=== PATIENT | male | born 1955 | race Caucasian/White ===

== ENCOUNTER 2016-06-14 14:17 | Emergency (ER) | payer OTHER ==
[2016-06-14 14:27] VITALS: BMI 32.0
--- NOTE | 2016-06-14 15:23 | PDOC ---
History of Present Illness - General Chief Complaint: Alcohol intoxication Stated Complaint: INTOX Time Seen by Provider: 06/14/16 14:41 History Source: Patient Exam Limitations: Intoxication - History of Present Illness Initial Comments: 06/14/16 15:22 61y M hx of chronic etoh abuse, dvt, brought in for intoxication pt is arousable to verbal stimulus has no complaints denies any trauma, headache, dizziness, cp, sob, cough Past History - Past History Allergies/Adverse Reactions: Allergies Fish Containing Products Allergy (Intermediate, Verified 06/14/16 14:24) Rash Home Medications: Ambulatory Orders NK [No Known Home Medication] 06/09/16 Immunization Status Up to Date: Yes Tetanus Status: Unknown - Social History Smoking History: No Smoking Status: Never smoked Number of Cigarettes Smoked Per Day: 0 Number of Cigars Per Day: 0 Review of Systems - Review of Systems Able to Perform ROS?: Yes Comments:: 06/16/16 02:17 unable to obtain due to intoxiation *Physical Exam - Vital Signs Last Vital Signs Temp Pulse Resp BP Pulse Ox 98.0 F 80 20 122/75 97 06/14/16 14:21 06/14/16 14:21 06/14/16 14:21 06/14/16 14:21 06/14/16 14:21 - Physical Exam Comments: GENERAL: The patient is sleepy, arousable to verbal stimulus, etoh on breath, dischevelled HEAD: Normocephalic, atraumatic. EYES: extraocular movements intact, sclera anicteric, conjunctiva clear. ENT: Normal voice, Moist mucous membranes. NECK: no focal tenderness LUNGS: Breath sounds equal, HEART: Regular rate and rhythm, ABDOMEN: Soft, nontender, NEUROLOGICAL: No facial assymetry, Normal speech, moving all 4 extremities spontaneously PSYCH: Normal mood, normal affect. SKIN: Warm, Dry, normal turgor, Medical Decision Making - Medical Decision Making 06/15/16 19:19 awaiting sobriety, no signs of trauma signed out to dr. miramontes to reassess the patient *DC/Admit/Observation/Transfer Diagnosis at time of Disposition: Alcohol intoxication, Alcohol abuse - Discharge Dispostion Disposition: HOME Condition at time of disposition: Stable - Patient Instructions Printed Discharge Instructions: DI for Alcohol Abuse Additional Instructions: Follow-up with primary care physician. Return to the emergency department if symptoms persist, worsen, or new symptoms arise. Please stop drinking.
--- NOTE | 2016-06-14 15:23 | PDOC ---
History of Present Illness - General Chief Complaint: Alcohol intoxication Stated Complaint: INTOX Time Seen by Provider: 06/14/16 14:41 History Source: Patient Exam Limitations: Intoxication - History of Present Illness Initial Comments: 06/14/16 15:24 61y M hx of chronic etoh abuse, mesothelioma, dvt, presents with intoxiciation. pt is well known to us here at [facility]. No complaints currently including headache, dizziness abd pain, cp, sob, extremity pain. Past History - Past Medical History Allergies/Adverse Reactions: Allergies Allergy/AdvReac Type Severity Reaction Status Date / Time Fish Containing Products Allergy Intermediate Rash Verified 06/14/16 14:24 Home Medications: Ambulatory Orders NK [No Known Home Medication] 06/09/16 Anemia: No Asthma: No Cancer: Yes (mesothelioma) Cardiac Disorders: No CVA: No COPD: No CHF: No Dementia: No Diabetes: No GI Disorders: No Disorders: No HTN: No Hypercholesterolemia: No Kidney Stones: No Liver Disease: No Psychiatric Problems: Yes (alcoholism) Suicide Attempt (Hx): No Seizures: No Thyroid Disease: No - Surgical History Abdominal Surgery: No Appendectomy: No Cardiac Surgery: No Cholecystectomy: No Lung Surgery: No Neurologic Surgery: No Orthopedic Surgery: No - Family Disease History Family Disease History: CA: Mother - Reproductive History Testicular Surgery: No - Immunization History TDAP Vaccination: Yes Immunization Up to Date: Yes - Psycho/Social/Smoking Cessation Hx Anxiety: No Suicidal Ideation: No Smoking Status: No Smoking History: Never smoked Have you smoked in the past 12 months: No Number of Cigarettes Smoked Daily: 0 Cigars Per Day: 0 'Breaking Loose' booklet given: 09/13/14 Hx Alcohol Use: Yes ([facility]) Drug/Substance Use Hx: No Substance Use Type: None Hx Substance Use Treatment: Yes ([facility]) Review of Systems - Review of Systems Able to Perform ROS?: No (intoxicated) *Physical Exam - Vital Signs Last Vital Signs Temp Pulse Resp BP Pulse Ox 98.0 F 80 20 122/75 97 06/14/16 14:21 06/14/16 14:21 06/14/16 14:21 06/14/16 14:21 06/14/16 14:21 - Physical Exam Comments: 06/14/16 15:26 GENERAL: The patient is awake, alert, etoh on breath, dischevelled HEAD: Normocephalic, atraumatic. EYES: extraocular movements intact, sclera anicteric, conjunctiva clear. NECK: Normal range of motion, supple LUNGS: Breath sounds equal, HEART: Regular rate and rhythm, ABDOMEN: Soft, nontender, No guarding, no rebound. EXTREMITIES: Normal range of motion, NEUROLOGICAL: No facial assymetry, moving all 4 extrmities spontaneously SKIN: Warm, Dry, normal turgor, Medical Decision Making - Medical Decision Making 06/14/16 15:27 will observe for sobriety no signs of acute trauma 06/14/16 19:[address] miramontes to fu with patient an dreassess *DC/Admit/Observation/Transfer Diagnosis at time of Disposition: Alcohol intoxication, Alcohol abuse - Discharge Dispostion Disposition: HOME Condition at time of disposition: Stable - Patient Instructions Printed Discharge Instructions: DI for Alcohol Abuse Additional Instructions: Follow-up with primary care physician. Return to the emergency department if symptoms persist, worsen, or new symptoms arise. Please stop drinking.
[2016-06-14 19:36] VITALS: BP 112/82; PULSE 94; TEMP 98.2
--- NOTE | 2016-06-15 06:54 | PDOC ---
*Physical Exam - Vital Signs Last Vital Signs Temp Pulse Resp BP Pulse Ox 98.2 F 94 H 18 112/82 95 06/14/16 19:35 06/14/16 19:35 06/14/16 19:35 06/14/16 19:35 06/14/16 19:35 Progress Note - Progress Note Progress Note: The patient was endorsed to me by Dr. shaa at 7 PM pending sobriety and reevaluation. The patient is awake alert and oriented 3 and ambulatory with a steady gait he is clinically sober and wants to go home. He tolerated by mouth without nausea and vomiting. He declines detoxification at this time. We'll discharge home. Follow-up with primary care physician. Return to the emergency department if symptoms persist, worsen, or new symptoms arise. *DC/Admit/Observation/Transfer Diagnosis at time of Disposition: Alcohol intoxication, Alcohol abuse - Discharge Dispostion Disposition: HOME Condition at time of disposition: Stable Admit: No - Patient Instructions Printed Discharge Instructions: DI for Alcohol Abuse Additional Instructions: Follow-up with primary care physician. Return to the emergency department if symptoms persist, worsen, or new symptoms arise. Please stop drinking.
== END 2016-06-15 06:57 | disposition home or self-care (01) ==
LOC: JER 14:17
DX: F10.220 Alcohol dependence with intoxication, uncomplicated (principal); C45.7 Mesothelioma of other sites
CPT/HCPCS: 99282-25

== ENCOUNTER 2016-06-17 18:08 | Emergency (ER) | payer OTHER ==
[2016-06-17 18:16] VITALS: BP 98/44; PULSE 92; TEMP 98; BMI 35.9
[2016-06-17] MEDS ORDERED: SODIUM CHLORIDE 1,000 ML IV STA (18:34)
[2016-06-18] MEDS ORDERED: guaiFENesin/D-METHORPHAN HB 10 ML UNIT-DOSE CUPS PO ONE (03:53)
--- NOTE | 2016-06-18 04:52 | PDOC ---
History of Present Illness - General Chief Complaint: Back Pain Stated Complaint: Alcohol intoxication Time Seen by Provider: 06/17/16 18:23 History Source: Patient Exam Limitations: No Limitations - History of Present Illness Initial Comments: 06/18/16 194 Unable to obtain full history and physical due to patient clinical condition which includes recent alcohol use. Staff informed me patient frequent this hospital daily intoxicated. Patient exhibits no sign of acute distress. Will continue to monitor and observe patient. Modifying Factors: worse with: cold therapy, eating, immobilization, medication , movement, rest, other Associated Symptoms: denies: denies symptoms, chest pain, cough, diaphoresis, fever/chills, headaches, loss of appetite, malaise, nausea/vomiting, rash, seizure, shortness of breath, syncope, weakness, other Past History - Travel Traveled outside of the country in the last 30 days: No Close contact w/someone who was outside of country & ill: No - Past Medical History Allergies/Adverse Reactions: Allergies Allergy/AdvReac Type Severity Reaction Status Date / Time Fish Containing Products Allergy Intermediate Rash Verified 06/17/16 18:10 Home Medications: Ambulatory Orders NK [No Known Home Medication] 06/09/16 Anemia: No Asthma: No Cancer: Yes (mesothelioma) Cardiac Disorders: No CVA: No COPD: No CHF: No Dementia: No Diabetes: No GI Disorders: No Disorders: No HTN: No Hypercholesterolemia: No Kidney Stones: No Liver Disease: No Psychiatric Problems: Yes (alcoholism) Suicide Attempt (Hx): No Seizures: No Thyroid Disease: No - Surgical History Abdominal Surgery: No Appendectomy: No Cardiac Surgery: No Cholecystectomy: No Lung Surgery: No Neurologic Surgery: No Orthopedic Surgery: No - Family Disease History Family Disease History: CA: Mother - Reproductive History Testicular Surgery: No - Immunization History TDAP Vaccination: Yes Immunization Up to Date: Yes - Psycho/Social/Smoking Cessation Hx Anxiety: No Suicidal Ideation: No Smoking Status: No Smoking History: Never smoked Have you smoked in the past 12 months: No Number of Cigarettes Smoked Daily: 0 Cigars Per Day: 0 Information on smoking cessation initiated: No 'Breaking Loose' booklet given: 09/13/14 Hx Alcohol Use: Yes Drug/Substance Use Hx: No Substance Use Type: Alcohol Hx Substance Use Treatment: Yes ([facility]) Review of Systems - Review of Systems Constitutional: No: Fever Respiratory: Yes: Cough. No: Shortness of Breath Cardiac (ROS): No: Chest Pain Neurological: Yes: Other (Intoxicated) Psychiatric: Yes: Depression All Other Systems: Reviewed and Negative *Physical Exam - Vital Signs Last Vital Signs Temp Pulse Resp BP Pulse Ox 98.0 F 92 H 20 98/44 98 06/17/16 18:11 06/17/16 18:11 06/17/16 18:11 06/17/16 18:11 06/17/16 18:11 - Physical Exam General Appearance: Yes: Disheveled, Intoxicated Neck: positive: Supple Respiratory/Chest: positive: Normal Breath Sounds. negative: Respiratory Distress, Accessory Muscle Use, Labored Respiration Cardiovascular: positive: Regular Rhythm, Regular Rate Musculoskeletal: positive: Normal Inspection Extremity: positive: Normal Inspection, Normal Range of Motion Integumentary: positive: Normal Color, Dry, Warm Neurologic: positive: Alert, Normal Mood/Affect, Normal Response ED Treatment Course - Medications Given in the ED: ED Medications Discontinued Medications Generic Name Dose Route Start Last Admin Trade Name Freq PRN Reason Stop Dose Admin Sodium Chloride 1,000 mls @ 1,000 mls/hr 06/17/16 18:34 06/17/16 18:43 Normal Saline - IV 06/17/16 19:33 Not Given ASDIR STA *DC/Admit/Observation/Transfer Diagnosis at time of Disposition: Alcohol dependence Qualifiers: Substance use status: with intoxication Complication of substance-induced condition: uncomplicated Qualified Code(s): F10.220 - Alcohol dependence with intoxication, uncomplicated - Discharge Dispostion Disposition: HOME Condition at time of disposition: Stable Admit: No - Patient Instructions Printed Discharge Instructions: DI for Alcohol Abuse Additional Instructions: FOLLOW UP WITH YOUR DOCTOR NEEDED. Print Language: ROMANSH
[2016-06-18] MEDS ORDERED: ALBUTEROL SO4 2.5/IPRATROPIUM 0.5 INH SOL 3 ML VIAL.NEB. NEB ONE (05:29)
== END 2016-06-18 06:32 | disposition home or self-care (01) ==
LOC: JER 18:08
PROC: 3E0337Z Introduction of Electrolytic and Water Balance Substance into Peripheral Vein, Percutaneous Approach (ICD-10-PCS; principal; 2016-06-17)
PROC: 3E0F7GC Introduction of Other Therapeutic Substance into Respiratory Tract, Via Natural or Artificial Opening (ICD-10-PCS; 2016-06-17)
DX: F10.220 Alcohol dependence with intoxication, uncomplicated (principal); C45.9 Mesothelioma, unspecified
CPT/HCPCS: 94640; 96360; 99284-25

== ENCOUNTER 2016-06-18 19:31 | Emergency (ER) | payer OTHER ==
[2016-06-18 19:38] VITALS: BP 140/80; PULSE 100; TEMP 98; BMI 34.4
--- NOTE | 2016-06-19 03:47 | PDOC ---
History of Present Illness - General History Source: Patient Exam Limitations: Intoxication - History of Present Illness Initial Comments: 06/19/16 03:50 The patient is a 61 year old male with a significant past medical history of alcohol abuse, DVT, ad mesothelioma who presents to the ED via EMS s/p fall. The patient is a frequent patient in the ED and was previously seen on 06/09/16 for alcohol intoxication. As per EMS, the patient fell prior to presentation. Patient now reports pain to the back of his head and pain to his right shoulder. Patient denies chest pain, shortness of breath, or dizziness. Denies fever, chills, nausea, vomiting or diarrhea. Patient denies any other symptoms. <Luann Medina - Last Filed: 06/19/16 06:34> - General History Source: Patient <Altaf Iniguez - Last Filed: 06/19/16 07:05> - General Chief Complaint: Alcohol intoxication Stated Complaint: ALCOHOL INTOXICATION Time Seen by Provider: 06/19/16 03:47 Past History <Luann Medina - Last Filed: 06/19/16 06:34> - Past Medical History Anemia: No Asthma: No Cancer: Yes (mesothelioma) Cardiac Disorders: No CVA: No COPD: No CHF: No Dementia: No Diabetes: No GI Disorders: No Disorders: No HTN: No Hypercholesterolemia: No Kidney Stones: No Liver Disease: No Psychiatric Problems: Yes (alcoholism) Suicide Attempt (Hx): No Seizures: No Thyroid Disease: No - Surgical History Abdominal Surgery: No Appendectomy: No Cardiac Surgery: No Cholecystectomy: No Lung Surgery: No Neurologic Surgery: No Orthopedic Surgery: No - Family Disease History Family Disease History: CA: Mother - Reproductive History Testicular Surgery: No - Immunization History TDAP Vaccination: Yes Immunization Up to Date: Yes - Psycho/Social/Smoking Cessation Hx Anxiety: No Suicidal Ideation: No Smoking Status: No Smoking History: Never smoked Have you smoked in the past 12 months: No Number of Cigarettes Smoked Daily: 0 Cigars Per Day: 0 'Breaking Loose' booklet given: 09/13/14 Hx Alcohol Use: Yes Drug/Substance Use Hx: No Substance Use Type: Alcohol Hx Substance Use Treatment: Yes ([facility]) <Altaf Iniguez - Last Filed: 06/19/16 07:05> - Past Medical History Allergies/Adverse Reactions: Allergies Allergy/AdvReac Type Severity Reaction Status Date / Time Fish Containing Products Allergy Intermediate Rash Verified 06/18/16 19:34 Home Medications: Ambulatory Orders NK [No Known Home Medication] 06/09/16 Review of Systems - Review of Systems Able to Perform ROS?: Yes Comments:: 06/19/16 03:50 CONSTITUTIONAL: No reported: Fever, Chills, Diaphoresis, Generalized Weakness, Malaise, Loss of Appetite HEENT: No reported: Rhinorrhea, Nasal Congestion, Throat Pain, Throat Swelling, Difficulty Swallowing, Mouth Swelling, Ear Pain, Eye Pain, Visual Changes CARDIOVASCULAR: No reported: Chest Pain, Syncope, Palpitations, Irregular Heart Rate, Lightheadedness, Peripheral Edema RESPIRATORY: No reported: Cough, Shortness of Breath, SOB with Exertion, Orthopnea, Wheezing , Stridor, Hemoptysis GASTROINTESTINAL: No reported: Abdominal pain, Abdominal Distension, Nausea, Vomiting, Diarrhea, Constipation, Melena, Hematochezia GENITOURINARY: No reported: Dysuria, Frequency, Urgency, Hesitancy, Flank Pain, Genital Pain MUSCULOSKELETAL: + head pain, shoulder pain No reported: Myalgia, Arthralgia, Joint Swelling, Back pain, Neck Pain SKIN: No reported: Rash, Itching, Pallor HEMEATOLOGIC/IMMUNOLOGIC: No reported: Easy Bleeding, Easy Bruising, Lymphadenopathy, Frequent infections ENDOCRINE: No reported: Unexplained Weight Gain, Unexplained Weight Loss, Heat Intolerance , Cold Intolerance NEUROLOGIC: No reported: Focal Weakness, Paresthesias, Vertigo, Lightheadedness, Unsteady Gait, Seizure, Mental Status Changes, Incontinence PSYCHIATRIC: No reported: Anxiety, Depression <Luann Medina - Last Filed: 06/19/16 06:34> *Physical Exam - Vital Signs Last Vital Signs Temp Pulse Resp BP Pulse Ox 98 F 100 H 18 140/80 97 06/18/16 19:35 06/18/16 19:35 06/18/16 19:35 06/18/16 19:35 06/18/16 19:35 - Physical Exam Comments: 06/19/16 03:50 GENERAL: The patient is awake, alert, and fully oriented, Nontoxic - in no acute distress. HEAD: + Hematoma to the right occipital region.. EYES: extraocular movements intact, sclera anicteric, conjunctiva clear. ENT: Normal voice, Moist mucous membranes. NECK: Normal range of motion, supple LUNGS: Breath sounds equal, clear to auscultation bilaterally. No wheezes, no rhonchi, no rales. HEART: Regular rate and rhythm, without murmur, rub or gallop. ABDOMEN: Soft, nontender, normoactive bowel sounds. No guarding, no rebound.No CVA tenderness EXTREMITIES:+ mild diffuse tenderness of right shoulder but has range of motion. no edema. No clubbing or cyanosis. No cords, erythema. NEUROLOGICAL: No facial assymetry, Normal speech, PSYCH: Normal mood, normal affect. SKIN: Warm, Dry, normal turgor, <Luann Medina - Last Filed: 06/19/16 06:34> - Vital Signs Last Vital Signs Temp Pulse Resp BP Pulse Ox 98 F 100 H 18 140/80 97 06/18/16 19:35 06/18/16 19:35 06/18/16 19:35 06/18/16 19:35 06/18/16 19:35 <Altaf Iniguez - Last Filed: 06/19/16 07:05> Heart Score/ECG Review - ECG Impressions Comment:: 06/19/16 06:34 NSR @ 1100 bpm Left axis deviation Septal infarct, age undetermined Abnormal ECG <Luann Medina - Last Filed: 06/19/16 06:34> Medical Decision Making - Medical Decision Making 06/19/16 07:04 Dr. Iniguez: The scribe's documentation has been prepared under my direction and personally reviewed by me in its entirery. I confirm that the note above accurately reflects all work, treatment, procedures, and medical decision making performed by me. <Altaf Iniguez - Last Filed: 06/19/16 07:05> *DC/Admit/Observation/Transfer - Attestations Scribe Attestion: 06/19/16 03:51 Documentation prepared by Luann Medina, acting as paramedical aide for Altaf Iniguez MD/DO. <Luann Medina - Last Filed: 06/19/16 06:34> - Discharge Dispostion Admit: No <Altaf Iniguez - Last Filed: 06/19/16 07:05> Diagnosis at time of Disposition: Alcohol abuse - Discharge Dispostion Disposition: HOME Condition at time of disposition: Stable - Patient Instructions Printed Discharge Instructions: DI for Alcohol Abuse
[2016-06-19] MEDS ORDERED: chlordiazePOXIDE HCL 25 MG CAPSULE PO ONE (06:09)
[2016-06-19] MEDS: POTASSIUM CHLORIDE TABS 20 MEQ TABLET.ER (FP) PO ONE ×2 (06:10→06:18)
--- NOTE | 2016-06-19 16:34 | EKG ---
Test Reason : Blood Pressure : / mmHG Vent. Rate : 100 BPM Atrial Rate : 100 BPM P-R Int : 198 ms QRS Dur : 090 ms QT Int : 370 ms P-R-T Axes : 069 -50 041 degrees QTc Int : 477 ms NORMAL SINUS RHYTHM LEFT AXIS DEVIATION SEPTAL INFARCT , AGE UNDETERMINED ABNORMAL ECG WHEN COMPARED WITH ECG OF 29-MAY-2016 16:30, NO SIGNIFICANT CHANGE WAS FOUND Confirmed by ANGELINA HYLTON MD ([id number]) on 06/19/2016 4:34:40 PM Referred By: Confirmed By:ANGELINA HYLTON MD
== END 2016-06-19 07:06 | disposition home or self-care (01) ==
LOC: JER 19:31
DX: F10.220 Alcohol dependence with intoxication, uncomplicated (principal); M25.511 Pain in right shoulder; S00.83XA Contusion of other part of head, initial encounter; W19.XXXA Unspecified fall, initial encounter; Y93.89 Activity, other specified; Y92.89 Other specified places as the place of occurrence of the external cause; Y99.8 Other external cause status
CPT/HCPCS: 93005; 93010; 99282-25

== ENCOUNTER 2016-06-19 18:46 | Emergency (ER) | payer OTHER ==
[2016-06-19 19:03] VITALS: BMI 28.7
--- NOTE | 2016-06-20 02:55 | PDOC ---
History of Present Illness - General Chief Complaint: Alcohol intoxication Stated Complaint: ALCOHOL INTOXICATION Time Seen by Provider: 06/19/16 22:24 History Source: Patient, EMS Exam Limitations: Clinical Condition - History of Present Illness Initial Comments: 06/20/16 02:54 Patient is 61-year-old male with history of mesothelioma, alcohol abuse, well- known to this M.D., brought in by EMS for acute alcohol intoxication. Patient denies concurrent trauma. Patient denies chest pain/abdominal pain/nausea/ vomiting/diarrhea/melena/bright red blood per rectum. REVIEW OF SYSTEMS CONSTITUTIONAL: No fever, no chills, no fatigue EYES: No visual changes ENT: No ear pain, no sore throat CARDIOVASCULAR: No chest pain, no palpitations RESPIRATORY: No cough, no SOB GI: No abdominal pain, no nausea, no vomiting, no constipation, no diarrhea GENITOURINARY: No dysuria, no frequency, no hematuria MUSKULOSKELETAL: No backpain, no joint pain, no myalgias SKIN: No rash NEURO: No headache EXAMINATION CONSTITUTIONAL: Patient is lethargic but easily arousable, follows commands, responds appropriately; well-nourished; in no apparent distress HEAD: Normocephalic; atraumatic EYES: PERRL; EOM intact ENMT: External appears normal; normal oropharynx NECK: Supple; non-tender; no cervical lymphadenopathy CARD: Normal S1, S2; no murmurs, rubs, or gallops RESP: Normal chest excursion with respiration; breath sounds clear and equal bilaterally; no wheezes, rhonchi, or rales ABD: Soft, non-distended; non-tender; no palpable organomegaly, no palpable hernias EXT: Normal ROM in all four extremities; non-tender to palpation; distal pulses intact SKIN: Warm, dry, no rash NEURO: Lethargic but arousable, oriented to self, place and time; moving all tremors symmetrically, follows commands, gait-deferred at this time. Past History - Past Medical History Allergies/Adverse Reactions: Allergies Allergy/AdvReac Type Severity Reaction Status Date / Time Fish Containing Products Allergy Intermediate Rash Verified 06/19/16 19:03 Home Medications: Ambulatory Orders NK [No Known Home Medication] 06/09/16 Anemia: No Asthma: No Cancer: Yes (mesothelioma) Cardiac Disorders: No CVA: No COPD: No CHF: No Dementia: No Diabetes: No GI Disorders: No Disorders: No HTN: No Hypercholesterolemia: No Kidney Stones: No Liver Disease: No Psychiatric Problems: Yes (alcoholism) Suicide Attempt (Hx): No Seizures: No Thyroid Disease: No - Surgical History Abdominal Surgery: No Appendectomy: No Cardiac Surgery: No Cholecystectomy: No Lung Surgery: No Neurologic Surgery: No Orthopedic Surgery: No - Family Disease History Family Disease History: CA: Mother - Reproductive History Testicular Surgery: No - Immunization History TDAP Vaccination: Yes Immunization Up to Date: Yes - Psycho/Social/Smoking Cessation Hx Anxiety: No Suicidal Ideation: No Smoking Status: No Smoking History: Never smoked Have you smoked in the past 12 months: No Number of Cigarettes Smoked Daily: 0 Cigars Per Day: 0 Information on smoking cessation initiated: No 'Breaking Loose' booklet given: 09/13/14 Hx Alcohol Use: Yes (DAILY) Drug/Substance Use Hx: No Substance Use Type: None Hx Substance Use Treatment: Yes ([facility]) *Physical Exam - Vital Signs Last Vital Signs Temp Pulse Resp BP Pulse Ox 97.9 F 86 18 101/74 94 L 06/19/16 18:59 06/19/16 18:59 06/19/16 18:59 06/19/16 18:59 06/19/16 18:59 Medical Decision Making - Medical Decision Making 06/20/16 02:55 Patient 61-year-old male with history of alcohol abuse who presents with signs and symptoms of acute alcohol intoxication. Will follow clinical sobriety. Will discharge when able to ambulate without difficulty. *DC/Admit/Observation/Transfer Diagnosis at time of Disposition: Alcohol abuse - Discharge Dispostion Disposition: HOME - Patient Instructions Printed Discharge Instructions: DI for Alcohol Abuse
[2016-06-20 03:17] VITALS: BP 136/82; PULSE 88; TEMP 98.6
[2016-06-20] MEDS ORDERED: POTASSIUM CHLORIDE TABS 20 MEQ TABLET.ER (FP) PO ONE (05:42)
[2016-06-20] MEDS ORDERED: chlordiazePOXIDE HCL 25 MG CAPSULE PO ONE (05:42)
[2016-06-20] MEDS ORDERED: chlordiazePOXIDE HCL 25 MG CAPSULE ONE (05:58)
[2016-06-20] MEDS ORDERED: POTASSIUM CHLORIDE TABS 10 MEQ TABLET.ER (FP) ONE (05:59)
--- NOTE | 2016-06-20 06:52 | PDOC ---
*Physical Exam - Vital Signs Last Vital Signs Temp Pulse Resp BP Pulse Ox 98.6 F 88 18 136/82 97 06/20/16 03:16 06/20/16 03:16 06/20/16 03:16 06/20/16 03:16 06/20/16 03:16 ED Treatment Course - Medications Given in the ED: ED Medications Discontinued Medications Generic Name Dose Route Start Last Admin Trade Name Freq PRN Reason Stop Dose Admin Chlordiazepoxide HCl 50 mg 06/20/16 05:42 06/20/16 06:04 Librium - PO 06/20/16 05:43 50 mg ONCE ONE Administration Potassium Chloride 40 meq 06/20/16 05:42 06/20/16 06:04 K-Dur - PO 06/20/16 05:43 Not Given ONCE ONE *DC/Admit/Observation/Transfer Diagnosis at time of Disposition: Alcohol abuse - Discharge Dispostion Disposition: HOME Condition at time of disposition: Stable Admit: No - Patient Instructions Printed Discharge Instructions: DI for Alcohol Abuse
== END 2016-06-20 06:30 | disposition home or self-care (01) ==
LOC: JER 18:46
DX: F10.220 Alcohol dependence with intoxication, uncomplicated (principal)
CPT/HCPCS: 99281-25

== ENCOUNTER 2016-06-20 16:55 | Emergency (ER) | payer OTHER ==
[2016-06-20 17:23] VITALS: BP 130/56; PULSE 86; TEMP 98.7; BMI 35.9
--- NOTE | 2016-06-20 20:33 | PDOC ---
History of Present Illness - General Chief Complaint: Headache Stated Complaint: INTOXICATED/BACK PAIN Time Seen by Provider: 06/20/16 20:33 Past History - Past Medical History Allergies/Adverse Reactions: Allergies Allergy/AdvReac Type Severity Reaction Status Date / Time Fish Containing Products Allergy Intermediate Rash Verified 06/20/16 17:16 Home Medications: Ambulatory Orders NK [No Known Home Medication] 06/09/16 Anemia: No Asthma: No Cancer: Yes (mesothelioma) Cardiac Disorders: No CVA: No COPD: No CHF: No Dementia: No Diabetes: No GI Disorders: No Disorders: No HTN: No Hypercholesterolemia: No Kidney Stones: No Liver Disease: No Psychiatric Problems: Yes (alcoholism) Suicide Attempt (Hx): No Seizures: No Thyroid Disease: No - Surgical History Abdominal Surgery: No Appendectomy: No Cardiac Surgery: No Cholecystectomy: No Lung Surgery: No Neurologic Surgery: No Orthopedic Surgery: No - Family Disease History Family Disease History: CA: Mother - Reproductive History Testicular Surgery: No - Immunization History TDAP Vaccination: Yes Immunization Up to Date: Yes - Psycho/Social/Smoking Cessation Hx Anxiety: No Suicidal Ideation: No Smoking Status: No Smoking History: Never smoked Have you smoked in the past 12 months: No Number of Cigarettes Smoked Daily: 0 Cigars Per Day: 0 Information on smoking cessation initiated: No 'Breaking Loose' booklet given: 09/13/14 Hx Alcohol Use: Yes Drug/Substance Use Hx: No Substance Use Type: None Hx Substance Use Treatment: Yes ([facility]) *Physical Exam - Vital Signs Last Vital Signs Temp Pulse Resp BP Pulse Ox 98.7 F 86 20 130/56 94 L 06/20/16 17:18 06/20/16 17:18 06/20/16 17:18 06/20/16 17:18 06/20/16 17:18 ED Treatment Course - LABORATORY CBC & Chemistry Diagram: 06/20/16 22:00 06/20/16 22:00 Medical Decision Making - Medical Decision Making 06/21/16 01:20 pt comes with alcohol intoxication; cold outside and he wants to sleep here. He has complaint of back pain. No other complaints. However, recently, patient 's Potassium has been running low as he is a chronic alcoholic and he likely eats very little nutritious food. As a result I checked his labs. In fact pt is hyponatremic; He was given a banana bag, magnesium IV and potassium IV and PO. Pt is sleeping comfortably. I have passed by him multiple times so far throughout the shift, and he is snoring comfortably; also when he awakes, he asks me to adjust the height of the head of his stretcher. Pt is stable. 06/21/16 22:06 Pt sobered up and walked out of the ER as he usually does; IV was removed prior to his walking out. *DC/Admit/Observation/Transfer Diagnosis at time of Disposition: Alcohol intoxication
[2016-06-20] MEDS ORDERED: MAGNESIUM SULF 50% (8.12 MEQ/2 ML-1 GM VIAL) IVPB ONE (20:36)
[2016-06-20] MEDS ORDERED: FOLIC ACID INJECTION - 1 MG, THIAMINE HCL 100 MG, MULTIVIT INJECTION ADULT 10 ML in SOD... IVPB ONE (20:37)
[2016-06-20 22:11] LABS: BASOPHIL 0.3 % (0-2.0); EOSINOPHIL 3.6 % (0-4.5); MCH 30.3 pg (25.7-33.7); MCHC 32.1 g/dl (32.0-35.9); MEAN CELL VOLUME 94.4 fl (80-96); MEAN PLT VOLUME 7.2 fl (7.5-11.1); NEUTROPHILS 51.2 % (42.8-82.8); PLATELET COUNT 240 K/MM3 (134-434); RDW 17.7 % (11.9-15.9); WHITE BLOOD COUNT 5.1 K/mm3 (4.0-10.0)
[2016-06-20 22:42] LABS: ALBUMIN 3.1 g/dl (3.4-5.0); ANION GAP 12 (8-16); CO2 29 mmol/L (21-32); CREATININE 0.6 mg/dL (0.7-1.3); GLUCOSE,RANDOM 82 mg/dL (74-106); SGOT/AST 75 U/L (15-37); SGPT/ALT 40 U/L (12-78)
[2016-06-20 22:44] LABS: ALK PHOS 122 U/L (45-117); BILIRUBIN,TOTAL 0.5 mg/dL (0.2-1.0); TOT PROT 6.2 g/dl (6.4-8.2)
[2016-06-20] MEDS ORDERED: MAGNESIUM SULF 50% (8.12 MEQ/2 ML-1 GM VIAL) ONE (23:32)
[2016-06-20] MEDS ORDERED: KCL 10 MEQ IVPB 100 ML IVPB ONE (23:32)
[2016-06-21] MEDS ORDERED: KCL 10 MEQ IVPB 100 ML IVPB ONE (01:12)
[2016-06-21] MEDS: KCL 10 MEQ IVPB 100 ML IVPB SCH ×2 (01:29→02:07)
[2016-06-21] MEDS: POTASSIUM CHLORIDE TABS 20 MEQ TABLET.ER (FP) PO ONE ×2 (01:29→01:38)
[2016-06-21] MEDS ORDERED: POTASSIUM CHLORIDE TABS 20 MEQ TABLET.ER (FP) PO ONE (01:32)
== END 2016-06-21 05:55 | disposition home or self-care (01) ==
LOC: JER 16:55
PROC: 3E033GC Introduction of Other Therapeutic Substance into Peripheral Vein, Percutaneous Approach (ICD-10-PCS; principal; 2016-06-20)
PROC: 3E033GC Introduction of Other Therapeutic Substance into Peripheral Vein, Percutaneous Approach (ICD-10-PCS; 2016-06-20)
PROC: 3E033GC Introduction of Other Therapeutic Substance into Peripheral Vein, Percutaneous Approach (ICD-10-PCS; 2016-06-20)
DX: F10.220 Alcohol dependence with intoxication, uncomplicated (principal); E87.1 Hypo-osmolality and hyponatremia; C45.7 Mesothelioma of other sites
CPT/HCPCS: 36415; 80053; 80307; 85025; 96365; 96366; 96367; 96375; 99281-25

== ENCOUNTER 2016-06-22 05:58 | Emergency (ER) | payer OTHER ==
[2016-06-22 06:21] VITALS: PULSE 83; TEMP 97.1; BMI 33.7
[2016-06-22 06:45] VITALS: BP 167/93
--- NOTE | 2016-06-22 07:16 | PDOC ---
[id number] Initial Comments: 06/22/16 07:21 The patient is a 61-year-old man with a significant past medical history of alcohol abuse and mesothelioma who presents to the emergency department via EMS for further evaluation of chest pain. He does not provide the nature of the pain or provide exacerbating/alleviating factors, but states that his chest pain started this morning and it is associated with shortness of breath. He recalls having a similar episode a few years ago, but does not recall the events /outcomes. He also admits that his last drink was yesterday and he is starting to experience chills, tremors and nausea. Allergies: Fish Containing Products. Past Surgical History: None reported Social History: No tobacco and recreational drug use. History of alcohol abuse. <Caro Mora - Last Filed: 06/22/16 09:53> <Fabiana Woodard - Last Filed: 06/22/16 10:17> - General Chief Complaint: Chest Pain Stated Complaint: CHEST PAIN Time Seen by Provider: 06/22/16 07:13 Past History <Caro Mora - Last Filed: 06/22/16 09:53> - Past Medical History Anemia: No Asthma: No Cancer: Yes (mesothelioma) Cardiac Disorders: No CVA: No COPD: No CHF: No Dementia: No Diabetes: No GI Disorders: No Disorders: No HTN: No Hypercholesterolemia: No Kidney Stones: No Liver Disease: No Psychiatric Problems: Yes (alcoholism) Suicide Attempt (Hx): No Seizures: No Thyroid Disease: No - Surgical History Abdominal Surgery: No Appendectomy: No Cardiac Surgery: No Cholecystectomy: No Lung Surgery: No Neurologic Surgery: No Orthopedic Surgery: No - Family Disease History Family Disease History: CA: Mother - Reproductive History Testicular Surgery: No - Immunization History TDAP Vaccination: Yes Immunization Up to Date: Yes - Psycho/Social/Smoking Cessation Hx Anxiety: No Suicidal Ideation: No Smoking Status: No Smoking History: Never smoked Have you smoked in the past 12 months: No Number of Cigarettes Smoked Daily: 0 Cigars Per Day: 0 Information on smoking cessation initiated: No 'Breaking Loose' booklet given: 09/13/14 Hx Alcohol Use: No Drug/Substance Use Hx: No Substance Use Type: None Hx Substance Use Treatment: Yes ([facility]) <Fabiana Woodard - Last Filed: 06/22/16 10:17> - Past Medical History Allergies/Adverse Reactions: Allergies Allergy/AdvReac Type Severity Reaction Status Date / Time Fish Containing Products Allergy Intermediate Rash Verified 06/22/16 06:18 Home Medications: Ambulatory Orders NK [No Known Home Medication] 06/09/16 Review of Systems - Review of Systems Able to Perform ROS?: Yes Comments:: 06/22/16 07:21 GENERAL/CONSTITUTIONAL: Yes: +Chills. +Tremors. No fever. No weakness. HEAD, EYES, EARS, NOSE AND THROAT: No change in vision. No ear pain or discharge. No sore throat. CARDIOVASCULAR: Yes: +Chest pain. +Shortness of breath. RESPIRATORY: No cough, wheezing, or hemoptysis. GASTROINTESTINAL: Yes: +Nausea. No vomiting, diarrhea or constipation. GENITOURINARY: No dysuria, frequency, or change in urination. MUSCULOSKELETAL: No joint or muscle swelling or pain. No neck or back pain. SKIN: No rash NEUROLOGIC: Yes: +Tremors. No headache, vertigo, loss of consciousness, or change in strength/sensation. ENDOCRINE: No increased thirst. No abnormal weight change. HEMATOLOGIC/LYMPHATIC: No anemia, easy bleeding, or history of blood clots. ALLERGIC/IMMUNOLOGIC: No hives or skin allergy. <Caro Mora - Last Filed: 06/22/16 09:53> *Physical Exam - Vital Signs Last Vital Signs Temp Pulse Resp BP Pulse Ox 97.1 F L 83 20 167/93 100 06/22/16 06:18 06/22/16 06:18 06/22/16 06:18 06/22/16 06:45 06/22/16 06:18 - Physical Exam Comments: 06/22/16 07:21 GENERAL: Awake, alert. In no acute distress HEAD: No signs of trauma EYES: PERRLA, EOMI, sclera anicteric, conjunctiva clear NECK: Normal ROM, supple, no lymphadenopathy, JVD, or masses LUNGS: Breath sounds equal, clear to auscultation bilaterally. No wheezes, and no crackles HEART: +Occasional extra-systole. No murmurs, rubs or gallops ABDOMEN: Soft, nontender, normoactive bowel sounds. No guarding, no rebound. No masses EXTREMITIES: +Tremors in the hands, bilaterally. Normal range of motion, no edema. No clubbing or cyanosis. No cords, erythema, or tenderness NEUROLOGICAL: Cranial nerves II through XII grossly intact. Normal speech <Caro Mora - Last Filed: 06/22/16 09:53> - Vital Signs Last Vital Signs Temp Pulse Resp BP Pulse Ox 97.1 F L 83 20 167/93 100 06/22/16 06:18 06/22/16 06:18 06/22/16 06:18 06/22/16 06:45 06/22/16 06:18 <Fabiana Woodard - Last Filed: 06/22/16 10:17> ED Treatment Course - LABORATORY CBC & Chemistry Diagram: 06/22/16 08:00 06/22/16 08:00 - RADIOLOGY Radiograph Interpretation: 06/22/16 09:53 EXAM: RAD/CHEST X-RAY PORTABLE IMPRESSION: Single view the chest reveals slight rotation, degenerative changes , prominent mediastinum large heart and unfolded aorta along with some increased central markings and some new pleural fluid at the right base since . <Caro Mora - Last Filed: 06/22/16 09:53> - LABORATORY CBC & Chemistry Diagram: 06/22/16 08:00 06/22/16 08:00 <Fabiana Woodard - Last Filed: 06/22/16 10:17> Medical Decision Making - Medical Decision Making 06/22/16 10:14 Pt reports improvement in symptoms. He received most of the magnesium, refused the calcium. Refuses inpatient evaluation. Refuses to sign discharge paperwork. <Fabiana Woodard - Last Filed: 06/22/16 10:17> *DC/Admit/Observation/Transfer - Attestations Scribe Attestion: 06/22/16 07:21 Documentation prepared by Caro Mora, acting as lead medical technologist for Fabiana Woodard MD. <Caro Mora - Last Filed: 06/22/16 09:53> - Discharge Dispostion Admit: No <Fabiana Woodard - Last Filed: 06/22/16 10:17> Diagnosis at time of Disposition: Alcohol abuse, Atypical chest pain - Discharge Dispostion Disposition: AGAINST MEDICAL ADVICE Condition at time of disposition: Stable - Referrals Referrals: Garima Bridges MD [Primary Care Provider] - - Patient Instructions Printed Discharge Instructions: DI for Alcohol Abuse, DI for Chest Pain
[2016-06-22] MEDS ORDERED: chlordiazePOXIDE HCL 25 MG CAPSULE PO ONE (07:21)
[2016-06-22] MEDS ORDERED: SODIUM CHLORIDE 1,000 ML IV STA (07:21)
[2016-06-22] MEDS ORDERED: diazePAM CARPU-JECT 10 MG/2 ML DISP.SYRIN IVPUSH ONE (07:21)
[2016-06-22] MEDS ORDERED: diazePAM CARPU-JECT 10 MG/2 ML DISP.SYRIN ONE (07:38)
[2016-06-22] MEDS ORDERED: chlordiazePOXIDE HCL 25 MG CAPSULE ONE (07:38)
[2016-06-22 08:18] LABS: BASOPHIL 0.9 % (0-2.0); EOSINOPHIL 2.4 % (0-4.5); MCH 30.7 pg (25.7-33.7); MCHC 32.4 g/dl (32.0-35.9); MEAN CELL VOLUME 94.8 fl (80-96); MEAN PLT VOLUME 7.7 fl (7.5-11.1); NEUTROPHILS 65.7 % (42.8-82.8); PLATELET COUNT 210 K/MM3 (134-434); RDW 17.9 % (11.9-15.9); WHITE BLOOD COUNT 5.9 K/mm3 (4.0-10.0)
[2016-06-22 08:43] LABS: ALBUMIN 3.3 g/dl (3.4-5.0); ANION GAP 10 (8-16); BILIRUBIN,TOTAL 1.1 mg/dL (0.2-1.0); CALCIUM 8.2 mg/dL (8.5-10.1); CO2 31 mmol/L (21-32); CREATININE 0.6 mg/dL (0.7-1.3); GLUCOSE,RANDOM 75 mg/dL (74-106); MAGNESIUM 1.2 mg/dL (1.8-2.4); PHOSPHOROUS 3.1 mg/dL (2.5-4.9); SGPT/ALT 40 U/L (12-78); TOT PROT 6.6 g/dl (6.4-8.2)
[2016-06-22 08:46] LABS: ALK PHOS 127 U/L (45-117); TROPONIN I < 0.02 ng/ml (0.00-0.05)
[2016-06-22 08:48] LABS: SGOT/AST 90 U/L (15-37)
[2016-06-22] MEDS ORDERED: ASPIRIN 81 MG CHEWABLE TABLETS PO ONE (08:48)
[2016-06-22] MEDS ORDERED: CALCIUM GLUCONATE 10% - 1,000 MG/10 ML VIAL IVPB ONE (08:55)
[2016-06-22] MEDS ORDERED: MAGNESIUM SULF 50% (8.12 MEQ/2 ML-1 GM VIAL) IVPB ONE (08:55)
[2016-06-22] MEDS ORDERED: ASPIRIN 81 MG CHEWABLE TABLETS ONE (08:55)
[2016-06-22] MEDS ORDERED: MAGNESIUM SULF 50% (8.12 MEQ/2 ML-1 GM VIAL) ONE (08:59)
[2016-06-22] MEDS ORDERED: CALCIUM GLUCONATE 10% - 1,000 MG/10 ML VIAL ONE (08:59)
--- NOTE | 2016-06-22 23:52 | EKG ---
Test Reason : Blood Pressure : / mmHG Vent. Rate : 082 BPM Atrial Rate : 082 BPM P-R Int : 146 ms QRS Dur : 096 ms QT Int : 422 ms P-R-T Axes : 049 -36 044 degrees QTc Int : 493 ms NORMAL SINUS RHYTHM LEFT AXIS DEVIATION PROLONGED QT ABNORMAL ECG WHEN COMPARED WITH ECG OF 19-JUN-2016 06:06, CRITERIA FOR SEPTAL INFARCT ARE NO LONGER PRESENT Confirmed by CONCETTA RICHMOND, ANGELINA ([id number]) on 06/22/2016 11:52:40 PM Referred By: Confirmed By:ANGELINA HYLTON MD
== END 2016-06-22 09:59 | disposition left against medical advice (07) ==
LOC: JER 05:58
PROC: 3E033NZ Introduction of Analgesics, Hypnotics, Sedatives into Peripheral Vein, Percutaneous Approach (ICD-10-PCS; principal; 2016-06-22)
PROC: 3E033GC Introduction of Other Therapeutic Substance into Peripheral Vein, Percutaneous Approach (ICD-10-PCS; 2016-06-22)
DX: F10.20 Alcohol dependence, uncomplicated (principal); R07.89 Other chest pain; C45.7 Mesothelioma of other sites
CPT/HCPCS: 36415; 71010-TC; 80053; 82550; 82553; 83735; 84100; 84484; 85025; 93005; 93010; 96374; 96375; 99283-25

== ENCOUNTER 2016-06-22 21:13 | Emergency (ER) | payer OTHER ==
[2016-06-22 21:25] VITALS: BP 120/79; PULSE 71; TEMP 97.5; BMI 34.4
--- NOTE | 2016-06-22 22:09 | PDOC ---
History of Present Illness - General Chief Complaint: Back Pain Stated Complaint: BACK PAIN Time Seen by Provider: 06/22/16 22:07 Past History - Past Medical History Allergies/Adverse Reactions: Allergies Allergy/AdvReac Type Severity Reaction Status Date / Time Fish Containing Products Allergy Intermediate Rash Verified 06/22/16 06:18 Home Medications: Ambulatory Orders NK [No Known Home Medication] 06/09/16 Anemia: No Asthma: No Cancer: Yes (mesothelioma) Cardiac Disorders: No CVA: No COPD: No CHF: No Dementia: No Diabetes: No GI Disorders: No Disorders: No HTN: No Hypercholesterolemia: No Kidney Stones: No Liver Disease: No Psychiatric Problems: Yes (alcoholism) Suicide Attempt (Hx): No Seizures: No Thyroid Disease: No - Surgical History Abdominal Surgery: No Appendectomy: No Cardiac Surgery: No Cholecystectomy: No Lung Surgery: No Neurologic Surgery: No Orthopedic Surgery: No - Family Disease History Family Disease History: CA: Mother - Reproductive History Testicular Surgery: No - Immunization History TDAP Vaccination: Yes Immunization Up to Date: Yes - Psycho/Social/Smoking Cessation Hx Anxiety: No Suicidal Ideation: No Smoking Status: No Smoking History: Current some day smoker Have you smoked in the past 12 months: No Number of Cigarettes Smoked Daily: 0 Cigars Per Day: 0 Information on smoking cessation initiated: No 'Breaking Loose' booklet given: 09/13/14 Hx Alcohol Use: Yes (daily) Drug/Substance Use Hx: No Substance Use Type: None Hx Substance Use Treatment: Yes ([facility]) Review of Systems - Review of Systems Constitutional: No: Symptoms Reported, See HPI, Chills, Diaphoresis, Fever, Loss of Appetite, Malaise, Night Sweats, Weakness, Weight Stable, Unintentional Wgt. Loss, Unexplained wgt Loss, Other HEENTM: No: Symptoms Reported, See HPI, Eye Pain, Blurred Vision, Tearing, Recent change in vision, Double Vision, Cataracts, Ear Pain, Ocular Prothesis, Ear Discharge, Nose Pain, Nose Congestion, Tinnitus, Nose Bleeding, Hearing Loss , Throat Pain, Throat Swelling, Mouth Pain, Dental Problems, Difficulty Swallowing, Mouth Swelling, Other Respiratory: No: Symptoms reported, See HPI, Cough, Orthopnea, Shortness of Breath, SOB with Exertion, SOB at Rest, Stridor, Wheezing, Productive cough, Hemoptysis, Other Cardiac (ROS): No: Symptoms Reported, See HPI, Chest Pain, Edema, Irregular Heart Rate, Lightheadedness, Palpitations, Syncope, Chest Tightness, Other ABD/GI: No: Symptoms Reported, See HPI, Abdominal Distended, Abd. Pain w/ defecation, Blood Streaked Bowels, Constipated, Diarrhea, Difficulty Swallowing , Nausea, Poor Appetite, Poor Fluid Intake, Rectal Bleeding, Vomiting, Indigestion, Abdominal cramping, Tarry Stools, Other : No: Symptoms Reported, See HPI, Burning, Dysuria, Discharge, Frequency, Flank Pain, Hematuria, Incontinence, Pain, Urgency, Testicular Mass, Testicular Swelling, Lesions, Testicular Pain, Other Musculoskeletal: Yes: Joint Pain, Muscle Pain, Joint Stiffness Integumentary: No: Symptoms Reported, See HPI, Bruising, Change in Color, Change in Hair/Nails, Dryness, Erythema, Flushing, Lesions, Lumps, Pallor, Pruritus, Rash, Sweating, Other Neurological: No: Symptoms reported, See HPI, Headache, Numbness, Paresthesia, Pre-Existing Deficit, Seizure, Tingling, Tremors, Weakness, Unsteady Gait, Ataxia, Dizziness, Other *Physical Exam - Vital Signs Last Vital Signs Temp Pulse Resp BP Pulse Ox 97.5 F L 71 18 120/79 95 06/22/16 21:23 06/22/16 21:23 06/22/16 21:23 06/22/16 21:23 06/22/16 21:23 - Physical Exam General Appearance: Yes: Nourished HEENT: positive: EOMI, DOUGLAS, Normal Voice, Pharynx Normal Neck: positive: Supple Respiratory/Chest: positive: Lungs Clear, Normal Breath Sounds Cardiovascular: positive: Regular Rhythm, Regular Rate, S1, S2 Gastrointestinal/Abdominal: positive: Normal Bowel Sounds, Protuberent Neurologic: positive: engineer technician II-XII NML intact, Fully Oriented, Alert, Normal Mood/ Affect, Normal Response, Motor Strength 5/5 Medical Decision Making - Medical Decision Making 06/23/16 02:44 Pt is slightly drunk; known alcohoolic here every day this week with the cold weather. HEALTH CARE COORDINATOR at [facility] alcohol detox accepted the patient for admission. *DC/Admit/Observation/Transfer Diagnosis at time of Disposition: Alcohol abuse, Alcohol intoxication - Discharge Dispostion Disposition: I.P. ALCOHOL/SUBS ABUSE REHAB Condition at time of disposition: Stable - Referrals Referrals: Chari Bridges [Primary Care Provider] -
[2016-06-22] MEDS ORDERED: chlordiazePOXIDE HCL 25 MG CAPSULE PO ONE (22:10)
== END 2016-06-22 23:31 | disposition other institution (70) ==
LOC: JER 21:13
DX: F10.220 Alcohol dependence with intoxication, uncomplicated (principal); Y90.9 Presence of alcohol in blood, level not specified; Z86.018 Personal history of other benign neoplasm
CPT/HCPCS: 99281-25

== ENCOUNTER 2016-06-23 00:43 | Inpatient (IN) | payer OTHER ==
--- NOTE | 2016-06-23 06:14 | HP ---
CIWA Score - CIWA Score Nausea/Vomitin-Mild Nausea/No Vomiting Muscle Tremors: 3 Anxiety: 4-Mod. Anxious/Guarded Agitation: 4-Moderately Restless Paroxysmal Sweats: 2 Orientation: 1-Uncertain about Date Tacttile Disturbances: 2-Mild Itch/Numbness/Burn Auditory Disturbances: 0-None Visual Disturbances: 0-None Headache: 2-Mild CIWA-Ar Total Score: 19 Admission ROS [facility] - HPI Chief Complaint: WITHDRAWAL SYMPTOMS Allergies/Adverse Reactions: Allergies Allergy/AdvReac Type Severity Reaction Status Date / Time Fish Containing Products Allergy Intermediate Rash Verified 06/22/16 06:18 History of Present Illness: 61 Y.O. MAN WITH AN EXTENSIVE HISTORY OF ALCOHOL DEPENDENCE IS SEEKING DETOX. HE WAS TRANSFERRED FROM [facility] WHERE HE WAS BEING EVALUATED DUE TO COMPLAINTS OF CHEST AND BACK PAIN. PRIOR TO THIS, THE PATIENT HAS BEEN TO ER MULTIPLE TIMES FOR INTOXICATION. Exam Limitations: Intoxication - Ebola screening Have you traveled outside of the country in the last 21 days: No - Review of Systems Constitutional: Chills, Diaphoresis, Night Sweats, Changes in sleep, Weight Stable EENT: reports: No Symptoms Reported Respiratory: reports: Cough Cardiac: reports: Chest Pain, Lightheadedness, Palpitations GI: reports: Nausea : reports: Frequency Musculoskeletal: reports: Back Pain, Joint Pain, Muscle Pain, Muscle Weakness, Joint Stiffness Integumentary: reports: Dryness Neuro: reports: Headache, Numbness, Tingling, Tremors, Dizziness Endocrine: reports: No Symptoms Reported Hematology: reports: No Symptoms Reported Psychiatric: reports: No Sypmtoms Reported Other Systems: Reviewed and Negative Patient History - Patient Medical History Hx Anemia: No Hx Asthma: No Hx Chronic Obstructive Pulmonary Disease (COPD): No Hx Cancer: Yes (mesothelioma) Hx Cardiac Disorders: No Hx Congestive Heart Failure: No Hx Hypertension: No Hx Hypercholesterolemia: No Hx Pacemaker: No HX Cerebrovascular Accident: No Hx Seizures: No Hx Dementia: No Hx Diabetes: No Hx Gastrointestinal Disorders: No Hx Liver Disease: No Hx Genitourinary Disorders: No Hx Sexually Transmitted Disorders: No Hx Renal Disease (ESRD): No Hx Thyroid Disease: No Hx Human Immunodeficiency Virus (HIV): No Hx Hepatitis C: No Hx Depression: No Hx Suicide Attempt: No Hx Bipolar Disorder: No Hx Schizophrenia: No - Patient Surgical History Past Surgical History: No Hx Neurologic Surgery: No Hx Cataract Extraction: No Hx Cardiac Surgery: No Hx Lung Surgery: No Hx Breast Surgery: No Hx Breast Biopsy: No Hx Abdominal Surgery: No Hx Appendectomy: No Hx Cholecystectomy: No Hx Genitourinary Surgery: No Hx Section: No Hx Orthopedic Surgery: No Hx Hysterectomy: No Anesthesia Reaction: No - PPD History Previous Implant?: Yes Documented Results: Negative w/proof Implanted On Prior [facility] Admission?: Yes Date: 09/23/15 Results: 0 mm PPD to be Administered?: No - Reproductive History Patient is a Female of Child Bearing Age (11 -55 yrs old): No - Smoking Cessation Smoking history: Current some day smoker Have you smoked in the past 12 months: No Aproximately how many cigarettes per day: 0 Cigars Per Day: 0 Hx Chewing Tobacco Use: No Initiated information on smoking cessation: Yes 'Breaking Loose' booklet given: 06/23/16 - Substance & Tx. History Hx Alcohol Use: Yes Hx Substance Use: No Substance Use Type: Alcohol Hx Substance Use Treatment: Yes ([facility] ) - Substances Abused Alcohol Route: Oral Frequency: Daily Amount used: 2 PINTS OF LIQUOR Age of first use: 16 Date of Last Use: 06/23/16 Family Disease History - Family Disease History Family Disease History: CA: Mother (), Brother (Colon CA), Other: Grandparent (ALCOHOLISM), Father (ALCOHOL,) Admission Physical Exam [facility] - Vital Signs Vital Signs: Last Vital Signs Temp Pulse Resp BP Pulse Ox 97.0 F L 90 20 114/66 06/23/16 06:29 06/23/16 06:29 06/23/16 06:29 06/23/16 06:29 - Physical General Appearance: Yes: Disheveled, Alcohol on Breath, Intoxicated, Obese, Tremorous, Irritable, Sweating, Anxious HEENTM: Yes: Hearing grossly Normal, Normocephalic, Normal Voice Respiratory: Yes: Chest Non-Tender, Lungs Clear, Normal Breath Sounds, No Respiratory Distress, No Accessory Muscle Use Neck: Yes: No masses,lesions,Nodules, Trachea in good position Breast: Yes: Breast Exam Deferred Cardiology: Yes: Regular Rhythm, Regular Rate, S1, S2 Abdominal: Yes: Normal Bowel Sounds, Non Tender, Soft Genitourinary: Yes: Frequency (REPORTED) Back: Yes: Normal Inspection Musculoskeletal: Yes: Back pain, Joint Stiffness, Muscle Pain Extremities: Yes: Tremors Neurological: Yes: Alert, Normal Response Integumentary: Yes: Dry, Warm Lymphatic: Yes: Within Normal Limits - Diagnostic (1) Alcohol dependence with uncomplicated withdrawal Current Visit: Yes Status: Chronic (2) HTN (hypertension) Current Visit: Yes Status: Chronic Qualifiers: Hypertension type: essential hypertension (3) Mesothelioma (pleural) Current Visit: Yes Status: Chronic (4) Morbid obesity Current Visit: Yes Status: Chronic Qualifiers: Obesity type: unspecified obesity type Qualified Code(s): E66.01 - Morbid (severe) obesity due to excess calories Cleared for Admission S - Detox or Rehab S Level of Care: Medically Managed Detox Regimen/Protocol: Librium BHS Breath Alcohol Content Breath Alcohol Content: 0.132 Vital Signs - Vital Signs Vital Signs Refused: No Temperature: 97.0 F Temperature Source: Oral Pulse Rate: 90 Respiratory Rate: 20 Blood Pressure: 114/66 BP Location: Left Arm Blood Pressure Position: Sitting - Height Height: 5 ft 10 in - Weight Weight: 262 lb Weight Measurement Method: Standing Scale Body Mass Index (BMI): 37.5 Urine Drug Screen - Test Device Lot Number: [id number] Expiration Date: 02/11/18 - Control Is Test Valid: Yes - Results Drug Screen Negative: No Urine Drug Screen Results: BZO-Benzodiazepines
[2016-06-23] MEDS ORDERED: LOPERAMIDE HCL 2 MG CAPSULE PO PRN (06:49)
[2016-06-23] MEDS ORDERED: hydrOXYzine PAMOATE 50 MG CAPSULE (FP) PO PRN (06:49)
[2016-06-23] MEDS ORDERED: MAGNESIUM CITRATE 300 ML BOTTLE PO PRN (06:49)
[2016-06-23] MEDS ORDERED: MAGNESIUM HYDROX 2400MG/30ML ORAL SUSPENSION 30 ML CUP PO PRN (06:49)
[2016-06-23] MEDS ORDERED: chlordiazePOXIDE HCL 25 MG CAPSULE PO ONE (06:49)
[2016-06-23] MEDS ORDERED: diphenhydrAMINE HCL 50 MG CAPSULE PO PRN (06:49)
[2016-06-23] MEDS ORDERED: P-EPHED 60MG/TRIPROLIDI 2.5MG TABLET PO PRN (06:49)
[2016-06-23] MEDS ORDERED: guaiFENesin/D-METHORPHAN HB 10 ML UNIT-DOSE CUPS PO PRN (06:49)
[2016-06-23] MEDS ORDERED: MENTHOL/PHENOL 1 EACH UD MM PRN (06:49)
[2016-06-23] MEDS ORDERED: MAG HYDROX/AL HYDROX/SIMETH 30 ML UNIT-DOSE CUP PO PRN (06:49)
[2016-06-23 06:58] VITALS: BMI 37.5
[2016-06-23] MEDS: chlordiazePOXIDE HCL 25 MG CAPSULE PO SCH ×3 (10:15→22:30)
[2016-06-23] MEDS: PRENATAL VITAMINS W/ FOLIC ACID TABLET (FP) PO SCH (10:15)
--- NOTE | 2016-06-23 10:30 | PN ---
[facility] Progress Note (SOAP) Subjective: PT. WAS ADMITTED EARLIER TODAY FOR DETOX Objective: 06/23/16 10:29 Vital Signs - 8 hr 06/23/16 06/23/16 06/23/16 07:03 07:34 10:04 Temperature 97.0 F L 97.0 F L 98.0 F Pulse Rate 90 90 94 H Respiratory 20 20 20 Rate Blood Pressure 114/66 114/66 169/107 Assessment: 06/23/16 10:29 WITHDRAWAL SX. Plan: CONTINUE DETOX
--- NOTE | 2016-06-23 12:15 | PN ---
[facility] Progress Note Note: bp 176/107,withdrawal symptom,clonidine 0.1mg po now,bp monitoring,continue detox
[2016-06-23] MEDS ORDERED: cloNIDine HCL 0.1 MG TABLET PO ONE (12:30)
[2016-06-23] MEDS: ACETAMINOPHEN 325 MG TABLET (FP) PO PRN (13:08)
[2016-06-23] MEDS: chlordiazePOXIDE HCL 25 MG CAPSULE PO PRN ×2 (13:08→20:16)
[2016-06-23 13:52] LABS: MCHC 32.3 g/dl (32.0-35.9); MEAN CELL VOLUME 96.1 fl (80-96); MEAN PLT VOLUME 7.6 fl (7.5-11.1); PLATELET COUNT 236 K/MM3 (134-434); RDW 18.1 % (11.9-15.9); WHITE BLOOD COUNT 4.8 K/mm3 (4.0-10.0)
[2016-06-23 13:58] LABS: ALBUMIN 3.5 g/dl (3.4-5.0); ANION GAP 10 (8-16); CALCIUM 8.8 mg/dL (8.5-10.1); CO2 33 mmol/L (21-32); GLUCOSE,RANDOM 68 mg/dL (74-106)
[2016-06-23 14:00] LABS: ALK PHOS 125 U/L (45-117); BILIRUBIN,TOTAL 0.7 mg/dL (0.2-1.0); CREATININE 0.7 mg/dL (0.7-1.3); SGOT/AST 79 U/L (15-37); SGPT/ALT 39 U/L (12-78); TOT PROT 6.9 g/dl (6.4-8.2)
--- NOTE | 2016-06-23 14:13 | CONSULT ---
[facility] Psychiatric Consult - Data Date of interview: 06/23/16 Admission source: [facility] Identifying data: Readmission to [facility] for this 61 y/o male seeking detox treatment on for alcohol dependence.Patient is single without children,homeless,unemployed and supported on SSD/SSI benefits. Substance Abuse History: - Smoking Cessation. Smoking history: Current some day smoker. Have you smoked in the past 12 months: No. Aproximately how many cigarettes per day: 0. Cigars Per Day: 0. Hx Chewing Tobacco Use: No. Initiated information on smoking cessation: Yes. 'Breaking Loose' booklet given : 06/23/16. - Substance & Tx. History. Hx Alcohol Use: Yes. Hx Substance Use : No. Substance Use Type: Alcohol. Hx Substance Use Treatment: Yes ([facility] ). - Substances Abused. Alcohol. Route: Oral. Frequency: Daily. Amount used : 2 PINTS OF LIQUOR. Age of first use: 16. Date of Last Use: 06/23/16. Confirmed by patient. Medical History: Significant for GERD,hypertension,morbid obesity,DVT's and lung cancer (mesothelioma). Psychiatric History: Patient denies. Physical/Sexual Abuse/Trauma History: Patient denies. Mental Status Exam - Mental Status Exam Alert and Oriented to: Time, Place, Person Cognitive Function: Grossly Intact Patient Appearance: Disheveled (obese) Mood: Nervous, Withdrawn Affect: Mood Congruent Patient Behavior: Fatigued, Uncooperative Speech Pattern: Clear Voice Loudness: Normal Thought Process: Goal Oriented Thought Disorder: Not Present Hallucinations: Denies Suicidal Ideation: Denies Homicidal Ideation: Denies Insight/Judgement: Poor Appetite: Good Muscle strength/Tone: Normal Gait/Station: Normal Psychiatric Findings - Problem List ([place] 1, 2,3) (1) Alcohol dependence with uncomplicated withdrawal Current Visit: Yes Status: Acute (2) HTN (hypertension) Current Visit: Yes Status: Chronic Qualifiers: Hypertension type: essential hypertension (3) Mesothelioma (pleural) Current Visit: Yes Status: Chronic (4) Morbid obesity Current Visit: Yes Status: Chronic Qualifiers: Obesity type: unspecified obesity type Qualified Code(s): E66.01 - Morbid (severe) obesity due to excess calories (5) Back pain of thoracolumbar region Current Visit: No Status: Acute (6) GERD (gastroesophageal reflux disease) Current Visit: Yes Status: Chronic Qualifiers: Esophagitis presence: without esophagitis Qualified Code(s): K21.9 - Gastro-esophageal reflux disease without esophagitis - Initial Treatment Plan Initial Treatment Plan: Psychoeducation.Detoxification.Observation.
[2016-06-23 16:39] LABS: URINE APPEARANCE CLEAR; URINE BILIRUBIN NEGATIVE (NEGATIVE); URINE BLOOD NEGATIVE (NEGATIVE); URINE COLOR YELLOW; URINE GLUCOSE (UA) NEGATIVE (NEGATIVE); URINE KETONE NEGATIVE (NEGATIVE); URINE NITRITE NEGATIVE (NEGATIVE); URINE PROTEIN NEGATIVE (NEGATIVE); URINE UROBILINOGEN NEGATIVE E.U./dl (0.2-1.0)
[2016-06-23 16:42] LABS: URINE LEUK ESTERASE 2+ (NEGATIVE)
[2016-06-23 16:47] LABS: URINE HYALINE CAST 1 /lpf; URINE MUCUS RARE; URINE RBC <1 /hpf (0-3); URINE WBC 7 /hpf (3-5)
[2016-06-23] MEDS: IBUPROFEN 400 MG TABLET (FP) PO PRN (20:16)
[2016-06-23] MEDS: cloNIDine HCL 0.1 MG TABLET PO PRN (22:30)
[2016-06-23] MEDS: THIAMINE HCL 100 MG TABLET (FP) PO SCH (22:31)
[2016-06-24] MEDS: chlordiazePOXIDE HCL 25 MG CAPSULE PO SCH ×4 (05:45→22:23)
[2016-06-24] MEDS: IBUPROFEN 400 MG TABLET (FP) PO PRN (05:48)
[2016-06-24] MEDS: cloNIDine HCL 0.1 MG TABLET PO PRN ×2 (06:53→19:16)
[2016-06-24] MEDS: PRENATAL VITAMINS W/ FOLIC ACID TABLET (FP) PO SCH (10:07)
--- NOTE | 2016-06-24 10:30 | PN ---
[facility] CIWA - CIWA Score Nausea/Vomitin-No Nausea/No Vomiting Muscle Tremors: 4-Moderate,w/Arms Extend Anxiety: 4-Mod. Anxious/Guarded Agitation: 4-Moderately Restless Paroxysmal Sweats: 1-Minimal Palms Moist Orientation: 0-Oriented Tacttile Disturbances: 3-Moderate Itch/Numb/Burn Auditory Disturbances: 0-None Visual Disturbances: 0-None Headache: 0-None Present CIWA-Ar Total Score: 16 S Progress Note (SOAP) Subjective: ANXIETY,TREMORS,SWEATS,FATIGUE. Objective: 06/24/16 10:28 Vital Signs Temperature 97.9 F 06/24/16 10:08 Pulse Rate 93 H 06/24/16 10:08 Respiratory Rate 20 06/24/16 10:08 Blood Pressure 117/79 06/24/16 10:08 O2 Sat by Pulse Oximetry (%) Laboratory Last Values WBC 4.8 K/mm3 (4.0-10.0) 06/23/16 10:00 RBC 3.88 M/mm3 (4.00-5.60) L 06/23/16 10:00 Hgb 12.0 GM/dL (11.7-16.9) 06/23/16 10:00 Hct 37.2 % (35.4-49) 06/23/16 10:00 MCV 96.1 fl (80-96) H 06/23/16 10:00 MCHC 32.3 g/dl (32.0-35.9) 06/23/16 10:00 RDW 18.1 % (11.9-15.9) H 06/23/16 10:00 Plt Count 236 K/MM3 (134-434) 06/23/16 10:00 MPV 7.6 fl (7.5-11.1) 06/23/16 10:00 Sodium 143 mmol/L (136-145) 06/23/16 10:00 Potassium 3.3 mmol/L (3.5-5.1) L 06/23/16 10:00 Chloride 100 mmol/L (98-107) 06/23/16 10:00 Carbon Dioxide 33 mmol/L (21-32) H 06/23/16 10:00 Anion Gap 10 (8-16) 06/23/16 10:00 BUN 6 mg/dL (7-18) L D 06/23/16 10:00 Creatinine 0.7 mg/dL (0.7-1.3) 06/23/16 10:00 Creat Clearance w eGFR > 60 (>60) 06/23/16 10:00 Random Glucose 68 mg/dL (74-106) L 06/23/16 10:00 Calcium 8.8 mg/dL (8.5-10.1) 06/23/16 10:00 Total Bilirubin 0.7 mg/dL (0.2-1.0) D 06/23/16 10:00 AST 79 U/L (15-37) H 06/23/16 10:00 ALT 39 U/L (12-78) 06/23/16 10:00 Alkaline Phosphatase 125 U/L (45-117) H 06/23/16 10:00 Total Protein 6.9 g/dl (6.4-8.2) 06/23/16 10:00 Albumin 3.5 g/dl (3.4-5.0) 06/23/16 10:00 Urine Color Yellow 06/23/16 15:00 Urine Appearance Clear 06/23/16 15:00 Urine pH 7.0 (5.0-8.0) D 06/23/16 15:00 Ur Specific [place] 1.010 (1.001-1.035) 06/23/16 15:00 Urine Protein Negative (NEGATIVE) 06/23/16 15:00 Urine Glucose (UA) Negative (NEGATIVE) 06/23/16 15:00 Urine Ketones Negative (NEGATIVE) 06/23/16 15:00 Urine Blood Negative (NEGATIVE) 06/23/16 15:00 Urine Nitrite Negative (NEGATIVE) 06/23/16 15:00 Urine Bilirubin Negative (NEGATIVE) 06/23/16 15:00 Urine Urobilinogen Negative E.U./dl (0.2-1.0) 06/23/16 15:00 Ur Leukocyte Esterase 2+ (NEGATIVE) H 06/23/16 15:00 Urine RBC <1 /hpf (0-3) 06/23/16 15:00 Urine WBC 7 /hpf (3-5) 06/23/16 15:00 Ur Epithelial Cells Rare /hpf (FEW) 06/23/16 15:00 Hyaline Casts 1 /lpf 06/23/16 15:00 Urine Mucus Rare 06/23/16 15:00 RPR Titer Nonreactive (NONREACTIVE) 06/23/16 10:00 ABNORMAL LABS NOTED. Assessment: 06/24/16 10:29 WITHDRAWAL SX Plan: CONTINUE DETOX REPEAT UA TODAY. REPEAT CMP ON 06/26/16
[2016-06-24] MEDS ORDERED: POTASSIUM CHLORIDE TABS 20 MEQ TABLET.ER (FP) PO ONE (10:31)
[2016-06-24] MEDS: chlordiazePOXIDE HCL 25 MG CAPSULE PO PRN (19:17)
--- NOTE | 2016-06-24 19:32 | PN ---
[facility] Progress Note Note: RECEIVED NURSE CALL BP 179/100 RECOMMEND OFFER PRN CLONIDINE REPEAT BP IN ONE HOUR AROUND 9PM CONTINUE DETOX
[2016-06-24] MEDS: POTASSIUM CHLORIDE TABS 20 MEQ TABLET.ER (FP) PO SCH (22:23)
[2016-06-24] MEDS: THIAMINE HCL 100 MG TABLET (FP) PO SCH (22:24)
[2016-06-25] MEDS: chlordiazePOXIDE HCL 25 MG CAPSULE PO SCH (05:50)
[2016-06-25] MEDS: cloNIDine HCL 0.1 MG TABLET PO PRN (06:40)
--- NOTE | 2016-06-25 09:06 | PN ---
[facility] CIWA - CIWA Score Nausea/Vomitin-No Nausea/No Vomiting Muscle Tremors: 4-Moderate,w/Arms Extend Anxiety: 5 Agitation: 4-Moderately Restless Paroxysmal Sweats: 1-Minimal Palms Moist Orientation: 0-Oriented Tacttile Disturbances: 3-Moderate Itch/Numb/Burn Auditory Disturbances: 0-None Visual Disturbances: 0-None Headache: 0-None Present CIWA-Ar Total Score: 17 [facility] Progress Note (SOAP) Subjective: ANXIETY,TREMORS,SWEATS,FATIGUE. Objective: 06/25/16 09:05 Vital Signs Temperature 97.6 F 06/25/16 06:28 Pulse Rate 91 H 06/25/16 06:28 Respiratory Rate 20 06/25/16 06:28 Blood Pressure 144/95 06/25/16 08:05 O2 Sat by Pulse Oximetry (%) Laboratory Last Values WBC 4.8 K/mm3 (4.0-10.0) 06/23/16 10:00 RBC 3.88 M/mm3 (4.00-5.60) L 06/23/16 10:00 Hgb 12.0 GM/dL (11.7-16.9) 06/23/16 10:00 Hct 37.2 % (35.4-49) 06/23/16 10:00 MCV 96.1 fl (80-96) H 06/23/16 10:00 MCHC 32.3 g/dl (32.0-35.9) 06/23/16 10:00 RDW 18.1 % (11.9-15.9) H 06/23/16 10:00 Plt Count 236 K/MM3 (134-434) 06/23/16 10:00 MPV 7.6 fl (7.5-11.1) 06/23/16 10:00 Sodium 143 mmol/L (136-145) 06/23/16 10:00 Potassium 3.3 mmol/L (3.5-5.1) L 06/23/16 10:00 Chloride 100 mmol/L (98-107) 06/23/16 10:00 Carbon Dioxide 33 mmol/L (21-32) H 06/23/16 10:00 Anion Gap 10 (8-16) 06/23/16 10:00 BUN 6 mg/dL (7-18) L D 06/23/16 10:00 Creatinine 0.7 mg/dL (0.7-1.3) 06/23/16 10:00 Creat Clearance w eGFR > 60 (>60) 06/23/16 10:00 Random Glucose 68 mg/dL (74-106) L 06/23/16 10:00 Calcium 8.8 mg/dL (8.5-10.1) 06/23/16 10:00 Total Bilirubin 0.7 mg/dL (0.2-1.0) D 06/23/16 10:00 AST 79 U/L (15-37) H 06/23/16 10:00 ALT 39 U/L (12-78) 06/23/16 10:00 Alkaline Phosphatase 125 U/L (45-117) H 06/23/16 10:00 Total Protein 6.9 g/dl (6.4-8.2) 06/23/16 10:00 Albumin 3.5 g/dl (3.4-5.0) 06/23/16 10:00 Urine Color Yellow 06/23/16 15:00 Urine Appearance Clear 06/23/16 15:00 Urine pH 7.0 (5.0-8.0) D 06/23/16 15:00 Ur Specific [place] 1.010 (1.001-1.035) 06/23/16 15:00 Urine Protein Negative (NEGATIVE) 06/23/16 15:00 Urine Glucose (UA) Negative (NEGATIVE) 06/23/16 15:00 Urine Ketones Negative (NEGATIVE) 06/23/16 15:00 Urine Blood Negative (NEGATIVE) 06/23/16 15:00 Urine Nitrite Negative (NEGATIVE) 06/23/16 15:00 Urine Bilirubin Negative (NEGATIVE) 06/23/16 15:00 Urine Urobilinogen Negative E.U./dl (0.2-1.0) 06/23/16 15:00 Ur Leukocyte Esterase 2+ (NEGATIVE) H 06/23/16 15:00 Urine RBC <1 /hpf (0-3) 06/23/16 15:00 Urine WBC 7 /hpf (3-5) 06/23/16 15:00 Ur Epithelial Cells Rare /hpf (FEW) 06/23/16 15:00 Hyaline Casts 1 /lpf 06/23/16 15:00 Urine Mucus Rare 06/23/16 15:00 RPR Titer Nonreactive (NONREACTIVE) 06/23/16 10:00 REPEAT UA PENDING LAB TO BE REPEATED IN AM ORDERED Assessment: 06/25/16 09:06 WITHDRAWAL SX Plan: CONTINUE DETOX
[2016-06-25] MEDS ORDERED: chlordiazePOXIDE HCL 25 MG CAPSULE PO ONE ×2 (09:29→14:00)
[2016-06-25] MEDS: IBUPROFEN 400 MG TABLET (FP) PO PRN ×2 (10:09→18:28)
[2016-06-25] MEDS: POTASSIUM CHLORIDE TABS 20 MEQ TABLET.ER (FP) PO SCH ×2 (10:09→22:23)
[2016-06-25] MEDS: PRENATAL VITAMINS W/ FOLIC ACID TABLET (FP) PO SCH (10:09)
[2016-06-25] MEDS: chlordiazePOXIDE 5 MG CAPSULE PO SCH ×3 (12:10→22:18)
[2016-06-25 16:38] LABS: PH,URINE 7.5 (5.0-8.0); URINE APPEARANCE CLEAR; URINE BILIRUBIN NEGATIVE (NEGATIVE); URINE BLOOD NEGATIVE (NEGATIVE); URINE COLOR LT. YELLOW; URINE GLUCOSE (UA) NEGATIVE (NEGATIVE); URINE KETONE NEGATIVE (NEGATIVE); URINE NITRITE NEGATIVE (NEGATIVE); URINE PROTEIN NEGATIVE (NEGATIVE); URINE UROBILINOGEN 0.2 E.U/dl E.U./dl (0.2-1.0)
[2016-06-25 16:40] LABS: URINE LEUK ESTERASE 1+ (NEGATIVE)
[2016-06-25 16:52] LABS: URINE MUCUS RARE; URINE RBC 1 /hpf (0-3); URINE WBC 2 /hpf (3-5)
[2016-06-25] MEDS: THIAMINE HCL 100 MG TABLET (FP) PO SCH (22:17)
[2016-06-25] MEDS: ACETAMINOPHEN 325 MG TABLET (FP) PO PRN (22:20)
[2016-06-26] MEDS: chlordiazePOXIDE 5 MG CAPSULE PO SCH (05:41)
[2016-06-26] MEDS: cloNIDine HCL 0.1 MG TABLET PO PRN ×2 (05:42→10:20)
[2016-06-26] MEDS: CYCLOBENZAPRINE HCL 10 MG TABLET (FP) PO PRN ×2 (05:42→17:55)
[2016-06-26] MEDS ORDERED: LISINOPRIL 10 MG TABLET (FP) PO ONE (09:41)
--- NOTE | 2016-06-26 09:58 | PN ---
[facility] Progress Note (SOAP) Subjective: ANXIETY,TREMORS,SWEATS.UNCONTROLLED BP. PT HAD BEEN ON LISINOPRIL IN THE PAST. Objective: 06/26/16 09:57 Vital Signs Temperature 97.9 F 06/26/16 06:38 Pulse Rate 69 06/26/16 07:37 Respiratory Rate 16 06/26/16 06:38 Blood Pressure 142/82 06/26/16 07:37 O2 Sat by Pulse Oximetry (%) Assessment: 06/26/16 09:57 WITHDRAWAL SX HX: HYPERTENSION Plan: CONTINUE DETOX RESTART LISINOPRIL 10 MG PO BID
[2016-06-26] MEDS: LISINOPRIL 10 MG TABLET (FP) PO SCH ×2 (10:20→21:55)
[2016-06-26] MEDS: POTASSIUM CHLORIDE TABS 20 MEQ TABLET.ER (FP) PO SCH ×2 (10:20→21:57)
[2016-06-26] MEDS: chlordiazePOXIDE HCL 10 MG CAPSULE PO SCH ×3 (10:20→22:51)
[2016-06-26] MEDS: PRENATAL VITAMINS W/ FOLIC ACID TABLET (FP) PO SCH (10:20)
[2016-06-26 10:22] LABS: INR 1.09 (0.82-1.09)
[2016-06-26 10:24] LABS: CALCIUM 8.6 mg/dL (8.5-10.1); SGOT/AST 33 U/L (15-37); SGPT/ALT 27 U/L (12-78)
[2016-06-26 10:27] LABS: ALK PHOS 105 U/L (45-117); ANION GAP 9 (8-16); BILIRUBIN,TOTAL 0.5 mg/dL (0.2-1.0); CO2 29 mmol/L (21-32); CREATININE 0.5 mg/dL (0.7-1.3); GLUCOSE,RANDOM 84 mg/dL (74-106); TOT PROT 5.8 g/dl (6.4-8.2)
[2016-06-26] MEDS: LIDOCAINE 5% TOPICAL PATCH TP SCH (11:49)
[2016-06-26] MEDS: IBUPROFEN 400 MG TABLET (FP) PO PRN (17:55)
[2016-06-26] MEDS: THIAMINE HCL 100 MG TABLET (FP) PO SCH (21:53)
[2016-06-27] MEDS: chlordiazePOXIDE HCL 10 MG CAPSULE PO SCH (05:27)
[2016-06-27] MEDS: CYCLOBENZAPRINE HCL 10 MG TABLET (FP) PO PRN (05:28)
[2016-06-27] MEDS: cloNIDine HCL 0.1 MG TABLET PO PRN (05:28)
--- NOTE | 2016-06-27 09:17 | DS ---
[facility] Detox Discharge Summary Admission Date: 06/23/16 Discharge Date: 06/27/16 - History Present History: Alcohol Dependence Additional Comments: PT WAS INSTRUCTED TO FOLLOW UP WITH HIS PCP DR COLEY ON [facility] FOR MEDICAL MANAGEMENT. PT DECLINED HIS BP MED THIS MORNING, HOWEVER, RX SENT INTO HIS PHARMACY-[facility]. INSTRUCTED TO TAKE DIRECTED ON RX. [facility]: Pertinent Past History: HTN GERD MESOTHELIOMA(PLEURAL) CHRONIC BACK PAIN HYPOKALEMIA MORBID OBESITY HX HEAD TRUAMA - Physical Exam Results Vital Signs: Vital Signs Temperature 97.3 F L 06/27/16 06:31 Pulse Rate 80 06/27/16 06:31 Respiratory Rate 18 06/27/16 06:31 Blood Pressure 171/106 06/27/16 06:31 O2 Sat by Pulse Oximetry (%) Pertinent Admission Physical Exam Findings: WITHDRAWAL SX Laboratory Last Values WBC 4.8 K/mm3 (4.0-10.0) 06/23/16 10:00 RBC 3.88 M/mm3 (4.00-5.60) L 06/23/16 10:00 Hgb 12.0 GM/dL (11.7-16.9) 06/23/16 10:00 Hct 37.2 % (35.4-49) 06/23/16 10:00 MCV 96.1 fl (80-96) H 06/23/16 10:00 MCHC 32.3 g/dl (32.0-35.9) 06/23/16 10:00 RDW 18.1 % (11.9-15.9) H 06/23/16 10:00 Plt Count 236 K/MM3 (134-434) 06/23/16 10:00 MPV 7.6 fl (7.5-11.1) 06/23/16 10:00 INR 1.09 (0.82-1.09) 06/26/16 07:00 Sodium 141 mmol/L (136-145) 06/26/16 06:30 Potassium 3.2 mmol/L (3.5-5.1) L 06/26/16 06:30 Chloride 103 mmol/L (98-107) 06/26/16 06:30 Carbon Dioxide 29 mmol/L (21-32) 06/26/16 06:30 Anion Gap 9 (8-16) 06/26/16 06:30 BUN 10 mg/dL (7-18) D 06/26/16 06:30 Creatinine 0.5 mg/dL (0.7-1.3) L D 06/26/16 06:30 Creat Clearance w eGFR > 60 (>60) 06/26/16 06:30 Random Glucose 84 mg/dL (74-106) D 06/26/16 06:30 Calcium 8.6 mg/dL (8.5-10.1) 06/26/16 06:30 Total Bilirubin 0.5 mg/dL (0.2-1.0) D 06/26/16 06:30 AST 33 U/L (15-37) D 06/26/16 06:30 ALT 27 U/L (12-78) D 06/26/16 06:30 Alkaline Phosphatase 105 U/L (45-117) 06/26/16 06:30 Total Protein 5.8 g/dl (6.4-8.2) L 06/26/16 06:30 Albumin 3.0 g/dl (3.4-5.0) L 06/26/16 06:30 Urine Color Lt. yellow 06/25/16 14:00 Urine Appearance Clear 06/25/16 14:00 Urine pH 7.5 (5.0-8.0) 06/25/16 14:00 Ur Specific [place] 1.020 (1.001-1.035) 06/25/16 14:00 Urine Protein Negative (NEGATIVE) 06/25/16 14:00 Urine Glucose (UA) Negative (NEGATIVE) 06/25/16 14:00 Urine Ketones Negative (NEGATIVE) 06/25/16 14:00 Urine Blood Negative (NEGATIVE) 06/25/16 14:00 Urine Nitrite Negative (NEGATIVE) 06/25/16 14:00 Urine Bilirubin Negative (NEGATIVE) 06/25/16 14:00 Urine Urobilinogen 0.2 e.u/dl E.U./dl (0.2-1.0) 06/25/16 14:00 Ur Leukocyte Esterase 1+ (NEGATIVE) H 06/25/16 14:00 Urine RBC 1 /hpf (0-3) 06/25/16 14:00 Urine WBC 2 /hpf (3-5) 06/25/16 14:00 Ur Epithelial Cells Rare /hpf (FEW) 06/23/16 15:00 Hyaline Casts 1 /lpf 06/23/16 15:00 Urine Mucus Rare 06/25/16 14:00 RPR Titer Nonreactive (NONREACTIVE) 06/23/16 10:00 - Treatment Hospital Course: Detox Protocol Followed, Detoxed Safely, Responded well, Discharged Condition Good Patient has Accepted a Rehab Referral to: REFUSED TO GO TO [facility] WHEN OFFERED. - Medication Discharge Medications: Ambulatory Orders Lisinopril [Prinivil] 10 mg PO BID #60 tablet 06/27/16 Potassium Chloride [K-Dur -] 20 meq PO DAILY #3 tablet.er 06/27/16 - Diagnosis (1) Alcohol dependence with uncomplicated withdrawal Current Visit: Yes Status: Acute (2) GERD (gastroesophageal reflux disease) Current Visit: Yes Status: Chronic Qualifiers: Esophagitis presence: without esophagitis Qualified Code(s): K21.9 - Gastro-esophageal reflux disease without esophagitis (3) HTN (hypertension) Current Visit: Yes Status: Chronic Qualifiers: Hypertension type: essential hypertension (4) Mesothelioma (pleural) Current Visit: Yes Status: Chronic (5) Morbid obesity Current Visit: Yes Status: Chronic Qualifiers: Obesity type: unspecified obesity type Qualified Code(s): E66.01 - Morbid (severe) obesity due to excess calories (6) Back pain Current Visit: Yes Status: Chronic Qualifiers: Back pain location: thoracic back pain Chronicity: unspecified Back pain laterality: right Qualified Code(s): M54.6 - Pain in thoracic spine (7) Hypokalemia Current Visit: Yes Status: Acute - AMA Did Patient Leave Against Medical Advice: No
[2016-06-27 09:47] VITALS: BP 140/95; PULSE 98; TEMP 98
[2016-06-27] MEDS: POTASSIUM CHLORIDE TABS 20 MEQ TABLET.ER (FP) PO SCH (10:10)
[2016-06-27] MEDS: LIDOCAINE 5% TOPICAL PATCH TP SCH (10:10)
[2016-06-27] MEDS: PRENATAL VITAMINS W/ FOLIC ACID TABLET (FP) PO SCH (10:10)
[2016-06-27] MEDS: LISINOPRIL 10 MG TABLET (FP) PO SCH (10:11)
== END 2016-06-27 11:05 | disposition home or self-care (01) | DRG 775 ==
LOC: YASAS 00:43 → Y3N 00:47
PROVIDERS: ADMIT Internal Medicine; ATTEND Internal Medicine
PROC: HZ2ZZZZ Detoxification Services for Substance Abuse Treatment (ICD-10-PCS; principal; 2016-06-23)
DX: F10.230 Alcohol dependence with withdrawal, uncomplicated (principal); I10 Essential (primary) hypertension; K21.9 Gastro-esophageal reflux disease without esophagitis; E66.01 Morbid (severe) obesity due to excess calories; Z68.37 Body mass index [BMI] 37.0-37.9, adult; M54.6 Pain in thoracic spine; E87.6 Hypokalemia; C45.7 Mesothelioma of other sites
CPT/HCPCS: 36415; 80053; 81003; 81015; 85027; 85610; 86593

== ENCOUNTER 2016-07-10 01:02 | Emergency (ER) | payer OTHER ==
[2016-07-10 01:31] VITALS: BP 135/96; PULSE 79; TEMP 98.5; BMI 30.8
--- NOTE | 2016-07-10 05:36 | PDOC ---
History of Present Illness - General Chief Complaint: Cold Symptoms Stated Complaint: CHEST PAIN Time Seen by Provider: 07/10/16 01:30 History Source: Patient Exam Limitations: No Limitations - History of Present Illness Initial Comments: 07/10/16 03:35 Patient lying in stretcher sleeping. Unable to obtain HPI. No acute distress noted. Past History - Past Medical History Allergies/Adverse Reactions: Allergies Allergy/AdvReac Type Severity Reaction Status Date / Time No Known Allergies Allergy Verified 07/10/16 01:52 Home Medications: Ambulatory Orders Lisinopril [Prinivil] 10 mg PO BID #60 tablet 06/27/16 Potassium Chloride [K-Dur -] 20 meq PO DAILY #3 tablet.er 06/27/16 Anemia: No Asthma: No Cancer: Yes (mesothelioma) Cardiac Disorders: No CVA: No COPD: No CHF: No Dementia: No Diabetes: No GI Disorders: No Disorders: No HTN: No Hypercholesterolemia: No Kidney Stones: No Liver Disease: No Psychiatric Problems: Yes (alcoholism) Suicide Attempt (Hx): No Seizures: No Thyroid Disease: No - Surgical History Abdominal Surgery: No Appendectomy: No Cardiac Surgery: No Cholecystectomy: No Lung Surgery: No Neurologic Surgery: No Orthopedic Surgery: No - Family Disease History Family Disease History: CA: Mother - Reproductive History Testicular Surgery: No - Immunization History TDAP Vaccination: Yes Immunization Up to Date: Yes - Psycho/Social/Smoking Cessation Hx Anxiety: No Suicidal Ideation: No Smoking Status: No Smoking History: Former smoker Have you smoked in the past 12 months: No Number of Cigarettes Smoked Daily: 0 Cigars Per Day: 0 Information on smoking cessation initiated: No 'Breaking Loose' booklet given: 06/23/16 Hx Alcohol Use: Yes (Daily) Drug/Substance Use Hx: No Substance Use Type: Alcohol Hx Substance Use Treatment: Yes (DETOX ) *Physical Exam - Vital Signs Last Vital Signs Temp Pulse Resp BP Pulse Ox 98.5 F 79 20 135/96 96 07/10/16 01:25 07/10/16 01:25 07/10/16 01:25 07/10/16 01:25 07/10/16 01:25 - Physical Exam General Appearance: Yes: Disheveled. No: Apparent Distress, Mild Distress, Moderate Distress, Severe Distress Neck: positive: Trachea midline, Supple. negative: Stridor Respiratory/Chest: positive: Normal Breath Sounds. negative: Respiratory Distress, Accessory Muscle Use, Labored Respiration, Rapid RR Gastrointestinal/Abdominal: positive: Distended. 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 No acute distress noted. *DC/Admit/Observation/Transfer Diagnosis at time of Disposition: Homeless - Discharge Dispostion Disposition: HOME Condition at time of disposition: Improved Admit: No - Patient Instructions Printed Discharge Instructions: DI for Alcohol Abuse Additional Instructions: Follow up with your primary care provider as needed. Print Language: SLOVENIAN
== END 2016-07-10 06:59 | disposition home or self-care (01) ==
LOC: JER 01:02 → SUPCPDRO 01:02 → JER 06:59
DX: R07.89 Other chest pain (principal); C45.9 Mesothelioma, unspecified; Z59.0 Homelessness
CPT/HCPCS: 99281-25

== ENCOUNTER 2016-07-11 14:48 | Emergency (ER) | payer OTHER ==
[2016-07-11 15:08] VITALS: BP 99/66; PULSE 94; TEMP 98; BMI 33.7
--- NOTE | 2016-07-11 17:41 | PDOC ---
History of Present Illness - General History Source: Patient Exam Limitations: No Limitations - History of Present Illness Initial Comments: 07/11/16 19:02 61y M hx of etoh abuse, mesothelioma presents with intoxication. pt also compalining of lower back pain, no recent aflls/injuries, numbness/tingling weakness. pt localizes pain to the R lower back. no fever/chills, urinary or bowel incontinence. <Richard Ulrich - Last Filed: 07/11/16 19:02> <Lorri Wise - Last Filed: 07/12/16 21:33> - General Chief Complaint: Back Pain Stated Complaint: BACK PAIN Time Seen by Provider: 07/11/16 16:04 Past History - Past Medical History Anemia: No Asthma: No Cancer: Yes (mesothelioma) Cardiac Disorders: No CVA: No COPD: No CHF: No Dementia: No Diabetes: No GI Disorders: No Disorders: No HTN: No Hypercholesterolemia: No Kidney Stones: No Liver Disease: No Psychiatric Problems: Yes (alcoholism) Suicide Attempt (Hx): No Seizures: No Thyroid Disease: No - Surgical History Abdominal Surgery: No Appendectomy: No Cardiac Surgery: No Cholecystectomy: No Lung Surgery: No Neurologic Surgery: No Orthopedic Surgery: No - Family Disease History Family Disease History: CA: Mother - Reproductive History Testicular Surgery: No - Immunization History TDAP Vaccination: Yes Immunization Up to Date: Yes - Psycho/Social/Smoking Cessation Hx Anxiety: No Suicidal Ideation: No Smoking Status: No Smoking History: Never smoked Have you smoked in the past 12 months: No Number of Cigarettes Smoked Daily: 0 Cigars Per Day: 0 Information on smoking cessation initiated: No 'Breaking Loose' booklet given: 06/23/16 Hx Alcohol Use: No Drug/Substance Use Hx: No Substance Use Type: Alcohol Hx Substance Use Treatment: Yes (DETOX ) <Richard Ulrich - Last Filed: 07/11/16 19:02> <Lorri Wise - Last Filed: 07/12/16 21:33> - Past Medical History Allergies/Adverse Reactions: Allergies Allergy/AdvReac Type Severity Reaction Status Date / Time No Known Allergies Allergy Verified 07/11/16 15:03 Home Medications: Ambulatory Orders NK [No Known Home Medication] 07/12/16 Review of Systems - Review of Systems Able to Perform ROS?: Yes Comments:: 07/11/16 19:03 Constitutional - no reported Fever, Chills, weakness, Musculskelatal - + back pain no reported, joint swelling : no reported urinary incontience neurological: no reported headache, numbness, focal weakness, tingling, ataxia, weakness hematologic: no reported anemia, easy bruising, easy bleeding <Richard Ulrich - Last Filed: 07/11/16 19:02> *Physical Exam - Vital Signs Last Vital Signs Temp Pulse Resp BP Pulse Ox 98.0 F 94 H 18 99/66 95 07/11/16 15:03 07/11/16 15:03 07/11/16 15:03 07/11/16 15:03 07/11/16 15:03 - Physical Exam Comments: 07/11/16 19:04 GENERAL: The patient is awake, alert, and fully oriented, Nontoxic - in no acute distress. HEAD: Normocephalic, atraumatic. EYES: extraocular movements intact, sclera anicteric, conjunctiva clear. NECK: Normal range of motion, notnender LUNGS: Breath sounds equal, HEART: Regular rate and rhythm ABDOMEN: Soft, nontender, EXTREMITIES: Normal range of motion, MSK: no focal tenderness on the midline, no ecchymosis, erythema, stepoffs or other signs of trauma, mild tenderness to R lower back NEUROLOGICAL: No facial assymetry, Normal speech, moving all 4 extremiteis spontnaenously <Richard Ulrich - Last Filed: 07/11/16 19:02> - Vital Signs Last Vital Signs Temp Pulse Resp BP Pulse Ox 98.0 F 94 H 18 99/66 95 07/11/16 15:03 07/11/16 15:03 07/11/16 15:03 07/11/16 15:03 07/11/16 15:03 <Lorri Wise - Last Filed: 07/12/16 21:33> ED Treatment Course - Medications Given in the ED: ED Medications Discontinued Medications Generic Name Dose Route Start Last Admin Trade Name Freq PRN Reason Stop Dose Admin Acetaminophen 650 mg 07/11/16 18:43 07/11/16 19:06 Tylenol - PO 07/11/16 18:44 650 mg ONCE ONE Administration <Lorri Wise - Last Filed: 07/12/16 21:33> Medical Decision Making - Medical Decision Making 07/11/16 19:05 r lower back pain atraumatic no neuro complaints will give acetaminophen will observe for clinical sobriety will sign out to dr. wise to reasess the patient <Richard Ulrich - Last Filed: 07/11/16 19:02> - Medical Decision Making 07/12/16 21:32 Pt woke up and is ambulating. No back pain. Pt complains of a green cough. I gave him a dose of zithromax 500mg. He is an alcoholic who comes in daily, we can treat him with z-estella tripak in the ER. I will give him the second dose tomorrow when he shows up and day after he will get the 3rd and final dose from me. <Lorri Wise - Last Filed: 07/12/16 21:33> *DC/Admit/Observation/Transfer <Richard Ulrich - Last Filed: 07/11/16 19:02> - Discharge Dispostion Admit: No <Lorri Wise - Last Filed: 07/12/16 21:33> Diagnosis at time of Disposition: Sore throat, Muscle pain - Discharge Dispostion Disposition: HOME Condition at time of disposition: Stable - Patient Instructions Printed Discharge Instructions: Sore Throat
[2016-07-11] MEDS ORDERED: ACETAMINOPHEN 325 MG TABLET (FP) PO ONE (18:43)
[2016-07-12] MEDS ORDERED: AZITHROMYCIN 250 MG TABLET (FP) PO ONE (05:48)
== END 2016-07-12 06:58 | disposition home or self-care (01) ==
LOC: JER 14:48
DX: J02.9 Acute pharyngitis, unspecified (principal); M79.1 Myalgia; C45.9 Mesothelioma, unspecified
CPT/HCPCS: 99282-25

== ENCOUNTER 2016-07-12 12:32 | Emergency (ER) | payer OTHER ==
[2016-07-12 12:39] VITALS: BMI 32.3
--- NOTE | 2016-07-12 13:29 | PDOC ---
History of Present Illness - General History Source: Patient, Old Records Exam Limitations: No Limitations <WilliamIsaiasVerona - Last Filed: 07/12/16 14:03> - General History Source: Patient, Old Records Exam Limitations: No Limitations - History of Present Illness Initial Comments: 07/12/16 14:15 The patient is a 61 year old male, with a significant past medical history of mesothelioma, who presents to the emergency department with alcohol intoxication. The patient is well known to the ED throughout the years for similar complaints. This is the patient's 10th visit to the ED this month. The patient notes that he drinks 1 pint of vodka daily. The patient denies chest pain, shortness of breath, headache and dizziness. Denies fever, chills, nausea, vomit, diarrhea and constipation. Denies dysuria, frequency, urgency and hematuria. Allergies: None Past surgical history: None reported Social history: Daily alcohol use (1 pint of vodka). No tobacco or drug use reported <Altaf William - Last Filed: 07/12/16 14:24> - General Chief Complaint: Back Pain Stated Complaint: BACK PAIN/INTOX Time Seen by Provider: 07/12/16 13:08 Past History - Past Medical History Anemia: No Asthma: No Cancer: Yes (mesothelioma) Cardiac Disorders: No CVA: No COPD: No CHF: No Dementia: No Diabetes: No GI Disorders: No Disorders: No HTN: No Hypercholesterolemia: No Kidney Stones: No Liver Disease: No Psychiatric Problems: Yes (alcoholism) Suicide Attempt (Hx): No Seizures: No Thyroid Disease: No - Surgical History Abdominal Surgery: No Appendectomy: No Cardiac Surgery: No Cholecystectomy: No Lung Surgery: No Neurologic Surgery: No Orthopedic Surgery: No - Family Disease History Family Disease History: CA: Mother - Reproductive History Testicular Surgery: No - Immunization History TDAP Vaccination: Yes Immunization Up to Date: Yes - Psycho/Social/Smoking Cessation Hx Anxiety: No Suicidal Ideation: No Smoking Status: No Smoking History: Never smoked Have you smoked in the past 12 months: No Number of Cigarettes Smoked Daily: 0 Cigars Per Day: 0 'Breaking Loose' booklet given: 06/23/16 Hx Alcohol Use: Yes (VODKA) Drug/Substance Use Hx: No Substance Use Type: Alcohol Hx Substance Use Treatment: Yes (DETOX ) <Verona Thomas - Last Filed: 07/12/16 14:03> <Altaf William - Last Filed: 07/12/16 14:24> - Past Medical History Allergies/Adverse Reactions: Allergies Allergy/AdvReac Type Severity Reaction Status Date / Time No Known Allergies Allergy Verified 07/12/16 12:39 Home Medications: Ambulatory Orders Lisinopril [Prinivil] 10 mg PO BID #60 tablet 06/27/16 Potassium Chloride [K-Dur -] 20 meq PO DAILY #3 tablet.er 06/27/16 Review of Systems - Review of Systems Able to Perform ROS?: Yes Comments:: 07/12/16 14:15 GENERAL/CONSTITUTIONAL: No fever or chills. No weakness. HEAD, EYES, EARS, NOSE AND THROAT: No change in vision. No ear pain or discharge. No sore throat. CARDIOVASCULAR: No chest pain or shortness of breath RESPIRATORY: No cough, wheezing, or hemoptysis. GASTROINTESTINAL: No nausea, vomiting, diarrhea or constipation. GENITOURINARY: No dysuria, frequency, or change in urination. MUSCULOSKELETAL: No joint or muscle swelling or pain. No neck or back pain. SKIN: No rash NEUROLOGIC: No headache, vertigo, loss of consciousness, or change in strength/ sensation. ENDOCRINE: No increased thirst. No abnormal weight change HEMATOLOGIC/LYMPHATIC: No anemia, easy bleeding, or history of blood clots. ALLERGIC/IMMUNOLOGIC: No hives or skin allergy. <Altaf William - Last Filed: 07/12/16 14:24> *Physical Exam - Vital Signs Last Vital Signs Temp Pulse Resp BP Pulse Ox 97.5 F L 81 20 122/74 96 07/12/16 12:33 07/12/16 12:33 07/12/16 12:33 07/12/16 12:33 07/12/16 12:33 <Verona Thomas - Last Filed: 07/12/16 14:03> - Vital Signs Last Vital Signs Temp Pulse Resp BP Pulse Ox 97.5 F L 81 20 122/74 96 07/12/16 12:33 07/12/16 12:33 07/12/16 12:33 07/12/16 12:33 07/12/16 12:33 - Physical Exam Comments: 07/12/16 14:15 GENERAL: Awake, alert, and fully oriented, in no acute distress. Poor Hygiene. HEAD: No signs of trauma, normocephalic, atraumatic EYES: PERRLA, EOMI, sclera anicteric, conjunctiva clear ENT: Auricles normal inspection, hearing grossly normal, nares patent, oropharynx clear without exudates. Moist mucosa NECK: Normal ROM, supple, no lymphadenopathy, JVD, or masses LUNGS: No distress, speaks full sentences, clear to auscultation bilaterally HEART: Regular rate and rhythm, normal S1 and S2, no murmurs, rubs or gallops, peripheral pulses normal and equal bilaterally. ABDOMEN: Soft, nontender, normoactive bowel sounds. No guarding, no rebound. No masses EXTREMITIES: Normal inspection, Normal range of motion, no edema. No clubbing or cyanosis. NEUROLOGICAL: Cranial nerves II through XII grossly intact. Normal speech, normal gait, no focal sensorimotor deficits SKIN: Warm, Dry, normal turgor, no rashes or lesions noted. <Altaf William - Last Filed: 07/12/16 14:24> Medical Decision Making - Medical Decision Making 07/12/16 14:03 The patient is a 61-year-old male with history of hypertension and chronic alcohol abuse with numerous emergency department visits at [facility] the emergency department intoxicated stating that he is hungry; he is without physical complaints at this time but appears to be clinically intoxicated. His vital signs are within normal parameters. Plan: 1. Observe until clinically sober and reevaluate 2. The patient has tolerated a lunch tray without nausea or vomiting <Verona Thomas - Last Filed: 07/12/16 14:03> *DC/Admit/Observation/Transfer - Attestations Physician Attestion: 07/12/16 14:04 I, Dr. Verona Thomas, attest that the scribes documentation that appears above has been prepared under my direction and personally reviewed by me in its entirety. I confirmed that the note above accurately reflects all work, treatment, procedures, and medical decision-making performed by me. <Verona Thomas - Last Filed: 07/12/16 14:03> - Attestations Scribe Attestion: 07/12/16 14:24 Documentation prepared by Altaf William, acting as emergency medical technician/driver for Verona Thomas MD. <Altaf William - Last Filed: 07/12/16 14:24> Diagnosis at time of Disposition: Alcohol abuse, Alcohol intoxication Addendum entered and electronically signed by Suraj Santa MD 07/12/16 21: 30: Progress Note - Progress Note Progress Note: eloped from the department
[2016-07-12 19:47] VITALS: BP 138/74; PULSE 83; TEMP 99.6
== END 2016-07-12 21:30 | disposition left against medical advice (07) ==
LOC: JER 12:32
DX: F10.220 Alcohol dependence with intoxication, uncomplicated (principal); C45.9 Mesothelioma, unspecified
CPT/HCPCS: 99282-25

== ENCOUNTER 2016-07-13 17:31 | Emergency (ER) | payer OTHER ==
[2016-07-13 18:22] VITALS: TEMP 97.8; BMI 36.6
--- NOTE | 2016-07-13 18:36 | PDOC ---
History of Present Illness <Regina Harrison - Last Filed: 07/13/16 19:16> - History of Present Illness Initial Comments: 07/13/16 18:35 62-year-old male with a past medical history of alcohol abuse, and prior mesothelioma He presents the emergency department with alcohol intoxication, and states that he fell and struck his head Patient is well-known to the emergency department throughout the years for similar complaints This is the patient's 11th visit to the emergency department this month The patient drinks 1 pint of vodka daily <Lalitha Navarro - Last Filed: 07/14/16 13:54> - General Chief Complaint: Alcohol intoxication Stated Complaint: INTOX,HIT HEAD Time Seen by Provider: 07/13/16 18:17 Past History <Regina Harrison - Last Filed: 07/13/16 19:16> - Past Medical History Anemia: No Asthma: No Cancer: Yes (mesothelioma) Cardiac Disorders: No CVA: No COPD: No CHF: No Dementia: No Diabetes: No GI Disorders: No Disorders: No HTN: No Hypercholesterolemia: No Kidney Stones: No Liver Disease: No Psychiatric Problems: Yes (alcoholism) Suicide Attempt (Hx): No Seizures: No Thyroid Disease: No - Surgical History Abdominal Surgery: No Appendectomy: No Cardiac Surgery: No Cholecystectomy: No Lung Surgery: No Neurologic Surgery: No Orthopedic Surgery: No - Family Disease History Family Disease History: CA: Mother - Reproductive History Testicular Surgery: No - Immunization History TDAP Vaccination: Yes Immunization Up to Date: Yes - Psycho/Social/Smoking Cessation Hx Anxiety: No Suicidal Ideation: No Smoking Status: No Smoking History: Never smoked Have you smoked in the past 12 months: No Number of Cigarettes Smoked Daily: 0 Cigars Per Day: 0 Information on smoking cessation initiated: No 'Breaking Loose' booklet given: 06/23/16 Hx Alcohol Use: Yes Drug/Substance Use Hx: No Substance Use Type: Alcohol Hx Substance Use Treatment: Yes (DETOX ) <Lalitha Navarro - Last Filed: 07/14/16 13:54> - Past Medical History Allergies/Adverse Reactions: Allergies Allergy/AdvReac Type Severity Reaction Status Date / Time No Known Allergies Allergy Verified 07/13/16 17:33 Home Medications: Ambulatory Orders NK [No Known Home Medication] 07/12/16 Review of Systems - Review of Systems Able to Perform ROS?: No (intoxicated) <Lalitha Navarro - Last Filed: 07/14/16 13:54> *Physical Exam - Vital Signs Last Vital Signs Temp Pulse Resp BP Pulse Ox 97.8 F 100 H 20 139/79 95 07/13/16 17:32 07/13/16 17:32 07/13/16 17:32 07/13/16 17:32 07/13/16 17:32 <HunterRegina - Last Filed: 07/13/16 19:16> - Vital Signs Last Vital Signs Temp Pulse Resp BP Pulse Ox 97.8 F 100 H 20 139/79 95 07/13/16 17:32 07/13/16 17:32 07/13/16 17:32 07/13/16 17:32 07/13/16 17:32 - Physical Exam Comments: 07/14/16 13:45 GENERAL: The patient is intoxicated but arousable to answer simple questions, and in no apparent distress. HEAD: Normal with no signs of trauma. No bruising is seen EYES: conjunctiva normal ENT: Number moist NECK: Normal range of motion, no C spine tenderness LUNGS: Breath sounds equal bilat HEART: Regular rate and rhythm, normal S1 and S2 without murmur, rub or gallop. ABDOMEN: Soft, nontender, normoactive bowel sounds. EXTREMITIES: Normal range of motion, no edema. NEUROLOGICAL: intoxicated but arousable to answer questions moving all extremities equally PSYCH: intoxicated SKIN: Warm, Dry, General Appearance: Yes: Intoxicated <Lalitha Navarro - Last Filed: 07/14/16 13:54> ED Treatment Course - LABORATORY CBC & Chemistry Diagram: 07/13/16 18:25 07/13/16 18:25 - RADIOLOGY Radiograph Interpretation: 07/13/16 19:16 Referring Physician: Lalitha Chowdary Patient Name: Sunil De Leon THIS IS A PRELIMINARYREPORT FROM IMAGING PROFESSOR [employer] DATE OF SERVICE: 2016-07-13 18:21:14.0 IMAGES: 77 EXAM: CT of the brain without contrast HISTORY:Trauma while intoxicated COMPARISON: None. FINDINGS:Serial transaxial images of the brain are available without intravenous contrast agent. There is moderately severe cortical atrophy with associated ventricular prominence. There is no midline shift or mass-effect or acute hemorrhage. No abnormal fluid collections are seen. Visible portions of the mastoid air cells are well-aerated. Visible portions of the paranasal sinuses demonstrate disease of the left maxillary and ethmoidal sinus. The calvarium appears intact IMPRESSION: Findings of chronic parenchymal changes of the brain THIS DOCUMENT HAS BEEN ELECTRONICALLY SIGNED Stanislaw Watson MD <Regina Harrison - Last Filed: 07/13/16 19:16> - LABORATORY CBC & Chemistry Diagram: 07/13/16 18:25 07/13/16 18:25 - RADIOLOGY Radiology Studies Ordered: Category Date Time Status HEAD CT WITHOUT CONTRAST [CT] Stat CT Scan 07/13/16 18:23 Ordered <Lalitha Navarro - Last Filed: 07/14/16 13:54> Medical Decision Making - Medical Decision Making 07/13/16 19:11 SIGN OUT Case discussed in detail with oncoming Emergency Physician including history, physical exam and ancillary studies. Oncoming Emergency Physician has assumed care for the patient and will complete the evaluation and treatment. Transfer of care to Dr. Alexis at 7:15pm <Lalitha Navarro - Last Filed: 07/14/16 13:54> *DC/Admit/Observation/Transfer <Regina Harrison - Last Filed: 07/13/16 19:16> <Lalitha Navarro - Last Filed: 07/14/16 13:54> Diagnosis at time of Disposition: Alcohol abuse, Alcohol intoxication - Discharge Dispostion Disposition: HOME Condition at time of disposition: Stable - Patient Instructions Printed Discharge Instructions: DI for Alcohol Abuse Additional Instructions: Return to the emergency department immediately with ANY new, persistent or worsening symptoms. Continue any medications as previously prescribed by your physician. You should follow up with your primary doctor as soon as possible regarding today's emergency department visit. . Please make sure your doctor reviews the results of your emergency evaluation. Thank you for coming to the Emergency Department today for your care. It was a pleasure to see you today. Please note that your evaluation is INCOMPLETE until you follow-up with your doctor.
[2016-07-13] MEDS ORDERED: SODIUM CHLORIDE 1,000 ML IV SCH (18:45)
[2016-07-13 19:04] LABS: MCH 29.3 pg (25.7-33.7); MCHC 31.8 g/dl (32.0-35.9); MEAN CELL VOLUME 91.9 fl (80-96); MEAN PLT VOLUME 7.8 fl (7.5-11.1); PLATELET COUNT 471 K/MM3 (134-434); RDW 15.4 % (11.9-15.9); WHITE BLOOD COUNT 6.6 K/mm3 (4.0-10.0)
[2016-07-13 19:11] LABS: ALBUMIN 3.4 g/dl (3.5-5.0); ALK PHOS 92 U/L (32-92); ANION GAP 16 (8-16); BILIRUBIN,TOTAL 0.2 mg/dl (0.2-1.0); CALCIUM 8.8 mg/dl (8.4-10.2); CO2 27 mmol/L (22-28); CREATININE 0.6 mg/dl (0.6-1.3); GLUCOSE,RANDOM 92 mg/dl (74-106); SGOT/AST 52 U/L (10-42); SGPT/ALT 36 U/L (10-40); TOT PROT 6.5 g/dl (6.4-8.3)
--- NOTE | 2016-07-13 19:41 | PDOC ---
*Physical Exam - Vital Signs Last Vital Signs Temp Pulse Resp BP Pulse Ox 97.8 F 100 H 20 139/79 95 07/13/16 17:32 07/13/16 17:32 07/13/16 17:32 07/13/16 17:32 07/13/16 17:32 ED Treatment Course - LABORATORY CBC & Chemistry Diagram: 07/13/16 18:25 07/13/16 18:25 - ADDITIONAL ORDERS Additional order review: Laboratory Results 07/13/16 07/13/16 18:25 18:25 Sodium 142 Potassium 3.3 L Chloride 99 Carbon Dioxide 27 Anion Gap 16 BUN 5 L Creatinine 0.6 Creat Clearance w eGFR > 60 Random Glucose 92 Calcium 8.8 Total Bilirubin 0.2 AST 52 H ALT 36 Alkaline Phosphatase 92 Total Protein 6.5 Albumin 3.4 L Alcohol, Quantitative 288.9 H* 07/13/16 18:25 RBC 4.05 MCV 91.9 MCHC 31.8 L RDW 15.4 MPV 7.8 Progress Note - Progress Note Progress Note: Care of this patient was transferred to pr at [address] Dejesus. Patient is a chronic alcoholic whose baseline blood alcohol level is usually around 200. Patient called the ambulance and was brought into the emergency room for evaluation of intoxication. Patient's blood alcohol level here was 288, his potassium was a little bit low and he will be given some K Dur, otherwise his labs are unremarkable he has a normal white count and no left shift. Patient is receiving some IV fluids. Patient will be observed for another couple of hours and then discharged home. 21:30 Reevaluation Patient is awake alert and complaining that he is hungry. Patient is able to stand and ambulate without assistance. Patient has now had 4 hours of observation and his blood alcohol level should be around 100. Patient discharged back to his longterm via taxi cab. *DC/Admit/Observation/Transfer Diagnosis at time of Disposition: Alcohol abuse, Alcohol intoxication - Discharge Dispostion Condition at time of disposition: Stable Admit: No - Patient Instructions Printed Discharge Instructions: DI for Alcohol Abuse Additional Instructions: Return to the emergency department immediately with ANY new, persistent or worsening symptoms. Continue any medications as previously prescribed by your physician. You should follow up with your primary doctor as soon as possible regarding today's emergency department visit. . Please make sure your doctor reviews the results of your emergency evaluation. Thank you for coming to the Emergency Department today for your care. It was a pleasure to see you today. Please note that your evaluation is INCOMPLETE until you follow-up with your doctor.
[2016-07-13 20:47] VITALS: BP 117/79; PULSE 82
== END 2016-07-13 21:32 | disposition home or self-care (01) ==
LOC: FER 17:31
DX: F10.120 Alcohol abuse with intoxication, uncomplicated (principal); C45.9 Mesothelioma, unspecified
CPT/HCPCS: 36415; 70450-TC; 80053; 80307; 85027; 99283-25

== ENCOUNTER 2016-07-14 00:36 | Emergency (ER) | payer OTHER ==
[2016-07-14 00:54] VITALS: BP 115/62; PULSE 90; TEMP 98.4; BMI 35.9
--- NOTE | 2016-07-14 01:34 | PDOC ---
History of Present Illness - General History Source: Patient Exam Limitations: Intoxication - History of Present Illness Initial Comments: 07/14/16 05:56 The patient is a 61 year old male, with a significant past medical history of mesothelioma, who presents to the emergency department with alcohol intoxication. The patient is well known to the ED throughout the years for similar complaints. This is the patient's 12th visit to the ED this month. The patient notes that he drinks 1 pint of vodka daily. Allergies: None Past surgical history: None reported Social history: Daily alcohol use (1 pint of vodka). No tobacco or drug use reported <Margaret Glynn - Last Filed: 07/14/16 05:55> <Lorri Kumar - Last Filed: 07/14/16 06:57> - General Chief Complaint: Alcohol intoxication Stated Complaint: INTOX Time Seen by Provider: 07/14/16 00:51 Past History <Margaret Glynn - Last Filed: 07/14/16 05:55> - Past Medical History Anemia: No Asthma: No Cancer: Yes (mesothelioma) Cardiac Disorders: No CVA: No COPD: No CHF: No Dementia: No Diabetes: No GI Disorders: No Disorders: No HTN: No Hypercholesterolemia: No Kidney Stones: No Liver Disease: No Psychiatric Problems: Yes (alcoholism) Suicide Attempt (Hx): No Seizures: No Thyroid Disease: No - Surgical History Abdominal Surgery: No Appendectomy: No Cardiac Surgery: No Cholecystectomy: No Lung Surgery: No Neurologic Surgery: No Orthopedic Surgery: No - Family Disease History Family Disease History: CA: Mother - Reproductive History Testicular Surgery: No - Immunization History TDAP Vaccination: Yes Immunization Up to Date: Yes - Psycho/Social/Smoking Cessation Hx Anxiety: No Suicidal Ideation: No Smoking Status: No Smoking History: Unknown if ever smoked Have you smoked in the past 12 months: No Number of Cigarettes Smoked Daily: 0 Cigars Per Day: 0 Information on smoking cessation initiated: No 'Breaking Loose' booklet given: 06/23/16 Hx Alcohol Use: No Drug/Substance Use Hx: No Substance Use Type: Alcohol Hx Substance Use Treatment: Yes (DETOX ) <Lorri Kumar - Last Filed: 07/14/16 06:57> - Past Medical History Allergies/Adverse Reactions: Allergies Allergy/AdvReac Type Severity Reaction Status Date / Time No Known Allergies Allergy Verified 07/14/16 00:51 Home Medications: Ambulatory Orders NK [No Known Home Medication] 07/12/16 Review of Systems - Review of Systems Able to Perform ROS?: Yes Comments:: 07/14/16 05:57 GENERAL/CONSTITUTIONAL: No fever or chills. No weakness. HEAD, EYES, EARS, NOSE AND THROAT: No change in vision. No ear pain or discharge. No sore throat. CARDIOVASCULAR: No chest pain or shortness of breath. RESPIRATORY: No cough, wheezing, or hemoptysis. GASTROINTESTINAL: No nausea, vomiting, diarrhea or constipation. GENITOURINARY: No dysuria, frequency, or change in urination. MUSCULOSKELETAL: No joint or muscle swelling or pain. No neck or back pain. SKIN: No rash NEUROLOGIC: No headache, vertigo, loss of consciousness, or change in strength/ sensation. ENDOCRINE: No increased thirst. No abnormal weight change. HEMATOLOGIC/LYMPHATIC: No anemia, easy bleeding, or history of blood clots. ALLERGIC/IMMUNOLOGIC: No hives or skin allergy. <Margaret Glynn - Last Filed: 07/14/16 05:55> *Physical Exam - Vital Signs Last Vital Signs Temp Pulse Resp BP Pulse Ox 98.4 F 90 14 115/62 97 07/14/16 00:52 07/14/16 00:52 07/14/16 00:52 07/14/16 00:52 07/14/16 00:52 - Physical Exam Comments: 07/14/16 05:58 GENERAL: Awake, alert, and fully oriented, in no acute distress HEAD: No signs of trauma EYES: PERRLA, EOMI, sclera anicteric, conjunctiva clear ENT: Auricles normal inspection, hearing grossly normal, nares patent, oropharynx clear without exudates. Moist mucosa NECK: Normal ROM, supple, no lymphadenopathy, JVD, or masses LUNGS: Breath sounds equal, clear to auscultation bilaterally. No wheezes, and no crackles HEART: Regular rate and rhythm, normal S1 and S2, no murmurs, rubs or gallops ABDOMEN: Soft, nontender, normoactive bowel sounds. No guarding, no rebound. No masses EXTREMITIES: Normal range of motion, no edema. No clubbing or cyanosis. No cords, erythema, or tenderness NEUROLOGICAL: Cranial nerves II through XII grossly intact. Normal speech, normal gait SKIN: Warm, Dry, normal turgor, no rashes or lesions noted. <Margaret Glynn - Last Filed: 07/14/16 05:55> - Vital Signs Last Vital Signs Temp Pulse Resp BP Pulse Ox 98.4 F 90 14 115/62 97 07/14/16 00:52 07/14/16 00:52 07/14/16 00:52 07/14/16 00:52 07/14/16 00:52 <Lorri Kumar - Last Filed: 07/14/16 06:57> Medical Decision Making - Medical Decision Making 07/14/16 06:01 Pt comes as he always done for alcohol abuse and to stay warm from the cold and to sleep in the ER among his friends. Pt has no complaints tonight and he will leave in the AM when he wakes up. 2 days ago he was complaining of a green sputum cough and I gave him zithromax; I gave him second dose today. 07/14/16 06:56 Pt is awake and about and he wants to leave ER. <Lorri Kumar - Last Filed: 07/14/16 06:57> *DC/Admit/Observation/Transfer - Attestations Scribe Attestion: 07/14/16 05:58 Documentation prepared by JOSE ANTONIO Cullen, acting as phlebotomist medical lab assistant for Lorri Kumar MD. <Margaret Glynn - Last Filed: 07/14/16 05:55> - Discharge Dispostion Admit: No <Lorri Kumar - Last Filed: 07/14/16 06:57> Diagnosis at time of Disposition: Alcohol abuse - Discharge Dispostion Disposition: HOME Condition at time of disposition: Improved - Patient Instructions Printed Discharge Instructions: DI for Alcohol Abuse
[2016-07-14] MEDS ORDERED: POTASSIUM CHLORIDE TABS 20 MEQ TABLET.ER (FP) PO ONE ×2 (05:32→05:53)
[2016-07-14] MEDS ORDERED: AZITHROMYCIN 250 MG TABLET (FP) PO ONE (05:32)
[2016-07-14] MEDS ORDERED: AZITHROMYCIN 250 MG TABLET (FP) ONE (05:53)
== END 2016-07-14 07:16 | disposition home or self-care (01) ==
LOC: JER 00:36
DX: F10.220 Alcohol dependence with intoxication, uncomplicated (principal); C45.9 Mesothelioma, unspecified
CPT/HCPCS: 99282-25

== ENCOUNTER 2016-07-15 14:15 | Emergency (ER) | payer OTHER ==
[2016-07-15 14:18] VITALS: TEMP 98; BMI 31.5
--- NOTE | 2016-07-15 15:22 | PDOC ---
History of Present Illness - General Chief Complaint: Alcohol intoxication Stated Complaint: INTOX Time Seen by Provider: 07/15/16 14:37 History Source: Patient Exam Limitations: No Limitations - History of Present Illness Initial Comments: 07/15/16 17:18 61y M hx of etoh abuse, mesothelioma BIBEMS for intoxication pt without complaints Past History - Past Medical History Allergies/Adverse Reactions: Allergies Allergy/AdvReac Type Severity Reaction Status Date / Time No Known Allergies Allergy Verified 07/15/16 14:16 Home Medications: Ambulatory Orders NK [No Known Home Medication] 07/12/16 Anemia: No Asthma: No Cancer: Yes (mesothelioma) Cardiac Disorders: No CVA: No COPD: No CHF: No Dementia: No Diabetes: No GI Disorders: No Disorders: No HTN: No Hypercholesterolemia: No Kidney Stones: No Liver Disease: No Psychiatric Problems: Yes (alcoholism) Suicide Attempt (Hx): No Seizures: No Thyroid Disease: No - Surgical History Abdominal Surgery: No Appendectomy: No Cardiac Surgery: No Cholecystectomy: No Lung Surgery: No Neurologic Surgery: No Orthopedic Surgery: No - Family Disease History Family Disease History: CA: Mother - Reproductive History Testicular Surgery: No - Immunization History TDAP Vaccination: Yes Immunization Up to Date: Yes - Psycho/Social/Smoking Cessation Hx Anxiety: No Suicidal Ideation: No Smoking Status: No Smoking History: Never smoked Have you smoked in the past 12 months: No Number of Cigarettes Smoked Daily: 0 Cigars Per Day: 0 Information on smoking cessation initiated: No 'Breaking Loose' booklet given: 06/23/16 Hx Alcohol Use: No Drug/Substance Use Hx: Yes (alcohol) Substance Use Type: Alcohol Hx Substance Use Treatment: Yes (DETOX ) Review of Systems - Review of Systems Constitutional: No: Chills, Fever Respiratory: No: Cough Cardiac (ROS): No: Chest Pain ABD/GI: No: Nausea, Vomiting, Abdominal cramping Musculoskeletal: No: Back Pain Neurological: No: Headache *Physical Exam - Vital Signs Last Vital Signs Temp Pulse Resp BP Pulse Ox 98.0 F 83 18 119/74 100 07/15/16 14:17 07/15/16 14:17 07/15/16 14:17 07/15/16 14:17 07/15/16 14:17 - Physical Exam Comments: 07/15/16 17:22 GENERAL: The patient is intoxicated, poor hygeine HEAD: Normocephalic, atraumatic. EYES: extraocular movements intact, sclera anicteric, conjunctiva clear. ENT: Normal voice, Moist mucous membranes. NECK: Normal range of motion, supple LUNGS: Breath sounds equal, clear to auscultation bilaterally. No wheezes, no rhonchi, no rales. HEART: Regular rate and rhythm, ABDOMEN: Soft, nontender, EXTREMITIES: Normal range of motion, NEUROLOGICAL: No facial assymetry, Normal speech, moving all 4 extremities symmetrically Medical Decision Making - Medical Decision Making 07/15/16 17:17 Will observe for sobriety *DC/Admit/Observation/Transfer Diagnosis at time of Disposition: Alcohol abuse - Discharge Dispostion Disposition: HOME - Patient Instructions Printed Discharge Instructions: DI for Alcohol Abuse
--- NOTE | 2016-07-16 05:38 | PDOC ---
*Physical Exam - Vital Signs Last Vital Signs Temp Pulse Resp BP Pulse Ox 98.0 F 83 18 119/74 100 07/15/16 14:17 07/15/16 14:17 07/15/16 14:17 07/15/16 14:17 07/15/16 14:17 *DC/Admit/Observation/Transfer Diagnosis at time of Disposition: Alcohol abuse - Discharge Dispostion Disposition: HOME Condition at time of disposition: Stable Admit: No - Patient Instructions Printed Discharge Instructions: DI for Alcohol Abuse
[2016-07-16 05:39] VITALS: BP 121/68; PULSE 78
== END 2016-07-16 05:39 | disposition home or self-care (01) ==
LOC: JER 14:15
DX: F10.120 Alcohol abuse with intoxication, uncomplicated (principal); C45.9 Mesothelioma, unspecified
CPT/HCPCS: 99282-25

== ENCOUNTER → 2016-07-18 | Emergency (ER) | payer OTHER ==
[2016-07-18 20:24] VITALS: TEMP 97.1; BMI 35.9
--- NOTE | 2016-07-18 21:46 | PDOC ---
History of Present Illness - General History Source: Patient Exam Limitations: Intoxication - History of Present Illness Initial Comments: 07/18/16 22:11 The patient is a 61 year old male, with a significant past medical history of ETOH abuse and mesothelioma, who presents to the emergency department complaining of back pain secondary to intoxication today. The patient reports he consumed 1 pint of liquor today, The patient reports he is inebriated and comes in because the weather is too cold outside. The patient has no further complaints at this time. The patients history is limited due to current clinical condition. Patient denies fever, chills, cough, headache, and dizziness. Patient denies chest pain, diaphoresis, palpitations, and shortness of breath. Patient denies nausea, vomiting, diarrhea, and constipation. Patient denies dysuria, frequency, urgency, and hematuria. Allergies: None reported. Social History: ETOH abuse. Non-smoker. Denies drug use. <Marjorie Yarbrough - Last Filed: 07/18/16 22:19> <Lorri Kumar - Last Filed: 07/20/16 03:47> - General Chief Complaint: Back Pain Stated Complaint: INTOXICATED/BACK PAIN Time Seen by Provider: 07/18/16 20:38 Past History <Marjorie Yarbrough - Last Filed: 07/18/16 22:19> - Past Medical History Anemia: No Asthma: No Cancer: Yes (mesothelioma) Cardiac Disorders: No CVA: No COPD: No CHF: No Dementia: No Diabetes: No GI Disorders: No Disorders: No HTN: No Hypercholesterolemia: No Kidney Stones: No Liver Disease: No Psychiatric Problems: Yes (alcoholism) Suicide Attempt (Hx): No Seizures: No Thyroid Disease: No - Surgical History Abdominal Surgery: No Appendectomy: No Cardiac Surgery: No Cholecystectomy: No Lung Surgery: No Neurologic Surgery: No Orthopedic Surgery: No - Family Disease History Family Disease History: CA: Mother - Reproductive History Testicular Surgery: No - Immunization History TDAP Vaccination: Yes Immunization Up to Date: Yes - Psycho/Social/Smoking Cessation Hx Anxiety: No Suicidal Ideation: No Smoking Status: No Smoking History: Smoker current status UNK Have you smoked in the past 12 months: No Number of Cigarettes Smoked Daily: 0 Cigars Per Day: 0 Information on smoking cessation initiated: No 'Breaking Loose' booklet given: 06/23/16 Hx Alcohol Use: Yes (Daily) Drug/Substance Use Hx: No Substance Use Type: Alcohol Hx Substance Use Treatment: Yes (DETOX ) <Lorri Kumar - Last Filed: 07/20/16 03:47> - Past Medical History Allergies/Adverse Reactions: Allergies Allergy/AdvReac Type Severity Reaction Status Date / Time No Known Allergies Allergy Verified 07/18/16 20:24 Home Medications: Ambulatory Orders NK [No Known Home Medication] 07/12/16 Review of Systems - Review of Systems Able to Perform ROS?: No Comments:: 07/18/16 22:00 ROS limited due to the patient's clinical condition. <Marjorie Yarbrough - Last Filed: 07/18/16 22:19> *Physical Exam - Vital Signs Last Vital Signs Temp Pulse Resp BP Pulse Ox 97.1 F L 93 H 20 141/78 96 07/18/16 20:19 07/18/16 20:19 07/18/16 20:19 07/18/16 20:19 07/18/16 20:19 - Physical Exam Comments: 07/18/16 21:59 GENERAL: Asleep. In no acute distress HEAD: No signs of trauma EYES: PERRLA, EOMI, sclera anicteric, conjunctiva clear ENT: Auricles normal inspection, hearing grossly normal, nares patent, oropharynx clear without exudates. Moist mucosa NECK: Normal ROM, supple, no lymphadenopathy, JVD, or masses LUNGS: Breath sounds equal, clear to auscultation bilaterally. No wheezes, and no crackles HEART: Regular rate and rhythm, normal S1 and S2, no murmurs, rubs or gallops ABDOMEN: Soft, nontender, normoactive bowel sounds. No guarding, no rebound. No masses EXTREMITIES: Normal range of motion, no edema. No clubbing or cyanosis. No cords, erythema, or tenderness NEUROLOGICAL: Cranial nerves II through XII grossly intact. Normal speech, normal gait SKIN: Warm, Dry, normal turgor, no rashes or lesions noted. <ZenonAlvaalex - Last Filed: 07/18/16 22:19> - Vital Signs Last Vital Signs Temp Pulse Resp BP Pulse Ox 97.1 F L 93 H 20 141/78 96 07/18/16 20:19 07/18/16 20:19 07/18/16 20:19 07/18/16 20:19 07/18/16 20:19 <Lorri Kumar - Last Filed: 07/20/16 03:47> Medical Decision Making - Medical Decision Making Pt comes with a history of lightheadedness for 1 week and he is worried that there may be some bleed in his brain as he is on coumadin and recently his INR went to 5. Head CT is normal and exam is normal and pt is feeling better. He will be discharged home with family and asked to follow with PMD. His BUN and Cr were elevated; he has been hydrated with a L of NSS. <Lorri Kumar - Last Filed: 07/20/16 03:47> *DC/Admit/Observation/Transfer - Attestations Scribe Attestion: 07/18/16 22:00 Documentation prepared by Marjorie Yarbrough, acting as medical device sales consultant for Lorri Kumar MD. <Marjorie Yarbrough - Last Filed: 07/18/16 22:19> <Lorri Kumar - Last Filed: 07/20/16 03:47> Diagnosis at time of Disposition: Alcohol abuse - Discharge Dispostion Disposition: HOME Condition at time of disposition: Fair - Referrals Referrals: STAFF,NOT ON [Primary Care Provider] -
[2016-07-19 06:29] VITALS: BP 147/75; PULSE 97
== END | disposition home or self-care (01) ==
LOC: SUPCPDRO 20:05 → JER 20:05
DX: F10.220 Alcohol dependence with intoxication, uncomplicated (principal); Z86.018 Personal history of other benign neoplasm
CPT/HCPCS: 99281-25

== ENCOUNTER → 2016-07-20 | Emergency (ER) | payer OTHER ==
[~2016-07-20] MED LIST: chlordiazePOXIDE HCL 25 MG CAPSULE PO ONE
[2016-07-20 23:55] VITALS: BMI 31.5
--- NOTE | 2016-07-21 01:21 | PDOC ---
History of Present Illness - General Chief Complaint: Alcohol intoxication Stated Complaint: INTOX History Source: Patient Exam Limitations: No Limitations - History of Present Illness Initial Comments: 07/21/16 01:18 Patient is a 61 year old male with h/o mesotheloma, alcohol abuse here for alcohol intoxication. PMHX; as above PSOCHX: homeless, acohol abuse PFamhx: noncontributory GENERAL/CONSTITUTIONAL: [No fever or chills. No weakness. No weight change.] HEAD, EYES, EARS, NOSE AND THROAT: [No change in vision. No ear pain or discharge. No sore throat.] CARDIOVASCULAR: [No chest pain or shortness of breath.] RESPIRATORY: [No cough, wheezing, or hemoptysis.] GASTROINTESTINAL: [No nausea, vomiting, diarrhea or constipation. No rectal bleeding.] GENITOURINARY: [No dysuria, frequency, or change in urination.] MUSCULOSKELETAL: [No joint or muscle swelling or pain. No neck (+) chronic back pain.] SKIN AND BREASTS: [No rash or easy bruising.] NEUROLOGIC: [No headache, vertigo, loss of consciousness, or loss of sensation.] PSYCHIATRIC: [No depression or anxiety.] ENDOCRINE: [No increased thirst. No abnormal weight change.] HEMATOLOGIC/LYMPHATIC: [No anemia, easy bleeding, or history of blood clots.] ALLERGIC/IMMUNOLOGIC: [No hives or skin allergy. No latex allergy.] GENERAL: [The patient is awake, alert, and fully oriented, in no acute distress. ] HEAD: [Normal with no signs of trauma.] EYES: [Pupils equal, round and reactive to light, extraocular movements intact, sclera anicteric, conjunctiva clear.] ENT: [Ears normal, nares patent, oropharynx clear without exudates. Moist mucous membranes.] NECK: [Normal range of motion, supple without lymphadenopathy, JVD, or masses.] LUNGS: [Breath sounds equal, clear to auscultation bilaterally. No wheezes, and no crackles.] HEART: [Regular rate and rhythm, normal S1 and S2 without murmur, rub.] ABDOMEN: [Soft, nontender, normoactive bowel sounds. No guarding, no rebound. No masses.] EXTREMITIES: [Normal range of motion, no edema. No clubbing or cyanosis. No cords, erythema, or tenderness.] NEUROLOGICAL: [Cranial nerves II through XII grossly intact. Normal speech, normal gait.] PSYCH: [Normal mood, normal affect.] SKIN: [Warm, Dry, normal turgor, no rashes or lesions noted.] Past History - Past Medical History Allergies/Adverse Reactions: Allergies Allergy/AdvReac Type Severity Reaction Status Date / Time No Known Allergies Allergy Verified 07/20/16 23:53 Home Medications: Ambulatory Orders NK [No Known Home Medication] 07/12/16 Anemia: No Asthma: No Cancer: Yes (mesothelioma) Cardiac Disorders: No CVA: No COPD: No CHF: No Dementia: No Diabetes: No GI Disorders: No Disorders: No HTN: No Hypercholesterolemia: No Kidney Stones: No Liver Disease: No Psychiatric Problems: Yes (alcoholism) Suicide Attempt (Hx): No Seizures: No Thyroid Disease: No - Surgical History Abdominal Surgery: No Appendectomy: No Cardiac Surgery: No Cholecystectomy: No Lung Surgery: No Neurologic Surgery: No Orthopedic Surgery: No - Family Disease History Family Disease History: CA: Mother - Reproductive History Testicular Surgery: No - Immunization History TDAP Vaccination: Yes Immunization Up to Date: Yes - Psycho/Social/Smoking Cessation Hx Anxiety: No Suicidal Ideation: No Smoking Status: No Smoking History: Never smoked Have you smoked in the past 12 months: No Number of Cigarettes Smoked Daily: 0 Cigars Per Day: 0 'Breaking Loose' booklet given: 06/23/16 Hx Alcohol Use: No Drug/Substance Use Hx: Yes (alcohol) Substance Use Type: Alcohol Hx Substance Use Treatment: Yes (DETOX ) *Physical Exam - Vital Signs Last Vital Signs Temp Pulse Resp BP Pulse Ox 97.3 F L 65 18 134/78 96 07/20/16 23:54 07/20/16 23:54 07/20/16 23:54 07/20/16 23:54 07/20/16 23:54 Medical Decision Making - Medical Decision Making 07/21/16 01:19 patient is a -year-old male with history mesothelioma and alcohol intoxication brought in for intoxication. No intervention will sleep pending discharge when sober. 07/21/16 06:51 patient eloped *DC/Admit/Observation/Transfer Diagnosis at time of Disposition: Alcohol abuse, Alcohol intoxication - Discharge Dispostion Disposition: ELOPED Condition at time of disposition: Stable - Patient Instructions Additional Instructions: Your Discharge Instructions: You must call primary care physician within 24 hours to arrange follow-up. Return to the Emergency Department with any new, persistent or worsening symptoms, for fever, chills, SOB, dizziness or any other concerning changes that may occur. stop drinking Addendum entered and electronically signed by Ashutosh Patel 07/21/16 07: 07: Progress Note - Progress Note Progress Note: 0658 Informed by nurse that patient came back to the ED now c/o that he feels shaky and dizzy. Given Librium 100mg po. Selected Entries 07/21/16 06:57 Pulse Rate [ 87 Left] Respiratory 16 Rate Blood Pressure 106/57 [Right Arm] O2 Sat by Pulse 95 Oximetry (%) will endorsed to the day team pending disposition.
[2016-07-21 08:15] VITALS: BP 112/57; PULSE 81; TEMP 97.8
== END | disposition left against medical advice (07) ==
LOC: JER 23:48
DX: F10.220 Alcohol dependence with intoxication, uncomplicated (principal); Z86.018 Personal history of other benign neoplasm
CPT/HCPCS: 99282-25

== ENCOUNTER 2016-07-21 15:44 | Emergency (ER) | payer OTHER ==
[2016-07-21 15:57] VITALS: BP 112/75; PULSE 85; TEMP 97.5; BMI 31.1
--- NOTE | 2016-07-21 17:47 | PDOC ---
*Physical Exam - Vital Signs Last Vital Signs Temp Pulse Resp BP Pulse Ox 97.5 F L 85 16 112/75 97 07/21/16 15:53 07/21/16 15:53 07/21/16 15:53 07/21/16 15:53 07/21/16 15:53 *DC/Admit/Observation/Transfer Diagnosis at time of Disposition: Patient left after triage - Discharge Dispostion Disposition: LEFT BEFORE ANGELO WOOD
--- NOTE | 2016-07-21 17:57 | PDOC ---
History of Present Illness - General Chief Complaint: Alcohol intoxication Stated Complaint: INTOX Time Seen by Provider: 07/21/16 17:21 Past History - Past Medical History Allergies/Adverse Reactions: Allergies Allergy/AdvReac Type Severity Reaction Status Date / Time No Known Allergies Allergy Verified 07/21/16 15:57 Home Medications: Ambulatory Orders NK [No Known Home Medication] 07/12/16 Anemia: No Asthma: No Cancer: Yes (mesothelioma) Cardiac Disorders: No CVA: No COPD: No CHF: No Dementia: No Diabetes: No GI Disorders: No Disorders: No HTN: No Hypercholesterolemia: No Kidney Stones: No Liver Disease: No Psychiatric Problems: Yes (alcoholism) Suicide Attempt (Hx): No Seizures: No Thyroid Disease: No - Surgical History Abdominal Surgery: No Appendectomy: No Cardiac Surgery: No Cholecystectomy: No Lung Surgery: No Neurologic Surgery: No Orthopedic Surgery: No - Family Disease History Family Disease History: CA: Mother - Reproductive History Testicular Surgery: No - Immunization History TDAP Vaccination: Yes Immunization Up to Date: Yes - Psycho/Social/Smoking Cessation Hx Anxiety: No Suicidal Ideation: No Smoking Status: No Smoking History: Current some day smoker Have you smoked in the past 12 months: No Number of Cigarettes Smoked Daily: 0 Cigars Per Day: 0 Information on smoking cessation initiated: No 'Breaking Loose' booklet given: 06/23/16 Hx Alcohol Use: No Drug/Substance Use Hx: Yes (alcohol) Substance Use Type: Alcohol Hx Substance Use Treatment: Yes (DETOX ) *Physical Exam - Vital Signs Last Vital Signs Temp Pulse Resp BP Pulse Ox 97.5 F L 85 16 112/75 97 07/21/16 15:53 07/21/16 15:53 07/21/16 15:53 07/21/16 15:53 07/21/16 15:53 *DC/Admit/Observation/Transfer Diagnosis at time of Disposition: Patient left after triage - Discharge Dispostion Disposition: LEFT BEFORE ANGELO WOOD - Attestations Physician Attestion: 07/21/16 17:56 I, Dr. Jacob Bertrand, attest that this document has been prepared under my direction and personally reviewed by me in its entirety. I further attest, that it accurately reflects all work, treatment, procedures and medical decision -making performed by me.
== END 2016-07-21 17:00 | disposition left against medical advice (07) ==
LOC: JER 15:44
DX: Z53.21 Procedure and treatment not carried out due to patient leaving prior to being seen by health care provider (principal); F17.210 Nicotine dependence, cigarettes, uncomplicated
CPT/HCPCS: 99281-25

== ENCOUNTER 2016-07-21 17:58 | Emergency (ER) | payer OTHER ==
[2016-07-21 18:29] VITALS: BP 124/86; PULSE 90; TEMP 98.4; BMI 30.2
--- NOTE | 2016-07-21 22:16 | PDOC ---
History of Present Illness - General Chief Complaint: Alcohol intoxication Stated Complaint: INTOXICATED/BACK PAIN Time Seen by Provider: 07/21/16 22:03 History Source: Patient, Old Records Exam Limitations: Intoxication - History of Present Illness Initial Comments: 61 y m etoh dependance, multiple visits to er and admits to [facility]. usual complaints: chest and back pain. came at around 5 pm today but left after triage. returns now c/o low back pain. sts no trauma "it's my old back pain" has never seen md for this because "it's hereditary". ambulatory but unsteady. aob. in nad. Past History - Past Medical History Allergies/Adverse Reactions: Allergies No Known Allergies Allergy (Verified 07/21/16 18:25) Home Medications: Ambulatory Orders NK [No Known Home Medication] 07/12/16 - Immunization History Immunization Up to Date: Yes Tetanus Status: Unknown - Social History Smoking History: No Smoking Status: Current some day smoker Number of Cigarettes Per Day: 0 Cigars Per Day: 0 *Review of Systems - Review of Systems Able to Perform ROS?: Yes Constitutional: No: Symptoms Reported HEENTM: No: Symptoms Reported Respiratory: No: Symptoms reported Cardiac (ROS): No: Symptoms Reported ABD/GI: No: Symptoms Reported Musculoskeletal: Yes: Symptoms Reported, See HPI Neurological: No: Symptoms reported All Other Systems: Reviewed and Negative *Physical Exam - Vital Signs Last Vital Signs Temp Pulse Resp BP Pulse Ox 98.4 F 90 16 124/86 96 07/21/16 18:25 07/21/16 18:25 07/21/16 18:25 07/21/16 18:25 07/21/16 18:25 - Physical Exam General Appearance: Yes: Nourished, Disheveled, Alcohol on Breath, Intoxicated, Obese. No: Apparent Distress HEENT: positive: EOMI, DOUGLAS, Normal ENT Inspection Neck: positive: Supple. negative: Tender Respiratory/Chest: positive: Lungs Clear, Normal Breath Sounds. negative: Respiratory Distress Cardiovascular: positive: Regular Rhythm, Regular Rate Gastrointestinal/Abdominal: positive: Normal Bowel Sounds, Soft. negative: Tender Musculoskeletal: positive: Normal Inspection. negative: Vertebral Tenderness Extremity: positive: Normal Capillary Refill. negative: Normal Range of Motion (ltd rom 2/2 pain ) Integumentary: positive: Normal Color Neurologic: positive: Fully Oriented, Alert, Normal Mood/Affect, Normal Response , Motor Strength 10/17 Plan - Progress Note Progress Note: 07/21/16 22:15 etoh intox chronic back pain toradol will let him sober up in ed *DC/Admit/Observation/Transfer Diagnosis at time of Disposition: Alcohol abuse, Alcohol intoxication, Back pain of thoracolumbar region - Discharge Dispostion Disposition: HOME Condition at time of disposition: Improved - Patient Instructions Printed Discharge Instructions: DI for Alcohol Abuse
[2016-07-22] MEDS ORDERED: KETOROLAC TROMETHAMINE 30 MG/1 ML VIAL IM ONE (04:01)
[2016-07-22] MEDS ORDERED: KETOROLAC TROMETHAMINE 30 MG/1 ML VIAL ONE (04:04)
== END 2016-07-22 06:56 | disposition home or self-care (01) ==
LOC: JER 17:58
PROC: 3E0233Z Introduction of Anti-inflammatory into Muscle, Percutaneous Approach (ICD-10-PCS; principal; 2016-07-21)
DX: F10.220 Alcohol dependence with intoxication, uncomplicated (principal); M54.5 Low back pain
CPT/HCPCS: 96372; 99283-25

== ENCOUNTER 2016-07-22 23:45 | Emergency (ER) | payer OTHER ==
--- NOTE | 2016-07-23 00:05 | PDOC ---
History of Present Illness - General History Source: Patient, EMS Exam Limitations: No Limitations - History of Present Illness Initial Comments: The patient is a 61 yo M with a PMHx of mesothelioma, EtOH dependence, a frequent patient in this ED, who presents with lower back pain. The patient states he was sleeping on a bench throughout the day. He reports he has never been evaluated for this pain however states it is hereditary. <Zo Mtz - Last Filed: 07/23/16 00:10> <Oleg Marx - Last Filed: 07/23/16 06:41> - General Chief Complaint: Alcohol intoxication Stated Complaint: BACK PAIN/INTOX Time Seen by Provider: 07/22/16 23:49 Past History <Zo Mtz - Last Filed: 07/23/16 00:10> - Immunization History Immunization Up to Date: Yes Tetanus Status: Unknown - Social History Smoking History: No Smoking Status: Current some day smoker Number of Cigarettes Per Day: 0 Cigars Per Day: 0 <Oleg Marx - Last Filed: 07/23/16 06:41> - Past Medical History Allergies/Adverse Reactions: Allergies No Known Allergies Allergy (Verified 07/23/16 00:00) Home Medications: Ambulatory Orders NK [No Known Home Medication] 07/12/16 *Review of Systems - Review of Systems Able to Perform ROS?: Yes Comments:: 07/23/16 00:12 + Lower back pain <Zo Mtz - Last Filed: 07/23/16 00:10> *Physical Exam - Vital Signs Last Vital Signs Temp Pulse Resp BP Pulse Ox 97.1 F L 87 14 137/67 96 07/23/16 00:01 07/23/16 00:01 07/23/16 00:01 07/23/16 00:01 07/23/16 00:01 <Zo Mtz - Last Filed: 07/23/16 00:10> - Physical Exam General Appearance: Yes: Nourished, Disheveled, Alcohol on Breath, Intoxicated. No: Apparent Distress HEENT: positive: Normal ENT Inspection Neck: positive: Supple Respiratory/Chest: positive: Lungs Clear, Normal Breath Sounds. negative: Chest Tender, Respiratory Distress Cardiovascular: positive: Regular Rhythm, Regular Rate Gastrointestinal/Abdominal: positive: Soft. negative: Tender Musculoskeletal: positive: Normal Inspection. negative: Vertebral Tenderness Extremity: positive: Normal Capillary Refill, Normal Range of Motion Integumentary: positive: Normal Color Neurologic: positive: Alert, Normal Mood/Affect, Normal Response, Motor Strength 5/5 <Oleg Marx - Last Filed: 07/23/16 06:41> *DC/Admit/Observation/Transfer - Attestations Scribe Attestion: 07/23/16 00:14 Documentation prepared by Zo Mtz, acting as paramedical aide for Oleg Marx MD <Zo Mtz - Last Filed: 07/23/16 00:10> <Oleg Marx - Last Filed: 07/23/16 06:41> Diagnosis at time of Disposition: Alcohol intoxication, Alcohol abuse - Discharge Dispostion Disposition: HOME Condition at time of disposition: Improved - Patient Instructions Printed Discharge Instructions: DI for Alcohol Abuse
[2016-07-23 00:08] VITALS: TEMP 97.1; BMI 34.8
[2016-07-23 06:46] VITALS: BP 113/75; PULSE 80
== END 2016-07-23 06:46 | disposition home or self-care (01) ==
LOC: JER 23:45
DX: F10.120 Alcohol abuse with intoxication, uncomplicated (principal); C45.9 Mesothelioma, unspecified
CPT/HCPCS: 99282-25

== ENCOUNTER 2016-07-29 16:11 | Emergency (ER) | payer OTHER ==
[2016-07-29 16:18] VITALS: BP 124/71; PULSE 93; TEMP 98; BMI 30.7
--- NOTE | 2016-07-29 16:19 | PDOC ---
Medical Decision Making - Medical Decision Making 07/29/16 16:16 Rapid Medical Triage: Pt comes in to the ER drunk with alcohol. COmes via EMS; they [place] from outside the train station because he could not get up on his own. Pt is awake and joking and he is asking the EMS women out to dinner vs requesting a hospital dinner. Pt is afebrile. Pt has no abdominal pain. No cough. Pt appears better than he usually does *DC/Admit/Observation/Transfer Diagnosis at time of Disposition: Alcohol intoxication - Discharge Dispostion Disposition: HOME Condition at time of disposition: Stable - Patient Instructions Printed Discharge Instructions: DI for Alcohol Abuse Additional Instructions: Stop drinking
--- NOTE | 2016-07-29 17:28 | PDOC ---
History of Present Illness - General Chief Complaint: Alcohol intoxication Stated Complaint: INTOX Time Seen by Provider: 07/29/16 16:15 History Source: Patient Exam Limitations: No Limitations - History of Present Illness Initial Comments: 07/29/16 17:28 Patient well-known to this emergency Department here with intoxication. States was hungry and drunk and unable to stand while [place] train station today. Eyes falling, denies head injury, denies any other pain or injury. States was drinking. Bystander called EMS who transported patient to this emergency department for evaluation. 07/29/16 18:21 Occurred: reports: this morning, this afternoon Severity: reports: mild Pain Location: reports: none Loss of Consciousness: no loss of consciousness Associated Symptoms (Fall): denies symptoms, confusion Past History - Travel Traveled outside of the country in the last 30 days: No Close contact w/someone who was outside of country & ill: No - Past Medical History Allergies/Adverse Reactions: Allergies Allergy/AdvReac Type Severity Reaction Status Date / Time No Known Allergies Allergy Verified 07/29/16 16:14 Home Medications: Ambulatory Orders NK [No Known Home Medication] 07/12/16 Anemia: No Asthma: No Cancer: Yes (mesothelioma) Cardiac Disorders: No CVA: No COPD: No CHF: No Dementia: No Diabetes: No GI Disorders: No Disorders: No HTN: No Hypercholesterolemia: No Kidney Stones: No Liver Disease: No Psychiatric Problems: Yes (alcoholism) Suicide Attempt (Hx): No Seizures: No Thyroid Disease: No - Surgical History Abdominal Surgery: No Appendectomy: No Cardiac Surgery: No Cholecystectomy: No Lung Surgery: No Neurologic Surgery: No Orthopedic Surgery: No - Family Disease History Family Disease History: CA: Mother - Reproductive History Testicular Surgery: No - Immunization History TDAP Vaccination: Yes Immunization Up to Date: Yes - Psycho/Social/Smoking Cessation Hx Anxiety: No Suicidal Ideation: No Smoking Status: No Smoking History: Never smoked Have you smoked in the past 12 months: No Number of Cigarettes Smoked Daily: 0 Cigars Per Day: 0 Information on smoking cessation initiated: Yes 'Breaking Loose' booklet given: 07/29/16 Hx Alcohol Use: Yes (daily) Drug/Substance Use Hx: No Substance Use Type: None Hx Substance Use Treatment: Yes (DETOX ) Trauma Specific PMHX - Complaint Specific PMHX Arthritis: No Back Injury: Yes (seen at this hospital for the rib fractures) Review of Systems - Review of Systems Able to Perform ROS?: Yes Is the patient limited Cymro proficient: Yes Constitutional: Yes: Symptoms Reported, See HPI, Malaise. No: Fever HEENTM: Yes: See HPI. No: Symptoms Reported Respiratory: Yes: See HPI, Cough Cardiac (ROS): No: Symptoms Reported ABD/GI: Yes: See HPI, Nausea. No: Symptoms Reported : No: Symptoms Reported Musculoskeletal: Yes: See HPI. No: Symptoms Reported, Back Pain Neurological: Yes: Symptoms reported, See HPI, Headache, Ataxia (chronic alcoholism) All Other Systems: Reviewed and Negative *Physical Exam - Vital Signs Last Vital Signs Temp Pulse Resp BP Pulse Ox 98.0 F 93 H 18 124/71 95 07/29/16 16:15 07/29/16 16:15 07/29/16 16:15 07/29/16 16:15 07/29/16 16:15 - Physical Exam General Appearance: Yes: Nourished, Appropriately Dressed, Disheveled, Alcohol on Breath, Intoxicated HEENT: positive: DOUGLAS (with healing ecchymosis around right eye, no crepitus or step-offs ,negative,EOM), TMs Normal. negative: Pharynx Normal Neck: positive: Supple. negative: Tender Respiratory/Chest: positive: Lungs Clear, Normal Breath Sounds. negative: Chest Tender Cardiovascular: positive: Regular Rhythm Gastrointestinal/Abdominal: positive: Normal Bowel Sounds, Soft, Increased Bowel Sounds. negative: Tender, Guarding, Rebound Musculoskeletal: positive: Normal Inspection Extremity: positive: Normal Capillary Refill Integumentary: positive: Normal Color, Pale Neurologic: positive: brush filler hand II-XII NML intact, Fully Oriented, Alert, Normal Mood/ Affect, Normal Response, Motor Strength 5/5 Progress Note - Progress Note Progress Note: Alcohol intoxication, no other injury. Will rest and reevaluate *DC/Admit/Observation/Transfer Diagnosis at time of Disposition: Alcohol intoxication - Discharge Dispostion Condition at time of disposition: Stable Admit: No - Patient Instructions Printed Discharge Instructions: DI for Alcohol Abuse Additional Instructions: Stop drinking
== END 2016-07-30 06:13 | disposition home or self-care (01) ==
LOC: JER 16:11
DX: F10.220 Alcohol dependence with intoxication, uncomplicated (principal)
CPT/HCPCS: 99282-25

== ENCOUNTER 2016-07-31 14:35 | Emergency (ER) | payer OTHER ==
[2016-07-31 14:43] VITALS: PULSE 84; BMI 35.9
--- NOTE | 2016-07-31 16:06 | PDOC ---
History of Present Illness - General History Source: Patient Exam Limitations: Intoxication - History of Present Illness Initial Comments: 07/31/16 16:34 61 yo M with significant past medical history of alcohol abuse who is well known to this ER presents today intoxicated. The patient has no complaints at this time. History is limited secondary to the patient being intoxicated. <Kathie Gatica - Last Filed: 07/31/16 16:35> <Jacob Bertrand - Last Filed: 09/02/16 10:09> - General Chief Complaint: Alcohol intoxication Stated Complaint: Alcohol intoxication Time Seen by Provider: 07/31/16 16:05 Past History <Kathie Gatica - Last Filed: 07/31/16 16:35> - Past Medical History Anemia: No Asthma: No Cancer: Yes (mesothelioma) Cardiac Disorders: No CVA: No COPD: No CHF: No Dementia: No Diabetes: No GI Disorders: No Disorders: No HTN: No Hypercholesterolemia: No Kidney Stones: No Liver Disease: No Psychiatric Problems: Yes (alcoholism) Suicide Attempt (Hx): No Seizures: No Thyroid Disease: No - Surgical History Abdominal Surgery: No Appendectomy: No Cardiac Surgery: No Cholecystectomy: No Lung Surgery: No Neurologic Surgery: No Orthopedic Surgery: No - Family Disease History Family Disease History: CA: Mother - Reproductive History Testicular Surgery: No - Immunization History TDAP Vaccination: Yes Immunization Up to Date: Yes - Psycho/Social/Smoking Cessation Hx Anxiety: No Suicidal Ideation: No Smoking Status: No Smoking History: Never smoked Have you smoked in the past 12 months: No Number of Cigarettes Smoked Daily: 0 Cigars Per Day: 0 Information on smoking cessation initiated: No 'Breaking Loose' booklet given: 07/29/16 Hx Alcohol Use: No Drug/Substance Use Hx: No Substance Use Type: None Hx Substance Use Treatment: Yes ([facility]OX ) <Jacob Bertrand - Last Filed: 09/02/16 10:09> - Past Medical History Allergies/Adverse Reactions: Allergies Allergy/AdvReac Type Severity Reaction Status Date / Time No Known Allergies Allergy Verified 07/31/16 14:38 Home Medications: Ambulatory Orders NK [No Known Home Medication] 07/12/16 Review of Systems - Review of Systems Able to Perform ROS?: No (Unable to attain. ) <Kathie Gatica - Last Filed: 07/31/16 16:35> *Physical Exam - Vital Signs Last Vital Signs Temp Pulse Resp BP Pulse Ox 97.4 F L 84 20 131/97 95 07/31/16 14:39 07/31/16 14:39 07/31/16 14:39 07/31/16 14:39 07/31/16 14:39 - Physical Exam Comments: 07/31/16 16:33 GENERAL: The patient is intoxicated, poor hygeine HEAD: Normocephalic, atraumatic. EYES: Extraocular movements intact, sclera anicteric, conjunctiva clear. ENT: Normal voice. Moist mucous membranes. NECK: Normal range of motion, supple LUNGS: Breath sounds equal, clear to auscultation bilaterally. No wheezes, no rhonchi, no rales. HEART: Regular rate and rhythm ABDOMEN: Soft, nontender EXTREMITIES: Normal range of motion NEUROLOGICAL: No facial assymetry, Normal speech, moving all 4 extremities symmetrically <Kathie Gatica - Last Filed: 07/31/16 16:35> - Vital Signs Last Vital Signs Temp Pulse Resp BP Pulse Ox 97.4 F L 84 20 131/97 95 07/31/16 14:39 07/31/16 14:39 07/31/16 14:39 07/31/16 14:39 07/31/16 14:39 <Jacob Bertrand - Last Filed: 09/02/16 10:09> *DC/Admit/Observation/Transfer - Attestations Scribe Attestion: 07/31/16 16:26 Documentation prepared by Kathie Gatica, acting as associate medical director for Jacob Bertrand DO. <Kathie Gatica - Last Filed: 07/31/16 16:35> - Attestations Physician Attestion: 07/31/16 16:06 I, Dr. Jacob Bertrand, attest that this document has been prepared under my direction and personally reviewed by me in its entirety. I further attest, that it accurately reflects all work, treatment, procedures and medical decision -making performed by me. <Jacob Bertrand - Last Filed: 09/02/16 10:09> Diagnosis at time of Disposition: Alcohol abuse - Discharge Dispostion Disposition: HOME - Patient Instructions Printed Discharge Instructions: DI for Alcohol Abuse
[2016-08-01 06:20] VITALS: BP 131/78; TEMP 97.7
--- NOTE | 2016-08-01 06:32 | PDOC ---
*Physical Exam - Vital Signs Last Vital Signs Temp Pulse Resp BP Pulse Ox 97.7 F 84 20 131/78 97 08/01/16 06:19 08/01/16 06:19 08/01/16 06:19 08/01/16 06:19 08/01/16 06:19 *DC/Admit/Observation/Transfer Diagnosis at time of Disposition: Alcohol abuse - Discharge Dispostion Disposition: HOME Condition at time of disposition: Stable Admit: No - Patient Instructions Printed Discharge Instructions: DI for Alcohol Abuse
== END 2016-08-01 06:41 | disposition home or self-care (01) ==
LOC: JER 14:35
DX: F10.220 Alcohol dependence with intoxication, uncomplicated (principal); C45.9 Mesothelioma, unspecified
CPT/HCPCS: 99283-25

== ENCOUNTER 2016-08-01 14:18 | Emergency (ER) | payer OTHER ==
[2016-08-01 14:26] VITALS: PULSE 90; BMI 35.9
[2016-08-01 18:42] VITALS: BP 105/64; TEMP 97.8
--- NOTE | 2016-08-01 18:45 | PDOC ---
[id number] No Limitations - History of Present Illness Initial Comments: 08/01/16 19:24 Chief complaint: Alcohol intoxication Patient is 61-year-old male with history of alcohol intoxication, abuse who was last here yesterday and left this morning who went out and drank, came back by ambulance due to drinking alcohol. Patient is alert and oriented, in his usual self. pt denies any complaints, asking for food GENERAL/CONSTITUTIONAL: No fever, weakness. dizziness HEAD, EYES, EARS, NOSE AND THROAT: No change in vision. No ear pain or discharge. No sore throat. CARDIOVASCULAR: No chest pain RESPIRATORY: No shortness of breath or cough GASTROINTESTINAL: No pain, nausea, vomiting, diarrhea or constipation GENITOURINARY: No dysuria MUSCULOSKELETAL: No neck or back pain SKIN: No rash NEUROLOGIC: No headache, vertigo, loss of consciousness, or loss of sensation. Normocephalic, alert and oriented 3 Pupils equal and reactive No respiratory distress Moving all extremities without any difficulty <Lauren Mariscal - Last Filed: 08/01/16 22:41> <Richard Ulrich - Last Filed: 08/06/16 10:03> - General Chief Complaint: Alcohol intoxication Stated Complaint: Alcohol intoxication Time Seen by Provider: 08/01/16 14:33 Past History - Past Medical History Anemia: No Asthma: No Cancer: Yes (mesothelioma) Cardiac Disorders: No CVA: No COPD: No CHF: No Dementia: No Diabetes: No GI Disorders: No Disorders: No HTN: No Hypercholesterolemia: No Kidney Stones: No Liver Disease: No Psychiatric Problems: Yes (alcoholism) Suicide Attempt (Hx): No Seizures: No Thyroid Disease: No - Surgical History Abdominal Surgery: No Appendectomy: No Cardiac Surgery: No Cholecystectomy: No Lung Surgery: No Neurologic Surgery: No Orthopedic Surgery: No - Family Disease History Family Disease History: CA: Mother - Reproductive History Testicular Surgery: No - Immunization History TDAP Vaccination: Yes Immunization Up to Date: Yes - Psycho/Social/Smoking Cessation Hx Anxiety: No Suicidal Ideation: No Smoking Status: No Smoking History: Never smoked Have you smoked in the past 12 months: No Number of Cigarettes Smoked Daily: 0 Cigars Per Day: 0 Information on smoking cessation initiated: No 'Breaking Loose' booklet given: 07/29/16 Hx Alcohol Use: No Drug/Substance Use Hx: No Substance Use Type: Alcohol Hx Substance Use Treatment: Yes ([facility] ) <Lauren Mariscal - Last Filed: 08/01/16 22:41> <Richard Ulrich - Last Filed: 08/06/16 10:03> - Past Medical History Allergies/Adverse Reactions: Allergies Allergy/AdvReac Type Severity Reaction Status Date / Time No Known Allergies Allergy Verified 08/01/16 14:19 Home Medications: Ambulatory Orders NK [No Known Home Medication] 07/12/16 *Physical Exam - Vital Signs Last Vital Signs Temp Pulse Resp BP Pulse Ox 97.8 F 90 18 105/64 96 08/01/16 17:30 08/01/16 17:30 08/01/16 17:30 08/01/16 17:30 08/01/16 17:30 <Lauren Mariscal - Last Filed: 08/01/16 22:41> - Vital Signs Last Vital Signs Temp Pulse Resp BP Pulse Ox 97.8 F 90 18 105/64 96 08/01/16 17:30 08/01/16 17:30 08/01/16 17:30 08/01/16 17:30 08/01/16 17:30 <Richard Ulrich - Last Filed: 08/06/16 10:03> Medical Decision Making - Medical Decision Making 08/01/16 22:41 signed out to Trinidad Rehman for sobriety <Lauren Mariscal - Last Filed: 08/01/16 22:41> - Medical Decision Making The patient was seen and evaluated in conjunction with MICHAEL Mariscal under my direct supervision, ancillary studies were reviewed. I independently interviewed and evaluated the patient and I agree with the plan as outlined by MICHAEL Mariscal . <Richard Ulrich - Last Filed: 08/06/16 10:03> *DC/Admit/Observation/Transfer <Lauren Mariscal - Last Filed: 08/01/16 22:41> <Richard Ulrich - Last Filed: 08/06/16 10:03> Diagnosis at time of Disposition: Alcohol intoxication - Discharge Dispostion Disposition: HOME - Patient Instructions Printed Discharge Instructions: DI for Alcohol Abuse
--- NOTE | 2016-08-02 05:49 | PDOC ---
*Physical Exam - Vital Signs Last Vital Signs Temp Pulse Resp BP Pulse Ox 97.8 F 90 18 105/64 96 08/01/16 17:30 08/01/16 17:30 08/01/16 17:30 08/01/16 17:30 08/01/16 17:30 - Physical Exam Comments: 08/02/16 05:48 Sign-out received from outgoing ER provider Loida. Pt interviewed and examined. Ancillary studies reviewed. Awaiting patient sobriety. Patient is sober and ambulatory at this time. Will discharge to home. *DC/Admit/Observation/Transfer Diagnosis at time of Disposition: Alcohol intoxication - Discharge Dispostion Disposition: HOME Condition at time of disposition: Stable Admit: No - Patient Instructions Printed Discharge Instructions: DI for Alcohol Abuse
== END 2016-08-02 06:10 | disposition home or self-care (01) ==
LOC: JER 14:18
DX: F10.120 Alcohol abuse with intoxication, uncomplicated (principal); C45.9 Mesothelioma, unspecified
CPT/HCPCS: 99281-25; 99282-25

== ENCOUNTER 2016-08-02 14:34 | Emergency (ER) | payer OTHER ==
[2016-08-02 14:38] VITALS: BP 105/66; PULSE 84; TEMP 98; BMI 31.5
--- NOTE | 2016-08-05 21:33 | EKG ---
Test Reason : Blood Pressure : / mmHG Vent. Rate : 085 BPM Atrial Rate : 085 BPM P-R Int : 166 ms QRS Dur : 098 ms QT Int : 416 ms P-R-T Axes : 018 -40 024 degrees QTc Int : 495 ms NORMAL SINUS RHYTHM LEFT AXIS DEVIATION ANTEROSEPTAL INFARCT , AGE UNDETERMINED T WAVE ABNORMALITY, CONSIDER ANTERIOR ISCHEMIA ABNORMAL ECG WHEN COMPARED WITH ECG OF 22-JUN-2016 06:15, SEPTAL INFARCT IS NOW PRESENT T WAVE VARIATION Confirmed by KY OVIEDO MD ([id number]) on 08/05/2016 9:32:35 PM Referred By: Confirmed By:KY OVIEDO MD
== END 2016-08-02 19:34 | disposition left against medical advice (07) ==
LOC: JER 14:34
DX: Z53.21 Procedure and treatment not carried out due to patient leaving prior to being seen by health care provider (principal)
CPT/HCPCS: 93005; 93010; 99283-25

== ENCOUNTER 2016-08-02 21:44 | Emergency (ER) | payer OTHER ==
[2016-08-02 22:14] VITALS: TEMP 97.7; BMI 33.0
--- NOTE | 2016-08-03 06:42 | PDOC ---
[id number] No Limitations - History of Present Illness Initial Comments: 08/03/16 06:44 The patient is a 61 year old male with a significant past medical history of alcohol abuse, mesothelioma, and chronic back pain, presenting to the Emergency Department with alcohol intoxication. The patient eloped from hospital yesterday and returned by ambulance. He is complaining of right anterior chest pain that seems to be muscular. He is currently asking for medical detox from alcohol. The patient denies nausea, vomiting, and diarrhea. Patient denies fever, chills , and cough. Patient denies palpitations, or diaphoresis. <April Jenkins - Last Filed: 08/03/16 06:44> <Lorri Kumar - Last Filed: 08/05/16 14:40> - General Chief Complaint: Back Pain Stated Complaint: BACK PAIN Time Seen by Provider: 08/02/16 23:45 Past History <April Jenkins - Last Filed: 08/03/16 06:44> - Past Medical History Anemia: No Asthma: No Cancer: Yes (mesothelioma) Cardiac Disorders: No CVA: No COPD: No CHF: No Dementia: No Diabetes: No GI Disorders: No Disorders: No HTN: No Hypercholesterolemia: No Kidney Stones: No Liver Disease: No Psychiatric Problems: Yes (alcoholism) Suicide Attempt (Hx): No Seizures: No Thyroid Disease: No - Surgical History Abdominal Surgery: No Appendectomy: No Cardiac Surgery: No Cholecystectomy: No Lung Surgery: No Neurologic Surgery: No Orthopedic Surgery: No - Family Disease History Family Disease History: CA: Mother - Reproductive History Testicular Surgery: No - Immunization History TDAP Vaccination: Yes Immunization Up to Date: Yes - Psycho/Social/Smoking Cessation Hx Anxiety: No Suicidal Ideation: No Smoking Status: No Smoking History: Current some day smoker Have you smoked in the past 12 months: No Number of Cigarettes Smoked Daily: 0 Cigars Per Day: 0 Information on smoking cessation initiated: No 'Breaking Loose' booklet given: 07/29/16 Hx Alcohol Use: Yes Drug/Substance Use Hx: No Substance Use Type: None Hx Substance Use Treatment: Yes ([facility]OX ) <Lorri Kumar - Last Filed: 08/05/16 14:40> - Past Medical History Allergies/Adverse Reactions: Allergies Allergy/AdvReac Type Severity Reaction Status Date / Time No Known Allergies Allergy Verified 08/02/16 22:12 Home Medications: Ambulatory Orders NK [No Known Home Medication] 07/12/16 Review of Systems - Review of Systems Able to Perform ROS?: Yes Comments:: 08/03/16 06:45 GENERAL/CONSTITUTIONAL: + intoxicated. No fever or chills. No weakness. HEAD, EYES, EARS, NOSE AND THROAT: No change in vision. No ear pain or discharge. No sore throat. CARDIOVASCULAR: No chest pain or shortness of breath. RESPIRATORY: No cough, wheezing, or hemoptysis. GASTROINTESTINAL: No nausea, vomiting, diarrhea or constipation. GENITOURINARY: No dysuria, frequency, or change in urination. MUSCULOSKELETAL: + right anterior chest pain. No joint swelling or pain. No neck or back pain. SKIN: No rash NEUROLOGIC: No headache, vertigo, loss of consciousness, or change in strength/ sensation. ENDOCRINE: No increased thirst. No abnormal weight change. HEMATOLOGIC/LYMPHATIC: No anemia, easy bleeding, or history of blood clots. ALLERGIC/IMMUNOLOGIC: No hives or skin allergy. <April Jenkins - Last Filed: 08/03/16 06:44> *Physical Exam - Vital Signs Last Vital Signs Temp Pulse Resp BP Pulse Ox 97.7 F 82 18 101/50 94 L 08/02/16 22:13 08/02/16 22:13 08/02/16 22:13 08/02/16 22:13 08/02/16 22:13 - Physical Exam Comments: 08/03/16 06:46 GENERAL: Awake, intoxicated, alert, and fully oriented, in no acute distress HEAD: No signs of trauma EYES: PERRLA, EOMI, sclera anicteric, conjunctiva clear ENT: Auricles normal inspection, hearing grossly normal, nares patent, oropharynx clear without exudates. Moist mucosa NECK: Normal ROM, supple, no lymphadenopathy, JVD, or masses LUNGS: Breath sounds equal, clear to auscultation bilaterally. No wheezes, and no crackles HEART: Regular rate and rhythm, normal S1 and S2, no murmurs, rubs or gallops ABDOMEN: Soft, nontender, normoactive bowel sounds. Nontender ribs. No guarding , no rebound. No masses EXTREMITIES: Normal range of motion, no edema. No clubbing or cyanosis. No cords, erythema, or tenderness NEUROLOGICAL: Cranial nerves II through XII grossly intact. Normal speech, normal gait SKIN: Warm, Dry, normal turgor, no rashes or lesions noted. <April Jenkins - Last Filed: 08/03/16 06:44> - Vital Signs Last Vital Signs Temp Pulse Resp BP Pulse Ox 97.7 F 82 18 101/50 94 L 08/02/16 22:13 08/02/16 22:13 08/02/16 22:13 08/02/16 22:13 08/02/16 22:13 <Lorri Kumar - Last Filed: 08/05/16 14:40> Medical Decision Making - Medical Decision Making 08/05/16 14:39 Pt comes with alcohol intox. He tells me that he wants to quit and he wants to go to detox. He was last indetox over a month ago, and he is willing to go to detox. Detox accepted him, and he will be evaluated for admission into the detox program. <Lorri Kumar - Last Filed: 08/05/16 14:40> *DC/Admit/Observation/Transfer - Attestations Scribe Attestion: 08/03/16 06:47 Documentation prepared by April Jenkins, acting as remote medical coder for Lorri Kumar MD. <April Jenkins - Last Filed: 08/03/16 06:44> <Lorri Kumar - Last Filed: 08/05/16 14:40> Diagnosis at time of Disposition: Alcohol intoxication, Alcohol abuse - Discharge Dispostion Disposition: I.P. ALCOHOL/SUBS ABUSE REHAB Condition at time of disposition: Stable - Patient Instructions Printed Discharge Instructions: DI for Alcohol Abuse
[2016-08-03 06:48] VITALS: BP 114/80; PULSE 84
== END 2016-08-03 06:45 | disposition other institution (70) ==
LOC: JER 21:44
DX: F10.220 Alcohol dependence with intoxication, uncomplicated (principal); C45.9 Mesothelioma, unspecified
CPT/HCPCS: 99281-25

== ENCOUNTER 2016-08-03 15:24 | Emergency (ER) | payer OTHER ==
[2016-08-03 15:44] VITALS: BP 91/51; PULSE 78; TEMP 98; BMI 38.7
--- NOTE | 2016-08-03 15:57 | PDOC ---
History of Present Illness - General Chief Complaint: Alcohol intoxication Stated Complaint: INTOX Time Seen by Provider: 08/03/16 15:45 History Source: Patient Exam Limitations: Intoxication - History of Present Illness Initial Comments: CHIEF COMPLAINT: 61 y/o afebrile male, with PMH ETOH abuse, mesothelioma, chronic back pain, here for alcohol intoxication. HISTORY OF PRESENT ILLNESS: The patient is well known to this ER for multiple visits for ETOH intoxication. He is denying all complaints including fever, chills, vomiting, diarrhea, pain. Vital signs on arrival are within normal limits. REVIEW OF SYSTEMS: GENERAL/CONSTITUTIONAL: No fever/chills. No weakness. No weight change. + intoxicated HEAD, EYES, EARS, NOSE AND THROAT: No change in vision. No ear pain or discharge. No sore throat. CARDIOVASCULAR: No chest pain or shortness of breath. RESPIRATORY: No cough, wheezing, or hemoptysis. GASTROINTESTINAL: No abd pain, nausea, vomiting, diarrhea. GENITOURINARY: No dysuria, frequency, or change in urination. MUSCULOSKELETAL: No joint or muscle swelling or pain. No neck or back pain. SKIN: No rash or easy bruising. NEUROLOGIC: No headache, vertigo, loss of consciousness, or loss of sensation. PHYSICAL EXAM: GENERAL: The patient is asleep but easily arousable. He smells of alcohol. HEAD: Normal with no signs of trauma. ENT: Pupils equal, round and reactive to light, extraocular movements intact, sclera anicteric, conjunctiva clear. Neck supple. LUNGS: Clear to auscultation bilaterally. Normal excursion. No respiratory distress or use of accessory muscles. CV: RRR, S1/S2, no MRG. Cap refill < 2 sec. ABDOMEN: Soft, non-distended, non-tender even to deep palpation, no hepatomegaly or splenomegaly, no masses. EXTREMITIES: Normal range of motion, no edema. NEUROLOGICAL: Normal speech, normal gait. CN II-XII grossly intact. PSYCH: Normal mood, normal affect. SKIN: Warm, dry, normal turgor, no rashes or lesions noted. Past History - Past Medical History Allergies/Adverse Reactions: Allergies Allergy/AdvReac Type Severity Reaction Status Date / Time No Known Allergies Allergy Verified 08/03/16 15:42 Home Medications: Ambulatory Orders NK [No Known Home Medication] 07/12/16 Anemia: No Asthma: No Cancer: Yes (mesothelioma) Cardiac Disorders: No CVA: No COPD: No CHF: No Dementia: No Diabetes: No GI Disorders: No Disorders: No HTN: No Hypercholesterolemia: No Kidney Stones: No Liver Disease: No Psychiatric Problems: Yes (alcoholism) Suicide Attempt (Hx): No Seizures: No Thyroid Disease: No - Surgical History Abdominal Surgery: No Appendectomy: No Cardiac Surgery: No Cholecystectomy: No Lung Surgery: No Neurologic Surgery: No Orthopedic Surgery: No - Family Disease History Family Disease History: CA: Mother - Reproductive History Testicular Surgery: No - Immunization History TDAP Vaccination: Yes Immunization Up to Date: Yes - Psycho/Social/Smoking Cessation Hx Anxiety: No Suicidal Ideation: No Smoking Status: No Smoking History: Current some day smoker Have you smoked in the past 12 months: No Number of Cigarettes Smoked Daily: 0 Cigars Per Day: 0 Information on smoking cessation initiated: No 'Breaking Loose' booklet given: 07/29/16 Hx Alcohol Use: Yes Drug/Substance Use Hx: No Substance Use Type: None Hx Substance Use Treatment: Yes ([facility]OX ) *Physical Exam - Vital Signs Last Vital Signs Temp Pulse Resp BP Pulse Ox 98 F 78 18 91/51 98 08/03/16 15:38 08/03/16 15:38 08/03/16 15:38 08/03/16 15:38 08/03/16 15:38 Medical Decision Making - Medical Decision Making A/P: 61 y/o intoxicated male here for intoxication. Will let him sleep and will reassess when he adrian up. I am signing this patient out to my colleague: MICHAEL Morales In brief, this patient is being seen in the ED for a chief complaint of: alcohol intoxication I have completed the initial assessment interview note and have ordered: nothing I have reviewed the following results: none Pending results are: none Plan for disposition is as follows: Reassess once sober *DC/Admit/Observation/Transfer Diagnosis at time of Disposition: Alcohol abuse, Alcohol intoxication
[2016-08-04] MEDS ORDERED: MAG HYDROX/AL HYDROX/SIMETH 30 ML UNIT-DOSE CUP PO ONE (07:04)
[2016-08-04] MEDS ORDERED: chlordiazePOXIDE HCL 25 MG CAPSULE PO ONE (07:05)
--- NOTE | 2016-08-04 07:07 | PDOC ---
*Physical Exam - Vital Signs Last Vital Signs Temp Pulse Resp BP Pulse Ox 98 F 78 18 91/51 98 08/03/16 15:38 08/03/16 15:38 08/03/16 15:38 08/03/16 15:38 08/03/16 15:38 Medical Decision Making - Medical Decision Making 08/04/16 Patient is alert and oriented x 3 with steady gait. he is c/o epigastric pain most likely gastritis given Maalox. Patient is slightly tremulous will give Librium 50 mg by mouth. Patient is stable discharge *DC/Admit/Observation/Transfer Diagnosis at time of Disposition: Alcohol abuse, Alcohol intoxication - Discharge Dispostion Disposition: HOME Condition at time of disposition: Stable - Patient Instructions Printed Discharge Instructions: DI for Alcohol Abuse Additional Instructions: Your Discharge Instructions: You must call primary care physician within 24 hours to arrange follow-up. Return to the Emergency Department with any new, persistent or worsening symptoms, for fever, chills, SOB, dizziness or any other concerning changes that may occur.
[2016-08-04] MEDS ORDERED: MAG HYDROX/AL HYDROX/SIMETH 30 ML UNIT-DOSE CUP ONE (07:12)
[2016-08-04] MEDS ORDERED: chlordiazePOXIDE HCL 25 MG CAPSULE ONE (07:12)
== END 2016-08-04 07:31 | disposition home or self-care (01) ==
LOC: JER 15:24
DX: F10.220 Alcohol dependence with intoxication, uncomplicated (principal); Z86.018 Personal history of other benign neoplasm
CPT/HCPCS: 99283-25

== ENCOUNTER 2016-08-06 11:13 | Emergency (ER) | payer OTHER ==
[2016-08-06 11:29] VITALS: BMI 32.3
--- NOTE | 2016-08-06 13:18 | PDOC ---
History of Present Illness - General History Source: Patient Exam Limitations: Intoxication - History of Present Illness Initial Comments: CHIEF COMPLAINT: 61 y/o afebrile male, with PMH ETOH abuse, mesothelioma, chronic back pain, here for alcohol intoxication. HISTORY OF PRESENT ILLNESS: The patient is well known to this ER for multiple visits for ETOH intoxication. He is denying all complaints including fever, chills, vomiting, diarrhea, pain. Vital signs on arrival are notable for O2 sat of 94% on RA REVIEW OF SYSTEMS: GENERAL/CONSTITUTIONAL: No fever/chills. No weakness. No weight change. + intoxicated HEAD, EYES, EARS, NOSE AND THROAT: No change in vision. No ear pain or discharge. No sore throat. CARDIOVASCULAR: No chest pain or shortness of breath. RESPIRATORY: No cough, wheezing, or hemoptysis. GASTROINTESTINAL: No abd pain, nausea, vomiting, diarrhea. GENITOURINARY: No dysuria, frequency, or change in urination. MUSCULOSKELETAL: No joint or muscle swelling or pain. No neck or back pain. SKIN: No rash or easy bruising. NEUROLOGIC: No headache, vertigo, loss of consciousness, or loss of sensation. PHYSICAL EXAM: GENERAL: The patient is asleep but easily arousable. He smells of alcohol. HEAD: Normal with no signs of trauma. ENT: Pupils equal, round and reactive to light, extraocular movements intact, sclera anicteric, conjunctiva clear. Neck supple. LUNGS: Clear to auscultation bilaterally. Normal excursion. No respiratory distress or use of accessory muscles. CV: RRR, S1/S2, no MRG. Cap refill < 2 sec. ABDOMEN: Soft, non-distended, non-tender even to deep palpation, no hepatomegaly or splenomegaly, no masses. EXTREMITIES: Normal range of motion, no edema. NEUROLOGICAL: Normal speech, normal gait. CN II-XII grossly intact. PSYCH: Normal mood, normal affect. SKIN: Warm, dry, normal turgor, no rashes or lesions noted. 08/06/16 13:19 08/06/16 13:20 <Lalitha Bucio - Last Filed: 08/06/16 17:54> <Richard Ulrich - Last Filed: 08/08/16 11:26> - General Chief Complaint: Back Pain Stated Complaint: BACK PAIN Time Seen by Provider: 08/06/16 12:34 Past History - Past Medical History Anemia: No Asthma: No Cancer: Yes (mesothelioma) Cardiac Disorders: No CVA: No COPD: No CHF: No Dementia: No Diabetes: No GI Disorders: No Disorders: No HTN: No Hypercholesterolemia: No Kidney Stones: No Liver Disease: No Psychiatric Problems: Yes (alcoholism) Suicide Attempt (Hx): No Seizures: No Thyroid Disease: No - Surgical History Abdominal Surgery: No Appendectomy: No Cardiac Surgery: No Cholecystectomy: No Lung Surgery: No Neurologic Surgery: No Orthopedic Surgery: No - Family Disease History Family Disease History: CA: Mother - Reproductive History Testicular Surgery: No - Immunization History TDAP Vaccination: Yes Immunization Up to Date: Yes - Psycho/Social/Smoking Cessation Hx Anxiety: No Suicidal Ideation: No Smoking Status: No Smoking History: Current some day smoker Have you smoked in the past 12 months: No Number of Cigarettes Smoked Daily: 4 Cigars Per Day: 0 Information on smoking cessation initiated: Yes 'Breaking Loose' booklet given: 07/29/16 Hx Alcohol Use: Yes Drug/Substance Use Hx: No Substance Use Type: None Hx Substance Use Treatment: Yes (DETOX ) <Lalitha Bucio - Last Filed: 08/06/16 17:54> <Richard Ulrich - Last Filed: 08/08/16 11:26> - Past Medical History Allergies/Adverse Reactions: Allergies Allergy/AdvReac Type Severity Reaction Status Date / Time No Known Allergies Allergy Verified 08/06/16 11:21 Home Medications: Ambulatory Orders NK [No Known Home Medication] 07/12/16 *Physical Exam - Vital Signs Last Vital Signs Temp Pulse Resp BP Pulse Ox 97.5 F L 86 16 115/77 94 L 08/06/16 11:22 08/06/16 11:22 08/06/16 11:22 08/06/16 11:22 08/06/16 11:22 <Lalitha Bucio - Last Filed: 08/06/16 17:54> - Vital Signs Last Vital Signs Temp Pulse Resp BP Pulse Ox 98 F 95 H 18 97/59 98 08/06/16 17:30 08/06/16 17:30 08/06/16 17:30 08/06/16 17:30 08/06/16 17:30 <Richard Ulrich - Last Filed: 08/08/16 11:26> Medical Decision Making - Medical Decision Making A/P: 61 y/o intoxicated male here for intoxication. Will let him sleep and will reassess when he adrian up. The patient woke up to eat and sandwich and continued to deny all complaints. I am signing this patient out to my colleague: MICHAEL Rehman In brief, this patient is being seen in the ED for a chief complaint of: alcohol intoxication I have completed the initial assessment interview note and have ordered: nothing I have reviewed the following results: none Pending results are: none Plan for disposition is as follows: Reassess once sober and discharge. <Lalitha Bucio - Last Filed: 08/06/16 17:54> - Medical Decision Making 08/08/16 11:26 The patient was seen and evaluated in conjunction with APPLE Bucio under my direct supervision, ancillary studies were reviewed. I independently interviewed and evaluated the patient and I agree with the plan as outlined by APPLE Bucio . <Richard Ulrich - Last Filed: 08/08/16 11:26> *DC/Admit/Observation/Transfer <Lalitha Bucio - Last Filed: 08/06/16 17:54> <Richard Ulrich - Last Filed: 08/08/16 11:26> Diagnosis at time of Disposition: Alcohol intoxication - Discharge Dispostion Disposition: HOME Condition at time of disposition: Improved - Patient Instructions Printed Discharge Instructions: DI for Alcohol Abuse
[2016-08-06 17:30] VITALS: BP 97/59; PULSE 95; TEMP 98
--- NOTE | 2016-08-07 06:36 | PDOC ---
*Physical Exam - Vital Signs Last Vital Signs Temp Pulse Resp BP Pulse Ox 98 F 95 H 18 97/59 98 08/06/16 17:30 08/06/16 17:30 08/06/16 17:30 08/06/16 17:30 08/06/16 17:30 - Physical Exam Comments: 08/06/16 19:35 Sign-out received from outgoing ER provider Rupinder. Pt interviewed and examined. Ancillary studies reviewed. Awaiting patient sobriety. 08/07/16 06:05 am Patient awake, ambulating appropriately. Will discharge. *DC/Admit/Observation/Transfer Diagnosis at time of Disposition: Alcohol intoxication - Discharge Dispostion Condition at time of disposition: Improved - Referrals - Patient Instructions Printed Discharge Instructions: DI for Alcohol Abuse - Post Discharge Activity
== END 2016-08-07 06:45 | disposition home or self-care (01) ==
LOC: JER 11:13
DX: F10.220 Alcohol dependence with intoxication, uncomplicated (principal)
CPT/HCPCS: 99281-25

== ENCOUNTER 2016-08-07 16:44 | Emergency (ER) | payer OTHER ==
[2016-08-07 16:53] VITALS: BP 95/55; PULSE 82; TEMP 97.5; BMI 34.4
--- NOTE | 2016-08-07 18:13 | PDOC ---
[id number] 4d INTOX Time Seen by Provider: 08/07/16 17:16 History Source: Patient Exam Limitations: No Limitations - History of Present Illness Initial Comments: 08/07/16 18:06 61-year-old male brought in by EMS due [place] Patient states unsure who called police/ambulance and is requesting to sleep and eat with no complaints of chest pain, headache, back pain although he smells like [place] presently. Patient is well-known to this ER secondary to alcohol use but denies any complaints now. Timing/Duration: unsure Severity: mild Associated Symptoms: reports: denies symptoms Past History - Past Medical History Allergies/Adverse Reactions: Allergies Allergy/AdvReac Type Severity Reaction Status Date / Time No Known Allergies Allergy Verified 08/07/16 16:52 Home Medications: Ambulatory Orders NK [No Known Home Medication] 07/12/16 Anemia: No Asthma: No Cancer: Yes (mesothelioma) Cardiac Disorders: No CVA: No COPD: No CHF: No Dementia: No Diabetes: No GI Disorders: No Disorders: No HTN: No Hypercholesterolemia: No Kidney Stones: No Liver Disease: No Psychiatric Problems: Yes (alcoholism) Suicide Attempt (Hx): No Seizures: No Thyroid Disease: No - Surgical History Abdominal Surgery: No Appendectomy: No Cardiac Surgery: No Cholecystectomy: No Lung Surgery: No Neurologic Surgery: No Orthopedic Surgery: No - Family Disease History Family Disease History: CA: Mother - Reproductive History Testicular Surgery: No - Immunization History TDAP Vaccination: Yes Immunization Up to Date: Yes - Psycho/Social/Smoking Cessation Hx Anxiety: No Suicidal Ideation: No Smoking Status: No Smoking History: Never smoked Have you smoked in the past 12 months: No Number of Cigarettes Smoked Daily: 4 Cigars Per Day: 0 'Breaking Loose' booklet given: 07/29/16 Hx Alcohol Use: Yes Drug/Substance Use Hx: No Substance Use Type: None Hx Substance Use Treatment: Yes (DETOX ) Patient Lives Alone: Yes Lives with/in: lives alone Review of Systems - Review of Systems Able to Perform ROS?: Yes Constitutional: No: Symptoms Reported HEENTM: No: Symptoms Reported Respiratory: No: Symptoms reported Cardiac (ROS): No: Symptoms Reported ABD/GI: No: Symptoms Reported Musculoskeletal: No: Symptoms Reported Integumentary: No: Rash Neurological: No: Headache *Physical Exam - Vital Signs Last Vital Signs Temp Pulse Resp BP Pulse Ox 97.5 F L 82 18 95/55 100 08/07/16 16:52 08/07/16 16:52 08/07/16 16:52 08/07/16 16:52 08/07/16 16:52 - Physical Exam General Appearance: Yes: Nourished, Appropriately Dressed, Intoxicated. No: Disheveled HEENT: positive: EOMI, DOUGLAS, Pharynx Normal (dry). negative: Pale Conjunctivae Neck: positive: Supple Respiratory/Chest: positive: Lungs Clear, Normal Breath Sounds. negative: Respiratory Distress, Accessory Muscle Use Cardiovascular: positive: Regular Rhythm, Regular Rate. negative: Murmur Gastrointestinal/Abdominal: positive: Soft. negative: Tenderness Extremity: positive: Normal Capillary Refill. negative: Pedal Edema Integumentary: positive: Normal Color, Dry, Warm Neurologic: positive: Normal Mood/Affect (but intoxicated), Motor Strength 5/5 Medical Decision Making - Medical Decision Making 08/07/16 18:18 Patient here for on-call intoxication in a public place. Patient arrives asymptomatic with normal vital signs. Patient requesting to eat and sleep. Patient offered a turkey sandwich with water but requesting a dinner tray. Patient otherwise with normal clinical exam and will continue to observe. *DC/Admit/Observation/Transfer Diagnosis at time of Disposition: Alcohol dependence - Discharge Dispostion Disposition: HOME
--- NOTE | 2016-08-08 06:34 | PDOC ---
[id number] 100 08/07/16 16:52 08/07/16 16:52 08/07/16 16:52 08/07/16 16:52 08/07/16 16:52 - Physical Exam Comments: 08/07/16 19:15 Sign-out received from outgoing ER provider Cristine. Pt interviewed and examined. Ancillary studies reviewed. Awaiting patient sobriety. Will reassess prior to discharge. 08/08/16 06:34 Patient awake and ambulatory with stable gait. Will discharge. *DC/Admit/Observation/Transfer Diagnosis at time of Disposition: Alcohol dependence - Discharge Dispostion Disposition: HOME
== END 2016-08-08 07:01 | disposition home or self-care (01) ==
LOC: JER 16:44
DX: F10.220 Alcohol dependence with intoxication, uncomplicated (principal)
CPT/HCPCS: 99282-25

== ENCOUNTER 2016-08-08 13:35 | Emergency (ER) | payer OTHER ==
[2016-08-08 13:59] VITALS: TEMP 98.4; BMI 33.7
--- NOTE | 2016-08-08 14:03 | PDOC ---
History of Present Illness - General History Source: Patient Exam Limitations: Intoxication - History of Present Illness Initial Comments: CHIEF COMPLAINT: 61 y/o afebrile male, with PMH ETOH abuse, mesothelioma, chronic back pain, here for alcohol intoxication. HISTORY OF PRESENT ILLNESS: The patient is well known to this ER for multiple visits for ETOH intoxication. He is denying all complaints including fever, chills, vomiting, diarrhea, pain. Vital signs on arrival are notable for O2 sat of 94% on RA REVIEW OF SYSTEMS: GENERAL/CONSTITUTIONAL: No fever/chills. No weakness. No weight change. + intoxicated HEAD, EYES, EARS, NOSE AND THROAT: No change in vision. No ear pain or discharge. No sore throat. CARDIOVASCULAR: No chest pain or shortness of breath. RESPIRATORY: No cough, wheezing, or hemoptysis. GASTROINTESTINAL: No abd pain, nausea, vomiting, diarrhea. GENITOURINARY: No dysuria, frequency, or change in urination. MUSCULOSKELETAL: No joint or muscle swelling or pain. No neck or back pain. SKIN: No rash or easy bruising. NEUROLOGIC: No headache, vertigo, loss of consciousness, or loss of sensation. PHYSICAL EXAM: GENERAL: The patient is asleep but easily arousable. He smells of alcohol. HEAD: Normal with no signs of trauma. ENT: Pupils equal, round and reactive to light, extraocular movements intact, sclera anicteric, conjunctiva clear. Neck supple. LUNGS: Clear to auscultation bilaterally. Normal excursion. No respiratory distress or use of accessory muscles. CV: RRR, S1/S2, no MRG. Cap refill < 2 sec. ABDOMEN: Soft, non-distended, non-tender even to deep palpation, no hepatomegaly or splenomegaly, no masses. EXTREMITIES: Normal range of motion, no edema. NEUROLOGICAL: Normal speech, normal gait. CN II-XII grossly intact. PSYCH: Normal mood, normal affect. SKIN: Warm, dry, normal turgor, no rashes or lesions noted. <Lalitha Bucio - Last Filed: 08/08/16 14:06> <Richard Ulrich - Last Filed: 08/11/16 07:59> - General Chief Complaint: Alcohol intoxication Stated Complaint: INTOX Time Seen by Provider: 08/08/16 13:45 Past History - Past Medical History Anemia: No Asthma: No Cancer: Yes (mesothelioma) Cardiac Disorders: No CVA: No COPD: No CHF: No Dementia: No Diabetes: No GI Disorders: No Disorders: No HTN: No Hypercholesterolemia: No Kidney Stones: No Liver Disease: No Psychiatric Problems: Yes (alcoholism) Suicide Attempt (Hx): No Seizures: No Thyroid Disease: No - Surgical History Abdominal Surgery: No Appendectomy: No Cardiac Surgery: No Cholecystectomy: No Lung Surgery: No Neurologic Surgery: No Orthopedic Surgery: No - Family Disease History Family Disease History: CA: Mother - Reproductive History Testicular Surgery: No - Immunization History TDAP Vaccination: Yes Immunization Up to Date: Yes - Psycho/Social/Smoking Cessation Hx Anxiety: No Suicidal Ideation: No Smoking Status: No Smoking History: Never smoked Have you smoked in the past 12 months: No Number of Cigarettes Smoked Daily: 4 Cigars Per Day: 0 Information on smoking cessation initiated: No 'Breaking Loose' booklet given: 07/29/16 Hx Alcohol Use: No Drug/Substance Use Hx: No Substance Use Type: Alcohol Hx Substance Use Treatment: Yes (DETOX ) <Lalitha Bucio - Last Filed: 08/08/16 14:06> <Richard Ulrich - Last Filed: 08/11/16 07:59> - Past Medical History Allergies/Adverse Reactions: Allergies Allergy/AdvReac Type Severity Reaction Status Date / Time No Known Allergies Allergy Verified 08/07/16 16:52 Home Medications: Ambulatory Orders NK [No Known Home Medication] 07/12/16 *Physical Exam - Vital Signs Last Vital Signs Temp Pulse Resp BP Pulse Ox 98.4 F 92 H 20 110/65 94 L 08/08/16 13:57 08/08/16 13:57 08/08/16 13:57 08/08/16 13:57 08/08/16 13:57 <Lalitha Bucio - Last Filed: 08/08/16 14:06> - Vital Signs Last Vital Signs Temp Pulse Resp BP Pulse Ox 98.4 F 88 19 157/92 95 08/08/16 13:57 08/08/16 23:39 08/08/16 23:39 08/08/16 23:39 08/08/16 23:39 <Richard Ulrich - Last Filed: 08/11/16 07:59> Medical Decision Making - Medical Decision Making A/P: 61 y/o intoxicated male here for intoxication. Will let him sleep and will reassess when he adrian up. The patient woke up to eat and sandwich and continued to deny all complaints. I am signing this patient out to my colleague: MICHAEL Rehman In brief, this patient is being seen in the ED for a chief complaint of: alcohol intoxication I have completed the initial assessment interview note and have ordered: nothing I have reviewed the following results: none Pending results are: none Plan for disposition is as follows: Reassess once sober and discharge. <Lalitha Bucio - Last Filed: 08/08/16 14:06> - Medical Decision Making The patient was seen and evaluated in conjunction with APPLE Bucio under my direct supervision, ancillary studies were reviewed. I independently interviewed and evaluated the patient and I agree with the plan as outlined by APPLE Bucio . <Richard Ulrich - Last Filed: 08/11/16 07:59> *DC/Admit/Observation/Transfer <Lalitha Bucio - Last Filed: 08/08/16 14:06> <Richard Ulrich - Last Filed: 08/11/16 07:59> Diagnosis at time of Disposition: Alcohol intoxication - Discharge Dispostion Disposition: HOME
--- NOTE | 2016-08-08 19:38 | PDOC ---
*Physical Exam - Vital Signs Last Vital Signs Temp Pulse Resp BP Pulse Ox 98.4 F 92 H 20 110/65 94 L 08/08/16 13:57 08/08/16 13:57 08/08/16 13:57 08/08/16 13:57 08/08/16 13:57 - Physical Exam Comments: 08/08/16 19:37 Sign-out received from outgoing ER provider Rupinder. Pt interviewed and examined. Ancillary studies reviewed. Patient has no complaints, has eaten a meal in the ER and is sleeping. Awaiting sobriety prior to discharge. 08/09/16 06:38 Patient awake and ambulatory with steady gait. No complaints. Will discharge. *DC/Admit/Observation/Transfer Diagnosis at time of Disposition: Alcohol intoxication
[2016-08-08 23:45] VITALS: BP 157/92; PULSE 88
== END 2016-08-09 06:59 | disposition home or self-care (01) ==
LOC: JER 13:35
DX: F10.220 Alcohol dependence with intoxication, uncomplicated (principal); C45.9 Mesothelioma, unspecified
CPT/HCPCS: 99282-25

== ENCOUNTER 2016-08-09 22:04 | Emergency (ER) | payer OTHER ==
--- NOTE | 2016-08-09 22:26 | PDOC ---
History of Present Illness - General History Source: Patient Exam Limitations: Intoxication - History of Present Illness Initial Comments: 08/10/16 06:22 The patient is a 61-year-old male with a significant past medical history of ETOH abuse and chronic back pain, and presents to the emergency department via EMS for alcohol intoxication. The patient is a frequent patron of this ER with multiple visits for ETOH intoxication. The patient denies chest pain, shortness of breath, headache and dizziness. The patient denies fever, chills, nausea, vomit, diarrhea and constipation. The patient denies dysuria, frequency, urgency and hematuria. Allergies: NKDA Social History: ETOH abuse <Joelle Smalls - Last Filed: 08/10/16 06:20> <Lorri Kumar - Last Filed: 08/10/16 06:51> - General Stated Complaint: INTOXICATED Time Seen by Provider: 08/09/16 22:25 Past History <Joelle Smalls - Last Filed: 08/10/16 06:20> - Past Medical History Anemia: No Asthma: No Cancer: Yes (mesothelioma) Cardiac Disorders: No CVA: No COPD: No CHF: No Dementia: No Diabetes: No GI Disorders: No Disorders: No HTN: No Hypercholesterolemia: No Kidney Stones: No Liver Disease: No Psychiatric Problems: Yes (alcoholism) Suicide Attempt (Hx): No Seizures: No Thyroid Disease: No - Surgical History Abdominal Surgery: No Appendectomy: No Cardiac Surgery: No Cholecystectomy: No Lung Surgery: No Neurologic Surgery: No Orthopedic Surgery: No - Family Disease History Family Disease History: CA: Mother - Reproductive History Testicular Surgery: No - Immunization History TDAP Vaccination: Yes Immunization Up to Date: Yes - Psycho/Social/Smoking Cessation Hx Anxiety: No Suicidal Ideation: No Smoking Status: No Smoking History: Never smoked Have you smoked in the past 12 months: No Number of Cigarettes Smoked Daily: 4 Cigars Per Day: 0 'Breaking Loose' booklet given: 07/29/16 Hx Alcohol Use: No Drug/Substance Use Hx: No Substance Use Type: Alcohol Hx Substance Use Treatment: Yes (DETOX ) <Lorri Kumar - Last Filed: 08/10/16 06:51> - Past Medical History Allergies/Adverse Reactions: Allergies Allergy/AdvReac Type Severity Reaction Status Date / Time No Known Allergies Allergy Verified 08/09/16 22:43 Home Medications: Ambulatory Orders NK [No Known Home Medication] 07/12/16 Review of Systems - Review of Systems Able to Perform ROS?: No (intoxication) <Joelle Smalls - Last Filed: 08/10/16 06:20> *Physical Exam - Vital Signs Last Vital Signs Temp Pulse Resp BP Pulse Ox 96.8 F L 79 16 152/79 97 08/09/16 22:28 08/09/16 22:28 08/09/16 22:28 08/09/16 22:28 08/09/16 22:28 - Physical Exam Comments: 08/10/16 06:22 GENERAL: Well-nourished. No apparent distress. (+) Patient appears somnolent. HEENT: Normocephalic, atraumatic. PERRL, EOM intact. CARDIOVASCULAR: Normal S1, S2. Regular rate and rhythm. PULMONARY: Clear to auscultation bilaterally. ABDOMEN: Soft, non-distended, non-tender. EXTREMITIES: Normal ROM in all four extremities. No gross deformities. SKIN: Warm, dry. No rash NEUROLOGICAL: No focal neurological deficits. <Joelle Smalls - Last Filed: 08/10/16 06:20> Medical Decision Making - Medical Decision Making 08/10/16 06:46 Pt returns with alcohol intox. He has been sleeping comfortably all night. He will be signed out to the day team. <Lorri Kumar - Last Filed: 08/10/16 06:51> *DC/Admit/Observation/Transfer - Attestations Scribe Attestion: 08/10/16 06:23 Documentation prepared by Joelle Smalls, acting as medical device engineer for Lorri Kumar MD. <Joelle Smalls - Last Filed: 08/10/16 06:20> - Discharge Dispostion Admit: No <Lorri Kumar - Last Filed: 08/10/16 06:51> Diagnosis at time of Disposition: Alcohol abuse - Discharge Dispostion Disposition: HOME Condition at time of disposition: Fair - Referrals Referrals: STAFF,NOT ON [Primary Care Provider] -
[2016-08-09 22:43] VITALS: BP 152/79; PULSE 79; TEMP 96.8; BMI 32.3
== END 2016-08-10 07:05 | disposition home or self-care (01) ==
LOC: SUPCPDRO 22:04 → JER 22:04
DX: F10.220 Alcohol dependence with intoxication, uncomplicated (principal); C45.9 Mesothelioma, unspecified
CPT/HCPCS: 99281-25

== ENCOUNTER 2016-08-10 17:45 | Emergency (ER) | payer OTHER ==
[2016-08-10 18:03] VITALS: BMI 34.4
--- NOTE | 2016-08-10 20:49 | PDOC ---
History of Present Illness - History of Present Illness Initial Comments: 08/10/16 20:51 The patient is a 61 year old male, with a significant past medical history of ETOH abuse and chronic back pain, who presents to the emergency department via EMS for alcohol intoxiation. The patient is well-known to the ED with multipe visits for ETOH intoxication. He denies chest pain, shortness of breath, headache and dizziness. He denies fever, chills, nausea, vomit, diarrhea and constipation. He denies dysuria, frequency, urgency and hematuria. Allergies: NKDA Social Hx: ETOH abuse <Ernestine Snyder - Last Filed: 08/10/16 20:51> <Suraj Santa - Last Filed: 08/10/16 21:59> - General Chief Complaint: Alcohol intoxication Stated Complaint: INTOX Past History <Ernestine Snyder - Last Filed: 08/10/16 20:51> - Past Medical History Anemia: No Asthma: No Cancer: Yes (mesothelioma) Cardiac Disorders: No CVA: No COPD: No CHF: No Dementia: No Diabetes: No GI Disorders: No Disorders: No HTN: No Hypercholesterolemia: No Kidney Stones: No Liver Disease: No Psychiatric Problems: Yes (alcoholism) Suicide Attempt (Hx): No Seizures: No Thyroid Disease: No - Surgical History Abdominal Surgery: No Appendectomy: No Cardiac Surgery: No Cholecystectomy: No Lung Surgery: No Neurologic Surgery: No Orthopedic Surgery: No - Family Disease History Family Disease History: CA: Mother - Reproductive History Testicular Surgery: No - Immunization History TDAP Vaccination: Yes Immunization Up to Date: Yes - Psycho/Social/Smoking Cessation Hx Anxiety: No Suicidal Ideation: No Smoking Status: No Smoking History: Current some day smoker Have you smoked in the past 12 months: No Number of Cigarettes Smoked Daily: 0 Cigars Per Day: 0 Information on smoking cessation initiated: No 'Breaking Loose' booklet given: 07/29/16 Hx Alcohol Use: Yes (daily) Drug/Substance Use Hx: No Substance Use Type: Alcohol Hx Substance Use Treatment: Yes (DETOX ) <Suraj Santa - Last Filed: 08/10/16 21:59> - Past Medical History Allergies/Adverse Reactions: Allergies Allergy/AdvReac Type Severity Reaction Status Date / Time No Known Allergies Allergy Verified 08/10/16 18:04 Home Medications: Ambulatory Orders NK [No Known Home Medication] 07/12/16 Review of Systems - Review of Systems Able to Perform ROS?: Yes Comments:: 08/10/16 20:52 CONSTITUTIONAL: Absent: fever, chills, diaphoresis, generalized weakness, malaise, loss of appetite HEENT: Absent: rhinorrhea, nasal congestion, throat pain, throat swelling, difficulty swallowing, mouth swelling, ear pain, eye pain, visual Changes CARDIOVASCULAR: Absent: chest pain, syncope, palpitations, irregular heart rate, lightheadedness , peripheral edema RESPIRATORY: Absent: cough, shortness of breath, dyspnea with exertion, orthopnea, wheezing, stridor, hemoptysis GASTROINTESTINAL: Absent: abdominal pain, abdominal distension, nausea, vomiting, diarrhea, constipation, melena, hematochezia GENITOURINARY: Absent: dysuria, frequency, urgency, hesitancy, hematuria, flank pain, genital pain MUSCULOSKELETAL: Absent: myalgia, arthralgia, joint swelling SKIN: Absent: rash, itching, pallor HEMATOLOGIC/IMMUNOLOGIC: Absent: easy bleeding, easy bruising, lymphadenopathy, frequent infections ENDOCRINE: Absent: unexplained weight gain, unexplained weight loss, heat intolerance, cold intolerance NEUROLOGIC: Absent: headache, focal weakness or paresthesias, dizziness, unsteady gait, seizure, mental status changes, bladder or bowel incontinence PSYCHIATRIC: Absent: anxiety, depression, suicidal or homicidal ideation, hallucinations. <Ernestine Snyder - Last Filed: 08/10/16 20:51> *Physical Exam - Vital Signs Last Vital Signs Temp Pulse Resp BP Pulse Ox 97.9 F 88 18 92/53 92 L 08/10/16 18:01 08/10/16 18:01 08/10/16 18:01 08/10/16 18:01 08/10/16 18:01 - Physical Exam Comments: 08/10/16 20:52 GENERAL: (+) ETOH on breath. Obese. Awake and alert. No acute distress. HEENT: Normocephalic, atraumatic. PERRLA, EOMI. No conjunctival pallor. Sclera are non- icteric. Moist mucous membranes. Oropharynx is clear. NECK: Supple. Full ROM. No JVD. Carotid pulses 2+ and symmetric, without bruits. No thyromegaly. No lymphadenopathy. CARDIOVASCULAR: Regular rate and rhythm. No murmurs, rubs, or gallops. Distal pulses are 2+ and symmetric. PULMONARY: No evidence of respiratory distress. Lungs clear to auscultation bilaterally. No wheezing, rales or rhonchi. ABDOMINAL: Soft. Non-tender. Non-distended. No rebound or guarding. No organomegaly. Normoactive bowel sounds. MUSCULOSKELETAL Normal range of motion at all joints. No bony deformities or tenderness. No CVA tenderness. EXTREMITIES: No cyanosis. No clubbing. No edema. No calf tenderness. SKIN: Warm and dry. Normal capillary refill. No rashes. No jaundice. NEUROLOGICAL: Alert, awake, appropriate. Cranial nerves 2-12 intact. Normoreflexic in the upper and lower extremities. Normal speech. Toes are down-going bilaterally. Gait is normal without ataxia. PSYCHIATRIC: Cooperative. Good eye contact. Appropriate mood and affect. <Ernestine Snyder - Last Filed: 08/10/16 20:51> - Vital Signs Last Vital Signs Temp Pulse Resp BP Pulse Ox 97.9 F 88 18 92/53 92 L 08/10/16 18:01 08/10/16 18:01 08/10/16 18:01 08/10/16 18:01 08/10/16 18:01 <Suraj Santa - Last Filed: 08/10/16 21:59> *DC/Admit/Observation/Transfer - Attestations Scribe Attestion: 08/10/16 20:54 Documentation prepared by Ernestine Snyder, acting as medical physiologist for Suraj Santa MD, MD <Ernestine Snyder - Last Filed: 08/10/16 20:51> - Discharge Dispostion Admit: No <Suraj Santa - Last Filed: 08/10/16 21:59> Diagnosis at time of Disposition: Alcohol abuse, Alcohol intoxication - Discharge Dispostion Disposition: HOME Condition at time of disposition: Stable
[2016-08-10 22:58] VITALS: BP 119/78; PULSE 80; TEMP 98.3
== END 2016-08-11 06:10 | disposition home or self-care (01) ==
LOC: JER 17:45
DX: F10.220 Alcohol dependence with intoxication, uncomplicated (principal); C45.9 Mesothelioma, unspecified
CPT/HCPCS: 99284-25

== ENCOUNTER 2016-08-11 13:49 | Emergency (ER) | payer OTHER ==
[2016-08-11 14:11] VITALS: BMI 31.5
--- NOTE | 2016-08-11 17:10 | PDOC ---
History of Present Illness - General Chief Complaint: Alcohol intoxication Stated Complaint: INTOX Time Seen by Provider: 08/11/16 14:22 History Source: Patient, Old Records Exam Limitations: Intoxication - History of Present Illness Initial Comments: 08/11/16 17:06 61 Y M KNOWN TO ME AND MAUREEN'S FOR MULTIPLE VISITS WHILE INTOXICATED. ALCOHOL DEPENDANCE. WALKS IN C/O "EVERY TIME I LAY DOWN, I PASS OUT" STS NO CP, SOB. NO DIZZINESS. NO HEAD ACHE OR TRAUMA. NO N/V. NO CHANGES IN VISION OR SPEECH. NO PALPITATIONS. WHEN ASKED IF IT COULD BE BECAUSE HE'S DRUNK HE STATES "OH, THAT' S TRUE". IN NAD Past History - Past Medical History Allergies/Adverse Reactions: Allergies Allergy/AdvReac Type Severity Reaction Status Date / Time No Known Allergies Allergy Verified 08/10/16 18:04 Home Medications: Ambulatory Orders NK [No Known Home Medication] 07/12/16 Anemia: No Asthma: No Cancer: Yes (mesothelioma) Cardiac Disorders: No CVA: No COPD: No CHF: No Dementia: No Diabetes: No GI Disorders: No Disorders: No HTN: No Hypercholesterolemia: No Kidney Stones: No Liver Disease: No Psychiatric Problems: Yes (alcoholism) Suicide Attempt (Hx): No Seizures: No Thyroid Disease: No - Surgical History Abdominal Surgery: No Appendectomy: No Cardiac Surgery: No Cholecystectomy: No Lung Surgery: No Neurologic Surgery: No Orthopedic Surgery: No - Family Disease History Family Disease History: CA: Mother - Reproductive History Testicular Surgery: No - Immunization History TDAP Vaccination: Yes Immunization Up to Date: Yes - Psycho/Social/Smoking Cessation Hx Anxiety: No Suicidal Ideation: No Smoking Status: No Smoking History: Never smoked Have you smoked in the past 12 months: No Number of Cigarettes Smoked Daily: 0 Cigars Per Day: 0 Information on smoking cessation initiated: No 'Breaking Loose' booklet given: 07/29/16 Hx Alcohol Use: Yes Drug/Substance Use Hx: No Substance Use Type: Alcohol Hx Substance Use Treatment: Yes (DETOX ) Review of Systems - Review of Systems Able to Perform ROS?: Yes Is the patient limited Algerian proficient: No Constitutional: No: Symptoms Reported HEENTM: No: Symptoms Reported Respiratory: No: Symptoms reported Cardiac (ROS): No: Symptoms Reported ABD/GI: No: Symptoms Reported : No: Symptoms Reported Musculoskeletal: Yes: Symptoms Reported, Back Pain Integumentary: No: Symptoms Reported Neurological: No: Symptoms reported *Physical Exam - Vital Signs Last Vital Signs Temp Pulse Resp BP Pulse Ox 98.4 F 93 H 18 120/75 100 08/11/16 14:08 08/11/16 14:08 08/11/16 14:08 08/11/16 14:08 08/11/16 14:08 - Physical Exam General Appearance: Yes: Nourished, Disheveled. No: Appropriately Dressed, Apparent Distress HEENT: positive: EOMI, DOUGLAS, Normal ENT Inspection Neck: positive: Supple. negative: Tender, Carotid bruit Respiratory/Chest: positive: Lungs Clear, Normal Breath Sounds. negative: Chest Tender, Respiratory Distress Cardiovascular: positive: Regular Rhythm, Regular Rate Gastrointestinal/Abdominal: positive: Normal Bowel Sounds, Soft. negative: Tender Musculoskeletal: positive: Normal Inspection Integumentary: positive: Normal Color. negative: Petechiae, Rash, Swelling, Ecchymosis, Bruising Neurologic: positive: Fully Oriented, Alert, Normal Mood/Affect, Normal Response , Motor Strength 5/5 *DC/Admit/Observation/Transfer Diagnosis at time of Disposition: Alcohol abuse, Alcohol dependence, Alcohol intoxication - Discharge Dispostion Disposition: HOME Condition at time of disposition: Improved - Patient Instructions Printed Discharge Instructions: DI for Alcohol Abuse
[2016-08-11 22:55] VITALS: BP 135/70; PULSE 87; TEMP 98.3
== END 2016-08-12 06:50 | disposition home or self-care (01) ==
LOC: JER 13:49
DX: F10.220 Alcohol dependence with intoxication, uncomplicated (principal)
CPT/HCPCS: 99283-25

== ENCOUNTER 2016-08-12 19:03 | Emergency (ER) | payer OTHER ==
--- NOTE | 2016-08-12 19:22 | PDOC ---
Rapid Medical Evaluation Time Seen by Provider: 08/12/16 19:19 Medical Evaluation: Allergies Allergy/AdvReac Type Severity Reaction Status Date / Time No Known Allergies Allergy Verified 08/10/16 18:04 08/12/16 19:07 61 yo M c/o SOB today. No cp. +ETOH
[2016-08-12 19:30] VITALS: BP 98/52; PULSE 80; BMI 31.5
--- NOTE | 2016-08-12 21:55 | PDOC ---
History of Present Illness - General History Source: Patient, Old Records Exam Limitations: No Limitations - History of Present Illness Initial Comments: 08/12/16 22:02 The patient is a 61 year old male with a significant past medical history of pleural effusions, benzene abuse, HTN, GERD, ETOH abuse, who presents to the emergency department today for further evaluation of shortness of breath for one week. The patient reports that he a productive cough with green sputum. The patient reports that he has been drinking. The patient denies fever, chills, and sweats. The patient denies weight loss, nausea, vomiting, and diarrhea. The patient denies chest pain, cough, and shortness of breath. PAST MEDICAL HISTORY: As per HPI PAST SURGICAL HISTORY: No significant history reported FAMILY HISTORY: No pertinent history reported SOCIAL HISTORY: None reported MEDICATIONS: Reviewed ALLERGIES: As per nursing notes <Isaak Stephenson - Last Filed: 08/12/16 23:32> - General History Source: Patient <PerryorquideaAltaf - Last Filed: 08/13/16 06:25> - General Chief Complaint: Respiratory Stated Complaint: CHEST PAIN Time Seen by Provider: 08/12/16 19:19 Past History <Isaak Stephenson - Last Filed: 08/12/16 23:32> - Past Medical History Anemia: No Asthma: No Cancer: Yes (mesothelioma) Cardiac Disorders: No CVA: No COPD: No CHF: No Dementia: No Diabetes: No GI Disorders: No Disorders: No HTN: No Hypercholesterolemia: No Kidney Stones: No Liver Disease: No Psychiatric Problems: Yes (alcoholism) Suicide Attempt (Hx): No Seizures: No Thyroid Disease: No - Surgical History Abdominal Surgery: No Appendectomy: No Cardiac Surgery: No Cholecystectomy: No Lung Surgery: No Neurologic Surgery: No Orthopedic Surgery: No - Family Disease History Family Disease History: CA: Mother - Reproductive History Testicular Surgery: No - Immunization History TDAP Vaccination: Yes Immunization Up to Date: Yes - Psycho/Social/Smoking Cessation Hx Anxiety: No Suicidal Ideation: No Smoking Status: No Smoking History: Smoker current status UNK Have you smoked in the past 12 months: No Number of Cigarettes Smoked Daily: 0 Cigars Per Day: 0 'Breaking Loose' booklet given: 07/29/16 Hx Alcohol Use: Yes Drug/Substance Use Hx: No Substance Use Type: Alcohol Hx Substance Use Treatment: Yes (DETOX ) <Altaf Iniguez - Last Filed: 08/13/16 06:25> - Past Medical History Allergies/Adverse Reactions: Allergies Allergy/AdvReac Type Severity Reaction Status Date / Time No Known Allergies Allergy Verified 08/12/16 19:20 Home Medications: Ambulatory Orders NK [No Known Home Medication] 07/12/16 Review of Systems - Review of Systems Able to Perform ROS?: Yes Comments:: 08/12/16 22:03 CONSTITUTIONAL: Absent: fever, chills, diaphoresis, generalized weakness, malaise, loss of appetite HEENT: Absent: rhinorrhea, nasal congestion, throat pain, throat swelling, difficulty swallowing, mouth swelling, ear pain, eye pain, visual Changes CARDIOVASCULAR: Absent: chest pain, syncope, palpitations, irregular heart rate, lightheadedness , peripheral edema RESPIRATORY: Present: Productive cough, shortness of breath Absent: dyspnea with exertion, orthopnea, wheezing, stridor, hemoptysis GASTROINTESTINAL: Absent: abdominal pain, abdominal distension, nausea, vomiting, diarrhea, constipation, melena, hematochezia GENITOURINARY: Absent: dysuria, frequency, urgency, hesitancy, hematuria, flank pain, genital pain MUSCULOSKELETAL: Absent: myalgia, arthralgia, joint swelling SKIN: Absent: rash, itching, pallor HEMATOLOGIC/IMMUNOLOGIC: Absent: easy bleeding, easy bruising, lymphadenopathy, frequent infections ENDOCRINE: Absent: unexplained weight gain, unexplained weight loss, heat intolerance, cold intolerance NEUROLOGIC: Absent: headache, focal weakness or paresthesias, dizziness, unsteady gait, seizure, mental status changes, bladder or bowel incontinence PSYCHIATRIC: Absent: anxiety, depression, suicidal or homicidal ideation, hallucinations. <Isaak Stephenson - Last Filed: 08/12/16 23:32> *Physical Exam - Vital Signs Last Vital Signs Temp Pulse Resp BP Pulse Ox 80 18 98/52 94 L 08/12/16 19:21 08/12/16 19:21 08/12/16 19:21 08/12/16 19:21 - Physical Exam Comments: 08/12/16 22:03 GENERAL: Well developed, well nourished. Awake and alert. In no acute distress. HEENT: Normocephalic, atraumatic. PERRLA, EOMI. No conjunctival pallor. Sclera are non- icteric. Moist mucous membranes. Oropharynx is clear. NECK: Supple. Full ROM. No JVD. Carotid pulses 2+ and symmetric, without bruits. No thyromegaly. No lymphadenopathy. CARDIOVASCULAR: Regular rate and rhythm. No murmurs, rubs, or gallops. Distal pulses are 2+ and symmetric. PULMONARY: (+) Decreased breath sounds bilaterally with poor air exchange. ABDOMINAL: Soft. Non-tender. Non-distended. No rebound or guarding. No organomegaly. Normoactive bowel sounds. MUSCULOSKELETAL Normal range of motion at all joints. No bony deformities or tenderness. No CVA tenderness. EXTREMITIES: No cyanosis. No clubbing. No edema. No calf tenderness. SKIN: Warm and dry. Normal capillary refill. No rashes. No jaundice. NEUROLOGICAL: Alert, awake, appropriate. Cranial nerves 2-12 intact. No deficits to light touch and temperature in face, upper extremities and lower extremities. No motor deficits in the in face, upper extremities and lower extremities. Normoreflexic in the upper and lower extremities. Normal speech. Toes are downgoing bilaterally. Gait is normal without ataxia. PSYCHIATRIC: Cooperative. Good eye contact. Appropriate mood and affect. <Isaak Stephenson - Last Filed: 08/12/16 23:32> - Vital Signs Last Vital Signs Temp Pulse Resp BP Pulse Ox 80 18 98/52 94 L 08/12/16 19:21 08/12/16 19:21 08/12/16 19:21 08/12/16 19:21 <Altaf Iniguez - Last Filed: 08/13/16 06:25> Heart Score/ECG Review - ECG Impressions Comment:: 08/12/16 22:04 ECG Impression: Normal sinus rhythm. Left axis deviation. Prolonged QT. Abnormal ECG. <Isaak Stephenson - Last Filed: 08/12/16 23:32> Medical Decision Making - Medical Decision Making 08/13/16 06:25 Dr. Iniguez: The scribe's documentation has been prepared under my direction and personally reviewed by me in its entirery. I confirm that the note above accurately reflects all work, treatment, procedures, and medical decision making performed by me. <Altaf Iniguez - Last Filed: 08/13/16 06:25> *DC/Admit/Observation/Transfer - Attestations Scribe Attestion: 08/12/16 22:03 Documentation prepared by Isaak Stephenson, acting as director of medical staff services for Altaf Iniguez MD. <Isaak Stephenson - Last Filed: 08/12/16 23:32> - Discharge Dispostion Admit: No <Altaf Iniguez - Last Filed: 08/13/16 06:25> Diagnosis at time of Disposition: Alcohol abuse, Atypical chest pain - Discharge Dispostion Disposition: HOME Condition at time of disposition: Stable - Patient Instructions Printed Discharge Instructions: DI for Shortness of Breath, DI for Alcohol Abuse
--- NOTE | 2016-08-13 13:58 | EKG ---
Test Reason : Blood Pressure : / mmHG Vent. Rate : 083 BPM Atrial Rate : 083 BPM P-R Int : 168 ms QRS Dur : 100 ms QT Int : 430 ms P-R-T Axes : 014 -36 014 degrees QTc Int : 505 ms NORMAL SINUS RHYTHM LEFT AXIS DEVIATION PROLONGED QT ABNORMAL ECG WHEN COMPARED WITH ECG OF 02-AUG-2016 15:53, CRITERIA FOR SEPTAL INFARCT ARE NO LONGER PRESENT T WAVE INVERSION NO LONGER EVIDENT IN ANTERIOR LEADS Confirmed by YONATAN CHAKRABORTY MD ([id number]) on 08/13/2016 1:57:51 PM Referred By: Confirmed By:YONATAN CHAKRABORTY MD
== END 2016-08-13 06:46 | disposition home or self-care (01) ==
LOC: JER 19:03
DX: R07.9 Chest pain, unspecified (principal); F10.220 Alcohol dependence with intoxication, uncomplicated
CPT/HCPCS: 71020-TC; 93005; 93010; 99282-25

== ENCOUNTER 2016-08-13 19:52 | Emergency (ER) | payer OTHER ==
[2016-08-13 20:03] VITALS: BP 141/89; PULSE 94; TEMP 97.9; BMI 32.3
--- NOTE | 2016-08-14 02:34 | PDOC ---
[id number]: INTOXICATED Time Seen by Provider: 08/13/16 20:14 History Source: Patient Exam Limitations: No Limitations - History of Present Illness Initial Comments: 08/14/16 02:23 Patient is 61-year-old male with history of alcohol abuse, well-known to this [facility]. brought in by EMS for acute alcohol intoxication. Patient denies trauma or toxic co-ingestion. Patient was noted lying in the dirt prior to arrival in the ER. Patient been seen in this ER 12 hours previously. REVIEW OF SYSTEMS CONSTITUTIONAL: No fever, no chills, no fatigue EYES: No visual changes ENT: No ear pain, no sore throat CARDIOVASCULAR: No chest pain, no palpitations RESPIRATORY: No cough, no SOB GI: No abdominal pain, no nausea, no vomiting, no constipation, no diarrhea GENITOURINARY: No dysuria, no frequency, no hematuria MUSKULOSKELETAL: No backpain, no joint pain, no myalgias SKIN: No rash NEURO: No headache, + alcohol intoxication EXAMINATION CONSTITUTIONAL: Lethargic but easily arousable to verbal stimuli, + AOB, follows commands HEAD: Normocephalic; atraumatic EYES: PERRL; EOM intact ENMT: External appears normal; normal oropharynx; plethoric NECK: Supple; non-tender; no cervical lymphadenopathy CARD: Normal S1, S2; no murmurs, rubs, or gallops RESP: Normal chest excursion with respiration; breath sounds clear and equal bilaterally; no wheezes, rhonchi, or rales ABD: Soft, non-distended; non-tender; no palpable organomegaly, no palpable hernias EXT: Normal ROM in all four extremities; non-tender to palpation; distal pulses intact SKIN: Warm, dry, no rash NEURO: letahrgic, easily arousable, moving all extr symmetrically Past History - Past Medical History Allergies/Adverse Reactions: Allergies Allergy/AdvReac Type Severity Reaction Status Date / Time No Known Allergies Allergy Verified 08/13/16 20:03 Home Medications: Ambulatory Orders NK [No Known Home Medication] 07/12/16 Anemia: No Asthma: No Cancer: Yes (mesothelioma) Cardiac Disorders: No CVA: No COPD: No CHF: No Dementia: No Diabetes: No GI Disorders: No Disorders: No HTN: No Hypercholesterolemia: No Kidney Stones: No Liver Disease: No Psychiatric Problems: Yes (alcoholism) Suicide Attempt (Hx): No Seizures: No Thyroid Disease: No - Surgical History Abdominal Surgery: No Appendectomy: No Cardiac Surgery: No Cholecystectomy: No Lung Surgery: No Neurologic Surgery: No Orthopedic Surgery: No - Family Disease History Family Disease History: CA: Mother - Reproductive History Testicular Surgery: No - Immunization History TDAP Vaccination: Yes Immunization Up to Date: Yes - Psycho/Social/Smoking Cessation Hx Anxiety: No Suicidal Ideation: No Smoking Status: No Smoking History: Smoker current status UNK Have you smoked in the past 12 months: No Number of Cigarettes Smoked Daily: 0 Cigars Per Day: 0 Information on smoking cessation initiated: No 'Breaking Loose' booklet given: 07/29/16 Hx Alcohol Use: Yes Drug/Substance Use Hx: No Substance Use Type: Alcohol Hx Substance Use Treatment: Yes (DETOX ) *Physical Exam - Vital Signs Last Vital Signs Temp Pulse Resp BP Pulse Ox 97.9 F 94 H 22 141/89 97 08/13/16 20:00 08/13/16 20:00 08/13/16 20:00 08/13/16 20:00 08/13/16 20:00 *DC/Admit/Observation/Transfer Diagnosis at time of Disposition: Alcohol abuse - Discharge Dispostion Disposition: HOME Condition at time of disposition: Fair - Referrals Referrals: Orin Ornelas MD [Staff Physician] - STAFF,NOT ON [Primary Care Provider] - - Patient Instructions Printed Discharge Instructions: DI for Alcohol Abuse
--- NOTE | 2016-08-14 06:55 | PDOC ---
*Physical Exam - Vital Signs Last Vital Signs Temp Pulse Resp BP Pulse Ox 97.9 F 94 H 22 141/89 97 08/13/16 20:00 08/13/16 20:00 08/13/16 20:00 08/13/16 20:00 08/13/16 20:00 *DC/Admit/Observation/Transfer Diagnosis at time of Disposition: Alcohol abuse - Discharge Dispostion Disposition: HOME Condition at time of disposition: Stable Admit: No - Referrals Referrals: STAFF,NOT ON [Primary Care Provider] - Orin Ornelas MD [Staff Physician] - - Patient Instructions Printed Discharge Instructions: DI for Alcohol Abuse - Post Discharge Activity
== END 2016-08-14 07:02 | disposition home or self-care (01) ==
LOC: SUPCPDRO 19:52 → JER 19:52
DX: F10.220 Alcohol dependence with intoxication, uncomplicated (principal); C45.9 Mesothelioma, unspecified
CPT/HCPCS: 99282-25

== ENCOUNTER 2016-08-14 13:04 | Emergency (ER) | payer OTHER ==
[2016-08-14 13:28] VITALS: BP 113/60; PULSE 90; TEMP 97.5; BMI 28.4
--- NOTE | 2016-08-14 15:22 | PDOC ---
History of Present Illness - General History Source: Patient Exam Limitations: Intoxication - History of Present Illness Initial Comments: 08/14/16 15:32 The patient is a 61-year-old male with a significant past medical history of alcohol abuse and chronic back pain, and presents to the emergency department via EMS for ETOH intoxication today. The patient is a frequent patron of this ER with multiple visits for ETOH intoxication. The patient reports he drank a pint of liquor today. The patient denies chest pain, shortness of breath, headache and dizziness. The patient denies fever, chills, nausea, vomit, diarrhea and constipation. The patient denies dysuria, frequency, urgency and hematuria. Allergies: NKDA Social History: ETOH abuse <Joelle Smalls - Last Filed: 08/14/16 15:31> - General History Source: Patient Exam Limitations: No Limitations <Sadia Cornell - Last Filed: 08/15/16 19:32> - General Chief Complaint: Alcohol intoxication Stated Complaint: INTOX Time Seen by Provider: 08/14/16 13:16 Past History <Joelle Smalls - Last Filed: 08/14/16 15:31> - Past Medical History Anemia: No Asthma: No Cancer: Yes (mesothelioma) Cardiac Disorders: No CVA: No COPD: No CHF: No Dementia: No Diabetes: No GI Disorders: No Disorders: No HTN: No Hypercholesterolemia: No Kidney Stones: No Liver Disease: No Psychiatric Problems: Yes (alcoholism) Suicide Attempt (Hx): No Seizures: No Thyroid Disease: No - Surgical History Abdominal Surgery: No Appendectomy: No Cardiac Surgery: No Cholecystectomy: No Lung Surgery: No Neurologic Surgery: No Orthopedic Surgery: No - Family Disease History Family Disease History: CA: Mother - Reproductive History Testicular Surgery: No - Immunization History TDAP Vaccination: Yes Immunization Up to Date: Yes - Psycho/Social/Smoking Cessation Hx Anxiety: No Suicidal Ideation: No Smoking Status: No Smoking History: Smoker current status UNK Have you smoked in the past 12 months: No Number of Cigarettes Smoked Daily: 0 Cigars Per Day: 0 Information on smoking cessation initiated: No 'Breaking Loose' booklet given: 07/29/16 Hx Alcohol Use: No Drug/Substance Use Hx: No Substance Use Type: Alcohol Hx Substance Use Treatment: Yes (DETOX ) <Sadia Cornell - Last Filed: 08/15/16 19:32> - Past Medical History Allergies/Adverse Reactions: Allergies Allergy/AdvReac Type Severity Reaction Status Date / Time No Known Allergies Allergy Verified 08/13/16 20:03 Home Medications: Ambulatory Orders NK [No Known Home Medication] 07/12/16 Review of Systems - Review of Systems Comments:: 08/14/16 15:32 GENERAL/CONSTITUTIONAL: No fever or chills. No weakness. HEAD, EYES, EARS, NOSE AND THROAT: No change in vision. No ear pain or discharge. No sore throat. CARDIOVASCULAR: No chest pain or shortness of breath. RESPIRATORY: No cough, wheezing, or hemoptysis. GASTROINTESTINAL: No nausea, vomiting, diarrhea or constipation. GENITOURINARY: No dysuria, frequency, or change in urination. MUSCULOSKELETAL: No joint or muscle swelling or pain. No neck or back pain. SKIN: No rash NEUROLOGIC: No headache, vertigo, loss of consciousness, or change in strength/ sensation. ENDOCRINE: No increased thirst. No abnormal weight change. HEMATOLOGIC/LYMPHATIC: No anemia, easy bleeding, or history of blood clots. ALLERGIC/IMMUNOLOGIC: No hives or skin allergy. <Joelle Smalls - Last Filed: 08/14/16 15:31> *Physical Exam - Vital Signs Last Vital Signs Temp Pulse Resp BP Pulse Ox 97.5 F L 90 20 113/60 98 08/14/16 13:20 08/14/16 13:20 08/14/16 13:20 08/14/16 13:20 08/14/16 13:20 - Physical Exam Comments: 08/14/16 15:33 GENERAL: Awake, alert, and fully oriented, in no acute distress. (+) Patient appears somnolent. HEAD: No signs of trauma EYES: PERRLA, EOMI, sclera anicteric, conjunctiva clear ENT: Auricles normal inspection, hearing grossly normal, nares patent, oropharynx clear without exudates. Moist mucosa NECK: Normal ROM, supple, no lymphadenopathy, JVD, or masses LUNGS: Breath sounds equal, clear to auscultation bilaterally. No wheezes, and no crackles HEART: Regular rate and rhythm, normal S1 and S2, no murmurs, rubs or gallops ABDOMEN: Soft, nontender, normoactive bowel sounds. No guarding, no rebound. No masses EXTREMITIES: Normal range of motion, no edema. No clubbing or cyanosis. No cords, erythema, or tenderness NEUROLOGICAL: Cranial nerves II through XII grossly intact. SKIN: Warm, Dry, normal turgor, no rashes or lesions noted. <Joelle Smalls - Last Filed: 08/14/16 15:31> - Vital Signs Last Vital Signs Temp Pulse Resp BP Pulse Ox 97.5 F L 90 20 113/60 98 08/14/16 13:20 08/14/16 13:20 08/14/16 13:20 08/14/16 13:20 08/14/16 13:20 <Sadia Cornell - Last Filed: 08/15/16 19:32> Medical Decision Making - Medical Decision Making 08/14/16 15:21 A portion of this note was documented by scribe services under my direction. I have reviewed the details of the note, within reason, and agree with the documentation with the following case summary and management plan written by me. Nursing documentation reviewed and incorporated into medical decision making Sunil is a 61 yo M, well known to the ER He presented again via EMS intoxicated Pt is indeed intoxicated Admits to drinking today No head trauma He is arousable and is able to answer my questions No focal weakness He states he has not had any new trauma Pt repeatedly re assessed over his ER course Appropriate metabolism of alcohol 08/14/16 18:08 Upon re assessment, pt states he feels well No complaints Still intoxicated, speaking with slurred speech Pt signed out to Dr Iniguez Pt can be discharged once ambulatory with steady gait <Sadia Cornell - Last Filed: 08/15/16 19:32> *DC/Admit/Observation/Transfer - Attestations Scribe Attestion: 08/14/16 15:33 Documentation prepared by Joelle Smalls, acting as senior medical writer for Sadia Cornell MD. <Joelle Smalls - Last Filed: 08/14/16 15:31> - Discharge Dispostion Admit: No <Sadia Cornell - Last Filed: 08/15/16 19:32> Diagnosis at time of Disposition: Alcohol abuse - Discharge Dispostion Disposition: HOME Condition at time of disposition: Stable - Patient Instructions Printed Discharge Instructions: DI for Alcohol Abuse
[2016-08-15] MEDS ORDERED: chlordiazePOXIDE HCL 25 MG CAPSULE PO ONE (04:43)
== END 2016-08-15 06:26 | disposition home or self-care (01) ==
LOC: JER 13:04
DX: F10.220 Alcohol dependence with intoxication, uncomplicated (principal); C45.9 Mesothelioma, unspecified
CPT/HCPCS: 99282-25

== ENCOUNTER 2016-08-15 19:44 | Emergency (ER) | payer OTHER ==
--- NOTE | 2016-08-15 19:58 | PDOC ---
[id number]: INTOX/KNEE PAIN History Source: Patient Exam Limitations: No Limitations - History of Present Illness Timing/Duration: 4-6 hours Past History - Past Medical History Allergies/Adverse Reactions: Allergies Allergy/AdvReac Type Severity Reaction Status Date / Time No Known Allergies Allergy Verified 08/15/16 20:30 Home Medications: Ambulatory Orders NK [No Known Home Medication] 07/12/16 Anemia: No Asthma: No Cancer: Yes (mesothelioma) Cardiac Disorders: No CVA: No COPD: No CHF: No Dementia: No Diabetes: No GI Disorders: No Disorders: No HTN: No Hypercholesterolemia: No Kidney Stones: No Liver Disease: No Psychiatric Problems: Yes (alcoholism) Suicide Attempt (Hx): No Seizures: No Thyroid Disease: No - Surgical History Abdominal Surgery: No Appendectomy: No Cardiac Surgery: No Cholecystectomy: No Lung Surgery: No Neurologic Surgery: No Orthopedic Surgery: No - Family Disease History Family Disease History: CA: Mother - Reproductive History Testicular Surgery: No - Immunization History TDAP Vaccination: Yes Immunization Up to Date: Yes - Psycho/Social/Smoking Cessation Hx Anxiety: No Suicidal Ideation: No Smoking Status: No Smoking History: Smoker current status UNK Have you smoked in the past 12 months: No Number of Cigarettes Smoked Daily: 0 Cigars Per Day: 0 'Breaking Loose' booklet given: 07/29/16 Hx Alcohol Use: No Drug/Substance Use Hx: No Substance Use Type: Alcohol Hx Substance Use Treatment: Yes (DETOX ) *DC/Admit/Observation/Transfer Diagnosis at time of Disposition: lbme - Discharge Dispostion Disposition: LEFT BEFORE [facility]GELO WO[facility]
[2016-08-15 20:30] VITALS: BP 90/54; PULSE 86; TEMP 97.6; BMI 32.3
== END 2016-08-15 23:00 | disposition left against medical advice (07) ==
LOC: JER 19:44
DX: Z53.21 Procedure and treatment not carried out due to patient leaving prior to being seen by health care provider (principal)
CPT/HCPCS: 99282-25

== ENCOUNTER 2016-08-16 02:09 | Emergency (ER) | payer OTHER ==
[2016-08-16 02:57] VITALS: BP 76/40; PULSE 80; TEMP 98.1; BMI 32.3
--- NOTE | 2016-08-16 03:27 | PDOC ---
History of Present Illness - General Chief Complaint: Alcohol intoxication Stated Complaint: INTOX Time Seen by Provider: 08/16/16 02:14 History Source: Patient Exam Limitations: No Limitations - History of Present Illness Timing/Duration: 4-6 hours Past History - Travel Traveled outside of the country in the last 30 days: No Close contact w/someone who was outside of country & ill: No - Past Medical History Allergies/Adverse Reactions: Allergies Allergy/AdvReac Type Severity Reaction Status Date / Time No Known Allergies Allergy Verified 08/16/16 02:56 Home Medications: Ambulatory Orders NK [No Known Home Medication] 07/12/16 Anemia: No Asthma: No Cancer: Yes (mesothelioma) Cardiac Disorders: No CVA: No COPD: No CHF: No Dementia: No Diabetes: No GI Disorders: No Disorders: No HTN: No Hypercholesterolemia: No Kidney Stones: No Liver Disease: No Psychiatric Problems: Yes (alcoholism) Suicide Attempt (Hx): No Seizures: No Thyroid Disease: No - Surgical History Abdominal Surgery: No Appendectomy: No Cardiac Surgery: No Cholecystectomy: No Lung Surgery: No Neurologic Surgery: No Orthopedic Surgery: No - Family Disease History Family Disease History: CA: Mother - Reproductive History Testicular Surgery: No - Immunization History TDAP Vaccination: Yes Immunization Up to Date: Yes - Psycho/Social/Smoking Cessation Hx Anxiety: No Suicidal Ideation: No Smoking Status: No Smoking History: Unknown if ever smoked Have you smoked in the past 12 months: No Number of Cigarettes Smoked Daily: 0 Cigars Per Day: 0 Information on smoking cessation initiated: No 'Breaking Loose' booklet given: 07/29/16 Hx Alcohol Use: No Drug/Substance Use Hx: No Substance Use Type: Alcohol Hx Substance Use Treatment: Yes (DETOX ) *Physical Exam - Vital Signs Last Vital Signs Temp Pulse Resp BP Pulse Ox 98.1 F 80 19 76/40 97 08/16/16 02:51 08/16/16 02:51 08/16/16 02:51 08/16/16 02:51 08/16/16 02:51 *DC/Admit/Observation/Transfer Diagnosis at time of Disposition: Alcohol abuse - Discharge Dispostion Disposition: HOME Condition at time of disposition: Stable - Patient Instructions Printed Discharge Instructions: DI for Alcohol Abuse Additional Instructions: Return to the ER for any chest pain or shortness of breath Progress Note - Progress Note Progress Note: History of Present Illness: 61-year-old male with PMH of mesothelioma with an extension hx of EtOH abuse with multiple ER visits and admissions due to EtOH abuse is biba for public intoxication. Patient at this time is noted to have AOB. Patient is not slurring his speech at this time but is unstable in gait and is intoxicated. Patient is A&Ox3 to deny f/c,n/v/d, constipation, lightheadedness, dizziness, guerra, blurry vision, visual disturbance, chest pain, sob, neck/back pain, abd pain , urinary symptoms; urgency/frequency/hesitancy, hematuria. Patient denies any sick contacts, travel outside the [place] or contact with any sick individuals who have been outside the [place]. Past Medical History: ETOH abuse, Mesothelioma Family History: Mother with cancer Social History: EtOH abuse Surgical history: Denies Allergies: No known drug allergies ROS: CONSTITUTIONAL: Absent: fever, chills, diaphoresis, generalized weakness, malaise, loss of appetite HEENT: Absent: rhinorrhea, nasal congestion, throat pain, throat swelling, difficulty swallowing, mouth swelling, ear pain, eye pain, visual Changes CARDIOVASCULAR: Absent: chest pain, loss of consciousness, palpitations, irregular heart rate, peripheral edema RESPIRATORY: Absent: cough, shortness of breath, dyspnea with exertion, orthopnea, wheezing, stridor, hemoptysis GASTROINTESTINAL: Absent: abdominal pain, abdominal distension, nausea, vomiting, diarrhea, constipation, melena, hematochezia GENITOURINARY: Absent: dysuria, frequency, urgency, hesitancy, hematuria, flank pain, genital pain MUSCULOSKELETAL: Absent: myalgia, arthralgia, joint swelling SKIN: Absent: rash, itching, pallor HEMATOLOGIC/IMMUNOLOGIC: Absent: easy bleeding, easy bruising, lymphadenopathy, frequent infections ENDOCRINE: Absent: unexplained weight gain, unexplained weight loss, heat intolerance, cold intolerance NEUROLOGIC: Absent: headache, focal weakness or paresthesias, dizziness, unsteady gait, seizure, mental status changes, bladder or bowel incontinence PSYCHIATRIC: Absent:+EtOH abuse, No depression or anxiety.anxiety, depression, suicidal or homicidal ideation, hallucinations. GENERAL: Well developed, well nourished. Awake and alert. No acute distress. HEENT: Normocephalic, atraumatic. PERRLA, EOMI. No conjunctival pallor. Sclera are non- icteric. Moist mucous membranes. Oropharynx is clear. NECK: Supple. Full ROM. No JVD. Carotid pulses 2+ and symmetric, without bruits. No thyromegaly. No lymphadenopathy. CARDIOVASCULAR: Regular rate and rhythm. No murmurs, rubs, or gallops. Distal pulses are 2+ and symmetric. PULMONARY: No evidence of respiratory distress. Lungs clear to auscultation bilaterally. No wheezing, rales or rhonchi. ABDOMINAL: Soft. Non-tender. Non-distended. No rebound or guarding. No organomegaly. Normoactive bowel sounds. MUSCULOSKELETAL Normal range of motion at all joints. No bony deformities or tenderness. No CVA tenderness. EXTREMITIES: No cyanosis. No clubbing. No edema. No calf tenderness. SKIN: Warm and dry. Normal capillary refill. No rashes. No jaundice. NEUROLOGICAL: Alert, awake, appropriate. Cranial nerves 2-12 intact. No deficits to light touch and temperature in face, upper extremities and lower extremities. No motor deficits in the in face, upper extremities and lower extremities. Normoreflexic in the upper and lower extremities. Normal speech. Toes are down- going bilaterally. Gait is normal without ataxia. PSYCHIATRIC: Cooperative. Good eye contact. Appropriate mood and affect. Medical Decision Making Patient reassessment: Patient has been noted to be walking and emergency department without difficulty or ataxic gait. Patient is able to communicate clearly and has straight clear mentation. I will discharge this patient to follow-up with outpatient PCP. Patient does not indicate desire at this time for detox. I discussed the physical exam findings, ancillary test results and final diagnoses with the patient. I answered all of the patient's questions. The patient was satisfied with the care received and felt comfortable with the discharge plan and treatment plan. The patient will call their primary care physician within 24 hours to arrange follow-up and will return to the Emergency Department with any new, persistent or worsening symptoms. Printed Discharge Instructions: DI for Alcohol Abuse Additional Instructions: Please follow-up with the included referral for PCP. Return to emergency room if shortness of breath, wheezing, fever greater than 101, chest pain, or fainting occurs.
== END 2016-08-16 08:01 | disposition home or self-care (01) ==
LOC: JER 02:09
DX: F10.220 Alcohol dependence with intoxication, uncomplicated (principal); C45.9 Mesothelioma, unspecified
CPT/HCPCS: 99283-25

== ENCOUNTER 2016-08-16 18:59 | Emergency (ER) | payer OTHER ==
[2016-08-16 19:10] VITALS: BP 99/64; PULSE 96; TEMP 97.3; BMI 31.5
--- NOTE | 2016-08-16 20:00 | PDOC ---
History of Present Illness - General Chief Complaint: Alcohol intoxication Stated Complaint: ALCOHOL INTOXICATION Time Seen by Provider: 08/16/16 19:56 Past History - Past Medical History Allergies/Adverse Reactions: Allergies Allergy/AdvReac Type Severity Reaction Status Date / Time No Known Allergies Allergy Verified 08/16/16 19:07 Home Medications: Ambulatory Orders NK [No Known Home Medication] 07/12/16 Anemia: No Asthma: No Cancer: Yes (mesothelioma) Cardiac Disorders: No CVA: No COPD: No CHF: No Dementia: No Diabetes: No GI Disorders: No Disorders: No HTN: No Hypercholesterolemia: No Kidney Stones: No Liver Disease: No Psychiatric Problems: Yes (alcoholism) Suicide Attempt (Hx): No Seizures: No Thyroid Disease: No - Surgical History Abdominal Surgery: No Appendectomy: No Cardiac Surgery: No Cholecystectomy: No Lung Surgery: No Neurologic Surgery: No Orthopedic Surgery: No - Family Disease History Family Disease History: CA: Mother - Reproductive History Testicular Surgery: No - Immunization History TDAP Vaccination: Yes Immunization Up to Date: Yes - Psycho/Social/Smoking Cessation Hx Anxiety: No Suicidal Ideation: No Smoking Status: No Smoking History: Never smoked Have you smoked in the past 12 months: No Number of Cigarettes Smoked Daily: 0 Cigars Per Day: 0 Information on smoking cessation initiated: No 'Breaking Loose' booklet given: 07/29/16 Hx Alcohol Use: Yes Drug/Substance Use Hx: No Substance Use Type: Alcohol Hx Substance Use Treatment: Yes (DETOX ) Review of Systems - Review of Systems Constitutional: No: Symptoms Reported, See HPI, Chills, Diaphoresis, Fever, Loss of Appetite, Malaise, Night Sweats, Weakness, Weight Stable, Unintentional Wgt. Loss, Unexplained wgt Loss, Other HEENTM: No: Symptoms Reported, See HPI, Eye Pain, Blurred Vision, Tearing, Recent change in vision, Double Vision, Cataracts, Ear Pain, Ocular Prothesis, Ear Discharge, Nose Pain, Nose Congestion, Tinnitus, Nose Bleeding, Hearing Loss , Throat Pain, Throat Swelling, Mouth Pain, Dental Problems, Difficulty Swallowing, Mouth Swelling, Other Respiratory: No: Symptoms reported, See HPI, Cough, Orthopnea, Shortness of Breath, SOB with Exertion, SOB at Rest, Stridor, Wheezing, Productive cough, Hemoptysis, Other Cardiac (ROS): No: Symptoms Reported, See HPI, Chest Pain, Edema, Irregular Heart Rate, Lightheadedness, Palpitations, Syncope, Chest Tightness, Other ABD/GI: No: Symptoms Reported, See HPI, Abdominal Distended, Abd. Pain w/ defecation, Blood Streaked Bowels, Constipated, Diarrhea, Difficulty Swallowing , Nausea, Poor Appetite, Poor Fluid Intake, Rectal Bleeding, Vomiting, Indigestion, Abdominal cramping, Tarry Stools, Other : No: Symptoms Reported, See HPI, Burning, Dysuria, Discharge, Frequency, Flank Pain, Hematuria, Incontinence, Pain, Urgency, Testicular Mass, Testicular Swelling, Lesions, Testicular Pain, Other Musculoskeletal: Yes: Joint Pain, Muscle Pain. No: Symptoms Reported, See HPI, Back Pain, Gout, Joint Swelling, Muscle Weakness, Neck Pain, Joint Stiffness, Other Integumentary: No: Symptoms Reported, See HPI, Bruising, Change in Color, Change in Hair/Nails, Dryness, Erythema, Flushing, Lesions, Lumps, Pallor, Pruritus, Rash, Sweating, Other Neurological: No: Symptoms reported, See HPI, Headache, Numbness, Paresthesia, Pre-Existing Deficit, Seizure, Tingling, Tremors, Weakness, Unsteady Gait, Ataxia, Dizziness, Other Psychiatric: No: Anxiety, Depression, Frequent Crying, Stressors, Sleep Pattern Change (Pt is n alcoholic), Emotional Problems, Mood Swings, Change in Appetite , Other *Physical Exam - Vital Signs Last Vital Signs Temp Pulse Resp BP Pulse Ox 97.3 F L 96 H 15 99/64 94 L 08/16/16 19:07 08/16/16 19:07 08/16/16 19:07 08/16/16 19:07 08/16/16 19:07 - Physical Exam General Appearance: Yes: Nourished, Disheveled, Alcohol on Breath, Intoxicated HEENT: positive: EOMI, DOUGLAS, Normal Voice Neck: positive: Trachea midline, Supple Respiratory/Chest: positive: Lungs Clear Cardiovascular: positive: Regular Rhythm, Regular Rate, S1, S2 Gastrointestinal/Abdominal: positive: Normal Bowel Sounds, Soft, Organomegaly Musculoskeletal: positive: Normal Inspection Extremity: positive: Normal Capillary Refill, Normal Inspection, Normal Range of Motion Integumentary: positive: Normal Color, Dry, Warm Neurologic: positive: Fully Oriented, Motor Strength 5/5 Medical Decision Making - Medical Decision Making 08/19/16 16:01 Pt has no specific complaints. He comes to the ER alcohol intoxicated. Known to us well. He is drunk and disheveled and comes to sleep here as it is cold outside. There are no muriel available in [facility] as I called to see if I could get him admitted to their detox program. He has not been there in over a month, almost 2 months ago. Pt to be discharged when he wakes up. *DC/Admit/Observation/Transfer Diagnosis at time of Disposition: Alcohol abuse - Discharge Dispostion Disposition: HOME
[2016-08-16] MEDS ORDERED: MAG HYDROX/AL HYDROX/SIMETH 30 ML UNIT-DOSE CUP ONE (22:11)
== END 2016-08-17 06:15 | disposition home or self-care (01) ==
LOC: JER 18:59
DX: Z53.21 Procedure and treatment not carried out due to patient leaving prior to being seen by health care provider (principal)
CPT/HCPCS: 99281-25

== ENCOUNTER 2016-08-19 19:51 | Emergency (ER) | payer OTHER ==
[2016-08-19 20:04] VITALS: BP 92/52; PULSE 96; TEMP 97.9; BMI 33.9
--- NOTE | 2016-08-19 20:06 | PDOC ---
Rapid Medical Evaluation Time Seen by Provider: 08/19/16 19:57 Medical Evaluation: Allergies Allergy/AdvReac Type Severity Reaction Status Date / Time No Known Allergies Allergy Verified 08/16/16 19:07 08/19/16 20:06 I have performed a brief in-person evaluation of this patient. The patient presents with a chief complaint of: etoh intox Pertinent physical exam findings: arousable but groggy and needs frequent queing I have ordered the following: none The patient will proceed to the ED for further evaluation.
--- NOTE | 2016-08-19 21:46 | PDOC ---
History of Present Illness - General Chief Complaint: Alcohol intoxication Stated Complaint: ALCOHOL INTOXICATION Time Seen by Provider: 08/19/16 19:57 History Source: Patient Exam Limitations: No Limitations - History of Present Illness Timing/Duration: 4-6 hours Past History - Past Medical History Allergies/Adverse Reactions: Allergies Allergy/AdvReac Type Severity Reaction Status Date / Time No Known Allergies Allergy Verified 08/19/16 20:01 Home Medications: Ambulatory Orders NK [No Known Home Medication] 07/12/16 Anemia: No Asthma: No Cancer: Yes (mesothelioma) Cardiac Disorders: No CVA: No COPD: No CHF: No Dementia: No Diabetes: No GI Disorders: No Disorders: No HTN: No Hypercholesterolemia: No Kidney Stones: No Liver Disease: No Psychiatric Problems: Yes (alcoholism) Suicide Attempt (Hx): No Seizures: No Thyroid Disease: No - Surgical History Abdominal Surgery: No Appendectomy: No Cardiac Surgery: No Cholecystectomy: No Lung Surgery: No Neurologic Surgery: No Orthopedic Surgery: No - Family Disease History Family Disease History: CA: Mother - Reproductive History Testicular Surgery: No - Immunization History TDAP Vaccination: Yes Immunization Up to Date: Yes - Psycho/Social/Smoking Cessation Hx Anxiety: No Suicidal Ideation: No Smoking Status: No Smoking History: Never smoked Have you smoked in the past 12 months: No Number of Cigarettes Smoked Daily: 0 Cigars Per Day: 0 Information on smoking cessation initiated: No 'Breaking Loose' booklet given: 07/29/16 Hx Alcohol Use: Yes Drug/Substance Use Hx: No Substance Use Type: Alcohol Hx Substance Use Treatment: Yes (DETOX ) *Physical Exam - Vital Signs Last Vital Signs Temp Pulse Resp BP Pulse Ox 97.9 F 96 H 20 92/52 93 L 08/19/16 20:01 08/19/16 20:01 08/19/16 20:01 08/19/16 20:01 08/19/16 20:01 *DC/Admit/Observation/Transfer Diagnosis at time of Disposition: Alcohol abuse - Discharge Dispostion Disposition: HOME Condition at time of disposition: Stable - Patient Instructions Printed Discharge Instructions: DI for Alcohol Abuse Progress Note - Progress Note Progress Note: History of Present Illness: 61-year-old male with PMH of mesothelioma with an extension hx of EtOH abuse with multiple ER visits and admissions due to EtOH abuse is biba for public intoxication. Patient at this time is noted to have AOB. Patient is not slurring his speech at this time but is unstable in gait and is intoxicated. Patient is A&Ox3 to deny f/c,n/v/d, constipation, lightheadedness, dizziness, guerra, blurry vision, visual disturbance, chest pain, sob, neck/back pain, abd pain , urinary symptoms; urgency/frequency/hesitancy, hematuria. Patient denies any sick contacts, travel outside the [place] or contact with any sick individuals who have been outside the [place]. Past Medical History: ETOH abuse, Mesothelioma Family History: Mother with cancer Social History: EtOH abuse Surgical history: Denies Allergies: No known drug allergies ROS: CONSTITUTIONAL: Absent: fever, chills, diaphoresis, generalized weakness, malaise, loss of appetite HEENT: Absent: rhinorrhea, nasal congestion, throat pain, throat swelling, difficulty swallowing, mouth swelling, ear pain, eye pain, visual Changes CARDIOVASCULAR: Absent: chest pain, loss of consciousness, palpitations, irregular heart rate, peripheral edema RESPIRATORY: Absent: cough, shortness of breath, dyspnea with exertion, orthopnea, wheezing, stridor, hemoptysis GASTROINTESTINAL: Absent: abdominal pain, abdominal distension, nausea, vomiting, diarrhea, constipation, melena, hematochezia GENITOURINARY: Absent: dysuria, frequency, urgency, hesitancy, hematuria, flank pain, genital pain MUSCULOSKELETAL: Absent: myalgia, arthralgia, joint swelling SKIN: Absent: rash, itching, pallor HEMATOLOGIC/IMMUNOLOGIC: Absent: easy bleeding, easy bruising, lymphadenopathy, frequent infections ENDOCRINE: Absent: unexplained weight gain, unexplained weight loss, heat intolerance, cold intolerance NEUROLOGIC: Absent: headache, focal weakness or paresthesias, dizziness, unsteady gait, seizure, mental status changes, bladder or bowel incontinence PSYCHIATRIC: Absent:+EtOH abuse, No depression or anxiety.anxiety, depression, suicidal or homicidal ideation, hallucinations. GENERAL: Well developed, well nourished. Awake and alert. No acute distress. HEENT: Normocephalic, atraumatic. PERRLA, EOMI. No conjunctival pallor. Sclera are non- icteric. Moist mucous membranes. Oropharynx is clear. NECK: Supple. Full ROM. No JVD. Carotid pulses 2+ and symmetric, without bruits. No thyromegaly. No lymphadenopathy. CARDIOVASCULAR: Regular rate and rhythm. No murmurs, rubs, or gallops. Distal pulses are 2+ and symmetric. PULMONARY: No evidence of respiratory distress. Lungs clear to auscultation bilaterally. No wheezing, rales or rhonchi. ABDOMINAL: Soft. Non-tender. Non-distended. No rebound or guarding. No organomegaly. Normoactive bowel sounds. MUSCULOSKELETAL Normal range of motion at all joints. No bony deformities or tenderness. No CVA tenderness. EXTREMITIES: No cyanosis. No clubbing. No edema. No calf tenderness. SKIN: Warm and dry. Normal capillary refill. No rashes. No jaundice. NEUROLOGICAL: Alert, awake, appropriate. Cranial nerves 2-12 intact. No deficits to light touch and temperature in face, upper extremities and lower extremities. No motor deficits in the in face, upper extremities and lower extremities. Normoreflexic in the upper and lower extremities. Normal speech. Toes are down- going bilaterally. Gait is normal without ataxia. PSYCHIATRIC: Cooperative. Good eye contact. Appropriate mood and affect. Medical Decision Making Patient reassessment: Patient has been noted to be walking and emergency department without difficulty or ataxic gait. Patient is able to communicate clearly and has straight clear mentation. I will discharge this patient to follow-up with outpatient PCP. Patient does not indicate desire at this time for detox. I discussed the physical exam findings, ancillary test results and final diagnoses with the patient. I answered all of the patient's questions. The patient was satisfied with the care received and felt comfortable with the discharge plan and treatment plan. The patient will call their primary care physician within 24 hours to arrange follow-up and will return to the Emergency Department with any new, persistent or worsening symptoms. Printed Discharge Instructions: DI for Alcohol Abuse Additional Instructions: Please follow-up with the included referral for PCP. Return to emergency room if shortness of breath, wheezing, fever greater than 101, chest pain, or fainting occurs.
--- NOTE | 2016-08-19 21:52 | PDOC ---
*Physical Exam - Vital Signs Last Vital Signs Temp Pulse Resp BP Pulse Ox 97.9 F 96 H 20 92/52 93 L 08/19/16 20:01 08/19/16 20:01 08/19/16 20:01 08/19/16 20:01 08/19/16 20:01 Medical Decision Making - Medical Decision Making 08/19/16 21:52 agree with care from APPLE Lassiter *DC/Admit/Observation/Transfer Diagnosis at time of Disposition: Alcohol abuse
== END 2016-08-20 06:23 | disposition home or self-care (01) ==
LOC: JER 19:51
DX: F10.120 Alcohol abuse with intoxication, uncomplicated (principal); C45.9 Mesothelioma, unspecified
CPT/HCPCS: 99283-25

== ENCOUNTER 2016-08-20 17:15 | Emergency (ER) | payer OTHER ==
--- NOTE | 2016-08-20 17:31 | PDOC ---
Rapid Medical Evaluation Chief Complaint: Alcohol intoxication Time Seen by Provider: 08/20/16 17:28 Medical Evaluation: I have performed a brief in-person evaluation of this patient. The patient presents with a chief complaint of: 61 yo M well known to this ED p/ w EtOH intox. No trauma. EMS was called by a bystander. Pertinent physical exam findings: +AOB, slurred speech. No focal neuro deficits. I have ordered the following: none The patient will proceed to the ED for further evaluation
[2016-08-20 17:36] VITALS: BP 124/80; PULSE 80; TEMP 97.4; BMI 33.9
--- NOTE | 2016-08-21 04:42 | PDOC ---
History of Present Illness - General Chief Complaint: Alcohol intoxication Stated Complaint: ALCOHOL INTOXICATION Time Seen by Provider: 08/20/16 17:28 History Source: Patient Exam Limitations: Intoxication - History of Present Illness Initial Comments: 08/20/16 17:58 61yo Male patient presents to ED intoxicated. Patient is well known to ED staff. He is here intoxicated nearly everyday. Patient has no complaints at this time. Patient requesting to just sleep. Past History - Travel Traveled outside of the country in the last 30 days: No Close contact w/someone who was outside of country & ill: No - Past Medical History Allergies/Adverse Reactions: Allergies Allergy/AdvReac Type Severity Reaction Status Date / Time No Known Allergies Allergy Verified 08/20/16 17:25 Home Medications: Ambulatory Orders NK [No Known Home Medication] 07/12/16 Anemia: No Asthma: No Cancer: Yes (mesothelioma) Cardiac Disorders: No CVA: No COPD: No CHF: No Dementia: No Diabetes: No GI Disorders: No Disorders: No HTN: No Hypercholesterolemia: No Kidney Stones: No Liver Disease: No Psychiatric Problems: Yes (alcoholism) Suicide Attempt (Hx): No Seizures: No Thyroid Disease: No - Surgical History Abdominal Surgery: No Appendectomy: No Cardiac Surgery: No Cholecystectomy: No Lung Surgery: No Neurologic Surgery: No Orthopedic Surgery: No - Family Disease History Family Disease History: CA: Mother - Reproductive History Testicular Surgery: No - Immunization History TDAP Vaccination: Yes Immunization Up to Date: Yes - Psycho/Social/Smoking Cessation Hx Anxiety: No Suicidal Ideation: No Smoking Status: No Smoking History: Never smoked Have you smoked in the past 12 months: No Number of Cigarettes Smoked Daily: 0 Cigars Per Day: 0 'Breaking Loose' booklet given: 07/29/16 Hx Alcohol Use: Yes Drug/Substance Use Hx: No Substance Use Type: Alcohol Hx Substance Use Treatment: Yes (DETOX ) Review of Systems - Review of Systems Able to Perform ROS?: Yes Is the patient limited Bahamian proficient: No Neurological: Yes: Other (Intoxicated) Psychiatric: Yes: Other (Intoxicated.) All Other Systems: Reviewed and Negative *Physical Exam - Vital Signs Last Vital Signs Temp Pulse Resp BP Pulse Ox 97.4 F L 80 18 124/80 93 L 08/20/16 17:30 08/20/16 17:30 08/20/16 17:30 08/20/16 17:30 08/20/16 17:30 - Physical Exam General Appearance: Yes: Disheveled, Alcohol on Breath, Intoxicated HEENT: positive: EOMI, DOUGLAS, Normal ENT Inspection, Normal Voice, Symmetrical, Pharynx Normal Neck: positive: Trachea midline, Supple. negative: Rigid, Stridor Respiratory/Chest: positive: Lungs Clear, Normal Breath Sounds. negative: Respiratory Distress, Labored Respiration, Rapid RR Cardiovascular: positive: Regular Rhythm, Regular Rate Gastrointestinal/Abdominal: positive: Normal Bowel Sounds, Soft. negative: Distended, Guarding, Rebound, Tenderness Musculoskeletal: positive: Normal Inspection. negative: CVA Tenderness Extremity: positive: Normal Capillary Refill, Normal Inspection, Normal Range of Motion Integumentary: positive: Normal Color, Dry, Warm. negative: Bruising Neurologic: positive: Fully Oriented, Alert, Normal Mood/Affect, Normal Response , Motor Strength 5/5 *DC/Admit/Observation/Transfer Diagnosis at time of Disposition: Intoxication - Discharge Dispostion Disposition: HOME Condition at time of disposition: Improved Admit: No - Patient Instructions Print Language: KUWAITI
--- NOTE | 2016-08-21 05:37 | PDOC ---
*Physical Exam - Vital Signs Last Vital Signs Temp Pulse Resp BP Pulse Ox 97.4 F L 80 18 124/80 93 L 08/20/16 17:30 08/20/16 17:30 08/20/16 17:30 08/20/16 17:30 08/20/16 17:30 Medical Decision Making - Medical Decision Making 08/21/16 05:36 agree with care from [facility]uy *DC/Admit/Observation/Transfer Diagnosis at time of Disposition: Intoxication - Discharge Dispostion Disposition: HOME Condition at time of disposition: Improved - Patient Instructions Print Language: SAUDI ARABIAN
== END 2016-08-21 06:25 | disposition home or self-care (01) ==
LOC: JER 17:15
DX: F10.120 Alcohol abuse with intoxication, uncomplicated (principal); Z85.89 Personal history of malignant neoplasm of other organs and systems
CPT/HCPCS: 99283-25

== ENCOUNTER 2016-08-21 15:43 | Emergency (ER) | payer OTHER ==
[2016-08-21 16:19] VITALS: BP 120/72; PULSE 100; TEMP 97.9; BMI 29.8
--- NOTE | 2016-08-21 16:19 | PDOC ---
Rapid Medical Evaluation Chief Complaint: Alcohol intoxication Time Seen by Provider: 08/21/16 16:18 Medical Evaluation: Allergies Allergy/AdvReac Type Severity Reaction Status Date / Time No Known Allergies Allergy Verified 08/21/16 16:14 Vital Signs Temp Pulse Resp BP Pulse Ox 97.9 F 100 H 19 120/72 96 08/21/16 16:15 08/21/16 16:15 08/21/16 16:15 08/21/16 16:15 08/21/16 16:15 08/21/16 16:18 I have performed a brief in-person evaluation of this patient. The patient presents with a chief complaint of: alcohol intoxication Pertinent physical exam findings:intoxicated male I have ordered the following: The patient will proceed to the ED for further evaluation.
== END 2016-08-21 17:16 | disposition left against medical advice (07) ==
LOC: JER 15:43
DX: Z53.21 Procedure and treatment not carried out due to patient leaving prior to being seen by health care provider (principal)
CPT/HCPCS: 99281-25

== ENCOUNTER 2016-08-21 21:41 | Emergency (ER) | payer OTHER ==
[2016-08-21 21:50] VITALS: BP 112/67; PULSE 93; TEMP 97; BMI 29.8
--- NOTE | 2016-08-21 23:03 | PDOC ---
History of Present Illness - General Chief Complaint: Alcohol intoxication Stated Complaint: ALCOHOL INTOXICATION Time Seen by Provider: 08/21/16 21:58 Past History - Past Medical History Allergies/Adverse Reactions: Allergies Allergy/AdvReac Type Severity Reaction Status Date / Time No Known Allergies Allergy Verified 08/21/16 21:49 Home Medications: Ambulatory Orders NK [No Known Home Medication] 07/12/16 Anemia: No Asthma: No Cancer: Yes (mesothelioma) Cardiac Disorders: No CVA: No COPD: No CHF: No Dementia: No Diabetes: No GI Disorders: No Disorders: No HTN: No Hypercholesterolemia: No Kidney Stones: No Liver Disease: No Psychiatric Problems: Yes (alcoholism) Suicide Attempt (Hx): No Seizures: No Thyroid Disease: No - Surgical History Abdominal Surgery: No Appendectomy: No Cardiac Surgery: No Cholecystectomy: No Lung Surgery: No Neurologic Surgery: No Orthopedic Surgery: No - Family Disease History Family Disease History: CA: Mother - Reproductive History Testicular Surgery: No - Immunization History TDAP Vaccination: Yes Immunization Up to Date: Yes - Psycho/Social/Smoking Cessation Hx Anxiety: No Suicidal Ideation: No Smoking Status: No Smoking History: Never smoked Have you smoked in the past 12 months: No Number of Cigarettes Smoked Daily: 0 Cigars Per Day: 0 'Breaking Loose' booklet given: 07/29/16 Hx Alcohol Use: Yes Drug/Substance Use Hx: No Substance Use Type: Alcohol Hx Substance Use Treatment: Yes (DETOX ) *Physical Exam - Vital Signs Last Vital Signs Temp Pulse Resp BP Pulse Ox 97 F L 93 H 18 112/67 96 08/21/16 21:49 08/21/16 21:49 08/21/16 21:49 08/21/16 21:49 08/21/16 21:49 *DC/Admit/Observation/Transfer Diagnosis at time of Disposition: Alcohol abuse - Discharge Dispostion Disposition: HOME Condition at time of disposition: Stable Progress Note - Progress Note Progress Note: History of Present Illness: 61-year-old male with PMH of mesothelioma with an extension hx of EtOH abuse with multiple ER visits and admissions due to EtOH abuse is biba for public intoxication. Patient at this time is noted to have AOB. Patient is not slurring his speech at this time but is unstable in gait and is intoxicated. Patient is A&Ox3 to deny f/c,n/v/d, constipation, lightheadedness, dizziness, guerra, blurry vision, visual disturbance, chest pain, sob, neck/back pain, abd pain , urinary symptoms; urgency/frequency/hesitancy, hematuria. Patient denies any sick contacts, travel outside the [place] or contact with any sick individuals who have been outside the [place]. Past Medical History: ETOH abuse, Mesothelioma Family History: Mother with cancer Social History: EtOH abuse Surgical history: Denies Allergies: No known drug allergies ROS: CONSTITUTIONAL: Absent: fever, chills, diaphoresis, generalized weakness, malaise, loss of appetite HEENT: Absent: rhinorrhea, nasal congestion, throat pain, throat swelling, difficulty swallowing, mouth swelling, ear pain, eye pain, visual Changes CARDIOVASCULAR: Absent: chest pain, loss of consciousness, palpitations, irregular heart rate, peripheral edema RESPIRATORY: Absent: cough, shortness of breath, dyspnea with exertion, orthopnea, wheezing, stridor, hemoptysis GASTROINTESTINAL: Absent: abdominal pain, abdominal distension, nausea, vomiting, diarrhea, constipation, melena, hematochezia GENITOURINARY: Absent: dysuria, frequency, urgency, hesitancy, hematuria, flank pain, genital pain MUSCULOSKELETAL: Absent: myalgia, arthralgia, joint swelling SKIN: Absent: rash, itching, pallor HEMATOLOGIC/IMMUNOLOGIC: Absent: easy bleeding, easy bruising, lymphadenopathy, frequent infections ENDOCRINE: Absent: unexplained weight gain, unexplained weight loss, heat intolerance, cold intolerance NEUROLOGIC: Absent: headache, focal weakness or paresthesias, dizziness, unsteady gait, seizure, mental status changes, bladder or bowel incontinence PSYCHIATRIC: Absent:+EtOH abuse, No depression or anxiety.anxiety, depression, suicidal or homicidal ideation, hallucinations. GENERAL: Well developed, well nourished. Awake and alert. No acute distress. HEENT: Normocephalic, atraumatic. PERRLA, EOMI. No conjunctival pallor. Sclera are non- icteric. Moist mucous membranes. Oropharynx is clear. NECK: Supple. Full ROM. No JVD. Carotid pulses 2+ and symmetric, without bruits. No thyromegaly. No lymphadenopathy. CARDIOVASCULAR: Regular rate and rhythm. No murmurs, rubs, or gallops. Distal pulses are 2+ and symmetric. PULMONARY: No evidence of respiratory distress. Lungs clear to auscultation bilaterally. No wheezing, rales or rhonchi. ABDOMINAL: Soft. Non-tender. Non-distended. No rebound or guarding. No organomegaly. Normoactive bowel sounds. MUSCULOSKELETAL Normal range of motion at all joints. No bony deformities or tenderness. No CVA tenderness. EXTREMITIES: No cyanosis. No clubbing. No edema. No calf tenderness. SKIN: Warm and dry. Normal capillary refill. No rashes. No jaundice. NEUROLOGICAL: Alert, awake, appropriate. Cranial nerves 2-12 intact. No deficits to light touch and temperature in face, upper extremities and lower extremities. No motor deficits in the in face, upper extremities and lower extremities. Normoreflexic in the upper and lower extremities. Normal speech. Toes are down- going bilaterally. Gait is normal without ataxia. PSYCHIATRIC: Cooperative. Good eye contact. Appropriate mood and affect. Medical Decision Making Patient reassessment: Patient has been noted to be walking and emergency department without difficulty or ataxic gait. Patient is able to communicate clearly and has straight clear mentation. I will discharge this patient to follow-up with outpatient PCP. Patient does not indicate desire at this time for detox. I discussed the physical exam findings, ancillary test results and final diagnoses with the patient. I answered all of the patient's questions. The patient was satisfied with the care received and felt comfortable with the discharge plan and treatment plan. The patient will call their primary care physician within 24 hours to arrange follow-up and will return to the Emergency Department with any new, persistent or worsening symptoms. Printed Discharge Instructions: DI for Alcohol Abuse Additional Instructions: Please follow-up with the included referral for PCP. Return to emergency room if shortness of breath, wheezing, fever greater than 101, chest pain, or fainting occurs.
== END 2016-08-22 06:32 | disposition home or self-care (01) ==
LOC: JER 21:41
DX: F10.220 Alcohol dependence with intoxication, uncomplicated (principal); C45.9 Mesothelioma, unspecified
CPT/HCPCS: 99281-25

== ENCOUNTER 2016-08-22 15:05 | Emergency (ER) | payer OTHER ==
[2016-08-22 15:10] VITALS: TEMP 98.3; BMI 29.8
--- NOTE | 2016-08-22 15:10 | PDOC ---
Rapid Medical Evaluation Time Seen by Provider: 08/22/16 15:07 Medical Evaluation: Allergies Allergy/AdvReac Type Severity Reaction Status Date / Time No Known Allergies Allergy Verified 08/21/16 21:49 08/22/16 15:08 I have performed a brief in-person evaluation of this patient. The patient presents with a chief complaint of: public intoxication at the public library. No complaints Pertinent physical exam findings: VSS, intoxicated and crying I have ordered the following: none The patient will proceed to the ED for further evaluation.
--- NOTE | 2016-08-22 16:16 | PDOC ---
History of Present Illness <Jacob Bertrand - Last Filed: 08/22/16 16:15> - History of Present Illness Initial Comments: 08/22/16 18:09 Patient is a 61 year old male with significant medical hx of ETOH abuse, public intoxication, and mesothelioma who has been brought to the ED after being found intoxicated in a library. The patient states that he is homeless and is hungry. He does not offer any complaints. <Adelina Corrales - Last Filed: 08/22/16 18:09> <Lorri Kumar - Last Filed: 08/23/16 23:41> - General Chief Complaint: Alcohol intoxication Stated Complaint: INTOX Time Seen by Provider: 08/22/16 15:07 Past History - Past Medical History Anemia: No Asthma: No Cancer: Yes (mesothelioma) Cardiac Disorders: No CVA: No COPD: No CHF: No Dementia: No Diabetes: No GI Disorders: No Disorders: No HTN: No Hypercholesterolemia: No Kidney Stones: No Liver Disease: No Psychiatric Problems: Yes (alcoholism) Suicide Attempt (Hx): No Seizures: No Thyroid Disease: No - Surgical History Abdominal Surgery: No Appendectomy: No Cardiac Surgery: No Cholecystectomy: No Lung Surgery: No Neurologic Surgery: No Orthopedic Surgery: No - Family Disease History Family Disease History: CA: Mother - Reproductive History Testicular Surgery: No - Immunization History TDAP Vaccination: Yes Immunization Up to Date: Yes - Psycho/Social/Smoking Cessation Hx Anxiety: No Suicidal Ideation: No Smoking Status: No Smoking History: Never smoked Have you smoked in the past 12 months: No Number of Cigarettes Smoked Daily: 0 Cigars Per Day: 0 Information on smoking cessation initiated: No 'Breaking Loose' booklet given: 07/29/16 Hx Alcohol Use: No Drug/Substance Use Hx: No Substance Use Type: Alcohol Hx Substance Use Treatment: Yes ([facility] ) <Jacob Bertrand - Last Filed: 08/22/16 16:15> <Adelina Corrales - Last Filed: 08/22/16 18:09> <Lorri Kumar - Last Filed: 08/23/16 23:41> - Past Medical History Allergies/Adverse Reactions: Allergies Allergy/AdvReac Type Severity Reaction Status Date / Time No Known Allergies Allergy Verified 08/22/16 15:08 Home Medications: Ambulatory Orders NK [No Known Home Medication] 07/12/16 Review of Systems - Review of Systems Comments:: 08/22/16 18:14 GENERAL/CONSTITUTIONAL: Intoxicated. No fever or chills. No weakness. HEAD, EYES, EARS, NOSE AND THROAT: No change in vision. No ear pain or discharge. No sore throat. CARDIOVASCULAR: No chest pain or shortness of breath. RESPIRATORY: No cough, wheezing, or hemoptysis. GASTROINTESTINAL: No nausea, vomiting, diarrhea or constipation. GENITOURINARY: No dysuria, frequency, or change in urination. MUSCULOSKELETAL: No joint or muscle swelling or pain. No neck or back pain. SKIN: No rash NEUROLOGIC: No headache, vertigo, loss of consciousness, or change in strength/ sensation. <Adelina Corrales - Last Filed: 08/22/16 18:09> *Physical Exam - Vital Signs Last Vital Signs Temp Pulse Resp BP Pulse Ox 98.3 F 73 18 123/82 95 08/22/16 15:08 08/22/16 15:08 08/22/16 15:08 08/22/16 15:08 08/22/16 15:08 <Jacob Bertrand - Last Filed: 08/22/16 16:15> - Vital Signs Last Vital Signs Temp Pulse Resp BP Pulse Ox 98.3 F 73 18 123/82 95 08/22/16 15:08 08/22/16 15:08 08/22/16 15:08 08/22/16 15:08 08/22/16 15:08 - Physical Exam Comments: 08/22/16 18:15 GENERAL: Intoxicated. Awake, alert, in no acute distress HEAD: No signs of trauma EYES: PERRLA, EOMI, sclera anicteric, conjunctiva clear ENT: Auricles normal inspection, hearing grossly normal, nares patent, oropharynx clear without exudates. Moist mucosa NECK: Normal ROM, supple, no lymphadenopathy, JVD, or masses LUNGS: Breath sounds equal, clear to auscultation bilaterally. No wheezes, and no crackles HEART: Regular rate and rhythm, normal S1 and S2, no murmurs, rubs or gallops ABDOMEN: Soft, nontender, normoactive bowel sounds. No guarding, no rebound. No masses EXTREMITIES: Normal range of motion, no edema. No clubbing or cyanosis. No cords, erythema, or tenderness NEUROLOGICAL: Cranial nerves II through XII grossly intact. Normal speech, normal gait SKIN: Warm, Dry, normal turgor, no rashes or lesions noted. ENDOCRINE: No increased thirst. No abnormal weight change. HEMATOLOGIC/LYMPHATIC: No anemia, easy bleeding, or history of blood clots. ALLERGIC/IMMUNOLOGIC: No hives or skin allergy. <Adelina Corrales - Last Filed: 08/22/16 18:09> - Vital Signs Last Vital Signs Temp Pulse Resp BP Pulse Ox 98.3 F 73 18 123/82 95 08/22/16 15:08 08/22/16 15:08 08/22/16 15:08 08/22/16 15:08 08/22/16 15:08 <Lorri Kumar - Last Filed: 08/23/16 23:41> Medical Decision Making - Medical Decision Making 08/23/16 23:40 Pt was signed out to me. After 10 hrs in the ER, he was awake and alert and agreeing to detox. I gave him librium and sent julio cesar to detox. Accepted by the [facility] at [facility]. Pt was sent there with our security guards. <Lorri Kumar - Last Filed: 08/23/16 23:41> *DC/Admit/Observation/Transfer - Attestations Physician Attestion: 08/22/16 16:16 I, Dr. Jacob Bertrand, attest that this document has been prepared under my direction and personally reviewed by me in its entirety. I further attest, that it accurately reflects all work, treatment, procedures and medical decision -making performed by me. <Jacob Bertrand - Last Filed: 08/22/16 16:15> - Attestations Scribe Attestion: 08/22/16 18:15 Documentation prepared by Adelina Corrales, acting as medical billing specialist for Jacob Bertrand MD. <Adelina Corrales - Last Filed: 08/22/16 18:09> - Discharge Dispostion Admit: No <Lorri Kumar - Last Filed: 08/23/16 23:41> Diagnosis at time of Disposition: Alcohol abuse, Alcohol intoxication - Discharge Dispostion Disposition: I.P. ALCOHOL/SUBS ABUSE REHAB Condition at time of disposition: Stable
[2016-08-23] MEDS ORDERED: chlordiazePOXIDE HCL 25 MG CAPSULE PO ONE (03:24)
[2016-08-23 03:47] VITALS: BP 149/104; PULSE 78
== END 2016-08-23 03:39 | disposition other institution (70) ==
LOC: JER 15:05
DX: F10.220 Alcohol dependence with intoxication, uncomplicated (principal); C45.9 Mesothelioma, unspecified; Z59.0 Homelessness
CPT/HCPCS: 99283-25

== ENCOUNTER 2016-08-28 15:01 | Emergency (ER) | payer OTHER ==
--- NOTE | 2016-08-28 15:37 | PDOC ---
History of Present Illness - General History Source: Patient Exam Limitations: Intoxication - History of Present Illness Initial Comments: 08/28/16 15:58 61 yo M with significant past medical history of alcohol abuse who is well known to this ER presents today intoxicated. The patient was found in the streets publicly intoxicated and was brought into the ER. The patient has no complaints at this time. History is limited secondary to the patient being intoxicated. <Kathie Gatica - Last Filed: 08/28/16 18:30> <Jacob Bertrand - Last Filed: 11/18/16 11:08> - General Chief Complaint: Alcohol intoxication Stated Complaint: INTOX Time Seen by Provider: 08/28/16 15:36 Past History <Kathie Gatica - Last Filed: 08/28/16 18:30> - Past Medical History Anemia: No Asthma: No Cancer: Yes (mesothelioma) Cardiac Disorders: No CVA: No COPD: No CHF: No Dementia: No Diabetes: No GI Disorders: No Disorders: No HTN: No Hypercholesterolemia: No Kidney Stones: No Liver Disease: No Psychiatric Problems: Yes (alcoholism) Suicide Attempt (Hx): No Seizures: No Thyroid Disease: No - Surgical History Abdominal Surgery: No Appendectomy: No Cardiac Surgery: No Cholecystectomy: No Lung Surgery: No Neurologic Surgery: No Orthopedic Surgery: No - Family Disease History Family Disease History: CA: Mother - Reproductive History Testicular Surgery: No - Immunization History TDAP Vaccination: Yes Immunization Up to Date: Yes - Psycho/Social/Smoking Cessation Hx Anxiety: No Suicidal Ideation: No Smoking Status: No Smoking History: Never smoked Have you smoked in the past 12 months: No Number of Cigarettes Smoked Daily: 0 Cigars Per Day: 0 'Breaking Loose' booklet given: 08/23/16 Hx Alcohol Use: Yes Drug/Substance Use Hx: No Substance Use Type: Alcohol Hx Substance Use Treatment: Yes ([facility]) <Jacob Bertrand - Last Filed: 11/18/16 11:08> - Past Medical History Allergies/Adverse Reactions: Allergies Allergy/AdvReac Type Severity Reaction Status Date / Time Fish Containing Products Allergy Verified 08/28/16 17:56 Home Medications: Ambulatory Orders NK [No Known Home Medication] 10/15/16 Review of Systems - Review of Systems Able to Perform ROS?: No Comments:: 08/28/16 15:56 Unable to attain-- patient is intoxicated. <Kathie Gatica - Last Filed: 08/28/16 18:30> *Physical Exam - Vital Signs Last Vital Signs Temp Pulse Resp BP Pulse Ox 97.4 F L 105 H 22 115/66 85 L 08/28/16 15:32 08/28/16 15:32 08/28/16 15:32 08/28/16 15:32 08/28/16 15:32 - Physical Exam Comments: 08/28/16 15:56 GENERAL: The patient is intoxicated, poor hygeine HEAD: Normocephalic, atraumatic. EYES: Extraocular movements intact, sclera anicteric, conjunctiva clear. ENT: Normal voice. Moist mucous membranes. NECK: Normal range of motion, supple LUNGS: Breath sounds equal, clear to auscultation bilaterally. No wheezes, no rhonchi, no rales. HEART: Regular rate and rhythm ABDOMEN: Soft, nontender EXTREMITIES: Normal range of motion NEUROLOGICAL: No facial assymetry, Normal speech, moving all 4 extremities symmetrically <Kathie Gatica - Last Filed: 08/28/16 18:30> ED Treatment Course - RADIOLOGY Radiology Studies Ordered: 08/28/16 18:30 CXR: Reviewed and interpreted by Dr. Bertrand. Impression: Patient took a poor inspiration, however CXR appears stable and unchanged from August 23. <Kathie Gatica - Last Filed: 08/28/16 18:30> *DC/Admit/Observation/Transfer - Attestations Scribe Attestion: 08/28/16 15:57 Documentation prepared by Kathie Gatica, acting as medical voucher clerk for Jacob Bertrand DO. <EnKathie - Last Filed: 08/28/16 18:30> - Attestations Physician Attestion: 08/28/16 15:37 I, Dr. Jacob Bertrand, attest that this document has been prepared under my direction and personally reviewed by me in its entirety. I further attest, that it accurately reflects all work, treatment, procedures and medical decision -making performed by me. <Jacob Bertrand - Last Filed: 11/18/16 11:08> Diagnosis at time of Disposition: Alcohol abuse, Alcohol intoxication - Discharge Dispostion Disposition: HOME Condition at time of disposition: Improved - Patient Instructions Printed Discharge Instructions: DI for Alcohol Abuse
[2016-08-28 15:46] VITALS: BP 115/66; TEMP 97.4; BMI 30.7
[2016-08-28] MEDS ORDERED: ALBUTEROL SO4 2.5/IPRATROPIUM 0.5 INH SOL 3 ML VIAL.NEB. NEB ONE (15:58)
[2016-08-28 19:00] VITALS: PULSE 98
--- NOTE | 2016-08-29 05:37 | PDOC ---
*Physical Exam - Vital Signs Last Vital Signs Temp Pulse Resp BP Pulse Ox 97.4 F L 98 H 22 115/66 96 08/28/16 15:32 08/28/16 18:15 08/28/16 15:32 08/28/16 15:32 08/28/16 18:15 - Physical Exam General Appearance: No: Apparent Distress HEENT: positive: Normal ENT Inspection Respiratory/Chest: positive: Lungs Clear, Normal Breath Sounds Cardiovascular: positive: Regular Rhythm, Regular Rate Neurologic: positive: Fully Oriented, Alert, Normal Mood/Affect, Normal Response , Motor Strength 10/17 ED Treatment Course - Medications Given in the ED: ED Medications Discontinued Medications Generic Name Dose Route Start Last Admin Trade Name Freq PRN Reason Stop Dose Admin Albuterol/Ipratropium 1 amp 08/28/16 15:58 08/28/16 17:00 Duoneb - NEB 08/28/16 15:59 1 amp ONCE ONE Administration *DC/Admit/Observation/Transfer Diagnosis at time of Disposition: Alcohol abuse, Alcohol intoxication - Discharge Dispostion Disposition: HOME Condition at time of disposition: Improved - Patient Instructions Printed Discharge Instructions: DI for Alcohol Abuse
== END 2016-08-29 06:11 | disposition home or self-care (01) ==
LOC: JER 15:01
PROC: 3E0F7GC Introduction of Other Therapeutic Substance into Respiratory Tract, Via Natural or Artificial Opening (ICD-10-PCS; principal; 2016-08-28)
DX: F10.220 Alcohol dependence with intoxication, uncomplicated (principal)
CPT/HCPCS: 71010-TC; 99284-25

== ENCOUNTER 2016-08-29 22:04 | Emergency (ER) | payer OTHER ==
[2016-08-29 22:37] VITALS: BP 109/65; PULSE 84; TEMP 98.6; BMI 31.4
--- NOTE | 2016-08-29 22:48 | PDOC ---
[id number] - General Chief Complaint: Alcohol intoxication Stated Complaint: ALCOHOL INTOXICATION Time Seen by Provider: 08/29/16 22:29 Past History - Past Medical History Anemia: No Asthma: No Cancer: Yes (mesothelioma) Cardiac Disorders: No CVA: No COPD: No CHF: No Dementia: No Diabetes: No GI Disorders: No Disorders: No HTN: No Hypercholesterolemia: No Kidney Stones: No Liver Disease: No Psychiatric Problems: Yes (alcoholism) Suicide Attempt (Hx): No Seizures: No Thyroid Disease: No - Surgical History Abdominal Surgery: No Appendectomy: No Cardiac Surgery: No Cholecystectomy: No Lung Surgery: No Neurologic Surgery: No Orthopedic Surgery: No - Family Disease History Family Disease History: CA: Mother - Reproductive History Testicular Surgery: No - Immunization History TDAP Vaccination: Yes Immunization Up to Date: Yes - Psycho/Social/Smoking Cessation Hx Anxiety: No Suicidal Ideation: No Smoking Status: No Smoking History: Never smoked Have you smoked in the past 12 months: No Number of Cigarettes Smoked Daily: 0 Cigars Per Day: 0 Information on smoking cessation initiated: No 'Breaking Loose' booklet given: 08/23/16 Hx Alcohol Use: Yes Drug/Substance Use Hx: No Substance Use Type: Alcohol Hx Substance Use Treatment: Yes ([facility]) <Tahir Lassiter - Last Filed: 08/30/16 01:15> <Umer [place] - Last Filed: 09/05/16 22:31> - Past Medical History Allergies/Adverse Reactions: Allergies Allergy/AdvReac Type Severity Reaction Status Date / Time Fish Containing Products Allergy Verified 08/29/16 22:35 Home Medications: Ambulatory Orders NK [No Known Home Medication] 07/12/16 *Physical Exam - Vital Signs Last Vital Signs Temp Pulse Resp BP Pulse Ox 98.6 F 84 18 109/65 100 08/29/16 22:05 08/29/16 22:05 08/29/16 22:05 08/29/16 22:05 08/29/16 22:05 <Tahir Lassiter - Last Filed: 08/30/16 01:15> - Vital Signs Last Vital Signs Temp Pulse Resp BP Pulse Ox 98.6 F 84 18 109/65 100 08/29/16 22:05 08/29/16 22:05 08/29/16 22:05 08/29/16 22:05 08/29/16 22:05 <Umer [place] - Last Filed: 09/05/16 22:31> Medical Decision Making - Medical Decision Making 09/05/16 22:31 ED Attending: I have been available for discussion by midlevel provider and am cosigning note for this purpose; I have discussed the case with the MLP as needed. <Umer [place] - Last Filed: 09/05/16 22:31> *DC/Admit/Observation/Transfer <Tahir Lassiter - Last Filed: 08/30/16 01:15> - Discharge Dispostion Admit: No Decision to Admit order Date/Time: 08/30/16 01:12 <Umer [place] - Last Filed: 09/05/16 22:31> Diagnosis at time of Disposition: Alcohol abuse - Discharge Dispostion Disposition: HOME Condition at time of disposition: Stable - Patient Instructions Printed Discharge Instructions: DI for Alcohol Abuse Additional Instructions: Please follow up with your PMD within the next 24 hours. Progress Note - Progress Note Progress Note: History of Present Illness: 61-year-old male with PMH of mesothelioma with an extension hx of EtOH abuse with multiple ER visits and admissions due to EtOH abuse is biba for public intoxication. Patient at this time is noted to have AOB. Patient is not slurring his speech at this time but is unstable in gait and is intoxicated. Patient is A&Ox3 to deny f/c,n/v/d, constipation, lightheadedness, dizziness, guerra, blurry vision, visual disturbance, chest pain, sob, neck/back pain, abd pain , urinary symptoms; urgency/frequency/hesitancy, hematuria. Patient denies any sick contacts, travel outside the [place] or contact with any sick individuals who have been outside the [place]. Past Medical History: ETOH abuse, Mesothelioma Family History: Mother with cancer Social History: EtOH abuse Surgical history: Denies Allergies: No known drug allergies ROS: CONSTITUTIONAL: Absent: fever, chills, diaphoresis, generalized weakness, malaise, loss of appetite HEENT: Absent: rhinorrhea, nasal congestion, throat pain, throat swelling, difficulty swallowing, mouth swelling, ear pain, eye pain, visual Changes CARDIOVASCULAR: Absent: chest pain, loss of consciousness, palpitations, irregular heart rate, peripheral edema RESPIRATORY: Absent: cough, shortness of breath, dyspnea with exertion, orthopnea, wheezing, stridor, hemoptysis GASTROINTESTINAL: Absent: abdominal pain, abdominal distension, nausea, vomiting, diarrhea, constipation, melena, hematochezia GENITOURINARY: Absent: dysuria, frequency, urgency, hesitancy, hematuria, flank pain, genital pain MUSCULOSKELETAL: Absent: myalgia, arthralgia, joint swelling SKIN: Absent: rash, itching, pallor HEMATOLOGIC/IMMUNOLOGIC: Absent: easy bleeding, easy bruising, lymphadenopathy, frequent infections ENDOCRINE: Absent: unexplained weight gain, unexplained weight loss, heat intolerance, cold intolerance NEUROLOGIC: Absent: headache, focal weakness or paresthesias, dizziness, unsteady gait, seizure, mental status changes, bladder or bowel incontinence PSYCHIATRIC: Absent:+EtOH abuse, No depression or anxiety.anxiety, depression, suicidal or homicidal ideation, hallucinations. GENERAL: Well developed, well nourished. Awake and alert. No acute distress. HEENT: Normocephalic, atraumatic. PERRLA, EOMI. No conjunctival pallor. Sclera are non- icteric. Moist mucous membranes. Oropharynx is clear. NECK: Supple. Full ROM. No JVD. Carotid pulses 2+ and symmetric, without bruits. No thyromegaly. No lymphadenopathy. CARDIOVASCULAR: Regular rate and rhythm. No murmurs, rubs, or gallops. Distal pulses are 2+ and symmetric. PULMONARY: No evidence of respiratory distress. Lungs clear to auscultation bilaterally. No wheezing, rales or rhonchi. ABDOMINAL: Soft. Non-tender. Non-distended. No rebound or guarding. No organomegaly. Normoactive bowel sounds. MUSCULOSKELETAL Normal range of motion at all joints. No bony deformities or tenderness. No CVA tenderness. EXTREMITIES: No cyanosis. No clubbing. No edema. No calf tenderness. SKIN: Warm and dry. Normal capillary refill. No rashes. No jaundice. NEUROLOGICAL: Alert, awake, appropriate. Cranial nerves 2-12 intact. No deficits to light touch and temperature in face, upper extremities and lower extremities. No motor deficits in the in face, upper extremities and lower extremities. Normoreflexic in the upper and lower extremities. Normal speech. Toes are down- going bilaterally. Gait is normal without ataxia. PSYCHIATRIC: Cooperative. Good eye contact. Appropriate mood and affect. Medical Decision Making Patient reassessment: Patient has been noted to be walking and emergency department without difficulty or ataxic gait. Patient is able to communicate clearly and has straight clear mentation. I will discharge this patient to follow-up with outpatient PCP. Patient does not indicate desire at this time for detox. I discussed the physical exam findings, ancillary test results and final diagnoses with the patient. I answered all of the patient's questions. The patient was satisfied with the care received and felt comfortable with the discharge plan and treatment plan. The patient will call their primary care physician within 24 hours to arrange follow-up and will return to the Emergency Department with any new, persistent or worsening symptoms. Printed Discharge Instructions: DI for Alcohol Abuse Additional Instructions: Please follow-up with the included referral for PCP. Return to emergency room if shortness of breath, wheezing, fever greater than 101, chest pain, or fainting occurs. <Tahir Lassiter - Last Filed: 08/30/16 01:15>
== END 2016-08-30 01:20 | disposition home or self-care (01) ==
LOC: JER 22:04
DX: F10.120 Alcohol abuse with intoxication, uncomplicated (principal); C45.9 Mesothelioma, unspecified
CPT/HCPCS: 99281-25

== ENCOUNTER → 2016-08-31 | Emergency (ER) | payer OTHER ==
[2016-08-31 19:57] VITALS: BP 137/82; PULSE 99; TEMP 98; BMI 30.7
== END | disposition left against medical advice (07) ==
LOC: JER 19:47
DX: Z53.21 Procedure and treatment not carried out due to patient leaving prior to being seen by health care provider (principal)
CPT/HCPCS: 99281-25

== ENCOUNTER 2016-09-02 17:53 | Emergency (ER) | payer OTHER ==
[2016-09-02 18:24] VITALS: TEMP 98.3; BMI 34.8
--- NOTE | 2016-09-02 19:47 | PDOC ---
*Physical Exam - Vital Signs Last Vital Signs Temp Pulse Resp BP Pulse Ox 98.3 F 94 H 18 110/65 91 L 09/02/16 18:08 09/02/16 18:08 09/02/16 18:08 09/02/16 18:08 09/02/16 18:08 Medical Decision Making - Medical Decision Making 09/02/16 19:46 agree with care from MICHAEL Rehman *DC/Admit/Observation/Transfer Diagnosis at time of Disposition: Alcohol intoxication - Discharge Dispostion Disposition: HOME Condition at time of disposition: Stable - Patient Instructions Printed Discharge Instructions: DI for Alcohol Abuse
--- NOTE | 2016-09-02 19:58 | PDOC ---
History of Present Illness - General Chief Complaint: Alcohol intoxication Stated Complaint: ALCOHOL INTOXICATION Time Seen by Provider: 09/02/16 19:20 - History of Present Illness Initial Comments: 09/02/16 19:36 CHIEF COMPLAINT: HISTORY OF PRESENT ILLNESS: 61 yo M with significant PMH of etOH abuse, well known to this ER, presents was brought in today after being witnessed publicly intoxicated. He has no complaints at this time. History is limited secondary to the patient being intoxicated. PAST MEDICAL HISTORY: Denies past medical history FAMILY HISTORY: Denies SOCIAL HISTORY: etOH abuse. SURGICAL HISTORY: Denies ALLERGIES: fish products REVIEW OF SYSTEMS - unreliable secondary to intoxication PHYSICAL EXAM General Appearance: Disheveled, foul-smelling, intoxicated. HEENT: EOMI, PERRLA, normal ENT inspection, normal voice, TMs normal, pharynx normal. No conjunctival pallor. No photophobia, scleral icterus. Neck: Supple. Trachea midline. No tenderness, rigidity, carotid bruit, stridor , lymphadenopathy, or thyromegaly. Respiratory/Chest: Lungs CTAB. No shortness of breath, chest tenderness, respiratory distress, accessory muscle use. No crackles, rales, rhonchi, stridor , wheezing, dullness Cardiovascular: RRR. S1, S2. No JVD, murmur, bradycardia, tachycardia. Vascular Pulses: Dorsalis-Pedis (R): 2+, Dorsalis-Pedis (L): 2+ Gastrointestinal/Abdominal: Normal bowel sounds. Abdomen soft, non-distended. No tenderness or rebound tenderness. No organomegaly, pulsatile mass, guarding , hernia, hepatomegaly, splenomegaly. Lymphatic: No adenopathy, tenderness. Musculoskeletal/Extremities: Normal inspection. FROM of all extremities, normal capillary refill. Pelvis Stable. No CVA tenderness. No tenderness to extremities, pedal edema, swelling, erythema or deformity. Integumentary: Appropriate color, dry, warm. No cyanosis, erythema, jaundice or rash Neurologic: concrete inspector II-XII intact. Fully oriented, alert. Appropriate mood/affect. Motor strength 5/5. No appreciable EOM palsy, facial droop or sensory deficit. Past History - Past Medical History Allergies/Adverse Reactions: Allergies Allergy/AdvReac Type Severity Reaction Status Date / Time Fish Containing Products Allergy Verified 08/31/16 19:55 Home Medications: Ambulatory Orders NK [No Known Home Medication] 07/12/16 Anemia: No Asthma: No Cancer: Yes (mesothelioma) Cardiac Disorders: No CVA: No COPD: No CHF: No Dementia: No Diabetes: No GI Disorders: No Disorders: No HTN: No Hypercholesterolemia: No Kidney Stones: No Liver Disease: No Psychiatric Problems: Yes (alcoholism) Suicide Attempt (Hx): No Seizures: No Thyroid Disease: No - Surgical History Abdominal Surgery: No Appendectomy: No Cardiac Surgery: No Cholecystectomy: No Lung Surgery: No Neurologic Surgery: No Orthopedic Surgery: No - Family Disease History Family Disease History: CA: Mother - Reproductive History Testicular Surgery: No - Immunization History TDAP Vaccination: Yes Immunization Up to Date: Yes - Psycho/Social/Smoking Cessation Hx Anxiety: No Suicidal Ideation: No Smoking Status: No Smoking History: Never smoked Have you smoked in the past 12 months: No Number of Cigarettes Smoked Daily: 0 Cigars Per Day: 0 Information on smoking cessation initiated: No 'Breaking Loose' booklet given: 08/23/16 Hx Alcohol Use: No Drug/Substance Use Hx: No Substance Use Type: Alcohol Hx Substance Use Treatment: Yes ([facility]) *Physical Exam - Vital Signs Last Vital Signs Temp Pulse Resp BP Pulse Ox 98.3 F 94 H 18 110/65 91 L 09/02/16 18:08 09/02/16 18:08 09/02/16 18:08 09/02/16 18:08 09/02/16 18:08 *DC/Admit/Observation/Transfer Diagnosis at time of Disposition: Alcohol intoxication - Discharge Dispostion Disposition: HOME Condition at time of disposition: Stable Admit: No - Patient Instructions Printed Discharge Instructions: DI for Alcohol Abuse
[2016-09-03 02:38] VITALS: BP 99/63; PULSE 86
== END 2016-09-03 06:28 | disposition home or self-care (01) ==
LOC: JER 17:53
DX: F10.120 Alcohol abuse with intoxication, uncomplicated (principal); C45.9 Mesothelioma, unspecified
CPT/HCPCS: 99283-25

== ENCOUNTER 2016-09-07 19:54 | Emergency (ER) | payer OTHER ==
[2016-09-07 20:59] VITALS: BMI 32.5
--- NOTE | 2016-09-07 22:38 | PDOC ---
History of Present Illness - History of Present Illness Initial Comments: 09/08/16 00:37 Patient is a 61 year old male, well known to the ED, with significant medical hx of mesothelioma, COPD, and ETOH abuse who has been brought to the ED via EMS for intoxication. Patient was somnolent upon interview and doesnt offer any complaints. <Adelina Corrales - Last Filed: 09/08/16 00:36> <Uemr [place] - Last Filed: 09/08/16 05:56> - General Chief Complaint: Alcohol intoxication Stated Complaint: INTOX Past History <AntoniEfraina - Last Filed: 09/08/16 00:36> - Past Medical History Anemia: No Asthma: No Cancer: Yes (mesothelioma) Cardiac Disorders: No CVA: No COPD: No CHF: No Dementia: No Diabetes: No GI Disorders: No Disorders: No HTN: No Hypercholesterolemia: No Kidney Stones: No Liver Disease: No Psychiatric Problems: Yes (alcoholism) Suicide Attempt (Hx): No Seizures: No Thyroid Disease: No - Surgical History Abdominal Surgery: No Appendectomy: No Cardiac Surgery: No Cholecystectomy: No Lung Surgery: No Neurologic Surgery: No Orthopedic Surgery: No - Family Disease History Family Disease History: CA: Mother - Reproductive History Testicular Surgery: No - Immunization History TDAP Vaccination: Yes Immunization Up to Date: Yes - Psycho/Social/Smoking Cessation Hx Anxiety: No Suicidal Ideation: No Smoking Status: No Smoking History: Never smoked Have you smoked in the past 12 months: No Number of Cigarettes Smoked Daily: 0 Cigars Per Day: 0 'Breaking Loose' booklet given: 08/23/16 Hx Alcohol Use: Yes Drug/Substance Use Hx: No Substance Use Type: Alcohol Hx Substance Use Treatment: Yes ([facility]) <Umer [place] - Last Filed: 09/08/16 05:56> - Past Medical History Allergies/Adverse Reactions: Allergies Allergy/AdvReac Type Severity Reaction Status Date / Time Fish Containing Products Allergy Verified 09/07/16 20:44 Home Medications: Ambulatory Orders NK [No Known Home Medication] 07/12/16 Review of Systems - Review of Systems Comments:: 09/08/16 00:37 GENERAL/CONSTITUTIONAL: No fever or chills. No weakness. HEAD, EYES, EARS, NOSE AND THROAT: No change in vision. No ear pain or discharge. No sore throat. CARDIOVASCULAR: No chest pain or shortness of breath. RESPIRATORY: No cough, wheezing, or hemoptysis. GASTROINTESTINAL: No nausea, vomiting, diarrhea or constipation. GENITOURINARY: No dysuria, frequency, or change in urination. MUSCULOSKELETAL: No joint or muscle swelling or pain. No neck or back pain. SKIN: No rash NEUROLOGIC: No headache, vertigo, loss of consciousness, or change in strength/ sensation. <Adelina Corrales - Last Filed: 09/08/16 00:36> *Physical Exam - Vital Signs Last Vital Signs Temp Pulse Resp BP Pulse Ox 97.6 F 100 H 18 112/63 94 L 09/07/16 22:47 09/07/16 22:47 09/07/16 22:47 09/07/16 22:47 09/07/16 22:47 - Physical Exam Comments: 09/08/16 00:37 GENERAL: Unkempt, malodorous, snoring, somnolent, alcohol on breath, in no acute distress HEAD: No signs of trauma EYES: PERRLA, EOMI, sclera anicteric, conjunctiva clear ENT: Auricles normal inspection, hearing grossly normal, nares patent, oropharynx clear without exudates. Moist mucosa NECK: Normal ROM, supple, no lymphadenopathy, JVD, or masses LUNGS: Breath sounds equal, clear to auscultation bilaterally. No wheezes, and no crackles HEART: Regular rate and rhythm, normal S1 and S2, no murmurs, rubs or gallops ABDOMEN: Soft, nontender, normoactive bowel sounds. No guarding, no rebound. No masses EXTREMITIES: Normal range of motion, no edema. No clubbing or cyanosis. No cords, erythema, or tenderness NEUROLOGICAL: Cranial nerves II through XII grossly intact. Moving all extremities. SKIN: Warm, Dry, normal turgor, no rashes or lesions noted. ENDOCRINE: No increased thirst. No abnormal weight change. HEMATOLOGIC/LYMPHATIC: No anemia, easy bleeding, or history of blood clots. ALLERGIC/IMMUNOLOGIC: No hives or skin allergy. <Adelina Corrales - Last Filed: 09/08/16 00:36> - Vital Signs Last Vital Signs Temp Pulse Resp BP Pulse Ox 98.7 F 89 20 137/78 96 09/07/16 20:00 09/07/16 20:00 09/07/16 20:00 09/07/16 20:00 09/07/16 20:00 <Umer [place] - Last Filed: 09/08/16 05:56> Medical Decision Making - Medical Decision Making 09/07/16 23:02 The patient is well known for chronic alcoholism and nightly is here for public intoxication and to sleep. He is not cooperating in interview or exam. he is breathing with normal vitals and protecting airway. He will be allowed to sleep for sobriety and then reassessed. 09/08/16 05:41 Pt awake, no dysarthria, no ataxia; noted walking to bathroom. He reports he wants to go to inpatient detoxification. I will give him librium PO 50mg and will have nursing look into availability for detox programs. Objectively, there is no evidence of overt detoxification. <Umer [place] - Last Filed: 09/08/16 05:56> *DC/Admit/Observation/Transfer - Attestations Scribe Attestion: 09/08/16 00:39 Documentation prepared by Adelina Corrales, acting as medical insurance biller for Umer [place] MD. <Adelina Corrales - Last Filed: 09/08/16 00:36> - Discharge Dispostion Admit: No Decision to Admit order Date/Time: 09/08/16 05:54 - Attestations Physician Attestion: 09/08/16 05:56 I, Dr. Umer [place] MD, attest that this document has been prepared under my direction and personally reviewed by me in its entirety. I further attest, that it accurately reflects all work, treatment, procedures and medical decision -making performed by me. <Umer [place] - Last Filed: 09/08/16 05:56> Diagnosis at time of Disposition: Alcohol abuse, Alcohol intoxication, Alcohol dependence, Homelessness - Discharge Dispostion Disposition: HOME Condition at time of disposition: Good - Patient Instructions Additional Instructions: Please follow up with your PMD within the next 48 hours and if there is any change otherwise in your symptoms, please return immediately to the ED. Unfortunately, there is no availability for detoxification given your recent experience with them. Please limit the amount of alcohol you drink.
[2016-09-07 22:48] VITALS: BP 112/63; PULSE 100; TEMP 97.6
[2016-09-08] MEDS ORDERED: chlordiazePOXIDE HCL 25 MG CAPSULE PO ONE (05:39)
== END 2016-09-08 06:02 | disposition home or self-care (01) ==
LOC: JER 19:54
DX: F10.120 Alcohol abuse with intoxication, uncomplicated (principal); C45.9 Mesothelioma, unspecified; J44.9 Chronic obstructive pulmonary disease, unspecified; Z59.0 Homelessness
CPT/HCPCS: 99283-25

== ENCOUNTER 2016-09-08 15:10 | Emergency (ER) | payer OTHER ==
[2016-09-08 15:26] VITALS: BP 147/114; PULSE 102; TEMP 97; BMI 34.0
--- NOTE | 2016-09-08 16:01 | PDOC ---
History of Present Illness <Jacob Bertrand - Last Filed: 09/08/16 16:00> - History of Present Illness Initial Comments: 09/08/16 18:00 The patient is a 61 year old male, with a significant past medical history of mesothelioma, COPD and ETOH abuse , who presents to the emergency department via ems for intoxication. The patient was somnolent upon arrival and does not carlos any complaints at this time. <Ernestine Snyder - Last Filed: 09/08/16 18:00> - General History Source: Patient <Umer [place] - Last Filed: 09/09/16 05:04> - General Chief Complaint: Alcohol intoxication Stated Complaint: INTOX Time Seen by Provider: 09/08/16 16:00 Past History - Past Medical History Anemia: No Asthma: No Cancer: Yes (mesothelioma) Cardiac Disorders: No CVA: No COPD: No CHF: No Dementia: No Diabetes: No GI Disorders: No Disorders: No HTN: No Hypercholesterolemia: No Kidney Stones: No Liver Disease: No Psychiatric Problems: Yes (alcoholism) Suicide Attempt (Hx): No Seizures: No Thyroid Disease: No - Surgical History Abdominal Surgery: No Appendectomy: No Cardiac Surgery: No Cholecystectomy: No Lung Surgery: No Neurologic Surgery: No Orthopedic Surgery: No - Family Disease History Family Disease History: CA: Mother - Reproductive History Testicular Surgery: No - Immunization History TDAP Vaccination: Yes Immunization Up to Date: Yes - Psycho/Social/Smoking Cessation Hx Anxiety: No Suicidal Ideation: No Smoking Status: No Smoking History: Never smoked Have you smoked in the past 12 months: No Number of Cigarettes Smoked Daily: 0 Cigars Per Day: 0 Information on smoking cessation initiated: No 'Breaking Loose' booklet given: 08/23/16 Hx Alcohol Use: No Drug/Substance Use Hx: No Substance Use Type: Alcohol Hx Substance Use Treatment: Yes ([facility]) <Jacob Bertrand - Last Filed: 09/08/16 16:00> <Ernestine Snyder - Last Filed: 09/08/16 18:00> <Umer [place] - Last Filed: 09/09/16 05:04> - Past Medical History Allergies/Adverse Reactions: Allergies Allergy/AdvReac Type Severity Reaction Status Date / Time Fish Containing Products Allergy Verified 09/08/16 15:23 Home Medications: Ambulatory Orders NK [No Known Home Medication] 07/12/16 Review of Systems - Review of Systems Able to Perform ROS?: Yes Comments:: 09/08/16 18:05 GENERAL/CONSTITUTIONAL: No fever or chills. No weakness. HEAD, EYES, EARS, NOSE AND THROAT: No change in vision. No ear pain or discharge. No sore throat. CARDIOVASCULAR: No chest pain or shortness of breath. RESPIRATORY: No cough, wheezing, or hemoptysis. GASTROINTESTINAL: No nausea, vomiting, diarrhea or constipation. GENITOURINARY: No dysuria, frequency, or change in urination. MUSCULOSKELETAL: No joint or muscle swelling or pain. No neck or back pain. SKIN: No rash NEUROLOGIC: No headache, vertigo, loss of consciousness, or change in strength/ sensation. ENDOCRINE: No increased thirst. No abnormal weight change. HEMATOLOGIC/LYMPHATIC: No anemia, easy bleeding, or history of blood clots. ALLERGIC/IMMUNOLOGIC: No hives or skin allergy. <Ernestine Snyder - Last Filed: 09/08/16 18:00> *Physical Exam - Vital Signs Last Vital Signs Temp Pulse Resp BP Pulse Ox 97 F L 102 H 20 147/114 98 09/08/16 15:24 09/08/16 15:24 09/08/16 15:24 09/08/16 15:24 09/08/16 15:24 <Jacob Bertrand - Last Filed: 09/08/16 16:00> - Vital Signs Last Vital Signs Temp Pulse Resp BP Pulse Ox 97 F L 102 H 20 147/114 98 09/08/16 15:24 09/08/16 15:24 09/08/16 15:24 09/08/16 15:24 09/08/16 15:24 - Physical Exam Comments: 09/08/16 18:05 GENERAL: (+) ETOH on breath. Somnolent, but arousable, and fully oriented, in no acute distress HEAD: No signs of trauma EYES: PERRLA, EOMI, sclera anicteric, conjunctiva clear ENT: Auricles normal inspection, hearing grossly normal, nares patent, oropharynx clear without exudates. Moist mucosa NECK: Normal ROM, supple, no lymphadenopathy, JVD, or masses LUNGS: Breath sounds equal, clear to auscultation bilaterally. No wheezes, and no crackles HEART: Regular rate and rhythm, normal S1 and S2, no murmurs, rubs or gallops ABDOMEN: Soft, nontender, normoactive bowel sounds. No guarding, no rebound. No masses EXTREMITIES: Normal range of motion, no edema. No clubbing or cyanosis. No cords, erythema, or tenderness NEUROLOGICAL: Cranial nerves II through XII grossly intact. Normal speech, normal gait SKIN: Warm, Dry, normal turgor, no rashes or lesions noted. <Ernestine Snyder - Last Filed: 09/08/16 18:00> - Vital Signs Last Vital Signs Temp Pulse Resp BP Pulse Ox 97 F L 102 H 20 147/114 98 09/08/16 15:24 09/08/16 15:24 09/08/16 15:24 09/08/16 15:24 09/08/16 15:24 <Umer [place] - Last Filed: 09/09/16 05:04> *DC/Admit/Observation/Transfer - Attestations Physician Attestion: 09/08/16 16:01 I, Dr. Jacob Bertrand, attest that this document has been prepared under my direction and personally reviewed by me in its entirety. I further attest, that it accurately reflects all work, treatment, procedures and medical decision -making performed by me. <Jacob Bertrand - Last Filed: 09/08/16 16:00> - Attestations Scribe Attestion: 09/08/16 18:06 Documentation prepared by Ernestine Snyder, acting as medical legal investigator for Jacob Bertrand MD <Ernestine Snyder - Last Filed: 09/08/16 18:00> - Discharge Dispostion Admit: No Decision to Admit order Date/Time: 09/09/16 05:04 - Attestations Physician Attestion: 09/09/16 05:04 I, Dr. Umer [place] MD, attest that this document has been prepared under my direction and personally reviewed by me in its entirety. I further attest, that it accurately reflects all work, treatment, procedures and medical decision -making performed by me. <Umer [place] - Last Filed: 09/09/16 05:04> Diagnosis at time of Disposition: Alcohol abuse, Alcohol intoxication - Discharge Dispostion Disposition: HOME Condition at time of disposition: Good - Patient Instructions Additional Instructions: Please follow up with your PMD within the next 48 hours and if there is any change otherwise in your symptoms, please return immediately to the ED
== END 2016-09-09 06:00 | disposition home or self-care (01) ==
LOC: JER 15:10
DX: F10.220 Alcohol dependence with intoxication, uncomplicated (principal); C45.9 Mesothelioma, unspecified
CPT/HCPCS: 99283-25

== ENCOUNTER → 2016-09-09 | Emergency (ER) | payer OTHER ==
[2016-09-09 20:04] VITALS: BP 125/80; PULSE 79; TEMP 98.7; BMI 34.2
--- NOTE | 2016-09-09 20:16 | PDOC ---
History of Present Illness - General Stated Complaint: BACK PAIN Time Seen by Provider: 09/09/16 19:56 History Source: Patient Exam Limitations: Intoxication - History of Present Illness Initial Comments: CHIEF COMPLAINT: 61 y/o afebrile male with PMH mesothelioma, COPD and ETOH abuse, well known to this ER for multiple visits for ETOH abuse, here for intoxication and back pain. HISTORY OF PRESENT ILLNESS: The patient is somnolent upon arrival and is denying all complaints of pain. Vital signs on arrival are within normal limits. REVIEW OF SYSTEMS: GENERAL/CONSTITUTIONAL: No fever/chills. No weakness. No weight change. HEAD, EYES, EARS, NOSE AND THROAT: No change in vision. No ear pain or discharge. No sore throat. CARDIOVASCULAR: No chest pain or shortness of breath. RESPIRATORY: No cough, wheezing, or hemoptysis. GASTROINTESTINAL: No abd pain, nausea, vomiting, diarrhea. GENITOURINARY: No dysuria, frequency, or change in urination. MUSCULOSKELETAL: No joint or muscle swelling or pain. No neck or back pain. SKIN: No rash or easy bruising. NEUROLOGIC: No headache, vertigo, loss of consciousness, or loss of sensation. PHYSICAL EXAM: GENERAL: The patient is somnolent but arousable with ETOH on breath. He is fully oriented, in NAD or obvious discomfort. HEAD: Normal with no signs of trauma. ENT: Pupils equal, round and reactive to light, extraocular movements intact, sclera anicteric, conjunctiva clear. Neck supple. LUNGS: Clear to auscultation bilaterally. Normal excursion. No respiratory distress or use of accessory muscles. CV: RRR, S1/S2, no MRG. Cap refill < 2 sec. ABDOMEN: Soft, non-distended, non-tender even to deep palpation, no hepatomegaly or splenomegaly, no masses. EXTREMITIES: Normal range of motion, no edema. NEUROLOGICAL: Normal speech, normal gait. CN II-XII grossly intact. PSYCH: Normal mood, normal affect. SKIN: Warm, dry, normal turgor, no rashes or lesions noted. Past History - Past Medical History Allergies/Adverse Reactions: Allergies Allergy/AdvReac Type Severity Reaction Status Date / Time Fish Containing Products Allergy Verified 09/11/16 21:37 Home Medications: Ambulatory Orders NK [No Known Home Medication] 07/12/16 Anemia: No Asthma: No Cancer: Yes (mesothelioma) Cardiac Disorders: No CVA: No COPD: No CHF: No Dementia: No Diabetes: No GI Disorders: No Disorders: No HTN: No Hypercholesterolemia: No Kidney Stones: No Liver Disease: No Psychiatric Problems: Yes (alcoholism) Suicide Attempt (Hx): No Seizures: No Thyroid Disease: No - Surgical History Abdominal Surgery: No Appendectomy: No Cardiac Surgery: No Cholecystectomy: No Lung Surgery: No Neurologic Surgery: No Orthopedic Surgery: No - Family Disease History Family Disease History: CA: Mother - Reproductive History Testicular Surgery: No - Immunization History TDAP Vaccination: Yes Immunization Up to Date: Yes - Psycho/Social/Smoking Cessation Hx Anxiety: No Suicidal Ideation: No Smoking Status: No Smoking History: Never smoked Have you smoked in the past 12 months: No Number of Cigarettes Smoked Daily: 0 Cigars Per Day: 0 'Breaking Loose' booklet given: 08/23/16 Hx Alcohol Use: No Drug/Substance Use Hx: No Substance Use Type: Alcohol Hx Substance Use Treatment: Yes ([facility]) *Physical Exam - Vital Signs Last Vital Signs Temp Pulse Resp BP Pulse Ox 98.7 F 79 20 125/80 98 09/09/16 20:02 09/09/16 20:02 09/09/16 20:02 09/09/16 20:02 09/09/16 20:02 Medical Decision Making - Medical Decision Making A/P: 61 y/o male here for ETOH intoxication. The patient woke up in the morning and was ambulatory with steady gait. Will discharge to home. *DC/Admit/Observation/Transfer Diagnosis at time of Disposition: Alcohol intoxication - Discharge Dispostion Disposition: HOME Condition at time of disposition: Improved - Patient Instructions Printed Discharge Instructions: DI for Alcohol Abuse
--- NOTE | 2016-09-10 05:18 | PDOC ---
*Physical Exam - Vital Signs Last Vital Signs Temp Pulse Resp BP Pulse Ox 98.7 F 79 20 125/80 98 09/09/16 20:02 09/09/16 20:02 09/09/16 20:02 09/09/16 20:02 09/09/16 20:02 Medical Decision Making - Medical Decision Making 09/10/16 05:18 agree with care from APPLE Bucio *DC/Admit/Observation/Transfer Diagnosis at time of Disposition: Alcohol intoxication
== END | disposition home or self-care (01) ==
LOC: JER 19:19
DX: F10.220 Alcohol dependence with intoxication, uncomplicated (principal); C45.9 Mesothelioma, unspecified
CPT/HCPCS: 99281-25

== ENCOUNTER 2016-09-10 21:52 | Emergency (ER) | payer OTHER ==
[2016-09-10 22:28] VITALS: TEMP 97.9; BMI 38.0
--- NOTE | 2016-09-11 01:23 | PDOC ---
History of Present Illness - General Chief Complaint: Alcohol intoxication Stated Complaint: ALCOHOL INTOXICATION Time Seen by Provider: 09/11/16 00:12 History Source: Patient Exam Limitations: No Limitations - History of Present Illness Initial Comments: 09/11/16 01:21 Patient is a 61-year-old male with history of alcohol abuse, mesothelioma, well- known to this M.D., was brought in by EMS for acute alcohol intoxication. Patient reports that he consumed a large amount of alcohol shortly prior to arrival. Patient denies toxic ingestion and recent trauma. Patient been seen in this ER less than 24 hours previously for similar complaints. REVIEW OF SYSTEMS CONSTITUTIONAL: No fever, no chills, no fatigue EYES: No visual changes ENT: No ear pain, no sore throat CARDIOVASCULAR: No chest pain, no palpitations RESPIRATORY: No cough, no SOB GI: No abdominal pain, no nausea, no vomiting, no constipation, no diarrhea GENITOURINARY: No dysuria, no frequency, no hematuria MUSKULOSKELETAL: No backpain, no joint pain, no myalgias SKIN: No rash NEURO: No headache EXAMINATION CONSTITUTIONAL: Patient is awake and alert; + alcohol on breath; disheveled; well-nourished; in no apparent distress HEAD: Normocephalic; atraumatic EYES: PERRL; EOM intact ENMT: External appears normal; normal oropharynx NECK: Supple; non-tender; no cervical lymphadenopathy CARD: Normal S1, S2; no murmurs, rubs, or gallops RESP: Normal chest excursion with respiration; breath sounds clear and equal bilaterally; no wheezes, rhonchi, or rales ABD: Soft, non-distended; non-tender; no palpable organomegaly, no palpable hernias EXT: Normal ROM in all four extremities; non-tender to palpation; distal pulses intact SKIN: Warm, dry, no rash NEURO: Alert, oriented 3, cranial nerves II through XII grossly intact; motor is 5 of 54; gait-deferred Past History - Past Medical History Allergies/Adverse Reactions: Allergies Allergy/AdvReac Type Severity Reaction Status Date / Time Fish Containing Products Allergy Verified 09/10/16 22:28 Home Medications: Ambulatory Orders NK [No Known Home Medication] 07/12/16 Anemia: No Asthma: No Cancer: Yes (mesothelioma) Cardiac Disorders: No CVA: No COPD: No CHF: No Dementia: No Diabetes: No GI Disorders: No Disorders: No HTN: No Hypercholesterolemia: No Kidney Stones: No Liver Disease: No Psychiatric Problems: Yes (alcoholism) Suicide Attempt (Hx): No Seizures: No Thyroid Disease: No - Surgical History Abdominal Surgery: No Appendectomy: No Cardiac Surgery: No Cholecystectomy: No Lung Surgery: No Neurologic Surgery: No Orthopedic Surgery: No - Family Disease History Family Disease History: CA: Mother - Reproductive History Testicular Surgery: No - Immunization History TDAP Vaccination: Yes Immunization Up to Date: Yes - Psycho/Social/Smoking Cessation Hx Anxiety: No Suicidal Ideation: No Smoking Status: No Smoking History: Current some day smoker Have you smoked in the past 12 months: No Number of Cigarettes Smoked Daily: 0 Cigars Per Day: 0 Information on smoking cessation initiated: No 'Breaking Loose' booklet given: 08/23/16 Hx Alcohol Use: Yes Drug/Substance Use Hx: No Substance Use Type: Alcohol Hx Substance Use Treatment: Yes ([facility]) *Physical Exam - Vital Signs Last Vital Signs Temp Pulse Resp BP Pulse Ox 97.9 F 68 22 107/60 98 09/10/16 22:27 09/10/16 22:27 09/10/16 22:27 09/10/16 22:27 09/10/16 22:27 Medical Decision Making - Medical Decision Making 09/11/16 01:22 Patient's 61-year-old male with history of alcohol abuse brought in by EMS for acute alcohol intoxication. No evidence of trauma is present at this time. Will continue to observe for clinical sobriety. Will discharge when patient with stable gait. *DC/Admit/Observation/Transfer Diagnosis at time of Disposition: Alcohol abuse - Discharge Dispostion Disposition: HOME - Patient Instructions Printed Discharge Instructions: DI for Alcohol Abuse
--- NOTE | 2016-09-11 06:55 | PDOC ---
*Physical Exam - Vital Signs Last Vital Signs Temp Pulse Resp BP Pulse Ox 97.9 F 68 22 107/60 98 09/10/16 22:27 09/10/16 22:27 09/10/16 22:27 09/10/16 22:27 09/10/16 22:27 *DC/Admit/Observation/Transfer Diagnosis at time of Disposition: Alcohol abuse - Discharge Dispostion Disposition: HOME Condition at time of disposition: Stable Admit: No - Patient Instructions Printed Discharge Instructions: DI for Alcohol Abuse
[2016-09-11 07:03] VITALS: BP 147/96; PULSE 94
== END 2016-09-11 07:04 | disposition home or self-care (01) ==
LOC: JER 21:52
DX: F10.120 Alcohol abuse with intoxication, uncomplicated (principal); C45.9 Mesothelioma, unspecified; F17.210 Nicotine dependence, cigarettes, uncomplicated
CPT/HCPCS: 99282-25

== ENCOUNTER 2016-09-11 21:22 | Emergency (ER) | payer OTHER ==
[2016-09-11 21:37] VITALS: BP 136/87; PULSE 86; TEMP 97.9; BMI 37.8
--- NOTE | 2016-09-11 23:07 | PDOC ---
History of Present Illness - General History Source: EMS Exam Limitations: Intoxication - History of Present Illness Initial Comments: 09/11/16 23:29 The patient is a 61 year old male, well known to the ER, with a significant past medical history of mesothelioma and EtOH abuse who presents to the emergency department BIBA for alcohol intoxication. Patient currently has no complaints as pt is asleep. There are no obvious injuries noted. <Julia Woodruff - Last Filed: 09/11/16 23:29> - General History Source: Patient <PerryAltaf heard - Last Filed: 09/12/16 06:44> - General Chief Complaint: Alcohol intoxication Stated Complaint: ALCOHOL INTOXICATION Time Seen by Provider: 09/11/16 23:07 Past History <Julia Woodruff - Last Filed: 09/11/16 23:29> - Past Medical History Anemia: No Asthma: No Cancer: Yes (mesothelioma) Cardiac Disorders: No CVA: No COPD: No CHF: No Dementia: No Diabetes: No GI Disorders: No Disorders: No HTN: No Hypercholesterolemia: No Kidney Stones: No Liver Disease: No Psychiatric Problems: Yes (alcoholism) Suicide Attempt (Hx): No Seizures: No Thyroid Disease: No - Surgical History Abdominal Surgery: No Appendectomy: No Cardiac Surgery: No Cholecystectomy: No Lung Surgery: No Neurologic Surgery: No Orthopedic Surgery: No - Family Disease History Family Disease History: CA: Mother - Reproductive History Testicular Surgery: No - Immunization History TDAP Vaccination: Yes Immunization Up to Date: Yes - Psycho/Social/Smoking Cessation Hx Anxiety: No Suicidal Ideation: No Smoking Status: No Smoking History: Never smoked Have you smoked in the past 12 months: No Number of Cigarettes Smoked Daily: 0 Cigars Per Day: 0 Information on smoking cessation initiated: No 'Breaking Loose' booklet given: 08/23/16 Hx Alcohol Use: Yes Drug/Substance Use Hx: No Substance Use Type: Alcohol Hx Substance Use Treatment: Yes ([facility]) <Altaf Iniguez - Last Filed: 09/12/16 06:44> - Past Medical History Allergies/Adverse Reactions: Allergies Allergy/AdvReac Type Severity Reaction Status Date / Time Fish Containing Products Allergy Verified 09/11/16 21:37 Home Medications: Ambulatory Orders NK [No Known Home Medication] 07/12/16 Review of Systems - Review of Systems Able to Perform ROS?: Yes Comments:: 09/11/16 23:29 CONSTITUTIONAL: Absent: fever, no chills, no fatigue EYES: Absent: visual changes ENT: Absent: ear pain, no sore throat CARDIOVASCULAR: Absent: chest pain, no palpitations RESPIRATORY: Absent: cough, no SOB GI: Absent: abdominal pain, no nausea, no vomiting, no constipation, no diarrhea GENITOURINARY: Absent: dysuria, no frequency, no hematuria MUSCULOSKELETAL: Absent: back pain, no arthralgia, no myalgia SKIN: Absent: rash NEURO: Absent: headache <Julia Woodruff - Last Filed: 09/11/16 23:29> *Physical Exam - Vital Signs Last Vital Signs Temp Pulse Resp BP Pulse Ox 97.9 F 86 18 136/87 95 09/11/16 21:34 09/11/16 21:34 09/11/16 21:34 09/11/16 21:34 09/11/16 21:34 - Physical Exam Comments: 09/11/16 23:30 GENERAL: Well-appearing, well-nourished. No apparent distress. +AOB HEENT: Normocephalic, atraumatic. PERRL, EOM intact. CARDIOVASCULAR: Normal S1, S2. Regular rate and rhythm. PULMONARY: Clear to auscultation bilaterally. ABDOMEN: Soft, non-distended, non-tender. EXTREMITIES: Normal ROM in all four extremities. No gross deformities. SKIN: Warm, dry. No rash NEUROLOGICAL: Pt is asleep. No gross focal neurological deficits. <Julia Woodruff - Last Filed: 09/11/16 23:29> - Vital Signs Last Vital Signs Temp Pulse Resp BP Pulse Ox 97.9 F 86 18 136/87 95 09/11/16 21:34 09/11/16 21:34 09/11/16 21:34 09/11/16 21:34 09/11/16 21:34 <Altaf Iniguez - Last Filed: 09/12/16 06:44> ED Treatment Course - LABORATORY CBC & Chemistry Diagram: 09/12/16 01:15 09/12/16 01:15 <Altaf Iniguez - Last Filed: 09/12/16 06:44> Medical Decision Making - Medical Decision Making 09/12/16 06:44 Dr. Iniguez: The scribe's documentation has been prepared under my direction and personally reviewed by me in its entirery. I confirm that the note above accurately reflects all work, treatment, procedures, and medical decision making performed by me. <Altaf Iniguez - Last Filed: 09/12/16 06:44> *DC/Admit/Observation/Transfer - Attestations Scribe Attestion: 09/11/16 23:30 Documentation prepared by Julia Woodruff, acting as certified medical biller for Altaf Iniguez MD <Julia Woodruff - Last Filed: 09/11/16 23:29> - Discharge Dispostion Admit: No <Altaf Iniguez - Last Filed: 09/12/16 06:44> Diagnosis at time of Disposition: Alcohol abuse - Discharge Dispostion Disposition: HOME Condition at time of disposition: Stable - Patient Instructions Printed Discharge Instructions: DI for Alcohol Abuse
[2016-09-12 01:38] LABS: BASOPHIL 1.4 % (0-2.0); EOSINOPHIL 3.9 % (0-4.5); MCH 30.3 pg (25.7-33.7); MCHC 33.1 g/dl (32.0-35.9); MEAN CELL VOLUME 91.7 fl (80-96); MEAN PLT VOLUME 6.8 fl (7.5-11.1); NEUTROPHILS 50.4 % (42.8-82.8); PLATELET COUNT 276 K/MM3 (134-434); RDW 16.3 % (11.9-15.9); WHITE BLOOD COUNT 5.8 K/mm3 (4.0-10.0)
[2016-09-12 02:12] LABS: ALK PHOS 110 U/L (45-117); ANION GAP 13 (8-16); BILIRUBIN,TOTAL 0.2 mg/dL (0.2-1.0); CALCIUM 7.7 mg/dL (8.5-10.1); CO2 29 mmol/L (21-32); CREATININE 0.6 mg/dL (0.7-1.3); GLUCOSE,RANDOM 88 mg/dL (74-106); MAGNESIUM 1.4 mg/dL (1.8-2.4); SGOT/AST 55 U/L (15-37); SGPT/ALT 27 U/L (12-78); TOT PROT 6.1 g/dl (6.4-8.2)
[2016-09-12] MEDS ORDERED: POTASSIUM CHLORIDE 40 MEQ/30 ML UNIT DOSE CUP PO ONE (02:27)
[2016-09-12] MEDS ORDERED: MAGNESIUM CL 64 MG TABLET.SA PO STA (02:57)
[2016-09-12] MEDS ORDERED: MAGNESIUM OXIDE 400 MG TABLET (FP) PO ONE (03:09)
[2016-09-12] MEDS ORDERED: MAGNESIUM OXIDE 400 MG TABLET (FP) ONE (03:10)
[2016-09-12] MEDS ORDERED: POTASSIUM CHLORIDE 40 MEQ/30 ML UNIT DOSE CUP ONE (03:10)
[2016-09-12] MEDS ORDERED: CALCIUM CARBONATE 650 MG TABLET PO STA (03:17)
== END 2016-09-12 07:20 | disposition home or self-care (01) ==
LOC: JER 21:22
DX: F10.120 Alcohol abuse with intoxication, uncomplicated (principal); C45.9 Mesothelioma, unspecified; F17.210 Nicotine dependence, cigarettes, uncomplicated
CPT/HCPCS: 36415; 80053; 83735; 85025; 99283-25

== ENCOUNTER 2016-09-12 13:14 | Emergency (ER) | payer OTHER ==
[2016-09-12 13:40] VITALS: BP 130/74; PULSE 88; TEMP 97.9; BMI 31.5
--- NOTE | 2016-09-12 14:18 | PDOC ---
[id number]: INTOX Time Seen by Provider: 09/12/16 13:48 History Source: Patient Exam Limitations: No Limitations - History of Present Illness Initial Comments: 09/12/16 14:17 61y M hx mesothelioma,. etoh abuse, of BIBEMS for intoxication. pt sleeping in stretcher on arrival. arousable w/o compliants Past History - Past Medical History Allergies/Adverse Reactions: Allergies Allergy/AdvReac Type Severity Reaction Status Date / Time Fish Containing Products Allergy Verified 09/12/16 13:38 Home Medications: Ambulatory Orders NK [No Known Home Medication] 07/12/16 Anemia: No Asthma: No Cancer: Yes (mesothelioma) Cardiac Disorders: No CVA: No COPD: No CHF: No Dementia: No Diabetes: No GI Disorders: No Disorders: No HTN: No Hypercholesterolemia: No Kidney Stones: No Liver Disease: No Psychiatric Problems: Yes (alcoholism) Suicide Attempt (Hx): No Seizures: No Thyroid Disease: No - Surgical History Abdominal Surgery: No Appendectomy: No Cardiac Surgery: No Cholecystectomy: No Lung Surgery: No Neurologic Surgery: No Orthopedic Surgery: No - Family Disease History Family Disease History: CA: Mother - Reproductive History Testicular Surgery: No - Immunization History TDAP Vaccination: Yes Immunization Up to Date: Yes - Psycho/Social/Smoking Cessation Hx Anxiety: No Suicidal Ideation: No Smoking Status: No Smoking History: Never smoked Have you smoked in the past 12 months: No Number of Cigarettes Smoked Daily: 0 Cigars Per Day: 0 Information on smoking cessation initiated: No 'Breaking Loose' booklet given: 08/23/16 Hx Alcohol Use: Yes Drug/Substance Use Hx: No Substance Use Type: Alcohol Hx Substance Use Treatment: Yes ([facility]) Review of Systems - Review of Systems Able to Perform ROS?: Yes Is the patient limited Dutch proficient: No Constitutional: No: Symptoms Reported HEENTM: No: Symptoms Reported Respiratory: No: Symptoms reported Cardiac (ROS): No: Symptoms Reported ABD/GI: No: Symptoms Reported : No: Symptoms Reported Musculoskeletal: No: Symptoms Reported Integumentary: No: Symptoms Reported Neurological: No: Symptoms reported *Physical Exam - Vital Signs Last Vital Signs Temp Pulse Resp BP Pulse Ox 97.9 F 88 20 130/74 98 09/12/16 13:38 09/12/16 13:38 09/12/16 13:38 09/12/16 13:38 09/12/16 13:38 - Physical Exam Comments: 09/12/16 14:25 GENERAL: The patient is awake, alert, and fully oriented, Nontoxic - in no acute distress. Discheveled appearing HEAD: Normocephalic, atraumatic. EYES: extraocular movements intact, sclera anicteric, conjunctiva clear. ENT: Normal voice, Moist mucous membranes. NECK: Normal range of motion, supple EXTREMITIES: Normal range of motion, NEUROLOGICAL: No facial assymetry, Normal speech, ambulatory with normal gait. atremulous PSYCH: Normal mood, normal affect. SKIN: Warm, Dry, normal turgor, Medical Decision Making - Medical Decision Making 09/12/16 14:24 09/12/16 14:26 *DC/Admit/Observation/Transfer Diagnosis at time of Disposition: Alcohol abuse - Discharge Dispostion Disposition: HOME Condition at time of disposition: Improved Admit: No - Referrals Referrals: [facility] [Provider Group] - Patient Instructions Printed Discharge Instructions: DI for Alcohol Abuse Additional Instructions: Return to the emergency department immediately with ANY new, persistent or worsening symptoms. You MUST call and follow up with your doctor tomorrow for further evaluation of your symptoms. Results were discussed with you. Please make sure your doctor reviews the results of your emergency evaluation. If you had any xrays during your visit, it was read preliminarily by myself, a Radiologist will review it and if there are any additional findings we will call you.
== END 2016-09-12 15:01 | disposition home or self-care (01) ==
LOC: JER 13:14
DX: F10.120 Alcohol abuse with intoxication, uncomplicated (principal); F17.210 Nicotine dependence, cigarettes, uncomplicated; C45.9 Mesothelioma, unspecified
CPT/HCPCS: 99282-25

== ENCOUNTER 2016-09-14 20:03 | Emergency (ER) | payer OTHER ==
[2016-09-14 21:37] VITALS: BMI 31.5
--- NOTE | 2016-09-15 03:00 | PDOC ---
History of Present Illness - History of Present Illness Initial Comments: 09/15/16 03:50 The patient is a 61 year old male, well known to the ER, with a significant past medical history of alcohol dependency, who presents to the emergency department via ems for alcohol intoxication today. The patient denies any acute complaints and is walking around the ED. He denies chest pain, shortness of breath, headache and dizziness. He denies fever, chills, nausea, vomit, diarrhea and constipation. He denies dysuria, frequency, urgency and hematuria. Allergies: NKDA <Ernestine Snyder - Last Filed: 09/15/16 03:50> <Lorri Kumar - Last Filed: 09/15/16 06:50> <Richard Ulrich - Last Filed: 09/15/16 09:08> - General Chief Complaint: Alcohol intoxication Stated Complaint: INTOXICATION Time Seen by Provider: 09/14/16 22:18 Past History <Ernestine Snyder - Last Filed: 09/15/16 03:50> - Past Medical History Anemia: No Asthma: No Cancer: Yes (mesothelioma) Cardiac Disorders: No CVA: No COPD: No CHF: No Dementia: No Diabetes: No GI Disorders: No Disorders: No HTN: No Hypercholesterolemia: No Kidney Stones: No Liver Disease: No Psychiatric Problems: Yes (alcoholism) Suicide Attempt (Hx): No Seizures: No Thyroid Disease: No - Surgical History Abdominal Surgery: No Appendectomy: No Cardiac Surgery: No Cholecystectomy: No Lung Surgery: No Neurologic Surgery: No Orthopedic Surgery: No - Family Disease History Family Disease History: CA: Mother - Reproductive History Testicular Surgery: No - Immunization History TDAP Vaccination: Yes Immunization Up to Date: Yes - Psycho/Social/Smoking Cessation Hx Anxiety: No Suicidal Ideation: No Smoking Status: No Smoking History: Never smoked Have you smoked in the past 12 months: No Number of Cigarettes Smoked Daily: 0 Cigars Per Day: 0 'Breaking Loose' booklet given: 08/23/16 Hx Alcohol Use: Yes Drug/Substance Use Hx: No Substance Use Type: Alcohol Hx Substance Use Treatment: Yes ([facility]) <Lorri Kumar - Last Filed: 09/15/16 06:50> <Richard Ulrich - Last Filed: 09/15/16 09:08> - Past Medical History Allergies/Adverse Reactions: Allergies Allergy/AdvReac Type Severity Reaction Status Date / Time Fish Containing Products Allergy Verified 09/14/16 21:37 Home Medications: Ambulatory Orders NK [No Known Home Medication] 07/12/16 Review of Systems - Review of Systems Able to Perform ROS?: Yes Comments:: 09/15/16 03:52 GENERAL/CONSTITUTIONAL: No fever or chills. No weakness. HEAD, EYES, EARS, NOSE AND THROAT: No change in vision. No ear pain or discharge. No sore throat. CARDIOVASCULAR: No chest pain or shortness of breath. RESPIRATORY: No cough, wheezing, or hemoptysis. GASTROINTESTINAL: No nausea, vomiting, diarrhea or constipation. GENITOURINARY: No dysuria, frequency, or change in urination. MUSCULOSKELETAL: No joint or muscle swelling or pain. No neck or back pain. SKIN: No rash NEUROLOGIC: No headache, vertigo, loss of consciousness, or change in strength/ sensation. ENDOCRINE: No increased thirst. No abnormal weight change. HEMATOLOGIC/LYMPHATIC: No anemia, easy bleeding, or history of blood clots. ALLERGIC/IMMUNOLOGIC: No hives or skin allergy. <Ernestine Snyder - Last Filed: 09/15/16 03:50> *Physical Exam - Vital Signs Last Vital Signs Temp Pulse Resp BP Pulse Ox 97.9 F 87 18 146/85 95 09/14/16 20:15 09/14/16 20:15 09/14/16 20:15 09/14/16 20:15 09/14/16 20:15 - Physical Exam Comments: 09/15/16 03:52 GENERAL: (+) EtOH on breath. Somnolent, but arousable. fully oriented, in no acute distress HEAD: No signs of trauma EYES: PERRLA, EOMI, sclera anicteric, conjunctiva clear ENT: Auricles normal inspection, hearing grossly normal, nares patent, oropharynx clear without exudates. Moist mucosa NECK: Normal ROM, supple, no lymphadenopathy, JVD, or masses LUNGS: Breath sounds equal, clear to auscultation bilaterally. No wheezes, and no crackles HEART: Regular rate and rhythm, normal S1 and S2, no murmurs, rubs or gallops ABDOMEN: Soft, nontender, normoactive bowel sounds. No guarding, no rebound. No masses EXTREMITIES: Normal range of motion, no edema. No clubbing or cyanosis. No cords, erythema, or tenderness NEUROLOGICAL: Cranial nerves II through XII grossly intact. Normal speech, normal gait SKIN: Warm, Dry, normal turgor, no rashes or lesions noted. <Ernestine Snyder - Last Filed: 09/15/16 03:50> - Vital Signs Last Vital Signs Temp Pulse Resp BP Pulse Ox 97.9 F 87 18 146/85 95 09/14/16 20:15 09/14/16 20:15 09/14/16 20:15 09/14/16 20:15 09/14/16 20:15 <Lorri Kumar - Last Filed: 09/15/16 06:50> - Vital Signs Last Vital Signs Temp Pulse Resp BP Pulse Ox 97.6 F 89 18 142/84 97 09/15/16 03:00 09/15/16 03:00 09/15/16 03:00 09/15/16 03:00 09/15/16 03:00 <Richard Ulrich - Last Filed: 09/15/16 09:08> ED Treatment Course - Medications Given in the ED: ED Medications Discontinued Medications Generic Name Dose Route Start Last Admin Trade Name Freq PRN Reason Stop Dose Admin Albuterol/Ipratropium 1 amp 09/15/16 07:44 09/15/16 07:54 Duoneb - NEB 09/15/16 07:45 1 amp ONCE ONE Administration <Richard Ulrich - Last Filed: 09/15/16 09:08> Medical Decision Making - Medical Decision Making 09/15/16 06:46 Pt comes with alcohol intoxication. He has no complaints. He is easily arousable and walks to the bathroom. Pt doesn't want blood tests, he is looking for a place to sleep. This AM, pt is states that he is not ready to leave, as he feels SOB; however, he is speaking in full sentences and he is ambulating about the ER without difficulty. Regardless, I will order a CXR, as patient has a history of mesothelioma. Pt will be signed out to the day doctor. <Lorri Kumar - Last Filed: 09/15/16 06:50> - Medical Decision Making 09/15/16 09:08 pt feels improved requesting to go home. I discussed the physical exam findings, ancillary test results and final diagnoses with the patient. I answered all of the patient's questions. The patient was satisfied with the care received and felt comfortable with the discharge plan and treatment plan. The patient will call their primary care physician within 24 hours to arrange follow-up and will return to the Emergency Department with any new, persistent or worsening symptoms. <Richard Ulrich - Last Filed: 09/15/16 09:08> *DC/Admit/Observation/Transfer - Attestations Scribe Attestion: 09/15/16 03:53 Documentation prepared by Ernestine Snyder, acting as medical administrative specialist for Lorri Kumar MD <Ernestine Snyder - Last Filed: 09/15/16 03:50> - Discharge Dispostion Admit: No <Lorri Kumar - Last Filed: 09/15/16 06:50> - Discharge Dispostion Admit: No <Richard Ulrich - Last Filed: 09/15/16 09:08> Diagnosis at time of Disposition: Alcohol abuse - Discharge Dispostion Disposition: HOME Condition at time of disposition: Stable - Referrals Referrals: [facility] [Provider Group] - Patient Instructions Printed Discharge Instructions: DI for Alcohol Abuse Additional Instructions: Return to the emergency department immediately with ANY new, persistent or worsening symptoms. You MUST call and follow up with your doctor tomorrow for further evaluation of your symptoms. Results were discussed with you. Please make sure your doctor reviews the results of your emergency evaluation. If you had any xrays during your visit, it was read preliminarily by myself, a Radiologist will review it and if there are any additional findings we will call you. Print Language: TANZANIAN
[2016-09-15 07:26] VITALS: BP 142/84; PULSE 89; TEMP 97.6
[2016-09-15] MEDS ORDERED: ALBUTEROL SO4 2.5/IPRATROPIUM 0.5 INH SOL 3 ML VIAL.NEB. NEB ONE ×2 (07:44)
== END 2016-09-15 09:30 | disposition home or self-care (01) ==
LOC: JER 20:03
PROC: 3E0F7GC Introduction of Other Therapeutic Substance into Respiratory Tract, Via Natural or Artificial Opening (ICD-10-PCS; principal; 2016-09-14)
DX: F10.220 Alcohol dependence with intoxication, uncomplicated (principal); C45.9 Mesothelioma, unspecified
CPT/HCPCS: 71020-TC; 94640; 99283-25

== ENCOUNTER 2016-09-17 20:14 | Emergency (ER) | payer OTHER ==
[2016-09-17 20:30] VITALS: BP 92/44; PULSE 73; TEMP 98.6; BMI 31.5
--- NOTE | 2016-09-18 02:21 | PDOC ---
History of Present Illness - General History Source: Patient Exam Limitations: Intoxication - History of Present Illness Initial Comments: 09/18/16 02:27 The patient is a 61 year old male, well known to the ER, with a significant past medical history of mesothelioma and EtOH abuse who presents to the emergency department BIBA for alcohol intoxication. Patient currently has no complaints as pt is asleep. There are no obvious injuries noted. <Julia Woodruff - Last Filed: 09/18/16 02:27> - General History Source: Patient, EMS <Altaf Iniguez - Last Filed: 09/18/16 19:59> - General Chief Complaint: Alcohol intoxication Stated Complaint: ALCOHOL INTOXICATION Time Seen by Provider: 09/18/16 02:20 Past History <Julia Woodruff - Last Filed: 09/18/16 02:27> - Past Medical History Anemia: No Asthma: No Cancer: Yes (mesothelioma) Cardiac Disorders: No CVA: No COPD: No CHF: No Dementia: No Diabetes: No GI Disorders: No Disorders: No HTN: No Hypercholesterolemia: No Kidney Stones: No Liver Disease: No Psychiatric Problems: Yes (alcoholism) Suicide Attempt (Hx): No Seizures: No Thyroid Disease: No - Surgical History Abdominal Surgery: No Appendectomy: No Cardiac Surgery: No Cholecystectomy: No Lung Surgery: No Neurologic Surgery: No Orthopedic Surgery: No - Family Disease History Family Disease History: CA: Mother - Reproductive History Testicular Surgery: No - Immunization History TDAP Vaccination: Yes Immunization Up to Date: Yes - Psycho/Social/Smoking Cessation Hx Anxiety: No Suicidal Ideation: No Smoking Status: No Smoking History: Never smoked Have you smoked in the past 12 months: No Number of Cigarettes Smoked Daily: 0 Cigars Per Day: 0 'Breaking Loose' booklet given: 08/23/16 Hx Alcohol Use: Yes Drug/Substance Use Hx: No Substance Use Type: Alcohol Hx Substance Use Treatment: Yes ([facility]) <Altaf Iniguez - Last Filed: 09/18/16 19:59> - Past Medical History Allergies/Adverse Reactions: Allergies Allergy/AdvReac Type Severity Reaction Status Date / Time Fish Containing Products Allergy Verified 09/17/16 20:25 Home Medications: Ambulatory Orders NK [No Known Home Medication] 07/12/16 Review of Systems - Review of Systems Able to Perform ROS?: Yes Comments:: 09/18/16 02:27 CONSTITUTIONAL: Absent: fever, no chills, no fatigue EYES: Absent: visual changes ENT: Absent: ear pain, no sore throat CARDIOVASCULAR: Absent: chest pain, no palpitations RESPIRATORY: Absent: cough, no SOB GI: Absent: abdominal pain, no nausea, no vomiting, no constipation, no diarrhea GENITOURINARY: Absent: dysuria, no frequency, no hematuria MUSCULOSKELETAL: Absent: back pain, no arthralgia, no myalgia SKIN: Absent: rash NEURO: Absent: headache <Julia Woodruff - Last Filed: 09/18/16 02:27> *Physical Exam - Vital Signs Last Vital Signs Temp Pulse Resp BP Pulse Ox 98.6 F 73 20 92/44 95 09/17/16 20:26 09/17/16 20:26 09/17/16 20:26 09/17/16 20:26 09/17/16 20:26 - Physical Exam Comments: 09/18/16 02:28 GENERAL: Well-appearing, well-nourished. No apparent distress. +AOB HEENT: Normocephalic, atraumatic. PERRL, EOM intact. CARDIOVASCULAR: Normal S1, S2. Regular rate and rhythm. PULMONARY: Clear to auscultation bilaterally. ABDOMEN: Soft, non-distended, non-tender. EXTREMITIES: Normal ROM in all four extremities. No gross deformities. SKIN: Warm, dry. No rash NEUROLOGICAL: Pt is asleep. No gross focal neurological deficits. <Julia Woodruff - Last Filed: 09/18/16 02:27> - Vital Signs Last Vital Signs Temp Pulse Resp BP Pulse Ox 98.6 F 73 20 92/44 95 09/17/16 20:26 09/17/16 20:26 09/17/16 20:26 09/17/16 20:26 09/17/16 20:26 <Altaf Iniguez - Last Filed: 09/18/16 19:59> Medical Decision Making - Medical Decision Making 09/18/16 19:58 <Altaf Iniguez - Last Filed: 09/18/16 19:59> *DC/Admit/Observation/Transfer - Attestations Scribe Attestion: 09/18/16 02:28 Documentation prepared by Julia Woodruff, acting as medical artist for Altaf Iniguez MD <Julia Woodruff - Last Filed: 09/18/16 02:27> - Discharge Dispostion Admit: No <Altaf Iniguez - Last Filed: 09/18/16 19:59> Diagnosis at time of Disposition: Eloped, Alcohol intoxication - Discharge Dispostion Disposition: ELOPED Condition at time of disposition: Stable
--- NOTE | 2016-09-18 07:36 | PDOC ---
*Physical Exam - Vital Signs Last Vital Signs Temp Pulse Resp BP Pulse Ox 98.6 F 73 20 92/44 95 09/17/16 20:26 09/17/16 20:26 09/17/16 20:26 09/17/16 20:26 09/17/16 20:26 - Physical Exam Comments: 09/18/16 07:05 Sign-out received from outgoing Emergency Physician Pt interviewed and examined He is sleeping, but arouses to verbal stimuli He denies any pain or trauma He reports drinking store-bought alcohol He seems moderately intoxicated Will continue to observe *DC/Admit/Observation/Transfer Diagnosis at time of Disposition: Eloped, Alcohol intoxication - Discharge Dispostion Disposition: ELOPED
== END 2016-09-18 09:20 | disposition left against medical advice (07) ==
LOC: JER 20:14
DX: F10.120 Alcohol abuse with intoxication, uncomplicated (principal); Z53.21 Procedure and treatment not carried out due to patient leaving prior to being seen by health care provider; C45.9 Mesothelioma, unspecified
CPT/HCPCS: 99283-25

== ENCOUNTER 2016-09-18 12:55 | Emergency (ER) | payer OTHER ==
--- NOTE | 2016-09-18 13:09 | PDOC ---
History of Present Illness - General Stated Complaint: INTOX Time Seen by Provider: 09/18/16 13:06 History Source: Patient, EMS Exam Limitations: No Limitations - History of Present Illness Initial Comments: 09/18/16 13:06 The patient is a 61-year-old male, with a significant past medical history of chronic alcohol use, well known to our emergency department, just seen early this morning for alcohol intoxication and he eloped, who returns with EMS, after he was found intoxicated in public. The patient is able to provide a history, and reports drinking store-bought alcohol. He denies trauma. He has no complaints. Past History - Past Medical History Allergies/Adverse Reactions: Allergies Allergy/AdvReac Type Severity Reaction Status Date / Time Fish Containing Products Allergy Verified 09/18/16 13:09 Home Medications: Ambulatory Orders NK [No Known Home Medication] 07/12/16 Anemia: No Asthma: No Cancer: Yes (mesothelioma) Cardiac Disorders: No CVA: No COPD: No CHF: No Dementia: No Diabetes: No GI Disorders: No Disorders: No HTN: No Hypercholesterolemia: No Kidney Stones: No Liver Disease: No Psychiatric Problems: Yes (alcoholism) Suicide Attempt (Hx): No Seizures: No Thyroid Disease: No - Surgical History Abdominal Surgery: No Appendectomy: No Cardiac Surgery: No Cholecystectomy: No Lung Surgery: No Neurologic Surgery: No Orthopedic Surgery: No - Family Disease History Family Disease History: CA: Mother - Reproductive History Testicular Surgery: No - Immunization History TDAP Vaccination: Yes Immunization Up to Date: Yes - Psycho/Social/Smoking Cessation Hx Anxiety: No Suicidal Ideation: No Smoking Status: No Smoking History: Never smoked Have you smoked in the past 12 months: No Number of Cigarettes Smoked Daily: 0 Cigars Per Day: 0 'Breaking Loose' booklet given: 08/23/16 Hx Alcohol Use: Yes Drug/Substance Use Hx: No Substance Use Type: Alcohol Hx Substance Use Treatment: Yes ([facility]) Review of Systems - Review of Systems Comments:: 09/18/16 13:07 CONSTITUTIONAL: Absent: fever, chills, fatigue EYES: Absent: visual changes ENT: Absent: ear pain, sore throat CARDIOVASCULAR: Absent: chest pain, palpitations, loss of consciousness RESPIRATORY: Absent: cough, SOB GI: Absent: abdominal pain, nausea, vomiting, constipation, diarrhea GENITOURINARY: Absent: dysuria, frequency, hematuria MUSKULOSKELETAL: Absent: back pain, arthralgia, myalgia SKIN: Absent: rash NEURO: Absent: headache, dizziness *Physical Exam - Physical Exam Comments: 09/18/16 13:07 GENERAL: Well-appearing, well-nourished. No apparent distress. HEENT: Normocephalic, atraumatic. PERRL, EOM intact. CARDIOVASCULAR: Normal S1, S2. Regular rate and rhythm. PULMONARY: Clear to auscultation bilaterally. ABDOMEN: Soft, non-distended, non-tender. EXTREMITIES: Normal ROM in all four extremities. No gross deformities. SKIN: Warm, dry. No rash NEUROLOGICAL: No focal neurological deficits. Medical Decision Making - Medical Decision Making 09/18/16 13:07 The patient is well-appearing and in no acute distress he appears mildly intoxicated and can walk without instability and speak without slurring There is no evidence of trauma Will observe and hold for some variety Clinical impression: Alcohol intoxication 09/18/16 14:50 The patient seems clinically sober He ate without event 09/18/16 15:11 The patient eloped *DC/Admit/Observation/Transfer Diagnosis at time of Disposition: Alcohol abuse, Alcohol intoxication - Discharge Dispostion Disposition: ELOPED - Patient Instructions Printed Discharge Instructions: DI for Alcohol Abuse Additional Instructions: Return to the emergency department immediately with ANY new, persistent or worsening symptoms. You MUST call and follow up with your doctor tomorrow. Please make sure your doctor reviews the results of your emergency department evaluation.
[2016-09-18 13:11] VITALS: BP 90/68; PULSE 81; TEMP 97.9; BMI 32.1
== END 2016-09-18 15:00 | disposition left against medical advice (07) ==
LOC: JER 12:55
DX: F10.220 Alcohol dependence with intoxication, uncomplicated (principal); C45.9 Mesothelioma, unspecified
CPT/HCPCS: 99281-25

== ENCOUNTER 2016-09-18 17:39 | Emergency (ER) | payer OTHER ==
[2016-09-18 17:52] VITALS: BP 109/78; PULSE 81; TEMP 97.9; BMI 32.1
--- NOTE | 2016-09-19 00:56 | PDOC ---
History of Present Illness - General Chief Complaint: Alcohol intoxication Stated Complaint: ALCOHOL INTOXICATION Time Seen by Provider: 09/18/16 18:58 History Source: EMS Exam Limitations: Clinical Condition - History of Present Illness Initial Comments: 09/19/16 00:54 Patient 61-year-old male with history of alcohol abuse, well-known to this M.D. is brought in by EMS for acute alcohol intoxication. Patient reports drinking large amount of alcohol shortly after discharge from this ER earlier in the day. Patient denies trauma or toxic coingestions. REVIEW OF SYSTEMS EXAMINATION CONSTITUTIONAL: Somnolent but easily arousable to verbal stimuli, follows commands, + alcohol on breath well-nourished; in no apparent distress HEAD: Normocephalic; atraumatic EYES: PERRL; EOM intact ENMT: External appears normal; normal oropharynx NECK: Supple; non-tender; no cervical lymphadenopathy CARD: Normal S1, S2; no murmurs, rubs, or gallops RESP: Normal chest excursion with respiration; breath sounds clear and equal bilaterally; no wheezes, rhonchi, or rales ABD: Soft, non-distended; non-tender; no palpable organomegaly, no palpable hernias EXT: Normal ROM in all four extremities; non-tender to palpation; distal pulses intact SKIN: Warm, dry, no rash NEURO: Somnolent but easily arousable; moving all extremities symmetrically; there is 5 of 54; gait-deferred at this time. Past History - Past Medical History Allergies/Adverse Reactions: Allergies Allergy/AdvReac Type Severity Reaction Status Date / Time Fish Containing Products Allergy Verified 09/18/16 17:52 Home Medications: Ambulatory Orders NK [No Known Home Medication] 07/12/16 Anemia: No Asthma: No Cancer: Yes (mesothelioma) Cardiac Disorders: No CVA: No COPD: No CHF: No Dementia: No Diabetes: No GI Disorders: No Disorders: No HTN: No Hypercholesterolemia: No Kidney Stones: No Liver Disease: No Psychiatric Problems: Yes (alcoholism) Suicide Attempt (Hx): No Seizures: No Thyroid Disease: No - Surgical History Abdominal Surgery: No Appendectomy: No Cardiac Surgery: No Cholecystectomy: No Lung Surgery: No Neurologic Surgery: No Orthopedic Surgery: No - Family Disease History Family Disease History: CA: Mother - Reproductive History Testicular Surgery: No - Immunization History TDAP Vaccination: Yes Immunization Up to Date: Yes - Psycho/Social/Smoking Cessation Hx Anxiety: No Suicidal Ideation: No Smoking Status: No Smoking History: Current some day smoker Have you smoked in the past 12 months: No Number of Cigarettes Smoked Daily: 0 Cigars Per Day: 0 Information on smoking cessation initiated: No 'Breaking Loose' booklet given: 08/23/16 Hx Alcohol Use: Yes Drug/Substance Use Hx: No Substance Use Type: Alcohol Hx Substance Use Treatment: Yes ([facility]) *Physical Exam - Vital Signs Last Vital Signs Temp Pulse Resp BP Pulse Ox 97.9 F 81 18 109/78 94 L 09/18/16 17:50 09/18/16 17:50 09/18/16 17:50 09/18/16 17:50 09/18/16 17:50 Medical Decision Making - Medical Decision Making 09/19/16 00:56 Patient 61-year-old male with history of alcohol abuse who presents with acute alcohol intoxication. Will observe for clinical sobriety. Will discharge when ambulates with steady gait. *DC/Admit/Observation/Transfer Diagnosis at time of Disposition: Eloped - Discharge Dispostion Disposition: AGAINST MEDICAL ADVICE
[2016-09-19] MEDS ORDERED: chlordiazePOXIDE HCL 25 MG CAPSULE PO ONE (05:28)
== END 2016-09-19 05:45 | disposition left against medical advice (07) ==
LOC: JER 17:39
DX: F10.220 Alcohol dependence with intoxication, uncomplicated (principal); C45.9 Mesothelioma, unspecified
CPT/HCPCS: 99281-25

== ENCOUNTER 2016-09-19 16:42 | Emergency (ER) | payer OTHER ==
[2016-09-19 17:51] VITALS: BP 126/73; PULSE 89; TEMP 97.8; BMI 31.4
--- NOTE | 2016-09-19 19:56 | PDOC ---
History of Present Illness - General History Source: Patient Exam Limitations: No Limitations - History of Present Illness Initial Comments: 09/19/16 22:21 The patient is a 61 year old male with a significant past medical history of chronic back pain and alcohol abuse, well known to the ED, brought in by EMS for alcohol intoxication. The patient denies any pain. The patient denies trauma or injury. The patient has no complaints at this time. <April Jenkins - Last Filed: 09/19/16 22:20> <Lorri Kumar - Last Filed: 09/22/16 05:36> - General Chief Complaint: Alcohol intoxication Stated Complaint: INTOX Time Seen by Provider: 09/19/16 19:23 Past History <April Jenkins - Last Filed: 09/19/16 22:20> - Past Medical History Anemia: No Asthma: No Cancer: Yes (mesothelioma) Cardiac Disorders: No CVA: No COPD: No CHF: No Dementia: No Diabetes: No GI Disorders: No Disorders: No HTN: No Hypercholesterolemia: No Kidney Stones: No Liver Disease: No Psychiatric Problems: Yes (alcoholism) Suicide Attempt (Hx): No Seizures: No Thyroid Disease: No - Surgical History Abdominal Surgery: No Appendectomy: No Cardiac Surgery: No Cholecystectomy: No Lung Surgery: No Neurologic Surgery: No Orthopedic Surgery: No - Family Disease History Family Disease History: CA: Mother - Reproductive History Testicular Surgery: No - Immunization History TDAP Vaccination: Yes Immunization Up to Date: Yes - Psycho/Social/Smoking Cessation Hx Anxiety: No Suicidal Ideation: No Smoking Status: No Smoking History: Never smoked Have you smoked in the past 12 months: No Number of Cigarettes Smoked Daily: 0 Cigars Per Day: 0 'Breaking Loose' booklet given: 08/23/16 Hx Alcohol Use: Yes Drug/Substance Use Hx: No Substance Use Type: Alcohol Hx Substance Use Treatment: Yes ([facility]) <Lorri Kumar - Last Filed: 09/22/16 05:36> - Past Medical History Allergies/Adverse Reactions: Allergies Allergy/AdvReac Type Severity Reaction Status Date / Time Fish Containing Products Allergy Verified 09/19/16 17:47 Home Medications: Ambulatory Orders NK [No Known Home Medication] 07/12/16 Review of Systems - Review of Systems Able to Perform ROS?: Yes Comments:: 09/19/16 22:21 GENERAL/CONSTITUTIONAL: No fever or chills. No weakness. HEAD, EYES, EARS, NOSE AND THROAT: No change in vision. No ear pain or discharge. No sore throat. CARDIOVASCULAR: No chest pain or shortness of breath. RESPIRATORY: No cough, wheezing, or hemoptysis. GASTROINTESTINAL: No nausea, vomiting, diarrhea or constipation. GENITOURINARY: No dysuria, frequency, or change in urination. MUSCULOSKELETAL: No joint or muscle swelling or pain. No neck or back pain. SKIN: No rash NEUROLOGIC: No headache, vertigo, loss of consciousness, or change in strength/ sensation. ENDOCRINE: No increased thirst. No abnormal weight change. HEMATOLOGIC/LYMPHATIC: No anemia, easy bleeding, or history of blood clots. ALLERGIC/IMMUNOLOGIC: No hives or skin allergy. <April Jenkins - Last Filed: 09/19/16 22:20> *Physical Exam - Vital Signs Last Vital Signs Temp Pulse Resp BP Pulse Ox 97.8 F 89 20 126/73 93 L 09/19/16 17:47 09/19/16 17:47 09/19/16 17:47 09/19/16 17:47 09/19/16 17:47 - Physical Exam Comments: 09/19/16 22:21 GENERAL: Asleep but easily rousable. Fully oriented, in no acute distress HEAD: No signs of trauma EYES: PERRLA, EOMI, sclera anicteric, conjunctiva clear ENT: Auricles normal inspection, hearing grossly normal, nares patent, oropharynx clear without exudates. Moist mucosa NECK: Normal ROM, supple, no lymphadenopathy, JVD, or masses LUNGS: Breath sounds equal, clear to auscultation bilaterally. No wheezes, and no crackles HEART: Regular rate and rhythm, normal S1 and S2, no murmurs, rubs or gallops ABDOMEN: Soft, nontender, normoactive bowel sounds. No guarding, no rebound. No masses EXTREMITIES: Normal range of motion, no edema. No clubbing or cyanosis. No cords, erythema, or tenderness NEUROLOGICAL: Cranial nerves II through XII grossly intact. Normal speech, normal gait SKIN: Warm, Dry, normal turgor, no rashes or lesions noted. <April Jenkins - Last Filed: 09/19/16 22:20> - Vital Signs Last Vital Signs Temp Pulse Resp BP Pulse Ox 97.8 F 89 20 126/73 93 L 09/19/16 17:47 09/19/16 17:47 09/19/16 17:47 09/19/16 17:47 09/19/16 17:47 <Lorri Kumar - Last Filed: 09/22/16 05:36> Medical Decision Making - Medical Decision Making 09/22/16 05:34 Pt comes with his usual alcohol intox; he is very clear that he feels well and he is here simply to sleep. In the AM he got up to leave. Exam in the ER is normal, in that his lungs and hear sound normal. He is A+Ox3 and he has no abdominal or back pain. He is moving all extemities and conversing normally. Pt is unkempt as he lives in a skilled nursing with no shower or washing machine facilities. <Lorri Kumar - Last Filed: 09/22/16 05:36> *DC/Admit/Observation/Transfer - Attestations Scribe Attestion: 09/19/16 22:22 Documentation prepared by April Jenkins, acting as medical auditor for Lorri Kumar MD. <April Jenkins - Last Filed: 09/19/16 22:20> - Discharge Dispostion Admit: No <Lorri Kumar - Last Filed: 09/22/16 05:36> Diagnosis at time of Disposition: Alcohol abuse - Discharge Dispostion Disposition: HOME Condition at time of disposition: Stable - Patient Instructions Printed Discharge Instructions: DI for Alcohol Abuse
== END 2016-09-20 06:00 | disposition home or self-care (01) ==
LOC: JER 16:42
DX: F10.220 Alcohol dependence with intoxication, uncomplicated (principal); C45.9 Mesothelioma, unspecified
CPT/HCPCS: 99282-25

== ENCOUNTER 2016-09-20 14:37 | Emergency (ER) | payer OTHER ==
--- NOTE | 2016-09-20 14:57 | PDOC ---
History of Present Illness - General History Source: Patient, Old Records Exam Limitations: No Limitations, Intoxication <Verona Thomas - Last Filed: 09/20/16 15:06> - General History Source: Patient Exam Limitations: No Limitations - History of Present Illness Initial Comments: 09/20/16 15:15 The patient is a 61 year old male with a significant past medical history of alcohol abuse and chronic back pain, who presents to the ER via EMS for alcohol intoxication. Patient states he drank a pint of vodka today. He denies any pain , head or neck trauma, and any other complaints. <Sofi Jama - Last Filed: 09/20/16 15:17> - General Chief Complaint: Alcohol intoxication Stated Complaint: ALCOHOL INTOXICATION Time Seen by Provider: 09/20/16 14:55 Past History - Past Medical History Anemia: No Asthma: No Cancer: Yes (mesothelioma) Cardiac Disorders: No CVA: No COPD: No CHF: No Dementia: No Diabetes: No GI Disorders: No Disorders: No HTN: No Hypercholesterolemia: No Kidney Stones: No Liver Disease: No Psychiatric Problems: Yes (alcoholism) Suicide Attempt (Hx): No Seizures: No Thyroid Disease: No - Surgical History Abdominal Surgery: No Appendectomy: No Cardiac Surgery: No Cholecystectomy: No Lung Surgery: No Neurologic Surgery: No Orthopedic Surgery: No - Family Disease History Family Disease History: CA: Mother - Reproductive History Testicular Surgery: No - Immunization History TDAP Vaccination: Yes Immunization Up to Date: Yes - Psycho/Social/Smoking Cessation Hx Anxiety: No Suicidal Ideation: No Smoking Status: No Smoking History: Never smoked Have you smoked in the past 12 months: No Number of Cigarettes Smoked Daily: 0 Cigars Per Day: 0 'Breaking Loose' booklet given: 08/23/16 Hx Alcohol Use: Yes Drug/Substance Use Hx: No Substance Use Type: Alcohol Hx Substance Use Treatment: Yes ([facility]) <Verona Thomas - Last Filed: 09/20/16 15:06> <Sofi Jama - Last Filed: 09/20/16 15:17> - Past Medical History Allergies/Adverse Reactions: Allergies Allergy/AdvReac Type Severity Reaction Status Date / Time Fish Containing Products Allergy Verified 09/20/16 15:09 Home Medications: Ambulatory Orders NK [No Known Home Medication] 07/12/16 Review of Systems - Review of Systems Comments:: 09/20/16 15:15 GENERAL/CONSTITUTIONAL: No fever or chills. No weakness. HEAD, EYES, EARS, NOSE AND THROAT: No change in vision. No ear pain or discharge. No sore throat. CARDIOVASCULAR: No chest pain or shortness of breath. RESPIRATORY: No cough, wheezing, or hemoptysis. GASTROINTESTINAL: No nausea, vomiting, diarrhea or constipation. GENITOURINARY: No dysuria, frequency, or change in urination. MUSCULOSKELETAL: No joint or muscle swelling or pain. No neck or back pain. SKIN: No rash NEUROLOGIC: No headache, vertigo, loss of consciousness, or change in strength/ sensation. ENDOCRINE: No increased thirst. No abnormal weight change. HEMATOLOGIC/LYMPHATIC: No anemia, easy bleeding, or history of blood clots. ALLERGIC/IMMUNOLOGIC: No hives or skin allergy. <Uts,Sofi - Last Filed: 09/20/16 15:17> *Physical Exam - Vital Signs Last Vital Signs Temp Pulse Resp BP Pulse Ox 98.8 F 88 20 134/74 95 09/20/16 14:40 09/20/16 14:40 09/20/16 14:40 09/20/16 14:40 09/20/16 14:40 - Physical Exam Comments: 09/20/16 15:16 GENERAL: Morbidly Obese. Somnolant, in no acute distress HEAD: No signs of trauma EYES: PERRLA, EOMI, sclera anicteric, conjunctiva clear ENT: Auricles normal inspection, hearing grossly normal, nares patent, oropharynx clear without exudates. Moist mucosa NECK: Normal ROM, supple, no lymphadenopathy, JVD, or masses LUNGS: Breath sounds equal, clear to auscultation bilaterally. No wheezes, and no crackles HEART: Regular rate and rhythm, normal S1 and S2, no murmurs, rubs or gallops ABDOMEN: Soft, nontender, normoactive bowel sounds. No guarding, no rebound. No masses EXTREMITIES: Normal range of motion, no edema. No clubbing or cyanosis. No cords, erythema, or tenderness NEUROLOGICAL: Cranial nerves II through XII grossly intact. SKIN: Warm, Dry, normal turgor, no rashes or lesions noted. <Atoomas,Sofi - Last Filed: 09/20/16 15:17> Medical Decision Making - Medical Decision Making 09/20/16 15:06 61-year-old male with history of alcohol is on well known to the emergency department who presents to the emergency department today with complaints of "I' m intoxicated". Differential diagnosis includes but is not limited to: Intoxication, electrolyte abnormality, dehydration. Plan: 1. Observe and reevaluate <Verona Thomas - Last Filed: 09/20/16 15:06> *DC/Admit/Observation/Transfer - Attestations Physician Attestion: 09/20/16 15:07 I, Dr. Verona Tohmas, attest that the scribes documentation that appears above has been prepared under my direction and personally reviewed by me in its entirety. I confirmed that the note above accurately reflects all work, treatment, procedures, and medical decision-making performed by me. <Verona Thomas - Last Filed: 09/20/16 15:06> - Attestations Scribe Attestion: 09/20/16 15:17 Documentation prepared by Sofi Jama, acting as biomedical manager for Verona Thomas MD. <Sofi Jama - Last Filed: 09/20/16 15:17> Diagnosis at time of Disposition: Alcohol intoxication
[2016-09-20 15:12] VITALS: BP 134/74; PULSE 88; TEMP 98.8; BMI 31.5
== END 2016-09-20 20:53 | disposition home or self-care (01) ==
LOC: JER 14:37
DX: F10.120 Alcohol abuse with intoxication, uncomplicated (principal); C45.9 Mesothelioma, unspecified
CPT/HCPCS: 99282-25

== ENCOUNTER 2016-09-20 21:55 | Emergency (ER) | payer OTHER ==
[2016-09-20 22:14] VITALS: BP 105/61; PULSE 79; TEMP 97; BMI 31.5
--- NOTE | 2016-09-21 04:57 | PDOC ---
History of Present Illness - General History Source: Patient, Old Records Exam Limitations: No Limitations - History of Present Illness Initial Comments: 09/21/16 06:41 The patient is a 61 year old male well known to the ED with past medical history of chronic alcoholism who presents to the ED with his typical alcohol intoxication. The patient was recently seen in the ED yesterday in which he ended up leaving AMA, went to the liquor store, and ended up arriving back to the ED via ambulance a few hours later. In the ED, he complains he is in withdrawal and requests detox. He denies any other complaints. <Mary Galeas - Last Filed: 09/21/16 06:37> <Lorri Kumar - Last Filed: 09/21/16 07:03> - General Chief Complaint: Alcohol intoxication Stated Complaint: INTOX Time Seen by Provider: 09/20/16 23:02 Past History <Mary Galeas - Last Filed: 09/21/16 06:37> - Past Medical History Anemia: No Asthma: No Cancer: Yes (mesothelioma) Cardiac Disorders: No CVA: No COPD: No CHF: No Dementia: No Diabetes: No GI Disorders: No Disorders: No HTN: No Hypercholesterolemia: No Kidney Stones: No Liver Disease: No Psychiatric Problems: Yes (alcoholism) Suicide Attempt (Hx): No Seizures: No Thyroid Disease: No - Surgical History Abdominal Surgery: No Appendectomy: No Cardiac Surgery: No Cholecystectomy: No Lung Surgery: No Neurologic Surgery: No Orthopedic Surgery: No - Family Disease History Family Disease History: CA: Mother - Reproductive History Testicular Surgery: No - Immunization History TDAP Vaccination: Yes Immunization Up to Date: Yes - Psycho/Social/Smoking Cessation Hx Anxiety: No Suicidal Ideation: No Smoking Status: No Smoking History: Never smoked Have you smoked in the past 12 months: No Number of Cigarettes Smoked Daily: 0 Cigars Per Day: 0 'Breaking Loose' booklet given: 08/23/16 Hx Alcohol Use: Yes Drug/Substance Use Hx: No Substance Use Type: Alcohol Hx Substance Use Treatment: Yes ([facility]) <Lorri Kumar - Last Filed: 09/21/16 07:03> - Past Medical History Allergies/Adverse Reactions: Allergies Allergy/AdvReac Type Severity Reaction Status Date / Time Fish Containing Products Allergy Verified 09/20/16 22:06 Home Medications: Ambulatory Orders NK [No Known Home Medication] 07/12/16 Review of Systems - Review of Systems Able to Perform ROS?: Yes Comments:: 09/21/16 06:45 GENERAL/CONSTITUTIONAL: No fever or chills. No weakness. HEAD, EYES, EARS, NOSE AND THROAT: No change in vision. No ear pain or discharge. No sore throat. CARDIOVASCULAR: No chest pain or shortness of breath. RESPIRATORY: No cough, wheezing, or hemoptysis. GASTROINTESTINAL: No nausea, vomiting, diarrhea or constipation. GENITOURINARY: No dysuria, frequency, or change in urination. MUSCULOSKELETAL: No joint or muscle swelling or pain. No neck or back pain. SKIN: No rash NEUROLOGIC: No headache, vertigo, loss of consciousness, or change in strength/ sensation. ENDOCRINE: No increased thirst. No abnormal weight change. HEMATOLOGIC/LYMPHATIC: No anemia, easy bleeding, or history of blood clots. ALLERGIC/IMMUNOLOGIC: No hives or skin allergy. All Other Systems: Reviewed and Negative <Mary Galeas - Last Filed: 09/21/16 06:37> *Physical Exam - Vital Signs Last Vital Signs Temp Pulse Resp BP Pulse Ox 97 F L 79 18 105/61 99 09/20/16 22:03 09/20/16 22:03 09/20/16 22:03 09/20/16 22:03 09/20/16 22:03 - Physical Exam Comments: 09/21/16 06:45 GENERAL: Sleeping upon initial presentation, disheveled, malodorous. In no acute distress. HEAD: No signs of trauma EYES: PERRLA, EOMI, sclera anicteric, conjunctiva clear ENT: Auricles normal inspection, hearing grossly normal, nares patent, oropharynx clear without exudates. Moist mucosa NECK: Normal ROM, supple, no lymphadenopathy, JVD, or masses LUNGS: Breath sounds equal, clear to auscultation bilaterally. No wheezes, and no crackles HEART: Protuberant belly. Regular rate and rhythm, normal S1 and S2, no murmurs , rubs or gallops ABDOMEN: Soft, nontender, normoactive bowel sounds. No guarding, no rebound. No masses EXTREMITIES: Normal range of motion, no edema. No clubbing or cyanosis. No cords, erythema, or tenderness NEUROLOGICAL: Cranial nerves II through XII grossly intact. Normal speech. SKIN: Warm, Dry, normal turgor, no rashes or lesions noted. <Mary Galeas - Last Filed: 09/21/16 06:37> - Vital Signs Last Vital Signs Temp Pulse Resp BP Pulse Ox 97 F L 79 18 105/61 99 09/20/16 22:03 09/20/16 22:03 09/20/16 22:03 09/20/16 22:03 09/20/16 22:03 <Lorri Kumar - Last Filed: 09/21/16 07:03> Medical Decision Making - Medical Decision Making 09/21/16 07:01 Pt will be transferred to Psych ER at [facility] via transport [employer] <Lorri Kumar - Last Filed: 09/21/16 07:03> *DC/Admit/Observation/Transfer - Attestations Scribe Attestion: 09/21/16 06:47 Documentation prepared by Mary Galeas, acting as medical nurse for Lorri Kumar MD. <Mary Galeas - Last Filed: 09/21/16 06:37> - Discharge Dispostion Admit: No <Lorri Kumar - Last Filed: 09/21/16 07:03> Diagnosis at time of Disposition: Alcohol abuse, Alcohol dependence - Discharge Dispostion Disposition: HOME Condition at time of disposition: Fair
[2016-09-21] MEDS ORDERED: chlordiazePOXIDE HCL 25 MG CAPSULE PO ONE (07:01)
== END 2016-09-21 07:48 | disposition home or self-care (01) ==
LOC: JER 21:55
DX: F10.120 Alcohol abuse with intoxication, uncomplicated (principal); C45.9 Mesothelioma, unspecified
CPT/HCPCS: 99282-25

== ENCOUNTER 2016-09-24 15:03 | Emergency (ER) | payer OTHER ==
[2016-09-24 15:40] VITALS: BP 92/51; PULSE 85; BMI 35.9
== END 2016-09-24 16:28 | disposition left against medical advice (07) ==
LOC: JER 15:03
DX: Z53.21 Procedure and treatment not carried out due to patient leaving prior to being seen by health care provider (principal)
CPT/HCPCS: 99281-25

== ENCOUNTER → 2016-09-24 | Emergency (ER) | payer OTHER ==
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
[2016-09-24 20:20] VITALS: BP 105/53; PULSE 80; TEMP 97.3; BMI 35.9
--- NOTE | 2016-09-24 20:24 | PDOC ---
*Physical Exam - Vital Signs Last Vital Signs Temp Pulse Resp BP Pulse Ox 97.3 F L 80 14 105/53 94 L 09/24/16 20:17 09/24/16 20:17 09/24/16 20:17 09/24/16 20:17 09/24/16 20:17 09/25/16 19:33 Medical Decision Making - Medical Decision Making 09/24/16 20:23 agree with care from MICHAEL Casanova *DC/Admit/Observation/Transfer Diagnosis at time of Disposition: Alcohol abuse - Discharge Dispostion Disposition: AGAINST MEDICAL ADVICE Condition at time of disposition: Stable Admit: No
--- NOTE | 2016-09-25 07:24 | PDOC ---
*Physical Exam - Vital Signs Last Vital Signs Temp Pulse Resp BP Pulse Ox 97.3 F L 80 14 105/53 94 L 09/24/16 20:17 09/24/16 20:17 09/24/16 20:17 09/24/16 20:17 09/24/16 20:17 Medical Decision Making - Medical Decision Making 09/25/16 07:23 Pt walked out of ED, seen at bus stop by ED staff *DC/Admit/Observation/Transfer Diagnosis at time of Disposition: Alcohol abuse - Discharge Dispostion Disposition: ELOPED Condition at time of disposition: Stable
== END | disposition left against medical advice (07) ==
LOC: JER 19:40
DX: F10.120 Alcohol abuse with intoxication, uncomplicated (principal); C45.9 Mesothelioma, unspecified
CPT/HCPCS: 70450-TC; 70486-TC; 72125-TC; 99281-25

== ENCOUNTER 2016-09-25 13:01 | Emergency (ER) | payer OTHER ==
--- NOTE | 2016-09-25 13:51 | PDOC ---
History of Present Illness - History of Present Illness Initial Comments: 09/25/16 15:22 Patient is a 61 year old male with significant medical hx of COPD and mesothelioma who has been brought to the ED by EMS. The patient is alert, awake and claims he did not have any alcohol today. He is requesting a sandwich. <Adelina Corrales - Last Filed: 09/25/16 15:21> - General History Source: Patient Exam Limitations: No Limitations <Sadia Cornell - Last Filed: 09/26/16 12:48> - General Chief Complaint: Alcohol intoxication Stated Complaint: ALCOHOL INTOX Time Seen by Provider: 09/25/16 13:09 Past History <Adelina Corrales - Last Filed: 09/25/16 15:21> - Past Medical History Anemia: No Asthma: No Cancer: Yes (mesothelioma) Cardiac Disorders: No CVA: No COPD: No CHF: No Dementia: No Diabetes: No GI Disorders: No Disorders: No HTN: No Hypercholesterolemia: No Kidney Stones: No Liver Disease: No Psychiatric Problems: Yes (alcoholism) Suicide Attempt (Hx): No Seizures: No Thyroid Disease: No - Surgical History Abdominal Surgery: No Appendectomy: No Cardiac Surgery: No Cholecystectomy: No Lung Surgery: No Neurologic Surgery: No Orthopedic Surgery: No - Family Disease History Family Disease History: CA: Mother - Reproductive History Testicular Surgery: No - Immunization History TDAP Vaccination: Yes Immunization Up to Date: Yes - Psycho/Social/Smoking Cessation Hx Anxiety: No Suicidal Ideation: No Smoking Status: No Smoking History: Never smoked Have you smoked in the past 12 months: No Number of Cigarettes Smoked Daily: 0 Cigars Per Day: 0 'Breaking Loose' booklet given: 08/23/16 Hx Alcohol Use: Yes Drug/Substance Use Hx: No Substance Use Type: Alcohol Hx Substance Use Treatment: Yes ([facility]) <Sadia Cornell - Last Filed: 09/26/16 12:48> - Past Medical History Allergies/Adverse Reactions: Allergies Allergy/AdvReac Type Severity Reaction Status Date / Time Fish Containing Products Allergy Verified 09/24/16 20:16 Home Medications: Ambulatory Orders NK [No Known Home Medication] 07/12/16 Review of Systems - Review of Systems Comments:: 09/25/16 15:23 GENERAL/CONSTITUTIONAL: No: fever, chills, weakness, loss of appetite. HEAD, EYES, EARS, NOSE AND THROAT: No: change in vision, ear pain, discharge, sore throat, throat swelling. CARDIOVASCULAR: No: chest pain, lightheadedness, palpitations, syncope RESPIRATORY: No: cough, shortness of breath, wheezing, hemoptysis, stridor. GASTROINTESTINAL: No: nausea, vomiting, abdominal cramping, diarrhea, rectal bleeding, constipation. GENITOURINARY: No: dysuria, hematuria, frequency, urgency, flank pain. MUSCULOSKELET AL: No: back pain, neck pain, joint pain, muscle swelling or pain SKIN AND BREASTS: No: lesions, pallor, rash or easy bruising. NEUROLOGIC: No: headache, vertigo, paresthesias, weakness ENDOCRINE: No: unexplained weight gain or loss HEMATOLOGIC/LYMPHATIC: No: anemia, easy bleeding, swelling nodes <Adelina Corrales - Last Filed: 09/25/16 15:21> *Physical Exam - Vital Signs Last Vital Signs Temp Pulse Resp BP Pulse Ox 98.3 F 82 20 92/61 96 09/25/16 13:57 09/25/16 13:57 09/25/16 13:57 09/25/16 13:57 09/25/16 13:57 - Physical Exam Comments: 09/25/16 15:25 GENERAL: Disheveled. Awake and alert. The patient is in no acute distress. HEAD: Normal with no signs of trauma. EYES: PERRLA, EOMI, sclera anicteric, conjunctiva clear. ENT: Ears normal, nares patent, oropharynx clear without exudates. Moist mucous membranes. NECK: Normal range of motion, supple without lymphadenopathy, JVD, or masses. LUNGS: Breath sounds equal, clear to auscultation bilaterally. No wheezes, and no crackles. HEART:Regular rate and rhythm, normal S1 and S2 without murmur, rub or gallop. ABDOMEN: Soft, nontender, normoactive bowel sounds. No guarding, no rebound. EXTREMITIES: Normal range of motion, no edema. No clubbing or cyanosis. No erythema, or tenderness. NEUROLOGICAL: Cranial nerves II through XII grossly intact. Normal speech. No focal neurological deficits. MUSCULOSKELETAL: Back non-tender to palpation, no CVA tenderness SKIN: Warm, Dry, normal turgor, no rashes or lesions noted. <Adelina Corrales - Last Filed: 09/25/16 15:21> Medical Decision Making - Medical Decision Making 09/25/16 13:50 A portion of this note was documented by scribe services under my direction. I have reviewed the details of the note, within reason, and agree with the documentation with the following case summary and management plan written by me. Nursing documentation reviewed and incorporated into medical decision making Sunil is a 61 yo M, well known to the ER He presented again via EMS intoxicated Pt is indeed intoxicated He doese NOT admit to drinking (although pt smells of alcohol) No head trauma since his last discharge from our facility He is arousable and is able to answer my questions No focal weakness Pt also tells me that he has chest pain He is unable to give me any details regarding this pain He gets frustrated when I ask him questions, stating "you are talking to fast" Pt relatively hypotensive When nurse attempted to get blood work, he refused all labs Pt repeatedly re assessed over his ER course Appropriate metabolism of alcohol Pt requested a sandwich, which was given 09/25/16 18:12 Upon re assessment, pt states he feels well He has a headache which he states has been present for the past 3 days (please note: pt imaged with head/facial/ cervical spine CT yesterday, no ICH) Still intoxicated, speaking with slurred speech Pt signed out to Dr Iniguez Pt can be discharged once ambulatory with steady gait 09/25/16 18:19 <Sadia Cornell - Last Filed: 09/26/16 12:48> *DC/Admit/Observation/Transfer - Attestations Scribe Attestion: 09/25/16 15:26 Documentation prepared by Adelina Corrales, acting as medical lab specialist for Sadia Cornell MD. <Adelina Corrales - Last Filed: 09/25/16 15:21> - Discharge Dispostion Admit: No <Sadia Cornell - Last Filed: 09/26/16 12:48> Diagnosis at time of Disposition: Alcohol dependence - Discharge Dispostion Disposition: ELOPED Condition at time of disposition: Stable - Patient Instructions Printed Discharge Instructions: DI for Alcohol Abuse Additional Instructions: Please return to the ER for any concerns or complaints Please go to detox, Mr. De Leon
[2016-09-25 13:59] VITALS: BP 92/61; PULSE 82; TEMP 98.3; BMI 35.9
[2016-09-25] MEDS ORDERED: ACETAMINOPHEN 325 MG TABLET (FP) PO ONE (18:09)
[2016-09-25] MEDS: SODIUM CHLORIDE 1,000 ML IV STA (18:46)
== END 2016-09-25 21:05 | disposition left against medical advice (07) ==
LOC: JER 13:01
DX: F10.220 Alcohol dependence with intoxication, uncomplicated (principal); C45.9 Mesothelioma, unspecified
CPT/HCPCS: 99283-25

== ENCOUNTER 2016-09-26 18:43 | Emergency (ER) | payer OTHER ==
[2016-09-26 18:57] VITALS: BP 130/61; PULSE 91; TEMP 98.3; BMI 31.5
--- NOTE | 2016-09-26 19:30 | PDOC ---
History of Present Illness - History of Present Illness Initial Comments: 09/26/16 19:56 The patient is an undomeciled 61 year old male with history significant for EtOH dependence, very well known to this ED, brought in by EMS for alcohol intoxication. Upon evaluation, the patient denies any physical complaint. He denies any trauma or injury. <Carolyn Cox - Last Filed: 09/26/16 20:02> <Nitish Hernandez - Last Filed: 09/27/16 01:49> <Lorri Kumar - Last Filed: 09/27/16 06:43> - General Chief Complaint: Alcohol intoxication Stated Complaint: E.T.O.H. Time Seen by Provider: 09/26/16 19:05 Past History <Carolyn Cox - Last Filed: 09/26/16 20:02> - Past Medical History Anemia: No Asthma: No Cancer: Yes (mesothelioma) Cardiac Disorders: No CVA: No COPD: No CHF: No Dementia: No Diabetes: No GI Disorders: No Disorders: No HTN: No Hypercholesterolemia: No Kidney Stones: No Liver Disease: No Psychiatric Problems: Yes (alcoholism) Suicide Attempt (Hx): No Seizures: No Thyroid Disease: No - Surgical History Abdominal Surgery: No Appendectomy: No Cardiac Surgery: No Cholecystectomy: No Lung Surgery: No Neurologic Surgery: No Orthopedic Surgery: No - Family Disease History Family Disease History: CA: Mother - Reproductive History Testicular Surgery: No - Immunization History TDAP Vaccination: Yes Immunization Up to Date: Yes - Psycho/Social/Smoking Cessation Hx Anxiety: No Suicidal Ideation: No Smoking Status: No Smoking History: Never smoked Have you smoked in the past 12 months: No Number of Cigarettes Smoked Daily: 0 Cigars Per Day: 0 Information on smoking cessation initiated: No 'Breaking Loose' booklet given: 08/23/16 Hx Alcohol Use: No Drug/Substance Use Hx: No Substance Use Type: Alcohol Hx Substance Use Treatment: Yes ([facility]) <Nitish Hernandez - Last Filed: 09/27/16 01:49> <Lorri Kumar - Last Filed: 09/27/16 06:43> - Past Medical History Allergies/Adverse Reactions: Allergies Allergy/AdvReac Type Severity Reaction Status Date / Time Fish Containing Products Allergy Verified 09/26/16 18:55 Home Medications: Ambulatory Orders NK [No Known Home Medication] 07/12/16 Review of Systems - Review of Systems Able to Perform ROS?: Yes Comments:: 09/26/16 19:57 GENERAL/CONSTITUTIONAL: No fever or chills. No weakness. HEAD, EYES, EARS, NOSE AND THROAT: No change in vision. No ear pain or discharge. No sore throat CARDIOVASCULAR: No chest pain or shortness of breath. RESPIRATORY: No cough, wheezing, or hemoptysis. GASTROINTESTINAL: No nausea, vomiting, diarrhea or constipation. GENITOURINARY: No dysuria, frequency, or change in urination. MUSCULOSKELETAL: No joint or muscle swelling or pain. No neck or back pain. SKIN: No rash NEUROLOGIC: No headache, vertigo, loss of consciousness, or change in strength/ sensation. ENDOCRINE: No increased thirst. No abnormal weight change. HEMATOLOGIC/LYMPHATIC: No anemia, easy bleeding, or history of blood clots. ALLERGIC/IMMUNOLOGIC: No hives or skin allergy. <Carolyn Cxo - Last Filed: 09/26/16 20:02> *Physical Exam - Vital Signs Last Vital Signs Temp Pulse Resp BP Pulse Ox 98.3 F 91 H 18 130/61 92 L 09/26/16 18:55 09/26/16 18:55 09/26/16 18:55 09/26/16 18:55 09/26/16 18:55 - Physical Exam Comments: 09/26/16 19:57 GENERAL: Awake, clinically intoxicated. Smells of EtOH. Unhygienic. HEAD: No signs of trauma EYES: PERRLA, EOMI, sclera anicteric, conjunctiva clear ENT: Auricles normal inspection, hearing grossly normal, nares patent, oropharynx clear without exudates. Moist mucosa NECK: Normal ROM, supple, no lymphadenopathy, JVD, or masses LUNGS: Breath sounds equal, clear to auscultation bilaterally. No wheezes, and no crackles HEART: Regular rate and rhythm, normal S1 and S2, no murmurs, rubs or gallops ABDOMEN: Soft, nontender, normoactive bowel sounds. No guarding, no rebound. No masses EXTREMITIES: Normal range of motion, no edema. No clubbing or cyanosis. No cords, erythema, or tenderness NEUROLOGICAL: Cranial nerves II through XII grossly intact. Normal speech, normal gait SKIN: Warm, Dry, normal turgor, no rashes or lesions noted. <Carolyn Cox - Last Filed: 09/26/16 20:02> - Vital Signs Last Vital Signs Temp Pulse Resp BP Pulse Ox 98.3 F 91 H 18 130/61 92 L 09/26/16 18:55 09/26/16 18:55 09/26/16 18:55 09/26/16 18:55 09/26/16 18:55 <Nitish Hernandez - Last Filed: 09/27/16 01:49> - Vital Signs Last Vital Signs Temp Pulse Resp BP Pulse Ox 98.3 F 91 H 18 130/61 92 L 09/26/16 18:55 09/26/16 18:55 09/26/16 18:55 09/26/16 18:55 09/26/16 18:55 <Lorri Kumar - Last Filed: 09/27/16 06:43> Medical Decision Making - Medical Decision Making 09/26/16 19:29 A portion of this note was documented by scribe services under my direction. I have reviewed the details of the note, within reason, and agree with the documentation with the following case summary and management plan written by me. Patient treated in the ED. Nursing notes are reviewed and incorporated into the medical decision-making. Vital signs reviewed. Peripheral IV access obtained by the nurse, laboratory studies are drawn and sent, reviewed and interpreted by myself. Vital Signs Temp Pulse Resp BP Pulse Ox 98.3 F 91 H 18 130/61 92 L 09/26/16 18:55 09/26/16 18:55 09/26/16 18:55 09/26/16 18:55 09/26/16 18:55 61-year-old male well-known to us brought in by EMS for alcohol intoxication. Patient admits to drinking alcohol but denies trauma. We'll allow the alcohol to metabolize and reassess. 09/27/16 01:50 Case signed out to Dr. Kumar for further management and disposition. <Nitish Hernandez - Last Filed: 09/27/16 01:49> - Medical Decision Making 09/27/16 06:42 Pt signedout to me. He is drinking alcohol as usual and comes to sleep in the ER. Pt got up and walked out once he was ready to go home. <Lorri Kumar - Last Filed: 09/27/16 06:43> *DC/Admit/Observation/Transfer - Attestations Scribe Attestion: 09/26/16 19:58 Documentation prepared by Carolyn Cox, acting as medical office technologist for Nitish Hernandez MD. <Carolyn Cox - Last Filed: 09/26/16 20:02> <Nitish Hernandez - Last Filed: 09/27/16 01:49> - Discharge Dispostion Admit: No <Lorri Kumar - Last Filed: 09/27/16 06:43> Diagnosis at time of Disposition: Alcohol abuse - Discharge Dispostion Disposition: HOME Condition at time of disposition: Stable
== END 2016-09-27 06:56 | disposition home or self-care (01) ==
LOC: JER 18:43
DX: F10.220 Alcohol dependence with intoxication, uncomplicated (principal); C45.9 Mesothelioma, unspecified
CPT/HCPCS: 99283-25

== ENCOUNTER → 2016-09-27 | Emergency (ER) | payer OTHER ==
[2016-09-27 21:07] VITALS: BP 139/70; PULSE 67; TEMP 97.3; BMI 31.5
--- NOTE | 2016-09-27 23:03 | PDOC ---
History of Present Illness - General History Source: Patient Exam Limitations: No Limitations - History of Present Illness Initial Comments: 09/28/16 04:22 The patient is an undomeciled 61 year old male with history significant for EtOH dependence, very well known to this ED, brought in by EMS for alcohol intoxication. Upon evaluation, the patient denies any physical complaint. He denies any trauma or injury. <Carolyn Cox - Last Filed: 09/28/16 04:23> <Lorri Kumar - Last Filed: 09/28/16 21:45> - General Chief Complaint: Back Pain Stated Complaint: BACK PAIN Time Seen by Provider: 09/27/16 21:25 Past History <Carolyn Cox - Last Filed: 09/28/16 04:23> - Past Medical History Anemia: No Asthma: No Cancer: Yes (mesothelioma) Cardiac Disorders: No CVA: No COPD: No CHF: No Dementia: No Diabetes: No GI Disorders: No Disorders: No HTN: No Hypercholesterolemia: No Kidney Stones: No Liver Disease: No Psychiatric Problems: Yes (alcoholism) Suicide Attempt (Hx): No Seizures: No Thyroid Disease: No - Surgical History Abdominal Surgery: No Appendectomy: No Cardiac Surgery: No Cholecystectomy: No Lung Surgery: No Neurologic Surgery: No Orthopedic Surgery: No - Family Disease History Family Disease History: CA: Mother - Reproductive History Testicular Surgery: No - Immunization History TDAP Vaccination: Yes Immunization Up to Date: Yes - Psycho/Social/Smoking Cessation Hx Anxiety: No Suicidal Ideation: No Smoking Status: No Smoking History: Never smoked Have you smoked in the past 12 months: No Number of Cigarettes Smoked Daily: 0 Cigars Per Day: 0 Information on smoking cessation initiated: No 'Breaking Loose' booklet given: 08/23/16 Hx Alcohol Use: No Drug/Substance Use Hx: No Substance Use Type: Alcohol Hx Substance Use Treatment: Yes ([facility]) <Lorri Kumar - Last Filed: 09/28/16 21:45> - Past Medical History Allergies/Adverse Reactions: Allergies Allergy/AdvReac Type Severity Reaction Status Date / Time Fish Containing Products Allergy Verified 09/27/16 21:05 Home Medications: Ambulatory Orders NK [No Known Home Medication] 07/12/16 Review of Systems - Review of Systems Able to Perform ROS?: Yes Comments:: 09/28/16 04:22 GENERAL/CONSTITUTIONAL: No fever or chills. No weakness. HEAD, EYES, EARS, NOSE AND THROAT: No change in vision. No ear pain or discharge. No sore throat CARDIOVASCULAR: No chest pain or shortness of breath. RESPIRATORY: No cough, wheezing, or hemoptysis. GASTROINTESTINAL: No nausea, vomiting, diarrhea or constipation. GENITOURINARY: No dysuria, frequency, or change in urination. MUSCULOSKELETAL: No joint or muscle swelling or pain. No neck or back pain. SKIN: No rash NEUROLOGIC: No headache, vertigo, loss of consciousness, or change in strength/ sensation. ENDOCRINE: No increased thirst. No abnormal weight change. HEMATOLOGIC/LYMPHATIC: No anemia, easy bleeding, or history of blood clots. ALLERGIC/IMMUNOLOGIC: No hives or skin allergy. <Carolyn Cox - Last Filed: 09/28/16 04:23> *Physical Exam - Vital Signs Last Vital Signs Temp Pulse Resp BP Pulse Ox 97.3 F L 67 18 139/70 96 09/27/16 21:05 09/27/16 21:05 09/27/16 21:05 09/27/16 21:05 09/27/16 21:05 - Physical Exam Comments: 09/28/16 04:23 GENERAL: Awake, clinically intoxicated. Smells of EtOH. Unhygienic. HEAD: No signs of trauma EYES: PERRLA, EOMI, sclera anicteric, conjunctiva clear ENT: Auricles normal inspection, hearing grossly normal, nares patent, oropharynx clear without exudates. Moist mucosa NECK: Normal ROM, supple, no lymphadenopathy, JVD, or masses LUNGS: Breath sounds equal, clear to auscultation bilaterally. No wheezes, and no crackles HEART: Regular rate and rhythm, normal S1 and S2, no murmurs, rubs or gallops ABDOMEN: Soft, nontender, normoactive bowel sounds. No guarding, no rebound. No masses EXTREMITIES: Normal range of motion, no edema. No clubbing or cyanosis. No cords, erythema, or tenderness NEUROLOGICAL: Cranial nerves II through XII grossly intact. Normal speech, normal gait SKIN: Warm, Dry, normal turgor, no rashes or lesions noted. <Carolyn Cox - Last Filed: 09/28/16 04:23> - Vital Signs Last Vital Signs Temp Pulse Resp BP Pulse Ox 97.3 F L 67 18 139/70 95 09/27/16 21:05 09/27/16 21:05 09/27/16 21:05 09/27/16 21:05 09/27/16 21:05 <Lorri Kumar - Last Filed: 09/28/16 21:45> Medical Decision Making - Medical Decision Making 09/28/16 21:44 pt woke up and walked out. he's sober and ready to go. stable all night. <Lorri Kumar - Last Filed: 09/28/16 21:45> *DC/Admit/Observation/Transfer - Attestations Scribe Attestion: Documentation prepared by Carolyn Cox, acting as associate medical director for Lorri Kumar MD. 09/28/16 04:23 <Carolyn Cox - Last Filed: 09/28/16 04:23> - Discharge Dispostion Admit: No <Lorri Kumar - Last Filed: 09/28/16 21:45> Diagnosis at time of Disposition: Alcohol abuse - Discharge Dispostion Condition at time of disposition: Stable - Patient Instructions Printed Discharge Instructions: DI for Alcoholic Gastritis
== END | disposition left against medical advice (07) ==
LOC: JER 21:00
DX: F10.120 Alcohol abuse with intoxication, uncomplicated (principal); C45.9 Mesothelioma, unspecified
CPT/HCPCS: 99282-25

== ENCOUNTER 2016-09-28 19:37 | Emergency (ER) | payer OTHER ==
[2016-09-28 19:50] VITALS: BP 105/48; PULSE 74; TEMP 97.8; BMI 35.9
--- NOTE | 2016-09-28 22:21 | PDOC ---
History of Present Illness - General History Source: Patient Exam Limitations: No Limitations - History of Present Illness Initial Comments: 09/28/16 22:16 Patient is a 61 year old male undomiciled, etoh abuse with mutiple visits to the ED for intox and related injuries BIBA for alcohol intoxication. Patient has no complaints, denies any injury/fall. ALL: NKDA GENERAL/CONSTITUTIONAL: [No fever or chills. No weakness. No weight change) HEAD, EYES, EARS, NOSE AND THROAT: [No change in vision. No ear pain or discharge. No sore throat.] CARDIOVASCULAR: [No chest pain or shortness of breath.] RESPIRATORY: [No cough, wheezing, or hemoptysis.] GASTROINTESTINAL: [No nausea, vomiting, diarrhea or constipation. No rectal bleeding.] GENITOURINARY: [No dysuria, frequency, or change in urination.] MUSCULOSKELETAL: [No joint or muscle swelling or pain. No neck or back pain.] SKIN AND BREASTS: [No rash or easy bruising.] NEUROLOGIC: [No headache, vertigo, loss of consciousness, or loss of sensation.] PSYCHIATRIC: [No depression or anxiety.] ENDOCRINE: [No increased thirst. No abnormal weight change.] HEMATOLOGIC/LYMPHATIC: [No anemia, easy bleeding, or history of blood clots.] ALLERGIC/IMMUNOLOGIC: [No hives or skin allergy. No latex allergy.] GENERAL: [The patient is awake, alert, and fully oriented, in no acute distress , unkempt, AOB] HEAD: [Normal with no signs of trauma.] EYES: [Pupils equal, round and reactive to light, extraocular movements intact, sclera anicteric, conjunctiva clear.] ENT: [Ears normal, nares patent, oropharynx clear without exudates. Moist mucous membranes.] NECK: [Normal range of motion, supple without lymphadenopathy, JVD, or masses.] LUNGS: [Breath sounds equal, clear to auscultation bilaterally. No wheezes, and no crackles.] HEART: [Regular rate and rhythm, normal S1 and S2 without murmur, rub.] ABDOMEN: [Soft, nontender, normoactive bowel sounds. No guarding, no rebound. No masses.] EXTREMITIES: [Normal range of motion, (+) edema lower ext chronic. No clubbing or cyanosis. No cords, erythema, or tenderness.] NEUROLOGICAL: [Cranial nerves II through XII grossly intact. Normal speech, normal gait.] PSYCH: [Normal mood, normal affect.] SKIN: [Warm, Dry, normal turgor, no rashes or lesions noted.] <Ashutosh Patel - Last Filed: 09/29/16 05:38> <Lorri Kumar - Last Filed: 09/29/16 06:33> - General Chief Complaint: Alcohol intoxication Stated Complaint: INTOX Time Seen by Provider: 09/28/16 19:43 Past History - Past Medical History Anemia: No Asthma: No Cancer: Yes (mesothelioma) Cardiac Disorders: No CVA: No COPD: No CHF: No Dementia: No Diabetes: No GI Disorders: No Disorders: No HTN: No Hypercholesterolemia: No Kidney Stones: No Liver Disease: No Psychiatric Problems: Yes (alcoholism) Suicide Attempt (Hx): No Seizures: No Thyroid Disease: No - Surgical History Abdominal Surgery: No Appendectomy: No Cardiac Surgery: No Cholecystectomy: No Lung Surgery: No Neurologic Surgery: No Orthopedic Surgery: No - Family Disease History Family Disease History: CA: Mother - Reproductive History Testicular Surgery: No - Immunization History TDAP Vaccination: Yes Immunization Up to Date: Yes - Psycho/Social/Smoking Cessation Hx Anxiety: No Suicidal Ideation: No Smoking Status: No Smoking History: Current some day smoker Have you smoked in the past 12 months: No Number of Cigarettes Smoked Daily: 0 Cigars Per Day: 0 Information on smoking cessation initiated: No 'Breaking Loose' booklet given: 08/23/16 Hx Alcohol Use: Yes Drug/Substance Use Hx: No Substance Use Type: Alcohol Hx Substance Use Treatment: Yes ([facility]) <Ashutosh Patel - Last Filed: 09/29/16 05:38> <Lorri Kumar - Last Filed: 09/29/16 06:33> - Past Medical History Allergies/Adverse Reactions: Allergies Allergy/AdvReac Type Severity Reaction Status Date / Time Fish Containing Products Allergy Verified 09/27/16 21:05 Home Medications: Ambulatory Orders NK [No Known Home Medication] 07/12/16 *Physical Exam - Vital Signs Last Vital Signs Temp Pulse Resp BP Pulse Ox 97.8 F 74 16 105/48 95 09/28/16 19:48 09/28/16 19:48 09/28/16 19:48 09/28/16 19:48 09/28/16 19:48 <MoralesAshutosh Alonso - Last Filed: 09/29/16 05:38> - Vital Signs Last Vital Signs Temp Pulse Resp BP Pulse Ox 97.8 F 74 16 105/48 95 09/28/16 19:48 09/28/16 19:48 09/28/16 19:48 09/28/16 19:48 09/28/16 19:48 <Lorri Kumar - Last Filed: 09/29/16 06:33> Medical Decision Making - Medical Decision Making 09/28/16 22:19 Patient is a 61 year old male undomiciled, etoh abuse with mutiple visits to the ED for intox and related injuries BIBA for alcohol intoxication will allow sleep discharge when sober patient is a & o x 3 with steady gait I discussed the physical exam findings, ancillary test results and final diagnoses with the patient. I answered all of the patient's questions. The patient was satisfied with the care received and felt comfortable with the discharge plan and treatment plan. The Patient agrees to follow up with the primary care physician within 24-72 hours. <Ashutosh Patel - Last Filed: 09/29/16 05:38> *DC/Admit/Observation/Transfer <Ashutosh Patel - Last Filed: 09/29/16 05:38> <Lorri Kumar - Last Filed: 09/29/16 06:33> Diagnosis at time of Disposition: Alcohol intoxication - Discharge Dispostion Disposition: HOME Condition at time of disposition: Stable - Patient Instructions Printed Discharge Instructions: DI for Alcohol Abuse Additional Instructions: Your Discharge Instructions: You must call primary care physician within 24 hours to arrange follow-up. Return to the Emergency Department with any new, persistent or worsening symptoms, for fever, chills, SOB, dizziness or any other concerning changes that may occur. YOU NEED TO FOLLOW UP WITH [facility]
== END 2016-09-29 06:32 | disposition home or self-care (01) ==
LOC: JER 19:37
DX: F10.220 Alcohol dependence with intoxication, uncomplicated (principal); C45.9 Mesothelioma, unspecified; Z59.0 Homelessness
CPT/HCPCS: 99282-25

== ENCOUNTER → 2016-10-01 | Emergency (ER) | payer OTHER ==
[2016-10-01 16:37] VITALS: TEMP 97.2; BMI 35.9
--- NOTE | 2016-10-01 16:43 | PDOC ---
History of Present Illness - General History Source: Patient Exam Limitations: Intoxication - History of Present Illness Initial Comments: CHIEF COMPLAINT: 61 y/o afebrile male with PMH mesothelioma, COPD and ETOH abuse, well known to this ER for multiple visits for ETOH abuse, here for intoxication. HISTORY OF PRESENT ILLNESS: The patient is somnolent upon arrival and is denying all complaints of pain. Vital signs on arrival are within normal limits. REVIEW OF SYSTEMS: GENERAL/CONSTITUTIONAL: No fever/chills. No weakness. No weight change. HEAD, EYES, EARS, NOSE AND THROAT: No change in vision. No ear pain or discharge. No sore throat. CARDIOVASCULAR: No chest pain or shortness of breath. RESPIRATORY: No cough, wheezing, or hemoptysis. GASTROINTESTINAL: No abd pain, nausea, vomiting, diarrhea. GENITOURINARY: No dysuria, frequency, or change in urination. MUSCULOSKELETAL: No joint or muscle swelling or pain. No neck or back pain. SKIN: No rash or easy bruising. NEUROLOGIC: No headache, vertigo, loss of consciousness, or loss of sensation. PHYSICAL EXAM: GENERAL: The patient is somnolent but arousable with ETOH on breath. He is fully oriented, in NAD or obvious discomfort. HEAD: Normal with no signs of trauma. ENT: Pupils equal, round and reactive to light, extraocular movements intact, sclera anicteric, conjunctiva clear. Neck supple. LUNGS: Clear to auscultation bilaterally. Normal excursion. No respiratory distress or use of accessory muscles. CV: RRR, S1/S2, no MRG. Cap refill < 2 sec. ABDOMEN: Soft, non-distended, non-tender even to deep palpation, no hepatomegaly or splenomegaly, no masses. EXTREMITIES: Normal range of motion, no edema. NEUROLOGICAL: Normal speech, normal gait. CN II-XII grossly intact. PSYCH: Normal mood, normal affect. SKIN: Warm, dry, normal turgor, no rashes or lesions noted. <Lalitha Bucio - Last Filed: 10/01/16 16:46> <Fabiana Woodard - Last Filed: 10/04/16 12:09> - General Chief Complaint: Alcohol intoxication Stated Complaint: Alcohol intoxication Time Seen by Provider: 10/01/16 16:30 Past History - Past Medical History Anemia: No Asthma: No Cancer: Yes (mesothelioma) Cardiac Disorders: No CVA: No COPD: No CHF: No Dementia: No Diabetes: No GI Disorders: No Disorders: No HTN: No Hypercholesterolemia: No Kidney Stones: No Liver Disease: No Psychiatric Problems: Yes (alcoholism) Suicide Attempt (Hx): No Seizures: No Thyroid Disease: No - Surgical History Abdominal Surgery: No Appendectomy: No Cardiac Surgery: No Cholecystectomy: No Lung Surgery: No Neurologic Surgery: No Orthopedic Surgery: No - Family Disease History Family Disease History: CA: Mother - Reproductive History Testicular Surgery: No - Immunization History TDAP Vaccination: Yes Immunization Up to Date: Yes - Psycho/Social/Smoking Cessation Hx Anxiety: No Suicidal Ideation: No Smoking Status: No Smoking History: Never smoked Have you smoked in the past 12 months: No Number of Cigarettes Smoked Daily: 0 Cigars Per Day: 0 Information on smoking cessation initiated: No 'Breaking Loose' booklet given: 08/23/16 Hx Alcohol Use: No Drug/Substance Use Hx: No Substance Use Type: Alcohol Hx Substance Use Treatment: Yes ([facility]) <Lalitha Bucio - Last Filed: 10/01/16 16:46> <Fabiana Woodard - Last Filed: 10/04/16 12:09> - Past Medical History Allergies/Adverse Reactions: Allergies Allergy/AdvReac Type Severity Reaction Status Date / Time Fish Containing Products Allergy Verified 10/03/16 15:10 Home Medications: Ambulatory Orders NK [No Known Home Medication] 07/12/16 *Physical Exam - Vital Signs Last Vital Signs Temp Pulse Resp BP Pulse Ox 97.2 F L 93 H 20 118/74 97 10/01/16 16:29 10/01/16 16:29 10/01/16 16:29 10/01/16 16:29 10/01/16 16:29 <Lalitha Bucio - Last Filed: 10/01/16 16:46> - Vital Signs Last Vital Signs Temp Pulse Resp BP Pulse Ox 97.2 F L 95 H 20 166/83 97 10/01/16 16:29 10/02/16 06:32 10/02/16 06:32 10/02/16 06:32 10/02/16 06:32 <Fabiana Woodard - Last Filed: 10/04/16 12:09> ED Treatment Course - Medications Given in the ED: ED Medications Discontinued Medications Generic Name Dose Route Start Last Admin Trade Name Francisco Javier PRN Reason Stop Dose Admin Chlordiazepoxide HCl 50 mg 10/02/16 05:25 10/02/16 05:52 Librium - PO 10/02/16 05:26 50 mg ONCE ONE Administration <Fabiana Woodard - Last Filed: 10/04/16 12:09> Medical Decision Making - Medical Decision Making A/P: 61 y/o male here for ETOH intoxication. I am signing this patient out to my colleague: MICHAEL Rehman In brief, this patient is being seen in the ED for a chief complaint of: alcohol intoxication I have completed the initial assessment interview note and have ordered: nothing I have reviewed the following results: none Pending results are: none Plan for disposition is as follows: Wait for patient to sober up then discharge <Lalitha Bucio - Last Filed: 10/01/16 16:46> *DC/Admit/Observation/Transfer <Lalitha Bucio - Last Filed: 10/01/16 16:46> - Attestations Physician Attestion: I reviewed the case with the mid-level practitioner and agree with the mid- level practitioner's assessment, diagnosis and disposition. <Fabiana Woodard - Last Filed: 10/04/16 12:09> Diagnosis at time of Disposition: Alcohol intoxication, Alcohol abuse, Alcohol dependence - Discharge Dispostion Disposition: HOME - Patient Instructions Printed Discharge Instructions: DI for Alcohol Abuse
--- NOTE | 2016-10-01 19:54 | PDOC ---
*Physical Exam - Vital Signs Last Vital Signs Temp Pulse Resp BP Pulse Ox 97.2 F L 93 H 20 118/74 97 10/01/16 16:29 10/01/16 16:29 10/01/16 16:29 10/01/16 16:29 10/01/16 16:29 - Physical Exam Comments: 10/01/16 19:53 Sign-out received from outgoing ER provider Rupinder. Pt interviewed and examined. Ancillary studies reviewed. *DC/Admit/Observation/Transfer Diagnosis at time of Disposition: Alcohol intoxication, Alcohol abuse, Alcohol dependence - Discharge Dispostion Disposition: HOME Condition at time of disposition: Stable Admit: No - Patient Instructions Printed Discharge Instructions: DI for Alcohol Abuse
[2016-10-02 06:34] VITALS: BP 166/83; PULSE 95
== END | disposition home or self-care (01) ==
LOC: JER 16:23
DX: F10.220 Alcohol dependence with intoxication, uncomplicated (principal)
CPT/HCPCS: 99281-25

== ENCOUNTER → 2016-10-02 | Emergency (ER) | payer OTHER ==
[2016-10-02 19:13] VITALS: BP 118/75; PULSE 80; TEMP 98; BMI 35.9
--- NOTE | 2016-10-02 21:43 | PDOC ---
History of Present Illness - General History Source: Old Records Exam Limitations: Intoxication - History of Present Illness Initial Comments: 10/02/16 21:45 The patient is a 61 year old male, well known to the ER, with a significant past medical history of mesothelioma and EtOH abuse who presents to the emergency department BIB for alcohol intoxication. Patient currently has no complaints as pt is asleep. There are no obvious injuries noted. <Julia Woodruff - Last Filed: 10/02/16 21:45> <Umer Colorado - Last Filed: 10/03/16 04:49> - General Chief Complaint: Alcohol intoxication Stated Complaint: ALCOHOL INTOXICATION Past History <Julia Woodruff - Last Filed: 10/02/16 21:45> - Past Medical History Anemia: No Asthma: No Cancer: Yes (mesothelioma) Cardiac Disorders: No CVA: No COPD: No CHF: No Dementia: No Diabetes: No GI Disorders: No Disorders: No HTN: No Hypercholesterolemia: No Kidney Stones: No Liver Disease: No Psychiatric Problems: Yes (alcoholism) Suicide Attempt (Hx): No Seizures: No Thyroid Disease: No - Surgical History Abdominal Surgery: No Appendectomy: No Cardiac Surgery: No Cholecystectomy: No Lung Surgery: No Neurologic Surgery: No Orthopedic Surgery: No - Family Disease History Family Disease History: CA: Mother - Reproductive History Testicular Surgery: No - Immunization History TDAP Vaccination: Yes Immunization Up to Date: Yes - Psycho/Social/Smoking Cessation Hx Anxiety: No Suicidal Ideation: No Smoking Status: No Smoking History: Current some day smoker Have you smoked in the past 12 months: No Number of Cigarettes Smoked Daily: 0 Cigars Per Day: 0 Information on smoking cessation initiated: No 'Breaking Loose' booklet given: 08/23/16 Hx Alcohol Use: Yes Drug/Substance Use Hx: No Substance Use Type: Alcohol Hx Substance Use Treatment: Yes ([facility]) <Umer [place] - Last Filed: 10/03/16 04:49> - Past Medical History Allergies/Adverse Reactions: Allergies Allergy/AdvReac Type Severity Reaction Status Date / Time Fish Containing Products Allergy Verified 09/27/16 21:05 Home Medications: Ambulatory Orders NK [No Known Home Medication] 07/12/16 Review of Systems - Review of Systems Able to Perform ROS?: No Comments:: 10/02/16 21:45 Unable to obtain due to intoxication and poor cooperation. <Toney Woodruffta - Last Filed: 10/02/16 21:45> *Physical Exam - Vital Signs Last Vital Signs Temp Pulse Resp BP Pulse Ox 98 F 80 18 118/75 95 10/02/16 19:11 10/02/16 19:11 10/02/16 19:11 10/02/16 19:11 10/02/16 19:11 - Physical Exam Comments: 10/02/16 21:45 GENERAL: +AOB. Pt is intoxicated and asleep, but arousable. In no acute distress. HEAD: No signs of trauma EYES: PERRLA, EOMI, sclera anicteric, conjunctiva clear ENT: Auricles normal inspection, hearing grossly normal, nares patent, oropharynx clear without exudates. Moist mucosa NECK: Normal ROM, supple, no lymphadenopathy, JVD, or masses LUNGS: Airway is patent. Breath sounds equal, clear to auscultation bilaterally. No wheezes, and no crackles. HEART: Regular rate and rhythm, normal S1 and S2, no murmurs, rubs or gallops ABDOMEN: Soft, nontender, normoactive bowel sounds. No guarding, no rebound. No masses EXTREMITIES: Normal range of motion, no edema. No clubbing or cyanosis. No cords, erythema, or tenderness NEUROLOGICAL: Pt is intoxicated and asleep. No focal neurological deficits. SKIN: Warm, Dry, normal turgor, no rashes or lesions noted. <ErvinleónMaico knowlesJulia - Last Filed: 10/02/16 21:45> - Vital Signs Last Vital Signs Temp Pulse Resp BP Pulse Ox 98 F 80 18 118/75 95 10/02/16 19:11 10/02/16 19:11 10/02/16 19:11 10/02/16 19:11 10/02/16 19:11 <Umer Colorado - Last Filed: 10/03/16 04:49> Medical Decision Making - Medical Decision Making 10/02/16 21:42 61yo m well known to this ED for chronic intoxication and daily ED visits. He has no current complaints and no objective evidence of trauma. He is not cooperating for evaluation/interview. He will be allowed to sober and then discharged when safe. 10/03/16 04:45 No evidence of intoxication. <Umer Colorado - Last Filed: 10/03/16 04:49> *DC/Admit/Observation/Transfer - Attestations Scribe Attestion: 10/02/16 21:46 Documentation prepared by Julia Woodruff, acting as medical technicians for Umer Colorado MD, MD <Julia Woodruff - Last Filed: 10/02/16 21:45> - Discharge Dispostion Admit: No Decision to Admit order Date/Time: 10/03/16 04:48 - Attestations Physician Attestion: 10/03/16 04:48 I, Dr. Umer [place] MD, attest that this document has been prepared under my direction and personally reviewed by me in its entirety. I further attest, that it accurately reflects all work, treatment, procedures and medical decision -making performed by me. <Umer Colorado - Last Filed: 10/03/16 04:49> Diagnosis at time of Disposition: Alcohol abuse - Discharge Dispostion Disposition: HOME Condition at time of disposition: Good - Patient Instructions Additional Instructions: Please follow up with your PMD within the next 24 hours. See you soon!
== END | disposition home or self-care (01) ==
LOC: JER 19:04
DX: F10.20 Alcohol dependence, uncomplicated (principal); C45.9 Mesothelioma, unspecified
CPT/HCPCS: 99281-25

== ENCOUNTER 2016-10-03 14:58 | Emergency (ER) | payer OTHER ==
[2016-10-03 15:17] VITALS: BMI 23.6
[2016-10-03 15:32] VITALS: PULSE 84; TEMP 97.7
--- NOTE | 2016-10-03 16:17 | PDOC ---
History of Present Illness - History of Present Illness Initial Comments: 10/03/16 16:31 Patient is a 61 year old male with significant medical hx of COPD, alcohol abuse , and mesothelioma who has been brought to the ED via EMS for public intoxication. Patient reports drinking a pint of liquor today. He is requesting a tray of food. Denies any trauma. <Adelina Corrales - Last Filed: 10/03/16 16:31> - General History Source: Patient Exam Limitations: No Limitations <Sadia Cornell - Last Filed: 10/03/16 18:02> - General Chief Complaint: Alcohol intoxication Stated Complaint: Alcohol intoxication Time Seen by Provider: 10/03/16 15:15 Past History <Adelina Corrales - Last Filed: 10/03/16 16:31> - Past Medical History Anemia: No Asthma: No Cancer: Yes (mesothelioma) Cardiac Disorders: No CVA: No COPD: No CHF: No Dementia: No Diabetes: No GI Disorders: No Disorders: No HTN: No Hypercholesterolemia: No Kidney Stones: No Liver Disease: No Psychiatric Problems: Yes (alcoholism) Suicide Attempt (Hx): No Seizures: No Thyroid Disease: No - Surgical History Abdominal Surgery: No Appendectomy: No Cardiac Surgery: No Cholecystectomy: No Lung Surgery: No Neurologic Surgery: No Orthopedic Surgery: No - Family Disease History Family Disease History: CA: Mother - Reproductive History Testicular Surgery: No - Immunization History TDAP Vaccination: Yes Immunization Up to Date: Yes - Psycho/Social/Smoking Cessation Hx Anxiety: No Suicidal Ideation: No Smoking Status: No Smoking History: Current some day smoker Have you smoked in the past 12 months: No Number of Cigarettes Smoked Daily: 2 Cigars Per Day: 0 Information on smoking cessation initiated: No 'Breaking Loose' booklet given: 08/23/16 Hx Alcohol Use: Yes Drug/Substance Use Hx: No Substance Use Type: Alcohol Hx Substance Use Treatment: Yes ([facility]) <Sadia Cornell - Last Filed: 10/03/16 18:02> - Past Medical History Allergies/Adverse Reactions: Allergies Allergy/AdvReac Type Severity Reaction Status Date / Time Fish Containing Products Allergy Verified 10/03/16 15:10 Home Medications: Ambulatory Orders NK [No Known Home Medication] 07/12/16 Review of Systems - Review of Systems Comments:: 10/03/16 16:35 GENERAL/CONSTITUTIONAL: Yes: intoxication. No: fever, chills, weakness, loss of appetite. HEAD, EYES, EARS, NOSE AND THROAT: No: change in vision, ear pain, discharge, sore throat, throat swelling. CARDIOVASCULAR: No: chest pain, lightheadedness, palpitations, syncope RESPIRATORY: No: cough, shortness of breath, wheezing, hemoptysis, stridor. GASTROINTESTINAL: No: nausea, vomiting, abdominal cramping, diarrhea, rectal bleeding, constipation. GENITOURINARY: No: dysuria, hematuria, frequency, urgency, flank pain. MUSCULOSKELET AL: No: back pain, neck pain, joint pain, muscle swelling or pain SKIN AND BREASTS: No: lesions, pallor, rash or easy bruising. NEUROLOGIC: No: headache, vertigo, paresthesias, weakness ENDOCRINE: No: unexplained weight gain or loss HEMATOLOGIC/LYMPHATIC: No: anemia, easy bleeding, swelling nodes <Antoni,Adelina - Last Filed: 10/03/16 16:31> *Physical Exam - Vital Signs Last Vital Signs Temp Pulse Resp BP Pulse Ox 97.7 F 84 18 112/64 96 10/03/16 15:10 10/03/16 15:10 10/03/16 15:10 10/03/16 15:10 10/03/16 15:10 - Physical Exam Comments: 10/03/16 16:35 GENERAL: Malodorous, awake, alert. Speaking in clear sentences. Intoxicated. Poor hygiene. The patient is in no acute distress. HEAD: Normal with no signs of trauma. EYES: PERRLA, EOMI, sclera anicteric, conjunctiva clear. ENT: Ears normal, nares patent, oropharynx clear without exudates. Moist mucous membranes. NECK: Normal range of motion, supple without lymphadenopathy, JVD, or masses. LUNGS: Breath sounds equal, clear to auscultation bilaterally. No wheezes, and no crackles. HEART:Regular rate and rhythm, normal S1 and S2 without murmur, rub or gallop. ABDOMEN: Soft, nontender, normoactive bowel sounds. No guarding, no rebound. EXTREMITIES: Normal range of motion, no edema. No clubbing or cyanosis. No erythema, or tenderness. NEUROLOGICAL: Moving all extremities. Cranial nerves II through XII grossly intact. Normal speech. No focal neurological deficits. MUSCULOSKELETAL: Back non-tender to palpation, no CVA tenderness SKIN: Warm, Dry, normal turgor, no rashes or lesions noted. <Adelina Corrales - Last Filed: 10/03/16 16:31> - Vital Signs Last Vital Signs Temp Pulse Resp BP Pulse Ox 97.7 F 84 18 112/64 96 10/03/16 15:10 10/03/16 15:10 10/03/16 15:10 10/03/16 15:10 10/03/16 15:10 <Sadia Cornell - Last Filed: 10/03/16 18:02> Medical Decision Making - Medical Decision Making 10/03/16 16:12 A portion of this note was documented by scribe services under my direction. I have reviewed the details of the note, within reason, and agree with the documentation with the following case summary and management plan written by me. Nursing documentation reviewed and incorporated into medical decision making 10/03/16 16:19 Sunil is a 61 yo M, well known to the ER He presented again via EMS due to intoxicated He admits to drinking 1 pint today No head trauma since his last discharge from our facility He is arousable and is able to answer my questions No focal weakness Pt repeatedly re assessed over his ER course Appropriate metabolism of alcohol Pt requested a sandwich, which was given 10/03/16 18:12 Upon re assessment, pt states he feels well Still intoxicated, speaking with slurred speech Pt signed out to Dr Kumar Pt can be discharged once ambulatory with steady gait 10/03/16 17:57 <Sadia Cornell - Last Filed: 10/03/16 18:02> *DC/Admit/Observation/Transfer - Attestations Scribe Attestion: 10/03/16 16:36 Documentation prepared by Adelina Corrales, acting as associate medical director for Sadia Cornell MD. <Adelina Corrales - Last Filed: 10/03/16 16:31> - Discharge Dispostion Admit: No <Sadia Cornell - Last Filed: 10/03/16 18:02> Diagnosis at time of Disposition: Alcohol abuse - Discharge Dispostion Condition at time of disposition: Stable - Patient Instructions Printed Discharge Instructions: DI for Alcohol Abuse Additional Instructions: Please Sunil Moises, got to detox to help you stop drinking
[2016-10-04] MEDS ORDERED: chlordiazePOXIDE HCL 25 MG CAPSULE PO ONE (01:42)
[2016-10-04] MEDS ORDERED: chlordiazePOXIDE HCL 25 MG CAPSULE ONE (02:13)
[2016-10-04] MEDS ORDERED: MAGNESIUM SULF 50% (8.12 MEQ/2 ML-1 GM VIAL) IVPB ONE (04:19)
[2016-10-04] MEDS ORDERED: MAGNESIUM SULF 50% (8.12 MEQ/2 ML-1 GM VIAL) ONE (04:27)
[2016-10-04 05:05] LABS: EOSINOPHIL 4.1 % (0-4.5); MCH 30.5 pg (25.7-33.7); MCHC 33.4 g/dl (32.0-35.9); MEAN CELL VOLUME 91.5 fl (80-96); MEAN PLT VOLUME 7.5 fl (7.5-11.1); NEUTROPHILS 66.9 % (42.8-82.8); PLATELET COUNT 248 K/MM3 (134-434); RDW 17.6 % (11.9-15.9); WHITE BLOOD COUNT 5.6 K/mm3 (4.0-10.0)
[2016-10-04 05:29] LABS: ALBUMIN 3.2 g/dl (3.4-5.0); ALK PHOS 112 U/L (45-117); ANION GAP 9 (8-16); BILIRUBIN,TOTAL 0.8 mg/dL (0.2-1.0); CALCIUM 8.3 mg/dL (8.5-10.1); CO2 31 mmol/L (21-32); COCKROFT - GAULT 136.86; CREATININE 0.6 mg/dL (0.7-1.3); GLUCOSE,RANDOM 83 mg/dL (74-106); SGOT/AST 52 U/L (15-37); SGPT/ALT 28 U/L (12-78); TOT PROT 6.2 g/dl (6.4-8.2)
[2016-10-04] MEDS ORDERED: POTASSIUM CHLORIDE TABS 20 MEQ TABLET.ER (FP) PO ONE ×2 (06:39→06:43)
[2016-10-04 06:48] VITALS: BP 114/70
--- NOTE | 2016-10-04 09:53 | EKG ---
Test Reason : Blood Pressure : / mmHG Vent. Rate : 094 BPM Atrial Rate : 094 BPM P-R Int : 146 ms QRS Dur : 092 ms QT Int : 380 ms P-R-T Axes : 041 -31 022 degrees QTc Int : 475 ms NORMAL SINUS RHYTHM LEFT AXIS DEVIATION NONSPECIFIC ST ABNORMALITY ABNORMAL ECG WHEN COMPARED WITH ECG OF 23-AUG-2016 17:34, NO SIGNIFICANT CHANGE WAS FOUND Confirmed by ARY VENEGAS MD ([id number]) on 10/04/2016 9:53:28 AM Referred By: Confirmed By:RAY VENEGAS MD
== END 2016-10-04 06:47 | disposition home or self-care (01) ==
LOC: JER 14:58
DX: F10.220 Alcohol dependence with intoxication, uncomplicated (principal); C45.9 Mesothelioma, unspecified
CPT/HCPCS: 36415; 80053; 85025; 93005; 93010; 99282-25

== ENCOUNTER → 2016-10-04 | Emergency (ER) | payer OTHER ==
[2016-10-04 14:48] VITALS: BP 112/75; PULSE 82; TEMP 97.5; BMI 33.0
--- NOTE | 2016-10-04 16:02 | PDOC ---
History of Present Illness - General History Source: Patient Exam Limitations: No Limitations - History of Present Illness Initial Comments: CHIEF COMPLAINT: 61 y/o afebrile male with PMH mesothelioma, COPD and ETOH abuse, well known to this ER for multiple visits for ETOH abuse, here for intoxication. HISTORY OF PRESENT ILLNESS: The patient is awake, and intoxicated upon arrival and is denying all complaints of pain. Vital signs on arrival are within normal limits. REVIEW OF SYSTEMS: GENERAL/CONSTITUTIONAL: No fever/chills. No weakness. No weight change. HEAD, EYES, EARS, NOSE AND THROAT: No change in vision. No ear pain or discharge. No sore throat. CARDIOVASCULAR: No chest pain or shortness of breath. RESPIRATORY: No cough, wheezing, or hemoptysis. GASTROINTESTINAL: No abd pain, nausea, vomiting, diarrhea. GENITOURINARY: No dysuria, frequency, or change in urination. MUSCULOSKELETAL: No joint or muscle swelling or pain. No neck or back pain. SKIN: No rash or easy bruising. NEUROLOGIC: No headache, vertigo, loss of consciousness, or loss of sensation. PHYSICAL EXAM: GENERAL: The patient is somnolent but arousable with ETOH on breath. He is fully oriented, in NAD or obvious discomfort. HEAD: Normal with no signs of trauma. ENT: Pupils equal, round and reactive to light, extraocular movements intact, sclera anicteric, conjunctiva clear. Neck supple. LUNGS: Clear to auscultation bilaterally. Normal excursion. No respiratory distress or use of accessory muscles. CV: RRR, S1/S2, no MRG. Cap refill < 2 sec. ABDOMEN: Soft, non-distended, non-tender even to deep palpation, no hepatomegaly or splenomegaly, no masses. EXTREMITIES: Normal range of motion, no edema. NEUROLOGICAL: Normal speech, normal gait. CN II-XII grossly intact. PSYCH: Normal mood, normal affect. SKIN: Warm, dry, normal turgor, no rashes or lesions noted. <Lalitha Bucio - Last Filed: 10/04/16 16:54> <Fabiana Woodard - Last Filed: 10/06/16 12:30> - General Chief Complaint: Alcohol intoxication Stated Complaint: ALCOHOL INTOXICATION Time Seen by Provider: 10/04/16 16:00 Past History - Past Medical History Anemia: No Asthma: No Cancer: Yes (mesothelioma) Cardiac Disorders: No CVA: No COPD: No CHF: No Dementia: No Diabetes: No GI Disorders: No Disorders: No HTN: No Hypercholesterolemia: No Kidney Stones: No Liver Disease: No Psychiatric Problems: Yes (alcoholism) Suicide Attempt (Hx): No Seizures: No Thyroid Disease: No - Surgical History Abdominal Surgery: No Appendectomy: No Cardiac Surgery: No Cholecystectomy: No Lung Surgery: No Neurologic Surgery: No Orthopedic Surgery: No - Family Disease History Family Disease History: CA: Mother - Reproductive History Testicular Surgery: No - Immunization History TDAP Vaccination: Yes Immunization Up to Date: Yes - Psycho/Social/Smoking Cessation Hx Anxiety: No Suicidal Ideation: No Smoking Status: No Smoking History: Never smoked Have you smoked in the past 12 months: No Number of Cigarettes Smoked Daily: 2 Cigars Per Day: 0 Information on smoking cessation initiated: No 'Breaking Loose' booklet given: 08/23/16 Hx Alcohol Use: No Drug/Substance Use Hx: No Substance Use Type: Alcohol Hx Substance Use Treatment: Yes ([facility]) <Lalitha Bucio - Last Filed: 10/04/16 16:54> <Fabiana Woodard - Last Filed: 10/06/16 12:30> - Past Medical History Allergies/Adverse Reactions: Allergies Allergy/AdvReac Type Severity Reaction Status Date / Time Fish Containing Products Allergy Verified 10/03/16 15:10 Home Medications: Ambulatory Orders NK [No Known Home Medication] 07/12/16 *Physical Exam - Vital Signs Last Vital Signs Temp Pulse Resp BP Pulse Ox 97.5 F L 82 20 112/75 97 10/04/16 14:44 10/04/16 14:44 10/04/16 14:44 10/04/16 14:44 10/04/16 14:44 <Lalitha Bucio - Last Filed: 10/04/16 16:54> - Vital Signs Last Vital Signs Temp Pulse Resp BP Pulse Ox 97.5 F L 82 20 112/75 97 10/04/16 14:44 10/04/16 14:44 10/04/16 14:44 10/04/16 14:44 10/04/16 14:44 <Fabiana Woodard - Last Filed: 10/06/16 12:30> Medical Decision Making - Medical Decision Making A/P: 61 y/o male well known to this ER for multiple visits for ETOH intoxication is here for intoxication. Will provide the patient with food. The patient is now walking around the ER talking with staff and asking to be discharged. Will discharge to home. The patient is taking a cab home. Instructed him to return to the ER with any worsening or concerning symptoms. The patient verbalizes understanding of all instructions, has no further questions and is awaiting discharge. <Lalitha Bucio - Last Filed: 10/04/16 16:54> *DC/Admit/Observation/Transfer <Lalitha Bucio - Last Filed: 10/04/16 16:54> - Attestations Physician Attestion: I reviewed the case with the mid-level practitioner and agree with the mid- level practitioner's assessment, diagnosis and disposition. <Fabiana Woodard - Last Filed: 10/06/16 12:30> Diagnosis at time of Disposition: Alcohol intoxication, Alcohol dependence - Discharge Dispostion Disposition: HOME Condition at time of disposition: Improved - Patient Instructions Printed Discharge Instructions: DI for Alcohol Abuse Additional Instructions: Discharge Instructions: -Return to the ER with any worsening or concerning symptoms
== END | disposition home or self-care (01) ==
LOC: JER 14:32
DX: F10.220 Alcohol dependence with intoxication, uncomplicated (principal); C45.9 Mesothelioma, unspecified
CPT/HCPCS: 99282-25

== ENCOUNTER 2016-10-06 18:09 | Emergency (ER) | payer OTHER ==
--- NOTE | 2016-10-07 01:50 | PDOC ---
History of Present Illness - General History Source: Patient Exam Limitations: No Limitations - History of Present Illness Initial Comments: 10/07/16 02:02 Patient is a 61 year old male, well known to this ED, with a significant past medical history of EtOH abuse who presents to the ED with alcohol intoxication. This is the patients 18th visit during the month of September. Patient is complaining of difficulty breathing. <Margaret Glynn - Last Filed: 10/07/16 02:01> <Sue Casanova - Last Filed: 10/08/16 02:14> - General Chief Complaint: Alcohol intoxication Stated Complaint: INTOXICATED Time Seen by Provider: 10/06/16 18:34 Past History <Margaret Glynn - Last Filed: 10/07/16 02:01> - Past Medical History Anemia: No Asthma: No Cancer: Yes (mesothelioma) Cardiac Disorders: No CVA: No COPD: No CHF: No Dementia: No Diabetes: No GI Disorders: No Disorders: No HTN: No Hypercholesterolemia: No Kidney Stones: No Liver Disease: No Psychiatric Problems: Yes (alcoholism) Suicide Attempt (Hx): No Seizures: No Thyroid Disease: No - Surgical History Abdominal Surgery: No Appendectomy: No Cardiac Surgery: No Cholecystectomy: No Lung Surgery: No Neurologic Surgery: No Orthopedic Surgery: No - Family Disease History Family Disease History: CA: Mother - Reproductive History Testicular Surgery: No - Immunization History TDAP Vaccination: Yes Immunization Up to Date: Yes - Psycho/Social/Smoking Cessation Hx Anxiety: No Suicidal Ideation: No Smoking Status: No Smoking History: Never smoked Have you smoked in the past 12 months: No Number of Cigarettes Smoked Daily: 2 Cigars Per Day: 0 'Breaking Loose' booklet given: 08/23/16 Hx Alcohol Use: No Drug/Substance Use Hx: No Substance Use Type: Alcohol Hx Substance Use Treatment: Yes ([facility]) <Sue Casanova - Last Filed: 10/08/16 02:14> - Past Medical History Allergies/Adverse Reactions: Allergies Allergy/AdvReac Type Severity Reaction Status Date / Time Fish Containing Products Allergy Verified 10/03/16 15:10 Home Medications: Ambulatory Orders NK [No Known Home Medication] 07/12/16 Review of Systems - Review of Systems Able to Perform ROS?: No Comments:: 10/07/16 02:02 Unable to obtain due to patient's intoxicated status. <Margaret Glynn - Last Filed: 10/07/16 02:01> *Physical Exam - Vital Signs Last Vital Signs Temp Pulse Resp BP Pulse Ox 97.8 F 84 20 147/94 97 10/06/16 23:15 10/06/16 23:15 10/06/16 23:15 10/06/16 23:15 10/06/16 23:15 - Physical Exam Comments: 10/07/16 02:03 GENERAL: +Disheveled, reeks of urine. HEENT: Normocephalic, atraumatic. PERRLA, EOMI. No conjunctival pallor. Sclera are non- icteric. Moist mucous membranes. Oropharynx is clear. NECK: Supple. Full ROM. No JVD. Carotid pulses 2+ and symmetric, without bruits. No thyromegaly. No lymphadenopathy. CARDIOVASCULAR: Regular rate and rhythm. No murmurs, rubs, or gallops. Distal pulses are 2+ and symmetric. PULMONARY: +upper wheezes, no wheezing at lower bases. No evidence of respiratory distress.No rales or rhonchi. ABDOMINAL: Soft. Non-tender. Non-distended. No rebound or guarding. No organomegaly. Normoactive bowel sounds. MUSCULOSKELETAL Normal range of motion at all joints. No bony deformities or tenderness. No CVA tenderness. EXTREMITIES: No cyanosis. No clubbing. No edema. No calf tenderness. SKIN: Warm and dry. Normal capillary refill. No rashes. No jaundice. NEUROLOGICAL: Alert, awake, appropriate. Cranial nerves 2-12 intact. No deficits to light touch and temperature in face, upper extremities and lower extremities. No motor deficits in the in face, upper extremities and lower extremities. Normoreflexic in the upper and lower extremities. Normal speech. PSYCHIATRIC: Cooperative. Good eye contact. Appropriate mood and affect. <Margaret Glynn - Last Filed: 10/07/16 02:01> *DC/Admit/Observation/Transfer <Margaret Glynn - Last Filed: 10/07/16 02:01> <Sue Casanova - Last Filed: 10/08/16 02:14> Diagnosis at time of Disposition: Alcohol intoxication, Alcohol dependence - Discharge Dispostion Disposition: HOME Condition at time of disposition: Good - Patient Instructions Printed Discharge Instructions: DI for Alcohol Abuse Additional Instructions: Sunil- Please drink less alcohol and take better care of yourself. Best- Dr. Jacob Bertrand
[2016-10-07 01:56] VITALS: TEMP 97.8; BMI 35.9
[2016-10-07] MEDS ORDERED: ALBUTEROL SO4 2.5/IPRATROPIUM 0.5 INH SOL 3 ML VIAL.NEB. NEB STA (02:21)
--- NOTE | 2016-10-07 04:46 | PDOC ---
*Physical Exam - Vital Signs Last Vital Signs Temp Pulse Resp BP Pulse Ox 97.8 F 84 20 147/94 97 10/06/16 23:15 10/06/16 23:15 10/06/16 23:15 10/06/16 23:15 10/06/16 23:15 ED Treatment Course - Medications Given in the ED: ED Medications Discontinued Medications Generic Name Dose Route Start Last Admin Trade Name Freq PRN Reason Stop Dose Admin Albuterol/Ipratropium 1 amp 10/07/16 02:21 10/07/16 02:51 Duoneb - NEB 10/07/16 02:22 1 amp ONCE STA Administration Medical Decision Making - Medical Decision Making 10/07/16 04:46 Up and folding the sheets on his bed. Clinically Sober at present. Will DC Home. *DC/Admit/Observation/Transfer Diagnosis at time of Disposition: Alcohol intoxication, Alcohol dependence - Discharge Dispostion Disposition: HOME Condition at time of disposition: Good Admit: No - Patient Instructions Printed Discharge Instructions: DI for Alcohol Abuse Additional Instructions: Sunil- Please drink less alcohol and take better care of yourself. Abraham- Dr. Jacob Bertrand
[2016-10-07 06:26] VITALS: BP 141/78; PULSE 74
== END 2016-10-07 06:26 | disposition home or self-care (01) ==
LOC: JER 18:09
PROC: 3E0F7GC Introduction of Other Therapeutic Substance into Respiratory Tract, Via Natural or Artificial Opening (ICD-10-PCS; principal; 2016-10-06)
DX: F10.220 Alcohol dependence with intoxication, uncomplicated (principal); C45.9 Mesothelioma, unspecified
CPT/HCPCS: 94640; 99282-25

== ENCOUNTER 2016-10-07 16:26 | Emergency (ER) | payer OTHER ==
[2016-10-07 16:47] VITALS: BMI 27.2
--- NOTE | 2016-10-07 17:38 | PDOC ---
[id number] is a 61 year old male, well known to the ED, with a significant past medical history of ETOH abuse and mesothelioma, who presents to the emergency department via ems for alcohol intoxication today. The patient reports passing out today. He denies any acute pain or trauma. He denies pain at this time. He denies chest pain, shortness of breath, headache and dizziness. He denies fever, chills, nausea, vomit, diarrhea and constipation. He denies dysuria, frequency, urgency and hematuria. Allergies: NKDA <Ernestine Snyder - Last Filed: 10/07/16 18:14> <Fabiana Woodard - Last Filed: 10/13/16 12:33> - General Chief Complaint: Substance Abuse Stated Complaint: DETOX Time Seen by Provider: 10/07/16 16:39 Past History <Ernestine Snyder - Last Filed: 10/07/16 18:14> - Past Medical History Anemia: No Asthma: No Cancer: Yes (mesothelioma) Cardiac Disorders: No CVA: No COPD: No CHF: No Dementia: No Diabetes: No GI Disorders: No Disorders: No HTN: No Hypercholesterolemia: No Kidney Stones: No Liver Disease: No Psychiatric Problems: Yes (alcoholism) Suicide Attempt (Hx): No Seizures: No Thyroid Disease: No - Surgical History Abdominal Surgery: No Appendectomy: No Cardiac Surgery: No Cholecystectomy: No Lung Surgery: No Neurologic Surgery: No Orthopedic Surgery: No - Family Disease History Family Disease History: CA: Mother - Reproductive History Testicular Surgery: No - Immunization History TDAP Vaccination: Yes Immunization Up to Date: Yes - Psycho/Social/Smoking Cessation Hx Anxiety: No Suicidal Ideation: No Smoking Status: No Smoking History: Never smoked Have you smoked in the past 12 months: No Number of Cigarettes Smoked Daily: 2 Cigars Per Day: 0 Information on smoking cessation initiated: No 'Breaking Loose' booklet given: 08/23/16 Hx Alcohol Use: No Drug/Substance Use Hx: Yes (daily) Substance Use Type: Alcohol Hx Substance Use Treatment: Yes ([facility]) <Fabiana Woodard - Last Filed: 10/13/16 12:33> - Past Medical History Allergies/Adverse Reactions: Allergies Allergy/AdvReac Type Severity Reaction Status Date / Time Fish Containing Products Allergy Verified 10/07/16 16:47 Home Medications: Ambulatory Orders NK [No Known Home Medication] 10/12/16 Review of Systems - Review of Systems Able to Perform ROS?: Yes Comments:: 10/07/16 18:16 GENERAL/CONSTITUTIONAL: No fever or chills. No weakness. HEAD, EYES, EARS, NOSE AND THROAT: No change in vision. No ear pain or discharge. No sore throat. CARDIOVASCULAR: No chest pain or shortness of breath. RESPIRATORY: No cough, wheezing, or hemoptysis. GASTROINTESTINAL: No nausea, vomiting, diarrhea or constipation. GENITOURINARY: No dysuria, frequency, or change in urination. MUSCULOSKELETAL: No joint or muscle swelling or pain. No neck or back pain. SKIN: No rash NEUROLOGIC: No headache, vertigo, loss of consciousness, or change in strength/ sensation. ENDOCRINE: No increased thirst. No abnormal weight change. HEMATOLOGIC/LYMPHATIC: No anemia, easy bleeding, or history of blood clots. ALLERGIC/IMMUNOLOGIC: No hives or skin allergy. <Ernestine Snyder - Last Filed: 10/07/16 18:14> *Physical Exam - Vital Signs Last Vital Signs Temp Pulse Resp BP Pulse Ox 97.5 F L 87 18 99/56 92 L 10/07/16 16:30 10/07/16 16:30 10/07/16 16:30 10/07/16 16:30 10/07/16 16:30 - Physical Exam Comments: 10/07/16 18:16 GENERAL: (+) ETOH on breath. Awake, alert, and oriented, in no acute distress HEAD: No signs of acute trauma EYES: PERRLA, EOMI, sclera anicteric, conjunctiva clear ENT: Auricles normal inspection, hearing grossly normal, nares patent, oropharynx clear without exudates. Moist mucosa NECK: Normal ROM, supple, no lymphadenopathy, JVD, or masses LUNGS: Breath sounds equal, clear to auscultation bilaterally. No wheezes, and no crackles HEART: Regular rate and rhythm, normal S1 and S2, no murmurs, rubs or gallops ABDOMEN: Soft, nontender, normoactive bowel sounds. No guarding, no rebound. No masses EXTREMITIES: Normal range of motion, no edema. No clubbing or cyanosis. No cords, erythema, or tenderness NEUROLOGICAL: (+) gait unsteady. Cranial nerves II through XII grossly intact. Normal speech SKIN: (+) sunburn on scalp. Warm, Dry, normal turgor, no lesions noted. <Ernestine Snyder - Last Filed: 10/07/16 18:14> - Vital Signs Last Vital Signs Temp Pulse Resp BP Pulse Ox 97.5 F L 87 18 99/56 92 L 10/07/16 16:30 10/07/16 16:30 10/07/16 16:30 10/07/16 16:30 10/07/16 16:30 <Fabiana Woodard - Last Filed: 10/13/16 12:33> Medical Decision Making - Medical Decision Making 10/07/16 19:[address] Iniguez at shift change. Patient is resting comfortably. Currently he does not have a stable gait, not ready for discharge yet. Will cont to monitor to clinical sobriety. <Fabiana Woodard - Last Filed: 10/13/16 12:33> *DC/Admit/Observation/Transfer - Attestations Scribe Attestion: 10/07/16 18:18 Documentation prepared by Ernestine Snyder, acting as medical transcriber for Fabiana Woodard MD <Ernestine Snyder - Last Filed: 10/07/16 18:14> <Fabiana Woodard - Last Filed: 10/13/16 12:33> Diagnosis at time of Disposition: Alcohol abuse - Discharge Dispostion Disposition: HOME - Patient Instructions Printed Discharge Instructions: DI for Alcohol Abuse
[2016-10-07 19:02] VITALS: BP 107/65; PULSE 64; TEMP 97.7
[2016-10-08] MEDS ORDERED: chlordiazePOXIDE HCL 25 MG CAPSULE PO ONE (04:19)
[2016-10-08] MEDS ORDERED: ALBUTEROL SO4 2.5/IPRATROPIUM 0.5 INH SOL 3 ML VIAL.NEB. NEB STA (04:19)
[2016-10-08] MEDS ORDERED: chlordiazePOXIDE HCL 25 MG CAPSULE ONE (04:21)
--- NOTE | 2016-10-08 06:44 | PDOC ---
*Physical Exam - Vital Signs Last Vital Signs Temp Pulse Resp BP Pulse Ox 97.7 F 64 18 107/65 96 10/07/16 18:00 10/07/16 18:00 10/07/16 18:00 10/07/16 18:00 10/07/16 18:00 ED Treatment Course - Medications Given in the ED: ED Medications Discontinued Medications Generic Name Dose Route Start Last Admin Trade Name Freq PRN Reason Stop Dose Admin Albuterol/Ipratropium 1 amp 10/08/16 04:19 10/08/16 04:29 Duoneb - NEB 10/08/16 04:20 1 amp ONCE STA Administration Chlordiazepoxide HCl 50 mg 10/08/16 04:19 10/08/16 04:29 Librium - PO 10/08/16 04:20 50 mg ONCE ONE Administration *DC/Admit/Observation/Transfer Diagnosis at time of Disposition: Alcohol abuse - Discharge Dispostion Disposition: HOME Condition at time of disposition: Stable Admit: No - Patient Instructions Printed Discharge Instructions: DI for Alcohol Abuse
== END 2016-10-08 07:50 | disposition home or self-care (01) ==
LOC: JER 16:26
PROC: 3E0F7GC Introduction of Other Therapeutic Substance into Respiratory Tract, Via Natural or Artificial Opening (ICD-10-PCS; principal; 2016-10-07)
DX: F10.220 Alcohol dependence with intoxication, uncomplicated (principal); C45.9 Mesothelioma, unspecified; R26.81 Unsteadiness on feet; L55.9 Sunburn, unspecified
CPT/HCPCS: 94640; 99282-25

== ENCOUNTER 2016-10-09 18:46 | Emergency (ER) | payer OTHER ==
[2016-10-09 19:04] VITALS: TEMP 97.3; BMI 33.0
[2016-10-09] MEDS ORDERED: ALBUTEROL SO4 2.5/IPRATROPIUM 0.5 INH SOL 3 ML VIAL.NEB. NEB ONE (20:10)
--- NOTE | 2016-10-09 20:10 | PDOC ---
History of Present Illness - General Chief Complaint: Alcohol intoxication Stated Complaint: ALCOHOL INTOXICATION Time Seen by Provider: 10/09/16 20:09 History Source: Patient - History of Present Illness Initial Comments: 61 year old male well known to the ER reports drinking 1/2 pint of vodka. no visible trauma. moving all extremities, breath smelling of alcohol. PMHX as listed below Past History - Past Medical History Allergies/Adverse Reactions: Allergies Fish Containing Products Allergy (Mild, Verified 11/09/16 19:06) Home Medications: Ambulatory Orders NK [No Known Home Medication] 10/15/16 Psychosocial History: Yes: other (GERD, HTN, polysubstance abuse, alcohol abuse) - Immunization History Immunization Up to Date: Yes Tetanus Status: Unknown - Social History Smoking History: No Smoking Status: Never smoked Number of Cigarettes Per Day: 2 Cigars Per Day: 0 *Review of Systems - Review of Systems Able to Perform ROS?: Yes Constitutional: No: Symptoms Reported, See HPI, Chills, Diaphoresis, Fever, Loss of Appetite, Malaise, Night Sweats, Weakness, Weight Stable, Unintentional Wgt. Loss, Unexplained wgt Loss, Other Psychiatric: No: Anxiety, Depression, Frequent Crying, Stressors, Sleep Pattern Change, Emotional Problems, Mood Swings, Change in Appetite, Other Endocrine: No: Symptoms Reported, See HPI, Excessive Sweating, Flushing, Intolerance to Cold, Intolerance to Heat, Increased Hunger, Increased Thirst, Increased Urine, Unexplained Weight Gain, Unexplained Weight Loss, Change in Weight, Other *Physical Exam - Vital Signs Last Vital Signs Temp Pulse Resp BP Pulse Ox 97.3 F L 92 H 20 120/73 91 L 10/09/16 18:58 10/09/16 18:58 10/09/16 18:58 10/09/16 18:58 10/09/16 18:58 - Physical Exam General Appearance: Yes: Disheveled, Alcohol on Breath HEENT: positive: Other (normocephalic . no evidence of trauma) Neck: positive: Other (no cervical tenderness) Respiratory/Chest: positive: Lungs Clear, Normal Breath Sounds Cardiovascular: positive: Regular Rhythm, Regular Rate Gastrointestinal/Abdominal: positive: Normal Bowel Sounds, Soft Musculoskeletal: positive: Normal Inspection Extremity: positive: Normal Capillary Refill, Normal Inspection, Normal Range of Motion Integumentary: positive: Normal Color, Dry, Warm Neurologic: positive: Fully Oriented, Other (alcohol on breath) Plan - Progress Note Progress Note: A: alcohol abuse P: will await soberiety prior to discharge *DC/Admit/Observation/Transfer Diagnosis at time of Disposition: Alcohol abuse - Discharge Dispostion Disposition: HOME - Referrals Referrals: Garima Bridges MD [Primary Care Provider] - - Patient Instructions Printed Discharge Instructions: DI for Alcohol Abuse
--- NOTE | 2016-10-09 21:25 | PDOC ---
[id number] 120/73 91 L 10/09/16 18:58 10/09/16 18:58 10/09/16 18:58 10/09/16 18:58 10/09/16 18:58 ED Treatment Course - Medications Given in the ED: ED Medications Discontinued Medications Generic Name Dose Route Start Last Admin Trade Name Francisco Javier PRN Reason Stop Dose Admin Albuterol/Ipratropium 1 amp 10/09/16 20:10 10/09/16 20:15 Duoneb - NEB 10/09/16 20:11 1 amp ONCE ONE Administration Medical Decision Making - Medical Decision Making 10/09/16 21:24 agree with care Crosscutter Edilberto *DC/Admit/Observation/Transfer Diagnosis at time of Disposition: Alcohol abuse - Discharge Dispostion Disposition: HOME - Referrals Referrals: Garima Bridges MD [Primary Care Provider] - - Patient Instructions Printed Discharge Instructions: DI for Alcohol Abuse
[2016-10-10 06:09] VITALS: BP 126/70; PULSE 90
== END 2016-10-10 06:00 | disposition home or self-care (01) ==
LOC: JER 18:46
PROC: 3E0F7GC Introduction of Other Therapeutic Substance into Respiratory Tract, Via Natural or Artificial Opening (ICD-10-PCS; principal; 2016-10-09)
DX: F10.220 Alcohol dependence with intoxication, uncomplicated (principal); C45.9 Mesothelioma, unspecified
CPT/HCPCS: 99282-25

== ENCOUNTER 2016-10-12 15:56 | Emergency (ER) | payer OTHER ==
--- NOTE | 2016-10-12 16:02 | PDOC ---
History of Present Illness <Jacob Bertrand - Last Filed: 10/12/16 16:01> - General History Source: Patient Exam Limitations: No Limitations - History of Present Illness Initial Comments: 10/12/16 16:08 The patient is a 61 year old male, well known to this hospital, with a significant past medical history of alcohol abuse and mesothelioma, brought by ambulance to the Emergency Department with alcohol intoxication. The patient reports heavily drinking. The patient was seen here on 10/09, 10/07, and 10/04, etc. for the same complaint. The patient denies any acute trauma or pain. Patient denies nausea, vomiting, and diarrhea. Patient denies fever, cough, and chills. <April Jenkins - Last Filed: 10/12/16 16:11> <Lorri Kumar - Last Filed: 10/13/16 05:12> - General Chief Complaint: Alcohol intoxication Stated Complaint: ALCOHOL INTOXICATION Time Seen by Provider: 10/12/16 16:01 Past History - Past Medical History Anemia: No Asthma: No Cancer: Yes (mesothelioma) Cardiac Disorders: No CVA: No COPD: No CHF: No Dementia: No Diabetes: No GI Disorders: No Disorders: No HTN: No Hypercholesterolemia: No Kidney Stones: No Liver Disease: No Psychiatric Problems: Yes (alcoholism) Suicide Attempt (Hx): No Seizures: No Thyroid Disease: No - Surgical History Abdominal Surgery: No Appendectomy: No Cardiac Surgery: No Cholecystectomy: No Lung Surgery: No Neurologic Surgery: No Orthopedic Surgery: No - Family Disease History Family Disease History: CA: Mother - Reproductive History Testicular Surgery: No - Immunization History TDAP Vaccination: Yes Immunization Up to Date: Yes - Psycho/Social/Smoking Cessation Hx Anxiety: No Suicidal Ideation: No Smoking Status: No Smoking History: Never smoked Have you smoked in the past 12 months: No Number of Cigarettes Smoked Daily: 2 Cigars Per Day: 0 'Breaking Loose' booklet given: 08/23/16 Hx Alcohol Use: No Drug/Substance Use Hx: Yes (daily) Substance Use Type: Alcohol Hx Substance Use Treatment: Yes ([facility]) <Jacob Bertrand - Last Filed: 10/12/16 16:01> <April Jenkins - Last Filed: 10/12/16 16:11> <Lorri Kumar - Last Filed: 10/13/16 05:12> - Past Medical History Allergies/Adverse Reactions: Allergies Allergy/AdvReac Type Severity Reaction Status Date / Time Fish Containing Products Allergy Mild Verified 10/09/16 19:23 Home Medications: Ambulatory Orders NK [No Known Home Medication] 10/12/16 Review of Systems - Review of Systems Able to Perform ROS?: Yes Comments:: 10/12/16 16:08 GENERAL/CONSTITUTIONAL: + alcohol intoxication. No fever or chills. No weakness. HEAD, EYES, EARS, NOSE AND THROAT: No change in vision. No ear pain or discharge. No sore throat. CARDIOVASCULAR: No chest pain or shortness of breath. RESPIRATORY: No cough, wheezing, or hemoptysis. GASTROINTESTINAL: No nausea, vomiting, diarrhea or constipation. GENITOURINARY: No dysuria, frequency, or change in urination. MUSCULOSKELETAL: No joint or muscle swelling or pain. No neck or back pain. SKIN: No rash NEUROLOGIC: No headache, vertigo, loss of consciousness, or change in strength/ sensation. ENDOCRINE: No increased thirst. No abnormal weight change. HEMATOLOGIC/LYMPHATIC: No anemia, easy bleeding, or history of blood clots. ALLERGIC/IMMUNOLOGIC: No hives or skin allergy. <April Jenkins - Last Filed: 10/12/16 16:11> *Physical Exam - Physical Exam Comments: 10/12/16 16:08 GENERAL: Patient appears intoxication, alcohol on breath. Slurred speech. Awake , alert, in no acute distress HEAD: No signs of trauma EYES: PERRLA, EOMI, sclera anicteric, conjunctiva clear ENT: Auricles normal inspection, hearing grossly normal, nares patent, oropharynx clear without exudates. Moist mucosa NECK: Normal ROM, supple, no lymphadenopathy, JVD, or masses LUNGS: Breath sounds equal, clear to auscultation bilaterally. No wheezes, and no crackles HEART: Regular rate and rhythm, normal S1 and S2, no murmurs, rubs or gallops ABDOMEN: Soft, nontender, normoactive bowel sounds. No guarding, no rebound. No masses EXTREMITIES: Normal range of motion, no edema. No clubbing or cyanosis. No cords, erythema, or tenderness NEUROLOGICAL: Cranial nerves II through XII grossly intact. SKIN: Warm, Dry, normal turgor, no rashes or lesions noted. <April Jenkins - Last Filed: 10/12/16 16:11> - Vital Signs Last Vital Signs Temp Pulse Resp BP Pulse Ox 97.3 F L 87 18 105/70 95 10/12/16 16:17 10/12/16 16:17 10/12/16 16:17 10/12/16 16:17 10/12/16 16:17 <Lorri Kumar - Last Filed: 10/13/16 05:12> *DC/Admit/Observation/Transfer - Attestations Physician Attestion: 10/12/16 16:02 I, Dr. Jacob Bertrand, attest that this document has been prepared under my direction and personally reviewed by me in its entirety. I further attest, that it accurately reflects all work, treatment, procedures and medical decision -making performed by me. <Jacob Bertrand - Last Filed: 10/12/16 16:01> - Attestations Scribe Attestion: 10/12/16 16:11 Documentation prepared by April Jenkins, acting as medical affairs specialist for Jacob Bertrand DO. <April Jenkins - Last Filed: 10/12/16 16:11> <Lorri Kumar - Last Filed: 10/13/16 05:12> Diagnosis at time of Disposition: Alcohol abuse - Discharge Dispostion Disposition: HOME Condition at time of disposition: Stable - Referrals Referrals: Garima Bridges MD [Primary Care Provider] - - Patient Instructions Printed Discharge Instructions: DI for Alcohol Abuse
[2016-10-12 16:21] VITALS: BMI 28.7
[2016-10-13 06:31] VITALS: BP 130/86; PULSE 84; TEMP 97.8
== END 2016-10-13 06:32 | disposition home or self-care (01) ==
LOC: JER 15:56
DX: F10.220 Alcohol dependence with intoxication, uncomplicated (principal); C45.9 Mesothelioma, unspecified
CPT/HCPCS: 99282-25

== ENCOUNTER 2016-10-15 13:40 | Emergency (ER) | payer OTHER ==
[2016-10-15 13:48] VITALS: BP 121/71; PULSE 87; TEMP 98.6; BMI 25.8
--- NOTE | 2016-10-15 15:28 | PDOC ---
History of Present Illness - General Chief Complaint: Alcohol intoxication Stated Complaint: DETOX Time Seen by Provider: 10/15/16 13:45 History Source: Patient Exam Limitations: No Limitations - History of Present Illness Initial Comments: 61 yo M history of EtOH abuse, well-known to this hospital. Presents with alcohol intoxication. Denies any trauma. Patient is awake, alert, able to give history. No complaints at present. Past History - Past Medical History Allergies/Adverse Reactions: Allergies Allergy/AdvReac Type Severity Reaction Status Date / Time Fish Containing Products Allergy Mild Verified 10/15/16 13:48 Home Medications: Ambulatory Orders NK [No Known Home Medication] 10/15/16 Anemia: No Asthma: No Cancer: Yes (mesothelioma) Cardiac Disorders: No CVA: No COPD: No CHF: No Dementia: No Diabetes: No GI Disorders: No Disorders: No HTN: No Hypercholesterolemia: No Kidney Stones: No Liver Disease: No Psychiatric Problems: Yes (alcoholism) Suicide Attempt (Hx): No Seizures: No Thyroid Disease: No - Surgical History Abdominal Surgery: No Appendectomy: No Cardiac Surgery: No Cholecystectomy: No Lung Surgery: No Neurologic Surgery: No Orthopedic Surgery: No - Family Disease History Family Disease History: CA: Mother - Reproductive History Testicular Surgery: No - Immunization History TDAP Vaccination: Yes Immunization Up to Date: Yes - Psycho/Social/Smoking Cessation Hx Anxiety: No Suicidal Ideation: No Smoking Status: No Smoking History: Never smoked Have you smoked in the past 12 months: No Number of Cigarettes Smoked Daily: 2 Cigars Per Day: 0 Information on smoking cessation initiated: No 'Breaking Loose' booklet given: 08/23/16 Hx Alcohol Use: No Drug/Substance Use Hx: No Substance Use Type: Alcohol Hx Substance Use Treatment: Yes ([facility]) Review of Systems - Review of Systems Able to Perform ROS?: Yes Comments:: GENERAL/CONSTITUTIONAL: No fever or chills. No weakness. HEAD, EYES, EARS, NOSE AND THROAT: No change in vision. No ear pain or discharge. No sore throat. CARDIOVASCULAR: No chest pain or shortness of breath. RESPIRATORY: No cough, wheezing, or hemoptysis. GASTROINTESTINAL: No nausea, vomiting, diarrhea or constipation. GENITOURINARY: No dysuria, frequency, or change in urination. MUSCULOSKELETAL: No joint or muscle swelling or pain. No neck or back pain. SKIN: No rash NEUROLOGIC: No headache, vertigo, loss of consciousness, or change in strength/ sensation. ENDOCRINE: No increased thirst. No abnormal weight change. HEMATOLOGIC/LYMPHATIC: No anemia, easy bleeding, or history of blood clots. ALLERGIC/IMMUNOLOGIC: No hives or skin allergy. *Physical Exam - Vital Signs Last Vital Signs Temp Pulse Resp BP Pulse Ox 98.6 F 87 18 121/71 90 L 10/15/16 13:40 10/15/16 13:40 10/15/16 13:40 10/15/16 13:40 10/15/16 13:40 - Physical Exam Comments: GENERAL: Awake, alert, and fully oriented, in no acute distress. +AOB HEAD: No signs of trauma EYES: PERRLA, EOMI, sclera anicteric, conjunctiva clear ENT: Auricles normal inspection, hearing grossly normal, nares patent, oropharynx clear without exudates. Moist mucosa NECK: Normal ROM, supple, no lymphadenopathy, JVD, or masses LUNGS: Breath sounds equal, clear to auscultation bilaterally. No wheezes, and no crackles HEART: Regular rate and rhythm, normal S1 and S2, no murmurs, rubs or gallops ABDOMEN: Soft, nontender, normoactive bowel sounds. No guarding, no rebound. No masses EXTREMITIES: Normal range of motion, no edema. No clubbing or cyanosis. No cords, erythema, or tenderness NEUROLOGICAL: Cranial nerves II through XII grossly intact. Normal speech, normal gait SKIN: Warm, Dry, normal turgor, no rashes or lesions noted. Medical Decision Making - Medical Decision Making 10/15/16 15:38 Patient with stable gait, stable for DC home. *DC/Admit/Observation/Transfer Diagnosis at time of Disposition: Alcohol abuse, Alcohol intoxication - Discharge Dispostion Disposition: HOME Condition at time of disposition: Improved Admit: No - Patient Instructions Printed Discharge Instructions: DI for Alcohol Abuse
== END 2016-10-15 15:46 | disposition home or self-care (01) ==
LOC: JER 13:40
DX: F10.120 Alcohol abuse with intoxication, uncomplicated (principal); C45.9 Mesothelioma, unspecified
CPT/HCPCS: 99281-25

== ENCOUNTER 2016-10-15 19:27 | Emergency (ER) | payer OTHER ==
[2016-10-15 20:17] VITALS: BP 146/80; PULSE 90; TEMP 97.6; BMI 30.1
--- NOTE | 2016-10-15 20:29 | PDOC ---
History of Present Illness - General History Source: Patient, EMS Exam Limitations: Intoxication - History of Present Illness Initial Comments: 10/15/16 20:35 The patient is a 61 year old male, well known to the ER, with a significant past medical history of mesothelioma and EtOH abuse who presents to the emergency department BIBA for alcohol intoxication. Patient currently has no complaints as pt is asleep. There are no obvious injuries noted. <Julia Woodruff - Last Filed: 10/15/16 21:14> - General History Source: EMS <Altaf Iniguez - Last Filed: 10/16/16 06:28> - General Chief Complaint: Alcohol intoxication Stated Complaint: Alcohol intoxication Time Seen by Provider: 10/15/16 20:29 Past History <Julia Woodruff - Last Filed: 10/15/16 21:14> - Past Medical History Anemia: No Asthma: No Cancer: Yes (mesothelioma) Cardiac Disorders: No CVA: No COPD: No CHF: No Dementia: No Diabetes: No GI Disorders: No Disorders: No HTN: No Hypercholesterolemia: No Kidney Stones: No Liver Disease: No Psychiatric Problems: Yes (alcoholism) Suicide Attempt (Hx): No Seizures: No Thyroid Disease: No - Surgical History Abdominal Surgery: No Appendectomy: No Cardiac Surgery: No Cholecystectomy: No Lung Surgery: No Neurologic Surgery: No Orthopedic Surgery: No - Family Disease History Family Disease History: CA: Mother - Reproductive History Testicular Surgery: No - Immunization History TDAP Vaccination: Yes Immunization Up to Date: Yes - Psycho/Social/Smoking Cessation Hx Anxiety: No Suicidal Ideation: No Smoking Status: No Smoking History: Never smoked Have you smoked in the past 12 months: No Number of Cigarettes Smoked Daily: 2 Cigars Per Day: 0 'Breaking Loose' booklet given: 08/23/16 Hx Alcohol Use: Yes Drug/Substance Use Hx: No Substance Use Type: Alcohol Hx Substance Use Treatment: Yes ([facility]) <Altaf Iniguez - Last Filed: 10/16/16 06:28> - Past Medical History Allergies/Adverse Reactions: Allergies Allergy/AdvReac Type Severity Reaction Status Date / Time Fish Containing Products Allergy Mild Verified 10/15/16 13:48 Home Medications: Ambulatory Orders NK [No Known Home Medication] 10/15/16 Review of Systems - Review of Systems Able to Perform ROS?: Yes Comments:: 10/15/16 20:35 CONSTITUTIONAL: Absent: fever, no chills, no fatigue EYES: Absent: visual changes ENT: Absent: ear pain, no sore throat CARDIOVASCULAR: Absent: chest pain, no palpitations RESPIRATORY: Absent: cough, no SOB GI: Absent: abdominal pain, no nausea, no vomiting, no constipation, no diarrhea GENITOURINARY: Absent: dysuria, no frequency, no hematuria MUSCULOSKELETAL: Absent: back pain, no arthralgia, no myalgia SKIN: Absent: rash NEURO: Absent: headache <ErvinsaidaJulia - Last Filed: 10/15/16 21:14> *Physical Exam - Vital Signs Last Vital Signs Temp Pulse Resp BP Pulse Ox 97.6 F 90 18 146/80 94 L 10/15/16 19:30 10/15/16 19:30 10/15/16 19:30 10/15/16 19:30 10/15/16 19:30 - Physical Exam Comments: 10/15/16 20:35 GENERAL: Well-appearing, well-nourished. No apparent distress. +AOB HEENT: Normocephalic, atraumatic. PERRL, EOM intact. CARDIOVASCULAR: Normal S1, S2. Regular rate and rhythm. PULMONARY: Clear to auscultation bilaterally. ABDOMEN: Soft, non-distended, non-tender. EXTREMITIES: Normal ROM in all four extremities. No gross deformities. SKIN: Warm, dry. No rash NEUROLOGICAL: Pt is asleep. No gross focal neurological deficits. <KacyJulia - Last Filed: 10/15/16 21:14> - Vital Signs Last Vital Signs Temp Pulse Resp BP Pulse Ox 97.6 F 90 18 146/80 94 L 10/15/16 19:30 10/15/16 19:30 10/15/16 19:30 10/15/16 19:30 10/15/16 19:30 <Altaf Iniguez - Last Filed: 10/16/16 06:28> Medical Decision Making - Medical Decision Making 10/16/16 06:28 Dr. Iniguez: The scribe's documentation has been prepared under my direction and personally reviewed by me in its entirery. I confirm that the note above accurately reflects all work, treatment, procedures, and medical decision making performed by me. <Altaf Iniguez - Last Filed: 10/16/16 06:28> *DC/Admit/Observation/Transfer - Attestations Scribe Attestion: 10/15/16 20:35 Documentation prepared by Julia Woodruff, acting as medical underwriter for Altaf Iniguez MD/ <Julia Woodruff - Last Filed: 10/15/16 21:14> - Discharge Dispostion Admit: No <Altaf Iniguez - Last Filed: 10/16/16 06:28> Diagnosis at time of Disposition: Alcohol abuse, Alcohol intoxication - Discharge Dispostion Disposition: HOME Condition at time of disposition: Stable - Patient Instructions Printed Discharge Instructions: DI for Alcohol Abuse
== END 2016-10-16 06:31 | disposition home or self-care (01) ==
LOC: JER 19:27
DX: F10.220 Alcohol dependence with intoxication, uncomplicated (principal); C45.9 Mesothelioma, unspecified
CPT/HCPCS: 99282-25

== ENCOUNTER 2016-10-16 22:35 | Emergency (ER) | payer OTHER ==
[2016-10-16 22:54] VITALS: BP 114/75; PULSE 84; TEMP 97.6; BMI 30.1
--- NOTE | 2016-10-16 23:02 | PDOC ---
History of Present Illness - General History Source: Patient, EMS Exam Limitations: No Limitations, Intoxication - History of Present Illness Initial Comments: 10/16/16 23:02 The patient is a 61 year old male, well known to the ER, with a significant past medical history of mesothelioma and EtOH abuse who presents to the emergency department BIBA for alcohol intoxication. Patient currently has no complaints as pt is asleep. There are no obvious injuries noted. <Julia Woodruff - Last Filed: 10/16/16 23:02> - General History Source: EMS <Altaf Iniguez - Last Filed: 10/20/16 19:23> - General Chief Complaint: Alcohol intoxication Stated Complaint: SOB Time Seen by Provider: 10/16/16 22:47 Past History <Julia Woodruff - Last Filed: 10/16/16 23:02> - Past Medical History Anemia: No Asthma: No Cancer: Yes (mesothelioma) Cardiac Disorders: No CVA: No COPD: No CHF: No Dementia: No Diabetes: No GI Disorders: No Disorders: No HTN: No Hypercholesterolemia: No Kidney Stones: No Liver Disease: No Psychiatric Problems: Yes (alcoholism) Suicide Attempt (Hx): No Seizures: No Thyroid Disease: No - Surgical History Abdominal Surgery: No Appendectomy: No Cardiac Surgery: No Cholecystectomy: No Lung Surgery: No Neurologic Surgery: No Orthopedic Surgery: No - Family Disease History Family Disease History: CA: Mother - Reproductive History Testicular Surgery: No - Immunization History TDAP Vaccination: Yes Immunization Up to Date: Yes - Psycho/Social/Smoking Cessation Hx Anxiety: No Suicidal Ideation: No Smoking Status: No Smoking History: Never smoked Have you smoked in the past 12 months: No Number of Cigarettes Smoked Daily: 2 Cigars Per Day: 0 Information on smoking cessation initiated: No 'Breaking Loose' booklet given: 08/23/16 Hx Alcohol Use: Yes Drug/Substance Use Hx: No Substance Use Type: Alcohol Hx Substance Use Treatment: Yes ([facility]) <Altaf Iniguez - Last Filed: 10/20/16 19:23> - Past Medical History Allergies/Adverse Reactions: Allergies Allergy/AdvReac Type Severity Reaction Status Date / Time Fish Containing Products Allergy Mild Verified 10/16/16 22:54 Home Medications: Ambulatory Orders NK [No Known Home Medication] 10/15/16 Review of Systems - Review of Systems Able to Perform ROS?: Yes Comments:: 10/16/16 23:02 CONSTITUTIONAL: Absent: fever, no chills, no fatigue EYES: Absent: visual changes ENT: Absent: ear pain, no sore throat CARDIOVASCULAR: Absent: chest pain, no palpitations RESPIRATORY: Absent: cough, no SOB GI: Absent: abdominal pain, no nausea, no vomiting, no constipation, no diarrhea GENITOURINARY: Absent: dysuria, no frequency, no hematuria MUSCULOSKELETAL: Absent: back pain, no arthralgia, no myalgia SKIN: Absent: rash NEURO: Absent: headache <Julia Woodruff - Last Filed: 10/16/16 23:02> *Physical Exam - Vital Signs Last Vital Signs Temp Pulse Resp BP Pulse Ox 97.6 F 84 18 114/75 95 10/16/16 22:42 10/16/16 22:42 10/16/16 22:42 10/16/16 22:42 10/16/16 22:42 - Physical Exam Comments: 10/16/16 23:02 GENERAL: Well-appearing, well-nourished. No apparent distress. +AOB HEENT: Normocephalic, atraumatic. PERRL, EOM intact. CARDIOVASCULAR: Normal S1, S2. Regular rate and rhythm. PULMONARY: Clear to auscultation bilaterally. ABDOMEN: Soft, non-distended, non-tender. EXTREMITIES: Normal ROM in all four extremities. No gross deformities. SKIN: Warm, dry. No rash NEUROLOGICAL: Pt is asleep. No gross focal neurological deficits. <Julia Woodruff - Last Filed: 10/16/16 23:02> - Vital Signs Last Vital Signs Temp Pulse Resp BP Pulse Ox 97.6 F 84 18 114/75 95 10/16/16 22:42 10/16/16 22:42 10/16/16 22:42 10/16/16 22:42 10/16/16 22:42 <Altaf Iniguez - Last Filed: 10/20/16 19:23> Medical Decision Making - Medical Decision Making 10/20/16 19:22 Dr. Iniguez: The scribe's documentation has been prepared under my direction and personally reviewed by me in its entirery. I confirm that the note above accurately reflects all work, treatment, procedures, and medical decision making performed by me. <Altaf Iniguez - Last Filed: 10/20/16 19:23> *DC/Admit/Observation/Transfer - Attestations Scribe Attestion: 10/16/16 23:03 Documentation prepared by Julia Woodruff, acting as medical office receptionist for Altaf Iniguez MD/. <Julia Woodruff - Last Filed: 10/16/16 23:02> - Discharge Dispostion Admit: No <Altaf Iniguez - Last Filed: 10/20/16 19:23> Diagnosis at time of Disposition: Alcohol abuse, Alcohol intoxication - Discharge Dispostion Disposition: HOME Condition at time of disposition: Improved - Patient Instructions Printed Discharge Instructions: DI for Alcohol Abuse
--- NOTE | 2016-10-17 07:11 | PDOC ---
*Physical Exam - Vital Signs Last Vital Signs Temp Pulse Resp BP Pulse Ox 97.6 F 84 18 114/75 95 10/16/16 22:42 10/16/16 22:42 10/16/16 22:42 10/16/16 22:42 10/16/16 22:42 *DC/Admit/Observation/Transfer Diagnosis at time of Disposition: Alcohol abuse, Alcohol intoxication - Discharge Dispostion Disposition: HOME Condition at time of disposition: Improved Admit: No - Referrals - Patient Instructions Printed Discharge Instructions: DI for Alcohol Abuse - Post Discharge Activity
== END 2016-10-17 07:13 | disposition home or self-care (01) ==
LOC: JER 22:35
DX: F10.220 Alcohol dependence with intoxication, uncomplicated (principal); C45.9 Mesothelioma, unspecified
CPT/HCPCS: 99282-25

== ENCOUNTER 2016-10-17 19:52 | Emergency (ER) | payer OTHER ==
[2016-10-17 23:48] VITALS: BMI 27.8
--- NOTE | 2016-10-18 06:32 | PDOC ---
History of Present Illness - General History Source: Patient Exam Limitations: No Limitations, Intoxication - History of Present Illness Initial Comments: 10/18/16 06:32 The patient is a 61 year old male, well known to the ER, with a significant past medical history of mesothelioma and EtOH abuse who presents to the emergency department BIBA for alcohol intoxication. Patient currently has no complaints as pt is asleep. There are no obvious injuries noted. <Julia Woodruff - Last Filed: 10/18/16 06:32> <Lorri Kumar - Last Filed: 10/20/16 03:28> - General Chief Complaint: Alcohol intoxication Stated Complaint: Alcohol intoxication Time Seen by Provider: 10/17/16 23:35 Past History <Julia Woodruff - Last Filed: 10/18/16 06:32> - Past Medical History Anemia: No Asthma: No Cancer: Yes (mesothelioma) Cardiac Disorders: No CVA: No COPD: No CHF: No Dementia: No Diabetes: No GI Disorders: No Disorders: No HTN: No Hypercholesterolemia: No Kidney Stones: No Liver Disease: No Psychiatric Problems: Yes (alcoholism) Suicide Attempt (Hx): No Seizures: No Thyroid Disease: No - Surgical History Abdominal Surgery: No Appendectomy: No Cardiac Surgery: No Cholecystectomy: No Lung Surgery: No Neurologic Surgery: No Orthopedic Surgery: No - Family Disease History Family Disease History: CA: Mother - Reproductive History Testicular Surgery: No - Immunization History TDAP Vaccination: Yes Immunization Up to Date: Yes - Psycho/Social/Smoking Cessation Hx Anxiety: No Suicidal Ideation: No Smoking Status: No Smoking History: Unknown if ever smoked Have you smoked in the past 12 months: No Number of Cigarettes Smoked Daily: 2 Cigars Per Day: 0 Information on smoking cessation initiated: No 'Breaking Loose' booklet given: 08/23/16 Hx Alcohol Use: Yes Drug/Substance Use Hx: No Substance Use Type: Alcohol Hx Substance Use Treatment: Yes ([facility]) <Lorri Kumar - Last Filed: 10/20/16 03:28> - Past Medical History Allergies/Adverse Reactions: Allergies Allergy/AdvReac Type Severity Reaction Status Date / Time Fish Containing Products Allergy Mild Verified 10/17/16 23:46 Home Medications: Ambulatory Orders NK [No Known Home Medication] 10/15/16 Review of Systems - Review of Systems Able to Perform ROS?: Yes Comments:: 10/18/16 06:32 CONSTITUTIONAL: Absent: fever, no chills, no fatigue EYES: Absent: visual changes ENT: Absent: ear pain, no sore throat CARDIOVASCULAR: Absent: chest pain, no palpitations RESPIRATORY: Absent: cough, no SOB GI: Absent: abdominal pain, no nausea, no vomiting, no constipation, no diarrhea GENITOURINARY: Absent: dysuria, no frequency, no hematuria MUSCULOSKELETAL: Absent: back pain, no arthralgia, no myalgia SKIN: Absent: rash NEURO: Absent: headache <Julia Woodruff - Last Filed: 10/18/16 06:32> *Physical Exam - Vital Signs Last Vital Signs Temp Pulse Resp BP Pulse Ox 98.3 F 75 18 115/69 96 10/17/16 23:46 10/17/16 23:46 10/17/16 23:46 10/17/16 23:46 10/17/16 23:46 - Physical Exam Comments: 10/18/16 06:33 GENERAL: Well-appearing, well-nourished. No apparent distress. +AOB HEENT: Normocephalic, atraumatic. PERRL, EOM intact. CARDIOVASCULAR: Normal S1, S2. Regular rate and rhythm. PULMONARY: Clear to auscultation bilaterally. ABDOMEN: Soft, non-distended, non-tender. EXTREMITIES: Normal ROM in all four extremities. No gross deformities. SKIN: Warm, dry. No rash NEUROLOGICAL: Pt is asleep. No gross focal neurological deficits. <ErvinsaidaMaicoJulia - Last Filed: 10/18/16 06:32> - Vital Signs Last Vital Signs Temp Pulse Resp BP Pulse Ox 98.3 F 75 18 115/69 96 10/17/16 23:46 10/17/16 23:46 10/17/16 23:46 10/17/16 23:46 10/17/16 23:46 <Lorri Kumar - Last Filed: 10/20/16 03:28> Medical Decision Making - Medical Decision Making 10/18/16 06:50 Pt is drunk with alcohol. Sleeping all night. Still intoxicated. No complaints. He is wet having spent time in the rain. He will require director of social services to find him dry clothes. He will be signed out to the day ER staff. He may be discharged once he is sober. <Lorri Kumar - Last Filed: 10/20/16 03:28> *DC/Admit/Observation/Transfer - Attestations Scribe Attestion: 10/18/16 06:33 Documentation prepared by Julia Woodruff, acting as medical social consultant for Lorri Kumar MD/DO. <Julia Woodruff - Last Filed: 10/18/16 06:32> <Lorri Kumar - Last Filed: 10/20/16 03:28> Diagnosis at time of Disposition: Alcohol intoxication, Alcohol abuse - Discharge Dispostion Disposition: HOME Condition at time of disposition: Stable - Patient Instructions Printed Discharge Instructions: DI for Alcohol Abuse
[2016-10-18 06:51] VITALS: BP 117/70; PULSE 72; TEMP 98
--- NOTE | 2016-10-18 07:53 | PDOC ---
*Physical Exam - Vital Signs Last Vital Signs Temp Pulse Resp BP Pulse Ox 98 F 72 18 117/70 97 10/18/16 06:42 10/18/16 06:42 10/18/16 06:42 10/18/16 06:42 10/18/16 06:42 Progress Note - Progress Note Progress Note: The patient was endorsed to me by Dr. Navarro at 7 AM pending sobriety. The patient is awake alert and oriented 3, and ambulatory with a steady gait. He is clinically sober and is safe to discharge. The patient declines detox/ rehabilitation at this time. *DC/Admit/Observation/Transfer Diagnosis at time of Disposition: Alcohol intoxication, Alcohol abuse - Discharge Dispostion Disposition: HOME Condition at time of disposition: Stable Admit: No - Patient Instructions Printed Discharge Instructions: DI for Alcohol Abuse
== END 2016-10-18 07:50 | disposition home or self-care (01) ==
LOC: JER 19:52
DX: F10.220 Alcohol dependence with intoxication, uncomplicated (principal); C45.9 Mesothelioma, unspecified
CPT/HCPCS: 99282-25

== ENCOUNTER 2016-10-21 11:34 | Emergency (ER) | payer OTHER ==
[2016-10-21 12:11] VITALS: BP 128/63; PULSE 99; TEMP 98.2; BMI 30.7
--- NOTE | 2016-10-21 13:00 | PDOC ---
History of Present Illness - General Chief Complaint: Alcohol intoxication Stated Complaint: Alcohol intoxication Time Seen by Provider: 10/21/16 11:52 History Source: Patient Exam Limitations: No Limitations - History of Present Illness Initial Comments: 10/21/16 12:55 61-year-old male brought in for evaluation of alcohol intoxication. [place] for evaluation. He has no complaints presently and has history of EtOH abuse. Timing/Duration: unsure Severity: moderate Associated Symptoms: reports: denies symptoms Past History - Past Medical History Allergies/Adverse Reactions: Allergies Allergy/AdvReac Type Severity Reaction Status Date / Time Fish Containing Products Allergy Mild Verified 10/17/16 23:46 Home Medications: Ambulatory Orders NK [No Known Home Medication] 10/15/16 Anemia: No Asthma: No Cancer: Yes (mesothelioma) Cardiac Disorders: No CVA: No COPD: No CHF: No Dementia: No Diabetes: No GI Disorders: No Disorders: No HTN: No Hypercholesterolemia: No Kidney Stones: No Liver Disease: No Psychiatric Problems: Yes (alcoholism) Suicide Attempt (Hx): No Seizures: No Thyroid Disease: No - Surgical History Abdominal Surgery: No Appendectomy: No Cardiac Surgery: No Cholecystectomy: No Lung Surgery: No Neurologic Surgery: No Orthopedic Surgery: No - Family Disease History Family Disease History: CA: Mother - Reproductive History Testicular Surgery: No - Immunization History TDAP Vaccination: Yes Immunization Up to Date: Yes - Psycho/Social/Smoking Cessation Hx Anxiety: No Suicidal Ideation: No Smoking Status: No Smoking History: Unknown if ever smoked Have you smoked in the past 12 months: No Number of Cigarettes Smoked Daily: 2 Cigars Per Day: 0 'Breaking Loose' booklet given: 08/23/16 Hx Alcohol Use: Yes Drug/Substance Use Hx: No Substance Use Type: Alcohol Hx Substance Use Treatment: Yes ([facility]) Patient Lives Alone: Yes Lives with/in: homeless Review of Systems - Review of Systems Able to Perform ROS?: Yes Constitutional: No: Symptoms Reported HEENTM: No: Symptoms Reported Respiratory: No: Symptoms reported Cardiac (ROS): No: Symptoms Reported ABD/GI: No: Symptoms Reported Musculoskeletal: No: Symptoms Reported Integumentary: No: Symptoms Reported Neurological: No: Symptoms reported Endocrine: No: Symptoms Reported Hematologic/Lymphatic: No: Symptoms Reported *Physical Exam - Vital Signs Last Vital Signs Temp Pulse Resp BP Pulse Ox 98.2 F 99 H 20 128/63 93 L 10/21/16 12:04 10/21/16 12:04 10/21/16 12:04 10/21/16 12:04 10/21/16 12:04 - Physical Exam General Appearance: Yes: Nourished, Disheveled, Alcohol on Breath, Intoxicated ( moderately). No: Apparent Distress HEENT: positive: EOMI, DOUGLAS, Pharynx Normal (dry). negative: Pale Conjunctivae Neck: positive: Supple Respiratory/Chest: positive: Lungs Clear, Normal Breath Sounds. negative: Respiratory Distress, Accessory Muscle Use Cardiovascular: positive: Regular Rhythm, Regular Rate. negative: Murmur Gastrointestinal/Abdominal: positive: Soft. negative: Tenderness Integumentary: positive: Rash (scattered bite romo noted to abdomen and lower exremities.) Neurologic: positive: Normal Mood/Affect, Motor Strength 5/5 Medical Decision Making - Medical Decision Making 10/21/16 13:04 Patient here for public intoxication. Patient has no complaints presently. On exam patient was found to have multiple small pinhead sized bite romo to his body. Found to insects that replicates body lice. Patient placed in isolation and will discharge when appropriate with medication. 10/21/16 14:12 Able to obtain clothes in the lost and found of the hospital. Patient's toes was bagged in a plastic bag. Patient currently eating lunch and will have permethrin applied and then will be placed in shower. 10/21/16 17:49 Patient offered the premethrin to apply and refused stating he wants to go and does not want shower. Patient given new clothes and ols changes in plastic bag remain in a bag. Patient will sign the AMA form. *DC/Admit/Observation/Transfer Diagnosis at time of Disposition: Alcohol abuse, Pediculosis corporis - Discharge Dispostion Disposition: AGAINST MEDICAL ADVICE Condition at time of disposition: Unchanged/Unknown - Patient Instructions Printed Discharge Instructions: DI for Alcohol Abuse, DI for Head Lice Additional Instructions: You are signing out AGAINST MEDICAL ADVICE today and refused prescription for treatment of body lice. I recommend that you keep your bag closed sealed for 2 weeks otherwise wash in extreme hot water and dry and a hot dryer.
[2016-10-21] MEDS ORDERED: PERMETHRIN 5% TOPICAL CREAM 60 GM TUBE TP ONE (14:05)
== END 2016-10-21 18:02 | disposition left against medical advice (07) ==
LOC: JER 11:34
DX: F10.220 Alcohol dependence with intoxication, uncomplicated (principal); B85.1 Pediculosis due to Pediculus humanus corporis
CPT/HCPCS: 99281-25

== ENCOUNTER 2016-10-22 20:41 | Emergency (ER) | payer OTHER ==
--- NOTE | 2016-10-22 21:07 | PDOC ---
History of Present Illness - General History Source: Patient Exam Limitations: Intoxication - History of Present Illness Initial Comments: 10/22/16 21:08 The patient is a 61 year old male, well known to the ER, with a significant past medical history of mesothelioma and alcohol abuse, who presents to the ER with alcohol intoxication. Patient is currently somnolent and is not complaining of any pain. There are no obvious injuries noted. <Sofi Jama - Last Filed: 10/22/16 21:13> - General History Source: EMS <Altaf Iniguez - Last Filed: 10/22/16 22:29> - General Stated Complaint: INTOXICATION Time Seen by Provider: 10/22/16 21:03 Past History <Sofi Jama - Last Filed: 10/22/16 21:13> - Past Medical History Anemia: No Asthma: No Cancer: Yes (mesothelioma) Cardiac Disorders: No CVA: No COPD: No CHF: No Dementia: No Diabetes: No GI Disorders: No Disorders: No HTN: No Hypercholesterolemia: No Kidney Stones: No Liver Disease: No Psychiatric Problems: Yes (alcoholism) Suicide Attempt (Hx): No Seizures: No Thyroid Disease: No - Surgical History Abdominal Surgery: No Appendectomy: No Cardiac Surgery: No Cholecystectomy: No Lung Surgery: No Neurologic Surgery: No Orthopedic Surgery: No - Family Disease History Family Disease History: CA: Mother - Reproductive History Testicular Surgery: No - Immunization History TDAP Vaccination: Yes Immunization Up to Date: Yes - Psycho/Social/Smoking Cessation Hx Anxiety: No Suicidal Ideation: No Smoking Status: No Smoking History: Unknown if ever smoked Have you smoked in the past 12 months: No Number of Cigarettes Smoked Daily: 2 Cigars Per Day: 0 'Breaking Loose' booklet given: 08/23/16 Hx Alcohol Use: Yes Drug/Substance Use Hx: No Substance Use Type: Alcohol Hx Substance Use Treatment: Yes ([facility]) <Altaf Iniguez - Last Filed: 10/22/16 22:29> - Past Medical History Allergies/Adverse Reactions: Allergies Allergy/AdvReac Type Severity Reaction Status Date / Time Fish Containing Products Allergy Mild Verified 10/22/16 21:08 Home Medications: Ambulatory Orders NK [No Known Home Medication] 10/15/16 Review of Systems - Review of Systems Able to Perform ROS?: Yes Comments:: 10/22/16 21:09 CONSTITUTIONAL: Absent: fever, no chills, no fatigue EYES: Absent: visual changes ENT: Absent: ear pain, no sore throat CARDIOVASCULAR: Absent: chest pain, no palpitations RESPIRATORY: Absent: cough, no SOB GI: Absent: abdominal pain, no nausea, no vomiting, no constipation, no diarrhea GENITOURINARY: Absent: dysuria, no frequency, no hematuria MUSCULOSKELETAL: Absent: back pain, no arthralgia, no myalgia SKIN: Absent: rash NEURO: Absent: headache <Sofi Jama - Last Filed: 10/22/16 21:13> *Physical Exam - Physical Exam Comments: 10/22/16 21:10 GENERAL: Somnolent, well-nourished. No apparent distress. HEENT: Normocephalic, atraumatic. PERRL, EOM intact. CARDIOVASCULAR: Normal S1, S2. Regular rate and rhythm. PULMONARY: Clear to auscultation bilaterally. ABDOMEN: Soft, non-distended, non-tender. EXTREMITIES: Normal ROM in all four extremities. No gross deformities. SKIN: Warm, dry. No rash NEUROLOGICAL: No focal neurological deficits. <Sofi Jama - Last Filed: 10/22/16 21:13> Medical Decision Making - Medical Decision Making 10/22/16 22:26 Dr. Iniguez: The scribe's documentation has been prepared under my direction and personally reviewed by me in its entirery. I confirm that the note above accurately reflects all work, treatment, procedures, and medical decision making performed by me. patient with known history of body lice, refusing to get treated in the department. Pt offered cream and clean clothes. Offered privacy for treatment. Pt refused. Pt will be discharged <Altaf Iniguez - Last Filed: 10/22/16 22:29> *DC/Admit/Observation/Transfer - Attestations Scribe Attestion: 10/22/16 21:10 Documentation prepared by Sofi Jama, acting as medical chemist for Altaf Iniguez DO. <Sofi Jama - Last Filed: 10/22/16 21:13> - Discharge Dispostion Admit: No <Altaf Iniguez Last Filed: 10/22/16 22:29> Diagnosis at time of Disposition: Alcohol abuse, Body lice infestation - Discharge Dispostion Disposition: HOME Condition at time of disposition: Stable - Patient Instructions Printed Discharge Instructions: DI for Head Lice, DI for Alcohol Abuse
[2016-10-22 21:28] VITALS: BP 114/70; PULSE 90; TEMP 97.6; BMI 33.0
== END 2016-10-22 22:30 | disposition home or self-care (01) ==
LOC: JER 20:41
DX: F10.220 Alcohol dependence with intoxication, uncomplicated (principal); B85.1 Pediculosis due to Pediculus humanus corporis; C45.9 Mesothelioma, unspecified
CPT/HCPCS: 99281-25

== ENCOUNTER 2016-10-23 22:30 | Emergency (ER) | payer OTHER ==
--- NOTE | 2016-10-23 22:41 | PDOC ---
History of Present Illness <Jacob Bertrand - Last Filed: 10/24/16 00:58> - History of Present Illness Initial Comments: 10/24/16 00:49 Patient is a 61 year old male, well known to the ED, with significant medical hx of mesothelioma and alcohol abuse, who has been brought to the ED via EMS for public intoxication. Patient was noted with a recent diagnosis of scabies several days ago and he has since not applied his cream for treatment. Patient does not offer any complaints. <Adelina Corrales - Last Filed: 10/24/16 01:02> - General Stated Complaint: ALCOHOL INTOXICATION Time Seen by Provider: 10/23/16 22:40 Past History - Past Medical History Anemia: No Asthma: No Cancer: Yes (mesothelioma) Cardiac Disorders: No CVA: No COPD: No CHF: No Dementia: No Diabetes: No GI Disorders: No Disorders: No HTN: No Hypercholesterolemia: No Kidney Stones: No Liver Disease: No Psychiatric Problems: Yes (alcoholism) Suicide Attempt (Hx): No Seizures: No Thyroid Disease: No - Surgical History Abdominal Surgery: No Appendectomy: No Cardiac Surgery: No Cholecystectomy: No Lung Surgery: No Neurologic Surgery: No Orthopedic Surgery: No - Family Disease History Family Disease History: CA: Mother - Reproductive History Testicular Surgery: No - Immunization History TDAP Vaccination: Yes Immunization Up to Date: Yes - Psycho/Social/Smoking Cessation Hx Anxiety: No Suicidal Ideation: No Smoking Status: No Smoking History: Unknown if ever smoked Have you smoked in the past 12 months: No Number of Cigarettes Smoked Daily: 2 Cigars Per Day: 0 'Breaking Loose' booklet given: 08/23/16 Hx Alcohol Use: Yes Drug/Substance Use Hx: No Substance Use Type: Alcohol Hx Substance Use Treatment: Yes ([facility]) <Jacob Bertrand - Last Filed: 10/24/16 00:58> <Adelina Corrales - Last Filed: 10/24/16 01:02> - Past Medical History Allergies/Adverse Reactions: Allergies Allergy/AdvReac Type Severity Reaction Status Date / Time Fish Containing Products Allergy Mild Verified 10/22/16 21:08 Home Medications: Ambulatory Orders NK [No Known Home Medication] 10/15/16 Review of Systems - Review of Systems Comments:: 10/24/16 00:49 GENERAL/CONSTITUTIONAL: No fever or chills. No weakness. HEAD, EYES, EARS, NOSE AND THROAT: No change in vision. No ear pain or discharge. No sore throat. CARDIOVASCULAR: No chest pain or shortness of breath. RESPIRATORY: No cough, wheezing, or hemoptysis. GASTROINTESTINAL: No nausea, vomiting, diarrhea or constipation. GENITOURINARY: No dysuria, frequency, or change in urination. MUSCULOSKELETAL: No joint or muscle swelling or pain. No neck or back pain. SKIN: No rash NEUROLOGIC: No headache, vertigo, loss of consciousness, or change in strength/ sensation. <Adelina Corrales - Last Filed: 10/24/16 01:02> *Physical Exam - Vital Signs Last Vital Signs Temp Pulse Resp BP Pulse Ox 97 F L 91 H 16 93/66 90 L 10/23/16 22:54 10/23/16 22:54 10/23/16 22:54 10/23/16 22:54 10/23/16 22:54 - Physical Exam Comments: 10/24/16 00:49 GENERAL: Intoxicated. Awake, alert, and fully oriented, in no acute distress HEAD: No signs of trauma EYES: PERRLA, EOMI, sclera anicteric, conjunctiva clear ENT: Auricles normal inspection, hearing grossly normal, nares patent, oropharynx clear without exudates. Moist mucosa NECK: Normal ROM, supple, no lymphadenopathy, JVD, or masses LUNGS: Breath sounds equal, clear to auscultation bilaterally. No wheezes, and no crackles HEART: Regular rate and rhythm, normal S1 and S2, no murmurs, rubs or gallops ABDOMEN: Soft, nontender, normoactive bowel sounds. No guarding, no rebound. No masses EXTREMITIES: Normal range of motion, no edema. No clubbing or cyanosis. No cords, erythema, or tenderness NEUROLOGICAL: Cranial nerves II through XII grossly intact. Normal speech, normal gait SKIN: Warm, Dry, normal turgor, no rashes or lesions noted. ENDOCRINE: No increased thirst. No abnormal weight change. HEMATOLOGIC/LYMPHATIC: No anemia, easy bleeding, or history of blood clots. ALLERGIC/IMMUNOLOGIC: No hives or skin allergy. <Adelina Corrales - Last Filed: 10/24/16 01:02> Medical Decision Making - Medical Decision Making 10/24/16 01:02 Refuses to take scabies cream and intoxicated. Will await sobriety and discharge then. <Adelina Corrales - Last Filed: 10/24/16 01:02> *DC/Admit/Observation/Transfer - Discharge Dispostion Admit: No - Attestations Physician Attestion: 10/23/16 22:41 I, Dr. Jacob Bertrand, attest that this document has been prepared under my direction and personally reviewed by me in its entirety. I further attest, that it accurately reflects all work, treatment, procedures and medical decision -making performed by me. <Jacob Bertrand - Last Filed: 10/24/16 00:58> - Attestations Scribe Attestion: 10/24/16 00:52 Documentation prepared by Adelina Corrales, acting as medical records analyst for Jacob Bertrand MD. <Adelina Corrales - Last Filed: 10/24/16 01:02> Diagnosis at time of Disposition: Alcohol abuse, Alcohol intoxication, Scabies - Discharge Dispostion Disposition: HOME Condition at time of disposition: Improved - Referrals Referrals: Garima Bridges MD [Primary Care Provider] - - Patient Instructions Printed Discharge Instructions: DI for Alcohol Abuse
[2016-10-23 23:08] VITALS: BP 93/66; PULSE 91; TEMP 97; BMI 37.3
== END 2016-10-24 06:13 | disposition home or self-care (01) ==
LOC: JER 22:30
DX: F10.120 Alcohol abuse with intoxication, uncomplicated (principal); C45.9 Mesothelioma, unspecified; B86 Scabies
CPT/HCPCS: 99281-25

== ENCOUNTER → 2016-10-24 | Emergency (ER) | payer OTHER ==
[2016-10-24 20:59] VITALS: BP 129/78; PULSE 84; TEMP 98.2; BMI 35.9
--- NOTE | 2016-10-25 06:57 | PDOC ---
History of Present Illness <Lorri Kumar - Last Filed: 10/25/16 06:58> - General History Source: Patient Exam Limitations: No Limitations, Intoxication - History of Present Illness Initial Comments: 10/25/16 07:01 The patient is a 61 year old male, well known to the ER, with a significant past medical history of alcohol abuse and mesothelioma, who presents to the ER with alcohol intoxication. Patient is currently somnolent and is not complaining of any pain. There are no obvious injuries noted. <Sofi Jama - Last Filed: 10/25/16 07:01> <Richard Ulrich - Last Filed: 10/25/16 07:28> - General Chief Complaint: Alcohol intoxication Stated Complaint: ALCOHOL INTOXICATION Time Seen by Provider: 10/24/16 21:51 Past History - Past Medical History Anemia: No Asthma: No Cancer: Yes (mesothelioma) Cardiac Disorders: No CVA: No COPD: No CHF: No Dementia: No Diabetes: No GI Disorders: No Disorders: No HTN: No Hypercholesterolemia: No Kidney Stones: No Liver Disease: No Psychiatric Problems: Yes (alcoholism) Suicide Attempt (Hx): No Seizures: No Thyroid Disease: No - Surgical History Abdominal Surgery: No Appendectomy: No Cardiac Surgery: No Cholecystectomy: No Lung Surgery: No Neurologic Surgery: No Orthopedic Surgery: No - Family Disease History Family Disease History: CA: Mother - Reproductive History Testicular Surgery: No - Immunization History TDAP Vaccination: Yes Immunization Up to Date: Yes - Psycho/Social/Smoking Cessation Hx Anxiety: No Suicidal Ideation: No Smoking Status: No Smoking History: Never smoked Have you smoked in the past 12 months: No Number of Cigarettes Smoked Daily: 2 Cigars Per Day: 0 Information on smoking cessation initiated: No 'Breaking Loose' booklet given: 08/23/16 Hx Alcohol Use: No Drug/Substance Use Hx: No Substance Use Type: Alcohol Hx Substance Use Treatment: Yes ([facility]) <Lorri Kumar - Last Filed: 10/25/16 06:58> <Sofi Jama - Last Filed: 10/25/16 07:01> <Richard Ulrich - Last Filed: 10/25/16 07:28> - Past Medical History Allergies/Adverse Reactions: Allergies Allergy/AdvReac Type Severity Reaction Status Date / Time Fish Containing Products Allergy Mild Verified 10/22/16 21:08 Home Medications: Ambulatory Orders NK [No Known Home Medication] 10/15/16 Review of Systems - Review of Systems Able to Perform ROS?: No (Intoxicated) <Sofi Jama - Last Filed: 10/25/16 07:01> *Physical Exam - Vital Signs Last Vital Signs Temp Pulse Resp BP Pulse Ox 98.2 F 84 18 129/78 100 10/24/16 20:53 10/24/16 20:53 10/24/16 20:53 10/24/16 20:53 10/24/16 20:53 <Lorri Kumar - Last Filed: 10/25/16 06:58> - Vital Signs Last Vital Signs Temp Pulse Resp BP Pulse Ox 98.2 F 84 18 129/78 100 10/24/16 20:53 10/24/16 20:53 10/24/16 20:53 10/24/16 20:53 10/24/16 20:53 - Physical Exam Comments: 10/25/16 07:01 GENERAL: Well-appearing, well-nourished. No apparent distress. HEENT: (+) swelling around bilateral eyes, nonerythematous. Normocephalic, atraumatic. PERRL, EOM intact. CARDIOVASCULAR: Normal S1, S2. Regular rate and rhythm. PULMONARY: Clear to auscultation bilaterally. ABDOMEN: Soft, non-distended, non-tender. EXTREMITIES: Normal ROM in all four extremities. No gross deformities. SKIN: Warm, dry. No rash NEUROLOGICAL: No focal neurological deficits. <Sofi Jama - Last Filed: 10/25/16 07:01> - Vital Signs Last Vital Signs Temp Pulse Resp BP Pulse Ox 98.2 F 84 18 129/78 100 10/24/16 20:53 10/24/16 20:53 10/24/16 20:53 10/24/16 20:53 10/24/16 20:53 <Richard Ulrich - Last Filed: 10/25/16 07:28> Medical Decision Making - Medical Decision Making 10/25/16 06:59 Pt comes with alcohol abuse. Slept overnight in the ER. Woke up. Now with ashtma/COPD exacerbation. Pt is requesting a homeless group home. It is raining out and there is a Noreaster coming today; rain all day. He is homeless and I will not discharge him outside. He is awaiting protective services social worker. <Lorri Kumar - Last Filed: 10/25/16 06:58> *DC/Admit/Observation/Transfer <Lorri Kumar - Last Filed: 10/25/16 06:58> - Attestations Scribe Attestion: 10/25/16 07:03 Documentation prepared by Sofi Jama, acting as senior medical director for Lorri Kumar MD. <Sofi Jama - Last Filed: 10/25/16 07:01> - Discharge Dispostion Admit: No <Richard Ulrich - Last Filed: 10/25/16 07:28> Diagnosis at time of Disposition: Alcohol abuse - Discharge Dispostion Disposition: HOME Condition at time of disposition: Improved - Referrals Referrals: Garima Bridges MD [Primary Care Provider] - - Patient Instructions Printed Discharge Instructions: DI for Alcohol Abuse
== END | disposition home or self-care (01) ==
LOC: JER 20:30
DX: F10.120 Alcohol abuse with intoxication, uncomplicated (principal); C45.9 Mesothelioma, unspecified
CPT/HCPCS: 99283-25

== ENCOUNTER 2016-10-25 21:11 | Emergency (ER) | payer OTHER ==
[2016-10-25 21:34] VITALS: TEMP 97.8; BMI 37.3
--- NOTE | 2016-10-25 21:45 | PDOC ---
History of Present Illness - General Chief Complaint: Alcohol intoxication Stated Complaint: INTOX Time Seen by Provider: 10/25/16 21:34 - History of Present Illness Initial Comments: 10/26/16 02:17 Patient is 61-year-old male with history of alcohol abuse (well-known to this [facility]), history of mesothelioma, brought in by EMS for acute alcohol intoxication. Patient denies trauma, denies chest pain/abdominal pain/nausea/ vomiting/diarrhea. Patient has recently been diagnosed with scabies but has refused treatment on several occasions. REVIEW OF SYSTEMS Unable to obtain due to patient's intoxication EXAMINATION CONSTITUTIONAL: Somnolent but easily arousable, follows simple commands, alcohol on breath, disheveled,; in no apparent distress HEAD: Normocephalic; atraumatic EYES: PERRL; EOM intact ENMT: External appears normal; normal oropharynx NECK: Supple; non-tender; no cervical lymphadenopathy CARD: Normal S1, S2; no murmurs, rubs, or gallops RESP: Normal chest excursion with respiration; breath sounds clear and equal bilaterally; no wheezes, rhonchi, or rales ABD: Soft, non-distended; non-tender; no palpable organomegaly, no palpable hernias EXT: Normal ROM in all four extremities; non-tender to palpation; distal pulses intact SKIN: Warm, dry, n numerous excoriated lesions to arms and legs bilaterally; NEURO: Somnolent but easily arousable, moving all extremities symmetrically, follows commands, gait-deferred at this time. Past History - Past Medical History Allergies/Adverse Reactions: Allergies Allergy/AdvReac Type Severity Reaction Status Date / Time Fish Containing Products Allergy Mild Verified 10/25/16 21:33 Home Medications: Ambulatory Orders NK [No Known Home Medication] 10/15/16 Anemia: No Asthma: No Cancer: Yes (mesothelioma) Cardiac Disorders: No CVA: No COPD: No CHF: No Dementia: No Diabetes: No GI Disorders: No Disorders: No HTN: No Hypercholesterolemia: No Kidney Stones: No Liver Disease: No Psychiatric Problems: Yes (alcoholism) Suicide Attempt (Hx): No Seizures: No Thyroid Disease: No - Surgical History Abdominal Surgery: No Appendectomy: No Cardiac Surgery: No Cholecystectomy: No Lung Surgery: No Neurologic Surgery: No Orthopedic Surgery: No - Family Disease History Family Disease History: CA: Mother - Reproductive History Testicular Surgery: No - Immunization History TDAP Vaccination: Yes Immunization Up to Date: Yes - Psycho/Social/Smoking Cessation Hx Anxiety: No Suicidal Ideation: No Smoking Status: No Smoking History: Never smoked Have you smoked in the past 12 months: No Number of Cigarettes Smoked Daily: 2 Cigars Per Day: 0 Information on smoking cessation initiated: No 'Breaking Loose' booklet given: 08/23/16 Hx Alcohol Use: Yes Drug/Substance Use Hx: No Substance Use Type: Alcohol Hx Substance Use Treatment: Yes ([facility]) *Physical Exam - Vital Signs Last Vital Signs Temp Pulse Resp BP Pulse Ox 97.8 F 87 14 165/87 97 10/25/16 21:33 10/25/16 21:33 10/25/16 21:33 10/25/16 21:33 10/25/16 21:33 *DC/Admit/Observation/Transfer Diagnosis at time of Disposition: Alcohol intoxication - Discharge Dispostion Condition at time of disposition: Stable - Referrals Referrals: pmd, one week [Other] - Patient Instructions Printed Discharge Instructions: DI for Alcohol Abuse
[2016-10-26 13:18] VITALS: BP 130/32; PULSE 79
== END 2016-10-26 13:20 | disposition home or self-care (01) ==
LOC: JER 21:11
DX: F10.220 Alcohol dependence with intoxication, uncomplicated (principal); C45.9 Mesothelioma, unspecified
CPT/HCPCS: 99283-25

== ENCOUNTER 2016-10-26 20:34 | Emergency (ER) | payer OTHER ==
[2016-10-26 20:50] VITALS: BP 141/82; PULSE 80; TEMP 97.6; BMI 28.7
[2016-10-26] MEDS ORDERED: PERMETHRIN 5% TOPICAL CREAM 60 GM TUBE TP ONE (22:49)
--- NOTE | 2016-10-27 04:50 | PDOC ---
History of Present Illness - General Chief Complaint: Back Pain Stated Complaint: DIZZY/NAUSEA/VOMIT Time Seen by Provider: 10/26/16 21:24 History Source: Patient Exam Limitations: No Limitations - History of Present Illness Initial Comments: 10/27/16 04:50 Patient is a 61 year old male with h/o DVT, mesothelioma, etoh abuse, rencently diagnosed with scabies c/o LBP. This is chronic for the patient. He is requesting to eat. Per note from yesterday patient is refusing treatment for his scabies, was offered again and still refuses. PMHX as above PSCOHX: undomiciled, etoh Famhx: Noncontributory All: NKDA GENERAL/CONSTITUTIONAL: [No fever or chills. No weakness. No weight change.] HEAD, EYES, EARS, NOSE AND THROAT: [No change in vision. No ear pain or discharge. No sore throat.] CARDIOVASCULAR: [No chest pain or shortness of breath.] RESPIRATORY: [No cough, wheezing, or hemoptysis.] GASTROINTESTINAL: [No nausea, vomiting, diarrhea or constipation. No rectal bleeding.] GENITOURINARY: [No dysuria, frequency, or change in urination.] MUSCULOSKELETAL: [No joint or muscle swelling or pain. No neck or back pain.] SKIN AND BREASTS: (+) rash or easy bruising.] NEUROLOGIC: [No headache, vertigo, loss of consciousness, or loss of sensation.] PSYCHIATRIC: [No depression or anxiety.] ENDOCRINE: [No increased thirst. No abnormal weight change.] HEMATOLOGIC/LYMPHATIC: [No anemia, easy bleeding, or history of blood clots.] ALLERGIC/IMMUNOLOGIC: [No hives or skin allergy. No latex allergy.] GENERAL: [The patient is awake, alert, and fully oriented, in no acute distress. ] HEAD: [Normal with no signs of trauma.] EYES: [Pupils equal, round and reactive to light, extraocular movements intact, sclera anicteric, conjunctiva clear.] ENT: [Ears normal, nares patent, oropharynx clear without exudates. Moist mucous membranes.] NECK: [Normal range of motion, supple without lymphadenopathy, JVD, or masses.] LUNGS: [Breath sounds equal, clear to auscultation bilaterally. No wheezes, and no crackles.] HEART: [Regular rate and rhythm, normal S1 and S2 without murmur, rub.] ABDOMEN: [Soft, nontender, normoactive bowel sounds. No guarding, no rebound. No masses.] EXTREMITIES: [Normal range of motion, no edema. No clubbing or cyanosis. No cords, erythema, or tenderness.] NEUROLOGICAL: [Cranial nerves II through XII grossly intact. Normal speech, normal gait.] PSYCH: [Normal mood, normal affect.] SKIN: [Warm, Dry, normal turgor, (+) liner rashes, puretic rash to the left forearm, (-) lesions noted.] Past History - Past Medical History Allergies/Adverse Reactions: Allergies Allergy/AdvReac Type Severity Reaction Status Date / Time Fish Containing Products Allergy Mild Verified 10/26/16 20:45 Home Medications: Ambulatory Orders NK [No Known Home Medication] 10/15/16 Anemia: No Asthma: No Cancer: Yes (mesothelioma) Cardiac Disorders: No CVA: No COPD: No CHF: No Dementia: No Diabetes: No GI Disorders: No Disorders: No HTN: No Hypercholesterolemia: No Kidney Stones: No Liver Disease: No Psychiatric Problems: Yes (alcoholism) Suicide Attempt (Hx): No Seizures: No Thyroid Disease: No - Surgical History Abdominal Surgery: No Appendectomy: No Cardiac Surgery: No Cholecystectomy: No Lung Surgery: No Neurologic Surgery: No Orthopedic Surgery: No - Family Disease History Family Disease History: CA: Mother - Reproductive History Testicular Surgery: No - Immunization History TDAP Vaccination: Yes Immunization Up to Date: Yes - Psycho/Social/Smoking Cessation Hx Anxiety: No Suicidal Ideation: No Smoking Status: No Smoking History: Never smoked Have you smoked in the past 12 months: No Number of Cigarettes Smoked Daily: 2 Cigars Per Day: 0 Information on smoking cessation initiated: No 'Breaking Loose' booklet given: 08/23/16 Hx Alcohol Use: Yes Drug/Substance Use Hx: No Substance Use Type: Alcohol Hx Substance Use Treatment: Yes ([facility]) *Physical Exam - Vital Signs Last Vital Signs Temp Pulse Resp BP Pulse Ox 97.6 F 80 20 141/82 96 10/26/16 20:43 10/26/16 20:43 10/26/16 20:43 10/26/16 20:43 10/26/16 22:00 Medical Decision Making - Medical Decision Making 10/27/16 05:35 Patient is a 61 year old male with h/o DVT, mesothelioma, etoh abuse, recently diagnosed with scabies c/o LBP which is chronic and recently diagnosed with scabies. still refusing treatment. permethrim ordered I discussed the physical exam findings, ancillary test results and final diagnoses with the patient. I answered all of the patient's questions. The patient was satisfied with the care received and felt comfortable with the discharge plan and treatment plan. The Patient agrees to follow up with the primary care physician within 24-72 hours. *DC/Admit/Observation/Transfer Diagnosis at time of Disposition: Alcohol intoxication, Scabies - Discharge Dispostion Disposition: HOME Condition at time of disposition: Stable - Patient Instructions Additional Instructions: Your Discharge Instructions: You must call primary care physician within 24 hours to arrange follow-up. Return to the Emergency Department with any new, persistent or worsening symptoms, for fever, chills, SOB, dizziness or any other concerning changes that may occur. YOU the lotion as instructed
[2016-10-27] MEDS ORDERED: RANITIDINE HCL 150 MG TABLET (FP) PO ONE (06:44)
[2016-10-27] MEDS ORDERED: ONDANSETRON 4 MG TABLET PO ONE (06:44)
[2016-10-27] MEDS ORDERED: ONDANSETRON *ODT* 4 MG TABLET ONE (06:45)
[2016-10-27] MEDS ORDERED: RANITIDINE HCL 150 MG TABLET (FP) ONE (06:45)
== END 2016-10-27 06:57 | disposition home or self-care (01) ==
LOC: JER 20:34
DX: F10.220 Alcohol dependence with intoxication, uncomplicated (principal); B86 Scabies; C45.9 Mesothelioma, unspecified; M54.5 Low back pain
CPT/HCPCS: 99282-25

== ENCOUNTER 2016-10-27 19:40 | Emergency (ER) | payer OTHER ==
[2016-10-27] MEDS ORDERED: PERMETHRIN 5% TOPICAL CREAM 60 GM TUBE TP ONE (20:14)
[2016-10-27 20:39] VITALS: BMI 33.2
--- NOTE | 2016-10-28 01:36 | PDOC ---
History of Present Illness - General History Source: Patient, Old Records Exam Limitations: Intoxication - History of Present Illness Initial Comments: The patient is a 61 year old male with significant past medical of EtOH abuse and chronic well know to this emergency department, BIBA, with alcohol on breath , for evaluation of intoxication. In the emergency department the patient was conversant and joking. In the emergency department the patient was able to ambulate to the bathroom, take a shower, and put in his permathane. <Isaak Stephenson - Last Filed: 10/28/16 01:36> <Sue Casanova - Last Filed: 10/29/16 02:43> - General Chief Complaint: Scabies Stated Complaint: INTOX Time Seen by Provider: 10/27/16 20:11 Past History <Isaak Stephenson - Last Filed: 10/28/16 01:36> - Past Medical History Anemia: No Asthma: No Cancer: Yes (mesothelioma) Cardiac Disorders: No CVA: No COPD: No CHF: No Dementia: No Diabetes: No GI Disorders: No Disorders: No HTN: No Hypercholesterolemia: No Kidney Stones: No Liver Disease: No Psychiatric Problems: Yes (alcoholism) Suicide Attempt (Hx): No Seizures: No Thyroid Disease: No - Surgical History Abdominal Surgery: No Appendectomy: No Cardiac Surgery: No Cholecystectomy: No Lung Surgery: No Neurologic Surgery: No Orthopedic Surgery: No - Family Disease History Family Disease History: CA: Mother - Reproductive History Testicular Surgery: No - Immunization History TDAP Vaccination: Yes Immunization Up to Date: Yes - Psycho/Social/Smoking Cessation Hx Anxiety: No Suicidal Ideation: No Smoking Status: No Smoking History: Unknown if ever smoked Have you smoked in the past 12 months: No Number of Cigarettes Smoked Daily: 2 Cigars Per Day: 0 'Breaking Loose' booklet given: 08/23/16 Hx Alcohol Use: Yes Drug/Substance Use Hx: No Substance Use Type: Alcohol Hx Substance Use Treatment: Yes ([facility]) <Sue Casanova - Last Filed: 10/29/16 02:43> - Past Medical History Allergies/Adverse Reactions: Allergies Allergy/AdvReac Type Severity Reaction Status Date / Time Fish Containing Products Allergy Mild Verified 10/26/16 20:45 Home Medications: Ambulatory Orders NK [No Known Home Medication] 10/15/16 Review of Systems - Review of Systems Able to Perform ROS?: Yes Comments:: CONSTITUTIONAL: Present: Alcohol intoxication Absent: fever, no chills, no fatigue EYES: Absent: visual changes ENT: Absent: ear pain, no sore throat CARDIOVASCULAR: Absent: chest pain, no palpitations RESPIRATORY: Absent: cough, no SOB GI: Absent: abdominal pain, no nausea, no vomiting, no constipation, no diarrhea GENITOURINARY: Absent: dysuria, no frequency, no hematuria MUSCULOSKELETAL: Absent: back pain, no arthralgia, no myalgia SKIN: Absent: rash NEURO: Absent: headache <Isaak Stephenson - Last Filed: 10/28/16 01:36> *Physical Exam - Vital Signs Last Vital Signs Temp Pulse Resp BP Pulse Ox 97.8 F 79 16 109/66 96 10/27/16 20:11 10/27/16 20:11 10/27/16 20:11 10/27/16 20:11 10/27/16 20:20 - Physical Exam Comments: GENERAL: (+) Alcohol on breath. Well-nourished. No apparent distress. HEENT: Normocephalic, atraumatic. PERRL, EOM intact. CARDIOVASCULAR: Normal S1, S2. Regular rate and rhythm. PULMONARY: Clear to auscultation bilaterally. ABDOMEN: Soft, non-distended, non-tender. EXTREMITIES: Normal ROM in all four extremities. No gross deformities. SKIN: Warm, dry. No rash NEUROLOGICAL: (+) No focal neurological deficits. Slurred speech secondary to alcohol intoxication <Isaak Stephenson - Last Filed: 10/28/16 01:36> - Vital Signs Last Vital Signs Temp Pulse Resp BP Pulse Ox 97.8 F 79 16 109/66 96 10/27/16 20:11 10/27/16 20:11 10/27/16 20:11 10/27/16 20:11 10/27/16 20:20 <Sue Casanova - Last Filed: 10/29/16 02:43> ED Treatment Course - Medications Given in the ED: ED Medications Discontinued Medications Generic Name Dose Route Start Last Admin Trade Name Freq PRN Reason Stop Dose Admin Permethrin 1 applic 10/27/16 20:14 10/27/16 21:46 Elimite - TP 10/27/16 20:15 1 applic ONCE ONE Administration <Isaak Stephenson - Last Filed: 10/28/16 01:36> - Medications Given in the ED: ED Medications Discontinued Medications Generic Name Dose Route Start Last Admin Trade Name Francisco Javier PRN Reason Stop Dose Admin Permethrin 1 applic 10/27/16 20:14 10/27/16 21:46 Elimite - TP 10/27/16 20:15 1 applic ONCE ONE Administration <Sue Casanova - Last Filed: 10/29/16 02:43> *DC/Admit/Observation/Transfer - Attestations Scribe Attestion: Documentation prepared by Isaak Stephenson, acting as certified medical records coder for Dr. Sue Casanova MD. <Isaak Stephenson - Last Filed: 10/28/16 01:36> <Sue Casanova - Last Filed: 10/29/16 02:43> Diagnosis at time of Disposition: Alcohol abuse, Scabies - Discharge Dispostion Disposition: HOME Condition at time of disposition: Improved - Patient Instructions Printed Discharge Instructions: DI for Alcohol Abuse, DI for Scabies
--- NOTE | 2016-10-28 06:02 | PDOC ---
*Physical Exam - Vital Signs Last Vital Signs Temp Pulse Resp BP Pulse Ox 97.8 F 79 16 109/66 95 10/27/16 20:11 10/27/16 20:11 10/27/16 20:11 10/27/16 20:11 10/28/16 01:54 ED Treatment Course - Medications Given in the ED: ED Medications Discontinued Medications Generic Name Dose Route Start Last Admin Trade Name Freq PRN Reason Stop Dose Admin Permethrin 1 applic 10/27/16 20:14 10/27/16 21:46 Elimite - TP 10/27/16 20:15 1 applic ONCE ONE Administration *DC/Admit/Observation/Transfer Diagnosis at time of Disposition: Alcohol abuse, Scabies - Discharge Dispostion Disposition: HOME Condition at time of disposition: Improved Admit: No - Patient Instructions Printed Discharge Instructions: DI for Alcohol Abuse, DI for Scabies
[2016-10-28 06:14] VITALS: BP 110/69; PULSE 80; TEMP 97.6
[2016-10-28] MEDS ORDERED: ALBUTEROL SO4 2.5/IPRATROPIUM 0.5 INH SOL 3 ML VIAL.NEB. NEB STA (06:35)
== END 2016-10-28 07:18 | disposition home or self-care (01) ==
LOC: JER 19:40
DX: F10.220 Alcohol dependence with intoxication, uncomplicated (principal); B86 Scabies; C45.9 Mesothelioma, unspecified
CPT/HCPCS: 99282-25

== ENCOUNTER → 2016-10-28 | Emergency (ER) | payer OTHER ==
[2016-10-28 16:28] VITALS: BP 134/67; PULSE 86; TEMP 99.4; BMI 32.1
--- NOTE | 2016-10-28 17:44 | PDOC ---
History of Present Illness - History of Present Illness Initial Comments: 10/28/16 18:10 Patient is a 61 year old male, well known to the ED, with significant medical hx of COPD and mesothelioma who is returning to the ED via EMS for public intoxication after being discharged at 11AM this morning. The patient was offered to stay for detox and he decided to go home. Patient was ambulatory and conversant, he was safe to discharge home. <Adelina Corrales - Last Filed: 10/28/16 18:10> <Sue Casanova - Last Filed: 10/29/16 02:46> - General Chief Complaint: Cold Symptoms Stated Complaint: INTOX Time Seen by Provider: 10/28/16 16:59 Past History <Adelina Corrales - Last Filed: 10/28/16 18:10> - Past Medical History Anemia: No Asthma: No Cancer: Yes (mesothelioma) Cardiac Disorders: No CVA: No COPD: No CHF: No Dementia: No Diabetes: No GI Disorders: No Disorders: No HTN: No Hypercholesterolemia: No Kidney Stones: No Liver Disease: No Psychiatric Problems: Yes (alcoholism) Suicide Attempt (Hx): No Seizures: No Thyroid Disease: No - Surgical History Abdominal Surgery: No Appendectomy: No Cardiac Surgery: No Cholecystectomy: No Lung Surgery: No Neurologic Surgery: No Orthopedic Surgery: No - Family Disease History Family Disease History: CA: Mother - Reproductive History Testicular Surgery: No - Immunization History TDAP Vaccination: Yes Immunization Up to Date: Yes - Psycho/Social/Smoking Cessation Hx Anxiety: No Suicidal Ideation: No Smoking Status: No Smoking History: Never smoked Have you smoked in the past 12 months: No Number of Cigarettes Smoked Daily: 2 Cigars Per Day: 0 Information on smoking cessation initiated: No 'Breaking Loose' booklet given: 08/23/16 Hx Alcohol Use: No Drug/Substance Use Hx: Yes Substance Use Type: Alcohol Hx Substance Use Treatment: Yes ([facility]) <Sue Casanova - Last Filed: 10/29/16 02:46> - Past Medical History Allergies/Adverse Reactions: Allergies Allergy/AdvReac Type Severity Reaction Status Date / Time Fish Containing Products Allergy Mild Verified 10/26/16 20:45 Home Medications: Ambulatory Orders NK [No Known Home Medication] 10/15/16 Review of Systems - Review of Systems Comments:: 10/28/16 18:14 CONSTITUTIONAL: Absent: fever, no chills, no fatigue EYES: Absent: visual changes ENT: Absent: ear pain, no sore throat CARDIOVASCULAR: Absent: chest pain, no palpitations RESPIRATORY: Absent: cough, no SOB GI: Absent: abdominal pain, no nausea, no vomiting, no constipation, no diarrhea GENITOURINARY: Absent: dysuria, no frequency, no hematuria MUSKULOSKELETAL: Absent: back pain, no arthralgia, no myalgia SKIN: Absent: rash NEURO: Absent: headache <Adelina Corrales - Last Filed: 10/28/16 18:10> *Physical Exam - Vital Signs Last Vital Signs Temp Pulse Resp BP Pulse Ox 99.4 F 86 20 134/67 92 L 10/28/16 16:24 10/28/16 16:24 10/28/16 16:24 10/28/16 16:24 10/28/16 16:24 - Physical Exam Comments: 10/28/16 18:14 GENERAL: Alcohol on breath. Disheveled. No apparent distress. HEENT: Normocephalic, atraumatic. PERRL, EOM intact. EXTREMITIES: Normal ROM in all four extremities. No gross deformities. SKIN: Warm, dry. No rash NEUROLOGICAL: Ambulatory. Awake, alert. Conversant. No focal neurological deficits. <Adelina Corrales - Last Filed: 10/28/16 18:10> - Vital Signs Last Vital Signs Temp Pulse Resp BP Pulse Ox 99.4 F 86 20 134/67 92 L 10/28/16 16:24 10/28/16 16:24 10/28/16 16:24 10/28/16 16:24 10/28/16 16:24 <Sue Casanova - Last Filed: 10/29/16 02:46> Medical Decision Making - Medical Decision Making 10/28/16 17:38 61-year-old Male Well Known to the Emergency Department and Seen on a Daily Basis for alcohol Antibiotics. Long History of Alcohol Abuse. Today, He Is Ambulatory, Conversant. - He Has Some Alcohol on Breath, but He Is Alert and Oriented 3. No Ataxia. He expressed interest in detox and I called [facility] and spoke to Doreen Willis , nurse practitioner She will call me back to see this patient will be eligible HOWEVER Sunil decided he did not want detox today and left. Doreen Willis did call me back and the pt's last alxohol detox at [facility] was August 23 2016 so he could have gone there if he had chosen to 10/29/16 02:44 <Sue Casanova - Last Filed: 10/29/16 02:46> *DC/Admit/Observation/Transfer - Attestations Scribe Attestion: 10/28/16 18:17 Documentation prepared by Adelina Corrales, acting as medical center representative for Sue Casanova MD. <Adelina Corrales - Last Filed: 10/28/16 18:10> <Sue Casanova - Last Filed: 10/29/16 02:46> Diagnosis at time of Disposition: Alcohol abuse - Discharge Dispostion Disposition: HOME Condition at time of disposition: Stable - Patient Instructions Printed Discharge Instructions: DI for Alcohol Abuse
== END | disposition home or self-care (01) ==
LOC: JER 16:11
DX: F10.120 Alcohol abuse with intoxication, uncomplicated (principal); J44.9 Chronic obstructive pulmonary disease, unspecified; C45.9 Mesothelioma, unspecified
CPT/HCPCS: 99283-25

== ENCOUNTER 2016-10-30 00:52 | Emergency (ER) | payer OTHER ==
[2016-10-30 01:38] VITALS: BP 115/70; PULSE 92; BMI 33.0
--- NOTE | 2016-10-30 01:52 | PDOC ---
History of Present Illness - General History Source: Patient Exam Limitations: No Limitations - History of Present Illness Initial Comments: 10/30/16 02:23 The patient is a 61 year old male, well known to the ER, with a significant past medical history of mesothelioma and alcohol abuse, who presents to the ER for s/p mechanical fall. Patient is currently somnolent and is not complaining of any pain. Patient reports he fell down off a wheelchair while going into a cab and states the chair fell on him. Now he has complaints of pain to his entire right side. No head trauma or LOC. There are no obvious injuries noted. <Julia Woodruff - Last Filed: 10/30/16 02:23> - General History Source: Patient <Altaf Iniguez - Last Filed: 10/30/16 06:23> - General Chief Complaint: Injury Stated Complaint: FALL Time Seen by Provider: 10/30/16 01:52 Past History <Julia Woodruff - Last Filed: 10/30/16 02:23> - Past Medical History Anemia: No Asthma: No Cancer: Yes (mesothelioma) Cardiac Disorders: No CVA: No COPD: No CHF: No Dementia: No Diabetes: No GI Disorders: No Disorders: No HTN: No Hypercholesterolemia: No Kidney Stones: No Liver Disease: No Psychiatric Problems: Yes (alcoholism) Suicide Attempt (Hx): No Seizures: No Thyroid Disease: No - Surgical History Abdominal Surgery: No Appendectomy: No Cardiac Surgery: No Cholecystectomy: No Lung Surgery: No Neurologic Surgery: No Orthopedic Surgery: No - Family Disease History Family Disease History: CA: Mother - Reproductive History Testicular Surgery: No - Immunization History TDAP Vaccination: Yes Immunization Up to Date: Yes - Psycho/Social/Smoking Cessation Hx Anxiety: No Suicidal Ideation: No Smoking Status: No Smoking History: Never smoked Have you smoked in the past 12 months: No Number of Cigarettes Smoked Daily: 2 Cigars Per Day: 0 Information on smoking cessation initiated: No 'Breaking Loose' booklet given: 08/23/16 Hx Alcohol Use: Yes Drug/Substance Use Hx: No Substance Use Type: Alcohol Hx Substance Use Treatment: Yes ([facility]) <Altaf Iniguez - Last Filed: 10/30/16 06:23> - Past Medical History Allergies/Adverse Reactions: Allergies Allergy/AdvReac Type Severity Reaction Status Date / Time Fish Containing Products Allergy Mild Verified 10/30/16 01:35 Home Medications: Ambulatory Orders NK [No Known Home Medication] 10/15/16 Review of Systems - Review of Systems Able to Perform ROS?: Yes Comments:: 10/30/16 02:23 CONSTITUTIONAL: Absent: fever, no chills, no fatigue EYES: Absent: visual changes ENT: Absent: ear pain, no sore throat CARDIOVASCULAR: Absent: chest pain, no palpitations RESPIRATORY: Absent: cough, no SOB GI: Absent: abdominal pain, no nausea, no vomiting, no constipation, no diarrhea GENITOURINARY: Absent: dysuria, no frequency, no hematuria MUSCULOSKELETAL: +right side pain Absent: back pain, no arthralgia SKIN: Absent: rash NEURO: Absent: headache <Julia Woodruff - Last Filed: 10/30/16 02:23> *Physical Exam - Vital Signs Last Vital Signs Temp Pulse Resp BP Pulse Ox 99.0 F 92 H 14 115/70 89 L 10/30/16 01:35 10/30/16 01:35 10/30/16 01:35 10/30/16 01:35 10/30/16 01:35 - Physical Exam Comments: 10/30/16 02:23 GENERAL: Somnolent, well-nourished. No apparent distress. HEENT: Normocephalic, atraumatic. PERRL, EOM intact. CARDIOVASCULAR: Normal S1, S2. Regular rate and rhythm. PULMONARY: Clear to auscultation bilaterally. ABDOMEN: Soft, non-distended, non-tender. EXTREMITIES: Normal ROM in all four extremities. No gross deformities. SKIN: Warm, dry. No rash NEUROLOGICAL: No focal neurological deficits. <Julia Woodruff - Last Filed: 10/30/16 02:23> - Vital Signs Last Vital Signs Temp Pulse Resp BP Pulse Ox 99.0 F 92 H 14 115/70 89 L 10/30/16 01:35 10/30/16 01:35 10/30/16 01:35 10/30/16 01:35 10/30/16 01:35 <Altaf Iniguez - Last Filed: 10/30/16 06:23> Medical Decision Making - Medical Decision Making 10/30/16 06:22 Dr. Iniguez: The scribe's documentation has been prepared under my direction and personally reviewed by me in its entirery. I confirm that the note above accurately reflects all work, treatment, procedures, and medical decision making performed by me. <Altaf Iniguez - Last Filed: 10/30/16 06:23> *DC/Admit/Observation/Transfer - Attestations Scribe Attestion: 10/30/16 02:23 Documentation prepared by Julia Woodruff, acting as medical videographer for Altaf Iniguez MD/DO. <Julia Woodruff - Last Filed: 10/30/16 02:23> - Discharge Dispostion Admit: No <Altaf Iniguez - Last Filed: 10/30/16 06:23> Diagnosis at time of Disposition: Muscle pain, Fall - Discharge Dispostion Disposition: HOME Condition at time of disposition: Stable - Patient Instructions Printed Discharge Instructions: DI for Alcohol Abuse
[2016-10-30] MEDS ORDERED: ONDANSETRON *ODT* 4 MG TABLET SL ONE (06:47)
[2016-10-30] MEDS ORDERED: ONDANSETRON *ODT* 4 MG TABLET ONE (06:49)
[2016-10-30 07:00] VITALS: TEMP 98.4
== END 2016-10-30 07:00 | disposition home or self-care (01) ==
LOC: JER 00:52
DX: S20.211A Contusion of right front wall of thorax, initial encounter (principal); M25.531 Pain in right wrist; F10.20 Alcohol dependence, uncomplicated; W05.0XXA Fall from non-moving wheelchair, initial encounter; Y93.89 Activity, other specified; Y92.480 Sidewalk as the place of occurrence of the external cause
CPT/HCPCS: 73130-TC-RT; 73560-TC-RT; 99281-25

== ENCOUNTER 2016-10-30 09:55 | Emergency (ER) | payer OTHER ==
[2016-10-30] MEDS ORDERED: chlordiazePOXIDE HCL 25 MG CAPSULE PO ONE (10:01)
[2016-10-30] MEDS ORDERED: LORazepam 1 MG TABLET PO ONE (10:01)
[2016-10-30] MEDS ORDERED: ACETAMINOPHEN 325 MG TABLET (FP) PO ONE (10:01)
[2016-10-30] MEDS ORDERED: LORazepam 0.5 MG TABLET ONE (10:04)
[2016-10-30] MEDS ORDERED: chlordiazePOXIDE HCL 25 MG CAPSULE ONE (10:04)
[2016-10-30] MEDS ORDERED: ACETAMINOPHEN 325 MG TABLET (FP) ONE (10:08)
[2016-10-30 10:24] VITALS: TEMP 99; BMI 33.7
--- NOTE | 2016-10-30 10:25 | PDOC ---
*Physical Exam - Physical Exam Comments: 10/30/16 10:23 Pt seen by the Advanced Practice Provider under my direct supervision Pt interviewed and examined He is clinically sober He is complaining of right-sided rib pain without associated abdominal pain or dyspnea He is complaining of right sided wrist pain, without any deficits to motor strength in the right upper extremity Abdomen is soft and non-tender Will provide oral Ativan and oral Librium as his last alcoholic beverage was yesterday morning, and he will require benzodiazepine therapy to avoid withdrawal Will review plain film of right wrist which was obtained earlier today Will obtain CT of chest to rule out rib or associated underlying lung injury I agree with plan as outlined by the Advanced Practice Provider 10/30/16 12:02 CT and wrist x-ray noted Of note, the patient has no midline back pain, nor does he have midline tenderness on palpation of the cervical, thoracic, lumbar vertebrae I feel that the CT findings are chronic He understands the importance of following up with his primary care physician and orthopedics for further evaluation We have provided him with copies of the wrist and CAT scan reports We have counseled him regarding the importance of seeking alcohol detox and rehabilitation At this time, he refuses both Clinical impression: Wrist contusion Rib contusion Chronic alcohol abuse ED Treatment Course - Medications Given in the ED: ED Medications Discontinued Medications Generic Name Dose Route Start Last Admin Trade Name Francisco Javier PRN Reason Stop Dose Admin Acetaminophen 975 mg 10/30/16 10:01 10/30/16 10:11 Tylenol - PO 10/30/16 10:02 975 mg ONCE ONE Administration Chlordiazepoxide HCl 50 mg 10/30/16 10:01 10/30/16 10:07 Librium - PO 10/30/16 10:02 50 mg ONCE ONE Administration Lorazepam 1 mg 10/30/16 10:01 10/30/16 10:07 Ativan - PO 10/30/16 10:02 1 mg ONCE ONE Administration *DC/Admit/Observation/Transfer Diagnosis at time of Disposition: Alcohol abuse, Alcohol dependence - Referrals Referrals: Fabiana Lin MD [Staff Physician] - Call tomorrow Chandra Munguia MD [Staff Physician] - Call tomorrow - Patient Instructions Additional Instructions: Your CAT scan of the chest did not show any new injuries of your ribs or lungs. There was some evidence of an old injury in the thoracic vertebral column, which you should speak with your primary care physician and an orthopedic doctor about. Return to the emergency department immediately with ANY new, persistent or worsening symptoms. You MUST call and follow up with your doctor tomorrow. Please make sure your doctor reviews the results of your emergency department evaluation.
--- NOTE | 2016-10-30 11:19 | PDOC ---
History of Present Illness - General Chief Complaint: Injury Stated Complaint: FALL Time Seen by Provider: 10/30/16 10:00 History Source: Patient Exam Limitations: No Limitations - History of Present Illness Initial Comments: 10/30/16 11:15 61-year-old male brought into the ED for evaluation of right wrist pain and right rib pain after he fell. Patient states was in a wheelchair that went forward causing it to land on his right wrist and then striking his right chest onto the sidewalk. He yesterday had an x-ray of his hand but not of his ribs or his wrist. Patient also states that a knee x-ray but states presently has no complaints of knee pain. Patient currently denies hitting his head and denies any other complaints presently. Occurred: reports: yesterday Severity: reports: mild Method of Injury: Yes: fall Associated Symptoms (Fall): denies symptoms Past History - Past Medical History Allergies/Adverse Reactions: Allergies Allergy/AdvReac Type Severity Reaction Status Date / Time Fish Containing Products Allergy Mild Verified 10/30/16 01:35 Home Medications: Ambulatory Orders NK [No Known Home Medication] 10/15/16 Anemia: No Asthma: No Cancer: Yes (mesothelioma) Cardiac Disorders: No CVA: No COPD: No CHF: No Dementia: No Diabetes: No GI Disorders: No Disorders: No HTN: No Hypercholesterolemia: No Kidney Stones: No Liver Disease: No Psychiatric Problems: Yes (alcoholism) Suicide Attempt (Hx): No Seizures: No Thyroid Disease: No - Surgical History Abdominal Surgery: No Appendectomy: No Cardiac Surgery: No Cholecystectomy: No Lung Surgery: No Neurologic Surgery: No Orthopedic Surgery: No - Family Disease History Family Disease History: CA: Mother - Reproductive History Testicular Surgery: No - Immunization History TDAP Vaccination: Yes Immunization Up to Date: Yes - Psycho/Social/Smoking Cessation Hx Anxiety: No Suicidal Ideation: No Smoking Status: No Smoking History: Former smoker Have you smoked in the past 12 months: No Number of Cigarettes Smoked Daily: 2 Cigars Per Day: 0 Information on smoking cessation initiated: No 'Breaking Loose' booklet given: 08/23/16 Hx Alcohol Use: Yes Drug/Substance Use Hx: No Substance Use Type: Alcohol Hx Substance Use Treatment: Yes ([facility]) Patient Lives Alone: Yes Trauma Specific PMHX - Complaint Specific PMHX Arthritis: No Back Injury: Yes (seen at this hospital for the rib fractures) Review of Systems - Review of Systems Able to Perform ROS?: Yes Constitutional: No: Symptoms Reported HEENTM: No: Symptoms Reported Respiratory: No: Symptoms reported Cardiac (ROS): No: Symptoms Reported ABD/GI: No: Symptoms Reported : No: Symptoms Reported Musculoskeletal: Yes: Joint Pain (right wrist right ribs) Integumentary: No: Symptoms Reported Neurological: No: Symptoms reported Hematologic/Lymphatic: No: Symptoms Reported *Physical Exam - Vital Signs Last Vital Signs Temp Pulse Resp BP Pulse Ox 99 F 88 18 145/94 96 10/30/16 10:09 10/30/16 10:09 10/30/16 10:09 10/30/16 10:10/30/16 10:09 - Physical Exam General Appearance: Yes: Nourished, Appropriately Dressed. No: Apparent Distress HEENT: positive: EOMI, DOUGLAS, Pharynx Normal (dry) Neck: positive: Supple Respiratory/Chest: positive: Chest Tender (right 7-8th rib tenderness anteriorly of MAL. No crepitus or deformity. No ecchymosis), Lungs Clear, Normal Breath Sounds. negative: Respiratory Distress, Accessory Muscle Use Cardiovascular: positive: Regular Rhythm, Regular Rate. negative: Murmur Gastrointestinal/Abdominal: positive: Soft. negative: Tenderness Extremity: positive: Normal Capillary Refill, Normal Range of Motion, Tender ( to the medial aspect of right wrist) Integumentary: positive: Normal Color, Warm, Moist, Swelling (to the right wrist with mild ecchymosis) Neurologic: positive: Motor Strength 5/5 (right hand grasp. ambulatory) ED Treatment Course - RADIOLOGY Radiology Studies Ordered: Category Date Time Status CHEST CT WITHOUT CONTRAST [CT] Stat CT Scan 10/30/16 10:18 Ordered WRIST- RIGHT [RAD] Stat Radiology 10/30/16 10:19 Ordered - Medications Given in the ED: ED Medications Discontinued Medications Generic Name Dose Route Start Last Admin Trade Name Freq PRN Reason Stop Dose Admin Acetaminophen 975 mg 10/30/16 10:01 10/30/16 10:11 Tylenol - PO 10/30/16 10:02 975 mg ONCE ONE Administration Chlordiazepoxide HCl 50 mg 10/30/16 10:01 10/30/16 10:07 Librium - PO 10/30/16 10:02 50 mg ONCE ONE Administration Lorazepam 1 mg 10/30/16 10:01 10/30/16 10:07 Ativan - PO 10/30/16 10:02 1 mg ONCE ONE Administration Medical Decision Making - Medical Decision Making 10/30/16 11:21 Patient status post fall complaining of right rib pain and right wrist pain. Patient's x-ray from yesterday of the right hand and knee were reviewed and negative. Patient was ordered for CT of the chest along with the right wrist. Patient otherwise comfortable. 10/30/16 12:25 X-ray shows no acute fracture or dislocation seen. Unchanged study from 2015. Multiple right and left old rib fractures as seen above with no gross acute rib fractures identified. Patient will be discharged. *DC/Admit/Observation/Transfer Diagnosis at time of Disposition: Alcohol abuse, Alcohol dependence Contusion of rib on right side Qualifiers: Encounter type: initial encounter Qualified Code(s): S20.211A - Contusion of right front wall of thorax, initial encounter Pain in wrist Qualifiers: Laterality: right Qualified Code(s): M25.531 - Pain in right wrist - Discharge Dispostion Disposition: HOME Condition at time of disposition: Good - Referrals Referrals: Chandra Munguia MD [Staff Physician] - Call tomorrow Fabiana Lin MD [Staff Physician] - Call tomorrow - Patient Instructions Printed Discharge Instructions: DI for Contusion Additional Instructions: Your CAT scan of the chest did not show any new injuries of your ribs or lungs. There was some evidence of an old injury in the thoracic vertebral column, which you should speak with your primary care physician and an orthopedic doctor about. Return to the emergency department immediately with ANY new, persistent or worsening symptoms. You MUST call and follow up with your doctor tomorrow. Please make sure your doctor reviews the results of your emergency department evaluation.
[2016-10-30 12:52] VITALS: BP 147/80; PULSE 81
== END 2016-10-30 12:51 | disposition home or self-care (01) ==
LOC: JER 09:55
DX: F10.20 Alcohol dependence, uncomplicated (principal); W05.0XXA Fall from non-moving wheelchair, initial encounter; Y93.89 Activity, other specified
CPT/HCPCS: 71250-TC; 73110-TC-RT; 99282-25

== ENCOUNTER 2016-11-01 23:41 | Emergency (ER) | payer OTHER ==
--- NOTE | 2016-11-02 01:04 | PDOC ---
History of Present Illness - General History Source: Patient Exam Limitations: No Limitations - History of Present Illness Initial Comments: 11/02/16 01:30 The patient is a 61-year-old male with a significant past medical history of alcohol abuse and chronic back pain, and presents to the emergency department with lower back pain and alcohol intoxication. The patient is a frequent visitor of this ER. He is requesting detox. The patient denies chest pain, shortness of breath, headache and dizziness. The patient denies fever, chills, nausea, vomit, diarrhea and constipation. The patient denies dysuria, frequency, urgency and hematuria. Social History: alcohol abuse <Joelle Smalls - Last Filed: 11/02/16 01:29> <Lorri Kumar - Last Filed: 11/03/16 01:13> - General Chief Complaint: Back Pain Stated Complaint: BACK PAIN Time Seen by Provider: 11/01/16 23:54 Past History <Joelle Smalls - Last Filed: 11/02/16 01:29> - Past Medical History Anemia: No Asthma: No Cancer: Yes (mesothelioma) Cardiac Disorders: No CVA: No COPD: No CHF: No Dementia: No Diabetes: No GI Disorders: No Disorders: No HTN: No Hypercholesterolemia: No Kidney Stones: No Liver Disease: No Psychiatric Problems: Yes (alcoholism) Suicide Attempt (Hx): No Seizures: No Thyroid Disease: No - Surgical History Abdominal Surgery: No Appendectomy: No Cardiac Surgery: No Cholecystectomy: No Lung Surgery: No Neurologic Surgery: No Orthopedic Surgery: No - Family Disease History Family Disease History: CA: Mother - Reproductive History Testicular Surgery: No - Immunization History TDAP Vaccination: Yes Immunization Up to Date: Yes - Psycho/Social/Smoking Cessation Hx Anxiety: No Suicidal Ideation: No Smoking Status: No Smoking History: Former smoker Have you smoked in the past 12 months: No Number of Cigarettes Smoked Daily: 2 Cigars Per Day: 0 'Breaking Loose' booklet given: 08/23/16 Hx Alcohol Use: Yes Drug/Substance Use Hx: No Substance Use Type: Alcohol Hx Substance Use Treatment: Yes ([facility]) <Lorri Kumar - Last Filed: 11/03/16 01:13> - Past Medical History Allergies/Adverse Reactions: Allergies Allergy/AdvReac Type Severity Reaction Status Date / Time Fish Containing Products Allergy Mild Verified 11/02/16 01:17 Home Medications: Ambulatory Orders NK [No Known Home Medication] 10/15/16 Review of Systems - Review of Systems Able to Perform ROS?: Yes Comments:: 11/02/16 01:30 CONSTITUTIONAL: Present: (+) alcohol intoxication Absent: fever, chills, diaphoresis, generalized weakness, malaise, loss of appetite HEENT: Absent: rhinorrhea, nasal congestion, throat pain, throat swelling, difficulty swallowing, mouth swelling, ear pain, eye pain, visual changes CARDIOVASCULAR: Absent: chest pain, syncope, palpitations, irregular heart rate, lightheadedness , peripheral edema RESPIRATORY: Absent: cough, shortness of breath, dyspnea with exertion, orthopnea, wheezing, stridor, hemoptysis GASTROINTESTINAL: Absent: abdominal pain, abdominal distension, nausea, vomiting, diarrhea, constipation, melena, hematochezia GENITOURINARY: Absent: dysuria, frequency, urgency, hesitancy, hematuria, flank pain, genital pain MUSCULOSKELETAL: Present: (+) low back pain Absent: arthralgia, joint swelling SKIN: Absent: rash, itching, pallor HEMATOLOGIC/IMMUNOLOGIC: Absent: easy bleeding, easy bruising, lymphadenopathy, frequent infections ENDOCRINE: Absent: unexplained weight gain, unexplained weight loss, heat intolerance, cold intolerance NEUROLOGIC: Absent: headache, focal weakness or paresthesias, dizziness, unsteady gait, seizure, mental status changes, bladder or bowel incontinence PSYCHIATRIC: Absent: anxiety, depression, suicidal or homicidal ideation, hallucinations. <Joelle Smalls - Last Filed: 11/02/16 01:29> *Physical Exam - Vital Signs Last Vital Signs Temp Pulse Resp BP Pulse Ox 96.6 F L 89 22 132/75 96 11/01/16 23:59 11/01/16 23:59 11/01/16 23:59 11/01/16 23:59 11/01/16 23:59 - Physical Exam Comments: 11/02/16 01:31 GENERAL: Well developed, well nourished. Awake and alert. No acute distress. HEENT: Normocephalic, atraumatic. PERRLA, EOMI. No conjunctival pallor. Sclera are non- icteric. Moist mucous membranes. Oropharynx is clear. NECK: Supple. Full ROM. No JVD. Carotid pulses 2+ and symmetric, without bruits. No thyromegaly. No lymphadenopathy. CARDIOVASCULAR: Regular rate and rhythm. No murmurs, rubs, or gallops. Distal pulses are 2+ and symmetric. PULMONARY: No evidence of respiratory distress. Lungs clear to auscultation bilaterally. No wheezing, rales or rhonchi. ABDOMINAL: Soft. Non-tender. Non-distended. No rebound or guarding. No organomegaly. Normoactive bowel sounds. MUSCULOSKELETAL (+) Low back pain. Normal range of motion at all joints. No bony deformities or tenderness. No CVA tenderness. EXTREMITIES: No cyanosis. No clubbing. No edema. No calf tenderness. SKIN: (+) Face was flushed. Warm and dry. Normal capillary refill. No rashes. No jaundice. NEUROLOGICAL: Alert, awake, appropriate. Cranial nerves 2-12 intact. No deficits to light touch and temperature in face, upper extremities and lower extremities. No motor deficits in the in face, upper extremities and lower extremities. Normoreflexic in the upper and lower extremities. Normal speech. Toes are down- going bilaterally. PSYCHIATRIC: Cooperative. Good eye contact. Appropriate mood and affect. <Joelle Smalls - Last Filed: 11/02/16 01:29> ED Treatment Course - LABORATORY CBC & Chemistry Diagram: 11/02/16 01:30 <Lorri Kumar - Last Filed: 11/03/16 01:13> Medical Decision Making - Medical Decision Making 11/03/16 01:11 Pt returns for alcohol intox. He complains of low back pain today and he is requesting detox. Last in detox 2 months ago. He agrees not to sign out. I will send a basic chem panel so that if he is hypokalemic they can teat him there with PO potassium. Pt was accepted by Dr. Alexander <Lorri Kumar - Last Filed: 11/03/16 01:13> *DC/Admit/Observation/Transfer - Attestations Scribe Attestion: 11/02/16 01:32 Documentation prepared by Joelle Smalls, acting as medical anthropology director for Lorri Kumar MD. <Joelle Smalls - Last Filed: 11/02/16 01:29> - Discharge Dispostion Admit: No <Lorri Kumar - Last Filed: 11/03/16 01:13> Diagnosis at time of Disposition: Alcohol abuse, Alcohol dependence, Back pain of thoracolumbar region - Discharge Dispostion Disposition: I.P. ALCOHOL/SUBS ABUSE REHAB Condition at time of disposition: Stable - Referrals Referrals: STAFF,NOT ON [Primary Care Provider] - - Patient Instructions Printed Discharge Instructions: DI for Low Back Pain
[2016-11-02 01:17] VITALS: BP 132/75; PULSE 89; TEMP 96.6; BMI 37.3
[2016-11-02] MEDS ORDERED: METHOCARBAMOL 500 MG TABLET PO ONE (01:27)
[2016-11-02 02:31] LABS: ALBUMIN 3.4 g/dl (3.4-5.0); ALK PHOS 132 U/L (45-117); ANION GAP 15 (8-16); BILIRUBIN,TOTAL 1.1 mg/dL (0.2-1.0); CALCIUM 7.9 mg/dL (8.5-10.1); CO2 34 mmol/L (21-32); COCKROFT - GAULT 184.85; CREATININE 0.7 mg/dL (0.7-1.3); GLUCOSE,RANDOM 93 mg/dL (74-106); SGOT/AST 139 U/L (15-37); SGPT/ALT 53 U/L (12-78); TOT PROT 6.4 g/dl (6.4-8.2)
== END 2016-11-02 02:05 | disposition other institution (70) ==
LOC: JER 23:41 → SUPCPDRO 23:41 → JER 11-02 02:05
DX: F10.220 Alcohol dependence with intoxication, uncomplicated (principal); M54.5 Low back pain; M54.6 Pain in thoracic spine; C45.9 Mesothelioma, unspecified
CPT/HCPCS: 36415; 80053; 80307; 99282-25

== ENCOUNTER 2016-11-02 02:16 | Inpatient (IN) | payer OTHER ==
--- NOTE | 2016-11-02 02:40 | HP ---
CIWA Score - CIWA Score Nausea/Vomitin Muscle Tremors: 3 Anxiety: 3 Agitation: 3 Paroxysmal Sweats: 1-Minimal Palms Moist Orientation: 0-Oriented Tacttile Disturbances: 2-Mild Itch/Numbness/Burn Auditory Disturbances: 2-Mild Harshness/Frighten Visual Disturbances: 2-Mild Sensitivity Headache: 2-Mild CIWA-Ar Total Score: 21 Admission ROS BHS - HPI Chief Complaint: i need help to stop drinking alcohol Allergies/Adverse Reactions: Allergies Allergy/AdvReac Type Severity Reaction Status Date / Time Fish Containing Products Allergy Mild Verified 11/02/16 01:17 History of Present Illness: this 61 years old male with alcohol dependence,withdrawal symptom,admitted several times in the past,last detox 08/29 not completed history of frequent visits to er, medically clear to return for detox from alcohol no significant period of sobriety Exam Limitations: No Limitations - Ebola screening Have you traveled outside of the country in the last 21 days: No Have you had contact with anyone from an Ebola affected area: No Have you been sick,other than usual withdrawal symptoms: No Do you have a fever: No - Review of Systems Constitutional: Loss of Appetite, Malaise, Weakness EENT: reports: Nose Congestion Respiratory: reports: No Symptoms reported Cardiac: reports: Palpitations GI: reports: Diarrhea, Nausea, Vomiting, Abdominal cramping : reports: No Symptoms Reported Musculoskeletal: reports: Back Pain, Muscle Pain Neuro: reports: Headache, Tremors Endocrine: reports: No Symptoms Reported Hematology: reports: No Symptoms Reported Psychiatric: reports: No Sypmtoms Reported Patient History - Patient Medical History Hx Anemia: No Hx Asthma: No Hx Chronic Obstructive Pulmonary Disease (COPD): No Hx Cancer: Yes (mesothelioma) Hx Cardiac Disorders: No Hx Congestive Heart Failure: No Hx Hypertension: Yes (no med) Hx Hypercholesterolemia: No Hx Pacemaker: No HX Cerebrovascular Accident: No Hx Seizures: No Hx Dementia: No Hx Diabetes: No Hx Gastrointestinal Disorders: No Hx Liver Disease: No Hx Genitourinary Disorders: No Hx Sexually Transmitted Disorders: No Hx Renal Disease (ESRD): No Hx Thyroid Disease: No Hx Human Immunodeficiency Virus (HIV): No Hx Hepatitis C: No Hx Depression: No Hx Suicide Attempt: No Hx Bipolar Disorder: No Hx Schizophrenia: No Other Medical History: no suicidal,no homicidal - Patient Surgical History Past Surgical History: No Hx Neurologic Surgery: No Hx Cataract Extraction: No Hx Cardiac Surgery: No Hx Lung Surgery: No Hx Breast Surgery: No Hx Breast Biopsy: No Hx Abdominal Surgery: No Hx Appendectomy: No Hx Cholecystectomy: No Hx Genitourinary Surgery: No Hx Section: No Hx Orthopedic Surgery: No Hx Hysterectomy: No Anesthesia Reaction: No - PPD History Previous Implant?: Yes Documented Results: Negative w/o proof Date: 09/23/15 Results: 0 mm PPD to be Administered?: Yes - Smoking Cessation Smoking history: Former smoker Have you smoked in the past 12 months: No Aproximately how many cigarettes per day: 2 Cigars Per Day: 0 Hx Chewing Tobacco Use: No Initiated information on smoking cessation: Yes 'Breaking Loose' booklet given: 11/02/16 - Substance & Tx. History Hx Alcohol Use: Yes Hx Substance Use: No Substance Use Type: Alcohol Hx Substance Use Treatment: Yes ([facility] 08/29 not completed) - Substances Abused Alcohol Route: Oral Frequency: Daily Amount used: 1pint of vodka Age of first use: 16 Date of Last Use: 11/01/16 Family Disease History - Family Disease History Family Disease History: CA: Mother (), Brother (Colon CA), Other: Grandparent (ALCOHOLISM), Father (ALCOHOL,) Admission Physical Exam S - Vital Signs Vital Signs: Vital Signs Temperature 96.2 F L 11/02/16 02:45 Pulse Rate 110 Respiratory Rate 20 Blood Pressure 110/70 O2 Sat by Pulse Oximetry (%) - Physical General Appearance: Yes: Moderate Distress, Intoxicated, Tremorous, Irritable, Sweating, Anxious HEENTM: Yes: Normal ENT Inspection, DOUGLAS, Pharynx Normal Respiratory: Yes: Lungs Clear, Normal Breath Sounds, No Respiratory Distress Neck: Yes: Within Normal Limits, Supple, Trachea in good position Breast: Yes: Within Normal Limits Cardiology: Yes: Tachycardia Abdominal: Yes: Within Normal Limits, Normal Bowel Sounds, Non Tender, Flat, Soft Genitourinary: Yes: Within Normal Limits Back: Yes: Muscle Spasm Musculoskeletal: Yes: Back pain, Muscle Pain Extremities: Yes: Tremors Neurological: 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 - Detox or Rehab [facility] Level of Care: Medically Managed (urine for drug screening at [facility] pending, k is 2.6,will give k dur) Detox Regimen/Protocol: Librium [facility] Breath Alcohol Content Breath Alcohol Content: 0.187 Vital Signs - Vital Signs Vital Signs Refused: No Temperature: 96.2 F Temperature Source: Oral Pulse Rate: 110 Respiratory Rate: 20 Blood Pressure: 110/70 BP Location: Left Arm - Height Height: 5 ft 10 in - Weight Weight: 249 lb Weight Measurement Method: Standing Scale Body Mass Index (BMI): 35.7
[2016-11-02 02:51] VITALS: BMI 35.7
[2016-11-02] MEDS ORDERED: hydrOXYzine PAMOATE 50 MG CAPSULE (FP) PO PRN (02:52)
[2016-11-02] MEDS ORDERED: MAGNESIUM CITRATE 300 ML BOTTLE PO PRN (02:52)
[2016-11-02] MEDS ORDERED: chlordiazePOXIDE HCL 25 MG CAPSULE PO ONE (02:52)
[2016-11-02] MEDS ORDERED: chlordiazePOXIDE HCL 25 MG CAPSULE PO PRN (02:52)
[2016-11-02] MEDS ORDERED: LOPERAMIDE HCL 2 MG CAPSULE PO PRN (02:52)
[2016-11-02] MEDS ORDERED: ACETAMINOPHEN 325 MG TABLET (FP) PO PRN (02:52)
[2016-11-02] MEDS ORDERED: MAGNESIUM HYDROX 2400MG/30ML ORAL SUSPENSION 30 ML CUP PO PRN (02:52)
[2016-11-02] MEDS ORDERED: guaiFENesin/D-METHORPHAN HB 10 ML UNIT-DOSE CUPS PO PRN (02:52)
[2016-11-02] MEDS ORDERED: diphenhydrAMINE HCL 50 MG CAPSULE PO PRN (02:52)
[2016-11-02] MEDS ORDERED: P-EPHED 60MG/TRIPROLIDI 2.5MG TABLET PO PRN (02:52)
[2016-11-02] MEDS ORDERED: MAG HYDROX/AL HYDROX/SIMETH 30 ML UNIT-DOSE CUP PO PRN (02:52)
[2016-11-02] MEDS ORDERED: IBUPROFEN 400 MG TABLET (FP) PO PRN (02:52)
[2016-11-02] MEDS ORDERED: MENTHOL/PHENOL 1 EACH UD MM PRN (02:52)
[2016-11-02] MEDS: POTASSIUM CHLORIDE TABS 20 MEQ TABLET.ER (FP) PO ONE ×2 (04:14→04:25)
[2016-11-02] MEDS: chlordiazePOXIDE HCL 25 MG CAPSULE PO SCH ×4 (07:21→22:27)
[2016-11-02 10:33] LABS: ALBUMIN 3.1 g/dl (3.4-5.0); ANION GAP 13 (8-16); CALCIUM 7.7 mg/dL (8.5-10.1); CO2 34 mmol/L (21-32); COCKROFT - GAULT 206.54; CREATININE 0.6 mg/dL (0.7-1.3); GLUCOSE,RANDOM 78 mg/dL (74-106); SGOT/AST 129 U/L (15-37); SGPT/ALT 48 U/L (12-78)
[2016-11-02 10:34] LABS: ALK PHOS 123 U/L (45-117); BILIRUBIN,TOTAL 1.2 mg/dL (0.2-1.0); TOT PROT 6.1 g/dl (6.4-8.2)
[2016-11-02] MEDS: PRENATAL VITAMINS W/ FOLIC ACID TABLET (FP) PO SCH (10:39)
[2016-11-02] MEDS: POTASSIUM CHLORIDE TABS 20 MEQ TABLET.ER (FP) PO SCH (10:41)
--- NOTE | 2016-11-02 11:05 | EKG ---
Test Reason : Blood Pressure : / mmHG Vent. Rate : 088 BPM Atrial Rate : 088 BPM P-R Int : 160 ms QRS Dur : 104 ms QT Int : 402 ms P-R-T Axes : 046 -43 066 degrees QTc Int : 486 ms NORMAL SINUS RHYTHM LEFT AXIS DEVIATION LEFT ANTERIOR FASCICULAR BLOCK SEPTAL INFARCT , AGE UNDETERMINED ABNORMAL ECG WHEN COMPARED WITH ECG OF 04-OCT-2016 05:03, SEPTAL INFARCT IS NOW PRESENT Confirmed by MD JESSY, JUNIOR ([id number]) on 11/02/2016 11:04:56 AM Referred By: Confirmed By:JUNIOR JIMÉNEZ MD
[2016-11-02 11:16] LABS: MCH 30.5 pg (25.7-33.7); MCHC 32.5 g/dl (32.0-35.9); MEAN PLT VOLUME 7.7 fl (7.5-11.1); PLATELET COUNT 158 K/MM3 (134-434); RDW 17.7 % (11.9-15.9); WHITE BLOOD COUNT 3.9 K/mm3 (4.0-10.0)
[2016-11-02] MEDS ORDERED: POTASSIUM CHLORIDE TABS 20 MEQ TABLET.ER (FP) PO ONE ×2 (12:07→18:00)
--- NOTE | 2016-11-02 17:01 | PN ---
S CIWA - CIWA Score Nausea/Vomitin Muscle Tremors: 3 Anxiety: 4-Mod. Anxious/Guarded Agitation: 3 Paroxysmal Sweats: No Perspiration Orientation: 0-Oriented Tacttile Disturbances: 1-Very Mild Itch/Numbness Auditory Disturbances: 0-None Visual Disturbances: 0-None Headache: 2-Mild CIWA-Ar Total Score: 16 BHS Progress Note (SOAP) Subjective: Sweating, anxious, irritable, nausea, interrupted sleep, tremor; patient refused K DUR despite being educated on effect of hypokalemia. He stated that he just wants to sleep and will take it when he gets up. Objective: 11/02/16 16:59 Last Vital Signs Temp Pulse Resp BP Pulse Ox 98 F 107 H 18 154/101 11/02/16 13:49 11/02/16 13:49 11/02/16 13:49 11/02/16 13:49 Laboratory Tests 11/02/16 11/02/16 11/02/16 07:40 07:40 07:40 WBC 3.9 L D RBC 3.55 L Hgb 10.8 L Hct 33.4 L MCV 94.0 MCHC 32.5 RDW 17.7 H Plt Count 158 D MPV 7.7 Sodium 142 Potassium 2.4 L* Chloride 95 L Carbon Dioxide 34 H Anion Gap 13 BUN 10 Creatinine 0.6 L Creat Clearance w eGFR > 60 Random Glucose 78 Calcium 7.7 L Total Bilirubin 1.2 H AST 129 H ALT 48 Alkaline Phosphatase 123 H Total Protein 6.1 L Albumin 3.1 L RPR Titer Nonreactive Labs noted: K 2.4 Assessment: 11/02/16 16:59 Withdrawal symptoms Noted with hypokalemia Plan: Continue detox Hypokalemia: encouraged to take potassium supplement; ordered for K DUR 40 mEq x 2 doses today and resume daily dose in AM, repeat BMP in AM
[2016-11-02] MEDS: THIAMINE HCL 100 MG TABLET (FP) PO SCH (22:27)
[2016-11-03] MEDS: chlordiazePOXIDE HCL 25 MG CAPSULE PO SCH ×4 (05:43→22:38)
[2016-11-03 10:05] LABS: COCKROFT - GAULT 206.54; CREATININE 0.6 mg/dL (0.7-1.3)
[2016-11-03] MEDS: POTASSIUM CHLORIDE TABS 20 MEQ TABLET.ER (FP) PO SCH (10:32)
[2016-11-03] MEDS: PRENATAL VITAMINS W/ FOLIC ACID TABLET (FP) PO SCH (10:32)
--- NOTE | 2016-11-03 13:35 | PN ---
[facility] CIWA - CIWA Score Nausea/Vomitin-No Nausea/No Vomiting Muscle Tremors: 4-Moderate,w/Arms Extend Anxiety: 4-Mod. Anxious/Guarded Agitation: 3 Paroxysmal Sweats: 3 Orientation: 0-Oriented Tacttile Disturbances: 2-Mild Itch/Numbness/Burn Auditory Disturbances: 2-Mild Harshness/Frighten Visual Disturbances: 0-None Headache: 3-Moderate CIWA-Ar Total Score: 21 BHS Progress Note (SOAP) Subjective: Tremors, Interrupted Sleep, H/A, Sweating, Body Aches. Objective: PT. A & O X 3, OBSERVED AMBULATING ON UNIT. PT. DENIES CHEST PAIN AND DIZZINESS. 11/03/16 13:33 Vital Signs Temperature 97.4 F L 11/03/16 09:57 Pulse Rate 101 H 11/03/16 09:57 Respiratory Rate 20 11/03/16 09:57 Blood Pressure 146/95 11/03/16 09:57 O2 Sat by Pulse Oximetry (%) Laboratory Tests 11/02/16 11/02/16 11/02/16 07:40 07:40 07:40 WBC 3.9 L D RBC 3.55 L Hgb 10.8 L Hct 33.4 L MCV 94.0 MCHC 32.5 RDW 17.7 H Plt Count 158 D MPV 7.7 Sodium 142 Potassium 2.4 L* Chloride 95 L Carbon Dioxide 34 H Anion Gap 13 BUN 10 Creatinine 0.6 L Creat Clearance w eGFR > 60 Random Glucose 78 Calcium 7.7 L Total Bilirubin 1.2 H AST 129 H ALT 48 Alkaline Phosphatase 123 H Total Protein 6.1 L Albumin 3.1 L RPR Titer Nonreactive 11/03/16 07:30 WBC RBC Hgb Hct MCV MCHC RDW Plt Count MPV Sodium 142 Potassium 2.5 L* Chloride 96 L Carbon Dioxide 36 H Anion Gap 10 BUN 8 Creatinine 0.6 L Creat Clearance w eGFR Random Glucose 94 D Calcium 8.0 L Total Bilirubin AST ALT Alkaline Phosphatase Total Protein Albumin RPR Titer LABS NOTED. RECEIVED REPORT FROM Elena MATOS RN THAT PATIENT HAS BEEN REFUSING PRESCRIPTION K SUPPLEMENTS. 11/03/16 14:46 11/03/16 14:56 Assessment: 11/03/16 13:34 WITHDRAWAL SYMPTOMS. Plan: CONTINUE DETOX. CLONIDINE, 01. MG FOR ELEVATED BP AND FOR DETOX SYMPTOMS. CONTINUE TO MONITOR BP. REPEAT CBC TOMORROW AM FOR LOW ADMISSION WBC, HGB, HCT, AND RBC. REMINDED PATIENT OF IMPORTANCE OF TAKING PRESCRIBED K AND OF TAKING IT AT TIMES IN WHICH HE IS PRESCRIBED TO DO SO. ADVISED PATIENT TO FOLLOW-UP WITH SITE SUPERVISING TECHNICAL OPERATOR AFTER DICHARGE FROM DETOX FOR GENERAL MEDICAL ASSESSMENT AND FOR ABNOMAL ADMISSION K AND LIVER ENZYME LEVELS. PATIENT VERBALIZED UNDERSTANDING OF INSTRUCTIONS.
[2016-11-03] MEDS ORDERED: cloNIDine HCL 0.1 MG TABLET PO ONE (15:15)
[2016-11-03] MEDS: THIAMINE HCL 100 MG TABLET (FP) PO SCH (22:39)
[2016-11-04] MEDS ORDERED: ALBUTEROL SO4 2.5/IPRATROPIUM 0.5 INH SOL 3 ML VIAL.NEB. NEB PRN (05:25)
[2016-11-04] MEDS: chlordiazePOXIDE 5 MG CAPSULE PO SCH ×4 (05:57→22:44)
[2016-11-04] MEDS: CYCLOBENZAPRINE HCL 10 MG TABLET (FP) PO PRN (05:57)
[2016-11-04 10:03] LABS: BASOPHIL 0.6 % (0-2.0); EOSINOPHIL 4.7 % (0-4.5); MCH 30.9 pg (25.7-33.7); MCHC 32.9 g/dl (32.0-35.9); MEAN CELL VOLUME 93.7 fl (80-96); NEUTROPHILS 56.2 % (42.8-82.8); PLATELET COUNT 208 K/MM3 (134-434); RDW 17.9 % (11.9-15.9); WHITE BLOOD COUNT 3.8 K/mm3 (4.0-10.0)
[2016-11-04] MEDS: PRENATAL VITAMINS W/ FOLIC ACID TABLET (FP) PO SCH (10:33)
[2016-11-04] MEDS: POTASSIUM CHLORIDE TABS 20 MEQ TABLET.ER (FP) PO SCH (10:33)
--- NOTE | 2016-11-04 15:35 | PN ---
[facility] Progress Note (SOAP) Subjective: Sweating,interrupted sleep,restless. Objective: 11/04/16 15:34 Vital Signs - 8 hr 11/04/16 11/04/16 09:38 13:39 Temperature 99.1 F 98.1 F Pulse Rate 106 H 108 H Respiratory 18 20 Rate Blood Pressure 124/84 139/91 Laboratory Last Values WBC 3.8 K/mm3 (4.0-10.0) L 11/04/16 07:00 RBC 3.58 M/mm3 (4.00-5.60) L 11/04/16 07:00 Hgb 11.1 GM/dL (11.7-16.9) L 11/04/16 07:00 Hct 33.6 % (35.4-49) L 11/04/16 07:00 MCV 93.7 fl (80-96) 11/04/16 07:00 MCHC 32.9 g/dl (32.0-35.9) 11/04/16 07:00 RDW 17.9 % (11.9-15.9) H 11/04/16 07:00 Plt Count 208 K/MM3 (134-434) D 11/04/16 07:00 MPV 8.0 fl (7.5-11.1) 11/04/16 07:00 Neutrophils % 56.2 % (42.8-82.8) 11/04/16 07:00 Lymphocytes % 27.0 % (8-40) D 11/04/16 07:00 Monocytes % 11.5 % (3.8-10.2) H 11/04/16 07:00 Eosinophils % 4.7 % (0-4.5) H 11/04/16 07:00 Basophils % 0.6 % (0-2.0) 11/04/16 07:00 Sodium 142 mmol/L (136-145) 11/03/16 07:30 Potassium 2.5 mmol/L (3.5-5.1) L* 11/03/16 07:30 Chloride 96 mmol/L (98-107) L 11/03/16 07:30 Carbon Dioxide 36 mmol/L (21-32) H 11/03/16 07:30 Anion Gap 10 (8-16) 11/03/16 07:30 BUN 8 mg/dL (7-18) 11/03/16 07:30 Creatinine 0.6 mg/dL (0.7-1.3) L 11/03/16 07:30 Creat Clearance w eGFR > 60 (>60) 11/02/16 07:40 Random Glucose 94 mg/dL (74-106) D 11/03/16 07:30 Calcium 8.0 mg/dL (8.5-10.1) L 11/03/16 07:30 Total Bilirubin 1.2 mg/dL (0.2-1.0) H 11/02/16 07:40 AST 129 U/L (15-37) H 11/02/16 07:40 ALT 48 U/L (12-78) 11/02/16 07:40 Alkaline Phosphatase 123 U/L (45-117) H 11/02/16 07:40 Total Protein 6.1 g/dl (6.4-8.2) L 11/02/16 07:40 Albumin 3.1 g/dl (3.4-5.0) L 11/02/16 07:40 RPR Titer Nonreactive (NONREACTIVE) 11/02/16 07:40 labs noted Assessment: 11/04/16 15:35 Withdrawal sx. Plan: Continue detox
[2016-11-04] MEDS: LISINOPRIL 10 MG TABLET (FP) PO SCH (15:53)
[2016-11-04] MEDS ORDERED: LISINOPRIL 10 MG TABLET (FP) PO ONE (21:57)
[2016-11-04 22:03] VITALS: TEMP 98.5
[2016-11-04] MEDS: THIAMINE HCL 100 MG TABLET (FP) PO SCH (22:44)
[2016-11-05] MEDS: chlordiazePOXIDE HCL 10 MG CAPSULE PO SCH ×2 (05:36→10:43)
[2016-11-05] MEDS: CYCLOBENZAPRINE HCL 10 MG TABLET (FP) PO PRN (05:36)
[2016-11-05 06:35] VITALS: BP 142/94; PULSE 107
[2016-11-05] MEDS: PRENATAL VITAMINS W/ FOLIC ACID TABLET (FP) PO SCH (10:43)
[2016-11-05] MEDS: POTASSIUM CHLORIDE TABS 20 MEQ TABLET.ER (FP) PO SCH (10:43)
[2016-11-05] MEDS: LISINOPRIL 10 MG TABLET (FP) PO SCH (10:44)
--- NOTE | 2016-11-05 13:29 | PN ---
[facility] Progress Note (SOAP) Subjective: PT CONTINUES TO REFUSE KDUR AND OTHER MEDS. PT IS VERY IRRITABLE AND ANGRY REFUSING TO BE ENCOURAGED FOR HIS CARE. Objective: 11/05/16 13:29 Vital Signs Temperature 98.5 F 11/05/16 06:34 Pulse Rate 107 H 11/05/16 06:34 Respiratory Rate 20 11/05/16 06:34 Blood Pressure 142/94 11/05/16 06:34 O2 Sat by Pulse Oximetry (%) Laboratory Last Values WBC 3.8 K/mm3 (4.0-10.0) L 11/04/16 07:00 RBC 3.58 M/mm3 (4.00-5.60) L 11/04/16 07:00 Hgb 11.1 GM/dL (11.7-16.9) L 11/04/16 07:00 Hct 33.6 % (35.4-49) L 11/04/16 07:00 MCV 93.7 fl (80-96) 11/04/16 07:00 MCHC 32.9 g/dl (32.0-35.9) 11/04/16 07:00 RDW 17.9 % (11.9-15.9) H 11/04/16 07:00 Plt Count 208 K/MM3 (134-434) D 11/04/16 07:00 MPV 8.0 fl (7.5-11.1) 11/04/16 07:00 Neutrophils % 56.2 % (42.8-82.8) 11/04/16 07:00 Lymphocytes % 27.0 % (8-40) D 11/04/16 07:00 Monocytes % 11.5 % (3.8-10.2) H 11/04/16 07:00 Eosinophils % 4.7 % (0-4.5) H 11/04/16 07:00 Basophils % 0.6 % (0-2.0) 11/04/16 07:00 Sodium 142 mmol/L (136-145) 11/03/16 07:30 Potassium 2.5 mmol/L (3.5-5.1) L* 11/03/16 07:30 Chloride 96 mmol/L (98-107) L 11/03/16 07:30 Carbon Dioxide 36 mmol/L (21-32) H 11/03/16 07:30 Anion Gap 10 (8-16) 11/03/16 07:30 BUN 8 mg/dL (7-18) 11/03/16 07:30 Creatinine 0.6 mg/dL (0.7-1.3) L 11/03/16 07:30 Creat Clearance w eGFR > 60 (>60) 11/02/16 07:40 Random Glucose 94 mg/dL (74-106) D 11/03/16 07:30 Calcium 8.0 mg/dL (8.5-10.1) L 11/03/16 07:30 Total Bilirubin 1.2 mg/dL (0.2-1.0) H 11/02/16 07:40 AST 129 U/L (15-37) H 11/02/16 07:40 ALT 48 U/L (12-78) 11/02/16 07:40 Alkaline Phosphatase 123 U/L (45-117) H 11/02/16 07:40 Total Protein 6.1 g/dl (6.4-8.2) L 11/02/16 07:40 Albumin 3.1 g/dl (3.4-5.0) L 11/02/16 07:40 RPR Titer Nonreactive (NONREACTIVE) 11/02/16 07:40 11/05/16 13:29 Laboratory Tests 11/02/16 11/02/16 11/02/16 07:40 07:40 07:40 WBC 3.9 L D RBC 3.55 L Hgb 10.8 L Hct 33.4 L MCV 94.0 MCHC 32.5 RDW 17.7 H Plt Count 158 D MPV 7.7 Neutrophils % Lymphocytes % Monocytes % Eosinophils % Basophils % Sodium 142 Potassium 2.4 L* Chloride 95 L Carbon Dioxide 34 H Anion Gap 13 BUN 10 Creatinine 0.6 L Creat Clearance w eGFR > 60 Random Glucose 78 Calcium 7.7 L Total Bilirubin 1.2 H AST 129 H ALT 48 Alkaline Phosphatase 123 H Total Protein 6.1 L Albumin 3.1 L RPR Titer Nonreactive 11/03/16 11/04/16 07:30 07:00 WBC 3.8 L RBC 3.58 L Hgb 11.1 L Hct 33.6 L MCV 93.7 MCHC 32.9 RDW 17.9 H Plt Count 208 D MPV 8.0 Neutrophils % 56.2 Lymphocytes % 27.0 D Monocytes % 11.5 H Eosinophils % 4.7 H Basophils % 0.6 Sodium 142 Potassium 2.5 L* Chloride 96 L Carbon Dioxide 36 H Anion Gap 10 BUN 8 Creatinine 0.6 L Creat Clearance w eGFR Random Glucose 94 D Calcium 8.0 L Total Bilirubin AST ALT Alkaline Phosphatase Total Protein Albumin RPR Titer Assessment: 11/05/16 13:29 WITHDRAWAL SX Plan: MONITOR PT EVALUATE FOR FURTHER TREATMENT IF NEEDED.
--- NOTE | 2016-11-05 14:55 | DS ---
[facility] Detox Discharge Summary Admission Date: 11/02/16 Discharge Date: 11/05/16 - History Present History: Alcohol Dependence Pertinent Past History: GERD HTN - Physical Exam Results Vital Signs: Vital Signs Temperature 98.5 F 11/05/16 06:34 Pulse Rate 107 H 11/05/16 06:34 Respiratory Rate 20 11/05/16 06:34 Blood Pressure 142/94 11/05/16 06:34 O2 Sat by Pulse Oximetry (%) Pertinent Admission Physical Exam Findings: Withdrawal sx. Laboratory Last Values WBC 3.8 K/mm3 (4.0-10.0) L 11/04/16 07:00 RBC 3.58 M/mm3 (4.00-5.60) L 11/04/16 07:00 Hgb 11.1 GM/dL (11.7-16.9) L 11/04/16 07:00 Hct 33.6 % (35.4-49) L 11/04/16 07:00 MCV 93.7 fl (80-96) 11/04/16 07:00 MCHC 32.9 g/dl (32.0-35.9) 11/04/16 07:00 RDW 17.9 % (11.9-15.9) H 11/04/16 07:00 Plt Count 208 K/MM3 (134-434) D 11/04/16 07:00 MPV 8.0 fl (7.5-11.1) 11/04/16 07:00 Neutrophils % 56.2 % (42.8-82.8) 11/04/16 07:00 Lymphocytes % 27.0 % (8-40) D 11/04/16 07:00 Monocytes % 11.5 % (3.8-10.2) H 11/04/16 07:00 Eosinophils % 4.7 % (0-4.5) H 11/04/16 07:00 Basophils % 0.6 % (0-2.0) 11/04/16 07:00 Sodium 142 mmol/L (136-145) 11/03/16 07:30 Potassium 2.5 mmol/L (3.5-5.1) L* 11/03/16 07:30 Chloride 96 mmol/L (98-107) L 11/03/16 07:30 Carbon Dioxide 36 mmol/L (21-32) H 11/03/16 07:30 Anion Gap 10 (8-16) 11/03/16 07:30 BUN 8 mg/dL (7-18) 11/03/16 07:30 Creatinine 0.6 mg/dL (0.7-1.3) L 11/03/16 07:30 Creat Clearance w eGFR > 60 (>60) 11/02/16 07:40 Random Glucose 94 mg/dL (74-106) D 11/03/16 07:30 Calcium 8.0 mg/dL (8.5-10.1) L 11/03/16 07:30 Total Bilirubin 1.2 mg/dL (0.2-1.0) H 11/02/16 07:40 AST 129 U/L (15-37) H 11/02/16 07:40 ALT 48 U/L (12-78) 11/02/16 07:40 Alkaline Phosphatase 123 U/L (45-117) H 11/02/16 07:40 Total Protein 6.1 g/dl (6.4-8.2) L 11/02/16 07:40 Albumin 3.1 g/dl (3.4-5.0) L 11/02/16 07:40 RPR Titer Nonreactive (NONREACTIVE) 11/02/16 07:40 labs noted,pt. refused to take potassium even though we told him that he could of dysrrhythmia, pt says "I don't care" - Treatment Hospital Course: Detox Protocol Followed Patient has Accepted a Rehab Referral [facility]: [facility].Pt. refused in-pt. rehab. - Medication Discharge Medications: Ambulatory Orders NK [No Known Home Medication] 10/15/16 - Diagnosis (1) Alcohol dependence with uncomplicated intoxication Current Visit: Yes Status: Acute (2) HTN (hypertension) Current Visit: Yes Status: Chronic Qualifiers: Hypertension type: essential hypertension Qualified Code(s): I10 - Essential (primary) hypertension (3) Hypokalemia Current Visit: Yes Status: Acute (4) GERD (gastroesophageal reflux disease) Current Visit: Yes Status: Chronic Qualifiers: Esophagitis presence: without esophagitis Qualified Code(s): K21.9 - Gastro-esophageal reflux disease without esophagitis - AMA Did Patient Leave Against Medical Advice: No
== END 2016-11-05 13:45 | disposition home or self-care (01) | DRG 775 ==
LOC: YASAS 02:16 → Y3N 02:19
PROVIDERS: ADMIT Internal Medicine; ATTEND Internal Medicine
PROC: HZ2ZZZZ Detoxification Services for Substance Abuse Treatment (ICD-10-PCS; principal; 2016-11-02)
DX: F10.230 Alcohol dependence with withdrawal, uncomplicated (principal); I10 Essential (primary) hypertension; E87.6 Hypokalemia; K21.9 Gastro-esophageal reflux disease without esophagitis; R00.0 Tachycardia, unspecified; C45.9 Mesothelioma, unspecified; Z87.891 Personal history of nicotine dependence
CPT/HCPCS: 36415; 80048; 80053; 85025; 85027; 86593; 93005; 93010; 94640

== ENCOUNTER 2016-11-08 01:23 | Emergency (ER) | payer OTHER ==
--- NOTE | 2016-11-08 02:57 | PDOC ---
History of Present Illness - General History Source: Patient Exam Limitations: Intoxication - History of Present Illness Initial Comments: 11/08/16 06:17 The patient is a 61 year old male with a significant past medical history of alcohol dependence, polysubstance abuse, GERD, HTN who presents to the ED s/p alcohol intoxication. Patient is well known in the ED. The patient comes into the ED intoxicated s/p recently being admitted to detox. This HPI is limited secondary to the patient being intoxicated. <Yuridia Bowers - Last Filed: 11/08/16 06:16> <Lorri Kumar - Last Filed: 11/08/16 07:14> - General Stated Complaint: INTOX Time Seen by Provider: 11/08/16 01:44 Past History <Yuridia Bowers - Last Filed: 11/08/16 06:16> - Past Medical History Anemia: No Asthma: No Cancer: Yes (mesothelioma) Cardiac Disorders: No CVA: No COPD: No CHF: No Dementia: No Diabetes: No GI Disorders: No Disorders: No HTN: Yes (no med) Hypercholesterolemia: No Kidney Stones: No Liver Disease: No Psychiatric Problems: Yes (alcoholism) Suicide Attempt (Hx): No Seizures: No Thyroid Disease: No - Surgical History Abdominal Surgery: No Appendectomy: No Cardiac Surgery: No Cholecystectomy: No Lung Surgery: No Neurologic Surgery: No Orthopedic Surgery: No - Family Disease History Family Disease History: CA: Mother - Reproductive History Testicular Surgery: No - Immunization History TDAP Vaccination: Yes Immunization Up to Date: Yes - Psycho/Social/Smoking Cessation Hx Anxiety: No Suicidal Ideation: No Smoking Status: No Smoking History: Former smoker Have you smoked in the past 12 months: No Number of Cigarettes Smoked Daily: 2 Cigars Per Day: 0 'Breaking Loose' booklet given: 11/02/16 Hx Alcohol Use: Yes Drug/Substance Use Hx: No Substance Use Type: Alcohol Hx Substance Use Treatment: Yes ([facility] 08/29 not completed) <Lorri Kumar - Last Filed: 11/08/16 07:14> - Past Medical History Allergies/Adverse Reactions: Allergies Allergy/AdvReac Type Severity Reaction Status Date / Time Fish Containing Products Allergy Mild Verified 11/08/16 03:18 Home Medications: Ambulatory Orders NK [No Known Home Medication] 10/15/16 Review of Systems - Review of Systems Able to Perform ROS?: No Comments:: 11/08/16 06:17 Unable to obtain ROS secondary to patient being intoxicated. <Yuridia Bowers - Last Filed: 11/08/16 06:16> *Physical Exam - Vital Signs Last Vital Signs Temp Pulse Resp BP Pulse Ox 98.2 F 95 H 22 151/75 96 11/08/16 03:16 11/08/16 03:16 11/08/16 03:16 11/08/16 03:16 11/08/16 03:16 - Physical Exam Comments: 11/08/16 06:17 GENERAL: Well developed, well nourished. Awake and alert. No acute distress. HEENT: Normocephalic, atraumatic. PERRLA, EOMI. No conjunctival pallor. Sclera are non- icteric. Moist mucous membranes. Oropharynx is clear. NECK: Supple. Full ROM. No JVD. Carotid pulses 2+ and symmetric, without bruits. No thyromegaly. NCo lymphadenopathy. CARDIOVASCULAR: Regular rate and rhythm. No murmurs, rubs, or gallops. Distal pulses are 2+ and symmetric. PULMONARY: No evidence of respiratory distress. Lungs clear to auscultation bilaterally. No wheezing, rales or rhonchi. ABDOMINAL: Soft. Non-tender. Non-distended. No rebound or guarding. No organomegaly. Normoactive bowel sounds. MUSCULOSKELETAL Normal range of motion at all joints. No bony deformities or tenderness. No CVA tenderness. EXTREMITIES: No cyanosis. No clubbing. No edema. No calf tenderness. SKIN: Warm and dry. Normal capillary refill. No rashes. No jaundice. NEUROLOGICAL: Alert, awake, appropriate. Cranial nerves 2-12 intact. No deficits to light touch and temperature in face, upper extremities and lower extremities. No motor deficits in the in face, upper extremities and lower extremities. Normoreflexic in the upper and lower extremities. Normal speech. Toes are down- going bilaterally. Gait is normal without ataxia. PSYCHIATRIC: Cooperative. Good eye contact. Appropriate mood and affect. <Yuridia Bowers - Last Filed: 11/08/16 06:16> Medical Decision Making - Medical Decision Making 11/08/16 07:13 Pt comes in drunk sleeping all night. Exam of heart and lungls normal. Abd soft and Nt ND. Ext no swelling. <Lorri Kumar - Last Filed: 11/08/16 07:14> *DC/Admit/Observation/Transfer - Attestations Scribe Attestion: 11/08/16 06:17 Documentation prepared by Yuridia Bowers, acting as medical administrative specialist for Lorri Kumar MD <Yuridia Bowers - Last Filed: 11/08/16 06:16> <Lorri Kumar - Last Filed: 11/08/16 07:14> Diagnosis at time of Disposition: Alcohol abuse - Discharge Dispostion Condition at time of disposition: Fair - Referrals Referrals: STAFF,NOT ON [Primary Care Provider] -
[2016-11-08 03:58] VITALS: TEMP 98.2; BMI 33.0
--- NOTE | 2016-11-08 08:45 | PDOC ---
*Physical Exam - Vital Signs Last Vital Signs Temp Pulse Resp BP Pulse Ox 98.2 F 95 H 22 151/75 96 11/08/16 03:16 11/08/16 03:16 11/08/16 03:16 11/08/16 03:16 11/08/16 03:16 Medical Decision Making - Medical Decision Making 11/08/16 08:41 Pt received at 7 am signout. Well known to this ED, presents with EtOH intoxication. Currently resting comfortably. Will cont to monitor. *DC/Admit/Observation/Transfer Diagnosis at time of Disposition: Alcohol abuse - Discharge Dispostion Disposition: HOME Condition at time of disposition: Stable Admit: No - Referrals Referrals: STAFF,NOT ON [Primary Care Provider] - - Patient Instructions Printed Discharge Instructions: DI for Alcohol Abuse - Post Discharge Activity
[2016-11-08 11:36] VITALS: BP 153/77; PULSE 77
== END 2016-11-08 11:39 | disposition home or self-care (01) ==
LOC: SUPCPDRO 01:23 → JER 01:23
DX: F10.220 Alcohol dependence with intoxication, uncomplicated (principal); F19.10 Other psychoactive substance abuse, uncomplicated; I10 Essential (primary) hypertension; K21.9 Gastro-esophageal reflux disease without esophagitis; C45.9 Mesothelioma, unspecified
CPT/HCPCS: 99283-25

== ENCOUNTER 2016-11-09 00:53 | Emergency (ER) | payer OTHER ==
--- NOTE | 2016-11-09 01:21 | PDOC ---
History of Present Illness - General Chief Complaint: Alcohol intoxication Stated Complaint: INTOX Time Seen by Provider: 11/09/16 01:01 History Source: Patient Exam Limitations: No Limitations - History of Present Illness Initial Comments: 11/09/16 01:21 History of Present Illness: 61-year-old male with PMH of mesothelioma with an extension hx of EtOH abuse with multiple ER visits and admissions due to EtOH abuse is biba for public intoxication. Patient at this time is noted to have AOB. Patient is not slurring his speech at this time but is unstable in gait and is intoxicated. Patient is A&Ox3 to deny f/c,n/v/d, constipation, lightheadedness, dizziness, guerra, blurry vision, visual disturbance, chest pain, sob, neck/back pain, abd pain , urinary symptoms; urgency/frequency/hesitancy, hematuria. Patient denies any sick contacts, travel outside the [place] or contact with any sick individuals who have been outside the [place]. Past Medical History: ETOH abuse, Mesothelioma Family History: Mother with cancer Social History: EtOH abuse Surgical history: Denies Allergies: No known drug allergies ROS: CONSTITUTIONAL: Absent: fever, chills, diaphoresis, generalized weakness, malaise, loss of appetite HEENT: Absent: rhinorrhea, nasal congestion, throat pain, throat swelling, difficulty swallowing, mouth swelling, ear pain, eye pain, visual Changes CARDIOVASCULAR: Absent: chest pain, loss of consciousness, palpitations, irregular heart rate, peripheral edema RESPIRATORY: Absent: cough, shortness of breath, dyspnea with exertion, orthopnea, wheezing, stridor, hemoptysis GASTROINTESTINAL: Absent: abdominal pain, abdominal distension, nausea, vomiting, diarrhea, constipation, melena, hematochezia GENITOURINARY: Absent: dysuria, frequency, urgency, hesitancy, hematuria, flank pain, genital pain MUSCULOSKELETAL: Absent: myalgia, arthralgia, joint swelling SKIN: Absent: rash, itching, pallor HEMATOLOGIC/IMMUNOLOGIC: Absent: easy bleeding, easy bruising, lymphadenopathy, frequent infections ENDOCRINE: Absent: unexplained weight gain, unexplained weight loss, heat intolerance, cold intolerance NEUROLOGIC: Absent: headache, focal weakness or paresthesias, dizziness, unsteady gait, seizure, mental status changes, bladder or bowel incontinence PSYCHIATRIC: Absent:+EtOH abuse, No depression or anxiety.anxiety, depression, suicidal or homicidal ideation, hallucinations. GENERAL: Well developed, well nourished. Awake and alert. No acute distress. HEENT: Normocephalic, atraumatic. PERRLA, EOMI. No conjunctival pallor. Sclera are non- icteric. Moist mucous membranes. Oropharynx is clear. NECK: Supple. Full ROM. No JVD. Carotid pulses 2+ and symmetric, without bruits. No thyromegaly. No lymphadenopathy. CARDIOVASCULAR: Regular rate and rhythm. No murmurs, rubs, or gallops. Distal pulses are 2+ and symmetric. PULMONARY: No evidence of respiratory distress. Lungs clear to auscultation bilaterally. No wheezing, rales or rhonchi. ABDOMINAL: Soft. Non-tender. Non-distended. No rebound or guarding. No organomegaly. Normoactive bowel sounds. MUSCULOSKELETAL Normal range of motion at all joints. No bony deformities or tenderness. No CVA tenderness. EXTREMITIES: No cyanosis. No clubbing. No edema. No calf tenderness. SKIN: Warm and dry. Normal capillary refill. No rashes. No jaundice. NEUROLOGICAL: Alert, awake, appropriate. Cranial nerves 2-12 intact. No deficits to light touch and temperature in face, upper extremities and lower extremities. No motor deficits in the in face, upper extremities and lower extremities. Normoreflexic in the upper and lower extremities. Normal speech. Toes are down- going bilaterally. Gait is normal without ataxia. PSYCHIATRIC: Cooperative. Good eye contact. Appropriate mood and affect. Medical Decision Making Patient reassessment: Patient has been noted to be walking and emergency department without difficulty or ataxic gait. Patient is able to communicate clearly and has straight clear mentation. I will discharge this patient to follow-up with outpatient PCP. Patient does not indicate desire at this time for detox. I discussed the physical exam findings, ancillary test results and final diagnoses with the patient. I answered all of the patient's questions. The patient was satisfied with the care received and felt comfortable with the discharge plan and treatment plan. The patient will call their primary care physician within 24 hours to arrange follow-up and will return to the Emergency Department with any new, persistent or worsening symptoms. Printed Discharge Instructions: DI for Alcohol Abuse Additional Instructions: Please follow-up with the included referral for PCP. Return to emergency room if shortness of breath, wheezing, fever greater than 101, chest pain, or fainting occurs. Timing/Duration: 24 hours Past History - Past Medical History Allergies/Adverse Reactions: Allergies Allergy/AdvReac Type Severity Reaction Status Date / Time Fish Containing Products Allergy Mild Verified 11/09/16 01:20 Home Medications: Ambulatory Orders NK [No Known Home Medication] 10/15/16 Anemia: No Asthma: No Cancer: Yes (mesothelioma) Cardiac Disorders: No CVA: No COPD: No CHF: No Dementia: No Diabetes: No GI Disorders: No Disorders: No HTN: Yes (no med) Hypercholesterolemia: No Kidney Stones: No Liver Disease: No Psychiatric Problems: Yes (alcoholism) Suicide Attempt (Hx): No Seizures: No Thyroid Disease: No - Surgical History Abdominal Surgery: No Appendectomy: No Cardiac Surgery: No Cholecystectomy: No Lung Surgery: No Neurologic Surgery: No Orthopedic Surgery: No - Family Disease History Family Disease History: CA: Mother - Reproductive History Testicular Surgery: No - Immunization History TDAP Vaccination: Yes Immunization Up to Date: Yes - Psycho/Social/Smoking Cessation Hx Anxiety: No Suicidal Ideation: No Smoking Status: No Smoking History: Former smoker Have you smoked in the past 12 months: No Number of Cigarettes Smoked Daily: 2 Cigars Per Day: 0 'Breaking Loose' booklet given: 11/02/16 Hx Alcohol Use: Yes Drug/Substance Use Hx: No Substance Use Type: Alcohol Hx Substance Use Treatment: Yes ([facility] 08/29 not completed) *DC/Admit/Observation/Transfer Diagnosis at time of Disposition: Alcohol abuse, Alcohol intoxication - Discharge Dispostion Disposition: HOME Condition at time of disposition: Stable Admit: No - Patient Instructions Printed Discharge Instructions: DI for Alcohol Abuse Additional Instructions: Return to the ER for any concerns, chest pain, shortness of breath
[2016-11-09 01:22] VITALS: BMI 37.3
[2016-11-09 06:55] VITALS: BP 100/59; PULSE 83; TEMP 98.1
== END 2016-11-09 06:50 | disposition home or self-care (01) ==
LOC: JER 00:53
DX: F10.220 Alcohol dependence with intoxication, uncomplicated (principal); I10 Essential (primary) hypertension; C45.9 Mesothelioma, unspecified
CPT/HCPCS: 99281-25

== ENCOUNTER 2016-11-09 18:21 | Emergency (ER) | payer OTHER ==
[2016-11-09 19:06] VITALS: BMI 33.0
--- NOTE | 2016-11-10 05:06 | PDOC ---
History of Present Illness - General History Source: Patient Exam Limitations: No Limitations - History of Present Illness Initial Comments: 11/10/16 06:27 The patient is a 61 year old male with a significant past medical history of alcohol dependence, polysubstance abuse, GERD, HTN who presents to the ED s/p alcohol intoxication. Patient is well known in the ED. The patient comes into the ED intoxicated. This HPI is limited secondary to the patient being intoxicated. <Yuridia Bowers - Last Filed: 11/10/16 06:26> <Lorri Kumar - Last Filed: 11/10/16 06:52> - General Chief Complaint: Shortness of Breath Stated Complaint: DIFFICULTY BREATHING Time Seen by Provider: 11/09/16 19:13 Past History <Yuridia Bowers - Last Filed: 11/10/16 06:26> - Past Medical History Anemia: No Asthma: No Cancer: Yes (mesothelioma) Cardiac Disorders: No CVA: No COPD: No CHF: No Dementia: No Diabetes: No GI Disorders: No Disorders: No HTN: Yes (no med) Hypercholesterolemia: No Kidney Stones: No Liver Disease: No Psychiatric Problems: Yes (alcoholism) Suicide Attempt (Hx): No Seizures: No Thyroid Disease: No - Surgical History Abdominal Surgery: No Appendectomy: No Cardiac Surgery: No Cholecystectomy: No Lung Surgery: No Neurologic Surgery: No Orthopedic Surgery: No - Family Disease History Family Disease History: CA: Mother - Reproductive History Testicular Surgery: No - Immunization History TDAP Vaccination: Yes Immunization Up to Date: Yes - Psycho/Social/Smoking Cessation Hx Anxiety: No Suicidal Ideation: No Smoking Status: No Smoking History: Unknown if ever smoked Have you smoked in the past 12 months: No Number of Cigarettes Smoked Daily: 2 Cigars Per Day: 0 Information on smoking cessation initiated: No 'Breaking Loose' booklet given: 11/02/16 Hx Alcohol Use: Yes (a lot) Drug/Substance Use Hx: No Substance Use Type: Alcohol Hx Substance Use Treatment: Yes ([facility] 08/29 not completed) <Lorri Kumar - Last Filed: 11/10/16 06:52> - Past Medical History Allergies/Adverse Reactions: Allergies Allergy/AdvReac Type Severity Reaction Status Date / Time Fish Containing Products Allergy Mild Verified 11/09/16 19:06 Home Medications: Ambulatory Orders NK [No Known Home Medication] 10/15/16 Review of Systems - Review of Systems Able to Perform ROS?: Yes Comments:: 11/10/16 06:27 Unable to obtain ROS secondary to alcohol intoxication. All Other Systems: Reviewed and Negative <Yuridia Bowers - Last Filed: 11/10/16 06:26> *Physical Exam - Vital Signs Last Vital Signs Temp Pulse Resp BP Pulse Ox 99.5 F 102 H 16 132/75 92 L 11/10/16 05:17 11/10/16 05:17 11/10/16 05:17 11/10/16 05:17 11/10/16 05:17 - Physical Exam Comments: 11/10/16 06:27 GENERAL: Well developed, well nourished. Awake and alert. No acute distress. HEENT: Normocephalic, atraumatic. PERRLA, EOMI. No conjunctival pallor. Sclera are non- icteric. Moist mucous membranes. Oropharynx is clear. NECK: Supple. Full ROM. No JVD. Carotid pulses 2+ and symmetric, without bruits. No thyromegaly. NCo lymphadenopathy. CARDIOVASCULAR: Regular rate and rhythm. No murmurs, rubs, or gallops. Distal pulses are 2+ and symmetric. PULMONARY: No evidence of respiratory distress. Lungs clear to auscultation bilaterally. No wheezing, rales or rhonchi. ABDOMINAL: Soft. Non-tender. Non-distended. No rebound or guarding. No organomegaly. Normoactive bowel sounds. MUSCULOSKELETAL Normal range of motion at all joints. No bony deformities or tenderness. No CVA tenderness. EXTREMITIES: No cyanosis. No clubbing. No edema. No calf tenderness. SKIN: Warm and dry. Normal capillary refill. No rashes. No jaundice. NEUROLOGICAL: Alert, awake, appropriate. Cranial nerves 2-12 intact. No deficits to light touch and temperature in face, upper extremities and lower extremities. No motor deficits in the in face, upper extremities and lower extremities. Normoreflexic in the upper and lower extremities. Normal speech. Toes are down- going bilaterally. Gait is normal without ataxia. PSYCHIATRIC: Cooperative. Good eye contact. Appropriate mood and affect. <Yuridia Bowers - Last Filed: 11/10/16 06:26> - Vital Signs Last Vital Signs Temp Pulse Resp BP Pulse Ox 98.7 F 87 16 104/60 98 11/09/16 18:25 11/09/16 18:25 11/09/16 18:25 11/09/16 18:25 11/09/16 23:13 <Lorri Kumar - Last Filed: 11/10/16 06:52> Medical Decision Making - Medical Decision Making 11/10/16 06:43 Pt comes with alcohol intoxication. We have no elementary school social worker and no services to offer pateint. Our case maker asked us to leave patient in a wheelchair all night, and not offer him a bed, as he is here nightly to sleep. Previously I have transferred the patient to detox at [facility] multiple times, to [facility] And today I have arranged for patient to go to [facility] in [address] [place] [address] in [place]. Pt will be discharged to the freight delivery driver who is coming to transport him to that facility. Patient is in agreement to the transfer, as he is hoping to detox himself, but requires more than the 3 day detox that is offered at [facility]. <Lorri Kumar - Last Filed: 11/10/16 06:52> *DC/Admit/Observation/Transfer <Yuridia Bowers - Last Filed: 11/10/16 06:26> - Discharge Dispostion Admit: No <Lorri Kumar - Last Filed: 11/10/16 06:52> Diagnosis at time of Disposition: Alcohol abuse - Discharge Dispostion Disposition: HOME Condition at time of disposition: Stable - Patient Instructions Printed Discharge Instructions: Detoxification (Alternative Therapy)
[2016-11-20 06:13] VITALS: BP 132/75; PULSE 102; TEMP 99.5
== END 2016-11-10 10:17 | disposition home or self-care (01) ==
LOC: JER 18:21
DX: F10.220 Alcohol dependence with intoxication, uncomplicated (principal); C45.9 Mesothelioma, unspecified
CPT/HCPCS: 99283-25

== ENCOUNTER → 2016-11-17 | Emergency (ER) | payer OTHER | END | disposition left against medical advice (07) | LOC: JER 21:07 | DX: Z53.21 Procedure and treatment not carried out due to patient leaving prior to being seen by health care provider (principal) ==

== ENCOUNTER 2016-11-29 14:28 | Emergency (ER) | payer OTHER ==
[2016-11-29 14:43] VITALS: TEMP 98.6; BMI 40.3
--- NOTE | 2016-11-29 15:59 | PDOC ---
History of Present Illness - General History Source: Patient, EMS - History of Present Illness Associated Symptoms: denies: chest pain, cough, fever/chills, headaches, nausea/ vomiting, shortness of breath, weakness <Ninfa Arreola - Last Filed: 11/29/16 18:27> <Dayanara Son - Last Filed: 11/29/16 20:10> - General Chief Complaint: Alcohol intoxication Stated Complaint: INTOX Time Seen by Provider: 11/29/16 15:29 Past History - Past Medical History Anemia: No Asthma: No Cancer: Yes (mesothelioma) Cardiac Disorders: No CVA: No COPD: No CHF: No Dementia: No Diabetes: No GI Disorders: No Disorders: No HTN: Yes (no med) Hypercholesterolemia: No Kidney Stones: No Liver Disease: No Psychiatric Problems: Yes (alcoholism) Suicide Attempt (Hx): No Seizures: No Thyroid Disease: No - Surgical History Abdominal Surgery: No Appendectomy: No Cardiac Surgery: No Cholecystectomy: No Lung Surgery: No Neurologic Surgery: No Orthopedic Surgery: No - Family Disease History Family Disease History: CA: Mother - Reproductive History Testicular Surgery: No - Immunization History TDAP Vaccination: Yes Immunization Up to Date: Yes - Psycho/Social/Smoking Cessation Hx Anxiety: No Suicidal Ideation: No Smoking Status: No Smoking History: Unknown if ever smoked Have you smoked in the past 12 months: No Number of Cigarettes Smoked Daily: 2 Cigars Per Day: 0 Information on smoking cessation initiated: No 'Breaking Loose' booklet given: 11/02/16 Hx Alcohol Use: Yes Drug/Substance Use Hx: No Substance Use Type: Alcohol Hx Substance Use Treatment: Yes ([facility] 08/29 not completed) <Ninfa Arreola - Last Filed: 11/29/16 18:27> <Dayanara Son - Last Filed: 11/29/16 20:10> - Past Medical History Allergies/Adverse Reactions: Allergies Allergy/AdvReac Type Severity Reaction Status Date / Time Fish Containing Products Allergy Mild Verified 11/09/16 19:06 Home Medications: Ambulatory Orders NK [No Known Home Medication] 10/15/16 Review of Systems - Review of Systems Constitutional: No: Chills, Fever Respiratory: No: Cough, Shortness of Breath Cardiac (ROS): No: Chest Pain ABD/GI: No: Constipated, Diarrhea, Nausea, Vomiting, Abdominal cramping : No: Dysuria <Ninfa Arreola - Last Filed: 11/29/16 18:27> *Physical Exam - Vital Signs Last Vital Signs Temp Pulse Resp BP Pulse Ox 98.6 F 92 H 18 134/98 11/29/16 14:38 11/29/16 14:38 11/29/16 14:38 11/29/16 14:38 - Physical Exam General Appearance: Yes: Appropriately Dressed. No: Apparent Distress HEENT: positive: Normal Voice Neck: positive: Supple Respiratory/Chest: positive: Lungs Clear, Normal Breath Sounds. negative: Respiratory Distress Cardiovascular: positive: Regular Rate, S1, S2 Gastrointestinal/Abdominal: positive: Soft. negative: Tender Extremity: positive: Normal Inspection Integumentary: positive: Dry, Warm Neurologic: positive: Fully Oriented, Alert, Normal Mood/Affect <Ninfa Arreola - Last Filed: 11/29/16 18:27> - Vital Signs Last Vital Signs Temp Pulse Resp BP Pulse Ox 98.6 F 92 H 18 134/98 11/29/16 14:38 11/29/16 14:38 11/29/16 14:38 11/29/16 14:38 <Dayanara Son - Last Filed: 11/29/16 20:10> ED Treatment Course - ADDITIONAL ORDERS Additional order review: Laboratory Results 11/29/16 15:17 POC Glucometer [id number] 11/29/16 15:17 POC Glucometer [id number] <Ninfa Arreola - Last Filed: 11/29/16 18:27> - ADDITIONAL ORDERS Additional order review: Laboratory Results 11/29/16 15:17 POC Glucometer [id number] 11/29/16 15:17 POC Glucometer [id number] <Dayanara Son - Last Filed: 11/29/16 20:10> Medical Decision Making - Medical Decision Making 11/29/16 16:00 11/10/16 06:27 61 yo M, h/o GERD, HTN, polysubstance abuse including ETOH w/ numerous ED visits for etoh intoxication, BIB EMS after found intoxicated on the street today. Pt able to give hx and denies fall as documented at triage See exam ETOH intox Stable in ED and currently eating a tray of food No obvious e/o trauma though pt reported fall at triage and to ED nurse -sobriety -watch for s/o withdrawal -CT head given ?fall 11/29/16 16:20 11/29/16 18:28 <Ninfa Arreola - Last Filed: 11/29/16 18:27> *DC/Admit/Observation/Transfer <Ninfa Arreola - Last Filed: 11/29/16 18:27> - Discharge Dispostion Admit: No <Dayanara Son - Last Filed: 11/29/16 20:10> Diagnosis at time of Disposition: Alcohol dependence - Discharge Dispostion Disposition: HOME Condition at time of disposition: Stable - Patient Instructions Printed Discharge Instructions: DI for Alcohol Abuse Additional Instructions: FOLLOW UP WITH [facility] FOR POSSIBLE INTAKE REGARDING ALCOHOL DEPENDENCE. REFRAIN FROM ALCOHOL USE. Print Language: CYMRAES
[2016-11-29 20:49] VITALS: BP 126/86; PULSE 84
== END 2016-11-29 20:49 | disposition home or self-care (01) ==
LOC: JER 14:28
DX: F10.20 Alcohol dependence, uncomplicated (principal); I10 Essential (primary) hypertension; C45.9 Mesothelioma, unspecified
CPT/HCPCS: 70450-TC; 99283-25

== ENCOUNTER 2016-12-05 12:31 | Emergency (ER) | payer OTHER ==
[2016-12-05 12:41] VITALS: TEMP 98.1; BMI 33.0
[2016-12-05] MEDS ORDERED: IBUPROFEN 400 MG TABLET (FP) PO ONE (13:03)
--- NOTE | 2016-12-05 13:22 | PDOC ---
History of Present Illness - General Chief Complaint: Back Pain Stated Complaint: Alcohol intoxication/BACK PAIN Time Seen by Provider: 12/05/16 12:44 History Source: Patient - History of Present Illness Occurred: reports: other Severity: reports: moderate Pain Location: reports: back Method of Injury: No: fall Past History - Past Medical History Allergies/Adverse Reactions: Allergies Allergy/AdvReac Type Severity Reaction Status Date / Time Fish Containing Products Allergy Mild Verified 11/09/16 19:06 Home Medications: Ambulatory Orders NK [No Known Home Medication] 10/15/16 Anemia: No Asthma: No Cancer: Yes (mesothelioma) Cardiac Disorders: No CVA: No COPD: No CHF: No Dementia: No Diabetes: No GI Disorders: No Disorders: No HTN: Yes (no med) Hypercholesterolemia: No Kidney Stones: No Liver Disease: No Psychiatric Problems: Yes (alcoholism) Suicide Attempt (Hx): No Seizures: No Thyroid Disease: No - Surgical History Abdominal Surgery: No Appendectomy: No Cardiac Surgery: No Cholecystectomy: No Lung Surgery: No Neurologic Surgery: No Orthopedic Surgery: No - Family Disease History Family Disease History: CA: Mother - Reproductive History Testicular Surgery: No - Immunization History TDAP Vaccination: Yes Immunization Up to Date: Yes - Psycho/Social/Smoking Cessation Hx Anxiety: No Suicidal Ideation: No Smoking Status: No Smoking History: Never smoked Have you smoked in the past 12 months: No Number of Cigarettes Smoked Daily: 2 Cigars Per Day: 0 Information on smoking cessation initiated: No 'Breaking Loose' booklet given: 11/02/16 Hx Alcohol Use: Yes Drug/Substance Use Hx: No Substance Use Type: Alcohol Hx Substance Use Treatment: Yes ([facility] 08/29 not completed) Trauma Specific PMHX - Complaint Specific PMHX Arthritis: No Back Injury: Yes (seen at this hospital for the rib fractures) Review of Systems - Review of Systems Constitutional: No: Chills, Fever ABD/GI: No: Nausea, Vomiting, Abdominal cramping : No: Dysuria Musculoskeletal: Yes: Back Pain *Physical Exam - Vital Signs Last Vital Signs Temp Pulse Resp BP Pulse Ox 98.1 F 95 H 20 100/75 90 L 12/05/16 12:35 12/05/16 12:35 12/05/16 12:35 12/05/16 12:35 12/05/16 12:35 - Physical Exam General Appearance: Yes: Appropriately Dressed. No: Apparent Distress HEENT: positive: Normal Voice Neck: positive: Supple Respiratory/Chest: negative: Respiratory Distress Musculoskeletal: positive: Normal Inspection, Vertebral Tenderness (to LS spine) . negative: CVA Tenderness Extremity: positive: Normal Inspection Integumentary: positive: Dry, Warm Neurologic: positive: Alert, Normal Mood/Affect, Motor Strength 5/5 Medical Decision Making - Medical Decision Making 12/05/16 13:16 61 yo M, h/o GERD, HTN, endorses chronic lower back pain, ETOH abuse w/ numerous ED visits for ETOH intoxication, usually discharged from the ED, brought in by EMS after patient was found intoxicated on public bench. Patient complaining of non-radiating lower back pain that started several days ago and similar to his chronic pain. Did not take anything for pain. Denies trauma. No extremity weakness, bowel or bladder incontinence or saddle anesthesia. No dysuria, nausea, vomiting, fever or chills. Denies history of kidney stone. See exam Acute on chronic back pain Denies trauma No red flags at this time, i/e cauda equina, infxn, etc Well mo in NAD w/ ETOH on breath and able to ambulate -pain control>reassess ETOH intox -sobriety -watch for withdrawal 12/05/16 13:22 12/05/16 18:30 12/05/16 18:45 Pt requesting food and walking throughout ED. Stable for discharge w/ PMD f/u *DC/Admit/Observation/Transfer Diagnosis at time of Disposition: Alcohol abuse Back pain Qualifiers: Back pain location: low back pain Chronicity: chronic Back pain laterality: midline Sciatica presence: without sciatica Qualified Code(s): M54.5 - Low back pain - Discharge Dispostion Disposition: HOME Condition at time of disposition: Improved - Patient Instructions Printed Discharge Instructions: DI for Low Back Pain Additional Instructions: Please follow up with your PMD
[2016-12-05 18:40] VITALS: BP 138/88; PULSE 88
== END 2016-12-05 18:50 | disposition home or self-care (01) ==
LOC: JER 12:31
DX: F10.220 Alcohol dependence with intoxication, uncomplicated (principal); M54.5 Low back pain; I10 Essential (primary) hypertension; C45.9 Mesothelioma, unspecified
CPT/HCPCS: 99282-25

== ENCOUNTER 2016-12-08 14:50 | Emergency (ER) | payer OTHER ==
--- NOTE | 2016-12-08 15:17 | PDOC ---
History of Present Illness - History of Present Illness Initial Comments: 12/08/16 15:58 The patient is a 61 year old male with a history of GERD, HTN, chronic lower back pain, ETOH abuse w/ numerous ED visits for ETOH intoxication, usually discharged from the ED, who presents to the emergency department via ems from [facility] after requesting alcohol detoxification, however, [facility] is not admitting at this time. Patient denies trauma. Patient amits to drinking alcohol today and states he wants to rest He denies chest pain, shortness of breath, headache and dizziness. He denies fever, chills, nausea, vomit, diarrhea and constipation. He denies dysuria, frequency, urgency and hematuria. <Ernestine Snyder - Last Filed: 12/08/16 17:49> <Vignesh Guillen - Last Filed: 12/08/16 18:51> - General Chief Complaint: Alcohol intoxication Stated Complaint: Alcohol intoxication Time Seen by Provider: 12/08/16 15:03 Past History <Ernestine Snyder - Last Filed: 12/08/16 17:49> - Past Medical History Anemia: No Asthma: No Cancer: Yes (mesothelioma) Cardiac Disorders: No CVA: No COPD: No CHF: No Dementia: No Diabetes: No GI Disorders: No Disorders: No HTN: Yes (no med) Hypercholesterolemia: No Kidney Stones: No Liver Disease: No Psychiatric Problems: Yes (alcoholism) Suicide Attempt (Hx): No Seizures: No Thyroid Disease: No - Surgical History Abdominal Surgery: No Appendectomy: No Cardiac Surgery: No Cholecystectomy: No Lung Surgery: No Neurologic Surgery: No Orthopedic Surgery: No - Family Disease History Family Disease History: CA: Mother - Reproductive History Testicular Surgery: No - Immunization History TDAP Vaccination: Yes Immunization Up to Date: Yes - Psycho/Social/Smoking Cessation Hx Anxiety: No Suicidal Ideation: No Smoking Status: No Smoking History: Never smoked Have you smoked in the past 12 months: No Number of Cigarettes Smoked Daily: 2 Cigars Per Day: 0 'Breaking Loose' booklet given: 11/02/16 Hx Alcohol Use: Yes Drug/Substance Use Hx: No Substance Use Type: Alcohol Hx Substance Use Treatment: Yes ([facility] 08/29 not completed) <Vignesh Guillen - Last Filed: 12/08/16 18:51> - Past Medical History Allergies/Adverse Reactions: Allergies Allergy/AdvReac Type Severity Reaction Status Date / Time Fish Containing Products Allergy Mild Verified 11/09/16 19:06 Home Medications: Ambulatory Orders NK [No Known Home Medication] 10/15/16 Review of Systems - Review of Systems Constitutional: No: Chills, Fever Respiratory: No: Cough, Shortness of Breath Cardiac (ROS): No: Chest Pain ABD/GI: No: Diarrhea, Vomiting Neurological: No: Headache All Other Systems: Reviewed and Negative <Vignesh Guillen - Last Filed: 12/08/16 18:51> *Physical Exam - Vital Signs Last Vital Signs Temp Pulse Resp BP Pulse Ox 98.4 F 77 18 95/60 100 12/08/16 14:50 12/08/16 14:50 12/08/16 14:50 12/08/16 14:50 12/08/16 14:50 - Physical Exam Comments: 12/08/16 15:58 GENERAL: (+) ETOH on breath. The patient is somnolent, but arousable and fully oriented, in no acute distress. HEAD:[Normal with no signs of trauma. EYES: Pupils equal, round and reactive to light, extraocular movements intact, sclera anicteric, conjunctiva clear. EXTREMITIES: Normal range of motion, no edema. NEUROLOGICAL: Normal speech, normal gait. PSYCH: Normal mood, normal affect. SKIN: Warm, Dry, normal turgor, no rashes or lesions noted. <Ernestine Snyder - Last Filed: 12/08/16 17:49> Medical Decision Making - Medical Decision Making 12/08/16 16:14 A portion of this note was documented by scribe services under my direction. I have reviewed the details of the note, within reason, and agree with the documentation with the following case summary and management plan written by me. 61-year-old male chronic alcoholism well-known to this institution for frequent visits for intoxication presents brought in by EMS with same. He was drinking today, denies any injuries or complaints, just wants to rest. Vitals as noted and within normal limits. Well-known to me, he appears to be at his baseline without cardiopulmonary distress Neurologically nonfocal 61-year-old male with chronic alcoholism presents with intoxication. Observe, reassess, dispo accordingly No indication for emergent workup 12/08/16 18:49 now alert and ambulatory, declines direct transfer for detox, requesting discharge and taxi home. <Vignesh Guillen - Last Filed: 12/08/16 18:51> *DC/Admit/Observation/Transfer - Attestations Scribe Attestion: 12/08/16 15:59 Documentation prepared by Ernestine Snyder, acting as program medical director for Vignesh Guillen MD, <Ernestine Snyder - Last Filed: 12/08/16 17:49> <Vignesh Guillen - Last Filed: 12/08/16 18:51> Diagnosis at time of Disposition: Alcohol intoxication Alcohol dependence Qualifiers: Substance use status: unspecified alcohol-induced disorder Qualified Code(s): F10.29 - Alcohol dependence with unspecified alcohol-induced disorder - Discharge Dispostion Disposition: HOME Condition at time of disposition: Improved - Patient Instructions Printed Discharge Instructions: DI for Alcohol Abuse Additional Instructions: Try to drink in moderation. Call a detox facility as discussed. Return to the ER for pain, falls, weakness, fever.
[2016-12-08 15:24] VITALS: BP 95/60; PULSE 77; TEMP 98.4; BMI 25.8
== END 2016-12-08 19:17 | disposition home or self-care (01) ==
LOC: JER 14:50
DX: F10.220 Alcohol dependence with intoxication, uncomplicated (principal); I10 Essential (primary) hypertension; C45.9 Mesothelioma, unspecified
CPT/HCPCS: 99282-25

== ENCOUNTER 2016-12-10 19:39 | Emergency (ER) | payer OTHER ==
[2016-12-10 19:58] VITALS: TEMP 98.2; BMI 34.7
--- NOTE | 2016-12-11 01:09 | PDOC ---
History of Present Illness - General Chief Complaint: Alcohol intoxication Stated Complaint: INTOX Time Seen by Provider: 12/10/16 19:47 History Source: Patient Exam Limitations: Clinical Condition - History of Present Illness Initial Comments: 61 yo M well known to this ED presents with alcohol intoxication. Denies any pain, SOB. No recent trauma. Patient offers no complaints at present. Past History - Past Medical History Allergies/Adverse Reactions: Allergies Allergy/AdvReac Type Severity Reaction Status Date / Time Fish Containing Products Allergy Mild Verified 11/09/16 19:06 Home Medications: Ambulatory Orders NK [No Known Home Medication] 10/15/16 Anemia: No Asthma: No Cancer: Yes (mesothelioma) Cardiac Disorders: No CVA: No COPD: No CHF: No Dementia: No Diabetes: No GI Disorders: No Disorders: No HTN: Yes (no med) Hypercholesterolemia: No Kidney Stones: No Liver Disease: No Psychiatric Problems: Yes (alcoholism) Suicide Attempt (Hx): No Seizures: No Thyroid Disease: No - Surgical History Abdominal Surgery: No Appendectomy: No Cardiac Surgery: No Cholecystectomy: No Lung Surgery: No Neurologic Surgery: No Orthopedic Surgery: No - Family Disease History Family Disease History: CA: Mother - Reproductive History Testicular Surgery: No - Immunization History TDAP Vaccination: Yes Immunization Up to Date: Yes - Psycho/Social/Smoking Cessation Hx Anxiety: No Suicidal Ideation: No Smoking Status: No Smoking History: Current some day smoker Have you smoked in the past 12 months: No Number of Cigarettes Smoked Daily: 2 Cigars Per Day: 0 Information on smoking cessation initiated: No 'Breaking Loose' booklet given: 11/02/16 Hx Alcohol Use: Yes Drug/Substance Use Hx: No Substance Use Type: Alcohol Hx Substance Use Treatment: Yes ([facility] 08/29 not completed) Review of Systems - Review of Systems Able to Perform ROS?: No (intoxicated) *Physical Exam - Vital Signs Last Vital Signs Temp Pulse Resp BP Pulse Ox 98.2 F 88 20 103/66 12/10/16 19:55 12/10/16 19:55 12/10/16 19:55 12/10/16 19:55 - Physical Exam Comments: GENERAL: Awake, alert, in no acute distress. Answers questions. +AOB. HEAD: No signs of trauma EYES: PERRLA, EOMI, sclera anicteric, conjunctiva clear ENT: Auricles normal inspection, hearing grossly normal, nares patent, oropharynx clear without exudates. Moist mucosa NECK: Normal ROM, supple, no lymphadenopathy, JVD, or masses LUNGS: Breath sounds equal, clear to auscultation bilaterally. No wheezes, and no crackles HEART: Regular rate and rhythm, normal S1 and S2, no murmurs, rubs or gallops ABDOMEN: Soft, nontender, normoactive bowel sounds. No guarding, no rebound. No masses EXTREMITIES: Normal range of motion, no edema. No clubbing or cyanosis. No cords , erythema, or tenderness NEUROLOGICAL: Cranial nerves II through XII grossly intact. Slurred speech, unsteady gait SKIN: Warm, Dry, normal turgor, no rashes or lesions noted. Medical Decision Making - Medical Decision Making 12/11/16 03:[address] Iniguez. Gait has improved, more steady at present. Monitor to clinical sobriety. *DC/Admit/Observation/Transfer Diagnosis at time of Disposition: Alcohol abuse, Alcohol intoxication - Discharge Dispostion Condition at time of disposition: Improved Admit: No - Referrals Referrals: Garima Bridges MD [Primary Care Provider] - - Patient Instructions Printed Discharge Instructions: DI for Alcohol Abuse
[2016-12-11 06:32] VITALS: BP 109/56; PULSE 83
== END 2016-12-11 06:20 | disposition home or self-care (01) ==
LOC: JER 19:39
DX: F10.120 Alcohol abuse with intoxication, uncomplicated (principal); C45.9 Mesothelioma, unspecified; F17.210 Nicotine dependence, cigarettes, uncomplicated
CPT/HCPCS: 99282-25

== ENCOUNTER 2016-12-14 02:50 | Emergency (ER) | payer OTHER ==
[2016-12-14 05:52] VITALS: BP 141/65; PULSE 86; TEMP 97.7; BMI 40.8
--- NOTE | 2016-12-14 06:29 | PDOC ---
History of Present Illness <Lorri Kumar - Last Filed: 12/14/16 06:29> - General History Source: Patient Exam Limitations: No Limitations - History of Present Illness Initial Comments: 12/14/16 06:42 The patient is a 61-year-old male BIB [facility] with a significant past medical history of alcohol abuse, and presents to the emergency department with alcohol intoxication today. He reports he had a pint of alcohol today. The patient is a frequent visitor of [facility] for alcohol intoxication. The patient denies chest pain, shortness of breath, headache and dizziness. The patient denies fever, chills, nausea, vomit, diarrhea and constipation. The patient denies dysuria, frequency, urgency and hematuria. Allergies: fish containing products Social History: Alcohol abuse, former smoker, denies drug use <Joelle Smalls - Last Filed: 12/14/16 06:42> <Verona Thomas - Last Filed: 12/14/16 12:58> - General Chief Complaint: Alcohol intoxication Stated Complaint: ALCOHOL INTOXICATION Time Seen by Provider: 12/14/16 04:51 Past History - Past Medical History Anemia: No Asthma: No Cancer: Yes (mesothelioma) Cardiac Disorders: No CVA: No COPD: No CHF: No Dementia: No Diabetes: No GI Disorders: No Disorders: No HTN: Yes (no med) Hypercholesterolemia: No Kidney Stones: No Liver Disease: No Psychiatric Problems: Yes (alcoholism) Suicide Attempt (Hx): No Seizures: No Thyroid Disease: No - Surgical History Abdominal Surgery: No Appendectomy: No Cardiac Surgery: No Cholecystectomy: No Lung Surgery: No Neurologic Surgery: No Orthopedic Surgery: No - Family Disease History Family Disease History: CA: Mother - Reproductive History Testicular Surgery: No - Immunization History TDAP Vaccination: Yes Immunization Up to Date: Yes - Psycho/Social/Smoking Cessation Hx Anxiety: No Suicidal Ideation: No Smoking Status: No Smoking History: Former smoker Have you smoked in the past 12 months: No Number of Cigarettes Smoked Daily: 2 Cigars Per Day: 0 Information on smoking cessation initiated: No 'Breaking Loose' booklet given: 11/02/16 Hx Alcohol Use: Yes Drug/Substance Use Hx: No Substance Use Type: Alcohol Hx Substance Use Treatment: Yes ([facility] 08/29 not completed) <Lorri Kumar - Last Filed: 12/14/16 06:29> <Joelle Smalls - Last Filed: 12/14/16 06:42> <WilliamVerona - Last Filed: 12/14/16 12:58> - Past Medical History Allergies/Adverse Reactions: Allergies Allergy/AdvReac Type Severity Reaction Status Date / Time Fish Containing Products Allergy Mild Verified 12/14/16 05:52 Home Medications: Ambulatory Orders NK [No Known Home Medication] 10/15/16 Review of Systems - Review of Systems Able to Perform ROS?: Yes Comments:: 12/14/16 06:42 CONSTITUTIONAL: Present: (+) alcohol intoxication Absent: fever, no chills, no fatigue EYES: Absent: visual changes ENT: Absent: ear pain, no sore throat CARDIOVASCULAR: Absent: chest pain, no palpitations RESPIRATORY: Absent: cough, no SOB GI: Absent: abdominal pain, no nausea, no vomiting, no constipation, no diarrhea GENITOURINARY: Absent: dysuria, no frequency, no hematuria MUSCULOSKELETAL: Absent: back pain, no arthralgia, no myalgia SKIN: Absent: rash NEURO: Absent: headache <Joelle Smalls - Last Filed: 12/14/16 06:42> *Physical Exam - Vital Signs Last Vital Signs Temp Pulse Resp BP Pulse Ox 97.7 F 86 20 141/65 96 12/14/16 03:10 12/14/16 03:10 12/14/16 03:10 12/14/16 03:10 12/14/16 03:10 <Shannan Kumarreen - Last Filed: 12/14/16 06:29> - Vital Signs Last Vital Signs Temp Pulse Resp BP Pulse Ox 97.7 F 86 20 141/65 96 12/14/16 03:10 12/14/16 03:10 12/14/16 03:10 12/14/16 03:10 12/14/16 03:10 - Physical Exam Comments: 12/14/16 06:43 GENERAL: Well-appearing, well-nourished. No apparent distress. HEENT: Normocephalic, atraumatic. PERRL, EOM intact. CARDIOVASCULAR: Normal S1, S2. Regular rate and rhythm. PULMONARY: Clear to auscultation bilaterally. ABDOMEN: Soft, non-distended, non-tender. EXTREMITIES: Normal ROM in all four extremities. No gross deformities. SKIN: Warm, dry. No rash NEUROLOGICAL: No focal neurological deficits. <Joelle Smalls - Last Filed: 12/14/16 06:42> - Vital Signs Last Vital Signs Temp Pulse Resp BP Pulse Ox 97.7 F 86 20 141/65 96 12/14/16 03:10 12/14/16 03:10 12/14/16 03:10 12/14/16 03:10 12/14/16 03:10 <Verona Thomas - Last Filed: 12/14/16 12:58> ED Treatment Course - ADDITIONAL ORDERS Additional order review: Laboratory Results 12/14/16 08:25 POC Glucometer [id number] 12/14/16 08:25 POC Glucometer [id number] <Verona Thomas - Last Filed: 12/14/16 12:58> *DC/Admit/Observation/Transfer <Lorri Kumar - Last Filed: 12/14/16 06:29> - Attestations Scribe Attestion: 12/14/16 06:44 Documentation prepared by Joelle Smalls, acting as medical records receptionist for Lorri Kumar MD. <Joelle Smalls - Last Filed: 12/14/16 06:42> - Discharge Dispostion Admit: No <Verona Thomas - Last Filed: 12/14/16 12:58> Diagnosis at time of Disposition: Alcohol intoxication - Discharge Dispostion Disposition: HOME Condition at time of disposition: Fair - Referrals Referrals: STAFF,NOT ON [Primary Care Provider] -
== END 2016-12-14 13:01 | disposition home or self-care (01) ==
LOC: JER 02:50 → SUPCPDRO 02:50 → JER 13:01
DX: F10.220 Alcohol dependence with intoxication, uncomplicated (principal); C45.9 Mesothelioma, unspecified; I10 Essential (primary) hypertension; Z59.0 Homelessness; Z87.891 Personal history of nicotine dependence
CPT/HCPCS: 99281-25

== ENCOUNTER 2017-01-01 11:48 | Inpatient (IN) | payer OTHER ==
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
[2017-01-01] MEDS ORDERED: hydrOXYzine PAMOATE 25 MG CAPSULE (FP) PO PRN (18:26)
[2017-01-01] MEDS ORDERED: MAG HYDROX/AL HYDROX/SIMETH 30 ML UNIT-DOSE CUP PO PRN (18:26)
[2017-01-01] MEDS ORDERED: MAGNESIUM CITRATE 300 ML BOTTLE PO PRN (18:26)
[2017-01-01] MEDS ORDERED: guaiFENesin/D-METHORPHAN HB 10 ML UNIT-DOSE CUPS PO PRN (18:26)
[2017-01-01] MEDS ORDERED: IBUPROFEN 400 MG TABLET (FP) PO PRN (18:26)
[2017-01-01] MEDS ORDERED: P-EPHED 60MG/TRIPROLIDI 2.5MG TABLET PO PRN (18:26)
[2017-01-01] MEDS ORDERED: MENTHOL/PHENOL 1 EACH UD MM PRN (18:26)
[2017-01-01] MEDS ORDERED: MAGNESIUM HYDROX 2400MG/30ML ORAL SUSPENSION 30 ML CUP PO PRN (18:26)
[2017-01-01] MEDS ORDERED: chlordiazePOXIDE HCL 25 MG CAPSULE PO PRN (18:26)
[2017-01-01] MEDS ORDERED: LOPERAMIDE HCL 2 MG CAPSULE PO PRN (18:26)
[2017-01-01 18:58] VITALS: BMI 33.0
[2017-01-01] MEDS ORDERED: chlordiazePOXIDE HCL 25 MG CAPSULE PO ONE (19:00)
[2017-01-01 21:02] LABS: URINE APPEARANCE CLEAR; URINE BLOOD 1+ (NEGATIVE); URINE COLOR AMBER; URINE GLUCOSE (UA) NEGATIVE (NEGATIVE); URINE KETONE TRACE (NEGATIVE); URINE LEUK ESTERASE NEGATIVE (NEGATIVE); URINE NITRITE NEGATIVE (NEGATIVE); URINE UROBILINOGEN 4.0 E.U/dl mg/dL (0.2-1.0)
[2017-01-01 21:08] LABS: URINE PROTEIN 1+ (NEGATIVE)
[2017-01-01 22:20] LABS: GRANULAR CASTS 47 /lpf; URINE HYALINE CAST 50 /lpf; URINE MUCUS MODERATE; URINE RBC 1 /hpf (0-3); URINE WBC 23 /hpf (3-5)
[2017-01-01] MEDS: THIAMINE HCL 100 MG TABLET (FP) PO SCH (22:53)
[2017-01-01] MEDS: chlordiazePOXIDE HCL 25 MG CAPSULE PO SCH (22:54)
[2017-01-01] MEDS: diphenhydrAMINE HCL 50 MG CAPSULE PO PRN (22:54)
--- NOTE | 2017-01-02 00:07 | PN ---
[facility] Progress Note Note: SPIRAL [employer] W[employer]ER went to assess the pt. after he c/o dizziness earlier. Pt. was found resting comfortably in bed. His v/s were as followed: BP 100/56, P 99, R 18. He denied dizziness, chest pain, palpitations and blurry vision. He stated he had no complaints and wanted to get some rest. Will continue to monitor.
[2017-01-02] MEDS ORDERED: ALBUTEROL SO4 2.5/IPRATROPIUM 0.5 INH SOL 3 ML VIAL.NEB. NEB PRN (01:35)
--- NOTE | 2017-01-02 01:46 | PN ---
S Progress Note (SOAP) Subjective: Pt. assessed in his room. He is c/o sob, chest tightness and dizziness. Objective: 01/02/17 01:41 Last Vital Signs Temp Pulse Resp BP Pulse Ox 99.4 F 102 H 18 132/64 93 % on room air Assessment: 01/02/17 01:42 Breathing was labored and pt. had difficulty speaking. B/l wheezing noted. Plan: started on 3 l of O2 via nc nebulizer treatment ordered transferred to ER for further evaluation Report given Nicolasa at [facility] ER
[2017-01-02] MEDS: chlordiazePOXIDE HCL 25 MG CAPSULE PO SCH ×4 (06:05→22:38)
[2017-01-02] MEDS ORDERED: POTASSIUM CHLORIDE TABS 20 MEQ TABLET.ER (FP) PO ONE (06:56)
--- NOTE | 2017-01-02 10:23 | EKG ---
Test Reason : Blood Pressure : / mmHG Vent. Rate : 091 BPM Atrial Rate : 091 BPM P-R Int : 164 ms QRS Dur : 094 ms QT Int : 420 ms P-R-T Axes : 030 -29 051 degrees QTc Int : 516 ms SINUS RHYTHM WITH OCCASIONAL PREMATURE VENTRICULAR COMPLEXES AND PREMATURE ATRIAL COMPLEXES NONSPECIFIC ST AND T WAVE ABNORMALITY ABNORMAL ECG Confirmed by MD JESSY, JUNIOR ([id number]) on 01/02/2017 10:22:51 AM Referred By: JW MENDEZ Confirmed By:JUNIOR JIMÉNEZ MD
--- NOTE | 2017-01-02 10:23 | EKG ---
Test Reason : Blood Pressure : / mmHG Vent. Rate : 109 BPM Atrial Rate : 109 BPM P-R Int : 154 ms QRS Dur : 094 ms QT Int : 400 ms P-R-T Axes : 031 -17 012 degrees QTc Int : 538 ms SINUS TACHYCARDIA WITH FREQUENT WITH PREMATURE VENTRICULAR OR ABERRANTLY CONDUCTED COMPLEXES SEPTAL INFARCT , AGE UNDETERMINED PROLONGED QT ABNORMAL ECG Confirmed by MD JESSY, JUNIOR ([id number]) on 01/02/2017 10:22:38 AM Referred By: Confirmed By:JUNIOR JIMÉNEZ MD
[2017-01-02] MEDS: PRENATAL VITAMINS W/ FOLIC ACID TABLET (FP) PO SCH (10:41)
[2017-01-02] MEDS: POTASSIUM CHLORIDE TABS 20 MEQ TABLET.ER (FP) PO SCH ×2 (10:41→22:38)
--- NOTE | 2017-01-02 12:21 | PN ---
[facility] CIWA - CIWA Score Nausea/Vomitin-No Nausea/No Vomiting Muscle Tremors: 4-Moderate,w/Arms Extend Anxiety: 4-Mod. Anxious/Guarded Agitation: 4-Moderately Restless Paroxysmal Sweats: 1-Minimal Palms Moist Orientation: 0-Oriented Tacttile Disturbances: 3-Moderate Itch/Numb/Burn Auditory Disturbances: 0-None Visual Disturbances: 0-None Headache: 0-None Present CIWA-Ar Total Score: 16 BHS Progress Note (SOAP) Subjective: PT WAS BROUGHT BACK FROM [facility]LIER THIS SHIFT BY AMBULANCE. C/O SLIGHT ANXIETY,SWEATS,TREMORS. DENIES SOB OR CHEST PAIN. REQUESTED FOR HIS BREAKFAST TRAY ONCE SETTLED IN BED ON ARRIVAL. Objective: 01/02/17 12:18 Vital Signs Temperature 97.4 F L 01/02/17 09:21 Pulse Rate 72 01/02/17 09:21 Respiratory Rate 18 01/02/17 09:21 Blood Pressure 111/67 01/02/17 09:21 O2 Sat by Pulse Oximetry (%) Laboratory Last Values Urine Color Cecile 01/01/17 18:15 Urine Appearance Clear 01/01/17 18:15 Urine pH 6.0 (5.0-8.0) D 01/01/17 18:15 Ur Specific [place] 1.015 (1.005-1.025) 01/01/17 18:15 Urine Protein 1+ (NEGATIVE) H 01/01/17 18:15 Urine Glucose (UA) Negative (NEGATIVE) 01/01/17 18:15 Urine Ketones Trace (NEGATIVE) H 01/01/17 18:15 Urine Blood 1+ (NEGATIVE) H 01/01/17 18:15 Urine Nitrite Negative (NEGATIVE) 01/01/17 18:15 Urine Bilirubin 4.0 (NEGATIVE) 01/01/17 18:15 Urine Urobilinogen 4.0 e.u/dl mg/dL (0.2-1.0) 01/01/17 18:15 Ur Leukocyte Esterase Negative (NEGATIVE) 01/01/17 18:15 Urine RBC 1 /hpf (0-3) 01/01/17 18:15 Urine WBC 23 /hpf (3-5) 01/01/17 18:15 Ur Epithelial Cells Rare /hpf (FEW) 01/01/17 18:15 Hyaline Casts 50 /lpf 01/01/17 18:15 Granular Casts 47 /lpf 01/01/17 18:15 Urine Mucus Moderate 01/01/17 18:15 K+ 2.3 AT ER TODAY. PT ON K-DUR. Assessment: 01/02/17 12:19 WITHDRAWAL SX Plan: CONTINUE DETOX MONITOR PT STATUS
[2017-01-02] MEDS: THIAMINE HCL 100 MG TABLET (FP) PO SCH (22:38)
[2017-01-02] MEDS: diphenhydrAMINE HCL 50 MG CAPSULE PO PRN (22:38)
[2017-01-03] MEDS: chlordiazePOXIDE HCL 25 MG CAPSULE PO SCH ×3 (05:39→17:18)
[2017-01-03] MEDS: PRENATAL VITAMINS W/ FOLIC ACID TABLET (FP) PO SCH (10:28)
[2017-01-03] MEDS: POTASSIUM CHLORIDE TABS 20 MEQ TABLET.ER (FP) PO SCH ×2 (10:28→22:09)
--- NOTE | 2017-01-03 20:44 | PN ---
[facility] CIWA - CIWA Score Nausea/Vomitin-No Nausea/No Vomiting Muscle Tremors: 4-Moderate,w/Arms Extend Anxiety: 4-Mod. Anxious/Guarded Agitation: 2 Paroxysmal Sweats: 4-Forehead w/Sweat Beads Orientation: 0-Oriented Tacttile Disturbances: 2-Mild Itch/Numbness/Burn Auditory Disturbances: 0-None Visual Disturbances: 0-None Headache: 3-Moderate CIWA-Ar Total Score: 19 BHS Progress Note (SOAP) Subjective: Tremors, Interrupted Sleep, H/A, Body Aches, Sweating. Objective: PT. A & O X 3, OBSERVED AMBULATING ON UNIT. NO ACUTE DISTRESS. 01/03/17 20:40 Vital Signs Temperature 98.7 F 01/03/17 18:37 Pulse Rate 102 H 01/03/17 18:37 Respiratory Rate 20 01/03/17 18:37 Blood Pressure 145/90 01/03/17 18:37 O2 Sat by Pulse Oximetry (%) Laboratory Tests 01/01/17 18:15 Urine Color Cecile Urine Appearance Clear Urine pH 6.0 D Ur Specific [place] 1.015 Urine Protein 1+ H Urine Glucose (UA) Negative Urine Ketones Trace H Urine Blood 1+ H Urine Nitrite Negative Urine Bilirubin 4.0 Urine Urobilinogen 4.0 e.u/dl Ur Leukocyte Esterase Negative Urine RBC 1 Urine WBC 23 Ur Epithelial Cells Rare Hyaline Casts 50 Granular Casts 47 Urine Mucus Moderate LABS NOTED. Assessment: 01/03/17 20:41 WITHDRAWAL SYMPTOMS. Plan: CONTINUE DETOX.
[2017-01-03] MEDS: THIAMINE HCL 100 MG TABLET (FP) PO SCH (22:07)
[2017-01-03] MEDS: ACETAMINOPHEN 325 MG TABLET (FP) PO PRN (22:08)
[2017-01-03] MEDS: diphenhydrAMINE HCL 50 MG CAPSULE PO PRN (22:09)
[2017-01-03] MEDS: chlordiazePOXIDE 5 MG CAPSULE PO SCH (22:09)
[2017-01-04] MEDS: chlordiazePOXIDE 5 MG CAPSULE PO SCH ×3 (05:14→17:42)
[2017-01-04] MEDS: PRENATAL VITAMINS W/ FOLIC ACID TABLET (FP) PO SCH (10:37)
[2017-01-04] MEDS: POTASSIUM CHLORIDE TABS 20 MEQ TABLET.ER (FP) PO SCH ×2 (10:39→22:34)
--- NOTE | 2017-01-04 16:49 | PN ---
BHS Progress Note (SOAP) Subjective: Chills, weakness, interrupted sleep (wants ambien), anxious Objective: 01/04/17 16:47 Last Vital Signs Temp Pulse Resp BP Pulse Ox 98.4 F 106 H 20 138/96 01/04/17 14:42 01/04/17 14:42 01/04/17 14:42 01/04/17 14:42 Laboratory Tests 01/01/17 18:15 Urine Color Cecile Urine Appearance Clear Urine pH 6.0 D Ur Specific [place] 1.015 Urine Protein 1+ H Urine Glucose (UA) Negative Urine Ketones Trace H Urine Blood 1+ H Urine Nitrite Negative Urine Bilirubin 4.0 Urine Urobilinogen 4.0 e.u/dl Ur Leukocyte Esterase Negative Urine RBC 1 Urine WBC 23 Ur Epithelial Cells Rare Hyaline Casts 50 Granular Casts 47 Urine Mucus Moderate Labs noted: UA abnormal Assessment: 01/04/17 16:48 Withdrawal symptoms Noted with abnormal UA Plan: Continue detox Abnormal UA: encouraged to drink lots of water (water pitcher ordered), repeat UA
[2017-01-04] MEDS: THIAMINE HCL 100 MG TABLET (FP) PO SCH (22:34)
[2017-01-04] MEDS: chlordiazePOXIDE HCL 10 MG CAPSULE PO SCH (22:34)
[2017-01-04] MEDS: ZOLPIDEM TARTRATE 10 MG TABLET (PARK CARE ONLY) PO PRN (22:34)
[2017-01-04] MEDS: ACETAMINOPHEN 325 MG TABLET (FP) PO PRN (22:37)
[2017-01-05] MEDS: chlordiazePOXIDE HCL 10 MG CAPSULE PO SCH ×3 (05:55→17:08)
--- NOTE | 2017-01-05 10:09 | PN ---
S Progress Note (SOAP) Subjective: Pt. claims he fell on his buttocks,denies any injuries. Objective: 01/05/17 10:05 Vital Signs - 24 hr 01/04/17 01/04/17 01/04/17 10:52 14:42 17:16 Temperature 97.8 F 98.4 F 96.9 F L Pulse Rate 58 L 106 H 106 H Respiratory 20 20 20 Rate Blood Pressure 136/90 138/96 155/95 01/04/17 01/04/17 01/05/17 21:40 23:30 00:30 Temperature 100.6 F H 96.2 F L Pulse Rate 116 H Respiratory 18 18 Rate Blood Pressure 113/82 01/05/17 01/05/17 01/05/17 03:34 07:00 09:00 Temperature 97.1 F L 96.8 F L Pulse Rate 60 106 H Respiratory 18 18 18 Rate Blood Pressure 140/89 143/100 01/05/17 09:37 Temperature 98.0 F Pulse Rate 98 H Respiratory 20 Rate Blood Pressure 145/86 Exam : No bruises noted on buttocks. Extensive fungal infection of the feet Urine Test Results Urine Color Cecile 01/01/17 18:15 Urine Appearance Clear 01/01/17 18:15 Urine pH 6.0 (5.0-8.0) D 01/01/17 18:15 Ur Specific [place] 1.015 (1.005-1.025) 01/01/17 18:15 Urine Protein 1+ (NEGATIVE) H 01/01/17 18:15 Urine Glucose (UA) Negative (NEGATIVE) 01/01/17 18:15 Urine Ketones Trace (NEGATIVE) H 01/01/17 18:15 Urine Blood 1+ (NEGATIVE) H 01/01/17 18:15 Urine Nitrite Negative (NEGATIVE) 01/01/17 18:15 Urine Bilirubin 4.0 (NEGATIVE) 01/01/17 18:15 Ur Leukocyte Esterase Negative (NEGATIVE) 01/01/17 18:15 Urine RBC 1 /hpf (0-3) 01/01/17 18:15 Urine WBC 23 /hpf (3-5) 01/01/17 18:15 Ur Epithelial Cells Rare /hpf (FEW) 01/01/17 18:15 Urine Mucus Moderate 01/01/17 18:15 repeat u/a Assessment: 01/05/17 10:07 Withdrawal sx. Fall without head trauma Plan: Continue detox Fall protocol #2 repeat u/a
[2017-01-05] MEDS: POTASSIUM CHLORIDE TABS 20 MEQ TABLET.ER (FP) PO SCH ×2 (10:24→21:32)
[2017-01-05] MEDS: PRENATAL VITAMINS W/ FOLIC ACID TABLET (FP) PO SCH (10:24)
[2017-01-05] MEDS: TOLNAFTATE 1% CREAM 15 GM TUBE TP SCH ×2 (10:25→22:07)
[2017-01-05 17:33] LABS: URINE APPEARANCE CLEAR; URINE BILIRUBIN NEGATIVE (NEGATIVE); URINE BLOOD NEGATIVE (NEGATIVE); URINE COLOR AMBER; URINE GLUCOSE (UA) NEGATIVE (NEGATIVE); URINE KETONE NEGATIVE (NEGATIVE); URINE LEUK ESTERASE NEGATIVE (NEGATIVE); URINE NITRITE NEGATIVE (NEGATIVE); URINE PROTEIN NEGATIVE (NEGATIVE)
[2017-01-05] MEDS: ACETAMINOPHEN 325 MG TABLET (FP) PO PRN (21:30)
[2017-01-05] MEDS: THIAMINE HCL 100 MG TABLET (FP) PO SCH (21:30)
[2017-01-05] MEDS: ZOLPIDEM TARTRATE 10 MG TABLET (PARK CARE ONLY) PO PRN (21:32)
[2017-01-06] MEDS: PRENATAL VITAMINS W/ FOLIC ACID TABLET (FP) PO SCH (09:17)
[2017-01-06] MEDS: TOLNAFTATE 1% CREAM 15 GM TUBE TP SCH (09:17)
[2017-01-06] MEDS: POTASSIUM CHLORIDE TABS 20 MEQ TABLET.ER (FP) PO SCH (09:17)
[2017-01-06 09:34] VITALS: BP 160/89; PULSE 113; TEMP 96.3
--- NOTE | 2017-01-07 16:37 | DS ---
[facility] Detox Discharge Summary Admission Date: 01/01/17 Discharge Date: 01/06/17 - History Present History: Alcohol Dependence Pertinent Past History: HTN Hypokalemia - Physical Exam Results Vital Signs: Vital Signs Temperature 96.3 F L 01/06/17 09:33 Pulse Rate 113 H 01/06/17 09:33 Respiratory Rate 20 01/06/17 09:33 Blood Pressure 160/89 01/06/17 09:33 O2 Sat by Pulse Oximetry (%) Pertinent Admission Physical Exam Findings: Withdrawal sx. - Treatment Hospital Course: Detox Protocol Followed, Detoxed Safely, Responded well, Discharged Condition Good, Rehab Referral Accepted - Medication Discharge Medications: Ambulatory Orders NK [No Known Home Medication] 10/15/16
== END 2017-01-06 09:08 | disposition home or self-care (01) | DRG 775 ==
LOC: YASAS 11:48 → Y3N 18:26
PROVIDERS: ADMIT Internal Medicine Addiction Medicine; ATTEND Internal Medicine Addiction Medicine
PROC: HZ2ZZZZ Detoxification Services for Substance Abuse Treatment (ICD-10-PCS; principal; 2017-01-06)
DX: F10.230 Alcohol dependence with withdrawal, uncomplicated (principal); C45.9 Mesothelioma, unspecified; S05.12XA Contusion of eyeball and orbital tissues, left eye, initial encounter; Y08.89XA Assault by other specified means, initial encounter; Y93.9 Activity, unspecified; Y92.9 Unspecified place or not applicable; Z59.0 Homelessness
CPT/HCPCS: 73630-TC-RT; 73660-TC; 81003; 81015; 93005; 93010; 94640

== ENCOUNTER 2017-01-02 02:02 | Emergency (ER) | payer OTHER ==
[2017-01-02 03:03] VITALS: BMI 33.0
[2017-01-02] MEDS ORDERED: ALBUTEROL SO4 2.5/IPRATROPIUM 0.5 INH SOL 3 ML VIAL.NEB. NEB ONE ×2 (03:51→04:51)
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
[2017-01-02 04:13] LABS: BASOPHIL 0.6 % (0-2.0); EOSINOPHIL 0.9 % (0-4.5); MCH 33.9 pg (25.7-33.7); MCHC 33.6 g/dl (32.0-35.9); NEUTROPHILS 73.8 % (42.8-82.8); PLATELET COUNT 157 K/MM3 (134-434); RDW 16.9 % (11.9-15.9); WHITE BLOOD COUNT 5.9 K/mm3 (4.0-10.0)
[2017-01-02 04:37] LABS: ANION GAP 15 (8-16); BILIRUBIN,TOTAL 3.6 mg/dL (0.2-1.0); CALCIUM 7.2 mg/dL (8.5-10.1); CO2 36 mmol/L (21-32); GLUCOSE,RANDOM 88 mg/dL (74-106); SGOT/AST 134 U/L (15-37); SGPT/ALT 41 U/L (12-78); TOT PROT 5.9 g/dl (6.4-8.2)
[2017-01-02 04:38] LABS: ALK PHOS 129 U/L (45-117); CREATININE 1.1 mg/dL (0.7-1.3)
[2017-01-02 04:41] LABS: TROPONIN I 0.03 ng/ml (0.00-0.05)
[2017-01-02] MEDS ORDERED: POTASSIUM CHLORIDE TABS 20 MEQ TABLET.ER (FP) PO ONE ×3 (04:42→07:39)
[2017-01-02] MEDS ORDERED: chlordiazePOXIDE HCL 25 MG CAPSULE PO ONE (04:55)
[2017-01-02] MEDS ORDERED: chlordiazePOXIDE HCL 25 MG CAPSULE ONE (04:55)
--- NOTE | 2017-01-02 05:09 | PDOC ---
Attending Attestation - Resident Resident Name: Julio Ram - ED Attending Attestation I have performed the following: I have examined & evaluated the patient, The case was reviewed & discussed with the resident, I agree w/resident's findings & plan - Medical Decision Making 01/02/17 05:07 Pt refusing to take any form of Potassium. Pt will be return to [facility]. PIG FARMER Magaly Fernandez aware and pt will return <Altaf Iniguez - Last Filed: 01/02/17 05:07> - HPI HPI: The patient is 61 yo M with a PMH of substance abuse presents from [facility] with chest pain, numbness in his hands and SOB since earlier today. The patient also endorses epigastric pain worsened by palpation. The patient denies nausea, vomiting and diarrhea. - Physicial Exam PE: GENERAL: Well-appearing, well-nourished. No apparent distress. HEENT: Normocephalic, atraumatic. PERRL, EOM intact. CARDIOVASCULAR: Normal S1, S2. Regular rate and rhythm. PULMONARY: wheezing and rhonchi present. ABDOMEN: Soft, obese, non-distended, tender to palpation in epigastric region. EXTREMITIES: Normal ROM in all four extremities. No gross deformities. SKIN: Warm, dry. No rash NEUROLOGICAL: No focal neurological deficits. <Luann Medina - Last Filed: 01/02/17 05:12>
[2017-01-02 07:55] VITALS: BP 122/84; PULSE 92; TEMP 98.3
--- NOTE | 2017-01-02 10:15 | EKG ---
Test Reason : Blood Pressure : / mmHG Vent. Rate : 090 BPM Atrial Rate : 090 BPM P-R Int : 150 ms QRS Dur : 100 ms QT Int : 420 ms P-R-T Axes : 015 -35 075 degrees QTc Int : 513 ms NORMAL SINUS RHYTHM LEFT AXIS DEVIATION NONSPECIFIC ST ABNORMALITY PROLONGED QT ABNORMAL ECG Confirmed by MD JESSY, JUNIOR ([id number]) on 01/02/2017 10:15:03 AM Referred By: Confirmed By:JUNIOR JIMÉNEZ MD
== END 2017-01-02 08:09 | disposition other institution (70) ==
LOC: JER 02:02
PROC: 3E0F7GC Introduction of Other Therapeutic Substance into Respiratory Tract, Via Natural or Artificial Opening (ICD-10-PCS; principal; 2017-01-02)
DX: E87.6 Hypokalemia (principal); F10.20 Alcohol dependence, uncomplicated; C45.9 Mesothelioma, unspecified
CPT/HCPCS: 36415; 71010-TC; 80053; 82550; 82553; 83690; 83880; 84484; 85025; 93005; 93010; 94640; 99284-25

== ENCOUNTER 2017-01-06 13:28 | Inpatient (IN) | payer OTHER ==
[2017-01-06 14:00] VITALS: BMI 33.0
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
[2017-01-06] MEDS ORDERED: DIPHTH,PERTUSS(ACELL),TET 0.5 ML DISP.SYRIN IM ONE (15:49)
[2017-01-06 16:22] LABS: BASOPHIL 0.4 % (0-2.0); EOSINOPHIL 0.6 % (0-4.5); MCH 33.6 pg (25.7-33.7); MCHC 32.4 g/dl (32.0-35.9); MEAN CELL VOLUME 103.8 fl (80-96); MEAN PLT VOLUME 8.3 fl (7.5-11.1); NEUTROPHILS 74.3 % (42.8-82.8); PLATELET COUNT 272 K/MM3 (134-434); RDW 17.2 % (11.9-15.9); WHITE BLOOD COUNT 11.3 K/mm3 (4.0-10.0)
[2017-01-06 16:23] LABS: ALBUMIN 2.8 g/dl (3.4-5.0); ANION GAP 12 (8-16); BILIRUBIN,TOTAL 1.2 mg/dL (0.2-1.0); CALCIUM 9.5 mg/dL (8.5-10.1); CO2 32 mmol/L (21-32); CREATININE 0.7 mg/dL (0.7-1.3); GLUCOSE,RANDOM 87 mg/dL (74-106); SGOT/AST 124 U/L (15-37); SGPT/ALT 65 U/L (12-78); TOT PROT 6.1 g/dl (6.4-8.2)
[2017-01-06 16:26] LABS: ALK PHOS 131 U/L (45-117); TROPONIN I < 0.02 ng/ml (0.00-0.05)
--- NOTE | 2017-01-06 16:52 | PDOC ---
*Physical Exam - Vital Signs Last Vital Signs Temp Pulse Resp BP Pulse Ox 98.5 F 95 H 20 107/65 99 01/06/17 13:58 01/06/17 13:58 01/06/17 13:58 01/06/17 13:58 01/06/17 16:14 Heart Score/ECG Review #1 ECG reviewed & interpreted by me at: 16:10 01/06/17 16:52 NSR 111, T wave flattening V6, no std/emir, QTC 492 msec ED Treatment Course - LABORATORY CBC & Chemistry Diagram: 01/08/17 06:00 01/08/17 06:00 - ADDITIONAL ORDERS Additional order review: 01/06/17 15:40 RBC 3.47 L MCV 103.8 H MCHC 32.4 RDW 17.2 H MPV 8.3 Neutrophils % 74.3 Lymphocytes % 18.1 Monocytes % 6.6 Eosinophils % 0.6 Basophils % 0.4 Medical Decision Making - Medical Decision Making 01/06/17 16:50 Pt seen by the Advanced Practice Provider under my direct supervision Pt interviewed and examined Ancillary studies reviewed I agree with plan as outlined by the Advanced Practice Provider MICHAEL Colunga This is a well-known patient to the emergency department who has multiple medical problems including alcohol abuse. The patient presents to the ED for potential alcohol abuse. While in the ED, the patient had attempted to stand up and lost his footing and fell and hit his head. Sustained two posterior superficial lacerations. Fall "thump" heard by the ED staff and noted the patient to be briefly loss of consciousness. He was unclear if the patient had pulses are not but Zoll monitoring demonstrated sinus tach. CPR was briefly initiated by ED staff. No medications was given. Patient was noted to have agonal breathing and was assisted with bag valve mask. However, patient returned to mental baseline and pulses were palpable. Patient was placed and CT C-spine protection. Patient was ordered for head CT and cervical CT C-spine. We' ll need to order tenderness and to repair the lacerations. The patient should ultimately be admitted to the hospital for observation given the circumstances. EKG demonstrates sinus tachycardia but no other acute findings at this time. *DC/Admit/Observation/Transfer Diagnosis at time of Disposition: Alcohol dependence, Alcohol intoxication, Hypokalemia, Hypomagnesemia, Closed head injury, Fall from standing
[2017-01-06] MEDS ORDERED: MAGNESIUM SULF 50% (8.12 MEQ/2 ML-1 GM VIAL) IVPB ONE (16:59)
[2017-01-06] MEDS ORDERED: POTASSIUM CHLORIDE TABS 20 MEQ TABLET.ER (FP) PO ONE ×2 (16:59→17:15)
[2017-01-06] MEDS ORDERED: KCL 10 MEQ IVPB 100 ML IVPB SCH (17:00)
[2017-01-06 17:01] LABS: INR 1.15 (0.82-1.09); PROTHROMBIN TIME (PATIENT) 12.7 SEC (9.98-11.88)
[2017-01-06] MEDS ORDERED: KCL 10 MEQ IVPB 100 ML IVPB ONE (17:15)
[2017-01-06] MEDS ORDERED: MAGNESIUM SULF 50% (8.12 MEQ/2 ML-1 GM VIAL) ONE (17:15)
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
[2017-01-06] MEDS ORDERED: POTASSIUM CHLORIDE ORAL LIQUID 20 MEQ/15 ML PO ONE (17:37)
[2017-01-06] MEDS ORDERED: MAGNESIUM OXIDE 400 MG TABLET (FP) PO ONE (17:37)
[2017-01-06] MEDS ORDERED: ONDANSETRON 4 MG/2 ML VIAL IVPB PRN (17:38)
[2017-01-06] MEDS ORDERED: FOLIC ACID INJECTION - 1 MG, THIAMINE HCL 100 MG, MULTIVIT INJECTION ADULT 10 ML in SOD... IVPB ONE (17:38)
[2017-01-06] MEDS ORDERED: chlordiazePOXIDE HCL 25 MG CAPSULE PO ONE (17:42)
[2017-01-06] MEDS ORDERED: chlordiazePOXIDE HCL 25 MG CAPSULE PO PRN (17:42)
[2017-01-06] MEDS ORDERED: ACETAMINOPHEN 325 MG TABLET (FP) PO ONE (19:09)
[2017-01-06] MEDS ORDERED: VANCOMYCIN 1,500 MG in DEXTROSE 5%-WATER - 500 ML IVPB ONE (19:14)
[2017-01-06] MEDS ORDERED: PIPERACILLIN/TAZOB 3.375 GM 50 ML IVPB ONE (19:15)
[2017-01-06] MEDS: THIAMINE HCL 100 MG TABLET (FP) PO SCH (23:25)
[2017-01-06] MEDS: chlordiazePOXIDE HCL 25 MG CAPSULE PO SCH (23:26)
[2017-01-07] MEDS: chlordiazePOXIDE HCL 25 MG CAPSULE PO SCH ×4 (06:16→22:54)
[2017-01-07] MEDS ORDERED: SODIUM CHLORIDE 1,000 ML IV SCH (07:45)
[2017-01-07 08:19] LABS: BASOPHIL 0.4 % (0-2.0); EOSINOPHIL 0.9 % (0-4.5); MCH 35.2 pg (25.7-33.7); MCHC 34.1 g/dl (32.0-35.9); MEAN CELL VOLUME 103.5 fl (80-96); MEAN PLT VOLUME 8.1 fl (7.5-11.1); NEUTROPHILS 77.8 % (42.8-82.8); PLATELET COUNT 224 K/MM3 (134-434); RDW 16.7 % (11.9-15.9); WHITE BLOOD COUNT 8.3 K/mm3 (4.0-10.0)
[2017-01-07] MEDS: FOLIC ACID 1 MG TABLET (FP) PO SCH (09:10)
[2017-01-07] MEDS: PANTOPRAZOLE 40 MG TABLET (FP) PO SCH (09:10)
[2017-01-07 09:12] LABS: ALBUMIN 2.4 g/dl (3.4-5.0); CALCIUM 8.6 mg/dL (8.5-10.1); CO2 36 mmol/L (21-32); CREATININE 0.6 mg/dL (0.7-1.3); GLUCOSE,RANDOM 75 mg/dL (74-106); MAGNESIUM 1.4 mg/dL (1.8-2.4); PHOSPHOROUS 3.3 mg/dL (2.5-4.9); SGOT/AST 93 U/L (15-37); SGPT/ALT 54 U/L (12-78)
[2017-01-07 09:46] LABS: ANION GAP 10 (8-16)
[2017-01-07 09:56] LABS: BILIRUBIN,TOTAL 1.7 mg/dL (0.2-1.0); TOT PROT 5.3 g/dl (6.4-8.2)
[2017-01-07 09:57] LABS: ALK PHOS 111 U/L (45-117); TROPONIN I 0.02 ng/ml (0.00-0.05)
[2017-01-07] MEDS ORDERED: NAPH,MB-DB/K PH,MBDB POWDER PACKET PO SCH (10:00)
[2017-01-07] MEDS ORDERED: MAGNESIUM SULF 50% (8.12 MEQ/2 ML-1 GM VIAL) IVPB ONE (11:00)
[2017-01-07] MEDS ORDERED: POTASSIUM CHLORIDE ORAL LIQUID 20 MEQ/15 ML PO ONE (11:30)
--- NOTE | 2017-01-07 12:55 | EKG ---
Test Reason : Blood Pressure : / mmHG Vent. Rate : 111 BPM Atrial Rate : 111 BPM P-R Int : 162 ms QRS Dur : 090 ms QT Int : 362 ms P-R-T Axes : 051 -22 044 degrees QTc Int : 492 ms POOR DATA QUALITY, INTERPRETATION MAY BE ADVERSELY AFFECTED SINUS TACHYCARDIA WITH FREQUENT PREMATURE VENTRICULAR COMPLEXES POSSIBLE LEFT ATRIAL ENLARGEMENT ABNORMAL ECG WHEN COMPARED WITH ECG OF 02-JAN-2017 04:42, PREMATURE VENTRICULAR COMPLEXES ARE NOW PRESENT ST NOW DEPRESSED IN INFERIOR LEADS NONSPECIFIC T WAVE ABNORMALITY NO LONGER EVIDENT IN ANTERIOR LEADS NONSPECIFIC T WAVE ABNORMALITY NOW EVIDENT IN LATERAL LEADS Confirmed by PALMER RICHMOND, YONATAN ([id number]) on 01/07/2017 12:55:19 PM Referred By: Confirmed By:YONATAN CHAKRABORTY MD
--- NOTE | 2017-01-07 14:42 | PN ---
Physical Exam: SUBJECTIVE: Patient seen and examined. He says his head hurts, no further complaints. Events: - Fever tmax 102.3 OBJECTIVE: Vital Signs Period Temp Pulse Resp BP Sys/Jang Pulse Ox Last 24 Hr 98.0 F-98.8 F 90-99 18-20 107-130/60-75 96 PE Neuro: sleeping but arousable, knows he is at [facility], oriented to self HEENT: posterior lacteration x4 roseann intact Pulm: clear, no sob noted CV: s1 s2 rrr no mrg Abd: obese abd, s nt +bs Ext: warm, no le edema Laboratory Results - last 24 hr 01/07/17 01/07/17 01/07/17 02:00 05:40 05:40 WBC 8.3 RBC 3.05 L Hgb 10.7 L Hct 31.5 L MCV 103.5 H MCH 35.2 H MCHC 34.1 RDW 16.7 H Plt Count 224 MPV 8.1 Neutrophils % 77.8 Lymphocytes % 12.1 D Monocytes % 8.8 Eosinophils % 0.9 Basophils % 0.4 Sodium 139 Potassium 2.7 L* Chloride 93 L Carbon Dioxide 36 H Anion Gap 10 BUN 10 Creatinine 0.6 L Creat Clearance w eGFR > 60 Random Glucose 75 Lactic Acid 2.4 H* Calcium 8.6 Phosphorus 3.3 D Magnesium 1.4 L D Total Bilirubin 1.7 H D AST 93 H D ALT 54 Alkaline Phosphatase 111 Troponin I 0.02 Total Protein 5.3 L Albumin 2.4 L Active Medications Generic Name Dose Route Start Last Admin Trade Name Freq PRN Reason Stop Dose Admin Acetaminophen 650 mg 01/07/17 10:29 Tylenol - PO Q4H PRN FEVER OR PAIN Chlordiazepoxide HCl 25 mg 01/06/17 17:42 Librium - PO 01/09/17 17:41 Q4H PRN WITHDRAWAL(CONT SUBST) Chlordiazepoxide HCl 25 mg 01/07/17 17:00 Librium - PO 01/08/17 11:01 [id number] CAREY Chlordiazepoxide HCl 15 mg 01/08/17 17:00 Librium - PO 01/09/17 11:01 [id number] CAREY Folic Acid 1 mg 01/06/17 17:45 01/07/17 09:10 Folic Acid - PO 1 mg DAILY CAREY Administration Sodium Chloride 1,000 mls @ 100 mls/hr 01/07/17 07:45 01/07/17 09:10 Normal Saline - IV 01/07/17 17:44 100 mls/hr ASDIR CAREY Administration Magnesium Oxide 800 mg 01/07/17 22:00 Mag-Ox - PO 01/07/17 22:01 ONCE ONE Ondansetron HCl 4 mg 01/06/17 17:38 Zofran Injection IVPB Q6H PRN NAUSEA Pantoprazole Sodium 40 mg 01/07/17 10:00 01/07/17 09:10 Protonix - PO 40 mg DAILY CAREY Administration Thiamine HCl 100 mg 01/06/17 22:00 01/06/17 23:25 Vitamin B1 - PO 100 mg HS CAREY Administration Assessment: 61 year old male admitted s/p fall sustaining posterior skull laceration Plan: 1. ETOH abuse - Continue Librium detox - Folic acid - Thaimine daily 2. Lactic Acid - Fever last night - Give 1L NS - Check Lactate - x1 dose zosyn given - Blood cx pending - CXR negative 3. Hypomagnesemia - Due to above - Repleted 2gm mg IV today - Give 800mg mg ox x1 HS 3. Hypokalemia - Replete 40meq po - x1 packet kphos 4. s/p fall w/laceration - Neuro status stable - Repeat Head CT if changes occur - Monitor wound site - Daily cleaning of wound - PT eval Problem List - Problems (1) Alcohol abuse Code(s): F10.10 - ALCOHOL ABUSE, UNCOMPLICATED (2) Alcohol dependence Code(s): F10.20 - ALCOHOL DEPENDENCE, UNCOMPLICATED Qualifiers: Substance use status: unspecified alcohol-induced disorder Qualified Code(s): F10.29 - Alcohol dependence with unspecified alcohol-induced disorder (3) Contusion of head Code(s): S00.93XA - CONTUSION OF UNSPECIFIED PART OF HEAD, INITIAL ENCOUNTER Qualifiers: Encounter type: subsequent encounter Contusion of head detail: scalp Qualified Code(s): S00.03XD - Contusion of scalp, subsequent encounter (4) Homelessness Code(s): Z59.0 - HOMELESSNESS (5) Hypokalemia Code(s): E87.6 - HYPOKALEMIA (6) Hypomagnesemia Code(s): E83.42 - HYPOMAGNESEMIA Visit type - Emergency Visit Emergency Visit: Yes ED Registration Date: 01/07/17 Care time: The patient presented to the Emergency Department on the above date and was hospitalized for further evaluation of their emergent condition. - New Patient This patient is new to me today: No - Critical Care Critical Care patient: No
[2017-01-07] MEDS ORDERED: MAGNESIUM OXIDE 400 MG TABLET (FP) PO ONE (22:00)
[2017-01-07] MEDS: THIAMINE HCL 100 MG TABLET (FP) PO SCH (22:53)
[2017-01-07] MEDS: ACETAMINOPHEN 325 MG TABLET (FP) PO PRN (22:54)
[2017-01-07] MEDS ORDERED: SODIUM CHLORIDE 1,000 ML IV STA (23:48)
[2017-01-08] MEDS: chlordiazePOXIDE HCL 25 MG CAPSULE PO SCH ×2 (05:55→11:39)
[2017-01-08 08:12] LABS: MCH 35.2 pg (25.7-33.7); MEAN CELL VOLUME 103.4 fl (80-96); MEAN PLT VOLUME 8.4 fl (7.5-11.1); PLATELET COUNT 268 K/MM3 (134-434); RDW 16.5 % (11.9-15.9); WHITE BLOOD COUNT 7.3 K/mm3 (4.0-10.0)
[2017-01-08 09:26] LABS: ALBUMIN 2.4 g/dl (3.4-5.0); ALK PHOS 121 U/L (45-117); ANION GAP 10 (8-16); BILIRUBIN,TOTAL 1.6 mg/dL (0.2-1.0); CALCIUM 8.5 mg/dL (8.5-10.1); CO2 34 mmol/L (21-32); CREATININE 0.5 mg/dL (0.7-1.3); GLUCOSE,RANDOM 81 mg/dL (74-106); MAGNESIUM 1.8 mg/dL (1.8-2.4); SGOT/AST 81 U/L (15-37); SGPT/ALT 51 U/L (12-78); TOT PROT 5.3 g/dl (6.4-8.2)
[2017-01-08] MEDS: FOLIC ACID 1 MG TABLET (FP) PO SCH ×2 (09:28→09:29)
[2017-01-08] MEDS: ACETAMINOPHEN 325 MG TABLET (FP) PO PRN ×2 (09:29→15:37)
[2017-01-08] MEDS: PANTOPRAZOLE 40 MG TABLET (FP) PO SCH (09:29)
--- NOTE | 2017-01-08 10:37 | PN ---
Physical Exam: SUBJECTIVE: Patient seen and examined. He says he wants to go to his sisters today, he denies GARCIA blurry vision, sob, cp. Making jokes. OBJECTIVE: Vital Signs Period Temp Pulse Resp BP Sys/Jang Pulse Ox Last 24 Hr 98.0 F-99.2 F 88-99 18-20 130-172/68-96 93 PE Neuro: alert, awake, cn 2-12intact HEENT: posterior lacteration x4 roseann intact, mild hematoma to L orbital - improving Pulm: CTAB CV: s1 s2 rrr no mrg Abd: obese abd, s nt +bs Ext: warm, no le edema Laboratory Results - last 24 hr 01/07/17 01/08/17 01/08/17 17:50 06:00 06:00 WBC 7.3 RBC 3.16 L Hgb 11.1 L Hct 32.7 L MCV 103.4 H MCH 35.2 H MCHC 34.0 RDW 16.5 H Plt Count 268 MPV 8.4 Sodium 141 Potassium 2.9 L* Chloride 97 L Carbon Dioxide 34 H Anion Gap 10 BUN 9 Creatinine 0.5 L Creat Clearance w eGFR > 60 Random Glucose 81 Lactic Acid 3.7 H* Calcium 8.5 Magnesium 1.8 D Total Bilirubin 1.6 H AST 81 H ALT 51 Alkaline Phosphatase 121 H Total Protein 5.3 L Albumin 2.4 L 01/08/17 06:00 Lactic Acid 1.7 Active Medications Generic Name Dose Route Start Last Admin Trade Name Freq PRN Reason Stop Dose Admin Acetaminophen 650 mg 01/07/17 10:29 01/08/17 09:29 Tylenol - PO 650 mg Q4H PRN Administration FEVER OR PAIN Chlordiazepoxide HCl 25 mg 01/06/17 17:42 Librium - PO 01/09/17 17:41 Q4H PRN WITHDRAWAL(CONT SUBST) Chlordiazepoxide HCl 25 mg 01/07/17 17:00 01/08/17 05:55 Librium - PO 01/08/17 11:01 25 mg [id number] CAREY Administration Chlordiazepoxide HCl 15 mg 01/08/17 17:00 Librium - PO 01/09/17 11:01 Q3L-VBE CAREY Folic Acid 1 mg 01/06/17 17:45 01/08/17 09:29 Folic Acid - PO 1 mg DAILY CAREY Administration Ondansetron HCl 4 mg 01/06/17 17:38 Zofran Injection IVPB Q6H PRN NAUSEA Pantoprazole Sodium 40 mg 01/07/17 10:00 01/08/17 09:29 Protonix - PO 40 mg DAILY CAREY Administration Potassium Chloride 40 meq 01/08/17 10:19 Potassium Chloride Oral Liquid PO 01/08/17 10:20 ONCE ONE Potassium Chloride 40 meq 01/08/17 10:20 Potassium Chloride Oral Liquid PO 01/08/17 10:21 ONCE ONE Thiamine HCl 100 mg 01/06/17 22:00 01/07/17 22:53 Vitamin B1 - PO 100 mg HS CAREY Administration Assessment: 61 year old male admitted s/p fall sustaining posterior skull laceration Plan: 1. ETOH abuse - Continue Librium detox - Folic acid - Thaimine daily 2. Lactic Acid - Resolved following fluids - No fever, cxr negative, BC NGTD - UA pending 3. Hypomagnesemia - Resolved 3. Hypokalemia - Replete 40meq po now and additional 40meq in 4 hrs 4. s/p fall w/laceration - Neuro status stable - Repeat Head CT if changes occur - Monitor wound site - Daily cleaning of wound - PT eval Problem List - Problems (1) Alcohol abuse Code(s): F10.10 - ALCOHOL ABUSE, UNCOMPLICATED (2) Alcohol dependence Code(s): F10.20 - ALCOHOL DEPENDENCE, UNCOMPLICATED Qualifiers: Substance use status: unspecified alcohol-induced disorder Qualified Code(s): F10.29 - Alcohol dependence with unspecified alcohol-induced disorder (3) Contusion of head Code(s): S00.93XA - CONTUSION OF UNSPECIFIED PART OF HEAD, INITIAL ENCOUNTER Qualifiers: Encounter type: subsequent encounter Contusion of head detail: scalp Qualified Code(s): S00.03XD - Contusion of scalp, subsequent encounter (4) Homelessness Code(s): Z59.0 - HOMELESSNESS (5) Hypokalemia Code(s): E87.6 - HYPOKALEMIA (6) Hypomagnesemia Code(s): E83.42 - HYPOMAGNESEMIA Visit type - Emergency Visit Emergency Visit: Yes ED Registration Date: 01/07/17 Care time: The patient presented to the Emergency Department on the above date and was hospitalized for further evaluation of their emergent condition. - New Patient This patient is new to me today: No - Critical Care Critical Care patient: No
[2017-01-08] MEDS ORDERED: POTASSIUM CHLORIDE ORAL LIQUID 20 MEQ/15 ML PO ONE ×2 (11:00→15:00)
[2017-01-08 13:10] LABS: URINE APPEARANCE CLEAR; URINE BILIRUBIN NEGATIVE (NEGATIVE); URINE BLOOD 1+ (NEGATIVE); URINE COLOR YELLOW; URINE GLUCOSE (UA) NEGATIVE (NEGATIVE); URINE KETONE NEGATIVE (NEGATIVE); URINE LEUK ESTERASE NEGATIVE (NEGATIVE); URINE NITRITE NEGATIVE (NEGATIVE); URINE PROTEIN NEGATIVE (NEGATIVE)
[2017-01-08 13:13] LABS: URINE RBC <1 /hpf (0-3); URINE WBC 2 /hpf (3-5)
[2017-01-08 17:23] LABS: TROPONIN I < 0.02 ng/ml (0.00-0.05)
[2017-01-08] MEDS: chlordiazePOXIDE 5 MG CAPSULE PO SCH ×2 (18:03→22:37)
[2017-01-08] MEDS: THIAMINE HCL 100 MG TABLET (FP) PO SCH (22:37)
[2017-01-09] MEDS: ACETAMINOPHEN 325 MG TABLET (FP) PO PRN (02:45)
[2017-01-09] MEDS: chlordiazePOXIDE 5 MG CAPSULE PO SCH ×2 (06:52→11:35)
[2017-01-09 08:50] LABS: ALBUMIN 2.4 g/dl (3.4-5.0); ALK PHOS 125 U/L (45-117); ANION GAP 8 (8-16); BILIRUBIN,TOTAL 1.1 mg/dL (0.2-1.0); CALCIUM 8.4 mg/dL (8.5-10.1); CO2 32 mmol/L (21-32); CREATININE 0.5 mg/dL (0.7-1.3); GLUCOSE,RANDOM 79 mg/dL (74-106); SGOT/AST 68 U/L (15-37); SGPT/ALT 44 U/L (12-78); TOT PROT 5.4 g/dl (6.4-8.2)
[2017-01-09] MEDS: FOLIC ACID 1 MG TABLET (FP) PO SCH (09:45)
[2017-01-09] MEDS: PANTOPRAZOLE 40 MG TABLET (FP) PO SCH (09:45)
[2017-01-09 11:20] VITALS: BP 113/57; PULSE 96; TEMP 98.2
--- NOTE | 2017-01-09 12:17 | DS ---
Physical Examination Vital Signs: Vital Signs Temperature 98.2 F 01/09/17 09:00 Pulse Rate 96 H 01/09/17 09:00 Respiratory Rate 20 01/09/17 09:00 Blood Pressure 113/57 01/09/17 09:00 O2 Sat by Pulse Oximetry (%) 96 01/09/17 09:00 Labs: CBC, BMP 01/08/17 06:00 01/09/17 05:35 Discharge Summary Reason For Visit: HYPOKALEMIA; ALCOHOL DEPENDENCE Current Active Problems Alcohol dependence (Acute) Alcohol intoxication (Acute) Chest pain (Acute) Closed head injury (Acute) Fall from standing (Acute) Hypokalemia (Acute) Hypomagnesemia (Acute) Condition: Improved - Instructions Diet, Activity, Other Instructions: Please return to the ED with new, persistent, or worsening symptoms. Please follow-up with your provider as indicated. Please return to the Emergency Department at [facility] on 01/20/17 to have your roseann removed: [address] [place] [address] Referrals: Jame Mackey MD [Staff Physician] - (Please follow-up with Dr. Mackey within 2-3 days for further evaluation of your bilirubin and to ensure it is still trending down) Disposition: HOME - Home Medications Comprehensive Discharge Medication List: Ambulatory Orders Folic Acid - 1 mg PO DAILY #30 tablet 01/09/17 Multivitamin [Poly-Vitamin] 1 each PO DAILY #30 tab.chew 01/09/17 Thiamine HCl [Vitamin B1 -] 100 mg PO HS #30 tablet 01/09/17
== END 2017-01-09 13:18 | disposition home or self-care (01) | DRG 364 ==
LOC: JER 13:28 → JERBED 17:38 → J4W 21:20 → OBSVTOIN 01-07 01:03
PROVIDERS: ADMIT Internal Medicine; ATTEND Registered Nurse
PROC: 0JQ00ZZ Repair Scalp Subcutaneous Tissue and Fascia, Open Approach (ICD-10-PCS; principal; 2017-01-06)
PROC: HZ2ZZZZ Detoxification Services for Substance Abuse Treatment (ICD-10-PCS; 2017-01-07)
DX: S01.81XA Laceration without foreign body of other part of head, initial encounter (principal); W19.XXXA Unspecified fall, initial encounter; Y93.9 Activity, unspecified; Y92.89 Other specified places as the place of occurrence of the external cause; Y99.9 Unspecified external cause status; E87.6 Hypokalemia; F10.20 Alcohol dependence, uncomplicated; R07.9 Chest pain, unspecified; E83.42 Hypomagnesemia; E87.2 Acidosis; Z59.0 Homelessness
CPT/HCPCS: 36415; 70450-TC; 71010-TC; 72125-TC; 80053; 81003; 81015; 82550; 83605; 83735; 84100; 84484; 85025; 85027; 85610; 85730; 86850; 86900; 86901; 87040; 90715; 93005; 93010; 97116-GP; 97161-GP; 99285-25; G0378

== ENCOUNTER 2017-01-15 15:47 | Emergency (ER) | payer OTHER ==
[2017-01-15 16:14] VITALS: TEMP 98.3; BMI 33.0
--- NOTE | 2017-01-15 16:53 | PDOC ---
History of Present Illness - General History Source: Patient Exam Limitations: Intoxication - History of Present Illness Initial Comments: The patient is a 61 yo M well known to this institution BIBA for intoxication. The patient is a poor historian secondary to intoxication. Patient upon arrival is intoxicated but able to communicate with multiple verbal and tactile cueing and denies any discomfort presently. The patient states he wants to be discharged. <Luann Medina - Last Filed: 01/15/17 18:38> <Fernie Rosenthal - Last Filed: 01/15/17 19:11> - General Chief Complaint: Alcohol intoxication Stated Complaint: DETOX Time Seen by Provider: 01/15/17 16:01 Past History <Luann Medina - Last Filed: 01/15/17 18:38> - Past Medical History Anemia: No Asthma: No Cancer: Yes (mesothelioma) Cardiac Disorders: No CVA: No COPD: No CHF: No Dementia: No Diabetes: No GI Disorders: No Disorders: No HTN: Yes (no med) Hypercholesterolemia: No Kidney Stones: No Liver Disease: No Psychiatric Problems: Yes (alcoholism) Suicide Attempt (Hx): No Seizures: No Thyroid Disease: No - Surgical History Abdominal Surgery: No Appendectomy: No Cardiac Surgery: No Cholecystectomy: No Lung Surgery: No Neurologic Surgery: No Orthopedic Surgery: No - Family Disease History Family Disease History: CA: Mother - Reproductive History Testicular Surgery: No - Immunization History TDAP Vaccination: Yes Immunization Up to Date: Yes - Psycho/Social/Smoking Cessation Hx Anxiety: No Suicidal Ideation: No Smoking Status: No Smoking History: Never smoked Have you smoked in the past 12 months: No Number of Cigarettes Smoked Daily: 0 Cigars Per Day: 0 'Breaking Loose' booklet given: 11/02/16 Hx Alcohol Use: Yes (daily) Drug/Substance Use Hx: No Substance Use Type: Alcohol Hx Substance Use Treatment: Yes ([facility] 11/02/16 to 11/05/16) <Fernie Rosenthal - Last Filed: 01/15/17 19:11> - Past Medical History Allergies/Adverse Reactions: Allergies Allergy/AdvReac Type Severity Reaction Status Date / Time Fish Containing Products Allergy Mild Verified 01/15/17 16:14 No Known Drug Allergies Allergy Verified 01/15/17 16:14 Home Medications: Ambulatory Orders NK [No Known Home Medication] 01/15/17 Review of Systems - Review of Systems Able to Perform ROS?: No (Intoxication) <Luann Mednia - Last Filed: 01/15/17 18:38> *Physical Exam - Vital Signs Last Vital Signs Temp Pulse Resp BP Pulse Ox 98.3 F 92 H 18 111/55 91 L 01/15/17 16:12 01/15/17 16:12 01/15/17 16:12 01/15/17 16:12 01/15/17 16:12 - Physical Exam Comments: GENERAL: Intoxicated. In no acute distress HEENT: No signs of trauma, PERRLA, EOMI, sclera anicteric, conjunctiva clear, hearing grossly normal, moist mucosa NECK: Normal ROM, supple, no lymphadenopathy, JVD, or masses LUNGS: Breath sounds equal, clear to auscultation bilaterally. No wheezes, and no crackles HEART: Regular rate and rhythm, normal S1 and S2, no murmurs, rubs or gallops ABDOMEN: Soft, nontender, normoactive bowel sounds. No guarding, no rebound. No masses EXTREMITIES: Normal range of motion, no edema. No clubbing or cyanosis. No cords, erythema, or tenderness NEUROLOGICAL: No gross focal neurological deficits. SKIN: Warm, Dry, normal turgor, no rashes or lesions noted. <Luann Medina - Last Filed: 01/15/17 18:38> - Vital Signs Last Vital Signs Temp Pulse Resp BP Pulse Ox 98.3 F 92 H 18 111/55 91 L 01/15/17 16:12 01/15/17 16:12 01/15/17 16:12 01/15/17 16:12 01/15/17 16:12 <Fernie Rosenthal - Last Filed: 01/15/17 19:11> Medical Decision Making - Medical Decision Making 01/15/17 18:35 61yo M w frequent presentations to the ED with etoh intox p/w etoh intox. Pt denies any complaints and is currently ambulating in the ED with a steady gait. Denies any falls or trauma. On re-examination, pt with no facial signs of trauma , spinal tenderness to palpation. No deformities or ttp in extremities. Pt requesting to be DC. FS 97 -MTF -DC 01/15/17 18:58 <Fernie Rosenthal - Last Filed: 01/15/17 19:11> *DC/Admit/Observation/Transfer - Attestations Scribe Attestion: Documentation prepared by Luann Medina, acting as medical data analyst for Fernie Rosenthal MD, MD/DO. <Launn Medina - Last Filed: 01/15/17 18:38> - Discharge Dispostion Admit: No - Attestations Physician Attestion: 01/15/17 19:10 I, Dr. Fernie Rosenthal MD, attest that this document has been prepared under my direction and personally reviewed by me in its entirety. I further attest, that it accurately reflects all work, treatment, procedures and medical decision -making performed by me. 01/15/17 19:11 <Fernie Rosenthal - Last Filed: 01/15/17 19:11> Diagnosis at time of Disposition: Alcohol intoxication - Discharge Dispostion Disposition: HOME Condition at time of disposition: Stable - Patient Instructions Printed Discharge Instructions: DI for Alcohol Abuse
[2017-01-15 18:47] VITALS: BP 120/70; PULSE 108
== END 2017-01-15 19:23 | disposition home or self-care (01) ==
LOC: JER 15:47
DX: F10.129 Alcohol abuse with intoxication, unspecified (principal); C45.9 Mesothelioma, unspecified; Z59.0 Homelessness; I10 Essential (primary) hypertension; Z91.013 Allergy to seafood
CPT/HCPCS: 99283-25

== ENCOUNTER 2017-01-15 22:21 | Emergency (ER) | payer OTHER ==
[2017-01-15 22:48] VITALS: BP 106/55; PULSE 98; TEMP 98.3; BMI 36.0
--- NOTE | 2017-01-16 02:11 | PDOC ---
History of Present Illness - General History Source: Patient Exam Limitations: No Limitations - History of Present Illness Initial Comments: 01/16/17 02:26 The patient is a 62-year-old male who is well known to this ED, who presents to the ED s/p fall today. Pt was seen in the ED yesterday for alcohol intoxication. Pt denies consuming alcohol since he was discharged yesterday. He states that he tripped, fell, and landed on his face. He denies having any symptoms at this time. <Nina Rae - Last Filed: 01/16/17 02:26> <Jacob Bertrand - Last Filed: 01/16/17 05:38> - General Chief Complaint: Pain Stated Complaint: FALL Time Seen by Provider: 01/16/17 02:09 Past History <Nina Rae - Last Filed: 01/16/17 02:26> - Past Medical History Anemia: No Asthma: No Cancer: Yes (mesothelioma) Cardiac Disorders: No CVA: No COPD: No CHF: No Dementia: No Diabetes: No GI Disorders: No Disorders: No HTN: Yes (no med) Hypercholesterolemia: No Kidney Stones: No Liver Disease: No Psychiatric Problems: Yes (alcoholism) Suicide Attempt (Hx): No Seizures: No Thyroid Disease: No - Surgical History Abdominal Surgery: No Appendectomy: No Cardiac Surgery: No Cholecystectomy: No Lung Surgery: No Neurologic Surgery: No Orthopedic Surgery: No - Family Disease History Family Disease History: CA: Mother - Reproductive History Testicular Surgery: No - Immunization History TDAP Vaccination: Yes Immunization Up to Date: Yes - Psycho/Social/Smoking Cessation Hx Anxiety: No Suicidal Ideation: No Smoking Status: No Smoking History: Unknown if ever smoked Have you smoked in the past 12 months: No Number of Cigarettes Smoked Daily: 0 Cigars Per Day: 0 Information on smoking cessation initiated: No 'Breaking Loose' booklet given: 11/02/16 Hx Alcohol Use: Yes Drug/Substance Use Hx: No Substance Use Type: Alcohol Hx Substance Use Treatment: Yes ([facility] 11/02/16 to 11/05/16) <Jacob Bertrand - Last Filed: 01/16/17 05:38> - Past Medical History Allergies/Adverse Reactions: Allergies Allergy/AdvReac Type Severity Reaction Status Date / Time Fish Containing Products Allergy Mild Verified 01/15/17 22:33 No Known Drug Allergies Allergy Verified 01/15/17 22:33 Home Medications: Ambulatory Orders NK [No Known Home Medication] 01/15/17 Review of Systems - Review of Systems Able to Perform ROS?: Yes Comments:: 01/16/17 02:28 GENERAL/CONSTITUTIONAL: No fever or chills. No weakness. HEAD, EYES, EARS, NOSE AND THROAT: No change in vision. No ear pain or discharge. No sore throat. CARDIOVASCULAR: No chest pain or shortness of breath. RESPIRATORY: No cough, wheezing, or hemoptysis. GASTROINTESTINAL: No nausea, vomiting, diarrhea or constipation. GENITOURINARY: No dysuria, frequency, or change in urination. MUSCULOSKELETAL: No joint or muscle swelling or pain. No neck or back pain. SKIN: No rash NEUROLOGIC: No headache, vertigo, loss of consciousness, or change in strength/ sensation. ENDOCRINE: No increased thirst. No abnormal weight change. HEMATOLOGIC/LYMPHATIC: No anemia, easy bleeding, or history of blood clots. ALLERGIC/IMMUNOLOGIC: No hives or skin allergy. <Nina Rae - Last Filed: 01/16/17 02:26> *Physical Exam - Vital Signs Last Vital Signs Temp Pulse Resp BP Pulse Ox 98.3 F 98 H 20 106/55 97 01/15/17 22:33 01/15/17 22:33 01/15/17 22:33 01/15/17 22:33 01/15/17 22:33 - Physical Exam Comments: 01/16/17 02:28 GENERAL: Awake, alert, and fully oriented, in no acute distress HEAD: No signs of trauma EYES: PERRLA, EOMI, sclera anicteric, conjunctiva clear ENT: Auricles normal inspection, hearing grossly normal, nares patent, oropharynx clear without exudates. Moist mucosa NECK: Normal ROM, supple, no lymphadenopathy, JVD, or masses LUNGS: Breath sounds equal, clear to auscultation bilaterally. No wheezes, and no crackles HEART: Regular rate and rhythm, normal S1 and S2, no murmurs, rubs or gallops ABDOMEN: Soft, nontender, normoactive bowel sounds. No guarding, no rebound. No masses EXTREMITIES: Normal range of motion, no edema. No clubbing or cyanosis. No cords, erythema, or tenderness NEUROLOGICAL: Cranial nerves II through XII grossly intact. SKIN: Warm, Dry, normal turgor, no rashes or lesions noted <Nina Rae - Last Filed: 01/16/17 02:26> - Vital Signs Last Vital Signs Temp Pulse Resp BP Pulse Ox 98.3 F 98 H 20 106/55 97 01/15/17 22:33 01/15/17 22:33 01/15/17 22:33 01/15/17 22:33 01/15/17 22:33 <Jacob Bertrand - Last Filed: 01/16/17 05:38> *DC/Admit/Observation/Transfer - Attestations Scribe Attestion: 01/16/17 02:29 Documentation prepared by Nina Rae, acting as medical care manager for Jacob Bertrand MD. <Nina Rae - Last Filed: 01/16/17 02:26> - Discharge Dispostion Admit: No - Attestations Physician Attestion: 01/16/17 02:10 I, Dr. Jacob Bertradn, attest that this document has been prepared under my direction and personally reviewed by me in its entirety. I further attest, that it accurately reflects all work, treatment, procedures and medical decision -making performed by me. <Jacob Bertrand - Last Filed: 01/16/17 05:38> Diagnosis at time of Disposition: Alcohol abuse with intoxication Contusion of face Qualifiers: Encounter type: initial encounter Qualified Code(s): S00.83XA - Contusion of other part of head, initial encounter - Discharge Dispostion Disposition: HOME Condition at time of disposition: Good - Patient Instructions Additional Instructions: RETURN IF ANY PROBLEMS
== END 2017-01-16 05:30 | disposition home or self-care (01) ==
LOC: JER 22:21
DX: F10.129 Alcohol abuse with intoxication, unspecified (principal); S00.83XS Contusion of other part of head, sequela; C45.9 Mesothelioma, unspecified; I10 Essential (primary) hypertension; Z59.0 Homelessness; W01.0XXA Fall on same level from slipping, tripping and stumbling without subsequent striking against object, initial encounter; Y93.9 Activity, unspecified; Y92.9 Unspecified place or not applicable
CPT/HCPCS: 70450-TC; 70486-TC; 99281-25

== ENCOUNTER 2017-01-17 15:55 | Emergency (ER) | payer OTHER ==
[2017-01-17 16:05] VITALS: BMI 33.0
--- NOTE | 2017-01-17 16:22 | PDOC ---
History of Present Illness - History of Present Illness Initial Comments: 01/17/17 16:10 Mr. De Leon is a 62 yo male with a significant past medical history of alcohol abuse who presents to the emergency department following a fall yesterday. He reports tripping over a brick and going to [facility] for care but left AMA when they wanted to put a collar on his neck. He called EMS today when he had continued mid back pain and neck pain. The patient denies chest pain, shortness of breath, headache and dizziness. Denies fever, chills, nausea, vomit, diarrhea and constipation. Denies dysuria, frequency, urgency and hematuria. Allergies: NKDA Social history:Denies tobacco or illicit drug use. Endorses drinking. 01/17/17 19:09 <Kelvin Kee - Last Filed: 01/17/17 19:08> <Robson Ball - Last Filed: 01/17/17 19:38> - General Stated Complaint: BACK PAIN Time Seen by Provider: 01/17/17 16:04 Past History - Past Medical History Anemia: No Asthma: No Cancer: Yes (mesothelioma) Cardiac Disorders: No CVA: No COPD: No CHF: No Dementia: No Diabetes: No GI Disorders: No Disorders: No HTN: Yes (no med) Hypercholesterolemia: No Kidney Stones: No Liver Disease: No Psychiatric Problems: Yes (alcoholism) Suicide Attempt (Hx): No Seizures: No Thyroid Disease: No - Surgical History Abdominal Surgery: No Appendectomy: No Cardiac Surgery: No Cholecystectomy: No Lung Surgery: No Neurologic Surgery: No Orthopedic Surgery: No - Family Disease History Family Disease History: CA: Mother - Reproductive History Testicular Surgery: No - Immunization History TDAP Vaccination: Yes Immunization Up to Date: Yes - Psycho/Social/Smoking Cessation Hx Anxiety: No Suicidal Ideation: No Smoking Status: No Smoking History: Never smoked Have you smoked in the past 12 months: No Number of Cigarettes Smoked Daily: 0 Cigars Per Day: 0 Information on smoking cessation initiated: No 'Breaking Loose' booklet given: 11/02/16 Hx Alcohol Use: Yes Drug/Substance Use Hx: No Substance Use Type: Alcohol Hx Substance Use Treatment: Yes ([facility] 11/02/16 to 11/05/16) <Kelvin Kee - Last Filed: 01/17/17 19:08> <Joyce Ballis - Last Filed: 01/17/17 19:38> - Past Medical History Allergies/Adverse Reactions: Allergies Allergy/AdvReac Type Severity Reaction Status Date / Time Fish Containing Products Allergy Mild Verified 01/15/17 22:33 No Known Drug Allergies Allergy Verified 01/15/17 22:33 Home Medications: Ambulatory Orders NK [No Known Home Medication] 01/15/17 Review of Systems - Review of Systems Comments:: 01/17/17 16:09 GENERAL/CONSTITUTIONAL: No fever or chills. No weakness. HEAD, EYES, EARS, NOSE AND THROAT: No change in vision. No ear pain or discharge. No sore throat. CARDIOVASCULAR: No chest pain or shortness of breath RESPIRATORY: +Some wheezes - patient endorses history of mesothelioma and fibrosis in R lung. No cough, or hemoptysis. GASTROINTESTINAL: No nausea, vomiting, diarrhea or constipation. GENITOURINARY: No dysuria, frequency, or change in urination. MUSCULOSKELETAL: +Neck pain central. +Mid back pain. No joint or muscle swelling or pain. SKIN: No rash NEUROLOGIC: +Endorses headache. No vertigo, loss of consciousness, or change in strength/sensation. ENDOCRINE: No increased thirst. No abnormal weight change HEMATOLOGIC/LYMPHATIC: No anemia, easy bleeding, or history of blood clots. ALLERGIC/IMMUNOLOGIC: No hives or skin allergy. <Kelvin Kee - Last Filed: 01/17/17 19:08> *Physical Exam - Vital Signs Last Vital Signs Temp Pulse Resp BP Pulse Ox 99.2 F 98 H 20 113/68 93 L 01/17/17 15:58 01/17/17 15:58 01/17/17 15:58 01/17/17 15:58 01/17/17 15:58 - Physical Exam Comments: 01/17/17 16:10 GENERAL: +Patient reports midback pain and is tender to palpation. AOx3. No weakness HEAD: Mild abbrasion noted above L eyebrow. EYES: PERRL. EOMI. NECK: Tenderness noted midline. LUNGS: C2A Bilaterally HEART: No murmurs, rubs, or gallops. Regular Rate and Rhythm. ABDOMEN: Soft, nontender. No masses. EXTREMITIES: No abnormalities noted. No weakness. NEUROLOGICAL: No acute deficits. SKIN: No rashes or patches noted. <Kelvin Kee - Last Filed: 01/17/17 19:08> - Vital Signs Last Vital Signs Temp Pulse Resp BP Pulse Ox 99.2 F 98 H 20 113/68 93 L 01/17/17 15:58 01/17/17 15:58 01/17/17 15:58 01/17/17 15:58 01/17/17 15:58 <Robson Ball - Last Filed: 01/17/17 19:38> ED Treatment Course - LABORATORY CBC & Chemistry Diagram: 01/17/17 16:50 01/17/17 16:50 <Kelvin Kee - Last Filed: 01/17/17 19:08> - LABORATORY CBC & Chemistry Diagram: 01/17/17 16:50 01/17/17 16:50 - ADDITIONAL ORDERS Additional order review: Laboratory Results 01/17/17 01/17/17 01/17/17 16:50 16:50 16:27 Sodium 142 Potassium 3.8 Chloride 106 Carbon Dioxide 29 Anion Gap 7 L BUN 10 D Creatinine 0.8 D Creat Clearance w eGFR > 60 POC Glucometer [id number] Random Glucose 96 D Calcium 8.9 Magnesium 2.0 Total Bilirubin 0.7 D AST 78 H ALT 50 Alkaline Phosphatase 154 H D Total Protein 6.5 D Albumin 2.9 L D Alcohol, Quantitative < 5.0 01/17/17 01/17/17 16:50 16:27 RBC 3.10 L MCV 104.2 H MCHC 33.4 RDW 15.8 MPV 7.9 Neutrophils % 80.5 Lymphocytes % 11.1 Monocytes % 5.9 Eosinophils % 1.4 Basophils % 1.1 POC Glucometer [phone] <Robson Ball - Last Filed: 01/17/17 19:38> Medical Decision Making - Medical Decision Making 01/17/17 19:10 Mr. De Leon presented for evaluation of back pain after leaving [place] from [facility] yesterday as he refused to wear a c-collar after his fall. He has midline neck tenderness so will get Head/neck CT as well as thoracic and chest XR. Labs drawn as well as alcohol levels. Dr. Ball will follow-up patient care. <Kelvin Kee - Last Filed: 01/17/17 19:08> *DC/Admit/Observation/Transfer - Attestations Physician Attestion: 01/17/17 19:14 I, Dr. Kelvin Kee, attest that this document has been prepared under my direction and personally reviewed by me in its entirety. I further attest, that it accurately reflects all work, treatment, procedures and medical decision -making performed by me. <Kelvin Kee - Last Filed: 01/17/17 19:08> <Robson Ball - Last Filed: 01/17/17 19:38> Diagnosis at time of Disposition: Back pain Qualifiers: Back pain location: low back pain Chronicity: acute Back pain laterality: midline Sciatica presence: without sciatica Qualified Code(s): M54.5 - Low back pain Fall from standing Qualifiers: Encounter type: initial encounter Qualified Code(s): W19.XXXA - Unspecified fall, initial encounter Acute head injury Qualifiers: Encounter type: initial encounter Qualified Code(s): S09.90XA - Unspecified injury of head, initial encounter - Discharge Dispostion Disposition: HOME Condition at time of disposition: Stable - Referrals Referrals: [facility] [Provider Group] - Patient Instructions Printed Discharge Instructions: DI for Closed Head Injury
[2017-01-17] MEDS ORDERED: DEXTROSE 5%-NORMAL SALINE 500 ML IV ONE (16:51)
[2017-01-17 16:59] LABS: BASOPHIL 1.1 % (0-2.0); EOSINOPHIL 1.4 % (0-4.5); MCH 34.9 pg (25.7-33.7); MCHC 33.4 g/dl (32.0-35.9); MEAN CELL VOLUME 104.2 fl (80-96); MEAN PLT VOLUME 7.9 fl (7.5-11.1); NEUTROPHILS 80.5 % (42.8-82.8); PLATELET COUNT 535 K/MM3 (134-434); RDW 15.8 % (11.9-15.9); WHITE BLOOD COUNT 12.8 K/mm3 (4.0-10.0)
[2017-01-17] MEDS ORDERED: DEXTROSE 5%-LACTATED RINGERS 500 ML IV SCH (17:15)
[2017-01-17 17:27] LABS: ALBUMIN 2.9 g/dl (3.4-5.0); ANION GAP 7 (8-16); CALCIUM 8.9 mg/dL (8.5-10.1); CO2 29 mmol/L (21-32); CREATININE 0.8 mg/dL (0.7-1.3); GLUCOSE,RANDOM 96 mg/dL (74-106); SGOT/AST 78 U/L (15-37); SGPT/ALT 50 U/L (12-78)
[2017-01-17 17:28] LABS: ALK PHOS 154 U/L (45-117); BILIRUBIN,TOTAL 0.7 mg/dL (0.2-1.0); TOT PROT 6.5 g/dl (6.4-8.2)
--- NOTE | 2017-01-17 19:36 | PDOC ---
Attending Attestation - Resident Resident Name: Koryjose danielKelvin chu - ED Attending Attestation I have performed the following: I have examined & evaluated the patient, The case was reviewed & discussed with the resident, I agree w/resident's findings & plan, Exceptions are as noted - HPI HPI: 01/17/17 19:30 Patient is 62-year-old male with alcohol abuse, well-known to this M.D. who presents by EMS after a witnessed fall from standing without associated LOC. Patient complains of mild headache, neck pain and mid thoracic back pain. Patient denies nausea/vomiting/weakness/paresthesias of extremities. - Physicial Exam PE: 01/17/17 19:31 Patient is awake and alert, GCS-15; + 1 cm stellate laceration above left eyebrow that appears to been repaired primarily; there is no bony crepitus or step-offs. Extraocular movements are intact; PERRLA; there is mild diffuse midline and paraspinal cervical tenderness; lungs are clear to auscultation; there is midline and paraspinal tenderness along the entire length of the thoracic spine; pelvis is stable; full range of motion at the hip/ankle/knees bilaterally; patient is able to ambulate without assistance of a cane. - Medical Decision Making 01/17/17 19:36 Patient 62-year-old male with history of a cold abuse, mesothelioma presents to the ER status post mechanical fall. In the ER, no focal neurological deficits are noted. CT of head shows no evidence of acute intracranial pathology. CT of cervical spine reveals no evidence of fracture dislocation. Thoracic spine x- ray reveals no evidence of compression fracture at this time. There is no evidence of pneumothorax or rib fractures. Patient is able to tolerate by mouth and is able to ambulate with assistance of a cane. Will discharge.
[2017-01-17 19:47] VITALS: BP 120/64; PULSE 72; TEMP 98.1
== END 2017-01-17 19:39 | disposition home or self-care (01) ==
LOC: JER 15:55
DX: S09.90XA Unspecified injury of head, initial encounter (principal); M54.5 Low back pain; W01.0XXA Fall on same level from slipping, tripping and stumbling without subsequent striking against object, initial encounter; Y93.9 Activity, unspecified; Y92.9 Unspecified place or not applicable; F10.10 Alcohol abuse, uncomplicated; I10 Essential (primary) hypertension; Z91.013 Allergy to seafood; C45.9 Mesothelioma, unspecified; Z59.0 Homelessness
CPT/HCPCS: 36415; 70450-TC; 71010-TC; 72070-TC; 72125-TC; 80053; 80307; 83735; 85025; 99282-25

== ENCOUNTER 2017-01-19 18:52 | Emergency (ER) | payer OTHER ==
[2017-01-19 18:58] VITALS: BP 114/57; PULSE 96; TEMP 98.5; BMI 27.3
[2017-01-19] MEDS ORDERED: IBUPROFEN 600 MG TABLET (FP) PO ONE (20:09)
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
== END 2017-01-19 22:03 | disposition home or self-care (01) ==
LOC: JER 18:52
DX: M54.5 Low back pain (principal); F10.10 Alcohol abuse, uncomplicated; I10 Essential (primary) hypertension; Z91.013 Allergy to seafood; C45.9 Mesothelioma, unspecified; Z59.0 Homelessness
CPT/HCPCS: 72100-TC; 99283-25

== ENCOUNTER 2017-01-24 16:57 | Emergency (ER) | payer OTHER ==
--- NOTE | 2017-01-24 17:07 | PDOC ---
Attending Attestation - Resident Resident Name: Smith Dunbar - HPI HPI: 01/25/17 09:49 Pt presents to the ED intoxicatd without signs or history of trauma. - Physicial Exam PE: 01/25/17 09:49 Agree with above exam. Ambulatory in the ED with normal gait. - Medical Decision Making 01/25/17 09:50 Pt presents to the ED without signs or history of trauma. Ambulatory in the ED with steady gait. will discharge home.
[2017-01-24 17:10] VITALS: TEMP 98.9; BMI 33.0
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
[2017-01-24] MEDS ORDERED: ACETAMINOPHEN 325 MG TABLET (FP) PO ONE (19:14)
[2017-01-24] MEDS ORDERED: ACETAMINOPHEN 325 MG TABLET (FP) ONE (19:19)
[2017-01-24 19:26] VITALS: BP 115/81; PULSE 90
== END 2017-01-24 19:52 | disposition home or self-care (01) ==
LOC: JER 16:57
DX: F10.120 Alcohol abuse with intoxication, uncomplicated (principal); C45.9 Mesothelioma, unspecified
CPT/HCPCS: 99282-25

== ENCOUNTER 2017-01-26 21:50 | Emergency (ER) | payer OTHER ==
[2017-01-26 22:03] VITALS: BMI 33.0
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
[2017-01-26] MEDS: POTASSIUM CHLORIDE ORAL LIQUID 20 MEQ/15 ML PO ONE ×2 (23:03→23:53)
[2017-01-27 04:26] VITALS: TEMP 99
[2017-01-27] MEDS ORDERED: chlordiazePOXIDE HCL 25 MG CAPSULE PO ONE (04:47)
[2017-01-27 05:56] VITALS: BP 142/76; PULSE 88
== END 2017-01-27 06:29 | disposition home or self-care (01) ==
LOC: JER 21:50
DX: F10.120 Alcohol abuse with intoxication, uncomplicated (principal); S09.90XA Unspecified injury of head, initial encounter
CPT/HCPCS: 70450-TC; 72125-TC; 99282-25

== ENCOUNTER 2017-01-30 21:17 | Emergency (ER) | payer OTHER ==
[2017-01-30 21:27] VITALS: TEMP 97.7; BMI 33.0
[2017-01-30] MEDS ORDERED: CEFAZOLIN 1 GM in DEXTROSE 5%-WATER - 50 ML IVPB ONE (23:00)
--- NOTE | 2017-01-30 23:00 | PDOC ---
History of Present Illness - General History Source: Patient Exam Limitations: No Limitations - History of Present Illness Initial Comments: 01/30/17 23:19 Patient is a 62 year old male with a history of mesothelioma and alcohol abuse well known to the ED who presents via EMS with alcohol intoxication, back pain and left shoulder pain today. The patient states that he was found sleeping on the ground. He does note pain and swelling to his left arm. Pt was last seen in the ED on 01/26/17 s/p fall, sustaining a laceration to the back of his head. Pt s laceration was stapled. Bayard have been removed and wound appears to have healed well. He denies any fever, chills, nausea, vomiting, diarrhea, or abdominal pain. He denies any chest pain or shortness of breath. <Nina Rae - Last Filed: 01/30/17 23:19> <Lorri Kumar - Last Filed: 01/31/17 06:52> - General Chief Complaint: Pain Stated Complaint: INTOXICATION Time Seen by Provider: 01/30/17 22:12 Past History <Nina Rae - Last Filed: 01/30/17 23:19> - Past Medical History Anemia: No Asthma: No Cancer: Yes (mesothelioma) Cardiac Disorders: No CVA: No COPD: No CHF: No Dementia: No Diabetes: No GI Disorders: No Disorders: No HTN: Yes (no med) Hypercholesterolemia: No Kidney Stones: No Liver Disease: No Psychiatric Problems: Yes (alcoholism) Suicide Attempt (Hx): No Seizures: No Thyroid Disease: No - Surgical History Abdominal Surgery: No Appendectomy: No Cardiac Surgery: No Cholecystectomy: No Lung Surgery: No Neurologic Surgery: No Orthopedic Surgery: No - Family Disease History Family Disease History: CA: Mother - Reproductive History Testicular Surgery: No - Immunization History TDAP Vaccination: Yes Immunization Up to Date: Yes - Psycho/Social/Smoking Cessation Hx Anxiety: No Suicidal Ideation: No Smoking Status: No Smoking History: Never smoked Have you smoked in the past 12 months: No Number of Cigarettes Smoked Daily: 0 Cigars Per Day: 0 Information on smoking cessation initiated: No 'Breaking Loose' booklet given: 11/02/16 Hx Alcohol Use: No Drug/Substance Use Hx: No Substance Use Type: Alcohol Hx Substance Use Treatment: Yes ([facility] 11/02/16 to 11/05/16) <Lorri Kumar - Last Filed: 01/31/17 06:52> - Past Medical History Allergies/Adverse Reactions: Allergies Allergy/AdvReac Type Severity Reaction Status Date / Time Fish Containing Products Allergy Mild Verified 01/30/17 21:23 No Known Drug Allergies Allergy Verified 01/30/17 21:23 Home Medications: Ambulatory Orders NK [No Known Home Medication] 01/15/17 Review of Systems - Review of Systems Able to Perform ROS?: Yes Comments:: 01/30/17 23:20 GENERAL/CONSTITUTIONAL: No fever or chills. No weakness. HEAD, EYES, EARS, NOSE AND THROAT: No change in vision. No ear pain or discharge. No sore throat. CARDIOVASCULAR: No chest pain or shortness of breath. RESPIRATORY: No cough, wheezing, or hemoptysis. GASTROINTESTINAL: No nausea, vomiting, diarrhea or constipation. GENITOURINARY: No dysuria, frequency, or change in urination. MUSCULOSKELETAL: (+)Back pain, left shoulder/arm pain. No joint swelling or pain. No neck pain. SKIN: No rash NEUROLOGIC: No headache, vertigo, loss of consciousness, or change in strength/ sensation. ENDOCRINE: No increased thirst. No abnormal weight change. HEMATOLOGIC/LYMPHATIC: No anemia, easy bleeding, or history of blood clots. ALLERGIC/IMMUNOLOGIC: No hives or skin allergy. <Nina Rae - Last Filed: 01/30/17 23:19> *Physical Exam - Vital Signs Last Vital Signs Temp Pulse Resp BP Pulse Ox 97.7 F 88 18 122/84 97 01/30/17 21:24 01/30/17 21:24 01/30/17 21:24 01/30/17 21:24 01/30/17 21:24 - Physical Exam Comments: 01/30/17 23:23 GENERAL: Awake, alert, and fully oriented, in no acute distress HEAD: No signs of trauma EYES: PERRLA, EOMI, sclera anicteric, conjunctiva clear ENT: Auricles normal inspection, hearing grossly normal, nares patent, oropharynx clear without exudates. Moist mucosa NECK: Normal ROM, supple, no lymphadenopathy, JVD, or masses LUNGS: Breath sounds equal, clear to auscultation bilaterally. No wheezes, and no crackles HEART: Regular rate and rhythm, normal S1 and S2, no murmurs, rubs or gallops ABDOMEN: Soft, nontender, normoactive bowel sounds. No guarding, no rebound. No masses EXTREMITIES: (+)6.5 cm x 4 cm area of erythema/swelling of the left lateral forearm. Normal range of motion. No clubbing or cyanosis. No cords. NEUROLOGICAL: Cranial nerves II through XII grossly intact. SKIN: Warm, Dry, normal turgor. <Nina Rae - Last Filed: 01/30/17 23:19> - Vital Signs Last Vital Signs Temp Pulse Resp BP Pulse Ox 97.7 F 88 18 122/84 97 01/30/17 21:24 01/30/17 21:24 01/30/17 21:24 01/30/17 21:24 01/30/17 21:24 <Lorri Kumar - Last Filed: 01/31/17 06:52> ED Treatment Course - LABORATORY CBC & Chemistry Diagram: 01/30/17 23:24 01/30/17 23:24 <Lorri Kumar - Last Filed: 01/31/17 06:52> Medical Decision Making - Medical Decision Making 01/31/17 06:46 Pt comes with alcohol abuse and with complaint of back pain. Ambulating about and asking for food to eat. Pt was found to have a red patch on his forearm - possible cellulitis. Pt had labs checked and he was given a dose of abx. Case d/w admitting hospitalist team, but they feel that in light of pt's bright red patch, and the likelihood that he doesn't have cellulitis, as WBC is normal , and all labs are normal, they feel pt doesn't require admission or abx at this time. Pt will be asked to follow up with PMD or clinic to follow the erythematous skin patch on the left lateral arm. Pt is stable for discharge at this time. CXR is unchanged from previous - uncoiled aorta Arm XR shows no gas in tissues or broken bones. <Lorri Kumar - Last Filed: 01/31/17 06:52> *DC/Admit/Observation/Transfer - Attestations Scribe Attestion: 01/30/17 23:25 Documentation prepared by Nina Rae, acting as medical records technician for Lorri Kumar MD. <Nina Rae - Last Filed: 01/30/17 23:19> - Discharge Dispostion Admit: No <Lorri Kumar - Last Filed: 01/31/17 06:52> Diagnosis at time of Disposition: Alcohol abuse - Discharge Dispostion Disposition: HOME Condition at time of disposition: Stable - Patient Instructions Printed Discharge Instructions: DI for Alcohol Abuse
[2017-01-31 00:08] LABS: BASOPHIL 0.8 % (0-2.0); EOSINOPHIL 2.4 % (0-4.5); MCH 34.8 pg (25.7-33.7); MCHC 33.3 g/dl (32.0-35.9); MEAN CELL VOLUME 104.2 fl (80-96); MEAN PLT VOLUME 7.9 fl (7.5-11.1); NEUTROPHILS 61.1 % (42.8-82.8); PLATELET COUNT 320 K/MM3 (134-434); RDW 15.4 % (11.9-15.9); WHITE BLOOD COUNT 6.7 K/mm3 (4.0-10.0)
[2017-01-31 00:32] LABS: ALBUMIN 3.2 g/dl (3.4-5.0); ALK PHOS 192 U/L (45-117); ANION GAP 11 (8-16); CALCIUM 8.5 mg/dL (8.5-10.1); CO2 30 mmol/L (21-32); CREATININE 0.6 mg/dL (0.7-1.3); GLUCOSE,RANDOM 84 mg/dL (74-106); SGPT/ALT 30 U/L (12-78); TOT PROT 6.6 g/dl (6.4-8.2)
[2017-01-31 00:41] LABS: SGOT/AST 61 U/L (15-37)
[2017-01-31 05:28] VITALS: BP 126/76; PULSE 85
--- NOTE | 2017-01-31 18:38 | EKG ---
Test Reason : Blood Pressure : / mmHG Vent. Rate : 089 BPM Atrial Rate : 089 BPM P-R Int : 170 ms QRS Dur : 096 ms QT Int : 400 ms P-R-T Axes : 026 -43 040 degrees QTc Int : 486 ms SINUS RHYTHM WITH PREMATURE ATRIAL COMPLEXES LEFT AXIS DEVIATION SEPTAL INFARCT , AGE UNDETERMINED ABNORMAL ECG WHEN COMPARED WITH ECG OF 06-JAN-2017 16:07, PREMATURE VENTRICULAR COMPLEXES ARE NO LONGER PRESENT PREMATURE ATRIAL COMPLEXES ARE NOW PRESENT SEPTAL INFARCT IS NOW PRESENT NONSPECIFIC T WAVE ABNORMALITY, IMPROVED IN INFERIOR LEADS NONSPECIFIC T WAVE ABNORMALITY, IMPROVED IN LATERAL LEADS Confirmed by RAY VENEGAS MD ([id number]) on 01/31/2017 6:37:49 PM Referred By: Confirmed By:RAY VENEGAS MD
== END 2017-01-31 06:52 | disposition home or self-care (01) ==
LOC: JER 21:17
DX: F10.220 Alcohol dependence with intoxication, uncomplicated (principal); C45.9 Mesothelioma, unspecified; Z59.0 Homelessness; L53.9 Erythematous condition, unspecified
CPT/HCPCS: 36415; 71010-TC; 73090-TC-LT; 80053; 85025; 93005; 93010; 99282-25

== ENCOUNTER 2017-02-04 15:12 | Emergency (ER) | payer OTHER ==
--- NOTE | 2017-02-04 15:48 | PDOC ---
History of Present Illness - General Chief Complaint: Alcohol intoxication Stated Complaint: Alcohol intoxication Time Seen by Provider: 02/04/17 15:45 History Source: Patient Exam Limitations: Intoxication - History of Present Illness Initial Comments: CHIEF COMPLAINT: 62 y/o afebrile male with PMH mesothelioma, COPD and ETOH abuse, well known to this ER for multiple visits for ETOH abuse, BIB EMS here for intoxication. HISTORY OF PRESENT ILLNESS: The patient is awake and is asking for food. He is slurring his words and denies pain. Vital signs on arrival are within normal limits. REVIEW OF SYSTEMS: GENERAL/CONSTITUTIONAL: No fever/chills. HEAD, EYES, EARS, NOSE AND THROAT: No change in vision. No sore throat. CARDIOVASCULAR: No chest pain or shortness of breath. RESPIRATORY: No cough, wheezing, or hemoptysis. GASTROINTESTINAL: No abd pain, nausea, vomiting, diarrhea. MUSCULOSKELETAL: No joint or muscle swelling or pain. No neck or back pain. NEUROLOGIC: No headache. PHYSICAL EXAM: GENERAL: The patient is awake with ETOH on breath. He is fully oriented but slurring his words. HEAD: Normal with no signs of trauma. ENT: Pupils equal, round and reactive to light, extraocular movements intact, sclera anicteric, conjunctiva clear. Neck supple. LUNGS: Clear to auscultation bilaterally. Normal excursion. No respiratory distress or use of accessory muscles. CV: RRR, S1/S2, no MRG. Cap refill < 2 sec. ABDOMEN: Soft, non-distended, non-tender. EXTREMITIES: Normal range of motion, no edema. Left forearm wound, currently covered with gauze NEUROLOGICAL: Slurred speech. Gait not assessed in the ER. SKIN: Warm, dry, normal turgor, no rashes or lesions noted. Past History - Past Medical History Allergies/Adverse Reactions: Allergies Allergy/AdvReac Type Severity Reaction Status Date / Time Fish Containing Products Allergy Mild Verified 02/04/17 15:39 No Known Drug Allergies Allergy Verified 02/04/17 15:39 Home Medications: Ambulatory Orders NK [No Known Home Medication] 01/15/17 Anemia: No Asthma: No Cancer: Yes (mesothelioma) Cardiac Disorders: No CVA: No COPD: No CHF: No Dementia: No Diabetes: No GI Disorders: No Disorders: No HTN: Yes (no med) Hypercholesterolemia: No Kidney Stones: No Liver Disease: No Psychiatric Problems: Yes (alcoholism) Suicide Attempt (Hx): No Seizures: No Thyroid Disease: No - Surgical History Abdominal Surgery: No Appendectomy: No Cardiac Surgery: No Cholecystectomy: No Lung Surgery: No Neurologic Surgery: No Orthopedic Surgery: No - Family Disease History Family Disease History: CA: Mother - Reproductive History Testicular Surgery: No - Immunization History TDAP Vaccination: Yes Immunization Up to Date: Yes - Psycho/Social/Smoking Cessation Hx Anxiety: No Suicidal Ideation: No Smoking Status: No Smoking History: Never smoked Have you smoked in the past 12 months: No Number of Cigarettes Smoked Daily: 0 Cigars Per Day: 0 Information on smoking cessation initiated: No 'Breaking Loose' booklet given: 11/02/16 Hx Alcohol Use: Yes Drug/Substance Use Hx: No Substance Use Type: Alcohol Hx Substance Use Treatment: Yes ([facility] 11/02/16 to 11/05/16) *Physical Exam - Vital Signs Last Vital Signs Temp Pulse Resp BP Pulse Ox 98.6 F 78 18 108/64 96 02/04/17 15:39 02/04/17 15:39 02/04/17 15:39 02/04/17 15:39 02/04/17 15:39 Medical Decision Making - Medical Decision Making A/P: 62 y/o afebrile male, well known to this ER for multiple visits for ETOH abuse, BIB EMS for intoxication. The patient is awake with slurred speech asking for food. Will observe in the ER until sober. The patient has eaten in the ER and is now pacing up and down the halls with normal gait. He wants to be discharged. Instructed the patient to return to the ER with any worsening or concerning symptoms. *DC/Admit/Observation/Transfer Diagnosis at time of Disposition: Alcohol intoxication - Discharge Dispostion Disposition: HOME Condition at time of disposition: Stable - Patient Instructions Printed Discharge Instructions: DI for Alcohol Abuse Additional Instructions: Return to the ER with any worsening or concerning symptoms
[2017-02-04 15:49] VITALS: TEMP 98.6; BMI 36.3
[2017-02-04 18:58] VITALS: BP 112/64; PULSE 75
== END 2017-02-04 18:58 | disposition home or self-care (01) ==
LOC: JER 15:12
DX: F10.220 Alcohol dependence with intoxication, uncomplicated (principal); I10 Essential (primary) hypertension; C45.9 Mesothelioma, unspecified; Z59.0 Homelessness
CPT/HCPCS: 99283-25

== ENCOUNTER 2017-02-04 22:44 | Emergency (ER) | payer OTHER ==
[2017-02-04 23:47] VITALS: BP 133/80; PULSE 82; TEMP 97; BMI 31.5
--- NOTE | 2017-02-05 01:11 | PDOC ---
History of Present Illness - General History Source: Patient Exam Limitations: Intoxication - History of Present Illness Initial Comments: 02/05/17 01:29 The patient is 62 year old male, well known to this ED, with a significant past medical history of hypertension, mesothelioma and alcohol abuse, who presents to the ED complaining of a wound to the left arm s/p unknown trauma. Patient reports he does not remember how he sustained the laceration. Patient reports associated left arm pain. He denies any other trauma, fever, or chills. He denies any nausea, vomiting, diarrhea, or constipation. Per records, patient last received a tetanus shot on 01/06/17 s/p head injury. <Marjorie Yarbrough - Last Filed: 02/05/17 01:56> <Robson Ball - Last Filed: 02/05/17 02:25> - General Chief Complaint: Wound Infection Stated Complaint: Wound Infection/Intoxication Time Seen by Provider: 02/05/17 00:32 Past History <Marjorie Yarbrough - Last Filed: 02/05/17 01:56> - Past Medical History Anemia: No Asthma: No Cancer: Yes (mesothelioma) Cardiac Disorders: No CVA: No COPD: No CHF: No Dementia: No Diabetes: No GI Disorders: No Disorders: No HTN: Yes (no med) Hypercholesterolemia: No Kidney Stones: No Liver Disease: No Psychiatric Problems: Yes (alcoholism) Suicide Attempt (Hx): No Seizures: No Thyroid Disease: No - Surgical History Abdominal Surgery: No Appendectomy: No Cardiac Surgery: No Cholecystectomy: No Lung Surgery: No Neurologic Surgery: No Orthopedic Surgery: No - Family Disease History Family Disease History: CA: Mother - Reproductive History Testicular Surgery: No - Immunization History TDAP Vaccination: Yes Immunization Up to Date: Yes - Psycho/Social/Smoking Cessation Hx Anxiety: No Suicidal Ideation: No Smoking Status: No Smoking History: Never smoked Have you smoked in the past 12 months: No Number of Cigarettes Smoked Daily: 0 Cigars Per Day: 0 Information on smoking cessation initiated: No 'Breaking Loose' booklet given: 11/02/16 Hx Alcohol Use: Yes Drug/Substance Use Hx: No Substance Use Type: Alcohol Hx Substance Use Treatment: Yes ([facility] 11/02/16 to 11/05/16) <Robson Ball - Last Filed: 02/05/17 02:25> - Past Medical History Allergies/Adverse Reactions: Allergies Allergy/AdvReac Type Severity Reaction Status Date / Time Fish Containing Products Allergy Mild Verified 02/04/17 23:45 No Known Drug Allergies Allergy Verified 02/04/17 23:45 Home Medications: Ambulatory Orders NK [No Known Home Medication] 01/15/17 Review of Systems - Review of Systems Able to Perform ROS?: Yes Comments:: 02/05/17 01:29 CONSTITUTIONAL: No fever, no chills, no fatigue EYES: No visual changes ENT: No ear pain, no sore throat CARDIOVASCULAR: No chest pain, no palpitations RESPIRATORY: No cough, no SOB GI: No abdominal pain, no nausea, no vomiting, no constipation, no diarrhea GENITOURINARY: No dysuria, no frequency, no hematuria MUSCULOSKELETAL: Yes: +left arm pain. No back pain, no joint pain, no myalgias SKIN: Yes: +laceration to the left arm. No rash NEURO: No headache <Yarbrough,Giomilsy - Last Filed: 02/05/17 01:56> *Physical Exam - Vital Signs Last Vital Signs Temp Pulse Resp BP Pulse Ox 97 F L 82 14 133/80 96 02/04/17 23:46 02/04/17 23:46 02/04/17 23:46 02/04/17 23:46 02/04/17 23:46 - Physical Exam Comments: 02/05/17 01:49 CONSTITUTIONAL: Well-appearing; well-nourished; in no apparent distress; alcohol in breath HEAD: Normocephalic; atraumatic EYES: PERRL; EOM intact ENMT: External appears normal; normal oropharynx NECK: Supple; non-tender; no cervical lymphadenopathy CARD: Normal S1, S2; no murmurs, rubs, or gallops RESP: Normal chest excursion with respiration; breath sounds clear and equal bilaterally; no wheezes, rhonchi, or rales ABD: Soft, non-distended; non-tender; no palpable organomegaly, no palpable hernias EXT: Normal ROM in all four extremities; non-tender to palpation; distal pulses intact SKIN: 3-3.5 cm full thickness, 0.5 cm depth, and 0.25 width laceration to the dorsal aspect of the proximal left forearm, with surrounding edema and erythema measuring approximately 10 cm. NEURO: No focal neurological deficiencies. <Marjorie Yarbrough - Last Filed: 02/05/17 01:56> - Vital Signs Last Vital Signs Temp Pulse Resp BP Pulse Ox 97 F L 82 14 133/80 96 02/04/17 23:46 02/04/17 23:46 02/04/17 23:46 02/04/17 23:46 02/04/17 23:46 <Robson Ball - Last Filed: 02/05/17 02:25> ED Treatment Course - LABORATORY CBC & Chemistry Diagram: 02/05/17 01:51 02/05/17 01:51 <Robson Ball - Last Filed: 02/05/17 02:25> Medical Decision Making - Medical Decision Making 02/05/17 02:21 Patient is 62-year-old male with history of cold abuse who presents to the ER with acute alcohol intoxication and a laceration to the left forearm which appears to be several days old and healing by secondary intention with mild surrounding erythema and induration. Patient's tetanus is up-to-date. We'll obtain CBC/CMP. We'll administer Unasyn. Will discharge with by mouth antibiotics and close follow-up. <Robson Ball - Last Filed: 02/05/17 02:25> *DC/Admit/Observation/Transfer - Attestations Scribe Attestion: 02/05/17 01:30 Documentation prepared by Marjorie Yarbrough, acting as medical translator for Robson Ball MD. <Marjorie Yarbrough - Last Filed: 02/05/17 01:56> - Attestations Physician Attestion: The documentation was prepared by the scribe under my direct supervision. I have reviewed the documentation which correctly represents the findings, medical decision-making and critical action taken by me. <Robson Ball - Last Filed: 02/05/17 02:25>
[2017-02-05] MEDS ORDERED: AMPICILLIN NA/SULBACTAM NA 3 GM in SODIUM CHLORIDE 100 ML IVPB ONE (01:24)
[2017-02-05 02:02] LABS: EOSINOPHIL 3.1 % (0-4.5); MCH 35.1 pg (25.7-33.7); MCHC 33.4 g/dl (32.0-35.9); MEAN CELL VOLUME 104.9 fl (80-96); MEAN PLT VOLUME 7.5 fl (7.5-11.1); NEUTROPHILS 61.5 % (42.8-82.8); PLATELET COUNT 265 K/MM3 (134-434); RDW 15.7 % (11.9-15.9); WHITE BLOOD COUNT 6.3 K/mm3 (4.0-10.0)
[2017-02-05 02:14] LABS: INR 1.13 (0.82-1.09); PROTHROMBIN TIME (PATIENT) 12.5 SEC (9.98-11.88)
[2017-02-05 02:23] LABS: ALBUMIN 2.9 g/dl (3.4-5.0); ANION GAP 13 (8-16); BILIRUBIN,TOTAL 0.6 mg/dL (0.2-1.0); CALCIUM 8.4 mg/dL (8.5-10.1); CO2 28 mmol/L (21-32); CREATININE 0.6 mg/dL (0.7-1.3); GLUCOSE,RANDOM 88 mg/dL (74-106); SGOT/AST 48 U/L (15-37); SGPT/ALT 22 U/L (12-78); TOT PROT 6.1 g/dl (6.4-8.2)
[2017-02-05 02:24] LABS: ALK PHOS 155 U/L (45-117)
[2017-02-05] MEDS ORDERED: POTASSIUM CHLORIDE TABS 20 MEQ TABLET.ER (FP) PO ONE (02:28)
--- NOTE | 2017-02-05 06:39 | PDOC ---
*Physical Exam - Vital Signs Last Vital Signs Temp Pulse Resp BP Pulse Ox 97 F L 82 14 133/80 96 02/04/17 23:46 02/04/17 23:46 02/04/17 23:46 02/04/17 23:46 02/04/17 23:46 ED Treatment Course - LABORATORY CBC & Chemistry Diagram: 02/05/17 01:51 02/05/17 01:51 - ADDITIONAL ORDERS Additional order review: Laboratory Results 02/05/17 02/05/17 01:51 01:51 INR 1.13 Sodium 146 H Potassium 3.2 L Chloride 105 Carbon Dioxide 28 Anion Gap 13 BUN 5 L D Creatinine 0.6 L Creat Clearance w eGFR > 60 Random Glucose 88 Calcium 8.4 L Total Bilirubin 0.6 D AST 48 H D ALT 22 D Alkaline Phosphatase 155 H Total Protein 6.1 L Albumin 2.9 L 02/05/17 01:51 RBC 3.17 L MCV 104.9 H MCHC 33.4 RDW 15.7 MPV 7.5 Neutrophils % 61.5 Lymphocytes % 27.9 Monocytes % 6.5 Eosinophils % 3.1 Basophils % 1.0 - Medications Given in the ED: ED Medications Discontinued Medications Generic Name Dose Route Start Last Admin Trade Name Freq PRN Reason Stop Dose Admin Ampicillin Sodium/Sulbactam 100 mls @ 200 mls/hr 02/05/17 01:24 02/05/17 02:44 Sodium 3 gm/ Sodium Chloride IVPB 02/05/17 01:53 200 mls/hr ONCE ONE Administration Potassium Chloride 40 meq 02/05/17 02:28 02/05/17 02:49 K-Dur - PO 02/05/17 02:29 40 meq ONCE ONE Administration *DC/Admit/Observation/Transfer Diagnosis at time of Disposition: Wrist pain Qualifiers: Laterality: left Qualified Code(s): M25.532 - Pain in left wrist Open wound of forearm Qualifiers: Encounter type: initial encounter Laterality: left Qualified Code(s): S51.802A - Unspecified open wound of left forearm, initial encounter - Discharge Dispostion Disposition: HOME Condition at time of disposition: Stable Admit: No
== END 2017-02-05 07:15 | disposition home or self-care (01) ==
LOC: JER 22:44
DX: S51.812A Laceration without foreign body of left forearm, initial encounter (principal); L08.9 Local infection of the skin and subcutaneous tissue, unspecified; X58.XXXA Exposure to other specified factors, initial encounter; Y93.9 Activity, unspecified; F10.220 Alcohol dependence with intoxication, uncomplicated; I10 Essential (primary) hypertension; C45.9 Mesothelioma, unspecified; Z59.0 Homelessness
CPT/HCPCS: 36415; 73090-TC-LT; 80053; 85025; 85610; 87040; 99282-25

== ENCOUNTER 2017-02-17 17:19 | Emergency (ER) | payer OTHER ==
--- NOTE | 2017-02-17 17:50 | PDOC ---
History of Present Illness <Fabiana Woodard - Last Filed: 02/17/17 18:20> - General History Source: Patient Exam Limitations: Intoxication - History of Present Illness Initial Comments: 02/17/17 17:50 Patient is a 62 y.o. male with a PMH HTN, mesothelioma, and multiple visits to our facility of alcohol abuse who presents today for non-specific reasons at one junction asking for placement in rehabilitation and at another point asking for a taxi. Patient denies any chest pain, shortness of breath, recent trauma, abdominal pain, fevers, chills, nausea, vomiting or diarrhea. <Ligia Wilson - Last Filed: 02/17/17 18:35> - General Stated Complaint: INTOX Time Seen by Provider: 02/17/17 17:47 Past History <Fabiana Woodard - Last Filed: 02/17/17 18:20> - Past Medical History Anemia: No Asthma: No Cancer: Yes (mesothelioma) Cardiac Disorders: No CVA: No COPD: No CHF: No Dementia: No Diabetes: No GI Disorders: No Disorders: No HTN: Yes (no med) Hypercholesterolemia: No Kidney Stones: No Liver Disease: No Psychiatric Problems: Yes (alcoholism) Suicide Attempt (Hx): No Seizures: No Thyroid Disease: No - Surgical History Abdominal Surgery: No Appendectomy: No Cardiac Surgery: No Cholecystectomy: No Lung Surgery: No Neurologic Surgery: No Orthopedic Surgery: No - Family Disease History Family Disease History: CA: Mother - Reproductive History Testicular Surgery: No - Immunization History TDAP Vaccination: Yes Immunization Up to Date: Yes - Psycho/Social/Smoking Cessation Hx Anxiety: No Suicidal Ideation: No Smoking Status: No Smoking History: Never smoked Have you smoked in the past 12 months: No Number of Cigarettes Smoked Daily: 0 Cigars Per Day: 0 'Breaking Loose' booklet given: 11/02/16 Hx Alcohol Use: Yes Drug/Substance Use Hx: No Substance Use Type: Alcohol Hx Substance Use Treatment: Yes ([facility] 11/02/16 to 11/05/16) <Ligia Wilson - Last Filed: 02/17/17 18:35> - Past Medical History Allergies/Adverse Reactions: Allergies Allergy/AdvReac Type Severity Reaction Status Date / Time Fish Containing Products Allergy Mild Verified 02/04/17 23:45 No Known Drug Allergies Allergy Verified 02/04/17 23:45 Home Medications: Ambulatory Orders NK [No Known Home Medication] 01/15/17 Review of Systems - Review of Systems Able to Perform ROS?: No (Pt. Intoxicated) <Ligia Wilson - Last Filed: 02/17/17 18:35> *Physical Exam - Vital Signs Last Vital Signs Temp Pulse Resp BP Pulse Ox 98.2 F 105 H 20 131/74 90 L 02/17/17 17:53 02/17/17 17:53 02/17/17 17:53 02/17/17 17:53 02/17/17 17:53 <Fabiana Woodard - Last Filed: 02/17/17 18:20> - Physical Exam General Appearance: Yes: Nourished, Alcohol on Breath, Obese Neck: positive: Trachea midline, Supple Respiratory/Chest: positive: Lungs Clear, Normal Breath Sounds Cardiovascular: positive: Regular Rhythm, Regular Rate Gastrointestinal/Abdominal: positive: Soft Neurologic: positive: Alert, Finger to Nose (Finger to nose dysmetria observed B /L) <Ligia Wilson - Last Filed: 02/17/17 18:35> ED Treatment Course - LABORATORY CBC & Chemistry Diagram: 02/17/17 18:10 - Medications Given in the ED: ED Medications Discontinued Medications Generic Name Dose Route Start Last Admin Trade Name Francisco Javier PRN Reason Stop Dose Admin Sodium Chloride 1,000 ml 02/17/17 17:51 02/17/17 18:12 Normal Saline - IV 02/17/17 17:52 Not Given ONCE ONE <Fabiana Woodard - Last Filed: 02/17/17 18:20> - LABORATORY CBC & Chemistry Diagram: 02/17/17 18:10 <Ligia Wilson - Last Filed: 02/17/17 18:35> Medical Decision Making - Medical Decision Making 02/17/17 18:33 Patient is a 62 y.o. male with a PMH of HTN, Mesothelioma and chronic alcohol abuse who presents with alcohol intoxication. Given that patient has a h/o of multiple visits and is well known to staff, BMP was drawn to evaluate for electrolyte abnormalities however patient left before results were obtained. <Ligia Wilson - Last Filed: 02/17/17 18:35> *DC/Admit/Observation/Transfer - Discharge Dispostion Admit: No <Fabiana Woodard - Last Filed: 02/17/17 18:20> <Ligia Wilson - Last Filed: 02/17/17 18:35> Diagnosis at time of Disposition: Alcohol intoxication, Alcohol abuse - Discharge Dispostion Disposition: AGAINST MEDICAL ADVICE Condition at time of disposition: Stable - Patient Instructions Printed Discharge Instructions: DI for Alcohol Abuse
[2017-02-17] MEDS ORDERED: SODIUM CHLORIDE 0.9% 1000 ML INFUS.BAG IV ONE (17:51)
--- NOTE | 2017-02-17 17:54 | PDOC ---
Attending Attestation - Resident Resident Name: Ligia Wilson - ED Attending Attestation I have performed the following: I have examined & evaluated the patient, The case was reviewed & discussed with the resident, I agree w/resident's findings & plan, Exceptions are as noted
[2017-02-17 17:57] VITALS: BP 131/74; PULSE 105; TEMP 98.2; BMI 33.0
[2017-02-17 18:42] LABS: ALBUMIN 3.1 g/dl (3.4-5.0); ANION GAP 13 (8-16); CALCIUM 8.6 mg/dL (8.5-10.1); CO2 27 mmol/L (21-32); CREATININE 0.7 mg/dL (0.7-1.3); GLUCOSE,RANDOM 87 mg/dL (74-106); SGOT/AST 39 U/L (15-37); SGPT/ALT 33 U/L (12-78)
[2017-02-17 18:43] LABS: ALK PHOS 155 U/L (45-117); BILIRUBIN,TOTAL 0.4 mg/dL (0.2-1.0); TOT PROT 6.7 g/dl (6.4-8.2)
== END 2017-02-17 18:20 | disposition left against medical advice (07) ==
LOC: JER 17:19
DX: F10.220 Alcohol dependence with intoxication, uncomplicated (principal); C45.9 Mesothelioma, unspecified
CPT/HCPCS: 36415; 80053; 99281-25

== ENCOUNTER 2017-02-18 18:41 | Emergency (ER) | payer OTHER ==
[2017-02-18 19:31] VITALS: BMI 37.3
--- NOTE | 2017-02-18 19:35 | PDOC ---
Attending Attestation - Resident Resident Name: Smith Dunbar - ED Attending Attestation I have performed the following: I have examined & evaluated the patient, The case was reviewed & discussed with the resident, I agree w/resident's findings & plan, Exceptions are as noted - HPI HPI: 02/18/17 19:30 Pt frequently presents for alcohol intoxication. BIB EMS. No obvious of trauma. + AOB - Physicial Exam PE: 02/18/17 19:32 *Physical Exam General Appearance: Yes: Not Appropriately Dressed. Intoxicated No: Apparent Distress HEENT: positive: EOMI, DOUGLAS, Normal ENT Inspection, Normal Voice, TMs Normal, Pharynx Normal. negative: Pale Conjunctivae, Photophobia, Scleral Icterus (R), Scleral Icterus (L) Neck: positive: Trachea midline, Normal Thyroid, Supple. negative: Tender, Rigid, Carotid bruit, Stridor, Lymphadenopathy (R), Lymphadenopathy (L), Thyromegaly Respiratory/Chest: positive: Lungs Clear, Normal Breath Sounds. negative: Chest Tender, Respiratory Distress, Accessory Muscle Use, Labored Respiration, RES, Crackles, Rales, Rhonchi, Stridor, Wheezing, Dullness Cardiovascular: positive: Regular Rhythm, Regular Rate, S1, S2. negative: Edema , JVD, Murmur, Bradycardia, Tachycardia Vascular Pulses: Dorsalis-Pedis (R): 2+, Doralis-Pedis (L): 2+ Gastrointestinal/Abdominal: positive: Normal Bowel Sounds, Flat, Soft. negative : Tender, Organomegaly, Pulsatile Mass, Increased Bowel Sounds, Decreased BS, Distended, Guarding, Rebound, Hernia, Hepatomegaly, Spleenomegaly Lymphatic: negative: Adenopathy, Tenderness Musculoskeletal: positive: Normal Inspection. negative: CVA Tenderness, Decreased Range of Motion Extremity: positive: Normal Capillary Refill, Normal Inspection, Normal Range of Motion, Pelvis Stable. negative: Tender, Pedal Edema, Swelling, Erythema Integumentary: positive: Normal Color, Dry, Warm. negative: Cyanotic, Erythema , Jaundice, Rash Neurologic: positive: headhunter II-XII NML intact, intoxicated reiterated E the eyes. On the detail patient is a Motor Strength 5/5. negative: EOM Palsy, Facial Droop, Sensory Deficit - Medical Decision Making 02/19/17 19:29 pt discharged when safe to ambulate
--- NOTE | 2017-02-18 19:35 | PDOC ---
History of Present Illness - General Chief Complaint: Alcohol intoxication Stated Complaint: INTOX Time Seen by Provider: 02/18/17 19:24 - History of Present Illness Initial Comments: 02/18/17 19:30 Patient is a 62 year old male with a history of HTN, mesothelioma, Alcohol Abuse , well known to the ED who presents with alcohol intoxication. History is difficult to obtain due to intoxication. The patient denies any trauma or other complaints. We was seen in the ED 1 day ago for alcohol intoxication and left AMA before work-up was complete. He denies falls, fevers, chills, SOB, chest pain, abdominal pain. Past History - Past Medical History Allergies/Adverse Reactions: Allergies Allergy/AdvReac Type Severity Reaction Status Date / Time Fish Containing Products Allergy Mild Verified 02/18/17 19:31 No Known Drug Allergies Allergy Verified 02/18/17 19:31 Home Medications: Ambulatory Orders NK [No Known Home Medication] 01/15/17 Anemia: No Asthma: No Cancer: Yes (mesothelioma) Cardiac Disorders: No CVA: No COPD: No CHF: No Dementia: No Diabetes: No GI Disorders: No Disorders: No HTN: Yes (no med) Hypercholesterolemia: No Kidney Stones: No Liver Disease: No Psychiatric Problems: Yes (alcoholism) Suicide Attempt (Hx): No Seizures: No Thyroid Disease: No - Surgical History Abdominal Surgery: No Appendectomy: No Cardiac Surgery: No Cholecystectomy: No Lung Surgery: No Neurologic Surgery: No Orthopedic Surgery: No - Family Disease History Family Disease History: CA: Mother - Reproductive History Testicular Surgery: No - Immunization History TDAP Vaccination: Yes Immunization Up to Date: Yes - Psycho/Social/Smoking Cessation Hx Anxiety: No Suicidal Ideation: No Smoking Status: No Smoking History: Never smoked Have you smoked in the past 12 months: No Number of Cigarettes Smoked Daily: 0 Cigars Per Day: 0 'Breaking Loose' booklet given: 11/02/16 Hx Alcohol Use: Yes Drug/Substance Use Hx: No Substance Use Type: Alcohol Hx Substance Use Treatment: Yes ([facility] 11/02/16 to 11/05/16) Review of Systems - Review of Systems Constitutional: No: Chills, Fever Respiratory: No: Cough, Shortness of Breath Cardiac (ROS): No: Chest Pain, Lightheadedness, Palpitations ABD/GI: No: Constipated, Diarrhea, Nausea, Vomiting : No: Dysuria Integumentary: No: Rash Neurological: No: Headache, Numbness, Tingling, Weakness *Physical Exam - Physical Exam Comments: 02/18/17 19:34 General Appearance: Nourished, Alcohol on Breath, Intoxicated. No Apparent Distress HEENT: No Pharyngeal Erythema, Tonsillar Exudate, Tonsillar Erythema Respiratory/Chest: Lungs Clear, Normal Breath Sounds. No Crackles, Rales, Rhonchi, Wheezing Cardiovascular: Regular Rhythm, Regular Rate. No Murmur, Gallop/S3, Gallop/S4 Gastrointestinal/Abdominal: Normal Bowel Sounds, Soft. No Guarding, Rebound, Tenderness Extremity: Normal Capillary Refill Integumentary: Normal Color, Dry, Warm Neurologic: Fully Oriented, Alert, Normal Mood/Affect, Normal Response Medical Decision Making - Medical Decision Making 02/18/17 19:35 Patient is a 62 year old male with a history of HTN, mesothelioma, Alcohol Abuse , well known to the ED who presents with alcohol intoxication. History is difficult due to acute intoxication from alcohol. We will observe the patient for sobriety and reassess. The patient tends to have hypokalemia and we will evaluate for repletion upon reassessing the patient. 02/18/17 22:43 Patient was eating comfortably in bed. Now resting comfortably. Will reassess. 02/19/17 05:53 Patient refusing potassium at this time. Patient received librium. 02/19/17 07:08 Patient signed out to Dr. Yost. *DC/Admit/Observation/Transfer Diagnosis at time of Disposition: Alcohol abuse - Discharge Dispostion Disposition: HOME Condition at time of disposition: Improved
[2017-02-19] MEDS ORDERED: chlordiazePOXIDE HCL 25 MG CAPSULE PO ONE (05:39)
[2017-02-19] MEDS ORDERED: POTASSIUM CHLORIDE ORAL LIQUID 20 MEQ/15 ML PO ONE (05:39)
[2017-02-19] MEDS ORDERED: chlordiazePOXIDE HCL 25 MG CAPSULE ONE (05:43)
[2017-02-19] MEDS ORDERED: POTASSIUM CHLORIDE ORAL LIQUID 20 MEQ/15 ML ONE (05:43)
[2017-02-19 08:28] VITALS: TEMP 98.3
--- NOTE | 2017-02-19 08:34 | PDOC ---
*Physical Exam - Vital Signs Last Vital Signs Temp Pulse Resp BP Pulse Ox 98.3 F 70 18 129/74 98 02/19/17 07:25 02/19/17 07:25 02/19/17 07:25 02/19/17 07:25 02/19/17 07:25 ED Treatment Course - Medications Given in the ED: ED Medications Discontinued Medications Generic Name Dose Route Start Last Admin Trade Name Freq PRN Reason Stop Dose Admin Chlordiazepoxide HCl 50 mg 02/19/17 05:39 02/19/17 05:47 Librium - PO 02/19/17 05:40 50 mg ONCE ONE Administration Potassium Chloride 40 meq 02/19/17 05:39 02/19/17 05:47 Potassium Chloride Oral Liquid PO 02/19/17 05:40 Not Given ONCE ONE Medical Decision Making - Medical Decision Making 02/19/17 08:32 Patient taken over from Dr. Dunbar for further care. 02/19/17 08:42 Patient awake and resting comfortably in bed. Will D/C to home. *DC/Admit/Observation/Transfer Diagnosis at time of Disposition: Alcohol abuse - Discharge Dispostion Disposition: HOME
[2017-02-19 09:27] VITALS: BP 131/77; PULSE 74
== END 2017-02-19 09:26 | disposition home or self-care (01) ==
LOC: JER 18:41
DX: F10.120 Alcohol abuse with intoxication, uncomplicated (principal); I10 Essential (primary) hypertension; C45.9 Mesothelioma, unspecified
CPT/HCPCS: 99283-25

== ENCOUNTER 2017-02-19 15:10 | Emergency (ER) | payer OTHER ==
[2017-02-19 15:33] VITALS: BP 110/77; PULSE 91; TEMP 97.6; BMI 22.9
--- NOTE | 2017-02-19 15:41 | PDOC ---
History of Present Illness - General Chief Complaint: Alcohol intoxication Stated Complaint: Alcohol intoxication Time Seen by Provider: 02/19/17 15:41 - History of Present Illness Initial Comments: 02/19/17 16:12 Mr. De Leon is a 62 year old male well known to the service for intoxication related visits who presents to the emergency department via EMS for intoxication evaluation. The patient denies chest pain, shortness of breath, headache and dizziness. Denies fever, chills, nausea, vomit, diarrhea and constipation. Denies dysuria, frequency, urgency and hematuria. Allergies: NKDA Past History - Past Medical History Allergies/Adverse Reactions: Allergies Allergy/AdvReac Type Severity Reaction Status Date / Time Fish Containing Products Allergy Mild Verified 02/18/17 19:31 No Known Drug Allergies Allergy Verified 02/18/17 19:31 Home Medications: Ambulatory Orders NK [No Known Home Medication] 01/15/17 Anemia: No Asthma: No Cancer: Yes (mesothelioma) Cardiac Disorders: No CVA: No COPD: No CHF: No Dementia: No Diabetes: No GI Disorders: No Disorders: No HTN: Yes (no med) Hypercholesterolemia: No Kidney Stones: No Liver Disease: No Psychiatric Problems: Yes (alcoholism) Suicide Attempt (Hx): No Seizures: No Thyroid Disease: No - Surgical History Abdominal Surgery: No Appendectomy: No Cardiac Surgery: No Cholecystectomy: No Lung Surgery: No Neurologic Surgery: No Orthopedic Surgery: No - Family Disease History Family Disease History: CA: Mother - Reproductive History Testicular Surgery: No - Immunization History TDAP Vaccination: Yes Immunization Up to Date: Yes - Psycho/Social/Smoking Cessation Hx Anxiety: No Suicidal Ideation: No Smoking Status: No Smoking History: Never smoked Have you smoked in the past 12 months: No Number of Cigarettes Smoked Daily: 0 Cigars Per Day: 0 Information on smoking cessation initiated: No 'Breaking Loose' booklet given: 11/02/16 Hx Alcohol Use: No Drug/Substance Use Hx: No Substance Use Type: Alcohol Hx Substance Use Treatment: Yes ([facility] 11/02/16 to 11/05/16) Review of Systems - Review of Systems Comments:: 02/19/17 16:12 GENERAL/CONSTITUTIONAL: No fever or chills. No weakness. HEAD, EYES, EARS, NOSE AND THROAT: No change in vision. No ear pain or discharge. No sore throat. CARDIOVASCULAR: No chest pain or shortness of breath RESPIRATORY: No cough, wheezing, or hemoptysis. GASTROINTESTINAL: No nausea, vomiting, diarrhea or constipation. GENITOURINARY: No dysuria, frequency, or change in urination. MUSCULOSKELETAL: No joint or muscle swelling or pain. No neck or back pain. SKIN: No rash NEUROLOGIC: No headache, vertigo, loss of consciousness, or change in strength/ sensation. ENDOCRINE: No increased thirst. No abnormal weight change HEMATOLOGIC/LYMPHATIC: No anemia, easy bleeding, or history of blood clots. ALLERGIC/IMMUNOLOGIC: No hives or skin allergy. *Physical Exam - Vital Signs Last Vital Signs Temp Pulse Resp BP Pulse Ox 97.6 F 91 H 18 110/77 96 02/19/17 15:23 02/19/17 15:23 02/19/17 15:23 02/19/17 15:23 02/19/17 15:23 - Physical Exam Comments: 02/19/17 16:12 GENERAL: Awake, alert, and fully oriented, in no acute distress HEAD: No signs of trauma, normocephalic, atraumatic EYES: PERRLA, EOMI, sclera anicteric, conjunctiva clear ENT: Auricles normal inspection, hearing grossly normal, nares patent, oropharynx clear without exudates. Moist mucosa NECK: Normal ROM, supple, no lymphadenopathy, JVD, or masses LUNGS: No distress, speaks full sentences, clear to auscultation bilaterally HEART: Regular rate and rhythm, normal S1 and S2, no murmurs, rubs or gallops, peripheral pulses normal and equal bilaterally. ABDOMEN: Soft, nontender, normoactive bowel sounds. No guarding, no rebound. No masses EXTREMITIES: Normal inspection, Normal range of motion, no edema. No clubbing or cyanosis. NEUROLOGICAL: Cranial nerves II through XII grossly intact. Normal speech, normal gait, no focal sensorimotor deficits SKIN: Warm, Dry, normal turgor, no rashes or lesions noted. Medical Decision Making - Medical Decision Making 02/19/17 17:06 Patient eloped. *DC/Admit/Observation/Transfer Diagnosis at time of Disposition: Alcohol intoxication - Discharge Dispostion Disposition: ELOPED
--- NOTE | 2017-02-19 17:09 | PDOC ---
Attending Attestation - Resident Resident Name: Koryjose [email or web address] - ED Attending Attestation I have performed the following: I have examined & evaluated the patient, The case was reviewed & discussed with the resident, I agree w/resident's findings & plan, Exceptions are as noted - HPI HPI: 02/19/17 17:08 62-year-old male chronic alcoholic well known to this institution presents with EMS with intoxication. He has no complaints otherwise. - Physicial Exam PE: 02/19/17 17:08 vital signs normal Atraumatic Alert and smiling in stretcher, no acute distress - Medical Decision Making 02/19/17 17:08 Patient seen and evaluated with the resident. I agree with the overall evaluation, assessment, and management with the following summary of visit: 62-year-old male presents for his alcoholism, no acute issues and he is well- appearing and ambulating steadily. Case management involved, patient eloped
== END 2017-02-19 17:16 | disposition left against medical advice (07) ==
LOC: JER 15:10
DX: F10.220 Alcohol dependence with intoxication, uncomplicated (principal); I10 Essential (primary) hypertension; C45.9 Mesothelioma, unspecified; Z59.0 Homelessness
CPT/HCPCS: 99283-25

== ENCOUNTER 2017-02-21 17:16 | Emergency (ER) | payer OTHER ==
[2017-02-21 17:34] VITALS: BMI 31.5
[2017-02-21 17:50] VITALS: TEMP 98.8
--- NOTE | 2017-02-21 18:02 | PDOC ---
History of Present Illness - General History Source: Patient - History of Present Illness Timing/Duration: other Associated Symptoms: denies: cough, fever/chills, headaches, nausea/vomiting, seizure, shortness of breath <Ninfa Arreola - Last Filed: 02/21/17 18:59> <Dayanara Son - Last Filed: 02/22/17 06:23> - General Chief Complaint: Alcohol intoxication Stated Complaint: INTOX Time Seen by Provider: 02/21/17 17:51 Past History - Past Medical History Anemia: No Asthma: No Cancer: Yes (mesothelioma) Cardiac Disorders: No CVA: No COPD: No CHF: No Dementia: No Diabetes: No GI Disorders: No Disorders: No HTN: Yes (no med) Hypercholesterolemia: No Kidney Stones: No Liver Disease: No Psychiatric Problems: Yes (alcoholism) Suicide Attempt (Hx): No Seizures: No Thyroid Disease: No - Surgical History Abdominal Surgery: No Appendectomy: No Cardiac Surgery: No Cholecystectomy: No Lung Surgery: No Neurologic Surgery: No Orthopedic Surgery: No - Family Disease History Family Disease History: CA: Mother - Reproductive History Testicular Surgery: No - Immunization History TDAP Vaccination: Yes Immunization Up to Date: Yes - Psycho/Social/Smoking Cessation Hx Anxiety: No Suicidal Ideation: No Smoking Status: No Smoking History: Never smoked Have you smoked in the past 12 months: No Number of Cigarettes Smoked Daily: 0 Cigars Per Day: 0 Information on smoking cessation initiated: No 'Breaking Loose' booklet given: 11/02/16 Hx Alcohol Use: Yes Drug/Substance Use Hx: No Substance Use Type: Alcohol Hx Substance Use Treatment: Yes ([facility] 11/02/16 to 11/05/16) <Ninfa Arreola - Last Filed: 02/21/17 18:59> <Dayanara Son - Last Filed: 02/22/17 06:23> - Past Medical History Allergies/Adverse Reactions: Allergies Allergy/AdvReac Type Severity Reaction Status Date / Time Fish Containing Products Allergy Mild Verified 02/21/17 17:32 No Known Drug Allergies Allergy Verified 02/21/17 17:32 Home Medications: Ambulatory Orders NK [No Known Home Medication] 01/15/17 Review of Systems - Review of Systems Constitutional: No: Fever Respiratory: No: Cough, Shortness of Breath Cardiac (ROS): No: Chest Pain ABD/GI: No: Diarrhea, Nausea, Vomiting Neurological: No: Headache, Dizziness <Ninfa Arreola - Last Filed: 02/21/17 18:59> *Physical Exam - Vital Signs Last Vital Signs Temp Pulse Resp BP Pulse Ox 98.8 F 103 H 18 122/72 93 L 02/21/17 17:49 02/21/17 17:49 02/21/17 17:49 02/21/17 17:49 02/21/17 17:49 - Physical Exam General Appearance: Yes: Appropriately Dressed, Alcohol on Breath. No: Apparent Distress HEENT: positive: Normal Voice Neck: positive: Supple Respiratory/Chest: positive: Lungs Clear, Normal Breath Sounds. negative: Respiratory Distress Cardiovascular: positive: Regular Rate, S1, S2 <Ninfa Arreola - Last Filed: 02/21/17 18:59> - Vital Signs Last Vital Signs Temp Pulse Resp BP Pulse Ox 98.8 F 87 18 140/80 99 02/21/17 17:49 02/22/17 03:10 02/22/17 03:10 02/22/17 03:10 02/22/17 03:10 <Dayanara Son - Last Filed: 02/22/17 06:23> ED Treatment Course - Medications Given in the ED: ED Medications Discontinued Medications Generic Name Dose Route Start Last Admin Trade Name Francisco Javier PRN Reason Stop Dose Admin Albuterol/Ipratropium 1 amp 02/22/17 05:01 02/22/17 06:03 Duoneb - NEB 02/22/17 05:02 1 amp ONCE ONE Administration <Dayanara Son - Last Filed: 02/22/17 06:23> Medical Decision Making - Medical Decision Making 02/21/17 17:55 62-year-old male history of hypertension, mesothelioma, chronic alcohol abuse, well-known to this institution for mostly ETOH intoxication, p/w same today. BIB EMS. No reports of trauma. Pt has no complaints at this time and currently eating in ED Se exam ETOH abuse Stable in ED w/ no e/o trauma Currently eating crackers and drinking soup while siting in chair -sobriety -watch for withdrawal 02/21/17 18:02 02/21/17 18:59 Signed out to MICHAEL Son pending sobriety <Ninfa Arreola - Last Filed: 02/21/17 18:59> *DC/Admit/Observation/Transfer <Ninfa Arreola - Last Filed: 02/21/17 18:59> - Discharge Dispostion Admit: No <Dayanara Son - Last Filed: 02/22/17 06:23> Diagnosis at time of Disposition: Alcohol intoxication - Discharge Dispostion Disposition: HOME Condition at time of disposition: Improved - Patient Instructions Printed Discharge Instructions: DI for Alcohol Abuse Additional Instructions: FOLLOW UP WITH YOUR PRIMARY CARE PROVIDER THIS WEEK. STOP DRINKING. TRY REHAB. RETURN IF ANY CONCERNS. Print Language: ROMANSH
--- NOTE | 2017-02-21 22:30 | PDOC ---
*Physical Exam - Vital Signs Last Vital Signs Temp Pulse Resp BP Pulse Ox 98.8 F 103 H 18 122/72 93 L 02/21/17 17:49 02/21/17 17:49 02/21/17 17:49 02/21/17 17:49 02/21/17 17:49 Medical Decision Making - Medical Decision Making 02/21/17 22:29 Pt seen by the Advanced Practice Provider under my direct supervision Ancillary studies reviewed I agree with plan as outlined by the Advanced Practice Provider *DC/Admit/Observation/Transfer Diagnosis at time of Disposition: Alcohol intoxication - Discharge Dispostion Disposition: HOME Condition at time of disposition: Improved - Patient Instructions Printed Discharge Instructions: DI for Alcohol Abuse Additional Instructions: FOLLOW UP WITH YOUR PRIMARY CARE PROVIDER THIS WEEK. STOP DRINKING. TRY REHAB. RETURN IF ANY CONCERNS. Print Language: QATARI - Attestations Physician Attestion: 02/26/17 11:11 I, Dr. Fernie Rosenthal MD, attest that this document has been prepared under my direction and personally reviewed by me in its entirety. I further attest, that it accurately reflects all work, treatment, procedures and medical decision -making performed by me.
[2017-02-22] MEDS ORDERED: ALBUTEROL SO4 2.5/IPRATROPIUM 0.5 INH SOL 3 ML VIAL.NEB. NEB ONE (05:01)
[2017-02-22 06:28] VITALS: BP 148/70; PULSE 68
== END 2017-02-22 06:43 | disposition home or self-care (01) ==
LOC: JER 17:16
PROC: 3E0F7GC Introduction of Other Therapeutic Substance into Respiratory Tract, Via Natural or Artificial Opening (ICD-10-PCS; principal; 2017-02-21)
DX: F10.220 Alcohol dependence with intoxication, uncomplicated (principal); I10 Essential (primary) hypertension; C45.9 Mesothelioma, unspecified; Z59.0 Homelessness
CPT/HCPCS: 94640; 99282-25

== ENCOUNTER 2017-02-26 11:37 | Emergency (ER) | payer OTHER ==
--- NOTE | 2017-02-26 12:00 | PDOC ---
History of Present Illness - History of Present Illness Initial Comments: 02/26/17 12:54 The patient is a 62 year old male, well-known to this facility, with a significant past medical history of alcohol dependency and mesothelioma, who presents to the emergency department via ems for alcohol intoxication today. The patient denies any complaints at this time and when asked what we can do for him his response is "I want a food tray and to go home." He denies chest pain, shortness of breath, headache and dizziness. He denies fever, chills, nausea, vomit, diarrhea and constipation. He denies dysuria, frequency, urgency and hematuria. Allergies: NKDA <Ernestine Snyder - Last Filed: 02/26/17 13:02> <Nuris Smith - Last Filed: 02/28/17 07:35> - General Stated Complaint: ALCOHOL INTOXICATION Time Seen by Provider: 02/26/17 12:00 Past History <Ernestine Snyder - Last Filed: 02/26/17 13:02> - Past Medical History Anemia: No Asthma: No Cancer: Yes (mesothelioma) Cardiac Disorders: No CVA: No COPD: No CHF: No Dementia: No Diabetes: No GI Disorders: No Disorders: No HTN: Yes (no med) Hypercholesterolemia: No Kidney Stones: No Liver Disease: No Psychiatric Problems: Yes (alcoholism) Suicide Attempt (Hx): No Seizures: No Thyroid Disease: No - Surgical History Abdominal Surgery: No Appendectomy: No Cardiac Surgery: No Cholecystectomy: No Lung Surgery: No Neurologic Surgery: No Orthopedic Surgery: No - Family Disease History Family Disease History: CA: Mother - Reproductive History Testicular Surgery: No - Immunization History TDAP Vaccination: Yes Immunization Up to Date: Yes - Psycho/Social/Smoking Cessation Hx Anxiety: No Suicidal Ideation: No Smoking Status: No Smoking History: Never smoked Have you smoked in the past 12 months: No Number of Cigarettes Smoked Daily: 0 Cigars Per Day: 0 'Breaking Loose' booklet given: 11/02/16 Hx Alcohol Use: Yes Drug/Substance Use Hx: No Substance Use Type: Alcohol Hx Substance Use Treatment: Yes ([facility] 11/02/16 to 11/05/16) <Nuris Smith - Last Filed: 02/28/17 07:35> - Past Medical History Allergies/Adverse Reactions: Allergies Allergy/AdvReac Type Severity Reaction Status Date / Time Fish Containing Products Allergy Mild Verified 02/21/17 17:32 No Known Drug Allergies Allergy Verified 02/21/17 17:32 Home Medications: Ambulatory Orders NK [No Known Home Medication] 01/15/17 Review of Systems - Review of Systems Able to Perform ROS?: Yes Comments:: 02/26/17 12:56 GENERAL/CONSTITUTIONAL: No fever or chills. No weakness. HEAD, EYES, EARS, NOSE AND THROAT: No change in vision. No ear pain or discharge. No sore throat. CARDIOVASCULAR: No chest pain or shortness of breath. RESPIRATORY: No cough, wheezing, or hemoptysis. GASTROINTESTINAL: No nausea, vomiting, diarrhea or constipation. GENITOURINARY: No dysuria, frequency, or change in urination. MUSCULOSKELETAL: No joint or muscle swelling or pain. No neck or back pain. SKIN: No rash NEUROLOGIC: No headache, vertigo, loss of consciousness, or change in strength/ sensation. ENDOCRINE: No increased thirst. No abnormal weight change. HEMATOLOGIC/LYMPHATIC: No anemia, easy bleeding, or history of blood clots. ALLERGIC/IMMUNOLOGIC: No hives or skin allergy. <Ernestine Snyder - Last Filed: 02/26/17 13:02> *Physical Exam - Vital Signs Last Vital Signs Temp Pulse Resp BP Pulse Ox 98 F 87 20 100/55 93 L 02/26/17 12:05 02/26/17 12:05 02/26/17 12:05 02/26/17 12:05 02/26/17 12:05 - Physical Exam Comments: 02/26/17 12:56 GENERAL: (+) ETOH on breath. Awake, alert, and fully oriented, in no acute distress HEAD: No signs of trauma EYES: PERRLA, EOMI, sclera anicteric, conjunctiva clear ENT: Auricles normal inspection, hearing grossly normal, nares patent, oropharynx clear without exudates. Moist mucosa NECK: Normal ROM, supple, no lymphadenopathy, JVD, or masses LUNGS: Breath sounds equal, clear to auscultation bilaterally. No wheezes, and no crackles HEART: Regular rate and rhythm, normal S1 and S2, no murmurs, rubs or gallops ABDOMEN: Soft, nontender, normoactive bowel sounds. No guarding, no rebound. No masses EXTREMITIES: Normal range of motion, no edema. No clubbing or cyanosis. No cords, erythema, or tenderness NEUROLOGICAL: Cranial nerves II through XII grossly intact. Normal speech, normal gait SKIN: Warm, Dry, normal turgor, no rashes or lesions noted. <Ernestine Snyder - Last Filed: 02/26/17 13:02> Medical Decision Making - Medical Decision Making 02/28/17 07:34 Pt presents to the ED stating that he is intoxicated and requesting food. patient is alert and oriented with a steady gait. Eloped from the ED after getting food. <Nuris Smith - Last Filed: 02/28/17 07:35> *DC/Admit/Observation/Transfer - Attestations Scribe Attestion: 02/26/17 12:57 Documentation prepared by Ernestine Snyder, acting as medical imaging director for Nuris Smith MD, <Ernestine Snyder - Last Filed: 02/26/17 13:02> - Discharge Dispostion Admit: No <Nuris Smith - Last Filed: 02/28/17 07:35> Diagnosis at time of Disposition: Eloped, Alcohol abuse - Discharge Dispostion Disposition: HOME Condition at time of disposition: Good
[2017-02-26 12:06] VITALS: BP 100/55; PULSE 87; TEMP 98; BMI 34.0
[2017-03-18] MEDS ORDERED: FOLIC ACID 1 MG TABLET (FP) ONE (13:07)
[2017-03-18] MEDS ORDERED: POTASSIUM CHLORIDE TABS 20 MEQ TABLET.ER (FP) PO ONE (13:38)
== END 2017-02-26 13:37 | disposition home or self-care (01) ==
LOC: JER 11:37
DX: F10.220 Alcohol dependence with intoxication, uncomplicated (principal); I10 Essential (primary) hypertension; C45.9 Mesothelioma, unspecified; Z59.0 Homelessness
CPT/HCPCS: 99281-25

== ENCOUNTER 2017-03-02 13:45 | Emergency (ER) | payer OTHER ==
[2017-03-02 14:51] VITALS: TEMP 97.6; BMI 33.0
--- NOTE | 2017-03-02 14:55 | PDOC ---
History of Present Illness - General Chief Complaint: Alcohol intoxication Stated Complaint: INTOX Time Seen by Provider: 03/02/17 14:15 History Source: Patient Exam Limitations: No Limitations Past History - Past Medical History Allergies/Adverse Reactions: Allergies Allergy/AdvReac Type Severity Reaction Status Date / Time Fish Containing Products Allergy Mild Verified 02/21/17 17:32 No Known Drug Allergies Allergy Verified 02/21/17 17:32 Home Medications: Ambulatory Orders NK [No Known Home Medication] 01/15/17 Anemia: No Asthma: No Cancer: Yes (mesothelioma) Cardiac Disorders: No CVA: No COPD: No CHF: No Dementia: No Diabetes: No GI Disorders: No Disorders: No HTN: Yes (no med) Hypercholesterolemia: No Kidney Stones: No Liver Disease: No Psychiatric Problems: Yes (alcoholism) Seizures: No Thyroid Disease: No - Surgical History Abdominal Surgery: No Appendectomy: No Cardiac Surgery: No Cholecystectomy: No Lung Surgery: No Neurologic Surgery: No Orthopedic Surgery: No - Family Disease History Family Disease History: CA: Mother - Reproductive History Testicular Surgery: No - Immunization History TDAP Vaccination: Yes Immunization Up to Date: Yes - Suicide/Smoking/Psychosocial Hx Smoking Status: No Smoking History: Never smoked Have you smoked in the past 12 months: No Number of Cigarettes Smoked Daily: 0 Cigars Per Day: 0 Information on smoking cessation initiated: No 'Breaking Loose' booklet given: 11/02/16 Hx Alcohol Use: Yes Drug/Substance Use Hx: No Substance Use Type: Alcohol Hx Substance Use Treatment: Yes ([facility] 11/02/16 to 11/05/16) *Physical Exam - Vital Signs Last Vital Signs Temp Pulse Resp BP Pulse Ox 97.6 F 96 H 20 102/65 96 03/02/17 13:45 03/02/17 13:45 03/02/17 13:45 03/02/17 13:45 03/02/17 13:45 *DC/Admit/Observation/Transfer Diagnosis at time of Disposition: Alcohol abuse, Alcohol intoxication, Alcohol dependence - Discharge Dispostion Disposition: HOME Condition at time of disposition: Stable - Patient Instructions Printed Discharge Instructions: DI for Alcohol Abuse Additional Instructions: You have been medically cleared. [facility] can accept you for detox. Please head to [facility] now. Return to the ED if you have fevers, chills, nausea, vomiting, or any changes in your symptoms.
[2017-03-02 19:07] VITALS: BP 128/78; PULSE 110
== END 2017-03-02 19:05 | disposition home or self-care (01) ==
LOC: JER 13:45
DX: F10.220 Alcohol dependence with intoxication, uncomplicated (principal); I10 Essential (primary) hypertension; C45.9 Mesothelioma, unspecified; Z59.0 Homelessness
CPT/HCPCS: 99282-25

== ENCOUNTER 2017-03-02 23:24 | Emergency (ER) | payer OTHER ==
[2017-03-02 23:51] VITALS: BP 151/78; PULSE 96; TEMP 97.7; BMI 33.0
== END 2017-03-03 07:10 | disposition home or self-care (01) ==
LOC: JER 23:24
DX: F10.220 Alcohol dependence with intoxication, uncomplicated (principal); Z59.0 Homelessness
CPT/HCPCS: 99282-25

== ENCOUNTER 2017-03-03 12:08 | Emergency (ER) | payer OTHER ==
--- NOTE | 2017-03-03 14:17 | PDOC ---
Attending Attestation - Resident Resident Name: Genevieve Jordan - ED Attending Attestation I have performed the following: I have examined & evaluated the patient, The case was reviewed & discussed with the resident, I agree w/resident's findings & plan, Exceptions are as noted - HPI HPI: 03/03/17 14:15 62-year-old male with alcoholism well known to this department and institution presents brought in by EMS with mild alcohol intoxication. No complaints, no falls. - Physicial Exam PE: 03/03/17 14:15 Vital signs stable. Atraumatic Well-appearing, conversant with staff Sat up and ate lunch, then fell asleep. Exam otherwise as noted - Medical Decision Making 03/03/17 14:16 Patient seen and evaluated with the resident. I agree with the overall evaluation, assessment, and management with the following summary of visit: 62-year-old male returns to the emergency department with alcohol intoxication. No evidence of acute pathology or trauma. Case management Discharge 03/03/17 16:49 awake but still slightly intoxicated. Can be discharged once more steady on his feet.
--- NOTE | 2017-03-03 15:56 | PDOC ---
History of Present Illness - General Chief Complaint: Alcohol intoxication Stated Complaint: INTOX Time Seen by Provider: 03/03/17 12:28 History Source: Patient Exam Limitations: Intoxication - History of Present Illness Initial Comments: 62yo M with PMH of etoh abuse, htn untreated, presents intoxicated. Pt has no complaints. Pt denies fall/injury. Pt declined to participate in history, he just wanted to sleep. Pt is well-known to this ER, has an extensive hx of coming in intoxicated. 03/03/17 15:48 Associated Symptoms: denies: cough, diaphoresis, fever/chills, nausea/vomiting, rash, shortness of breath Past History - Past Medical History Allergies/Adverse Reactions: Allergies Allergy/AdvReac Type Severity Reaction Status Date / Time Fish Containing Products Allergy Mild Verified 02/21/17 17:32 No Known Drug Allergies Allergy Verified 02/21/17 17:32 Home Medications: Ambulatory Orders NK [No Known Home Medication] 01/15/17 Anemia: No Asthma: No Cancer: Yes (mesothelioma) Cardiac Disorders: No CVA: No COPD: No CHF: No Dementia: No Diabetes: No GI Disorders: No Disorders: No HTN: Yes (no med) Hypercholesterolemia: No Kidney Stones: No Liver Disease: No Psychiatric Problems: Yes (alcoholism) Seizures: No Thyroid Disease: No - Surgical History Abdominal Surgery: No Appendectomy: No Cardiac Surgery: No Cholecystectomy: No Lung Surgery: No Neurologic Surgery: No Orthopedic Surgery: No - Family Disease History Family Disease History: CA: Mother - Reproductive History Testicular Surgery: No - Immunization History TDAP Vaccination: Yes Immunization Up to Date: Yes - Suicide/Smoking/Psychosocial Hx Smoking Status: No Smoking History: Never smoked Have you smoked in the past 12 months: No Number of Cigarettes Smoked Daily: 0 Cigars Per Day: 0 Information on smoking cessation initiated: No 'Breaking Loose' booklet given: 11/02/16 Hx Alcohol Use: Yes Drug/Substance Use Hx: No Substance Use Type: Alcohol Hx Substance Use Treatment: Yes ([facility] 11/02/16 to 11/05/16) Review of Systems - Review of Systems Able to Perform ROS?: No (arousable, uninterested) *Physical Exam - Physical Exam General Appearance: Yes: Nourished, Appropriately Dressed, Intoxicated. No: Apparent Distress HEENT: positive: EOMI, Other (moist mucous membranes). negative: Pale Conjunctivae, Scleral Icterus (R), Scleral Icterus (L), Nasal Congestion, Rhinorrhea Neck: positive: Trachea midline, Supple Respiratory/Chest: positive: Lungs Clear, Normal Breath Sounds. negative: Respiratory Distress, Accessory Muscle Use Cardiovascular: positive: Regular Rhythm, Regular Rate, S1, S2. negative: Murmur Gastrointestinal/Abdominal: positive: Soft. negative: Distended, Guarding, Rebound, Tenderness Musculoskeletal: positive: Normal Inspection. negative: Decreased Range of Motion Extremity: positive: Normal Inspection. negative: Swelling, Calf Tenderness, Erythema Integumentary: positive: Normal Color, Dry, Warm Neurologic: positive: Alert, Motor Strength 5/5 Medical Decision Making - Medical Decision Making 62yo M with PMH of etoh abuse, htn untreated, presents intoxicated. Pt has no complaints. Physical exam unremarkable. Pt arousable, but just wanted to sleep. He awoke to eat lunch, and then went back to sleep. Well appearing man with no evidence of acute pathology or trauma. Plan = sobriety -> discharge. 03/03/17 16:39 03/03/17 17:39 Pt reassessed at 5pm. Feeling better, but more sobriety desired before discharge. Pt eloped. *DC/Admit/Observation/Transfer Diagnosis at time of Disposition: Eloped - Discharge Dispostion Disposition: ELOPED
== END 2017-03-03 17:32 | disposition left against medical advice (07) ==
LOC: JER 12:08
DX: F10.220 Alcohol dependence with intoxication, uncomplicated (principal); I10 Essential (primary) hypertension; C45.9 Mesothelioma, unspecified; Z59.0 Homelessness
CPT/HCPCS: 99281-25

== ENCOUNTER 2017-03-03 21:27 | Emergency (ER) | payer OTHER ==
[2017-03-03 22:10] VITALS: BP 99/56; PULSE 86; TEMP 98.1; BMI 33.0
--- NOTE | 2017-03-03 23:51 | PDOC ---
History of Present Illness <Sue Casanova - Last Filed: 03/03/17 23:51> - General History Source: Patient Exam Limitations: No Limitations - History of Present Illness Initial Comments: 03/03/17 23:52 Patient is a 62 year old male with a significant past medical history of of alcohol dependency and mesothelioma, who presents to the ED intoxicated. Patient is well known to this facility, and is sitting in waiting room with no complaints. Denies any other symptoms. Allergies: None Social history: None Surgical history: None PMD: None <Kamari Flores - Last Filed: 03/04/17 00:01> - General Chief Complaint: Alcohol intoxication Stated Complaint: Alcohol intoxication Time Seen by Provider: 03/03/17 21:57 Past History - Past Medical History Anemia: No Asthma: No Cancer: Yes (mesothelioma) Cardiac Disorders: No CVA: No COPD: No CHF: No Dementia: No Diabetes: No GI Disorders: No Disorders: No HTN: Yes (no med) Hypercholesterolemia: No Kidney Stones: No Liver Disease: No Psychiatric Problems: Yes (alcoholism) Seizures: No Thyroid Disease: No - Surgical History Abdominal Surgery: No Appendectomy: No Cardiac Surgery: No Cholecystectomy: No Lung Surgery: No Neurologic Surgery: No Orthopedic Surgery: No - Family Disease History Family Disease History: CA: Mother - Reproductive History Testicular Surgery: No - Immunization History TDAP Vaccination: Yes Immunization Up to Date: Yes - Suicide/Smoking/Psychosocial Hx Smoking Status: No Smoking History: Current some day smoker Have you smoked in the past 12 months: No Number of Cigarettes Smoked Daily: 0 Cigars Per Day: 0 Information on smoking cessation initiated: No 'Breaking Loose' booklet given: 11/02/16 Hx Alcohol Use: Yes (daily) Drug/Substance Use Hx: No Substance Use Type: Alcohol Hx Substance Use Treatment: Yes ([facility] 11/02/16 to 11/05/16) <Sue Casanova - Last Filed: 03/03/17 23:51> <Kamari Flores - Last Filed: 03/04/17 00:01> - Past Medical History Allergies/Adverse Reactions: Allergies Allergy/AdvReac Type Severity Reaction Status Date / Time Fish Containing Products Allergy Mild Verified 03/03/17 21:52 No Known Drug Allergies Allergy Verified 03/03/17 21:52 Home Medications: Ambulatory Orders NK [No Known Home Medication] 01/15/17 Review of Systems - Review of Systems Able to Perform ROS?: No Comments:: 03/03/17 23:58 Cannot Participate in ROS All Other Systems: Reviewed and Negative <Kamari Flores - Last Filed: 03/04/17 00:01> *Physical Exam - Vital Signs Last Vital Signs Temp Pulse Resp BP Pulse Ox 98.1 F 86 20 99/56 92 L 03/03/17 21:28 03/03/17 21:28 03/03/17 21:28 03/03/17 21:28 03/03/17 21:28 <Sue Casanova - Last Filed: 03/03/17 23:51> - Vital Signs Last Vital Signs Temp Pulse Resp BP Pulse Ox 98.1 F 86 20 99/56 92 L 03/03/17 21:28 03/03/17 21:28 03/03/17 21:28 03/03/17 21:28 03/03/17 21:28 - Physical Exam Comments: 03/03/17 23:58 GENERAL: +Sitting in chair intoxicated. +Appearance is disheveled + Inhebriated. . Well developed, well nourished. Awake and alert. No acute distress. HEENT: Normocephalic, atraumatic. PERRLA, EOMI. No conjunctival pallor. Sclera are non- icteric. Moist mucous membranes. Oropharynx is clear. NECK: Supple. Full ROM. No JVD. Carotid pulses 2+ and symmetric, without bruits. No thyromegaly. No lymphadenopathy. CARDIOVASCULAR: Regular rate and rhythm. No murmurs, rubs, or gallops. Distal pulses are 2+ and symmetric. PULMONARY: No evidence of respiratory distress. Lungs clear to auscultation bilaterally. No wheezing, rales or rhonchi. ABDOMINAL: Soft. Non-tender. Non-distended. No rebound or guarding. No organomegaly. Normoactive bowel sounds. MUSCULOSKELETAL Normal range of motion at all joints. No bony deformities or tenderness. No CVA tenderness. EXTREMITIES: No cyanosis. No clubbing. No edema. No calf tenderness. SKIN: Warm and dry. Normal capillary refill. No rashes. No jaundice. NEUROLOGICAL: _Response to simple questions. Alert, awake, appropriate. Cranial nerves 2-12 intact. No deficits to light touch and temperature in face, upper extremities and lower extremities. No motor deficits in the in face, upper extremities and lower extremities. Normoreflexic in the upper and lower extremities. Normal speech. Toes are down- going bilaterally. PSYCHIATRIC: Cooperative. Good eye contact. Appropriate mood and affect. <Kamari Flores - Last Filed: 03/04/17 00:01> *DC/Admit/Observation/Transfer - Attestations Scribe Attestion: 03/04/17 00:01 Documentation prepared by Kamari Flores, acting as rn medical surgical for Sue Casanova MD/DO. <Kamari Flores - Last Filed: 03/04/17 00:01>
--- NOTE | 2017-03-04 06:58 | PDOC ---
*Physical Exam - Vital Signs Last Vital Signs Temp Pulse Resp BP Pulse Ox 98.1 F 86 20 99/56 92 L 03/03/17 21:28 03/03/17 21:28 03/03/17 21:28 03/03/17 21:28 03/03/17 21:28 *DC/Admit/Observation/Transfer Diagnosis at time of Disposition: Alcohol abuse, Alcohol intoxication - Discharge Dispostion Disposition: HOME Condition at time of disposition: Improved Admit: No - Patient Instructions Printed Discharge Instructions: DI for Alcohol Abuse
== END 2017-03-04 06:59 | disposition home or self-care (01) ==
LOC: JER 21:27
DX: F10.220 Alcohol dependence with intoxication, uncomplicated (principal); I10 Essential (primary) hypertension; C45.9 Mesothelioma, unspecified; Z59.0 Homelessness
CPT/HCPCS: 99282-25

== ENCOUNTER 2017-03-04 16:06 | Emergency (ER) | payer OTHER ==
[2017-03-04 16:25] VITALS: BP 145/88; PULSE 95; TEMP 98.2; BMI 21.5
--- NOTE | 2017-03-04 17:37 | PDOC ---
History of Present Illness - General History Source: Patient Exam Limitations: Intoxication - History of Present Illness Initial Comments: 03/04/17 17:59 The patient is a 62 year old male, with a significant past medical history of of alcohol dependency, mesothelioma, and untreated HTN, who presents to the ED intoxicated. Patient is well known to this facility, and is sitting in waiting room with no complaints. Patient denies any fever, chills, cough, headache, or dizziness. He denies any chest pain, shortness of breath, diaphoresis, or palpitations. Allergies: NKDA Past Surgical history: None reported Social history: ETOH abuse. Non smoker. No recreational drug use. <Marjorie Yarbrough - Last Filed: 03/04/17 17:58> <Robson Ball - Last Filed: 03/04/17 21:13> - General Chief Complaint: Alcohol intoxication Stated Complaint: INTOX Time Seen by Provider: 03/04/17 16:46 Past History <Marjorie Yarbrough - Last Filed: 03/04/17 17:58> - Past Medical History Anemia: No Asthma: No Cancer: Yes (mesothelioma) Cardiac Disorders: No CVA: No COPD: No CHF: No Dementia: No Diabetes: No GI Disorders: No Disorders: No HTN: Yes (no med) Hypercholesterolemia: No Kidney Stones: No Liver Disease: No Psychiatric Problems: Yes (alcoholism) Seizures: No Thyroid Disease: No - Surgical History Abdominal Surgery: No Appendectomy: No Cardiac Surgery: No Cholecystectomy: No Lung Surgery: No Neurologic Surgery: No Orthopedic Surgery: No - Family Disease History Family Disease History: CA: Mother - Reproductive History Testicular Surgery: No - Immunization History TDAP Vaccination: Yes Immunization Up to Date: Yes - Suicide/Smoking/Psychosocial Hx Smoking Status: No Smoking History: Never smoked Have you smoked in the past 12 months: No Number of Cigarettes Smoked Daily: 0 Cigars Per Day: 0 Information on smoking cessation initiated: No 'Breaking Loose' booklet given: 11/02/16 Hx Alcohol Use: No Drug/Substance Use Hx: No Substance Use Type: Alcohol Hx Substance Use Treatment: Yes ([facility] 11/02/16 to 11/05/16) <Robson Ball - Last Filed: 03/04/17 21:13> - Past Medical History Allergies/Adverse Reactions: Allergies Allergy/AdvReac Type Severity Reaction Status Date / Time Fish Containing Products Allergy Mild Verified 03/04/17 16:25 No Known Drug Allergies Allergy Verified 03/04/17 16:25 Home Medications: Ambulatory Orders NK [No Known Home Medication] 01/15/17 Review of Systems - Review of Systems Able to Perform ROS?: No Comments:: 03/04/17 17:59 Unable to obtain due to clinical condition. <Marjorie Yarbrough - Last Filed: 03/04/17 17:58> *Physical Exam - Vital Signs Last Vital Signs Temp Pulse Resp BP Pulse Ox 98.2 F 95 H 18 145/88 100 03/04/17 16:06 03/04/17 16:06 03/04/17 16:06 03/04/17 16:06 03/04/17 16:06 - Physical Exam Comments: 03/04/17 17:59 CONSTITUTIONAL: Well-appearing; in no apparent distress; weight-loss; inebriated HEAD: Normocephalic; atraumatic EYES: PERRL; EOM intact ENMT: External appears normal; normal oropharynx NECK: Supple; non-tender; no cervical lymphadenopathy CARD: Normal S1, S2; no murmurs, rubs, or gallops RESP: Normal chest excursion with respiration; breath sounds clear and equal bilaterally; no wheezes, rhonchi, or rales ABD: Soft, non-distended; non-tender; no palpable organomegaly, no palpable hernias EXT: Normal ROM in all four extremities; non-tender to palpation; distal pulses intact SKIN: Warm, dry, no rash NEURO: No focal neurological deficiencies. <Marjorie Yarbrough - Last Filed: 03/04/17 17:58> - Vital Signs Last Vital Signs Temp Pulse Resp BP Pulse Ox 98.2 F 95 H 18 145/88 100 03/04/17 16:06 03/04/17 16:06 03/04/17 16:06 03/04/17 16:06 03/04/17 16:06 <Robson Ball - Last Filed: 03/04/17 21:13> Medical Decision Making - Medical Decision Making 03/04/17 20:47 Patient is 62-year-old male with history of alcohol abuse, mesothelioma, well- known to this [facility] who presents the ER for acute alcohol intoxication. Patient is able to ambulate without difficulty and without ataxia. Patient ate a meal in the ER and appears clinically sober. Will discharge. There is no evidence of alcohol withdrawal at this time. <Robson Ball - Last Filed: 03/04/17 21:13> *DC/Admit/Observation/Transfer - Attestations Scribe Attestion: 03/04/17 18:00 Documentation prepared by Marjorie Yarbrough, acting as medical device assembler for Robson Ball MD. <Marjorie Yarbrough - Last Filed: 03/04/17 17:58> - Attestations Physician Attestion: 03/04/17 20:47 The documentation was prepared by the scribe under my direct supervision. I have reviewed the documentation which correctly represents the findings, medical decision-making and critical action taken by me. <Robson Ball - Last Filed: 03/04/17 21:13> Diagnosis at time of Disposition: Alcohol abuse with intoxication - Discharge Dispostion Disposition: HOME Condition at time of disposition: Stable - Referrals Referrals: pmd, one week [Other] - Patient Instructions Printed Discharge Instructions: DI for Alcohol Abuse
== END 2017-03-04 19:00 | disposition left against medical advice (07) ==
LOC: JER 16:06
DX: F10.220 Alcohol dependence with intoxication, uncomplicated (principal); I10 Essential (primary) hypertension; C45.9 Mesothelioma, unspecified; Z91.013 Allergy to seafood; Z59.0 Homelessness
CPT/HCPCS: 99282-25

== ENCOUNTER 2017-03-11 14:31 | Emergency (ER) | payer OTHER ==
[2017-03-11 14:56] VITALS: TEMP 97.9; BMI 31.5
--- NOTE | 2017-03-11 14:57 | PDOC ---
History of Present Illness - General Stated Complaint: REVISIT Time Seen by Provider: 03/11/17 14:43 - History of Present Illness Initial Comments: 03/11/17 16:19 Mr. De Leon is a 62 yo male with a significant PMH of alcohol abuse who presents requesting a sandwhich because he is hungry. He has no other complaints. Allergies: Fish products Soc: Alcohol daily Past History - Past Medical History Allergies/Adverse Reactions: Allergies Allergy/AdvReac Type Severity Reaction Status Date / Time Fish Containing Products Allergy Mild Verified 03/11/17 14:53 No Known Drug Allergies Allergy Verified 03/11/17 14:53 Home Medications: Ambulatory Orders NK [No Known Home Medication] 01/15/17 Anemia: No Asthma: No Cancer: Yes (mesothelioma) Cardiac Disorders: No CVA: No COPD: No CHF: No Dementia: No Diabetes: No GI Disorders: No Disorders: No HTN: Yes (no med) Hypercholesterolemia: No Kidney Stones: No Liver Disease: No Psychiatric Problems: Yes (alcoholism) Seizures: No Thyroid Disease: No - Surgical History Abdominal Surgery: No Appendectomy: No Cardiac Surgery: No Cholecystectomy: No Lung Surgery: No Neurologic Surgery: No Orthopedic Surgery: No - Family Disease History Family Disease History: CA: Mother - Reproductive History Testicular Surgery: No - Immunization History TDAP Vaccination: Yes Immunization Up to Date: Yes - Suicide/Smoking/Psychosocial Hx Smoking Status: No Smoking History: Never smoked Have you smoked in the past 12 months: No Number of Cigarettes Smoked Daily: 0 Cigars Per Day: 0 'Breaking Loose' booklet given: 11/02/16 Hx Alcohol Use: No Drug/Substance Use Hx: No Substance Use Type: Alcohol Hx Substance Use Treatment: Yes ([facility] 11/02/16 to 11/05/16) Review of Systems - Review of Systems Comments:: 03/11/17 16:24 GENERAL/CONSTITUTIONAL: No fever or chills. No weakness. HEAD, EYES, EARS, NOSE AND THROAT: No change in vision. No ear pain or discharge. No sore throat. CARDIOVASCULAR: No chest pain or shortness of breath RESPIRATORY: No cough, wheezing, or hemoptysis. GASTROINTESTINAL: No nausea, vomiting, diarrhea or constipation. GENITOURINARY: No dysuria, frequency, or change in urination. MUSCULOSKELETAL: No joint or muscle swelling or pain. No neck or back pain. SKIN: No rash NEUROLOGIC: No headache, vertigo, loss of consciousness, or change in strength/ sensation. ENDOCRINE: No increased thirst. No abnormal weight change HEMATOLOGIC/LYMPHATIC: No anemia, easy bleeding, or history of blood clots. ALLERGIC/IMMUNOLOGIC: No hives or skin allergy. *Physical Exam - Physical Exam Comments: 03/11/17 16:24 GENERAL: Awake, alert, and fully oriented, in no acute distress HEAD: No signs of trauma, normocephalic, atraumatic EYES: PERRLA, EOMI, sclera anicteric, conjunctiva clear ENT: Auricles normal inspection, hearing grossly normal, nares patent, oropharynx clear without exudates. Moist mucosa NECK: Normal ROM, supple, no lymphadenopathy, JVD, or masses LUNGS: No distress, speaks full sentences, clear to auscultation bilaterally HEART: Regular rate and rhythm, normal S1 and S2, no murmurs, rubs or gallops, peripheral pulses normal and equal bilaterally. ABDOMEN: Soft, nontender, normoactive bowel sounds. No guarding, no rebound. No masses EXTREMITIES: Normal inspection, Normal range of motion, no edema. No clubbing or cyanosis. NEUROLOGICAL: Cranial nerves II through XII grossly intact. Normal speech, normal gait, no focal sensorimotor deficits SKIN: Warm, Dry, normal turgor, no rashes or lesions noted. Medical Decision Making - Medical Decision Making 03/11/17 16:24 Patient in no acute distress and would like to leave. Gait normal, speech normal , cognitively intact. Discharging to home. *DC/Admit/Observation/Transfer Diagnosis at time of Disposition: Alcohol abuse - Discharge Dispostion Disposition: HOME - Patient Instructions Printed Discharge Instructions: DI for Alcohol Abuse
[2017-03-11 16:43] VITALS: BP 115/74; PULSE 75
--- NOTE | 2017-03-11 17:12 | PDOC ---
Attending Attestation - Resident Resident Name: Kelvin Kee - ED Attending Attestation I have performed the following: I have examined & evaluated the patient, The case was reviewed & discussed with the resident, I agree w/resident's findings & plan, Exceptions are as noted - HPI HPI: 03/11/17 17:08 62 M with h/o ETOH abuse, well known to this department and myself, presenting to ER because he "is hungry". Denies any other acute complaints. - Physicial Exam PE: 03/11/17 21:53 "GENERAL: Awake, alert, and fully oriented, in no acute distress HEAD: No signs of trauma EYES: PERRLA, EOMI, sclera anicteric, conjunctiva clear ENT: Auricles normal inspection, hearing grossly normal, nares patent, oropharynx clear without exudates. Moist mucosa NECK: Nontender, no stepoffs, Normal ROM, supple, no lymphadenopathy, JVD, or masses LUNGS: Breath sounds equal, clear to auscultation bilaterally. No wheezes, and no crackles HEART: Regular rate and rhythm, normal S1 and S2, no murmurs, rubs or gallops ABDOMEN: Soft, nontender, normoactive bowel sounds. No guarding, no rebound. No masses EXTREMITIES: Normal range of motion, no edema. No clubbing or cyanosis. No cords, erythema, or tenderness NEUROLOGICAL: Cranial nerves II through XII intact. 5/5 strength and sensation in all extremities, Normal speech, normal gait SKIN: Warm, Dry, normal turgor, no rashes or lesions noted. " - Medical Decision Making 03/11/17 21:53 62 M with no acute complaints other than hunger. Pt is well known to myself, and he clinically appears well, better than his baseline. - DC
== END 2017-03-11 16:35 | disposition home or self-care (01) ==
LOC: JER 14:31
DX: F10.220 Alcohol dependence with intoxication, uncomplicated (principal); I10 Essential (primary) hypertension; C45.9 Mesothelioma, unspecified; Z59.0 Homelessness
CPT/HCPCS: 99282-25

== ENCOUNTER 2017-03-11 21:10 | Emergency (ER) | payer OTHER ==
[2017-03-11 21:20] VITALS: BP 115/76; PULSE 98; TEMP 97; BMI 31.5
--- NOTE | 2017-03-11 22:55 | PDOC ---
History of Present Illness - History of Present Illness Initial Comments: 03/11/17 22:55 History of Present Illness: 61-year-old male with PMH of mesothelioma with an extension hx of EtOH abuse with multiple ER visits and admissions due to EtOH abuse is biba for public intoxication. Patient at this time is noted to have AOB. Patient is not slurring his speech at this time but is unstable in gait and is intoxicated. Patient is A&Ox3 to deny f/c,n/v/d, constipation, lightheadedness, dizziness, guerra, blurry vision, visual disturbance, chest pain, sob, neck/back pain, abd pain , urinary symptoms; urgency/frequency/hesitancy, hematuria. Patient denies any sick contacts, travel outside the [place] or contact with any sick individuals who have been outside the [place]. Past Medical History: ETOH abuse, Mesothelioma Family History: Mother with cancer Social History: EtOH abuse Surgical history: Denies Allergies: No known drug allergies ROS: CONSTITUTIONAL: Absent: fever, chills, diaphoresis, generalized weakness, malaise, loss of appetite HEENT: Absent: rhinorrhea, nasal congestion, throat pain, throat swelling, difficulty swallowing, mouth swelling, ear pain, eye pain, visual Changes CARDIOVASCULAR: Absent: chest pain, loss of consciousness, palpitations, irregular heart rate, peripheral edema RESPIRATORY: Absent: cough, shortness of breath, dyspnea with exertion, orthopnea, wheezing, stridor, hemoptysis GASTROINTESTINAL: Absent: abdominal pain, abdominal distension, nausea, vomiting, diarrhea, constipation, melena, hematochezia GENITOURINARY: Absent: dysuria, frequency, urgency, hesitancy, hematuria, flank pain, genital pain MUSCULOSKELETAL: Absent: myalgia, arthralgia, joint swelling SKIN: Absent: rash, itching, pallor HEMATOLOGIC/IMMUNOLOGIC: Absent: easy bleeding, easy bruising, lymphadenopathy, frequent infections ENDOCRINE: Absent: unexplained weight gain, unexplained weight loss, heat intolerance, cold intolerance NEUROLOGIC: Absent: headache, focal weakness or paresthesias, dizziness, unsteady gait, seizure, mental status changes, bladder or bowel incontinence PSYCHIATRIC: Absent:+EtOH abuse, No depression or anxiety.anxiety, depression, suicidal or homicidal ideation, hallucinations. GENERAL: Well developed, well nourished. Awake and alert. No acute distress. HEENT: Normocephalic, atraumatic. PERRLA, EOMI. No conjunctival pallor. Sclera are non- icteric. Moist mucous membranes. Oropharynx is clear. NECK: Supple. Full ROM. No JVD. Carotid pulses 2+ and symmetric, without bruits. No thyromegaly. No lymphadenopathy. CARDIOVASCULAR: Regular rate and rhythm. No murmurs, rubs, or gallops. Distal pulses are 2+ and symmetric. PULMONARY: No evidence of respiratory distress. Lungs clear to auscultation bilaterally. No wheezing, rales or rhonchi. ABDOMINAL: Soft. Non-tender. Non-distended. No rebound or guarding. No organomegaly. Normoactive bowel sounds. MUSCULOSKELETAL Normal range of motion at all joints. No bony deformities or tenderness. No CVA tenderness. EXTREMITIES: No cyanosis. No clubbing. No edema. No calf tenderness. SKIN: Warm and dry. Normal capillary refill. No rashes. No jaundice. NEUROLOGICAL: Alert, awake, appropriate. Cranial nerves 2-12 intact. No deficits to light touch and temperature in face, upper extremities and lower extremities. No motor deficits in the in face, upper extremities and lower extremities. Normoreflexic in the upper and lower extremities. Normal speech. Toes are down- going bilaterally. Gait is normal without ataxia. PSYCHIATRIC: Cooperative. Good eye contact. Appropriate mood and affect. Medical Decision Making Patient reassessment: Patient has been noted to be walking and emergency department without difficulty or ataxic gait. Patient is able to communicate clearly and has straight clear mentation. I will discharge this patient to follow-up with outpatient PCP. Patient does not indicate desire at this time for detox. I discussed the physical exam findings, ancillary test results and final diagnoses with the patient. I answered all of the patient's questions. The patient was satisfied with the care received and felt comfortable with the discharge plan and treatment plan. The patient will call their primary care physician within 24 hours to arrange follow-up and will return to the Emergency Department with any new, persistent or worsening symptoms. Printed Discharge Instructions: DI for Alcohol Abuse Additional Instructions: Please follow-up with the included referral for PCP. Return to emergency room if shortness of breath, wheezing, fever greater than 101, chest pain, or fainting occurs. <Tahir Lassiter - Last Filed: 03/12/17 01:54> <Dayanara Son - Last Filed: 03/12/17 06:22> - General Chief Complaint: Alcohol intoxication Stated Complaint: BACK HURT, INTOXICATION Time Seen by Provider: 03/11/17 22:06 Past History - Past Medical History Anemia: No Asthma: No Cancer: Yes (mesothelioma) Cardiac Disorders: No CVA: No COPD: No CHF: No Dementia: No Diabetes: No GI Disorders: No Disorders: No HTN: Yes (no med) Hypercholesterolemia: No Kidney Stones: No Liver Disease: No Psychiatric Problems: Yes (alcoholism) Seizures: No Thyroid Disease: No - Surgical History Abdominal Surgery: No Appendectomy: No Cardiac Surgery: No Cholecystectomy: No Lung Surgery: No Neurologic Surgery: No Orthopedic Surgery: No - Family Disease History Family Disease History: CA: Mother - Reproductive History Testicular Surgery: No - Immunization History TDAP Vaccination: Yes Immunization Up to Date: Yes - Suicide/Smoking/Psychosocial Hx Smoking Status: No Smoking History: Never smoked Have you smoked in the past 12 months: No Number of Cigarettes Smoked Daily: 0 Cigars Per Day: 0 'Breaking Loose' booklet given: 11/02/16 Hx Alcohol Use: No Drug/Substance Use Hx: No Substance Use Type: Alcohol Hx Substance Use Treatment: Yes ([facility] 11/02/16 to 11/05/16) <Tahir Lassiter - Last Filed: 03/12/17 01:54> <Dayanara Son - Last Filed: 03/12/17 06:22> - Past Medical History Allergies/Adverse Reactions: Allergies Allergy/AdvReac Type Severity Reaction Status Date / Time Fish Containing Products Allergy Mild Verified 03/11/17 21:20 No Known Drug Allergies Allergy Verified 03/11/17 21:20 Home Medications: Ambulatory Orders NK [No Known Home Medication] 01/15/17 *Physical Exam - Vital Signs Last Vital Signs Temp Pulse Resp BP Pulse Ox 97 F L 98 H 18 115/76 99 03/11/17 21:18 03/11/17 21:18 03/11/17 21:18 03/11/17 21:18 03/11/17 21:18 <Tahir Lassiter - Last Filed: 03/12/17 01:54> - Vital Signs Last Vital Signs Temp Pulse Resp BP Pulse Ox 97 F L 98 H 18 115/76 99 03/11/17 21:18 03/11/17 21:18 03/11/17 21:18 03/11/17 21:18 03/11/17 21:18 <Dayanara Son - Last Filed: 03/12/17 06:22> *DC/Admit/Observation/Transfer <SravaniTahir - Last Filed: 03/12/17 01:54> <Dayanara Son - Last Filed: 03/12/17 06:22> Diagnosis at time of Disposition: Alcohol abuse, Alcohol intoxication - Discharge Dispostion Disposition: HOME Condition at time of disposition: Improved - Patient Instructions Printed Discharge Instructions: DI for Alcohol Abuse Additional Instructions: Avoid drinking alcohol Return to the ER for any concerns
--- NOTE | 2017-03-12 | PDOC ---
*Physical Exam - Vital Signs Last Vital Signs Temp Pulse Resp BP Pulse Ox 97 F L 98 H 18 115/76 99 03/11/17 21:18 03/11/17 21:18 03/11/17 21:18 03/11/17 21:18 03/11/17 21:18 - Physical Exam Comments: 03/12/17 00:00 The patient was examined by [APPLE Lassiter] under my direct supervision. I personally evaluated the patient. I concur with the above findings and the plan of care.
== END 2017-03-12 06:33 | disposition home or self-care (01) ==
LOC: JER 21:10
DX: F10.220 Alcohol dependence with intoxication, uncomplicated (principal); C45.9 Mesothelioma, unspecified; Z59.0 Homelessness
CPT/HCPCS: 99282-25

== ENCOUNTER 2017-03-12 13:01 | Emergency (ER) | payer OTHER ==
--- NOTE | 2017-03-12 13:11 | PDOC ---
Attending Attestation - Resident Resident Name: Magen Keeorn - ED Attending Attestation I have performed the following: I have examined & evaluated the patient, The case was reviewed & discussed with the resident, I agree w/resident's findings & plan, Exceptions are as noted - HPI HPI: 03/13/17 09:10 Pt presents to the ED requesting food. Patient is a chronic alcoholic and a frequent visitor to the ED and is very well known to me. - Physicial Exam PE: 03/13/17 09:12 Agree with resident's exam. Patient is oriented x 3 and is ambulatory with a steady gait. - Medical Decision Making 03/13/17 09:12 Patient presents to the ED requesting food. Denies medical complaints. Will discharge home.
--- NOTE | 2017-03-12 13:15 | PDOC ---
History of Present Illness - General Stated Complaint: INTOX - History of Present Illness Initial Comments: 03/12/17 15:03 Mr. De Leon is a 62 yo male well known to the ED presenting by EMS for acute intoxication. Per patient he has zero complaints and would like a tray of food to eat. Allergies: Fish products Past History - Past Medical History Allergies/Adverse Reactions: Allergies Allergy/AdvReac Type Severity Reaction Status Date / Time Fish Containing Products Allergy Mild Verified 03/12/17 13:22 No Known Drug Allergies Allergy Verified 03/12/17 13:22 Home Medications: Ambulatory Orders NK [No Known Home Medication] 01/15/17 Anemia: No Asthma: No Cancer: Yes (mesothelioma) Cardiac Disorders: No CVA: No COPD: No CHF: No Dementia: No Diabetes: No GI Disorders: No Disorders: No HTN: Yes (no med) Hypercholesterolemia: No Kidney Stones: No Liver Disease: No Psychiatric Problems: Yes (alcoholism) Seizures: No Thyroid Disease: No - Surgical History Abdominal Surgery: No Appendectomy: No Cardiac Surgery: No Cholecystectomy: No Lung Surgery: No Neurologic Surgery: No Orthopedic Surgery: No - Family Disease History Family Disease History: CA: Mother - Reproductive History Testicular Surgery: No - Immunization History TDAP Vaccination: Yes Immunization Up to Date: Yes - Suicide/Smoking/Psychosocial Hx Smoking Status: No Smoking History: Never smoked Have you smoked in the past 12 months: No Number of Cigarettes Smoked Daily: 0 Cigars Per Day: 0 'Breaking Loose' booklet given: 11/02/16 Hx Alcohol Use: No Drug/Substance Use Hx: No Substance Use Type: Alcohol Hx Substance Use Treatment: Yes ([facility] [place] [facility] 11/05/16) Review of Systems - Review of Systems Comments:: 03/12/17 14:00 GENERAL/CONSTITUTIONAL: No fever or chills. No weakness. HEAD, EYES, EARS, NOSE AND THROAT: No change in vision. No ear pain or discharge. No sore throat. CARDIOVASCULAR: No chest pain or shortness of breath RESPIRATORY: No cough, wheezing, or hemoptysis. GASTROINTESTINAL: No nausea, vomiting, diarrhea or constipation. GENITOURINARY: No dysuria, frequency, or change in urination. MUSCULOSKELETAL: No joint or muscle swelling or pain. No neck or back pain. SKIN: No rash NEUROLOGIC: No headache, vertigo, loss of consciousness, or change in strength/ sensation. ENDOCRINE: No increased thirst. No abnormal weight change HEMATOLOGIC/LYMPHATIC: No anemia, easy bleeding, or history of blood clots. ALLERGIC/IMMUNOLOGIC: No hives or skin allergy. *Physical Exam - Physical Exam Comments: 03/12/17 14:00 GENERAL: Awake, alert, and fully oriented, in no acute distress HEAD: No signs of trauma, normocephalic, atraumatic EYES: PERRLA, EOMI, sclera anicteric, conjunctiva clear ENT: Auricles normal inspection, hearing grossly normal, nares patent, oropharynx clear without exudates. Moist mucosa NECK: Normal ROM, supple, no lymphadenopathy, JVD, or masses LUNGS: No distress, speaks full sentences, clear to auscultation bilaterally HEART: Regular rate and rhythm, normal S1 and S2, no murmurs, rubs or gallops, peripheral pulses normal and equal bilaterally. ABDOMEN: Soft, nontender, normoactive bowel sounds. No guarding, no rebound. No masses EXTREMITIES: Normal inspection, Normal range of motion, no edema. No clubbing or cyanosis. NEUROLOGICAL: Cranial nerves II through XII grossly intact. Normal speech, normal gait, no focal sensorimotor deficits SKIN: Warm, Dry, normal turgor, no rashes or lesions noted. Medical Decision Making - Medical Decision Making Mr. De Leon presented requesting something to eat. Was given food and will be discharged to home. 03/12/17 15:59 Patient mentating appropriately. Patient alert and oriented. [place] stable. Will discharge to home. *DC/Admit/Observation/Transfer Diagnosis at time of Disposition: Alcohol abuse - Discharge Dispostion Disposition: HOME - Patient Instructions Printed Discharge Instructions: DI for Alcohol Abuse
[2017-03-12 13:25] VITALS: TEMP 98.1; BMI 30.1
[2017-03-12 16:23] VITALS: BP 110/64; PULSE 65
== END 2017-03-12 16:21 | disposition home or self-care (01) ==
LOC: JER 13:01
DX: F10.120 Alcohol abuse with intoxication, uncomplicated (principal); C45.9 Mesothelioma, unspecified
CPT/HCPCS: 99283-25

== ENCOUNTER 2017-03-17 14:00 | Emergency (ER) | payer OTHER ==
[2017-03-17 14:25] VITALS: BP 111/62; PULSE 78; TEMP 98.1; BMI 35.9
--- NOTE | 2017-03-17 14:57 | PDOC ---
History of Present Illness - General Chief Complaint: Alcohol intoxication Stated Complaint: REVISIT Time Seen by Provider: 03/17/17 14:07 Past History - Past Medical History Allergies/Adverse Reactions: Allergies Allergy/AdvReac Type Severity Reaction Status Date / Time Fish Containing Products Allergy Mild Verified 03/12/17 13:22 No Known Drug Allergies Allergy Verified 03/12/17 13:22 Home Medications: Ambulatory Orders NK [No Known Home Medication] 01/15/17 Anemia: No Asthma: No Cancer: Yes (mesothelioma) Cardiac Disorders: No CVA: No COPD: No CHF: No Dementia: No Diabetes: No GI Disorders: No Disorders: No HTN: Yes (no med) Hypercholesterolemia: No Kidney Stones: No Liver Disease: No Psychiatric Problems: Yes (alcoholism) Seizures: No Thyroid Disease: No - Surgical History Abdominal Surgery: No Appendectomy: No Cardiac Surgery: No Cholecystectomy: No Lung Surgery: No Neurologic Surgery: No Orthopedic Surgery: No - Family Disease History Family Disease History: CA: Mother - Reproductive History Testicular Surgery: No - Immunization History TDAP Vaccination: Yes Immunization Up to Date: Yes - Suicide/Smoking/Psychosocial Hx Smoking Status: No Smoking History: Smoker current status UNK Have you smoked in the past 12 months: No Number of Cigarettes Smoked Daily: 0 Cigars Per Day: 0 'Breaking Loose' booklet given: 11/02/16 Hx Alcohol Use: Yes Drug/Substance Use Hx: No Substance Use Type: Alcohol Hx Substance Use Treatment: Yes ([facility] 11/02/16 to 11/05/16) *Physical Exam - Vital Signs Last Vital Signs Temp Pulse Resp BP Pulse Ox 98.1 F 78 20 111/62 96 03/17/17 14:00 03/17/17 14:00 03/17/17 14:00 03/17/17 14:00 03/17/17 14:00 *DC/Admit/Observation/Transfer Diagnosis at time of Disposition: Alcohol abuse, Alcohol intoxication, Eloped - Discharge Dispostion Disposition: ELOPED
== END 2017-03-17 18:30 | disposition left against medical advice (07) ==
LOC: JER 14:00
DX: F10.220 Alcohol dependence with intoxication, uncomplicated (principal); I10 Essential (primary) hypertension; C45.9 Mesothelioma, unspecified; Z59.0 Homelessness
CPT/HCPCS: 99281-25

== ENCOUNTER → 2017-03-18 | Emergency (ER) | payer OTHER ==
[~2017-03-18] MED LIST changes: +FOLIC ACID 1 MG TABLET (FP) PO ONE; +MULTIVITAMINS (DAILY MVI) TABLET (FP) PO ONE; +POTASSIUM CHLORIDE TABS 20 MEQ TABLET.ER (FP) PO ONE; +THIAMINE HCL 100 MG TABLET (FP) PO ONE; -chlordiazePOXIDE HCL 25 MG CAPSULE PO ONE
[2017-03-18 11:54] VITALS: BP 99/40; PULSE 90; TEMP 97.8; BMI 33.0
--- NOTE | 2017-03-18 11:58 | PDOC ---
History of Present Illness - General History Source: Patient Exam Limitations: No Limitations - History of Present Illness Initial Comments: 03/18/17 13:18 Patient is a 62 year old male with a significant past medical history of alcohol dependency and mesothelioma who was brought by the EMS to the ED s/p intoxicated. Patient is a well known patient to this facility. Patient is lying down and is responsive to commands. He has no complaints but requests a tray of food. Denies chest pain, SOB. Denies dysuria, constipation, diarrhea. Denies nausea, coughing, vomiting. Denies any other symptoms. Allergies: None PMD: None <Kamari Flores - Last Filed: 03/18/17 13:17> <Skye Rashid - Last Filed: 03/18/17 18:15> - General Chief Complaint: Alcohol intoxication Stated Complaint: Alcohol intoxication Time Seen by Provider: 03/18/17 11:47 Past History <Kamari Flores - Last Filed: 03/18/17 13:17> - Past Medical History Anemia: No Asthma: No Cancer: Yes (mesothelioma) Cardiac Disorders: No CVA: No COPD: No CHF: No Dementia: No Diabetes: No GI Disorders: No Disorders: No HTN: Yes (no med) Hypercholesterolemia: No Kidney Stones: No Liver Disease: No Psychiatric Problems: Yes (alcoholism) Seizures: No Thyroid Disease: No - Surgical History Abdominal Surgery: No Appendectomy: No Cardiac Surgery: No Cholecystectomy: No Lung Surgery: No Neurologic Surgery: No Orthopedic Surgery: No - Family Disease History Family Disease History: CA: Mother - Reproductive History Testicular Surgery: No - Immunization History TDAP Vaccination: Yes Immunization Up to Date: Yes - Suicide/Smoking/Psychosocial Hx Smoking Status: No Smoking History: Smoker current status UNK Have you smoked in the past 12 months: No Number of Cigarettes Smoked Daily: 0 Cigars Per Day: 0 Information on smoking cessation initiated: No 'Breaking Loose' booklet given: 11/02/16 Hx Alcohol Use: Yes Drug/Substance Use Hx: No Substance Use Type: Alcohol Hx Substance Use Treatment: Yes ([facility] 11/02/16 to 11/05/16) <Skye Rashid - Last Filed: 03/18/17 18:15> - Past Medical History Allergies/Adverse Reactions: Allergies Allergy/AdvReac Type Severity Reaction Status Date / Time Fish Containing Products Allergy Mild Verified 03/12/17 13:22 No Known Drug Allergies Allergy Verified 03/12/17 13:22 Home Medications: Ambulatory Orders NK [No Known Home Medication] 01/15/17 Review of Systems - Review of Systems Able to Perform ROS?: No Comments:: 03/18/17 13:19 Patient is intoxicated, unable to obtain ROS. <Kamari Flores - Last Filed: 03/18/17 13:17> *Physical Exam - Vital Signs Last Vital Signs Temp Pulse Resp BP Pulse Ox 97.8 F 90 18 99/40 90 L 03/18/17 11:50 03/18/17 11:50 03/18/17 11:50 03/18/17 11:50 03/18/17 11:55 - Physical Exam Comments: 03/18/17 13:18 GENERAL: +Intoxicated. Moving all extremities. No slurred speech. No External signs of trauma. Awake, alert, and fully oriented, in no acute distress HEAD: No signs of trauma EYES: PERRLA, EOMI, sclera anicteric, conjunctiva clear ENT: Auricles normal inspection, hearing grossly normal, nares patent, oropharynx clear without exudates. Moist mucosa NECK: Normal ROM, supple, no lymphadenopathy, JVD, or masses LUNGS: Breath sounds equal, clear to auscultation bilaterally. No wheezes, and no crackles HEART: Regular rate and rhythm, normal S1 and S2, no murmurs, rubs or gallops ABDOMEN: Soft, nontender, normoactive bowel sounds. No guarding, no rebound. No masses EXTREMITIES: Normal range of motion, no edema. No clubbing or cyanosis. No cords, erythema, or tenderness NEUROLOGICAL: Cranial nerves II through XII grossly intact. Normal speech, normal gait SKIN: Warm, Dry, normal turgor, no rashes or lesions noted. <Kamari Flores - Last Filed: 03/18/17 13:17> - Vital Signs Last Vital Signs Temp Pulse Resp BP Pulse Ox 97.8 F 90 18 99/40 90 L 03/18/17 11:50 03/18/17 11:50 03/18/17 11:50 03/18/17 11:50 03/18/17 11:50 <Skye Rashid - Last Filed: 03/18/17 18:15> ED Treatment Course - LABORATORY CBC & Chemistry Diagram: 03/18/17 12:14 03/18/17 12:26 - ADDITIONAL ORDERS Additional order review: Laboratory Results 03/18/17 03/18/17 12:26 12:26 Sodium 145 Potassium 3.3 L Chloride 106 Carbon Dioxide 32 Anion Gap 7 L BUN 6 L D Creatinine 0.5 L D Creat Clearance w eGFR > 60 Random Glucose 87 Calcium 8.3 L Total Bilirubin 0.6 D AST 48 H D ALT 34 Alkaline Phosphatase 127 H Total Protein 6.5 Albumin 2.9 L Alcohol, Quantitative 339.3 H* 03/18/17 12:14 RBC 3.58 L MCV 96.2 H MCHC 32.8 RDW 15.3 MPV 6.7 L D Neutrophils % 58.2 Lymphocytes % 31.8 Monocytes % 6.4 Eosinophils % 2.3 Basophils % 1.3 <Kamari Flores - Last Filed: 03/18/17 13:17> - LABORATORY CBC & Chemistry Diagram: 03/18/17 12:14 03/18/17 12:26 <Skye Rashid - Last Filed: 03/18/17 18:15> Medical Decision Making - Medical Decision Making 03/18/17 12:40 62yo male presents intoxicated after partying last night after watching the [employer] win -pt without external signs of acute trauma. Healing ecchymosis to L eye, nothing new. Moves all extremities. Tolerating PO -labs -etoh level -allow pt to metabolize and reassess 03/18/17 18:02 pt up ambulatory. tolerated po. speaking in full sentences without slurring his words. Steady gait 03/18/17 18:14 pt eloped from the ED. <Skye Rashid - Last Filed: 03/18/17 18:15> *DC/Admit/Observation/Transfer - Attestations Scribe Attestion: 03/18/17 13:20 Documentation prepared by Kamari Flores, acting as medical center manager for Skye Rashid DO. <Kamari Floers - Last Filed: 03/18/17 13:17> - Attestations Physician Attestion: 03/18/17 18:03 IDr. Skye, DO, attest that this document has been prepared under my direction and personally reviewed by me in its entirety. I further attest, that it accurately reflects all work, treatment, procedures and medical decision -making performed by me. <Skye Rashid - Last Filed: 03/18/17 18:15> Diagnosis at time of Disposition: Alcohol abuse - Discharge Dispostion Disposition: ELOPED Condition at time of disposition: Unchanged/Unknown - Referrals Referrals: Smith Snowden MD [Staff Physician] - - Patient Instructions Printed Discharge Instructions: DI for Alcohol Abuse Additional Instructions: Please stop drinking alcohol.
[2017-03-18 12:50] LABS: BASOPHIL 1.3 % (0-2.0); EOSINOPHIL 2.3 % (0-4.5); MCH 31.5 pg (25.7-33.7); MCHC 32.8 g/dl (32.0-35.9); MEAN CELL VOLUME 96.2 fl (80-96); MEAN PLT VOLUME 6.7 fl (7.5-11.1); NEUTROPHILS 58.2 % (42.8-82.8); PLATELET COUNT 329 K/MM3 (134-434); RDW 15.3 % (11.9-15.9); WHITE BLOOD COUNT 6.1 K/mm3 (4.0-10.0)
[2017-03-18 13:05] LABS: ALBUMIN 2.9 g/dl (3.4-5.0); ANION GAP 7 (8-16); CALCIUM 8.3 mg/dL (8.5-10.1); CO2 32 mmol/L (21-32); CREATININE 0.5 mg/dL (0.7-1.3); GLUCOSE,RANDOM 87 mg/dL (74-106); SGOT/AST 48 U/L (15-37); SGPT/ALT 34 U/L (12-78)
[2017-03-18 13:07] LABS: ALK PHOS 127 U/L (45-117); BILIRUBIN,TOTAL 0.6 mg/dL (0.2-1.0); TOT PROT 6.5 g/dl (6.4-8.2)
== END | disposition left against medical advice (07) ==
LOC: JER 11:32
DX: F10.220 Alcohol dependence with intoxication, uncomplicated (principal); I10 Essential (primary) hypertension; C45.9 Mesothelioma, unspecified
CPT/HCPCS: 36415; 80053; 80307; 85025; 99282-25

== ENCOUNTER 2017-03-20 19:58 | Emergency (ER) | payer OTHER ==
[2017-03-20 20:22] VITALS: BP 128/72; PULSE 87; TEMP 97.8; BMI 33.0
--- NOTE | 2017-03-21 03:40 | PDOC ---
History of Present Illness - General Chief Complaint: Lethargy Stated Complaint: FATIGUE History Source: Patient - History of Present Illness Initial Comments: 03/21/17 03:35 62 yo h/o etoh abuse htn, here today with c/o intoxication. pt here almost daily. seen by myself. no current other complaints. denies coingestant. was recently arranged to go to [facility] for detox, and re- presented to the ED few hours after dc. 03/21/17 03:36 Past History - Past Medical History Allergies/Adverse Reactions: Allergies Allergy/AdvReac Type Severity Reaction Status Date / Time Fish Containing Products Allergy Mild Verified 03/12/17 13:22 No Known Drug Allergies Allergy Verified 03/12/17 13:22 Home Medications: Ambulatory Orders NK [No Known Home Medication] 01/15/17 Anemia: No Asthma: No Cancer: Yes (mesothelioma) Cardiac Disorders: No CVA: No COPD: No CHF: No Dementia: No Diabetes: No GI Disorders: No Disorders: No HTN: Yes (no med) Hypercholesterolemia: No Kidney Stones: No Liver Disease: No Psychiatric Problems: Yes (alcoholism) Seizures: No Thyroid Disease: No - Surgical History Abdominal Surgery: No Appendectomy: No Cardiac Surgery: No Cholecystectomy: No Lung Surgery: No Neurologic Surgery: No Orthopedic Surgery: No - Family Disease History Family Disease History: CA: Mother - Reproductive History Testicular Surgery: No - Immunization History TDAP Vaccination: Yes Immunization Up to Date: Yes - Suicide/Smoking/Psychosocial Hx Smoking Status: No Smoking History: Never smoked Have you smoked in the past 12 months: No Number of Cigarettes Smoked Daily: 0 Cigars Per Day: 0 Information on smoking cessation initiated: No 'Breaking Loose' booklet given: 11/02/16 Hx Alcohol Use: Yes Drug/Substance Use Hx: No Substance Use Type: Alcohol Hx Substance Use Treatment: Yes ([facility] 11/02/16 to 11/05/16) Review of Systems - Review of Systems Constitutional: No: Chills, Diaphoresis Respiratory: No: Cough, Orthopnea Cardiac (ROS): No: Chest Pain, Edema ABD/GI: No: Abdominal Distended All Other Systems: Reviewed and Negative *Physical Exam - Vital Signs Last Vital Signs Temp Pulse Resp BP Pulse Ox 97.8 F 87 18 128/72 95 03/20/17 20:16 03/20/17 20:16 03/20/17 20:16 03/20/17 20:16 03/20/17 20:16 - Physical Exam General Appearance: Yes: Appropriately Dressed Neck: positive: Trachea midline Respiratory/Chest: positive: Lungs Clear, Normal Breath Sounds Cardiovascular: positive: Regular Rhythm, Regular Rate, S1, S2 Gastrointestinal/Abdominal: positive: Normal Bowel Sounds, Flat, Soft. negative : Tender Musculoskeletal: positive: Normal Inspection Integumentary: positive: Normal Color, Dry, Warm Medical Decision Making - Medical Decision Making 03/21/17 03:38 62 yo male with h/o etoh abuse here with intox. will reassess when sober in am. and discharge appropriately. 03/21/17 06:23 pt with c/o sob, lungs exam clear. requesting duoneb. given. oxygen sats 95 percent. ambulating without difficulty. *DC/Admit/Observation/Transfer Diagnosis at time of Disposition: Alcohol intoxication - Discharge Dispostion Condition at time of disposition: Improved Admit: No - Patient Instructions Printed Discharge Instructions: Alcoholism (Alternative Therapy)
[2017-03-21] MEDS ORDERED: ALBUTEROL SO4 2.5/IPRATROPIUM 0.5 INH SOL 3 ML VIAL.NEB. NEB ONE (06:19)
== END 2017-03-21 07:30 | disposition home or self-care (01) ==
LOC: JER 19:58
PROC: 3E0F7GC Introduction of Other Therapeutic Substance into Respiratory Tract, Via Natural or Artificial Opening (ICD-10-PCS; principal; 2017-03-20)
DX: F10.220 Alcohol dependence with intoxication, uncomplicated (principal); I10 Essential (primary) hypertension; Z59.0 Homelessness; R06.02 Shortness of breath
CPT/HCPCS: 94640; 99281-25

== ENCOUNTER 2017-03-22 21:56 | Emergency (ER) | payer OTHER ==
--- NOTE | 2017-03-22 22:09 | PDOC ---
History of Present Illness - General History Source: Patient Exam Limitations: No Limitations - History of Present Illness Initial Comments: 62 yo M well known to this ED presents with EtOH intoxication. He was brought in by EMS for the same. He denies any recent trauma, however, he has bruising to L upper eyelid. History limited by intoxication. <Fabiana Woodard - Last Filed: 03/22/17 23:02> <Lorri Kumar - Last Filed: 03/23/17 02:07> - General Stated Complaint: INTOXICATED Time Seen by Provider: 03/22/17 22:08 Past History - Past Medical History Anemia: No Asthma: No Cancer: Yes (mesothelioma) Cardiac Disorders: No CVA: No COPD: No CHF: No Dementia: No Diabetes: No GI Disorders: No Disorders: No HTN: Yes (no med) Hypercholesterolemia: No Kidney Stones: No Liver Disease: No Psychiatric Problems: Yes (alcoholism) Seizures: No Thyroid Disease: No - Surgical History Abdominal Surgery: No Appendectomy: No Cardiac Surgery: No Cholecystectomy: No Lung Surgery: No Neurologic Surgery: No Orthopedic Surgery: No - Family Disease History Family Disease History: CA: Mother - Reproductive History Testicular Surgery: No - Immunization History TDAP Vaccination: Yes Immunization Up to Date: Yes - Suicide/Smoking/Psychosocial Hx Smoking Status: No Smoking History: Never smoked Have you smoked in the past 12 months: No Number of Cigarettes Smoked Daily: 0 Cigars Per Day: 0 'Breaking Loose' booklet given: 11/02/16 Hx Alcohol Use: Yes Drug/Substance Use Hx: No Substance Use Type: Alcohol Hx Substance Use Treatment: Yes ([facility] 11/02/16 to 11/05/16) <Fabiana Woodard - Last Filed: 03/22/17 23:02> <Lorri Kumar - Last Filed: 03/23/17 02:07> - Past Medical History Allergies/Adverse Reactions: Allergies Allergy/AdvReac Type Severity Reaction Status Date / Time Fish Containing Products Allergy Mild Verified 03/22/17 22:12 No Known Drug Allergies Allergy Verified 03/22/17 22:12 Home Medications: Ambulatory Orders NK [No Known Home Medication] 01/15/17 Review of Systems - Review of Systems Able to Perform ROS?: No (intox) <Fabiana Woodard - Last Filed: 03/22/17 23:02> *Physical Exam - Physical Exam Comments: GENERAL: Awake, alert, +AOB. HEAD: +Small ecchymosis to the L upper eyelid. EYES: PERRLA, EOMI, sclera anicteric, conjunctiva clear. +Horizontal nystagmus. ENT: Auricles normal inspection, hearing grossly normal, nares patent, oropharynx clear without exudates. Moist mucosa. NECK: Normal ROM, supple, no lymphadenopathy, JVD, or masses. LUNGS: Breath sounds equal, clear to auscultation bilaterally. No wheezes, and no crackles. HEART: Regular rate and rhythm, normal S1 and S2, no murmurs, rubs or gallops. ABDOMEN: Soft, nontender, normoactive bowel sounds. No guarding, no rebound. No masses. EXTREMITIES: Normal range of motion, no edema. No clubbing or cyanosis. No cords, erythema, or tenderness. NEUROLOGICAL: Cranial nerves II through XII grossly intact. Normal speech, normal gait. SKIN: Warm, Dry, normal turgor, no rashes or lesions noted. <Fabiana Woodard - Last Filed: 03/22/17 23:02> - Vital Signs Last Vital Signs Temp Pulse Resp BP Pulse Ox 97.4 F L 98 H 14 106/79 98 03/22/17 22:13 03/22/17 22:13 03/22/17 22:13 03/22/17 22:13 03/22/17 22:13 <Lorri Kumar - Last Filed: 03/23/17 02:07> Medical Decision Making - Medical Decision Making 03/22/17 23:05 Unclear if patient was recently imaged at another hospital, however, no recent CTs obtained here. Will obtain CTH and facial bones. <Fabiana Woodard - Last Filed: 03/22/17 23:02> - Medical Decision Making 03/23/17 02:07 Patient Name: MANUEL GUERRA THIS IS A PRELIMINARY REPORT FROM IMAGING TITLE I ASSISTANT DATE OF SERVICE: 2017-03-23 00:15:41 IMAGES: 467 EXAM: CT MAXILLOFACIAL HISTORY:Trauma COMPARISON: None. FINDINGS: Nasal Bones: There is a minimally displaced nasal bone fracture Orbits and globes: normal Zygomatic areches: Normal with no fracture Mandaible:Normal with no fracture Soft tissues: There is a hematoma overlying the right superior orbital room and left superior orbital There is a rounded density in the right maxillary sinus suggesting a mucus retention cyst. There is a smaller rounded density in the left maxillary sinus also likely reflecting a mucus retention cyst. IMPRESSION: Minimally displaced nasal bone fracture THIS DOCUMENT HAS BEEN ELECTRONICALLY SIGNED <Lorri Kumar - Last Filed: 03/23/17 02:07> *DC/Admit/Observation/Transfer <Fabiana Woodard - Last Filed: 03/22/17 23:02> <Lorri Kumar - Last Filed: 03/23/17 02:07> Diagnosis at time of Disposition: Alcohol abuse, Alcohol intoxication - Patient Instructions Printed Discharge Instructions: DI for Alcohol Abuse
[2017-03-22 22:35] VITALS: BP 106/79; PULSE 98; TEMP 97.4; BMI 33.0
== END 2017-03-23 05:58 | disposition home or self-care (01) ==
LOC: JER 21:56
DX: F10.220 Alcohol dependence with intoxication, uncomplicated (principal); I10 Essential (primary) hypertension; Z91.013 Allergy to seafood
CPT/HCPCS: 70450-TC; 70486-TC; 99281-25

== ENCOUNTER 2017-03-23 14:53 | Emergency (ER) | payer OTHER ==
--- NOTE | 2017-03-23 15:32 | PDOC ---
History of Present Illness <Jacob Bertrand - Last Filed: 03/23/17 15:30> - History of Present Illness Initial Comments: 03/23/17 15:58 The patient is a 62 year old male with a significant past medical history of alcohol dependency and mesothelioma, who was brought by the EMS to the ED for intoxication. Patient is a well known patient to this facility. Patient is lying down and is responsive to commands. He reports feeling SOB, "but not more than usual", and also reports feeling mild "chest pain". Denies dysuria, constipation, diarrhea. Denies nausea, coughing, vomiting. Denies any other symptoms. Allergies: None PMD: None <Ernestine Snyder - Last Filed: 03/23/17 16:35> - General Chief Complaint: Alcohol intoxication Stated Complaint: INTOXICATION Time Seen by Provider: 03/23/17 15:30 Past History - Past Medical History Anemia: No Asthma: No Cancer: Yes (mesothelioma) Cardiac Disorders: No CVA: No COPD: No CHF: No Dementia: No Diabetes: No GI Disorders: No Disorders: No HTN: Yes (no med) Hypercholesterolemia: No Kidney Stones: No Liver Disease: No Psychiatric Problems: Yes (alcoholism) Seizures: No Thyroid Disease: No - Surgical History Abdominal Surgery: No Appendectomy: No Cardiac Surgery: No Cholecystectomy: No Lung Surgery: No Neurologic Surgery: No Orthopedic Surgery: No - Family Disease History Family Disease History: CA: Mother - Reproductive History Testicular Surgery: No - Immunization History TDAP Vaccination: Yes Immunization Up to Date: Yes - Suicide/Smoking/Psychosocial Hx Smoking Status: No Smoking History: Never smoked Have you smoked in the past 12 months: No Number of Cigarettes Smoked Daily: 0 Cigars Per Day: 0 'Breaking Loose' booklet given: 11/02/16 Hx Alcohol Use: Yes Drug/Substance Use Hx: No Substance Use Type: Alcohol Hx Substance Use Treatment: Yes ([facility] 11/02/16 to 11/05/16) <Jacob Bertrand - Last Filed: 03/23/17 15:30> <Ernestine Snyder - Last Filed: 03/23/17 16:35> - Past Medical History Allergies/Adverse Reactions: Allergies Allergy/AdvReac Type Severity Reaction Status Date / Time Fish Containing Products Allergy Mild Verified 03/23/17 15:59 No Known Drug Allergies Allergy Verified 03/23/17 15:59 Home Medications: Ambulatory Orders NK [No Known Home Medication] 01/15/17 Review of Systems - Review of Systems Able to Perform ROS?: Yes Comments:: 03/23/17 15:59 GENERAL/CONSTITUTIONAL: (+) intoxication. No fever or chills. No weakness. HEAD, EYES, EARS, NOSE AND THROAT: No change in vision. No ear pain or discharge. No sore throat. CARDIOVASCULAR: (+) chest pain. no increased shortness of breath. RESPIRATORY: No cough, wheezing, or hemoptysis. GASTROINTESTINAL: No nausea, vomiting, diarrhea or constipation. GENITOURINARY: No dysuria, frequency, or change in urination. MUSCULOSKELETAL: No joint or muscle swelling or pain. No neck or back pain. SKIN: No rash NEUROLOGIC: No headache, vertigo, loss of consciousness, or change in strength/ sensation. ENDOCRINE: No increased thirst. No abnormal weight change. HEMATOLOGIC/LYMPHATIC: No anemia, easy bleeding, or history of blood clots. ALLERGIC/IMMUNOLOGIC: No hives or skin allergy. <Ernestine Snyder - Last Filed: 03/23/17 16:35> *Physical Exam - Physical Exam Comments: 03/23/17 16:00 GENERAL: (+) alcohol on breath. Awake, alert, and fully oriented, in no acute distress HEAD: No signs of trauma EYES: PERRLA, EOMI, sclera anicteric, conjunctiva clear ENT: Auricles normal inspection, hearing grossly normal, nares patent, oropharynx clear without exudates. Moist mucosa NECK: Normal ROM, supple, no lymphadenopathy, JVD, or masses LUNGS: Breath sounds equal, clear to auscultation bilaterally. No wheezes, and no crackles HEART: Regular rate and rhythm, normal S1 and S2, no murmurs, rubs or gallops ABDOMEN: Soft, nontender, normoactive bowel sounds. No guarding, no rebound. No masses EXTREMITIES: Normal range of motion, no edema. No clubbing or cyanosis. No cords, erythema, or tenderness NEUROLOGICAL: Cranial nerves II through XII grossly intact. Normal speech, normal gait SKIN: Warm, Dry, normal turgor, no rashes or lesions noted. <Ernestine Snyder - Last Filed: 03/23/17 16:35> Medical Decision Making - Medical Decision Making 03/23/17 16:35 The patient left the ED at his own will. He is not present in the ED at this time. <Ernestine Snyder - Last Filed: 03/23/17 16:35> *DC/Admit/Observation/Transfer - Attestations Physician Attestion: 03/23/17 15:32 I, Dr. Jacob Bertrand, attest that this document has been prepared under my direction and personally reviewed by me in its entirety. I further attest, that it accurately reflects all work, treatment, procedures and medical decision -making performed by me. <Jacob Bertrand - Last Filed: 03/23/17 15:30> - Attestations Scribe Attestion: 03/23/17 16:01 Documentation prepared by Ernestine Snyder, acting as medical staff specialist for Jacob Bertrand DO <Ernestine Snyder - Last Filed: 03/23/17 16:35> Diagnosis at time of Disposition: Alcohol intoxication
[2017-03-23 15:59] VITALS: BP 104/54; PULSE 89; TEMP 96.8; BMI 28.7
--- NOTE | 2017-03-24 22:32 | EKG ---
Test Reason : Blood Pressure : / mmHG Vent. Rate : 090 BPM Atrial Rate : 090 BPM P-R Int : 188 ms QRS Dur : 102 ms QT Int : 412 ms P-R-T Axes : 084 -36 054 degrees QTc Int : 504 ms SUBOPTIMAL EKG NORMAL SINUS RHYTHM LEFT AXIS DEVIATION LEFT ANTERIOR FASCICULAR BLOCK V1 CANNOT BE EVALUATED ABNORMAL ECG WOULD RECOMMEND REPEAT TRACING Confirmed by GANESH FLORES MD ([id number]) on 03/24/2017 10:32:23 PM Referred By: Confirmed By:GANESH FLORES MD
== END 2017-03-23 16:35 | disposition home or self-care (01) ==
LOC: JER 14:53
DX: F10.920 Alcohol use, unspecified with intoxication, uncomplicated (principal); C45.9 Mesothelioma, unspecified
CPT/HCPCS: 93005; 93010; 99283-25

== ENCOUNTER 2017-03-26 00:04 | Emergency (ER) | payer OTHER ==
[2017-03-26 00:11] VITALS: TEMP 97.8; BMI 30.1
--- NOTE | 2017-03-26 01:23 | PDOC ---
History of Present Illness - General History Source: Patient Exam Limitations: Intoxication - History of Present Illness Initial Comments: 03/26/17 01:36 62 yr old male well known to the ED with significant past medical history of alcohol abuse, who presents to the emergency room BIBA for alcohol intoxication. The patient is not complaining of any pain at this time. Denies chest pain, SOB, cough. Denies fever, chills, nausea, vomiting. Denies recent falls/injuries. HPI is limited secondary to intoxication. <Regina Harrison - Last Filed: 03/26/17 01:36> - General History Source: EMS <Altaf Iniguez - Last Filed: 03/26/17 06:27> - General Chief Complaint: Alcohol intoxication Stated Complaint: INTOX Time Seen by Provider: 03/26/17 01:23 Past History <Regina Harrison - Last Filed: 03/26/17 01:36> - Past Medical History Anemia: No Asthma: No Cancer: Yes (mesothelioma) Cardiac Disorders: No CVA: No COPD: No CHF: No Dementia: No Diabetes: No GI Disorders: No Disorders: No HTN: Yes (no med) Hypercholesterolemia: No Kidney Stones: No Liver Disease: No Psychiatric Problems: Yes (alcoholism) Seizures: No Thyroid Disease: No - Surgical History Abdominal Surgery: No Appendectomy: No Cardiac Surgery: No Cholecystectomy: No Lung Surgery: No Neurologic Surgery: No Orthopedic Surgery: No - Family Disease History Family Disease History: CA: Mother - Reproductive History Testicular Surgery: No - Immunization History TDAP Vaccination: Yes Immunization Up to Date: Yes - Suicide/Smoking/Psychosocial Hx Smoking Status: No Smoking History: Never smoked Have you smoked in the past 12 months: No Number of Cigarettes Smoked Daily: 0 Cigars Per Day: 0 Information on smoking cessation initiated: No 'Breaking Loose' booklet given: 11/02/16 Hx Alcohol Use: Yes Drug/Substance Use Hx: No Substance Use Type: Alcohol Hx Substance Use Treatment: Yes ([facility] 11/02/16 to 11/05/16) <Altaf Iniguez - Last Filed: 03/26/17 06:27> - Past Medical History Allergies/Adverse Reactions: Allergies Allergy/AdvReac Type Severity Reaction Status Date / Time Fish Containing Products Allergy Mild Verified 03/26/17 00:10 No Known Drug Allergies Allergy Verified 03/26/17 00:10 Home Medications: Ambulatory Orders NK [No Known Home Medication] 01/15/17 Review of Systems - Review of Systems Able to Perform ROS?: No (intox) <HunterRegina - Last Filed: 03/26/17 01:36> *Physical Exam - Vital Signs Last Vital Signs Temp Pulse Resp BP Pulse Ox 97.8 F 62 18 130/80 95 03/26/17 00:08 03/26/17 00:08 03/26/17 00:08 03/26/17 00:08 03/26/17 00:08 - Physical Exam Comments: 03/26/17 01:31 GENERAL: Well developed, well nourished. Intoxicated. In no acute distress. HEENT: Normocephalic, atraumatic. No valdez or racoon signs. PERRLA, EOMI. No conjunctival pallor. Sclerae are non-icteric. Moist mucous membranes. Oropharynx is clear. NECK: Supple. Full ROM. No JVD. Carotid pulses 2+ and symmetric, without bruits. No thyromegaly. No lymphadenopathy. CARDIOVASCULAR: Regular rate and rhythm. No murmurs, rubs, or gallops. Distal pulses are 2+ and symmetric. PULMONARY: No evidence of respiratory distress. Lungs clear to auscultation bilaterally. No wheezing, rales or rhonchi. ABDOMINAL: Soft. Non-tender. Non-distended. No rebound or guarding. No organomegaly. Normoactive bowel sounds. MUSCULOSKELETAL Normal range of motion at all joints. No bony deformities or tenderness. No CVA tenderness. EXTREMITIES: No cyanosis. No clubbing. No edema. No calf tenderness. SKIN: Warm and dry. Normal capillary refill. No rashes. No jaundice. NEUROLOGICAL: Alert, awake, intoxicated. <Regina Harrison - Last Filed: 03/26/17 01:36> - Vital Signs Last Vital Signs Temp Pulse Resp BP Pulse Ox 97.8 F 62 18 130/80 95 03/26/17 00:08 03/26/17 00:08 03/26/17 00:08 03/26/17 00:08 03/26/17 00:08 <Altaf Iniguez - Last Filed: 03/26/17 06:27> Medical Decision Making - Medical Decision Making 03/26/17 06:27 <Altaf Iniguez - Last Filed: 03/26/17 06:27> *DC/Admit/Observation/Transfer - Attestations Scribe Attestion: 03/26/17 01:32 Documentation prepared by JOSE ANTONIO Guillaume, acting as medical aide for Altaf Iniguez MD/. <Regina Harrison - Last Filed: 03/26/17 01:36> - Discharge Dispostion Admit: No <Altaf Iniguez - Last Filed: 03/26/17 06:27> Diagnosis at time of Disposition: Alcohol abuse, Alcohol abuse with intoxication - Discharge Dispostion Disposition: HOME Condition at time of disposition: Improved - Patient Instructions Printed Discharge Instructions: DI for Alcohol Abuse
[2017-03-26 06:31] VITALS: BP 140/69; PULSE 81
== END 2017-03-26 06:36 | disposition home or self-care (01) ==
LOC: JER 00:04
DX: F10.920 Alcohol use, unspecified with intoxication, uncomplicated (principal); C45.9 Mesothelioma, unspecified
CPT/HCPCS: 99282-25

== ENCOUNTER 2017-03-27 09:15 | Inpatient (IN) | payer OTHER ==
[2017-03-27 13:41] VITALS: BMI 33.0
--- NOTE | 2017-03-27 14:38 | HP ---
CIWA Score - CIWA Score Nausea/Vomitin Muscle Tremors: 3 Anxiety: 3 Agitation: 3 Paroxysmal Sweats: 1-Minimal Palms Moist Orientation: 0-Oriented Tacttile Disturbances: 2-Mild Itch/Numbness/Burn Auditory Disturbances: 2-Mild Harshness/Frighten Visual Disturbances: 0-None Headache: 2-Mild CIWA-Ar Total Score: 19 Admission ROS BHS - HPI Chief Complaint: i need help to stop drinking alcohol,seen in [facility] er last night Allergies/Adverse Reactions: Allergies Allergy/AdvReac Type Severity Reaction Status Date / Time Fish Containing Products Allergy Mild Verified 03/27/17 14:15 No Known Drug Allergies Allergy Verified 03/27/17 14:15 History of Present Illness: this 62 years old male with alcohol dependence,seeking detox from alcohol,last detox 12/29 sj syncope multiple admissions in detox,keep relapsing longest period of sobriety 7 years Exam Limitations: No Limitations - Ebola screening Have you traveled outside of the country in the last 21 days: No Have you had contact with anyone from an Ebola affected area: No Have you been sick,other than usual withdrawal symptoms: No Do you have a fever: No - Review of Systems Constitutional: Loss of Appetite, Malaise, Night Sweats, Changes in sleep, Weakness EENT: reports: Nose Congestion Respiratory: reports: Other Cardiac: reports: No Symptoms Reported GI: reports: Diarrhea, Nausea, Vomiting, Abdominal cramping : reports: No Symptoms Reported Musculoskeletal: reports: Back Pain, Muscle Pain Integumentary: reports: Dryness Neuro: reports: Headache, Tremors Endocrine: reports: No Symptoms Reported Hematology: reports: No Symptoms Reported Psychiatric: reports: No Sypmtoms Reported Patient History - Patient Medical History Hx Anemia: No Hx Asthma: No Hx Chronic Obstructive Pulmonary Disease (COPD): No Hx Cancer: Yes (mesothelioma) Hx Cardiac Disorders: No Hx Congestive Heart Failure: No Hx Hypertension: Yes (no med) Hx Hypercholesterolemia: No Hx Pacemaker: No HX Cerebrovascular Accident: No Hx Seizures: No Hx Dementia: No Hx Diabetes: No Hx Gastrointestinal Disorders: No Hx Liver Disease: No Hx Genitourinary Disorders: No Hx Sexually Transmitted Disorders: No Hx Renal Disease (ESRD): No Hx Thyroid Disease: No Hx Human Immunodeficiency Virus (HIV): No (last 2011 negative) Hx Hepatitis C: No Hx Depression: No Hx Suicide Attempt: No Hx Bipolar Disorder: No Hx Schizophrenia: No Other Medical History: no suicidal,no homicidal - Patient Surgical History Past Surgical History: No Hx Neurologic Surgery: No Hx Cataract Extraction: No Hx Cardiac Surgery: No Hx Lung Surgery: No Hx Breast Surgery: No Hx Breast Biopsy: No Hx Abdominal Surgery: No Hx Appendectomy: No Hx Cholecystectomy: No Hx Genitourinary Surgery: No Hx Section: No Hx Orthopedic Surgery: No Hx Hysterectomy: No Anesthesia Reaction: No - PPD History Previous Implant?: Yes Documented Results: Negative w/proof Date: 11/04/16 Results: 0 mm PPD to be Administered?: No - Smoking Cessation Smoking history: Never smoked Have you smoked in the past 12 months: No Aproximately how many cigarettes per day: 0 Cigars Per Day: 0 Hx Chewing Tobacco Use: No - Substance & Tx. History Hx Alcohol Use: Yes Hx Substance Use: Yes Substance Use Type: Alcohol Hx Substance Use Treatment: Yes (last) - Substances Abused Alcohol Route: Oral Frequency: Daily Amount used: 2-3 pints vodka Age of first use: 16 Date of Last Use: 03/27/17 Family Disease History - Family Disease History Family Disease History: CA: Mother (), Brother (Colon CA), Other: Grandparent (ALCOHOLISM), Father (ALCOHOL,) Admission Physical Exam S - Vital Signs Vital Signs: Vital Signs - 24 hr 03/27/17 13:37 Temperature 96.4 F L Pulse Rate 88 Respiratory 20 Rate Blood Pressure 154/104 - Physical General Appearance: Yes: Moderate Distress, Tremorous, Irritable, Sweating, Anxious HEENTM: Yes: Normal ENT Inspection, DOUGLAS, Pharynx Normal Respiratory: Yes: Lungs Clear, Normal Breath Sounds, No Respiratory Distress, Other (mesolithioma) Neck: Yes: Within Normal Limits, Supple, Trachea in good position Breast: Yes: Within Normal Limits Cardiology: Yes: Within Normal Limits, Regular Rhythm, Regular Rate, S1, S2 Abdominal: Yes: Normal Bowel Sounds, Non Tender, Flat, Soft, Pulsatile Mass Genitourinary: Yes: Within Normal Limits Back: Yes: Muscle Spasm Extremities: Yes: Within Normal Limits, Normal Range of Motion, Tremors Neurological: Yes: forensic engineer II-XII NML intact, Alert, Motor Strength 5/5 Integumentary: Yes: Dry Lymphatic: Yes: Within Normal Limits - Diagnostic (1) Alcohol dependence with uncomplicated withdrawal Current Visit: No Status: Chronic (2) Syncope Current Visit: No Status: Acute Qualifiers: Syncope type: unspecified Qualified Code(s): R55 - Syncope and collapse ; R55 - Syncope and collapse (3) HTN (hypertension) Current Visit: No Status: Chronic Qualifiers: Hypertension type: essential hypertension Qualified Code(s): I10 - Essential (primary) hypertension; I10 - Essential (primary) hypertension; I10 - Essential (primary) hypertension (4) Mesothelioma (pleural) Current Visit: No Status: Chronic (5) Alcohol dependence with intoxication Current Visit: Yes Status: Acute Cleared for Admission BHS - Detox or Rehab S Level of Care: Medically Managed Detox Regimen/Protocol: Librium BHS Breath Alcohol Content Breath Alcohol Content: 0 Urine Drug Screen - Results Drug Screen Negative: No Urine Drug Screen Results: BZO-Benzodiazepines
[2017-03-27] MEDS ORDERED: guaiFENesin/D-METHORPHAN HB 10 ML UNIT-DOSE CUPS PO PRN (15:17)
[2017-03-27] MEDS ORDERED: P-EPHED 60MG/TRIPROLIDI 2.5MG TABLET PO PRN (15:17)
[2017-03-27] MEDS ORDERED: MENTHOL/PHENOL 1 EACH UD MM PRN (15:17)
[2017-03-27] MEDS ORDERED: chlordiazePOXIDE HCL 25 MG CAPSULE PO PRN (15:17)
[2017-03-27] MEDS ORDERED: MAGNESIUM HYDROX 2400MG/30ML ORAL SUSPENSION 30 ML CUP PO PRN (15:17)
[2017-03-27] MEDS ORDERED: MAGNESIUM CITRATE 300 ML BOTTLE PO PRN (15:17)
[2017-03-27] MEDS ORDERED: MAG HYDROX/AL HYDROX/SIMETH 30 ML UNIT-DOSE CUP PO PRN (15:17)
[2017-03-27] MEDS ORDERED: chlordiazePOXIDE HCL 25 MG CAPSULE PO ONE (16:00)
[2017-03-27] MEDS: chlordiazePOXIDE HCL 25 MG CAPSULE PO SCH ×2 (17:28→23:58)
[2017-03-27 20:25] LABS: URINE APPEARANCE CLEAR; URINE BILIRUBIN NEGATIVE (NEGATIVE); URINE BLOOD NEGATIVE (NEGATIVE); URINE COLOR YELLOW; URINE GLUCOSE (UA) NEGATIVE (NEGATIVE); URINE KETONE NEGATIVE (NEGATIVE); URINE NITRITE NEGATIVE (NEGATIVE); URINE PROTEIN NEGATIVE (NEGATIVE); URINE UROBILINOGEN NEGATIVE mg/dL (0.2-1.0)
[2017-03-27] MEDS ORDERED: ALBUTEROL SO4 2.5/IPRATROPIUM 0.5 INH SOL 3 ML VIAL.NEB. NEB PRN (20:30)
[2017-03-27 21:51] LABS: URINE LEUK ESTERASE Negative (NEGATIVE)
[2017-03-27] MEDS: THIAMINE HCL 100 MG TABLET (FP) PO SCH (23:59)
[2017-03-28] MEDS: chlordiazePOXIDE HCL 25 MG CAPSULE PO SCH ×4 (06:07→22:43)
[2017-03-28 10:54] LABS: MCH 30.4 pg (25.7-33.7); MCHC 31.9 g/dl (32.0-35.9); MEAN CELL VOLUME 95.1 fl (80-96); MEAN PLT VOLUME 8.2 fl (7.5-11.1); PLATELET COUNT 231 K/MM3 (134-434); RDW 15.7 % (11.9-15.9); WHITE BLOOD COUNT 5.2 K/mm3 (4.0-10.0)
[2017-03-28 11:09] LABS: ALBUMIN 3.4 g/dl (3.4-5.0)
[2017-03-28] MEDS: PRENATAL VITAMINS W/ FOLIC ACID TABLET (FP) PO SCH ×2 (11:18→11:29)
--- NOTE | 2017-03-28 12:54 | EKG ---
Test Reason : Blood Pressure : / mmHG Vent. Rate : 086 BPM Atrial Rate : 086 BPM P-R Int : 148 ms QRS Dur : 090 ms QT Int : 406 ms P-R-T Axes : 047 -31 025 degrees QTc Int : 485 ms NORMAL SINUS RHYTHM LEFT AXIS DEVIATION PROLONGED QT NON-SPECIFIC INTRA-VENTRICULAR CONDUCTION DELAY ABNORMAL ECG WHEN COMPARED WITH ECG OF 23-MAR-2017 16:11, NO SIGNIFICANT CHANGE WAS FOUND Confirmed by RAY VENEGAS MD ([id number]) on 03/28/2017 12:53:40 PM Referred By: Confirmed By:RAY VENEGAS MD
[2017-03-28 12:57] LABS: ALK PHOS 156 U/L (45-117); ANION GAP 8 (8-16); BILIRUBIN,TOTAL 0.7 mg/dL (0.2-1.0); CO2 34 mmol/L (21-32); CREATININE 0.5 mg/dL (0.7-1.3); GLUCOSE,RANDOM 105 mg/dL (74-106); SGOT/AST 62 U/L (15-37); SGPT/ALT 30 U/L (12-78); TOT PROT 7.1 g/dl (6.4-8.2)
--- NOTE | 2017-03-28 13:02 | PN ---
[facility] CIWA - CIWA Score Nausea/Vomitin Muscle Tremors: 3 Anxiety: 3 Agitation: 3 Paroxysmal Sweats: 1-Minimal Palms Moist Orientation: 0-Oriented Tacttile Disturbances: 1-Very Mild Itch/Numbness Auditory Disturbances: 1-Very Mild Visual Disturbances: 0-None Headache: 2-Mild CIWA-Ar Total Score: 17 BHS Progress Note (SOAP) Subjective: alert,irritable,anxious,interrupted sleep,tremor Objective: 03/28/17 13:00 Vital Signs Temperature 99 F 03/28/17 10:29 Pulse Rate 82 03/28/17 10:29 Respiratory Rate 18 03/28/17 10:29 Blood Pressure 127/75 03/28/17 10:29 O2 Sat by Pulse Oximetry (%) ekg nsr,prolong qt no chest pain,no sob,no dizziness Laboratory Last Values WBC 5.2 K/mm3 (4.0-10.0) 03/28/17 06:00 RBC 3.93 M/mm3 (4.00-5.60) L 03/28/17 06:00 Hgb 11.9 GM/dL (11.7-16.9) 03/28/17 06:00 Hct 37.4 % (35.4-49) 03/28/17 06:00 MCV 95.1 fl (80-96) 03/28/17 06:00 MCH 30.4 pg (25.7-33.7) 03/28/17 06:00 MCHC 31.9 g/dl (32.0-35.9) L 03/28/17 06:00 RDW 15.7 % (11.9-15.9) 03/28/17 06:00 Plt Count 231 K/MM3 (134-434) D 03/28/17 06:00 MPV 8.2 fl (7.5-11.1) D 03/28/17 06:00 Sodium 142 mmol/L (136-145) 03/28/17 06:00 Potassium 3.4 mmol/L (3.5-5.1) L 03/28/17 06:00 Chloride 100 mmol/L (98-107) 03/28/17 06:00 Albumin 3.4 g/dl (3.4-5.0) 03/28/17 06:00 Urine Color Yellow 03/27/17 19:00 Urine Appearance Clear 03/27/17 19:00 Urine pH 6.0 (5.0-8.0) 03/27/17 19:00 Ur Specific [place] 1.015 (1.005-1.025) 03/27/17 19:00 Urine Protein Negative (NEGATIVE) 03/27/17 19:00 Urine Glucose (UA) Negative (NEGATIVE) 03/27/17 19:00 Urine Ketones Negative (NEGATIVE) 03/27/17 19:00 Urine Blood Negative (NEGATIVE) 03/27/17 19:00 Urine Nitrite Negative (NEGATIVE) 03/27/17 19:00 Urine Bilirubin Negative (NEGATIVE) 03/27/17 19:00 Urine Urobilinogen Negative mg/dL (0.2-1.0) 03/27/17 19:00 Ur Leukocyte Esterase Negative (NEGATIVE) 03/27/17 19:00 Assessment: 03/28/17 13:01 withdrawal symptom Plan: continue detox
--- NOTE | 2017-03-28 13:05 | PN ---
BHS Progress Note Note: k is 3.4 ,kdur 20 meq po daily
[2017-03-28 13:16] LABS: CALCIUM 8.2 mg/dL (8.5-10.1)
[2017-03-28] MEDS: POTASSIUM CHLORIDE TABS 20 MEQ TABLET.ER (FP) PO SCH ×2 (13:33→16:07)
[2017-03-28] MEDS: ACETAMINOPHEN 325 MG TABLET (FP) PO PRN (17:46)
[2017-03-28] MEDS: diphenhydrAMINE HCL 50 MG CAPSULE PO PRN (22:43)
[2017-03-28] MEDS: THIAMINE HCL 100 MG TABLET (FP) PO SCH (22:43)
[2017-03-28] MEDS: IBUPROFEN 400 MG TABLET (FP) PO PRN (22:45)
[2017-03-29] MEDS: chlordiazePOXIDE HCL 25 MG CAPSULE PO SCH ×2 (05:56→10:50)
[2017-03-29] MEDS: POTASSIUM CHLORIDE TABS 20 MEQ TABLET.ER (FP) PO SCH (10:51)
[2017-03-29] MEDS: PRENATAL VITAMINS W/ FOLIC ACID TABLET (FP) PO SCH (10:52)
--- NOTE | 2017-03-29 13:19 | PN ---
S CIWA - CIWA Score Nausea/Vomitin Muscle Tremors: 3 Anxiety: 3 Agitation: 3 Paroxysmal Sweats: 1-Minimal Palms Moist Orientation: 0-Oriented Tacttile Disturbances: 1-Very Mild Itch/Numbness Auditory Disturbances: 1-Very Mild Visual Disturbances: 0-None Headache: 2-Mild CIWA-Ar Total Score: 17 BHS Progress Note (SOAP) Subjective: ALERT,IRRIABLE,ANXIOUS,TREMOR,INTERRUPTED SLEEP Objective: 03/29/17 13:24 Vital Signs Temperature 97.7 F 03/29/17 11:01 Pulse Rate 111 H 03/29/17 11:01 Respiratory Rate 18 03/29/17 11:01 Blood Pressure 125/90 03/29/17 11:01 O2 Sat by Pulse Oximetry (%) Assessment: 03/29/17 13:24 WITHDRAWAL SYMPTOM Plan: CONTINUE DETOX
[2017-03-29] MEDS: chlordiazePOXIDE 5 MG CAPSULE PO SCH ×2 (17:46→22:47)
[2017-03-29] MEDS: ACETAMINOPHEN 325 MG TABLET (FP) PO PRN (22:47)
[2017-03-29] MEDS: THIAMINE HCL 100 MG TABLET (FP) PO SCH (22:47)
[2017-03-29] MEDS: diphenhydrAMINE HCL 50 MG CAPSULE PO PRN (22:50)
[2017-03-30] MEDS: chlordiazePOXIDE 5 MG CAPSULE PO SCH ×2 (05:37→10:40)
[2017-03-30] MEDS: ACETAMINOPHEN 325 MG TABLET (FP) PO PRN (05:37)
[2017-03-30] MEDS: PRENATAL VITAMINS W/ FOLIC ACID TABLET (FP) PO SCH (10:40)
[2017-03-30] MEDS: POTASSIUM CHLORIDE TABS 20 MEQ TABLET.ER (FP) PO SCH (10:40)
--- NOTE | 2017-03-30 12:19 | PN ---
S Progress Note (SOAP) Subjective: alert,irritable,anxious,interrupted sleep Objective: 03/30/17 12:18 Vital Signs Temperature 97.7 F 03/30/17 11:08 Pulse Rate 109 H 03/30/17 11:08 Respiratory Rate 18 03/30/17 11:08 Blood Pressure 117/88 03/30/17 11:08 O2 Sat by Pulse Oximetry (%) Assessment: 03/30/17 12:18 withdrawal symptom Plan: continue detox,refused k dur,encourage to take orange juice and banana
[2017-03-30] MEDS: chlordiazePOXIDE HCL 10 MG CAPSULE PO SCH ×2 (17:12→22:04)
[2017-03-30] MEDS: LOPERAMIDE HCL 2 MG CAPSULE PO PRN (17:14)
[2017-03-30] MEDS: diphenhydrAMINE HCL 50 MG CAPSULE PO PRN (22:04)
[2017-03-30] MEDS: THIAMINE HCL 100 MG TABLET (FP) PO SCH (22:04)
[2017-03-31] MEDS: chlordiazePOXIDE HCL 10 MG CAPSULE PO SCH ×2 (06:04→10:46)
--- NOTE | 2017-03-31 09:48 | PN ---
S Progress Note (SOAP) Subjective: pain in the lower abdomen with diarrhea vomiting Vital Signs Temperature 98.8 F 03/31/17 06:44 Pulse Rate 97 H 03/31/17 06:44 Respiratory Rate 18 03/31/17 06:44 Blood Pressure 126/86 03/31/17 06:44 O2 Sat by Pulse Oximetry (%) Objective: 03/31/17 09:44 Vital Signs Temperature 98.8 F 03/31/17 06:44 Pulse Rate 97 H 03/31/17 06:44 Respiratory Rate 18 03/31/17 06:44 Blood Pressure 126/86 03/31/17 06:44 O2 Sat by Pulse Oximetry (%) Assessment: 03/31/17 09:44 abdomen soft,pain on palpation lower abdomen no guarding,no regidity bowel sound active Plan: cbc,cmp,amylase,lipase,fua,stool for c difficille observation
[2017-03-31] MEDS ORDERED: TRIMETHOBENZAMIDE HCL 200MG/2ML INJ IM PRN (09:56)
[2017-03-31] MEDS: POTASSIUM CHLORIDE TABS 20 MEQ TABLET.ER (FP) PO SCH (10:45)
[2017-03-31] MEDS: PRENATAL VITAMINS W/ FOLIC ACID TABLET (FP) PO SCH (10:45)
[2017-03-31] MEDS: IBUPROFEN 400 MG TABLET (FP) PO PRN (12:31)
[2017-03-31] MEDS: LOPERAMIDE HCL 2 MG CAPSULE PO PRN ×2 (12:31→22:48)
[2017-03-31 12:42] LABS: MCH 30.2 pg (25.7-33.7); MCHC 32.2 g/dl (32.0-35.9); MEAN CELL VOLUME 93.8 fl (80-96); PLATELET COUNT 189 K/MM3 (134-434); WHITE BLOOD COUNT 8.6 K/mm3 (4.0-10.0)
[2017-03-31 13:15] LABS: ALBUMIN 3.2 g/dl (3.4-5.0); AMYLASE 32 U/L (25-115); ANION GAP 12 (8-16); BILIRUBIN,TOTAL 1.1 mg/dL (0.2-1.0); CALCIUM 8.2 mg/dL (8.5-10.1); CO2 28 mmol/L (21-32); CREATININE 0.7 mg/dL (0.7-1.3); GLUCOSE,RANDOM 90 mg/dL (74-106); SGOT/AST 33 U/L (15-37); SGPT/ALT 22 U/L (12-78); TOT PROT 6.7 g/dl (6.4-8.2)
[2017-03-31 13:16] LABS: ALK PHOS 114 U/L (45-117)
[2017-03-31] MEDS ORDERED: POTASSIUM CHLORIDE TABS 20 MEQ TABLET.ER (FP) PO ONE (15:03)
--- NOTE | 2017-03-31 15:13 | PN ---
[facility] Progress Note Note: Laboratory Last Values WBC 8.6 K/mm3 (4.0-10.0) D 03/31/17 10:00 RBC 3.90 M/mm3 (4.00-5.60) L 03/31/17 10:00 Hgb 11.8 GM/dL (11.7-16.9) 03/31/17 10:00 Hct 36.6 % (35.4-49) 03/31/17 10:00 MCV 93.8 fl (80-96) 03/31/17 10:00 MCH 30.2 pg (25.7-33.7) 03/31/17 10:00 MCHC 32.2 g/dl (32.0-35.9) 03/31/17 10:00 RDW 16.0 % (11.9-15.9) H 03/31/17 10:00 Plt Count 189 K/MM3 (134-434) 03/31/17 10:00 MPV 8.0 fl (7.5-11.1) 03/31/17 10:00 Sodium 140 mmol/L (136-145) 03/31/17 10:00 Potassium 2.8 mmol/L (3.5-5.1) L* 03/31/17 10:00 Chloride 100 mmol/L (98-107) 03/31/17 10:00 Carbon Dioxide 28 mmol/L (21-32) 03/31/17 10:00 Anion Gap 12 (8-16) 03/31/17 10:00 BUN 9 mg/dL (7-18) D 03/31/17 10:00 Creatinine 0.7 mg/dL (0.7-1.3) D 03/31/17 10:00 Creat Clearance w eGFR > 60 (>60) 03/31/17 10:00 Random Glucose 90 mg/dL (74-106) 03/31/17 10:00 Calcium 8.2 mg/dL (8.5-10.1) L 03/31/17 10:00 Total Bilirubin 1.1 mg/dL (0.2-1.0) H D 03/31/17 10:00 AST 33 U/L (15-37) D 03/31/17 10:00 ALT 22 U/L (12-78) D 03/31/17 10:00 Alkaline Phosphatase 114 U/L (45-117) D 03/31/17 10:00 Total Protein 6.7 g/dl (6.4-8.2) 03/31/17 10:00 Albumin 3.2 g/dl (3.4-5.0) L 03/31/17 10:00 Total Amylase 32 U/L (25-115) 03/31/17 10:00 Lipase 76 U/L (73-393) 03/31/17 10:00 Urine Color Yellow 03/27/17 19:00 Urine Appearance Clear 03/27/17 19:00 Urine pH 6.0 (5.0-8.0) 03/27/17 19:00 Ur Specific [place] 1.015 (1.005-1.025) 03/27/17 19:00 Urine Protein Negative (NEGATIVE) 03/27/17 19:00 Urine Glucose (UA) Negative (NEGATIVE) 03/27/17 19:00 Urine Ketones Negative (NEGATIVE) 03/27/17 19:00 Urine Blood Negative (NEGATIVE) 03/27/17 19:00 Urine Nitrite Negative (NEGATIVE) 03/27/17 19:00 Urine Bilirubin Negative (NEGATIVE) 03/27/17 19:00 Urine Urobilinogen Negative mg/dL (0.2-1.0) 03/27/17 19:00 Ur Leukocyte Esterase Negative (NEGATIVE) 03/27/17 19:00 RPR Titer Nonreactive (NONREACTIVE) 03/28/17 06:00 to give liquid potassium 40 meq po bid with apple sauce close monitoring with potassium replacement
[2017-03-31] MEDS ORDERED: POTASSIUM CHLORIDE ORAL LIQUID 20 MEQ/15 ML PO SCH (22:00)
[2017-03-31] MEDS: diphenhydrAMINE HCL 50 MG CAPSULE PO PRN (22:19)
[2017-03-31] MEDS: THIAMINE HCL 100 MG TABLET (FP) PO SCH (23:51)
[2017-04-01 06:41] VITALS: BP 116/68; PULSE 84; TEMP 99.7
--- NOTE | 2017-04-01 09:27 | PN ---
S Progress Note (SOAP) Subjective: alert,no complaint Objective: 04/01/17 09:23 Vital Signs Temperature 99.7 F H 04/01/17 06:40 Pulse Rate 84 04/01/17 06:40 Respiratory Rate 18 04/01/17 06:40 Blood Pressure 116/68 04/01/17 06:40 O2 Sat by Pulse Oximetry (%) Assessment: 04/01/17 09:23 no withdrawal symptom Plan: patient is hypokalemia ,k is 2.8 on 03/31/17 on potassium iiquid 40 meq po bid patient refused blood for bmp wanted to go home today to to to [facility]
--- NOTE | 2017-04-01 09:32 | DS ---
[facility] Detox Discharge Summary Admission Date: 03/27/17 Discharge Date: 04/01/17 - History Present History: Alcohol Dependence Pertinent Past History: syncope hypertension mesolithioma hypokalemia - Physical Exam Results Vital Signs: Vital Signs Temperature 99.7 F H 04/01/17 06:40 Pulse Rate 84 04/01/17 06:40 Respiratory Rate 18 04/01/17 06:40 Blood Pressure 116/68 04/01/17 06:40 O2 Sat by Pulse Oximetry (%) Pertinent Admission Physical Exam Findings: withdrawal symptom - Treatment Hospital Course: Detox Protocol Followed, Detoxed Safely, Responded well, Discharged Condition Good, Rehab Referral Accepted Patient has Accepted a Rehab Referral to: [facility] - Medication Discharge Medications: Ambulatory Orders NK [No Known Home Medication] 01/15/17 - Diagnosis (1) Alcohol dependence with uncomplicated withdrawal Current Visit: No Status: Chronic (2) Syncope Current Visit: No Status: Acute Qualifiers: Syncope type: unspecified Qualified Code(s): R55 - Syncope and collapse ; R55 - Syncope and collapse (3) HTN (hypertension) Current Visit: No Status: Chronic Qualifiers: Hypertension type: essential hypertension Qualified Code(s): I10 - Essential (primary) hypertension; I10 - Essential (primary) hypertension; I10 - Essential (primary) hypertension (4) Mesothelioma (pleural) Current Visit: No Status: Chronic (5) Alcohol dependence with intoxication Current Visit: Yes Status: Acute (6) Hypomagnesemia Current Visit: No Status: Acute - AMA Did Patient Leave Against Medical Advice: No
--- NOTE | 2017-04-01 10:06 | PN ---
[facility] Progress Note Note: patient insist on leaving stated his is doing well,refused repeat blood test today, kcl oral suspension 20 meq 15 ml po bid for 4 days,advise banana,citrus juice follow up with clinic or to er if any problem
== END 2017-04-01 09:35 | disposition home or self-care (01) | DRG 773 ==
LOC: YASAS 09:15 → Y6N 14:36
PROVIDERS: ADMIT Internal Medicine; ATTEND Internal Medicine
PROC: HZ2ZZZZ Detoxification Services for Substance Abuse Treatment (ICD-10-PCS; principal; 2017-03-27)
DX: F11.23 Opioid dependence with withdrawal (principal); I10 Essential (primary) hypertension; R55 Syncope and collapse; C45.9 Mesothelioma, unspecified; E83.42 Hypomagnesemia
CPT/HCPCS: 36415; 71020-TC; 74020-TC; 80053; 81003; 82150; 83690; 85027; 86593; 87324; 87449; 93005; 93010

== ENCOUNTER → 2017-04-03 | Emergency (ER) | payer OTHER ==
[2017-04-03 12:42] VITALS: BP 94/60; PULSE 90; TEMP 98; BMI 34.4
--- NOTE | 2017-04-03 14:06 | PDOC ---
History of Present Illness - General Chief Complaint: Alcohol intoxication Stated Complaint: ALCOHOL INTOX Time Seen by Provider: 04/03/17 12:35 History Source: Patient, EMS Exam Limitations: Intoxication - History of Present Illness Initial Comments: 62 yo M well known to this ED brought in by EMS for intoxication. Patient awake , oriented, ambulatory on ED arrival. Past History - Past Medical History Allergies/Adverse Reactions: Allergies Allergy/AdvReac Type Severity Reaction Status Date / Time Fish Containing Products Allergy Mild Verified 04/03/17 12:41 No Known Drug Allergies Allergy Verified 04/03/17 12:41 Home Medications: Ambulatory Orders NK [No Known Home Medication] 04/03/17 Anemia: No Asthma: No Cancer: Yes (mesothelioma) Cardiac Disorders: No CVA: No COPD: No CHF: No Dementia: No Diabetes: No GI Disorders: No Disorders: No HTN: Yes (no med) Hypercholesterolemia: No Kidney Stones: No Liver Disease: No Psychiatric Problems: Yes (alcoholism) Seizures: No Thyroid Disease: No - Surgical History Abdominal Surgery: No Appendectomy: No Cardiac Surgery: No Cholecystectomy: No Lung Surgery: No Neurologic Surgery: No Orthopedic Surgery: No - Family Disease History Family Disease History: CA: Mother - Reproductive History Testicular Surgery: No - Immunization History TDAP Vaccination: Yes Immunization Up to Date: Yes - Suicide/Smoking/Psychosocial Hx Smoking Status: No Smoking History: Never smoked Have you smoked in the past 12 months: No Number of Cigarettes Smoked Daily: 0 Cigars Per Day: 0 'Breaking Loose' booklet given: 11/02/16 Hx Alcohol Use: Yes Drug/Substance Use Hx: Yes Substance Use Type: Alcohol Hx Substance Use Treatment: Yes (last) *Physical Exam - Vital Signs Last Vital Signs Temp Pulse Resp BP Pulse Ox 98 F 90 18 94/60 97 04/03/17 12:38 04/03/17 12:38 04/03/17 12:38 04/03/17 12:38 04/03/17 12:38 Medical Decision Making - Medical Decision Making 04/03/17 14:30 Pt eloped prior to full exam and evaluation. *DC/Admit/Observation/Transfer Diagnosis at time of Disposition: Alcohol abuse - Discharge Dispostion Disposition: ELOPED Condition at time of disposition: Stable Admit: No - Patient Instructions Printed Discharge Instructions: DI for Alcohol Abuse
== END | disposition left against medical advice (07) ==
LOC: JER 12:29
DX: F10.220 Alcohol dependence with intoxication, uncomplicated (principal); Y90.9 Presence of alcohol in blood, level not specified; I10 Essential (primary) hypertension; C45.9 Mesothelioma, unspecified
CPT/HCPCS: 99282-25

== ENCOUNTER 2017-04-06 15:23 | Emergency (ER) | payer OTHER ==
--- NOTE | 2017-04-06 16:00 | PDOC ---
History of Present Illness - General Chief Complaint: Alcohol intoxication Stated Complaint: Alcohol intoxication Time Seen by Provider: 04/06/17 15:44 - History of Present Illness Initial Comments: 04/06/17 15:54 62 M brought in by EMS for ETOH intoxication, with no acute complaints. Pt is awake and alert in ER, eating food tray. He denies pain. Denies SI/HI/AVH. Denies any ingestion other than ETOH. Past History - Past Medical History Allergies/Adverse Reactions: Allergies Allergy/AdvReac Type Severity Reaction Status Date / Time Fish Containing Products Allergy Mild Verified 04/03/17 12:41 No Known Drug Allergies Allergy Verified 04/03/17 12:41 Home Medications: Ambulatory Orders NK [No Known Home Medication] 04/03/17 Anemia: No Asthma: No Cancer: Yes (mesothelioma) Cardiac Disorders: No CVA: No COPD: No CHF: No Dementia: No Diabetes: No GI Disorders: No Disorders: No HTN: Yes (no med) Hypercholesterolemia: No Kidney Stones: No Liver Disease: No Psychiatric Problems: Yes (alcoholism) Seizures: No Thyroid Disease: No - Surgical History Abdominal Surgery: No Appendectomy: No Cardiac Surgery: No Cholecystectomy: No Lung Surgery: No Neurologic Surgery: No Orthopedic Surgery: No - Family Disease History Family Disease History: CA: Mother - Reproductive History Testicular Surgery: No - Immunization History TDAP Vaccination: Yes Immunization Up to Date: Yes - Suicide/Smoking/Psychosocial Hx Smoking Status: No Smoking History: Never smoked Have you smoked in the past 12 months: No Number of Cigarettes Smoked Daily: 0 Cigars Per Day: 0 'Breaking Loose' booklet given: 11/02/16 Hx Alcohol Use: Yes Drug/Substance Use Hx: Yes Substance Use Type: Alcohol Hx Substance Use Treatment: Yes (last) Review of Systems - Review of Systems Comments:: 04/06/17 15:58 "GENERAL/CONSTITUTIONAL: No fever or chills. No weakness. HEAD, EYES, EARS, NOSE AND THROAT: No change in vision. No ear pain or discharge. No sore throat. CARDIOVASCULAR: No chest pain or shortness of breath. RESPIRATORY: No cough, wheezing, or hemoptysis. GASTROINTESTINAL: No nausea, vomiting, diarrhea or constipation. GENITOURINARY: No dysuria, frequency, or change in urination. MUSCULOSKELETAL: No joint or muscle swelling or pain. No neck or back pain. SKIN: No rash NEUROLOGIC: No headache, vertigo, loss of consciousness, or change in strength/ sensation. ENDOCRINE: No increased thirst. No abnormal weight change. HEMATOLOGIC/LYMPHATIC: No anemia, easy bleeding, or history of blood clots. ALLERGIC/IMMUNOLOGIC: No hives or skin allergy. " *Physical Exam - Physical Exam Comments: 04/06/17 15:58 "GENERAL: Awake, alert, and fully oriented, in no acute distress HEAD: No signs of trauma EYES: PERRLA, EOMI, sclera anicteric, conjunctiva clear ENT: Auricles normal inspection, hearing grossly normal, nares patent, oropharynx clear without exudates. Moist mucosa NECK: Nontender, no stepoffs, Normal ROM, supple, no lymphadenopathy, JVD, or masses LUNGS: Breath sounds equal, clear to auscultation bilaterally. No wheezes, and no crackles HEART: Regular rate and rhythm, normal S1 and S2, no murmurs, rubs or gallops ABDOMEN: Soft, nontender, normoactive bowel sounds. No guarding, no rebound. No masses EXTREMITIES: Normal range of motion, no edema. No clubbing or cyanosis. No cords, erythema, or tenderness NEUROLOGICAL: Cranial nerves II through XII intact. 5/5 strength and sensation in all extremities, Normal speech, normal gait SKIN: Warm, Dry, normal turgor, no rashes or lesions noted. " Medical Decision Making - Medical Decision Making 04/06/17 15:59 62 M brought in for ETOH intoxication. Now awake, alert, ambulatory with stable gait. - DC *DC/Admit/Observation/Transfer Diagnosis at time of Disposition: Alcohol intoxication - Discharge Dispostion Disposition: HOME - Patient Instructions Printed Discharge Instructions: DI for Alcohol Abuse - Attestations Physician Attestion: 04/06/17 16:01 I, Dr. Jamal Rodriges MD, attest that this document has been prepared under my direction and personally reviewed by me in its entirety. I further attest, that it accurately reflects all work, treatment, procedures and medical decision -making performed by me.
[2017-04-06 16:37] VITALS: BP 117/64; PULSE 96; TEMP 97.6; BMI 40.3
== END 2017-04-06 18:45 | disposition home or self-care (01) ==
LOC: JER 15:23
DX: F10.220 Alcohol dependence with intoxication, uncomplicated (principal); I10 Essential (primary) hypertension; Z59.0 Homelessness
CPT/HCPCS: 99282-25

== ENCOUNTER 2017-04-06 22:54 | Emergency (ER) | payer OTHER ==
[2017-04-06 23:13] VITALS: BP 100/60; PULSE 94; TEMP 97; BMI 37.1
--- NOTE | 2017-04-06 23:44 | PDOC ---
History of Present Illness - General Chief Complaint: Alcohol intoxication Stated Complaint: ALCOHOL INTOXICATION Time Seen by Provider: 04/06/17 23:44 - History of Present Illness Initial Comments: 04/07/17 01:12 62 M brought in by EMS for ETOH intoxication, with no acute complaints. Pt is sleepy in ED but arousable. He denies pain. Denies SI/HI/AVH. Denies any ingestion other than ETOH. Past History - Past Medical History Allergies/Adverse Reactions: Allergies Allergy/AdvReac Type Severity Reaction Status Date / Time Fish Containing Products Allergy Mild Verified 04/06/17 23:13 No Known Drug Allergies Allergy Verified 04/06/17 23:13 Home Medications: Ambulatory Orders NK [No Known Home Medication] 04/03/17 Anemia: No Asthma: No Cancer: Yes (mesothelioma) Cardiac Disorders: No CVA: No COPD: No CHF: No Dementia: No Diabetes: No GI Disorders: No Disorders: No HTN: Yes (no med) Hypercholesterolemia: No Kidney Stones: No Liver Disease: No Psychiatric Problems: Yes (alcoholism) Seizures: No Thyroid Disease: No - Surgical History Abdominal Surgery: No Appendectomy: No Cardiac Surgery: No Cholecystectomy: No Lung Surgery: No Neurologic Surgery: No Orthopedic Surgery: No - Family Disease History Family Disease History: CA: Mother - Reproductive History Testicular Surgery: No - Immunization History TDAP Vaccination: Yes Immunization Up to Date: Yes - Suicide/Smoking/Psychosocial Hx Smoking Status: No Smoking History: Never smoked Have you smoked in the past 12 months: No Number of Cigarettes Smoked Daily: 0 Cigars Per Day: 0 'Breaking Loose' booklet given: 11/02/16 Hx Alcohol Use: Yes Drug/Substance Use Hx: Yes Substance Use Type: Alcohol Hx Substance Use Treatment: Yes (last) Review of Systems - Review of Systems Comments:: 04/07/17 01:13 GENERAL/CONSTITUTIONAL: No fever or chills. No weakness. HEAD, EYES, EARS, NOSE AND THROAT: No change in vision. No ear pain or discharge. No sore throat. GASTROINTESTINAL: No nausea, vomiting, diarrhea or constipation. GENITOURINARY: No dysuria, frequency, or change in urination. CARDIOVASCULAR: No chest pain or shortness of breath. RESPIRATORY: No cough, wheezing, or hemoptysis. MUSCULOSKELETAL: No joint or muscle swelling or pain. No neck or back pain. SKIN: No rash NEUROLOGIC: No headache, vertigo, loss of consciousness, or change in strength/ sensation. ENDOCRINE: No increased thirst. No abnormal weight change. HEMATOLOGIC/LYMPHATIC: No anemia, easy bleeding, or history of blood clots. ALLERGIC/IMMUNOLOGIC: No hives or skin allergy. *Physical Exam - Vital Signs Last Vital Signs Temp Pulse Resp BP Pulse Ox 97 F L 94 H 18 100/60 99 04/06/17 23:11 04/06/17 23:11 04/06/17 23:11 04/06/17 23:11 04/06/17 23:11 - Physical Exam Comments: 04/07/17 01:13 GENERAL: sleepy but arousable, in no acute distress. +AOB HEAD: No signs of trauma EYES: PERRLA, EOMI, sclera anicteric, conjunctiva clear ENT: Auricles normal inspection, hearing grossly normal, nares patent, oropharynx clear without exudates. Moist mucosa NECK: Normal ROM, supple, no lymphadenopathy, JVD, or masses LUNGS: Breath sounds equal, clear to auscultation bilaterally. No wheezes, and no crackles HEART: Regular rate and rhythm, normal S1 and S2, no murmurs, rubs or gallops ABDOMEN: Soft, nontender, normoactive bowel sounds. No guarding, no rebound. No masses EXTREMITIES: Normal range of motion, no edema. No clubbing or cyanosis. No cords, erythema, or tenderness NEUROLOGICAL: cranial nerves grossly intact, moves all extremities, normal tone , gait deferred SKIN: Warm, Dry, normal turgor, no rashes or lesions noted. Medical Decision Making - Medical Decision Making 04/07/17 01:16 62-year-old male well-known to this emergency department presents with alcohol intoxication. Has no complaints. No signs of trauma on exam. We will reassess when clinically sober. 04/07/17 07:01 PT ambulating in the ED with a steady gait, no evidence of trauma. Ate crackers. Requests discharge I discussed the physical exam findings, ancillary test results and final diagnoses with the patient. I answered all of the patient's questions. The patient was satisfied with the care received and felt comfortable with the discharge plan and treatment plan. The patient will call their primary care physician within 24 hours to arrange follow-up and will return to the Emergency Department with any new, persistent or worsening symptoms. *DC/Admit/Observation/Transfer Diagnosis at time of Disposition: Alcohol intoxication - Discharge Dispostion Disposition: HOME Condition at time of disposition: Stable Admit: No - Patient Instructions Additional Instructions: Please see your primary care doctor within 1 week. Return to the emergency department immediately for any new or concerning symptoms or if your symptoms get worse. Thank you for coming to the Emergency Department today for your care. It was a pleasure to see you today. Please note that your evaluation is INCOMPLETE until you follow-up with your doctor. - Attestations Physician Attestion: 04/07/17 07:02 I, Dr. Fernie Rosenthal MD, attest that this document has been prepared under my direction and personally reviewed by me in its entirety. I further attest, that it accurately reflects all work, treatment, procedures and medical decision -making performed by me.
== END 2017-04-07 07:19 | disposition home or self-care (01) ==
LOC: JER 22:54
DX: F10.220 Alcohol dependence with intoxication, uncomplicated (principal); I10 Essential (primary) hypertension; C45.9 Mesothelioma, unspecified; Z59.0 Homelessness
CPT/HCPCS: 99282-25

== ENCOUNTER 2017-04-08 16:29 | Emergency (ER) | payer OTHER ==
[2017-04-08 16:52] VITALS: BP 116/75; PULSE 88; TEMP 97.4; BMI 35.5
--- NOTE | 2017-04-08 18:35 | PDOC ---
History of Present Illness - General History Source: Patient Exam Limitations: No Limitations - History of Present Illness Initial Comments: 04/08/17 18:44 62 M brought in by EMS for ETOH intoxication, with no acute complaints. He denies any pain. Denies any ingestion other than ETOH. <Margaret Glynn - Last Filed: 04/08/17 18:44> <Fabiana Woodard - Last Filed: 04/08/17 19:06> - General Chief Complaint: Alcohol intoxication Stated Complaint: ALCOHOL INTOXICATION Time Seen by Provider: 04/08/17 16:39 Past History <Margaret Glynn - Last Filed: 04/08/17 18:44> - Past Medical History Anemia: No Asthma: No Cancer: Yes (mesothelioma) Cardiac Disorders: No CVA: No COPD: No CHF: No Dementia: No Diabetes: No GI Disorders: No Disorders: No HTN: Yes (no med) Hypercholesterolemia: No Kidney Stones: No Liver Disease: No Psychiatric Problems: Yes (alcoholism) Seizures: No Thyroid Disease: No - Surgical History Abdominal Surgery: No Appendectomy: No Cardiac Surgery: No Cholecystectomy: No Lung Surgery: No Neurologic Surgery: No Orthopedic Surgery: No - Family Disease History Family Disease History: CA: Mother - Reproductive History Testicular Surgery: No - Immunization History TDAP Vaccination: Yes Immunization Up to Date: Yes - Suicide/Smoking/Psychosocial Hx Smoking Status: No Smoking History: Never smoked Have you smoked in the past 12 months: No Number of Cigarettes Smoked Daily: 0 Cigars Per Day: 0 Information on smoking cessation initiated: No 'Breaking Loose' booklet given: 11/02/16 Hx Alcohol Use: No Drug/Substance Use Hx: No Substance Use Type: Alcohol Hx Substance Use Treatment: Yes (last) <Fabiana Woodard - Last Filed: 04/08/17 19:06> - Past Medical History Allergies/Adverse Reactions: Allergies Allergy/AdvReac Type Severity Reaction Status Date / Time Fish Containing Products Allergy Mild Verified 04/08/17 16:52 No Known Drug Allergies Allergy Verified 04/08/17 16:52 Home Medications: Ambulatory Orders NK [No Known Home Medication] 04/03/17 Review of Systems - Review of Systems Able to Perform ROS?: Yes Comments:: 04/08/17 18:45 GENERAL/CONSTITUTIONAL: No fever or chills. No weakness. HEAD, EYES, EARS, NOSE AND THROAT: No change in vision. No ear pain or discharge. No sore throat. GASTROINTESTINAL: No nausea, vomiting, diarrhea or constipation. GENITOURINARY: No dysuria, frequency, or change in urination. CARDIOVASCULAR: No chest pain or shortness of breath. RESPIRATORY: No cough, wheezing, or hemoptysis. MUSCULOSKELETAL: No joint or muscle swelling or pain. No neck or back pain. SKIN: No rash NEUROLOGIC: No headache, vertigo, loss of consciousness, or change in strength/ sensation. ENDOCRINE: No increased thirst. No abnormal weight change. HEMATOLOGIC/LYMPHATIC: No anemia, easy bleeding, or history of blood clots. ALLERGIC/IMMUNOLOGIC: No hives or skin allergy. <Margaret Glynn - Last Filed: 04/08/17 18:44> *Physical Exam - Vital Signs Last Vital Signs Temp Pulse Resp BP Pulse Ox 97.4 F L 88 18 116/75 95 04/08/17 16:29 04/08/17 16:29 04/08/17 16:29 04/08/17 16:29 04/08/17 16:29 <Margaret Glynn - Last Filed: 04/08/17 18:44> - Vital Signs Last Vital Signs Temp Pulse Resp BP Pulse Ox 97.4 F L 88 18 116/75 95 04/08/17 16:29 04/08/17 16:29 04/08/17 16:29 04/08/17 16:29 04/08/17 16:29 - Physical Exam Comments: GENERAL: Awake, alert, and fully oriented, in no acute distress. +AOB. HEAD: No signs of trauma EYES: PERRLA, EOMI, sclera anicteric, conjunctiva clear ENT: Auricles normal inspection, hearing grossly normal, nares patent, oropharynx clear without exudates. Moist mucosa NECK: Normal ROM, supple, no lymphadenopathy, JVD, or masses LUNGS: Breath sounds equal, clear to auscultation bilaterally. No wheezes, and no crackles HEART: Regular rate and rhythm, normal S1 and S2, no murmurs, rubs or gallops ABDOMEN: Soft, nontender, normoactive bowel sounds. No guarding, no rebound. No masses EXTREMITIES: Normal range of motion, no edema. No clubbing or cyanosis. No cords, erythema, or tenderness NEUROLOGICAL: Cranial nerves II through XII grossly intact. Slurred speech. Gait not tested due to nature of complaint. Moving all extremities. SKIN: Warm, Dry, normal turgor, no rashes or lesions noted. <Fabiana Woodard - Last Filed: 04/08/17 19:06> Medical Decision Making - Medical Decision Making 04/08/17 19:06 Pt walked out of ED with steady gait. <Fabiana Woodard - Last Filed: 04/08/17 19:06> *DC/Admit/Observation/Transfer <Margaret Glynn - Last Filed: 04/08/17 18:44> - Discharge Dispostion Admit: No <Fabiana Woodard - Last Filed: 04/08/17 19:06> Diagnosis at time of Disposition: Alcohol abuse - Discharge Dispostion Disposition: ELOPED Condition at time of disposition: Stable
== END 2017-04-08 19:06 | disposition home or self-care (01) ==
LOC: JER 16:29
DX: F10.220 Alcohol dependence with intoxication, uncomplicated (principal); I10 Essential (primary) hypertension; C45.9 Mesothelioma, unspecified; Z59.0 Homelessness
CPT/HCPCS: 99282-25

== ENCOUNTER 2017-04-11 14:04 | Emergency (ER) | payer OTHER ==
[2017-04-11 14:21] VITALS: BP 104/61; PULSE 78; TEMP 97.5; BMI 37.1
--- NOTE | 2017-04-11 15:23 | PDOC ---
History of Present Illness - General History Source: Patient Exam Limitations: No Limitations - History of Present Illness Initial Comments: 04/11/17 15:26 The patient is a 62 year old male with past medical history of EtOH abuse and mesothelioma who was brought in by EMS for alcohol intoxication. In the ED he reports being upset because he found out his brother and will try to get down to [place] to be with his family. In the ED he denies any recent illness, fever, chills, nausea, vomiting, diarrhea, cough, shortness of breath, chest pain, or urinary symptoms. <Mary Galeas - Last Filed: 04/11/17 15:26> <Palmer Stone - Last Filed: 04/11/17 18:45> - General Chief Complaint: Alcohol intoxication Stated Complaint: ALCOHOL INTOXICATION Time Seen by Provider: 04/11/17 14:11 Past History <Mary Galeas - Last Filed: 04/11/17 15:26> - Past Medical History Anemia: No Asthma: No Cancer: Yes (mesothelioma) Cardiac Disorders: No CVA: No COPD: No CHF: No Dementia: No Diabetes: No GI Disorders: No Disorders: No HTN: Yes (no med) Hypercholesterolemia: No Kidney Stones: No Liver Disease: No Psychiatric Problems: Yes (alcoholism) Seizures: No Thyroid Disease: No - Surgical History Abdominal Surgery: No Appendectomy: No Cardiac Surgery: No Cholecystectomy: No Lung Surgery: No Neurologic Surgery: No Orthopedic Surgery: No - Family Disease History Family Disease History: CA: Mother - Reproductive History Testicular Surgery: No - Immunization History TDAP Vaccination: Yes Immunization Up to Date: Yes - Suicide/Smoking/Psychosocial Hx Smoking Status: No Smoking History: Unknown if ever smoked Have you smoked in the past 12 months: No Number of Cigarettes Smoked Daily: 0 Cigars Per Day: 0 'Breaking Loose' booklet given: 11/02/16 Hx Alcohol Use: Yes Drug/Substance Use Hx: No Substance Use Type: Alcohol Hx Substance Use Treatment: Yes (last) <Palmer Stone - Last Filed: 04/11/17 18:45> - Past Medical History Allergies/Adverse Reactions: Allergies Allergy/AdvReac Type Severity Reaction Status Date / Time Fish Containing Products Allergy Mild Verified 04/08/17 16:52 No Known Drug Allergies Allergy Verified 04/08/17 16:52 Home Medications: Ambulatory Orders NK [No Known Home Medication] 04/03/17 Review of Systems - Review of Systems Able to Perform ROS?: Yes Comments:: 04/11/17 15:29 A complete review of 10 out of 10 review of systems is taken and is negative apart from what is previously mentioned below and in the HPI. <Mary Galeas - Last Filed: 04/11/17 15:26> *Physical Exam - Vital Signs Last Vital Signs Temp Pulse Resp BP Pulse Ox 97.5 F L 78 18 104/61 99 04/11/17 14:19 04/11/17 14:19 04/11/17 14:19 04/11/17 14:19 04/11/17 14:19 - Physical Exam Comments: 04/11/17 15:30 Vitals: Triage Vital signs reviewed General Appearance: no acute distress, well nourished well developed, Head: Atraumatic, normocephalic Cardiac: Regular rate and rhythm, no murmurs, no rubs, no gallops, Lungs: Clear to auscultation bilateral, good air movement bilaterally, Extremities: Full range of motion to all extremities, no cyanosis, clubbing, or edema Skin: Warm and dry, no rashes or lesions, no petechiae Neuro: AOX3; Cranial Nerves 2-12 grossly intact Psych: normal mood, normal affect <Mary Galeas - Last Filed: 04/11/17 15:26> - Vital Signs Last Vital Signs Temp Pulse Resp BP Pulse Ox 97.5 F L 78 18 104/61 99 04/11/17 14:19 04/11/17 14:19 04/11/17 14:19 04/11/17 14:19 04/11/17 14:19 <Palmer Stone - Last Filed: 04/11/17 18:45> Medical Decision Making - Medical Decision Making 04/11/17 18:44 Patient well known to ED staff endorses some drinking this evening and mild depression secondary to the recent loss of his brother denies suicidal ideation or homicidal ideation. We'll allow to metabolize and reassess Reevaluation: patient clinically sober walked out of emergency department prior to receiving discharge papers <Palmer Stone - Last Filed: 04/11/17 18:45> *DC/Admit/Observation/Transfer - Attestations Scribe Attestion: 04/11/17 15:32 Documentation prepared by Mary Galeas, acting as medical office scheduler for Palmer Stone MD. <Mary Galeas - Last Filed: 04/11/17 15:26> <Palmer Stone - Last Filed: 04/11/17 18:45> Diagnosis at time of Disposition: Eloped - Discharge Dispostion Disposition: ELOPED - Referrals Referrals: Garima Birdges MD [Primary Care Provider] -
== END 2017-04-11 16:05 | disposition left against medical advice (07) ==
LOC: JER 14:04
DX: F10.220 Alcohol dependence with intoxication, uncomplicated (principal); F32.89 Other specified depressive episodes; Z63.4 Disappearance and death of family member; I10 Essential (primary) hypertension; C45.9 Mesothelioma, unspecified; Z59.0 Homelessness
CPT/HCPCS: 99283-25

== ENCOUNTER 2017-04-13 18:32 | Emergency (ER) | payer OTHER ==
[2017-04-13 19:39] VITALS: BP 155/60; PULSE 55; TEMP 97; BMI 29.0
--- NOTE | 2017-04-13 19:53 | PDOC ---
History of Present Illness - History of Present Illness Initial Comments: 04/14/17 00:38 62 y/o M well known to [place] with ETOH abuse presents to the ED via EMS, intoxicated complaining of back pain. Patient states he fell and hurt his back. He is upset he is in wheelchair and not a stretcher. <Elisabeth Griffin - Last Filed: 04/14/17 00:38> <Sue Casanova - Last Filed: 04/14/17 17:26> - General Chief Complaint: Alcohol intoxication Stated Complaint: INTOX Time Seen by Provider: 04/13/17 18:50 Past History <Elisabeth Griffin - Last Filed: 04/14/17 00:38> - Past Medical History Anemia: No Asthma: No Cancer: Yes (mesothelioma) Cardiac Disorders: No CVA: No COPD: No CHF: No Dementia: No Diabetes: No GI Disorders: No Disorders: No HTN: Yes (no med) Hypercholesterolemia: No Kidney Stones: No Liver Disease: No Psychiatric Problems: Yes (alcoholism) Seizures: No Thyroid Disease: No - Surgical History Abdominal Surgery: No Appendectomy: No Cardiac Surgery: No Cholecystectomy: No Lung Surgery: No Neurologic Surgery: No Orthopedic Surgery: No - Family Disease History Family Disease History: CA: Mother - Reproductive History Testicular Surgery: No - Immunization History TDAP Vaccination: Yes Immunization Up to Date: Yes - Suicide/Smoking/Psychosocial Hx Smoking Status: No Smoking History: Unknown if ever smoked Have you smoked in the past 12 months: No Number of Cigarettes Smoked Daily: 0 Cigars Per Day: 0 Information on smoking cessation initiated: No 'Breaking Loose' booklet given: 11/02/16 Hx Alcohol Use: No Drug/Substance Use Hx: No Substance Use Type: Alcohol Hx Substance Use Treatment: Yes (last) <Sue Casanova - Last Filed: 04/14/17 17:26> - Past Medical History Allergies/Adverse Reactions: Allergies Allergy/AdvReac Type Severity Reaction Status Date / Time Fish Containing Products Allergy Mild Verified 04/14/17 10:26 No Known Drug Allergies Allergy Verified 04/14/17 10:26 Home Medications: Ambulatory Orders NK [No Known Home Medication] 04/03/17 Trauma Specific PMHX - Complaint Specific PMHX Arthritis: No Back Injury: Yes (seen at this hospital for the rib fractures) <Sue Casanova - Last Filed: 04/14/17 17:26> Review of Systems - Review of Systems Comments:: 04/14/17 00:38 CONSTITUTIONAL: Absent: fever, chills, fatigue EYES: Absent: visual changes ENT: Absent: ear pain, sore throat CARDIOVASCULAR: Absent: chest pain, palpitations RESPIRATORY: Absent: cough, SOB GI: Absent: abdominal pain, nausea, vomiting, constipation, diarrhea GENITOURINARY: Absent: dysuria, frequency, hematuria MUSCULOSKELETAL: (+) back pain, Absent: arthralgia, myalgia SKIN: Absent: rash NEURO: Absent: headache <Elisabeth Griffin - Last Filed: 04/14/17 00:38> *Physical Exam - Vital Signs Last Vital Signs Temp Pulse Resp BP Pulse Ox 97.0 F L 55 L 18 155/60 95 04/13/17 18:50 04/13/17 18:50 04/13/17 18:50 04/13/17 18:50 04/13/17 18:50 - Physical Exam Comments: 04/14/17 00:39 GENERAL: No apparent distress. Intoxicated. HEENT: Normocephalic, atraumatic. PERRL, EOM intact. CARDIOVASCULAR: Regular rate and rhythm. PULMONARY: Clear to auscultation bilaterally. ABDOMEN: Soft, non-tender. EXTREMITIES: Tenderness at L5. SKIN: Small, old abrasion on back. NEUROLOGICAL: Follows commands. <Elisabeth Griffin - Last Filed: 04/14/17 00:38> - Vital Signs Last Vital Signs Temp Pulse Resp BP Pulse Ox 97.0 F L 55 L 18 155/60 95 04/13/17 18:50 04/13/17 18:50 04/13/17 18:50 04/13/17 18:50 04/13/17 18:50 <Sue Casanova - Last Filed: 04/14/17 17:26> *DC/Admit/Observation/Transfer - Attestations Scribe Attestion: 04/14/17 00:42 Documentation prepared by Elisabeth Griffin, acting as medical billing coder for Sue Casanova MD. <Elisabeth Griffin - Last Filed: 04/14/17 00:38> <EdilbertoSue Mcneill - Last Filed: 04/14/17 17:26> Diagnosis at time of Disposition: Alcohol abuse, Alcohol dependence - Discharge Dispostion Disposition: HOME - Referrals Referrals: Garima Bridges MD [Primary Care Provider] - - Patient Instructions Printed Discharge Instructions: DI for Alcohol Abuse Additional Instructions: You will be transported to [facility] at 8:30 please follow through with detox. Return to ED for any concerns.
[2017-04-14] MEDS ORDERED: chlordiazePOXIDE HCL 25 MG CAPSULE PO ONE (06:36)
[2017-04-14] MEDS ORDERED: chlordiazePOXIDE HCL 25 MG CAPSULE ONE (06:41)
--- NOTE | 2017-04-14 06:58 | PDOC ---
*Physical Exam - Vital Signs Last Vital Signs Temp Pulse Resp BP Pulse Ox 97.0 F L 55 L 18 155/60 95 04/13/17 18:50 04/13/17 18:50 04/13/17 18:50 04/13/17 18:50 04/13/17 18:50 - Physical Exam General Appearance: Yes: Nourished ED Treatment Course - Medications Given in the ED: ED Medications Discontinued Medications Generic Name Dose Route Start Last Admin Trade Name Francisco Javier PRN Reason Stop Dose Admin Chlordiazepoxide HCl 100 mg 04/14/17 06:36 04/14/17 06:46 Librium - PO 04/14/17 06:37 100 mg ONCE ONE Administration Medical Decision Making - Medical Decision Making 04/14/17 06:52 Patient well known to ED staff signout to observe patient discharge and morning. Patient requesting detox. Call placed to [facility] requested to have patient sent down at 8:00. 100 mg of Librium given an emergency department. Security aware we'll transfer patient at 7:30 *DC/Admit/Observation/Transfer Diagnosis at time of Disposition: Alcohol abuse, Alcohol dependence - Referrals Referrals: Garima Bridges MD [Primary Care Provider] - - Patient Instructions Printed Discharge Instructions: DI for Alcohol Abuse Additional Instructions: You will be transported to [facility] at 8:30 please follow through with detox. Return to ED for any concerns. - Post Discharge Activity
== END 2017-04-14 07:47 | disposition home or self-care (01) ==
LOC: JER 18:32
DX: F10.220 Alcohol dependence with intoxication, uncomplicated (principal); M54.5 Low back pain; W19.XXXA Unspecified fall, initial encounter; Y93.89 Activity, other specified; Y92.89 Other specified places as the place of occurrence of the external cause; Y99.8 Other external cause status; C45.9 Mesothelioma, unspecified; I10 Essential (primary) hypertension; Z59.0 Homelessness
CPT/HCPCS: 72070-TC; 72100-TC; 99283-25

== ENCOUNTER 2017-04-14 20:32 | Emergency (ER) | payer OTHER ==
[2017-04-14 20:48] VITALS: BP 102/54; PULSE 101; TEMP 98.7; BMI 25.8
--- NOTE | 2017-04-14 22:58 | PDOC ---
History of Present Illness - General Chief Complaint: Alcohol intoxication Stated Complaint: INTOX Time Seen by Provider: 04/14/17 21:04 - History of Present Illness Initial Comments: 04/14/17 22:53 62-year-old male undomiciled complaining of "I drank a pint of vodka" returns to the ER brought in by ambulance for evaluation. Patient was discharged this morning to [facility] patient reports that they do not have any beds. Patient with frequent visits to the ER for similar complaint.No visible head trauma noted, no signs of trauma. Breath smells of alcohol patient is disheveled asking for a stretcher to sleep. "I can't sit in the chair, I need a bed or putting me in a taxi. " 04/14/17 22:56 Past History - Past Medical History Allergies/Adverse Reactions: Allergies Allergy/AdvReac Type Severity Reaction Status Date / Time Fish Containing Products Allergy Mild Verified 04/14/17 20:48 No Known Drug Allergies Allergy Verified 04/14/17 20:48 Home Medications: Ambulatory Orders NK [No Known Home Medication] 04/03/17 Anemia: No Asthma: No Cancer: Yes (mesothelioma) Cardiac Disorders: No CVA: No COPD: No CHF: No Dementia: No Diabetes: No GI Disorders: No Disorders: No HTN: Yes Hypercholesterolemia: No Kidney Stones: No Liver Disease: No Psychiatric Problems: Yes (alcoholism) Seizures: No Thyroid Disease: No - Surgical History Abdominal Surgery: No Appendectomy: No Cardiac Surgery: No Cholecystectomy: No Lung Surgery: No Neurologic Surgery: No Orthopedic Surgery: No - Family Disease History Family Disease History: CA: Mother - Reproductive History Testicular Surgery: No - Immunization History TDAP Vaccination: Yes Immunization Up to Date: Yes - Suicide/Smoking/Psychosocial Hx Smoking Status: No Smoking History: Never smoked Have you smoked in the past 12 months: No Number of Cigarettes Smoked Daily: 0 Cigars Per Day: 0 Information on smoking cessation initiated: No 'Breaking Loose' booklet given: 11/02/16 Hx Alcohol Use: Yes Drug/Substance Use Hx: No Substance Use Type: Alcohol Hx Substance Use Treatment: Yes Review of Systems - Review of Systems Able to Perform ROS?: Yes Is the patient limited Maori proficient: No Constitutional: No: Symptoms Reported, See HPI, Chills, Diaphoresis, Fever, Loss of Appetite, Malaise, Night Sweats, Weakness, Weight Stable, Unintentional Wgt. Loss, Unexplained wgt Loss, Other Psychiatric: Yes: Emotional Problems *Physical Exam - Vital Signs Last Vital Signs Temp Pulse Resp BP Pulse Ox 98.7 F 101 H 20 102/54 96 04/14/17 20:44 04/14/17 20:44 04/14/17 20:44 04/14/17 20:44 04/14/17 20:44 - Physical Exam General Appearance: Yes: Disheveled, Alcohol on Breath HEENT: positive: Other (normocephalic). negative: EOMI, DOUGLAS, Normal ENT Inspection, Normal Voice, Symmetrical, TMs Normal, Pharynx Normal, Pale Conjunctivae, Photophobia, Scleral Icterus (R), Scleral Icterus (L), Muffled/ Hoarse voice, Pharyngeal Erythema, Tonsillar Exudate, Tonsillar Erythema, Nasal Congestion, Rhinorrhea, Sinus Tenderness, Orbits, Hearing Decreased, Hearing Grossly Normal, TM Bulging, TM Dull, TM Erythema, Lesions, Colon, Excessive drooling, Thrush Respiratory/Chest: positive: Lungs Clear, Normal Breath Sounds Cardiovascular: positive: Regular Rhythm, Regular Rate Neurologic: positive: Alert, Normal Mood/Affect Medical Decision Making - Medical Decision Making 04/14/17 22:57 A: alcohol intoxication P: dextrose stick Will await sobriety prior to discharge. 04/15/17 05:50 Patient tolerated PO food. walking around. will d/c home *DC/Admit/Observation/Transfer Diagnosis at time of Disposition: Alcohol abuse, Alcohol dependence - Discharge Dispostion Disposition: HOME - Referrals Referrals: Garima Bridges MD [Primary Care Provider] - - Patient Instructions Printed Discharge Instructions: Alcohol and Stress: There are Safer Ways to [place] Additional Instructions: refrain from drinking alcohol.
== END 2017-04-15 06:34 | disposition home or self-care (01) ==
LOC: JER 20:32
DX: F10.220 Alcohol dependence with intoxication, uncomplicated (principal); I10 Essential (primary) hypertension; C45.9 Mesothelioma, unspecified; Z59.0 Homelessness
CPT/HCPCS: 99281-25

== ENCOUNTER 2017-04-16 15:23 | Emergency (ER) | payer OTHER ==
--- NOTE | 2017-04-16 15:49 | PDOC ---
History of Present Illness - General History Source: Patient Exam Limitations: No Limitations - History of Present Illness Initial Comments: 04/16/17 17:06 62 y/o M well known to [place] with ETOH abuse presents to the ED via EMS, intoxicated complaining of back pain. Patient states he fell and hurt his back. He is upset he is in wheelchair and not a stretcher. <Zo Mtz - Last Filed: 04/16/17 17:06> <Skye Rashid - Last Filed: 04/16/17 17:43> - General Stated Complaint: DIFFICULTY BREATHING Time Seen by Provider: 04/16/17 15:49 Past History <Zo Mtz - Last Filed: 04/16/17 17:06> - Past Medical History Anemia: No Asthma: No Cancer: Yes (mesothelioma) Cardiac Disorders: No CVA: No COPD: No CHF: No Dementia: No Diabetes: No GI Disorders: No Disorders: No HTN: Yes Hypercholesterolemia: No Kidney Stones: No Liver Disease: No Psychiatric Problems: Yes (alcoholism) Seizures: No Thyroid Disease: No - Surgical History Abdominal Surgery: No Appendectomy: No Cardiac Surgery: No Cholecystectomy: No Lung Surgery: No Neurologic Surgery: No Orthopedic Surgery: No - Family Disease History Family Disease History: CA: Mother - Reproductive History Testicular Surgery: No - Immunization History TDAP Vaccination: Yes Immunization Up to Date: Yes - Suicide/Smoking/Psychosocial Hx Smoking Status: No Smoking History: Never smoked Have you smoked in the past 12 months: No Number of Cigarettes Smoked Daily: 0 Cigars Per Day: 0 'Breaking Loose' booklet given: 11/02/16 Hx Alcohol Use: Yes Drug/Substance Use Hx: No Substance Use Type: Alcohol Hx Substance Use Treatment: Yes <Skye Rashid - Last Filed: 04/16/17 17:43> - Past Medical History Allergies/Adverse Reactions: Allergies Allergy/AdvReac Type Severity Reaction Status Date / Time Fish Containing Products Allergy Mild Verified 04/14/17 20:48 No Known Drug Allergies Allergy Verified 04/14/17 20:48 Home Medications: Ambulatory Orders NK [No Known Home Medication] 04/03/17 Review of Systems - Review of Systems All Other Systems: Reviewed and Negative <Zo Mtz - Last Filed: 04/16/17 17:06> *Physical Exam - Vital Signs Last Vital Signs Temp Pulse Resp BP Pulse Ox 97.2 F L 111 H 20 111/72 97 04/16/17 15:49 04/16/17 15:49 04/16/17 15:49 04/16/17 15:49 04/16/17 15:49 - Physical Exam Comments: 04/16/17 17:07 GENERAL: Awake, alert, and fully oriented, in no acute distress HEAD: No signs of trauma EYES: PERRLA, EOMI, sclera anicteric, conjunctiva clear ENT: Auricles normal inspection, hearing grossly normal, nares patent, oropharynx clear without exudates. Moist mucosa NECK: Normal ROM, supple, no lymphadenopathy, JVD, or masses LUNGS: Breath sounds equal, clear to auscultation bilaterally. No wheezes, and no crackles HEART: Regular rate and rhythm, normal S1 and S2, no murmurs, rubs or gallops ABDOMEN: Soft, nontender, normoactive bowel sounds. No guarding, no rebound. No masses EXTREMITIES: Normal range of motion, no edema. No clubbing or cyanosis. No cords, erythema, or tenderness NEUROLOGICAL: Cranial nerves II through XII grossly intact. Normal speech, normal gait SKIN: Warm, Dry, normal turgor, no rashes or lesions noted. <Zo Mtz - Last Filed: 04/16/17 17:06> Medical Decision Making - Medical Decision Making 04/16/17 17:04 pt presents after being found outside -pt admits to drinking alcohol, not clinically intoxicated. ambultory with a steady gait and no slurred speech 04/16/17 17:05 pt stable for d/c to home. will take taxi to home. <Skye Rashid - Last Filed: 04/16/17 17:43> *DC/Admit/Observation/Transfer - Attestations Scribe Attestion: 04/16/17 17:07 Documentation prepared by Zo Mtz, acting as medical assistant ob gyn for Skye Rashid DO, MD/. <Zo Mtz - Last Filed: 04/16/17 17:06> - Discharge Dispostion Admit: No - Attestations Physician Attestion: 04/16/17 17:05 I, Dr. Skye Kurkowski, DO, attest that this document has been prepared under my direction and personally reviewed by me in its entirety. I further attest, that it accurately reflects all work, treatment, procedures and medical decision -making performed by me. <Skye Rashid - Last Filed: 04/16/17 17:43> - Discharge Dispostion Disposition: HOME Condition at time of disposition: Stable - Referrals Referrals: Toni Iyer MD [Staff Physician] - - Patient Instructions Printed Discharge Instructions: DI for Alcohol Abuse Additional Instructions: Please stop drinking alcohol. Please follow up with your PMD. Please return to the ED with any further concerns.
[2017-04-16 15:53] VITALS: BP 111/72; PULSE 111; TEMP 97.2; BMI 32.5
== END 2017-04-16 17:28 | disposition home or self-care (01) ==
LOC: JER 15:23
DX: M54.89 Other dorsalgia (principal); F10.20 Alcohol dependence, uncomplicated; I10 Essential (primary) hypertension; C45.9 Mesothelioma, unspecified; Z59.0 Homelessness
CPT/HCPCS: 99282-25

== ENCOUNTER 2017-04-28 12:39 | Emergency (ER) | payer OTHER ==
[2017-04-28 13:34] VITALS: BP 100/76; PULSE 85; TEMP 97.9; BMI 33.0
--- NOTE | 2017-04-28 13:53 | PDOC ---
History of Present Illness - General History Source: Patient Exam Limitations: No Limitations - History of Present Illness Initial Comments: 04/28/17 14:37 The patient is a 62 year old male with past medical history of EtOH abuse and mesothelioma who was brought in by EMS for alcohol intoxication. In the ED he reports being upset because he found out his brother and will try to get down to [place] to be with his family. In the ED he denies any recent illness, fever, chills, nausea, vomiting, diarrhea, cough, shortness of breath, chest pain, or urinary symptoms. <Zo Mtz - Last Filed: 04/28/17 15:33> <Palmer Stone - Last Filed: 04/28/17 16:16> - General Chief Complaint: Alcohol intoxication Stated Complaint: REVISIT Time Seen by Provider: 04/28/17 12:56 Past History <Zo Mtz - Last Filed: 04/28/17 15:33> - Past Medical History Anemia: No Asthma: No Cancer: Yes (mesothelioma) Cardiac Disorders: No CVA: No COPD: No CHF: No Dementia: No Diabetes: No GI Disorders: No Disorders: No HTN: Yes Hypercholesterolemia: No Kidney Stones: No Liver Disease: No Psychiatric Problems: Yes (alcoholism) Seizures: No Thyroid Disease: No - Surgical History Abdominal Surgery: No Appendectomy: No Cardiac Surgery: No Cholecystectomy: No Lung Surgery: No Neurologic Surgery: No Orthopedic Surgery: No - Family Disease History Family Disease History: CA: Mother - Reproductive History Testicular Surgery: No - Immunization History TDAP Vaccination: Yes Immunization Up to Date: Yes - Suicide/Smoking/Psychosocial Hx Smoking Status: No Smoking History: Never smoked Have you smoked in the past 12 months: No Number of Cigarettes Smoked Daily: 0 Cigars Per Day: 0 Information on smoking cessation initiated: No 'Breaking Loose' booklet given: 11/02/16 Hx Alcohol Use: Yes Drug/Substance Use Hx: No Substance Use Type: Alcohol Hx Substance Use Treatment: Yes <Palmer Stone - Last Filed: 04/28/17 16:16> - Past Medical History Allergies/Adverse Reactions: Allergies Allergy/AdvReac Type Severity Reaction Status Date / Time Fish Containing Products Allergy Mild Verified 04/28/17 13:32 No Known Drug Allergies Allergy Verified 04/28/17 13:32 Home Medications: Ambulatory Orders NK [No Known Home Medication] 04/03/17 Review of Systems - Review of Systems Able to Perform ROS?: Yes Comments:: 04/28/17 14:21 A complete review of 10 out of 10 review of systems is taken and is negative apart from what is previously mentioned below and in the HPI. <Zo Mtz - Last Filed: 04/28/17 15:33> *Physical Exam - Vital Signs Last Vital Signs Temp Pulse Resp BP Pulse Ox 97.9 F 85 18 100/76 100 04/28/17 13:32 04/28/17 13:32 04/28/17 13:32 04/28/17 13:32 04/28/17 13:32 - Physical Exam Comments: 04/28/17 14:21 Vitals: Triage Vital signs reviewed General Appearance: no acute distress, well nourished well developed, Head: Atraumatic, normocephalic Neck: Supple;No Nuchal rigidity Chest Wall: Nontender Cardiac: Regular rate and rhythm, no murmurs, no rubs, no gallops, Lungs: Clear to auscultation bilateral, good air movement bilaterally, Abdomen: Soft, nondistended, normal bowel sounds, nontender to palpation Extremities: Full range of motion to all extremities, no cyanosis, clubbing, or edema Skin: +Abrasion to bridge of nose and forehead. Warm and dry, no rashes or lesions, no petechiae <Zo Mtz - Last Filed: 04/28/17 15:33> - Vital Signs Last Vital Signs Temp Pulse Resp BP Pulse Ox 97.9 F 85 18 100/76 100 04/28/17 13:32 04/28/17 13:32 04/28/17 13:32 04/28/17 13:32 04/28/17 13:32 <Palmer Stone - Last Filed: 04/28/17 16:16> Medical Decision Making - Medical Decision Making 04/28/17 14:[address] head <Zo Mtz - Last Filed: 04/28/17 15:33> - Medical Decision Making Head CT negative patient well-appearing asking to go home clinically no longer intoxicated. We'll for patient detox but is not interested Findings, need for follow-up and strict return instructions discussed with patient. 04/28/17 16:15 <Palmer Stone - Last Filed: 04/28/17 16:16> *DC/Admit/Observation/Transfer - Attestations Scribe Attestion: 04/28/17 15:34 Documentation prepared by Zo Mtz, acting as certified medical aide for Palmer Stone MD <Zo Mtz - Last Filed: 04/28/17 15:33> - Discharge Dispostion Admit: No <Palmer Stone - Last Filed: 04/28/17 16:16> Diagnosis at time of Disposition: Intoxication - Patient Instructions Printed Discharge Instructions: DI for Alcohol Abuse Additional Instructions: To not drink alcohol in excess. If you reconsider detox please follow up at [facility]. Return to emergency department for any concerns.
== END 2017-04-28 16:33 | disposition left against medical advice (07) ==
LOC: JER 12:39
DX: F10.220 Alcohol dependence with intoxication, uncomplicated (principal); I10 Essential (primary) hypertension; C45.9 Mesothelioma, unspecified; W19.XXXA Unspecified fall, initial encounter; Y93.89 Activity, other specified; Y92.89 Other specified places as the place of occurrence of the external cause; Z59.0 Homelessness
CPT/HCPCS: 70450-TC; 99282-25

== ENCOUNTER 2017-04-29 14:22 | Emergency (ER) | payer OTHER ==
--- NOTE | 2017-04-29 15:03 | PDOC ---
History of Present Illness - History of Present Illness Initial Comments: 04/29/17 15:39 The patient is a 62 year old male with PMHx of EtOH abuse and mesothelioma who was brought in by EMS for alcohol intoxication and back pain today. He has an old nose and forehead abrasion (about 1 week old ). He denies any other complaint <Cathy Garrett - Last Filed: 04/29/17 15:41> <Skye Rashid - Last Filed: 05/01/17 00:24> - General Chief Complaint: Back Pain Stated Complaint: REVISIT Time Seen by Provider: 04/29/17 14:28 Past History <Cathy Garrett - Last Filed: 04/29/17 15:41> - Past Medical History Anemia: No Asthma: No Cancer: Yes (mesothelioma) Cardiac Disorders: No CVA: No COPD: No CHF: No Dementia: No Diabetes: No GI Disorders: No Disorders: No HTN: Yes Hypercholesterolemia: No Kidney Stones: No Liver Disease: No Psychiatric Problems: Yes (alcoholism) Seizures: No Thyroid Disease: No - Surgical History Abdominal Surgery: No Appendectomy: No Cardiac Surgery: No Cholecystectomy: No Lung Surgery: No Neurologic Surgery: No Orthopedic Surgery: No - Family Disease History Family Disease History: CA: Mother - Reproductive History Testicular Surgery: No - Immunization History TDAP Vaccination: Yes Immunization Up to Date: Yes - Suicide/Smoking/Psychosocial Hx Smoking Status: No Smoking History: Never smoked Have you smoked in the past 12 months: No Number of Cigarettes Smoked Daily: 0 Cigars Per Day: 0 'Breaking Loose' booklet given: 11/02/16 Hx Alcohol Use: Yes Drug/Substance Use Hx: No Substance Use Type: Alcohol Hx Substance Use Treatment: Yes <Skye Rashid - Last Filed: 05/01/17 00:24> - Past Medical History Allergies/Adverse Reactions: Allergies Allergy/AdvReac Type Severity Reaction Status Date / Time Fish Containing Products Allergy Mild Verified 04/29/17 15:17 No Known Drug Allergies Allergy Verified 04/29/17 15:17 Home Medications: Ambulatory Orders NK [No Known Home Medication] 04/03/17 Review of Systems - Review of Systems Comments:: 04/29/17 15:39 ADULT ROS GENERAL/CONSTITUTIONAL: +intoxicated. No fever or chills. No weakness. HEAD, EYES, EARS, NOSE AND THROAT: No change in vision. No ear pain or discharge. No sore throat. GASTROINTESTINAL: No nausea, vomiting, diarrhea or constipation. GENITOURINARY: No dysuria, frequency, or change in urination. CARDIOVASCULAR: No chest pain or shortness of breath. RESPIRATORY: No cough, wheezing, or hemoptysis. MUSCULOSKELETAL: +back pain No other joint or muscle swelling or pain. SKIN: +old nose and forehead abrasion. No rash NEUROLOGIC: No headache, vertigo, loss of consciousness, or change in strength/ sensation. ENDOCRINE: No increased thirst. No abnormal weight change. HEMATOLOGIC/LYMPHATIC: No anemia, easy bleeding, or history of blood clots. ALLERGIC/IMMUNOLOGIC: No hives or skin allergy. <Cathy Garrett - Last Filed: 04/29/17 15:41> *Physical Exam - Vital Signs Last Vital Signs Temp Pulse Resp BP Pulse Ox 97.1 F L 90 18 113/71 100 04/29/17 14:22 04/29/17 14:22 04/29/17 14:22 04/29/17 14:22 04/29/17 14:22 - Physical Exam Comments: GENERAL: Intoxicated. Awake, alert, and fully oriented, in no acute distress HEAD: No signs of trauma EYES: PERRLA, EOMI, sclera anicteric, conjunctiva clear ENT: Auricles normal inspection, hearing grossly normal, nares patent, oropharynx clear without exudates. Moist mucosa NECK: Normal ROM, supple, no lymphadenopathy, JVD, or masses LUNGS: Breath sounds equal, clear to auscultation bilaterally. No wheezes, and no crackles HEART: Regular rate and rhythm, normal S1 and S2, no murmurs, rubs or gallops ABDOMEN: Soft, nontender, normoactive bowel sounds. No guarding, no rebound. No masses EXTREMITIES: Normal range of motion, no edema. No clubbing or cyanosis. No cords, erythema, or tenderness NEUROLOGICAL: Cranial nerves II through XII grossly intact. Clear speech, steady gait SKIN: Old nose and forehead abrasion (no active bleeding). Warm, Dry, normal turgor, no rashes or lesions noted. <Cathy Garrett - Last Filed: 04/29/17 15:41> Medical Decision Making - Medical Decision Making 05/01/17 00:22 a/p: 62yo male with alcohol intoxication old abrasion to nose, no new trauma will monitor and metabolize etoh no slurred speech steady gait 05/01/17 00:23 on reassessment, pt eloped from the ED <Skye Rashid - Last Filed: 05/01/17 00:24> *DC/Admit/Observation/Transfer - Attestations Scribe Attestion: 04/29/17 15:43 Documentation prepared by Cathy Garrett, acting as medical office specialist for Skye Rashid DO. <Cathy Garrett - Last Filed: 04/29/17 15:41> - Attestations Physician Attestion: 05/01/17 00:23 I, Dr. Skye Rashid DO, attest that this document has been prepared under my direction and personally reviewed by me in its entirety. I further attest, that it accurately reflects all work, treatment, procedures and medical decision -making performed by me. <Skye Rashid - Last Filed: 05/01/17 00:24> Diagnosis at time of Disposition: Substance abuse, Alcohol intoxication - Discharge Dispostion Disposition: ELOPED Condition at time of disposition: Unchanged/Unknown
[2017-04-29 15:17] VITALS: BP 113/71; PULSE 90; TEMP 97.1; BMI 33.0
== END 2017-04-29 18:20 | disposition left against medical advice (07) ==
LOC: JER 14:22
DX: F10.120 Alcohol abuse with intoxication, uncomplicated (principal); C45.9 Mesothelioma, unspecified; I10 Essential (primary) hypertension
CPT/HCPCS: 99283-25

== ENCOUNTER 2017-04-30 14:12 | Emergency (ER) | payer OTHER ==
[2017-04-30 14:46] VITALS: BP 116/54; PULSE 88; TEMP 98.7; BMI 35.5
--- NOTE | 2017-04-30 15:55 | PDOC ---
History of Present Illness - General Chief Complaint: Alcohol intoxication Stated Complaint: REVISIT History Source: Patient Exam Limitations: No Limitations - History of Present Illness Initial Comments: 04/30/17 15:53 62-year-old male with a history of alcohol abuse very well known to the ER department with near daily visits here today complaining of intoxication. Patient states he is here in the ER when asked to see a doctor. Currently has no complaints is requesting food has abrasions to his face which he states are old from a fall he sustained several days ago. No nausea no vomiting no other complaints of pain. Past History - Past Medical History Allergies/Adverse Reactions: Allergies Allergy/AdvReac Type Severity Reaction Status Date / Time Fish Containing Products Allergy Mild Verified 04/29/17 15:17 No Known Drug Allergies Allergy Verified 04/29/17 15:17 Home Medications: Ambulatory Orders NK [No Known Home Medication] 04/03/17 Anemia: No Asthma: No Cancer: Yes (mesothelioma) Cardiac Disorders: No CVA: No COPD: No CHF: No DVT: No Dementia: No Diabetes: No GI Disorders: No Disorders: No HTN: Yes Hypercholesterolemia: No Kidney Stones: No Liver Disease: No Psychiatric Problems: Yes (alcoholism) Seizures: No Thyroid Disease: No - Surgical History Abdominal Surgery: No Appendectomy: No Cardiac Surgery: No Cholecystectomy: No Lung Surgery: No Neurologic Surgery: No Orthopedic Surgery: No - Family Disease History Family Disease History: CA: Mother - Reproductive History Testicular Surgery: No - Immunization History TDAP Vaccination: Yes Immunization Up to Date: Yes - Suicide/Smoking/Psychosocial Hx Smoking Status: No Smoking History: Former smoker Have you smoked in the past 12 months: No Number of Cigarettes Smoked Daily: 0 Cigars Per Day: 0 Information on smoking cessation initiated: No 'Breaking Loose' booklet given: 11/02/16 Hx Alcohol Use: Yes Drug/Substance Use Hx: No Substance Use Type: Alcohol Hx Substance Use Treatment: Yes Review of Systems - Review of Systems Constitutional: No: Chills, Diaphoresis HEENTM: No: Eye Pain Respiratory: No: Cough, Orthopnea Cardiac (ROS): No: Chest Pain, Edema All Other Systems: Reviewed and Negative *Physical Exam - Vital Signs Last Vital Signs Temp Pulse Resp BP Pulse Ox 98.7 F 88 16 116/54 100 04/30/17 14:42 04/30/17 14:42 04/30/17 14:42 04/30/17 14:42 04/30/17 14:42 - Physical Exam General Appearance: Yes: Nourished, Appropriately Dressed Respiratory/Chest: positive: Chest Tender, Lungs Clear, Normal Breath Sounds Cardiovascular: positive: Regular Rhythm, Regular Rate, S1, S2 Gastrointestinal/Abdominal: positive: Tender, Flat, Soft Musculoskeletal: positive: Normal Inspection. negative: CVA Tenderness Integumentary: positive: Normal Color, Dry, Warm Neurologic: positive: Fully Oriented, Alert, Normal Mood/Affect Medical Decision Making - Medical Decision Making 04/30/17 15:50 62-year-old male with a history of alcohol abuse very well known to the ER department with near daily visits here today complaining of intoxication. Patient states he is here in the ER when asked to see a doctor. Currently has no complaints is requesting food has abrasions to his face which he states are old from a fall he sustained several days ago. No nausea no vomiting no other complaints of pain. 04/30/17 15:54 patient Ambulating without difficulty, will discharge *DC/Admit/Observation/Transfer Diagnosis at time of Disposition: Alcohol abuse, Abuse, drug or alcohol - Discharge Dispostion Disposition: HOME Condition at time of disposition: Good - Referrals Referrals: Garima Bridges MD [Primary Care Provider] - - Patient Instructions Printed Discharge Instructions: DI for Alcohol Abuse - Post Discharge Activity
== END 2017-04-30 16:37 | disposition home or self-care (01) ==
LOC: JER 14:12
DX: F10.220 Alcohol dependence with intoxication, uncomplicated (principal); I10 Essential (primary) hypertension; C45.9 Mesothelioma, unspecified; Z59.0 Homelessness
CPT/HCPCS: 99282-25

== ENCOUNTER 2017-05-02 17:31 | Emergency (ER) | payer OTHER ==
[2017-05-02 17:50] VITALS: BMI 33.0
--- NOTE | 2017-05-02 18:06 | PDOC ---
History of Present Illness - General Chief Complaint: Chronic pain Stated Complaint: LOWER BACK PAIN Time Seen by Provider: 05/02/17 18:02 - History of Present Illness Initial Comments: 05/02/17 18:39 The patient is a 62 year old male with a history of alcohol abuse and chronic back pain who presents to the ED for evaluation via EMS. The patient has been seen in the ED daily over the past 5 days for intoxication. He reports that he drank today and complains of some of his usual mid back pain, but otherwise has no other complaints. He had a recent CT head that was negative 1 day ago and normal labs 8 days ago. He denies fevers, chills, headache, numbness, weakness , tingling, nausea, vomiting, abdominal pain, chest pain, SOB, or changes with urination or bowel movements. Past History - Past Medical History Allergies/Adverse Reactions: Allergies Allergy/AdvReac Type Severity Reaction Status Date / Time Fish Containing Products Allergy Mild Verified 05/02/17 17:50 No Known Drug Allergies Allergy Verified 05/02/17 17:50 Home Medications: Ambulatory Orders NK [No Known Home Medication] 04/03/17 Anemia: No Asthma: No Cancer: Yes (mesothelioma) Cardiac Disorders: No CVA: No COPD: No CHF: No DVT: No Dementia: No Diabetes: No GI Disorders: No Disorders: No HTN: Yes Hypercholesterolemia: No Kidney Stones: No Liver Disease: No Psychiatric Problems: Yes (alcoholism) Seizures: No Thyroid Disease: No - Surgical History Abdominal Surgery: No Appendectomy: No Cardiac Surgery: No Cholecystectomy: No Lung Surgery: No Neurologic Surgery: No Orthopedic Surgery: No - Family Disease History Family Disease History: CA: Mother - Reproductive History Testicular Surgery: No - Immunization History TDAP Vaccination: Yes Immunization Up to Date: Yes - Suicide/Smoking/Psychosocial Hx Smoking Status: No Smoking History: Current every day smoker Have you smoked in the past 12 months: No Number of Cigarettes Smoked Daily: 0 Cigars Per Day: 0 Information on smoking cessation initiated: No 'Breaking Loose' booklet given: 11/02/16 Hx Alcohol Use: Yes Drug/Substance Use Hx: No Substance Use Type: Alcohol Hx Substance Use Treatment: Yes Review of Systems - Review of Systems Comments:: 05/02/17 18:42 Constitutional: Intoxication. No fevers, chills, fatigue, malaise HEENT: No Rhinorrhea, nasal congestion, visual changes Cardiovascular: No chest pain, syncope, palpitations, lightheadedness Respiratory: No Cough, SOB, Hemoptysis, Gastrointestinal: No Abdominal pain, Nausea, Vomiting, Constipation, Diarrhea, Melena Genitourinary: No Dysuria, Frequency, Urgency, Hesitancy, Hematuria, Flank pain Musculoskeletal: Mid back pain. No Myalgia, arthralgia Skin: No rashes, bruising, pallor Neurologic: No Headache, Dizziness, Numbness, Weakness, or Tingling Psychiatric: No Hallucinations. No SI or HI *Physical Exam - Vital Signs Last Vital Signs Temp Pulse Resp BP Pulse Ox 98.2 F 92 H 18 125/62 94 L 05/02/17 17:35 05/02/17 17:35 05/02/17 17:35 05/02/17 17:35 05/02/17 17:35 - Physical Exam Comments: 05/02/17 18:43 General Appearance: Intoxicated. Resting comfortably. Nourished. No Apparent Distress HEENT: EOMI, DOUGLAS. Neck: No Cervical Lymphadenopathy Respiratory/Chest: Lungs Clear, Normal Breath Sounds. No Crackles, Rales, Rhonchi, Wheezing Cardiovascular: Regular Rhythm, Regular Rate. No Murmur, Gallops, Rubs Gastrointestinal/Abdominal: Normal Bowel Sounds, Soft. No Guarding, Rebound, Tenderness Musculoskeletal: No spinal tenderness. No CVA Tenderness Extremity: Normal Capillary Refill Integumentary: Normal Color, Dry, Warm Neurologic: Fully Oriented, Alert, Normal Mood/Affect, Normal Response, Motor Strength 5/5. Medical Decision Making - Medical Decision Making 05/02/17 18:44 The patient is a 62 year old male with a history of alcohol abuse and chronic back pain who presents to the ED for evaluation via EMS. The patient is resting comfortably on exam visibly intoxicated. Given his recent imaging and labs, we will not repeat any here in the ED. We will continue to monitor the patient and reassess for sobriety. 05/02/17 19:00 Patient signed out to the night team pending reassessment for sobriety. *DC/Admit/Observation/Transfer Diagnosis at time of Disposition: Alcohol intoxication - Referrals Referrals: Garima Bridges MD [Staff Physician] - - Patient Instructions Printed Discharge Instructions: DI for Alcohol Abuse Additional Instructions: Please return to the ER if you experience concerning or worsening symptoms including worsening pain, chest pain, vomiting, or difficulty breathing. You were seen in the ER for alcohol intoxication. We recommend that you attempt to reduce your alcohol intake. Please call to schedule a follow up appointment with a primary care provider to discuss your ER visit. - Post Discharge Activity
--- NOTE | 2017-05-02 21:35 | PDOC ---
*Physical Exam - Vital Signs Last Vital Signs Temp Pulse Resp BP Pulse Ox 98.2 F 92 H 18 125/62 94 L 05/02/17 17:35 05/02/17 17:35 05/02/17 17:35 05/02/17 17:35 05/02/17 17:35 - Physical Exam General Appearance: Yes: Disheveled. No: Apparent Distress Neck: positive: Trachea midline Respiratory/Chest: positive: Lungs Clear, Normal Breath Sounds. negative: Respiratory Distress, Accessory Muscle Use Cardiovascular: positive: Regular Rhythm, Regular Rate, S1, S2. negative: Edema , JVD, Murmur, Gallop/S3, Gallop/S4 Gastrointestinal/Abdominal: positive: Flat, Soft, Increased Bowel Sounds. negative: Tender Musculoskeletal: positive: Normal Inspection Extremity: positive: Normal Inspection Integumentary: positive: Normal Color, Dry, Warm Medical Decision Making - Medical Decision Making 05/02/17 21:31 Signout received from day team. Patient is a 62 yo m w/ PMH ETOH abuse and chronic low back pain who was BIBEMS c/o lower back pain. Patient was visibly intoxicated on arrival. Imaging and workup deferred as patient has had extensive workup during multiple recent visits to ED. Will continue to assess patient for sobriety. Patient seen sleeping comfortably. Will continue to reassess. 05/03/17 02:15 -on reassessment, patient is walking and talking without difficulty. -patient states he feels sick and just threw up in the bathroom. -patient mildly tremulous on exam. Will obtain repeat vital signs to assess for withdrawal. 05/03/17 02:45 -will administer 50mg librium and 650 of tylenol; patient states that he now has a headache, is nauseous and feels like he is withdrawing. 05/03/17 06:30 -on reassessment, patient is walking and talking without difficulty. He expresses a desire to go home. Will discharge with close follow up. *DC/Admit/Observation/Transfer Diagnosis at time of Disposition: Alcohol intoxication - Discharge Dispostion Disposition: HOME Condition at time of disposition: Improved Admit: No - Referrals Referrals: Garima Bridges MD [Staff Physician] - - Patient Instructions Printed Discharge Instructions: DI for Alcohol Abuse Additional Instructions: Please return to the ER if you experience concerning or worsening symptoms including worsening pain, chest pain, vomiting, or difficulty breathing. You were seen in the ER for alcohol intoxication. We recommend that you attempt to reduce your alcohol intake. Please call to schedule a follow up appointment with a primary care provider to discuss your ER visit. - Post Discharge Activity
--- NOTE | 2017-05-03 01:34 | PDOC ---
Attending Attestation - Resident Resident Name: Smith Dunbar - HPI HPI: 05/03/17 01:14 Pt presents to the ED intoxicated without signs or history of trauma. Patient is a frequent visitor to the ED and is very well known to me. - Physicial Exam PE: 05/03/17 01:17 agree with resident exam. patient is intoxicated but is moving all extremities and is alert and oriented x 3. - Medical Decision Making 05/03/17 01:18 Pt presents to the ED intoxicated without signs or history of trauma. Will hold for sobriety.
[2017-05-03] MEDS ORDERED: ACETAMINOPHEN 325 MG TABLET (FP) PO ONE (02:33)
[2017-05-03] MEDS ORDERED: chlordiazePOXIDE HCL 25 MG CAPSULE PO ONE (02:33)
[2017-05-03 06:38] VITALS: BP 124/60; PULSE 88; TEMP 98
== END 2017-05-03 06:38 | disposition home or self-care (01) ==
LOC: JER 17:31
DX: F10.220 Alcohol dependence with intoxication, uncomplicated (principal); I10 Essential (primary) hypertension; C45.9 Mesothelioma, unspecified; Z59.0 Homelessness
CPT/HCPCS: 99284-25

== ENCOUNTER 2017-05-03 15:31 | Emergency (ER) | payer OTHER ==
[2017-05-03 15:47] VITALS: BP 116/72; PULSE 90; TEMP 98.7; BMI 35.9
--- NOTE | 2017-05-03 16:08 | PDOC ---
*Physical Exam - Vital Signs Last Vital Signs Temp Pulse Resp BP Pulse Ox 98.7 F 90 18 116/72 95 05/03/17 15:32 05/03/17 15:32 05/03/17 15:32 05/03/17 15:32 05/03/17 15:32 Medical Decision Making - Medical Decision Making 05/03/17 16:08 Pt seen by the Advanced Practice Provider under my direct supervision Ancillary studies reviewed I agree with plan as outlined by the Advanced Practice Provider MICHAEL Colunga *DC/Admit/Observation/Transfer Diagnosis at time of Disposition: Alcohol dependence with uncomplicated intoxication - Discharge Dispostion Disposition: HOME Condition at time of disposition: Good - Referrals - Patient Instructions Printed Discharge Instructions: DI for Alcohol Abuse Additional Instructions: please go to your [facility] tonight and utilize resources within the community - Post Discharge Activity
--- NOTE | 2017-05-03 16:31 | PDOC ---
History of Present Illness - General Chief Complaint: Alcohol intoxication Stated Complaint: INTOX Time Seen by Provider: 05/03/17 15:40 History Source: Patient Exam Limitations: No Limitations - History of Present Illness Initial Comments: 05/03/17 16:31 62-year-old male with history of Alcohol abuse was brought in by EMS secondary [place] Patient states was sleeping on the floor and states he did not fall. Patient arrives intoxicated with no complaints presently. Timing/Duration: unsure Severity: mild Associated Symptoms: reports: denies symptoms Past History - Travel Traveled outside of the country in the last 30 days: No Close contact w/someone who was outside of country & ill: No - Past Medical History Allergies/Adverse Reactions: Allergies Allergy/AdvReac Type Severity Reaction Status Date / Time Fish Containing Products Allergy Mild Verified 05/03/17 15:32 No Known Drug Allergies Allergy Verified 05/03/17 15:32 Home Medications: Ambulatory Orders NK [No Known Home Medication] 04/03/17 Anemia: No Asthma: No Cancer: Yes (mesothelioma) Cardiac Disorders: No CVA: No COPD: No CHF: No DVT: No Dementia: No Diabetes: No GI Disorders: No Disorders: No HTN: Yes Hypercholesterolemia: No Kidney Stones: No Liver Disease: No Psychiatric Problems: Yes (alcoholism) Seizures: No Thyroid Disease: No - Surgical History Abdominal Surgery: No Appendectomy: No Cardiac Surgery: No Cholecystectomy: No Lung Surgery: No Neurologic Surgery: No Orthopedic Surgery: No - Family Disease History Family Disease History: CA: Mother - Reproductive History Testicular Surgery: No - Immunization History TDAP Vaccination: Yes Immunization Up to Date: Yes - Suicide/Smoking/Psychosocial Hx Smoking Status: No Smoking History: Never smoked Have you smoked in the past 12 months: No Number of Cigarettes Smoked Daily: 0 Cigars Per Day: 0 Information on smoking cessation initiated: No 'Breaking Loose' booklet given: 11/02/16 Hx Alcohol Use: No Drug/Substance Use Hx: No Substance Use Type: Alcohol Hx Substance Use Treatment: Yes Patient Lives Alone: Yes Lives with/in: lives alone Review of Systems - Review of Systems Able to Perform ROS?: Yes Constitutional: No: Symptoms Reported HEENTM: No: Symptoms Reported Respiratory: No: Symptoms reported Cardiac (ROS): No: Symptoms Reported ABD/GI: No: Symptoms Reported : No: Symptoms Reported Musculoskeletal: No: Symptoms Reported Integumentary: No: Symptoms Reported Neurological: No: Symptoms reported *Physical Exam - Vital Signs Last Vital Signs Temp Pulse Resp BP Pulse Ox 98.7 F 90 18 116/72 95 05/03/17 15:32 05/03/17 15:32 05/03/17 15:32 05/03/17 15:32 05/03/17 15:32 - Physical Exam General Appearance: Yes: Nourished, Disheveled, Alcohol on Breath, Intoxicated. No: Apparent Distress HEENT: positive: EOMI Neck: positive: Supple. negative: Tender, Decreased range of motion Respiratory/Chest: positive: Lungs Clear, Normal Breath Sounds. negative: Respiratory Distress, Accessory Muscle Use Cardiovascular: positive: Regular Rhythm, Regular Rate. negative: Murmur Extremity: negative: Pedal Edema Integumentary: positive: Dry, Warm Neurologic: positive: Normal Mood/Affect, Motor Strength 5/5 Medical Decision Making - Medical Decision Making 05/03/17 15:51 Patient brought in for public intoxication. Patient is asymptomatic presently. Vital signs stable. Will observe. Patient requesting a food tray. 05/03/17 18:50 Ate dinner tray and called for a taxi. He is requesting to leave. Pt ambulatory to the restroom. *DC/Admit/Observation/Transfer Diagnosis at time of Disposition: Alcohol dependence with uncomplicated intoxication - Discharge Dispostion Disposition: HOME Condition at time of disposition: Good - Referrals - Patient Instructions Printed Discharge Instructions: DI for Alcohol Abuse Additional Instructions: please go to your prison tonight and utilize resources within the community - Post Discharge Activity
== END 2017-05-03 18:56 | disposition home or self-care (01) ==
LOC: JER 15:31
DX: F10.220 Alcohol dependence with intoxication, uncomplicated (principal); I10 Essential (primary) hypertension; C45.9 Mesothelioma, unspecified; Z59.0 Homelessness
CPT/HCPCS: 99283-25

== ENCOUNTER 2017-05-07 11:29 | Emergency (ER) | payer OTHER ==
--- NOTE | 2017-05-07 12:05 | PDOC ---
History of Present Illness - General Chief Complaint: Back Pain Stated Complaint: BACK PAIN Time Seen by Provider: 05/07/17 11:37 History Source: Patient Exam Limitations: Intoxication - History of Present Illness Initial Comments: 62 yo M hx EtOH abuse, well known to this ED presents with EtOH intoxication. Denies any trauma. Brought in by EMS. No complaints at present, requesting a tray of food on arrival. Past History - Past Medical History Allergies/Adverse Reactions: Allergies Allergy/AdvReac Type Severity Reaction Status Date / Time Fish Containing Products Allergy Mild Verified 05/03/17 15:32 No Known Drug Allergies Allergy Verified 05/03/17 15:32 Home Medications: Ambulatory Orders NK [No Known Home Medication] 04/03/17 Anemia: No Asthma: No Cancer: Yes (mesothelioma) Cardiac Disorders: No CVA: No COPD: No CHF: No DVT: No Dementia: No Diabetes: No GI Disorders: No Disorders: No HTN: Yes Hypercholesterolemia: No Kidney Stones: No Liver Disease: No Psychiatric Problems: Yes (alcoholism) Seizures: No Thyroid Disease: No - Surgical History Abdominal Surgery: No Appendectomy: No Cardiac Surgery: No Cholecystectomy: No Lung Surgery: No Neurologic Surgery: No Orthopedic Surgery: No - Family Disease History Family Disease History: CA: Mother - Reproductive History Testicular Surgery: No - Immunization History TDAP Vaccination: Yes Immunization Up to Date: Yes - Suicide/Smoking/Psychosocial Hx Smoking Status: No Smoking History: Never smoked Have you smoked in the past 12 months: No Number of Cigarettes Smoked Daily: 0 Cigars Per Day: 0 'Breaking Loose' booklet given: 11/02/16 Hx Alcohol Use: No Drug/Substance Use Hx: No Substance Use Type: Alcohol Hx Substance Use Treatment: Yes Review of Systems - Review of Systems Able to Perform ROS?: No *Physical Exam - Physical Exam Comments: GENERAL: Awake, alert, and oriented to person and place, in no acute distress HEAD: No signs of trauma EYES: PERRLA, EOMI, sclera anicteric, conjunctiva clear ENT: Auricles normal inspection, hearing grossly normal, nares patent, oropharynx clear without exudates. Moist mucosa NECK: Normal ROM, supple, no lymphadenopathy, JVD, or masses LUNGS: Breath sounds equal, clear to auscultation bilaterally. No wheezes, and no crackles HEART: Regular rate and rhythm, normal S1 and S2, no murmurs, rubs or gallops ABDOMEN: Soft, nontender, normoactive bowel sounds. No guarding, no rebound. No masses EXTREMITIES: Normal range of motion, no edema. No clubbing or cyanosis. No cords, erythema, or tenderness NEUROLOGICAL: Cranial nerves II through XII grossly intact. Slurred speech. Motor and sensation intact. Gait not tested due to intoxication. SKIN: Warm, Dry, normal turgor, no rashes or lesions noted. Medical Decision Making - Medical Decision Making 05/07/17 16:18 Pt with stable gait. Ambulated in ED, then went back to sleep. 05/07/17 18:33 Sleeping comfortably. 05/07/17 19:08 Ambulatory, stable for DC home. *DC/Admit/Observation/Transfer Diagnosis at time of Disposition: Intoxication - Discharge Dispostion Disposition: HOME Condition at time of disposition: Improved Admit: No - Referrals - Patient Instructions Printed Discharge Instructions: DI for Alcohol Abuse - Post Discharge Activity
[2017-05-07 12:12] VITALS: BP 131/78; PULSE 78; TEMP 98.1; BMI 29.8
== END 2017-05-07 19:15 | disposition home or self-care (01) ==
LOC: JER 11:29
DX: F10.220 Alcohol dependence with intoxication, uncomplicated (principal); I10 Essential (primary) hypertension; C45.9 Mesothelioma, unspecified; Z59.0 Homelessness
CPT/HCPCS: 99281-25

== ENCOUNTER 2017-05-11 17:32 | Observation (INO) | payer OTHER ==
[2017-05-11 18:58] VITALS: BMI 35.9
--- NOTE | 2017-05-11 19:39 | PDOC ---
History of Present Illness <Fabiana Woodard - Last Filed: 05/11/17 19:50> - General History Source: Patient Exam Limitations: Intoxication - History of Present Illness Initial Comments: 05/11/17 19:57 The patient is a 62 year old male who is well known to the ED with a significant PMH of HTN, alcohol abuse, and mesothelioma who presents to the emergency department via EMS with alcohol intoxication. The patient denies any other complaints. Allergies: NKDA Past surgical history: None reported. Social history: Everyday alcohol abuse. No reported cigarette or drug use. PCP: Dr. Geremias Bridges <Nitish Bonilla - Last Filed: 05/11/17 19:58> - General Chief Complaint: Alcohol intoxication Stated Complaint: INTOX Time Seen by Provider: 05/11/17 19:26 Past History - Past Medical History Anemia: No Asthma: No Cancer: Yes (mesothelioma) Cardiac Disorders: No CVA: No COPD: No CHF: No DVT: No Dementia: No Diabetes: No GI Disorders: No Disorders: No HTN: Yes Hypercholesterolemia: No Kidney Stones: No Liver Disease: No Psychiatric Problems: Yes (alcoholism) Seizures: No Thyroid Disease: No - Surgical History Abdominal Surgery: No Appendectomy: No Cardiac Surgery: No Cholecystectomy: No Lung Surgery: No Neurologic Surgery: No Orthopedic Surgery: No - Family Disease History Family Disease History: CA: Mother - Reproductive History Testicular Surgery: No - Immunization History TDAP Vaccination: Yes Immunization Up to Date: Yes - Suicide/Smoking/Psychosocial Hx Smoking Status: No Smoking History: Never smoked Have you smoked in the past 12 months: No Number of Cigarettes Smoked Daily: 0 Cigars Per Day: 0 'Breaking Loose' booklet given: 11/02/16 Hx Alcohol Use: Yes Drug/Substance Use Hx: No Substance Use Type: Alcohol Hx Substance Use Treatment: Yes <Fabiana Woodard - Last Filed: 05/11/17 19:50> <Nitish Bonilla - Last Filed: 05/11/17 19:58> - Past Medical History Allergies/Adverse Reactions: Allergies Allergy/AdvReac Type Severity Reaction Status Date / Time Fish Containing Products Allergy Mild Verified 05/03/17 15:32 No Known Drug Allergies Allergy Verified 05/03/17 15:32 Home Medications: Ambulatory Orders NK [No Known Home Medication] 04/03/17 Review of Systems - Review of Systems Able to Perform ROS?: No (intoxicated) <Fabiana Woodard - Last Filed: 05/11/17 19:50> *Physical Exam - Vital Signs Last Vital Signs Temp Pulse Resp BP Pulse Ox 98.3 F 92 H 20 98/61 94 L 05/11/17 17:45 05/11/17 17:45 05/11/17 17:45 05/11/17 17:45 05/11/17 17:45 - Physical Exam Comments: GENERAL: Awake, alert, and oriented to person and place, in no acute distress. Poor hygiene. HEAD: No signs of trauma EYES: PERRLA, EOMI, sclera anicteric, conjunctiva clear ENT: Auricles normal inspection, hearing grossly normal, nares patent, oropharynx clear without exudates. Moist mucosa NECK: Normal ROM, supple, no lymphadenopathy, JVD, or masses LUNGS: Breath sounds equal, clear to auscultation bilaterally. No wheezes, and no crackles HEART: Regular rate and rhythm, normal S1 and S2, no murmurs, rubs or gallops ABDOMEN: Soft, nontender, normoactive bowel sounds. No guarding, no rebound. No masses EXTREMITIES: Normal range of motion, no edema. No clubbing or cyanosis. No cords, erythema, or tenderness NEUROLOGICAL: Cranial nerves II through XII grossly intact. Slurred speech. Motor and sensation intact. SKIN: Warm, Dry, normal turgor, no rashes or lesions noted. <Fabiana Woodard - Last Filed: 05/11/17 19:50> - Vital Signs Last Vital Signs Temp Pulse Resp BP Pulse Ox 98.3 F 92 H 20 98/61 94 L 05/11/17 17:45 05/11/17 17:45 05/11/17 17:45 05/11/17 17:45 05/11/17 17:45 <Nitish Bonilla - Last Filed: 05/11/17 19:58> *DC/Admit/Observation/Transfer - Discharge Dispostion Admit: No <Fabiana Woodard - Last Filed: 05/11/17 19:50> - Attestations Scribe Attestion: 05/11/17 19:58 Documentation prepared by Nitish Bonilla, acting as medical billing representative for Fabiana Woodard MD. <Nitish Bonilla - Last Filed: 05/11/17 19:58> Diagnosis at time of Disposition: Intoxication, Alcohol dependence with uncomplicated intoxication - Referrals Referrals: Garima Bridges MD [Primary Care Provider] - - Patient Instructions - Post Discharge Activity
--- NOTE | 2017-05-12 07:50 | PDOC ---
*Physical Exam - Vital Signs Last Vital Signs Temp Pulse Resp BP Pulse Ox 98.3 F 78 18 140/89 99 05/11/17 17:45 05/12/17 06:45 05/12/17 02:46 05/12/17 06:45 05/12/17 06:45 - Physical Exam Comments: 05/12/17 07:50 Vital signs normal GENERAL: The patient is awake, alert, and oriented, no longer intoxicated. L arm pain with any positional changes. HEAD: Normal with no signs of trauma. EYES: PERRL, EOMI, sclera anicteric, conjunctiva clear with no pallor. ENT: oropharynx clear without exudates. Moist mucous membranes. NECK: Normal range of motion, supple without lymphadenopathy, JVD, or masses. LUNGS: Breath sounds equal, clear to auscultation bilaterally. No wheeze/ crackles. HEART: Regular rate and rhythm, normal S1 and S2 without murmur or rub. ABDOMEN: Soft/nontender/nondistended. BS wnl. No guarding or rebound. No palpable masses. No hepatosplenomegaly. EXTREMITIES: Normal range of motion, no edema. 2+ distal pulses. No cords, erythema, or tenderness. NEURO: Mental status: The patient is alert and oriented x3. Cranial nerves: Cranial nerves II through XII are intact Motor: The upper extremities are 5 over 5 in all muscle groups (chronic L shoulder pain 2/2 old fracture). The lower extremities are 5 over 5 in all muscle groups. No pronator drift. Sensation: Sensation is intact to light touch throughout. Cerebellar: Poblxg-waopwm-syin is normal in both upper extremities. Heel-knee- falk is normal in both lower extremities. Reflexes: 2+ and symmetric in the upper and lower extremities. Gait: Baseline/Normal. Tandem gait is normal. PSYCH: Normal mood, normal affect. SKIN: 2cm superficial ecchymosis L low back, no underlying hematoma or bone/ pelvis ttp Heart Score/ECG Review #1 ECG reviewed & interpreted by me at: 07:57 General ECG Interpretation: Sinus Rhythm, Normal Rate (91), Normal Intervals ( qtc 464), No acute ischemic changes (T wave flattening V4-V6) Compared to previous ECG there are: Changes noted (multiple prior EKGs, 01/01/17 showed similar T wave changes, but normal since then.) ED Treatment Course - LABORATORY CBC & Chemistry Diagram: 05/12/17 07:41 05/12/17 07:41 - RADIOLOGY Radiology Studies Ordered: Category Date Time Status CHEST PA & LAT [RAD] Stat Radiology 05/12/17 07:33 Ordered Medical Decision Making - Medical Decision Making 05/12/17 07:53 Received signout on this 62-year-old male well-known to this department and institution with history of chronic alcoholism and multiple other medical problems who presented in his usual fashion intoxicated and slipped here during the night, awoke this morning and complained of left shoulder pain but also left upper extremity and left lower extremity numbness without weakness. Unable to recall when his symptoms began, no history of similar complaints, reports his left shoulder pain is residual from his prior humeral fracture, denied any associated chest pain or difficulty breathing. He is ambulatory without difficulty or leg weakness, denies any headache, does not recall if he had any recent falls. Complaint this morning was of chest pain to the overnight clinical staff, a cardiac workup was ordered and I added EKG and chest x-ray. After further discussion, question whether this is sensory deficit or lacunar infarct with left-sided numbness, but no objective findings on exam and NIH is 0 and onset time is also unknown. He is not a TPA candidate, but qualifies for imaging given his risk factors. Overall low suspicion for true ACS or CVA despite risk factors, sxs appear more musculoskeletal 2/2 chronic L humeral fracture, positional in nature without neuro deficit. Does have nonspecific t wave changes that have appeared in the past. Stroke protocol initiated, chest pain protocol initiated. Given complaint of sensory deficit and left shoulder pain/atypical chest pain, will place on observation for further lab and CT testing and evaluation. 05/12/17 10:26 labs wnl, trop negative, K 3.3. ct without acute pathology. pt unchanged, given librium for withdrawal prevention. Accepted for obs tele placement by Dr. Flores, signout given to MICHAEL Rutherford, covering Dr. Torsten Bridges. Given asa for cp/? tia. *DC/Admit/Observation/Transfer Diagnosis at time of Disposition: Intoxication, Alcohol dependence with uncomplicated intoxication, Numbness and tingling of left arm and leg Chest pain Qualifiers: Chest pain type: other chest pain Qualified Code(s): R07.89 - Other chest pain ; R07.8 - Other chest pain - Discharge Dispostion Condition at time of disposition: Fair Admit: Yes - Referrals Referrals: Garima Bridges MD [Primary Care Provider] - - Patient Instructions Printed Discharge Instructions: DI for Alcohol Abuse - Post Discharge Activity NIH Stroke Scale - Last Known Well Date/Time & Onset Date Last Known Well: 05/12/17 Time Last Known Well: 01:00 - Initial Evaluation Level of consciousness: Alert Ask patient the month and their age: Answers both correctly Ask patient to open & close eyes; make fist and let go: Obeys both correctly Best gaze (horizontal eye movement): Normal Visual field testing: No visual field loss Facial paresis (Show teeth/raise eyebrows/close eyes tight): Normal symmetrical movement Motor Function: Left Arm: Normal Motor Function: Right Arm: Normal (extends arm 90 (or 45) degrees for 10 seconds without drift Motor Function: Left Leg: Normal (extends leg 30 degrees for 5 seconds without drift) Motor Function: Right Leg: Normal (extends leg 30 degrees for 5 seconds without drift) Limb Ataxia: No ataxia Sensory(Use pinprick test arms,legs,trunk,face/side to side): Normal Best language (Describe picture, name items, read sentences): No Aphasia Dysarthria (read several words): Normal articulation Extinction and Inattention: No abnormality - Total Score NIH Stroke Scale Score: 0 tPA Exclusion checklist 3-4.5h - Relative Exclusion Criteria 3-4.5 hr Stroke severity too mild: Yes
[2017-05-12 08:15] LABS: BASOPHIL 0.7 % (0-2.0); EOSINOPHIL 1.9 % (0-4.5); MCHC 32.5 g/dl (32.0-35.9); MEAN CELL VOLUME 92.4 fl (80-96); MEAN PLT VOLUME 7.7 fl (7.5-11.1); NEUTROPHILS 69.7 % (42.8-82.8); PLATELET COUNT 200 K/MM3 (134-434); RDW 18.6 % (11.9-15.9); WHITE BLOOD COUNT 5.9 K/mm3 (4.0-10.0)
[2017-05-12] MEDS ORDERED: SODIUM CHLORIDE 1,000 ML IV SCH (08:15)
[2017-05-12 08:37] LABS: ALBUMIN 3.1 g/dl (3.4-5.0); ANION GAP 11 (8-16); BILIRUBIN,TOTAL 1.2 mg/dL (0.2-1.0); CALCIUM 8.3 mg/dL (8.5-10.1); CO2 28 mmol/L (21-32); CPK 198 IU/L (39-308); CREATININE 0.6 mg/dL (0.7-1.3); GLUCOSE,RANDOM 83 mg/dL (74-106); SGOT/AST 39 U/L (15-37); SGPT/ALT 23 U/L (12-78); TOT PROT 6.5 g/dl (6.4-8.2)
[2017-05-12 08:39] LABS: ALK PHOS 129 U/L (45-117); TROPONIN I < 0.02 ng/ml (0.00-0.05)
[2017-05-12 09:50] LABS: CHOLESTEROL 179 mg/dL (50-200)
[2017-05-12 10:17] LABS: INR 1.1 (0.82-1.09); PROTHROMBIN TIME (PATIENT) 12.4 SEC (9.98-11.88)
[2017-05-12] MEDS ORDERED: chlordiazePOXIDE HCL 25 MG CAPSULE PO ONE (10:24)
--- NOTE | 2017-05-12 10:27 | EKG ---
Test Reason : Blood Pressure : / mmHG Vent. Rate : 091 BPM Atrial Rate : 091 BPM P-R Int : 154 ms QRS Dur : 088 ms QT Int : 378 ms P-R-T Axes : 036 -24 -21 degrees QTc Int : 464 ms POOR DATA QUALITY, INTERPRETATION MAY BE ADVERSELY AFFECTED NORMAL SINUS RHYTHM NONSPECIFIC ST AND T WAVE ABNORMALITY ABNORMAL ECG WHEN COMPARED WITH ECG OF 27-MAR-2017 17:17, NONSPECIFIC T WAVE ABNORMALITY, WORSE IN INFERIOR LEADS T WAVE INVERSION NOW EVIDENT IN ANTERIOR LEADS Confirmed by PALMER RICHMOND, YONATAN ([id number]) on 05/12/2017 10:27:41 AM Referred By: Confirmed By:YONATAN CHAKRABORTY MD
[2017-05-12] MEDS ORDERED: ASPIRIN 81 MG CHEWABLE TABLETS PO ONE (10:29)
--- NOTE | 2017-05-12 10:31 | HP ---
62 year-old male with a PMH significant for severe alcohol abuse. Today is the patient's 145th ED visit this year. Patient complained of chest pain and left sided weakness and paresthesia this morning while in the ED. ER course was notable for: (1) CT head: No acute process (2) CXR: unremarkable (3) Admitted to observation status for further cardiac and neuro workup including serial troponins, cardiac monitoring, and MRI brain 10:39am (4) Seen by this provider in the ED; patient stated he wanted to leave AMA; patient advised he risked heart attack, stroke, ; patient insisted on signing out AMA; found to be A&Ox3 and competent to make decisions on his own behalf (5) Left AMA 12:45pm Visit type - Emergency Visit Emergency Visit: Yes ED Registration Date: 05/12/17 Care time: The patient presented to the Emergency Department on the above date and was hospitalized for further evaluation of their emergent condition. - New Patient This patient is new to me today: Yes Date on this admission: 05/12/17 - Critical Care Critical Care patient: No
[2017-05-12 11:00] VITALS: BP 136/76; PULSE 77; TEMP 98
[2017-05-12] MEDS ORDERED: ASPIRIN 81 MG CHEWABLE TABLETS ONE (11:02)
[2017-05-12] MEDS ORDERED: chlordiazePOXIDE HCL 25 MG CAPSULE ONE (11:02)
--- NOTE | 2017-05-12 13:04 | DS ---
Physical Exam: 62 year-old male with a PMH significant for severe alcohol abuse. Today is the patient's 145th ED visit this year. Patient complained of chest pain and left sided weakness and paresthesia this morning while in the ED. ER course was notable for: (1) CT head: No acute process (2) CXR: unremarkable (3) Admitted to observation status for further cardiac and neuro workup including serial troponins, cardiac monitoring, and MRI brain 10:39am (4) Seen by this provider in the ED; patient stated he wanted to leave AMA; patient advised he risked heart attack, stroke, ; patient insisted on signing out AMA; found to be A&Ox3 and competent to make decisions on his own behalf (5) Left AMA 12:45pm Minutes to complete discharge: 35 Discharge Summary Reason For Visit: ATYPICAL CHEST PAIN,NUMBNESS,TINGLING LFT L EXTREM Condition: Guarded - Instructions Referrals: Garima Bridges MD [Primary Care Provider] - Disposition: AGAINST MEDICAL ADVICE - Home Medications Comprehensive Discharge Medication List: Ambulatory Orders NK [No Known Home Medication] 04/03/17 This patient is new to me today: Yes Date on this admission: 05/12/17 Emergency Visit: Yes ED Registration Date: 05/12/17 Care time: The patient presented to the Emergency Department on the above date and was hospitalized for further evaluation of their emergent condition. Critical Care patient: No - Discharge Referral Referred to [facility] No
--- NOTE | 2017-05-12 15:42 | PN ---
[facility] Progress Note Note: as per chart patient left AMA, cancelled consult
--- NOTE | 2017-05-13 08:31 | CONSULT ---
Consult Detox [facility] - Alcohol/Substance Use Hx Alcohol Use: Yes - Past Medical History Cardio/Vascular: Yes: HTN Pulmonary: Yes: Other (Mesothelioma) Psych: Yes: Addictions Musculoskeletal: Yes: Chronic low back pain - Past Surgical History Past Surgical History: Yes: None
== END 2017-05-12 12:45 | disposition left against medical advice (07) ==
LOC: JER 17:32 → JERBED 05-12 10:28
PROVIDERS: ADMIT Internal Medicine; ATTEND Internal Medicine
PROC: 3E0337Z Introduction of Electrolytic and Water Balance Substance into Peripheral Vein, Percutaneous Approach (ICD-10-PCS; principal; 2017-05-12)
DX: R07.89 Other chest pain (principal); R20.2 Paresthesia of skin; R53.1 Weakness; F10.220 Alcohol dependence with intoxication, uncomplicated; I10 Essential (primary) hypertension; C45.9 Mesothelioma, unspecified; Z59.0 Homelessness
CPT/HCPCS: 36415; 70450-TC; 71020-TC; 80053; 80061; 82550; 82553; 83721; 84484; 85025; 85610; 86850; 86900; 86901; 93005; 93010; 99285-25; G0378

== ENCOUNTER 2017-05-14 17:49 | Emergency (ER) | payer OTHER ==
--- NOTE | 2017-05-14 18:29 | PDOC ---
History of Present Illness - General Stated Complaint: Alcohol intoxication Time Seen by Provider: 05/14/17 18:03 - History of Present Illness Initial Comments: 05/14/17 18:27 62 M with h/o HTN, mesothelioma, ETOH abuse, BIBEMS for ETOH intoxication. Pt admits to several drinks today. Denies any trauma. Denies any acute complaints. Past History - Past Medical History Allergies/Adverse Reactions: Allergies Allergy/AdvReac Type Severity Reaction Status Date / Time Fish Containing Products Allergy Mild Verified 05/03/17 15:32 No Known Drug Allergies Allergy Verified 05/03/17 15:32 Home Medications: Ambulatory Orders NK [No Known Home Medication] 04/03/17 Anemia: No Asthma: No Cancer: Yes (mesothelioma) Cardiac Disorders: No CVA: No COPD: No CHF: No DVT: No Dementia: No Diabetes: No GI Disorders: No Disorders: No HTN: Yes Hypercholesterolemia: No Kidney Stones: No Liver Disease: No Psychiatric Problems: Yes (alcoholism) Seizures: No Thyroid Disease: No - Surgical History Abdominal Surgery: No Appendectomy: No Cardiac Surgery: No Cholecystectomy: No Lung Surgery: No Neurologic Surgery: No Orthopedic Surgery: No - Family Disease History Family Disease History: CA: Mother - Reproductive History Testicular Surgery: No - Immunization History TDAP Vaccination: Yes Immunization Up to Date: Yes - Suicide/Smoking/Psychosocial Hx Smoking Status: No Smoking History: Never smoked Have you smoked in the past 12 months: No Number of Cigarettes Smoked Daily: 0 Cigars Per Day: 0 'Breaking Loose' booklet given: 11/02/16 Hx Alcohol Use: Yes Drug/Substance Use Hx: No Substance Use Type: Alcohol Hx Substance Use Treatment: Yes Review of Systems - Review of Systems Comments:: 05/14/17 18:28 "GENERAL/CONSTITUTIONAL: No fever or chills. No weakness. HEAD, EYES, EARS, NOSE AND THROAT: No change in vision. No ear pain or discharge. No sore throat. CARDIOVASCULAR: No chest pain or shortness of breath. RESPIRATORY: No cough, wheezing, or hemoptysis. GASTROINTESTINAL: No nausea, vomiting, diarrhea or constipation. GENITOURINARY: No dysuria, frequency, or change in urination. MUSCULOSKELETAL: No joint or muscle swelling or pain. No neck or back pain. SKIN: No rash NEUROLOGIC: No headache, vertigo, loss of consciousness, or change in strength/ sensation. ENDOCRINE: No increased thirst. No abnormal weight change. HEMATOLOGIC/LYMPHATIC: No anemia, easy bleeding, or history of blood clots. ALLERGIC/IMMUNOLOGIC: No hives or skin allergy. " *Physical Exam - Physical Exam Comments: 05/14/17 18:28 "GENERAL: Awake, alert, and fully oriented, in no acute distress HEAD: No signs of trauma EYES: PERRLA, EOMI, sclera anicteric, conjunctiva clear ENT: Auricles normal inspection, hearing grossly normal, nares patent, oropharynx clear without exudates. Moist mucosa NECK: Nontender, no stepoffs, Normal ROM, supple, no lymphadenopathy, JVD, or masses LUNGS: Breath sounds equal, clear to auscultation bilaterally. No wheezes, and no crackles HEART: Regular rate and rhythm, normal S1 and S2, no murmurs, rubs or gallops ABDOMEN: Soft, nontender, normoactive bowel sounds. No guarding, no rebound. No masses EXTREMITIES: Normal range of motion, no edema. No clubbing or cyanosis. No cords, erythema, or tenderness NEUROLOGICAL: Cranial nerves II through XII intact. 5/5 strength and sensation in all extremities, Normal speech, normal gait SKIN: Warm, Dry, normal turgor, no rashes or lesions noted. " Medical Decision Making - Medical Decision Making 05/14/17 18:28 62 M presenting to ER with ETOH intoxication. No evidence of traumatic injury on exam. - Metabolize in ER - PO challenge 05/14/17 23:39 Pt awake, alert, eating sandwich in ER. Ambulatory with steady gait. Vitals normal. Clinically stable for DC. *DC/Admit/Observation/Transfer Diagnosis at time of Disposition: Intoxication - Discharge Dispostion Disposition: HOME - Referrals Referrals: Garima Bridges MD [Primary Care Provider] - - Patient Instructions Printed Discharge Instructions: DI for Alcohol Abuse - Post Discharge Activity - Attestations Physician Attestion: 05/14/17 23:40 I, Dr. Jamal Rodriges MD, attest that this document has been prepared under my direction and personally reviewed by me in its entirety. I further attest, that it accurately reflects all work, treatment, procedures and medical decision -making performed by me.
[2017-05-14 18:47] VITALS: BP 104/60; PULSE 91; TEMP 98.5; BMI 33.0
[2017-05-15] MEDS ORDERED: chlordiazePOXIDE HCL 25 MG CAPSULE PO ONE (06:10)
[2017-05-15] MEDS ORDERED: chlordiazePOXIDE HCL 25 MG CAPSULE ONE (06:15)
== END 2017-05-15 06:23 | disposition home or self-care (01) ==
LOC: JER 17:49
DX: F10.220 Alcohol dependence with intoxication, uncomplicated (principal); I10 Essential (primary) hypertension; C45.9 Mesothelioma, unspecified; Z59.0 Homelessness
CPT/HCPCS: 99282-25

== ENCOUNTER 2017-05-15 11:15 | Emergency (ER) | payer OTHER | END 2017-05-15 11:35 | disposition left against medical advice (07) | LOC: JER 11:15 | DX: Z53.21 Procedure and treatment not carried out due to patient leaving prior to being seen by health care provider (principal) | CPT/HCPCS: 99281-25 ==

== ENCOUNTER 2017-05-16 11:16 | Emergency (ER) | payer OTHER ==
--- NOTE | 2017-05-16 11:27 | PDOC ---
History of Present Illness - General Stated Complaint: FALL Time Seen by Provider: 05/16/17 11:27 Past History - Past Medical History Allergies/Adverse Reactions: Allergies Allergy/AdvReac Type Severity Reaction Status Date / Time Fish Containing Products Allergy Mild Verified 05/15/17 11:28 No Known Drug Allergies Allergy Verified 05/15/17 11:28 Home Medications: Ambulatory Orders NK [No Known Home Medication] 04/03/17 Anemia: No Asthma: No Cancer: Yes (mesothelioma) Cardiac Disorders: No CVA: No COPD: No CHF: No DVT: No Dementia: No Diabetes: No GI Disorders: No Disorders: No HTN: Yes Hypercholesterolemia: No Kidney Stones: No Liver Disease: No Psychiatric Problems: Yes (alcoholism) Seizures: No Thyroid Disease: No - Surgical History Abdominal Surgery: No Appendectomy: No Cardiac Surgery: No Cholecystectomy: No Lung Surgery: No Neurologic Surgery: No Orthopedic Surgery: No - Family Disease History Family Disease History: CA: Mother - Reproductive History Testicular Surgery: No - Immunization History TDAP Vaccination: Yes Immunization Up to Date: Yes - Suicide/Smoking/Psychosocial Hx Smoking Status: No Smoking History: Never smoked Have you smoked in the past 12 months: No Number of Cigarettes Smoked Daily: 0 Cigars Per Day: 0 'Breaking Loose' booklet given: 11/02/16 Hx Alcohol Use: Yes Drug/Substance Use Hx: No Substance Use Type: Alcohol Hx Substance Use Treatment: Yes
[2017-05-16 11:32] VITALS: BP 132/80; PULSE 72; TEMP 98.2; BMI 35.5
--- NOTE | 2017-05-16 11:58 | PDOC ---
History of Present Illness - General Chief Complaint: Alcohol intoxication Stated Complaint: FALL Time Seen by Provider: 05/16/17 11:27 History Source: Patient Exam Limitations: Intoxication (mild) - History of Present Illness Initial Comments: 05/16/17 11:59 62-year-old male presents to the ED with complaints of left shoulder pain. Patient states is unsure of However he acquired the pain but states he likely fell. Patient states pain is worsened with movement and denies radiation of pain to his left chest, difficulty breathing, headache, neck pain, or dizziness. Timing/Duration: unsure Severity: moderate Associated Symptoms: reports: denies symptoms Past History - Travel Traveled outside of the country in the last 30 days: No - Past Medical History Allergies/Adverse Reactions: Allergies Allergy/AdvReac Type Severity Reaction Status Date / Time Fish Containing Products Allergy Mild Verified 05/16/17 11:32 No Known Drug Allergies Allergy Verified 05/16/17 11:32 Home Medications: Ambulatory Orders NK [No Known Home Medication] 04/03/17 Anemia: No Asthma: No Cancer: Yes (mesothelioma) Cardiac Disorders: No CVA: No COPD: No CHF: No DVT: No Dementia: No Diabetes: No GI Disorders: No Disorders: No HTN: Yes Hypercholesterolemia: No Kidney Stones: No Liver Disease: No Psychiatric Problems: Yes (alcoholism) Seizures: No Thyroid Disease: No - Surgical History Abdominal Surgery: No Appendectomy: No Cardiac Surgery: No Cholecystectomy: No Lung Surgery: No Neurologic Surgery: No Orthopedic Surgery: No - Family Disease History Family Disease History: CA: Mother - Reproductive History Testicular Surgery: No - Immunization History TDAP Vaccination: Yes Immunization Up to Date: Yes - Suicide/Smoking/Psychosocial Hx Smoking Status: No Smoking History: Never smoked Have you smoked in the past 12 months: No Number of Cigarettes Smoked Daily: 0 Cigars Per Day: 0 'Breaking Loose' booklet given: 11/02/16 Hx Alcohol Use: Yes Drug/Substance Use Hx: No Substance Use Type: Alcohol Hx Substance Use Treatment: Yes Patient Lives Alone: Yes Lives with/in: lives alone Review of Systems - Review of Systems Able to Perform ROS?: Yes Constitutional: No: Symptoms Reported HEENTM: No: Symptoms Reported Respiratory: No: Symptoms reported Cardiac (ROS): No: Symptoms Reported ABD/GI: No: Symptoms Reported Musculoskeletal: Yes: Joint Pain (left shoulder) Integumentary: Yes: Bruising, Lumps Neurological: No: Symptoms reported *Physical Exam - Vital Signs Last Vital Signs Temp Pulse Resp BP Pulse Ox 98.2 F 72 20 132/80 98 05/16/17 11:29 05/16/17 11:29 05/16/17 11:29 05/16/17 11:29 05/16/17 11:29 - Physical Exam General Appearance: Yes: Nourished, Appropriately Dressed. No: Apparent Distress HEENT: positive: EOMI, DOUGLAS Neck: positive: Supple. negative: Tender, Decreased range of motion Respiratory/Chest: positive: Lungs Clear, Normal Breath Sounds. negative: Chest Tender, Respiratory Distress, Accessory Muscle Use Cardiovascular: positive: Regular Rhythm, Regular Rate. negative: Murmur Gastrointestinal/Abdominal: positive: Soft. negative: Tenderness Musculoskeletal: negative: CVA Tenderness, Decreased Range of Motion, Vertebral Tenderness Extremity: positive: Normal Capillary Refill. negative: Normal Range of Motion (unable to perform lateral raise to front arm raise) Integumentary: positive: Swelling (generalized over left shoulder. Palpable abnormal bony prominence oveer the distal aspect of lt clavicle. No crepitus. + tenderness), Ecchymosis Neurologic: positive: Normal Mood/Affect, Motor Strength 5/5 (ambulatory) ED Treatment Course - RADIOLOGY Radiology Studies Ordered: Category Date Time Status CLAVICLE-LEFT SIDE [RAD] Stat Radiology 05/16/17 11:47 Ordered SHOULDER-LEFT [RAD] Stat Radiology 05/16/17 11:47 Ordered Medical Decision Making - Medical Decision Making 05/16/17 12:37 Patient with left shoulder pain which he states is likely due to a fall since he is frequently intoxicated. Patient concerning for fracture based on exam and ordered shoulder and clavicle x-ray. Patient also ordered for her head and cervical CT secondary to possible head injury. 05/16/17 13:30 X-ray of the clavicle shows an acute distal left clavicular fracture with some AC separation. Old healed fracture deformity of the left humeral shaft. Patient unable to be located after refusing his head and cervical CT. I have checked the waiting area, ER ramp and bathrooms. Patient will be considered an elopement. *DC/Admit/Observation/Transfer Diagnosis at time of Disposition: Closed left clavicular fracture Qualifiers: Encounter type: initial encounter Clavicle location: lateral end - Discharge Dispostion Disposition: ELOPED Condition at time of disposition: Unchanged/Unknown - Referrals - Patient Instructions - Post Discharge Activity
== END 2017-05-16 13:34 | disposition left against medical advice (07) ==
LOC: JER 11:16
DX: S42.035A Nondisplaced fracture of lateral end of left clavicle, initial encounter for closed fracture (principal); W19.XXXA Unspecified fall, initial encounter; Y93.89 Activity, other specified; Y92.89 Other specified places as the place of occurrence of the external cause; Y99.8 Other external cause status; F10.20 Alcohol dependence, uncomplicated; I10 Essential (primary) hypertension; C45.9 Mesothelioma, unspecified; Z59.0 Homelessness
CPT/HCPCS: 73000-TC-LT; 73030-TC-LT; 99281-25

== ENCOUNTER 2017-05-17 15:33 | Emergency (ER) | payer OTHER ==
[2017-05-17 15:54] VITALS: BMI 33.0
--- NOTE | 2017-05-17 16:34 | PDOC ---
History of Present Illness <Jacob Bertrand - Last Filed: 05/17/17 16:33> - General History Source: Patient Exam Limitations: Intoxication - History of Present Illness Initial Comments: 05/17/17 16:39 The patient is a 68 year old male, with a significant past medical history of, scabies,EtOH abuse, suicidal, who presents to the emergency department with c/ os of intoxication. The patient is well known to this ER having multiple past visits. He denies any acute changes since his last ER visit. Patient arrives intoxicated. Allergies: NKA <Sahil Penny - Last Filed: 05/17/17 16:39> <Lorri Kumar - Last Filed: 05/18/17 06:55> - General Stated Complaint: LEFT SHOULDER Time Seen by Provider: 05/17/17 16:33 Past History - Past Medical History Anemia: No Asthma: No Cancer: Yes (mesothelioma) Cardiac Disorders: No CVA: No COPD: No CHF: No DVT: No Dementia: No Diabetes: No GI Disorders: No Disorders: No HTN: Yes Hypercholesterolemia: No Kidney Stones: No Liver Disease: No Psychiatric Problems: Yes (alcoholism) Seizures: No Thyroid Disease: No - Surgical History Abdominal Surgery: No Appendectomy: No Cardiac Surgery: No Cholecystectomy: No Lung Surgery: No Neurologic Surgery: No Orthopedic Surgery: No - Family Disease History Family Disease History: CA: Mother - Reproductive History Testicular Surgery: No - Immunization History TDAP Vaccination: Yes Immunization Up to Date: Yes - Suicide/Smoking/Psychosocial Hx Smoking Status: No Smoking History: Never smoked Have you smoked in the past 12 months: No Number of Cigarettes Smoked Daily: 0 Cigars Per Day: 0 Information on smoking cessation initiated: No 'Breaking Loose' booklet given: 11/02/16 Hx Alcohol Use: Yes Drug/Substance Use Hx: No Substance Use Type: Alcohol Hx Substance Use Treatment: Yes <Jacob Bertrand - Last Filed: 05/17/17 16:33> <Sahil Penny - Last Filed: 05/17/17 16:39> <Lorri Kumar - Last Filed: 05/18/17 06:55> - Past Medical History Allergies/Adverse Reactions: Allergies Allergy/AdvReac Type Severity Reaction Status Date / Time Fish Containing Products Allergy Mild Verified 05/16/17 11:32 No Known Drug Allergies Allergy Verified 05/16/17 11:32 Home Medications: Ambulatory Orders NK [No Known Home Medication] 04/03/17 Review of Systems - Review of Systems Able to Perform ROS?: No (Intoxicaed) <Sahil Penny - Last Filed: 05/17/17 16:39> *Physical Exam - Vital Signs Last Vital Signs Temp Pulse Resp BP Pulse Ox 97.7 F 85 18 101/51 96 05/17/17 15:51 05/17/17 15:51 05/17/17 15:51 05/17/17 15:51 05/17/17 15:51 <Jacob Bertrand - Last Filed: 05/17/17 16:33> - Vital Signs Last Vital Signs Temp Pulse Resp BP Pulse Ox 97.7 F 85 18 101/51 96 05/17/17 15:51 05/17/17 15:51 05/17/17 15:51 05/17/17 15:51 05/17/17 15:51 - Physical Exam Comments: 05/17/17 16:39 GENERAL: Awake, alert, and fully oriented, in no acute distress HEAD: No signs of trauma EYES: PERRLA, EOMI, sclera anicteric, conjunctiva clear ENT: Auricles normal inspection, hearing grossly normal, nares patent, oropharynx clear without exudates. Moist mucosa NECK: Normal ROM, supple, no lymphadenopathy, JVD, or masses LUNGS: Breath sounds equal, clear to auscultation bilaterally. No wheezes, and no crackles HEART: Regular rate and rhythm, normal S1 and S2, no murmurs, rubs or gallops ABDOMEN: Soft, nontender, normoactive bowel sounds. No guarding, no rebound. No masses EXTREMITIES: Normal range of motion, no edema. No clubbing or cyanosis. No cords, erythema, or tenderness NEUROLOGICAL: Cranial nerves II through XII grossly intact. Normal speech, normal gait SKIN: Warm, Dry, normal turgor, no rashes or lesions noted. <Sahil Penny - Last Filed: 05/17/17 16:39> - Vital Signs Last Vital Signs Temp Pulse Resp BP Pulse Ox 98.4 F 78 18 125/76 93 L 05/17/17 21:46 05/17/17 23:54 05/17/17 23:54 05/17/17 23:54 05/17/17 23:54 <Lorri Kumar - Last Filed: 05/18/17 06:55> ED Treatment Course - RADIOLOGY Radiology Studies Ordered: Category Date Time Status SHOULDER-LEFT [RAD] Stat Radiology 05/18/17 01:09 Taken - Medications Given in the ED: ED Medications Discontinued Medications Generic Name Dose Route Start Last Admin Trade Name Francisco Javier PRN Reason Stop Dose Admin Oxycodone/Acetaminophen 2 combo 05/18/17 01:46 05/18/17 02:28 Percocet 5/325 - PO 05/18/17 01:47 2 combo ONCE ONE Administration <Lorri Kumar - Last Filed: 05/18/17 06:55> Medical Decision Making - Medical Decision Making 05/18/17 04:13 I received pt on signout. Pt is alcohol intox and he has lateral clavicle fracture; he will be placed in a sling. Pt wants detox. I called [facility] detox ctr [phone] and they are sendin Mr. Coker to pick pt up [phone] <Lorri Kumar - Last Filed: 05/18/17 06:55> *DC/Admit/Observation/Transfer - Attestations Physician Attestion: 05/17/17 16:33 I, Dr. Jacob Bertrand, attest that this document has been prepared under my direction and personally reviewed by me in its entirety. I further attest, that it accurately reflects all work, treatment, procedures and medical decision -making performed by me. <Jacob Bertrand - Last Filed: 05/17/17 16:33> - Attestations Scribe Attestion: 05/17/17 16:40 Documentation prepared by Shail Penny, acting as medical advisor for Jacob Bertrand MD. <Sahil Penny - Last Filed: 05/17/17 16:39> - Discharge Dispostion Admit: No - Post Discharge Activity Activity Comments: 05/18/17 06:55 PT SENT TO [facility] IN [place] <Lorri Kumar - Last Filed: 05/18/17 06:55> Diagnosis at time of Disposition: Alcohol abuse - Discharge Dispostion Disposition: HOME Condition at time of disposition: Stable - Referrals - Patient Instructions Printed Discharge Instructions: DI for Alcohol Abuse
[2017-05-17 21:47] VITALS: TEMP 98.4
[2017-05-17 23:54] VITALS: BP 125/76; PULSE 78
[2017-05-18] MEDS ORDERED: ALBUTEROL SO4 2.5/IPRATROPIUM 0.5 INH SOL 3 ML VIAL.NEB. NEB SCH (02:45)
== END 2017-05-18 04:34 | disposition home or self-care (01) ==
LOC: JER 15:33
DX: F10.120 Alcohol abuse with intoxication, uncomplicated (principal); B86 Scabies; C45.9 Mesothelioma, unspecified; I10 Essential (primary) hypertension
CPT/HCPCS: 73030-TC-LT; 99282-25

== ENCOUNTER 2017-05-20 14:03 | Emergency (ER) | payer OTHER ==
[2017-05-20 14:07] VITALS: BP 106/66; PULSE 90; TEMP 98.5; BMI 31.5
== END 2017-05-20 14:51 | disposition left against medical advice (07) ==
LOC: JER 14:03
DX: Z53.21 Procedure and treatment not carried out due to patient leaving prior to being seen by health care provider (principal)
CPT/HCPCS: 99281-25

== ENCOUNTER 2017-05-22 13:13 | Emergency (ER) | payer OTHER ==
[2017-05-22 13:37] VITALS: BP 147/97; PULSE 86; TEMP 97; BMI 34.0
--- NOTE | 2017-05-22 13:41 | PDOC ---
History of Present Illness - General Stated Complaint: REVISIT Time Seen by Provider: 05/22/17 13:40 - History of Present Illness Initial Comments: 05/22/17 13:42 Mr. De Leon is a 62 yo male w/ pmh of HTN, mesothelioma, recent L clavicle fracture (05/17) and alcohol abuse BIBA for acute alcohol intoxication. Mr. De Leon is well known to the service and has no new complaints at this time. The patient denies chest pain, shortness of breath, headache and dizziness. Denies fever, chills, nausea, vomit, diarrhea and constipation. Denies dysuria, frequency, urgency and hematuria. Allergies: Fish products Past History - Past Medical History Allergies/Adverse Reactions: Allergies Allergy/AdvReac Type Severity Reaction Status Date / Time Fish Containing Products Allergy Mild Verified 05/20/17 14:07 No Known Drug Allergies Allergy Verified 05/20/17 14:07 Home Medications: Ambulatory Orders NK [No Known Home Medication] 04/03/17 Anemia: No Asthma: No Cancer: Yes (mesothelioma) Cardiac Disorders: No CVA: No COPD: No CHF: No DVT: No Dementia: No Diabetes: No GI Disorders: No Disorders: No HTN: Yes Hypercholesterolemia: No Kidney Stones: No Liver Disease: No Psychiatric Problems: Yes (alcoholism) Seizures: No Thyroid Disease: No - Surgical History Abdominal Surgery: No Appendectomy: No Cardiac Surgery: No Cholecystectomy: No Lung Surgery: No Neurologic Surgery: No Orthopedic Surgery: No - Family Disease History Family Disease History: CA: Mother - Reproductive History Testicular Surgery: No - Immunization History TDAP Vaccination: Yes Immunization Up to Date: Yes - Suicide/Smoking/Psychosocial Hx Smoking Status: No Smoking History: Never smoked Have you smoked in the past 12 months: No Number of Cigarettes Smoked Daily: 0 Cigars Per Day: 0 Information on smoking cessation initiated: No 'Breaking Loose' booklet given: 11/02/16 Hx Alcohol Use: No Drug/Substance Use Hx: No Substance Use Type: Alcohol Hx Substance Use Treatment: Yes Review of Systems - Review of Systems Comments:: 05/22/17 13:47 GENERAL/CONSTITUTIONAL: No fever or chills. No weakness. HEAD, EYES, EARS, NOSE AND THROAT: No change in vision. No ear pain or discharge. No sore throat. CARDIOVASCULAR: No chest pain or shortness of breath RESPIRATORY: No cough, wheezing, or hemoptysis. GASTROINTESTINAL: No nausea, vomiting, diarrhea or constipation. GENITOURINARY: No dysuria, frequency, or change in urination. MUSCULOSKELETAL:+Left shoulder pain after his clavicle fracture on 05/17. He reports he has thrown his sling away. SKIN: No rash NEUROLOGIC: No headache, vertigo, loss of consciousness, or change in strength/ sensation. ENDOCRINE: No increased thirst. No abnormal weight change HEMATOLOGIC/LYMPHATIC: No anemia, easy bleeding, or history of blood clots. ALLERGIC/IMMUNOLOGIC: No hives or skin allergy. *Physical Exam - Vital Signs Last Vital Signs Temp Pulse Resp BP Pulse Ox 97 F L 86 18 147/97 96 05/22/17 13:15 05/22/17 13:15 05/22/17 13:15 05/22/17 13:15 05/22/17 13:15 - Physical Exam Comments: 05/22/17 13:49 GENERAL: Awake, alert, and fully oriented, in no acute distress HEAD: No signs of trauma, normocephalic, atraumatic EYES: PERRLA, EOMI, sclera anicteric, conjunctiva clear ENT: Auricles normal inspection, hearing grossly normal, nares patent, oropharynx clear without exudates. Moist mucosa NECK: Normal ROM, supple, no lymphadenopathy, JVD, or masses LUNGS: No distress, speaks full sentences, clear to auscultation bilaterally HEART: Regular rate and rhythm, normal S1 and S2, no murmurs, rubs or gallops, peripheral pulses normal and equal bilaterally. ABDOMEN: Soft, nontender, normoactive bowel sounds. No guarding, no rebound. No masses EXTREMITIES: +Left shoulder is ecchymotic extending down to elbow of left upper extremity. NEUROLOGICAL: Cranial nerves II through XII grossly intact. Normal speech, normal gait, no focal sensorimotor deficits SKIN: Warm, Dry, normal turgor, no rashes or lesions noted. Medical Decision Making - Medical Decision Making 05/22/17 16:22 Patient successfully passed PO challenge, took short nap, and is now able to ambulate without assistance. Patient speech clear and patient responding appropriately. Patient is clinically sober and would like to go home. Will discharge with instructions to return as needed for further care. *DC/Admit/Observation/Transfer Diagnosis at time of Disposition: Intoxication - Discharge Dispostion Disposition: HOME - Referrals Referrals: Garima Bridges MD [Primary Care Provider] - - Patient Instructions Printed Discharge Instructions: DI for Alcohol Abuse Additional Instructions: Please return if any increased pain, altered mental status, or other concerning symptoms. - Post Discharge Activity
--- NOTE | 2017-05-22 14:04 | PDOC ---
Attending Attestation - Resident Resident Name: Kelvin Kee - ED Attending Attestation I have performed the following: I have examined & evaluated the patient, The case was reviewed & discussed with the resident, I agree w/resident's findings & plan, Exceptions are as noted - HPI HPI: 05/22/17 14:01 62 yo male w/ pmh of HTN, mesothelioma, recent L clavicle fracture (05/17) and alcohol abuse BIBA for acute alcohol intoxication. Pt has no complaints, asks for a food tray. - Physicial Exam PE: 05/22/17 14:04 GENERAL: Awake, alert, and fully oriented, eating from his food tray HEAD: No signs of trauma EYES: PERRLA, EOMI, sclera anicteric, conjunctiva clear ENT: Auricles normal inspection, hearing grossly normal, nares patent, oropharynx clear without exudates. Moist mucosa NECK: Normal ROM, supple, no lymphadenopathy, JVD, or masses LUNGS: Breath sounds equal, clear to auscultation bilaterally. No wheezes, and no crackles HEART: Regular rate and rhythm, normal S1 and S2, no murmurs, rubs or gallops ABDOMEN: Soft, nontender, normoactive bowel sounds. No guarding, no rebound. No masses EXTREMITIES: Normal range of motion, no edema. No clubbing or cyanosis. No cords, erythema, or tenderness. +ecchymosis of the L shoulder but no deformities and FROM NEUROLOGICAL: Normal speech, cranial nerves intact, negative pronator drift, 5/ 5 strength in all 4 extremities, normal sensation to light touch in all 4 extremities, normal cerebellar exam, normal gait, normal reflexes and tone SKIN: Warm, Dry, normal turgor, no rashes or lesions noted. - Medical Decision Making 05/22/17 14:05 62-year-old male with frequent ED visits for alcohol intoxication presents with alcohol intoxication, requesting food tray. Vitals are unremarkable. Exam with bruising over left shoulder consistent with recent left clavicular injury. Patient only slightly clinically intoxicated for now, will observe and likely discharge when patient is clinically sober
== END 2017-05-22 16:30 | disposition home or self-care (01) ==
LOC: JER 13:13
DX: F10.120 Alcohol abuse with intoxication, uncomplicated (principal); I10 Essential (primary) hypertension; C45.9 Mesothelioma, unspecified
CPT/HCPCS: 99282-25

== ENCOUNTER 2017-05-22 19:50 | Emergency (ER) | payer OTHER ==
[2017-05-22 19:54] VITALS: BP 114/71; PULSE 88; BMI 32.5
--- NOTE | 2017-05-22 20:20 | PDOC ---
History of Present Illness - General Chief Complaint: Alcohol intoxication Stated Complaint: Alcohol intoxication Time Seen by Provider: 05/22/17 20:06 - History of Present Illness Initial Comments: 05/22/17 20:20 62M with h/o HTN, mesothelioma, recent L clavicle fracture (05/17) and alcohol abuse, presenting to ER for ETOH intoxication. Pt was seen earlier today in this ER for same. Pt awake and alert, denies any complaints at this time. States that he came because he wanted to be warm. Past History - Past Medical History Allergies/Adverse Reactions: Allergies Allergy/AdvReac Type Severity Reaction Status Date / Time Fish Containing Products Allergy Mild Verified 05/22/17 19:52 No Known Drug Allergies Allergy Verified 05/22/17 19:52 Home Medications: Ambulatory Orders NK [No Known Home Medication] 04/03/17 Anemia: No Asthma: No Cancer: Yes (mesothelioma) Cardiac Disorders: No CVA: No COPD: No CHF: No DVT: No Dementia: No Diabetes: No GI Disorders: No Disorders: No HTN: Yes Hypercholesterolemia: No Kidney Stones: No Liver Disease: No Psychiatric Problems: Yes (alcoholism) Seizures: No Thyroid Disease: No - Surgical History Abdominal Surgery: No Appendectomy: No Cardiac Surgery: No Cholecystectomy: No Lung Surgery: No Neurologic Surgery: No Orthopedic Surgery: No - Family Disease History Family Disease History: CA: Mother - Reproductive History Testicular Surgery: No - Immunization History TDAP Vaccination: Yes Immunization Up to Date: Yes - Suicide/Smoking/Psychosocial Hx Smoking Status: No Smoking History: Never smoked Have you smoked in the past 12 months: No Number of Cigarettes Smoked Daily: 0 Cigars Per Day: 0 Information on smoking cessation initiated: No 'Breaking Loose' booklet given: 11/02/16 Hx Alcohol Use: Yes Drug/Substance Use Hx: No Substance Use Type: Alcohol Hx Substance Use Treatment: Yes Review of Systems - Review of Systems Comments:: 05/22/17 20:22 "GENERAL/CONSTITUTIONAL: No fever or chills. No weakness. HEAD, EYES, EARS, NOSE AND THROAT: No change in vision. No ear pain or discharge. No sore throat. CARDIOVASCULAR: No chest pain or shortness of breath. RESPIRATORY: No cough, wheezing, or hemoptysis. GASTROINTESTINAL: No nausea, vomiting, diarrhea or constipation. GENITOURINARY: No dysuria, frequency, or change in urination. MUSCULOSKELETAL: No joint or muscle swelling or pain. No neck or back pain. SKIN: No rash NEUROLOGIC: No headache, vertigo, loss of consciousness, or change in strength/ sensation. ENDOCRINE: No increased thirst. No abnormal weight change. HEMATOLOGIC/LYMPHATIC: No anemia, easy bleeding, or history of blood clots. ALLERGIC/IMMUNOLOGIC: No hives or skin allergy. " *Physical Exam - Vital Signs Last Vital Signs Temp Pulse Resp BP Pulse Ox 88 14 114/71 92 L 05/22/17 19:52 05/22/17 19:52 05/22/17 19:52 05/22/17 19:52 - Physical Exam Comments: 05/22/17 20:22 "GENERAL: Awake, alert, and fully oriented, in no acute distress HEAD: No signs of trauma EYES: PERRLA, EOMI, sclera anicteric, conjunctiva clear ENT: Auricles normal inspection, hearing grossly normal, nares patent, oropharynx clear without exudates. Moist mucosa NECK: Nontender, no stepoffs, Normal ROM, supple, no lymphadenopathy, JVD, or masses LUNGS: Breath sounds equal, clear to auscultation bilaterally. No wheezes, and no crackles HEART: Regular rate and rhythm, normal S1 and S2, no murmurs, rubs or gallops ABDOMEN: Soft, nontender, normoactive bowel sounds. No guarding, no rebound. No masses EXTREMITIES: Normal range of motion, no edema. No clubbing or cyanosis. No cords, erythema, or tenderness NEUROLOGICAL: Cranial nerves II through XII intact. 5/5 strength and sensation in all extremities, Normal speech, normal gait SKIN: Warm, Dry, normal turgor, no rashes or lesions noted. " Medical Decision Making - Medical Decision Making 05/22/17 20:22 62 M presenting to ER for ETOH intoxication. Well appearing with no complaints at this time, no signs of trauma on exam. - Metabolize in ER - PO trial 05/23/17 01:10 Pt reassessed - now awake, alert, tolerating PO. vitals stable. Pt clinically stable for DC *DC/Admit/Observation/Transfer Diagnosis at time of Disposition: Intoxication - Discharge Dispostion Disposition: HOME - Referrals Referrals: Garima Bridges MD [Primary Care Provider] - - Patient Instructions Printed Discharge Instructions: DI for Alcohol Abuse - Post Discharge Activity - Attestations Physician Attestion: 05/23/17 01:11 I, Dr. Jamal Rodriges MD, attest that this document has been prepared under my direction and personally reviewed by me in its entirety. I further attest, that it accurately reflects all work, treatment, procedures and medical decision -making performed by me.
== END 2017-05-23 04:14 | disposition home or self-care (01) ==
LOC: JER 19:50
DX: F10.120 Alcohol abuse with intoxication, uncomplicated (principal); C45.9 Mesothelioma, unspecified; I10 Essential (primary) hypertension
CPT/HCPCS: 99281-25

== ENCOUNTER 2017-05-24 22:24 | Emergency (ER) | payer OTHER ==
[2017-05-24 22:39] VITALS: BMI 36.5
--- NOTE | 2017-05-25 02:06 | PDOC ---
History of Present Illness - General Chief Complaint: Alcohol intoxication Stated Complaint: INTOX Time Seen by Provider: 05/24/17 22:34 History Source: Patient, EMS Exam Limitations: No Limitations - History of Present Illness Initial Comments: 05/25/17 02:01 Patient is a 62-year-old male with EtOH abuse, HTN, mesothelioma, recent left clavicular fracture, brought in by EMS for complaint of intoxication. Patient has had multiple visits to the ER for the same. Complains of left shoulder pain which has been ongoing for a few weeks status post clavicle fracture, requesting something for pain. EMS patient had no injury today. Found him sitting in on a park bench. States he called EMS. PMD: None PMHX: as above Psochx: (+) etoh abuse, (-) cig, (-) drug ALL: NKDA GENERAL/CONSTITUTIONAL: [No fever or chills. No weakness. No weight change.] HEAD, EYES, EARS, NOSE AND THROAT: [No change in vision. No ear pain or discharge. No sore throat.] CARDIOVASCULAR: [No chest pain or shortness of breath.] RESPIRATORY: [No cough, wheezing, or hemoptysis.] GASTROINTESTINAL: [No nausea, vomiting, diarrhea or constipation. No rectal bleeding.] GENITOURINARY: [No dysuria, frequency, or change in urination.] MUSCULOSKELETAL: (+) joint or muscle swelling or pain. No neck or back pain.] SKIN AND BREASTS: [No rash (+) bruising.] NEUROLOGIC: [No headache, vertigo, loss of consciousness, or loss of sensation.] PSYCHIATRIC: [No depression or anxiety.] ENDOCRINE: [No increased thirst. No abnormal weight change.] HEMATOLOGIC/LYMPHATIC: [No anemia, easy bleeding, or history of blood clots.] ALLERGIC/IMMUNOLOGIC: [No hives or skin allergy. No latex allergy.] GENERAL: [The patient is awake, alert, and fully oriented, in no acute distress. ] HEAD: [Normal with no signs of trauma.] EYES: [Pupils equal, round and reactive to light, extraocular movements intact, sclera anicteric, conjunctiva clear.] ENT: [Ears normal, nares patent, oropharynx clear without exudates. Moist mucous membranes.] NECK: [Normal range of motion, supple without lymphadenopathy, JVD, or masses.] LUNGS: [Breath sounds equal, clear to auscultation bilaterally. No wheezes, and no crackles.] HEART: [Regular rate and rhythm, normal S1 and S2 without murmur, rub.] ABDOMEN: [Soft, nontender, normoactive bowel sounds. No guarding, no rebound. No masses.] EXTREMITIES: Decreased range of motion to the left shoulder, deformity over the distal clavicle, no edema. No clubbing or cyanosis. No cords, erythema, or tenderness.] NEUROLOGICAL: [Cranial nerves II through XII grossly intact. Normal speech, normal gait.] PSYCH: [Normal mood, normal affect.] SKIN: Dark colored bruising noted to the left upper back and left shoulder. (- ) rashes or lesions noted.] Past History - Past Medical History Allergies/Adverse Reactions: Allergies Allergy/AdvReac Type Severity Reaction Status Date / Time Fish Containing Products Allergy Mild Verified 05/24/17 22:37 No Known Drug Allergies Allergy Verified 05/24/17 22:37 Home Medications: Ambulatory Orders NK [No Known Home Medication] 04/03/17 Anemia: No Asthma: No Cancer: Yes (mesothelioma) Cardiac Disorders: No CVA: No COPD: No CHF: No DVT: No Dementia: No Diabetes: No GI Disorders: No Disorders: No HTN: Yes Hypercholesterolemia: No Kidney Stones: No Liver Disease: No Psychiatric Problems: Yes (alcoholism) Seizures: No Thyroid Disease: No - Surgical History Abdominal Surgery: No Appendectomy: No Cardiac Surgery: No Cholecystectomy: No Lung Surgery: No Neurologic Surgery: No Orthopedic Surgery: No - Family Disease History Family Disease History: CA: Mother - Reproductive History Testicular Surgery: No - Immunization History TDAP Vaccination: Yes Immunization Up to Date: Yes - Suicide/Smoking/Psychosocial Hx Smoking Status: No Smoking History: Never smoked Have you smoked in the past 12 months: No Number of Cigarettes Smoked Daily: 0 Cigars Per Day: 0 Information on smoking cessation initiated: No 'Breaking Loose' booklet given: 11/02/16 Hx Alcohol Use: No Drug/Substance Use Hx: No Substance Use Type: Alcohol Hx Substance Use Treatment: Yes *Physical Exam - Vital Signs Last Vital Signs Temp Pulse Resp BP Pulse Ox 98.1 F 96 H 18 144/93 97 05/24/17 22:37 05/24/17 22:37 05/24/17 22:37 05/24/17 22:37 05/24/17 22:37 ED Treatment Course - Medications Given in the ED: ED Medications Discontinued Medications Generic Name Dose Route Start Last Admin Trade Name Francisco Javier PRN Reason Stop Dose Admin Oxycodone/Acetaminophen 1 combo 05/24/17 22:48 05/24/17 23:22 Percocet 5/325 - PO 05/24/17 22:49 1 combo ONCE ONE Administration Medical Decision Making - Medical Decision Making 05/25/17 02:06 Patient is a 62-year-old male with EtOH abuse, brought in by EMS for complaint of intoxication. We will allow patient to see pending sobriety. patient now awake, alert oriented 3, with steady gait c/o epigastric discomfort given maalox I discussed the physical exam findings, ancillary test results and final diagnoses with the patient. I answered all of the patient's questions. The patient was satisfied with the care received and felt comfortable with the discharge plan and treatment plan. The Patient agrees to follow up with the primary care physician within 24-72 hours. *DC/Admit/Observation/Transfer Diagnosis at time of Disposition: Alcohol intoxication Qualifiers: Complication of substance-induced condition: uncomplicated Qualified Code(s): F10.920 - Alcohol use, unspecified with intoxication, uncomplicated - Discharge Dispostion Disposition: HOME Condition at time of disposition: Stable - Referrals - Patient Instructions Additional Instructions: Your Discharge Instructions: You must call primary care physician within 24 hours to arrange follow-up. Return to the Emergency Department with any new, persistent or worsening symptoms, for fever, chills, SOB, dizziness or any other concerning changes that may occur. - Post Discharge Activity
[2017-05-25 06:22] VITALS: BP 129/80; PULSE 94; TEMP 99
[2017-05-25] MEDS ORDERED: MAG HYDROX/AL HYDROX/SIMETH 30 ML UNIT-DOSE CUP PO ONE (07:16)
[2017-05-25] MEDS ORDERED: MAG HYDROX/AL HYDROX/SIMETH 30 ML UNIT-DOSE CUP ONE (07:20)
== END 2017-05-25 07:45 | disposition home or self-care (01) ==
LOC: JER 22:24
DX: F10.920 Alcohol use, unspecified with intoxication, uncomplicated (principal); C45.9 Mesothelioma, unspecified
CPT/HCPCS: 99282-25

== ENCOUNTER 2017-05-25 11:43 | Emergency (ER) | payer OTHER ==
[2017-05-25 11:56] VITALS: BP 100/63; PULSE 92; TEMP 98.5; BMI 34.0
--- NOTE | 2017-05-25 12:20 | PDOC ---
Attending Attestation - Resident Resident Name: Sindhu Sosa - ED Attending Attestation I have performed the following: I have examined & evaluated the patient, The case was reviewed & discussed with the resident, I agree w/resident's findings & plan, Exceptions are as noted - HPI HPI: 05/25/17 12:[address] [place] police directed EMS to transport patient here. Just left at 7am this same calendar day - Physicial Exam PE: 05/25/17 12:19 VSS/NAD, complaining of left arm/shoulder pain - Medical Decision Making 05/25/17 12:[address] Sosa's assessment and plan Discharge Disposition - Diagnosis Intoxication - Discharge Dispostion Disposition: ELOPED Condition at time of disposition: Unchanged/Unknown Admit: No - Referrals - Patient Instructions Printed Discharge Instructions: DI for Alcohol Abuse - Post Discharge Activity
--- NOTE | 2017-05-25 13:40 | PDOC ---
History of Present Illness - General Chief Complaint: Alcohol intoxication Stated Complaint: DETOX Time Seen by Provider: 05/25/17 12:12 - History of Present Illness Initial Comments: 05/25/17 13:33 62yo man with PMH of HTN, mesothelioma, L clavicle fracture (05/17), EtOH abuse, and frequent ED visits who was BIBEMS for acute alcohol intoxication. Pt has no complaints, asks for a food tray. Denies any pain. Patient was reportedly sent to a detox facility in [place]. He reports that he went last week; cannot recall location, but somewhere around [address] [place] [address]. He was told that he needed to shower before being accepted, but he "did not fit into the shower" and was then asked to leave. He took a train and bus back to [place]. He says he want stop drinking. Past History - Past Medical History Allergies/Adverse Reactions: Allergies Allergy/AdvReac Type Severity Reaction Status Date / Time Fish Containing Products Allergy Mild Verified 05/24/17 22:37 No Known Drug Allergies Allergy Verified 05/24/17 22:37 Home Medications: Ambulatory Orders NK [No Known Home Medication] 04/03/17 Anemia: No Asthma: No Cancer: Yes (mesothelioma) Cardiac Disorders: No CVA: No COPD: No CHF: No DVT: No Dementia: No Diabetes: No GI Disorders: No Disorders: No HTN: Yes Hypercholesterolemia: No Kidney Stones: No Liver Disease: No Psychiatric Problems: Yes (alcoholism) Seizures: No Thyroid Disease: No - Surgical History Abdominal Surgery: No Appendectomy: No Cardiac Surgery: No Cholecystectomy: No Lung Surgery: No Neurologic Surgery: No Orthopedic Surgery: No - Family Disease History Family Disease History: CA: Mother - Reproductive History Testicular Surgery: No - Immunization History TDAP Vaccination: Yes Immunization Up to Date: Yes - Suicide/Smoking/Psychosocial Hx Smoking Status: No Smoking History: Never smoked Have you smoked in the past 12 months: No Number of Cigarettes Smoked Daily: 0 Cigars Per Day: 0 'Breaking Loose' booklet given: 11/02/16 Hx Alcohol Use: Yes Drug/Substance Use Hx: No Substance Use Type: Alcohol Hx Substance Use Treatment: Yes *Physical Exam - Vital Signs Last Vital Signs Temp Pulse Resp BP Pulse Ox 98.5 F 92 H 18 100/63 95 05/25/17 11:53 05/25/17 11:53 05/25/17 11:53 05/25/17 11:53 05/25/17 11:53 - Physical Exam General Appearance: Yes: Disheveled Respiratory/Chest: positive: Lungs Clear, Normal Breath Sounds Cardiovascular: positive: Regular Rhythm, Regular Rate, S1, S2 Medical Decision Making - Medical Decision Making 05/25/17 13:49 Patient ate lunch. Will let him sleep off acute intoxication and reassess. Patient eloped before he could be reassessed. *DC/Admit/Observation/Transfer Diagnosis at time of Disposition: Intoxication - Discharge Dispostion Disposition: ELOPED - Referrals - Patient Instructions - Post Discharge Activity
== END 2017-05-25 19:27 | disposition left against medical advice (07) ==
LOC: JER 11:43
DX: F10.120 Alcohol abuse with intoxication, uncomplicated (principal); C45.9 Mesothelioma, unspecified; I10 Essential (primary) hypertension
CPT/HCPCS: 99282-25

== ENCOUNTER 2017-05-27 18:54 | Emergency (ER) | payer OTHER ==
[2017-05-27 19:14] VITALS: TEMP 98.7; BMI 41.3
--- NOTE | 2017-05-27 19:23 | PDOC ---
History of Present Illness - General History Source: Patient Exam Limitations: Intoxication - History of Present Illness Initial Comments: 05/27/17 20:54 62 y.o male well known to this ED with PMH of EtOH abuse, HTN, mesothelioma, Left clavicle fracture (05/17) who presents to the ED BIBA for alcohol intoxication. Pt is more tearful than usual but awake and has no complaints <Regina Harrison - Last Filed: 05/27/17 20:54> <Skye Rashid - Last Filed: 05/28/17 00:39> - General Chief Complaint: Pain Stated Complaint: SHOULDER PAIN Time Seen by Provider: 05/27/17 19:04 Past History <Regina Harrison - Last Filed: 05/27/17 20:54> - Past Medical History Anemia: No Asthma: No Cancer: Yes (mesothelioma) Cardiac Disorders: No CVA: No COPD: No CHF: No DVT: No Dementia: No Diabetes: No GI Disorders: No Disorders: No HTN: Yes Hypercholesterolemia: No Kidney Stones: No Liver Disease: No Psychiatric Problems: Yes (alcoholism) Seizures: No Thyroid Disease: No - Surgical History Abdominal Surgery: No Appendectomy: No Cardiac Surgery: No Cholecystectomy: No Lung Surgery: No Neurologic Surgery: No Orthopedic Surgery: No - Family Disease History Family Disease History: CA: Mother - Reproductive History Testicular Surgery: No - Immunization History TDAP Vaccination: Yes Immunization Up to Date: Yes - Suicide/Smoking/Psychosocial Hx Smoking Status: No Smoking History: Never smoked Have you smoked in the past 12 months: No Number of Cigarettes Smoked Daily: 0 Cigars Per Day: 0 Information on smoking cessation initiated: No 'Breaking Loose' booklet given: 11/02/16 Hx Alcohol Use: No Drug/Substance Use Hx: No Substance Use Type: Alcohol Hx Substance Use Treatment: Yes <Skye Rashid - Last Filed: 05/28/17 00:39> - Past Medical History Allergies/Adverse Reactions: Allergies Allergy/AdvReac Type Severity Reaction Status Date / Time Fish Containing Products Allergy Mild Verified 05/27/17 19:14 No Known Drug Allergies Allergy Verified 05/27/17 19:14 Home Medications: Ambulatory Orders NK [No Known Home Medication] 04/03/17 Review of Systems - Review of Systems Comments:: 05/27/17 20:55 GENERAL/CONSTITUTIONAL: +Intoxicated. No fever or chills. No weakness. HEAD, EYES, EARS, NOSE AND THROAT: No change in vision. No ear pain or discharge. No sore throat. GASTROINTESTINAL: No nausea, vomiting, diarrhea or constipation. GENITOURINARY: No dysuria, frequency, or change in urination. CARDIOVASCULAR: No chest pain or shortness of breath. RESPIRATORY: No cough, wheezing, or hemoptysis. MUSCULOSKELETAL: No joint or muscle swelling or pain. No neck or back pain. SKIN: No rash NEUROLOGIC: No headache, vertigo, loss of consciousness, or change in strength/ sensation. <Regina Harrison - Last Filed: 05/27/17 20:54> *Physical Exam - Vital Signs Last Vital Signs Temp Pulse Resp BP Pulse Ox 98.7 F 91 H 18 98/65 96 05/27/17 19:07 05/27/17 19:07 05/27/17 19:07 05/27/17 19:07 05/27/17 19:07 - Physical Exam Comments: 05/27/17 20:55 Constitutional: Awake, Intoxicated and more tearful than usual Head: Normocephalic. Atraumatic Eyes: PERRL. EOMI. Conjunctivae are not pale. ENT: Mucous membranes are moist and intact. Posterior pharynx without exudates or erythema. Uvula midline. Neck: Supple. Full ROM. No lymphadenopathy. Cardiovascular: Regular rate. Regular rhythm. S1, S2 regular. Distal pulses are 2+ and symmetric. Pulmonary/Chest: No evidence of respiratory distress. Clear to auscultation bilaterally No wheezing, rales or rhonchi. Abdominal: Soft and non-distended. There is no tenderness. No rebound, guarding or rigidity. No organomegaly. No palpable masses. Good bowel sounds. Back: No CVA tenderness. Musculoskeletal: No edema. No cyanosis. No clubbing. Full range of motion in all extremities. Nocalf tenderness. Radial/pedal pulses are intact and 2+ bilaterally Skin: Skin is warm and dry. No petechiae. No purpura. Neurological: Cranial nerves II-XII are grossly intact. Strength is grossly symmetric. No sensory deficits. <Regina Harrison - Last Filed: 05/27/17 20:54> - Vital Signs Last Vital Signs Temp Pulse Resp BP Pulse Ox 98.7 F 91 H 18 98/65 96 05/27/17 19:07 05/27/17 19:07 05/27/17 19:07 05/27/17 19:07 05/27/17 19:07 <Skye Rashid - Last Filed: 05/28/17 00:39> Medical Decision Making - Medical Decision Making 05/27/17 20:49 62yo male brought in by medics for eval of intoxictaion -pt admits to etoh use today -tearful when talking about the loss of his son -no external signs of trauma -will monitor and reassess 05/28/17 00:38 pt has tolerated po intake in the ed <Skye Rashid - Last Filed: 05/28/17 00:39> *DC/Admit/Observation/Transfer - Attestations Scribe Attestion: 05/27/17 20:56 Documentation prepared by JOSE ANTONIO Guillaume, acting as certified medical coding specialist for Skye Rashid DO. <Regina Harrison - Last Filed: 05/27/17 20:54> - Discharge Dispostion Admit: No - Attestations Physician Attestion: 05/28/17 00:39 I, Dr. Skye Rashid DO, attest that this document has been prepared under my direction and personally reviewed by me in its entirety. I further attest, that it accurately reflects all work, treatment, procedures and medical decision -making performed by me. <Skye Rashid - Last Filed: 05/28/17 00:39> Diagnosis at time of Disposition: Intoxication, Alcohol dependence - Discharge Dispostion Condition at time of disposition: Stable - Referrals Referrals: Garima Bridges MD [Primary Care Provider] - - Patient Instructions - Post Discharge Activity
[2017-05-28 07:43] VITALS: BP 159/91; PULSE 104
== END 2017-05-28 08:05 | disposition left against medical advice (07) ==
LOC: JER 18:54
DX: F10.220 Alcohol dependence with intoxication, uncomplicated (principal); I10 Essential (primary) hypertension; C45.9 Mesothelioma, unspecified; Z87.81 Personal history of (healed) traumatic fracture; Z59.0 Homelessness
CPT/HCPCS: 99282-25

== ENCOUNTER 2017-06-03 12:27 | Emergency (ER) | payer OTHER ==
--- NOTE | 2017-06-03 12:38 | PDOC ---
History of Present Illness - General History Source: Patient Exam Limitations: No Limitations - History of Present Illness Initial Comments: 06/03/17 13:08 The patient is a 62-year-old male well known to this ED, with a significant past medical history of EtOH abuse, HTN, mesothelioma, Left clavicle fracture ( 05/17) who presents to the ED via EMS for alcohol intoxication. Pt states that he is not feeling well. He appears to be less jovial and enthusiastic than usual. <Nina Rae - Last Filed: 06/03/17 13:08> <Skye Rashid - Last Filed: 06/03/17 14:34> - General Stated Complaint: WEAKNESS Time Seen by Provider: 06/03/17 12:37 Past History <Nina Rae - Last Filed: 06/03/17 13:08> - Past Medical History Anemia: No Asthma: No Cancer: Yes (mesothelioma) Cardiac Disorders: No CVA: No COPD: No CHF: No DVT: No Dementia: No Diabetes: No GI Disorders: No Disorders: No HTN: Yes Hypercholesterolemia: No Kidney Stones: No Liver Disease: No Psychiatric Problems: Yes (alcoholism) Seizures: No Thyroid Disease: No - Surgical History Abdominal Surgery: No Appendectomy: No Cardiac Surgery: No Cholecystectomy: No Lung Surgery: No Neurologic Surgery: No Orthopedic Surgery: No - Family Disease History Family Disease History: CA: Mother - Reproductive History Testicular Surgery: No - Immunization History TDAP Vaccination: Yes Immunization Up to Date: Yes - Suicide/Smoking/Psychosocial Hx Smoking Status: No Smoking History: Never smoked Have you smoked in the past 12 months: No Number of Cigarettes Smoked Daily: 0 Cigars Per Day: 0 'Breaking Loose' booklet given: 11/02/16 Hx Alcohol Use: No Drug/Substance Use Hx: No Substance Use Type: Alcohol Hx Substance Use Treatment: Yes <Skye Rashid - Last Filed: 06/03/17 14:34> - Past Medical History Allergies/Adverse Reactions: Allergies Allergy/AdvReac Type Severity Reaction Status Date / Time Fish Containing Products Allergy Mild Verified 06/03/17 13:13 No Known Drug Allergies Allergy Verified 06/03/17 13:13 Home Medications: Ambulatory Orders NK [No Known Home Medication] 04/03/17 Review of Systems - Review of Systems Able to Perform ROS?: Yes Comments:: 06/03/17 13:08 GENERAL/CONSTITUTIONAL: No fever or chills. No weakness. HEAD, EYES, EARS, NOSE AND THROAT: No change in vision. No ear pain or discharge. No sore throat. CARDIOVASCULAR: No chest pain or shortness of breath. RESPIRATORY: No cough, wheezing, or hemoptysis. GASTROINTESTINAL: No nausea, vomiting, diarrhea or constipation. GENITOURINARY: No dysuria, frequency, or change in urination. MUSCULOSKELETAL: (+)Left shoulder pain. No joint swelling or pain. No neck or back pain. SKIN: No rash NEUROLOGIC: No headache, vertigo, loss of consciousness, or change in strength/ sensation. ENDOCRINE: No increased thirst. No abnormal weight change. HEMATOLOGIC/LYMPHATIC: No anemia, easy bleeding, or history of blood clots. ALLERGIC/IMMUNOLOGIC: No hives or skin allergy. <Nina Rae - Last Filed: 06/03/17 13:08> *Physical Exam - Physical Exam Comments: 06/03/17 13:08 GENERAL: Awake, alert, and fully oriented, in no acute distress HEAD: No signs of trauma EYES: PERRLA, EOMI, sclera anicteric, conjunctiva clear ENT: Auricles normal inspection, hearing grossly normal, nares patent, oropharynx clear without exudates. Moist mucosa NECK: Normal ROM, supple, no lymphadenopathy, JVD, or masses LUNGS: Breath sounds equal, clear to auscultation bilaterally. No wheezes, and no crackles HEART: Regular rate and rhythm, normal S1 and S2, no murmurs, rubs or gallops ABDOMEN: Soft, nontender, normoactive bowel sounds. No guarding, no rebound. No masses EXTREMITIES: Normal range of motion, no edema. No clubbing or cyanosis. No cords, erythema, or tenderness NEUROLOGICAL: Cranial nerves II through XII grossly intact. Normal speech, normal gait SKIN: (+)Old ecchymosis to the left-side of chest and left arm. Warm, Dry, normal turgor. <Nina Rae - Last Filed: 06/03/17 13:08> ED Treatment Course - LABORATORY CBC & Chemistry Diagram: 06/03/17 13:00 06/03/17 13:00 <Nina Rae - Last Filed: 06/03/17 13:08> - LABORATORY CBC & Chemistry Diagram: 06/03/17 13:00 06/03/17 13:00 <Skye Rashid - Last Filed: 06/03/17 14:34> Medical Decision Making - Medical Decision Making 06/03/17 14:30 a/p: 62yo male arriving with medics for eval of intox -pale -denies acute pain or falls -slurred speech (baseline for patients intox) -disheveled -will check labs, banana bag, po intake. Will monitor and reassess <Skye Rashid - Last Filed: 06/03/17 14:34> *DC/Admit/Observation/Transfer - Attestations Scribe Attestion: 06/03/17 13:10 Documentation prepared by Nina Rae, acting as medical laboratory scientist for Skye Rashid DO, MD. <Nina Rae - Last Filed: 06/03/17 13:08> - Discharge Dispostion Admit: No - Attestations Physician Attestion: 06/03/17 14:33 I, Dr. Skye Rashid DO, attest that this document has been prepared under my direction and personally reviewed by me in its entirety. I further attest, that it accurately reflects all work, treatment, procedures and medical decision -making performed by me. <Skye Rashid - Last Filed: 06/03/17 14:34> Diagnosis at time of Disposition: Intoxication - Discharge Dispostion Disposition: HOME Condition at time of disposition: Stable - Referrals Referrals: Toni Iyer MD [Staff Physician] - - Patient Instructions Printed Discharge Instructions: Alcohol Use Disorder Additional Instructions: Please go to detox and stop drinking alcohol. Please follow up with your PMD.
[2017-06-03 13:04] LABS: BASO % 1.4 % (0-2.0); HEMATOCRIT 31.6 % (35.4-49); MCH 29.5 pg (25.7-33.7); MCHC 31.5 g/dl (32.0-35.9); MEAN CELL VOLUME 93.6 fl (80-96); MEAN PLT VOLUME 7.5 fl (7.5-11.1); MONO % 9.6 % (3.8-10.2); PLATELET COUNT 256 K/MM3 (134-434); RBC 3.38 M/mm3 (4.00-5.60); RDW 18.4 % (11.9-15.9); WHITE BLOOD COUNT 7.4 K/mm3 (4.0-10.0)
[2017-06-03] MEDS ORDERED: FOLIC ACID INJECTION - 1 MG, THIAMINE HCL 100 MG, MULTIVIT INJECTION ADULT 10 ML in SOD... IVPB ONE (13:09)
[2017-06-03 13:17] VITALS: TEMP 97.5; BMI 32.5
[2017-06-03 13:33] LABS: ANION GAP 10 (8-16); BLOOD UREA NITROGEN 10 mg/dL (7-18); CALCIUM 8.4 mg/dL (8.5-10.1); CHLORIDE 105 mmol/L (98-107); CO2 27 mmol/L (21-32); CREATININE 0.6 mg/dL (0.7-1.3); GLUCOSE,RANDOM 91 mg/dL (74-106); LIPASE 112 U/L (73-393); SGPT/ALT 41 U/L (12-78); SODIUM 142 mmol/L (136-145)
[2017-06-03 13:34] LABS: ALK PHOS 143 U/L (45-117); BILIRUBIN,TOTAL 0.4 mg/dL (0.2-1.0); TOT PROT 6.4 g/dl (6.4-8.2)
[2017-06-03 13:41] LABS: MAGNESIUM 1.8 mg/dL (1.8-2.4); POTASSIUM 3.6 mmol/L (3.5-5.1); SGOT/AST 97 U/L (15-37)
[2017-06-03 17:19] VITALS: BP 98/58; PULSE 105
--- NOTE | 2017-06-03 20:00 | PDOC ---
*Physical Exam - Vital Signs Last Vital Signs Temp Pulse Resp BP Pulse Ox 97.5 F L 105 H 15 98/58 95 06/03/17 13:00 06/03/17 17:00 06/03/17 13:00 06/03/17 17:00 06/03/17 17:00 - Physical Exam General Appearance: Yes: Appropriately Dressed Respiratory/Chest: positive: Lungs Clear, Normal Breath Sounds Cardiovascular: positive: Regular Rate, S1, S2 ED Treatment Course - LABORATORY CBC & Chemistry Diagram: 06/03/17 13:00 06/03/17 13:00 - ADDITIONAL ORDERS Additional order review: Laboratory Results 06/03/17 06/03/17 13:00 13:00 Sodium 142 Potassium 3.6 Chloride 105 Carbon Dioxide 27 Anion Gap 10 BUN 10 D Creatinine 0.6 L Creat Clearance w eGFR > 60 Random Glucose 91 Calcium 8.4 L Magnesium 1.8 Total Bilirubin 0.4 D AST 97 H D ALT 41 D Alkaline Phosphatase 143 H Total Protein 6.4 Albumin 3.0 L Lipase 112 Alcohol, Quantitative 310.6 H* 06/03/17 13:00 RBC 3.38 L MCV 93.6 MCHC 31.5 L RDW 18.4 H MPV 7.5 Neutrophils % 65.0 Lymphocytes % 22.0 Monocytes % 9.6 Eosinophils % 2.0 Basophils % 1.4 Medical Decision Making - Medical Decision Making 06/03/17 19:58 signed out to me by dr. holbrook awaiting sobriety. pt awake and alert ambulating without difficulty. clincally sober. will dc home. *DC/Admit/Observation/Transfer Diagnosis at time of Disposition: Intoxication, Alcohol intoxication - Discharge Dispostion Disposition: HOME Condition at time of disposition: Stable - Referrals Referrals: Toni Iyer MD [Staff Physician] - - Patient Instructions Printed Discharge Instructions: Alcohol Use Disorder Additional Instructions: Please go to detox and stop drinking alcohol. Please follow up with your PMD. - Post Discharge Activity
--- NOTE | 2017-06-17 13:25 | EKG ---
Test Reason : Blood Pressure : / mmHG Vent. Rate : 087 BPM Atrial Rate : 087 BPM P-R Int : 180 ms QRS Dur : 096 ms QT Int : 378 ms P-R-T Axes : 016 -33 017 degrees QTc Int : 454 ms NORMAL SINUS RHYTHM LEFT AXIS DEVIATION NONSPECIFIC ST AND T WAVE ABNORMALITY ABNORMAL ECG WHEN COMPARED WITH ECG OF 12-MAY-2017 07:57, ST NO LONGER DEPRESSED IN ANTERIOR LEADS T WAVE INVERSION NO LONGER EVIDENT IN ANTERIOR LEADS Confirmed by RAQUEL ONOFRE MD ([id number]) on 06/17/2017 1:25:22 PM Referred By: Confirmed By:RAQUEL ONOFRE MD
== END 2017-06-03 20:35 | disposition home or self-care (01) ==
LOC: JER 12:27
PROC: 3E033GC Introduction of Other Therapeutic Substance into Peripheral Vein, Percutaneous Approach (ICD-10-PCS; principal; 2017-06-03)
DX: F10.120 Alcohol abuse with intoxication, uncomplicated (principal); C45.9 Mesothelioma, unspecified
CPT/HCPCS: 36415; 80053; 80307; 83690; 83735; 85025; 93005; 93010; 99283-25

== ENCOUNTER 2017-06-05 20:31 | Emergency (ER) | payer OTHER ==
[2017-06-05 20:55] VITALS: BMI 34.0
--- NOTE | 2017-06-05 21:06 | PDOC ---
History of Present Illness - General Chief Complaint: Injury Stated Complaint: FALL Time Seen by Provider: 06/05/17 20:50 History Source: Patient Exam Limitations: Intoxication - History of Present Illness Initial Comments: 06/05/17 21:01 The patient is a 62-year-old male well known to this ED, with a significant past medical history of EtOH abuse, HTN, mesothelioma, Left clavicle fracture ( 05/17) who presents to the ED via EMS for a mechanical fall. He states that he was eating a slice of pizza while drunk and tripped over a step that he didn't see. He denies loss of consciousness, vomiting, neck pain, and weakness. He denies pain anywhere else. He denies chest pain, shortness of breath, nausea, vomiting, fevers and chills. He states he has some pain to his left arm due to his recent fracture but denies any increase in pain. Past History - Past Medical History Allergies/Adverse Reactions: Allergies Allergy/AdvReac Type Severity Reaction Status Date / Time Fish Containing Products Allergy Mild Verified 06/03/17 13:13 No Known Drug Allergies Allergy Verified 06/03/17 13:13 Home Medications: Ambulatory Orders NK [No Known Home Medication] 04/03/17 Anemia: No Asthma: No Cancer: Yes (mesothelioma) Cardiac Disorders: No CVA: No COPD: No CHF: No DVT: No Dementia: No Diabetes: No GI Disorders: No Disorders: No HTN: Yes Hypercholesterolemia: No Kidney Stones: No Liver Disease: No Psychiatric Problems: Yes (alcoholism) Seizures: No Thyroid Disease: No - Surgical History Abdominal Surgery: No Appendectomy: No Cardiac Surgery: No Cholecystectomy: No Lung Surgery: No Neurologic Surgery: No Orthopedic Surgery: No - Family Disease History Family Disease History: CA: Mother - Reproductive History Testicular Surgery: No - Immunization History TDAP Vaccination: Yes Immunization Up to Date: Yes - Suicide/Smoking/Psychosocial Hx Smoking Status: No Smoking History: Unknown if ever smoked Have you smoked in the past 12 months: No Number of Cigarettes Smoked Daily: 0 Cigars Per Day: 0 'Breaking Loose' booklet given: 11/02/16 Hx Alcohol Use: No Drug/Substance Use Hx: No Substance Use Type: Alcohol Hx Substance Use Treatment: Yes Review of Systems - Review of Systems Comments:: 06/05/17 21:03 GENERAL/CONSTITUTIONAL: No fever or chills. No weakness. HEAD, EYES, EARS, NOSE AND THROAT: No change in vision. No ear pain or discharge. No sore throat. CARDIOVASCULAR: No chest pain or shortness of breath RESPIRATORY: No cough, wheezing, or hemoptysis. GASTROINTESTINAL: No nausea, vomiting, diarrhea or constipation. GENITOURINARY: No dysuria, frequency, or change in urination. MUSCULOSKELETAL: Left shoulder pain. No neck or back pain. SKIN: No rash NEUROLOGIC: No headache, vertigo, loss of consciousness, or change in strength/ sensation. ALLERGIC/IMMUNOLOGIC: No hives or skin allergy. *Physical Exam - Vital Signs Last Vital Signs Temp Pulse Resp BP Pulse Ox 98.4 F 95 H 104/64 98 06/05/17 20:40 06/05/17 20:40 06/05/17 20:40 06/05/17 20:40 - Physical Exam Comments: 06/05/17 21:04 GENERAL: Awake, alert, and fully oriented, in no acute distress, smells of urine and alcohol HEAD: 2cm laceration over right eye, irregular. No signs of other trauma. EYES: PERRLA, EOMI, sclera anicteric, conjunctiva clear ENT: Auricles normal inspection, hearing grossly normal, nares patent, oropharynx clear without exudates. Moist mucosa NECK: Normal ROM, supple, no lymphadenopathy, JVD, or masses, no midline tenderness LUNGS: No distress, speaks full sentences, clear to auscultation bilaterally HEART: Regular rate and rhythm, normal S1 and S2, no murmurs, rubs or gallops, peripheral pulses normal and equal bilaterally. ABDOMEN: Soft, nontender, normoactive bowel sounds. No guarding, no rebound. No masses EXTREMITIES: Normal inspection, Normal range of motion, no edema. No clubbing or cyanosis. NEUROLOGICAL: Cranial nerves II through XII grossly intact. Normal speech, no focal sensorimotor deficits. 5/5 strength in all extremities SKIN: Warm, Dry, normal turgor, no rashes or lesions noted. Procedures - Laceration/Wound Repair Right Face Wound Length: 2.6 to 5.0 cm Wound Explored: clean, no foreign body present Wound's Depth, Shape: irregular Irrigated w/ Saline: Yes Betadine Prep: No Anesthesia: 1% Lidocaine Amount of Anesthetic (ccs): 3 Wound Repaired With: Sutures Suture Size/Type: 5:0 Number of Sutures: 4 Layer Closure: No Sterile Dressing Applied: Yes (bacitracin plus sterile gauze) ED Treatment Course - RADIOLOGY Radiology Studies Ordered: Category Date Time Status CERVICAL SPINE CT W/O CONTR [CT] Stat CT Scan 06/05/17 21:[address] WITHOUT CONTRAST [CT] Stat CT Scan 06/05/17 21:00 Ordered Medical Decision Making - Medical Decision Making 06/05/17 21:05 The patient is a 62-year-old male well known to this ED, with a significant past medical history of EtOH abuse, HTN, mesothelioma, Left clavicle fracture ( 05/17) here today with head trauma. Vital signs stable and normal. Cannot clear patient's c-spine due to intoxication. Patient is refusing c-collar. Will evaluate further with ct head and cervical spine. Will suture forehead laceration. 06/05/17 21:[address], refused. Patient is alert and oriented to person, place, time and situation. Patient demonstrated understanding of the risks and benefits of imaging. Patient has capacity to refuse treatment. 06/05/17 23:47 Sutures placed in forehead. Procedure tolerated without complications. Patient is intoxicated. Will wait for clinical sobriety for discharge. 06/06/17 07:02 Alert, oriented, and ambulatory. Discharged with return precautions and instructions to come back in 5 days. *DC/Admit/Observation/Transfer Diagnosis at time of Disposition: Intoxication, Laceration - Discharge Dispostion Disposition: HOME Condition at time of disposition: Good Admit: No - Referrals - Patient Instructions Printed Discharge Instructions: DI for Laceration Repair, DI for Suture Removal Additional Instructions: Please return in five days (on ThursdayJune 10) to have your sutures removed. Please return if you have any new, worsening or concerning symptoms. - Post Discharge Activity
--- NOTE | 2017-06-06 05:45 | PDOC ---
Attending Attestation - Resident Resident Name: Kelvin Kee - ED Attending Attestation I have performed the following: I have examined & evaluated the patient, The case was reviewed & discussed with the resident, I agree w/resident's findings & plan - HPI HPI: 06/08/17 03:28 Pt comes with alcohol intox - Physicial Exam PE: 06/08/17 03:28 Pt comes with alcohol intox. Agree with resident's exam. - Medical Decision Making 06/08/17 03:28 Pt woke up in the AM and walked out once he became relatively sober.
[2017-06-06 07:04] VITALS: BP 124/82; PULSE 92; TEMP 97.7
== END 2017-06-06 07:04 | disposition home or self-care (01) ==
LOC: JER 20:31
PROC: 0JQ10ZZ Repair Face Subcutaneous Tissue and Fascia, Open Approach (ICD-10-PCS; principal; 2017-06-05)
DX: S01.81XA Laceration without foreign body of other part of head, initial encounter (principal); F10.220 Alcohol dependence with intoxication, uncomplicated; W10.8XXA Fall (on) (from) other stairs and steps, initial encounter; Y93.89 Activity, other specified; Y92.512 Supermarket, store or market as the place of occurrence of the external cause; Y99.8 Other external cause status; I10 Essential (primary) hypertension; C45.9 Mesothelioma, unspecified; Z59.0 Homelessness
CPT/HCPCS: 99282-25

== ENCOUNTER 2017-06-08 17:22 | Emergency (ER) | payer OTHER ==
--- NOTE | 2017-06-08 17:57 | PDOC ---
Attending Attestation - HPI HPI: 06/08/17 20:29 The patient is a 62 year old male, well known to the ED for recurrent visits for alcohol intoxication, brought in by EMS for alcohol intoxication today. Patient was found lying down outdoors. He denies any physical complaints on evaluation. - Physicial Exam PE: GENERAL: Awake. Clinically intoxicated. Disheveled. HEAD: No signs of trauma EYES: PERRLA, EOMI, sclera anicteric, conjunctiva clear ENT: Auricles normal inspection, hearing grossly normal, nares patent, oropharynx clear without exudates. Moist mucosa NECK: Normal ROM, supple, no lymphadenopathy, JVD, or masses LUNGS: Breath sounds equal, clear to auscultation bilaterally. No wheezes, and no crackles HEART: Regular rate and rhythm, normal S1 and S2, no murmurs, rubs or gallops ABDOMEN: Soft, nontender, normoactive bowel sounds. No guarding, no rebound. No masses EXTREMITIES: Normal range of motion, no edema. No clubbing or cyanosis. No cords, erythema, or tenderness BACK: No midline spinal tenderness in cervical/thoracic/lumbar region NEUROLOGICAL: Slurred speech. Cranial nerves intact. Gait deferred. SKIN: Warm, Dry, normal turgor, no rashes or lesions noted. - Medical Decision Making 06/08/17 20:29 Documentation prepared by Carolyn Cox, acting as faculty i on call medical assistant for Fernie Rosenthal MD. <Carolyn Cox - Last Filed: 06/08/17 20:29> - Resident Resident Name: Anabell Dover - ED Attending Attestation I have performed the following: I have examined & evaluated the patient, The case was reviewed & discussed with the resident, I agree w/resident's findings & plan, Exceptions are as noted - Medical Decision Making 06/08/17 20:24 62-year-old male well-known to this emergency department presents with intoxication. No evidence of trauma on initial evaluation, will reevaluate the patient one more clinically sober. 06/09/17 02:30 Pt clinically sober. Has no currently complaints. Tolerating PO, ambulating with steady gait. I discussed the physical exam findings, ancillary test results and final diagnoses with the patient. I answered all of the patient's questions. The patient was satisfied with the care received and felt comfortable with the discharge plan and treatment plan. The patient will call their primary care physician within 24 hours to arrange follow-up and will return to the Emergency Department with any new, persistent or worsening symptoms. <Fernie Rosenthal - Last Filed: 06/09/17 02:32> Discharge Disposition - Discharge Dispostion Last Admission D/C Date: 04/01/17 Admit: No - Transfer to Acute Care Facility Transfer comment: 06/09/17 02:31 I, Dr. Fernie Rosenthal MD, attest that this document has been prepared under my direction and personally reviewed by me in its entirety. I further attest, that it accurately reflects all work, treatment, procedures and medical decision -making performed by me. <Fernie Rosenthal - Last Filed: 06/09/17 02:32> - Diagnosis Intoxication - Discharge Dispostion Disposition: HOME Condition at time of disposition: Stable - Patient Instructions Printed Discharge Instructions: DI for Alcohol Abuse Additional Instructions: Follow-up with a primary doctor within 1 week. Return to the emergency department if you have any new, worsening or concerning symptoms.
[2017-06-08 17:59] VITALS: BP 103/66; PULSE 89; TEMP 97.6; BMI 32.5
--- NOTE | 2017-06-08 18:43 | PDOC ---
History of Present Illness - General Chief Complaint: Alcohol intoxication Stated Complaint: Alcohol intoxication Time Seen by Provider: 06/08/17 17:55 History Source: Patient, EMS Exam Limitations: Intoxication - History of Present Illness Initial Comments: This is a 62 YOM with h/o alcoholism with frequent ED visits with intoxication, recent clavicle fracture, who presents BIBA to the ED with EMS report of alcohol intoxication and bilateral knee pain. EMS was called to evaluate Mr. De Leon at [facility] where he was on the ground. He was intoxicated for them en route. Here in the ED, he himself denies any current pain. He also specifically denies knee pain when asked, and denies chest pain, shortness of breath, or headache. He is otherwise too intoxicated to provide any recent or current clinical history. Past History - Past Medical History Allergies/Adverse Reactions: Allergies Allergy/AdvReac Type Severity Reaction Status Date / Time Fish Containing Products Allergy Mild Verified 06/08/17 17:42 No Known Drug Allergies Allergy Verified 06/08/17 17:42 Home Medications: Ambulatory Orders NK [No Known Home Medication] 04/03/17 Anemia: No Asthma: No Cancer: Yes (mesothelioma) Cardiac Disorders: No CVA: No COPD: No CHF: No DVT: No Dementia: No Diabetes: No GI Disorders: No Disorders: No HTN: Yes Hypercholesterolemia: No Kidney Stones: No Liver Disease: No Psychiatric Problems: Yes (alcoholism) Seizures: No Thyroid Disease: No - Surgical History Abdominal Surgery: No Appendectomy: No Cardiac Surgery: No Cholecystectomy: No Lung Surgery: No Neurologic Surgery: No Orthopedic Surgery: No - Family Disease History Family Disease History: CA: Mother - Reproductive History Testicular Surgery: No - Immunization History TDAP Vaccination: Yes Immunization Up to Date: Yes - Suicide/Smoking/Psychosocial Hx Smoking Status: No Smoking History: Unknown if ever smoked Have you smoked in the past 12 months: No Number of Cigarettes Smoked Daily: 0 Cigars Per Day: 0 'Breaking Loose' booklet given: 11/02/16 Hx Alcohol Use: No Drug/Substance Use Hx: No Substance Use Type: Alcohol Hx Substance Use Treatment: Yes Review of Systems - Review of Systems Able to Perform ROS?: No (intoxicated) *Physical Exam - Vital Signs Last Vital Signs Temp Pulse Resp BP Pulse Ox 97.6 F 89 18 103/66 96 06/08/17 17:43 06/08/17 17:43 06/08/17 17:43 06/08/17 17:43 06/08/17 17:43 - Physical Exam General Appearance: Yes: Nourished, Disheveled, Other (unkempt, odor of alcohol present, appears intoxicated, clothing dirty, sitting in wheelchair, moving all extremities, attempts to answer questions after some latency between question and answer, but unable to articulate most words 2/2 intoxication). No: Apparent Distress HEENT: positive: EOMI, DOUGLAS, Normal Voice, Hearing Grossly Normal, Other (2-3 cm healing laceration with sutures in place just superior to right eyebrow). negative: Scleral Icterus (R), Scleral Icterus (L), Nasal Congestion Neck: positive: Trachea midline, Supple. negative: Tender, Rigid Respiratory/Chest: positive: Lungs Clear, Normal Breath Sounds. negative: Respiratory Distress, Crackles, Rhonchi, Stridor, Wheezing Cardiovascular: positive: Regular Rhythm, Regular Rate. negative: Murmur Gastrointestinal/Abdominal: positive: Normal Bowel Sounds, Soft, Protuberent. negative: Tender, Organomegaly, Pulsatile Mass, Guarding Musculoskeletal: positive: Normal Inspection. negative: Decreased Range of Motion, Vertebral Tenderness Extremity: positive: Normal Capillary Refill, Normal Inspection, Normal Range of Motion. negative: Tender, Cyanosis Integumentary: positive: Normal Color, Dry, Warm. 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
== END 2017-06-09 07:20 | disposition home or self-care (01) ==
LOC: JER 17:22
DX: F10.120 Alcohol abuse with intoxication, uncomplicated (principal); C45.9 Mesothelioma, unspecified
CPT/HCPCS: 99283-25

== ENCOUNTER 2017-06-09 21:09 | Emergency (ER) | payer OTHER ==
[2017-06-09 23:07] VITALS: BMI 36.9
--- NOTE | 2017-06-09 23:31 | PDOC ---
History of Present Illness - General Chief Complaint: Alcohol intoxication Stated Complaint: Alcohol intoxication Time Seen by Provider: 06/09/17 22:21 History Source: Patient - History of Present Illness Initial Comments: 06/09/17 23:26 BIBA for ETOH intoxication. patient reports drinking less than a pint of vodka prior to arrival. patient alert sittingin wheel chair asking for food. no head trauma. healing laceration noted. Past History - Past Medical History Allergies/Adverse Reactions: Allergies Allergy/AdvReac Type Severity Reaction Status Date / Time Fish Containing Products Allergy Mild Verified 06/09/17 23:07 No Known Drug Allergies Allergy Verified 06/09/17 23:07 Home Medications: Ambulatory Orders NK [No Known Home Medication] 04/03/17 Anemia: No Asthma: No Cancer: Yes (mesothelioma) Cardiac Disorders: No CVA: No COPD: No CHF: No DVT: No Dementia: No Diabetes: No GI Disorders: No Disorders: No HTN: Yes Hypercholesterolemia: No Kidney Stones: No Liver Disease: No Psychiatric Problems: Yes (alcoholism) Seizures: No Thyroid Disease: No - Surgical History Abdominal Surgery: No Appendectomy: No Cardiac Surgery: No Cholecystectomy: No Lung Surgery: No Neurologic Surgery: No Orthopedic Surgery: No - Family Disease History Family Disease History: CA: Mother - Reproductive History Testicular Surgery: No - Immunization History TDAP Vaccination: Yes Immunization Up to Date: Yes - Suicide/Smoking/Psychosocial Hx Smoking Status: No Smoking History: Never smoked Have you smoked in the past 12 months: No Number of Cigarettes Smoked Daily: 0 Cigars Per Day: 0 Information on smoking cessation initiated: No 'Breaking Loose' booklet given: 11/02/16 Hx Alcohol Use: Yes Drug/Substance Use Hx: No Substance Use Type: Alcohol Hx Substance Use Treatment: Yes Review of Systems - Review of Systems Able to Perform ROS?: Yes Is the patient limited Nepali proficient: No Neurological: No: Symptoms reported, See HPI, Headache, Numbness, Paresthesia, Pre-Existing Deficit, Seizure, Tingling, Tremors, Weakness, Unsteady Gait, Ataxia, Dizziness, Other Psychiatric: No: Anxiety, Depression, Frequent Crying, Stressors, Sleep Pattern Change, Emotional Problems, Mood Swings, Change in Appetite, Other *Physical Exam - Vital Signs Last Vital Signs Temp Pulse Resp BP Pulse Ox 97.0 F L 89 19 138/89 97 06/09/17 23:04 06/09/17 23:04 06/09/17 23:04 06/09/17 23:04 06/09/17 23:04 - Physical Exam General Appearance: Yes: Disheveled, Alcohol on Breath HEENT: positive: Other (dried sutures to forehead. normocephalic) Extremity: positive: Normal Capillary Refill Integumentary: positive: Normal Color, Dry, Warm Neurologic: positive: Fully Oriented, Alert, Normal Mood/Affect Medical Decision Making - Medical Decision Making 06/09/17 23:31 A: ETOH abuse; suture removal P; await sobriety 06/10/17 00:11 patient alert ox3. requesting to be d/c home via. 4 stiches removed from forahead. mild serosanguinous drainage noted. no surrounding erythema. *DC/Admit/Observation/Transfer Diagnosis at time of Disposition: Abuse, drug or alcohol, Visit for suture removal Alcohol dependence Qualifiers: Substance use status: uncomplicated Qualified Code(s): F10.20 - Alcohol dependence, uncomplicated - Discharge Dispostion Disposition: HOME Condition at time of disposition: Fair - Referrals - Patient Instructions Printed Discharge Instructions: DI for Alcohol Abuse, How to Care for a Surgical Wound - Post Discharge Activity
[2017-06-10 00:45] VITALS: BP 150/84; PULSE 88; TEMP 98.1
--- NOTE | 2017-06-10 01:40 | PDOC ---
*Physical Exam - Vital Signs Last Vital Signs Temp Pulse Resp BP Pulse Ox 98.1 F 88 20 150/84 96 06/10/17 00:44 06/10/17 00:44 06/10/17 00:44 06/10/17 00:44 06/10/17 00:44 Medical Decision Making - Medical Decision Making 06/10/17 01:39 agree with care from MICHAEL Casanova *DC/Admit/Observation/Transfer Diagnosis at time of Disposition: Abuse, drug or alcohol, Visit for suture removal Alcohol dependence Qualifiers: Substance use status: uncomplicated Qualified Code(s): F10.20 - Alcohol dependence, uncomplicated - Discharge Dispostion Disposition: HOME Condition at time of disposition: Fair - Referrals - Patient Instructions Printed Discharge Instructions: How to Care for a Surgical Wound, DI for Alcohol Abuse - Post Discharge Activity
== END 2017-06-10 07:31 | disposition home or self-care (01) ==
LOC: JER 21:09
DX: F10.220 Alcohol dependence with intoxication, uncomplicated (principal); I10 Essential (primary) hypertension; C45.9 Mesothelioma, unspecified; Z48.02 Encounter for removal of sutures
CPT/HCPCS: 99282-25

== ENCOUNTER 2017-06-13 18:32 | Emergency (ER) | payer OTHER ==
--- NOTE | 2017-06-13 18:42 | PDOC ---
History of Present Illness - General History Source: Patient Exam Limitations: Intoxication - History of Present Illness Initial Comments: 06/13/17 19:01 The patient is a 62 year old male, with a significant past medical history of alcoholism, who presents to the emergency department via EMS, with alcohol intoxication. As per EMS, [place] The patient reports drinking a pint of vodka today. He denies any recent fevers, chills, headache or dizziness. He denies any recent nausea, vomit, diarrhea or constipation. He denies any recent chest pain or shortness of breath. He denies any recent dysuria, frequency, urgency or hematuria. Allergies: Fish containing products. Past surgical history: None reported. Social History: Alcoholic. <Susu Gonzales - Last Filed: 06/13/17 19:58> <Robson Ball - Last Filed: 06/14/17 02:08> <Lorri Kumar - Last Filed: 06/16/17 00:43> - General Chief Complaint: Back Pain Stated Complaint: INTOX Time Seen by Provider: 06/13/17 18:38 Past History <Susu Gonzales - Last Filed: 06/13/17 19:58> - Past Medical History Anemia: No Asthma: No Cancer: Yes (mesothelioma) Cardiac Disorders: No CVA: No COPD: No CHF: No DVT: No Dementia: No Diabetes: No GI Disorders: No Disorders: No HTN: Yes Hypercholesterolemia: No Kidney Stones: No Liver Disease: No Psychiatric Problems: Yes (alcoholism) Seizures: No Thyroid Disease: No - Surgical History Abdominal Surgery: No Appendectomy: No Cardiac Surgery: No Cholecystectomy: No Lung Surgery: No Neurologic Surgery: No Orthopedic Surgery: No - Family Disease History Family Disease History: CA: Mother - Reproductive History Testicular Surgery: No - Immunization History TDAP Vaccination: Yes Immunization Up to Date: Yes - Suicide/Smoking/Psychosocial Hx Smoking Status: No Smoking History: Never smoked Have you smoked in the past 12 months: No Number of Cigarettes Smoked Daily: 0 Cigars Per Day: 0 'Breaking Loose' booklet given: 11/02/16 Hx Alcohol Use: Yes Drug/Substance Use Hx: No Substance Use Type: Alcohol Hx Substance Use Treatment: Yes <Robson Ball - Last Filed: 06/14/17 02:08> <Lorri Kumar - Last Filed: 06/16/17 00:43> - Past Medical History Allergies/Adverse Reactions: Allergies Allergy/AdvReac Type Severity Reaction Status Date / Time Fish Containing Products Allergy Mild Verified 06/13/17 18:36 No Known Drug Allergies Allergy Verified 06/13/17 18:36 Home Medications: Ambulatory Orders NK [No Known Home Medication] 04/03/17 Review of Systems - Review of Systems Able to Perform ROS?: Yes Comments:: 06/13/17 19:02 CONSTITUTIONAL: No fever, no chills, no fatigue EYES: No visual changes ENT: No ear pain, no sore throat CARDIOVASCULAR: No chest pain, no palpitations RESPIRATORY: No cough, no SOB GI: No abdominal pain, no nausea, no vomiting, no constipation, no diarrhea GENITOURINARY: No dysuria, no frequency, no hematuria MUSKULOSKELETAL: No backpain, no joint pain, no myalgias SKIN: No rash NEURO: No headache All Other Systems: Reviewed and Negative <Susu Gonzales - Last Filed: 06/13/17 19:58> *Physical Exam - Vital Signs Last Vital Signs Temp Pulse Resp BP Pulse Ox 98.3 F 87 18 95/60 97 06/13/17 18:37 06/13/17 18:37 06/13/17 18:37 06/13/17 18:37 06/13/17 18:37 - Physical Exam Comments: 06/13/17 19:58 CONSTITUTIONAL: +Awake, alert, alcohol on breath. Well-appearing; well-nourished ; in no apparent distress HEAD: +Scabbed scaly laceration above the right eyebrow. +Face plethoric. Normocephalic. EYES: PERRL; EOM intact ENMT: External appears normal; normal oropharynx NECK: Supple; non-tender; no cervical lymphadenopathy CARD: Normal S1, S2; no murmurs, rubs, or gallops RESP: Normal chest excursion with respiration; breath sounds clear and equal bilaterally; no wheezes, rhonchi, or rales ABD: Soft, non-distended; non-tender; no palpable organomegaly, no palpable hernias EXT: Normal ROM in all four extremities; non-tender to palpation; distal pulses intact SKIN: Warm, dry, no rash NEURO: + Awake, alert. Slurred speech; slurred speech. Needs assistance when transferring from wheelchair to bed. Moved all extremities. <Susu Gonzales - Last Filed: 06/13/17 19:58> - Vital Signs Last Vital Signs Temp Pulse Resp BP Pulse Ox 98.3 F 90 16 102/54 93 L 06/13/17 18:37 06/14/17 03:51 06/14/17 03:51 06/14/17 03:51 06/14/17 03:51 <Lorri Kumar - Last Filed: 06/16/17 00:43> ED Treatment Course - ADDITIONAL ORDERS Additional order review: Laboratory Results 06/13/17 18:57 POC Glucometer [id number] 06/13/17 18:57 POC Glucometer [id number] <Lorri Kumar - Last Filed: 06/16/17 00:43> Medical Decision Making - Medical Decision Making 06/14/17 02:08 Patient is a well-known 62-year-old male with history of EtOH abuse who presents with acute alcohol intoxication. No evidence of acute head injuries present. Will observe until clinical sobriety, we'll discharge. <Robson Ball - Last Filed: 06/14/17 02:08> - Medical Decision Making Pt walking about this AM , and is requesting meds for his low back pain. I will treat with percocet. Pt will be discahrged home by the day ER team. <Lorri Kumar - Last Filed: 06/16/17 00:43> *DC/Admit/Observation/Transfer - Attestations Scribe Attestion: 06/13/17 19:03 Documentation prepared by Susu Gonzales, acting as medical reimbursement specialist for Robson Ball MD. <Susu Gonzales - Last Filed: 06/13/17 19:58> <Robson Ball - Last Filed: 06/14/17 02:08> - Discharge Dispostion Admit: No <Lorri Kumar - Last Filed: 06/16/17 00:43> Diagnosis at time of Disposition: Intoxication, Alcohol dependence - Discharge Dispostion Disposition: HOME Condition at time of disposition: Improved - Patient Instructions Printed Discharge Instructions: DI for Alcohol Abuse
[2017-06-13 19:00] VITALS: BMI 36.9
[2017-06-14 08:39] VITALS: BP 100/66; PULSE 78; TEMP 98
== END 2017-06-14 08:00 | disposition home or self-care (01) ==
LOC: JER 18:32
DX: F10.220 Alcohol dependence with intoxication, uncomplicated (principal); I10 Essential (primary) hypertension; C45.9 Mesothelioma, unspecified; Z59.0 Homelessness
CPT/HCPCS: 99281-25

== ENCOUNTER 2017-06-17 16:18 | Emergency (ER) | payer OTHER | END 2017-06-17 17:23 | disposition left against medical advice (07) | LOC: JER 16:18 | DX: Z53.21 Procedure and treatment not carried out due to patient leaving prior to being seen by health care provider (principal) | CPT/HCPCS: 99281-25 ==

== ENCOUNTER 2017-06-19 15:11 | Emergency (ER) | payer OTHER ==
[2017-06-19 15:28] VITALS: BP 124/75; PULSE 99; TEMP 97.8; BMI 34.9
--- NOTE | 2017-06-19 15:29 | PDOC ---
History of Present Illness - General Stated Complaint: PAIN Time Seen by Provider: 06/19/17 15:19 - History of Present Illness Initial Comments: 06/19/17 15:20 Mr. De Leon is a 62 yo male w/ significant pmh of alcohol abuse BIBA. When asked why he is in the emergency room today he reports "because i'm intoxicated." He currently has no complaints but reports that it is very cold outside and he is attempting to keep warm. The patient denies chest pain, shortness of breath, headache and dizziness. Denies fever, chills, nausea, vomit, diarrhea and constipation. Denies dysuria, frequency, urgency and hematuria. Allergies: Fish products Past History - Past Medical History Allergies/Adverse Reactions: Allergies Allergy/AdvReac Type Severity Reaction Status Date / Time Fish Containing Products Allergy Mild Verified 06/13/17 18:36 No Known Drug Allergies Allergy Verified 06/13/17 18:36 Home Medications: Ambulatory Orders NK [No Known Home Medication] 04/03/17 Anemia: No Asthma: No Cancer: Yes (mesothelioma) Cardiac Disorders: No CVA: No COPD: No CHF: No DVT: No Dementia: No Diabetes: No GI Disorders: No Disorders: No HTN: Yes Hypercholesterolemia: No Kidney Stones: No Liver Disease: No Psychiatric Problems: Yes (alcoholism) Seizures: No Thyroid Disease: No - Surgical History Abdominal Surgery: No Appendectomy: No Cardiac Surgery: No Cholecystectomy: No Lung Surgery: No Neurologic Surgery: No Orthopedic Surgery: No - Family Disease History Family Disease History: CA: Mother - Reproductive History Testicular Surgery: No - Immunization History TDAP Vaccination: Yes Immunization Up to Date: Yes - Suicide/Smoking/Psychosocial Hx Smoking Status: No Smoking History: Never smoked Have you smoked in the past 12 months: No Number of Cigarettes Smoked Daily: 0 Cigars Per Day: 0 'Breaking Loose' booklet given: 11/02/16 Hx Alcohol Use: Yes Drug/Substance Use Hx: No Substance Use Type: Alcohol Hx Substance Use Treatment: Yes Review of Systems - Review of Systems Comments:: 06/19/17 15:29 GENERAL/CONSTITUTIONAL: No fever or chills. No weakness. HEAD, EYES, EARS, NOSE AND THROAT: No change in vision. No ear pain or discharge. No sore throat. CARDIOVASCULAR: No chest pain or shortness of breath RESPIRATORY: No cough, wheezing, or hemoptysis. GASTROINTESTINAL: No nausea, vomiting, diarrhea or constipation. GENITOURINARY: No dysuria, frequency, or change in urination. MUSCULOSKELETAL: No joint or muscle swelling or pain. No neck or back pain. SKIN: No rash NEUROLOGIC: No headache, vertigo, loss of consciousness, or change in strength/ sensation. ENDOCRINE: No increased thirst. No abnormal weight change HEMATOLOGIC/LYMPHATIC: No anemia, easy bleeding, or history of blood clots. ALLERGIC/IMMUNOLOGIC: No hives or skin allergy. *Physical Exam - Physical Exam Comments: 06/19/17 15:29 GENERAL: Awake, alert, and fully oriented, in no acute distress HEAD: +Well healing small abbrasion to R tenriism approx. 1cm in length. Normocephalic, atraumatic EYES: PERRLA, EOMI, sclera anicteric, conjunctiva clear ENT: Auricles normal inspection, hearing grossly normal, nares patent, oropharynx clear without exudates. Moist mucosa NECK: Normal ROM, supple, no lymphadenopathy, JVD, or masses LUNGS: No distress, speaks full sentences, clear to auscultation bilaterally HEART: Regular rate and rhythm, normal S1 and S2, no murmurs, rubs or gallops, peripheral pulses normal and equal bilaterally. ABDOMEN: Soft, nontender, normoactive bowel sounds. No guarding, no rebound. No masses EXTREMITIES: Normal inspection, Normal range of motion, no edema. No clubbing or cyanosis. NEUROLOGICAL: Cranial nerves II through XII grossly intact. Normal speech, normal gait, no focal sensorimotor deficits SKIN: Warm, Dry, normal turgor, no rashes or lesions noted. Medical Decision Making - Medical Decision Making 06/19/17 18:26 Patient observed to pass PO challenge, is speaking clearly and ambulating without difficulty. Clinically sober and would like to go home. Will d/c with instructions to follow-up as needed for further evaluation. *DC/Admit/Observation/Transfer Diagnosis at time of Disposition: Intoxication - Discharge Dispostion Disposition: HOME - Referrals - Patient Instructions Printed Discharge Instructions: DI for Alcohol Abuse Additional Instructions: Please return if any pain, altered mental status, or any other concerning symptoms. - Post Discharge Activity
--- NOTE | 2017-06-19 16:19 | PDOC ---
Attending Attestation - Resident Resident Name: Kelvin Kee - ED Attending Attestation I have performed the following: I have examined & evaluated the patient, The case was reviewed & discussed with the resident, I agree w/resident's findings & plan, Exceptions are as noted - HPI HPI: 06/19/17 16:18 62y M hx of etoh abuse, mesothelioma, dvt, presents with intoxication. pt well known to me, no other complaints. exam at baseline no distress, well appearing no signs of tremulousness, normal gait not clnically intoxoicated pt requesting food will dc with pmd fu - Physicial Exam PE: 06/19/17 20:13 see above - Medical Decision Making 06/19/17 20:13 see above
== END 2017-06-19 18:30 | disposition home or self-care (01) ==
LOC: JER 15:11
DX: F10.20 Alcohol dependence, uncomplicated (principal); I10 Essential (primary) hypertension; C45.9 Mesothelioma, unspecified; Z59.0 Homelessness
CPT/HCPCS: 99281-25

== ENCOUNTER 2017-06-19 23:46 | Emergency (ER) | payer OTHER ==
[2017-06-20 02:42] VITALS: TEMP 96.8; BMI 38.0
--- NOTE | 2017-06-20 05:05 | PDOC ---
History of Present Illness - General History Source: Patient Exam Limitations: No Limitations - History of Present Illness Initial Comments: 06/20/17 05:06 The patient is a 62 year old male, with a significant past medical history of alcoholism, who presents to the emergency department via EMS, with alcohol intoxication. As per EMS, the patient fell. The patient reports drinking a pint of vodka today. The patient was discharged at 7pm today and returned to [facility] ER at 12am. He denies any recent fevers, chills, headache or dizziness. He denies any recent nausea, vomit, diarrhea or constipation. He denies any recent chest pain or shortness of breath. He denies any recent dysuria, frequency, urgency or hematuria. Allergies: Fish containing products. Past surgical history: None reported. Social History: Alcoholic. 06/20/17 05:09 <Susu Gonzales - Last Filed: 06/20/17 05:06> <Lorri Kumar - Last Filed: 06/20/17 20:29> - General Chief Complaint: Alcohol intoxication Stated Complaint: FALL Time Seen by Provider: 06/20/17 02:37 Past History <Susu Gonzales - Last Filed: 06/20/17 05:06> - Past Medical History Anemia: No Asthma: No Cancer: Yes (mesothelioma) Cardiac Disorders: No CVA: No COPD: No CHF: No DVT: No Dementia: No Diabetes: No GI Disorders: No Disorders: No HTN: Yes Hypercholesterolemia: No Kidney Stones: No Liver Disease: No Psychiatric Problems: Yes (alcoholism) Seizures: No Thyroid Disease: No - Surgical History Abdominal Surgery: No Appendectomy: No Cardiac Surgery: No Cholecystectomy: No Lung Surgery: No Neurologic Surgery: No Orthopedic Surgery: No - Family Disease History Family Disease History: CA: Mother - Reproductive History Testicular Surgery: No - Immunization History TDAP Vaccination: Yes Immunization Up to Date: Yes - Suicide/Smoking/Psychosocial Hx Smoking Status: No Smoking History: Never smoked Have you smoked in the past 12 months: No Number of Cigarettes Smoked Daily: 0 Cigars Per Day: 0 Information on smoking cessation initiated: No 'Breaking Loose' booklet given: 11/02/16 Hx Alcohol Use: Yes Drug/Substance Use Hx: No Substance Use Type: Alcohol Hx Substance Use Treatment: Yes <Lorri Kumar - Last Filed: 06/20/17 20:29> - Past Medical History Allergies/Adverse Reactions: Allergies Allergy/AdvReac Type Severity Reaction Status Date / Time Fish Containing Products Allergy Mild Verified 06/20/17 17:47 No Known Drug Allergies Allergy Verified 06/20/17 17:47 Home Medications: Ambulatory Orders NK [No Known Home Medication] 04/03/17 Review of Systems - Review of Systems Able to Perform ROS?: Yes Comments:: 06/20/17 05:07 GENERAL/CONSTITUTIONAL: No fever or chills. No weakness. HEAD, EYES, EARS, NOSE AND THROAT: No change in vision. No ear pain or discharge. No sore throat. CARDIOVASCULAR: No chest pain or shortness of breath. RESPIRATORY: No cough, wheezing, or hemoptysis. GASTROINTESTINAL: No nausea, vomiting, diarrhea or constipation. GENITOURINARY: No dysuria, frequency, or change in urination. MUSCULOSKELETAL: No joint or muscle swelling or pain. No neck or back pain. SKIN: No rash NEUROLOGIC: No headache, vertigo, loss of consciousness, or change in strength/ sensation. ENDOCRINE: No increased thirst. No abnormal weight change. HEMATOLOGIC/LYMPHATIC: No anemia, easy bleeding, or history of blood clots. ALLERGIC/IMMUNOLOGIC: No hives or skin allergy. All Other Systems: Reviewed and Negative <Susu Gonzales - Last Filed: 06/20/17 05:06> *Physical Exam - Vital Signs Last Vital Signs Temp Pulse Resp BP Pulse Ox 96.8 F L 75 18 151/79 97 06/20/17 00:00 06/20/17 00:00 06/20/17 00:00 06/20/17 00:00 06/20/17 00:00 - Physical Exam Comments: 06/20/17 05:08 GENERAL: Awake, alert, and fully oriented, in no acute distress HEAD: No signs of trauma EYES: PERRLA, EOMI, sclera anicteric, conjunctiva clear ENT: Auricles normal inspection, hearing grossly normal, nares patent, oropharynx clear without exudates. Moist mucosa NECK: Normal ROM, supple, no lymphadenopathy, JVD, or masses LUNGS: Breath sounds equal, clear to auscultation bilaterally. No wheezes, and no crackles HEART: Regular rate and rhythm, normal S1 and S2, no murmurs, rubs or gallops ABDOMEN: Soft, nontender, normoactive bowel sounds. No guarding, no rebound. No masses EXTREMITIES: Normal range of motion, no edema. No clubbing or cyanosis. No cords, erythema, or tenderness NEUROLOGICAL: Cranial nerves II through XII grossly intact. Normal speech, normal gait SKIN: Warm, Dry, normal turgor, no rashes or lesions noted. <Susu Gonzales - Last Filed: 06/20/17 05:06> - Vital Signs Last Vital Signs Temp Pulse Resp BP Pulse Ox 96.8 F L 75 18 151/79 97 06/20/17 00:00 06/20/17 00:00 06/20/17 00:00 06/20/17 00:00 06/20/17 00:00 <Lorri Kumar - Last Filed: 06/20/17 20:29> Medical Decision Making - Medical Decision Making 06/20/17 07:06 Pt is alcohol intox; discharged last night at 7PM; retunred at midlight. Resting in the ER. No new complaints. Pt will be turned over to the day team. <Lorri Kumar - Last Filed: 06/20/17 20:29> *DC/Admit/Observation/Transfer - Attestations Scribe Attestion: 06/20/17 05:08 Documentation prepared by Susu Gonzales, acting as medical affairs specialist for Lorri Kumar MD. <Susu Gonzales - Last Filed: 06/20/17 05:06> <Lorri Kumar - Last Filed: 06/20/17 20:29> Diagnosis at time of Disposition: Intoxication - Discharge Dispostion Disposition: HOME Condition at time of disposition: Fair - Patient Instructions Printed Discharge Instructions: DI for Alcohol Abuse Additional Instructions: Please return if any altered mental status, fever, pain, or other concerning symptoms.
--- NOTE | 2017-06-20 09:55 | PDOC ---
*Physical Exam - Vital Signs Last Vital Signs Temp Pulse Resp BP Pulse Ox 96.8 F L 75 18 151/79 97 06/20/17 00:00 06/20/17 00:00 06/20/17 00:00 06/20/17 00:00 06/20/17 00:00 Medical Decision Making - Medical Decision Making 06/20/17 09:54 Care taken over from Dr. Kumar. Patient passed PO challenge, noted to have clear speech and ambulate without difficulty. Clinically sober. Patient would like to go home. Discharging. *DC/Admit/Observation/Transfer Diagnosis at time of Disposition: Intoxication - Discharge Dispostion Disposition: HOME Condition at time of disposition: Fair - Referrals - Patient Instructions Printed Discharge Instructions: DI for Alcohol Abuse Additional Instructions: Please return if any altered mental status, fever, pain, or other concerning symptoms. - Post Discharge Activity
[2017-06-20 09:56] VITALS: BP 155/87; PULSE 89
== END 2017-06-20 09:56 | disposition home or self-care (01) ==
LOC: JER 23:46 → SUPCPDRO 23:46 → JER 06-20 09:56
DX: F10.220 Alcohol dependence with intoxication, uncomplicated (principal); I10 Essential (primary) hypertension; C45.9 Mesothelioma, unspecified; Z59.0 Homelessness; W19.XXXA Unspecified fall, initial encounter; Y93.89 Activity, other specified; Y92.89 Other specified places as the place of occurrence of the external cause; Y99.8 Other external cause status
CPT/HCPCS: 99283-25

== ENCOUNTER 2017-06-20 17:32 | Emergency (ER) | payer OTHER ==
[2017-06-20 17:47] VITALS: BP 148/95; PULSE 95; TEMP 97; BMI 42.5
--- NOTE | 2017-06-20 17:56 | PDOC ---
History of Present Illness - General Chief Complaint: Back Pain Stated Complaint: BACK PAIN Time Seen by Provider: 06/20/17 17:49 - History of Present Illness Initial Comments: 06/20/17 18:24 Mr. De Leon is a 62 yo male w/ pmh of alcohol abuse BIBA. When asked what brings him in today he replies "alcohol." He currently has no complaints. The patient denies chest pain, shortness of breath, headache and dizziness. Denies fever, chills, nausea, vomit, diarrhea and constipation. Denies dysuria, frequency, urgency and hematuria. Allergies:Fish products. Past History - Past Medical History Allergies/Adverse Reactions: Allergies Allergy/AdvReac Type Severity Reaction Status Date / Time Fish Containing Products Allergy Mild Verified 06/20/17 17:47 No Known Drug Allergies Allergy Verified 06/20/17 17:47 Home Medications: Ambulatory Orders NK [No Known Home Medication] 04/03/17 Anemia: No Asthma: No Cancer: Yes (mesothelioma) Cardiac Disorders: No CVA: No COPD: No CHF: No DVT: No Dementia: No Diabetes: No GI Disorders: No Disorders: No HTN: Yes Hypercholesterolemia: No Kidney Stones: No Liver Disease: No Psychiatric Problems: Yes (alcoholism) Seizures: No Thyroid Disease: No - Surgical History Abdominal Surgery: No Appendectomy: No Cardiac Surgery: No Cholecystectomy: No Lung Surgery: No Neurologic Surgery: No Orthopedic Surgery: No - Family Disease History Family Disease History: CA: Mother - Reproductive History Testicular Surgery: No - Immunization History TDAP Vaccination: Yes Immunization Up to Date: Yes - Suicide/Smoking/Psychosocial Hx Smoking Status: No Smoking History: Never smoked Have you smoked in the past 12 months: No Number of Cigarettes Smoked Daily: 0 Cigars Per Day: 0 Information on smoking cessation initiated: No 'Breaking Loose' booklet given: 11/02/16 Hx Alcohol Use: No Drug/Substance Use Hx: No Substance Use Type: Alcohol Hx Substance Use Treatment: Yes Review of Systems - Review of Systems Comments:: 06/20/17 18:45 GENERAL/CONSTITUTIONAL: No fever or chills. No weakness. HEAD, EYES, EARS, NOSE AND THROAT: No change in vision. No ear pain or discharge. No sore throat. CARDIOVASCULAR: No chest pain or shortness of breath RESPIRATORY: No cough, wheezing, or hemoptysis. GASTROINTESTINAL: No nausea, vomiting, diarrhea or constipation. GENITOURINARY: No dysuria, frequency, or change in urination. MUSCULOSKELETAL: No joint or muscle swelling or pain. No neck or back pain. SKIN: No rash NEUROLOGIC: No headache, vertigo, loss of consciousness, or change in strength/ sensation. ENDOCRINE: No increased thirst. No abnormal weight change HEMATOLOGIC/LYMPHATIC: No anemia, easy bleeding, or history of blood clots. ALLERGIC/IMMUNOLOGIC: No hives or skin allergy. *Physical Exam - Vital Signs Last Vital Signs Temp Pulse Resp BP Pulse Ox 97 F L 95 H 18 148/95 95 06/20/17 17:38 06/20/17 17:38 06/20/17 17:38 06/20/17 17:38 06/20/17 17:38 - Physical Exam Comments: 06/20/17 18:45 GENERAL: Awake, alert, and fully oriented, in no acute distress HEAD: No signs of trauma, normocephalic, atraumatic EYES: PERRLA, EOMI, sclera anicteric, conjunctiva clear ENT: Auricles normal inspection, hearing grossly normal, nares patent, oropharynx clear without exudates. Moist mucosa NECK: Normal ROM, supple, no lymphadenopathy, JVD, or masses LUNGS: No distress, speaks full sentences, clear to auscultation bilaterally HEART: Regular rate and rhythm, normal S1 and S2, no murmurs, rubs or gallops, peripheral pulses normal and equal bilaterally. ABDOMEN: Soft, nontender, normoactive bowel sounds. No guarding, no rebound. No masses EXTREMITIES: Normal inspection, Normal range of motion, no edema. No clubbing or cyanosis. NEUROLOGICAL: Cranial nerves II through XII grossly intact. Normal speech, normal gait, no focal sensorimotor deficits SKIN: Warm, Dry, normal turgor, no rashes or lesions noted. Medical Decision Making - Medical Decision Making 06/20/17 18:46 Mr. De Leon is a 62 yo male w/ history of alcohol abuse who presents acutely intoxicated. Currently has no complaints and is resting comfortably. 06/20/17 18:52 Patient signed out to Dr. Rosenthal for further care. *DC/Admit/Observation/Transfer Diagnosis at time of Disposition: Intoxication - Discharge Dispostion Disposition: HOME Condition at time of disposition: Stable - Referrals - Patient Instructions Additional Instructions: Follow-up with a primary care doctor within 1 week. Return to the emergency department if you have any new, worsening or concerning symptoms. - Post Discharge Activity
--- NOTE | 2017-06-20 19:10 | PDOC ---
Attending Attestation - HPI HPI: 06/20/17 19:19 The patient is a 62 year old male, well known to the ED, with a significant past medical history of alcoholism, who presents to the emergency department with, alcohol intoxication. Denies trauma or injuries.The patient reports he does not have any complaints and is requesting a food tray. He denies any recent fevers, chills, headache or dizziness. He denies any recent nausea, vomit, diarrhea or constipation. He denies any recent chest pain or shortness of breath. He denies any recent dysuria, frequency, urgency or hematuria. Allergies: Fish containing products. Past surgical history: None reported. Social History: Alcoholism. Documentation prepared by Stevenson Mosley, acting as medical office coordinator for Fernie Rosenthal MD. - Physicial Exam PE: 06/20/17 19:19 GENERAL: Awake, alert, and fully oriented, in no acute distress HEAD: No signs of trauma EYES: PERRLA, EOMI, sclera anicteric, conjunctiva clear NECK: Normal ROM, supple, no lymphadenopathy, JVD, or masses LUNGS: Breath sounds equal, clear to auscultation bilaterally. No wheezes, and no crackles HEART: Regular rate and rhythm, normal S1 and S2, no murmurs, rubs or gallops ABDOMEN: Soft, nontender, normoactive bowel sounds. No guarding, no rebound. No masses EXTREMITIES: Normal range of motion, no edema. No clubbing or cyanosis. No cords, erythema, or tenderness NEUROLOGICAL: Normal speech, cranial nerves intact, negative pronator drift SKIN: Warm, Dry, normal turgor, no rashes or lesions noted. <Stevenson Mosley - Last Filed: 06/20/17 19:19> - Resident Resident Name: Kelvin eKe - ED Attending Attestation I have performed the following: I have examined & evaluated the patient, The case was reviewed & discussed with the resident, I agree w/resident's findings & plan, Exceptions are as noted - Medical Decision Making 06/20/17 19:09 62-year-old male well-known to this emergency Department for frequent presentations after alcohol intoxication presents today with alcohol intoxication. Patient does not appear to have any injuries and denies trauma or falls. Currently is requesting a food tray. Vitals and exam are within normal limits. Will observe patient until more clinically sober. 06/21/17 01:13 Pt awake, alert, eating a tray. Ambulating with a steady gait, clinically sober. Repeat exam with no evidence of trauma. Repeat vitals wnl. Ready for DC home. I discussed the physical exam findings, ancillary test results and final diagnoses with the patient. I answered all of the patient's questions. The patient was satisfied with the care received and felt comfortable with the discharge plan and treatment plan. The patient will call their primary care physician within 24 hours to arrange follow-up and will return to the Emergency Department with any new, persistent or worsening symptoms. <Fernie Rosenthal - Last Filed: 06/21/17 01:17> Discharge Disposition - Discharge Dispostion Last Admission D/C Date: 04/01/17 Admit: No <Fernie Rosenthal - Last Filed: 06/21/17 01:17> - Diagnosis Intoxication - Discharge Dispostion Disposition: HOME Condition at time of disposition: Stable - Patient Instructions Additional Instructions: Follow-up with a primary care doctor within 1 week. Return to the emergency department if you have any new, worsening or concerning symptoms.
== END 2017-06-21 04:30 | disposition home or self-care (01) ==
LOC: JER 17:32
DX: F10.220 Alcohol dependence with intoxication, uncomplicated (principal); I10 Essential (primary) hypertension; C45.9 Mesothelioma, unspecified; Z59.0 Homelessness
CPT/HCPCS: 99283-25

== ENCOUNTER 2017-06-23 19:43 | Emergency (ER) | payer OTHER ==
[2017-06-23 20:30] VITALS: BP 127/67; PULSE 88; TEMP 97.4; BMI 38.4
--- NOTE | 2017-06-23 21:22 | PDOC ---
History of Present Illness - General Chief Complaint: Alcohol intoxication Stated Complaint: INTOX Time Seen by Provider: 06/23/17 21:18 - History of Present Illness Initial Comments: 06/23/17 21:18 Mr. De Leon is a 62 yo male w/ significant pmh of alcohol abuse who presents acutely intoxicated. Per patient he drank a pint of vodka earlier today. He is currently sleeping in hospital stretcher. The patient denies chest pain, shortness of breath, headache and dizziness. Denies fever, chills, nausea, vomit, diarrhea and constipation. Denies dysuria, frequency, urgency and hematuria. Allergies: Fish products Past History - Past Medical History Allergies/Adverse Reactions: Allergies Allergy/AdvReac Type Severity Reaction Status Date / Time Fish Containing Products Allergy Mild Verified 06/23/17 20:18 No Known Drug Allergies Allergy Verified 06/23/17 20:18 Home Medications: Ambulatory Orders NK [No Known Home Medication] 04/03/17 Anemia: No Asthma: No Cancer: Yes (mesothelioma) Cardiac Disorders: No CVA: No COPD: No CHF: No DVT: No Dementia: No Diabetes: No GI Disorders: No Disorders: No HTN: Yes Hypercholesterolemia: No Kidney Stones: No Liver Disease: No Psychiatric Problems: Yes (alcoholism) Seizures: No Thyroid Disease: No - Surgical History Abdominal Surgery: No Appendectomy: No Cardiac Surgery: No Cholecystectomy: No Lung Surgery: No Neurologic Surgery: No Orthopedic Surgery: No - Family Disease History Family Disease History: CA: Mother - Reproductive History Testicular Surgery: No - Immunization History TDAP Vaccination: Yes Immunization Up to Date: Yes - Suicide/Smoking/Psychosocial Hx Smoking Status: No Smoking History: Never smoked Have you smoked in the past 12 months: No Number of Cigarettes Smoked Daily: 0 Cigars Per Day: 0 'Breaking Loose' booklet given: 11/02/16 Hx Alcohol Use: Yes Drug/Substance Use Hx: No Substance Use Type: Alcohol Hx Substance Use Treatment: Yes Review of Systems - Review of Systems Comments:: 06/23/17 21:20 GENERAL/CONSTITUTIONAL: No fever or chills. No weakness. HEAD, EYES, EARS, NOSE AND THROAT: No change in vision. No ear pain or discharge. No sore throat. CARDIOVASCULAR: No chest pain or shortness of breath RESPIRATORY: No cough, wheezing, or hemoptysis. GASTROINTESTINAL: No nausea, vomiting, diarrhea or constipation. GENITOURINARY: No dysuria, frequency, or change in urination. MUSCULOSKELETAL: No joint or muscle swelling or pain. No neck or back pain. SKIN: No rash NEUROLOGIC: No headache, vertigo, loss of consciousness, or change in strength/ sensation. ENDOCRINE: No increased thirst. No abnormal weight change HEMATOLOGIC/LYMPHATIC: No anemia, easy bleeding, or history of blood clots. ALLERGIC/IMMUNOLOGIC: No hives or skin allergy. *Physical Exam - Vital Signs Last Vital Signs Temp Pulse Resp BP Pulse Ox 97.4 F L 88 14 127/67 98 06/23/17 20:27 06/23/17 20:27 06/23/17 20:27 06/23/17 20:27 06/23/17 20:27 - Physical Exam Comments: 06/23/17 21:20 GENERAL: +Patient acutely intoxicated upon exam. Awake, alert, and fully oriented, in no acute distress HEAD: No signs of trauma, normocephalic, atraumatic EYES: PERRLA, EOMI, sclera anicteric, conjunctiva clear ENT: Auricles normal inspection, hearing grossly normal, nares patent, oropharynx clear without exudates. Moist mucosa NECK: Normal ROM, supple, no lymphadenopathy, JVD, or masses LUNGS: No distress, speaks full sentences, clear to auscultation bilaterally HEART: Regular rate and rhythm, normal S1 and S2, no murmurs, rubs or gallops, peripheral pulses normal and equal bilaterally. ABDOMEN: Soft, nontender, normoactive bowel sounds. No guarding, no rebound. No masses EXTREMITIES: Normal inspection, Normal range of motion, no edema. No clubbing or cyanosis. NEUROLOGICAL: Cranial nerves II through XII grossly intact. Normal speech, normal gait, no focal sensorimotor deficits SKIN: Warm, Dry, normal turgor, no rashes or lesions noted. Medical Decision Making - Medical Decision Making 06/23/17 21:21 Mr. De Leon presents acutely intoxicated. Currently sleeping comfortably in stretcher. 06/23/17 21:34 Patient currently in no distress. Will await clinical sobriety and discharge. Patient signed out to Dr. Casanova for further care. *DC/Admit/Observation/Transfer Diagnosis at time of Disposition: Alcohol intoxication Qualifiers: Complication of substance-induced condition: with unspecified complication Qualified Code(s): F10.929 - Alcohol use, unspecified with intoxication, unspecified - Discharge Dispostion Disposition: HOME Condition at time of disposition: Stable - Referrals Referrals: Garima Bridges MD [Primary Care Provider] - - Patient Instructions Printed Discharge Instructions: DI for Alcohol Abuse - Post Discharge Activity
--- NOTE | 2017-06-23 23:14 | PDOC ---
Attending Attestation - Resident Resident Name: IsaikimberleyMagenKelvin - ED Attending Attestation I have performed the following: I have examined & evaluated the patient, The case was reviewed & discussed with the resident, I agree w/resident's findings & plan, Exceptions are as noted - HPI HPI: 06/23/17 23:13 62 YO MALE WELL KNOWN TO ER P/W ALCOHOL INTOXICATION - Physicial Exam PE: 06/23/17 23:14 disheveled 62 yo male presents with AOB head no lacerations lungs cta b/l cvs [id number] lungs occ rhonchi abd protuberant nontender ext no tenderness neuro intoxicated,moves extremities - Medical Decision Making 06/23/17 23:16 PLAN discharge when safe
--- NOTE | 2017-06-24 06:56 | PDOC ---
*Physical Exam - Vital Signs Last Vital Signs Temp Pulse Resp BP Pulse Ox 97.4 F L 88 14 127/67 98 06/23/17 20:27 06/23/17 20:27 06/23/17 20:27 06/23/17 20:27 06/23/17 20:27 *DC/Admit/Observation/Transfer Diagnosis at time of Disposition: Alcohol intoxication - Discharge Dispostion Disposition: HOME Condition at time of disposition: Stable Admit: No - Referrals Referrals: Garima Bridges MD [Primary Care Provider] - - Patient Instructions Printed Discharge Instructions: DI for Alcohol Abuse - Post Discharge Activity
== END 2017-06-24 07:11 | disposition home or self-care (01) ==
LOC: JER 19:43
DX: F10.220 Alcohol dependence with intoxication, uncomplicated (principal); I10 Essential (primary) hypertension; C45.9 Mesothelioma, unspecified; Z59.0 Homelessness
CPT/HCPCS: 99281-25

== ENCOUNTER 2017-06-25 13:36 | Emergency (ER) | payer OTHER ==
[2017-06-25 14:05] VITALS: BP 136/70; PULSE 94; TEMP 97.3; BMI 34.0
--- NOTE | 2017-06-25 14:37 | PDOC ---
History of Present Illness - General History Source: Patient Exam Limitations: No Limitations - History of Present Illness Initial Comments: 06/25/17 14:40 62-year-old male chronic alcoholic well known to this institution presents with EMS with intoxication. He has no complaints otherwise. <SmithZo - Last Filed: 06/25/17 14:39> <Vignesh Guillen - Last Filed: 06/25/17 18:07> - General Chief Complaint: Alcohol intoxication Stated Complaint: REVIST Time Seen by Provider: 06/25/17 14:06 Past History <Zo Mtz - Last Filed: 06/25/17 14:39> - Past Medical History Anemia: No Asthma: No Cancer: Yes (mesothelioma) Cardiac Disorders: No CVA: No COPD: No CHF: No DVT: No Dementia: No Diabetes: No GI Disorders: No Disorders: No HTN: Yes Hypercholesterolemia: No Kidney Stones: No Liver Disease: No Psychiatric Problems: Yes (alcoholism) Seizures: No Thyroid Disease: No - Surgical History Abdominal Surgery: No Appendectomy: No Cardiac Surgery: No Cholecystectomy: No Lung Surgery: No Neurologic Surgery: No Orthopedic Surgery: No - Family Disease History Family Disease History: CA: Mother - Reproductive History Testicular Surgery: No - Immunization History TDAP Vaccination: Yes Immunization Up to Date: Yes - Suicide/Smoking/Psychosocial Hx Smoking Status: No Smoking History: Never smoked Have you smoked in the past 12 months: No Number of Cigarettes Smoked Daily: 0 Cigars Per Day: 0 Information on smoking cessation initiated: No 'Breaking Loose' booklet given: 11/02/16 Hx Alcohol Use: Yes Drug/Substance Use Hx: No Substance Use Type: Alcohol Hx Substance Use Treatment: Yes <Vignesh Guillen - Last Filed: 06/25/17 18:07> - Past Medical History Allergies/Adverse Reactions: Allergies Allergy/AdvReac Type Severity Reaction Status Date / Time Fish Containing Products Allergy Mild Verified 06/25/17 14:02 No Known Drug Allergies Allergy Verified 06/25/17 14:02 Home Medications: Ambulatory Orders NK [No Known Home Medication] 04/03/17 Review of Systems - Review of Systems Constitutional: No: Chills, Fever Respiratory: No: Cough Cardiac (ROS): No: Chest Pain, Syncope ABD/GI: No: Nausea, Vomiting Musculoskeletal: No: Joint Pain, Muscle Pain Psychiatric: Yes: Other (etoh intox) <Vignesh Guillen - Last Filed: 06/25/17 18:07> *Physical Exam - Vital Signs Last Vital Signs Temp Pulse Resp BP Pulse Ox 97.3 F L 94 H 20 136/70 93 L 06/25/17 14:02 06/25/17 14:02 06/25/17 14:02 06/25/17 14:02 06/25/17 14:02 - Physical Exam Comments: 06/25/17 14:40 GENERAL: The patient is awake, alert, and oriented, in no acute distress. + Alcohol on breath. + Asleep but easily arousable. HEAD: Normal with no signs of trauma. EYES: Pupils equal, round and reactive to light, extraocular movements intact, sclera anicteric, conjunctiva clear with no pallor. ENT: Ears normal, nares patent, oropharynx clear without exudates. Moist mucous membranes. NECK: Normal range of motion, supple without lymphadenopathy, JVD, or masses. LUNGS: Breath sounds equal, clear to auscultation bilaterally. No wheeze/ crackles. HEART: Regular rate and rhythm, normal S1 and S2 without murmur or rub. ABDOMEN: Soft/nontender/nondistended. BS wnl. No guarding or rebound. No palpable masses. No hepatosplenomegaly. EXTREMITIES: Normal range of motion, no edema. No clubbing or cyanosis. No cords, erythema, or tenderness. NEUROLOGICAL: Cranial nerves II through XII grossly intact. Normal speech, gait deferred. PSYCH: Normal mood, normal affect. SKIN: Warm, Dry, normal turgor, no rashes or lesions noted. <Zo Mtz - Last Filed: 06/25/17 14:39> - Vital Signs Last Vital Signs Temp Pulse Resp BP Pulse Ox 97.3 F L 94 H 20 136/70 93 L 06/25/17 14:02 06/25/17 14:02 06/25/17 14:02 06/25/17 14:02 06/25/17 14:02 <Vignesh Guillen - Last Filed: 06/25/17 18:07> Medical Decision Making - Medical Decision Making 06/25/17 14:35 A portion of this note was documented by scribe services under my direction. I have reviewed the details of the note, within reason, and agree with the documentation with the following case summary and management plan written by me. 62-year-old male well known to this institution, chronic alcoholism brought in by EMS with alcohol intoxication. Patient denies any complaints, denies any falls, denies any pain. Vital signs as noted Smells of alcohol Exam is atraumatic 62-year-old male with alcohol intoxication, no acute findings or complaints. Observe, reassess, dispo accordingly 06/25/17 18:04 Clinically sober, ambulating steadily, cab called, stable for discharge <Vignesh Guillen - Last Filed: 06/25/17 18:07> *DC/Admit/Observation/Transfer - Attestations Scribe Attestion: 06/25/17 14:41 Documentation prepared by Zo Mtz, acting as medical affairs specialist for Vignesh Guillen MD, MD/DO. <Zo Mtz - Last Filed: 06/25/17 14:39> <Vignesh Guillen - Last Filed: 06/25/17 18:07> Diagnosis at time of Disposition: Intoxication - Discharge Dispostion Disposition: HOME Condition at time of disposition: Improved - Referrals Referrals: Toni Iyer MD [Staff Physician] - - Patient Instructions Printed Discharge Instructions: DI for Alcohol Abuse Additional Instructions: Activity as tolerated. Stay hydrated. Continue your medications as previously prescribed by your physician. You should follow up with your primary doctor as soon as possible regarding today's emergency department visit. Return to the emergency department for any new or concerning symptoms, particularly chest pain or shortness of breath, falls or headache, fever/ chills.
== END 2017-06-25 18:12 | disposition home or self-care (01) ==
LOC: JER 13:36
DX: F10.220 Alcohol dependence with intoxication, uncomplicated (principal); I10 Essential (primary) hypertension; C45.9 Mesothelioma, unspecified; Z59.0 Homelessness
CPT/HCPCS: 99282-25

== ENCOUNTER 2017-06-25 20:20 | Emergency (ER) | payer OTHER ==
--- NOTE | 2017-06-25 20:29 | PDOC ---
Rapid Medical Evaluation Chief Complaint: Alcohol intoxication Time Seen by Provider: 06/25/17 20:26 Medical Evaluation: Allergies Allergy/AdvReac Type Severity Reaction Status Date / Time Fish Containing Products Allergy Mild Verified 06/25/17 14:02 No Known Drug Allergies Allergy Verified 06/25/17 14:02 06/25/17 20:27 The patient presents with a chief complaint of: Intoxication. Found with a bottle of alcohol I have performed a brief in-person evaluation of this patient; Pertinent physical exam findings: alcohol on the breath. Afebrile I have ordered the following: Nothing The patient will proceed to the ED for further evaluation.
[2017-06-25 20:30] VITALS: TEMP 97.9; BMI 33.4
--- NOTE | 2017-06-26 04:16 | PDOC ---
History of Present Illness - General Chief Complaint: Alcohol intoxication Stated Complaint: INTOX Time Seen by Provider: 06/25/17 20:26 History Source: Patient Exam Limitations: Intoxication - History of Present Illness Initial Comments: 06/26/17 04:13 PCP none History of Present Illness: 61-year-old male with past mental history secured for mesothelioma with long history of EtOH abuse and multiple ER visits and admission secondary to EtOH abuse is presented to the emergency department by EMS secondary to public intoxication. Patient states that he is experiencing epigastric buring at this time. Patient is not slurring his speech at this time but is unstable in gait and is intoxicated. Patient is presently able to deny chest pain, back pain, dizziness, blurred vision, nausea/vomiting, diarrhea, constipation, fever or chills. Patient denies use of any [id number] medication for the treatment of this complaint. Patient denies any sick contacts, travel outside the [place] or contact with any sick individuals who have been outside the [place]. Review of Systems: GENERAL/CONSTITUTIONAL: No fever or chills. No weakness. No weight change. HEAD, EYES, EARS, NOSE AND THROAT: No change in vision. No ear pain or discharge. No sore throat. CARDIOVASCULAR: No chest pain or shortness of breath. RESPIRATORY: No cough, wheezing, or hemoptysis. GASTROINTESTINAL: No nausea, vomiting, diarrhea or constipation. No rectal bleeding. GENITOURINARY: No dysuria, frequency, or change in urination. MUSCULOSKELETAL: No joint or muscle swelling or pain. No neck or back pain. SKIN AND BREASTS: No rash or easy bruising. NEUROLOGIC: No headache, vertigo, loss of consciousness, or loss of sensation. PSYCHIATRIC: EtOH abuse, No depression or anxiety. ENDOCRINE: No increased thirst. No abnormal weight change. HEMATOLOGIC/LYMPHATIC: No anemia, easy bleeding, or history of blood clots. ALLERGIC/IMMUNOLOGIC: No hives or skin allergy. No latex allergy. Past Medical History: Mesothelioma Family History: Mother with cancer Social History: EtOH abuse Surgical history: Denies Allergies: No known drug allergies General Appearance: positive: Appropriately Dressed, presently intoxicated. negative: Apparent Distress, HEENT: positive: EOMI, DOUGLAS, Normal ENT Inspection, Normal Voice, TMs Normal, Pharynx Normal. No Palor of Conjunctivae, Photophobia, Scleral Icterus (R), Scleral Icterus (L) Neck: positive: Trachea midline, Normal Thyroid, Supple. No tenderness, rigidity, Carotid bruit, Stridor, Lymphadenopathy (R), Lymphadenopathy (L), Thyromegaly] Respiratory/Chest: positive: Lungs Clear, Normal Breath Sounds. No Chest Tenderness, Respiratory Distress, Accessory Muscle Use, Labored Respiration, Crackles, Rales, Rhonchi, Stridor, Wheezing, Dullness Cardiovascular: Regular Rhythm, Regular Rate, S1, S2. No JVD, Murmur, Bradycardia, Tachycardia Gastrointestinal/Abdominal: positive for Normal Bowel Sounds, Flat, Soft. No Tenderness, Organomegaly, Pulsatile Mass, Distention, Guarding, Rebound, Hernia , Hepatomegaly, Spleenomegaly] Musculoskeletal: Normal Inspection. No CVA Tenderness, Decreased Range of Motion Extremity: FROM of all extremities, Normal Capillary Refill, Normal Inspection, Normal Range of Motion, Pelvis Stable. No tenderness, Pedal Edema, Swelling, Erythema or deformity Integumentary: Normal Color, Dry, Warm, . No Cyanotic, Erythema, Jaundice or Rash Neurologic: senior branch manager II-XII NML intact, Fully Oriented, Alert, Normal Mood/Affect, Motor Strength 5/5. No appreciable EOM Palsy, Facial Droop or Sensory Deficit Past History - Past Medical History Allergies/Adverse Reactions: Allergies Allergy/AdvReac Type Severity Reaction Status Date / Time Fish Containing Products Allergy Mild Verified 06/25/17 14:02 No Known Drug Allergies Allergy Verified 06/25/17 14:02 Home Medications: Ambulatory Orders NK [No Known Home Medication] 04/03/17 Anemia: No Asthma: No Cancer: Yes (mesothelioma) Cardiac Disorders: No CVA: No COPD: No CHF: No DVT: No Dementia: No Diabetes: No GI Disorders: No Disorders: No HTN: Yes Hypercholesterolemia: No Kidney Stones: No Liver Disease: No Psychiatric Problems: Yes (alcoholism) Seizures: No Thyroid Disease: No - Surgical History Abdominal Surgery: No Appendectomy: No Cardiac Surgery: No Cholecystectomy: No Lung Surgery: No Neurologic Surgery: No Orthopedic Surgery: No - Family Disease History Family Disease History: CA: Mother - Reproductive History Testicular Surgery: No - Immunization History TDAP Vaccination: Yes Immunization Up to Date: Yes - Suicide/Smoking/Psychosocial Hx Smoking Status: No Smoking History: Never smoked Have you smoked in the past 12 months: No Number of Cigarettes Smoked Daily: 0 Cigars Per Day: 0 'Breaking Loose' booklet given: 11/02/16 Hx Alcohol Use: Yes Drug/Substance Use Hx: No Substance Use Type: Alcohol Hx Substance Use Treatment: Yes *Physical Exam - Vital Signs Last Vital Signs Temp Pulse Resp BP Pulse Ox 97.9 F 96 H 18 140/96 93 L 06/25/17 20:26 06/25/17 20:26 06/25/17 20:26 06/25/17 20:26 06/25/17 20:26 Medical Decision Making - Medical Decision Making 06/26/17 04:15 A/P: 61-year-old male with past mental history secured for mesothelioma with long history of EtOH abuse and multiple ER visits and admission secondary to EtOH abuse is presented to the emergency department by EMS secondary to public intoxication. Patient states that he is experiencing epigastric buring at this time. Patient is not slurring his speech at this time but is unstable in gait and is intoxicated. Patient is presently able to deny chest pain, back pain, dizziness, blurred vision, nausea/vomiting, diarrhea, constipation, fever or chills. Patient denies use of any [id number] medication for the treatment of this complaint. Patient denies any sick contacts, travel outside the [place] or contact with any sick individuals who have been outside the [place]. Patient is a male with history of mesothelioma and EtOH abuse presented to the emergency department by EMS secondary to public intoxication. Patient complaining of epigastric burning. I will give patient Maalox and viscous lidocaine then observe patient in the emergency department clinical sobriety is assessed. 06/26/17 06:57 Patient feels better and is clinically sober. I will discharge the patient. *DC/Admit/Observation/Transfer Diagnosis at time of Disposition: Intoxication GERD (gastroesophageal reflux disease) Qualifiers: Esophagitis presence: esophagitis presence not specified Qualified Code(s): K21.9 - Gastro-esophageal reflux disease without esophagitis - Discharge Dispostion Disposition: HOME Condition at time of disposition: Stable Admit: No - Referrals - Patient Instructions Printed Discharge Instructions: DI for Alcohol Abuse - Post Discharge Activity
[2017-06-26] MEDS ORDERED: LIDOCAINE VISCOUS 2% ORAL/TOP 20 ML UNIT-DOSE CUP MM ONE (04:24)
[2017-06-26] MEDS ORDERED: MAG HYDROX/AL HYDROX/SIMETH 30 ML UNIT-DOSE CUP PO ONE (04:24)
--- NOTE | 2017-06-26 04:26 | PDOC ---
*Physical Exam - Vital Signs Last Vital Signs Temp Pulse Resp BP Pulse Ox 97.9 F 96 H 18 140/96 93 L 06/25/17 20:26 06/25/17 20:26 06/25/17 20:26 06/25/17 20:26 06/25/17 20:26 Medical Decision Making - Medical Decision Making 06/26/17 04:26 agree with care from [facility]
[2017-06-26] MEDS ORDERED: LIDOCAINE VISCOUS 2% ORAL/TOP 20 ML UNIT-DOSE CUP ONE (05:36)
[2017-06-26] MEDS ORDERED: MAG HYDROX/AL HYDROX/SIMETH 30 ML UNIT-DOSE CUP ONE (05:37)
[2017-06-26 05:48] VITALS: BP 151/98; PULSE 102
== END 2017-06-26 07:09 | disposition home or self-care (01) ==
LOC: JER 20:20
DX: F10.220 Alcohol dependence with intoxication, uncomplicated (principal); K21.9 Gastro-esophageal reflux disease without esophagitis; I10 Essential (primary) hypertension; C45.9 Mesothelioma, unspecified; Z59.0 Homelessness
CPT/HCPCS: 99281-25

== ENCOUNTER 2017-07-06 14:34 | Emergency (ER) | payer OTHER ==
[2017-07-06 15:13] VITALS: BMI 34.9
--- NOTE | 2017-07-06 17:48 | PDOC ---
History of Present Illness - History of Present Illness Initial Comments: 07/06/17 17:56 The patient is a 62 year old male with a significant PMH of chronic alcoholism who is well known to our institution presents to the emergency department with intoxication. He has no other complaints. <Anna Bennettsy - Last Filed: 07/06/17 17:56> - General History Source: Patient, EMS <Nitish Hernandez - Last Filed: 07/06/17 18:56> - General Chief Complaint: Alcohol intoxication Stated Complaint: INTOX Time Seen by Provider: 07/06/17 15:48 Past History <Anna Bennettsy - Last Filed: 07/06/17 17:56> - Past Medical History Anemia: No Asthma: No Cancer: Yes (mesothelioma) Cardiac Disorders: No CVA: No COPD: No CHF: No DVT: No Dementia: No Diabetes: No GI Disorders: No Disorders: No HTN: Yes Hypercholesterolemia: No Kidney Stones: No Liver Disease: No Psychiatric Problems: Yes (alcoholism) Seizures: No Thyroid Disease: No - Surgical History Abdominal Surgery: No Appendectomy: No Cardiac Surgery: No Cholecystectomy: No Lung Surgery: No Neurologic Surgery: No Orthopedic Surgery: No - Family Disease History Family Disease History: CA: Mother - Reproductive History Testicular Surgery: No - Immunization History TDAP Vaccination: Yes Immunization Up to Date: Yes - Suicide/Smoking/Psychosocial Hx Smoking Status: No Smoking History: Never smoked Have you smoked in the past 12 months: No Number of Cigarettes Smoked Daily: 0 Cigars Per Day: 0 Information on smoking cessation initiated: No 'Breaking Loose' booklet given: 11/02/16 Hx Alcohol Use: Yes Drug/Substance Use Hx: No Substance Use Type: Alcohol Hx Substance Use Treatment: Yes <MaryNitish - Last Filed: 07/06/17 18:56> - Past Medical History Allergies/Adverse Reactions: Allergies Allergy/AdvReac Type Severity Reaction Status Date / Time Fish Containing Products Allergy Mild Verified 06/25/17 14:02 No Known Drug Allergies Allergy Verified 06/25/17 14:02 Home Medications: Ambulatory Orders NK [No Known Home Medication] 04/03/17 *Physical Exam - Vital Signs Last Vital Signs Temp Pulse Resp BP Pulse Ox 98.5 F 92 H 20 111/70 91 L 07/06/17 15:10 07/06/17 15:10 07/06/17 15:10 07/06/17 15:10 07/06/17 15:10 <DonaldOtilia - Last Filed: 07/06/17 17:56> - Vital Signs Last Vital Signs Temp Pulse Resp BP Pulse Ox 98.5 F 92 H 20 111/70 91 L 07/06/17 15:10 07/06/17 15:10 07/06/17 15:10 07/06/17 15:10 07/06/17 15:10 - Physical Exam Comments: 07/06/17 17:49 GENERAL: Awake, alert, but intoxicated. Alcohol on breath HEAD: No signs of trauma EYES: PERRLA, EOMI, sclera anicteric, conjunctiva clear ENT: Auricles normal inspection, hearing grossly normal, nares patent, NECK: Normal ROM, supple, LUNGS: Breath sounds equal, clear to auscultation bilaterally. No wheezes, and no crackles HEART: Regular rate and rhythm, normal S1 and S2, no murmurs, rubs or gallops ABDOMEN: Soft, nontender, normoactive bowel sounds. No guarding, no rebound. No masses EXTREMITIES: Normal range of motion, no edema. No clubbing or cyanosis. No cords, erythema, or tenderness NEUROLOGICAL: Cranial nerves II through XII grossly intact. SKIN: Warm, Dry, normal turgor, no rashes or lesions noted. <Nitish Hernandez - Last Filed: 07/06/17 18:56> Medical Decision Making - Medical Decision Making 07/06/17 16:00 A portion of this note was documented by scribe services under my direction. I have reviewed the details of the note, within reason, and agree with the documentation with the following case summary and management plan written by me. Patient treated in the ED. Nursing notes are reviewed and incorporated into the medical decision-making. Vital signs reviewed. Peripheral IV access obtained by the nurse, laboratory studies are drawn and sent, reviewed and interpreted by myself. Vital Signs Temp Pulse Resp BP Pulse Ox 98.5 F 92 H 20 111/70 91 L 07/06/17 15:10 07/06/17 15:10 07/06/17 15:10 07/06/17 15:10 07/06/17 15:10 62-year-old male with multiple medical problems including alcohol abuse brought in by EMS for alcohol intoxication. Patient reports that he drank alcohol but denies injuries or trauma. Patient is requesting a turkey sandwich. The patient has no evidence of injury. He appears to have alcohol intoxication. He is eating a sandwich now. Will allow him to sober and then discharge if there are no other issues. 07/06/17 18:55 Case signed out to Dr. Pineda for further management and disposition. <Nitish Hernandez - Last Filed: 07/06/17 18:56>
[2017-07-06 21:57] VITALS: BP 110/72; PULSE 102; TEMP 97.7
== END 2017-07-07 06:07 | disposition home or self-care (01) ==
LOC: JER 14:34
DX: F10.220 Alcohol dependence with intoxication, uncomplicated (principal); I10 Essential (primary) hypertension; C45.9 Mesothelioma, unspecified; Z59.0 Homelessness
CPT/HCPCS: 99282-25

== ENCOUNTER 2017-07-07 20:17 | Emergency (ER) | payer OTHER ==
[2017-07-07 21:03] VITALS: BP 115/67; PULSE 82; TEMP 98.3; BMI 36.0
--- NOTE | 2017-07-07 21:03 | PDOC ---
Rapid Medical Evaluation Time Seen by Provider: 07/07/17 21:00 Medical Evaluation: Allergies Allergy/AdvReac Type Severity Reaction Status Date / Time Fish Containing Products Allergy Mild Verified 06/25/17 14:02 No Known Drug Allergies Allergy Verified 06/25/17 14:02 07/07/17 21:00 I have performed a brief in-person evaluation of this patient. The patient presents with a chief complaint of: "to see you", "i want coffee" Pertinent physical exam findings: intoxicated I have ordered the following: turkey sandwich, coffee The patient will proceed to the ED for further evaluation. Discharge Disposition - Diagnosis Intoxication - Discharge Dispostion Disposition: HOME Condition at time of disposition: Stable - Referrals Referrals: Garima Bridges MD [Primary Care Provider] - - Patient Instructions - Post Discharge Activity
--- NOTE | 2017-07-08 00:01 | PDOC ---
History of Present Illness - General Chief Complaint: Alcohol intoxication Stated Complaint: INTOX Time Seen by Provider: 07/07/17 21:00 - History of Present Illness Initial Comments: 07/07/17 23:59 CHIEF COMPLAINT: "i want coffee and a turkey sandwich" HISTORY OF PRESENT ILLNESS: 62 yo M with a significant PMH of chronic alcoholism, well known to our institution, presents to the emergency department with intoxication. He was drinking alcohol on arrival to ED and was intoxicated. He denies having any complaints and requests a turkey sandwich and coffee. REVIEW OF SYSTEMS - denies any complaints, currently intoxicated PHYSICAL EXAM General Appearance: Intoxicated. No apparent distress. HEENT: EOMI, PERRLA, normal voice, TMs normal, pharynx normal. No conjunctival pallor. No photophobia, scleral icterus. Respiratory/Chest: Lungs CTAB. Cardiovascular: RRR. S1, S2. Vascular Pulses: Dorsalis-Pedis (R): 2+, Dorsalis-Pedis (L): 2+ Gastrointestinal/Abdominal: Normal bowel sounds. Abdomen soft, non-distended. No tenderness or rebound tenderness. No organomegaly, pulsatile mass, guarding , hernia, hepatomegaly, splenomegaly. Musculoskeletal/Extremities: Normal inspection. FROM of all extremities, normal capillary refill. Pelvis Stable. No CVA tenderness. No tenderness to extremities, pedal edema, swelling, erythema or deformity. Integumentary: Appropriate color, dry, warm. 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 Fully oriented, alert. Appropriate mood/affect. Motor strength 5/5. No appreciable EOM palsy, facial droop or sensory deficit. Past History - Past Medical History Allergies/Adverse Reactions: Allergies Allergy/AdvReac Type Severity Reaction Status Date / Time Fish Containing Products Allergy Mild Verified 06/25/17 14:02 No Known Drug Allergies Allergy Verified 06/25/17 14:02 Home Medications: Ambulatory Orders NK [No Known Home Medication] 04/03/17 Anemia: No Asthma: No Cancer: Yes (mesothelioma) Cardiac Disorders: No CVA: No COPD: No CHF: No DVT: No Dementia: No Diabetes: No GI Disorders: No Disorders: No HTN: Yes Hypercholesterolemia: No Kidney Stones: No Liver Disease: No Psychiatric Problems: Yes (alcoholism) Seizures: No Thyroid Disease: No - Surgical History Abdominal Surgery: No Appendectomy: No Cardiac Surgery: No Cholecystectomy: No Lung Surgery: No Neurologic Surgery: No Orthopedic Surgery: No - Family Disease History Family Disease History: CA: Mother - Reproductive History Testicular Surgery: No - Immunization History TDAP Vaccination: Yes Immunization Up to Date: Yes - Suicide/Smoking/Psychosocial Hx Smoking Status: No Smoking History: Never smoked Have you smoked in the past 12 months: No Number of Cigarettes Smoked Daily: 0 Cigars Per Day: 0 Information on smoking cessation initiated: No 'Breaking Loose' booklet given: 11/02/16 Hx Alcohol Use: No Drug/Substance Use Hx: No Substance Use Type: Alcohol Hx Substance Use Treatment: Yes *Physical Exam - Vital Signs Last Vital Signs Temp Pulse Resp BP Pulse Ox 98.3 F 82 20 115/67 94 L 07/07/17 20:59 07/07/17 20:59 07/07/17 20:59 07/07/17 20:59 07/07/17 20:59 Medical Decision Making - Medical Decision Making 07/08/17 00:01 62 yo M with hx of multiple medical problems, most notably, alcohol abuse brought in by EMS for alcohol intoxication. Patient reports that he drank alcohol but denies injuries or trauma. Patient is requesting a turkey sandwich. The patient denies any injury, trauma, or pain. He is currently intoxicated and requesting food and coffee.Will allow him to sober and then discharge if there are no other issues. *DC/Admit/Observation/Transfer Diagnosis at time of Disposition: Intoxication - Discharge Dispostion Disposition: HOME Condition at time of disposition: Stable Admit: No - Referrals Referrals: Garima Bridges MD [Primary Care Provider] - - Patient Instructions - Post Discharge Activity
--- NOTE | 2017-07-08 03:00 | PDOC ---
*Physical Exam - Vital Signs Last Vital Signs Temp Pulse Resp BP Pulse Ox 98.3 F 82 20 115/67 94 L 07/07/17 20:59 07/07/17 20:59 07/07/17 20:59 07/07/17 20:59 07/07/17 20:59 Medical Decision Making - Medical Decision Making 07/08/17 02:56 agree with care MICHAEL Rehman *DC/Admit/Observation/Transfer Diagnosis at time of Disposition: Intoxication - Discharge Dispostion Disposition: HOME Condition at time of disposition: Stable - Referrals Referrals: Garima Bridges MD [Primary Care Provider] - - Patient Instructions - Post Discharge Activity
== END 2017-07-08 06:56 | disposition home or self-care (01) ==
LOC: JER 20:17
DX: F10.220 Alcohol dependence with intoxication, uncomplicated (principal); I10 Essential (primary) hypertension; C45.9 Mesothelioma, unspecified; Z59.0 Homelessness
CPT/HCPCS: 99282-25

== ENCOUNTER 2017-07-08 18:50 | Emergency (ER) | payer OTHER ==
[2017-07-08 19:09] VITALS: BMI 42.9
--- NOTE | 2017-07-08 20:00 | PDOC ---
History of Present Illness - General History Source: Patient, Old Records Exam Limitations: No Limitations - History of Present Illness Initial Comments: 07/08/17 20:45 The patient is a 62 year old male brought via EMS, with a significant past medical history of alcohol abuse, who presents to the emergency department with alcohol intoxication. The patient is well known to the ED as he frequents the ED multiple times a week. The patient currently does not have any complaints. The patient was in the ED last night and was discharged this morning. The patient denies chest pain, shortness of breath, headache and dizziness. Denies fever, chills, nausea, vomit, diarrhea and constipation. Denies dysuria, frequency, urgency and hematuria. Allergies: Fish containing products Past surgical history: None reported Social history: Alcohol use <Altaf William - Last Filed: 07/08/17 20:45> <Skye Rashid - Last Filed: 07/09/17 01:44> - General Chief Complaint: Alcohol intoxication Stated Complaint: INTOX Time Seen by Provider: 07/08/17 19:58 Past History <Altaf William - Last Filed: 07/08/17 20:45> - Past Medical History Anemia: No Asthma: No Cancer: Yes (mesothelioma) Cardiac Disorders: No CVA: No COPD: No CHF: No DVT: No Dementia: No Diabetes: No GI Disorders: No Disorders: No HTN: Yes Hypercholesterolemia: No Kidney Stones: No Liver Disease: No Psychiatric Problems: Yes (alcoholism) Seizures: No Thyroid Disease: No - Surgical History Abdominal Surgery: No Appendectomy: No Cardiac Surgery: No Cholecystectomy: No Lung Surgery: No Neurologic Surgery: No Orthopedic Surgery: No - Family Disease History Family Disease History: CA: Mother - Reproductive History Testicular Surgery: No - Immunization History TDAP Vaccination: Yes Immunization Up to Date: Yes - Suicide/Smoking/Psychosocial Hx Smoking Status: No Smoking History: Unknown if ever smoked Have you smoked in the past 12 months: No Number of Cigarettes Smoked Daily: 0 Cigars Per Day: 0 'Breaking Loose' booklet given: 11/02/16 Hx Alcohol Use: No Drug/Substance Use Hx: No Substance Use Type: Alcohol Hx Substance Use Treatment: Yes <Skye Rashid - Last Filed: 07/09/17 01:44> - Past Medical History Allergies/Adverse Reactions: Allergies Allergy/AdvReac Type Severity Reaction Status Date / Time Fish Containing Products Allergy Mild Verified 07/08/17 19:09 No Known Drug Allergies Allergy Verified 07/08/17 19:09 Home Medications: Ambulatory Orders NK [No Known Home Medication] 04/03/17 Review of Systems - Review of Systems Able to Perform ROS?: Yes Comments:: 07/08/17 20:45 GENERAL/CONSTITUTIONAL: (+) Alcohol intoxication. No fever or chills. No weakness. HEAD, EYES, EARS, NOSE AND THROAT: No change in vision. No ear pain or discharge. No sore throat.- CARDIOVASCULAR: No chest pain or shortness of breath RESPIRATORY: No cough, wheezing, or hemoptysis. GASTROINTESTINAL: No nausea, vomiting, diarrhea or constipation. GENITOURINARY: No dysuria, frequency, or change in urination. MUSCULOSKELETAL: No joint or muscle swelling or pain. No neck or back pain. SKIN: No rash NEUROLOGIC: No headache, vertigo, loss of consciousness, or change in strength/ sensation. ENDOCRINE: No increased thirst. No abnormal weight change HEMATOLOGIC/LYMPHATIC: No anemia, easy bleeding, or history of blood clots. ALLERGIC/IMMUNOLOGIC: No hives or skin allergy. <Altaf William - Last Filed: 07/08/17 20:45> *Physical Exam - Vital Signs Last Vital Signs Temp Pulse Resp BP Pulse Ox 98.0 F 88 20 117/67 92 L 07/08/17 19:06 07/08/17 19:06 07/08/17 19:06 07/08/17 19:06 07/08/17 19:06 - Physical Exam Comments: 07/08/17 20:46 GENERAL: The patient is awake, alert, and oriented, in no acute distress. + Alcohol on breath. + Asleep but easily arousable. Disheveled appearance. HEAD: Normal with no signs of trauma. EYES: Pupils equal, round and reactive to light, extraocular movements intact, sclera anicteric, conjunctiva clear with no pallor. ENT: Ears normal, nares patent, oropharynx clear without exudates. Moist mucous membranes. NECK: Normal range of motion, supple without lymphadenopathy, JVD, or masses. LUNGS: Breath sounds equal, clear to auscultation bilaterally. No wheeze/ crackles. HEART: Regular rate and rhythm, normal S1 and S2 without murmur or rub. ABDOMEN: Soft/nontender/nondistended. BS wnl. No guarding or rebound. No palpable masses. No hepatosplenomegaly. EXTREMITIES: Normal range of motion, no edema. No clubbing or cyanosis. No cords, erythema, or tenderness. NEUROLOGICAL: Cranial nerves II through XII grossly intact. Normal speech, gait deferred. PSYCH: Normal mood, normal affect. SKIN: Warm, Dry, normal turgor, no rashes or lesions noted. <Altaf William - Last Filed: 07/08/17 20:45> - Vital Signs Last Vital Signs Temp Pulse Resp BP Pulse Ox 98.0 F 88 20 117/67 92 L 07/08/17 19:06 07/08/17 19:06 07/08/17 19:06 07/08/17 19:06 07/08/17 19:06 <Skye Rashid - Last Filed: 07/09/17 01:44> Medical Decision Making - Medical Decision Making 07/08/17 20:31 a/p: 62yo male with alcohol intoxication -will monitor and allow to metabolize -at baseline -resting comfortably -no external signs of trauma 07/09/17 01:42 pt will be signed out to the oncoming ED physician pending metabolism of etoh <Skye Rashid - Last Filed: 07/09/17 01:44> *DC/Admit/Observation/Transfer - Attestations Scribe Attestion: 07/08/17 20:46 Documentation prepared by Altaf William, acting as ophthalmic medical technician for Skye Rashid DO <Altaf William - Last Filed: 07/08/17 20:45> - Discharge Dispostion Admit: No - Attestations Physician Attestion: 07/08/17 20:32 I, Dr. Skye Rashid DO, attest that this document has been prepared under my direction and personally reviewed by me in its entirety. I further attest, that it accurately reflects all work, treatment, procedures and medical decision -making performed by me. <Skye Rashid - Last Filed: 07/09/17 01:44> Diagnosis at time of Disposition: Alcohol dependence with uncomplicated intoxication - Discharge Dispostion Condition at time of disposition: Stable - Referrals Referrals: Garima Bridges MD [Primary Care Provider] - - Patient Instructions Printed Discharge Instructions: DI for Alcohol Abuse - Post Discharge Activity
[2017-07-09] MEDS ORDERED: POTASSIUM CHLORIDE TABS 20 MEQ TABLET.ER (FP) PO ONE (03:08)
[2017-07-09] MEDS ORDERED: chlordiazePOXIDE HCL 25 MG CAPSULE PO ONE (03:08)
[2017-07-09] MEDS ORDERED: ACETAMINOPHEN 325 MG TABLET (FP) PO ONE (03:08)
[2017-07-09] MEDS ORDERED: ACETAMINOPHEN 325 MG TABLET (FP) ONE (04:04)
[2017-07-09] MEDS ORDERED: chlordiazePOXIDE HCL 25 MG CAPSULE ONE (04:04)
[2017-07-09] MEDS ORDERED: POTASSIUM CHLORIDE ORAL LIQUID 20 MEQ/15 ML ONE (04:05)
[2017-07-09 05:27] VITALS: BP 128/70; PULSE 74; TEMP 97.6
--- NOTE | 2017-07-09 06:30 | PDOC ---
*Physical Exam - Vital Signs Last Vital Signs Temp Pulse Resp BP Pulse Ox 97.6 F 74 17 128/70 99 07/09/17 03:45 07/09/17 03:45 07/09/17 03:45 07/09/17 03:45 07/09/17 03:45 ED Treatment Course - Medications Given in the ED: ED Medications Discontinued Medications Generic Name Dose Route Start Last Admin Trade Name Francisco Javier PRN Reason Stop Dose Admin Acetaminophen 650 mg 07/09/17 03:08 07/09/17 04:09 Tylenol - PO 07/09/17 03:09 650 mg ONCE ONE Administration Chlordiazepoxide HCl 50 mg 07/09/17 03:08 07/09/17 04:09 Librium - PO 07/09/17 03:09 50 mg ONCE ONE Administration Potassium Chloride 40 meq 07/09/17 03:08 07/09/17 04:08 K-Dur - PO 07/09/17 03:09 Not Given ONCE ONE *DC/Admit/Observation/Transfer Diagnosis at time of Disposition: Alcohol dependence with uncomplicated intoxication - Discharge Dispostion Disposition: HOME Condition at time of disposition: Stable Admit: No - Referrals Referrals: Garima Bridges MD [Primary Care Provider] - - Patient Instructions Printed Discharge Instructions: DI for Alcohol Abuse - Post Discharge Activity
== END 2017-07-09 06:36 | disposition home or self-care (01) ==
LOC: JER 18:50
DX: F10.120 Alcohol abuse with intoxication, uncomplicated (principal); I10 Essential (primary) hypertension; C45.9 Mesothelioma, unspecified
CPT/HCPCS: 99282-25

== ENCOUNTER 2017-07-11 16:20 | Emergency (ER) | payer OTHER ==
--- NOTE | 2017-07-11 16:43 | PDOC ---
History of Present Illness - General History Source: Patient Exam Limitations: Intoxication - History of Present Illness Initial Comments: 07/11/17 16:46 The patient is a 62 year old male, well known to this facility, with a significant past medical history of chronic alcoholism,who presents to the emergency department with intoxication. He has no other complaints, and history is limited due to clinical condition. <Marjorie Yarbrough - Last Filed: 07/11/17 16:46> <Fernie Rosenthal - Last Filed: 07/12/17 19:05> - General Stated Complaint: ALCOHOL INTOXICATION, FALL Time Seen by Provider: 07/11/17 16:43 Past History <Marjorie Yarbrough - Last Filed: 07/11/17 16:46> - Past Medical History Anemia: No Asthma: No Cancer: Yes (mesothelioma) Cardiac Disorders: No CVA: No COPD: No CHF: No DVT: No Dementia: No Diabetes: No GI Disorders: No Disorders: No HTN: Yes Hypercholesterolemia: No Kidney Stones: No Liver Disease: No Psychiatric Problems: Yes (alcoholism) Seizures: No Thyroid Disease: No - Surgical History Abdominal Surgery: No Appendectomy: No Cardiac Surgery: No Cholecystectomy: No Lung Surgery: No Neurologic Surgery: No Orthopedic Surgery: No - Family Disease History Family Disease History: CA: Mother - Reproductive History Testicular Surgery: No - Immunization History TDAP Vaccination: Yes Immunization Up to Date: Yes - Suicide/Smoking/Psychosocial Hx Smoking Status: No Smoking History: Unknown if ever smoked Have you smoked in the past 12 months: No Number of Cigarettes Smoked Daily: 0 Cigars Per Day: 0 'Breaking Loose' booklet given: 11/02/16 Hx Alcohol Use: No Drug/Substance Use Hx: No Substance Use Type: Alcohol Hx Substance Use Treatment: Yes <Fernie Rosenthal - Last Filed: 07/12/17 19:05> - Past Medical History Allergies/Adverse Reactions: Allergies Allergy/AdvReac Type Severity Reaction Status Date / Time Fish Containing Products Allergy Mild Verified 07/12/17 14:35 No Known Drug Allergies Allergy Verified 07/12/17 14:35 Home Medications: Ambulatory Orders NK [No Known Home Medication] 04/03/17 Review of Systems - Review of Systems Able to Perform ROS?: No Comments:: 07/11/17 16:48 Limited due to clinical condition. <Marjorie Yarbrough - Last Filed: 07/11/17 16:46> *Physical Exam - Physical Exam Comments: 07/11/17 16:48 GENERAL: Awake, alert, in no acute distress. Intoxicated HEAD: No signs of trauma EYES: PERRLA, EOMI, sclera anicteric, conjunctiva clear ENT: Auricles normal inspection, hearing grossly normal, nares patent, oropharynx clear without exudates. Moist mucosa NECK: Normal ROM, supple, no lymphadenopathy, JVD, or masses LUNGS: Breath sounds equal, clear to auscultation bilaterally. No wheezes, and no crackles HEART: Regular rate and rhythm, normal S1 and S2, no murmurs, rubs or gallops ABDOMEN: Soft, nontender, normoactive bowel sounds. No guarding, no rebound. No masses EXTREMITIES: Normal range of motion, no edema. No clubbing or cyanosis. No cords, erythema, or tenderness BACK: No midline spinal tenderness in cervical/thoracic/lumbar region NEUROLOGICAL: Normal speech, cranial nerves intact, negative pronator drift, 5/ 5 strength in all 4 extremities, normal sensation to light touch in all 4 extremities, normal cerebellar exam, normal reflexes and tone SKIN: Warm, Dry, normal turgor, no rashes or lesions noted. <Marjorie Yarbrough - Last Filed: 07/11/17 16:46> Medical Decision Making - Medical Decision Making 07/11/17 18:33 62-year-old Male, well-known to our emergency department presents with intoxication. No signs of trauma on initial evaluation. Will reevaluate when clinically sober. 07/11/17 19:19 Pt signed out to Dr. Kumar for further mgmt and dispo <Fernie Rosenthal - Last Filed: 07/12/17 19:05> *DC/Admit/Observation/Transfer - Attestations Scribe Attestion: 07/11/17 16:47 Documentation prepared by Marjorie Yarbrough, acting as durable medical equipment technician for Fernie Rosenthal MD. <Marjorie Yarbrough - Last Filed: 07/11/17 16:46> - Attestations Physician Attestion: 07/12/17 19:05 I, Dr. Fernie Rosenthal MD, attest that this document has been prepared under my direction and personally reviewed by me in its entirety. I further attest, that it accurately reflects all work, treatment, procedures and medical decision -making performed by me. <Fernie Rosenthal - Last Filed: 07/12/17 19:05> Diagnosis at time of Disposition: Alcohol abuse - Discharge Dispostion Disposition: ELOPED Condition at time of disposition: Stable - Referrals Referrals: Garima Bridges MD [Primary Care Provider] - - Patient Instructions - Post Discharge Activity
[2017-07-11 17:33] VITALS: BP 94/54; PULSE 81; TEMP 98.7; BMI 37.8
== END 2017-07-11 20:12 | disposition left against medical advice (07) ==
LOC: JER 16:20
DX: F10.220 Alcohol dependence with intoxication, uncomplicated (principal); I10 Essential (primary) hypertension; C45.9 Mesothelioma, unspecified; Z59.0 Homelessness; Y90.9 Presence of alcohol in blood, level not specified
CPT/HCPCS: 99281-25

== ENCOUNTER 2017-07-12 14:34 | Emergency (ER) | payer OTHER ==
[2017-07-12 14:57] VITALS: TEMP 97.5; BMI 39.4
--- NOTE | 2017-07-12 15:40 | PDOC ---
History of Present Illness - General Chief Complaint: Alcohol intoxication Stated Complaint: ALCOHOL INTOXICATION Time Seen by Provider: 07/12/17 15:32 - History of Present Illness Initial Comments: 07/12/17 15:41 62 M with h/o HTN, mesothelioma, and alcohol abuse, presenting to ER after EMS picked him up for public intoxication. Pt was found sleeping [place] bench. Pt endorses ETOH use today. Denies any complaints. Is requesting food tray. Denies any falls. Denies SI/HI/AVH. Past History - Past Medical History Allergies/Adverse Reactions: Allergies Allergy/AdvReac Type Severity Reaction Status Date / Time Fish Containing Products Allergy Mild Verified 07/12/17 14:35 No Known Drug Allergies Allergy Verified 07/12/17 14:35 Home Medications: Ambulatory Orders NK [No Known Home Medication] 04/03/17 Anemia: No Asthma: No Cancer: Yes (mesothelioma) Cardiac Disorders: No CVA: No COPD: No CHF: No DVT: No Dementia: No Diabetes: No GI Disorders: No Disorders: No HTN: Yes Hypercholesterolemia: No Kidney Stones: No Liver Disease: No Psychiatric Problems: Yes (alcoholism) Seizures: No Thyroid Disease: No - Surgical History Abdominal Surgery: No Appendectomy: No Cardiac Surgery: No Cholecystectomy: No Lung Surgery: No Neurologic Surgery: No Orthopedic Surgery: No - Family Disease History Family Disease History: CA: Mother - Reproductive History Testicular Surgery: No - Immunization History TDAP Vaccination: Yes Immunization Up to Date: Yes - Suicide/Smoking/Psychosocial Hx Smoking Status: No Smoking History: Never smoked Have you smoked in the past 12 months: No Number of Cigarettes Smoked Daily: 0 Cigars Per Day: 0 Information on smoking cessation initiated: No 'Breaking Loose' booklet given: 11/02/16 Hx Alcohol Use: No Drug/Substance Use Hx: No Substance Use Type: Alcohol Hx Substance Use Treatment: Yes Review of Systems - Review of Systems Comments:: 07/12/17 15:42 "GENERAL/CONSTITUTIONAL: No fever or chills. No weakness. HEAD, EYES, EARS, NOSE AND THROAT: No change in vision. No ear pain or discharge. No sore throat. CARDIOVASCULAR: No chest pain or shortness of breath. RESPIRATORY: No cough, wheezing, or hemoptysis. GASTROINTESTINAL: No nausea, vomiting, diarrhea or constipation. GENITOURINARY: No dysuria, frequency, or change in urination. MUSCULOSKELETAL: No joint or muscle swelling or pain. No neck or back pain. SKIN: No rash NEUROLOGIC: No headache, vertigo, loss of consciousness, or change in strength/ sensation. ENDOCRINE: No increased thirst. No abnormal weight change. HEMATOLOGIC/LYMPHATIC: No anemia, easy bleeding, or history of blood clots. ALLERGIC/IMMUNOLOGIC: No hives or skin allergy. " *Physical Exam - Vital Signs Last Vital Signs Temp Pulse Resp BP Pulse Ox 97.5 F L 82 18 104/70 100 07/12/17 14:36 07/12/17 14:36 07/12/17 14:36 07/12/17 14:36 07/12/17 14:36 - Physical Exam Comments: 07/12/17 15:42 GENERAL: Awake, alert, and fully oriented, in no acute distress HEAD: No signs of trauma EYES: PERRLA, EOMI, sclera anicteric, conjunctiva clear ENT: Auricles normal inspection, hearing grossly normal, nares patent, oropharynx clear without exudates. Moist mucosa NECK: Nontender, no stepoffs, Normal ROM, supple, no lymphadenopathy, JVD, or masses LUNGS: Breath sounds equal, clear to auscultation bilaterally. No wheezes, and no crackles HEART: Regular rate and rhythm, normal S1 and S2, no murmurs, rubs or gallops ABDOMEN: Soft, nontender, normoactive bowel sounds. No guarding, no rebound. No masses EXTREMITIES: Normal range of motion, no edema. No clubbing or cyanosis. No cords, erythema, or tenderness NEUROLOGICAL: Cranial nerves II through XII intact. 5/5 strength and sensation in all extremities, Normal speech, normal gait SKIN: Warm, Dry, normal turgor, no rashes or lesions noted. Medical Decision Making - Medical Decision Making 07/12/17 15:43 62 M with ETOH intoxication. Now clinically sober, awake, eating lunch tray without complaints. - Ready for DC *DC/Admit/Observation/Transfer Diagnosis at time of Disposition: Alcohol dependence with uncomplicated intoxication - Discharge Dispostion Disposition: HOME - Referrals Referrals: Garima Bridges MD [Primary Care Provider] - - Patient Instructions Printed Discharge Instructions: DI for Alcohol Abuse Additional Instructions: Don't drink. Follow up with your primary doctor as soon as possible. - Post Discharge Activity - Attestations Physician Attestion: 07/12/17 15:46 I, Dr. Jamal Rodriges MD, attest that this document has been prepared under my direction and personally reviewed by me in its entirety. I further attest, that it accurately reflects all work, treatment, procedures and medical decision -making performed by me.
[2017-07-12 17:09] VITALS: BP 108/76; PULSE 85
== END 2017-07-12 16:45 | disposition home or self-care (01) ==
LOC: JER 14:34
DX: F10.220 Alcohol dependence with intoxication, uncomplicated (principal); I10 Essential (primary) hypertension; C45.9 Mesothelioma, unspecified; Z59.0 Homelessness
CPT/HCPCS: 99281-25

== ENCOUNTER 2017-07-13 17:12 | Emergency (ER) | payer OTHER ==
[2017-07-13 17:49] VITALS: BP 110/68; PULSE 90; TEMP 98.3; BMI 40.3
--- NOTE | 2017-07-13 18:09 | PDOC ---
History of Present Illness <Fabiana Woodard - Last Filed: 07/13/17 18:09> - General History Source: Patient Exam Limitations: No Limitations - History of Present Illness Initial Comments: 07/13/17 18:28 The patient is a 62 year old male, well known to the ED, with a significant past medical history of EtOH abuse, hypertension, mesothelioma, who presents to the emergency department with, alcohol intoxication. Patient denies recent injury or trauma. He denies any recent fevers, chills, headache or dizziness. He denies any recent nausea, vomit, diarrhea or constipation. He denies any recent chest pain or shortness of breath. Allergies: NKA Primary Care Physician: Dr. Garima Bridges <Stevenson Mosley - Last Filed: 07/13/17 18:49> <Krystin Cloud - Last Filed: 07/13/17 22:00> - General Chief Complaint: Alcohol intoxication Stated Complaint: INTOX Time Seen by Provider: 07/13/17 17:43 Past History - Past Medical History Anemia: No Asthma: No Cancer: Yes (mesothelioma) Cardiac Disorders: No CVA: No COPD: No CHF: No DVT: No Dementia: No Diabetes: No GI Disorders: No Disorders: No HTN: Yes Hypercholesterolemia: No Kidney Stones: No Liver Disease: No Psychiatric Problems: Yes (alcoholism) Seizures: No Thyroid Disease: No - Surgical History Abdominal Surgery: No Appendectomy: No Cardiac Surgery: No Cholecystectomy: No Lung Surgery: No Neurologic Surgery: No Orthopedic Surgery: No - Family Disease History Family Disease History: CA: Mother - Reproductive History Testicular Surgery: No - Immunization History TDAP Vaccination: Yes Immunization Up to Date: Yes - Suicide/Smoking/Psychosocial Hx Smoking Status: No Smoking History: Former smoker Have you smoked in the past 12 months: No Number of Cigarettes Smoked Daily: 0 Cigars Per Day: 0 Information on smoking cessation initiated: No 'Breaking Loose' booklet given: 11/02/16 Hx Alcohol Use: Yes Drug/Substance Use Hx: No Substance Use Type: Alcohol Hx Substance Use Treatment: Yes <Fabiana Woodard - Last Filed: 07/13/17 18:09> <Stevenson Mosley - Last Filed: 07/13/17 18:49> <Krystin Cloud - Last Filed: 07/13/17 22:00> - Past Medical History Allergies/Adverse Reactions: Allergies Allergy/AdvReac Type Severity Reaction Status Date / Time Fish Containing Products Allergy Mild Verified 07/12/17 14:35 No Known Drug Allergies Allergy Verified 07/12/17 14:35 Home Medications: Ambulatory Orders NK [No Known Home Medication] 04/03/17 Review of Systems - Review of Systems Comments:: 07/13/17 18:28 GENERAL/CONSTITUTIONAL: No fever or chills. No weakness. HEAD, EYES, EARS, NOSE AND THROAT: No change in vision. No ear pain or discharge. No sore throat. CARDIOVASCULAR: No chest pain or shortness of breath. RESPIRATORY: No cough, wheezing, or hemoptysis. GASTROINTESTINAL: No nausea, vomiting, diarrhea or constipation. GENITOURINARY: No dysuria, frequency, or change in urination. MUSCULOSKELETAL: No joint or muscle swelling or pain. No neck or back pain. SKIN: No rash NEUROLOGIC: No headache, vertigo, loss of consciousness, or change in strength/ sensation. ENDOCRINE: No increased thirst. No abnormal weight change. HEMATOLOGIC/LYMPHATIC: No anemia, easy bleeding, or history of blood clots. ALLERGIC/IMMUNOLOGIC: No hives or skin allergy. <Stevenson Mosley - Last Filed: 07/13/17 18:49> *Physical Exam - Vital Signs Last Vital Signs Temp Pulse Resp BP Pulse Ox 98.3 F 90 16 110/68 91 L 07/13/17 17:45 07/13/17 17:45 07/13/17 17:45 07/13/17 17:45 07/13/17 17:45 <Fabiana Woodard - Last Filed: 07/13/17 18:09> - Vital Signs Last Vital Signs Temp Pulse Resp BP Pulse Ox 98.3 F 90 16 110/68 91 L 07/13/17 17:45 07/13/17 17:45 07/13/17 17:45 07/13/17 17:45 07/13/17 17:45 <Stevenson Mosley - Last Filed: 07/13/17 18:49> - Vital Signs Last Vital Signs Temp Pulse Resp BP Pulse Ox 98.3 F 90 16 110/68 91 L 07/13/17 17:45 07/13/17 17:45 07/13/17 17:45 07/13/17 17:45 07/13/17 17:45 <Krystin Cloud - Last Filed: 07/13/17 22:00> ED Treatment Course - RADIOLOGY Radiology Studies Ordered: Category Date Time Status CHEST PA & LAT [RAD] Stat Radiology 07/13/17 17:55 Ordered <WoodardFabiana - Last Filed: 07/13/17 18:09> - LABORATORY CBC & Chemistry Diagram: 07/13/17 18:00 07/13/17 18:00 - RADIOLOGY Radiograph Interpretation: 07/13/17 18:49 GENERAL: +AOB. Awake, alert, and fully oriented, in no acute distress HEAD: No signs of trauma EYES: PERRLA, EOMI, sclera anicteric, conjunctiva clear ENT: Auricles normal inspection, hearing grossly normal, nares patent, oropharynx clear without exudates. Moist mucosa NECK: Normal ROM, supple, no lymphadenopathy, JVD, or masses LUNGS: Breath sounds equal, clear to auscultation bilaterally. No wheezes, and no crackles HEART: Regular rate and rhythm, normal S1 and S2, no murmurs, rubs or gallops ABDOMEN: Soft, nontender, normoactive bowel sounds. No guarding, no rebound. No masses EXTREMITIES: Normal range of motion, no edema. No clubbing or cyanosis. No cords, erythema, or tenderness NEUROLOGICAL: Cranial nerves II through XII grossly intact. Normal speech, normal gait SKIN: No signs of trauma. Warm, Dry, normal turgor, no rashes or lesions noted. <Stevenson Mosley - Last Filed: 07/13/17 18:49> - LABORATORY CBC & Chemistry Diagram: 07/13/17 18:00 07/13/17 18:00 - ADDITIONAL ORDERS Additional order review: Laboratory Results 07/13/17 07/13/17 07/13/17 18:00 18:00 17:37 Sodium 148 H Potassium 2.9 L* Chloride 107 Carbon Dioxide 32 Anion Gap 9 BUN 9 Creatinine 0.5 L Creat Clearance w eGFR > 60 POC Glucometer 111.63448 Random Glucose 92 Calcium 7.6 L Magnesium 1.4 L D Total Bilirubin 0.3 D AST 30 D ALT 21 D Alkaline Phosphatase 111 D Total Protein 6.7 Albumin 3.3 L Alcohol, Quantitative 362.8 H* 07/13/17 07/13/17 18:00 17:37 RBC 3.75 L MCV 84.6 D MCHC 31.6 L RDW 19.1 H MPV 7.6 Neutrophils % 59.2 Lymphocytes % 32.1 D Monocytes % 5.4 Eosinophils % 2.5 Basophils % 0.8 POC Glucometer 111.77970 - Medications Given in the ED: ED Medications Discontinued Medications Generic Name Dose Route Start Last Admin Trade Name Francisco Javier PRN Reason Stop Dose Admin Potassium Citrate/Citric Acid 20 meq 07/13/17 19:21 07/13/17 19:43 Cytra-K - PO 07/13/17 19:22 Not Given ONCE ONE <Pedro LuisKrystin - Last Filed: 07/13/17 22:00> Medical Decision Making - Medical Decision Making 07/13/17 20:01 Received pt on signout [place] [address] Woodard. Pt well known to this ER. presents w/ typical alcohol intoxication. labs w/ mild hypoK, pt has had similar in past. Oral K+ repletion ordered CXR unremarkable on my read pt remains clinically intoxicated. will continue to reeval. Pedro Luis 07/13/17 21:58 Pt clinically sober, plans to take a "medicab" home, pt is NOT driving himself. Steady gait A&O x 3 no tremulousness/fasciculation at this time. cleared for DC. <Pedro LuisKrystin - Last Filed: 07/13/17 22:00> *DC/Admit/Observation/Transfer <Fabiana Woodard - Last Filed: 07/13/17 18:09> - Attestations Scribe Attestion: 07/13/17 18:29 Documentation prepared by Stevenson Mosley, acting as medical reception specialist for Fabiana Woodard MD. <Stevenson Mosley - Last Filed: 07/13/17 18:49> <Krystin Cloud Simone - Last Filed: 07/13/17 22:00> Diagnosis at time of Disposition: Intoxication - Discharge Dispostion Disposition: HOME - Referrals Referrals: Garima Bridges MD [Primary Care Provider] - - Patient Instructions Additional Instructions: avoid alcohol in excess - Post Discharge Activity
[2017-07-13 18:31] LABS: BASO % 0.8 % (0-2.0); EOS % 2.5 % (0-4.5); HEMATOCRIT 31.7 % (35.4-49); LYMPH % 32.1 % (8-40); MCH 26.7 pg (25.7-33.7); MCHC 31.6 g/dl (32.0-35.9); MEAN PLT VOLUME 7.6 fl (7.5-11.1); MONO % 5.4 % (3.8-10.2); NEUT % 59.2 % (42.8-82.8); PLATELET COUNT 281 K/MM3 (134-434); RBC 3.75 M/mm3 (4.00-5.60); RDW 19.1 % (11.9-15.9); WHITE BLOOD COUNT 6.4 K/mm3 (4.0-10.0)
[2017-07-13 18:59] LABS: ALBUMIN 3.3 g/dl (3.4-5.0); ALK PHOS 111 U/L (45-117); ANION GAP 9 (8-16); BILIRUBIN,TOTAL 0.3 mg/dL (0.2-1.0); BLOOD UREA NITROGEN 9 mg/dL (7-18); CALCIUM 7.6 mg/dL (8.5-10.1); CHLORIDE 107 mmol/L (98-107); CO2 32 mmol/L (21-32); CREATININE 0.5 mg/dL (0.7-1.3); GLUCOSE,RANDOM 92 mg/dL (74-106); MAGNESIUM 1.4 mg/dL (1.8-2.4); SGOT/AST 30 U/L (15-37); SGPT/ALT 21 U/L (12-78); SODIUM 148 mmol/L (136-145); TOT PROT 6.7 g/dl (6.4-8.2)
[2017-07-13 19:09] LABS: POTASSIUM 2.9 mmol/L (3.5-5.1)
[2017-07-13 19:10] LABS: MEAN CELL VOLUME 84.6 fl (80-96)
[2017-07-13] MEDS ORDERED: POTASSIUM CITRATE/CITRIC ACID 2 MEQ/ML ML PO ONE (19:21)
== END 2017-07-13 22:39 | disposition home or self-care (01) ==
LOC: JER 17:12
DX: F10.220 Alcohol dependence with intoxication, uncomplicated (principal); I10 Essential (primary) hypertension; C45.9 Mesothelioma, unspecified; Z59.0 Homelessness
CPT/HCPCS: 36415; 71045-TC; 80053; 80307; 82962; 83735; 85025; 87040; 99282-25

== ENCOUNTER 2017-07-14 02:11 | Emergency (ER) | payer OTHER ==
[2017-07-14 02:17] VITALS: BP 111/68; PULSE 65; TEMP 97.7; BMI 38.7
--- NOTE | 2017-07-14 03:10 | PDOC ---
History of Present Illness - General Chief Complaint: Alcohol intoxication Stated Complaint: ETOH Time Seen by Provider: 07/14/17 02:44 History Source: Patient - History of Present Illness Initial Comments: 07/14/17 03:03 62 year old male seen in the ED earlier today for alcohol abuse. no evidence of trauma. no withdrawal symptoms noted at this time patient asleep arousable to verbal stimuli Past History - Past Medical History Allergies/Adverse Reactions: Allergies Allergy/AdvReac Type Severity Reaction Status Date / Time Fish Containing Products Allergy Mild Verified 07/14/17 02:18 No Known Drug Allergies Allergy Verified 07/14/17 02:18 Home Medications: Ambulatory Orders NK [No Known Home Medication] 04/03/17 Anemia: No Asthma: No Cancer: Yes (mesothelioma) Cardiac Disorders: No CVA: No COPD: No CHF: No DVT: No Dementia: No Diabetes: No GI Disorders: No Disorders: No HTN: Yes Hypercholesterolemia: No Kidney Stones: No Liver Disease: No Psychiatric Problems: Yes (alcoholism) Seizures: No Thyroid Disease: No - Surgical History Abdominal Surgery: No Appendectomy: No Cardiac Surgery: No Cholecystectomy: No Lung Surgery: No Neurologic Surgery: No Orthopedic Surgery: No - Family Disease History Family Disease History: CA: Mother - Reproductive History Testicular Surgery: No - Immunization History TDAP Vaccination: Yes Immunization Up to Date: Yes - Suicide/Smoking/Psychosocial Hx Smoking Status: No Smoking History: Never smoked Have you smoked in the past 12 months: No Number of Cigarettes Smoked Daily: 0 Cigars Per Day: 0 Information on smoking cessation initiated: No 'Breaking Loose' booklet given: 11/02/16 Hx Alcohol Use: Yes Drug/Substance Use Hx: No Substance Use Type: Alcohol Hx Substance Use Treatment: Yes *Physical Exam - Vital Signs Last Vital Signs Temp Pulse Resp BP Pulse Ox 97.7 F 65 18 111/68 93 L 07/14/17 02:15 07/14/17 02:15 07/14/17 02:15 07/14/17 02:15 07/14/17 02:15 - Physical Exam General Appearance: Yes: Disheveled, Alcohol on Breath Respiratory/Chest: positive: Lungs Clear, Normal Breath Sounds Extremity: positive: Normal Capillary Refill, Normal Inspection, Normal Range of Motion Integumentary: positive: Normal Color, Dry, Warm Neurologic: positive: Alert, Other (normocephalic) Medical Decision Making - Medical Decision Making 07/14/17 05:12 patient is alert walking to the bathroom. no tremors noted. will d/c home *DC/Admit/Observation/Transfer Diagnosis at time of Disposition: Alcohol abuse - Discharge Dispostion Disposition: HOME - Referrals Referrals: Garima Bridges MD [Primary Care Provider] - - Patient Instructions Printed Discharge Instructions: DI for Alcohol Abuse - Post Discharge Activity
== END 2017-07-14 06:03 | disposition home or self-care (01) ==
LOC: JER 02:11
DX: F10.220 Alcohol dependence with intoxication, uncomplicated (principal); I10 Essential (primary) hypertension; C45.9 Mesothelioma, unspecified; Z59.0 Homelessness
CPT/HCPCS: 99281-25

== ENCOUNTER 2017-07-14 14:21 | Emergency (ER) | payer OTHER ==
[2017-07-14 14:40] VITALS: BP 107/72; PULSE 95; TEMP 97.7; BMI 40.3
--- NOTE | 2017-07-14 14:41 | PDOC ---
Rapid Medical Evaluation Chief Complaint: Back Pain Time Seen by Provider: 07/14/17 14:31 Medical Evaluation: Allergies Allergy/AdvReac Type Severity Reaction Status Date / Time Fish Containing Products Allergy Mild Verified 07/14/17 14:34 No Known Drug Allergies Allergy Verified 07/14/17 14:34 Vital Signs Temp Pulse Resp BP Pulse Ox 97.7 F 95 H 16 107/72 95 07/14/17 14:35 07/14/17 14:35 07/14/17 14:35 07/14/17 14:35 07/14/17 14:35 07/14/17 14:39 Pt c/o: back pain and etoh intox Pt on exam: intox, vss pt ordered for : none pt to proceed to ED Discharge Disposition - Diagnosis Alcohol dependence with uncomplicated intoxication - Referrals Referrals: Garima Bridges MD [Primary Care Provider] - - Patient Instructions - Post Discharge Activity
--- NOTE | 2017-07-14 14:48 | PDOC ---
History of Present Illness - General Exam Limitations: Intoxication - History of Present Illness Initial Comments: 07/14/17 15:14 The patient is a 62 year old male who is well known to the ED with a significant PMH of chronic alcoholism and mesothelioma who presents to the emergency department with alcohol intoxication. He denies any other complaints. This history is limited secondary to the patients intoxication. Allergies: NKDA Social history: Alcohol abuse. PCP: Dr. Garima Bridges <Nitish Bonilla - Last Filed: 07/14/17 15:13> <Fernie Rosenthal - Last Filed: 07/14/17 16:03> - General Chief Complaint: Back Pain Stated Complaint: BACK PAIN Time Seen by Provider: 07/14/17 14:31 Past History <Nitish Bonilla - Last Filed: 07/14/17 15:13> - Past Medical History Anemia: No Asthma: No Cancer: Yes (mesothelioma) Cardiac Disorders: No CVA: No COPD: No CHF: No DVT: No Dementia: No Diabetes: No GI Disorders: No Disorders: No HTN: Yes Hypercholesterolemia: No Kidney Stones: No Liver Disease: No Psychiatric Problems: Yes (alcoholism) Seizures: No Thyroid Disease: No - Surgical History Abdominal Surgery: No Appendectomy: No Cardiac Surgery: No Cholecystectomy: No Lung Surgery: No Neurologic Surgery: No Orthopedic Surgery: No - Family Disease History Family Disease History: CA: Mother - Reproductive History Testicular Surgery: No - Immunization History TDAP Vaccination: Yes Immunization Up to Date: Yes - Suicide/Smoking/Psychosocial Hx Smoking Status: No Smoking History: Never smoked Have you smoked in the past 12 months: No Number of Cigarettes Smoked Daily: 0 Cigars Per Day: 0 Information on smoking cessation initiated: No 'Breaking Loose' booklet given: 11/02/16 Hx Alcohol Use: Yes Drug/Substance Use Hx: No Substance Use Type: Alcohol Hx Substance Use Treatment: Yes <Fernie Rosenthal - Last Filed: 07/14/17 16:03> - Past Medical History Allergies/Adverse Reactions: Allergies Allergy/AdvReac Type Severity Reaction Status Date / Time Fish Containing Products Allergy Mild Verified 07/14/17 14:34 No Known Drug Allergies Allergy Verified 07/14/17 14:34 Home Medications: Ambulatory Orders NK [No Known Home Medication] 04/03/17 Review of Systems - Review of Systems Able to Perform ROS?: No Comments:: 07/14/17 15:14 Limited due to intoxication. <Nitish Bonilla - Last Filed: 07/14/17 15:13> *Physical Exam - Vital Signs Last Vital Signs Temp Pulse Resp BP Pulse Ox 97.7 F 95 H 16 107/72 95 07/14/17 14:35 07/14/17 14:35 07/14/17 14:35 07/14/17 14:35 07/14/17 14:35 - Physical Exam Comments: 07/14/17 15:14 GENERAL: (+) Intoxicated. In no acute distress. HEAD: No signs of trauma EYES: PERRLA, EOMI, sclera anicteric, conjunctiva clear ENT: Auricles normal inspection, hearing grossly normal, nares patent, oropharynx clear without exudates. Moist mucosa NECK: Normal ROM, supple, no lymphadenopathy, JVD, or masses LUNGS: Breath sounds equal, clear to auscultation bilaterally. No wheezes, and no crackles HEART: Regular rate and rhythm, normal S1 and S2, no murmurs, rubs or gallops ABDOMEN: Soft, nontender, normoactive bowel sounds. No guarding, no rebound. No masses EXTREMITIES: Normal range of motion, no edema. No clubbing or cyanosis. No cords , erythema, or tenderness BACK: No midline spinal tenderness in cervical/thoracic/lumbar region NEUROLOGICAL: Normal speech, cranial nerves intact, negative pronator drift, 5/ 5 strength in all 4 extremities, normal sensation to light touch in all 4 extremities, normal cerebellar exam, normal gait, normal reflexes and tone SKIN: Warm, Dry, normal turgor, no rashes or lesions noted. <Nitish Bonilla - Last Filed: 07/14/17 15:13> - Vital Signs Last Vital Signs Temp Pulse Resp BP Pulse Ox 97.7 F 95 H 16 107/72 95 07/14/17 14:35 07/14/17 14:35 07/14/17 14:35 07/14/17 14:35 07/14/17 14:35 <Fernie Rosenthal - Last Filed: 07/14/17 16:03> Medical Decision Making - Medical Decision Making 07/14/17 15:08 62-year-old male well-known to this emergency Department for frequent presentations for alcohol intoxication presents emergency Department with alcohol intoxication. Patient denies any falls or trauma. Will reevaluate the patient when more clinically sober. 07/14/17 16:01 Patient ambulating in the emergency department with a steady gait and requesting a sandwich. Repeat exam unremarkable with no evidence of trauma. Patient has no complaints. Patient is stable for discharge. I discussed the physical exam findings, ancillary test results and final diagnoses with the patient. I answered all of the patient's questions. The patient was satisfied with the care received and felt comfortable with the discharge plan and treatment plan. The patient will call their primary care physician within 24 hours to arrange follow-up and will return to the Emergency Department with any new, persistent or worsening symptoms. <Fernie Rosenthal - Last Filed: 07/14/17 16:03> *DC/Admit/Observation/Transfer - Attestations Scribe Attestion: 07/14/17 15:14 Documentation prepared by Nitish Bonilla, acting as adjunct faculty for medical terminology for Fernie Rosenthal MD. <Nitish Bonilla - Last Filed: 07/14/17 15:13> - Discharge Dispostion Admit: No - Attestations Physician Attestion: 07/14/17 16:03 I, Dr. Fernie Rosenthal MD, attest that this document has been prepared under my direction and personally reviewed by me in its entirety. I further attest, that it accurately reflects all work, treatment, procedures and medical decision -making performed by me. <Fernie Rosenthal - Last Filed: 07/14/17 16:03> Diagnosis at time of Disposition: Alcohol dependence with uncomplicated intoxication - Discharge Dispostion Disposition: HOME Condition at time of disposition: Stable - Referrals Referrals: Garima Bridges MD [Primary Care Provider] - - Patient Instructions Additional Instructions: Follow-up with your primary care doctor within one week. Return to emergency department if you have any new, worsening or concerning symptoms. - Post Discharge Activity
== END 2017-07-14 16:13 | disposition home or self-care (01) ==
LOC: JER 14:21
DX: F10.220 Alcohol dependence with intoxication, uncomplicated (principal); I10 Essential (primary) hypertension; C45.9 Mesothelioma, unspecified; Z59.0 Homelessness
CPT/HCPCS: 99281-25

== ENCOUNTER 2017-07-14 21:27 | Emergency (ER) | payer OTHER ==
--- NOTE | 2017-07-14 21:46 | PDOC ---
Rapid Medical Evaluation Time Seen by Provider: 07/14/17 21:37 Medical Evaluation: Allergies Allergy/AdvReac Type Severity Reaction Status Date / Time Fish Containing Products Allergy Mild Verified 07/14/17 14:34 No Known Drug Allergies Allergy Verified 07/14/17 14:34 07/14/17 21:40 Pt c/o: no complaints, picked up by ems after receiving a call of pt laying down in [facility] and would not get up. Pt states did not want to leave because he did not have a bed. pt on brief exam: vss, alcohol on breath pt ordered for: none Pt to proceed to the ED Discharge Disposition - Diagnosis Alcohol dependence with uncomplicated intoxication - Referrals - Patient Instructions - Post Discharge Activity
[2017-07-14 21:51] VITALS: BP 112/80; PULSE 87; TEMP 97.8; BMI 33.0
--- NOTE | 2017-07-14 23:36 | PDOC ---
History of Present Illness - General Chief Complaint: Substance Abuse Stated Complaint: INTOX Time Seen by Provider: 07/14/17 21:37 History Source: Patient - History of Present Illness Initial Comments: 07/14/17 23:36 62 year old male with alcohol abuse BIB EMS for laying on the floor of intermediate because he didn't have a bed. patient with frequent visits to the ER for alcohol intoxication. patient is alert awake. no dysarthria noted., normocephalic no evidence of trauma. 07/14/17 23:37 Past History - Past Medical History Allergies/Adverse Reactions: Allergies Allergy/AdvReac Type Severity Reaction Status Date / Time Fish Containing Products Allergy Mild Verified 07/14/17 14:34 No Known Drug Allergies Allergy Verified 07/14/17 14:34 Home Medications: Ambulatory Orders NK [No Known Home Medication] 04/03/17 Anemia: No Asthma: No Cancer: Yes (mesothelioma) Cardiac Disorders: No CVA: No COPD: No CHF: No DVT: No Dementia: No Diabetes: No GI Disorders: No Disorders: No HTN: Yes Hypercholesterolemia: No Kidney Stones: No Liver Disease: No Psychiatric Problems: Yes (alcoholism) Seizures: No Thyroid Disease: No - Surgical History Abdominal Surgery: No Appendectomy: No Cardiac Surgery: No Cholecystectomy: No Lung Surgery: No Neurologic Surgery: No Orthopedic Surgery: No - Family Disease History Family Disease History: CA: Mother - Reproductive History Testicular Surgery: No - Immunization History TDAP Vaccination: Yes Immunization Up to Date: Yes - Suicide/Smoking/Psychosocial Hx Smoking Status: No Smoking History: Current every day smoker Have you smoked in the past 12 months: No Number of Cigarettes Smoked Daily: 0 Cigars Per Day: 0 Information on smoking cessation initiated: No 'Breaking Loose' booklet given: 11/02/16 Hx Alcohol Use: No Drug/Substance Use Hx: No Substance Use Type: Alcohol Hx Substance Use Treatment: Yes *Physical Exam - Vital Signs Last Vital Signs Temp Pulse Resp BP Pulse Ox 97.8 F 87 16 112/80 96 07/14/17 21:45 07/14/17 21:45 07/14/17 21:45 07/14/17 21:45 07/14/17 21:45 - Physical Exam General Appearance: Yes: Disheveled Respiratory/Chest: positive: Normal Breath Sounds Cardiovascular: positive: Regular Rhythm, Regular Rate Gastrointestinal/Abdominal: positive: Normal Bowel Sounds, Soft Musculoskeletal: positive: Normal Inspection Extremity: positive: Normal Capillary Refill, Normal Inspection, Normal Range of Motion Integumentary: positive: Normal Color, Dry, Warm Neurologic: positive: Fully Oriented, Alert, Normal Mood/Affect Medical Decision Making - Medical Decision Making 07/14/17 23:40 patient is alert awake. requesting medicaid taxi to go. no slurred speech noted. will d/c home. *DC/Admit/Observation/Transfer Diagnosis at time of Disposition: Alcohol dependence with uncomplicated intoxication - Discharge Dispostion Disposition: HOME - Referrals - Patient Instructions Printed Discharge Instructions: DI for Alcohol Abuse - Post Discharge Activity
== END 2017-07-15 00:25 | disposition home or self-care (01) ==
LOC: JER 21:27
DX: F10.220 Alcohol dependence with intoxication, uncomplicated (principal); Y90.9 Presence of alcohol in blood, level not specified; I10 Essential (primary) hypertension; C45.9 Mesothelioma, unspecified; Z59.0 Homelessness
CPT/HCPCS: 99281-25

== ENCOUNTER 2017-07-15 18:03 | Emergency (ER) | payer OTHER ==
[2017-07-15 19:00] VITALS: BP 117/72; PULSE 82; TEMP 98.2; BMI 33.0
--- NOTE | 2017-07-15 19:22 | PDOC ---
History of Present Illness - General History Source: Patient Exam Limitations: Intoxication - History of Present Illness Initial Comments: 07/15/17 19:35 The patient is a 62 year old male, well known to our Emergency Room, with a significant past medical history of alcoholism, hypertension, and mesothelioma, who presents to the emergency department with alcohol intoxication. The patient currently does not have any complaints. The patient was in the ED last night and was discharged this morning. The patient denies chest pain, shortness of breath, headache and dizziness. Denies fever, chills, nausea, vomit, diarrhea and constipation. Denies dysuria, frequency, urgency and hematuria. Allergies: Fish containing products Past surgical history: None reported Social history: Alcohol use <Marjorie Yarbrough - Last Filed: 07/15/17 19:37> <Skye Rashid - Last Filed: 07/16/17 01:41> - General Chief Complaint: Alcohol intoxication Stated Complaint: INTOX Time Seen by Provider: 07/15/17 18:59 Past History <Marjorie Yarbrough - Last Filed: 07/15/17 19:37> - Past Medical History Anemia: No Asthma: No Cancer: Yes (mesothelioma) Cardiac Disorders: No CVA: No COPD: No CHF: No DVT: No Dementia: No Diabetes: No GI Disorders: No Disorders: No HTN: Yes Hypercholesterolemia: No Kidney Stones: No Liver Disease: No Psychiatric Problems: Yes (alcoholism) Seizures: No Thyroid Disease: No - Surgical History Abdominal Surgery: No Appendectomy: No Cardiac Surgery: No Cholecystectomy: No Lung Surgery: No Neurologic Surgery: No Orthopedic Surgery: No - Family Disease History Family Disease History: CA: Mother - Reproductive History Testicular Surgery: No - Immunization History TDAP Vaccination: Yes Immunization Up to Date: Yes - Suicide/Smoking/Psychosocial Hx Smoking Status: No Smoking History: Never smoked Have you smoked in the past 12 months: No Number of Cigarettes Smoked Daily: 0 Cigars Per Day: 0 Information on smoking cessation initiated: No 'Breaking Loose' booklet given: 11/02/16 Hx Alcohol Use: No Drug/Substance Use Hx: No Substance Use Type: Alcohol Hx Substance Use Treatment: Yes <Skye Rashid - Last Filed: 07/16/17 01:41> - Past Medical History Allergies/Adverse Reactions: Allergies Allergy/AdvReac Type Severity Reaction Status Date / Time Fish Containing Products Allergy Mild Verified 07/14/17 14:34 No Known Drug Allergies Allergy Verified 07/14/17 14:34 Home Medications: Ambulatory Orders NK [No Known Home Medication] 04/03/17 Review of Systems - Review of Systems Able to Perform ROS?: Yes Comments:: 07/15/17 19:37 GENERAL/CONSTITUTIONAL: (+Alcohol intoxication.) No fever or chills. No weakness. HEAD, EYES, EARS, NOSE AND THROAT: No change in vision. No ear pain or discharge. No sore throat. GASTROINTESTINAL: No nausea, vomiting, diarrhea or constipation. GENITOURINARY: No dysuria, frequency, or change in urination. CARDIOVASCULAR: No chest pain or shortness of breath. RESPIRATORY: No cough, wheezing, or hemoptysis. MUSCULOSKELETAL: No joint or muscle swelling or pain. No neck or back pain. SKIN: No rash NEUROLOGIC: No headache, vertigo, loss of consciousness, or change in strength/ sensation. ENDOCRINE: No increased thirst. No abnormal weight change. HEMATOLOGIC/LYMPHATIC: No anemia, easy bleeding, or history of blood clots. ALLERGIC/IMMUNOLOGIC: No hives or skin allergy. <Marjorie Yarbrough - Last Filed: 07/15/17 19:37> *Physical Exam - Vital Signs Last Vital Signs Temp Pulse Resp BP Pulse Ox 98.2 F 82 18 117/72 94 L 07/15/17 18:05 07/15/17 18:05 07/15/17 18:05 07/15/17 18:05 07/15/17 18:05 - Physical Exam Comments: 07/15/17 19:38 Constitutional: Awake, alert, oriented. +Intoxicated. +Alcohol in breath. Head: Normocephalic. Atraumatic Eyes: PERRL. EOMI. Conjunctivae are not pale. ENT: Mucous membranes are moist and intact. Posterior pharynx without exudates or erythema. Uvula midline. Neck: Supple. Full ROM. No lymphadenopathy. Cardiovascular: Regular rate. Regular rhythm. S1, S2 regular. Distal pulses are 2+ and symmetric. Pulmonary/Chest: No evidence of respiratory distress. Clear to auscultation bilaterally No wheezing, rales or rhonchi. Abdominal: Soft and non-distended. There is no tenderness. No rebound, guarding or rigidity. No organomegaly. No palpable masses. Good bowel sounds. Back: No CVA tenderness. Musculoskeletal: No edema. No cyanosis. No clubbing. Full range of motion in all extremities. No calf tenderness. Radial/pedal pulses are intact and 2+ bilaterally Skin: Skin is warm and dry. No petechiae. No purpura. Neurological: Alert and oriented to person, place, and time. Cranial nerves II -XII are grossly intact. Normal speech. Strength is grossly symmetric. No sensory deficits. Psychiatric: Good eye contact. Normal interaction, affect and behavior. <Marjorie Yarbrough - Last Filed: 07/15/17 19:37> - Vital Signs Last Vital Signs Temp Pulse Resp BP Pulse Ox 98.2 F 82 18 117/72 94 L 07/15/17 18:05 07/15/17 18:05 07/15/17 18:05 07/15/17 18:05 07/15/17 18:05 <Skye Rashid - Last Filed: 07/16/17 01:41> Medical Decision Making - Medical Decision Making 07/15/17 20:04 a/p: 62yo male with alcohol intoxication no external signs of trauma no complaints will allow to metabolize tolerating PO intake in the ED 07/16/17 01:20 pt resting comfortably tolerated po in the ED pt will be signed out to the oncoming ED physician pending re-eval <Skye Rashid - Last Filed: 07/16/17 01:41> *DC/Admit/Observation/Transfer - Attestations Scribe Attestion: 07/15/17 19:36 Documentation prepared by Marjorie Yarbrough, acting as medical anthropologist for Skye Rashid DO. <Marjorie Yarbrough - Last Filed: 07/15/17 19:37> - Discharge Dispostion Admit: No - Attestations Physician Attestion: 07/15/17 20:05 I, Dr. Skye Rashid DO, attest that this document has been prepared under my direction and personally reviewed by me in its entirety. I further attest, that it accurately reflects all work, treatment, procedures and medical decision -making performed by me. <Skye Rashid - Last Filed: 07/16/17 01:41> Diagnosis at time of Disposition: Alcohol dependence with uncomplicated intoxication - Discharge Dispostion Condition at time of disposition: Stable - Referrals Referrals: Toni Iyer MD [Staff Physician] - - Patient Instructions Printed Discharge Instructions: DI for Alcohol Abuse
== END 2017-07-16 05:40 | disposition home or self-care (01) ==
LOC: JER 18:03
DX: F10.120 Alcohol abuse with intoxication, uncomplicated (principal); C45.9 Mesothelioma, unspecified
CPT/HCPCS: 99283-25

== ENCOUNTER 2017-07-16 21:55 | Emergency (ER) | payer OTHER ==
[2017-07-16 22:14] VITALS: BP 100/66; PULSE 95; TEMP 97.2; BMI 40.1
--- NOTE | 2017-07-17 00:45 | PDOC ---
History of Present Illness - General History Source: Patient, EMS, Old Records Exam Limitations: No Limitations - History of Present Illness Initial Comments: 07/17/17 00:46 The patient is a 62 year old male who is well known to the Emergency Department with past medical history of alcoholism, hypertension, mesothelioma and arrives via EMS for alcohol intoxication. As usual, the patient denies any complaints. The patient was seen in the ED yesterday for the same symptoms where he was discharged in the morning. The patient denies any fever, chills, nausea, vomiting, diarrhea, cough, SOB, CP, or urinary symptoms. <Mary Galeas - Last Filed: 07/17/17 00:46> <Skye Rashid - Last Filed: 07/17/17 01:03> - General Chief Complaint: Alcohol intoxication Stated Complaint: ALCOHOL INTOXICATION Time Seen by Provider: 07/17/17 00:24 Past History <Mary Galeas - Last Filed: 07/17/17 00:46> - Past Medical History Anemia: No Asthma: No Cancer: Yes (mesothelioma) Cardiac Disorders: No CVA: No COPD: No CHF: No DVT: No Dementia: No Diabetes: No GI Disorders: No Disorders: No HTN: Yes Hypercholesterolemia: No Kidney Stones: No Liver Disease: No Psychiatric Problems: Yes (alcoholism) Seizures: No Thyroid Disease: No - Surgical History Abdominal Surgery: No Appendectomy: No Cardiac Surgery: No Cholecystectomy: No Lung Surgery: No Neurologic Surgery: No Orthopedic Surgery: No - Family Disease History Family Disease History: CA: Mother - Reproductive History Testicular Surgery: No - Immunization History TDAP Vaccination: Yes Immunization Up to Date: Yes - Suicide/Smoking/Psychosocial Hx Smoking Status: No Smoking History: Never smoked Have you smoked in the past 12 months: No Number of Cigarettes Smoked Daily: 0 Cigars Per Day: 0 Information on smoking cessation initiated: No 'Breaking Loose' booklet given: 11/02/16 Hx Alcohol Use: Yes Drug/Substance Use Hx: No Substance Use Type: Alcohol Hx Substance Use Treatment: Yes <Skye Rashid - Last Filed: 07/17/17 01:03> - Past Medical History Allergies/Adverse Reactions: Allergies Allergy/AdvReac Type Severity Reaction Status Date / Time Fish Containing Products Allergy Mild Verified 07/16/17 22:14 No Known Drug Allergies Allergy Verified 07/16/17 22:14 Home Medications: Ambulatory Orders NK [No Known Home Medication] 04/03/17 Review of Systems - Review of Systems Able to Perform ROS?: Yes Comments:: 07/17/17 00:48 GENERAL/CONSTITUTIONAL: No fever or chills. No weakness. HEAD, EYES, EARS, NOSE AND THROAT: No change in vision. No ear pain or discharge. No sore throat. CARDIOVASCULAR: No chest pain or shortness of breath. RESPIRATORY: No cough, wheezing, or hemoptysis. GASTROINTESTINAL: No nausea, vomiting, diarrhea or constipation. GENITOURINARY: No dysuria, frequency, or change in urination. MUSCULOSKELETAL: No joint or muscle swelling or pain. No neck or back pain. SKIN: No rash NEUROLOGIC: No headache, vertigo, loss of consciousness, or change in strength/ sensation. ENDOCRINE: No increased thirst. No abnormal weight change. HEMATOLOGIC/LYMPHATIC: No anemia, easy bleeding, or history of blood clots. ALLERGIC/IMMUNOLOGIC: No hives or skin allergy. All Other Systems: Reviewed and Negative <Mary Galeas - Last Filed: 07/17/17 00:46> *Physical Exam - Vital Signs Last Vital Signs Temp Pulse Resp BP Pulse Ox 97.2 F L 95 H 20 100/66 95 07/16/17 22:12 07/16/17 22:12 07/16/17 22:12 07/16/17 22:12 07/16/17 22:12 - Physical Exam Comments: 07/17/17 00:48 GENERAL: Awake, alert, and fully oriented, in no acute distress HEAD: No signs of trauma EYES: PERRLA, EOMI, sclera anicteric, conjunctiva clear ENT: Auricles normal inspection, hearing grossly normal, nares patent, oropharynx clear without exudates. Moist mucosa NECK: Normal ROM, supple, no lymphadenopathy, JVD, or masses LUNGS: Breath sounds equal, clear to auscultation bilaterally. No wheezes, and no crackles HEART: Regular rate and rhythm, normal S1 and S2, no murmurs, rubs or gallops ABDOMEN: Soft, nontender, normoactive bowel sounds. No guarding, no rebound. No masses EXTREMITIES: Normal range of motion, no edema. No clubbing or cyanosis. No cords, erythema, or tenderness NEUROLOGICAL: Cranial nerves II through XII grossly intact. Normal speech, normal gait SKIN: Warm, Dry, normal turgor, no rashes or lesions noted. <Mary Galeas - Last Filed: 07/17/17 00:46> - Vital Signs Last Vital Signs Temp Pulse Resp BP Pulse Ox 97.2 F L 95 H 20 100/66 95 07/16/17 22:12 07/16/17 22:12 07/16/17 22:12 07/16/17 22:12 07/16/17 22:12 <Skye Rashid - Last Filed: 07/17/17 01:03> Medical Decision Making - Medical Decision Making 07/17/17 01:01 62yo male with alcohol intoxication and homelessness -drinking vodka -no external signs of trauma -will monitor and allow to metabolize -pt well known to the ED 07/17/17 01:02 pt will be signed out to the oncoming ED physician pending metabolism of etoh <Skye Rashid - Last Filed: 07/17/17 01:03> *DC/Admit/Observation/Transfer - Attestations Scribe Attestion: 07/17/17 00:49 Documentation prepared by Mary Galeas, acting as medical billing assistant for Skye Rashid DO. <[email or web address] - Last Filed: 07/17/17 00:46> - Discharge Dispostion Admit: No - Attestations Physician Attestion: 07/17/17 01:02 I, Dr. Skye Rashid DO, attest that this document has been prepared under my direction and personally reviewed by me in its entirety. I further attest, that it accurately reflects all work, treatment, procedures and medical decision -making performed by me. <Skye Rashid - Last Filed: 07/17/17 01:03> Diagnosis at time of Disposition: Alcohol dependence with uncomplicated intoxication - Discharge Dispostion Condition at time of disposition: Stable - Referrals Referrals: Garima Bridges MD [Primary Care Provider] - - Patient Instructions Printed Discharge Instructions: DI for Alcohol Abuse - Post Discharge Activity
--- NOTE | 2017-07-17 06:29 | PDOC ---
*Physical Exam - Vital Signs Last Vital Signs Temp Pulse Resp BP Pulse Ox 97.2 F L 95 H 20 100/66 95 07/16/17 22:12 07/16/17 22:12 07/16/17 22:12 07/16/17 22:12 07/16/17 22:12 Medical Decision Making - Medical Decision Making 07/17/17 06:28 Sign-out received from outgoing Emergency Physician Dr. Rashid Pt interviewed and examined Ancillary studies reviewed Case discussed in detail with oncoming Emergency Physician including history, physical exam and ancillary studies. The patient has been observed and now is sober and ambulatory. Pt requesting to go home. Will d/c him. I discussed the physical exam findings, ancillary test results and final diagnoses with the patient. I answered all of the patient's questions. The patient was satisfied with the care received and felt comfortable with the discharge plan and treatment plan. The patient will call their primary care physician within 24 hours to arrange follow-up and will return to the Emergency Department with any new, persistant or worsening symptoms. *DC/Admit/Observation/Transfer Diagnosis at time of Disposition: Alcohol dependence with uncomplicated intoxication - Discharge Dispostion Disposition: HOME Condition at time of disposition: Improved Admit: No - Referrals Referrals: Garima Bridges MD [Primary Care Provider] - - Patient Instructions Printed Discharge Instructions: DI for Alcohol Abuse Additional Instructions: Please rest and follow up with your doctor. - Post Discharge Activity
== END 2017-07-17 06:48 | disposition home or self-care (01) ==
LOC: JER 21:55
DX: F10.220 Alcohol dependence with intoxication, uncomplicated (principal); I10 Essential (primary) hypertension; C45.9 Mesothelioma, unspecified; Z59.0 Homelessness
CPT/HCPCS: 99282-25

== ENCOUNTER 2017-07-21 14:49 | Emergency (ER) | payer OTHER ==
[2017-07-21 15:35] VITALS: BP 137/89; PULSE 92; TEMP 97.1; BMI 33.0
--- NOTE | 2017-07-21 17:15 | PDOC ---
History of Present Illness - General Chief Complaint: Alcohol intoxication Stated Complaint: REVISIT Time Seen by Provider: 07/21/17 15:31 - History of Present Illness Initial Comments: 07/21/17 17:14 62 M with h/o HTN, mesothelioma, and alcohol abuse, presenting to ER after EMS picked him up for intoxication. Pt endorses ETOH use today. Denies any complaints. Denies pain. Denies any falls or trauma. Denies SI/HI/AVH. Past History - Past Medical History Allergies/Adverse Reactions: Allergies Allergy/AdvReac Type Severity Reaction Status Date / Time Fish Containing Products Allergy Mild Verified 07/21/17 16:25 No Known Drug Allergies Allergy Verified 07/21/17 16:25 Home Medications: Ambulatory Orders NK [No Known Home Medication] 04/03/17 Anemia: No Asthma: No Cancer: Yes (mesothelioma) Cardiac Disorders: No CVA: No COPD: No CHF: No DVT: No Dementia: No Diabetes: No GI Disorders: No Disorders: No HTN: Yes Hypercholesterolemia: No Kidney Stones: No Liver Disease: No Psychiatric Problems: Yes (alcoholism) Seizures: No Thyroid Disease: No - Surgical History Abdominal Surgery: No Appendectomy: No Cardiac Surgery: No Cholecystectomy: No Lung Surgery: No Neurologic Surgery: No Orthopedic Surgery: No - Family Disease History Family Disease History: CA: Mother - Reproductive History Testicular Surgery: No - Immunization History TDAP Vaccination: Yes Immunization Up to Date: Yes - Suicide/Smoking/Psychosocial Hx Smoking Status: No Smoking History: Never smoked Have you smoked in the past 12 months: No Number of Cigarettes Smoked Daily: 0 Cigars Per Day: 0 Information on smoking cessation initiated: No 'Breaking Loose' booklet given: 11/02/16 Hx Alcohol Use: No Drug/Substance Use Hx: Yes Substance Use Type: Alcohol Hx Substance Use Treatment: Yes Review of Systems - Review of Systems Comments:: 07/21/17 17:15 "GENERAL/CONSTITUTIONAL: No fever or chills. No weakness. HEAD, EYES, EARS, NOSE AND THROAT: No change in vision. No ear pain or discharge. No sore throat. CARDIOVASCULAR: No chest pain or shortness of breath. RESPIRATORY: No cough, wheezing, or hemoptysis. GASTROINTESTINAL: No nausea, vomiting, diarrhea or constipation. GENITOURINARY: No dysuria, frequency, or change in urination. MUSCULOSKELETAL: No joint or muscle swelling or pain. No neck or back pain. SKIN: No rash NEUROLOGIC: No headache, vertigo, loss of consciousness, or change in strength/ sensation. ENDOCRINE: No increased thirst. No abnormal weight change. HEMATOLOGIC/LYMPHATIC: No anemia, easy bleeding, or history of blood clots. ALLERGIC/IMMUNOLOGIC: No hives or skin allergy. " *Physical Exam - Vital Signs Last Vital Signs Temp Pulse Resp BP Pulse Ox 97.1 F L 92 H 20 137/89 95 07/21/17 15:31 07/21/17 15:31 07/21/17 15:31 07/21/17 15:31 07/21/17 15:31 - Physical Exam Comments: 07/21/17 17:15 "GENERAL: Awake, alert, and fully oriented, in no acute distress HEAD: No signs of trauma EYES: PERRLA, EOMI, sclera anicteric, conjunctiva clear ENT: Auricles normal inspection, hearing grossly normal, nares patent, oropharynx clear without exudates. Moist mucosa NECK: Nontender, no stepoffs, Normal ROM, supple, no lymphadenopathy, JVD, or masses LUNGS: Breath sounds equal, clear to auscultation bilaterally. No wheezes, and no crackles HEART: Regular rate and rhythm, normal S1 and S2, no murmurs, rubs or gallops ABDOMEN: Soft, nontender, normoactive bowel sounds. No guarding, no rebound. No masses EXTREMITIES: Normal range of motion, no edema. No clubbing or cyanosis. No cords, erythema, or tenderness NEUROLOGICAL: Cranial nerves II through XII intact. 5/5 strength and sensation in all extremities, Normal speech, normal gait SKIN: Warm, Dry, normal turgor, no rashes or lesions noted. " Medical Decision Making - Medical Decision Making 07/21/17 17:15 62 M with ETOH intoxication. No clinical s/s of traumatic injury. - Metabolize in ER - Reassess 07/21/17 17:51 Pt reassessed - ambulatory in ER with steady gait. Awake, alert, clinically sober. Pt denies any complaints. Pt is well appearing, vitals normal, clinically stable for DC.
== END 2017-07-21 18:47 | disposition home or self-care (01) ==
LOC: JER 14:49
DX: F10.220 Alcohol dependence with intoxication, uncomplicated (principal); I10 Essential (primary) hypertension; C45.9 Mesothelioma, unspecified; Z59.0 Homelessness
CPT/HCPCS: 99283-25

== ENCOUNTER 2017-07-21 20:56 | Emergency (ER) | payer OTHER ==
--- NOTE | 2017-07-21 21:18 | PDOC ---
Rapid Medical Evaluation Time Seen by Provider: 07/21/17 21:18 Medical Evaluation: Allergies Allergy/AdvReac Type Severity Reaction Status Date / Time Fish Containing Products Allergy Mild Verified 07/21/17 16:25 No Known Drug Allergies Allergy Verified 07/21/17 16:25 07/21/17 21:19 62 year old male with HTN, mesothelioma, DVTs, and chronic EtOH abuse brought in by ambulance for intoxication. No other complaints. To Main ED for further evaluation.
[2017-07-21 21:26] VITALS: BP 122/89; PULSE 94; TEMP 97.9; BMI 33.0
--- NOTE | 2017-07-22 00:50 | PDOC ---
History of Present Illness - General History Source: Patient, Old Records Exam Limitations: Intoxication - History of Present Illness Initial Comments: 07/22/17 00:51 The patient is a 62 year old male brought via EMS, with a significant past medical history of HTN, mesothelioma, DVTs, and chronic EtOH abuse , who presents to the emergency department with alcohol intoxication. The patient has no other complaints. This history is limited secondary to the patients intoxication. The patient is very well known to the ED, as he comes almost everyday for alcohol intoxication. Patient was last seen in the ED earlier this morning and discharged earlier today. Allergies: NKDA Social history: Alcohol abuse. PCP: Dr. Garima Bridges <Altaf William - Last Filed: 07/22/17 00:51> <Sue Casanova - Last Filed: 07/22/17 02:37> - General Chief Complaint: Alcohol intoxication Stated Complaint: INTOX Time Seen by Provider: 07/21/17 21:18 Past History <Altaf William - Last Filed: 07/22/17 00:51> - Past Medical History Anemia: No Asthma: No Cancer: Yes (mesothelioma) Cardiac Disorders: No CVA: No COPD: No CHF: No DVT: No Dementia: No Diabetes: No GI Disorders: No Disorders: No HTN: Yes Hypercholesterolemia: No Kidney Stones: No Liver Disease: No Psychiatric Problems: Yes (alcoholism) Seizures: No Thyroid Disease: No - Surgical History Abdominal Surgery: No Appendectomy: No Cardiac Surgery: No Cholecystectomy: No Lung Surgery: No Neurologic Surgery: No Orthopedic Surgery: No - Family Disease History Family Disease History: CA: Mother - Reproductive History Testicular Surgery: No - Immunization History TDAP Vaccination: Yes Immunization Up to Date: Yes - Suicide/Smoking/Psychosocial Hx Smoking Status: No Smoking History: Never smoked Have you smoked in the past 12 months: No Number of Cigarettes Smoked Daily: 0 Cigars Per Day: 0 Information on smoking cessation initiated: No 'Breaking Loose' booklet given: 11/02/16 Hx Alcohol Use: No Drug/Substance Use Hx: No Substance Use Type: Alcohol Hx Substance Use Treatment: Yes <Sue Casanova - Last Filed: 07/22/17 02:37> - Past Medical History Allergies/Adverse Reactions: Allergies Allergy/AdvReac Type Severity Reaction Status Date / Time Fish Containing Products Allergy Mild Verified 07/21/17 21:24 No Known Drug Allergies Allergy Verified 07/21/17 21:24 Home Medications: Ambulatory Orders NK [No Known Home Medication] 04/03/17 Review of Systems - Review of Systems Able to Perform ROS?: No Comments:: 07/22/17 00:53 Limited due to patient intoxication. <Altaf William - Last Filed: 07/22/17 00:51> *Physical Exam - Vital Signs Last Vital Signs Temp Pulse Resp BP Pulse Ox 97.9 F 94 H 20 122/89 94 L 07/21/17 21:24 07/21/17 21:24 07/21/17 21:24 07/21/17 21:24 07/21/17 21:24 - Physical Exam Comments: 07/22/17 00:53 GENERAL: (+) Intoxicated. In no acute distress. HEAD: No signs of trauma EYES: PERRLA, EOMI, sclera anicteric, conjunctiva clear ENT: Auricles normal inspection, hearing grossly normal, nares patent, oropharynx clear without exudates. Moist mucosa NECK: Normal ROM, supple, no lymphadenopathy, JVD, or masses LUNGS: Breath sounds equal, clear to auscultation bilaterally. No wheezes, and no crackles HEART: Regular rate and rhythm, normal S1 and S2, no murmurs, rubs or gallops ABDOMEN: Soft, nontender, normoactive bowel sounds. No guarding, no rebound. No masses EXTREMITIES: Normal range of motion, no edema. No clubbing or cyanosis. No cords , erythema, or tenderness BACK: No midline spinal tenderness in cervical/thoracic/lumbar region NEUROLOGICAL: Normal speech, cranial nerves intact, negative pronator drift, 5/ 5 strength in all 4 extremities, normal sensation to light touch in all 4 extremities, normal cerebellar exam, normal reflexes and tone SKIN: Warm, Dry, normal turgor, no rashes or lesions noted. <Altaf William - Last Filed: 07/22/17 00:51> - Vital Signs Last Vital Signs Temp Pulse Resp BP Pulse Ox 97.9 F 94 H 20 122/89 94 L 07/21/17 21:24 07/21/17 21:24 07/21/17 21:24 07/21/17 21:24 07/21/17 21:24 <Sue Casanova - Last Filed: 07/22/17 02:37> *DC/Admit/Observation/Transfer - Attestations Scribe Attestion: 07/22/17 00:53 Documentation prepared by Altaf William, acting as certified medical dosimetrist for Sue Casanova MD <Altaf William - Last Filed: 07/22/17 00:51>
[2017-07-22] MEDS ORDERED: chlordiazePOXIDE HCL 25 MG CAPSULE PO ONE (06:20)
--- NOTE | 2017-07-22 06:21 | PDOC ---
*Physical Exam - Vital Signs Last Vital Signs Temp Pulse Resp BP Pulse Ox 97.9 F 94 H 20 122/89 94 L 07/21/17 21:24 07/21/17 21:24 07/21/17 21:24 07/21/17 21:24 07/21/17 21:24 *DC/Admit/Observation/Transfer Diagnosis at time of Disposition: Alcohol intoxication - Discharge Dispostion Disposition: HOME Condition at time of disposition: Improved Admit: No - Referrals - Patient Instructions Printed Discharge Instructions: DI for Alcohol Abuse - Post Discharge Activity
[2017-07-22] MEDS ORDERED: chlordiazePOXIDE HCL 25 MG CAPSULE ONE (06:30)
== END 2017-07-22 07:00 | disposition home or self-care (01) ==
LOC: JER 20:56
DX: F10.220 Alcohol dependence with intoxication, uncomplicated (principal); I10 Essential (primary) hypertension; C45.9 Mesothelioma, unspecified; Z59.0 Homelessness
CPT/HCPCS: 99283-25

== ENCOUNTER 2017-07-22 14:11 | Emergency (ER) | payer OTHER ==
[2017-07-22 14:24] VITALS: PULSE 86; TEMP 97.7; BMI 33.0
--- NOTE | 2017-07-22 15:11 | PDOC ---
History of Present Illness - General Chief Complaint: Alcohol intoxication Stated Complaint: Alcohol intoxication Time Seen by Provider: 07/22/17 14:37 History Source: Patient Exam Limitations: Intoxication - History of Present Illness Initial Comments: 07/22/17 15:29 Pt. is a 62 y/o M well known to the ED with PMH of HTN, alcoholism, mesothelioma who is BIBA for alcohol intoxication. Pt. was seen earlier this morning for intoxication. Denies any complaints at this time. Denies fevers, chills, n/v/d, shortness of breath, CP or urinary symptoms. Past History - Travel Traveled outside of the country in the last 30 days: No Close contact w/someone who was outside of country & ill: No - Past Medical History Allergies/Adverse Reactions: Allergies Allergy/AdvReac Type Severity Reaction Status Date / Time Fish Containing Products Allergy Mild Verified 07/22/17 14:24 No Known Drug Allergies Allergy Verified 07/22/17 14:24 Home Medications: Ambulatory Orders NK [No Known Home Medication] 04/03/17 Anemia: No Asthma: No Cancer: Yes (mesothelioma) Cardiac Disorders: No CVA: No COPD: No CHF: No DVT: No Dementia: No Diabetes: No GI Disorders: No Disorders: No HTN: Yes Hypercholesterolemia: No Kidney Stones: No Liver Disease: No Psychiatric Problems: Yes (alcoholism) Seizures: No Thyroid Disease: No - Surgical History Abdominal Surgery: No Appendectomy: No Cardiac Surgery: No Cholecystectomy: No Lung Surgery: No Neurologic Surgery: No Orthopedic Surgery: No - Family Disease History Family Disease History: CA: Mother - Reproductive History Testicular Surgery: No - Immunization History TDAP Vaccination: Yes Immunization Up to Date: Yes - Suicide/Smoking/Psychosocial Hx Smoking Status: No Smoking History: Never smoked Have you smoked in the past 12 months: No Number of Cigarettes Smoked Daily: 0 Cigars Per Day: 0 'Breaking Loose' booklet given: 11/02/16 Hx Alcohol Use: Yes Drug/Substance Use Hx: No Substance Use Type: Alcohol Hx Substance Use Treatment: Yes Review of Systems - Review of Systems Able to Perform ROS?: Yes Is the patient limited [place]ican proficient: No Constitutional: Yes: Other (intoxicated). No: Chills, Fever, Weakness HEENTM: No: Ear Pain, Throat Pain, Mouth Pain, Difficulty Swallowing Respiratory: No: Cough, Shortness of Breath, Wheezing Cardiac (ROS): No: Chest Pain, Lightheadedness, Palpitations ABD/GI: No: Diarrhea, Nausea, Vomiting Musculoskeletal: No: Back Pain, Neck Pain Integumentary: No: Bruising, Erythema, Rash Neurological: No: Headache, Paresthesia, Weakness All Other Systems: Reviewed and Negative *Physical Exam - Vital Signs Last Vital Signs Temp Pulse Resp BP Pulse Ox 97.7 F 86 20 105/66 95 07/22/17 14:20 07/22/17 14:20 07/22/17 14:20 07/22/17 14:20 07/22/17 14:20 - Physical Exam General Appearance: Yes: Nourished, Disheveled, Alcohol on Breath, Intoxicated HEENT: positive: EOMI, DOUGLAS, Normal Voice Respiratory/Chest: positive: Lungs Clear, Normal Breath Sounds. negative: Respiratory Distress, Accessory Muscle Use, Rhonchi, Stridor, Wheezing Cardiovascular: positive: Regular Rhythm, Regular Rate, S1, S2 (present). negative: Murmur Gastrointestinal/Abdominal: positive: Normal Bowel Sounds, Flat, Soft. 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 negative: Fully Oriented (intoxicated) Medical Decision Making - Medical Decision Making 07/22/17 15:36 Pt. is a 62 y/o M with PMH of alcholism, presenting for intox. Exam benign. No new signs of trauma. Will allow pt to metabolize alcohol at this time. 07/22/17 19:00 Pt. sleeping in ED. Still intoxicated. Sign out given to Steff Casanova NP *DC/Admit/Observation/Transfer Diagnosis at time of Disposition: Alcohol intoxication Qualifiers: Complication of substance-induced condition: uncomplicated Qualified Code(s): F10.920 - Alcohol use, unspecified with intoxication, uncomplicated - Discharge Dispostion Disposition: HOME Condition at time of disposition: Stable Admit: No - Referrals - Patient Instructions Printed Discharge Instructions: DI for Alcohol Abuse - Post Discharge Activity
[2017-07-22 18:33] VITALS: BP 110/78
--- NOTE | 2017-07-22 19:23 | PDOC ---
*Physical Exam - Vital Signs Last Vital Signs Temp Pulse Resp BP Pulse Ox 97.7 F 86 17 110/78 98 07/22/17 14:20 07/22/17 14:20 07/22/17 18:32 07/22/17 18:32 07/22/17 18:32 - Physical Exam General Appearance: Yes: Disheveled, Alcohol on Breath Gastrointestinal/Abdominal: negative: Normal Bowel Sounds, Tender, Flat, Soft, Organomegaly, Pulsatile Mass, Increased Bowel Sounds, Decreased BS, Protuberent , Distended, Guarding, Rebound, Tenderness, Hernia, Mass, Hepatomegaly, Spleenomegaly, Other Extremity: positive: Normal Capillary Refill, Normal Inspection, Normal Range of Motion Neurologic: positive: Other (normocephalic, no sign of trauma) Medical Decision Making - Medical Decision Making 07/23/17 00:57 patient alert awake. 07/23/17 05:28 patient coughing and nasal congestion. influenza and albuterol neb *DC/Admit/Observation/Transfer Diagnosis at time of Disposition: Alcohol intoxication Qualifiers: Complication of substance-induced condition: uncomplicated Qualified Code(s): F10.920 - Alcohol use, unspecified with intoxication, uncomplicated - Discharge Dispostion Disposition: HOME - Referrals - Patient Instructions Printed Discharge Instructions: DI for Alcohol Abuse - Post Discharge Activity
[2017-07-23] MEDS ORDERED: ALBUTEROL SO4 0.083% IH SOL 2.5 MG/3 ML VIAL.NEB. NEB ONE (03:18)
== END 2017-07-23 06:14 | disposition home or self-care (01) ==
LOC: JER 14:11
PROC: 3E0F7GC Introduction of Other Therapeutic Substance into Respiratory Tract, Via Natural or Artificial Opening (ICD-10-PCS; principal; 2017-07-22)
DX: F10.220 Alcohol dependence with intoxication, uncomplicated (principal); I10 Essential (primary) hypertension; C45.9 Mesothelioma, unspecified; Z59.0 Homelessness
CPT/HCPCS: 99282-25

== ENCOUNTER 2017-07-26 19:38 | Emergency (ER) | payer OTHER ==
[2017-07-26 20:36] VITALS: BMI 32.5
--- NOTE | 2017-07-26 20:53 | PDOC ---
History of Present Illness - General Chief Complaint: Alcohol intoxication Stated Complaint: ALCOHOL INTOXICATION Time Seen by Provider: 07/26/17 20:53 History Source: Patient - History of Present Illness Initial Comments: 07/26/17 21:12 62 year old male with history of HTN, mesothelioma, DVTs, and chronic ETOH abusereports to the ER s/p "1 pint of vodka" / intoxication. no sign of trauma noted. patient is asking for a blanket c/o b/l leg pain and back. denies trauma or injury. Past History - Past Medical History Allergies/Adverse Reactions: Allergies Allergy/AdvReac Type Severity Reaction Status Date / Time Fish Containing Products Allergy Mild Verified 07/26/17 20:33 No Known Drug Allergies Allergy Verified 07/26/17 20:33 Home Medications: Ambulatory Orders NK [No Known Home Medication] 04/03/17 Anemia: No Asthma: No Cancer: Yes (mesothelioma) Cardiac Disorders: No CVA: No COPD: No CHF: No DVT: No Dementia: No Diabetes: No GI Disorders: No Disorders: No HTN: Yes Hypercholesterolemia: No Kidney Stones: No Liver Disease: No Psychiatric Problems: Yes (alcoholism) Seizures: No Thyroid Disease: No - Surgical History Abdominal Surgery: No Appendectomy: No Cardiac Surgery: No Cholecystectomy: No Lung Surgery: No Neurologic Surgery: No Orthopedic Surgery: No - Family Disease History Family Disease History: CA: Mother - Reproductive History Testicular Surgery: No - Immunization History TDAP Vaccination: Yes Immunization Up to Date: Yes - Suicide/Smoking/Psychosocial Hx Smoking Status: No Smoking History: Never smoked Have you smoked in the past 12 months: No Number of Cigarettes Smoked Daily: 0 Cigars Per Day: 0 Information on smoking cessation initiated: No 'Breaking Loose' booklet given: 11/02/16 Hx Alcohol Use: No Drug/Substance Use Hx: No Substance Use Type: Alcohol Hx Substance Use Treatment: Yes Review of Systems - Review of Systems Able to Perform ROS?: Yes Is the patient limited Kiswahili proficient: No Constitutional: No: Symptoms Reported, See HPI, Chills, Diaphoresis, Fever, Loss of Appetite, Malaise, Night Sweats, Weakness, Weight Stable, Unintentional Wgt. Loss, Unexplained wgt Loss, Other HEENTM: Yes: Other (normocephalic. no evidence of trauma). No: Symptoms Reported, See HPI, Eye Pain, Blurred Vision, Tearing, Recent change in vision, Double Vision, Cataracts, Ear Pain, Ocular Prothesis, Ear Discharge, Nose Pain, Nose Congestion, Tinnitus, Nose Bleeding, Hearing Loss, Throat Pain, Throat Swelling, Mouth Pain, Dental Problems, Difficulty Swallowing, Mouth Swelling Musculoskeletal: Yes: Back Pain *Physical Exam - Vital Signs Last Vital Signs Temp Pulse Resp BP Pulse Ox 98.9 F 89 20 142/72 98 07/26/17 20:33 07/26/17 20:33 07/26/17 20:33 07/26/17 20:33 07/26/17 20:33 - Physical Exam General Appearance: Yes: Disheveled, Alcohol on Breath HEENT: positive: Other (normocephalic) Respiratory/Chest: positive: Lungs Clear, Normal Breath Sounds Cardiovascular: positive: Regular Rhythm, Regular Rate Gastrointestinal/Abdominal: positive: Normal Bowel Sounds Extremity: positive: Normal Capillary Refill, Normal Inspection, Normal Range of Motion Integumentary: positive: Normal Color, Dry, Warm Neurologic: positive: Fully Oriented, Alert, Normal Mood/Affect Medical Decision Making - Medical Decision Making 07/27/17 06:06 A: alcohol abuse P; patient is alert awake. will d/c home *DC/Admit/Observation/Transfer Diagnosis at time of Disposition: Alcohol intoxication Qualifiers: Complication of substance-induced condition: uncomplicated Qualified Code(s): F10.920 - Alcohol use, unspecified with intoxication, uncomplicated - Referrals Referrals: Garima Bridges MD [Primary Care Provider] - - Patient Instructions Printed Discharge Instructions: DI for Alcohol Abuse Additional Instructions: avoid drinking alcohol - Post Discharge Activity
[2017-07-27 03:27] VITALS: TEMP 98.5
[2017-07-27 03:29] VITALS: BP 148/70; PULSE 88
== END 2017-07-27 06:38 | disposition home or self-care (01) ==
LOC: JER 19:38
DX: F10.220 Alcohol dependence with intoxication, uncomplicated (principal); I10 Essential (primary) hypertension; C45.9 Mesothelioma, unspecified
CPT/HCPCS: 99282-25

== ENCOUNTER 2017-07-27 16:52 | Emergency (ER) | payer OTHER ==
[2017-07-27 17:22] VITALS: TEMP 97.7; BMI 33.0
--- NOTE | 2017-07-27 21:05 | PDOC ---
History of Present Illness - General History Source: Patient Exam Limitations: Intoxication - History of Present Illness Initial Comments: 07/27/17 22:24 The patient is a 62 year old male well known to this Emergency Department , with a significant past medical history of hypertension, alcoholism, and mesothelioma, who presents to the emergency department [facility] for alcohol intoxication and back pain. Patient was seen last night with intoxication. Currently he denies any chest pain, shortness of breath, diaphoresis, or palpitations. He denies any nausea or vomiting. He denies any other complaints at this time. <Marjorie Yarbrough - Last Filed: 07/27/17 22:26> <Sue Casanova - Last Filed: 07/28/17 21:33> - General Chief Complaint: Back Pain Stated Complaint: Alcohol intoxication Time Seen by Provider: 07/27/17 17:27 Past History <Marjorie Yarbrough - Last Filed: 07/27/17 22:26> - Past Medical History Anemia: No Asthma: No Cancer: Yes (mesothelioma) Cardiac Disorders: No CVA: No COPD: No CHF: No DVT: No Dementia: No Diabetes: No GI Disorders: No Disorders: No HTN: Yes Hypercholesterolemia: No Kidney Stones: No Liver Disease: No Psychiatric Problems: Yes (alcoholism) Seizures: No Thyroid Disease: No - Surgical History Abdominal Surgery: No Appendectomy: No Cardiac Surgery: No Cholecystectomy: No Lung Surgery: No Neurologic Surgery: No Orthopedic Surgery: No - Family Disease History Family Disease History: CA: Mother - Reproductive History Testicular Surgery: No - Immunization History TDAP Vaccination: Yes Immunization Up to Date: Yes - Suicide/Smoking/Psychosocial Hx Smoking Status: No Smoking History: Never smoked Have you smoked in the past 12 months: No Number of Cigarettes Smoked Daily: 0 Cigars Per Day: 0 'Breaking Loose' booklet given: 11/02/16 Hx Alcohol Use: Yes Drug/Substance Use Hx: No Substance Use Type: Alcohol Hx Substance Use Treatment: Yes <Sue Casanova - Last Filed: 07/28/17 21:33> - Past Medical History Allergies/Adverse Reactions: Allergies Allergy/AdvReac Type Severity Reaction Status Date / Time Fish Containing Products Allergy Mild Verified 07/27/17 17:18 No Known Drug Allergies Allergy Verified 07/27/17 17:18 Home Medications: Ambulatory Orders NK [No Known Home Medication] 07/27/17 Review of Systems - Review of Systems Able to Perform ROS?: No <ZenonAlvaalex - Last Filed: 07/27/17 22:26> *Physical Exam - Vital Signs Last Vital Signs Temp Pulse Resp BP Pulse Ox 97.7 F 113 H 24 133/82 94 L 07/27/17 17:18 07/27/17 17:18 07/27/17 17:18 07/27/17 17:18 07/27/17 17:18 - Physical Exam Comments: 07/27/17 22:26 GENERAL: +Intoxicated. In no acute distress. HEAD: No signs of trauma EYES: PERRLA, EOMI, sclera anicteric, conjunctiva clear ENT: Auricles normal inspection, hearing grossly normal, nares patent, oropharynx clear without exudates. Moist mucosa NECK: Normal ROM, supple, no lymphadenopathy, JVD, or masses LUNGS: Breath sounds equal, clear to auscultation bilaterally. No wheezes, and no crackles HEART: Regular rate and rhythm, normal S1 and S2, no murmurs, rubs or gallops ABDOMEN: Soft, nontender, normoactive bowel sounds. No guarding, no rebound. No masses EXTREMITIES: Normal range of motion, no edema. No clubbing or cyanosis. No cords , erythema, or tenderness BACK: No midline spinal tenderness in cervical/thoracic/lumbar region NEUROLOGICAL: Normal speech, cranial nerves intact, negative pronator drift, 5/ 5 strength in all 4 extremities, normal sensation to light touch in all 4 extremities, normal cerebellar exam, normal reflexes and tone SKIN: Warm, Dry, normal turgor, no rashes or lesions noted. <Marjorie Yarbrough - Last Filed: 07/27/17 22:26> - Vital Signs Last Vital Signs Temp Pulse Resp BP Pulse Ox 97.7 F 113 H 24 133/82 94 L 07/27/17 17:18 07/27/17 17:18 07/27/17 17:18 07/27/17 17:18 07/27/17 17:18 <Sue Casanova - Last Filed: 07/28/17 21:33> *DC/Admit/Observation/Transfer - Attestations Scribe Attestion: 07/27/17 22:25 Documentation prepared by Marjorie Yarbrough, acting as medical assistant for Sue Casanova MD. <Marjorie Yarbrough - Last Filed: 07/27/17 22:26> <Sue Casanova - Last Filed: 07/28/17 21:33> Diagnosis at time of Disposition: Intoxication - Discharge Dispostion Disposition: HOME - Referrals Referrals: Garima Bridges MD [Primary Care Provider] - - Patient Instructions - Post Discharge Activity
--- NOTE | 2017-07-28 04:12 | PDOC ---
*Physical Exam - Vital Signs Last Vital Signs Temp Pulse Resp BP Pulse Ox 97.7 F 113 H 24 133/82 94 L 07/27/17 17:18 07/27/17 17:18 07/27/17 17:18 07/27/17 17:18 07/27/17 17:18 Medical Decision Making - Medical Decision Making 07/28/17 04:[address] Casanova. Pt well known to this ED for frequent visits for etoh intox, currently pending re-eval for clinical sobriety. On my eval, pt clinically sober with no complaints. No evidence of trauma on physical exam. Seen ambulating to the bathroom with steady gait. Pt stable for DC. *DC/Admit/Observation/Transfer Diagnosis at time of Disposition: Intoxication - Discharge Dispostion Disposition: HOME Admit: No - Referrals Referrals: Garima Bridges MD [Primary Care Provider] - - Patient Instructions - Post Discharge Activity - Attestations Physician Attestion: 07/28/17 04:11 I, Dr. Fernie Rosenthal MD, attest that this document has been prepared under my direction and personally reviewed by me in its entirety. I further attest, that it accurately reflects all work, treatment, procedures and medical decision -making performed by me.
[2017-07-28 05:19] VITALS: BP 130/88; PULSE 60
== END 2017-07-28 05:57 | disposition home or self-care (01) ==
LOC: JER 16:52
DX: F10.220 Alcohol dependence with intoxication, uncomplicated (principal); I10 Essential (primary) hypertension; C45.9 Mesothelioma, unspecified
CPT/HCPCS: 99282-25

== ENCOUNTER 2017-07-29 13:15 | Emergency (ER) | payer OTHER ==
[2017-07-29 14:05] VITALS: BMI 33.0
--- NOTE | 2017-07-29 15:25 | PDOC ---
Attending Attestation - Resident Resident Name: Kelvin Kee - ED Attending Attestation I have performed the following: I have examined & evaluated the patient, The case was reviewed & discussed with the resident, I agree w/resident's findings & plan, Exceptions are as noted - Medical Decision Making 07/29/17 16:26 Patient is a 62-year-old male with history of alcohol abuse, mesothelioma, well- known to this M.D. who presents for cough productive of green sputum and acute alcohol intoxication. In the ER, patient is somnolent but easily arousable, with alcohol on breath. We'll obtain chest x-ray to rule out pneumonia. Patient requesting detox. Will reassess. Will endorsed Dr. Rashid final disposition. <Robson Ball - Last Filed: 07/29/17 16:26> - HPI HPI: 07/29/17 15:50 The patient is a 62 year old male, well known to this emergency room, with a significant past medical history of alcoholism and emphysema, who presents to the ED with acute alcohol intoxication and cough productive of green sputum since earlier today. Patient was last seen on 07/27/17 with similar complaints. Currently he denies any chest pain, shortness of breath, diaphoresis, or palpitations. He denies any nausea or vomiting. He denies any other complaints at this time. Patient is requesting detox at this time. Allergies: NKDA - Physicial Exam PE: 07/29/17 15:58 CONSTITUTIONAL: +Intoxicated, +alcohol on breath, +somnolent. . Well-appearing; well-nourished; in no apparent distress. HEAD: Normocephalic; atraumatic EYES: PERRL; EOM intact ENMT: External appears normal; normal oropharynx NECK: Supple; non-tender; no cervical lymphadenopathy. CARD: Normal S1, S2; no murmurs, rubs, or gallops RESP: Normal chest excursion with respiration; breath sounds clear and equal bilaterally; no wheezes, rhonchi, or rales ABD: Soft, non-distended; non-tender; no palpable organomegaly, no palpable hernias EXT: Normal ROM in all four extremities; non-tender to palpation; distal pulses intact SKIN: Warm, dry, no rash NEURO: No focal neurological deficiencies. - Medical Decision Making 07/29/17 15:55 Documentation prepared by Marjorie Yarbrough, acting as medical doctor for Robson Ball MD. <Marjorie Yarbrough - Last Filed: 07/29/17 16:30>
--- NOTE | 2017-07-29 15:54 | PDOC ---
History of Present Illness - General Chief Complaint: Back Pain Stated Complaint: BACK PAIN Time Seen by Provider: 07/29/17 14:57 - History of Present Illness Initial Comments: 07/29/17 15:36 Mr. De Leon is a 62 yo male w/ pmh of mesothelioma and alcohol abuse who presents complaining of a 2 day history of loss of energy and cough productive of green sputum. He reports that he would like to receive detox as well and that he feels sad because it is wright's day. Mr. De Leon denies chest pain, headache and dizziness. Denies fever, chills, nausea , vomit, diarrhea and constipation. Denies dysuria, frequency, urgency and hematuria. Allergies: Fish products Past History - Past Medical History Allergies/Adverse Reactions: Allergies Allergy/AdvReac Type Severity Reaction Status Date / Time Fish Containing Products Allergy Mild Verified 07/29/17 13:26 No Known Drug Allergies Allergy Verified 07/29/17 13:26 Home Medications: Ambulatory Orders NK [No Known Home Medication] 07/27/17 Anemia: No Asthma: No Cancer: Yes (mesothelioma) Cardiac Disorders: No CVA: No COPD: No CHF: No DVT: No Dementia: No Diabetes: No GI Disorders: No Disorders: No HTN: Yes Hypercholesterolemia: No Kidney Stones: No Liver Disease: No Psychiatric Problems: Yes (alcoholism) Seizures: No Thyroid Disease: No - Surgical History Abdominal Surgery: No Appendectomy: No Cardiac Surgery: No Cholecystectomy: No Lung Surgery: No Neurologic Surgery: No Orthopedic Surgery: No - Family Disease History Family Disease History: CA: Mother - Reproductive History Testicular Surgery: No - Immunization History TDAP Vaccination: Yes Immunization Up to Date: Yes - Suicide/Smoking/Psychosocial Hx Smoking Status: No Smoking History: Never smoked Have you smoked in the past 12 months: No Number of Cigarettes Smoked Daily: 0 Cigars Per Day: 0 Information on smoking cessation initiated: No 'Breaking Loose' booklet given: 11/02/16 Hx Alcohol Use: No Drug/Substance Use Hx: No Substance Use Type: Alcohol Hx Substance Use Treatment: Yes Review of Systems - Review of Systems Comments:: 07/29/17 15:40 GENERAL/CONSTITUTIONAL: No fever or chills. No weakness. HEAD, EYES, EARS, NOSE AND THROAT: No change in vision. No ear pain or discharge. No sore throat. CARDIOVASCULAR: No chest pain or shortness of breath RESPIRATORY: +Cough as described over last 2 days. GASTROINTESTINAL: No nausea, vomiting, diarrhea or constipation. GENITOURINARY: No dysuria, frequency, or change in urination. MUSCULOSKELETAL: No joint or muscle swelling or pain. No neck or back pain. SKIN: No rash NEUROLOGIC: No headache, vertigo, loss of consciousness, or change in strength/ sensation. ENDOCRINE: No increased thirst. No abnormal weight change HEMATOLOGIC/LYMPHATIC: No anemia, easy bleeding, or history of blood clots. ALLERGIC/IMMUNOLOGIC: No hives or skin allergy. *Physical Exam - Vital Signs Last Vital Signs Temp Pulse Resp BP Pulse Ox 97.1 F L 84 18 115/68 95 07/29/17 13:15 07/29/17 13:15 07/29/17 13:15 07/29/17 13:15 07/29/17 13:15 - Physical Exam Comments: 07/29/17 15:41 GENERAL: Awake, alert, and fully oriented, in no acute distress HEAD: No signs of trauma, normocephalic, atraumatic EYES: PERRLA, EOMI, sclera anicteric, conjunctiva clear ENT: Auricles normal inspection, hearing grossly normal, nares patent, oropharynx clear without exudates. Moist mucosa NECK: Normal ROM, supple, no lymphadenopathy, JVD, or masses LUNGS: No distress, speaks full sentences, clear to auscultation bilaterally HEART: Regular rate and rhythm, normal S1 and S2, no murmurs, rubs or gallops, peripheral pulses normal and equal bilaterally. ABDOMEN: Soft, nontender, normoactive bowel sounds. No guarding, no rebound. No masses EXTREMITIES: Normal inspection, Normal range of motion, strength intact, no edema. No clubbing or cyanosis. NEUROLOGICAL: Cranial nerves II through XII grossly intact. Normal speech, normal gait, no focal sensorimotor deficits SKIN: Warm, Dry, normal turgor, no rashes or lesions noted. ED Treatment Course - RADIOLOGY Radiology Studies Ordered: Category Date Time Status CHEST PA & LAT [RAD] Stat Radiology 07/29/17 15:36 Ordered Medical Decision Making - Medical Decision Making 07/29/17 16:55 Mr. De Leon is a 62 yo male w/ pmh of mesothelioma and alcohol abuse well known to the service who presents requesting detox. Patient further endorsed recent cough with green sputum. Social work contacted and attempted to find placement in detox program however was unsuccessful as all local programs are full. Contact information for detox programs given to patient with instructions to contact in the morning. Patient refused chest x-ray for evaluation of described cough. Patient currently resting comfortably. 07/29/17 21:38 Patient changed mind about chest x-ray and allowed images to be taken - read currently pending. Patient observed to be sleeping comfortably. Patient signed out to Dr. Rashid for further care. *DC/Admit/Observation/Transfer Diagnosis at time of Disposition: Cough - Referrals Referrals: Garima Bridges MD [Primary Care Provider] - - Patient Instructions - Post Discharge Activity
[2017-07-29 19:26] VITALS: BP 136/88; PULSE 95; TEMP 99
[2017-07-30] MEDS ORDERED: chlordiazePOXIDE HCL 25 MG CAPSULE PO ONE (06:22)
--- NOTE | 2017-07-30 06:22 | PDOC ---
*Physical Exam - Vital Signs Last Vital Signs Temp Pulse Resp BP Pulse Ox 99.0 F 95 H 16 136/88 98 07/29/17 19:25 07/29/17 19:25 07/29/17 19:25 07/29/17 19:25 07/29/17 17:30 *DC/Admit/Observation/Transfer Diagnosis at time of Disposition: Cough, Alcohol abuse with intoxication - Discharge Dispostion Disposition: HOME Condition at time of disposition: Stable Admit: No - Referrals Referrals: Garima Bridges MD [Primary Care Provider] - - Patient Instructions Printed Discharge Instructions: DI for Alcohol Abuse - Post Discharge Activity
[2017-07-30] MEDS ORDERED: chlordiazePOXIDE HCL 25 MG CAPSULE ONE (06:31)
[2017-07-30] MEDS ORDERED: ACETAMINOPHEN 325 MG TABLET (FP) ONE (06:34)
[2017-07-30] MEDS ORDERED: ACETAMINOPHEN 325 MG TABLET (FP) PO ONE (06:44)
== END 2017-07-30 06:48 | disposition home or self-care (01) ==
LOC: JER 13:15
DX: F10.220 Alcohol dependence with intoxication, uncomplicated (principal); R05 Cough; I10 Essential (primary) hypertension; C45.9 Mesothelioma, unspecified; Z59.0 Homelessness
CPT/HCPCS: 71046-TC-FY; 99283-25

== ENCOUNTER 2017-07-30 16:19 | Emergency (ER) | payer OTHER ==
--- NOTE | 2017-07-30 16:55 | PDOC ---
History of Present Illness - General History Source: Patient Exam Limitations: No Limitations - History of Present Illness Initial Comments: 07/30/17 17:23 The patient is a 62 year old male, well known to the emergency department, with a significant past medical history of alcoholism, hypertension, mesothelioma, who presents to the emergency department with alcohol intoxication. The patient denies any complaints. The patient denies any recent falls or trauma. He denies any recent fever, chills, nausea or vomiting. He denies any recent urinary symptoms, constipation or diarrhea. He denies any recent chest pain or shortness of breath. <Stevenson Mosley - Last Filed: 07/30/17 17:22> <Skye Rashid - Last Filed: 07/30/17 19:14> - General Chief Complaint: Alcohol intoxication Stated Complaint: Alcohol intoxication Time Seen by Provider: 07/30/17 16:36 Past History <Stevenson Mosley - Last Filed: 07/30/17 17:22> - Past Medical History Anemia: No Asthma: No Cancer: Yes (mesothelioma) Cardiac Disorders: No CVA: No COPD: No CHF: No DVT: No Dementia: No Diabetes: No GI Disorders: No Disorders: No HTN: Yes Hypercholesterolemia: No Kidney Stones: No Liver Disease: No Psychiatric Problems: Yes (alcoholism) Seizures: No Thyroid Disease: No - Surgical History Abdominal Surgery: No Appendectomy: No Cardiac Surgery: No Cholecystectomy: No Lung Surgery: No Neurologic Surgery: No Orthopedic Surgery: No - Family Disease History Family Disease History: CA: Mother - Reproductive History Testicular Surgery: No - Immunization History TDAP Vaccination: Yes Immunization Up to Date: Yes - Suicide/Smoking/Psychosocial Hx Smoking Status: No Smoking History: Never smoked Have you smoked in the past 12 months: No Number of Cigarettes Smoked Daily: 0 Cigars Per Day: 0 'Breaking Loose' booklet given: 11/02/16 Hx Alcohol Use: No Drug/Substance Use Hx: No Substance Use Type: Alcohol Hx Substance Use Treatment: Yes <Skye Rashid - Last Filed: 07/30/17 19:14> - Past Medical History Allergies/Adverse Reactions: Allergies Allergy/AdvReac Type Severity Reaction Status Date / Time Fish Containing Products Allergy Mild Verified 07/29/17 13:26 No Known Drug Allergies Allergy Verified 07/29/17 13:26 Home Medications: Ambulatory Orders NK [No Known Home Medication] 07/27/17 Review of Systems - Review of Systems Comments:: 07/30/17 17:23 GENERAL/CONSTITUTIONAL: No fever or chills. No weakness. HEAD, EYES, EARS, NOSE AND THROAT: No change in vision. No ear pain or discharge. No sore throat. GASTROINTESTINAL: No nausea, vomiting, diarrhea or constipation. GENITOURINARY: No dysuria, frequency, or change in urination. CARDIOVASCULAR: No chest pain or shortness of breath. RESPIRATORY: No cough, wheezing, or hemoptysis. MUSCULOSKELETAL: No joint or muscle swelling or pain. No neck or back pain. SKIN: No rash NEUROLOGIC: No headache, vertigo, loss of consciousness, or change in strength/ sensation. ENDOCRINE: No increased thirst. No abnormal weight change. HEMATOLOGIC/LYMPHATIC: No anemia, easy bleeding, or history of blood clots. ALLERGIC/IMMUNOLOGIC: No hives or skin allergy. <Stevenson Mosley - Last Filed: 07/30/17 17:22> *Physical Exam - Physical Exam Comments: 07/30/17 17:23 Constitutional: Awake, alert, oriented. No acute distress. Head: Normocephalic. Atraumatic Eyes: PERRL. EOMI. Conjunctivae are not pale. ENT: Mucous membranes are moist and intact. Posterior pharynx without exudates or erythema. Uvula midline. Neck: Supple. Full ROM. No lymphadenopathy. Cardiovascular: Regular rate. Regular rhythm. S1, S2 regular. Distal pulses are 2+ and symmetric. Pulmonary/Chest: No evidence of respiratory distress. Clear to auscultation bilaterally No wheezing, rales or rhonchi. Abdominal: Soft and non-distended. There is no tenderness. No rebound, guarding or rigidity. No organomegaly. No palpable masses. Good bowel sounds. Back: No CVA tenderness. Musculoskeletal: No edema. No cyanosis. No clubbing. Full range of motion in all extremities. No calf tenderness. Radial/pedal pulses are intact and 2+ bilaterally Skin: Skin is warm and dry. No petechiae. No purpura. Neurological: Alert and oriented to person, place, and time. Cranial nerves II -XII are grossly intact. Normal speech. Strength is grossly symmetric. No sensory deficits. <Stevenson Mosley - Last Filed: 07/30/17 17:22> Medical Decision Making - Medical Decision Making 07/30/17 16:54 a/p: 62yo male with hx of ETOH abuse -requesting detox - call placed to Jefe Das [phone] who states to call him at 8am to get Peter into detox -no external signs of trauma -will allow patient to metabolize -will monitor and reassess 07/30/17 18:21 pt with clear speech no slurred speech 07/30/17 19:14 pt walked out of the ED eloped steady gait clinically sober no iv in place <Skye Rashid - Last Filed: 07/30/17 19:14> *DC/Admit/Observation/Transfer - Attestations Scribe Attestion: 07/30/17 17:24 Documentation prepared by Stevenson Mosley, acting as remote medical coder for Skye Rashid DO. <Stevenson Mosley - Last Filed: 07/30/17 17:22> - Discharge Dispostion Admit: No - Attestations Physician Attestion: 07/30/17 19:14 I, Dr. Skye Rashid DO, attest that this document has been prepared under my direction and personally reviewed by me in its entirety. I further attest, that it accurately reflects all work, treatment, procedures and medical decision -making performed by me. <Skye Rashid - Last Filed: 07/30/17 19:14> Diagnosis at time of Disposition: Eloped, Alcohol use disorder - Discharge Dispostion Disposition: ELOPED Condition at time of disposition: Good - Referrals Referrals: Garima Bridges MD [Primary Care Provider] - - Patient Instructions - Post Discharge Activity
[2017-07-30 17:25] VITALS: BP 114/73; PULSE 78; TEMP 97.9; BMI 27.9
== END 2017-07-30 19:00 | disposition left against medical advice (07) ==
LOC: JER 16:19
DX: F10.220 Alcohol dependence with intoxication, uncomplicated (principal); I10 Essential (primary) hypertension; C45.9 Mesothelioma, unspecified; Z59.0 Homelessness
CPT/HCPCS: 99282-25

== ENCOUNTER 2017-08-06 15:53 | Emergency (ER) | payer OTHER ==
[2017-08-06 16:29] VITALS: BP 131/71; PULSE 91; TEMP 97; BMI 34.8
--- NOTE | 2017-08-06 17:18 | PDOC ---
History of Present Illness - General Chief Complaint: Pain Stated Complaint: INTOX Time Seen by Provider: 08/06/17 17:09 History Source: Patient Exam Limitations: No Limitations - History of Present Illness Initial Comments: 08/06/17 17:18 The patient is a 62 year old male, well known to the emergency department, with a significant past medical history of alcoholism, hypertension, mesothelioma, who presents to the emergency department with alcohol intoxication. He denies fevers, chills, nausea, vomiting, pain with urination. He denies chest pain, shortness of breath, leg pain and abdominal pain. He denies trauma and loss of consciousness. Past History - Past Medical History Allergies/Adverse Reactions: Allergies Allergy/AdvReac Type Severity Reaction Status Date / Time Fish Containing Products Allergy Mild Verified 08/06/17 16:29 No Known Drug Allergies Allergy Verified 08/06/17 16:29 Home Medications: Ambulatory Orders NK [No Known Home Medication] 07/27/17 Anemia: No Asthma: No Cancer: Yes (mesothelioma) Cardiac Disorders: No CVA: No COPD: No CHF: No DVT: No Dementia: No Diabetes: No GI Disorders: No Disorders: No HTN: Yes Hypercholesterolemia: No Kidney Stones: No Liver Disease: No Psychiatric Problems: Yes (alcoholism) Seizures: No Thyroid Disease: No - Surgical History Abdominal Surgery: No Appendectomy: No Cardiac Surgery: No Cholecystectomy: No Lung Surgery: No Neurologic Surgery: No Orthopedic Surgery: No - Family Disease History Family Disease History: CA: Mother - Reproductive History Testicular Surgery: No - Immunization History TDAP Vaccination: Yes Immunization Up to Date: Yes - Suicide/Smoking/Psychosocial Hx Smoking Status: No Smoking History: Never smoked Have you smoked in the past 12 months: No Number of Cigarettes Smoked Daily: 0 Cigars Per Day: 0 Information on smoking cessation initiated: No 'Breaking Loose' booklet given: 11/02/16 Hx Alcohol Use: Yes Drug/Substance Use Hx: No Substance Use Type: Alcohol Hx Substance Use Treatment: Yes Review of Systems - Review of Systems Comments:: 08/06/17 17:31 GENERAL/CONSTITUTIONAL: No fever or chills. CARDIOVASCULAR: No chest pain or shortness of breath RESPIRATORY: No cough, wheezing, or hemoptysis. GASTROINTESTINAL: No nausea, vomiting, diarrhea or constipation. GENITOURINARY: No dysuria, frequency, or change in urination. MUSCULOSKELETAL: No joint or muscle swelling or pain. Positive for lower back pain. SKIN: No rash NEUROLOGIC: No headache, vertigo, loss of consciousness, or change in strength/ sensation. ALLERGIC/IMMUNOLOGIC: No hives or skin allergy. *Physical Exam - Vital Signs Last Vital Signs Temp Pulse Resp BP Pulse Ox 97.0 F L 91 H 22 131/71 96 08/06/17 16:26 08/06/17 16:26 08/06/17 16:26 08/06/17 16:26 08/06/17 16:26 - Physical Exam Comments: 08/06/17 17:32 GENERAL: Awake, alert, and fully oriented, in no acute distress, intoxicated HEAD: No signs of trauma, normocephalic, atraumatic EYES: PERRLA, EOMI, sclera anicteric, conjunctiva clear ENT: Auricles normal inspection, hearing grossly normal, nares patent, oropharynx clear without exudates. Moist mucosa NECK: Normal ROM, supple, no lymphadenopathy, JVD, or masses LUNGS: No distress, speaks full sentences, clear to auscultation bilaterally HEART: Regular rate and rhythm, normal S1 and S2, no murmurs, rubs or gallops, peripheral pulses normal and equal bilaterally. ABDOMEN: Soft, nontender, normoactive bowel sounds. No guarding, no rebound. No masses EXTREMITIES: Normal inspection, Normal range of motion, no edema. No clubbing or cyanosis. NEUROLOGICAL: Cranial nerves II through XII grossly intact. Normal speech, no focal sensorimotor deficits, normal security advisor strength, moving all extremities SKIN: Warm, Dry, normal turgor, no rashes or lesions noted. Medical Decision Making - Medical Decision Making 08/06/17 17:33 The patient is a 62 year old male, well known to the emergency department, with a significant past medical history of alcoholism, hypertension, mesothelioma, who presents to the emergency department with alcohol intoxication. Vital signs stable and normal. Patient has no acute complaints. Back pain is stable, not increased today. Will discharge once clinically sober. *DC/Admit/Observation/Transfer Diagnosis at time of Disposition: Intoxication - Discharge Dispostion Disposition: HOME Condition at time of disposition: Good Admit: No - Referrals - Patient Instructions Printed Discharge Instructions: DI for Low Back Pain, DI for Alcohol Abuse Additional Instructions: Please return if you have any new, worsening or concerning symptoms. - Post Discharge Activity
== END 2017-08-06 21:01 | disposition home or self-care (01) ==
LOC: JER 15:53
DX: F10.220 Alcohol dependence with intoxication, uncomplicated (principal); I10 Essential (primary) hypertension; C45.9 Mesothelioma, unspecified; Z59.0 Homelessness
CPT/HCPCS: 99281-25

== ENCOUNTER → 2017-08-09 | Emergency (ER) | payer OTHER ==
[2017-08-10 02:29] VITALS: BP 151/89; PULSE 82; TEMP 96.6; BMI 35.9
--- NOTE | 2017-08-10 02:34 | PDOC ---
History of Present Illness - General Chief Complaint: Alcohol intoxication Stated Complaint: KNEE PAIN Time Seen by Provider: 08/10/17 02:15 History Source: Patient Exam Limitations: Intoxication - History of Present Illness Initial Comments: 62 yo M history EtOH abuse, well known to this ED presenting with EtOH intoxication. Denies trauma. No complaints at present. History extremely limited by intoxication. Past History - Past Medical History Allergies/Adverse Reactions: Allergies Allergy/AdvReac Type Severity Reaction Status Date / Time Fish Containing Products Allergy Mild Verified 08/10/17 16:43 No Known Drug Allergies Allergy Verified 08/10/17 16:43 Home Medications: Ambulatory Orders NK [No Known Home Medication] 07/27/17 Anemia: No Asthma: No Cancer: Yes (mesothelioma) Cardiac Disorders: No CVA: No COPD: No CHF: No DVT: No Dementia: No Diabetes: No GI Disorders: No Disorders: No HTN: Yes Hypercholesterolemia: No Kidney Stones: No Liver Disease: No Psychiatric Problems: Yes (alcoholism) Seizures: No Thyroid Disease: No - Surgical History Abdominal Surgery: No Appendectomy: No Cardiac Surgery: No Cholecystectomy: No Lung Surgery: No Neurologic Surgery: No Orthopedic Surgery: No - Family Disease History Family Disease History: CA: Mother - Reproductive History Testicular Surgery: No - Immunization History TDAP Vaccination: Yes Immunization Up to Date: Yes - Suicide/Smoking/Psychosocial Hx Smoking Status: No Smoking History: Never smoked Have you smoked in the past 12 months: No Number of Cigarettes Smoked Daily: 0 Cigars Per Day: 0 Information on smoking cessation initiated: No 'Breaking Loose' booklet given: 11/02/16 Hx Alcohol Use: Yes Drug/Substance Use Hx: No Substance Use Type: Alcohol Hx Substance Use Treatment: Yes Review of Systems - Review of Systems Able to Perform ROS?: No (intoxicated) *Physical Exam - Vital Signs Last Vital Signs Temp Pulse Resp BP Pulse Ox 96.6 F L 82 19 151/89 97 08/10/17 02:18 08/10/17 02:18 08/10/17 02:18 08/10/17 02:18 08/10/17 02:18 - Physical Exam Comments: GENERAL: Sleeping, awakens to voice. +AOB. HEAD: No signs of trauma EYES: PERRLA, EOMI, sclera anicteric, conjunctiva clear ENT: Auricles normal inspection, hearing grossly normal, nares patent, oropharynx clear without exudates. Moist mucosa NECK: Normal ROM, supple, no lymphadenopathy, JVD, or masses LUNGS: Breath sounds equal, clear to auscultation bilaterally. No wheezes, and no crackles HEART: Regular rate and rhythm, normal S1 and S2, no murmurs, rubs or gallops ABDOMEN: Soft, nontender, normoactive bowel sounds. No guarding, no rebound. No masses EXTREMITIES: Normal range of motion, no edema. No clubbing or cyanosis. No cords, erythema, or tenderness NEUROLOGICAL: Cranial nerves II through XII grossly intact. Moving all extremities. Slurred speech. Gait not tested due to intoxication. SKIN: Warm, Dry, normal turgor, no rashes or lesions noted. Medical Decision Making - Medical Decision Making 08/10/17 07:06 Pt walked out prior to discharge. Stable gait. *DC/Admit/Observation/Transfer Diagnosis at time of Disposition: Intoxication - Discharge Dispostion Disposition: ELP Condition at time of disposition: Stable Admit: No - Referrals Referrals: ON STAFF,NOT [Primary Care Provider] - - Patient Instructions Printed Discharge Instructions: DI for Alcohol Abuse - Post Discharge Activity
== END | disposition left against medical advice (07) ==
LOC: SUPCPDRO 21:55 → JER 21:55
DX: F10.220 Alcohol dependence with intoxication, uncomplicated (principal); I10 Essential (primary) hypertension; C45.9 Mesothelioma, unspecified; Z59.0 Homelessness
CPT/HCPCS: 99282-25

== ENCOUNTER 2017-08-10 16:27 | Emergency (ER) | payer OTHER ==
--- NOTE | 2017-08-10 16:39 | PDOC ---
History of Present Illness <Nuris Smith - Last Filed: 08/10/17 17:03> - History of Present Illness Initial Comments: 08/10/17 17:20 The patient is a 62 year old male with a significant PMH of alcoholism, hypertension, and mesothelioma who presents to the emergency department with alcohol intoxication and his chronic low back pain. The patient denies chest pain, shortness of breath, headache and dizziness. Denies fever, chills, nausea , vomit, diarrhea and constipation. Denies dysuria, frequency, urgency and hematuria. The patient denies any recent trauma or loss of consciousness. Allergies: Fish containing products. Past surgical history: None reported. Social history: EtOH abuse. No reported drug or cigarette use. <Otilia Bennett - Last Filed: 08/10/17 17:25> - General Chief Complaint: Alcohol intoxication Stated Complaint: INTOX Time Seen by Provider: 08/10/17 16:39 Past History - Past Medical History Anemia: No Asthma: No Cancer: Yes (mesothelioma) Cardiac Disorders: No CVA: No COPD: No CHF: No DVT: No Dementia: No Diabetes: No GI Disorders: No Disorders: No HTN: Yes Hypercholesterolemia: No Kidney Stones: No Liver Disease: No Psychiatric Problems: Yes (alcoholism) Seizures: No Thyroid Disease: No - Surgical History Abdominal Surgery: No Appendectomy: No Cardiac Surgery: No Cholecystectomy: No Lung Surgery: No Neurologic Surgery: No Orthopedic Surgery: No - Family Disease History Family Disease History: CA: Mother - Reproductive History Testicular Surgery: No - Immunization History TDAP Vaccination: Yes Immunization Up to Date: Yes - Suicide/Smoking/Psychosocial Hx Smoking Status: No Smoking History: Never smoked Have you smoked in the past 12 months: No Number of Cigarettes Smoked Daily: 0 Cigars Per Day: 0 'Breaking Loose' booklet given: 11/02/16 Hx Alcohol Use: Yes Drug/Substance Use Hx: No Substance Use Type: Alcohol Hx Substance Use Treatment: Yes <Nuris Smith - Last Filed: 08/10/17 17:03> <Otilia Bennett - Last Filed: 08/10/17 17:25> - Past Medical History Allergies/Adverse Reactions: Allergies Allergy/AdvReac Type Severity Reaction Status Date / Time Fish Containing Products Allergy Mild Verified 08/10/17 16:43 No Known Drug Allergies Allergy Verified 08/10/17 16:43 Home Medications: Ambulatory Orders NK [No Known Home Medication] 07/27/17 Review of Systems - Review of Systems Able to Perform ROS?: Yes Comments:: 08/10/17 17:22 GENERAL/CONSTITUTIONAL: (+) Alcohol intoxication. No fever or chills. No weakness. HEAD, EYES, EARS, NOSE AND THROAT: No change in vision. No ear pain or discharge. No sore throat. CARDIOVASCULAR: No chest pain or shortness of breath. RESPIRATORY: No cough, wheezing, or hemoptysis. GASTROINTESTINAL: No nausea, vomiting, diarrhea or constipation. GENITOURINARY: No dysuria, frequency, or change in urination. MUSCULOSKELETAL: (+) Chronic back pain. No joint or muscle swelling or pain. No neck pain. SKIN: No rash NEUROLOGIC: No headache, vertigo, loss of consciousness, or change in strength/ sensation. ENDOCRINE: No increased thirst. No abnormal weight change. HEMATOLOGIC/LYMPHATIC: No anemia, easy bleeding, or history of blood clots. ALLERGIC/IMMUNOLOGIC: No hives or skin allergy. <Otilia Bennett - Last Filed: 08/10/17 17:25> *Physical Exam - Vital Signs Last Vital Signs Temp Pulse Resp BP Pulse Ox 97.9 F 84 18 97/61 95 08/10/17 16:44 08/10/17 16:44 08/10/17 16:44 08/10/17 16:44 08/10/17 16:44 - Physical Exam Comments: 08/10/17 17:23 GENERAL: (+) Intoxicated. (+) Lethargic but easily arousable to loud noise. Awake, alert, and oriented, in no acute distress HEAD: No signs of trauma EYES: PERRLA, EOMI, sclera anicteric, conjunctiva clear ENT: Auricles normal inspection, hearing grossly normal, nares patent, oropharynx clear without exudates. Moist mucosa NECK: Normal ROM, supple, no lymphadenopathy, JVD, or masses LUNGS: Breath sounds equal, clear to auscultation bilaterally. No wheezes, and no crackles HEART: Regular rate and rhythm, normal S1 and S2, no murmurs, rubs or gallops ABDOMEN: Soft, nontender, normoactive bowel sounds. No guarding, no rebound. No masses EXTREMITIES: Normal range of motion, no edema. No clubbing or cyanosis. No cords, erythema, or tenderness NEUROLOGICAL: Cranial nerves II through XII grossly intact. Normal speech, normal gait SKIN: Warm, Dry, normal turgor, no rashes or lesions noted. <Otilia Bennett - Last Filed: 08/10/17 17:25> Medical Decision Making - Medical Decision Making 08/10/17 17:03 Pt presents to the ED intoxicated without signs or history of trauma. Complaining only of his chronic back pain. Many visits to the ED for similar complaints. Will hold for sobriety and reassess when sober. <Nuris Smith - Last Filed: 08/10/17 17:03> *DC/Admit/Observation/Transfer - Attestations Scribe Attestion: 08/10/17 17:25 Documentation prepared by Otilia Bennett, acting as medical reception specialist for Nuris Smith MD. <Otilia Bennett - Last Filed: 08/10/17 17:25>
[2017-08-10 16:46] VITALS: BP 97/61; PULSE 84; TEMP 97.9; BMI 34.4
[2017-08-11] MEDS ORDERED: chlordiazePOXIDE HCL 25 MG CAPSULE PO ONE (06:18)
--- NOTE | 2017-08-11 06:24 | PDOC ---
*Physical Exam - Vital Signs Last Vital Signs Temp Pulse Resp BP Pulse Ox 97.9 F 84 18 97/61 95 08/10/17 16:44 08/10/17 16:44 08/10/17 16:44 08/10/17 16:44 08/10/17 16:44 - Physical Exam Neurologic: positive: Normal Mood/Affect, Motor Strength 5/5, Other (gait ambulating with steady gait) Medical Decision Making - Medical Decision Making 08/11/17 06:23 Patient well known to ED staff presented to the emergency department less than intoxicated over the course of the evening sleeping comfortably Reevaluation 12 a.m. sleeping comfortably states he is not ready to leave Reevaluation 6 AM patient asking for something to eat and drink as well as some Librium. Discussed with patient proceeding to detox this morning patient not interested at this time Patient has information regarding our detox facility Findings, the need for follow-up, strict return instructions discussed with patient. *DC/Admit/Observation/Transfer Diagnosis at time of Disposition: Intoxication - Discharge Dispostion Admit: No - Referrals - Patient Instructions Printed Discharge Instructions: DI for Alcohol Abuse Additional Instructions: Follow-up with [facility] detox if you're interested. Return to ED for any concerns. - Post Discharge Activity
== END 2017-08-11 06:34 | disposition home or self-care (01) ==
LOC: JER 16:27
DX: F10.220 Alcohol dependence with intoxication, uncomplicated (principal); I10 Essential (primary) hypertension; C45.9 Mesothelioma, unspecified; Z59.0 Homelessness
CPT/HCPCS: 99282-25

== ENCOUNTER 2017-08-12 20:36 | Emergency (ER) | payer OTHER ==
[2017-08-12 20:48] VITALS: BMI 31.5
--- NOTE | 2017-08-12 20:49 | PDOC ---
Rapid Medical Evaluation Chief Complaint: Back Pain Time Seen by Provider: 08/12/17 20:44 Medical Evaluation: Allergies Allergy/AdvReac Type Severity Reaction Status Date / Time Fish Containing Products Allergy Mild Verified 08/10/17 16:43 No Known Drug Allergies Allergy Verified 08/10/17 16:43 08/12/17 20:44 I have performed a brief in-person evaluation of this patient. The patient presents with a chief complaint of: back pain, last drink this morning, pint of vodka Pertinent physical exam findings: well appearing I have ordered the following: nothing The patient will proceed to the ED for further evaluation. Discharge Disposition - Diagnosis Back pain - Referrals - Patient Instructions - Post Discharge Activity
[2017-08-13 04:57] VITALS: BP 120/78; PULSE 96; TEMP 97.9
[2017-08-13] MEDS ORDERED: chlordiazePOXIDE HCL 25 MG CAPSULE PO ONE (05:27)
[2017-08-13] MEDS ORDERED: IBUPROFEN 400 MG TABLET (FP) PO ONE (05:27)
--- NOTE | 2017-08-13 06:18 | PDOC ---
History of Present Illness - General Chief Complaint: Back Pain Stated Complaint: BACK PAIN Time Seen by Provider: 08/12/17 20:44 History Source: Patient - History of Present Illness Initial Comments: 08/13/17 06:13 62 year old undomiciled male with chronic back pain c/o lower back pain. patient with frequent visits to this ER for alcohol abuse patient reports drinking 1 pint of vodka yesterday. " I am trying to cut down. " no head injury / trauma noted. denies NVD, abdominal pain Past History - Past Medical History Allergies/Adverse Reactions: Allergies Allergy/AdvReac Type Severity Reaction Status Date / Time Fish Containing Products Allergy Mild Verified 08/10/17 16:43 No Known Drug Allergies Allergy Verified 08/10/17 16:43 Home Medications: Ambulatory Orders NK [No Known Home Medication] 07/27/17 Anemia: No Asthma: No Cancer: Yes (mesothelioma) Cardiac Disorders: No CVA: No COPD: No CHF: No DVT: No Dementia: No Diabetes: No GI Disorders: No Disorders: No HTN: Yes Hypercholesterolemia: No Kidney Stones: No Liver Disease: No Psychiatric Problems: Yes (alcoholism) Seizures: No Thyroid Disease: No - Surgical History Abdominal Surgery: No Appendectomy: No Cardiac Surgery: No Cholecystectomy: No Lung Surgery: No Neurologic Surgery: No Orthopedic Surgery: No - Family Disease History Family Disease History: CA: Mother - Reproductive History Testicular Surgery: No - Immunization History TDAP Vaccination: Yes Immunization Up to Date: Yes - Suicide/Smoking/Psychosocial Hx Smoking Status: No Smoking History: Never smoked Have you smoked in the past 12 months: No Number of Cigarettes Smoked Daily: 0 If you are a former smoker, when did you quit?: 0 Cigars Per Day: 0 Information on smoking cessation initiated: No 'Breaking Loose' booklet given: 11/02/16 Hx Alcohol Use: Yes Drug/Substance Use Hx: No Substance Use Type: Alcohol Hx Substance Use Treatment: Yes Review of Systems - Review of Systems Able to Perform ROS?: Yes Is the patient limited Ivorian proficient: No ABD/GI: No: Symptoms Reported, See HPI, Abdominal Distended, Abd. Pain w/ defecation, Blood Streaked Bowels, Constipated, Diarrhea, Difficulty Swallowing , Nausea, Poor Appetite, Poor Fluid Intake, Rectal Bleeding, Vomiting, Indigestion, Abdominal cramping, Tarry Stools, Other Musculoskeletal: Yes: Back Pain. No: Symptoms Reported, See HPI, Gout, Joint Pain, Joint Swelling, Muscle Pain, Muscle Weakness, Neck Pain, Joint Stiffness, Other Neurological: No: Symptoms reported, See HPI, Headache, Numbness, Paresthesia, Pre-Existing Deficit, Seizure, Tingling, Tremors, Weakness, Unsteady Gait, Ataxia, Dizziness, Other *Physical Exam - Vital Signs Last Vital Signs Temp Pulse Resp BP Pulse Ox 97.9 F 96 H 20 120/78 97 08/13/17 04:56 08/13/17 04:56 08/13/17 04:56 08/13/17 04:56 08/13/17 04:56 - Physical Exam General Appearance: Yes: Appropriately Dressed, Disheveled, Other (clear speech) HEENT: positive: Normal ENT Inspection, Other (normocephalic) Respiratory/Chest: positive: Lungs Clear, Normal Breath Sounds Cardiovascular: positive: Regular Rhythm, Regular Rate Gastrointestinal/Abdominal: positive: Normal Bowel Sounds, Soft Musculoskeletal: positive: Other (no flank pain, ). negative: Vertebral Tenderness Extremity: positive: Normal Capillary Refill, Normal Inspection, Normal Range of Motion Integumentary: positive: Normal Color, Dry, Warm Neurologic: positive: Fully Oriented, Alert, Normal Mood/Affect ED Treatment Course - Medications Given in the ED: ED Medications Discontinued Medications Generic Name Dose Route Start Last Admin Trade Name Freq PRN Reason Stop Dose Admin Chlordiazepoxide HCl 25 mg 08/13/17 05:27 08/13/17 05:39 Librium - PO 08/13/17 05:28 25 mg ONCE ONE Administration Ibuprofen 400 mg 08/13/17 05:27 08/13/17 05:39 Motrin - PO 08/13/17 05:28 400 mg ONCE ONE Administration Medical Decision Making - Medical Decision Making 08/13/17 06:17 A: patient is requesting tylenol and librium. patient alert awake . no slurred speech. requesting a bed to sleep in. will d/c home *DC/Admit/Observation/Transfer Diagnosis at time of Disposition: Alcohol abuse Back pain Qualifiers: Back pain location: low back pain Chronicity: chronic Back pain laterality: unspecified Sciatica presence: without sciatica Qualified Code(s): M54.5 - Low back pain; G89.29 - Other chronic pain; G89.29 - Other chronic pain - Discharge Dispostion Disposition: HOME - Referrals - Patient Instructions Printed Discharge Instructions: DI for Alcohol Abuse Additional Instructions: take ibuoprofen every 6-8 hours as needed for pain. follow up with your doctor. avoid using alcohol - Post Discharge Activity
== END 2017-08-13 06:53 | disposition home or self-care (01) ==
LOC: JER 20:36
DX: M54.5 Low back pain (principal); G89.29 Other chronic pain; F10.10 Alcohol abuse, uncomplicated; I10 Essential (primary) hypertension; C45.9 Mesothelioma, unspecified; Z59.0 Homelessness
CPT/HCPCS: 99282-25

== ENCOUNTER 2017-08-13 18:50 | Emergency (ER) | payer OTHER ==
[2017-08-13 19:07] VITALS: BMI 33.0
--- NOTE | 2017-08-13 19:23 | PDOC ---
History of Present Illness - General Chief Complaint: Alcohol intoxication Stated Complaint: LOWER BACK PAIN History Source: Patient, EMS Exam Limitations: No Limitations - History of Present Illness Initial Comments: 08/13/17 19:22 Patient is a 62 year old undomiciled male well known to this hospital, history of alcohol abuse, mesothelioma, DVT, fracture clavicle BIBA for intoxication. Patient has no specific complaints. PMHX: as above ALL: NKDA GENERAL/CONSTITUTIONAL: [No fever or chills. No weakness. No weight change.] HEAD, EYES, EARS, NOSE AND THROAT: [No change in vision. No ear pain or discharge. No sore throat.] CARDIOVASCULAR: [No chest pain or shortness of breath.] RESPIRATORY: [No cough, wheezing, or hemoptysis.] GASTROINTESTINAL: [No nausea, vomiting, diarrhea or constipation. No rectal bleeding.] GENITOURINARY: [No dysuria, frequency, or change in urination.] MUSCULOSKELETAL: [No joint or muscle swelling or pain. No neck or back pain.] SKIN AND BREASTS: [No rash or easy bruising.] NEUROLOGIC: [No headache, vertigo, loss of consciousness, or loss of sensation.] PSYCHIATRIC: [No depression or anxiety.] ENDOCRINE: [No increased thirst. No abnormal weight change.] HEMATOLOGIC/LYMPHATIC: [No anemia, easy bleeding, or history of blood clots.] ALLERGIC/IMMUNOLOGIC: [No hives or skin allergy. No latex allergy.] GENERAL: [The patient is somnolent but arousable, in no acute distress, unkempt. ] HEAD: [Normal with no signs of trauma.] EYES: [Pupils equal, round and reactive to light, extraocular movements intact, sclera anicteric, conjunctiva clear.] ENT: [Ears normal, nares patent, oropharynx clear without exudates. Moist mucous membranes.] NECK: [Normal range of motion, supple without lymphadenopathy, JVD, or masses.] LUNGS: [Breath sounds equal, clear to auscultation bilaterally. No wheezes, and no crackles.] HEART: [Regular rate and rhythm, normal S1 and S2 without murmur, rub.] ABDOMEN: [Soft, nontender, normoactive bowel sounds. No guarding, no rebound. No masses.] EXTREMITIES: [Normal range of motion, no edema. No clubbing or cyanosis. No cords, erythema, or tenderness.] NEUROLOGICAL: [Somnolent but arousable, slurred speech, and gait not tested due to intoxication.] PSYCH: [Normal mood, normal affect.] SKIN: [Warm, Dry, normal turgor, no rashes or lesions noted.] Past History - Past Medical History Allergies/Adverse Reactions: Allergies Allergy/AdvReac Type Severity Reaction Status Date / Time Fish Containing Products Allergy Mild Verified 08/10/17 16:43 No Known Drug Allergies Allergy Verified 08/10/17 16:43 Home Medications: Ambulatory Orders NK [No Known Home Medication] 07/27/17 Anemia: No Asthma: No Cancer: Yes (mesothelioma) Cardiac Disorders: No CVA: No COPD: No CHF: No DVT: No Dementia: No Diabetes: No GI Disorders: No Disorders: No HTN: Yes Hypercholesterolemia: No Kidney Stones: No Liver Disease: No Psychiatric Problems: Yes (alcoholism) Seizures: No Thyroid Disease: No - Surgical History Abdominal Surgery: No Appendectomy: No Cardiac Surgery: No Cholecystectomy: No Lung Surgery: No Neurologic Surgery: No Orthopedic Surgery: No - Family Disease History Family Disease History: CA: Mother - Reproductive History Testicular Surgery: No - Immunization History TDAP Vaccination: Yes Immunization Up to Date: Yes - Suicide/Smoking/Psychosocial Hx Smoking Status: No Smoking History: Never smoked Have you smoked in the past 12 months: No Number of Cigarettes Smoked Daily: 0 If you are a former smoker, when did you quit?: 0 Cigars Per Day: 0 Information on smoking cessation initiated: No 'Breaking Loose' booklet given: 11/02/16 Hx Alcohol Use: Yes Drug/Substance Use Hx: No Substance Use Type: Alcohol Hx Substance Use Treatment: Yes *Physical Exam - Vital Signs Last Vital Signs Temp Pulse Resp BP Pulse Ox 98.2 F 90 20 103/63 94 L 08/13/17 18:59 08/13/17 18:59 08/13/17 18:59 08/13/17 18:59 08/13/17 18:59 Medical Decision Making - Medical Decision Making 08/13/17 19:23 Patient is a 62 year old undomiciled male well known to this hospital, history of alcohol abuse, mesothelioma, DVT, fracture clavicle BIBA for intoxication. Finger stick Patient can be discharged when sober. 03/02/18 06:14 I discussed the physical exam findings, ancillary test results and final diagnoses with the patient. I answered all of the patient's questions. The patient was satisfied with the care received and felt comfortable with the discharge plan and treatment plan. The Patient agrees to follow up with the primary care physician within 24-72 hours. *DC/Admit/Observation/Transfer Diagnosis at time of Disposition: Alcohol dependence with uncomplicated intoxication - Discharge Dispostion Disposition: HOME Condition at time of disposition: Stable - Referrals - Patient Instructions Additional Instructions: Your Discharge Instructions: You must call primary care physician within 24 hours to arrange follow-up. Return to the Emergency Department with any new, persistent or worsening symptoms, for fever, chills, SOB, dizziness or any other concerning changes that may occur. You must follow-up with detox - Post Discharge Activity
[2017-08-14 06:38] VITALS: BP 124/85; PULSE 80; TEMP 98
== END 2017-08-14 06:38 | disposition home or self-care (01) ==
LOC: JER 18:50
DX: F10.220 Alcohol dependence with intoxication, uncomplicated (principal); I10 Essential (primary) hypertension; C45.9 Mesothelioma, unspecified; Z59.0 Homelessness
CPT/HCPCS: 82962; 99283-25

== ENCOUNTER 2017-08-15 11:19 | Emergency (ER) | payer OTHER ==
[2017-08-15 11:32] VITALS: BP 115/74; PULSE 94; TEMP 98; BMI 26.5
--- NOTE | 2017-08-15 11:54 | PDOC ---
History of Present Illness - General Chief Complaint: Alcohol intoxication Stated Complaint: ALCOHOL INTOX Time Seen by Provider: 08/15/17 11:52 History Source: Patient, EMS Exam Limitations: Intoxication - History of Present Illness Initial Comments: 62 yo M well known to this ED presents with alcohol intoxication. As per EMS patient had a witnessed fall. Patient offers no complaints of pain. Past History - Past Medical History Allergies/Adverse Reactions: Allergies Allergy/AdvReac Type Severity Reaction Status Date / Time Fish Containing Products Allergy Mild Verified 08/15/17 11:28 No Known Drug Allergies Allergy Verified 08/15/17 11:28 Home Medications: Ambulatory Orders NK [No Known Home Medication] 07/27/17 Anemia: No Asthma: No Cancer: Yes (mesothelioma) Cardiac Disorders: No CVA: No COPD: No CHF: No DVT: No Dementia: No Diabetes: No GI Disorders: No Disorders: No HTN: Yes Hypercholesterolemia: No Kidney Stones: No Liver Disease: No Psychiatric Problems: Yes (alcoholism) Seizures: No Thyroid Disease: No - Surgical History Abdominal Surgery: No Appendectomy: No Cardiac Surgery: No Cholecystectomy: No Lung Surgery: No Neurologic Surgery: No Orthopedic Surgery: No - Family Disease History Family Disease History: CA: Mother - Reproductive History Testicular Surgery: No - Immunization History TDAP Vaccination: Yes Immunization Up to Date: Yes - Suicide/Smoking/Psychosocial Hx Smoking Status: No Smoking History: Never smoked Have you smoked in the past 12 months: No Number of Cigarettes Smoked Daily: 0 If you are a former smoker, when did you quit?: 0 Cigars Per Day: 0 Information on smoking cessation initiated: No 'Breaking Loose' booklet given: 11/02/16 Hx Alcohol Use: No Drug/Substance Use Hx: No Substance Use Type: Alcohol Hx Substance Use Treatment: Yes Review of Systems - Review of Systems Able to Perform ROS?: No (intox) *Physical Exam - Vital Signs Last Vital Signs Temp Pulse Resp BP Pulse Ox 98.0 F 94 H 18 115/74 95 08/15/17 11:20 08/15/17 11:20 08/15/17 11:20 08/15/17 11:20 08/15/17 11:20 - Physical Exam Comments: GENERAL: Awake, alert, and fully oriented. +Slurred speech. HEAD: No signs of trauma EYES: PERRLA, EOMI, sclera anicteric, conjunctiva clear ENT: Auricles normal inspection, hearing grossly normal, nares patent, oropharynx clear without exudates. Moist mucosa NECK: Normal ROM, supple, no lymphadenopathy, JVD, or masses LUNGS: Breath sounds equal, clear to auscultation bilaterally. No wheezes, and no crackles HEART: Regular rate and rhythm, normal S1 and S2, no murmurs, rubs or gallops ABDOMEN: Soft, nontender, normoactive bowel sounds. No guarding, no rebound. No masses EXTREMITIES: Normal range of motion, no edema. No clubbing or cyanosis. No cords, erythema, or tenderness NEUROLOGICAL: Cranial nerves II through XII grossly intact. Normal speech. Motor and sensation intact. SKIN: Warm, Dry, normal turgor, no rashes. +Abrasion to R falk. Medical Decision Making - Medical Decision Making 08/15/17 13:26 Pt presented, complaining that he did not want to sit in a chair. Ambulated to exit. *DC/Admit/Observation/Transfer Diagnosis at time of Disposition: Intoxication - Discharge Dispostion Disposition: ELOPED Condition at time of disposition: Stable Admit: No - Referrals - Patient Instructions - Post Discharge Activity
== END 2017-08-15 12:45 | disposition left against medical advice (07) ==
LOC: JER 11:19
DX: F10.120 Alcohol abuse with intoxication, uncomplicated (principal)
CPT/HCPCS: 99282-25

== ENCOUNTER 2017-08-20 13:50 | Emergency (ER) | payer OTHER ==
--- NOTE | 2017-08-20 14:10 | PDOC ---
History of Present Illness - General History Source: Patient Exam Limitations: Intoxication - History of Present Illness Initial Comments: 08/20/17 14:14 The patient is a 62 year old male who is well known to the ED with a significant PMH of chronic alcoholism and mesothelioma who presents to the emergency department with alcohol intoxication. He denies any other complaints. History is limited secondary to the patients intoxication. Allergies: NKDA Past surgical history: None reported, Social history: Alcohol abuse. PCP: Dr. Garima Bridges <Nitish Bonilla - Last Filed: 08/20/17 14:19> <Fernie Rosenthal - Last Filed: 08/20/17 14:37> - General Chief Complaint: Alcohol intoxication Stated Complaint: Alcohol intoxication Time Seen by Provider: 08/20/17 14:02 Past History <Nitish Bonilla - Last Filed: 08/20/17 14:19> - Past Medical History Anemia: No Asthma: No Cancer: Yes (mesothelioma) Cardiac Disorders: No CVA: No COPD: No CHF: No DVT: No Dementia: No Diabetes: No GI Disorders: No Disorders: No HTN: Yes Hypercholesterolemia: No Kidney Stones: No Liver Disease: No Psychiatric Problems: Yes (alcoholism) Seizures: No Thyroid Disease: No - Surgical History Abdominal Surgery: No Appendectomy: No Cardiac Surgery: No Cholecystectomy: No Lung Surgery: No Neurologic Surgery: No Orthopedic Surgery: No - Family Disease History Family Disease History: CA: Mother - Reproductive History Testicular Surgery: No - Immunization History TDAP Vaccination: Yes Immunization Up to Date: Yes - Suicide/Smoking/Psychosocial Hx Smoking Status: No Smoking History: Never smoked Have you smoked in the past 12 months: No Number of Cigarettes Smoked Daily: 0 If you are a former smoker, when did you quit?: 0 Cigars Per Day: 0 'Breaking Loose' booklet given: 11/02/16 Hx Alcohol Use: No Drug/Substance Use Hx: No Substance Use Type: Alcohol Hx Substance Use Treatment: Yes <Fernie Rosenthal - Last Filed: 08/20/17 14:37> - Past Medical History Allergies/Adverse Reactions: Allergies Allergy/AdvReac Type Severity Reaction Status Date / Time Fish Containing Products Allergy Mild Verified 08/20/17 14:11 No Known Drug Allergies Allergy Verified 08/20/17 14:11 Home Medications: Ambulatory Orders NK [No Known Home Medication] 07/27/17 Review of Systems - Review of Systems Able to Perform ROS?: Yes <Nitish Bonilla - Last Filed: 08/20/17 14:19> *Physical Exam - Vital Signs Last Vital Signs Temp Pulse Resp BP Pulse Ox 97 F L 93 H 18 118/65 95 08/20/17 13:50 08/20/17 13:50 08/20/17 13:50 08/20/17 13:50 08/20/17 13:50 - Physical Exam Comments: 08/20/17 14:19 GENERAL: (+) Intoxicated. Awake, alert, in no acute distress HEAD: No signs of trauma EYES: PERRLA, EOMI, sclera anicteric, conjunctiva clear ENT: Auricles normal inspection, hearing grossly normal, nares patent, oropharynx clear without exudates. Moist mucosa NECK: Normal ROM, supple, no lymphadenopathy, JVD, or masses LUNGS: Breath sounds equal, clear to auscultation bilaterally. No wheezes, and no crackles HEART: Regular rate and rhythm, normal S1 and S2, no murmurs, rubs or gallops ABDOMEN: Soft, nontender, normoactive bowel sounds. No guarding, no rebound. No masses EXTREMITIES: Normal range of motion, no edema. No clubbing or cyanosis. No cords , erythema, or tenderness BACK: No midline spinal tenderness in cervical/thoracic/lumbar region NEUROLOGICAL: Normal speech, cranial nerves intact, negative pronator drift, 5/ 5 strength in all 4 extremities, normal sensation to light touch in all 4 extremities, normal cerebellar exam, normal reflexes and tone SKIN: Warm, Dry, normal turgor, no rashes or lesions noted. <Nitish Bonilla - Last Filed: 08/20/17 14:19> Medical Decision Making - Medical Decision Making 08/20/17 14:31 62-year-old male well-known to this emergency department presents with alcohol intoxication. Patient has no other complaints. Vitals unremarkable. Exam unremarkable, no current evidence of trauma. Will observe patient and reassess for clinical sobriety. <Fernie Rosenthal - Last Filed: 08/20/17 14:37> *DC/Admit/Observation/Transfer - Attestations Scribe Attestion: 08/20/17 14:20 Documentation prepared by Nitish Bonilla, acting as manager of medical for Fernie Rosenthal MD. <Nitish Bonilla - Last Filed: 08/20/17 14:19> <Fernie Rosenthal - Last Filed: 08/20/17 14:37> - Referrals Referrals: Garima Bridges MD [Primary Care Provider] -
[2017-08-20 14:12] VITALS: BP 118/65; PULSE 93; TEMP 97; BMI 26.5
== END 2017-08-20 14:59 | disposition home or self-care (01) ==
LOC: JER 13:50
DX: F10.120 Alcohol abuse with intoxication, uncomplicated (principal); C45.9 Mesothelioma, unspecified
CPT/HCPCS: 99281-25

== ENCOUNTER 2017-08-21 11:49 | Emergency (ER) | payer OTHER ==
[2017-08-21 12:18] VITALS: BP 129/79; PULSE 79; TEMP 98; BMI 31.5
--- NOTE | 2017-08-21 12:30 | PDOC ---
*Physical Exam - Vital Signs Last Vital Signs Temp Pulse Resp BP Pulse Ox 98.0 F 79 18 129/79 95 08/21/17 12:16 08/21/17 12:16 08/21/17 12:16 08/21/17 12:16 08/21/17 12:16 Medical Decision Making - Medical Decision Making 08/21/17 12:30 Pt seen by the Advanced Practice Provider under my direct supervision Ancillary studies reviewed I agree with plan as outlined by the Advanced Practice Provider APPLE Young *DC/Admit/Observation/Transfer Diagnosis at time of Disposition: Intoxication, Alcohol dependence with uncomplicated intoxication - Discharge Dispostion Disposition: HOME Condition at time of disposition: Improved - Referrals - Patient Instructions Printed Discharge Instructions: DI for Alcohol Abuse Additional Instructions: Return to the ER with any worsening or concerning symptoms - Post Discharge Activity
--- NOTE | 2017-08-21 13:10 | PDOC ---
History of Present Illness - General Chief Complaint: Alcohol intoxication Stated Complaint: INTOX Time Seen by Provider: 08/21/17 12:27 History Source: Patient Exam Limitations: Intoxication - History of Present Illness Initial Comments: CHIEF COMPLAINT: 62 y/o afebrile male well known to this ER for ETOH intoxication BIB EMS for intoxication. HISTORY OF PRESENT ILLNESS: The patient denies all complaints. History is limited to intoxication. Allergies: NKDA Past surgical history: None reported, Social history: Alcohol abuse. PCP: Dr. Garima Bridges Vital signs on arrival are within normal limits. REVIEW OF SYSTEMS: Limited secondary to intoxication. GENERAL/CONSTITUTIONAL: No fever. HEAD, EYES, EARS, NOSE AND THROAT: No ear pain or discharge. No sore throat. CARDIOVASCULAR: No chest pain or shortness of breath. RESPIRATORY: No cough, wheezing, or hemoptysis. GASTROINTESTINAL: No nausea, vomiting, diarrhea. MUSCULOSKELETAL: No joint or muscle swelling or pain. No neck or back pain. PHYSICAL EXAM: GENERAL: The patient is awake, alert, and fully oriented, in no acute distress. HEAD: Normal with no signs of trauma. ENT: Pupils equal, round and reactive to light, extraocular movements intact, sclera anicteric, conjunctiva clear. Neck supple. LUNGS: Clear to auscultation bilaterally. Normal excursion. No respiratory distress or use of accessory muscles. CV: RRR, S1/S2, no MRG. Cap refill < 2 sec. ABDOMEN: Soft, obese, no TTP. EXTREMITIES: Normal range of motion, no edema. NEUROLOGICAL: Slurred speech. Abnormal gait. SKIN: Warm, dry, normal turgor, no rashes or lesions noted. Past History - Past Medical History Allergies/Adverse Reactions: Allergies Allergy/AdvReac Type Severity Reaction Status Date / Time Fish Containing Products Allergy Mild Verified 08/21/17 12:16 No Known Drug Allergies Allergy Verified 08/21/17 12:16 Home Medications: Ambulatory Orders NK [No Known Home Medication] 07/27/17 Anemia: No Asthma: No Cancer: Yes (mesothelioma) Cardiac Disorders: No CVA: No COPD: No CHF: No DVT: No Dementia: No Diabetes: No GI Disorders: No Disorders: No HTN: Yes Hypercholesterolemia: No Kidney Stones: No Liver Disease: No Psychiatric Problems: Yes (alcoholism) Seizures: No Thyroid Disease: No - Surgical History Abdominal Surgery: No Appendectomy: No Cardiac Surgery: No Cholecystectomy: No Lung Surgery: No Neurologic Surgery: No Orthopedic Surgery: No - Family Disease History Family Disease History: CA: Mother - Reproductive History Testicular Surgery: No - Immunization History TDAP Vaccination: Yes Immunization Up to Date: Yes - Suicide/Smoking/Psychosocial Hx Smoking Status: No Smoking History: Never smoked Have you smoked in the past 12 months: No Number of Cigarettes Smoked Daily: 0 If you are a former smoker, when did you quit?: 0 Cigars Per Day: 0 Information on smoking cessation initiated: No 'Breaking Loose' booklet given: 11/02/16 Hx Alcohol Use: No Drug/Substance Use Hx: No Substance Use Type: Alcohol Hx Substance Use Treatment: Yes *Physical Exam - Vital Signs Last Vital Signs Temp Pulse Resp BP Pulse Ox 98.0 F 79 18 129/79 95 08/21/17 12:16 08/21/17 12:16 08/21/17 12:16 08/21/17 12:16 08/21/17 12:16 Medical Decision Making - Medical Decision Making A/p: 62 y/o male here for alcohol intoxication. Patient will sleep in the ER until well enough to be discharged. The patient is awake, walking around the ER and eating M&Ms. He wants to go home. Will discharge to home. Patient instructed to not drink alcohol and to return to the ER with any worsening or concerning symptoms. The patient verbalizes understanding of all instructions, has no further questions and is awaiting discharge. *DC/Admit/Observation/Transfer Diagnosis at time of Disposition: Intoxication, Alcohol dependence with uncomplicated intoxication - Discharge Dispostion Disposition: HOME Condition at time of disposition: Improved - Referrals - Patient Instructions Printed Discharge Instructions: DI for Alcohol Abuse Additional Instructions: Return to the ER with any worsening or concerning symptoms - Post Discharge Activity
== END 2017-08-21 14:24 | disposition home or self-care (01) ==
LOC: JER 11:49
DX: F10.120 Alcohol abuse with intoxication, uncomplicated (principal); I10 Essential (primary) hypertension; C45.9 Mesothelioma, unspecified
CPT/HCPCS: 99281-25

== ENCOUNTER 2017-08-27 21:58 | Emergency (ER) | payer OTHER ==
[2017-08-27 22:03] VITALS: BMI 35.9
--- NOTE | 2017-08-27 22:51 | PDOC ---
History of Present Illness - General Chief Complaint: Alcohol intoxication Stated Complaint: INTOX Time Seen by Provider: 08/27/17 22:42 - History of Present Illness Initial Comments: 08/27/17 22:46 The patient is a 62 year old male with a history of alcohol abuse well known to our ED who presents via EMS for alcohol intoxication. History is limited due to intoxication. The patient reports that he has been drinking every night including tonight. No other complaints. Patient denies fevers, chills, SOB, chest pain, nausea, vomiting, abdominal pain, or changes with urination or bowel movements. Past History - Past Medical History Allergies/Adverse Reactions: Allergies Allergy/AdvReac Type Severity Reaction Status Date / Time Fish Containing Products Allergy Mild Verified 08/27/17 22:01 No Known Drug Allergies Allergy Verified 08/27/17 22:01 Home Medications: Ambulatory Orders NK [No Known Home Medication] 07/27/17 Anemia: No Asthma: No Cancer: Yes (mesothelioma) Cardiac Disorders: No CVA: No COPD: No CHF: No DVT: No Dementia: No Diabetes: No GI Disorders: No Disorders: No HTN: Yes Hypercholesterolemia: No Kidney Stones: No Liver Disease: No Psychiatric Problems: Yes (alcoholism) Seizures: No Thyroid Disease: No - Surgical History Abdominal Surgery: No Appendectomy: No Cardiac Surgery: No Cholecystectomy: No Lung Surgery: No Neurologic Surgery: No Orthopedic Surgery: No - Family Disease History Family Disease History: CA: Mother - Reproductive History Testicular Surgery: No - Immunization History TDAP Vaccination: Yes Immunization Up to Date: Yes - Suicide/Smoking/Psychosocial Hx Smoking Status: No Smoking History: Never smoked Have you smoked in the past 12 months: No Number of Cigarettes Smoked Daily: 0 If you are a former smoker, when did you quit?: 0 Cigars Per Day: 0 'Breaking Loose' booklet given: 11/02/16 Hx Alcohol Use: Yes Drug/Substance Use Hx: No Substance Use Type: Alcohol Hx Substance Use Treatment: Yes Review of Systems - Review of Systems Comments:: 08/27/17 22:49 Constitutional: Alcohol Intoxication. No fevers, chills, fatigue, malaise HEENT: No Rhinorrhea, nasal congestion, visual changes Cardiovascular: No chest pain, syncope, palpitations, lightheadedness Respiratory: No Cough, SOB, Hemoptysis, Gastrointestinal: No Abdominal pain, Nausea, Vomiting, Constipation, Diarrhea, Melena Genitourinary: No Dysuria, Frequency, Urgency, Hesitancy, Hematuria, Flank pain Musculoskeletal: No Myalgia, arthralgia Skin: No rashes, itching, bruising, pallor Neurologic: No Headache, Dizziness, Numbness, Weakness, or Tingling Psychiatric: No Hallucinations. No SI or HI *Physical Exam - Vital Signs Last Vital Signs Temp Pulse Resp BP Pulse Ox 98.0 F 106 H 14 122/71 94 L 08/27/17 22:02 08/27/17 22:02 08/27/17 22:02 08/27/17 22:02 08/27/17 22:02 - Physical Exam Comments: 08/27/17 22:51 General Appearance: Nourished. Alcohol on Breath. Intoxicated. No Apparent Distress HEENT: EOMI, DOUGLAS. No Pharyngeal Erythema, Tonsillar Exudate, Tonsillar Erythema Neck: No Cervical Lymphadenopathy Respiratory/Chest: Lungs Clear, Normal Breath Sounds. No Crackles, Rales, Rhonchi, Wheezing Cardiovascular: Regular Rhythm, Regular Rate. No Murmur, Gallops, Rubs Gastrointestinal/Abdominal: Normal Bowel Sounds, Soft. No Guarding, Rebound, Tenderness Musculoskeletal: No CVA Tenderness Extremity: Normal Capillary Refill Integumentary: Normal Color, Dry, Warm Neurologic: Fully Oriented, Alert, Normal Mood/Affect, Normal Response, Medical Decision Making - Medical Decision Making 08/27/17 22:54 The patient is a 62 year old male with a history of alcohol abuse well known to our ED who presents via EMS for alcohol intoxication. The patient is acutely intoxicated on exam. We will continue to monitor here in the ER for sobriety. We will continue to reassess as well. It is likely the patient's symptoms are due to his alcohol intoxication and is currently stable on exam. 08/28/17 07:14 The patient is ambulating without difficulty and requesting discharge. We are comfortable discharging the patient home at this time. We discussed the plan and the need for the patient to stop drinking alcohol and the patient voiced understanding. *DC/Admit/Observation/Transfer Diagnosis at time of Disposition: Intoxication - Discharge Dispostion Disposition: HOME Condition at time of disposition: Good Admit: No - Referrals Referrals: Toni Iyer MD [Staff Physician] - - Patient Instructions Printed Discharge Instructions: DI for Alcohol Abuse Additional Instructions: Please return to the ER if you experience concerning or worsening symptoms including worsening chest pain or difficulty breathing. Please refrain from drinking alcohol. Please call to schedule a follow up appointment with a primary care provider to discuss your ER visit and further management of your alcoholism. - Post Discharge Activity
--- NOTE | 2017-08-27 23:16 | PDOC ---
Attending Attestation - Resident Resident Name: Smith Dunbar - ED Attending Attestation I have performed the following: I have examined & evaluated the patient, The case was reviewed & discussed with the resident, I agree w/resident's findings & plan, Exceptions are as noted - Physicial Exam PE: 08/27/17 23:13 *Physical Exam General Appearance: Yes: unkempt Intoxicated No: Apparent Distress, HEENT: positive: EOMI, DOUGLAS, Normal ENT Inspection, Normal Voice, TMs Normal, Pharynx Normal. negative: Pale Conjunctivae, Photophobia, Scleral Icterus (R), Scleral Icterus (L) Neck: positive: Trachea midline, Normal Thyroid, Supple. negative: Tender, Rigid, Carotid bruit, Stridor, Lymphadenopathy (R), Lymphadenopathy (L), Thyromegaly Respiratory/Chest: positive: Lungs Clear, Normal Breath Sounds. negative: Chest Tender, Respiratory Distress, Accessory Muscle Use, Labored Respiration, RES, Crackles, Rales, Rhonchi, Stridor, Wheezing, Dullness Cardiovascular: positive: Tachy Rhythm, Regular Rate, S1, S2. negative: Edema , JVD, Murmur, Bradycardia, Vascular Pulses: Dorsalis-Pedis (R): 2+, Doralis-Pedis (L): 2+ Gastrointestinal/Abdominal: positive: Normal Bowel Sounds, Flat, Soft. negative : Tender, Organomegaly, Pulsatile Mass, Increased Bowel Sounds, Decreased BS, Distended, Guarding, Rebound, Hernia, Hepatomegaly, Spleenomegaly Lymphatic: negative: Adenopathy, Tenderness Musculoskeletal: positive: Normal Inspection. negative: CVA Tenderness, Decreased Range of Motion Extremity: positive: Normal Capillary Refill, Normal Inspection, Normal Range of Motion, Pelvis Stable. negative: Tender, Pedal Edema, Swelling, Erythema Integumentary: positive: Normal Color, Dry, Warm. negative: Cyanotic, Erythema , Jaundice, Rash Neurologic: positive: intoxicated 08/27/17 23:15 <Altaf Iniguez - Last Filed: 08/27/17 23:13> - HPI HPI: 08/27/17 23:16 The patient a 62-year-old afebrile male well known to this ER for ETOH intoxication BIB EMS for alcohol intoxication. History is limited due to intoxication. Allergies: NKDA Past surgical history: None reported, Social history: Alcohol abuse. PCP: Dr. Garima Bridges <Nina Rae - Last Filed: 08/27/17 23:18> Review of Systems - Review of Systems Able to Perform ROS?: No Comments:: 08/27/17 23:17 Unable to perform ROS due to intoxication. <Nina Rae - Last Filed: 08/27/17 23:18> Attestations - Attestations 08/27/17 23:18 Documentation prepared by Nina Rae, acting as medical assisting program director for Altaf Iniguez MD. <Nina Rae - Last Filed: 08/27/17 23:18>
[2017-08-28] MEDS ORDERED: ACETAMINOPHEN 325 MG TABLET (FP) PO ONE (08:26)
[2017-08-28] MEDS ORDERED: MAG HYDROX/AL HYDROX/SIMETH 30 ML UNIT-DOSE CUP PO ONE (08:26)
--- NOTE | 2017-08-28 08:27 | PDOC ---
*Physical Exam - Vital Signs Last Vital Signs Temp Pulse Resp BP Pulse Ox 97.9 F 76 96 H 139/87 94 L 08/28/17 07:15 08/28/17 07:15 08/28/17 07:15 08/28/17 07:15 08/27/17 22:02 - Physical Exam Comments: 08/28/17 08:32 GENERAL: Awake, alert, and fully oriented, in no acute distress HEAD: No signs of trauma, normocephalic, atraumatic CHEST: No signs of trauma, tender to palpation along left chest EYES: PERRLA, EOMI, sclera anicteric, conjunctiva clear ENT: Auricles normal inspection, hearing grossly normal, nares patent, oropharynx clear without exudates. Moist mucosa NECK: Normal ROM, supple, no lymphadenopathy, JVD, or masses LUNGS: No distress, speaks full sentences, clear to auscultation bilaterally HEART: Regular rate and rhythm, normal S1 and S2, no murmurs, rubs or gallops, peripheral pulses normal and equal bilaterally. ABDOMEN: Minimally tender epigastric pain, normoactive bowel sounds. No guarding, no rebound. No masses EXTREMITIES: Normal inspection, Normal range of motion, no edema. No clubbing or cyanosis. NEUROLOGICAL: Cranial nerves II through XII grossly intact. Normal speech, normal gait, no focal sensorimotor deficits SKIN: Warm, Dry, normal turgor, no rashes or lesions noted. ED Treatment Course - LABORATORY CBC & Chemistry Diagram: 08/28/17 11:02 08/28/17 11:02 Medical Decision Making - Medical Decision Making 08/28/17 08:[address] Dunbar. Patient is 62M here today for intoxication. Patient was to be discharged after shift change. However, patient is now complaining of chest pain. He describes the pain as if someone is standing on his chest. Pain is worse with palpation and exertion. It is not changed with rest. Patient endorses associated shortness of breath that is at baseline. Denies nausea, vomiting, fevers, chills. States that he has lower back pain, again at baseline. Patient is asking for water and tylenol for his pain. EKG shows sinus tachycardia with no st elevations/depressions. Rate = 102. No significant t wave abnormalities. One PVC. Normal QRS/HI/QTc intervals. Chest pain is very atypical. Will treat with tylenol and maalox and re-evaluate. 08/28/17 10:16 Patient's chest pain not relieved with tylenol, says that he's concerned about his chest pain. Give 50 of librium for withdrawal symptoms. 08/28/17 10:49 CXR shows no significant changes from prior AP. 08/28/17 13:53 CT abd/pelvis shows fatty liver, enlarged prostate, distended bladder, no acute pathology. Patient reports resolution of his chest and abdominal pain. Asking to go home. Will discharge. *DC/Admit/Observation/Transfer Diagnosis at time of Disposition: Intoxication, Chest pain - Discharge Dispostion Condition at time of disposition: Good - Referrals Referrals: Toni Iyer MD [Staff Physician] - - Patient Instructions Printed Discharge Instructions: DI for Alcohol Abuse, DI for Chest Pain Additional Instructions: Please return to the ER if you experience concerning or worsening symptoms including worsening chest pain or difficulty breathing. Please refrain from drinking alcohol. Please call to schedule a follow up appointment with a primary care provider to discuss your ER visit and further management of your alcoholism. - Post Discharge Activity
[2017-08-28] MEDS ORDERED: chlordiazePOXIDE HCL 25 MG CAPSULE PO ONE ×2 (09:11→13:40)
--- NOTE | 2017-08-28 10:30 | EKG ---
Test Reason : Blood Pressure : / mmHG Vent. Rate : 102 BPM Atrial Rate : 102 BPM P-R Int : 172 ms QRS Dur : 094 ms QT Int : 366 ms P-R-T Axes : 028 -22 041 degrees QTc Int : 477 ms SINUS TACHYCARDIA WITH PREMATURE ATRIAL COMPLEXES WITH ABERRANT CONDUCTION WHEN COMPARED WITH ECG OF 03-JUN-2017 12:44, ABERRANT CONDUCTION IS NOW PRESENT NONSPECIFIC T WAVE ABNORMALITY, IMPROVED IN LATERAL LEADS Confirmed by RUBI RICHMOND, RAY ([id number]) on 08/28/2017 10:29:59 AM Referred By: Confirmed By:RAY VENEGAS MD
[2017-08-28 11:09] LABS: BASO % 1.2 % (0-2.0); EOS % 2.7 % (0-4.5); HEMATOCRIT 30.7 % (35.4-49); LYMPH % 26.6 % (8-40); MCH 27.6 pg (25.7-33.7); MCHC 32.5 g/dl (32.0-35.9); MEAN CELL VOLUME 85.1 fl (80-96); MEAN PLT VOLUME 7.1 fl (7.5-11.1); MONO % 7.9 % (3.8-10.2); NEUT % 61.6 % (42.8-82.8); PLATELET COUNT 267 K/MM3 (134-434); RDW 19.4 % (11.9-15.9); WHITE BLOOD COUNT 4.8 K/mm3 (4.0-10.0)
[2017-08-28 11:38] LABS: ALBUMIN 2.9 g/dl (3.4-5.0); ANION GAP 7 (8-16); BILIRUBIN,TOTAL 0.4 mg/dL (0.2-1.0); BLOOD UREA NITROGEN 9 mg/dL (7-18); CALCIUM 7.8 mg/dL (8.5-10.1); CHLORIDE 108 mmol/L (98-107); CO2 32 mmol/L (21-32); CREATININE 0.5 mg/dL (0.7-1.3); GLUCOSE,RANDOM 80 mg/dL (74-106); SGPT/ALT 28 U/L (12-78); SODIUM 147 mmol/L (136-145); TOT PROT 6.4 g/dl (6.4-8.2)
[2017-08-28 11:41] LABS: ALK PHOS 116 U/L (45-117)
[2017-08-28 11:42] LABS: PROTHROMBIN TIME (PATIENT) 11.3 SEC (9.98-11.88)
[2017-08-28 11:43] LABS: MAGNESIUM 1.4 mg/dL (1.8-2.4); POTASSIUM 3.8 mmol/L (3.5-5.1); SGOT/AST 54 U/L (15-37)
[2017-08-28 12:04] VITALS: TEMP 98.7
[2017-08-28 13:02] LABS: LIPASE 95 U/L (73-393)
[2017-08-28 14:12] VITALS: BP 160/98; PULSE 69
== END 2017-08-28 14:12 | disposition home or self-care (01) ==
LOC: JER 21:58
DX: F10.120 Alcohol abuse with intoxication, uncomplicated (principal); C45.9 Mesothelioma, unspecified
CPT/HCPCS: 36415; 71045-TC-FY; 74177-TC; 80053; 82550; 82553; 83690; 83735; 84484; 85025; 85610; 93005; 93010; 99284-25

== ENCOUNTER 2017-09-02 23:21 | Emergency (ER) | payer OTHER ==
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
[2017-09-03 00:08] VITALS: BP 100/69; PULSE 91; TEMP 97.8; BMI 33.9
== END 2017-09-03 03:50 | disposition home or self-care (01) ==
LOC: JER 23:21
DX: M54.5 Low back pain (principal); F10.10 Alcohol abuse, uncomplicated
CPT/HCPCS: 99281-25

== ENCOUNTER 2017-09-03 15:28 | Emergency (ER) | payer OTHER ==
[2017-09-03 15:43] VITALS: BP 98/54; PULSE 93; TEMP 97.4; BMI 34.4
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
--- NOTE | 2017-09-03 16:28 | PDOC ---
Attending Attestation - Resident Resident Name: Ronald Rizzo - ED Attending Attestation I have performed the following: I have examined & evaluated the patient, The case was reviewed & discussed with the resident, I agree w/resident's findings & plan, Exceptions are as noted - HPI HPI: 62 yo M history EtOH well known to this ED presents with intoxication. Patient is awake, verbal, and ambulatory on arrival. - Physicial Exam PE: GENERAL: Awake, alert, and fully oriented, in no acute distress HEAD: Healing ecchymosis to L inferior orbital rim. EYES: PERRLA, EOMI, sclera anicteric, conjunctiva clear ENT: Auricles normal inspection, hearing grossly normal, nares patent, oropharynx clear without exudates. Moist mucosa NECK: Normal ROM, supple, no lymphadenopathy, JVD, or masses LUNGS: Breath sounds equal, clear to auscultation bilaterally. No wheezes, and no crackles HEART: Regular rate and rhythm, normal S1 and S2, no murmurs, rubs or gallops ABDOMEN: Soft, nontender, normoactive bowel sounds. No guarding, no rebound. No masses EXTREMITIES: Normal range of motion, no edema. No clubbing or cyanosis. No cords, erythema, or tenderness NEUROLOGICAL: Cranial nerves II through XII grossly intact. Normal speech, Stable gait SKIN: Warm, Dry, normal turgor, no rashes or lesions noted. - Medical Decision Making Pt presents with intoxication. +Stable gait on ED evaluation. Stable for DC.
== END 2017-09-03 17:07 | disposition home or self-care (01) ==
LOC: JER 15:28
DX: F10.220 Alcohol dependence with intoxication, uncomplicated (principal); I10 Essential (primary) hypertension; C45.9 Mesothelioma, unspecified; Z59.0 Homelessness
CPT/HCPCS: 99283-25

== ENCOUNTER 2017-09-05 15:46 | Emergency (ER) | payer OTHER ==
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
[2017-09-05 16:48] VITALS: BP 108/71; PULSE 99; TEMP 97.6; BMI 29.5
== END 2017-09-06 03:04 | disposition home or self-care (01) ==
LOC: JER 15:46
DX: F10.220 Alcohol dependence with intoxication, uncomplicated (principal); I10 Essential (primary) hypertension; C45.9 Mesothelioma, unspecified; Z59.0 Homelessness; Z87.828 Personal history of other (healed) physical injury and trauma
CPT/HCPCS: 99282-25

== ENCOUNTER 2017-09-11 19:23 | Emergency (ER) | payer OTHER ==
--- NOTE | 2017-09-11 19:30 | PDOC ---
Rapid Medical Evaluation Time Seen by Provider: 09/11/17 19:27 Medical Evaluation: Allergies Allergy/AdvReac Type Severity Reaction Status Date / Time Fish Containing Products Allergy Mild Verified 09/07/17 17:40 No Known Drug Allergies Allergy Verified 09/07/17 17:40 09/11/17 19:29 The patient presents with a chief complaint of: Intoxicated. Last drink this evening I have performed a brief in-person evaluation of this patient; Pertinent physical exam findings: ambulatory, in no respiratory distress I have ordered the following: Nothing The patient will proceed to the ED for further evaluation.
[2017-09-11 19:36] VITALS: BP 130/80; BMI 36.9
--- NOTE | 2017-09-11 21:50 | PDOC ---
History of Present Illness - General Chief Complaint: Alcohol intoxication Stated Complaint: INTOX Time Seen by Provider: 09/11/17 19:27 History Source: Patient Past History - Past Medical History Allergies/Adverse Reactions: Allergies Allergy/AdvReac Type Severity Reaction Status Date / Time Fish Containing Products Allergy Mild Verified 09/11/17 19:36 No Known Drug Allergies Allergy Verified 09/11/17 19:36 Home Medications: Ambulatory Orders NK [No Known Home Medication] 07/27/17 Anemia: No Asthma: No Cancer: Yes (mesothelioma) Cardiac Disorders: No CVA: No COPD: No CHF: No DVT: No Dementia: No Diabetes: No GI Disorders: No Disorders: No HTN: Yes Hypercholesterolemia: No Kidney Stones: No Liver Disease: No Psychiatric Problems: Yes (alcoholism) Seizures: No Thyroid Disease: No - Surgical History Abdominal Surgery: No Appendectomy: No Cardiac Surgery: No Cholecystectomy: No Lung Surgery: No Neurologic Surgery: No Orthopedic Surgery: No - Family Disease History Family Disease History: CA: Mother - Reproductive History Testicular Surgery: No - Immunization History TDAP Vaccination: Yes Immunization Up to Date: Yes - Suicide/Smoking/Psychosocial Hx Smoking Status: No Smoking History: Never smoked Have you smoked in the past 12 months: No Number of Cigarettes Smoked Daily: 0 If you are a former smoker, when did you quit?: 0 Cigars Per Day: 0 Information on smoking cessation initiated: No 'Breaking Loose' booklet given: 11/02/16 Hx Alcohol Use: Yes Drug/Substance Use Hx: No Substance Use Type: Alcohol Hx Substance Use Treatment: Yes *Physical Exam - Vital Signs Last Vital Signs Temp Pulse Resp BP Pulse Ox 130/80 09/11/17 19:28 *DC/Admit/Observation/Transfer Diagnosis at time of Disposition: Alcohol abuse - Discharge Dispostion Disposition: ELOPED - Referrals - Patient Instructions - Post Discharge Activity
== END 2017-09-11 21:52 | disposition left against medical advice (07) ==
LOC: JER 19:23
DX: F10.220 Alcohol dependence with intoxication, uncomplicated (principal); I10 Essential (primary) hypertension; C45.9 Mesothelioma, unspecified; Z59.0 Homelessness
CPT/HCPCS: 99281-25

== ENCOUNTER 2017-09-12 14:20 | Emergency (ER) | payer OTHER ==
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
[2017-09-12 15:34] VITALS: BP 139/80; PULSE 80; TEMP 97.5; BMI 32.9
== END 2017-09-12 20:30 | disposition home or self-care (01) ==
LOC: JER 14:20
DX: F10.220 Alcohol dependence with intoxication, uncomplicated (principal); I10 Essential (primary) hypertension; C45.9 Mesothelioma, unspecified; Z59.0 Homelessness
CPT/HCPCS: 99281-25

== ENCOUNTER 2017-09-13 14:28 | Emergency (ER) | payer OTHER ==
[2017-09-13 14:47] VITALS: BP 117/78; PULSE 88; TEMP 98; BMI 33.0
--- NOTE | 2017-09-13 15:42 | PDOC ---
History of Present Illness - General History Source: Patient Exam Limitations: Intoxication - History of Present Illness Initial Comments: 09/13/17 15:46 The patient is a 62-year-old male BIBA with a significant past medical history of ETOH abuse, mesothelioma, and hypertension, who presents to the emergency department with alcohol intoxication today. Patient is a frequent visitor and well-known to the ED. Patient was picked up on the street and reports he had a bottle of vodka today. The patient denies any acute trauma or falls. Patient denies any other complaints. <Joelle Smalls - Last Filed: 09/13/17 15:46> <Skye Rashid - Last Filed: 09/13/17 19:07> - General Chief Complaint: Alcohol intoxication Stated Complaint: ALCOHOL INTOX Time Seen by Provider: 09/13/17 15:06 Past History <Joelle Smalls - Last Filed: 09/13/17 15:46> - Past Medical History Anemia: No Asthma: No Cancer: Yes (mesothelioma) Cardiac Disorders: No CVA: No COPD: No CHF: No DVT: No Dementia: No Diabetes: No GI Disorders: No Disorders: No HTN: Yes Hypercholesterolemia: No Kidney Stones: No Liver Disease: No Psychiatric Problems: Yes (alcoholism) Seizures: No Thyroid Disease: No - Surgical History Abdominal Surgery: No Appendectomy: No Cardiac Surgery: No Cholecystectomy: No Lung Surgery: No Neurologic Surgery: No Orthopedic Surgery: No - Family Disease History Family Disease History: CA: Mother - Reproductive History Testicular Surgery: No - Immunization History TDAP Vaccination: Yes Immunization Up to Date: Yes - Suicide/Smoking/Psychosocial Hx Smoking Status: No Smoking History: Never smoked Have you smoked in the past 12 months: No Number of Cigarettes Smoked Daily: 0 If you are a former smoker, when did you quit?: 0 Cigars Per Day: 0 'Breaking Loose' booklet given: 11/02/16 Hx Alcohol Use: No Drug/Substance Use Hx: No Substance Use Type: Alcohol Hx Substance Use Treatment: Yes <Skye Rashid - Last Filed: 09/13/17 19:07> - Past Medical History Allergies/Adverse Reactions: Allergies Allergy/AdvReac Type Severity Reaction Status Date / Time Fish Containing Products Allergy Mild Verified 09/13/17 14:44 No Known Drug Allergies Allergy Verified 09/13/17 14:44 Home Medications: Ambulatory Orders NK [No Known Home Medication] 07/27/17 Review of Systems - Review of Systems Able to Perform ROS?: Yes Comments:: 09/13/17 15:46 GENERAL/CONSTITUTIONAL: No fever or chills. No weakness. HEAD, EYES, EARS, NOSE AND THROAT: No change in vision. No ear pain or discharge. No sore throat. CARDIOVASCULAR: No chest pain or shortness of breath. RESPIRATORY: No cough, wheezing, or hemoptysis. GASTROINTESTINAL: No nausea, vomiting, diarrhea or constipation. GENITOURINARY: No dysuria, frequency, or change in urination. MUSCULOSKELETAL: No joint or muscle swelling or pain. No neck or back pain. SKIN: No rash NEUROLOGIC: No headache, vertigo, loss of consciousness, or change in strength/ sensation. ENDOCRINE: No increased thirst. No abnormal weight change. HEMATOLOGIC/LYMPHATIC: No anemia, easy bleeding, or history of blood clots. ALLERGIC/IMMUNOLOGIC: No hives or skin allergy. <Smalls,Joelle - Last Filed: 09/13/17 15:46> *Physical Exam - Vital Signs Last Vital Signs Temp Pulse Resp BP Pulse Ox 98.0 F 88 18 117/78 98 09/13/17 14:44 09/13/17 14:44 09/13/17 14:44 09/13/17 14:44 09/13/17 14:44 - Physical Exam Comments: 09/13/17 15:47 GENERAL: Awake, alert, and fully oriented, (+) intoxicated. (+) Patient appears tearful. HEAD: No signs of trauma EYES: PERRLA, EOMI, sclera anicteric, conjunctiva clear ENT: Auricles normal inspection, hearing grossly normal, nares patent, oropharynx clear without exudates. Moist mucosa NECK: Normal ROM, supple, no lymphadenopathy, JVD, or masses LUNGS: Breath sounds equal, clear to auscultation bilaterally. No wheezes, and no crackles HEART: Regular rate and rhythm, normal S1 and S2, no murmurs, rubs or gallops ABDOMEN: Soft, nontender, normoactive bowel sounds. No guarding, no rebound. No masses EXTREMITIES: Normal range of motion, no edema. No clubbing or cyanosis. No cords, erythema, or tenderness NEUROLOGICAL: Cranial nerves II through XII grossly intact. Normal speech SKIN: Warm, Dry, normal turgor, no rashes noted. (+) Healing wounds to face. <Joelle Smalls - Last Filed: 09/13/17 15:46> - Vital Signs Last Vital Signs Temp Pulse Resp BP Pulse Ox 98.0 F 88 18 117/78 98 09/13/17 14:44 09/13/17 14:44 09/13/17 14:44 09/13/17 14:44 09/13/17 14:44 <Skye Rashid - Last Filed: 09/13/17 19:07> Medical Decision Making - Medical Decision Making 09/13/17 15:43 a/p: 62yo male arrives via medics for eval of alcohol intoxication -admits to drinking today -smell of etoh on his breath -empty bottle of vodka in his pocket -no new external signs of trauma - healing wounds to face that are old and were seen on prior visits (seen by me yesterday) -will monitor, allow pt to metabolize etoh 09/13/17 19:06 pt awake eating 2 meals no longer intoxicated stable for d/c to home requesting a cab to take him home <Skye Rashid - Last Filed: 09/13/17 19:07> *DC/Admit/Observation/Transfer - Attestations Scribe Attestion: 09/13/17 15:47 Documentation prepared by Joelle Smalls, acting as medical housekeeper for Skye Rashid DO, MD/. <Joelle Smalls - Last Filed: 09/13/17 15:46> - Discharge Dispostion Admit: No - Attestations Physician Attestion: 09/13/17 15:46 I, Dr. Skye Rashid DO, attest that this document has been prepared under my direction and personally reviewed by me in its entirety. I further attest, that it accurately reflects all work, treatment, procedures and medical decision -making performed by me. <Skye Rashid - Last Filed: 09/13/17 19:07> Diagnosis at time of Disposition: Alcohol dependence with intoxication - Discharge Dispostion Disposition: HOME Condition at time of disposition: Improved - Referrals Referrals: Sukhwinder Nguyen MD [Staff Physician] - Toni Iyer MD [Staff Physician] - - Patient Instructions Printed Discharge Instructions: DI for Alcohol Abuse Additional Instructions: Please stop drinking alcohol. Please go to detox. Please return to the ED with any further concerns.
== END 2017-09-13 19:31 | disposition home or self-care (01) ==
LOC: JER 14:28
DX: F10.220 Alcohol dependence with intoxication, uncomplicated (principal); I10 Essential (primary) hypertension; C45.9 Mesothelioma, unspecified; Z59.0 Homelessness
CPT/HCPCS: 99283-25

== ENCOUNTER 2017-09-14 14:30 | Emergency (ER) | payer OTHER ==
[2017-09-14 14:40] VITALS: BMI 42.0
--- NOTE | 2017-09-14 15:13 | PDOC ---
Attending Attestation - Resident Resident Name: Milind Mosher - ED Attending Attestation I have performed the following: I have examined & evaluated the patient, The case was reviewed & discussed with the resident, I agree w/resident's findings & plan, Exceptions are as noted - HPI HPI: 09/14/17 15:47 Sunil is a 62 yo M, well known to the ER He presented again via EMS due to intoxication and back pain PT states this is because he has been sitting forward in an awkward position No head trauma since his last discharge from our facility He is arousable and is able to answer my questions No focal weakness Pt would like to go home - Physicial Exam PE: 09/14/17 15:49 GENERAL: The patient is in no acute distress, malodorous, HEAD: Old signs of trauma, frontal scab, nasal bridge scab EYES: PERRLA, EOMI ENT: Ears normal, nares patent, oropharynx clear without exudates. Moist mucous membranes. NECK: Normal range of motion LUNGS: Breath sounds equal, clear to auscultation bilaterally. Rhoncherous breath sounds, exp wheezing HEART:Regular rate and rhythm ABDOMEN: Soft, nontender EXTREMITIES: Normal range of motion, no edema. No clubbing or cyanosis. No erythema, or tenderness. NEUROLOGICAL: Cranial nerves II through XII grossly intact. Normal speech. No focal neurological deficits. - Medical Decision Making 09/14/17 15:50 Is a 63-year-old male who is well-known to the emergency department, history of alcohol abuse who presents emergency department for complaints of back pain, intoxication. Patient attributes his back pain to his positioning over the past few days He wants to leave the ER
--- NOTE | 2017-09-14 15:24 | PDOC ---
History of Present Illness - General Chief Complaint: Back Pain Stated Complaint: REVISIT Time Seen by Provider: 09/14/17 14:52 - History of Present Illness Initial Comments: 09/14/17 15:21 62 yo M with h/o Mesothelioma, homelessness, HTN, recurrent ED visits, and EtoH abuse BIBA with EtoH intoxication. Patient picked up from street and brought in stable, but intoxicated by EMS. He denies complaints, and reports last alcohol use with vodka today. Denies falls, neck, back, or head trauma, or pain. Denies F/C, N/V, CP, SOB, abdominal pain, diarrhea, constipation, urinary complaints, weakness, lightheadedness, sensory changes. Pt. is well known to [facility] ED and has weekly ED visits for EtoH intoxication. Past History - Past Medical History Allergies/Adverse Reactions: Allergies Allergy/AdvReac Type Severity Reaction Status Date / Time Fish Containing Products Allergy Mild Verified 09/13/17 14:44 No Known Drug Allergies Allergy Verified 09/13/17 14:44 Home Medications: Ambulatory Orders NK [No Known Home Medication] 07/27/17 Anemia: No Asthma: No Cancer: Yes (mesothelioma) Cardiac Disorders: No CVA: No COPD: No CHF: No DVT: No Dementia: No Diabetes: No GI Disorders: No Disorders: No HTN: Yes Hypercholesterolemia: No Kidney Stones: No Liver Disease: No Psychiatric Problems: Yes (alcoholism) Seizures: No Thyroid Disease: No - Surgical History Abdominal Surgery: No Appendectomy: No Cardiac Surgery: No Cholecystectomy: No Lung Surgery: No Neurologic Surgery: No Orthopedic Surgery: No - Family Disease History Family Disease History: CA: Mother - Reproductive History Testicular Surgery: No - Immunization History TDAP Vaccination: Yes Immunization Up to Date: Yes - Suicide/Smoking/Psychosocial Hx Smoking Status: No Smoking History: Never smoked Have you smoked in the past 12 months: No Number of Cigarettes Smoked Daily: 0 If you are a former smoker, when did you quit?: 0 Cigars Per Day: 0 Information on smoking cessation initiated: No 'Breaking Loose' booklet given: 11/02/16 Hx Alcohol Use: No Drug/Substance Use Hx: No Substance Use Type: Alcohol Hx Substance Use Treatment: Yes Review of Systems - Review of Systems Comments:: 09/14/17 15:18 GENERAL/CONSTITUTIONAL: No fever or chills. No weakness. HEAD, EYES, EARS, NOSE AND THROAT: No change in vision. No ear pain or discharge. No sore throat. CARDIOVASCULAR: No chest pain or shortness of breath RESPIRATORY: No cough, wheezing, or hemoptysis. GASTROINTESTINAL: No nausea, vomiting, diarrhea or constipation. GENITOURINARY: No dysuria, frequency, or change in urination. MUSCULOSKELETAL: No joint or muscle swelling or pain. No neck or back pain. SKIN: No rash NEUROLOGIC: No headache, vertigo, loss of consciousness, or change in strength/ sensation. ENDOCRINE: No increased thirst. No abnormal weight change HEMATOLOGIC/LYMPHATIC: No anemia, easy bleeding, or history of blood clots. ALLERGIC/IMMUNOLOGIC: No hives or skin allergy. *Physical Exam - Vital Signs Last Vital Signs Temp Pulse Resp BP Pulse Ox 97.5 F L 92 H 16 150/92 95 09/14/17 14:37 09/14/17 14:37 09/14/17 14:37 09/14/17 14:37 09/14/17 14:37 - Physical Exam Comments: 09/14/17 15:21 GENERAL: Poor physical appearence and hygeine. Pt. appears disheveled. Awake, alert, and fully oriented, in no acute distress HEAD: No signs of trauma, normocephalic, atraumatic EYES:Healing ecchymosis on face. PERRLA, EOMI, sclera anicteric, conjunctiva clear ENT: Auricles normal inspection, hearing grossly normal, nares patent, oropharynx clear without exudates. Moist mucosa NECK: Normal ROM, supple, no lymphadenopathy, JVD, or masses LUNGS: No distress, speaks full sentences, clear to auscultation bilaterally HEART: Regular rate and rhythm, normal S1 and S2, no murmurs, rubs or gallops, peripheral pulses normal and equal bilaterally. ABDOMEN: Soft, nontender, normoactive bowel sounds. No guarding, no rebound. No masses EXTREMITIES : Normal inspection, Normal range of motion, no edema. No clubbing or cyanosis. NEUROLOGICAL: Cranial nerves II through XII grossly intact. Normal speech, no focal sensorimotor deficits SKIN: Warm, Dry, normal turgor, no rashes or lesions noted Medical Decision Making - Medical Decision Making 09/14/17 15:22 62 yo M with h/o Mesothelioma, homelessness, HTN, recurrent ED visits, and EtoH abuse BIBA with EtoH intoxication. Denies falls, neck, back, or head trauma, or pain. Denies F/C, N/V, CP, SOB, abdominal pain, diarrhea, constipation, urinary complaints, weakness, lightheadedness, sensory changes. Pt. is well known to [facility] ED and has weekly ED visits for EtoH intoxication. Physical exam unremarkable and HDS. Patient is stable at present and with no evidence of trauma, or distress. Will reasess patient in ED and allow pt. to metabolized EtoH. Ed Course: 09/14/17 15:42 Pt. requests d/c. Patient stable for d/c with return precautions. *DC/Admit/Observation/Transfer Diagnosis at time of Disposition: Intoxication - Discharge Dispostion Disposition: HOME Condition at time of disposition: Stable Admit: No - Referrals Referrals: Toni Iyer MD [Staff Physician] - - Patient Instructions Printed Discharge Instructions: DI for Alcohol Abuse Additional Instructions: Please return to the emergency department with any new or worsening symptoms or concerns. Please follow up with your primary care physician within 72 hours. Print Language: SETSWANA - Post Discharge Activity - Attestations Physician Attestion: 09/14/17 15:28 I attest to the information provided in this note.
[2017-09-14 16:29] VITALS: BP 125/81; PULSE 76; TEMP 98.1
== END 2017-09-14 17:15 | disposition home or self-care (01) ==
LOC: JER 14:30
DX: F10.220 Alcohol dependence with intoxication, uncomplicated (principal); I10 Essential (primary) hypertension; C45.9 Mesothelioma, unspecified; M54.5 Low back pain; X50.1XXA Overexertion from prolonged static or awkward postures, initial encounter; Y93.89 Activity, other specified; Y92.414 Local residential or business street as the place of occurrence of the external cause; Z59.0 Homelessness
CPT/HCPCS: 99281-25

== ENCOUNTER 2017-09-14 20:41 | Emergency (ER) | payer OTHER ==
--- NOTE | 2017-09-14 20:54 | PDOC ---
Rapid Medical Evaluation Chief Complaint: Alcohol intoxication Time Seen by Provider: 09/14/17 20:53 Medical Evaluation: Allergies Allergy/AdvReac Type Severity Reaction Status Date / Time Fish Containing Products Allergy Mild Verified 09/13/17 14:44 No Known Drug Allergies Allergy Verified 09/13/17 14:44 09/14/17 20:54 The patient presents with a chief complaint of: drank vodka I have performed a brief in-person evaluation of this patient. Pertinent physical exam findings: vss, alert and oriented I have ordered the following: na The patient will proceed to the ED for further evaluation.
[2017-09-14 20:59] VITALS: BP 120/66; PULSE 89; TEMP 97.3; BMI 32.3
--- NOTE | 2017-09-14 21:19 | PDOC ---
Attending Attestation - Resident Resident Name: [email or web address] - ED Attending Attestation I have performed the following: I have examined & evaluated the patient, The case was reviewed & discussed with the resident, I agree w/resident's findings & plan, Exceptions are as noted - HPI HPI: 09/14/17 21:18 62-year-old male with history of vocal abuse, multiple medical problems, well- known to the emergency department presents with alcohol intoxication. Patient is no other complaints and is requesting food. - Physicial Exam PE: 09/14/17 21:18 GENERAL: Awake, alert, intoxicated. HEAD: No signs of trauma EYES: PERRLA, EOMI, sclera anicteric, conjunctiva clear ENT: Auricles normal inspection, hearing grossly normal, nares patent NECK: Normal ROM, supple NEUROLOGICAL: Cranial nerves II through XII grossly intact. - Medical Decision Making 09/14/17 21:19 Vital Signs Temp Pulse Resp BP Pulse Ox 97.3 F L 89 18 120/66 95 09/14/17 20:57 09/14/17 20:57 09/14/17 20:57 09/14/17 20:57 09/14/17 20:57 Patient presents with alcohol intoxication. We'll observe the patient, once sober, the patient can be discharged.
--- NOTE | 2017-09-14 21:36 | PDOC ---
History of Present Illness - General Chief Complaint: Alcohol intoxication Stated Complaint: INTOX Time Seen by Provider: 09/14/17 20:53 - History of Present Illness Initial Comments: 62 year male well known to our service states that he drank a pint of vodka today and wants to clean his life up. He found the officers on the road and asked them to bring him to [facility]. He asked for a sandwich and for me to pray for him. He has no other complaints. Denies fevers, chills, nausea, vomiting, diarrheas, constipation, chest pain, or SOB. 09/14/17 21:30 Past History - Past Medical History Allergies/Adverse Reactions: Allergies Allergy/AdvReac Type Severity Reaction Status Date / Time Fish Containing Products Allergy Mild Verified 09/14/17 20:56 No Known Drug Allergies Allergy Verified 09/14/17 20:56 Home Medications: Ambulatory Orders NK [No Known Home Medication] 07/27/17 Anemia: No Asthma: No Cancer: Yes (mesothelioma) Cardiac Disorders: No CVA: No COPD: No CHF: No DVT: No Dementia: No Diabetes: No GI Disorders: No Disorders: No HTN: Yes Hypercholesterolemia: No Kidney Stones: No Liver Disease: No Psychiatric Problems: Yes (alcoholism) Seizures: No Thyroid Disease: No - Surgical History Abdominal Surgery: No Appendectomy: No Cardiac Surgery: No Cholecystectomy: No Lung Surgery: No Neurologic Surgery: No Orthopedic Surgery: No - Family Disease History Family Disease History: CA: Mother - Reproductive History Testicular Surgery: No - Immunization History TDAP Vaccination: Yes Immunization Up to Date: Yes - Suicide/Smoking/Psychosocial Hx Smoking Status: No Smoking History: Never smoked Have you smoked in the past 12 months: No Number of Cigarettes Smoked Daily: 0 If you are a former smoker, when did you quit?: 0 Cigars Per Day: 0 'Breaking Loose' booklet given: 11/02/16 Hx Alcohol Use: No Drug/Substance Use Hx: No Substance Use Type: Alcohol Hx Substance Use Treatment: Yes Review of Systems - Review of Systems Constitutional: No: Chills, Diaphoresis, Fever HEENTM: No: Eye Pain, Blurred Vision Respiratory: No: Cough, Orthopnea Cardiac (ROS): No: Chest Pain, Edema ABD/GI: No: Diarrhea, Nausea, Vomiting : No: Burning, Dysuria, Discharge Musculoskeletal: No: Back Pain, Joint Pain Integumentary: No: Bruising, Change in Color Neurological: No: Headache, Numbness, Paresthesia *Physical Exam - Vital Signs Last Vital Signs Temp Pulse Resp BP Pulse Ox 97.3 F L 89 18 120/66 95 09/14/17 20:57 09/14/17 20:57 09/14/17 20:57 09/14/17 20:57 09/14/17 20:57 - Physical Exam General Appearance: Yes: Nourished, Appropriately Dressed, Alcohol on Breath, Intoxicated. No: Apparent Distress HEENT: positive: EOMI, DOUGLAS, Normal ENT Inspection, Normal Voice Neck: positive: Trachea midline, Normal Thyroid, Supple. negative: Tender, Rigid Respiratory/Chest: positive: Lungs Clear, Normal Breath Sounds. negative: Chest Tender, Respiratory Distress Cardiovascular: positive: Regular Rhythm, Regular Rate Gastrointestinal/Abdominal: positive: Normal Bowel Sounds, Flat, Soft. negative : Tender Musculoskeletal: positive: Normal Inspection. negative: Decreased Range of Motion Extremity: positive: Normal Capillary Refill, Normal Inspection, Normal Range of Motion. negative: Tender Integumentary: positive: Normal Color, Dry, Warm Neurologic: positive: Fully Oriented, Alert, Normal Mood/Affect, Normal Response , Motor Strength 5/5 Medical Decision Making - Medical Decision Making Patient clinically sober and would like to go home. Will DC with return precautions after EtOH consumption intervention. 09/15/17 06:23 *DC/Admit/Observation/Transfer Diagnosis at time of Disposition: Alcohol abuse with intoxication - Discharge Dispostion Disposition: HOME Condition at time of disposition: Improved Admit: No - Referrals Referrals: Toni Iyer MD [Staff Physician] - - Patient Instructions Additional Instructions: Please stop drinking!!!! - Post Discharge Activity
== END 2017-09-15 06:45 | disposition home or self-care (01) ==
LOC: JER 20:41
DX: F10.220 Alcohol dependence with intoxication, uncomplicated (principal); I10 Essential (primary) hypertension; C45.9 Mesothelioma, unspecified; Z59.0 Homelessness
CPT/HCPCS: 99282-25

== ENCOUNTER 2017-09-16 15:50 | Emergency (ER) | payer OTHER ==
[2017-09-16 16:52] VITALS: BP 124/76; PULSE 87; TEMP 97.5; BMI 32.5
--- NOTE | 2017-09-16 17:18 | PDOC ---
History of Present Illness - General History Source: Patient Exam Limitations: No Limitations - History of Present Illness Initial Comments: 09/16/17 17:26 The patient is a 62 year old male, well known to this ED, with a significant past medical history of hypertension, mesothelioma, and ETOH abuse, who presents to the emergency department with ETOH intoxication. Patient picked up from street and brought in stable, but intoxicated by EMS. Patient reports mild shortness of breath and chest pain in the ED, while seeing [employer] which triggered him to think about his son who and was a former [employer] spectroscopist. He denies any diaphoresis, palpitations, abdominal pain, nausea, vomiting, diarrhea, constipation, fever, or chills. He denies any recent fall neck/back/head trauma or pain. Allergies: NKDA Social History: ETOH abuse. Non smoker. No recreational drug use. <Marjorie Yarbrough - Last Filed: 09/16/17 17:26> <Sadia Cornell - Last Filed: 09/16/17 18:34> - General Chief Complaint: Alcohol intoxication Stated Complaint: Alcohol intoxication Time Seen by Provider: 09/16/17 16:11 Past History <Marjorie Yarbrough - Last Filed: 09/16/17 17:26> - Past Medical History Anemia: No Asthma: No Cancer: Yes (mesothelioma) Cardiac Disorders: No CVA: No COPD: No CHF: No DVT: No Dementia: No Diabetes: No GI Disorders: No Disorders: No HTN: Yes Hypercholesterolemia: No Kidney Stones: No Liver Disease: No Psychiatric Problems: Yes (alcoholism) Seizures: No Thyroid Disease: No - Surgical History Abdominal Surgery: No Appendectomy: No Cardiac Surgery: No Cholecystectomy: No Lung Surgery: No Neurologic Surgery: No Orthopedic Surgery: No - Family Disease History Family Disease History: CA: Mother - Reproductive History Testicular Surgery: No - Immunization History TDAP Vaccination: Yes Immunization Up to Date: Yes - Suicide/Smoking/Psychosocial Hx Smoking Status: No Smoking History: Never smoked Have you smoked in the past 12 months: No Number of Cigarettes Smoked Daily: 0 If you are a former smoker, when did you quit?: 0 Cigars Per Day: 0 'Breaking Loose' booklet given: 11/02/16 Hx Alcohol Use: Yes Drug/Substance Use Hx: No Substance Use Type: Alcohol Hx Substance Use Treatment: Yes <Sadia Cornell - Last Filed: 09/16/17 18:34> - Past Medical History Allergies/Adverse Reactions: Allergies Allergy/AdvReac Type Severity Reaction Status Date / Time Fish Containing Products Allergy Mild Swelling Verified 09/16/17 16:52 No Known Drug Allergies Allergy Verified 09/14/17 20:56 Home Medications: Ambulatory Orders NK [No Known Home Medication] 07/27/17 Review of Systems - Review of Systems Able to Perform ROS?: Yes Comments:: 09/16/17 17:27 GENERAL/CONSTITUTIONAL: No: fever, chills, weakness, loss of appetite. HEAD, EYES, EARS, NOSE AND THROAT: No: change in vision, ear pain, discharge, sore throat, throat swelling. CARDIOVASCULAR: No: chest pain, lightheadedness, palpitations, syncope RESPIRATORY: No: cough, shortness of breath, wheezing, hemoptysis, stridor. GASTROINTESTINAL: No: nausea, vomiting, abdominal cramping, diarrhea, rectal bleeding, constipation. GENITOURINARY: No: dysuria, hematuria, frequency, urgency, flank pain. MUSCULOSKELETAL: No: back pain, neck pain, joint pain, muscle swelling or pain SKIN AND BREASTS: No: lesions, pallor, rash or easy bruising. NEUROLOGIC: No: headache, vertigo, paresthesias, weakness ENDOCRINE: No: unexplained weight gain or loss HEMATOLOGIC/LYMPHATIC: No: anemia, easy bleeding, swelling nodes <Yarbrough,Giomilsy - Last Filed: 09/16/17 17:26> *Physical Exam - Vital Signs Last Vital Signs Temp Pulse Resp BP Pulse Ox 97.5 F L 87 22 124/76 95 09/16/17 16:49 09/16/17 16:49 09/16/17 16:49 09/16/17 16:49 09/16/17 16:49 - Physical Exam Comments: 09/16/17 17:27 GENERAL: (+) intoxicated. (+) Patient appears tearful. In no acute distress. HEAD: Normal with no signs of trauma. EYES: PERRLA, EOMI, sclera anicteric, conjunctiva clear. ENT: Ears normal, nares patent, oropharynx clear without exudates. Moist mucous membranes. NECK: Normal range of motion, supple without lymphadenopathy, JVD, or masses. LUNGS: Breath sounds equal, clear to auscultation bilaterally. No wheezes, and no crackles. HEART:Regular rate and rhythm, normal S1 and S2 without murmur, rub or gallop. ABDOMEN: Soft, nontender, normoactive bowel sounds. No guarding, no rebound. EXTREMITIES: Normal range of motion, no edema. No clubbing or cyanosis. No erythema, or tenderness. NEUROLOGICAL: Cranial nerves II through XII grossly intact. Normal speech. No focal neurological deficits. MUSCULOSKELETAL: Back non-tender to palpation, no CVA tenderness SKIN: Warm, Dry, normal turgor, no rashes noted. (+) Healing wounds to face. <Marjorie Yarbrough - Last Filed: 09/16/17 17:26> - Vital Signs Last Vital Signs Temp Pulse Resp BP Pulse Ox 97.5 F L 87 22 124/76 95 09/16/17 16:49 09/16/17 16:49 09/16/17 16:49 09/16/17 16:49 09/16/17 16:49 <Sadia Cornell - Last Filed: 09/16/17 18:34> Medical Decision Making - Medical Decision Making 09/16/17 17:19 Sunil is a 62 yo M, well known to the ER He presented again via EMS due to intoxication He has no other complaints to me He is tearful Repeatedly asking about his son No focal weakness Pt would like to go home 09/14/17 15:49 GENERAL: The patient is in no acute distress, malodorous, tearful HEAD: Old signs of trauma, frontal scab, nasal bridge scab EYES: PERRLA, EOMI ENT: Ears normal, nares patent, oropharynx clear without exudates. Moist mucous membranes. NECK: Normal range of motion LUNGS: Breath sounds equal, clear to auscultation bilaterally. Rhoncherous breath sounds, exp wheezing HEART:Regular rate and rhythm ABDOMEN: Soft, nontender EXTREMITIES: Normal range of motion, no edema. No clubbing or cyanosis. No erythema, or tenderness. NEUROLOGICAL: Cranial nerves II through XII grossly intact. Normal speech. No focal neurological deficits. Is a 63-year-old male who is well-known to the emergency department, history of alcohol abuse who presents emergency department for complaints of back pain, intoxication. Patient attributes his back pain to his positioning over the past few days He wants to leave the ER <Sadia Cornell - Last Filed: 09/16/17 18:34> *DC/Admit/Observation/Transfer - Attestations Scribe Attestion: 09/16/17 17:27 Documentation prepared by Marjorie Yarbrough, acting as center medical director for Sadia Cornell MD. <Marjorie Yarbrough - Last Filed: 09/16/17 17:26> - Discharge Dispostion Admit: No <Sadia Cornell - Last Filed: 09/16/17 18:34> Diagnosis at time of Disposition: Intoxication - Discharge Dispostion Disposition: HOME Condition at time of disposition: Fair - Patient Instructions Printed Discharge Instructions: DI for Alcohol Abuse
== END 2017-09-16 18:53 | disposition home or self-care (01) ==
LOC: JER 15:50
DX: F10.120 Alcohol abuse with intoxication, uncomplicated (principal); I10 Essential (primary) hypertension; D19.9 Benign neoplasm of mesothelial tissue, unspecified
CPT/HCPCS: 99281-25

== ENCOUNTER 2017-09-19 14:04 | Emergency (ER) | payer OTHER ==
[2017-09-19 14:09] VITALS: BP 126/80; PULSE 75; TEMP 98.3; BMI 35.5
--- NOTE | 2017-09-19 14:26 | PDOC ---
Attending Attestation - HPI HPI: 09/19/17 15:11 The patient is a 62 yo M with PMH of Mesothelioma, homelessness, HTN, recurrent ED visits, and EtoH abuse BIBA with EtoH intoxication. Patient picked up from street and brought in stable, but intoxicated by EMS. He denies complaints. Denies falls, neck, back, or head trauma, or pain. The patient denies chest pain, shortness of breath, headache and dizziness. Denies fever, chills, nausea, vomit, diarrhea and constipation. Denies dysuria, frequency, urgency and hematuria. - Physicial Exam PE: 09/19/17 15:13 GENERAL: Awake, alert, and fully oriented, in no acute distress. Disheveled with poor appearance and personal hygeine. HEAD: No signs of trauma, normocephalic, atraumatic EYES: PERRLA, EOMI, sclera anicteric, conjunctiva clear ENT:Hearing grossly normal, nares patent, oropharynx clear without exudates. Moist mucosa NECK: Normal ROM, supple, no lymphadenopathy, JVD, or masses LUNGS: No distress, speaks full sentences, clear to auscultation bilaterally HEART: Regular rate and rhythm, normal S1 and S2, no murmurs, rubs or gallops, peripheral pulses normal and equal bilaterally. EXTREMITIES : Normal inspection, Normal range of motion, no edema. No clubbing or cyanosis. SKIN: Warm, Dry, normal turgor, no rashes or lesions noted - Medical Decision Making 09/19/17 15:12 Documentation prepared by Geovanna Vera, acting as medical instrument cable fabricator for Nuris Smith MD. <Geovanna Vera - Last Filed: 09/19/17 15:13> - Medical Decision Making 09/19/17 15:44 Pt presents to the ED complaining that he is intoxicated. Patient does not report how much he drank today, only states " not enough". He is oriented and ambulatory in the ED with a steady gait. Denies other medical complaints. Will discharge home. <Nuris Smith - Last Filed: 09/19/17 16:07>
--- NOTE | 2017-09-19 14:29 | PDOC ---
History of Present Illness - General Chief Complaint: Alcohol intoxication Stated Complaint: KNEE PAIN Time Seen by Provider: 09/19/17 14:25 - History of Present Illness Initial Comments: 09/19/17 14:29 62 yo M with h/o Mesothelioma, homelessness, HTN, recurrent ED visits, and EtoH abuse BIBA with EtoH intoxication. Patient picked up from street and brought in stable, but intoxicated per EMS. Nursing report of knee pain, but pt. denies knee pain when questioned at bedside. States that he is hungry and wants food. He denies complaints, denies alcohol use today. Denies falls, neck, back, or head trauma, or pain. Denies F/C, N/V, CP, SOB, abdominal pain, diarrhea, constipation, urinary complaints, weakness, tremors, hallucinations, lightheadedness, sensory changes. Pt. is well known to [facility] ED and has weekly ED visits for EtoH intoxication. Past History - Past Medical History Allergies/Adverse Reactions: Allergies Allergy/AdvReac Type Severity Reaction Status Date / Time Fish Containing Products Allergy Mild Swelling Verified 09/18/17 23:44 No Known Drug Allergies Allergy Verified 09/18/17 23:44 Home Medications: Ambulatory Orders NK [No Known Home Medication] 07/27/17 Anemia: No Asthma: No Cancer: Yes (mesothelioma) Cardiac Disorders: No CVA: No COPD: No CHF: No DVT: No Dementia: No Diabetes: No GI Disorders: No Disorders: No HTN: Yes Hypercholesterolemia: No Kidney Stones: No Liver Disease: No Psychiatric Problems: Yes (alcoholism) Seizures: No Thyroid Disease: No - Surgical History Abdominal Surgery: No Appendectomy: No Cardiac Surgery: No Cholecystectomy: No Lung Surgery: No Neurologic Surgery: No Orthopedic Surgery: No - Family Disease History Family Disease History: CA: Mother - Reproductive History Testicular Surgery: No - Immunization History TDAP Vaccination: Yes Immunization Up to Date: Yes - Suicide/Smoking/Psychosocial Hx Smoking Status: No Smoking History: Never smoked Have you smoked in the past 12 months: No Number of Cigarettes Smoked Daily: 0 If you are a former smoker, when did you quit?: 0 Cigars Per Day: 0 Information on smoking cessation initiated: No 'Breaking Loose' booklet given: 11/02/16 Hx Alcohol Use: Yes Drug/Substance Use Hx: No Substance Use Type: Alcohol Hx Substance Use Treatment: Yes Review of Systems - Review of Systems Comments:: 09/19/17 14:28 GENERAL/CONSTITUTIONAL: No fever or chills. No weakness. HEAD, EYES, EARS, NOSE AND THROAT: No change in vision. No ear pain or discharge. No sore throat. CARDIOVASCULAR: No chest pain or shortness of breath RESPIRATORY: No cough, wheezing, or hemoptysis. GASTROINTESTINAL: No nausea, vomiting, diarrhea or constipation. GENITOURINARY: No dysuria, frequency, or change in urination. MUSCULOSKELETAL: No joint or muscle swelling or pain. No neck or back pain. SKIN: No rash NEUROLOGIC: No headache, vertigo, loss of consciousness, or change in strength/ sensation. ENDOCRINE: No increased thirst. No abnormal weight change HEMATOLOGIC/LYMPHATIC: No anemia, easy bleeding, or history of blood clots. ALLERGIC/IMMUNOLOGIC: No hives or skin allergy. *Physical Exam - Vital Signs Last Vital Signs Temp Pulse Resp BP Pulse Ox 98.3 F 75 18 126/80 99 09/19/17 14:06 09/19/17 14:06 09/19/17 14:06 09/19/17 14:06 09/19/17 14:06 - Physical Exam Comments: 09/19/17 14:28 GENERAL: Awake, alert, and fully oriented, in no acute distress. Disheveled with poor appearance and personal hygeine. HEAD: No signs of trauma, normocephalic, atraumatic EYES: PERRLA, EOMI, sclera anicteric, conjunctiva clear ENT:Hearing grossly normal, nares patent, oropharynx clear without exudates. Moist mucosa NECK: Normal ROM, supple, no lymphadenopathy, JVD, or masses LUNGS: No distress, speaks full sentences, clear to auscultation bilaterally HEART: Regular rate and rhythm, normal S1 and S2, no murmurs, rubs or gallops, peripheral pulses normal and equal bilaterally. EXTREMITIES : Normal inspection, Normal range of motion, no edema. No clubbing or cyanosis. SKIN: Warm, Dry, normal turgor, no rashes or lesions noted Medical Decision Making - Medical Decision Making 09/19/17 14:33 62 yo M with h/o Mesothelioma, homelessness, HTN, recurrent ED visits, and EtoH abuse BIBA with EtoH intoxication. Currently denies complaints, and denies alcohol use today. Denies falls, neck, back, or head trauma, or pain. Denies F/C , N/V, CP, SOB, abdominal pain, diarrhea, constipation, urinary complaints, weakness, tremors, hallucinations, lightheadedness, sensory changes. Pt. is well known to [facility] ED and has weekly ED visits for EtoH intoxication. No evidence of acute alcohol withdrawal at this time. Will reevaluate pt. Ed Course: 09/19/17 15:25 Pt. stable at bedside 09/19/17 15:49 Pt. ambulating w/out difficulty. Stable for d/c with return precautions. *DC/Admit/Observation/Transfer Diagnosis at time of Disposition: Intoxication - Referrals Referrals: Garima Bridges MD [Primary Care Provider] - - Patient Instructions Printed Discharge Instructions: DI for Alcohol Abuse Additional Instructions: Please return to the emergency department with any new or worsening symptoms or concerns. Please follow up with your primary care physician within 72 hours. - Post Discharge Activity - Attestations Physician Attestion: 09/19/17 14:29 I attest to the information provided in this note.
== END 2017-09-19 16:24 | disposition home or self-care (01) ==
LOC: JER 14:04
DX: F10.220 Alcohol dependence with intoxication, uncomplicated (principal); I10 Essential (primary) hypertension; C45.9 Mesothelioma, unspecified; Z59.0 Homelessness
CPT/HCPCS: 99284-25

== ENCOUNTER 2017-09-19 21:07 | Emergency (ER) | payer OTHER ==
[2017-09-19 21:18] VITALS: TEMP 97.9; BMI 36.3
--- NOTE | 2017-09-20 08:17 | PDOC ---
History of Present Illness - General Chief Complaint: Alcohol intoxication Stated Complaint: INTOX Time Seen by Provider: 09/20/17 08:17 - History of Present Illness Initial Comments: 62 y old male with frequent visits to our ED for intoxication presenting slightly intoxicated and complaining of back pain with a fall that he was unclear about the details of. He continuously asked for tylenol. 09/20/17 11:14 Past History - Past Medical History Allergies/Adverse Reactions: Allergies Allergy/AdvReac Type Severity Reaction Status Date / Time Fish Containing Products Allergy Mild Swelling Verified 09/19/17 21:18 No Known Drug Allergies Allergy Verified 09/19/17 21:18 Home Medications: Ambulatory Orders NK [No Known Home Medication] 07/27/17 Anemia: No Asthma: No Cancer: Yes (mesothelioma) Cardiac Disorders: No CVA: No COPD: No CHF: No DVT: No Dementia: No Diabetes: No GI Disorders: No Disorders: No HTN: Yes Hypercholesterolemia: No Kidney Stones: No Liver Disease: No Psychiatric Problems: Yes (alcoholism) Seizures: No Thyroid Disease: No - Surgical History Abdominal Surgery: No Appendectomy: No Cardiac Surgery: No Cholecystectomy: No Lung Surgery: No Neurologic Surgery: No Orthopedic Surgery: No - Family Disease History Family Disease History: CA: Mother - Reproductive History Testicular Surgery: No - Immunization History TDAP Vaccination: Yes Immunization Up to Date: Yes - Suicide/Smoking/Psychosocial Hx Smoking Status: No Smoking History: Never smoked Have you smoked in the past 12 months: No Number of Cigarettes Smoked Daily: 0 If you are a former smoker, when did you quit?: 0 Cigars Per Day: 0 Information on smoking cessation initiated: No 'Breaking Loose' booklet given: 11/02/16 Hx Alcohol Use: No Drug/Substance Use Hx: No Substance Use Type: Alcohol Hx Substance Use Treatment: Yes *Physical Exam - Vital Signs Last Vital Signs Temp Pulse Resp BP Pulse Ox 97.9 F 88 24 158/82 91 L 09/19/17 21:14 09/19/17 21:14 09/19/17 21:14 09/19/17 21:14 09/19/17 21:14 *DC/Admit/Observation/Transfer Diagnosis at time of Disposition: d/c - Referrals - Patient Instructions - Post Discharge Activity
[2017-09-20 08:25] VITALS: BP 146/70; PULSE 80
[2017-09-20] MEDS ORDERED: ACETAMINOPHEN 500 MG TABLET (FP) PO ONE (09:05)
--- NOTE | 2017-09-20 15:03 | PDOC ---
Attending Attestation - Resident Resident Name: Ronald Rizzo - ED Attending Attestation I have performed the following: I have examined & evaluated the patient, The case was reviewed & discussed with the resident, I agree w/resident's findings & plan, Exceptions are as noted
== END 2017-09-20 11:47 | disposition home or self-care (01) ==
LOC: JER 21:07
DX: F10.220 Alcohol dependence with intoxication, uncomplicated (principal); M54.5 Low back pain; I10 Essential (primary) hypertension; C45.9 Mesothelioma, unspecified; Z59.0 Homelessness
CPT/HCPCS: 99283-25

== ENCOUNTER 2017-09-20 15:21 | Emergency (ER) | payer OTHER ==
[2017-09-20 15:38] VITALS: BP 108/60; PULSE 92; TEMP 97.8; BMI 41.9
--- NOTE | 2017-09-20 17:21 | PDOC ---
History of Present Illness - General Chief Complaint: Back Pain Stated Complaint: BACK PAIN Time Seen by Provider: 09/20/17 17:20 - History of Present Illness Initial Comments: 09/20/17 17:20 62 yo M with h/o Mesothelioma, homelessness, HTN, recurrent ED visits, and EtoH abuse BIBA with EtoH intoxication and back pain. Patient picked up from street and brought in stable, but intoxicated per EMS. Pt. reports lower back pain but unable to characterize or quantify. Denies heavy lifting, straining, repetitive movement, or alarm symptoms. He denies complaints, denies alcohol use today. Denies falls, neck, back, or head trauma. Denies F/C, N/V, CP, SOB, abdominal pain, diarrhea, constipation, urinary complaints, weakness, tremors, hallucinations, lightheadedness, sensory changes. Pt. is well known to [facility] ED and has weekly ED visits for EtoH intoxication. Past History - Past Medical History Allergies/Adverse Reactions: Allergies Allergy/AdvReac Type Severity Reaction Status Date / Time Fish Containing Products Allergy Mild Swelling Verified 09/20/17 15:35 No Known Drug Allergies Allergy Verified 09/20/17 15:35 Home Medications: Ambulatory Orders NK [No Known Home Medication] 07/27/17 Anemia: No Asthma: No Cancer: Yes (mesothelioma) Cardiac Disorders: No CVA: No COPD: No CHF: No DVT: No Dementia: No Diabetes: No GI Disorders: No Disorders: No HTN: Yes Hypercholesterolemia: No Kidney Stones: No Liver Disease: No Psychiatric Problems: Yes (alcoholism) Seizures: No Thyroid Disease: No - Surgical History Abdominal Surgery: No Appendectomy: No Cardiac Surgery: No Cholecystectomy: No Lung Surgery: No Neurologic Surgery: No Orthopedic Surgery: No - Family Disease History Family Disease History: CA: Mother - Reproductive History Testicular Surgery: No - Immunization History TDAP Vaccination: Yes Immunization Up to Date: Yes - Suicide/Smoking/Psychosocial Hx Smoking Status: No Smoking History: Unknown if ever smoked Have you smoked in the past 12 months: No Number of Cigarettes Smoked Daily: 0 If you are a former smoker, when did you quit?: 0 Cigars Per Day: 0 Information on smoking cessation initiated: No 'Breaking Loose' booklet given: 11/02/16 Hx Alcohol Use: Yes (DAILY) Drug/Substance Use Hx: No Substance Use Type: Alcohol Hx Substance Use Treatment: Yes Review of Systems - Review of Systems Comments:: 09/20/17 17:20 GENERAL/CONSTITUTIONAL: No fever or chills. No weakness. HEAD, EYES, EARS, NOSE AND THROAT: No change in vision. No ear pain or discharge. No sore throat. CARDIOVASCULAR: No chest pain or shortness of breath RESPIRATORY: No cough, wheezing, or hemoptysis. GASTROINTESTINAL: No nausea, vomiting, diarrhea or constipation. GENITOURINARY: No dysuria, frequency, or change in urination. MUSCULOSKELETAL: + Back pain. No joint or muscle swelling or pain. No neck pain. SKIN: No rash NEUROLOGIC: No headache, vertigo, loss of consciousness, or change in strength/ sensation. ENDOCRINE: No increased thirst. No abnormal weight change HEMATOLOGIC/LYMPHATIC: No anemia, easy bleeding, or history of blood clots. ALLERGIC/IMMUNOLOGIC: No hives or skin allergy. *Physical Exam - Vital Signs Last Vital Signs Temp Pulse Resp BP Pulse Ox 97.8 F 92 H 16 108/60 100 09/20/17 15:35 09/20/17 15:35 09/20/17 15:35 09/20/17 15:35 09/20/17 15:35 - Physical Exam Comments: 09/20/17 17:20 GENERAL: Awake, alert, and fully oriented, in no acute distress. Disheveled with poor appearance and personal hygeine. HEAD: No signs of trauma, normocephalic, atraumatic EYES: PERRLA, EOMI, sclera anicteric, conjunctiva clear ENT:Hearing grossly normal, nares patent, oropharynx clear without exudates. Moist mucosa NECK: Normal ROM, supple, no lymphadenopathy, JVD, or masses Back: Neg straight leg raise test. Neg spinal and paraspinal ttp. No obvious bony deformity. LUNGS: No distress, speaks full sentences, clear to auscultation bilaterally HEART: Regular rate and rhythm, normal S1 and S2, no murmurs, rubs or gallops, peripheral pulses normal and equal bilaterally. EXTREMITIES : Normal inspection, Normal range of motion, no edema. No clubbing or cyanosis. SKIN: Warm, Dry, normal turgor, no rashes or lesions noted Medical Decision Making - Medical Decision Making 09/20/17 18:52 62 yo M with h/o Mesothelioma, homelessness, HTN, recurrent ED visits, and EtoH abuse BIBA with EtoH intoxication and back pain. Pt. currently intoxicated and unable to characterize or quantify pain. Denies heavy lifting, straining, repetitive movement, or alarm symptoms. Denies falls, neck, back, or head trauma. Denies F/C, N/V, CP, SOB, abdominal pain, diarrhea, constipation, urinary complaints, weakness, tremors, hallucinations, lightheadedness, sensory changes. No evidence of delerium tremens, or convulsions. No alarm findings to suggest cauda equina, pyelonephritis, or aortic dissection. Will evaluate patient in ED. ED Course: 09/20/17 19:08 Pt. stable and signed out to nighteeam. *DC/Admit/Observation/Transfer - Referrals Referrals: Toni Iyer MD [Staff Physician] - - Patient Instructions Additional Instructions: Please return to the emergency department with any new or worsening symptoms or concerns. Please follow up with your primary care physician within 72 hours. - Post Discharge Activity - Attestations Physician Attestion: 09/20/17 17:21 I attest to the information provided in this note.
--- NOTE | 2017-09-20 19:44 | PDOC ---
Attending Attestation - Resident Resident Name: Milind Mosher - ED Attending Attestation I have performed the following: I have examined & evaluated the patient, The case was reviewed & discussed with the resident, I agree w/resident's findings & plan, Exceptions are as noted - HPI HPI: 09/20/17 19:43 62 yo male with h/o etoh abuse, frequent visits to ed, just here earlier today, here c/o back pain. denies trauma, sena f/c no new weakness. intoxicated. - Physicial Exam PE: 09/20/17 19:43 awake but drowsy, disheveled. lungs clear bilaterally. heart rrr on mrg. abd soft obese nontender. moves all extremities. - Medical Decision Making 09/20/17 19:44 plan await sobriety, reassess. dc. tylenol as needed for pain,
== END 2017-09-20 21:54 | disposition left against medical advice (07) ==
LOC: JER 15:21
DX: F10.220 Alcohol dependence with intoxication, uncomplicated (principal); I10 Essential (primary) hypertension; C45.9 Mesothelioma, unspecified; Z59.0 Homelessness
CPT/HCPCS: 99281-25

== ENCOUNTER → 2017-09-22 | Emergency (ER) | payer OTHER ==
--- NOTE | 2017-09-22 15:26 | PDOC ---
Rapid Medical Evaluation Chief Complaint: Alcohol intoxication Time Seen by Provider: 09/22/17 15:24 Medical Evaluation: Allergies Allergy/AdvReac Type Severity Reaction Status Date / Time Fish Containing Products Allergy Mild Swelling Verified 09/20/17 15:35 No Known Drug Allergies Allergy Verified 09/20/17 15:35 09/22/17 15:25 I have performed a brief in-person evaluation of this patient. The patient presents with a chief complaint of: found by [employer], intoxicated on train Pertinent physical exam findings: well appearing I have ordered the following: nothing The patient will proceed to the ED for further evaluation. Discharge Disposition - Diagnosis Intoxication - Referrals - Patient Instructions - Post Discharge Activity
[2017-09-22 15:27] VITALS: BP 108/68; PULSE 86; TEMP 97.9; BMI 35.5
--- NOTE | 2017-09-22 21:24 | PDOC ---
History of Present Illness - General Chief Complaint: Alcohol intoxication Stated Complaint: Alcohol intoxication Time Seen by Provider: 09/22/17 15:24 History Source: Patient Exam Limitations: Intoxication - History of Present Illness Initial Comments: The patient is a 62 year old male, well known to this ED, with a significant past medical history of hypertension, mesothelioma, and ETOH abuse, who was BIB EMS [place] Patient picked up from street and brought in stable, but intoxicated by EMS. Patient has no complaints. Allergies: NKDA Social History: ETOH abuse. Non smoker. No recreational drug use. Past History - Past Medical History Allergies/Adverse Reactions: Allergies Allergy/AdvReac Type Severity Reaction Status Date / Time Fish Containing Products Allergy Mild Swelling Verified 09/22/17 15:27 No Known Drug Allergies Allergy Verified 09/22/17 15:27 Home Medications: Ambulatory Orders NK [No Known Home Medication] 07/27/17 Anemia: No Asthma: No Cancer: Yes (mesothelioma) Cardiac Disorders: No CVA: No COPD: No CHF: No DVT: No Dementia: No Diabetes: No GI Disorders: No Disorders: No HTN: Yes Hypercholesterolemia: No Kidney Stones: No Liver Disease: No Psychiatric Problems: Yes (alcoholism) Seizures: No Thyroid Disease: No - Surgical History Abdominal Surgery: No Appendectomy: No Cardiac Surgery: No Cholecystectomy: No Lung Surgery: No Neurologic Surgery: No Orthopedic Surgery: No - Family Disease History Family Disease History: CA: Mother - Reproductive History Testicular Surgery: No - Immunization History TDAP Vaccination: Yes Immunization Up to Date: Yes - Suicide/Smoking/Psychosocial Hx Smoking Status: No Smoking History: Unknown if ever smoked Have you smoked in the past 12 months: No Number of Cigarettes Smoked Daily: 0 If you are a former smoker, when did you quit?: 0 Cigars Per Day: 0 Information on smoking cessation initiated: No 'Breaking Loose' booklet given: 09/22/17 Hx Alcohol Use: No Drug/Substance Use Hx: No Substance Use Type: Alcohol Hx Substance Use Treatment: Yes Review of Systems - Review of Systems Able to Perform ROS?: Yes (patient intoxicated.) Constitutional: No: Symptoms Reported HEENTM: No: Symptoms Reported Respiratory: No: Symptoms reported Cardiac (ROS): No: Symptoms Reported ABD/GI: No: Symptoms Reported *Physical Exam - Vital Signs Last Vital Signs Temp Pulse Resp BP Pulse Ox 97.9 F 86 18 108/68 98 09/22/17 15:24 09/22/17 15:24 09/22/17 15:24 09/22/17 15:24 09/22/17 15:24 - Physical Exam Comments: patient is intoxicated. GENERAL: The patient is awake and intoxicated. He is disheveled. HEAD: Normal with no signs of trauma. EYES: Pupils equal, round and reactive to light, extraocular movements intact, sclera anicteric, conjunctiva clear. EXTREMITIES: Normal range of motion, no edema. NEUROLOGICAL: Slurred speech and unsteady gait. SKIN: Warm, Dry, normal turgor, no rashes or lesions noted. General Appearance: Yes: Nourished, Disheveled Medical Decision Making - Medical Decision Making A/P: 62 y/o male with alcohol intoxication. Will wait for him to sober up and discharge to home. *DC/Admit/Observation/Transfer Diagnosis at time of Disposition: Intoxication - Referrals - Patient Instructions - Post Discharge Activity
--- NOTE | 2017-09-22 22:02 | PDOC ---
*Physical Exam - Vital Signs Last Vital Signs Temp Pulse Resp BP Pulse Ox 97.9 F 86 18 108/68 98 09/22/17 15:24 09/22/17 15:24 09/22/17 15:24 09/22/17 15:24 09/22/17 15:24 Medical Decision Making - Medical Decision Making 09/22/17 22:02 agree with care from APPLE Bucio *DC/Admit/Observation/Transfer Diagnosis at time of Disposition: Intoxication - Referrals - Patient Instructions - Post Discharge Activity
== END | disposition home or self-care (01) ==
LOC: JER 15:17
DX: F10.120 Alcohol abuse with intoxication, uncomplicated (principal); I10 Essential (primary) hypertension; C45.9 Mesothelioma, unspecified
CPT/HCPCS: 99281-25

== ENCOUNTER 2017-09-24 22:37 | Emergency (ER) | payer OTHER ==
[2017-09-24 22:47] VITALS: BP 132/80; PULSE 78; TEMP 98.2; BMI 42.5
--- NOTE | 2017-09-25 01:33 | PDOC ---
History of Present Illness - General Chief Complaint: Alcohol intoxication Stated Complaint: ALCOHOL INTOXICATION Time Seen by Provider: 09/24/17 23:05 History Source: Patient - History of Present Illness Initial Comments: 09/25/17 01:33 62 year old male with history of alcoholism with reports drinking a " pint of vodka" . denies falls or injury. frequent visits to the ER for similar complaints. PMHX as reported. Past History - Past Medical History Allergies/Adverse Reactions: Allergies Allergy/AdvReac Type Severity Reaction Status Date / Time Fish Containing Products Allergy Mild Swelling Verified 09/22/17 15:27 No Known Drug Allergies Allergy Verified 09/22/17 15:27 Home Medications: Ambulatory Orders NK [No Known Home Medication] 07/27/17 Anemia: No Asthma: No Cancer: Yes (mesothelioma) Cardiac Disorders: No CVA: No COPD: No CHF: No DVT: No Dementia: No Diabetes: No GI Disorders: No Disorders: No HTN: Yes Hypercholesterolemia: No Kidney Stones: No Liver Disease: No Psychiatric Problems: Yes (alcoholism) Seizures: No Thyroid Disease: No - Surgical History Abdominal Surgery: No Appendectomy: No Cardiac Surgery: No Cholecystectomy: No Lung Surgery: No Neurologic Surgery: No Orthopedic Surgery: No - Family Disease History Family Disease History: CA: Mother - Reproductive History Testicular Surgery: No - Immunization History TDAP Vaccination: Yes Immunization Up to Date: Yes - Suicide/Smoking/Psychosocial Hx Smoking Status: No Smoking History: Unknown if ever smoked Have you smoked in the past 12 months: No Number of Cigarettes Smoked Daily: 0 If you are a former smoker, when did you quit?: 0 Cigars Per Day: 0 'Breaking Loose' booklet given: 09/22/17 Hx Alcohol Use: Yes (everyday) Drug/Substance Use Hx: No Substance Use Type: Alcohol Hx Substance Use Treatment: Yes Review of Systems - Review of Systems Able to Perform ROS?: Yes Is the patient limited Ukrainian proficient: No Constitutional: Yes: Other (normocephalic no evidence of trauma. ) Respiratory: No: Symptoms reported, See HPI, Cough, Orthopnea, Shortness of Breath, SOB with Exertion, SOB at Rest, Stridor, Wheezing, Productive cough, Hemoptysis, Other *Physical Exam - Vital Signs Last Vital Signs Temp Pulse Resp BP Pulse Ox 98.2 F 78 20 132/80 97 09/24/17 22:45 09/24/17 22:45 09/24/17 22:45 09/24/17 22:45 09/24/17 22:45 - Physical Exam General Appearance: Yes: Disheveled, Alcohol on Breath, Intoxicated HEENT: positive: Other (normocephalic) Respiratory/Chest: positive: Lungs Clear, Normal Breath Sounds Cardiovascular: positive: Regular Rhythm, Regular Rate Extremity: positive: Normal Inspection Integumentary: positive: Ecchymosis (right thumb nail. moving finger without difficulty.) Neurologic: positive: Fully Oriented, Alert, Normal Mood/Affect Medical Decision Making - Medical Decision Making 09/25/17 03:05 A: alcohol intoxication P: sobriety albuterol prn *DC/Admit/Observation/Transfer Diagnosis at time of Disposition: Alcohol intoxication - Referrals Referrals: Garima Bridges MD [Primary Care Provider] - - Patient Instructions Printed Discharge Instructions: DI for Alcohol Abuse - Post Discharge Activity
--- NOTE | 2017-09-25 09:48 | PDOC ---
*Physical Exam - Vital Signs Last Vital Signs Temp Pulse Resp BP Pulse Ox 98.2 F 78 20 132/80 97 09/24/17 22:45 09/24/17 22:45 09/24/17 22:45 09/24/17 22:45 09/24/17 22:45 - Physical Exam General Appearance: Yes: Appropriately Dressed. No: Apparent Distress HEENT: positive: Normal Voice Neck: positive: Supple Respiratory/Chest: positive: Lungs Clear, Normal Breath Sounds. negative: Respiratory Distress Cardiovascular: positive: Regular Rate, S1, S2 Integumentary: positive: Dry, Warm Neurologic: positive: Alert, Normal Mood/Affect Medical Decision Making - Medical Decision Making 09/25/17 09:45 52-year-old male w/ multiple comorbidities including alcohol abuse with numerous ED visits for sobriety here with acute alcohol intoxication after admitting to drinking a pint of vodka. Pending sobriety in ER, watch for withdrawal 09/25/17 09:46 On reassessment, patient currently sitting in wheelchair watching TV in vertical area. Appears alert in no apparent distress and w/ no tremors. Discharge pending 09/25/17 09:47 As per ER staff, patient walked out of ER. Had no IV in place *DC/Admit/Observation/Transfer Diagnosis at time of Disposition: Alcohol intoxication - Discharge Dispostion Disposition: ELOPED - Referrals Referrals: Garima Bridges MD [Primary Care Provider] - - Patient Instructions Printed Discharge Instructions: DI for Alcohol Abuse - Post Discharge Activity
== END 2017-09-25 09:00 | disposition left against medical advice (07) ==
LOC: JER 22:37
DX: F10.220 Alcohol dependence with intoxication, uncomplicated (principal); I10 Essential (primary) hypertension; C45.9 Mesothelioma, unspecified; Z59.0 Homelessness
CPT/HCPCS: 99283-25

== ENCOUNTER → 2017-09-24 | Emergency (ER) | payer OTHER ==
[2017-09-24 16:07] VITALS: BP 111/67; PULSE 95; TEMP 97.6; BMI 46.0
--- NOTE | 2017-09-24 18:47 | PDOC ---
History of Present Illness - General Chief Complaint: Alcohol intoxication Stated Complaint: INTOX/back pain Time Seen by Provider: 09/24/17 16:22 - History of Present Illness Initial Comments: 09/24/17 18:47 Patient is a 62-year-old male brought in by ambulance for alcohol intoxication today. Patient is well-known to the emergency department. [place] Patient states he did not drink today however there is alcohol on the breath. Denies any acute trauma or falls. Admits to lower back pain. Denies weakness in the legs, numbness and tingling, bladder or bowel incontinence, saddle anesthesia. Past History - Travel Traveled outside of the country in the last 30 days: No Close contact w/someone who was outside of country & ill: No - Past Medical History Allergies/Adverse Reactions: Allergies Allergy/AdvReac Type Severity Reaction Status Date / Time Fish Containing Products Allergy Mild Swelling Verified 09/22/17 15:27 No Known Drug Allergies Allergy Verified 09/22/17 15:27 Home Medications: Ambulatory Orders NK [No Known Home Medication] 07/27/17 Anemia: No Asthma: No Cancer: Yes (mesothelioma) Cardiac Disorders: No CVA: No COPD: No CHF: No DVT: No Dementia: No Diabetes: No GI Disorders: No Disorders: No HTN: Yes Hypercholesterolemia: No Kidney Stones: No Liver Disease: No Psychiatric Problems: Yes (alcoholism) Seizures: No Thyroid Disease: No - Surgical History Abdominal Surgery: No Appendectomy: No Cardiac Surgery: No Cholecystectomy: No Lung Surgery: No Neurologic Surgery: No Orthopedic Surgery: No - Family Disease History Family Disease History: CA: Mother - Reproductive History Testicular Surgery: No - Immunization History TDAP Vaccination: Yes Immunization Up to Date: Yes - Suicide/Smoking/Psychosocial Hx Smoking Status: No Smoking History: Unknown if ever smoked Have you smoked in the past 12 months: No Number of Cigarettes Smoked Daily: 0 If you are a former smoker, when did you quit?: 0 Cigars Per Day: 0 Information on smoking cessation initiated: No 'Breaking Loose' booklet given: 09/22/17 Hx Alcohol Use: No Drug/Substance Use Hx: No Substance Use Type: Alcohol Hx Substance Use Treatment: Yes Review of Systems - Review of Systems Able to Perform ROS?: Yes Comments:: 09/24/17 18:43 CONSTITUTIONAL: Absent: fever, chills, diaphoresis, generalized weakness, malaise, loss of appetite HEENT: Absent: rhinorrhea, nasal congestion, throat pain, throat swelling, difficulty swallowing, mouth swelling, ear pain, eye pain, visual Changes CARDIOVASCULAR: Absent: chest pain, loss of consciousness, palpitations, irregular heart rate, peripheral edema RESPIRATORY: Absent: cough, shortness of breath, dyspnea with exertion, orthopnea, wheezing, stridor, hemoptysis GASTROINTESTINAL: Absent: abdominal pain, abdominal distension, nausea, vomiting, diarrhea, constipation, melena, hematochezia GENITOURINARY: Absent: dysuria, frequency, urgency, hesitancy, hematuria, flank pain, genital pain MUSCULOSKELETAL: Present: back pain Absent: myalgia, arthralgia, joint swelling SKIN: Absent: rash, itching, pallor HEMATOLOGIC/IMMUNOLOGIC: Absent: easy bleeding, easy bruising, lymphadenopathy, frequent infections ENDOCRINE: Absent: unexplained weight gain, unexplained weight loss, heat intolerance, cold intolerance NEUROLOGIC: Absent: headache, focal weakness or paresthesias, dizziness, unsteady gait, seizure, mental status changes, bladder or bowel incontinence PSYCHIATRIC: Absent: anxiety, depression, suicidal or homicidal ideation, hallucinations. Is the patient limited Latvian proficient: No *Physical Exam - Vital Signs Last Vital Signs Temp Pulse Resp BP Pulse Ox 97.6 F 95 H 18 111/67 96 09/24/17 16:00 09/24/17 16:00 09/24/17 16:00 09/24/17 16:00 09/24/17 16:00 - Physical Exam Comments: 09/24/17 18:43 GENERAL: Well developed, well nourished. Awake and alert. No acute distress. Alcohol on the breath. HEENT: Normocephalic, atraumatic. PERRLA, EOMI. No conjunctival pallor. Sclera are non- icteric. Moist mucous membranes. Oropharynx is clear. NECK: Supple. Full ROM. No JVD. Carotid pulses 2+ and symmetric, without bruits. No thyromegaly. No lymphadenopathy. CARDIOVASCULAR: Regular rate and rhythm. No murmurs, rubs, or gallops. Distal pulses are 2+ and symmetric. PULMONARY: No evidence of respiratory distress. Lungs clear to auscultation bilaterally. No wheezing, rales or rhonchi. ABDOMINAL: Soft. Non-tender. Non-distended. No rebound or guarding. No organomegaly. Normoactive bowel sounds. MUSCULOSKELETAL TTP of R lower paraspinous muscles with palpable knot. Normal range of motion at all joints. No bony deformities or tenderness. No CVA tenderness. EXTREMITIES: No cyanosis. No clubbing. No edema. No calf tenderness. SKIN: Warm and dry. Normal capillary refill. No rashes. No jaundice. NEUROLOGICAL: Alert, awake, appropriate. Cranial nerves 2-12 intact. No deficits to light touch and temperature in face, upper extremities and lower extremities. No motor deficits in the in face, upper extremities and lower extremities. Normoreflexic in the upper and lower extremities. Normal speech. Toes are down- going bilaterally. Gait is normal without ataxia. PSYCHIATRIC: Cooperative. Good eye contact. Appropriate mood and affect. Medical Decision Making - Medical Decision Making 09/24/17 18:47 Patient is a 62-year-old male brought in for alcohol intoxication today. Patient states he does not want any treatment for his back pain at this time. Patient eloped from the ER at 1730. *DC/Admit/Observation/Transfer Diagnosis at time of Disposition: Intoxication, Eloped - Discharge Dispostion Disposition: ELOPED - Referrals Referrals: Garima Bridges MD [Primary Care Provider] - - Patient Instructions - Post Discharge Activity
== END | disposition left against medical advice (07) ==
LOC: JER 15:58
DX: F10.220 Alcohol dependence with intoxication, uncomplicated (principal); I10 Essential (primary) hypertension; C45.9 Mesothelioma, unspecified; Z59.0 Homelessness
CPT/HCPCS: 99281-25

== ENCOUNTER 2017-09-29 17:45 | Emergency (ER) | payer OTHER ==
[2017-09-29 18:01] VITALS: BP 150/85; PULSE 85; TEMP 98; BMI 29.8
== END 2017-09-29 19:09 | disposition left against medical advice (07) ==
LOC: JER 17:45
DX: Z53.21 Procedure and treatment not carried out due to patient leaving prior to being seen by health care provider (principal)
CPT/HCPCS: 99281-25

== ENCOUNTER 2017-10-06 01:20 | Emergency (ER) | payer OTHER ==
--- NOTE | 2017-10-06 02:25 | PDOC ---
History of Present Illness - General Stated Complaint: BACK PAIN, ALCOHOL WITHDRAWAL Time Seen by Provider: 10/06/17 01:29 History Source: Patient - History of Present Illness Initial Comments: 10/06/17 02:53 History of Present Illness: 61-year-old male with PMH of mesothelioma with an extension hx of EtOH abuse with multiple ER visits and admissions due to EtOH abuse is biba for public intoxication. Patient at this time is noted to have AOB. Patient is not slurring his speech at this time but is unstable in gait and is intoxicated. Patient is A&Ox3 to deny f/c,n/v/d, constipation, lightheadedness, dizziness, guerra, blurry vision, visual disturbance, chest pain, sob, neck/back pain, abd pain , urinary symptoms; urgency/frequency/hesitancy, hematuria. Patient denies any sick contacts, travel outside the [place] or contact with any sick individuals who have been outside the [place]. Past Medical History: ETOH abuse, Mesothelioma Family History: Mother with cancer Social History: EtOH abuse Surgical history: Denies Allergies: No known drug allergies ROS: CONSTITUTIONAL: Absent: fever, chills, diaphoresis, generalized weakness, malaise, loss of appetite HEENT: Absent: rhinorrhea, nasal congestion, throat pain, throat swelling, difficulty swallowing, mouth swelling, ear pain, eye pain, visual Changes CARDIOVASCULAR: Absent: chest pain, loss of consciousness, palpitations, irregular heart rate, peripheral edema RESPIRATORY: Absent: cough, shortness of breath, dyspnea with exertion, orthopnea, wheezing, stridor, hemoptysis GASTROINTESTINAL: Absent: abdominal pain, abdominal distension, nausea, vomiting, diarrhea, constipation, melena, hematochezia GENITOURINARY: Absent: dysuria, frequency, urgency, hesitancy, hematuria, flank pain, genital pain MUSCULOSKELETAL: Absent: myalgia, arthralgia, joint swelling SKIN: Absent: rash, itching, pallor HEMATOLOGIC/IMMUNOLOGIC: Absent: easy bleeding, easy bruising, lymphadenopathy, frequent infections ENDOCRINE: Absent: unexplained weight gain, unexplained weight loss, heat intolerance, cold intolerance NEUROLOGIC: Absent: headache, focal weakness or paresthesias, dizziness, unsteady gait, seizure, mental status changes, bladder or bowel incontinence PSYCHIATRIC: Absent:+EtOH abuse, No depression or anxiety.anxiety, depression, suicidal or homicidal ideation, hallucinations. GENERAL: Well developed, well nourished. Awake and alert. No acute distress. HEENT: Normocephalic, atraumatic. PERRLA, EOMI. No conjunctival pallor. Sclera are non- icteric. Moist mucous membranes. Oropharynx is clear. NECK: Supple. Full ROM. No JVD. Carotid pulses 2+ and symmetric, without bruits. No thyromegaly. No lymphadenopathy. CARDIOVASCULAR: Regular rate and rhythm. No murmurs, rubs, or gallops. Distal pulses are 2+ and symmetric. PULMONARY: No evidence of respiratory distress. Lungs clear to auscultation bilaterally. No wheezing, rales or rhonchi. ABDOMINAL: Soft. Non-tender. Non-distended. No rebound or guarding. No organomegaly. Normoactive bowel sounds. MUSCULOSKELETAL Normal range of motion at all joints. No bony deformities or tenderness. No CVA tenderness. EXTREMITIES: No cyanosis. No clubbing. No edema. No calf tenderness. SKIN: Warm and dry. Normal capillary refill. No rashes. No jaundice. NEUROLOGICAL: Alert, awake, appropriate. Cranial nerves 2-12 intact. No deficits to light touch and temperature in face, upper extremities and lower extremities. No motor deficits in the in face, upper extremities and lower extremities. Normoreflexic in the upper and lower extremities. Normal speech. Toes are down- going bilaterally. Gait is normal without ataxia. PSYCHIATRIC: Cooperative. Good eye contact. Appropriate mood and affect. Medical Decision Making Patient reassessment: Patient has been noted to be walking and emergency department without difficulty or ataxic gait. Patient is able to communicate clearly and has straight clear mentation. I will discharge this patient to follow-up with outpatient PCP. Patient does not indicate desire at this time for detox. I discussed the physical exam findings, ancillary test results and final diagnoses with the patient. I answered all of the patient's questions. The patient was satisfied with the care received and felt comfortable with the discharge plan and treatment plan. The patient will call their primary care physician within 24 hours to arrange follow-up and will return to the Emergency Department with any new, persistent or worsening symptoms. Printed Discharge Instructions: DI for Alcohol Abuse Additional Instructions: Please follow-up with the included referral for PCP. Return to emergency room if shortness of breath, wheezing, fever greater than 101, chest pain, or fainting occurs. Past History - Past Medical History Allergies/Adverse Reactions: Allergies Allergy/AdvReac Type Severity Reaction Status Date / Time Fish Containing Products Allergy Mild Swelling Verified 09/29/17 17:56 No Known Drug Allergies Allergy Verified 09/29/17 17:56 Home Medications: Ambulatory Orders NK [No Known Home Medication] 07/27/17 Anemia: No Asthma: No Cancer: Yes (mesothelioma) Cardiac Disorders: No CVA: No COPD: No CHF: No DVT: No Dementia: No Diabetes: No GI Disorders: No Disorders: No HTN: Yes Hypercholesterolemia: No Kidney Stones: No Liver Disease: No Psychiatric Problems: Yes (alcoholism) Seizures: No Thyroid Disease: No - Surgical History Abdominal Surgery: No Appendectomy: No Cardiac Surgery: No Cholecystectomy: No Lung Surgery: No Neurologic Surgery: No Orthopedic Surgery: No - Family Disease History Family Disease History: CA: Mother - Reproductive History Testicular Surgery: No - Immunization History TDAP Vaccination: Yes Immunization Up to Date: Yes - Suicide/Smoking/Psychosocial Hx Smoking Status: No Smoking History: Unknown if ever smoked Have you smoked in the past 12 months: No Number of Cigarettes Smoked Daily: 0 If you are a former smoker, when did you quit?: 0 Cigars Per Day: 0 'Breaking Loose' booklet given: 09/22/17 Hx Alcohol Use: No Drug/Substance Use Hx: No Substance Use Type: Alcohol Hx Substance Use Treatment: Yes *DC/Admit/Observation/Transfer Diagnosis at time of Disposition: Intoxication - Discharge Dispostion Condition at time of disposition: Stable Admit: No - Referrals - Patient Instructions Printed Discharge Instructions: DI for Alcohol Abuse Additional Instructions: Return to the ER for any concerns - Post Discharge Activity
== END 2017-10-06 06:26 | disposition home or self-care (01) ==
LOC: JER 01:20
DX: F10.220 Alcohol dependence with intoxication, uncomplicated (principal); I10 Essential (primary) hypertension; Z59.0 Homelessness
CPT/HCPCS: 99281-25

== ENCOUNTER 2017-10-09 20:58 | Emergency (ER) | payer OTHER ==
--- NOTE | 2017-10-09 21:23 | PDOC ---
Rapid Medical Evaluation Time Seen by Provider: 10/09/17 21:22 Medical Evaluation: Allergies Allergy/AdvReac Type Severity Reaction Status Date / Time Fish Containing Products Allergy Mild Swelling Verified 09/29/17 17:56 No Known Drug Allergies Allergy Verified 09/29/17 17:56 10/09/17 21:22 I have performed a brief in-person evaluation of this patient. The patient presents with a chief complaint of: low back pain, intoxicated, last drink this am Pertinent physical exam findings: intoxicated I have ordered the following: nothing The patient will proceed to the ED for further evaluation. Discharge Disposition - Diagnosis Intoxication, Back pain - Referrals - Patient Instructions - Post Discharge Activity
[2017-10-09 21:32] VITALS: BP 114/70; PULSE 91; TEMP 97.9; BMI 31.5
--- NOTE | 2017-10-10 01:28 | PDOC ---
Attending Attestation - HPI HPI: 10/10/17 02:14 Patient is a 62 year old male with a significant past medical history of alcohol dependence who presents to the ED with intoxication. Patient is well known to the ED and current complaints of back pain which is chronic. Patient currently does not have any complaints of pain while here in the ED. Denies nausea, vomiting. Denies chest pain, sob. Denies contact with sick individuals, out of state travelling. Denies any other symptoms Allergies: Fish containing products. Social history: alcohol dependence, No smoking. No illicit drugs. Surgical history: PMD: None <Kamari Flores - Last Filed: 10/10/17 02:14> - Resident Resident Name: Smith Dunbar - ED Attending Attestation I have performed the following: I have examined & evaluated the patient, The case was reviewed & discussed with the resident, I agree w/resident's findings & plan, Exceptions are as noted - Physicial Exam PE: GENERAL: Asleep, awakens to voice. In no acute distress. +AOB. HEAD: No signs of trauma EYES: PERRLA, EOMI, sclera anicteric, conjunctiva clear ENT: Auricles normal inspection, hearing grossly normal, nares patent, oropharynx clear without exudates. Moist mucosa NECK: Normal ROM, supple, no lymphadenopathy, JVD, or masses LUNGS: Breath sounds equal, clear to auscultation bilaterally. No wheezes, and no crackles HEART: Regular rate and rhythm, normal S1 and S2, no murmurs, rubs or gallops ABDOMEN: Soft, nontender, normoactive bowel sounds. No guarding, no rebound. No masses EXTREMITIES: Normal range of motion, no edema. No clubbing or cyanosis. No cords, erythema, or tenderness NEUROLOGICAL: Cranial nerves II through XII grossly intact. Slurred speech. Motor and sensation grossly intact. SKIN: Warm, Dry, normal turgor, no rashes or lesions noted. - Medical Decision Making Pt well known to this ED, presents with intoxication. No signs of trauma. Metabolize to freedom, DC when clinically sober. <Fabiana Woodard - Last Filed: 10/10/17 06:24>
--- NOTE | 2017-10-10 03:14 | PDOC ---
History of Present Illness - General Chief Complaint: Chronic pain Stated Complaint: Alcohol intoxication Time Seen by Provider: 10/09/17 21:22 - History of Present Illness Initial Comments: 10/10/17 03:10 The patient is a 62 year old male with a history of chronic back pain and alcoholism well known to our ER who presents for evaluation of intox and chronic back pain. The patient reports consuming alcohol today and is complaining of chronic lower back pain. The patient otherwise denies fevers, chills, SOB, chest pain, nausea, vomiting, abdominal pain, or changes with urination or bowel movements. Past History - Past Medical History Allergies/Adverse Reactions: Allergies Allergy/AdvReac Type Severity Reaction Status Date / Time Fish Containing Products Allergy Mild Swelling Verified 10/09/17 21:27 No Known Drug Allergies Allergy Verified 10/09/17 21:27 Home Medications: Ambulatory Orders NK [No Known Home Medication] 07/27/17 Anemia: No Asthma: No Cancer: Yes (mesothelioma) Cardiac Disorders: No CVA: No COPD: No CHF: No DVT: No Dementia: No Diabetes: No GI Disorders: No Disorders: No HTN: Yes Hypercholesterolemia: No Kidney Stones: No Liver Disease: No Psychiatric Problems: Yes (alcoholism) Seizures: No Thyroid Disease: No - Surgical History Abdominal Surgery: No Appendectomy: No Cardiac Surgery: No Cholecystectomy: No Lung Surgery: No Neurologic Surgery: No Orthopedic Surgery: No - Family Disease History Family Disease History: CA: Mother - Reproductive History Testicular Surgery: No - Immunization History TDAP Vaccination: Yes Immunization Up to Date: Yes - Suicide/Smoking/Psychosocial Hx Smoking Status: No Smoking History: Unknown if ever smoked Have you smoked in the past 12 months: No Number of Cigarettes Smoked Daily: 0 If you are a former smoker, when did you quit?: 0 Cigars Per Day: 0 Information on smoking cessation initiated: No 'Breaking Loose' booklet given: 09/22/17 Hx Alcohol Use: Yes (Daily) Drug/Substance Use Hx: No Substance Use Type: Alcohol Hx Substance Use Treatment: Yes Review of Systems - Review of Systems Comments:: 10/10/17 03:12 Constitutional: No fevers, chills, fatigue, malaise HEENT: No Rhinorrhea, nasal congestion, visual changes Cardiovascular: No chest pain, syncope, palpitations, lightheadedness Respiratory: No Cough, SOB, Hemoptysis, Gastrointestinal: No Abdominal pain, Nausea, Vomiting, Constipation, Diarrhea, Melena Genitourinary: No Dysuria, Frequency, Urgency, Hesitancy, Hematuria, Flank pain Musculoskeletal: Lower back pain. No Myalgia, arthralgia Skin: No rashes, itching, bruising, pallor Neurologic: No Headache, Dizziness, Numbness, Weakness, or Tingling Psychiatric: No Hallucinations. No SI or HI *Physical Exam - Vital Signs Last Vital Signs Temp Pulse Resp BP Pulse Ox 97.9 F 91 H 20 114/70 95 10/09/17 21:28 10/09/17 21:28 10/09/17 21:28 10/09/17 21:28 10/09/17 21:28 - Physical Exam Comments: 10/10/17 03:12 General Appearance: Nourished. Intoxicated. Alcohol on breath. No Apparent Distress HEENT: EOMI, DOUGLAS. No Pharyngeal Erythema, Tonsillar Exudate, Tonsillar Erythema Neck: No Cervical Lymphadenopathy Respiratory/Chest: Lungs Clear, Normal Breath Sounds. No Crackles, Rales, Rhonchi, Wheezing Cardiovascular: Regular Rhythm, Regular Rate. No Murmur, Gallops, Rubs Gastrointestinal/Abdominal: Normal Bowel Sounds, Soft. No Guarding, Rebound, Tenderness Musculoskeletal: No CVA Tenderness Extremity: Normal Capillary Refill Integumentary: Normal Color, Dry, Warm Neurologic: Fully Oriented, Alert, Normal Mood/Affect, Normal Response, Medical Decision Making - Medical Decision Making 10/10/17 03:13 The patient is a 62 year old male with a history of chronic back pain and alcoholism well known to our ER who presents for evaluation of intox and chronic back pain. Given the patient's history, it is likely the patient's current symptoms are due to alcohol intoxication. The patient does not have any acute complaints at this time. We will continue to monitor and reassess for sobriety while here in the ED. 10/10/17 06:58 Patient ambulating without difficulty requesting discharge. We are comfortable discharging the patient home at this time. We discussed the plan and return precautions with the patient who voiced understanding and is agreeable. *DC/Admit/Observation/Transfer Diagnosis at time of Disposition: Intoxication Back pain Qualifiers: Back pain location: back pain in unspecified location Chronicity: unspecified Back pain laterality: unspecified Qualified Code(s): M54.9 - Dorsalgia, unspecified - Discharge Dispostion Disposition: HOME Condition at time of disposition: Good Admit: No - Referrals - Patient Instructions Printed Discharge Instructions: DI for Alcohol Abuse Additional Instructions: Please return to the ER if you experience concerning or worsening symptoms including worsening pain, difficulty breathing, or vomiting. Your symptoms are likely due to alcohol use and we recommend that you limit your consumption of alcohol. Please also call to schedule a follow up appointment with your primary care provider within 2-3 days to discuss your ER visit and further management of your condition. - Post Discharge Activity
[2017-10-10] MEDS ORDERED: chlordiazePOXIDE HCL 25 MG CAPSULE PO ONE (06:58)
[2017-10-10] MEDS ORDERED: chlordiazePOXIDE HCL 25 MG CAPSULE ONE (06:59)
== END 2017-10-10 07:18 | disposition home or self-care (01) ==
LOC: JER 20:58
DX: F10.220 Alcohol dependence with intoxication, uncomplicated (principal); I10 Essential (primary) hypertension; C45.9 Mesothelioma, unspecified; M54.89 Other dorsalgia; G89.29 Other chronic pain; Z59.0 Homelessness
CPT/HCPCS: 99283-25

== ENCOUNTER 2017-10-12 17:23 | Emergency (ER) | payer OTHER ==
[2017-10-12 17:31] VITALS: BP 123/85; PULSE 87; TEMP 97; BMI 33.0
--- NOTE | 2017-10-12 18:25 | PDOC ---
History of Present Illness - General History Source: Patient Exam Limitations: No Limitations - History of Present Illness Initial Comments: 10/12/17 18:27 The patient is a 62 year old male, well known to the ED for recurrent visits for alcohol intoxication, brought in by EMS for alcohol intoxication today. Patient was found lying down outdoors. He denies any physical complaints on evaluation. <Zo Mtz - Last Filed: 10/12/17 18:27> <Fernie Rosenthal - Last Filed: 10/12/17 19:40> - General Chief Complaint: Alcohol intoxication Stated Complaint: INTOX/back pain Time Seen by Provider: 10/12/17 17:36 Past History <Zo Mtz - Last Filed: 10/12/17 18:27> - Past Medical History Anemia: No Asthma: No Cancer: Yes (mesothelioma) Cardiac Disorders: No CVA: No COPD: No CHF: No DVT: No Dementia: No Diabetes: No GI Disorders: No Disorders: No HTN: Yes Hypercholesterolemia: No Kidney Stones: No Liver Disease: No Psychiatric Problems: Yes (alcoholism) Seizures: No Thyroid Disease: No - Surgical History Abdominal Surgery: No Appendectomy: No Cardiac Surgery: No Cholecystectomy: No Lung Surgery: No Neurologic Surgery: No Orthopedic Surgery: No - Family Disease History Family Disease History: CA: Mother - Reproductive History Testicular Surgery: No - Immunization History TDAP Vaccination: Yes Immunization Up to Date: Yes - Suicide/Smoking/Psychosocial Hx Smoking Status: No Smoking History: Never smoked Have you smoked in the past 12 months: No Number of Cigarettes Smoked Daily: 0 If you are a former smoker, when did you quit?: 0 Cigars Per Day: 0 Information on smoking cessation initiated: No 'Breaking Loose' booklet given: 09/22/17 Hx Alcohol Use: No Drug/Substance Use Hx: No Substance Use Type: None Hx Substance Use Treatment: Yes <Fernie Rosenthal - Last Filed: 10/12/17 19:40> - Past Medical History Allergies/Adverse Reactions: Allergies Allergy/AdvReac Type Severity Reaction Status Date / Time Fish Containing Products Allergy Mild Swelling Verified 10/12/17 17:31 No Known Drug Allergies Allergy Verified 10/12/17 17:31 Home Medications: Ambulatory Orders NK [No Known Home Medication] 07/27/17 Review of Systems - Review of Systems All Other Systems: Reviewed and Negative <Zo Mtz - Last Filed: 10/12/17 18:27> *Physical Exam - Vital Signs Last Vital Signs Temp Pulse Resp BP Pulse Ox 97 F L 87 18 123/85 95 10/12/17 17:29 10/12/17 17:29 10/12/17 17:29 10/12/17 17:29 10/12/17 17:29 - Physical Exam Comments: 10/12/17 18:27 GENERAL: Awake. Clinically intoxicated. Disheveled. HEAD: No signs of trauma EYES: PERRLA, EOMI, sclera anicteric, conjunctiva clear ENT: Auricles normal inspection, hearing grossly normal, nares patent, oropharynx clear without exudates. Moist mucosa NECK: Normal ROM, supple, no lymphadenopathy, JVD, or masses LUNGS: Breath sounds equal, clear to auscultation bilaterally. No wheezes, and no crackles HEART: Regular rate and rhythm, normal S1 and S2, no murmurs, rubs or gallops ABDOMEN: Soft, nontender, normoactive bowel sounds. No guarding, no rebound. No masses EXTREMITIES: Normal range of motion, no edema. No clubbing or cyanosis. No cords, erythema, or tenderness BACK: No midline spinal tenderness in cervical/thoracic/lumbar region NEUROLOGICAL: Slurred speech. Cranial nerves intact. Gait deferred. SKIN: Warm, Dry, normal turgor, no rashes or lesions noted. <Zo Mtz - Last Filed: 10/12/17 18:27> - Vital Signs Last Vital Signs Temp Pulse Resp BP Pulse Ox 97 F L 87 18 123/85 95 10/12/17 17:29 10/12/17 17:29 10/12/17 17:29 10/12/17 17:29 10/12/17 17:29 <Fernie Rosenthal - Last Filed: 10/12/17 19:40> Medical Decision Making - Medical Decision Making 10/12/17 19:36 62-year-old male well-known to this emergency department for presentations for alcohol intoxication presents emergency Department with alcohol intoxication. At this time, patient appears clinically sober and is ambulating in the ED with a steady gait. He is well-appearing and tolerating by mouth. Patient requests discharge. I discussed the physical exam findings, ancillary test results and final diagnoses with the patient. I answered all of the patient's questions. The patient was satisfied with the care received and felt comfortable with the discharge plan and treatment plan. The patient will call their primary care physician within 24 hours to arrange follow-up and will return to the Emergency Department with any new, persistent or worsening symptoms. <Fernie Rosenthal - Last Filed: 10/12/17 19:40> *DC/Admit/Observation/Transfer - Attestations Scribe Attestion: 10/12/17 18:28 Documentation prepared by Zo Mtz, acting as medical claims processor for Fernie Rosenthal MD <Zo Mtz - Last Filed: 10/12/17 18:27> - Attestations Physician Attestion: 10/12/17 19:40 I, Dr. Fernie Rosenthal MD, attest that this document has been prepared under my direction and personally reviewed by me in its entirety. I further attest, that it accurately reflects all work, treatment, procedures and medical decision -making performed by me. <Fernie Rosenthal - Last Filed: 10/12/17 19:40> Diagnosis at time of Disposition: Intoxication - Discharge Dispostion Disposition: HOME Condition at time of disposition: Stable - Patient Instructions Printed Discharge Instructions: DI for Alcohol Abuse Additional Instructions: Follow-up with her primary care doctor within 24 hours. Return to the emergency department if you have any new, worsening or concerning symptoms.
== END 2017-10-12 19:45 | disposition home or self-care (01) ==
LOC: JER 17:23
DX: F10.220 Alcohol dependence with intoxication, uncomplicated (principal); I10 Essential (primary) hypertension; C45.9 Mesothelioma, unspecified; Z59.0 Homelessness
CPT/HCPCS: 99281-25

== ENCOUNTER 2017-10-15 12:55 | Emergency (ER) | payer OTHER ==
[2017-10-15 13:11] VITALS: BMI 35.9
[2017-10-15] MEDS ORDERED: FOLIC ACID INJECTION - 1 MG, THIAMINE HCL 100 MG, MULTIVIT INJECTION ADULT 10 ML in SOD... IVPB ONE (14:43)
--- NOTE | 2017-10-15 19:11 | PDOC ---
History of Present Illness - General Chief Complaint: Alcohol intoxication Stated Complaint: REVISIT History Source: Patient Exam Limitations: No Limitations - History of Present Illness Initial Comments: 10/15/17 19:06 62 yo male etoh abuse seen several times by myself here today intoxicated with c /o elbow pain. states he scraped his elbow. denies other trauma. is difficulty historian and not providing any additional history. does report etoh today. Past History - Past Medical History Allergies/Adverse Reactions: Allergies Allergy/AdvReac Type Severity Reaction Status Date / Time Fish Containing Products Allergy Mild Swelling Verified 10/12/17 17:31 No Known Drug Allergies Allergy Verified 10/12/17 17:31 Home Medications: Ambulatory Orders NK [No Known Home Medication] 07/27/17 Anemia: No Asthma: No Cancer: Yes (mesothelioma) Cardiac Disorders: No CVA: No COPD: No CHF: No DVT: No Dementia: No Diabetes: No GI Disorders: No Disorders: No HTN: Yes Hypercholesterolemia: No Kidney Stones: No Liver Disease: No Psychiatric Problems: Yes (alcoholism) Seizures: No Thyroid Disease: No - Surgical History Abdominal Surgery: No Appendectomy: No Cardiac Surgery: No Cholecystectomy: No Lung Surgery: No Neurologic Surgery: No Orthopedic Surgery: No - Family Disease History Family Disease History: CA: Mother - Reproductive History Testicular Surgery: No - Immunization History TDAP Vaccination: Yes Immunization Up to Date: Yes - Suicide/Smoking/Psychosocial Hx Smoking Status: No Smoking History: Never smoked Have you smoked in the past 12 months: No Number of Cigarettes Smoked Daily: 0 If you are a former smoker, when did you quit?: 0 Cigars Per Day: 0 Information on smoking cessation initiated: No 'Breaking Loose' booklet given: 09/22/17 Hx Alcohol Use: Yes Drug/Substance Use Hx: No Substance Use Type: Alcohol Hx Substance Use Treatment: Yes Review of Systems - Review of Systems Constitutional: No: Chills, Diaphoresis HEENTM: No: Blurred Vision Respiratory: No: Cough, Orthopnea Cardiac (ROS): No: Chest Pain, Edema Musculoskeletal: Yes: Joint Pain. No: Back Pain, Gout Integumentary: Yes: Other (abrasion elbow) All Other Systems: Reviewed and Negative *Physical Exam - Vital Signs Last Vital Signs Temp Pulse Resp BP Pulse Ox 98.4 F 106 H 20 96/64 92 L 10/15/17 13:07 10/15/17 13:07 10/15/17 13:07 10/15/17 13:07 10/15/17 13:07 - Physical Exam General Appearance: Yes: Nourished Neck: positive: Trachea midline Respiratory/Chest: positive: Lungs Clear, Normal Breath Sounds Cardiovascular: positive: Regular Rhythm, Regular Rate, S1, S2 Gastrointestinal/Abdominal: positive: Normal Bowel Sounds Extremity: positive: Normal Capillary Refill, Normal Inspection, Normal Range of Motion, Other (abrasio superficial left elbow. FROM>) Integumentary: positive: Other Medical Decision Making - Medical Decision Making 10/15/17 19:12 pt with intoxication. will reassess when sober. due to heat and dry mucous membranes on exam. will treat with bananbag reassess when sober. *DC/Admit/Observation/Transfer Diagnosis at time of Disposition: Intoxication - Referrals - Patient Instructions - Post Discharge Activity
--- NOTE | 2017-10-16 00:21 | PDOC ---
*Physical Exam - Vital Signs Last Vital Signs Temp Pulse Resp BP Pulse Ox 98.4 F 106 H 20 96/64 92 L 10/15/17 13:07 10/15/17 13:07 10/15/17 13:07 10/15/17 13:07 10/15/17 13:07 ED Treatment Course - Medications Given in the ED: ED Medications Discontinued Medications Generic Name Dose Route Start Last Admin Trade Name Freq PRN Reason Stop Dose Admin Folic Acid 1 mg/ Thiamine HCl 1,000 mls @ 125 mls/hr 10/15/17 14:43 10/15/17 16:00 100 mg/ Multivitamins/Minerals IVPB 10/15/17 22:42 125 mls/hr 10 ml/ Sodium Chloride ONCE ONE Administration *DC/Admit/Observation/Transfer Diagnosis at time of Disposition: Intoxication - Discharge Dispostion Disposition: HOME Condition at time of disposition: Stable Admit: No - Referrals - Patient Instructions Printed Discharge Instructions: DI for Alcohol Abuse - Post Discharge Activity
[2017-10-16] MEDS ORDERED: chlordiazePOXIDE HCL 25 MG CAPSULE PO ONE (03:26)
[2017-10-16 03:46] VITALS: BP 172/116; PULSE 95; TEMP 98.1
--- NOTE | 2017-10-16 09:30 | EKG ---
Test Reason : Blood Pressure : / mmHG Vent. Rate : 095 BPM Atrial Rate : 095 BPM P-R Int : 158 ms QRS Dur : 098 ms QT Int : 378 ms P-R-T Axes : 034 -39 057 degrees QTc Int : 475 ms NORMAL SINUS RHYTHM LEFT AXIS DEVIATION ABNORMAL ECG WHEN COMPARED WITH ECG OF 28-AUG-2017 08:24, ABERRANT CONDUCTION IS NO LONGER PRESENT Confirmed by RAY VENEGAS MD ([id number]) on 10/16/2017 9:30:23 AM Referred By: Confirmed By:RAY VENEGAS MD
== END 2017-10-16 06:22 | disposition home or self-care (01) ==
LOC: JER 12:55
PROC: 3E033GC Introduction of Other Therapeutic Substance into Peripheral Vein, Percutaneous Approach (ICD-10-PCS; principal; 2017-10-15)
DX: F10.120 Alcohol abuse with intoxication, uncomplicated (principal); C45.9 Mesothelioma, unspecified
CPT/HCPCS: 93005; 93010; 99283-25; J7030

== ENCOUNTER 2017-10-17 12:45 | Emergency (ER) | payer OTHER ==
--- NOTE | 2017-10-17 12:54 | PDOC ---
History of Present Illness - General History Source: Patient Exam Limitations: No Limitations - History of Present Illness Initial Comments: 10/17/17 13:04 Patient is a 62-year-old male brought in by ambulance for alcohol intoxication today. Patient is well-known to the emergency department. [place] Patient states he did not drink today however there is alcohol on the breath. Denies any acute trauma or falls. Admits to lower back pain. Denies weakness in the legs, numbness and tingling, bladder or bowel incontinence, saddle anesthesia. <Nina Rae - Last Filed: 10/17/17 13:04> <Skye Rashid - Last Filed: 10/17/17 16:02> - General Stated Complaint: ALCOHOL INTOXICATION Time Seen by Provider: 10/17/17 12:54 Past History <Nina Rae - Last Filed: 10/17/17 13:04> - Past Medical History Anemia: No Asthma: No Cancer: Yes (mesothelioma) Cardiac Disorders: No CVA: No COPD: No CHF: No DVT: No Dementia: No Diabetes: No GI Disorders: No Disorders: No HTN: Yes Hypercholesterolemia: No Kidney Stones: No Liver Disease: No Psychiatric Problems: Yes (alcoholism) Seizures: No Thyroid Disease: No - Surgical History Abdominal Surgery: No Appendectomy: No Cardiac Surgery: No Cholecystectomy: No Lung Surgery: No Neurologic Surgery: No Orthopedic Surgery: No - Family Disease History Family Disease History: CA: Mother - Reproductive History Testicular Surgery: No - Immunization History TDAP Vaccination: Yes Immunization Up to Date: Yes - Suicide/Smoking/Psychosocial Hx Smoking Status: No Smoking History: Unknown if ever smoked Have you smoked in the past 12 months: No Number of Cigarettes Smoked Daily: 0 If you are a former smoker, when did you quit?: 0 Cigars Per Day: 0 'Breaking Loose' booklet given: 09/22/17 Hx Alcohol Use: No Drug/Substance Use Hx: No Substance Use Type: None Hx Substance Use Treatment: Yes <Skye Rashid - Last Filed: 10/17/17 16:02> - Past Medical History Allergies/Adverse Reactions: Allergies Allergy/AdvReac Type Severity Reaction Status Date / Time Fish Containing Products Allergy Mild Swelling Verified 10/17/17 13:50 No Known Drug Allergies Allergy Verified 10/17/17 13:50 Home Medications: Ambulatory Orders NK [No Known Home Medication] 07/27/17 Review of Systems - Review of Systems Able to Perform ROS?: Yes Comments:: 10/17/17 13:05 CONSTITUTIONAL: Absent: fever, chills, diaphoresis, generalized weakness, malaise, loss of appetite HEENT: Absent: rhinorrhea, nasal congestion, throat pain, throat swelling, difficulty swallowing, mouth swelling, ear pain, eye pain, visual Changes CARDIOVASCULAR: Absent: chest pain, loss of consciousness, palpitations, irregular heart rate, peripheral edema RESPIRATORY: Absent: cough, shortness of breath, dyspnea with exertion, orthopnea, wheezing, stridor, hemoptysis GASTROINTESTINAL: Absent: abdominal pain, abdominal distension, nausea, vomiting, diarrhea, constipation, melena, hematochezia GENITOURINARY: Absent: dysuria, frequency, urgency, hesitancy, hematuria, flank pain, genital pain MUSCULOSKELETAL: Present: back pain Absent: myalgia, arthralgia, joint swelling SKIN: Absent: rash, itching, pallor HEMATOLOGIC/IMMUNOLOGIC: Absent: easy bleeding, easy bruising, lymphadenopathy, frequent infections ENDOCRINE: Absent: unexplained weight gain, unexplained weight loss, heat intolerance, cold intolerance NEUROLOGIC: Absent: headache, focal weakness or paresthesias, dizziness, unsteady gait, seizure, mental status changes, bladder or bowel incontinence PSYCHIATRIC: Absent: anxiety, depression, suicidal or homicidal ideation, hallucinations. <ButchNina - Last Filed: 10/17/17 13:04> *Physical Exam - Physical Exam Comments: 10/17/17 13:05 GENERAL: Well developed, well nourished. Awake and alert. No acute distress. Alcohol on the breath. HEENT: Normocephalic, atraumatic. PERRLA, EOMI. No conjunctival pallor. Sclera are non- icteric. Moist mucous membranes. Oropharynx is clear. NECK: Supple. Full ROM. No JVD. Carotid pulses 2+ and symmetric, without bruits. No thyromegaly. No lymphadenopathy. CARDIOVASCULAR: Regular rate and rhythm. No murmurs, rubs, or gallops. Distal pulses are 2+ and symmetric. PULMONARY: No evidence of respiratory distress. Lungs clear to auscultation bilaterally. No wheezing, rales or rhonchi. ABDOMINAL: Soft. Non-tender. Non-distended. No rebound or guarding. No organomegaly. Normoactive bowel sounds. MUSCULOSKELETAL TTP of R lower paraspinous muscles with palpable knot. Normal range of motion at all joints. No bony deformities or tenderness. No CVA tenderness. EXTREMITIES: No cyanosis. No clubbing. No edema. No calf tenderness. SKIN: (+)Healing abrasion to left elbow. Warm and dry. Normal capillary refill. No jaundice. NEUROLOGICAL: Alert, awake, appropriate. Cranial nerves 2-12 intact. No deficits to light touch and temperature in face, upper extremities and lower extremities. No motor deficits in the in face, upper extremities and lower extremities. Normoreflexic in the upper and lower extremities. Normal speech. Toes are down- going bilaterally. Gait is normal without ataxia. PSYCHIATRIC: Cooperative. Good eye contact. Appropriate mood and affect. <Nina Rae - Last Filed: 10/17/17 13:04> Medical Decision Making - Medical Decision Making 10/17/17 12:58 62yo male arrives via medics after being found outside drinking etoh -hx of alcohol abuse -smell of etoh on his breath -speaking in full sentecnes, healing abrasion to L elbow -no new external signs of trauma -will allow pt to metabolize 10/17/17 16:00 pt ambulatory with a steady gait. standing at the desk asking to be discharged. speaking in full sentences <Skye Rashid - Last Filed: 10/17/17 16:02> *DC/Admit/Observation/Transfer - Attestations Scribe Attestion: 10/17/17 13:07 Documentation prepared by Nina Rae, acting as medical office worker for Skye Rashid DO. <Nina Rae - Last Filed: 10/17/17 13:04> - Discharge Dispostion Admit: No - Attestations Physician Attestion: 10/17/17 13:02 I, Dr. Skye Rashid DO, attest that this document has been prepared under my direction and personally reviewed by me in its entirety. I further attest, that it accurately reflects all work, treatment, procedures and medical decision -making performed by me. <Skye Rashid - Last Filed: 10/17/17 16:02> Diagnosis at time of Disposition: Alcohol dependence with intoxication - Discharge Dispostion Disposition: HOME Condition at time of disposition: Stable - Referrals Referrals: Garima Bridges MD [Primary Care Provider] - - Patient Instructions Printed Discharge Instructions: DI for Alcohol Abuse Additional Instructions: Please stop drinking alcohol. - Post Discharge Activity
[2017-10-17 13:53] VITALS: BP 110/73; PULSE 98; TEMP 98; BMI 32.3
== END 2017-10-17 17:00 | disposition home or self-care (01) ==
LOC: JER 12:45
DX: F10.220 Alcohol dependence with intoxication, uncomplicated (principal); I10 Essential (primary) hypertension; C45.9 Mesothelioma, unspecified; Z59.0 Homelessness
CPT/HCPCS: 99282-25

== ENCOUNTER 2017-10-19 14:45 | Emergency (ER) | payer OTHER ==
[2017-10-19 14:54] VITALS: BP 117/80; PULSE 83; TEMP 97.6; BMI 32.3
--- NOTE | 2017-10-19 15:59 | PDOC ---
Attending Attestation - Resident Resident Name: Edilberto Lenz - ED Attending Attestation I have performed the following: I have examined & evaluated the patient, The case was reviewed & discussed with the resident, I agree w/resident's findings & plan - HPI HPI: 10/19/17 15:57 62-year-old male well known to this institution and department brought in by EMS with alcohol intoxication. There was mention of shortness of breath in the field, the patient now denies, stating he never had chest pain or difficulty breathing. - Physicial Exam PE: 10/19/17 15:57 Vital signs are normal Patient appears at his baseline, seated comfortably in stretcher speaking full sentences, joking with staff Only very slightly intoxicated, actually ambulating and standing steadily Lungs are clear at this time, heart is regular - Medical Decision Making 10/19/17 15:58 Patient seen and evaluated with the resident. I agree with the overall evaluation, assessment, and management with the following summary of visit: 62-year-old male well known to us presents with slight alcohol intoxication, no cardiac pulmonary complaints or findings. Vitals are normal, no indication for emergent workup or treatment. Monitored for sobriety, discharge accordingly
--- NOTE | 2017-10-19 16:19 | PDOC ---
History of Present Illness - General Chief Complaint: Alcohol intoxication Stated Complaint: SOB Time Seen by Provider: 10/19/17 15:07 History Source: Patient Exam Limitations: No Limitations - History of Present Illness Initial Comments: 10/19/17 16:06 Patient is a 62M well known to the ED who came into the ED complaining of shortness of breath. He states that this shortness of breath has resolved since reporting it to EMS. Denies chest pain. Denies abdominal pain. Endorses drinking today, states that he drinks every day. Past History - Past Medical History Allergies/Adverse Reactions: Allergies Allergy/AdvReac Type Severity Reaction Status Date / Time Fish Containing Products Allergy Mild Swelling Verified 10/17/17 13:50 No Known Drug Allergies Allergy Verified 10/17/17 13:50 Home Medications: Ambulatory Orders NK [No Known Home Medication] 07/27/17 Anemia: No Asthma: No Cancer: Yes (mesothelioma) Cardiac Disorders: No CVA: No COPD: No CHF: No DVT: No Dementia: No Diabetes: No GI Disorders: No Disorders: No HTN: Yes Hypercholesterolemia: No Kidney Stones: No Liver Disease: No Psychiatric Problems: Yes (alcoholism) Seizures: No Thyroid Disease: No - Surgical History Abdominal Surgery: No Appendectomy: No Cardiac Surgery: No Cholecystectomy: No Lung Surgery: No Neurologic Surgery: No Orthopedic Surgery: No - Family Disease History Family Disease History: CA: Mother - Reproductive History Testicular Surgery: No - Immunization History TDAP Vaccination: Yes Immunization Up to Date: Yes - Suicide/Smoking/Psychosocial Hx Smoking Status: No Smoking History: Unknown if ever smoked Have you smoked in the past 12 months: No Number of Cigarettes Smoked Daily: 0 If you are a former smoker, when did you quit?: 0 Cigars Per Day: 0 'Breaking Loose' booklet given: 09/22/17 Hx Alcohol Use: Yes Drug/Substance Use Hx: No Substance Use Type: None Hx Substance Use Treatment: Yes Review of Systems - Review of Systems Comments:: 10/19/17 16:20 GENERAL/CONSTITUTIONAL: No fever or chills. HEAD, EYES, EARS, NOSE AND THROAT: No change in vision. No sore throat. CARDIOVASCULAR: No chest pain or shortness of breath RESPIRATORY: No cough, wheezing, or hemoptysis. GASTROINTESTINAL: No nausea, vomiting, diarrhea or constipation. GENITOURINARY: No dysuria, frequency, or change in urination. SKIN: No rash NEUROLOGIC: No headache, vertigo, loss of consciousness, or change in strength/ sensation. ENDOCRINE: No increased thirst. No abnormal weight change ALLERGIC/IMMUNOLOGIC: No hives or skin allergy. *Physical Exam - Vital Signs Last Vital Signs Temp Pulse Resp BP Pulse Ox 97.6 F 83 18 117/80 95 10/19/17 14:50 10/19/17 14:50 10/19/17 14:50 10/19/17 14:50 10/19/17 14:50 - Physical Exam Comments: 10/19/17 16:20 GENERAL: Awake, alert, and fully oriented, in no acute distress, discheveled HEAD: No signs of trauma, normocephalic, atraumatic EYES: PERRLA, EOMI, sclera anicteric, conjunctiva clear ENT: Auricles normal inspection, hearing grossly normal, nares patent, oropharynx clear without exudates. Moist mucosa NECK: Normal ROM, supple, no lymphadenopathy, JVD, or masses LUNGS: No distress, speaks full sentences, clear to auscultation bilaterally HEART: Regular rate and rhythm, normal S1 and S2, no murmurs, rubs or gallops, peripheral pulses normal and equal bilaterally. ABDOMEN: Soft, nontender, normoactive bowel sounds. No guarding, no rebound. No masses EXTREMITIES: Normal inspection, Normal range of motion, no edema. No clubbing or cyanosis. NEUROLOGICAL: Cranial nerves II through XII grossly intact. Normal speech, normal gait, no focal sensorimotor deficits SKIN: Warm, Dry, normal turgor, no rashes or lesions noted. Medical Decision Making - Medical Decision Making 10/19/17 16:22 62M well known to service here today with intoxication. Asking for food, tolerating PO. Ambulatory and alert today. Likely has eloped. 10/19/17 18:58 Patient has eloped. *DC/Admit/Observation/Transfer Diagnosis at time of Disposition: Alcohol intoxication - Discharge Dispostion Disposition: ELOPED Condition at time of disposition: Stable Admit: No - Referrals - Patient Instructions - Post Discharge Activity
== END 2017-10-19 16:25 | disposition left against medical advice (07) ==
LOC: JER 14:45
DX: F10.220 Alcohol dependence with intoxication, uncomplicated (principal); I10 Essential (primary) hypertension; C45.9 Mesothelioma, unspecified; Z59.0 Homelessness
CPT/HCPCS: 99282-25

== ENCOUNTER 2017-10-20 14:58 | Emergency (ER) | payer OTHER ==
[2017-10-20 15:25] VITALS: BP 139/80; PULSE 94; TEMP 98; BMI 46.0
[2017-10-20] MEDS ORDERED: ACETAMINOPHEN 325 MG TABLET (FP) PO ONE (15:41)
--- NOTE | 2017-10-20 15:41 | PDOC ---
History of Present Illness - General Chief Complaint: Back Pain Stated Complaint: INTOX Time Seen by Provider: 10/20/17 15:40 History Source: Patient Exam Limitations: No Limitations - History of Present Illness Initial Comments: 10/20/17 16:11 Patient is a 62-year-old male brought in by ambulance for alcohol intoxication. Patient is well-known to the emergency department. Patient state that his low back hurts and that he is hungry. States that he did not drink today however he smells of alcohol. Denies trauma or falls. Denies weakness in legs, numbness and tingling, but or bowel incontinence or saddle anesthesia. Past History - Travel Traveled outside of the country in the last 30 days: No Close contact w/someone who was outside of country & ill: No - Past Medical History Allergies/Adverse Reactions: Allergies Allergy/AdvReac Type Severity Reaction Status Date / Time Fish Containing Products Allergy Mild Swelling Verified 10/20/17 15:24 No Known Drug Allergies Allergy Verified 10/20/17 15:24 Home Medications: Ambulatory Orders NK [No Known Home Medication] 07/27/17 Anemia: No Asthma: No Cancer: Yes (mesothelioma) Cardiac Disorders: No CVA: No COPD: No CHF: No DVT: No Dementia: No Diabetes: No GI Disorders: No Disorders: No HTN: Yes Hypercholesterolemia: No Kidney Stones: No Liver Disease: No Psychiatric Problems: Yes (alcoholism) Seizures: No Thyroid Disease: No - Surgical History Abdominal Surgery: No Appendectomy: No Cardiac Surgery: No Cholecystectomy: No Lung Surgery: No Neurologic Surgery: No Orthopedic Surgery: No - Family Disease History Family Disease History: CA: Mother - Reproductive History Testicular Surgery: No - Immunization History TDAP Vaccination: Yes Immunization Up to Date: Yes - Suicide/Smoking/Psychosocial Hx Smoking Status: No Smoking History: Never smoked Have you smoked in the past 12 months: No Number of Cigarettes Smoked Daily: 0 If you are a former smoker, when did you quit?: 0 Cigars Per Day: 0 Information on smoking cessation initiated: No 'Breaking Loose' booklet given: 09/22/17 Hx Alcohol Use: No Drug/Substance Use Hx: No Substance Use Type: None Hx Substance Use Treatment: Yes Review of Systems - Review of Systems Able to Perform ROS?: Yes Comments:: 10/20/17 16:12 CONSTITUTIONAL: Absent: fever, chills, diaphoresis, generalized weakness, malaise, loss of appetite HEENT: Absent: rhinorrhea, nasal congestion, throat pain, throat swelling, difficulty swallowing, mouth swelling, ear pain, eye pain, visual Changes CARDIOVASCULAR: Absent: chest pain, loss of consciousness, palpitations, irregular heart rate, peripheral edema RESPIRATORY: Absent: cough, shortness of breath, dyspnea with exertion, orthopnea, wheezing, stridor, hemoptysis GASTROINTESTINAL: Absent: abdominal pain, abdominal distension, nausea, vomiting, diarrhea, constipation, melena, hematochezia GENITOURINARY: Absent: dysuria, frequency, urgency, hesitancy, hematuria, flank pain, genital pain MUSCULOSKELETAL: Present: low back pain Absent: myalgia, arthralgia, joint swelling SKIN: Absent: rash, itching, pallor HEMATOLOGIC/IMMUNOLOGIC: Absent: easy bleeding, easy bruising, lymphadenopathy, frequent infections ENDOCRINE: Absent: unexplained weight gain, unexplained weight loss, heat intolerance, cold intolerance NEUROLOGIC: Absent: headache, focal weakness or paresthesias, dizziness, unsteady gait, seizure, mental status changes, bladder or bowel incontinence PSYCHIATRIC: Absent: anxiety, depression, suicidal or homicidal ideation, hallucinations. Is the patient limited [place]wana proficient: No *Physical Exam - Vital Signs Last Vital Signs Temp Pulse Resp BP Pulse Ox 98 F 94 H 16 139/80 95 10/20/17 15:20 10/20/17 15:20 10/20/17 15:20 10/20/17 15:20 10/20/17 15:20 - Physical Exam Comments: 10/24/17 13:12 GENERAL: Well developed, well nourished. Awake and alert. No acute distress. HEENT: Normocephalic, atraumatic. PERRLA, EOMI. No conjunctival pallor. Sclera are non- icteric. Moist mucous membranes. Oropharynx is clear. NECK: Supple. Full ROM. No JVD. Carotid pulses 2+ and symmetric, without bruits. No thyromegaly. No lymphadenopathy. CARDIOVASCULAR: Regular rate and rhythm. No murmurs, rubs, or gallops. Distal pulses are 2+ and symmetric. PULMONARY: No evidence of respiratory distress. Lungs clear to auscultation bilaterally. No wheezing, rales or rhonchi. ABDOMINAL: Soft. Non-tender. Non-distended. No rebound or guarding. No organomegaly. Normoactive bowel sounds. MUSCULOSKELETAL TTP of low back b/l. No midline tenderness. Normal range of motion at all joints. No bony deformities or tenderness. No CVA tenderness. EXTREMITIES: No cyanosis. No clubbing. No edema. No calf tenderness. SKIN: Warm and dry. Normal capillary refill. No rashes. No jaundice. NEUROLOGICAL: Alert, awake, appropriate. Cranial nerves 2-12 intact. No deficits to light touch and temperature in face, upper extremities and lower extremities. No motor deficits in the in face, upper extremities and lower extremities. Normoreflexic in the upper and lower extremities. Normal speech. Toes are down- going bilaterally. Gait is normal without ataxia. PSYCHIATRIC: Cooperative. Good eye contact. Appropriate mood and affect. Medical Decision Making - Medical Decision Making 10/20/17 16:17 Patient is 6-year-old male well-known to the emergency department prior for alcohol intoxication today. Pt with low back pain, however strength and sensation intact b/l. Tylenol given at this time. Patient is requesting food at this time. Has no complaints. We'll let patient metabolize alcohol and release. 10/24/17 13:10 Patient states he feels better and walks out of ED prior to discharge. Pt elopes. *DC/Admit/Observation/Transfer Diagnosis at time of Disposition: Intoxication - Discharge Dispostion Disposition: [facility] - Referrals - Patient Instructions - Post Discharge Activity
--- NOTE | 2017-10-20 16:03 | PDOC ---
*Physical Exam - Vital Signs Last Vital Signs Temp Pulse Resp BP Pulse Ox 98 F 94 H 16 139/80 95 10/20/17 15:20 10/20/17 15:20 10/20/17 15:20 10/20/17 15:20 10/20/17 15:20 ED Treatment Course - Medications Given in the ED: ED Medications Discontinued Medications Generic Name Dose Route Start Last Admin Trade Name Freq PRN Reason Stop Dose Admin Acetaminophen 650 mg 10/20/17 15:41 10/20/17 16:02 Tylenol - PO 10/20/17 15:42 650 mg ONCE ONE Administration Medical Decision Making - Medical Decision Making 10/20/17 16:03 Pt seen by the Advanced Practice Provider under my direct supervision Ancillary studies reviewed I agree with plan as outlined by the Advanced Practice Provider APPLE Oliver *DC/Admit/Observation/Transfer Diagnosis at time of Disposition: Intoxication - Discharge Dispostion Disposition: [facility] - Referrals - Patient Instructions - Post Discharge Activity
== END 2017-10-20 19:03 | disposition left against medical advice (07) ==
LOC: JER 14:58
DX: F10.220 Alcohol dependence with intoxication, uncomplicated (principal); I10 Essential (primary) hypertension; C45.9 Mesothelioma, unspecified; Z59.0 Homelessness
CPT/HCPCS: 99281-25

== ENCOUNTER 2017-10-22 15:08 | Emergency (ER) | payer OTHER ==
[2017-10-22 15:41] VITALS: TEMP 98.4; BMI 32.1
--- NOTE | 2017-10-22 16:04 | PDOC ---
History of Present Illness - History of Present Illness Initial Comments: 10/22/17 18:39 Patient is a 62 year old Male came in initially complaints of chronic pain but does not have pain now, is intoxicated and requesting for food. He admits to having had a pint of alcohol daily including today. He was brought in from the senior care. Denies trauma, or fall, chest pain, SOB, cough, palpitations, dysuria, fever or chills. Allergies: Fish. Social history: No smoking. Current alcohol use. <Kamari Flroes - Last Filed: 10/22/17 18:39> - General History Source: Patient Exam Limitations: Intoxication <Nitish Hernandez - Last Filed: 11/06/17 09:18> - General Chief Complaint: Alcohol intoxication Stated Complaint: INTOX Time Seen by Provider: 10/22/17 16:01 Past History <Kamari Flores - Last Filed: 10/22/17 18:39> - Past Medical History Anemia: No Asthma: No Cancer: Yes (mesothelioma) Cardiac Disorders: No CVA: No COPD: No CHF: No DVT: No Dementia: No Diabetes: No GI Disorders: No Disorders: No HTN: Yes Hypercholesterolemia: No Kidney Stones: No Liver Disease: No Psychiatric Problems: Yes (alcoholism) Seizures: No Thyroid Disease: No - Surgical History Abdominal Surgery: No Appendectomy: No Cardiac Surgery: No Cholecystectomy: No Lung Surgery: No Neurologic Surgery: No Orthopedic Surgery: No - Family Disease History Family Disease History: CA: Mother - Reproductive History Testicular Surgery: No - Immunization History TDAP Vaccination: Yes Immunization Up to Date: Yes - Suicide/Smoking/Psychosocial Hx Smoking Status: No Smoking History: Unknown if ever smoked Have you smoked in the past 12 months: No Number of Cigarettes Smoked Daily: 0 If you are a former smoker, when did you quit?: 0 Cigars Per Day: 0 'Breaking Loose' booklet given: 09/22/17 Hx Alcohol Use: Yes (ileana) Drug/Substance Use Hx: No Substance Use Type: Alcohol Hx Substance Use Treatment: Yes <Nitish Hernandez - Last Filed: 11/06/17 09:18> - Past Medical History Allergies/Adverse Reactions: Allergies Allergy/AdvReac Type Severity Reaction Status Date / Time Fish Containing Products Allergy Mild Swelling Verified 10/30/17 11:54 No Known Drug Allergies Allergy Verified 10/30/17 11:54 Home Medications: Ambulatory Orders NK [No Known Home Medication] 07/27/17 Review of Systems - Review of Systems Able to Perform ROS?: Yes Comments:: 10/22/17 18:40 GENERAL/CONSTITUTIONAL: No fever or chills. No weakness. HEAD, EYES, EARS, NOSE AND THROAT: No change in vision. No ear pain or discharge. No sore throat. CARDIOVASCULAR: No chest pain or shortness of breath. RESPIRATORY: No cough, wheezing, or hemoptysis. GASTROINTESTINAL: No nausea, vomiting, diarrhea or constipation. GENITOURINARY: No dysuria, frequency, or change in urination. MUSCULOSKELETAL: No joint or muscle swelling or pain. No neck or back pain. SKIN: No rash NEUROLOGIC: No headache, vertigo, loss of consciousness, or change in strength/ sensation. ENDOCRINE: No increased thirst. No abnormal weight change. HEMATOLOGIC/LYMPHATIC: No anemia, easy bleeding, or history of blood clots. ALLERGIC/IMMUNOLOGIC: No hives or skin allergy. <Kamari Flores - Last Filed: 10/22/17 18:39> *Physical Exam - Vital Signs Last Vital Signs Temp Pulse Resp BP Pulse Ox 98.4 F 83 16 111/68 99 10/22/17 15:10 10/22/17 15:10 10/22/17 15:10 10/22/17 15:10 10/22/17 15:10 - Physical Exam Comments: 10/22/17 18:40 GENERAL: Awake, alert, and fully oriented, in no acute distress HEAD: No signs of trauma EYES: PERRLA, EOMI, sclera anicteric, conjunctiva clear ENT: Auricles normal inspection, hearing grossly normal, nares patent, oropharynx clear without exudates. Moist mucosa NECK: Normal ROM, supple, no lymphadenopathy, JVD, or masses LUNGS:Breath sounds equal, clear to auscultation bilaterally. No wheezes, and no crackles HEART: Regular rate and rhythm, normal S1 and S2, no murmurs, rubs or gallops ABDOMEN: Soft, nontender, normoactive bowel sounds. No guarding, no rebound. No masses EXTREMITIES: Normal range of motion, no edema. No clubbing or cyanosis. No cords, erythema, or tenderness NEUROLOGICAL: Cranial nerves II through XII grossly intact. Normal speech, normal gait SKIN: Warm, Dry, normal turgor, no rashes or lesions noted. <Kamari Flores - Last Filed: 10/22/17 18:39> - Vital Signs Last Vital Signs Temp Pulse Resp BP Pulse Ox 98.4 F 83 16 111/68 99 10/22/17 15:10 10/22/17 15:10 10/22/17 15:10 10/22/17 15:10 10/22/17 15:10 - Physical Exam Comments: GENERAL: intoxicated <Nitish Hernandez - Last Filed: 11/06/17 09:18> Medical Decision Making - Medical Decision Making 10/22/17 16:03 A portion of this note was documented by scribe services under my direction. I have reviewed the details of the note, within reason, and agree with the documentation with the following case summary and management plan written by me. Patient treated in the ED. Nursing notes are reviewed and incorporated into the medical decision-making. Vital signs reviewed. Vital Signs Temp Pulse Resp BP Pulse Ox 98.4 F 83 16 111/68 99 10/22/17 15:10 10/22/17 15:10 10/22/17 15:10 10/22/17 15:10 10/22/17 15:10 Pt well known to us for alcohol abuse. Presents by EMS with alcohol intoxication. Admits to alcohol use. Denies other injuries or pain. Will allow the patient to metabolize and sober and reassess. 10/22/17 19:11 Pt signed out to Dr. Iniguez for further management. <Nitish Hernandez - Last Filed: 11/06/17 09:18> *DC/Admit/Observation/Transfer - Attestations Scribe Attestion: 10/22/17 18:41 Documentation prepared by Kamari Flores, acting as medical records technician for Nitish Hernandez MD, /DO. <Kamari Flores - Last Filed: 10/22/17 18:39> <Nitish Hernandez - Last Filed: 11/06/17 09:18> Diagnosis at time of Disposition: Alcohol intoxication - Discharge Dispostion Disposition: HOME Condition at time of disposition: Stable - Patient Instructions Printed Discharge Instructions: DI for Alcohol Abuse
--- NOTE | 2017-10-23 06:25 | PDOC ---
*Physical Exam - Vital Signs Last Vital Signs Temp Pulse Resp BP Pulse Ox 98.4 F 83 16 111/68 99 10/22/17 15:10 10/22/17 15:10 10/22/17 15:10 10/22/17 15:10 10/22/17 15:10 *DC/Admit/Observation/Transfer Diagnosis at time of Disposition: Alcohol intoxication - Discharge Dispostion Disposition: HOME Condition at time of disposition: Stable Decision to Admit order: No - Referrals - Patient Instructions Printed Discharge Instructions: DI for Alcohol Abuse - Post Discharge Activity
[2017-10-23] MEDS ORDERED: chlordiazePOXIDE HCL 25 MG CAPSULE PO ONE (06:26)
[2017-10-23 06:38] VITALS: BP 136/78; PULSE 89
== END 2017-10-23 06:35 | disposition home or self-care (01) ==
LOC: JER 15:08
DX: F10.220 Alcohol dependence with intoxication, uncomplicated (principal); I10 Essential (primary) hypertension; C45.9 Mesothelioma, unspecified; Z59.0 Homelessness
CPT/HCPCS: 99282-25

== ENCOUNTER 2017-10-24 11:52 | Emergency (ER) | payer OTHER ==
[2017-10-24 12:01] VITALS: BP 137/92; PULSE 89; TEMP 98.6; BMI 31.5
--- NOTE | 2017-10-24 12:07 | PDOC ---
History of Present Illness - General Chief Complaint: Alcohol intoxication Stated Complaint: INTXO Time Seen by Provider: 10/24/17 12:00 History Source: Patient - History of Present Illness Initial Comments: 10/24/17 13:07 Patient is a 62-year-old male brought in by ambulance for alcohol intoxication. Patient is well-known to the emergency department. Patient has no complaints at this time states he is hungry. States that he did not drink today however he smells of alcohol. Denies trauma or falls. Denies weakness in legs, numbness and tingling, but or bowel incontinence or saddle anesthesia. Past History - Travel Traveled outside of the country in the last 30 days: No Close contact w/someone who was outside of country & ill: No - Past Medical History Allergies/Adverse Reactions: Allergies Allergy/AdvReac Type Severity Reaction Status Date / Time Fish Containing Products Allergy Mild Swelling Verified 10/20/17 15:24 No Known Drug Allergies Allergy Verified 10/20/17 15:24 Home Medications: Ambulatory Orders NK [No Known Home Medication] 07/27/17 Anemia: No Asthma: No Cancer: Yes (mesothelioma) Cardiac Disorders: No CVA: No COPD: No CHF: No DVT: No Dementia: No Diabetes: No GI Disorders: No Disorders: No HTN: Yes Hypercholesterolemia: No Kidney Stones: No Liver Disease: No Psychiatric Problems: Yes (alcoholism) Seizures: No Thyroid Disease: No - Surgical History Abdominal Surgery: No Appendectomy: No Cardiac Surgery: No Cholecystectomy: No Lung Surgery: No Neurologic Surgery: No Orthopedic Surgery: No - Family Disease History Family Disease History: CA: Mother - Reproductive History Testicular Surgery: No - Immunization History TDAP Vaccination: Yes Immunization Up to Date: Yes - Suicide/Smoking/Psychosocial Hx Smoking Status: No Smoking History: Never smoked Have you smoked in the past 12 months: No Number of Cigarettes Smoked Daily: 0 If you are a former smoker, when did you quit?: 0 Cigars Per Day: 0 'Breaking Loose' booklet given: 09/22/17 Hx Alcohol Use: Yes Drug/Substance Use Hx: No Substance Use Type: Alcohol Hx Substance Use Treatment: Yes Review of Systems - Review of Systems Able to Perform ROS?: Yes Comments:: 10/24/17 12:07 CONSTITUTIONAL: Absent: fever, chills, diaphoresis, generalized weakness, malaise, loss of appetite HEENT: Absent: rhinorrhea, nasal congestion, throat pain, throat swelling, difficulty swallowing, mouth swelling, ear pain, eye pain, visual Changes CARDIOVASCULAR: Absent: chest pain, loss of consciousness, palpitations, irregular heart rate, peripheral edema RESPIRATORY: Absent: cough, shortness of breath, dyspnea with exertion, orthopnea, wheezing, stridor, hemoptysis GASTROINTESTINAL: Absent: abdominal pain, abdominal distension, nausea, vomiting, diarrhea, constipation, melena, hematochezia GENITOURINARY: Absent: dysuria, frequency, urgency, hesitancy, hematuria, flank pain, genital pain MUSCULOSKELETAL: Absent: myalgia, arthralgia, joint swelling SKIN: Absent: rash, itching, pallor HEMATOLOGIC/IMMUNOLOGIC: Absent: easy bleeding, easy bruising, lymphadenopathy, frequent infections ENDOCRINE: Absent: unexplained weight gain, unexplained weight loss, heat intolerance, cold intolerance NEUROLOGIC: Absent: headache, focal weakness or paresthesias, dizziness, unsteady gait, seizure, mental status changes, bladder or bowel incontinence PSYCHIATRIC: Absent: anxiety, depression, suicidal or homicidal ideation, hallucinations. Is the patient limited [place]i proficient: No *Physical Exam - Vital Signs Last Vital Signs Temp Pulse Resp BP Pulse Ox 98.6 F 89 18 137/92 98 10/24/17 12:00 10/24/17 12:00 10/24/17 12:00 10/24/17 12:00 10/24/17 12:00 - Physical Exam Comments: 10/24/17 12:07 GENERAL: Well developed, well nourished. Awake and alert. No acute distress. Appears intoxicated with alcohol on the breath HEENT: Normocephalic, atraumatic. PERRLA, EOMI. No conjunctival pallor. Sclera are non- icteric. Moist mucous membranes. Oropharynx is clear. NECK: Supple. Full ROM. No JVD. Carotid pulses 2+ and symmetric, without bruits. No thyromegaly. No lymphadenopathy. CARDIOVASCULAR: Regular rate and rhythm. No murmurs, rubs, or gallops. Distal pulses are 2+ and symmetric. PULMONARY: No evidence of respiratory distress. Lungs clear to auscultation bilaterally. No wheezing, rales or rhonchi. ABDOMINAL: Soft. Non-tender. Non-distended. No rebound or guarding. No organomegaly. Normoactive bowel sounds. MUSCULOSKELETAL Normal range of motion at all joints. No bony deformities or tenderness. No CVA tenderness. EXTREMITIES: No cyanosis. No clubbing. No edema. No calf tenderness. SKIN: Warm and dry. Normal capillary refill. No rashes. No jaundice. NEUROLOGICAL: Alert, awake, appropriate. Cranial nerves 2-12 intact. No deficits to light touch and temperature in face, upper extremities and lower extremities. No motor deficits in the in face, upper extremities and lower extremities. Normoreflexic in the upper and lower extremities. Normal speech. Toes are down- going bilaterally. Gait is normal without ataxia. PSYCHIATRIC: Intoxicated. Cooperative. Good eye contact. Appropriate mood and affect. Medical Decision Making - Medical Decision Making 10/24/17 12:27 Patient is 6-year-old male well-known to the emergency department prior for alcohol intoxication today. Patient is requesting food at this time. Has no complaints. We'll let patient metabolize alcohol and release. 10/24/17 13:10 Patient requesting discharge at this time. Walking around the emergency department with no obvious gait changes. We'll discharge home. *DC/Admit/Observation/Transfer Diagnosis at time of Disposition: Intoxication - Discharge Dispostion Disposition: HOME Condition at time of disposition: Stable Decision to Admit order: No - Referrals Referrals: Toni Iyer MD [Staff Physician] - - Patient Instructions Printed Discharge Instructions: DI for Alcohol Abuse Additional Instructions: Avoid alcohol Return to the ED with any new or worsening symptoms - Post Discharge Activity
== END 2017-10-24 13:06 | disposition home or self-care (01) ==
LOC: JER 11:52
PROC: 3E0337Z Introduction of Electrolytic and Water Balance Substance into Peripheral Vein, Percutaneous Approach (ICD-10-PCS; principal; 2017-10-24)
DX: R07.89 Other chest pain (principal); F10.220 Alcohol dependence with intoxication, uncomplicated; I10 Essential (primary) hypertension; C45.9 Mesothelioma, unspecified; Z59.0 Homelessness
CPT/HCPCS: 96360; 99283-25

== ENCOUNTER 2017-10-25 02:02 | Emergency (ER) | payer OTHER ==
[2017-10-25] MEDS ORDERED: SODIUM CHLORIDE 1,000 ML IV STA (02:05)
--- NOTE | 2017-10-25 02:05 | PDOC ---
History of Present Illness - General Stated Complaint: DIFFICULTY BREATHING Time Seen by Provider: 10/25/17 02:04 History Source: Patient Exam Limitations: No Limitations - History of Present Illness Initial Comments: 10/25/17 03:41 History of Present Illness: 61-year-old male with PMH of mesothelioma with an extension hx of EtOH abuse with multiple ER visits and admissions due to EtOH abuse is biba for public intoxication. Patient at this time is noted to have AOB. Patient is not slurring his speech at this time but is unstable in gait and is intoxicated. Patient is A&Ox3 to deny f/c,n/v/d, constipation, lightheadedness, dizziness, guerra, blurry vision, visual disturbance, chest pain, sob, neck/back pain, abd pain , urinary symptoms; urgency/frequency/hesitancy, hematuria. Patient denies any sick contacts, travel outside the [place] or contact with any sick individuals who have been outside the [place]. Patient states he's been experiencing 4/10 dull nonradiating intermittent right-sided chest discomfort without shortness of breath or any other symptoms which started 2 days ago. Past Medical History: ETOH abuse, Mesothelioma Family History: Mother with cancer Social History: EtOH abuse Surgical history: Denies Allergies: No known drug allergies ROS: CONSTITUTIONAL: Absent: fever, chills, diaphoresis, generalized weakness, malaise, loss of appetite HEENT: Absent: rhinorrhea, nasal congestion, throat pain, throat swelling, difficulty swallowing, mouth swelling, ear pain, eye pain, visual Changes CARDIOVASCULAR: +right sided cp Absent: loss of consciousness, palpitations, irregular heart rate, peripheral edema RESPIRATORY: Absent: cough, shortness of breath, dyspnea with exertion, orthopnea, wheezing, stridor, hemoptysis GASTROINTESTINAL: Absent: abdominal pain, abdominal distension, nausea, vomiting, diarrhea, constipation, melena, hematochezia GENITOURINARY: Absent: dysuria, frequency, urgency, hesitancy, hematuria, flank pain, genital pain MUSCULOSKELETAL: Absent: myalgia, arthralgia, joint swelling SKIN: Absent: rash, itching, pallor HEMATOLOGIC/IMMUNOLOGIC: Absent: easy bleeding, easy bruising, lymphadenopathy, frequent infections ENDOCRINE: Absent: unexplained weight gain, unexplained weight loss, heat intolerance, cold intolerance NEUROLOGIC: Absent: headache, focal weakness or paresthesias, dizziness, unsteady gait, seizure, mental status changes, bladder or bowel incontinence PSYCHIATRIC: Absent:+EtOH abuse, No depression or anxiety.anxiety, depression, suicidal or homicidal ideation, hallucinations. GENERAL: Well developed, well nourished. Awake and alert. No acute distress. HEENT: Normocephalic, atraumatic. PERRLA, EOMI. No conjunctival pallor. Sclera are non- icteric. Moist mucous membranes. Oropharynx is clear. NECK: Supple. Full ROM. No JVD. Carotid pulses 2+ and symmetric, without bruits. No thyromegaly. No lymphadenopathy. CARDIOVASCULAR: Regular rate and rhythm. No murmurs, rubs, or gallops. Distal pulses are 2+ and symmetric. PULMONARY: No evidence of respiratory distress. Lungs clear to auscultation bilaterally. No wheezing, rales or rhonchi. ABDOMINAL: Soft. Non-tender. Non-distended. No rebound or guarding. No organomegaly. Normoactive bowel sounds. MUSCULOSKELETAL Normal range of motion at all joints. No bony deformities or tenderness. No CVA tenderness. EXTREMITIES: No cyanosis. No clubbing. No edema. No calf tenderness. SKIN: Warm and dry. Normal capillary refill. No rashes. No jaundice. NEUROLOGICAL: Alert, awake, appropriate. Cranial nerves 2-12 intact. No deficits to light touch and temperature in face, upper extremities and lower extremities. No motor deficits in the in face, upper extremities and lower extremities. Normoreflexic in the upper and lower extremities. Normal speech. Toes are down- going bilaterally. Gait is normal without ataxia. PSYCHIATRIC: Cooperative. Good eye contact. Appropriate mood and affect. Medical Decision Making Patient reassessment: Patient has been noted to be walking and emergency department without difficulty or ataxic gait. Patient is able to communicate clearly and has straight clear mentation. I will discharge this patient to follow-up with outpatient PCP. Patient does not indicate desire at this time for detox. I discussed the physical exam findings, ancillary test results and final diagnoses with the patient. I answered all of the patient's questions. The patient was satisfied with the care received and felt comfortable with the discharge plan and treatment plan. The patient will call their primary care physician within 24 hours to arrange follow-up and will return to the Emergency Department with any new, persistent or worsening symptoms. Printed Discharge Instructions: DI for Alcohol Abuse Additional Instructions: Please follow-up with the included referral for PCP. Return to emergency room if shortness of breath, wheezing, fever greater than 101, chest pain, or fainting occurs. Past History - Past Medical History Allergies/Adverse Reactions: Allergies Allergy/AdvReac Type Severity Reaction Status Date / Time Fish Containing Products Allergy Mild Swelling Verified 10/20/17 15:24 No Known Drug Allergies Allergy Verified 10/20/17 15:24 Home Medications: Ambulatory Orders NK [No Known Home Medication] 07/27/17 Anemia: No Asthma: No Cancer: Yes (mesothelioma) Cardiac Disorders: No CVA: No COPD: No CHF: No DVT: No Dementia: No Diabetes: No GI Disorders: No Disorders: No HTN: Yes Hypercholesterolemia: No Kidney Stones: No Liver Disease: No Psychiatric Problems: Yes (alcoholism) Seizures: No Thyroid Disease: No - Surgical History Abdominal Surgery: No Appendectomy: No Cardiac Surgery: No Cholecystectomy: No Lung Surgery: No Neurologic Surgery: No Orthopedic Surgery: No - Family Disease History Family Disease History: CA: Mother - Reproductive History Testicular Surgery: No - Immunization History TDAP Vaccination: Yes Immunization Up to Date: Yes - Suicide/Smoking/Psychosocial Hx Smoking Status: No Smoking History: Never smoked Have you smoked in the past 12 months: No Number of Cigarettes Smoked Daily: 0 If you are a former smoker, when did you quit?: 0 Cigars Per Day: 0 'Breaking Loose' booklet given: 09/22/17 Hx Alcohol Use: Yes Drug/Substance Use Hx: No Substance Use Type: Alcohol Hx Substance Use Treatment: Yes Cardiac Specific PMH - Complaint Specific PMHX Abdominal Aortic Aneurysm: No Angina: No Cardiac Arrhythmia: No Cardiac Stent: No GERD: No Pacemaker: No Pulmonary Embolus: No Valvular Heart Disease: No Peripheral Vascular Disease: No *Physical Exam - Vital Signs Last Vital Signs Temp Pulse Resp BP Pulse Ox 97.7 F 90 18 140/88 93 L 10/25/17 02:36 10/25/17 06:52 10/25/17 06:52 10/25/17 06:52 10/25/17 02:36 ED Treatment Course - LABORATORY CBC & Chemistry Diagram: 10/25/17 02:06 10/25/17 02:06 - ADDITIONAL ORDERS Additional order review: Laboratory Results 10/25/17 02:06 Sodium 144 Potassium 3.2 L Chloride 103 Carbon Dioxide 31 Anion Gap 10 BUN 8 Creatinine 0.6 L Creat Clearance w eGFR > 60 Random Glucose 91 Calcium 8.1 L Total Bilirubin 0.3 D AST 40 H D ALT 23 Alkaline Phosphatase 99 Creatine Kinase 207 Creatine Kinase Index 2.5 CK-MB (CK-2) 5.217 H Troponin I < 0.02 Total Protein 6.7 Albumin 3.3 L 10/25/17 02:06 RBC 3.52 L MCV 83.3 MCHC 33.1 RDW 18.5 H MPV 7.0 L Neutrophils % 47.1 D Lymphocytes % 38.3 D Monocytes % 10.0 Eosinophils % 3.8 Basophils % 0.8 - Medications Given in the ED: ED Medications Discontinued Medications Generic Name Dose Route Start Last Admin Trade Name Freq PRN Reason Stop Dose Admin Sodium Chloride 1,000 mls @ 1,000 mls/hr 10/25/17 02:05 10/25/17 02:16 Normal Saline - IV 10/25/17 03:04 1,000 mls/hr ASDIR STA Administration Progress Note - Progress Note Progress Note: 0706hrs; Signed out to APPLE Oliver *DC/Admit/Observation/Transfer Diagnosis at time of Disposition: Atypical chest pain Alcohol dependence with intoxication Qualifiers: Complication of substance-induced condition: uncomplicated Qualified Code(s): F10.220 - Alcohol dependence with intoxication, uncomplicated Alcohol intoxication Qualifiers: Complication of substance-induced condition: uncomplicated Qualified Code(s): F10.920 - Alcohol use, unspecified with intoxication, uncomplicated - Discharge Dispostion Condition at time of disposition: Improved Decision to Admit order: No - Referrals Referrals: Blake Parks MD [Staff Physician] - - Patient Instructions Printed Discharge Instructions: DI for Atypical Chest Pain, DI for Alcohol Abuse Additional Instructions: Increase fluids Rest Alcohol abstinence Take Tylenol alternating with Motrin as needed for pain every 6 hours Return to the ER for severe/persistent or worsening symptoms - Post Discharge Activity
[2017-10-25 02:18] LABS: BASO % 0.8 % (0-2.0); EOS % 3.8 % (0-4.5); HEMATOCRIT 29.3 % (35.4-49); HEMOGLOBIN 9.7 GM/dL (11.7-16.9); LYMPH % 38.3 % (8-40); MCH 27.6 pg (25.7-33.7); MCHC 33.1 g/dl (32.0-35.9); MEAN CELL VOLUME 83.3 fl (80-96); NEUT % 47.1 % (42.8-82.8); PLATELET COUNT 196 K/MM3 (134-434); RBC 3.52 M/mm3 (4.00-5.60); RDW 18.5 % (11.9-15.9); WHITE BLOOD COUNT 4.4 K/mm3 (4.0-10.0)
[2017-10-25 02:38] VITALS: BMI 30.8
[2017-10-25 03:14] LABS: ALBUMIN 3.3 g/dl (3.4-5.0); ANION GAP 10 (8-16); BILIRUBIN,TOTAL 0.3 mg/dL (0.2-1.0); BLOOD UREA NITROGEN 8 mg/dL (7-18); CALCIUM 8.1 mg/dL (8.5-10.1); CHLORIDE 103 mmol/L (98-107); CO2 31 mmol/L (21-32); CREATININE 0.6 mg/dL (0.7-1.3); GLUCOSE,RANDOM 91 mg/dL (74-106); POTASSIUM 3.2 mmol/L (3.5-5.1); SGOT/AST 40 U/L (15-37); SGPT/ALT 23 U/L (12-78); SODIUM 144 mmol/L (136-145); TOT PROT 6.7 g/dl (6.4-8.2)
[2017-10-25 03:17] LABS: ALK PHOS 99 U/L (45-117)
[2017-10-25] MEDS ORDERED: ACETAMINOPHEN 325 MG TABLET (FP) PO ONE (08:53)
[2017-10-25] MEDS ORDERED: chlordiazePOXIDE HCL 25 MG CAPSULE PO ONE (08:53)
[2017-10-25 10:36] VITALS: BP 138/94; PULSE 82; TEMP 98
== END 2017-10-25 10:35 | disposition home or self-care (01) ==
LOC: JER 02:02
PROC: 3E0337Z Introduction of Electrolytic and Water Balance Substance into Peripheral Vein, Percutaneous Approach (ICD-10-PCS; principal; 2017-10-25)
DX: F10.220 Alcohol dependence with intoxication, uncomplicated (principal); I10 Essential (primary) hypertension; C45.9 Mesothelioma, unspecified; Z59.0 Homelessness
CPT/HCPCS: 36415; 80053; 82550; 82553; 84484; 85025; 96360; 99283-25; J7030

== ENCOUNTER 2017-10-26 11:47 | Emergency (ER) | payer OTHER ==
[2017-10-26 11:54] VITALS: BMI 30.7
--- NOTE | 2017-10-26 14:08 | PDOC ---
Rapid Medical Evaluation Chief Complaint: Alcohol intoxication Time Seen by Provider: 10/26/17 14:07 Medical Evaluation: Allergies Allergy/AdvReac Type Severity Reaction Status Date / Time Fish Containing Products Allergy Mild Swelling Verified 10/20/17 15:24 No Known Drug Allergies Allergy Verified 10/20/17 15:24 Vital Signs Temp Pulse Resp BP Pulse Ox 98.1 F 78 18 119/70 95 10/26/17 11:51 10/26/17 11:51 10/26/17 11:51 10/26/17 11:51 10/26/17 11:51 10/26/17 14:07 I have performed a brief in-person evaluation of this patient. The patient presents with a chief complaint of: ETOH use Pertinent physical exam findings: Lungs CTAB I have ordered the following: Nothing The patient will proceed to the ED for further evaluation. Discharge Disposition - Diagnosis Alcohol intoxication - Discharge Dispostion Last Admission D/C Date: 04/01/17 - Referrals - Patient Instructions - Post Discharge Activity
--- NOTE | 2017-10-26 15:10 | PDOC ---
History of Present Illness - General Chief Complaint: Alcohol intoxication Stated Complaint: INTOX Time Seen by Provider: 10/26/17 14:07 - History of Present Illness Initial Comments: 10/26/17 15:05 62 M with h/o ETOH abuse presenting to ED for ETOH intoxication. Pt admits to drinking today. Denies falling or sustaining any other injury. Denies any pain at this time. Now requesting food. Past History - Past Medical History Allergies/Adverse Reactions: Allergies Allergy/AdvReac Type Severity Reaction Status Date / Time Fish Containing Products Allergy Mild Swelling Verified 10/20/17 15:24 No Known Drug Allergies Allergy Verified 10/20/17 15:24 Home Medications: Ambulatory Orders NK [No Known Home Medication] 07/27/17 Anemia: No Asthma: No Cancer: Yes (mesothelioma) Cardiac Disorders: No CVA: No COPD: No CHF: No DVT: No Dementia: No Diabetes: No GI Disorders: No Disorders: No HTN: Yes Hypercholesterolemia: No Kidney Stones: No Liver Disease: No Psychiatric Problems: Yes (alcoholism) Seizures: No Thyroid Disease: No - Surgical History Abdominal Surgery: No Appendectomy: No Cardiac Surgery: No Cholecystectomy: No Lung Surgery: No Neurologic Surgery: No Orthopedic Surgery: No - Family Disease History Family Disease History: CA: Mother - Reproductive History Testicular Surgery: No - Immunization History TDAP Vaccination: Yes Immunization Up to Date: Yes - Suicide/Smoking/Psychosocial Hx Smoking Status: No Smoking History: Never smoked Have you smoked in the past 12 months: No Number of Cigarettes Smoked Daily: 0 If you are a former smoker, when did you quit?: 0 Cigars Per Day: 0 Information on smoking cessation initiated: No 'Breaking Loose' booklet given: 09/22/17 Hx Alcohol Use: Yes Drug/Substance Use Hx: No Substance Use Type: Alcohol Hx Substance Use Treatment: Yes Review of Systems - Review of Systems Comments:: 10/26/17 15:06 "GENERAL/CONSTITUTIONAL: No fever or chills. No weakness. HEAD, EYES, EARS, NOSE AND THROAT: No change in vision. No ear pain or discharge. No sore throat. CARDIOVASCULAR: No chest pain or shortness of breath. RESPIRATORY: No cough, wheezing, or hemoptysis. GASTROINTESTINAL: No nausea, vomiting, diarrhea or constipation. GENITOURINARY: No dysuria, frequency, or change in urination. MUSCULOSKELETAL: No joint or muscle swelling or pain. No neck or back pain. SKIN: No rash NEUROLOGIC: No headache, vertigo, loss of consciousness, or change in strength/ sensation. ENDOCRINE: No increased thirst. No abnormal weight change. HEMATOLOGIC/LYMPHATIC: No anemia, easy bleeding, or history of blood clots. ALLERGIC/IMMUNOLOGIC: No hives or skin allergy. " *Physical Exam - Vital Signs Last Vital Signs Temp Pulse Resp BP Pulse Ox 98.1 F 78 18 119/70 95 10/26/17 11:51 10/26/17 11:51 10/26/17 11:51 10/26/17 11:51 10/26/17 11:51 - Physical Exam Comments: 10/26/17 15:06 "GENERAL: Awake, alert, and fully oriented, in no acute distress. HEAD: No signs of trauma EYES: PERRLA, EOMI, sclera anicteric, conjunctiva clear ENT: Auricles normal inspection, hearing grossly normal, nares patent, oropharynx clear without exudates. Moist mucosa NECK: Nontender, no stepoffs, Normal ROM, supple, no lymphadenopathy, JVD, or masses LUNGS: Breath sounds equal, clear to auscultation bilaterally. No wheezes, and no crackles HEART: Regular rate and rhythm, normal S1 and S2, no murmurs, rubs or gallops ABDOMEN: Soft, nontender, normoactive bowel sounds. No guarding, no rebound. No masses EXTREMITIES: Normal range of motion, no edema. No clubbing or cyanosis. No cords, erythema, or tenderness NEUROLOGICAL: Cranial nerves II through XII intact. 5/5 strength and sensation in all extremities SKIN: Warm, Dry, normal turgor, no rashes or lesions noted. Medical Decision Making - Medical Decision Making 10/26/17 15:10 62 M presenting for ETOH intox. Now clinically sober upon my exam. Pt ambulatory with steady gait, tolerating PO. Stable for DC. Pt is well appearing, with normal vitals. Clinically stable for DC at this time. I discussed the physical exam findings, ancillary test results and final diagnoses with the patient. I answered all of the patient's questions. The patient was satisfied with the care received and felt comfortable with the discharge plan and treatment plan. The patient agrees to follow up with the primary care physician within 24-72 hours. *DC/Admit/Observation/Transfer Diagnosis at time of Disposition: Alcohol intoxication - Discharge Dispostion Disposition: HOME - Referrals - Patient Instructions Printed Discharge Instructions: DI for Alcohol Abuse - Post Discharge Activity - Attestations Physician Attestion: 10/26/17 15:11 I, Dr. Jamal Rodriges MD, attest that this document has been prepared under my direction and personally reviewed by me in its entirety. I further attest, that it accurately reflects all work, treatment, procedures and medical decision -making performed by me.
[2017-10-26 17:31] VITALS: BP 112/73; PULSE 74; TEMP 98
== END 2017-10-26 14:33 | disposition home or self-care (01) ==
LOC: JER 11:47
DX: F10.220 Alcohol dependence with intoxication, uncomplicated (principal); I10 Essential (primary) hypertension; C45.9 Mesothelioma, unspecified; Z59.0 Homelessness
CPT/HCPCS: 99282-25

== ENCOUNTER 2017-10-28 17:11 | Emergency (ER) | payer OTHER ==
[2017-10-28 17:42] VITALS: BP 126/80; PULSE 78; TEMP 97; BMI 31.5
--- NOTE | 2017-10-28 17:51 | PDOC ---
History of Present Illness - General Chief Complaint: Alcohol intoxication Stated Complaint: INTOX Time Seen by Provider: 10/28/17 17:46 History Source: Patient Exam Limitations: No Limitations - History of Present Illness Initial Comments: 10/28/17 17:58 Mr De Leon is a 62 yo M well known to the ER He presented again via EMS due to intoxication He has no other complaints to me at this time He is tearful Considering that he would like to go to Detox GENERAL/CONSTITUTIONAL: No: fever, chills, weakness, loss of appetite. HEAD, EYES, EARS, NOSE AND THROAT: No: change in vision, ear pain, discharge, sore throat, throat swelling. CARDIOVASCULAR: No: chest pain, lightheadedness, palpitations, syncope RESPIRATORY: No: cough, shortness of breath, wheezing, hemoptysis, stridor. GASTROINTESTINAL: No: nausea, vomiting, diarrhea, abdominal pain GENITOURINARY: No: dysuria, hematuria, frequency, urgency, flank pain. MUSCULOSKELETAL: No: back pain, neck pain, joint pain, muscle swelling or pain SKIN : No: lesions, pallor, rash or easy bruising. NEUROLOGIC: No: headache, vertigo, paresthesias, weakness ENDOCRINE: No: unexplained weight gain or loss HEMATOLOGIC/LYMPHATIC: No: anemia, easy bleeding, swelling nodes. 09/14/17 15:49 GENERAL: The patient is in no acute distress, malodorous, tearful HEAD: Old signs of trauma, frontal scab, nasal bridge scab EYES: PERRLA, EOMI ENT: Ears normal, nares patent, oropharynx clear without exudates. Moist mucous membranes. NECK: Normal range of motion LUNGS: Breath sounds equal, clear to auscultation bilaterally. Rhoncherous breath sounds, exp wheezing HEART:Regular rate and rhythm ABDOMEN: Soft, nontender EXTREMITIES: Normal range of motion, no edema. No clubbing or cyanosis. No erythema, or tenderness. NEUROLOGICAL: Cranial nerves II through XII grossly intact. Normal speech. No focal neurological deficits. 10/28/17 18:09 Past History - Past Medical History Allergies/Adverse Reactions: Allergies Allergy/AdvReac Type Severity Reaction Status Date / Time Fish Containing Products Allergy Mild Swelling Verified 10/28/17 17:41 No Known Drug Allergies Allergy Verified 10/28/17 17:41 Home Medications: Ambulatory Orders NK [No Known Home Medication] 07/27/17 Anemia: No Asthma: No Cancer: Yes (mesothelioma) Cardiac Disorders: No CVA: No COPD: No CHF: No DVT: No Dementia: No Diabetes: No GI Disorders: No Disorders: No HTN: Yes Hypercholesterolemia: No Kidney Stones: No Liver Disease: No Psychiatric Problems: Yes (alcoholism) Seizures: No Thyroid Disease: No - Surgical History Abdominal Surgery: No Appendectomy: No Cardiac Surgery: No Cholecystectomy: No Lung Surgery: No Neurologic Surgery: No Orthopedic Surgery: No - Family Disease History Family Disease History: CA: Mother - Reproductive History Testicular Surgery: No - Immunization History TDAP Vaccination: Yes Immunization Up to Date: Yes - Suicide/Smoking/Psychosocial Hx Smoking Status: No Smoking History: Never smoked Have you smoked in the past 12 months: No Number of Cigarettes Smoked Daily: 0 If you are a former smoker, when did you quit?: 0 Cigars Per Day: 0 Information on smoking cessation initiated: No 'Breaking Loose' booklet given: 09/22/17 Hx Alcohol Use: No Drug/Substance Use Hx: No Substance Use Type: Alcohol Hx Substance Use Treatment: Yes *Physical Exam - Vital Signs Last Vital Signs Temp Pulse Resp BP Pulse Ox 97 F L 78 18 126/80 95 10/28/17 17:11 10/28/17 17:11 10/28/17 17:11 10/28/17 17:11 10/28/17 17:11 Medical Decision Making - Medical Decision Making 10/28/17 18:08 Mr. De Leon is a 62-year-old male who is well-known to the emergency department, history of alcohol abuse who presents emergency department because of alcohol intoxication He wants to go to detox Call placed to [facility] There are no more male beds Will plan to discharge when no longer intoxicated and pt is stable to go home *DC/Admit/Observation/Transfer Diagnosis at time of Disposition: Alcohol dependence with uncomplicated intoxication - Discharge Dispostion Condition at time of disposition: Stable Decision to Admit order: No - Referrals Referrals: Garima Bridges MD [Primary Care Provider] - - Patient Instructions Printed Discharge Instructions: DI for Alcohol Abuse - Post Discharge Activity
== END 2017-10-29 06:18 | disposition home or self-care (01) ==
LOC: JER 17:11
DX: F12.20 Cannabis dependence, uncomplicated (principal); F10.220 Alcohol dependence with intoxication, uncomplicated; I10 Essential (primary) hypertension; C45.9 Mesothelioma, unspecified; Z59.0 Homelessness
CPT/HCPCS: 99283-25

== ENCOUNTER 2017-10-30 11:40 | Emergency (ER) | payer OTHER ==
[2017-10-30 12:04] VITALS: BP 127/53; PULSE 82; TEMP 98.3; BMI 29.7
--- NOTE | 2017-10-30 12:17 | PDOC ---
History of Present Illness - General History Source: Patient Exam Limitations: Intoxication - History of Present Illness Initial Comments: 10/30/17 12:53 The patient is a 62 year old male who is well known to the ED with a significant PMH of mesothelioma and chronic alcoholism who presents to the emergency department with alcohol intoxication. The patient denies any pain or other complaints. This history is limited secondary to the patients intoxication. Allergies: NKDA Past surgical history: None reported. Social history: Alcohol abuse. No reported cigarette or drug use. PCP: Dr. Garima Bridges <Nitish Bonilla - Last Filed: 10/30/17 12:53> <Fernie Rosenthal - Last Filed: 10/30/17 18:48> - General Chief Complaint: Alcohol intoxication Stated Complaint: Alcohol intoxication Time Seen by Provider: 10/30/17 12:04 Past History <Nitish Bonilla - Last Filed: 10/30/17 12:53> - Past Medical History Anemia: No Asthma: No Cancer: Yes (mesothelioma) Cardiac Disorders: No CVA: No COPD: No CHF: No DVT: No Dementia: No Diabetes: No GI Disorders: No Disorders: No HTN: Yes Hypercholesterolemia: No Kidney Stones: No Liver Disease: No Psychiatric Problems: Yes (alcoholism) Seizures: No Thyroid Disease: No - Surgical History Abdominal Surgery: No Appendectomy: No Cardiac Surgery: No Cholecystectomy: No Lung Surgery: No Neurologic Surgery: No Orthopedic Surgery: No - Family Disease History Family Disease History: CA: Mother - Reproductive History Testicular Surgery: No - Immunization History TDAP Vaccination: Yes Immunization Up to Date: Yes - Suicide/Smoking/Psychosocial Hx Smoking Status: No Smoking History: Never smoked Have you smoked in the past 12 months: No Number of Cigarettes Smoked Daily: 0 If you are a former smoker, when did you quit?: 0 Cigars Per Day: 0 'Breaking Loose' booklet given: 09/22/17 Hx Alcohol Use: Yes Drug/Substance Use Hx: No Substance Use Type: Alcohol Hx Substance Use Treatment: Yes <Fernie Rosenthal - Last Filed: 10/30/17 18:48> - Past Medical History Allergies/Adverse Reactions: Allergies Allergy/AdvReac Type Severity Reaction Status Date / Time Fish Containing Products Allergy Mild Swelling Verified 10/30/17 11:54 No Known Drug Allergies Allergy Verified 10/30/17 11:54 Home Medications: Ambulatory Orders NK [No Known Home Medication] 07/27/17 Review of Systems - Review of Systems Able to Perform ROS?: No (Intox) <Nitish Bonilla - Last Filed: 10/30/17 12:53> *Physical Exam - Vital Signs Last Vital Signs Temp Pulse Resp BP Pulse Ox 98.3 F 82 16 127/53 99 10/30/17 11:40 10/30/17 11:40 10/30/17 11:40 10/30/17 11:40 10/30/17 11:40 - Physical Exam Comments: 10/30/17 12:53 GENERAL: (+) Intoxicated. Awake, alert, in no acute distress HEAD: No signs of trauma EYES: PERRLA, EOMI, sclera anicteric, conjunctiva clear ENT: Auricles normal inspection, hearing grossly normal, nares patent, oropharynx clear without exudates. Moist mucosa NECK: Normal ROM, supple, no lymphadenopathy, JVD, or masses LUNGS: Breath sounds equal, clear to auscultation bilaterally. No wheezes, and no crackles HEART: Regular rate and rhythm, normal S1 and S2, no murmurs, rubs or gallops ABDOMEN: Soft, nontender, normoactive bowel sounds. No guarding, no rebound. No masses EXTREMITIES: Normal range of motion, no edema. No clubbing or cyanosis. No cords , erythema, or tenderness BACK: No midline spinal tenderness in cervical/thoracic/lumbar region NEUROLOGICAL: cranial nerves intact, negative pronator drift, 5/5 strength in all 4 extremities, normal sensation to light touch in all 4 extremities, normal cerebellar exam, normal reflexes and tone SKIN: Warm, Dry, normal turgor, no rashes or lesions noted. <Nitish Bonilla - Last Filed: 10/30/17 12:53> - Vital Signs Last Vital Signs Temp Pulse Resp BP Pulse Ox 98.3 F 82 16 127/53 99 10/30/17 11:40 10/30/17 11:40 10/30/17 11:40 10/30/17 11:40 10/30/17 11:40 <Fernie Rosenthal - Last Filed: 10/30/17 18:48> Medical Decision Making - Medical Decision Making 10/30/17 12:15 62-year-old male well-known to this emergency Department for frequent presentations with alcohol intoxication presents to the emergency department with alcohol intoxication. No evidence of trauma at this time. Will allow pt to metabolize and reassess. 10/30/17 18:43 Pt is clinically sober. No evidence of injuries/trauma on re-exam. Pt is well appearing tolerating PO, ambulating with a steady gait. I discussed the physical exam findings, ancillary test results and final diagnoses with the patient. I answered all of the patient's questions. The patient was satisfied with the care received and felt comfortable with the discharge plan and treatment plan. The patient will call their primary care physician within 24 hours to arrange follow-up and will return to the Emergency Department with any new, persistent or worsening symptoms. <Fernie Rosenthal - Last Filed: 10/30/17 18:48> *DC/Admit/Observation/Transfer - Attestations Scribe Attestion: 10/30/17 12:55 Documentation prepared by Nitish Bonilla, acting as biomedical scientist for Fernie Rosenthal MD. <Nitish Bonilla - Last Filed: 10/30/17 12:53> - Discharge Dispostion Decision to Admit order: No - Attestations Physician Attestion: 10/30/17 18:47 I, Dr. Fernie Rosenthal MD, attest that this document has been prepared under my direction and personally reviewed by me in its entirety. I further attest, that it accurately reflects all work, treatment, procedures and medical decision -making performed by me. <Fernie Rosenthal - Last Filed: 10/30/17 18:48> Diagnosis at time of Disposition: Intoxication - Discharge Dispostion Disposition: HOME Condition at time of disposition: Stable - Patient Instructions Printed Discharge Instructions: DI for Alcohol Abuse Additional Instructions: Follow up with your primary doctor within 1 week. Return to the emergency department if you have any new, worsening, or concerning symptoms
== END 2017-10-30 19:00 | disposition home or self-care (01) ==
LOC: JER 11:40
DX: F10.220 Alcohol dependence with intoxication, uncomplicated (principal); I10 Essential (primary) hypertension; C45.9 Mesothelioma, unspecified; Z59.0 Homelessness
CPT/HCPCS: 99281-25

== ENCOUNTER 2017-10-30 21:49 | Emergency (ER) | payer OTHER ==
--- NOTE | 2017-10-30 21:58 | PDOC ---
Rapid Medical Evaluation Time Seen by Provider: 10/30/17 21:54 Medical Evaluation: Allergies Allergy/AdvReac Type Severity Reaction Status Date / Time Fish Containing Products Allergy Mild Swelling Verified 10/30/17 11:54 No Known Drug Allergies Allergy Verified 10/30/17 11:54 10/30/17 21:55 I have performed a brief in-person evaluation of this patient. The patient presents with a chief complaint of: ETOH intoxication Pertinent physical exam findings: AOB. No obvious signs of trauma I have ordered the following: nothing The patient will proceed to the ED for further evaluation. Discharge Disposition - Diagnosis Intoxication - Referrals - Patient Instructions - Post Discharge Activity
--- NOTE | 2017-10-30 22:15 | PDOC ---
History of Present Illness - General Stated Complaint: PAIN,INTOX Time Seen by Provider: 10/30/17 21:54 History Source: Patient Exam Limitations: Intoxication - History of Present Illness Initial Comments: 10/30/17 22:21 Patients Doctor(s): PCP none History of Present Illness: 62-year-old male with past mental history of mesothelioma with long history of EtOH abuse and multiple ER visits and admission secondary to EtOH abuse is presented to the emergency department by EMS secondary to public intoxication. Patient presently states that he is experiencing pain to his back s/p picking up a quarter on the sidewalk. Patient is not slurring his speech at this time but is unstable in gait has alcohol on breath. Patient is presently able to deny chest pain, back pain, dizziness, blurred vision, nausea/vomiting, diarrhea , constipation, fever or chills. Patient denies use of any [id number] medication for the treatment of this complaint. Patient denies any sick contacts , travel outside the [place] or contact with any sick individuals who have been outside the [place] [facility]. Patient at this time expressed grief and remorse at the loss of his son who is a [employer] military police officer. The patient was somnolent and tearful. He is not suicidal or homicidal at this time. I will observe this patient. Review of Systems: GENERAL/CONSTITUTIONAL: No fever or chills. No weakness. No weight change. HEAD, EYES, EARS, NOSE AND THROAT: No change in vision. No ear pain or discharge. No sore throat. CARDIOVASCULAR: No chest pain or shortness of breath. RESPIRATORY: No cough, wheezing, or hemoptysis. GASTROINTESTINAL: No nausea, vomiting, diarrhea or constipation. No rectal bleeding. GENITOURINARY: No dysuria, frequency, or change in urination. MUSCULOSKELETAL: Lower back pain SKIN AND BREASTS: No rash or easy bruising. NEUROLOGIC: No headache, vertigo, loss of consciousness, or loss of sensation. PSYCHIATRIC: EtOH abuse, No depression or anxiety. ENDOCRINE: No increased thirst. No abnormal weight change. HEMATOLOGIC/LYMPHATIC: No anemia, easy bleeding, or history of blood clots. ALLERGIC/IMMUNOLOGIC: No hives or skin allergy. No latex allergy. Past Medical History: Mesothelioma Family History: Mother with cancer Social History: EtOH abuse Surgical history: Denies Allergies: No known drug allergies Past History - Past Medical History Allergies/Adverse Reactions: Allergies Allergy/AdvReac Type Severity Reaction Status Date / Time Fish Containing Products Allergy Mild Swelling Verified 10/30/17 11:54 No Known Drug Allergies Allergy Verified 10/30/17 11:54 Home Medications: Ambulatory Orders NK [No Known Home Medication] 07/27/17 Anemia: No Asthma: No Cancer: Yes (mesothelioma) Cardiac Disorders: No CVA: No COPD: No CHF: No DVT: No Dementia: No Diabetes: No GI Disorders: No Disorders: No HTN: Yes Hypercholesterolemia: No Kidney Stones: No Liver Disease: No Psychiatric Problems: Yes (alcoholism) Seizures: No Thyroid Disease: No - Surgical History Abdominal Surgery: No Appendectomy: No Cardiac Surgery: No Cholecystectomy: No Lung Surgery: No Neurologic Surgery: No Orthopedic Surgery: No - Family Disease History Family Disease History: CA: Mother - Reproductive History Testicular Surgery: No - Immunization History TDAP Vaccination: Yes Immunization Up to Date: Yes - Suicide/Smoking/Psychosocial Hx Smoking Status: No Smoking History: Never smoked Have you smoked in the past 12 months: No Number of Cigarettes Smoked Daily: 0 If you are a former smoker, when did you quit?: 0 Cigars Per Day: 0 'Breaking Loose' booklet given: 09/22/17 Hx Alcohol Use: Yes Drug/Substance Use Hx: No Substance Use Type: Alcohol Hx Substance Use Treatment: Yes *Physical Exam - Physical Exam General Appearance: Yes: Disheveled, Alcohol on Breath. No: Apparent Distress HEENT: positive: Normal ENT Inspection Neck: positive: Trachea midline, Supple Respiratory/Chest: positive: Lungs Clear, Normal Breath Sounds. negative: Respiratory Distress, Accessory Muscle Use Cardiovascular: positive: Regular Rhythm, Regular Rate. negative: Murmur Gastrointestinal/Abdominal: positive: Normal Bowel Sounds, Soft. negative: Tender Musculoskeletal: positive: Normal Inspection. negative: CVA Tenderness Extremity: positive: Normal Inspection Integumentary: positive: Normal Color, Dry, Warm Neurologic: positive: Alert, Normal Response, Motor Strength 5/5 Medical Decision Making - Medical Decision Making 10/30/17 22:23 A/p: Patient is a male with history of mesothelioma and EtOH abuse presented to the emergency department by EMS secondary to public intoxication. Patient complaining of pain to his lower back. I will observe patient in the emergency department until clinical sobriety is assessed. 10/31/17 01:49 Pt continues to rest comfortably. No s/s ETOH withdrawal present. I will continue to monitor. 10/31/17 04:21 Patient is requesting discharge. No signs and symptoms of withdrawal alert and oriented 3. Patient encouraged to keep well-hydrated and to eat a Well- balanced diet. Alcohol avoidance was discussed with patient. *DC/Admit/Observation/Transfer Diagnosis at time of Disposition: Intoxication - Discharge Dispostion Disposition: HOME Condition at time of disposition: Fair Decision to Admit order: No - Referrals - Patient Instructions Additional Instructions: Avoid alcohol. Drink plenty of nonalcoholic fluids. Eat a well-balanced diet. Return to emergency department for any concerns. - Post Discharge Activity
[2017-10-30 22:38] VITALS: BP 134/65; PULSE 88; TEMP 98.2; BMI 24.2
== END 2017-10-31 04:24 | disposition home or self-care (01) ==
LOC: JER 21:49
DX: F10.220 Alcohol dependence with intoxication, uncomplicated (principal); I10 Essential (primary) hypertension; C45.9 Mesothelioma, unspecified; Z59.0 Homelessness; Z71.41 Alcohol abuse counseling and surveillance of alcoholic
CPT/HCPCS: 99281-25

== ENCOUNTER 2017-11-01 15:24 | Emergency (ER) | payer OTHER ==
[2017-11-01 15:41] VITALS: BP 121/74; PULSE 102; TEMP 98.7; BMI 36.9
--- NOTE | 2017-11-01 16:54 | PDOC ---
History of Present Illness - General Chief Complaint: Alcohol intoxication Stated Complaint: INTOXICATION Time Seen by Provider: 11/01/17 16:15 - History of Present Illness Initial Comments: 11/01/17 16:52 62 M well known to this ED, presents intoxicated. Pt admits to drinking today, denies any other substance use. Denies trauma or falls. Upon my evaluation pt asking to leave. Past History - Past Medical History Allergies/Adverse Reactions: Allergies Allergy/AdvReac Type Severity Reaction Status Date / Time Fish Containing Products Allergy Mild Swelling Verified 10/30/17 11:54 No Known Drug Allergies Allergy Verified 10/30/17 11:54 Home Medications: Ambulatory Orders NK [No Known Home Medication] 07/27/17 Anemia: No Asthma: No Cancer: Yes (mesothelioma) Cardiac Disorders: No CVA: No COPD: No CHF: No DVT: No Dementia: No Diabetes: No GI Disorders: No Disorders: No HTN: Yes Hypercholesterolemia: No Kidney Stones: No Liver Disease: No Psychiatric Problems: Yes (alcoholism) Seizures: No Thyroid Disease: No - Surgical History Abdominal Surgery: No Appendectomy: No Cardiac Surgery: No Cholecystectomy: No Lung Surgery: No Neurologic Surgery: No Orthopedic Surgery: No - Family Disease History Family Disease History: CA: Mother - Reproductive History Testicular Surgery: No - Immunization History TDAP Vaccination: Yes Immunization Up to Date: Yes - Suicide/Smoking/Psychosocial Hx Smoking Status: No Smoking History: Never smoked Have you smoked in the past 12 months: No Number of Cigarettes Smoked Daily: 0 If you are a former smoker, when did you quit?: 0 Cigars Per Day: 0 Information on smoking cessation initiated: No 'Breaking Loose' booklet given: 09/22/17 Hx Alcohol Use: Yes Drug/Substance Use Hx: No Substance Use Type: Alcohol Hx Substance Use Treatment: Yes Review of Systems - Review of Systems Comments:: 11/01/17 16:53 "GENERAL/CONSTITUTIONAL: No fever or chills. No weakness. HEAD, EYES, EARS, NOSE AND THROAT: No change in vision. No ear pain or discharge. No sore throat. CARDIOVASCULAR: No chest pain or shortness of breath. RESPIRATORY: No cough, wheezing, or hemoptysis. GASTROINTESTINAL: No nausea, vomiting, diarrhea or constipation. GENITOURINARY: No dysuria, frequency, or change in urination. MUSCULOSKELETAL: No joint or muscle swelling or pain. No neck or back pain. SKIN: No rash NEUROLOGIC: No headache, vertigo, loss of consciousness, or change in strength/ sensation. ENDOCRINE: No increased thirst. No abnormal weight change. HEMATOLOGIC/LYMPHATIC: No anemia, easy bleeding, or history of blood clots. ALLERGIC/IMMUNOLOGIC: No hives or skin allergy. " *Physical Exam - Vital Signs Last Vital Signs Temp Pulse Resp BP Pulse Ox 98.7 F 102 H 20 121/74 92 L 11/01/17 15:39 11/01/17 15:39 11/01/17 15:39 11/01/17 15:39 11/01/17 15:39 - Physical Exam Comments: 11/01/17 16:53 "GENERAL: Awake, alert, and fully oriented, mildly intoxicated HEAD: No signs of trauma EYES: PERRLA, EOMI, sclera anicteric, conjunctiva clear ENT: Auricles normal inspection, hearing grossly normal, nares patent, oropharynx clear without exudates. Moist mucosa NECK: Nontender, no stepoffs, Normal ROM, supple, no lymphadenopathy, JVD, or masses LUNGS: Breath sounds equal, clear to auscultation bilaterally. No wheezes, and no crackles HEART: Regular rate and rhythm, normal S1 and S2, no murmurs, rubs or gallops ABDOMEN: Soft, nontender, normoactive bowel sounds. No guarding, no rebound. No masses EXTREMITIES: Normal range of motion, no edema. No clubbing or cyanosis. No cords, erythema, or tenderness NEUROLOGICAL: Cranial nerves II through XII intact. 5/5 strength and sensation in all extremities, Normal speech, normal gait, normal cerebellar function SKIN: Warm, Dry, normal turgor, no rashes or lesions noted. " Medical Decision Making - Medical Decision Making 11/01/17 16:53 62 M with ETOH intoxication. No signs of trauma on exam. Pt still clinically intoxicated at time of evaluation. - Allow to metabolize - Reassess 11/01/17 18:10 Pt reassessed, now clinically sober. Pt is well appearing, ambulatory with steady gait. Clinically stable for DC at this time. I discussed the physical exam findings, ancillary test results and final diagnoses with the patient. I answered all of the patient's questions. The patient was satisfied with the care received and felt comfortable with the discharge plan and treatment plan. The patient agrees to follow up with the primary care physician within 24-72 hours. *DC/Admit/Observation/Transfer Diagnosis at time of Disposition: Intoxication - Discharge Dispostion Disposition: HOME - Referrals - Patient Instructions - Post Discharge Activity - Attestations Physician Attestion: 11/03/17 00:11 I, Dr. Jamal Rodriges MD, attest that this document has been prepared under my direction and personally reviewed by me in its entirety. I further attest, that it accurately reflects all work, treatment, procedures and medical decision -making performed by me.
== END 2017-11-03 12:22 | disposition home or self-care (01) ==
LOC: JER 15:24
DX: F10.220 Alcohol dependence with intoxication, uncomplicated (principal); I10 Essential (primary) hypertension; C45.9 Mesothelioma, unspecified; Z59.0 Homelessness
CPT/HCPCS: 99281-25

== ENCOUNTER 2017-11-13 18:21 | Emergency (ER) | payer OTHER ==
[2017-11-13 18:32] VITALS: BMI 31.5
--- NOTE | 2017-11-13 19:31 | PDOC ---
History of Present Illness - General Chief Complaint: Alcohol intoxication Stated Complaint: ALCOHOL INTOX Time Seen by Provider: 11/13/17 19:16 History Source: Patient, Old Records Exam Limitations: Intoxication - History of Present Illness Initial Comments: 11/13/17 19:31 Patients Doctor(s): PCP none History of Present Illness: 62-year-old male with past mental history of mesothelioma with long history of EtOH abuse and multiple ER visits and admission secondary to EtOH abuse is presented to the emergency department by EMS secondary to public intoxication. Patient presently states that he is experiencing pain to his lower back. Patient is not slurring his speech at this time but is unstable in gait and is intoxicated. Patient is presently able to deny chest pain, back pain, dizziness , blurred vision, nausea/vomiting, diarrhea, constipation, fever or chills. Patient denies use of any [id number] medication for the treatment of this complaint. Patient denies any sick contacts, travel outside the [place] or contact with any sick individuals who have been outside the [place]. Review of Systems: GENERAL/CONSTITUTIONAL: No fever or chills. No weakness. No weight change. HEAD, EYES, EARS, NOSE AND THROAT: No change in vision. No ear pain or discharge. No sore throat. CARDIOVASCULAR: No chest pain or shortness of breath. RESPIRATORY: No cough, wheezing, or hemoptysis. GASTROINTESTINAL: No nausea, vomiting, diarrhea or constipation. No rectal bleeding. GENITOURINARY: No dysuria, frequency, or change in urination. MUSCULOSKELETAL: No joint or muscle swelling or pain. No neck or back pain. SKIN AND BREASTS: No rash or easy bruising. NEUROLOGIC: No headache, vertigo, loss of consciousness, or loss of sensation. PSYCHIATRIC: EtOH abuse, No depression or anxiety. ENDOCRINE: No increased thirst. No abnormal weight change. HEMATOLOGIC/LYMPHATIC: No anemia, easy bleeding, or history of blood clots. ALLERGIC/IMMUNOLOGIC: No hives or skin allergy. No latex allergy. Past Medical History: Mesothelioma Family History: Mother with cancer Social History: EtOH abuse Surgical history: Denies Allergies: No known drug allergies Past History - Past Medical History Allergies/Adverse Reactions: Allergies Allergy/AdvReac Type Severity Reaction Status Date / Time Fish Containing Products Allergy Mild Swelling Verified 10/30/17 11:54 No Known Drug Allergies Allergy Verified 10/30/17 11:54 Home Medications: Ambulatory Orders NK [No Known Home Medication] 07/27/17 Anemia: No Asthma: No Cancer: Yes (mesothelioma) Cardiac Disorders: No CVA: No COPD: No CHF: No DVT: No Dementia: No Diabetes: No GI Disorders: No Disorders: No HTN: Yes Hypercholesterolemia: No Kidney Stones: No Liver Disease: No Psychiatric Problems: Yes (alcoholism) Seizures: No Thyroid Disease: No - Surgical History Abdominal Surgery: No Appendectomy: No Cardiac Surgery: No Cholecystectomy: No Lung Surgery: No Neurologic Surgery: No Orthopedic Surgery: No - Family Disease History Family Disease History: CA: Mother - Reproductive History Testicular Surgery: No - Immunization History TDAP Vaccination: Yes Immunization Up to Date: Yes - Suicide/Smoking/Psychosocial Hx Smoking Status: No Smoking History: Never smoked Have you smoked in the past 12 months: No Number of Cigarettes Smoked Daily: 0 If you are a former smoker, when did you quit?: 0 Cigars Per Day: 0 Information on smoking cessation initiated: No 'Breaking Loose' booklet given: 09/22/17 Hx Alcohol Use: Yes Drug/Substance Use Hx: No Substance Use Type: Alcohol Hx Substance Use Treatment: Yes *Physical Exam - Vital Signs Last Vital Signs Temp Pulse Resp BP Pulse Ox 97.7 F 88 18 110/72 100 11/13/17 18:30 11/13/17 18:30 11/13/17 18:30 11/13/17 18:30 11/13/17 18:30 Medical Decision Making - Medical Decision Making 11/13/17 19:31 A/P: Patient is a male with history of mesothelioma and EtOH abuse presented to the emergency department by EMS secondary to public intoxication. I will observe patient in the emergency department clinical sobriety is assessed. 11/14/17 00:20 Patient has achieved clinical sobriety. I will discharge the patient. *DC/Admit/Observation/Transfer Diagnosis at time of Disposition: Alcohol dependence with uncomplicated intoxication - Discharge Dispostion Disposition: HOME Condition at time of disposition: Fair Decision to Admit order: No - Referrals - Patient Instructions Additional Instructions: Avoid alcohol use Eat well-balanced meals Keep well-hydrated. Return to emergency department for any concerns. - Post Discharge Activity
[2017-11-14 01:01] VITALS: BP 138/88; PULSE 89; TEMP 98.4
== END 2017-11-14 00:59 | disposition home or self-care (01) ==
LOC: JER 18:21
DX: F10.220 Alcohol dependence with intoxication, uncomplicated (principal); I10 Essential (primary) hypertension; C45.9 Mesothelioma, unspecified; Z59.0 Homelessness
CPT/HCPCS: 99283-25

== ENCOUNTER 2017-11-17 16:38 | Emergency (ER) | payer OTHER ==
[2017-11-17 16:47] VITALS: BP 133/77; PULSE 78; TEMP 97.8; BMI 33.7
--- NOTE | 2017-11-17 19:27 | PDOC ---
History of Present Illness - General Chief Complaint: Alcohol intoxication Stated Complaint: Alcohol intoxication Time Seen by Provider: 11/17/17 17:06 - History of Present Illness Initial Comments: 11/17/17 19:24 62 yo male well known to department and myself with near daily assessment for etoh intoxication here today with same. pt currently has no complaints. states he was drinking does not provide additional history. denies ay trauma. Past History - Past Medical History Allergies/Adverse Reactions: Allergies Allergy/AdvReac Type Severity Reaction Status Date / Time Fish Containing Products Allergy Mild Swelling Verified 10/30/17 11:54 No Known Drug Allergies Allergy Verified 10/30/17 11:54 Home Medications: Ambulatory Orders NK [No Known Home Medication] 07/27/17 Anemia: No Asthma: No Cancer: Yes (mesothelioma) Cardiac Disorders: No CVA: No COPD: No CHF: No DVT: No Dementia: No Diabetes: No GI Disorders: No Disorders: No HTN: Yes Hypercholesterolemia: No Kidney Stones: No Liver Disease: No Psychiatric Problems: Yes (alcoholism) Seizures: No Thyroid Disease: No - Surgical History Abdominal Surgery: No Appendectomy: No Cardiac Surgery: No Cholecystectomy: No Lung Surgery: No Neurologic Surgery: No Orthopedic Surgery: No - Family Disease History Family Disease History: CA: Mother - Reproductive History Testicular Surgery: No - Immunization History TDAP Vaccination: Yes Immunization Up to Date: Yes - Suicide/Smoking/Psychosocial Hx Smoking Status: No Smoking History: Never smoked Have you smoked in the past 12 months: No Number of Cigarettes Smoked Daily: 0 If you are a former smoker, when did you quit?: 0 Cigars Per Day: 0 'Breaking Loose' booklet given: 09/22/17 Hx Alcohol Use: Yes Drug/Substance Use Hx: No Substance Use Type: Alcohol Hx Substance Use Treatment: Yes Review of Systems - Review of Systems Constitutional: No: Chills, Diaphoresis HEENTM: No: Difficulty Swallowing Cardiac (ROS): No: Chest Pain, Edema Integumentary: No: Bruising All Other Systems: Reviewed and Negative *Physical Exam - Vital Signs Last Vital Signs Temp Pulse Resp BP Pulse Ox 97.8 F 78 18 133/77 95 11/17/17 16:40 11/17/17 16:40 11/17/17 16:40 11/17/17 16:40 11/17/17 16:40 - Physical Exam General Appearance: Yes: Intoxicated HEENT: positive: Other (atraumatic) Neck: positive: Trachea midline Respiratory/Chest: positive: Lungs Clear, Normal Breath Sounds Cardiovascular: positive: Regular Rhythm, Regular Rate, S1, S2. negative: Edema Gastrointestinal/Abdominal: positive: Normal Bowel Sounds, Flat, Soft, Other ( obese). negative: Tender Neurologic: positive: Other (drowsy but arousable. moves all four ext. ) Medical Decision Making - Medical Decision Making 11/17/17 19:26 62 yo male with etoh intoxication, signed out to dr. giraldo, plan to reassess when sober. *DC/Admit/Observation/Transfer Diagnosis at time of Disposition: Intoxication - Discharge Dispostion Decision to Admit order: No - Referrals - Patient Instructions Printed Discharge Instructions: DI for Alcohol Abuse - Post Discharge Activity
--- NOTE | 2017-11-18 03:49 | PDOC ---
*Physical Exam - Vital Signs Last Vital Signs Temp Pulse Resp BP Pulse Ox 97.8 F 78 18 133/77 95 11/17/17 16:40 11/17/17 16:40 11/17/17 16:40 11/17/17 16:40 11/17/17 16:40 Medical Decision Making - Medical Decision Making 11/18/17 03:48 Sign out taken from Dr. Suh at 7PM. Pt reassessed, now clinically sober. Ambulatory without assistance, steady gait. Pt is well appearing, with normal vitals. Clinically stable for DC at this time. I discussed the physical exam findings, ancillary test results and final diagnoses with the patient. I answered all of the patient's questions. The patient was satisfied with the care received and felt comfortable with the discharge plan and treatment plan. The patient agrees to follow up with the primary care physician within 24-72 hours. *DC/Admit/Observation/Transfer Diagnosis at time of Disposition: Intoxication - Discharge Dispostion Disposition: HOME - Referrals - Patient Instructions Printed Discharge Instructions: DI for Alcohol Abuse - Post Discharge Activity - Attestations Physician Attestion: 11/18/17 03:49 I, Dr. Jamal Rodriges MD, attest that this document has been prepared under my direction and personally reviewed by me in its entirety. I further attest, that it accurately reflects all work, treatment, procedures and medical decision -making performed by me.
== END 2017-11-18 05:55 | disposition home or self-care (01) ==
LOC: JER 16:38
DX: F10.220 Alcohol dependence with intoxication, uncomplicated (principal); I10 Essential (primary) hypertension; C45.9 Mesothelioma, unspecified; Z59.0 Homelessness
CPT/HCPCS: 99283-25

== ENCOUNTER 2017-11-27 21:59 | Emergency (ER) | payer OTHER ==
[2017-11-27 22:30] VITALS: TEMP 97.8; BMI 31.5
--- NOTE | 2017-11-28 00:30 | PDOC ---
History of Present Illness - General Chief Complaint: Alcohol intoxication Stated Complaint: PAIN Time Seen by Provider: 11/28/17 00:29 History Source: Patient, Old Records Exam Limitations: Intoxication - History of Present Illness Initial Comments: 11/28/17 00:30 Patients Doctor(s): PCP none History of Present Illness: 62-year-old male with past mental history of mesothelioma with long history of EtOH abuse and multiple ER visits and admission secondary to EtOH abuse is presented to the emergency department by EMS secondary to public intoxication. Patient presently states that he is experiencing pain to his lower back. Patient is not slurring his speech at this time but is unstable in gait and is intoxicated. Patient is presently able to deny chest pain, back pain, dizziness , blurred vision, nausea/vomiting, diarrhea, constipation, fever or chills. Patient denies use of any [id number] medication for the treatment of this complaint. Patient denies any sick contacts, travel outside the [place] or contact with any sick individuals who have been outside the [place]. Review of Systems: GENERAL/CONSTITUTIONAL: No fever or chills. No weakness. No weight change. HEAD, EYES, EARS, NOSE AND THROAT: No change in vision. No ear pain or discharge. No sore throat. CARDIOVASCULAR: No chest pain or shortness of breath. RESPIRATORY: No cough, wheezing, or hemoptysis. GASTROINTESTINAL: No nausea, vomiting, diarrhea or constipation. No rectal bleeding. GENITOURINARY: No dysuria, frequency, or change in urination. MUSCULOSKELETAL: No joint or muscle swelling or pain. No neck or back pain. SKIN AND BREASTS: No rash or easy bruising. NEUROLOGIC: No headache, vertigo, loss of consciousness, or loss of sensation. PSYCHIATRIC: EtOH abuse, No depression or anxiety. ENDOCRINE: No increased thirst. No abnormal weight change. HEMATOLOGIC/LYMPHATIC: No anemia, easy bleeding, or history of blood clots. ALLERGIC/IMMUNOLOGIC: No hives or skin allergy. No latex allergy. Past Medical History: Mesothelioma Family History: Mother with cancer Social History: EtOH abuse Surgical history: Denies Allergies: No known drug allergies Past History - Past Medical History Allergies/Adverse Reactions: Allergies Allergy/AdvReac Type Severity Reaction Status Date / Time Fish Containing Products Allergy Mild Swelling Verified 11/27/17 22:28 No Known Drug Allergies Allergy Verified 11/27/17 22:28 Home Medications: Ambulatory Orders NK [No Known Home Medication] 07/27/17 Anemia: No Asthma: No Cancer: Yes (mesothelioma) Cardiac Disorders: No CVA: No COPD: No CHF: No DVT: No Dementia: No Diabetes: No GI Disorders: No Disorders: No HTN: Yes Hypercholesterolemia: No Kidney Stones: No Liver Disease: No Psychiatric Problems: Yes (alcoholism) Seizures: No Thyroid Disease: No - Surgical History Abdominal Surgery: No Appendectomy: No Cardiac Surgery: No Cholecystectomy: No Lung Surgery: No Neurologic Surgery: No Orthopedic Surgery: No - Family Disease History Family Disease History: CA: Mother - Reproductive History Testicular Surgery: No - Immunization History TDAP Vaccination: Yes Immunization Up to Date: Yes - Suicide/Smoking/Psychosocial Hx Smoking Status: No Smoking History: Unknown if ever smoked Have you smoked in the past 12 months: No Number of Cigarettes Smoked Daily: 0 If you are a former smoker, when did you quit?: 0 Cigars Per Day: 0 'Breaking Loose' booklet given: 09/22/17 Hx Alcohol Use: Yes Drug/Substance Use Hx: No Substance Use Type: Alcohol Hx Substance Use Treatment: Yes *Physical Exam - Vital Signs Last Vital Signs Temp Pulse Resp BP Pulse Ox 97.8 F 93 H 18 139/76 97 11/27/17 22:28 11/27/17 22:28 11/27/17 22:28 11/27/17 22:28 11/27/17 22:28 Medical Decision Making - Medical Decision Making 11/28/17 00:30 A/P: Patient is a male with history of mesothelioma and EtOH abuse presented to the emergency department by EMS secondary to public intoxication. I will observe patient in the emergency department clinical sobriety is assessed. 11/28/17 04:35 Patient is currently awake and requesting water to drink. Speech is clear without any slurring noted. I will discharge the patient home. *DC/Admit/Observation/Transfer Diagnosis at time of Disposition: Alcohol dependence with uncomplicated intoxication - Discharge Dispostion Disposition: HOME Condition at time of disposition: Stable Decision to Admit order: No - Referrals Referrals: Garima Bridges MD [Primary Care Provider] - - Patient Instructions Printed Discharge Instructions: DI for Alcohol Abuse Additional Instructions: Avoid alcohol. Drink plenty of nonalcoholic beverages to keep hydrated. Eat a well-balanced diet. Return to emergency department for any concerns. - Post Discharge Activity
--- NOTE | 2017-11-28 00:34 | PDOC ---
*Physical Exam - Vital Signs Last Vital Signs Temp Pulse Resp BP Pulse Ox 97.8 F 93 H 18 139/76 97 11/27/17 22:28 11/27/17 22:28 11/27/17 22:28 11/27/17 22:28 11/27/17 22:28 Medical Decision Making - Medical Decision Making 11/28/17 00:34 Pt seen by Midlevel Provider under my direct supervision Pt interviewed and examined I agree with plan as outlined by Midlevel Provider *DC/Admit/Observation/Transfer Diagnosis at time of Disposition: Alcohol dependence with uncomplicated intoxication - Discharge Dispostion Disposition: HOME Condition at time of disposition: Stable - Referrals Referrals: Garima Bridges MD [Primary Care Provider] - - Patient Instructions Printed Discharge Instructions: DI for Alcohol Abuse Additional Instructions: Avoid alcohol. Drink plenty of nonalcoholic beverages to keep hydrated. Eat a well-balanced diet. Return to emergency department for any concerns. - Post Discharge Activity
[2017-11-28 04:18] VITALS: BP 127/59; PULSE 99
== END 2017-11-28 07:02 | disposition home or self-care (01) ==
LOC: JER 21:59
DX: F10.220 Alcohol dependence with intoxication, uncomplicated (principal); I10 Essential (primary) hypertension; C45.9 Mesothelioma, unspecified; Z59.0 Homelessness
CPT/HCPCS: 99282-25

== ENCOUNTER 2018-02-05 01:38 | Emergency (ER) | payer OTHER ==
[2018-02-05 02:00] VITALS: BP 123/85; PULSE 83; TEMP 97.8; BMI 33.0
--- NOTE | 2018-02-05 02:45 | PDOC ---
Attending Attestation - Resident Resident Name: Harper Mckeon - ED Attending Attestation I have performed the following: I have examined & evaluated the patient, The case was reviewed & discussed with the resident, I agree w/resident's findings & plan, Exceptions are as noted <Fabiana Woodard - Last Filed: 02/05/18 02:44> - HPI HPI: 02/05/18 06:14 Patient is a 63 year old male with a significant past medical history of Alcohol abuse, who presents to the ED with complaints of alcohol abuse. Patient is well known to the ED. He reports falling off a park bench recently with associated back pain but does not want any interventions. Patient currently does not have any other complaints while in the ED. Denies chest pain, sob. Denies nausea, vomiting. Denies fevers ,chills. Denies contact with sick individuals, out of state traveling. Denies head trauma, vision changes. Denies any other symptoms. Allergies: Fish Social history: Current alcohol use. No smoking. No illicit drugs. Surgical history: None PMD: None <Kamari Flores - Last Filed: 02/05/18 06:14>
--- NOTE | 2018-02-05 04:27 | PDOC ---
History of Present Illness - General Chief Complaint: Alcohol intoxication Stated Complaint: INTOX Time Seen by Provider: 02/05/18 02:03 - History of Present Illness Initial Comments: 02/05/18 04:26 63 year old man w/ a history of alcohol abuse well known to the ED who presents with alcohol intoxication and complaining of chronic back pain. Reports a similar story to many of his past visits to the ED; that he fell off of a park bench a few days ago and does not want any intervention. He denies any recent head trauma or injury to the extremities. He has no other complaints at bedside. Past History - Past Medical History Allergies/Adverse Reactions: Allergies Allergy/AdvReac Type Severity Reaction Status Date / Time Fish Containing Products Allergy Mild Swelling Verified 02/05/18 01:56 No Known Drug Allergies Allergy Verified 02/05/18 01:56 Home Medications: Ambulatory Orders NK [No Known Home Medication] 07/27/17 Anemia: No Asthma: No Cancer: Yes (mesothelioma) Cardiac Disorders: No CVA: No COPD: No CHF: No DVT: No Dementia: No Diabetes: No GI Disorders: No Disorders: No HTN: Yes Hypercholesterolemia: No Kidney Stones: No Liver Disease: No Psychiatric Problems: Yes (alcoholism) Seizures: No Thyroid Disease: No - Surgical History Abdominal Surgery: No Appendectomy: No Cardiac Surgery: No Cholecystectomy: No Lung Surgery: No Neurologic Surgery: No Orthopedic Surgery: No - Family Disease History Family Disease History: CA: Mother - Reproductive History Testicular Surgery: No - Immunization History TDAP Vaccination: Yes Immunization Up to Date: Yes - Suicide/Smoking/Psychosocial Hx Smoking Status: No Smoking History: Former smoker Have you smoked in the past 12 months: No Number of Cigarettes Smoked Daily: 4 If you are a former smoker, when did you quit?: 0 Cigars Per Day: 0 Information on smoking cessation initiated: No 'Breaking Loose' booklet given: 09/22/17 Hx Alcohol Use: Yes Drug/Substance Use Hx: No Substance Use Type: Alcohol Hx Substance Use Treatment: Yes *Physical Exam - Vital Signs Last Vital Signs Temp Pulse Resp BP Pulse Ox 97.8 F 83 20 123/85 94 L 02/05/18 01:57 02/05/18 01:57 02/05/18 01:57 02/05/18 01:57 02/05/18 01:57 - Physical Exam Comments: 02/05/18 04:34 unremarkable Medical Decision Making - Medical Decision Making 02/05/18 04:33 Pt stable and sleeping. *DC/Admit/Observation/Transfer Diagnosis at time of Disposition: Alcohol abuse - Discharge Dispostion Disposition: HOME Condition at time of disposition: Stable Decision to Admit order: No - Referrals - Patient Instructions Additional Instructions: Please stop drinking and please try to stay off of the streets. Please ask us if you need some help. Please return to the ED if you have any new or worsening symptoms. - Post Discharge Activity
== END 2018-02-05 06:32 | disposition home or self-care (01) ==
LOC: JER 01:38
DX: F10.10 Alcohol abuse, uncomplicated (principal); C45.9 Mesothelioma, unspecified; G89.29 Other chronic pain
CPT/HCPCS: 99281-25

== ENCOUNTER 2018-02-06 03:35 | Emergency (ER) | payer OTHER ==
[2018-02-06 04:10] VITALS: BP 131/79; PULSE 88; TEMP 97.7; BMI 35.9
[2018-02-06] MEDS ORDERED: SODIUM CHLORIDE 1,000 ML IV STA (04:11)
[2018-02-06] MEDS ORDERED: ONDANSETRON 4 MG/2 ML VIAL IVPB ONE (04:13)
[2018-02-06] MEDS ORDERED: FAMOTIDINE 20 MG/50 ML IVPB 20 MG/50 ML MG IVPB ONE ×2 (04:13→04:39)
[2018-02-06 04:19] LABS: BASO % 1.1 % (0-2.0); EOS % 2.1 % (0-4.5); HEMATOCRIT 32.1 % (35.4-49); HEMOGLOBIN 10.7 GM/dL (11.7-16.9); LYMPH % 25.9 % (8-40); MCH 29.3 pg (25.7-33.7); MCHC 33.3 g/dl (32.0-35.9); MEAN CELL VOLUME 87.9 fl (80-96); MEAN PLT VOLUME 7.4 fl (7.5-11.1); MONO % 7.6 % (3.8-10.2); NEUT % 63.3 % (42.8-82.8); PLATELET COUNT 429 K/MM3 (134-434); RBC 3.65 M/mm3 (4.00-5.60); RDW 19.8 % (11.9-15.9); WHITE BLOOD COUNT 6.3 K/mm3 (4.0-10.0)
--- NOTE | 2018-02-06 04:28 | PDOC ---
History of Present Illness - General Chief Complaint: Pain Stated Complaint: STOMACHPAIN/VOMITING Time Seen by Provider: 02/06/18 03:48 History Source: Patient Exam Limitations: No Limitations - History of Present Illness Travel History: No Initial Comments: 02/06/18 04:24 History of Present Illness: 61-year-old male with PMH of mesothelioma with an extension hx of EtOH abuse with multiple ER visits and admissions due to EtOH abuse is biba for lower mid abd pain. "I have gastritis> Pain is described as 3/10 crampy non radiating discomfort. Alleviated after vomiting/nbnb. No exacerbating factors. Pt states he feels better since arrival to the ER. Patient at this time is noted to have AOB. Patient is not slurring his speech at this time but is unstable in gait and is intoxicated. Patient is A&Ox3 to deny f/c,n/v/d, constipation, lightheadedness, dizziness, guerra, blurry vision, visual disturbance, chest pain, sob, neck/back pain, urinary symptoms; urgency/frequency/hesitancy, hematuria. Patient denies any sick contacts, travel outside the [place] or contact with any sick individuals who have been outside the [place]. Past Medical History: ETOH abuse, Mesothelioma Family History: Mother with cancer Social History: EtOH abuse Surgical history: Denies Allergies: No known drug allergies ROS: CONSTITUTIONAL: Absent: fever, chills, diaphoresis, generalized weakness, malaise, loss of appetite HEENT: Absent: rhinorrhea, nasal congestion, throat pain, throat swelling, difficulty swallowing, mouth swelling, ear pain, eye pain, visual Changes CARDIOVASCULAR: Absent: chest pain, loss of consciousness, palpitations, irregular heart rate, peripheral edema RESPIRATORY: Absent: cough, shortness of breath, dyspnea with exertion, orthopnea, wheezing, stridor, hemoptysis GASTROINTESTINAL: +resolving abd pain/mid, nausea, vomiting Absent: abdominal distension, diarrhea, constipation, melena, hematochezia GENITOURINARY: Absent: dysuria, frequency, urgency, hesitancy, hematuria, flank pain, genital pain MUSCULOSKELETAL: Absent: myalgia, arthralgia, joint swelling SKIN: Absent: rash, itching, pallor HEMATOLOGIC/IMMUNOLOGIC: Absent: easy bleeding, easy bruising, lymphadenopathy, frequent infections ENDOCRINE: Absent: unexplained weight gain, unexplained weight loss, heat intolerance, cold intolerance NEUROLOGIC: Absent: headache, focal weakness or paresthesias, dizziness, unsteady gait, seizure, mental status changes, bladder or bowel incontinence PSYCHIATRIC: Absent:+EtOH abuse, No depression or anxiety.anxiety, depression, suicidal or homicidal ideation, hallucinations. GENERAL: Well developed, well nourished. Awake and alert. No acute distress. HEENT: Normocephalic, atraumatic. PERRLA, EOMI. No conjunctival pallor. Sclera are non- icteric. Moist mucous membranes. Oropharynx is clear. NECK: Supple. Full ROM. No JVD. Carotid pulses 2+ and symmetric, without bruits. No thyromegaly. No lymphadenopathy. CARDIOVASCULAR: Regular rate and rhythm. No murmurs, rubs, or gallops. Distal pulses are 2+ and symmetric. PULMONARY: No evidence of respiratory distress. Lungs clear to auscultation bilaterally. No wheezing, rales or rhonchi. ABDOMINAL: Soft. Non-tender. Non-distended. No rebound or guarding. No organomegaly. Normoactive bowel sounds. MUSCULOSKELETAL Normal range of motion at all joints. No bony deformities or tenderness. No CVA tenderness. EXTREMITIES: No cyanosis. No clubbing. No edema. No calf tenderness. SKIN: Warm and dry. Normal capillary refill. No rashes. No jaundice. NEUROLOGICAL: Alert, awake, appropriate. Cranial nerves 2-12 intact. No deficits to light touch and temperature in face, upper extremities and lower extremities. No motor deficits in the in face, upper extremities and lower extremities. Normoreflexic in the upper and lower extremities. Normal speech. Toes are down- going bilaterally. Gait is normal without ataxia. PSYCHIATRIC: Cooperative. Good eye contact. Appropriate mood and affect. Medical Decision Making Patient reassessment: Patient has been noted to be walking and emergency department without difficulty or ataxic gait. Patient is able to communicate clearly and has straight clear mentation. I will discharge this patient to follow-up with outpatient PCP. Patient does not indicate desire at this time for detox. I discussed the physical exam findings, ancillary test results and final diagnoses with the patient. I answered all of the patient's questions. The patient was satisfied with the care received and felt comfortable with the discharge plan and treatment plan. The patient will call their primary care physician within 24 hours to arrange follow-up and will return to the Emergency Department with any new, persistent or worsening symptoms. Printed Discharge Instructions: DI for Alcohol Abuse/ abd pain/gastritis Additional Instructions: Please follow-up with the included referral for PCP. Return to emergency room if shortness of breath, wheezing, fever greater than 101, chest pain, or fainting occurs. Past History - Past Medical History Allergies/Adverse Reactions: Allergies Allergy/AdvReac Type Severity Reaction Status Date / Time Fish Containing Products Allergy Mild Swelling Verified 02/06/18 04:11 No Known Drug Allergies Allergy Verified 02/06/18 04:11 Home Medications: Ambulatory Orders NK [No Known Home Medication] 07/27/17 Anemia: No Asthma: No Cancer: Yes (mesothelioma) Cardiac Disorders: No CVA: No COPD: No CHF: No DVT: No Dementia: No Diabetes: No GI Disorders: No Disorders: No HTN: Yes Hypercholesterolemia: No Kidney Stones: No Liver Disease: No Psychiatric Problems: Yes (alcoholism) Seizures: No Thyroid Disease: No - Surgical History Abdominal Surgery: No Appendectomy: No Cardiac Surgery: No Cholecystectomy: No Lung Surgery: No Neurologic Surgery: No Orthopedic Surgery: No - Family Disease History Family Disease History: CA: Mother - Reproductive History Testicular Surgery: No - Immunization History TDAP Vaccination: Yes Immunization Up to Date: Yes - Suicide/Smoking/Psychosocial Hx Smoking Status: No Smoking History: Former smoker Have you smoked in the past 12 months: No Number of Cigarettes Smoked Daily: 4 If you are a former smoker, when did you quit?: 0 Cigars Per Day: 0 Information on smoking cessation initiated: No 'Breaking Loose' booklet given: 09/22/17 Hx Alcohol Use: Yes Drug/Substance Use Hx: No Substance Use Type: Alcohol Hx Substance Use Treatment: Yes Abd/GI Specific PMHX - Complaint Specific PMHX GERD: No Hepatitis: No Pancreatitis: No *Physical Exam - Vital Signs Last Vital Signs Temp Pulse Resp BP Pulse Ox 97.7 F 88 18 131/79 97 02/06/18 03:35 02/06/18 03:35 02/06/18 03:35 02/06/18 03:35 02/06/18 03:35 ED Treatment Course - LABORATORY CBC & Chemistry Diagram: 02/06/18 04:10 02/06/18 04:10 Progress Note - Progress Note Progress Note: 0623hrs: pt feels pain free. *DC/Admit/Observation/Transfer Diagnosis at time of Disposition: Alcohol dependence with intoxication Qualifiers: Complication of substance-induced condition: uncomplicated Qualified Code(s): F10.220 - Alcohol dependence with intoxication, uncomplicated Abdominal pain Qualifiers: Abdominal location: unspecified location Qualified Code(s): R10.9 - Unspecified abdominal pain - Discharge Dispostion Condition at time of disposition: Fair - Referrals - Patient Instructions - Post Discharge Activity
[2018-02-06] MEDS ORDERED: ONDANSETRON 4 MG/2 ML VIAL ONE (04:39)
[2018-02-06 04:44] LABS: BILIRUBIN,TOTAL 0.4 mg/dL (0.2-1.0); BLOOD UREA NITROGEN 6 mg/dL (7-18); CALCIUM 8.8 mg/dL (8.5-10.1); CO2 31 mmol/L (21-32); CREATININE 0.6 mg/dL (0.7-1.3); GLUCOSE,RANDOM 79 mg/dL (74-106); LIPASE 112 U/L (73-393); SGOT/AST 47 U/L (15-37); SGPT/ALT 30 U/L (12-78); TOT PROT 6.5 g/dl (6.4-8.2)
[2018-02-06 04:45] LABS: ALK PHOS 163 U/L (45-117)
[2018-02-06 04:50] LABS: ANION GAP 11 MMOL/L (8-16); CHLORIDE 104 mmol/L (98-107); POTASSIUM 3.7 mmol/L (3.5-5.1); SODIUM 146 mmol/L (136-145)
== END 2018-02-06 06:58 | disposition home or self-care (01) ==
LOC: JER 03:35
PROC: 3E033GC Introduction of Other Therapeutic Substance into Peripheral Vein, Percutaneous Approach (ICD-10-PCS; principal; 2018-02-06)
PROC: 3E0337Z Introduction of Electrolytic and Water Balance Substance into Peripheral Vein, Percutaneous Approach (ICD-10-PCS; 2018-02-06)
DX: F10.10 Alcohol abuse, uncomplicated (principal); G89.29 Other chronic pain; I10 Essential (primary) hypertension; Z87.891 Personal history of nicotine dependence
CPT/HCPCS: 36415; 80053; 80307; 83690; 85025; 96361; 96365; 96375; 99281-25; J7030

== ENCOUNTER 2018-02-08 06:55 | Inpatient (IN) | payer OTHER ==
--- NOTE | 2018-02-08 07:12 | PDOC ---
History of Present Illness - General Stated Complaint: ABDOMINAL PAIN Time Seen by Provider: 02/08/18 07:10 History Source: Patient Exam Limitations: No Limitations - History of Present Illness Initial Comments: 02/08/18 11:35 Mr. De Leon is a 63 yo M with hx of alcoholism and mesothelioma who is well known to the emergency department presents with alcohol withdrawal with associative acute on chronic back and epigastric pain. He states his last drink occurred at 7-8 pm yesterday which was 1 pint of vodka. He normally drinks 2-3 pints per day of vodka. His last withdrawal was "last week" and states he has been to [facility] before in the past "30 or more times". He states he wants to enter a rehab facilility because he "had enough with alcohol". Denies SI, HI, or thoughts of self harm. Concurrently, he is having nausea with epigastric pain and RUQ without vomiting. He describes is as sharp 10/10 without association of intensity increase with eating. Denies hx of gallstones and nephrolithiasis. Endorses having chronic back pain. The back pain is located in the right paravertebral region L4-L5 with radiation to the RUQ. Denies the following: fevers, headaches, visual changes, chest pain, SOB, dysuria, hematuria, hematochezia, melena, leg swelling/pain. PCP: Garima Bridges Pmhx: mesothelioma and alcoholism Shx: None Meds: None Allergies: None Social: Denies smoking and drug use. Drinks on average 2-3 pints of vodka per day. 02/08/18 11:43 02/08/18 11:52 02/08/18 11:56 \\ Past History - Past Medical History Allergies/Adverse Reactions: Allergies Allergy/AdvReac Type Severity Reaction Status Date / Time Fish Containing Products Allergy Mild Swelling Verified 02/08/18 18:25 No Known Drug Allergies Allergy Verified 02/08/18 18:25 Home Medications: Ambulatory Orders NK [No Known Home Medication] 07/27/17 Anemia: No Asthma: No Cancer: Yes (mesothelioma) Cardiac Disorders: No CVA: No COPD: No CHF: No DVT: No Dementia: No Diabetes: No GI Disorders: No Disorders: No HTN: Yes Hypercholesterolemia: No Kidney Stones: No Liver Disease: No Psychiatric Problems: Yes (alcoholism) Seizures: No Thyroid Disease: No - Surgical History Abdominal Surgery: No Appendectomy: No Cardiac Surgery: No Cholecystectomy: No Lung Surgery: No Neurologic Surgery: No Orthopedic Surgery: No - Family Disease History Family Disease History: CA: Mother - Reproductive History Testicular Surgery: No - Immunization History TDAP Vaccination: Yes Immunization Up to Date: Yes - Suicide/Smoking/Psychosocial Hx Smoking Status: No Smoking History: Former smoker Have you smoked in the past 12 months: No Number of Cigarettes Smoked Daily: 4 If you are a former smoker, when did you quit?: 0 Cigars Per Day: 0 'Breaking Loose' booklet given: 09/22/17 Hx Alcohol Use: Yes Drug/Substance Use Hx: No Substance Use Type: Alcohol Hx Substance Use Treatment: Yes Review of Systems - Review of Systems Able to Perform ROS?: Yes Constitutional: No: Diaphoresis, Fever HEENTM: No: Recent change in vision, Nose Pain, Throat Pain, Mouth Pain Respiratory: No: Cough, Shortness of Breath, Hemoptysis Cardiac (ROS): No: Chest Pain ABD/GI: Yes: Nausea, Abdominal cramping. No: Constipated, Diarrhea, Rectal Bleeding, Vomiting, Tarry Stools : No: Burning, Dysuria, Flank Pain, Hematuria Musculoskeletal: Yes: Back Pain Integumentary: No: Rash Neurological: No: Headache, Numbness, Weakness Psychiatric: No: Stressors, Sleep Pattern Change Endocrine: No: Unexplained Weight Gain Hematologic/Lymphatic: No: Anemia *Physical Exam - Physical Exam General Appearance: Yes: Nourished, Appropriately Dressed HEENT: positive: EOMI, DOUGLAS, Normal ENT Inspection, Normal Voice Neck: negative: Lymphadenopathy (R), Lymphadenopathy (L) Respiratory/Chest: positive: Lungs Clear, Normal Breath Sounds Cardiovascular: positive: Regular Rhythm, Regular Rate, S1, S2. negative: Systolic Murmur Vascular Pulses: Dorsalis-Pedis (R): 3+, Doralis-Pedis (L): 3+ Gastrointestinal/Abdominal: positive: Normal Bowel Sounds, Tender (RUQ and epigastric region. ) Lymphatic: negative: Adenopathy Musculoskeletal: positive: Other (right paravetebral tenderness in the l4-L5 region. ). negative: CVA Tenderness Extremity: positive: Normal Capillary Refill, Normal Inspection, Normal Range of Motion Integumentary: positive: Normal Color, Dry, Warm. 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 negative: Facial Droop, Numbness, Sensory Deficit Heart Score/ECG Review - ECG Intrepretation Comment:: 02/09/18 07:13 poor ecg because of movement by the patient. ventricular rate: 86 bpm, DC is 138 ms, qrs is 84 ms, and QTc is 488 ms. left axis deviation. no st depressions or elevations. ED Treatment Course - LABORATORY CBC & Chemistry Diagram: 02/08/18 08:10 02/08/18 08:10 Medical Decision Making - Medical Decision Making 02/09/18 07:15 63 yo M well known to the ED with hx of alcoholism presenting with withdrawal with concurrent epigastric tenderness and acute on chronic pain in right lower back. initial vitals: Initial Vital Signs Temp Pulse Resp BP Pulse Ox 98.5 F 84 16 123/87 95 02/08/18 07:49 02/08/18 07:49 02/08/18 07:49 02/08/18 07:49 02/08/18 07:49 Ddx: gastritis, alcohol withdrawal sequela, pancreatitis, cholelithiasis, cholecysitits, UTI, pyelonephritis, GERD, acs, PNA Work up:" Laboratory Tests 02/08/18 02/08/18 02/08/18 08:10 08:10 11:20 WBC 7.7 RBC 3.56 L Hgb 10.0 L Hct 31.6 L MCV 88.6 MCH 28.2 MCHC 31.8 L RDW 19.5 H Plt Count 268 D MPV 7.4 L Absolute Neuts (auto) 5.5 Neutrophils % 70.9 Lymphocytes % 18.4 D Monocytes % 8.2 Eosinophils % 1.3 Basophils % 1.2 Nucleated RBC % 0 Sodium 143 Potassium 3.4 L Chloride 103 Carbon Dioxide 32 Anion Gap 8 BUN 6 L Creatinine 0.6 L Creat Clearance w eGFR > 60 Random Glucose 80 Calcium 7.8 L Total Bilirubin 0.8 AST 46 H ALT 23 D Alkaline Phosphatase 152 H D Creatine Kinase 85 Troponin I < 0.02 Total Protein 6.3 L Albumin 2.9 L Lipase 71 L Urine Color Yellow Urine Appearance Clear Urine pH 6.0 Ur Specific [place] 1.012 Urine Protein Negative Urine Glucose (UA) Negative Urine Ketones Negative Urine Blood 1+ H Urine Nitrite Negative Urine Bilirubin Negative Urine Urobilinogen 2.0 Ur Leukocyte Esterase Negative Urine WBC (Auto) <1 Urine RBC (Auto) 1 Ur Epithelial Cells Rare Hyaline Casts 4 Urine Mucus Rare RUQ us showed no gallstones with "dense echotexture consistent with fatty infiltration". Given the following interventions: zofran, acetaminophen, pepcid , bentyl, and maalox for pain and nausea control. Given a banana bag and librium given alcoholic hx. Patient improved symptomatically in the emergency department. Expressed willingness to go to [facility] for detoxification. [facility] was called and spoke to Dr. Duane Huff who accepted Mr. De Leon for transfer. Musculoskeletal pain likely more acute on chronic due to Mr De Leon stating he "slept on a bench" the night prior vs concerning pathologies. Dispo: Transfer to [facility]. *DC/Admit/Observation/Transfer Diagnosis at time of Disposition: History of - alcoholism, Alcohol dependence with uncomplicated withdrawal - Discharge Dispostion Disposition: HOME Condition at time of disposition: Stable Decision to Admit order: No - Referrals - Patient Instructions - Post Discharge Activity
--- NOTE | 2018-02-08 07:40 | PDOC ---
Attending Attestation - Resident Resident Name: Kobi Carrasco - ED Attending Attestation I have performed the following: I have examined & evaluated the patient, The case was reviewed & discussed with the resident, I agree w/resident's findings & plan, Exceptions are as noted - HPI HPI: 02/08/18 07:42 Mr De Leon is a 63 year old male, well known to myself, with a significant past mental history of mesothelioma with long history of EtOH abuse and multiple ER visits and admission secondary to EtOH abuse, who presents to the emergency department due to alcohol withdrawal. Pt last drink was more than 12 hours ago He also reports back pain He also reports abdominal pain The patient denies orthopnea, chest pain, headache, dizziness, and recent trauma. Denies fever, chills, nausea ,vomiting, and any bowel/urinary symptoms. Allergies: Fish containing products. NKDA Social History: EtOH abuse. No reported cigarette or drug abuse. 02/08/18 08:00 02/08/18 08:02 - Physicial Exam PE: 02/08/18 08:01 GENERAL: The patient is discheveled HEAD: Normal with no signs of trauma. LUNGS: Coarse breath sounds HEART:Regular rate and rhythm ABDOMEN: Soft, RUQ and epigastric tenderness EXTREMITIES: Normal range of motion, no edema. . NEUROLOGICAL: Cranial nerves II through XII grossly intact. Normal speech. No focal neurological deficits. tongue fasciculations, hand tremor noted MUSCULOSKELETAL: Paraspinal tenderness to palpation 02/08/18 08:03 - Medical Decision Making 02/08/18 08:02 Pt is withdrawing Pt has abdominal pain -alcoholic gastritis, pancreatitis, biliary colic Pt has back pain - no bowel or bladder incontinence, likely musculoskeletal, no trauma to suggest fracture 02/08/18 08:03 Will do Labs, US Will give Librium, Banana bag, may need ativan Will re assess if stable for detox, will send him there If not, admit to hospitalist 02/08/18 09:02 EKG: SR rate of 86 bpm, LAD, no st elevation or depression, ekg somewhat limited due to artifact 02/08/18 09:42 Laboratory Tests 02/08/18 02/08/18 08:10 08:10 WBC 7.7 Hgb 10.0 L Hct 31.6 L Plt Count 268 D Sodium 143 Potassium 3.4 L Chloride 103 Carbon Dioxide 32 BUN 6 L Creatinine 0.6 L Random Glucose 80 Creatine Kinase 85 Troponin I < 0.02 Lipase 71 L Case reviewed with Dr Ornelas Plan will be to be re assess his need to be in the ER If he is withdrawing he may be able to go to [facility] Received call from administration re: this patient They have a bed for him in [facility] and would prefer him there Pt re assessed Pt has improved He reports his chronic back pain He no longer is tremulous after Librium Will transfer to [facility] Clinical Impression: alcohol withdrawal, initial presentation Discharge Disposition - Diagnosis History of - alcoholism, Alcohol dependence with uncomplicated withdrawal - Discharge Dispostion Disposition: HOME Condition at time of disposition: Stable Last Admission D/C Date: 04/01/17 Decision to Admit order: Yes - Referrals - Patient Instructions - Post Discharge Activity
[2018-02-08] MEDS ORDERED: SODIUM CHLORIDE 1,000 ML IV STA (07:52)
[2018-02-08 07:53] VITALS: TEMP 98.5; BMI 32.0
[2018-02-08] MEDS ORDERED: chlordiazePOXIDE HCL 25 MG CAPSULE PO ONE (07:54)
[2018-02-08] MEDS ORDERED: MAG HYDROX/AL HYDROX/SIMETH 30 ML UNIT-DOSE CUP PO ONE (07:54)
[2018-02-08] MEDS ORDERED: ONDANSETRON 4 MG/2 ML VIAL IVPUSH ONE (07:54)
[2018-02-08] MEDS ORDERED: FAMOTIDINE 20 MG/50 ML IVPB 20 MG/50 ML MG IVPB ONE ×2 (07:54→08:38)
[2018-02-08] MEDS ORDERED: DICYCLOMINE HCL 20 MG TABLET PO ONE (07:54)
[2018-02-08] MEDS ORDERED: FOLIC ACID INJECTION - 1 MG, THIAMINE HCL 100 MG, MULTIVIT INJECTION ADULT 10 ML in SOD... IVPB ONE (08:07)
[2018-02-08 08:27] LABS: BASO % 1.2 % (0-2.0); EOS % 1.3 % (0-4.5); HEMATOCRIT 31.6 % (35.4-49); LYMPH % 18.4 % (8-40); MCH 28.2 pg (25.7-33.7); MCHC 31.8 g/dl (32.0-35.9); MEAN CELL VOLUME 88.6 fl (80-96); MEAN PLT VOLUME 7.4 fl (7.5-11.1); MONO % 8.2 % (3.8-10.2); NEUT % 70.9 % (42.8-82.8); PLATELET COUNT 268 K/MM3 (134-434); RBC 3.56 M/mm3 (4.00-5.60); RDW 19.5 % (11.9-15.9); WHITE BLOOD COUNT 7.7 K/mm3 (4.0-10.0)
[2018-02-08] MEDS ORDERED: chlordiazePOXIDE HCL 25 MG CAPSULE ONE (08:37)
[2018-02-08] MEDS ORDERED: ONDANSETRON 4 MG/2 ML VIAL ONE (08:38)
[2018-02-08] MEDS ORDERED: MAG HYDROX/AL HYDROX/SIMETH 30 ML UNIT-DOSE CUP ONE (08:38)
[2018-02-08] MEDS ORDERED: DICYCLOMINE HCL 10 MG CAPSULE ONE (08:38)
[2018-02-08 08:45] LABS: ALBUMIN 2.9 g/dl (3.4-5.0); ANION GAP 8 MMOL/L (8-16); BILIRUBIN,TOTAL 0.8 mg/dL (0.2-1.0); BLOOD UREA NITROGEN 6 mg/dL (7-18); CALCIUM 7.8 mg/dL (8.5-10.1); CHLORIDE 103 mmol/L (98-107); CO2 32 mmol/L (21-32); CREATININE 0.6 mg/dL (0.7-1.3); GLUCOSE,RANDOM 80 mg/dL (74-106); LIPASE 71 U/L (73-393); POTASSIUM 3.4 mmol/L (3.5-5.1); SGOT/AST 46 U/L (15-37); SGPT/ALT 23 U/L (12-78); SODIUM 143 mmol/L (136-145); TOT PROT 6.3 g/dl (6.4-8.2)
[2018-02-08 08:48] LABS: ALK PHOS 152 U/L (45-117)
--- NOTE | 2018-02-08 10:18 | EKG ---
Test Reason : Blood Pressure : / mmHG Vent. Rate : 086 BPM Atrial Rate : 086 BPM P-R Int : 138 ms QRS Dur : 084 ms QT Int : 408 ms P-R-T Axes : 026 -35 026 degrees QTc Int : 488 ms POOR DATA QUALITY, INTERPRETATION MAY BE ADVERSELY AFFECTED SINUS RHYTHM WITH MARKED SINUS ARRHYTHMIA LEFT AXIS DEVIATION NONSPECIFIC ST AND T WAVE ABNORMALITY ABNORMAL ECG WHEN COMPARED WITH ECG OF 16-OCT-2017 03:10, POOR DATA QUALITY IN CURRENT ECG PRECLUDES SERIAL COMPARISON Confirmed by JOSE EDGE MD ([id number]) on 02/08/2018 10:17:38 AM Referred By: Confirmed By:JOSE EDGE MD
[2018-02-08] MEDS ORDERED: ACETAMINOPHEN 1000 MG/100 ML VIAL (NON FORMULARY) IVPB ONE (11:03)
[2018-02-08] MEDS: CYCLOBENZAPRINE HCL 10 MG TABLET (FP) PO ONE ×2 (11:17→11:48)
[2018-02-08] MEDS ORDERED: ACETAMINOPHEN INJECTION 100 ML IVPB ONE (11:19)
[2018-02-08 11:33] LABS: URINE APPEARANCE CLEAR; URINE BILIRUBIN NEGATIVE (<2.0 mg/dL); URINE COLOR YELLOW; URINE GLUCOSE (UA) NEGATIVE (NEGATIVE); URINE KETONE NEGATIVE (NEGATIVE); URINE LEUK ESTERASE NEGATIVE (NEGATIVE); URINE NITRITE NEGATIVE (NEGATIVE); URINE PROTEIN NEGATIVE (NEGATIVE)
[2018-02-08] MEDS ORDERED: CYCLOBENZAPRINE HCL 10 MG TABLET (FP) ONE (11:44)
[2018-02-08 11:59] VITALS: BP 150/102; PULSE 82
[2018-02-08 12:02] LABS: EPI CELLS RARE /HPF (FEW); URINE HYALINE CAST 4 /lpf; URINE MUCUS RARE
== END 2018-02-08 15:14 | disposition home or self-care (01) | DRG 775 ==
LOC: JER 06:55 → JERBED 11:54
PROVIDERS: ADMIT Internal Medicine; ATTEND Internal Medicine
DX: F10.230 Alcohol dependence with withdrawal, uncomplicated (principal); K76.0 Fatty (change of) liver, not elsewhere classified; C45.9 Mesothelioma, unspecified; Z87.891 Personal history of nicotine dependence
CPT/HCPCS: 36415; 76705-TC; 80053; 81003; 81015; 82550; 83690; 84484; 85025; 93005; 93010; 99283-25; J0131; J7030

== ENCOUNTER 2018-02-14 15:56 | Emergency (ER) | payer OTHER ==
[2018-02-14 16:14] VITALS: BP 105/72; PULSE 106; TEMP 99.7; BMI 33.0
--- NOTE | 2018-02-14 18:58 | PDOC ---
History of Present Illness - General Chief Complaint: Alcohol intoxication Stated Complaint: INTOX Time Seen by Provider: 02/14/18 16:48 History Source: Patient Exam Limitations: Intoxication - History of Present Illness Initial Comments: 02/14/18 17:47 63 yo male pmh significant for alcoholism and mesothelioma presents to the ED intoxicated and admits to drinking 1 pint of vodka today. Timing/Duration: unsure Past History - Past Medical History Allergies/Adverse Reactions: Allergies Allergy/AdvReac Type Severity Reaction Status Date / Time Fish Containing Products Allergy Mild Swelling Verified 02/14/18 16:05 No Known Drug Allergies Allergy Verified 02/14/18 16:05 Home Medications: Ambulatory Orders NK [No Known Home Medication] 07/27/17 Anemia: No Asthma: No Cancer: Yes (mesothelioma) Cardiac Disorders: No CVA: No COPD: No CHF: No DVT: No Dementia: No Diabetes: No GI Disorders: No Disorders: No HTN: Yes Hypercholesterolemia: No Kidney Stones: No Liver Disease: No Psychiatric Problems: Yes (alcoholism) Seizures: No Thyroid Disease: No - Surgical History Abdominal Surgery: No Appendectomy: No Cardiac Surgery: No Cholecystectomy: No Lung Surgery: No Neurologic Surgery: No Orthopedic Surgery: No - Family Disease History Family Disease History: CA: Mother - Reproductive History Testicular Surgery: No - Immunization History TDAP Vaccination: Yes Immunization Up to Date: Yes - Suicide/Smoking/Psychosocial Hx Smoking Status: No Smoking History: Never smoked Have you smoked in the past 12 months: No Number of Cigarettes Smoked Daily: 4 If you are a former smoker, when did you quit?: 0 Cigars Per Day: 0 Information on smoking cessation initiated: No 'Breaking Loose' booklet given: 09/22/17 Hx Alcohol Use: Yes Drug/Substance Use Hx: No Substance Use Type: Alcohol Hx Substance Use Treatment: Yes (Detoxes and rehab in past) *Physical Exam - Vital Signs Last Vital Signs Temp Pulse Resp BP Pulse Ox 99.7 F H 106 H 18 105/72 99 02/14/18 16:06 02/14/18 16:06 02/14/18 16:06 02/14/18 16:06 02/14/18 17:31
== END 2018-02-14 18:50 | disposition left against medical advice (07) ==
LOC: JER 15:56
DX: F10.220 Alcohol dependence with intoxication, uncomplicated (principal); I10 Essential (primary) hypertension; C45.9 Mesothelioma, unspecified; Z59.0 Homelessness; Y90.9 Presence of alcohol in blood, level not specified
CPT/HCPCS: 99282-25

== ENCOUNTER 2018-02-15 21:46 | Emergency (ER) | payer OTHER ==
--- NOTE | 2018-02-15 22:54 | PDOC ---
History of Present Illness - History of Present Illness Initial Comments: 02/16/18 00:07 The patient is a 63 year old male, well known to the ED, with a significant past medical history of alcoholism and mesothelioma, who presents to the emergency department with complaint of chronic chest, abdominal, and back pain. He states he drinks alcohol daily. He reports drinking today. The patient denies shortness of breath, headache and dizziness. The patient denies fever, chills, nausea, vomit, diarrhea and constipation. The patient denies dysuria, frequency, urgency and hematuria. Allergies: NKDA <Ernestine Snyder - Last Filed: 02/16/18 00:07> - General History Source: Patient Exam Limitations: Intoxication <Amada Alamo - Last Filed: 02/16/18 05:23> - General Chief Complaint: Alcohol intoxication Stated Complaint: Alcohol intoxication Time Seen by Provider: 02/15/18 22:27 Past History <Ernestine Snyder - Last Filed: 02/16/18 00:07> - Past Medical History Anemia: No Asthma: No Cancer: Yes (mesothelioma) Cardiac Disorders: No CVA: No COPD: No CHF: No DVT: No Dementia: No Diabetes: No GI Disorders: No Disorders: No HTN: Yes Hypercholesterolemia: No Kidney Stones: No Liver Disease: No Psychiatric Problems: Yes (alcoholism) Seizures: No Thyroid Disease: No - Surgical History Abdominal Surgery: No Appendectomy: No Cardiac Surgery: No Cholecystectomy: No Lung Surgery: No Neurologic Surgery: No Orthopedic Surgery: No - Family Disease History Family Disease History: CA: Mother - Reproductive History Testicular Surgery: No - Immunization History TDAP Vaccination: Yes Immunization Up to Date: Yes - Suicide/Smoking/Psychosocial Hx Smoking Status: No Smoking History: Never smoked Have you smoked in the past 12 months: No Number of Cigarettes Smoked Daily: 4 If you are a former smoker, when did you quit?: 0 Cigars Per Day: 0 'Breaking Loose' booklet given: 09/22/17 Hx Alcohol Use: Yes Drug/Substance Use Hx: No Substance Use Type: Alcohol Hx Substance Use Treatment: Yes (Detoxes and rehab in past) <Amada Alamo - Last Filed: 02/16/18 05:23> - Past Medical History Allergies/Adverse Reactions: Allergies Allergy/AdvReac Type Severity Reaction Status Date / Time Fish Containing Products Allergy Mild Swelling Verified 02/14/18 16:05 No Known Drug Allergies Allergy Verified 02/14/18 16:05 Home Medications: Ambulatory Orders NK [No Known Home Medication] 07/27/17 Review of Systems - Review of Systems Able to Perform ROS?: Yes Comments:: 02/16/18 00:07 Constitutional: no fevers or chills. HEENT: no headache or dizziness. CVS: +CP. No syncope. Resp: no sob. Abdomen: + abdominal pain, No nausea or vomiting. MUSCULOSKELETAL: +Back pain. No joint pain and swelling. No neck pain SKIN: no redness or skin changes, no discharge, no rash. Hematologic: no easy bruising/bleeding. NEUROLOGIC: No headache, dizziness, LOC or altered mental status. No weakness, numbness or tingling. All other systems reviewed and negative, or as documented in HPI. mild limitation in ROS due to intoxication. <Ernestine Snyder - Last Filed: 02/16/18 00:07> *Physical Exam - Vital Signs Last Vital Signs Temp Pulse Resp BP Pulse Ox 99.2 F 83 19 154/88 95 02/15/18 21:50 02/15/18 21:50 02/15/18 21:50 02/15/18 21:50 02/15/18 21:50 - Physical Exam Comments: 02/16/18 00:07 General: +ETOH on breath. Sleeping comfortably, slurring speech, intoxicated. Disheveled, malodorous. HEENT: NCAT, PERRL, EOMI, clear conjunctiva, anicteric, moist mucus membranes, clear oropharynx, no oral lesions.. Neck: neck supple, FROM Resp: CTAB, normal and even respirations, no respiratory distress CVS: RRR, no murmurs, 2+ peripheral pulses throughout, no peripheral edema Abdomen: soft, obese, suprapubic tenderness, no hernia. no peritoneal signs. Back: nontender, normal inspection and ROM MSK: no edema, DICKEY x4, ROM intact. No clubbing or cyanosis. normal bulk and tone. Neuro: alert goes back to sleep, oriented appropriately; slurring speech 2/2 intoxication Skin: warm and well perfused, cap refill <2 sec, normal color <Ernestine Snyder - Last Filed: 02/16/18 00:07> ED Treatment Course - LABORATORY CBC & Chemistry Diagram: 02/15/18 23:18 02/15/18 23:18 - ADDITIONAL ORDERS Additional order review: Laboratory Results 02/15/18 02/15/18 02/15/18 23:18 23:18 23:18 Sodium Potassium Chloride Carbon Dioxide Anion Gap BUN Creatinine Creat Clearance w eGFR Random Glucose Calcium Total Bilirubin AST ALT Alkaline Phosphatase Troponin I < 0.02 Total Protein Albumin Lipase 37 L Alcohol, Quantitative 218.5 H* 02/15/18 23:18 Sodium 147 H Potassium 3.6 Chloride 109 H Carbon Dioxide 26 Anion Gap 12 BUN 5 L Creatinine 0.6 L Creat Clearance w eGFR > 60 Random Glucose 76 Calcium 8.0 L Total Bilirubin 0.4 AST 42 H D ALT 23 D Alkaline Phosphatase 122 H D Troponin I Total Protein 6.4 Albumin 2.9 L Lipase Alcohol, Quantitative 02/15/18 23:18 RBC 3.51 L MCV 88.3 MCHC 32.5 RDW 20.0 H MPV 7.3 L Neutrophils % 43.7 D Lymphocytes % 41.2 H D Monocytes % 10.1 Eosinophils % 2.5 Basophils % 2.5 H D - Medications Given in the ED: ED Medications Discontinued Medications Generic Name Dose Route Start Last Admin Trade Name Freq PRN Reason Stop Dose Admin Al Hydroxide/Mg Hydroxide 30 ml 02/15/18 22:58 02/15/18 23:00 Mylanta Oral Suspension - PO 02/15/18 22:59 30 ml ONCE ONE Administration Famotidine/Sodium Chloride 20 mg in 50 mls @ 100 mls/hr 02/15/18 22:57 23:00 Pepcid 20 Mg Premixed Ivpb - IVPB 02/15/18 23:26 100 mls/hr ONCE ONE Administration <Ernestine Snyder - Last Filed: 02/16/18 00:07> - LABORATORY CBC & Chemistry Diagram: 02/15/18 23:18 02/15/18 23:18 <Amada Alamo - Last Filed: 02/16/18 05:23> Medical Decision Making - Medical Decision Making 02/15/18 22:59 Sava 63 YOM with h/o mesothelioma with long history of EtOH abuse, GERD p/w alcohol intoxication, c/o chest, abdominal and chronic back pain. No trauma. Last seen yesterday but left prior to full eval. Prior ED visits for detox and alcohol w/d. Drinks vodka daily, undomiciled. some limitation in history due to intoxication and going back to sleep. Alcohol intoxication DDx. alcohol intoxication, alcohol withdrawal. drug intoxication. pancreatitis, hepatitis, biliary colic, gastritis, alcoholic gastritis/pancreatitis. electrolyte abnormalities. Angina, ACS, costochondritis labs and lytes with chronic anemia, mild hypernatremia, but hydrated. remainder of lytes wnll. EKG refused, states his pain improved, and more heartburn - sober when he made decision and declined ekg. trop negative x1. etoh level elevated, monitored for alcohol w/d, no acute derangements or delirium. pt monitored closely in the ED, sobriety hold. remained comfortable, no acute events, no evidence of acute alcohol w/d. VS remain stable. at time of discharge , clinically improved, sober, speech clear, gait stable. no acute neuro changes , normal mental status. no evidence of SI or HI or psychosis. discharge in stable condition. offered detox and resources for ETOH abuse. prompt follow up encouraged. 02/16/18 00:34 02/16/18 05:16 02/16/18 05:23 <Amada Alamo - Last Filed: 02/16/18 05:23> *DC/Admit/Observation/Transfer - Attestations Scribe Attestion: 02/16/18 00:08 Documentation prepared by Ernestine Snyder, acting as adjunct faculty for medical terminology for Amada Alamo MD, <Ernestine Snyder - Last Filed: 02/16/18 00:07> - Discharge Dispostion Decision to Admit order: No <Amada Alamo - Last Filed: 02/16/18 05:23> Diagnosis at time of Disposition: Alcohol abuse with intoxication, Abdominal pain - Discharge Dispostion Disposition: HOME Condition at time of disposition: Improved - Referrals Referrals: Lisa White MD [Staff Physician] - Orin Ornelas MD [Staff Physician] - - Patient Instructions Printed Discharge Instructions: DI for Alcohol Abuse, DI for Abdominal Pain- Adult Additional Instructions: you were evaluated for your pain, you were also intoxicated your blood work within normal limits you feel improved with medications. detox resources given for your alcohol needs/abuse/dependence
[2018-02-15] MEDS ORDERED: FAMOTIDINE 20 MG/50 ML IVPB 20 MG/50 ML MG IVPB ONE (22:57)
[2018-02-15] MEDS ORDERED: MAG HYDROX/AL HYDROX/SIMETH 30 ML UNIT-DOSE CUP PO ONE (22:58)
[2018-02-15 23:27] LABS: BASO % 2.5 % (0-2.0); EOS % 2.5 % (0-4.5); HEMOGLOBIN 10.1 GM/dL (11.7-16.9); LYMPH % 41.2 % (8-40); MCH 28.7 pg (25.7-33.7); MCHC 32.5 g/dl (32.0-35.9); MEAN CELL VOLUME 88.3 fl (80-96); MEAN PLT VOLUME 7.3 fl (7.5-11.1); MONO % 10.1 % (3.8-10.2); NEUT % 43.7 % (42.8-82.8); PLATELET COUNT 266 K/MM3 (134-434); RBC 3.51 M/mm3 (4.00-5.60); WHITE BLOOD COUNT 5.2 K/mm3 (4.0-10.0)
[2018-02-15 23:41] VITALS: BMI 36.6
[2018-02-15 23:50] LABS: ALBUMIN 2.9 g/dl (3.4-5.0); ALK PHOS 122 U/L (45-117); ANION GAP 12 MMOL/L (8-16); BILIRUBIN,TOTAL 0.4 mg/dL (0.2-1.0); BLOOD UREA NITROGEN 5 mg/dL (7-18); CHLORIDE 109 mmol/L (98-107); CO2 26 mmol/L (21-32); CREATININE 0.6 mg/dL (0.7-1.3); GLUCOSE,RANDOM 76 mg/dL (74-106); POTASSIUM 3.6 mmol/L (3.5-5.1); SGOT/AST 42 U/L (15-37); SGPT/ALT 23 U/L (12-78); SODIUM 147 mmol/L (136-145); TOT PROT 6.4 g/dl (6.4-8.2)
[2018-02-16] MEDS ORDERED: SODIUM CHLORIDE 0.9% 500 ML INFUS.BAG IV ONE (00:27)
[2018-02-16 06:24] VITALS: PULSE 78; TEMP 98.4
[2018-02-16 06:25] VITALS: BP 149/70
== END 2018-02-16 06:25 | disposition home or self-care (01) ==
LOC: JER 21:46
PROC: 3E033GC Introduction of Other Therapeutic Substance into Peripheral Vein, Percutaneous Approach (ICD-10-PCS; principal; 2018-02-15)
DX: F10.220 Alcohol dependence with intoxication, uncomplicated (principal); I10 Essential (primary) hypertension; C45.9 Mesothelioma, unspecified; Z59.0 Homelessness
CPT/HCPCS: 36415; 80053; 80307; 83690; 84484; 85025; 96365; 99283-25

== ENCOUNTER 2018-02-28 21:38 | Emergency (ER) | payer OTHER ==
--- NOTE | 2018-02-28 21:51 | PDOC ---
History of Present Illness - History of Present Illness Initial Comments: 02/28/18 21:53 Mr. De Leon is a 63 yo male w/ pmh of halfway alcohol abuse and mesothelioma who presents for evaluation of back pain. Patient is extremely well known to ER and has been evaluated / admitted several times for intoxication and falls (most recent 02/20-02/21). Patient reports he has had significant back pain for the past week following a fall. Denies any alcohol intake today as he didn't feel like drinking. Last drink yesterday. <Kelvin Kee - Last Filed: 02/28/18 23:43> <Rusty Montgomery - Last Filed: 03/01/18 06:07> - General Stated Complaint: INTOX/BACK PAIN Past History - Past Medical History Anemia: No Asthma: No Cancer: Yes (mesothelioma) Cardiac Disorders: No CVA: No COPD: No CHF: No DVT: No Dementia: No Diabetes: No GI Disorders: No Disorders: No HTN: Yes Hypercholesterolemia: No Kidney Stones: No Liver Disease: No Psychiatric Problems: Yes (alcoholism) Seizures: No Thyroid Disease: No - Surgical History Abdominal Surgery: No Appendectomy: No Cardiac Surgery: No Cholecystectomy: No Lung Surgery: No Neurologic Surgery: No Orthopedic Surgery: No - Family Disease History Family Disease History: CA: Mother - Reproductive History Testicular Surgery: No - Immunization History TDAP Vaccination: Yes Immunization Up to Date: Yes - Suicide/Smoking/Psychosocial Hx Smoking Status: No Smoking History: Never smoked Have you smoked in the past 12 months: No Number of Cigarettes Smoked Daily: 4 If you are a former smoker, when did you quit?: 0 Cigars Per Day: 0 'Breaking Loose' booklet given: 09/22/17 Hx Alcohol Use: Yes Drug/Substance Use Hx: No Substance Use Type: Alcohol Hx Substance Use Treatment: Yes (Detoxes and rehab in past) <Kelvin Kee - Last Filed: 02/28/18 23:43> <Rusty Montgomery - Last Filed: 03/01/18 06:07> - Past Medical History Allergies/Adverse Reactions: Allergies Allergy/AdvReac Type Severity Reaction Status Date / Time Fish Containing Products Allergy Mild Swelling Verified 02/28/18 21:53 No Known Drug Allergies Allergy Verified 02/28/18 21:53 Home Medications: Ambulatory Orders Amlodipine Besylate [Norvasc -] 5 mg PO DAILY #30 tablet 02/21/18 Review of Systems - Review of Systems Comments:: 02/28/18 22:07 GENERAL/CONSTITUTIONAL: No fever or chills. No weakness. HEAD, EYES, EARS, NOSE AND THROAT: No change in vision. No ear pain or discharge. No sore throat. CARDIOVASCULAR: No chest pain or shortness of breath RESPIRATORY: No cough, wheezing, or hemoptysis. GASTROINTESTINAL: No nausea, vomiting, diarrhea or constipation. GENITOURINARY: No dysuria, frequency, or change in urination. MUSCULOSKELETAL: +Back pain as described. SKIN: No rash NEUROLOGIC: No headache, vertigo, loss of consciousness, or change in strength/ sensation. ENDOCRINE: No increased thirst. No abnormal weight change HEMATOLOGIC/LYMPHATIC: No anemia, easy bleeding, or history of blood clots. ALLERGIC/IMMUNOLOGIC: No hives or skin allergy. <Kelvin Kee - Last Filed: 02/28/18 23:43> *Physical Exam - Physical Exam Comments: 02/28/18 22:07 GENERAL: Awake, alert, and fully oriented, in no acute distress HEAD: No signs of trauma, normocephalic, atraumatic EYES: PERRLA, EOMI, sclera anicteric, conjunctiva clear ENT: Auricles normal inspection, hearing grossly normal, nares patent, oropharynx clear without exudates. Moist mucosa NECK: Normal ROM, supple, no lymphadenopathy, JVD, or masses LUNGS: No distress, speaks full sentences, clear to auscultation bilaterally HEART: Regular rate and rhythm, normal S1 and S2, no murmurs, rubs or gallops, peripheral pulses normal and equal bilaterally. ABDOMEN: Soft, nontender, normoactive bowel sounds. No guarding, no rebound. No masses EXTREMITIES: Normal inspection, Normal range of motion, no edema. No clubbing or cyanosis. NEUROLOGICAL: +Unable to assess at this time. SKIN: Warm, Dry, normal turgor, no rashes or lesions noted. <Kelvin Kee - Last Filed: 02/28/18 23:43> - Vital Signs Last Vital Signs Temp Pulse Resp BP Pulse Ox 97.9 F 94 H 18 109/61 97 02/28/18 21:54 02/28/18 21:54 02/28/18 21:54 02/28/18 21:54 02/28/18 22:05 <Rusty Montgomery - Last Filed: 03/01/18 06:07> ED Treatment Course - Medications Given in the ED: ED Medications Discontinued Medications Generic Name Dose Route Start Last Admin Trade Name Francisco Javier PRN Reason Stop Dose Admin Chlordiazepoxide HCl 50 mg 02/28/18 22:00 02/28/18 22:25 Librium - PO 02/28/18 22:01 50 mg ONCE ONE Administration Diazepam 2 mg 02/28/18 23:23 02/28/18 23:43 Valium - PO 02/28/18 23:24 2 mg ONCE ONE Administration Ketorolac Tromethamine 15 mg 02/28/18 22:03 02/28/18 22:25 Toradol Injection - IM 02/28/18 22:04 15 mg ONCE ONE Administration Methocarbamol 500 mg 03/01/18 02:34 03/01/18 02:55 Robaxin - PO 03/01/18 02:35 500 mg ONCE ONE Administration <Rusty Montgomery - Last Filed: 03/01/18 06:07> Medical Decision Making - Medical Decision Making 02/28/18 22:34 Mr. De Leon is a 63 yo male w/ pmh as described who presents for evaluation of back pain. Patient given librium for withdrawal prevention and toradol for relief of back pain. Patient seen to be choosing snacks from vending machine without difficulty on repeat evaluation. No difficulty walking, normal gait. 02/28/18 23:26 Patient continues to report back pain. 2mg valium given for further relief from symptoms. 02/28/18 23:43 Patient signed out to Dr. Montgomery for further evaluation. <Kelvin Kee - Last Filed: 02/28/18 23:43> *DC/Admit/Observation/Transfer <Kelvin Kee - Last Filed: 02/28/18 23:43> - Discharge Dispostion Decision to Admit order: No <Rusty Montgomery - Last Filed: 03/01/18 06:07> Diagnosis at time of Disposition: Back pain Qualifiers: Back pain location: low back pain Chronicity: chronic Back pain laterality: unspecified Sciatica presence: unspecified whether sciatica present Qualified Code(s): M54.5 - Low back pain - Discharge Dispostion Disposition: HOME Condition at time of disposition: Fair
[2018-02-28 21:56] VITALS: BMI 32.0
[2018-02-28] MEDS ORDERED: chlordiazePOXIDE HCL 25 MG CAPSULE PO ONE (22:00)
[2018-02-28] MEDS ORDERED: KETOROLAC TROMETHAMINE 15 MG/ML VIAL IM ONE (22:03)
[2018-02-28] MEDS ORDERED: KETOROLAC TROMETHAMINE 15 MG/ML VIAL ONE (22:11)
[2018-02-28] MEDS ORDERED: chlordiazePOXIDE HCL 25 MG CAPSULE ONE (22:11)
--- NOTE | 2018-02-28 22:49 | PDOC ---
Attending Attestation - Resident Resident Name: Kelvin Kee - ED Attending Attestation I have performed the following: I have examined & evaluated the patient, The case was reviewed & discussed with the resident, I agree w/resident's findings & plan, Exceptions are as noted - HPI HPI: 02/28/18 22:45 63 yo male who is well known to our facility presents with back pain, he is ambulatory head no scalp lacerations and no forehead hematomas neck no cervical vertebral tenderness lungs ctra b/l cvs [id number] abd protuberant ext no acute tenderness,old left arm deformity unchanged skin no cellulitis neuro alert and ambulatory - Physicial Exam PE: 03/03/18 02:37 PLEASE SEE ABOVE PHYSICAL EXAM - Medical Decision Making 02/28/18 22:49 imp musculoskeletal pain
[2018-02-28] MEDS ORDERED: diazePAM 2 MG TABLET PO ONE (23:23)
[2018-02-28] MEDS ORDERED: diazePAM 2 MG TABLET ONE (23:40)
[2018-03-01] MEDS ORDERED: METHOCARBAMOL 500 MG TABLET PO ONE (02:34)
[2018-03-01] MEDS ORDERED: METHOCARBAMOL 500 MG TABLET ONE (02:49)
--- NOTE | 2018-03-01 07:22 | PDOC ---
*Physical Exam - Vital Signs Last Vital Signs Temp Pulse Resp BP Pulse Ox 97.9 F 85 18 136/93 100 02/28/18 21:54 03/01/18 06:21 03/01/18 06:21 03/01/18 06:21 03/01/18 06:21 - Physical Exam Comments: GENERAL: Awake, alert, and fully oriented, in no acute distress HEAD: No signs of trauma, normocephalic, atraumatic EYES: PERRLA, EOMI, sclera anicteric, conjunctiva clear ENT: Hearing grossly normal, nares patent, oropharynx clear without exudates. Moist mucosa EXTREMITIES : Normal inspection, Normal range of motion, no edema. No clubbing or cyanosis NEUROLOGICAL: Cranial nerves II through XII grossly intact. Normal speech, normal gait, no focal sensorimotor deficits SKIN: Warm, Dry, normal turgor, no rashes or lesions noted 03/01/18 08:22 ED Treatment Course - Medications Given in the ED: ED Medications Discontinued Medications Generic Name Dose Route Start Last Admin Trade Name Freq PRN Reason Stop Dose Admin Chlordiazepoxide HCl 50 mg 02/28/18 22:00 02/28/18 22:25 Librium - PO 02/28/18 22:01 50 mg ONCE ONE Administration Diazepam 2 mg 02/28/18 23:23 02/28/18 23:43 Valium - PO 02/28/18 23:24 2 mg ONCE ONE Administration Ketorolac Tromethamine 15 mg 02/28/18 22:03 02/28/18 22:25 Toradol Injection - IM 02/28/18 22:04 15 mg ONCE ONE Administration Methocarbamol 500 mg 03/01/18 02:34 03/01/18 02:55 Robaxin - PO 03/01/18 02:35 500 mg ONCE ONE Administration Medical Decision Making - Medical Decision Making I have assumed care of the patient from Dr. Montgomery, who has discussed the clinical presentation, work-up, and ED course thus far. I have reviewed the patients medical record and ED course and agree with all aspects of care thus far. Patient pending CT results CT significant for acute oblique T12 vertebral body fracture w/o retropulsion or definite involvement of the posterior elements. 2 separate subacute fx of L 12th rib Subacute fx of L L1 and L2 transverse processes No paraspinal hematoma Patient ambulating independently in the ED Will give patient referral for Talon Lockhart for neurosurgery 03/01/18 07:12 *DC/Admit/Observation/Transfer Diagnosis at time of Disposition: Back pain Qualifiers: Back pain location: low back pain Chronicity: chronic Back pain laterality: unspecified Sciatica presence: unspecified whether sciatica present Qualified Code(s): M54.5 - Low back pain T12 vertebral fracture Qualifiers: Encounter type: initial encounter Fracture type: closed Fracture morphology: unspecified fracture morphology Qualified Code(s): S22.089A - Unspecified fracture of T11-T12 vertebra, initial encounter for closed fracture - Discharge Dispostion Disposition: HOME Condition at time of disposition: Fair Decision to Admit order: No - Referrals Referrals: [facility] [place] [facility] [place] [Provider Group] Edilberto Lockhart MD [Staff Physician] - - Patient Instructions Printed Discharge Instructions: DI for Vertebral Fracture Additional Instructions: You were seen today in the Emergency Department for back pain and found to have a T12 vertebral body fracture. Please refer to the handouts provided at discharge. Please follow up with neurosurgery. Social work looked into resources and you are able to call [facility] at [phone] for transportation to your appointments. Additionally, calling the doctor's office at which you have an appointment to inquire if they can provide transportation as well. Return to the Emergency Department if you develop fevers, worsening symptoms, or new concerning symptoms. - Post Discharge Activity
[2018-03-01 09:32] VITALS: BP 146/98; PULSE 90; TEMP 98.5
[2018-03-01] MEDS ORDERED: ACETAMINOPHEN 325 MG TABLET (FP) PO ONE (09:37)
== END 2018-03-01 09:43 | disposition home or self-care (01) ==
LOC: JER 21:38
PROC: 3E0233Z Introduction of Anti-inflammatory into Muscle, Percutaneous Approach (ICD-10-PCS; principal; 2018-02-28)
DX: M54.5 Low back pain (principal); F10.120 Alcohol abuse with intoxication, uncomplicated; I10 Essential (primary) hypertension; F10.10 Alcohol abuse, uncomplicated; C45.9 Mesothelioma, unspecified
CPT/HCPCS: 72131-TC; 96372; 99284-25

== ENCOUNTER 2018-03-03 21:55 | Emergency (ER) | payer OTHER ==
--- NOTE | 2018-03-03 22:05 | PDOC ---
Rapid Medical Evaluation Time Seen by Provider: 03/03/18 22:03 Medical Evaluation: Allergies Allergy/AdvReac Type Severity Reaction Status Date / Time Fish Containing Products Allergy Mild Swelling Verified 02/28/18 21:53 No Known Drug Allergies Allergy Verified 02/28/18 21:53 03/03/18 22:05 I have performed a brief in-person evaluation of this patient. The patient presents with a chief complaint of:chronic back pain. Dx w/ possible acute oblique fx to T12 on CT 2 days ago, chronic rib fxs also seen Pertinent physical exam findings:unremarkable I have ordered the following:nothing The patient will proceed to the ED for further evaluation. Discharge Disposition - Diagnosis Back pain Qualifiers: Back pain location: low back pain Chronicity: unspecified Back pain laterality : unspecified Sciatica presence: without sciatica Qualified Code(s): M54.5 - Low back pain - Referrals - Patient Instructions - Post Discharge Activity
[2018-03-03 22:07] VITALS: BP 118/84; PULSE 95; TEMP 98; BMI 32.0
== END 2018-03-04 05:19 | disposition left against medical advice (07) ==
LOC: JERFT 21:55 → JER 21:55
DX: Z53.21 Procedure and treatment not carried out due to patient leaving prior to being seen by health care provider (principal)
CPT/HCPCS: 99281-25

== ENCOUNTER 2018-03-04 18:37 | Emergency (ER) | payer OTHER ==
[2018-03-04 19:12] VITALS: BP 131/90; PULSE 98; TEMP 97.6; BMI 27.9
--- NOTE | 2018-03-04 19:57 | PDOC ---
History of Present Illness - General Chief Complaint: Alcohol intoxication Stated Complaint: INTOX/back pain Time Seen by Provider: 03/04/18 19:18 - History of Present Illness Initial Comments: 03/04/18 21:30 The patient is a 63 year old male with a history of chronic back pain, HTN, Alcoholism well known to our ED who presents for alcohol intoxication. The patient is brought in by EMS due to alcohol intoxication complaining of his chronic back pain. He denies any new complaints at this time and otherwise denies fevers, chills, SOB, chest pain, nausea, vomiting, abdominal pain, or changes with urination or bowel movements. Past History - Past Medical History Allergies/Adverse Reactions: Allergies Allergy/AdvReac Type Severity Reaction Status Date / Time Fish Containing Products Allergy Mild Swelling Verified 03/04/18 19:01 No Known Drug Allergies Allergy Verified 03/04/18 19:01 Home Medications: Ambulatory Orders Amlodipine Besylate [Norvasc -] 5 mg PO DAILY #30 tablet 02/21/18 Anemia: No Asthma: No Cancer: Yes (mesothelioma) Cardiac Disorders: No CVA: No COPD: No CHF: No DVT: No Dementia: No Diabetes: No GI Disorders: No Disorders: No HTN: Yes Hypercholesterolemia: No Kidney Stones: No Liver Disease: No Psychiatric Problems: Yes (alcoholism) Seizures: No Thyroid Disease: No - Surgical History Abdominal Surgery: No Appendectomy: No Cardiac Surgery: No Cholecystectomy: No Lung Surgery: No Neurologic Surgery: No Orthopedic Surgery: No - Family Disease History Family Disease History: CA: Mother - Reproductive History Testicular Surgery: No - Immunization History TDAP Vaccination: Yes Immunization Up to Date: Yes - Suicide/Smoking/Psychosocial Hx Smoking Status: No Smoking History: Never smoked Have you smoked in the past 12 months: No Number of Cigarettes Smoked Daily: 4 If you are a former smoker, when did you quit?: 0 Cigars Per Day: 0 Information on smoking cessation initiated: No 'Breaking Loose' booklet given: 09/22/17 Hx Alcohol Use: No Drug/Substance Use Hx: No Substance Use Type: Alcohol Hx Substance Use Treatment: Yes (Detoxes and rehab in past) Review of Systems - Review of Systems Comments:: 03/04/18 21:32 Constitutional: No fevers, chills, fatigue, malaise HEENT: No Rhinorrhea, nasal congestion, visual changes Cardiovascular: No chest pain, syncope, palpitations, lightheadedness Respiratory: No Cough, SOB, Hemoptysis, Gastrointestinal: No Abdominal pain, Nausea, Vomiting, Constipation, Diarrhea, Melena Genitourinary: No Dysuria, Frequency, Urgency, Hesitancy, Hematuria, Flank pain Musculoskeletal: Back pain. No Myalgia, arthralgia Skin: No rashes, itching, bruising, pallor Neurologic: No Headache, Dizziness, Numbness, Weakness, or Tingling Psychiatric: No Hallucinations. No SI or HI *Physical Exam - Vital Signs Last Vital Signs Temp Pulse Resp BP Pulse Ox 97.6 F 98 H 16 131/90 96 03/04/18 18:50 03/04/18 18:50 03/04/18 18:50 03/04/18 18:50 03/04/18 18:50 - Physical Exam Comments: 03/04/18 21:32 General Appearance: Nourished. Intoxicated. Alcohol on Breath. No Apparent Distress HEENT: No Pharyngeal Erythema, Tonsillar Exudate, Tonsillar Erythema Neck: No Cervical Lymphadenopathy Respiratory/Chest: Lungs Clear, Normal Breath Sounds. No Crackles, Rales, Rhonchi, Wheezing Cardiovascular: Regular Rhythm, Regular Rate. No Murmur, Gallops, Rubs Gastrointestinal/Abdominal: Normal Bowel Sounds, Soft. No Guarding, Rebound, Tenderness Musculoskeletal: No CVA Tenderness Extremity: Normal Capillary Refill Integumentary: Normal Color, Dry, Warm Neurologic: Fully Oriented, Alert, Normal Mood/Affect, Normal Response, Medical Decision Making - Medical Decision Making 03/04/18 21:37 The patient is a 63 year old male with a history of chronic back pain, HTN, Alcoholism well known to our ED who presents for alcohol intoxication. Given the patient's history and physical exam, we do not believe further lab work up is required at this time. We will monitor the patient for sobriety here in the ED. 03/05/18 06:26 Patient is ambulating without difficulty and is stable for discharge. We discussed the plan and return precautions with the patient who voiced understanding and is agreeable. *DC/Admit/Observation/Transfer Diagnosis at time of Disposition: Intoxication - Discharge Dispostion Disposition: HOME Condition at time of disposition: Stable Decision to Admit order: No - Referrals Referrals: [facility] [place] [facility] [place] [Provider Group] - Patient Instructions Printed Discharge Instructions: DI for Alcohol Abuse Additional Instructions: Please return to the ER if you experience concerning or worsening symptoms including worsening difficulty breathing, weakness, or chest pain. Please call to schedule a follow up appointment with your primary care provider within 2-3 days to discuss your ER visit and further management of your symptoms. - Post Discharge Activity
--- NOTE | 2018-03-04 22:23 | PDOC ---
Attending Attestation - Resident Resident Name: Smith Dunbar - ED Attending Attestation I have performed the following: I have examined & evaluated the patient, The case was reviewed & discussed with the resident, I agree w/resident's findings & plan, Exceptions are as noted - HPI HPI: 03/04/18 22:22 The patient is a 62 year old male with a significant past medical history of mesothelioma and chronic alcoholism who presents to the ER with alcohol intoxication. Patient denies any pain or other complaints. History limited secondary to alcohol intoxication. The patient denies chest pain, shortness of breath, headache, and dizziness. Denies fever, chills, nausea, vomit, diarrhea, and constipation. Denies dysuria, frequency, urgency, and hematuria. Allergies: NKDA Past surgical history: None reported. Social history: Alcohol abuse. No reported cigarette or drug use. PCP: Dr. Garima Bridges - Physicial Exam PE: 03/04/18 22:22 agree with resident exam - Medical Decision Making 03/04/18 22:22 63yo M well known to the ED presents with ETOH intox. No evidence of trauma at this time. Will observe and reassess for clinical sobriety. 03/05/18 06:53 Patient ambulating in the ED with a steady gait. Is clinically sober at this time. No evidence of trauma. Patient feels well and requests discharge. I discussed the physical exam findings, ancillary test results and final diagnoses with the patient. I answered all of the patient's questions. The patient was satisfied with the care received and felt comfortable with the discharge plan and treatment plan. The patient will call their primary care physician within 24 hours to arrange follow-up and will return to the Emergency Department with any new, persistent or worsening symptoms.
== END 2018-03-05 06:50 | disposition home or self-care (01) ==
LOC: JER 18:37
DX: F10.220 Alcohol dependence with intoxication, uncomplicated (principal); I10 Essential (primary) hypertension; M54.5 Low back pain; G89.29 Other chronic pain; C45.9 Mesothelioma, unspecified; Z91.013 Allergy to seafood; Z59.0 Homelessness
CPT/HCPCS: 99281-25

== ENCOUNTER → 2018-03-08 | Emergency (ER) | payer OTHER ==
[~2018-03-08] MED LIST changes: +ACETAMINOPHEN 500 MG TABLET (FP) PO ONE; -FOLIC ACID 1 MG TABLET (FP) PO ONE; -MULTIVITAMINS (DAILY MVI) TABLET (FP) PO ONE; -POTASSIUM CHLORIDE TABS 20 MEQ TABLET.ER (FP) PO ONE; -THIAMINE HCL 100 MG TABLET (FP) PO ONE
--- NOTE | 2018-03-08 19:48 | PDOC ---
History of Present Illness - General Stated Complaint: BACK PAIN Time Seen by Provider: 03/08/18 19:47 - History of Present Illness Initial Comments: 63 year old male with PMH of back pain, mesothelioma, HTN, and severe Alcoholism well known to our ED who presents for alcohol intoxication. He was brought in by EMS after he was found outside. He denies fevers, chills, SOB, chest pain, nausea, vomiting, abdominal pain, or bowel/ bladder incontinence. 03/08/18 21:18 03/08/18 21:44 Past History - Past Medical History Allergies/Adverse Reactions: Allergies Allergy/AdvReac Type Severity Reaction Status Date / Time Fish Containing Products Allergy Mild Swelling Verified 03/04/18 19:01 No Known Drug Allergies Allergy Verified 03/04/18 19:01 Home Medications: Ambulatory Orders Amlodipine Besylate [Norvasc -] 5 mg PO DAILY #30 tablet 02/21/18 Anemia: No Asthma: No Cancer: Yes (mesothelioma) Cardiac Disorders: No CVA: No COPD: No CHF: No DVT: No Dementia: No Diabetes: No GI Disorders: No Disorders: No HTN: Yes Hypercholesterolemia: No Kidney Stones: No Liver Disease: No Psychiatric Problems: Yes (alcoholism) Seizures: No Thyroid Disease: No - Surgical History Abdominal Surgery: No Appendectomy: No Cardiac Surgery: No Cholecystectomy: No Lung Surgery: No Neurologic Surgery: No Orthopedic Surgery: No - Family Disease History Family Disease History: CA: Mother - Reproductive History Testicular Surgery: No - Immunization History TDAP Vaccination: Yes Immunization Up to Date: Yes - Suicide/Smoking/Psychosocial Hx Smoking Status: No Smoking History: Never smoked Have you smoked in the past 12 months: No Number of Cigarettes Smoked Daily: 4 If you are a former smoker, when did you quit?: 0 Cigars Per Day: 0 'Breaking Loose' booklet given: 09/22/17 Hx Alcohol Use: Yes Drug/Substance Use Hx: No Substance Use Type: Alcohol Hx Substance Use Treatment: Yes (Detoxes and rehab in past) Review of Systems - Review of Systems Constitutional: No: Chills, Diaphoresis, Fever, Weakness HEENTM: No: Blurred Vision, Tearing, Recent change in vision, Double Vision Respiratory: No: Cough, Orthopnea, Shortness of Breath Cardiac (ROS): No: Chest Pain, Edema, Irregular Heart Rate, Lightheadedness ABD/GI: No: Constipated, Diarrhea, Nausea, Vomiting : No: Burning, Dysuria, Discharge, Frequency, Testicular Pain Musculoskeletal: Yes: Back Pain. No: Joint Pain, Muscle Weakness Integumentary: No: Bruising, Erythema, Flushing, Lesions Neurological: No: Headache, Numbness, Paresthesia, Seizure, Tingling, Ataxia Psychiatric: No: Anxiety, Depression, Frequent Crying, Stressors Endocrine: No: Increased Urine, Unexplained Weight Gain Hematologic/Lymphatic: No: Anemia, Blood Clots, Easy Bleeding *Physical Exam - Physical Exam General Appearance: Yes: Nourished, Appropriately Dressed, Intoxicated. No: Apparent Distress HEENT: positive: EOMI, DOUGLAS, Normal ENT Inspection, Normal Voice Neck: positive: Trachea midline, Normal Thyroid, Supple. negative: Tender, Rigid Respiratory/Chest: positive: Lungs Clear, Normal Breath Sounds. negative: Chest Tender, Respiratory Distress, Accessory Muscle Use Cardiovascular: positive: Regular Rhythm, Regular Rate Gastrointestinal/Abdominal: positive: Normal Bowel Sounds, Flat, Soft. negative : Tender Musculoskeletal: positive: Vertebral Tenderness (lumbar vetebral tenderness). negative: Normal Inspection Integumentary: positive: Normal Color, Dry, Warm Neurologic: positive: Fully Oriented, Alert, Normal Mood/Affect, Normal Response , Other (slightly ataxic gait) Medical Decision Making - Medical Decision Making 63 year old male presenting acutely intoxicated with back pain. His back laboy resolved after 975 of Tylenol and a turkey sandwich + apple juice. I went to reassess the patient for clinical sobriety and he had called a cab and left the premises per his nurse. He seemed stable per the nurse and was advised to stay but refused further treatment. 03/09/18 00:06 *DC/Admit/Observation/Transfer Diagnosis at time of Disposition: Intoxication - Discharge Dispostion Disposition: ELOPED Condition at time of disposition: Improved Decision to Admit order: No - Referrals - Patient Instructions - Post Discharge Activity
[2018-03-08 20:06] VITALS: BP 116/72; PULSE 95; TEMP 98; BMI 35.9
--- NOTE | 2018-03-08 22:10 | PDOC ---
Attending Attestation - Resident Resident Name: Ronald Rizzo - ED Attending Attestation I have performed the following: I have examined & evaluated the patient, The case was reviewed & discussed with the resident, I agree w/resident's findings & plan, Exceptions are as noted - HPI HPI: 63 yo M history EtOH, well-known to this ED presents with intoxication, c/o low back pain. No recent trauma, no complaints at present. - Physicial Exam PE: GENERAL: Awake, alert, oriented to person and place. No distress. HEAD: No signs of trauma EYES: PERRLA, EOMI, sclera anicteric, conjunctiva clear ENT: Auricles normal inspection, hearing grossly normal, nares patent, oropharynx clear without exudates. Moist mucosa NECK: Normal ROM, supple, no lymphadenopathy, JVD, or masses LUNGS: Breath sounds equal, clear to auscultation bilaterally. No wheezes, and no crackles HEART: Regular rate and rhythm, normal S1 and S2, no murmurs, rubs or gallops ABDOMEN: Soft, nontender, normoactive bowel sounds. No guarding, no rebound. No masses EXTREMITIES: Normal range of motion, no edema. No clubbing or cyanosis. No cords, erythema, or tenderness NEUROLOGICAL: Cranial nerves II through XII grossly intact. Slurred speech. Motor and sensation intact. SKIN: Warm, Dry, normal turgor, no rashes or lesions noted. - Medical Decision Making Pt with intoxication, no visible trauma. Will DC when clinically sober, stable gait.
== END | disposition left against medical advice (07) ==
LOC: JER 19:39
DX: F10.120 Alcohol abuse with intoxication, uncomplicated (principal); C45.9 Mesothelioma, unspecified
CPT/HCPCS: 99281-25

== ENCOUNTER 2018-03-11 12:53 | Emergency (ER) | payer OTHER ==
[2018-03-11 13:13] VITALS: BP 138/86; PULSE 86; TEMP 98.4; BMI 83.8
--- NOTE | 2018-03-11 13:28 | PDOC ---
History of Present Illness - General Chief Complaint: Back Pain Stated Complaint: REVISIT Time Seen by Provider: 03/11/18 13:12 - History of Present Illness Initial Comments: 03/11/18 13:30 63 year old male with PMH of back pain, mesothelioma, HTN, and severe Alcoholism well known to our ED presents for with alcohol intoxication and back pain. He states this back pain is the same as his typical back pain for which he has been seen multiple times in the past month. He had a lumbar CT scan on which showed chronic fractures of the head of the 11th and 12th ribs. His back pain is in this area. He denies any new symptoms but said his back pain has worsened. He denies recent fevers, chills, or infections. Denies bowel or bladder complaints. Denies saddle anesthesia. He admits to drinking a half a pint of Romanian vodka this morning. Past History - Past Medical History Allergies/Adverse Reactions: Allergies Allergy/AdvReac Type Severity Reaction Status Date / Time Fish Containing Products Allergy Mild Swelling Verified 03/04/18 19:01 No Known Drug Allergies Allergy Verified 03/04/18 19:01 Home Medications: Ambulatory Orders Amlodipine Besylate [Norvasc -] 5 mg PO DAILY #30 tablet 02/21/18 Anemia: No Asthma: No Cancer: Yes (mesothelioma) Cardiac Disorders: No CVA: No COPD: No CHF: No DVT: No Dementia: No Diabetes: No GI Disorders: No Disorders: No HTN: Yes Hypercholesterolemia: No Kidney Stones: No Liver Disease: No Psychiatric Problems: Yes (alcoholism) Seizures: No Thyroid Disease: No - Surgical History Abdominal Surgery: No Appendectomy: No Cardiac Surgery: No Cholecystectomy: No Lung Surgery: No Neurologic Surgery: No Orthopedic Surgery: No - Family Disease History Family Disease History: CA: Mother - Reproductive History Testicular Surgery: No - Immunization History TDAP Vaccination: Yes Immunization Up to Date: Yes - Suicide/Smoking/Psychosocial Hx Smoking Status: No Smoking History: Never smoked Have you smoked in the past 12 months: No Number of Cigarettes Smoked Daily: 4 If you are a former smoker, when did you quit?: 0 Cigars Per Day: 0 Information on smoking cessation initiated: No 'Breaking Loose' booklet given: 09/22/17 Hx Alcohol Use: Yes Drug/Substance Use Hx: No Substance Use Type: Alcohol Hx Substance Use Treatment: Yes (Detoxes and rehab in past) Review of Systems - Review of Systems Able to Perform ROS?: Yes Comments:: 03/11/18 13:41 CONSTITUTIONAL: Absent: fever, chills, diaphoresis, generalized weakness, malaise, loss of appetite HEENT: Absent: rhinorrhea, nasal congestion, throat pain, throat swelling, difficulty swallowing, mouth swelling, ear pain, eye pain, visual Changes CARDIOVASCULAR: Absent: chest pain, syncope, palpitations, irregular heart rate, lightheadedness , peripheral edema RESPIRATORY: Present: dyspnea on exertion Absent: cough, shortness of breath, orthopnea, wheezing, stridor, hemoptysis GASTROINTESTINAL: Absent: abdominal pain, abdominal distension, nausea, vomiting, diarrhea, constipation, melena, hematochezia GENITOURINARY: Absent: dysuria, frequency, urgency, hesitancy, hematuria, flank pain, genital pain MUSCULOSKELETAL: Present: Myalgia Absent: arthralgia, joint swelling SKIN: Absent: rash, itching, pallor HEMATOLOGIC/IMMUNOLOGIC: Absent: easy bleeding, easy bruising, lymphadenopathy, frequent infections ENDOCRINE: Absent: unexplained weight gain, unexplained weight loss, heat intolerance, cold intolerance NEUROLOGIC: Absent: headache, focal weakness or paresthesias, dizziness, unsteady gait, seizure, mental status changes, bladder or bowel incontinence PSYCHIATRIC: Absent: anxiety, depression, suicidal or homicidal ideation, hallucinations. Is the patient limited Afghan proficient: No Constitutional: Yes: See HPI. No: Chills, Diaphoresis, Night Sweats HEENTM: Yes: See HPI. No: Blurred Vision, Double Vision Respiratory: Yes: SOB with Exertion. No: Cough, Shortness of Breath Cardiac (ROS): No: Chest Pain *Physical Exam - Vital Signs Last Vital Signs Temp Pulse Resp BP Pulse Ox 98.4 F 86 18 138/86 94 L 03/11/18 13:01 03/11/18 13:01 03/11/18 13:01 03/11/18 13:01 03/11/18 13:01 - Physical Exam Comments: 03/11/18 13:43 GENERAL: Patient is intoxicated and smells of alcohol and urine. Awake and alert. No acute distress. HEENT: Normocephalic, atraumatic. PERRLA, EOMI. No conjunctival pallor. Sclera are non- icteric. Moist mucous membranes. Oropharynx is clear. NECK: Supple. Full ROM. No JVD. No thyromegaly. No lymphadenopathy. CARDIOVASCULAR: Regular rate and rhythm. No murmurs, rubs, or gallops. Distal pulses are 2+ and symmetric. PULMONARY: No evidence of respiratory distress. Lungs clear to auscultation bilaterally. No wheezing, rales or rhonchi. ABDOMINAL: Soft. Non-tender. Non-distended. No rebound or guarding. No organomegaly. Normoactive bowel sounds. MUSCULOSKELETAL Normal range of motion at all joints. No bony deformities or tenderness. No CVA tenderness. EXTREMITIES: No cyanosis. No clubbing. No edema. No calf tenderness. SKIN: Warm and dry. Normal capillary refill. No rashes. No jaundice. NEUROLOGICAL: Patient is lethargic, and slurring his words. He is drunk. Cranial nerves 2-12 intact. Gait is wobbly. PSYCHIATRIC: Cooperative. Bad eye contact. intoxicated mood and affect. Medical Decision Making - Medical Decision Making 63 year old male with PMH of back pain, mesothelioma, HTN, and severe Alcoholism well known to our ED presents with alcohol intoxication and back pain. This is the same pain he presented with 2 days ago. Plan: Ibuprofen, robaxin, re-assess, wait until clinical sobriety. Re-assessment: Patient was still in pain after ibuprofen, tylenol, and robaxin. He walked out before we were able to re-assess his pain. 03/11/18 19:39 *DC/Admit/Observation/Transfer Diagnosis at time of Disposition: Intoxication, Alcohol abuse with intoxication, Alcohol dependence with intoxication - Discharge Dispostion Disposition: ELOPED Condition at time of disposition: Stable Decision to Admit order: No - Referrals Referrals: Toni Iyer MD [Staff Physician] - - Patient Instructions Printed Discharge Instructions: DI for Alcohol Abuse Additional Instructions: Please try to goto detox. It is important to get your drinking under control. Please return to the ER if you experience concerning or worsening symptoms including worsening difficulty breathing, weakness, or chest pain. Please call to schedule a follow up appointment with your primary care provider within 2-3 days to discuss your ER visit and further management of your symptoms. Print Language: CHINESE - Post Discharge Activity
[2018-03-11] MEDS ORDERED: METHOCARBAMOL 500 MG TABLET PO ONE ×2 (13:33→14:51)
[2018-03-11] MEDS ORDERED: IBUPROFEN 600 MG TABLET (FP) PO ONE ×2 (13:33→13:51)
--- NOTE | 2018-03-11 13:46 | PDOC ---
Attending Attestation - Resident Resident Name: Stevenson Jiang - ED Attending Attestation I have performed the following: I have examined & evaluated the patient, The case was reviewed & discussed with the resident, I agree w/resident's findings & plan, Exceptions are as noted - HPI HPI: 63y M hx of chronic back pain, mesothelioma, htn, etoh, well known to me presents with intoxication and his chronic back pain. no fever/chlls, urinary or bowel incontinence, recent trauma, numbness/tingling/weakness. on exam pt in no distress atremulous pt was observed in the ED no clinical history suggestive of infection, acute trauma, or cord compression treated with analgesioa and dc with outpatient fu - Physicial Exam PE: 03/14/18 16:39 see above - Medical Decision Making 03/14/18 16:39 see abpove
[2018-03-11] MEDS ORDERED: SODIUM CHLORIDE 0.9% 500 ML INFUS.BAG IV ONE (13:48)
[2018-03-11] MEDS ORDERED: METHOCARBAMOL 500 MG TABLET ONE (15:27)
== END 2018-03-11 19:40 | disposition left against medical advice (07) ==
LOC: JER 12:53
DX: F10.220 Alcohol dependence with intoxication, uncomplicated (principal); I10 Essential (primary) hypertension; C45.9 Mesothelioma, unspecified; Z59.0 Homelessness; Z91.013 Allergy to seafood
CPT/HCPCS: 99281-25

== ENCOUNTER 2018-03-25 22:42 | Emergency (ER) | payer OTHER ==
[2018-03-25 22:52] VITALS: BP 136/76; PULSE 82; TEMP 98; BMI 43.0
--- NOTE | 2018-03-26 01:01 | PDOC ---
History of Present Illness - General Chief Complaint: Alcohol intoxication Stated Complaint: INTOX Time Seen by Provider: 03/26/18 01:01 - History of Present Illness Initial Comments: 63 year very well known EtOh abuser presenting with back pain which is consistent with his previous presentations within the last few months. States he fell a few days back off of his park bench a few months prior. States that he does not want any intervention for his back but is considering a back brace. States that he drank a pint today. When asked what the pint consisted of, he laughs. Has an obvious abrasion over the back of his head and states that he fell and hit his head. Denies any fevers, chills, nausea, vomiting, diarrhea, constipation, or other symptoms. He becomes tearful occasionally while talking about his family issues and struggles with homelessness. 03/26/18 03:46 Past History - Past Medical History Allergies/Adverse Reactions: Allergies Allergy/AdvReac Type Severity Reaction Status Date / Time Fish Containing Products Allergy Mild Swelling Verified 03/25/18 22:52 No Known Drug Allergies Allergy Verified 03/25/18 22:52 Home Medications: Ambulatory Orders Amlodipine Besylate [Norvasc -] 5 mg PO DAILY #30 tablet 02/21/18 Anemia: No Asthma: No Cancer: Yes (mesothelioma) Cardiac Disorders: No CVA: No COPD: No CHF: No DVT: No Dementia: No Diabetes: No GI Disorders: No Disorders: No HTN: Yes Hypercholesterolemia: No Kidney Stones: No Liver Disease: No Psychiatric Problems: Yes (alcoholism) Seizures: No Thyroid Disease: No - Surgical History Abdominal Surgery: No Appendectomy: No Cardiac Surgery: No Cholecystectomy: No Lung Surgery: No Neurologic Surgery: No Orthopedic Surgery: No - Family Disease History Family Disease History: CA: Mother - Reproductive History Testicular Surgery: No - Immunization History TDAP Vaccination: Yes Immunization Up to Date: Yes - Suicide/Smoking/Psychosocial Hx Smoking Status: No Smoking History: Never smoked Have you smoked in the past 12 months: No Number of Cigarettes Smoked Daily: 4 If you are a former smoker, when did you quit?: 0 Cigars Per Day: 0 Information on smoking cessation initiated: No 'Breaking Loose' booklet given: 09/22/17 Hx Alcohol Use: Yes Drug/Substance Use Hx: Yes Substance Use Type: Alcohol Hx Substance Use Treatment: Yes (Detoxes and rehab in past) Review of Systems - Review of Systems Constitutional: No: Chills, Diaphoresis, Fever, Loss of Appetite HEENTM: No: Blurred Vision, Tearing, Cataracts, Ear Pain Respiratory: No: Cough, Orthopnea, Shortness of Breath Cardiac (ROS): No: Chest Pain, Edema, Irregular Heart Rate ABD/GI: No: Diarrhea, Nausea, Vomiting : No: Dysuria, Discharge, Frequency Musculoskeletal: Yes: Back Pain. No: Gout, Joint Pain Integumentary: Yes: Erythema, Lesions. No: Bruising, Lumps Neurological: No: Headache, Numbness, Paresthesia Psychiatric: No: Anxiety, Depression Endocrine: No: Excessive Sweating Hematologic/Lymphatic: No: Anemia, Blood Clots, Easy Bleeding *Physical Exam - Vital Signs Last Vital Signs Temp Pulse Resp BP Pulse Ox 98 F 82 18 136/76 100 03/25/18 22:50 03/25/18 22:50 03/25/18 22:50 03/25/18 22:50 03/25/18 22:50 - Physical Exam General Appearance: Yes: Nourished, Appropriately Dressed, Intoxicated. No: Apparent Distress HEENT: positive: EOMI, DOUGLAS, Normal ENT Inspection, Normal Voice, Other (small abrasion over the posterior superiorportion of his head) Neck: positive: Trachea midline, Normal Thyroid, Supple. negative: Tender, Rigid Respiratory/Chest: positive: Lungs Clear, Normal Breath Sounds. negative: Chest Tender, Respiratory Distress, Accessory Muscle Use Cardiovascular: positive: Regular Rhythm, Regular Rate Gastrointestinal/Abdominal: positive: Normal Bowel Sounds, Flat, Soft. negative : Tender Lymphatic: negative: Adenopathy, Tenderness Musculoskeletal: positive: Normal Inspection. negative: Decreased Range of Motion Extremity: positive: Normal Capillary Refill, Normal Inspection, Normal Range of Motion. negative: Tender Integumentary: positive: Normal Color, Dry, Warm Neurologic: positive: Fully Oriented, Alert, Normal Mood/Affect, Normal Response , Motor Strength 5/5, Other (ataxic gait with clear intoxication) Medical Decision Making - Medical Decision Making 63 year old male clearly intoxicated with abrasion on his head. Head CT negative , given Boostrix, and abrasion was cleaned and dressed. Patient given follow up instructions, etoh abstinence information, and return precautions. 03/26/18 06:26 *DC/Admit/Observation/Transfer Diagnosis at time of Disposition: Intoxication Abrasion head Qualifiers: Encounter type: initial encounter Qualified Code(s): S00.91XA - Abrasion of unspecified part of head, initial encounter - Discharge Dispostion Disposition: HOME Condition at time of disposition: Improved Decision to Admit order: No - Referrals Referrals: [facility] [place] [Provider Group] - Patient Instructions Printed Discharge Instructions: DI for Alcohol Abuse Additional Instructions: PLEASE STOP DRINKING!!!!!!!! It WILL KILL YOU!!! Please follow up with the PCP on this paper, please return to the ED if you have new or worsening symptoms. Print Language: UZBEK - Post Discharge Activity
--- NOTE | 2018-03-26 01:13 | PDOC ---
Attending Attestation - Resident Resident Name: Ronald Rizzo - ED Attending Attestation I have performed the following: I have examined & evaluated the patient, The case was reviewed & discussed with the resident, I agree w/resident's findings & plan, Exceptions are as noted - Medical Decision Making 03/26/18 01:12 I, Dr. Skey Rashid, DO, attest that this document has been prepared under my direction and personally reviewed by me in its entirety. I further attest, that it accurately reflects all work, treatment, procedures and medical decision -making performed by me. 03/26/18 01:12 a/p: 63yo male with alcohol use tonight -laceraiton without active bleeding to top of head -will obtain head ct to eval for ICH -will allow patient to metabolize etoh -will reassess <Skye Rashid - Last Filed: 03/26/18 01:11> - HPI HPI: 03/26/18 02:02 Patient is a 63 year old male with a significant past medical history of chronic back pain, mesothelioma, HTN, ETOH abuse, well known to the ED, who presents s/p alcohol intoxication. Patient comes into the ED intoxicated and with a laceration to the top of his head. HPI limited secondary to patients intoxication. Documentation prepared by Yuridia Bowers, acting as medical practice manager for Skye Rashid DO - Physicial Exam PE: 03/26/18 02:03 Constitutional: + Intoxicated, Disheveled. Head: + Abrasion to the top of head with blood. Normocephalic. Neurological: Alert and oriented to person, place, and time. Cranial nerves II -XII are grossly intact. Normal speech, speaking in full sentences. Strength is grossly symmetric. No sensory deficits. Psychiatric: Good eye contact. Normal interaction, affect and behavior. <Yuridia Bowers - Last Filed: 03/26/18 02:03>
[2018-03-26] MEDS ORDERED: DIPHTH,PERTUSS(ACELL),TET 0.5 ML DISP.SYRIN IM ONE (03:48)
== END 2018-03-26 06:35 | disposition home or self-care (01) ==
LOC: JER 22:42
PROC: 3E0234Z Introduction of Serum, Toxoid and Vaccine into Muscle, Percutaneous Approach (ICD-10-PCS; principal; 2018-03-25)
DX: F10.220 Alcohol dependence with intoxication, uncomplicated (principal); I10 Essential (primary) hypertension; C45.9 Mesothelioma, unspecified; S00.01XA Abrasion of scalp, initial encounter; W19.XXXA Unspecified fall, initial encounter; Y93.89 Activity, other specified; Y92.89 Other specified places as the place of occurrence of the external cause; Y99.8 Other external cause status
CPT/HCPCS: 70450-TC; 90715; 99283-25

== ENCOUNTER 2018-03-26 20:29 | Emergency (ER) | payer OTHER ==
--- NOTE | 2018-03-26 20:41 | PDOC ---
History of Present Illness - General Chief Complaint: Alcohol intoxication Stated Complaint: INTOX Time Seen by Provider: 03/26/18 20:33 - History of Present Illness Initial Comments: 63 year very well known EtOh abuser presenting with intoxicated and "aches and pains everywhere". Denies any new symptoms though. States that he drank a pint today. Has a well healing abrasion on the top of his head that this author saw yesterday. Denies any fevers, chills, nausea, vomiting, diarrhea, constipation, or other symptoms. States that he just wants to "sleep it off". 03/27/18 04:30 Past History - Past Medical History Allergies/Adverse Reactions: Allergies Allergy/AdvReac Type Severity Reaction Status Date / Time Fish Containing Products Allergy Mild Swelling Verified 03/26/18 20:37 No Known Drug Allergies Allergy Verified 03/26/18 20:37 Home Medications: Ambulatory Orders Amlodipine Besylate [Norvasc -] 5 mg PO DAILY #30 tablet 02/21/18 Anemia: No Asthma: No Cancer: Yes (mesothelioma) Cardiac Disorders: No CVA: No COPD: No CHF: No DVT: No Dementia: No Diabetes: No GI Disorders: No Disorders: No HTN: Yes Hypercholesterolemia: No Kidney Stones: No Liver Disease: No Psychiatric Problems: Yes (alcoholism) Seizures: No Thyroid Disease: No - Surgical History Abdominal Surgery: No Appendectomy: No Cardiac Surgery: No Cholecystectomy: No Lung Surgery: No Neurologic Surgery: No Orthopedic Surgery: No - Family Disease History Family Disease History: CA: Mother - Reproductive History Testicular Surgery: No - Immunization History TDAP Vaccination: Yes Immunization Up to Date: Yes - Suicide/Smoking/Psychosocial Hx Smoking Status: No Smoking History: Unknown if ever smoked Have you smoked in the past 12 months: No Number of Cigarettes Smoked Daily: 4 If you are a former smoker, when did you quit?: 0 Cigars Per Day: 0 'Breaking Loose' booklet given: 09/22/17 Hx Alcohol Use: Yes Drug/Substance Use Hx: No Substance Use Type: Alcohol Hx Substance Use Treatment: Yes (Detoxes and rehab in past) Review of Systems - Review of Systems Constitutional: No: Chills, Diaphoresis, Fever HEENTM: No: Blurred Vision, Recent change in vision Respiratory: No: Cough, Shortness of Breath Cardiac (ROS): No: Edema ABD/GI: No: Diarrhea, Nausea, Poor Appetite : No: Burning, Dysuria, Discharge Neurological: No: Headache, Numbness, Paresthesia Psychiatric: Yes: Depression, Frequent Crying. No: Anxiety Hematologic/Lymphatic: No: Anemia, Blood Clots, Easy Bleeding *Physical Exam - Vital Signs Last Vital Signs Temp Pulse Resp BP Pulse Ox 97.5 F L 93 H 20 123/84 98 03/26/18 20:37 03/26/18 20:37 03/26/18 20:37 03/26/18 20:37 03/26/18 20:37 - Physical Exam General Appearance: Yes: Appropriately Dressed. No: Nourished, Apparent Distress HEENT: positive: EOMI, DOUGLAS, Normal ENT Inspection, Normal Voice Neck: positive: Supple. negative: Tender, Trachea midline Respiratory/Chest: positive: Lungs Clear, Normal Breath Sounds. negative: Chest Tender Cardiovascular: positive: Regular Rhythm, Regular Rate Gastrointestinal/Abdominal: positive: Normal Bowel Sounds, Flat, Soft. negative : Tender Lymphatic: negative: Adenopathy, Tenderness Musculoskeletal: positive: Normal Inspection Extremity: positive: Normal Capillary Refill, Normal Inspection, Normal Range of Motion Integumentary: positive: Normal Color, Dry, Warm Neurologic: positive: Alert, Normal Mood/Affect, Normal Response, Motor Strength 5/5. negative: Fully Oriented Medical Decision Making - Medical Decision Making 63 year old presenting intoxicated. Currently clinically sober. Will DC with reutnr precautions and follow up instructions + sobriety information. 03/27/18 07:29 *DC/Admit/Observation/Transfer Diagnosis at time of Disposition: Back pain - Referrals - Patient Instructions Printed Discharge Instructions: DI for Alcohol Abuse Additional Instructions: Please stop drinking alcohol. Please return to the ED if you have any other problems. - Post Discharge Activity
[2018-03-26 20:50] VITALS: BMI 30.1
--- NOTE | 2018-03-26 21:00 | PDOC ---
Rapid Medical Evaluation Chief Complaint: Substance Abuse Time Seen by Provider: 03/26/18 20:33 Medical Evaluation: Allergies Allergy/AdvReac Type Severity Reaction Status Date / Time Fish Containing Products Allergy Mild Swelling Verified 03/26/18 17:02 No Known Drug Allergies Allergy Verified 03/26/18 17:02 03/26/18 20:33 c/o back pain. BIBA for evaluation. patient has been seen in this ER today x 4. PE: patient alert ox3. talking. healing laceration to scalp. A: alcohol abuse; back pain P; patient to the ER for further management of care, Discharge Disposition - Diagnosis Back pain Qualifiers: Back pain location: low back pain Chronicity: acute Back pain laterality: unspecified Sciatica presence: without sciatica Qualified Code(s): M54.5 - Low back pain - Referrals - Patient Instructions - Post Discharge Activity
--- NOTE | 2018-03-27 06:27 | PDOC ---
Attending Attestation - Resident Resident Name: Ronald Rizzo - ED Attending Attestation I have performed the following: I have examined & evaluated the patient, The case was reviewed & discussed with the resident, I agree w/resident's findings & plan - HPI HPI: 03/27/18 06:26 Pt is intox with alcohol; 3rd visit today. Pt has no place he wants to go other than here. - Physicial Exam PE: 03/27/18 06:26 Routine exam. No new findings. - Medical Decision Making 03/27/18 06:26 Pt will be allowed to sleep here and we will observe until he leaves.
[2018-03-27 07:47] VITALS: BP 103/56; PULSE 95; TEMP 98.9
== END 2018-03-27 08:03 | disposition home or self-care (01) ==
LOC: JER 20:29
DX: M54.9 Dorsalgia, unspecified (principal); I10 Essential (primary) hypertension; F10.20 Alcohol dependence, uncomplicated; C45.9 Mesothelioma, unspecified
CPT/HCPCS: 99282-25

== ENCOUNTER → 2018-03-26 | Emergency (ER) | payer OTHER ==
[2018-03-26 17:01] VITALS: BP 130/85; PULSE 92; TEMP 97.7; BMI 33.0
--- NOTE | 2018-03-26 17:32 | PDOC ---
Attending Attestation - Resident Resident Name: Sendy Munguiath - ED Attending Attestation I have performed the following: I have examined & evaluated the patient, The case was reviewed & discussed with the resident, I agree w/resident's findings & plan, Exceptions are as noted - HPI HPI: 03/26/18 17:50 63y M hx of chronic back pain, mesothelioma, htn, etoh, well known to me presents with intoxication and his chronic back pain. no fever/chlls, urinary or bowel incontinence, recent trauma, numbness/tingling/weakness. last had 1 pt of vojuan josea on exam pt in no distress alert, oriented atremulous will observe in the ED for sobriety - Physicial Exam PE: 03/29/18 08:34 see above - Medical Decision Making pt eloped prior to discharge
--- NOTE | 2018-03-26 19:19 | PDOC ---
History of Present Illness - General Chief Complaint: Alcohol intoxication Stated Complaint: INTOX Time Seen by Provider: 03/26/18 17:03 - History of Present Illness Initial Comments: 63yo M with PMH of chronic back pain, mesothelioma, HTN, ETOH abuse presenting with back pain. When asked what the ED can do for him, he said absolutely nothing. Patient was tangential historian and tearful at times. No saddle anesthesia, shooting pain down his legs, or incontinence. Denied any fevers, chills, chest pain, or shortness of breath. Past History - Past Medical History Allergies/Adverse Reactions: Allergies Allergy/AdvReac Type Severity Reaction Status Date / Time Fish Containing Products Allergy Mild Swelling Verified 03/26/18 20:37 No Known Drug Allergies Allergy Verified 03/26/18 20:37 Home Medications: Ambulatory Orders Amlodipine Besylate [Norvasc -] 5 mg PO DAILY #30 tablet 02/21/18 Anemia: No Asthma: No Cancer: Yes (mesothelioma) Cardiac Disorders: No CVA: No COPD: No CHF: No DVT: No Dementia: No Diabetes: No GI Disorders: No Disorders: No HTN: Yes Hypercholesterolemia: No Kidney Stones: No Liver Disease: No Psychiatric Problems: Yes (alcoholism) Seizures: No Thyroid Disease: No - Surgical History Abdominal Surgery: No Appendectomy: No Cardiac Surgery: No Cholecystectomy: No Lung Surgery: No Neurologic Surgery: No Orthopedic Surgery: No - Family Disease History Family Disease History: CA: Mother - Reproductive History Testicular Surgery: No - Immunization History TDAP Vaccination: Yes Immunization Up to Date: Yes - Suicide/Smoking/Psychosocial Hx Smoking Status: No Smoking History: Never smoked Have you smoked in the past 12 months: No Number of Cigarettes Smoked Daily: 4 If you are a former smoker, when did you quit?: 0 Cigars Per Day: 0 Information on smoking cessation initiated: No 'Breaking Loose' booklet given: 09/22/17 Hx Alcohol Use: No Drug/Substance Use Hx: No Substance Use Type: Alcohol Hx Substance Use Treatment: Yes (Detoxes and rehab in past) Review of Systems - Review of Systems Comments:: Constitutional: no fever, no chills HEENT: no throat pain, no dysphagia Cardiovascular: no chest pain, no palpitations Respiratory: no cough, no shortness of breath Gastrointestinal: no abdominal pain, no nausea, no vomiting Musculoskeletal: +back pain Skin: no rash, no itching Neurologic: no headache, no dizziness *Physical Exam - Vital Signs Last Vital Signs Temp Pulse Resp BP Pulse Ox 97.7 F 92 H 18 130/85 97 03/26/18 16:51 03/26/18 16:51 03/26/18 16:51 03/26/18 16:51 03/26/18 16:51 - Physical Exam Comments: General: Awake, alert, and fully oriented, somnolent Head: no signs of trauma Eyes: EOMI ENT: Dry mucus membranes Neck: Normal ROM, supple Lungs: Lungs clear, Normal breath sounds Cardio: Regular rhythm, S1 and S2 present Abdomen: Soft, nontender Back: Tender to palpation in lumbar area, midline, no step-offs/deformities/ fluctuance; no overlying wound or lesion; negative straight leg test bilaterally Extremities: Normal range of motion, Distal pulses present SKIN: Warm, Dry, normal turgor Neurologic: Cranial nerves II through XII grossly intact. Slurred speech Medical Decision Making - Medical Decision Making Patient eloped. 03/26/18 19:19 *DC/Admit/Observation/Transfer Diagnosis at time of Disposition: Back pain - Discharge Dispostion Disposition: ELOPED Condition at time of disposition: Stable - Referrals - Patient Instructions - Post Discharge Activity
== END | disposition left against medical advice (07) ==
LOC: JER 16:17
DX: F10.220 Alcohol dependence with intoxication, uncomplicated (principal); M54.5 Low back pain; I10 Essential (primary) hypertension; C45.9 Mesothelioma, unspecified; Z59.0 Homelessness; Z91.013 Allergy to seafood
CPT/HCPCS: 99282-25

== ENCOUNTER 2018-03-28 16:38 | Emergency (ER) | payer OTHER ==
--- NOTE | 2018-03-28 17:26 | PDOC ---
History of Present Illness - General History Source: Patient Exam Limitations: Intoxication - History of Present Illness Initial Comments: 03/28/18 17:23 This is a 63 YOM with h/o heavy EtOH use, chronic back pain, mesothelioma, and HTN, who p/w alcohol intoxication and unchanged chronic left lower back pain not involving the midline back. He notes the pain is mild, non-radiating. He denies any recent falls or other trauma/injuries. His last EtOH intake was just [facility] to the ED. When asked about his goals of this emergency room visit, he explains he is trying to get to staff members in this emergency room ( paraphrased). When further probed, he agrees he would like to stay long enough to sober up. He is not requesting any pain medication or other intervention and states there are no new symptoms he is experiencing at this time. He denies f/c/ n/v/d/c, chest pain, SOB, new n/t/w focally, headache, vision change, dysuria, hematuria, or other symptoms. He notes mild lightheadedness which he states normally comes along with his intoxication. <Anabell Dover - Last Filed: 03/28/18 17:56> <Fabiana Woodard - Last Filed: 03/28/18 18:04> - General Chief Complaint: Alcohol intoxication Stated Complaint: INTOX Time Seen by Provider: 03/28/18 17:20 Past History - Past Medical History Anemia: No Asthma: No Cancer: Yes (mesothelioma) Cardiac Disorders: No CVA: No COPD: No CHF: No DVT: No Dementia: No Diabetes: No GI Disorders: No Disorders: No HTN: Yes Hypercholesterolemia: No Kidney Stones: No Liver Disease: No Psychiatric Problems: Yes (alcoholism) Seizures: No Thyroid Disease: No - Surgical History Abdominal Surgery: No Appendectomy: No Cardiac Surgery: No Cholecystectomy: No Lung Surgery: No Neurologic Surgery: No Orthopedic Surgery: No - Family Disease History Family Disease History: CA: Mother - Reproductive History Testicular Surgery: No - Immunization History TDAP Vaccination: Yes Immunization Up to Date: Yes - Suicide/Smoking/Psychosocial Hx Smoking Status: No Smoking History: Unknown if ever smoked Have you smoked in the past 12 months: No Number of Cigarettes Smoked Daily: 4 If you are a former smoker, when did you quit?: 0 Cigars Per Day: 0 'Breaking Loose' booklet given: 09/22/17 Hx Alcohol Use: Yes Drug/Substance Use Hx: No Substance Use Type: Alcohol Hx Substance Use Treatment: Yes (Detoxes and rehab in past) <Anabell Dover - Last Filed: 03/28/18 17:56> <Fabiana Woodard - Last Filed: 03/28/18 18:04> - Past Medical History Allergies/Adverse Reactions: Allergies Allergy/AdvReac Type Severity Reaction Status Date / Time Fish Containing Products Allergy Mild Swelling Verified 03/26/18 20:37 No Known Drug Allergies Allergy Verified 03/26/18 20:37 Home Medications: Ambulatory Orders Amlodipine Besylate [Norvasc -] 5 mg PO DAILY #30 tablet 02/21/18 Review of Systems - Review of Systems Able to Perform ROS?: Yes Comments:: GEN: no fever, chills, generalized weakness, malaise, change in activity level, unintentional weight change, loss of appetite, or difficulty sleeping HEENT: no ear pain, congestion, sore throat, rhinorrhea, nosebleed, vision change, or eye pain CV: no chest pain, palpitations, syncope, or exercise intolerance RESP: no cough, wheezing, or SOB GI: no nausea, vomiting, diarrhea, constipation, black/bloody stool, abdominal pain, or appetite change : no dysuria, hematuria, frequency, incontinence, retention, pruritis, bleeding, or discharge MSK: back pain, no weakness, joint swelling, limping, joint pain, or muscle pain NEURO: no headaches, seizures, numbness, tingling, focal weakness, or head trauma PSYCH: intoxication, alcohol use, no insomnia, suicidality, or homicidality SKIN: no jaundice, rashes, cuts, bruises, scars, or lesions <Anabell Dover - Last Filed: 03/28/18 17:56> *Physical Exam - Vital Signs Initial Vital Signs Temp Pulse Resp BP Pulse Ox 97.1 F L 91 H 17 118/81 91 L 03/28/18 17:26 03/28/18 17:26 03/28/18 17:26 03/28/18 17:26 03/28/18 17:26 GENERAL: pleasant adult male who appears intoxicated but well-appearing, nourished, A/Ox4, no acute distress, speaking in full sentences, answers questions, HEENT: PERRLA, EOMI, moist mucous membranes, no e/o facial trauma NECK: No midline ttp, no spinal stepoff or deformity, full ROM, supple CARDIOVASCULAR: Regular rate and rhythm, normal S1S2, no MGR, capillary refill < 2 seconds, extremities warm and well-perfused LUNGS/RESPIRATORY: No respiratory distress, normal and symmetric chest movements during respirations, lungs CTA bilaterally GI/ABDOMEN: Symmetric appearance, normoactive bowel sounds, soft, no tenderness to palpation, no midline pulsatile masses, no palpated organomegaly : No CVA tenderness BACK: No midline ttp or stepoff or deformity of thoracic or lumbar spine, minimal left lumbar paraspinous tenderness to palpation EXTREMITIES: distal pulses 2+, warm and well-perfused SKIN: Warm and dry, no pallor, no jaundice, no bruising, no rash, no skin breakdown, no cuts, no lesions NEUROLOGICAL: GCS 15, CN II-XII grossly intact, ambulating with normal gait, moving all extremities, 5/5 strength proximally and distally, no facial droop, no decreased sensation <Anabell Dover - Last Filed: 03/28/18 17:56> - Vital Signs Last Vital Signs Temp Pulse Resp BP Pulse Ox 97.1 F L 91 H 17 118/81 91 L 03/28/18 17:26 03/28/18 17:26 03/28/18 17:26 03/28/18 17:26 03/28/18 17:26 <Fabiana Woodard - Last Filed: 03/28/18 18:04> Medical Decision Making - Medical Decision Making 03/28/18 17:26 Pt with h/o heavy alcohol use p/w Exam: As noted in Physical Exam section. DDX IBNLT: intoxication, withdrawal (w/wo seizures), DT, hepatic encephalopathy , ICH, UGIB (can cause AMS), LGIB, SBP, metabolic derangement, coingestion, hepatorenal syndrome, hepatopulmonary syndrome, Wernickes encephalopathy, Korsakoff syndrome, trauma, etc. W/U ordered: CBCD CMP Mg Phos Lipase Coags T&S Lactate BCx Troponin CK CKMB LDH Ammonia B12 EKG CXR FOBT UA UCx TX ordered: Banana Bag EKG: Reviewed; results as noted in ECG Review section. CXR: CT: Labs: Reassessment: Repeat VS: ADMIT The Pt is unsafe for discharge at this time. They require further hospital observation, workup, and treatment. Microblog sent to [facility] for admission.Blank Decision to Admit order is placed per ED protocol. Spoke with admitting team medical center representative, in agreement Pt to be admitted.Decision to Admit order corrected with admitting team covering attendings name. Decision to Admit order placed to admitting team covering attending. DISCHARGE This patient has gotten significant relief of symptoms while in the ED.On last reassessment, vitals are wnl, pain is reasonably controlled, and exam is benign.Workup is not concerning for emergency-level pathology at this time.This patient is appropriate for discharge with close outpatient follow up. They are comfortable with this plan and will follow up with their primary care provider in 1-3 days. Specific return precautions are discussed and they will come back to the ER if necessary. <Anabell Dover - Last Filed: 03/28/18 17:56> *DC/Admit/Observation/Transfer - Discharge Dispostion Decision to Admit order: No <Anabell Dover - Last Filed: 03/28/18 17:56> - Discharge Dispostion Decision to Admit order: No <Fabiana Woodard - Last Filed: 03/28/18 18:04> Diagnosis at time of Disposition: Intoxication Chronic back pain Qualifiers: Back pain location: low back pain Back pain laterality: left Sciatica presence : without sciatica Qualified Code(s): M54.5 - Low back pain - Discharge Dispostion Disposition: HOME Condition at time of disposition: Stable - Patient Instructions Printed Discharge Instructions: DI for Alcohol Abuse Additional Instructions: YOU WERE SEEN IN THE ER FOR ALCOHOL INTOXICATION AND FOR CHRONIC LEFT LOWER BACK PAIN. WE DID A FULL HISTORY AND PHYSICAL EXAM AN WE DID NOT SEE ANY SIGNS OF AN EMERGENCY. WE MADE SURE YOU WERE SOBER AND STEADY ON YOUR FEET, AND GAVE YOU A MEAL HERE IN THE DEPARTMENT TO MAKE SURE YOU COULD KEEP IT DOWN. AFTER OUR ASSESSMENT, WE DO NOT BELIEVE THERE IS A MEDICAL EMERGENCY AT THIS TIME, AND WE BELIEVE IT IS SAFE TO GO HOME. PLEASE FOLLOW UP WITH YOUR PRIMARY CARE PROVIDER IN 1-3 DAYS. CALL THEIR CLINIC SOON POSSIBLE, TELL THEM YOU WERE SEEN IN THE ER, AND TELL THEM YOU NEED AN APPOINTMENT. IF THERE ARE ANY NEW OR WORSENING SYMPTOMS, ESPECIALLY WORSENING BACK PAIN, NEW NUMBNESS/TINGLING, NEW WEAKNESS OF ONE SIDE OR PART OF YOUR BODY, NEW HEADACHE, FALLS OR OTHER TRAUMA, FEVER, NECK PAIN, SEIZURES, HALLUCINATIONS, OR ANY OTHER CONCERNING SYMPTOMS, PLEASE COME BACK TO THE ER AT ANY TIME (24 HOURS A DAY). IF THE SYMPTOMS APPEAR SEVERE OR LIFE-THREATENING, PLEASE CALL 911 TO HAVE AN AMBULANCE TAKE YOU TO THE ER.
[2018-03-28 17:32] VITALS: BMI 34.4
--- NOTE | 2018-03-28 17:40 | PDOC ---
Attending Attestation - Resident Resident Name: Anabell Dover - ED Attending Attestation I have performed the following: I have examined & evaluated the patient, The case was reviewed & discussed with the resident, I agree w/resident's findings & plan, Exceptions are as noted - HPI HPI: 63 yo M history EtOH abuse, well known to this hospital, presents with EtOH intoxication. No recent falls. Denies any complaints. No recent trauma. Requesting food. - Physicial Exam PE: GENERAL: Awake, alert, and fully oriented, in no acute distress. Poor hygiene. HEAD: No signs of trauma EYES: PERRLA, EOMI, sclera anicteric, conjunctiva clear ENT: Auricles normal inspection, hearing grossly normal, nares patent, oropharynx clear without exudates. Moist mucosa NECK: Normal ROM, supple, no lymphadenopathy, JVD, or masses LUNGS: Breath sounds equal, clear to auscultation bilaterally. No wheezes, and no crackles HEART: Regular rate and rhythm, normal S1 and S2, no murmurs, rubs or gallops ABDOMEN: Soft, nontender, normoactive bowel sounds. No guarding, no rebound. No masses EXTREMITIES: Normal range of motion, no edema. No clubbing or cyanosis. No cords, erythema, or tenderness NEUROLOGICAL: Cranial nerves II through XII grossly intact. Normal speech, normal gait. Motor and sensation intact. SKIN: Warm, Dry, normal turgor, no rashes or lesions noted. - Medical Decision Making 03/28/18 18:10 Pt awake and alert, eating tray of food. Stable for DC home.
[2018-03-29 01:40] VITALS: BP 117/79; PULSE 74; TEMP 98
== END 2018-03-29 07:01 | disposition home or self-care (01) ==
LOC: JER 16:38
DX: F10.220 Alcohol dependence with intoxication, uncomplicated (principal); I10 Essential (primary) hypertension; C45.9 Mesothelioma, unspecified; M54.5 Low back pain; G89.29 Other chronic pain; Z59.0 Homelessness
CPT/HCPCS: 99283-25

== ENCOUNTER 2018-03-30 16:11 | Emergency (ER) | payer OTHER ==
[2018-03-30 17:15] VITALS: BMI 33.0
--- NOTE | 2018-03-30 17:33 | PDOC ---
History of Present Illness - General Chief Complaint: Alcohol intoxication Stated Complaint: INTOX Time Seen by Provider: 03/30/18 16:32 History Source: Patient Exam Limitations: Intoxication - History of Present Illness Initial Comments: 03/30/18 17:04 53-year-old male brought in by EMS for public intoxication. [place]. Patient states had no complaints but was brought in for medical evaluation. Patient denies headache, visual changes, chest pain or shortness of breath. Timing/Duration: unsure Associated Symptoms: reports: denies symptoms Past History - Travel Traveled outside of the country in the last 30 days: No - Past Medical History Allergies/Adverse Reactions: Allergies Allergy/AdvReac Type Severity Reaction Status Date / Time Fish Containing Products Allergy Mild Swelling Verified 03/30/18 16:17 No Known Drug Allergies Allergy Verified 03/30/18 16:17 Home Medications: Ambulatory Orders Amlodipine Besylate [Norvasc -] 5 mg PO DAILY #30 tablet 02/21/18 Anemia: No Asthma: No Cancer: Yes (mesothelioma) Cardiac Disorders: No CVA: No COPD: No CHF: No DVT: No Dementia: No Diabetes: No GI Disorders: No Disorders: No HTN: Yes Hypercholesterolemia: No Kidney Stones: No Liver Disease: No Psychiatric Problems: Yes (alcoholism) Seizures: No Thyroid Disease: No - Surgical History Abdominal Surgery: No Appendectomy: No Cardiac Surgery: No Cholecystectomy: No Lung Surgery: No Neurologic Surgery: No Orthopedic Surgery: No - Family Disease History Family Disease History: CA: Mother - Reproductive History Testicular Surgery: No - Immunization History TDAP Vaccination: Yes Immunization Up to Date: Yes - Suicide/Smoking/Psychosocial Hx Smoking Status: No Smoking History: Unknown if ever smoked Have you smoked in the past 12 months: No Number of Cigarettes Smoked Daily: 4 If you are a former smoker, when did you quit?: 0 Cigars Per Day: 0 'Breaking Loose' booklet given: 09/22/17 Hx Alcohol Use: Yes Drug/Substance Use Hx: No Substance Use Type: Alcohol Hx Substance Use Treatment: Yes (Detoxes and rehab in past) Patient Lives Alone: Yes Lives with/in: lives alone Review of Systems - Review of Systems Able to Perform ROS?: Yes Constitutional: No: Symptoms Reported HEENTM: No: Symptoms Reported Respiratory: No: Symptoms reported Cardiac (ROS): No: Symptoms Reported ABD/GI: No: Symptoms Reported : No: Symptoms Reported Musculoskeletal: No: Symptoms Reported Integumentary: No: Symptoms Reported Neurological: No: Symptoms reported Hematologic/Lymphatic: No: Symptoms Reported *Physical Exam - Vital Signs Last Vital Signs Temp Pulse Resp BP Pulse Ox 97.5 F L 87 18 108/74 99 03/30/18 16:40 03/30/18 16:40 03/30/18 16:40 03/30/18 16:40 03/30/18 16:40 - Physical Exam General Appearance: Yes: Nourished, Disheveled, Intoxicated. No: Apparent Distress HEENT: positive: D[place]AS Neck: positive: Supple Respiratory/Chest: positive: Lungs Clear, Normal Breath Sounds. negative: Respiratory Distress, Accessory Muscle Use Cardiovascular: positive: Regular Rhythm, Regular Rate. negative: Murmur Gastrointestinal/Abdominal: positive: Soft. negative: Tenderness Integumentary: positive: Dry, Warm, Pale Neurologic: positive: Normal Mood/Affect, Motor Strength 5/5 (moving on stretcher actively) Medical Decision Making - Medical Decision Making 03/30/18 18:45 Patient here for public intoxication /medical clearance. Patient has no complaint upon arrival. Patient with normal vital signs. Patient requesting something to eat and then wants to leave. *DC/Admit/Observation/Transfer Diagnosis at time of Disposition: Intoxication - Discharge Dispostion Disposition: HOME Condition at time of disposition: Good - Referrals - Patient Instructions Printed Discharge Instructions: DI for Alcohol Abuse Additional Instructions: Please consider a detox program for Your alcohol use - Post Discharge Activity
--- NOTE | 2018-03-31 02:50 | PDOC ---
*Physical Exam - Vital Signs Last Vital Signs Temp Pulse Resp BP Pulse Ox 97.5 F L 87 18 108/74 99 03/30/18 16:40 03/30/18 16:40 03/30/18 16:40 03/30/18 16:40 03/30/18 16:40 - Physical Exam General Appearance: Yes: Disheveled, Alcohol on Breath HEENT: positive: Other (normocephalic. old abrasion to scalp) Medical Decision Making - Medical Decision Making 03/31/18 02:49 patient is asleep arousable. has walked to the bathroom without difficulty 03/31/18 05:33 patient is awake alert, walked out o fthe ER *DC/Admit/Observation/Transfer Diagnosis at time of Disposition: Intoxication, Alcohol abuse - Discharge Dispostion Disposition: HOME Condition at time of disposition: Good - Referrals - Patient Instructions Printed Discharge Instructions: DI for Alcohol Abuse Additional Instructions: Please consider a detox program for Your alcohol use - Post Discharge Activity
[2018-03-31 05:49] VITALS: BP 112/59; PULSE 89; TEMP 98.6
== END 2018-03-31 05:49 | disposition home or self-care (01) ==
LOC: JER 16:11
DX: F10.220 Alcohol dependence with intoxication, uncomplicated (principal); I10 Essential (primary) hypertension; C45.9 Mesothelioma, unspecified; Z59.0 Homelessness
CPT/HCPCS: 99282-25

== ENCOUNTER 2018-04-02 15:22 | Emergency (ER) | payer OTHER ==
[2018-04-02 16:25] VITALS: BP 135/86; PULSE 76; TEMP 97.4; BMI 33.0
--- NOTE | 2018-04-02 21:07 | PDOC ---
History of Present Illness - General Chief Complaint: Alcohol intoxication Stated Complaint: Alcohol intoxication Time Seen by Provider: 04/02/18 17:26 - History of Present Illness Initial Comments: 63 year very well known EtOh abuser presenting with acute alcohol intoxication after drinking a pint of vodka earlier today. Denies any fevers, chills, nausea , vomiting, diarrhea, constipation, or other symptoms. He becomes tearful occasionally while talking about his family issues and struggles with homelessness. Told the author that " If no one told you today, let me tell you. I love you!" 03/26/18 03:46 Past History - Past Medical History Allergies/Adverse Reactions: Allergies Allergy/AdvReac Type Severity Reaction Status Date / Time Fish Containing Products Allergy Mild Swelling Verified 04/05/18 09:12 No Known Drug Allergies Allergy Verified 04/05/18 09:12 Home Medications: Ambulatory Orders Amlodipine Besylate [Norvasc -] 5 mg PO DAILY #30 tablet 02/21/18 Anemia: No Asthma: No Cancer: Yes (mesothelioma) Cardiac Disorders: No CVA: No COPD: No CHF: No DVT: No Dementia: No Diabetes: No GI Disorders: No Disorders: No HTN: Yes Hypercholesterolemia: No Kidney Stones: No Liver Disease: No Psychiatric Problems: Yes (alcoholism) Seizures: No Thyroid Disease: No - Surgical History Abdominal Surgery: No Appendectomy: No Cardiac Surgery: No Cholecystectomy: No Lung Surgery: No Neurologic Surgery: No Orthopedic Surgery: No - Family Disease History Family Disease History: CA: Mother - Reproductive History Testicular Surgery: No - Immunization History TDAP Vaccination: Yes Immunization Up to Date: Yes - Suicide/Smoking/Psychosocial Hx Smoking Status: No Smoking History: Never smoked Have you smoked in the past 12 months: No Number of Cigarettes Smoked Daily: 4 If you are a former smoker, when did you quit?: 0 Cigars Per Day: 0 Information on smoking cessation initiated: No 'Breaking Loose' booklet given: 09/22/17 Hx Alcohol Use: No Drug/Substance Use Hx: No Substance Use Type: Alcohol Hx Substance Use Treatment: Yes (Detoxes and rehab in past) Review of Systems - Review of Systems Constitutional: No: Chills, Fever HEENTM: No: Blurred Vision, Tearing Respiratory: No: Cough, Orthopnea, Shortness of Breath Cardiac (ROS): No: Chest Pain, Irregular Heart Rate, Lightheadedness ABD/GI: No: Diarrhea, Nausea, Vomiting : No: Burning, Dysuria, Discharge Musculoskeletal: Yes: Back Pain. No: Joint Pain Integumentary: No: Bruising, Dryness, Erythema, Flushing, Lesions Neurological: No: Headache, Numbness, Paresthesia, Weakness Psychiatric: Yes: Frequent Crying. No: Anxiety, Depression Endocrine: No: See HPI, Excessive Sweating Hematologic/Lymphatic: No: Anemia, Blood Clots, Easy Bleeding *Physical Exam - Vital Signs Last Vital Signs Temp Pulse Resp BP Pulse Ox 97.4 F L 76 18 135/86 98 04/02/18 16:23 04/02/18 16:23 04/02/18 16:23 04/02/18 16:23 04/02/18 16:23 - Physical Exam General Appearance: Yes: Nourished, Appropriately Dressed, Alcohol on Breath, Intoxicated. No: Apparent Distress HEENT: positive: EOMI, Normal ENT Inspection. negative: Normal Voice (slightly slurred from active intoxication) Neck: positive: Trachea midline, Normal Thyroid, Supple. negative: Tender, Rigid Respiratory/Chest: positive: Lungs Clear, Normal Breath Sounds. negative: Chest Tender, Respiratory Distress, Accessory Muscle Use Cardiovascular: positive: Regular Rhythm, Regular Rate Gastrointestinal/Abdominal: positive: Normal Bowel Sounds, Flat, Soft. negative : Tender Musculoskeletal: positive: Normal Inspection. negative: Decreased Range of Motion Extremity: positive: Normal Inspection, Normal Range of Motion. negative: Tender Integumentary: positive: Normal Color, Dry, Warm Neurologic: positive: Fully Oriented, Alert, Normal Response, Motor Strength 5/5 , Other (Obviously intoxicated with slightly ataxic gait). negative: Normal Mood/Affect (Occasionally tearful but obviously intoxicated) Medical Decision Making - Medical Decision Making 63 year old male with frequent presentations for intoxication, presenting again for intoxication after drinking a pint of vodka earlier today. Patient is not interested in detox currently and just wants to rest after he was given a sandwich. Patient was signed out to Dr. Kumar in stable condition pending DC when clinically sober and oriented. *DC/Admit/Observation/Transfer Diagnosis at time of Disposition: Intoxication - Discharge Dispostion Disposition: HOME Condition at time of disposition: Stable - Referrals - Patient Instructions Printed Discharge Instructions: DI for Alcohol Abuse - Post Discharge Activity
--- NOTE | 2018-04-02 22:27 | PDOC ---
*Physical Exam - Vital Signs Last Vital Signs Temp Pulse Resp BP Pulse Ox 97.4 F L 76 18 135/86 98 04/02/18 16:23 04/02/18 16:23 04/02/18 16:23 04/02/18 16:23 04/02/18 16:23 Medical Decision Making - Medical Decision Making 04/02/18 22:26 I received pt on signout. He returns for alcohol intox. He is sleeping comfortably here. 04/03/18 06:43 Pt is alert and awake and he wants to go home. He states that he will take the buses home *DC/Admit/Observation/Transfer Diagnosis at time of Disposition: Intoxication - Discharge Dispostion Disposition: HOME Condition at time of disposition: Stable Decision to Admit order: No - Referrals - Patient Instructions Printed Discharge Instructions: DI for Alcohol Abuse - Post Discharge Activity
== END 2018-04-03 06:52 | disposition home or self-care (01) ==
LOC: JER 15:22
DX: F10.220 Alcohol dependence with intoxication, uncomplicated (principal); I10 Essential (primary) hypertension; C45.9 Mesothelioma, unspecified; Z59.0 Homelessness
CPT/HCPCS: 99282-25

== ENCOUNTER 2018-04-05 08:14 | Inpatient (IN) | payer OTHER ==
--- NOTE | 2018-04-05 08:51 | HP ---
CIWA Score - CIWA Score Nausea/Vomitin Muscle Tremors: 3 Anxiety: 2 Agitation: 2 Paroxysmal Sweats: 1-Minimal Palms Moist Orientation: 0-Oriented Tacttile Disturbances: 1-Very Mild Itch/Numbness Auditory Disturbances: 1-Very Mild Visual Disturbances: 0-None Headache: 2-Mild CIWA-Ar Total Score: 14 Admission ROS BHS - HPI Chief Complaint: i need help to stop drinking alcohol Allergies/Adverse Reactions: Allergies Allergy/AdvReac Type Severity Reaction Status Date / Time Fish Containing Products Allergy Mild Swelling Verified 04/05/18 09:12 No Known Drug Allergies Allergy Verified 04/05/18 09:12 History of Present Illness: this 63 years od male with extensive history of alcohol dependence since the age of 16,multiple admissions to detox but keep relapsing, history of alcohol related seizure and syncope last 04/04/[address], brought to er at [facility], ambulation with cane,unsteady gait,tremor history of hypertension non compliance ,did not take medication for 2 months history of mesolithioma longest period of sobriety 6 years Exam Limitations: No Limitations - Ebola screening Have you traveled outside of the country in the last 21 days: No Have you had contact with anyone from an Ebola affected area: No Do you have a fever: No - Review of Systems Constitutional: Loss of Appetite, Malaise, Night Sweats, Changes in sleep, Weakness, Unintentional Wgt. Loss EENT: reports: Nose Congestion Respiratory: reports: No Symptoms reported Cardiac: reports: Palpitations GI: reports: Nausea, Poor Appetite, Indigestion, Abdominal cramping : reports: No Symptoms Reported Musculoskeletal: reports: Back Pain, Muscle Pain Integumentary: reports: Dryness Neuro: reports: Headache, Tremors Endocrine: reports: No Symptoms Reported Hematology: reports: No Symptoms Reported Psychiatric: reports: No Sypmtoms Reported, Judgement Intact, Mood/Affect Appropiate, Orientated x3 Patient History - Patient Medical History Hx Anemia: No Hx Asthma: No Hx Chronic Obstructive Pulmonary Disease (COPD): No Hx Cancer: Yes (mesothelioma) Hx Cardiac Disorders: No Hx Congestive Heart Failure: No Hx Hypertension: Yes (non compliance) Hx Hypercholesterolemia: No Hx Pacemaker: No HX Cerebrovascular Accident: No Hx Seizures: No Hx Dementia: No Hx Diabetes: No Hx Gastrointestinal Disorders: No Hx Liver Disease: No Hx Genitourinary Disorders: No Hx Sexually Transmitted Disorders: No Hx Renal Disease (ESRD): No Hx Thyroid Disease: No Hx Human Immunodeficiency Virus (HIV): No (last 2011 negative) Hx Hepatitis C: No Hx Depression: No Hx Suicide Attempt: No Hx Bipolar Disorder: No Hx Schizophrenia: No Other Medical History: no suicidal,no homicidal - Patient Surgical History Past Surgical History: No Hx Neurologic Surgery: No Hx Cataract Extraction: No Hx Cardiac Surgery: No Hx Lung Surgery: No Hx Breast Surgery: No Hx Breast Biopsy: No Hx Abdominal Surgery: No Hx Appendectomy: No Hx Cholecystectomy: No Hx Genitourinary Surgery: No Hx Section: No Hx Orthopedic Surgery: No Hx Hysterectomy: No Anesthesia Reaction: No - PPD History Previous Implant?: Yes Documented Results: Negative w/o proof Implanted On Prior [facility] Admission?: Yes Date: 02/10/18 Results: 0 mm PPD to be Administered?: Yes - Smoking Cessation Smoking history: Never smoked Have you smoked in the past 12 months: No Aproximately how many cigarettes per day: 4 If you are a former smoker, when did you quit?: 0 Cigars Per Day: 0 Hx Chewing Tobacco Use: No - Substance & Tx. History Hx Alcohol Use: Yes Hx Substance Use: No Substance Use Type: Alcohol Hx Substance Use Treatment: Yes ([facility] 02/08/18to 02/12/18) - Substances Abused Alcohol Route: Oral Frequency: Daily Amount used: 1pint of vodka Age of first use: 16 Date of Last Use: 04/04/18 Family Disease History - Family Disease History Family Disease History: CA: Mother (), Brother (Colon CA), Other: Grandparent (ALCOHOLISM), Father (ALCOHOL,), Son () Admission Physical Exam S - Vital Signs Vital Signs: bp 164/102,p122,[id number].t97.7 - Physical General Appearance: Yes: Moderate Distress, Tremorous, Irritable, Sweating, Anxious HEENTM: Yes: Normal ENT Inspection, DOUGLAS, Pharynx Normal Respiratory: Yes: Lungs Clear, Normal Breath Sounds, No Respiratory Distress Neck: Yes: Within Normal Limits, Supple, Trachea in good position Breast: Yes: Within Normal Limits Cardiology: Yes: Tachycardia Abdominal: Yes: Within Normal Limits, Normal Bowel Sounds, Non Tender, Soft Genitourinary: Yes: Within Normal Limits Back: Yes: Muscle Spasm Extremities: Yes: Tremors Neurological: Yes: career specialist II-XII NML intact, Fully Oriented, Alert, Motor Strength 5/5 Integumentary: Yes: Dry Lymphatic: Yes: Within Normal Limits - Diagnostic (1) Alcohol dependence with uncomplicated withdrawal Current Visit: No Status: Chronic (2) Alcohol related seizure Current Visit: Yes Status: Acute (3) Syncope Current Visit: Yes Status: Acute (4) Essential hypertension Current Visit: Yes Status: Acute (5) Mesothelioma Current Visit: No Status: Chronic (6) Insomnia Current Visit: Yes Status: Acute (7) Dehydration Current Visit: Yes Status: Acute Cleared for Admission S - Detox or Rehab [facility] Level of Care: Medically Managed Detox Regimen/Protocol: Librium S Breath Alcohol Content Breath Alcohol Content: 0
[2018-04-05 08:56] VITALS: BMI 33.7
[2018-04-05] MEDS ORDERED: MAGNESIUM CITRATE 300 ML BOTTLE PO PRN (09:02)
[2018-04-05] MEDS ORDERED: MAGNESIUM HYDROX 2400MG/30ML ORAL SUSPENSION 30 ML CUP PO PRN (09:02)
[2018-04-05] MEDS ORDERED: hydrOXYzine PAMOATE 50 MG CAPSULE (FP) PO PRN (09:02)
[2018-04-05] MEDS ORDERED: MAG HYDROX/AL HYDROX/SIMETH 30 ML UNIT-DOSE CUP PO PRN (09:02)
[2018-04-05] MEDS ORDERED: P-EPHED 60MG/TRIPROLIDI 2.5MG TABLET PO PRN (09:02)
[2018-04-05] MEDS ORDERED: ACETAMINOPHEN 325 MG TABLET (FP) PO PRN (09:02)
[2018-04-05] MEDS ORDERED: chlordiazePOXIDE HCL 25 MG CAPSULE PO PRN (09:02)
[2018-04-05] MEDS ORDERED: MENTHOL/PHENOL 1 EACH UD MM PRN (09:02)
[2018-04-05] MEDS ORDERED: guaiFENesin/D-METHORPHAN HB 10 ML UNIT-DOSE CUPS PO PRN (09:02)
[2018-04-05] MEDS ORDERED: cloNIDine HCL 0.1 MG TABLET PO ONE (09:42)
[2018-04-05] MEDS: amLODIPine BESYLATE 5 MG TABLET (FP) PO SCH (10:36)
[2018-04-05] MEDS: chlordiazePOXIDE HCL 25 MG CAPSULE PO SCH ×3 (10:36→22:40)
[2018-04-05] MEDS: PRENATAL VITAMINS W/ FOLIC ACID TABLET (FP) PO SCH (10:37)
--- NOTE | 2018-04-05 14:37 | CONSULT ---
[facility] Psychiatric Consult - Data Date of interview: 04/05/18 Admission source: [facility] Identifying data: Re-admission to [facility] for this 63 y/o male seeking detoxification treatment on , for alcohol dependence. Patient is , a father of two (lost his son two months ago to a heart attack), homeless, unemployed and supported on SSI benefits. Substance Abuse History: Discussed in this interview. Mr De Leon admits to abusing alcohol (one pint of vodka daily) since age 16. History of numerous treatment failures (multiple detoxifications/rehabilitation care). Refer to current [facility] report for details : Smoking history: Never smoked. Have you smoked in the past 12 months: No. Aproximately how many cigarettes per day: 4. If you are a former smoker, when did you quit?: 0. Cigars Per Day: 0. Hx Chewing Tobacco Use: No. - Substance & Tx. History. Hx Alcohol Use: Yes. Hx Substance Use: No. Substance Use Type: Alcohol. Hx Substance Use Treatment: Yes ([facility] to 02/12/18). - Substances Abused. Alcohol. Route: Oral. Frequency: Daily. Amount used: 1pint of vodka. Age of first use: 16. Date of Last Use: 04/04/18 Medical History: Hypertension, chronic lumbar pain, obesity, recent fall in the street (04/04/18), due to syncopal attack and assisted ambulation with cane. Psychiatric History: Patient denies. Physical/Sexual Abuse/Trauma History: Saddened by the sudden of his son ( heart attack during sleep as per patient), two months ago. Grieving his loss. Additional Comment: Toxicology not available. Mental Status Exam - Mental Status Exam Alert and Oriented to: Time, Person Cognitive Function: Good Patient Appearance: Well Groomed (obese,edentulous) Mood: Nervous, Withdrawn Affect: Mood Congruent Patient Behavior: Fatigued, Cooperative Speech Pattern: Appropriate Voice Loudness: Normal Thought Process: Goal Oriented Thought Disorder: Not Present Hallucinations: Denies Suicidal Ideation: Denies Homicidal Ideation: Denies Insight/Judgement: Poor Sleep: Fair Appetite: Poor Gait/Station: Other (moves around with a cane) Psychiatric Findings - Problem List (Melvin 1, 2,3) (1) Alcohol dependence Current Visit: Yes Status: Acute Qualifiers: Substance use status: unspecified alcohol-induced disorder Qualified Code(s ): F10.29 - Alcohol dependence with unspecified alcohol-induced disorder (2) Bereavement Current Visit: Yes Status: Acute - Initial Treatment Plan Initial Treatment Plan: Psychoeducation. Support and empathy. Sleep hygiene. Detoxification in progress. Patient verbalizes interest for referral to [facility] for rehabilitation treatment. No indication for antidepressant medications at this time. Cognitive, individual, recreational therapy. City Administrator informs the patient of the option of naltrexone for relapse prevention. Mr De Leon declines to consider that therapeutic option. Falls precautions. Observation.
[2018-04-05] MEDS ORDERED: MELATONIN 5 MG TABLETS PO PRN (22:00)
[2018-04-05] MEDS: THIAMINE HCL 100 MG TABLET (FP) PO SCH (22:40)
[2018-04-06] MEDS: chlordiazePOXIDE HCL 25 MG CAPSULE PO SCH ×4 (06:17→22:13)
[2018-04-06 10:20] LABS: HEMATOCRIT 34.8 % (35.4-49); HEMOGLOBIN 10.8 GM/dL (11.7-16.9); MCHC 31.1 g/dl (32.0-35.9); MEAN CELL VOLUME 83.7 fl (80-96); MEAN PLT VOLUME 8.9 fl (7.5-11.1); PLATELET COUNT 315 K/MM3 (134-434); RBC 4.16 M/mm3 (4.00-5.60); RDW 20.5 % (11.9-15.9); WHITE BLOOD COUNT 9.4 K/mm3 (4.0-10.0)
[2018-04-06] MEDS: PRENATAL VITAMINS W/ FOLIC ACID TABLET (FP) PO SCH (10:24)
[2018-04-06] MEDS: amLODIPine BESYLATE 5 MG TABLET (FP) PO SCH (10:24)
[2018-04-06] MEDS: LIDOCAINE 5% TOPICAL PATCH TP SCH (10:26)
[2018-04-06 10:52] LABS: ALBUMIN 3.8 g/dl (3.4-5.0); ALK PHOS 133 U/L (45-117); ANION GAP 12 MMOL/L (8-16); BILIRUBIN,TOTAL 1.5 mg/dL (0.2-1); BLOOD UREA NITROGEN 6 mg/dL (7-18); CALCIUM 8.7 mg/dL (8.5-10.1); CHLORIDE 102 mmol/L (98-107); CO2 30 mmol/L (21-32); CREATININE 0.6 mg/dL (0.55-1.3); GLUCOSE,RANDOM 89 mg/dL (74-106); POTASSIUM 3.6 mmol/L (3.5-5.1); SGOT/AST 35 U/L (15-37); SGPT/ALT 29 U/L (13-61); SODIUM 143 mmol/L (136-145); TOT PROT 7.5 g/dl (6.4-8.2)
--- NOTE | 2018-04-06 11:17 | PN ---
[facility] CIWA - CIWA Score Nausea/Vomitin-No Nausea/No Vomiting Muscle Tremors: 2 Anxiety: 2 Agitation: 1-Slight > Activity Paroxysmal Sweats: 2 Orientation: 0-Oriented Tacttile Disturbances: 3-Moderate Itch/Numb/Burn Auditory Disturbances: 0-None Visual Disturbances: 0-None Headache: 0-None Present CIWA-Ar Total Score: 10 BHS Progress Note (SOAP) Subjective: PATIENT C/O LBP AND BURNING SENSATIONS TO FEET, ANXIOUS, AND SWEATING Objective: 04/06/18 11:16 Laboratory Tests 04/06/18 04/06/18 05:30 05:30 WBC 9.4 RBC 4.16 Hgb 10.8 L Hct 34.8 L MCV 83.7 MCH 26.0 MCHC 31.1 L RDW 20.5 H Plt Count 315 MPV 8.9 D Sodium 143 Potassium 3.6 Chloride 102 Carbon Dioxide 30 Anion Gap 12 BUN 6 L Creatinine 0.6 Creat Clearance w eGFR > 60 Random Glucose 89 Calcium 8.7 Total Bilirubin 1.5 H AST 35 ALT 29 Alkaline Phosphatase 133 H Total Protein 7.5 Albumin 3.8 Vital Signs Temperature 97.1 F L 04/06/18 09:36 Pulse Rate 86 04/06/18 09:36 Respiratory Rate 18 04/06/18 09:36 Blood Pressure 143/88 04/06/18 09:36 O2 Sat by Pulse Oximetry (%) SKIN WARM AND MOIST CAR S1S2 RESP CTA BL EXT TRACE PEDAL EDEMA, FULL ROM ALERT AND ORIENTED X 3 04/06/18 11:17 Assessment: 04/06/18 11:17 WITHDRAWAL SX Plan: CONTINUE DETOX ENCOURAGE ORAL FLUIDS CONTINUE TO MONITOR CLINICALLY
--- NOTE | 2018-04-06 13:01 | EKG ---
Test Reason : Blood Pressure : / mmHG Vent. Rate : 092 BPM Atrial Rate : 092 BPM P-R Int : 136 ms QRS Dur : 090 ms QT Int : 396 ms P-R-T Axes : 038 -23 045 degrees QTc Int : 489 ms NORMAL SINUS RHYTHM PROLONGED QT ABNORMAL ECG Confirmed by MD JESSY, JUNIOR ([id number]) on 04/06/2018 1:00:57 PM Referred By: Confirmed By:JUNIOR JIMÉNEZ MD
[2018-04-06 16:40] LABS: URINE APPEARANCE CLEAR; URINE BILIRUBIN NEGATIVE (<2.0 mg/dL); URINE COLOR YELLOW; URINE GLUCOSE (UA) NEGATIVE (NEGATIVE); URINE KETONE NEGATIVE (NEGATIVE); URINE LEUK ESTERASE NEGATIVE (NEGATIVE); URINE NITRITE NEGATIVE (NEGATIVE); URINE PROTEIN NEGATIVE (NEGATIVE); URINE UROBILINOGEN NEGATIVE mg/dL (0.2-1.0)
[2018-04-06] MEDS: THIAMINE HCL 100 MG TABLET (FP) PO SCH (21:48)
[2018-04-06] MEDS: LIDOCAINE PATCH REMOVAL MC SCH (22:25)
[2018-04-07] MEDS: IBUPROFEN 400 MG TABLET (FP) PO PRN (05:38)
[2018-04-07] MEDS: chlordiazePOXIDE HCL 25 MG CAPSULE PO SCH (05:38)
[2018-04-07] MEDS: LIDOCAINE 5% TOPICAL PATCH TP SCH (10:09)
[2018-04-07] MEDS: chlordiazePOXIDE 5 MG CAPSULE PO SCH ×3 (10:09→23:20)
[2018-04-07] MEDS: PRENATAL VITAMINS W/ FOLIC ACID TABLET (FP) PO SCH (10:09)
[2018-04-07] MEDS: amLODIPine BESYLATE 5 MG TABLET (FP) PO SCH (10:09)
--- NOTE | 2018-04-07 12:25 | PN ---
S CIWA - CIWA Score Nausea/Vomitin-Mild Nausea/No Vomiting Muscle Tremors: 2 Anxiety: 3 Agitation: 3 Paroxysmal Sweats: 1-Minimal Palms Moist Orientation: 0-Oriented Tacttile Disturbances: 0-None Auditory Disturbances: 0-None Visual Disturbances: 0-None Headache: 0-None Present CIWA-Ar Total Score: 10 BHS Progress Note (SOAP) Subjective: PATIENT C/O ANXIETY/RESTLESSNESS, MILD SWEATING AND SHAKES. Objective: 04/07/18 12:23 Vital Signs Temperature 98.0 F 04/07/18 10:30 Pulse Rate 87 04/07/18 10:30 Respiratory Rate 18 04/07/18 10:30 Blood Pressure 102/67 04/07/18 10:30 O2 Sat by Pulse Oximetry (%) Laboratory Tests 04/06/18 04/06/18 04/06/18 05:30 05:30 05:30 WBC 9.4 RBC 4.16 Hgb 10.8 L Hct 34.8 L MCV 83.7 MCH 26.0 MCHC 31.1 L RDW 20.5 H Plt Count 315 MPV 8.9 D Sodium 143 Potassium 3.6 Chloride 102 Carbon Dioxide 30 Anion Gap 12 BUN 6 L Creatinine 0.6 Creat Clearance w eGFR > 60 Random Glucose 89 Calcium 8.7 Total Bilirubin 1.5 H AST 35 ALT 29 Alkaline Phosphatase 133 H Total Protein 7.5 Albumin 3.8 Urine Color Urine Appearance Urine pH Ur Specific [place] Urine Protein Urine Glucose (UA) Urine Ketones Urine Blood Urine Nitrite Urine Bilirubin Urine Urobilinogen Ur Leukocyte Esterase RPR Titer Nonreactive 04/06/18 13:35 WBC RBC Hgb Hct MCV MCH MCHC RDW Plt Count MPV Sodium Potassium Chloride Carbon Dioxide Anion Gap BUN Creatinine Creat Clearance w eGFR Random Glucose Calcium Total Bilirubin AST ALT Alkaline Phosphatase Total Protein Albumin Urine Color Yellow Urine Appearance Clear Urine pH 9.0 H D Ur Specific [place] 1.010 Urine Protein Negative Urine Glucose (UA) Negative Urine Ketones Negative Urine Blood Negative Urine Nitrite Negative Urine Bilirubin Negative Urine Urobilinogen Negative Ur Leukocyte Esterase Negative RPR Titer PE: SKIN WARM AND MOIST ALERT AND ORIENTED X 3 AMB AD EZEKIEL EXT MILD TREMORS, FULL ROM Assessment: 04/07/18 12:24 WITHDRAWAL SX Plan: CONTINUE DETOX REGIMEN ENCOURAGE ORAL FLUIDS CONTINUE TO MONITOR CLINICALLY
[2018-04-07] MEDS: LOPERAMIDE HCL 2 MG CAPSULE PO PRN (19:36)
[2018-04-07] MEDS: LIDOCAINE PATCH REMOVAL MC SCH (23:26)
[2018-04-07] MEDS ORDERED: TRIMETHOBENZAMIDE HCL 200MG/2ML INJ IM ONE (23:27)
[2018-04-07] MEDS ORDERED: diphenhydrAMINE HCL 25 MG CAPSULE (FP) PO ONE (23:30)
--- NOTE | 2018-04-07 23:36 | PN ---
[facility] Progress Note Note: Patient complained of generalized itching and vomited x 1 Vital Signs Temperature 97 F L 04/07/18 21:47 Pulse Rate 82 04/07/18 21:47 Respiratory Rate 18 04/07/18 21:47 Blood Pressure 152/82 04/07/18 21:47 O2 Sat by Pulse Oximetry (%) Action: Tigan 200mg intramuscular and Benadryl 25mg capsule oral ordered
[2018-04-07] MEDS: THIAMINE HCL 100 MG TABLET (FP) PO SCH (23:42)
[2018-04-08] MEDS: chlordiazePOXIDE 5 MG CAPSULE PO SCH (05:15)
[2018-04-08] MEDS: IBUPROFEN 400 MG TABLET (FP) PO PRN (05:15)
[2018-04-08] MEDS: amLODIPine BESYLATE 5 MG TABLET (FP) PO SCH (10:09)
[2018-04-08] MEDS: chlordiazePOXIDE HCL 10 MG CAPSULE PO SCH ×3 (10:09→22:47)
[2018-04-08] MEDS: PRENATAL VITAMINS W/ FOLIC ACID TABLET (FP) PO SCH (10:09)
[2018-04-08] MEDS: LIDOCAINE 5% TOPICAL PATCH TP SCH (10:09)
--- NOTE | 2018-04-08 11:37 | PN ---
[facility] Progress Note Note: PATIENT CONTINUES WITH DETOX REGIMEN. C/O DIARRHEA AND RASH ON ARMS/LEGS. Vital Signs Temperature 98.4 F 04/08/18 09:43 Pulse Rate 81 04/08/18 09:43 Respiratory Rate 20 04/08/18 09:43 Blood Pressure 113/69 04/08/18 09:43 O2 Sat by Pulse Oximetry (%) Laboratory Tests 04/06/18 04/06/18 04/06/18 05:30 05:30 05:30 WBC 9.4 RBC 4.16 Hgb 10.8 L Hct 34.8 L MCV 83.7 MCH 26.0 MCHC 31.1 L RDW 20.5 H Plt Count 315 MPV 8.9 D Sodium 143 Potassium 3.6 Chloride 102 Carbon Dioxide 30 Anion Gap 12 BUN 6 L Creatinine 0.6 Creat Clearance w eGFR > 60 Random Glucose 89 Calcium 8.7 Total Bilirubin 1.5 H AST 35 ALT 29 Alkaline Phosphatase 133 H Total Protein 7.5 Albumin 3.8 Urine Color Urine Appearance Urine pH Ur Specific [place] Urine Protein Urine Glucose (UA) Urine Ketones Urine Blood Urine Nitrite Urine Bilirubin Urine Urobilinogen Ur Leukocyte Esterase RPR Titer Nonreactive 04/06/18 13:35 WBC RBC Hgb Hct MCV MCH MCHC RDW Plt Count MPV Sodium Potassium Chloride Carbon Dioxide Anion Gap BUN Creatinine Creat Clearance w eGFR Random Glucose Calcium Total Bilirubin AST ALT Alkaline Phosphatase Total Protein Albumin Urine Color Yellow Urine Appearance Clear Urine pH 9.0 H D Ur Specific [place] 1.010 Urine Protein Negative Urine Glucose (UA) Negative Urine Ketones Negative Urine Blood Negative Urine Nitrite Negative Urine Bilirubin Negative Urine Urobilinogen Negative Ur Leukocyte Esterase Negative RPR Titer SKIN: WARM AND DRY. + MILD RASH ON INNER THIGHS. CAR S1S2 RESP CTA BL EXT + FROM, NO TREMORS ALERT AND ORIENTED X 3 A/P WITHDRAWAL SX CONTINUE ORAL FLUIDS CONTINUE TO MONITOR CLINICALLY IMMODIUM PRN FOR DIARRHEA START HYDROCORTISONE CREAM FOR RASH
[2018-04-08] MEDS ORDERED: HYDROCORTISONE 0.5% TOPICAL CREAM 30 GM TUBE TP SCH (22:00)
[2018-04-08] MEDS: THIAMINE HCL 100 MG TABLET (FP) PO SCH (22:22)
[2018-04-08] MEDS: LOPERAMIDE HCL 2 MG CAPSULE PO PRN (22:48)
[2018-04-08] MEDS: LIDOCAINE PATCH REMOVAL MC SCH (23:00)
[2018-04-09 06:12] VITALS: BP 135/88; PULSE 90; TEMP 97.9
[2018-04-09] MEDS: chlordiazePOXIDE HCL 10 MG CAPSULE PO SCH (06:58)
--- NOTE | 2018-04-09 11:42 | DS ---
[facility] Detox Discharge Summary Admission Date: 04/05/18 Discharge Date: 04/09/18 - History Present History: Alcohol Dependence - Physical Exam Results Vital Signs: Vital Signs Temperature 97.9 F 04/09/18 06:12 Pulse Rate 90 04/09/18 06:12 Respiratory Rate 18 04/09/18 06:30 Blood Pressure 135/88 04/09/18 06:12 O2 Sat by Pulse Oximetry (%) Pertinent Admission Physical Exam Findings: PATIENT COMPLETED DETOX WITHOUT ADVERSE EVENT. PATIENT MEDICALLY STABLE. ALERT AND ORIENTED X 3, SKIN WARM AND DRY, AMB AD EZEKIEL WITH CANE. DENIES SI/HI. PATIENT ENCOURAGED TO FOLLOW UP WITH PCP WITHIN ONE WEEK OF D/C, TO ATTEND GROUP MEETINGS TO PREVENT RELAPSE AND SEEK MEDICAL ATTENTION IF WITHDRAWAL SX OCCUR. PATIENT STATES HE WILL FOLLOW UP WITH [facility] FOR ONGOING REHAB TREATMENT INDEPENDENTLY. - Treatment Hospital Course: Detox Protocol Followed, Detoxed Safely, Responded well, Discharged Condition Good - Medication Discharge Medications: Ambulatory Orders Amlodipine Besylate [Norvasc -] 5 mg PO DAILY #30 tablet 04/08/18 - Diagnosis (1) Withdrawal syndrome Status: Resolved - AMA Did Patient Leave Against Medical Advice: No
== END 2018-04-09 08:52 | disposition home or self-care (01) | DRG 775 ==
LOC: YASAS 08:14 → Y3N 09:29
PROC: HZ2ZZZZ Detoxification Services for Substance Abuse Treatment (ICD-10-PCS; principal; 2018-04-05)
DX: F10.230 Alcohol dependence with withdrawal, uncomplicated (principal); G47.00 Insomnia, unspecified; E86.0 Dehydration; I10 Essential (primary) hypertension; M54.5 Low back pain; G40.509 Epileptic seizures related to external causes, not intractable, without status epilepticus; C45.9 Mesothelioma, unspecified; Z63.4 Disappearance and death of family member; Z59.0 Homelessness
CPT/HCPCS: 36415; 80053; 81003; 85027; 86593; 93005; 93010; J0735

== ENCOUNTER 2018-04-09 18:28 | Emergency (ER) | payer OTHER ==
[2018-04-09 18:38] VITALS: BP 132/84; PULSE 84; TEMP 98.2; BMI 34.4
--- NOTE | 2018-04-09 19:36 | PDOC ---
History of Present Illness - General Chief Complaint: Alcohol intoxication Stated Complaint: ALCOHOL INTOXICATION - History of Present Illness Initial Comments: The patient is a 63M w/ a history of EtOH use who presents for evaluation of EtOH intoxication. The patient endorses chronic EtOH use w/ recent discharge from [facility]. The patient denies fall or injury tonight. The patient denies recent fevers/chills, GARCIA, blurry vision, chest pain, SOB, abdominal pain, N/V/C/ D, or changes in sensation. The patient states that he would like to pursue help to detox from EtOH. 04/09/18 19:34 Past History - Past Medical History Allergies/Adverse Reactions: Allergies Allergy/AdvReac Type Severity Reaction Status Date / Time Fish Containing Products Allergy Mild Swelling Verified 04/09/18 18:36 No Known Drug Allergies Allergy Verified 04/09/18 18:36 Home Medications: Ambulatory Orders Amlodipine Besylate [Norvasc -] 5 mg PO DAILY #30 tablet 04/08/18 Anemia: No Asthma: No Cancer: Yes (mesothelioma) Cardiac Disorders: No CVA: No COPD: No CHF: No DVT: No Dementia: No Diabetes: No GI Disorders: No Disorders: No HTN: Yes (non compliance) Hypercholesterolemia: No Kidney Stones: No Liver Disease: No Psychiatric Problems: Yes (alcoholism) Seizures: No Thyroid Disease: No - Surgical History Abdominal Surgery: No Appendectomy: No Cardiac Surgery: No Cholecystectomy: No Lung Surgery: No Neurologic Surgery: No Orthopedic Surgery: No - Family Disease History Family Disease History: CA: Mother - Reproductive History Testicular Surgery: No - Immunization History TDAP Vaccination: Yes Immunization Up to Date: Yes - Suicide/Smoking/Psychosocial Hx Smoking Status: No Smoking History: Unknown if ever smoked Have you smoked in the past 12 months: No Number of Cigarettes Smoked Daily: 4 If you are a former smoker, when did you quit?: 0 Cigars Per Day: 0 'Breaking Loose' booklet given: 09/22/17 Hx Alcohol Use: Yes Drug/Substance Use Hx: No Substance Use Type: Alcohol Hx Substance Use Treatment: Yes ([facility] 02/08/18to 02/12/18) Review of Systems - Review of Systems Able to Perform ROS?: Yes Comments:: GENERAL/CONSTITUTIONAL: No fever or chills. No weakness HEAD, EYES, EARS, NOSE AND THROAT: No change in vision. No ear pain or discharge. No sore throat CARDIOVASCULAR: No chest pain or shortness of breath RESPIRATORY: No cough, wheezing, or hemoptysis GASTROINTESTINAL: No nausea, vomiting, diarrhea or constipation GENITOURINARY: No dysuria, frequency, or change in urination MUSCULOSKELETAL: +chronic back pain NEUROLOGIC: No vertigo, loss of consciousness, or change in strength/sensation ENDOCRINE: No increased thirst. No abnormal weight change HEMATOLOGIC/LYMPHATIC: No anemia, easy bleeding, or history of blood clots ALLERGIC/IMMUNOLOGIC: No hives or skin allergy 04/09/18 19:35 *Physical Exam - Vital Signs Last Vital Signs Temp Pulse Resp BP Pulse Ox 98.2 F 84 18 132/84 95 04/09/18 18:36 04/09/18 18:36 04/09/18 18:36 04/09/18 18:36 04/09/18 18:36 - Physical Exam Comments: GENERAL: Awake, oriented to person and place, slurring speech, in no acute distress HEAD: No signs of trauma, normocephalic, atraumatic EYES: PERRL, EOMI, sclera anicteric, conjunctiva clear ENT: Hearing grossly normal, nares patent, oropharynx clear without exudates. Moist mucosa LUNGS: No distress, speaks full sentences, clear to auscultation bilaterally HEART:Regular rate and rhythm, normal S1 and S2, no murmurs appreciated, peripheral pulses normal and equal bilaterally ABDOMEN: Soft, nontender, normoactive bowel sounds. No guarding, no rebound NEUROLOGICAL: Cranial nerves II through XII grossly intact. Normal speech, no focal sensorimotor deficits SKIN: Warm, Dry, well healing wound on parietal portion of head 04/09/18 19:35 Medical Decision Making - Medical Decision Making The patient is a 63M who presents for evaluation of EtOH intoxication 04/09/18 19:35
--- NOTE | 2018-04-09 20:28 | PDOC ---
Attending Attestation - Resident Resident Name: Sigifredo Davis - ED Attending Attestation I have performed the following: I have examined & evaluated the patient, The case was reviewed & discussed with the resident, I agree w/resident's findings & plan, Exceptions are as noted - Medical Decision Making 04/09/18 20:26 I, Dr. Skye Rashid, DO, attest that this document has been prepared under my direction and personally reviewed by me in its entirety. I further attest, that it accurately reflects all work, treatment, procedures and medical decision -making performed by me. 04/09/18 20:26 63yo male with hx of alcohol abuse [facility] for eval of homelessness -pt denies falls pt speaking in full sentences -no new external signs of trauma denies head injury pt awake, alert, speaking clearly asking to eat will feed and monitor 04/09/18 23:51 pt speaking in full sentences pt walking with a steady gait pt recently d/c from detox and has not drank in 6 days <Skye Rashid - Last Filed: 04/09/18 23:51> - HPI HPI: 04/09/18 21:07 The patient is a 63 year old male,well known to the ED, with a significant PMH of etoh abuse who presents to the emergency department via EMS for homelessness since earlier today. The patient denies any fall or head injury. He is speaking in full sentences. He denies any other symptoms or complaints. He denies any fever, chills, nausea, vomit, diarrhea and constipation or urinary symptoms. He denies any chest pain, shortness of breath, headache and dizziness. - Physicial Exam PE: 04/09/18 21:08 GENERAL: Awake, alert, and fully oriented, in no acute distress. Disheveled, unkempt . Speaking in full sentences. HEAD: No signs of trauma EYES: PERRLA, EOMI, sclera anicteric, conjunctiva clear ENT: Auricles normal inspection, hearing grossly normal, nares patent, oropharynx clear without exudates. Moist mucosa NECK: Normal ROM, supple, no lymphadenopathy, JVD, or masses LUNGS: Breath sounds equal, clear to auscultation bilaterally. No wheezes, and no crackles HEART: Regular rate and rhythm, normal S1 and S2, no murmurs, rubs or gallops ABDOMEN: Soft, nontender, normoactive bowel sounds. No guarding, no rebound. No masses EXTREMITIES: Normal range of motion, no edema. No clubbing or cyanosis. No cords, erythema, or tenderness NEUROLOGICAL: Cranial nerves II through XII grossly intact. Normal speech, normal gait SKIN: Warm, Dry, normal turgor, no rashes or lesions noted. Documentation prepared by Tyshawn Bailey, acting as medical office representative for Skye Rashid MD. <Tyshawn Bailey - Last Filed: 04/09/18 23:55> *DC/Admit/Observation/Transfer - Discharge Dispostion Decision to Admit order: No <Skye Rashid - Last Filed: 04/09/18 23:51> <Tyshawn Bailey - Last Filed: 04/09/18 23:55> Diagnosis at time of Disposition: Homeless - Discharge Dispostion Disposition: HOME Condition at time of disposition: Stable - Referrals Referrals: Toni Iyer MD [Staff Physician] - - Patient Instructions Additional Instructions: Please do not drink alcohol. Please go to the assisted.
== END 2018-04-10 00:06 | disposition left against medical advice (07) ==
LOC: JER 18:28
DX: F10.120 Alcohol abuse with intoxication, uncomplicated (principal); I10 Essential (primary) hypertension; Z59.0 Homelessness; M54.9 Dorsalgia, unspecified; G89.29 Other chronic pain
CPT/HCPCS: 99281-25

== ENCOUNTER 2018-04-11 17:14 | Emergency (ER) | payer OTHER ==
[2018-04-11 17:28] VITALS: BP 123/80; PULSE 85; TEMP 97.8; BMI 33.0
--- NOTE | 2018-04-11 18:19 | PDOC ---
History of Present Illness - General Chief Complaint: Back Pain Stated Complaint: BACK PAIN/INTOXICATED - History of Present Illness Initial Comments: The patient is a 63M w/ a history of EtOH abuse who presents by EMS for evaluation of chronic lower back pain. The patient denies any recent change in quality to his pain. He denies any neurosensory deficits. He endorses pain with ambulation, but it is at his base line He reports that he has been sober since leaving [facility] earlier this month; however, he was seen here 2d ago for EtOH intoxication He denies recent fevers/chills, GARCIA, changes in vision, chest pain, shortness of breath, or changes in sensation 04/11/18 18:02 Past History - Past Medical History Allergies/Adverse Reactions: Allergies Allergy/AdvReac Type Severity Reaction Status Date / Time Fish Containing Products Allergy Mild Swelling Verified 04/11/18 17:28 No Known Drug Allergies Allergy Verified 04/11/18 17:28 Home Medications: Ambulatory Orders NK [No Known Home Medication] 04/11/18 Anemia: No Asthma: No Cancer: Yes (mesothelioma) Cardiac Disorders: No CVA: No COPD: No CHF: No DVT: No Dementia: No Diabetes: No GI Disorders: No Disorders: No HTN: Yes (non compliance) Hypercholesterolemia: No Kidney Stones: No Liver Disease: No Psychiatric Problems: Yes (alcoholism) Seizures: No Thyroid Disease: No - Surgical History Abdominal Surgery: No Appendectomy: No Cardiac Surgery: No Cholecystectomy: No Lung Surgery: No Neurologic Surgery: No Orthopedic Surgery: No - Family Disease History Family Disease History: CA: Mother - Reproductive History Testicular Surgery: No - Immunization History TDAP Vaccination: Yes Immunization Up to Date: Yes - Suicide/Smoking/Psychosocial Hx Smoking Status: No Smoking History: Never smoked Have you smoked in the past 12 months: No Number of Cigarettes Smoked Daily: 4 If you are a former smoker, when did you quit?: 0 Cigars Per Day: 0 Information on smoking cessation initiated: No 'Breaking Loose' booklet given: 09/22/17 Hx Alcohol Use: No Drug/Substance Use Hx: Yes Substance Use Type: Alcohol Hx Substance Use Treatment: Yes ([facility] 02/08/18to 02/12/18) Review of Systems - Review of Systems Able to Perform ROS?: Yes Comments:: GENERAL/CONSTITUTIONAL: No fever or chills. No weakness HEAD, EYES, EARS, NOSE AND THROAT: No change in vision. No ear pain or discharge. No sore throat CARDIOVASCULAR: No chest pain or shortness of breath RESPIRATORY: No cough, wheezing, or hemoptysis GASTROINTESTINAL: No nausea, vomiting, diarrhea or constipation GENITOURINARY: No dysuria, frequency, or change in urination MUSCULOSKELETAL: +chronic back pain SKIN: No rash NEUROLOGIC: No headache, vertigo, loss of consciousness, or change in strength/ sensation ENDOCRINE: No increased thirst. No abnormal weight change HEMATOLOGIC/LYMPHATIC: No anemia, easy bleeding, or history of blood clots ALLERGIC/IMMUNOLOGIC: No hives or skin allergy 04/11/18 18:19 Is the patient limited Yemeni proficient: No *Physical Exam - Vital Signs Last Vital Signs Temp Pulse Resp BP Pulse Ox 97.8 F 85 18 123/80 97 04/11/18 17:25 04/11/18 17:25 04/11/18 17:25 04/11/18 17:25 04/11/18 17:25 - Physical Exam Comments: GENERAL: Awake, alert, in no acute distress HEAD: No signs of trauma, normocephalic, atraumatic EYES: PERRL, EOMI, sclera anicteric, conjunctiva clear ENT: Hearing grossly normal, nares patent, oropharynx clear without exudates. Moist mucosa LUNGS: No distress, speaks full sentences, clear to auscultation bilaterally HEART:Regular rate and rhythm, normal S1 and S2, no murmurs appreciated, peripheral pulses normal and equal bilaterally NEUROLOGICAL: Cranial nerves II through XII grossly intact. Normal speech, ambulating with cane, no focal sensorimotor deficits SKIN: Warm, Dry, normal turgor, healing wound on parietal portion of scalp 04/11/18 18:21 Medical Decision Making - Medical Decision Making The patient is a 63M w/ a history of chronic back pain who presents for evaluation for back pain No change in patient's back pain from baseline per patient No focal neurologic deficits Plan to observe in ED and re-evaluate Patient ambulating independently in the ED. Speech appropriate Plan for D/C w/ PCP f/u. Patient has pain management referral Patient in agreement and verbalizes understanding Dispo: home 04/11/18 18:22 *DC/Admit/Observation/Transfer Diagnosis at time of Disposition: Chronic back pain Qualifiers: Back pain location: low back pain Back pain laterality: bilateral Sciatica presence: without sciatica Qualified Code(s): M54.5 - Low back pain - Discharge Dispostion Disposition: HOME Condition at time of disposition: Stable Decision to Admit order: No - Referrals Referrals: [facility] [place] [Provider Group] - Patient Instructions Printed Discharge Instructions: DI for Alcohol Abuse - Post Discharge Activity
[2018-04-11] MEDS ORDERED: LIDOCAINE 5% TOPICAL PATCH TP ONE (18:44)
--- NOTE | 2018-04-11 18:46 | PDOC ---
Attending Attestation - Resident Resident Name: Sigifredo Davis - ED Attending Attestation I have performed the following: I have examined & evaluated the patient, The case was reviewed & discussed with the resident, I agree w/resident's findings & plan, Exceptions are as noted
[2018-04-11] MEDS ORDERED: LIDOCAINE 5% TOPICAL PATCH ONE (21:07)
[2018-04-11] MEDS ORDERED: LIDOCAINE PATCH REMOVAL MC SCH (22:00)
== END 2018-04-12 06:49 | disposition home or self-care (01) ==
LOC: JER 17:14
DX: M54.5 Low back pain (principal); G89.29 Other chronic pain; I10 Essential (primary) hypertension; C45.9 Mesothelioma, unspecified; Z59.0 Homelessness
CPT/HCPCS: 99283-25

== ENCOUNTER 2018-04-12 11:43 | Emergency (ER) | payer OTHER ==
--- NOTE | 2018-04-12 12:34 | PDOC ---
History of Present Illness - General Chief Complaint: Back Pain Stated Complaint: BACK PAIN Time Seen by Provider: 04/12/18 11:54 History Source: Patient Exam Limitations: No Limitations - History of Present Illness Initial Comments: 04/12/18 12:21 well known to this ER, BIBA for intoxication found on sidewalk, and brought in by EMS for evaluation. Has history of Intacs and chronic back pain. Had been admitted to to [facility] for alcohol detox and discharged approximately one week ago. Patient has been drinking since. Patient denies pain or injury. Was just discharged from this emergency department at 7 AM today for alcohol intoxication. Return to ER by EMS approximately 3 hours later. 04/12/18 12:48 Timing/Duration: unsure Severity: mild Associated Symptoms: reports: denies symptoms. denies: fever/chills, headaches , malaise Past History - Travel Traveled outside of the country in the last 30 days: No Close contact w/someone who was outside of country & ill: No - Past Medical History Allergies/Adverse Reactions: Allergies Allergy/AdvReac Type Severity Reaction Status Date / Time Fish Containing Products Allergy Mild Swelling Verified 04/11/18 17:28 No Known Drug Allergies Allergy Verified 04/11/18 17:28 Home Medications: Ambulatory Orders NK [No Known Home Medication] 04/11/18 Anemia: No Asthma: No Cancer: Yes (mesothelioma) Cardiac Disorders: No CVA: No COPD: No CHF: No DVT: No Dementia: No Diabetes: No GI Disorders: No Disorders: No HTN: Yes (non compliance) Hypercholesterolemia: No Kidney Stones: No Liver Disease: No Psychiatric Problems: Yes (alcoholism) Seizures: No Thyroid Disease: No - Surgical History Abdominal Surgery: No Appendectomy: No Cardiac Surgery: No Cholecystectomy: No Lung Surgery: No Neurologic Surgery: No Orthopedic Surgery: No - Family Disease History Family Disease History: CA: Mother - Reproductive History Testicular Surgery: No - Immunization History TDAP Vaccination: Yes Immunization Up to Date: Yes - Suicide/Smoking/Psychosocial Hx Smoking Status: No Smoking History: Never smoked Have you smoked in the past 12 months: No Number of Cigarettes Smoked Daily: 4 If you are a former smoker, when did you quit?: 0 Cigars Per Day: 0 'Breaking Loose' booklet given: 09/22/17 Hx Alcohol Use: No Drug/Substance Use Hx: Yes Substance Use Type: Alcohol Hx Substance Use Treatment: Yes ([facility] 02/08/18to 02/12/18) Review of Systems - Review of Systems Able to Perform ROS?: Yes Is the patient limited Syriac proficient: Yes Constitutional: Yes: Symptoms Reported, See HPI, Malaise. No: Fever HEENTM: Yes: See HPI. No: Symptoms Reported Respiratory: Yes: See HPI. No: Symptoms reported, Cough ABD/GI: Yes: See HPI. No: Symptoms Reported, Vomiting : Yes: Other (patient intoxicated and incontinent of urine) Musculoskeletal: Yes: Symptoms Reported, See HPI, Back Pain (chronic pain / lumbar spine. ) Neurological: Yes: Symptoms reported, See HPI, Pre-Existing Deficit, Ataxia ( due to alcohol) All Other Systems: Reviewed and Negative *Physical Exam - Physical Exam General Appearance: Yes: Nourished, Appropriately Dressed, Apparent Distress, Mild Distress, Alcohol on Breath, Intoxicated HEENT: positive: DOUGLAS, Normal ENT Inspection, TMs Normal. negative: Rhinorrhea Neck: positive: Supple. negative: Tender, Lymphadenopathy (R), Lymphadenopathy (L) Respiratory/Chest: positive: Lungs Clear, Normal Breath Sounds. negative: Chest Tender, Respiratory Distress Cardiovascular: positive: Regular Rate Gastrointestinal/Abdominal: positive: Soft, Distended, Other (obese ). negative : Tender, Guarding Musculoskeletal: positive: Normal Inspection Extremity: positive: Normal Capillary Refill, Other. negative: Tender (no reproduced tenderness or deformities palpated along any extremity), Swelling Integumentary: positive: Dry, Warm, Pale, Swelling, Ecchymosis Neurologic: positive: Alert, Normal Mood/Affect (patient mildly belligerent, however able to answer questions appropriately and oriented to person and place , not time. is his baseline), Normal Response. negative: Motor Strength 5/5 ED Treatment Course - LABORATORY CBC & Chemistry Diagram: 04/12/18 14:00 Medical Decision Making - Medical Decision Making 04/12/18 12:36 Patient climbed out end of stretcher and fell. Is currently intoxicated but fall was unwitnessed. Patient has no evidence of bleeding, bruising, or deformities. Is able to stand but is uncoordinated unsteady secondary to his level. As patient is intoxicated and uncertain as to head injury, fall protocol is initiated, we will obtain basic labs and CAT scan of head. 04/12/18 12:51 04/12/18 14:[address] scan reported by Dr[address] Uribe who notes some cerebellar atrophy however no acute fracture or bleed. Etiology recommended MRI as an outpatient to follow cerebellar changes, however consistent with chronic alcoholism. registered nurse hh case manager here investigating potential placement for alcohol rehab. 04/12/18 15:00 04/12/18 16:03 Patient rested, ate full lunch, and states feels well and ready for discharge. Able to ambulate with minimal unsteadiness and has planned to [facility] . Given information and encouragement to follow-up with [facility] and numbers provided with discharge paperwork. He should admit has no desire to stop drinking *DC/Admit/Observation/Transfer Diagnosis at time of Disposition: Intoxication - Discharge Dispostion Disposition: HOME Condition at time of disposition: Stable Decision to Admit order: No - Referrals - Patient Instructions Printed Discharge Instructions: DI for Alcohol Abuse Additional Instructions: Stop Drinking Call and followup [facility] [address] [facility]- [phone] Alcohol Detox, Outpatient - - Post Discharge Activity
[2018-04-12 12:55] VITALS: BP 158/95; PULSE 90; TEMP 98; BMI 26.5
[2018-04-12 14:46] LABS: HEMATOCRIT 32.7 % (35.4-49); HEMOGLOBIN 10.1 GM/dL (11.7-16.9); MCH 25.7 pg (25.7-33.7); MEAN CELL VOLUME 82.8 fl (80-96); MEAN PLT VOLUME 8.3 fl (7.5-11.1); PLATELET COUNT 271 K/MM3 (134-434); RBC 3.95 M/mm3 (4.00-5.60); RDW 21.2 % (11.9-15.9); WHITE BLOOD COUNT 6.3 K/mm3 (4.0-10.0)
[2018-04-12 14:58] LABS: INR 1.08 (0.83-1.09); PROTHROMBIN TIME (PATIENT) 12.8 SEC (9.7-13.0)
== END 2018-04-12 16:52 | disposition home or self-care (01) ==
LOC: JER 11:43
DX: F10.220 Alcohol dependence with intoxication, uncomplicated (principal); Y90.9 Presence of alcohol in blood, level not specified; I10 Essential (primary) hypertension; C45.9 Mesothelioma, unspecified; M54.5 Low back pain; G89.29 Other chronic pain; Z59.0 Homelessness; W18.30XA Fall on same level, unspecified, initial encounter; Y93.89 Activity, other specified; Y92.480 Sidewalk as the place of occurrence of the external cause; Y99.9 Unspecified external cause status
CPT/HCPCS: 36415; 70450-TC; 85027; 85610; 99281-25

== ENCOUNTER 2018-04-15 11:35 | Emergency (ER) | payer OTHER ==
--- NOTE | 2018-04-15 11:46 | PDOC ---
History of Present Illness - General Stated Complaint: Alcohol intoxication Time Seen by Provider: 04/15/18 11:44 - History of Present Illness Initial Comments: 63yo M with PMH of chronic back pain, mesothelioma, HTN, ETOH abuse presenting with back pain. Patient denies saddle anesthesia, shooting pain down his legs, or incontinence. He asked multiple times about lunch. Patient says he has not drank alcohol in two days. 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 Patient says he does not want to go back to [facility], but will go to [facility] because it is beautiful. No fever, chills, chest pain, or shortness of breath. Past History - Past Medical History Allergies/Adverse Reactions: Allergies Allergy/AdvReac Type Severity Reaction Status Date / Time Fish Containing Products Allergy Mild Swelling Verified 04/11/18 17:28 No Known Drug Allergies Allergy Verified 04/11/18 17:28 Home Medications: Ambulatory Orders NK [No Known Home Medication] 04/11/18 Anemia: No Asthma: No Cancer: Yes (mesothelioma) Cardiac Disorders: No CVA: No COPD: No CHF: No DVT: No Dementia: No Diabetes: No GI Disorders: No Disorders: No HTN: Yes (non compliance) Hypercholesterolemia: No Kidney Stones: No Liver Disease: No Psychiatric Problems: Yes (alcoholism) Seizures: No Thyroid Disease: No - Surgical History Abdominal Surgery: No Appendectomy: No Cardiac Surgery: No Cholecystectomy: No Lung Surgery: No Neurologic Surgery: No Orthopedic Surgery: No - Family Disease History Family Disease History: CA: Mother - Reproductive History Testicular Surgery: No - Immunization History TDAP Vaccination: Yes Immunization Up to Date: Yes - Suicide/Smoking/Psychosocial Hx Smoking Status: No Smoking History: Never smoked Have you smoked in the past 12 months: No Number of Cigarettes Smoked Daily: 4 If you are a former smoker, when did you quit?: 0 Cigars Per Day: 0 'Breaking Loose' booklet given: 09/22/17 Hx Alcohol Use: No Drug/Substance Use Hx: Yes Substance Use Type: Alcohol Hx Substance Use Treatment: Yes ([facility] 02/08/18to 02/12/18) Review of Systems - Review of Systems Comments:: Constitutional: no fever, no chills HEENT: no throat pain, no dysphagia Cardiovascular: no chest pain, no palpitations Respiratory: no cough, no shortness of breath Gastrointestinal: no abdominal pain, no nausea, no vomiting Genitourinary: no dysuria, no frequency Musculoskeletal: +back pain, no myalgia Neurologic: no headache, no dizziness *Physical Exam - Physical Exam Comments: General: Awake, alert, and fully oriented, in no acute distress Head: No signs of trauma Eyes: EOMI, sclera anicteric ENT: Moist mucus membranes Neck: Normal ROM, supple Lungs: Lungs clear, Normal breath sounds Cardio: Regular rhythm, S1 and S2 present Abdomen: Soft, nontender. No guarding, no rebound, no masses Extremities: Normal range of motion, Distal pulses present Back: Tender to palpation in lumbar area, midline, no step-offs/deformities/ fluctuance; no overlying wound or lesion; negative straight leg test bilaterally SKIN: Warm, Dry, normal turgor Neurologic: Cranial nerves II through XII grossly intact. Normal speech Medical Decision Making - Medical Decision Making 63yo M with PMH of chronic back pain, mesothelioma, HTN, ETOH abuse presenting with back pain. -Spoke with case management/social work who will see patient 04/15/18 12:35 Social work explained that patient can walk in to [facility] and present himself for admission. Patient currently eating sandwich. Anticipate discharge. 04/15/18 12:48 Patient observed ambulating without difficulty. Tolerated po intake. Discharged. *DC/Admit/Observation/Transfer Diagnosis at time of Disposition: Alcohol dependence, Back pain of thoracolumbar region - Discharge Dispostion Disposition: HOME Condition at time of disposition: Stable - Referrals - Patient Instructions Printed Discharge Instructions: DI for Alcohol Abuse Additional Instructions: You came to the ED for back pain and alcohol dependence. Present to [facility] for rehabilitation: [place] [id number] 05/01 Evaluation and Referral Service: or - Post Discharge Activity
[2018-04-15 12:35] VITALS: BP 141/91; PULSE 98; TEMP 97; BMI 35.9
--- NOTE | 2018-04-15 12:43 | PDOC ---
Attending Attestation - Resident Resident Name: Fabiana Munguia - ED Attending Attestation I have performed the following: I have examined & evaluated the patient, The case was reviewed & discussed with the resident, I agree w/resident's findings & plan, Exceptions are as noted - Medical Decision Making 04/15/18 12:38 A portion of this note was documented by scribe services under my direction. I have reviewed the details of the note, within reason, and agree with the documentation with the following case summary and management plan written by me. Patient treated in the ED. Nursing notes are reviewed and incorporated into the medical decision-making. Vital signs reviewed. Vital Signs Temp Pulse Resp BP Pulse Ox 97 F L 98 H 18 141/91 97 04/15/18 11:45 04/15/18 11:45 04/15/18 11:45 04/15/18 11:45 04/15/18 11:45 63-year-old male with history of alcohol abuse presents with mild cold intoxication. The patient is alert and speaking requesting food. He has history of chronic back pain that is unchanged. Patient is requesting alkyl detoxification at [facility]. At this time, patient no other complaints. We' ll allow the patient to sober up a little bit more before discharge. We'll have the patient follow up in detox as an outpatient.. commercial real estate manager consulted. Once sober, the patient can be discharged to outpatient detoxification <Nitish Hernandez - Last Filed: 04/15/18 12:34> - HPI HPI: 04/15/18 13:22 The patient is a 63-year-old male, with a past medical history of HTN, mesothelioma, alcohol abuse, who presents to the ED with back pain today. The patient has history of chronic back pain and is requesting alcohol detox at [facility]. The patient denies chest pain, shortness of breath, headache and dizziness. Denies fever, chills, nausea, vomiting, diarrhea and constipation. Denies dysuria, frequency, urgency and hematuria. Allergies: NKDA, fish containing products. Past Social History: None reported. Past Surgical History: None reported. - Physicial Exam PE: 04/15/18 13:33 GENERAL: Awake, alert, and fully oriented, in no acute distress. Breathing and sitting comfortably. HEAD: No signs of trauma EYES: PERRLA, EOMI, sclera anicteric, conjunctiva clear ENT: Auricles normal inspection, hearing grossly normal, nares patent. Moist mucosa NECK: Normal ROM, supple, JVD, or masses EXTREMITIES: Normal range of motion, no edema. No clubbing or cyanosis. No cords, erythema, or tenderness NEUROLOGICAL: Cranial nerves II through XII grossly intact. Normal speech. SKIN: Warm, Dry, normal turgor, no rashes or lesions noted. <Nina Rae - Last Filed: 04/15/18 13:35> Attestations - Attestations 04/15/18 13:35 Documentation prepared by Nina Rae, acting as medical record librarians teacher for Nitish Hernandez MD. <Nina Rae - Last Filed: 04/15/18 13:35>
== END 2018-04-15 13:55 | disposition home or self-care (01) ==
LOC: JER 11:35
DX: M54.5 Low back pain (principal); G89.29 Other chronic pain; F10.20 Alcohol dependence, uncomplicated; I10 Essential (primary) hypertension; C45.9 Mesothelioma, unspecified; Z59.0 Homelessness
CPT/HCPCS: 99281-25

== ENCOUNTER 2018-04-17 23:18 | Emergency (ER) | payer OTHER ==
[2018-04-17 23:27] VITALS: BP 107/73; PULSE 97; TEMP 98; BMI 34.4
--- NOTE | 2018-04-18 03:45 | PDOC ---
History of Present Illness - General Chief Complaint: Alcohol intoxication Stated Complaint: ALCOHOL INTOXICATION Time Seen by Provider: 04/18/18 03:28 - History of Present Illness Initial Comments: Sunil De Leon is a 63yo man with a history of alcohol abuse, well known to the ED, who was BIBA today for alcohol intoxication. He denies drinking but complains of chronic low back pain and knee pain, currently unchanged from baseline, that have been bothering him. He reports that he was told he needs to have surgery for his back but he does not want surgery. He denies any fall or other injury tonight, denies alcohol use, and denies any new symptoms or complaints other than his chronic pain. Past History - Past Medical History Allergies/Adverse Reactions: Allergies Allergy/AdvReac Type Severity Reaction Status Date / Time Fish Containing Products Allergy Mild Swelling Verified 04/17/18 23:27 No Known Drug Allergies Allergy Verified 04/17/18 23:27 Home Medications: Ambulatory Orders NK [No Known Home Medication] 04/11/18 Anemia: No Asthma: No Cancer: Yes (mesothelioma) Cardiac Disorders: No CVA: No COPD: No CHF: No DVT: No Dementia: No Diabetes: No GI Disorders: No Disorders: No HTN: Yes (non compliance) Hypercholesterolemia: No Kidney Stones: No Liver Disease: No Psychiatric Problems: Yes (alcoholism) Seizures: No Thyroid Disease: No - Surgical History Abdominal Surgery: No Appendectomy: No Cardiac Surgery: No Cholecystectomy: No Lung Surgery: No Neurologic Surgery: No Orthopedic Surgery: No - Family Disease History Family Disease History: CA: Mother - Reproductive History Testicular Surgery: No - Immunization History TDAP Vaccination: Yes Immunization Up to Date: Yes - Suicide/Smoking/Psychosocial Hx Smoking Status: No Smoking History: Never smoked Have you smoked in the past 12 months: No Number of Cigarettes Smoked Daily: 4 If you are a former smoker, when did you quit?: 0 Cigars Per Day: 0 'Breaking Loose' booklet given: 09/22/17 Hx Alcohol Use: Yes Drug/Substance Use Hx: No Substance Use Type: Alcohol Hx Substance Use Treatment: Yes ([facility] 02/08/18to 02/12/18) Review of Systems - Review of Systems Comments:: General: No fevers, no chills, no weight or appetite change, no malaise HEENT: No changes in vision, no changes in hearing, no congestion, no sore throat CV: No chest pain, no palpitations, no LE edema Pulm: No SOB, no cough, no wheezing GI: No nausea or vomiting, no change in bowel habits, no melena : No frequency, no urgency, no dysuria Musc: +Chronic back pain. +Chronic b/l knee pain. No joint swelling, no recent injury Skin: No rash, no lesions, no erythema Endo: No excessive thirst, no heat/cold intolerance Heme: No unusual bruising or bleeding, no swollen glands Neuro: No syncope, no numbness/tingling, no focal weakness Vasc: No claudication Psych: No recent change in mood, no SI or HI *Physical Exam - Vital Signs Last Vital Signs Temp Pulse Resp BP Pulse Ox 98 F 97 H 18 107/73 99 04/17/18 23:20 04/17/18 23:20 04/17/18 23:20 04/17/18 23:20 04/17/18 23:20 - Physical Exam Comments: General: Sleeping, easily wakened. Strong odor of alcohol. HEENT: PERRL, EOMI, MMM, voice normal, normal neck ROM Cards: RRR, no murmur appreciated Pulm: Comfortable on room air Abd: Soft, nontender, nondistended Ext: No LE edema. ROM intact. No injury, swelling, erythema, deformity to b/l knees. R hand diffusely swollen, healing abrasion on dorsal surface of hand, finger ROM intact, no sensory deficits in all nerve distributions Vasc: Extremities WWP. Neuro: Alert, able to follow conversation, CN grossly intact, motor/sensory grossly intact and symmetric. No focal deficits. Psych: Mood appropriate to situation Medical Decision Making - Medical Decision Making Sunil De Leon is a 63yo man well known to the ED who was BIBA today for alcohol intoxication. He denies any alcohol use though smells strongly of alcohol; he complains of chronic back and b/l knee pain. - Reports that back and knee pain is at baseline. No neurological deficits. - Appears intoxicated but easily wakened, able to follow conversation. - No concerns for new injury, alcohol poisoning, fall, or head injury based on history and physical exam. 04/18/18 07:08 - Monitored overnight - Now sober enough to be discharged home safely Discussed with Dr Kumar. Kathie Higgins PGY1 *DC/Admit/Observation/Transfer Diagnosis at time of Disposition: Intoxication - Discharge Dispostion Disposition: HOME Condition at time of disposition: Stable Decision to Admit order: No - Referrals - Patient Instructions Printed Discharge Instructions: DI for Alcohol Abuse Additional Instructions: Discharge Instructions: - You were seen in the ED for alcohol intoxication - You are strongly advised to stop drinking or go to detox/rehab for assistance with your drinking - Please follow up with your regular doctor within the next 2-3 days - Please go directly to the assisted when you leave the ED - Seek medical treatment if you have chest pain with shortness of breath, sweating, nausea/vomiting or if you have any other serious medical emergency. - Post Discharge Activity
== END 2018-04-18 07:35 | disposition home or self-care (01) ==
LOC: JER 23:18
DX: F10.220 Alcohol dependence with intoxication, uncomplicated (principal); I10 Essential (primary) hypertension; C45.9 Mesothelioma, unspecified; M54.5 Low back pain; M25.561 Pain in right knee; M25.562 Pain in left knee; G89.29 Other chronic pain; Z59.0 Homelessness
CPT/HCPCS: 99282-25

== ENCOUNTER 2018-04-18 19:04 | Emergency (ER) | payer OTHER ==
[2018-04-18 20:18] VITALS: BP 127/77; PULSE 78; TEMP 98.6; BMI 43.0
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
[2018-04-18] MEDS ORDERED: METHOCARBAMOL 500 MG TABLET PO ONE (22:37)
[2018-04-18] MEDS ORDERED: KETOROLAC TROMETHAMINE 30 MG/1 ML VIAL IM ONE (22:37)
== END 2018-04-19 01:11 | disposition home or self-care (01) ==
LOC: JER 19:04
PROC: 3E0233Z Introduction of Anti-inflammatory into Muscle, Percutaneous Approach (ICD-10-PCS; principal; 2018-04-18)
DX: F10.220 Alcohol dependence with intoxication, uncomplicated (principal); S69.81XA Other specified injuries of right wrist, hand and finger(s), initial encounter; M79.89 Other specified soft tissue disorders; W51.XXXA Accidental striking against or bumped into by another person, initial encounter; Y93.89 Activity, other specified; Y92.89 Other specified places as the place of occurrence of the external cause; Y99.8 Other external cause status; I10 Essential (primary) hypertension; C45.9 Mesothelioma, unspecified; M54.5 Low back pain; G89.29 Other chronic pain; Z59.0 Homelessness; Y90.9 Presence of alcohol in blood, level not specified
CPT/HCPCS: 73130-TC-RT-FY; 96372; 99282-25

== ENCOUNTER 2018-04-20 11:37 | Emergency (ER) | payer OTHER ==
[2018-04-20 11:52] VITALS: BMI 33.0
--- NOTE | 2018-04-20 12:10 | PDOC ---
History of Present Illness - General Chief Complaint: Alcohol intoxication Stated Complaint: Alcohol intoxication Time Seen by Provider: 04/20/18 11:56 History Source: Patient - History of Present Illness Timing/Duration: other Past History - Past Medical History Allergies/Adverse Reactions: Allergies Allergy/AdvReac Type Severity Reaction Status Date / Time Fish Containing Products Allergy Mild Swelling Verified 04/20/18 11:52 No Known Drug Allergies Allergy Verified 04/20/18 11:52 Home Medications: Ambulatory Orders NK [No Known Home Medication] 04/11/18 Anemia: No Asthma: No Cancer: Yes (mesothelioma) Cardiac Disorders: No CVA: No COPD: No CHF: No DVT: No Dementia: No Diabetes: No GI Disorders: No Disorders: No HTN: Yes (non compliance) Hypercholesterolemia: No Kidney Stones: No Liver Disease: No Psychiatric Problems: Yes (alcoholism) Seizures: No Thyroid Disease: No - Surgical History Abdominal Surgery: No Appendectomy: No Cardiac Surgery: No Cholecystectomy: No Lung Surgery: No Neurologic Surgery: No Orthopedic Surgery: No - Family Disease History Family Disease History: CA: Mother - Reproductive History Testicular Surgery: No - Immunization History TDAP Vaccination: Yes Immunization Up to Date: Yes - Suicide/Smoking/Psychosocial Hx Smoking Status: No Smoking History: Never smoked Have you smoked in the past 12 months: No Number of Cigarettes Smoked Daily: 4 If you are a former smoker, when did you quit?: 0 Cigars Per Day: 0 Information on smoking cessation initiated: No 'Breaking Loose' booklet given: 09/22/17 Hx Alcohol Use: No Drug/Substance Use Hx: No Substance Use Type: Alcohol Hx Substance Use Treatment: Yes ([facility] 02/08/18to 02/12/18) Review of Systems - Review of Systems : No: Dysuria, Flank Pain, Hematuria Musculoskeletal: Yes: Back Pain Neurological: No: Numbness, Tingling, Weakness *Physical Exam - Vital Signs Last Vital Signs Temp Pulse Resp BP Pulse Ox 97.3 F L 75 18 115/73 100 04/20/18 11:41 04/20/18 11:41 04/20/18 11:41 04/20/18 11:41 04/20/18 11:41 - Physical Exam Comments: 04/20/18 12:08 Pt resting comfortably on stretcher General Appearance: Yes: Appropriately Dressed. No: Apparent Distress HEENT: positive: Normal Voice Neck: positive: Supple Respiratory/Chest: negative: Respiratory Distress Gastrointestinal/Abdominal: positive: Soft. negative: Tender Musculoskeletal: negative: CVA Tenderness Integumentary: positive: Dry, Warm Neurologic: positive: Fully Oriented, Alert, Normal Mood/Affect Medical Decision Making - Medical Decision Making 04/20/18 12:05 63-year-old male, history of mesothelioma, hypertension, chronic back pain, multiple fractures, alcohol abuse, undomiciled, with numerous ED visits for various complaints, mostly relating to his alcohol use and chronic back pain, usually is discharged from ER or elopes. Patient states he is here today w/ his usual lower back pain today. No new symptoms. No recent trauma. Last alcohol intake was vodka this a.m. Pt requesting food at this time See exam Acute on chronic LBP No red flags at this time, ambulatory -tylenol/reassess 04/20/18 12:09 04/20/18 14:58 Pt currently sleeping in ED 04/20/18 18:35 Pt seen walking out pt ED. Left without discharge papers. No IV in place *DC/Admit/Observation/Transfer Diagnosis at time of Disposition: Malingering Chronic back pain Qualifiers: Back pain location: low back pain Back pain laterality: unspecified Sciatica presence: without sciatica Qualified Code(s): M54.5 - Low back pain - Discharge Dispostion Disposition: HOME Condition at time of disposition: Improved - Referrals - Patient Instructions Additional Instructions: Take tylenol for pain as needed and follow up with your PMD - Post Discharge Activity
[2018-04-20 17:10] VITALS: BP 135/75; PULSE 88; TEMP 97.5
== END 2018-04-20 18:45 | disposition home or self-care (01) ==
LOC: JER 11:37
DX: F10.220 Alcohol dependence with intoxication, uncomplicated (principal); Z76.5 Malingerer [conscious simulation]; M54.5 Low back pain; I10 Essential (primary) hypertension; C45.9 Mesothelioma, unspecified; Z59.0 Homelessness; Z91.013 Allergy to seafood; G89.29 Other chronic pain
CPT/HCPCS: 99281-25

== ENCOUNTER 2018-04-25 15:45 | Emergency (ER) | payer OTHER ==
--- NOTE | 2018-04-25 16:22 | PDOC ---
History of Present Illness - General History Source: Patient Exam Limitations: Clinical Condition - History of Present Illness Initial Comments: 04/25/18 16:22 Patient is a 63M with history of mesothelioma, hypertension, chronic back pain, multiple fractures, alcohol abuse, undomiciled, with numerous ED visits for various complaints, mostly relating to his alcohol use and chronic back pain, usually is discharged from ER or elopes here today complaining of alcohol intoxication. Patient states that he drank as much vodka as he could today. Denies chest pain, fevers, chills, nausea, vomiting. Denies shortness of breath , leg swelling. Denies abdominal pain and dysuria. Denies SI/HI. <Edilberto Lenz - Last Filed: 04/26/18 01:11> <Amada Alamo - Last Filed: 04/26/18 01:31> - General Chief Complaint: Alcohol intoxication Stated Complaint: ALCOHOL INTOXICATION Time Seen by Provider: 04/25/18 16:10 Past History - Past Medical History Anemia: No Asthma: No Cancer: Yes (mesothelioma) Cardiac Disorders: No CVA: No COPD: No CHF: No DVT: No Dementia: No Diabetes: No GI Disorders: No Disorders: No HTN: Yes (non compliance) Hypercholesterolemia: No Kidney Stones: No Liver Disease: No Psychiatric Problems: Yes (alcoholism) Seizures: No Thyroid Disease: No - Surgical History Abdominal Surgery: No Appendectomy: No Cardiac Surgery: No Cholecystectomy: No Lung Surgery: No Neurologic Surgery: No Orthopedic Surgery: No - Family Disease History Family Disease History: CA: Mother - Reproductive History Testicular Surgery: No - Immunization History TDAP Vaccination: Yes Immunization Up to Date: Yes - Suicide/Smoking/Psychosocial Hx Smoking Status: No Smoking History: Never smoked Have you smoked in the past 12 months: No Number of Cigarettes Smoked Daily: 4 If you are a former smoker, when did you quit?: 0 Cigars Per Day: 0 'Breaking Loose' booklet given: 09/22/17 Hx Alcohol Use: No Drug/Substance Use Hx: No Substance Use Type: Alcohol Hx Substance Use Treatment: Yes ([facility] 02/08/18to 02/12/18) <Edilberto Lenz - Last Filed: 04/26/18 01:11> <Amada Alamo - Last Filed: 04/26/18 01:31> - Past Medical History Allergies/Adverse Reactions: Allergies Allergy/AdvReac Type Severity Reaction Status Date / Time Fish Containing Products Allergy Mild Swelling Verified 04/25/18 16:42 No Known Drug Allergies Allergy Verified 04/25/18 16:42 Home Medications: Ambulatory Orders NK [No Known Home Medication] 04/11/18 Review of Systems - Review of Systems Comments:: 04/25/18 16:27 GENERAL/CONSTITUTIONAL: No fever or chills. No weakness. HEAD, EYES, EARS, NOSE AND THROAT: No change in vision. No sore throat. CARDIOVASCULAR: No chest pain or shortness of breath RESPIRATORY: No cough, wheezing, or hemoptysis. GASTROINTESTINAL: No nausea, vomiting, diarrhea or constipation. GENITOURINARY: No dysuria, frequency, or change in urination. MUSCULOSKELETAL: No joint or muscle swelling or pain. +back pain SKIN: No rash NEUROLOGIC: No headache, vertigo, loss of consciousness, or change in strength/ sensation. ENDOCRINE: No increased thirst. No abnormal weight change ALLERGIC/IMMUNOLOGIC: No hives or skin allergy. <Edilberto Lenz - Last Filed: 04/26/18 01:11> *Physical Exam - Physical Exam Comments: 04/25/18 16:28 GENERAL: Awake, alert, and fully oriented, disheveled, smells of alcohol HEAD: No signs of trauma, normocephalic, atraumatic EYES: PERRLA, EOMI, sclera anicteric, conjunctiva clear ENT: Auricles normal inspection, hearing grossly normal, nares patent, oropharynx clear without exudates. Moist mucosa NECK: Normal ROM, supple, no lymphadenopathy, JVD, or masses LUNGS: No distress, speaks full sentences, clear to auscultation bilaterally HEART: Regular rate and rhythm, normal S1 and S2, no murmurs, rubs or gallops, peripheral pulses normal and equal bilaterally. ABDOMEN: Soft, nontender, normoactive bowel sounds. No guarding, no rebound. No masses EXTREMITIES: Normal inspection, Normal range of motion, no edema. No clubbing or cyanosis. NEUROLOGICAL: Cranial nerves II through XII grossly intact. Slurred speech, no focal sensorimotor deficits SKIN: Warm, Dry, normal turgor, no rashes or lesions noted. <Edilberto Lenz - Last Filed: 04/26/18 01:11> - Vital Signs Last Vital Signs Temp Pulse Resp BP Pulse Ox 98.0 F 88 18 132/78 98 04/25/18 16:00 04/25/18 16:00 04/25/18 16:00 04/25/18 16:00 04/25/18 16:00 <Amada Alamo - Last Filed: 04/26/18 01:31> Medical Decision Making - Medical Decision Making 04/25/18 16:45 Patient is a 63M with history of mesothelioma, hypertension, chronic back pain, multiple fractures, alcohol abuse, undomiciled, with numerous ED visits for various complaints, mostly relating to his alcohol use and chronic back pain, usually is discharged from ER or elopes here today with alcohol intoxication. Vitals normal and stable. No signs of trauma. Patient is alert, able to carry on conversation. 04/26/18 00:07 Reassessed. Arousable. Still intoxicated. 04/26/18 01:[address] Chang. <Edilberto Lenz - Last Filed: 04/26/18 01:11> *DC/Admit/Observation/Transfer - Discharge Dispostion Decision to Admit order: No <Edilberto Lenz - Last Filed: 04/26/18 01:11> <Amada Alamo - Last Filed: 04/26/18 01:31> Diagnosis at time of Disposition: Intoxication - Discharge Dispostion Disposition: HOME Condition at time of disposition: Stable - Patient Instructions Printed Discharge Instructions: DI for Alcohol Abuse Additional Instructions: Please stop drinking, as it is harming your life.
[2018-04-25 16:44] VITALS: BP 132/78; PULSE 88; TEMP 98; BMI 35.5
--- NOTE | 2018-04-25 16:51 | PDOC ---
Attending Attestation - Resident Resident Name: Edilberto Lenz - ED Attending Attestation I have performed the following: I have examined & evaluated the patient, The case was reviewed & discussed with the resident, I agree w/resident's findings & plan - HPI HPI: 04/25/18 16:50 63M with history of mesothelioma, hypertension, chronic back pain, multiple fractures, alcohol abuse, undomiciled, with numerous ED visits for various complaints, presenting with ETOH intoxication, drinking approx 1 pint of vodka today. no s/s trauma. history limited due to intoxication - Physicial Exam PE: 04/25/18 17:36 agree with resident phys exam note. clinically intoxicated, slurring speech, malodorous and disheveled DICKEY x4, no focal neuro deficits. no tremors. RRR CTAB Abdomen obese, nontender - Medical Decision Making 04/25/18 17:36 Alcohol intoxication DDx. alcohol intoxication, alcohol withdrawal. drug intoxication no utox indicated, as pt with clear history of cannibis use and will not traveler changer. pt monitored closely in the ED, sobriety hold. remained comfortable and snoring in stretcher, no acute events, VS remain stable. s/o pending sobriety, DC in AM once sober 04/26/18 01:30
--- NOTE | 2018-04-26 06:47 | PDOC ---
*Physical Exam - Vital Signs Last Vital Signs Temp Pulse Resp BP Pulse Ox 98.0 F 88 18 132/78 98 04/25/18 16:00 04/25/18 16:00 04/25/18 16:00 04/25/18 16:00 04/25/18 16:00 *DC/Admit/Observation/Transfer Diagnosis at time of Disposition: Intoxication - Discharge Dispostion Disposition: HOME Condition at time of disposition: Stable Decision to Admit order: No - Referrals - Patient Instructions Printed Discharge Instructions: DI for Alcohol Abuse Additional Instructions: Please stop drinking, as it is harming your life. - Post Discharge Activity
== END 2018-04-26 06:50 | disposition home or self-care (01) ==
LOC: JER 15:45
DX: F10.220 Alcohol dependence with intoxication, uncomplicated (principal); I10 Essential (primary) hypertension; C45.9 Mesothelioma, unspecified; M54.5 Low back pain; G89.29 Other chronic pain; Z59.0 Homelessness
CPT/HCPCS: 99283-25

== ENCOUNTER 2018-05-01 18:10 | Emergency (ER) | payer OTHER ==
[2018-05-01 19:09] VITALS: BMI 33.0
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
[2018-05-01 22:21] VITALS: BP 89/49; PULSE 91; TEMP 98.3
== END 2018-05-02 06:56 | disposition home or self-care (01) ==
LOC: JER 18:10
DX: F10.230 Alcohol dependence with withdrawal, uncomplicated (principal); Y90.8 Blood alcohol level of 240 mg/100 ml or more; I10 Essential (primary) hypertension; G89.29 Other chronic pain; C45.9 Mesothelioma, unspecified; Z59.0 Homelessness; Z91.013 Allergy to seafood
CPT/HCPCS: 36415; 80307; 99282-25

== ENCOUNTER 2018-05-03 19:26 | Emergency (ER) | payer OTHER ==
--- NOTE | 2018-05-03 19:51 | PDOC ---
Rapid Medical Evaluation Chief Complaint: Alcohol intoxication Time Seen by Provider: 05/03/18 19:37 Medical Evaluation: Allergies Allergy/AdvReac Type Severity Reaction Status Date / Time Fish Containing Products Allergy Mild Swelling Verified 04/25/18 16:42 No Known Drug Allergies Allergy Verified 04/25/18 16:42 05/03/18 19:37 63 year old male BIBA found on a park bench with alcohol intoxication PE: Patient alert ox3 A: alcohol intoxication P: sobriety patient to the ER for further management of care. 05/03/18 20:17 Discharge Disposition - Diagnosis Alcohol intoxication - Referrals - Patient Instructions - Post Discharge Activity
[2018-05-03 20:03] VITALS: BP 118/60; PULSE 93; TEMP 97.7; BMI 43.0
--- NOTE | 2018-05-03 22:45 | PDOC ---
History of Present Illness - General History Source: Patient Exam Limitations: No Limitations - History of Present Illness Travel History: No Initial Comments: 05/03/18 22:44 History of Present Illness: 61-year-old male with PMH of mesothelioma with an extension hx of EtOH abuse with multiple ER visits and admissions due to EtOH abuse is biba for public intoxication. Patient at this time is noted to have AOB. Patient is not slurring his speech at this time but is unstable in gait and is intoxicated. Patient is A&Ox3 to deny f/c,n/v/d, constipation, lightheadedness, dizziness, guerra, blurry vision, visual disturbance, chest pain, sob, neck/back pain, abd pain , urinary symptoms; urgency/frequency/hesitancy, hematuria. Patient denies any sick contacts, travel outside the [place] or contact with any sick individuals who have been outside the [place]. Past Medical History: ETOH abuse, Mesothelioma Family History: Mother with cancer Social History: EtOH abuse Surgical history: Denies Allergies: No known drug allergies ROS: CONSTITUTIONAL: Absent: fever, chills, diaphoresis, generalized weakness, malaise, loss of appetite HEENT: Absent: rhinorrhea, nasal congestion, throat pain, throat swelling, difficulty swallowing, mouth swelling, ear pain, eye pain, visual Changes CARDIOVASCULAR: Absent: chest pain, loss of consciousness, palpitations, irregular heart rate, peripheral edema RESPIRATORY: Absent: cough, shortness of breath, dyspnea with exertion, orthopnea, wheezing, stridor, hemoptysis GASTROINTESTINAL: Absent: abdominal pain, abdominal distension, nausea, vomiting, diarrhea, constipation, melena, hematochezia GENITOURINARY: Absent: dysuria, frequency, urgency, hesitancy, hematuria, flank pain, genital pain MUSCULOSKELETAL: Absent: myalgia, arthralgia, joint swelling SKIN: Absent: rash, itching, pallor HEMATOLOGIC/IMMUNOLOGIC: Absent: easy bleeding, easy bruising, lymphadenopathy, frequent infections ENDOCRINE: Absent: unexplained weight gain, unexplained weight loss, heat intolerance, cold intolerance NEUROLOGIC: Absent: headache, focal weakness or paresthesias, dizziness, unsteady gait, seizure, mental status changes, bladder or bowel incontinence PSYCHIATRIC: Absent:+EtOH abuse, No depression or anxiety.anxiety, depression, suicidal or homicidal ideation, hallucinations. GENERAL: Well developed, well nourished. Awake and alert. No acute distress. HEENT: Normocephalic, atraumatic. PERRLA, EOMI. No conjunctival pallor. Sclera are non- icteric. Moist mucous membranes. Oropharynx is clear. NECK: Supple. Full ROM. No JVD. Carotid pulses 2+ and symmetric, without bruits. No thyromegaly. No lymphadenopathy. CARDIOVASCULAR: Regular rate and rhythm. No murmurs, rubs, or gallops. Distal pulses are 2+ and symmetric. PULMONARY: No evidence of respiratory distress. Lungs clear to auscultation bilaterally. No wheezing, rales or rhonchi. ABDOMINAL: Soft. Non-tender. Non-distended. No rebound or guarding. No organomegaly. Normoactive bowel sounds. MUSCULOSKELETAL Normal range of motion at all joints. No bony deformities or tenderness. No CVA tenderness. EXTREMITIES: No cyanosis. No clubbing. No edema. No calf tenderness. SKIN: Warm and dry. Normal capillary refill. No rashes. No jaundice. NEUROLOGICAL: Alert, awake, appropriate. Cranial nerves 2-12 intact. No deficits to light touch and temperature in face, upper extremities and lower extremities. No motor deficits in the in face, upper extremities and lower extremities. Normoreflexic in the upper and lower extremities. Normal speech. Toes are down- going bilaterally. Gait is normal without ataxia. PSYCHIATRIC: Cooperative. Good eye contact. Appropriate mood and affect. Medical Decision Making Patient reassessment: Patient has been noted to be walking and emergency department without difficulty or ataxic gait. Patient is able to communicate clearly and has straight clear mentation. I will discharge this patient to follow-up with outpatient PCP. Patient does not indicate desire at this time for detox. I discussed the physical exam findings, ancillary test results and final diagnoses with the patient. I answered all of the patient's questions. The patient was satisfied with the care received and felt comfortable with the discharge plan and treatment plan. The patient will call their primary care physician within 24 hours to arrange follow-up and will return to the Emergency Department with any new, persistent or worsening symptoms. Printed Discharge Instructions: DI for Alcohol Abuse Additional Instructions: Please follow-up with the included referral for PCP. Return to emergency room if shortness of breath, wheezing, fever greater than 101, chest pain, or fainting occurs. <Tahir Lassiter - Last Filed: 05/03/18 22:44> <Nuris Smith - Last Filed: 05/04/18 06:13> - General Chief Complaint: Alcohol intoxication Stated Complaint: INTOXICATION Time Seen by Provider: 05/03/18 19:37 Past History - Past Medical History Anemia: No Asthma: No Cancer: Yes (mesothelioma) Cardiac Disorders: No CVA: No COPD: No CHF: No DVT: No Dementia: No Diabetes: No GI Disorders: No Disorders: No HTN: Yes (non compliance) Hypercholesterolemia: No Kidney Stones: No Liver Disease: No Psychiatric Problems: Yes (alcoholism) Seizures: No Thyroid Disease: No - Surgical History Abdominal Surgery: No Appendectomy: No Cardiac Surgery: No Cholecystectomy: No Lung Surgery: No Neurologic Surgery: No Orthopedic Surgery: No - Family Disease History Family Disease History: CA: Mother - Reproductive History Testicular Surgery: No - Immunization History TDAP Vaccination: Yes Immunization Up to Date: Yes - Suicide/Smoking/Psychosocial Hx Smoking Status: No Smoking History: Current some day smoker Have you smoked in the past 12 months: No Number of Cigarettes Smoked Daily: 5 If you are a former smoker, when did you quit?: 0 Cigars Per Day: 0 Information on smoking cessation initiated: No 'Breaking Loose' booklet given: 09/22/17 Hx Alcohol Use: No Drug/Substance Use Hx: No Substance Use Type: Alcohol Hx Substance Use Treatment: Yes ([facility] 02/08/18to 02/12/18) <Tahir Lassiter - Last Filed: 05/03/18 22:44> <Nuris Smith - Last Filed: 05/04/18 06:13> - Past Medical History Allergies/Adverse Reactions: Allergies Allergy/AdvReac Type Severity Reaction Status Date / Time Fish Containing Products Allergy Mild Swelling Verified 05/03/18 20:03 No Known Drug Allergies Allergy Verified 05/03/18 20:03 Home Medications: Ambulatory Orders NK [No Known Home Medication] 04/11/18 Abd/GI Specific PMHX - Complaint Specific PMHX GERD: No Hepatitis: No Pancreatitis: No <Tahir Lassiter - Last Filed: 05/03/18 22:44> *Physical Exam - Vital Signs Last Vital Signs Temp Pulse Resp BP Pulse Ox 97.7 F 93 H 18 118/60 98 05/03/18 19:58 05/03/18 19:58 05/03/18 19:58 05/03/18 19:58 05/03/18 21:19 <Tahir Lassiter - Last Filed: 05/03/18 22:44> - Vital Signs Last Vital Signs Temp Pulse Resp BP Pulse Ox 97.7 F 93 H 18 118/60 98 05/03/18 19:58 05/03/18 19:58 05/03/18 19:58 05/03/18 19:58 05/03/18 21:19 <Nuris Smith - Last Filed: 05/04/18 06:13> *DC/Admit/Observation/Transfer - Discharge Dispostion Decision to Admit order: No <Tahir Lassiter - Last Filed: 05/03/18 22:44> <Nuris Smith - Last Filed: 05/04/18 06:13> Diagnosis at time of Disposition: Alcohol intoxication - Discharge Dispostion Condition at time of disposition: Stable - Referrals Referrals: Ken Bridges MD [Staff Physician] - - Patient Instructions Printed Discharge Instructions: DI for Alcohol Abuse Additional Instructions: Avoid alcohol Rest Increase fluids Return to the ER for chest pain, shortness of breath or any concerns
== END 2018-05-04 07:25 | disposition home or self-care (01) ==
LOC: JER 19:26
DX: F10.220 Alcohol dependence with intoxication, uncomplicated (principal); I10 Essential (primary) hypertension; C45.9 Mesothelioma, unspecified; M54.5 Low back pain; G89.29 Other chronic pain; Z59.0 Homelessness; Z91.14 Patient's other noncompliance with medication regimen; Z91.013 Allergy to seafood
CPT/HCPCS: 99284-25

== ENCOUNTER 2018-05-04 20:12 | Emergency (ER) | payer OTHER ==
[2018-05-04 20:15] VITALS: BP 123/78; PULSE 80; TEMP 98; BMI 38.7
--- NOTE | 2018-05-04 20:18 | PDOC ---
Rapid Medical Evaluation Chief Complaint: Alcohol intoxication Time Seen by Provider: 05/04/18 20:16 Medical Evaluation: Allergies Allergy/AdvReac Type Severity Reaction Status Date / Time Fish Containing Products Allergy Mild Swelling Verified 05/04/18 20:16 No Known Drug Allergies Allergy Verified 05/04/18 20:16 Vital Signs Temp Pulse Resp BP Pulse Ox 98.0 F 80 18 123/78 95 05/04/18 20:14 05/04/18 20:14 05/04/18 20:14 05/04/18 20:14 05/04/18 20:14 05/04/18 20:16 I have performed a brief in person evaluation. The patient presents with a CC of : ETOH HPI: Pt is a 63 YO male who was brought in by EMS with ETOH. PE: Skin: Clear Lungs: Clear Heart: RRR MS: Moves all extremities without difficulty Neuro: Alert Psych: Appropriate affect The patient will proceed to the ED for further evaluation. Discharge Disposition - Diagnosis Alcohol intoxication - Referrals - Patient Instructions - Post Discharge Activity
--- NOTE | 2018-05-05 00:10 | PDOC ---
*Physical Exam - Vital Signs Last Vital Signs Temp Pulse Resp BP Pulse Ox 98.0 F 80 18 123/78 95 05/04/18 20:14 05/04/18 20:14 05/04/18 20:14 05/04/18 20:14 05/04/18 20:14 Medical Decision Making - Medical Decision Making 05/05/18 00:09 Pt seen by the Advanced Practice Provider under my direct supervision Ancillary studies reviewed I agree with plan as outlined by the Advanced Practice Provider APPLE Oliver *DC/Admit/Observation/Transfer Diagnosis at time of Disposition: Alcohol intoxication - Referrals - Patient Instructions - Post Discharge Activity
--- NOTE | 2018-05-05 00:23 | PDOC ---
History of Present Illness - General Chief Complaint: Alcohol intoxication Stated Complaint: Alcohol intoxication/BACK PAIN Time Seen by Provider: 05/04/18 20:16 History Source: Patient Exam Limitations: No Limitations - History of Present Illness Initial Comments: 05/05/18 00:22 Patient is a 61-year-old male with past medical history of mesothelioma and EtOH abuse, well known to our emergency department is brought in by ambulance for intoxication at this time. Patient with alcohol on the breath. Patient's slurring his speech and intoxicated. He has no complaints at this time. Denies chest pain, difficulty breathing, fall, LOC, lightheadedness and dizziness. Past History - Travel Traveled outside of the country in the last 30 days: No Close contact w/someone who was outside of country & ill: No - Past Medical History Allergies/Adverse Reactions: Allergies Allergy/AdvReac Type Severity Reaction Status Date / Time Fish Containing Products Allergy Mild Swelling Verified 05/04/18 20:16 No Known Drug Allergies Allergy Verified 05/04/18 20:16 Home Medications: Ambulatory Orders NK [No Known Home Medication] 04/11/18 Anemia: No Asthma: No Cancer: Yes (mesothelioma) Cardiac Disorders: No CVA: No COPD: No CHF: No DVT: No Dementia: No Diabetes: No GI Disorders: No Disorders: No HTN: Yes (non compliance) Hypercholesterolemia: No Kidney Stones: No Liver Disease: No Psychiatric Problems: Yes (alcoholism) Seizures: No Thyroid Disease: No - Surgical History Abdominal Surgery: No Appendectomy: No Cardiac Surgery: No Cholecystectomy: No Lung Surgery: No Neurologic Surgery: No Orthopedic Surgery: No - Family Disease History Family Disease History: CA: Mother - Reproductive History Testicular Surgery: No - Immunization History TDAP Vaccination: Yes Immunization Up to Date: Yes - Suicide/Smoking/Psychosocial Hx Smoking Status: No Smoking History: Never smoked Have you smoked in the past 12 months: No Number of Cigarettes Smoked Daily: 5 If you are a former smoker, when did you quit?: 0 Cigars Per Day: 0 'Breaking Loose' booklet given: 09/22/17 Hx Alcohol Use: No Drug/Substance Use Hx: No Substance Use Type: Alcohol Hx Substance Use Treatment: Yes ([facility] 02/08/18to 02/12/18) Review of Systems - Review of Systems Able to Perform ROS?: Yes Comments:: 05/05/18 00:22 CONSTITUTIONAL: Present: alcohol on the breath Absent: fever, chills, diaphoresis, generalized weakness, malaise, loss of appetite HEENT: Absent: rhinorrhea, nasal congestion, throat pain, throat swelling, difficulty swallowing, mouth swelling, ear pain, eye pain, visual Changes CARDIOVASCULAR: Absent: chest pain, loss of consciousness, palpitations, irregular heart rate, peripheral edema RESPIRATORY: Absent: cough, shortness of breath, dyspnea with exertion, orthopnea, wheezing, stridor, hemoptysis GASTROINTESTINAL: Absent: abdominal pain, abdominal distension, nausea, vomiting, diarrhea, constipation, melena, hematochezia GENITOURINARY: Absent: dysuria, frequency, urgency, hesitancy, hematuria, flank pain, genital pain MUSCULOSKELETAL: Absent: myalgia, arthralgia, joint swelling SKIN: Absent: rash, itching, pallor HEMATOLOGIC/IMMUNOLOGIC: Absent: easy bleeding, easy bruising, lymphadenopathy, frequent infections ENDOCRINE: Absent: unexplained weight gain, unexplained weight loss, heat intolerance, cold intolerance NEUROLOGIC: Absent: headache, focal weakness or paresthesias, dizziness, unsteady gait, seizure, mental status changes, bladder or bowel incontinence PSYCHIATRIC: Absent: anxiety, depression, suicidal or homicidal ideation, hallucinations. Is the patient limited French proficient: No *Physical Exam - Vital Signs Last Vital Signs Temp Pulse Resp BP Pulse Ox 98.0 F 80 18 123/78 95 05/04/18 20:14 05/04/18 20:14 05/04/18 20:14 05/04/18 20:14 05/04/18 20:14 - Physical Exam Comments: 05/05/18 00:22 GENERAL: Well developed, well nourished. Awake and alert. No acute distress. Alcohol on breath, disheveled. HEENT: Normocephalic, atraumatic. PERRLA, EOMI. No conjunctival pallor. Sclera are non- icteric. Moist mucous membranes. Oropharynx is clear. NECK: Supple. Full ROM. No JVD. Carotid pulses 2+ and symmetric, without bruits. No thyromegaly. No lymphadenopathy. CARDIOVASCULAR: Regular rate and rhythm. No murmurs, rubs, or gallops. Distal pulses are 2+ and symmetric. PULMONARY: No evidence of respiratory distress. Lungs clear to auscultation bilaterally. No wheezing, rales or rhonchi. ABDOMINAL: Soft. Non-tender. Non-distended. No rebound or guarding. No organomegaly. Normoactive bowel sounds. MUSCULOSKELETAL Normal range of motion at all joints. No bony deformities or tenderness. No CVA tenderness. EXTREMITIES: No cyanosis. No clubbing. No edema. No calf tenderness. SKIN: Warm and dry. Normal capillary refill. No rashes. No jaundice. NEUROLOGICAL: Alert, awake, appropriate. Cranial nerves 2-12 intact. No deficits to light touch and temperature in face, upper extremities and lower extremities. No motor deficits in the in face, upper extremities and lower extremities. Normoreflexic in the upper and lower extremities. Normal speech. Toes are down- going bilaterally. Gait is normal without ataxia. PSYCHIATRIC: Cooperative. Good eye contact. Appropriate mood and affect. Medical Decision Making - Medical Decision Making 05/04/18 00:31 Pt is a 63 y/o M who presents for intoxication. Pt has no complaints at this time. Exam is benign. No signs of withdrawal at this time. Will allow pt to metabolize to freedom. 05/05/18 06:06 Pt is awake, AAOX3 and clinically sober. Will DC home at this time. *DC/Admit/Observation/Transfer Diagnosis at time of Disposition: Alcohol intoxication Qualifiers: Complication of substance-induced condition: uncomplicated Qualified Code(s): F10.920 - Alcohol use, unspecified with intoxication, uncomplicated - Discharge Dispostion Disposition: HOME Condition at time of disposition: Stable Decision to Admit order: No - Referrals Referrals: Amara Morris MD [Staff Physician] - - Patient Instructions Printed Discharge Instructions: DI for Alcohol Abuse Additional Instructions: Avoid drinking alcohol Return to the ED for any new or worsening symptoms - Post Discharge Activity
== END 2018-05-05 06:45 | disposition home or self-care (01) ==
LOC: JER 20:12
DX: F10.220 Alcohol dependence with intoxication, uncomplicated (principal); I10 Essential (primary) hypertension; C45.9 Mesothelioma, unspecified; Z59.0 Homelessness
CPT/HCPCS: 99282-25

== ENCOUNTER 2018-05-06 18:03 | Emergency (ER) | payer OTHER ==
[2018-05-06 18:16] VITALS: BP 134/68; PULSE 92; BMI 33.0
--- NOTE | 2018-05-06 18:27 | PDOC ---
History of Present Illness - General Chief Complaint: Back Pain Stated Complaint: BACK PAIN Time Seen by Provider: 05/06/18 18:21 History Source: Patient Exam Limitations: Intoxication Past History - Past Medical History Allergies/Adverse Reactions: Allergies Allergy/AdvReac Type Severity Reaction Status Date / Time Fish Containing Products Allergy Mild Swelling Verified 05/06/18 18:12 No Known Drug Allergies Allergy Verified 05/06/18 18:12 Home Medications: Ambulatory Orders NK [No Known Home Medication] 04/11/18 Anemia: No Asthma: No Cancer: Yes (mesothelioma) Cardiac Disorders: No CVA: No COPD: No CHF: No DVT: No Dementia: No Diabetes: No GI Disorders: No Disorders: No HTN: Yes (non compliance) Hypercholesterolemia: No Kidney Stones: No Liver Disease: No Psychiatric Problems: Yes (alcoholism) Seizures: No Thyroid Disease: No - Surgical History Abdominal Surgery: No Appendectomy: No Cardiac Surgery: No Cholecystectomy: No Lung Surgery: No Neurologic Surgery: No Orthopedic Surgery: No - Family Disease History Family Disease History: CA: Mother - Reproductive History Testicular Surgery: No - Immunization History TDAP Vaccination: Yes Immunization Up to Date: Yes - Suicide/Smoking/Psychosocial Hx Smoking Status: No Smoking History: Never smoked Have you smoked in the past 12 months: No Number of Cigarettes Smoked Daily: 5 If you are a former smoker, when did you quit?: 0 Cigars Per Day: 0 Information on smoking cessation initiated: No 'Breaking Loose' booklet given: 09/22/17 Hx Alcohol Use: No Drug/Substance Use Hx: No Substance Use Type: Alcohol Hx Substance Use Treatment: Yes ([facility] 02/08/18to 02/12/18) *Physical Exam - Vital Signs Last Vital Signs Temp Pulse Resp BP Pulse Ox 92 H 18 134/68 97 05/06/18 18:13 05/06/18 18:13 05/06/18 18:13 05/06/18 18:13
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
--- NOTE | 2018-05-06 19:12 | PDOC ---
Attending Attestation - HPI HPI: 05/06/18 19:18 The patient is a 63 year old male with a past medical history of alcohol abuse, COPD, chronic back pain, mesothelioma, and HTN brought in today by EMS for evaluation of back pain. The patient reports not drinking in a liquor store when his back pain began. The store pharmacist in charge owner called EMS and the patient was found on the floor complaining of his back pain. The patient denies any other symptoms. After repeated questioning the patient does confirm drinking tonight. Patient denies headache, lightheadedness. Denies fever, chills. Denies chest pain, shortness of breath. Denies nausea, vomiting, diarrhea, abdominal pain. Denies lower extremity edema. Denies urinary symptoms. Denies neurologic symptoms. Allergies: NKA Surgical history: none reported Social history: daily alcohol use. Denies tobacco and drug use PCP: none reported <Smith Douglas - Last Filed: 05/06/18 19:18> - Resident Resident Name: Anabell Dover - ED Attending Attestation I have performed the following: I have examined & evaluated the patient, The case was reviewed & discussed with the resident, I agree w/resident's findings & plan, Exceptions are as noted - Physicial Exam PE: GENERAL: Awake, alert, and oriented to person and place. +AOB. Poor hygiene. HEAD: No signs of trauma EYES: PERRLA, EOMI, sclera anicteric, conjunctiva clear ENT: Auricles normal inspection, hearing grossly normal, nares patent, oropharynx clear without exudates. Moist mucosa NECK: Normal ROM, supple, no lymphadenopathy, JVD, or masses LUNGS: Breath sounds equal, clear to auscultation bilaterally. No wheezes, and no crackles HEART: Regular rate and rhythm, normal S1 and S2, no murmurs, rubs or gallops ABDOMEN: Soft, nontender, normoactive bowel sounds. No guarding, no rebound. No masses EXTREMITIES: Normal range of motion, 2+ pitting edema to mid-falk B/L. No clubbing or cyanosis. No cords, erythema, or tenderness NEUROLOGICAL: Cranial nerves II through XII grossly intact. Slurred speech. Motor and sensation grossly intact. SKIN: Warm, Dry, normal turgor, no rashes or lesions noted. - Medical Decision Making Pt well known to this ED, presents with intoxication. No visible signs of trauma. Pt with peripheral edema, refused blood draw to check kidney function and BNP. Will monitor to clinical sobriety in ED (also, it is approx 20 degrees outside at present, not safe to discharge him). <Fabiana Woodard - Last Filed: 05/07/18 00:41>
--- NOTE | 2018-05-07 07:37 | PDOC ---
*Physical Exam - Vital Signs Last Vital Signs Temp Pulse Resp BP Pulse Ox 92 H 18 134/68 97 05/06/18 18:13 05/06/18 18:13 05/06/18 18:13 05/06/18 18:13 - Physical Exam Comments: Sunil De Leon was a sign out to me at 2am 05/07/2018 Medical Decision Making - Medical Decision Making 05/07/18 07:32 Mr. De Leon is a 63 yo M well known to me and the department who presents with alcohol intoxication. Throughout the night, he denied having labs drawn. In the morning he was reassessed and he states he has his usual chronic back pain but nothing was new/acute. Pain management medicines were offered to him but he refused. Will discharge in the AM. *DC/Admit/Observation/Transfer Diagnosis at time of Disposition: Intoxication Chronic back pain Qualifiers: Back pain location: back pain in unspecified location Back pain laterality: unspecified Qualified Code(s): M54.9 - Dorsalgia, unspecified - Discharge Dispostion Disposition: HOME Condition at time of disposition: Stable - Referrals Referrals: [facility] [place] [facility] [place] [[place] Group] - Patient Instructions Printed Discharge Instructions: DI for Alcohol Abuse Additional Instructions: You were seen in the emergency department for the evaluation of your alcohol intoxication. You refused labs throughout the night and medicines to help with your chronic pain. You have been determined to be clinically sober and able to ambulate. Please follow up with your primary medical doctor within 72 hours for follow up care and management. Please seek senior living as the weather is getting chillier. Please return to the emergency department if you have seizures with alcohol withdrawal, sustain trauma while intoxicated, and develop unstable blood pressures and temperatures in setting of withdrawal. Thank you. - Post Discharge Activity
== END 2018-05-07 08:18 | disposition home or self-care (01) ==
LOC: JER 18:03
DX: F10.220 Alcohol dependence with intoxication, uncomplicated (principal); M54.5 Low back pain; G89.29 Other chronic pain; C45.9 Mesothelioma, unspecified; Z59.0 Homelessness
CPT/HCPCS: 99282-25

== ENCOUNTER 2018-05-07 20:54 | Inpatient (IN) | payer OTHER ==
--- NOTE | 2018-05-07 21:48 | PDOC ---
Rapid Medical Evaluation Chief Complaint: Back Pain Time Seen by Provider: 05/07/18 21:46 Medical Evaluation: Allergies Allergy/AdvReac Type Severity Reaction Status Date / Time Fish Containing Products Allergy Mild Swelling Verified 05/06/18 18:12 No Known Drug Allergies Allergy Verified 05/06/18 18:12 05/07/18 21:47 I have performed a brief in person evaluation of this patient. The patient presents with a chief complaints of: "My back hurts" (lumbar region ) w/o urinary or bowel dysfunction. Denies falling/trauma. Pt states he's been drinking today in celebration of Thanksgiving. Denies any cp, sob, abd pain. Pertinent physical exam findings: CTAB I have ordered the following:- The patient will proceed to the ED for further evaluation.
--- NOTE | 2018-05-07 23:50 | PDOC ---
Attending Attestation - Resident Resident Name: Anabell Dover - ED Attending Attestation I have performed the following: I have examined & evaluated the patient, The case was reviewed & discussed with the resident, I agree w/resident's findings & plan, Exceptions are as noted - Medical Decision Making 05/07/18 23:47 I, Dr. Skye Rashid, DO, attest that this document has been prepared under my direction and personally reviewed by me in its entirety. I further attest, that it accurately reflects all work, treatment, procedures and medical decision -making performed by me. 05/07/18 23:48 a/p: 63yo male admits to ETOH use tonight -pt with coarse bs -pt with 2+ swelling to his legs, which is new -will send labs -cxr, duplex ultrasound 05/07/18 23:50 pt refusing ultrasound and cxr agreeable to labs 05/08/18 00:58 pt refusing xray again intoxicated, but awake, alert low magnesium and potassium - will replace will continue to monitor and reassess <Skye Rashid - Last Filed: 05/08/18 00:58> - HPI HPI: 05/08/18 01:09 The patient is a 63 year old male, with a significant past medical history of EtOH use disorder, homelessness, chronic back pain, HTN, mesothelioma, and frequent falls/injuries, who presents to the emergency department with, alcohol intoxication and acute on chronic back pain. Patient was seen in the ED for similar symptoms yesterday. While in the ER, the patient was found to have bilateral pitting edema and swelling to the right hand. Allergies: Fish Social History: Alcoholic. - Physicial Exam PE: 05/08/18 01:09 +Constitutional: Intoxicated. Awake, alert, oriented. No acute distress. Head: Normocephalic. Atraumatic Eyes: PERRL. EOMI. Conjunctivae are not pale. +ENT: Rhinorrhea. Neck: Supple. Full ROM. No lymphadenopathy. Cardiovascular: Regular rate. Regular rhythm. S1, S2 regular. Distal pulses are 2+ and symmetric. +Pulmonary/Chest: Coarse breath sounds bilaterally. +Abdominal: Larger than normal. Soft and non-distended. There is no tenderness. No rebound, guarding or rigidity. Back: No CVA tenderness. +Musculoskeletal: 2+ bilateral lower extremity. No cyanosis. No clubbing. Full range of motion in all extremities. No calf tenderness. Radial/pedal pulses are intact and 2+ bilaterally Skin: Skin is warm and dry. No petechiae. No purpura. Neurological: Alert and oriented to person, place, and time. Cranial nerves II -XII are grossly intact. Normal speech. Strength is grossly symmetric. No sensory deficits. Psychiatric: Good eye contact. Normal interaction, affect and behavior. <Susu Gonzales - Last Filed: 05/08/18 01:10> Attestations - Attestations 05/08/18 01:10 Documentation prepared by Susu Gonzales, acting as general medical practitioner for Skye Rashid DO. <Susu Gonzales - Last Filed: 05/08/18 01:10>
--- NOTE | 2018-05-07 23:56 | PDOC ---
History of Present Illness - General Chief Complaint: Back Pain Stated Complaint: FALL Time Seen by Provider: 05/07/18 21:46 History Source: Patient, EMS Exam Limitations: Intoxication - History of Present Illness Initial Comments: 63YOM with h/o EtOH use disorder, homelessness, chronic back pain, HTN, mesothelioma, and frequent falls/injuries who was BIBEMS for alcohol intoxication and unchanged chronic back pain. He was seen here in the ED for the same thing last night. At that time he was found to have increased BLE pitting edema from his baseline and it was strongly recommended to him that he have blood drawn and thorough workup, but he refused throughout the whole visit. Tonight he has mild cough and right hand is a bit edematous as well. The patient himself is able to provide truncated history but this is limited by his intoxication. However he is more agreeable to labs today. Also conveys that he was seen two months ago at an oncology hospital in [facility] and it was recommended that he have pleural effusions drained at that time, but he refused. Past History - Past Medical History Allergies/Adverse Reactions: Allergies Allergy/AdvReac Type Severity Reaction Status Date / Time Fish Containing Products Allergy Mild Swelling Verified 05/06/18 18:12 No Known Drug Allergies Allergy Verified 05/06/18 18:12 Home Medications: Ambulatory Orders NK [No Known Home Medication] 04/11/18 Anemia: No Asthma: No Cancer: Yes (mesothelioma) Cardiac Disorders: No CVA: No COPD: No CHF: No DVT: No Dementia: No Diabetes: No GI Disorders: No Disorders: No HTN: Yes (non compliance) Hypercholesterolemia: No Kidney Stones: No Liver Disease: No Psychiatric Problems: Yes (alcoholism) Seizures: No Thyroid Disease: No - Surgical History Abdominal Surgery: No Appendectomy: No Cardiac Surgery: No Cholecystectomy: No Lung Surgery: No Neurologic Surgery: No Orthopedic Surgery: No - Family Disease History Family Disease History: CA: Mother - Reproductive History Testicular Surgery: No - Immunization History TDAP Vaccination: Yes Immunization Up to Date: Yes - Suicide/Smoking/Psychosocial Hx Smoking Status: No Smoking History: Never smoked Have you smoked in the past 12 months: No Number of Cigarettes Smoked Daily: 5 If you are a former smoker, when did you quit?: 0 Cigars Per Day: 0 'Breaking Loose' booklet given: 09/22/17 Hx Alcohol Use: Yes Drug/Substance Use Hx: No Substance Use Type: Alcohol Hx Substance Use Treatment: Yes ([facility] 02/08/18to 02/12/18) Review of Systems - Review of Systems Able to Perform ROS?: No (intoxication) *Physical Exam - Vital Signs Last Vital Signs Temp Pulse Resp BP Pulse Ox 98.1 F 88 20 106/75 97 05/07/18 21:47 05/07/18 21:47 05/07/18 21:47 05/07/18 21:47 05/07/18 21:47 GENERAL: odor of alcohol present, appears intoxicated, slurred speech, disheveled, unkempt, answers simple questions HEENT: PERRLA, EOMI, moist mucous membranes, no e/o facial trauma NECK/BACK: no spinal stepoff or deformity, no hematoma, neck supple CARDIOVASCULAR: regular rate/rhythm, normal S1S2, no MGR, capillary refill <2 seconds, extremities wwp, 2+ pitting edema BLE LUNGS/RESPIRATORY: nonlabored respirations, lungs CTAB GI/ABDOMEN: symmetric [id number], normoactive BS, soft, no midline pulsatile masses, no organomegaly : no CVA ttp EXTREMITIES: no muscle atrophy, no acute deformity, 2+ pitting edema BLE unchanged from last night SKIN: warm and dry, no pallor, no jaundice, no rash, no bruising, no skin breakdown, no cuts NEUROLOGICAL: CN II-XII grossly intact, no obvious facial droop, moving all four extremities ED Treatment Course - LABORATORY CBC & Chemistry Diagram: 05/08/18 00:03 05/08/18 14:00 - RADIOLOGY Radiology Studies Ordered: Category Date Time Status CHEST PA & LAT [RAD] Stat Radiology 05/07/18 23:48 Ordered Medical Decision Making - Medical Decision Making 63 YOM with long-standing h/o EtOH use disorder, back pain, p/w same cc but again found with BLE pitting edema. Initial Vital Signs Temp Pulse Resp BP Pulse Ox 98.1 F 88 20 106/75 97 05/07/18 21:47 05/07/18 21:47 05/07/18 21:47 05/07/18 21:47 05/07/18 21:47 Exam: As noted in Physical Exam section. BLE Pitting edema concerning for CHF, malnutrition/malnourishment, beriberi, malignancy, etc. W/U ordered: CBCD CMP Mg Phos Cardiac panel BNP EtOH serum CXR (patient initially refusing CXR but will try) TX ordered: None at this time CXR: Patient refuses. Laboratory Tests 05/08/18 05/08/18 05/08/18 00:03 00:03 00:03 WBC 4.7 RBC 3.75 L Hgb 9.5 L Hct 30.2 L MCV 80.5 MCH 25.3 L MCHC 31.4 L RDW 21.8 H Plt Count 352 D MPV 6.9 L D Absolute Neuts (auto) 2.0 Neutrophils % 41.7 L Lymphocytes % 46.7 H Monocytes % 4.2 Eosinophils % 6.0 H Basophils % 1.4 D Nucleated RBC % 0 Hypochromia 1+ Platelet Estimate Adequate Platelet Comment Large platelets Poikilocytosis 1+ Anisocytosis 2+ Microcytosis 1+ Spherocytes 1+ Sodium 146 H Potassium 3.1 L Chloride 108 H Carbon Dioxide 31 Anion Gap 8 BUN 8 Creatinine 0.5 L Creat Clearance w eGFR > 60 Random Glucose 93 Calcium 8.0 L Phosphorus 3.3 Magnesium 1.4 L Total Bilirubin 0.3 AST 38 H ALT 31 Alkaline Phosphatase 115 Creatine Kinase 191 Creatine Kinase Index 2.6 CK-MB (CK-2) 5.0 H Troponin I < 0.02 B-Natriuretic Peptide 103.3 Total Protein 6.8 Albumin 3.0 L Alcohol, Quantitative 321.3 H Reassessment: Patient remains intoxicated, sleeping comfortably on his left side , snoring. Patient's care is endorsed to night team resident and attending at the end of my shift. Pending sobriety and dispo decision making. *DC/Admit/Observation/Transfer Diagnosis at time of Disposition: Hypomagnesemia, Alcohol dependence with uncomplicated withdrawal Chronic back pain Qualifiers: Back pain location: back pain in unspecified location Back pain laterality: unspecified Qualified Code(s): M54.9 - Dorsalgia, unspecified - Discharge Dispostion Condition at time of disposition: Guarded - Referrals - Patient Instructions - Post Discharge Activity
[2018-05-08 00:19] LABS: BASO % 1.4 % (0-2.0); HEMATOCRIT 30.2 % (35.4-49); HEMOGLOBIN 9.5 GM/dL (11.7-16.9); LYMPH % 46.7 % (8-40); MCH 25.3 pg (25.7-33.7); MCHC 31.4 g/dl (32.0-35.9); MEAN CELL VOLUME 80.5 fl (80-96); MEAN PLT VOLUME 6.9 fl (7.5-11.1); MONO % 4.2 % (3.8-10.2); NEUT % 41.7 % (42.8-82.8); PLATELET COUNT 352 K/MM3 (134-434); RBC 3.75 M/mm3 (4.00-5.60); RDW 21.8 % (11.9-15.9); WHITE BLOOD COUNT 4.7 K/mm3 (4.0-10.0)
[2018-05-08 00:46] LABS: ALK PHOS 115 U/L (45-117); ANION GAP 8 MMOL/L (8-16); BILIRUBIN,TOTAL 0.3 mg/dL (0.2-1); BLOOD UREA NITROGEN 8 mg/dL (7-18); CHLORIDE 108 mmol/L (98-107); CO2 31 mmol/L (21-32); CREATININE 0.5 mg/dL (0.55-1.3); GLUCOSE,RANDOM 93 mg/dL (74-106); MAGNESIUM 1.4 mg/dL (1.8-2.4); N-TERMINAL BNP 103.3 pg/ml (5-125); PHOSPHOROUS 3.3 mg/dL (2.5-4.9); POTASSIUM 3.1 mmol/L (3.5-5.1); SGOT/AST 38 U/L (15-37); SGPT/ALT 31 U/L (13-61); SODIUM 146 mmol/L (136-145); TOT PROT 6.8 g/dl (6.4-8.2)
[2018-05-08 01:04] LABS: ANISOCYTOSIS 2+; PLATELET ESTIMATE ADEQUATE
[2018-05-08] MEDS ORDERED: MAGNESIUM OXIDE 400 MG TABLET (FP) PO ONE (02:16)
[2018-05-08] MEDS ORDERED: POTASSIUM CHLORIDE TABS 20 MEQ TABLET.ER (FP) PO ONE ×2 (02:18→02:34)
[2018-05-08] MEDS ORDERED: MAGNESIUM OXIDE 400 MG TABLET (FP) ONE (02:34)
[2018-05-08] MEDS ORDERED: FOLIC ACID INJECTION - 1 MG, THIAMINE HCL 100 MG, MULTIVIT INJECTION ADULT 10 ML in SOD... IVPB ONE (02:59)
[2018-05-08] MEDS ORDERED: KCL 10 MEQ IVPB 10 MEQ/100 ML INFUS.BAG IVPB ONE ×3 (03:14→05:21)
[2018-05-08] MEDS: KCL 10 MEQ IVPB 10 MEQ/100 ML INFUS.BAG IVPB SCH ×3 (03:20→07:20)
--- NOTE | 2018-05-08 06:59 | PDOC ---
*Physical Exam - Vital Signs Last Vital Signs Temp Pulse Resp BP Pulse Ox 98.1 F 88 20 106/75 97 05/07/18 21:47 05/07/18 21:47 05/07/18 21:47 05/07/18 21:47 05/07/18 21:47 - Physical Exam Comments: I received sign out from Dr. Dover at 2:00am. ED Treatment Course - LABORATORY CBC & Chemistry Diagram: 05/08/18 00:03 05/08/18 08:10 - ADDITIONAL ORDERS Additional order review: Laboratory Results 05/08/18 05/08/18 00:03 00:03 Sodium 146 H Potassium 3.1 L Chloride 108 H Carbon Dioxide 31 Anion Gap 8 BUN 8 Creatinine 0.5 L Creat Clearance w eGFR > 60 Random Glucose 93 Calcium 8.0 L Phosphorus 3.3 Magnesium 1.4 L Total Bilirubin 0.3 AST 38 H ALT 31 Alkaline Phosphatase 115 Creatine Kinase 191 Creatine Kinase Index 2.6 CK-MB (CK-2) 5.0 H Troponin I < 0.02 B-Natriuretic Peptide 103.3 Total Protein 6.8 Albumin 3.0 L Alcohol, Quantitative 321.3 H 05/08/18 00:03 RBC 3.75 L MCV 80.5 MCHC 31.4 L RDW 21.8 H MPV 6.9 L D Neutrophils % 41.7 L Lymphocytes % 46.7 H Monocytes % 4.2 Eosinophils % 6.0 H Basophils % 1.4 D - Medications Given in the ED: ED Medications Discontinued Medications Generic Name Dose Route Start Last Admin Trade Name Freq PRN Reason Stop Dose Admin Potassium Chloride 10 meq in 100 mls @ 100 mls/hr 05/08/18 03:00 05/08/18 04: 35 Potassium Chloride 10 Meq Premix Ivpb - IVPB 05/08/18 05:59 100 mls/hr Q60M CAREY Administration Magnesium Oxide 400 mg 05/08/18 02:16 05/08/18 02:42 Mag-Ox - PO 05/08/18 02:17 400 mg ONCE ONE Administration Potassium Chloride 40 meq 05/08/18 02:18 05/08/18 02:42 K-Dur - PO 05/08/18 02:19 Not Given ONCE ONE Medical Decision Making - Medical Decision Making Patient was reassessed by me. His magnesium and potassium were low (1.4 and 3.1 respectively). Magnesium and potassium PO were ordered. He accepted the magnesium but rejected the PO potassium on grounds that is upsets his stomach. I spoke with him about IV potassium with banana bag. He accepted this plan. Three 10 meq bags were ordered as well as the banana bag. He continued to refuse the cxr. Before sign out at 6:55 am, the patient complained of feeling "very hot" and wanted the IV taken out after the second 10 meq of potassium was finished, thus the third bag was never done. He was amendable to getting the cxr and expressed wishes to be admitted. 100 mg of librium was ordered due to tachycardia, shaking , and known history of alcohol withdrawal. Dipo: Sign out to AM team. *DC/Admit/Observation/Transfer Diagnosis at time of Disposition: Hypomagnesemia, Alcohol dependence with uncomplicated withdrawal - Discharge Dispostion Condition at time of disposition: Stable - Referrals - Patient Instructions - Post Discharge Activity
[2018-05-08] MEDS ORDERED: chlordiazePOXIDE HCL 25 MG CAPSULE PO ONE (07:01)
[2018-05-08] MEDS ORDERED: chlordiazePOXIDE HCL 25 MG CAPSULE ONE (07:28)
--- NOTE | 2018-05-08 07:48 | PDOC ---
*Physical Exam - Vital Signs Last Vital Signs Temp Pulse Resp BP Pulse Ox 98.4 F 75 20 139/79 96 05/07/18 22:40 05/07/18 22:40 05/07/18 22:40 05/07/18 22:40 05/07/18 22:40 - Physical Exam Comments: 05/08/18 07:47 The patient was signed out to me by Dr Danilo Peace. Microblog was sent to Hospitalist for admission. 05/08/18 09:24 Magnesium came back 1.1, additional 4 g of IV Mg was ordered, CXR still pending. ED Treatment Course - LABORATORY CBC & Chemistry Diagram: 05/08/18 00:03 05/08/18 14:00 - ADDITIONAL ORDERS Additional order review: Laboratory Results 05/08/18 05/08/18 00:03 00:03 Sodium 146 H Potassium 3.1 L Chloride 108 H Carbon Dioxide 31 Anion Gap 8 BUN 8 Creatinine 0.5 L Creat Clearance w eGFR > 60 Random Glucose 93 Calcium 8.0 L Phosphorus 3.3 Magnesium 1.4 L Total Bilirubin 0.3 AST 38 H ALT 31 Alkaline Phosphatase 115 Creatine Kinase 191 Creatine Kinase Index 2.6 CK-MB (CK-2) 5.0 H Troponin I < 0.02 B-Natriuretic Peptide 103.3 Total Protein 6.8 Albumin 3.0 L Alcohol, Quantitative 321.3 H 05/08/18 00:03 RBC 3.75 L MCV 80.5 MCHC 31.4 L RDW 21.8 H MPV 6.9 L D Neutrophils % 41.7 L Lymphocytes % 46.7 H Monocytes % 4.2 Eosinophils % 6.0 H Basophils % 1.4 D - Medications Given in the ED: ED Medications Discontinued Medications Generic Name Dose Route Start Last Admin Trade Name Freq PRN Reason Stop Dose Admin Chlordiazepoxide HCl 100 mg 05/08/18 07:01 05/08/18 07:34 Librium - PO 05/08/18 07:02 100 mg ONCE ONE Administration Potassium Chloride 10 meq in 100 mls @ 100 mls/hr 05/08/18 03:00 05/08/18 07: 20 Potassium Chloride 10 Meq Premix Ivpb - IVPB 05/08/18 05:59 Not Given Q60M [facility] Magnesium Oxide 400 mg 05/08/18 02:16 05/08/18 02:42 Mag-Ox - PO 05/08/18 02:17 400 mg ONCE ONE Administration Potassium Chloride 40 meq 05/08/18 02:18 05/08/18 02:42 K-Dur - PO 05/08/18 02:19 Not Given ONCE ONE *DC/Admit/Observation/Transfer Diagnosis at time of Disposition: Hypomagnesemia, Alcohol dependence with uncomplicated withdrawal - Discharge Dispostion Condition at time of disposition: Stable Decision to Admit order: Yes - Referrals - Patient Instructions - Post Discharge Activity
[2018-05-08 08:52] LABS: BLOOD UREA NITROGEN 8 mg/dL (7-18); CHLORIDE 109 mmol/L (98-107); CO2 28 mmol/L (21-32); CREATININE 0.5 mg/dL (0.55-1.3); GLUCOSE,RANDOM 81 mg/dL (74-106); POTASSIUM 3.6 mmol/L (3.5-5.1); SODIUM 147 mmol/L (136-145)
[2018-05-08 08:53] LABS: ANION GAP 10 MMOL/L (8-16); CALCIUM 7.8 mg/dL (8.5-10.1); MAGNESIUM 1.1 mg/dL (1.8-2.4)
[2018-05-08] MEDS ORDERED: MAGNESIUM SULF 50% (8.12 MEQ/2 ML-1 GM VIAL) IVPB ONE (09:19)
--- NOTE | 2018-05-08 09:39 | HP ---
Admitting History and Physical - Primary Care Physician PCP: None - Admission Chief Complaint: passed out History of Present Illness: 63 yo M h/o alcohol dependence with multiple ED visits for EtOH intoxication who presented to the ED again for EtOH intoxication. Patient stated he passed out on a bench yesterday on the street and that was the last thing he could remember. He reported n/v, joint pain, headache, and productive cough with green sputum production. Patient according to ED staff denied chest pain, blurred vision, shortness of breath, abdominal pain, diarrhea, constipation, visual or auditory hallucinations, fever, chills. History Source: Patient Limitations to Obtaining History: Intoxication - Past Medical History Cardiovascular: Yes: HTN Pulmonary: Yes: Other (Mesothelioma) Psych: Yes: Addictions Musculoskeletal: Yes: Chronic low back pain - Past Surgical History Past Surgical History: Yes: None - Smoking History Smoking history: Never smoked Have you smoked in the past 12 months: No Aproximately how many cigarettes per day: 5 If you are a former smoker, when did you quit?: 0 - Alcohol/Substance Use Hx Alcohol Use: Yes History of Substance Use: reports: None - Social History ADL: Support Services Occupation: Patient is on SSI, 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 History of Recent Travel: No Home Medications - Allergies Allergies/Adverse Reactions: Allergies Allergy/AdvReac Type Severity Reaction Status Date / Time Fish Containing Products Allergy Mild Swelling Verified 05/06/18 18:12 No Known Drug Allergies Allergy Verified 05/06/18 18:12 - Home Medications Home Medications: Ambulatory Orders NK [No Known Home Medication] 04/11/18 Family Disease History - Family Disease History Family Disease History: CA: Mother (), Brother (Colon CA), Other: Grandparent (ALCOHOLISM), Father (ALCOHOL,), Son () Review of Systems - Review of Systems Constitutional: denies: Chills, Diaphoresis, Fever Cardiovascular: reports: Edema. denies: Chest Pain, Shortness of Breath Respiratory: reports: Cough Gastrointestinal: reports: Nausea, Vomiting Genitourinary: reports: No Symptoms Musculoskeletal: reports: Back Pain, Muscle Pain Psychiatric: denies: Hallucinations Physical Examination Vital Signs: Vital Signs Temperature 98.4 F 05/07/18 22:40 Pulse Rate 75 05/07/18 22:40 Respiratory Rate 20 05/07/18 22:40 Blood Pressure 139/79 05/07/18 22:40 O2 Sat by Pulse Oximetry (%) 96 05/07/18 22:40 Constitutional: Yes: No Distress, Obese Eyes: Yes: Conjunctiva Clear HENT: Yes: Atraumatic, Normocephalic Cardiovascular: Yes: Regular Rate and Rhythm, Tachycardia, S1, S2. No: Murmur Respiratory: Yes: Regular, CTA Bilaterally Gastrointestinal: Yes: Normal Bowel Sounds, Abdomen, Obese Edema: Yes Edema: LLE: 1+, RLE: 1+ Peripheral Pulses WNL: Yes Neurological: Yes: Alert, Tremors. No: Oriented Labs: CBC, BMP 05/08/18 00:03 05/08/18 08:10 Imaging - Results EKG: Report Reviewed, Image Reviewed Assessment/Plan 63 yo M h/o EtOH dependence and frequent intoxication admitted to tele obs for alcohol intoxication. 1. EtOH intoxication: CIWA ~ 10, FS to monitor glc; Folic acid, Thiamine, daily MV daily. Ativan 1mg IVP Q6H PRN for any signs of withdrawals 2. Hypernatremia: free water deficit of ~2.3L, encourage water intake 3. Hypomagnesia: repleted with PO MgO 400mg and IV MgSO4 4mg, will recheck BMP later 4. Cough: aspiration vs. CAP, will do CXR and monitor vitals 5. Prolonged QTc: avoid QT prolonging agent, repeat EKG 6. Prophylaxis: SCDs 7. Regular diet Visit type - Emergency Visit Emergency Visit: Yes ED Registration Date: 05/08/18 Care time: The patient presented to the Emergency Department on the above date and was hospitalized for further evaluation of their emergent condition. - New Patient This patient is new to me today: Yes Date on this admission: 05/08/18 - Critical Care Critical Care patient: No
[2018-05-08] MEDS ORDERED: LORazepam 2 MG/ML SDV VIAL IVPUSH PRN ×2 (10:14→18:10)
--- NOTE | 2018-05-08 13:30 | PN ---
Teaching Attending Note Name of Resident: Oleg Barajas ATTENDING PHYSICIAN STATEMENT I saw and evaluated the patient. I reviewed the resident's note and discussed the case with the resident. I agree with the resident's findings and plan as documented with exceptions below. SUBJECTIVE: 63 yom with PMhx of alcohol abuse, frequent ED visits for alcohol intoxication, came to ED with alcohol intoxication. Patient currently awake, reports drank 1 pint vodka yesterday, unsure if fell. C/o headache and generalized bodyaches. Unsure if had any vomitting. Interested in detox but does not want to go to [facility]. 12 point ROS done, reports overall feels 'lousy' but no focal symptoms. OBJECTIVE: Vital Signs Period Temp Pulse Resp BP Sys/Jang Pulse Ox Last 24 Hr 98.1 F-98.4 F 75-88 20-20 106-139/75-79 96-97 Intake & Output 05/05/18 05/06/18 05/07/18 05/08/18 23:59 23:59 23:59 23:59 Weight 204 lb GENERAL: Awake, flushed, no acute distress HEAD: Normal with no signs of trauma. EYES: Pupils equal, round and reactive to light, extraocular movements intact, sclera anicteric, conjunctiva clear. No lid lag. EARS, NOSE, THROAT: Ears normal, nares patent, oropharynx clear without exudates. Mildly dry mucous membranes. NECK: Normal range of motion, no JVD, no spinal tenderness LUNGS: Breath sounds equal, clear to auscultation bilaterally. No wheezes, and no crackles. No accessory muscle use. HEART: S1S2 regular ABDOMEN: Soft, nontender, not distended, normoactive bowel sounds, no guarding, no rebound, no masses. Obese MUSCULOSKELETAL: Normal range of motion at all joints. No bony deformities or tenderness. No CVA tenderness. UPPER EXTREMITIES: 2+ pulses, warm, well-perfused. No cyanosis. No clubbing. No peripheral edema. LOWER EXTREMITIES: 2+ pedal edema (chronic per patient) NEUROLOGICAL: Facial symmetry, PERRL, tongue midline, EOMI, power 5/5 sensation intact and symmetric to light touch, non focal exam PSYCHIATRIC: Cooperative. Good eye contact. Appropriate mood and affect. SKIN: Warm, dry, normal turgor, no rashes or lesions noted, normal capillary refill. Home Medications Medication Instructions Recorded NK [No Known Home Medication] 04/11/18 Active Medications Folic Acid (Folic Acid -) 1 mg PO DAILY CAREY Lorazepam (Ativan Injection -) 1 mg IVPUSH Q6H PRN PRN Reason: ANXIETY Multivitamins/Minerals/Vitamin C (Tab-A-Vit -) 1 tab PO DAILY [facility] Thiamine HCl (Vitamin B1 -) 100 mg PO DAILY [facility] Laboratory Results - last 24 hr 05/08/18 05/08/18 05/08/18 00:03 00:03 00:03 WBC 4.7 RBC 3.75 L Hgb 9.5 L Hct 30.2 L MCV 80.5 MCH 25.3 L MCHC 31.4 L RDW 21.8 H Plt Count 352 D MPV 6.9 L D Absolute Neuts (auto) 2.0 Neutrophils % 41.7 L Lymphocytes % 46.7 H Monocytes % 4.2 Eosinophils % 6.0 H Basophils % 1.4 D Nucleated RBC % 0 Hypochromia 1+ Platelet Estimate Adequate Platelet Comment Large platelets Poikilocytosis 1+ Anisocytosis 2+ Microcytosis 1+ Spherocytes 1+ Sodium 146 H Potassium 3.1 L Chloride 108 H Carbon Dioxide 31 Anion Gap 8 BUN 8 Creatinine 0.5 L Creat Clearance w eGFR > 60 Random Glucose 93 Calcium 8.0 L Phosphorus 3.3 Magnesium 1.4 L Total Bilirubin 0.3 AST 38 H ALT 31 Alkaline Phosphatase 115 Creatine Kinase 191 Creatine Kinase Index 2.6 CK-MB (CK-2) 5.0 H Troponin I < 0.02 B-Natriuretic Peptide 103.3 Total Protein 6.8 Albumin 3.0 L Alcohol, Quantitative 321.3 H 05/08/18 08:10 WBC RBC Hgb Hct MCV MCH MCHC RDW Plt Count MPV Absolute Neuts (auto) Neutrophils % Lymphocytes % Monocytes % Eosinophils % Basophils % Nucleated RBC % Hypochromia Platelet Estimate Platelet Comment Poikilocytosis Anisocytosis Microcytosis Spherocytes Sodium 147 H Potassium 3.6 Chloride 109 H Carbon Dioxide 28 Anion Gap 10 BUN 8 Creatinine 0.5 L Creat Clearance w eGFR > 60 Random Glucose 81 Calcium 7.8 L Phosphorus Magnesium 1.1 L Total Bilirubin AST ALT Alkaline Phosphatase Creatine Kinase Creatine Kinase Index CK-MB (CK-2) Troponin I B-Natriuretic Peptide Total Protein Albumin Alcohol, Quantitative CT brain/Cspine/CXR results noted ASSESSMENT AND PLAN: 63 yom with PMHx of alcohol abuse, admitted with alcohol intoxication/ withdrawal and hypokalemia/severe hypomagnesemia -Alcohol intoxication/withdrawal -Severe hypomagnesemia -Hypokalemia -Unwitnessed fall?? -Alcohol abuse/dependence Plan: Check EKG, IV Mg, monitor levels. Replete K. Telemetry. CT brain/Cpsine non concerning, fall precautions. Detox consult. Librium prn for now. FOlate/thiamine/MVI D5-1/2 NS with K for now DVTPPX with SCDs admit to observation telemetry. D/c in 24 hours if no continues to improve. Plan discussed with patient in detail, all questions answered. Total admit time 50 min
[2018-05-08] MEDS ORDERED: D5-1/2NS+20 MEQ KCL - 20 MEQ/1,000 ML INFUS.BAG IV SCH (13:45)
[2018-05-08 15:30] VITALS: BMI 35.3
[2018-05-08] MEDS: chlordiazePOXIDE HCL 25 MG CAPSULE PO PRN (15:39)
[2018-05-08 16:51] LABS: ANION GAP 8 MMOL/L (8-16); BLOOD UREA NITROGEN 7 mg/dL (7-18); CALCIUM 7.7 mg/dL (8.5-10.1); CHLORIDE 104 mmol/L (98-107); CO2 31 mmol/L (21-32); CREATININE 0.6 mg/dL (0.55-1.3); GLUCOSE,RANDOM 76 mg/dL (74-106); POTASSIUM 3.3 mmol/L (3.5-5.1); SODIUM 143 mmol/L (136-145)
[2018-05-08 18:08] LABS: PHOSPHOROUS 2.8 mg/dL (2.5-4.9)
[2018-05-08] MEDS ORDERED: KCL 10 MEQ IVPB 10 MEQ/100 ML INFUS.BAG IVPB SCH (18:30)
[2018-05-09] MEDS: chlordiazePOXIDE HCL 25 MG CAPSULE PO PRN (05:45)
[2018-05-09 07:44] LABS: HEMATOCRIT 29.4 % (35.4-49); HEMOGLOBIN 9.9 GM/dL (11.7-16.9); MCH 26.3 pg (25.7-33.7); MCHC 33.6 g/dl (32.0-35.9); MEAN CELL VOLUME 78.2 fl (80-96); MEAN PLT VOLUME 7.7 fl (7.5-11.1); PLATELET COUNT 376 K/MM3 (134-434); RBC 3.76 M/mm3 (4.00-5.60); RDW 21.4 % (11.9-15.9); WHITE BLOOD COUNT 5.9 K/mm3 (4.0-10.0)
[2018-05-09 08:16] LABS: ANION GAP 8 MMOL/L (8-16); BLOOD UREA NITROGEN 6 mg/dL (7-18); CALCIUM 7.9 mg/dL (8.5-10.1); CHLORIDE 101 mmol/L (98-107); CO2 29 mmol/L (21-32); CREATININE 0.5 mg/dL (0.55-1.3); GLUCOSE,RANDOM 92 mg/dL (74-106); MAGNESIUM 1.8 mg/dL (1.8-2.4); POTASSIUM 3.4 mmol/L (3.5-5.1); SODIUM 139 mmol/L (136-145)
[2018-05-09] MEDS: MAGNESIUM OXIDE 400 MG TABLET (FP) PO SCH (10:32)
[2018-05-09] MEDS: FOLIC ACID 1 MG TABLET (FP) PO SCH (10:32)
[2018-05-09] MEDS: THIAMINE HCL 100 MG TABLET (FP) PO SCH (10:32)
[2018-05-09] MEDS: MULTIVITAMINS (DAILY MVI) TABLET (FP) PO SCH (10:32)
--- NOTE | 2018-05-09 13:29 | EKG ---
Test Reason : Blood Pressure : / mmHG Vent. Rate : 090 BPM Atrial Rate : 090 BPM P-R Int : 148 ms QRS Dur : 096 ms QT Int : 424 ms P-R-T Axes : 049 -32 046 degrees QTc Int : 518 ms SINUS RHYTHM WITH PREMATURE ATRIAL COMPLEXES LEFT AXIS DEVIATION NONSPECIFIC T WAVE ABNORMALITY PROLONGED QT ABNORMAL ECG WHEN COMPARED WITH ECG OF 08-MAY-2018 12:16, NO SIGNIFICANT CHANGE WAS FOUND Confirmed by HARJINDER VALLADARES MD ([id number]) on 05/09/2018 1:29:27 PM Referred By: Janelle MENON Confirmed By:HARJINDER VALLADARES MD
--- NOTE | 2018-05-09 13:30 | PN ---
Physical Exam: SUBJECTIVE: Patient seen and examined, reports feeling unsteady and worried about falling, does not feel safe for d/c, does not want to go to [facility]. OBJECTIVE: Vital Signs Period Temp Pulse Resp BP Sys/Jang Pulse Ox Last 24 Hr 89.1 F-99.0 F 85-101 18-20 148-176/87-109 95-95 GENERAL: The patient is awake, alert, and fully oriented, in no acute distress. HEAD: Normal with no signs of trauma. EYES: PERRL, extraocular movements intact, sclera anicteric, conjunctiva clear. No ptosis. Neck: soft, supple, no JVD Chest: decreased effort, no rales or wheezing Abdomen: soft, obese, NT extremities: no edema Laboratory Results - last 24 hr 05/08/18 05/09/18 05/09/18 14:00 06:25 06:25 WBC 5.9 RBC 3.76 L Hgb 9.9 L Hct 29.4 L MCV 78.2 L MCH 26.3 MCHC 33.6 RDW 21.4 H Plt Count 376 MPV 7.7 D Sodium 143 139 Potassium 3.3 L 3.4 L Chloride 104 101 Carbon Dioxide 31 29 Anion Gap 8 8 BUN 7 6 L Creatinine 0.6 0.5 L Creat Clearance w eGFR > 60 > 60 Random Glucose 76 92 Calcium 7.7 L 7.9 L Phosphorus 2.8 Magnesium 2.0 1.8 Active Medications Generic Name Dose Route Start Last Admin Trade Name Freq PRN Reason Stop Dose Admin Chlordiazepoxide HCl 25 mg 05/08/18 13:34 05/09/18 05:45 Librium - PO 25 mg Q6H PRN Administration WITHDRAWAL(CONT SUBST) Chlordiazepoxide HCl 50 mg 05/09/18 17:00 Librium - PO 05/10/18 11:01 [id number] CAREY Chlordiazepoxide HCl 25 mg 05/10/18 17:00 Librium - PO 05/11/18 11:01 [id number] CAREY Chlordiazepoxide HCl 15 mg 05/11/18 17:00 Librium - PO 05/12/18 11:01 [id number] CAREY Chlordiazepoxide HCl 10 mg 05/12/18 17:00 Librium - PO 05/13/18 11:01 [id number] CAREY Folic Acid 1 mg 05/09/18 10:00 05/09/18 10:32 Folic Acid - PO 1 mg DAILY CAREY Administration Potassium Chloride 10 meq in 100 mls @ 100 mls/hr 05/09/18 13:30 Potassium Chloride 10 Meq Premix Ivpb - IVPB 05/09/18 16:29 Q60M C[facility] Magnesium Oxide 800 mg 05/09/18 10:00 05/09/18 10:32 Mag-Ox - PO 05/13/18 10:01 800 mg DAILY CAREY Administration Multivitamins/Minerals/Vitamin C 1 tab 05/09/18 10:00 05/09/18 10:32 Tab-A-Vit - PO 1 tab DAILY CAREY Administration Thiamine HCl 100 mg 05/09/18 10:00 05/09/18 10:32 Vitamin B1 - PO 100 mg DAILY CAREY Administration ASSESSMENT/PLAN: 63 yom with PMHx of alcohol abuse, admitted with alcohol intoxication/ withdrawal and hypokalemia/severe hypomagnesemia -Alcohol intoxication/withdrawal -Severe hypomagnesemia -Hypokalemia -Unwitnessed fall?? -Alcohol abuse/dependence -Gait instability Plan: Awake improved. PO Mg x 5 doses. Additional KCL IV (patient reports stomach upset with PO) DC IVF. Does not want to go to [facility]. Feels unsafe to go home as unsteady. PT latonya noted, recommend SNF. Discussed with social work, plan for SNF when arrangements made. Hypertensive/tachycardic yesterday requiring IV ativan. Place on librium detox. Detox consult placed Admit to inpatient given alcohol withdrawal, need for electrolyte repletion and unsafe disposition currently. Dispo to SNF when arrangements made if clinically improved. Plan discussed with patient, RN and social work in detail, all questions answered. Visit type - Emergency Visit Emergency Visit: Yes ED Registration Date: 05/09/18 Care time: The patient presented to the Emergency Department on the above date and was hospitalized for further evaluation of their emergent condition. - New Patient This patient is new to me today: No - Critical Care Critical Care patient: No - Discharge Referral Referred to [facility] Med P.C.: No
--- NOTE | 2018-05-09 13:43 | EKG ---
Test Reason : Blood Pressure : / mmHG Vent. Rate : 100 BPM Atrial Rate : 100 BPM P-R Int : 200 ms QRS Dur : 090 ms QT Int : 362 ms P-R-T Axes : 036 -28 049 degrees QTc Int : 466 ms SINUS RHYTHM WITH PREMATURE ATRIAL COMPLEXES OTHERWISE NORMAL ECG WHEN COMPARED WITH ECG OF 05-APR-2018 09:56, PREMATURE ATRIAL COMPLEXES ARE NOW PRESENT Confirmed by HARJINDER VALLADARES MD ([id number]) on 05/09/2018 1:43:41 PM Referred By: Confirmed By:HARJINDER VALLADARES MD
[2018-05-09] MEDS ORDERED: KCL 10 MEQ IVPB 10 MEQ/100 ML INFUS.BAG IVPB SCH (14:15)
[2018-05-09] MEDS ORDERED: chlordiazePOXIDE HCL 25 MG CAPSULE PO SCH ×2 (14:15→17:00)
[2018-05-09] MEDS ORDERED: chlordiazePOXIDE HCL 25 MG CAPSULE PO PRN (14:23)
[2018-05-09] MEDS ORDERED: POTASSIUM CHLORIDE ORAL LIQUID 20 MEQ/15 ML PO ONE (15:24)
[2018-05-09] MEDS ORDERED: ACETAMINOPHEN 325 MG TABLET (FP) PO PRN (17:09)
[2018-05-09] MEDS: chlordiazePOXIDE HCL 25 MG CAPSULE PO SCH ×2 (17:46→22:14)
[2018-05-10] MEDS: chlordiazePOXIDE HCL 25 MG CAPSULE PO SCH (05:57)
[2018-05-10 06:37] LABS: BASO % 0.8 % (0-2.0); EOS % 4.4 % (0-4.5); HEMATOCRIT 29.4 % (35.4-49); HEMOGLOBIN 9.2 GM/dL (11.7-16.9); LYMPH % 22.7 % (8-40); MCH 24.9 pg (25.7-33.7); MCHC 31.3 g/dl (32.0-35.9); MEAN CELL VOLUME 79.5 fl (80-96); MEAN PLT VOLUME 7.4 fl (7.5-11.1); MONO % 5.8 % (3.8-10.2); NEUT % 66.3 % (42.8-82.8); PLATELET COUNT 300 K/MM3 (134-434); RDW 21.4 % (11.9-15.9); WHITE BLOOD COUNT 6.3 K/mm3 (4.0-10.0)
[2018-05-10 06:52] LABS: INR 1.1 (0.83-1.09)
[2018-05-10 07:31] LABS: ALBUMIN 2.9 g/dl (3.4-5.0); ALK PHOS 107 U/L (45-117); ANION GAP 9 MMOL/L (8-16); BILIRUBIN,TOTAL 0.8 mg/dL (0.2-1); BLOOD UREA NITROGEN 6 mg/dL (7-18); CALCIUM 7.8 mg/dL (8.5-10.1); CHLORIDE 103 mmol/L (98-107); CO2 27 mmol/L (21-32); CREATININE 0.5 mg/dL (0.55-1.3); GLUCOSE,RANDOM 80 mg/dL (74-106); MAGNESIUM 1.8 mg/dL (1.8-2.4); PHOSPHOROUS 3.6 mg/dL (2.5-4.9); POTASSIUM 3.2 mmol/L (3.5-5.1); SGOT/AST 30 U/L (15-37); SGPT/ALT 21 U/L (13-61); SODIUM 138 mmol/L (136-145)
[2018-05-10] MEDS: THIAMINE HCL 100 MG TABLET (FP) PO SCH (09:43)
[2018-05-10] MEDS: FOLIC ACID 1 MG TABLET (FP) PO SCH (09:43)
[2018-05-10] MEDS: MULTIVITAMINS (DAILY MVI) TABLET (FP) PO SCH (09:43)
[2018-05-10] MEDS: MAGNESIUM OXIDE 400 MG TABLET (FP) PO SCH (09:44)
[2018-05-10] MEDS: chlordiazePOXIDE 5 MG CAPSULE PO SCH ×3 (11:36→22:29)
--- NOTE | 2018-05-10 12:17 | PN ---
Teaching Attending Note Name of Resident: James Bridges ATTENDING PHYSICIAN STATEMENT I saw and evaluated the patient. I reviewed the resident's note and discussed the case with the resident. I agree with the resident's findings and plan as documented with exceptions below. SUBJECTIVE: Patient seen and examined. Interested in detox but does not want to go to [facility]. OBJECTIVE: Vital Signs Period Temp Pulse Resp BP Sys/Jang Pulse Ox Last 24 Hr 98.6 F-100.0 F 88-94 18-20 115-160/74-100 95-96 Intake & Output 05/07/18 05/08/18 05/09/18 05/10/18 23:59 23:59 23:59 23:59 Intake Total 1100 700 400 Output Total 1600 1400 850 Balance -500 -700 -450 Weight 204 lb 246 lb General: lying in bed in no acute distress Chest: CTAB, no rales or wheezing Abdomen:soft, obese, NT Extremities: no edema Patient witnessed walking in the hallway with no concerns Active Medications Acetaminophen (Tylenol -) 650 mg PO Q6H PRN PRN Reason: FEVER Last Admin: 05/09/18 18:27 Dose: 650 mg Chlordiazepoxide HCl (Librium -) 15 mg PO [id number] [facility] Stop: 05/10/18 23:01 Last Admin: 05/10/18 11:36 Dose: 15 mg Chlordiazepoxide HCl (Librium -) 10 mg PO [id number] [facility] Stop: 05/11/18 17:01 Folic Acid (Folic Acid -) 1 mg PO DAILY [facility] Last Admin: 05/10/18 09:43 Dose: Not Given Magnesium Oxide (Mag-Ox -) 800 mg PO DAILY [facility] Stop: 05/13/18 10:01 Last Admin: 05/10/18 09:44 Dose: Not Given Multivitamins/Minerals/Vitamin C (Tab-A-Vit -) 1 tab PO DAILY [facility] Last Admin: 05/10/18 09:43 Dose: Not Given Thiamine HCl (Vitamin B1 -) 100 mg PO DAILY [facility] Last Admin: 05/10/18 09:43 Dose: Not Given Laboratory Results - last 24 hr 05/10/18 05/10/18 05/10/18 06:00 06:00 06:00 WBC 6.3 RBC 3.70 L Hgb 9.2 L Hct 29.4 L MCV 79.5 L MCH 24.9 L MCHC 31.3 L RDW 21.4 H Plt Count 300 D MPV 7.4 L Absolute Neuts (auto) 4.1 Neutrophils % 66.3 D Lymphocytes % 22.7 D Monocytes % 5.8 Eosinophils % 4.4 Basophils % 0.8 Nucleated RBC % 0 PT with INR 13.00 INR 1.10 H Sodium 138 Potassium 3.2 L Chloride 103 Carbon Dioxide 27 Anion Gap 9 BUN 6 L Creatinine 0.5 L Creat Clearance w eGFR > 60 Random Glucose 80 Calcium 7.8 L Phosphorus 3.6 Magnesium 1.8 Total Bilirubin 0.8 AST 30 ALT 21 Alkaline Phosphatase 107 Total Protein 6.0 L Albumin 2.9 L ASSESSMENT AND PLAN: 63 yom with PMHx of alcohol abuse, admitted with alcohol intoxication/ withdrawal and hypokalemia/severe hypomagnesemia -Alcohol intoxication/withdrawal -Severe hypomagnesemia -Hypokalemia -Unwitnessed fall?? -Alcohol abuse/dependence -Gait instability Plan: Doing well. Replete K. Mg levels normalized. Detox protocol. Patient ambulated 150 feet with PT today with no concerns. No need for SNF. Discuss with social work, patient interested in detox but does not want to go to [facility]. Discuss with social. Dispo d/c today pending social input and detox arrangements. Plan discussed with patient, RN and social work in detail, all questions answered.
[2018-05-10] MEDS ORDERED: POTASSIUM CHLORIDE ORAL LIQUID 20 MEQ/15 ML PO ONE ×2 (12:23→16:00)
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
[2018-05-10] MEDS ORDERED: chlordiazePOXIDE HCL 25 MG CAPSULE PO SCH (17:00)
--- NOTE | 2018-05-10 19:38 | PN ---
Physical Exam: SUBJECTIVE: Patient seen and examined at bedside this am. Complaining of back pain. Does not want to go to [facility] but is interested in rehab. No acute events overnight. OBJECTIVE: Vital Signs Period Temp Pulse Resp BP Sys/Jang Pulse Ox Last 24 Hr 98.6 F-99.3 F 88-94 18-20 115-155/74-90 95-96 GENERAL: Awake Alert NAD HEAD: NC/AT EYES: EOMI, No scleral icterus Conjunctivae clear ENT: MMM NECK: Supple LUNGS: DEC BS at bases HEART: RRR No MRG S1S2 ABDOMEN:NDNT No HSM EXTREMITIES: No CCE NEUROLOGICAL: CN 2-12 intact PSYCH: Normal mood, normal affect. SKIN: No rashes or lesions appreciated Laboratory Results - last 24 hr 05/10/18 05/10/18 05/10/18 06:00 06:00 06:00 WBC 6.3 RBC 3.70 L Hgb 9.2 L Hct 29.4 L MCV 79.5 L MCH 24.9 L MCHC 31.3 L RDW 21.4 H Plt Count 300 D MPV 7.4 L Absolute Neuts (auto) 4.1 Neutrophils % 66.3 D Lymphocytes % 22.7 D Monocytes % 5.8 Eosinophils % 4.4 Basophils % 0.8 Nucleated RBC % 0 PT with INR 13.00 INR 1.10 H Sodium 138 Potassium 3.2 L Chloride 103 Carbon Dioxide 27 Anion Gap 9 BUN 6 L Creatinine 0.5 L Creat Clearance w eGFR > 60 Random Glucose 80 Calcium 7.8 L Phosphorus 3.6 Magnesium 1.8 Total Bilirubin 0.8 AST 30 ALT 21 Alkaline Phosphatase 107 Total Protein 6.0 L Albumin 2.9 L Active Medications Generic Name Dose Route Start Last Admin Trade Name Freq PRN Reason Stop Dose Admin Acetaminophen 650 mg 05/09/18 17:09 05/09/18 18:27 Tylenol - PO 650 mg Q6H PRN Administration FEVER Chlordiazepoxide HCl 15 mg 05/10/18 11:01 05/10/18 17:20 Librium - PO 05/10/18 23:01 15 mg [id number] CAREY Administration Chlordiazepoxide HCl 10 mg 05/11/18 05:01 Librium - PO 05/11/18 17:01 [id number] CAREY Folic Acid 1 mg 05/09/18 10:00 05/10/18 09:43 Folic Acid - PO Not Given DAILY [facility] Magnesium Oxide 800 mg 05/09/18 10:00 05/10/18 09:44 Mag-Ox - PO 05/13/18 10:01 Not Given DAILY [facility] Multivitamins/Minerals/Vitamin C 1 tab 05/09/18 10:00 05/10/18 09:43 Tab-A-Vit - PO Not Given DAILY [facility] Thiamine HCl 100 mg 05/09/18 10:00 05/10/18 09:43 Vitamin B1 - PO Not Given DAILY [facility] ASSESSMENT/PLAN: 63 yo M h/o EtOH dependence and frequent intoxication admitted to tele obs for alcohol intoxication. # EtOH intoxication: -FS to monitor glc; Folic acid, Thiamine, daily MV daily -Dr Samuel on board. Chlordiazepoxide taper, 15 mg today x 3 doses and 10 mg tomorrow x 3 doses. -Patient interested in detox but does not want to go to [facility]. # Electrolyte Abnormalities: encourage water intake. Received PO MgO 400mg and IV MgSO4 4mg - Magnesium Oxide 800 mg po daily - Follow up BMP in AM #FEN No Fluids Monitor Electrolytes Regular Diet #DVT ppx: SCDs #Dispo: Tentative Rehab tomorrow Visit type - Emergency Visit Emergency Visit: Yes ED Registration Date: 05/09/18 Care time: The patient presented to the Emergency Department on the above date and was hospitalized for further evaluation of their emergent condition. - New Patient This patient is new to me today: No - Critical Care Critical Care patient: No - Discharge Referral Referred to [facility] Med P.C.: No
[2018-05-11] MEDS: chlordiazePOXIDE 5 MG CAPSULE PO SCH ×2 (05:57→10:31)
[2018-05-11 08:51] LABS: ANION GAP 8 MMOL/L (8-16); BLOOD UREA NITROGEN 7 mg/dL (7-18); CALCIUM 8.2 mg/dL (8.5-10.1); CHLORIDE 104 mmol/L (98-107); CO2 26 mmol/L (21-32); CREATININE 0.5 mg/dL (0.55-1.3); GLUCOSE,RANDOM 82 mg/dL (74-106); MAGNESIUM 1.6 mg/dL (1.8-2.4); POTASSIUM 3.4 mmol/L (3.5-5.1); SODIUM 138 mmol/L (136-145)
[2018-05-11] MEDS: MAGNESIUM OXIDE 400 MG TABLET (FP) PO SCH (10:34)
[2018-05-11] MEDS: FOLIC ACID 1 MG TABLET (FP) PO SCH (10:34)
[2018-05-11] MEDS: MULTIVITAMINS (DAILY MVI) TABLET (FP) PO SCH (10:35)
[2018-05-11] MEDS: THIAMINE HCL 100 MG TABLET (FP) PO SCH (10:35)
[2018-05-11 10:59] VITALS: BP 145/92; PULSE 94; TEMP 98.6
--- NOTE | 2018-05-11 13:55 | DS ---
Physical Exam: SUBJECTIVE: Patient seen and examined at bedside earlier today. Compalinign of congestion. No acute events overnight. Pt has left AMA earlier this afternoon. OBJECTIVE: Vital Signs Period Temp Pulse Resp BP Sys/Jang Pulse Ox Last 24 Hr 98 F-99.3 F 90-98 16-20 145-155/90-98 96 PHYSICAL EXAM GENERAL: Awake Alert Oriented NAD HEAD: NC/AT. EYES: EOMI No scleral icterus Conjunctiva clear ENT: MMM NECK: Supple LUNGS: CTA B/L No rales rhonchi or wheezing HEART: RRR No MRG S1S2 ABDOMEN:Soft NDNT No HSM EXTREMITIES: No CCE NEUROLOGICAL: No neuro deficits appreciated PSYCH: Normal mood, normal affect. SKIN: No rashes or lesions appreciated LABS Laboratory Results - last 24 hr 05/11/18 08:06 Sodium 138 Potassium 3.4 L Chloride 104 Carbon Dioxide 26 Anion Gap 8 BUN 7 Creatinine 0.5 L Creat Clearance w eGFR > 60 Random Glucose 82 Calcium 8.2 L Magnesium 1.6 L HOSPITAL COURSE: Date of Admission:05/09/18 Pt is a 63 yo M h/o EtOH dependence and frequent intoxication admitted to [facility] for alcohol intoxication. Pt's magnesium and potassium were low (1.4 and 3.1 respectively). Magnesium and potassium PO were ordered. He accepted the magnesium but rejected the PO potassium on grounds that is upsets his stomach. Pt's blood alcohol in ED was 321.3. Pt was given copious amounts of I.V Potassium and Magnesium during his stay. Pt seen by Dr Samuel of addiction medicine. Was started on a chlordiazapoxide taper. Pt was unsatisfied with his medical care and left Against Medical Advice before finishing his taper. # EtOH intoxication: -FS to monitor glc; Folic acid, Thiamine, daily MV daily -Dr Samuel on board. Chlordiazepoxide taper, 15 mg today x 3 doses and 10 mg tomorrow x 3 doses. -Patient interested in detox but does not want to go to [facility]. # Electrolyte Abnormalities: encourage water intake. Received PO MgO 400mg and IV MgSO4 4mg - Magnesium Oxide 800 mg po daily - Follow up BMP in AM #FEN No Fluids Monitor Electrolytes Regular Diet #DVT ppx: SCDs #Dispo: Tentative Rehab tomorrow Date of Discharge: 05/11/18 Minutes to complete discharge: 35 Discharge Summary Reason For Visit: HYPOMAGNESEMIA/ALCOHOL DEP Condition: Guarded - Instructions Disposition: AGAINST MEDICAL ADVICE - Home Medications Comprehensive Discharge Medication List: Ambulatory Orders Amlodipine Besylate 5 mg PO DAILY 05/10/18 Famotidine 20 mg PO BID 05/10/18 Magnesium Oxide 400 mg PO TID 05/10/18 This patient is new to me today: No Emergency Visit: Yes ED Registration Date: 05/09/18 Care time: The patient presented to the Emergency Department on the above date and was hospitalized for further evaluation of their emergent condition. Critical Care patient: No - Discharge Referral Referred to [facility] Med P.C.: No
--- NOTE | 2018-05-11 16:05 | PN ---
Teaching Attending Note Name of Resident: James Bridges ATTENDING PHYSICIAN STATEMENT I saw and evaluated the patient. I reviewed the resident's note and discussed the case with the resident. I agree with the resident's findings and plan as documented. SUBJECTIVE:asymptomatic. denies CP, SOB, fever, chills, N/V/C/D, GARCIA, blurred vision, auditory/visual hallucinations OBJECTIVE: Last Vital Signs Temp Pulse Resp BP Pulse Ox 98.6 F 94 H 18 145/92 96 05/11/18 09:00 05/11/18 09:00 05/11/18 09:00 05/11/18 09:00 05/10/18 17:00 General NAD CV S1 S2 RRR no murmur/rub/gallop Lungs CTA B/L no wheezing/rales/rhonchi extremities no tremors ASSESSMENT AND PLAN: 63yo M with PMH Continuous ETOH dependence presented to the ER in active withdrawals 1. Acute ETOH withdrawal- CIWA 0. on librium taper. pt refuses to go to [facility] for detox. on thiamine/folate/MVI., interested in only going to specific facilities for rehab. will complete detox today and plan to either go to rehab center vs nursing home 2. Hypokalemia-awaiting todays labs 3. hypomagnesmeia- resolved 4. d/c today once completes librium taper. PT latonya
[2018-05-11] MEDS ORDERED: chlordiazePOXIDE 5 MG CAPSULE PO SCH (17:00)
[2018-05-12] MEDS ORDERED: chlordiazePOXIDE 5 MG CAPSULE PO SCH (17:00)
== END 2018-05-11 12:09 | disposition left against medical advice (07) | DRG 770 ==
LOC: JER 20:54 → JERBED 05-08 09:27 → J4S 05-08 14:55 → OBSVTOIN 05-09 12:57
PROVIDERS: ADMIT Hospitalist; ATTEND Internal Medicine
PROC: HZ2ZZZZ Detoxification Services for Substance Abuse Treatment (ICD-10-PCS; principal; 2018-05-07)
DX: F10.239 Alcohol dependence with withdrawal, unspecified (principal); I10 Essential (primary) hypertension; Z59.0 Homelessness; E66.9 Obesity, unspecified; Z68.35 Body mass index [BMI] 35.0-35.9, adult; E83.42 Hypomagnesemia; E87.0 Hyperosmolality and hypernatremia; C45.9 Mesothelioma, unspecified; Z91.14 Patient's other noncompliance with medication regimen; M54.5 Low back pain; I45.81 Long QT syndrome; E87.6 Hypokalemia; R26.81 Unsteadiness on feet; F10.229 Alcohol dependence with intoxication, unspecified; Y90.8 Blood alcohol level of 240 mg/100 ml or more
CPT/HCPCS: 36415; 70450-TC; 71046-TC-FY; 72125-TC; 80048; 80053; 80307; 82550; 82553; 83735; 83880; 84100; 84484; 85025; 85027; 85610; 93005; 93010; 97116-GP; 97162-GP; 99283-25; G0378; J7030

== ENCOUNTER 2018-05-11 19:07 | Emergency (ER) | payer OTHER ==
--- NOTE | 2018-05-11 19:54 | PDOC ---
History of Present Illness - General Stated Complaint: Alcohol intoxication Time Seen by Provider: 05/11/18 19:54 History Source: Patient - History of Present Illness Initial Comments: 05/11/18 19:57 63 year old male Pt is a 63 yo M h/o EtOH dependence and frequent intoxication d /urmila from hospital today for hypomagnesium and hypopotassium BIBA for alcohol intoxication. patient reports drinking a pint of Lloyd. no evidence of head injury. alcohol on breath with slurred speech Past History - Past Medical History Allergies/Adverse Reactions: Allergies Allergy/AdvReac Type Severity Reaction Status Date / Time Fish Containing Products Allergy Mild Swelling Verified 05/11/18 20:22 No Known Drug Allergies Allergy Verified 05/11/18 20:22 Home Medications: Ambulatory Orders Amlodipine Besylate 5 mg PO DAILY 05/10/18 Famotidine 20 mg PO BID 05/10/18 Magnesium Oxide 400 mg PO TID 05/10/18 Anemia: No Asthma: No Cancer: Yes (mesothelioma) Cardiac Disorders: No CVA: No COPD: No CHF: No DVT: No Dementia: No Diabetes: No GI Disorders: No Disorders: No HTN: Yes (non compliance) Hypercholesterolemia: No Kidney Stones: No Liver Disease: No Psychiatric Problems: Yes (alcoholism) Seizures: No Thyroid Disease: No - Surgical History Abdominal Surgery: No Appendectomy: No Cardiac Surgery: No Cholecystectomy: No Lung Surgery: No Neurologic Surgery: No Orthopedic Surgery: No - Family Disease History Family Disease History: CA: Mother - Reproductive History Testicular Surgery: No - Immunization History TDAP Vaccination: Yes Immunization Up to Date: Yes - Suicide/Smoking/Psychosocial Hx Smoking Status: No Smoking History: Never smoked Have you smoked in the past 12 months: No Number of Cigarettes Smoked Daily: 5 If you are a former smoker, when did you quit?: 0 Cigars Per Day: 0 'Breaking Loose' booklet given: 09/22/17 Hx Alcohol Use: Yes Drug/Substance Use Hx: No Substance Use Type: Alcohol Hx Substance Use Treatment: Yes ([facility] 02/08/18to 02/12/18) Review of Systems - Review of Systems Able to Perform ROS?: Yes Is the patient limited Ethiopian proficient: No Constitutional: No: Symptoms Reported, See HPI, Chills, Diaphoresis, Fever, Loss of Appetite, Malaise, Night Sweats, Weakness, Weight Stable, Unintentional Wgt. Loss, Unexplained wgt Loss, Other Psychiatric: Yes: Other (intoxication) *Physical Exam - Vital Signs 05/11/18 20:33 Last Vital Signs Temp Pulse Resp BP Pulse Ox 96.8 F L 85 18 142/79 97 05/11/18 19:07 05/11/18 19:07 05/11/18 19:07 05/11/18 19:07 05/11/18 19:07 - Physical Exam General Appearance: Yes: Appropriately Dressed, Disheveled, Alcohol on Breath, Intoxicated HEENT: positive: Other (normocephalic. no evidence of trauma) Neurologic: positive: Other (slurred speech) Medical Decision Making - Medical Decision Making 05/11/18 20:34 A: alcohol intoxication P: 05/12/18 06:52 patient alert v/s stablw will d/c home *DC/Admit/Observation/Transfer Diagnosis at time of Disposition: Alcohol intoxication, Alcohol abuse, Alcohol abuse - Discharge Dispostion Condition at time of disposition: Fair - Referrals - Patient Instructions Printed Discharge Instructions: DI for Alcohol Abuse Additional Instructions: refrain from drinking alcohol. - Post Discharge Activity
[2018-05-11 20:22] VITALS: BMI 35.9
--- NOTE | 2018-05-11 22:59 | PDOC ---
*Physical Exam - Vital Signs Last Vital Signs Temp Pulse Resp BP Pulse Ox 96.8 F L 85 18 142/79 97 05/11/18 19:07 05/11/18 19:07 05/11/18 19:07 05/11/18 19:07 05/11/18 19:07 - Physical Exam General Appearance: Yes: Nourished Respiratory/Chest: positive: Lungs Clear, Normal Breath Sounds Cardiovascular: positive: Regular Rhythm, Regular Rate, S1, S2 Gastrointestinal/Abdominal: negative: Tender Extremity: positive: Normal Inspection, Delayed Capillary Refill Neurologic: positive: Fully Oriented, Alert, Other (intoxicated. unsteady gait) Medical Decision Making - Medical Decision Making 05/11/18 22:57 63 yo male with h/o etoh abuse, mult med problesm well known to department and myself. here today c/o intoxication. pt has no other complaints. isunable to ambulate due to severe intoxication. on exam awake, alert slurred speech. lungs clear heart rrr no mrg. abd obese, soft nt. nuero slurred speech, intox unsteady gait moves all ext. plan await and reassess when sober. pt seen and examined with Pa agree with her assessment and plan. *DC/Admit/Observation/Transfer Diagnosis at time of Disposition: Alcohol intoxication - Discharge Dispostion Condition at time of disposition: Fair - Referrals - Patient Instructions - Post Discharge Activity
[2018-05-12 06:42] VITALS: BP 133/74; PULSE 84; TEMP 99.2
== END 2018-05-12 07:04 | disposition home or self-care (01) ==
LOC: JER 19:07
DX: F10.220 Alcohol dependence with intoxication, uncomplicated (principal); I10 Essential (primary) hypertension; Z91.14 Patient's other noncompliance with medication regimen; Z59.0 Homelessness
CPT/HCPCS: 99282-25

== ENCOUNTER 2018-05-31 20:57 | Inpatient (IN) | payer OTHER ==
[2018-05-31 21:30] VITALS: BMI 35.9
--- NOTE | 2018-05-31 21:37 | PDOC ---
History of Present Illness - General Chief Complaint: Chronic pain Stated Complaint: PAIN Time Seen by Provider: 05/31/18 21:33 History Source: Patient - History of Present Illness Initial Comments: 05/31/18 21:41 63 year old male undomiciled male ETOH abuse BIBA s/p fall hit head with abrasion to forehead patient is c/o right upper arm pain radiating to right elbow. patient reports that he doesnt recall what happened. denies NVD, abdominal painm, fever/ chills. Past History - Past Medical History Allergies/Adverse Reactions: Allergies Allergy/AdvReac Type Severity Reaction Status Date / Time Fish Containing Products Allergy Mild Swelling Verified 06/10/18 17:05 No Known Drug Allergies Allergy Verified 06/10/18 17:05 Home Medications: Ambulatory Orders Acetaminophen [Tylenol .Regular Strength -] 650 mg PO Q6H PRN tablet 06/04/18 Amlodipine Besylate [Norvasc -] 5 mg PO DAILY tablet 06/04/18 Ferrous Sulfate [Feosol] 325 mg PO BID ud 06/04/18 Folic Acid - 1 mg PO DAILY tablet 06/04/18 Heparin - 5,000 unit SQ TID vial 06/04/18 Pantoprazole Sodium [Protonix -] 40 mg PO DAILY tablet.ec 06/04/18 Thiamine HCl [Vitamin B1 -] 100 mg PO DAILY tablet 06/04/18 Anemia: No Asthma: No Cancer: Yes (mesothelioma) Cardiac Disorders: No CVA: No COPD: No CHF: No DVT: No Dementia: No Diabetes: No GI Disorders: No Disorders: No HTN: Yes (non compliance) Hypercholesterolemia: No Kidney Stones: No Liver Disease: No Psychiatric Problems: Yes (alcoholism) Seizures: No Thyroid Disease: No - Surgical History Abdominal Surgery: No Appendectomy: No Cardiac Surgery: No Cholecystectomy: No Lung Surgery: No Neurologic Surgery: No Orthopedic Surgery: No - Family Disease History Family Disease History: CA: Mother - Reproductive History Testicular Surgery: No - Immunization History TDAP Vaccination: Yes Immunization Up to Date: Yes - Suicide/Smoking/Psychosocial Hx Smoking Status: No Smoking History: Never smoked Have you smoked in the past 12 months: No Number of Cigarettes Smoked Daily: 5 If you are a former smoker, when did you quit?: 0 Cigars Per Day: 0 Information on smoking cessation initiated: No 'Breaking Loose' booklet given: 09/22/17 Hx Alcohol Use: Yes Drug/Substance Use Hx: No Substance Use Type: Alcohol Hx Substance Use Treatment: Yes ([facility] 02/08/18to 02/12/18) *Physical Exam - Vital Signs Last Vital Signs Temp Pulse Resp BP Pulse Ox 97.5 F L 88 20 141/66 96 05/31/18 21:08 05/31/18 21:08 05/31/18 21:08 05/31/18 21:08 05/31/18 21:08 - Physical Exam General Appearance: Yes: Disheveled, Alcohol on Breath HEENT: positive: Other (abrasion to forehead) Cardiovascular: positive: Regular Rhythm, Regular Rate Gastrointestinal/Abdominal: positive: Normal Bowel Sounds, Soft Extremity: positive: Other (limited ROM to right arm and shoulder, ) Integumentary: positive: Normal Color, Dry, Warm Neurologic: positive: Fully Oriented, Alert Moderate Sedation - Procedure Monitoring Vital Signs: Procedure Monitoring Vital Signs Temperature 97.5 F L 05/31/18 21:08 Pulse Rate 88 05/31/18 21:08 Respiratory Rate 20 05/31/18 21:08 Blood Pressure 141/66 05/31/18 21:08 O2 Sat by Pulse Oximetry (%) 96 05/31/18 21:08 ED Treatment Course - LABORATORY CBC & Chemistry Diagram: 06/04/18 06:00 06/04/18 06:00 Medical Decision Making - Medical Decision Making head injury: Alcohol intoxication P: CT head/ neck shoulder/ forearm/ elbow wrist xray 05/31/18 23:[address] Yusuf. patient to be evaluated by orthopedic. will place in observation. arm placed in sling avulsion fracture of humerus. patient signed pout to hospitalist team *DC/Admit/Observation/Transfer Diagnosis at time of Disposition: Alcohol intoxication, Homelessness Closed right humeral fracture Qualifiers: Encounter type: initial encounter Humerus Location: proximal Fracture morphology: other fracture Fracture alignment: displaced Qualified Code(s): S42.291A - Other displaced fracture of upper end of right humerus, initial encounter for closed fracture Head injury Qualifiers: Encounter type: initial encounter Qualified Code(s): S09.90XA - Unspecified injury of head, initial encounter - Discharge Dispostion Disposition: HOME Condition at time of disposition: Stable - Referrals - Patient Instructions - Post Discharge Activity
[2018-05-31] MEDS ORDERED: ACETAMINOPHEN 325 MG TABLET (FP) PO ONE (21:39)
[2018-05-31] MEDS ORDERED: ACETAMINOPHEN 325 MG TABLET (FP) ONE (21:53)
--- NOTE | 2018-05-31 22:03 | PDOC ---
*Physical Exam - Vital Signs Last Vital Signs Temp Pulse Resp BP Pulse Ox 97.5 F L 88 20 141/66 96 05/31/18 21:08 05/31/18 21:08 05/31/18 21:08 05/31/18 21:08 05/31/18 21:08 ED Treatment Course - LABORATORY CBC & Chemistry Diagram: 06/01/18 00:50 06/01/18 00:50 - RADIOLOGY Radiology Studies Ordered: Category Date Time Status CHEST - PA [RAD] Stat Radiology 05/31/18 21:50 Ordered Medical Decision Making - Medical Decision Making 05/31/18 21:59 63 yo male p/w rt shoulder and humerus pain s/p fall/ He is intoxicated and disheveled. He also has forehead trauma plan : ct scan head, xrays of cxr,rt arm 06/01/18 02:16 radiographs show avulsive fracture of humerus 06/01/18 02:16 pt to be OBS admission I agree with HYDRAULIC JACK ADJUSTER's assessment and management of this case *DC/Admit/Observation/Transfer Diagnosis at time of Disposition: Alcohol intoxication, Homelessness Closed right humeral fracture Qualifiers: Encounter type: initial encounter Humerus Location: proximal Fracture morphology: other fracture Fracture alignment: displaced Qualified Code(s): S42.291A - Other displaced fracture of upper end of right humerus, initial encounter for closed fracture Head injury Qualifiers: Encounter type: initial encounter Qualified Code(s): S09.90XA - Unspecified injury of head, initial encounter - Discharge Dispostion Condition at time of disposition: Fair - Referrals - Patient Instructions - Post Discharge Activity
[2018-05-31] MEDS ORDERED: FOLIC ACID INJECTION - 1 MG, THIAMINE HCL 100 MG, MULTIVIT INJECTION ADULT 10 ML in SOD... IVPB ONE (23:50)
[2018-06-01 01:15] LABS: INR 0.98 (0.83-1.09); PROTHROMBIN TIME (PATIENT) 11.6 SEC (9.7-13.0)
[2018-06-01 01:17] LABS: ACTIVATED PTT 19.2 SECONDS (25.2-36.5)
[2018-06-01 01:28] LABS: ALBUMIN 3.4 g/dl (3.4-5.0); ALK PHOS 110 U/L (45-117); ANION GAP 9 MMOL/L (8-16); BILIRUBIN,TOTAL 0.3 mg/dL (0.2-1); BLOOD UREA NITROGEN 6 mg/dL (7-18); CALCIUM 8.6 mg/dL (8.5-10.1); CHLORIDE 103 mmol/L (98-107); CO2 28 mmol/L (21-32); CREATININE 0.5 mg/dL (0.55-1.3); GLUCOSE,RANDOM 88 mg/dL (74-106); POTASSIUM 3.5 mmol/L (3.5-5.1); SGOT/AST 33 U/L (15-37); SGPT/ALT 25 U/L (13-61); SODIUM 141 mmol/L (136-145)
[2018-06-01 02:17] LABS: BASO % 0.5 % (0-2.0); EOS % 2.1 % (0-4.5); HEMATOCRIT 29.1 % (35.4-49); HEMOGLOBIN 9.6 GM/dL (11.7-16.9); LYMPH % 14.5 % (8-40); MCH 25.8 pg (25.7-33.7); MCHC 32.9 g/dl (32.0-35.9); MEAN CELL VOLUME 78.4 fl (80-96); MEAN PLT VOLUME 7.5 fl (7.5-11.1); NEUT % 76.9 % (42.8-82.8); PLATELET COUNT 294 K/MM3 (134-434); RBC 3.71 M/mm3 (4.00-5.60); RDW 22.5 % (11.9-15.9); WHITE BLOOD COUNT 9.7 K/mm3 (4.0-10.0)
--- NOTE | 2018-06-01 02:48 | PN ---
Teaching Attending Note Name of Resident: Alexander Conteh ATTENDING PHYSICIAN STATEMENT I saw and evaluated the patient. I reviewed the resident's note and discussed the case with the resident. I agree with the resident's findings and plan as documented. SUBJECTIVE: Patient is a 63 year old homeless man with history of hypertension, mesothelioma , ETOH abuse and multiple ER visits for alcohol intoxication presents to the ER after a fall. Patient hit his head and sustained an abrasion to forehead and is also complaining of right upper arm pain radiating to right elbow. Patient reports that he doesn't recall what happened. Denies NVD, abdominal pain, fever or chills. OBJECTIVE: Somnolent but arousable Vital Signs Period Temp Pulse Resp BP Sys/Jang Pulse Ox Last 24 Hr 97.5 F 88 20 141/66 96 HEENT: No Jaundice, eye redness or discharge, PERRLA, EOMI. Normocephalic, abrasion on right fore head. External ears are normal: No nasal discharge. Neck: Supple, nontender. No palpable adenopathy or thyromegaly. No JVD Chest: Good effort. Clear to auscultation and percussion. Heart: Regular. No S3, rub or murmur Abdomen: Not distended, soft, nontender and no HSM. No rebound or guarding. Normoactive bowel sounds. Ext: Peripheral pulses intact. No leg edema. Right arm in a sling with reduced ROM of arm and shoulder. Tender right shoulder. Skin: Warm and dry. No petechiae, rash or ecchymosis. Neuro: Somnolent but arousable. Moves all limbs. No asterexis or tremors. Gait cannot be tested for safety reasons. Current Medications Generic Name Dose Route Start Last Admin Trade Name Freq PRN Reason Stop Dose Admin Folic Acid 1 mg/ Thiamine HCl 1,000 mls @ 125 mls/hr 05/31/18 23:50 06/01/18 01:29 100 mg/ Multivitamins/Minerals IVPB 06/01/18 07:49 125 mls/hr 10 ml/ Sodium Chloride ONCE ONE Administration Home Medications Medication Instructions Recorded Amlodipine Besylate 5 mg PO DAILY 05/10/18 Famotidine 20 mg PO BID 05/10/18 Magnesium Oxide 400 mg PO TID 05/10/18 Abnormal Lab Results 12/06/01/18 06/01/18 00:50 00:50 01:57 RBC 3.71 L Hgb 9.6 L Hct 29.1 L MCV 78.4 L RDW 22.5 H PTT (Actin FS) 19.2 L BUN 6 L Creatinine 0.5 L Alcohol, Quantitative 06/01/18 01:57 RBC Hgb Hct MCV RDW PTT (Actin FS) BUN Creatinine Alcohol, Quantitative 180.1 H ASSESSMENT AND PLAN: 1. Alcohol intoxication, Fall and Right Humerus Fracture - Fall likely due to alcohol intoxication. No acute pathology head Head CT scan. Right humerus fracture - arm in a sling awaiting Ortho evaluation. If AMS persists, may repeat head CT scan tomorrow. Provide wound care for head abrasion. Will consult long term care social worker to assist with [facility] and structured outpatient setup. 2. Low MCV Anemia - Likely partly due o alcoholism. Do basic anemia work up including serial stool guaiacs, reticulocyte count and iron studies. Would benefit from outpatient colonoscopy. 3. Obesity - Will provide patient all the necessary assistance, counseling and positive reinforcement to facilitate weight loss. Consult packing and wrapping supervisor. 4. Alcohol abuse - Implement [facility] alcohol withdrawal protocol, fall and aspiration precautions. Treat with thiamine and folic acid and monitor electrolytes (Ca,Mg,K,P). Egg Processing Supervisor patient about abstaining from alcohol and refer to alcohol detox upon discharge. 5. DVT prophylaxis - Lovenox 40 mg SQ q 24 hours. 6. Advance directives - Full code
[2018-06-01] MEDS ORDERED: morphine SULFATE 4 MG/ML VIAL IVPUSH PRN (03:26)
[2018-06-01] MEDS ORDERED: D5-1/2NS+20 MEQ KCL - 20 MEQ/1,000 ML INFUS.BAG IV SCH (03:30)
[2018-06-01] MEDS ORDERED: ACETAMINOPHEN 1000 MG/100 ML VIAL (NON FORMULARY) IVPB PRN (03:32)
[2018-06-01 05:21] LABS: HEMATOCRIT 29.3 % (35.4-49); HEMOGLOBIN 8.9 GM/dL (11.7-16.9); MCH 24.2 pg (25.7-33.7); MCHC 30.4 g/dl (32.0-35.9); MEAN CELL VOLUME 79.5 fl (80-96); RBC 3.69 M/mm3 (4.00-5.60); WHITE BLOOD COUNT 7.5 K/mm3 (4.0-10.0)
[2018-06-01 05:22] LABS: MEAN PLT VOLUME 7.3 fl (7.5-11.1); PLATELET COUNT 258 K/MM3 (134-434); RDW 22.2 % (11.9-15.9)
[2018-06-01 05:30] LABS: ANISOCYTOSIS 2+
[2018-06-01 05:31] LABS: PLATELET ESTIMATE ADEQUATE
--- NOTE | 2018-06-01 05:31 | HP ---
CHIEF COMPLAINT:EtOH intoxication S/P fall PCP: HISTORY OF PRESENT ILLNESS: Pt intoxicated. Hx limited and mostly obtained from EMR. 63 yo M with a PMHx of HTN, mesothelioma, Alcohol abuse with multiple ED visits for EtOH intoxication who presented to the ED once again for EtOH intoxication and fall. pt was BIBA s/p fall hit head with abrasion to forehead. Pt is c/o right upper arm pain radiating to right elbow. patient reports that he doesn't recall what happened. denies n/v/d, abdominal pain, cp, SOB, fever/chills. ER course was notable for: (1)banana bag, CT head, R shoulder, humerus, elbow , forearm XR (2) (3) Recent Travel: Denies PAST MEDICAL HISTORY: Alcohol abuse PAST SURGICAL HISTORY: Denies Social History: Smoking: Alcohol:Alcohol daily Drugs: Family History: Allergies Fish Containing Products Allergy (Mild, Verified 05/31/18 21:29) Swelling No Known Drug Allergies Allergy (Verified 05/31/18 21:29) HOME MEDICATIONS: Home Medications Medication Instructions Recorded Amlodipine Besylate 5 mg PO DAILY 05/10/18 Famotidine 20 mg PO BID 05/10/18 Magnesium Oxide 400 mg PO TID 05/10/18 REVIEW OF SYSTEMS as per HPI PHYSICAL EXAMINATION Vital Signs - 24 hr 05/31/18 21:08 Temperature 97.5 F L Pulse Rate 88 Respiratory 20 Rate Blood Pressure 141/66 O2 Sat by Pulse 96 Oximetry (%) GENERAL: intoxicated, disheveled, drowsy, aggressive and uncooperative at times HEAD: abrasion on right fore head EYES: sclera anicteric, conjunctiva clear. No lid lag. EARS, NOSE, THROAT: MMM NECK: Normal range of motion, supple without lymphadenopathy, JVD, or masses. LUNGS: CTAB HEART: RRR, normal S1 and S2 without murmur, rub or gallop. ABDOMEN: Soft, obese, NTND, normoactive bowel sounds, no guarding, no rebound, no masses. MUSCULOSKELETAL: Normal range of motion at all joints. No bony deformities or tenderness. UPPER EXTREMITIES: No peripheral edema. Right arm in a sling with reduced ROM of arm and shoulder. Tender right shoulder. LOWER EXTREMITIES: . No peripheral edema. NEUROLOGICAL: Somnolent but arousable. Moves all limbs. No asterexis or tremors. appears to have intact strength and sensation b/l Laboratory Results - last 24 hr 06/01/18 06/01/18 06/01/18 00:50 00:50 00:50 WBC Cancelled Corrected WBC (auto) Cancelled RBC Cancelled Hgb Cancelled Hct Cancelled MCV Cancelled MCH Cancelled MCHC Cancelled RDW Cancelled Plt Count Cancelled MPV Cancelled Absolute Neuts (auto) Cancelled Absolute Lymphs (auto) Cancelled Absolute Monos (auto) Cancelled Absolute Eos (auto) Cancelled Absolute Basos (auto) Cancelled Add Manual Diff Cancelled Neutrophils % Cancelled Lymphocytes % Cancelled Monocytes % Cancelled Eosinophils % Cancelled Basophils % Cancelled Nucleated RBC % Cancelled Hypersegmented Neuts Cancelled Hypochromia Cancelled Toxic Granulation Cancelled Dohle Bodies Cancelled [place] Rods Cancelled Platelet Estimate Cancelled Platelet Comment Cancelled Normal RBC Morphology Cancelled Polychromasia Cancelled Poikilocytosis Cancelled Basophilic Stippling Cancelled Anisocytosis Cancelled Microcytosis Cancelled Macrocytosis Cancelled Spherocytes Cancelled Siderocytes Cancelled Sickle Cells Cancelled Target Cells Cancelled Tear Drop Cells Cancelled Ovalocytes Cancelled Stomatocytes Cancelled Helmet Cells Cancelled [place] Bodies Cancelled [place] Rings Cancelled [place] Cells Cancelled Acanthocytes (Spur) Cancelled Rouleaux Cancelled Fragmented RBCs Cancelled Schistocytes Cancelled Morphology Comment Cancelled PT with INR 11.60 INR 0.98 PTT (Actin FS) 19.2 L Sodium 141 Potassium 3.5 Chloride 103 Carbon Dioxide 28 Anion Gap 9 BUN 6 L Creatinine 0.5 L Creat Clearance w eGFR > 60 Random Glucose 88 Calcium 8.6 Total Bilirubin 0.3 AST 33 ALT 25 Alkaline Phosphatase 110 Troponin I < 0.02 Total Protein 7.0 Albumin 3.4 Alcohol, Quantitative Blood Type Antibody Screen 06/01/18 06/01/18 06/01/18 00:50 01:57 01:57 WBC 9.7 Corrected WBC (auto) RBC 3.71 L Hgb 9.6 L Hct 29.1 L MCV 78.4 L MCH 25.8 MCHC 32.9 RDW 22.5 H Plt Count 294 MPV 7.5 Absolute Neuts (auto) 7.5 Absolute Lymphs (auto) Absolute Monos (auto) Absolute Eos (auto) Absolute Basos (auto) Add Manual Diff Neutrophils % 76.9 Lymphocytes % 14.5 D Monocytes % 6.0 Eosinophils % 2.1 Basophils % 0.5 Nucleated RBC % 0 Hypersegmented Neuts Hypochromia Toxic Granulation Dohle Bodies [place]uv[place] Rods Platelet Estimate Platelet Comment Normal RBC Morphology Polychromasia Poikilocytosis Basophilic Stippling Anisocytosis Microcytosis Macrocytosis Spherocytes Siderocytes Sickle Cells Target Cells Tear Drop Cells Ovalocytes Stomatocytes Helmet Cells [place] Bodies [place] Rings Karen Cells Acanthocytes (Spur) Rouleaux Fragmented RBCs Schistocytes Morphology Comment PT with INR INR PTT (Actin FS) Sodium Potassium Chloride Carbon Dioxide Anion Gap BUN Creatinine Creat Clearance w eGFR Random Glucose Calcium Total Bilirubin AST ALT Alkaline Phosphatase Troponin I Total Protein Albumin Alcohol, Quantitative 180.1 H Blood Type O POSITIVE Antibody Screen Negative 06/01/18 05:01 WBC 7.5 Corrected WBC (auto) RBC 3.69 L Hgb 8.9 L Hct 29.3 L MCV 79.5 L MCH 24.2 L MCHC 30.4 L RDW 22.2 H Plt Count 258 MPV 7.3 L Absolute Neuts (auto) Absolute Lymphs (auto) Absolute Monos (auto) Absolute Eos (auto) Absolute Basos (auto) Add Manual Diff Neutrophils % Lymphocytes % Monocytes % Eosinophils % Basophils % Nucleated RBC % Hypersegmented Neuts Hypochromia Toxic Granulation Dohle Bodies [place] Rods Platelet Estimate Platelet Comment Normal RBC Morphology Polychromasia Poikilocytosis Basophilic Stippling Anisocytosis Microcytosis Macrocytosis Spherocytes Siderocytes Sickle Cells Target Cells Tear Drop Cells Ovalocytes Stomatocytes Helmet Cells [place] Bodies [place] Rings [place] Cells Acanthocytes (Spur) Rouleaux Fragmented RBCs Schistocytes Morphology Comment PT with INR INR PTT (Actin FS) Sodium Potassium Chloride Carbon Dioxide Anion Gap BUN Creatinine Creat Clearance w eGFR Random Glucose Calcium Total Bilirubin AST ALT Alkaline Phosphatase Troponin I Total Protein Albumin Alcohol, Quantitative Blood Type Antibody Screen ASSESSMENT/PLAN: 63 yo M with a PMHx of HTN, mesothelioma, Alcohol abuse with multiple ED visits for EtOH intoxication p/w EtOH intoxication and fall to head and RUE. Now w/ R humeral frx Fall and Right Humerus Fracture - Fall 2/2 alcohol intoxication. -Head CT scan - No acute pathology -RUE XR shows Right humerus fracture -arm in a sling awaiting -pain ctl - morphine Tylenol Ortho consult If AMS persists, may repeat head CT scan tomorrow. wound care for head abrasion. EtOH Abuse -s/p banana bag in ED -monitor for any signs of withdrawals, patient currently intoxicated . unclear when last drink -consider giving ativan IV prn or start librium alcohol withdrawal protocol fall and aspiration precautions monitor lytes (Ca,Mg,K,P) microcytic anemia - possibly 2/2 iron def and c/b etoh. baseline H/H appears to be around 10 basic anemia work: FOBT, reticulocyte count and iron studies Mesothelioma Follow up as outpt HTN pt started on amlodipine at last discharge from hospital c/w amlodipine Obesity - BMI 35.9 encourage weight loss Prophylaxis -SCDs, will hold off on AC as pt is fall risk. can start Lovenox 40 mg SQ qd when pt more stable on feet -No GI prophylaxis required F/E/N -IV NS @125mls/hr -Replete prn -Na ctl diet Disposition -Full code -Observation -ortho eval Visit type - Emergency Visit Emergency Visit: Yes ED Registration Date: 06/01/18 Care time: The patient presented to the Emergency Department on the above date and was hospitalized for further evaluation of their emergent condition. - New Patient This patient is new to me today: Yes Date on this admission: 06/01/18 - Critical Care Critical Care patient: No
[2018-06-01 05:56] LABS: ALK PHOS 97 U/L (45-117); ANION GAP 9 MMOL/L (8-16); BILIRUBIN,TOTAL 0.4 mg/dL (0.2-1); BLOOD UREA NITROGEN 6 mg/dL (7-18); CALCIUM 7.9 mg/dL (8.5-10.1); CHLORIDE 106 mmol/L (98-107); CO2 26 mmol/L (21-32); CREATININE 0.4 mg/dL (0.55-1.3); GLUCOSE,RANDOM 88 mg/dL (74-106); MAGNESIUM 1.5 mg/dL (1.8-2.4); PHOSPHOROUS 3.6 mg/dL (2.5-4.9); POTASSIUM 3.2 mmol/L (3.5-5.1); SGOT/AST 30 U/L (15-37); SGPT/ALT 21 U/L (13-61); SODIUM 140 mmol/L (136-145); TOT PROT 6.2 g/dl (6.4-8.2)
[2018-06-01] MEDS: SODIUM CHLORIDE 1,000 ML IV SCH ×3 (09:34→22:07)
[2018-06-01] MEDS: POTASSIUM CHLORIDE TABS 20 MEQ TABLET.ER (FP) PO ONE ×2 (09:37→09:48)
[2018-06-01] MEDS: MAGNESIUM OXIDE 400 MG TABLET (FP) PO ONE ×2 (09:38→09:49)
[2018-06-01] MEDS: amLODIPine BESYLATE 5 MG TABLET (FP) PO SCH ×2 (09:38→09:49)
[2018-06-01 09:41] LABS: MAGNESIUM 1.8 mg/dL (1.8-2.4); PHOSPHOROUS 3.6 mg/dL (2.5-4.9)
[2018-06-01 10:13] LABS: RETICULOCYTES 1.41 % (0.5-1.5)
[2018-06-01] MEDS ORDERED: chlordiazePOXIDE HCL 25 MG CAPSULE PO PRN ×2 (10:20→13:44)
[2018-06-01] MEDS ORDERED: PROCHLORPERAZINE MALEATE 5 MG TABLET PO PRN (10:33)
--- NOTE | 2018-06-01 13:32 | PN ---
Teaching Attending Note Name of Resident: Rosa M Vizcaino ATTENDING PHYSICIAN STATEMENT I saw and evaluated the patient. I reviewed the resident's note and discussed the case with the resident. I agree with the resident's findings and plan as documented. SUBJECTIVE: No fever or chills . has no CP or SOB. no GARCIA , or visual changes. has pain in neck and R upper arm OBJECTIVE: NAD, awake, alert, cooperative. no nystagmus Cv: RRR, no MRG Lungs: CTAB Abd: soft, NT, ND, NL BS . Ext: no edema on LE. RUE with upper am edema , and tenderness. radial pulse2+ b /l . DP 2+ b/l . ASSESSMENT AND PLAN: 63 y/o man with h/o Alcoholism, and untreated HTN, who presented intoxicated after a fall and was found to have RUE Fx. 1- Avulsion Fx of greater tuberosity: - ortho consult pending - cont pain control 2- Alcohol intoxication: no signs of Wernicke's encephalopathy. No signs of withdrawal yet but expect him to go into withdrawal - received thiamin IV in ER - cont with po thiamine and oflate - start Librium PRN for any withdrawal signs 3- Microcytic anemia: - check iron studies - B12, folate 4- H/o untreated HTN: Bp is nl now .monitor . 5- electrolyte abnormalities : replete Mg and K dispo : HLOC
--- NOTE | 2018-06-01 13:49 | PN ---
Physical Exam: SUBJECTIVE: Patient seen and examined at bedside this morning. As per nursing, patient had been sleeping all night. This morning, patient was awake, but refuses to cooperate. He reports arm and shoulder pain. Denies headache, fever, chills, chest pain, SOB, abdominal pain, diarrhea, constipation. During the team rounds, patient was more cooperative and allowed physical exam to be done. OBJECTIVE: Vital Signs Period Temp Pulse Resp BP Sys/Jang Pulse Ox Last 24 Hr 97.5 F 70-88 20-20 138-141/65-66 96-97 GENERAL: The patient is awake, in no acute distress. HEAD: +abrasion on right temporal area LUNGS: Breath sounds equal, clear to auscultation bilaterally. HEART: Regular rate and rhythm, S1, S2 without murmur, rub or gallop. ABDOMEN: Soft, nontender, nondistended, normoactive bowel sounds. EXTREMITIES: 2+ pulses, warm, well-perfused, no edema. Laboratory Results - last 24 hr 06/01/18 06/01/18 06/01/18 00:50 00:50 00:50 WBC Cancelled Corrected WBC (auto) Cancelled RBC Cancelled Hgb Cancelled Hct Cancelled MCV Cancelled MCH Cancelled MCHC Cancelled RDW Cancelled Plt Count Cancelled MPV Cancelled Absolute Neuts (auto) Cancelled Absolute Lymphs (auto) Cancelled Absolute Monos (auto) Cancelled Absolute Eos (auto) Cancelled Absolute Basos (auto) Cancelled Add Manual Diff Cancelled Neutrophils % Cancelled Lymphocytes % Cancelled Monocytes % Cancelled Eosinophils % Cancelled Basophils % Cancelled Nucleated RBC % Cancelled Hypersegmented Neuts Cancelled Hypochromia Cancelled Toxic Granulation Cancelled Dohle Bodies Cancelled [place] Rods Cancelled Platelet Estimate Cancelled Platelet Comment Cancelled Normal RBC Morphology Cancelled Polychromasia Cancelled Poikilocytosis Cancelled Basophilic Stippling Cancelled Anisocytosis Cancelled Microcytosis Cancelled Macrocytosis Cancelled Spherocytes Cancelled Siderocytes Cancelled Sickle Cells Cancelled Target Cells Cancelled Tear Drop Cells Cancelled Ovalocytes Cancelled Stomatocytes Cancelled Helmet Cells Cancelled [place] Bodies Cancelled [place] Rings Cancelled [place] Cells Cancelled Acanthocytes (Spur) Cancelled Rouleaux Cancelled Fragmented RBCs Cancelled Schistocytes Cancelled Morphology Comment Cancelled Retic Count PT with INR 11.60 INR 0.98 PTT (Actin FS) 19.2 L Sodium 141 Potassium 3.5 Chloride 103 Carbon Dioxide 28 Anion Gap 9 BUN 6 L Creatinine 0.5 L Creat Clearance w eGFR > 60 Random Glucose 88 Calcium 8.6 Phosphorus 3.6 Magnesium 1.8 Total Bilirubin 0.3 AST 33 ALT 25 Alkaline Phosphatase 110 Troponin I < 0.02 Total Protein 7.0 Albumin 3.4 Alcohol, Quantitative Blood Type Antibody Screen 06/01/18 06/01/18 06/01/18 00:50 01:57 01:57 WBC 9.7 Corrected WBC (auto) RBC 3.71 L Hgb 9.6 L Hct 29.1 L MCV 78.4 L MCH 25.8 MCHC 32.9 RDW 22.5 H Plt Count 294 MPV 7.5 Absolute Neuts (auto) 7.5 Absolute Lymphs (auto) Absolute Monos (auto) Absolute Eos (auto) Absolute Basos (auto) Add Manual Diff Neutrophils % 76.9 Lymphocytes % 14.5 D Monocytes % 6.0 Eosinophils % 2.1 Basophils % 0.5 Nucleated RBC % 0 Hypersegmented Neuts Hypochromia Toxic Granulation Dohle Bodies [place]uv[place] Rods Platelet Estimate Adequate Platelet Comment No clotting detected Normal RBC Morphology Polychromasia Poikilocytosis Basophilic Stippling Anisocytosis 2+ Microcytosis 1+ Macrocytosis Spherocytes Siderocytes Sickle Cells Target Cells Tear Drop Cells Ovalocytes Stomatocytes Helmet Cells [place] Bodies [place] Rings [place] Cells Acanthocytes (Spur) Rouleaux Fragmented RBCs Schistocytes Morphology Comment Retic Count PT with INR INR PTT (Actin FS) Sodium Potassium Chloride Carbon Dioxide Anion Gap BUN Creatinine Creat Clearance w eGFR Random Glucose Calcium Phosphorus Magnesium Total Bilirubin AST ALT Alkaline Phosphatase Troponin I Total Protein Albumin Alcohol, Quantitative 180.1 H Blood Type O POSITIVE Antibody Screen Negative 06/01/18 06/01/18 05:01 05:01 WBC 7.5 Corrected WBC (auto) RBC 3.69 L Hgb 8.9 L Hct 29.3 L MCV 79.5 L MCH 24.2 L MCHC 30.4 L RDW 22.2 H Plt Count 258 MPV 7.3 L Absolute Neuts (auto) Absolute Lymphs (auto) Absolute Monos (auto) Absolute Eos (auto) Absolute Basos (auto) Add Manual Diff Neutrophils % Lymphocytes % Monocytes % Eosinophils % Basophils % Nucleated RBC % Hypersegmented Neuts Hypochromia Toxic Granulation Dohle Bodies [place]uv[place] Rods Platelet Estimate Platelet Comment Normal RBC Morphology Polychromasia Poikilocytosis Basophilic Stippling Anisocytosis Microcytosis Macrocytosis Spherocytes Siderocytes Sickle Cells Target Cells Tear Drop Cells Ovalocytes Stomatocytes Helmet Cells [place] Bodies [place] Rings Karen Cells Acanthocytes (Spur) Rouleaux Fragmented RBCs Schistocytes Morphology Comment Retic Count 1.41 PT with INR INR PTT (Actin FS) Sodium 140 Potassium 3.2 L Chloride 106 Carbon Dioxide 26 Anion Gap 9 BUN 6 L Creatinine 0.4 L Creat Clearance w eGFR > 60 Random Glucose 88 Calcium 7.9 L Phosphorus 3.6 Magnesium 1.5 L Total Bilirubin 0.4 AST 30 ALT 21 Alkaline Phosphatase 97 Troponin I Total Protein 6.2 L Albumin 3.0 L Alcohol, Quantitative Blood Type Antibody Screen Active Medications Generic Name Dose Route Start Last Admin Trade Name Freq PRN Reason Stop Dose Admin Acetaminophen 1,000 mg 06/01/18 03:32 Ofirmev Injection - IVPB Q6H PRN PAIN LEVEL 6-10 Amlodipine Besylate 5 mg 06/01/18 10:00 06/01/18 09:49 Norvasc - PO Not Given DAILY [facility] Chlordiazepoxide HCl 25 mg 06/01/18 10:20 Librium - PO Q6HPO PRN AGITATION Heparin Sodium (Porcine) 5,000 unit 06/01/18 14:00 Heparin - SQ TID [facility] Sodium Chloride 1,000 mls @ 125 mls/hr 06/01/18 05:45 06/01/18 09:34 Normal Saline - IV Not Given ASDIR [facility] Morphine Sulfate 4 mg 06/01/18 03:26 06/01/18 09:37 Morphine Sulfate IVPUSH 4 mg Q4H PRN Administration PAIN LEVEL 7 - 10 Prochlorperazine Maleate 5 mg 06/01/18 10:33 Compazine - PO Q4H PRN NAUSEA AND/OR VOMITING ASSESSMENT/PLAN: Patient is a 63 year old male with past medical history of HTN, ?mesothelioma, EtOH abuse, and known history of multiple ED visits for alcohol intoxication, presented with right arm pain after a fall. #Right humeral avulsion fracture s/p fall -Pain control. Received IV morphine today. Will switch to Ibuprofen 600mg and Tylenol 650mg -Ortho (Dr. Yusuf) consulted. Recommendations appreciated. -No surgical intervention -Keep the sling for immobilization -Elevate head of bed -pain control -ROM exercises for elbow, wrist and hand #EtOH Abuse -No signs of withdrawal yet. -Librium 25mg q6 PRN for withdrawal s/sx -Received Thiamine, Folic acid at the ED -Thiamine 100mg daily -Folic acid 1mg daily -Compazine 5 q4h PRN for nausea and vomiting #Microcytic Anemia -H/H 8.9/29.3, baseline Hgb about 10 -possible 2/2 iron deficiency, poor nutritional intake -Iron studies pending -Will continue to monitor CBC #Hypertension: stable -patient reports noncompliance -Will continue Amlodipine 5mg #FEN -IV NS @100ml -Hypokalemia, hypomagnesemia - repleted -will monitor BMP -Sodium controlled diet #Prophylaxis -Heparin 5000units sq tid #Disposition -full code -med-surg Visit type - Emergency Visit Emergency Visit: Yes ED Registration Date: 06/01/18 Care time: The patient presented to the Emergency Department on the above date and was hospitalized for further evaluation of their emergent condition. - New Patient This patient is new to me today: Yes Date on this admission: 06/01/18 - Critical Care Critical Care patient: No
[2018-06-01] MEDS: HEPARIN NA (PORCINE) 5,000 UNITS/ML 1ML VIAL SQ SCH ×2 (13:53→22:05)
--- NOTE | 2018-06-01 15:04 | CON.ORTH ---
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 History of Recent Travel: No Home Medications - Allergies Allergies/Adverse Reactions: Allergies Allergy/AdvReac Type Severity Reaction Status Date / Time Fish Containing Products Allergy Mild Swelling Verified 05/31/18 21:29 No Known Drug Allergies Allergy Verified 05/31/18 21:29 Family Disease History - Family Disease History Family Disease History: CA: Mother (), Brother (Colon CA), Other: Grandparent (ALCOHOLISM), Father (ALCOHOL,), Son () Physical Exam for Ortho Vital Signs: Vital Signs Temperature 98.9 F 06/01/18 14:19 Pulse Rate 95 H 06/01/18 14:19 Respiratory Rate 18 06/01/18 14:19 Blood Pressure 154/92 06/01/18 14:19 O2 Sat by Pulse Oximetry (%) 97 06/01/18 05:39 Labs: CBC, BMP 06/01/18 05:01 06/01/18 05:01 INR, PTT INR 0.98 (0.83-1.09) 06/01/18 00:50 - Upper Extremity Shoulder: Yes: Right, Limited ROM, Pain, Swelling, Tenderness, Other (nvi) Imaging - Results X-ray: Report Reviewed, Image Reviewed Assessment/Plan 63 yo M with a PMHx of HTN, mesothelioma, Alcohol abuse with multiple ED visits for EtOH intoxication who presented to the ED once again for EtOH intoxication and fall. pt was BIBA s/p fall hit head with abrasion to forehead. Pt is c/o right upper arm pain radiating to right elbow. Patient reports that he doesn't recall what happened. denies n/v/d, abdominal pain, cp, SOB, fever/chills. a/p- Right proximal humerus- minimal displacement No surgical intervention sling for immobilization elevate [facility] pain control ROM exercises for elbow, wrist and hand d/w Dr. Munguia
--- NOTE | 2018-06-01 16:25 | EKG ---
Test Reason : Blood Pressure : / mmHG Vent. Rate : 084 BPM Atrial Rate : 084 BPM P-R Int : 174 ms QRS Dur : 090 ms QT Int : 402 ms P-R-T Axes : 021 -30 035 degrees QTc Int : 475 ms NORMAL SINUS RHYTHM LEFT AXIS DEVIATION ABNORMAL ECG Confirmed by MD JESSY, JUNIOR ([id number]) on 06/01/2018 4:25:31 PM Referred By: Confirmed By:JUNIOR JIMÉNEZ MD
[2018-06-01] MEDS: IBUPROFEN 600 MG TABLET (FP) PO PRN ×2 (17:40→23:52)
[2018-06-01] MEDS: PANTOPRAZOLE 40 MG TABLET (FP) PO SCH (17:40)
[2018-06-02 04:18] LABS: SERUM IRON SATURATION 3 % (15-55); TOTAL IRON BINDING CAPACITY 422 ug/dL (250-450); UIBC 411 ug/dL (111-343)
[2018-06-02] MEDS: SODIUM CHLORIDE 1,000 ML IV SCH (06:18)
[2018-06-02] MEDS: HEPARIN NA (PORCINE) 5,000 UNITS/ML 1ML VIAL SQ SCH ×3 (06:19→21:39)
[2018-06-02] MEDS: IBUPROFEN 600 MG TABLET (FP) PO PRN ×2 (06:22→11:03)
[2018-06-02 06:47] LABS: HEMATOCRIT 26.4 % (35.4-49); HEMOGLOBIN 8.6 GM/dL (11.7-16.9); MCH 25.5 pg (25.7-33.7); MCHC 32.4 g/dl (32.0-35.9); MEAN CELL VOLUME 78.7 fl (80-96); PLATELET COUNT 277 K/MM3 (134-434); RBC 3.36 M/mm3 (4.00-5.60); RDW 23.3 % (11.9-15.9); WHITE BLOOD COUNT 7.6 K/mm3 (4.0-10.0)
[2018-06-02 06:57] LABS: ANION GAP 7 MMOL/L (8-16); BLOOD UREA NITROGEN 6 mg/dL (7-18); CALCIUM 7.8 mg/dL (8.5-10.1); CHLORIDE 108 mmol/L (98-107); CO2 26 mmol/L (21-32); CREATININE 0.5 mg/dL (0.55-1.3); GLUCOSE,RANDOM 84 mg/dL (74-106); MAGNESIUM 1.5 mg/dL (1.8-2.4); PHOSPHOROUS 3.2 mg/dL (2.5-4.9); POTASSIUM 3.4 mmol/L (3.5-5.1); SODIUM 141 mmol/L (136-145)
[2018-06-02] MEDS ORDERED: MAGNESIUM OXIDE 400 MG TABLET (FP) PO ONE (08:04)
[2018-06-02 08:05] LABS: URINE APPEARANCE CLEAR; URINE BILIRUBIN NEGATIVE (<2.0 mg/dL); URINE COLOR YELLOW; URINE GLUCOSE (UA) NEGATIVE (NEGATIVE); URINE KETONE NEGATIVE (NEGATIVE); URINE LEUK ESTERASE NEGATIVE (NEGATIVE); URINE NITRITE NEGATIVE (NEGATIVE); URINE PROTEIN NEGATIVE (NEGATIVE); URINE UROBILINOGEN NEGATIVE mg/dL (0.2-1.0)
--- NOTE | 2018-06-02 08:22 | PN ---
Teaching Attending Note Name of Resident: Bertha Anderson ATTENDING PHYSICIAN STATEMENT I saw and evaluated the patient. I reviewed the resident's note and discussed the case with the resident. I agree with the resident's findings and plan as documented. SUBJECTIVE: Patient is comfortable with no acute distress, But patient does not want to wear the sling. OBJECTIVE: Vital Signs Temperature 98.7 F 06/02/18 06:00 Pulse Rate 87 06/02/18 06:00 Respiratory Rate 20 06/02/18 06:00 Blood Pressure 137/82 06/02/18 06:00 O2 Sat by Pulse Oximetry (%) 95 06/02/18 03:00 GENERAL: intoxicated, disheveled, aggressive and uncooperative at times HEAD: abrasion on right fore head EYES: sclera anicteric, conjunctiva clear. EARS, NOSE, THROAT: MMM NECK: Normal range of motion, no JVD, or masses. LUNGS: CTAB HEART: RRR, normal S1 and S2 without murmur, rub or gallop. ABDOMEN: Soft, obese, NTND, normoactive bowel sounds, no guarding, no rebound, no masses. EXTREMITIES: No peripheral edema. Right arm off the sling with reduced ROM of arm and shoulder. Tender right shoulder. NEUROLOGICAL: CN 2-12 grossly intact, No asterexis or tremors. CBCD WBC 7.5 K/mm3 (4.0-10.0) 06/01/18 05:01 RBC 3.69 M/mm3 (4.00-5.60) L 06/01/18 05:01 Hgb 8.9 GM/dL (11.7-16.9) L 06/01/18 05:01 Hct 29.3 % (35.4-49) L 06/01/18 05:01 MCV 79.5 fl (80-96) L 06/01/18 05:01 MCHC 30.4 g/dl (32.0-35.9) L 06/01/18 05:01 RDW 22.2 % (11.9-15.9) H 06/01/18 05:01 Plt Count 258 K/MM3 (134-434) 06/01/18 05:01 MPV 7.3 fl (7.5-11.1) L 06/01/18 05:01 CMP Sodium 141 mmol/L (136-145) 06/02/18 06:00 Potassium 3.4 mmol/L (3.5-5.1) L 06/02/18 06:00 Chloride 108 mmol/L (98-107) H 06/02/18 06:00 Carbon Dioxide 26 mmol/L (21-32) 06/02/18 06:00 Anion Gap 7 MMOL/L (8-16) L 06/02/18 06:00 BUN 6 mg/dL (7-18) L 06/02/18 06:00 Creatinine 0.5 mg/dL (0.55-1.3) L 06/02/18 06:00 Creat Clearance w eGFR > 60 (>60) 06/02/18 06:00 Random Glucose 84 mg/dL (74-106) 06/02/18 06:00 Calcium 7.8 mg/dL (8.5-10.1) L 06/02/18 06:00 Total Bilirubin 0.4 mg/dL (0.2-1) 06/01/18 05:01 AST 30 U/L (15-37) 06/01/18 05:01 ALT 21 U/L (13-61) 06/01/18 05:01 Alkaline Phosphatase 97 U/L (45-117) 06/01/18 05:01 Total Protein 6.2 g/dl (6.4-8.2) L 06/01/18 05:01 Albumin 3.0 g/dl (3.4-5.0) L 06/01/18 05:01 CARDIAC ENZYMES Troponin I < 0.02 ng/ml (0.00-0.05) 06/01/18 00:50 Current Medications Generic Name Dose Route Start Last Admin Trade Name Freq PRN Reason Stop Dose Admin Acetaminophen 650 mg 06/01/18 17:28 Tylenol - PO Q6H PRN PAIN LEVEL 6-10 Chlordiazepoxide HCl 25 mg 06/01/18 13:44 06/01/18 23:52 Librium - PO 25 mg Q6HPO PRN Administration WITHDRAWAL(CONT SUBST) Folic Acid 1 mg 06/02/18 10:00 Folic Acid - PO DAILY [facility] Heparin Sodium (Porcine) 5,000 unit 06/01/18 14:00 06/02/18 06:19 Heparin - SQ 5,000 unit TID [facility] Administration Sodium Chloride 1,000 mls @ 125 mls/hr 06/01/18 05:45 06/02/18 06:18 Normal Saline - IV 125 mls/hr ASDIR [facility] Administration Ibuprofen 600 mg 06/01/18 15:38 06/02/18 06:22 Motrin - PO 600 mg Q4H PRN Administration FEVER Pantoprazole Sodium 40 mg 06/01/18 16:30 06/01/18 17:40 Protonix - PO 40 mg DAILY [facility] Administration Prochlorperazine Maleate 5 mg 06/01/18 10:33 Compazine - PO Q4H PRN NAUSEA AND/OR VOMITING Thiamine HCl 100 mg 06/02/18 10:00 Vitamin B1 - PO DAILY [facility] ASSESSMENT AND PLAN: 63 y/o man with h/o Alcoholism, and untreated HTN, who presented intoxicated after a fall and was found to have RUE Fx. # s/p Avulsion Fx of greater tuberosity: no surgical intervention as per ortho , continue current therapy. # Alcohol intoxication: no signs of withdrawal , will start the patient on Librium protocol on 25mg . continue thiamine, and folic acid. # Microcytic anemia: will start on Iron supplement. 2x per day with colace # HTN controlled: monitor BP . # electrolyte abnormalities : replete Mg and K DVT px: heparin NO MOTRIN PLEASE: HIGH RISK FOR BLEED.
[2018-06-02] MEDS ORDERED: MAGNESIUM SULF 50% (8.12 MEQ/2 ML-1 GM VIAL) IVPB ONE (09:58)
[2018-06-02] MEDS ORDERED: DOCUSATE NA 100 MG/10 ML UNIT-DOSE CUPS PO PRN (09:58)
[2018-06-02] MEDS ORDERED: PT OWN MED DRAWER 7, Y5N ONE (10:02)
[2018-06-02] MEDS: POTASSIUM CHLORIDE TABS 20 MEQ TABLET.ER (FP) PO ONE ×2 (11:04→11:16)
[2018-06-02] MEDS: FOLIC ACID 1 MG TABLET (FP) PO SCH (11:05)
[2018-06-02] MEDS: PANTOPRAZOLE 40 MG TABLET (FP) PO SCH (11:05)
[2018-06-02] MEDS: FERROUS SO4 325 MG TABLET (FP) PO SCH ×2 (11:06→21:39)
[2018-06-02] MEDS: THIAMINE HCL 100 MG TABLET (FP) PO SCH (11:08)
--- NOTE | 2018-06-02 11:50 | PN ---
Progress Note (short form) - Note Progress Note: Ortho Pt seen and examined s/p right proximal humerus fx Selected Entries 06/02/18 06:00 Temperature 98.7 F Pulse Rate 87 Respiratory 20 Rate Blood Pressure 137/82 + ttp, dec rom, nvi a/p sling NWB RUE pain control ok to d/c from ortho pov d/w Dr. Munguia
[2018-06-02] MEDS: chlordiazePOXIDE HCL 25 MG CAPSULE PO PRN (12:24)
--- NOTE | 2018-06-02 14:19 | PN ---
Physical Exam: SUBJECTIVE: Patient seen and examined at bedside this morning. Patient appears agitated today. As per nursing, he refused to wear his arm sling as it causes him neck pain, and threw the sling. Patient refused to cooperate and raises his voice when asked questions. OBJECTIVE: Vital Signs Period Temp Pulse Resp BP Sys/Jang Pulse Ox Last 24 Hr 98 F-98.9 F 87-95 18-24 136-155/81-92 95 GENERAL: The patient is awake, mildly agitated, in no acute distress. HEAD: +abrasion on right temporal area LUNGS: Breath sounds equal, clear to auscultation bilaterally. HEART: Regular rate and rhythm, S1, S2 without murmur, rub or gallop. ABDOMEN: Soft, nontender, nondistended, normoactive bowel sounds. EXTREMITIES: 2+ pulses, warm, well-perfused, no edema. Laboratory Results - last 24 hr 06/01/18 06/02/18 06/02/18 08:58 05:45 06:00 WBC 7.6 RBC 3.36 L Hgb 8.6 L Hct 26.4 L MCV 78.7 L MCH 25.5 L MCHC 32.4 RDW 23.3 H Plt Count 277 MPV 8.0 Sodium Potassium Chloride Carbon Dioxide Anion Gap BUN Creatinine Creat Clearance w eGFR Random Glucose Calcium Phosphorus Magnesium Iron 11 L TIBC 422 Iron Saturation 3 L Urine Color Yellow Urine Appearance Clear Urine pH 7.0 D Ur Specific [place] 1.009 L Urine Protein Negative Urine Glucose (UA) Negative Urine Ketones Negative Urine Blood Negative Urine Nitrite Negative Urine Bilirubin Negative Urine Urobilinogen Negative Ur Leukocyte Esterase Negative 06/02/18 06:00 WBC RBC Hgb Hct MCV MCH MCHC RDW Plt Count MPV Sodium 141 Potassium 3.4 L Chloride 108 H Carbon Dioxide 26 Anion Gap 7 L BUN 6 L Creatinine 0.5 L Creat Clearance w eGFR > 60 Random Glucose 84 Calcium 7.8 L Phosphorus 3.2 Magnesium 1.5 L Iron TIBC Iron Saturation Urine Color Urine Appearance Urine pH Ur Specific [place] Urine Protein Urine Glucose (UA) Urine Ketones Urine Blood Urine Nitrite Urine Bilirubin Urine Urobilinogen Ur Leukocyte Esterase Active Medications Generic Name Dose Route Start Last Admin Trade Name Freq PRN Reason Stop Dose Admin Acetaminophen 650 mg 06/01/18 17:28 Tylenol - PO Q6H PRN PAIN LEVEL 6-10 Chlordiazepoxide HCl 25 mg 06/03/18 11:00 Librium - PO 06/04/18 05:01 [id number] CAREY Chlordiazepoxide HCl 15 mg 06/04/18 11:00 Librium - PO 06/05/18 05:01 [id number] CAREY Chlordiazepoxide HCl 25 mg 06/02/18 10:29 06/02/18 12:24 Librium - PO 06/05/18 10:28 25 mg Q4H PRN Administration WITHDRAWAL(CONT SUBST) Chlordiazepoxide HCl 10 mg 06/05/18 11:00 Librium - PO 06/06/18 05:01 [id number] [facility] Docusate Sodium 100 mg 06/02/18 09:58 Colace Liquid - PO TID PRN CONSTIPATION Ferrous Sulfate 325 mg 06/02/18 10:00 06/02/18 11:06 Feosol - PO 325 mg BID CAREY Administration Folic Acid 1 mg 06/02/18 10:00 06/02/18 11:05 Folic Acid - PO 1 mg DAILY CAREY Administration Heparin Sodium (Porcine) 5,000 unit 06/01/18 14:00 06/02/18 06:19 Heparin - SQ 5,000 unit TID CAREY Administration Sodium Chloride 1,000 mls @ 125 mls/hr 06/01/18 05:45 06/02/18 06:18 Normal Saline - IV 125 mls/hr ASDIR CAREY Administration Ibuprofen 600 mg 06/01/18 15:38 06/02/18 11:03 Motrin - PO 600 mg Q4H PRN Administration FEVER Pantoprazole Sodium 40 mg 06/01/18 16:30 06/02/18 11:05 Protonix - PO 40 mg DAILY CAREY Administration Prochlorperazine Maleate 5 mg 06/01/18 10:33 Compazine - PO Q4H PRN NAUSEA AND/OR VOMITING Thiamine HCl 100 mg 06/02/18 10:00 06/02/18 11:08 Vitamin B1 - PO 100 mg DAILY CAREY Administration ASSESSMENT/PLAN: Patient is a 63 year old male with past medical history of HTN, ?mesothelioma, EtOH abuse, and known history of multiple ED visits for alcohol intoxication, presented with right arm pain after a fall. #Right humeral avulsion fracture s/p fall -Pain control. Received IV morphine today. Will switch to Ibuprofen 600mg and Tylenol 650mg -Ortho (Dr. Yusuf) consulted. Recommendations appreciated. -No surgical intervention -Keep the sling for immobilization -Elevate head of bed -pain control -ROM exercises for elbow, wrist and hand #EtOH Abuse -Patient becoming agitated. -Librium protocol started. -Received Thiamine, Folic acid at the ED -Thiamine 100mg daily -Folic acid 1mg daily -Compazine 5 q4h PRN for nausea and vomiting #Microcytic Anemia -H/H 8.6/26.4, baseline Hgb about 10 -possible 2/2 iron deficiency, poor nutritional intake -Iron 11, TIBC 422, Iron sat'n 3 -Will continue to monitor CBC #Hypertension: stable -patient reports noncompliance -Will continue Amlodipine 5mg #FEN -IV NS @100ml -Hypokalemia, hypomagnesemia - repleted -will monitor BMP -Sodium controlled diet #Prophylaxis -Heparin 5000units sq tid #Disposition -full code -med-surg Visit type - Emergency Visit Emergency Visit: Yes ED Registration Date: 06/02/18 Care time: The patient presented to the Emergency Department on the above date and was hospitalized for further evaluation of their emergent condition. - New Patient This patient is new to me today: Yes Date on this admission: 06/02/18 - Critical Care Critical Care patient: No
[2018-06-02] MEDS: ACETAMINOPHEN 325 MG TABLET (FP) PO PRN (21:39)
[2018-06-03] MEDS: ACETAMINOPHEN 325 MG TABLET (FP) PO PRN (02:45)
[2018-06-03] MEDS: chlordiazePOXIDE HCL 25 MG CAPSULE PO PRN (02:46)
[2018-06-03] MEDS: HEPARIN NA (PORCINE) 5,000 UNITS/ML 1ML VIAL SQ SCH ×3 (05:24→22:22)
[2018-06-03 07:06] LABS: BASO % 0.5 % (0-2.0); EOS % 2.4 % (0-4.5); HEMATOCRIT 26.9 % (35.4-49); LYMPH % 12.6 % (8-40); MCH 25.8 pg (25.7-33.7); MCHC 33.3 g/dl (32.0-35.9); MEAN CELL VOLUME 77.5 fl (80-96); MEAN PLT VOLUME 8.1 fl (7.5-11.1); MONO % 7.9 % (3.8-10.2); NEUT % 76.6 % (42.8-82.8); PLATELET COUNT 289 K/MM3 (134-434); RBC 3.48 M/mm3 (4.00-5.60); RDW 22.7 % (11.9-15.9); WHITE BLOOD COUNT 8.9 K/mm3 (4.0-10.0)
[2018-06-03 07:22] LABS: ANION GAP 8 MMOL/L (8-16); BLOOD UREA NITROGEN 5 mg/dL (7-18); CALCIUM 8.5 mg/dL (8.5-10.1); CHLORIDE 104 mmol/L (98-107); CO2 25 mmol/L (21-32); CREATININE 0.4 mg/dL (0.55-1.3); GLUCOSE,RANDOM 85 mg/dL (74-106); MAGNESIUM 1.8 mg/dL (1.8-2.4); PHOSPHOROUS 2.9 mg/dL (2.5-4.9); POTASSIUM 3.4 mmol/L (3.5-5.1); SODIUM 137 mmol/L (136-145)
[2018-06-03] MEDS ORDERED: MAGNESIUM OXIDE 400 MG TABLET (FP) PO ONE (09:30)
--- NOTE | 2018-06-03 09:31 | PN ---
Teaching Attending Note Name of Resident: Bertha Anderson ATTENDING PHYSICIAN STATEMENT I saw and evaluated the patient. I reviewed the resident's note and discussed the case with the resident. I agree with the resident's findings and plan as documented. SUBJECTIVE: Patient feels better. No fever or chills. OBJECTIVE: Vital Signs Temperature 98.8 F 06/03/18 06:00 Pulse Rate 93 H 06/03/18 06:00 Respiratory Rate 20 06/03/18 06:00 Blood Pressure 161/96 06/03/18 06:00 O2 Sat by Pulse Oximetry (%) 97 06/02/18 19:00 GENERAL: intoxicated, disheveled, aggressive and uncooperative at times HEAD: abrasion on right fore head EYES: sclera anicteric, conjunctiva clear. EARS, NOSE, THROAT: MMM NECK: Normal range of motion, no JVD, or masses. LUNGS: CTAB HEART: RRR, normal S1 and S2 without murmur, rub or gallop. ABDOMEN: Soft, obese, NTND, normoactive bowel sounds, no guarding, no rebound, no masses. EXTREMITIES: No peripheral edema. Right arm off the sling with reduced ROM of arm and shoulder. Tender right shoulder. NEUROLOGICAL: CN 2-12 grossly intact, No asterexis or tremors. CBCD WBC 8.9 K/mm3 (4.0-10.0) 06/03/18 06:00 RBC 3.48 M/mm3 (4.00-5.60) L 06/03/18 06:00 Hgb 9.0 GM/dL (11.7-16.9) L 06/03/18 06:00 Hct 26.9 % (35.4-49) L 06/03/18 06:00 MCV 77.5 fl (80-96) L 06/03/18 06:00 MCHC 33.3 g/dl (32.0-35.9) 06/03/18 06:00 RDW 22.7 % (11.9-15.9) H 06/03/18 06:00 Plt Count 289 K/MM3 (134-434) 06/03/18 06:00 MPV 8.1 fl (7.5-11.1) 06/03/18 06:00 CMP Sodium 137 mmol/L (136-145) 06/03/18 06:00 Potassium 3.4 mmol/L (3.5-5.1) L 06/03/18 06:00 Chloride 104 mmol/L (98-107) 06/03/18 06:00 Carbon Dioxide 25 mmol/L (21-32) 06/03/18 06:00 Anion Gap 8 MMOL/L (8-16) 06/03/18 06:00 BUN 5 mg/dL (7-18) L 06/03/18 06:00 Creatinine 0.4 mg/dL (0.55-1.3) L 06/03/18 06:00 Creat Clearance w eGFR > 60 (>60) 06/03/18 06:00 Random Glucose 85 mg/dL (74-106) 06/03/18 06:00 Calcium 8.5 mg/dL (8.5-10.1) 06/03/18 06:00 Total Bilirubin 0.4 mg/dL (0.2-1) 06/01/18 05:01 AST 30 U/L (15-37) 06/01/18 05:01 ALT 21 U/L (13-61) 06/01/18 05:01 Alkaline Phosphatase 97 U/L (45-117) 06/01/18 05:01 Total Protein 6.2 g/dl (6.4-8.2) L 06/01/18 05:01 Albumin 3.0 g/dl (3.4-5.0) L 06/01/18 05:01 CARDIAC ENZYMES Troponin I < 0.02 ng/ml (0.00-0.05) 06/01/18 00:50 Current Medications Generic Name Dose Route Start Last Admin Trade Name Freq PRN Reason Stop Dose Admin Acetaminophen 650 mg 06/01/18 17:28 06/03/18 02:45 Tylenol - PO 650 mg Q6H PRN Administration PAIN LEVEL 6-10 Chlordiazepoxide HCl 25 mg 06/03/18 11:00 Librium - PO 06/04/18 05:01 [id number] CAREY Chlordiazepoxide HCl 15 mg 06/04/18 11:00 Librium - PO 06/05/18 05:01 [id number] CAREY Chlordiazepoxide HCl 25 mg 06/02/18 10:29 06/03/18 02:46 Librium - PO 06/05/18 10:28 25 mg Q4H PRN Administration WITHDRAWAL(CONT SUBST) Chlordiazepoxide HCl 10 mg 06/05/18 11:00 Librium - PO 06/06/18 05:01 [id number] CAREY Docusate Sodium 100 mg 06/02/18 09:58 Colace Liquid - PO TID PRN CONSTIPATION Ferrous Sulfate 325 mg 06/02/18 10:00 06/02/18 21:39 Feosol - PO 325 mg BID CAREY Administration Folic Acid 1 mg 06/02/18 10:00 06/02/18 11:05 Folic Acid - PO 1 mg DAILY CAREY Administration Heparin Sodium (Porcine) 5,000 unit 06/01/18 14:00 06/03/18 05:24 Heparin - SQ 5,000 unit TID CAREY Administration Magnesium Oxide 800 mg 06/03/18 09:30 Mag-Ox - PO 06/03/18 09:31 ONCE ONE Pantoprazole Sodium 40 mg 06/01/18 16:30 06/02/18 11:05 Protonix - PO 40 mg DAILY CAREY Administration Potassium Chloride 40 meq 06/03/18 09:30 K-Dur - PO 06/03/18 09:31 ONCE ONE Thiamine HCl 100 mg 06/02/18 10:00 06/02/18 11:08 Vitamin B1 - PO 100 mg DAILY CAREY Administration ASSESSMENT AND PLAN: 63 y/o man with h/o Alcoholism, and untreated HTN, who presented intoxicated after a fall and was found to have RUE Fx. # s/p Avulsion Fx of greater tuberosity: no surgical intervention as per ortho , continue current therapy. # Alcohol intoxication: no signs of withdrawal , will start the patient on Librium protocol on 25mg with the taper . continue thiamine, and folic acid. # Microcytic anemia: will start on Iron supplement. 2x per day with colace # HTN controlled: monitor BP . # electrolyte abnormalities : replete Mg and K , will monitor DVT px: heparin possible snf in am
--- NOTE | 2018-06-03 09:59 | PN ---
Progress Note (short form) - Note Progress Note: Pt sen and examined. He has a right proximal humerus fracture, in acceptable alignment, he does not need surgery. He is refusing to wear the sling. We went over activity restrictions again. He can be DC'd from an orthopedic pov, and f/u as an out pt No surgery needed
[2018-06-03] MEDS: FOLIC ACID 1 MG TABLET (FP) PO SCH (10:30)
[2018-06-03] MEDS: chlordiazePOXIDE HCL 25 MG CAPSULE PO SCH ×3 (10:30→22:22)
[2018-06-03] MEDS: PANTOPRAZOLE 40 MG TABLET (FP) PO SCH (10:30)
[2018-06-03] MEDS: FERROUS SO4 325 MG TABLET (FP) PO SCH ×2 (10:30→22:21)
[2018-06-03] MEDS: POTASSIUM CHLORIDE TABS 20 MEQ TABLET.ER (FP) PO ONE ×2 (10:30→10:35)
[2018-06-03] MEDS: THIAMINE HCL 100 MG TABLET (FP) PO SCH (10:30)
[2018-06-03] MEDS: amLODIPine BESYLATE 5 MG TABLET (FP) PO SCH (14:32)
--- NOTE | 2018-06-03 15:42 | PN ---
Physical Exam: SUBJECTIVE: Patient seen and examined at bedside this morning. Patient was minimally cooperative again today. As per nursing, patient became agitated later in the morning, and was yelling and kicking trying to get out of bed. He later on became more calm. No acute events overnight. OBJECTIVE: Vital Signs Period Temp Pulse Resp BP Sys/Jang Pulse Ox Last 24 Hr 97.8 F-98.8 F 92-99 18-20 140-183/83-108 96-97 GENERAL: The patient is awake, mildly agitated, in no acute distress. HEAD: +abrasion on right temporal area LUNGS: Breath sounds equal, clear to auscultation bilaterally. HEART: Regular rate and rhythm, S1, S2 without murmur, rub or gallop. ABDOMEN: Soft, nontender, nondistended, normoactive bowel sounds. EXTREMITIES: 2+ pulses, warm, well-perfused, no edema. Laboratory Results - last 24 hr 06/03/18 06/03/18 06:00 06:00 WBC 8.9 RBC 3.48 L Hgb 9.0 L Hct 26.9 L MCV 77.5 L MCH 25.8 MCHC 33.3 RDW 22.7 H Plt Count 289 MPV 8.1 Absolute Neuts (auto) 6.8 Neutrophils % 76.6 Lymphocytes % 12.6 Monocytes % 7.9 Eosinophils % 2.4 Basophils % 0.5 Nucleated RBC % 0 Sodium 137 Potassium 3.4 L Chloride 104 Carbon Dioxide 25 Anion Gap 8 BUN 5 L Creatinine 0.4 L Creat Clearance w eGFR > 60 Random Glucose 85 Calcium 8.5 Phosphorus 2.9 Magnesium 1.8 Active Medications Generic Name Dose Route Start Last Admin Trade Name Freq PRN Reason Stop Dose Admin Acetaminophen 650 mg 06/01/18 17:28 06/03/18 02:45 Tylenol - PO 650 mg Q6H PRN Administration PAIN LEVEL 6-10 Amlodipine Besylate 5 mg 06/03/18 14:30 06/03/18 14:32 Norvasc - PO 5 mg DAILY CAREY Administration Chlordiazepoxide HCl 25 mg 06/03/18 11:00 06/03/18 10:30 Librium - PO 06/04/18 05:01 25 mg [id number] CAREY Administration Chlordiazepoxide HCl 15 mg 06/04/18 11:00 Librium - PO 06/05/18 05:01 [id number] CAREY Chlordiazepoxide HCl 25 mg 06/02/18 10:29 06/03/18 02:46 Librium - PO 06/05/18 10:28 25 mg Q4H PRN Administration WITHDRAWAL(CONT SUBST) Chlordiazepoxide HCl 10 mg 06/05/18 11:00 Librium - PO 06/06/18 05:01 [id number] CAREY Docusate Sodium 100 mg 06/02/18 09:58 Colace Liquid - PO TID PRN CONSTIPATION Ferrous Sulfate 325 mg 06/02/18 10:00 06/03/18 10:30 Feosol - PO 325 mg BID CAREY Administration Folic Acid 1 mg 06/02/18 10:00 06/03/18 10:30 Folic Acid - PO 1 mg DAILY CAREY Administration Heparin Sodium (Porcine) 5,000 unit 06/01/18 14:00 06/03/18 14:32 Heparin - SQ 5,000 unit TID CAREY Administration Pantoprazole Sodium 40 mg 06/01/18 16:30 06/03/18 10:30 Protonix - PO 40 mg DAILY CAREY Administration Thiamine HCl 100 mg 06/02/18 10:00 06/03/18 10:30 Vitamin B1 - PO 100 mg DAILY CAREY Administration ASSESSMENT/PLAN: Patient is a 63 year old male with past medical history of HTN, ?mesothelioma, EtOH abuse, and known history of multiple ED visits for alcohol intoxication, presented with right arm pain after a fall. #Right humeral avulsion fracture s/p fall -Pain control. Ibuprofen 600mg and Tylenol 650mg PRN. -Ortho (Dr. Yusuf) consulted. Recommendations appreciated. -No surgical intervention -Keep the sling for immobilization -Elevate head of bed -pain control -ROM exercises for elbow, wrist and hand #EtOH Abuse -Patient intermittently agitated. -On Librium protocol. -Received Thiamine, Folic acid at the ED -Thiamine 100mg daily -Folic acid 1mg daily -Compazine 5 q4h PRN for nausea and vomiting #Microcytic Anemia -H/H 03/10.9, baseline Hgb about 10 -possible 2/2 iron deficiency, poor nutritional intake -Iron 11, TIBC 422, Iron sat'n 3 -Will continue to monitor CBC #Hypertension: stable -patient reports noncompliance -Will continue Amlodipine 5mg #FEN -IV NS @100ml -Hypokalemia, hypomagnesemia - repleted -will monitor BMP -Sodium controlled diet #Prophylaxis -Heparin 5000units sq tid #Disposition -full code -med-surg Visit type - Emergency Visit Emergency Visit: Yes ED Registration Date: 06/02/18 Care time: The patient presented to the Emergency Department on the above date and was hospitalized for further evaluation of their emergent condition. - New Patient This patient is new to me today: No - Critical Care Critical Care patient: No
[2018-06-03] MEDS ORDERED: amLODIPine BESYLATE 5 MG TABLET (FP) PO ONE (22:27)
[2018-06-04] MEDS: chlordiazePOXIDE HCL 25 MG CAPSULE PO SCH (05:51)
[2018-06-04] MEDS: HEPARIN NA (PORCINE) 5,000 UNITS/ML 1ML VIAL SQ SCH (05:51)
[2018-06-04 06:42] VITALS: TEMP 97.5
[2018-06-04 07:14] LABS: HEMATOCRIT 30.1 % (35.4-49); HEMOGLOBIN 9.6 GM/dL (11.7-16.9); MCH 25.1 pg (25.7-33.7); MCHC 31.8 g/dl (32.0-35.9); MEAN CELL VOLUME 79.1 fl (80-96); MEAN PLT VOLUME 8.3 fl (7.5-11.1); PLATELET COUNT 339 K/MM3 (134-434); RBC 3.81 M/mm3 (4.00-5.60); RDW 23.1 % (11.9-15.9); WHITE BLOOD COUNT 8.5 K/mm3 (4.0-10.0)
[2018-06-04 07:21] LABS: ANION GAP 10 MMOL/L (8-16); BLOOD UREA NITROGEN 5 mg/dL (7-18); CHLORIDE 103 mmol/L (98-107); CO2 23 mmol/L (21-32); CREATININE 0.5 mg/dL (0.55-1.3); GLUCOSE,RANDOM 83 mg/dL (74-106); MAGNESIUM 1.9 mg/dL (1.8-2.4); PHOSPHOROUS 3.3 mg/dL (2.5-4.9); POTASSIUM 3.6 mmol/L (3.5-5.1); SODIUM 136 mmol/L (136-145)
[2018-06-04] MEDS ORDERED: POTASSIUM CHLORIDE TABS 20 MEQ TABLET.ER (FP) PO ONE (09:45)
--- NOTE | 2018-06-04 10:15 | PN ---
Teaching Attending Note Name of Resident: Bertha Anderson ATTENDING PHYSICIAN STATEMENT I saw and evaluated the patient. I reviewed the resident's note and discussed the case with the resident. I agree with the resident's findings and plan as documented. SUBJECTIVE: Patient is comfortable with no acute distress. OBJECTIVE: Vital Signs Temperature 97.5 F L 06/04/18 06:41 Pulse Rate 103 H 06/04/18 06:41 Respiratory Rate 20 06/04/18 06:41 Blood Pressure 126/90 06/04/18 06:41 O2 Sat by Pulse Oximetry (%) 96 06/03/18 19:00 GENERAL: intoxicated, disheveled, aggressive and uncooperative at times HEAD: abrasion on right fore head EYES: sclera anicteric, conjunctiva clear. EARS, NOSE, THROAT: MMM NECK: Normal range of motion, no JVD, or masses. LUNGS: CTAB HEART: RRR, normal S1 and S2 without murmur, rub or gallop. ABDOMEN: Soft, obese, NTND, normoactive bowel sounds, no guarding, no rebound, no masses. EXTREMITIES: No peripheral edema. Right arm off the sling with reduced ROM of arm and shoulder. Tender right shoulder. NEUROLOGICAL: CN 2-12 grossly intact, No asterexis or tremors. CBCD WBC 8.5 K/mm3 (4.0-10.0) 06/04/18 06:00 RBC 3.81 M/mm3 (4.00-5.60) L 06/04/18 06:00 Hgb 9.6 GM/dL (11.7-16.9) L 06/04/18 06:00 Hct 30.1 % (35.4-49) L 06/04/18 06:00 MCV 79.1 fl (80-96) L 06/04/18 06:00 MCHC 31.8 g/dl (32.0-35.9) L 06/04/18 06:00 RDW 23.1 % (11.9-15.9) H 06/04/18 06:00 Plt Count 339 K/MM3 (134-434) 06/04/18 06:00 MPV 8.3 fl (7.5-11.1) 06/04/18 06:00 CMP Sodium 136 mmol/L (136-145) 06/04/18 06:00 Potassium 3.6 mmol/L (3.5-5.1) 06/04/18 06:00 Chloride 103 mmol/L (98-107) 06/04/18 06:00 Carbon Dioxide 23 mmol/L (21-32) 06/04/18 06:00 Anion Gap 10 MMOL/L (8-16) 06/04/18 06:00 BUN 5 mg/dL (7-18) L 06/04/18 06:00 Creatinine 0.5 mg/dL (0.55-1.3) L 06/04/18 06:00 Creat Clearance w eGFR > 60 (>60) 06/04/18 06:00 Random Glucose 83 mg/dL (74-106) 06/04/18 06:00 Calcium 9.0 mg/dL (8.5-10.1) 06/04/18 06:00 Total Bilirubin 0.4 mg/dL (0.2-1) 06/01/18 05:01 AST 30 U/L (15-37) 06/01/18 05:01 ALT 21 U/L (13-61) 06/01/18 05:01 Alkaline Phosphatase 97 U/L (45-117) 06/01/18 05:01 Total Protein 6.2 g/dl (6.4-8.2) L 06/01/18 05:01 Albumin 3.0 g/dl (3.4-5.0) L 06/01/18 05:01 CARDIAC ENZYMES Troponin I < 0.02 ng/ml (0.00-0.05) 06/01/18 00:50 Current Medications Generic Name Dose Route Start Last Admin Trade Name Freq PRN Reason Stop Dose Admin Acetaminophen 650 mg 06/01/18 17:28 06/03/18 02:45 Tylenol - PO 650 mg Q6H PRN Administration PAIN LEVEL 6-10 Amlodipine Besylate 5 mg 06/03/18 14:30 06/03/18 14:32 Norvasc - PO 5 mg DAILY CAREY Administration Chlordiazepoxide HCl 15 mg 06/04/18 11:00 Librium - PO 06/05/18 05:01 [id number] CAREY Chlordiazepoxide HCl 25 mg 06/02/18 10:29 06/03/18 02:46 Librium - PO 06/05/18 10:28 25 mg Q4H PRN Administration WITHDRAWAL(CONT SUBST) Chlordiazepoxide HCl 10 mg 06/05/18 11:00 Librium - PO 06/06/18 05:01 [id number] CAREY Docusate Sodium 100 mg 06/02/18 09:58 Colace Liquid - PO TID PRN CONSTIPATION Ferrous Sulfate 325 mg 06/02/18 10:00 06/03/18 22:21 Feosol - PO 325 mg BID CAREY Administration Folic Acid 1 mg 06/02/18 10:00 06/03/18 10:30 Folic Acid - PO 1 mg DAILY CAREY Administration Heparin Sodium (Porcine) 5,000 unit 06/01/18 14:00 06/04/18 05:51 Heparin - SQ Not Given TID CAREY Magnesium Oxide 400 mg 06/04/18 12:00 Mag-Ox - PO 06/04/18 12:01 ONCE ONE Pantoprazole Sodium 40 mg 06/01/18 16:30 06/03/18 10:30 Protonix - PO 40 mg DAILY CAREY Administration Thiamine HCl 100 mg 06/02/18 10:00 06/03/18 10:30 Vitamin B1 - PO 100 mg DAILY CAREY Administration ASSESSMENT AND PLAN: Patient is a 63 y/o man with h/o Alcoholism, and untreated HTN, who presented intoxicated after a fall and was found to have RUE Fx. # s/p Avulsion Fx of greater tuberosity: no surgical intervention as per ortho , continue current therapy. # Alcohol intoxication: no signs of withdrawal , will discharge the patient to rehab. continue thiamine, and folic acid. # Microcytic anemia: On Iron supplement continue with colace # HTN controlled now. # electrolyte abnormalities : repleted discharge the patient to snf
[2018-06-04] MEDS ORDERED: chlordiazePOXIDE 5 MG CAPSULE PO SCH (11:00)
[2018-06-04] MEDS ORDERED: traMADol HCL 50 MG TABLET PO PRN (11:47)
[2018-06-04] MEDS ORDERED: MAGNESIUM OXIDE 400 MG TABLET (FP) PO ONE (12:00)
[2018-06-04] MEDS: FOLIC ACID 1 MG TABLET (FP) PO SCH (12:38)
[2018-06-04] MEDS: THIAMINE HCL 100 MG TABLET (FP) PO SCH (12:38)
[2018-06-04] MEDS: PANTOPRAZOLE 40 MG TABLET (FP) PO SCH (12:38)
[2018-06-04] MEDS: amLODIPine BESYLATE 5 MG TABLET (FP) PO SCH (12:38)
[2018-06-04] MEDS: FERROUS SO4 325 MG TABLET (FP) PO SCH (12:39)
[2018-06-04 14:29] VITALS: BP 130/70; PULSE 100
--- NOTE | 2018-06-04 14:46 | DS ---
Physical Exam: SUBJECTIVE: Patient seen and examined at bedside this morning. Patient was noted to have elevated BP overnight, and was given additional Amlodipine 5mg. BP has remained stable the rest of the night. Today patient still reports pain of the right shoulder. Otherwise denies headache, dizziness, fever, chills, tremors, nausea, vomiting, chest pain, SOB, abdominal pain. OBJECTIVE: Vital Signs Period Temp Pulse Resp BP Sys/Jang Pulse Ox Last 24 Hr 97.5 F-98.6 F 92-103 20-20 126-183/70-108 96 PHYSICAL EXAM GENERAL: The patient is awake, mildly agitated, in no acute distress. HEAD: +abrasion on right temporal area LUNGS: Breath sounds equal, clear to auscultation bilaterally. HEART: Regular rate and rhythm, S1, S2 without murmur, rub or gallop. ABDOMEN: Soft, nontender, nondistended, normoactive bowel sounds. EXTREMITIES: 2+ pulses, warm, well-perfused, no edema. LABS Laboratory Results - last 24 hr 06/04/18 06/04/18 06:00 06:00 WBC 8.5 RBC 3.81 L Hgb 9.6 L Hct 30.1 L MCV 79.1 L MCH 25.1 L MCHC 31.8 L RDW 23.1 H Plt Count 339 MPV 8.3 Sodium 136 Potassium 3.6 Chloride 103 Carbon Dioxide 23 Anion Gap 10 BUN 5 L Creatinine 0.5 L Creat Clearance w eGFR > 60 Random Glucose 83 Calcium 9.0 Phosphorus 3.3 Magnesium 1.9 HOSPITAL COURSE: Date of Admission:06/02/18 Date of Discharge: 06/04/18 Patient is a 63 year old homeless man with past medical history of HTN, ? mesothelioma, EtOH abuse, and with known history of multiple ED visits for alcohol intoxication, was admitted because of a right humeral fracture after a fall. Ortho was consulted and no surgical intervention was done as the fracture has an acceptable alignment. Recommended to keep right shoulder immobilized with a sling. Patient was also started on Librium protocol. He was arranged transfer to [facility], but upon discharge, patient adamantly refused and said he will go back to [facility]. Minutes to complete discharge: 40 Discharge Summary Reason For Visit: INTOXICATION,CLOSED HEAD INJURY,CONTUSION OF FACE Condition: Stable - Instructions Diet, Activity, Other Instructions: You were seen because you had a fall and had a fracture on your right shoulder. You were seen by the bone doctor who recommended that you wear the sling and keep your shoulders immobilized for at least 6 weeks . need to follow up with orthopedic within 1 week period. It is very important that you completely stop drinking alcohol. Continuing to drink alcohol can lead to worsening symptoms and health problems including liver failure and even . Do not drive or operate heavy machinery till seen by your doctor. Avoid being alone with children, on heights or in water. Please follow-up with your primary care doctor within 1-2 weeks. Call the medical clinic upon discharge to schedule follow up. Information below: Medical clinic [address] [place] [address] Call 911 or go to the ED if with any worsening shoulder pain, swelling, weakness or numbness of your arms, fever, chills, severe headache, loss of consciousness, or have any seizure, jaundice, belly pain, dark or bloody stools , nausea/vomiting or any other concerning symptoms. Referrals: [facility] [place] [facility] [place] [Provider Group] - 1 Week John Yusuf MD [Staff Physician] - 1 Week Disposition: [facility] - Home Medications Comprehensive Discharge Medication List: Ambulatory Orders Acetaminophen [Tylenol .Regular Strength -] 650 mg PO Q6H PRN tablet 06/04/18 Amlodipine Besylate [Norvasc -] 5 mg PO DAILY tablet 06/04/18 Ferrous Sulfate [Feosol] 325 mg PO BID ud 06/04/18 Folic Acid - 1 mg PO DAILY tablet 06/04/18 Heparin - 5,000 unit SQ TID vial 06/04/18 Pantoprazole Sodium [Protonix -] 40 mg PO DAILY tablet.ec 06/04/18 Thiamine HCl [Vitamin B1 -] 100 mg PO DAILY tablet 06/04/18 This patient is new to me today: No Emergency Visit: Yes ED Registration Date: 06/02/18 Care time: The patient presented to the Emergency Department on the above date and was hospitalized for further evaluation of their emergent condition. Critical Care patient: No - Discharge Referral Referred to [facility] No
[2018-06-05] MEDS ORDERED: chlordiazePOXIDE HCL 10 MG CAPSULE PO SCH (11:00)
== END 2018-06-04 13:24 | disposition home or self-care (01) | DRG 342 ==
LOC: JER 20:57 → JERBED 06-01 02:38 → J7W 06-01 06:21 → OBSVTOIN 06-02 10:27
PROVIDERS: ADMIT Internal Medicine; ATTEND Internal Medicine
DX: S42.201A Unspecified fracture of upper end of right humerus, initial encounter for closed fracture (principal); E87.8 Other disorders of electrolyte and fluid balance, not elsewhere classified; E83.42 Hypomagnesemia; S09.90XA Unspecified injury of head, initial encounter; E87.6 Hypokalemia; F10.120 Alcohol abuse with intoxication, uncomplicated; E66.9 Obesity, unspecified; Z68.35 Body mass index [BMI] 35.0-35.9, adult; C45.9 Mesothelioma, unspecified; W19.XXXA Unspecified fall, initial encounter; Y93.89 Activity, other specified; Z59.0 Homelessness; Y92.89 Other specified places as the place of occurrence of the external cause; S00.81XA Abrasion of other part of head, initial encounter; Y99.8 Other external cause status; D50.9 Iron deficiency anemia, unspecified; I10 Essential (primary) hypertension; Y90.6 Blood alcohol level of 120-199 mg/100 ml
CPT/HCPCS: 36415; 70450-TC; 71045-TC-FY; 72125-TC; 73030-TC-RT-FY; 73060-TC-RT-FY; 73070-TC-RT-FY; 73090-TC-RT-FY; 80048; 80053; 80307; 81003; 82728; 83540; 83550; 83735; 84100; 84484; 85025; 85027; 85044; 85610; 85730; 86850; 86900; 86901; 93005; 93010; 97116-GP; 97161-GP; 99284-25; G0378; J1644; J7030

== ENCOUNTER 2018-06-04 23:34 | Emergency (ER) | payer OTHER ==
[2018-06-05 00:31] VITALS: BP 92/65; PULSE 110; TEMP 98.3; BMI 36.9
--- NOTE | 2018-06-05 02:40 | PDOC ---
History of Present Illness - General Chief Complaint: Pain, Acute Stated Complaint: INTOX Time Seen by Provider: 06/05/18 00:34 History Source: Patient Exam Limitations: No Limitations - History of Present Illness Initial Comments: 06/05/18 02:39 History of Present Illness: 61-year-old male with PMH of mesothelioma with an extension hx of EtOH abuse with multiple ER visits and admissions due to EtOH abuse is biba for public intoxication. Patient at this time is noted to have AOB. Patient is not slurring his speech at this time but is unstable in gait and is intoxicated. Patient is A&Ox3 to deny f/c,n/v/d, constipation, lightheadedness, dizziness, guerra, blurry vision, visual disturbance, chest pain, sob, neck/back pain, abd pain , urinary symptoms; urgency/frequency/hesitancy, hematuria. Patient denies any sick contacts, travel outside the [place] or contact with any sick individuals who have been outside the [place]. Past Medical History: ETOH abuse, Mesothelioma Family History: Mother with cancer Social History: EtOH abuse Surgical history: Denies Allergies: No known drug allergies ROS: CONSTITUTIONAL: Absent: fever, chills, diaphoresis, generalized weakness, malaise, loss of appetite HEENT: Absent: rhinorrhea, nasal congestion, throat pain, throat swelling, difficulty swallowing, mouth swelling, ear pain, eye pain, visual Changes CARDIOVASCULAR: Absent: chest pain, loss of consciousness, palpitations, irregular heart rate, peripheral edema RESPIRATORY: Absent: cough, shortness of breath, dyspnea with exertion, orthopnea, wheezing, stridor, hemoptysis GASTROINTESTINAL: Absent: abdominal pain, abdominal distension, nausea, vomiting, diarrhea, constipation, melena, hematochezia GENITOURINARY: Absent: dysuria, frequency, urgency, hesitancy, hematuria, flank pain, genital pain MUSCULOSKELETAL: Absent: myalgia, arthralgia, joint swelling SKIN: Absent: rash, itching, pallor HEMATOLOGIC/IMMUNOLOGIC: Absent: easy bleeding, easy bruising, lymphadenopathy, frequent infections ENDOCRINE: Absent: unexplained weight gain, unexplained weight loss, heat intolerance, cold intolerance NEUROLOGIC: Absent: headache, focal weakness or paresthesias, dizziness, unsteady gait, seizure, mental status changes, bladder or bowel incontinence PSYCHIATRIC: Absent:+EtOH abuse, No depression or anxiety.anxiety, depression, suicidal or homicidal ideation, hallucinations. GENERAL: Well developed, well nourished. Awake and alert. No acute distress. HEENT: Normocephalic, atraumatic. PERRLA, EOMI. No conjunctival pallor. Sclera are non- icteric. Moist mucous membranes. Oropharynx is clear. NECK: Supple. Full ROM. No JVD. Carotid pulses 2+ and symmetric, without bruits. No thyromegaly. No lymphadenopathy. CARDIOVASCULAR: Regular rate and rhythm. No murmurs, rubs, or gallops. Distal pulses are 2+ and symmetric. PULMONARY: No evidence of respiratory distress. Lungs clear to auscultation bilaterally. No wheezing, rales or rhonchi. ABDOMINAL: Soft. Non-tender. Non-distended. No rebound or guarding. No organomegaly. Normoactive bowel sounds. MUSCULOSKELETAL Normal range of motion at all joints. No bony deformities or tenderness. No CVA tenderness. EXTREMITIES: No cyanosis. No clubbing. No edema. No calf tenderness. SKIN: Warm and dry. Normal capillary refill. No rashes. No jaundice. NEUROLOGICAL: Alert, awake, appropriate. Cranial nerves 2-12 intact. No deficits to light touch and temperature in face, upper extremities and lower extremities. No motor deficits in the in face, upper extremities and lower extremities. Normoreflexic in the upper and lower extremities. Normal speech. Toes are down- going bilaterally. Gait is normal without ataxia. PSYCHIATRIC: Cooperative. Good eye contact. Appropriate mood and affect. Medical Decision Making Patient reassessment: Patient has been noted to be walking and emergency department without difficulty or ataxic gait. Patient is able to communicate clearly and has straight clear mentation. I will discharge this patient to follow-up with outpatient PCP. Patient does not indicate desire at this time for detox. I discussed the physical exam findings, ancillary test results and final diagnoses with the patient. I answered all of the patient's questions. The patient was satisfied with the care received and felt comfortable with the discharge plan and treatment plan. The patient will call their primary care physician within 24 hours to arrange follow-up and will return to the Emergency Department with any new, persistent or worsening symptoms. Printed Discharge Instructions: DI for Alcohol Abuse Additional Instructions: Please follow-up with the included referral for PCP. Return to emergency room if shortness of breath, wheezing, fever greater than 101, chest pain, or fainting occurs. Past History - Past Medical History Allergies/Adverse Reactions: Allergies Allergy/AdvReac Type Severity Reaction Status Date / Time Fish Containing Products Allergy Mild Swelling Verified 06/05/18 00:34 No Known Drug Allergies Allergy Verified 06/05/18 00:34 Home Medications: Ambulatory Orders Acetaminophen [Tylenol .Regular Strength -] 650 mg PO Q6H PRN tablet 06/04/18 Amlodipine Besylate [Norvasc -] 5 mg PO DAILY tablet 06/04/18 Ferrous Sulfate [Feosol] 325 mg PO BID ud 06/04/18 Folic Acid - 1 mg PO DAILY tablet 06/04/18 Heparin - 5,000 unit SQ TID vial 06/04/18 Pantoprazole Sodium [Protonix -] 40 mg PO DAILY tablet.ec 06/04/18 Thiamine HCl [Vitamin B1 -] 100 mg PO DAILY tablet 06/04/18 Anemia: No Asthma: No Cancer: Yes (mesothelioma) Cardiac Disorders: No CVA: No COPD: No CHF: No DVT: No Dementia: No Diabetes: No GI Disorders: No Disorders: No HTN: Yes (non compliance) Hypercholesterolemia: No Kidney Stones: No Liver Disease: No Psychiatric Problems: Yes (alcoholism) Seizures: No Thyroid Disease: No - Surgical History Abdominal Surgery: No Appendectomy: No Cardiac Surgery: No Cholecystectomy: No Lung Surgery: No Neurologic Surgery: No Orthopedic Surgery: No - Family Disease History Family Disease History: CA: Mother - Reproductive History Testicular Surgery: No - Immunization History TDAP Vaccination: Yes Immunization Up to Date: Yes - Suicide/Smoking/Psychosocial Hx Smoking Status: No Smoking History: Never smoked Have you smoked in the past 12 months: No Number of Cigarettes Smoked Daily: 5 If you are a former smoker, when did you quit?: 0 Cigars Per Day: 0 Information on smoking cessation initiated: No 'Breaking Loose' booklet given: 09/22/17 Hx Alcohol Use: No Drug/Substance Use Hx: No Substance Use Type: Alcohol Hx Substance Use Treatment: Yes ([facility] 02/08/18to 02/12/18) *Physical Exam - Vital Signs Last Vital Signs Temp Pulse Resp BP Pulse Ox 98.3 F 110 H 18 92/65 97 06/05/18 00:06 06/05/18 00:06 06/05/18 00:06 06/05/18 00:06 06/05/18 00:06 Moderate Sedation - Procedure Monitoring Vital Signs: Procedure Monitoring Vital Signs Temperature 98.3 F 06/05/18 00:06 Pulse Rate 110 H 06/05/18 00:06 Respiratory Rate 18 06/05/18 00:06 Blood Pressure 92/65 06/05/18 00:06 O2 Sat by Pulse Oximetry (%) 97 06/05/18 00:06 *DC/Admit/Observation/Transfer Diagnosis at time of Disposition: Intoxication Alcohol intoxication Qualifiers: Complication of substance-induced condition: uncomplicated Qualified Code(s): F10.920 - Alcohol use, unspecified with intoxication, uncomplicated - Discharge Dispostion Condition at time of disposition: Stable Decision to Admit order: No - Referrals - Patient Instructions - Post Discharge Activity
== END 2018-06-05 07:17 | disposition home or self-care (01) ==
LOC: JER 23:34
DX: F10.220 Alcohol dependence with intoxication, uncomplicated (principal); I10 Essential (primary) hypertension; Z87.09 Personal history of other diseases of the respiratory system; C45.9 Mesothelioma, unspecified; Z59.0 Homelessness
CPT/HCPCS: 99281-25

== ENCOUNTER 2018-06-06 16:10 | Emergency (ER) | payer OTHER ==
[2018-06-06 16:26] VITALS: BP 149/87; PULSE 89; TEMP 98; BMI 30.1
--- NOTE | 2018-06-06 16:52 | PDOC ---
History of Present Illness - History of Present Illness Initial Comments: 06/06/18 18:13 The patient is a 63 year old male with a history of HTN, Mesothelioma, Alcoholism, well known to our ED who presents for evaluation of alcohol intoxication. The patient notes that he was recently admitted falling a fall with a non-displaced humerus fracture and was discharged 2 days ago. He currently complains of chronic back pain that has not changed. He otherwise denies fevers, chills, SOB, chest pain, nausea, vomiting, abdominal pain, numbness, tingling, weakness, or changes with urination or bowel movements. <Smith Dunbar - Last Filed: 06/06/18 20:57> <Ligia Wilson - Last Filed: 06/07/18 03:18> - General Chief Complaint: Pain Stated Complaint: ARM PAIN Time Seen by Provider: 06/06/18 16:52 Past History - Past Medical History Anemia: No Asthma: No Cancer: Yes (mesothelioma) Cardiac Disorders: No CVA: No COPD: No CHF: No DVT: No Dementia: No Diabetes: No GI Disorders: No Disorders: No HTN: Yes (non compliance) Hypercholesterolemia: No Kidney Stones: No Liver Disease: No Psychiatric Problems: Yes (alcoholism) Seizures: No Thyroid Disease: No - Surgical History Abdominal Surgery: No Appendectomy: No Cardiac Surgery: No Cholecystectomy: No Lung Surgery: No Neurologic Surgery: No Orthopedic Surgery: No - Family Disease History Family Disease History: CA: Mother - Reproductive History Testicular Surgery: No - Immunization History TDAP Vaccination: Yes Immunization Up to Date: Yes - Suicide/Smoking/Psychosocial Hx Smoking Status: No Smoking History: Never smoked Have you smoked in the past 12 months: No Number of Cigarettes Smoked Daily: 5 If you are a former smoker, when did you quit?: 0 Cigars Per Day: 0 'Breaking Loose' booklet given: 09/22/17 Hx Alcohol Use: No Drug/Substance Use Hx: No Substance Use Type: Alcohol Hx Substance Use Treatment: Yes ([facility] 02/08/18to 02/12/18) <Smith Dunbar - Last Filed: 06/06/18 20:57> <Ligia Wilson - Last Filed: 06/07/18 03:18> - Past Medical History Allergies/Adverse Reactions: Allergies Allergy/AdvReac Type Severity Reaction Status Date / Time Fish Containing Products Allergy Mild Swelling Verified 06/06/18 16:14 No Known Drug Allergies Allergy Verified 06/06/18 16:14 Home Medications: Ambulatory Orders Acetaminophen [Tylenol .Regular Strength -] 650 mg PO Q6H PRN tablet 06/04/18 Amlodipine Besylate [Norvasc -] 5 mg PO DAILY tablet 06/04/18 Ferrous Sulfate [Feosol] 325 mg PO BID ud 06/04/18 Folic Acid - 1 mg PO DAILY tablet 06/04/18 Heparin - 5,000 unit SQ TID vial 06/04/18 Pantoprazole Sodium [Protonix -] 40 mg PO DAILY tablet.ec 06/04/18 Thiamine HCl [Vitamin B1 -] 100 mg PO DAILY tablet 06/04/18 Review of Systems - Review of Systems Comments:: 06/06/18 18:15 Constitutional: No fevers, chills, fatigue, malaise HEENT: No Rhinorrhea, nasal congestion, visual changes Cardiovascular: No chest pain, syncope, palpitations, lightheadedness Respiratory: No Cough, SOB, Hemoptysis, Gastrointestinal: No Abdominal pain, Nausea, Vomiting, Constipation, Diarrhea, Melena Genitourinary: No Dysuria, Frequency, Urgency, Hesitancy, Hematuria, Flank pain Musculoskeletal: Chronic Back pain. No Myalgia, arthralgia Skin: No rashes, itching, bruising, pallor Neurologic: No Headache, Dizziness, Numbness, Weakness, or Tingling Psychiatric: No Hallucinations. No SI or HI <Smith Dunbar - Last Filed: 06/06/18 20:57> *Physical Exam - Vital Signs Last Vital Signs Temp Pulse Resp BP Pulse Ox 98.0 F 89 18 149/87 98 06/06/18 16:14 06/06/18 16:14 06/06/18 16:14 06/06/18 16:14 06/06/18 16:14 - Physical Exam Comments: 06/06/18 18:15 General Appearance: Nourished. Intoxicated. Alcohol on Breath. No Apparent Distress HEENT: No Pharyngeal Erythema, Tonsillar Exudate, Tonsillar Erythema Neck: No Cervical Lymphadenopathy Respiratory/Chest: Lungs Clear, Normal Breath Sounds. No Crackles, Rales, Rhonchi, Wheezing Cardiovascular: Regular Rhythm, Regular Rate. No Murmur, Gallops, Rubs Gastrointestinal/Abdominal: Normal Bowel Sounds, Soft. No Guarding, Rebound, Tenderness Musculoskeletal: No CVA Tenderness Extremity: Normal Capillary Refill Integumentary: Normal Color, Dry, Warm Neurologic: Fully Oriented, Alert, Normal Mood/Affect, Normal Response, Intoxicated <Smith Dunbar - Last Filed: 06/06/18 20:57> - Vital Signs Last Vital Signs Temp Pulse Resp BP Pulse Ox 98.0 F 89 18 149/87 98 06/06/18 16:14 06/06/18 16:14 06/06/18 16:14 06/06/18 16:14 06/06/18 16:14 <iLgia Wilson - Last Filed: 06/07/18 03:18> Moderate Sedation - Procedure Monitoring Vital Signs: Procedure Monitoring Vital Signs Temperature 98.0 F 06/06/18 16:14 Pulse Rate 89 06/06/18 16:14 Respiratory Rate 18 06/06/18 16:14 Blood Pressure 149/87 06/06/18 16:14 O2 Sat by Pulse Oximetry (%) 98 06/06/18 16:14 <Smith Dunbar - Last Filed: 06/06/18 20:57> - Procedure Monitoring Vital Signs: Procedure Monitoring Vital Signs Temperature 98.0 F 06/06/18 16:14 Pulse Rate 89 06/06/18 16:14 Respiratory Rate 18 06/06/18 16:14 Blood Pressure 149/87 06/06/18 16:14 O2 Sat by Pulse Oximetry (%) 98 06/06/18 16:14 <Ligia Wilson - Last Filed: 06/07/18 03:18> Medical Decision Making - Medical Decision Making 06/06/18 18:16 The patient is a 63 year old male with a history of HTN, Mesothelioma, Alcoholism, well known to our ED who presents for evaluation of alcohol intoxication. Given the patient's history and physical exam, it is likely the patient's symptoms are due to alcohol intoxication. We will monitor for sobriety and continue to monitor and reassess while here in the ED. <Smith Dunbar - Last Filed: 06/06/18 20:57> *DC/Admit/Observation/Transfer <Smith Dunbar - Last Filed: 06/06/18 20:57> <Ligia Wilson - Last Filed: 06/07/18 03:18> Diagnosis at time of Disposition: Alcohol dependence with uncomplicated intoxication - Discharge Dispostion Disposition: HOME Condition at time of disposition: Stable - Patient Instructions Printed Discharge Instructions: DI for Alcohol Abuse Additional Instructions: Please return to the ER if you experience concerning or worsening symptoms including worsening difficulty breathing, weakness, or chest pain. Please refrain from alcohol use. Please call to schedule a follow up appointment with your primary care provider within 2-3 days to discuss your ER visit and further management of your symptoms.
--- NOTE | 2018-06-06 17:55 | PDOC ---
Attending Attestation - Resident Resident Name: Smith Dunbar - ED Attending Attestation I have performed the following: I have examined & evaluated the patient, The case was reviewed & discussed with the resident, I agree w/resident's findings & plan, Exceptions are as noted - HPI HPI: 06/06/18 17:55 "The patient is a 63-year-old male, with a past medical history of HTN, mesothelioma, alcohol abuse, who presents to the ED with back pain today. The patient has history of chronic back pain and notes he drank a pint of vodka prior to his arrival. He denies any recent fevers, chills, headache or dizziness. He denies any recent nausea, vomit, diarrhea or constipation. He denies any recent chest pain or shortness of breath. He denies any recent dysuria, frequency, urgency or hematuria. Allergies: fish containing products. Past Social History: None reported. Past Surgical History: None reported. - Physicial Exam PE: 06/06/18 17:56 "GENERAL: Awake, alert, and fully oriented, mildly intoxicated HEAD: No signs of trauma EYES: PERRLA, EOMI, sclera anicteric, conjunctiva clear ENT: Auricles normal inspection, hearing grossly normal, nares patent, oropharynx clear without exudates. Moist mucosa NECK: Nontender, no stepoffs, Normal ROM, supple, no lymphadenopathy, JVD, or masses LUNGS: Breath sounds equal, clear to auscultation bilaterally. No wheezes, and no crackles HEART: Regular rate and rhythm, normal S1 and S2, no murmurs, rubs or gallops ABDOMEN: Soft, nontender, normoactive bowel sounds. No guarding, no rebound. No masses EXTREMITIES: Normal range of motion, no edema. No clubbing or cyanosis. No cords, erythema, or tenderness NEUROLOGICAL: Cranial nerves II through XII intact. 5/5 strength and sensation in all extremities, Normal speech, normal gait, normal cerebellar function SKIN: Warm, Dry, normal turgor, no rashes or lesions noted. - Medical Decision Making 06/06/18 17:56 63 M presenting to ED intoxicated, smelling of ETOH, complaining of chronic back pain. Pt with no signs of acute trauma on exam. - Allow to metabolize - Reassess Pt signed out to oncoming attending at 7PM, pending re-evaluation.
== END 2018-06-07 07:03 | disposition home or self-care (01) ==
LOC: JER 16:10
DX: F10.220 Alcohol dependence with intoxication, uncomplicated (principal); I10 Essential (primary) hypertension; M54.9 Dorsalgia, unspecified; G89.29 Other chronic pain; C45.9 Mesothelioma, unspecified; Z59.0 Homelessness; Z87.81 Personal history of (healed) traumatic fracture
CPT/HCPCS: 99282-25

== ENCOUNTER 2018-06-10 17:02 | Emergency (ER) | payer OTHER ==
[2018-06-10 17:17] VITALS: BP 112/79; PULSE 96; TEMP 97.9; BMI 29.5
--- NOTE | 2018-06-10 19:13 | PDOC ---
History of Present Illness <Richard Ulrich - Last Filed: 06/11/18 04:26> - General History Source: Patient Exam Limitations: No Limitations - History of Present Illness Initial Comments: 06/10/18 19:26 63-year-old male, with a past medical history of HTN, mesothelioma, alcohol abuse, who presents to the ED [place] intoxicated. The patient admits to drinking 6 cups of vodka, but denies falling or hitting his head. He has no other complaints and is intoxicated at bedside. He denies back pain, extremity pain or injury, abdominal pain, chest pain or shortness of breath. <Harper Mckeon - Last Filed: 06/13/18 22:52> - General Chief Complaint: Alcohol intoxication Stated Complaint: ALCOHOL INTOXICATION Time Seen by Provider: 06/10/18 18:16 Past History <Richard Ulrich - Last Filed: 06/11/18 04:26> - Past Medical History Anemia: No Asthma: No Cancer: Yes (mesothelioma) Cardiac Disorders: No CVA: No COPD: No CHF: No DVT: No Dementia: No Diabetes: No GI Disorders: No Disorders: No HTN: Yes (non compliance) Hypercholesterolemia: No Kidney Stones: No Liver Disease: No Psychiatric Problems: Yes (alcoholism) Seizures: No Thyroid Disease: No - Surgical History Abdominal Surgery: No Appendectomy: No Cardiac Surgery: No Cholecystectomy: No Lung Surgery: No Neurologic Surgery: No Orthopedic Surgery: No - Family Disease History Family Disease History: CA: Mother - Reproductive History Testicular Surgery: No - Immunization History TDAP Vaccination: Yes Immunization Up to Date: Yes - Suicide/Smoking/Psychosocial Hx Smoking Status: No Smoking History: Unknown if ever smoked Have you smoked in the past 12 months: No Number of Cigarettes Smoked Daily: 5 If you are a former smoker, when did you quit?: 0 Cigars Per Day: 0 Information on smoking cessation initiated: No 'Breaking Loose' booklet given: 09/22/17 Hx Alcohol Use: Yes Drug/Substance Use Hx: No Substance Use Type: Alcohol Hx Substance Use Treatment: Yes ([facility] 02/08/18to 02/12/18) <Harper Mckeon - Last Filed: 06/13/18 22:52> - Past Medical History Allergies/Adverse Reactions: Allergies Allergy/AdvReac Type Severity Reaction Status Date / Time Fish Containing Products Allergy Mild Swelling Verified 06/10/18 17:05 No Known Drug Allergies Allergy Verified 06/10/18 17:05 Home Medications: Ambulatory Orders Acetaminophen [Tylenol .Regular Strength -] 650 mg PO Q6H PRN tablet 06/04/18 Amlodipine Besylate [Norvasc -] 5 mg PO DAILY tablet 06/04/18 Ferrous Sulfate [Feosol] 325 mg PO BID ud 06/04/18 Folic Acid - 1 mg PO DAILY tablet 06/04/18 Heparin - 5,000 unit SQ TID vial 06/04/18 Pantoprazole Sodium [Protonix -] 40 mg PO DAILY tablet.ec 06/04/18 Thiamine HCl [Vitamin B1 -] 100 mg PO DAILY tablet 06/04/18 Review of Systems - Review of Systems Able to Perform ROS?: No (limited 2/2 intoxication) Respiratory: No: Shortness of Breath Cardiac (ROS): No: Chest Pain <Harper Mckeon - Last Filed: 06/13/18 22:52> *Physical Exam - Vital Signs Last Vital Signs Temp Pulse Resp BP Pulse Ox 97.9 F 96 H 18 112/79 96 06/10/18 17:05 06/10/18 17:05 06/10/18 17:05 06/10/18 17:05 06/10/18 17:05 <Richard Ulrich - Last Filed: 06/11/18 04:26> - Vital Signs Last Vital Signs Temp Pulse Resp BP Pulse Ox 97.9 F 96 H 18 112/79 96 06/10/18 17:05 06/10/18 17:05 06/10/18 17:05 06/10/18 17:05 06/10/18 17:05 - Physical Exam Comments: 06/10/18 20:01 GENERAL: intoxicated and lethargic HEAD: No signs of trauma, normocephalic, atraumatic EYES: EOMI, sclera anicteric, conjunctiva clear ENT: oropharynx clear without exudates. Moist mucosa NECK: Normal ROM, supple, No C spine tenderness to palpation LUNGS: No distress, speaks full sentences, clear to auscultation anteriorly HEART: Regular rate and rhythm, normal S1 and S2, no murmurs, rubs or gallops, peripheral pulses normal and equal bilaterally. ABDOMEN: Soft, nontender, normoactive bowel sounds. No guarding, no rebound. No masses EXTREMITIES : Normal inspection, Normal range of motion, no edema. No clubbing or cyanosis. NEUROLOGICAL: intoxicated and lethargic SKIN: Warm, Dry, normal turgor, no rashes or lesions noted <Harper Mckeon - Last Filed: 06/13/18 22:52> Moderate Sedation - Procedure Monitoring Vital Signs: Procedure Monitoring Vital Signs Temperature 97.9 F 06/10/18 17:05 Pulse Rate 96 H 06/10/18 17:05 Respiratory Rate 18 06/10/18 17:05 Blood Pressure 112/79 06/10/18 17:05 O2 Sat by Pulse Oximetry (%) 96 06/10/18 17:05 <Richard Ulrich - Last Filed: 06/11/18 04:26> - Procedure Monitoring Vital Signs: Procedure Monitoring Vital Signs Temperature 97.9 F 06/10/18 17:05 Pulse Rate 96 H 06/10/18 17:05 Respiratory Rate 18 06/10/18 17:05 Blood Pressure 112/79 06/10/18 17:05 O2 Sat by Pulse Oximetry (%) 96 06/10/18 17:05 <Harper Mckeon - Last Filed: 06/13/18 22:52> Medical Decision Making - Medical Decision Making 06/10/18 20:26 63-year-old male, with a past medical history of HTN, mesothelioma, alcohol abuse, who presents to the ED after being found in park intoxicated. The patient admits to drinking 6 cups of vodka, but denies falling or hitting his head. He has no other complaints and is intoxicated at bedside. He denies back pain, extremity pain or injury, abdominal pain, chest pain or shortness of breath. ED Course: Patient presents intoxicated without traumatic history prior to arrival. Will observe patient for metabolism to freedom. Patient signed over to attending Dr. Ulrich. <Harper Mckeon - Last Filed: 06/13/18 22:52> *DC/Admit/Observation/Transfer - Discharge Dispostion Decision to Admit order: No <Richard Ulrich - Last Filed: 06/11/18 04:26> <Harper Mckeon - Last Filed: 06/13/18 22:52> Diagnosis at time of Disposition: Intoxication - Discharge Dispostion Disposition: HOME Condition at time of disposition: Improved - Patient Instructions Printed Discharge Instructions: DI for Alcohol Abuse Additional Instructions: dont drink alcohol
--- NOTE | 2018-06-11 04:12 | PDOC ---
Attending Attestation - Resident Resident Name: Harper Mckeon - ED Attending Attestation I have performed the following: I have examined & evaluated the patient, The case was reviewed & discussed with the resident, I agree w/resident's findings & plan, Exceptions are as noted - HPI HPI: 06/11/18 04:12 63y M well known to myself and this ED presents with intoxication - Physicial Exam PE: 06/11/18 04:13 atraumatic scalp no acute distress - Medical Decision Making 06/11/18 05:58 pt awake will dc the pt home
[2018-06-11] MEDS ORDERED: CYCLOBENZAPRINE HCL 5 MG TABLET PO SCH (10:00)
== END 2018-06-11 06:59 | disposition home or self-care (01) ==
LOC: JER 17:02
DX: F10.220 Alcohol dependence with intoxication, uncomplicated (principal); I10 Essential (primary) hypertension; C45.9 Mesothelioma, unspecified; Z59.0 Homelessness; Z91.013 Allergy to seafood
CPT/HCPCS: 99282-25

== ENCOUNTER 2018-06-13 22:14 | Inpatient (IN) | payer OTHER ==
--- NOTE | 2018-06-13 23:19 | PDOC ---
History of Present Illness - General Chief Complaint: Pain, Acute Stated Complaint: RIGHT ARM PAIN Time Seen by Provider: 06/13/18 23:18 History Source: Patient - History of Present Illness Initial Comments: 06/13/18 23:20 "The patient is a 63-year-old male, with a past medical history of HTN, mesothelioma, alcohol abuse, who presents to the ED c/o R arm pain. Patient states he fell outside 2-3 days previous and hurt his arm. Unsure if he hit his head. Patient is actively intoxicated, and notes he drank two pints of vodka prior to presentation to our ED. He denies any recent fevers, chills, headache or dizziness. He denies any recent nausea, vomit, diarrhea or constipation. He denies any recent chest pain or shortness of breath. He denies any recent dysuria, frequency, urgency or hematuria. Allergies: fish containing products. Past Social History: None reported. Past Surgical History: None reported. Past History - Past Medical History Allergies/Adverse Reactions: Allergies Allergy/AdvReac Type Severity Reaction Status Date / Time Fish Containing Products Allergy Mild Swelling Verified 06/13/18 23:15 No Known Drug Allergies Allergy Verified 06/13/18 23:15 Home Medications: Ambulatory Orders Acetaminophen [Tylenol .Regular Strength -] 650 mg PO Q6H PRN tablet 06/04/18 Amlodipine Besylate [Norvasc -] 5 mg PO DAILY tablet 06/04/18 Ferrous Sulfate [Feosol] 325 mg PO BID ud 06/04/18 Folic Acid - 1 mg PO DAILY tablet 06/04/18 Heparin - 5,000 unit SQ TID vial 06/04/18 Pantoprazole Sodium [Protonix -] 40 mg PO DAILY tablet.ec 06/04/18 Thiamine HCl [Vitamin B1 -] 100 mg PO DAILY tablet 06/04/18 Anemia: No Asthma: No Cancer: Yes (mesothelioma) Cardiac Disorders: No CVA: No COPD: No CHF: No DVT: No Dementia: No Diabetes: No GI Disorders: No Disorders: No HTN: Yes (non compliance) Hypercholesterolemia: No Kidney Stones: No Liver Disease: No Psychiatric Problems: Yes (alcoholism) Seizures: No Thyroid Disease: No - Surgical History Abdominal Surgery: No Appendectomy: No Cardiac Surgery: No Cholecystectomy: No Lung Surgery: No Neurologic Surgery: No Orthopedic Surgery: No - Family Disease History Family Disease History: CA: Mother - Reproductive History Testicular Surgery: No - Immunization History TDAP Vaccination: Yes Immunization Up to Date: Yes - Suicide/Smoking/Psychosocial Hx Smoking Status: No Smoking History: Never smoked Have you smoked in the past 12 months: No Number of Cigarettes Smoked Daily: 5 If you are a former smoker, when did you quit?: 0 Cigars Per Day: 0 Information on smoking cessation initiated: No 'Breaking Loose' booklet given: 09/22/17 Hx Alcohol Use: No Drug/Substance Use Hx: No Substance Use Type: Alcohol Hx Substance Use Treatment: Yes ([facility] 02/08/18to 02/12/18) Review of Systems - Review of Systems Able to Perform ROS?: No (actively intoxicated) *Physical Exam - Vital Signs Last Vital Signs Temp Pulse Resp BP Pulse Ox 97.5 F L 88 22 H 135/83 100 06/13/18 22:15 06/13/18 22:15 06/13/18 22:15 06/13/18 22:15 06/13/18 22:15 - Physical Exam Comments: 06/13/18 23:55 Alert, verbal, moves all 4 extremities General Appearance: Yes: Nourished, Disheveled, Alcohol on Breath HEENT: positive: Normal Voice, TMs Normal, Hearing Grossly Normal, Other (no mastoid ecchymosis, no periorbital ecchymosis) Neck: positive: Trachea midline, Supple Respiratory/Chest: positive: Lungs Clear, Normal Breath Sounds Cardiovascular: positive: S1, S2 Gastrointestinal/Abdominal: positive: Soft. negative: Tender Musculoskeletal: positive: Other (No C-spine, No L/T/S midline spinal tenderness ) Extremity: positive: Normal Capillary Refill, Normal Inspection, Other (RUE pain with ROM, 2+ radial pulse, NVI, anterior/posterior shoulder pain) Integumentary: positive: Normal Color, Dry, Warm Neurologic: positive: Fully Oriented, Alert Moderate Sedation - Procedure Monitoring Vital Signs: Procedure Monitoring Vital Signs Temperature 97.5 F L 06/13/18 22:15 Pulse Rate 88 06/13/18 22:15 Respiratory Rate 22 H 06/13/18 22:15 Blood Pressure 135/83 06/13/18 22:15 O2 Sat by Pulse Oximetry (%) 100 06/13/18 22:15 Medical Decision Making - Medical Decision Making 06/13/18 23:30 63 year old male presents s/p fall c/o RUE pain. Mildly tachypneic (RR 22) actively intoxicated @ presentation. RUE is NVI however pain with ranging extremity. Will X-ray R shoulder, humerus, forearm, wrist. Patient declines pain medication. Reassess. 06/13/18 23:57 Patient signed out to Dr. Mckeon (Resident) and Dr. Kumar (Attending) X-rays pending Patient resting comfortably *DC/Admit/Observation/Transfer Diagnosis at time of Disposition: Fall - Referrals - Patient Instructions - Post Discharge Activity
--- NOTE | 2018-06-13 23:22 | PDOC ---
Attending Attestation - Resident Resident Name: SteveLigia - ED Attending Attestation I have performed the following: I have examined & evaluated the patient, The case was reviewed & discussed with the resident, I agree w/resident's findings & plan - HPI HPI: 06/13/18 23:37 Pt comes for right arm pain. - Physicial Exam PE: 06/14/18 00:31 Agree with resident exam - Medical Decision Making 06/14/18 02:48 Referring Physician: KATHI WALLACE Patient Name: MANUEL GUERRA THIS IS A PRELIMINARY REPORT FROM [facility] DATE OF SERVICE: 2018-06-14 01:40:24 IMAGES: [id number] EXAM: CT right shoulder HISTORY: Rule out fracture COMPARISON: None. FINDINGS: Positive for acute fracture of the right humeral head. Multiple fragments are noted. The head is impacted on the shaft. The shaft is also displaced slightly laterally relative to the head. No dislocation. There is also lucency through the inferior margin of the glenoid. This could represent a fracture as well but is of indeterminate age. Note made of multiple old or healing right rib fractures. There is also a large lucency through the anterior aspect of the T12 vertebral body. This looks like a fracture but it is of indeterminate age. Correlate with pain in this area. One or more of the following dose reduction techniques were used: automated exposure control, adjustment of the mA and/or kV according to patient size, use of iterative reconstructive technique. THIS DOCUMENT HAS BEEN ELECTRONICALLY SIGNED 06/14/18 03:37 Pt had a humeral neck issue on 05/31, but at that time the entire humeral head was NOT shattered. Given the fact that the shattered bone is in the glenoid joint, we will admit for pain control and Ortho sales and operations trainee's evaluation. Pt has no private docs and he sees whoever is sales and operations trainee today it is Dr. Hernandez/Stefani
--- NOTE | 2018-06-14 00:35 | PDOC ---
*Physical Exam - Vital Signs Last Vital Signs Temp Pulse Resp BP Pulse Ox 97.5 F L 88 22 H 135/83 100 06/13/18 22:15 06/13/18 22:15 06/13/18 22:15 06/13/18 22:15 06/13/18 22:15 ED Treatment Course - LABORATORY CBC & Chemistry Diagram: 06/15/18 06:30 06/16/18 06:30 Medical Decision Making - Medical Decision Making 06/14/18 00:49 Pt signed out by resident Dr. Wilson In short patient with history of alcohol abuse, mesothelioma and HTN presents after fall and complaining of R arm pain. ED Course: R shoulder XR with comminuted humeral head fx percocet given as patient repeatedly complaining of pain. Ortho contacted, shoulder immobilization, R shoulder CT. Per chart review and discussion with ortho patient's fx occurred 2 weeks ago and was evaluated by [facility] but never followed up. Patient to have shoulder immobilizer and CT to assess if pt is surgical candidate. 06/14/18 02:28 Patient reassessed, will monitor, and pain control. 06/14/18 02:53 Patient's imaging reviewed by this lyric writer and attending with significant changes in the R humeral head over 2 weeks. Considering patient did not follow up and now with comminute of the fracture. Will plan to admit for ortho evaluation and possible surgery. Patient admitted to medicine for further workup and evaluation. *DC/Admit/Observation/Transfer Diagnosis at time of Disposition: Humeral head fracture - Discharge Dispostion Disposition: AGAINST MEDICAL ADVICE Condition at time of disposition: Stable Decision to Admit order: Yes - Referrals - Patient Instructions - Post Discharge Activity
[2018-06-14 04:39] LABS: BASO % 1.5 % (0-2.0); EOS % 4.3 % (0-4.5); HEMATOCRIT 28.6 % (35.4-49); HEMOGLOBIN 8.8 GM/dL (11.7-16.9); LYMPH % 32.6 % (8-40); MCH 23.9 pg (25.7-33.7); MCHC 30.6 g/dl (32.0-35.9); MEAN CELL VOLUME 78.2 fl (80-96); MEAN PLT VOLUME 7.1 fl (7.5-11.1); MONO % 8.7 % (3.8-10.2); NEUT % 52.9 % (42.8-82.8); PLATELET COUNT 415 K/MM3 (134-434); RBC 3.66 M/mm3 (4.00-5.60); WHITE BLOOD COUNT 5.3 K/mm3 (4.0-10.0)
[2018-06-14 04:55] LABS: INR 1.09 (0.83-1.09); PROTHROMBIN TIME (PATIENT) 12.9 SEC (9.7-13.0)
[2018-06-14 04:58] LABS: ACTIVATED PTT 26.2 SECONDS (25.2-36.5)
[2018-06-14 05:29] LABS: ALBUMIN 2.8 g/dl (3.4-5.0); ALK PHOS 149 U/L (45-117); ANION GAP 12 MMOL/L (8-16); BILIRUBIN,TOTAL 0.3 mg/dL (0.2-1); BLOOD UREA NITROGEN 7 mg/dL (7-18); CALCIUM 8.7 mg/dL (8.5-10.1); CHLORIDE 104 mmol/L (98-107); CO2 28 mmol/L (21-32); CREATININE 0.5 mg/dL (0.55-1.3); GLUCOSE,RANDOM 89 mg/dL (74-106); SGOT/AST 27 U/L (15-37); SGPT/ALT 21 U/L (13-61); SODIUM 144 mmol/L (136-145); TOT PROT 6.1 g/dl (6.4-8.2)
[2018-06-14 06:00] LABS: ANISOCYTOSIS 2+; MACROCYTOSIS 1+; PLATELET ESTIMATE NORMAL
--- NOTE | 2018-06-14 08:27 | PDOC ---
*Physical Exam - Vital Signs Last Vital Signs Temp Pulse Resp BP Pulse Ox 97.5 F L 80 20 132/80 98 06/13/18 22:15 06/14/18 06:43 06/14/18 06:43 06/14/18 06:43 06/14/18 06:43 ED Treatment Course - LABORATORY CBC & Chemistry Diagram: 06/14/18 04:28 06/14/18 04:28 - ADDITIONAL ORDERS Additional order review: Laboratory Results 06/14/18 03:09 Blood Type O POSITIVE Antibody Screen Negative - Medications Given in the ED: ED Medications Discontinued Medications Generic Name Dose Route Start Last Admin Trade Name Freq PRN Reason Stop Dose Admin Oxycodone/Acetaminophen 2 combo 06/14/18 00:33 06/14/18 00:55 Percocet 5/325 - PO 06/14/18 00:34 2 combo ONCE ONE Administration Medical Decision Making - Medical Decision Making 06/14/18 08:22 Pt signed out by Dr[address] Kumar as admitted for humeral head fracture. Day medicine team is stating that the patient was not accepted for admission last night, and they are denying admission, since ortho has said that the patient does not require surgical intervention. The fracture has become worse since his initial visit on 05/31, since patient continues to drink and is not wearing his sling. I feel that the patient requires admission to short term rehab to prevent significant morbidity from worsening of his fracture. Will turn over to the day team for admission for placement. Patient is agreeable to admission for placement. *DC/Admit/Observation/Transfer Diagnosis at time of Disposition: Humeral head fracture - Discharge Dispostion Condition at time of disposition: Fair - Referrals - Patient Instructions - Post Discharge Activity
--- NOTE | 2018-06-14 08:51 | CON.ORTH ---
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 History of Recent Travel: No Home Medications - Allergies Allergies/Adverse Reactions: Allergies Allergy/AdvReac Type Severity Reaction Status Date / Time Fish Containing Products Allergy Mild Swelling Verified 06/13/18 23:15 No Known Drug Allergies Allergy Verified 06/13/18 23:15 - Home Medications Home Medications: Ambulatory Orders Amlodipine Besylate [Norvasc -] 5 mg PO DAILY tablet 06/04/18 Folic Acid - 1 mg PO DAILY tablet 06/04/18 Pantoprazole Sodium [Protonix -] 40 mg PO DAILY tablet.ec 06/04/18 Thiamine HCl [Vitamin B1 -] 100 mg PO DAILY tablet 06/04/18 Family Disease History - Family Disease History Family Disease History: CA: Mother (), Brother (Colon CA), Other: Grandparent (ALCOHOLISM), Father (ALCOHOL,), Son () Physical Exam for Ortho Vital Signs: Vital Signs Temperature 97.5 F L 06/13/18 22:15 Pulse Rate 80 06/14/18 06:43 Respiratory Rate 20 06/14/18 06:43 Blood Pressure 132/80 06/14/18 06:43 O2 Sat by Pulse Oximetry (%) 98 06/14/18 06:43 Labs: CBC, BMP 06/14/18 04:28 06/14/18 04:28 INR, PTT INR 1.09 (0.83-1.09) 06/14/18 04:28 - Upper Extremity Shoulder: Yes: Right, Limited ROM, Pain, Swelling, Tenderness, Other (nvi) Imaging - Results X-ray: Report Reviewed, Image Reviewed Cat Scan: Report Reviewed, Image Reviewed Assessment/Plan 63-year-old male, with a past medical history of HTN, mesothelioma, alcohol abuse, who presents to the ED c/o R arm pain. Patient states he fell outside 2- 3 days previous and hurt his arm. Unsure if he hit his head. Patient is actively intoxicated, and notes he drank two pints of vodka prior to presentation to our ED. He denies any recent fevers, chills, headache or dizziness. He denies any recent nausea, vomit, diarrhea or constipation. He denies any recent chest pain or shortness of breath. He denies any recent dysuria, frequency, urgency or hematuria. Pt had been admitted 2 weeks ago for same injury. a/p- right proximal humerus fx- comminuted, impacted and more displaced since previous visit No surgical intervention at this time Pt is not a good surgical candidate and fx is in acceptable position shoulder immobilizer, NWB RUE elevate HOB to 60 deg ice discussed in detail with Dr. Munguia
[2018-06-14] MEDS ORDERED: ACETAMINOPHEN 650 MG/20.3 ML ORAL SOLUTION (CUPS) PO ONE (09:52)
[2018-06-14] MEDS ORDERED: FOLIC ACID INJECTION - 1 MG, THIAMINE HCL 100 MG, MULTIVIT INJECTION ADULT 10 ML in SOD... IVPB ONE (09:52)
[2018-06-14] MEDS ORDERED: PANTOPRAZOLE 40 MG TABLET (FP) PO ONE (09:55)
--- NOTE | 2018-06-14 11:08 | HP ---
CHIEF COMPLAINT: right arm pain PCP:None HISTORY OF PRESENT ILLNESS: History is taken from medical documentation. The patient refused to talk to me, wants to be left alone and sleep. He agreed to stay in the hospital today but doesn't want to go to Rehab. He is a 63 year male with a PMH of HTN, mesothelioma, alcohol abuse with multiple ED visits for EtOH intoxication, multiple rib fractures in the past, left humerus complicated with DVT, never on AC, who presented to the ED once again for EtOH intoxication and right arm pain, s/p fall. The patient was seen by Ortho-Dr Yusuf 2 weeks ago and was not a candidate for surgery. He was discharged with splint and recommendation to f/u with orthopedic surgeon as outpatient. He never f/u with Dr Yusuf and presented last night to ED after he fell again and had right arm pain. The patient is homeless and doesn't take any medications. ER course was notable for: (1)x ray: hand/wrist/humerus/shoulder/forearm (2)Ct upper extremity (3)percoocet PAST MEDICAL HISTORY: as above PAST SURGICAL HISTORY: no Social History: Smoking:n/a Alcohol:yes Drugs: n/a Family History: n/a Allergies Fish Containing Products Allergy (Mild, Verified 06/13/18 23:15) Swelling No Known Drug Allergies Allergy (Verified 06/13/18 23:15) HOME MEDICATIONS: Home Medications Medication Instructions Recorded Amlodipine Besylate [Norvasc -] 5 mg PO DAILY tablet 06/04/18 Folic Acid - 1 mg PO DAILY tablet 06/04/18 Pantoprazole Sodium [Protonix -] 40 mg PO DAILY tablet.ec 06/04/18 Thiamine HCl [Vitamin B1 -] 100 mg PO DAILY tablet 06/04/18 REVIEW OF SYSTEMS N/A PHYSICAL EXAMINATION Vital Signs - 24 hr 06/13/18 06/14/18 06/14/18 22:15 03:21 06:43 Temperature 97.5 F L Pulse Rate 88 Pulse Rate [ 80 Right] Respiratory 22 H 20 Rate Blood Pressure 135/83 Blood Pressure 132/80 [Left Arm] O2 Sat by Pulse 100 98 98 Oximetry (%) Physical exam: N/a The patient refused Laboratory Results - last 24 hr 06/14/18 06/14/18 06/14/18 03:09 04:28 04:28 WBC 5.3 RBC 3.66 L Hgb 8.8 L Hct 28.6 L MCV 78.2 L MCH 23.9 L MCHC 30.6 L RDW 22.0 H Plt Count 415 D MPV 7.1 L D Absolute Neuts (auto) 2.8 Neutrophils % 52.9 D Lymphocytes % 32.6 D Monocytes % 8.7 Eosinophils % 4.3 Basophils % 1.5 Nucleated RBC % 0 Hypochromia 3+ Platelet Estimate Normal Polychromasia 1+ Poikilocytosis 1+ Anisocytosis 2+ Microcytosis 2+ Macrocytosis 1+ Stomatocytes 1+ PT with INR 12.90 INR 1.09 PTT (Actin FS) 26.2 Sodium Potassium Chloride Carbon Dioxide Anion Gap BUN Creatinine Creat Clearance w eGFR Random Glucose Calcium Total Bilirubin AST ALT Alkaline Phosphatase Total Protein Albumin Alcohol, Quantitative Blood Type O POSITIVE Antibody Screen Negative 06/14/18 04:28 WBC RBC Hgb Hct MCV MCH MCHC RDW Plt Count MPV Absolute Neuts (auto) Neutrophils % Lymphocytes % Monocytes % Eosinophils % Basophils % Nucleated RBC % Hypochromia Platelet Estimate Polychromasia Poikilocytosis Anisocytosis Microcytosis Macrocytosis Stomatocytes PT with INR INR PTT (Actin FS) Sodium 144 Potassium 3.0 L Chloride 104 Carbon Dioxide 28 Anion Gap 12 BUN 7 Creatinine 0.5 L Creat Clearance w eGFR > 60 Random Glucose 89 Calcium 8.7 Total Bilirubin 0.3 AST 27 ALT 21 Alkaline Phosphatase 149 H Total Protein 6.1 L Albumin 2.8 L Alcohol, Quantitative 144.7 H Blood Type Antibody Screen ASSESSMENT/PLAN: 63 year male with a PMH of HTN, mesothelioma, alcohol abuse with multiple ED visits for EtOH intoxication who presented to the ED once again for EtOH intoxication and right arm pain, s/p fall. S/p fall with humeral fracture: -Orthopedic surgery consulted, spoke to Dr Bell who reviewed CT results and recommended splint, no surgery indicated. He was also seen by Sean Baxter. We will follow recommendations -Tylenol PO Alcohol intoxication: -counseling provided -Banana bag ordered -Thiamine, Folic acid PO -Ativan when signs of withdrawal Hypertension: -controlled in ED, given Nitrostat ONCE -resumed Norvasc 10 mg starting tomorrow in AM GERD: -continue Protonix 40 mg daily Anemia: -likely due to alcohol abuse -Hgb 8.8 today Hypokalemia: -K 3.0 -given KCl PO, banana bag Hypomagnesemia: -1.2, repleated, f/u in AM DVT PPX: -Heparin sq F/E/N: banana bag/low K, Mg/low Na Dispo: med surg, waiting for rehab placement Problem List - Problem (1) Fall Code(s): W19.XXXA - UNSPECIFIED FALL, INITIAL ENCOUNTER (2) Humeral head fracture Code(s): S42.293A - OTH DISP FX OF UPPER END OF UNSP HUMERUS, INIT FOR CLOS FX (3) Abuse, drug or alcohol Code(s): F19.10 - OTHER PSYCHOACTIVE SUBSTANCE ABUSE, UNCOMPLICATED Visit type - Emergency Visit Emergency Visit: Yes ED Registration Date: 06/14/18 Care time: The patient presented to the Emergency Department on the above date and was hospitalized for further evaluation of their emergent condition. - New Patient This patient is new to me today: No - Critical Care Critical Care patient: No
[2018-06-14] MEDS ORDERED: POTASSIUM CHLORIDE ORAL LIQUID 20 MEQ/15 ML PO ONE (11:10)
[2018-06-14 11:59] LABS: MAGNESIUM 1.2 mg/dL (1.8-2.4); PHOSPHOROUS 3.7 mg/dL (2.5-4.9)
[2018-06-14] MEDS ORDERED: MAGNESIUM SULF 50% (8.12 MEQ/2 ML-1 GM VIAL) IVPB ONE (13:00)
[2018-06-14] MEDS: PANTOPRAZOLE 40 MG TABLET (FP) PO SCH (13:03)
[2018-06-14] MEDS: HEPARIN NA (PORCINE) 5,000 UNITS/ML 1ML VIAL SQ SCH ×2 (14:02→21:56)
--- NOTE | 2018-06-14 15:59 | PN ---
Teaching Attending Note Name of Resident: Heydi Constantino ATTENDING PHYSICIAN STATEMENT I saw and evaluated the patient. I reviewed the resident's note and discussed the case with the resident. I agree with the resident's findings and plan as documented. SUBJECTIVE: CC: pain in RUE. HPI: 63 /o man with h/o HTN, iron def anemia , alcohol abuse, recent admission for RYE fx. he presented for worsening pain in RUE. patient refused to provide details or answer other questions but he denied another fall. he has pain . In ER a CT of his RUE was done and showed comminuted impacted R humerus Fx with joint effusion. patient is admitted for pain mgt and for rehab arrangement OBJECTIVE: NAD. disheveled man . Dry MM. mouth breather . Cv: RRR, no MRG Lungs: CTAB anteriorly and on sides. refuses to move Abd: obese, soft, NT, Nd , Nl BS. Ext: no edema over LE . RUE in a sling. RP 2+ . 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 limited rest of the exam due to poor participation A/p : 63 /o man with h/o HTN, iron def anemia , alcohol abuse, recent admission for RYE fx. he presented for worsening pain in RUE. patient refused to provide details or answer other questions but he denied another fall. he has pain . 1-R Upper ext Fx. - seen by sx. No intervention - tylenol for pain . - sling. 2- Alcohol dependence. no signs of withdrawal - if he starts showing withdrawal signs, can give ativan per CIWA - give I thiamine to avoid Wernicke's - replete electrlytes. - folate and po thiamine 3- HTn: norvasc 4- Iorn def anemia: iron supplements Dispo : pt is willing to go to rehab.
[2018-06-14] MEDS ORDERED: LORazepam 1 MG TABLET PO PRN (16:24)
[2018-06-14 18:50] VITALS: BMI 33.5
[2018-06-14] MEDS: ACETAMINOPHEN 325 MG TABLET (FP) PO PRN (18:58)
[2018-06-14] MEDS ORDERED: chlordiazePOXIDE HCL 25 MG CAPSULE PO SCH (23:00)
[2018-06-15] MEDS: HEPARIN NA (PORCINE) 5,000 UNITS/ML 1ML VIAL SQ SCH ×3 (06:02→21:20)
[2018-06-15 07:30] LABS: EOS % 3.5 % (0-4.5); HEMATOCRIT 28.4 % (35.4-49); HEMOGLOBIN 8.7 GM/dL (11.7-16.9); LYMPH % 19.1 % (8-40); MCHC 30.6 g/dl (32.0-35.9); MEAN CELL VOLUME 78.2 fl (80-96); MEAN PLT VOLUME 7.5 fl (7.5-11.1); MONO % 8.2 % (3.8-10.2); NEUT % 68.2 % (42.8-82.8); PLATELET COUNT 396 K/MM3 (134-434); RBC 3.64 M/mm3 (4.00-5.60); RDW 22.2 % (11.9-15.9)
[2018-06-15 07:53] LABS: ALBUMIN 2.8 g/dl (3.4-5.0); ALK PHOS 151 U/L (45-117); ANION GAP 9 MMOL/L (8-16); BILIRUBIN,TOTAL 0.6 mg/dL (0.2-1); BLOOD UREA NITROGEN 7 mg/dL (7-18); CALCIUM 7.9 mg/dL (8.5-10.1); CHLORIDE 102 mmol/L (98-107); CO2 28 mmol/L (21-32); CREATININE 0.5 mg/dL (0.55-1.3); GLUCOSE,RANDOM 82 mg/dL (74-106); MAGNESIUM 1.4 mg/dL (1.8-2.4); PHOSPHOROUS 3.4 mg/dL (2.5-4.9); POTASSIUM 3.1 mmol/L (3.5-5.1); SGOT/AST 21 U/L (15-37); SGPT/ALT 17 U/L (13-61); SODIUM 139 mmol/L (136-145); TOT PROT 5.7 g/dl (6.4-8.2)
[2018-06-15] MEDS ORDERED: amLODIPine BESYLATE 5 MG TABLET (FP) PO SCH (10:00)
[2018-06-15] MEDS: THIAMINE HCL 100 MG TABLET (FP) PO SCH (10:08)
[2018-06-15] MEDS: POTASSIUM CHLORIDE TABS 20 MEQ TABLET.ER (FP) PO ONE ×2 (10:08→10:13)
[2018-06-15] MEDS: PANTOPRAZOLE 40 MG TABLET (FP) PO SCH (10:08)
[2018-06-15] MEDS: FOLIC ACID 1 MG TABLET (FP) PO SCH (10:09)
[2018-06-15] MEDS ORDERED: MAGNESIUM OXIDE 400 MG TABLET (FP) PO ONE (15:45)
[2018-06-15] MEDS ORDERED: amLODIPine BESYLATE 10 MG TABLET (FP) PO SCH (15:52)
--- NOTE | 2018-06-15 15:52 | PN ---
Progress Note (short form) - Note Progress Note: Subjective: No fever or chills. has pain in R upper extremity . refused his po K . refused sling. became loud and inappropriate and declined interview and exam. Objective: Vital Signs: Last Vital Signs Temp Pulse Resp BP Pulse Ox 99.0 F 91 H 22 H 160/95 94 L 06/15/18 13:41 06/15/18 13:41 06/15/18 13:41 06/15/18 13:41 06/15/18 08:00 Physical Exam: declined A/p: 63 /o man with h/o HTN, iron def anemia , alcohol abuse, recent admission for RYE fx. he presented for worsening pain in RUE. patient refused to provide details or answer other questions but he denied another fall. he has pain . 1-R Upper ext Fx. - seen by sx. No intervention - tylenol for pain . - refusing sling 2- Alcohol dependence. no signs of withdrawal - if he starts showing withdrawal signs, can give ativan per CIWA - thiamine and folate - replete K, Mg 3- HTn: increase Norvasc to 10 mg daiy 4- Iorn def anemia: iron supplements Dispo : pt is willing to go to rehab. appreciate social work help Visit type - Emergency Visit Emergency Visit: Yes ED Registration Date: 06/14/18 Care time: The patient presented to the Emergency Department on the above date and was hospitalized for further evaluation of their emergent condition. - New Patient This patient is new to me today: No - Critical Care Critical Care patient: No
[2018-06-15] MEDS: ACETAMINOPHEN 325 MG TABLET (FP) PO PRN (20:00)
[2018-06-15] MEDS ORDERED: chlordiazePOXIDE HCL 25 MG CAPSULE PO SCH (23:00)
[2018-06-16] MEDS: HEPARIN NA (PORCINE) 5,000 UNITS/ML 1ML VIAL SQ SCH (06:15)
[2018-06-16 06:45] VITALS: PULSE 84
[2018-06-16 07:45] LABS: MAGNESIUM 1.6 mg/dL (1.8-2.4); PHOSPHOROUS 3.4 mg/dL (2.5-4.9); POTASSIUM 3.4 mmol/L (3.5-5.1)
[2018-06-16] MEDS ORDERED: POTASSIUM CHLORIDE TABS 20 MEQ TABLET.ER (FP) PO ONE (09:15)
[2018-06-16] MEDS ORDERED: MAGNESIUM OXIDE 400 MG TABLET (FP) PO ONE (09:15)
[2018-06-16] MEDS: PANTOPRAZOLE 40 MG TABLET (FP) PO SCH (10:07)
[2018-06-16] MEDS: FOLIC ACID 1 MG TABLET (FP) PO SCH (10:07)
[2018-06-16] MEDS: THIAMINE HCL 100 MG TABLET (FP) PO SCH (10:07)
[2018-06-16 12:33] VITALS: BP 152/93; TEMP 98.2
--- NOTE | 2018-06-16 15:31 | DS ---
Physical Exam: SUBJECTIVE: Patient seen and examined at bedside this morning. No acute events overnight. Patient has no new complaints and just wants to go home. At around noon, as per nursing, patient wanted to sign out AMA. When resident came to see him, patient was gone. OBJECTIVE: Vital Signs Period Temp Pulse Resp BP Sys/Jang Pulse Ox Last 24 Hr 98.2 F-99.7 F 84-86 20-22 152-175/93-99 95-95 PHYSICAL EXAM GENERAL: The patient is awake, alert, and fully oriented, in no acute distress. HEAD: Normal with no signs of trauma. EYES: PERRL, extraocular movements intact, sclera anicteric, conjunctiva clear. ENT: Ears normal, nares patent, oropharynx clear without exudates, moist mucous membranes. NECK: Trachea midline, full range of motion, supple. LUNGS: Breath sounds equal, clear to auscultation bilaterally, no wheezes, no crackles, no accessory muscle use. HEART: Regular rate and rhythm, S1, S2 without murmur, rub or gallop. ABDOMEN: Soft, nontender, nondistended, normoactive bowel sounds, no guarding, no rebound, no hepatosplenomegaly, no masses. EXTREMITIES: 2+ pulses, warm, well-perfused, no edema. NEUROLOGICAL: Cranial nerves II through XII grossly intact. Normal speech, gait not observed. PSYCH: Normal mood, normal affect. SKIN: Warm, dry, normal turgor, no rashes or lesions noted. LABS Laboratory Results - last 24 hr 06/16/18 06:30 Potassium 3.4 L Phosphorus 3.4 Magnesium 1.6 L HOSPITAL COURSE: Date of Admission:06/14/18 Date of Discharge: 06/16/18 Patient is a 63 year old homeless man with past medical history of HTN, ? mesothelioma, EtOH abuse, and with known history of multiple ED visits for alcohol intoxication, was admitted because of pain from the right humeral fracture after a fall a few weeks ago. Ortho was consulted and no surgical intervention was recommended. Recommended to keep right shoulder immobilized with a sling. Patient was about to be sent home to go back to [facility] but patient eloped prior to formal discharge. Minutes to complete discharge: 40 Discharge Summary Reason For Visit: FRACTURE OF HEAL OF HUMERUS Condition: Stable - Instructions Diet, Activity, Other Instructions: Your visit You were in the hospital because you fell and fractured your right shoulder. You were evaluated by an orthopedic doctor who recommended you wear a sling and keep your right shoulder immobilized for at least six weeks. Medications Continue your home medications as prescribed. Care It is very important that you completely stop drinking alcohol. Continuing to drink can lead to worsening health problems including liver failure and even . Do not drive or operate heavy machinery until you are seen by your doctor. Follow-up Please follow up with the following doctors: -orthopedic surgeon (Dr. Yusuf) within 1 week period. -Please also follow-up with your primary care doctor within 1-2 weeks. Call the medical clinic at [phone] upon discharge to schedule a follow up appointment. Additional info Call 911 or go to the ED if with any worsening shoulder pain, weakness or numbness of your arms, chest pain or shortness of breath. Referrals: [facility] [place] [Provider Group] - 1 Week John Yusuf MD [Staff Physician] - 1 Week Disposition: AGAINST MEDICAL ADVICE - Home Medications Comprehensive Discharge Medication List: Ambulatory Orders Folic Acid - 1 mg PO DAILY tablet 06/04/18 Pantoprazole Sodium [Protonix -] 40 mg PO DAILY tablet.ec 06/04/18 Thiamine HCl [Vitamin B1 -] 100 mg PO DAILY tablet 06/04/18 Amlodipine Besylate [Norvasc -] 10 mg PO DAILY tablet 06/16/18 This patient is new to me today: Yes Date on this admission: 06/18/18 Emergency Visit: Yes ED Registration Date: 06/14/18 Care time: The patient presented to the Emergency Department on the above date and was hospitalized for further evaluation of their emergent condition. Critical Care patient: No - Discharge Referral Referred to [facility] Med P.C.: No
--- NOTE | 2018-06-16 20:24 | PN ---
Teaching Attending Note Name of Resident: Bertha Anderson ATTENDING PHYSICIAN STATEMENT I saw and evaluated the patient. I reviewed the resident's note and discussed the case with the resident. I agree with the resident's findings and plan as documented. SUBJECTIVE: Patient refused to stay in the hospital. signed against medical advice. the risks were explained to him, fall, coma and . OBJECTIVE: Vital Signs Temperature 98.2 F 06/16/18 08:00 Pulse Rate 84 06/16/18 08:00 Respiratory Rate 20 06/16/18 08:00 Blood Pressure 152/93 06/16/18 08:00 O2 Sat by Pulse Oximetry (%) 95 06/16/18 08:00 GENERAL: The patient is awake, alert, and fully oriented, in no acute distress. HEAD: Normal with no signs of trauma. EYES: PERRL, extraocular movements intact, sclera anicteric, conjunctiva clear. ENT: Ears normal, oropharynx clear without exudates, moist mucous membranes. NECK: Trachea midline, full range of motion, supple. LUNGS: Breath sounds equal, clear to auscultation bilaterally, no wheezes, no crackles, no accessory muscle use. HEART: Regular rate and rhythm, S1, S2 without murmur, rub or gallop. ABDOMEN: Soft, nontender, nondistended, normoactive bowel sounds, no guarding, no rebound, no hepatosplenomegaly, no masses. EXTREMITIES: 2+ pulses, warm, well-perfused, no edema. NEUROLOGICAL: Cranial nerves II through XII grossly intact. Normal speech, gait is stable . PSYCH: Normal mood, normal affect. SKIN: Warm, dry, normal turgor, no rashes or lesions noted. CBCD WBC 7.0 K/mm3 (4.0-10.0) 06/15/18 06:30 RBC 3.64 M/mm3 (4.00-5.60) L 06/15/18 06:30 Hgb 8.7 GM/dL (11.7-16.9) L 06/15/18 06:30 Hct 28.4 % (35.4-49) L 06/15/18 06:30 MCV 78.2 fl (80-96) L 06/15/18 06:30 MCHC 30.6 g/dl (32.0-35.9) L 06/15/18 06:30 RDW 22.2 % (11.9-15.9) H 06/15/18 06:30 Plt Count 396 K/MM3 (134-434) 06/15/18 06:30 MPV 7.5 fl (7.5-11.1) 06/15/18 06:30 CMP Sodium 139 mmol/L (136-145) 06/15/18 06:30 Potassium 3.4 mmol/L (3.5-5.1) L 06/16/18 06:30 Chloride 102 mmol/L (98-107) 06/15/18 06:30 Carbon Dioxide 28 mmol/L (21-32) 06/15/18 06:30 Anion Gap 9 MMOL/L (8-16) 06/15/18 06:30 BUN 7 mg/dL (7-18) 06/15/18 06:30 Creatinine 0.5 mg/dL (0.55-1.3) L 06/15/18 06:30 Creat Clearance w eGFR > 60 (>60) 06/15/18 06:30 Random Glucose 82 mg/dL (74-106) 06/15/18 06:30 Calcium 7.9 mg/dL (8.5-10.1) L 06/15/18 06:30 Total Bilirubin 0.6 mg/dL (0.2-1) 06/15/18 06:30 AST 21 U/L (15-37) 06/15/18 06:30 ALT 17 U/L (13-61) 06/15/18 06:30 Alkaline Phosphatase 151 U/L (45-117) H 06/15/18 06:30 Total Protein 5.7 g/dl (6.4-8.2) L 06/15/18 06:30 Albumin 2.8 g/dl (3.4-5.0) L 06/15/18 06:30 Home Medications Medication Instructions Recorded Folic Acid - 1 mg PO DAILY tablet 06/04/18 Pantoprazole Sodium [Protonix -] 40 mg PO DAILY tablet.ec 06/04/18 Thiamine HCl [Vitamin B1 -] 100 mg PO DAILY tablet 06/04/18 Amlodipine Besylate [Norvasc -] 10 mg PO DAILY tablet 06/16/18 ASSESSMENT AND PLAN: Patient is a 63yo man with h/o HTN, iron def anemia , alcohol abuse, recent admission for RYE fx. he presented for worsening pain in RUE. #R Upper ext Fx. sling, and tylenol # Alcohol dependence. no signs of withdrawal, on folate and po thiamine # HTn: norvasc # Iorn def anemia: continue iron supplements pt refused to go to rehab. signed against medical advice , explained the risk of fall, another fx, infection,
[2018-06-16] MEDS ORDERED: chlordiazePOXIDE 5 MG CAPSULE PO SCH (23:00)
[2018-06-17] MEDS ORDERED: chlordiazePOXIDE HCL 10 MG CAPSULE PO SCH (23:00)
== END 2018-06-16 13:06 | disposition left against medical advice (07) | DRG 342 ==
LOC: JER 22:14 → JERBED 06-14 03:23 → J6S 06-14 18:05
PROVIDERS: ADMIT Internal Medicine; ATTEND Internal Medicine
PROC: 2W3AXYZ Immobilization of Right Upper Arm using Other Device (ICD-10-PCS; principal; 2018-06-14)
DX: S42.351A Displaced comminuted fracture of shaft of humerus, right arm, initial encounter for closed fracture (principal); E83.42 Hypomagnesemia; C45.9 Mesothelioma, unspecified; I10 Essential (primary) hypertension; F10.220 Alcohol dependence with intoxication, uncomplicated; D50.9 Iron deficiency anemia, unspecified; E87.6 Hypokalemia; M25.411 Effusion, right shoulder; M54.9 Dorsalgia, unspecified; K21.9 Gastro-esophageal reflux disease without esophagitis; Z91.19 Patient's noncompliance with other medical treatment and regimen; M54.5 Low back pain; X58.XXXA Exposure to other specified factors, initial encounter; Y93.89 Activity, other specified; Y92.89 Other specified places as the place of occurrence of the external cause; Y99.8 Other external cause status
CPT/HCPCS: 36415; 73030-TC-RT-FY; 73060-TC-RT-FY; 73090-TC-RT-FY; 73110-TC-RT-FY; 73130-TC-RT-FY; 73200-TC-RT; 80053; 80307; 83735; 84100; 84132; 85025; 85610; 85730; 86850; 86900; 86901; 99284-25; E0186; J1644; J7030

== ENCOUNTER 2018-06-17 22:32 | Emergency (ER) | payer OTHER ==
[2018-06-17 22:38] VITALS: BP 130/74; PULSE 92; TEMP 98.2; BMI 35.9
--- NOTE | 2018-06-18 02:08 | PDOC ---
History of Present Illness - General Chief Complaint: Alcohol intoxication Stated Complaint: INTOX Time Seen by Provider: 06/18/18 00:43 History Source: Patient Exam Limitations: Intoxication Past History - Past Medical History Allergies/Adverse Reactions: Allergies Allergy/AdvReac Type Severity Reaction Status Date / Time Fish Containing Products Allergy Mild Swelling Verified 06/17/18 22:38 No Known Drug Allergies Allergy Verified 06/17/18 22:38 Home Medications: Ambulatory Orders Folic Acid - 1 mg PO DAILY tablet 06/04/18 Pantoprazole Sodium [Protonix -] 40 mg PO DAILY tablet.ec 06/04/18 Thiamine HCl [Vitamin B1 -] 100 mg PO DAILY tablet 06/04/18 Amlodipine Besylate [Norvasc -] 10 mg PO DAILY tablet 06/16/18 Anemia: No Asthma: No Cancer: Yes (mesothelioma lung cancer) Cardiac Disorders: No CVA: No COPD: No CHF: No DVT: No Dementia: No Diabetes: No GI Disorders: No Disorders: No HTN: Yes (non compliance) Hypercholesterolemia: No Kidney Stones: No Liver Disease: No Psychiatric Problems: Yes (alcoholism) Seizures: No Thyroid Disease: No - Surgical History Abdominal Surgery: No Appendectomy: No Cardiac Surgery: No Cholecystectomy: No Lung Surgery: No Neurologic Surgery: No Orthopedic Surgery: No - Family Disease History Family Disease History: CA: Mother - Reproductive History Testicular Surgery: No - Immunization History TDAP Vaccination: Yes Immunization Up to Date: Yes - Suicide/Smoking/Psychosocial Hx Smoking Status: No Smoking History: Current every day smoker Have you smoked in the past 12 months: No Number of Cigarettes Smoked Daily: 5 If you are a former smoker, when did you quit?: 0 Cigars Per Day: 0 Information on smoking cessation initiated: No 'Breaking Loose' booklet given: 09/22/17 Hx Alcohol Use: Yes (lakeisha) Drug/Substance Use Hx: No Substance Use Type: Alcohol Hx Substance Use Treatment: No *Physical Exam - Vital Signs Last Vital Signs Temp Pulse Resp BP Pulse Ox 98.2 F 92 H 18 130/74 93 L 06/17/18 22:34 06/17/18 22:34 06/17/18 22:34 06/17/18 22:34 06/17/18 22:34 - Physical Exam General Appearance: Yes: Disheveled, Alcohol on Breath. No: Apparent Distress HEENT: positive: Other (No evidence of head trauma) Respiratory/Chest: negative: Respiratory Distress Musculoskeletal: positive: Other (No evidence of trauma) Neurologic: positive: Alert Moderate Sedation - Procedure Monitoring Vital Signs: Procedure Monitoring Vital Signs Temperature 98.2 F 06/17/18 22:34 Pulse Rate 92 H 06/17/18 22:34 Respiratory Rate 18 06/17/18 22:34 Blood Pressure 130/74 06/17/18 22:34 O2 Sat by Pulse Oximetry (%) 93 L 06/17/18 22:34 Medical Decision Making - Medical Decision Making 63 y/o M hx of alcohol abuse, mesothelioma, HT, R humerus fractures [place]IBEM[place] for alcohol intoxication[place] Currently, patient denies any complaints Alcohol intox: No evidence of any new trauma Will allow patient to sober up 06/18/18 02:07 Patient appears clinically sober Stable for d/c 06/18/18 06:11 *DC/Admit/Observation/Transfer Diagnosis at time of Disposition: Alcohol intoxication Qualifiers: Complication of substance-induced condition: uncomplicated Qualified Code(s): F10.920 - Alcohol use, unspecified with intoxication, uncomplicated - Discharge Dispostion Disposition: HOME Condition at time of disposition: Stable Decision to Admit order: No - Referrals - Patient Instructions Printed Discharge Instructions: DI for Alcohol Abuse - Post Discharge Activity
== END 2018-06-18 06:51 | disposition home or self-care (01) ==
LOC: JER 22:32
DX: F10.220 Alcohol dependence with intoxication, uncomplicated (principal); I10 Essential (primary) hypertension; C45.9 Mesothelioma, unspecified; Z87.81 Personal history of (healed) traumatic fracture; Z59.0 Homelessness
CPT/HCPCS: 99281-25

== ENCOUNTER 2018-06-21 12:31 | Emergency (ER) | payer OTHER ==
[2018-06-21 12:39] VITALS: BP 138/77; PULSE 83; TEMP 98.6; BMI 45.1
--- NOTE | 2018-06-21 15:45 | PDOC ---
Attending Attestation - Resident Resident Name: LindaHarper - ED Attending Attestation I have performed the following: I have examined & evaluated the patient, The case was reviewed & discussed with the resident, I agree w/resident's findings & plan - HPI HPI: 06/21/18 16:27 The patient is a 63 year old male, with a significant past medical history of recent admission for right humeral fracture, chronic back pain, alcoholism, HTN , and mesothelioma, who presents to the emergency department with, right wrist and hand pain with swelling. Patient was recently admitted for right humeral fracture pending transfer to rehab after stabilization at which time he signed out AMA. He denies any recent fevers, chills, headache or dizziness. He denies any recent nausea, vomit, diarrhea or constipation. He denies any recent chest pain or shortness of breath. He denies any recent dysuria, frequency, urgency or hematuria. Allergies: Fish containing products. Social History: Alcoholic. <Susu Gonzales - Last Filed: 06/21/18 16:27> - Physicial Exam PE: 06/21/18 16:56 06/21/18 16:58 06/21/18 17:14 06/21/18 17:14 Agree with resident exam. PAtient is alert and oriented x 3. + pain and tenderness to the dorsum of the hand. Neurovascularly intact. - Medical Decision Making 06/21/18 17:14 Pt presents to the ED complaining of increased pain in his R hand and arm. Denies new falls, but patient is chronic heavy drinker and may not be reliable. Patient has a known humerus fx, but refuses to wear sling. Plan at last visit was to admit him for placement, but he left AMA. <Nuris Smith - Last Filed: 06/21/18 17:15> Attestations - Attestations 06/21/18 16:28 Documentation prepared by Susu Gonzales, acting as medical records coder for Nuris Smith MD. <Susu Gonzales - Last Filed: 06/21/18 16:27>
[2018-06-21] MEDS ORDERED: IBUPROFEN 600 MG TABLET (FP) PO ONE ×2 (18:26→19:31)
--- NOTE | 2018-06-21 18:28 | PDOC ---
History of Present Illness - General Chief Complaint: Alcohol intoxication Stated Complaint: ALCOHOL INTOXICATION Time Seen by Provider: 06/21/18 15:42 Past History - Past Medical History Allergies/Adverse Reactions: Allergies Allergy/AdvReac Type Severity Reaction Status Date / Time Fish Containing Products Allergy Mild Swelling Verified 06/17/18 22:38 No Known Drug Allergies Allergy Verified 06/17/18 22:38 Home Medications: Ambulatory Orders Folic Acid - 1 mg PO DAILY tablet 06/04/18 Pantoprazole Sodium [Protonix -] 40 mg PO DAILY tablet.ec 06/04/18 Thiamine HCl [Vitamin B1 -] 100 mg PO DAILY tablet 06/04/18 Amlodipine Besylate [Norvasc -] 10 mg PO DAILY tablet 06/16/18 Anemia: No Asthma: No Cancer: Yes (mesothelioma lung cancer) Cardiac Disorders: No CVA: No COPD: No CHF: No DVT: No Dementia: No Diabetes: No GI Disorders: No Disorders: No HTN: Yes (non compliance) Hypercholesterolemia: No Kidney Stones: No Liver Disease: No Psychiatric Problems: Yes (alcoholism) Seizures: No Thyroid Disease: No - Surgical History Abdominal Surgery: No Appendectomy: No Cardiac Surgery: No Cholecystectomy: No Lung Surgery: No Neurologic Surgery: No Orthopedic Surgery: No - Family Disease History Family Disease History: CA: Mother - Reproductive History Testicular Surgery: No - Immunization History TDAP Vaccination: Yes Immunization Up to Date: Yes - Suicide/Smoking/Psychosocial Hx Smoking Status: No Smoking History: Unknown if ever smoked Have you smoked in the past 12 months: No Number of Cigarettes Smoked Daily: 5 If you are a former smoker, when did you quit?: 0 Cigars Per Day: 0 Information on smoking cessation initiated: No 'Breaking Loose' booklet given: 09/22/17 Hx Alcohol Use: No Drug/Substance Use Hx: No Substance Use Type: Alcohol Hx Substance Use Treatment: No *Physical Exam - Vital Signs Last Vital Signs Temp Pulse Resp BP Pulse Ox 98.6 F 83 16 138/77 99 06/21/18 12:36 06/21/18 12:36 06/21/18 12:36 06/21/18 12:36 06/21/18 12:36 Moderate Sedation - Procedure Monitoring Vital Signs: Procedure Monitoring Vital Signs Temperature 98.6 F 06/21/18 12:36 Pulse Rate 83 06/21/18 12:36 Respiratory Rate 16 06/21/18 12:36 Blood Pressure 138/77 06/21/18 12:36 O2 Sat by Pulse Oximetry (%) 99 06/21/18 12:36 ED Treatment Course - RADIOLOGY Radiology Studies Ordered: Category Date Time Status ELBOW-RIGHT [RAD] Stat Radiology 06/21/18 16:40 Taken HUMERUS-RIGHT [RAD] Stat Radiology 06/21/18 16:40 Taken SHOULDER-RIGHT [RAD] Stat Radiology 06/21/18 16:40 Taken WRIST W/HAND-RIGHT* [RAD] Stat Radiology 06/21/18 16:40 Taken Medical Decision Making - Medical Decision Making ED Course: as patient non compliant with previous admissions and rehab liekly will discharge and give patient resources and follow up with orthopedics and internal medicine clinic. 06/21/18 18:28 *DC/Admit/Observation/Transfer Diagnosis at time of Disposition: Humeral head fracture, Right hand pain - Discharge Dispostion Disposition: HOME Condition at time of disposition: Stable - Referrals Referrals: Jamal Berger MD [Staff Physician] - [facility] [Provider Group] - Patient Instructions Printed Discharge Instructions: DI for Wrist Pain, DI for Hand Pain Additional Instructions: You were seen in the ED for complaints of R hand and wrist pain. In the ED you were evaluated with imaging. Your results showed your existing fractures. There does not appear to be an acute need for immediate hospitalization. You are advised to follow up with your Primary Care Physician within 1 week. You were given a referral to Orthopedics and Internal Medicine Clinic, please follow up within 1 week. Please take over the counter Tylenol and Motrin for pain relief. Return to the ED immediately if you experience worsening wrist and hand pain, numbness, tingling or weakness. - Post Discharge Activity
== END 2018-06-21 20:39 | disposition home or self-care (01) ==
LOC: JER 12:31
DX: S42.301A Unspecified fracture of shaft of humerus, right arm, initial encounter for closed fracture (principal); X58.XXXA Exposure to other specified factors, initial encounter; Y93.9 Activity, unspecified; M79.641 Pain in right hand; C45.7 Mesothelioma of other sites; I10 Essential (primary) hypertension; F10.20 Alcohol dependence, uncomplicated
CPT/HCPCS: 73030-TC-RT-FY; 73060-TC-RT-FY; 73070-TC-RT-FY; 73110-TC-RT-FY; 73130-TC-RT-FY; 99281-25

== ENCOUNTER 2018-06-22 19:19 | Emergency (ER) | payer OTHER ==
[2018-06-22 19:51] VITALS: BP 144/75; PULSE 85; TEMP 98.3; BMI 37.9
--- NOTE | 2018-06-22 22:40 | PDOC ---
History of Present Illness - General Chief Complaint: Alcohol intoxication Stated Complaint: INTOX/LEG PAIN Time Seen by Provider: 06/22/18 20:44 History Source: Patient - History of Present Illness Initial Comments: 06/22/18 22:17 62-year-old e well-known to this ER mode with multiple visits for EtOH abuse and intoxication brought in by ambulance today for intoxication ivan reports that he has some right shoulder pain from previous injury. Denies any new injury. Past History - Past Medical History Allergies/Adverse Reactions: Allergies Allergy/AdvReac Type Severity Reaction Status Date / Time Fish Containing Products Allergy Mild Swelling Verified 06/22/18 19:50 No Known Drug Allergies Allergy Verified 06/22/18 19:50 Home Medications: Ambulatory Orders Folic Acid - 1 mg PO DAILY tablet 06/04/18 Pantoprazole Sodium [Protonix -] 40 mg PO DAILY tablet.ec 06/04/18 Thiamine HCl [Vitamin B1 -] 100 mg PO DAILY tablet 06/04/18 Amlodipine Besylate [Norvasc -] 10 mg PO DAILY tablet 06/16/18 Anemia: No Asthma: No Cancer: Yes (mesothelioma lung cancer) Cardiac Disorders: No CVA: No COPD: No CHF: No DVT: No Dementia: No Diabetes: No GI Disorders: No Disorders: No HTN: Yes (non compliance) Hypercholesterolemia: No Kidney Stones: No Liver Disease: No Psychiatric Problems: Yes (alcoholism) Seizures: No Thyroid Disease: No - Surgical History Abdominal Surgery: No Appendectomy: No Cardiac Surgery: No Cholecystectomy: No Lung Surgery: No Neurologic Surgery: No Orthopedic Surgery: No - Family Disease History Family Disease History: CA: Mother - Reproductive History Testicular Surgery: No - Immunization History TDAP Vaccination: Yes Immunization Up to Date: Yes - Suicide/Smoking/Psychosocial Hx Smoking Status: No Smoking History: Never smoked Have you smoked in the past 12 months: No Number of Cigarettes Smoked Daily: 5 If you are a former smoker, when did you quit?: 0 Cigars Per Day: 0 Information on smoking cessation initiated: No 'Breaking Loose' booklet given: 09/22/17 Hx Alcohol Use: No Drug/Substance Use Hx: No Substance Use Type: Alcohol Hx Substance Use Treatment: No *Physical Exam - Vital Signs Last Vital Signs Temp Pulse Resp BP Pulse Ox 98.3 F 85 22 H 144/75 94 L 06/22/18 19:47 06/22/18 19:47 06/22/18 19:47 06/22/18 19:47 06/22/18 19:47 - Physical Exam General Appearance: Yes: Disheveled, Alcohol on Breath. No: Intoxicated HEENT: positive: Other (abrasion to nose that is healing, hematoma to left cheek (dark vergara)) Respiratory/Chest: positive: Lungs Clear, Normal Breath Sounds Cardiovascular: positive: Regular Rhythm, Regular Rate Extremity: positive: Normal Capillary Refill, Normal Inspection, Normal Range of Motion Integumentary: positive: Normal Color, Dry, Warm Neurologic: positive: Fully Oriented, Alert Moderate Sedation - Procedure Monitoring Vital Signs: Procedure Monitoring Vital Signs Temperature 98.3 F 06/22/18 19:47 Pulse Rate 85 06/22/18 19:47 Respiratory Rate 22 H 06/22/18 19:47 Blood Pressure 144/75 06/22/18 19:47 O2 Sat by Pulse Oximetry (%) 94 L 06/22/18 19:47 *DC/Admit/Observation/Transfer Diagnosis at time of Disposition: Alcohol abuse - Discharge Dispostion Disposition: HOME - Referrals - Patient Instructions Printed Discharge Instructions: DI for Alcohol Abuse Additional Instructions: refrain from drinking alcohol - Post Discharge Activity
[2018-06-23] MEDS ORDERED: ACETAMINOPHEN 325 MG TABLET (FP) PO ONE (06:40)
== END 2018-06-23 06:50 | disposition home or self-care (01) ==
LOC: JER 19:19
DX: F10.220 Alcohol dependence with intoxication, uncomplicated (principal); I10 Essential (primary) hypertension; C45.9 Mesothelioma, unspecified; Z91.14 Patient's other noncompliance with medication regimen; Z59.0 Homelessness
CPT/HCPCS: 99281-25

== ENCOUNTER 2018-06-27 17:13 | Emergency (ER) | payer OTHER ==
[2018-06-27 17:30] VITALS: BMI 33.0
--- NOTE | 2018-06-27 18:17 | PDOC ---
*Physical Exam - Vital Signs Last Vital Signs Temp Pulse Resp BP Pulse Ox 98.2 F 89 18 118/86 96 06/27/18 17:28 06/27/18 17:28 06/27/18 17:28 06/27/18 17:28 06/27/18 17:28 Medical Decision Making - Medical Decision Making 06/27/18 18:17 Pt seen by the Advanced Practice Provider under my direct supervision Ancillary studies reviewed I agree with plan as outlined by the Advanced Practice Provider APPLE Arreola
--- NOTE | 2018-06-27 18:39 | PDOC ---
History of Present Illness - General Chief Complaint: Alcohol intoxication Stated Complaint: INTOXICATION Time Seen by Provider: 06/27/18 17:33 History Source: Patient Past History - Past Medical History Allergies/Adverse Reactions: Allergies Allergy/AdvReac Type Severity Reaction Status Date / Time Fish Containing Products Allergy Mild Swelling Verified 06/22/18 19:50 No Known Drug Allergies Allergy Verified 06/22/18 19:50 Home Medications: Ambulatory Orders Folic Acid - 1 mg PO DAILY tablet 06/04/18 Pantoprazole Sodium [Protonix -] 40 mg PO DAILY tablet.ec 06/04/18 Thiamine HCl [Vitamin B1 -] 100 mg PO DAILY tablet 06/04/18 Amlodipine Besylate [Norvasc -] 10 mg PO DAILY tablet 06/16/18 Anemia: No Asthma: No Cancer: Yes (mesothelioma lung cancer) Cardiac Disorders: No CVA: No COPD: No CHF: No DVT: No Dementia: No Diabetes: No GI Disorders: No Disorders: No HTN: Yes (non compliance) Hypercholesterolemia: No Kidney Stones: No Liver Disease: No Psychiatric Problems: Yes (alcoholism) Seizures: No Thyroid Disease: No - Surgical History Abdominal Surgery: No Appendectomy: No Cardiac Surgery: No Cholecystectomy: No Lung Surgery: No Neurologic Surgery: No Orthopedic Surgery: No - Family Disease History Family Disease History: CA: Mother - Reproductive History Testicular Surgery: No - Immunization History TDAP Vaccination: Yes Immunization Up to Date: Yes - Suicide/Smoking/Psychosocial Hx Smoking Status: No Smoking History: Never smoked Have you smoked in the past 12 months: No Number of Cigarettes Smoked Daily: 5 If you are a former smoker, when did you quit?: 0 Cigars Per Day: 0 Information on smoking cessation initiated: No 'Breaking Loose' booklet given: 09/22/17 Hx Alcohol Use: No Drug/Substance Use Hx: No Substance Use Type: Alcohol Hx Substance Use Treatment: No Review of Systems - Review of Systems Constitutional: No: Fever Respiratory: No: Cough, Shortness of Breath Cardiac (ROS): No: Chest Pain ABD/GI: No: Constipated, Diarrhea, Nausea, Vomiting, Abdominal cramping : No: Dysuria Musculoskeletal: No: Joint Pain, Joint Swelling Neurological: No: Headache, Dizziness *Physical Exam - Vital Signs Last Vital Signs Temp Pulse Resp BP Pulse Ox 98.2 F 89 18 118/86 96 06/27/18 17:28 06/27/18 17:28 06/27/18 17:28 06/27/18 17:28 06/27/18 17:28 - Physical Exam General Appearance: Yes: Appropriately Dressed. No: Apparent Distress HEENT: positive: Normal Voice Neck: positive: Supple Respiratory/Chest: positive: Lungs Clear, Normal Breath Sounds. negative: Respiratory Distress Cardiovascular: positive: Regular Rate, S1, S2 Gastrointestinal/Abdominal: positive: Soft. negative: Tender Integumentary: positive: Dry, Warm Neurologic: positive: Fully Oriented, Alert Moderate Sedation - Procedure Monitoring Vital Signs: Procedure Monitoring Vital Signs Temperature 98.2 F 06/27/18 17:28 Pulse Rate 89 06/27/18 17:28 Respiratory Rate 18 06/27/18 17:28 Blood Pressure 118/86 06/27/18 17:28 O2 Sat by Pulse Oximetry (%) 96 06/27/18 17:28 Medical Decision Making - Medical Decision Making 06/27/18 18:35 63-year-old male undomiciled with history of chronic alcohol abuse, mesothelioma , hypertension, chronic pain syndromes, well-known to ER staff for numerous ED visits for various complaints, most notably for alcohol intoxication, now brought to ED by EMS [place]. Patient admits to drinking today and admits "I drink every day". Denies any fall and currently has no acute complaints. Requesting food in the ED See exam ETOH intox Stable w/ no e/o trauma -sobriety -watch for withdrawal -reassess 06/27/18 19:00 Pt signed out to night team at this time *DC/Admit/Observation/Transfer Diagnosis at time of Disposition: Alcohol intoxication - Discharge Dispostion Condition at time of disposition: Improved - Referrals - Patient Instructions Printed Discharge Instructions: DI for Alcohol Abuse Additional Instructions: Continue to follow up with your PMD Please strongly consider drinking cessation and return when you are ready for inpatient treatment to assist with sobriety - Post Discharge Activity
[2018-06-27 20:33] VITALS: BP 122/84; PULSE 82; TEMP 98.3
[2018-06-27] MEDS ORDERED: ACETAMINOPHEN 500 MG TABLET (FP) PO ONE (21:44)
--- NOTE | 2018-06-27 21:45 | PDOC ---
*Physical Exam - Vital Signs Last Vital Signs Temp Pulse Resp BP Pulse Ox 98.3 F 82 18 122/84 97 06/27/18 19:15 06/27/18 19:15 06/27/18 19:15 06/27/18 19:15 06/27/18 19:15 Medical Decision Making - Medical Decision Making 06/27/18 21:43 Patient endorsed to me by APPLE Dickerson for intoxication pending sobriety. Patient has been sleeping, occasional complaints of lower back pain. Will give Tylenol 975mg 06/28/18 05:24 Patient alert and oriented 3 with steady gait to the bathroom. I discussed the physical exam findings, ancillary test results and final diagnoses with the patient. I answered all of the patient's questions. The patient was satisfied with the care received and felt comfortable with the discharge plan and treatment plan. The Patient agrees to follow up with the primary care physician within 24-72 hours. *DC/Admit/Observation/Transfer Diagnosis at time of Disposition: Alcohol intoxication Qualifiers: Complication of substance-induced condition: uncomplicated Qualified Code(s): F10.920 - Alcohol use, unspecified with intoxication, uncomplicated - Discharge Dispostion Disposition: HOME Condition at time of disposition: Stable - Referrals - Patient Instructions Printed Discharge Instructions: DI for Alcohol Abuse Additional Instructions: Continue to follow up with your PMD Please strongly consider drinking cessation and return when you are ready for inpatient treatment to assist with sobriety - Post Discharge Activity
== END 2018-06-28 06:30 | disposition home or self-care (01) ==
LOC: JER 17:13
DX: F10.220 Alcohol dependence with intoxication, uncomplicated (principal); I10 Essential (primary) hypertension; C45.9 Mesothelioma, unspecified; Z59.0 Homelessness
CPT/HCPCS: 99283-25

== ENCOUNTER 2018-06-29 15:18 | Emergency (ER) | payer OTHER ==
[2018-06-29 15:22] VITALS: BP 108/53; PULSE 94; TEMP 97.4; BMI 34.8
== END 2018-06-29 18:00 | disposition left against medical advice (07) ==
LOC: JER 15:18
DX: Z53.21 Procedure and treatment not carried out due to patient leaving prior to being seen by health care provider (principal)
CPT/HCPCS: 99281-25

== ENCOUNTER 2018-07-03 15:59 | Emergency (ER) | payer OTHER ==
--- NOTE | 2018-07-03 16:27 | PDOC ---
History of Present Illness - General Stated Complaint: INTOX Time Seen by Provider: 07/03/18 16:09 - History of Present Illness Initial Comments: 63-year-old male, with a past medical history of HTN, mesothelioma, alcohol abuse, and recent right humerus fracture presenting via EMS after being found outside intoxicated by the authorities. He has no complaints and says that he just wants a sandwich. 07/03/18 16:32 Past History - Past Medical History Allergies/Adverse Reactions: Allergies Allergy/AdvReac Type Severity Reaction Status Date / Time Fish Containing Products Allergy Mild Swelling Verified 07/03/18 16:32 No Known Drug Allergies Allergy Verified 07/03/18 16:32 Home Medications: Ambulatory Orders NK [No Known Home Medication] 07/03/18 Anemia: No Asthma: No Cancer: Yes (mesothelioma lung cancer) Cardiac Disorders: No CVA: No COPD: No CHF: No DVT: No Dementia: No Diabetes: No GI Disorders: No Disorders: No HTN: Yes (non compliance) Hypercholesterolemia: No Kidney Stones: No Liver Disease: No Psychiatric Problems: Yes (alcoholism) Seizures: No Thyroid Disease: No - Surgical History Abdominal Surgery: No Appendectomy: No Cardiac Surgery: No Cholecystectomy: No Lung Surgery: No Neurologic Surgery: No Orthopedic Surgery: No - Family Disease History Family Disease History: CA: Mother - Reproductive History Testicular Surgery: No - Immunization History TDAP Vaccination: Yes Immunization Up to Date: Yes - Suicide/Smoking/Psychosocial Hx Smoking Status: No Smoking History: Never smoked Have you smoked in the past 12 months: No Number of Cigarettes Smoked Daily: 5 If you are a former smoker, when did you quit?: 0 Cigars Per Day: 0 'Breaking Loose' booklet given: 09/22/17 Hx Alcohol Use: Yes Drug/Substance Use Hx: No Substance Use Type: Alcohol Hx Substance Use Treatment: No Review of Systems - Review of Systems Constitutional: No: Chills, Diaphoresis, Fever, Loss of Appetite HEENTM: No: Eye Pain, Blurred Vision, Tearing, Recent change in vision Respiratory: No: Orthopnea, Shortness of Breath Cardiac (ROS): No: Chest Pain, Edema ABD/GI: No: Diarrhea, Nausea, Vomiting : No: Dysuria, Discharge, Flank Pain Musculoskeletal: No: Back Pain Integumentary: No: Lesions, Lumps, Pallor Neurological: No: Headache, Numbness, Paresthesia Psychiatric: Yes: Anxiety. No: Frequent Crying Hematologic/Lymphatic: Yes: Blood Clots. No: Anemia *Physical Exam - Physical Exam General Appearance: Yes: Nourished, Appropriately Dressed, Alcohol on Breath, Intoxicated. No: Apparent Distress HEENT: positive: DOUGLAS, Normal ENT Inspection, Normal Voice Neck: positive: Trachea midline, Normal Thyroid, Supple. negative: Tender, Rigid Respiratory/Chest: positive: Lungs Clear. negative: Chest Tender, Normal Breath Sounds (bilateral basilar crackles), Respiratory Distress, Accessory Muscle Use Cardiovascular: positive: Regular Rhythm, Regular Rate Gastrointestinal/Abdominal: positive: Normal Bowel Sounds, Flat, Soft. negative : Tender Lymphatic: negative: Adenopathy, Tenderness Musculoskeletal: positive: Normal Inspection. negative: Decreased Range of Motion Extremity: positive: Normal Capillary Refill, Normal Inspection, Normal Range of Motion Integumentary: positive: Dry. negative: Normal Color Neurologic: positive: Fully Oriented, Normal Mood/Affect, Normal Response Medical Decision Making - Medical Decision Making 63 year old acutely intoxicated male. Patient still clinically intoxicated. Patient given soup and sandwiches + juice. Pending sobriety then DC. Signed out to Dr. Wilson. 07/03/18 19:08 *DC/Admit/Observation/Transfer Diagnosis at time of Disposition: Intoxication - Discharge Dispostion Disposition: HOME Condition at time of disposition: Improved Decision to Admit order: No - Referrals - Patient Instructions - Post Discharge Activity
--- NOTE | 2018-07-03 16:28 | PDOC ---
Attending Attestation - HPI HPI: 07/03/18 16:32 The patient is a 63 year old male with a past medical history of chronic back pain, HTN, alcoholism, and mesothelioma here today for evaluation of alcohol intoxication. Patient was found intoxicated by the police and was brought to the ER. The police took away the patients alcohol. Patient has no complaints of pain. Patient denies headache, lightheadedness. Denies fever, chills. Denies chest pain, shortness of breath. Denies nausea, vomiting, diarrhea, abdominal pain. Allergies: fish containing products, NKDA Social history: Patient confirms alcohol use. PCP: none - Physicial Exam PE: 07/03/18 16:32 Constitutional: +smell of alcohol. Awake, alert, oriented. No acute distress. Head: Normocephalic. Atraumatic Eyes: PERRL. EOMI. Conjunctivae are not pale. ENT: Mucous membranes are moist and intact. Posterior pharynx without exudates or erythema. Uvula midline. Neck: Supple. Full ROM. No lymphadenopathy. Cardiovascular: Regular rate. Regular rhythm. S1, S2 regular. Distal pulses are 2+ and symmetric. Pulmonary/Chest: No evidence of respiratory distress. Clear to auscultation bilaterally No wheezing, rales or rhonchi. Abdominal: Soft and non-distended. There is no tenderness. No rebound, guarding or rigidity. No organomegaly. No palpable masses. Good bowel sounds. Back: No CVA tenderness. Musculoskeletal: No edema. No cyanosis. No clubbing. Full range of motion in all extremities. Nocalf tenderness. Radial/pedal pulses are intact and 2+ bilaterally Skin: Skin is warm and dry. No petechiae. No purpura. Neurological: Alert and oriented to person, place, and time. Cranial nerves II -XII are grossly intact. Normal speech. Strength is grossly symmetric. No sensory deficits. Psychiatric: Good eye contact. Normal interaction, affect and behavior. - Medical Decision Making 07/03/18 16:32 Documentation prepared by JOSE ANTONIO Yoo, acting as medical reception for Skye Rashid DO. <Smith Douglas - Last Filed: 07/03/18 16:32> - Resident Resident Name: Ronald Rizzo - ED Attending Attestation I have performed the following: I have examined & evaluated the patient, The case was reviewed & discussed with the resident, I agree w/resident's findings & plan, Exceptions are as noted - Medical Decision Making 07/03/18 16:26 I, Dr. Skye Rashid, DO, attest that this document has been prepared under my direction and personally reviewed by me in its entirety. I further attest, that it accurately reflects all work, treatment, procedures and medical decision -making performed by me. 07/03/18 16:26 a/p: 63yo male with hx of ETOH abuse presents intoxicated after being found by police intoxicated -EMS states the Police took away the vodka -pt with smell of etoh on his breath -no complaints -no external signs of trauma on his head 07/03/18 16:44 will allow patient to metabolize etoh <Skye Rashid - Last Filed: 07/03/18 16:44>
[2018-07-03 16:32] VITALS: TEMP 98.1; BMI 33.0
--- NOTE | 2018-07-04 04:06 | PDOC ---
*Physical Exam - Vital Signs Last Vital Signs Temp Pulse Resp BP Pulse Ox 98.1 F 92 H 18 128/82 98 07/03/18 16:29 07/03/18 16:29 07/03/18 16:29 07/03/18 16:29 07/03/18 16:29 - Physical Exam General Appearance: Yes: Nourished, Disheveled, Intoxicated, Obese HEENT: positive: Normal Voice, Hearing Grossly Normal Neck: positive: Trachea midline, Supple Respiratory/Chest: positive: Rapid RR. negative: Labored Respiration Cardiovascular: positive: Edema (B/L LE 2-3+ pitting edema - chronic). negative : JVD Musculoskeletal: negative: Vertebral Tenderness Extremity: positive: Normal Capillary Refill, Pedal Edema Integumentary: positive: Normal Color, Dry, Warm Neurologic: positive: Fully Oriented, Alert Medical Decision Making - Medical Decision Making 07/04/18 04:04 Patient signed out by Dr. Rizzo (Resident) and Dr. Rashid (Attending) @ 7 p.m. 63 year old male actively intoxicated, no medical complaints, requesting a sandwich. VSS Resting comfortably. Will continue to observe while patient metabolizes EtOH 07/04/18 04:09 Patient c/o exacerbation of his chronic back pain. OTD Robaxin. 07/04/18 05:35 Patient amenable to alcohol detoxification Patient accepted to [facility] ([address] [place] [address]) - as per Dr. Kumar (Attending) 07/04/18 07:16 Patient signed out to Dr. Dover (Resident) and Dr. Rodriges (Attending) Pending discharge to Detox *DC/Admit/Observation/Transfer Diagnosis at time of Disposition: Intoxication - Discharge Dispostion Condition at time of disposition: Improved Decision to Admit order: No - Referrals - Patient Instructions Printed Discharge Instructions: DI for Alcohol Abuse Additional Instructions: You are being discharged to alcohol detoxification. Call 911 or present to an Emergency Department for any new/worsening/concerning symptoms. - Post Discharge Activity
[2018-07-04] MEDS ORDERED: METHOCARBAMOL 500 MG TABLET PO ONE (05:08)
[2018-07-04] MEDS ORDERED: METHOCARBAMOL 500 MG TABLET ONE (05:10)
--- NOTE | 2018-07-04 05:40 | PDOC ---
*Physical Exam - Vital Signs Last Vital Signs Temp Pulse Resp BP Pulse Ox 98.1 F 93 H 20 131/85 96 07/03/18 16:29 07/04/18 05:33 07/04/18 05:33 07/04/18 05:33 07/04/18 05:33 ED Treatment Course - Medications Given in the ED: ED Medications Discontinued Medications Generic Name Dose Route Start Last Admin Trade Name Freq PRN Reason Stop Dose Admin Methocarbamol 500 mg 07/04/18 05:08 07/04/18 05:11 Robaxin - PO 07/04/18 05:09 500 mg ONCE ONE Administration Medical Decision Making - Medical Decision Making 07/04/18 05:40 I called the [facility] detox center at [address] [place] [address] and they will take Mr. De Leon to detox in [place] *DC/Admit/Observation/Transfer Diagnosis at time of Disposition: Intoxication - Discharge Dispostion Condition at time of disposition: Improved - Referrals - Patient Instructions Printed Discharge Instructions: DI for Alcohol Abuse Additional Instructions: You are being discharged to alcohol detoxification. Return to the Emergency Department for any new/worsening/concerning symptoms. - Post Discharge Activity
--- NOTE | 2018-07-04 16:59 | PDOC ---
*Physical Exam - Vital Signs Last Vital Signs Temp Pulse Resp BP Pulse Ox 98.1 F 93 H 20 131/85 96 07/03/18 16:29 07/04/18 05:33 07/04/18 05:33 07/04/18 05:33 07/04/18 05:33 ED Treatment Course - Medications Given in the ED: ED Medications Discontinued Medications Generic Name Dose Route Start Last Admin Trade Name Francisco Javier PRN Reason Stop Dose Admin Methocarbamol 500 mg 07/04/18 05:08 07/04/18 05:11 Robaxin - PO 07/04/18 05:09 500 mg ONCE ONE Administration Medical Decision Making - Medical Decision Making 07/04/18 16:57 Pt unable to be admitted to detox due to lack of personal identification. Pt reassessed - is clinically sober at this time, ambulatory with steady gait. I offered pt detox at [facility], which he accepted. [facility] confirms bed is open. Will DC pt to [facility] detox *DC/Admit/Observation/Transfer Diagnosis at time of Disposition: Intoxication - Discharge Dispostion Disposition: HOME Condition at time of disposition: Improved - Referrals - Patient Instructions Printed Discharge Instructions: DI for Alcohol Abuse Additional Instructions: You are being discharged to alcohol detoxification. Call 911 or present to an Emergency Department for any new/worsening/concerning symptoms. - Post Discharge Activity - Attestations Physician Attestion: 07/04/18 16:58 I, Dr. Jamal Rodriges MD, attest that this document has been prepared under my direction and personally reviewed by me in its entirety. I further attest, that it accurately reflects all work, treatment, procedures and medical decision -making performed by me.
[2018-07-04 17:02] VITALS: BP 164/90; PULSE 90
== END 2018-07-04 17:15 | disposition home or self-care (01) ==
LOC: JER 15:59
DX: F10.220 Alcohol dependence with intoxication, uncomplicated (principal); I10 Essential (primary) hypertension; C45.9 Mesothelioma, unspecified; M54.5 Low back pain; G89.29 Other chronic pain; Z59.0 Homelessness
CPT/HCPCS: 99284-25

== ENCOUNTER 2018-07-12 16:20 | Inpatient (IN) | payer OTHER ==
--- NOTE | 2018-07-12 16:51 | PDOC ---
History of Present Illness - General Chief Complaint: Alcohol intoxication Stated Complaint: INTOX History Source: Patient Exam Limitations: No Limitations - History of Present Illness Initial Comments: 07/12/18 18:06 63 yo M with a hx of HTN, mesothelioma, ETOH abuse, multiple fractures of the ribs and extremities in the past, and fractures in the vertebral column presents to the emergency department with SOB and weakness with onset today. Per the patient, he states he "just feel off, not as strong". Patient denies recent falls. He states he has been feeling increased SOB at rest, but denies chest pain. Endorses an emesis episode earlier today non bilious, non bloody. He states his last drink was "4 to 5 days ago". Denies the following: fever, chills, nausea, chest pain, abdominal pain, ears/nose/throat pain, acute neck pain, acute back pain, headaches, dysuria, hematuria, diarrhea, hematochezia, and leg pain/swelling. Social: Denies tobacco and substance abuse. Allergies: NKDA Meds: amlodipine, thiamine, folic acid, and protonix Past History - Past Medical History Allergies/Adverse Reactions: Allergies Allergy/AdvReac Type Severity Reaction Status Date / Time Fish Containing Products Allergy Mild Swelling Verified 07/03/18 16:32 No Known Drug Allergies Allergy Verified 07/03/18 16:32 Home Medications: Ambulatory Orders NK [No Known Home Medication] 07/03/18 Anemia: No Asthma: No Cancer: Yes (mesothelioma lung cancer) Cardiac Disorders: No CVA: No COPD: No CHF: No DVT: No Dementia: No Diabetes: No GI Disorders: No Disorders: No HTN: Yes (non compliance) Hypercholesterolemia: No Kidney Stones: No Liver Disease: No Psychiatric Problems: Yes (alcoholism) Seizures: No Thyroid Disease: No - Surgical History Abdominal Surgery: No Appendectomy: No Cardiac Surgery: No Cholecystectomy: No Lung Surgery: No Neurologic Surgery: No Orthopedic Surgery: No - Family Disease History Family Disease History: CA: Mother - Reproductive History Testicular Surgery: No - Immunization History TDAP Vaccination: Yes Immunization Up to Date: Yes - Suicide/Smoking/Psychosocial Hx Smoking Status: No Smoking History: Never smoked Have you smoked in the past 12 months: No Number of Cigarettes Smoked Daily: 5 If you are a former smoker, when did you quit?: 0 Cigars Per Day: 0 Information on smoking cessation initiated: No 'Breaking Loose' booklet given: 09/22/17 Hx Alcohol Use: No Drug/Substance Use Hx: No Substance Use Type: Alcohol Hx Substance Use Treatment: No Review of Systems - Review of Systems Able to Perform ROS?: Yes Is the patient limited Amharic proficient: No Constitutional: Yes: Weakness. No: Chills, Diaphoresis, Fever HEENTM: No: Recent change in vision, Ear Pain, Nose Pain, Throat Pain, Mouth Pain Respiratory: Yes: Shortness of Breath. No: Cough, Hemoptysis Cardiac (ROS): No: Chest Pain, Lightheadedness, Palpitations, Syncope, Chest Tightness ABD/GI: No: Constipated, Diarrhea, Nausea, Poor Appetite, Poor Fluid Intake, Rectal Bleeding, Vomiting, Tarry Stools : No: Burning, Dysuria, Hematuria, Urgency Musculoskeletal: No: Back Pain, Joint Pain, Neck Pain Integumentary: No: Erythema, Flushing, Pruritus, Rash Neurological: No: Headache, Numbness, Tingling, Ataxia, Dizziness Psychiatric: No: Change in Appetite Endocrine: No: Unexplained Weight Gain Hematologic/Lymphatic: Yes: Blood Clots (history) *Physical Exam - Vital Signs Last Vital Signs Temp Pulse Resp BP Pulse Ox 98 F 93 H 16 104/82 100 07/12/18 16:25 07/12/18 16:25 07/12/18 16:25 07/12/18 16:25 07/12/18 16:25 - Physical Exam General Appearance: Yes: Nourished, Disheveled, Alcohol on Breath, Intoxicated, Obese. No: Appropriately Dressed, Apparent Distress HEENT: positive: EOMI, DOUGLAS, Normal Voice, Pharynx Normal, Hearing Grossly Normal, Other (dry mucosa). negative: Pale Conjunctivae, Scleral Icterus (R), Scleral Icterus (L), Muffled/Hoarse voice, Pharyngeal Erythema, Tonsillar Exudate, Tonsillar Erythema, Nasal Congestion, Rhinorrhea, Sinus Tenderness, Excessive drooling Neck: positive: Trachea midline. negative: Tender, Lymphadenopathy (R), Lymphadenopathy (L) Respiratory/Chest: positive: Lungs Clear, Rhonchi. negative: Chest Tender, Respiratory Distress, Accessory Muscle Use Cardiovascular: positive: Regular Rhythm, Regular Rate, S1, S2. negative: Systolic Murmur Gastrointestinal/Abdominal: positive: Normal Bowel Sounds. negative: Tender Moderate Sedation - Procedure Monitoring Vital Signs: Procedure Monitoring Vital Signs Temperature 98 F 07/12/18 16:25 Pulse Rate 93 H 07/12/18 16:25 Respiratory Rate 16 07/12/18 16:25 Blood Pressure 104/82 07/12/18 16:25 O2 Sat by Pulse Oximetry (%) 100 07/12/18 16:25 Medical Decision Making - Medical Decision Making 07/12/18 18:52 63 yo M with a hx of HTN, mesothelioma, ETOH abuse, multiple fractures of the ribs and extremities in the past, and fractures in the vertebral column presents to the emergency department with SOB and weakness with onset today. Initial vitals; Initial Vital Signs Temp Pulse Resp BP Pulse Ox 98 F 93 H 16 104/82 100 07/12/18 16:25 07/12/18 16:25 07/12/18 16:25 07/12/18 16:25 07/12/18 16:25 Work up: ddx: weakness and SOB etiology (metabolic disturbance vs infectious etiology vs malnutrition vs trauma (denies recent trauma) vs advancement of carcinoma of the lungs vs cardiogenic (arrhythmia vs ACS) vs PNA vs URI vs pericarditis vs pancreatitis vs intoxication (alcohol) vs weakness orders: cbc, cmp, lipase, trops, bnp, UA, urine culture, ekg, cxr, etoh, interventions: NS On reassessment after reviewing previous records, I looked at his dorsum of his feet. on his left foot is a 1-2 cm circular ulcer with pus warm to the touch on the dorsum. on the right is another ulcer that is erythematous but less severe than left measuring at 1 cm. Signed the patient out to Dr. West who ordered wound cultures and foot xrays. Dispo: Signed out to Dr. West 07/12/18 18:55 07/12/18 19:15 *DC/Admit/Observation/Transfer Diagnosis at time of Disposition: Homelessness, Weakness - Referrals - Patient Instructions - Post Discharge Activity
[2018-07-12] MEDS ORDERED: ALBUTEROL SO4 2.5/IPRATROPIUM 0.5 INH SOL 3 ML VIAL.NEB. NEB ONE (17:46)
--- NOTE | 2018-07-12 17:54 | PDOC ---
Attending Attestation - Resident Resident Name: DaniloKobi - ED Attending Attestation I have performed the following: I have examined & evaluated the patient, The case was reviewed & discussed with the resident, I agree w/resident's findings & plan, Exceptions are as noted - HPI HPI: 07/12/18 17:54 63 yo male with long history of alcoholism p/w generalized weakness - Physicial Exam PE: 07/12/18 17:54 disheveled bearded 63 yo male ,slightly somnolent with alcohol on breath 07/12/18 20:12 head no scalp lacerations,no appreciated scalp hematomas neck no c spine tenderness lungs no wheezing cvs [id number] abd protuberant, no rebound ext there are wounds on the dorsal surface of both feet, about 2 cm in diameter neuro alert and conversant,follows commands - Medical Decision Making 07/14/18 01:51 pt was later admitted for repeat trop and OBS
[2018-07-12] MEDS ORDERED: SODIUM CHLORIDE 1,000 ML IV STA (18:14)
[2018-07-12] MEDS ORDERED: FOLIC ACID INJECTION - 1 MG, THIAMINE HCL 100 MG, MULTIVIT INJECTION ADULT 10 ML in SOD... IVPB ONE (18:59)
--- NOTE | 2018-07-12 18:59 | PDOC ---
*Physical Exam - Vital Signs Last Vital Signs Temp Pulse Resp BP Pulse Ox 98 F 93 H 16 104/82 100 07/12/18 16:25 07/12/18 16:25 07/12/18 16:25 07/12/18 16:25 07/12/18 16:25 Medical Decision Making - Medical Decision Making 07/12/18 18:57 The patient was signed out to me by Dr. Carrasco. The patient is a 63M, well known to ED, who presents with complaints of SOB and weakness that started today. Pending labwork and imaging. 07/12/18 19:04 Pt will be taken care of by Dr. West. *DC/Admit/Observation/Transfer Diagnosis at time of Disposition: Homelessness, Weakness - Referrals - Patient Instructions - Post Discharge Activity
[2018-07-12 19:54] LABS: BASO % 0.8 % (0-2.0); EOS % 1.5 % (0-4.5); HEMATOCRIT 30.3 % (35.4-49); HEMOGLOBIN 9.6 GM/dL (11.7-16.9); MCH 24.6 pg (25.7-33.7); MCHC 31.5 g/dl (32.0-35.9); MEAN CELL VOLUME 78.1 fl (80-96); MEAN PLT VOLUME 7.6 fl (7.5-11.1); MONO % 8.8 % (3.8-10.2); NEUT % 70.9 % (42.8-82.8); PLATELET COUNT 484 K/MM3 (134-434); RBC 3.88 M/mm3 (4.00-5.60); RDW 21.6 % (11.9-15.9); WHITE BLOOD COUNT 9.5 K/mm3 (4.0-10.0)
[2018-07-12 20:21] LABS: MAGNESIUM 1.8 mg/dL (1.8-2.4)
[2018-07-12 20:29] LABS: ALBUMIN 3.2 g/dl (3.4-5.0); ALK PHOS 147 U/L (45-117); ANION GAP 13 MMOL/L (8-16); BILIRUBIN,TOTAL 0.4 mg/dL (0.2-1); BLOOD UREA NITROGEN 12 mg/dL (7-18); CALCIUM 8.6 mg/dL (8.5-10.1); CHLORIDE 105 mmol/L (98-107); CO2 20 mmol/L (21-32); GLUCOSE,RANDOM 83 mg/dL (74-106); POTASSIUM 3.9 mmol/L (3.5-5.1); SGOT/AST 34 U/L (15-37); SGPT/ALT 30 U/L (13-61); SODIUM 138 mmol/L (136-145); TOT PROT 6.9 g/dl (6.4-8.2)
--- NOTE | 2018-07-12 22:10 | PDOC ---
*Physical Exam - Vital Signs Last Vital Signs Temp Pulse Resp BP Pulse Ox 98 F 93 H 16 104/82 100 07/12/18 16:25 07/12/18 16:25 07/12/18 16:25 07/12/18 16:25 07/12/18 16:25 ED Treatment Course - LABORATORY CBC & Chemistry Diagram: 07/12/18 17:30 07/12/18 19:30 - ADDITIONAL ORDERS Additional order review: Laboratory Results 07/12/18 07/12/18 07/12/18 19:30 19:30 19:30 Sodium 138 Potassium 3.9 Chloride 105 Carbon Dioxide 20 L Anion Gap 13 BUN 12 Creatinine 1.0 Creat Clearance w eGFR > 60 Random Glucose 83 Lactic Acid 3.3 H* Calcium 8.6 Magnesium 1.8 Total Bilirubin 0.4 AST 34 ALT 30 Alkaline Phosphatase 147 H Creatine Kinase 84 Troponin I < 0.02 B-Natriuretic Peptide 157.0 H Total Protein 6.9 Albumin 3.2 L Lipase 65 L Alcohol, Quantitative 258.5 H 07/12/18 17:30 RBC 3.88 L MCV 78.1 L MCHC 31.5 L RDW 21.6 H MPV 7.6 Neutrophils % 70.9 Lymphocytes % 18.0 Monocytes % 8.8 Eosinophils % 1.5 Basophils % 0.8 - RADIOLOGY Radiology Studies Ordered: Category Date Time Status FOOT-LEFT [RAD] Stat Radiology 07/12/18 19:59 Taken Medical Decision Making - Medical Decision Making 07/12/18 22:09 Pt signed out to me by Dr. Carrasco CC: "just feel off, not as strong". feeling increased SOB at rest, but denies chest pain. Has ulceration on dorsal aspect of L foot. He states his last drink was "4 to 5 days ago". blood cultures, cbc, cmp, lactic acid ordered. wound culture, cxr, ekg, L foot xray. Given IV fluids. significant labs Laboratory Tests 07/12/18 07/12/18 07/12/18 17:30 19:30 19:30 WBC 9.5 Hgb 9.6 L Lactic Acid 3.3 H* B-Natriuretic Peptide 157.0 H Alcohol, Quantitative 07/12/18 07/13/18 19:30 00:18 WBC Hgb Lactic Acid 3.2 H* B-Natriuretic Peptide Alcohol, Quantitative 258.5 H Initial lactate 3.3 given 1L LR. repeat lac 3.2. EKG shows nsr. L axis deviation. No signs of acute ischemia. Similar to prior ekgs. CXR shows poor inspiratory effort. no focal consolidation or infiltrate. Pt cc SOB. Will send second trop which was negative. L foot wound appears superficial, does not erode deep into dermis. slight surrounding erythema, no fluctuations, no warmth. Will give IV clindamycin, apply bacitracin and cover wound. Pt has elevated lactic acid levels. Will admit ED obs. Will redraw lactate level. Pt on RA, sleeping. No signs of respiratory distress. repeat lactic acid 1.9 however pt has oral temp 100.6. Pt now under care of admitting team. flu swab ordered and sent. *DC/Admit/Observation/Transfer Diagnosis at time of Disposition: Homelessness, Weakness, Intoxication, Lactic acid blood increased Skin ulcer Qualifiers: Non-pressure ulcer stage: limited to breakdown of skin Qualified Code(s): L98.491 - Non-pressure chronic ulcer of skin of other sites limited to breakdown of skin - Discharge Dispostion Condition at time of disposition: Good - Referrals - Patient Instructions - Post Discharge Activity
[2018-07-12] MEDS ORDERED: CLINDAMYCIN 600MG PREMIX IVPB 600 MG/50 ML BAG IVPB ONE ×2 (22:25→22:29)
[2018-07-12] MEDS ORDERED: LACTATED RINGERS SOLUTION 1000 ML INFUS.BAG IV ONE (22:25)
[2018-07-13] MEDS ORDERED: BACITRACIN 15 GM TUBE TOPICAL OINTMENT TP ONE (01:43)
[2018-07-13] MEDS ORDERED: ACETAMINOPHEN 325 MG TABLET (FP) PO ONE ×2 (04:54→21:06)
[2018-07-13] MEDS ORDERED: ACETAMINOPHEN 325 MG TABLET (FP) ONE (04:55)
[2018-07-13] MEDS ORDERED: FOLIC ACID INJECTION - 1 MG, THIAMINE HCL 100 MG, MULTIVIT INJECTION ADULT 10 ML in SOD... IVPB ONE (05:05)
[2018-07-13] MEDS ORDERED: SODIUM CHLORIDE 1,000 ML IV STA (05:10)
[2018-07-13] MEDS ORDERED: THIAMINE HCL 100 MG TABLET (FP) PO ONE (05:10)
[2018-07-13] MEDS ORDERED: THIAMINE HCL 100 MG TABLET (FP) ONE (05:16)
--- NOTE | 2018-07-13 05:24 | HP ---
CHIEF COMPLAINT: "not feeling himself" PCP: HISTORY OF PRESENT ILLNESS: The patient is a 63 yo m well known to our ED w/ PMH mesothelioma, HTN, ETOH abuse who comes into the ED c/o "not feeling himself." for the past day. The patient states that he was at a shelter earlier, then took a cab here when he bagan to experince his symptoms. Per the patient, he also had a fever to " 100 and something" in the shelter. Patient denies chest pain, SOB, abdominal pain. He endorses shakes at the time of interview. Patient states that he drinks approx. 1 pint of vodka per day with his last drink being 3-4 days ago. ER course was notable for: (1) Lactic acid 3.3 -> 3.2 -> 1.9 (2) fever to 100.5 orally (3) Recent Travel: none PAST MEDICAL HISTORY: see HPI PAST SURGICAL HISTORY: none Social History: Smoking: denies Alcohol: see HPI Drugs: denies Family History: non-contributory Allergies Fish Containing Products Allergy (Mild, Verified 07/03/18 16:32) Swelling No Known Drug Allergies Allergy (Verified 07/03/18 16:32) HOME MEDICATIONS: Home Medications Medication Instructions Recorded NK [No Known Home Medication] 07/03/18 REVIEW OF SYSTEMS CONSTITUTIONAL: Absent: diaphoresis, generalized weakness, loss of appetite, weight change HEENT: Absent: rhinorrhea, nasal congestion, throat pain, throat swelling, difficulty swallowing, mouth swelling, ear pain, eye pain, visual changes CARDIOVASCULAR: Absent: chest pain, syncope, palpitations, irregular heart rate, lightheadedness , peripheral edema RESPIRATORY: Absent: cough, shortness of breath, dyspnea with exertion, orthopnea, wheezing, stridor, hemoptysis GASTROINTESTINAL: Absent: abdominal pain, abdominal distension, nausea, vomiting, diarrhea, constipation, melena, hematochezia GENITOURINARY: Absent: dysuria, frequency, urgency, hesitancy, hematuria, flank pain, genital pain MUSCULOSKELETAL: Absent: myalgia, arthralgia, joint swelling, back pain, neck pain SKIN: Absent: rash, itching, pallor HEMATOLOGIC/IMMUNOLOGIC: Absent: easy bleeding, easy bruising, lymphadenopathy, frequent infections ENDOCRINE: Absent: unexplained weight gain, unexplained weight loss, heat intolerance, cold intolerance NEUROLOGIC: Absent: headache, focal weakness or paresthesias, dizziness, unsteady gait, seizure, mental status changes, bladder or bowel incontinence PSYCHIATRIC: Absent: anxiety, depression, suicidal or homicidal ideation, hallucinations. PHYSICAL EXAMINATION Vital Signs - 24 hr 07/12/18 07/12/18 07/12/18 16:25 16:45 23:50 Temperature 98 F Pulse Rate 93 H Pulse Rate [ 90 Apical] Respiratory 16 17 Rate Blood Pressure 104/82 Blood Pressure 112/78 [Right Arm] O2 Sat by Pulse 100 100 98 Oximetry (%) 07/13/18 04:45 Temperature 100.6 F H Pulse Rate Pulse Rate [ Apical] Respiratory Rate Blood Pressure Blood Pressure [Right Arm] O2 Sat by Pulse Oximetry (%) GENERAL: Awake, alert, and fully oriented, in no acute distress. HEAD: Normal with no signs of trauma. EYES: Pupils equal, round and reactive to light, extraocular movements intact, sclera anicteric, conjunctiva clear. No lid lag. LUNGS: Breath sounds equal, clear to auscultation bilaterally. No wheezes, and no crackles. No accessory muscle use. HEART: Regular rate and rhythm, normal S1 and S2 without murmur, rub or gallop. ABDOMEN: Soft, nontender, not distended, normoactive bowel sounds, no guarding, no rebound, no masses. No hepatomegaly or splenomegaly. LOWER EXTREMITIES: 2+ pulses, warm, well-perfused. No calf tenderness. No peripheral edema. NEUROLOGICAL: Cranial nerves II-X intact. Normal speech. SKIN: Warm, dry, normal turgor, no rashes or lesions noted, normal capillary refill. Patient has b/l ulcerations on the dorsum of his feet. He declines to have them unwrapped. As per ED staff, his ulcers are approx. 2-3 cm in diameter and stage 1-2. Laboratory Results - last 24 hr 07/12/18 07/12/18 07/12/18 17:30 19:30 19:30 WBC 9.5 RBC 3.88 L Hgb 9.6 L Hct 30.3 L MCV 78.1 L MCH 24.6 L MCHC 31.5 L RDW 21.6 H Plt Count 484 H D MPV 7.6 Absolute Neuts (auto) 6.8 Neutrophils % 70.9 Lymphocytes % 18.0 Monocytes % 8.8 Eosinophils % 1.5 Basophils % 0.8 Nucleated RBC % 0 Sodium 138 Potassium 3.9 Chloride 105 Carbon Dioxide 20 L Anion Gap 13 BUN 12 Creatinine 1.0 Creat Clearance w eGFR > 60 Random Glucose 83 Lactic Acid 3.3 H* Calcium 8.6 Magnesium Total Bilirubin 0.4 AST 34 ALT 30 Alkaline Phosphatase 147 H Creatine Kinase 84 Troponin I < 0.02 B-Natriuretic Peptide 157.0 H Total Protein 6.9 Albumin 3.2 L Lipase Alcohol, Quantitative 07/12/18 07/13/18 07/13/18 19:30 00:18 02:11 WBC RBC Hgb Hct MCV MCH MCHC RDW Plt Count MPV Absolute Neuts (auto) Neutrophils % Lymphocytes % Monocytes % Eosinophils % Basophils % Nucleated RBC % Sodium Potassium Chloride Carbon Dioxide Anion Gap BUN Creatinine Creat Clearance w eGFR Random Glucose Lactic Acid 3.2 H* Calcium Magnesium 1.8 Total Bilirubin AST ALT Alkaline Phosphatase Creatine Kinase Troponin I < 0.02 B-Natriuretic Peptide Total Protein Albumin Lipase 65 L Alcohol, Quantitative 258.5 H 07/13/18 04:30 WBC RBC Hgb Hct MCV MCH MCHC RDW Plt Count MPV Absolute Neuts (auto) Neutrophils % Lymphocytes % Monocytes % Eosinophils % Basophils % Nucleated RBC % Sodium Potassium Chloride Carbon Dioxide Anion Gap BUN Creatinine Creat Clearance w eGFR Random Glucose Lactic Acid 1.9 Calcium Magnesium Total Bilirubin AST ALT Alkaline Phosphatase Creatine Kinase Troponin I B-Natriuretic Peptide Total Protein Albumin Lipase Alcohol, Quantitative ASSESSMENT/PLAN: The patient is a 63 yo m w/ PMH ETOH abuse, HTN, mesothelioma who comes into the ed for generalized malaise found to have a lactic acidosis and fever. #Lactic acidosis and fever possibly secondary to infected foot ulcers -1L NS bolus now -NS @ 75 after -Thiamine 200mg daily -will cover empirically with Ancef 1g q8h pending cultures -consider wound care consult -consider ID consult -BCx, wound Cx sent -UA, UCx ordered -CXR is of poor quality, consider rpt if patient begins to complain of respiratory ssx -flu swab -consider further LE imaging pending am assessment of ulcer as I was unable to view it. #ETOH abuse -Ativan 1mg q6h PRN withdrawal ssx -S/P banana bag in ED -PO thiamine 200mg daily #Anemia -microcytic anemia is not typical of ETOH abuser -stool for occult blood -iron studies -no colonoscopy on file -consider GI eval in AM #HTN -c/w home amlodipine #FEN -NS @ 75 -lytes wnl; check mag and phos in AM -sodium controlled diet #Prophy -Heparin SQ 5k units q8h #Dispo -observe on med surg Visit type - Emergency Visit Emergency Visit: Yes ED Registration Date: 07/13/18 Care time: The patient presented to the Emergency Department on the above date and was hospitalized for further evaluation of their emergent condition. - New Patient This patient is new to me today: Yes Date on this admission: 07/13/18 - Critical Care Critical Care patient: No
--- NOTE | 2018-07-13 05:24 | PN ---
Teaching Attending Note Name of Resident: Michael Werner ATTENDING PHYSICIAN STATEMENT I saw and evaluated the patient. I reviewed the resident's note and discussed the case with the resident. I agree with the resident's findings and plan as documented. SUBJECTIVE: Patient is a 63 year old man with PMH of HTN, mesothelioma, ETOH abuse, left foot ulcer, multiple fractures of the ribs and extremities in the past, and fractures in the vertebral column presents to the ER with SOB and weakness with onset today. Per the patient, he states he "just feel off, not as strong". Patient denies recent falls. He states he has been feeling increased SOB at rest , but denies chest pain. Had one episode of vomiting earlier today - non bilious , non bloody. He states his last drink was "4 to 5 days ago". Denies the following: fever, chills, nausea, chest pain, abdominal pain, ears/nose/throat pain, acute neck pain, acute back pain, headaches, dysuria, hematuria, diarrhea , hematochezia, and leg pain/swelling. He was noted to have an alcohol level of 258.5 and lactic acidosis. Repeat temp was 100.6 OBJECTIVE: Alert. Poor hygiene Vital Signs Period Temp Pulse Resp BP Sys/Jang Pulse Ox Last 24 Hr 98 F-100.6 F 90-93 16-17 104-112/78-82 98-100 HEENT: No Jaundice, eye redness or discharge, PERRLA, EOMI. Poor dentition. Normocephalic, atraumatic. External ears are normal and hearing is grossly intact. No nasal discharge. Neck: Supple, nontender. No palpable adenopathy or thyromegaly. No JVD Chest: Good effort. Clear to auscultation and percussion. Heart: Regular. No S3, rub or murmur Abdomen: Not distended, soft, nontender and no HSM. No rebound or guarding. Normoactive bowel sounds. Ext: Peripheral pulses intact. Stage 2 ulcer dorsum of left foot. Skin: Warm and dry. No petechiae, rash or ecchymosis. Neuro: Alert. Oriented x3. CN 2-12 grossly intact. No tremors or asterexis. Sensation grossly intact in all four extremities and DTR are symmetric. Current Medications Generic Name Dose Route Start Last Admin Trade Name Freq PRN Reason Stop Dose Admin Enoxaparin Sodium 40 mg 07/13/18 10:00 Lovenox - SQ DAILY CAREY Sodium Chloride 1,000 mls @ 1,000 mls/hr 07/13/18 05:10 Normal Saline - IV 07/13/18 06:09 ASDIR STA Sodium Chloride 1,000 mls @ 75 mls/hr 07/13/18 05:15 Normal Saline - IV ASDIR CAREY Home Medications Medication Instructions Recorded NK [No Known Home Medication] 07/03/18 Abnormal Lab Results 07/12/18 07/12/18 07/12/18 17:30 19:30 19:30 RBC 3.88 L Hgb 9.6 L Hct 30.3 L MCV 78.1 L MCH 24.6 L MCHC 31.5 L RDW 21.6 H Plt Count 484 H D Carbon Dioxide 20 L Lactic Acid 3.3 H* Alkaline Phosphatase 147 H B-Natriuretic Peptide 157.0 H Albumin 3.2 L Lipase Alcohol, Quantitative 07/12/18 07/13/18 19:30 00:18 RBC Hgb Hct MCV MCH MCHC RDW Plt Count Carbon Dioxide Lactic Acid 3.2 H* Alkaline Phosphatase B-Natriuretic Peptide Albumin Lipase 65 L Alcohol, Quantitative 258.5 H ASSESSMENT AND PLAN: 1. Alcohol intoxication/Rule out Sepsis - Lactic acidosis most likely due to alcohol intoxication, but will rule out sepsis due to infected left foot ulcer. Sepsis work up, wound culture and treatment with IV Ancef. CXR shows poor inspiratory effort but no acute infiltrate. Consult wound care and ID. Got 1 liter of banana bag in the ER. Will continue IV NS and trend lactic acid. Will implement [facility] alcohol withdrawal protocol, fall and aspiration precautions. Treat with thiamine and folic acid and monitor electrolytes (Ca,Mg, K,P). Mail Examiner patient about abstaining from alcohol and refer to alcohol detox upon discharge. 2. Hypoalbuminemia - Possibly due to combined effects of malnutrition and inflammation associated with comorbid chronic conditions. Will ensure adequate dietary protein intake and also consult community health director. 3. Tobacco Use We will provide patient all the necessary assistance to facilitate smoking cessation and prescribe Nicotine patch. 4. Low MCV Anemia - May not be entirely due to alcohol abuse. Will do basic anemia work up including serial stool guaiacs, reticulocyte count and iron studies. Will benefit from a colonoscopy. 5. Obesity - Will provide patient all the necessary assistance, counseling and positive reinforcement to facilitate weight loss. Consult community health director. 6. DVT prophylaxis - Lovenox 40 mg SQ q 24 hours. 7. Advance directives - Full code
[2018-07-13] MEDS: CEFAZOLIN 1 GM/D5W 1 GM/50 ML BAG IVPB SCH ×4 (05:29→20:39)
[2018-07-13] MEDS: SODIUM CHLORIDE 1,000 ML IV SCH (05:55)
[2018-07-13] MEDS ORDERED: LORazepam 2 MG/ML SDV VIAL IVPUSH PRN (06:42)
[2018-07-13 09:11] LABS: INR 1.23 (0.83-1.09); PROTHROMBIN TIME (PATIENT) 14.5 SEC (9.7-13.0)
[2018-07-13 09:14] LABS: ACTIVATED PTT 28.4 SECONDS (25.2-36.5)
[2018-07-13 09:16] LABS: HEMATOCRIT 26.6 % (35.4-49); HEMOGLOBIN 8.6 GM/dL (11.7-16.9); MCH 24.8 pg (25.7-33.7); MCHC 32.2 g/dl (32.0-35.9); MEAN CELL VOLUME 76.9 fl (80-96); MEAN PLT VOLUME 7.8 fl (7.5-11.1); PLATELET COUNT 409 K/MM3 (134-434); RBC 3.46 M/mm3 (4.00-5.60); RDW 20.9 % (11.9-15.9); RETICULOCYTES 1.88 % (0.5-1.5); WHITE BLOOD COUNT 8.3 K/mm3 (4.0-10.0)
[2018-07-13 09:37] LABS: ANION GAP 9 MMOL/L (8-16); BLOOD UREA NITROGEN 14 mg/dL (7-18); CALCIUM 8.1 mg/dL (8.5-10.1); CHLORIDE 110 mmol/L (98-107); CO2 22 mmol/L (21-32); CREATININE 0.6 mg/dL (0.55-1.3); GLUCOSE,RANDOM 90 mg/dL (74-106); MAGNESIUM 1.6 mg/dL (1.8-2.4); PHOSPHOROUS 3.2 mg/dL (2.5-4.9); POTASSIUM 3.7 mmol/L (3.5-5.1); SODIUM 141 mmol/L (136-145)
[2018-07-13] MEDS: THIAMINE HCL 100 MG TABLET (FP) PO SCH (10:17)
[2018-07-13] MEDS: ENOXAPARIN NA (PORCINE) 40 MG/0.4 ML DISP.SYRIN SQ SCH (10:17)
[2018-07-13] MEDS ORDERED: chlordiazePOXIDE HCL 25 MG CAPSULE PO SCH (11:00)
[2018-07-13] MEDS ORDERED: chlordiazePOXIDE HCL 25 MG CAPSULE PO PRN (11:20)
--- NOTE | 2018-07-13 11:35 | PN ---
Teaching Attending Note Name of Resident: Bertha Anderson ATTENDING PHYSICIAN STATEMENT I saw and evaluated the patient. I reviewed the resident's note and discussed the case with the resident. I agree with the resident's findings and plan as documented. SUBJECTIVE: no fever or chills. he feels better . No cough . No SOB. nO CP. pain in RUE is beter. no diarrhea. reports tight shoes and ulcers x 1 week with discharge OBJECTIVE: NAD , Awake, alert . comfortable in bed. MMM, no facial droop CV: RRR, no mRG Lungs: CTAB Ext : no edema on LE. L dorsal ulcer 1 cm in diameter, with no discharge , but minimal surrounding erythema and some tenderness . 0.5 cm laceration on R dorsal foot with no discharge. and no surrounding erythema. No crepitus felt on both feet ASSESSMENT AND PLAN: 63 y/o man with h/o HTN, Alcoholism and recent RUR fracture who presented with fever and b/l feet ulcers 1- Infected L foot ulcer wih surrounding cellulitis. R foot ulcer does not look infected. given the fever , will treat with IV abx. - cont cefazolin and follow wound cx. - if wound grows MRSA , then will cover - follow blood cx - advised getting bigger shoes 2- ETOH abuse. No signs of withdrawal. - monitor for withdrawal sx and use PRN librium - cont thiamine and start folic acid . 3- h/o HTN; Nl BP. DVT PX.
--- NOTE | 2018-07-13 12:16 | EKG ---
Test Reason : Blood Pressure : / mmHG Vent. Rate : 093 BPM Atrial Rate : 093 BPM P-R Int : 172 ms QRS Dur : 094 ms QT Int : 370 ms P-R-T Axes : 019 -37 041 degrees QTc Int : 460 ms NORMAL SINUS RHYTHM LEFT AXIS DEVIATION ABNORMAL ECG Confirmed by MD JESSY, JUNIOR ([id number]) on 07/13/2018 12:16:15 PM Referred By: Confirmed By:JUNIOR JIMÉNEZ MD
--- NOTE | 2018-07-13 13:22 | PN ---
Physical Exam: SUBJECTIVE: Patient seen and examined at bedside this morning. No acute events overnight. Patient is a 63 year old male with past medical history of HTN, ?Mesothelioma, EtOH abuse, and with known history of multiple ED visits for alcohol intoxication, presented with chills and "not feeling himself" for 1 day. Patient came from a retirement where he stayed for a day for detox, but could "not tolerate the place", so he left and went to [facility]. He reported having wounds on both feet for 1 week. He denies any chest pain, SOB, abdominal pain, diarrhea, urinary symptoms, headache, dizziness. At the ED, patient was noted to have lactic acidosis with temp of 100.6. He was given IV fluids and banana bag. He was started on Cefazolin. OBJECTIVE: Vital Signs Temperature 99.5 F 07/13/18 14:03 Pulse Rate 93 H 07/13/18 14:03 Respiratory Rate 18 07/13/18 14:03 Blood Pressure 139/90 07/13/18 14:03 O2 Sat by Pulse Oximetry (%) 94 L 07/13/18 09:08 GENERAL: The patient is awake, alert, and fully oriented, in no acute distress. HEAD: Normal with no signs of trauma. EYES: PERRLA, EOMI, sclera anicteric, conjunctiva clear. No ptosis. NECK: Trachea midline, full range of motion, supple. LUNGS: Breath sounds equal, clear to auscultation bilaterally. HEART: Regular rate and rhythm, S1, S2 without murmur, rub or gallop. ABDOMEN: Soft, +RUQ tenderness, nondistended, normoactive bowel sounds. EXTREMITIES: 2+ pulses, warm, well-perfused, no edema. B/L LE: +stage 2 ulcer on dorsum of left foot, +surrounding tenderness but no erythema or warmth. + laceration on dorsum of right foot. NEUROLOGICAL: Cranial nerves II through XII grossly intact. Normal speech, gait not observed. PSYCH: Normal mood, normal affect. SKIN: Warm, dry, normal turgor, no rashes or lesions noted Laboratory Results - last 24 hr 07/12/18 07/12/18 07/12/18 17:30 19:30 19:30 WBC 9.5 RBC 3.88 L Hgb 9.6 L Hct 30.3 L MCV 78.1 L MCH 24.6 L MCHC 31.5 L RDW 21.6 H Plt Count 484 H D MPV 7.6 Absolute Neuts (auto) 6.8 Neutrophils % 70.9 Lymphocytes % 18.0 Monocytes % 8.8 Eosinophils % 1.5 Basophils % 0.8 Nucleated RBC % 0 Retic Count PT with INR INR PTT (Actin FS) Sodium 138 Potassium 3.9 Chloride 105 Carbon Dioxide 20 L Anion Gap 13 BUN 12 Creatinine 1.0 Creat Clearance w eGFR > 60 Random Glucose 83 Lactic Acid 3.3 H* Calcium 8.6 Phosphorus Magnesium Ferritin Total Bilirubin 0.4 AST 34 ALT 30 Alkaline Phosphatase 147 H Creatine Kinase 84 Troponin I < 0.02 B-Natriuretic Peptide 157.0 H Total Protein 6.9 Albumin 3.2 L Lipase Vitamin B12 Alcohol, Quantitative Influenza A (Rapid) Influenza B (Rapid) 07/12/18 07/13/18 07/13/18 19:30 00:18 02:11 WBC RBC Hgb Hct MCV MCH MCHC RDW Plt Count MPV Absolute Neuts (auto) Neutrophils % Lymphocytes % Monocytes % Eosinophils % Basophils % Nucleated RBC % Retic Count PT with INR INR PTT (Actin FS) Sodium Potassium Chloride Carbon Dioxide Anion Gap BUN Creatinine Creat Clearance w eGFR Random Glucose Lactic Acid 3.2 H* Calcium Phosphorus Magnesium 1.8 Ferritin Total Bilirubin AST ALT Alkaline Phosphatase Creatine Kinase Troponin I < 0.02 B-Natriuretic Peptide Total Protein Albumin Lipase 65 L Vitamin B12 Alcohol, Quantitative 258.5 H Influenza A (Rapid) Influenza B (Rapid) 07/13/18 07/13/18 07/13/18 04:30 05:09 07:50 WBC 8.3 RBC 3.46 L Hgb 8.6 L Hct 26.6 L MCV 76.9 L MCH 24.8 L MCHC 32.2 RDW 20.9 H Plt Count 409 MPV 7.8 Absolute Neuts (auto) Neutrophils % Lymphocytes % Monocytes % Eosinophils % Basophils % Nucleated RBC % Retic Count 1.88 H D PT with INR INR PTT (Actin FS) Sodium Potassium Chloride Carbon Dioxide Anion Gap BUN Creatinine Creat Clearance w eGFR Random Glucose Lactic Acid 1.9 Calcium Phosphorus Magnesium Ferritin Total Bilirubin AST ALT Alkaline Phosphatase Creatine Kinase Troponin I B-Natriuretic Peptide Total Protein Albumin Lipase Vitamin B12 Alcohol, Quantitative Influenza A (Rapid) Negative Influenza B (Rapid) Negative 07/13/18 07/13/18 07:50 07:50 WBC RBC Hgb Hct MCV MCH MCHC RDW Plt Count MPV Absolute Neuts (auto) Neutrophils % Lymphocytes % Monocytes % Eosinophils % Basophils % Nucleated RBC % Retic Count PT with INR 14.50 H INR 1.23 H PTT (Actin FS) 28.4 Sodium 141 Potassium 3.7 Chloride 110 H Carbon Dioxide 22 Anion Gap 9 BUN 14 Creatinine 0.6 Creat Clearance w eGFR > 60 Random Glucose 90 Lactic Acid Calcium 8.1 L Phosphorus 3.2 Magnesium 1.6 L Ferritin 64.6 Total Bilirubin AST ALT Alkaline Phosphatase Creatine Kinase Troponin I B-Natriuretic Peptide Total Protein Albumin Lipase Vitamin B12 268 Alcohol, Quantitative Influenza A (Rapid) Influenza B (Rapid) Active Medications Generic Name Dose Route Start Last Admin Trade Name Freq PRN Reason Stop Dose Admin Chlordiazepoxide HCl 25 mg 07/13/18 11:20 Librium - PO 07/16/18 11:19 Q4H PRN WITHDRAWAL(CONT SUBST) Enoxaparin Sodium 40 mg 07/13/18 10:00 07/13/18 10:17 Lovenox - SQ 40 mg DAILY CAREY Administration Folic Acid 1 mg 07/14/18 10:00 Folic Acid - PO DAILY CAREY Sodium Chloride 1,000 mls @ 75 mls/hr 07/13/18 05:15 07/13/18 05:55 Normal Saline - IV 75 mls/hr ASDIR CAREY Administration Cefazolin Sodium 1 gm in 50 mls @ 100 mls/hr 07/13/18 13:00 07/13/18 13:21 Ancef 1 Gm Premixed Ivpb - IVPB 100 mls/hr Q8H CAREY Administration Thiamine HCl 200 mg 07/13/18 10:00 07/13/18 10:17 Vitamin B1 - PO 200 mg DAILY CAREY Administration ASSESSMENT/PLAN: Patient is a 63 year old male with past medical history of HTN, ?Mesothelioma, EtOH abuse, and with known history of multiple ED visits for alcohol intoxication, presented with chills and "not feeling himself" for 1 day. #Cellulitis on bilateral feet -Continue Cefazolin 1gm q8 -Blood cx and wound cx done. -Left foot xray: no sign fracture subluxation. No sign of blastic or lytic findings. There are vascular calcifications. -Will advise to use bigger shoes on discharge #EtOH abuse -No signs of withdrawal now. -Will give Librium 25mg q4h PRN -Continue Thiamine 100mg daily and Folic acid 1mg daily. #Microcytic anemia -Atypical for EtOH abuse -Iron studies, retic count -FOBT #Hypertension -Continue home Amlodipine 5mg daily. #FEN -IV NS at 75ml/hr -Electrolytes wnl, routine bmp monitoring -Sodium-controlled diet #Prophylaxis -Lovenox 40mg sq daily #Disposition -full code Visit type - Emergency Visit Emergency Visit: Yes ED Registration Date: 07/13/18 Care time: The patient presented to the Emergency Department on the above date and was hospitalized for further evaluation of their emergent condition. - New Patient This patient is new to me today: Yes Date on this admission: 07/13/18 - Critical Care Critical Care patient: No
[2018-07-13 14:12] VITALS: BMI 33.7
[2018-07-13 18:32] LABS: URINE APPEARANCE CLEAR; URINE BILIRUBIN NEGATIVE (<2.0 mg/dL); URINE COLOR YELLOW; URINE GLUCOSE (UA) NEGATIVE (NEGATIVE); URINE KETONE NEGATIVE (NEGATIVE); URINE LEUK ESTERASE TRACE (NEGATIVE); URINE NITRITE NEGATIVE (NEGATIVE); URINE PROTEIN NEGATIVE (NEGATIVE); URINE UROBILINOGEN NEGATIVE mg/dL (0.2-1.0)
[2018-07-14] MEDS: CEFAZOLIN 1 GM/D5W 1 GM/50 ML BAG IVPB SCH ×3 (05:28→20:35)
[2018-07-14] MEDS: SODIUM CHLORIDE 1,000 ML IV SCH (05:29)
[2018-07-14 08:07] LABS: SERUM IRON SATURATION 5 % (15-55); TOTAL IRON BINDING CAPACITY 329 ug/dL (250-450); UIBC 311 ug/dL (111-343)
[2018-07-14] MEDS: ENOXAPARIN NA (PORCINE) 40 MG/0.4 ML DISP.SYRIN SQ SCH (10:28)
[2018-07-14] MEDS: THIAMINE HCL 100 MG TABLET (FP) PO SCH (10:29)
[2018-07-14] MEDS: FOLIC ACID 1 MG TABLET (FP) PO SCH (10:29)
[2018-07-14] MEDS: amLODIPine BESYLATE 5 MG TABLET (FP) PO SCH (10:29)
[2018-07-14] MEDS: PANTOPRAZOLE 40 MG TABLET (FP) PO SCH (10:29)
[2018-07-14] MEDS ORDERED: chlordiazePOXIDE HCL 25 MG CAPSULE PO SCH (11:00)
[2018-07-14 11:06] LABS: ANION GAP 11 MMOL/L (8-16); BLOOD UREA NITROGEN 6 mg/dL (7-18); CALCIUM 8.7 mg/dL (8.5-10.1); CHLORIDE 104 mmol/L (98-107); CO2 23 mmol/L (21-32); CREATININE 0.4 mg/dL (0.55-1.3); GLUCOSE,RANDOM 84 mg/dL (74-106); MAGNESIUM 1.6 mg/dL (1.8-2.4); PHOSPHOROUS 3.2 mg/dL (2.5-4.9); POTASSIUM 3.7 mmol/L (3.5-5.1); SODIUM 138 mmol/L (136-145)
[2018-07-14 12:05] LABS: HEMATOCRIT 29.8 % (35.4-49); HEMOGLOBIN 9.5 GM/dL (11.7-16.9); MCH 24.7 pg (25.7-33.7); MCHC 31.9 g/dl (32.0-35.9); MEAN CELL VOLUME 77.2 fl (80-96); PLATELET COUNT 459 K/MM3 (134-434); RBC 3.86 M/mm3 (4.00-5.60); RDW 21.4 % (11.9-15.9); WHITE BLOOD COUNT 10.2 K/mm3 (4.0-10.0)
--- NOTE | 2018-07-14 18:12 | PN ---
Teaching Attending Note Name of Resident: Bertha Anderson ATTENDING PHYSICIAN STATEMENT I saw and evaluated the patient. I reviewed the resident's note and discussed the case with the resident. I agree with the resident's findings and plan as documented. SUBJECTIVE: Patient is feeling better, no acute distress, no nausea or vomiting. OBJECTIVE: Vital Signs Temperature 100.5 F H 07/14/18 17:14 Pulse Rate 95 H 07/14/18 17:14 Respiratory Rate 20 07/14/18 17:14 Blood Pressure 141/87 07/14/18 17:14 O2 Sat by Pulse Oximetry (%) 98 07/14/18 10:49 GENERAL: The patient is awake, alert, and fully oriented, in no acute distress. HEAD: Normal with no signs of trauma. EYES: PERRLA, EOMI, sclera anicteric, conjunctiva clear. NECK: Trachea midline, full range of motion, supple. LUNGS: Breath sounds equal, clear to auscultation bilaterally. HEART: Regular rate and rhythm, S1, S2 without murmur, rub or gallop. ABDOMEN: Soft, +RUQ tenderness, nondistended, normoactive bowel sounds. EXTREMITIES: 2+ pulses, warm, no edema. B/L LE: +stage 2 ulcer on dorsum of left foot, +surrounding tenderness but no erythema or warmth. +laceration on dorsum of right foot. NEUROLOGICAL: Cranial nerves II through XII grossly intact. Normal speech, gait not observed. PSYCH: Normal mood, normal affect. SKIN: Warm, dry, normal turgor, no rashes or lesions noted CBCD WBC 10.2 K/mm3 (4.0-10.0) H 07/14/18 09:55 RBC 3.86 M/mm3 (4.00-5.60) L 07/14/18 09:55 Hgb 9.5 GM/dL (11.7-16.9) L 07/14/18 09:55 Hct 29.8 % (35.4-49) L 07/14/18 09:55 MCV 77.2 fl (80-96) L 07/14/18 09:55 MCHC 31.9 g/dl (32.0-35.9) L 07/14/18 09:55 RDW 21.4 % (11.9-15.9) H 07/14/18 09:55 Plt Count 459 K/MM3 (134-434) H 07/14/18 09:55 MPV 8.0 fl (7.5-11.1) 07/14/18 09:55 CMP Sodium 138 mmol/L (136-145) 07/14/18 09:55 Potassium 3.7 mmol/L (3.5-5.1) 07/14/18 09:55 Chloride 104 mmol/L (98-107) 07/14/18 09:55 Carbon Dioxide 23 mmol/L (21-32) 07/14/18 09:55 Anion Gap 11 MMOL/L (8-16) 07/14/18 09:55 BUN 6 mg/dL (7-18) L 07/14/18 09:55 Creatinine 0.4 mg/dL (0.55-1.3) L 07/14/18 09:55 Creat Clearance w eGFR > 60 (>60) 07/14/18 09:55 Random Glucose 84 mg/dL (74-106) 07/14/18 09:55 Calcium 8.7 mg/dL (8.5-10.1) 07/14/18 09:55 Total Bilirubin 0.4 mg/dL (0.2-1) 07/12/18 19:30 AST 34 U/L (15-37) 07/12/18 19:30 ALT 30 U/L (13-61) 07/12/18 19:30 Alkaline Phosphatase 147 U/L (45-117) H 07/12/18 19:30 Total Protein 6.9 g/dl (6.4-8.2) 07/12/18 19:30 Albumin 3.2 g/dl (3.4-5.0) L 07/12/18 19:30 CARDIAC ENZYMES Creatine Kinase 84 U/L (26-308) 07/12/18 19:30 Troponin I < 0.02 ng/ml (0.00-0.05) 07/13/18 02:11 Current Medications Generic Name Dose Route Start Last Admin Trade Name Freq PRN Reason Stop Dose Admin Amlodipine Besylate 5 mg 07/14/18 10:00 07/14/18 10:29 Norvasc - PO 5 mg DAILY CAREY Administration Chlordiazepoxide HCl 25 mg 07/13/18 11:20 07/13/18 18:46 Librium - PO 07/16/18 11:19 25 mg Q4H PRN Administration WITHDRAWAL(CONT SUBST) Enoxaparin Sodium 40 mg 07/13/18 10:00 07/14/18 10:28 Lovenox - SQ 40 mg DAILY CAREY Administration Folic Acid 1 mg 07/14/18 10:00 07/14/18 10:29 Folic Acid - PO 1 mg DAILY CAREY Administration Sodium Chloride 1,000 mls @ 75 mls/hr 07/13/18 05:15 07/14/18 05:29 Normal Saline - IV 75 mls/hr ASDIR CAREY Administration Cefazolin Sodium 1 gm in 50 mls @ 100 mls/hr 07/13/18 13:00 07/14/18 13:31 Ancef 1 Gm Premixed Ivpb - IVPB Not Given Q8H CAREY Pantoprazole Sodium 40 mg 07/14/18 10:00 07/14/18 10:29 Protonix - PO 40 mg DAILY CAREY Administration Thiamine HCl 200 mg 07/13/18 10:00 07/14/18 10:29 Vitamin B1 - PO 200 mg DAILY CAREY Administration ASSESSMENT AND PLAN: 63 y/o man with h/o HTN, Alcoholism and recent RUR fracture who presented with fever and b/l feet ulcers # Infected L foot ulcer wih surrounding cellulitis. R foot ulcer does not look infected. NO NEED TO CONTINUE ANTIBIOTIC AT THIS TIME. cont cefazolin and follow wound cx. follow blood cx , SUGGEST TO GET THE PATIENT bigger shoes # ETOH abuse. No signs of withdrawal. LIBRIUM PRN IF NEEDED, cont thiamine and start folic acid . #hX OF HTN; Nl BP. DVT PX.
--- NOTE | 2018-07-14 18:38 | PN ---
Physical Exam: SUBJECTIVE: Patient seen and examined at bedside this morning. no acute events overnight. Patient reports abdominal pain. No nausea, vomiting, fever, chills, diarrhea. OBJECTIVE: Vital Signs Period Temp Pulse Resp BP Sys/Jang Pulse Ox Last 24 Hr 98.0 F-100.5 F 92-98 18-20 141-173/87-97 97-98 GENERAL: The patient is awake, alert, and fully oriented, in no acute distress. HEAD: Normal with no signs of trauma. EYES: PERRLA, EOMI, sclera anicteric, conjunctiva clear. No ptosis. NECK: Trachea midline, full range of motion, supple. LUNGS: Breath sounds equal, clear to auscultation bilaterally. HEART: Regular rate and rhythm, S1, S2 without murmur, rub or gallop. ABDOMEN: Soft, +RUQ tenderness, nondistended, normoactive bowel sounds. EXTREMITIES: 2+ pulses, warm, well-perfused, no edema. B/L LE: +stage 2 ulcer on dorsum of left foot, +surrounding tenderness but no erythema or warmth. + laceration on dorsum of right foot. NEUROLOGICAL: Cranial nerves II through XII grossly intact. Normal speech, gait not observed. PSYCH: Normal mood, normal affect. SKIN: Warm, dry, normal turgor, no rashes or lesions noted Laboratory Results - last 24 hr 07/13/18 07/13/18 07/14/18 07:50 18:00 09:55 WBC RBC Hgb Hct MCV MCH MCHC RDW Plt Count MPV Sodium 138 Potassium 3.7 Chloride 104 Carbon Dioxide 23 Anion Gap 11 BUN 6 L Creatinine 0.4 L Creat Clearance w eGFR > 60 Random Glucose 84 Calcium 8.7 Phosphorus 3.2 Magnesium 1.6 L Iron 18 L TIBC 329 Iron Saturation 5 L Transferrin 263 Urine WBC (Auto) 2 Urine RBC (Auto) None 07/14/18 09:55 WBC 10.2 H RBC 3.86 L Hgb 9.5 L Hct 29.8 L MCV 77.2 L MCH 24.7 L MCHC 31.9 L RDW 21.4 H Plt Count 459 H MPV 8.0 Sodium Potassium Chloride Carbon Dioxide Anion Gap BUN Creatinine Creat Clearance w eGFR Random Glucose Calcium Phosphorus Magnesium Iron TIBC Iron Saturation Transferrin Urine WBC (Auto) Urine RBC (Auto) Active Medications Generic Name Dose Route Start Last Admin Trade Name Freq PRN Reason Stop Dose Admin Amlodipine Besylate 5 mg 07/14/18 10:00 07/14/18 10:29 Norvasc - PO 5 mg DAILY CAREY Administration Chlordiazepoxide HCl 25 mg 07/13/18 11:20 07/13/18 18:46 Librium - PO 07/16/18 11:19 25 mg Q4H PRN Administration WITHDRAWAL(CONT SUBST) Enoxaparin Sodium 40 mg 07/13/18 10:00 07/14/18 10:28 Lovenox - SQ 40 mg DAILY CAREY Administration Folic Acid 1 mg 07/14/18 10:00 07/14/18 10:29 Folic Acid - PO 1 mg DAILY CAREY Administration Sodium Chloride 1,000 mls @ 75 mls/hr 07/13/18 05:15 07/14/18 05:29 Normal Saline - IV 75 mls/hr ASDIR CAREY Administration Cefazolin Sodium 1 gm in 50 mls @ 100 mls/hr 07/13/18 13:00 07/14/18 13:31 Ancef 1 Gm Premixed Ivpb - IVPB Not Given Q8H CAREY Pantoprazole Sodium 40 mg 07/14/18 10:00 07/14/18 10:29 Protonix - PO 40 mg DAILY CAREY Administration Thiamine HCl 200 mg 07/13/18 10:00 07/14/18 10:29 Vitamin B1 - PO 200 mg DAILY CAREY Administration ASSESSMENT/PLAN: Patient is a 63 year old male with past medical history of HTN, ?Mesothelioma, EtOH abuse, and with known history of multiple ED visits for alcohol intoxication, presented with chills and "not feeling himself" for 1 day. #Cellulitis on bilateral feet -Continue Cefazolin 1gm q8 -Blood cx - no growth -wound cx- +Staphylococcus species -Left foot xray: no sign fracture subluxation. No sign of blastic or lytic findings. There are vascular calcifications. -Will advise to use bigger shoes on discharge #EtOH abuse -No signs of withdrawal now. -Will give Librium 25mg q4h PRN -Continue Thiamine 100mg daily and Folic acid 1mg daily. #Microcytic anemia -Atypical for EtOH abuse -Iron studies, retic count -FOBT could not be done as patient refuses to submit stool and refuse AMARILYS. #Hypertension -Continue home Amlodipine 5mg daily. #FEN -IV NS at 75ml/hr -Electrolytes wnl, routine bmp monitoring -Sodium-controlled diet #Prophylaxis -Lovenox 40mg sq daily #Disposition -full code Visit type - Emergency Visit Emergency Visit: Yes ED Registration Date: 07/13/18 Care time: The patient presented to the Emergency Department on the above date and was hospitalized for further evaluation of their emergent condition. - New Patient This patient is new to me today: No - Critical Care Critical Care patient: No
[2018-07-15] MEDS: CEFAZOLIN 1 GM/D5W 1 GM/50 ML BAG IVPB SCH (05:57)
[2018-07-15 07:48] LABS: HEMATOCRIT 29.6 % (35.4-49); HEMOGLOBIN 9.4 GM/dL (11.7-16.9); MCH 24.3 pg (25.7-33.7); MCHC 31.8 g/dl (32.0-35.9); MEAN CELL VOLUME 76.4 fl (80-96); MEAN PLT VOLUME 7.7 fl (7.5-11.1); PLATELET COUNT 465 K/MM3 (134-434); RBC 3.87 M/mm3 (4.00-5.60); RDW 21.2 % (11.9-15.9); WHITE BLOOD COUNT 9.5 K/mm3 (4.0-10.0)
[2018-07-15 08:15] LABS: ANION GAP 8 MMOL/L (8-16); BLOOD UREA NITROGEN 6 mg/dL (7-18); CALCIUM 8.4 mg/dL (8.5-10.1); CHLORIDE 104 mmol/L (98-107); CO2 26 mmol/L (21-32); CREATININE 0.5 mg/dL (0.55-1.3); GLUCOSE,RANDOM 79 mg/dL (74-106); MAGNESIUM 1.7 mg/dL (1.8-2.4); PHOSPHOROUS 3.5 mg/dL (2.5-4.9); POTASSIUM 3.6 mmol/L (3.5-5.1); SODIUM 138 mmol/L (136-145)
[2018-07-15] MEDS ORDERED: PT OWN MED DRAWER 7, Y5N ONE (09:37)
[2018-07-15] MEDS: amLODIPine BESYLATE 5 MG TABLET (FP) PO SCH (09:41)
[2018-07-15] MEDS: FOLIC ACID 1 MG TABLET (FP) PO SCH (09:41)
[2018-07-15] MEDS: THIAMINE HCL 100 MG TABLET (FP) PO SCH (09:42)
[2018-07-15] MEDS: ENOXAPARIN NA (PORCINE) 40 MG/0.4 ML DISP.SYRIN SQ SCH (09:42)
[2018-07-15] MEDS: PANTOPRAZOLE 40 MG TABLET (FP) PO SCH (09:42)
[2018-07-15 10:43] VITALS: BP 153/85; PULSE 87; TEMP 99.4
[2018-07-15] MEDS ORDERED: chlordiazePOXIDE 5 MG CAPSULE PO SCH (11:00)
--- NOTE | 2018-07-15 13:24 | PN ---
Physical Exam: SUBJECTIVE: Patient seen and examined OBJECTIVE: Vital Signs Period Temp Pulse Resp BP Sys/Jang Pulse Ox Last 24 Hr 98.2 F-100.5 F 87-95 18-20 141-173/73-88 98-98 GENERAL: The patient is awake, alert, and fully oriented, in no acute distress. HEAD: Normal with no signs of trauma. EYES: PERRL, extraocular movements intact, sclera anicteric, conjunctiva clear. No ptosis. ENT: Ears normal, nares patent, oropharynx clear without exudates, moist mucous membranes. NECK: Trachea midline, full range of motion, supple. LUNGS: Breath sounds equal, clear to auscultation bilaterally, no wheezes, no crackles, no accessory muscle use. HEART: Regular rate and rhythm, S1, S2 without murmur, rub or gallop. ABDOMEN: Soft, nontender, nondistended, normoactive bowel sounds, no guarding, no rebound, no hepatosplenomegaly, no masses. EXTREMITIES: 2+ pulses, warm, well-perfused, no edema. NEUROLOGICAL: Cranial nerves II through XII grossly intact. Normal speech, gait not observed. PSYCH: Normal mood, normal affect. SKIN: Warm, dry, normal turgor, no rashes or lesions noted Laboratory Results - last 24 hr 07/13/18 07/15/18 07/15/18 07:50 06:00 06:00 WBC 9.5 RBC 3.87 L Hgb 9.4 L Hct 27.4 L 29.6 L MCV 76.4 L MCH 24.3 L MCHC 31.8 L RDW 21.2 H Plt Count 465 H MPV 7.7 Sodium 138 Potassium 3.6 Chloride 104 Carbon Dioxide 26 Anion Gap 8 BUN 6 L Creatinine 0.5 L Creat Clearance w eGFR > 60 Random Glucose 79 Calcium 8.4 L Phosphorus 3.5 Magnesium 1.7 L Folate 1647 Folate Hemolysate 451.3 ASSESSMENT/PLAN:
--- NOTE | 2018-07-15 13:35 | DS ---
Physical Exam: SUBJECTIVE: Patient seen and examined at bedside this morning. No acute events overnight. Patient reports foot and knee pain. As per nurse, has refused all PO and IV medications. At noon, we were informed that patient was not in his bed anymore and took all of his things. OBJECTIVE: Vital Signs Period Temp Pulse Resp BP Sys/Jang Pulse Ox Last 24 Hr 98.2 F-100.5 F 87-95 18-20 141-173/73-88 98-98 PHYSICAL EXAM GENERAL: The patient is awake, alert, and fully oriented, in no acute distress. HEAD: Normal with no signs of trauma. EYES: PERRLA, EOMI, sclera anicteric, conjunctiva clear. No ptosis. NECK: Trachea midline, full range of motion, supple. LUNGS: Breath sounds equal, clear to auscultation bilaterally. HEART: Regular rate and rhythm, S1, S2 without murmur, rub or gallop. ABDOMEN: Soft, +RUQ tenderness, nondistended, normoactive bowel sounds. EXTREMITIES: 2+ pulses, warm, well-perfused, no edema. B/L LE: +stage 2 ulcer on dorsum of left foot, +surrounding tenderness but no erythema or warmth. + laceration on dorsum of right foot. NEUROLOGICAL: Cranial nerves II through XII grossly intact. Normal speech, gait not observed. PSYCH: Normal mood, normal affect. SKIN: Warm, dry, normal turgor, no rashes or lesions noted LABS Laboratory Results - last 24 hr 07/13/18 07/15/18 07/15/18 07:50 06:00 06:00 WBC 9.5 RBC 3.87 L Hgb 9.4 L Hct 27.4 L 29.6 L MCV 76.4 L MCH 24.3 L MCHC 31.8 L RDW 21.2 H Plt Count 465 H MPV 7.7 Sodium 138 Potassium 3.6 Chloride 104 Carbon Dioxide 26 Anion Gap 8 BUN 6 L Creatinine 0.5 L Creat Clearance w eGFR > 60 Random Glucose 79 Calcium 8.4 L Phosphorus 3.5 Magnesium 1.7 L Folate 1647 Folate Hemolysate 451.3 HOSPITAL COURSE: Date of Admission:07/15/18 Date of Discharge: 07/15/18 Patient is a 63 year old male with past medical history of HTN, ?Mesothelioma, EtOH abuse, and with known history of multiple ED visits for alcohol intoxication, presented with chills and "not feeling himself" for 1 day. Patient was noted to have wounds on both dorsum of his feet. He was started on Cefazolin. Wound cultures grew MSSA and enterococcus. Patient was also noted to have microcytic anemia. Iron studies revealed low iron. Patient refused to submit stool or AMARILYS. Plan to discharge patient with GI follow up, but patient eloped. Minutes to complete discharge: 40 Discharge Summary Reason For Visit: LACTIC ACIDOSIS Condition: Stable - Instructions Diet, Activity, Other Instructions: Your visit You were admitted in the hospital because you had low grade fever. You were noted to have wounds on both your feet. You were given antibiotics and IV fluids. You were also noted to have low blood count. It is recommended that you follow-up with a client associate, you may need to have an endoscopy and colonoscopy to check if you have bleeding in your stomach. Medications Continue your home medications as prescribed. Care -Wash the wounds with soap and water daily. -Apply antibiotic ointment to the affected area and cover with clean dry dressing. -You are advised to wear bigger shoes. Follow-up Please follow up with the following doctors: -Please also follow-up with your primary care doctor within 1-2 weeks. Call the medical clinic at [phone] upon discharge to schedule a follow up appointment. -Follow-up with the client associate (Dr. Pat) within 2 weeks. Additional info Call 911 or go to the ED if with any worsening fever, chills, headache, dizziness, nausea, vomiting, shortness of breath or any new concerns noted. Referrals: [facility] [place] [Provider Group] - 1 Week Monty Pat DO [Staff Physician] - 2 Weeks Disposition: ELOPED - Home Medications Comprehensive Discharge Medication List: Ambulatory Orders Amlodipine Besylate [Norvasc -] 5 mg PO DAILY 07/13/18 Folic Acid 1 mg PO DAILY 07/13/18 Pantoprazole Sodium [Protonix] 40 mg PO DAILY 07/13/18 Thiamine HCl [Vitamin B1 -] 100 mg PO DAILY 07/13/18 Bacitracin - [Bacitracin Topical Ointment -] 1 applic TP DAILY #1 tube 07/14/18 Gauze Bandage [Gauze Pad] 1 each TP DAILY #5 bandage 07/14/18 This patient is new to me today: No Emergency Visit: Yes ED Registration Date: 07/15/18 Care time: The patient presented to the Emergency Department on the above date and was hospitalized for further evaluation of their emergent condition. Critical Care patient: No - Discharge Referral Referred to [facility] No
--- NOTE | 2018-07-15 19:18 | PN ---
Teaching Attending Note Name of Resident: Bertha Anderson ATTENDING PHYSICIAN STATEMENT I saw and evaluated the patient. I reviewed the resident's note and discussed the case with the resident. I agree with the resident's findings and plan as documented. SUBJECTIVE: pATIENT is feeling better. no fever or chills. OBJECTIVE: Vital Signs Temperature 99.4 F 07/15/18 08:15 Pulse Rate 87 07/15/18 08:15 Respiratory Rate 20 07/15/18 08:15 Blood Pressure 153/85 07/15/18 08:15 O2 Sat by Pulse Oximetry (%) 98 07/15/18 02:00 GENERAL: The patient is awake, alert, and fully oriented, in no acute distress. HEAD: Normal with no signs of trauma. EYES: PERRLA, EOMI, sclera anicteric, conjunctiva clear. NECK: Trachea midline, full range of motion, supple. LUNGS: Breath sounds equal, clear to auscultation bilaterally. HEART: Regular rate and rhythm, S1, S2 without murmur, rub or gallop. ABDOMEN: Soft, +RUQ tenderness, nondistended, normoactive bowel sounds. EXTREMITIES: 2+ pulses, warm, no edema. B/L LE: +stage 2 ulcer on dorsum of left foot, surrounding tenderness but no erythema or warmth. +laceration on dorsum of right foot. NEUROLOGICAL: Cranial nerves II through XII grossly intact. Normal speech, gait not observed. PSYCH: Normal mood, normal affect. SKIN: Warm, dry, normal turgor, no rashes or lesions noted CBCD WBC 9.5 K/mm3 (4.0-10.0) 07/15/18 06:00 RBC 3.87 M/mm3 (4.00-5.60) L 07/15/18 06:00 Hgb 9.4 GM/dL (11.7-16.9) L 07/15/18 06:00 Hct 29.6 % (35.4-49) L 07/15/18 06:00 MCV 76.4 fl (80-96) L 07/15/18 06:00 MCHC 31.8 g/dl (32.0-35.9) L 07/15/18 06:00 RDW 21.2 % (11.9-15.9) H 07/15/18 06:00 Plt Count 465 K/MM3 (134-434) H 07/15/18 06:00 MPV 7.7 fl (7.5-11.1) 07/15/18 06:00 CMP Sodium 138 mmol/L (136-145) 07/15/18 06:00 Potassium 3.6 mmol/L (3.5-5.1) 07/15/18 06:00 Chloride 104 mmol/L (98-107) 07/15/18 06:00 Carbon Dioxide 26 mmol/L (21-32) 07/15/18 06:00 Anion Gap 8 MMOL/L (8-16) 07/15/18 06:00 BUN 6 mg/dL (7-18) L 07/15/18 06:00 Creatinine 0.5 mg/dL (0.55-1.3) L 07/15/18 06:00 Creat Clearance w eGFR > 60 (>60) 07/15/18 06:00 Random Glucose 79 mg/dL (74-106) 07/15/18 06:00 Calcium 8.4 mg/dL (8.5-10.1) L 07/15/18 06:00 Total Bilirubin 0.4 mg/dL (0.2-1) 07/12/18 19:30 AST 34 U/L (15-37) 07/12/18 19:30 ALT 30 U/L (13-61) 07/12/18 19:30 Alkaline Phosphatase 147 U/L (45-117) H 07/12/18 19:30 Total Protein 6.9 g/dl (6.4-8.2) 07/12/18 19:30 Albumin 3.2 g/dl (3.4-5.0) L 07/12/18 19:30 CARDIAC ENZYMES Creatine Kinase 84 U/L (26-308) 07/12/18 19:30 Troponin I < 0.02 ng/ml (0.00-0.05) 07/13/18 02:11 Home Medications Medication Instructions Recorded Amlodipine Besylate [Norvasc -] 5 mg PO DAILY 07/13/18 Folic Acid 1 mg PO DAILY 07/13/18 Pantoprazole Sodium [Protonix] 40 mg PO DAILY 07/13/18 Thiamine HCl [Vitamin B1 -] 100 mg PO DAILY 07/13/18 Bacitracin - [Bacitracin Topical 1 applic TP DAILY #1 tube 07/14/18 Ointment -] Gauze Bandage [Gauze Pad] 1 each TP DAILY #5 bandage 07/14/18 Microbiology 07/12/18 20:50 Abscess Gram Stain - Final 07/12/18 20:50 Abscess Wound Culture - Preliminary Presumptive Mssa (Pbp2a Neg) Group D Strep Or Entero Coccus 07/12/18 07:50 Blood - Peripheral Venous Blood Culture - Preliminary NO GROWTH OBTAINED AFTER 48 HOURS, INCUBATION TO CONTINUE FOR 3 DAYS. 07/13/18 17:46 Urine - Urine Clean Catch Urine Culture - Final NO GROWTH OBTAINED 07/12/18 19:38 Blood - Peripheral Venous Blood Culture - Preliminary NO GROWTH OBTAINED AFTER 48 HOURS, INCUBATION TO CONTINUE FOR 3 DAYS. ASSESSMENT AND PLAN: 63 y/o man with h/o HTN, Alcoholism and recent RUR fracture who presented with fever and b/l feet ulcers # Left foot ulcer without any infection/cellulitis is noted, no antibiotic is needed. NO NEED for IV ANTIBIOTIC AT THIS TIME. cont cefazolin and follow wound cx. positive for MSSA, blood cx negative , SUGGEST TO GET THE PATIENT bigger shoes. patient elopped from the hospital. no further treatment was initiated since eloped. # ETOH abuse. No signs of withdrawal. LIBRIUM PRN IF NEEDED, cont thiamine and start folic acid . #hX OF HTN; Nl BP. DVT PX.
[2018-07-16] MEDS ORDERED: chlordiazePOXIDE HCL 10 MG CAPSULE PO SCH (11:00)
== END 2018-07-15 12:15 | disposition left against medical advice (07) | DRG 383 ==
LOC: JER 16:20 → JERBED 07-13 04:24 → J8W 07-13 12:48 → OBSVTOIN 07-15 11:04
PROVIDERS: ADMIT Internal Medicine; ATTEND Internal Medicine
DX: L03.116 Cellulitis of left lower limb (principal); E87.2 Acidosis; L97.919 Non-pressure chronic ulcer of unspecified part of right lower leg with unspecified severity; L97.929 Non-pressure chronic ulcer of unspecified part of left lower leg with unspecified severity; E88.09 Other disorders of plasma-protein metabolism, not elsewhere classified; C45.9 Mesothelioma, unspecified; B95.2 Enterococcus as the cause of diseases classified elsewhere; B95.61 Methicillin susceptible Staphylococcus aureus infection as the cause of diseases classified elsewhere; Y90.8 Blood alcohol level of 240 mg/100 ml or more; I10 Essential (primary) hypertension; Z68.33 Body mass index [BMI] 33.0-33.9, adult; Z59.0 Homelessness; E66.9 Obesity, unspecified; F17.210 Nicotine dependence, cigarettes, uncomplicated; F10.129 Alcohol abuse with intoxication, unspecified; D50.9 Iron deficiency anemia, unspecified; Z91.14 Patient's other noncompliance with medication regimen
CPT/HCPCS: 36415; 71045-TC-FY; 73630-TC-LT; 80048; 80053; 80307; 81003; 81015; 82550; 82607; 82728; 82747; 83540; 83550; 83605; 83690; 83735; 83880; 84100; 84466; 84484; 85014; 85025; 85027; 85044; 85610; 85730; 87040; 87070; 87086; 87186; 87205; 87804; 93005; 93010; 99284-25; G0378; J7030

== ENCOUNTER 2018-07-18 15:16 | Emergency (ER) | payer OTHER ==
[2018-07-18 16:14] VITALS: BP 106/42; PULSE 85; TEMP 97.6; BMI 33.0
--- NOTE | 2018-07-18 16:22 | PDOC ---
History of Present Illness - General Chief Complaint: Alcohol intoxication Stated Complaint: INTOX History Source: Patient Exam Limitations: No Limitations - History of Present Illness Initial Comments: 07/18/18 16:24 63 yo M with a hx of HTN, mesothelioma, ETOH abuse, multiple fractures of the ribs and extremities in the past, and fractures in the vertebral column presents to the emergency department with difficulty walking for the past 1 day s/p mechanical fall landing on his left sided face. Per the patient, he was walking down the street and tripped on the sidewalk, landing on his face. He states he had pain throughout the left eye and in his left hip. He was recently admitted for an infection of the foot and did not take his outpatient antibiotics. Denies the following: fever, chills, nausea, vomiting, ears/nose/ throat pain, visual changes, headaches, chest pain, SOB, abdominal pain, dysuria , hematuria, diarrhea, and hematochezia. Past History - Past Medical History Allergies/Adverse Reactions: Allergies Allergy/AdvReac Type Severity Reaction Status Date / Time Fish Containing Products Allergy Mild Swelling Verified 07/19/18 16:19 No Known Drug Allergies Allergy Verified 07/19/18 16:19 Home Medications: Ambulatory Orders NK [No Known Home Medication] 07/19/18 Anemia: No Asthma: No Cancer: Yes (mesothelioma lung cancer) Cardiac Disorders: No CVA: No COPD: No CHF: No DVT: No Dementia: No Diabetes: No GI Disorders: No Disorders: No HTN: Yes Hypercholesterolemia: No Kidney Stones: No Liver Disease: No Psychiatric Problems: Yes (alcoholism) Seizures: No Thyroid Disease: No - Surgical History Abdominal Surgery: No Appendectomy: No Cardiac Surgery: No Cholecystectomy: No Lung Surgery: No Neurologic Surgery: No Orthopedic Surgery: No - Family Disease History Family Disease History: CA: Mother - Reproductive History Testicular Surgery: No - Immunization History TDAP Vaccination: Yes Immunization Up to Date: Yes - Suicide/Smoking/Psychosocial Hx Smoking Status: No Smoking History: Never smoked Have you smoked in the past 12 months: No Number of Cigarettes Smoked Daily: 5 If you are a former smoker, when did you quit?: 0 Cigars Per Day: 0 Information on smoking cessation initiated: No 'Breaking Loose' booklet given: 09/22/17 Hx Alcohol Use: Yes Drug/Substance Use Hx: No Substance Use Type: Alcohol Hx Substance Use Treatment: No Review of Systems - Review of Systems Able to Perform ROS?: Yes Is the patient limited Congolese proficient: No Constitutional: No: Chills, Diaphoresis, Fever, Weakness HEENTM: Yes: Eye Pain (left orbital inferior pain). No: Blurred Vision, Recent change in vision, Double Vision, Ear Pain, Nose Pain, Throat Pain, Mouth Pain Respiratory: No: Cough, Shortness of Breath, Hemoptysis Cardiac (ROS): No: Chest Pain, Lightheadedness, Palpitations, Syncope, Chest Tightness ABD/GI: No: Constipated, Diarrhea, Nausea, Poor Appetite, Poor Fluid Intake, Rectal Bleeding, Vomiting, Tarry Stools : No: Burning, Dysuria, Hematuria, Urgency Musculoskeletal: Yes: Back Pain, Joint Pain (left hip). No: Neck Pain Integumentary: Yes: Bruising (left eye). No: Erythema, Pruritus, Rash Neurological: No: Headache, Numbness, Tingling, Tremors, Ataxia, Dizziness Psychiatric: No: Change in Appetite Endocrine: No: Unexplained Weight Gain Hematologic/Lymphatic: No: Anemia *Physical Exam - Vital Signs Last Vital Signs Temp Pulse Resp BP Pulse Ox 97.6 F 85 18 106/42 L 95 07/18/18 16:12 07/18/18 16:12 07/18/18 16:12 07/18/18 16:12 07/18/18 16:12 - Physical Exam General Appearance: Yes: Nourished, Appropriately Dressed. No: Apparent Distress, Intoxicated HEENT: positive: EOMI, DOUGLAS, Normal ENT Inspection, Normal Voice, Symmetrical, TMs Normal, Pharynx Normal, Hearing Grossly Normal, Other (left superior and inferior orbital ecchymosis without tenderness to palpation without sensory deficits. EOM intact. no nystagmus. no septal hematoma visualized in the nares bilaterally. no contusions or abrasions noted elsewhere on the head. ). negative: Pale Conjunctivae, Scleral Icterus (R), Scleral Icterus (L), Muffled/ Hoarse voice, Pharyngeal Erythema, Tonsillar Exudate, Tonsillar Erythema, Nasal Congestion, Rhinorrhea, Sinus Tenderness, Hearing Decreased, Excessive drooling Neck: positive: Trachea midline, Supple. negative: Tender, Lymphadenopathy (R) , Lymphadenopathy (L), Tender lateral, Tender midline Respiratory/Chest: positive: Lungs Clear, Normal Breath Sounds. negative: Chest Tender, Respiratory Distress, Accessory Muscle Use, Crackles, Rales, Rhonchi, Stridor, Wheezing, Hyperresonant Cardiovascular: positive: Regular Rhythm, Regular Rate, S1, S2. negative: Systolic Murmur Gastrointestinal/Abdominal: positive: Normal Bowel Sounds, Flat, Soft. negative : Tender, Rebound, Tenderness, Hernia Lymphatic: negative: Adenopathy Musculoskeletal: positive: Normal Inspection. negative: CVA Tenderness, Vertebral Tenderness Extremity: positive: Normal Capillary Refill, Normal Inspection, Normal Range of Motion. negative: Tender, Swelling, Calf Tenderness Integumentary: positive: Normal Color, Dry, Warm. negative: Rash, Swelling Neurologic: positive: quality control analyst II-XII NML intact, Fully Oriented, Alert, Normal Mood/ Affect, Normal Response, Motor Strength 5/5. negative: EOM Palsy, Facial Droop , Sensory Deficit Moderate Sedation - Procedure Monitoring Vital Signs: Procedure Monitoring Vital Signs Temperature 97.6 F 07/18/18 16:12 Pulse Rate 85 07/18/18 16:12 Respiratory Rate 18 07/18/18 16:12 Blood Pressure 106/42 L 07/18/18 16:12 O2 Sat by Pulse Oximetry (%) 95 07/18/18 16:12 ED Treatment Course - LABORATORY CBC & Chemistry Diagram: 07/18/18 17:10 07/18/18 17:10 Medical Decision Making - Medical Decision Making 63 yo M with a hx of HTN, mesothelioma, ETOH abuse, multiple fractures of the ribs and extremities in the past, and fractures in the vertebral column presents to the emergency department with difficulty walking for the past 1 day s/p mechanical fall landing on his left sided face. Initial vitals: Initial Vital Signs Temp Pulse Resp BP Pulse Ox 97.6 F 85 18 106/42 L 95 07/18/18 16:12 07/18/18 16:12 07/18/18 16:12 07/18/18 16:12 07/18/18 16:12 Work up: ddx: orbital fracture vs skull fracture vs intracranial acute process vs hip fracture vs dislocation. orders: cbc, cmp, alcohol, hip/pelvis xray, head ct, facial bone ct. Laboratory Tests 07/18/18 07/18/18 17:10 17:10 WBC 8.6 RBC 3.81 L Hgb 9.4 L Hct 29.4 L MCV 77.2 L MCH 24.6 L MCHC 31.8 L RDW 20.5 H Plt Count 573 H D MPV 7.4 L Absolute Neuts (auto) 5.4 Neutrophils % 62.6 Lymphocytes % 26.8 D Monocytes % 4.5 Eosinophils % 3.4 D Basophils % 2.7 H D Nucleated RBC % 0 Sodium 141 Potassium 2.9 L* Chloride 104 Carbon Dioxide 26 Anion Gap 11 BUN 7 Creatinine 0.6 Creat Clearance w eGFR > 60 Random Glucose 96 Calcium 8.1 L Magnesium 1.6 L Total Bilirubin 0.2 AST 28 ALT 22 Alkaline Phosphatase 150 H Total Protein 6.2 L Albumin 2.8 L Alcohol, Quantitative 298.1 H hbg is low which is within his usual range. platelet count elevated and potassium is low at 2.9 with a low magnesium at 1.6. alcohol at 298. patient was offered potassium as treatment. 07/18/18 18:[address] BECAUSE INJURY IS "NOT A BIG DEAL ITS BEEN CHECK OUT". REFUSED POTASSIUM BECAUSE IT "HURTS MY STOMACH". REFUSED IV POTASSIUM BECAUSE "IT SANTILLAN MY VEINS". Patient amendable to taking bananas. hip/pelvis xray shows no acute fractures or dislocations. Patient was amendable to taking magnesium oxide for magnesium repletion. refused pain medications. patient was clinically sober to be discharged. he was able to ambulate on his own volition, make logical statements, and understands his disease process and its management. patient was discharged with strict return precautions and advisory to follow up with his primary medical doctor within 3 days after discharge. Dispo: Discharge *DC/Admit/Observation/Transfer Diagnosis at time of Disposition: Alcohol intoxication - Discharge Dispostion Disposition: HOME Decision to Admit order: No - Referrals Referrals: [facility] [place] [facility] [place] [Provider Group] - Patient Instructions Printed Discharge Instructions: DI for Alcohol Abuse Additional Instructions: You were seen in the emergency department for alcohol intoxication and left hip pain. your xray of the hip was within normal limits. you refused CT of the head , face, and potassium medications in the department and are requesting to go home. please follow up with the primary medical doctor referred to you in the packet within 3 days after discharge for follow up care and management. please return to the emergency department if you have worsening symptoms or new concerning symptoms. please take the antibiotics prescribed to you for your foot. thank you. - Post Discharge Activity Forms/Work/School Notes: Back to Work
[2018-07-18 17:20] LABS: BASO % 2.7 % (0-2.0); EOS % 3.4 % (0-4.5); HEMATOCRIT 29.4 % (35.4-49); HEMOGLOBIN 9.4 GM/dL (11.7-16.9); LYMPH % 26.8 % (8-40); MCH 24.6 pg (25.7-33.7); MCHC 31.8 g/dl (32.0-35.9); MEAN CELL VOLUME 77.2 fl (80-96); MEAN PLT VOLUME 7.4 fl (7.5-11.1); MONO % 4.5 % (3.8-10.2); NEUT % 62.6 % (42.8-82.8); PLATELET COUNT 573 K/MM3 (134-434); RBC 3.81 M/mm3 (4.00-5.60); RDW 20.5 % (11.9-15.9); WHITE BLOOD COUNT 8.6 K/mm3 (4.0-10.0)
--- NOTE | 2018-07-18 17:23 | PDOC ---
Attending Attestation - HPI HPI: 07/18/18 17:27 The patient is a 63 year old male with a significant past medical history of ETOH abuse, mesothelioma, multiple fractures of the ribs and extremities in the past, and fractures in the vertebral column who presents to the ED s/p alcohol intoxication. Patient is well known to the ED. Patient is intoxicated upon arrival to the ED. - Physicial Exam PE: 07/18/18 17:27 GENERAL: + Disheveled and smells like alcohol HEENT: + Bruising around left eye and cheek Normocephalic. PERRLA, EOMI. No conjunctival pallor. Sclera are non-icteric. Moist mucous membranes. NECK: Supple. Full ROM. No JVD. Carotid pulses 2+ and symmetric, without bruits. No thyromegaly. No lymphadenopathy. CARDIOVASCULAR: Regular rate and rhythm. No murmurs, rubs, or gallops. Distal pulses are 2+ and symmetric. PULMONARY: No evidence of respiratory distress. Lungs clear to auscultation bilaterally. No wheezing, rales or rhonchi. ABDOMINAL: Soft. Non-tender. Non-distended. No rebound or guarding. No organomegaly. Normoactive bowel sounds. MUSCULOSKELETAL Normal range of motion at all joints. No bony deformities or tenderness. No CVA tenderness. EXTREMITIES: No cyanosis. No clubbing. No edema. No calf tenderness. SKIN: Warm and dry. Normal capillary refill. No rashes. No jaundice. NEUROLOGICAL: + Intoxicated PSYCHIATRIC: Cooperative. Good eye contact. Appropriate mood and affect. <Yuridia Bowers - Last Filed: 07/18/18 17:26> - Resident Resident Name: Kobi Carrasco - ED Attending Attestation I have performed the following: I have examined & evaluated the patient, The case was reviewed & discussed with the resident, I agree w/resident's findings & plan, Exceptions are as noted - HPI HPI: 07/18/18 17:24 63 yo male intoxicated with left face bruising. He states he fell recently - Medical Decision Making 07/19/18 02:22 labs reviewed imp etoh, plan d/c <Sue Casanova - Last Filed: 07/19/18 02:23> Attestations - Attestations 07/18/18 17:27 Documentation prepared by Yuridia Bowers, acting as medical massage therapist for Sue Casanova MD <Yuridia Bowers - Last Filed: 07/18/18 17:26>
[2018-07-18 17:57] LABS: ALBUMIN 2.8 g/dl (3.4-5.0); ALK PHOS 150 U/L (45-117); ANION GAP 11 MMOL/L (8-16); BILIRUBIN,TOTAL 0.2 mg/dL (0.2-1); BLOOD UREA NITROGEN 7 mg/dL (7-18); CALCIUM 8.1 mg/dL (8.5-10.1); CHLORIDE 104 mmol/L (98-107); CO2 26 mmol/L (21-32); CREATININE 0.6 mg/dL (0.55-1.3); GLUCOSE,RANDOM 96 mg/dL (74-106); SGOT/AST 28 U/L (15-37); SGPT/ALT 22 U/L (13-61); SODIUM 141 mmol/L (136-145); TOT PROT 6.2 g/dl (6.4-8.2)
[2018-07-18 18:00] LABS: POTASSIUM 2.9 mmol/L (3.5-5.1)
[2018-07-18] MEDS ORDERED: POTASSIUM CHLORIDE TABS 20 MEQ TABLET.ER (FP) PO ONE ×2 (18:03→19:30)
[2018-07-18 18:16] LABS: MAGNESIUM 1.6 mg/dL (1.8-2.4)
[2018-07-18] MEDS ORDERED: MAGNESIUM OXIDE 400 MG TABLET (FP) PO ONE (20:42)
[2018-07-18] MEDS ORDERED: MAGNESIUM OXIDE 400 MG TABLET (FP) ONE (22:13)
[2018-07-18] MEDS: KCL 10 MEQ IVPB 10 MEQ/100 ML INFUS.BAG IVPB SCH ×2 (22:52→22:53)
== END 2018-07-19 07:09 | disposition home or self-care (01) ==
LOC: JER 15:16
DX: F10.220 Alcohol dependence with intoxication, uncomplicated (principal); S09.93XA Unspecified injury of face, initial encounter; M25.552 Pain in left hip; E87.6 Hypokalemia; E83.42 Hypomagnesemia; I10 Essential (primary) hypertension; C45.9 Mesothelioma, unspecified; R26.89 Other abnormalities of gait and mobility; W18.39XA Other fall on same level, initial encounter; Y93.89 Activity, other specified; Y92.480 Sidewalk as the place of occurrence of the external cause; Y99.8 Other external cause status; Y90.8 Blood alcohol level of 240 mg/100 ml or more
CPT/HCPCS: 36415; 73523-TC-FY; 80053; 80307; 83735; 85025; 99282-25

== ENCOUNTER 2018-07-19 16:13 | Emergency (ER) | payer OTHER | END 2018-07-20 07:20 | disposition home or self-care (01) | LOC: JER 07-20 07:20 | DX: F10.220 Alcohol dependence with intoxication, uncomplicated (principal); I10 Essential (primary) hypertension; C45.9 Mesothelioma, unspecified; Z59.0 Homelessness ==

== ENCOUNTER 2018-07-22 18:33 | Inpatient (IN) | payer OTHER ==
--- NOTE | 2018-07-23 05:09 | PDOC ---
History of Present Illness - General Chief Complaint: Alcohol intoxication Stated Complaint: INTOXICATION - History of Present Illness Initial Comments: The pt is a 63M w/ a history of EtOH abuse who presents for evaluation of EtOH intoxication. Patient unsure if he fell tonight but thinks he may have because the back of his head hurts. The patient denies recent fevers/chills, GARCIA, blurry vision, chest pain, SOB, abdominal pain, N/V/C/D, or changes in sensation. The patient does not wish to seek detox at this time. 07/23/18 05:26 Past History - Past Medical History Allergies/Adverse Reactions: Allergies Allergy/AdvReac Type Severity Reaction Status Date / Time Fish Containing Products Allergy Mild Swelling Verified 07/22/18 18:37 No Known Drug Allergies Allergy Verified 07/22/18 18:37 Home Medications: Ambulatory Orders NK [No Known Home Medication] 07/19/18 Anemia: No Asthma: No Cancer: Yes (mesothelioma lung cancer) Cardiac Disorders: No CVA: No COPD: No CHF: No DVT: No Dementia: No Diabetes: No GI Disorders: No Disorders: No HTN: Yes Hypercholesterolemia: No Kidney Stones: No Liver Disease: No Psychiatric Problems: Yes (etoh) Seizures: No Thyroid Disease: No - Surgical History Abdominal Surgery: No Appendectomy: No Cardiac Surgery: No Cholecystectomy: No Lung Surgery: No Neurologic Surgery: No Orthopedic Surgery: No - Family Disease History Family Disease History: CA: Mother - Reproductive History Testicular Surgery: No - Immunization History TDAP Vaccination: Yes Immunization Up to Date: Yes - Suicide/Smoking/Psychosocial Hx Smoking Status: No Smoking History: Never smoked Have you smoked in the past 12 months: No Number of Cigarettes Smoked Daily: 5 If you are a former smoker, when did you quit?: 0 Cigars Per Day: 0 Information on smoking cessation initiated: No 'Breaking Loose' booklet given: 09/22/17 Hx Alcohol Use: No Drug/Substance Use Hx: No Substance Use Type: Alcohol Hx Substance Use Treatment: No Review of Systems - Review of Systems Able to Perform ROS?: Yes Comments:: GENERAL/CONSTITUTIONAL: No fever or chills. No weakness HEAD, EYES, EARS, NOSE AND THROAT: No change in vision. No ear pain or discharge. No sore throat CARDIOVASCULAR: No chest pain or shortness of breath RESPIRATORY: Denies cough, hemoptysis GASTROINTESTINAL: No nausea, vomiting, diarrhea or constipation GENITOURINARY: Denies dysuria, frequency, or change in urination MUSCULOSKELETAL: +chronic back pain SKIN: No rash NEUROLOGIC: No headache, vertigo, loss of consciousness, or change in strength/ sensation ENDOCRINE: No increased thirst. No abnormal weight change HEMATOLOGIC/LYMPHATIC: No anemia, easy bleeding, or history of blood clots ALLERGIC/IMMUNOLOGIC: No hives or skin allergy 07/23/18 05:22 Is the patient limited Indonesian proficient: No *Physical Exam - Vital Signs Last Vital Signs Temp Pulse Resp BP Pulse Ox 98.5 F 95 H 16 185/75 H 95 07/22/18 18:37 07/22/18 18:37 07/22/18 18:37 07/22/18 18:37 07/22/18 18:37 - Physical Exam Comments: GENERAL: Awake, alert, in no acute distress HEAD: No signs of trauma, normocephalic, atraumatic EYES: PERRL, EOMI, sclera anicteric, conjunctiva clear ENT: Hearing grossly normal, nares patent, oropharynx clear without exudates. Moist mucosa LUNGS: No distress, speaks full sentences, clear to auscultation bilaterally HEART:Regular rate and rhythm, normal S1 and S2, no murmurs appreciated, peripheral pulses normal and equal bilaterally NEUROLOGICAL: Cranial nerves II through XII grossly intact. Normal speech, no focal sensorimotor deficits SKIN: Warm, Dry, healing abrasions lateral to L eye 07/23/18 05:55 Moderate Sedation - Procedure Monitoring Vital Signs: Procedure Monitoring Vital Signs Temperature 98.5 F 07/22/18 18:37 Pulse Rate 95 H 07/22/18 18:37 Respiratory Rate 16 07/22/18 18:37 Blood Pressure 185/75 H 07/22/18 18:37 O2 Sat by Pulse Oximetry (%) 95 07/22/18 18:37 ED Treatment Course - LABORATORY CBC & Chemistry Diagram: 07/24/18 06:00 07/24/18 06:00 Medical Decision Making - Medical Decision Making The pt is a 63M w/ a history of EtOH abuse and chronic back pain who presents intoxicated for evaluation s/p possible fall ED Course CT Head w/o 07/23/18 05:[address] head. Ambulating in department Patient signed out to Dr. Jackson, presentation, workup, and findings to this point discussed and all questions answered *DC/Admit/Observation/Transfer Diagnosis at time of Disposition: Alcohol intoxication Fall Qualifiers: Encounter type: initial encounter Qualified Code(s): W19.XXXA - Unspecified fall, initial encounter - Discharge Dispostion Condition at time of disposition: Stable Decision to Admit order: No - Referrals - Patient Instructions - Post Discharge Activity
--- NOTE | 2018-07-23 05:16 | PDOC ---
Attending Attestation - Resident Resident Name: Sigifredo Davis - ED Attending Attestation I have performed the following: I have examined & evaluated the patient, The case was reviewed & discussed with the resident, I agree w/resident's findings & plan - HPI HPI: 07/23/18 05:56 63-year-old male with history of alcohol abuse. Patient states he may have fell and hit the back of his head. He is well-known to this department. - Physicial Exam PE: 07/23/18 05:57 Agree with resident's exam - Medical Decision Making 07/23/18 05:58 63-year-old male with history of alcohol abuse and possible fall CT scan of the head pending with plan for discharge home if within normal limits
--- NOTE | 2018-07-23 07:20 | PDOC ---
*Physical Exam - Vital Signs Last Vital Signs Temp Pulse Resp BP Pulse Ox 98.5 F 95 H 16 185/75 H 95 07/22/18 18:37 07/22/18 18:37 07/22/18 18:37 07/22/18 18:37 07/22/18 18:37 - Physical Exam Comments: 07/23/18 07:19 Received sign out from Dr. Davis. ED Treatment Course - LABORATORY CBC & Chemistry Diagram: 07/24/18 06:00 07/24/18 06:00 Medical Decision Making - Medical Decision Making 07/23/18 07:[address] head. 07/23/18 08:[address] was negative for acute pathologies. Patient's left foot infection secondary to an ulcer has worsened since previous examination. per the patient, he doesnt believe he will be able to take antibiotics on an outpatient basis due to his living conditions. the patient is an unsafe discharge and will be admitted for an infection of the left foot. Dispo Admit *DC/Admit/Observation/Transfer Diagnosis at time of Disposition: Alcohol intoxication Fall Qualifiers: Encounter type: initial encounter Qualified Code(s): W19.XXXA - Unspecified fall, initial encounter - Discharge Dispostion Condition at time of disposition: Stable - Referrals - Patient Instructions - Post Discharge Activity
[2018-07-23 09:34] LABS: BASO % 2.2 % (0-2.0); EOS % 2.8 % (0-4.5); HEMATOCRIT 30.4 % (35.4-49); HEMOGLOBIN 9.7 GM/dL (11.7-16.9); LYMPH % 23.7 % (8-40); MCH 24.4 pg (25.7-33.7); MCHC 31.8 g/dl (32.0-35.9); MEAN CELL VOLUME 76.7 fl (80-96); MEAN PLT VOLUME 7.5 fl (7.5-11.1); MONO % 6.2 % (3.8-10.2); NEUT % 65.1 % (42.8-82.8); PLATELET COUNT 438 K/MM3 (134-434); RBC 3.96 M/mm3 (4.00-5.60); RDW 20.4 % (11.9-15.9); WHITE BLOOD COUNT 7.3 K/mm3 (4.0-10.0)
[2018-07-23] MEDS ORDERED: CLINDAMYCIN 600MG PREMIX IVPB 600 MG/50 ML BAG IVPB ONE ×2 (09:44→10:05)
[2018-07-23 10:09] LABS: ALBUMIN 3.1 g/dl (3.4-5.0); ALK PHOS 152 U/L (45-117); ANION GAP 7 MMOL/L (8-16); BILIRUBIN,TOTAL 0.4 mg/dL (0.2-1); BLOOD UREA NITROGEN 7 mg/dL (7-18); CALCIUM 8.3 mg/dL (8.5-10.1); CHLORIDE 106 mmol/L (98-107); CO2 31 mmol/L (21-32); CREATININE 0.6 mg/dL (0.55-1.3); GLUCOSE,RANDOM 92 mg/dL (74-106); POTASSIUM 3.6 mmol/L (3.5-5.1); SGOT/AST 27 U/L (15-37); SGPT/ALT 19 U/L (13-61); SODIUM 143 mmol/L (136-145); TOT PROT 6.4 g/dl (6.4-8.2)
--- NOTE | 2018-07-23 10:21 | HP ---
CHIEF COMPLAINT: " I had a mechanical fall" PCP: Dr. Garima Bridges HISTORY OF PRESENT ILLNESS: Patient is a 63 year old male, well known to [facility], multiple ED visits (8th visit in 2019), presented to the ED after he had a mechanical fall. As per the patient , he had a mechanical fall yesterday after he took a pint of vodka, hence came in to the ED for further evaluation. Patient doesn't remember the fall and is unable to describe it. He was recently seen in the ED 07/19/18 for alcohol intoxication, had a bruise in the left eye from an accident from cement falling on his head. Head CT was negative and was sent home. Patient was also recently admitted at [facility] from 07/13/18-07/15/18 for Lower ext cellulitis and wound infection, was started on Cefazolin. Wound culture grew MSSA and enterococcus. Patient eloped prior to discharge. Patient denies headache, blurring of vision, tingling, numbness, abdominal pain , nauesa, vomiting. Bowel habit normal-Last BM yesterday, no blood. Bladder habit normal. Patient counselled for alcohol detox and he agrees but doesn't wish to go to [facility], wants to go to a place where longer detox is offered. States he is homeless and now wants to get help, also considering to go to a alf. ER course was notable for: (1) Afebrile, no leukocytosis (2) Head CT negative (3) IV Clindamycin Recent Travel: None PAST MEDICAL HISTORY: Alcohol abuse, Mesothelioma (Dx 4 yrs ago), HTN (not on meds), chronic back pain, recent right humerus fracture, B/L lower ext wound infection (MSSA, enterococcus) PAST SURGICAL HISTORY: None reported Social History: Homeless. Smoking: Denies Alcohol: 1 pint of alcohol daily, since age 16. Last drink yesterday-1 pint of vodka/day Drugs: Denies Family History: Non contributory. 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) Allergies Fish Containing Products Allergy (Mild, Verified 07/22/18 18:37) Swelling No Known Drug Allergies Allergy (Verified 07/22/18 18:37) HOME MEDICATIONS: Home Medications Medication Instructions Recorded NK [No Known Home Medication] 07/19/18 REVIEW OF SYSTEMS CONSTITUTIONAL: Absent: fever, chills, diaphoresis, generalized weakness, malaise, loss of appetite, weight change HEENT: Absent: rhinorrhea, nasal congestion, throat pain, throat swelling, difficulty swallowing, mouth swelling, ear pain, eye pain, visual changes CARDIOVASCULAR: Absent: chest pain, syncope, palpitations, irregular heart rate, lightheadedness , peripheral edema RESPIRATORY: Absent: cough, shortness of breath, dyspnea with exertion, orthopnea, wheezing, stridor, hemoptysis GASTROINTESTINAL: Absent: abdominal pain, abdominal distension, nausea, vomiting, diarrhea, constipation, melena, hematochezia GENITOURINARY: Absent: dysuria, frequency, urgency, hesitancy, hematuria, flank pain, genital pain MUSCULOSKELETAL: Absent: myalgia, arthralgia, joint swelling, back pain, neck pain SKIN: Absent: rash, itching, pallor HEMATOLOGIC/IMMUNOLOGIC: Absent: easy bleeding, easy bruising, lymphadenopathy, frequent infections ENDOCRINE: Absent: unexplained weight gain, unexplained weight loss, heat intolerance, cold intolerance NEUROLOGIC: Present: Tremors Absent: headache, focal weakness or paresthesias, dizziness, unsteady gait, seizure, mental status changes, bladder or bowel incontinence PSYCHIATRIC: Absent: anxiety, depression, suicidal or homicidal ideation, hallucinations. PHYSICAL EXAMINATION Vital Signs - 24 hr 07/22/18 07/23/18 07/23/18 18:37 08:57 08:58 Temperature 98.5 F 97.8 F Pulse Rate 95 H Pulse Rate [ 95 H Left Radial] Respiratory 16 18 Rate Blood Pressure 185/75 H Blood Pressure 168/92 [Right Arm] O2 Sat by Pulse 95 96 96 Oximetry (%) GENERAL: Middle aged male, lying in bed, is awake, alert, and fully oriented, in no acute distress. HEAD: Normal with no signs of trauma. EYES: Ecchymosis surrounding the left eye+, L Periorbital edema, EOM intact, no pallor or icterus. NECK: Supple, No JVD. LUNGS: B/L breath sounds equal, no added sounds. Breath sounds equal, clear to auscultation bilaterally. HEART: Regular rate and rhythm, S1, S2 without murmur. ABDOMEN: Soft, non tender, no organomegaly. EXTREMITIES: 2+ pulses, warm, well-perfused, no edema. B/L LE: about 1.5 x 2cm round + ulcer on dorsum of left foot, 1 cm x 1cm round wound on the right dorsum, draining pus +, tenderness but no erythema or warmth. +laceration on dorsum of right foot,. NEUROLOGICAL: No facial droop. Power 5/5 in all extremities, sensation intact, Cranial nerves II through XII grossly intact. Normal speech, gait not observed, Tremors on the Extremities +. PSYCH: Normal mood, normal affect. SKIN: Warm, dry, normal turgor, no rashes or lesions noted Laboratory Results - last 24 hr 07/23/18 07/23/18 09:20 09:20 WBC 7.3 RBC 3.96 L Hgb 9.7 L Hct 30.4 L MCV 76.7 L MCH 24.4 L MCHC 31.8 L RDW 20.4 H Plt Count 438 H D MPV 7.5 Absolute Neuts (auto) 4.7 Neutrophils % 65.1 Lymphocytes % 23.7 Monocytes % 6.2 Eosinophils % 2.8 Basophils % 2.2 H Nucleated RBC % 0 Sodium 143 Potassium 3.6 Chloride 106 Carbon Dioxide 31 Anion Gap 7 L BUN 7 Creatinine 0.6 Creat Clearance w eGFR > 60 Random Glucose 92 Calcium 8.3 L Total Bilirubin 0.4 AST 27 ALT 19 Alkaline Phosphatase 152 H Total Protein 6.4 Albumin 3.1 L IMAGING: Head CT 07/22/18: No evidence of acute intracranial hemorrhage, edema, midline shift, mass effect, or skull fracture. No CT evidence of acute territorial infarction. No evidence of skull fracture. Bilateral nasal bone fractures, present on prior study July 19, 2018 Foot xray 07/22/18: No soft tissue gas is identified. Soft tissue swelling noted over the dorsum of the foot, more pronounced as compared to prior imaging. No bony erosions are identified. ASSESSMENT/PLAN: Patient is a 63 year old male, well known to [facility], multiple visits (8th visit in 2019), with PMHx of Alcohol abuse, Mesothelioma (Dx 4 yrs ago), HTN (not on meds), chronic back pain, recent right humerus fracture, recently treated for B/ L lower ext wound infection on (MSSA, Enterococcus) 07/13/18 presented to the ED after he had a mechanical fall. # Mechanical fall likely after alcohol intoxication Pt doesn't remember the details Head CT showed no acute pathology. B/L nasal bone fractures present on CT No focal neurological deficits PT ordered # Infection of Left foot ulcer > right No fever, no leukocytosis. No signs of Sepsis. Pus coming out from both ulcers. Wound cultures sent. IV Clindamycin was given in the ED. Was recently treated with Cefazolin 07/13/18 x 3 days. Wound cx MSSA, enteroccus at that time Wound culture sent today prior to abx. Will continue Cefazolin 1gm Q8H Blood cultures ordered # Alcohol intoxication CIWA score 2. Patient now has withdrawal symptoms. Libirum protocol started Counselled for alcohol inpatient detox and patient agrees. Call Placed to Dr. Samuel, awaiting call back. IV Banana bag -1 PO Thiamine 100mg Daily Folic acid 1 mg daily Mg, phos added in AM labs, will replete if needed # Hypertension Was started on Amlodipine 5mg last admission, patient is non compliant. Will restart Amlodipine # Iron def anemia Last admission, Iron profile was sent. H/H stable. Venofer 200mg IV x 5days Needs GI work up as outpatient # Right humeral fracture manage conservatively # Mesothelioma F/up as outpatient # FEN IV Banana bag 1 Electrolytes Pending Regular diet # Prophylaxis For DVT: Lovenox 40mg sq daily For GI: Protonix 40mg # Code Status: Full Code # Dispo: Once medically stable, will transfer to inpatient detox. 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 Illness, Investigation and PLan of care explained to the patient. He verbalized understanding. Case discussed with Dr. Bowen. Visit type - Emergency Visit Emergency Visit: Yes Care time: The patient presented to the Emergency Department on the above date and was hospitalized for further evaluation of their emergent condition. - New Patient This patient is new to me today: Yes Date on this admission: 07/23/18 - Critical Care Critical Care patient: No
[2018-07-23] MEDS ORDERED: FOLIC ACID INJECTION - 1 MG, THIAMINE HCL 100 MG, MULTIVIT INJECTION ADULT 10 ML in SOD... IVPB ONE (10:28)
[2018-07-23] MEDS ORDERED: FOLIC ACID 1 MG TABLET (FP) PO ONE (10:29)
[2018-07-23] MEDS ORDERED: amLODIPine BESYLATE 5 MG TABLET (FP) PO ONE ×2 (10:29→10:44)
[2018-07-23] MEDS ORDERED: PANTOPRAZOLE SODIUM 40 MG VIAL IVPUSH ONE (12:15)
--- NOTE | 2018-07-23 12:15 | PN ---
Teaching Attending Note Name of Resident: Valeria Williamson ATTENDING PHYSICIAN STATEMENT I saw and evaluated the patient. I reviewed the resident's note and discussed the case with the resident. I agree with the resident's findings and plan as documented. SUBJECTIVE:63yo M [facility] continuous ETOH dependence, HTN, mesothelioma was admitted to [facility] on 07/12/18 for cellulitis +MSSA and on cefazolin. pt signed out eloped on 07/15/18 and did not take any abx once he left. [place]. does not remember falling. also noted that his foot still appears infected and he reports active drainage. This will require IV abx treatment as pt is not likely to be compliant with oral abx and discharged. denies CP, SOB, fever, chills, N/V/C/D, blurred vision, LOC OBJECTIVE: Last Vital Signs Temp Pulse Resp BP Pulse Ox 97.8 F 95 H 18 168/92 96 07/23/18 08:57 07/23/18 08:57 07/23/18 08:57 07/23/18 08:57 07/23/18 08:58 General NAD HEENT L eye periorbital ecchymosis and swelling, EOMI, PERRL CV S1 S2 RRR no murmur/rub/gallop Lungs CTA B/L anteriorly Extremities refused examination of his feet ASSESSMENT AND PLAN: 63yo M [facility] continuous ETOH dependence, HTN, mesothelioma was admitted to [facility] on 07/12/18 for cellulitis +MSSA and on cefazolin. pt eloped on 07/15/18 and did not take any abx once he left and presenting after mechanical fall and noted to have cellulities of the L foot 1. L foot cellulitis- did not evaluate but as per resident and ER attending appear infected. will re-start cefazolin. obtain Bcx. will need to be hospitalized to ensure patient completes abx therapy as pt is known to be non- compliant with therapy. 2. Mechanical fall- due to acute intoxication. Head CT is negative. PT eval. may benefit from SNF placement 3. ETOH withdrawal- CIWA 8. start librium protocol. banana bag. counselled on risks of continued drinking. verbalized understanding and interested in detox and rehab at this time. but does not want [facility] and wants to be in the [facility]. cont IVF, thiamine, folate 4. microcytic anemia-liekly due to chronic ETOH. refused GI workup last hospitalization. refuses AMARILYS or FOBT. Hgb at baseline. iron studies on last admission is noted. is not compliant with medications as he is homeless and refuses to take them. will give venofer x5 doses. 4. HTN 5. DVT ppx-hep
[2018-07-23] MEDS ORDERED: PANTOPRAZOLE SODIUM 40 MG/100 ML BAG IVPB ONE (13:17)
[2018-07-23] MEDS ORDERED: chlordiazePOXIDE HCL 25 MG CAPSULE ONE ×2 (13:17→19:12)
[2018-07-23] MEDS: chlordiazePOXIDE HCL 25 MG CAPSULE PO SCH ×2 (13:26→19:16)
[2018-07-23 13:58] LABS: MAGNESIUM 1.4 mg/dL (1.8-2.4); PHOSPHOROUS 3.6 mg/dL (2.5-4.9)
[2018-07-23] MEDS: IRON SUCROSE INJECTION 200 MG in SODIUM CHLORIDE 90 ML IVPB SCH (14:30)
[2018-07-23] MEDS ORDERED: CEFAZOLIN 1 GM/D5W 1 GM/50 ML BAG ONE (19:12)
[2018-07-23] MEDS: CEFAZOLIN 1 GM/D5W 1 GM/50 ML BAG IVPB SCH (19:17)
[2018-07-24] MEDS: chlordiazePOXIDE HCL 25 MG CAPSULE PO SCH ×5 (01:00→23:22)
[2018-07-24] MEDS ORDERED: chlordiazePOXIDE HCL 25 MG CAPSULE ONE ×3 (01:04→06:50)
[2018-07-24] MEDS ORDERED: CEFAZOLIN 1 GM/D5W 1 GM/50 ML BAG ONE (02:23)
[2018-07-24] MEDS: CEFAZOLIN 1 GM/D5W 1 GM/50 ML BAG IVPB SCH ×3 (02:42→17:06)
[2018-07-24 06:53] LABS: HEMATOCRIT 30.3 % (35.4-49); HEMOGLOBIN 9.7 GM/dL (11.7-16.9); MCHC 32.1 g/dl (32.0-35.9); MEAN CELL VOLUME 74.9 fl (80-96); PLATELET COUNT 369 K/MM3 (134-434); RBC 4.05 M/mm3 (4.00-5.60); RDW 19.4 % (11.9-15.9); WHITE BLOOD COUNT 6.9 K/mm3 (4.0-10.0)
[2018-07-24 07:22] LABS: ANION GAP 7 MMOL/L (8-16); BLOOD UREA NITROGEN 6 mg/dL (7-18); CALCIUM 8.1 mg/dL (8.5-10.1); CHLORIDE 101 mmol/L (98-107); CO2 31 mmol/L (21-32); CREATININE 0.5 mg/dL (0.55-1.3); GLUCOSE,RANDOM 88 mg/dL (74-106); POTASSIUM 3.3 mmol/L (3.5-5.1); SODIUM 140 mmol/L (136-145)
[2018-07-24] MEDS ORDERED: amLODIPine BESYLATE 5 MG TABLET (FP) PO ONE (08:14)
[2018-07-24] MEDS: IRON SUCROSE INJECTION 200 MG in SODIUM CHLORIDE 90 ML IVPB SCH (08:47)
[2018-07-24] MEDS: ENOXAPARIN NA (PORCINE) 40 MG/0.4 ML DISP.SYRIN SQ SCH (10:28)
[2018-07-24] MEDS: SULFAMETHOXAZOLE/TRIMETHOPRIM 800MG/160MG D.S. TABLET PO SCH ×2 (10:28→10:38)
[2018-07-24] MEDS: THIAMINE HCL 100 MG TABLET (FP) PO SCH (10:28)
[2018-07-24 11:01] VITALS: BMI 33.7
[2018-07-24 11:46] LABS: URINE APPEARANCE CLEAR; URINE BILIRUBIN NEGATIVE (<2.0 mg/dL); URINE COLOR LTYELLOW; URINE GLUCOSE (UA) NEGATIVE (NEGATIVE); URINE KETONE NEGATIVE (NEGATIVE); URINE LEUK ESTERASE 2+ (NEGATIVE); URINE NITRITE NEGATIVE (NEGATIVE); URINE PROTEIN NEGATIVE (NEGATIVE); URINE UROBILINOGEN NEGATIVE mg/dL (0.2-1.0)
[2018-07-24 12:01] LABS: EPI CELLS RARE /HPF (FEW); URINE HYALINE CAST 1 /lpf; URINE MUCUS RARE
--- NOTE | 2018-07-24 13:45 | PN ---
Physical Exam: SUBJECTIVE: Patient seen and examined at bedside. Pt complaining of generalized pain in back, stomach feet. He refuses to be examined and just wants to sleep. OBJECTIVE: Vital Signs Temperature 98.1 F 07/24/18 10:48 Pulse Rate 82 07/24/18 10:48 Respiratory Rate 22 H 07/24/18 10:48 Blood Pressure 185/101 H 07/24/18 10:48 O2 Sat by Pulse Oximetry (%) 98 07/24/18 10:48 GENERAL: Middle aged male, lying in bed, is awake, alert, and fully oriented, in no acute distress. HEAD: Normal with no signs of trauma. EYES: Ecchymosis surrounding the left eye+, L periorbital edema, EOM intact, no pallor or icterus. NECK: Supple, No JVD. LUNGS: CTA B/L. No wheezes noted. HEART: RRR. Normal S1, S2. No murmurs noted. ABDOMEN: Soft, non tender, no organomegaly. EXTREMITIES: 2+ pulses, warm, well-perfused, no edema. B/L LE: about 2cm round + ulcer on dorsum of left foot, non-erythematous. 1 cm x 1cm round wound on the right dorsum tenderness but no erythema or warmth. NEUROLOGICAL: No facial droop. Power 5/5 in all extremities, sensation intact, Cranial nerves II through XII grossly intact. Normal speech. PSYCH: Normal mood, normal affect. SKIN: Warm, dry, normal turgor, no rashes or lesions noted CBCD WBC 6.9 K/mm3 (4.0-10.0) 07/24/18 06:00 RBC 4.05 M/mm3 (4.00-5.60) 07/24/18 06:00 Hgb 9.7 GM/dL (11.7-16.9) L 07/24/18 06:00 Hct 30.3 % (35.4-49) L 07/24/18 06:00 MCV 74.9 fl (80-96) L 07/24/18 06:00 MCHC 32.1 g/dl (32.0-35.9) 07/24/18 06:00 RDW 19.4 % (11.9-15.9) H 07/24/18 06:00 Plt Count 369 K/MM3 (134-434) 07/24/18 06:00 MPV 7.0 fl (7.5-11.1) L 07/24/18 06:00 CMP Sodium 140 mmol/L (136-145) 07/24/18 06:00 Potassium 3.3 mmol/L (3.5-5.1) L 07/24/18 06:00 Chloride 101 mmol/L (98-107) 07/24/18 06:00 Carbon Dioxide 31 mmol/L (21-32) 07/24/18 06:00 Anion Gap 7 MMOL/L (8-16) L 07/24/18 06:00 BUN 6 mg/dL (7-18) L 07/24/18 06:00 Creatinine 0.5 mg/dL (0.55-1.3) L 07/24/18 06:00 Creat Clearance w eGFR > 60 (>60) 07/24/18 06:00 Calcium 8.1 mg/dL (8.5-10.1) L 07/24/18 06:00 Total Bilirubin 0.4 mg/dL (0.2-1) 07/23/18 09:20 AST 27 U/L (15-37) 07/23/18 09:20 ALT 19 U/L (13-61) 07/23/18 09:20 Alkaline Phosphatase 152 U/L (45-117) H 07/23/18 09:20 Total Protein 6.4 g/dl (6.4-8.2) 07/23/18 09:20 Albumin 3.1 g/dl (3.4-5.0) L 07/23/18 09:20 Active Medications Amlodipine Besylate (Norvasc -) 10 mg PO DAILY CAREY Chlordiazepoxide HCl (Librium -) 25 mg PO [id number] CAREY Stop: 07/25/18 05:01 Last Admin: 07/24/18 10:28 Dose: 25 mg Chlordiazepoxide HCl (Librium -) 15 mg PO [id number] CAREY Stop: 07/26/18 05:01 Chlordiazepoxide HCl (Librium -) 25 mg PO Q4H PRN PRN Reason: WITHDRAWAL(CONT SUBST) Stop: 07/26/18 10:20 Chlordiazepoxide HCl (Librium -) 10 mg PO [id number] CAREY Stop: 07/27/18 05:01 Enoxaparin Sodium (Lovenox -) 40 mg SQ DAILY [facility] Last Admin: 07/24/18 10:28 Dose: 40 mg Iron Sucrose 200 mg/ Sodium (Chloride) 100 mls @ 100 mls/hr IVPB DAILY@0800 [facility] Stop: 07/28/18 12:14 Last Admin: 07/24/18 08:47 Dose: 100 mls/hr Cefazolin Sodium (Ancef 1 Gm Premixed Ivpb -) 1 gm in 50 mls @ 100 mls/hr IVPB Q8H-IV [facility] Last Admin: 07/24/18 10:28 Dose: 100 mls/hr Thiamine HCl (Vitamin B1 -) 100 mg PO DAILY [facility] Last Admin: 07/24/18 10:28 Dose: 100 mg Trimethoprim/Sulfamethoxazole (Bactrim Ds -) 1 each PO BID [facility] Last Admin: 07/24/18 10:38 Dose: Not Given IMAGING: * Head CT 07/22/18: No evidence of acute intracranial hemorrhage, edema, midline shift, mass effect, or skull fracture. No CT evidence of acute territorial infarction. No evidence of skull fracture. Bilateral nasal bone fractures, present on prior study July 19, 2018 * Foot xray 07/22/18: No soft tissue gas is identified. Soft tissue swelling noted over the dorsum of the foot, more pronounced as compared to prior imaging. No bony erosions are identified. ASSESSMENT/PLAN: 63M well known to [facility], multiple visits (8th visit in 2019), with PMHx of Alcohol abuse, Mesothelioma (Dx 4 yrs ago), HTN (not on meds), chronic back pain , recent right humerus fracture, recently treated for b/l lower ext wound infection on (MSSA, Enterococcus) 07/13/18 presented to the ED after he had a mechanical fall. #Mechanical fall; likely after alcohol intoxication -Head CT showed no acute pathology. B/L nasal bone fractures present on CT 10/01 -No focal neurological deficits -PT/fall precautions/neurochecks #Infection of Left foot ulcer > right; Pt is afebrile, normal WBC, -Bactrim BID (started 07/24/18), Cefazolin 1gm Q8H IVPB (started 07/23/18) given -Per ID recs, recommend to d/c antibiotics as ulcer w/o surrounding erythema, fluctuance or expressible pus. Bacitracin ordered #Alcohol intoxication -Cont Librium protocol -IV Banana bag, PO Thiamine 100mg QD, Folic acid 1 mg daily -Mg, Phos in AM, replete PRN -Detox Consult ordered #Hypertension; 159/105 today -Cont Amlodipine 10 mg PO QD #Iron deficiency anemia -Last admission, Iron profile was sent. H/H stable. -Venofer 200mg IV x 5days -Needs GI work up as outpatient #Right humeral fracture -manage conservatively. No surgical intervention to be done as evaluated previously by ortho. #Mesothelioma -F/u as outpatient #FEN -IV Banana bag -recheck lytes in AM -Regular diet #Prophylaxis -For DVT: Lovenox 40mg sq daily -For GI: Protonix 40mg #Dispo -Once medically stable, will transfer to inpatient detox. -full code Visit type - Emergency Visit Emergency Visit: Yes ED Registration Date: 07/23/18 Care time: The patient presented to the Emergency Department on the above date and was hospitalized for further evaluation of their emergent condition. - New Patient This patient is new to me today: Yes Date on this admission: 07/24/18 - Critical Care Critical Care patient: No
[2018-07-24] MEDS: chlordiazePOXIDE HCL 25 MG CAPSULE PO PRN (15:18)
--- NOTE | 2018-07-24 15:34 | PN ---
Progress Note (short form) - Note Progress Note: ID CONSULT CHART REVIEWED, PT SEEN THERE REMAINS A DIME-SIZED DRY ULCER ON DORSUM OF L FOOT W/O SURROUNDING ERYTHEMA. NO FLUCTUANCE OR EXPRESSIBLE PUS WOULD D/C ANTIBIOTICS TOPICAL BACITRACIN
--- NOTE | 2018-07-24 18:56 | PN ---
Teaching Attending Note Name of Resident: Kanwal Whitlock ATTENDING PHYSICIAN STATEMENT I saw and evaluated the patient. I reviewed the resident's note and discussed the case with the resident. I agree with the resident's findings and plan as documented. SUBJECTIVE: een in am No fever or chills . No abd pain. No GARCIA . has total body aches. OBJECTIVE: NAD. minimally cooperative HEENT: MMM, dry abrasions on L sided periorbital area. CV: RRR, No MRG Lungs: CTAB Ext : no edme aor erythema over upper or lower extremities. L dorsal foot with 2 cm ulcer with no discharge, with no surrounding erythema. R dorsal foot with a small abrasion with no erythema or discharge ASSESSMENT AND PLAN: 63 y/o man with h/o ETOH abuse, untreated HTN, and mesothelioma who presented to the ER for L foot ulcer. 1- L foot ulcer : previous wound cx reviewed. appreciate ID recs. No need for Abx . 2- HTN urgency: start norvasc and monitor 3- ETOH withdrawal : cont librium protocol 4- Microcytic Anemia: iron studies last admission might or might not indicate iron def. received iron yesterday. w/u as out pt Dispo : HLOC . will try to transfer to [facility] tomorrow
[2018-07-24] MEDS ORDERED: POTASSIUM CHLORIDE TABS 20 MEQ TABLET.ER (FP) PO ONE (18:57)
[2018-07-25] MEDS: chlordiazePOXIDE HCL 25 MG CAPSULE PO SCH (06:29)
[2018-07-25 06:57] LABS: HEMATOCRIT 28.8 % (35.4-49); HEMOGLOBIN 9.4 GM/dL (11.7-16.9); MCH 24.4 pg (25.7-33.7); MCHC 32.7 g/dl (32.0-35.9); MEAN CELL VOLUME 74.4 fl (80-96); MEAN PLT VOLUME 7.6 fl (7.5-11.1); PLATELET COUNT 337 K/MM3 (134-434); RBC 3.88 M/mm3 (4.00-5.60); RDW 19.4 % (11.9-15.9); WHITE BLOOD COUNT 6.2 K/mm3 (4.0-10.0)
[2018-07-25 07:34] LABS: ANION GAP 7 MMOL/L (8-16); BLOOD UREA NITROGEN 5 mg/dL (7-18); CALCIUM 8.6 mg/dL (8.5-10.1); CHLORIDE 102 mmol/L (98-107); CO2 31 mmol/L (21-32); CREATININE 0.4 mg/dL (0.55-1.3); GLUCOSE,RANDOM 93 mg/dL (74-106); MAGNESIUM 1.5 mg/dL (1.8-2.4); POTASSIUM 3.3 mmol/L (3.5-5.1); SODIUM 140 mmol/L (136-145)
[2018-07-25] MEDS: chlordiazePOXIDE HCL 25 MG CAPSULE PO PRN (08:45)
[2018-07-25] MEDS: ENOXAPARIN NA (PORCINE) 40 MG/0.4 ML DISP.SYRIN SQ SCH (09:24)
[2018-07-25] MEDS: THIAMINE HCL 100 MG TABLET (FP) PO SCH (09:24)
[2018-07-25] MEDS: IRON SUCROSE INJECTION 200 MG in SODIUM CHLORIDE 90 ML IVPB SCH (09:24)
[2018-07-25] MEDS ORDERED: FOLIC ACID 1 MG TABLET (FP) PO SCH (10:00)
[2018-07-25] MEDS ORDERED: amLODIPine BESYLATE 10 MG TABLET (FP) PO SCH (10:00)
[2018-07-25 10:18] VITALS: BP 156/70; PULSE 89; TEMP 97.8
[2018-07-25] MEDS ORDERED: chlordiazePOXIDE 5 MG CAPSULE PO SCH (11:00)
--- NOTE | 2018-07-25 12:35 | DS ---
Physical Examination Vital Signs: Vital Signs Temperature 97.8 F 07/25/18 10:00 Pulse Rate 89 07/25/18 10:00 Respiratory Rate 20 07/24/18 22:00 Blood Pressure 156/70 07/25/18 10:00 O2 Sat by Pulse Oximetry (%) 97 07/25/18 09:00 Findings/Remarks: no fever or chills. No pain, has no SOB. PE: NAD. HEENT: MMM, dry abrasions on L sided periorbital area. CV: RRR, No MRG Lungs: CTAB Ext : no edmea or erythema over upper or lower extremities. L dorsal foot with 2 cm ulcer with no discharge, with no surrounding erythema. R dorsal foot with a small abrasion with no erythema or discharge Labs: CBC, BMP 07/25/18 06:00 07/25/18 06:00 Discharge Summary Reason For Visit: LOCAL INFECTION WOUND Current Active Problems Alcohol intoxication (Acute) Alcohol withdrawal (Acute) Fall (Acute) Hospital Course: 63 y/o man with h/o ETOH abuse, untreated HTN, and mesothelioma who presented to the ER for L foot ulcer. He was recently admitted and treated with Abx for wound infection in L foot, but he left AMA and did not take Abx. this time his ulcer was evaluated and felt it was not infected. His initial Abx were discontinued despite wound cx growing. he has a h/o untreated HTN. He was found to have elevated bP, and was placed on Norvasc. he was found to have mild withdrawal and was started on Librium protocol. He is at 15 mg q6h now and will continue to finish . also cont B12 and folate He has microcytic anemia and will need ful out pt work up. referred to GI 1disp : tx to [facility] for detox condition improved time spent 30 min case was d/w with Dr. Samuel Condition: Stable - Instructions Diet, Activity, Other Instructions: You were admitted and treated for alcohol withdrawal You were started on blood pressure medication ( Amlodipine ) , as you were found to have hypertension continue your treatment at [facility] for withdrawal . your foot wound is not infected and mckay snot need to be treated . avoid tight shoes You need to schedule appointemtn with Dr. Roblero for work up of your anemia ( GI specialist ) avoid alcohol your blood pressure medication need to be prescribed at tx from [facility] Referrals: [facility] [place] [facility] [place] [facility] [place] [Provider Group] Luann Roblero DO [Staff Physician] - Disposition: TRANSFER ACUTE CARE/OTHER HOSP - Home Medications Comprehensive Discharge Medication List: Ambulatory Orders Amlodipine Besylate [Norvasc -] 10 mg PO DAILY tablet 07/25/18 Chlordiazepoxide [Librium -] 10 mg PO [id number] capsule MDD 40 mg 07/25/18 Chlordiazepoxide [Librium -] 15 mg PO [id number] capsule MDD 60 mg 07/25/18 Folic Acid - 1 mg PO DAILY tablet 07/25/18 Thiamine HCl [Vitamin B1 -] 100 mg PO DAILY tablet 07/25/18 This patient is new to me today: No Emergency Visit: Yes ED Registration Date: 07/23/18 Care time: The patient presented to the Emergency Department on the above date and was hospitalized for further evaluation of their emergent condition. Critical Care patient: No - Discharge Referral Referred to [facility] No
[2018-07-26] MEDS ORDERED: chlordiazePOXIDE HCL 10 MG CAPSULE PO SCH (11:00)
== END 2018-07-25 14:24 | disposition short-term general hospital (02) | DRG 380 ==
LOC: JER 18:33 → JERBED 07-23 11:56 → J7W 07-24 09:18
PROVIDERS: ADMIT Internal Medicine; ATTEND Internal Medicine
PROC: HZ2ZZZZ Detoxification Services for Substance Abuse Treatment (ICD-10-PCS; principal; 2018-07-23)
DX: L97.429 Non-pressure chronic ulcer of left heel and midfoot with unspecified severity (principal); L03.116 Cellulitis of left lower limb; D50.9 Iron deficiency anemia, unspecified; F10.239 Alcohol dependence with withdrawal, unspecified; F10.229 Alcohol dependence with intoxication, unspecified; I16.0 Hypertensive urgency; C45.9 Mesothelioma, unspecified
CPT/HCPCS: 36415; 70450-TC; 73630-TC-LT; 80048; 80053; 81003; 81015; 83735; 84100; 85025; 85027; 87040; 87070; 87186; 87205; 97161-GP; 99285-25; J1756; J7030

== ENCOUNTER 2018-07-25 18:13 | Emergency (ER) | payer OTHER ==
--- NOTE | 2018-07-25 18:37 | PDOC ---
History of Present Illness - General Stated Complaint: INTOX Time Seen by Provider: 07/25/18 18:36 - History of Present Illness Initial Comments: 63 year old for male with PMH of HTN, mesothelioma, and chronic EtoH abuse with multiple episodes of acute intoxication in our ED presenting acutely intoxicated. He has no pains or complaints. He states the wants a sandwich and wants to take a nap. Of note, he AMA'd from our facility yesterday after being offered transfer to [facility] detox. Patient was too intoxicated to discuss detox when he arrived, however. 07/25/18 20:16 Past History - Past Medical History Allergies/Adverse Reactions: Allergies Allergy/AdvReac Type Severity Reaction Status Date / Time Fish Containing Products Allergy Mild Swelling Verified 07/26/18 05:20 No Known Drug Allergies Allergy Verified 07/26/18 05:20 Home Medications: Ambulatory Orders NK [No Known Home Medication] 07/26/18 Anemia: No Asthma: No Cancer: Yes (mesothelioma lung cancer) Cardiac Disorders: No CVA: No COPD: No CHF: No DVT: No Dementia: No Diabetes: No GI Disorders: No Disorders: No HTN: Yes Hypercholesterolemia: No Kidney Stones: No Liver Disease: No Psychiatric Problems: Yes (etoh) Seizures: No Thyroid Disease: No - Surgical History Abdominal Surgery: No Appendectomy: No Cardiac Surgery: No Cholecystectomy: No Lung Surgery: No Neurologic Surgery: No Orthopedic Surgery: No - Family Disease History Family Disease History: CA: Mother - Reproductive History Testicular Surgery: No - Immunization History TDAP Vaccination: Yes Immunization Up to Date: Yes - Suicide/Smoking/Psychosocial Hx Smoking Status: No Smoking History: Never smoked Have you smoked in the past 12 months: No Number of Cigarettes Smoked Daily: 5 If you are a former smoker, when did you quit?: 0 Cigars Per Day: 0 'Breaking Loose' booklet given: 09/22/17 Hx Alcohol Use: No Drug/Substance Use Hx: No Substance Use Type: Alcohol Hx Substance Use Treatment: No Review of Systems - Review of Systems Constitutional: No: Chills, Diaphoresis, Fever, Loss of Appetite Respiratory: No: Cough, Orthopnea, Shortness of Breath, SOB with Exertion Cardiac (ROS): No: Chest Pain, Palpitations ABD/GI: No: Diarrhea, Nausea, Poor Appetite, Vomiting : No: Burning, Dysuria Musculoskeletal: Yes: Back Pain. No: Muscle Weakness Integumentary: No: Bruising, Erythema, Pruritus, Sweating Neurological: No: Numbness, Paresthesia, Pre-Existing Deficit Psychiatric: Yes: Depression. No: Anxiety Hematologic/Lymphatic: No: Anemia, Blood Clots, Easy Bleeding *Physical Exam - Physical Exam General Appearance: Yes: Nourished, Appropriately Dressed. No: Apparent Distress HEENT: positive: EOMI, DOUGLAS, Normal ENT Inspection, Normal Voice Neck: positive: Trachea midline, Normal Thyroid, Supple. negative: Tender, Rigid Respiratory/Chest: positive: Lungs Clear, Normal Breath Sounds. negative: Chest Tender, Respiratory Distress Cardiovascular: positive: Regular Rhythm, Regular Rate Gastrointestinal/Abdominal: positive: Normal Bowel Sounds, Flat, Soft. negative : Tender Lymphatic: negative: Adenopathy, Tenderness Musculoskeletal: positive: Normal Inspection. negative: Decreased Range of Motion Extremity: positive: Normal Capillary Refill, Normal Inspection, Normal Range of Motion. negative: Tender Integumentary: positive: Normal Color, Dry, Warm Neurologic: positive: Fully Oriented, Alert, Normal Mood/Affect, Normal Response , Motor Strength 5/5 Medical Decision Making - Medical Decision Making 63 year old male presenting originally intoxicated. He eventualyl sobered up 4- 5 hours later and expressed that he was interested in detox. He stated, that if he could not be sent to detox then he could be sent to the train station to take a train to a friend's home. I discussed this with Dr. West and she would call [facility] to investigate his options further. *DC/Admit/Observation/Transfer Diagnosis at time of Disposition: Alcohol intoxication - Discharge Dispostion Disposition: HOME Condition at time of disposition: Good - Referrals - Patient Instructions Printed Discharge Instructions: DI for Alcohol Abuse Additional Instructions: You were seen in the emergency room today for alcohol intoxication. I highly recommend that you go to detox. It is located at [address] [place] [address]. Come back to the emergency room if you become intoxicated, if you fall down, if you feel short of breath, if you have chest pain, if you have fever or if any new concerning symptom develops. Thank you - Post Discharge Activity
[2018-07-25 19:10] VITALS: BP 98/46; PULSE 90; TEMP 97.8; BMI 33.0
--- NOTE | 2018-07-25 19:37 | PDOC ---
Attending Attestation - Resident Resident Name: Ronald Rizzo - ED Attending Attestation I have performed the following: I have examined & evaluated the patient, The case was reviewed & discussed with the resident, I agree w/resident's findings & plan - HPI HPI: 07/25/18 19:43 Pt is the local alcoholic who is here tonight to get out of the cold; she has no specific complaints. - Physicial Exam PE: 07/25/18 19:43 Agree with resident exam - Medical Decision Making 07/25/18 19:43 Pt will remain here overnight. We will feed him and repeat vitals. IF BP remains low, then we will rx with IVF. 07/26/18 01:06 Dr Vasquez accepted the patient to [facility].... our security will take him there.
--- NOTE | 2018-07-26 00:53 | PDOC ---
*Physical Exam - Vital Signs Last Vital Signs Temp Pulse Resp BP Pulse Ox 97.8 F 90 18 98/46 L 96 07/25/18 18:16 07/25/18 18:16 07/25/18 18:16 07/25/18 18:16 07/25/18 18:16 Medical Decision Making - Medical Decision Making 07/26/18 01:14 63 year old for male with PMH of HTN, mesothelioma, and chronic EtoH abuse with multiple episodes of acute intoxication in our ED presenting for intoxication. Pt resting comfortably in bed. No labs or imaging ordered. When asked pt agrees [facility] saying he does not want to go to [facility]. Pt alert and oriented, ataxic gait, no slurred speech. has capacity to make own decisions. Will dc *DC/Admit/Observation/Transfer Diagnosis at time of Disposition: Alcohol intoxication - Discharge Dispostion Condition at time of disposition: Good Decision to Admit order: No - Referrals - Patient Instructions Printed Discharge Instructions: DI for Alcohol Abuse Additional Instructions: You were seen in the emergency room today for alcohol intoxication. I highly recommend that you go to detox. It is located at [address] [place] [address]. Come back to the emergency room if you become intoxicated, if you fall down, if you feel short of breath, if you have chest pain, if you have fever or if any new concerning symptom develops. Thank you - Post Discharge Activity
== END 2018-07-26 06:35 | disposition home or self-care (01) ==
LOC: JER 18:13
DX: F10.220 Alcohol dependence with intoxication, uncomplicated (principal); I10 Essential (primary) hypertension; C45.9 Mesothelioma, unspecified; Z59.0 Homelessness
CPT/HCPCS: 99282-25

== ENCOUNTER 2018-07-26 08:33 | Inpatient (IN) | payer OTHER ==
[2018-07-26 08:42] VITALS: BMI 33.7
--- NOTE | 2018-07-26 08:55 | HP ---
CIWA Score Nausea/Vomitin Muscle Tremors: 2 Anxiety: 2 Agitation: 2 Paroxysmal Sweats: 1-Minimal Palms Moist Orientation: 0-Oriented Tacttile Disturbances: 1-Very Mild Itch/Numbness Auditory Disturbances: 1-Very Mild Visual Disturbances: 0-None Headache: 2-Mild CIWA-Ar Total Score: 13 - Admission Criteria [facility]ASAS Guidelines: Admission for Medically Managed Detox: Requires at least one of the followin. CIWA greater than 12 2. Seizures within the past 24 hours 3. Delirium tremens within the past 24 hours 4. Hallucinations within the past 24 hours 5. Acute intervention needed for co occurring medical disorder 6. Acute intervention needed for co occurring psychiatric disorder 7. Severe withdrawal that cannot be handled at a lower level of care (continued vomiting, continued diarrhea, abnormal vital signs) requiring intravenous medication and/or fluids 8. Patient presents the following: CIWA greater than 12 Admission Criteria Met: Admission criteria met Admission ROS [facility] - HPI Chief Complaint: i need help to stop drinking alcohol Allergies/Adverse Reactions: Allergies Allergy/AdvReac Type Severity Reaction Status Date / Time Fish Containing Products Allergy Mild Swelling Verified 07/26/18 05:20 No Known Drug Allergies Allergy Verified 07/26/18 05:20 History of Present Illness: this 63 years old male with alcohol dependence since age of [age] years old, extensive history,last detox 04/05/18 to 04/08/18, seen in [facility] last night,receiving librium last noght multiple visit to er syncope alcohol related history of hypertension history of mesolithioma infected ulcer of left foot and right foot longest period of sobriety 6 years Exam Limitations: No Limitations - Ebola screening Have you traveled outside of the country in the last 21 days: No Have you had contact with anyone from an Ebola affected area: No Have you been sick,other than usual withdrawal symptoms: No Do you have a fever: No - Review of Systems Constitutional: Chills, Loss of Appetite, Malaise, Night Sweats, Changes in sleep, Weakness EENT: reports: Nose Congestion Respiratory: reports: No Symptoms reported, Other (mesolithioma) Cardiac: reports: No Symptoms Reported GI: reports: Nausea, Poor Appetite, Indigestion, Abdominal cramping : reports: No Symptoms Reported Musculoskeletal: reports: Back Pain, Muscle Pain Integumentary: reports: Dryness Neuro: reports: Headache, Tremors Endocrine: reports: No Symptoms Reported Hematology: reports: No Symptoms Reported Psychiatric: reports: No Sypmtoms Reported, Judgement Intact, Mood/Affect Appropiate, Orientated x3 Other Systems: Reviewed and Negative Patient History - Patient Medical History Hx Anemia: No Hx Asthma: No Hx Chronic Obstructive Pulmonary Disease (COPD): No Hx Cancer: Yes (mesothelioma lung cancer) Hx Cardiac Disorders: No Hx Congestive Heart Failure: No Hx Hypertension: Yes (non compliance) Hx Hypercholesterolemia: No Hx Pacemaker: No HX Cerebrovascular Accident: No Hx Seizures: No Hx Dementia: No Hx Diabetes: No Hx Gastrointestinal Disorders: No Hx Liver Disease: No Hx Genitourinary Disorders: No Hx Sexually Transmitted Disorders: No Hx Renal Disease (ESRD): No Hx Thyroid Disease: No Hx Human Immunodeficiency Virus (HIV): No (never been tested,did not want the test done) Hx Hepatitis C: No Hx Depression: No Hx Suicide Attempt: No Hx Bipolar Disorder: No Hx Schizophrenia: No Other Medical History: no sucidal,no homicidal - Patient Surgical History Past Surgical History: No Hx Neurologic Surgery: No Hx Cataract Extraction: No Hx Cardiac Surgery: No Hx Lung Surgery: No Hx Breast Surgery: No Hx Breast Biopsy: No Hx Abdominal Surgery: No Hx Appendectomy: No Hx Cholecystectomy: No Hx Genitourinary Surgery: No Hx Section: No Hx Orthopedic Surgery: No Hx Hysterectomy: No Anesthesia Reaction: No - PPD History Previous Implant?: Yes Documented Results: Negative w/proof Date: 02/10/18 Results: 0 mm PPD to be Administered?: No - Smoking Cessation Smoking history: Never smoked Have you smoked in the past 12 months: No Aproximately how many cigarettes per day: 0 If you are a former smoker, when did you quit?: 0 Cigars Per Day: 0 Hx Chewing Tobacco Use: No - Substance & Tx. History Hx Alcohol Use: Yes Hx Substance Use: No Substance Use Type: Alcohol Hx Substance Use Treatment: Yes ([facility] 04/05/18 to 04/08/18) - Substances Abused Alcohol Route: Oral Frequency: Daily Amount used: 2pints of vodka Age of first use: 16 Date of Last Use: 07/25/18 Family Disease History - Family Disease History Family Disease History: CA: Mother (), Brother (Colon CA), Other: Grandparent (ALCOHOLISM), Father (ALCOHOL,), Son () Admission Physical Exam [facility] - Vital Signs Vital Signs: Vital Signs - 24 hr 07/26/18 08:39 Temperature 98.1 F Pulse Rate 97 H Respiratory 18 Rate Blood Pressure 134/73 - Physical General Appearance: Yes: Moderate Distress, Tremorous, Irritable, Sweating, Anxious HEENTM: Yes: Normal ENT Inspection, DOUGLAS, Pharynx Normal Respiratory: Yes: Lungs Clear, Normal Breath Sounds, No Respiratory Distress Neck: Yes: Within Normal Limits, Supple, Trachea in good position Breast: Yes: Within Normal Limits Cardiology: Yes: Within Normal Limits, Regular Rhythm, Regular Rate, S1, S2 Abdominal: Yes: Within Normal Limits, Normal Bowel Sounds, Non Tender, Flat, Soft Genitourinary: Yes: Within Normal Limits Back: Yes: Muscle Spasm Musculoskeletal: Yes: Back pain, Muscle Pain Extremities: Yes: Tremors, Other (laft foot dorsal aspect with scab formation size 2x1 cm) Neurological: Yes: 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 apprentice II-XII NML intact, Fully Oriented, Alert, Motor Strength 5/5 Integumentary: Yes: Dry Lymphatic: Yes: Within Normal Limits - Diagnostic (1) Alcohol dependence with uncomplicated withdrawal Current Visit: No Status: Chronic (2) Syncope Current Visit: Yes Status: Acute (3) Mesothelioma (pleural) Current Visit: No Status: Chronic (4) Essential hypertension Current Visit: Yes Status: Acute (5) Ulcer of left foot Current Visit: Yes Status: Acute (6) Fracture of right shoulder Current Visit: Yes Status: Acute Cleared for Admission [facility] - Detox or Rehab [facility] Level of Care: Medically Managed Detox Regimen/Protocol: Librium [facility] Breath Alcohol Content Breath Alcohol Content: 0 Urine Drug Screen - Results Drug Screen Negative: No Urine Drug Screen Results: BZO-Benzodiazepines Inpatient Rehab Admission - Rehab Decision to Admit Inpatient rehab admission?: No
[2018-07-26] MEDS ORDERED: P-EPHED 60MG/TRIPROLIDI 2.5MG TABLET PO PRN (09:08)
[2018-07-26] MEDS ORDERED: chlordiazePOXIDE HCL 25 MG CAPSULE PO PRN (09:08)
[2018-07-26] MEDS ORDERED: MAGNESIUM HYDROX 2400MG/30ML ORAL SUSPENSION 30 ML CUP PO PRN (09:08)
[2018-07-26] MEDS ORDERED: MAGNESIUM CITRATE 300 ML BOTTLE PO PRN (09:08)
[2018-07-26] MEDS ORDERED: MENTHOL/PHENOL 1 EACH UD MM PRN (09:08)
[2018-07-26] MEDS ORDERED: guaiFENesin/D-METHORPHAN HB 10 ML UNIT-DOSE CUPS PO PRN (09:08)
[2018-07-26] MEDS ORDERED: LOPERAMIDE HCL 2 MG CAPSULE PO PRN (09:08)
[2018-07-26] MEDS ORDERED: IBUPROFEN 400 MG TABLET (FP) PO PRN (09:08)
[2018-07-26] MEDS: chlordiazePOXIDE HCL 25 MG CAPSULE PO SCH ×3 (11:29→22:27)
[2018-07-26] MEDS: PRENATAL VITAMINS W/ FOLIC ACID TABLET (FP) PO SCH (11:30)
[2018-07-26] MEDS: ACETAMINOPHEN 325 MG TABLET (FP) PO PRN (17:17)
[2018-07-26] MEDS: THIAMINE HCL 100 MG TABLET (FP) PO SCH (22:27)
[2018-07-26] MEDS: MELATONIN 5 MG TABLETS PO PRN (22:27)
[2018-07-27] MEDS: chlordiazePOXIDE HCL 25 MG CAPSULE PO SCH ×4 (06:05→22:19)
[2018-07-27] MEDS: ACETAMINOPHEN 325 MG TABLET (FP) PO PRN ×2 (06:06→12:15)
--- NOTE | 2018-07-27 09:32 | PN ---
[facility] CIWA - CIWA Score Nausea/Vomitin Muscle Tremors: 2 Anxiety: 2 Agitation: 2 Paroxysmal Sweats: 1-Minimal Palms Moist Orientation: 0-Oriented Tacttile Disturbances: 1-Very Mild Itch/Numbness Auditory Disturbances: 0-None Visual Disturbances: 1-Very Mild Sensitivity Headache: 2-Mild CIWA-Ar Total Score: 13 [facility] Progress Note (SOAP) Subjective: alert,irritable,anxious,interrupted sleep,tremor Objective: 07/27/18 09:30 Vital Signs Temperature 98.7 F 07/27/18 09:10 Pulse Rate 79 07/27/18 09:10 Respiratory Rate 20 07/27/18 09:10 Blood Pressure 140/99 07/27/18 09:10 O2 Sat by Pulse Oximetry (%) labs pending Assessment: 07/27/18 09:31 withdrawal symptom Plan: continue detox
[2018-07-27 10:54] LABS: HEMATOCRIT 29.2 % (35.4-49); HEMOGLOBIN 9.3 GM/dL (11.7-16.9); MCH 24.4 pg (25.7-33.7); MCHC 31.9 g/dl (32.0-35.9); MEAN CELL VOLUME 76.3 fl (80-96); MEAN PLT VOLUME 7.8 fl (7.5-11.1); PLATELET COUNT 299 K/MM3 (134-434); RBC 3.83 M/mm3 (4.00-5.60); RDW 20.2 % (11.9-15.9); WHITE BLOOD COUNT 6.6 K/mm3 (4.0-10.0)
[2018-07-27] MEDS: PRENATAL VITAMINS W/ FOLIC ACID TABLET (FP) PO SCH (10:54)
[2018-07-27 11:14] LABS: ALBUMIN 2.9 g/dl (3.4-5.0); ALK PHOS 120 U/L (45-117); ANION GAP 7 MMOL/L (8-16); BILIRUBIN,TOTAL 0.2 mg/dL (0.2-1); BLOOD UREA NITROGEN 10 mg/dL (7-18); CALCIUM 8.5 mg/dL (8.5-10.1); CHLORIDE 104 mmol/L (98-107); CO2 31 mmol/L (21-32); CREATININE 0.5 mg/dL (0.55-1.3); GLUCOSE,RANDOM 97 mg/dL (74-106); POTASSIUM 3.4 mmol/L (3.5-5.1); SGOT/AST 19 U/L (15-37); SGPT/ALT 15 U/L (13-61); SODIUM 141 mmol/L (136-145)
[2018-07-27] MEDS: BACITRACIN 0.9 GM PACKET TP SCH (22:19)
[2018-07-27] MEDS: MELATONIN 5 MG TABLETS PO PRN (22:20)
[2018-07-27] MEDS: THIAMINE HCL 100 MG TABLET (FP) PO SCH (22:21)
[2018-07-28] MEDS: chlordiazePOXIDE HCL 25 MG CAPSULE PO SCH (05:47)
[2018-07-28] MEDS: PRENATAL VITAMINS W/ FOLIC ACID TABLET (FP) PO SCH (10:27)
[2018-07-28] MEDS: chlordiazePOXIDE 5 MG CAPSULE PO SCH ×3 (10:27→22:47)
[2018-07-28] MEDS: BACITRACIN 0.9 GM PACKET TP SCH ×2 (10:27→22:47)
[2018-07-28] MEDS: MAG HYDROX/AL HYDROX/SIMETH 30 ML UNIT-DOSE CUP PO PRN (16:41)
--- NOTE | 2018-07-28 16:52 | PN ---
[facility] CIWA - CIWA Score Nausea/Vomitin-No Nausea/No Vomiting Muscle Tremors: 3 Anxiety: 3 Agitation: 0-Normal Activity Paroxysmal Sweats: No Perspiration Orientation: 0-Oriented Tacttile Disturbances: 0-None Auditory Disturbances: 1-Very Mild Visual Disturbances: 3-Moderate Sensitivity Headache: 0-None Present CIWA-Ar Total Score: 10 S Progress Note (SOAP) Subjective: Interrupted Sleep, Body Aches, Tremors. Patient Reports Intermittent Sensations of Numbness, Tingling, and Weakness in Right Arm X approx. 1 week. Patient reports that he fractured a bone in his upper Right Arm a few weeks ago. Patient was evaluated at ER for Fracture, but did not follow-up with his [employer] after that. Patient denies sensations of Numbness / Tingling / Weakness in any other part of his body. Objective: PATIENT A & O X 3, OBSERVED AMBULATING ON UNIT. IN NO ACUTE DISTRESS. PATIENT DENIES CHEST PAIN. 07/28/18 16:51 Vital Signs Temperature 97.4 F L 07/28/18 13:38 Pulse Rate 85 07/28/18 13:38 Respiratory Rate 18 07/28/18 13:38 Blood Pressure 130/81 07/28/18 13:38 O2 Sat by Pulse Oximetry (%) Laboratory Tests 07/27/18 07/27/18 07/27/18 08:10 08:10 08:10 WBC 6.6 RBC 3.83 L Hgb 9.3 L Hct 29.2 L MCV 76.3 L MCH 24.4 L MCHC 31.9 L RDW 20.2 H Plt Count 299 MPV 7.8 Sodium 141 Potassium 3.4 L Chloride 104 Carbon Dioxide 31 Anion Gap 7 L BUN 10 Creatinine 0.5 L Creat Clearance w eGFR > 60 Random Glucose 97 Calcium 8.5 Total Bilirubin 0.2 AST 19 ALT 15 Alkaline Phosphatase 120 H Total Protein 6.0 L Albumin 2.9 L RPR Titer Nonreactive LABS NOTED. PATIENT HAS BEEN ANEMIC ON PREVIOUS ADMISSIONS. 07/28/18 16:59 Assessment: 07/28/18 16:52 WITHDRAWAL SYMPTOMS. HTN. HYPOKALEMIA. ANEMIA (MICROCYRITC). 07/28/18 16:56 Plan: CONTINUE DETOX. LISINOPRIL, 10 MG PO DAILY FOR ELEVATED BP. K-DUR, 40 MEQ PO X 1 NOW, THEN 20 MEQ PO BID AFTER STARTING TOMORROW. FEOSOL, 325 MG PO TIDCM FOR MICROCYTIC ANEMIA REPEAT CBC FOR ANEMIA NOTED ON ADMISSION CBC.
[2018-07-28] MEDS ORDERED: LISINOPRIL 10 MG TABLET (FP) PO ONE (17:30)
[2018-07-28] MEDS ORDERED: POTASSIUM CHLORIDE TABS 20 MEQ TABLET.ER (FP) PO ONE (17:30)
[2018-07-28] MEDS: FERROUS SO4 325 MG TABLET (FP) PO SCH (17:48)
[2018-07-28] MEDS: THIAMINE HCL 100 MG TABLET (FP) PO SCH (22:48)
[2018-07-29] MEDS: MAG HYDROX/AL HYDROX/SIMETH 30 ML UNIT-DOSE CUP PO PRN (03:54)
[2018-07-29] MEDS: chlordiazePOXIDE 5 MG CAPSULE PO SCH (06:39)
[2018-07-29] MEDS: FERROUS SO4 325 MG TABLET (FP) PO SCH ×3 (07:30→17:59)
--- NOTE | 2018-07-29 09:44 | PN ---
S Progress Note (SOAP) Subjective: alert,irritable,pain in the epigastrium,interrupted sleep Objective: 07/29/18 09:42 Vital Signs Temperature 98.6 F 07/29/18 09:02 Pulse Rate 78 07/29/18 09:02 Respiratory Rate 20 07/29/18 09:02 Blood Pressure 151/99 07/29/18 09:02 O2 Sat by Pulse Oximetry (%) Assessment: 07/29/18 09:43 withdrawal symptom Plan: continue detox,zantac 150 mgs po bid,zaymia,k is 3,4,
[2018-07-29] MEDS ORDERED: LISINOPRIL 10 MG TABLET (FP) PO SCH (10:00)
[2018-07-29 11:07] LABS: BASO % 0.3 % (0-2.0); EOS % 0.7 % (0-4.5); HEMATOCRIT 32.9 % (35.4-49); HEMOGLOBIN 10.4 GM/dL (11.7-16.9); LYMPH % 8.6 % (8-40); MCH 24.6 pg (25.7-33.7); MCHC 31.7 g/dl (32.0-35.9); MEAN CELL VOLUME 77.5 fl (80-96); MEAN PLT VOLUME 8.3 fl (7.5-11.1); MONO % 8.9 % (3.8-10.2); NEUT % 81.5 % (42.8-82.8); PLATELET COUNT 297 K/MM3 (134-434); RBC 4.25 M/mm3 (4.00-5.60); RDW 20.4 % (11.9-15.9); WHITE BLOOD COUNT 9.2 K/mm3 (4.0-10.0)
[2018-07-29] MEDS: BACITRACIN 0.9 GM PACKET TP SCH ×2 (11:46→22:22)
[2018-07-29] MEDS: LISINOPRIL 10 MG TABLET (FP) PO SCH (11:46)
[2018-07-29] MEDS: chlordiazePOXIDE HCL 10 MG CAPSULE PO SCH ×3 (11:46→22:21)
[2018-07-29] MEDS: RANITIDINE HCL 150 MG TABLET (FP) PO SCH ×2 (11:46→22:21)
[2018-07-29] MEDS: POTASSIUM CHLORIDE TABS 20 MEQ TABLET.ER (FP) PO SCH ×2 (11:52→18:02)
[2018-07-29] MEDS: PRENATAL VITAMINS W/ FOLIC ACID TABLET (FP) PO SCH (11:52)
[2018-07-29] MEDS: THIAMINE HCL 100 MG TABLET (FP) PO SCH (22:20)
[2018-07-30] MEDS: chlordiazePOXIDE HCL 10 MG CAPSULE PO SCH (05:39)
--- NOTE | 2018-07-30 08:51 | PN ---
S Progress Note (SOAP) Subjective: alert,no complaint Objective: 07/30/18 08:49 Vital Signs Temperature 97.8 F 07/30/18 06:18 Pulse Rate 75 07/30/18 06:18 Respiratory Rate 18 07/30/18 06:18 Blood Pressure 98/62 07/30/18 06:18 O2 Sat by Pulse Oximetry (%) Assessment: 07/30/18 08:50 detox completed,no withdrawal symptom Plan: discharge today,follow up with after care program as arrangement,patient refused to go to rehab
--- NOTE | 2018-07-30 08:57 | DS ---
[facility] Detox Discharge Summary Admission Date: 07/26/18 Discharge Date: 07/30/18 - History Present History: Alcohol Dependence Additional Comments: patient refused to go to rehab ,advise follow up with [facility] Pertinent Past History: syncope alcohol related essential hypertension mesolithioma ulcer of left foot fracture of right shoulder hypokalemia anemia gerd - Physical Exam Results Vital Signs: Vital Signs Temperature 97.8 F 07/30/18 06:18 Pulse Rate 75 07/30/18 06:18 Respiratory Rate 18 07/30/18 06:18 Blood Pressure 98/62 07/30/18 06:18 O2 Sat by Pulse Oximetry (%) Pertinent Admission Physical Exam Findings: withdrawal symptom Vital Signs Temperature 97.8 F 07/30/18 06:18 Pulse Rate 75 07/30/18 06:18 Respiratory Rate 18 07/30/18 06:18 Blood Pressure 98/62 07/30/18 06:18 O2 Sat by Pulse Oximetry (%) Laboratory Last Values WBC 9.2 K/mm3 (4.0-10.0) 07/29/18 07:00 RBC 4.25 M/mm3 (4.00-5.60) 07/29/18 07:00 Hgb 10.4 GM/dL (11.7-16.9) L 07/29/18 07:00 Hct 32.9 % (35.4-49) L 07/29/18 07:00 MCV 77.5 fl (80-96) L 07/29/18 07:00 MCH 24.6 pg (25.7-33.7) L 07/29/18 07:00 MCHC 31.7 g/dl (32.0-35.9) L 07/29/18 07:00 RDW 20.4 % (11.9-15.9) H 07/29/18 07:00 Plt Count 297 K/MM3 (134-434) 07/29/18 07:00 MPV 8.3 fl (7.5-11.1) 07/29/18 07:00 Absolute Neuts (auto) 7.5 K/mm3 (1.5-8.0) 07/29/18 07:00 Neutrophils % 81.5 % (42.8-82.8) D 07/29/18 07:00 Lymphocytes % 8.6 % (8-40) D 07/29/18 07:00 Monocytes % 8.9 % (3.8-10.2) 07/29/18 07:00 Eosinophils % 0.7 % (0-4.5) 07/29/18 07:00 Basophils % 0.3 % (0-2.0) 07/29/18 07:00 Nucleated RBC % 0 % (0-0) 07/29/18 07:00 Sodium 141 mmol/L (136-145) 07/27/18 08:10 Potassium 3.4 mmol/L (3.5-5.1) L 07/27/18 08:10 Chloride 104 mmol/L (98-107) 07/27/18 08:10 Carbon Dioxide 31 mmol/L (21-32) 07/27/18 08:10 Anion Gap 7 MMOL/L (8-16) L 07/27/18 08:10 BUN 10 mg/dL (7-18) 07/27/18 08:10 Creatinine 0.5 mg/dL (0.55-1.3) L 07/27/18 08:10 Creat Clearance w eGFR > 60 (>60) 07/27/18 08:10 Random Glucose 97 mg/dL (74-106) 07/27/18 08:10 Calcium 8.5 mg/dL (8.5-10.1) 07/27/18 08:10 Total Bilirubin 0.2 mg/dL (0.2-1) 07/27/18 08:10 AST 19 U/L (15-37) 07/27/18 08:10 ALT 15 U/L (13-61) 07/27/18 08:10 Alkaline Phosphatase 120 U/L (45-117) H 07/27/18 08:10 Total Protein 6.0 g/dl (6.4-8.2) L 07/27/18 08:10 Albumin 2.9 g/dl (3.4-5.0) L 07/27/18 08:10 RPR Titer Nonreactive (NONREACTIVE) 07/27/18 08:10 - Treatment Hospital Course: Detox Protocol Followed, Detoxed Safely, Responded well, Discharged Condition Good Patient has Accepted a Rehab Referral to: declined - Medication Discharge Medications: Ambulatory Orders NK [No Known Home Medication] 07/26/18 - Diagnosis (1) Alcohol dependence with uncomplicated withdrawal Current Visit: No Status: Chronic (2) Syncope Current Visit: Yes Status: Acute (3) Mesothelioma (pleural) Current Visit: No Status: Chronic (4) Essential hypertension Current Visit: Yes Status: Acute (5) Ulcer of left foot Current Visit: Yes Status: Acute (6) Fracture of right shoulder Current Visit: Yes Status: Acute - AMA Did Patient Leave Against Medical Advice: No
--- NOTE | 2018-07-30 09:06 | PN ---
[facility] Progress Note Note: e prescriptions of lisinopril 10 mgs po daily for 30 days,ferrous sulfate 325 mgs po tid for 30 days,k dur 20 meq po bid for 5 days,zantac 150 mgs po bid for 30 days patient will follow up with [facility]
[2018-07-30 09:16] VITALS: BP 129/72; PULSE 80; TEMP 98.4
[2018-07-30] MEDS: BACITRACIN 0.9 GM PACKET TP SCH (09:40)
[2018-07-30] MEDS: POTASSIUM CHLORIDE TABS 20 MEQ TABLET.ER (FP) PO SCH (09:40)
[2018-07-30] MEDS: FERROUS SO4 325 MG TABLET (FP) PO SCH (09:40)
[2018-07-30] MEDS: PRENATAL VITAMINS W/ FOLIC ACID TABLET (FP) PO SCH (09:50)
[2018-07-30] MEDS: RANITIDINE HCL 150 MG TABLET (FP) PO SCH (10:00)
[2018-07-30] MEDS: LISINOPRIL 10 MG TABLET (FP) PO SCH (11:33)
== END 2018-07-30 09:35 | disposition home or self-care (01) | DRG 775 ==
LOC: YASAS 08:33 → Y6N 10:13
PROVIDERS: ADMIT Surgery; ATTEND Surgery
PROC: HZ2ZZZZ Detoxification Services for Substance Abuse Treatment (ICD-10-PCS; principal; 2018-07-26)
DX: F10.230 Alcohol dependence with withdrawal, uncomplicated (principal); R55 Syncope and collapse; I10 Essential (primary) hypertension; C45.9 Mesothelioma, unspecified; L97.529 Non-pressure chronic ulcer of other part of left foot with unspecified severity; Z87.81 Personal history of (healed) traumatic fracture; Z59.0 Homelessness
CPT/HCPCS: 36415; 80053; 85025; 85027; 86593; 99282-25

== ENCOUNTER 2018-07-31 17:23 | Emergency (ER) | payer OTHER ==
[2018-07-31 17:43] VITALS: BMI 33.0
--- NOTE | 2018-07-31 19:18 | PDOC ---
History of Present Illness - General Chief Complaint: Alcohol intoxication Stated Complaint: BACK PAIN, INTOX Time Seen by Provider: 07/31/18 19:18 - History of Present Illness Initial Comments: 63 year old for male with PMH of HTN, mesothelioma, and chronic EtoH abuse with multiple episodes of acute intoxication in our ED presenting acutely intoxicated. He has no pains or complaints. He was recently discharged from detox yesterday and refused rehab. He states the wants a sandwich and was unable to tell me how much he drank today, but said a bunch. Denies wanting to go to rehab today. 07/31/18 19:54 Past History - Past Medical History Allergies/Adverse Reactions: Allergies Allergy/AdvReac Type Severity Reaction Status Date / Time Fish Containing Products Allergy Mild Swelling Verified 07/26/18 05:20 No Known Drug Allergies Allergy Verified 07/26/18 05:20 Home Medications: Ambulatory Orders Ferrous Sulfate [Feosol] 325 mg PO TIDCM #90 tab 07/30/18 Lisinopril [Prinivil] 10 mg PO DAILY #30 tablet 07/30/18 Potassium Chloride [K-Dur -] 20 meq PO BID@1000,1800 #10 tablet.er 07/30/18 Ranitidine [Zantac -] 150 mg PO BID #60 tablet 07/30/18 Anemia: No Asthma: No Cancer: Yes (mesothelioma lung cancer) Cardiac Disorders: No CVA: No COPD: No CHF: No DVT: No Dementia: No Diabetes: No GI Disorders: No Disorders: No HTN: Yes (non compliance) Hypercholesterolemia: No Kidney Stones: No Liver Disease: No Psychiatric Problems: Yes (etoh) Seizures: No Thyroid Disease: No - Surgical History Abdominal Surgery: No Appendectomy: No Cardiac Surgery: No Cholecystectomy: No Lung Surgery: No Neurologic Surgery: No Orthopedic Surgery: No - Family Disease History Family Disease History: CA: Mother - Reproductive History Testicular Surgery: No - Immunization History TDAP Vaccination: Yes Immunization Up to Date: Yes - Suicide/Smoking/Psychosocial Hx Smoking Status: No Smoking History: Never smoked Have you smoked in the past 12 months: No Number of Cigarettes Smoked Daily: 0 If you are a former smoker, when did you quit?: 0 Cigars Per Day: 0 Information on smoking cessation initiated: No 'Breaking Loose' booklet given: 09/22/17 Hx Alcohol Use: Yes Drug/Substance Use Hx: No Substance Use Type: Alcohol Hx Substance Use Treatment: Yes ([facility] 04/05/18 to 04/08/18) Review of Systems - Review of Systems Able to Perform ROS?: No (intoxicated) *Physical Exam - Vital Signs Last Vital Signs Temp Pulse Resp BP Pulse Ox 97.4 F L 86 16 99/55 L 97 07/31/18 17:33 07/31/18 17:33 07/31/18 17:33 07/31/18 17:33 07/31/18 17:33 - Physical Exam General Appearance: Yes: Nourished, Appropriately Dressed, Apparent Distress, Alcohol on Breath. No: Intoxicated HEENT: positive: EOMI, DOUGLAS. negative: Normal Voice (slurred speech) Neck: negative: Tender, Normal Thyroid Respiratory/Chest: positive: Lungs Clear, Respiratory Distress. negative: Chest Tender Cardiovascular: positive: Regular Rhythm, Regular Rate Gastrointestinal/Abdominal: positive: Normal Bowel Sounds, Flat, Soft. negative : Tender Lymphatic: negative: Adenopathy, Tenderness Musculoskeletal: positive: Normal Inspection. negative: Decreased Range of Motion Extremity: positive: Normal Capillary Refill, Normal Inspection, Normal Range of Motion. negative: Tender Integumentary: positive: Normal Color, Dry, Warm Neurologic: positive: Normal Mood/Affect, Motor Strength 5/5. negative: Alert ( intoxicated), Normal Response (intoxicated) Moderate Sedation - Procedure Monitoring Vital Signs: Procedure Monitoring Vital Signs Temperature 97.4 F L 07/31/18 17:33 Pulse Rate 86 07/31/18 17:33 Respiratory Rate 16 07/31/18 17:33 Blood Pressure 99/55 L 07/31/18 17:33 O2 Sat by Pulse Oximetry (%) 97 07/31/18 17:33 Medical Decision Making - Medical Decision Making Intoxicated male presenting for "just need some place to rest and sandwich". Patient slightly more sober a few hours later and refusing labs. He otherwise appears stable. Pending discharge home when completely sober. Patient signed out to Dr. Lenz in stable condition. 07/31/18 23:32
--- NOTE | 2018-08-01 00:21 | PDOC ---
*Physical Exam - Vital Signs Last Vital Signs Temp Pulse Resp BP Pulse Ox 97.4 F L 85 18 108/71 97 07/31/18 17:33 07/31/18 22:28 07/31/18 22:28 07/31/18 22:28 07/31/18 22:28 Medical Decision Making - Medical Decision Making 08/01/18 00:[address] Rizzo. Patient is 63M, well known to ED, here today with alcohol intoxication. No complaints. Pending sobriety, and discharge. Refusing detox. 08/01/18 04:28 Reassessed, arousable, steady breaths, no pain. *DC/Admit/Observation/Transfer Diagnosis at time of Disposition: Alcohol intoxication Qualifiers: Complication of substance-induced condition: uncomplicated Qualified Code(s): F10.920 - Alcohol use, unspecified with intoxication, uncomplicated - Discharge Dispostion Disposition: HOME Condition at time of disposition: Improved - Referrals - Patient Instructions Printed Discharge Instructions: DI for Alcohol Abuse - Post Discharge Activity
--- NOTE | 2018-08-01 00:42 | PDOC ---
Attending Attestation - HPI HPI: 08/01/18 00:44 The patient is a 63 year old male, with a significant PMH of hypertension, mesothelioma, and chronic EtoH abuse, who presents to the emergency department with alcohol intoxication. The patient denies any pain or complaints. Denies any recent injuries or trauma. The patient request a food tray upon presentation. The patient states his last alcoholic drink was earlier today. However, he is unable to quantify how many alcoholic beverages he has consumed. The patient denies chest pain, shortness of breath, headache and dizziness. Denies fever, chills, nausea, vomit, diarrhea and constipation. Denies dysuria, frequency, urgency and hematuria. Allergies: NKA. - Physicial Exam PE: 08/01/18 00:44 08/01/18 01:11 GENERAL: Awake, alert, and fully oriented, in no acute distress HEAD: No signs of trauma EYES: +L. Abrasion on the right lateral brow. PERRLA, EOMI, sclera anicteric, conjunctiva clear ENT: Auricles normal inspection, hearing grossly normal, nares patent, oropharynx clear without exudates. Moist mucosa NECK: Normal ROM, supple, no lymphadenopathy, JVD, or masses LUNGS: Breath sounds equal, clear to auscultation bilaterally. No wheezes, and no crackles HEART: Regular rate and rhythm, normal S1 and S2, no murmurs, rubs or gallops ABDOMEN: Soft, nontender, normoactive bowel sounds. No guarding, no rebound. No masses EXTREMITIES: Normal range of motion, no edema. No clubbing or cyanosis. No cords, erythema, or tenderness NEUROLOGICAL: Cranial nerves II through XII grossly intact. Normal speech, normal gait SKIN: Warm, Dry, normal turgor, no rashes or lesions noted. - Medical Decision Making 08/01/18 00:44 Documentation prepared by Geovanna Vera, acting as medical transcriber for Lorri Kumar MD. <Geovanna Vera - Last Filed: 08/01/18 01:11> - Resident Resident Name: Ronald Rizzo - ED Attending Attestation I have performed the following: I have examined & evaluated the patient, The case was reviewed & discussed with the resident, I agree w/resident's findings & plan - Medical Decision Making 08/01/18 06:38 Pt will be signed out to the day team. <Lorri Kumar - Last Filed: 08/01/18 06:38>
--- NOTE | 2018-08-01 07:07 | PDOC ---
*Physical Exam - Vital Signs Last Vital Signs Temp Pulse Resp BP Pulse Ox 97.4 F L 85 18 108/71 97 07/31/18 17:33 07/31/18 22:28 07/31/18 22:28 07/31/18 22:28 07/31/18 22:28 Medical Decision Making - Medical Decision Making Pt was signed out to me by resident Dr. Lenz, who explained the presentation, ED course, any pending results, and needed interventions. Pending clinical sobriety, pt has no current complaints. Pt is currently stable and is lying comfortably. 08/01/18 07:06 Pt was provided 650 mg PO tylenol for abdominal discomfort. Pt eloped before serial abdominal exams could be repeated. Pt appeared clinically sober ( speaking clearly in full sentences, no nystagmus). 08/01/18 10:00 *DC/Admit/Observation/Transfer Diagnosis at time of Disposition: Alcohol intoxication Qualifiers: Complication of substance-induced condition: uncomplicated Qualified Code(s): F10.920 - Alcohol use, unspecified with intoxication, uncomplicated - Discharge Dispostion Disposition: ELOPED Condition at time of disposition: Improved Decision to Admit order: No - Referrals - Patient Instructions Printed Discharge Instructions: DI for Alcohol Abuse - Post Discharge Activity
[2018-08-01] MEDS ORDERED: ACETAMINOPHEN 325 MG TABLET (FP) PO ONE (08:39)
[2018-08-01 09:18] VITALS: BP 129/70; PULSE 92; TEMP 99.2
[2018-08-01] MEDS ORDERED: ACETAMINOPHEN 325 MG TABLET (FP) ONE (09:37)
== END 2018-08-01 10:34 | disposition home or self-care (01) ==
LOC: JER 17:23
DX: F10.220 Alcohol dependence with intoxication, uncomplicated (principal); C45.9 Mesothelioma, unspecified; I10 Essential (primary) hypertension; Z59.0 Homelessness
CPT/HCPCS: 99283-25

== ENCOUNTER 2018-08-01 14:12 | Emergency (ER) | payer OTHER ==
[2018-08-01 14:38] VITALS: BP 170/85; PULSE 78; TEMP 98; BMI 26.5
--- NOTE | 2018-08-01 16:01 | PDOC ---
History of Present Illness - General Chief Complaint: Injury Stated Complaint: FALL Time Seen by Provider: 08/01/18 16:00 - History of Present Illness Initial Comments: 63yo M with PMH of HTN, mesothelioma, chronic ETOH abuse presenting with left foot wound. Patient is well known to this ED and was last seen this morning. He is unable to report who brought him here. He usually drinks half a pint of vodka per day, but denies drinking alcohol today. Patient repeatedly requested something to eat. When asked about his left foot wound, he said "oh, you just reminded me, can you check this out?" Denies fevers, chills, chest pain, or shortness of breath. He reports chronic back pain that is at his baseline. Past History - Past Medical History Allergies/Adverse Reactions: Allergies Allergy/AdvReac Type Severity Reaction Status Date / Time Fish Containing Products Allergy Mild Swelling Verified 08/01/18 14:39 No Known Drug Allergies Allergy Verified 08/01/18 14:39 Home Medications: Ambulatory Orders Ferrous Sulfate [Feosol] 325 mg PO TIDCM #90 tab 07/30/18 Lisinopril [Prinivil] 10 mg PO DAILY #30 tablet 07/30/18 Potassium Chloride [K-Dur -] 20 meq PO BID@1000,1800 #10 tablet.er 07/30/18 Ranitidine [Zantac -] 150 mg PO BID #60 tablet 07/30/18 Anemia: No Asthma: No Cancer: Yes (mesothelioma lung cancer) Cardiac Disorders: No CVA: No COPD: No CHF: No DVT: No Dementia: No Diabetes: No GI Disorders: No Disorders: No HTN: Yes (non compliance) Hypercholesterolemia: No Kidney Stones: No Liver Disease: No Psychiatric Problems: Yes (etoh) Seizures: No Thyroid Disease: No - Surgical History Abdominal Surgery: No Appendectomy: No Cardiac Surgery: No Cholecystectomy: No Lung Surgery: No Neurologic Surgery: No Orthopedic Surgery: No - Family Disease History Family Disease History: CA: Mother - Reproductive History Testicular Surgery: No - Immunization History TDAP Vaccination: Yes Immunization Up to Date: Yes - Suicide/Smoking/Psychosocial Hx Smoking Status: No Smoking History: Never smoked Have you smoked in the past 12 months: No Number of Cigarettes Smoked Daily: 0 If you are a former smoker, when did you quit?: 0 Cigars Per Day: 0 Information on smoking cessation initiated: No 'Breaking Loose' booklet given: 09/22/17 Hx Alcohol Use: No Drug/Substance Use Hx: No Substance Use Type: Alcohol Hx Substance Use Treatment: Yes ([facility] 04/05/18 to 04/08/18) Review of Systems - Review of Systems Comments:: Constitutional: no fever, no chills HEENT: no throat pain, no dysphagia Cardiovascular: no chest pain, no palpitations Respiratory: no cough, no shortness of breath Gastrointestinal: no abdominal pain, no nausea Genitourinary: no dysuria, no frequency Musculoskeletal: no myalgia, +back pain Skin: no rash, no itching Neurologic: no headache, no dizziness *Physical Exam - Vital Signs Last Vital Signs Temp Pulse Resp BP Pulse Ox 98 F 78 16 170/85 100 08/01/18 14:15 08/01/18 14:15 08/01/18 14:15 08/01/18 14:15 08/01/18 14:15 - Physical Exam Comments: General: Awake, alert, and fully oriented, disheveled Head: No signs of trauma Eyes: EOMI, sclera anicteric ENT: Moist mucus membranes Neck: Normal ROM, supple Lungs: Lungs clear, Normal breath sounds Cardio: Regular rhythm, S1 and S2 present Abdomen: Soft, nontender. No guarding, no rebound, no masses Extremities: Normal range of motion, Distal pulses present SKIN: Warm, Dry, normal turgor well-healing L. foot wound 1cm in diameter present on dorsum Neurologic: Cranial nerves II through XII grossly intact. Normal speech Moderate Sedation - Procedure Monitoring Vital Signs: Procedure Monitoring Vital Signs Temperature 98 F 08/01/18 14:15 Pulse Rate 78 08/01/18 14:15 Respiratory Rate 16 08/01/18 14:15 Blood Pressure 170/85 08/01/18 14:15 O2 Sat by Pulse Oximetry (%) 100 08/01/18 14:15 Medical Decision Making - Medical Decision Making 63yo M with PMH of HTN, mesothelioma, chronic ETOH abuse presenting with left foot wound. L foot wound looks well healing Bacitracin Plan to discharge 08/01/18 16:26 *DC/Admit/Observation/Transfer Diagnosis at time of Disposition: Ulcer of left foot - Discharge Dispostion Disposition: HOME Condition at time of disposition: Stable - Referrals - Patient Instructions Printed Discharge Instructions: DI for Alcohol Abuse Additional Instructions: You came to the ED for your left foot wound. We examined you and the wound appeared to be well-healing. Bacitracin was placed on the wound. Apply antibiotic ointment to the wound twice daily. You can use [id number] neosporin, bacitracin, or mupirocin. Medical attention is required if you have: fever or chills; accumulation of pus, pain or redness, red streaks, swelling in the area of your wound, seizures, have thoughts of hurting yourself or others, or with any new or worsening symptoms. If you think you are having an emergency , call for emergency medical services or present to the emergency department right away - Post Discharge Activity
[2018-08-01] MEDS ORDERED: BACITRACIN 15 GM TUBE TOPICAL OINTMENT TP ONE (16:20)
--- NOTE | 2018-08-01 16:55 | PDOC ---
Attending Attestation - Resident Resident Name: Fabiana Munguia - ED Attending Attestation I have performed the following: I have examined & evaluated the patient, The case was reviewed & discussed with the resident, I agree w/resident's findings & plan, Exceptions are as noted - HPI HPI: 08/01/18 16:55 Reviewed HPI - Physicial Exam PE: 08/01/18 16:55 Reviewed PE - Medical Decision Making 08/01/18 16:58 Well-known to ED staff was just discharged after thorough evaluation few hours ago requesting food and to have a wound check no evidence of infection Patient with no evidence of clinical intoxication able to ambulate with steady gait, clear speech no sustained nystagmus Offered the patient detox not interested at this time patient has thorough knowledge of local shelters Findings, the need for follow-up and strict return instructions discussed with patient. 08/01/18 22:42
== END 2018-08-01 18:46 | disposition home or self-care (01) ==
LOC: JER 14:12
DX: L97.528 Non-pressure chronic ulcer of other part of left foot with other specified severity (principal); F10.20 Alcohol dependence, uncomplicated; I10 Essential (primary) hypertension; C45.9 Mesothelioma, unspecified; Z59.0 Homelessness
CPT/HCPCS: 99281-25

== ENCOUNTER 2018-08-04 13:50 | Emergency (ER) | payer OTHER ==
[2018-08-04 14:31] VITALS: BP 105/61; PULSE 100; TEMP 98.2; BMI 35.9
--- NOTE | 2018-08-04 16:13 | PDOC ---
History of Present Illness - General Chief Complaint: Alcohol intoxication Stated Complaint: SOB Time Seen by Provider: 08/04/18 16:12 History Source: Patient Exam Limitations: Intoxication - History of Present Illness Initial Comments: 08/04/18 16:13 63 year old male well known to the Emergency Department with PMH HTN, ETOH abuse , mesothemiloma, chronic low back pain BIBA to ED for intoxication and left low back pain. Pt reported back pain similar to pain he has had before, for which [employer] usually works. Pt denied other complaints. Pt admitted to ETOH use today. Past History - Past Medical History Allergies/Adverse Reactions: Allergies Allergy/AdvReac Type Severity Reaction Status Date / Time Fish Containing Products Allergy Mild Swelling Verified 08/04/18 14:29 No Known Drug Allergies Allergy Verified 08/04/18 14:29 Home Medications: Ambulatory Orders Ferrous Sulfate [Feosol] 325 mg PO TIDCM #90 tab 07/30/18 Lisinopril [Prinivil] 10 mg PO DAILY #30 tablet 07/30/18 Potassium Chloride [K-Dur -] 20 meq PO BID@1000,1800 #10 tablet.er 07/30/18 Ranitidine [Zantac -] 150 mg PO BID #60 tablet 07/30/18 Anemia: No Asthma: No Cancer: Yes (mesothelioma lung cancer) Cardiac Disorders: No CVA: No COPD: No CHF: No DVT: No Dementia: No Diabetes: No GI Disorders: No Disorders: No HTN: Yes (non compliance) Hypercholesterolemia: No Kidney Stones: No Liver Disease: No Psychiatric Problems: Yes (etoh) Seizures: No Thyroid Disease: No - Surgical History Abdominal Surgery: No Appendectomy: No Cardiac Surgery: No Cholecystectomy: No Lung Surgery: No Neurologic Surgery: No Orthopedic Surgery: No - Family Disease History Family Disease History: CA: Mother - Reproductive History Testicular Surgery: No - Immunization History TDAP Vaccination: Yes Immunization Up to Date: Yes - Suicide/Smoking/Psychosocial Hx Smoking Status: No Smoking History: Never smoked Have you smoked in the past 12 months: No Number of Cigarettes Smoked Daily: 0 If you are a former smoker, when did you quit?: 0 Cigars Per Day: 0 'Breaking Loose' booklet given: 09/22/17 Hx Alcohol Use: Yes (daily) Drug/Substance Use Hx: No Substance Use Type: Alcohol Hx Substance Use Treatment: Yes ([facility] 04/05/18 to 04/08/18) Review of Systems - Review of Systems Comments:: 08/04/18 16:14 General: denied fever, chills, night sweats, generalized weakness. HEENT: denied sore throat, rhinorrhea, ear pain. Heart: denied chest pain, palpitations, syncope, diaphoresis. Respiratory: denied shortness of breath, cough, sputum production, hemoptysis. Abdomen: denied abdominal pain, nausea, vomiting, diarrhea, constipation, blood in stool. : denied dysuria, increased urinary frequency, hematuria, urinary incontinence , flank pain. Back: denied back pain. Musculoskeletal: denied joint pain, muscle pain, joint swelling. Neurological: denied headache, dizziness, numbness, tingling, weakness. Skin: denied rash, laceration, abrasion. *Physical Exam - Vital Signs Last Vital Signs Temp Pulse Resp BP Pulse Ox 98.2 F 100 H 18 105/61 96 08/04/18 14:10 08/04/18 14:10 08/04/18 14:10 08/04/18 14:10 08/04/18 14:10 - Physical Exam Comments: 08/04/18 16:14 Constitutional: Well-nourished, Well-developed, appearing stated age. HEENT: head is normocephalic, atraumatic. EOMI. PERRLA. Neck: supple. Full ROM. Heart: regular rhythm. no murmurs, rubs or gallops. Lungs: clear to auscultation bilaterally. no crackles, rhonchi or wheezing. no stridor. Back: tenderness to palpation of left low back. Abdomen: soft, nontender. normal bowel sounds. no rebound, guarding, masses. Extremities: Peripheral pulses intact. No lower extremity edema. Neurological: CN 2-12 grossly intact. Moves all four extremities. Psych: awake, alert, orientedx3. Follows commands. does not appear intoxicated. Moderate Sedation - Procedure Monitoring Vital Signs: Procedure Monitoring Vital Signs Temperature 98.2 F 08/04/18 14:10 Pulse Rate 100 H 08/04/18 14:10 Respiratory Rate 18 08/04/18 14:10 Blood Pressure 105/61 08/04/18 14:10 O2 Sat by Pulse Oximetry (%) 96 08/04/18 14:10 Medical Decision Making - Medical Decision Making 08/04/18 16:18 63 year old male with above PMH BIBA to ED for left low back pain and intoxication. Initial Vital Signs Temp Pulse Resp BP Pulse Ox 98.2 F 100 H 18 105/61 96 08/04/18 14:10 08/04/18 14:10 08/04/18 14:10 08/04/18 14:10 08/04/18 14:10 Afebrile. Borderline tachycardia. No tachypnea. Mild hypotension. No hypoxia on room air. Imaging ordered: none Labs ordered: none Medications ordered: robaxin 08/04/18 16:53 Pt alert and oriented x3. Reported pain improved. Wants to go home. no intoxication. Pt ambulating well without assistance. Pt discharged. *DC/Admit/Observation/Transfer Diagnosis at time of Disposition: Back pain, Intoxication - Discharge Dispostion Disposition: HOME Condition at time of disposition: Improved Decision to Admit order: No - Referrals - Patient Instructions Additional Instructions: Follow up with your primary care doctor in 1-2 days. - Post Discharge Activity
[2018-08-04] MEDS ORDERED: METHOCARBAMOL 750 MG TABLET PO ONE (16:20)
--- NOTE | 2018-08-04 17:09 | PDOC ---
Attending Attestation - Resident Resident Name: KikaArlinea - ED Attending Attestation I have performed the following: I have examined & evaluated the patient, The case was reviewed & discussed with the resident, I agree w/resident's findings & plan, Exceptions are as noted - HPI HPI: 08/04/18 17:25 63 M well known to this ER, with h/o HTN, mesothelioma, alcohol abuse, presenting with ETOH intoxication. Pt denies any complaints at time of my interview. - Physicial Exam PE: 08/04/18 17:26 "GENERAL: Awake, alert, and fully oriented, in no acute distress. HEAD: No signs of trauma EYES: PERRLA, EOMI, sclera anicteric, conjunctiva clear ENT: Auricles normal inspection, hearing grossly normal, nares patent, oropharynx clear without exudates. Moist mucosa NECK: Nontender, no stepoffs, Normal ROM, supple, no lymphadenopathy, JVD, or masses LUNGS: Breath sounds equal, clear to auscultation bilaterally. No wheezes, and no crackles HEART: Regular rate and rhythm, normal S1 and S2, no murmurs, rubs or gallops ABDOMEN: Soft, nontender, normoactive bowel sounds. No guarding, no rebound. No masses EXTREMITIES: Normal range of motion, no edema. No clubbing or cyanosis. No cords, erythema, or tenderness NEUROLOGICAL: Cranial nerves II through XII intact. 5/5 strength and sensation in all extremities, Normal speech, normal gait, normal cerebellar function SKIN: Warm, Dry, normal turgor, no rashes or lesions noted. - Medical Decision Making 08/04/18 17:26 63 M presenting with ETOH intoxication. Clinically sober at time of my eval. STable for DC.
== END 2018-08-04 18:41 | disposition home or self-care (01) ==
LOC: JER 13:50
DX: F10.120 Alcohol abuse with intoxication, uncomplicated (principal); M54.5 Low back pain; I10 Essential (primary) hypertension; G89.29 Other chronic pain; C45.9 Mesothelioma, unspecified
CPT/HCPCS: 99281-25

== ENCOUNTER 2018-08-05 20:14 | Emergency (ER) | payer OTHER ==
[2018-08-05 20:55] VITALS: BMI 37.3
--- NOTE | 2018-08-05 21:22 | PDOC ---
History of Present Illness - General Chief Complaint: Alcohol intoxication Stated Complaint: INTOXICATION Time Seen by Provider: 08/05/18 21:22 - History of Present Illness Initial Comments: 63 year old for male with PMH of HTN, mesothelioma, and chronic EtoH abuse with multiple episodes of acute intoxication in our ED presenting acutely intoxicated. He has no pains or complaints. Denies drinking today but he is clearly intoxicated and has alcohol on his breath. Denies wanting to go to rehab today or detox today. 08/06/18 00:32 Past History - Past Medical History Allergies/Adverse Reactions: Allergies Allergy/AdvReac Type Severity Reaction Status Date / Time Fish Containing Products Allergy Mild Swelling Verified 08/05/18 20:55 No Known Drug Allergies Allergy Verified 08/05/18 20:55 Home Medications: Ambulatory Orders Ferrous Sulfate [Feosol] 325 mg PO TIDCM #90 tab 07/30/18 Lisinopril [Prinivil] 10 mg PO DAILY #30 tablet 07/30/18 Potassium Chloride [K-Dur -] 20 meq PO BID@1000,1800 #10 tablet.er 07/30/18 Ranitidine [Zantac -] 150 mg PO BID #60 tablet 07/30/18 Anemia: No Asthma: No Cancer: Yes (mesothelioma lung cancer) Cardiac Disorders: No CVA: No COPD: No CHF: No DVT: No Dementia: No Diabetes: No GI Disorders: No Disorders: No HTN: Yes (non compliance) Hypercholesterolemia: No Kidney Stones: No Liver Disease: No Psychiatric Problems: Yes (etoh) Seizures: No Thyroid Disease: No - Surgical History Abdominal Surgery: No Appendectomy: No Cardiac Surgery: No Cholecystectomy: No Lung Surgery: No Neurologic Surgery: No Orthopedic Surgery: No - Family Disease History Family Disease History: CA: Mother - Reproductive History Testicular Surgery: No - Immunization History TDAP Vaccination: Yes Immunization Up to Date: Yes - Suicide/Smoking/Psychosocial Hx Smoking Status: No Smoking History: Never smoked Have you smoked in the past 12 months: No Number of Cigarettes Smoked Daily: 0 If you are a former smoker, when did you quit?: 0 Cigars Per Day: 0 Information on smoking cessation initiated: No 'Breaking Loose' booklet given: 09/22/17 Hx Alcohol Use: No Drug/Substance Use Hx: No Substance Use Type: Alcohol Hx Substance Use Treatment: Yes ([facility] 04/05/18 to 04/08/18) Review of Systems - Review of Systems Constitutional: No: Chills, Diaphoresis, Fever HEENTM: No: Blurred Vision, Tearing Respiratory: No: Cough, Orthopnea, Shortness of Breath Cardiac (ROS): No: Chest Pain, Irregular Heart Rate, Lightheadedness, Palpitations ABD/GI: No: Diarrhea, Nausea, Vomiting : No: Burning, Dysuria, Discharge, Flank Pain, Hematuria Musculoskeletal: No: Back Pain, Joint Pain Integumentary: No: Bruising, Erythema, Flushing, Lesions Neurological: No: Headache, Numbness Psychiatric: Yes: Depression. No: Anxiety *Physical Exam - Vital Signs Last Vital Signs Temp Pulse Resp BP Pulse Ox 98.0 F 75 16 96/54 L 100 08/05/18 20:52 08/05/18 20:52 08/05/18 20:52 08/05/18 20:52 08/05/18 20:52 - Physical Exam General Appearance: Yes: Nourished, Appropriately Dressed, Alcohol on Breath, Intoxicated. No: Apparent Distress HEENT: positive: EOMI, DOUGLAS, Normal ENT Inspection, Normal Voice Neck: positive: Trachea midline, Normal Thyroid, Supple. negative: Tender, Rigid Respiratory/Chest: negative: Chest Tender, Lungs Clear, Normal Breath Sounds ( bilateral lower lung field crackles), Respiratory Distress, Accessory Muscle Use Cardiovascular: positive: Regular Rhythm, Regular Rate Gastrointestinal/Abdominal: positive: Normal Bowel Sounds, Flat, Soft. negative : Tender Musculoskeletal: positive: Normal Inspection. negative: Decreased Range of Motion Extremity: positive: Normal Capillary Refill, Normal Inspection, Normal Range of Motion. negative: Tender Integumentary: positive: Normal Color, Dry, Warm Neurologic: positive: Alert, Normal Mood/Affect, Normal Response, Motor Strength 5/5. negative: Fully Oriented Moderate Sedation - Procedure Monitoring Vital Signs: Procedure Monitoring Vital Signs Temperature 98.0 F 08/05/18 20:52 Pulse Rate 75 08/05/18 20:52 Respiratory Rate 16 08/05/18 20:52 Blood Pressure 96/54 L 08/05/18 20:52 O2 Sat by Pulse Oximetry (%) 100 08/05/18 20:52 Medical Decision Making - Medical Decision Making 63 year old intoxicated male with no complaints stating that he wants a sandwich and to sleep. He was assessed a few times for sobriety and eventually was sober by discharge. 08/06/18 06:05 *DC/Admit/Observation/Transfer Diagnosis at time of Disposition: Alcohol intoxication Qualifiers: Complication of substance-induced condition: uncomplicated Qualified Code(s): F10.920 - Alcohol use, unspecified with intoxication, uncomplicated - Discharge Dispostion Disposition: HOME Condition at time of disposition: Improved Decision to Admit order: No - Referrals - Patient Instructions Printed Discharge Instructions: DI for Alcohol Abuse Additional Instructions: Please stop drinking and please stay hydrated. We are here if you need us. - Post Discharge Activity
--- NOTE | 2018-08-05 22:00 | PDOC ---
Attending Attestation - Resident Resident Name: Ronald Rizzo - ED Attending Attestation I have performed the following: I have examined & evaluated the patient, The case was reviewed & discussed with the resident, I agree w/resident's findings & plan, Exceptions are as noted - HPI HPI: 08/05/18 21:59 The patient is a 63-year-old male, with a past medical history of HTN, mesothelioma, alcohol abuse, who presents to the ED with ETOH intoxication. Pt denies any falls or injuries. He denies any recent fevers, chills, headache or dizziness. He denies any recent nausea, vomit, diarrhea or constipation. He denies any recent chest pain or shortness of breath. He denies any recent dysuria, frequency, urgency or hematuria. Allergies: fish containing products. Past Social History: None reported. Past Surgical History: None reported. - Physicial Exam PE: 08/05/18 22:00 "GENERAL: Awake, alert, and fully oriented, in no acute distress. HEAD: No signs of trauma EYES: PERRLA, EOMI, sclera anicteric, conjunctiva clear ENT: Auricles normal inspection, hearing grossly normal, nares patent, oropharynx clear without exudates. Moist mucosa NECK: Nontender, no stepoffs, Normal ROM, supple, no lymphadenopathy, JVD, or masses LUNGS: Breath sounds equal, clear to auscultation bilaterally. No wheezes, and no crackles HEART: Regular rate and rhythm, normal S1 and S2, no murmurs, rubs or gallops ABDOMEN: Soft, nontender, normoactive bowel sounds. No guarding, no rebound. No masses EXTREMITIES: Normal range of motion, no edema. No clubbing or cyanosis. No cords, erythema, or tenderness NEUROLOGICAL: Cranial nerves II through XII intact. 5/5 strength and sensation in all extremities, Normal speech, normal gait, normal cerebellar function SKIN: Warm, Dry, normal turgor, no rashes or lesions noted. - Medical Decision Making 08/05/18 22:00 63 M with ETOH intoxication. - Observe until sober Pt signed out to overnight attending at 2AM
[2018-08-06 06:57] VITALS: BP 104/66; PULSE 71; TEMP 98.3
== END 2018-08-06 06:41 | disposition home or self-care (01) ==
LOC: JER 20:14
DX: F10.220 Alcohol dependence with intoxication, uncomplicated (principal); I10 Essential (primary) hypertension; C45.9 Mesothelioma, unspecified; Z59.0 Homelessness
CPT/HCPCS: 99282-25

== ENCOUNTER 2018-08-06 14:35 | Emergency (ER) | payer OTHER ==
[2018-08-06 14:52] VITALS: BP 121/63; PULSE 89; BMI 30.1
--- NOTE | 2018-08-06 14:53 | PDOC ---
Rapid Medical Evaluation Time Seen by Provider: 08/06/18 14:49 Medical Evaluation: Allergies Allergy/AdvReac Type Severity Reaction Status Date / Time Fish Containing Products Allergy Mild Swelling Verified 08/05/18 20:55 No Known Drug Allergies Allergy Verified 08/05/18 20:55 08/06/18 14:51 I have performed a brief in-person evaluation of this patient. The patient presents with a chief complaint of: Pt was just discharged ~2 hrs ago from [facility], now returns for unclear reasons. Pt unable to give any hx here, possibly intoxicated. Well known to ED staff w/ h/o ETOH abuse, undomiciled, HTN , mesothelioma. Pertinent physical exam findings:stable I have ordered the following:nothing The patient will proceed to the ED for further evaluation. Discharge Disposition - Diagnosis Intoxication - Referrals - Patient Instructions - Post Discharge Activity
== END 2018-08-06 20:46 | disposition left against medical advice (07) ==
LOC: JER 14:35
DX: Z53.21 Procedure and treatment not carried out due to patient leaving prior to being seen by health care provider (principal)
CPT/HCPCS: 99281-25

== ENCOUNTER 2018-08-08 21:27 | Emergency (ER) | payer OTHER ==
[2018-08-08 21:33] VITALS: BP 134/78; PULSE 78; TEMP 98.1; BMI 25.8
--- NOTE | 2018-08-08 22:32 | PDOC ---
Attending Attestation - Resident Resident Name: Milind Mosher - ED Attending Attestation I have performed the following: I have examined & evaluated the patient, The case was reviewed & discussed with the resident, I agree w/resident's findings & plan - HPI HPI: 08/08/18 23:52 Pt comes with alcohol intox and complaint of low back pain. - Physicial Exam PE: 08/08/18 23:53 Agree with resident exam - Medical Decision Making 08/08/18 23:53 Pt will be treated with antiinflammatory meds.
--- NOTE | 2018-08-08 22:59 | PDOC ---
History of Present Illness - General Chief Complaint: Alcohol intoxication Stated Complaint: DETOX Time Seen by Provider: 08/08/18 22:31 - History of Present Illness Initial Comments: 08/08/18 22:33 63 yo M with h/o HTN, Mesothelioma, Etoh dependence, who p/w Etoh intoxication , and mid back pain. Patient reports dull mid back pain, with absent urinary incontinence, urinary retention, perianal skin change,weakness, sensory change. Back pain onset following intercourse today. Patient was able to ambulate without difficulty following intercourse. Unable to characterize back pain. No identifiable triggers or alleviators. Patient denies Etoh today. Does not recall last alcoholic beverage. Patient denies N/V, F,C, CP, SOB, urinary complaints, abdominal pain, diarrhea, constipation, lightheadedness, weakness, sensory changes. PMHx: as noted above ROS: as noted Allergies: NKDA Past History - Past Medical History Allergies/Adverse Reactions: Allergies Allergy/AdvReac Type Severity Reaction Status Date / Time Fish Containing Products Allergy Mild Swelling Verified 08/05/18 20:55 No Known Drug Allergies Allergy Verified 08/05/18 20:55 Home Medications: Ambulatory Orders Ferrous Sulfate [Feosol] 325 mg PO TIDCM #90 tab 07/30/18 Lisinopril [Prinivil] 10 mg PO DAILY #30 tablet 07/30/18 Potassium Chloride [K-Dur -] 20 meq PO BID@1000,1800 #10 tablet.er 07/30/18 Ranitidine [Zantac -] 150 mg PO BID #60 tablet 07/30/18 Anemia: No Asthma: No Cancer: Yes (mesothelioma lung cancer) Cardiac Disorders: No CVA: No COPD: No CHF: No DVT: No Dementia: No Diabetes: No GI Disorders: No Disorders: No HTN: Yes (non compliance) Hypercholesterolemia: No Kidney Stones: No Liver Disease: No Psychiatric Problems: Yes (etoh) Seizures: No Thyroid Disease: No - Surgical History Abdominal Surgery: No Appendectomy: No Cardiac Surgery: No Cholecystectomy: No Lung Surgery: No Neurologic Surgery: No Orthopedic Surgery: No - Family Disease History Family Disease History: CA: Mother - Reproductive History Testicular Surgery: No - Immunization History TDAP Vaccination: Yes Immunization Up to Date: Yes - Suicide/Smoking/Psychosocial Hx Smoking Status: No Smoking History: Former smoker Have you smoked in the past 12 months: No Number of Cigarettes Smoked Daily: 0 If you are a former smoker, when did you quit?: 0 Cigars Per Day: 0 Information on smoking cessation initiated: No 'Breaking Loose' booklet given: 09/22/17 Hx Alcohol Use: Yes Drug/Substance Use Hx: No Substance Use Type: Alcohol Hx Substance Use Treatment: Yes ([facility] 04/05/18 to 04/08/18) Review of Systems - Review of Systems Comments:: 08/08/18 22:35 GENERAL/CONSTITUTIONAL: No fever or chills. No weakness. HEAD, EYES, EARS, NOSE AND THROAT: No change in vision. No ear pain or discharge. No sore throat. CARDIOVASCULAR: No chest pain or shortness of breath RESPIRATORY: No cough, wheezing, or hemoptysis. GASTROINTESTINAL: No nausea, vomiting, diarrhea or constipation. GENITOURINARY: No dysuria, frequency, or change in urination. MUSCULOSKELETAL: + Mid back pain. No joint or muscle swelling or pain. No neck pain. SKIN: No rash NEUROLOGIC: No headache, vertigo, loss of consciousness, or change in strength/ sensation. ENDOCRINE: No increased thirst. No abnormal weight change HEMATOLOGIC/LYMPHATIC: No anemia, easy bleeding, or history of blood clots. ALLERGIC/IMMUNOLOGIC: No hives or skin allergy. *Physical Exam - Vital Signs Last Vital Signs Temp Pulse Resp BP Pulse Ox 98.1 F 78 20 134/78 97 08/08/18 21:30 08/08/18 21:30 08/08/18 21:30 08/08/18 21:30 08/08/18 21:30 - Physical Exam Comments: 08/08/18 22:35 GENERAL: Awake, alert, and fully oriented, in no acute distress. + Speech slurred. HEAD: No signs of trauma, normocephalic, atraumatic EYES: PERRLA, EOMI, sclera anicteric, conjunctiva clear ENT: Hearing grossly normal, nares patent, oropharynx clear without exudates. Moist mucosa NECK: Normal ROM, supple, no lymphadenopathy, JVD, or masses LUNGS: No distress, speaks full sentences, clear to auscultation bilaterally HEART: Regular rate and rhythm, normal S1 and S2, no murmurs, rubs or gallops, peripheral pulses normal and equal bilaterally. ABDOMEN: Soft, nontender, normoactive bowel sounds. No guarding, no rebound. No masses EXTREMITIES : Normal inspection, Normal range of motion, no edema. No clubbing or cyanosis. NEUROLOGICAL: Cranial nerves II through XII grossly intact. Normal gait, no focal sensorimotor deficits BACK : Neg paraspinal or spinal ttp. Neg bony deformity, stepoff, skin change. SKIN: Warm, Dry, normal turgor, no rashes or lesions noted Moderate Sedation - Procedure Monitoring Vital Signs: Procedure Monitoring Vital Signs Temperature 98.1 F 08/08/18 21:30 Pulse Rate 78 08/08/18 21:30 Respiratory Rate 20 08/08/18 21:30 Blood Pressure 134/78 08/08/18 21:30 O2 Sat by Pulse Oximetry (%) 97 08/08/18 21:30 Medical Decision Making - Medical Decision Making 08/08/18 22:36 63 yo M with h/o HTN, Mesothelioma, Etoh dependence, who p/w Etoh intoxication , and mid back pain. Vtials wnl, AF, A&O. Physical exam unremarkable. Reports mid-back pain, with absent alarm findings. Denies SI, HI, hallucinations. No evidence Etoh withdrawal, DT. Patient pending sobriety. Denies urinary incontinence, urinary retention, perianal skin change,weakness, sensory change, N/V, F,C, CP, SOB, urinary complaints, abdominal pain, diarrhea, constipation, lightheadedness, weakness, sensory changes. ED Course: 08/08/18 23:19 Toradol 30 mg IM 08/09/18 06:56 Patient with continued somnolence, slurred speech, ataxic gait. Pending sobriety. Patient endorsed to day team. *DC/Admit/Observation/Transfer Diagnosis at time of Disposition: Alcohol intoxication Qualifiers: Complication of substance-induced condition: uncomplicated Qualified Code(s): F10.920 - Alcohol use, unspecified with intoxication, uncomplicated - Discharge Dispostion Condition at time of disposition: Stable Decision to Admit order: No - Referrals - Patient Instructions Printed Discharge Instructions: DI for Alcohol Abuse - Post Discharge Activity
[2018-08-08] MEDS ORDERED: KETOROLAC TROMETHAMINE 30 MG/1 ML VIAL IM ONE (23:55)
[2018-08-09] MEDS ORDERED: SODIUM CHLORIDE 1,000 ML IV STA (08:01)
[2018-08-09] MEDS ORDERED: ACETAMINOPHEN 1000 MG/100 ML VIAL (NON FORMULARY) IVPB ONE (08:01)
[2018-08-09] MEDS ORDERED: FAMOTIDINE 20 MG/50 ML IVPB 20 MG/50 ML MG IVPB ONE ×2 (08:01→08:27)
[2018-08-09] MEDS ORDERED: ONDANSETRON 4 MG/2 ML VIAL IVPUSH ONE (08:01)
--- NOTE | 2018-08-09 08:50 | PDOC ---
*Physical Exam - Vital Signs Last Vital Signs Temp Pulse Resp BP Pulse Ox 98.1 F 78 20 134/78 97 08/08/18 21:30 08/08/18 21:30 08/08/18 21:30 08/08/18 21:30 08/08/18 21:30 ED Treatment Course - LABORATORY CBC & Chemistry Diagram: 08/09/18 09:10 08/09/18 09:10 - RADIOLOGY Radiology Studies Ordered: Category Date Time Status ABDOMEN & PELVIS CT WITH CONTR [CT] Stat CT Scan 08/09/18 08:01 Ordered - Medications Given in the ED: ED Medications Discontinued Medications Generic Name Dose Route Start Last Admin Trade Name Francisco Javier PRN Reason Stop Dose Admin Ketorolac Tromethamine 30 mg 08/08/18 23:55 08/09/18 00:35 Toradol Injection - IM 08/08/18 23:56 30 mg ONCE ONE Administration Medical Decision Making - Medical Decision Making 08/09/18 08:45 Patient is a 63M, well known to this ED, signed out to me by Dr Mosher pending sobriety. On reassessment, patient states that he has RLQ abdominal pain. He's unsure when this started and states that he can't remember how he got here. He states that he does not want to eat and does not feel well. Endorses nausea and chills, denies fevers and vomiting. Denies constipation and diarrhea. Patient has vomitus on leg and and shirt, is disheveled. Patient is usually quick to leave in morning, but states that he feels unwell today and can't leave. ROS: GENERAL/CONSTITUTIONAL: No fever +chills. No weakness. HEAD, EYES, EARS, NOSE AND THROAT: No change in vision. No sore throat. CARDIOVASCULAR: No chest pain or shortness of breath RESPIRATORY: No cough, wheezing, or hemoptysis. GASTROINTESTINAL: +nausea, no vomiting, diarrhea or constipation. GENITOURINARY: No dysuria, frequency, or change in urination. MUSCULOSKELETAL: No joint or muscle swelling or pain. No neck or back pain. SKIN: No rash NEUROLOGIC: No headache, vertigo, loss of consciousness, or change in strength/ sensation. ALLERGIC/IMMUNOLOGIC: No hives or skin allergy. PE: GENERAL: Awake, alert, and fully oriented, in no acute distress HEAD: No signs of trauma, normocephalic, atraumatic EYES: PERRLA, EOMI, sclera anicteric, conjunctiva clear ENT: Auricles normal inspection, hearing grossly normal, nares patent, oropharynx clear without exudates. Moist mucosa NECK: Normal ROM, supple, no lymphadenopathy, JVD, or masses LUNGS: No distress, speaks full sentences, clear to auscultation bilaterally HEART: Regular rate and rhythm, normal S1 and S2, no murmurs, rubs or gallops, peripheral pulses normal and equal bilaterally. ABDOMEN: Soft, +rlq abdominal pain, normoactive bowel sounds. No guarding, no rebound. No masses EXTREMITIES: Normal inspection, Normal range of motion, no edema. No clubbing or cyanosis. NEUROLOGICAL: Cranial nerves II through XII grossly intact. Normal speech, no focal sensorimotor deficits SKIN: Warm, Dry, normal turgor, no rashes or lesions noted. Abdominal labs and ct a/p ordered. DDx includes, but is not limited to: appendicitis, uti, gastroenteritis. 08/09/18 13:24 Patient eloped. *DC/Admit/Observation/Transfer Diagnosis at time of Disposition: Alcohol intoxication Qualifiers: Complication of substance-induced condition: uncomplicated Qualified Code(s): F10.920 - Alcohol use, unspecified with intoxication, uncomplicated - Discharge Dispostion Disposition: ELOPED Condition at time of disposition: Stable - Referrals - Patient Instructions Printed Discharge Instructions: DI for Alcohol Abuse - Post Discharge Activity
[2018-08-09 09:44] LABS: BASO % 1.3 % (0-2.0); HEMATOCRIT 31.2 % (35.4-49); HEMOGLOBIN 10.2 GM/dL (11.7-16.9); LYMPH % 31.8 % (8-40); MCH 25.9 pg (25.7-33.7); MCHC 32.6 g/dl (32.0-35.9); MEAN CELL VOLUME 79.2 fl (80-96); MEAN PLT VOLUME 7.6 fl (7.5-11.1); MONO % 6.2 % (3.8-10.2); NEUT % 54.7 % (42.8-82.8); PLATELET COUNT 286 K/MM3 (134-434); RBC 3.94 M/mm3 (4.00-5.60); RDW 23.4 % (11.9-15.9); WHITE BLOOD COUNT 4.4 K/mm3 (4.0-10.0)
[2018-08-09 10:20] LABS: ALK PHOS 258 U/L (45-117); ANION GAP 11 MMOL/L (8-16); BILIRUBIN,TOTAL 0.8 mg/dL (0.2-1); BLOOD UREA NITROGEN 6 mg/dL (7-18); CALCIUM 8.4 mg/dL (8.5-10.1); CHLORIDE 106 mmol/L (98-107); CO2 28 mmol/L (21-32); CREATININE 0.6 mg/dL (0.55-1.3); GLUCOSE,RANDOM 77 mg/dL (74-106); LIPASE 76 U/L (73-393); POTASSIUM 3.1 mmol/L (3.5-5.1); SGOT/AST 32 U/L (15-37); SGPT/ALT 39 U/L (13-61); SODIUM 146 mmol/L (136-145); TOT PROT 6.4 g/dl (6.4-8.2)
[2018-08-09 13:34] LABS: ANISOCYTOSIS 1+; MACROCYTOSIS 0; PLATELET ESTIMATE NORMAL; TARGET CELLS 1+
== END 2018-08-09 07:30 | disposition left against medical advice (07) ==
LOC: JER 21:27
DX: F10.220 Alcohol dependence with intoxication, uncomplicated (principal); I10 Essential (primary) hypertension; Z87.09 Personal history of other diseases of the respiratory system; Z59.0 Homelessness
CPT/HCPCS: 36415; 80053; 82550; 82553; 83690; 84484; 85025; 99282-25

== ENCOUNTER 2018-08-13 18:47 | Emergency (ER) | payer OTHER ==
--- NOTE | 2018-08-13 20:17 | PDOC ---
History of Present Illness - General Chief Complaint: Alcohol intoxication Stated Complaint: BACK PAIN,INTOX Time Seen by Provider: 08/13/18 20:14 - History of Present Illness Initial Comments: 08/13/18 20:18 63 yo M with h/o HTN, Mesothelioma, Etoh dependence, who p/w Etoh intoxication. Patient reports last alcoholic beverage today this AM. No complaints. Patient denies SI, HI, tremors/convulsions, GARCIA, vision change, palpitations, cough, wheezing, orthopena, PND, leg swelling/pain, N/V, F,C, CP, SOB, urinary complaints, hematuria, BPR, abdominal pain, diarrhea, constipation, lightheadedness, weakness, sensory changes. PMHx: as noted above ROS: as noted Allergies: NKDA Past History - Past Medical History Allergies/Adverse Reactions: Allergies Allergy/AdvReac Type Severity Reaction Status Date / Time Fish Containing Products Allergy Mild Swelling Verified 08/13/18 23:20 No Known Drug Allergies Allergy Verified 08/13/18 23:20 Home Medications: Ambulatory Orders Ferrous Sulfate [Feosol] 325 mg PO TIDCM #90 tab 07/30/18 Lisinopril [Prinivil] 10 mg PO DAILY #30 tablet 07/30/18 Potassium Chloride [K-Dur -] 20 meq PO BID@1000,1800 #10 tablet.er 07/30/18 Ranitidine [Zantac -] 150 mg PO BID #60 tablet 07/30/18 Anemia: No Asthma: No Cancer: Yes (mesothelioma lung cancer) Cardiac Disorders: No CVA: No COPD: No CHF: No DVT: No Dementia: No Diabetes: No GI Disorders: No Disorders: No HTN: Yes (non compliance) Hypercholesterolemia: No Kidney Stones: No Liver Disease: No Psychiatric Problems: Yes (etoh) Seizures: No Thyroid Disease: No - Surgical History Abdominal Surgery: No Appendectomy: No Cardiac Surgery: No Cholecystectomy: No Lung Surgery: No Neurologic Surgery: No Orthopedic Surgery: No - Family Disease History Family Disease History: CA: Mother - Reproductive History Testicular Surgery: No - Immunization History TDAP Vaccination: Yes Immunization Up to Date: Yes - Suicide/Smoking/Psychosocial Hx Smoking Status: No Smoking History: Former smoker Have you smoked in the past 12 months: No Number of Cigarettes Smoked Daily: 0 If you are a former smoker, when did you quit?: 0 Cigars Per Day: 0 'Breaking Loose' booklet given: 09/22/17 Hx Alcohol Use: Yes Drug/Substance Use Hx: No Substance Use Type: Alcohol Hx Substance Use Treatment: Yes ([facility] 04/05/18 to 04/08/18) Trauma Specific PMHX - Complaint Specific PMHX Arthritis: No Back Injury: Yes (seen at this hospital for the rib fractures) Review of Systems - Review of Systems Comments:: 08/13/18 20:20 GENERAL/CONSTITUTIONAL: No fever or chills. No weakness. HEAD, EYES, EARS, NOSE AND THROAT: No change in vision. No ear pain or discharge. No sore throat. CARDIOVASCULAR: No chest pain or shortness of breath RESPIRATORY: No cough, wheezing, or hemoptysis. GASTROINTESTINAL: No nausea, vomiting, diarrhea or constipation. GENITOURINARY: No dysuria, frequency, or change in urination. MUSCULOSKELETAL: + Mid back pain. No joint or muscle swelling or pain. No neck pain. SKIN: No rash NEUROLOGIC: No headache, vertigo, loss of consciousness, or change in strength/ sensation. ENDOCRINE: No increased thirst. No abnormal weight change HEMATOLOGIC/LYMPHATIC: No anemia, easy bleeding, or history of blood clots. ALLERGIC/IMMUNOLOGIC: No hives or skin allergy. *Physical Exam - Physical Exam Comments: 08/13/18 20:19 GENERAL: Alert, and fully oriented, in no acute distress. + Speech slurred, and somnolent on exam. HEAD: No signs of trauma, normocephalic, atraumatic EYES: PERRLA, EOMI, sclera anicteric, conjunctiva clear ENT: Hearing grossly normal, nares patent, oropharynx clear without exudates. Moist mucosa NECK: Normal ROM, supple, no lymphadenopathy, JVD, or masses LUNGS: No distress, speaks full sentences, clear to auscultation bilaterally HEART: Regular rate and rhythm, normal S1 and S2, no murmurs, rubs or gallops, peripheral pulses normal and equal bilaterally. ABDOMEN: Soft, nontender, normoactive bowel sounds. No guarding, no rebound. No masses EXTREMITIES : Normal inspection, Normal range of motion, no edema. No clubbing or cyanosis. NEUROLOGICAL: Cranial nerves II through XII grossly intact. Normal gait, no focal sensorimotor deficits SKIN: Warm, Dry, normal turgor, no rashes or lesions noted Medical Decision Making - Medical Decision Making 08/13/18 20:16 63 yo M with h/o HTN, Mesothelioma, Etoh dependence, who p/w Etoh intoxication. Vtials wnl, AF, A&O. Physical exam unremarkable. No evidence Etoh withdrawal, DT. Patient pending sobriety. Denies SI, HI, hallucinations, N/V, F, C, CP, SOB, urinary complaints, abdominal pain, diarrhea, constipation, lightheadedness, weakness, sensory changes. Patient pending sobriety. ED Course: 08/14/18 06:11 Patient endorsing thirst Tolerating PO intake fluid intake Patient ambulatory in [facility] Patient A&Ox3 08/14/18 06:52 Patient now endorsing crampy lower abdominal pain. Last time in [facility] ED (08/08/17) had similiar complaint but eloped prior to labs , and CT AP Patient now pending CT AP and labs Stable Patient endorsed to day team *DC/Admit/Observation/Transfer Diagnosis at time of Disposition: Alcohol intoxication Qualifiers: Complication of substance-induced condition: uncomplicated Qualified Code(s): F10.920 - Alcohol use, unspecified with intoxication, uncomplicated - Discharge Dispostion Condition at time of disposition: Stable Decision to Admit order: No - Referrals - Patient Instructions Printed Discharge Instructions: DI for Alcohol Abuse Additional Instructions: Please return to the emergency department with any new or worsening symptoms or concerns. Please follow up with your primary care physician within 72 hours. - Post Discharge Activity - Attestations Physician Attestion: 08/13/18 20:22 I attest to the information provided in this note.
--- NOTE | 2018-08-13 20:21 | PDOC ---
Attending Attestation - HPI HPI: 08/13/18 21:04 Mr De Leon is a 63 year old male, well known to myself, with a significant past mental history of mesothelioma with long history of EtOH abuse and multiple ER visits and admission secondary to EtOH abuse, who presents to the emergency department due to alcohol withdrawal. Pt last drink was more than 12 hours ago. He also reports back pain The patient denies orthopnea, chest pain, headache, dizziness, and recent trauma. Denies fever, chills, nausea ,vomiting, and any bowel/urinary symptoms. Allergies: Fish containing products. NKDA Social History: EtOH abuse. No reported cigarette or drug abuse. - Physicial Exam PE: 08/13/18 21:04 GENERAL: The patient is disheveled HEAD: Normal with no signs of trauma. LUNGS: Coarse breath sounds HEART:Regular rate and rhythm ABDOMEN: Soft. Nontender. EXTREMITIES: Normal range of motion, no edema. . NEUROLOGICAL: Cranial nerves II through XII grossly intact. Normal speech. No focal neurological deficits. tongue fasciculations, hand tremor noted MUSCULOSKELETAL: Paraspinal tenderness to palpation <Susu Gonzales - Last Filed: 08/13/18 21:04> - Resident Resident Name: Milind Mosher - ED Attending Attestation I have performed the following: I have examined & evaluated the patient, The case was reviewed & discussed with the resident, I agree w/resident's findings & plan, Exceptions are as noted - Medical Decision Making 08/13/18 21:55 Mr De Leon is well know to this department Presents via EMS due to public intoxication Pt is somnolent and although arousable falls back asleep Pt is discheveled, malodorous Has no particular complaints at this time Will continuously assess 08/14/18 02:55 Pt re assessed He states he is thirsty He reports chronic back pain Pt given water to drink He refuses a sandwich 08/14/18 02:55 08/14/18 06:52 Pt reports lower abdominal pain Pt now states this has been present for almost 1 week Was seen here for the same several days ago and eloped prior to work up Labs ordered Non contrast CT <Sadia Cornell - Last Filed: 08/14/18 06:53> Attestations - Attestations 08/13/18 21:05 Documentation prepared by Susu Gonzales, acting as outside medical sales representative for Sadia Cornell MD. <Susu Gonzales - Last Filed: 08/13/18 21:04>
[2018-08-13 23:20] VITALS: TEMP 97; BMI 38.0
[2018-08-14 10:20] LABS: URINE APPEARANCE CLEAR; URINE BILIRUBIN NEGATIVE (<2.0 mg/dL); URINE COLOR DKYELLOW; URINE GLUCOSE (UA) NEGATIVE (NEGATIVE); URINE KETONE NEGATIVE (NEGATIVE); URINE LEUK ESTERASE NEGATIVE (NEGATIVE); URINE NITRITE NEGATIVE (NEGATIVE); URINE PROTEIN NEGATIVE (NEGATIVE)
[2018-08-14 10:33] LABS: BASO % 0.4 % (0-2.0); EOS % 1.3 % (0-4.5); HEMOGLOBIN 10.3 GM/dL (11.7-16.9); LYMPH % 20.6 % (8-40); MCH 26.9 pg (25.7-33.7); MCHC 33.1 g/dl (32.0-35.9); MEAN CELL VOLUME 81.2 fl (80-96); MEAN PLT VOLUME 7.8 fl (7.5-11.1); MONO % 6.3 % (3.8-10.2); NEUT % 71.4 % (42.8-82.8); PLATELET COUNT 252 K/MM3 (134-434); RBC 3.82 M/mm3 (4.00-5.60); RDW 26.8 % (11.9-15.9); WHITE BLOOD COUNT 7.1 K/mm3 (4.0-10.0)
[2018-08-14 11:00] LABS: ALK PHOS 222 U/L (45-117); ANION GAP 7 MMOL/L (8-16); BILIRUBIN,TOTAL 1.2 mg/dL (0.2-1); BLOOD UREA NITROGEN 12 mg/dL (7-18); CALCIUM 8.1 mg/dL (8.5-10.1); CHLORIDE 108 mmol/L (98-107); CO2 30 mmol/L (21-32); CREATININE 0.7 mg/dL (0.55-1.3); GLUCOSE,RANDOM 89 mg/dL (74-106); POTASSIUM 3.3 mmol/L (3.5-5.1); SGOT/AST 39 U/L (15-37); SGPT/ALT 24 U/L (13-61); SODIUM 145 mmol/L (136-145); TOT PROT 6.3 g/dl (6.4-8.2)
[2018-08-14 11:59] LABS: LIPASE 93 U/L (73-393)
--- NOTE | 2018-08-14 12:17 | PDOC ---
*Physical Exam - Vital Signs Last Vital Signs Temp Pulse Resp BP Pulse Ox 97.0 F L 85 24 H 145/68 100 08/13/18 23:16 08/13/18 23:16 08/13/18 23:16 08/13/18 23:16 08/13/18 23:16 ED Treatment Course - LABORATORY CBC & Chemistry Diagram: 08/14/18 09:58 08/14/18 09:58 - ADDITIONAL ORDERS Additional order review: Laboratory Results 08/14/18 08/14/18 10:02 09:58 Sodium 145 Potassium 3.3 L Chloride 108 H Carbon Dioxide 30 Anion Gap 7 L BUN 12 Creatinine 0.7 Creat Clearance w eGFR > 60 Random Glucose 89 Calcium 8.1 L Total Bilirubin 1.2 H AST 39 H ALT 24 Alkaline Phosphatase 222 H Total Protein 6.3 L Albumin 3.0 L Lipase 93 Urine Color Dkyellow Urine Appearance Clear Urine pH 6.0 D Ur Specific [place] 1.015 Urine Protein Negative Urine Glucose (UA) Negative Urine Ketones Negative Urine Blood Negative Urine Nitrite Negative Urine Bilirubin Negative Urine Urobilinogen 2.0 Ur Leukocyte Esterase Negative 08/14/18 09:58 RBC 3.82 L MCV 81.2 MCHC 33.1 RDW 26.8 H MPV 7.8 Neutrophils % 71.4 D Lymphocytes % 20.6 D Monocytes % 6.3 Eosinophils % 1.3 Basophils % 0.4 Medical Decision Making - Medical Decision Making 08/14/18 12:17 All labs, imaging, negative. ok to dc. *DC/Admit/Observation/Transfer Diagnosis at time of Disposition: Alcohol intoxication Qualifiers: Complication of substance-induced condition: uncomplicated Qualified Code(s): F10.920 - Alcohol use, unspecified with intoxication, uncomplicated - Discharge Dispostion Disposition: HOME Condition at time of disposition: Stable Decision to Admit order: No - Referrals - Patient Instructions Printed Discharge Instructions: DI for Alcohol Abuse Additional Instructions: Please return to the emergency department with any new or worsening symptoms or concerns. Please follow up with your primary care physician within 72 hours. - Post Discharge Activity
[2018-08-14 12:36] VITALS: BP 179/97; PULSE 97
[2018-08-14 13:14] LABS: ANISOCYTOSIS 2+; MACROCYTOSIS 2+; OVALOCYTE 1+; PLATELET ESTIMATE NORMAL; TEAR DROP CELLS 1+
== END 2018-08-14 13:11 | disposition home or self-care (01) ==
LOC: JER 18:47
DX: F10.220 Alcohol dependence with intoxication, uncomplicated (principal); I10 Essential (primary) hypertension; C45.9 Mesothelioma, unspecified; Z59.0 Homelessness
CPT/HCPCS: 36415; 74176-TC; 80053; 81003; 83690; 85025; 99283-25

== ENCOUNTER 2018-08-14 18:16 | Emergency (ER) | payer OTHER ==
[2018-08-14 18:32] VITALS: BP 128/102; PULSE 82; TEMP 97.4; BMI 33.0
--- NOTE | 2018-08-14 18:51 | PDOC ---
History of Present Illness - General Chief Complaint: Alcohol intoxication Stated Complaint: INTOX Time Seen by Provider: 08/14/18 18:51 - History of Present Illness Initial Comments: 08/14/18 18:54 Pt presents to the ED because "I was told [place] people [place] train station that I have to come in." patient has no complaints and denies medical evaluation at this time. He is oriented x 3 and ambulatory with a steady gait. Patient appears mildly intoxicated but still is competent to refuse medical evaluation. Will allow patient to leave. Past History - Past Medical History Allergies/Adverse Reactions: Allergies Allergy/AdvReac Type Severity Reaction Status Date / Time Fish Containing Products Allergy Mild Swelling Verified 08/14/18 18:18 No Known Drug Allergies Allergy Verified 08/14/18 18:18 Home Medications: Ambulatory Orders NK [No Known Home Medication] 08/14/18 Anemia: No Asthma: No Cancer: Yes (mesothelioma lung cancer) Cardiac Disorders: No CVA: No COPD: No CHF: No DVT: No Dementia: No Diabetes: No GI Disorders: No Disorders: No HTN: Yes (non compliance) Hypercholesterolemia: No Kidney Stones: No Liver Disease: No Psychiatric Problems: Yes (etoh) Seizures: No Thyroid Disease: No - Surgical History Abdominal Surgery: No Appendectomy: No Cardiac Surgery: No Cholecystectomy: No Lung Surgery: No Neurologic Surgery: No Orthopedic Surgery: No - Family Disease History Family Disease History: CA: Mother - Reproductive History Testicular Surgery: No - Immunization History TDAP Vaccination: Yes Immunization Up to Date: Yes - Suicide/Smoking/Psychosocial Hx Smoking Status: No Smoking History: Never smoked Have you smoked in the past 12 months: No Number of Cigarettes Smoked Daily: 0 If you are a former smoker, when did you quit?: 0 Cigars Per Day: 0 Information on smoking cessation initiated: No 'Breaking Loose' booklet given: 09/22/17 Hx Alcohol Use: No Drug/Substance Use Hx: No Substance Use Type: Alcohol Hx Substance Use Treatment: Yes ([facility] 04/05/18 to 04/08/18) *Physical Exam - Vital Signs Last Vital Signs Temp Pulse Resp BP Pulse Ox 97.4 F L 82 18 128/102 H 97 08/14/18 18:18 08/14/18 18:18 08/14/18 18:18 08/14/18 18:18 08/14/18 18:18 Moderate Sedation - Procedure Monitoring Vital Signs: Procedure Monitoring Vital Signs Temperature 97.4 F L 08/14/18 18:18 Pulse Rate 82 08/14/18 18:18 Respiratory Rate 18 08/14/18 18:18 Blood Pressure 128/102 H 08/14/18 18:18 O2 Sat by Pulse Oximetry (%) 97 08/14/18 18:18 *DC/Admit/Observation/Transfer Diagnosis at time of Disposition: Homelessness - Discharge Dispostion Disposition: ELOPED Condition at time of disposition: Good Decision to Admit order: No - Referrals - Patient Instructions - Post Discharge Activity
== END 2018-08-14 19:28 | disposition left against medical advice (07) ==
LOC: JER 18:16
DX: F10.220 Alcohol dependence with intoxication, uncomplicated (principal); I10 Essential (primary) hypertension; C45.9 Mesothelioma, unspecified; Z59.0 Homelessness
CPT/HCPCS: 99283-25

== ENCOUNTER 2018-08-15 15:23 | Emergency (ER) | payer OTHER ==
[2018-08-15 15:34] VITALS: BMI 39.4
--- NOTE | 2018-08-15 16:46 | PDOC ---
History of Present Illness - General Chief Complaint: Alcohol intoxication Stated Complaint: INTOX Time Seen by Provider: 08/15/18 16:45 History Source: EMS - History of Present Illness Initial Comments: 08/15/18 18:19 63 year old male, well known to this ER with past mental history of mesothelioma with long history of EtOH abuse and multiple ER visits and admission secondary to EtOH abuse BIB EMS for alcohol intoxication at the [facility]. no signs of trauma or injury noted. Patient slurring of speech,with alcohol on breath. Past History - Past Medical History Allergies/Adverse Reactions: Allergies Allergy/AdvReac Type Severity Reaction Status Date / Time Fish Containing Products Allergy Mild Swelling Verified 08/16/18 19:43 No Known Drug Allergies Allergy Verified 08/16/18 19:43 Home Medications: Ambulatory Orders NK [No Known Home Medication] 08/14/18 Anemia: No Asthma: No Cancer: Yes (mesothelioma lung cancer) Cardiac Disorders: No CVA: No COPD: No CHF: No DVT: No Dementia: No Diabetes: No GI Disorders: No Disorders: No HTN: Yes (non compliance) Hypercholesterolemia: No Kidney Stones: No Liver Disease: No Psychiatric Problems: Yes (etoh) Seizures: No Thyroid Disease: No - Surgical History Abdominal Surgery: No Appendectomy: No Cardiac Surgery: No Cholecystectomy: No Lung Surgery: No Neurologic Surgery: No Orthopedic Surgery: No - Family Disease History Family Disease History: CA: Mother - Reproductive History Testicular Surgery: No - Immunization History TDAP Vaccination: Yes Immunization Up to Date: Yes - Suicide/Smoking/Psychosocial Hx Smoking Status: No Smoking History: Former smoker Have you smoked in the past 12 months: No Number of Cigarettes Smoked Daily: 0 If you are a former smoker, when did you quit?: 0 Cigars Per Day: 0 Information on smoking cessation initiated: No 'Breaking Loose' booklet given: 09/22/17 Hx Alcohol Use: Yes Drug/Substance Use Hx: No Substance Use Type: Alcohol Hx Substance Use Treatment: Yes ([facility] 04/05/18 to 04/08/18) Review of Systems - Review of Systems Able to Perform ROS?: Yes Is the patient limited Bur[place]ian proficient: No HEENTM: No: Symptoms Reported, See HPI, Eye Pain, Blurred Vision, Tearing, Recent change in vision, Double Vision, Cataracts, Ear Pain, Ocular Prothesis, Ear Discharge, Nose Pain, Nose Congestion, Tinnitus, Nose Bleeding, Hearing Loss , Throat Pain, Throat Swelling, Mouth Pain, Dental Problems, Difficulty Swallowing, Mouth Swelling, Other Respiratory: No: Symptoms reported, See HPI, Cough, Orthopnea, Shortness of Breath, SOB with Exertion, SOB at Rest, Stridor, Wheezing, Productive cough, Hemoptysis, Other ABD/GI: No: Symptoms Reported, See HPI, Abdominal Distended, Abd. Pain w/ defecation, Blood Streaked Bowels, Constipated, Diarrhea, Difficulty Swallowing , Nausea, Poor Appetite, Poor Fluid Intake, Rectal Bleeding, Vomiting, Indigestion, Abdominal cramping, Tarry Stools, Other : No: Symptoms Reported, See HPI, Burning, Dysuria, Discharge, Frequency, Flank Pain, Hematuria, Incontinence, Pain, Urgency, Testicular Mass, Testicular Swelling, Lesions, Testicular Pain, Other Integumentary: No: Symptoms Reported, See HPI, Bruising, Change in Color, Change in Hair/Nails, Dryness, Erythema, Flushing, Lesions, Lumps, Pallor, Pruritus, Rash, Sweating, Other *Physical Exam - Vital Signs Last Vital Signs Temp Pulse Resp BP Pulse Ox 97.1 F L 75 20 120/75 99 08/15/18 15:32 08/15/18 15:32 08/15/18 15:32 08/15/18 15:32 08/15/18 15:32 - Physical Exam General Appearance: Yes: Disheveled, Alcohol on Breath, Intoxicated HEENT: positive: Other (normocephalic). negative: EOMI, DOUGLAS, Normal ENT Inspection, Normal Voice, Symmetrical, TMs Normal, Pharynx Normal, Pale Conjunctivae, Photophobia, Scleral Icterus (R), Scleral Icterus (L), Muffled/ Hoarse voice, Pharyngeal Erythema, Tonsillar Exudate, Tonsillar Erythema, Nasal Congestion, Rhinorrhea, Sinus Tenderness, Orbits, Hearing Decreased, Hearing Grossly Normal, TM Bulging, TM Dull, TM Erythema, Lesions, Colon, Excessive drooling, Thrush Neck: negative: Tender, Trachea midline, Normal Thyroid, Rigid, Supple, Carotid bruit, Decreased range of motion, Stridor, Lymphadenopathy (R), Lymphadenopathy (L), Rigidity, Tender lateral, Tender midline, Thyromegaly, Other Respiratory/Chest: negative: Chest Tender, Lungs Clear, Normal Breath Sounds, Respiratory Distress, Accessory Muscle Use, Labored Respiration, Rapid RR, Decreased Breath Sounds, Paradoxal Breathing, Crackles, Rales, Rhonchi, Stridor , Wheezing, Hyperresonant, Dullness, Plerual Rub, Other Cardiovascular: negative: Regular Rhythm, Regular Rate, S1, S2, Edema, JVD, Murmur, Bradycardia, Tachycardia, Diastolic Murmur, Systolic Murmur, Gallop/S3, Gallop/S4, Irregularly Irregular, Irregular, Other Musculoskeletal: negative: Normal Inspection, CVA Tenderness, CVA Tenderness (R) , CVA Tenderness (L), Decreased Range of Motion, Muscle Spasm, Vertebral Tenderness, Other Extremity: negative: Normal Capillary Refill, Normal Inspection, Normal Range of Motion, Tender, Pelvis Stable, Coldness, Cyanosis, Delayed Capillary Refill, Pedal Edema, Swelling, Calf Tenderness, Erythema, Inflammation, Other Integumentary: negative: Normal Color, Dry, Warm, Cyanotic, Erythema, Jaundice, Mottled, Pale, Cold, Clammy, Diaphoresis, Moist, Hives, Petechiae, Rash, Swelling, Ecchymosis, Bruising, Other Neurologic: positive: Alert Moderate Sedation - Procedure Monitoring Vital Signs: Procedure Monitoring Vital Signs Temperature 97.1 F L 08/15/18 15:32 Pulse Rate 75 08/15/18 15:32 Respiratory Rate 20 08/15/18 15:32 Blood Pressure 120/75 08/15/18 15:32 O2 Sat by Pulse Oximetry (%) 99 08/15/18 15:32 Medical Decision Making - Medical Decision Making 08/15/18 18:31 Alcohol abuse P: sobriety 08/16/18 05:52 vs stable patient tolerated food and water. no tremors. 08/17/18 06:30 PATIENT IS NOTED TO HAVE TREMORS,. LIBRIUM GIVEN [id number] patient signed out to [facility] for reevaluation prior to discharge. *DC/Admit/Observation/Transfer Diagnosis at time of Disposition: Alcohol intoxication Qualifiers: Complication of substance-induced condition: uncomplicated Qualified Code(s): F10.920 - Alcohol use, unspecified with intoxication, uncomplicated - Discharge Dispostion Disposition: HOME Condition at time of disposition: Improved - Referrals - Patient Instructions Printed Discharge Instructions: DI for Alcohol Abuse Additional Instructions: refrain from drinking alcohol - Post Discharge Activity
[2018-08-16] MEDS ORDERED: chlordiazePOXIDE HCL 25 MG CAPSULE PO ONE (06:30)
[2018-08-16] MEDS ORDERED: chlordiazePOXIDE HCL 25 MG CAPSULE ONE (06:35)
--- NOTE | 2018-08-16 08:13 | PDOC ---
*Physical Exam - Vital Signs Last Vital Signs Temp Pulse Resp BP Pulse Ox 97.9 F 91 H 18 166/112 H 96 08/16/18 07:03 08/16/18 07:03 08/16/18 07:03 08/16/18 07:03 08/16/18 07:03 - Physical Exam General Appearance: Yes: Appropriately Dressed. No: Apparent Distress Neck: positive: Supple Respiratory/Chest: positive: Lungs Clear, Normal Breath Sounds. negative: Respiratory Distress Cardiovascular: positive: Regular Rate, S1, S2 Gastrointestinal/Abdominal: positive: Soft. negative: Tender Integumentary: positive: Dry, Warm Neurologic: positive: Fully Oriented, Alert, Normal Mood/Affect ED Treatment Course - Medications Given in the ED: ED Medications Discontinued Medications Generic Name Dose Route Start Last Admin Trade Name Freq PRN Reason Stop Dose Admin Chlordiazepoxide HCl 50 mg 08/16/18 06:30 08/16/18 06:44 Librium - PO 08/16/18 06:31 50 mg ONCE ONE Administration Medical Decision Making - Medical Decision Making 08/16/18 08:11 Pt signed out to me at 7 AM Patient is a 63-year-old male who is very well-known to ED staff 2/2 to numerous ED visits, mostly for intoxication with history of alcohol abuse, mesothelioma, hypertension, is undomiciled, here with alcohol intoxication. While pending sobriety, patient began having tremors and has since been treated with librium. As per prior team, plan is to reassess and discharge once improved. Pt currently sleeping 08/16/18 10:16 Pt now awake and ambulating throughout ER, requesting food and states he wants to be discharged. Pt mo well, in NAD w/ no obvious tremors. Vitals wnl on reassessment. In-pt detox offered to pt, who refuses at this time. *DC/Admit/Observation/Transfer Diagnosis at time of Disposition: Alcohol intoxication Qualifiers: Complication of substance-induced condition: uncomplicated Qualified Code(s): F10.920 - Alcohol use, unspecified with intoxication, uncomplicated - Discharge Dispostion Disposition: HOME Condition at time of disposition: Improved - Referrals - Patient Instructions Printed Discharge Instructions: DI for Alcohol Abuse Additional Instructions: refrain from drinking alcohol - Post Discharge Activity
[2018-08-16 10:24] VITALS: BP 133/78; PULSE 87; TEMP 98
== END 2018-08-16 10:57 | disposition home or self-care (01) ==
LOC: JER 15:23
DX: F10.220 Alcohol dependence with intoxication, uncomplicated (principal); I10 Essential (primary) hypertension; C45.9 Mesothelioma, unspecified; Z59.0 Homelessness
CPT/HCPCS: 99284-25

== ENCOUNTER 2018-08-16 19:33 | Emergency (ER) | payer OTHER ==
--- NOTE | 2018-08-16 19:38 | PDOC ---
Rapid Medical Evaluation Time Seen by Provider: 08/16/18 19:35 Medical Evaluation: Allergies Allergy/AdvReac Type Severity Reaction Status Date / Time Fish Containing Products Allergy Mild Swelling Verified 08/14/18 18:18 No Known Drug Allergies Allergy Verified 08/14/18 18:18 08/16/18 19:35 I have performed a brief in-person evaluation of this patient. The patient presents with a chief complaint of: ETOH- admits to 1 delia Desai Pertinent physical exam findings: right shoulder TTP. I have ordered the following: nothing The patient will proceed to the ED for further evaluation. Discharge Disposition - Diagnosis Alcohol intoxication - Referrals - Patient Instructions - Post Discharge Activity
[2018-08-16 19:46] VITALS: BP 96/51; PULSE 83; TEMP 97.5; BMI 31.5
--- NOTE | 2018-08-16 22:16 | PDOC ---
History of Present Illness - General Chief Complaint: Alcohol intoxication Stated Complaint: INTOXICATION Time Seen by Provider: 08/16/18 19:35 History Source: Patient Exam Limitations: Intoxication - History of Present Illness Initial Comments: Pt is a 63 yo M, with PMH of chronic alcohol abuse, mesothelioma, and HTN, who is presenting via EMS 2/2 to alcohol intoxication. Pt is undomiciled. Pt is well known to ED staff, and left the department this morning after achieving clinical sobriety. Pt was found outside and admits to drinking "some liquor". Pt is slurring words, and has no current complaints at this time. Pt denies having any falls or pain. 08/16/18 22:52 Past History - Travel Traveled outside of the country in the last 30 days: No Close contact w/someone who was outside of country & ill: No - Past Medical History Allergies/Adverse Reactions: Allergies Allergy/AdvReac Type Severity Reaction Status Date / Time Fish Containing Products Allergy Mild Swelling Verified 08/16/18 19:43 No Known Drug Allergies Allergy Verified 08/16/18 19:43 Home Medications: Ambulatory Orders NK [No Known Home Medication] 08/14/18 Anemia: No Asthma: No Cancer: Yes (mesothelioma lung cancer) Cardiac Disorders: No CVA: No COPD: No CHF: No DVT: No Dementia: No Diabetes: No GI Disorders: No Disorders: No HTN: Yes (non compliance) Hypercholesterolemia: No Kidney Stones: No Liver Disease: No Psychiatric Problems: Yes (etoh) Seizures: No Thyroid Disease: No - Surgical History Abdominal Surgery: No Appendectomy: No Cardiac Surgery: No Cholecystectomy: No Lung Surgery: No Neurologic Surgery: No Orthopedic Surgery: No - Family Disease History Family Disease History: CA: Mother - Reproductive History Testicular Surgery: No - Immunization History TDAP Vaccination: Yes Immunization Up to Date: Yes - Suicide/Smoking/Psychosocial Hx Smoking Status: No Smoking History: Never smoked Have you smoked in the past 12 months: No Number of Cigarettes Smoked Daily: 0 If you are a former smoker, when did you quit?: 0 Cigars Per Day: 0 Information on smoking cessation initiated: No 'Breaking Loose' booklet given: 09/22/17 Hx Alcohol Use: Yes (Daily) Drug/Substance Use Hx: Yes (Alcohol) Substance Use Type: Alcohol Hx Substance Use Treatment: Yes ([facility] 04/05/18 to 04/08/18) Review of Systems - Review of Systems Able to Perform ROS?: No (intoxicated) Is the patient limited Sami proficient: No *Physical Exam - Vital Signs Last Vital Signs Temp Pulse Resp BP Pulse Ox 97.5 F L 83 18 96/51 L 97 08/16/18 19:44 03 19:44 03 19:44 08/16/18 19:44 08/16/18 19:44 - Physical Exam Comments: Vitals stable, pt afebrile. Pt in NAD, obese body habitus. PE showed pt alert to verbal stimuli, oriented to person and place, slurring words. Pt foul smelling wiht dirty clothes. 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 Head normocephalic, atraumatic. Eyes PERRLA, EOMI. Oropharynx without erythema or exudates, no LAD b/l. No nasal congestion, hearing intact. Clear heart sounds, S1/S2, no JVD, or heart murmur. B/l pitting edema to ankles (chronic). Clear lung sounds, no respiratory distress, wheezes, crackles, or accessory muscle use. No abdominal or CVA tenderness to palpation, no rebound, no guarding. Abdomen soft, protuberant, and with normoactive bowel sounds. Skin without jaundice or rash. 08/16/18 23:10 Moderate Sedation - Procedure Monitoring Vital Signs: Procedure Monitoring Vital Signs Temperature 97.5 F L 08/16/18 19:44 Pulse Rate 83 08/16/18 19:44 Respiratory Rate 18 08/16/18 19:44 Blood Pressure 96/51 L 08/16/18 19:44 O2 Sat by Pulse Oximetry (%) 97 08/16/18 19:44 Medical Decision Making - Medical Decision Making Pt was seen at bedside, also will be seen by attending Dr. Csaanova. Pt presenting via EMS 07/17 to alcohol intoxication. Pt is well known to ED staff, and left the department this morning after achieving clinical sobriety. Pt was found outside and admits to drinking "some liquor". Pt is slurring words, and has no current complaints at this time. Pt denies having any falls or pain. Vitals stable, pt afebrile. Pt in NAD, obese body habitus. PE showed pt alert to verbal stimuli, oriented to person and place, slurring words. Pt foul smelling wiht dirty clothes. 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 Head normocephalic, atraumatic. Eyes PERRLA, EOMI. Oropharynx without erythema or exudates, no LAD b/l. No nasal congestion, hearing intact. Clear heart sounds, S1/S2, no JVD, or heart murmur. B/l pitting edema to ankles (chronic). Clear lung sounds, no respiratory distress, wheezes, crackles, or accessory muscle use. No abdominal or CVA tenderness to palpation, no rebound, no guarding. Abdomen soft, protuberant, and with normoactive bowel sounds. Skin without jaundice or rash. No interventions provided at this time. Will continue to reassess pt and monitor for symptomatic improvement and clinical sobriety. 08/16/18 22:49 Pt clinically sober. Pt able to walk, no nystagmus, speaking in full sentences without slurring. Pt able to ambulate from department and will call a cab. 08/17/18 05:44 *DC/Admit/Observation/Transfer Diagnosis at time of Disposition: Alcohol intoxication Qualifiers: Complication of substance-induced condition: uncomplicated Qualified Code(s): F10.920 - Alcohol use, unspecified with intoxication, uncomplicated - Discharge Dispostion Disposition: HOME Condition at time of disposition: Improved Decision to Admit order: No - Referrals Referrals: [facility] [place] [Provider Group] - Patient Instructions Printed Discharge Instructions: DI for Alcohol Abuse Additional Instructions: You were seen in the ER today for alcohol intoxication. Please follow-up with your primary care doctor within 1-2 days to discuss your visit and make sure your symptoms have improved. Please return to the ER if you have any tremors or seizures, development of fevers or chills, loss of consciousness, inability to tolerate food or fluids, or any other concerns. - Post Discharge Activity
--- NOTE | 2018-08-16 22:53 | PDOC ---
Attending Attestation - HPI HPI: 08/16/18 22:57 The patient is a 63 year old male, with a significant past medical history of recent admission for right humeral fracture, chronic back pain, alcoholism, HTN , and mesothelioma, who presents to the emergency department with, alcohol intoxication. Patient endorses drinking approximately 1 pint of vodka today. He denies any recent fevers, chills, headache or dizziness. He denies any recent nausea, vomit, diarrhea or constipation. He denies any recent chest pain or shortness of breath. He denies any recent dysuria, frequency, urgency or hematuria. Allergies: Fish containing products. Social History: Alcoholic. - Physicial Exam PE: 08/16/18 22:57 +GENERAL: Disheveled. Malodorous. Alcohol on breath, intoxicated. No apparent distress. HEENT: Normocephalic, atraumatic. PERRL, EOM intact. CARDIOVASCULAR: Normal S1, S2. Regular rate and rhythm. PULMONARY: Clear to auscultation bilaterally. ABDOMEN: Soft, non-distended, non-tender. EXTREMITIES: Normal ROM in all four extremities. No gross deformities. SKIN: Warm, dry. No rash NEUROLOGICAL: No focal neurological deficits. <Susu Gonzales - Last Filed: 08/16/18 22:57> - Resident Resident Name: Sadie Elkins - ED Attending Attestation I have performed the following: I have examined & evaluated the patient, The case was reviewed & discussed with the resident, I agree w/resident's findings & plan, Exceptions are as noted - Medical Decision Making 08/16/18 23:01 plan pt well known to our facility/will d/c when safe <Sue Casanova - Last Filed: 08/16/18 23:01> Attestations - Attestations 08/16/18 22:58 Documentation prepared by Susu Gonzales, acting as emergency medical technician/driver for Sue Casanova MD. <Susu Gonzales - Last Filed: 08/16/18 22:57>
== END 2018-08-17 06:00 | disposition home or self-care (01) ==
LOC: JER 19:33
DX: F10.220 Alcohol dependence with intoxication, uncomplicated (principal); I10 Essential (primary) hypertension; C45.9 Mesothelioma, unspecified; Z59.0 Homelessness
CPT/HCPCS: 99282-25

== ENCOUNTER 2018-08-25 19:48 | Inpatient (IN) | payer OTHER ==
--- NOTE | 2018-08-25 19:51 | PDOC ---
Rapid Medical Evaluation Time Seen by Provider: 08/25/18 19:50 Medical Evaluation: Allergies Allergy/AdvReac Type Severity Reaction Status Date / Time Fish Containing Products Allergy Mild Swelling Verified 08/16/18 19:43 No Known Drug Allergies Allergy Verified 08/16/18 19:43 08/25/18 19:50 I have performed a brief in-person evaluation of this patient. The patient presents with a chief complaint of: intoxication Pertinent physical exam findings: slurred speech. reports ETOH intake today I have ordered the following: nothing The patient will proceed to the ED for further evaluation. Discharge Disposition - Diagnosis Alcohol intoxication - Referrals - Patient Instructions - Post Discharge Activity
--- NOTE | 2018-08-25 23:06 | PDOC ---
History of Present Illness - General Chief Complaint: Alcohol intoxication Stated Complaint: INTOXICATION Time Seen by Provider: 08/25/18 19:50 History Source: Patient Exam Limitations: Clinical Condition, Intoxication - History of Present Illness Initial Comments: 08/25/18 23:04 Patient is 63M well known to the ED with history of chronic alcohol abuse, mesothelioma, and HTN here today with intoxication. History limited by patient' s intoxication, he reports drinking today. Patient seems more confused than normal, and has large amount of swelling to hands and feet. Patient appears more disheveled with stool in pants. Has a set of sores around his right foot, his shoes no longer fit. Past History - Past Medical History Allergies/Adverse Reactions: Allergies Allergy/AdvReac Type Severity Reaction Status Date / Time Fish Containing Products Allergy Mild Swelling Verified 08/16/18 19:43 No Known Drug Allergies Allergy Verified 08/16/18 19:43 Home Medications: Ambulatory Orders NK [No Known Home Medication] 08/14/18 Anemia: No Asthma: No Cancer: Yes (mesothelioma lung cancer) Cardiac Disorders: No CVA: No COPD: No CHF: No DVT: No Dementia: No Diabetes: No GI Disorders: No Disorders: No HTN: Yes (non compliance) Hypercholesterolemia: No Kidney Stones: No Liver Disease: No Psychiatric Problems: Yes (etoh) Seizures: No Thyroid Disease: No - Surgical History Abdominal Surgery: No Appendectomy: No Cardiac Surgery: No Cholecystectomy: No Lung Surgery: No Neurologic Surgery: No Orthopedic Surgery: No - Family Disease History Family Disease History: CA: Mother - Reproductive History Testicular Surgery: No - Immunization History TDAP Vaccination: Yes Immunization Up to Date: Yes - Suicide/Smoking/Psychosocial Hx Smoking Status: No Smoking History: Never smoked Have you smoked in the past 12 months: No Number of Cigarettes Smoked Daily: 0 If you are a former smoker, when did you quit?: 0 Cigars Per Day: 0 Information on smoking cessation initiated: No 'Breaking Loose' booklet given: 09/22/17 Hx Alcohol Use: No Drug/Substance Use Hx: No Substance Use Type: Alcohol Hx Substance Use Treatment: Yes ([facility] 04/05/18 to 04/08/18) Review of Systems - Review of Systems Able to Perform ROS?: No (2/2 intoxication) *Physical Exam - Vital Signs Last Vital Signs Temp Pulse Resp BP Pulse Ox 98.5 F 81 18 115/54 L 94 L 08/25/18 21:02 08/25/18 21:02 08/25/18 21:02 08/25/18 21:02 08/25/18 21:02 - Physical Exam Comments: 08/25/18 23:08 ENERAL: Awake, alert, slurred speech HEAD: No signs of trauma, normocephalic, atraumatic EYES: PERRLA, EOMI, sclera anicteric, conjunctiva clear ENT: Auricles normal inspection, hearing grossly normal, nares patent, oropharynx clear without exudates. Moist mucosa NECK: Normal ROM, supple, no lymphadenopathy, JVD, or masses LUNGS: No distress, speaks full sentences, clear to auscultation bilaterally HEART: Regular rate and rhythm, normal S1 and S2, no murmurs, rubs or gallops, peripheral pulses normal and equal bilaterally. ABDOMEN: +fluid wave, nontender, distended EXTREMITIES: Several ulcers to left foot, 2+ edema bilaterally. NEUROLOGICAL: Cranial nerves II through XII grossly intact. Slurred speech, no focal sensorimotor deficits SKIN: Warm, Dry, normal turgor, no rashes or lesions noted. Moderate Sedation - Procedure Monitoring Vital Signs: Procedure Monitoring Vital Signs Temperature 98.5 F 08/25/18 21:02 Pulse Rate 81 08/25/18 21:02 Respiratory Rate 18 08/25/18 21:02 Blood Pressure 115/54 L 08/25/18 21:02 O2 Sat by Pulse Oximetry (%) 94 L 08/25/18 21:02 ED Treatment Course - LABORATORY CBC & Chemistry Diagram: 08/25/18 23:01 08/25/18 23:01 - RADIOLOGY Radiology Studies Ordered: Category Date Time Status CHEST X-RAY PORTABLE* [RAD] Stat Radiology 08/25/18 22:51 Ordered Medical Decision Making - Medical Decision Making 08/25/18 23:10 Patient is 63M well known to the ED here today with intoxication. Vitals normal and stable. Patient appears unwell from baseline. Concern for metabolic derangement, infection, hepatic encephalopathy. Broad workup initiated. 08/26/18 01:23 CBC shows baseline anemia. VBG reassuring. CMP shows hypokalemia of 2.9. Lactate 2.4. ETOH 280. EKG done. EKG shows afib with RVR, rate of 128. No st elevations/depressions. Normal axis. Normal intervals. No significant t wave abnormalities. CXR shows no acute changes from prior x-rays. BNP normal. Patient reassessed. BP 99/63, HR 128. No signs of withdrawal. Believe patient is third spacing fluid and afib with RVR is caused by intravascular depletion, will give 1L NS with 20meq KCl. Will admit for afib w/ rvr. 08/26/18 02:45 Case d/w Dr Lizama. *DC/Admit/Observation/Transfer Diagnosis at time of Disposition: Alcohol intoxication, Hypokalemia, Atrial fibrillation with RVR - Discharge Dispostion Condition at time of disposition: Stable Decision to Admit order: Yes - Referrals Referrals: Garima Bridges MD [Primary Care Provider] - - Patient Instructions - Post Discharge Activity
--- NOTE | 2018-08-25 23:31 | PDOC ---
Attending Attestation - HPI HPI: 08/25/18 23:31 Patient is a 63 year old male well known to ED, with a significant past medical history of chronic alcohol abuse, mesothelioma, and HTN who presents to the ED with complaints of intoxication as well as increased bilateral lower extremity and upper extremity swelling. Patient appears more disheveled with stool in pants. Has a set of sores around his right foot, his shoes no longer fit. Patient's history limited by patient's intoxication Denies chest pain, sob. Denies nausea, vomiting. Deines fevers, chills. Denies dysuria, hematuria. Denies out of state travelling. Denies any other symptoms. Allergies: Fish containing products. Social history: Current Alcohol dependence. Current smoker. Surgical history: Unknown PMD: None - Physicial Exam PE: 08/25/18 23:31 Agree with residents Physical Exam. <Kamari Flores - Last Filed: 08/25/18 23:31> - Resident Resident Name: Edilberto Lenz - ED Attending Attestation I have performed the following: I have examined & evaluated the patient, The case was reviewed & discussed with the resident, I agree w/resident's findings & plan - Medical Decision Making 08/26/18 01:43 63-year-old male with history of severe alcohol abuse with increasing edema and generalized weakness Labs are consistent with a hypokalemia as well as lactic acidosis EKG shows a rapid atrial fibrillation which according to previous records appears to be new IV fluid normal saline initiated Plan for admission to medical service if the patient agrees <Tricia Lugo - Last Filed: 08/26/18 01:45>
[2018-08-25 23:48] LABS: BASO % 1.4 % (0-2.0); EOS % 4.3 % (0-4.5); HEMATOCRIT 28.3 % (35.4-49); HEMOGLOBIN 9.4 GM/dL (11.7-16.9); LYMPH % 40.5 % (8-40); MCHC 33.2 g/dl (32.0-35.9); MEAN CELL VOLUME 84.5 fl (80-96); MEAN PLT VOLUME 7.4 fl (7.5-11.1); MONO % 7.5 % (3.8-10.2); NEUT % 46.3 % (42.8-82.8); PLATELET COUNT 198 K/MM3 (134-434); RBC 3.35 M/mm3 (4.00-5.60); RDW 27.5 % (11.9-15.9)
[2018-08-25 23:53] LABS: VENOUS PC02 52.2 mmHg (41-51); VENOUS PH 7.37 (7.31-7.41); VENOUS PO2 52.3 mmHg (30-40)
[2018-08-26 00:31] LABS: ALBUMIN 2.8 g/dl (3.4-5.0); ALK PHOS 149 U/L (45-117); ANION GAP 6 MMOL/L (8-16); BILIRUBIN,TOTAL 0.3 mg/dL (0.2-1); BLOOD UREA NITROGEN 8 mg/dL (7-18); CALCIUM 7.9 mg/dL (8.5-10.1); CHLORIDE 109 mmol/L (98-107); CO2 30 mmol/L (21-32); CREATININE 0.5 mg/dL (0.55-1.3); GLUCOSE,RANDOM 88 mg/dL (74-106); N-TERMINAL BNP 36.7 pg/ml (5-125); SGOT/AST 31 U/L (15-37); SGPT/ALT 23 U/L (13-61); SODIUM 145 mmol/L (136-145); TOT PROT 5.8 g/dl (6.4-8.2)
[2018-08-26 00:38] LABS: INR 0.95 (0.83-1.09); PROTHROMBIN TIME (PATIENT) 11.2 SEC (9.7-13.0)
[2018-08-26 00:41] LABS: ACTIVATED PTT 29.4 SECONDS (25.2-36.5)
[2018-08-26 00:48] LABS: POTASSIUM 2.9 mmol/L (3.5-5.1)
[2018-08-26] MEDS ORDERED: SODIUM CHLORIDE 0.9%/KCL 20 MEQ/1,000 ML INFUS.BAG IV SCH (01:30)
--- NOTE | 2018-08-26 02:13 | HP ---
CHIEF COMPLAINT:alcohol intoxication PCP:none HISTORY OF PRESENT ILLNESS: Patient is a 63 year old male well known to ED, with a significant past medical history of chronic alcohol abuse, mesothelioma, and HTN who presents to the ED with complaints of intoxication as well as increased bilateral lower extremity and upper extremity swelling. Patient appears more disheveled with stool in pants. Has a set of sores around his right foot, his shoes no longer fit. Patient's history limited by patient's intoxication Denies chest pain, sob. Denies nausea, vomiting. Deines fevers, chills. Denies dysuria, hematuria. Denies out of state travelling. Denies any other symptoms. ER course was notable for: (1)cbc, cmp (2)EKG AFIB vs A flutter my reading (3)LA 2.4 Recent Travel:denies , homeless PAST MEDICAL HISTORY: as per HPI PAST SURGICAL HISTORY: Social History: Smoking: Alcohol:dependence Drugs: Family History:non contributory Allergies Fish Containing Products Allergy (Mild, Verified 08/16/18 19:43) Swelling No Known Drug Allergies Allergy (Verified 08/16/18 19:43) HOME MEDICATIONS: Home Medications Medication Instructions Recorded NK [No Known Home Medication] 08/14/18 REVIEW OF SYSTEMS not able to obtain PHYSICAL EXAMINATION Vital Signs - 24 hr 08/25/18 21:02 Temperature 98.5 F Pulse Rate 81 Respiratory 18 Rate Blood Pressure 115/54 L O2 Sat by Pulse 94 L Oximetry (%) GENERAL: intoxicated, , drowsy, HEAD: NC/AT EYES: sclera anicteric, conjunctiva clear. EARS, NOSE, THROAT: MMM NECK: Normal range of motion, supple LUNGS: CTAB HEART: RRR, normal S1 and S2 without murmur, rub or gallop. ABDOMEN: Soft, obese, NTND, normoactive bowel sounds, UPPER EXTREMITIES: No peripheral edema. LOWER EXTREMITIES: . No peripheral edema. wound on medical aspect of left ankle NEUROLOGICAL: Somnolent but arousable. Moves all limbs. No asterexis or tremors. appears to have intact strength and sensation b/l Laboratory Results - last 24 hr 08/25/18 08/25/18 08/25/18 23:01 23:01 23:01 WBC 5.0 RBC 3.35 L Hgb 9.4 L Hct 28.3 L MCV 84.5 MCH 28.0 MCHC 33.2 RDW 27.5 H Plt Count 198 D MPV 7.4 L Absolute Neuts (auto) 2.3 Neutrophils % 46.3 D Lymphocytes % 40.5 H D Monocytes % 7.5 Eosinophils % 4.3 D Basophils % 1.4 D Nucleated RBC % 0 PT with INR 11.20 INR 0.95 PTT (Actin FS) 29.4 VBG pH 7.37 POC VBG pCO2 52.2 H POC VBG pO2 52.3 H VBG HCO3 29.4 H VBG O2 Sat (Renetta) 77.0 VBG Base Excess 3.9 H Sodium Potassium Chloride Carbon Dioxide Anion Gap BUN Creatinine Creat Clearance w eGFR Random Glucose Lactic Acid Calcium Total Bilirubin AST ALT Alkaline Phosphatase Ammonia Troponin I B-Natriuretic Peptide Total Protein Albumin Alcohol, Quantitative 08/25/18 08/25/18 08/25/18 23:01 23:01 23:01 WBC RBC Hgb Hct MCV MCH MCHC RDW Plt Count MPV Absolute Neuts (auto) Neutrophils % Lymphocytes % Monocytes % Eosinophils % Basophils % Nucleated RBC % PT with INR INR PTT (Actin FS) VBG pH POC VBG pCO2 POC VBG pO2 VBG HCO3 VBG O2 Sat (Renetta) VBG Base Excess Sodium 145 Potassium 2.9 L* Chloride 109 H Carbon Dioxide 30 Anion Gap 6 L BUN 8 Creatinine 0.5 L Creat Clearance w eGFR > 60 Random Glucose 88 Lactic Acid 2.4 H* Calcium 7.9 L Total Bilirubin 0.3 AST 31 ALT 23 Alkaline Phosphatase 149 H Ammonia Troponin I < 0.02 Cancelled B-Natriuretic Peptide 36.7 Total Protein 5.8 L Albumin 2.8 L Alcohol, Quantitative 282.6 H 08/25/18 08/25/18 08/25/18 23:01 23:01 23:01 WBC RBC Hgb Hct MCV MCH MCHC RDW Plt Count MPV Absolute Neuts (auto) Neutrophils % Lymphocytes % Monocytes % Eosinophils % Basophils % Nucleated RBC % PT with INR INR PTT (Actin FS) VBG pH POC VBG pCO2 POC VBG pO2 VBG HCO3 VBG O2 Sat (Renetta) VBG Base Excess Sodium Potassium Chloride Carbon Dioxide Anion Gap BUN Creatinine Creat Clearance w eGFR Random Glucose Lactic Acid Calcium Total Bilirubin AST ALT Alkaline Phosphatase Ammonia 38.30 H Troponin I B-Natriuretic Peptide Cancelled Total Protein Albumin Alcohol, Quantitative Cancelled CBC, BMP 08/25/18 23:01 08/25/18 23:01 ASSESSMENT/PLAN: Patient is a 63 year old male, well known to [facility], multiple visits (9th visit in 2019), with PMHx of Alcohol abuse, Mesothelioma (Dx 4 yrs ago), HTN (not on meds), chronic back pain, right humerus fracture, recently treated for B/L lower ext wound infection on (MSSA, Enterococcus) 07/13/18 presented to the ED with alcohol intoxication was found to have remi onset AFib with RVR admitted to inpatient tele for further evaluation # New onset Afib with RVR * HR @ 120 , improved with iv hydration to 84 * Tele * Cardiac ,BP monitor * trend trop * EKG cardiac cnosult * ASA daily # Lactic acidosis * 2.4 on admission repeat after IV fluids NS @ 75 CC * due to immobile for long time vs infection * laboy cx send in ED * monitor off anx as no fever and no WBC elevation , repeat LA after hydration # Alcohol intoxication/dependence CIWA score 2. Patient now has no withdrawal symptoms. Libirum protocol if develop anxiety , withdrawal symptoms Counselled for alcohol inpatient detox and patient agrees. consult Dr. Samuel, IV Banana bag -1 IV Thiamine 100mg Daily Folic acid 1 mg daily Mg, phos daily # Hypokalemia * K 2.9 * replinished * repeat bmp # Hyportension * Was started on Amlodipine 5mg last admission, patient is non compliant. hold for now in term of low BP # Iron def anemia * Last admission, Iron profile was sent. * H/H stable. * Needs GI work up as outpatient # Left foot ulcer > right * No fever, no leukocytosis. monitor for signs of Sepsis. * Wound cx MSSA, enteroccus previous visit , repeat cx * Blood cultures ordered * wound care # Right humeral fracture manage conservatively # Mesothelioma F/up as outpatient # FEN IV Banana bag 1 Electrolytes Pending low sodium diet # Prophylaxis For DVT: Lovenox 40mg sq daily For GI: Protonix 40mg # Code Status: Full Code # Dispo: tele inpatient Visit type - Emergency Visit Emergency Visit: Yes ED Registration Date: 08/26/18 Care time: The patient presented to the Emergency Department on the above date and was hospitalized for further evaluation of their emergent condition. - New Patient This patient is new to me today: Yes Date on this admission: 08/26/18 - Critical Care Critical Care patient: No
[2018-08-26] MEDS ORDERED: POTASSIUM CHLORIDE TABS 20 MEQ TABLET.ER (FP) PO ONE ×2 (03:55→04:47)
--- NOTE | 2018-08-26 03:59 | PN ---
Teaching Attending Note Name of Resident: See Lizama ATTENDING PHYSICIAN STATEMENT I saw and evaluated the patient. I reviewed the resident's note and discussed the case with the resident. I agree with the resident's findings and plan as documented. SUBJECTIVE: Patient is a 63 year old man with a PMH of alcohol abuse, mesothelioma, and HTN who presents to the ER with complaints of intoxication as well as increased bilateral lower extremity and upper extremity swelling. He reportedly is said by ER staff to be more disheveled than usual with stool in his pants. Has a set of sores around his right foot, his shoes no longer fit properly. Patient's history is limited by alcohol intoxication. He denies chest pain, SOB, nausea, vomiting, fevers, chills, dysuria, hematuria or change in bowel habits. Denies out of state travelling. OBJECTIVE: Alert Vital Signs Period Temp Pulse Resp BP Sys/Jang Pulse Ox Last 24 Hr 98.5 F 81 18 115/54 94 HEENT: No Jaundice, eye redness or discharge, PERRLA, EOMI. Normocephalic, atraumatic. External ears are normal and hearing is grossly intact. No nasal discharge. Neck: Supple, nontender. No palpable adenopathy or thyromegaly. No JVD Chest: Good effort. Clear to auscultation and percussion. Heart: Irregularly irregular. No S3, rub or murmur Abdomen: Not distended, soft, nontender and no HSM. No rebound or guarding. Normal bowel sounds. Ext: Peripheral pulses intact. Chronic sores on left foot and leg edema. Skin: Warm and dry. No petechiae, rash or ecchymosis. Neuro: Alert. Oriented to person and place. Slow speech. No asterexis or tremors. CN 2-12 grossly intact. Sensation grossly intact in all four extremities and DTR are symmetric. Psych: Poor insight. Mood and affect are appropriate. Current Medications Generic Name Dose Route Start Last Admin Trade Name Freq PRN Reason Stop Dose Admin Potassium Chloride/Sodium Chloride 20 meq in 1,000 mls @ 250 mls/hr 08/26/18 01:30 08/26/18 02:38 Ns+20 Meq Kcl - IV 250 mls/hr ASDIR CAREY Administration Home Medications Medication Instructions Recorded NK [No Known Home Medication] 08/14/18 Abnormal Lab Results 08/25/18 08/25/18 08/25/18 23:01 23:01 23:01 RBC 3.35 L Hgb 9.4 L Hct 28.3 L RDW 27.5 H MPV 7.4 L Lymphocytes % 40.5 H D POC VBG pCO2 52.2 H POC VBG pO2 52.3 H VBG HCO3 29.4 H VBG Base Excess 3.9 H Potassium 2.9 L* Chloride 109 H Anion Gap 6 L Creatinine 0.5 L Lactic Acid Calcium 7.9 L Alkaline Phosphatase 149 H Ammonia Total Protein 5.8 L Albumin 2.8 L Alcohol, Quantitative 282.6 H 08/25/18 08/25/18 23:01 23:01 RBC Hgb Hct RDW MPV Lymphocytes % POC VBG pCO2 POC VBG pO2 VBG HCO3 VBG Base Excess Potassium Chloride Anion Gap Creatinine Lactic Acid 2.4 H* Calcium Alkaline Phosphatase Ammonia 38.30 H Total Protein Albumin Alcohol, Quantitative ASSESSMENT AND PLAN: 1. Alcohol intoxication/New onset Afib - Hypokalemia likely due to alcoholism associated urinary wasting and poor intake. Will check serum Mg+ and give IV and PO KCL. Treat with IV banana bag. Implement CIWA ativan alcohol withdrawal protocol, neurochecks, seizure, fall and aspiration precautions. Treat with thiamine and folic acid and monitor electrolytes (Ca,Mg,K,P). 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 Consult asset protection specialist. Elevated NH3 level and lactic acidosis likely due to alcohol use. Will trend lactic acid level as he is hydrated and monitor him closely for features of hepatic encephalopathy. No indication for lactulose/rifaximin at this time. Provide daily care of sores on his left foot. Afib/flutter may signal "holiday heart syndrome". Will withhold anticoagulation for now pending cardiology evaluation. No significant ST-T wave changes on EKG. Will monitor him on telemetry, get ECHO and consult cardiology. Leg edema may signal LV dysfunction and effects of low albumin. ECHO from 07/25/2015 was normal with LVEF of 56.5%. Patient is underweight. Will consult program manufacturing leader. 2. Hypoalbuminemia - Possibly due to combined effects of malnutrition and inflammation associated with comorbid chronic conditions. Will ensure adequate dietary protein intake and also consult program manufacturing leader. 3. Anemia - Likely primarily due to alcoholism and malnutrition. Will do basic anemia work up including serial stool guaiacs, reticulocyte count and iron studies. 4. Hypertension - Restart outpatient antihypertensive drugs and revise regimen to ensure smooth [id number] good BP control. Nonpharmacologic measures to control hypertension like weight loss, salt restriction and exercise discussed. 5. DVT prophylaxis - Lovenox 40 mg SQ q 24 hours. 6. Advance directives - Full code
[2018-08-26] MEDS ORDERED: ACETAMINOPHEN 325 MG TABLET (FP) PO PRN (04:55)
[2018-08-26 04:58] LABS: PLATELET ESTIMATE ADEQUATE
[2018-08-26 04:59] LABS: ANISOCYTOSIS 2+; OVALOCYTE 1+; TEAR DROP CELLS 1+
[2018-08-26] MEDS: SODIUM CHLORIDE 1,000 ML IV SCH (05:15)
[2018-08-26] MEDS ORDERED: FOLIC ACID INJECTION - 1 MG, THIAMINE HCL 100 MG, MULTIVIT INJECTION ADULT 10 ML in SOD... IVPB ONE (05:24)
[2018-08-26 06:39] LABS: BASO % 1.4 % (0-2.0); EOS % 4.2 % (0-4.5); HEMATOCRIT 29.9 % (35.4-49); HEMOGLOBIN 9.7 GM/dL (11.7-16.9); LYMPH % 33.5 % (8-40); MCH 27.4 pg (25.7-33.7); MCHC 32.5 g/dl (32.0-35.9); MEAN CELL VOLUME 84.6 fl (80-96); MONO % 7.9 % (3.8-10.2); PLATELET COUNT 189 K/MM3 (134-434); RBC 3.54 M/mm3 (4.00-5.60); RDW 27.6 % (11.9-15.9); WHITE BLOOD COUNT 3.8 K/mm3 (4.0-10.0)
[2018-08-26] MEDS ORDERED: HEPARIN NA (PORCINE) 5,000 UNITS/ML 1ML VIAL ONE (06:42)
[2018-08-26] MEDS: HEPARIN NA (PORCINE) 5,000 UNITS/ML 1ML VIAL SQ SCH ×3 (06:43→22:38)
[2018-08-26 07:05] LABS: INR 1.01 (0.83-1.09); PROTHROMBIN TIME (PATIENT) 11.9 SEC (9.7-13.0)
[2018-08-26 07:09] LABS: ALBUMIN 2.6 g/dl (3.4-5.0); ALK PHOS 144 U/L (45-117); ANION GAP 6 MMOL/L (8-16); BILIRUBIN,TOTAL 0.4 mg/dL (0.2-1); BLOOD UREA NITROGEN 7 mg/dL (7-18); CALCIUM 7.8 mg/dL (8.5-10.1); CHLORIDE 110 mmol/L (98-107); CHOLESTEROL 181 mg/dL (50-200); CO2 29 mmol/L (21-32); CREATININE 0.4 mg/dL (0.55-1.3); GLUCOSE,RANDOM 89 mg/dL (74-106); HDL CHOLESTEROL 95 mg/dL (40-60); MAGNESIUM 1.6 mg/dL (1.8-2.4); N-TERMINAL BNP 98.1 pg/ml (5-125); PHOSPHOROUS 3.7 mg/dL (2.5-4.9); SGOT/AST 28 U/L (15-37); SGPT/ALT 22 U/L (13-61); SODIUM 146 mmol/L (136-145); TOT PROT 5.6 g/dl (6.4-8.2); TRIGLYCERIDES 93 mg/dL (0-150)
[2018-08-26 07:28] LABS: ACTIVATED PTT 29.5 SECONDS (25.2-36.5)
[2018-08-26] MEDS ORDERED: CALCIUM GLUCONATE 10% - 1,000 MG/10 ML VIAL IVPB ONE (08:15)
[2018-08-26] MEDS ORDERED: MAGNESIUM SULF 50% (8.12 MEQ/2 ML-1 GM VIAL) IVPB ONE (08:15)
--- NOTE | 2018-08-26 09:41 | EKG ---
Test Reason : Blood Pressure : / mmHG Vent. Rate : 128 BPM Atrial Rate : 128 BPM P-R Int : 000 ms QRS Dur : 096 ms QT Int : 346 ms P-R-T Axes : 000 -18 076 degrees QTc Int : 505 ms ATRIAL FIBRILLATION WITH RAPID VENTRICULAR RESPONSE ABNORMAL ECG WHEN COMPARED WITH ECG OF 12-JUL-2018 23:34, ATRIAL FIBRILLATION HAS REPLACED SINUS RHYTHM Confirmed by ANGELINA HYLTON MD ([id number]) on 08/26/2018 9:40:58 AM Referred By: Confirmed By:ANGELINA HYLTON MD
[2018-08-26] MEDS ORDERED: LOSARTAN 50MG/HCTZ 12.5MG 1 TAB (FP) PO SCH (10:00)
[2018-08-26 10:15] LABS: URINE APPEARANCE CLEAR; URINE BILIRUBIN NEGATIVE (<2.0 mg/dL); URINE COLOR YELLOW; URINE GLUCOSE (UA) NEGATIVE (NEGATIVE); URINE KETONE NEGATIVE (NEGATIVE); URINE LEUK ESTERASE NEGATIVE (NEGATIVE); URINE NITRITE NEGATIVE (NEGATIVE); URINE PROTEIN NEGATIVE (NEGATIVE); URINE UROBILINOGEN NEGATIVE mg/dL (0.2-1.0)
[2018-08-26] MEDS: PANTOPRAZOLE 40 MG TABLET (FP) PO SCH (10:30)
[2018-08-26] MEDS: FOLIC ACID 1 MG TABLET (FP) PO SCH (10:30)
[2018-08-26] MEDS: ASPIRIN COATED 81 MG TABLET.EC PO SCH (10:30)
--- NOTE | 2018-08-26 10:39 | CON.CARD ---
Cardiology Consult (text) - Consultation Consultation Note: cc: body aches hpi: 63 m hx etoh abuse, htn, mesothelioma, here with body aches. Pt has been actively abusing etoh. Came to ER with body aches all over. Among his body aches is cp. CP is constant for several days per pt. It is mild, across front of chest right and left. Feels like tightness/soreness. Worse with movement of arms and deep breaths and with palpation of chest wall. No sob, dizzy, loc, pnd, orthopnea. Also some le edema has developed In er found afib with rvr. pmh: per hpi psh: nc social: +etoh abuse fam: no premature cad, scd ros: per hpi; no fever, nvd, cough, nasal congestion, GARCIA, rash, wt loss, gib, hematuria, all others negative meds: Home Medications Medication Instructions Recorded NK [No Known Home Medication] 08/14/18 pe: Vital Signs Period Temp Pulse Resp BP Sys/Jang Pulse Ox Last 24 Hr 98.5 F 81 18-18 115-156/54-97 93-94 nad no jvd rrr s1s2 no mrg cta bl nl eff aaox3 trace le edema, no c/c abd nt nd pos bs no jaundice diaphoresis +dp pt, no carotid bruits +chest wall tender to palpation Laboratory Last Values WBC 3.8 K/mm3 (4.0-10.0) L 08/26/18 06:12 RBC 3.54 M/mm3 (4.00-5.60) L 08/26/18 06:12 Hgb 9.7 GM/dL (11.7-16.9) L 08/26/18 06:12 Hct 29.9 % (35.4-49) L 08/26/18 06:12 MCV 84.6 fl (80-96) 08/26/18 06:12 MCH 27.4 pg (25.7-33.7) 08/26/18 06:12 MCHC 32.5 g/dl (32.0-35.9) 08/26/18 06:12 RDW 27.6 % (11.9-15.9) H 08/26/18 06:12 Plt Count 189 K/MM3 (134-434) 08/26/18 06:12 MPV 7.0 fl (7.5-11.1) L 08/26/18 06:12 Absolute Neuts (auto) 2.0 K/mm3 (1.5-8.0) 08/26/18 06:12 Neutrophils % 53.0 % (42.8-82.8) 08/26/18 06:12 Lymphocytes % 33.5 % (8-40) 08/26/18 06:12 Monocytes % 7.9 % (3.8-10.2) 08/26/18 06:12 Eosinophils % 4.2 % (0-4.5) 08/26/18 06:12 Basophils % 1.4 % (0-2.0) 08/26/18 06:12 Nucleated RBC % 0 % (0-0) 08/26/18 06:12 Platelet Estimate Adequate 08/25/18 23:01 Platelet Comment Large platelets 08/25/18 23:01 Poikilocytosis 2+ 08/25/18 23:01 Anisocytosis 2+ 08/25/18 23:01 Microcytosis 1+ 08/25/18 23:01 Tear Drop Cells 1+ 08/25/18 23:01 Ovalocytes 1+ 08/25/18 23:01 Stomatocytes 1+ 08/25/18 23:01 PT with INR 11.90 SEC (9.7-13.0) 08/26/18 06:12 INR 1.01 (0.83-1.09) 08/26/18 06:12 PTT (Actin FS) 29.5 SECONDS (25.2-36.5) 08/26/18 06:12 VBG pH 7.37 (7.31-7.41) 08/25/18 23:01 POC VBG pCO2 52.2 mmHg (41-51) H 08/25/18 23:01 POC VBG pO2 52.3 mmHg (30-40) H 08/25/18 23:01 VBG HCO3 29.4 mmol/L (23-29) H 08/25/18 23:01 VBG O2 Sat (Renetta) 77.0 % (70-80) 08/25/18 23:01 VBG Base Excess 3.9 meq/l (-2-2) H 08/25/18 23:01 Sodium 146 mmol/L (136-145) H 08/26/18 06:12 Potassium 3.0 mmol/L (3.5-5.1) L 08/26/18 06:12 Chloride 110 mmol/L (98-107) H 08/26/18 06:12 Carbon Dioxide 29 mmol/L (21-32) 08/26/18 06:12 Anion Gap 6 MMOL/L (8-16) L 08/26/18 06:12 BUN 7 mg/dL (7-18) 08/26/18 06:12 Creatinine 0.4 mg/dL (0.55-1.3) L 08/26/18 06:12 Creat Clearance w eGFR > 60 (>60) 08/26/18 06:12 Random Glucose 89 mg/dL (74-106) 08/26/18 06:12 Lactic Acid 2.2 mmol/L (0.4-2.0) H* 08/26/18 06:12 Calcium 7.8 mg/dL (8.5-10.1) L 08/26/18 06:12 Phosphorus 3.7 mg/dL (2.5-4.9) 08/26/18 06:12 Magnesium 1.6 mg/dL (1.8-2.4) L 08/26/18 06:12 Total Bilirubin 0.4 mg/dL (0.2-1) 08/26/18 06:12 AST 28 U/L (15-37) 08/26/18 06:12 ALT 22 U/L (13-61) 08/26/18 06:12 Alkaline Phosphatase 144 U/L (45-117) H 08/26/18 06:12 Ammonia 38.30 umol/L (11-32) H 08/25/18 23:01 Creatine Kinase 186 U/L (26-308) 08/26/18 06:12 Creatine Kinase Index 3.4 % (0.0-5.0) 08/26/18 06:12 CK-MB (CK-2) 6.5 ng/mL (0.5-3.6) H 08/26/18 06:12 Troponin I 0.13 ng/ml (0.00-0.05) H 08/26/18 06:12 B-Natriuretic Peptide 98.1 pg/ml (5-125) 08/26/18 06:12 Total Protein 5.6 g/dl (6.4-8.2) L 08/26/18 06:12 Albumin 2.6 g/dl (3.4-5.0) L 08/26/18 06:12 Triglycerides 93 mg/dL (0-150) 08/26/18 06:12 Cholesterol 181 mg/dL (50-200) 08/26/18 06:12 Total LDL Cholesterol 64 mg/dL (5-100) 08/26/18 06:12 HDL Cholesterol 95 mg/dL (40-60) H 08/26/18 06:12 TSH 1.41 uIU/ml (0.358-3.74) 08/26/18 06:12 Urine Color Yellow 08/25/18 08:00 Urine Appearance Clear 08/25/18 08:00 Urine pH 6.0 (5.0-8.0) 08/25/18 08:00 Ur Specific [place] 1.013 (1.010-1.035) 08/25/18 08:00 Urine Protein Negative (NEGATIVE) 08/25/18 08:00 Urine Glucose (UA) Negative (NEGATIVE) 08/25/18 08:00 Urine Ketones Negative (NEGATIVE) 08/25/18 08:00 Urine Blood Negative (NEGATIVE) 08/25/18 08:00 Urine Nitrite Negative (NEGATIVE) 08/25/18 08:00 Urine Bilirubin Negative (<2.0 mg/dL) 08/25/18 08:00 Urine Urobilinogen Negative mg/dL (0.2-1.0) 08/25/18 08:00 Ur Leukocyte Esterase Negative (NEGATIVE) 08/25/18 08:00 Alcohol, Quantitative 282.6 mg/dL (0.0-5.0) H 08/25/18 23:01 echo 07/2015: nl lv/rv, no sig valve abn, mild ao root dil cxr: no chf ecg: afib, rvr, no ischemic changes a/p: 63 m hx etoh abuse, htn, mesothelioma, here with body aches. body aches, cp, borderline trops: -atypical cp, reproducible on exam. -does not seem cardiac, seems msk related. -trop borderline elevation, possibly demand ischemia from afib/rvr. cont to trend trop. new afib, rvr: -presented with new afib and rvr, now in SR -will start toprol 25 qd -chadsvasc is 1 (htn) so has indication for AC, but given his etoh abuse and frequent falls he is not a safe candidate for AC at this time. Cont asa 81. -check echo -monitor on tele htn: -cont current meds
[2018-08-26] MEDS: metoPROLOL SUCCINATE 25 MG TAB.SR.24H (FP) PO SCH (11:00)
[2018-08-26] MEDS ORDERED: chlordiazePOXIDE 5 MG CAPSULE PO ONE (11:13)
[2018-08-26] MEDS ORDERED: CALCIUM GLUCONATE 10% - 1,000 MG/10 ML VIAL ONE (11:15)
[2018-08-26] MEDS ORDERED: MAGNESIUM SULF 50% (8.12 MEQ/2 ML-1 GM VIAL) ONE (11:16)
[2018-08-26] MEDS ORDERED: METOCLOPRAMIDE HCL INJECTION 10 MG/2 ML VIAL IVPUSH PRN (11:47)
[2018-08-26] MEDS ORDERED: chlordiazePOXIDE 5 MG CAPSULE ONE (12:51)
[2018-08-26] MEDS ORDERED: METOCLOPRAMIDE HCL INJECTION 10 MG/2 ML VIAL ONE (12:52)
[2018-08-26 13:16] LABS: ANION GAP 5 MMOL/L (8-16); BLOOD UREA NITROGEN 6 mg/dL (7-18); CALCIUM 8.1 mg/dL (8.5-10.1); CHLORIDE 109 mmol/L (98-107); CO2 30 mmol/L (21-32); CREATININE 0.5 mg/dL (0.55-1.3); GLUCOSE,RANDOM 90 mg/dL (74-106); SODIUM 144 mmol/L (136-145)
[2018-08-26] MEDS ORDERED: chlordiazePOXIDE HCL 25 MG CAPSULE PO PRN (13:44)
[2018-08-26] MEDS: THIAMINE HCL 200 MG/2 ML VIAL IVPB SCH (14:09)
--- NOTE | 2018-08-26 16:10 | ECHO ---
Name: EDDIEYanMANUEL Exam:Adult Echocardiogram Study Date: 08/26/2018 02:48 PM Age: 63 yrs Height: 68 in MMode/2D Measurements & Calculations IVSd: 1.3 cm Ao root diam: 4.1 cm LVIDd: 5.2 cm LA dimension: 3.2 cm LVIDs: 3.7 cm LVPWd: 1.3 cm LVPWs: 1.6 cm EDV(Teich): 131.4 ml ESV(Teich): 59.3 ml RV S Jesus: 21.1 cm/sec Doppler Measurements & Calculations MV V2 max: 108.6 cm/sec MV E max jesus: 66.5 cm/sec MV max P.7 mmHg MV A max jesus: 120.3 cm/sec MV V2 mean: 63.7 cm/sec MV E/A: 0.55 MV mean P.9 mmHg MV dec time: 0.13 sec MV V2 VTI: 21.5 cm Ao V2 max: 138.8 cm/sec LV V1 max P.0 mmHg Ao max P.7 mmHg LV V1 mean P.8 mmHg Ao V2 mean: 97.0 cm/sec LV V1 max: 132.4 cm/sec Ao mean P.4 mmHg LV V1 mean: 91.4 cm/sec Ao V2 VTI: 28.3 cm LV V1 VTI: 27.0 cm PA V2 max: 79.5 cm/sec Med Peak E' Jesus: 11.3 cm/sec PA max P.5 mmHg Med E/e': 5.9 Lat Peak E' Jesus: 11.3 cm/sec Lat E/e': 5.9 Procedure A complete two-dimensional transthoracic echocardiogram was performed (2D, M-mode, Doppler and color flow Doppler). The study was technically difficult with many images being suboptimal in quality. Left Ventricle There is mild concentric left ventricular hypertrophy. The left ventricular ejection fraction is norm al. Ejection Fraction = 55-60%. No regional wall motion abnormalities noted. Right Ventricle The right ventricle is normal in size and function. Atria Normal left and right atrial size and function. Mitral Valve There is no mitral regurgitation noted. Tricuspid Valve There is trace tricuspid regurgitation. There was insufficient TR detected to calculate RV systolic p ressure. Aortic Valve No hemodynamically significant valvular aortic stenosis. No aortic regurgitation is present. Pulmonic Valve There is no pulmonic valvular regurgitation. Great Vessels Mild aortic root dilatation. Pericardium/Pleura There is no pericardial effusion. Interpretation Summary The study was technically difficult with many images being suboptimal in quality. There is mild concentric left ventricular hypertrophy. The left ventricular ejection fraction is normal. The right ventricle is normal in size and function. There is trace tricuspid regurgitation. Mild aortic root dilatation. MD Palmer Olmedo 08/26/2018 04:10 PM
[2018-08-26] MEDS ORDERED: chlordiazePOXIDE HCL 25 MG CAPSULE PO SCH (17:00)
[2018-08-26] MEDS: KCL 10 MEQ IVPB 10 MEQ/100 ML INFUS.BAG IVPB SCH ×3 (17:00→21:16)
[2018-08-26] MEDS: chlordiazePOXIDE HCL 25 MG CAPSULE PO SCH ×2 (17:02→21:16)
[2018-08-26] MEDS ORDERED: KCL 10 MEQ IVPB 10 MEQ/100 ML INFUS.BAG IVPB ONE (17:16)
[2018-08-26 19:06] LABS: COCAINE, UR NEGATIVE ng/ml (CUTOFF=300); METHADONE, UR NEGATIVE ng/ml (CUTOFF=300); OPIATES, URI NEGATIVE ng/ml (CUTOFF=300); PHENCYCLIDINE,URINE NEGATIVE ng/ml (CUTOFF=25); URINE AMPHETAMINES NEGATIVE ng/ml (CUTOFF=500); URINE BARBITURATES NEGATIVE ng/ml (CUTOFF=200)
[2018-08-26 19:10] LABS: URINE BENZODIAZEPINES POSITIVE ng/ml (CUTOFF=200)
[2018-08-26] MEDS ORDERED: amLODIPine BESYLATE 5 MG TABLET (FP) ONE (19:24)
--- NOTE | 2018-08-26 19:26 | PN ---
Progress Note, Physician History of Present Illness: 24HR EVENTS -pt admitted for ETOH intoxication -started on librium taper -started on hyzaar and norvasc for BP control - Current Medication List Current Medications: Active Medications Acetaminophen (Tylenol -) 650 mg PO Q4H PRN PRN Reason: PAIN LEVEL 1-5 Amlodipine Besylate (Norvasc -) 5 mg PO DAILY [facility] Aspirin (Ecotrin -) 81 mg PO DAILY [facility] Last Admin: 08/26/18 10:30 Dose: 81 mg Chlordiazepoxide HCl (Librium -) 50 mg PO Q8H [facility] Stop: 08/27/18 05:13 Last Admin: 08/26/18 17:02 Dose: Not Given Chlordiazepoxide HCl (Librium -) 25 mg PO Q12H [facility] Stop: 08/29/18 13:11 Chlordiazepoxide HCl (Librium -) 25 mg PO Q8H [facility] Stop: 08/28/18 05:13 Chlordiazepoxide HCl (Librium -) 25 mg PO Q4H PRN PRN Reason: WITHDRAWAL Chlordiazepoxide HCl (Librium -) 25 mg PO ONCE ONE Stop: 08/26/18 22:01 Folic Acid (Folic Acid -) 1 mg PO DAILY [facility] Last Admin: 08/26/18 10:30 Dose: 1 mg HCTZ/Losartan Potassium (Hyzaar -) 1 tab PO DAILY [facility] Last Admin: 08/26/18 10:30 Dose: 1 tab Heparin Sodium (Porcine) (Heparin -) 5,000 unit SQ TID [facility] Last Admin: 08/26/18 16:30 Dose: 5,000 unit Sodium Chloride (Normal Saline -) 1,000 mls @ 75 mls/hr IV ASDIR [facility] Last Admin: 08/26/18 05:15 Dose: 75 mls/hr Metoclopramide HCl (Reglan Injection -) 10 mg IVPUSH Q8H PRN PRN Reason: NAUSEA AND/OR VOMITING Last Admin: 08/26/18 18:06 Dose: 10 mg Metoprolol Succinate (Toprol Xl -) 25 mg PO DAILY [facility] Last Admin: 08/26/18 11:00 Dose: 25 mg Pantoprazole Sodium (Protonix -) 40 mg PO DAILY [facility] Last Admin: 08/26/18 10:30 Dose: 40 mg Thiamine HCl (Vitamin B1 Injection -) 200 mg IVPB DAILY [facility] Last Admin: 08/26/18 14:09 Dose: 200 mg - Objective Vital Signs: Vital Signs Temperature 98.4 F 08/26/18 18:00 Pulse Rate 85 08/26/18 18:00 Respiratory Rate 18 08/26/18 18:00 Blood Pressure 171/99 H 08/26/18 18:00 O2 Sat by Pulse Oximetry (%) 96 08/26/18 18:00 Constitutional: Yes: Poor Hygeine Eyes: Yes: PERRL HENT: Yes: Atraumatic, Normocephalic Neck: Yes: Supple Cardiovascular: Yes: Tachycardia Respiratory: Yes: Regular Gastrointestinal: Yes: Soft, Abdomen, Obese, Hypoactive Bowel Sounds ...Rectal Exam: Yes: Deferred Breast(s): Yes: WNL Musculoskeletal: Yes: Joint Stiffness, Muscle Weakness Extremities: Yes: Erythema (right foot lateral aspect with redness and excoriation) Edema: Yes Edema: LLE: 1+, RLE: 1+ Peripheral Pulses WNL: Yes Peripheral Pulses: Left Radial: 2+, Right Radial: 2+ Integumentary: Yes: Other Neurological: Yes: Alert, Oriented, Unsteady Gait, Weakness ...Motor Strength: LUE, LLE (4/5 strength), RUE, RLE Psychiatric: Yes: Alert, Oriented Labs: CBC, BMP 08/26/18 06:12 08/26/18 12:25 INR, PTT INR 1.01 (0.83-1.09) 08/26/18 06:12 Problem List - Problems (1) Alcohol withdrawal Assessment/Plan: tele bed frequent neuro checks Librium taper thiamine/MVI/folate daily electrolytes and replete as needed pt will need to be discharged to drug/ETOH rehab Code(s): F10.239 - ALCOHOL DEPENDENCE WITH WITHDRAWAL, UNSPECIFIED (2) Essential hypertension Assessment/Plan: start hyzaar and norvasc for BP control cardiac diet when stable Toprol xl 25mg daily ASA 81mg daily Code(s): I10 - ESSENTIAL (PRIMARY) HYPERTENSION (3) GERD (gastroesophageal reflux disease) Assessment/Plan: Protonix 40mg daily reglan PRN nausea/vomiting Code(s): K21.9 - GASTRO-ESOPHAGEAL REFLUX DISEASE WITHOUT ESOPHAGITIS Qualifiers: Esophagitis presence: esophagitis presence not specified Qualified Code(s) : K21.9 - Gastro-esophageal reflux disease without esophagitis (4) Morbid obesity Assessment/Plan: weight loss strategies to be discussed with patient Code(s): E66.01 - MORBID (SEVERE) OBESITY DUE TO EXCESS CALORIES Impression/Plan Impression/Plan: DISPO: Full code DVT PPX: SC heparin Visit type - Emergency Visit Emergency Visit: Yes ED Registration Date: 08/26/18 Care time: The patient presented to the Emergency Department on the above date and was hospitalized for further evaluation of their emergent condition. - New Patient This patient is new to me today: Yes Date on this admission: 08/26/18 - Critical Care Critical Care patient: No - Discharge Referral Referred to [facility] Med P.C.: No
[2018-08-26] MEDS: amLODIPine BESYLATE 5 MG TABLET (FP) PO SCH ×2 (19:32→22:38)
[2018-08-26] MEDS ORDERED: chlordiazePOXIDE HCL 25 MG CAPSULE PO ONE (22:00)
[2018-08-27 00:45] VITALS: BMI 35.7
[2018-08-27] MEDS: chlordiazePOXIDE HCL 25 MG CAPSULE PO SCH (06:10)
[2018-08-27] MEDS: SODIUM CHLORIDE 1,000 ML IV SCH (06:10)
[2018-08-27] MEDS: HEPARIN NA (PORCINE) 5,000 UNITS/ML 1ML VIAL SQ SCH ×3 (06:11→22:49)
[2018-08-27 07:48] LABS: HEMATOCRIT 29.8 % (35.4-49); HEMOGLOBIN 10.1 GM/dL (11.7-16.9); MCH 28.5 pg (25.7-33.7); MCHC 33.9 g/dl (32.0-35.9); MEAN CELL VOLUME 84.2 fl (80-96); MEAN PLT VOLUME 7.9 fl (7.5-11.1); PLATELET COUNT 187 K/MM3 (134-434); RBC 3.54 M/mm3 (4.00-5.60); RDW 27.4 % (11.9-15.9); WHITE BLOOD COUNT 5.2 K/mm3 (4.0-10.0)
[2018-08-27] MEDS ORDERED: LOSARTAN 50MG/HCTZ 12.5MG 1 TAB (FP) PO SCH (10:00)
[2018-08-27 10:12] LABS: CREATININE 0.4 mg/dL (0.55-1.3)
[2018-08-27 10:13] LABS: CO2 28 mmol/L (21-32)
[2018-08-27 10:14] LABS: ALBUMIN 2.9 g/dl (3.4-5.0)
[2018-08-27 10:18] LABS: POTASSIUM 2.7 mmol/L (3.5-5.1)
--- NOTE | 2018-08-27 10:42 | PN ---
Progress Note (short form) - Note Progress Note: s: no cp sob palps dizzy o: Vital Signs Period Temp Pulse Resp BP Sys/Jang Pulse Ox Last 24 Hr 98 F-99.4 F 82-96 18-23 135-171/76-102 94-96 nad no jvd rrr s1s2 no mrg cta bl nl eff aaox3 trace le edema, no c/c abd nt nd pos bs no jaundice diaphoresis +chest wall tender to palpation Current Medications Generic Name Dose Route Start Last Admin Trade Name Freq PRN Reason Stop Dose Admin Acetaminophen 650 mg 08/26/18 04:55 Tylenol - PO Q4H PRN PAIN LEVEL 1-5 Amlodipine Besylate 5 mg 08/26/18 18:15 08/26/18 22:38 Norvasc - PO 5 mg DAILY [facility] Administration Aspirin 81 mg 08/26/18 10:00 08/26/18 10:30 Ecotrin - PO 81 mg DAILY [facility] Administration Chlordiazepoxide HCl 25 mg 08/28/18 13:12 Librium - PO 08/29/18 13:11 Q12H [facility] Chlordiazepoxide HCl 25 mg 08/27/18 13:12 Librium - PO 08/28/18 05:13 Q8H [facility] Chlordiazepoxide HCl 25 mg 08/26/18 13:44 Librium - PO Q4H PRN WITHDRAWAL Folic Acid 1 mg 08/26/18 10:00 08/26/18 10:30 Folic Acid - PO 1 mg DAILY [facility] Administration HCTZ/Losartan Potassium 2 tab 08/27/18 10:00 Hyzaar - PO DAILY [facility] Heparin Sodium (Porcine) 5,000 unit 08/26/18 06:00 08/27/18 06:11 Heparin - SQ 5,000 unit TID [facility] Administration Sodium Chloride 1,000 mls @ 75 mls/hr 08/26/18 05:15 08/27/18 06:10 Normal Saline - IV 75 mls/hr ASDIR [facility] Administration Metoclopramide HCl 10 mg 08/26/18 11:47 08/26/18 18:06 Reglan Injection - IVPUSH 10 mg Q8H PRN Administration NAUSEA AND/OR VOMITING Metoprolol Succinate 25 mg 08/26/18 10:30 08/26/18 11:00 Toprol Xl - PO 25 mg DAILY [facility] Administration Pantoprazole Sodium 40 mg 08/26/18 10:00 08/26/18 10:30 Protonix - PO 40 mg DAILY [facility] Administration Thiamine HCl 200 mg 08/26/18 10:00 08/26/18 14:09 Vitamin B1 Injection - IVPB 200 mg DAILY [facility] Administration CBC, BMP 08/27/18 06:25 08/27/18 06:25 echo 07/2015: nl lv/rv, no sig valve abn, mild ao root dil echo 08/2018: lvh, nl lvef, nl rv, no sig valve path, mild ao root dil cxr: no chf ecg: afib, rvr, no ischemic changes tele: sr a/p: 63 m hx etoh abuse, htn, mesothelioma, here with body aches. body aches, cp, borderline trops: -atypical cp, reproducible on exam. -does not seem cardiac, seems msk related. -trop borderline elevation with flat trend, not c/w acs. echo unremarkable. new afib, rvr: -presented with new afib and rvr, now in SR -started toprol 25 qd -chadsvasc is 1 (htn) so has indication for AC, but given his etoh abuse and frequent falls he is not a safe candidate for AC at this time. Cont asa 81. -echo unremarkable htn: -cont current meds cardiac flores stable
[2018-08-27 10:43] LABS: ALK PHOS 158 U/L (45-117); ANION GAP 9 MMOL/L (8-16); BILIRUBIN,TOTAL 1.5 mg/dL (0.2-1); BLOOD UREA NITROGEN 5 mg/dL (7-18); CALCIUM 8.2 mg/dL (8.5-10.1); CHLORIDE 100 mmol/L (98-107); GLUCOSE,RANDOM 83 mg/dL (74-106); MAGNESIUM 1.5 mg/dL (1.8-2.4); PHOSPHOROUS 2.8 mg/dL (2.5-4.9); SGOT/AST 25 U/L (15-37); SGPT/ALT 21 U/L (13-61); SODIUM 137 mmol/L (136-145); TOT PROT 6.1 g/dl (6.4-8.2)
[2018-08-27] MEDS ORDERED: MAGNESIUM SULF 50% (8.12 MEQ/2 ML-1 GM VIAL) IVPB ONE (11:30)
[2018-08-27] MEDS ORDERED: MAGNESIUM OXIDE 400 MG TABLET (FP) PO ONE (11:30)
[2018-08-27] MEDS: FOLIC ACID 1 MG TABLET (FP) PO SCH (11:30)
[2018-08-27] MEDS: metoPROLOL SUCCINATE 25 MG TAB.SR.24H (FP) PO SCH (11:30)
[2018-08-27] MEDS: PANTOPRAZOLE 40 MG TABLET (FP) PO SCH (11:31)
[2018-08-27] MEDS: POTASSIUM CHLORIDE ORAL LIQUID 20 MEQ/15 ML PO ONE ×2 (11:31→16:21)
[2018-08-27] MEDS: amLODIPine BESYLATE 5 MG TABLET (FP) PO SCH (11:31)
[2018-08-27] MEDS: ASPIRIN COATED 81 MG TABLET.EC PO SCH (11:31)
[2018-08-27] MEDS ORDERED: FOLIC ACID INJECTION - 1 MG, THIAMINE HCL 100 MG, MULTIVIT INJECTION ADULT 10 ML in SOD... IVPB ONE (12:00)
[2018-08-27] MEDS ORDERED: chlordiazePOXIDE HCL 25 MG CAPSULE PO SCH ×3 (13:12→13:45)
[2018-08-27] MEDS: KCL 10 MEQ IVPB 10 MEQ/100 ML INFUS.BAG IVPB SCH ×3 (13:28→18:29)
--- NOTE | 2018-08-27 14:07 | PN ---
Progress Note (short form) - Note Progress Note: refused to speak with me today Current Medications Generic Name Dose Route Start Last Admin Trade Name Francisco Javier PRN Reason Stop Dose Admin Acetaminophen 650 mg 08/26/18 04:55 Tylenol - PO Q4H PRN PAIN LEVEL 1-5 Amlodipine Besylate 5 mg 08/26/18 18:15 08/27/18 11:31 Norvasc - PO 5 mg DAILY [facility] Administration Aspirin 81 mg 08/26/18 10:00 08/27/18 11:31 Ecotrin - PO 81 mg DAILY [facility] Administration Chlordiazepoxide HCl 25 mg 08/28/18 13:12 Librium - PO 08/29/18 13:11 Q12H [facility] Chlordiazepoxide HCl 25 mg 08/27/18 13:12 08/27/18 13:27 Librium - PO 08/28/18 05:13 25 mg Q8H [facility] Administration Chlordiazepoxide HCl 25 mg 08/26/18 13:44 Librium - PO Q4H PRN WITHDRAWAL Folic Acid 1 mg 08/26/18 10:00 08/27/18 11:30 Folic Acid - PO 1 mg DAILY [facility] Administration Heparin Sodium (Porcine) 5,000 unit 08/26/18 06:00 08/27/18 06:11 Heparin - SQ 5,000 unit TID [facility] Administration Sodium Chloride 1,000 mls @ 75 mls/hr 08/26/18 05:15 08/27/18 06:10 Normal Saline - IV 75 mls/hr ASDIR [facility] Administration Folic Acid 1 mg/ Thiamine HCl 1,000 mls @ 125 mls/hr 08/27/18 12:00 100 mg/ Multivitamins/Minerals IVPB 08/27/18 19:59 10 ml/ Sodium Chloride ONCE ONE Potassium Chloride 10 meq in 100 mls @ 100 mls/hr 08/27/18 11:15 08/27/18 13: 28 Potassium Chloride 10 Meq Premix Ivpb - IVPB 08/27/18 14:14 100 mls/hr Q60M [facility] Administration Metoclopramide HCl 10 mg 08/26/18 11:47 08/26/18 18:06 Reglan Injection - IVPUSH 10 mg Q8H PRN Administration NAUSEA AND/OR VOMITING Metoprolol Succinate 25 mg 08/26/18 10:30 08/27/18 11:30 Toprol Xl - PO 25 mg DAILY [facility] Administration Pantoprazole Sodium 40 mg 08/26/18 10:00 08/27/18 11:31 Protonix - PO 40 mg DAILY [facility] Administration Thiamine HCl 200 mg 08/26/18 10:00 08/26/18 14:09 Vitamin B1 Injection - IVPB 200 mg DAILY [facility] Administration Last Vital Signs Temp Pulse Resp BP Pulse Ox 98 F 86 20 107/52 L 96 08/27/18 10:00 08/27/18 10:00 08/27/18 10:00 08/27/18 10:00 08/26/18 21:00 General NAD REfused physical exam CBCD WBC 5.2 K/mm3 (4.0-10.0) 08/27/18 06:25 RBC 3.54 M/mm3 (4.00-5.60) L 08/27/18 06:25 Hgb 10.1 GM/dL (11.7-16.9) L 08/27/18 06:25 Hct 29.8 % (35.4-49) L 08/27/18 06:25 MCV 84.2 fl (80-96) 08/27/18 06:25 MCHC 33.9 g/dl (32.0-35.9) 08/27/18 06:25 RDW 27.4 % (11.9-15.9) H 08/27/18 06:25 Plt Count 187 K/MM3 (134-434) 08/27/18 06:25 MPV 7.9 fl (7.5-11.1) D 08/27/18 06:25 CMP Sodium 137 mmol/L (136-145) 08/27/18 06:25 Potassium 2.7 mmol/L (3.5-5.1) L* 08/27/18 06:25 Chloride 100 mmol/L (98-107) 08/27/18 06:25 Carbon Dioxide 28 mmol/L (21-32) 08/27/18 06:25 Anion Gap 9 MMOL/L (8-16) 08/27/18 06:25 BUN 5 mg/dL (7-18) L 08/27/18 06:25 Creatinine 0.4 mg/dL (0.55-1.3) L 08/27/18 06:25 Creat Clearance w eGFR 217.26 (>60) 08/27/18 06:25 Calcium 8.2 mg/dL (8.5-10.1) L 08/27/18 06:25 Total Bilirubin 1.5 mg/dL (0.2-1) H 08/27/18 06:25 AST 25 U/L (15-37) 08/27/18 06:25 ALT 21 U/L (13-61) 08/27/18 06:25 Alkaline Phosphatase 158 U/L (45-117) H 08/27/18 06:25 Total Protein 6.1 g/dl (6.4-8.2) L 08/27/18 06:25 Albumin 2.9 g/dl (3.4-5.0) L 08/27/18 06:25 A/P 63yo M [facility] PMH continuous ETOH dependence, HTN, mesothelioma arrived in [facility] ER with swelling. 1. New onset afib with RVR- currently in sinus rhythm. cont rate control with metoprolo. CHADSvasc 1. on asa. would not anticoagulate as pt is chronic alcoholic and has high risk of falls 2. Hypokalemia-KCL IV and po. repeat 3. Hypomagnesemia- Mg IV and po. repeat 4. Continuous ETOH abuse- CIWA appears low as pt appears comfortable.refuses to answer my questioning at this time. will d/c librium at this time and evaluate if pt begins to withdrawal. pt is not interested in inpatient rehab or detox. and has refused [facility] repeatedly. will give banana bag 5. HTN- would avoid diuretics in this patient with poor electolytes. hold at this time 6. DVT ppx- hep sq 7. plan for patient to return to custodial when electrolytes are stable Visit type - Emergency Visit Emergency Visit: Yes ED Registration Date: 08/26/18 Care time: The patient presented to the Emergency Department on the above date and was hospitalized for further evaluation of their emergent condition. - New Patient This patient is new to me today: Yes Date on this admission: 08/27/18 - Critical Care Critical Care patient: No - Discharge Referral Referred to [facility] Med P.C.: No
[2018-08-27] MEDS: THIAMINE HCL 200 MG/2 ML VIAL IVPB SCH (18:31)
[2018-08-27 19:43] LABS: ANION GAP 10 MMOL/L (8-16); BLOOD UREA NITROGEN 5 mg/dL (7-18); CALCIUM 8.5 mg/dL (8.5-10.1); CHLORIDE 102 mmol/L (98-107); CO2 29 mmol/L (21-32); CREATININE 0.6 mg/dL (0.55-1.3); GLUCOSE,RANDOM 93 mg/dL (74-106); SODIUM 140 mmol/L (136-145)
[2018-08-28 06:17] VITALS: BP 120/67; PULSE 81; TEMP 98.2
[2018-08-28] MEDS: HEPARIN NA (PORCINE) 5,000 UNITS/ML 1ML VIAL SQ SCH (06:17)
[2018-08-28 07:43] LABS: ANION GAP 9 MMOL/L (8-16); BLOOD UREA NITROGEN 7 mg/dL (7-18); CALCIUM 8.4 mg/dL (8.5-10.1); CHLORIDE 101 mmol/L (98-107); CO2 28 mmol/L (21-32); CREATININE 0.5 mg/dL (0.55-1.3); GLUCOSE,RANDOM 91 mg/dL (74-106); MAGNESIUM 1.8 mg/dL (1.8-2.4); SODIUM 138 mmol/L (136-145)
[2018-08-28 08:09] LABS: POTASSIUM 2.7 mmol/L (3.5-5.1)
--- NOTE | 2018-08-28 10:08 | PN ---
Progress Note, Physician Chief Complaint: back pain History of Present Illness: low back still hurting. denies cp or sob. 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 - Current Medication List Current Medications: Active Medications Acetaminophen (Tylenol -) 650 mg PO Q4H PRN PRN Reason: PAIN LEVEL 1-5 Amlodipine Besylate (Norvasc -) 5 mg PO DAILY [facility] Last Admin: 08/27/18 11:31 Dose: 5 mg Aspirin (Ecotrin -) 81 mg PO DAILY [facility] Last Admin: 08/27/18 11:31 Dose: 81 mg Folic Acid (Folic Acid -) 1 mg PO DAILY [facility] Last Admin: 08/27/18 11:30 Dose: 1 mg Heparin Sodium (Porcine) (Heparin -) 5,000 unit SQ TID [facility] Last Admin: 08/28/18 06:17 Dose: Not Given Sodium Chloride (Normal Saline -) 1,000 mls @ 75 mls/hr IV ASDIR [facility] Last Admin: 08/27/18 06:10 Dose: 75 mls/hr Metoclopramide HCl (Reglan Injection -) 10 mg IVPUSH Q8H PRN PRN Reason: NAUSEA AND/OR VOMITING Last Admin: 08/26/18 18:06 Dose: 10 mg Metoprolol Succinate (Toprol Xl -) 25 mg PO DAILY [facility] Last Admin: 08/27/18 11:30 Dose: 25 mg Pantoprazole Sodium (Protonix -) 40 mg PO DAILY [facility] Last Admin: 08/27/18 11:31 Dose: 40 mg Thiamine HCl (Vitamin B1 Injection -) 200 mg IVPB DAILY [facility] Last Admin: 08/27/18 18:31 Dose: Not Given - Objective Vital Signs: Vital Signs Temperature 98.2 F 08/28/18 06:00 Pulse Rate 81 08/28/18 06:00 Respiratory Rate 18 08/28/18 06:00 Blood Pressure 120/67 08/28/18 06:00 O2 Sat by Pulse Oximetry (%) 97 08/27/18 21:00 Constitutional: Yes: Well Nourished, No Distress, Calm Cardiovascular: Yes: Regular Rate and Rhythm, S1, S2. No: Gallop, Murmur Respiratory: Yes: Regular, CTA Bilaterally. No: Accessory Muscle Use, Rales, Wheezes Extremities: No: Cold Edema: No Neurological: Yes: Alert, Oriented Psychiatric: No: Agitated Labs: CBC, BMP 08/27/18 06:25 08/28/18 06:35 INR, PTT INR 1.01 (0.83-1.09) 08/26/18 06:12 Assessment/Plan echo 07/2015: nl lv/rv, no sig valve abn, mild ao root dil echo 08/2018: lvh, nl lvef, nl rv, no sig valve path, mild ao root dil cxr: no chf ecg: afib, rvr, no ischemic changes tele: NSR, artifact with very small amplitude QRSs much of the time, + PVCs ( no VT). no afib seen. a/p: 63 m hx etoh abuse, htn, mesothelioma, here with body aches. body aches/back pain, cp, borderline trops: -atypical cp, reproducible on exam. -mskel pains likely here--per hospitalist -trop indeterminate range with flat trend, not c/w acs. ecg nonischemic. -echo unremarkable. new afib, rvr: -presented with new afib and rvr, now in SR -started toprol 25 qd -chadsvasc is 1 (htn) so has indication for AC, but given his etoh abuse and frequent falls he is not a safe candidate for AC at this time. Cont asa 81. -echo unremarkable -outpt cardio f/u rec'd (d/w'd pt as well the reason for this) htn: -mostly controlled at present -cont current meds D/C TELEMETRY
[2018-08-28] MEDS: FOLIC ACID 1 MG TABLET (FP) PO SCH (10:48)
[2018-08-28] MEDS: PANTOPRAZOLE 40 MG TABLET (FP) PO SCH (10:48)
[2018-08-28] MEDS: metoPROLOL SUCCINATE 25 MG TAB.SR.24H (FP) PO SCH (10:48)
[2018-08-28] MEDS: amLODIPine BESYLATE 5 MG TABLET (FP) PO SCH (10:48)
[2018-08-28] MEDS: SODIUM CHLORIDE 1,000 ML IV SCH (10:49)
[2018-08-28] MEDS: THIAMINE HCL 200 MG/2 ML VIAL IVPB SCH (10:49)
[2018-08-28] MEDS: ASPIRIN COATED 81 MG TABLET.EC PO SCH (10:49)
[2018-08-28] MEDS ORDERED: chlordiazePOXIDE HCL 25 MG CAPSULE PO SCH (13:12)
--- NOTE | 2018-08-28 14:26 | DS ---
Physical Exam: SUBJECTIVE: Patient seen and examined OBJECTIVE: Vital Signs Period Temp Pulse Resp BP Sys/Jang Pulse Ox Last 24 Hr 98.0 F-98.2 F 81-92 18-20 120-149/67-90 97 PHYSICAL EXAM GENERAL: The patient is awake, alert, and fully oriented, in no acute distress. HEAD: Normal with no signs of trauma. EYES: PERRL, extraocular movements intact, sclera anicteric, conjunctiva clear. ENT: Ears normal, nares patent, oropharynx clear without exudates, moist mucous membranes. NECK: Trachea midline, full range of motion, supple. LUNGS: Breath sounds equal, clear to auscultation bilaterally, no wheezes, no crackles, no accessory muscle use. HEART: Regular rate and rhythm, S1, S2 without murmur, rub or gallop. ABDOMEN: Soft, nontender, nondistended, normoactive bowel sounds, no guarding, no rebound, no hepatosplenomegaly, no masses. EXTREMITIES: 2+ pulses, warm, well-perfused, no edema. NEUROLOGICAL: Cranial nerves II through XII grossly intact. Normal speech, gait not observed. PSYCH: Normal mood, normal affect. SKIN: Warm, dry, normal turgor, no rashes or lesions noted. LABS Laboratory Results - last 24 hr 08/27/18 08/28/18 18:00 06:35 Sodium 140 138 Potassium 3.0 L 2.7 L* Chloride 102 101 Carbon Dioxide 29 28 Anion Gap 10 9 BUN 5 L 7 Creatinine 0.6 0.5 L Creat Clearance w eGFR 136.08 167.94 Random Glucose 93 91 Calcium 8.5 8.4 L Magnesium 2.0 1.8 HOSPITAL COURSE: Date of Admission:08/26/18 Date of Discharge: 08/28/18 Minutes to complete discharge: 30 Discharge Summary Reason For Visit: ATRIAL FIBRILLATION WITH RAPID VENTRULAR Current Active Problems Obesity (BMI 30-39.9) (Chronic) Ulcer of left foot (Chronic) Back pain (Chronic) Atrial fibrillation with RVR (Acute) Alcohol withdrawal (Acute) Alcohol intoxication (Acute) Right hand pain (Chronic) Lactic acid blood increased (Acute) GERD (gastroesophageal reflux disease) (Chronic) Prolonged Q-T interval on ECG (Chronic) Mesothelioma (pleural) (Chronic) HTN (hypertension) (Chronic) Hypokalemia (Chronic) Benzodiazepine abuse (Chronic) Alcohol abuse (Chronic) Hypomagnesemia (Chronic) Homelessness (Chronic) Iron deficiency anemia, unspecified (Chronic) Humeral head fracture (Chronic) Hospital Course: This is a 63 year old man with a history of HTN, alcohol abuse, and mesothelioma who presented to the ED on August 25 with alcohol intoxication and swelling of his legs and arms. In the ED, he was found to be in atrial fibrillation. He had a potassium of 2.9 and lactic acid 2.4. He was treated with IV normal saline with KCl. He was admitted to telemetry. His heart rate improved, and he converted to sinus rhythm. Troponin increased to 0.13. He was seen by Dr. Olmedo. It as felt that the elevated troponin was demand ischemia caused by atrial fib with RVR. Anticoagulation was not indicated because he had a low [id number] score and a high risk of falling related to alcohol abuse. He was started on Librium detox, thiamine, multivitamin, folic acid. He was given potassium and magnesium supplementation. He refused inpatient alcohol detox. He refused to wear a case monitor. He refused further potassium supplementation. He decided to sign out against medical advice. He was counselled on the risks of leaving with a low potassium of 2.7 but he refused further treatment and is leaving against medical advice on August 28. Condition: Guarded - Instructions Disposition: AGAINST MEDICAL ADVICE - Home Medications Comprehensive Discharge Medication List: Ambulatory Orders NK [No Known Home Medication] 08/14/18 This patient is new to me today: Yes Date on this admission: 08/28/18 Emergency Visit: Yes ED Registration Date: 08/26/18 Care time: The patient presented to the Emergency Department on the above date and was hospitalized for further evaluation of their emergent condition. Critical Care patient: No - Discharge Referral Referred to [facility] Med P.C.: No
[2018-08-29] MEDS ORDERED: chlordiazePOXIDE HCL 25 MG CAPSULE PO ONE (20:00)
== END 2018-08-28 16:32 | disposition left against medical advice (07) | DRG 201 ==
LOC: JER 19:48 → JERBED 08-26 01:28 → J4W 08-26 20:28
PROVIDERS: ADMIT Internal Medicine; ATTEND Internal Medicine
DX: I48.91 Unspecified atrial fibrillation (principal); F10.220 Alcohol dependence with intoxication, uncomplicated; E87.6 Hypokalemia; E87.2 Acidosis; E83.42 Hypomagnesemia; E88.09 Other disorders of plasma-protein metabolism, not elsewhere classified; E66.01 Morbid (severe) obesity due to excess calories; Z68.37 Body mass index [BMI] 37.0-37.9, adult; I10 Essential (primary) hypertension; F10.20 Alcohol dependence, uncomplicated; M54.9 Dorsalgia, unspecified; D50.9 Iron deficiency anemia, unspecified; C45.9 Mesothelioma, unspecified; K21.9 Gastro-esophageal reflux disease without esophagitis; R29.6 Repeated falls
CPT/HCPCS: 36415; 71045-TC-FY; 76700-TC; 80048; 80053; 80061; 80307; 81003; 82140; 82550; 82553; 82803; 83036; 83605; 83721; 83735; 83880; 84100; 84443; 84484; 85025; 85027; 85610; 85730; 87040; 87086; 93005; 93010; 93306-TC; 99285-25; J1644; J7030

== ENCOUNTER 2018-08-29 18:19 | Emergency (ER) | payer OTHER ==
[2018-08-29 18:26] VITALS: BMI 34.9
[2018-08-29] MEDS ORDERED: ACETAMINOPHEN 500 MG TABLET (FP) PO ONE (22:10)
[2018-08-29] MEDS ORDERED: METHOCARBAMOL 500 MG TABLET PO ONE (22:10)
[2018-08-29] MEDS ORDERED: METHOCARBAMOL 500 MG TABLET ONE (22:31)
[2018-08-29] MEDS ORDERED: ACETAMINOPHEN 325 MG TABLET (FP) ONE (22:31)
--- NOTE | 2018-08-29 22:35 | PDOC ---
History of Present Illness - General Chief Complaint: Alcohol intoxication Stated Complaint: INTOXICATION History Source: Patient Exam Limitations: No Limitations - History of Present Illness Initial Comments: 08/29/18 22:11 Patient is a 62-year-old male well known to this hospital, h/o chronic EtOH abuse, mestothelioma, HTN, Fracture shoulder, DVT, brought in by EMS for alcohol intoxication. Patient complains of lower back pain states due to a fall 2 month ago. States that the pain is 9/10, sharp, which is worse with movement. PMHX: as above PSOCHX: (+) etoh, (-) cig, (-) drug ALL: NKDA GENERAL/CONSTITUTIONAL: No fever or chills. No weakness. No weight change. HEAD, EYES, EARS, NOSE AND THROAT: No change in vision. No ear pain or discharge. No sore throat. CARDIOVASCULAR: No chest pain or shortness of breath. RESPIRATORY: No cough, wheezing, or hemoptysis. GASTROINTESTINAL: No nausea, vomiting, diarrhea or constipation. No rectal bleeding. GENITOURINARY: No dysuria, frequency, or change in urination. MUSCULOSKELETAL: (+) joint or muscle swelling or pain. No neck (+) back pain. SKIN AND BREASTS: No rash or easy bruising. NEUROLOGIC: No headache, vertigo, loss of consciousness, or loss of sensation. PSYCHIATRIC: No depression or anxiety. ENDOCRINE: No increased thirst. No abnormal weight change. HEMATOLOGIC/LYMPHATIC: No anemia, easy bleeding, or history of blood clots. ALLERGIC/IMMUNOLOGIC: No hives or skin allergy. No latex allergy. GENERAL: The patient is awake, alert, and fully oriented, in no acute distress. HEAD: Normal with no signs of trauma. EYES: Pupils equal, round and reactive to light, extraocular movements intact, sclera anicteric, conjunctiva clear. ENT: Ears normal, nares patent, oropharynx clear without exudates. Moist mucous membranes, AOB NECK: Normal range of motion, supple without lymphadenopathy, JVD, or masses. LUNGS: Breath sounds equal, clear to auscultation bilaterally. No wheezes, and no crackles. HEART: Regular rate and rhythm, normal S1 and S2 without murmur, rub. ABDOMEN: Soft, nontender, normoactive bowel sounds. No guarding, no rebound. No masses. BACK: Tenderness midline lumbar spine EXTREMITIES: Normal range of motion, no edema. No clubbing or cyanosis. No cords, erythema, or tenderness. NEUROLOGICAL: Cranial nerves II through XII grossly intact. Normal speech, normal gait. PSYCH: Normal mood, normal affect. SKIN: Warm, Dry, normal turgor, no rashes or lesions noted. Past History - Past Medical History Allergies/Adverse Reactions: Allergies Allergy/AdvReac Type Severity Reaction Status Date / Time Fish Containing Products Allergy Mild Swelling Verified 08/29/18 18:26 No Known Drug Allergies Allergy Verified 08/29/18 18:26 Home Medications: Ambulatory Orders NK [No Known Home Medication] 08/14/18 Anemia: No Asthma: No Cancer: Yes (mesothelioma lung cancer) Cardiac Disorders: No CVA: No COPD: No CHF: No DVT: No Dementia: No Diabetes: No GI Disorders: No Disorders: No HTN: Yes (non compliance) Hypercholesterolemia: No Kidney Stones: No Liver Disease: No Psychiatric Problems: Yes (etoh) Seizures: No Thyroid Disease: No - Surgical History Abdominal Surgery: No Appendectomy: No Cardiac Surgery: No Cholecystectomy: No Lung Surgery: No Neurologic Surgery: No Orthopedic Surgery: No - Family Disease History Family Disease History: CA: Mother - Reproductive History Testicular Surgery: No - Immunization History TDAP Vaccination: Yes Immunization Up to Date: Yes - Suicide/Smoking/Psychosocial Hx Smoking Status: No Smoking History: Never smoked Have you smoked in the past 12 months: No Number of Cigarettes Smoked Daily: 0 If you are a former smoker, when did you quit?: 0 Cigars Per Day: 0 'Breaking Loose' booklet given: 09/22/17 Hx Alcohol Use: Yes Drug/Substance Use Hx: No Substance Use Type: Alcohol Hx Substance Use Treatment: Yes ([facility] 04/05/18 to 04/08/18) *Physical Exam - Vital Signs Last Vital Signs Temp Pulse Resp BP Pulse Ox 97 F L 86 18 126/52 L 99 08/29/18 18:20 08/29/18 18:20 08/29/18 18:20 08/29/18 18:20 08/29/18 18:20 Moderate Sedation - Procedure Monitoring Vital Signs: Procedure Monitoring Vital Signs Temperature 97 F L 08/29/18 18:20 Pulse Rate 86 08/29/18 18:20 Respiratory Rate 18 08/29/18 18:20 Blood Pressure 126/52 L 08/29/18 18:20 O2 Sat by Pulse Oximetry (%) 99 08/29/18 18:20 Medical Decision Making - Medical Decision Making 08/29/18 22:11 Patient is a 62-year-old male well known to this hospital, h/o chronic EtOH abuse, mestothelioma, HTN, Fracture shoulder, DVT, brought in by EMS for alcohol intoxication. Patient complains of lower back pain states due to a fall 2 month ago. States that the pain is 9/10, sharp, which is worse with movement. tylenol and robaxin pending sobriety I discussed the physical exam findings, ancillary test results and final diagnoses with the patient. I answered all of the patient's questions. The patient was satisfied with the care received and felt comfortable with the discharge plan and treatment plan. The Patient agrees to follow up with the primary care physician within 24-72 hours. *DC/Admit/Observation/Transfer Diagnosis at time of Disposition: Alcohol intoxication Qualifiers: Complication of substance-induced condition: uncomplicated Qualified Code(s): F10.920 - Alcohol use, unspecified with intoxication, uncomplicated Back pain Qualifiers: Back pain location: low back pain Chronicity: chronic Back pain laterality: midline Sciatica presence: without sciatica Qualified Code(s): M54.5 - Low back pain - Discharge Dispostion Disposition: HOME Condition at time of disposition: Stable - Referrals Referrals: [facility] [place] [facility] [place] [Provider Group] - Patient Instructions Printed Discharge Instructions: DI for Low Back Pain Additional Instructions: Your Discharge Instructions: You must call primary care physician within 24 hours to arrange follow-up. Return to the Emergency Department with any new, persistent or worsening symptoms, for fever, chills, SOB, dizziness or any other concerning changes that may occur. - Post Discharge Activity
[2018-08-30 06:47] VITALS: BP 136/81; PULSE 87; TEMP 97.6
== END 2018-08-30 07:17 | disposition home or self-care (01) ==
LOC: JER 18:19
DX: F10.220 Alcohol dependence with intoxication, uncomplicated (principal); M54.5 Low back pain; Z91.81 History of falling
CPT/HCPCS: 99282-25

== ENCOUNTER 2018-08-31 17:05 | Emergency (ER) | payer OTHER | END 2018-08-31 20:06 | disposition left against medical advice (07) | LOC: JER 17:05 ==

== ENCOUNTER 2018-09-06 01:34 | Emergency (ER) | payer OTHER ==
[2018-09-06 03:24] VITALS: BMI 33.0
[2018-09-06 06:33] VITALS: BP 131/75; PULSE 86; TEMP 98.1
--- NOTE | 2018-09-06 07:58 | PDOC ---
History of Present Illness - General Chief Complaint: Back Pain Stated Complaint: BACK PAIN Time Seen by Provider: 09/06/18 07:33 History Source: Patient Exam Limitations: No Limitations, Intoxication (mild) - History of Present Illness Initial Comments: 09/06/18 07:52 63-year-old male presents to ED with initial complaints of low back pain which she has had for approximately 3 years. Patient upon my arrival has no complaints was found sleeping in the waiting area requesting transportation home. Patient currently denies chest pain, headache, dizziness, nausea, shortness of breath abdominal pain, or neck pain. Patient denies any incontinence saddle anesthesia or weakness of the lower extremities. Timing/Duration: other Severity: mild Associated Symptoms: reports: denies symptoms Past History - Travel Traveled outside of the country in the last 30 days: No - Past Medical History Allergies/Adverse Reactions: Allergies Allergy/AdvReac Type Severity Reaction Status Date / Time Fish Containing Products Allergy Mild Swelling Verified 09/06/18 03:24 No Known Drug Allergies Allergy Verified 09/06/18 03:24 Home Medications: Ambulatory Orders NK [No Known Home Medication] 08/14/18 Anemia: No Asthma: No Cancer: Yes (mesothelioma lung cancer) Cardiac Disorders: No CVA: No COPD: No CHF: No DVT: No Dementia: No Diabetes: No GI Disorders: No Disorders: No HTN: Yes (non compliance) Hypercholesterolemia: No Kidney Stones: No Liver Disease: No Psychiatric Problems: Yes (etoh) Seizures: No Thyroid Disease: No - Surgical History Abdominal Surgery: No Appendectomy: No Cardiac Surgery: No Cholecystectomy: No Lung Surgery: No Neurologic Surgery: No Orthopedic Surgery: No - Family Disease History Family Disease History: CA: Mother - Reproductive History Testicular Surgery: No - Immunization History TDAP Vaccination: Yes Immunization Up to Date: Yes - Suicide/Smoking/Psychosocial Hx Smoking Status: No Smoking History: Never smoked Have you smoked in the past 12 months: No Number of Cigarettes Smoked Daily: 0 If you are a former smoker, when did you quit?: 0 Cigars Per Day: 0 Information on smoking cessation initiated: No 'Breaking Loose' booklet given: 09/22/17 Hx Alcohol Use: Yes Drug/Substance Use Hx: No Substance Use Type: Alcohol Hx Substance Use Treatment: Yes ([facility] 04/05/18 to 04/08/18) Patient Lives Alone: No Lives with/in: parents Review of Systems - Review of Systems Able to Perform ROS?: No Is the patient limited Maori proficient: No Constitutional: No: Symptoms Reported HEENTM: No: Symptoms Reported Respiratory: No: Symptoms reported Cardiac (ROS): No: Symptoms Reported ABD/GI: No: Symptoms Reported : No: Symptoms Reported Musculoskeletal: Yes: Back Pain (low back pain) Integumentary: No: Symptoms Reported Neurological: No: Symptoms reported Endocrine: No: Symptoms Reported Hematologic/Lymphatic: No: Symptoms Reported *Physical Exam - Vital Signs Last Vital Signs Temp Pulse Resp BP Pulse Ox 98.1 F 86 18 131/75 98 09/06/18 06:26 09/06/18 06:26 09/06/18 06:26 09/06/18 06:26 09/06/18 06:26 - Physical Exam General Appearance: Yes: Nourished, Disheveled, Alcohol on Breath. No: Apparent Distress HEENT: positive: DOUGLAS. negative: Pale Conjunctivae Respiratory/Chest: positive: Lungs Clear, Normal Breath Sounds. negative: Respiratory Distress, Accessory Muscle Use Cardiovascular: positive: Regular Rhythm, Regular Rate. negative: Murmur Gastrointestinal/Abdominal: positive: Soft. negative: Tenderness Musculoskeletal: negative: Vertebral Tenderness Extremity: positive: Normal Inspection Integumentary: positive: Warm Neurologic: positive: Normal Mood/Affect, Motor Strength 5/5 (ambulatory) Medical Decision Making - Medical Decision Making 09/06/18 07:56 CC: LBP stated in triage. Pt states has had LBP x 3 yrs w/out change in presentation worse with ambulation. Pt denies presently upon my arrival Exam: NO midline tenderness, pt is ambulatory in the ED requesting medicaid transportation Plan: Discharge home *DC/Admit/Observation/Transfer Diagnosis at time of Disposition: Low back pain - Discharge Dispostion Disposition: HOME Condition at time of disposition: Good - Referrals - Patient Instructions Printed Discharge Instructions: DI for Low Back Pain Additional Instructions: Please avoid movements which trigger discomfort. Use proper body mechanics when bending over - Post Discharge Activity
== END 2018-09-06 10:05 | disposition home or self-care (01) ==
LOC: JER 01:34
DX: M54.5 Low back pain (principal); I10 Essential (primary) hypertension; C45.9 Mesothelioma, unspecified; Z59.0 Homelessness
CPT/HCPCS: 99282-25

== ENCOUNTER 2018-09-06 20:41 | Emergency (ER) | payer OTHER ==
[2018-09-06 20:51] VITALS: BP 139/74; PULSE 85; TEMP 98.9; BMI 35.5
--- NOTE | 2018-09-06 21:30 | PDOC ---
History of Present Illness - General Chief Complaint: Back Pain Stated Complaint: BACK PAIN Time Seen by Provider: 09/06/18 21:20 - History of Present Illness Initial Comments: 09/06/18 21:27 63-year-old male presents for evaluation of lower back pain he also states he needs a place to stay and a meal he states she's had back pain for a number of years without any change Past History - Past Medical History Allergies/Adverse Reactions: Allergies Allergy/AdvReac Type Severity Reaction Status Date / Time Fish Containing Products Allergy Mild Swelling Verified 09/06/18 20:51 No Known Drug Allergies Allergy Verified 09/06/18 20:51 Home Medications: Ambulatory Orders NK [No Known Home Medication] 08/14/18 Anemia: No Asthma: No Cancer: Yes (mesothelioma lung cancer) Cardiac Disorders: No CVA: No COPD: No CHF: No DVT: No Dementia: No Diabetes: No GI Disorders: No Disorders: No HTN: Yes (non compliance) Hypercholesterolemia: No Kidney Stones: No Liver Disease: No Psychiatric Problems: Yes (etoh) Seizures: No Thyroid Disease: No - Surgical History Abdominal Surgery: No Appendectomy: No Cardiac Surgery: No Cholecystectomy: No Lung Surgery: No Neurologic Surgery: No Orthopedic Surgery: No - Family Disease History Family Disease History: CA: Mother - Reproductive History Testicular Surgery: No - Immunization History TDAP Vaccination: Yes Immunization Up to Date: Yes - Suicide/Smoking/Psychosocial Hx Smoking Status: No Smoking History: Never smoked Have you smoked in the past 12 months: No Number of Cigarettes Smoked Daily: 0 If you are a former smoker, when did you quit?: 0 Cigars Per Day: 0 Information on smoking cessation initiated: No 'Breaking Loose' booklet given: 09/22/17 Hx Alcohol Use: Yes Drug/Substance Use Hx: No Substance Use Type: Alcohol Hx Substance Use Treatment: Yes ([facility] 04/05/18 to 04/08/18) Review of Systems - Review of Systems Musculoskeletal: Yes: Back Pain *Physical Exam - Vital Signs Last Vital Signs Temp Pulse Resp BP Pulse Ox 98.9 F 85 24 H 139/74 95 09/06/18 20:47 09/06/18 20:47 09/06/18 20:47 09/06/18 20:47 09/06/18 20:47 - Physical Exam General Appearance: Yes: Disheveled HEENT: positive: EOMI Neck: positive: Supple Respiratory/Chest: negative: Respiratory Distress Extremity: positive: Normal Inspection Neurologic: positive: Other Medical Decision Making - Medical Decision Making 09/06/18 21:28 Patient will be discharged and allowed to sit in the waiting room *DC/Admit/Observation/Transfer Diagnosis at time of Disposition: Low back pain - Discharge Dispostion Disposition: HOME Condition at time of disposition: Stable Decision to Admit order: No - Referrals Referrals: Chandra Vasquez MD [Staff Physician] - - Patient Instructions Printed Discharge Instructions: Low Back Pain, DI for Low Back Pain Additional Instructions: Follow-up with spine surgery for further evaluation and treatment. And he may sleep in the waiting room we will aslo feed you tonight - Post Discharge Activity
== END 2018-09-06 21:34 | disposition home or self-care (01) ==
LOC: JERFT 20:41
DX: M54.5 Low back pain (principal); F10.20 Alcohol dependence, uncomplicated; I10 Essential (primary) hypertension; C45.9 Mesothelioma, unspecified; Z59.0 Homelessness
CPT/HCPCS: 99281-25

== ENCOUNTER 2018-09-11 15:40 | Emergency (ER) | payer OTHER ==
[2018-09-11 15:48] VITALS: TEMP 98.3; BMI 33.5
--- NOTE | 2018-09-11 17:57 | PDOC ---
*Physical Exam - Vital Signs Last Vital Signs Temp Pulse Resp BP Pulse Ox 98.3 F 85 18 130/68 96 09/11/18 15:46 09/11/18 15:46 09/11/18 15:46 09/11/18 15:46 09/11/18 15:46 Medical Decision Making - Medical Decision Making 09/11/18 18:20 Mr De Leon is well know to this ER He presents to the ER today via EMS Pt reports back pain (which is chronic) He actually denies new traumatic injury He denies incontinence Pt was eating a tray of food during my assessment Re Assess for Sobriety and steady gait Signed out to Dr Kumar 09/11/18 18:26 *DC/Admit/Observation/Transfer Diagnosis at time of Disposition: Back pain - Discharge Dispostion Disposition: HOME Condition at time of disposition: Improved - Referrals - Patient Instructions - Post Discharge Activity
--- NOTE | 2018-09-11 18:31 | PDOC ---
History of Present Illness - General Chief Complaint: Shortness of Breath Stated Complaint: SOB Time Seen by Provider: 09/11/18 17:17 History Source: Patient, Old Records Exam Limitations: No Limitations - History of Present Illness Initial Comments: 09/11/18 18:35 63 yo M well known to ED w/ a h/o HTN, mesothelioma, alcohol abuse, comes in c/ o exacerbation of his chronic low back pain. Pain does not radiate anywhere, no numbness/tingloing anywhere, no incontinence, no burning/pain on urination, no CP, no SOB, no palpitations, no abdominal pain, no fever/chills, no NVD. NO other complaints today. Pt denies recent fall/trauma. He states "I have done many xrays and CT scans and I do not want narcotics". He denies alcohol use today, last drink was yesterday 09/11/18 19:12 Past History - Past Medical History Allergies/Adverse Reactions: Allergies Allergy/AdvReac Type Severity Reaction Status Date / Time Fish Containing Products Allergy Mild Swelling Verified 09/11/18 15:46 No Known Drug Allergies Allergy Verified 09/11/18 15:46 Home Medications: Ambulatory Orders NK [No Known Home Medication] 08/14/18 Anemia: No Asthma: No Cancer: Yes (mesothelioma lung cancer) Cardiac Disorders: No CVA: No COPD: No CHF: No DVT: No Dementia: No Diabetes: No GI Disorders: No Disorders: No HTN: Yes (non compliance) Hypercholesterolemia: No Kidney Stones: No Liver Disease: No Psychiatric Problems: Yes (etoh) Seizures: No Thyroid Disease: No - Surgical History Abdominal Surgery: No Appendectomy: No Cardiac Surgery: No Cholecystectomy: No Lung Surgery: No Neurologic Surgery: No Orthopedic Surgery: No - Family Disease History Family Disease History: CA: Mother - Reproductive History Testicular Surgery: No - Immunization History TDAP Vaccination: Yes Immunization Up to Date: Yes - Suicide/Smoking/Psychosocial Hx Smoking Status: No Smoking History: Current some day smoker Have you smoked in the past 12 months: No Number of Cigarettes Smoked Daily: 0 If you are a former smoker, when did you quit?: 0 Cigars Per Day: 0 Information on smoking cessation initiated: No 'Breaking Loose' booklet given: 09/22/17 Hx Alcohol Use: Yes (less than one hr p.t.a.) Drug/Substance Use Hx: No Substance Use Type: Alcohol Hx Substance Use Treatment: Yes ([facility] 04/05/18 to 04/08/18) Review of Systems - Review of Systems Able to Perform ROS?: Yes Constitutional: No: Chills, Fever, Malaise, Night Sweats HEENTM: No: Eye Pain, Recent change in vision, Throat Pain Respiratory: No: Cough, Shortness of Breath Cardiac (ROS): No: Chest Pain, Palpitations, Chest Tightness ABD/GI: No: Diarrhea, Nausea, Vomiting, Abdominal cramping : No: Dysuria, Hematuria Musculoskeletal: Yes: Back Pain Integumentary: No: Rash Neurological: No: Headache, Numbness, Dizziness Psychiatric: No: Change in Appetite Endocrine: No: Unexplained Weight Loss *Physical Exam - Vital Signs Last Vital Signs Temp Pulse Resp BP Pulse Ox 98.3 F 85 18 130/68 96 09/11/18 15:46 09/11/18 15:46 09/11/18 15:46 09/11/18 15:46 09/11/18 15:46 - Physical Exam General Appearance: Yes: Nourished. No: Apparent Distress HEENT: positive: DOUGLAS, Normal ENT Inspection, Normal Voice. negative: Pale Conjunctivae, Scleral Icterus (R), Scleral Icterus (L) Neck: positive: Supple. negative: Decreased range of motion, Tender midline Respiratory/Chest: positive: Lungs Clear, Normal Breath Sounds. negative: Respiratory Distress, Accessory Muscle Use Cardiovascular: positive: Regular Rhythm, Regular Rate Gastrointestinal/Abdominal: positive: Normal Bowel Sounds, Soft. negative: Tender Musculoskeletal: positive: Normal Inspection, Other (Diffuse low back tenderness , no assymetry, FROM, LEs with FROM and 5/5 strength, full sensory function). negative: CVA Tenderness, Decreased Range of Motion Extremity: positive: Normal Capillary Refill, Normal Inspection, Normal Range of Motion. negative: Tender, Pedal Edema Integumentary: positive: Normal Color, Dry. negative: Jaundice, Rash Neurologic: positive: Fully Oriented, Alert, Normal Mood/Affect Medical Decision Making - Medical Decision Making 09/11/18 18:38 63 yo M w/ chronic back pain, has had many CT scans and xrays done in the past, will offer tylenol for pain and reassess. *DC/Admit/Observation/Transfer Diagnosis at time of Disposition: Back pain - Referrals - Patient Instructions - Post Discharge Activity
[2018-09-11 23:47] VITALS: BP 129/74; PULSE 80
== END 2018-09-11 23:47 | disposition home or self-care (01) ==
LOC: JER 15:40
DX: M54.5 Low back pain (principal); I10 Essential (primary) hypertension; C45.9 Mesothelioma, unspecified; Z59.0 Homelessness
CPT/HCPCS: 99281-25

== ENCOUNTER 2018-09-14 15:44 | Emergency (ER) | payer OTHER ==
[2018-09-14 15:57] VITALS: BMI 33.0
--- NOTE | 2018-09-14 16:01 | PDOC ---
History of Present Illness - General Chief Complaint: Alcohol intoxication Stated Complaint: INTOX - History of Present Illness Initial Comments: The pt is a 63M w/ a history of EtOH abuse, chronic back pain, HTN, mesothelioma (per chart review) who presents by EMS for EtOH intoxication. On arrival, the pt reports persistent back pain but is otherwise unable to describe his complaints. 09/14/18 16:12 Past History - Past Medical History Allergies/Adverse Reactions: Allergies Allergy/AdvReac Type Severity Reaction Status Date / Time Fish Containing Products Allergy Mild Swelling Verified 09/11/18 15:46 No Known Drug Allergies Allergy Verified 09/11/18 15:46 Home Medications: Ambulatory Orders NK [No Known Home Medication] 08/14/18 Anemia: No Asthma: No Cancer: Yes (mesothelioma lung cancer) Cardiac Disorders: No CVA: No COPD: No CHF: No DVT: No Dementia: No Diabetes: No GI Disorders: No Disorders: No HTN: Yes (non compliance) Hypercholesterolemia: No Kidney Stones: No Liver Disease: No Psychiatric Problems: Yes (etoh) Seizures: No Thyroid Disease: No - Surgical History Abdominal Surgery: No Appendectomy: No Cardiac Surgery: No Cholecystectomy: No Lung Surgery: No Neurologic Surgery: No Orthopedic Surgery: No - Family Disease History Family Disease History: CA: Mother - Reproductive History Testicular Surgery: No - Immunization History TDAP Vaccination: Yes Immunization Up to Date: Yes - Suicide/Smoking/Psychosocial Hx Smoking Status: No Smoking History: Never smoked Have you smoked in the past 12 months: No Number of Cigarettes Smoked Daily: 0 If you are a former smoker, when did you quit?: 0 Cigars Per Day: 0 Information on smoking cessation initiated: No 'Breaking Loose' booklet given: 09/22/17 Hx Alcohol Use: Yes Drug/Substance Use Hx: No Substance Use Type: Alcohol Hx Substance Use Treatment: Yes ([facility] 04/05/18 to 04/08/18) Review of Systems - Review of Systems Able to Perform ROS?: Yes Comments:: GENERAL/CONSTITUTIONAL: No fever HEAD, EYES, EARS, NOSE AND THROAT: No change in vision. CARDIOVASCULAR: No chest pain RESPIRATORY: Denies cough GASTROINTESTINAL: No nausea, vomiting GENITOURINARY: No dysuria MUSCULOSKELETAL: +chronic back pain SKIN: No rash 09/14/18 16:00 Is the patient limited Montenegrin proficient: No *Physical Exam - Vital Signs Last Vital Signs Temp Pulse Resp BP Pulse Ox 82 18 114/71 94 L 09/14/18 15:50 09/14/18 15:50 09/14/18 15:50 09/14/18 15:50 - Physical Exam Comments: GENERAL: Tired, oriented to person/place, no distress HEAD: No signs of trauma, normocephalic, atraumatic EYES: PERRLA, EOMI, sclera anicteric, conjunctiva clear ENT: Hearing grossly normal, nares patent. Moist mucosa. No emesis in oropharynx LUNGS: No distress, speaks full sentences, clear to auscultation bilaterally HEART: Regular rate and rhythm, normal S1 and S2, no murmurs appreciated, peripheral pulses normal and equal bilaterally ABDOMEN: Soft, protuberant, nontender, normoactive bowel sounds. No guarding, no rebound NEUROLOGICAL: Cranial nerves II through XII grossly intact. Slurred speech SKIN: Warm, Dry 09/14/18 16:00 Medical Decision Making - Medical Decision Making The pt is a 63M w/ a history of EtOH abuse, HTN, and chronic back pain who presents for evaluation of EtOH intoxication ED Course Pt protecting airway, able to vocalize No signs of trauma Will reassess 09/14/18 16:01 Pt refusing ECG Pt ambulating in ED, no acute complaints, continues to endorse chronic back pain Eating in ED *DC/Admit/Observation/Transfer Diagnosis at time of Disposition: Alcohol intoxication Qualifiers: Complication of substance-induced condition: with unspecified complication Qualified Code(s): F10.929 - Alcohol use, unspecified with intoxication, unspecified - Discharge Dispostion Disposition: HOME Condition at time of disposition: Stable Decision to Admit order: No - Referrals Referrals: [facility] [place] [Provider Group] - Patient Instructions Printed Discharge Instructions: DI for Alcohol Abuse Additional Instructions: You were seen in the Emergency Department for evaluation for alcohol intoxication. Review the handout provided at discharge. Follow up with the referral provided. Return to the Emergency Department if you develop fevers/ chills, chest pain, trouble breathing, or any new/concerning symptoms. - Post Discharge Activity
--- NOTE | 2018-09-14 16:12 | PDOC ---
Attending Attestation - Resident Resident Name: Sigifredo Davis - ED Attending Attestation I have performed the following: I have examined & evaluated the patient, The case was reviewed & discussed with the resident, I agree w/resident's findings & plan, Exceptions are as noted - HPI HPI: 09/14/18 18:35 Mr De Leon is a 63 yo M who is well known to the ER He has a h/o HTN, alcohol abuse, mesothelioma, chronic back pain, recent admission for Afib Pt presents to the ER via EMS with no complaints He request a tray of food No complaints of chest pain He denies drinking alcohol today - Physicial Exam PE: 09/14/18 18:40 Discheveled, Malodorous RRR, no irregularity noted Diminished breath sounds at the bases No abd tenderness to palpation Lower extremity edema - Medical Decision Making 09/14/18 18:41 Mr De Leon is well known to this ER He presents with no specific complaints however is clearly intoxicated Pt should be evaluated with EKG, consider labs Re Assess for sobriety S/o to night team at 7pm
[2018-09-14] MEDS ORDERED: INSULIN (NOVOLOG) ASPART 100 UNITS/ML 10ML VIAL ONE (21:26)
[2018-09-15 05:47] VITALS: PULSE 80
--- NOTE | 2018-09-15 05:55 | PDOC ---
*Physical Exam - Vital Signs Last Vital Signs Temp Pulse Resp BP Pulse Ox 80 18 118/78 97 09/15/18 01:47 09/15/18 01:47 09/15/18 01:47 09/15/18 01:47 Medical Decision Making - Medical Decision Making 09/15/18 05:54 Patient has been sleeping throughout the night. He refused EKG. He has no further complaints at this time, he has ambulated to the bathroom without difficulty is alert and oriented 4 with no additional complaints and will be discharged home. *DC/Admit/Observation/Transfer Diagnosis at time of Disposition: Alcohol intoxication Qualifiers: Complication of substance-induced condition: with unspecified complication Qualified Code(s): F10.929 - Alcohol use, unspecified with intoxication, unspecified - Discharge Dispostion Disposition: HOME Condition at time of disposition: Stable - Referrals Referrals: [facility] [place] [facility] [place] [Provider Group] - Patient Instructions Printed Discharge Instructions: DI for Alcohol Abuse Additional Instructions: You were seen in the Emergency Department for evaluation for alcohol intoxication. Review the handout provided at discharge. Follow up with the referral provided. Return to the Emergency Department if you develop fevers/ chills, chest pain, trouble breathing, or any new/concerning symptoms. - Post Discharge Activity
[2018-09-15 06:13] VITALS: BP 122/78; TEMP 98.7
== END 2018-09-15 06:13 | disposition home or self-care (01) ==
LOC: JER 15:44
DX: F10.220 Alcohol dependence with intoxication, uncomplicated (principal); Y90.9 Presence of alcohol in blood, level not specified; I10 Essential (primary) hypertension; C45.9 Mesothelioma, unspecified; M54.5 Low back pain; G89.29 Other chronic pain; Z59.0 Homelessness
CPT/HCPCS: 99282-25

== ENCOUNTER 2018-09-18 14:33 | Emergency (ER) | payer OTHER ==
[2018-09-18 15:04] VITALS: BP 151/80; PULSE 78; TEMP 97.8; BMI 33.0
--- NOTE | 2018-09-18 16:29 | PDOC ---
Attending Attestation - Resident Resident Name: Stevenson Jiang - ED Attending Attestation I have performed the following: I have examined & evaluated the patient, The case was reviewed & discussed with the resident, I agree w/resident's findings & plan, Exceptions are as noted - HPI HPI: 09/18/18 16:35 Mr De Leon is a 63 yo M who is well known to the ER He has a h/o HTN, alcohol abuse, mesothelioma, chronic back pain, recent admission for Afib Pt presents to the ER via EMS reporting that he needed his sutures removed He request a tray of food No complaints of chest pain, headache He denies drinking alcohol today He denies drug use 09/18/18 16:42 - Physicial Exam PE: 09/18/18 16:36 Discheveled, Malodorous RRR, no irregularity noted Diminished breath sounds at the bases No abd tenderness to palpation Lower extremity edema - Medical Decision Making 09/18/18 16:36 Mr De Leon is well known to this ER He presents with no specific complaints however is clearly intoxicated Re Assess for sobriety S/o to night team at 7pm <Sadia Cornell - Last Filed: 09/18/18 16:35> - Medical Decision Making Documentation prepared by JOSE ANTONIO Desai, acting as medical concierge for Sadia Cornell MD. 09/18/18 16:52 <Serenity Juárez - Last Filed: 09/18/18 16:53>
--- NOTE | 2018-09-18 17:30 | PDOC ---
History of Present Illness - General Chief Complaint: Alcohol intoxication Stated Complaint: ALCOHOL INTOXICATION Time Seen by Provider: 09/18/18 15:19 History Source: Patient Exam Limitations: Intoxication - History of Present Illness Initial Comments: 63M w/ a history of EtOH abuse, chronic back pain, HTN, mesothelioma presents to the ED trashed. He drank a significant amount of alcohol. He states he only wants to sleep and nothing has changed from his visit yesterday or the day before. Past History - Past Medical History Allergies/Adverse Reactions: Allergies Allergy/AdvReac Type Severity Reaction Status Date / Time Fish Containing Products Allergy Mild Swelling Verified 09/18/18 14:41 No Known Drug Allergies Allergy Verified 09/18/18 14:41 Home Medications: Ambulatory Orders NK [No Known Home Medication] 08/14/18 Anemia: No Asthma: No Cancer: Yes (mesothelioma lung cancer) Cardiac Disorders: No CVA: No COPD: No CHF: No DVT: No Dementia: No Diabetes: No GI Disorders: No Disorders: No HTN: Yes (non compliance) Hypercholesterolemia: No Kidney Stones: No Liver Disease: No Psychiatric Problems: Yes (etoh) Seizures: No Thyroid Disease: No - Surgical History Abdominal Surgery: No Appendectomy: No Cardiac Surgery: No Cholecystectomy: No Lung Surgery: No Neurologic Surgery: No Orthopedic Surgery: No - Family Disease History Family Disease History: CA: Mother - Reproductive History Testicular Surgery: No - Immunization History TDAP Vaccination: Yes Immunization Up to Date: Yes - Suicide/Smoking/Psychosocial Hx Smoking Status: No Smoking History: Never smoked Have you smoked in the past 12 months: No Number of Cigarettes Smoked Daily: 0 If you are a former smoker, when did you quit?: 0 Cigars Per Day: 0 Information on smoking cessation initiated: No 'Breaking Loose' booklet given: 09/22/17 Hx Alcohol Use: No Drug/Substance Use Hx: No Substance Use Type: Alcohol Hx Substance Use Treatment: Yes ([facility] 04/05/18 to 04/08/18) Review of Systems - Review of Systems Able to Perform ROS?: No (intoxicated) *Physical Exam - Vital Signs Last Vital Signs Temp Pulse Resp BP Pulse Ox 97.8 F 78 18 151/80 93 L 09/18/18 14:42 09/18/18 14:42 09/18/18 14:42 09/18/18 14:42 09/18/18 14:42 - Physical Exam Comments: GENERAL: Intoxicated, lethargic. No apparent distress. HEENT: Normocephalic, atraumatic. CARDIOVASCULAR: Normal S1, S2. Regular rate and rhythm. PULMONARY: No evidence of respiratory distress. Lungs clear to auscultation bilaterally. No wheezing, rales or rhonchi. ABDOMEN: Soft, non-distended, non-tender. EXTREMITIES: Limited ROM in lower extremities. No gross deformities. SKIN: Warm, dry. No rash NEUROLOGICAL: No focal neurological deficits. Medical Decision Making - Medical Decision Making 63M w/ a history of EtOH abuse, chronic back pain, HTN, mesothelioma presents to the ED trashed. He drank a significant amount of alcohol. He states he only wants to sleep and nothing has changed from his visit yesterday or the day before. DDx IBNLT: intoxication Plan: TLC, wait for clinical sobriety, DC when he is ready to leave the ED. *DC/Admit/Observation/Transfer Diagnosis at time of Disposition: Alcohol intoxication - Discharge Dispostion Disposition: HOME Condition at time of disposition: Stable Decision to Admit order: No - Referrals - Patient Instructions Printed Discharge Instructions: DI for Alcohol Abuse - Post Discharge Activity
== END 2018-09-18 19:32 | disposition home or self-care (01) ==
LOC: JER 14:33
DX: F10.220 Alcohol dependence with intoxication, uncomplicated (principal); I10 Essential (primary) hypertension; C45.9 Mesothelioma, unspecified; M54.5 Low back pain; G89.29 Other chronic pain; Z59.0 Homelessness
CPT/HCPCS: 99282-25

== ENCOUNTER 2018-09-19 14:27 | Emergency (ER) | payer OTHER ==
[2018-09-19 15:03] VITALS: BP 90/52; PULSE 92; TEMP 97.3; BMI 33.0
--- NOTE | 2018-09-19 15:09 | PDOC ---
History of Present Illness - General Chief Complaint: Alcohol intoxication Stated Complaint: CHEST PAIN Time Seen by Provider: 09/19/18 15:08 - History of Present Illness Initial Comments: 09/19/18 15:25 Mr. De Leon is a 63 yo male w/ pmh of HTN, mesothelioma, DVTs, and chronic alcohol abuse who presents for evaluation of reported intoxication. Patient reports he drinks "every day." Will not quantify how much. Reports he is experiencing his chronic back pain at this time. The patient denies chest pain, shortness of breath, headache and dizziness. Denies fever, chills, nausea, vomit, diarrhea and constipation. Denies dysuria, frequency, urgency and hematuria. Past History - Past Medical History Allergies/Adverse Reactions: Allergies Allergy/AdvReac Type Severity Reaction Status Date / Time Fish Containing Products Allergy Mild Swelling Verified 09/18/18 14:41 No Known Drug Allergies Allergy Verified 09/18/18 14:41 Home Medications: Ambulatory Orders NK [No Known Home Medication] 08/14/18 Anemia: No Asthma: No Cancer: Yes (mesothelioma lung cancer) Cardiac Disorders: No CVA: No COPD: No CHF: No DVT: No Dementia: No Diabetes: No GI Disorders: No Disorders: No HTN: Yes (non compliance) Hypercholesterolemia: No Kidney Stones: No Liver Disease: No Psychiatric Problems: Yes (etoh) Seizures: No Thyroid Disease: No - Surgical History Abdominal Surgery: No Appendectomy: No Cardiac Surgery: No Cholecystectomy: No Lung Surgery: No Neurologic Surgery: No Orthopedic Surgery: No - Family Disease History Family Disease History: CA: Mother - Reproductive History Testicular Surgery: No - Immunization History TDAP Vaccination: Yes Immunization Up to Date: Yes - Suicide/Smoking/Psychosocial Hx Smoking Status: No Smoking History: Never smoked Have you smoked in the past 12 months: No Number of Cigarettes Smoked Daily: 0 If you are a former smoker, when did you quit?: 0 Cigars Per Day: 0 'Breaking Loose' booklet given: 09/22/17 Hx Alcohol Use: Yes Drug/Substance Use Hx: No Substance Use Type: Alcohol Hx Substance Use Treatment: Yes ([facility] 04/05/18 to 04/08/18) Review of Systems - Review of Systems Comments:: 09/19/18 15:26 GENERAL/CONSTITUTIONAL: No fever or chills. No weakness. HEAD, EYES, EARS, NOSE AND THROAT: No change in vision. No ear pain or discharge. No sore throat. CARDIOVASCULAR: No chest pain or shortness of breath RESPIRATORY: No cough, wheezing, or hemoptysis. GASTROINTESTINAL: No nausea, vomiting, diarrhea or constipation. GENITOURINARY: No dysuria, frequency, or change in urination. MUSCULOSKELETAL: +Back pain as described. No joint or muscle swelling or pain. SKIN: No rash NEUROLOGIC: No headache, vertigo, loss of consciousness, or change in strength/ sensation. ENDOCRINE: No increased thirst. No abnormal weight change HEMATOLOGIC/LYMPHATIC: No anemia, easy bleeding, or history of blood clots. ALLERGIC/IMMUNOLOGIC: No hives or skin allergy. *Physical Exam - Vital Signs Last Vital Signs Temp Pulse Resp BP Pulse Ox 97.3 F L 92 H 20 90/52 L 91 L 09/19/18 15:00 09/19/18 15:00 09/19/18 15:00 09/19/18 15:00 09/19/18 15:00 - Physical Exam Comments: 09/19/18 15:27 GENERAL: Patient obese and malodorous. Obviously intoxicated however arousable and fully oriented, in no acute distress HEAD: No signs of trauma, normocephalic, atraumatic EYES: PERRLA, EOMI, sclera anicteric, conjunctiva clear ENT: Auricles normal inspection, hearing grossly normal, nares patent, oropharynx clear without exudates. Moist mucosa NECK: Normal ROM, supple, no lymphadenopathy, JVD, or masses LUNGS: No distress, speaks full sentences, clear to auscultation bilaterally HEART: Regular rate and rhythm, normal S1 and S2, no murmurs, rubs or gallops, peripheral pulses normal and equal bilaterally. ABDOMEN: Soft, nontender, normoactive bowel sounds. No guarding, no rebound. No masses EXTREMITIES: Normal inspection, Normal range of motion, no edema. No clubbing or cyanosis. NEUROLOGICAL: Cranial nerves II through XII grossly intact. No focal sensorimotor deficits SKIN: Warm, Dry, normal turgor, no rashes or lesions noted. ED Treatment Course - LABORATORY CBC & Chemistry Diagram: 09/19/18 15:30 09/19/18 15:30 Medical Decision Making - Medical Decision Making 09/19/18 17:40 Mr. De Leon is a 63 yo male w/ pmh as described who presents intoxicated. Patient evaluated with labs as below as patient has previously been severely hypokalemic in this ER. Patient noted to be mildly hypokalemic - oral Kdur given for repletion. No other concerning findings and CXR noted to be c/w patient's baseline. Upon repeat evaluation patient is more awake, sitting up with clear speech, asking for food. EKG negative. 09/19/18 17:49 Patient noted to be walking around ER w/ steady gait. Pending repeat vitals. 09/19/18 19:02 Patient noted to have eloped. Laboratory Results - last 24 hr 09/19/18 09/19/18 15:30 15:30 WBC 6.1 RBC 3.57 L Hgb 9.6 L Hct 30.3 L MCV 84.8 MCH 26.9 MCHC 31.7 L RDW 22.4 H Plt Count 239 D MPV 7.1 L D Absolute Neuts (auto) 3.3 Neutrophils % 54.4 Lymphocytes % 34.6 Monocytes % 5.7 Eosinophils % 3.9 Basophils % 1.4 Nucleated RBC % 0 Sodium 143 Potassium 3.1 L Chloride 107 Carbon Dioxide 28 Anion Gap 8 BUN 7 Creatinine 0.5 L Creat Clearance w eGFR 167.94 Random Glucose 100 Calcium 8.1 L Total Bilirubin 0.2 AST 28 ALT 21 Alkaline Phosphatase 124 H Creatine Kinase 182 Creatine Kinase Index 4.3 CK-MB (CK-2) 8.0 H Troponin I < 0.02 Total Protein 6.5 Albumin 3.2 L *DC/Admit/Observation/Transfer Diagnosis at time of Disposition: Eloped from emergency department - Discharge Dispostion Disposition: ELOPED - Referrals - Patient Instructions - Post Discharge Activity
[2018-09-19 15:37] LABS: BASO % 1.4 % (0-2.0); EOS % 3.9 % (0-4.5); HEMATOCRIT 30.3 % (35.4-49); HEMOGLOBIN 9.6 GM/dL (11.7-16.9); LYMPH % 34.6 % (8-40); MCH 26.9 pg (25.7-33.7); MCHC 31.7 g/dl (32.0-35.9); MEAN CELL VOLUME 84.8 fl (80-96); MEAN PLT VOLUME 7.1 fl (7.5-11.1); MONO % 5.7 % (3.8-10.2); NEUT % 54.4 % (42.8-82.8); PLATELET COUNT 239 K/MM3 (134-434); RBC 3.57 M/mm3 (4.00-5.60); RDW 22.4 % (11.9-15.9); WHITE BLOOD COUNT 6.1 K/mm3 (4.0-10.0)
[2018-09-19 16:00] LABS: ALBUMIN 3.2 g/dl (3.4-5.0); ALK PHOS 124 U/L (45-117); ANION GAP 8 MMOL/L (8-16); BILIRUBIN,TOTAL 0.2 mg/dL (0.2-1); BLOOD UREA NITROGEN 7 mg/dL (7-18); CALCIUM 8.1 mg/dL (8.5-10.1); CHLORIDE 107 mmol/L (98-107); CO2 28 mmol/L (21-32); CREATININE 0.5 mg/dL (0.55-1.3); GLUCOSE,RANDOM 100 mg/dL (74-106); POTASSIUM 3.1 mmol/L (3.5-5.1); SGOT/AST 28 U/L (15-37); SGPT/ALT 21 U/L (13-61); SODIUM 143 mmol/L (136-145); TOT PROT 6.5 g/dl (6.4-8.2)
[2018-09-19] MEDS ORDERED: POTASSIUM CHLORIDE TABS 20 MEQ TABLET.ER (FP) PO ONE (16:02)
--- NOTE | 2018-09-19 17:45 | PDOC ---
Attending Attestation - Resident Resident Name: Kelvin Kee - ED Attending Attestation I have performed the following: I have examined & evaluated the patient, The case was reviewed & discussed with the resident, I agree w/resident's findings & plan, Exceptions are as noted - HPI HPI: 09/19/18 17:52 63 M with h/o HTN, mesothelioma, alcohol abuse, presenting to ED with ETOH intoxication. Admits to having several drinks today. Denies coingestions. Pt denies CP/SOB. Denies any complaints. - Physicial Exam PE: 09/19/18 17:53 GENERAL: Awake, alert, and fully oriented, in no acute distress. HEAD: No signs of trauma EYES: PERRLA, EOMI, sclera anicteric, conjunctiva clear ENT: Auricles normal inspection, hearing grossly normal, nares patent, oropharynx clear without exudates. Moist mucosa NECK: Nontender, no stepoffs, Normal ROM, supple, no lymphadenopathy, JVD, or masses LUNGS: Breath sounds equal, clear to auscultation bilaterally. No wheezes, and no crackles HEART: Regular rate and rhythm, normal S1 and S2, no murmurs, rubs or gallops ABDOMEN: Soft, nontender, normoactive bowel sounds. No guarding, no rebound. No masses EXTREMITIES: Normal range of motion, no edema. No clubbing or cyanosis. No cords, erythema, or tenderness NEUROLOGICAL: Cranial nerves II through XII intact. 5/5 strength and sensation in all extremities, Normal speech, normal gait, normal cerebellar function SKIN: Warm, Dry, normal turgor, no rashes or lesions noted. - Medical Decision Making 09/19/18 17:57 63 M with ETOH intoxication. At time of my evaluation, pt is awake, alert, ambulatory with steady gait. Pt noted to have mild hypotension in ED, as well as slight hypoxia. Pt without any complaints. Will check labs and CXR to r/o acute process. - Labs - CXR 09/19/18 18:00 Labs and CXR unremarkable Pt was given PO potassium for mild hypokalemia Pt eloped prior to discharge. Was clinically sober at time of elopement.
[2018-09-19 19:19] LABS: ANISOCYTOSIS 1+; MACROCYTOSIS 0; PLATELET ESTIMATE NORMAL
--- NOTE | 2018-09-20 15:34 | EKG ---
Test Reason : Blood Pressure : / mmHG Vent. Rate : 090 BPM Atrial Rate : 090 BPM P-R Int : 202 ms QRS Dur : 110 ms QT Int : 416 ms P-R-T Axes : 026 -31 037 degrees QTc Int : 508 ms NORMAL SINUS RHYTHM LEFT AXIS DEVIATION INCOMPLETE LEFT BUNDLE BRANCH BLOCK PROLONGED QT ABNORMAL ECG WHEN COMPARED WITH ECG OF 26-AUG-2018 00:39, SINUS RHYTHM HAS REPLACED ATRIAL FIBRILLATION VENT. RATE HAS DECREASED Confirmed by PREET [place], [place] ([id number]) on 09/20/2018 3:34:21 PM Referred By: Confirmed By:KY OVIEDO MD
== END 2018-09-19 20:00 | disposition left against medical advice (07) ==
LOC: JER 14:27
DX: F10.220 Alcohol dependence with intoxication, uncomplicated (principal); E87.6 Hypokalemia; I10 Essential (primary) hypertension; C45.9 Mesothelioma, unspecified; M54.5 Low back pain; G89.29 Other chronic pain; Z59.0 Homelessness
CPT/HCPCS: 36415; 71045-TC-FY; 80053; 82550; 82553; 84484; 85025; 93005; 93010; 99282-25

== ENCOUNTER 2018-09-20 00:20 | Emergency (ER) | payer OTHER ==
[2018-09-20] MEDS ORDERED: ACETAMINOPHEN 500 MG TABLET (FP) PO ONE (00:56)
[2018-09-20] MEDS ORDERED: LIDOCAINE 5% TOPICAL PATCH TP ONE (00:56)
[2018-09-20] MEDS ORDERED: LIDOCAINE 5% TOPICAL PATCH ONE (01:07)
[2018-09-20] MEDS ORDERED: ACETAMINOPHEN 325 MG TABLET (FP) ONE (01:07)
[2018-09-20 01:52] VITALS: BP 151/82; PULSE 88; TEMP 98.1; BMI 35.9
--- NOTE | 2018-09-20 01:54 | PDOC ---
History of Present Illness - General Chief Complaint: Back Pain Stated Complaint: BACK PAIN Time Seen by Provider: 09/20/18 00:25 History Source: Patient Exam Limitations: No Limitations - History of Present Illness Initial Comments: 09/20/18 01:48 Patient is a 63-year-old male well known to this hospital, history of mesothelioma, chronic alcoholism, multiple fractures, PE, DVT complaining of lower back pain. This pain has been chronic and ongoing. He states also he has been drinking today. PMHX: as above PSOCHX: drinks daily ALL: NKDA GENERAL/CONSTITUTIONAL: [No fever or chills. No weakness. No weight change.] HEAD, EYES, EARS, NOSE AND THROAT: [No change in vision. No ear pain or discharge. No sore throat.] CARDIOVASCULAR: [No chest pain or shortness of breath.] RESPIRATORY: [No cough, wheezing, or hemoptysis.] GASTROINTESTINAL: [No nausea, vomiting, diarrhea or constipation. No rectal bleeding.] GENITOURINARY: [No dysuria, frequency, or change in urination.] MUSCULOSKELETAL: [No joint or muscle swelling or pain. No neck (+) back pain.] SKIN AND BREASTS: [No rash or easy bruising.] NEUROLOGIC: [No headache, vertigo, loss of consciousness, or loss of sensation.] PSYCHIATRIC: [No depression or anxiety.] ENDOCRINE: [No increased thirst. No abnormal weight change.] HEMATOLOGIC/LYMPHATIC: [No anemia, easy bleeding, or history of blood clots.] ALLERGIC/IMMUNOLOGIC: [No hives or skin allergy. No latex allergy.] GENERAL: [The patient is awake, alert, and fully oriented, in mild distress, rubbing his back] HEAD: [Normal with no signs of trauma.] EYES: [Pupils equal, round and reactive to light, extraocular movements intact, sclera anicteric, conjunctiva clear.] ENT: [Ears normal, nares patent, oropharynx clear without exudates. Moist mucous membranes.] NECK: [Normal range of motion, supple without lymphadenopathy, JVD, or masses.] LUNGS: [Breath sounds equal, clear to auscultation bilaterally. No wheezes, and no crackles.] HEART: [Regular rate and rhythm, normal S1 and S2 without murmur, rub.] ABDOMEN: [Soft, nontender, normoactive bowel sounds. No guarding, no rebound. No masses.] BACK: lumbar paraspinal tenderness EXTREMITIES: [Normal range of motion, mild edema b/l lower ext chronic. No clubbing or cyanosis. No cords, erythema, or tenderness.] NEUROLOGICAL: [Cranial nerves II through XII grossly intact. Normal speech, normal gait.] PSYCH: [Normal mood, normal affect.] SKIN: [Warm, Dry, normal turgor, no rashes or lesions noted.] Past History - Past Medical History Allergies/Adverse Reactions: Allergies Allergy/AdvReac Type Severity Reaction Status Date / Time Fish Containing Products Allergy Mild Swelling Verified 09/20/18 02:01 Home Medications: Ambulatory Orders NK [No Known Home Medication] 08/14/18 Anemia: No Asthma: No Cancer: Yes (mesothelioma lung cancer) Cardiac Disorders: No CVA: No COPD: No CHF: No DVT: No Dementia: No Diabetes: No GI Disorders: No Disorders: No HTN: Yes (non compliance) Hypercholesterolemia: No Kidney Stones: No Liver Disease: No Psychiatric Problems: Yes (etoh) Seizures: No Thyroid Disease: No - Surgical History Abdominal Surgery: No Appendectomy: No Cardiac Surgery: No Cholecystectomy: No Lung Surgery: No Neurologic Surgery: No Orthopedic Surgery: No - Family Disease History Family Disease History: CA: Mother - Reproductive History Testicular Surgery: No - Immunization History TDAP Vaccination: Yes Immunization Up to Date: Yes - Suicide/Smoking/Psychosocial Hx Smoking Status: No Smoking History: Never smoked Have you smoked in the past 12 months: No Number of Cigarettes Smoked Daily: 0 If you are a former smoker, when did you quit?: 0 Cigars Per Day: 0 'Breaking Loose' booklet given: 09/22/17 Hx Alcohol Use: Yes Drug/Substance Use Hx: No Substance Use Type: Alcohol Hx Substance Use Treatment: Yes ([facility] 04/05/18 to 04/08/18) Trauma Specific PMHX - Complaint Specific PMHX Arthritis: No Back Injury: Yes (seen at this hospital for the rib fractures) ED Treatment Course - Medications Given in the ED: ED Medications Discontinued Medications Generic Name Dose Route Start Last Admin Trade Name Freq PRN Reason Stop Dose Admin Acetaminophen 975 mg 09/20/18 00:56 09/20/18 01:39 Tylenol - PO 09/20/18 00:57 975 mg ONCE ONE Administration Lidocaine 1 patch 09/20/18 00:56 09/20/18 01:38 Lidoderm Patch - TP 09/20/18 00:57 1 patch ONCE ONE Administration Medical Decision Making - Medical Decision Making 09/20/18 01:48 Patient is a 63-year-old male well known to this hospital, history of mesothelioma, chronic alcoholism, multiple fractures, PE, DVT complaining of lower back pain. This pain has been chronic and ongoing. He states also he has been drinking today. Patient will be discharged pending sobriety I discussed the physical exam findings, ancillary test results and final diagnoses with the patient. I answered all of the patient's questions. The patient was satisfied with the care received and felt comfortable with the discharge plan and treatment plan. The Patient agrees to follow up with the primary care physician within 24-72 hours. *DC/Admit/Observation/Transfer Diagnosis at time of Disposition: Alcohol intoxication Qualifiers: Complication of substance-induced condition: uncomplicated Qualified Code(s): F10.920 - Alcohol use, unspecified with intoxication, uncomplicated Low back pain Qualifiers: Chronicity: chronic Back pain laterality: unspecified Sciatica presence: without sciatica Qualified Code(s): M54.5 - Low back pain - Discharge Dispostion Disposition: HOME Condition at time of disposition: Fair - Referrals - Patient Instructions Printed Discharge Instructions: DI for Low Back Pain Additional Instructions: Your Discharge Instructions: You must call primary care physician within 24 hours to arrange follow-up. Return to the Emergency Department with any new, persistent or worsening symptoms, for fever, chills, SOB, dizziness or any other concerning changes that may occur. - Post Discharge Activity
[2018-09-20] MEDS ORDERED: LIDOCAINE PATCH REMOVAL MC SCH (22:00)
== END 2018-09-20 06:15 | disposition home or self-care (01) ==
LOC: JER 00:20
DX: M54.5 Low back pain (principal); F10.220 Alcohol dependence with intoxication, uncomplicated; I10 Essential (primary) hypertension; C45.9 Mesothelioma, unspecified; Z59.0 Homelessness; Z86.711 Personal history of pulmonary embolism; Z86.718 Personal history of other venous thrombosis and embolism
CPT/HCPCS: 99281-25

== ENCOUNTER 2018-09-21 17:23 | Emergency (ER) | payer OTHER ==
[2018-09-21 17:33] VITALS: BMI 33.0
--- NOTE | 2018-09-21 20:12 | PDOC ---
History of Present Illness - General Chief Complaint: Alcohol intoxication Stated Complaint: INTOX Time Seen by Provider: 09/21/18 18:27 History Source: Patient Exam Limitations: Intoxication - History of Present Illness Initial Comments: 63M w/ a history of EtOH abuse, chronic back pain, HTN, mesothelioma presents to the ED trashed. He drank a significant amount of alcohol. He states he only wants to sleep and nothing has changed from his visit yesterday or the day before. Her asks to be constantly updated regarding the [employer] game scores and wants his dinner hot. He states he needs to drink 3 more rounds before he is ready to be done. Past History - Past Medical History Allergies/Adverse Reactions: Allergies Allergy/AdvReac Type Severity Reaction Status Date / Time Fish Containing Products Allergy Mild Swelling Verified 09/20/18 02:01 Home Medications: Ambulatory Orders NK [No Known Home Medication] 08/14/18 Anemia: No Asthma: No Cancer: Yes (mesothelioma lung cancer) Cardiac Disorders: No CVA: No COPD: No CHF: No DVT: No Dementia: No Diabetes: No GI Disorders: No Disorders: No HTN: Yes (non compliance) Hypercholesterolemia: No Kidney Stones: No Liver Disease: No Psychiatric Problems: Yes (etoh) Seizures: No Thyroid Disease: No - Surgical History Abdominal Surgery: No Appendectomy: No Cardiac Surgery: No Cholecystectomy: No Lung Surgery: No Neurologic Surgery: No Orthopedic Surgery: No - Family Disease History Family Disease History: CA: Mother - Reproductive History Testicular Surgery: No - Immunization History TDAP Vaccination: Yes Immunization Up to Date: Yes - Suicide/Smoking/Psychosocial Hx Smoking Status: No Smoking History: Never smoked Have you smoked in the past 12 months: No Number of Cigarettes Smoked Daily: 0 If you are a former smoker, when did you quit?: 0 Cigars Per Day: 0 Information on smoking cessation initiated: No 'Breaking Loose' booklet given: 09/22/17 Hx Alcohol Use: Yes Drug/Substance Use Hx: No Substance Use Type: Alcohol Hx Substance Use Treatment: Yes ([facility] 04/05/18 to 04/08/18) Review of Systems - Review of Systems Able to Perform ROS?: No (Intoxicated) *Physical Exam - Vital Signs Last Vital Signs Temp Pulse Resp BP Pulse Ox 97.1 F L 90 18 151/90 98 09/21/18 17:28 09/21/18 17:28 09/21/18 17:28 09/21/18 17:28 09/21/18 17:28 - Physical Exam Comments: GENERAL: Intoxicated, lethargic. No apparent distress. HEENT: Normocephalic, atraumatic. CARDIOVASCULAR: Normal S1, S2. Regular rate and rhythm. PULMONARY: No evidence of respiratory distress. Lungs clear to auscultation bilaterally. No wheezing, rales or rhonchi. ABDOMEN: Soft, non-distended, non-tender. EXTREMITIES: Limited ROM in lower extremities. No gross deformities. SKIN: Warm, dry. No rash NEUROLOGICAL: No focal neurological deficits. Medical Decision Making - Medical Decision Making 63M w/ a history of EtOH abuse, chronic back pain, HTN, mesothelioma presents to the ED trashed. He drank a significant amount of alcohol. He states he only wants to sleep and nothing has changed from his visit yesterday or the day before. DDx IBNLT: intoxication Plan: TLC, wait for clinical sobriety, DC when he is ready to leave the ED. *DC/Admit/Observation/Transfer Diagnosis at time of Disposition: Alcohol intoxication - Discharge Dispostion Disposition: HOME Condition at time of disposition: Stable Decision to Admit order: No - Referrals - Patient Instructions Printed Discharge Instructions: DI for Alcohol Abuse - Post Discharge Activity
--- NOTE | 2018-09-21 23:06 | PDOC ---
Attending Attestation - Resident Resident Name: Stevenson Jiang - ED Attending Attestation I have performed the following: I have examined & evaluated the patient, The case was reviewed & discussed with the resident, I agree w/resident's findings & plan, Exceptions are as noted - HPI HPI: 09/21/18 23:06 63 YO MALE intoxicated and well known to our ED - Physicial Exam PE: 09/21/18 23:06 disheveled 63 yo male with AOB head no scalp lacerations eyes ricardo eomi neck supple lungs cta b/l cvs [id number] abd protuberant ext chromic LE foot edema neuro he will wake up to answer questions and request food,moves all extremities - Medical Decision Making 09/21/18 23:08 pt will be discharged when he can ambulate safely
[2018-09-22 06:44] VITALS: BP 131/98; PULSE 101; TEMP 98.1
== END 2018-09-22 06:52 | disposition home or self-care (01) ==
LOC: JER 17:23
DX: F10.220 Alcohol dependence with intoxication, uncomplicated (principal); I10 Essential (primary) hypertension; C45.9 Mesothelioma, unspecified; M54.9 Dorsalgia, unspecified; G89.29 Other chronic pain; Z59.0 Homelessness
CPT/HCPCS: 99281-25

== ENCOUNTER → 2018-09-22 | Emergency (ER) | payer OTHER ==
--- NOTE | 2018-09-22 15:05 | PDOC ---
Rapid Medical Evaluation Chief Complaint: Alcohol intoxication Time Seen by Provider: 09/22/18 15:03 Medical Evaluation: Allergies Allergy/AdvReac Type Severity Reaction Status Date / Time Fish Containing Products Allergy Mild Swelling Verified 09/20/18 02:01 09/22/18 15:03 Pt c/o: ems jamarcus satishm in for public intoxication on a bench, no complaints Pt on brief exam: etoh smell, disheveled, vss bs 169 Pt ordered for: none Pt to proceed to the ED Discharge Disposition - Diagnosis Alcohol dependence with intoxication - Discharge Dispostion Condition at time of disposition: Stable - Referrals - Patient Instructions - Post Discharge Activity
[2018-09-22 15:08] VITALS: BP 112/62; PULSE 92; TEMP 98.4; BMI 35.5
== END | disposition left against medical advice (07) ==
LOC: JER 14:55
DX: F10.129 Alcohol abuse with intoxication, unspecified (principal); Z59.0 Homelessness
CPT/HCPCS: 99281-25

== ENCOUNTER 2018-09-24 21:09 | Emergency (ER) | payer OTHER ==
[2018-09-24 21:24] VITALS: BP 156/75; PULSE 88; TEMP 98.1; BMI 42.7
[2018-09-25] MEDS ORDERED: AZITHROMYCIN 500 MG TABLET PO ONE (06:17)
--- NOTE | 2018-09-25 06:18 | PDOC ---
Attending Attestation - Resident Resident Name: Harper Mckeon - ED Attending Attestation I have performed the following: I have examined & evaluated the patient, The case was reviewed & discussed with the resident, I agree w/resident's findings & plan - HPI HPI: 09/25/18 06:17 Pt comes with complaint of common cold. He is an alcohol abuser who is often in the ER. - Physicial Exam PE: 09/25/18 06:16 Agree with exam; pt has nasal congesiton; afebrile. - Medical Decision Making 09/25/18 06:39 Pt will be treated with zithromax for a sinusitis/atypical URI. He will be fed and he will likely return tonight for the 2nd day of tripak
--- NOTE | 2018-09-25 06:20 | PDOC ---
History of Present Illness - General Chief Complaint: Alcohol intoxication Stated Complaint: INTOXICATED Time Seen by Provider: 09/25/18 06:09 - History of Present Illness Initial Comments: 09/25/18 06:16 63 year old comes with cough and congestion and some chest tightness when coughing . Past History - Past Medical History Allergies/Adverse Reactions: Allergies Allergy/AdvReac Type Severity Reaction Status Date / Time Fish Containing Products Allergy Mild Swelling Verified 09/25/18 01:18 No Known Drug Allergies Allergy Verified 09/25/18 01:19 Home Medications: Ambulatory Orders NK [No Known Home Medication] 08/14/18 Anemia: No Asthma: No Cancer: Yes (mesothelioma lung cancer) Cardiac Disorders: No CVA: No COPD: No CHF: No DVT: No Dementia: No Diabetes: No GI Disorders: No Disorders: No HTN: Yes (non compliance) Hypercholesterolemia: No Kidney Stones: No Liver Disease: No Psychiatric Problems: Yes (etoh) Seizures: No Thyroid Disease: No - Surgical History Abdominal Surgery: No Appendectomy: No Cardiac Surgery: No Cholecystectomy: No Lung Surgery: No Neurologic Surgery: No Orthopedic Surgery: No - Family Disease History Family Disease History: CA: Mother - Reproductive History Testicular Surgery: No - Immunization History TDAP Vaccination: Yes Immunization Up to Date: Yes - Suicide/Smoking/Psychosocial Hx Smoking Status: No Smoking History: Never smoked Have you smoked in the past 12 months: No Number of Cigarettes Smoked Daily: 0 If you are a former smoker, when did you quit?: 0 Cigars Per Day: 0 Information on smoking cessation initiated: No 'Breaking Loose' booklet given: 09/22/17 Hx Alcohol Use: No Drug/Substance Use Hx: No Substance Use Type: Alcohol Hx Substance Use Treatment: Yes ([facility] 04/05/18 to 04/08/18) *Physical Exam - Vital Signs Last Vital Signs Temp Pulse Resp BP Pulse Ox 98.1 F 88 22 H 156/75 95 09/24/18 21:16 09/24/18 21:16 09/24/18 21:16 09/24/18 21:16 09/25/18 01:20 Medical Decision Making - Medical Decision Making 09/25/18 06:17 ED Course: will treat symptomatic with zpak PE: CTA anteriorly, RRR *DC/Admit/Observation/Transfer Diagnosis at time of Disposition: Alcohol intoxication, Congestion of upper airway, Viral syndrome - Discharge Dispostion Disposition: HOME Condition at time of disposition: Fair Decision to Admit order: No - Referrals - Patient Instructions Printed Discharge Instructions: DI for Alcohol Abuse, Common Cold Additional Instructions: You were seen in the ED for complaints of cough and congestion as well as alcohol intoxication. In the ED you were evaluated and treated with antibiotics. There does not appear to be an acute need for immediate hospitalization. Return to the ED immediately if you experience cough, blood in cough, fever, chest pain or shortness of breath. - Post Discharge Activity
[2018-09-25] MEDS ORDERED: AZITHROMYCIN 250 MG TABLET ONE (06:43)
== END 2018-09-25 07:07 | disposition home or self-care (01) ==
LOC: JER 21:09
DX: F10.220 Alcohol dependence with intoxication, uncomplicated (principal); J06.9 Acute upper respiratory infection, unspecified; B97.89 Other viral agents as the cause of diseases classified elsewhere; I10 Essential (primary) hypertension; C45.9 Mesothelioma, unspecified; Z59.0 Homelessness
CPT/HCPCS: 99284-25

== ENCOUNTER 2018-09-27 18:00 | Emergency (ER) | payer OTHER ==
--- NOTE | 2018-09-27 18:04 | PDOC ---
Rapid Medical Evaluation Time Seen by Provider: 09/27/18 18:02 Medical Evaluation: Allergies Allergy/AdvReac Type Severity Reaction Status Date / Time Fish Containing Products Allergy Mild Swelling Verified 09/25/18 01:18 No Known Drug Allergies Allergy Verified 09/25/18 01:19 09/27/18 18:02 I have performed a brief in-person evaluation of this patient. The patient presents with a chief complaint of: ETOH intoxication Pertinent physical exam findings: AOB. Reports usual ETOH consumption today. I have ordered the following: nothing The patient will proceed to the ED for further evaluation. Discharge Disposition - Diagnosis Alcohol intoxication - Referrals - Patient Instructions - Post Discharge Activity
[2018-09-27 18:07] VITALS: BP 110/70; PULSE 90; TEMP 98; BMI 40.3
--- NOTE | 2018-09-27 19:25 | PDOC ---
History of Present Illness - General Chief Complaint: Alcohol intoxication Stated Complaint: BACK PAIN Time Seen by Provider: 09/27/18 18:02 History Source: Patient Exam Limitations: Intoxication - History of Present Illness Initial Comments: 63M w/ a history of EtOH abuse, chronic back pain, HTN, mesothelioma presents to the ED intoxicated. He drank a significant amount of alcohol. He states he only wants to sleep and nothing has changed from his visit yesterday or the day before. Her asks to be constantly updated regarding the [employer] game scores and wants his dinner hot. He states he needs to drink 3 more rounds before he is ready to be done. Patient has left the ER and went to the first floor to find refreshments. He reports he will be back shortly. PCP: Dr. Garima Bridges PSH: None reported Allergies: Fish products Social Hx: 1 pint of alcohol daily, since age 16 Past History - Past Medical History Allergies/Adverse Reactions: Allergies Allergy/AdvReac Type Severity Reaction Status Date / Time Fish Containing Products Allergy Mild Swelling Verified 09/27/18 20:39 No Known Drug Allergies Allergy Verified 09/27/18 20:39 Home Medications: Ambulatory Orders NK [No Known Home Medication] 08/14/18 Anemia: No Asthma: No Cancer: Yes (mesothelioma lung cancer) Cardiac Disorders: No CVA: No COPD: No CHF: No DVT: No Dementia: No Diabetes: No GI Disorders: No Disorders: No HTN: Yes (non compliance) Hypercholesterolemia: No Kidney Stones: No Liver Disease: No Psychiatric Problems: Yes (etoh) Seizures: No Thyroid Disease: No - Surgical History Abdominal Surgery: No Appendectomy: No Cardiac Surgery: No Cholecystectomy: No Lung Surgery: No Neurologic Surgery: No Orthopedic Surgery: No - Family Disease History Family Disease History: CA: Mother - Reproductive History Testicular Surgery: No - Immunization History TDAP Vaccination: Yes Immunization Up to Date: Yes - Suicide/Smoking/Psychosocial Hx Smoking Status: No Smoking History: Never smoked Have you smoked in the past 12 months: No Number of Cigarettes Smoked Daily: 0 If you are a former smoker, when did you quit?: 0 Cigars Per Day: 0 Information on smoking cessation initiated: No 'Breaking Loose' booklet given: 09/22/17 Hx Alcohol Use: Yes Drug/Substance Use Hx: No Substance Use Type: Alcohol Hx Substance Use Treatment: Yes ([facility] 04/05/18 to 04/08/18) Review of Systems - Review of Systems Able to Perform ROS?: No (intoxicated) *Physical Exam - Vital Signs Last Vital Signs Temp Pulse Resp BP Pulse Ox 98 F 90 18 110/70 98 09/27/18 18:06 09/27/18 18:06 09/27/18 18:06 09/27/18 18:06 09/27/18 18:06 - Physical Exam Comments: GENERAL: Intoxicated, lethargic. No apparent distress. Smells of urine. HEENT: Normocephalic, atraumatic. CARDIOVASCULAR: Normal S1, S2. Regular rate and rhythm. PULMONARY: No evidence of respiratory distress. Lungs clear to auscultation bilaterally. No wheezing, rales or rhonchi. ABDOMEN: Soft, non-distended, non-tender. EXTREMITIES: Limited ROM in lower extremities. No gross deformities. SKIN: Warm, dry. No rash NEUROLOGICAL: No focal neurological deficits. Medical Decision Making - Medical Decision Making 63M w/ a history of EtOH abuse, chronic back pain, HTN, mesothelioma presents to the ED intoxicated. He drank a significant amount of alcohol. He states he only wants to sleep and nothing has changed from his visit yesterday or the day before. He asks to be constantly updated regarding the [employer] game scores and wants his dinner hot. He states he needs to drink 3 more rounds before he is ready to be done. Patient has left the ER and went to the first floor to find refreshments. He reports he will be back shortly. DDx IBNLT: intoxication Plan: TLC, wait for clinical sobriety, DC when he is ready to leave the ED. *DC/Admit/Observation/Transfer Diagnosis at time of Disposition: Alcohol intoxication, Alcohol abuse - Discharge Dispostion Disposition: HOME Condition at time of disposition: Stable Decision to Admit order: No - Referrals - Patient Instructions Printed Discharge Instructions: DI for Alcohol Abuse - Post Discharge Activity
--- NOTE | 2018-09-27 20:17 | PDOC ---
Documentation entered by Kamari Flores SCRIBE, acting as scribe for Fernie Rosenthal MD. Attending Attestation - Resident Resident Name: Stevenson Jiang - ED Attending Attestation I have performed the following: I have examined & evaluated the patient, The case was reviewed & discussed with the resident, I agree w/resident's findings & plan, Exceptions are as noted - HPI HPI: 09/27/18 19:56 Patient is a 63 year old male with a significant past medical history of EtOH abuse, chronic back pain, HTN,mesothelioma who presents to the ED intoxicated. Patient reports ingesting a significant amount of alcohol earlier today. Pt states he is hungry and wants to eat dinner and sleep at this time. After interview, patient states he is going to the first floor to find refreshments. He reports he will be back shortly. Denies chest pain, sob. Deneis nausea, vomiting. Denies fevers, chills. Denies diarrhea, constipation. Denies dysuria, hematuria. Denies contact with sick individuals, out of state travelling. Denies trauma. Allergies: None Social history: Current alcohol use. No illicit drugs. No smoking. Surgical history: None PMD: None - Physicial Exam PE: 09/27/18 20:15 agree with resident exam Disheveled, in NAD. Ambulating in ED with steady gait - Medical Decision Making 09/27/18 20:15 63yo M, well known to this ED, presents requesting dinner and a place to sleep Vitals wnl Exam with no gross evidence of trauma Pt clinically sober, with no complaints Stable for DC home I discussed the physical exam findings, ancillary test results and final diagnoses with the patient. I answered all of the patient's questions. The patient was satisfied with the care received and felt comfortable with the discharge plan and treatment plan. The patient will call their primary care physician within 24 hours to arrange follow-up and will return to the Emergency Department with any new, persistent or worsening symptoms. Fernie Rosenthal MD: This documentation has been prepared by the hollandibeMark Matthew, SCRIBE, under my direction and personally reviewed by me in its entirety. I confirm that the documentation accurately reflects all work, treatment, procedures, and medical decision making performed by me.
== END 2018-09-27 19:00 | disposition home or self-care (01) ==
LOC: JER 18:00
DX: F10.220 Alcohol dependence with intoxication, uncomplicated (principal); I10 Essential (primary) hypertension; C45.9 Mesothelioma, unspecified; Z59.0 Homelessness
CPT/HCPCS: 99281-25

== ENCOUNTER 2018-09-27 20:35 | Emergency (ER) | payer OTHER ==
--- NOTE | 2018-09-27 20:38 | PDOC ---
Rapid Medical Evaluation Time Seen by Provider: 09/27/18 20:36 Medical Evaluation: Allergies Allergy/AdvReac Type Severity Reaction Status Date / Time Fish Containing Products Allergy Mild Swelling Verified 09/27/18 18:08 No Known Drug Allergies Allergy Verified 09/27/18 18:08 09/27/18 20:36 I have performed a brief in-person evaluation of this patient. The patient presents with a chief complaint of: back pain Pertinent physical exam findings: no bony tenderness. No crepitus or step-offs. Ambulatory with steady gait. I have ordered the following: nothing The patient will proceed to the ED for further evaluation. 09/27/18 20:39 Discharge Disposition - Diagnosis Back pain - Referrals - Patient Instructions - Post Discharge Activity
[2018-09-27 20:39] VITALS: BP 120/78; PULSE 104; TEMP 98.4; BMI 47.0
--- NOTE | 2018-09-28 00:16 | PDOC ---
History of Present Illness - General Chief Complaint: Shortness of Breath Stated Complaint: BACK PAIN Time Seen by Provider: 09/27/18 20:36 History Source: Patient Exam Limitations: Intoxication - History of Present Illness Initial Comments: 63M w/ a history of EtOH abuse, chronic back pain, HTN, mesothelioma presents to the ED intoxicated. He drank a significant amount of alcohol. He states he only wants to sleep and nothing has changed from his visit yesterday or the day before. Her asks to be constantly updated regarding the [employer] game scores and wants his dinner hot. He states he needs to drink 3 more rounds before he is ready to be done. Patient has left the ER and went to the first floor to find refreshments. He reports he will be back shortly. PCP: Dr. Garima Bridges PSH: None reported Allergies: Fish products Social Hx: 1 pint of alcohol daily, since age 16 Past History - Past Medical History Allergies/Adverse Reactions: Allergies Allergy/AdvReac Type Severity Reaction Status Date / Time Fish Containing Products Allergy Mild Swelling Verified 09/27/18 20:39 No Known Drug Allergies Allergy Verified 09/27/18 20:39 Home Medications: Ambulatory Orders NK [No Known Home Medication] 08/14/18 Anemia: No Asthma: No Cancer: Yes (mesothelioma lung cancer) Cardiac Disorders: No CVA: No COPD: No CHF: No DVT: No Dementia: No Diabetes: No GI Disorders: No Disorders: No HTN: Yes (non compliance) Hypercholesterolemia: No Kidney Stones: No Liver Disease: No Psychiatric Problems: Yes (etoh) Seizures: No Thyroid Disease: No - Surgical History Abdominal Surgery: No Appendectomy: No Cardiac Surgery: No Cholecystectomy: No Lung Surgery: No Neurologic Surgery: No Orthopedic Surgery: No - Family Disease History Family Disease History: CA: Mother - Reproductive History Testicular Surgery: No - Immunization History TDAP Vaccination: Yes Immunization Up to Date: Yes - Suicide/Smoking/Psychosocial Hx Smoking Status: No Smoking History: Unknown if ever smoked Have you smoked in the past 12 months: No Number of Cigarettes Smoked Daily: 0 If you are a former smoker, when did you quit?: 0 Cigars Per Day: 0 'Breaking Loose' booklet given: 09/22/17 Hx Alcohol Use: Yes Drug/Substance Use Hx: No Substance Use Type: Alcohol Hx Substance Use Treatment: Yes ([facility] 04/05/18 to 04/08/18) Review of Systems - Review of Systems Able to Perform ROS?: No (intoxicated) *Physical Exam - Vital Signs Last Vital Signs Temp Pulse Resp BP Pulse Ox 98.4 F 104 H 20 120/78 99 09/27/18 20:36 09/27/18 20:36 09/27/18 20:36 09/27/18 20:36 09/27/18 20:36 - Physical Exam Comments: GENERAL: Intoxicated, lethargic. No apparent distress. Smells of urine. HEENT: Normocephalic, atraumatic. CARDIOVASCULAR: Normal S1, S2. Regular rate and rhythm. PULMONARY: No evidence of respiratory distress. Lungs clear to auscultation bilaterally. No wheezing, rales or rhonchi. ABDOMEN: Soft, non-distended, non-tender. EXTREMITIES: Limited ROM in lower extremities. No gross deformities. SKIN: Warm, dry. No rash NEUROLOGICAL: No focal neurological deficits. Medical Decision Making - Medical Decision Making 63M w/ a history of EtOH abuse, chronic back pain, HTN, mesothelioma presents to the ED intoxicated. He drank a significant amount of alcohol. He states he only wants to sleep and nothing has changed from his visit yesterday or the day before. He asks to be constantly updated regarding the [employer] game scores and wants his dinner hot. He states he needs to drink 3 more rounds before he is ready to be done. Patient has left the ER and went to the first floor to find refreshments. He reports he will be back shortly. VS: Mildly tachycardic DDx IBNLT: intoxication Plan: TLC, wait for clinical sobriety, DC when he is ready to leave the ED. *DC/Admit/Observation/Transfer Diagnosis at time of Disposition: Back pain, Alcohol abuse - Discharge Dispostion Disposition: HOME Condition at time of disposition: Stable Decision to Admit order: No - Referrals Referrals: Garima Bridges MD [Primary Care Provider] - - Patient Instructions Printed Discharge Instructions: DI for Alcohol Abuse - Post Discharge Activity
== END 2018-09-28 06:38 | disposition home or self-care (01) ==
LOC: SUPCPDRO 20:35 → JER 20:35
DX: F10.220 Alcohol dependence with intoxication, uncomplicated (principal); M54.5 Low back pain; G89.29 Other chronic pain; I10 Essential (primary) hypertension; C45.9 Mesothelioma, unspecified; Z59.0 Homelessness
CPT/HCPCS: 99281-25

== ENCOUNTER 2018-09-28 06:43 | Inpatient (IN) | payer OTHER ==
[2018-09-28 06:48] VITALS: BMI 34.9
[2018-09-28] MEDS ORDERED: SODIUM CHLORIDE 0.9% 1000 ML INFUS.BAG IV ONE (07:58)
[2018-09-28] MEDS ORDERED: ACETAMINOPHEN 1000 MG/100 ML VIAL (NON FORMULARY) IVPB ONE (07:58)
--- NOTE | 2018-09-28 08:00 | PDOC ---
History of Present Illness - General Chief Complaint: Chest Pain Stated Complaint: ALCOHOL WITHDRAWAL Time Seen by Provider: 09/28/18 07:34 - History of Present Illness Initial Comments: 09/28/18 10:51 63 years old past [facility] history significant for chronic alcohol abuse, mesothelioma, hypertension who presents to the emergency department with several day history of subjective fever chills cough with sputum and chest tightness and discomfort Symptoms are mild to moderate persistent constant no exacerbating or alleviating factors. Past History - Past Medical History Allergies/Adverse Reactions: Allergies Allergy/AdvReac Type Severity Reaction Status Date / Time Fish Containing Products Allergy Mild Swelling Verified 09/28/18 06:49 No Known Drug Allergies Allergy Verified 09/28/18 06:49 Home Medications: Ambulatory Orders NK [No Known Home Medication] 08/14/18 Anemia: No Asthma: No Cancer: Yes (mesothelioma lung cancer) Cardiac Disorders: No CVA: No COPD: No CHF: No DVT: No Dementia: No Diabetes: No GI Disorders: No Disorders: No HTN: Yes (non compliance) Hypercholesterolemia: No Kidney Stones: No Liver Disease: No Psychiatric Problems: Yes (etoh) Seizures: No Thyroid Disease: No - Surgical History Abdominal Surgery: No Appendectomy: No Cardiac Surgery: No Cholecystectomy: No Lung Surgery: No Neurologic Surgery: No Orthopedic Surgery: No - Family Disease History Family Disease History: CA: Mother - Reproductive History Testicular Surgery: No - Immunization History TDAP Vaccination: Yes Immunization Up to Date: Yes - Suicide/Smoking/Psychosocial Hx Smoking Status: No Smoking History: Smoker current status UNK Have you smoked in the past 12 months: No Number of Cigarettes Smoked Daily: 0 If you are a former smoker, when did you quit?: 0 Cigars Per Day: 0 'Breaking Loose' booklet given: 09/22/17 Hx Alcohol Use: Yes Drug/Substance Use Hx: No Substance Use Type: Alcohol Hx Substance Use Treatment: Yes ([facility] 04/05/18 to 04/08/18) Review of Systems - Review of Systems Comments:: 09/28/18 10:52 ROS: A complete review of 10 out of 10 review of systems is taken and is negative apart from what is previously mentioned below and in the HPI. *Physical Exam - Vital Signs Last Vital Signs Temp Pulse Resp BP Pulse Ox 98.5 F 108 H 22 H 147/88 96 09/28/18 06:45 09/28/18 06:45 09/28/18 06:45 09/28/18 06:45 09/28/18 06:45 - Physical Exam Comments: 09/28/18 10:52 Vitals: Triage Vital signs reviewed General Appearance: no acute distress, well nourished well developed, Head: Atraumatic, Neck: Supple;No Nucal rigidity Chest Wall: Nontender Cardiac: Regular rate and rhythym, no murmurs, no rubs, no gallops, Lungs: Coarse Breath Sounds, mildly tachypneic Abdomen: Soft, non distended, normal bowel sounds, non tender to palpation Extremities: Full range of motion to all extremities, no cyanosis, clubbing, or edema Skin: Warm and dry, no rashes or lesions, no rash, no petechiae Psych: normal mood, normal affect Heart Score/ECG Review - ECG Impressions Comment:: 09/28/18 10:58 EKG performed at 846 demonstrates sinus rhythm no ST elevations or T-wave inversions left axis deviation. Interpreted by me. ED Treatment Course - LABORATORY CBC & Chemistry Diagram: 09/28/18 09:35 09/28/18 09:32 - RADIOLOGY Radiology Studies Ordered: Category Date Time Status CXRPORT [CHEST X-RAY PORTABLE*] [RAD] Stat Radiology 09/28/18 07:34 Ordered Medical Decision Making - Medical Decision Making 09/28/18 10:57 Patient with clinical signs of pneumonia subjective fever chills tachypnea coarse breath sounds cough and sputum Chest x-ray shows new infiltrate Laboratory analysis unremarkable Patient is undomiciled cannot safely be discharged with outpatient antibiotics as he has no way to procure antibiotics. Discussed with Care management, no immediately available safe discharge plan. We'll observe overnight initiate IV antibiotics have care management see patient to establish safe outpatient transition care plan *DC/Admit/Observation/Transfer Diagnosis at time of Disposition: Pneumonia Qualifiers: Pneumonia type: due to unspecified organism Laterality: left Lung location: lower lobe of lung Qualified Code(s): J18.1 - Lobar pneumonia, unspecified organism - Discharge Dispostion Condition at time of disposition: Fair Decision to Admit order: Yes - Referrals - Patient Instructions - Post Discharge Activity
[2018-09-28] MEDS ORDERED: ALBUTEROL SO4 2.5/IPRATROPIUM 0.5 INH SOL 3 ML VIAL.NEB. NEB ONE (08:05)
[2018-09-28 09:55] LABS: BASO % 0.6 % (0-2.0); EOS % 1.7 % (0-4.5); HEMATOCRIT 32.7 % (35.4-49); HEMOGLOBIN 10.8 GM/dL (11.7-16.9); LYMPH % 13.2 % (8-40); MCH 27.7 pg (25.7-33.7); MCHC 32.9 g/dl (32.0-35.9); MEAN CELL VOLUME 84.1 fl (80-96); MEAN PLT VOLUME 7.6 fl (7.5-11.1); MONO % 8.9 % (3.8-10.2); NEUT % 75.6 % (42.8-82.8); PLATELET COUNT 163 K/MM3 (134-434); RBC 3.89 M/mm3 (4.00-5.60); RDW 21.5 % (11.9-15.9); WHITE BLOOD COUNT 7.6 K/mm3 (4.0-10.0)
[2018-09-28 10:21] LABS: ALBUMIN 3.5 g/dl (3.4-5.0); ALK PHOS 123 U/L (45-117); ANION GAP 10 MMOL/L (8-16); BILIRUBIN,TOTAL 0.8 mg/dL (0.2-1); BLOOD UREA NITROGEN 12 mg/dL (7-18); CALCIUM 8.5 mg/dL (8.5-10.1); CHLORIDE 98 mmol/L (98-107); CO2 27 mmol/L (21-32); CREATININE 1.4 mg/dL (0.55-1.3); GLUCOSE,RANDOM 78 mg/dL (74-106); SGOT/AST 54 U/L (15-37); SGPT/ALT 30 U/L (13-61); SODIUM 134 mmol/L (136-145); TOT PROT 7.2 g/dl (6.4-8.2)
[2018-09-28] MEDS ORDERED: chlordiazePOXIDE HCL 25 MG CAPSULE PO ONE (10:50)
[2018-09-28 11:16] LABS: MAGNESIUM 1.8 mg/dL (1.8-2.4)
[2018-09-28] MEDS: KCL 10 MEQ IVPB 10 MEQ/100 ML INFUS.BAG IVPB SCH ×4 (11:51→16:27)
[2018-09-28] MEDS: POTASSIUM CHLORIDE TABS 20 MEQ TABLET.ER (FP) PO ONE ×2 (11:51→12:08)
[2018-09-28 14:00] LABS: ANISOCYTOSIS 1+; MACROCYTOSIS 1+; OVALOCYTE 1+; PLATELET ESTIMATE DECREASED; TEAR DROP CELLS 1+
--- NOTE | 2018-09-28 14:10 | HP ---
CHIEF COMPLAINT: fevers, chills, congestion and cough PCP: HISTORY OF PRESENT ILLNESS: Patient is a 63 years old male with a past medical history significant for chronic alcohol abuse, mesothelioma and hypertension. He who presents to the emergency department with several day history of subjective fevers accompanied by chills, congestion and cough. He also reports chest tightness and discomfort. Patient with multiple ED visits including mechanical fall, alcohol intoxication, lower ext cellulitis and wound infection. He is currently homeless and lives in a care home. Patient denies headache, blurring of vision, tingling, numbness, abdominal pain , vomiting. He states he drinks 1 pint of vodka daily. He is noted to have upper body tremors at rest, headaches, mild nausea. Since he chronically abuses ETOH, concerned over patient going into acute alcohol withdrawal, therefore will start on libirium protocol. ER course was notable for: (1) Afebrile, no leukocytosis (2) Levaquin 750mg (3) Recent Travel: PAST MEDICAL HISTORY: PAST SURGICAL HISTORY: Social History: Smoking: Alcohol: Drugs: Family History: Allergies Fish Containing Products Allergy (Mild, Verified 09/28/18 06:49) Swelling No Known Drug Allergies Allergy (Verified 09/28/18 06:49) HOME MEDICATIONS: Home Medications Medication Instructions Recorded NK [No Known Home Medication] 08/14/18 PHYSICAL EXAMINATION Vital Signs - 24 hr 09/28/18 09/28/18 06:45 12:50 Temperature 98.5 F Pulse Rate 108 H Pulse Rate [ 99 H Right] Respiratory 22 H 20 Rate Blood Pressure 147/88 Blood Pressure 139/78 [Right Arm] O2 Sat by Pulse 96 Oximetry (%) GENERAL: Awake, alert, and fully oriented, HEAD: Normal with no signs of trauma. EYES: Pupils equal, round and reactive to light, extraocular movements intact, sclera anicteric, conjunctiva clear. No lid lag. EARS, NOSE, THROAT: Ears normal, nares patent, oropharynx clear without exudates. Moist mucous membranes. NECK: Normal range of motion, supple without lymphadenopathy, JVD, or masses. LUNGS: course breath sounds, mildly tachypneic, congested on anterior lobes. HEART: Regular rate and rhythm, ABDOMEN: Soft, nontender, obese abdomen, normoactive bowel sounds, no guarding, no rebound, no masses. No hepatomegaly or splenomegaly. MUSCULOSKELETAL: Normal range of motion at all joints. No bony deformities or tenderness. No CVA tenderness. UPPER EXTREMITIES: 2+ pulses, warm, well-perfused. No cyanosis. No clubbing. No peripheral edema. LOWER EXTREMITIES: 2+ pulses, warm, well-perfused. No calf tenderness. No peripheral edema. NEUROLOGICAL: Normal speech. PSYCHIATRIC: Cooperative. Good eye contact. Appropriate mood and affect. SKIN: Warm, dry, normal turgor, no rashes or lesions noted, normal capillary refill. Laboratory Results - last 24 hr 09/28/18 09/28/18 09:32 09:35 WBC 7.6 RBC 3.89 L Hgb 10.8 L Hct 32.7 L MCV 84.1 MCH 27.7 MCHC 32.9 RDW 21.5 H Plt Count 163 D MPV 7.6 Absolute Neuts (auto) 5.7 Neutrophils % 75.6 D Lymphocytes % 13.2 D Monocytes % 8.9 Eosinophils % 1.7 Basophils % 0.6 Nucleated RBC % 0 Hypochromia 0 Platelet Estimate Decreased Polychromasia 1+ Poikilocytosis 1+ Anisocytosis 1+ Microcytosis 1+ Macrocytosis 1+ Tear Drop Cells 1+ Ovalocytes 1+ Sodium 134 L Potassium 3.0 L Chloride 98 Carbon Dioxide 27 Anion Gap 10 BUN 12 Creatinine 1.4 H Creat Clearance w eGFR 51.18 Random Glucose 78 Calcium 8.5 Magnesium 1.8 Total Bilirubin 0.8 AST 54 H ALT 30 Alkaline Phosphatase 123 H Troponin I < 0.02 Total Protein 7.2 Albumin 3.5 ASSESSMENT/PLAN: Patient is a 63 year old male with PMHx of Alcohol abuse, Mesothelioma (Dx 4 yrs ago), HTN (not on meds), chronic back pain, recent right humerus fracture, recently treated for B/L lower ext wound infection on (MSSA, Enterococcus) presented to the ED with cough, subjective fevers and c/o congestion concerning for acute pneumonia. Pulm: Pneumonia rule out Possible Community acquired pnemonia presents with congestion, subjective fever and chills chest xray with new atelectasis/infiltrative changes of left base with questionable fluid since xray done 09/19/18 Start duonebs, Levaquin will flu swa blood cultures pending Pulmonary consult Mesothelioma f/up as outpatient Psyche: Alcohol intoxication CIWA score 8. Patient now has withdrawal symptoms. Libirum protocol started will consult addition medicine Give banana bag x 1, start on thiamine and folic acid Low K on admission, but refusing replacement in the ED Card: Hypertension started on Amlodipine 5mg last admission, Will restart Amlodipine heme: Iron def anemia recheck cbc/start iron supplements fen Banana bag 1 Electrolytes daily Regular diet Prophylaxis Lovenox 40mg sq daily Protonix 40mg Visit type - Emergency Visit Emergency Visit: Yes ED Registration Date: 09/28/18 Care time: The patient presented to the Emergency Department on the above date and was hospitalized for further evaluation of their emergent condition. - New Patient This patient is new to me today: Yes Date on this admission: 09/28/18 - Critical Care Critical Care patient: No
[2018-09-28] MEDS ORDERED: ACETAMINOPHEN 325 MG TABLET (FP) PO PRN (14:20)
[2018-09-28] MEDS ORDERED: chlordiazePOXIDE HCL 25 MG CAPSULE PO PRN (14:22)
[2018-09-28] MEDS ORDERED: FOLIC ACID INJECTION - 1 MG, THIAMINE HCL 100 MG, MULTIVIT INJECTION ADULT 10 ML in SOD... IVPB ONE (15:00)
--- NOTE | 2018-09-28 15:36 | EKG ---
Test Reason : Blood Pressure : / mmHG Vent. Rate : 093 BPM Atrial Rate : 093 BPM P-R Int : 146 ms QRS Dur : 096 ms QT Int : 382 ms P-R-T Axes : 041 -33 046 degrees QTc Int : 474 ms SINUS RHYTHM WITH PREMATURE ATRIAL COMPLEXES LEFT AXIS DEVIATION ABNORMAL ECG WHEN COMPARED WITH ECG OF 19-SEP-2018 15:17, PREMATURE ATRIAL COMPLEXES ARE NOW PRESENT Confirmed by Zachary Perrin ([id number]) on 09/28/2018 3:36:03 PM Referred By: Confirmed By:Zachary Perrin
[2018-09-28] MEDS: ALBUTEROL SO4 2.5/IPRATROPIUM 0.5 INH SOL 3 ML VIAL.NEB. NEB SCH ×2 (15:40→20:45)
[2018-09-28] MEDS: chlordiazePOXIDE HCL 25 MG CAPSULE PO SCH ×2 (17:38→22:58)
[2018-09-29] MEDS: chlordiazePOXIDE HCL 25 MG CAPSULE PO SCH ×2 (05:29→10:26)
[2018-09-29] MEDS: ALBUTEROL SO4 2.5/IPRATROPIUM 0.5 INH SOL 3 ML VIAL.NEB. NEB SCH ×2 (08:00→11:55)
[2018-09-29] MEDS ORDERED: PANTOPRAZOLE 40 MG TABLET (FP) PO SCH (10:00)
[2018-09-29] MEDS ORDERED: THIAMINE HCL 100 MG TABLET (FP) PO SCH (10:00)
[2018-09-29] MEDS ORDERED: amLODIPine BESYLATE 5 MG TABLET (FP) PO SCH (10:00)
[2018-09-29] MEDS ORDERED: FOLIC ACID 1 MG TABLET (FP) PO SCH (10:00)
[2018-09-29] MEDS ORDERED: ASPIRIN COATED 81 MG TABLET.EC PO SCH (10:00)
[2018-09-29] MEDS ORDERED: ENOXAPARIN NA (PORCINE) 40 MG/0.4 ML DISP.SYRIN SQ SCH (10:00)
--- NOTE | 2018-09-29 14:38 | PN ---
Progress Note (short form) - Note Progress Note: PULMONARY CONSULTATION DICTATED 09/29/18 IMP R/O PNEUMONIA LLL ETOH ABUSE ? H/O MESOTHELIOMA HTN HYPOKALEMIA PLAN ABX CULTURES DETOX PROTOCOL CHEST CT INHALED BRONCHODILATORS O2 NEEDED REPLETE SARI LUCAS Problem List - Problems (1) Pneumonia Code(s): J18.9 - PNEUMONIA, UNSPECIFIED ORGANISM Qualifiers: Pneumonia type: due to unspecified organism Laterality: left Lung location: lower lobe of lung Qualified Code(s): J18.1 - Lobar pneumonia, unspecified organism (2) Alcohol dependence with intoxication Code(s): F10.229 - ALCOHOL DEPENDENCE WITH INTOXICATION, UNSPECIFIED (3) Alcohol withdrawal Code(s): F10.239 - ALCOHOL DEPENDENCE WITH WITHDRAWAL, UNSPECIFIED (4) HTN (hypertension) Code(s): I10 - ESSENTIAL (PRIMARY) HYPERTENSION Qualifiers: Hypertension type: essential hypertension Qualified Code(s): I10 - Essential (primary) hypertension (5) Homelessness Code(s): Z59.0 - HOMELESSNESS (6) Hypokalemia Code(s): E87.6 - HYPOKALEMIA
--- NOTE | 2018-09-29 15:14 | CONS ---
DATE OF CONSULTATION: 09/29/2018 REFERRING PROVIDER: ELVIA Soria The patient is a 63-year-old white male with a past medical history of EtOH abuse, questionable history of mesothelioma, states that he was diagnosed 5 years ago at [facility], never had a biopsy, never treated, nonsmoker, history of asbestos exposure, also hypertension, admitted to [facility] on September 28 with several-day history of subjective fever, chills, cough, and chest congestion. The patient states that the cough is productive of yellow sputum. He also complains of chest tightness and discomfort. The patient had a chest x-ray performed, which revealed evidence of a left basilar opacity, which is new from exam. He was admitted. He was started on broad-spectrum antibiotics for possible pneumonia. Patient is a nonsmoker. He denies any history of COPD or asthma in the past. He is currently homeless. 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 Past medical history, again, includes hypertension, EtOH abuse, mesothelioma, chronic back pain, recent right humeral fracture. Current medications include Levaquin 500 mg daily, Lovenox, Librium, folic acid, thiamine, and Protonix. REVIEW OF SYSTEMS: Positive cough, positive chest congestion, positive subjective fever. No chest pain, no palpitations, no nausea, no vomiting, no hemoptysis. PHYSICAL EXAMINATION: General: The patient is a well-developed, well-nourished male, awake, in no acute distress. Vital Signs: He is afebrile. HEENT: Normocephalic, atraumatic. Neck: Supple. Heart: Regular, S1, S2. Chest: A few scattered rhonchi. Abdomen: Soft. Bowel sounds positive. Extremities: No cyanosis, edema. Chest x-ray: Left lower lobe consolidation, effusion. IMPRESSION: 1. Fever, chills, congestion, pneumonia of left lower lobe. 2. EtOH abuse. 3. Questionable history of mesothelioma. 4. Hypertension. 5. Hypokalemia. PLAN: Antibiotic therapy, supplemental O2, inhaled bronchodilators as needed. Obtain CT scan of the chest. Continue detox protocol. Librium, thiamine. Monitor electrolytes. TABATHA LUCAS M.D. [id number]
[2018-09-29] MEDS ORDERED: CEFTRIAXONE 2 GM in DEXTROSE 5%-WATER 100 ML IVPB SCH (15:15)
[2018-09-29 15:34] VITALS: BP 149/87; PULSE 93; TEMP 98
[2018-09-29] MEDS ORDERED: DEXTROSE 5%-WATER 100 ML IVPB ONE (15:40)
[2018-09-29] MEDS ORDERED: chlordiazePOXIDE HCL 25 MG CAPSULE PO SCH (17:00)
--- NOTE | 2018-09-29 17:19 | PN ---
Physical Exam: SUBJECTIVE: Patient seen and examined at the bedside. feels better, in no acute distress. states breathing improving. OBJECTIVE: Vital Signs Period Temp Pulse Resp BP Sys/Jang Pulse Ox Last 24 Hr 98.0 F-99.1 F 76-96 16-20 127-149/74-87 96 GENERAL: Awake, alert, and fully oriented, HEAD: Normal with no signs of trauma. EYES: Pupils equal, round and reactive to light, extraocular movements intact, sclera anicteric, conjunctiva clear. No lid lag. EARS, NOSE, THROAT: Ears normal, nares patent, oropharynx clear without exudates. Moist mucous membranes. NECK: Normal range of motion, supple without lymphadenopathy, JVD, or masses. LUNGS: course breath sounds, mildly tachypneic, congested on anterior lobes. HEART: Regular rate and rhythm, ABDOMEN: Soft, nontender, obese abdomen, normoactive bowel sounds, no guarding, no rebound, no masses. No hepatomegaly or splenomegaly. MUSCULOSKELETAL: Normal range of motion at all joints. No bony deformities or tenderness. No CVA tenderness. UPPER EXTREMITIES: 2+ pulses, warm, well-perfused. No cyanosis. No clubbing. No peripheral edema. LOWER EXTREMITIES: 2+ pulses, warm, well-perfused. No calf tenderness. No peripheral edema. NEUROLOGICAL: Normal speech. PSYCHIATRIC: Cooperative. Good eye contact. Appropriate mood and affect. SKIN: Warm, dry, normal turgor, no rashes or lesions noted, normal capillary refill. Active Medications Generic Name Dose Route Start Last Admin Trade Name Freq PRN Reason Stop Dose Admin Acetaminophen 650 mg 09/28/18 14:20 Tylenol - PO Q6H PRN FEVER Albuterol/Ipratropium 1 amp 09/28/18 16:00 09/29/18 11:55 Duoneb - NEB Not Given RQID CAREY Amlodipine Besylate 5 mg 09/29/18 10:00 09/29/18 10:26 Norvasc - PO 5 mg DAILY CAREY Administration Aspirin 81 mg 09/29/18 10:00 09/29/18 10:26 Ecotrin - PO 81 mg DAILY CAREY Administration Chlordiazepoxide HCl 10 mg 09/30/18 17:00 Librium - PO 10/01/18 11:01 [id number] CAREY Chlordiazepoxide HCl 10 mg 10/01/18 17:00 Librium - PO 10/02/18 17:01 Q12H CARYE Chlordiazepoxide HCl 10 mg 09/30/18 17:00 Librium - PO 10/01/18 17:00 Q4H PRN WITHDRAWAL(CONT SUBST) Chlordiazepoxide HCl 25 mg 09/29/18 17:00 Librium - PO 09/30/18 11:01 [id number] CAREY Chlordiazepoxide HCl 25 mg 09/28/18 14:22 Librium - PO 09/30/18 17:00 Q4H PRN WITHDRAWAL(CONT SUBST) Enoxaparin Sodium 40 mg 09/29/18 10:00 09/29/18 10:27 Lovenox - SQ 40 mg DAILY CAREY Administration Folic Acid 1 mg 09/29/18 10:00 09/29/18 10:26 Folic Acid - PO 1 mg DAILY CAREY Administration Ceftriaxone Sodium 2 gm/ 100 mls @ 200 mls/hr 09/29/18 15:15 09/29/18 15:50 Dextrose IVPB 200 mls/hr DAILY CAREY Administration Protocol Pantoprazole Sodium 40 mg 09/29/18 10:00 09/29/18 10:26 Protonix - PO 40 mg DAILY CAREY Administration Thiamine HCl 100 mg 09/29/18 10:00 09/29/18 10:31 Vitamin B1 - PO 100 mg DAILY CAREY Administration ASSESSMENT/PLAN: Patient is a 63 year old male with PMHx of Alcohol abuse, Mesothelioma (Dx 4 yrs ago), HTN (not on meds), chronic back pain, recent right humerus fracture, recently treated for B/L lower ext wound infection on (MSSA, Enterococcus) presented to the ED with cough, subjective fevers and c/o congestion concerning for acute pneumonia. Pulm: Possible Community acquired pnemonia presents with congestion, subjective fever and chills chest xray with new atelectasis/infiltrative changes of left base with questionable fluid since xray done 09/19/18 On duonebs, Levaquin, changed to ceftriaxone blood cultures pending Pulmonary consult Mesothelioma f/up as outpatient. 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 Psyche: Alcohol intoxication CIWA score 8. Patient presents with withdrawal symptoms. On libirum protocol Given banana bag and started on thiamine and folic acid Low K on admission, but refusing replacement in the ED, will replete with banana bag. Card: Hypertension started on Amlodipine 5mg last admission, Will restart Amlodipine heme: Iron def anemia recheck cbc/start iron supplements fen Banana bag 1 Electrolytes daily Regular diet Prophylaxis Lovenox 40mg sq daily Protonix 40mg Visit type - Emergency Visit Emergency Visit: Yes ED Registration Date: 09/28/18 Care time: The patient presented to the Emergency Department on the above date and was hospitalized for further evaluation of their emergent condition. - New Patient This patient is new to me today: No - Critical Care Critical Care patient: No - Discharge Referral Referred to [facility] Med P.C.: No
--- NOTE | 2018-09-29 17:54 | DS ---
Physical Exam: SUBJECTIVE: Patient seen and examined OBJECTIVE: informed that patient signed out AMA Vital Signs Period Temp Pulse Resp BP Sys/Jang Pulse Ox Last 24 Hr 98.0 F-99.1 F 76-96 16-20 127-149/74-87 96 PHYSICAL EXAM GENERAL: The patient is awake, alert, and fully oriented, in no acute distress. HEAD: Normal with no signs of trauma. EYES: PERRL, extraocular movements intact, sclera anicteric, conjunctiva clear. see progress note physical exam LABS HOSPITAL COURSE: Date of Admission:09/28/18 Date of Discharge: 09/29/18 informed by primary RN that patient signed out AMA Minutes to complete discharge: 40 Discharge Summary Reason For Visit: PNEUMONIA Condition: Poor - Instructions Disposition: AGAINST MEDICAL ADVICE - Home Medications Comprehensive Discharge Medication List: Ambulatory Orders NK [No Known Home Medication] 08/14/18 This patient is new to me today: No Emergency Visit: Yes ED Registration Date: 09/28/18 Care time: The patient presented to the Emergency Department on the above date and was hospitalized for further evaluation of their emergent condition. Critical Care patient: No - Discharge Referral Referred to [facility] Med P.C.: No
[2018-09-30] MEDS ORDERED: chlordiazePOXIDE HCL 10 MG CAPSULE PO SCH (17:00)
[2018-09-30] MEDS ORDERED: chlordiazePOXIDE 5 MG CAPSULE PO PRN (17:00)
[2018-10-01] MEDS ORDERED: chlordiazePOXIDE 5 MG CAPSULE PO SCH (17:00)
== END 2018-09-29 17:33 | disposition left against medical advice (07) | DRG 139 ==
LOC: JER 06:43 → JERBED 11:00 → OBSVTOIN 11:00 → J5S 13:34
PROVIDERS: ADMIT Internal Medicine; ATTEND Nurse Practitioner Family
PROC: HZ2ZZZZ Detoxification Services for Substance Abuse Treatment (ICD-10-PCS; principal; 2018-09-28)
DX: J18.9 Pneumonia, unspecified organism (principal); F10.229 Alcohol dependence with intoxication, unspecified; J98.11 Atelectasis; E87.6 Hypokalemia; Z59.0 Homelessness; F10.239 Alcohol dependence with withdrawal, unspecified; C45.9 Mesothelioma, unspecified; I10 Essential (primary) hypertension; D50.9 Iron deficiency anemia, unspecified
CPT/HCPCS: 36415; 71045-TC-FY; 80053; 83735; 84484; 85025; 87040; 93005; 93010; 94640; 99285-25; J0131; J7030

== ENCOUNTER 2018-10-04 14:05 | Emergency (ER) | payer OTHER ==
--- NOTE | 2018-10-04 14:18 | PDOC ---
Rapid Medical Evaluation Time Seen by Provider: 10/04/18 14:13 Medical Evaluation: Allergies Allergy/AdvReac Type Severity Reaction Status Date / Time Fish Containing Products Allergy Mild Swelling Verified 09/28/18 06:49 No Known Drug Allergies Allergy Verified 09/28/18 06:49 10/04/18 14:13 I have performed a brief in-person evaluation of this patient. The patient presents with a chief complaint of: called EMS from street for back pain, deies new trauma. Appears intoxicated at triage Pertinent physical exam findings:Stable and well mo I have ordered the following:nothing The patient will proceed to the ED for further evaluation. 10/04/18 14:19 Discharge Disposition - Diagnosis Alcohol dependence with intoxication Qualifiers: Complication of substance-induced condition: uncomplicated Qualified Code(s): F10.220 - Alcohol dependence with intoxication, uncomplicated - Referrals - Patient Instructions - Post Discharge Activity
[2018-10-04 14:20] VITALS: BMI 33.0
--- NOTE | 2018-10-04 15:45 | PDOC ---
History of Present Illness - General Chief Complaint: Alcohol intoxication Stated Complaint: BACK PAIN Time Seen by Provider: 10/04/18 14:13 History Source: Patient Exam Limitations: No Limitations Past History - Travel Traveled outside of the country in the last 30 days: No Close contact w/someone who was outside of country & ill: No - Past Medical History Allergies/Adverse Reactions: Allergies Allergy/AdvReac Type Severity Reaction Status Date / Time Fish Containing Products Allergy Mild Swelling Verified 09/28/18 06:49 No Known Drug Allergies Allergy Verified 09/28/18 06:49 Home Medications: Ambulatory Orders NK [No Known Home Medication] 08/14/18 Anemia: No Asthma: No Cancer: Yes (mesothelioma lung cancer) Cardiac Disorders: No CVA: No COPD: No CHF: No DVT: No Dementia: No Diabetes: No GI Disorders: No Disorders: No HTN: Yes (non compliance) Hypercholesterolemia: No Kidney Stones: No Liver Disease: No Psychiatric Problems: Yes (etoh) Seizures: No Thyroid Disease: No - Surgical History Abdominal Surgery: No Appendectomy: No Cardiac Surgery: No Cholecystectomy: No Lung Surgery: No Neurologic Surgery: No Orthopedic Surgery: No - Family Disease History Family Disease History: CA: Mother - Reproductive History Testicular Surgery: No - Immunization History TDAP Vaccination: Yes Immunization Up to Date: Yes - Suicide/Smoking/Psychosocial Hx Smoking Status: No Smoking History: Unknown if ever smoked Have you smoked in the past 12 months: No Number of Cigarettes Smoked Daily: 0 If you are a former smoker, when did you quit?: 0 Cigars Per Day: 0 Information on smoking cessation initiated: No 'Breaking Loose' booklet given: 09/22/17 Hx Alcohol Use: No Drug/Substance Use Hx: No Substance Use Type: Alcohol Hx Substance Use Treatment: Yes ([facility] 04/05/18 to 04/08/18) Review of Systems - Review of Systems Able to Perform ROS?: Yes Comments:: 10/04/18 18:37 CONSTITUTIONAL: Present: intoxication Absent: fever, chills, diaphoresis, generalized weakness, malaise, loss of appetite HEENT: Absent: rhinorrhea, nasal congestion, throat pain, throat swelling, difficulty swallowing, mouth swelling, ear pain, eye pain, visual Changes CARDIOVASCULAR: Absent: chest pain, loss of consciousness, palpitations, irregular heart rate, peripheral edema RESPIRATORY: Absent: cough, shortness of breath, dyspnea with exertion, orthopnea, wheezing, stridor, hemoptysis GASTROINTESTINAL: Absent: abdominal pain, abdominal distension, nausea, vomiting, diarrhea, constipation, melena, hematochezia GENITOURINARY: Absent: dysuria, frequency, urgency, hesitancy, hematuria, flank pain, genital pain MUSCULOSKELETAL: Absent: myalgia, arthralgia, joint swelling SKIN: Absent: rash, itching, pallor HEMATOLOGIC/IMMUNOLOGIC: Absent: easy bleeding, easy bruising, lymphadenopathy, frequent infections ENDOCRINE: Absent: unexplained weight gain, unexplained weight loss, heat intolerance, cold intolerance NEUROLOGIC: Absent: headache, focal weakness or paresthesias, dizziness, unsteady gait, seizure, mental status changes, bladder or bowel incontinence PSYCHIATRIC: Absent: anxiety, depression, suicidal or homicidal ideation, hallucinations. Is the patient limited Portuguese proficient: No *Physical Exam - Vital Signs Last Vital Signs Temp Pulse Resp BP Pulse Ox 97.8 F 91 H 20 125/68 96 10/04/18 14:14 10/04/18 14:14 10/04/18 14:14 10/04/18 14:14 10/04/18 14:14 - Physical Exam Comments: 10/04/18 18:38 GENERAL: Well developed, well nourished. Disheveled. Alcohol on the breath. Awake and alert. No acute distress. HEENT: Normocephalic, atraumatic. PERRLA, EOMI. No conjunctival pallor. Sclera are non- icteric. Moist mucous membranes. Oropharynx is clear. NECK: Supple. Full ROM. No JVD. Carotid pulses 2+ and symmetric, without bruits. No thyromegaly. No lymphadenopathy. CARDIOVASCULAR: Regular rate and rhythm. No murmurs, rubs, or gallops. Distal pulses are 2+ and symmetric. PULMONARY: No evidence of respiratory distress. Lungs clear to auscultation bilaterally. No wheezing, rales or rhonchi. ABDOMINAL: Soft. Non-tender. Non-distended. No rebound or guarding. No organomegaly. Normoactive bowel sounds. MUSCULOSKELETAL Normal range of motion at all joints. No bony deformities or tenderness. No CVA tenderness. EXTREMITIES: No cyanosis. No clubbing. No edema. No calf tenderness. SKIN: Warm and dry. Normal capillary refill. No rashes. No jaundice. NEUROLOGICAL: Alert, awake, appropriate. Cranial nerves 2-12 intact. No deficits to light touch and temperature in face, upper extremities and lower extremities. No motor deficits in the in face, upper extremities and lower extremities. Normoreflexic in the upper and lower extremities. Normal speech. Toes are down- going bilaterally. Gait not observed PSYCHIATRIC: Cooperative. Good eye contact. Appropriate mood and affect. Medical Decision Making - Medical Decision Making 10/04/18 18:38 The patient is a 63-year-old male past medical history of mesothelioma, well- known to the emergency department today who presents to the emergency today for intoxication. Patient states that he drank a whole bottle of margaritas this morning at 11. Alcohol is present on the breath. Patient is sitting in wheelchair gait not observed . Patient has no complaints at this time, denies fevers, chills, chest pain, difficulty breathing, back pain, nausea, vomiting and diarrhea. A/P: Alcohol intoxication. Patient is no complaints at this time. Requesting a turkey sandwich. Will let metabolize to freedom Gait not observed, patiently currently sleeping in the emergency department Sign out given to MICHAEL Casanova patient relief when clinically sober. *DC/Admit/Observation/Transfer Diagnosis at time of Disposition: Alcohol dependence with intoxication Qualifiers: Complication of substance-induced condition: uncomplicated Qualified Code(s): F10.220 - Alcohol dependence with intoxication, uncomplicated - Referrals - Patient Instructions - Post Discharge Activity
--- NOTE | 2018-10-04 21:19 | PDOC ---
*Physical Exam - Vital Signs Last Vital Signs Temp Pulse Resp BP Pulse Ox 97.8 F 91 H 20 125/68 96 10/04/18 14:14 10/04/18 14:14 10/04/18 14:14 10/04/18 14:14 10/04/18 14:14 - Physical Exam General Appearance: Yes: Disheveled, Alcohol on Breath, Other (normocephalic) Respiratory/Chest: positive: Lungs Clear Gastrointestinal/Abdominal: positive: Normal Bowel Sounds Neurologic: positive: Alert Medical Decision Making - Medical Decision Making 10/04/18 22:19 peter sleeping arousable. drank 2 cups of water. slurred speech. 10/05/18 01:08 patient is asleep arousable. tolerating water. 10/05/18 05:15 patient asleep arousable. lengthy ED stay to metabolize. will give librium. *DC/Admit/Observation/Transfer Diagnosis at time of Disposition: Alcohol dependence with intoxication Qualifiers: Complication of substance-induced condition: uncomplicated Qualified Code(s): F10.220 - Alcohol dependence with intoxication, uncomplicated - Discharge Dispostion Disposition: HOME - Referrals - Patient Instructions Printed Discharge Instructions: DI for Alcohol Abuse Additional Instructions: refrain from drinking alcohol . - Post Discharge Activity
[2018-10-04 23:29] VITALS: BP 130/62; PULSE 85; TEMP 98.2
[2018-10-05] MEDS ORDERED: chlordiazePOXIDE HCL 25 MG CAPSULE PO ONE (05:15)
== END 2018-10-05 06:01 | disposition home or self-care (01) ==
LOC: JER 14:05
DX: F10.220 Alcohol dependence with intoxication, uncomplicated (principal); M54.9 Dorsalgia, unspecified; I10 Essential (primary) hypertension; C45.9 Mesothelioma, unspecified; Z59.0 Homelessness; Z91.013 Allergy to seafood; Z91.14 Patient's other noncompliance with medication regimen
CPT/HCPCS: 99282-25

== ENCOUNTER 2018-10-05 14:15 | Emergency (ER) | payer OTHER ==
--- NOTE | 2018-10-05 14:41 | PDOC ---
Rapid Medical Evaluation Chief Complaint: Alcohol intoxication Time Seen by Provider: 10/05/18 14:40 Medical Evaluation: Allergies Allergy/AdvReac Type Severity Reaction Status Date / Time Fish Containing Products Allergy Mild Swelling Verified 09/28/18 06:49 No Known Drug Allergies Allergy Verified 09/28/18 06:49 10/05/18 14:40 I did a brief in person evaluation on this patient. CC: ETOH HPI: Pt is here for ETOH PE: Skin: Clear Lungs: Clear Heart:RRR Abd: soft, non tender MS: Moves all extremities without difficulty Neuro: alert Psych: appropriate affect. Pt will proceed to main ED for further evaluation. Discharge Disposition - Diagnosis Intoxication - Referrals - Patient Instructions - Post Discharge Activity
[2018-10-05 14:45] VITALS: BP 92/53; PULSE 79; TEMP 98.4; BMI 40.3
--- NOTE | 2018-10-05 16:08 | PDOC ---
History of Present Illness - General Chief Complaint: Alcohol intoxication Stated Complaint: BACK PAIN Time Seen by Provider: 10/05/18 14:40 Past History - Travel Traveled outside of the country in the last 30 days: No Close contact w/someone who was outside of country & ill: No - Past Medical History Allergies/Adverse Reactions: Allergies Allergy/AdvReac Type Severity Reaction Status Date / Time Fish Containing Products Allergy Mild Swelling Verified 10/06/18 12:45 No Known Drug Allergies Allergy Verified 10/06/18 12:45 Home Medications: Ambulatory Orders NK [No Known Home Medication] 08/14/18 Anemia: No Asthma: No Cancer: Yes (mesothelioma lung cancer) Cardiac Disorders: No CVA: No COPD: No CHF: No DVT: No Dementia: No Diabetes: No GI Disorders: No Disorders: No HTN: Yes (non compliance) Hypercholesterolemia: No Kidney Stones: No Liver Disease: No Psychiatric Problems: Yes (etoh) Seizures: No Thyroid Disease: No - Surgical History Abdominal Surgery: No Appendectomy: No Cardiac Surgery: No Cholecystectomy: No Lung Surgery: No Neurologic Surgery: No Orthopedic Surgery: No - Family Disease History Family Disease History: CA: Mother - Reproductive History Testicular Surgery: No - Immunization History TDAP Vaccination: Yes Immunization Up to Date: Yes - Suicide/Smoking/Psychosocial Hx Smoking Status: No Smoking History: Unknown if ever smoked Have you smoked in the past 12 months: No Number of Cigarettes Smoked Daily: 0 If you are a former smoker, when did you quit?: 0 Cigars Per Day: 0 Information on smoking cessation initiated: No 'Breaking Loose' booklet given: 09/22/17 Hx Alcohol Use: No Drug/Substance Use Hx: No Substance Use Type: Alcohol Hx Substance Use Treatment: Yes ([facility] 04/05/18 to 04/08/18) Review of Systems - Review of Systems Able to Perform ROS?: Yes Comments:: 10/05/18 16:27 CONSTITUTIONAL: Absent: fever, chills, diaphoresis, generalized weakness, malaise, loss of appetite HEENT: Absent: rhinorrhea, nasal congestion, throat pain, throat swelling, difficulty swallowing, mouth swelling, ear pain, eye pain, visual Changes CARDIOVASCULAR: Absent: chest pain, loss of consciousness, palpitations, irregular heart rate, peripheral edema RESPIRATORY: Absent: cough, shortness of breath, dyspnea with exertion, orthopnea, wheezing, stridor, hemoptysis GASTROINTESTINAL: Absent: abdominal pain, abdominal distension, nausea, vomiting, diarrhea, constipation, melena, hematochezia GENITOURINARY: Absent: dysuria, frequency, urgency, hesitancy, hematuria, flank pain, genital pain MUSCULOSKELETAL: Absent: myalgia, arthralgia, joint swelling SKIN: Absent: rash, itching, pallor HEMATOLOGIC/IMMUNOLOGIC: Absent: easy bleeding, easy bruising, lymphadenopathy, frequent infections ENDOCRINE: Absent: unexplained weight gain, unexplained weight loss, heat intolerance, cold intolerance NEUROLOGIC: Absent: headache, focal weakness or paresthesias, dizziness, unsteady gait, seizure, mental status changes, bladder or bowel incontinence PSYCHIATRIC: Absent: anxiety, depression, suicidal or homicidal ideation, hallucinations. Is the patient limited Somali proficient: No *Physical Exam - Vital Signs Last Vital Signs Temp Pulse Resp BP Pulse Ox 98.4 F 79 16 92/53 L 97 10/05/18 14:41 10/05/18 14:41 10/05/18 14:41 10/05/18 14:41 10/05/18 14:41 - Physical Exam Comments: 10/05/18 16:27 GENERAL: Well developed, well nourished. Disheveled. Awake and alert. No acute distress. HEENT: Normocephalic, atraumatic. PERRLA, EOMI. No conjunctival pallor. Sclera are non- icteric. Moist mucous membranes. Oropharynx is clear. NECK: Supple. Full ROM. No JVD. Carotid pulses 2+ and symmetric, without bruits. No thyromegaly. No lymphadenopathy. CARDIOVASCULAR: Regular rate and rhythm. No murmurs, rubs, or gallops. Distal pulses are 2+ and symmetric. PULMONARY: No evidence of respiratory distress. Lungs clear to auscultation bilaterally. No wheezing, rales or rhonchi. ABDOMINAL: Soft. Non-tender. Non-distended. No rebound or guarding. No organomegaly. Normoactive bowel sounds. MUSCULOSKELETAL Normal range of motion at all joints. No bony deformities or tenderness. No CVA tenderness. EXTREMITIES: No cyanosis. No clubbing. No edema. No calf tenderness. SKIN: Warm and dry. Normal capillary refill. No rashes. No jaundice. NEUROLOGICAL: Alert, awake, appropriate. Cranial nerves 2-12 intact. No deficits to light touch and temperature in face, upper extremities and lower extremities. No motor deficits in the in face, upper extremities and lower extremities. Normoreflexic in the upper and lower extremities. Normal speech. Toes are down- going bilaterally. Gait is normal without ataxia. PSYCHIATRIC: Cooperative. Good eye contact. Appropriate mood and affect. Medical Decision Making - Medical Decision Making 10/05/18 16:28 HPI: The patient is a 63 y/o M PMH of mesotheliaoma, well known to the ED, who presents to the ED today after being brought by ambulance. He currently has no complaints and states he has not drank today. He left the ED this morning around 11:30am. A/P: Malingering Not clinically intoxicated on exam. Gait steady Pt asking for sandwich Will feed and observe, dc. 10/05/18 17:23 Pt eloped from ED. No longer in the verticle room or the ED floor *DC/Admit/Observation/Transfer Diagnosis at time of Disposition: Intoxication - Discharge Dispostion Disposition: ELP Condition at time of disposition: Stable - Referrals - Patient Instructions - Post Discharge Activity
== END 2018-10-05 18:40 | disposition left against medical advice (07) ==
LOC: JER 14:15
DX: F10.220 Alcohol dependence with intoxication, uncomplicated (principal); I10 Essential (primary) hypertension; C45.9 Mesothelioma, unspecified; M54.5 Low back pain; G89.29 Other chronic pain; Z59.0 Homelessness
CPT/HCPCS: 99281-25

== ENCOUNTER 2018-10-06 12:22 | Observation (INO) | payer OTHER ==
[2018-10-06 12:47] VITALS: BMI 33.0
[2018-10-06] MEDS ORDERED: SODIUM CHLORIDE 1,000 ML IV STA (13:24)
[2018-10-06 14:38] LABS: BASO % 1.2 % (0-2.0); EOS % 3.7 % (0-4.5); HEMATOCRIT 30.2 % (35.4-49); HEMOGLOBIN 9.6 GM/dL (11.7-16.9); LYMPH % 35.7 % (8-40); MCH 27.3 pg (25.7-33.7); MCHC 31.9 g/dl (32.0-35.9); MEAN CELL VOLUME 85.5 fl (80-96); MONO % 6.4 % (3.8-10.2); PLATELET COUNT 363 K/MM3 (134-434); RBC 3.54 M/mm3 (4.00-5.60); RDW 20.7 % (11.9-15.9); WHITE BLOOD COUNT 4.8 K/mm3 (4.0-10.0)
[2018-10-06 14:49] LABS: INR 1.05 (0.83-1.09); PROTHROMBIN TIME (PATIENT) 12.4 SEC (9.7-13.0)
[2018-10-06 14:51] LABS: ACTIVATED PTT 30.7 SECONDS (25.2-36.5)
[2018-10-06 14:56] LABS: VENOUS PC02 46.7 mmHg (41-51); VENOUS PH 7.4 (7.31-7.41); VENOUS PO2 41.9 mmHg (30-40)
--- NOTE | 2018-10-06 15:13 | EKG ---
Test Reason : Blood Pressure : / mmHG Vent. Rate : 098 BPM Atrial Rate : 098 BPM P-R Int : 188 ms QRS Dur : 104 ms QT Int : 386 ms P-R-T Axes : 013 -39 040 degrees QTc Int : 492 ms NORMAL SINUS RHYTHM POSSIBLE LEFT ATRIAL ENLARGEMENT LEFT AXIS DEVIATION PROLONGED QT ABNORMAL ECG WHEN COMPARED WITH ECG OF 28-SEP-2018 08:46, PREMATURE ATRIAL COMPLEXES ARE NO LONGER PRESENT Confirmed by PALMER RICHMOND, YONATAN ([id number]) on 10/06/2018 3:12:31 PM Referred By: Confirmed By:YONATAN CHAKRABORTY MD
[2018-10-06 15:17] LABS: ALBUMIN 3.2 g/dl (3.4-5.0); ALK PHOS 108 U/L (45-117); ANION GAP 9 MMOL/L (8-16); ANISOCYTOSIS 1+; BILIRUBIN,TOTAL 0.3 mg/dL (0.2-1); BLOOD UREA NITROGEN 8 mg/dL (7-18); CALCIUM 8.4 mg/dL (8.5-10.1); CHLORIDE 103 mmol/L (98-107); CO2 30 mmol/L (21-32); CREATININE 0.7 mg/dL (0.55-1.3); GLUCOSE,RANDOM 89 mg/dL (74-106); MACROCYTOSIS 0; PLATELET ESTIMATE NORMAL; SGOT/AST 33 U/L (15-37); SGPT/ALT 28 U/L (13-61); SODIUM 142 mmol/L (136-145); TOT PROT 6.6 g/dl (6.4-8.2)
[2018-10-06] MEDS ORDERED: AZITHROMYCIN IVPB 500 MG in DEXTROSE 5%-WATER - 250 ML IVPB ONE (16:51)
[2018-10-06] MEDS ORDERED: CEFTRIAXONE 1 GM in DEXTROSE 5%-WATER - 100 ML IVPB ONE (16:53)
--- NOTE | 2018-10-06 16:59 | PDOC ---
Documentation entered by Ernestine Snyder SCRIBE, acting as scribe for Sadia Cornell MD. Sadia Cornell MD: This documentation has been prepared by the Claudio pereira Amanda, SCRIBE, under my direction and personally reviewed by me in its entirety. I confirm that the documentation accurately reflects all work, treatment, procedures, and medical decision making performed by me. History of Present Illness - General Chief Complaint: Alcohol intoxication Stated Complaint: Alcohol intoxication History Source: Patient Exam Limitations: No Limitations, Intoxication - History of Present Illness Initial Comments: 10/06/18 13:23 The patient is a 63 year-old male with a significant past medical history of mesothelioma, well-known to the emergency department who presents to the emergency today via ems for intoxication. The patient was hypoxic in route and on reports was found to have pneumonia but left the hospital AMA. Past History - Past Medical History Allergies/Adverse Reactions: Allergies Allergy/AdvReac Type Severity Reaction Status Date / Time Fish Containing Products Allergy Mild Swelling Verified 10/07/18 19:24 No Known Drug Allergies Allergy Verified 10/07/18 19:24 Home Medications: Ambulatory Orders Levofloxacin [Levaquin] 500 mg PO DAILY #2 tablet 10/07/18 Anemia: No Asthma: No Cancer: Yes (mesothelioma lung cancer) Cardiac Disorders: No CVA: No COPD: No CHF: No DVT: No Dementia: No Diabetes: No GI Disorders: No Disorders: No HTN: Yes (non compliance) Hypercholesterolemia: No Kidney Stones: No Liver Disease: No Psychiatric Problems: Yes (etoh) Seizures: No Thyroid Disease: No - Surgical History Abdominal Surgery: No Appendectomy: No Cardiac Surgery: No Cholecystectomy: No Lung Surgery: No Neurologic Surgery: No Orthopedic Surgery: No - Family Disease History Family Disease History: CA: Mother - Reproductive History Testicular Surgery: No - Immunization History TDAP Vaccination: Yes Immunization Up to Date: Yes - Suicide/Smoking/Psychosocial Hx Smoking Status: No Smoking History: Never smoked Have you smoked in the past 12 months: No Number of Cigarettes Smoked Daily: 0 If you are a former smoker, when did you quit?: 0 Cigars Per Day: 0 'Breaking Loose' booklet given: 09/22/17 Hx Alcohol Use: Yes (DAILY) Drug/Substance Use Hx: No (DENIES) Substance Use Type: Alcohol Hx Substance Use Treatment: Yes ([facility] 04/05/18 to 04/08/18) *Physical Exam - Vital Signs Last Vital Signs Temp Pulse Resp BP Pulse Ox 98.4 F 97 H 18 93/55 L 90 L 10/06/18 12:40 10/06/18 12:40 10/06/18 12:40 10/06/18 12:40 10/06/18 12:40 - Physical Exam Comments: 10/06/18 16:02 GENERAL: The patient is in no acute distress. +Intoxicated, discheveled, malodorous. HEAD: Normal with no signs of trauma. EYES: PERRLA, EOMI, sclera anicteric, conjunctiva clear. ENT: Ears normal, nares patent, oropharynx clear without exudates. Dry mucous membranes. NECK: Normal range of motion, supple LUNGS: Breath sounds equal, rhoncherous breath sounds HEART:Regular rate and rhythm, normal S1 and S2 ABDOMEN: Soft, nontender EXTREMITIES: Normal range of motion, (+) peripheral edema legs and hand NEUROLOGICAL: Cranial nerves II through XII grossly intact. Normal speech. No focal neurological deficits. 10/06/18 16:54 ED Treatment Course - LABORATORY CBC & Chemistry Diagram: 10/07/18 06:35 10/07/18 06:35 - ADDITIONAL ORDERS Additional order review: Laboratory Results 10/06/18 10/06/18 10/06/18 14:22 14:22 14:22 RBC 3.54 L MCV 85.5 MCH 27.3 MCHC 31.9 L RDW 20.7 H MPV 7.0 L Absolute Neuts (auto) 2.5 Neutrophils % 53.0 D Lymphocytes % 35.7 D Monocytes % 6.4 Eosinophils % 3.7 D Basophils % 1.2 Nucleated RBC % 0 PT with INR 12.40 INR 1.05 PTT (Actin FS) 30.7 VBG pH 7.40 POC VBG pCO2 46.7 POC VBG pO2 41.9 H VBG HCO3 28.2 VBG O2 Sat (Renetta) 63.8 L VBG Base Excess 3.4 H 10/06/18 14:22 RBC 3.54 L MCV 85.5 MCHC 31.9 L RDW 20.7 H MPV 7.0 L Neutrophils % 53.0 D Lymphocytes % 35.7 D Monocytes % 6.4 Eosinophils % 3.7 D Basophils % 1.2 - RADIOLOGY Radiology Studies Ordered: Category Date Time Status CHEST PA & LAT [RAD] Stat Radiology 10/06/18 13:23 Ordered - Medications Given in the ED: ED Medications Discontinued Medications Generic Name Dose Route Start Last Admin Trade Name Freq PRN Reason Stop Dose Admin Sodium Chloride 1,000 mls @ 1,000 mls/hr 10/06/18 13:24 10/06/18 14:21 Normal Saline - IV 10/06/18 14:23 1,000 mls/hr ASDIR STA Administration Medical Decision Making - Medical Decision Making 10/06/18 15:01 Laboratory Tests 09/28/18 10/06/18 10/06/18 09:35 14:22 14:22 WBC 7.6 4.8 Hgb 10.8 L 9.6 L Hct 32.7 L 30.2 L Plt Count 163 D 363 D INR 1.05 VBG pH POC VBG pCO2 POC VBG pO2 10/06/18 14:22 WBC Hgb Hct Plt Count INR VBG pH 7.40 POC VBG pCO2 46.7 POC VBG pO2 41.9 H 10/06/18 16:24 Laboratory Tests 10/06/18 10/06/18 14:22 14:22 Sodium 142 Potassium 3.0 L Chloride 103 Carbon Dioxide 30 BUN 8 Creatinine 0.7 Random Glucose 89 Lactic Acid 3.1 H* Creatine Kinase 134 CK-MB (CK-2) 5.0 H Troponin I < 0.02 10/06/18 16:56 Pt CXR - no infiltrate seen, mediastinal widening Will do CT Will give Ceftriaxone and Azithromycin (xray from several days ago, LLL infiltrate, pt now relatively hypotensive and hypoxic) Signed out to Dr. Lugo 10/08/18 09:06 *DC/Admit/Observation/Transfer Diagnosis at time of Disposition: Pneumonia, Hypoxia - Discharge Dispostion Condition at time of disposition: Guarded - Referrals - Patient Instructions - Post Discharge Activity
[2018-10-06] MEDS ORDERED: CEFTRIAXONE 1 GM/50 ML BAG ONE (18:03)
[2018-10-06] MEDS ORDERED: AZITHROMYCIN IVPB 500 MG/250 ML BAG IVPB ONE (18:03)
--- NOTE | 2018-10-06 19:14 | PDOC ---
*Physical Exam - Vital Signs Last Vital Signs Temp Pulse Resp BP Pulse Ox 98.7 F 112 H 12 112/76 91 L 10/06/18 16:21 10/06/18 16:21 10/06/18 16:21 10/06/18 16:21 10/06/18 16:21 ED Treatment Course - LABORATORY CBC & Chemistry Diagram: 10/06/18 14:22 10/06/18 14:22 - ADDITIONAL ORDERS Additional order review: Laboratory Results 10/06/18 10/06/18 10/06/18 17:38 14:22 14:22 PT with INR INR PTT (Actin FS) VBG pH POC VBG pCO2 POC VBG pO2 VBG HCO3 VBG O2 Sat (Renetta) VBG Base Excess Sodium 142 Potassium 3.0 L Chloride 103 Carbon Dioxide 30 Anion Gap 9 BUN 8 Creatinine 0.7 Creat Clearance w eGFR 113.90 Random Glucose 89 Lactic Acid 2.8 H* 3.1 H* Calcium 8.4 L Total Bilirubin 0.3 AST 33 ALT 28 Alkaline Phosphatase 108 Creatine Kinase 134 CK-MB (CK-2) 5.0 H Troponin I < 0.02 Total Protein 6.6 Albumin 3.2 L 10/06/18 10/06/18 14:22 14:22 PT with INR 12.40 INR 1.05 PTT (Actin FS) 30.7 VBG pH 7.40 POC VBG pCO2 46.7 POC VBG pO2 41.9 H VBG HCO3 28.2 VBG O2 Sat (Renetta) 63.8 L VBG Base Excess 3.4 H Sodium Potassium Chloride Carbon Dioxide Anion Gap BUN Creatinine Creat Clearance w eGFR Random Glucose Lactic Acid Calcium Total Bilirubin AST ALT Alkaline Phosphatase Creatine Kinase CK-MB (CK-2) Troponin I Total Protein Albumin 10/06/18 14:22 RBC 3.54 L MCV 85.5 MCHC 31.9 L RDW 20.7 H MPV 7.0 L Neutrophils % 53.0 D Lymphocytes % 35.7 D Monocytes % 6.4 Eosinophils % 3.7 D Basophils % 1.2 - Medications Given in the ED: ED Medications Discontinued Medications Generic Name Dose Route Start Last Admin Trade Name Freq PRN Reason Stop Dose Admin Sodium Chloride 1,000 mls @ 1,000 mls/hr 10/06/18 13:24 10/06/18 14:21 Normal Saline - IV 10/06/18 14:23 1,000 mls/hr ASDIR STA Administration Azithromycin 500 mg/ Dextrose 250 mls @ 250 mls/hr 10/06/18 16:51 10/06/18 18 :55 IVPB 10/06/18 17:50 250 mls/hr ONCE ONE Administration Ceftriaxone Sodium 1 gm/ 100 mls @ 200 mls/hr 10/06/18 16:53 10/06/18 18:03 Dextrose IVPB 10/06/18 17:22 200 mls/hr ONCE ONE Administration Medical Decision Making - Medical Decision Making Pt w/ recent dx of PNA, admission and AMA Pt w/ CXR w/ evidence of infiltrate Will obtain CT, plan for admission for abx Lactate improving, will continue to resuscitate 10/06/18 19:12 CT w/ pulm a dilation, evidence of pHTN, stable aortic aneurysm, atelectasis, but no definite infiltrate Pt continues to feel short of breath, refuses O2, Saturating in low 90s on RA 10/06/18 21:14 *DC/Admit/Observation/Transfer Diagnosis at time of Disposition: Hypoxia Pneumonia Qualifiers: Pneumonia type: due to unspecified organism Laterality: unspecified laterality Lung location: unspecified part of lung Qualified Code(s): J18.9 - Pneumonia, unspecified organism - Discharge Dispostion Condition at time of disposition: Guarded Decision to Admit order: Yes - Referrals - Patient Instructions - Post Discharge Activity
[2018-10-06] MEDS ORDERED: SODIUM CHLORIDE 0.9% 500 ML INFUS.BAG IV ONE (20:10)
[2018-10-06] MEDS ORDERED: chlordiazePOXIDE HCL 25 MG CAPSULE PO ONE (21:16)
--- NOTE | 2018-10-06 22:28 | PN ---
Teaching Attending Note Name of Resident: Montserrat Downs ATTENDING PHYSICIAN STATEMENT I saw and evaluated the patient. I reviewed the resident's note and discussed the case with the resident. I agree with the resident's findings and plan as documented. SUBJECTIVE: Patient is a 63 year old man with PMH of alcohol abuse, HTN, chronic back pain, afib and mesothelioma, well-known to the ER who presents to the ER via EMS for alcohol intoxication. The patient was hypoxic in route and reportedly in the ER earlier and and was thought to have pneumonia with hypotension, but left the hospital AMA. 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 No AC was started. Denies fever, chills, photophobia, dysuria, diarrhea, frequency or urgency. OBJECTIVE: Alert Vital Signs Period Temp Pulse Resp BP Sys/Jang Pulse Ox Last 24 Hr 97.8 F-98.7 F 90-112 12-18 93-118/55-76 90-91 HEENT: No Jaundice, eye redness or discharge, PERRLA, EOMI. Poor dentition. Normocephalic, atraumatic. External ears are normal and hearing is grossly intact. No nasal discharge. Neck: Supple, nontender. No palpable adenopathy or thyromegaly. No JVD Chest: Good effort. Clear to auscultation and percussion. Heart: Regular. No S3, rub or murmur Abdomen: Not distended, soft, nontender and no HSM. No rebound or guarding. Normal bowel sounds. Ext: Peripheral pulses intact. No leg edema. Skin: Warm and dry. No petechiae, rash or ecchymosis. Neuro: Alert. Oriented x3. CN 2-12 grossly intact. Sensation grossly intact in all four extremities and DTR are symmetric. Psych: Appropriate mood and affect. Good insight. Home Medications Medication Instructions Recorded NK [No Known Home Medication] 08/14/18 Abnormal Lab Results 10/06/18 10/06/18 10/06/18 14:22 14:22 14:22 RBC 3.54 L Hgb 9.6 L Hct 30.2 L MCHC 31.9 L RDW 20.7 H MPV 7.0 L POC VBG pO2 41.9 H VBG O2 Sat (Renetta) 63.8 L VBG Base Excess 3.4 H Potassium 3.0 L Lactic Acid Calcium 8.4 L CK-MB (CK-2) 5.0 H Albumin 3.2 L 10/06/18 10/06/18 14:22 17:38 RBC Hgb Hct MCHC RDW MPV POC VBG pO2 VBG O2 Sat (Renetta) VBG Base Excess Potassium Lactic Acid 3.1 H* 2.8 H* Calcium CK-MB (CK-2) Albumin ASSESSMENT AND PLAN: 1. Acute hypoxic respiratory failure - Etiology unclear. No infiltrate on chest CT. May be due to aspiration "chemical pneumonitis" or a consequence of chronic lung disease due to mesothelioma. EKG is NSR with prolonged QTc. Will treat with IV Rocephin and Doxycycline; send urine for legionella antigen and get outpatient PFTs. Hypokalemia likely due to excess renal wasting seen in alcoholics, exacerbated by poor intake. Will check serum Mg+ and give PO KCL. Lactic acidosis more likely due to effects of alcohol. Got IV NS in the ER and repeat lactic acid is pending. 2. Obesity Counseled on the risks associated with obesity. Will provide patient all the necessary assistance, counseling and positive reinforcement to facilitate weight loss. Consult cad engineer. 3. Alcohol intoxication/abuse - Implement [facility] alcohol withdrawal protocol and do neurochecks. Implement seizure, fall and aspiration precautions. Treat with thiamine and folic acid and monitor electrolytes (Ca,Mg, K,P). Counseled patient about abstaining from alcohol. Will consult dairy specialist and refer to alcohol detox upon discharge. 4. Anemia - Likely multifactorial; nutritional, bone marrow suppression, etc. Will do basic anemia work up including serial stool guaiacs, reticulocyte count and iron studies. 5. Hypoalbuminemia - Possibly due to combined effects of malnutrition and inflammation associated with comorbid chronic conditions. Will ensure adequate dietary protein intake and also consult cad engineer. 6. DVT prophylaxis - Lovenox 40 mg SQ q 24 hours. 7. Advance directives - Full code
--- NOTE | 2018-10-06 22:52 | HP ---
CHIEF COMPLAINT: "Drank too much" PCP: None HISTORY OF PRESENT ILLNESS: Patient is a 63 year old male with a PMHx of Mesothelioma, HTN, Alcohol abuse with multiple ED visits for EtOH intoxication who presented to the ED once again for EtOH intoxication. Patient states he "Drank too much today" and does not feel well. Upon further questioning patient reports feeling slightly short of breath is still able to walk to the bathroom without worsening shortness of breath. Patient is uncooperative and refusing oxygen at the time. Otherwise, patient is poor historian. According to the ED staff, patient initially presented for intoxication in the afternoon and was found to have 02 sat in the low 90's with an isolated low BP reading. He was given fluids with BP improvement. However, his 02 saturation was between 88%-90% and is usually high 90's%. Otherwise, patient denies any fever, chills, nausea, vomiting, abdominal pain, chest pain, palpitations, dizziness, acute vision changes. ER course was notable for: (1) Hypoxia at 88% on RA (2) 2L of fluids given for low BP (3) IV antibiotics given Recent Travel: Denies PAST MEDICAL HISTORY: Alcohol Abuse Mesothelioma (Diagnosed 4 years ago) HTN Chronic back pain PAST SURGICAL HISTORY: None Social History: Smoking: Denies Alcohol:1 pint of alcohol daily, since age 16. 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) Family History: Denies Allergies: Fish Containing Products Allergy (Mild, Verified 10/06/18 12:45) Swelling No Known Drug Allergies Allergy (Verified 10/06/18 12:45) HOME MEDICATIONS: Home Medications Medication Instructions Recorded NK [No Known Home Medication] 08/14/18 REVIEW OF SYSTEMS CONSTITUTIONAL: Absent: fever, chills, diaphoresis, generalized weakness, malaise, loss of appetite, weight change HEENT: Absent: rhinorrhea, nasal congestion, throat pain, throat swelling, difficulty swallowing, mouth swelling, ear pain, eye pain, visual changes CARDIOVASCULAR: Absent: chest pain, syncope, palpitations, irregular heart rate, lightheadedness , peripheral edema RESPIRATORY: shortness of breath Absent: cough, dyspnea with exertion, orthopnea, wheezing, stridor, hemoptysis GASTROINTESTINAL: Absent: abdominal pain, abdominal distension, nausea, vomiting, diarrhea, constipation, melena, hematochezia GENITOURINARY: Absent: dysuria, frequency, urgency, hesitancy, hematuria, flank pain, genital pain MUSCULOSKELETAL: Absent: myalgia, arthralgia, joint swelling, back pain, neck pain SKIN: Absent: rash, itching, pallor HEMATOLOGIC/IMMUNOLOGIC: Absent: easy bleeding, easy bruising, lymphadenopathy, frequent infections ENDOCRINE: Absent: unexplained weight gain, unexplained weight loss, heat intolerance, cold intolerance NEUROLOGIC: Absent: headache, focal weakness or paresthesias, dizziness, unsteady gait, seizure, mental status changes, bladder or bowel incontinence PSYCHIATRIC: Absent: anxiety, depression, suicidal or homicidal ideation, hallucinations. PHYSICAL EXAMINATION Vital Signs - 24 hr 10/06/18 10/06/18 10/06/18 12:40 16:21 21:12 Temperature 98.4 F 98.7 F 97.8 F Pulse Rate 97 H Pulse Rate [ 112 H 90 Left Radial] Respiratory 18 12 12 Rate Blood Pressure 93/55 L Blood Pressure 112/76 118/57 L [Right] O2 Sat by Pulse 90 L 91 L 91 L Oximetry (%) GENERAL: Awake, alert, in no acute distress. HEAD: Normal with no signs of trauma. EYES: Pupils equal, round and reactive to light, extraocular movements intact, sclera anicteric, conjunctiva clear. ENT: Oropharynx clear without exudates. Dry mucous membranes. Poor dentition NECK: (-) lymphadenopathy, JVD, or masses. LUNGS: Mild rhonchi in right upper base. No accessory muscle use. HEART: Regular rate and rhythm, normal S1 and S2 without murmur, rub or gallop. ABDOMEN: Soft, nontender, not distended, normoactive bowel sounds, no guarding, no rebound, no masses. MUSCULOSKELETAL: No CVA tenderness. EXTREMITIES: No calf tenderness. Trace edema in B/L LE extremities. NEUROLOGICAL: Cranial nerves II-XII intact. Normal speech. Motor strength 5/5 bilaterally with sensory intact PSYCHIATRIC: Cooperative. Good eye contact. Appropriate mood and affect. SKIN: Warm, dry, normal turgor, no rashes or lesions noted, normal capillary refill. Laboratory Results 10/06/18 14:22 10/06/18 14:22 10/06/18 10/06/18 10/06/18 14:22 14: 17:38 Lactic Acid 3.1 H* 2.8 H* AST 33 ALT 28 Alkaline Phosphatase 108 Troponin I < 0.02 IMAGES: CHEST CT (10/06/18): No infiltrate or pleural effusion is noted. Mild left lower lobe discoid atelectasis is seen which appears mildly increased in comparison to a abdomen CT study of 08/14/2018. As on a [address] exam there is stable fusiform aneurysmal dilatation of the ascending aorta with a 4.5 cm diameter. Note is also made of unchanged dilatation of the main pulmonary artery strongly suggestive of increased pulmonary arterial pressure. A chronic/ late subacute T12 vertebral body fracture is visualized without obvious interval change in comparison to the 08/14/[address] exam. Chronic bilateral rib fractures. There is partial imaging of a chronic proximal right humeral fracture (which was acute at the time of conventional radiography performed 06/21/2018). CHEST X-RAY (10/06/18): A single AP view of the chest is been submitted. Since there is a more prominent mediastinum with large heart, fullness in the paratracheal areas and unfolded aorta. There is slight increase in lung markings on the left. For more complete evaluation, further imaging with CT may be of help. Incidental note is made of old trauma involving the left AC joint and possibly right shoulder. EKG (10/06/18): NSR @98bpm with prolonged QTc of 492. No st-t changes ASSESSMENT/PLAN: Patient is a 63 year old male who presented for alcohol intoxication and was found to have hypoxia. Patient admitted for further monitoring and management. Acute Hypoxic Respiratory Failure -Possibly secondary to Pneumonia vs. Worsening Mesothelioma vs aspiration from intoxication -CT revealed no infiltrate or effusions but did reveal atelectasis of left lower lobe -Denies any cough or fevers. However, patient has hypoxia with possible CAP or Atypical PNA and will continue to cover with antibiotics. Will give Ceftriaxone 1gm daily and Doxycycline 100mg IVPB daily (Prolonged QTc of 492, will avoid Levo and Azithro or any agents that cause prolong QTc). -Urine antigens ordered -oxygen supplementation with 2L NC but Refusing oxygen -Incentive Spirometer -Telemetry monitoring Alcohol Dependence -Patient has history of alcohol abuse and withdrawals -Librium protocol started -CIWA score 3 -Banana Bag ordered -Daily Thiamine and folic acid -Neuro checks for DT's/Seizures -Will need detox consult -Fall risk precaution HTN -Currently controlled -Was borderline hypotension -Monitor off meds -Continue to monitor BP History of Mesothelioma -Diagnosed 4 years ago and may have acute hypoxic resp failure from worsening mesothelioma -CT revealed increasing pulmonary arterial pressure -Will need follow up with Pulmonology as outpatient and outpatient PFT's Hypokalemia -Likely from alcoholism and urinary wasting with low po intake -Will check magnesium level and replete potassium -Potassium chloride 40 meq daily -Continue daily BMP's and electrolytes Lactic Acidosis -Likely due to alcohol use -Trend lactic acidosis and continue to keep hydrated Hypoalbuminemia -Likely secondary to malnutrition and chronic inflammation -Continue to monitor -Will need to provide adequate dietary intake Anemia of Chronic Disease -Likely secondary to alcoholism and malnutrition -Continue to monitor daily F/E/N -On no fluids -Hypokalemia -Sodium controlled diet Prophylaxis -Moderate risk. Lovenox 40mg SQ daily for DVT -No GI required Disposition -Full code -Monitor in tele overnight for 02 monitoring as well. Will need to be on Librium protocol Montserrat Downs [id number] Visit type - Emergency Visit Emergency Visit: Yes ED Registration Date: 10/06/18 Care time: The patient presented to the Emergency Department on the above date and was hospitalized for further evaluation of their emergent condition. - New Patient This patient is new to me today: Yes Date on this admission: 10/06/18 - Critical Care Critical Care patient: No
[2018-10-06] MEDS ORDERED: chlordiazePOXIDE HCL 25 MG CAPSULE PO PRN (23:12)
[2018-10-06] MEDS ORDERED: FOLIC ACID INJECTION - 1 MG, THIAMINE HCL 100 MG, MULTIVIT INJECTION ADULT 10 ML in SOD... IVPB ONE (23:15)
[2018-10-06 23:20] LABS: EPI CELLS 2.2 /HPF (0-5/HPF); URINE APPEARANCE CLEAR; URINE BACTERIA 15.6 /hpf (NEGATIVE); URINE BILIRUBIN NEGATIVE (NEGATIVE); URINE CASTS 8 /lpf (0-8); URINE COLOR YELLOW; URINE GLUCOSE (UA) NEGATIVE (NEGATIVE); URINE KETONE NEGATIVE (NEGATIVE); URINE LEUK ESTERASE 1+ (NEGATIVE); URINE NITRITE NEGATIVE (NEGATIVE); URINE PROTEIN NEGATIVE (NEGATIVE); URINE RBC 1 /hpf (0-4); URINE UROBILINOGEN 0.2 mg/dL (0.2-1.0); URINE WBC 4 /hpf (0-5)
[2018-10-06] MEDS: chlordiazePOXIDE HCL 25 MG CAPSULE PO SCH (23:42)
[2018-10-07] MEDS ORDERED: POTASSIUM CHLORIDE TABS 20 MEQ TABLET.ER (FP) PO ONE ×2 (00:18→09:06)
[2018-10-07] MEDS: DOXYCYCLINE INJECTION 100 MG in DEXTROSE 5%-WATER - 100 ML IVPB SCH ×2 (01:37→09:25)
[2018-10-07 01:57] LABS: MAGNESIUM 1.2 mg/dL (1.8-2.4); PHOSPHOROUS 3.2 mg/dL (2.5-4.9)
[2018-10-07] MEDS ORDERED: MAGNESIUM SULF 50% (8.12 MEQ/2 ML-1 GM VIAL) IVPB ONE ×2 (02:00→12:01)
[2018-10-07] MEDS: KCL 10 MEQ IVPB 10 MEQ/100 ML INFUS.BAG IVPB SCH ×2 (03:06→04:08)
[2018-10-07] MEDS ORDERED: ACETAMINOPHEN 325 MG TABLET (FP) PO ONE (03:42)
[2018-10-07] MEDS: chlordiazePOXIDE HCL 25 MG CAPSULE PO SCH ×2 (04:56→10:01)
[2018-10-07 07:55] LABS: BASO % 0.7 % (0-2.0); EOS % 2.1 % (0-4.5); HEMATOCRIT 31.1 % (35.4-49); HEMOGLOBIN 10.2 GM/dL (11.7-16.9); LYMPH % 20.9 % (8-40); MCH 27.4 pg (25.7-33.7); MCHC 32.9 g/dl (32.0-35.9); MEAN CELL VOLUME 83.2 fl (80-96); MEAN PLT VOLUME 7.3 fl (7.5-11.1); MONO % 7.1 % (3.8-10.2); NEUT % 69.2 % (42.8-82.8); PLATELET COUNT 300 K/MM3 (134-434); RBC 3.73 M/mm3 (4.00-5.60)
[2018-10-07 08:13] LABS: MAGNESIUM 1.4 mg/dL (1.8-2.4)
[2018-10-07 08:13] LABS: ALBUMIN 3.1 g/dl (3.4-5.0); ALK PHOS 110 U/L (45-117); ANION GAP 9 MMOL/L (8-16); BILIRUBIN,TOTAL 0.6 mg/dL (0.2-1); BLOOD UREA NITROGEN 8 mg/dL (7-18); CALCIUM 8.4 mg/dL (8.5-10.1); CHLORIDE 105 mmol/L (98-107); CO2 28 mmol/L (21-32); CREATININE 0.5 mg/dL (0.55-1.3); GLUCOSE,RANDOM 79 mg/dL (74-106); MAGNESIUM 1.2 mg/dL (1.8-2.4); PHOSPHOROUS 3.4 mg/dL (2.5-4.9); POTASSIUM 3.1 mmol/L (3.5-5.1); SGOT/AST 27 U/L (15-37); SGPT/ALT 24 U/L (13-61); SODIUM 142 mmol/L (136-145); TOT PROT 6.4 g/dl (6.4-8.2)
[2018-10-07] MEDS ORDERED: DOXYCYCLINE HYCLATE 100 MG VIAL ONE (09:07)
[2018-10-07] MEDS ORDERED: FOLIC ACID 1 MG TABLET (FP) ONE (09:07)
[2018-10-07] MEDS ORDERED: CEFTRIAXONE 1 GM/50 ML BAG ONE (09:36)
[2018-10-07] MEDS ORDERED: cefTRIAXone SODIUM 1 GM VIAL ONE (09:36)
[2018-10-07] MEDS ORDERED: THIAMINE HCL 200 MG/2 ML VIAL ONE (09:37)
[2018-10-07] MEDS ORDERED: chlordiazePOXIDE HCL 25 MG CAPSULE ONE (09:53)
[2018-10-07] MEDS ORDERED: CEFTRIAXONE 1 GM in DEXTROSE 5%-WATER - 50 ML IVPB SCH (10:00)
[2018-10-07] MEDS ORDERED: FOLIC ACID 1 MG TABLET (FP) PO SCH (10:00)
[2018-10-07] MEDS ORDERED: ENOXAPARIN NA (PORCINE) 40 MG/0.4 ML DISP.SYRIN SQ SCH (10:00)
[2018-10-07] MEDS ORDERED: POTASSIUM CHLORIDE TABS 20 MEQ TABLET.ER (FP) PO SCH (10:00)
[2018-10-07] MEDS ORDERED: THIAMINE HCL 200 MG/2 ML VIAL IVPB SCH (10:00)
[2018-10-07] MEDS ORDERED: MAGNESIUM OXIDE 400 MG TABLET (FP) PO ONE (12:01)
--- NOTE | 2018-10-07 13:24 | DS ---
Physical Exam: SUBJECTIVE: Patient seen and examined. asymptomatic. denies CP, SOB, fever, chills, N/V/C/D, difficulty breathing OBJECTIVE: Vital Signs Period Temp Pulse Resp BP Sys/Jang Pulse Ox Last 24 Hr 97.8 F-98.7 F 81-112 12-15 112-174/57-97 91-94 PHYSICAL EXAM GENERAL: The patient is awake, alert, and fully oriented, in no acute distress. dishelved HEAD: Normal with no signs of trauma. EYES: PERRL, extraocular movements intact, sclera anicteric, conjunctiva clear. ENT: Ears normal, nares patent, oropharynx clear without exudates, moist mucous membranes. NECK: Trachea midline, full range of motion, supple. LUNGS: Breath sounds equal, clear to auscultation bilaterally, no wheezes, no crackles, no accessory muscle use. HEART: Regular rate and rhythm, S1, S2 without murmur, rub or gallop. ABDOMEN: Soft, nontender, nondistended, normoactive bowel sounds, no guarding, no rebound, no hepatosplenomegaly, no masses. EXTREMITIES: 2+ pulses, warm, well-perfused, no edema. NEUROLOGICAL: Cranial nerves II through XII grossly intact. Normal speech, gait not observed. PSYCH: Normal mood, normal affect. SKIN: Warm, dry, normal turgor, no rashes or lesions noted. LABS Laboratory Results - last 24 hr 10/06/18 10/06/18 10/06/18 14:22 14:22 14:22 WBC 4.8 RBC 3.54 L Hgb 9.6 L Hct 30.2 L MCV 85.5 MCH 27.3 MCHC 31.9 L RDW 20.7 H Plt Count 363 D MPV 7.0 L Absolute Neuts (auto) 2.5 Neutrophils % 53.0 D Lymphocytes % 35.7 D Monocytes % 6.4 Eosinophils % 3.7 D Basophils % 1.2 Nucleated RBC % 0 Hypochromia 0 Platelet Estimate Normal Polychromasia 1+ Poikilocytosis 1+ Anisocytosis 1+ Microcytosis 1+ Macrocytosis 0 Stomatocytes 1+ PT with INR 12.40 INR 1.05 PTT (Actin FS) 30.7 VBG pH 7.40 POC VBG pCO2 46.7 POC VBG pO2 41.9 H VBG HCO3 28.2 VBG O2 Sat (Renetta) 63.8 L VBG Base Excess 3.4 H Sodium Potassium Chloride Carbon Dioxide Anion Gap BUN Creatinine Creat Clearance w eGFR Random Glucose Lactic Acid Calcium Phosphorus Magnesium Total Bilirubin AST ALT Alkaline Phosphatase Creatine Kinase CK-MB (CK-2) Troponin I Total Protein Albumin Urine Color Urine Appearance Urine pH Ur Specific Monroe Urine Protein Urine Glucose (UA) Urine Ketones Urine Blood Urine Nitrite Urine Bilirubin Urine Urobilinogen Ur Leukocyte Esterase Urine WBC (Auto) Urine RBC (Auto) Urine Casts (Auto) U Epithel Cells (Auto) Urine Bacteria (Auto) 10/06/18 10/06/18 10/06/18 14:22 14:22 17:38 WBC RBC Hgb Hct MCV MCH MCHC RDW Plt Count MPV Absolute Neuts (auto) Neutrophils % Lymphocytes % Monocytes % Eosinophils % Basophils % Nucleated RBC % Hypochromia Platelet Estimate Polychromasia Poikilocytosis Anisocytosis Microcytosis Macrocytosis Stomatocytes PT with INR INR PTT (Actin FS) VBG pH POC VBG pCO2 POC VBG pO2 VBG HCO3 VBG O2 Sat (Renetta) VBG Base Excess Sodium 142 Potassium 3.0 L Chloride 103 Carbon Dioxide 30 Anion Gap 9 BUN 8 Creatinine 0.7 Creat Clearance w eGFR 113.90 Random Glucose 89 Lactic Acid 3.1 H* 2.8 H* Calcium 8.4 L Phosphorus 4.0 Magnesium 1.4 L Total Bilirubin 0.3 AST 33 ALT 28 Alkaline Phosphatase 108 Creatine Kinase 134 CK-MB (CK-2) 5.0 H Troponin I < 0.02 Total Protein 6.6 Albumin 3.2 L Urine Color Urine Appearance Urine pH Ur Specific Monroe Urine Protein Urine Glucose (UA) Urine Ketones Urine Blood Urine Nitrite Urine Bilirubin Urine Urobilinogen Ur Leukocyte Esterase Urine WBC (Auto) Urine RBC (Auto) Urine Casts (Auto) U Epithel Cells (Auto) Urine Bacteria (Auto) 10/06/18 10/07/18 10/07/18 23:11 01:31 01:40 WBC RBC Hgb Hct MCV MCH MCHC RDW Plt Count MPV Absolute Neuts (auto) Neutrophils % Lymphocytes % Monocytes % Eosinophils % Basophils % Nucleated RBC % Hypochromia Platelet Estimate Polychromasia Poikilocytosis Anisocytosis Microcytosis Macrocytosis Stomatocytes PT with INR INR PTT (Actin FS) VBG pH POC VBG pCO2 POC VBG pO2 VBG HCO3 VBG O2 Sat (Renetta) VBG Base Excess Sodium Potassium Chloride Carbon Dioxide Anion Gap BUN Creatinine Creat Clearance w eGFR Random Glucose Lactic Acid 1.2 Calcium Phosphorus 3.2 Magnesium 1.2 L Total Bilirubin AST ALT Alkaline Phosphatase Creatine Kinase CK-MB (CK-2) Troponin I Total Protein Albumin Urine Color Yellow Urine Appearance Clear Urine pH 6.0 Ur Specific Monroe 1.014 Urine Protein Negative Urine Glucose (UA) Negative Urine Ketones Negative Urine Blood Negative Urine Nitrite Negative Urine Bilirubin Negative Urine Urobilinogen 0.2 Ur Leukocyte Esterase 1+ H Urine WBC (Auto) 4 Urine RBC (Auto) 1 Urine Casts (Auto) 8 U Epithel Cells (Auto) 2.2 Urine Bacteria (Auto) 15.6 10/07/18 10/07/18 06:35 06:35 WBC 6.0 RBC 3.73 L Hgb 10.2 L Hct 31.1 L MCV 83.2 MCH 27.4 MCHC 32.9 RDW 21.0 H Plt Count 300 MPV 7.3 L Absolute Neuts (auto) 4.1 Neutrophils % 69.2 D Lymphocytes % 20.9 D Monocytes % 7.1 Eosinophils % 2.1 Basophils % 0.7 Nucleated RBC % 0 Hypochromia Platelet Estimate Polychromasia Poikilocytosis Anisocytosis Microcytosis Macrocytosis Stomatocytes PT with INR INR PTT (Actin FS) VBG pH POC VBG pCO2 POC VBG pO2 VBG HCO3 VBG O2 Sat (Renetta) VBG Base Excess Sodium 142 Potassium 3.1 L Chloride 105 Carbon Dioxide 28 Anion Gap 9 BUN 8 Creatinine 0.5 L Creat Clearance w eGFR 167.94 Random Glucose 79 Lactic Acid Calcium 8.4 L Phosphorus 3.4 Magnesium 1.2 L Total Bilirubin 0.6 AST 27 ALT 24 Alkaline Phosphatase 110 Creatine Kinase CK-MB (CK-2) Troponin I < 0.02 Total Protein 6.4 Albumin 3.1 L Urine Color Urine Appearance Urine pH Ur Specific Monroe Urine Protein Urine Glucose (UA) Urine Ketones Urine Blood Urine Nitrite Urine Bilirubin Urine Urobilinogen Ur Leukocyte Esterase Urine WBC (Auto) Urine RBC (Auto) Urine Casts (Auto) U Epithel Cells (Auto) Urine Bacteria (Auto) HOSPITAL COURSE: Date of Admission:10/06/18 Date of Discharge: 10/07/18 Admitting Diagnosis: Acute hypoxic respiratory failure, UTI Pre hospital course 63 year old man with PMH of alcohol abuse, HTN, chronic back pain, afib and mesothelioma, well-known to the ER who presents to the ER via EMS for alcohol intoxication. The patient was hypoxic in route and reportedly in the ER earlier and and was thought to have pneumonia with hypotension, but left the hospital AMA. 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 No AC was started. Denies fever, chills, photophobia , dysuria, diarrhea, frequency or urgency. Subsequent hospital course Medicine observation. pt was saturating 95% on RA and was talking in complete sentences without difficulty. no reports of difficult breathing. likely has LARISA and should have polysomgraphy however is homeless and no insurance. pt current CIWA score is 0 and not interested in detox here or at [facility]. refused electrolyte replenishment. UA + and will treat with abx that pt can comply with 1x/day and will d/c on levaquin. Minutes to complete discharge: 40 Discharge Summary Reason For Visit: ALCOHOL ABUSE,INCREASED LACTIC ACID LEVEL,PNEUMONI Current Active Problems Hypoxia (Acute) Pneumonia (Acute) Condition: Guarded - Instructions Diet, Activity, Other Instructions: You were observed in the hospital because your lung saturations were low, here they are normal and all testing. You likely have sleep apnea and should have a sleep study to confirm this. You were also found to have a UTI. You will be started on antibiotics. take until completed. Start this tomorrow as you received your dose today It was recommended you go to [facility] for detox which you refused. It is STRONGLY recommended you abstain from drinking. As this is detrimental to your health Please see a primary care doctor. Information for the clinic has been provided. Referrals: Toni Iyer MD [Staff Physician] - Disposition: HOME - Home Medications Comprehensive Discharge Medication List: Ambulatory Orders Levofloxacin [Levaquin] 500 mg PO DAILY #2 tablet 10/07/18 This patient is new to me today: Yes Date on this admission: 10/07/18 Emergency Visit: Yes ED Registration Date: 10/06/18 Care time: The patient presented to the Emergency Department on the above date and was hospitalized for further evaluation of their emergent condition. Critical Care patient: No - Discharge Referral Referred to [facility] Med P.C.: No
[2018-10-07] MEDS ORDERED: MAGNESIUM OXIDE 400 MG TABLET (FP) ONE (14:06)
[2018-10-07] MEDS ORDERED: MAGNESIUM 1GM/D5W - 2 GM/200 ML IVPB IVPB ONE (14:07)
[2018-10-07 14:13] VITALS: BP 162/89; PULSE 75; TEMP 98.4
[2018-10-07] MEDS ORDERED: chlordiazePOXIDE HCL 25 MG CAPSULE PO SCH (23:00)
[2018-10-08] MEDS ORDERED: chlordiazePOXIDE HCL 10 MG CAPSULE PO SCH (23:00)
[2018-10-08] MEDS ORDERED: chlordiazePOXIDE HCL 10 MG CAPSULE PO PRN (23:00)
[2018-10-09] MEDS ORDERED: chlordiazePOXIDE HCL 10 MG CAPSULE PO SCH (23:00)
== END 2018-10-07 14:18 | disposition home or self-care (01) ==
LOC: JER 12:22 → JERBED 20:07 → UNDOADMOB 20:07 → INTOOBSV 20:07 → JERBED 23:08
PROVIDERS: ADMIT Internal Medicine; ATTEND Internal Medicine
PROC: 3E03329 Introduction of Other Anti-infective into Peripheral Vein, Percutaneous Approach (ICD-10-PCS; principal; 2018-10-06)
PROC: 3E033GC Introduction of Other Therapeutic Substance into Peripheral Vein, Percutaneous Approach (ICD-10-PCS; 2018-10-06)
PROC: 3E0337Z Introduction of Electrolytic and Water Balance Substance into Peripheral Vein, Percutaneous Approach (ICD-10-PCS; 2018-10-06)
PROC: 3E013GC Introduction of Other Therapeutic Substance into Subcutaneous Tissue, Percutaneous Approach (ICD-10-PCS; 2018-10-06)
DX: J96.01 Acute respiratory failure with hypoxia (principal); F10.220 Alcohol dependence with intoxication, uncomplicated; I10 Essential (primary) hypertension; I48.91 Unspecified atrial fibrillation; M54.5 Low back pain; G89.29 Other chronic pain; E88.09 Other disorders of plasma-protein metabolism, not elsewhere classified; D64.9 Anemia, unspecified; C45.9 Mesothelioma, unspecified; E66.9 Obesity, unspecified; Z68.33 Body mass index [BMI] 33.0-33.9, adult; Z91.14 Patient's other noncompliance with medication regimen; Z91.013 Allergy to seafood; Z59.0 Homelessness
CPT/HCPCS: 36415; 71045-TC-FY; 71250-TC; 80053; 81003; 82550; 82553; 82803; 83605; 83735; 84100; 84484; 85025; 85610; 85730; 87040; 87086; 87186; 93005; 93010; 96361; 96365; 96368; 96372; 96375; 99285-25; G0378; J7030

== ENCOUNTER 2018-10-07 19:04 | Emergency (ER) | payer OTHER ==
--- NOTE | 2018-10-07 19:22 | PDOC ---
Rapid Medical Evaluation Chief Complaint: Alcohol intoxication Time Seen by Provider: 10/07/18 19:17 Medical Evaluation: Allergies Allergy/AdvReac Type Severity Reaction Status Date / Time Fish Containing Products Allergy Mild Swelling Verified 10/06/18 12:45 No Known Drug Allergies Allergy Verified 10/06/18 12:45 10/07/18 19:18 63 year old male biba requesting detox. breath smelling of alcohol. seen in ED earlier today for similar complaint. Pe: patient alert A: alcohol abuse P; patient to the ER for further management of care. Discharge Disposition - Diagnosis Homelessness, Alcohol abuse Back pain Qualifiers: Back pain location: low back pain Chronicity: unspecified Back pain laterality : unspecified Sciatica presence: unspecified whether sciatica present Qualified Code(s): M54.5 - Low back pain - Referrals - Patient Instructions - Post Discharge Activity
[2018-10-07 19:24] VITALS: BP 98/61; PULSE 77; TEMP 97.7; BMI 33.1
== END 2018-10-07 21:45 | disposition left against medical advice (07) ==
LOC: JER 19:04
DX: F10.220 Alcohol dependence with intoxication, uncomplicated (principal); M54.5 Low back pain; I10 Essential (primary) hypertension; C45.9 Mesothelioma, unspecified; Z59.0 Homelessness; Z91.013 Allergy to seafood
CPT/HCPCS: 99281-25

== ENCOUNTER 2018-10-08 19:36 | Emergency (ER) | payer OTHER ==
[2018-10-08 19:50] VITALS: TEMP 98.5; BMI 32.8
--- NOTE | 2018-10-08 20:57 | PDOC ---
History of Present Illness - General Chief Complaint: Alcohol intoxication Stated Complaint: INTOX/BACK PAIN Time Seen by Provider: 10/08/18 20:46 History Source: Patient Exam Limitations: No Limitations - History of Present Illness Initial Comments: 10/08/18 21:52 63 year old man with PMH of alcohol abuse, HTN, chronic back pain, afib and mesothelioma, well-known to the ER who presents to the ER with lower back pain. Pt states it is of the same quality, intensity and location as his chronic low back pain without radiation into the legs, new weakness, incontinence/retention of stool or urine, changes in sensation in between his legs, abdominal pain or fevers. Denies all other ROS Past History - Past Medical History Allergies/Adverse Reactions: Allergies Allergy/AdvReac Type Severity Reaction Status Date / Time Fish Containing Products Allergy Mild Swelling Verified 10/07/18 19:24 No Known Drug Allergies Allergy Verified 10/07/18 19:24 Home Medications: Ambulatory Orders Levofloxacin [Levaquin] 500 mg PO DAILY #2 tablet 10/07/18 Anemia: No Asthma: No Cancer: Yes (mesothelioma lung cancer) Cardiac Disorders: No CVA: No COPD: No CHF: No DVT: No Dementia: No Diabetes: No GI Disorders: No Disorders: No HTN: Yes (non compliance) Hypercholesterolemia: No Kidney Stones: No Liver Disease: No Psychiatric Problems: Yes (etoh) Seizures: No Thyroid Disease: No - Surgical History Abdominal Surgery: No Appendectomy: No Cardiac Surgery: No Cholecystectomy: No Lung Surgery: No Neurologic Surgery: No Orthopedic Surgery: No - Family Disease History Family Disease History: CA: Mother - Reproductive History Testicular Surgery: No - Immunization History TDAP Vaccination: Yes Immunization Up to Date: Yes - Suicide/Smoking/Psychosocial Hx Smoking Status: No Smoking History: Unknown if ever smoked Have you smoked in the past 12 months: No Number of Cigarettes Smoked Daily: 0 If you are a former smoker, when did you quit?: 0 Cigars Per Day: 0 'Breaking Loose' booklet given: 09/22/17 Hx Alcohol Use: No Drug/Substance Use Hx: No Substance Use Type: Alcohol Hx Substance Use Treatment: Yes ([facility] 04/05/18 to 04/08/18) *Physical Exam - Vital Signs Last Vital Signs Temp Pulse Resp BP Pulse Ox 98.5 F 84 19 132/78 100 10/08/18 19:48 10/08/18 19:48 10/08/18 19:48 10/08/18 19:48 10/08/18 19:48 Medical Decision Making - Medical Decision Making 10/09/18 00:41 63 year old man with PMH of alcohol abuse, HTN, chronic back pain, afib and mesothelioma, well-known to the ER who presents to the ER with lower back pain. Pt states it is of the same quality, intensity and location as his chronic low back pain without radiation into the legs, new weakness, incontinence/retention of stool or urine, changes in sensation in between his legs, abdominal pain or fevers. Denies all other ROS S/O to Dr. West for further care
--- NOTE | 2018-10-09 00:11 | PDOC ---
Documentation entered by Tyshawn Bailey SCRIBE, acting as scribe for Lorri Kumar MD. Lorri Kumar MD: This documentation has been prepared by the georgie, Tyshawn Bailey SCRIBE, under my direction and personally reviewed by me in its entirety. I confirm that the documentation accurately reflects all work, treatment, procedures, and medical decision making performed by me. Attending Attestation - Resident Resident Name: Rusty Montgomery - ED Attending Attestation I have performed the following: I have examined & evaluated the patient, The case was reviewed & discussed with the resident, I agree w/resident's findings & plan - HPI HPI: 10/08/18 23:29 The patient is a 63 year old male, well known to the ED, who present vi EMS with alcohol intoxication and back pain since earlier today. He denies any other symptoms or complaints. He denies any fever chill nausea vomiting diarrhea constipation or urinary symptoms. - Physicial Exam PE: 10/09/18 03:01 Agree with resident exam. - Medical Decision Making 10/09/18 03:02 Pt is intox and sleeping. When he wakes up we will treat him with percocet and muscle relaxant for the pain.
--- NOTE | 2018-10-09 05:54 | PDOC ---
*Physical Exam - Vital Signs Last Vital Signs Temp Pulse Resp BP Pulse Ox 98.5 F 84 19 132/78 100 10/08/18 19:48 10/08/18 19:48 10/08/18 19:48 10/08/18 19:48 10/08/18 19:48 Medical Decision Making - Medical Decision Making 10/09/18 05:51 pt signed out to me by Dr. Montgomery Pt is a 63yo M well known to department with PMH of alcohol abuse, HTN, chronic back pain, afib and mesothelioma BIBA with lower back pain and intoxication. Pt states it is of the same quality, intensity and location as his chronic low back pain without radiation into the legs, new weakness, incontinence/retention of stool or urine, changes in sensation in between his legs, abdominal pain or fevers. Denies all other ROS. -no labs -MTF. -will give pain meds/muscle relaxer upon waking. pt sleeping comfortably, no acute distress. meds given. will dc *DC/Admit/Observation/Transfer Diagnosis at time of Disposition: Back pain Qualifiers: Back pain location: low back pain Chronicity: chronic Back pain laterality: unspecified Sciatica presence: without sciatica Qualified Code(s): M54.5 - Low back pain; G89.29 - Other chronic pain - Discharge Dispostion Disposition: HOME Condition at time of disposition: Good Decision to Admit order: No - Referrals - Patient Instructions Printed Discharge Instructions: DI for Alcohol Abuse, DI for Low Back Pain Additional Instructions: You were seen in the emergency room for intoxication and back pain. Please stay safe. You can go to detox at [address] [place] [address] when you are ready. Come back to the emergency room if you are intoxicated, have pain, have difficulty breathing, have chest pain or if any new concerning symptom develops. Thank you - Post Discharge Activity
[2018-10-09] MEDS ORDERED: METHOCARBAMOL 500 MG TABLET PO ONE (06:21)
[2018-10-09] MEDS ORDERED: METHOCARBAMOL 500 MG TABLET ONE (06:34)
[2018-10-09 07:06] VITALS: BP 136/78; PULSE 88
== END 2018-10-09 07:06 | disposition home or self-care (01) ==
LOC: JER 19:36
DX: M54.5 Low back pain (principal); G89.29 Other chronic pain; F10.10 Alcohol abuse, uncomplicated; I10 Essential (primary) hypertension; I48.91 Unspecified atrial fibrillation; C45.9 Mesothelioma, unspecified
CPT/HCPCS: 99281-25

== ENCOUNTER 2018-10-12 14:34 | Emergency (ER) | payer OTHER ==
[2018-10-12 14:50] VITALS: BP 117/72; PULSE 66; TEMP 98.2; BMI 33.0
--- NOTE | 2018-10-12 15:14 | PDOC ---
History of Present Illness - General Chief Complaint: Alcohol intoxication Stated Complaint: Alcohol intoxication Time Seen by Provider: 10/12/18 15:14 - History of Present Illness Initial Comments: 63 year old male with PMH of mesothelioma and recent diagnosis of PNA presenting intoxicated after drinking 1 L of vodka a few hours ago (self reported). States that nothing is acutely bothering him and he is doing well. He continuously asks for a sandwich and to rest. Denies fevers, chills, nausea, vomiting, diarrhea, or other symptoms. 10/12/18 17:14 Past History - Past Medical History Allergies/Adverse Reactions: Allergies Allergy/AdvReac Type Severity Reaction Status Date / Time Fish Containing Products Allergy Mild Swelling Verified 10/07/18 19:24 No Known Drug Allergies Allergy Verified 10/07/18 19:24 Home Medications: Ambulatory Orders Levofloxacin [Levaquin] 500 mg PO DAILY #2 tablet 10/07/18 Anemia: No Asthma: No Cancer: Yes (mesothelioma lung cancer) Cardiac Disorders: No CVA: No COPD: No CHF: No DVT: No Dementia: No Diabetes: No GI Disorders: No Disorders: No HTN: Yes (non compliance) Hypercholesterolemia: No Kidney Stones: No Liver Disease: No Psychiatric Problems: Yes (etoh) Seizures: No Thyroid Disease: No - Surgical History Abdominal Surgery: No Appendectomy: No Cardiac Surgery: No Cholecystectomy: No Lung Surgery: No Neurologic Surgery: No Orthopedic Surgery: No - Family Disease History Family Disease History: CA: Mother - Reproductive History Testicular Surgery: No - Immunization History TDAP Vaccination: Yes Immunization Up to Date: Yes - Suicide/Smoking/Psychosocial Hx Smoking Status: No Smoking History: Unknown if ever smoked Have you smoked in the past 12 months: No Number of Cigarettes Smoked Daily: 0 If you are a former smoker, when did you quit?: 0 Cigars Per Day: 0 'Breaking Loose' booklet given: 09/22/17 Hx Alcohol Use: No Drug/Substance Use Hx: No Substance Use Type: Alcohol Hx Substance Use Treatment: Yes ([facility] 04/05/18 to 04/08/18) Review of Systems - Review of Systems Constitutional: No: Chills, Diaphoresis, Fever HEENTM: No: Blurred Vision, Tearing Respiratory: No: Cough, Orthopnea, Shortness of Breath Cardiac (ROS): No: Chest Pain, Irregular Heart Rate ABD/GI: No: Diarrhea, Nausea, Vomiting : No: Burning, Dysuria Musculoskeletal: Yes: Back Pain, Joint Pain Integumentary: Yes: Bruising, Erythema Neurological: No: Headache, Numbness, Paresthesia *Physical Exam - Vital Signs Last Vital Signs Temp Pulse Resp BP Pulse Ox 98.2 F 66 18 117/72 98 10/12/18 14:44 10/12/18 14:44 10/12/18 14:44 10/12/18 14:44 10/12/18 14:44 - Physical Exam General Appearance: Yes: Nourished, Appropriately Dressed, Intoxicated. No: Apparent Distress HEENT: positive: EOMI, DOUGLAS, Normal ENT Inspection, Normal Voice Neck: positive: Trachea midline, Normal Thyroid, Supple. negative: Tender, Rigid Respiratory/Chest: negative: Chest Tender, Lungs Clear, Normal Breath Sounds ( bilateal fine basilar crackles), Respiratory Distress, Accessory Muscle Use Cardiovascular: positive: Regular Rhythm, Regular Rate Gastrointestinal/Abdominal: positive: Normal Bowel Sounds, Flat, Soft. negative : Tender Musculoskeletal: positive: Normal Inspection. negative: Decreased Range of Motion Extremity: positive: Normal Capillary Refill, Normal Inspection, Normal Range of Motion. negative: Tender Integumentary: positive: Normal Color, Dry, Warm Neurologic: positive: Fully Oriented, Alert, Motor Strength 5/5. negative: Normal Response (intoxicated) Medical Decision Making - Medical Decision Making 63 year old male with PMH of multiple acute intoxication presentations presenting acutely intoxicated and asking for a sandwich and to rest. Patient was sober on my last exam and eating food. When I went to discharge him, I received verbal report from nursing staff that they saw him on the highway attempting to hitchhike. We will document this as a elopement. 10/12/18 20:27 *DC/Admit/Observation/Transfer Diagnosis at time of Disposition: Intoxication - Discharge Dispostion Disposition: ELOPED Condition at time of disposition: Stable Decision to Admit order: No - Referrals - Patient Instructions Printed Discharge Instructions: DI for Alcohol Abuse - Post Discharge Activity
--- NOTE | 2018-10-12 16:44 | PDOC ---
Documentation entered by Ernestine Snyder SCRIBE, acting as scribe for Palmer Stone MD. Palmer Stone MD: This documentation has been prepared by the Claudio pereira Amanda, SCRIBE, under my direction and personally reviewed by me in its entirety. I confirm that the documentation accurately reflects all work, treatment, procedures, and medical decision making performed by me. Attending Attestation - Resident Resident Name: Sidney Rizzodarline - [facility] HPI: 10/12/18 16:57 The patient is a 63 year old male, well known to [facility], with a PMHx of mesothelioma and ETOH abuse who presents to the ED via ems for ETOH intoxication. The patient denies any complaints at this time. - Physicial Exam PE: 10/12/18 17:39 Vitals: Triage vital signs reviewed General Appearance: (+) sleeping but arousable. No acute distress, well developed Head: Atraumatic Eyes: Pupils equal reactive round, extraocular movement intact Neck: Supple; No nuchal rigidity Chest Wall: Nontender Cardiac: Regular rate and rhythm, no murmurs, no rubs, no gallops Lungs: Clear to auscultation bilateral, good air movement bilaterally Abdomen: Soft, nondistended, normal bowel sounds, nontender to palpation Extremities: Full range of motion to all extremities, no cyanosis, clubbing, or edema Skin: Warm and dry, no rashes or lesions, no rash, no petechiae Neuro: AOX3; Cranial Nerves 2-12 grossly intact, Strength intact to all extremities, Sensation intact to all extremities, Psych: Normal mood, normal affect - Medical Decision Making 10/12/18 18:58 Patient well-known to ED staff presents with alcohol intoxication normal neurologic examination We'll allow patient to metabolize. Dr. Lugo to reevaluate and dispo
== END 2018-10-12 20:48 | disposition left against medical advice (07) ==
LOC: JER 14:34
DX: F10.220 Alcohol dependence with intoxication, uncomplicated (principal); I10 Essential (primary) hypertension; C45.9 Mesothelioma, unspecified; Z87.01 Personal history of pneumonia (recurrent); Z59.0 Homelessness
CPT/HCPCS: 99281-25

== ENCOUNTER 2018-10-13 13:26 | Emergency (ER) | payer OTHER ==
[2018-10-13 14:03] VITALS: BP 152/94; PULSE 96; TEMP 98.4; BMI 34.5
--- NOTE | 2018-10-13 14:04 | PDOC ---
History of Present Illness - General Chief Complaint: Alcohol intoxication Stated Complaint: INTOX Time Seen by Provider: 10/13/18 13:57 History Source: Patient Exam Limitations: Intoxication - History of Present Illness Initial Comments: 63M w/ a history of EtOH abuse, chronic back pain, HTN, mesothelioma presents to the ED intoxicated. He states he drank Margaritas this morning that were around 12% alcohol. 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 He would like to be updated regarding all [place] actions. He states he came in to get a hot meal and does not want a sandwich. PCP: Dr. Garima Bridges PSH: None reported Allergies: Fish products Social Hx: 1 pint of alcohol daily, since age 16 Past History - Past Medical History Allergies/Adverse Reactions: Allergies Allergy/AdvReac Type Severity Reaction Status Date / Time Fish Containing Products Allergy Mild Swelling Verified 10/13/18 14:03 No Known Drug Allergies Allergy Verified 10/13/18 14:03 Anemia: No Asthma: No Cancer: Yes (mesothelioma lung cancer) Cardiac Disorders: No CVA: No COPD: No CHF: No DVT: No Dementia: No Diabetes: No GI Disorders: No Disorders: No HTN: Yes (non compliance) Hypercholesterolemia: No Kidney Stones: No Liver Disease: No Psychiatric Problems: Yes (etoh) Seizures: No Thyroid Disease: No - Surgical History Abdominal Surgery: No Appendectomy: No Cardiac Surgery: No Cholecystectomy: No Lung Surgery: No Neurologic Surgery: No Orthopedic Surgery: No - Family Disease History Family Disease History: CA: Mother - Reproductive History Testicular Surgery: No - Immunization History TDAP Vaccination: Yes Immunization Up to Date: Yes - Suicide/Smoking/Psychosocial Hx Smoking Status: No Smoking History: Never smoked Have you smoked in the past 12 months: No Number of Cigarettes Smoked Daily: 0 If you are a former smoker, when did you quit?: 0 Cigars Per Day: 0 Information on smoking cessation initiated: No 'Breaking Loose' booklet given: 09/22/17 Hx Alcohol Use: No Drug/Substance Use Hx: No Substance Use Type: Alcohol Hx Substance Use Treatment: Yes ([facility] 04/05/18 to 04/08/18) Review of Systems - Review of Systems Able to Perform ROS?: No (Intoxicated) *Physical Exam - Vital Signs Last Vital Signs Temp Pulse Resp BP Pulse Ox 98.4 F 96 H 18 152/94 94 L 10/13/18 13:55 10/13/18 13:55 10/13/18 13:55 10/13/18 13:55 10/13/18 13:55 - Physical Exam Comments: GENERAL: Intoxicated, lethargic. No apparent distress. Smells of urine. HEENT: Normocephalic, atraumatic. CARDIOVASCULAR: Normal S1, S2. Regular rate and rhythm. PULMONARY: No evidence of respiratory distress. Lungs clear to auscultation bilaterally. No wheezing, rales or rhonchi. ABDOMEN: Obese. Soft, non-distended, non-tender. EXTREMITIES: Limited ROM in lower extremities. No gross deformities. SKIN: Appears Jaundiced. Warm, dry. No rash NEUROLOGICAL: No focal neurological deficits. Medical Decision Making - Medical Decision Making 63M w/ a history of EtOH abuse, chronic back pain, HTN, mesothelioma presents to the ED intoxicated. The patient is very well known to our ED and presents multiple times a week intoxicated. He states he drank Margaritas this morning that were around 12% alcohol. 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 He would like to be updated regarding all [place] actions. He states he came in to get a hot meal and does not want a sandwich. VS: Mildly hypoxic to 94, otherwise WNL. DDx IBNLT: Intoxication Plan: TLC, wait for clinical sobriety, DC when he is ready to leave the ED. *DC/Admit/Observation/Transfer Diagnosis at time of Disposition: Alcohol intoxication - Discharge Dispostion Disposition: HOME Condition at time of disposition: Stable Decision to Admit order: No - Referrals - Patient Instructions Printed Discharge Instructions: DI for Alcohol Abuse - Post Discharge Activity
--- NOTE | 2018-10-13 16:02 | PDOC ---
Documentation entered by Beata Keen SCRIBE, acting as scribe for Sadia Cornell MD. Sdaia Cornell MD: This documentation has been prepared by the Osmani pereira Sammi, SCRIBE, under my direction and personally reviewed by me in its entirety. I confirm that the documentation accurately reflects all work, treatment, procedures, and medical decision making performed by me. Attending Attestation - Resident Resident Name: Stevenson Jiang - ED Attending Attestation I have performed the following: I have examined & evaluated the patient, The case was reviewed & discussed with the resident, I agree w/resident's findings & plan, Exceptions are as noted - HPI HPI: 10/13/18 14:47 The patient is a 63 year old male, with a significant PMH of alcohol abuse, chronic back pain, HTN, mesothelioma, who presents to the emergency department intoxicated. The initially denied alcohol use but then states that he had margaritas earlier today. Patient presents today requesting a hot meal. Pt denies trauma He has no complaints at this time Social history: alcohol abuse PCP: Dr. Garima Bridges 10/14/18 07:54 - Physicial Exam PE: 10/13/18 15:22 GENERAL: (+)intoxicated, slurred speech, mal odorous, disheveled. The patient is in no acute distress. ENT: Ears normal, nares patent, oropharynx clear without exudates. Dry mucous membranes. NECK: Normal range of motion, supple, no nuchal rigidity LUNGS: Breath sounds equal, clear to auscultation bilaterally. No wheezes, and no crackles. HEART: Regular rate and rhythm, normal S1 and S2 without murmur, rub or gallop. ABDOMEN: Soft, nontender, normoactive bowel sounds. No guarding, no rebound. No masses palpable. EXTREMITIES: Normal range of motion, no edema. NEUROLOGICAL: Cranial nerves II through XII grossly intact. No focal neurological deficits. SKIN: Warm, Dry, normal turgor, no rashes or lesions noted. 10/13/18 16:01 - Medical Decision Making 10/13/18 16:02 63 yo M well known to the ER Presenting with public intoxication Pt has no complaints at this time Will plan to observe until sober
== END 2018-10-13 19:33 | disposition home or self-care (01) ==
LOC: JER 13:26
DX: F10.120 Alcohol abuse with intoxication, uncomplicated (principal); C45.9 Mesothelioma, unspecified; I10 Essential (primary) hypertension; G89.29 Other chronic pain; M54.9 Dorsalgia, unspecified
CPT/HCPCS: 99282-25

== ENCOUNTER 2018-10-15 11:48 | Emergency (ER) | payer OTHER ==
[2018-10-15 12:05] VITALS: BP 150/95; PULSE 85; TEMP 98; BMI 29.0
--- NOTE | 2018-10-15 13:26 | PDOC ---
History of Present Illness - General Chief Complaint: Alcohol intoxication Stated Complaint: INTOX Time Seen by Provider: 10/15/18 12:39 History Source: Patient Exam Limitations: Intoxication - History of Present Illness Initial Comments: 63M w/ a history of EtOH abuse, chronic back pain, HTN, mesothelioma presents to the ED intoxicated. He states he drank Vodka this morning and then fell forward and faceplanted. He thinks he smashed his nose. 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 He would like to be updated regarding all [place] actions. He states he came in to get a hot meal and does not want a sandwich. PCP: Dr. Garima Bridges PSH: None reported Allergies: Fish products Social Hx: 1 pint of alcohol daily, since age 16 Past History - Past Medical History Allergies/Adverse Reactions: Allergies Allergy/AdvReac Type Severity Reaction Status Date / Time Fish Containing Products Allergy Mild Swelling Verified 10/15/18 12:05 No Known Drug Allergies Allergy Verified 10/15/18 12:05 Anemia: No Asthma: No Cancer: Yes (mesothelioma lung cancer) Cardiac Disorders: No CVA: No COPD: No CHF: No DVT: No Dementia: No Diabetes: No GI Disorders: No Disorders: No HTN: Yes (non compliance) Hypercholesterolemia: No Kidney Stones: No Liver Disease: No Psychiatric Problems: Yes (etoh) Seizures: No Thyroid Disease: No - Surgical History Abdominal Surgery: No Appendectomy: No Cardiac Surgery: No Cholecystectomy: No Lung Surgery: No Neurologic Surgery: No Orthopedic Surgery: No - Family Disease History Family Disease History: CA: Mother - Reproductive History Testicular Surgery: No - Immunization History TDAP Vaccination: Yes Immunization Up to Date: Yes - Suicide/Smoking/Psychosocial Hx Smoking Status: No Smoking History: Never smoked Have you smoked in the past 12 months: No Number of Cigarettes Smoked Daily: 0 If you are a former smoker, when did you quit?: 0 Cigars Per Day: 0 Information on smoking cessation initiated: No 'Breaking Loose' booklet given: 09/22/17 Hx Alcohol Use: No Drug/Substance Use Hx: No Substance Use Type: Alcohol Hx Substance Use Treatment: Yes ([facility] 04/05/18 to 04/08/18) Review of Systems - Review of Systems Able to Perform ROS?: No (intoxicated) *Physical Exam - Vital Signs Last Vital Signs Temp Pulse Resp BP Pulse Ox 98.0 F 85 16 150/95 100 10/15/18 12:03 10/15/18 12:03 10/15/18 12:03 10/15/18 12:10/15/18 12:03 - Physical Exam Comments: GENERAL: Intoxicated, lethargic. No apparent distress. Smells of urine. HEENT: Normocephalic, atraumatic. CARDIOVASCULAR: Normal S1, S2. Regular rate and rhythm. PULMONARY: No evidence of respiratory distress. Lungs clear to auscultation bilaterally. No wheezing, rales or rhonchi. ABDOMEN: Obese. Soft, non-distended, non-tender. EXTREMITIES: Limited ROM in lower extremities. No gross deformities. SKIN: Appears Jaundiced. Warm, dry. No rash NEUROLOGICAL: No focal neurological deficits. ED Treatment Course - RADIOLOGY Radiology Studies Ordered: Category Date Time Status FACIAL BONES CT W/O CONTRAST [CT] Stat CT Scan 10/15/18 12:[address] WITHOUT CONTRAST [CT] Stat CT Scan 10/15/18 12:39 Ordered Medical Decision Making - Medical Decision Making 63M w/ a history of EtOH abuse, chronic back pain, HTN, mesothelioma presents to the ED intoxicated. He states he drank Vodka this morning and then fell forward and face planted. He thinks he smashed his nose. 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 He would like to be updated regarding all [place] actions. He states he came in to get a hot meal and does not want a sandwich. He states he will only get a cat scan of his head if he is served a hot meal first. He is unhappy that there is chicken today. VS: WNL DDx IBNLT: Intoxication Plan: Head/face CT, TLC, wait for clinical sobriety, DC when he is ready to leave the ED. *DC/Admit/Observation/Transfer Diagnosis at time of Disposition: Alcohol intoxication, Face pain - Discharge Dispostion Disposition: ELOPED Condition at time of disposition: Stable Decision to Admit order: No - Referrals - Patient Instructions Printed Discharge Instructions: DI for Alcohol Abuse - Post Discharge Activity
--- NOTE | 2018-10-15 14:42 | PDOC ---
Documentation entered by Susu Gonzales SCRIBE, acting as scribe for Sadia Cornell MD. Sadia Cornell MD: This documentation has been prepared by the Janet pereira Nirvannie, SCRIBE, under my direction and personally reviewed by me in its entirety. I confirm that the documentation accurately reflects all work, treatment, procedures, and medical decision making performed by me. Attending Attestation - Resident Resident Name: Stevenson Jiang - ED Attending Attestation I have performed the following: I have examined & evaluated the patient, The case was reviewed & discussed with the resident, I agree w/resident's findings & plan - HPI HPI: 10/15/18 14:31 The patient is a 63 year old male, with a significant PMH of alcohol abuse, chronic back pain, HTN, mesothelioma, who presents to the emergency department s /p fall onto the face. While in the ED, pt is intoxicated and requests a hot meal. Patient denies any LOC or changes in strength or sensation. Social history: alcohol abuse Primary Care Physician: Dr. Garima Bridges - Physicial Exam PE: 10/15/18 14:31 GENERAL: The patient is in no acute distress. +Intoxicated, disheveled, malodorous. HEAD: + Abrasion to the chin. EYES: PERRLA, EOMI, sclera anicteric, conjunctiva clear. ENT: Ears normal, nares patent, oropharynx clear without exudates. Dry mucous membranes. NECK: Normal range of motion, supple LUNGS: Breath sounds equal, clear to auscultation bilaterally. HEART:Regular rate and rhythm, normal S1 and S2 ABDOMEN: Soft, nontender EXTREMITIES: Normal range of motion, (+) peripheral edema legs and hand NEUROLOGICAL: Cranial nerves II through XII grossly intact. Normal speech. No focal neurological deficits. - Medical Decision Making 10/15/18 14:32 63 yo M well known to the ER Presenting with public intoxication and fall Pt has no complaints at this time Plan to head CT and observe until sober Pt initially agreed to have CT Then refused to go to CT
== END 2018-10-15 15:00 | disposition left against medical advice (07) ==
LOC: JER 11:48
DX: F10.120 Alcohol abuse with intoxication, uncomplicated (principal); G50.1 Atypical facial pain; I10 Essential (primary) hypertension; G89.29 Other chronic pain; C45.9 Mesothelioma, unspecified
CPT/HCPCS: 99281-25

== ENCOUNTER 2018-10-15 18:53 | Emergency (ER) | payer OTHER ==
[2018-10-15 19:12] VITALS: BMI 33.0
--- NOTE | 2018-10-15 20:11 | PDOC ---
History of Present Illness - General Chief Complaint: Alcohol intoxication Stated Complaint: INTOX Time Seen by Provider: 10/15/18 19:34 History Source: Patient Exam Limitations: Intoxication Past History - Past Medical History Allergies/Adverse Reactions: Allergies Allergy/AdvReac Type Severity Reaction Status Date / Time Fish Containing Products Allergy Mild Swelling Verified 10/15/18 12:05 No Known Drug Allergies Allergy Verified 10/15/18 12:05 Anemia: No Asthma: No Cancer: Yes (mesothelioma lung cancer) Cardiac Disorders: No CVA: No COPD: No CHF: No DVT: No Dementia: No Diabetes: No GI Disorders: No Disorders: No HTN: Yes (non compliance) Hypercholesterolemia: No Kidney Stones: No Liver Disease: No Psychiatric Problems: Yes (etoh) Seizures: No Thyroid Disease: No - Surgical History Abdominal Surgery: No Appendectomy: No Cardiac Surgery: No Cholecystectomy: No Lung Surgery: No Neurologic Surgery: No Orthopedic Surgery: No - Family Disease History Family Disease History: CA: Mother - Reproductive History Testicular Surgery: No - Immunization History TDAP Vaccination: Yes Immunization Up to Date: Yes - Suicide/Smoking/Psychosocial Hx Smoking Status: No Smoking History: Never smoked Have you smoked in the past 12 months: No Number of Cigarettes Smoked Daily: 0 If you are a former smoker, when did you quit?: 0 Cigars Per Day: 0 Information on smoking cessation initiated: No 'Breaking Loose' booklet given: 09/22/17 Hx Alcohol Use: No Drug/Substance Use Hx: No Substance Use Type: Alcohol Hx Substance Use Treatment: Yes ([facility] 04/05/18 to 04/08/18) *Physical Exam - Vital Signs Last Vital Signs Temp Pulse Resp BP Pulse Ox 97.2 F L 81 18 112/54 L 99 10/15/18 19:10 10/15/18 19:10 10/15/18 19:10 10/15/18 19:10 10/15/18 19:10 - Physical Exam General Appearance: Yes: Disheveled, Alcohol on Breath, Intoxicated HEENT: positive: Other (no head/facial trauma noted) Respiratory/Chest: positive: Lungs Clear, Normal Breath Sounds. negative: Respiratory Distress Cardiovascular: positive: Regular Rhythm, Regular Rate, S1, S2. negative: Murmur Gastrointestinal/Abdominal: positive: Soft. negative: Tender Medical Decision Making - Medical Decision Making 63 y/o M hx EtOH abuse, chronic back pain, HTN, mesothelioma was BIBEMS for alcohol intoxication. Patient denies any complaints currently and requesting to get some food, otherwise he will "punch the wall." Alcohol intoxication No evidence of trauma Will allow patient to clinically sober up 10/15/18 20:10 Patient seen walking around ED with steady gait Stable for dc 10/16/18 05:30 *DC/Admit/Observation/Transfer Diagnosis at time of Disposition: Alcohol intoxication Qualifiers: Complication of substance-induced condition: uncomplicated Qualified Code(s): F10.920 - Alcohol use, unspecified with intoxication, uncomplicated - Discharge Dispostion Disposition: HOME Condition at time of disposition: Stable Decision to Admit order: No - Referrals - Patient Instructions Printed Discharge Instructions: DI for Alcohol Abuse - Post Discharge Activity
[2018-10-16 06:28] VITALS: BP 120/60; PULSE 80; TEMP 98.1
== END 2018-10-16 06:40 | disposition home or self-care (01) ==
LOC: JER 18:53
DX: F10.920 Alcohol use, unspecified with intoxication, uncomplicated (principal); I10 Essential (primary) hypertension; C45.9 Mesothelioma, unspecified; G89.29 Other chronic pain
CPT/HCPCS: 99282-25

== ENCOUNTER 2018-10-16 11:06 | Emergency (ER) | payer OTHER ==
--- NOTE | 2018-10-16 11:46 | PDOC ---
Documentation entered by Beata Keen SCRIBE, acting as scribe for Vignesh Guillen MD. Vignesh Guillen MD: This documentation has been prepared by the Osmani pereira Sammi, SCRIBE, under my direction and personally reviewed by me in its entirety. I confirm that the documentation accurately reflects all work, treatment, procedures, and medical decision making performed by me. History of Present Illness - General Stated Complaint: UNABLE TO WALK Time Seen by Provider: 10/16/18 11:16 - History of Present Illness Initial Comments: 10/16/18 11:35 The patient is a 63 year old male, with a significant PMH of alcohol abuse, HTN , mesothelioma, who presents to the emergency department after being discharged this morning around 6am. [place] to the ED. Patient denies falls or trauma. Patient denies any complaints. Patient is intoxicated upon presentation. The patient denies chest pain, shortness of breath, headache and dizziness. Denies fever, chills, nausea, vomit, diarrhea and constipation. Denies dysuria, frequency, urgency and hematuria. Allergies: Fish Social history: EtOH abuse PCP: Dr. Cornejo Past History - Past Medical History Allergies/Adverse Reactions: Allergies Allergy/AdvReac Type Severity Reaction Status Date / Time Fish Containing Products Allergy Mild Swelling Verified 10/16/18 11:52 No Known Drug Allergies Allergy Verified 10/16/18 11:52 Anemia: No Asthma: No Cancer: Yes (mesothelioma lung cancer) Cardiac Disorders: No CVA: No COPD: No CHF: No DVT: No Dementia: No Diabetes: No GI Disorders: No Disorders: No HTN: Yes (non compliance) Hypercholesterolemia: No Kidney Stones: No Liver Disease: No Psychiatric Problems: Yes (etoh) Seizures: No Thyroid Disease: No - Surgical History Abdominal Surgery: No Appendectomy: No Cardiac Surgery: No Cholecystectomy: No Lung Surgery: No Neurologic Surgery: No Orthopedic Surgery: No - Family Disease History Family Disease History: CA: Mother - Reproductive History Testicular Surgery: No - Immunization History TDAP Vaccination: Yes Immunization Up to Date: Yes - Suicide/Smoking/Psychosocial Hx Smoking Status: No Smoking History: Never smoked Have you smoked in the past 12 months: No Number of Cigarettes Smoked Daily: 0 If you are a former smoker, when did you quit?: 0 Cigars Per Day: 0 'Breaking Loose' booklet given: 09/22/17 Hx Alcohol Use: No Drug/Substance Use Hx: No Substance Use Type: Alcohol Hx Substance Use Treatment: Yes ([facility] 04/05/18 to 04/08/18) Review of Systems - Review of Systems Comments:: 10/16/18 11:36 GENERAL/CONSTITUTIONAL: (+)intoxicated. No fever or chills. No weakness. HEAD, EYES, EARS, NOSE AND THROAT: No change in vision. No ear pain or discharge. No sore throat. CARDIOVASCULAR: No chest pain or shortness of breath. RESPIRATORY: No cough, wheezing, or hemoptysis. GASTROINTESTINAL: No nausea, vomiting, diarrhea or constipation. GENITOURINARY: No dysuria, frequency, or change in urination. MUSCULOSKELETAL: No joint or muscle swelling or pain. No neck or back pain. SKIN: No rash NEUROLOGIC: No headache, vertigo, loss of consciousness, or change in strength/ sensation. Constitutional: No: Chills, Fever Respiratory: No: Cough, Shortness of Breath Cardiac (ROS): No: Chest Pain, Syncope ABD/GI: No: Vomiting Neurological: No: Headache All Other Systems: Reviewed and Negative *Physical Exam - Physical Exam Comments: 10/16/18 11:35 General: (+)smells of alcohol (+)disheveled Head: (+)Old abrasion to the chin. Atraumatic and nontender. Neck: The trachea is midline, there is no stridor. There is no midline cervical spine tenderness, full range of motion of neck. Chest: Nontender, no ecchymosis or abrasions. Heart: S1-S2, regular rate and rhythm. No murmurs. Lungs: Clear to auscultation bilaterally. Symmetric chest rise. Abdomen: Soft/nontender/nondistended. Bowel sounds are normal. There is no abdominal or flank ecchymosis. Back/Pelvis: There is no midline spine tenderness or step-off. Pelvis is stable and nontender. Extremities: There is no extremity deformity or joint swelling. No focal bony tenderness throughout. 2+ distal pulses throughout. Neuro: Alert and oriented x3. Cranial nerves II through XII are intact. 5 out of 5 motor strength x4 extremities. Gacalr-[id number]-[id number] is intact. No pronator drift. Skin: No abrasions/hematomas/lacerations. Medical Decision Making - Medical Decision Making 10/16/18 11:45 63-year-old male well known to us multiple medical problems, chronic alcoholism just discharged about 4 hours ago presents now with EMS with alcohol intoxication, denies any acute cardiopulmonary complaints and denies any falls. No other complaints. Exam is unremarkable, vitals are stable Appearance at his baseline and conversant Observe until clinically sober no indication for emergent testing 10/16/18 13:27 sitting up eating a meal tray. feels well, no complaints. anticipate d/c 10/16/18 14:00 ambulating after lunch, wants to be d/c. *DC/Admit/Observation/Transfer Diagnosis at time of Disposition: Alcohol intoxication Qualifiers: Complication of substance-induced condition: uncomplicated Qualified Code(s): F10.920 - Alcohol use, unspecified with intoxication, uncomplicated - Discharge Dispostion Condition at time of disposition: Improved - Referrals Referrals: Lily Cornejo [Primary Care Provider] - - Patient Instructions Printed Discharge Instructions: DI for Alcohol Abuse - Post Discharge Activity
[2018-10-16 11:55] VITALS: BMI 30.1
[2018-10-16 14:11] VITALS: BP 115/72; PULSE 89; TEMP 97.2
== END 2018-10-16 14:45 | disposition home or self-care (01) ==
LOC: JER 11:06
DX: F10.920 Alcohol use, unspecified with intoxication, uncomplicated (principal); I10 Essential (primary) hypertension; C45.9 Mesothelioma, unspecified
CPT/HCPCS: 99282-25

== ENCOUNTER 2018-10-24 17:00 | Emergency (ER) | payer OTHER ==
[2018-10-24 17:09] VITALS: BP 150/92; PULSE 90; TEMP 98; BMI 27.9
--- NOTE | 2018-10-24 17:36 | PDOC ---
History of Present Illness - General Chief Complaint: Alcohol intoxication Stated Complaint: DIFFICULTY WALKING Time Seen by Provider: 10/24/18 17:23 History Source: Patient Exam Limitations: Intoxication - History of Present Illness Initial Comments: 10/24/18 17:26 63M with PMH of 63 y/o M hx EtOH abuse, chronic back pain, HTN, mesothelioma was BIBEMS for alcohol intoxication. Pt denies any acute complaints and is requesting food. Past History - Past Medical History Allergies/Adverse Reactions: Allergies Allergy/AdvReac Type Severity Reaction Status Date / Time Fish Containing Products Allergy Mild Swelling Verified 10/24/18 17:09 No Known Drug Allergies Allergy Verified 10/24/18 17:09 Home Medications: Ambulatory Orders NK [No Known Home Medication] 10/18/18 Anemia: No Asthma: No Cancer: Yes (mesothelioma lung cancer) Cardiac Disorders: No CVA: No COPD: No CHF: No DVT: No Dementia: No Diabetes: No GI Disorders: No Disorders: No HTN: Yes (non compliance) Hypercholesterolemia: No Kidney Stones: No Liver Disease: No Psychiatric Problems: Yes (etoh) Seizures: No Thyroid Disease: No - Surgical History Abdominal Surgery: No Appendectomy: No Cardiac Surgery: No Cholecystectomy: No Lung Surgery: No Neurologic Surgery: No Orthopedic Surgery: No - Family Disease History Family Disease History: CA: Mother - Reproductive History Testicular Surgery: No - Immunization History TDAP Vaccination: Yes Immunization Up to Date: Yes - Suicide/Smoking/Psychosocial Hx Smoking Status: No Smoking History: Never smoked Have you smoked in the past 12 months: No Number of Cigarettes Smoked Daily: 0 If you are a former smoker, when did you quit?: 0 Cigars Per Day: 0 Information on smoking cessation initiated: No 'Breaking Loose' booklet given: 09/22/17 Hx Alcohol Use: No Drug/Substance Use Hx: No Substance Use Type: Alcohol Hx Substance Use Treatment: Yes ([facility] 04/05/18 to 04/08/18) Review of Systems - Review of Systems Able to Perform ROS?: No (intox) Is the patient limited Albanian proficient: No *Physical Exam - Vital Signs Last Vital Signs Temp Pulse Resp BP Pulse Ox 98.0 F 90 16 150/92 95 10/24/18 17:02 10/24/18 17:02 10/24/18 17:02 10/24/18 17:02 10/24/18 17:02 - Physical Exam General Appearance: Yes: Nourished, Disheveled. No: Apparent Distress HEENT: positive: Normal Voice, Hearing Grossly Normal Neck: negative: Decreased range of motion Respiratory/Chest: negative: Labored Respiration, Rapid RR Gastrointestinal/Abdominal: negative: Protuberent, Distended Extremity: positive: Normal Inspection, Normal Range of Motion Integumentary: positive: Dry, Warm Neurologic: positive: Normal Mood/Affect Medical Decision Making - Medical Decision Making 10/24/18 17:36 63M presents via EMS intoxicated, well known to our ED. Will monitor until clinically sober. *DC/Admit/Observation/Transfer - Referrals Referrals: Lily Cornejo [Primary Care Provider] - - Patient Instructions - Post Discharge Activity
--- NOTE | 2018-10-24 17:40 | PDOC ---
Attending Attestation - Resident Resident Name: IsaikimberleyKelvin - ED Attending Attestation I have performed the following: I have examined & evaluated the patient, The case was reviewed & discussed with the resident, I agree w/resident's findings & plan, Exceptions are as noted - HPI HPI: 10/24/18 18:31 disheveled 63 yo male BIBA for etoh intoxicatio - Physicial Exam PE: 10/25/18 18:00 DISHEVELED 63 YO MALE BIBA FOR ETOH INTOX head jesus lung rhonchi cvs [id number] abd protuberant ext chronic skin changes skin warm and dry neuro conversant,sl somnolent,admits to drinking etoh - Medical Decision Making 10/25/18 18:05 pt d/c home when safe
== END 2018-10-24 23:38 | disposition home or self-care (01) ==
LOC: JER 17:00
DX: F10.120 Alcohol abuse with intoxication, uncomplicated (principal); C45.9 Mesothelioma, unspecified; I10 Essential (primary) hypertension
CPT/HCPCS: 99281-25

== ENCOUNTER 2018-10-25 18:49 | Emergency (ER) | payer OTHER ==
[2018-10-25 19:58] VITALS: TEMP 97.9; BMI 32.8
--- NOTE | 2018-10-25 21:36 | PDOC ---
History of Present Illness - General Chief Complaint: Alcohol intoxication Stated Complaint: INTOX Time Seen by Provider: 10/25/18 21:27 History Source: Patient Exam Limitations: No Limitations - History of Present Illness Initial Comments: 10/25/18 21:35 63 yo M with a hx of HTN, mesothelioma, ETOH abuse, multiple fractures of the ribs and extremities in the past, and fractures in the vertebral column presents to the emergency department with ETOH intoxication. Per the patient, he states he has been drinking all day and was picked up by EMS. No symptomatic complaints Past History - Past Medical History Allergies/Adverse Reactions: Allergies Allergy/AdvReac Type Severity Reaction Status Date / Time Fish Containing Products Allergy Mild Swelling Verified 10/24/18 17:09 No Known Drug Allergies Allergy Verified 10/24/18 17:09 Home Medications: Ambulatory Orders NK [No Known Home Medication] 10/18/18 Anemia: No Asthma: No Cancer: Yes (mesothelioma lung cancer) Cardiac Disorders: No CVA: No COPD: No CHF: No DVT: No Dementia: No Diabetes: No GI Disorders: No Disorders: No HTN: Yes (non compliance) Hypercholesterolemia: No Kidney Stones: No Liver Disease: No Psychiatric Problems: Yes (etoh) Seizures: No Thyroid Disease: No - Surgical History Abdominal Surgery: No Appendectomy: No Cardiac Surgery: No Cholecystectomy: No Lung Surgery: No Neurologic Surgery: No Orthopedic Surgery: No - Family Disease History Family Disease History: CA: Mother - Reproductive History Testicular Surgery: No - Immunization History TDAP Vaccination: Yes Immunization Up to Date: Yes - Suicide/Smoking/Psychosocial Hx Smoking Status: No Smoking History: Never smoked Have you smoked in the past 12 months: No Number of Cigarettes Smoked Daily: 0 If you are a former smoker, when did you quit?: 0 Cigars Per Day: 0 'Breaking Loose' booklet given: 09/22/17 Hx Alcohol Use: Yes Drug/Substance Use Hx: No Substance Use Type: Alcohol Hx Substance Use Treatment: Yes ([facility] 04/05/18 to 04/08/18) *Physical Exam - Vital Signs Last Vital Signs Temp Pulse Resp BP Pulse Ox 97.9 F 80 18 110/51 L 95 10/25/18 19:15 10/25/18 19:15 10/25/18 19:15 10/25/18 19:15 10/25/18 19:15
--- NOTE | 2018-10-25 22:39 | PDOC ---
Attending Attestation - Resident Resident Name: Kobi Carrasco - ED Attending Attestation I have performed the following: I have examined & evaluated the patient, The case was reviewed & discussed with the resident, I agree w/resident's findings & plan, Exceptions are as noted - HPI HPI: 10/25/18 22:38 63 M here for ETOH intoxication. Pt denies any acute complaints. Denies falling/ trauma. - Physicial Exam PE: 10/25/18 22:38 "GENERAL: Awake, alert, and fully oriented, in no acute distress. HEAD: No signs of trauma EYES: PERRLA, EOMI, sclera anicteric, conjunctiva clear ENT: Auricles normal inspection, hearing grossly normal, nares patent, oropharynx clear without exudates. Moist mucosa NECK: Nontender, no stepoffs, Normal ROM, supple, no lymphadenopathy, JVD, or masses LUNGS: Breath sounds equal, clear to auscultation bilaterally. No wheezes, and no crackles HEART: Regular rate and rhythm, normal S1 and S2, no murmurs, rubs or gallops ABDOMEN: Soft, nontender, normoactive bowel sounds. No guarding, no rebound. No masses EXTREMITIES: Normal range of motion, no edema. No clubbing or cyanosis. No cords, erythema, or tenderness NEUROLOGICAL: Cranial nerves II through XII intact. 5/5 strength and sensation in all extremities, Normal speech, normal gait, normal cerebellar function SKIN: Warm, Dry, normal turgor, no rashes or lesions noted. - Medical Decision Making 10/25/18 22:39 63 M with ETOH intoxication. No evidence of trauma on exam. - Reassess when sober 10/26/18 06:15 Pt reassessed - ambulatory in ED with steady gait. Clinically sober at this time Pt is well appearing, with normal vitals. Clinically stable for DC at this time. I discussed the physical exam findings, ancillary test results and final diagnoses with the patient. I answered all of the patient's questions. The patient was satisfied with the care received and felt comfortable with the discharge plan and treatment plan. The patient agrees to follow up with the primary care physician within 24-72 hours.
--- NOTE | 2018-10-26 00:33 | PDOC ---
*Physical Exam - Vital Signs Last Vital Signs Temp Pulse Resp BP Pulse Ox 97.9 F 80 18 110/51 L 95 10/25/18 19:15 10/25/18 19:15 10/25/18 19:15 10/25/18 19:15 10/25/18 19:15 <Jamal Rodriges - Last Filed: 10/26/18 06:14> - Vital Signs Last Vital Signs Temp Pulse Resp BP Pulse Ox 97.9 F 80 18 110/51 L 95 10/25/18 19:15 10/25/18 19:15 10/25/18 19:15 10/25/18 19:15 10/25/18 19:15 <Gareth Dan - Last Filed: 10/26/18 08:29> Medical Decision Making - Medical Decision Making 10/26/18 00:00 Received sign out from resident Dr. Carrasco. In short, pt is a 63 y /o man very, very well known to this department presenting with acute alcohol intoxication. No reported chief complaint. Appearing clinically intoxication without obvious signs of trauma. Pt awoke and found to be clinically sober with steady gait. Discharged by ED Attending. <Gareth Dan - Last Filed: 10/26/18 08:29> *DC/Admit/Observation/Transfer <Jaaml Rodriges - Last Filed: 10/26/18 06:14> <Gareth Dan - Last Filed: 10/26/18 08:29> Diagnosis at time of Disposition: Alcohol intoxication - Discharge Dispostion Disposition: HOME Condition at time of disposition: Improved - Patient Instructions Printed Discharge Instructions: DI for Alcohol Abuse Additional Instructions: Refrain from drinking alcohol. Follow up with your primary doctor tomorrow.
[2018-10-26 06:26] VITALS: BP 112/55; PULSE 82
== END 2018-10-26 06:34 | disposition home or self-care (01) ==
LOC: JER 18:49
DX: F10.120 Alcohol abuse with intoxication, uncomplicated (principal); C45.9 Mesothelioma, unspecified; I10 Essential (primary) hypertension
CPT/HCPCS: 99282-25

== ENCOUNTER 2018-10-27 16:35 | Emergency (ER) | payer OTHER ==
[2018-10-27 16:55] VITALS: BP 106/72; PULSE 84; TEMP 98.9
--- NOTE | 2018-10-27 17:00 | PDOC ---
History of Present Illness - General Chief Complaint: Alcohol intoxication Stated Complaint: INTOX Time Seen by Provider: 10/27/18 16:58 History Source: Patient Exam Limitations: Intoxication - History of Present Illness Initial Comments: 10/27/18 16:58 63 year old male with PMH well known to the Emergency Department BIBA to ED for ETOH intoxication. Pt reported no complaints. Past History - Past Medical History Allergies/Adverse Reactions: Allergies Allergy/AdvReac Type Severity Reaction Status Date / Time Fish Containing Products Allergy Mild Swelling Verified 10/28/18 20:38 No Known Drug Allergies Allergy Verified 10/28/18 20:38 Home Medications: Ambulatory Orders NK [No Known Home Medication] 10/18/18 Anemia: No Asthma: No Cancer: Yes (mesothelioma lung cancer) Cardiac Disorders: No CVA: No COPD: No CHF: No DVT: No Dementia: No Diabetes: No GI Disorders: No Disorders: No HTN: Yes (non compliance) Hypercholesterolemia: No Kidney Stones: No Liver Disease: No Psychiatric Problems: Yes (etoh) Seizures: No Thyroid Disease: No - Surgical History Abdominal Surgery: No Appendectomy: No Cardiac Surgery: No Cholecystectomy: No Lung Surgery: No Neurologic Surgery: No Orthopedic Surgery: No - Family Disease History Family Disease History: CA: Mother - Reproductive History Testicular Surgery: No - Immunization History TDAP Vaccination: Yes Immunization Up to Date: Yes - Suicide/Smoking/Psychosocial Hx Smoking Status: No Smoking History: Current every day smoker Have you smoked in the past 12 months: No Number of Cigarettes Smoked Daily: 0 If you are a former smoker, when did you quit?: 0 Cigars Per Day: 0 Information on smoking cessation initiated: No 'Breaking Loose' booklet given: 09/22/17 Hx Alcohol Use: Yes Drug/Substance Use Hx: No Substance Use Type: Alcohol Hx Substance Use Treatment: Yes ([facility] 04/05/18 to 04/08/18) Review of Systems - Review of Systems Able to Perform ROS?: Yes Constitutional: No: Chills, Fever HEENTM: No: Throat Pain Respiratory: No: Cough, Shortness of Breath Cardiac (ROS): No: Chest Pain, Palpitations ABD/GI: No: Diarrhea, Nausea, Vomiting : No: Burning, Dysuria Musculoskeletal: No: Back Pain Neurological: No: Headache, Numbness, Seizure, Tingling, Weakness *Physical Exam - Vital Signs Last Vital Signs Temp Pulse Resp BP Pulse Ox 98.9 F 84 20 106/72 95 10/27/18 16:42 10/27/18 16:42 10/27/18 16:42 10/27/18 16:42 10/27/18 16:42 - Physical Exam General Appearance: Yes: Nourished, Disheveled, Obese HEENT: positive: EOMI, DOUGLAS Neck: positive: Trachea midline, Supple. negative: Tender Respiratory/Chest: positive: Lungs Clear, Normal Breath Sounds Cardiovascular: positive: Regular Rhythm, Regular Rate Gastrointestinal/Abdominal: positive: Normal Bowel Sounds, Flat, Soft. 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 Initial Vital Signs Temp Pulse Resp BP Pulse Ox 98.9 F 84 20 106/72 95 10/27/18 16:42 10/27/18 16:42 10/27/18 16:42 10/27/18 16:42 10/27/18 16:42 Afebrile. No tachycardia. No tachypnea. Mild hypotension. No hypoxia on room air. Labs ordered: none Imaging ordered: none Medications ordered: none 10/27/18 20:35 Pt is less intoxicated, has no complaints. Pt discharged. *DC/Admit/Observation/Transfer Diagnosis at time of Disposition: Alcohol intoxication - Discharge Dispostion Disposition: HOME Condition at time of disposition: Improved Decision to Admit order: No - Referrals - Patient Instructions Printed Discharge Instructions: DI for Alcohol Abuse Additional Instructions: Follow up with your primary care doctor within 2 days. Return to the Emergency Department for chest pain, shortness of breath, seizures , vomiting, or any other new, worsening or concerning symptoms. - Post Discharge Activity
== END 2018-10-27 20:52 | disposition home or self-care (01) ==
LOC: JER 16:35
DX: F10.120 Alcohol abuse with intoxication, uncomplicated (principal); I10 Essential (primary) hypertension; C45.9 Mesothelioma, unspecified; F17.210 Nicotine dependence, cigarettes, uncomplicated
CPT/HCPCS: 99282-25

== ENCOUNTER 2018-10-28 20:30 | Emergency (ER) | payer OTHER ==
--- NOTE | 2018-10-28 20:34 | PDOC ---
Rapid Medical Evaluation Chief Complaint: Alcohol intoxication Time Seen by Provider: 10/28/18 20:33 Medical Evaluation: Allergies Allergy/AdvReac Type Severity Reaction Status Date / Time Fish Containing Products Allergy Mild Swelling Verified 10/24/18 17:09 No Known Drug Allergies Allergy Verified 10/24/18 17:09 I have performed a brief in-person evaluation of this patient. The patient presents with a chief complaint of: BIBEMS for alcohol intoxication Pertinent physical exam findings: Intoxicated I have ordered the following: Nothing The patient will proceed to the ED for further evaluation. 10/28/18 20:33
[2018-10-28 20:38] VITALS: BP 165/77; PULSE 87; TEMP 97.5; BMI 38.7
--- NOTE | 2018-10-29 00:54 | PDOC ---
History of Present Illness - General Chief Complaint: Alcohol intoxication Stated Complaint: INTOX Time Seen by Provider: 10/28/18 20:33 History Source: Patient, Old Records Exam Limitations: Intoxication - History of Present Illness Initial Comments: 10/29/18 00:53 Patients Doctor(s): PCP none History of Present Illness: 62-year-old male with past mental history of mesothelioma with long history of EtOH abuse and multiple ER visits and admission secondary to EtOH abuse is presented to the emergency department by EMS secondary to public intoxication. Patient presently states that he is experiencing pain to his lower back. Patient is not slurring his speech at this time but is unstable in gait and is intoxicated. Patient is presently able to deny chest pain, back pain, dizziness , blurred vision, nausea/vomiting, diarrhea, constipation, fever or chills. Patient denies use of any [id number] medication for the treatment of this complaint. Patient denies any sick contacts, travel outside the [place] or contact with any sick individuals who have been outside the [place]. Review of Systems: GENERAL/CONSTITUTIONAL: No fever or chills. No weakness. No weight change. HEAD, EYES, EARS, NOSE AND THROAT: No change in vision. No ear pain or discharge. No sore throat. CARDIOVASCULAR: No chest pain or shortness of breath. RESPIRATORY: No cough, wheezing, or hemoptysis. GASTROINTESTINAL: No nausea, vomiting, diarrhea or constipation. No rectal bleeding. GENITOURINARY: No dysuria, frequency, or change in urination. MUSCULOSKELETAL: No joint or muscle swelling or pain. No neck or back pain. SKIN AND BREASTS: No rash or easy bruising. NEUROLOGIC: No headache, vertigo, loss of consciousness, or loss of sensation. PSYCHIATRIC: EtOH abuse, No depression or anxiety. ENDOCRINE: No increased thirst. No abnormal weight change. HEMATOLOGIC/LYMPHATIC: No anemia, easy bleeding, or history of blood clots. ALLERGIC/IMMUNOLOGIC: No hives or skin allergy. No latex allergy. Past Medical History: Mesothelioma Family History: Mother with cancer Social History: EtOH abuse Surgical history: Denies Allergies: No known drug allergies Past History - Past Medical History Allergies/Adverse Reactions: Allergies Allergy/AdvReac Type Severity Reaction Status Date / Time Fish Containing Products Allergy Mild Swelling Verified 10/28/18 20:38 No Known Drug Allergies Allergy Verified 10/28/18 20:38 Home Medications: Ambulatory Orders NK [No Known Home Medication] 10/18/18 Anemia: No Asthma: No Cancer: Yes (mesothelioma lung cancer) Cardiac Disorders: No CVA: No COPD: No CHF: No DVT: No Dementia: No Diabetes: No Dialysis: No GI Disorders: No Disorders: No HTN: Yes (non compliance) Hypercholesterolemia: No Kidney Stones: No Liver Disease: No Psychiatric Problems: Yes (etoh) Seizures: No Thyroid Disease: No Lung CA: No - Surgical History Abdominal Surgery: No Appendectomy: No Cardiac Surgery: No Cholecystectomy: No Lung Surgery: No Neurologic Surgery: No Orthopedic Surgery: No - Family Disease History Family Disease History: CA: Mother - Reproductive History Testicular Surgery: No - Immunization History TDAP Vaccination: Yes Immunization Up to Date: Yes - Suicide/Smoking/Psychosocial Hx Smoking Status: No Smoking History: Never smoked Have you smoked in the past 12 months: No Number of Cigarettes Smoked Daily: 0 If you are a former smoker, when did you quit?: 0 Cigars Per Day: 0 Information on smoking cessation initiated: No 'Breaking Loose' booklet given: 09/22/17 Hx Alcohol Use: No Drug/Substance Use Hx: No Substance Use Type: Alcohol Hx Substance Use Treatment: Yes ([facility] 04/05/18 to 04/08/18) *Physical Exam - Vital Signs Last Vital Signs Temp Pulse Resp BP Pulse Ox 97.5 F L 87 22 H 165/77 95 10/28/18 20:33 10/28/18 20:33 10/28/18 20:33 10/28/18 20:33 10/28/18 20:33 Medical Decision Making - Medical Decision Making 10/29/18 00:53 A/P: Patient is a male with history of mesothelioma and EtOH abuse presented to the emergency department by EMS secondary to public intoxication. I will observe patient in the emergency department clinical sobriety is achieved. 10/29/18 05:45 Patient is ambulatory on the unit back and forth to the bathroom with steady gait. Patient is not using his cane during ambulation. Patient with coherent sentences at this time. No slurred speech is present. Patient has achieved clinical sobriety I will discharge home. *DC/Admit/Observation/Transfer Diagnosis at time of Disposition: Alcohol dependence with intoxication Qualifiers: Complication of substance-induced condition: uncomplicated Qualified Code(s): F10.220 - Alcohol dependence with intoxication, uncomplicated - Discharge Dispostion Disposition: HOME Condition at time of disposition: Improved Decision to Admit order: No - Referrals - Patient Instructions Printed Discharge Instructions: DI for Alcohol Abuse Additional Instructions: Avoid alcoholic beverages. Eat a well-balanced diet. Keep well-hydrated with nonalcoholic fluids. Should you decide you would like to stop drinking go to [address] [place] [address] for detox and rehabilitation placement. Return to the emergency department for any new or worsening symptoms. Thank you very much for choosing us to provide your emergent health care needs. - Post Discharge Activity
--- NOTE | 2018-10-29 03:37 | PDOC ---
*Physical Exam - Vital Signs Last Vital Signs Temp Pulse Resp BP Pulse Ox 97.5 F L 87 22 H 165/77 95 10/28/18 20:33 10/28/18 20:33 10/28/18 20:33 10/28/18 20:33 10/28/18 20:33 Medical Decision Making - Medical Decision Making 10/29/18 03:37 Case reviewed with FIRE TECHNICIAN Pan Agree with assessment and plan *DC/Admit/Observation/Transfer Diagnosis at time of Disposition: Alcohol dependence with intoxication Qualifiers: Complication of substance-induced condition: uncomplicated Qualified Code(s): F10.220 - Alcohol dependence with intoxication, uncomplicated - Discharge Dispostion Disposition: HOME Condition at time of disposition: Improved - Referrals - Patient Instructions Printed Discharge Instructions: DI for Alcohol Abuse Additional Instructions: Avoid alcoholic beverages. Eat a well-balanced diet. Keep well-hydrated with nonalcoholic fluids. Should you decide you would like to stop drinking go to [address] [place] [address] for detox and rehabilitation placement. Return to the emergency department for any new or worsening symptoms. Thank you very much for choosing us to provide your emergent health care needs. - Post Discharge Activity
== END 2018-10-29 06:33 | disposition home or self-care (01) ==
LOC: JER 20:30
DX: F10.220 Alcohol dependence with intoxication, uncomplicated (principal); M54.89 Other dorsalgia; I10 Essential (primary) hypertension; C45.9 Mesothelioma, unspecified; Z91.013 Allergy to seafood; Z59.0 Homelessness
CPT/HCPCS: 99282-25

== ENCOUNTER 2018-10-31 22:04 | Emergency (ER) | payer OTHER ==
[2018-10-31 22:08] VITALS: PULSE 78; TEMP 98.4; BMI 36.1
--- NOTE | 2018-10-31 22:09 | PDOC ---
History of Present Illness - General Chief Complaint: Alcohol intoxication Stated Complaint: INTOX Time Seen by Provider: 10/31/18 22:08 - History of Present Illness Initial Comments: Sunil De Leon is a 63yo man with a PMH of HTn, mesothelioma, chronic back pain, alcohol abuse, well known to the ED who presents with alcohol intoxication. He reports low back pain that he states is due to a previous fracture. It is unchanged from his typical pain. He has no new complaints. Past History - Past Medical History Allergies/Adverse Reactions: Allergies Allergy/AdvReac Type Severity Reaction Status Date / Time Fish Containing Products Allergy Mild Swelling Verified 10/31/18 22:06 No Known Drug Allergies Allergy Verified 10/31/18 22:06 Home Medications: Ambulatory Orders NK [No Known Home Medication] 10/18/18 Anemia: No Asthma: No Cancer: Yes (mesothelioma lung cancer) Cardiac Disorders: No CVA: No COPD: No CHF: No DVT: No Dementia: No Diabetes: No Dialysis: No GI Disorders: No Disorders: No HTN: Yes (non compliance) Hypercholesterolemia: No Kidney Stones: No Liver Disease: No Psychiatric Problems: Yes (etoh) Seizures: No Thyroid Disease: No Lung CA: No - Surgical History Abdominal Surgery: No Appendectomy: No Cardiac Surgery: No Cholecystectomy: No Lung Surgery: No Neurologic Surgery: No Orthopedic Surgery: No - Family Disease History Family Disease History: CA: Mother - Reproductive History Testicular Surgery: No - Immunization History TDAP Vaccination: Yes Immunization Up to Date: Yes - Suicide/Smoking/Psychosocial Hx Smoking Status: No Smoking History: Never smoked Have you smoked in the past 12 months: No Number of Cigarettes Smoked Daily: 0 If you are a former smoker, when did you quit?: 0 Cigars Per Day: 0 'Breaking Loose' booklet given: 09/22/17 Hx Alcohol Use: No Drug/Substance Use Hx: No Substance Use Type: Alcohol Hx Substance Use Treatment: Yes ([facility] 04/05/18 to 04/08/18) Review of Systems - Review of Systems Comments:: General: No fevers, no chills, no weight or appetite change, no malaise HEENT: No changes in vision, no changes in hearing, no congestion, no sore throat CV: No chest pain, no palpitations, no LE edema Pulm: No SOB, no cough, no wheezing GI: No nausea or vomiting, no change in bowel habits, no melena : No frequency, no urgency, no dysuria Musc: + back pain, no joint swelling, no recent injury Skin: No rash, no lesions, no erythema Endo: No excessive thirst, no heat/cold intolerance Heme: No unusual bruising or bleeding, no swollen glands Neuro: No syncope, no numbness/tingling, no focal weakness Psych: No recent change in mood, no SI or HI. +alcohol abuse *Physical Exam - Vital Signs Last Vital Signs Temp Pulse Resp BP Pulse Ox 98.4 F 78 18 134/74 95 10/31/18 22:06 10/31/18 22:06 10/31/18 22:06 10/31/18 22:06 10/31/18 22:06 - Physical Exam Comments: General: Intoxicated, no acute distress HEENT: PERRL, EOMI, purulent discharge in R eye, MMM, atraumatic Cards: RRR Pulm: Comfortable on room air Abd: Soft, nontender, nondistended Ext: Atraumatic. 2+ LE edema. ROM intact. Strength 5/5 and equal bilaterally Vasc: Extremities WWP Skin: Normal color, no rashes or lesions Neuro: A&Ox3, CN grossly intact, minimally slurred speech, motor/sensory grossly intact and symmetric Psych: Mood appropriate to situation Medical Decision Making - Medical Decision Making 10/31/18 22:14 Sunil De Leon is a 63yo man with a PMH of HTn, mesothelioma, chronic back pain, alcohol abuse, well known to the ED who presents with alcohol intoxication. He reports low back pain that he states is due to a previous fracture. It is unchanged from his typical pain. He has no new complaints. - Requesting robaxin for back pain, will order and reassess - Observe until clinically sober - Erythromycin drops for R eye w/ purulent discharge, likely conjunctivitis 10/31/18 22:49 - Appears clinically safe to discharge. Ambulating w/ steady gait, answering questions appropriately, A&O, no slurred speech - Will d/c home - Should follow up with primary care regarding conjunctivitis. Discussed with Dr Casanova. Kathie Higgins PGY1 *DC/Admit/Observation/Transfer Diagnosis at time of Disposition: Alcohol intoxication, Conjunctivitis - Discharge Dispostion Disposition: HOME Condition at time of disposition: Stable Decision to Admit order: No - Referrals Referrals: [facility] [place] [Provider Group] - Patient Instructions Printed Discharge Instructions: DI for Conjunctivitis Additional Instructions: Discharge Instructions You were seen in the ED for alcohol intoxication, and you were found to have an eye infection. You were given antibiotic ointment for your eye. This should be used twice daily for one week. Follow up with a primary care physician for further evaluation of your eye infection. It is strongly recommended that you consider going to alcohol detox or rehab. Seek immediate care for any medical emergency. - Post Discharge Activity
[2018-10-31 22:11] VITALS: BP 106/60
[2018-10-31] MEDS ORDERED: METHOCARBAMOL 500 MG TABLET PO ONE (22:18)
[2018-10-31] MEDS ORDERED: ERYTHROMYCIN 0.5% OPHTHALMIC OINTMENT 3.5 GM TUBE OD ONE (22:32)
--- NOTE | 2018-10-31 22:57 | PDOC ---
Documentation entered by Susu Gonzales SCRIBE, acting as scribe for Sue Casanova MD. Sue Casanova MD: This documentation has been prepared by the Janet pereira Nirvannie, SCRIBE, under my direction and personally reviewed by me in its entirety. I confirm that the documentation accurately reflects all work, treatment, procedures, and medical decision making performed by me. Attending Attestation - Resident Resident Name: GiselaKathie - ED Attending Attestation I have performed the following: I have examined & evaluated the patient, The case was reviewed & discussed with the resident, I agree w/resident's findings & plan - HPI HPI: 10/31/18 22:31 The patient is a 63 year old male, with a significant PMH of alcohol abuse, chronic back pain, HTN, mesothelioma, who presents to the emergency department s /p fall onto the face. While in the ED, pt is intoxicated and requests a hot meal. Patient denies any LOC or changes in strength or sensation. Social history: alcohol abuse Primary Care Physician: Dr. Garima Bridges - Physicial Exam PE: 10/31/18 22:31 +GENERAL: Disheveled. Malodorous. Alcohol on breath, intoxicated. No apparent distress. HEENT: +Right eye: discharge with crusting to the eyelashes. PERRL, EOM intact. CARDIOVASCULAR: Normal S1, S2. Regular rate and rhythm. PULMONARY: Clear to auscultation bilaterally. ABDOMEN: Soft, non-distended, non-tender. EXTREMITIES: Normal ROM in all four extremities. No gross deformities. SKIN: Warm, dry. No rash NEUROLOGICAL: Intoxicated. - Medical Decision Making 10/31/18 22:56 imp: conjunctivitis right eye/started on antibiotics eyes drops and he was given erythromycin eye ointment
== END 2018-10-31 23:56 | disposition home or self-care (01) ==
LOC: JER 22:04
DX: F10.220 Alcohol dependence with intoxication, uncomplicated (principal); H10.31 Unspecified acute conjunctivitis, right eye; I10 Essential (primary) hypertension; C45.9 Mesothelioma, unspecified; R60.0 Localized edema; M54.5 Low back pain; G89.29 Other chronic pain; Z59.0 Homelessness
CPT/HCPCS: 99283-25

== ENCOUNTER 2018-11-01 18:09 | Emergency (ER) | payer OTHER ==
[2018-11-01 18:48] VITALS: BMI 29.8
--- NOTE | 2018-11-01 21:38 | PDOC ---
*Physical Exam - Vital Signs Last Vital Signs Temp Pulse Resp BP Pulse Ox 98.0 F 75 16 155/95 100 11/01/18 18:10 11/01/18 18:10 11/01/18 18:10 11/01/18 18:10 11/01/18 18:10 Medical Decision Making - Medical Decision Making 11/01/18 21:38 Patient seen by the advanced practice provider under my direct supervision. Ancillary testing reviewed as necessary. I agree with plan as outlined by the advanced practice provider. *DC/Admit/Observation/Transfer Diagnosis at time of Disposition: Alcohol dependence - Referrals - Patient Instructions - Post Discharge Activity
--- NOTE | 2018-11-01 22:27 | PDOC ---
History of Present Illness - General Chief Complaint: Back Pain Stated Complaint: BACK PAIN Time Seen by Provider: 11/01/18 21:11 History Source: EMS - History of Present Illness Initial Comments: 11/02/18 04:18 63-year-old male HTn, mesothelioma, chronic back pain, alcohol abuse Brought in by ambulance for intoxication. Patient reports drinking a lot. Patient is alert awake with slurred speech. No signs of trauma noted. 11/02/18 04:21 Past History - Past Medical History Allergies/Adverse Reactions: Allergies Allergy/AdvReac Type Severity Reaction Status Date / Time Fish Containing Products Allergy Mild Swelling Verified 11/01/18 18:49 No Known Drug Allergies Allergy Verified 11/01/18 18:49 Home Medications: Ambulatory Orders NK [No Known Home Medication] 10/18/18 Anemia: No Asthma: No Cancer: Yes (mesothelioma lung cancer) Cardiac Disorders: No CVA: No COPD: No CHF: No DVT: No Dementia: No Diabetes: No Dialysis: No GI Disorders: No Disorders: No HTN: Yes (non compliance) Hypercholesterolemia: No Kidney Stones: No Liver Disease: No Psychiatric Problems: Yes (etoh) Seizures: No Thyroid Disease: No Lung CA: No - Surgical History Abdominal Surgery: No Appendectomy: No Cardiac Surgery: No Cholecystectomy: No Lung Surgery: No Neurologic Surgery: No Orthopedic Surgery: No - Family Disease History Family Disease History: CA: Mother - Reproductive History Testicular Surgery: No - Immunization History TDAP Vaccination: Yes Immunization Up to Date: Yes - Suicide/Smoking/Psychosocial Hx Smoking Status: No Smoking History: Never smoked Have you smoked in the past 12 months: No Number of Cigarettes Smoked Daily: 0 If you are a former smoker, when did you quit?: 0 Cigars Per Day: 0 Information on smoking cessation initiated: No 'Breaking Loose' booklet given: 09/22/17 Hx Alcohol Use: No Drug/Substance Use Hx: No Substance Use Type: Alcohol Hx Substance Use Treatment: Yes ([facility] 04/05/18 to 04/08/18) Trauma Specific PMHX - Complaint Specific PMHX Arthritis: No Back Injury: Yes (seen at this hospital for the rib fractures) Review of Systems - Review of Systems Able to Perform ROS?: Yes Is the patient limited Faroese proficient: No Psychiatric: Yes: Other (alcohol intoxication) *Physical Exam - Vital Signs Last Vital Signs Temp Pulse Resp BP Pulse Ox 98.0 F 75 16 155/95 100 11/01/18 18:10 11/01/18 18:10 11/01/18 18:10 11/01/18 18:10 11/01/18 18:10 - Physical Exam General Appearance: Yes: Disheveled, Alcohol on Breath Respiratory/Chest: positive: Normal Breath Sounds Cardiovascular: positive: Regular Rhythm, Regular Rate Extremity: positive: Normal Capillary Refill, Normal Inspection, Normal Range of Motion Integumentary: positive: Normal Color, Dry, Warm Neurologic: positive: Alert, Normal Mood/Affect, Other (responsive to verbal stimuli. answers questions) Progress Note - Progress Note Progress Note: A: alcohol abuse; P: sobriety likely will d/c Medical Decision Making - Medical Decision Making 11/02/18 00:34 patient asleep; arousable. refused finger stick BGM. 11/02/18 06:14 patient is awake. reports feeling nauseous. librium and zofran given 11/02/18 06:32 Patient awake no slurred speech reports feeling nauseous. c/o chest pain. EKG: sinus rhythm with PVCs. 11/02/18 06:58 patient is now comfortable. will d/c likely withdrawal symptoms. *DC/Admit/Observation/Transfer Diagnosis at time of Disposition: Alcohol dependence Qualifiers: Substance use status: unspecified alcohol-induced disorder Qualified Code(s): F10.29 - Alcohol dependence with unspecified alcohol-induced disorder - Referrals - Patient Instructions Printed Discharge Instructions: DI for Alcohol Abuse Additional Instructions: avoid drinking alcohol - Post Discharge Activity
[2018-11-02] MEDS ORDERED: chlordiazePOXIDE HCL 25 MG CAPSULE PO ONE ×2 (06:14→08:27)
[2018-11-02] MEDS ORDERED: ONDANSETRON 4 MG TABLET PO ONE (06:19)
--- NOTE | 2018-11-02 07:56 | PDOC ---
*Physical Exam - Vital Signs Last Vital Signs Temp Pulse Resp BP Pulse Ox 98.1 F 86 18 163/96 89 L 11/02/18 06:33 11/02/18 06:33 11/02/18 00:30 11/02/18 06:33 11/02/18 06:39 - Physical Exam Comments: 11/02/18 07:56 currently sleeping in ED General Appearance: Yes: Appropriately Dressed. No: Apparent Distress HEENT: positive: Normal Voice Respiratory/Chest: negative: Respiratory Distress Integumentary: positive: Dry, Warm ED Treatment Course - Medications Given in the ED: ED Medications Discontinued Medications Generic Name Dose Route Start Last Admin Trade Name Freq PRN Reason Stop Dose Admin Chlordiazepoxide HCl 50 mg 11/02/18 06:14 11/02/18 06:26 Librium - PO 11/02/18 06:15 50 mg ONCE ONE Administration Ondansetron HCl 4 mg 11/02/18 06:19 11/02/18 06:32 Zofran - PO 11/02/18 06:20 4 mg ONCE ONE Administration Medical Decision Making - Medical Decision Making 11/02/18 07:54 Patient signed out to me at 7 AM 63-year-old male, well-known to ED staff giving numerous visits, mostly for alcohol intoxication, also w/ history of hypertension, mesothelioma, chronic back pain, presented to ED with intoxication. Per prior team, patient sobered up throughout ED visit and upon discharge, complained of vague chest pain. EKG with PVCs, otherwise unremarkable. Patient pending reassessment and disposition 11/02/18 08:22 On reassessment, pt awake and more sober, but states he feels like he is withdrawing. Complaining of dizziness and nausea. No chest pain or shortness of breath at this time. On exam, rpt vital unremarkable and patient mildly tremulous to b/l UEs. Case discussed with ED attg who recommends giving patient another dose of librium and reassess in an hour. If not better, will admit to observation for alcohol withdrawal 11/02/18 10:29 Went to reassess pt but pt not currently in stretcher and not found in ED. No IV in place *DC/Admit/Observation/Transfer Diagnosis at time of Disposition: Alcohol dependence Qualifiers: Substance use status: unspecified alcohol-induced disorder Qualified Code(s): F10.29 - Alcohol dependence with unspecified alcohol-induced disorder - Discharge Dispostion Disposition: ELOPED Condition at time of disposition: Fair - Referrals - Patient Instructions Printed Discharge Instructions: DI for Alcohol Abuse Additional Instructions: avoid drinking alcohol - Post Discharge Activity
[2018-11-02 08:25] VITALS: BP 159/89; PULSE 89; TEMP 98.5
--- NOTE | 2018-11-02 13:32 | EKG ---
Test Reason : Blood Pressure : / mmHG Vent. Rate : 084 BPM Atrial Rate : 084 BPM P-R Int : 160 ms QRS Dur : 102 ms QT Int : 410 ms P-R-T Axes : 031 -39 038 degrees QTc Int : 484 ms SINUS RHYTHM WITH OCCASIONAL PREMATURE VENTRICULAR COMPLEXES LEFT AXIS DEVIATION PROLONGED QT ABNORMAL ECG WHEN COMPARED WITH ECG OF 06-OCT-2018 14:15, PREMATURE VENTRICULAR COMPLEXES ARE NOW PRESENT Confirmed by MD MICHAEL, JUNG ([id number]) on 11/02/2018 1:31:42 PM Referred By: Confirmed By:JUNG RODRIGUEZ MD
== END 2018-11-02 10:33 | disposition left against medical advice (07) ==
LOC: JER 18:09
DX: F10.220 Alcohol dependence with intoxication, uncomplicated (principal); F10.29 Alcohol dependence with unspecified alcohol-induced disorder; I10 Essential (primary) hypertension; C45.9 Mesothelioma, unspecified; M54.9 Dorsalgia, unspecified; G89.29 Other chronic pain; Z59.0 Homelessness
CPT/HCPCS: 93005; 93010; 99282-25

== ENCOUNTER 2018-11-02 10:08 | Inpatient (IN) | payer OTHER ==
[2018-11-02 10:52] VITALS: BMI 35.7
--- NOTE | 2018-11-02 11:36 | HP ---
CIWA Score Nausea/Vomitin Muscle Tremors: 3 Anxiety: 2 Agitation: 2 Paroxysmal Sweats: 1-Minimal Palms Moist Orientation: 0-Oriented Tacttile Disturbances: 1-Very Mild Itch/Numbness Auditory Disturbances: 1-Very Mild Visual Disturbances: 0-None Headache: 2-Mild CIWA-Ar Total Score: 15 - Admission Criteria OASAS Guidelines: Admission for Medically Managed Detox: Requires at least one of the followin. CIWA greater than 12 2. Seizures within the past 24 hours 3. Delirium tremens within the past 24 hours 4. Hallucinations within the past 24 hours 5. Acute intervention needed for co occurring medical disorder 6. Acute intervention needed for co occurring psychiatric disorder 7. Severe withdrawal that cannot be handled at a lower level of care (continued vomiting, continued diarrhea, abnormal vital signs) requiring intravenous medication and/or fluids 8. Admission ROS BHS - HPI Chief Complaint: i need help to stop drinking alcohol Allergies/Adverse Reactions: Allergies Allergy/AdvReac Type Severity Reaction Status Date / Time Fish Containing Products Allergy Mild Swelling Verified 11/02/18 10:43 No Known Drug Allergies Allergy Verified 11/02/18 10:43 History of Present Illness: this 63 years old male with alcohol dependence,extensive history of alcohol consumption,non compliance ,had vomiting seen in er at [facility] last night,receiving medication syncope alcohol related hypertension history of exposure to asbestos multiple admissions but keep relapsing longest sobriety 6 years plan for rehab after detox Exam Limitations: No Limitations - Ebola screening Have you traveled outside of the country in the last 21 days: No (N) Have you had contact with anyone from an Ebola affected area: No Do you have a fever: No - Review of Systems Constitutional: Loss of Appetite, Malaise, Night Sweats, Changes in sleep EENT: reports: Nose Congestion Respiratory: reports: No Symptoms reported, Other (history of mesolithioma) Cardiac: reports: No Symptoms Reported GI: reports: Nausea, Vomiting, Indigestion : reports: No Symptoms Reported Musculoskeletal: reports: Back Pain, Muscle Pain Integumentary: reports: Dryness Neuro: reports: Headache, Tremors Endocrine: reports: No Symptoms Reported Hematology: reports: No Symptoms Reported Psychiatric: reports: No Sypmtoms Reported, Judgement Intact, Mood/Affect Appropiate, Orientated x3 Other Systems: Reviewed and Negative Patient History - Patient Medical History Hx Anemia: No Hx Asthma: No Hx Chronic Obstructive Pulmonary Disease (COPD): No Hx Cancer: Yes (mesothelioma lung cancer) Hx Cardiac Disorders: No Hx Congestive Heart Failure: No Hx Hypertension: Yes (non compliance) Hx Hypercholesterolemia: No Hx Pacemaker: No HX Cerebrovascular Accident: No Hx Seizures: No Hx Dementia: No Hx Diabetes: No Hx Gastrointestinal Disorders: No Hx Liver Disease: No Hx Genitourinary Disorders: No Hx Sexually Transmitted Disorders: No Hx Renal Disease (ESRD): No Hx Thyroid Disease: No Hx Human Immunodeficiency Virus (HIV): No (never been tested,did not want the test done) Hx Hepatitis C: No Hx Depression: No Hx Suicide Attempt: No Hx Bipolar Disorder: No Hx Schizophrenia: No Other Medical History: no suicidal,no homicidal - Patient Surgical History Past Surgical History: No Hx Neurologic Surgery: No Hx Cataract Extraction: No Hx Cardiac Surgery: No Hx Lung Surgery: No Hx Breast Surgery: No Hx Breast Biopsy: No Hx Abdominal Surgery: No Hx Appendectomy: No Hx Cholecystectomy: No Hx Genitourinary Surgery: No Hx Section: No Hx Orthopedic Surgery: No Hx Hysterectomy: No Anesthesia Reaction: No - PPD History Previous Implant?: Yes Documented Results: Negative w/proof Implanted On Prior [facility] Admission?: Yes Date: 02/10/18 Results: 0 mm PPD to be Administered?: Yes - Smoking Cessation Smoking history: Never smoked Have you smoked in the past 12 months: No Aproximately how many cigarettes per day: 0 If you are a former smoker, when did you quit?: 0 Cigars Per Day: 0 Hx Chewing Tobacco Use: No - Substance & Tx. History Hx Alcohol Use: Yes Hx Substance Use: No Substance Use Type: Alcohol Hx Substance Use Treatment: Yes ([facility] 07/26/18 to 07/30/18) - Substances abused Alcohol Substance route: Oral Frequency: Daily Amount used: VODKA- 1- 3PTS Age of first use: 16 Date of last use: 11/01/18 Family Disease History - Family Disease History Family Disease History: CA: Mother (), Brother (Colon CA), Other: Grandparent (ALCOHOLISM), Father (ALCOHOL,), Son () Admission Physical Exam BHS - Vital Signs Vital Signs: Vital Signs - 24 hr 11/02/18 10:43 Temperature 98.2 F Pulse Rate 93 H Respiratory 20 Rate Blood Pressure 152/91 - Physical General Appearance: Yes: Moderate Distress, Tremorous, Irritable, Sweating, Anxious HEENTM: Yes: Normal ENT Inspection, DOUGLAS, Pharynx Normal Respiratory: Yes: Within Normal Limits, Lungs Clear, Normal Breath Sounds Neck: Yes: Within Normal Limits, Supple, Trachea in good position Breast: Yes: Within Normal Limits Cardiology: Yes: Within Normal Limits, Regular Rhythm, Regular Rate, S1, S2 Abdominal: Yes: Normal Bowel Sounds, Non Tender, Flat, Soft Genitourinary: Yes: Within Normal Limits Back: Yes: Muscle Spasm Musculoskeletal: Yes: Back pain, Muscle Pain Extremities: Yes: Within Normal Limits, Normal Range of Motion, Tremors Neurological: Yes: Within Normal Limits, counter sales representative II-XII NML intact, Fully Oriented, Alert, Motor Strength 5/5 Integumentary: Yes: Dry Lymphatic: Yes: Within Normal Limits - Diagnostic (1) Alcohol dependence with uncomplicated withdrawal Current Visit: Yes Status: Acute (2) Syncope Current Visit: Yes Status: Acute (3) HTN (hypertension) Current Visit: No Status: Chronic Qualifiers: Hypertension type: essential hypertension Qualified Code(s): I10 - Essential (primary) hypertension (4) Mesothelioma (pleural) Current Visit: No Status: Chronic Cleared for Admission S - Detox or Rehab S Level of Care: Medically Managed Detox Regimen/Protocol: Librium Breathalyzer - Breathalyzer Breathalyzer: 0 Urine Drug Screen - Test Device Lot number: [id number] Expiration date: 07/15/20 - Control Is test valid?: Yes - Results Urine drug screen results: BZO-Benzodiazepines Inpatient Rehab Admission - Rehab Decision to Admit Inpatient rehab admission?: No
[2018-11-02] MEDS ORDERED: MAGNESIUM CITRATE 300 ML BOTTLE PO PRN (11:46)
[2018-11-02] MEDS ORDERED: MAGNESIUM HYDROX 2400MG/30ML ORAL SUSPENSION 30 ML CUP PO PRN (11:46)
[2018-11-02] MEDS ORDERED: hydrOXYzine PAMOATE 25 MG CAPSULE (FP) PO PRN (11:46)
[2018-11-02] MEDS ORDERED: IBUPROFEN 400 MG TABLET (FP) PO PRN (11:46)
[2018-11-02] MEDS ORDERED: BISMUTH SUBSALICYLATE 262 MG/15 ML BTL PO PRN (11:46)
[2018-11-02] MEDS ORDERED: MAG HYDROX/AL HYDROX/SIMETH 30 ML UNIT-DOSE CUP PO PRN (11:46)
[2018-11-02] MEDS ORDERED: MENTHOL/PHENOL 1 EACH UD MM PRN (11:46)
[2018-11-02] MEDS ORDERED: ACETAMINOPHEN 325 MG TABLET (FP) PO PRN ×2 (11:46)
[2018-11-02] MEDS ORDERED: chlordiazePOXIDE HCL 25 MG CAPSULE PO PRN (11:46)
[2018-11-02 16:28] LABS: HEMATOCRIT 36.9 % (35.4-49); HEMOGLOBIN 11.5 GM/dL (11.7-16.9); MCH 25.8 pg (25.7-33.7); MCHC 31.1 g/dl (32.0-35.9); MEAN CELL VOLUME 83.2 fl (80-96); MEAN PLT VOLUME 7.8 fl (7.5-11.1); PLATELET COUNT 245 K/MM3 (134-434); RBC 4.44 M/mm3 (4.00-5.60); RDW 20.9 % (11.9-15.9); WHITE BLOOD COUNT 7.6 K/mm3 (4.0-10.0)
[2018-11-02 16:31] LABS: ALBUMIN 3.8 g/dl (3.4-5.0); BILIRUBIN,TOTAL 1.5 mg/dL (0.2-1); CALCIUM 8.5 mg/dL (8.5-10.1); CREATININE 0.6 mg/dL (0.55-1.3); POTASSIUM 3.2 mmol/L (3.5-5.1); TOT PROT 7.5 g/dl (6.4-8.2)
[2018-11-02] MEDS: chlordiazePOXIDE HCL 25 MG CAPSULE PO SCH ×2 (16:54→22:23)
[2018-11-02] MEDS: METHOCARBAMOL 500 MG TABLET PO PRN (16:55)
[2018-11-02] MEDS: MELATONIN 5 MG TABLETS PO PRN (22:23)
[2018-11-02] MEDS: THIAMINE HCL 100 MG TABLET (FP) PO SCH (22:23)
[2018-11-03] MEDS: chlordiazePOXIDE HCL 25 MG CAPSULE PO SCH ×4 (06:11→22:25)
[2018-11-03] MEDS ORDERED: PRENATAL VITAMINS W/ FOLIC ACID TABLET (FP) PO SCH (10:00)
--- NOTE | 2018-11-03 10:35 | PN ---
[facility] CIWA - CIWA Score Nausea/Vomitin-Mild Nausea/No Vomiting Muscle Tremors: 3 Anxiety: 3 Agitation: 3 Paroxysmal Sweats: 1-Minimal Palms Moist Orientation: 0-Oriented Tacttile Disturbances: 0-None Auditory Disturbances: 0-None Visual Disturbances: 0-None Headache: 0-None Present CIWA-Ar Total Score: 11 S Progress Note (SOAP) Subjective: ambulating with cane steady gait chronic lower back pain lidocain patch Objective: 11/03/18 10:33 Vital Signs Temperature 98.7 F 11/03/18 09:12 Pulse Rate 76 11/03/18 09:12 Respiratory Rate 18 11/03/18 09:12 Blood Pressure 118/71 11/03/18 09:12 O2 Sat by Pulse Oximetry (%) Laboratory Last Values WBC 7.6 K/mm3 (4.0-10.0) 11/02/18 11:45 RBC 4.44 M/mm3 (4.00-5.60) 11/02/18 11:45 Hgb 11.5 GM/dL (11.7-16.9) L 11/02/18 11:45 Hct 36.9 % (35.4-49) D 11/02/18 11:45 MCV 83.2 fl (80-96) 11/02/18 11:45 MCH 25.8 pg (25.7-33.7) 11/02/18 11:45 MCHC 31.1 g/dl (32.0-35.9) L 11/02/18 11:45 RDW 20.9 % (11.9-15.9) H 11/02/18 11:45 Plt Count 245 K/MM3 (134-434) 11/02/18 11:45 MPV 7.8 fl (7.5-11.1) 11/02/18 11:45 Sodium 141 mmol/L (136-145) 11/02/18 11:45 Potassium 3.2 mmol/L (3.5-5.1) L 11/02/18 11:45 Chloride 102 mmol/L (98-107) 11/02/18 11:45 Carbon Dioxide 31 mmol/L (21-32) 11/02/18 11:45 Anion Gap 8 MMOL/L (8-16) 11/02/18 11:45 BUN 7 mg/dL (7-18) 11/02/18 11:45 Creatinine 0.6 mg/dL (0.55-1.3) 11/02/18 11:45 Est GFR (CKD-EPI)AfAm 124.02 11/02/18 11:45 Est GFR (CKD-EPI)NonAf 107.00 11/02/18 11:45 Random Glucose 76 mg/dL (74-106) 11/02/18 11:45 Calcium 8.5 mg/dL (8.5-10.1) 11/02/18 11:45 Total Bilirubin 1.5 mg/dL (0.2-1) H 11/02/18 11:45 AST 54 U/L (15-37) H 11/02/18 11:45 ALT 35 U/L (13-61) 11/02/18 11:45 Alkaline Phosphatase 132 U/L (45-117) H 11/02/18 11:45 Total Protein 7.5 g/dl (6.4-8.2) 11/02/18 11:45 Albumin 3.8 g/dl (3.4-5.0) 11/02/18 11:45 RPR Titer Nonreactive (NONREACTIVE) 11/02/18 11:45 lab noted low K+ Assessment: 11/03/18 10:35 withdrawal sx low K+ Plan: continue detox repeat K+ K+ supplement
[2018-11-03] MEDS ORDERED: LIDOCAINE 5% TOPICAL PATCH TP SCH (10:45)
[2018-11-03] MEDS: POTASSIUM CHLORIDE ORAL LIQUID 20 MEQ/15 ML PO SCH ×2 (11:02→17:00)
[2018-11-03] MEDS ORDERED: LIDOCAINE PATCH REMOVAL MC SCH (22:00)
[2018-11-03] MEDS: THIAMINE HCL 100 MG TABLET (FP) PO SCH (22:25)
[2018-11-03] MEDS: MELATONIN 5 MG TABLETS PO PRN (22:25)
[2018-11-03] MEDS: METHOCARBAMOL 500 MG TABLET PO PRN (22:25)
[2018-11-04] MEDS: chlordiazePOXIDE HCL 25 MG CAPSULE PO SCH (06:14)
[2018-11-04 09:27] VITALS: BP 149/89; PULSE 83; TEMP 97.4
--- NOTE | 2018-11-04 12:31 | DS ---
[facility] Detox Discharge Summary Admission Date: 11/02/18 Discharge Date: 11/04/18 - History Present History: Alcohol Dependence Additional Comments: 63 years old male admitted on 11/02/18 for alcohol withdrawal stabilization insists to leave the detox unit that he wants to go to [facility] for rehab alert no acute distress denies suicidal ideation Pertinent Past History: bring in medication list and lab report to follow up appointment - Physical Exam Results Vital Signs: Vital Signs Temperature 97.4 F L 11/04/18 09:27 Pulse Rate 83 11/04/18 09:27 Respiratory Rate 18 11/04/18 09:27 Blood Pressure 149/89 11/04/18 09:27 O2 Sat by Pulse Oximetry (%) Pertinent Admission Physical Exam Findings: alcohol withdrawal sx Laboratory Last Values WBC 7.6 K/mm3 (4.0-10.0) 11/02/18 11:45 RBC 4.44 M/mm3 (4.00-5.60) 11/02/18 11:45 Hgb 11.5 GM/dL (11.7-16.9) L 11/02/18 11:45 Hct 36.9 % (35.4-49) D 11/02/18 11:45 MCV 83.2 fl (80-96) 11/02/18 11:45 MCH 25.8 pg (25.7-33.7) 11/02/18 11:45 MCHC 31.1 g/dl (32.0-35.9) L 11/02/18 11:45 RDW 20.9 % (11.9-15.9) H 11/02/18 11:45 Plt Count 245 K/MM3 (134-434) 11/02/18 11:45 MPV 7.8 fl (7.5-11.1) 11/02/18 11:45 Sodium 141 mmol/L (136-145) 11/02/18 11:45 Potassium 2.8 mmol/L (3.5-5.1) L* 11/04/18 07:45 Chloride 102 mmol/L (98-107) 11/02/18 11:45 Carbon Dioxide 31 mmol/L (21-32) 11/02/18 11:45 Anion Gap 8 MMOL/L (8-16) 11/02/18 11:45 BUN 7 mg/dL (7-18) 11/02/18 11:45 Creatinine 0.6 mg/dL (0.55-1.3) 11/02/18 11:45 Est GFR (CKD-EPI)AfAm 124.02 11/02/18 11:45 Est GFR (CKD-EPI)NonAf 107.00 11/02/18 11:45 Random Glucose 76 mg/dL (74-106) 11/02/18 11:45 Calcium 8.5 mg/dL (8.5-10.1) 11/02/18 11:45 Total Bilirubin 1.5 mg/dL (0.2-1) H 11/02/18 11:45 AST 54 U/L (15-37) H 11/02/18 11:45 ALT 35 U/L (13-61) 11/02/18 11:45 Alkaline Phosphatase 132 U/L (45-117) H 11/02/18 11:45 Total Protein 7.5 g/dl (6.4-8.2) 11/02/18 11:45 Albumin 3.8 g/dl (3.4-5.0) 11/02/18 11:45 RPR Titer Nonreactive (NONREACTIVE) 11/02/18 11:45 lab noted low K+ K+ supplement strong recommend the patient to bring in medication list and lab report to follow up appointment - Treatment Hospital Course: Detox Protocol Followed, Responded well Patient has Accepted a Rehab Referral to: [facility] - Medication Discharge Medications: Ambulatory Orders NK [No Known Home Medication] 10/18/18 - Diagnosis (1) Alcohol dependence with uncomplicated withdrawal Current Visit: Yes Status: Acute (2) Atrial fibrillation with RVR Current Visit: Yes Status: Chronic (3) GERD (gastroesophageal reflux disease) Current Visit: Yes Status: Chronic Qualifiers: Esophagitis presence: esophagitis presence not specified Qualified Code(s) : K21.9 - Gastro-esophageal reflux disease without esophagitis (4) HTN (hypertension) Current Visit: Yes Status: Chronic Qualifiers: Hypertension type: essential hypertension Qualified Code(s): I10 - Essential (primary) hypertension - AMA Did Patient Leave Against Medical Advice: Yes
[2018-11-04] MEDS ORDERED: chlordiazePOXIDE HCL 10 MG CAPSULE PO PRN (17:00)
[2018-11-04] MEDS ORDERED: chlordiazePOXIDE HCL 10 MG CAPSULE PO SCH (17:00)
[2018-11-05] MEDS ORDERED: chlordiazePOXIDE HCL 10 MG CAPSULE PO SCH (17:00)
== END 2018-11-04 13:15 | disposition left against medical advice (07) | DRG 770 ==
LOC: YASAS 10:08 → Y3N 11:51
PROVIDERS: ADMIT Surgery; ATTEND Surgery
PROC: HZ2ZZZZ Detoxification Services for Substance Abuse Treatment (ICD-10-PCS; principal; 2018-11-02)
DX: F10.230 Alcohol dependence with withdrawal, uncomplicated (principal); E87.6 Hypokalemia; I48.2 Chronic atrial fibrillation; I10 Essential (primary) hypertension; K21.9 Gastro-esophageal reflux disease without esophagitis; R55 Syncope and collapse; C45.9 Mesothelioma, unspecified; Z91.013 Allergy to seafood; Z59.0 Homelessness
CPT/HCPCS: 36415; 80053; 84132; 85027; 86593

== ENCOUNTER 2018-11-04 20:59 | Observation (INO) | payer OTHER | END 2018-11-07 11:45 | disposition left against medical advice (07) | LOC: JERBED 11-05 01:17 → JER 20:59 → J6S 11-05 13:40 ==

== ENCOUNTER 2018-11-07 22:13 | Emergency (ER) | payer OTHER | END 2018-11-08 05:42 | disposition home or self-care (01) | LOC: JER 11-08 05:42 ==

== ENCOUNTER → 2018-11-08 | Emergency (ER) | payer OTHER | LOC: JER 16:23 ==

== ENCOUNTER 2018-11-11 11:01 | Emergency (ER) | payer OTHER | END 2018-11-11 14:35 | disposition home or self-care (01) | LOC: JER 11:01 ==

== ENCOUNTER 2018-11-12 11:54 | Emergency (ER) | payer OTHER | END 2018-11-12 12:50 | disposition left against medical advice (07) | LOC: JER 11:54 ==

== ENCOUNTER 2018-11-17 19:34 | Emergency (ER) | payer OTHER | END 2018-11-18 12:11 | LOC: JER 19:34 → JERBED 11-18 05:54 → JER 11-18 12:11 ==

== ENCOUNTER 2018-11-18 11:50 | Inpatient (IN) | payer OTHER ==
[2018-11-18 13:38] VITALS: BMI 33.5
--- NOTE | 2018-11-18 13:50 | HP ---
CIWA Score Nausea/Vomitin Muscle Tremors: 4-Moderate,w/Arms Extend Anxiety: 4-Mod. Anxious/Guarded Agitation: 4-Moderately Restless Paroxysmal Sweats: No Perspiration Orientation: 1-Uncertain about Date Tacttile Disturbances: 2-Mild Itch/Numbness/Burn Auditory Disturbances: 0-None Visual Disturbances: 0-None Headache: 2-Mild CIWA-Ar Total Score: 20 - Admission Criteria OASAS Guidelines: Admission for Medically Managed Detox: Requires at least one of the followin. CIWA greater than 12 2. Seizures within the past 24 hours 3. Delirium tremens within the past 24 hours 4. Hallucinations within the past 24 hours 5. Acute intervention needed for co occurring medical disorder 6. Acute intervention needed for co occurring psychiatric disorder 7. Severe withdrawal that cannot be handled at a lower level of care (continued vomiting, continued diarrhea, abnormal vital signs) requiring intravenous medication and/or fluids 8. Admission ROS S - HPI Allergies/Adverse Reactions: Allergies Allergy/AdvReac Type Severity Reaction Status Date / Time Fish Containing Products Allergy Mild Swelling Verified 11/18/18 13:42 No Known Drug Allergies Allergy Verified 11/18/18 13:42 History of Present Illness: pt here requesting detox from etoh use , reports 1 pint/day , relapse after d/ c from this facility 11/04/18 states 1 week after , transferred from [facility] today , latest use 2 days ago , current symptoms as above , denies seizures , + blackouts, + tremors , starts drinking in the mornings 9 am " when the liquor store opens ". States went to the hospital 2/ fall . Pt is poor historian 2/ clinical condition " i am tired and i am sore right now " PMHx : htn tobacco : denies Exam Limitations: Clinical Condition - Ebola screening Have you traveled outside of the country in the last 21 days: No (N) Have you had contact with anyone from an Ebola affected area: No Do you have a fever: No - Review of Systems Constitutional: See HPI EENT: reports: See HPI Respiratory: reports: Other (reports dx of lung CA 5 years ago " there is nothing you can do for mesothelioma ") Cardiac: reports: No Symptoms Reported GI: reports: Diarrhea, Nausea : reports: No Symptoms Reported Musculoskeletal: reports: Joint Pain (r shoulder pain s/p fall , claims had xr / mri while in the hospital) Integumentary: reports: See HPI, Other (r forearm excoriation s./p trip and fall) Endocrine: reports: No Symptoms Reported Psychiatric: reports: Agitated, Anxious, Disorientated Patient History - Patient Medical History Hx Anemia: No Hx Asthma: No Hx Chronic Obstructive Pulmonary Disease (COPD): No Hx Cancer: Yes (mesothelioma lung cancer) Hx Cardiac Disorders: No Hx Congestive Heart Failure: No Hx Hypertension: Yes (non compliance) Hx Hypercholesterolemia: No Hx Pacemaker: No HX Cerebrovascular Accident: No Hx Seizures: No Hx Dementia: No Hx Diabetes: No Hx Gastrointestinal Disorders: No Hx Liver Disease: No Hx Genitourinary Disorders: No Hx Sexually Transmitted Disorders: No Hx Renal Disease (ESRD): No Hx Thyroid Disease: No Hx Human Immunodeficiency Virus (HIV): No (never been tested,did not want the test done) Hx Hepatitis C: No Hx Depression: No Hx Suicide Attempt: No Hx Bipolar Disorder: No Hx Schizophrenia: No - Patient Surgical History Past Surgical History: No Hx Neurologic Surgery: No Hx Cataract Extraction: No Hx Cardiac Surgery: No Hx Lung Surgery: No Hx Breast Surgery: No Hx Breast Biopsy: No Hx Abdominal Surgery: No Hx Appendectomy: No Hx Cholecystectomy: No Hx Genitourinary Surgery: No Hx Section: No Hx Orthopedic Surgery: No Hx Hysterectomy: No Anesthesia Reaction: No - PPD History Date: 02/10/18 Results: 0 mm - Smoking Cessation Smoking history: Never smoked Have you smoked in the past 12 months: No Aproximately how many cigarettes per day: 0 If you are a former smoker, when did you quit?: 0 Cigars Per Day: 0 Hx Chewing Tobacco Use: No - Substances abused Alcohol Substance route: Oral Frequency: Daily Amount used: VODKA- 1- 3PTS Age of first use: 16 Date of last use: 11/16/18 Family Disease History - Family Disease History Family Disease History: CA: Mother (), Brother (Colon CA), Other: Grandparent (ALCOHOLISM), Father (ALCOHOL,), Son () Admission Physical Exam BHS - Vital Signs Vital Signs: Vital Signs - 24 hr 11/18/18 13:36 Temperature 98.2 F Pulse Rate 83 Respiratory 18 Rate Blood Pressure 152/81 - Physical General Appearance: Yes: Disheveled, Severe Distress, Tremorous, Anxious HEENTM: Yes: EOMI, Normocephalic, Normal Voice, Hearing Decreased, Other (poor dentition , many missing teeth) Respiratory: Yes: Decreased Breath Sounds, No Respiratory Distress, No Accessory Muscle Use Neck: Yes: No masses,lesions,Nodules, Trachea in good position Cardiology: Yes: Regular Rhythm, Regular Rate, S1, S2 Abdominal: Yes: Non Tender, Soft, Protuberent Back: Yes: Normal Inspection Musculoskeletal: Yes: Joint Stiffness (r shoulder), Other (unsteady gait) Neurological: Yes: Alert, Motor Strength 5/5, Confused Integumentary: Yes: Pitting Edema (kareem LE r forearm superficial abrasion), Other (r forearm superficial excorisation near elbow) - Diagnostic (1) Alcohol dependence with uncomplicated withdrawal Current Visit: Yes Status: Acute Breathalyzer - Breathalyzer Breathalyzer: 0 Urine Drug Screen - Test Device Lot number: [id number] Expiration date: 07/15/20 - Control Is test valid?: Yes - Results Urine drug screen results: BZO-Benzodiazepines Inpatient Rehab Admission - Rehab Decision to Admit Inpatient rehab admission?: No
[2018-11-18] MEDS ORDERED: ACETAMINOPHEN 325 MG TABLET (FP) PO PRN ×2 (13:55)
[2018-11-18] MEDS ORDERED: DICYCLOMINE HCL 10 MG CAPSULE PO PRN (13:55)
[2018-11-18] MEDS ORDERED: guaiFENesin 200 MG/10 ML 10 ML UNIT-DOSE CUPS PO PRN (13:55)
[2018-11-18] MEDS ORDERED: MAGNESIUM HYDROX 2400MG/30ML ORAL SUSPENSION 30 ML CUP PO PRN (13:55)
[2018-11-18] MEDS ORDERED: chlordiazePOXIDE HCL 25 MG CAPSULE PO PRN (13:55)
[2018-11-18] MEDS ORDERED: IBUPROFEN 400 MG TABLET (FP) PO PRN (13:55)
[2018-11-18] MEDS ORDERED: chlordiazePOXIDE HCL 25 MG CAPSULE PO ONE (13:55)
[2018-11-18] MEDS ORDERED: ONDANSETRON *ODT* 4 MG TABLET SL PRN (13:55)
[2018-11-18] MEDS ORDERED: MENTHOL/PHENOL 1 EACH UD MM PRN (13:55)
[2018-11-18] MEDS ORDERED: BISMUTH SUBSALICYLATE 524 MG/30 ML UD PO PRN (13:55)
[2018-11-18] MEDS ORDERED: MAGNESIUM CITRATE 300 ML BOTTLE PO PRN (13:55)
[2018-11-18] MEDS ORDERED: MAG HYDROX/AL HYDROX/SIMETH 30 ML UNIT-DOSE CUP PO PRN (13:55)
[2018-11-18] MEDS ORDERED: METHOCARBAMOL 500 MG TABLET PO PRN (13:55)
[2018-11-18] MEDS ORDERED: MELATONIN 5 MG TABLETS PO PRN (13:55)
[2018-11-18] MEDS ORDERED: AMMONIUM LACTATE 12% LOTION 225 GM BOTTLE TP PRN (13:57)
[2018-11-18] MEDS: chlordiazePOXIDE HCL 25 MG CAPSULE PO SCH ×2 (18:02→22:56)
[2018-11-18] MEDS: BACITRACIN/POLYMYXIN B SULFATE 15 GM TUBE TP SCH ×2 (19:41→22:56)
[2018-11-18] MEDS: THIAMINE HCL 100 MG TABLET (FP) PO SCH (22:56)
[2018-11-19] MEDS: chlordiazePOXIDE HCL 25 MG CAPSULE PO SCH ×4 (06:13→22:19)
[2018-11-19] MEDS: PRENATAL VITAMINS W/ FOLIC ACID TABLET (FP) PO SCH (11:05)
[2018-11-19] MEDS: BACITRACIN/POLYMYXIN B SULFATE 15 GM TUBE TP SCH ×2 (11:05→22:18)
--- NOTE | 2018-11-19 11:12 | PN ---
[facility] CIWA - CIWA Score Nausea/Vomitin Muscle Tremors: 3 Anxiety: 2 Agitation: 2 Paroxysmal Sweats: 1-Minimal Palms Moist Orientation: 0-Oriented Tacttile Disturbances: 1-Very Mild Itch/Numbness Auditory Disturbances: 1-Very Mild Visual Disturbances: 0-None Headache: 2-Mild CIWA-Ar Total Score: 14 BHS Progress Note (SOAP) Subjective: alert,irritable,anxious,interrupted sleep,tremor Objective: 11/19/18 11:11 Vital Signs Temperature 97.9 F 11/19/18 09:31 Pulse Rate 78 11/19/18 09:31 Respiratory Rate 18 11/19/18 09:31 Blood Pressure 148/98 11/19/18 09:31 O2 Sat by Pulse Oximetry (%) 11/19/18 11:42 k is 3.2 on 11/17/18 Assessment: 11/19/18 11:42 withdrawal symptom Plan: continue detox,hypokalemia,k dur 20 meq po bid foe days,ensure plus 120 mls po bid,repeat cbc,cmp in am
[2018-11-19] MEDS: POTASSIUM CHLORIDE TABS 20 MEQ TABLET.ER (FP) PO SCH ×2 (12:23→22:18)
[2018-11-19] MEDS: THIAMINE HCL 100 MG TABLET (FP) PO SCH (22:19)
[2018-11-20] MEDS: chlordiazePOXIDE HCL 25 MG CAPSULE PO SCH ×2 (06:08→10:32)
--- NOTE | 2018-11-20 10:01 | PN ---
S CIWA - CIWA Score Nausea/Vomitin-No Nausea/No Vomiting Muscle Tremors: 2 Anxiety: 2 Agitation: 2 Paroxysmal Sweats: 3 Orientation: 0-Oriented Tacttile Disturbances: 0-None Auditory Disturbances: 0-None Visual Disturbances: 0-None Headache: 2-Mild CIWA-Ar Total Score: 11 BHS Progress Note (SOAP) Subjective: c/o sweats, headache, anxiety, mild shakes, and lower back pain. Objective: 11/20/18 10:00 Vital Signs 11/20/18 11/20/18 06:06 09:23 Temperature 97.9 F 97.9 F Pulse Rate 84 98 H Respiratory 20 20 Rate Blood Pressure 116/64 147/88 Labs pending. Assessment: 11/20/18 10:00 AOX3, in no respiratory distress, full rom, ambulating in the unit. Withdrawal symptoms. Plan: continue detox increase fluids.
[2018-11-20] MEDS: PRENATAL VITAMINS W/ FOLIC ACID TABLET (FP) PO SCH (10:31)
[2018-11-20] MEDS: BACITRACIN/POLYMYXIN B SULFATE 15 GM TUBE TP SCH ×2 (10:32→22:07)
[2018-11-20] MEDS: POTASSIUM CHLORIDE TABS 20 MEQ TABLET.ER (FP) PO SCH ×2 (10:32→22:07)
[2018-11-20 11:05] LABS: BILIRUBIN,TOTAL 0.9 mg/dL (0.2-1); BLOOD UREA NITROGEN 7.2 mg/dL (7-18); CALCIUM 8.4 mg/dL (8.5-10.1); CREATININE 0.6 mg/dL (0.55-1.3)
[2018-11-20 11:50] LABS: HEMATOCRIT 33.1 % (35.4-49); HEMOGLOBIN 10.5 GM/dL (11.7-16.9); MCH 25.5 pg (25.7-33.7); MCHC 31.6 g/dl (32.0-35.9); MEAN CELL VOLUME 80.7 fl (80-96); MEAN PLT VOLUME 8.1 fl (7.5-11.1); RBC 4.11 M/mm3 (4.00-5.60); RDW 20.3 % (11.9-15.9)
[2018-11-20 13:13] LABS: POTASSIUM 2.8 mmol/L (3.5-5.1)
[2018-11-20] MEDS ORDERED: POTASSIUM CHLORIDE TABS 20 MEQ TABLET.ER (FP) PO ONE ×3 (13:35→14:30)
--- NOTE | 2018-11-20 14:04 | PN ---
[facility] Progress Note Note: K+ level is 2.8, potassium chloride 20meq po x1dose now. Pt is already on 20meq po bid. As per RN, pt refused to take potassium. The practitioner spoke to pt about the importance of taking the potassium supplement but to no avail. Pt is instructed to report any feelings of chest pain, palpitations, muscle cramps/ pain, or fatigue/weakness. Pt verbalized understanding. Potassium level to be repeated 11/21/18.
[2018-11-20] MEDS ORDERED: chlordiazePOXIDE HCL 10 MG CAPSULE PO PRN (17:00)
[2018-11-20 17:03] LABS: PLATELET COUNT 216 K/MM3 (134-434)
[2018-11-20] MEDS: chlordiazePOXIDE HCL 10 MG CAPSULE PO SCH ×2 (17:13→22:07)
[2018-11-20] MEDS: hydrOXYzine PAMOATE 25 MG CAPSULE (FP) PO PRN (20:13)
[2018-11-20] MEDS: THIAMINE HCL 100 MG TABLET (FP) PO SCH (22:07)
[2018-11-21] MEDS: chlordiazePOXIDE HCL 10 MG CAPSULE PO SCH ×3 (06:08→16:58)
[2018-11-21] MEDS: POTASSIUM CHLORIDE TABS 20 MEQ TABLET.ER (FP) PO SCH (10:33)
[2018-11-21] MEDS: BACITRACIN/POLYMYXIN B SULFATE 15 GM TUBE TP SCH ×2 (10:33→21:44)
[2018-11-21] MEDS: PRENATAL VITAMINS W/ FOLIC ACID TABLET (FP) PO SCH (10:33)
--- NOTE | 2018-11-21 11:26 | PN ---
S CIWA - CIWA Score Nausea/Vomitin-Mild Nausea/No Vomiting Muscle Tremors: 2 Anxiety: 2 Agitation: 1-Slight > Activity Paroxysmal Sweats: 1-Minimal Palms Moist Orientation: 0-Oriented Tacttile Disturbances: 1-Very Mild Itch/Numbness Auditory Disturbances: 0-None Visual Disturbances: 0-None Headache: 1-Very Mild CIWA-Ar Total Score: 9 B[facility] Progress Note (SOAP) Subjective: alert denies chest pain no shortness of breath denies palpitation discuss low K+ encourage to take K+ supplement patient continue refusing K+ supplement recommend to ER for K+ IV supplement "they did that many time" "I do not want to go to ER" risks of low K+ and consequences of K+ provided Objective: 11/21/18 11:26 Vital Signs Temperature 97.2 F L 11/21/18 10:10 Pulse Rate 98 H 11/21/18 10:10 Respiratory Rate 18 11/21/18 10:10 Blood Pressure 153/105 H 11/21/18 10:10 O2 Sat by Pulse Oximetry (%) Laboratory Last Values WBC 6.0 K/mm3 (4.0-10.0) 11/20/18 08:00 RBC 4.11 M/mm3 (4.00-5.60) 11/20/18 08:00 Hgb 10.5 GM/dL (11.7-16.9) L 11/20/18 08:00 Hct 33.1 % (35.4-49) L 11/20/18 08:00 MCV 80.7 fl (80-96) 11/20/18 08:00 MCH 25.5 pg (25.7-33.7) L 11/20/18 08:00 MCHC 31.6 g/dl (32.0-35.9) L 11/20/18 08:00 RDW 20.3 % (11.9-15.9) H 11/20/18 08:00 Plt Count 216 K/MM3 (134-434) D 11/20/18 08:00 MPV 8.1 fl (7.5-11.1) 11/20/18 08:00 Sodium 141 mmol/L (136-145) 11/20/18 08:00 Potassium 2.8 mmol/L (3.5-5.1) L* 11/20/18 08:00 Chloride 100 mmol/L (98-107) 11/20/18 08:00 Carbon Dioxide 32 mmol/L (21-32) 11/20/18 08:00 Anion Gap 10 MMOL/L (8-16) 11/20/18 08:00 BUN 7.2 mg/dL (7-18) 11/20/18 08:00 Creatinine 0.6 mg/dL (0.55-1.3) 11/20/18 08:00 Est GFR (CKD-EPI)AfAm 124.02 11/20/18 08:00 Est GFR (CKD-EPI)NonAf 107.00 11/20/18 08:00 Random Glucose 83 mg/dL (74-106) 11/20/18 08:00 Calcium 8.4 mg/dL (8.5-10.1) L 11/20/18 08:00 Total Bilirubin 0.9 mg/dL (0.2-1) 11/20/18 08:00 AST 34 U/L (15-37) 11/20/18 08:00 ALT 24 U/L (13-61) 11/20/18 08:00 Alkaline Phosphatase 121 U/L (45-117) H 11/20/18 08:00 Total Protein 6.0 g/dl (6.4-8.2) L 11/20/18 08:00 Albumin 3.0 g/dl (3.4-5.0) L 11/20/18 08:00 lab noted Assessment: 11/21/18 11:28 alcohol withdrawal sx K+ 2.8 Plan: continue alcohol detox and encourage K+ supplement
[2018-11-21] MEDS: METOPROLOL TARTRATE 50 MG TABLET (FP) PO SCH ×2 (12:18→21:37)
[2018-11-21] MEDS: hydrOXYzine PAMOATE 25 MG CAPSULE (FP) PO PRN (21:37)
[2018-11-21] MEDS: THIAMINE HCL 100 MG TABLET (FP) PO SCH (21:37)
[2018-11-22 05:57] VITALS: BP 154/93; PULSE 70; TEMP 97.3
[2018-11-22] MEDS: chlordiazePOXIDE HCL 10 MG CAPSULE PO SCH (05:59)
--- NOTE | 2018-11-22 11:38 | DS ---
[facility] Detox Discharge Summary Admission Date: 11/18/18 Discharge Date: 11/22/18 - History Present History: Alcohol Dependence Additional Comments: 63 years old male admitted on 11/18/18 for alcohol withdrawal stabilization completed detox regimen aftercare [facility] outpatient alcohol rehab patient is alert no acute distress patient prefers to go to [facility] "they know me" "they take me in every time" Pertinent Past History: strong recommend bring in medication list and lab report to aftercare appointment - Physical Exam Results Vital Signs: Vital Signs Temperature 97.3 F L 11/22/18 05:57 Pulse Rate 70 11/22/18 05:57 Respiratory Rate 18 11/22/18 05:57 Blood Pressure 154/93 11/22/18 05:57 O2 Sat by Pulse Oximetry (%) Pertinent Admission Physical Exam Findings: alcohol withdrawal sx Laboratory Last Values WBC 6.0 K/mm3 (4.0-10.0) 11/20/18 08:00 RBC 4.11 M/mm3 (4.00-5.60) 11/20/18 08:00 Hgb 10.5 GM/dL (11.7-16.9) L 11/20/18 08:00 Hct 33.1 % (35.4-49) L 11/20/18 08:00 MCV 80.7 fl (80-96) 11/20/18 08:00 MCH 25.5 pg (25.7-33.7) L 11/20/18 08:00 MCHC 31.6 g/dl (32.0-35.9) L 11/20/18 08:00 RDW 20.3 % (11.9-15.9) H 11/20/18 08:00 Plt Count 216 K/MM3 (134-434) D 11/20/18 08:00 MPV 8.1 fl (7.5-11.1) 11/20/18 08:00 Sodium 141 mmol/L (136-145) 11/20/18 08:00 Potassium 2.8 mmol/L (3.5-5.1) L* 11/20/18 08:00 Chloride 100 mmol/L (98-107) 11/20/18 08:00 Carbon Dioxide 32 mmol/L (21-32) 11/20/18 08:00 Anion Gap 10 MMOL/L (8-16) 11/20/18 08:00 BUN 7.2 mg/dL (7-18) 11/20/18 08:00 Creatinine 0.6 mg/dL (0.55-1.3) 11/20/18 08:00 Est GFR (CKD-EPI)AfAm 124.02 11/20/18 08:00 Est GFR (CKD-EPI)NonAf 107.00 11/20/18 08:00 Random Glucose 83 mg/dL (74-106) 11/20/18 08:00 Calcium 8.4 mg/dL (8.5-10.1) L 11/20/18 08:00 Total Bilirubin 0.9 mg/dL (0.2-1) 11/20/18 08:00 AST 34 U/L (15-37) 11/20/18 08:00 ALT 24 U/L (13-61) 11/20/18 08:00 Alkaline Phosphatase 121 U/L (45-117) H 11/20/18 08:00 Total Protein 6.0 g/dl (6.4-8.2) L 11/20/18 08:00 Albumin 3.0 g/dl (3.4-5.0) L 11/20/18 08:00 lab noted K+ low refuses K+ supplement encourage fruit or nut picker K+ supplement from the pharmacy - Treatment Hospital Course: Detox Protocol Followed, Responded well Patient has Accepted a Rehab Referral to: [facility] - Medication Discharge Medications: Ambulatory Orders Metoprolol Tartrate [Lopressor -] 50 mg PO BID #60 tablet 11/22/18 Potassium Chloride [K-Dur -] 20 meq PO BID #60 tablet.er 11/22/18 - Diagnosis (1) Alcohol dependence with uncomplicated withdrawal Current Visit: Yes Status: Acute (2) Atrial fibrillation with RVR Current Visit: Yes Status: Chronic (3) GERD (gastroesophageal reflux disease) Current Visit: Yes Status: Chronic Qualifiers: Esophagitis presence: esophagitis presence not specified Qualified Code(s) : K21.9 - Gastro-esophageal reflux disease without esophagitis (4) HTN (hypertension) Current Visit: Yes Status: Chronic Qualifiers: Hypertension type: essential hypertension Qualified Code(s): I10 - Essential (primary) hypertension (5) Hypokalemia Current Visit: Yes Status: Chronic (6) Prolonged Q-T interval on ECG Current Visit: Yes Status: Chronic - AMA Did Patient Leave Against Medical Advice: Yes
== END 2018-11-22 08:51 | disposition left against medical advice (07) | DRG 770 ==
LOC: YASAS 11:50 → Y3N 16:30
PROVIDERS: ADMIT Surgery; ATTEND Surgery
PROC: HZ2ZZZZ Detoxification Services for Substance Abuse Treatment (ICD-10-PCS; principal; 2018-11-18)
DX: F10.230 Alcohol dependence with withdrawal, uncomplicated (principal); I48.91 Unspecified atrial fibrillation; I10 Essential (primary) hypertension; K21.9 Gastro-esophageal reflux disease without esophagitis; E87.6 Hypokalemia; R94.31 Abnormal electrocardiogram [ECG] [EKG]; Z59.0 Homelessness
CPT/HCPCS: 36415; 71045-TC-FY; 80053; 80307; 82550; 82553; 83735; 83880; 84484; 85025; 85027; 93005; 93010; 93970-TC; 99283-25; J7030

== ENCOUNTER 2018-11-22 15:16 | Emergency (ER) | payer OTHER | END 2018-11-22 15:45 | disposition left against medical advice (07) | LOC: JER 15:16 ==

== ENCOUNTER → 2018-11-22 | Emergency (ER) | payer OTHER ==
--- NOTE | 2018-11-22 13:34 | PDOC ---
Rapid Medical Evaluation Chief Complaint: Injury Time Seen by Provider: 11/22/18 13:30 Medical Evaluation: Allergies Allergy/AdvReac Type Severity Reaction Status Date / Time Fish Containing Products Allergy Mild Swelling Verified 11/18/18 13:42 No Known Drug Allergies Allergy Verified 11/18/18 13:42 11/22/18 13:30 This patient had brief in-person examination cc:intoxication no reports of fall or trauma PE: NAD intoxicated with drunken speech unlabored breathing alert to place and name Orders: `observe This patient will proceed to ed for further evaluation Discharge Disposition - Diagnosis Acute alcohol intoxication - Referrals - Patient Instructions - Post Discharge Activity
[2018-11-22 13:36] VITALS: BP 128/62; PULSE 81; TEMP 98; BMI 28.7
== END | disposition left against medical advice (07) ==
LOC: JER 13:27
DX: F10.220 Alcohol dependence with intoxication, uncomplicated (principal)
CPT/HCPCS: 99281-25

== ENCOUNTER 2018-11-26 12:12 | Emergency (ER) | payer OTHER | END 2018-11-26 15:38 | disposition home or self-care (01) | LOC: JER 12:12 ==

== ENCOUNTER 2018-11-26 19:47 | Emergency (ER) | payer OTHER | END 2018-11-27 06:59 | LOC: JER 11-27 06:59 ==

== ENCOUNTER 2018-12-03 19:16 | Emergency (ER) | payer OTHER ==
[2018-12-03 19:23] VITALS: TEMP 98.2; BMI 38.0
--- NOTE | 2018-12-03 19:23 | PDOC ---
Rapid Medical Evaluation Time Seen by Provider: 12/03/18 19:18 Medical Evaluation: Allergies Allergy/AdvReac Type Severity Reaction Status Date / Time Fish Containing Products Allergy Mild Swelling Verified 11/26/18 19:52 No Known Drug Allergies Allergy Verified 11/26/18 19:52 12/03/18 19:20 I have performed a brief in-person evaluation of this patient. The patient presents with a chief complaint of:intoxication Pertinent physical exam findings:Stable I have ordered the following:nothing The patient will proceed to the ED for further evaluation. 12/03/18 19:28 Discharge Disposition - Diagnosis Intoxication - Referrals - Patient Instructions - Post Discharge Activity
--- NOTE | 2018-12-04 03:36 | PDOC ---
History of Present Illness - General Chief Complaint: Alcohol intoxication Stated Complaint: DETOX Time Seen by Provider: 12/03/18 19:18 History Source: Patient Exam Limitations: Intoxication Past History - Past Medical History Allergies/Adverse Reactions: Allergies Allergy/AdvReac Type Severity Reaction Status Date / Time Fish Containing Products Allergy Mild Swelling Verified 12/03/18 19:26 No Known Drug Allergies Allergy Verified 12/03/18 19:26 Home Medications: Ambulatory Orders Metoprolol Tartrate [Lopressor -] 50 mg PO BID #60 tablet 11/22/18 Potassium Chloride [K-Dur -] 20 meq PO BID #60 tablet.er 11/22/18 Anemia: No Asthma: No Cancer: Yes (mesothelioma lung cancer) Cardiac Disorders: No CVA: No COPD: No CHF: No DVT: No Dementia: No Diabetes: No Dialysis: No GI Disorders: No Disorders: No HTN: Yes (non compliance) Hypercholesterolemia: No Kidney Stones: No Liver Disease: No Psychiatric Problems: Yes (etoh) Seizures: No Thyroid Disease: No Lung CA: No - Surgical History Abdominal Surgery: No Appendectomy: No Cardiac Surgery: No Cholecystectomy: No Lung Surgery: No Neurologic Surgery: No Orthopedic Surgery: No - Family Disease History Family Disease History: CA: Mother - Reproductive History Testicular Surgery: No - Immunization History TDAP Vaccination: Yes Immunization Up to Date: Yes - Suicide/Smoking/Psychosocial Hx Smoking Status: No Smoking History: Unknown if ever smoked Have you smoked in the past 12 months: No Number of Cigarettes Smoked Daily: 0 If you are a former smoker, when did you quit?: 0 Cigars Per Day: 0 'Breaking Loose' booklet given: 09/22/17 Hx Alcohol Use: Yes (last drink an hour ago.) Drug/Substance Use Hx: No Substance Use Type: Alcohol Hx Substance Use Treatment: Yes (just got out of detox yesterday) *Physical Exam - Vital Signs Last Vital Signs Temp Pulse Resp BP Pulse Ox 98.2 F 83 18 146/81 97 12/03/18 19:19 12/03/18 19:19 12/03/18 19:19 12/03/18 19:19 12/03/18 19:19 - Physical Exam General Appearance: Yes: Alcohol on Breath Respiratory/Chest: positive: Lungs Clear, Normal Breath Sounds. negative: Respiratory Distress Cardiovascular: positive: Regular Rhythm, Regular Rate, S1, S2. negative: Murmur Gastrointestinal/Abdominal: positive: Normal Bowel Sounds, Soft. negative: Tender, Distended, Guarding, Rebound Extremity: positive: Other (no trauma noted) Medical Decision Making - Medical Decision Making 63 y/o M hx of HTN, mesothelioma, alcohol abuse presents for alcohol intoxication. Patient with multiple visits to hospital for same Alcohol intox - no evidence of trauma Will discharge once clinically sober 12/04/18 03:35 *DC/Admit/Observation/Transfer Diagnosis at time of Disposition: Intoxication - Discharge Dispostion Disposition: HOME Condition at time of disposition: Stable Decision to Admit order: No - Referrals - Patient Instructions Printed Discharge Instructions: DI for Alcohol Abuse - Post Discharge Activity
[2018-12-04 06:38] VITALS: BP 177/106; PULSE 101
== END 2018-12-04 06:49 | disposition home or self-care (01) ==
LOC: JER 19:16
DX: F10.220 Alcohol dependence with intoxication, uncomplicated (principal); I10 Essential (primary) hypertension; C45.9 Mesothelioma, unspecified; Z91.14 Patient's other noncompliance with medication regimen; Z59.0 Homelessness
CPT/HCPCS: 99283-25

== ENCOUNTER 2018-12-10 13:04 | Emergency (ER) | payer OTHER ==
[2018-12-10 13:21] VITALS: BP 108/63; PULSE 84; TEMP 98.5; BMI 39.5
--- NOTE | 2018-12-10 13:21 | PDOC ---
Rapid Medical Evaluation Chief Complaint: Alcohol intoxication Time Seen by Provider: 12/10/18 13:15 Medical Evaluation: Allergies Allergy/AdvReac Type Severity Reaction Status Date / Time Fish Containing Products Allergy Mild Swelling Verified 12/03/18 19:26 No Known Drug Allergies Allergy Verified 12/03/18 19:26 12/10/18 13:19 I have performed a brief in-person evaluation of this patient. The patient presents with a chief complaint of: alcohol use Pertinent physical exam findings:stable and in NAD, non-focal I have ordered the following: n/a The patient will proceed to the ED for further evaluation.
--- NOTE | 2018-12-10 14:44 | PDOC ---
History of Present Illness - General Chief Complaint: Alcohol intoxication Stated Complaint: INTOXICATION Time Seen by Provider: 12/10/18 13:15 - History of Present Illness Initial Comments: 12/10/18 16:01 The patient is a 63 year old male with a history of HTN, Mesothelioma, ETOH abuse who presents for evaluation of intoxication. The patient reports that he drank 1 pint of vodka today and is intoxicated. He otherwise denies any other complaints and otherwise denies headache, fall, head trauma, chest pain, SOB, nausea, vomiting, abdominal pain, or changes with urination or bowel movements. Past History - Past Medical History Allergies/Adverse Reactions: Allergies Allergy/AdvReac Type Severity Reaction Status Date / Time Fish Containing Products Allergy Mild Swelling Verified 12/03/18 19:26 No Known Drug Allergies Allergy Verified 12/03/18 19:26 Home Medications: Ambulatory Orders Metoprolol Tartrate [Lopressor -] 50 mg PO BID #60 tablet 11/22/18 Potassium Chloride [K-Dur -] 20 meq PO BID #60 tablet.er 11/22/18 Anemia: No Asthma: No Cancer: Yes (mesothelioma lung cancer) Cardiac Disorders: No CVA: No COPD: No CHF: No DVT: No Dementia: No Diabetes: No Dialysis: No GI Disorders: No Disorders: No HTN: Yes (non compliance) Hypercholesterolemia: No Kidney Stones: No Liver Disease: No Psychiatric Problems: Yes (etoh) Seizures: No Thyroid Disease: No Lung CA: No - Surgical History Abdominal Surgery: No Appendectomy: No Cardiac Surgery: No Cholecystectomy: No Lung Surgery: No Neurologic Surgery: No Orthopedic Surgery: No - Family Disease History Family Disease History: CA: Mother - Reproductive History Testicular Surgery: No - Immunization History TDAP Vaccination: Yes Immunization Up to Date: Yes - Suicide/Smoking/Psychosocial Hx Smoking Status: No Smoking History: Never smoked Have you smoked in the past 12 months: No Number of Cigarettes Smoked Daily: 0 If you are a former smoker, when did you quit?: 0 Cigars Per Day: 0 Information on smoking cessation initiated: No 'Breaking Loose' booklet given: 09/22/17 Hx Alcohol Use: No Drug/Substance Use Hx: No Substance Use Type: Alcohol Hx Substance Use Treatment: Yes (just got out of detox yesterday) Review of Systems - Review of Systems Comments:: 12/10/18 16:03 Constitutional: Intoxication. No fevers, chills, fatigue, malaise HEENT: No Rhinorrhea, nasal congestion, visual changes Cardiovascular: No chest pain, syncope, palpitations, lightheadedness Respiratory: No Cough, SOB, Hemoptysis, Gastrointestinal: No Abdominal pain, Nausea, Vomiting, Constipation, Diarrhea, Melena Genitourinary: No Dysuria, Frequency, Urgency, Hesitancy, Hematuria, Flank pain Musculoskeletal: No Myalgia, arthralgia Skin: No rashes, itching, bruising, pallor Neurologic: No Headache, Dizziness, Numbness, Weakness, or Tingling Psychiatric: No Hallucinations. No SI or HI *Physical Exam - Vital Signs Last Vital Signs Temp Pulse Resp BP Pulse Ox 98.5 F 84 16 108/63 91 L 12/10/18 13:17 12/10/18 13:17 12/10/18 13:17 12/10/18 13:17 12/10/18 13:17 - Physical Exam Comments: 12/10/18 16:03 General Appearance: Nourished. Alcohol on Breath. No Apparent Distress HEENT: EOMI, DOUGLAS. No Pharyngeal Erythema, Tonsillar Exudate, Tonsillar Erythema Neck: No Cervical Lymphadenopathy Respiratory/Chest: Lungs Clear, Normal Breath Sounds. No Crackles, Rales, Rhonchi, Wheezing Cardiovascular: Regular Rhythm, Regular Rate. No Murmur, Gallops, Rubs Gastrointestinal/Abdominal: Normal Bowel Sounds, Soft. No Guarding, Rebound, Tenderness Musculoskeletal: No CVA Tenderness Extremity: Normal Capillary Refill Integumentary: Normal Color, Dry, Warm Neurologic: Fully Oriented, Alert, Normal Mood/Affect, Normal Response, Medical Decision Making - Medical Decision Making 12/10/18 16:03 The patient is a 63 year old male with a history of HTN, Mesothelioma, ETOH abuse who presents for evaluation of intoxication. The patient appears clinically well on exam here in the ED and denies any complaints currently. The patient is well known to the ED and appears at his baseline. Given his history and physical exam, we will monitor for sobriety here in the ED. 12/10/18 17:16 Patient eloped prior to re-evaluation. He ambulated out to the ED. *DC/Admit/Observation/Transfer Diagnosis at time of Disposition: Alcohol intoxication Qualifiers: Complication of substance-induced condition: with unspecified complication Qualified Code(s): F10.929 - Alcohol use, unspecified with intoxication, unspecified - Discharge Dispostion Disposition: ELOPED Condition at time of disposition: Stable - Referrals - Patient Instructions Printed Discharge Instructions: DI for Alcohol Abuse Additional Instructions: 1) Please follow-up with your primary care doctor in the next 2-3 days. Please call tomorrow to schedule a follow up appointment. If you cannot follow up with your doctor within 1 week please return to the Emergency Department for any urgent issues. 2) If you have any worsening of symptoms or any other concerns please return to the ER immediately. Return if worsening symptoms including fevers, headache, vomiting, visual or hearing disturbances, abdominal pain, chest pain, shortness of breath, syncope, dehydration, inability to take things by mouth/vomiting, altered mental status, or worsening concerning symptoms. 3) Please continue taking your home medications as directed. Side effects may include upset stomach, abdominal pain, vomiting, or diarrhea. Do not drink alcohol with your medications. - Post Discharge Activity
--- NOTE | 2018-12-10 16:14 | PDOC ---
Documentation entered by Stacey Cuevas SCRIBE, acting as scribe for Fabiana Woodard MD. Fabiana Woodard MD: This documentation has been prepared by the Faith pereira Mackenzie, SCRIBE, under my direction and personally reviewed by me in its entirety. I confirm that the documentation accurately reflects all work , treatment, procedures, and medical decision making performed by me. Attending Attestation - Resident Resident Name: Smith Dunbar - ED Attending Attestation I have performed the following: I have examined & evaluated the patient, The case was reviewed & discussed with the resident, I agree w/resident's findings & plan, Exceptions are as noted - HPI HPI: 63 yo M hsitory HTN, mesothelioma, EtOH abuse, well-known to this ED presents with intoxication. He states he drank vodka today. Denies any trauma. No complaints at present. - Physicial Exam PE: GENERAL: Awake, alert, and fully oriented. +AOB HEAD: No signs of trauma EYES: PERRLA, EOMI, sclera anicteric, conjunctiva clear ENT: Auricles normal inspection, hearing grossly normal, nares patent, oropharynx clear without exudates. Moist mucosa NECK: Normal ROM, supple, no lymphadenopathy, JVD, or masses LUNGS: Breath sounds equal, clear to auscultation bilaterally. No wheezes, and no crackles HEART: Regular rate and rhythm, normal S1 and S2, no murmurs, rubs or gallops ABDOMEN: Soft, nontender, normoactive bowel sounds. No guarding, no rebound. No masses EXTREMITIES: Normal range of motion, no edema. No clubbing or cyanosis. No cords, erythema, or tenderness NEUROLOGICAL: Cranial nerves II through XII grossly intact. Slurred speech. Motor and sensation intact SKIN: Warm, Dry, normal turgor, no rashes or lesions noted. - Medical Decision Making No signs of trauma. Will monitor to clinical sobriety.
== END 2018-12-10 17:15 | disposition left against medical advice (07) ==
LOC: JER 13:04
DX: F10.220 Alcohol dependence with intoxication, uncomplicated (principal); I10 Essential (primary) hypertension; C45.9 Mesothelioma, unspecified; Z59.0 Homelessness
CPT/HCPCS: 99281-25

== ENCOUNTER 2018-12-14 12:02 | Emergency (ER) | payer OTHER ==
[2018-12-14 12:47] VITALS: BMI 33.0
[2018-12-14] MEDS ORDERED: SODIUM CHLORIDE 1,000 ML IV STA (14:51)
--- NOTE | 2018-12-14 15:11 | PDOC ---
History of Present Illness - History of Present Illness Initial Comments: 12/14/18 15:11 63 yo M with h/o recurrent ED encounters, Etoh dependence, HTN, HLD, DM who p/w Etoh intoxication. Patient found in street sleep, intoxicated, agitated. Patient endorses multiple alcoholic beverages today, of unknown quantity. Denies complaints. Reports feeling "hungy." Mary fall, LOC, trauma. Patient denies GARCIA, vision change, palpitations, cough, wheezing, orthopena, PND , leg swelling/pain, N/V, F,C, CP, SOB, urinary complaints, hematuria, BPR, abdominal pain, diarrhea, constipation, lightheadedness, weakness, sensory changes. PMHx: as noted above ROS: as noted SHx: Denies Etoh, IVDA, tobacco use Allergies: NKDA <Milind Mosher - Last Filed: 12/14/18 17:48> <Sue Casanova - Last Filed: 12/15/18 02:52> - General Chief Complaint: Alcohol intoxication Stated Complaint: BACK PAIN INTOX Time Seen by Provider: 12/14/18 13:55 Past History - Past Medical History Anemia: No Asthma: No Cancer: Yes (mesothelioma lung cancer) Cardiac Disorders: No CVA: No COPD: No CHF: No DVT: No Dementia: No Diabetes: No Dialysis: No GI Disorders: No Disorders: No HTN: Yes (non compliance) Hypercholesterolemia: No Kidney Stones: No Liver Disease: No Psychiatric Problems: Yes (etoh) Seizures: No Thyroid Disease: No Lung CA: No - Surgical History Abdominal Surgery: No Appendectomy: No Cardiac Surgery: No Cholecystectomy: No Lung Surgery: No Neurologic Surgery: No Orthopedic Surgery: No - Family Disease History Family Disease History: CA: Mother - Reproductive History Testicular Surgery: No - Immunization History TDAP Vaccination: Yes Immunization Up to Date: Yes - Suicide/Smoking/Psychosocial Hx Smoking Status: No Smoking History: Never smoked Have you smoked in the past 12 months: No Number of Cigarettes Smoked Daily: 0 If you are a former smoker, when did you quit?: 0 Cigars Per Day: 0 Information on smoking cessation initiated: No 'Breaking Loose' booklet given: 09/22/17 Hx Alcohol Use: No Drug/Substance Use Hx: No Substance Use Type: Alcohol Hx Substance Use Treatment: Yes (just got out of detox yesterday) <Milind Mosher - Last Filed: 12/14/18 17:48> <EdilbertoSue Charito - Last Filed: 12/15/18 02:52> - Past Medical History Allergies/Adverse Reactions: Allergies Allergy/AdvReac Type Severity Reaction Status Date / Time Fish Containing Products Allergy Mild Swelling Verified 12/14/18 12:32 No Known Drug Allergies Allergy Verified 12/14/18 12:32 Home Medications: Ambulatory Orders Metoprolol Tartrate [Lopressor -] 50 mg PO BID #60 tablet 11/22/18 Potassium Chloride [K-Dur -] 20 meq PO BID #60 tablet.er 11/22/18 Review of Systems - Review of Systems Comments:: 12/14/18 15:11 GENERAL/CONSTITUTIONAL: No fever or chills. No weakness. HEAD, EYES, EARS, NOSE AND THROAT: No change in vision. No ear pain or discharge. No sore throat. CARDIOVASCULAR: No chest pain or shortness of breath RESPIRATORY: No cough, wheezing, or hemoptysis. GASTROINTESTINAL: No nausea, vomiting, diarrhea or constipation. GENITOURINARY: No dysuria, frequency, or change in urination. MUSCULOSKELETAL: No joint or muscle swelling or pain. No neck or back pain. SKIN: No rash NEUROLOGIC: No headache, vertigo, loss of consciousness, or change in strength/ sensation. ENDOCRINE: No increased thirst. No abnormal weight change HEMATOLOGIC/LYMPHATIC: No anemia, easy bleeding, or history of blood clots. ALLERGIC/IMMUNOLOGIC: No hives or skin allergy. <Milind Mosher - Last Filed: 12/14/18 17:48> *Physical Exam - Vital Signs Last Vital Signs Temp Pulse Resp BP Pulse Ox 97.4 F L 90 16 91/48 L 89 L 12/14/18 12:43 12/14/18 12:43 12/14/18 12:43 12/14/18 12:43 12/14/18 12:43 - Physical Exam Comments: 12/14/18 15:11 GENERAL: Awake, alert, and fully oriented, in no acute distress HEAD: No signs of trauma, normocephalic, atraumatic EYES: PERRLA, EOMI, sclera anicteric, conjunctiva clear ENT: Auricles normal inspection, hearing grossly normal, nares patent, oropharynx clear without exudates. Moist mucosa NECK: Normal ROM, supple, no lymphadenopathy, JVD, or masses LUNGS: No distress, speaks full sentences, clear to auscultation bilaterally HEART: Regular rate and rhythm, normal S1 and S2, no murmurs, rubs or gallops, peripheral pulses normal and equal bilaterally. ABDOMEN: Soft, nontender, normoactive bowel sounds. No guarding, no rebound. No masses EXTREMITIES : Normal inspection, Normal range of motion, no edema. No clubbing or cyanosis. NEUROLOGICAL: Cranial nerves II through XII grossly intact. Normal speech, normal gait, no focal sensorimotor deficits SKIN: Warm, Dry, normal turgor, no rashes or lesions noted <Milind Mosher - Last Filed: 12/14/18 17:48> - Vital Signs Last Vital Signs Temp Pulse Resp BP Pulse Ox 98.3 F 93 H 20 167/90 97 12/14/18 18:33 12/14/18 23:45 12/14/18 23:45 12/14/18 23:45 12/14/18 23:45 <Sue Casanova - Last Filed: 12/15/18 02:52> ED Treatment Course - Medications Given in the ED: ED Medications Discontinued Medications Generic Name Dose Route Start Last Admin Trade Name Freq PRN Reason Stop Dose Admin Sodium Chloride 1,000 mls @ 1,000 mls/hr 12/14/18 14:51 12/14/18 19:30 Normal Saline - IV 12/14/18 15:50 Not Given ASDIR STA <Sue Casanova - Last Filed: 12/15/18 02:52> Medical Decision Making - Medical Decision Making 12/14/18 17:52 63 yo M with h/o recurrent ED encounters, Etoh dependence, HTN, HLD, DM who p/w Etoh intoxication. Pt. A&Ox3. No evidence of closed head injury. No evidence Etoh withdrawal. Patient resting comfortably. Will reassess. Ed Course: Patient resting comfortably with absent complaints. <Milind Mosher - Last Filed: 12/14/18 17:48> *DC/Admit/Observation/Transfer <Milind Mosher - Last Filed: 12/14/18 17:48> <Sue Casanova - Last Filed: 12/15/18 02:52> Diagnosis at time of Disposition: Alcohol intoxication Qualifiers: Complication of substance-induced condition: uncomplicated Qualified Code(s): F10.920 - Alcohol use, unspecified with intoxication, uncomplicated - Discharge Dispostion Condition at time of disposition: Improved - Patient Instructions Printed Discharge Instructions: DI for Alcohol Abuse
--- NOTE | 2018-12-14 22:45 | PDOC ---
Documentation entered by Nitish Bonilla SCRIBE, acting as scribe for Sue Casanova MD. Sue Casanova MD: This documentation has been prepared by the Chad pereira Joel, SCRIBE, under my direction and personally reviewed by me in its entirety. I confirm that the documentation accurately reflects all work, treatment, procedures, and medical decision making performed by me. Attending Attestation - Resident Resident Name: Ashish Mosherson - ED Attending Attestation I have performed the following: I have examined & evaluated the patient, The case was reviewed & discussed with the resident, I agree w/resident's findings & plan, Exceptions are as noted - HPI HPI: 12/14/18 18:25 The patient is a 63 year old male with a significant PMH of HTN, mesothelioma, alcohol abuse who presents to the emergency department for evaluation of alcohol intoxication. The patient denies falling or LOC. He denies weakness and numbness. The patient denies chest pain, shortness of breath, headache and dizziness. Denies fever, chills, nausea, vomit, diarrhea and constipation. Denies dysuria, frequency, urgency and hematuria. Allergies: NKA Past surgical history: None reported. Social history: Alcohol abuse. No reported cigarette or drug use. 12/14/18 18:35 - Physicial Exam PE: 12/14/18 22:34 disheveled 63 yo male sleeping on gurney but does wake up to request blanket head no scalp lacerations eyes eomi neck no tenderness lungs no wheezing cvs [id number] abd protuberant ext chronic edema skin warm and dry neuro sl somnolent,easily awoken ,moving all extremities 12/14/18 22:42 - Medical Decision Making 12/14/18 22:44 pt will be discharged when it is safe
[2018-12-15 03:08] VITALS: BP 140/84; PULSE 84; TEMP 98.5
[2018-12-15] MEDS ORDERED: chlordiazePOXIDE HCL 25 MG CAPSULE PO ONE (06:21)
[2018-12-15] MEDS ORDERED: chlordiazePOXIDE HCL 25 MG CAPSULE ONE (06:22)
--- NOTE | 2018-12-15 06:22 | PDOC ---
*Physical Exam - Vital Signs Last Vital Signs Temp Pulse Resp BP Pulse Ox 98.5 F 84 18 140/84 89 L 12/15/18 01:30 12/15/18 01:30 12/15/18 01:30 12/15/18 01:30 12/15/18 01:30 ED Treatment Course - Medications Given in the ED: ED Medications Discontinued Medications Generic Name Dose Route Start Last Admin Trade Name Freq PRN Reason Stop Dose Admin Sodium Chloride 1,000 mls @ 1,000 mls/hr 12/14/18 14:51 12/14/18 19:30 Normal Saline - IV 12/14/18 15:50 Not Given ASDIR STA Medical Decision Making - Medical Decision Making 12/15/18 06:20 Patient now awake alert and ambulating without difficulty Patient is ready to go home, he is slightly shaky and will be given Librium 25 mg prior to discharge Plan for security to escort to detox at 7 AM 12/15/18 06:22 *DC/Admit/Observation/Transfer Diagnosis at time of Disposition: Alcohol intoxication Qualifiers: Complication of substance-induced condition: uncomplicated Qualified Code(s): F10.920 - Alcohol use, unspecified with intoxication, uncomplicated - Discharge Dispostion Condition at time of disposition: Improved - Referrals - Patient Instructions Printed Discharge Instructions: DI for Alcohol Abuse - Post Discharge Activity
== END 2018-12-15 07:38 | disposition home or self-care (01) ==
LOC: JER 12:02
DX: F10.220 Alcohol dependence with intoxication, uncomplicated (principal); I10 Essential (primary) hypertension; C45.9 Mesothelioma, unspecified; M54.5 Low back pain; G89.29 Other chronic pain; Z59.0 Homelessness
CPT/HCPCS: 99282-25

== ENCOUNTER 2018-12-17 20:16 | Emergency (ER) | payer OTHER ==
[2018-12-17 20:35] VITALS: BP 155/92; PULSE 80; TEMP 97.5; BMI 26.5
--- NOTE | 2018-12-18 05:23 | PDOC ---
History of Present Illness - General Chief Complaint: Alcohol intoxication Stated Complaint: INTOX - History of Present Illness Initial Comments: 12/18/18 05:23 Mr. De Leon is a 63 yo male w/ pmh of HTN, HLD, DM, alcohol abuse, mesothelioma who presents for evaluation of intoxication. Patient found by EMS after ingesting unknown quantity of alcohol. Currently requesting to be allowed to sleep. The patient denies chest pain, shortness of breath, headache and dizziness. Denies fever, chills, nausea, vomit, diarrhea and constipation. Denies dysuria, frequency, urgency and hematuria. Past History - Past Medical History Allergies/Adverse Reactions: Allergies Allergy/AdvReac Type Severity Reaction Status Date / Time Fish Containing Products Allergy Mild Swelling Verified 12/17/18 20:30 No Known Drug Allergies Allergy Verified 12/17/18 20:30 Home Medications: Ambulatory Orders Metoprolol Tartrate [Lopressor -] 50 mg PO BID #60 tablet 11/22/18 Potassium Chloride [K-Dur -] 20 meq PO BID #60 tablet.er 11/22/18 Anemia: No Asthma: No Cancer: Yes (mesothelioma lung cancer) Cardiac Disorders: No CVA: No COPD: No CHF: No DVT: No Dementia: No Diabetes: No Dialysis: No GI Disorders: No Disorders: No HTN: Yes (non compliance) Hypercholesterolemia: No Kidney Stones: No Liver Disease: No Psychiatric Problems: Yes (etoh) Seizures: No Thyroid Disease: No Lung CA: No - Surgical History Abdominal Surgery: No Appendectomy: No Cardiac Surgery: No Cholecystectomy: No Lung Surgery: No Neurologic Surgery: No Orthopedic Surgery: No - Family Disease History Family Disease History: CA: Mother - Reproductive History Testicular Surgery: No - Immunization History TDAP Vaccination: Yes Immunization Up to Date: Yes - Suicide/Smoking/Psychosocial Hx Smoking Status: No Smoking History: Never smoked Have you smoked in the past 12 months: No Number of Cigarettes Smoked Daily: 0 If you are a former smoker, when did you quit?: 0 Cigars Per Day: 0 Information on smoking cessation initiated: No 'Breaking Loose' booklet given: 09/22/17 Hx Alcohol Use: No Drug/Substance Use Hx: No Substance Use Type: Alcohol Hx Substance Use Treatment: Yes (just got out of detox yesterday) Review of Systems - Review of Systems Comments:: 12/18/18 05:50 Unable to obtain further. *Physical Exam - Vital Signs Last Vital Signs Temp Pulse Resp BP Pulse Ox 97.5 F L 80 18 155/92 100 12/17/18 20:26 12/17/18 20:26 12/17/18 20:26 12/17/18 20:26 12/17/18 20:26 - Physical Exam Comments: 12/18/18 05:50 GENERAL: Patient sleeping however easily arousable. Fully oriented, in no acute distress HEAD: No signs of trauma, normocephalic, atraumatic EYES: PERRLA, EOMI, sclera anicteric, conjunctiva clear ENT: Auricles normal inspection, hearing grossly normal, nares patent, oropharynx clear without exudates. Moist mucosa NECK: Normal ROM, supple, no lymphadenopathy, JVD, or masses LUNGS: No distress, speaks full sentences, clear to auscultation bilaterally HEART: Regular rate and rhythm, normal S1 and S2, no murmurs, rubs or gallops, peripheral pulses normal and equal bilaterally. ABDOMEN: Soft, nontender, normoactive bowel sounds. No guarding, no rebound. No masses EXTREMITIES: Normal inspection, Normal range of motion, no edema. No clubbing or cyanosis. NEUROLOGICAL: Cranial nerves II through XII grossly intact. Normal speech, normal gait, no focal sensorimotor deficits SKIN: Warm, Dry, normal turgor, no rashes or lesions noted. ED Treatment Course - LABORATORY CBC & Chemistry Diagram: 12/18/18 05:50 12/18/18 05:50 Medical Decision Making - Medical Decision Making 12/18/18 05:50 Mr. De Leon is a 63 yo male w/ pmh as described who presents for evaluation of intoxication. Patient sleeping restfully; easily arousable and oriented x3. Patient will be evaluated for electrolye or infectious abnormalities and will be observed for clinical sobriety. 12/18/18 06:38 Patient noted to be hypokalemic. Oral KDUR given. Patient signed out to Dr. Cordon for further care. Laboratory Results - last 24 hr 12/18/18 12/18/18 05:50 05:50 WBC 3.4 L RBC 3.99 L Hgb 10.3 L Hct 32.6 L MCV 81.7 MCH 25.7 MCHC 31.5 L RDW 23.1 H Plt Count 182 MPV 7.0 L D Absolute Neuts (auto) 1.3 L Neutrophils % 38.5 L D Lymphocytes % 43.4 H Monocytes % 12.4 H D Eosinophils % 3.9 Basophils % 1.8 Nucleated RBC % 0 Sodium 144 Potassium 2.8 L* Chloride 101 Carbon Dioxide 31 Anion Gap 12 BUN 8.0 Creatinine 0.6 Est GFR (CKD-EPI)AfAm 124.02 Est GFR (CKD-EPI)NonAf 107.00 Random Glucose 79 Calcium 8.3 L Total Bilirubin 0.7 AST 56 H ALT 24 Alkaline Phosphatase 121 H Total Protein 6.8 Albumin 3.3 L Alcohol, Quantitative 145.6 H *DC/Admit/Observation/Transfer Diagnosis at time of Disposition: Intoxication, Hypokalemia - Referrals - Patient Instructions Printed Discharge Instructions: DI for Alcohol Abuse Additional Instructions: You were evaluated today in the ER for your intoxication. No concerning findings were found. Please follow-up with primary care provider for further evaluation. Return to ER if any fever, chills, pain, or other concerning symptoms. - Post Discharge Activity
[2018-12-18 06:13] LABS: BASO % 1.8 % (0-2.0); EOS % 3.9 % (0-4.5); HEMATOCRIT 32.6 % (35.4-49); HEMOGLOBIN 10.3 GM/dL (11.7-16.9); LYMPH % 43.4 % (8-40); MCH 25.7 pg (25.7-33.7); MCHC 31.5 g/dl (32.0-35.9); MEAN CELL VOLUME 81.7 fl (80-96); MONO % 12.4 % (3.8-10.2); NEUT % 38.5 % (42.8-82.8); PLATELET COUNT 182 K/MM3 (134-434); RBC 3.99 M/mm3 (4.00-5.60); RDW 23.1 % (11.9-15.9); WHITE BLOOD COUNT 3.4 K/mm3 (4.0-10.0)
--- NOTE | 2018-12-18 06:39 | PDOC ---
Documentation entered by Serenity Juárez SCRIBE, acting as scribe for Nitish Hernandez MD. Nitish Hernandez MD: This documentation has been prepared by the Marquita pereira Adrianna, SCRIBE, under my direction and personally reviewed by me in its entirety. I confirm that the documentation accurately reflects all work, treatment, procedures, and medical decision making performed by me. Attending Attestation - Resident Resident Name: Kelvin Kee - ED Attending Attestation I have performed the following: I have examined & evaluated the patient, The case was reviewed & discussed with the resident, I agree w/resident's findings & plan, Exceptions are as noted - HPI HPI: The patient is a 63 year old male with a history of HTN, Mesothelioma, ETOH abuse who presents for evaluation of intoxication. The patient has EtOH consumption today, and notes he wants to sleep. He denies any other complaints and otherwise denies headache, fall, head trauma, chest pain, SOB, nausea, vomiting, abdominal pain, or changes with urination or bowel movements. Allergies: Fish Surgical History: None reported Social History: EtOH abuse - Physicial Exam PE: 12/18/18 06:36 GENERAL: Awake, alert, in no acute distress. Mildly intoxicated. HEAD: No signs of trauma EYES: EOMI, sclera anicteric, conjunctiva clear ENT: Auricles normal inspection, hearing grossly normal NECK: Normal ROM, supple SKIN: Warm, Dry, normal turgor, no rashes or lesions noted. - Medical Decision Making 12/18/18 06:37 A portion of this note was documented by scribe services under my direction. I have reviewed the details of the note, within reason, and agree with the documentation with the following case summary and management plan written by me. Patient treated in the ED. Nursing notes are reviewed and incorporated into the medical decision-making. Vital signs reviewed. Peripheral IV access obtained by the nurse, laboratory studies are drawn and sent, reviewed and interpreted by myself. Vital Signs Temp Pulse Resp BP Pulse Ox 97.5 F L 80 18 155/92 100 12/17/18 20:26 12/17/18 20:26 12/17/18 20:26 12/17/18 20:26 12/17/18 20:26 This patient is well-known to the emergency department here. The patient was brought in for intoxication and is in the process of currently sobering up. If the blood work doctor's no acute findings and the patient is sober and amateur, the patient can be discharged with outpatient follow-up. 12/18/18 06:44 CBC, BMP 12/18/18 05:50 12/18/18 05:50 CMP Sodium 144 mmol/L (136-145) 12/18/18 05:50 Chloride 101 mmol/L (98-107) 12/18/18 05:50 Carbon Dioxide 31 mmol/L (21-32) 12/18/18 05:50 Anion Gap 12 MMOL/L (8-16) 12/18/18 05:50 BUN 8.0 mg/dL (7-18) 12/18/18 05:50 Creatinine 0.6 mg/dL (0.55-1.3) 12/18/18 05:50 Est GFR (CKD-EPI)AfAm 124.02 12/18/18 05:50 Est GFR (CKD-EPI)NonAf 107.00 12/18/18 05:50 Random Glucose 79 mg/dL (74-106) 12/18/18 05:50 Calcium 8.3 mg/dL (8.5-10.1) L 12/18/18 05:50 Total Bilirubin 0.7 mg/dL (0.2-1) 12/18/18 05:50 AST 56 U/L (15-37) H 12/18/18 05:50 ALT 24 U/L (13-61) 12/18/18 05:50 Alkaline Phosphatase 121 U/L (45-117) H 12/18/18 05:50 Total Protein 6.8 g/dl (6.4-8.2) 12/18/18 05:50 Albumin 3.3 g/dl (3.4-5.0) L 12/18/18 05:50 Potassium 2.8. Will replete and repeat potassium. Pt signed out to oncoming ED attending Dr. Woodard for further management and disposition.
[2018-12-18 06:45] LABS: ALBUMIN 3.3 g/dl (3.4-5.0); BILIRUBIN,TOTAL 0.7 mg/dL (0.2-1); CALCIUM 8.3 mg/dL (8.5-10.1); CREATININE 0.6 mg/dL (0.55-1.3); TOT PROT 6.8 g/dl (6.4-8.2)
[2018-12-18 06:47] LABS: POTASSIUM 2.8 mmol/L (3.5-5.1)
[2018-12-18] MEDS ORDERED: POTASSIUM CHLORIDE TABS 20 MEQ TABLET.ER (FP) PO ONE (06:47)
--- NOTE | 2018-12-18 07:21 | PDOC ---
*Physical Exam - Vital Signs Last Vital Signs Temp Pulse Resp BP Pulse Ox 97.5 F L 80 18 155/92 100 12/17/18 20:26 12/17/18 20:26 12/17/18 20:26 12/17/18 20:26 12/17/18 20:26 ED Treatment Course - LABORATORY CBC & Chemistry Diagram: 12/18/18 05:50 12/18/18 05:50 - ADDITIONAL ORDERS Additional order review: Laboratory Results 12/18/18 05:50 Sodium 144 Potassium 2.8 L* Chloride 101 Carbon Dioxide 31 Anion Gap 12 BUN 8.0 Creatinine 0.6 Est GFR (CKD-EPI)AfAm 124.02 Est GFR (CKD-EPI)NonAf 107.00 Random Glucose 79 Calcium 8.3 L Total Bilirubin 0.7 AST 56 H ALT 24 Alkaline Phosphatase 121 H Total Protein 6.8 Albumin 3.3 L Alcohol, Quantitative 145.6 H 12/18/18 05:50 RBC 3.99 L MCV 81.7 MCHC 31.5 L RDW 23.1 H MPV 7.0 L D Neutrophils % 38.5 L D Lymphocytes % 43.4 H Monocytes % 12.4 H D Eosinophils % 3.9 Basophils % 1.8 - Medications Given in the ED: ED Medications Discontinued Medications Generic Name Dose Route Start Last Admin Trade Name Francisco Javier PRN Reason Stop Dose Admin Potassium Chloride 60 meq 12/18/18 06:47 12/18/18 07:10 K-Dur - PO 12/18/18 06:48 Not Given ONCE ONE Medical Decision Making - Medical Decision Making 12/18/18 07:20 Pt signed out to me by Dr. Yost. 63M, well known to ED, presents intoxicated. Found to have K of 2.8. Pt refused K and is A&Ox3. 12/18/18 07:54 Pt complaining of CP since yesterday, same CP that brought him into the ED initially, and states he had an EKG done and refuses another one although there is no record of an EKG being done yesterday. He refused K again and asks "is it ok to leave". 12/18/18 09:32 Pt eloped. *DC/Admit/Observation/Transfer Diagnosis at time of Disposition: Intoxication, Hypokalemia - Discharge Dispostion Disposition: ELOPED Decision to Admit order: No - Referrals - Patient Instructions Printed Discharge Instructions: DI for Alcohol Abuse Additional Instructions: You were evaluated today in the ER for your intoxication. No concerning findings were found. Please follow-up with primary care provider for further evaluation. Return to ER if any fever, chills, pain, or other concerning symptoms. - Post Discharge Activity
== END 2018-12-18 09:10 | disposition left against medical advice (07) ==
LOC: JER 20:16
DX: F10.220 Alcohol dependence with intoxication, uncomplicated (principal); Y90.6 Blood alcohol level of 120-199 mg/100 ml; E87.6 Hypokalemia; I10 Essential (primary) hypertension; C45.9 Mesothelioma, unspecified; Z91.14 Patient's other noncompliance with medication regimen; Z59.0 Homelessness
CPT/HCPCS: 36415; 80053; 80307; 85025; 99282-25

== ENCOUNTER 2018-12-21 20:42 | Emergency (ER) | payer OTHER ==
[2018-12-21 20:56] VITALS: BP 102/60; PULSE 88; TEMP 98; BMI 31.5
--- NOTE | 2018-12-21 20:57 | PDOC ---
Rapid Medical Evaluation Time Seen by Provider: 12/21/18 20:54 Medical Evaluation: Allergies Allergy/AdvReac Type Severity Reaction Status Date / Time Fish Containing Products Allergy Mild Swelling Verified 12/17/18 20:30 No Known Drug Allergies Allergy Verified 12/17/18 20:30 12/21/18 20:54 Pt c/o: picked up at [facility], when asked if anything hurts him , he states his lower back, pt denies injury Pt on brief exam: vss, intoxicated but verbally conversive, able to transfer indep from stretcher to chair, no midline vertebral tenderness Pt ordered for: none Pt to proceed to the ED Discharge Disposition - Diagnosis Alcohol abuse, Eloped from emergency department Back pain Qualifiers: Back pain location: low back pain Chronicity: chronic Back pain laterality: unspecified Sciatica presence: without sciatica Qualified Code(s): M54.5 - Low back pain - Discharge Dispostion Disposition: ELOPED Condition at time of disposition: Unchanged/Unknown - Referrals - Patient Instructions Printed Discharge Instructions: Alcoholism (Alternative Therapy) - Post Discharge Activity
[2018-12-22] MEDS ORDERED: BACITRACIN 15 GM TUBE TOPICAL OINTMENT TP ONE (04:02)
--- NOTE | 2018-12-22 04:02 | PDOC ---
History of Present Illness - General Chief Complaint: Back Pain Stated Complaint: BACK PAIN Time Seen by Provider: 12/21/18 20:54 History Source: Patient - History of Present Illness Initial Comments: 12/22/18 04:31 63 year old male CEDRIC well known to our ED with h/o EtOH use disorder with many prior ED visits, mesothelioma lung cancer, and HTN (non-adherent to medication regimens) s/p alcohol ingestion c/o back pain. patient is noted to have an abrasion to left elbow. no head trauma noted. no midline pain. last tetanus 2017 Past History - Past Medical History Allergies/Adverse Reactions: Allergies Allergy/AdvReac Type Severity Reaction Status Date / Time Fish Containing Products Allergy Mild Swelling Verified 12/21/18 20:56 No Known Drug Allergies Allergy Verified 12/21/18 20:56 Home Medications: Ambulatory Orders Metoprolol Tartrate [Lopressor -] 50 mg PO BID #60 tablet 11/22/18 Potassium Chloride [K-Dur -] 20 meq PO BID #60 tablet.er 11/22/18 Anemia: No Asthma: No Cancer: Yes (mesothelioma lung cancer) Cardiac Disorders: No CVA: No COPD: No CHF: No DVT: No Dementia: No Diabetes: No Dialysis: No GI Disorders: No Disorders: No HTN: Yes (non compliance) Hypercholesterolemia: No Kidney Stones: No Liver Disease: No Psychiatric Problems: Yes (etoh) Seizures: No Thyroid Disease: No Lung CA: No - Surgical History Abdominal Surgery: No Appendectomy: No Cardiac Surgery: No Cholecystectomy: No Lung Surgery: No Neurologic Surgery: No Orthopedic Surgery: No - Family Disease History Family Disease History: CA: Mother - Reproductive History Testicular Surgery: No - Immunization History TDAP Vaccination: Yes Immunization Up to Date: Yes - Suicide/Smoking/Psychosocial Hx Smoking Status: No Smoking History: Never smoked Have you smoked in the past 12 months: No Number of Cigarettes Smoked Daily: 0 If you are a former smoker, when did you quit?: 0 Cigars Per Day: 0 'Breaking Loose' booklet given: 09/22/17 Hx Alcohol Use: No Drug/Substance Use Hx: No Substance Use Type: Alcohol Hx Substance Use Treatment: Yes (just got out of detox yesterday) *Physical Exam - Vital Signs Last Vital Signs Temp Pulse Resp BP Pulse Ox 98 F 88 20 102/60 98 12/21/18 20:51 12/21/18 20:51 12/21/18 20:51 12/21/18 20:51 12/21/18 20:51 - Physical Exam General Appearance: Yes: Disheveled, Alcohol on Breath Cardiovascular: positive: Regular Rate Musculoskeletal: positive: Other (abrasion to left elbow. no deformityfull rom) Extremity: positive: Normal Capillary Refill, Normal Inspection, Normal Range of Motion Integumentary: positive: Normal Color, Dry, Warm Neurologic: positive: Fully Oriented, Alert, Normal Mood/Affect Medical Decision Making - Medical Decision Making 12/22/18 A: alcohol abuse; P: sobriety abrasion cleaned with saline and bacitracin applied. *DC/Admit/Observation/Transfer Diagnosis at time of Disposition: Alcohol abuse Back pain Qualifiers: Back pain location: low back pain Chronicity: chronic Back pain laterality: unspecified Sciatica presence: without sciatica Qualified Code(s): M54.5 - Low back pain - Discharge Dispostion Disposition: HOME - Referrals - Patient Instructions Printed Discharge Instructions: Alcoholism (Alternative Therapy) - Post Discharge Activity
--- NOTE | 2018-12-22 04:50 | PDOC ---
*Physical Exam - Vital Signs Last Vital Signs Temp Pulse Resp BP Pulse Ox 98 F 88 20 102/60 98 12/21/18 20:51 12/21/18 20:51 12/21/18 20:51 12/21/18 20:51 12/21/18 20:51 Medical Decision Making - Medical Decision Making 12/22/18 04:49 Patient seen by the advanced practice provider under my direct supervision. Ancillary testing reviewed as necessary. I agree with plan as outlined by the advanced practice provider. *DC/Admit/Observation/Transfer Diagnosis at time of Disposition: Alcohol intoxication, Back pain - Referrals - Patient Instructions - Post Discharge Activity
[2018-12-22] MEDS ORDERED: ACETAMINOPHEN 325 MG TABLET (FP) PO ONE (06:10)
== END 2018-12-22 06:45 | disposition left against medical advice (07) ==
LOC: JER 20:42
DX: F10.10 Alcohol abuse, uncomplicated (principal); M54.5 Low back pain; I10 Essential (primary) hypertension; C45.7 Mesothelioma of other sites
CPT/HCPCS: 99281-25

== ENCOUNTER 2018-12-29 12:09 | Emergency (ER) | payer OTHER ==
[2018-12-29 12:24] VITALS: BP 115/63; PULSE 89; TEMP 97.8; BMI 37.1
[2018-12-29] MEDS ORDERED: ACETAMINOPHEN 325 MG TABLET (FP) PO ONE (13:11)
--- NOTE | 2018-12-29 13:25 | PDOC ---
History of Present Illness - General Chief Complaint: Alcohol intoxication Stated Complaint: ALCOHOL INTOXICATION Time Seen by Provider: 12/29/18 13:03 History Source: Patient Exam Limitations: No Limitations Past History - Travel Traveled outside of the country in the last 30 days: No Close contact w/someone who was outside of country & ill: No - Past Medical History Allergies/Adverse Reactions: Allergies Allergy/AdvReac Type Severity Reaction Status Date / Time Fish Containing Products Allergy Mild Swelling Verified 12/21/18 20:56 No Known Drug Allergies Allergy Verified 12/21/18 20:56 Home Medications: Ambulatory Orders Metoprolol Tartrate [Lopressor -] 50 mg PO BID #60 tablet 11/22/18 Potassium Chloride [K-Dur -] 20 meq PO BID #60 tablet.er 11/22/18 Anemia: No Asthma: No Cancer: Yes (mesothelioma lung cancer) Cardiac Disorders: No CVA: No COPD: No CHF: No DVT: No Dementia: No Diabetes: No Dialysis: No GI Disorders: No Disorders: No HTN: Yes (non compliance) Hypercholesterolemia: No Kidney Stones: No Liver Disease: No Psychiatric Problems: Yes (etoh) Seizures: No Thyroid Disease: No Lung CA: No - Surgical History Abdominal Surgery: No Appendectomy: No Cardiac Surgery: No Cholecystectomy: No Lung Surgery: No Neurologic Surgery: No Orthopedic Surgery: No - Family Disease History Family Disease History: CA: Mother - Reproductive History Testicular Surgery: No - Immunization History TDAP Vaccination: Yes Immunization Up to Date: Yes - Suicide/Smoking/Psychosocial Hx Smoking Status: No Smoking History: Never smoked Have you smoked in the past 12 months: No Number of Cigarettes Smoked Daily: 0 If you are a former smoker, when did you quit?: 0 Cigars Per Day: 0 Information on smoking cessation initiated: No 'Breaking Loose' booklet given: 09/22/17 Hx Alcohol Use: No Drug/Substance Use Hx: No Substance Use Type: Alcohol Hx Substance Use Treatment: Yes (just got out of detox yesterday) Review of Systems - Review of Systems Able to Perform ROS?: Yes Comments:: 12/29/18 13:20 CONSTITUTIONAL: Present: alcohol on the breath Absent: fever, chills, diaphoresis, generalized weakness, malaise, loss of appetite HEENT: Absent: rhinorrhea, nasal congestion, throat pain, throat swelling, difficulty swallowing, mouth swelling, ear pain, eye pain, visual Changes CARDIOVASCULAR: Absent: chest pain, loss of consciousness, palpitations, irregular heart rate, peripheral edema RESPIRATORY: Absent: cough, shortness of breath, dyspnea with exertion, orthopnea, wheezing, stridor, hemoptysis GASTROINTESTINAL: Absent: abdominal pain, abdominal distension, nausea, vomiting, diarrhea, constipation, melena, hematochezia GENITOURINARY: Absent: dysuria, frequency, urgency, hesitancy, hematuria, flank pain, genital pain MUSCULOSKELETAL: Absent: myalgia, arthralgia, joint swelling SKIN: Absent: rash, itching, pallor HEMATOLOGIC/IMMUNOLOGIC: Absent: easy bleeding, easy bruising, lymphadenopathy, frequent infections ENDOCRINE: Absent: unexplained weight gain, unexplained weight loss, heat intolerance, cold intolerance NEUROLOGIC: Absent: headache, focal weakness or paresthesias, dizziness, unsteady gait, seizure, mental status changes, bladder or bowel incontinence PSYCHIATRIC: Absent: anxiety, depression, suicidal or homicidal ideation, hallucinations. Is the patient limited Kinyarwanda proficient: No *Physical Exam - Vital Signs Last Vital Signs Temp Pulse Resp BP Pulse Ox 97.8 F 89 16 115/63 95 12/29/18 12:19 12/29/18 12:19 12/29/18 12:19 12/29/18 12:19 12/29/18 12:19 - Physical Exam Comments: 12/29/18 13:20 GENERAL: Well developed, well nourished. Awake and alert. No acute distress. Disheveled, alcohol on the breath HEENT: Normocephalic, atraumatic. PERRLA, EOMI. No conjunctival pallor. Sclera are non- icteric. Moist mucous membranes. Oropharynx is clear. NECK: Supple. Full ROM. No JVD. Carotid pulses 2+ and symmetric, without bruits. No thyromegaly. No lymphadenopathy. CARDIOVASCULAR: Regular rate and rhythm. No murmurs, rubs, or gallops. Distal pulses are 2+ and symmetric. PULMONARY: No evidence of respiratory distress. Lungs clear to auscultation bilaterally. No wheezing, rales or rhonchi. ABDOMINAL: Soft. Non-tender. Non-distended. No rebound or guarding. No organomegaly. Normoactive bowel sounds. MUSCULOSKELETAL Normal range of motion at all joints. No bony deformities or tenderness. No CVA tenderness. EXTREMITIES: No cyanosis. No clubbing. No edema. No calf tenderness. SKIN: Warm and dry. Normal capillary refill. No rashes. No jaundice. NEUROLOGICAL: Alert, awake, appropriate. Cranial nerves 2-12 intact. No deficits to light touch and temperature in face, upper extremities and lower extremities. No motor deficits in the in face, upper extremities and lower extremities. Normoreflexic in the upper and lower extremities. Normal speech. Toes are down- going bilaterally. Gait is normal without ataxia. PSYCHIATRIC: Cooperative. Good eye contact. Appropriate mood and affect. Medical Decision Making - Medical Decision Making 12/29/18 13:59 Pt walking with steady gate, no longer clinically intoxicated Suggested showering in the ER as the patient is covered in stool, however patient does not want to Pt to be discharged home at this time. *DC/Admit/Observation/Transfer Diagnosis at time of Disposition: Alcohol abuse - Discharge Dispostion Disposition: HOME Condition at time of disposition: Stable Decision to Admit order: No - Referrals - Patient Instructions Printed Discharge Instructions: DI for Alcohol Abuse - Post Discharge Activity
== END 2018-12-29 14:39 | disposition home or self-care (01) ==
LOC: JER 12:09
DX: F10.10 Alcohol abuse, uncomplicated (principal); C45.7 Mesothelioma of other sites; I10 Essential (primary) hypertension
CPT/HCPCS: 99281-25

== ENCOUNTER 2019-01-05 08:27 | Inpatient (IN) | payer OTHER | END 2019-01-08 11:35 | disposition left against medical advice (07) | LOC: YASAS 08:27 → Y6N 10:08 ==

== ENCOUNTER 2019-01-08 21:37 | Inpatient (IN) | payer OTHER ==
[2019-01-08] MEDS ORDERED: LIDOCAINE 5% TOPICAL PATCH TP ONE (22:24)
[2019-01-08] MEDS ORDERED: LIDOCAINE 5% TOPICAL PATCH ONE (22:33)
--- NOTE | 2019-01-08 22:38 | PDOC ---
History of Present Illness <Lorri Kumar - Last Filed: 01/09/19 01:29> - General History Source: Patient Exam Limitations: Intoxication <Brina Frazier - Last Filed: 01/09/19 01:42> - General Chief Complaint: Back Pain Stated Complaint: BACK PAIN Time Seen by Provider: 01/08/19 22:03 Past History <Lorri Kumar - Last Filed: 01/09/19 01:29> - Past Medical History Anemia: No Asthma: No Cancer: Yes (mesothelioma lung cancer) Cardiac Disorders: No CVA: No COPD: No CHF: No DVT: No Dementia: No Diabetes: No Dialysis: No GI Disorders: No Disorders: No HTN: Yes (non compliance) Hypercholesterolemia: No Kidney Stones: No Liver Disease: No Psychiatric Problems: Yes (etoh) Seizures: No Thyroid Disease: No Lung CA: No - Surgical History Abdominal Surgery: No Appendectomy: No Cardiac Surgery: No Cholecystectomy: No Lung Surgery: No Neurologic Surgery: No Orthopedic Surgery: No - Family Disease History Family Disease History: CA: Mother - Reproductive History Testicular Surgery: No - Immunization History TDAP Vaccination: Yes Immunization Up to Date: Yes - Suicide/Smoking/Psychosocial Hx Smoking Status: No Smoking History: Unknown if ever smoked Have you smoked in the past 12 months: No Number of Cigarettes Smoked Daily: 0 If you are a former smoker, when did you quit?: 0 Cigars Per Day: 0 'Breaking Loose' booklet given: 09/22/17 Hx Alcohol Use: Yes Drug/Substance Use Hx: No Substance Use Type: Alcohol Hx Substance Use Treatment: Yes <KarinBrina - Last Filed: 01/09/19 01:42> - Past Medical History Allergies/Adverse Reactions: Allergies Allergy/AdvReac Type Severity Reaction Status Date / Time Fish Containing Products Allergy Mild Swelling Verified 01/05/19 08:57 No Known Drug Allergies Allergy Verified 01/05/19 08:57 Home Medications: Ambulatory Orders Metoprolol Tartrate [Lopressor -] 50 mg PO BID #60 tablet 11/22/18 *Physical Exam - Vital Signs Last Vital Signs Temp Pulse Resp BP Pulse Ox 98.1 F 86 18 90/46 L 100 01/08/19 21:51 01/08/19 21:51 01/08/19 21:51 01/08/19 21:51 01/08/19 21:51 <Lorri Kumar - Last Filed: 01/09/19 01:29> - Vital Signs Last Vital Signs Temp Pulse Resp BP Pulse Ox 98.1 F 86 18 90/46 L 100 01/08/19 21:51 01/08/19 21:51 01/08/19 21:51 01/08/19 21:51 01/08/19 21:51 - Physical Exam General Appearance: Yes: Disheveled, Alcohol on Breath. No: Apparent Distress Respiratory/Chest: positive: Lungs Clear, Normal Breath Sounds. negative: Respiratory Distress Cardiovascular: positive: Regular Rhythm, Regular Rate. negative: Murmur Gastrointestinal/Abdominal: positive: Soft. negative: Tender Musculoskeletal: negative: Muscle Spasm, Vertebral Tenderness Extremity: positive: Other (no trauma to extremities) Integumentary: negative: Ecchymosis, Bruising <Brina Frazier - Last Filed: 01/09/19 01:42> ED Treatment Course - LABORATORY CBC & Chemistry Diagram: 01/08/19 23:08 01/08/19 23:08 - ADDITIONAL ORDERS Additional order review: Laboratory Results 01/08/19 23:08 Sodium 141 Potassium 2.5 L* Chloride 101 Carbon Dioxide 27 Anion Gap 14 BUN 6.0 L Creatinine 1.4 H Est GFR (CKD-EPI)AfAm 61.53 Est GFR (CKD-EPI)NonAf 53.09 Random Glucose 90 Calcium 8.3 L Magnesium 0.9 L Total Bilirubin 0.6 AST 85 H ALT 47 Alkaline Phosphatase 99 Creatine Kinase 161 Creatine Kinase Index 2.4 CK-MB (CK-2) 3.9 H Troponin I < 0.02 Total Protein 5.8 L Albumin 2.9 L 01/08/19 23:08 RBC 3.68 L MCV 85.2 MCHC 31.7 L RDW 22.7 H MPV 8.0 Neutrophils % 64.6 D Lymphocytes % 22.4 D Monocytes % 10.5 H Eosinophils % 2.2 Basophils % 0.3 - Medications Given in the ED: ED Medications Discontinued Medications Generic Name Dose Route Start Last Admin Trade Name Freq PRN Reason Stop Dose Admin Sodium Chloride 500 mls @ 500 mls/hr 01/09/19 00:22 01/09/19 01:08 Normal Saline - IV 01/09/19 01:21 500 mls/hr ASDIR STA Administration Lidocaine 1 patch 07/27/19 22:24 01/08/19 22:34 Lidoderm Patch - TP 01/08/19 22:25 1 patch ONCE ONE Administration Magnesium Sulfate 2 gm 01/08/19 22:57 01/08/19 23:30 Magnesium Sulfate IVPB 01/08/19 22:58 2 gm ONCE ONE Administration Potassium Chloride 40 meq 01/08/19 22:57 01/08/19 23:52 K-Dur - PO 01/08/19 22:58 Not Given ONCE ONE Potassium Chloride 40 meq 01/09/19 00:21 01/09/19 01:08 Potassium Chloride Oral Liquid PO 01/09/19 00:22 Not Given ONCE ONE Sodium Chloride 500 ml 01/08/19 22:57 01/08/19 23:00 Normal Saline - IV 01/08/19 22:58 500 ml ONCE ONE Administration <Lorri Kumar - Last Filed: 01/09/19 01:29> - LABORATORY CBC & Chemistry Diagram: 01/08/19 23:08 01/08/19 23:08 <Brina Frazier - Last Filed: 01/09/19 01:42> Medical Decision Making - Medical Decision Making 63 y/o M hx of HTN, Mesothelioma, ETOH abuse, atrial fibrillation (seen 08/2018 by cardio, normal EF on TTE 08/2018, deemed not a safe candidate for AC) with multiple visits to the ED was BIBEMS for alcohol intoxication. Patient also c/o chronic lower back pain (along tailbone region). States he was seen at [facility] regarding his back and has ? "dislocated disc between buttocks" for which he was told nothing was going to be done regarding it and recommended for rest and no heavy work. Denies pain along lower extremities. ROS limited given patient is intoxicated Plan: Lidocaine patch, recheck BP, sobriety 01/08/19 22:38 Repeat vitals still hypotensive (BP lower than prior visits) Will get labs and give IVF reassess 01/08/19 23:14 K is 2.5 (patient has chronically low K from prior visits as well) Patient refused PO potassium; for now is getting 40 meQ of IV potassium Patient also given Mg (also low in the past) D/W Dr. Kumar - would like to admit given hypokalemia 01/09/19 01:19 <Brina Frazier - Last Filed: 01/09/19 01:42> *DC/Admit/Observation/Transfer - Discharge Dispostion Decision to Admit order: Yes <Lorri Kumar - Last Filed: 01/09/19 01:29> - Discharge Dispostion Decision to Admit order: Yes <Brina Frazier - Last Filed: 01/09/19 01:42> Diagnosis at time of Disposition: Alcohol abuse, Hypokalemia Hypotension Qualifiers: Hypotension type: unspecified hypotension type Qualified Code(s): I95.9 - Hypotension, unspecified - Discharge Dispostion Condition at time of disposition: Stable - Referrals Referrals: Lily Cornejo [Primary Care Provider] - - Patient Instructions - Post Discharge Activity
[2019-01-08] MEDS ORDERED: SODIUM CHLORIDE 0.9% 500 ML INFUS.BAG IV ONE (22:57)
[2019-01-08] MEDS ORDERED: POTASSIUM CHLORIDE TABS 20 MEQ TABLET.ER (FP) PO ONE ×2 (22:57→23:34)
[2019-01-08] MEDS ORDERED: MAGNESIUM SULF 50% (8.12 MEQ/2 ML-1 GM VIAL) IVPB ONE (22:57)
[2019-01-08 23:28] LABS: BASO % 0.3 % (0-2.0); EOS % 2.2 % (0-4.5); HEMATOCRIT 31.4 % (35.4-49); LYMPH % 22.4 % (8-40); MCHC 31.7 g/dl (32.0-35.9); MEAN CELL VOLUME 85.2 fl (80-96); MONO % 10.5 % (3.8-10.2); NEUT % 64.6 % (42.8-82.8); PLATELET COUNT 188 K/MM3 (134-434); RBC 3.68 M/mm3 (4.00-5.60); RDW 22.7 % (11.9-15.9); WHITE BLOOD COUNT 7.1 K/mm3 (4.0-10.0)
[2019-01-08] MEDS ORDERED: MAGNESIUM 1GM/D5W - 1 GM/100 ML IVPB IVPB ONE (23:38)
[2019-01-08 23:59] LABS: ANISOCYTOSIS 2+; MACROCYTOSIS 2+; PLATELET ESTIMATE NORMAL
[2019-01-09] MEDS: KCL 10 MEQ IVPB 10 MEQ/100 ML INFUS.BAG IVPB SCH ×5 (00:07→09:25)
[2019-01-09 00:10] LABS: ALBUMIN 2.9 g/dl (3.4-5.0); ALK PHOS 99 U/L (45-117); ANION GAP 14 MMOL/L (8-16); BILIRUBIN,TOTAL 0.6 mg/dL (0.2-1); CALCIUM 8.3 mg/dL (8.5-10.1); CHLORIDE 101 mmol/L (98-107); CO2 27 mmol/L (21-32); CREATININE 1.4 mg/dL (0.55-1.3); GLUCOSE,RANDOM 90 mg/dL (74-106); SGOT/AST 85 U/L (15-37); SGPT/ALT 47 U/L (13-61); SODIUM 141 mmol/L (136-145); TOT PROT 5.8 g/dl (6.4-8.2)
[2019-01-09 00:16] LABS: POTASSIUM 2.5 mmol/L (3.5-5.1)
[2019-01-09] MEDS ORDERED: POTASSIUM CHLORIDE ORAL LIQUID 20 MEQ/15 ML PO ONE (00:21)
[2019-01-09] MEDS ORDERED: SODIUM CHLORIDE 500 ML IV STA (00:22)
[2019-01-09] MEDS ORDERED: KCL 10 MEQ IVPB 40 MEQ/400 ML INFUS.BAG IVPB ONE (00:26)
[2019-01-09] MEDS ORDERED: KCL 10 MEQ IVPB 10 MEQ/100 ML INFUS.BAG IVPB SCH (00:30)
[2019-01-09 01:20] LABS: MAGNESIUM 0.9 mg/dL (1.8-2.4)
[2019-01-09] MEDS ORDERED: LACTATED RINGERS SOLUTION 1000 ML INFUS.BAG IV ONE (02:02)
[2019-01-09] MEDS ORDERED: POTASSIUM CHLORIDE TABS 10 MEQ TABLET.ER (FP) PO ONE (02:03)
--- NOTE | 2019-01-09 02:36 | HP ---
CHIEF COMPLAINT: hypokalemia in alcohol intoxicated state PCP: HISTORY OF PRESENT ILLNESS: Pt refused history and physical exam. Pt is enebriated at the moment. As per ED note, this is a 63 y/o M with a PMH of HTN, Mesothelioma, ETOH abuse, atrial fibrillation (seen 08/31 by cardio, normal EF on TTE 08/2018, deemed not a safe candidate for AC) with multiple visits to the ED was brought in by EMS for alcohol intoxication. Patient also c/o chronic lower back pain (along tailbone region). States he was seen at [facility] regarding his back and has possible " dislocated disc between buttocks" for which he was told nothing was going to be done regarding it and recommended for rest and no heavy work. Pt denies pain along lower extremities. ROS unobtainable Patient is hypokalemic at baseline and is currently at 2.5. Waiting for repeat lab to see if it has increased since the 20Meq/L Kcl bag was given. ER course was notable for: (1)ekg ordered (2)K-2.1 repleting (3) Recent Travel: PAST MEDICAL HISTORY: PAST SURGICAL HISTORY: Social History: Smoking: Alcohol: Drugs: Family History: Allergies Fish Containing Products Allergy (Mild, Verified 01/05/19 08:57) Swelling No Known Drug Allergies Allergy (Verified 01/05/19 08:57) HOME MEDICATIONS: Home Medications Medication Instructions Recorded Metoprolol Tartrate [Lopressor -] 50 mg PO BID #60 tablet 11/22/18 REVIEW OF SYSTEMS CONSTITUTIONAL: Absent: fever, chills, diaphoresis, generalized weakness, malaise, loss of appetite, weight change HEENT: Absent: rhinorrhea, nasal congestion, throat pain, throat swelling, difficulty swallowing, mouth swelling, ear pain, eye pain, visual changes CARDIOVASCULAR: Absent: chest pain, syncope, palpitations, irregular heart rate, lightheadedness , peripheral edema RESPIRATORY: Absent: cough, shortness of breath, dyspnea with exertion, orthopnea, wheezing, stridor, hemoptysis GASTROINTESTINAL: Absent: abdominal pain, abdominal distension, nausea, vomiting, diarrhea, constipation, melena, hematochezia GENITOURINARY: Absent: dysuria, frequency, urgency, hesitancy, hematuria, flank pain, genital pain MUSCULOSKELETAL: Absent: myalgia, arthralgia, joint swelling, back pain, neck pain SKIN: Absent: rash, itching, pallor HEMATOLOGIC/IMMUNOLOGIC: Absent: easy bleeding, easy bruising, lymphadenopathy, frequent infections ENDOCRINE: Absent: unexplained weight gain, unexplained weight loss, heat intolerance, cold intolerance NEUROLOGIC: Absent: headache, focal weakness or paresthesias, dizziness, unsteady gait, seizure, mental status changes, bladder or bowel incontinence PSYCHIATRIC: Absent: anxiety, depression, suicidal or homicidal ideation, hallucinations. PHYSICAL EXAMINATION Vital Signs - 24 hr 01/08/19 01/08/19 01/08/19 21:37 21:51 22:45 Temperature 98.1 F Pulse Rate 86 Pulse Rate [ 78 82 Left Ulnar] Respiratory 24 H 18 22 H Rate Blood Pressure 90/46 L Blood Pressure 79/41 L [Left] Blood Pressure 71/41 L [Right Arm] O2 Sat by Pulse 88 L 100 97 Oximetry (%) Patient enebriated. In slight distress and expressed that he wanted to be left alone. Pt seemed to be alert and oriented to place but could not assess any further. Pt refused physical exam. Laboratory Results - last 24 hr 01/08/19 01/08/19 23:08 23:08 WBC 7.1 RBC 3.68 L Hgb 10.0 L Hct 31.4 L MCV 85.2 MCH 27.0 MCHC 31.7 L RDW 22.7 H Plt Count 188 MPV 8.0 Absolute Neuts (auto) 4.6 Neutrophils % 64.6 D Lymphocytes % 22.4 D Monocytes % 10.5 H Eosinophils % 2.2 Basophils % 0.3 Nucleated RBC % 0 Hypochromia 1+ Platelet Estimate Normal Platelet Comment No clumping noted Anisocytosis 2+ Macrocytosis 2+ Sodium 141 Potassium 2.5 L* Chloride 101 Carbon Dioxide 27 Anion Gap 14 BUN 6.0 L Creatinine 1.4 H Est GFR (CKD-EPI)AfAm 61.53 Est GFR (CKD-EPI)NonAf 53.09 Random Glucose 90 Calcium 8.3 L Magnesium 0.9 L Total Bilirubin 0.6 AST 85 H ALT 47 Alkaline Phosphatase 99 Creatine Kinase 161 Creatine Kinase Index 2.4 CK-MB (CK-2) 3.9 H Troponin I < 0.02 Total Protein 5.8 L Albumin 2.9 L ASSESSMENT/PLAN: This is a 63 y/o M hx of HTN, Mesothelioma, ETOH abuse, atrial fibrillation ( seen 08/2018 by cardio, normal EF on TTE 08/2018, deemed not a safe candidate for AC) with multiple visits to the ED was BIBEMS for alcohol intoxication. Patient also c/o chronic lower back pain (along tailbone region). States he was seen at [facility] regarding his back and has ? "dislocated disc between buttocks" for which he was told nothing was going to be done regarding it and recommended for rest and no heavy work. Denies pain along lower extremities. #alcohol intoxication -ua tox pending - librium protocol - unable to assess COWS - no tremor on exam - could consider banana bag, thiamine, folate since pt is chronic alcoholic. #Hypokalemia - chronic issue for him - repleted with one bag IV KCL bc pt cannot tolerate PO K due to it upsetting his stomach. - pt refuses management of hypokalemia. - Psych consulted - follow repeat BMP - ordered 40PO daily K, 2Krider, 2gMg, and NS 75ml/hr. - will continue to monitor - On IV LR. - Trops negative. - CK-MB negative - ekg stat ordered #Hypotensive - likely 2/2 dehydration -chronic issue - will continue to monitor - will assess after fluids given. Elevated transaminases - chronic alcohol use - AST 85, ALT 47. greater than 2:1 AST:ALT ratio for alcoholics. - continue to monitor. FEN: 75ML ns, MONITOR LYTES, regular diet Visit type - Emergency Visit Emergency Visit: Yes ED Registration Date: 01/09/19 Care time: The patient presented to the Emergency Department on the above date and was hospitalized for further evaluation of their emergent condition. - New Patient This patient is new to me today: Yes Date on this admission: 01/09/19 - Critical Care Critical Care patient: No ATTENDING PHYSICIAN STATEMENT I saw and evaluated the patient. I reviewed the resident's note and discussed the case with the resident. I agree with the resident's findings and plan as documented. SUBJECTIVE: OBJECTIVE: ASSESSMENT AND PLAN:
--- NOTE | 2019-01-09 03:17 | PN ---
Teaching Attending Note Name of Resident: Weston Bridges ATTENDING PHYSICIAN STATEMENT I saw and evaluated the patient. I reviewed the resident's note and discussed the case with the resident. I agree with the resident's findings and plan as documented. Seen and examined; please see resident note for further hsitorical information. Briefly, he presents for back pain (unclear history of recent eval at [facility] [place] with what he describes as disc protrusion between his buttocks to the ER) with possible intox. He has repeated low BP readings in his R-arm documented over the past year and repeated hypokalemia at or below this level (actually was here with a lower level yesterday and left AMA from detox). Had a similar BP 12/14/2018 and was discharged). He is well known to the service. He is hemodynamically stable and was never tachy. No red-flag symptoms with back pain. Refused exam multiple times. Refused PO iron and I am told IV iron and he has in the past; he was rude when asked to take the potassium. VS, labs, imaging reviewed Refused examination; recheck BP stable, no tachycardia, no tachypnea. EKG pending Labs reviewed VS reviewed; orthostatics pending ASSESSMENT AND PLAN: Patient with history of repeat hypotension (known with prior low BP in R-arm and undocumented under the vitals in [employer]) and chronic hypokalemia presents for back pain; >100 ER visits in past year. Requested to admit for hypokalemia and hypotension. He refused PO replacemetn in ER. 1) Hypotension -Not on every visit, but definitive documentation on days of DC in chart. No s/ s sepsis, no tachycardia. Orthostatics pending. -Could consider non-urgent ultrasound to r/o subclavian steal given always documented R-side, but some on 'undocumented' as well. No sx of vascular issues in UE. -Bolus and check BP in both arms and document under VS 2) Chronic Hypokalemia -Refuses PO replacement. 2/2 EtOH abuse. Gave IV K in ER; recheck is same so will give additional K. Refusing PO treatment and has refused IV. Will attempt to treat. Correcting Mg -Due to his refusal for treatmnent but no wish to leave, with the presence of critical lab values in a patietn with complex social situation and likely underlying psych/personality issues will consult psych to see if he would benefit from any medical assistance. Consult CM and SW. 3) REBECCA -Over his baseline; he appears dry and intoxicated. -Recheck after bolus 4) EtOH abuse -CIWA with Librium, thiamine and folate. Offer rehab; just left AMA on 01/05 so unsure he will be amiable. 5) Back Pain -No red flag sx but refuses exam; had recent workup with [facility]. No planned procedure per patient but unreliable historian. Will place on 6) Hx Mesothelioma -FU OP with pulmonary/onc; unknown disease status limited by poor compliance. 7) Noncompliance 8) Obesity (BMI 31) 9) HTN -Unclear compliance with metoprolol; potential hypotension so will hold 10) Anemia -Check FOBT, iron studies Full Code
[2019-01-09 05:17] LABS: BLOOD UREA NITROGEN 6.2 mg/dL (7-18); CALCIUM 7.9 mg/dL (8.5-10.1); CREATININE 1.2 mg/dL (0.55-1.3); MAGNESIUM 1.3 mg/dL (1.8-2.4)
[2019-01-09 05:19] LABS: POTASSIUM 2.5 mmol/L (3.5-5.1)
[2019-01-09] MEDS ORDERED: MAGNESIUM SULF 50% (8.12 MEQ/2 ML-1 GM VIAL) IVPB ONE (06:49)
[2019-01-09] MEDS ORDERED: POTASSIUM CHLORIDE TABS 20 MEQ TABLET.ER (FP) PO ONE (06:49)
[2019-01-09] MEDS: SODIUM CHLORIDE 1,000 ML IV SCH ×2 (07:30→22:21)
[2019-01-09] MEDS ORDERED: chlordiazePOXIDE HCL 25 MG CAPSULE PO ONE (08:25)
[2019-01-09] MEDS ORDERED: chlordiazePOXIDE HCL 25 MG CAPSULE PO PRN (08:25)
[2019-01-09] MEDS ORDERED: THIAMINE HCL 200 MG/2 ML VIAL IVPB ONE (08:28)
[2019-01-09] MEDS ORDERED: FOLIC ACID 1 MG TABLET (FP) PO ONE (09:45)
[2019-01-09] MEDS ORDERED: POTASSIUM CHLORIDE TABS 20 MEQ TABLET.ER (FP) PO SCH (10:00)
[2019-01-09 10:22] LABS: BLOOD UREA NITROGEN 5.5 mg/dL (7-18); CALCIUM 8.2 mg/dL (8.5-10.1); CREATININE 0.8 mg/dL (0.55-1.3)
--- NOTE | 2019-01-09 10:26 | EKG ---
Test Reason : Blood Pressure : / mmHG Vent. Rate : 087 BPM Atrial Rate : 087 BPM P-R Int : 180 ms QRS Dur : 102 ms QT Int : 368 ms P-R-T Axes : 020 -35 073 degrees QTc Int : 442 ms SINUS RHYTHM WITH PREMATURE ATRIAL COMPLEXES LEFT AXIS DEVIATION POSSIBLE ANTERIOR INFARCT (CITED ON OR BEFORE 09-JAN-2019) ABNORMAL ECG WHEN COMPARED WITH ECG OF 09-JAN-2019 00:59, COMPARED TO EKG NO SIGNIFICANT CHANGE IS FOUND Confirmed by HARJINDER VALLADARES MD ([id number]) on 01/09/2019 10:26:32 AM Referred By: Confirmed By:HARJINDER VALLADARES MD
[2019-01-09 10:27] LABS: POTASSIUM 2.8 mmol/L (3.5-5.1)
--- NOTE | 2019-01-09 10:28 | EKG ---
Test Reason : Blood Pressure : / mmHG Vent. Rate : 086 BPM Atrial Rate : 086 BPM P-R Int : 184 ms QRS Dur : 104 ms QT Int : 410 ms P-R-T Axes : 022 -39 045 degrees QTc Int : 490 ms NORMAL SINUS RHYTHM LEFT AXIS DEVIATION POSSIBLE ANTERIOR INFARCT , AGE UNDETERMINED ST DEPRESSIONS LATERAL LEADS ABNORMAL ECG WHEN COMPARED WITH ECG OF 08-JAN-2019 01:44, ST DEPRESSION IS MORE PRONOUNCED IN LATERAL LEADS Confirmed by HARJINDER VALLADARES MD ([id number]) on 01/09/2019 10:27:54 AM Referred By: Confirmed By:HARJINDER VALLADARES MD
[2019-01-09 10:48] LABS: IRON SERUM 17 ug/dL (50-175); TOTAL IRON BINDING CAPACITY 312 ug/dL (250-450)
[2019-01-09] MEDS: FOLIC ACID 1 MG TABLET (FP) PO SCH (10:48)
[2019-01-09] MEDS ORDERED: chlordiazePOXIDE HCL 25 MG CAPSULE PO SCH (11:00)
--- NOTE | 2019-01-09 13:23 | PN ---
Progress Note (short form) - Note Progress Note: Subjective: refusd exam and interview. nely paz want to receive any K in any form IV or PO . he was informed that low K can cause arrhythmia sand Objective: Vital Signs: Last Vital Signs Temp Pulse Resp BP Pulse Ox 98.5 F 97 H 18 128/74 95 01/09/19 10:26 01/09/19 10:26 01/09/19 10:26 01/09/19 10:26 01/09/19 10:26 Physical Exam: refused Assessment/Plan: 63 y/o man with a main problem of alcoholism who presented " to detox " - hypokalemia: refuses treatment . - anemia: chronic. no evidence of iron def in past . iron studies have no ferritin. will not order . previous B12 low. start B12 daily - alcohol abuse: no signs of withdrawal . hold off librium. will treat if + signs DVT px Visit type - Emergency Visit Emergency Visit: Yes ED Registration Date: 01/09/19 Care time: The patient presented to the Emergency Department on the above date and was hospitalized for further evaluation of their emergent condition. - New Patient This patient is new to me today: Yes Date on this admission: 01/09/19 - Critical Care Critical Care patient: No
[2019-01-09] MEDS: HEPARIN NA (PORCINE) 5,000 UNITS/ML 1ML VIAL SQ SCH (22:23)
[2019-01-10] MEDS: SODIUM CHLORIDE 1,000 ML IV SCH (06:23)
[2019-01-10] MEDS: HEPARIN NA (PORCINE) 5,000 UNITS/ML 1ML VIAL SQ SCH ×4 (06:23→21:23)
[2019-01-10] MEDS ORDERED: THIAMINE HCL 200 MG/2 ML VIAL IVPB SCH (10:00)
[2019-01-10] MEDS ORDERED: POTASSIUM CHLORIDE TABS 20 MEQ TABLET.ER (FP) PO SCH (10:00)
[2019-01-10] MEDS: FOLIC ACID 1 MG TABLET (FP) PO SCH (10:29)
[2019-01-10] MEDS: DOCUSATE SODIUM 100 MG CAPSULE (FP) PO SCH (10:30)
[2019-01-10] MEDS: CYANOCOBALAMIN 1,000 MCG TABLET (FP) PO SCH (10:30)
[2019-01-10] MEDS: THIAMINE HCL 100 MG TABLET (FP) PO SCH (10:30)
[2019-01-10 11:47] LABS: BLOOD UREA NITROGEN 5.5 mg/dL (7-18); CREATININE 0.5 mg/dL (0.55-1.3)
[2019-01-10 12:07] LABS: POTASSIUM 2.7 mmol/L (3.5-5.1)
--- NOTE | 2019-01-10 13:44 | PN ---
Teaching Attending Note Name of Resident: Weston Bridges ATTENDING PHYSICIAN STATEMENT I saw and evaluated the patient. I reviewed the resident's note and discussed the case with the resident. I agree with the resident's findings and plan as documented. SUBJECTIVE: no fever or chills. has chronic back pain. OBJECTIVE: refused exam A/P : 63 y/o man with a main problem of alcoholism who presented " to detox " - hypokalemia: cont to refuse treatment and understands the risk of arrhythmias an . declines po and IV Kcl consult dietitian add a banana to each meal - anemia: chronic. no evidence of iron def in past . cont B12 daily - HTN: will discuss with himif he is interested in treatment. he was started on meds in past, he never took - alcohol abuse: no signs of withdrawal . monitor DVT px will potentially need rehab at [place]
--- NOTE | 2019-01-10 18:07 | PN ---
Physical Exam: SUBJECTIVE: Patient seen but refused examination today. No acute events overnight. OBJECTIVE: Vital Signs Period Temp Pulse Resp BP Sys/Jang Pulse Ox Last 24 Hr 98 F-98.8 F 82-96 18-20 146-164/65-88 95 Patient refused Physical Exam Laboratory Results - last 24 hr 01/10/19 01/10/19 10:45 14:55 Sodium 142 Cancelled Potassium 2.7 L* Cancelled Chloride 104 Cancelled Carbon Dioxide 31 Cancelled Anion Gap 6 L Cancelled BUN 5.5 L Cancelled Creatinine 0.5 L Cancelled Est GFR (CKD-EPI)AfAm 133.67 Cancelled Est GFR (CKD-EPI)NonAf 115.33 Cancelled Random Glucose 105 Cancelled Calcium 8.0 L Cancelled Magnesium 1.5 L Active Medications Generic Name Dose Route Start Last Admin Trade Name Freq PRN Reason Stop Dose Admin Cyanocobalamin 1,000 mcg 01/10/19 10:00 01/10/19 10:30 Vitamin B12 - PO 1,000 mcg DAILY CAREY Administration Docusate Sodium 100 mg 01/10/19 10:15 01/10/19 10:30 Colace - PO 100 mg DAILY CAREY Administration Folic Acid 1 mg 01/09/19 10:00 01/10/19 10:29 Folic Acid - PO 1 mg DAILY CAREY Administration Heparin Sodium (Porcine) 5,000 unit 01/09/19 14:00 01/10/19 14:46 Heparin - SQ Not Given TID CAREY Sodium Chloride 1,000 mls @ 75 mls/hr 01/09/19 07:00 01/10/19 06:23 Normal Saline - IV Not Given ASDIR CAREY Thiamine HCl 100 mg 01/10/19 10:00 01/10/19 10:30 Vitamin B1 - PO 100 mg DAILY CAREY Administration ASSESSMENT/PLAN: This is a 63 y/o M hx of HTN, Mesothelioma, ETOH abuse, atrial fibrillation ( seen 08/2018 by cardio, normal EF on TTE 08/2018, deemed not a safe candidate for AC) with multiple visits to the ED was BIBEMS for alcohol intoxication. Patient also c/o chronic lower back pain (along tailbone region). States he was seen at [facility] regarding his back and has ? "dislocated disc between buttocks" for which he was told nothing was going to be done regarding it and recommended for rest and no heavy work. Denies pain along lower extremities. #alcohol intoxication - pt refused PE today so wasnt able to assess COWS. - bananas incorporated into his diet - not on librium - UA hx of ESBL so on contact precaution. - thiamine - veneer department manager consulted. - repeat PT tomorrow #Hypokalemia - chronic issue for him - pt refuses management of hypokalemia. - follow repeat BMP - will continue to monitor - On IV LR. #Hypotensive - likely 2/2 dehydration - resolved Elevated transaminases - chronic alcohol use - continue to monitor. FEN: 75ML ns, MONITOR LYTES, regular diet Dispo: Patient may elope, refusing management, Social work tried to get in touch with [facility] for him to go there as o/p and awaiting there call back. Pt has agreed to go there. Visit type - Emergency Visit Emergency Visit: Yes ED Registration Date: 01/09/19 Care time: The patient presented to the Emergency Department on the above date and was hospitalized for further evaluation of their emergent condition. - New Patient This patient is new to me today: No - Critical Care Critical Care patient: No - Discharge Referral Referred to [facility] No ATTENDING PHYSICIAN STATEMENT I saw and evaluated the patient. I reviewed the resident's note and discussed the case with the resident. I agree with the resident's findings and plan as documented. SUBJECTIVE: OBJECTIVE: ASSESSMENT AND PLAN:
[2019-01-11] MEDS ORDERED: chlordiazePOXIDE HCL 25 MG CAPSULE PO SCH (05:00)
[2019-01-11] MEDS: HEPARIN NA (PORCINE) 5,000 UNITS/ML 1ML VIAL SQ SCH (06:06)
[2019-01-11] MEDS: SODIUM CHLORIDE 1,000 ML IV SCH (06:07)
[2019-01-11 08:16] LABS: MAGNESIUM 1.3 mg/dL (1.8-2.4)
[2019-01-11 08:22] LABS: POTASSIUM 2.9 mmol/L (3.5-5.1)
[2019-01-11] MEDS: CYANOCOBALAMIN 1,000 MCG TABLET (FP) PO SCH ×2 (10:58→11:07)
[2019-01-11] MEDS: DOCUSATE SODIUM 100 MG CAPSULE (FP) PO SCH ×2 (10:58→11:06)
[2019-01-11] MEDS: THIAMINE HCL 100 MG TABLET (FP) PO SCH ×2 (10:59→11:07)
[2019-01-11] MEDS: FOLIC ACID 1 MG TABLET (FP) PO SCH ×2 (10:59→11:07)
[2019-01-11 11:32] VITALS: BP 150/84; PULSE 82; TEMP 98.5
[2019-01-11 15:40] VITALS: BMI 35.3
--- NOTE | 2019-01-11 17:55 | PN ---
Teaching Attending Note Name of Resident: Weston Bridges ATTENDING PHYSICIAN STATEMENT I saw and evaluated the patient. I reviewed the resident's note and discussed the case with the resident. I agree with the resident's findings and plan as documented. SUBJECTIVE: refused interview and exam. Used aggressive insulting words with MD. left AMA despite understanding the risks associated with that. Dr. Bridges, again d/w him the risks before he left
[2019-01-12] MEDS ORDERED: chlordiazePOXIDE HCL 10 MG CAPSULE PO PRN
[2019-01-12] MEDS ORDERED: chlordiazePOXIDE HCL 10 MG CAPSULE PO SCH (05:00)
[2019-01-13] MEDS ORDERED: chlordiazePOXIDE HCL 10 MG CAPSULE PO SCH (05:00)
[2019-01-14] MEDS ORDERED: chlordiazePOXIDE HCL 10 MG CAPSULE PO ONE (05:00)
--- NOTE | 2019-01-14 07:29 | DS ---
Physical Exam: SUBJECTIVE: Patient refusing any treatment and physical exam. Patient AMA'd. OBJECTIVE: PHYSICAL EXAM LABS HOSPITAL COURSE: Date of Admission:01/08/19 Date of Discharge: 01/11/19 This is a 63 y/o M w PMH of HTN, Mesothelioma, ESBL UA hx, ETOH abuse, atrial fibrillation (seen 08/2018 by cardio, normal EF on TTE, deemed not a safe candidate for AC) with multiple visits to the ED, who was admitted for hypokalemia and alcohol intoxication. Pt refused management for his hypokalemia and alcohol intoxication. Pt is very uncooperative and refuses to be examined. EKG showed no change from prior one and no signs of arrythmia. Pt was explained the consequences of AMA, however pt decides to AMA. Minutes to complete discharge: 35 Discharge Summary Reason For Visit: BACK PAIN Current Active Problems Hypoxia (Acute) Condition: Stable - Instructions Disposition: AGAINST MEDICAL ADVICE - Home Medications Comprehensive Discharge Medication List: Ambulatory Orders Unobtainable 01/13/19 This patient is new to me today: No Emergency Visit: Yes ED Registration Date: 01/11/19 Care time: The patient presented to the Emergency Department on the above date and was hospitalized for further evaluation of their emergent condition. Critical Care patient: No - Discharge Referral Referred to [facility] Med P.C.: No ATTENDING PHYSICIAN STATEMENT I saw and evaluated the patient. I reviewed the resident's note and discussed the case with the resident. I agree with the resident's findings and plan as documented. SUBJECTIVE: OBJECTIVE: ASSESSMENT AND PLAN:
== END 2019-01-11 13:19 | disposition left against medical advice (07) | DRG 770 ==
LOC: JER 21:37 → JERBED 01-09 01:26 → J4S 01-09 15:49 → OBSVTOIN 01-11 07:35
PROVIDERS: ADMIT Internal Medicine; ATTEND Internal Medicine
DX: F10.120 Alcohol abuse with intoxication, uncomplicated (principal); N17.9 Acute kidney failure, unspecified; I48.91 Unspecified atrial fibrillation; I95.9 Hypotension, unspecified; E87.6 Hypokalemia; E86.0 Dehydration; E66.9 Obesity, unspecified; I10 Essential (primary) hypertension; Z68.31 Body mass index [BMI] 31.0-31.9, adult; D64.9 Anemia, unspecified; R74.0 Nonspecific elevation of levels of transaminase and lactic acid dehydrogenase [LDH]
CPT/HCPCS: 36415; 80048; 80053; 82550; 82553; 82607; 83540; 83550; 83735; 84132; 84484; 85025; 85044; 93005; 93010; 97116-GP; 97161-GP; 99284-25; G0378; J1644; J7030

== ENCOUNTER 2019-01-11 18:28 | Emergency (ER) | payer OTHER ==
[2019-01-11 20:38] VITALS: TEMP 98.6; BMI 39.4
--- NOTE | 2019-01-11 20:43 | PDOC ---
History of Present Illness - General Chief Complaint: Blood Pressure Problem Stated Complaint: INTOX Time Seen by Provider: 01/11/19 20:40 - History of Present Illness Initial Comments: 63 year old male with PMH of mesothelioma and EtOH abuse presenting intoxicated and stating that " I need a place to rest". Denies any recent EtOH use on initial interview but admitted to some drinking a few hours ago with 2 pints of vodka. He denies any chest pain, headaches, or other symptoms. 01/11/19 21:13 Past History - Past Medical History Allergies/Adverse Reactions: Allergies Allergy/AdvReac Type Severity Reaction Status Date / Time Fish Containing Products Allergy Mild Swelling Verified 01/11/19 20:38 No Known Drug Allergies Allergy Verified 01/11/19 20:38 Home Medications: Ambulatory Orders Metoprolol Tartrate [Lopressor -] 50 mg PO BID #60 tablet 11/22/18 Potassium Chloride [K-Dur -] 20 meq PO BID 01/10/19 Anemia: No Asthma: No Cancer: Yes (mesothelioma lung cancer) Cardiac Disorders: No CVA: No COPD: No CHF: No DVT: No Dementia: No Diabetes: No Dialysis: No GI Disorders: No Disorders: No HTN: Yes (non compliance) Hypercholesterolemia: No Kidney Stones: No Liver Disease: No Psychiatric Problems: Yes (etoh) Seizures: No Thyroid Disease: No Lung CA: No - Surgical History Abdominal Surgery: No Appendectomy: No Cardiac Surgery: No Cholecystectomy: No Lung Surgery: No Neurologic Surgery: No Orthopedic Surgery: No - Family Disease History Family Disease History: CA: Mother - Reproductive History Testicular Surgery: No - Immunization History TDAP Vaccination: Yes Immunization Up to Date: Yes - Suicide/Smoking/Psychosocial Hx Smoking Status: No Smoking History: Never smoked Have you smoked in the past 12 months: No Number of Cigarettes Smoked Daily: 0 If you are a former smoker, when did you quit?: 0 Cigars Per Day: 0 Information on smoking cessation initiated: No 'Breaking Loose' booklet given: 09/22/17 Hx Alcohol Use: No Drug/Substance Use Hx: No Substance Use Type: Alcohol Hx Substance Use Treatment: Yes Review of Systems - Review of Systems Constitutional: No: Chills, Diaphoresis, Fever, Loss of Appetite HEENTM: No: Eye Pain, Blurred Vision Respiratory: No: Cough, Orthopnea, Shortness of Breath Cardiac (ROS): No: Chest Pain, Edema, Irregular Heart Rate ABD/GI: No: Diarrhea, Nausea, Vomiting : No: Burning, Dysuria, Discharge Musculoskeletal: No: Back Pain, Joint Pain, Joint Swelling Integumentary: No: Bruising, Lesions Neurological: No: Headache, Numbness, Paresthesia Hematologic/Lymphatic: No: Anemia, Blood Clots, Easy Bleeding *Physical Exam - Vital Signs Last Vital Signs Temp Pulse Resp BP Pulse Ox 98.6 F 99 H 22 H 69/33 L 100 01/11/19 18:28 01/11/19 18:28 01/11/19 18:28 01/11/19 18:28 01/11/19 18:28 - Physical Exam General Appearance: Yes: Nourished, Appropriately Dressed, Disheveled, Intoxicated. No: Apparent Distress HEENT: positive: EOMI, DOUGLAS, Normal ENT Inspection, Normal Voice Neck: positive: Trachea midline, Normal Thyroid, Supple. negative: Tender, Rigid Respiratory/Chest: positive: Lungs Clear, Normal Breath Sounds. negative: Chest Tender, Respiratory Distress, Accessory Muscle Use Cardiovascular: positive: Regular Rhythm, Regular Rate Gastrointestinal/Abdominal: positive: Normal Bowel Sounds, Soft, Protuberent. negative: Tender, Flat Lymphatic: negative: Adenopathy, Tenderness Musculoskeletal: positive: Normal Inspection. negative: Decreased Range of Motion Extremity: positive: Normal Inspection, Normal Range of Motion. negative: Tender Integumentary: positive: Normal Color, Dry, Warm Neurologic: positive: Fully Oriented, Alert, Normal Mood/Affect Medical Decision Making - Medical Decision Making 63 year old male with PMH of EtOH abuse presenting intoxicated and asking for a place to rest and a sandwich. Denies wanting detox. Deferred lab workup but was OK with us administering 1 L NS. His BP was low on initial intake when he was laying flat on his back but normalized when shifting to his left side. We theorize that his protuberant abdomen was compressing his IVC which was likely tenuous in the setting of high level of EtOH ingestion. Patient was given a sandwich and a juice which he tolerated without issue. Will DC when sober in the AM. 01/11/19 21:16 Patient sober but complaining of some congestion for which we administered saline nebs. 01/12/19 06:20 *DC/Admit/Observation/Transfer Diagnosis at time of Disposition: Acute alcohol intoxication Qualifiers: Complication of substance-induced condition: uncomplicated Qualified Code(s): F10.920 - Alcohol use, unspecified with intoxication, uncomplicated - Discharge Dispostion Disposition: HOME Condition at time of disposition: Improved Decision to Admit order: No - Referrals Referrals: [facility] [Provider Group] - Patient Instructions Printed Discharge Instructions: DI for High Blood Pressure Additional Instructions: Please take your medications as prescribed. Please stop drinking! Please return to the Ed if you have new or worsening symptoms. - Post Discharge Activity
--- NOTE | 2019-01-12 01:08 | PDOC ---
Documentation entered by Serenity Juárez SCRIBE, acting as scribe for Tricia Lugo DO. Tricia Lugo DO: This documentation has been prepared by the Marquita pereira Adrianna, SCRIBE, under my direction and personally reviewed by me in its entirety. I confirm that the documentation accurately reflects all work, treatment, procedures, and medical decision making performed by me. Attending Attestation - Resident Resident Name: Ronald Rizzo - ED Attending Attestation I have performed the following: I have examined & evaluated the patient, The case was reviewed & discussed with the resident, I agree w/resident's findings & plan - HPI HPI: The patient is a 63 year old male with a history of HTN (non-compliant with meds ), Mesothelioma, and ETOH abuse who presents for evaluation of intoxication. The patient endorses EtOH consumption today (approximately 2 pints of vodka), and notes he wants to sleep. Allergies: Fish Surgical History: None reported Social History: EtOH abuse - Physicial Exam PE: Agree with resident exam. - Medical Decision Making 01/12/19 00:42 63-year-old male well known to this department with alcohol intoxication Patient denies additional complaints at this time and states he would like to sleep Plan for reevaluation and DC when clinically sober
[2019-01-12] MEDS ORDERED: SODIUM CHLORIDE FOR INHALATION 3 ML VIAL.NEB IH ONE (05:57)
[2019-01-12 06:40] VITALS: BP 109/65; PULSE 95
== END 2019-01-12 07:05 | disposition home or self-care (01) ==
LOC: JER 18:28
PROC: 3E0F7GC Introduction of Other Therapeutic Substance into Respiratory Tract, Via Natural or Artificial Opening (ICD-10-PCS; principal; 2019-01-11)
DX: F10.220 Alcohol dependence with intoxication, uncomplicated (principal); I10 Essential (primary) hypertension; C45.9 Mesothelioma, unspecified; Z59.0 Homelessness
CPT/HCPCS: 94640; 99282-25

== ENCOUNTER 2019-01-13 12:15 | Inpatient (IN) | payer OTHER ==
[2019-01-13] MEDS ORDERED: FOLIC ACID INJECTION - 1 MG, THIAMINE HCL 100 MG, MULTIVIT INJECTION ADULT 10 ML in SOD... IVPB ONE (13:00)
[2019-01-13] MEDS ORDERED: SODIUM CHLORIDE 0.9% 500 ML INFUS.BAG IV ONE ×2 (13:00→19:51)
--- NOTE | 2019-01-13 13:08 | PDOC ---
History of Present Illness - General Chief Complaint: Blood Pressure Problem Stated Complaint: INTOX Time Seen by Provider: 01/13/19 12:30 History Source: Patient Exam Limitations: Other (see PE. poor historian - unable to participate fully in H&P) - History of Present Illness Initial Comments: 01/13/19 13:01 63 yo M pmh mesothelioma and etoh abuse BIBEMS with low blood pressure. Patient is a poor historian with tangential speech. Complains of mild SOB and chronic back pain. Denies chest pain and abdominal pain. Unclear if he had etoh today, patient states he may have had 1/2 pint of etoh. Interested in detox. pmh: see chart meds: see chart NKDA, allergy to fish Past History - Past Medical History Allergies/Adverse Reactions: Allergies Allergy/AdvReac Type Severity Reaction Status Date / Time Fish Containing Products Allergy Mild Swelling Verified 01/11/19 20:38 No Known Drug Allergies Allergy Verified 01/11/19 20:38 Home Medications: Ambulatory Orders Unobtainable 01/13/19 Anemia: No Asthma: No Cancer: Yes (mesothelioma lung cancer) Cardiac Disorders: No CVA: No COPD: No CHF: No DVT: No Dementia: No Diabetes: No Dialysis: No GI Disorders: No Disorders: No HTN: Yes (non compliance) Hypercholesterolemia: No Kidney Stones: No Liver Disease: No Psychiatric Problems: Yes (etoh) Seizures: No Thyroid Disease: No Lung CA: No - Surgical History Abdominal Surgery: No Appendectomy: No Cardiac Surgery: No Cholecystectomy: No Lung Surgery: No Neurologic Surgery: No Orthopedic Surgery: No - Family Disease History Family Disease History: CA: Mother - Reproductive History Testicular Surgery: No - Immunization History TDAP Vaccination: Yes Immunization Up to Date: Yes - Suicide/Smoking/Psychosocial Hx Smoking Status: No Smoking History: Never smoked Have you smoked in the past 12 months: No Number of Cigarettes Smoked Daily: 0 If you are a former smoker, when did you quit?: 0 Cigars Per Day: 0 Information on smoking cessation initiated: No 'Breaking Loose' booklet given: 09/22/17 Hx Alcohol Use: No Drug/Substance Use Hx: No Substance Use Type: Alcohol Hx Substance Use Treatment: Yes Review of Systems - Review of Systems Able to Perform ROS?: No (see HPI) *Physical Exam - Vital Signs Last Vital Signs Temp Pulse Resp BP Pulse Ox 98.4 F 84 18 84/47 L 91 L 01/13/19 12:22 01/13/19 12:22 01/13/19 12:22 01/13/19 12:22 01/13/19 12:22 - Physical Exam Comments: 01/13/19 13:06 GEN: NAD, laying in bed comfortably. Disheveled. Patient speaking tangentially, often needs to be redirected and often fails to or avoids directly answer questions. Awake, alert, oriented to self and place (knows he's in hospital). HEENT: NC/AT, EOMI, PERRLA CV: S1/S2, RRR, no m/r/g LUNG: CTAB no wheezes, rales, rhonchi. Normal respiratory effort. ABD: soft, ntnd. (+)BS. No pulsatile mass. ED Treatment Course - LABORATORY CBC & Chemistry Diagram: 01/13/19 13:05 01/13/19 13:05 - RADIOLOGY Radiology Studies Ordered: Category Date Time Status CHEST X-RAY PORTABLE* [RAD] Stat Radiology 01/13/19 12:59 Ordered Medical Decision Making - Medical Decision Making 01/13/19 13:08 63 yo M pmh mesothelioma and etoh abuse BIBEMS w/ low BP. Patient unable to participate fully in H&P but endorses mild SOB and chronic back pain. No chest pain or abdominal pain. Patient speaks tangentially. Low BP on exam. DDx - dehydration, ACS, unlikely AAA, AoD, acute bleed. Low BP - cbc, cmp, cardiac, lactate - cxr, ekg - NS and banana bag 01/13/19 14:22 Lactate 3.2 - reassess after fluids complete - 1L NS additional 01/13/19 16:45 repeat vitals reassuring patient resting comfortably f/u lactate dispo 01/13/19 16:51 Patient desaturated on room air down to 70s while talking CTA 01/13/19 17:48 lactate downtrending, 2.4 01/13/19 18:19 Patient adamantly refuses contrast and CT study. We explained why we wanted the scan, why it was important, and the risks of not obtaining the scan. Patient became agitated and continued to refuse despite persistent efforts to convince him of the importance of the scan. - will empirically anticoagulate given persistent hypoxia - will admit to medicine for persistent hypoxia 01/13/19 18:58 spoke to MAR - she will discuss with attending 01/13/19 19:57 Discussed patient with medicine team after they saw him. Team states he was saturating at 95% when they walked him but found him to be orthostatic. Recommended d-dimer and 1L bolus. Will follow. 01/13/19 21:40 Walked patient earlier and had off O2. While patient is laying down he saturates around 85-88%. When patient is sitting upright or standing patient saturates around 92-95%. D-dimer was elevated at 799 - will admit for further evaluation and anticoagulation 01/13/19 23:00 Patient endorsed to MAR - admit under Dr. Lao *DC/Admit/Observation/Transfer Diagnosis at time of Disposition: Hypoxia - Discharge Dispostion Condition at time of disposition: Improved Decision to Admit order: Yes - Referrals - Patient Instructions - Post Discharge Activity
[2019-01-13 13:26] LABS: BASO % 0.6 % (0-2.0); EOS % 1.4 % (0-4.5); HEMATOCRIT 30.2 % (35.4-49); HEMOGLOBIN 9.6 GM/dL (11.7-16.9); LYMPH % 14.3 % (8-40); MCH 27.2 pg (25.7-33.7); MEAN CELL VOLUME 85.1 fl (80-96); MEAN PLT VOLUME 7.7 fl (7.5-11.1); MONO % 10.3 % (3.8-10.2); NEUT % 73.4 % (42.8-82.8); PLATELET COUNT 374 K/MM3 (134-434); RBC 3.55 M/mm3 (4.00-5.60); RDW 22.6 % (11.9-15.9); WHITE BLOOD COUNT 9.5 K/mm3 (4.0-10.0)
[2019-01-13 13:49] LABS: ALBUMIN 2.8 g/dl (3.4-5.0); BILIRUBIN,TOTAL 0.6 mg/dL (0.2-1); BLOOD UREA NITROGEN 13.8 mg/dL (7-18); CALCIUM 7.8 mg/dL (8.5-10.1)
--- NOTE | 2019-01-13 14:47 | PDOC ---
Documentation entered by Nina Rae SCRIBE, acting as scribe for Jamal Rodriges MD. Jamal Rodriges MD: This documentation has been prepared by the hollandibe, Nina Rae SCRIBE, under my direction and personally reviewed by me in its entirety. I confirm that the documentation accurately reflects all work, treatment, procedures, and medical decision making performed by me. Attending Attestation - Resident Resident Name: Chandra Gu - ED Attending Attestation I have performed the following: I have examined & evaluated the patient, The case was reviewed & discussed with the resident, I agree w/resident's findings & plan, Exceptions are as noted - HPI HPI: 01/13/19 12:59 The patient is a 63-year-old male, with a past medical history of mesothelioma, chronic back pain, and EtOH abuse, who was BIBA for intoxication. The patient is not able to provide much additional history. He reports chronic back pain and shortness of breath, but denies any chest pain. The patient denies fevers, chills, nausea, vomiting, diarrhea, or abdominal pain. Allergies: Fish-containing products, NKDA. - Physicial Exam PE: 01/13/19 13:01 GENERAL: Awake, alert, and fully oriented, in no acute distress. HEAD: No signs of trauma EYES: PERRLA, EOMI, sclera anicteric, conjunctiva clear ENT: Auricles normal inspection, hearing grossly normal, nares patent, oropharynx clear without exudates. Moist mucosa NECK: Nontender, no stepoffs, Normal ROM, supple, no lymphadenopathy, JVD, or masses LUNGS: Breath sounds equal, clear to auscultation bilaterally. No wheezes, and no crackles HEART: Regular rate and rhythm, normal S1 and S2, no murmurs, rubs or gallops ABDOMEN: Soft, nontender, normoactive bowel sounds. No guarding, no rebound. No masses EXTREMITIES: Normal range of motion, no edema. No clubbing or cyanosis. No cords, erythema, or tenderness NEUROLOGICAL: Cranial nerves II through XII intact. 5/5 strength and sensation in all extremities, Normal speech, normal gait, normal cerebellar function SKIN: Warm, Dry, normal turgor, no rashes or lesions noted. - Critical Care Time Total Critical Care Time: 60 Critical Care Statement: The care of this patient involved high complexity decision making to prevent further life threatening deterioration of the patient 's condition and/or to evaluate & treat vital organ system(s) failure or risk of failure. - Medical Decision Making 01/13/19 14:51 63 M brought in for intoxication, found to be hypotensive in ED. Pt afebrile, not tachycardic. No clinical signs of infectious process. Possible dehydration. Also mildly hypoxic in ED, but likely 2/2 intoxication. Pt with clear lungs. - Labs, lactate - CXR - IVF - Reassess 01/13/19 18:16 Lactate 3.4, cleared to 2.4 after 2L NS Pt noted to be hypoxic to 80s on RA. CXR clear Given pt's initial hypotension and new severe hypoxia, will need to r/o PE. Will obtain CTA 01/13/19 18:19 Pt refusing IV contrast Will empirically tx for PE at this time with lovenox
[2019-01-13] MEDS ORDERED: SODIUM CHLORIDE 1,000 ML IV STA (14:53)
[2019-01-13 15:44] LABS: ANISOCYTOSIS 1+; MACROCYTOSIS 0; PLATELET ESTIMATE NORMAL
--- NOTE | 2019-01-13 17:17 | EKG ---
Test Reason : Blood Pressure : / mmHG Vent. Rate : 085 BPM Atrial Rate : 085 BPM P-R Int : 168 ms QRS Dur : 100 ms QT Int : 432 ms P-R-T Axes : 012 -30 025 degrees QTc Int : 514 ms POOR DATA QUALITY, INTERPRETATION MAY BE ADVERSELY AFFECTED NORMAL SINUS RHYTHM LEFT AXIS DEVIATION NONSPECIFIC ST ABNORMALITY ABNORMAL ECG WHEN COMPARED WITH ECG OF 09-JAN-2019 07:05, PREMATURE ATRIAL COMPLEXES ARE NO LONGER PRESENT QT HAS LENGTHENED Confirmed by ANGELINA HYLTON MD ([id number]) on 01/13/2019 5:16:46 PM Referred By: Confirmed By:ANGELINA HYLTON MD
[2019-01-13] MEDS ORDERED: ENOXAPARIN NA (PORCINE) 40 MG/0.4 ML DISP.SYRIN SQ ONE (18:27)
[2019-01-13] MEDS ORDERED: ENOXAPARIN NA (PORCINE) 100 MG/1 ML DISP.SYRIN SQ ONE (18:31)
[2019-01-13] MEDS ORDERED: FOLIC ACID 1 MG TABLET (FP) PO ONE (23:01)
[2019-01-13] MEDS ORDERED: POTASSIUM CHLORIDE 20 MEQ PREMIX IVPB 100 ML IVPB ONE (23:07)
--- NOTE | 2019-01-13 23:19 | PN ---
Teaching Attending Note Name of Resident: Brandi Mancia ATTENDING PHYSICIAN STATEMENT I saw and evaluated the patient. I reviewed the resident's note and discussed the case with the resident. I agree with the resident's findings and plan as documented. He is a 63 Y.O M W active Etoh abuse(recent AMA from hospital for intoxication) , Afib, PHTN(LARISA),also sates that he has mezothelioma and has been evaluated by morbid obesity, chronic back pain, initially was brought in for intoxication and his usual chronic back pain and SOB. He states that the SOB and DAMON is chronic for years and he has had cardiac cath for it which he states was negative, no recent change in the symptoms. He states that at baseline he can walk up to 5 miles and gets SOB when walking up hill with no recent change. In the ED he was found to have hypoxia and was admitted for further evaluation. In reviewing his chart this complaint was addressed and he had chest CT about 4 months ago with basilar atelectasia and not much ILD reported at that time. ( CT W/O contrast), during the exam today he is in no distress, talks in full sentences with no complaints, has good air movement and saturating 93% on RA while supine which drops to 85-89% when he sits up and improves when he stands up and stays in 92-95% while walking with no respiratory complaints. States that has had chronic GAYLA edema with no recent trauma to the legs. Bilateral GAYLA edema pitting 2+ up to the knee similar bilaterally. CBCD WBC 9.5 K/mm3 (4.0-10.0) 01/13/19 13:05 RBC 3.55 M/mm3 (4.00-5.60) L 01/13/19 13:05 Hgb 9.6 GM/dL (11.7-16.9) L 01/13/19 13:05 Hct 30.2 % (35.4-49) L 01/13/19 13:05 MCV 85.1 fl (80-96) 01/13/19 13:05 MCHC 32.0 g/dl (32.0-35.9) 01/13/19 13:05 RDW 22.6 % (11.9-15.9) H 01/13/19 13:05 Plt Count 374 K/MM3 (134-434) D 01/13/19 13:05 MPV 7.7 fl (7.5-11.1) 01/13/19 13:05 CMP Sodium 141 mmol/L (136-145) 01/13/19 13:05 Potassium 3.0 mmol/L (3.5-5.1) L 01/13/19 13:05 Chloride 102 mmol/L (98-107) 01/13/19 13:05 Carbon Dioxide 25 mmol/L (21-32) 01/13/19 13:05 Anion Gap 14 MMOL/L (8-16) 01/13/19 13:05 BUN 13.8 mg/dL (7-18) 01/13/19 13:05 Creatinine 1.0 mg/dL (0.55-1.3) 01/13/19 13:05 Random Glucose 98 mg/dL (74-106) 01/13/19 13:05 Calcium 7.8 mg/dL (8.5-10.1) L 01/13/19 13:05 Total Bilirubin 0.6 mg/dL (0.2-1) 01/13/19 13:05 AST 39 U/L (15-37) H 01/13/19 13:05 ALT 38 U/L (13-61) 01/13/19 13:05 Alkaline Phosphatase 101 U/L (45-117) 01/13/19 13:05 Total Protein 6.0 g/dl (6.4-8.2) L 01/13/19 13:05 Albumin 2.8 g/dl (3.4-5.0) L 01/13/19 13:05 CARDIAC ENZYMES Creatine Kinase 107 U/L (26-308) 01/13/19 13:05 Troponin I < 0.02 ng/ml (0.00-0.05) 01/13/19 13:05 Chronic hypoxia with Platypnea-Orthodeoxia: will W/U for shunting. last TTE with no wall defect, will get V/Q scan. does not need O2 supplementation at this time unless O2<90% Etoh withdrawal:will start on librium 50 mg BID at this time and will monitor, CIWA score, Ativan as needed Hypoalbuminemia with Nl ast/ alt and PT/INR and Nl PLT most likely protein malnutrition in the obese patient , will ask nutrition consult Etoh abuse: is willing to go to rehab again counseling done HX of aFIB With PHTN: will need sleep studies to confirm LARISA and will need to be on treatmetn for prevention of further Agib episodes, AC was not initated last time due to Etoh abuse and HX of frequent falls Hypokalemia: likely due to decreased PO intake and most likely hypoMg, will replete both and monitor considering that he has hx of Afib Positional hypotension: will hydrate that patient and will review his medication , will educate him about the importance of slow changes in position to prevent falls. Anemia:Microcytic polymorphic, will send retic count, Iron studies, B12, Folate levels rest of the management per HS note
[2019-01-13] MEDS: KCL 10 MEQ IVPB 10 MEQ/100 ML INFUS.BAG IVPB SCH (23:35)
[2019-01-14] MEDS ORDERED: KCL 10 MEQ IVPB 10 MEQ/100 ML INFUS.BAG IVPB ONE (00:24)
[2019-01-14] MEDS: KCL 10 MEQ IVPB 10 MEQ/100 ML INFUS.BAG IVPB SCH ×2 (00:25→02:09)
[2019-01-14] MEDS ORDERED: chlordiazePOXIDE HCL 25 MG CAPSULE PO PRN (01:58)
--- NOTE | 2019-01-14 02:34 | HP ---
CHIEF COMPLAINT: Intoxication PCP: None HISTORY OF PRESENT ILLNESS: Patient is a 63 year old male with a PMH of mesothelioma lung cancer, EtOH abuse (recent AMA from hospitalization for intoxication), HTN (not compliant with medications) who presents with intoxication and SOB. Pt is poor historian. Pt endorses SOB and DAMON is chronic for several years. At baseline, he can walk up to 5 miles and gets SOB when walking up hill. In the ED, he was found to have hypoxia and was admitted for further evaluation. Per chart review, pt's hypoxia has been evaluated in the past and chest CT 4 months ago showed basilar atelectasia with minimal ILD. During evaluation today, pt is in no acute distress, talks in full sentences with no complaints, saturation at 93% on RA while supine, drops to 85% upon siting up, and improves when he stands and walks to 93-95% with no respiratory complaints. Pt endorses chronic leg edema, no recent trauma. He reports that he drinks 1-2 pints of vodka a day. Last drink was several hours ago. He denies history of withdrawal seizures, hallucinations, or intubation, but endorses tremors in the past. Recent Travel: denies PAST MEDICAL HISTORY: mesothelioma lung cancer, EtOH abuse, and HTN PAST SURGICAL HISTORY: denies Social History: Smoking: denies Alcohol: 1-2 pints per da Drugs: denies Family History: not significant for HTN, DM, cardiac disease, cancer Allergies Fish Containing Products Allergy (Mild, Verified 01/11/19 20:38) Swelling No Known Drug Allergies Allergy (Verified 01/11/19 20:38) HOME MEDICATIONS: Home Medications Medication Instructions Recorded Unobtainable 01/13/19 REVIEW OF SYSTEMS CONSTITUTIONAL: Absent: fever, chills, diaphoresis, generalized weakness, malaise, loss of appetite, weight change HEENT: Absent: rhinorrhea, nasal congestion, throat pain, throat swelling, difficulty swallowing, mouth swelling, ear pain, eye pain, visual changes CARDIOVASCULAR: Absent: chest pain, syncope, palpitations, irregular heart rate, lightheadedness , peripheral edema RESPIRATORY: chronic shortness of breath, dyspnea with exertion Absent: cough, orthopnea, wheezing, stridor, hemoptysis GASTROINTESTINAL: Absent: abdominal pain, abdominal distension, nausea, vomiting, diarrhea, constipation, melena, hematochezia GENITOURINARY: Absent: dysuria, frequency, urgency, hesitancy, hematuria, flank pain, genital pain MUSCULOSKELETAL: chronic back pain Absent: myalgia, arthralgia, joint swelling, neck pain SKIN: Absent: rash, itching, pallor HEMATOLOGIC/IMMUNOLOGIC: Absent: easy bleeding, easy bruising, lymphadenopathy, frequent infections ENDOCRINE: Absent: unexplained weight gain, unexplained weight loss, heat intolerance, cold intolerance NEUROLOGIC: Absent: headache, focal weakness or paresthesias, dizziness, unsteady gait, seizure, mental status changes, bladder or bowel incontinence PSYCHIATRIC: Absent: anxiety, depression, suicidal or homicidal ideation, hallucinations. PHYSICAL EXAMINATION Vital Signs - 24 hr 01/13/19 01/13/19 01/13/19 12:22 14:28 16:32 Temperature 98.4 F 98.4 F 98.5 F Pulse Rate 84 Pulse Rate [ 82 89 Right Radial] Respiratory 18 19 19 Rate Blood Pressure 84/47 L Blood Pressure 81/52 L 115/78 [Left Arm] O2 Sat by Pulse 91 L 93 L 100 Oximetry (%) 01/13/19 01/14/19 19:51 00:22 Temperature 98.7 F Pulse Rate Pulse Rate [ 112 H 101 H Right Radial] Respiratory 22 H Rate Blood Pressure Blood Pressure 124/84 117/79 [Left Arm] O2 Sat by Pulse 88 L 91 L Oximetry (%) GENERAL: Awake, alert, and fully oriented, in no acute distress. Slurred, tangential speech. HEAD: Normal with no signs of trauma. EYES: Pupils equal, round and reactive to light, extraocular movements intact, sclera anicteric, conjunctiva clear. No lid lag. EARS, NOSE, THROAT: Ears normal, nares patent, oropharynx clear without exudates. Moist mucous membranes. NECK: Normal range of motion, supple without lymphadenopathy, JVD, or masses. LUNGS: Breath sounds equal, clear to auscultation bilaterally. No wheezes, and no crackles. No accessory muscle use. Good air entry HEART: Regular rate and rhythm, normal S1 and S2 without murmur, rub or gallop. ABDOMEN: Soft, distended, nontender, not distended, normoactive bowel sounds, no guarding, no rebound, no masses. No hepatomegaly or splenomegaly. MUSCULOSKELETAL: Normal range of motion at all joints. No bony deformities or tenderness. No CVA tenderness. UPPER EXTREMITIES: 2+ pulses, warm, well-perfused. No cyanosis. No clubbing. No peripheral edema. LOWER EXTREMITIES: 2+ pulses, warm, well-perfused. + Calf tenderness. 3+ pitting edema. NEUROLOGICAL: Cranial nerves II-XII intact. Normal speech. Steady gait. PSYCHIATRIC: Tangential speech. SKIN: Warm, dry, normal turgor, no rashes or lesions noted, normal capillary refill. Laboratory Results - last 24 hr CBC, BMP 01/13/19 13:05 01/13/19 13:05 Hepatic Panel Total Bilirubin 0.6 mg/dL (0.2-1) 01/13/19 13:05 AST 39 U/L (15-37) H 01/13/19 13:05 ALT 38 U/L (13-61) 01/13/19 13:05 Alkaline Phosphatase 101 U/L (45-117) 01/13/19 13:05 Albumin 2.8 g/dl (3.4-5.0) L 01/13/19 13:05 ASSESSMENT/PLAN: Patient is a 63 year old male with a PMH of mesothelioma lung cancer, EtOH abuse (recent AMA from hospitalization for intoxication), HTN (not compliant with medications) who presents with intoxication and SOB. #Chronic hypoxia F/u CT chest for shunting Consider V/Q scan if pt refuses CT Does not need O2 supplementation at this time unless O2<90% #Alcohol withdrawal Start on librium protocol, 50mg BID CIWA score Q2H, monitor for withdrawal symptoms Ativan prn Thiamine 100mg, folate 1mg daily #Hypoalbuminemia Normal AST/ALT, PT/INR, plt Likely protein malnutrition in morbid obesity Consider nutrition consult #Anemia, chronic Microcytic polymorphic, likely 2/2 malnutrition F/u retic count, iron studies, B12, folate level #FEN Regular diet #DVT ppx Lovenox 40mg #Dispo Monitor on med-surg Discuss detox program upon discharge Visit type - Emergency Visit Emergency Visit: Yes ED Registration Date: 01/13/19 Care time: The patient presented to the Emergency Department on the above date and was hospitalized for further evaluation of their emergent condition. - New Patient This patient is new to me today: Yes Date on this admission: 01/14/19 - Critical Care Critical Care patient: No ATTENDING PHYSICIAN STATEMENT I saw and evaluated the patient. I reviewed the resident's note and discussed the case with the resident. I agree with the resident's findings and plan as documented. SUBJECTIVE: OBJECTIVE: ASSESSMENT AND PLAN:
[2019-01-14 02:35] VITALS: BMI 35.7
[2019-01-14] MEDS: chlordiazePOXIDE HCL 25 MG CAPSULE PO SCH ×4 (05:40→22:41)
--- NOTE | 2019-01-14 07:02 | DS ---
Physical Exam: SUBJECTIVE: Patient refusing any treatment and physical exam. Patient AMA'd. OBJECTIVE: Vital Signs Period Temp Pulse Resp BP Sys/Jang Pulse Ox Last 24 Hr 98 F-99 F 82-112 18-22 81-173/47-96 88-100 PHYSICAL EXAM LABS Laboratory Results - last 24 hr 01/13/19 01/13/19 01/13/19 13:05 13:05 13:05 WBC 9.5 RBC 3.55 L Hgb 9.6 L Hct 30.2 L MCV 85.1 MCH 27.2 MCHC 32.0 RDW 22.6 H Plt Count 374 D MPV 7.7 Absolute Neuts (auto) 7.0 Neutrophils % 73.4 Lymphocytes % 14.3 D Monocytes % 10.3 H Eosinophils % 1.4 Basophils % 0.6 Nucleated RBC % 0 Hypochromia 0 Platelet Estimate Normal Polychromasia 1+ Poikilocytosis 0 Anisocytosis 1+ Microcytosis 1+ Macrocytosis 0 D-Dimer Sodium 141 Potassium 3.0 L Chloride 102 Carbon Dioxide 25 Anion Gap 14 BUN 13.8 Creatinine 1.0 Est GFR (CKD-EPI)AfAm 92.42 Est GFR (CKD-EPI)NonAf 79.75 Random Glucose 98 Lactic Acid Calcium 7.8 L Total Bilirubin 0.6 AST 39 H ALT 38 Alkaline Phosphatase 101 Creatine Kinase 107 Troponin I < 0.02 Total Protein 6.0 L Albumin 2.8 L 01/13/19 01/13/19 01/13/19 13:05 16:31 20:12 WBC RBC Hgb Hct MCV MCH MCHC RDW Plt Count MPV Absolute Neuts (auto) Neutrophils % Lymphocytes % Monocytes % Eosinophils % Basophils % Nucleated RBC % Hypochromia Platelet Estimate Polychromasia Poikilocytosis Anisocytosis Microcytosis Macrocytosis D-Dimer 799 H Sodium Potassium Chloride Carbon Dioxide Anion Gap BUN Creatinine Est GFR (CKD-EPI)AfAm Est GFR (CKD-EPI)NonAf Random Glucose Lactic Acid 3.4 H* 2.4 H* Calcium Total Bilirubin AST ALT Alkaline Phosphatase Creatine Kinase Troponin I Total Protein Albumin HOSPITAL COURSE: Date of Admission:01/13/19 This is a 63 y/o M w PMH of HTN, Mesothelioma, ESBL UA hx, ETOH abuse, atrial fibrillation (seen 08/2018 by cardio, normal EF on TTE, deemed not a safe candidate for AC) with multiple visits to the ED, who was admitted for hypokalemia and alcohol intoxication. Pt refused management for his hypokalemia and alcohol intoxication. Pt is very uncooperative and refuses to be examined. EKG showed no change from prior one and no signs of arrythmia. Pt was explained the consequences of AMA, however pt decides to AMA. Date of Discharge: 01/14/19 Discharge Summary Reason For Visit: HYPOXIA Current Active Problems Hypoxia (Acute) Condition: Improved - Instructions - Home Medications Comprehensive Discharge Medication List: Ambulatory Orders Unobtainable 01/13/19 ATTENDING PHYSICIAN STATEMENT I saw and evaluated the patient. I reviewed the resident's note and discussed the case with the resident. I agree with the resident's findings and plan as documented. SUBJECTIVE: OBJECTIVE: ASSESSMENT AND PLAN:
[2019-01-14 08:27] LABS: ALBUMIN 2.5 g/dl (3.4-5.0); BILIRUBIN,TOTAL 0.7 mg/dL (0.2-1); CALCIUM 7.6 mg/dL (8.5-10.1); CREATININE 0.6 mg/dL (0.55-1.3); MAGNESIUM 1.3 mg/dL (1.8-2.4); PHOSPHOROUS 2.6 mg/dL (2.5-4.9); POTASSIUM 3.3 mmol/L (3.5-5.1); TOT PROT 5.5 g/dl (6.4-8.2)
[2019-01-14 08:28] LABS: BASO % 0.7 % (0-2.0); HEMATOCRIT 29.5 % (35.4-49); HEMOGLOBIN 9.5 GM/dL (11.7-16.9); LYMPH % 17.7 % (8-40); MCH 27.5 pg (25.7-33.7); MCHC 32.4 g/dl (32.0-35.9); MEAN PLT VOLUME 7.9 fl (7.5-11.1); NEUT % 72.6 % (42.8-82.8); PLATELET COUNT 311 K/MM3 (134-434); RBC 3.47 M/mm3 (4.00-5.60); RDW 22.2 % (11.9-15.9)
[2019-01-14] MEDS ORDERED: ENOXAPARIN NA (PORCINE) 40 MG/0.4 ML DISP.SYRIN SQ SCH (10:00)
[2019-01-14] MEDS ORDERED: THIAMINE HCL 100 MG TABLET (FP) PO SCH (10:00)
[2019-01-14] MEDS ORDERED: FOLIC ACID 1 MG TABLET (FP) PO SCH (10:00)
[2019-01-14] MEDS ORDERED: PT OWN MED DRAWER 7, Y5N ONE (10:37)
--- NOTE | 2019-01-14 15:18 | PN ---
Physical Exam: SUBJECTIVE: Patient seen and examined by the bedside, AOx3 OBJECTIVE: Vital Signs Period Temp Pulse Resp BP Sys/Jang Pulse Ox Last 24 Hr 98 F-99 F 89-112 19-22 115-173/78-96 88-100 GENERAL: The patient is awake, alert, and fully oriented, in no acute distress. HEAD: Normal with no signs of trauma. EYES: PERRL, extraocular movements intact, sclera anicteric, conjunctiva clear. No ptosis. ENT: Ears normal, nares patent, oropharynx clear without exudates, moist mucous membranes. NECK: Trachea midline, full range of motion, supple. LUNGS: Breath sounds equal, clear to auscultation bilaterally, no wheezes, no crackles, no accessory muscle use. HEART: Regular rate and rhythm, S1, S2 without murmur, rub or gallop. ABDOMEN: Soft, nontender, nondistended, normoactive bowel sounds, no guarding, no rebound, no hepatosplenomegaly, no masses. EXTREMITIES: 2+ pulses, warm, well-perfused, no edema. NEUROLOGICAL: Cranial nerves II through XII grossly intact. Normal speech, gait not observed. PSYCH: Slightly agitated. SKIN: Warm, dry, normal turgor, no rashes or lesions noted Laboratory Results - last 24 hr 01/13/19 01/13/19 01/13/19 13:05 16:31 20:12 WBC RBC Hgb Hct MCV MCH MCHC RDW Plt Count MPV Absolute Neuts (auto) Neutrophils % Lymphocytes % Monocytes % Eosinophils % Basophils % Nucleated RBC % Hypochromia 0 Platelet Estimate Normal Polychromasia 1+ Poikilocytosis 0 Anisocytosis 1+ Microcytosis 1+ Macrocytosis 0 D-Dimer 799 H Sodium Potassium Chloride Carbon Dioxide Anion Gap BUN Creatinine Est GFR (CKD-EPI)AfAm Est GFR (CKD-EPI)NonAf Random Glucose Lactic Acid 2.4 H* Calcium Phosphorus Magnesium Total Bilirubin AST ALT Alkaline Phosphatase Total Protein Albumin 01/14/19 01/14/19 01/14/19 05:19 05:19 08:54 WBC 7.0 RBC 3.47 L Hgb 9.5 L Hct 29.5 L MCV 85.0 MCH 27.5 MCHC 32.4 RDW 22.2 H Plt Count 311 MPV 7.9 Absolute Neuts (auto) 5.1 Neutrophils % 72.6 Lymphocytes % 17.7 D Monocytes % 7.0 Eosinophils % 2.0 Basophils % 0.7 Nucleated RBC % 0 Hypochromia Platelet Estimate Polychromasia Poikilocytosis Anisocytosis Microcytosis Macrocytosis D-Dimer Sodium 143 Potassium 3.3 L Chloride 108 H Carbon Dioxide 27 Anion Gap 8 BUN 9.0 Creatinine 0.6 Est GFR (CKD-EPI)AfAm 124.02 Est GFR (CKD-EPI)NonAf 107.00 Random Glucose 73 L Lactic Acid 1.1 Calcium 7.6 L Phosphorus 2.6 Magnesium 1.3 L Total Bilirubin 0.7 AST 37 ALT 34 Alkaline Phosphatase 97 Total Protein 5.5 L Albumin 2.5 L Active Medications Generic Name Dose Route Start Last Admin Trade Name Freq PRN Reason Stop Dose Admin Chlordiazepoxide HCl 10 mg 01/17/19 05:00 Librium - PO 01/17/19 23:01 [id number] CAREY Chlordiazepoxide HCl 10 mg 01/18/19 05:00 Librium - PO 01/18/19 17:01 Q12H CAREY Chlordiazepoxide HCl 10 mg 01/17/19 00:00 Librium - PO 01/18/19 00:00 Q4H PRN WITHDRAWAL(CONT SUBST) Chlordiazepoxide HCl 10 mg 01/19/19 05:00 Librium - PO 01/19/19 05:01 ONCE@0500 ONE Chlordiazepoxide HCl 50 mg 01/14/19 05:00 01/14/19 11:00 Librium - PO 01/15/19 23:01 50 mg [id number] CAREY Administration Chlordiazepoxide HCl 25 mg 01/16/19 05:00 Librium - PO 01/16/19 23:01 [id number] CAREY Chlordiazepoxide HCl 25 mg 01/14/19 01:58 01/14/19 02:13 Librium - PO 01/16/19 23:59 25 mg Q4H PRN Administration WITHDRAWAL(CONT SUBST) Enoxaparin Sodium 40 mg 01/14/19 10:00 01/14/19 11:00 Lovenox - SQ 40 mg DAILY CAREY Administration Folic Acid 1 mg 01/14/19 10:00 01/14/19 11:01 Folic Acid - PO 1 mg DAILY CAREY Administration Thiamine HCl 100 mg 01/14/19 10:00 01/14/19 11:01 Vitamin B1 - PO 100 mg DAILY CAREY Administration ASSESSMENT/PLAN: 63 yo M with PMH of Alcohol abuse (recent AMA 01/12), mesothelioma, and HTN (non compliant). Presented to the ER with intoxication and SOB. Complains of SOB & DAMON for several years, at baseline can walk up to 5 miles and gets SOB when walking up hill. In the ED, he was found to have hypoxia (88-91 O2) and was admitted for further evaluation. Had CT 4 months ago showed basilar atelectasia with minimal ILD. During evaluation today, pt is in no acute distress, talks in full sentences with no complaints, saturation at 93% on RA while supine, drops to 85% upon siting up, and improves when he stands and walks to 93-95% with no respiratory complaints. Pt endorses chronic leg edema, no recent trauma. He reports that he drinks 1-2 pints of vodka a day. Last drink was several hours ago. He denies history of withdrawal seizures, hallucinations, or intubation, but endorses tremors in the past. #Chronic hypoxia -CXR no congestion -93% O2 on room air, 97, 98% on 2L NC #Alcohol withdrawal -Start on librium protocol, 50mg BID -Monitor for withdrawal symptoms -Thiamine 100mg, folate 1mg daily #Hypoalbuminemia -Normal AST/ALT, PT/INR, plt -Likely protein malnutrition due to morbid obesity #Anemia, chronic -Microcytic polymorphic, likely malnutrition -Follow retic count, iron studies, B12, folate level #FEN -Regular diet #DVT ppx -Lovenox 40mg #Dispo -Monitor on med-surg -Discuss detox Visit type - Emergency Visit Emergency Visit: Yes ED Registration Date: 01/13/19 Care time: The patient presented to the Emergency Department on the above date and was hospitalized for further evaluation of their emergent condition. - New Patient This patient is new to me today: Yes Date on this admission: 01/14/19 - Critical Care Critical Care patient: No - Discharge Referral Referred to [facility] Med P.C.: No ATTENDING PHYSICIAN STATEMENT I saw and evaluated the patient. I reviewed the resident's note and discussed the case with the resident. I agree with the resident's findings and plan as documented. SUBJECTIVE: OBJECTIVE: ASSESSMENT AND PLAN:
--- NOTE | 2019-01-14 17:49 | PN ---
Teaching Attending Note Name of Resident: Isaías Downs ATTENDING PHYSICIAN STATEMENT I saw and evaluated the patient. I reviewed the resident's note and discussed the case with the resident. I agree with the resident's findings and plan as documented. SUBJECTIVE: Patient is comfortable with no acute distress. In the ED, patient was found to have hypoxia (88-91 O2) and was admitted for further evaluation. OBJECTIVE: Vital Signs Temperature 99 F 01/14/19 05:45 Pulse Rate 103 H 01/14/19 05:45 Respiratory Rate 20 01/14/19 05:45 Blood Pressure 155/96 01/14/19 05:45 O2 Sat by Pulse Oximetry (%) 91 L 01/14/19 00:22 GENERAL: The patient is awake, alert, and fully oriented, in no acute distress. HEAD: Normal with no signs of trauma. EYES: PERRL, extraocular movements intact, sclera anicteric, conjunctiva clear. ENT: Ears normal, oropharynx clear without exudates, moist mucous membranes. NECK: Trachea midline, full range of motion, supple. LUNGS: Breath sounds equal, clear to auscultation bilaterally, no wheezes, no crackles, no accessory muscle use. HEART: tachycardic , S1, S2 without murmur, rub or gallop. ABDOMEN: Soft, NT,ND, normoactive bowel sounds, no guarding, no rebound, no hepatosplenomegaly, no masses. EXTREMITIES: 2+ pulses, warm, well-perfused, no edema. NEUROLOGICAL: Cranial nerves II through XII grossly intact. Normal speech, gait not observed. PSYCH: Normal mood, normal affect. SKIN: Warm, dry, normal turgor, no rashes or lesions noted CBCD WBC 7.0 K/mm3 (4.0-10.0) 01/14/19 05:19 RBC 3.47 M/mm3 (4.00-5.60) L 01/14/19 05:19 Hgb 9.5 GM/dL (11.7-16.9) L 01/14/19 05:19 Hct 29.5 % (35.4-49) L 01/14/19 05:19 MCV 85.0 fl (80-96) 01/14/19 05:19 MCHC 32.4 g/dl (32.0-35.9) 08/02/19 05:19 RDW 22.2 % (11.9-15.9) H 01/14/19 05:19 Plt Count 311 K/MM3 (134-434) 01/14/19 05:19 MPV 7.9 fl (7.5-11.1) 01/14/19 05:19 CMP Sodium 143 mmol/L (136-145) 01/14/19 05:19 Potassium 3.3 mmol/L (3.5-5.1) L 01/14/19 05:19 Chloride 108 mmol/L (98-107) H 01/14/19 05:19 Carbon Dioxide 27 mmol/L (21-32) 01/14/19 05:19 Anion Gap 8 MMOL/L (8-16) 01/14/19 05:19 BUN 9.0 mg/dL (7-18) 01/14/19 05:19 Creatinine 0.6 mg/dL (0.55-1.3) 01/14/19 05:19 Random Glucose 73 mg/dL (74-106) L 01/14/19 05:19 Calcium 7.6 mg/dL (8.5-10.1) L 01/14/19 05:19 Total Bilirubin 0.7 mg/dL (0.2-1) 01/14/19 05:19 AST 37 U/L (15-37) 01/14/19 05:19 ALT 34 U/L (13-61) 01/14/19 05:19 Alkaline Phosphatase 97 U/L (45-117) 01/14/19 05:19 Total Protein 5.5 g/dl (6.4-8.2) L 01/14/19 05:19 Albumin 2.5 g/dl (3.4-5.0) L 01/14/19 05:19 CARDIAC ENZYMES Creatine Kinase 107 U/L (26-308) 01/13/19 13:05 Troponin I < 0.02 ng/ml (0.00-0.05) 01/13/19 13:05 Current Medications Generic Name Dose Route Start Last Admin Trade Name Freq PRN Reason Stop Dose Admin Chlordiazepoxide HCl 10 mg 01/17/19 05:00 Librium - PO 01/17/19 23:01 [id number] CAREY Chlordiazepoxide HCl 10 mg 01/18/19 05:00 Librium - PO 01/18/19 17:01 Q12H CAREY Chlordiazepoxide HCl 10 mg 01/17/19 00:00 Librium - PO 01/18/19 00:00 Q4H PRN WITHDRAWAL(CONT SUBST) Chlordiazepoxide HCl 10 mg 01/19/19 05:00 Librium - PO 01/19/19 05:01 ONCE@0500 ONE Chlordiazepoxide HCl 50 mg 01/14/19 05:00 01/14/19 17:00 Librium - PO 01/15/19 23:01 50 mg [id number] CAREY Administration Chlordiazepoxide HCl 25 mg 01/16/19 05:00 Librium - PO 01/16/19 23:01 [id number] CAREY Chlordiazepoxide HCl 25 mg 01/14/19 01:58 01/14/19 02:13 Librium - PO 01/16/19 23:59 25 mg Q4H PRN Administration WITHDRAWAL(CONT SUBST) Enoxaparin Sodium 40 mg 01/14/19 10:00 01/14/19 11:00 Lovenox - SQ 40 mg DAILY CAREY Administration Folic Acid 1 mg 01/14/19 10:00 01/14/19 11:01 Folic Acid - PO 1 mg DAILY CAREY Administration Thiamine HCl 100 mg 01/14/19 10:00 01/14/19 11:01 Vitamin B1 - PO 100 mg DAILY CAREY Administration Home Medications Medication Instructions Recorded Unobtainable 01/13/[address]: basilar atelectasia with minimal ILD. ASSESSMENT AND PLAN: Patient is a 63yo male with PMHx of Alcohol abuse (recent AMA 01/12), mesothelioma, and HTN (non compliant). presented with with shortness of breath. #Acute over chronic hypoxia, on 2l saturating 98% on 2L NC #Alcohol withdrawal on Librium protocol, thiamine , folic acid continue #Anemia of chronic disease; Follow retic count, iron studies, B12, folate level #Hypoalbuminemia: due to malnutrition , patient is homeless DVT Px: Lovenox
[2019-01-15] MEDS: chlordiazePOXIDE HCL 25 MG CAPSULE PO SCH (05:29)
[2019-01-15 06:31] VITALS: PULSE 88
[2019-01-15 07:01] VITALS: BP 160/57; TEMP 99.8
[2019-01-15 08:24] LABS: HEMATOCRIT 31.6 % (35.4-49); HEMOGLOBIN 10.2 GM/dL (11.7-16.9); MCH 27.4 pg (25.7-33.7); MCHC 32.3 g/dl (32.0-35.9); MEAN CELL VOLUME 84.9 fl (80-96); MEAN PLT VOLUME 7.8 fl (7.5-11.1); PLATELET COUNT 330 K/MM3 (134-434); RBC 3.73 M/mm3 (4.00-5.60); RDW 21.7 % (11.9-15.9); WHITE BLOOD COUNT 6.2 K/mm3 (4.0-10.0)
[2019-01-15 08:43] LABS: ALBUMIN 2.6 g/dl (3.4-5.0); BILIRUBIN,TOTAL 0.6 mg/dL (0.2-1); BLOOD UREA NITROGEN 4.6 mg/dL (7-18); CALCIUM 8.2 mg/dL (8.5-10.1); CREATININE 0.5 mg/dL (0.55-1.3); POTASSIUM 3.3 mmol/L (3.5-5.1); TOT PROT 5.8 g/dl (6.4-8.2)
--- NOTE | 2019-01-15 10:52 | DS ---
Physical Exam: SUBJECTIVE: Patient seen and examined Patient signed AMA , refused to be seen. Patient has a hx of signing AMA , patient is a frequent flyer. and every time signs against medial advice. The minute he feels well, leaves the hospital AMA. OBJECTIVE: Vital Signs Temperature 99.8 F H 01/15/19 06:59 Pulse Rate 88 01/15/19 06:59 Respiratory Rate 20 01/15/19 06:59 Blood Pressure 160/57 L 01/15/19 06:59 O2 Sat by Pulse Oximetry (%) 93 L 01/14/19 21:00 Laboratory Results - last 24 hr 01/15/19 01/15/19 07:30 07:30 WBC 6.2 RBC 3.73 L Hgb 10.2 L Hct 31.6 L MCV 84.9 MCH 27.4 MCHC 32.3 RDW 21.7 H Plt Count 330 MPV 7.8 Sodium 144 Potassium 3.3 L Chloride 106 Carbon Dioxide 28 Anion Gap 9 BUN 4.6 L Creatinine 0.5 L Est GFR (CKD-EPI)AfAm 133.67 Est GFR (CKD-EPI)NonAf 115.33 Random Glucose 81 Calcium 8.2 L Total Bilirubin 0.6 AST 34 ALT 31 Alkaline Phosphatase 104 Total Protein 5.8 L Albumin 2.6 L HOSPITAL COURSE: Date of Admission:01/13/19 Date of Discharge: 01/15/19 Minutes to complete discharge: 15 Discharge Summary Reason For Visit: HYPOXIA Condition: Improved - Instructions Disposition: AGAINST MEDICAL ADVICE - Home Medications Comprehensive Discharge Medication List: Ambulatory Orders Unobtainable 01/13/19 This patient is new to me today: No Emergency Visit: Yes ED Registration Date: 01/13/19 Care time: The patient presented to the Emergency Department on the above date and was hospitalized for further evaluation of their emergent condition. Critical Care patient: No - Discharge Referral Referred to [facility] Med [facility] No
[2019-01-16] MEDS ORDERED: chlordiazePOXIDE HCL 25 MG CAPSULE PO SCH (05:00)
[2019-01-17] MEDS ORDERED: chlordiazePOXIDE HCL 10 MG CAPSULE PO PRN
[2019-01-17] MEDS ORDERED: chlordiazePOXIDE HCL 10 MG CAPSULE PO SCH (05:00)
[2019-01-18] MEDS ORDERED: chlordiazePOXIDE HCL 10 MG CAPSULE PO SCH (05:00)
[2019-01-19] MEDS ORDERED: chlordiazePOXIDE HCL 10 MG CAPSULE PO ONE (05:00)
== END 2019-01-15 10:33 | disposition left against medical advice (07) | DRG 770 ==
LOC: JER 12:15 → JERBED 22:58 → J6S 01-14 01:24
PROVIDERS: ADMIT Internal Medicine; ATTEND Internal Medicine
DX: F10.230 Alcohol dependence with withdrawal, uncomplicated (principal); I95.9 Hypotension, unspecified; I48.91 Unspecified atrial fibrillation; I27.20 Pulmonary hypertension, unspecified; G47.33 Obstructive sleep apnea (adult) (pediatric); M54.9 Dorsalgia, unspecified; F10.220 Alcohol dependence with intoxication, uncomplicated; E88.09 Other disorders of plasma-protein metabolism, not elsewhere classified; D50.9 Iron deficiency anemia, unspecified; E87.6 Hypokalemia; E83.42 Hypomagnesemia; I10 Essential (primary) hypertension; Z91.14 Patient's other noncompliance with medication regimen; E46 Unspecified protein-calorie malnutrition; D63.8 Anemia in other chronic diseases classified elsewhere; Z59.0 Homelessness; R09.02 Hypoxemia; E66.01 Morbid (severe) obesity due to excess calories; Z68.35 Body mass index [BMI] 35.0-35.9, adult
CPT/HCPCS: 36415; 71045-TC-FY; 80053; 82550; 83605; 83735; 84100; 84484; 85025; 85027; 85379; 93005; 93010; 94640; 99282-25; 99285-25; J7030

== ENCOUNTER 2019-01-24 11:54 | Emergency (ER) | payer OTHER ==
[2019-01-24 12:11] VITALS: BMI 33.0
--- NOTE | 2019-01-24 13:34 | PDOC ---
History of Present Illness - General Chief Complaint: Alcohol intoxication Stated Complaint: INTOXICATION Time Seen by Provider: 01/24/19 13:34 History Source: Patient Exam Limitations: Intoxication - History of Present Illness Initial Comments: 01/24/19 14:42 64M w/ pmh of mesothelioma, chronic EtOH usage presents intoxicated, has complaint of lower back pain, present for 2mo. Denies trauma 2mo prior. Denies GARCIA, SOB, CP, abdominal pain. Endorses drinking a pint of Vodka this morning. Expresses desire to sleep. History is limited due to possible acute intoxication. Has history of T12 vertebral body fracture. Past History - Travel Traveled outside of the country in the last 30 days: No Close contact w/someone who was outside of country & ill: No - Past Medical History Allergies/Adverse Reactions: Allergies Allergy/AdvReac Type Severity Reaction Status Date / Time Fish Containing Products Allergy Mild Swelling Verified 01/24/19 12:08 No Known Drug Allergies Allergy Verified 01/24/19 12:08 Home Medications: Ambulatory Orders Unobtainable 01/13/19 Anemia: No Asthma: No Cancer: Yes (mesothelioma lung cancer) Cardiac Disorders: No CVA: No COPD: No CHF: No DVT: No Dementia: No Diabetes: No Dialysis: No GI Disorders: No Disorders: No HTN: Yes (non compliance) Hypercholesterolemia: No Kidney Stones: No Liver Disease: No Psychiatric Problems: Yes (etoh) Seizures: No Thyroid Disease: No Lung CA: No - Surgical History Abdominal Surgery: No Appendectomy: No Cardiac Surgery: No Cholecystectomy: No Lung Surgery: No Neurologic Surgery: No Orthopedic Surgery: No - Family Disease History Family Disease History: CA: Mother - Reproductive History Testicular Surgery: No - Immunization History TDAP Vaccination: Yes Immunization Up to Date: Yes - Suicide/Smoking/Psychosocial Hx Smoking Status: No Smoking History: Current some day smoker Have you smoked in the past 12 months: No Number of Cigarettes Smoked Daily: 0 If you are a former smoker, when did you quit?: 0 Cigars Per Day: 0 Information on smoking cessation initiated: No 'Breaking Loose' booklet given: 09/22/17 Hx Alcohol Use: Yes Drug/Substance Use Hx: No Substance Use Type: Alcohol (vodka 1pint daily) Hx Substance Use Treatment: Yes Review of Systems - Review of Systems Able to Perform ROS?: Yes (limited d/t intox) Is the patient limited Upper Sorbian proficient: No Constitutional: No: Chills, Fever HEENTM: No: Blurred Vision, Double Vision Respiratory: No: Cough, Shortness of Breath Cardiac (ROS): No: Chest Pain, Palpitations ABD/GI: No: Constipated, Diarrhea Neurological: Yes: Headache. No: Dizziness *Physical Exam - Vital Signs Last Vital Signs Temp Pulse Resp BP Pulse Ox 97.8 F 105 H 17 97/67 94 L 01/24/19 12:09 01/24/19 12:09 01/24/19 12:09 01/24/19 12:09 01/24/19 12:09 - Physical Exam General Appearance: Yes: Obese. No: Apparent Distress HEENT: negative: Scleral Icterus (R), Scleral Icterus (L) Neck: positive: Trachea midline. negative: Lymphadenopathy (R), Lymphadenopathy (L) Respiratory/Chest: positive: Lungs Clear, Normal Breath Sounds. negative: Respiratory Distress, Labored Respiration, Crackles, Rales, Stridor, Wheezing Cardiovascular: positive: Regular Rate, S1, S2. negative: Irregularly Irregular Gastrointestinal/Abdominal: positive: Soft, Other (LLQ ecchymosis w/ purpura and yellow coloration, nonTTP. ). negative: Tenderness Musculoskeletal: positive: Other. negative: Vertebral Tenderness (no TTP to midline palpation of C-spine, T-spine, L-spine; no step-offs noted ) Extremity: positive: Normal Inspection, Normal Range of Motion, Other (no abrasions to elbows. No swelling to knees b/l). negative: Calf Tenderness Integumentary: positive: Dry, Warm. negative: Erythema, Jaundice Neurologic: positive: Disoriented Medical Decision Making - Medical Decision Making 01/24/19 15:08 Patient appears intoxicated. No gross abnormalities found on physical exam. - observe Pt in ED 01/24/19 18:07 - patient Eloped *DC/Admit/Observation/Transfer Diagnosis at time of Disposition: Alcohol intoxication Qualifiers: Complication of substance-induced condition: uncomplicated Qualified Code(s): F10.920 - Alcohol use, unspecified with intoxication, uncomplicated - Discharge Dispostion Disposition: ELOPED Decision to Admit order: No - Referrals - Patient Instructions - Post Discharge Activity
--- NOTE | 2019-01-24 15:37 | PDOC ---
Documentation entered by Joelle Juárez SCRIBE, acting as scribe for Palmer Stnoe MD. Palmer Stone MD: This documentation has been prepared by the Marquita pereira Brenda, SCRIBE, under my direction and personally reviewed by me in its entirety. I confirm that the documentation accurately reflects all work, treatment, procedures, and medical decision making performed by me. Attending Attestation - Resident Resident Name: Gagan Centeno - ED Attending Attestation I have performed the following: I have examined & evaluated the patient, The case was reviewed & discussed with the resident, I agree w/resident's findings & plan, Exceptions are as noted - HPI HPI: 01/24/19 15:07 The patient is a 64 year old male, with a significant PMH of mesothelioma lung cancer, chronic back pain, HTN (noncompliant) and EtOH abuse who presents to the emergency department with alcohol intoxication. As per patient, he is also having lower back pain. The patient denies chest pain, shortness of breath, headache and dizziness. Denies fever, chills, nausea, vomiting, diarrhea and constipation. Denies any urinary symptoms. Allergies: NKA Past surgical history: None reported. Social history: Denies tobacco use. Etoh abuse. - Physicial Exam PE: 01/24/19 16:36 Vitals: Triage Vital signs reviewed General Appearance: no acute distress, well nourished well developed, Head: Atraumatic, Eyes: Pupils equal reactive round, extraocular movement intact Cardiac: Regular rate and rhythym, no murmurs, no rubs, no gallops, Lungs: Clear to auscultation bilateral, good air movement bilaterally, Abdomen: Soft, non distended, normal bowel sounds, non tender to palpation Extremities: Full range of motion to all extremities, no cyanosis, clubbing, or edema Muscular skeletal: No midline tenderness to palpation no ecchymosis or bruising to back. Skin: Warm and dry, no rashes or lesions, no rash, no petechiae Neuro: Strength intact to all extremities, Sensation intact to all extremities, gait normal Psych: normal mood, normal affect - Medical Decision Making 01/24/19 16:37 Patient well-known to ED staff presents to the emergency department secondary to alcohol intoxication complaining of back discomfort. On muscle skeletal evaluation no midline tenderness to palpation Patient was being observed in the emergency department patient was seen walking out well-appearing with steady gait prior to completion of medical evaluation.
[2019-01-24 18:35] VITALS: BP 100/54; PULSE 87; TEMP 98
== END 2019-01-24 17:50 | disposition left against medical advice (07) ==
LOC: JER 11:54
DX: F10.920 Alcohol use, unspecified with intoxication, uncomplicated (principal); F17.210 Nicotine dependence, cigarettes, uncomplicated; I10 Essential (primary) hypertension; C45.9 Mesothelioma, unspecified
CPT/HCPCS: 99283-25

== ENCOUNTER 2019-01-27 15:15 | Emergency (ER) | payer OTHER | END 2019-01-28 05:59 | disposition home or self-care (01) | LOC: JER 01-28 05:59 ==

== ENCOUNTER 2019-01-28 20:31 | Emergency (ER) | payer OTHER ==
[2019-01-28 20:42] VITALS: BP 110/67; PULSE 88; TEMP 98.5; BMI 37.1
--- NOTE | 2019-01-29 02:50 | PDOC ---
History of Present Illness - General Chief Complaint: Alcohol intoxication Stated Complaint: INTOXICATION Time Seen by Provider: 01/29/19 02:47 History Source: Patient Exam Limitations: No Limitations - History of Present Illness Initial Comments: 01/29/19 02:51 63 yo male pmh HTN, Mesothelioma, ETOH abuse, very well known to the ED presents to the ED for alcohol intox. Pt admits to drinking 1 pint of vodka daily which he did today, brought in by EMS. Pt sleeping in stretcher on 1st assessment, normal vitals, no acute distress. On second assessment, pt sitting up in wheelchair watching TV, able to ambulate without difficulty, eating and drinking, denies F/C/N/V, CP, SOB, abdominal pain, changes in bowel or bladder habits or any current medical complaints. Pt states he is at baseline without any current complaints Past History - Past Medical History Allergies/Adverse Reactions: Allergies Allergy/AdvReac Type Severity Reaction Status Date / Time Fish Containing Products Allergy Mild Swelling Verified 01/27/19 15:32 No Known Drug Allergies Allergy Verified 01/27/19 15:32 Home Medications: Ambulatory Orders Unobtainable 01/13/19 Anemia: No Asthma: No Cancer: Yes (mesothelioma lung cancer) Cardiac Disorders: No CVA: No COPD: No CHF: No DVT: No Dementia: No Diabetes: No Dialysis: No GI Disorders: No Disorders: No HTN: Yes (non compliance) Hypercholesterolemia: No Kidney Stones: No Liver Disease: No Psychiatric Problems: Yes (etoh) Seizures: No Thyroid Disease: No Lung CA: No - Surgical History Abdominal Surgery: No Appendectomy: No Cardiac Surgery: No Cholecystectomy: No Lung Surgery: No Neurologic Surgery: No Orthopedic Surgery: No - Family Disease History Family Disease History: CA: Mother - Reproductive History Testicular Surgery: No - Immunization History TDAP Vaccination: Yes Immunization Up to Date: Yes - Suicide/Smoking/Psychosocial Hx Smoking Status: No Smoking History: Unknown if ever smoked Have you smoked in the past 12 months: No Number of Cigarettes Smoked Daily: 0 If you are a former smoker, when did you quit?: 0 Cigars Per Day: 0 'Breaking Loose' booklet given: 09/22/17 Hx Alcohol Use: Yes Drug/Substance Use Hx: No Substance Use Type: Alcohol (vodka 1pint daily) Hx Substance Use Treatment: Yes Review of Systems - Review of Systems Constitutional: Yes: See HPI HEENTM: Yes: See HPI Respiratory: Yes: See HPI Cardiac (ROS): Yes: See HPI ABD/GI: Yes: See HPI : Yes: See HPI Musculoskeletal: Yes: See HPI Integumentary: Yes: See HPI Neurological: Yes: See HPI *Physical Exam - Vital Signs Last Vital Signs Temp Pulse Resp BP Pulse Ox 98.5 F 88 19 110/67 96 01/28/19 20:41 01/28/19 20:41 01/28/19 20:41 01/28/19 20:41 01/28/19 20:41 - Physical Exam General Appearance: Yes: Nourished, Appropriately Dressed. No: Apparent Distress HEENT: positive: EOMI, DOUGLAS, Normal Voice Neck: positive: Supple. negative: Carotid bruit Respiratory/Chest: positive: Lungs Clear, Normal Breath Sounds. negative: Rapid RR, Crackles, Rales, Rhonchi, Stridor, Wheezing Cardiovascular: positive: Regular Rhythm, Regular Rate, S1, S2. negative: Edema , JVD, Murmur Vascular Pulses: Dorsalis-Pedis (R): 3+, Doralis-Pedis (L): 3+ Gastrointestinal/Abdominal: positive: Flat, Soft. negative: Distended, Guarding , Rebound, Tenderness Extremity: positive: Normal Capillary Refill, Normal Inspection, Normal Range of Motion Integumentary: positive: Normal Color, Dry, Warm Neurologic: positive: Fully Oriented, Alert, Normal Mood/Affect, Normal Response Medical Decision Making - Medical Decision Making 01/29/19 02:56 63 yo male pmh HTN, Mesothelioma, ETOH abuse, very well known to the ED presents to the ED for alcohol intox. Pt admits to drinking 1 pint of vodka daily which he did today, brought in by EMS. Pt sleeping in stretcher on 1st assessment, normal vitals, no acute distress. On second assessment, pt sitting up in wheelchair watching TV, able to ambulate without difficulty, eating and drinking, denies F/C/N/V, CP, SOB, abdominal pain, changes in bowel or bladder habits or any current medical complaints. Pt states he is at baseline without any current complaints vitals WNL NAD, appears disheveled and smells of urine and alcohol. Pt well known to ED, presents very frequently with the same appearance Pt ambulates without difficulty No labs or imaging required. Pt admits drinking alcohol and being intoxicated earlier without medical complaints, pt no longer intox, clinically sober and safe for DC Pt agrees with and understands plan *DC/Admit/Observation/Transfer Diagnosis at time of Disposition: Alcohol abuse, Acute alcohol intoxication - Discharge Dispostion Disposition: HOME Condition at time of disposition: Stable Decision to Admit order: No - Referrals - Patient Instructions Printed Discharge Instructions: DI for Alcohol Abuse - Post Discharge Activity
--- NOTE | 2019-01-29 03:19 | PDOC ---
Attending Attestation - Resident Resident Name: Rusty Montgomery - ED Attending Attestation I have performed the following: I have examined & evaluated the patient, The case was reviewed & discussed with the resident, I agree w/resident's findings & plan - HPI HPI: 01/29/19 03:18 Pt comes with his usual complaint of alcohol use. - Physicial Exam PE: 01/29/19 04:39 Agree with resident exam. - Medical Decision Making 01/29/19 04:39 Pt is stable for discharge. He is ambulating and hanging out watching TV
== END 2019-01-29 06:03 | disposition home or self-care (01) ==
LOC: JER 20:31
DX: F10.120 Alcohol abuse with intoxication, uncomplicated (principal); C45.9 Mesothelioma, unspecified; I10 Essential (primary) hypertension
CPT/HCPCS: 99281-25

== ENCOUNTER 2019-02-06 21:29 | Emergency (ER) | payer OTHER ==
[2019-02-06 21:50] VITALS: BMI 27.3
--- NOTE | 2019-02-06 23:33 | PDOC ---
History of Present Illness - General Chief Complaint: Shortness of Breath Stated Complaint: INTAXICATION Time Seen by Provider: 02/06/19 23:00 History Source: Patient Exam Limitations: Intoxication - History of Present Illness Initial Comments: 02/06/19 23:27 Mr. De Leon is a 64 y/o man with hx EtOH use disorder presenting today for shortness of breath. History limited by intoxication. He reports that the shortness of breath started yesterday. He is unable to articulate why he presents today vs yesterday. He reports some mild wheezing yesterday that he reports has since resolved. He denies any fevers, chills, changes in appetite, night sweats. Past History - Past Medical History Allergies/Adverse Reactions: Allergies Allergy/AdvReac Type Severity Reaction Status Date / Time Fish Containing Products Allergy Mild Swelling Verified 02/06/19 21:45 No Known Drug Allergies Allergy Verified 02/06/19 21:45 Home Medications: Ambulatory Orders NK [No Known Home Medication] 02/07/19 Anemia: No Asthma: No Cancer: Yes (mesothelioma lung cancer) Cardiac Disorders: No CVA: No COPD: No CHF: No DVT: No Dementia: No Diabetes: No Dialysis: No GI Disorders: No Disorders: No HTN: Yes (non compliance) Hypercholesterolemia: No Kidney Stones: No Liver Disease: No Psychiatric Problems: Yes (etoh) Seizures: No Thyroid Disease: No Lung CA: No - Surgical History Abdominal Surgery: No Appendectomy: No Cardiac Surgery: No Cholecystectomy: No Lung Surgery: No Neurologic Surgery: No Orthopedic Surgery: No - Family Disease History Family Disease History: CA: Mother - Reproductive History Testicular Surgery: No - Immunization History TDAP Vaccination: Yes Immunization Up to Date: Yes - Suicide/Smoking/Psychosocial Hx Smoking Status: No Smoking History: Current every day smoker Have you smoked in the past 12 months: No Number of Cigarettes Smoked Daily: 0 If you are a former smoker, when did you quit?: 0 Cigars Per Day: 0 Information on smoking cessation initiated: No 'Breaking Loose' booklet given: 09/22/17 Hx Alcohol Use: Yes Drug/Substance Use Hx: No Substance Use Type: Alcohol (vodka 1pint daily) Hx Substance Use Treatment: Yes Review of Systems - Review of Systems Able to Perform ROS?: Yes (Limited by intoxication) Comments:: 02/06/19 23:35 ROS: GENERAL/CONSTITUTIONAL: No fever or chills. No weakness. HEAD, EYES, EARS, NOSE AND THROAT: No change in vision. No ear pain or discharge. No sore throat. CARDIOVASCULAR: Shortness of breath. No chest pain RESPIRATORY: No cough, wheezing, or hemoptysis. GASTROINTESTINAL: No nausea, vomiting, diarrhea or constipation. GENITOURINARY: No dysuria, frequency, or change in urination. MUSCULOSKELETAL: No joint or muscle swelling or pain. No neck or back pain. SKIN: No rash NEUROLOGIC: No headache, vertigo, loss of consciousness, or change in strength/ sensation. ENDOCRINE: No increased thirst. No abnormal weight change HEMATOLOGIC/LYMPHATIC: No anemia, easy bleeding, or history of blood clots. ALLERGIC/IMMUNOLOGIC: No hives or skin allergy. *Physical Exam - Vital Signs Last Vital Signs Temp Pulse Resp BP Pulse Ox 98.4 F 78 18 126/82 100 02/06/19 21:46 02/06/19 21:46 02/06/19 21:46 02/06/19 21:46 02/06/19 21:46 - Physical Exam Comments: 02/06/19 23:42 PE: GENERAL: Intoxicated, disheveled. Awake, alert, and fully oriented, in no acute distress HEAD: No signs of trauma, normocephalic, atraumatic EYES: PERRLA, EOMI, sclera anicteric, conjunctiva clear ENT: Auricles normal inspection, hearing grossly normal, nares patent, oropharynx clear without exudates. Moist mucosa NECK: Normal ROM, supple, no lymphadenopathy, JVD, or masses LUNGS: No distress, speaks full sentences, clear to auscultation bilaterally. No wheezing, rales, stridor. HEART: Regular rate and rhythm, normal S1 and S2, no murmurs, rubs or gallops, peripheral pulses normal and equal bilaterally. ABDOMEN: Soft, nontender, normoactive bowel sounds. No guarding, no rebound. No masses EXTREMITIES : Normal inspection, Normal range of motion, no edema. No clubbing or cyanosis. NEUROLOGICAL: Normal speech, no focal sensorimotor deficits SKIN: Warm, Dry, normal turgor, no rashes or lesions noted General Appearance: Yes: Disheveled, Alcohol on Breath, Intoxicated. No: Apparent Distress ED Treatment Course - LABORATORY CBC & Chemistry Diagram: 02/07/19 10:46 02/07/19 10:46 Medical Decision Making - Medical Decision Making 02/06/19 23:44 64 y/o M with hx EtOH use disorder presenting with shortness of breath that began yesterday, intoxicated and disheveled but well appearing with good air movement into the lungs and no apparent respiratory distress. Plan: EKG Serial reassessments Dispo: Likely home 02/07/19 00:19 On reassessment, Mr. De Leon is sleeping comfortably in no acute distress. Patient signed out to Dr. Anand *DC/Admit/Observation/Transfer Diagnosis at time of Disposition: Intoxication, Alcohol abuse - Discharge Dispostion Disposition: HOME Condition at time of disposition: Improved Decision to Admit order: No - Referrals Referrals: Lily Cornejo [Primary Care Provider] - - Patient Instructions Printed Discharge Instructions: DI for Alcohol Abuse, DI for Shortness of Breath Additional Instructions: You were evaluated in the Emergency Department for shortness of breath. Please follow up with your primary care provider within the next week. Please return to the Emergency Department if you develop high fevers, chills, lightheadedness , or changes in your vision. Please also seek immediate treatment if you begin to feel symptoms of alcohol withdrawal, including tremors, hallucinations, sweating, fevers, as alcohol withdrawal can be fatal if untreated. - Post Discharge Activity
--- NOTE | 2019-02-07 00:15 | PDOC ---
Documentation entered by Smith Douglas SCRIBE, acting as scribe for Sue Casanova MD. Sue Casanova MD: This documentation has been prepared by the Misael pereira Daniel, SCRIBE, under my direction and personally reviewed by me in its entirety. I confirm that the documentation accurately reflects all work, treatment, procedures, and medical decision making performed by me. Attending Attestation - Resident Resident Name: Mary EllenerickRon - ED Attending Attestation I have performed the following: I have examined & evaluated the patient, The case was reviewed & discussed with the resident, I agree w/resident's findings & plan, Exceptions are as noted - HPI HPI: 02/06/19 23:27 The patient is a year old with a past medical history of HTN, mesothelioma, and alcohol abuse here today for evaluation of shortness of breath. The patient admits to drinking today and states that his shortness of breath started yesterday. Patient has no other complaints but is asking for an albuterol treatment. Patient denies lower extremity edema. Allergies: NKDA PCP: Lily Cornejo - Physicial Exam PE: 02/06/19 23:27 GENERAL: Well-appearing, well-nourished. No apparent distress. Disheveled. Intoxicated. HEENT: Normocephalic, atraumatic. PERRL, EOM intact. CARDIOVASCULAR: Normal S1, S2. Regular rate and rhythm. PULMONARY: Clear to auscultation bilaterally. ABDOMEN: Soft, non-distended, non-tender. EXTREMITIES: +mild pedal edema. Normal ROM in all four extremities. No gross deformities. SKIN: Warm, dry. No rash NEUROLOGICAL: No focal neurological deficits. - Medical Decision Making 02/07/19 00:13 pt is intoxicated and will be reassessed lungs cta b/l no fever
--- NOTE | 2019-02-07 01:34 | PDOC ---
*Physical Exam - Vital Signs Last Vital Signs Temp Pulse Resp BP Pulse Ox 97.8 F 79 18 113/75 96 02/06/19 23:58 02/06/19 23:58 02/06/19 21:46 02/06/19 23:58 02/06/19 23:58 ED Treatment Course - LABORATORY CBC & Chemistry Diagram: 02/07/19 10:46 02/07/19 10:46 Medical Decision Making - Medical Decision Making Pt signed out to me by Dr. Ryan, EM Resident. 64 year old male with known mesothelioma, suspected prior PE (01/2019) for which he refused CTA, ETOH abuse, HTN, HLD, DM presented to ED for SOB. Pt is well know to the Department. Initial Vital Signs Temp Pulse Resp BP Pulse Ox 98.4 F 78 18 126/82 100 02/06/19 21:46 02/06/19 21:46 02/06/19 21:46 02/06/19 21:46 02/06/19 21:46 Afebrile. No tachycardia. No tachypnea. No hypotension. No hypoxia on room air. Labs ordered: none Imaging ordered: none Medications ordered: none Pt reported he would like to sleep. Will observe and discharge in the AM. 02/07/19 06:58 Pt signed out to miladis Doyle EM resident. Appreciate her note. Pt currently sleeping comfortably. 02/08/19 09:[address] Elkins's note: Pt later complained of headache and right shoulder pain. Pt refused shoulder XR. CT Head report: Name: [facility]OLOG[facility] Phys: Sadie Elkins RESIDENT : 1955 Age: 64 Sex: M [facility] Acct: [id number] Loc: [facility] Exam Date: 02/07/19 Status: REG [place] [id number] Unit Number: [id number] EXAM#: TYPE/EXAM: RESULT: [id number] CT/HEAD CT WITHOUT CONTRAST Status post fall. Evaluate for bleed CT scan of the head without contrast. Since 07/23/2018, there remains generalized volume loss with moderate ventricular dilatation and periventricular chronic microvascular ischemic disease changes. No mass lesion, acute infarct or intracranial hemorrhage are identified. There is no shift of the midline structures. The calvarium is intact. Moderate deviation of the nasal septum to the right and mild mucosal thickening in the ethmoid air cells. Retention cyst versus polyp in the right maxillary antrum measuring 2.8 cm. There is intact. Mastoid air cells are well aerated IMPRESSION: No significant interval change There is generalized volume loss with moderate ventricular dilatation and periventricular chronic microvascular ischemic disease changes. No gross acute intracranial pathology is identified. Chronic sinusitis as well as a retention cyst versus polyp in the right maxillary antrum. Reported By: Luzmaria Merchant MD 02/07/19 0842 CBC WBC 5.4 K/mm3 (4.0-10.0) 02/07/19 10:46 RBC 3.99 M/mm3 (4.00-5.60) L 02/07/19 10:46 Hgb 10.7 GM/dL (11.7-16.9) L 02/07/19 10:46 Hct 33.0 % (35.4-49) L 02/07/19 10:46 MCV 82.8 fl (80-96) 02/07/19 10:46 MCH 26.7 pg (25.7-33.7) 02/07/19 10:46 MCHC 32.3 g/dl (32.0-35.9) 02/07/19 10:46 RDW 20.3 % (11.9-15.9) H 02/07/19 10:46 Plt Count 248 K/MM3 (134-434) D 02/07/19 10:46 MPV 7.8 fl (7.5-11.1) 02/07/19 10:46 Absolute Neuts (auto) 3.3 K/mm3 (1.5-8.0) 02/07/19 10:46 Neutrophils % 61.2 % (42.8-82.8) 02/07/19 10:46 Lymphocytes % 27.5 % (8-40) D 02/07/19 10:46 Monocytes % 7.8 % (3.8-10.2) 02/07/19 10:46 Eosinophils % 2.8 % (0-4.5) 02/07/19 10:46 Basophils % 0.7 % (0-2.0) 02/07/19 10:46 Nucleated RBC % 0 % (0-0) 02/07/19 10:46 CMP Sodium 143 mmol/L (136-145) 02/07/19 10:46 Potassium 3.6 mmol/L (3.5-5.1) 02/07/19 10:46 Chloride 103 mmol/L (98-107) 02/07/19 10:46 Carbon Dioxide 31 mmol/L (21-32) 02/07/19 10:46 Anion Gap 9 MMOL/L (8-16) 02/07/19 10:46 BUN 4.4 mg/dL (7-18) L 02/07/19 10:46 Creatinine 0.6 mg/dL (0.55-1.3) 02/07/19 10:46 Est GFR (CKD-EPI)AfAm 123.15 02/07/19 10:46 Est GFR (CKD-EPI)NonAf 106.25 02/07/19 10:46 Random Glucose 79 mg/dL (74-106) 02/07/19 10:46 Calcium 8.5 mg/dL (8.5-10.1) 02/07/19 10:46 Total Bilirubin 1.3 mg/dL (0.2-1) H 02/07/19 10:46 AST 40 U/L (15-37) H 02/07/19 10:46 ALT 21 U/L (13-61) 02/07/19 10:46 Alkaline Phosphatase 136 U/L (45-117) H 02/07/19 10:46 Total Protein 6.8 g/dl (6.4-8.2) 02/07/19 10:46 Albumin 3.1 g/dl (3.4-5.0) L 02/07/19 10:46 *DC/Admit/Observation/Transfer Diagnosis at time of Disposition: Intoxication, Alcohol abuse - Discharge Dispostion Disposition: HOME Condition at time of disposition: Improved - Referrals Referrals: Lily Cornejo [Primary Care Provider] - - Patient Instructions Printed Discharge Instructions: DI for Alcohol Abuse, DI for Shortness of Breath Additional Instructions: You were evaluated in the Emergency Department for shortness of breath. Please follow up with your primary care provider within the next week. Please return to the Emergency Department if you develop high fevers, chills, lightheadedness , or changes in your vision. Please also seek immediate treatment if you begin to feel symptoms of alcohol withdrawal, including tremors, hallucinations, sweating, fevers, as alcohol withdrawal can be fatal if untreated. - Post Discharge Activity
--- NOTE | 2019-02-07 07:05 | PDOC ---
*Physical Exam - Vital Signs Last Vital Signs Temp Pulse Resp BP Pulse Ox 97.8 F 79 18 113/75 96 02/06/19 23:58 02/06/19 23:58 02/06/19 21:46 02/06/19 23:58 02/06/19 23:58 ED Treatment Course - LABORATORY CBC & Chemistry Diagram: 02/07/19 10:46 02/07/19 10:46 Medical Decision Making - Medical Decision Making Pt was signed out to me by resident Dr. Anand, who explained the presentation, ED course, any pending results, and needed interventions. Pending results include clinical sobriety. Pt is currently stable and is lying comfortably. 02/07/19 07:02 Pt complaining of headache, states he may have fallen but is unsure. Ordered non -contrast head CT to evaluate for bleed. 02/07/19 07:36 CT with no acute pathology. Pt complaining of persistent vertigo since awakening with R shoulder pain. Believes he fell yesterday. Requesting librium for detox. Ordering basic labs, IVF. 02/07/19 08:53 Pt difficult stick, sent labs. Pt refusing shoulder x-ray, states that "my shoulder was broken before, I don't need an x-ray". Pt a/o x3, can refuse care. Pending labs. 02/07/19 10:55 Labs WNL Pt ambulatory in ED Clinically sober. Discharge with PCP f/u. Advised pt to go to his PT follow-up appointments. 02/07/19 12:16 *DC/Admit/Observation/Transfer Diagnosis at time of Disposition: Intoxication, Alcohol abuse - Discharge Dispostion Disposition: HOME Condition at time of disposition: Improved Decision to Admit order: No - Referrals Referrals: Lily Cornejo [Primary Care Provider] - - Patient Instructions Printed Discharge Instructions: DI for Alcohol Abuse, DI for Shortness of Breath Additional Instructions: You were evaluated in the Emergency Department for shortness of breath. Please follow up with your primary care provider within the next week. Please return to the Emergency Department if you develop high fevers, chills, lightheadedness , or changes in your vision. Please also seek immediate treatment if you begin to feel symptoms of alcohol withdrawal, including tremors, hallucinations, sweating, fevers, as alcohol withdrawal can be fatal if untreated. - Post Discharge Activity
[2019-02-07 07:09] VITALS: BP 150/97; PULSE 91; TEMP 97.7
[2019-02-07] MEDS ORDERED: ACETAMINOPHEN 325 MG TABLET (FP) PO ONE (09:08)
[2019-02-07] MEDS ORDERED: chlordiazePOXIDE HCL 25 MG CAPSULE PO ONE (09:08)
[2019-02-07] MEDS ORDERED: SODIUM CHLORIDE 1,000 ML IV STA (09:08)
[2019-02-07] MEDS ORDERED: chlordiazePOXIDE HCL 25 MG CAPSULE ONE (09:46)
[2019-02-07] MEDS ORDERED: ACETAMINOPHEN 325 MG TABLET (FP) ONE (09:46)
[2019-02-07 11:05] LABS: BASO % 0.7 % (0-2.0); EOS % 2.8 % (0-4.5); HEMOGLOBIN 10.7 GM/dL (11.7-16.9); LYMPH % 27.5 % (8-40); MCH 26.7 pg (25.7-33.7); MCHC 32.3 g/dl (32.0-35.9); MEAN CELL VOLUME 82.8 fl (80-96); MEAN PLT VOLUME 7.8 fl (7.5-11.1); MONO % 7.8 % (3.8-10.2); NEUT % 61.2 % (42.8-82.8); PLATELET COUNT 248 K/MM3 (134-434); RBC 3.99 M/mm3 (4.00-5.60); RDW 20.3 % (11.9-15.9); WHITE BLOOD COUNT 5.4 K/mm3 (4.0-10.0)
[2019-02-07 11:29] LABS: ALBUMIN 3.1 g/dl (3.4-5.0); BILIRUBIN,TOTAL 1.3 mg/dL (0.2-1); BLOOD UREA NITROGEN 4.4 mg/dL (7-18); CALCIUM 8.5 mg/dL (8.5-10.1); CREATININE 0.6 mg/dL (0.55-1.3); POTASSIUM 3.6 mmol/L (3.5-5.1); TOT PROT 6.8 g/dl (6.4-8.2)
--- NOTE | 2019-02-07 12:56 | EKG ---
Test Reason : Blood Pressure : / mmHG Vent. Rate : 074 BPM Atrial Rate : 073 BPM P-R Int : 000 ms QRS Dur : 098 ms QT Int : 430 ms P-R-T Axes : 000 -32 022 degrees QTc Int : 477 ms LIKELY SINUS RHYTHM LEFT AXIS DEVIATION NONSPECIFIC ST ABNORMALITY ABNORMAL ECG WHEN COMPARED WITH ECG OF 13-JAN-2019 13:18, NO SIGNIFICANT CHANGE WAS FOUND Confirmed by KY OVIEDO MD ([id number]) on 02/07/2019 12:55:39 PM Referred By: Confirmed By:KY OVIEDO MD
== END 2019-02-07 12:30 | disposition home or self-care (01) ==
LOC: JER 21:29
DX: F10.220 Alcohol dependence with intoxication, uncomplicated (principal); I10 Essential (primary) hypertension; C45.9 Mesothelioma, unspecified; Z59.0 Homelessness
CPT/HCPCS: 36415; 70450-TC; 80053; 85025; 93005; 93010; 99284-25; J7030

== ENCOUNTER 2019-02-09 13:40 | Emergency (ER) | payer OTHER ==
[2019-02-09 13:52] VITALS: BMI 47.2
--- NOTE | 2019-02-09 13:58 | PDOC ---
History of Present Illness - General Chief Complaint: Alcohol intoxication Stated Complaint: Alcohol intoxication Time Seen by Provider: 02/09/19 13:58 History Source: Patient, EMS Exam Limitations: Intoxication - History of Present Illness Initial Comments: 64 year old male with PMH mesothelioma, suspected prior PE (01/2019) for which he refused CTA, ETOH abuse, HTN, HLD, DM BIBA to ED for ETOH detox, for which he is frequently in the ED for. Incidentally pt suffered a head injury secondary to the ambulance stretcher falling over onto the pavement. Pt reported mild headache, denied LOC, denied vomiting. Pt stated "All you can do for me is feed me". Pt reported no other complaints. Pt reported "Have you ever seen a drunk fall and not be able to get up again to have another drink?" Past History - Past Medical History Allergies/Adverse Reactions: Allergies Allergy/AdvReac Type Severity Reaction Status Date / Time Fish Containing Products Allergy Mild Swelling Verified 02/06/19 21:45 No Known Drug Allergies Allergy Verified 02/06/19 21:45 Home Medications: Ambulatory Orders NK [No Known Home Medication] 02/07/19 Cancer: Yes (mesothelioma lung cancer) Dialysis: No HTN: Yes (non compliance) Hypercholesterolemia: Yes Liver Disease: Yes (ETOH abuse) Psychiatric Problems: Yes (ETOH abuse) Lung CA: Yes (Mesothelioma) - Surgical History Abdominal Surgery: No Appendectomy: No Cardiac Surgery: No Cholecystectomy: No Lung Surgery: No Neurologic Surgery: No Orthopedic Surgery: No - Family Disease History Family Disease History: CA: Mother - Reproductive History Testicular Surgery: No - Immunization History TDAP Vaccination: Yes Immunization Up to Date: Yes - Suicide/Smoking/Psychosocial Hx Smoking Status: No Smoking History: Never smoked Have you smoked in the past 12 months: No Number of Cigarettes Smoked Daily: 0 If you are a former smoker, when did you quit?: 0 Cigars Per Day: 0 Information on smoking cessation initiated: No 'Breaking Loose' booklet given: 09/22/17 Hx Alcohol Use: Yes Drug/Substance Use Hx: No Substance Use Type: Alcohol (vodka 1pint daily) Hx Substance Use Treatment: Yes Review of Systems - Review of Systems Able to Perform ROS?: Yes Comments:: General: denied fever, chills, generalized weakness. HEENT: denied sore throat, rhinorrhea, ear pain. Cardiovascular: denied chest pain, palpitations, syncope, diaphoresis. Respiratory: denied shortness of breath, cough, sputum production, hemoptysis. Gastrointestinal: denied abdominal pain, nausea, vomiting, diarrhea, constipation, blood in stool. Genitourinary: denied dysuria, increased urinary frequency, hematuria, urinary incontinence, flank pain. Back: denied back pain. Musculoskeletal: denied joint pain, muscle pain, joint swelling. Neurological: admitted to headache. denied dizziness, numbness, tingling, weakness. Integumentary: denied rash, laceration, abrasion. Hematologic/Lymphatic: denied bruising or bleeding. *Physical Exam - Vital Signs Last Vital Signs Temp Pulse Resp BP Pulse Ox 97.8 F 93 H 20 138/86 94 L 02/09/19 13:43 02/09/19 13:43 02/09/19 13:43 02/09/19 13:43 02/09/19 13:43 - Physical Exam Comments: Constitutional: Well-nourished, Well-developed, appearing stated age. Airway: intact Breathing: bilateral breath sounds Circulation: 2+ carotid pulse B/L HEENT: head is normocephalic. abrasion to forehead. no scalp hematoma. no raccon eyes. no periorbital swelling. EOMI. PERRLA. Neck: supple. Full ROM. no midline c-spine tenderness to palpation. No step offs. Cardiovascular: regular heart rhythm. no murmurs. no pericardial friction rub. Respiratory: clear to auscultation bilaterally. no crackles, rhonchi or wheezing. no stridor. Gastrointestinal: soft, nontender. normal bowel sounds. no rebound, guarding, masses. Back: no midline T-spine or L-spine tenderness to palpation. No step offs. Pelvis: lower extremities equal in length without external rotation. No hip tenderness to palpation. Neurological: CN 2-12 grossly intact. moves all four extremities. Psych: awake, alert, oriented x3. follows commands. answers questions appropriately. pt exhibiting sexually aggressive behavior, repeatedly asking physician to touch his lower back stating "I just want your hands on me." Medical Decision Making - Medical Decision Making 64 year old male with above PMH presented to ED for ETOH intoxication, for which he is seen in the ED frequently. Incidentally pt fell off ambulance stretcher during transport, obtaining closed head injury on concrete step. Pt is a frequent drinker, likely to have brain atrophy and increased risk for subdural hematoma. Incident report initiated. Initial Vital Signs Temp Pulse Resp BP Pulse Ox 97.8 F 93 H 20 138/86 94 L 02/09/19 13:43 02/09/19 13:43 02/09/19 13:43 02/09/19 13:43 02/09/19 13:43 Afebrile. No tachycardia. No tachypnea. Mild hypertension. Mild hypoxia on room air. ASSESSMENT: 1) Fall with closed head injury 2) ETOH Detox Labs ordered: none Imaging ordered: CT head, CT cervical spine, CXR, pelvis XR Medications ordered: none Labs performed yesterday on patient showed no anemia, no electrolyte abnormalities, mildly elevated total bilirubin, mildly elevated AST. 02/09/19 15:29 Pt refusing XR imaging, stating "I already know I have mesothelioma, I don't need any more XRays". It was explained to patient at length his XRs are for evaluation of his trauma. Pt repeated prior statement, grabbed the wall and refused transport to XR. Pt is alert and oriented x3, but intoxicated. 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 02/09/19 15:39 CT head report: Name: [facility] DEPARTMENT OF RADIOLOGY Phys: Jil Anand RESIDENT : 1955 Age: 64 Sex: M [facility] Acct: [id number] Loc: [address] Exam Date: 02/09/19 Status: [place] [address] Unit Number: [id number] EXAM#: TYPE/EXAM: RESULT: CT/CERVICAL SPINE CT W/O CONTR CT/HEAD CT WITHOUT CONTRAST Status post fall with head injury CT scan of the brain. A noncontrast CT scan of the brain was performed. Compared to prior CT scan of the head dated 02/07/2019 There is moderate volume loss and ventricular dilatation. Moderate chronic microvascular ischemic changes are present No mass lesion, gross acute infarct or intracranial hemorrhage are identified. Polypoid mucosal thickening in the right maxillary antrum with suggestion of retention cyst versus polyp measuring 2.7 x 1.5 cm as well as a partially included left maxillary antrum retention cyst versus polyp measuring 1.3 cm. The rest of the visualized paranasal sinuses and mastoid air cells are well aerated. Mild deviation of the nasal septum towards the right. Calcification of the cavernous carotid arteries are noted. The calvarium is intact . There is mild irregularity at the tip of the nasal bones consistent with a chronic nondepressed fracture that was also seen on prior examination dated 07/23/2018. Impression: Moderate atrophy. No gross evidence of a focal intracranial lesion or hemorrhage is seen. Chronic nondepressed fracture at the tip of the nasal bone, unchanged since the prior examination. CT cervical spine report: CT scan of the cervical spine without intravenous contrast Coronal and sagittal reconstruction images were obtained. Compared to prior CT scan of the cervical spine dated 05/08/2018 There is straightening of the cervical spine. No gross fracture, subluxation or prevertebral soft tissue swelling is seen. No jumped facets are identified. There is significant right facet hypertrophy at C3-C4 level. Mild empty spondylosis at C4-C5 and C6 -7 level. Previously visualized small sclerotic density in the posterior aspect of C7 vertebral body again seen which is nonspecific. Visualized portion of the airway appears unremarkable. No gross enlarged lymph nodes are identified. Moderate size calcified plaques at the common carotid bifurcation, bilaterally. Lung windows at the thoracic inlet appear unremarkable. IMPRESSION: The alignment is satisfactory. No gross fracture or subluxation is seen. No jumped facets are identified. Pt requesting tray of food, pt offered sandwich to which he stated "I do not want a sandwich". 02/09/19 17:07 Pt sleeping comfortably, arousable to voice. 02/09/19 21:36 Pt unable to be found multiple times in the Department. Pt eloped. Pt did not have IV. *DC/Admit/Observation/Transfer Diagnosis at time of Disposition: Intoxication, ETOH abuse, Closed head injury - Discharge Dispostion Disposition: ELOPED Condition at time of disposition: Guarded - Referrals Referrals: Lily Cornejo [Primary Care Provider] - - Patient Instructions - Post Discharge Activity
[2019-02-09 17:39] VITALS: BP 128/77; PULSE 88; TEMP 98.9
== END 2019-02-09 20:00 | disposition left against medical advice (07) ==
LOC: JER 13:40
DX: S09.90XA Unspecified injury of head, initial encounter (principal); F10.120 Alcohol abuse with intoxication, uncomplicated; I10 Essential (primary) hypertension; C45.7 Mesothelioma of other sites
CPT/HCPCS: 70450-TC; 72125-TC; 99283-25

== ENCOUNTER 2019-02-13 16:18 | Emergency (ER) | payer OTHER ==
[2019-02-13 16:21] VITALS: BP 140/75; PULSE 88; BMI 36.5
== END 2019-02-13 17:51 | disposition left against medical advice (07) ==
LOC: JER 16:18
DX: Z53.21 Procedure and treatment not carried out due to patient leaving prior to being seen by health care provider (principal)
CPT/HCPCS: 99282-25

== ENCOUNTER 2019-02-23 11:26 | Emergency (ER) | payer OTHER ==
[2019-02-23 11:37] VITALS: BP 118/71; PULSE 70; TEMP 97.6; BMI 30.4
== END 2019-02-23 12:50 | disposition left against medical advice (07) ==
LOC: JER 11:26
DX: Z53.21 Procedure and treatment not carried out due to patient leaving prior to being seen by health care provider (principal)
CPT/HCPCS: 99281-25

== ENCOUNTER 2019-02-24 19:22 | Emergency (ER) | payer OTHER ==
[2019-02-24 20:02] VITALS: BMI 38.7
--- NOTE | 2019-02-24 20:04 | PDOC ---
Rapid Medical Evaluation Chief Complaint: Back Pain Time Seen by Provider: 02/24/19 19:59 Medical Evaluation: Allergies Allergy/AdvReac Type Severity Reaction Status Date / Time Fish Containing Products Allergy Mild Swelling Verified 02/23/19 11:34 No Known Drug Allergies Allergy Verified 02/23/19 11:34 02/24/19 20:02 64 year old male BIBA for alcohol intoxication. patient is alert awake disheveled. PE"patient alert normocephalic A; alcohol intoxication P: patient to the ER. Discharge Disposition - Diagnosis Alcohol abuse Back pain Qualifiers: Back pain location: low back pain Chronicity: chronic Back pain laterality: unspecified Sciatica presence: without sciatica Qualified Code(s): M54.5 - Low back pain; G89.29 - Other chronic pain - Referrals - Patient Instructions - Post Discharge Activity
--- NOTE | 2019-02-25 06:09 | PDOC ---
Attending Attestation - Resident Resident Name: Bob Green - ED Attending Attestation I have performed the following: I have examined & evaluated the patient, The case was reviewed & discussed with the resident, I agree w/resident's findings & plan, Exceptions are as noted - HPI HPI: 02/25/19 06:08 64 M presenting to ED with ETOH intoxication. Pt also complaining of chronic back pain. Denies any falls or injury. - Physicial Exam PE: 02/25/19 06:16 "GENERAL: Awake, alert, and fully oriented, in no acute distress. HEAD: No signs of trauma EYES: PERRLA, EOMI, sclera anicteric, conjunctiva clear ENT: Auricles normal inspection, hearing grossly normal, nares patent, oropharynx clear without exudates. Moist mucosa NECK: Nontender, no stepoffs, Normal ROM, supple, no lymphadenopathy, JVD, or masses LUNGS: Breath sounds equal, clear to auscultation bilaterally. No wheezes, and no crackles HEART: Regular rate and rhythm, normal S1 and S2, no murmurs, rubs or gallops ABDOMEN: Soft, nontender, normoactive bowel sounds. No guarding, no rebound. No masses EXTREMITIES: Normal range of motion, no edema. No clubbing or cyanosis. No cords, erythema, or tenderness NEUROLOGICAL: Cranial nerves II through XII intact. 5/5 strength and sensation in all extremities, Normal speech, normal gait, normal cerebellar function SKIN: Warm, Dry, normal turgor, no rashes or lesions noted. - Medical Decision Making 02/25/19 06:16 64 M brought in for ETOH intoxication. Pt also with chronic back pain. No neuro deficits on exam. No external signs of trauma. Upon re-evaluation, pt is now clinically sober. Ambulatory in ED with steady gait. Denies SI/HI/AVH. Pt is well appearing, with normal vitals. Clinically stable for DC at this time. I discussed the physical exam findings, ancillary test results and final diagnoses with the patient. I answered all of the patient's questions. The patient was satisfied with the care received and felt comfortable with the discharge plan and treatment plan. The patient agrees to follow up with the primary care physician within 24-72 hours.
[2019-02-25 06:10] VITALS: BP 152/91; PULSE 80; TEMP 98.2
[2019-02-25] MEDS ORDERED: ACETAMINOPHEN 500 MG TABLET (FP) PO ONE (06:49)
[2019-02-25] MEDS ORDERED: ACETAMINOPHEN 325 MG TABLET (FP) ONE (06:59)
--- NOTE | 2019-02-25 07:03 | PDOC ---
History of Present Illness - General Chief Complaint: Back Pain Stated Complaint: INTOX Time Seen by Provider: 02/24/19 19:59 History Source: Patient Exam Limitations: No Limitations - History of Present Illness Initial Comments: 02/25/19 07:23 Sunil De Leon is a 64yM w PMHx mesothelioma, chronic back pain, EtOH abuse presenting with back pain. Pt brought alcohol intoxicated by EMS unable to provide history. Pt is frequent flyer of ED. Pt states he has missing lumbar vertebrae causing chronic back pain, exacerbated last night. Unknown inciting event. Denies trauma to back or head. Denies HI/SI. Denies fever, headache, chest pain, SOB, AB pain, urinary/bowel mvmt changes. Past History - Past Medical History Allergies/Adverse Reactions: Allergies Allergy/AdvReac Type Severity Reaction Status Date / Time Fish Containing Products Allergy Mild Swelling Verified 02/24/19 20:03 No Known Drug Allergies Allergy Verified 02/24/19 20:03 Home Medications: Ambulatory Orders NK [No Known Home Medication] 02/07/19 Anemia: No Asthma: No Cancer: Yes (mesothelioma lung cancer) Cardiac Disorders: No CVA: No COPD: No CHF: No DVT: No Dementia: No Diabetes: No Dialysis: No GI Disorders: No Disorders: No HTN: Yes (non compliance) Hypercholesterolemia: Yes Kidney Stones: No Liver Disease: Yes (ETOH abuse) Psychiatric Problems: Yes (ETOH abuse) Seizures: No Thyroid Disease: No Lung CA: Yes (Mesothelioma) - Surgical History Abdominal Surgery: No Appendectomy: No Cardiac Surgery: No Cholecystectomy: No Lung Surgery: No Neurologic Surgery: No Orthopedic Surgery: No - Family Disease History Family Disease History: CA: Mother - Reproductive History Testicular Surgery: No - Immunization History TDAP Vaccination: Yes Immunization Up to Date: Yes - Suicide/Smoking/Psychosocial Hx Smoking Status: No Smoking History: Never smoked Have you smoked in the past 12 months: No Number of Cigarettes Smoked Daily: 0 If you are a former smoker, when did you quit?: 0 Cigars Per Day: 0 Information on smoking cessation initiated: No 'Breaking Loose' booklet given: 09/22/17 Hx Alcohol Use: Yes Drug/Substance Use Hx: No Substance Use Type: Alcohol (vodka 1pint daily) Hx Substance Use Treatment: Yes Review of Systems - Review of Systems Constitutional: No: Chills, Fever, Malaise HEENTM: No: Eye Pain, Ear Pain, Nose Pain Respiratory: No: Cough, Shortness of Breath Cardiac (ROS): No: Chest Pain, Palpitations ABD/GI: No: Constipated, Diarrhea, Nausea, Vomiting : No: Burning, Dysuria Musculoskeletal: Yes: Back Pain. No: Joint Pain, Muscle Pain Integumentary: No: Bruising, Flushing Neurological: No: Headache, Seizure, Tingling, Tremors Psychiatric: No: Anxiety, Depression Endocrine: No: Intolerance to Cold, Intolerance to Heat Hematologic/Lymphatic: No: Anemia, Blood Clots *Physical Exam - Vital Signs Last Vital Signs Temp Pulse Resp BP Pulse Ox 98.2 F 80 20 152/91 100 02/25/19 06:00 02/25/19 06:00 02/25/19 06:00 02/25/19 06:00 02/25/19 06:00 - Physical Exam General Appearance: Yes: Nourished, Appropriately Dressed, Disheveled, Alcohol on Breath (clinically sober). No: Apparent Distress HEENT: positive: EOMI, DOUGLAS, Hearing Grossly Normal. negative: Scleral Icterus (R), Scleral Icterus (L), Rhinorrhea Respiratory/Chest: positive: Lungs Clear. negative: Chest Tender, Normal Breath Sounds (coarse), Respiratory Distress, Accessory Muscle Use, Wheezing Cardiovascular: positive: Regular Rhythm, Regular Rate, S1, S2. negative: Edema , Murmur Extremity: positive: Normal Capillary Refill Integumentary: positive: Normal Color Neurologic: positive: Fully Oriented, Alert, Normal Response, Responsive, Depressed Affect. negative: Confused, Disoriented Medical Decision Making - Medical Decision Making 02/25/19 07:00 Pt presented to ED at 20:00 02/24 with alcohol intoxication. Pt sleeping in vertical, re-evaluate when clinically sober 0500 - pt clinically sober to take H&P Ordered tylenol for back pain, d/c Sunil De Leon is a 64yM w PMHx mesothelioma, chronic back pain, EtOH abuse presenting with back pain. Pt refused all imaging and lab workup. Pt given water to drink and agreed to pain medication. Pt eloped when nurse returned to give tylenol. *DC/Admit/Observation/Transfer Diagnosis at time of Disposition: Alcohol abuse Back pain Qualifiers: Back pain location: low back pain Chronicity: chronic Back pain laterality: unspecified Sciatica presence: without sciatica Qualified Code(s): M54.5 - Low back pain; G89.29 - Other chronic pain - Discharge Dispostion Disposition: ELOPED Condition at time of disposition: Fair - Referrals - Patient Instructions - Post Discharge Activity
== END 2019-02-25 07:17 | disposition home or self-care (01) ==
LOC: JER 19:22
DX: M54.5 Low back pain (principal); G89.29 Other chronic pain; F10.10 Alcohol abuse, uncomplicated; C45.7 Mesothelioma of other sites
CPT/HCPCS: 99281-25

== ENCOUNTER 2019-02-25 18:17 | Observation (INO) | payer OTHER ==
--- NOTE | 2019-02-25 19:42 | PDOC ---
History of Present Illness - General Chief Complaint: Alcohol intoxication Stated Complaint: INTOXICATION Time Seen by Provider: 02/25/19 19:21 History Source: Patient Exam Limitations: Intoxication Past History - Past Medical History Allergies/Adverse Reactions: Allergies Allergy/AdvReac Type Severity Reaction Status Date / Time Fish Containing Products Allergy Mild Swelling Verified 02/25/19 18:28 No Known Drug Allergies Allergy Verified 02/25/19 18:28 Home Medications: Ambulatory Orders NK [No Known Home Medication] 02/07/19 Anemia: No Asthma: No Cancer: Yes (mesothelioma lung cancer) Cardiac Disorders: No CVA: No COPD: No CHF: No DVT: No Dementia: No Diabetes: No Dialysis: No GI Disorders: No Disorders: No HTN: Yes (non compliance) Hypercholesterolemia: Yes Kidney Stones: No Liver Disease: Yes (ETOH abuse) Psychiatric Problems: Yes (ETOH abuse) Seizures: No Thyroid Disease: No Lung CA: Yes (Mesothelioma) - Surgical History Abdominal Surgery: No Appendectomy: No Cardiac Surgery: No Cholecystectomy: No Lung Surgery: No Neurologic Surgery: No Orthopedic Surgery: No - Family Disease History Family Disease History: CA: Mother - Reproductive History Testicular Surgery: No - Immunization History TDAP Vaccination: Yes Immunization Up to Date: Yes - Suicide/Smoking/Psychosocial Hx Smoking Status: No Smoking History: Never smoked Have you smoked in the past 12 months: No Number of Cigarettes Smoked Daily: 0 If you are a former smoker, when did you quit?: 0 Cigars Per Day: 0 'Breaking Loose' booklet given: 09/22/17 Hx Alcohol Use: Yes (alohol abuse) Drug/Substance Use Hx: No Substance Use Type: Alcohol (vodka 1pint daily) Hx Substance Use Treatment: Yes *Physical Exam - Vital Signs Last Vital Signs Temp Pulse Resp BP Pulse Ox 97.6 F 85 18 118/80 99 02/25/19 18:25 02/25/19 18:25 02/25/19 18:25 02/25/19 18:25 02/25/19 18:25 - Physical Exam General Appearance: Yes: Disheveled, Intoxicated. No: Apparent Distress Respiratory/Chest: positive: Lungs Clear, Normal Breath Sounds. negative: Respiratory Distress Cardiovascular: positive: Regular Rhythm, Regular Rate, S1, S2. negative: Murmur Gastrointestinal/Abdominal: positive: Soft. negative: Tender Extremity: positive: Other (no evidence of trauma) Medical Decision Making - Medical Decision Making 64 y/o M hx of mesothelioma, chronic back pain, EtOH abuse was BIBEMS for alcohol intox, last drink was this AM. Patient with multiple visits to ED for similar complaint. Patient mentions interest in detox but does not want to go to [facility]. Denies sob, cp, abd pain, vomiting, any new trauma. Intox - will reassess once sober 02/25/19 19:41 Patient sleeping since coming to ED Pending sobriety Signed out to Dr Montgomery 02/26/19 01:52 *DC/Admit/Observation/Transfer Diagnosis at time of Disposition: Alcohol intoxication Qualifiers: Complication of substance-induced condition: uncomplicated Qualified Code(s): F10.920 - Alcohol use, unspecified with intoxication, uncomplicated - Referrals - Patient Instructions - Post Discharge Activity
[2019-02-26] MEDS ORDERED: chlordiazePOXIDE HCL 25 MG CAPSULE PO ONE ×2 (06:22→10:09)
[2019-02-26] MEDS ORDERED: chlordiazePOXIDE HCL 25 MG CAPSULE ONE ×2 (06:32→10:42)
--- NOTE | 2019-02-26 07:08 | PDOC ---
*Physical Exam - Vital Signs Last Vital Signs Temp Pulse Resp BP Pulse Ox 98.0 F 107 H 20 142/97 96 02/26/19 05:38 02/26/19 05:38 02/26/19 05:38 02/26/19 05:38 02/26/19 05:38 ED Treatment Course - LABORATORY CBC & Chemistry Diagram: 02/26/19 08:45 02/26/19 13:40 Medical Decision Making - Medical Decision Making 02/26/19 06:32 s/o from [facility] [place] 64 yo male pmh mesothelioma, chronic back pain, EtOH abuse was BIBEMS for alcohol intox, last drink was this AM. Pt well known to the ED for intox. Pt requesting Detox however does not want to [facility]. Explained multiple times that [facility] is the only detox option available at this time. Pt has no medical complaints at this time Pt request librium after feeling shaky. will reassess and DC when sober 02/26/19 07:08 Pt ambulates with staggered gait to the bathroom and continues sleeping in the ED will s/o pt to day team for DC when clinically sober *DC/Admit/Observation/Transfer Diagnosis at time of Disposition: Chest pain, Alcohol withdrawal Alcohol intoxication Qualifiers: Complication of substance-induced condition: uncomplicated Qualified Code(s): F10.920 - Alcohol use, unspecified with intoxication, uncomplicated - Discharge Dispostion Disposition: AGAINST MEDICAL ADVICE Condition at time of disposition: Stable Decision to Admit order: No - Referrals - Patient Instructions - Post Discharge Activity
--- NOTE | 2019-02-26 08:36 | PDOC ---
*Physical Exam - Vital Signs Last Vital Signs Temp Pulse Resp BP Pulse Ox 98.0 F 107 H 20 142/97 96 02/26/19 05:38 02/26/19 05:38 02/26/19 05:38 02/26/19 05:38 02/26/19 05:38 - Physical Exam Comments: 02/26/19 08:31 General Appearance: Nourished. No Apparent Distress HEENT: EOMI, DOUGLAS. No Pharyngeal Erythema, Tonsillar Exudate, Tonsillar Erythema Neck: No Cervical Lymphadenopathy Respiratory/Chest: Lungs Clear, Normal Breath Sounds. No Crackles, Rales, Rhonchi, Wheezing Cardiovascular: Regular Rhythm, Regular Rate. No Murmur, Gallops, Rubs Gastrointestinal/Abdominal: Normal Bowel Sounds, Soft. Epigastric tenderness to palpation on exam. No Guarding, Rebound Musculoskeletal: No CVA Tenderness Extremity: Normal Capillary Refill Integumentary: Normal Color, Dry, Warm Neurologic: Fully Oriented, Alert, Normal Mood/Affect, Normal Response, ED Treatment Course - LABORATORY CBC & Chemistry Diagram: 02/26/19 08:45 02/26/19 13:40 - RADIOLOGY Radiology Studies Ordered: Category Date Time Status CERVICAL SPINE CT W/O CONTR [CT] Stat CT Scan 02/26/19 08:[address] WITHOUT CONTRAST [CT] Stat CT Scan 02/26/19 08:28 Ordered CHEST - PA [RAD] Stat Radiology 02/26/19 08:29 Ordered - Medications Given in the ED: ED Medications Discontinued Medications Generic Name Dose Route Start Last Admin Trade Name Freq PRN Reason Stop Dose Admin Chlordiazepoxide HCl 100 mg 02/26/19 06:22 02/26/19 06:44 Librium - PO 02/26/19 06:23 100 mg ONCE ONE Administration Medical Decision Making - Medical Decision Making 02/26/19 08:34 On reassessment, the patient reports 10/10 chest pain that he describes as sharp in quality. He also notes that he fell 1 day ago with reported head trauma. Given the patient's medical history and new symptoms, we will obtain a cbc, cmp, troponin, chest plain film, head and cervical CT to evaluate further. 02/26/19 11:22 cbc, cmp, troponin, were unremarkable. Head and cervical CT demonstrated no acute process. Chest plain film demonstrated no acute process. The patient continues to report pain and tremors and appears to be in alcohol withdrawal. He will require admission for further monitoring and management. *DC/Admit/Observation/Transfer Diagnosis at time of Disposition: Alcohol intoxication Qualifiers: Complication of substance-induced condition: uncomplicated Qualified Code(s): F10.920 - Alcohol use, unspecified with intoxication, uncomplicated Chest pain Qualifiers: Chest pain type: unspecified Qualified Code(s): R07.9 - Chest pain, unspecified Alcohol withdrawal Qualifiers: Complication of substance-induced condition: with unspecified complication Qualified Code(s): F10.239 - Alcohol dependence with withdrawal, unspecified - Discharge Dispostion Disposition: AGAINST MEDICAL ADVICE Condition at time of disposition: Stable - Referrals - Patient Instructions - Post Discharge Activity
[2019-02-26 08:53] LABS: BASO % 1.4 % (0-2.0); EOS % 1.2 % (0-4.5); HEMATOCRIT 32.8 % (35.4-49); HEMOGLOBIN 10.4 GM/dL (11.7-16.9); LYMPH % 20.3 % (8-40); MCH 26.9 pg (25.7-33.7); MCHC 31.8 g/dl (32.0-35.9); MEAN CELL VOLUME 84.7 fl (80-96); MEAN PLT VOLUME 7.7 fl (7.5-11.1); MONO % 6.3 % (3.8-10.2); NEUT % 70.8 % (42.8-82.8); PLATELET COUNT 156 K/MM3 (134-434); RBC 3.87 M/mm3 (4.00-5.60); RDW 21.2 % (11.9-15.9); WHITE BLOOD COUNT 4.7 K/mm3 (4.0-10.0)
[2019-02-26 09:25] LABS: BLOOD UREA NITROGEN 6.1 mg/dL (7-18); CALCIUM 8.5 mg/dL (8.5-10.1); CREATININE 0.6 mg/dL (0.55-1.3); POTASSIUM 3.4 mmol/L (3.5-5.1); TOT PROT 6.3 g/dl (6.4-8.2)
[2019-02-26 10:05] LABS: ANISOCYTOSIS 1+; MACROCYTOSIS 0; PLATELET ESTIMATE DECREASED
[2019-02-26] MEDS ORDERED: diazePAM CARPU-JECT 10 MG/2 ML DISP.SYRIN IVPUSH ONE (12:28)
[2019-02-26] MEDS ORDERED: ASPIRIN 325 MG ENTERIC COATED TABLET (FP) PO ONE (13:04)
[2019-02-26] MEDS ORDERED: LORazepam 2 MG/ML SDV VIAL IVPUSH PRN (13:21)
[2019-02-26] MEDS ORDERED: diazePAM CARPU-JECT 10 MG/2 ML DISP.SYRIN ONE (13:26)
[2019-02-26] MEDS ORDERED: ASPIRIN 325 MG TABLET ONE (13:27)
--- NOTE | 2019-02-26 13:47 | HP ---
CHIEF COMPLAINT: Chest Pain, Withdrawals PCP: Dr. Gene Bridges HISTORY OF PRESENT ILLNESS: 64 y/o M with PMHx of mesothelioma lung cancer, EtOH use disorder (Multiple AMA' s for intoxication), HTN (not compliant) who presents with intoxication and chest pain. Patient mentions that he was in his usual state of health earlier yesterday, tolerating PO intake however he mentions he may have drank 2 pints of vodka (his usual is 1 pint daily). In the Evening, he recalls blacking out and possibly hitting head with his next recollection being in [facility]. Upon wakening and reassessment in ED (as per EMR), patient complained of sudden onset 10/10 chest pain. He describes his chest pain as midsternal, reproducible with radiation to both of his b/l upper extremity. He has had this pain many times in the past but feels like he was punched in the chest. He is unable to identify a trigger and denies any reliveing factor. Additionally he complains of abdominal pain, headache, chills and vomiting. ER course was notable for: (1) Librium 50mg x1, 100mg x1 (2) (3) Recent Travel: Denies PAST MEDICAL HISTORY: As above PAST SURGICAL HISTORY: Denies Social History: Smoking: Denies Alcohol: 1-2 pints daily for many years Drugs: Denies Family History: Discussed with patient, denies Allergies Fish Containing Products Allergy (Mild, Verified 02/25/19 18:28) Swelling No Known Drug Allergies Allergy (Verified 02/25/19 18:28) HOME MEDICATIONS: Home Medications Medication Instructions Recorded NK [No Known Home Medication] 02/07/19 REVIEW OF SYSTEMS As per HPI PHYSICAL EXAMINATION Vital Signs - 24 hr 02/25/19 02/26/19 02/26/19 18:25 05:38 10:39 Temperature 97.6 F 98.0 F 97.9 F Pulse Rate 85 Pulse Rate [ 107 H 101 H Radial] Respiratory 18 20 20 Rate Blood Pressure 118/80 Blood Pressure 142/97 151/82 [Right Arm] O2 Sat by Pulse 99 96 96 Oximetry (%) 02/26/19 12:58 Temperature 97.7 F Pulse Rate Pulse Rate [ 97 H Radial] Respiratory 20 Rate Blood Pressure Blood Pressure 147/82 [Right Arm] O2 Sat by Pulse 96 Oximetry (%) GENERAL: A&Ox3, NAD, Mild distress, Disheveled HEAD: NCAT EYES: PERRL, EOMI ENT: Moist mucous membranes NECK: Supple, No JVD LUNGS: CTAB. No wheezes, no crackles. HEART: Regular rate and rhythm, normal S1 and S2 without murmur ABDOMEN: Soft, nontender, nondistended, + bowel sounds, no guarding, no rebound EXTREMITIES: 1+ pitting edema NEUROLOGICAL: Cranial nerves II-XII intact. Gross sensation intact throughout, 5 /5 muscle strength throughout. PSYCHIATRIC: Cooperative. CIWA 18, upper extremity tremors at rest SKIN: Warm, dry Laboratory Results - last 24 hr 02/26/19 02/26/19 02/26/19 08:45 08:45 08:45 WBC 4.7 RBC 3.87 L Hgb 10.4 L Hct 32.8 L MCV 84.7 MCH 26.9 MCHC 31.8 L RDW 21.2 H Plt Count 156 D MPV 7.7 Absolute Neuts (auto) 3.3 Neutrophils % 70.8 Lymphocytes % 20.3 D Monocytes % 6.3 Eosinophils % 1.2 Basophils % 1.4 Nucleated RBC % 0 Hypochromia 0 Platelet Estimate Decreased Polychromasia 0 Poikilocytosis 0 Anisocytosis 1+ Microcytosis 1+ Macrocytosis 0 Sodium 144 Potassium 3.4 L Chloride 101 Carbon Dioxide 34 H Anion Gap 9 BUN 6.1 L Creatinine 0.6 Est GFR (CKD-EPI)AfAm 123.15 Est GFR (CKD-EPI)NonAf 106.25 Random Glucose 84 Calcium 8.5 Total Bilirubin 1.0 AST 71 H ALT 29 Alkaline Phosphatase 124 H Creatine Kinase 166 Creatine Kinase Index 2.0 CK-MB (CK-2) 3.4 Troponin I < 0.02 Total Protein 6.3 L Albumin 3.0 L Alcohol, Quantitative 02/26/19 08:45 WBC RBC Hgb Hct MCV MCH MCHC RDW Plt Count MPV Absolute Neuts (auto) Neutrophils % Lymphocytes % Monocytes % Eosinophils % Basophils % Nucleated RBC % Hypochromia Platelet Estimate Polychromasia Poikilocytosis Anisocytosis Microcytosis Macrocytosis Sodium Potassium Chloride Carbon Dioxide Anion Gap BUN Creatinine Est GFR (CKD-EPI)AfAm Est GFR (CKD-EPI)NonAf Random Glucose Calcium Total Bilirubin AST ALT Alkaline Phosphatase Creatine Kinase Creatine Kinase Index CK-MB (CK-2) Troponin I Total Protein Albumin Alcohol, Quantitative 55.3 H Active Medications Aspirin (Asa -) 81 mg PO DAILY CAREY Enoxaparin Sodium (Lovenox -) 40 mg SQ DAILY CAREY Folic Acid (Folic Acid -) 1 mg PO DAILY CAREY Folic Acid 1 mg/ Thiamine HCl 100 mg/ Multivitamins/Minerals 10 ml/ Sodium Chloride 1,000 mls @ 125 mls/hr IVPB ONCE ONE Stop: 02/26/19 21:03 Lorazepam (Ativan Injection -) 2 mg IVPUSH Q4H PRN PRN Reason: WITHDRAWAL(CONT SUBST) Multivitamins/Minerals/Vitamin C (Tab-A-Vit -) 1 tab PO DAILY CAREY Thiamine HCl (Vitamin B1 -) 100 mg PO DAILY CAREY IMAGING: -CXR: A single AP view of the chest is been submitted. Since the prior study of 01/13/2019 there is no significant change. Again noted is the prominent mediastinum with no sign of infiltrate or failure. Costophrenic angles are sharp. The soft tissues are intact. There are degenerative changes. There is old trauma involving the right shoulder and distal left clavicle. Correlation recommended. -Head CT without contrast: No CT evidence of acute intracranial pathology. The intracranial structures demonstrate no definite interval change in comparison to a prior CT exam of 02/01/2019. A small amount of fluid is again seen within the mastoid air cells bilaterally. Bilateral chronic nasal fractures are again noted. -C-Spine CT without contrast: No fracture is identified. ASSESSMENT/PLAN: 64 y/o M with PMHx of mesothelioma lung cancer, EtOH use disorder (Multiple AMA' s for intoxication), HTN (not compliant) who presents with intoxication and chest pain. #Chest pain -Likely MSK however will r/o ACS -Trop <0.02, Will Trend x 3 -EKG with possible TWI in V1-V3, seen on prior; Serial EKG -Given ASA 324mg now, continue on 81mg daily -Tele -Cardio Consulted #Alcohol withdrawal -In the setting of EtOH Use disorder (1-2 Pints Daily, multiple visits to [facility] and [facility] for detox) -Mild elevation in LFTs -Lorazepan 2mg Q4H for CIWA > 8 -CIWA score Q2H, monitor for withdrawal symptoms -Thiamine/MVI/Folate -Continue IV hydration via Banana bag -Fall precautions #Prolonged QTc -Avoid QT prolonging medications -Check Mag and replete if indication -Mag level 1.1, Repleted #Hypokalemia -Replete #HypoMagnesium -Replete #Headache -Likely due to fall in the setting of EtOH withdrawal -Imaging noted above wihtout any hemorrhage or fx -Acetaminophen for pain #Tachycardia -Likely related to EtOH withdrawal -Treat withdrawal and continue to monitor #Normocytic anemia -Continue to monitor #Hypoalbuminemia -Likely due to malnutrition in morbid obesity; Less likely liver pathology -Will Consider nutrition consult and possibly outpatient dietary follow up #FEN -Banana Bag bolus -Replete Lytes PRN -Soft diet #PPx -DVT: Lovenox Dispo: Tele-Obs Visit type - Emergency Visit Emergency Visit: Yes ED Registration Date: 02/26/19 Care time: The patient presented to the Emergency Department on the above date and was hospitalized for further evaluation of their emergent condition. - New Patient This patient is new to me today: Yes Date on this admission: 02/26/19 - Critical Care Critical Care patient: No ATTENDING PHYSICIAN STATEMENT I saw and evaluated the patient. I reviewed the resident's note and discussed the case with the resident. I agree with the resident's findings and plan as documented. SUBJECTIVE: OBJECTIVE: ASSESSMENT AND PLAN:
[2019-02-26] MEDS ORDERED: FOLIC ACID INJECTION - 1 MG, THIAMINE HCL 100 MG, MULTIVIT INJECTION ADULT 10 ML in SOD... IVPB ONE (14:00)
[2019-02-26 14:43] LABS: MAGNESIUM 1.1 mg/dL (1.8-2.4); POTASSIUM 3.2 mmol/L (3.5-5.1)
--- NOTE | 2019-02-26 14:56 | EKG ---
Test Reason : Blood Pressure : / mmHG Vent. Rate : 098 BPM Atrial Rate : 098 BPM P-R Int : 168 ms QRS Dur : 092 ms QT Int : 386 ms P-R-T Axes : 023 -46 021 degrees QTc Int : 492 ms NORMAL SINUS RHYTHM LEFT AXIS DEVIATION NONSPECIFIC ST AND T WAVE ABNORMALITY PROLONGED QT ABNORMAL ECG WHEN COMPARED WITH ECG OF 06-FEB-2019 23:34, SINUS RHYTHM HAS REPLACED JUNCTIONAL RHYTHM Confirmed by MD LAWRENCE, WALTER ([id number]) on 02/26/2019 2:56:28 PM Referred By: Confirmed By:WALTER BRAVO MD
--- NOTE | 2019-02-26 16:37 | PN ---
Teaching Attending Note Name of Resident: Jocelyn Flores ATTENDING PHYSICIAN STATEMENT I saw and evaluated the patient. I reviewed the resident's note and discussed the case with the resident. I agree with the resident's findings and plan as documented. SUBJECTIVE: Complains of intermittent Chest Pain. OBJECTIVE: Afebrile, Hemodynamicaly stable. Unkempt. Malodorous. Last Vital Signs Temp Pulse Resp BP Pulse Ox 97.7 F 97 H 20 147/82 96 02/26/19 12:58 02/26/19 12:58 02/26/19 12:58 02/26/19 12:58 02/26/19 12:58 HEENT - Atramatic, Normocephalic. Flushed Heart - S1, S2, RRR Lungs - clear to auscultation Abdomen - distended due to high BMI. Soft, mild generalized tenderness. Extremities - Edema +. No calf tenderness. Ronnie - AAO x 3. Normal power all extremities. Laboratory Results - last 24 hr 02/26/19 02/26/19 02/26/19 08:45 08:45 08:45 WBC 4.7 RBC 3.87 L Hgb 10.4 L Hct 32.8 L MCV 84.7 MCH 26.9 MCHC 31.8 L RDW 21.2 H Plt Count 156 D MPV 7.7 Absolute Neuts (auto) 3.3 Neutrophils % 70.8 Lymphocytes % 20.3 D Monocytes % 6.3 Eosinophils % 1.2 Basophils % 1.4 Nucleated RBC % 0 Hypochromia 0 Platelet Estimate Decreased Polychromasia 0 Poikilocytosis 0 Anisocytosis 1+ Microcytosis 1+ Macrocytosis 0 Sodium 144 Potassium 3.4 L Chloride 101 Carbon Dioxide 34 H Anion Gap 9 BUN 6.1 L Creatinine 0.6 Est GFR (CKD-EPI)AfAm 123.15 Est GFR (CKD-EPI)NonAf 106.25 Random Glucose 84 Calcium 8.5 Magnesium Total Bilirubin 1.0 AST 71 H ALT 29 Alkaline Phosphatase 124 H Creatine Kinase 166 Creatine Kinase Index 2.0 CK-MB (CK-2) 3.4 Troponin I < 0.02 Total Protein 6.3 L Albumin 3.0 L Alcohol, Quantitative 02/26/19 02/26/19 08:45 13:40 WBC RBC Hgb Hct MCV MCH MCHC RDW Plt Count MPV Absolute Neuts (auto) Neutrophils % Lymphocytes % Monocytes % Eosinophils % Basophils % Nucleated RBC % Hypochromia Platelet Estimate Polychromasia Poikilocytosis Anisocytosis Microcytosis Macrocytosis Sodium Potassium 3.2 L Chloride Carbon Dioxide Anion Gap BUN Creatinine Est GFR (CKD-EPI)AfAm Est GFR (CKD-EPI)NonAf Random Glucose Calcium Magnesium 1.1 L Total Bilirubin AST ALT Alkaline Phosphatase Creatine Kinase Creatine Kinase Index CK-MB (CK-2) Troponin I < 0.02 Total Protein Albumin Alcohol, Quantitative 55.3 H Current Medications Generic Name Dose Route Start Last Admin Trade Name Freq PRN Reason Stop Dose Admin Aspirin 81 mg 02/27/19 10:00 Asa - PO DAILY [facility] Enoxaparin Sodium 40 mg 02/27/19 10:00 Lovenox - SQ DAILY [facility] Folic Acid 1 mg 02/27/19 10:00 Folic Acid - PO DAILY [facility] Folic Acid 1 mg/ Thiamine HCl 1,000 mls @ 125 mls/hr 02/26/19 14:00 100 mg/ Multivitamins/Minerals IVPB 02/26/19 21:59 10 ml/ Sodium Chloride ONCE ONE Lorazepam 2 mg 02/26/19 13:21 Ativan Injection - IVPUSH Q4H PRN WITHDRAWAL(CONT SUBST) Multivitamins/Minerals/Vitamin C 1 tab 02/27/19 10:00 Tab-A-Vit - PO DAILY [facility] Thiamine HCl 100 mg 02/27/19 10:00 Vitamin B1 - PO DAILY [facility] Home Medications Medication Instructions Recorded NK [No Known Home Medication] 02/07/19 ASSESSMENT AND PLAN: 64 year old male with history of Mesothelioma Lung Cancer, Alcohol excess, HTN ( non-compliant with medications), Hx Paroxysmal Atrial fibrillation, presents with alcohol intoxication, spent overnight in ED and then developed withdrawal symptoms with chest pain, with associated nausea. No vomiting. no cough/sputum/ fever/chills. 1. Atypical Chest Pain ECG - NSR, inverted T waves anterior leads. TropI neg Will admit to telemetry, load with ASA, and trend serial troponins. Last Echo 08/2018 - LVH, normal EF Consult Cardiology 2. Hx paroxysmal Atrial Fibrillation Seen by Cardiology Mylene Olmedo in 08/2018 - started on toprol, non-compliant. Not started on AC due to high fall risk due to Hx alcohol excess. 3. Acute Alcohol Withdrawal - mild tremor, no hallucinations/diaphoresis/ tachycardia/seizures. Reports fall and HI due to alcohol intoxication - CT Head/C-spine negative; bilateral chronic nasal fractures. Lorazepam prn for withdrawal symptoms Librium not given due to mild elevation in LFTs. Telemonitoring and electrolyte monitoring. Banana Bag X 1 Thiamine, MVI, Folate. IV hydration. 4. Hypomagnesemia - repleted. 5. Anemia - normocytic. Will order anemia work-up. DVT Px - Lovenox SQ
[2019-02-26] MEDS ORDERED: MAGNESIUM SULF 50% (8.12 MEQ/2 ML-1 GM VIAL) IVPB ONE (17:26)
[2019-02-26] MEDS ORDERED: MAGNESIUM OXIDE 400 MG TABLET (FP) PO ONE (17:26)
[2019-02-26] MEDS ORDERED: POTASSIUM CHLORIDE TABS 20 MEQ TABLET.ER (FP) PO ONE (17:27)
[2019-02-26] MEDS ORDERED: SODIUM CHLORIDE 1,000 ML IV SCH (17:30)
[2019-02-26] MEDS ORDERED: SODIUM CHLORIDE 1,000 ML IV STA (17:31)
[2019-02-26 19:31] LABS: IRON SERUM 77 ug/dL (50-175); PHOSPHOROUS 3.3 mg/dL (2.5-4.9); TOTAL IRON BINDING CAPACITY 416 ug/dL (250-450)
[2019-02-26 19:36] VITALS: BMI 33.0
[2019-02-26] MEDS: KCL 10 MEQ IVPB 10 MEQ/100 ML INFUS.BAG IVPB SCH (19:50)
[2019-02-27 06:11] VITALS: TEMP 98.6
[2019-02-27 09:05] VITALS: BP 142/90; PULSE 78
[2019-02-27] MEDS ORDERED: ASPIRIN 81 MG CHEWABLE TABLETS PO SCH (10:00)
[2019-02-27] MEDS ORDERED: MULTIVITAMINS (DAILY MVI) TABLET (FP) PO SCH (10:00)
[2019-02-27] MEDS ORDERED: FOLIC ACID 1 MG TABLET (FP) PO SCH (10:00)
[2019-02-27] MEDS ORDERED: THIAMINE HCL 100 MG TABLET (FP) PO SCH (10:00)
[2019-02-27] MEDS ORDERED: ENOXAPARIN NA (PORCINE) 40 MG/0.4 ML DISP.SYRIN SQ SCH (10:00)
--- NOTE | 2019-02-27 10:22 | CON.CARD ---
Consult Consult Specialty:: Cardiology Referred by:: Dr. Akers Reason for Consultation:: chest pain - History of Present Illness Chief Complaint: Syncope and chest pain History of Present Illness: Poor historian: ER records reviewed "64 y/o M with PMHx of mesothelioma lung cancer, EtOH use disorder (Multiple AMA 's for intoxication), HTN (not compliant) who presents with intoxication and chest pain. Patient mentions that he was in his usual state of health earlier yesterday, tolerating PO intake however he mentions he may have drank 2 pints of vodka (his usual is 1 pint daily). In the Evening, he recalls blacking out and possibly hitting head with his next recollection being in [facility]. Upon wakening and reassessment in ED (as per EMR), patient complained of sudden onset 10/10 chest pain. He describes his chest pain as midsternal, reproducible with radiation to both of his b/l upper extremity. He has had this pain many times in the past but feels like he was punched in the chest. He is unable to identify a trigger and denies any reliveing factor. Additionally he complains of abdominal pain, headache, chills and vomiting. " Upon my hx, he states he came to ER because he passed out after drinking too much. Denies CP or SOB at this time. Reports having a cardiac cath ( specifically via the right radial approach) which he states revealed no sig CAD - although he is unable to state when and where. TELE: NSR. PMH: Seen in spring 2018 by our group for AF w/ RVR- rate controlled and AC deferred given poor compliance and ETOHism Known ascending aortic dilatation, mild on echo spring 2018 - History Source History Provided By: Patient, Medical Record - Past Medical History Cardio/Vascular: Yes: HTN Pulmonary: Yes: Other (Mesothelioma) Gastrointestinal: No: Ascites, Cancer, Constipation, Crohn's Disease, Diverticulitis, Diverticulosis, Esophageal Varices, Gastritis, GERD, GI Bleed, Hemorrhoids, Hiatal Hernia, Inflamatory Bowel Disease, Irritable Bowel Disease, Pancreatitis, Peptic Ulcer Disease, Ulcerative Colitis, Other Hepatobiliary: No: Cirrhosis, Cholelithiasis, Cholecystitis, Choledocholithiasis , Hepatitis A, Hepatitis B, Hepatitis C, Other Renal/: No: Renal Failure, Renal Inusuff, BPH, Cancer, Hematuria, Hemodialysis , Neurogenic Bladder, Renal Calculi, UTI, Other Psych: Yes: Addictions Musculoskeletal: Yes: Chronic low back pain - Past Surgical History Past Surgical History: Yes: None - Alcohol/Substance Use Hx Alcohol Use: Yes (alohol abuse) History of Substance Use: reports: None - Smoking History Smoking history: Never smoked Have you smoked in the past 12 months: No Aproximately how many cigarettes per day: 0 If you are a former smoker, when did you quit?: 0 - Social History ADL: Support Services Occupation: Patient is on SSI, 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 History of Recent Travel: No Home Medications - Allergies Allergies/Adverse Reactions: Allergies Allergy/AdvReac Type Severity Reaction Status Date / Time Fish Containing Products Allergy Mild Swelling Verified 02/25/19 18:28 No Known Drug Allergies Allergy Verified 02/25/19 18:28 - Home Medications Home Medications: Ambulatory Orders NK [No Known Home Medication] 02/07/19 Family Disease History - Family Disease History Family Disease History: CA: Mother (), Brother (Colon CA), Other: Grandparent (ALCOHOLISM), Father (ALCOHOL,), Son () Review of Systems Findings/Remarks: see HPI - Review of Systems Constitutional: reports: No Symptoms Eyes: reports: No Symptoms HENT: reports: No Symptoms Neck: reports: No Symptoms Cardiovascular: reports: Chest Pain Respiratory: reports: SOB (chronic) Gastrointestinal: reports: No Symptoms Genitourinary: reports: No Symptoms Breasts: reports: No Symptoms Reported Musculoskeletal: reports: No Symptoms Integumentary: reports: No Symptoms Neurological: reports: No Symptoms Endocrine: reports: No Symptoms Hematology/Lymphatic: reports: No Symptoms Psychiatric: reports: No Symptoms - Risk Factors Known Risk Factors: Yes: Physical Inactivity Vital Signs: Vital Signs Temperature 98.6 F 02/27/19 09:02 Pulse Rate 78 02/27/19 09:02 Respiratory Rate 20 02/27/19 09:02 Blood Pressure 142/90 02/27/19 09:02 O2 Sat by Pulse Oximetry (%) 93 L 02/27/19 05:00 Constitutional: Yes: Calm Respiratory: Yes: CTA Bilaterally Gastrointestinal: Yes: Soft Cardiovascular: Yes: Regular Rate and Rhythm JVD: No Carotid Bruit: No Heart Sounds: Yes: S1, S2 (rrr, no M/R/G) Edema: No Peripheral Pulses WNL: Yes Neurological: Yes: Alert, Oriented - Other Data Labs, Other Data: CBC, BMP 02/26/19 08:45 02/26/19 13:40 Troponin, BNP 02/26/19 02/26/19 13:40 20:25 Troponin I < 0.02 < 0.02 Troponin, BNP 02/26/19 02/26/19 13:40 20:25 Troponin I < 0.02 < 0.02 Laboratory Tests 02/26/19 02/26/19 02/26/19 08:45 08:45 08:45 WBC 4.7 Hgb 10.4 L Plt Count 156 D Potassium 3.4 L Creatinine 0.6 Troponin I < 0.02 Alcohol, Quantitative 02/26/19 02/26/19 08:45 13:40 WBC Hgb Plt Count Potassium 3.2 L Creatinine Troponin I < 0.02 Alcohol, Quantitative 55.3 H nsr, LAD, Prolonged QT, NSST changes Imaging - Results Chest X-ray: Report Reviewed X-ray: Report Reviewed, Image Reviewed Cat Scan: Report Reviewed, Image Reviewed EKG: Image Reviewed Assessment/Plan IMP: Alcoholism Suspected mild ETOH withdrawal ?Syncope in setting of ETOH intoxication Chest pain with negative serial cardiac enzymes and benign ECG Known hx PAF with normal LVEF Ascending aortic aneurysm, mild REC: 1. Continue Rx for ETOH withdrawal 2. Resume Toprol XL for h/o PAF (help maintain NSR and for his mild HTN and h/o thoracic aortic dilatation). Cont ASA. Not a candidate for full AC duet to poor compliance and alcoholism (risks>> benefits). [id number] score = 1, thus ASA is acceptable treatment for stroke/ thromboembolic protection. 3. Repeat echo in AM for surveillance thoracic aorta and to assure no change in EF or wall motion. If echo WNL, would continue medical Rx for HTN. Can consider stress MPI prior to d/c when stable from ETOH withdrawal standpoint in effort to further risk stratify.
[2019-02-27] MEDS ORDERED: metoPROLOL SUCCINATE 25 MG TAB.SR.24H (FP) PO SCH (10:45)
--- NOTE | 2019-02-27 12:40 | DS ---
Physical Exam: SUBJECTIVE: reported intermittent Chest Pain. Wants to leave AMA. OBJECTIVE: Afebrile, Hemodynamicaly stable. Unkempt. Malodorous. Last Vital Signs Temp Pulse Resp BP Pulse Ox 98.6 F 78 20 142/90 93 L 02/27/19 09:02 02/27/19 09:02 02/27/19 09:02 02/27/19 09:02 02/27/19 05:00 HEENT - Atramatic, Normocephalic. Heart - S1, S2, RRR Lungs - clear to auscultation Abdomen - distended due to high BMI. Soft, mild generalized tenderness. Extremities - Edema +. No calf tenderness. Ronnie - AAO x 3. Normal power all extremities. Laboratory Results - last 24 hr 02/26/19 02/26/19 13:40 20:25 Potassium 3.2 L Phosphorus 3.3 Magnesium 1.1 L Iron 77 TIBC 416 Iron Saturation 18 Unsaturated IBC 339 H Troponin I < 0.02 < 0.02 Vitamin B12 257 Serum Folate 5 Discharge Medications Medication Instructions Recorded Cyanocobalamin (Vitamin B-12) 1,000 mcg PO DAILY 30 Days #30 02/27/19 [B-12] tablet Folic Acid - 1 mg PO DAILY 30 Days #30 tablet 02/27/19 Multivitamins [Multivit ([facility] 1 tab PO DAILY 30 Days #30 tab 02/27/19 Formulary)] Thiamine HCl [Vitamin B1 -] 100 mg PO DAILY 30 Days #30 tablet 02/27/19 Date of Admission:02/26/19 Left AMA: 02/27/19 Minutes to complete discharge: 40 Discharge Summary Reason For Visit: ALCOHOL WITHDRAWAL SYNDROM/CHEST PAIN Hospital Course: 64 year old male with history of Mesothelioma Lung Cancer, Alcohol excess, HTN ( non-compliant with medications), Hx Paroxysmal Atrial fibrillation, presents with alcohol intoxication, spent overnight in ED and then developed withdrawal symptoms with chest pain, with associated nausea. No vomiting. no cough/sputum/ fever/chills. Today he remains AAO x 3 without tremor or diaphoresis. No evidence of acute alcohol withdrawal at this time. He expressed his wish to leave against medical advice and signed appropriate paperwork indicating that he understood risks as explained to him including heart attack, collapse, head injury, seizure, disability, . He was of sound mind with medical competence to make informed decisions at the time he left AMA. 1. Atypical Chest Pain ECG - NSR, inverted T waves anterior leads. TropI neg Serial tropI neg Last Echo 08/2018 - LVH, normal EF Seen by cardiology who recommended Echo and possible stress prior to discharge. Patient declined and left AMA 2. Hx paroxysmal Atrial Fibrillation Seen by Cardiology in 08/2018 - started on toprol, non-compliant. Not started on AC due to high fall risk due to Hx alcohol excess. Cardiology on this occasion also recommends Aspirin and Metoprolol, with which he was non-compliant in the past. patient again declined and left AMA. 3. Acute Alcohol Withdrawal - currently no tremor/hallucinations/diaphoresis/ tachycardia/seizures. Reports fall and HI due to alcohol intoxication - CT Head/C-spine negative; bilateral chronic nasal fractures. Declined labs this AM received Banana Bag, Thiamine, MVI, Folate. Will send prescriptions for MVI/Thiamine to pharmacy 4. Hypomagnesemia - repleted. Declined repeat labs. 5. Anemia - normocytic. B12/folate levels on low side. Will send supplementation prescriptions to pharmacy. Advised to stay to receive continued medical treatment. He was explained all risks of leaving AMA and accepted responsibility, with nursing as a witness. Condition: Stable - Instructions Diet, Activity, Other Instructions: PLEASE SEEK MEDICAL ATTENTION FOR CHEST PAIN AND MANAGEMENT OF PAROXYSMAL ATRIAL FIBRILLATION. IF YOU EXPERIENCE ANY SYMPTOMS OF ALCOHOL WITHDRAWAL INCLUDING TREMOR, SWEATING< PALPITATIONS< HALLUCINATIONS< SEIZURES< PLEASE RETURN TO ED Disposition: AGAINST MEDICAL ADVICE - Home Medications Comprehensive Discharge Medication List: discharge Medications Medication Instructions Recorded Cyanocobalamin (Vitamin B-12) 1,000 mcg PO DAILY 30 Days #30 02/27/19 [B-12] tablet Folic Acid - 1 mg PO DAILY 30 Days #30 tablet 02/27/19 Multivitamins [Multivit ([facility] 1 tab PO DAILY 30 Days #30 tab 02/27/19 Formulary)] Thiamine HCl [Vitamin B1 -] 100 mg PO DAILY 30 Days #30 tablet 02/27/19 This patient is new to me today: No Emergency Visit: Yes ED Registration Date: 02/26/19 Care time: The patient presented to the Emergency Department on the above date and was hospitalized for further evaluation of their emergent condition. Critical Care patient: No - Discharge Referral Referred to [facility] Med P.C.: No
== END 2019-02-27 10:52 | disposition left against medical advice (07) ==
LOC: JER 18:17 → JERBED 02-26 12:04 → J4W 02-26 13:58
PROC: 3E033GC Introduction of Other Therapeutic Substance into Peripheral Vein, Percutaneous Approach (ICD-10-PCS; principal; 2019-02-26)
DX: F10.220 Alcohol dependence with intoxication, uncomplicated (principal); F10.239 Alcohol dependence with withdrawal, unspecified; R07.89 Other chest pain; I10 Essential (primary) hypertension; E78.5 Hyperlipidemia, unspecified; I45.81 Long QT syndrome; R51 Headache; E87.6 Hypokalemia; R00.0 Tachycardia, unspecified; D64.89 Other specified anemias; R77.0 Abnormality of albumin; I71.2 Thoracic aortic aneurysm, without rupture; Z85.89 Personal history of malignant neoplasm of other organs and systems; Z86.79 Personal history of other diseases of the circulatory system; Z91.013 Allergy to seafood; Z91.14 Patient's other noncompliance with medication regimen; Z59.0 Homelessness; Z85.118 Personal history of other malignant neoplasm of bronchus and lung
CPT/HCPCS: 36415; 70450-TC; 71045-TC-FY; 72125-TC; 80053; 80307; 82550; 82553; 82607; 82746; 83540; 83550; 83735; 84100; 84132; 84484; 85025; 93005; 93010; 96365; 96375; 99285-25; G0378; J7030

== ENCOUNTER 2019-03-03 13:45 | Emergency (ER) | payer OTHER ==
--- NOTE | 2019-03-03 14:10 | PDOC ---
Rapid Medical Evaluation Time Seen by Provider: 03/03/19 14:08 Medical Evaluation: Allergies Allergy/AdvReac Type Severity Reaction Status Date / Time Fish Containing Products Allergy Mild Swelling Verified 02/25/19 18:28 No Known Drug Allergies Allergy Verified 02/25/19 18:28 03/03/19 14:08 Pt presents for alcohol intoxication. EMS reports alcohol consumption prior to arrival Exam: alcohol on the breath, disheveled. Orders: Nothing Pt to proceed to the ER for further evaluation Discharge Disposition - Diagnosis Alcohol intoxication Qualifiers: Complication of substance-induced condition: uncomplicated Qualified Code(s): F10.920 - Alcohol use, unspecified with intoxication, uncomplicated - Referrals - Patient Instructions - Post Discharge Activity
[2019-03-03 14:16] VITALS: BP 107/64; PULSE 91; TEMP 98.3; BMI 28.7
--- NOTE | 2019-03-03 15:49 | PDOC ---
History of Present Illness - General Chief Complaint: Alcohol intoxication Stated Complaint: ALCOHOL INTOXICATION Time Seen by Provider: 03/03/19 14:08 History Source: Patient Exam Limitations: No Limitations - History of Present Illness Initial Comments: 03/03/19 15:48 64M with a PMHx mesothelioma, chronic back pain, EtOH abuse, well known to ER, who presents for EtOH intoxication. Pt denies any current active complaints or falls. Past History - Past Medical History Allergies/Adverse Reactions: Allergies Allergy/AdvReac Type Severity Reaction Status Date / Time Fish Containing Products Allergy Mild Swelling Verified 03/03/19 14:13 No Known Drug Allergies Allergy Verified 03/03/19 14:13 Home Medications: Ambulatory Orders Cyanocobalamin (Vitamin B-12) [B-12] 1,000 mcg PO DAILY 30 Days #30 tablet 02/27 Folic Acid - 1 mg PO DAILY 30 Days #30 tablet 02/27/19 Multivitamins [Multivit ([facility] Formulary)] 1 tab PO DAILY 30 Days #30 tab Thiamine HCl [Vitamin B1 -] 100 mg PO DAILY 30 Days #30 tablet 02/27/19 Anemia: No Asthma: No Cancer: Yes (mesothelioma lung cancer) Cardiac Disorders: No CVA: No COPD: No CHF: No DVT: No Dementia: No Diabetes: No Dialysis: No GI Disorders: No Disorders: No HTN: Yes (non compliance) Hypercholesterolemia: Yes Kidney Stones: No Liver Disease: Yes (ETOH abuse) Psychiatric Problems: Yes (ETOH abuse) Seizures: No Thyroid Disease: No Lung CA: Yes (Mesothelioma) - Surgical History Abdominal Surgery: No Appendectomy: No Cardiac Surgery: No Cholecystectomy: No Lung Surgery: No Neurologic Surgery: No Orthopedic Surgery: No - Family Disease History Family Disease History: CA: Mother - Reproductive History Testicular Surgery: No - Immunization History TDAP Vaccination: Yes Immunization Up to Date: Yes - Suicide/Smoking/Psychosocial Hx Smoking Status: No Smoking History: Never smoked Have you smoked in the past 12 months: No Number of Cigarettes Smoked Daily: 0 If you are a former smoker, when did you quit?: 0 Cigars Per Day: 0 'Breaking Loose' booklet given: 09/22/17 Hx Alcohol Use: No Drug/Substance Use Hx: No Substance Use Type: Alcohol Hx Substance Use Treatment: Yes Review of Systems - Review of Systems Able to Perform ROS?: Yes Is the patient limited Divehi proficient: No Constitutional: No: Chills, Fever HEENTM: No: Eye Pain, Blurred Vision Respiratory: No: Shortness of Breath, Wheezing Cardiac (ROS): No: Chest Pain, Palpitations ABD/GI: No: Nausea, Vomiting *Physical Exam - Vital Signs Last Vital Signs Temp Pulse Resp BP Pulse Ox 98.3 F 91 H 18 107/64 98 03/03/19 14:13 03/03/19 14:13 03/03/19 14:13 03/03/19 14:13 03/03/19 14:13 - Physical Exam General Appearance: Yes: Nourished, Disheveled, Alcohol on Breath HEENT: positive: Normal Voice, Hearing Grossly Normal Respiratory/Chest: positive: Lungs Clear. negative: Chest Tender Cardiovascular: positive: Regular Rhythm, Regular Rate, S1, S2. negative: Diastolic Murmur, Systolic Murmur Gastrointestinal/Abdominal: positive: Flat, Soft, Protuberent. negative: Tender Extremity: positive: Pedal Edema Medical Decision Making - Medical Decision Making 03/03/19 15:51 64M with MMP who presents to the ER for EtOH intox and is requesting discharge. Denies falls or any active complaints. Will d/c with PCP f/u. *DC/Admit/Observation/Transfer Diagnosis at time of Disposition: Alcohol intoxication Qualifiers: Complication of substance-induced condition: uncomplicated Qualified Code(s): F10.920 - Alcohol use, unspecified with intoxication, uncomplicated - Discharge Dispostion Disposition: HOME Condition at time of disposition: Stable Decision to Admit order: No - Referrals - Patient Instructions Printed Discharge Instructions: DI for Alcohol Abuse - Post Discharge Activity
== END 2019-03-03 16:00 | disposition home or self-care (01) ==
LOC: JER 13:45
DX: F10.220 Alcohol dependence with intoxication, uncomplicated (principal); I10 Essential (primary) hypertension; C45.9 Mesothelioma, unspecified; M54.5 Low back pain; G89.29 Other chronic pain; Z59.0 Homelessness; Z91.14 Patient's other noncompliance with medication regimen
CPT/HCPCS: 99281-25

== ENCOUNTER 2019-03-04 16:57 | Emergency (ER) | payer OTHER ==
--- NOTE | 2019-03-04 17:04 | PDOC ---
Rapid Medical Evaluation Medical Evaluation: Allergies Allergy/AdvReac Type Severity Reaction Status Date / Time Fish Containing Products Allergy Mild Swelling Verified 03/03/19 14:13 No Known Drug Allergies Allergy Verified 03/03/19 14:13 I have performed a brief in-person evaluation of this patient. The patient presents with a chief complaint of: BIBEMS s/p being [place] intoxicated [place] bench; no trauma Pertinent physical exam findings: +AOB, alert, no obvious trauma noted I have ordered the following: Nothing The patient will proceed to the ED for further evaluation. 03/04/19 17:03
[2019-03-04 17:06] VITALS: BP 129/80; PULSE 92; TEMP 98.2; BMI 31.5
--- NOTE | 2019-03-04 18:18 | PDOC ---
History of Present Illness - General Chief Complaint: Alcohol intoxication Stated Complaint: Alcohol intoxication Time Seen by Provider: 03/04/19 17:03 History Source: Patient Exam Limitations: No Limitations - History of Present Illness Initial Comments: 03/04/19 19:11 Patient eloped per security who witnessed him ambulate on his own volition outside the emergency department. I was unable to assess the patient prior to the elopement. Past History - Past Medical History Allergies/Adverse Reactions: Allergies Allergy/AdvReac Type Severity Reaction Status Date / Time Fish Containing Products Allergy Mild Swelling Verified 03/03/19 14:13 No Known Drug Allergies Allergy Verified 03/03/19 14:13 Home Medications: Ambulatory Orders Cyanocobalamin (Vitamin B-12) [B-12] 1,000 mcg PO DAILY 30 Days #30 tablet 02/27 Folic Acid - 1 mg PO DAILY 30 Days #30 tablet 02/27/19 Multivitamins [Multivit ([facility] Formulary)] 1 tab PO DAILY 30 Days #30 tab Thiamine HCl [Vitamin B1 -] 100 mg PO DAILY 30 Days #30 tablet 02/27/19 Anemia: No Asthma: No Cancer: Yes (mesothelioma lung cancer) Cardiac Disorders: No CVA: No COPD: No CHF: No DVT: No Dementia: No Diabetes: No Dialysis: No GI Disorders: No Disorders: No HTN: Yes (non compliance) Hypercholesterolemia: Yes Kidney Stones: No Liver Disease: Yes (ETOH abuse) Psychiatric Problems: Yes (ETOH abuse) Seizures: No Thyroid Disease: No Lung CA: Yes (Mesothelioma) - Surgical History Abdominal Surgery: No Appendectomy: No Cardiac Surgery: No Cholecystectomy: No Lung Surgery: No Neurologic Surgery: No Orthopedic Surgery: No - Family Disease History Family Disease History: CA: Mother - Reproductive History Testicular Surgery: No - Immunization History TDAP Vaccination: Yes Immunization Up to Date: Yes - Suicide/Smoking/Psychosocial Hx Smoking Status: No Smoking History: Never smoked Have you smoked in the past 12 months: No Number of Cigarettes Smoked Daily: 0 If you are a former smoker, when did you quit?: 0 Cigars Per Day: 0 'Breaking Loose' booklet given: 09/22/17 Hx Alcohol Use: No Drug/Substance Use Hx: No Substance Use Type: Alcohol Hx Substance Use Treatment: Yes Review of Systems - Review of Systems Able to Perform ROS?: No (Unable to; patient eloped) *Physical Exam - Vital Signs Last Vital Signs Temp Pulse Resp BP Pulse Ox 98.2 F 92 H 16 129/80 100 03/04/19 17:04 03/04/19 17:04 03/04/19 17:04 03/04/19 17:04 03/04/19 17:04 - Physical Exam Comments: Unable to conduct physical exam because of elope status Medical Decision Making - Medical Decision Making Patient eloped from the department *DC/Admit/Observation/Transfer Diagnosis at time of Disposition: Eloped from emergency department - Discharge Dispostion Disposition: ELOPED Condition at time of disposition: Unchanged/Unknown - Referrals - Patient Instructions - Post Discharge Activity
--- NOTE | 2019-03-04 19:33 | PDOC ---
Attending Attestation - Resident Resident Name: DaniloKobi - ED Attending Attestation I have performed the following: I have examined & evaluated the patient, The case was reviewed & discussed with the resident, I agree w/resident's findings & plan, Exceptions are as noted - HPI HPI: 03/04/19 19:33 See Below - Physicial Exam PE: 03/04/19 19:33 See below - Medical Decision Making 03/04/19 19:33 Pt. Eloped prior to my evaluation
== END 2019-03-04 19:00 | disposition left against medical advice (07) ==
LOC: JER 16:57
DX: F10.220 Alcohol dependence with intoxication, uncomplicated (principal); I10 Essential (primary) hypertension; C45.9 Mesothelioma, unspecified; Z59.0 Homelessness; Z91.14 Patient's other noncompliance with medication regimen; Z91.013 Allergy to seafood
CPT/HCPCS: 99281-25

== ENCOUNTER 2019-03-08 21:48 | Emergency (ER) | payer OTHER ==
[2019-03-08 22:21] VITALS: BMI 33.0
--- NOTE | 2019-03-08 22:50 | PDOC ---
Attending Attestation - Resident Resident Name: Stevenson Jiang - ED Attending Attestation I have performed the following: I have examined & evaluated the patient, The case was reviewed & discussed with the resident, I agree w/resident's findings & plan - HPI HPI: 03/09/19 00:20 see resident hpi - Physicial Exam PE: 03/09/19 00:20 agree with resident exam - Medical Decision Making 03/09/19 00:21 64 yo male s/p fall and admitted ETOH abuse CT head, sober d/c if negative
--- NOTE | 2019-03-08 23:17 | PDOC ---
History of Present Illness - General Chief Complaint: Back Pain Stated Complaint: INTOX Time Seen by Provider: 03/08/19 22:47 History Source: Patient Exam Limitations: Intoxication - History of Present Illness Initial Comments: Sunil De Leon is a 64 yo M w a hx of chronic alcohol abuse, mesothelioma, suspected prior PE (01/2019) for which he refused CTA, HTN, HLD, NIDDM BIBA to ED for ETOH intoxication. Patient is not willing to speak or contribute any history. Per EMS patient fell down in the park in [place] and hit his head. Patient denies any trauma or falls. Past History - Past Medical History Allergies/Adverse Reactions: Allergies Allergy/AdvReac Type Severity Reaction Status Date / Time Fish Containing Products Allergy Mild Swelling Verified 03/08/19 22:21 No Known Drug Allergies Allergy Verified 03/08/19 22:21 Home Medications: Ambulatory Orders Cyanocobalamin (Vitamin B-12) [B-12] 1,000 mcg PO DAILY 30 Days #30 tablet 02/27 Folic Acid - 1 mg PO DAILY 30 Days #30 tablet 02/27/19 Multivitamins [Multivit ([facility])] 1 tab PO DAILY 30 Days #30 tab Thiamine HCl [Vitamin B1 -] 100 mg PO DAILY 30 Days #30 tablet 02/27/19 Anemia: No Asthma: No Cancer: Yes (mesothelioma lung cancer) Cardiac Disorders: No CVA: No COPD: No CHF: No DVT: No Dementia: No Diabetes: No Dialysis: No GI Disorders: No Disorders: No HTN: Yes (non compliance) Hypercholesterolemia: Yes Kidney Stones: No Liver Disease: Yes (ETOH abuse) Psychiatric Problems: Yes (ETOH abuse) Seizures: No Thyroid Disease: No Lung CA: Yes (Mesothelioma) - Surgical History Abdominal Surgery: No Appendectomy: No Cardiac Surgery: No Cholecystectomy: No Lung Surgery: No Neurologic Surgery: No Orthopedic Surgery: No - Family Medical History Family Disease History: CA: Mother - Reproductive History Testicular Surgery: No - Immunization History TDAP Vaccination: Yes Immunization Up to Date: Yes - Psycho Social/Smoking Cessation Hx Smoking Status: No Smoking History: Unknown if ever smoked Have you smoked in the past 12 months: No Number of Cigarettes Smoked Daily: 0 If you are a former smoker, when did you quit?: 0 Cigars Per Day: 0 'Breaking Loose' booklet given: 09/22/17 Hx Alcohol Use: Yes Drug/Substance Use Hx: No Substance Use Type: Alcohol Hx Substance Use Treatment: Yes Review of Systems - Review of Systems Able to Perform ROS?: No (intoxicated) *Physical Exam - Vital Signs Last Vital Signs Temp Pulse Resp BP Pulse Ox 97.7 F 88 18 103/56 L 95 03/08/19 22:00 03/08/19 22:00 03/08/19 22:00 03/08/19 22:00 03/08/19 22:00 - Physical Exam General Appearance: Yes: Disheveled, Alcohol on Breath, Intoxicated, Obese. No : Appropriately Dressed, Apparent Distress HEENT: positive: Normal ENT Inspection, Normal Voice Neck: positive: Supple Respiratory/Chest: positive: Lungs Clear Cardiovascular: positive: Regular Rhythm, Regular Rate Vascular Pulses: Dorsalis-Pedis (R): 2+, Doralis-Pedis (L): 2+ Gastrointestinal/Abdominal: positive: Soft Rectal Exam: positive: deferred Lymphatic: negative: Adenopathy Musculoskeletal: positive: Normal Inspection Extremity: positive: Normal Capillary Refill, Normal Inspection Integumentary: positive: Normal Color, Dry Neurologic: positive: Respond to painful stimul, Responsive ED Treatment Course - RADIOLOGY Radiograph Interpretation: Head CT: Clinical indication:Rule out bleed. No further information is provided. Comparison:July 23, 2018. Technique: Axial unenhanced CT images from the skull base through the brain were obtained followed by coronal and sagital reformats. Findings: The visualized bony structures are unremarkable. There is a large ovoid filling defect at the base of the right maxillary sinus which most likely represents a mucous retention cyst versus polyp. There is a smaller one at the base of the left maxillary sinus. Otherwise, the visualized paranasal sinuses and mastoid air cells are clear. There is no evidence of intra-or extra-axial hemorrhage. The ventricles and basilar cisterns are unremarkable. There is some global atrophic changes. There is no evidence of intracranial mass , acute infarct, or midline shift. Impression: No definite acute intracranial abnormality. Medical Decision Making - Medical Decision Making Sunil De Leon is a 64 yo M w a hx of chronic alcohol abuse, mesothelioma, suspected prior PE (01/2019) for which he refused CTA, HTN, HLD, NIDDM BIBA to ED for ETOH intoxication. Patient is not willing to speak or contribute any history. Per EMS patient fell down in the park in [place] and hit his head. Patient denies any trauma or falls. Vital Signs Temp Pulse Resp BP Pulse Ox 97.7 F 88 18 103/56 L 95 03/08/19 22:00 03/08/19 22:00 03/08/19 22:00 03/08/19 22:00 03/08/19 22:00 MDM: Patient presents intoxicated. Per EMS he fell down and hit his head. Plan: Head ct, ED observation until clinical sobriety Head CT: No acute pathology Disposition: Home when clinically sober. *DC/Admit/Observation/Transfer Diagnosis at time of Disposition: Alcohol intoxication Qualifiers: Complication of substance-induced condition: uncomplicated Qualified Code(s): F10.920 - Alcohol use, unspecified with intoxication, uncomplicated - Discharge Dispostion Disposition: HOME Condition at time of disposition: Improved Decision to Admit order: No - Referrals Referrals: Lily Cornejo [Primary Care Provider] - - Patient Instructions Printed Discharge Instructions: DI for Alcohol Abuse - Post Discharge Activity Discharge - Discharge Information Problems reviewed: Yes Clinical Impression/Diagnosis: Alcohol intoxication Qualifiers: Complication of substance-induced condition: uncomplicated Qualified Code(s): F10.920 - Alcohol use, unspecified with intoxication, uncomplicated - Follow up/Referral Referrals: Lily Cornejo [Primary Care Provider] - - Patient Discharge Instructions - Post Discharge Activity
[2019-03-09] MEDS ORDERED: TETRAHYDROZOLINE HCL EYE DROPS OD ONE (07:00)
[2019-03-09 08:15] VITALS: BP 134/78; PULSE 76; TEMP 97.9
[2019-03-09] MEDS ORDERED: chlordiazePOXIDE HCL 25 MG CAPSULE PO ONE (10:13)
[2019-03-09] MEDS ORDERED: chlordiazePOXIDE HCL 25 MG CAPSULE ONE (10:14)
== END 2019-03-09 10:45 | disposition home or self-care (01) ==
LOC: JER 21:48
DX: F10.920 Alcohol use, unspecified with intoxication, uncomplicated (principal); C45.7 Mesothelioma of other sites; I10 Essential (primary) hypertension; Z91.14 Patient's other noncompliance with medication regimen; Z91.013 Allergy to seafood; E78.00 Pure hypercholesterolemia, unspecified
CPT/HCPCS: 70450-TC; 99283-25

== ENCOUNTER 2019-03-09 19:56 | Emergency (ER) | payer OTHER ==
--- NOTE | 2019-03-09 20:05 | PDOC ---
Rapid Medical Evaluation Time Seen by Provider: 03/09/19 20:03 Medical Evaluation: Allergies Allergy/AdvReac Type Severity Reaction Status Date / Time Fish Containing Products Allergy Mild Swelling Verified 03/08/19 22:21 No Known Drug Allergies Allergy Verified 03/08/19 22:21 03/09/19 20:04 HPI: Requesting Detox PE: Unkept and smells of urine ORDERS: Labs Discharge Disposition - Diagnosis Alcohol intoxication - Referrals - Patient Instructions - Post Discharge Activity
[2019-03-09 20:06] VITALS: TEMP 98.2; BMI 33.4
[2019-03-09 21:51] LABS: BASO % 0.2 % (0-2.0); HEMATOCRIT 30.5 % (35.4-49); HEMOGLOBIN 9.7 GM/dL (11.7-16.9); LYMPH % 34.7 % (8-40); MCH 27.4 pg (25.7-33.7); MCHC 31.8 g/dl (32.0-35.9); MEAN PLT VOLUME 7.1 fl (7.5-11.1); MONO % 5.8 % (3.8-10.2); NEUT % 57.3 % (42.8-82.8); PLATELET COUNT 316 K/MM3 (134-434); RBC 3.54 M/mm3 (4.00-5.60); RDW 20.6 % (11.9-15.9); WHITE BLOOD COUNT 6.7 K/mm3 (4.0-10.0)
--- NOTE | 2019-03-09 21:55 | PDOC ---
History of Present Illness - General Chief Complaint: Alcohol intoxication Stated Complaint: INBOX Time Seen by Provider: 03/09/19 20:03 - History of Present Illness Initial Comments: 03/09/19 22:00 Mr. De Leon is a 64 yo male w/ pmh of alcohol abuse, mesothelioma, HTN, HLD, NIDDM who presents to ED with complaints of intoxication. Patient requesting evaluation at this time however reports he does not wish to go to [facility] facility. The patient denies chest pain, shortness of breath, headache and dizziness. Denies fever, chills, nausea, vomit, diarrhea and constipation. Denies dysuria, frequency, urgency and hematuria. Past History - Past Medical History Allergies/Adverse Reactions: Allergies Allergy/AdvReac Type Severity Reaction Status Date / Time Fish Containing Products Allergy Mild Swelling Verified 03/09/19 20:06 No Known Drug Allergies Allergy Verified 03/09/19 20:06 Home Medications: Ambulatory Orders Cyanocobalamin (Vitamin B-12) [B-12] 1,000 mcg PO DAILY 30 Days #30 tablet 02/27 Folic Acid - 1 mg PO DAILY 30 Days #30 tablet 02/27/19 Multivitamins [Multivit ([facility])] 1 tab PO DAILY 30 Days #30 tab Thiamine HCl [Vitamin B1 -] 100 mg PO DAILY 30 Days #30 tablet 02/27/19 Anemia: No Asthma: No Cancer: Yes (mesothelioma lung cancer) Cardiac Disorders: No CVA: No COPD: No CHF: No DVT: No Dementia: No Diabetes: No Dialysis: No GI Disorders: No Disorders: No HTN: Yes (non compliance) Hypercholesterolemia: Yes Kidney Stones: No Liver Disease: Yes (ETOH abuse) Psychiatric Problems: Yes (ETOH abuse) Seizures: No Thyroid Disease: No Lung CA: Yes (Mesothelioma) - Surgical History Abdominal Surgery: No Appendectomy: No Cardiac Surgery: No Cholecystectomy: No Lung Surgery: No Neurologic Surgery: No Orthopedic Surgery: No - Reproductive History Testicular Surgery: No - Immunization History TDAP Vaccination: Yes Immunization Up to Date: Yes - Psycho Social/Smoking Cessation Hx Smoking Status: No Smoking History: Former smoker Have you smoked in the past 12 months: No Number of Cigarettes Smoked Daily: 0 If you are a former smoker, when did you quit?: 0 Cigars Per Day: 0 Information on smoking cessation initiated: Yes 'Breaking Loose' booklet given: 09/22/17 Hx Alcohol Use: Yes Drug/Substance Use Hx: No Substance Use Type: Alcohol Hx Substance Use Treatment: Yes Review of Systems - Review of Systems Comments:: 03/09/19 22:01 GENERAL/CONSTITUTIONAL: No fever or chills. No weakness. HEAD, EYES, EARS, NOSE AND THROAT: No change in vision. No ear pain or discharge. No sore throat. CARDIOVASCULAR: No chest pain or shortness of breath RESPIRATORY: No cough, wheezing, or hemoptysis. GASTROINTESTINAL: No nausea, vomiting, diarrhea or constipation. GENITOURINARY: No dysuria, frequency, or change in urination. MUSCULOSKELETAL: No joint or muscle swelling or pain. No neck or back pain. SKIN: No rash NEUROLOGIC: No headache, vertigo, loss of consciousness, or change in strength/ sensation. ENDOCRINE: No increased thirst. No abnormal weight change HEMATOLOGIC/LYMPHATIC: No anemia, easy bleeding, or history of blood clots. ALLERGIC/IMMUNOLOGIC: No hives or skin allergy. *Physical Exam - Vital Signs Last Vital Signs Temp Pulse Resp BP Pulse Ox 98.2 F 90 18 116/67 91 L 03/09/19 20:05 03/09/19 20:05 03/09/19 20:05 03/09/19 20:05 03/09/19 20:05 - Physical Exam Comments: 03/09/19 22:01 GENERAL: Awake, alert, and fully oriented, in no acute distress HEAD: No signs of trauma, normocephalic, atraumatic EYES: PERRLA, EOMI, sclera anicteric, conjunctiva clear ENT: Auricles normal inspection, hearing grossly normal, nares patent, oropharynx clear without exudates. Moist mucosa NECK: Normal ROM, supple, no lymphadenopathy, JVD, or masses LUNGS: No distress, speaks full sentences, clear to auscultation bilaterally HEART: Regular rate and rhythm, normal S1 and S2, no murmurs, rubs or gallops, peripheral pulses normal and equal bilaterally. ABDOMEN: Soft, nontender, normoactive bowel sounds. No guarding, no rebound. No masses EXTREMITIES: Normal inspection, Normal range of motion, no edema. No clubbing or cyanosis. NEUROLOGICAL: Cranial nerves II through XII grossly intact. Normal speech, normal gait, no focal sensorimotor deficits SKIN: Warm, Dry, normal turgor, no rashes or lesions noted. ED Treatment Course - LABORATORY CBC & Chemistry Diagram: 03/09/19 21:37 03/09/19 21:37 - ADDITIONAL ORDERS Additional order review: 03/09/19 21:37 RBC 3.54 L MCV 86.0 MCHC 31.8 L RDW 20.6 H MPV 7.1 L Neutrophils % 57.3 Lymphocytes % 34.7 D Monocytes % 5.8 Eosinophils % 2.0 Basophils % 0.2 Medical Decision Making - Medical Decision Making 03/09/19 22:34 Mr. De Leon is a 64 yo male w/ pmh as described who presents w/ complaints of intoxication requesting detox. Patient evaluated with basic labs for acute process which revealed hypokalemia as below. Patient given oral potassium for replacement and EKG ordered for additional information.. Laboratory Results - last 24 hr 03/09/19 03/09/19 03/09/19 21:37 21:37 21:37 WBC 6.7 RBC 3.54 L Hgb 9.7 L Hct 30.5 L MCV 86.0 MCH 27.4 MCHC 31.8 L RDW 20.6 H Plt Count 316 D MPV 7.1 L Absolute Neuts (auto) 3.8 Neutrophils % 57.3 Lymphocytes % 34.7 D Monocytes % 5.8 Eosinophils % 2.0 Basophils % 0.2 Nucleated RBC % 0 Hypochromia 1+ Platelet Estimate Normal Anisocytosis 2+ Sodium 146 H Potassium 2.8 L* Chloride 104 Carbon Dioxide 28 Anion Gap 14 BUN 6.9 L Creatinine 0.6 Est GFR (CKD-EPI)AfAm 123.15 Est GFR (CKD-EPI)NonAf 106.25 Random Glucose 85 Calcium 8.0 L Total Bilirubin 0.4 AST 51 H ALT 33 Alkaline Phosphatase 119 H Total Protein 6.3 L Albumin 3.0 L Lipase 49 L Alcohol, Quantitative 329.6 H 03/10/19 01:34 EKG normal sinus rhythm w/ left axis deviation and prolonged QT, unchanged from previous. Patient tolerated potassium without difficulty. Patient ambulating without difficulty and with clear speech. Patient remains intoxicated; will be signed out for clinical sobriety. 03/10/19 07:29 Patient signed out to Dr. Ulrich for further evaluation Discharge - Discharge Information Problems reviewed: Yes Clinical Impression/Diagnosis: Rib pain on right side Alcohol intoxication Qualifiers: Complication of substance-induced condition: uncomplicated Qualified Code(s): F10.920 - Alcohol use, unspecified with intoxication, uncomplicated Condition: Improved Disposition: HOME - Follow up/Referral - Patient Discharge Instructions Patient Printed Discharge Instructions: DI for Alcohol Abuse Additional Instructions: You were evaluated today in the ED for your intoxication. We noted your potassium was low on labs so gave you replacement oral potassium. We believe you are safe for discharge at this time. You denied placement at [facility]. Please follow-up with primary care provider for further evaluation and detox or rehab options. Return to ER if any fever, chills, pain, or other concerning symptoms. Print Language: DJIBOUTIAN - Post Discharge Activity
--- NOTE | 2019-03-09 22:10 | PDOC ---
Attending Attestation - Resident Resident Name: Kelvin Kee - ED Attending Attestation I have performed the following: I have examined & evaluated the patient, The case was reviewed & discussed with the resident, I agree w/resident's findings & plan - HPI HPI: 03/10/19 01:07 see resident hpi - Physicial Exam PE: 03/10/19 01:07 agree with resident exam - Medical Decision Making 03/10/19 01:07 64 yo male requesting detox on arrival now without complaints labs reveal hypokalemia and elevated blood alcohol plan for obs and re eval when clinically sober
[2019-03-09 22:19] LABS: BILIRUBIN,TOTAL 0.4 mg/dL (0.2-1); BLOOD UREA NITROGEN 6.9 mg/dL (7-18); CREATININE 0.6 mg/dL (0.55-1.3); TOT PROT 6.3 g/dl (6.4-8.2)
[2019-03-09 22:20] LABS: ANISOCYTOSIS 2+; PLATELET ESTIMATE NORMAL
[2019-03-09 22:28] LABS: POTASSIUM 2.8 mmol/L (3.5-5.1)
[2019-03-09] MEDS ORDERED: POTASSIUM CHLORIDE ORAL LIQUID 20 MEQ/15 ML PO ONE (23:12)
[2019-03-09] MEDS: POTASSIUM CHLORIDE TABS 20 MEQ TABLET.ER (FP) PO ONE ×2 (23:22→23:23)
[2019-03-10] MEDS ORDERED: ACETAMINOPHEN 325 MG TABLET (FP) PO ONE (07:25)
[2019-03-10] MEDS ORDERED: ACETAMINOPHEN 325 MG TABLET (FP) ONE (08:25)
[2019-03-10] MEDS ORDERED: traMADol HCL 50 MG TABLET PO ONE (08:28)
[2019-03-10] MEDS ORDERED: traMADol HCL 50 MG TABLET ONE (08:29)
--- NOTE | 2019-03-10 08:34 | PDOC ---
*Physical Exam - Vital Signs Last Vital Signs Temp Pulse Resp BP Pulse Ox 98.2 F 90 18 116/67 91 L 03/09/19 20:05 03/09/19 20:05 03/09/19 20:05 03/09/19 20:05 03/09/19 20:05 ED Treatment Course - LABORATORY CBC & Chemistry Diagram: 03/09/19 21:37 03/09/19 21:37 - ADDITIONAL ORDERS Additional order review: Laboratory Results 03/09/19 03/09/19 21:37 21:37 Sodium 146 H Potassium 2.8 L* Chloride 104 Carbon Dioxide 28 Anion Gap 14 BUN 6.9 L Creatinine 0.6 Est GFR (CKD-EPI)AfAm 123.15 Est GFR (CKD-EPI)NonAf 106.25 Random Glucose 85 Calcium 8.0 L Total Bilirubin 0.4 AST 51 H ALT 33 Alkaline Phosphatase 119 H Total Protein 6.3 L Albumin 3.0 L Lipase 49 L Alcohol, Quantitative 329.6 H 03/09/19 21:37 RBC 3.54 L MCV 86.0 MCHC 31.8 L RDW 20.6 H MPV 7.1 L Neutrophils % 57.3 Lymphocytes % 34.7 D Monocytes % 5.8 Eosinophils % 2.0 Basophils % 0.2 - Medications Given in the ED: ED Medications Discontinued Medications Generic Name Dose Route Start Last Admin Trade Name Francisco Javier PRN Reason Stop Dose Admin Acetaminophen 650 mg 03/10/19 07:25 03/10/19 08:21 Tylenol - PO 03/10/19 07:26 650 mg ONCE ONE Administration Potassium Chloride 40 meq 03/09/19 22:30 03/09/19 23:23 K-Dur - PO 03/09/19 22:31 40 meq ONCE ONE Administration Potassium Chloride 40 meq 03/09/19 23:12 03/09/19 23:23 Potassium Chloride Oral Liquid PO 03/09/19 23:13 Not Given ONCE ONE Medical Decision Making - Medical Decision Making 03/10/19 08:29 Pt signed out sober here, atremulous comlaining of mild pain to the R rib/lank region - atraumatic 03/10/19 11:12 xray negative taiwo ld with suppotive care return percautions were discussed Discharge - Discharge Information Problems reviewed: Yes Clinical Impression/Diagnosis: Rib pain on right side Alcohol intoxication Qualifiers: Complication of substance-induced condition: uncomplicated Qualified Code(s): F10.920 - Alcohol use, unspecified with intoxication, uncomplicated Condition: Improved Disposition: HOME - Admission No - Follow up/Referral - Patient Discharge Instructions Patient Printed Discharge Instructions: DI for Alcohol Abuse Additional Instructions: You were evaluated today in the ED for your intoxication. We noted your potassium was low on labs so gave you replacement oral potassium. We believe you are safe for discharge at this time. You denied placement at [facility] detox facility. Please follow-up with primary care provider for further evaluation and detox or rehab options. Return to ER if any fever, chills, pain, or other concerning symptoms. Print Language: RWANDAN - Post Discharge Activity
[2019-03-10 11:08] VITALS: BP 160/99; PULSE 86
--- NOTE | 2019-03-10 14:07 | EKG ---
Test Reason : Blood Pressure : / mmHG Vent. Rate : 083 BPM Atrial Rate : 083 BPM P-R Int : 174 ms QRS Dur : 100 ms QT Int : 424 ms P-R-T Axes : 031 -32 066 degrees QTc Int : 498 ms NORMAL SINUS RHYTHM LEFT AXIS DEVIATION PROLONGED QT ABNORMAL ECG WHEN COMPARED WITH ECG OF 26-FEB-2019 08:58, NO SIGNIFICANT CHANGE WAS FOUND Confirmed by ANGELINA HYLTON MD ([id number]) on 03/10/2019 2:06:54 PM Referred By: Confirmed By:ANGELINA HYLTON MD
== END 2019-03-10 11:13 | disposition home or self-care (01) ==
LOC: JER 19:56
DX: F10.920 Alcohol use, unspecified with intoxication, uncomplicated (principal); I10 Essential (primary) hypertension; E78.00 Pure hypercholesterolemia, unspecified; C45.7 Mesothelioma of other sites; E11.9 Type 2 diabetes mellitus without complications; Z91.14 Patient's other noncompliance with medication regimen; Z91.013 Allergy to seafood
CPT/HCPCS: 36415; 71101-TC-RT-FY; 80053; 80307; 83690; 85025; 93005; 93010; 99283-25

== ENCOUNTER 2019-03-12 18:24 | Emergency (ER) | payer OTHER ==
[2019-03-12 18:53] VITALS: BP 137/84; PULSE 85; TEMP 97.3; BMI 34.7
[2019-03-12] MEDS ORDERED: LIDOCAINE 5% TOPICAL PATCH TP ONE (20:22)
--- NOTE | 2019-03-12 20:23 | PDOC ---
History of Present Illness - General Chief Complaint: Pain Stated Complaint: RT Rib cage pain Time Seen by Provider: 03/12/19 18:51 History Source: Patient Exam Limitations: Intoxication - History of Present Illness Initial Comments: Sunil De Leon is a 64 yo M w a hx of chronic alcohol abuse, states he has mesothelioma, suspected prior PE (01/2019) for which he refused CTA, HTN, HLD, NIDDM BIBA to ED for ETOH intoxication. The patient states he is here today because his right lower rib hurts. He states he was here yesterday for the same reason, received an x-ray which was negative, but now returns because the pain is still there. Patient denies having any fevers, chills, shortness of breath, chest pain anywhere on his chest other than the point tenderness at his lower right rib. Past History - Past Medical History Allergies/Adverse Reactions: Allergies Allergy/AdvReac Type Severity Reaction Status Date / Time Fish Containing Products Allergy Mild Swelling Verified 03/09/19 20:06 No Known Drug Allergies Allergy Verified 03/09/19 20:06 Home Medications: Ambulatory Orders Cyanocobalamin (Vitamin B-12) [B-12] 1,000 mcg PO DAILY 30 Days #30 tablet 02/27 Folic Acid - 1 mg PO DAILY 30 Days #30 tablet 02/27/19 Multivitamins [Multivit ([facility] Formul[facility])] 1 tab PO DAILY 30 Days #30 tab Thiamine HCl [Vitamin B1 -] 100 mg PO DAILY 30 Days #30 tablet 02/27/19 Anemia: No Asthma: No Cancer: Yes (mesothelioma lung cancer) Cardiac Disorders: No CVA: No COPD: No CHF: No DVT: No Dementia: No Diabetes: No Dialysis: No GI Disorders: No Disorders: No HTN: Yes (non compliance) Hypercholesterolemia: Yes Kidney Stones: No Liver Disease: Yes (ETOH abuse) Psychiatric Problems: Yes (ETOH abuse) Seizures: No Thyroid Disease: No Lung CA: Yes (Mesothelioma) - Surgical History Abdominal Surgery: No Appendectomy: No Cardiac Surgery: No Cholecystectomy: No Lung Surgery: No Neurologic Surgery: No Orthopedic Surgery: No - Reproductive History Testicular Surgery: No - Immunization History TDAP Vaccination: Yes Immunization Up to Date: Yes - Psycho Social/Smoking Cessation Hx Smoking Status: No Smoking History: Never smoked Have you smoked in the past 12 months: No Number of Cigarettes Smoked Daily: 0 If you are a former smoker, when did you quit?: 0 Cigars Per Day: 0 'Breaking Loose' booklet given: 09/22/17 Hx Alcohol Use: Yes Drug/Substance Use Hx: No Substance Use Type: Alcohol Hx Substance Use Treatment: Yes Review of Systems - Review of Systems Able to Perform ROS?: No (intoxicated) *Physical Exam - Vital Signs Last Vital Signs Temp Pulse Resp BP Pulse Ox 97.3 F L 85 16 137/84 92 L 03/12/19 18:49 03/12/19 18:49 03/12/19 18:49 03/12/19 18:49 03/12/19 18:49 - Physical Exam General Appearance: Yes: Alcohol on Breath, Intoxicated, Obese. No: Appropriately Dressed HEENT: positive: EOMI, DOUGLAS, Normal ENT Inspection, Normal Voice Neck: positive: Supple Respiratory/Chest: positive: Chest Tender (right 8th rib tenderness), Lungs Clear, Normal Breath Sounds. negative: Respiratory Distress, Accessory Muscle Use, Labored Respiration, Rapid RR, Decreased Breath Sounds, Paradoxal Breathing , Crackles, Rales, Rhonchi, Stridor, Wheezing, Hyperresonant, Dullness, Plerual Rub Cardiovascular: positive: Regular Rhythm, Regular Rate, S1, S2. negative: Edema Vascular Pulses: Dorsalis-Pedis (R): 2+, Doralis-Pedis (L): 2+ Gastrointestinal/Abdominal: positive: Normal Bowel Sounds, Soft, Protuberent, Hepatomegaly. negative: Guarding, Rebound Rectal Exam: positive: deferred Musculoskeletal: positive: Normal Inspection Extremity: positive: Normal Capillary Refill, Normal Inspection, Pelvis Stable Integumentary: positive: Dry, Warm, Jaundice Neurologic: positive: Alert, Normal Mood/Affect, Normal Response. negative: Finger to Nose Medical Decision Making - Medical Decision Making Sunil De Leon is a 64 yo M w a hx of chronic alcohol abuse, states he has mesothelioma, suspected prior PE (01/2019) for which he refused CTA, HTN, HLD, NIDDM BIBA to ED for ETOH intoxication. The patient states he is here today because his right lower rib hurts. He states he was here yesterday for the same reason, received an x-ray which was negative, but now returns because the pain is still there. Patient denies having any fevers, chills, shortness of breath, chest pain anywhere on his chest other than the point tenderness at his lower right rib. Vital Signs Temp Pulse Resp BP Pulse Ox 97.3 F L 85 16 137/84 92 L 03/12/19 18:49 03/12/19 18:49 03/12/19 18:49 03/12/19 18:49 03/12/19 18:49 MDM: Patient presents intoxicated with focal rib pain Plan: Lidocaine patch, re-assess. Disposition: Home when clinically sober. Discharge - Discharge Information Problems reviewed: Yes Clinical Impression/Diagnosis: Alcohol intoxication Qualifiers: Complication of substance-induced condition: uncomplicated Qualified Code(s): F10.920 - Alcohol use, unspecified with intoxication, uncomplicated Condition: Stable Disposition: HOME - Admission No - Follow up/Referral - Patient Discharge Instructions Patient Printed Discharge Instructions: Alcohol Use Disorder, DI for Alcohol Abuse Print Language: AUSTRIAN - Post Discharge Activity
--- NOTE | 2019-03-12 20:28 | PDOC ---
Attending Attestation - Resident Resident Name: Stevenson Jiang - ED Attending Attestation I have performed the following: I have examined & evaluated the patient, The case was reviewed & discussed with the resident, I agree w/resident's findings & plan - HPI HPI: 03/12/19 21:34 Pt is a known alcoholic who returns with rib pains today; he was here for the same yesterday and yesterday's CXR was normal Pt s sleeping comfortably here. - Physicial Exam PE: 03/12/19 22:36 Abd soft Nt ND Afebrile No flank pain; no rashes on body no bruising. Pt has right lower rib pain. Pt has pitting edema of his legs bilaterally. Heart and lungs clear. Pt is A+Ox3 Slurring speech. Comfortable. - Medical Decision Making 03/13/19 05:54 Pt is sleeping all night. He will be discharged in the AM
[2019-03-12] MEDS ORDERED: LIDOCAINE PATCH REMOVAL MC SCH (22:00)
== END 2019-03-13 06:25 | disposition home or self-care (01) ==
LOC: JER 18:24
DX: F10.220 Alcohol dependence with intoxication, uncomplicated (principal); R07.81 Pleurodynia; I10 Essential (primary) hypertension; C45.9 Mesothelioma, unspecified; Z59.0 Homelessness; Z91.013 Allergy to seafood
CPT/HCPCS: 99282-25

== ENCOUNTER 2019-03-14 19:17 | Emergency (ER) | payer OTHER ==
--- NOTE | 2019-03-14 19:47 | PDOC ---
Rapid Medical Evaluation Time Seen by Provider: 03/14/19 19:46 Medical Evaluation: Allergies Allergy/AdvReac Type Severity Reaction Status Date / Time Fish Containing Products Allergy Mild Swelling Verified 03/09/19 20:06 No Known Drug Allergies Allergy Verified 03/09/19 20:06 03/14/19 19:46 CC: MARKIE ETOH intoxication PE: No focal findings Orders: nothing Patient is to proceed to ER for further evaluation. Discharge Disposition - Diagnosis Alcohol dependence with intoxication - Referrals - Patient Instructions - Post Discharge Activity
[2019-03-14 21:04] VITALS: TEMP 98.5; BMI 30.4
--- NOTE | 2019-03-14 22:17 | PDOC ---
History of Present Illness - General Chief Complaint: Alcohol intoxication Stated Complaint: ETOH Time Seen by Provider: 03/14/19 19:46 Past History - Past Medical History Allergies/Adverse Reactions: Allergies Allergy/AdvReac Type Severity Reaction Status Date / Time Fish Containing Products Allergy Mild Swelling Verified 03/09/19 20:06 No Known Drug Allergies Allergy Verified 03/09/19 20:06 Home Medications: Ambulatory Orders Cyanocobalamin (Vitamin B-12) [B-12] 1,000 mcg PO DAILY 30 Days #30 tablet 02/27 Folic Acid - 1 mg PO DAILY 30 Days #30 tablet 02/27/19 Multivitamins [Multivit ([facility] Form[facility])] 1 tab PO DAILY 30 Days #30 tab Thiamine HCl [Vitamin B1 -] 100 mg PO DAILY 30 Days #30 tablet 02/27/19 Anemia: No Asthma: No Cancer: Yes (mesothelioma lung cancer) Cardiac Disorders: No CVA: No COPD: No CHF: No DVT: No Dementia: No Diabetes: No Dialysis: No GI Disorders: No Disorders: No HTN: Yes (non compliance) Hypercholesterolemia: Yes Kidney Stones: No Liver Disease: Yes (ETOH abuse) Psychiatric Problems: Yes (ETOH abuse) Seizures: No Thyroid Disease: No Lung CA: Yes (Mesothelioma) - Surgical History Abdominal Surgery: No Appendectomy: No Cardiac Surgery: No Cholecystectomy: No Lung Surgery: No Neurologic Surgery: No Orthopedic Surgery: No - Reproductive History Testicular Surgery: No - Immunization History TDAP Vaccination: Yes Immunization Up to Date: Yes - Psycho Social/Smoking Cessation Hx Smoking Status: No Smoking History: Unknown if ever smoked Have you smoked in the past 12 months: No Number of Cigarettes Smoked Daily: 0 If you are a former smoker, when did you quit?: 0 Cigars Per Day: 0 'Breaking Loose' booklet given: 09/22/17 Hx Alcohol Use: Yes Drug/Substance Use Hx: No Substance Use Type: Alcohol Hx Substance Use Treatment: Yes *Physical Exam - Vital Signs Last Vital Signs Temp Pulse Resp BP Pulse Ox 98.5 F 78 19 128/79 97 03/14/19 19:35 03/14/19 19:35 03/14/19 19:35 03/14/19 19:35 03/14/19 19:35 Medical Decision Making - Medical Decision Making HPI: 64yo M with PMH of HTN, mesothelioma, chronic ETOH abuse tenderness at his lower right rib. Patient is well known to this ED and was last seen here two days ago. He states he was here two days ago for the same reason, received an x- ray which was negative, but now returns because the pain is still there. Denies fevers, chills, chest pain, or shortness of breath. He reports chronic back pain that is at its baseline. ROS: Constitutional: no fever, no chills HEENT: no throat pain, no dysphagia Cardiovascular: no chest pain, no palpitations Respiratory: no cough, no shortness of breath Gastrointestinal: no abdominal pain, no nausea Genitourinary: no dysuria, no hematuria Musculoskeletal: +back pain, +lower right rib pain Skin: no rash, no itching Neurologic: no headache, no weakness PE: General: Awake, alert, and fully oriented, disheveled, slurred speech, somnolent but arousable Head: No signs of trauma Eyes: EOMI, sclera anicteric ENT: Moist mucus membranes Neck: Normal ROM, supple Lungs: Lungs clear, Normal breath sounds Cardio: Regular rhythm, S1 and S2 present, tenderness to palpation in lower right rib at lateral costal margin Abdomen: Soft, nontender. No guarding, no rebound, no masses Extremities: Normal range of motion, Distal pulses present SKIN: Warm, Dry, normal turgor Neurologic: Cranial nerves II through XII grossly intact. Slurred speech ED Course/MDM: DDX including but not limited to intoxication, alcohol withdrawal rib fracture, malingering Previous xray did not show acute pathology Rib Xray on 03/10/19: old right skeletal trauma involving right ribs and right humerus. Degenerative spine changes. Tortuous aorta and prominent mediastinum. An acute process is not seen. If symptoms persist, further imaging may be of help Awaiting clinical sobriety 03/14/19 22:17 Patient with improved speech and steady gait. Stable for discharge 03/15/19 05:58 Discharge - Discharge Information Problems reviewed: Yes Clinical Impression/Diagnosis: Alcohol dependence with intoxication Qualifiers: Complication of substance-induced condition: uncomplicated Qualified Code(s): F10.220 - Alcohol dependence with intoxication, uncomplicated Condition: Improved Disposition: HOME - Follow up/Referral - Patient Discharge Instructions Patient Printed Discharge Instructions: DI for Alcohol Abuse Additional Instructions: You came into the emergency department with intoxication. Follow-up with your primary care provider within 72 hours to discuss this ED visit and to further evaluate your symptoms. Call and make an appointment tomorrow morning. Your workup is not complete until you do so. Immediate medical attention is required if you have: a seizure or develop tremors or hallucinations and do not have access to alcohol, vomiting, chest pain, shortness of breath, abdominal pain, thoughts of self-harm, or an other new or concerning symptoms. If you think you are having an emergency, call for emergency medical services or present to the emergency department right away. - Post Discharge Activity
--- NOTE | 2019-03-14 22:26 | PDOC ---
Attending Attestation - Resident Resident Name: NildaFabiana - ED Attending Attestation I have performed the following: I have examined & evaluated the patient, The case was reviewed & discussed with the resident, I agree w/resident's findings & plan - HPI HPI: 03/14/19 23:26 see resident hpi - Physicial Exam PE: 03/14/19 23:26 see resident exam - Medical Decision Making 03/14/19 23:27 64 yo male BIBA for ETOH intox plan for obs until clinically sober, d/c
[2019-03-15 05:58] VITALS: BP 131/79; PULSE 105
== END 2019-03-15 06:57 | disposition home or self-care (01) ==
LOC: JER 19:17
DX: F10.220 Alcohol dependence with intoxication, uncomplicated (principal); I10 Essential (primary) hypertension; Z91.14 Patient's other noncompliance with medication regimen; C45.9 Mesothelioma, unspecified; Z59.0 Homelessness; Z91.013 Allergy to seafood
CPT/HCPCS: 99281-25

== ENCOUNTER 2019-03-17 16:16 | Emergency (ER) | payer OTHER ==
[2019-03-17 16:55] VITALS: BP 118/76; PULSE 99; TEMP 98.7; BMI 33.0
--- NOTE | 2019-03-17 16:58 | PDOC ---
History of Present Illness - General Chief Complaint: Alcohol intoxication Stated Complaint: INTOX Time Seen by Provider: 03/17/19 16:57 - History of Present Illness Initial Comments: 03/17/19 17:31 64yo M hx alcohol abuse, HTN, and mesothelioma not taking any medications presents intoxicated by alcohol c/o chronic R-sided rib and back pain. Pt is difficult to talk to and refuses to answer multiple questions, yells, and swears. States R-sided rib and back pain has been there for years and is unchanged. Pt states it is due to his mesothelioma and his "black right lung." Pt does not want to talk about it anymore. Denies any new sx, trauma, head injury, or falls. States he is an alcoholic and drank his usual 1 pint of vodka today. Denies other drug use. Pt states he does not want to go to [facility] detox. Pt states he wants to go home. Denies fever, fatigue, headache, dizziness , numbness/tingling, weakness, vision changes, shortness of breath, cough, chest pain, abdominal pain, blood in stool, diarrhea, constipation, nausea, vomiting, dysuria, hematuria. Past History - Past Medical History Allergies/Adverse Reactions: Allergies Allergy/AdvReac Type Severity Reaction Status Date / Time Fish Containing Products Allergy Mild Swelling Verified 03/17/19 16:47 No Known Drug Allergies Allergy Verified 03/17/19 16:47 Home Medications: Ambulatory Orders Unobtainable 03/17/19 Anemia: No Asthma: No Cancer: Yes (mesothelioma lung cancer) Cardiac Disorders: No CVA: No COPD: No CHF: No DVT: No Dementia: No Diabetes: No Dialysis: No GI Disorders: No Disorders: No HTN: Yes (non compliance) Hypercholesterolemia: Yes Kidney Stones: No Liver Disease: Yes (ETOH abuse) Psychiatric Problems: Yes (ETOH abuse) Seizures: No Thyroid Disease: No Lung CA: Yes (Mesothelioma) - Surgical History Abdominal Surgery: No Appendectomy: No Cardiac Surgery: No Cholecystectomy: No Lung Surgery: No Neurologic Surgery: No Orthopedic Surgery: No - Reproductive History Testicular Surgery: No - Immunization History TDAP Vaccination: Yes Immunization Up to Date: Yes - Psycho Social/Smoking Cessation Hx Smoking Status: No Smoking History: Never smoked Have you smoked in the past 12 months: No Number of Cigarettes Smoked Daily: 0 If you are a former smoker, when did you quit?: 0 Cigars Per Day: 0 Information on smoking cessation initiated: No 'Breaking Loose' booklet given: 09/22/17 Hx Alcohol Use: Yes Drug/Substance Use Hx: No Substance Use Type: Alcohol Hx Substance Use Treatment: Yes Review of Systems - Review of Systems Comments:: 03/17/19 17:31 Constitutional: Negative for fever, fatigue. HENT: Negative for sore throat. Eyes: Negative for visual disturbance. Respiratory: Negative for shortness of breath, cough. Cardiovascular: Negative for chest pain, palpitations, and leg swelling. Gastrointestinal: Negative for abdominal pain, blood in stool, constipation, diarrhea, nausea, and vomiting. Genitourinary: Negative for dysuria and hematuria. Musculoskeletal: Positive for R-sided rib and back pain (chronic). Negative for neck pain. Neurological: Negative for dizziness, syncope, weakness, numbness and headaches. Psychiatric/Behavioral: Positive for chronic alcohol abuse. *Physical Exam - Vital Signs Last Vital Signs Temp Pulse Resp BP Pulse Ox 98.7 F 99 H 18 118/76 93 L 03/17/19 16:48 03/17/19 16:48 03/17/19 16:48 03/17/19 16:48 03/17/19 16:48 - Physical Exam Comments: 03/17/19 17:31 Gen: Alert, NAD, unkempt, malodorous HEENT: NCAT. Refuses further assessment CV: Regular rate and rhythm. No murmurs, rubs, or gallops. PULM: No resp distress. CTAB, no wheezes, rales, or rhonchi. ABD: protuberant, refuses further assessment BACK: Refuses assessment MSK: Refuses assessment NEURO: AAOx3. Slightly slurred speech, speaking in full sentences. Refuses assessment EXTREMITIES: Refuses assessment PSYCH: Appears intoxicated, yelling, swearing SKIN: No obvious signs of trauma. Refuses to be undressed Medical Decision Making - Medical Decision Making 03/17/19 17:31 64yo M hx alcohol abuse, HTN, and mesothelioma not taking any medications presents intoxicated by alcohol with chronic R-sided rib and back pain. Denies any new sx, trauma, head injury, or falls. Hemodynamically stable, afebrile, AAOx3, slightly slurred speech yelling, speaking full sentences, gait not observed, no obvious signs of trauma, unkempt and malodorous. Pt wants to go home. Pt refuses complete physical exam, getting undressed, shower, and any labs or tests. Last here 03/14/19 with same pain, intoxicated, no labs or imaging done. Prior visit 03/10/19 with same pain, basic labs and CXR done, of note K 2.8 and rib Xray on 03/10/19: old right skeletal trauma involving right ribs and right humerus. Degenerative spine changes. Tortuous aorta and prominent mediastinum. An acute process is not seen. If symptoms persist, further imaging may be of help -Monitor for clinical sobriety 03/17/19 19:08 Pt agreed to being washed. Washing now. 03/17/19 20:43 Pt sleeping comfortably. 03/17/19 22:23 Pt sleeping comfortably. 03/18/19 00:41 Pt awake, ambulating with steady gait, alert, no complaints, wants to go home. Will dc home with PCP f/u. Return precautions given. Pt understands all dc instructions and all questions were answered. Discharge - Discharge Information Problems reviewed: Yes Clinical Impression/Diagnosis: Alcohol intoxication, Mesothelioma (pleural) Condition: Improved Disposition: HOME - Admission No - Follow up/Referral Referrals: [facility] [place] [Provider Group] - Patient Discharge Instructions Patient Printed Discharge Instructions: DI for Alcohol Abuse Additional Instructions: You have been seen in the Emergency Department for your alcohol intoxication. You rested and appear better. Your exam shows no signs concerning for an emergent condition. Follow-up with your primary care doctor within 1 week. As you know, excessive alcohol use is dangerous and can cause many dangerous health problems including but not limited to and permanent disability. When you are ready to reduce your alcohol use, let us know and we can help you. Good luck on your recovery! Return to the ED immediately if you experience chest pain, difficulty breathing , dizziness, or any other new or worsening symptom. - Post Discharge Activity
--- NOTE | 2019-03-17 18:22 | PDOC ---
Documentation entered by mSith Douglas SCRIBE, acting as scribe for Skye Rashid DO. Skye Rashid DO: This documentation has been prepared by the iMsael pereira Daniel, SCRIBE, under my direction and personally reviewed by me in its entirety. I confirm that the documentation accurately reflects all work, treatment, procedures, and medical decision making performed by me. Attending Attestation - Resident Resident Name: AmeliaFabiana - ED Attending Attestation I have performed the following: I have examined & evaluated the patient, The case was reviewed & discussed with the resident, I agree w/resident's findings & plan, Exceptions are as noted - HPI HPI: 03/17/19 17:40 The patient is a 64 year old male with a past medical history of alcohol abuse and mesothelioma here today for evaluation of alcohol intoxication. Patient reports chronic right sided rib and back pain but otherwise denies any new injuries or pains. Allergies: NKDA - Physicial Exam PE: 03/17/19 17:45 Constitutional: +intoxicated. +foul smelling. +disheveled. Awake, alert, oriented. Head: Normocephalic. Atraumatic Eyes: PERRL. EOMI. Conjunctivae are not pale. Neck: Supple. Full ROM. No lymphadenopathy. Cardiovascular: Regular rate. Regular rhythm. S1, S2 regular. Distal pulses are 2+ and symmetric. Pulmonary/Chest: No evidence of respiratory distress. Clear to auscultation bilaterally No wheezing, rales or rhonchi. Abdominal: +obese. Soft and non-distended. There is no tenderness. No rebound , guarding or rigidity. No organomegaly. No palpable masses. Good bowel sounds. Back: No CVA tenderness. Musculoskeletal: + 4+ pitting lower extremity edema bilaterally. No cyanosis. No clubbing. Full range of motion in all extremities. Nocalf tenderness. Radial/pedal pulses are intact and 2+ bilaterally Psychiatric: Good eye contact. Normal interaction, affect and behavior. Patient refuses to get undressed and refuses to be further examined. - Medical Decision Making 03/17/19 18:15 I, Dr. Skye Rashid DO, attest that this document has been prepared under my direction and personally reviewed by me in its entirety. I further attest, that it accurately reflects all work, treatment, procedures and medical decision -making performed by me. a/p: 64yo male with hx of etoh abuse -pt intoxicated and disheveled -denies falls -pt biba after being found outside -pt refusing full physical exam -LE edema -will monitor and reassess -pt speaking in full clear sentences and moving all extremities -pt sits up -pt agreeable to getting washed up and new clothing. 03/17/19 20:41 pt has been washed sleeping comfortably nad 03/18/19 00:29 pt ambulatory with a steady gait pt with clear speach stable for dc to home
== END 2019-03-18 02:44 | disposition home or self-care (01) ==
LOC: JER 16:16
DX: F10.220 Alcohol dependence with intoxication, uncomplicated (principal); I10 Essential (primary) hypertension; C45.9 Mesothelioma, unspecified; Z91.14 Patient's other noncompliance with medication regimen; Z59.0 Homelessness; Z91.013 Allergy to seafood
CPT/HCPCS: 99282-25

== ENCOUNTER 2019-03-18 07:04 | Inpatient (IN) | payer OTHER ==
--- NOTE | 2019-03-18 07:44 | PDOC ---
History of Present Illness - General Chief Complaint: Nausea/Vomiting Stated Complaint: VOMITING Time Seen by Provider: 03/18/19 07:43 History Source: Patient Exam Limitations: No Limitations - History of Present Illness Initial Comments: 03/18/19 08:41 Sunil De Leon is a 64yo M hx alcohol abuse, fatty liver, HTN, mesothelioma, frequent ED visitor not taking any medications presenting for RUQ pain and hematemesis. Started vomiting gross bight red blood at 6am this morning covering bottom of garbage can. Associated epigastric, midsternal, and R sided AB pain. Also complaining of RUQ pain for last few days after he fell down. Drinks large amounts of alcohol everyday. Denies LOC, fall, or head injury last night/this morning. Denies fever, cough, SOB, urinary/bowel movement changes. Past History - Past Medical History Allergies/Adverse Reactions: Allergies Allergy/AdvReac Type Severity Reaction Status Date / Time Fish Containing Products Allergy Mild Swelling Verified 03/18/19 08:09 No Known Drug Allergies Allergy Verified 03/18/19 08:09 Home Medications: Ambulatory Orders Unobtainable 03/17/19 Anemia: No Asthma: No Cancer: Yes (mesothelioma lung cancer) Cardiac Disorders: No CVA: No COPD: No CHF: No DVT: No Dementia: No Diabetes: No Dialysis: No GI Disorders: No Disorders: No HTN: Yes (non compliance) Hypercholesterolemia: Yes Kidney Stones: No Liver Disease: Yes (ETOH abuse) Psychiatric Problems: Yes (ETOH abuse) Seizures: No Thyroid Disease: No Lung CA: Yes (Mesothelioma) - Surgical History Abdominal Surgery: No Appendectomy: No Cardiac Surgery: No Cholecystectomy: No Lung Surgery: No Neurologic Surgery: No Orthopedic Surgery: No - Reproductive History Testicular Surgery: No - Immunization History TDAP Vaccination: Yes Immunization Up to Date: Yes - Psycho Social/Smoking Cessation Hx Smoking Status: No Smoking History: Former smoker Have you smoked in the past 12 months: No Number of Cigarettes Smoked Daily: 0 If you are a former smoker, when did you quit?: 0 Cigars Per Day: 0 Information on smoking cessation initiated: No 'Breaking Loose' booklet given: 09/22/17 Hx Alcohol Use: Yes Drug/Substance Use Hx: No Substance Use Type: Alcohol Hx Substance Use Treatment: Yes Review of Systems - Review of Systems Constitutional: No: Chills, Fever HEENTM: No: Eye Pain, Recent change in vision, Nose Pain, Throat Pain, Mouth Pain Respiratory: No: Cough, Shortness of Breath Cardiac (ROS): Yes: Chest Pain. No: Palpitations, Syncope ABD/GI: Yes: Nausea, Vomiting. No: Abdominal Distended, Constipated, Diarrhea : No: Burning, Flank Pain, Hematuria Musculoskeletal: No: Back Pain, Joint Swelling, Muscle Pain Integumentary: No: Bruising, Dryness, Erythema Neurological: No: Headache, Seizure, Tingling Psychiatric: Yes: Depression. No: Anxiety Endocrine: No: Excessive Sweating, Intolerance to Cold, Intolerance to Heat Hematologic/Lymphatic: No: Anemia, Blood Clots *Physical Exam - Vital Signs Last Vital Signs Temp Pulse Resp BP Pulse Ox 113 H 22 H 151/100 94 L 03/18/19 07:16 03/18/19 07:16 03/18/19 07:16 03/18/19 07:16 - Physical Exam General Appearance: Yes: Nourished, Appropriately Dressed, Mild Distress, Obese. No: Intoxicated HEENT: positive: EOMI, DOUGLAS, Normal Voice, Hearing Grossly Normal. negative: Scleral Icterus (R), Scleral Icterus (L), Nasal Congestion, Rhinorrhea Respiratory/Chest: positive: Lungs Clear, Normal Breath Sounds, Rapid RR, Other. negative: Chest Tender (no crepitus w palpation), Respiratory Distress, Crackles, Rales, Rhonchi, Stridor, Wheezing Cardiovascular: positive: Regular Rhythm, S1, S2, Tachycardia. negative: Edema , Murmur Gastrointestinal/Abdominal: positive: Normal Bowel Sounds, Tender (moderate tender epigastric, RUQ), Soft, Distended. negative: Organomegaly, Guarding, Rebound Integumentary: positive: Normal Color Neurologic: positive: advertising supervisor II-XII NML intact, Fully Oriented, Alert, Normal Mood/ Affect, Normal Response. negative: Numbness, Confused, Disoriented ED Treatment Course - LABORATORY CBC & Chemistry Diagram: 03/18/19 08:50 03/18/19 08:50 Medical Decision Making - Medical Decision Making 03/18/19 08:13 CBC CMP trop coags lipase T&S CXR EKG CT AB showed aneurysmal dilation of ascending aorta 4.4cm, enlarged pulm artery 4.2cm, fatty liver, distended gallbladder without stones and questionable wall thickening, slightly prominent prostate gland, no gross para esophageal varices EKG shows NSR, HR 91, QTc 501, L axis deviation RUQ US shows new over distended gallbladder w small sludge/debris and mild gallbladder wall thickening, unchanged 4mm echogenic foci in gallbladder neck compared to 08/2018. Hepatomegaly w fatty infiltration CXR showed fullness superior mediastinum unchanged, no acute pathology 1L NS, zofran, protonix, librium Hgb 9.9 (stable), low lipase, neg trop --- Sunil De Leon is a 64yo M hx alcohol abuse, fatty liver, HTN, mesothelioma, frequent ED visitor not taking any medications presenting for RUQ pain and hematemesis s/p alcohol intoxication. Hematemesis likely d/t gastritis. No evidence of esophageal rupture or varices on CT. Hgb stable. Not ACS w neg trop/ NSR EKG, not pancreatitis w low lipase. CT showed ascending aorta dilation 4.4cm , enlarged pulm artery 4.2cm, fatty liver, distended gallbladder. Given 1L NS, 1L LR, zosyn for concern for cholecystitis, zofran for nausea, protonix, librium for withdrawal. Pt vomited once w blood in holding. Pt endorsed RUQ pain for last few days, normal WBC/total bilirubin. US shows new over distended gallbladder w small sludge/debris and mild gallbladder wall thickening, unchanged 4mm echogenic foci in gallbladder neck compared to 08/2018 concerning for cholecystitis. Consulted Dr Almendarez surgery for cholecystitis. Advised low suspicion for cholecystitis or need for surgery given normal WBC/bili, unchanged foci in gallbladder neck likely polyp not obstructing stone, pain localized to R rib costal margin on exam. Consulted Dr Christensen GI for hematemesis. Dr Christensen was not concerned about hematemesis given stable Hgb. Would recheck Hgb. If stable, no intervention. If Hgb drops, will consider further workup Admit to med/surg for hematemesis, alcohol intoxication, gallbladder anomaly ( distended gallbladder, wall thickening). Pt agrees to stay for further treatment Pt amenable to go to alcohol detox other than [facility] after medically cleared Signed out to night team Discharge - Discharge Information Problems reviewed: Yes Clinical Impression/Diagnosis: AAA (abdominal aortic aneurysm) without rupture, Gallbladder anomaly Alcohol intoxication Qualifiers: Complication of substance-induced condition: uncomplicated Qualified Code(s): F10.920 - Alcohol use, unspecified with intoxication, uncomplicated Hematemesis Qualifiers: Nausea presence: with nausea Qualified Code(s): K92.0 - Hematemesis Condition: Improved Disposition: HOME - Admission No - Follow up/Referral - Patient Discharge Instructions Additional Instructions: Here are some detox and rehab resources: [facility] [address], [place] [address] Directions Located on the corner of [address] [employer] [address]ops [address] Stops Subway Train Lines A, C, B, D, [address] [facility] N, R, Q [address] Bus Lines M57, M31, M11 [facility] [address] [address] Hours of Operation 9 a.m. - 8 p.m. [facility] is a Sub[facility] Abuse Re[facility] Services in [place], [place] Address: [address] [place] [address], [address] Intake Line: [phone] Website: [email or web address] Primary Focus: Substance Abuse Rehab Services Treatment Type: Hospital inpatient, Hospital inpatient detoxification, General Hospital(including [place] hospital) Treatment Approaches: No information available, please contact the facility directly. [facility] located in [place], [place]. Address: [address] [place] [address] , [address] - Post Discharge Activity
[2019-03-18] MEDS ORDERED: ONDANSETRON *ODT* 4 MG TABLET SL ONE (08:12)
[2019-03-18] MEDS ORDERED: PANTOPRAZOLE SODIUM 40 MG VIAL IVPUSH ONE (08:20)
[2019-03-18] MEDS ORDERED: SODIUM CHLORIDE 0.9% 500 ML INFUS.BAG IV ONE (08:20)
[2019-03-18] MEDS ORDERED: PANTOPRAZOLE SODIUM 40 MG/100 ML BAG IVPB ONE (08:44)
[2019-03-18] MEDS ORDERED: ONDANSETRON *ODT* 4 MG TABLET ONE (08:44)
[2019-03-18 09:08] LABS: BASO % 1.1 % (0-2.0); HEMATOCRIT 30.5 % (35.4-49); HEMOGLOBIN 9.9 GM/dL (11.7-16.9); LYMPH % 22.8 % (8-40); MCH 27.9 pg (25.7-33.7); MCHC 32.6 g/dl (32.0-35.9); MEAN CELL VOLUME 85.7 fl (80-96); MEAN PLT VOLUME 7.6 fl (7.5-11.1); MONO % 7.2 % (3.8-10.2); NEUT % 67.9 % (42.8-82.8); PLATELET COUNT 210 K/MM3 (134-434); RBC 3.56 M/mm3 (4.00-5.60); RDW 19.9 % (11.9-15.9)
[2019-03-18 09:22] LABS: INR 1.04 (0.83-1.09); PROTHROMBIN TIME (PATIENT) 12.3 SEC (9.7-13.0)
[2019-03-18 09:25] LABS: ACTIVATED PTT 29.9 SECONDS (25.2-36.5)
[2019-03-18 09:49] LABS: LIPASE 63 U/L (73-393)
[2019-03-18 10:00] LABS: BILIRUBIN,TOTAL 0.9 mg/dL (0.2-1); BLOOD UREA NITROGEN 7.5 mg/dL (7-18); CALCIUM 8.3 mg/dL (8.5-10.1); CREATININE 0.6 mg/dL (0.55-1.3); POTASSIUM 3.4 mmol/L (3.5-5.1); TOT PROT 6.3 g/dl (6.4-8.2)
--- NOTE | 2019-03-18 12:10 | EKG ---
Test Reason : Blood Pressure : / mmHG Vent. Rate : 091 BPM Atrial Rate : 091 BPM P-R Int : 150 ms QRS Dur : 092 ms QT Int : 408 ms P-R-T Axes : 076 -22 063 degrees QTc Int : 501 ms POOR DATA QUALITY, INTERPRETATION MAY BE ADVERSELY AFFECTED NORMAL SINUS RHYTHM LEFT AXIS DEVIATION WHEN COMPARED WITH ECG OF 10-MAR-2019 00:03, NO SIGNIFICANT CHANGE WAS FOUND Confirmed by RAY VENEGAS MD ([id number]) on 03/18/2019 12:10:07 PM Referred By: Confirmed By:RAY VENEGAS MD
[2019-03-18] MEDS ORDERED: chlordiazePOXIDE HCL 25 MG CAPSULE PO ONE (13:27)
--- NOTE | 2019-03-18 13:34 | PDOC ---
Attending Attestation - Resident Resident Name: Peter,Bob - ED Attending Attestation I have performed the following: I have examined & evaluated the patient, The case was reviewed & discussed with the resident, I agree w/resident's findings & plan, Exceptions are as noted - HPI HPI: 03/18/19 13:29 64 yo male here with etoh abuse, h/o prior lung ca, fatty liver, near daily visits to ED for intoxication c/o vomitin. pt did have episodes of vomiting in the ED hematemasis. was vomiting, then had blood streaks. no sob no cp no other complaints. is intoxicated. was seen last in ED yesterday. no h/o cirrhosis on known esoph varices. - Physicial Exam PE: 03/18/19 13:30 awake alert lungs clear bilat heart rrr no mrg abd soft mild ruq ttp no rebound no guarding. ext wwp. alert oriented. - Medical Decision Making 03/18/19 13:31 64 yo M h/o etoh abuse here with intox, n/v hemetemasis in ED differential opal newberry, pud, gastritis, pancreatitis, ruq ttp. ct a/p with fatty liver, enlarged prostate, noted dilated gb wtih wall thickening, no pericholecystic fluid or stones. plan us ruq lipase normal. pt requesting librium would like to go to detox but refusing park care. given list of rehab sites. Heart Score/ECG Review #1 General ECG Interpretation: Sinus Rhythm, Normal Rate, Normal Intervals, No acute ischemic changes
[2019-03-18] MEDS ORDERED: chlordiazePOXIDE HCL 25 MG CAPSULE ONE (14:44)
[2019-03-18] MEDS ORDERED: LACTATED RINGERS SOLUTION 1000 ML INFUS.BAG IV ONE (15:47)
[2019-03-18] MEDS ORDERED: PIPERACILLIN/TAZOB 4.5 GM 4.5 GM in DEXTROSE 5%-WATER 100 ML IVPB ONE (16:11)
[2019-03-18] MEDS ORDERED: PIPERACILLIN/TAZOB 4.5 GM 4.5 GM/100 ML BAG IVPB ONE (17:05)
--- NOTE | 2019-03-18 17:59 | CONSULT ---
Consult Consult Specialty:: General Surgery Referred by:: Denis Green Reason for Consultation:: ?cholecystitis - gallstone vs polyp, RUQ pain - History of Present Illness Chief Complaint: right costal margin/rib edge pain, hematemesis History of Present Illness: 64yo alcoholic M with HTN, HLD, mesothelioma, homeless and not taking any regular medications, frequent ER patient, presented this morning c/o R lower rib pain and vomiting blood. He last drank yesterday - drinks a pint of vodka daily. He had blood in his vomit this morning, also documented in ER. He states he never vomited blood before. He denies chest or abdominal pain with the vomiting, but does have pain in his right lower rib edge. He thinks it might be because of a recent fall. He also denies previous EGD, though he thinks he may have had a colonoscopy in the past. He was treated 5 yrs ago at [facility] for mesothelioma, and they looked down in his lungs, but he says "they said they couldn't do anything for it." He had quit drinking previously for 6 years, and is interested in rehab/quitting. No known history of cirrhosis or varices, but + fatty liver on past imaging. ER obtained chest/abd/pelvis CT to r/o esophageal tear/rupture, which was negative for that, and then got RUQ ultrasound, which showed distended gallbladder with no stones, possible little sludge, and stable (from 6m ago) 4mm polyp vs nonshadowing stone in neck region with no gallstones otherwise noted. WBC is 5K, AST, alk phos slightly over normal with normal bili, ALT, lipase. Surgery was asked to assess for possible cholecystitis. He is seen and examined in ER, awake and pleasantly cooperative, though a bit forgetful at times. No further vomiting since earlier this morning. Denies fever /chills, diarrhea/constipation. Voiding in urinal dark yellow. He reports having [place] in the park 4 [place] ago, but does not remember whether he fell on the ground or onto/against any object. He noted bruising to his right leg, but not his abdomen or thorax. He points directly to his anterolateral right costal margin as the source of his pain. - History Source History Provided By: Patient Limitations to Obtaining History: Other (fair historian only) - Past Medical History Cardio/Vascular: Yes: HTN, Hyperlipdemia Pulmonary: Yes: Cancer (Mesothelioma) Hepatobiliary: No: Cholelithiasis (no stones on US 11/28, 01/30, 08/31 (though 4mm polyp in neck on that study)) Psych: Yes: Addictions (EtOH) Musculoskeletal: Yes: Chronic low back pain - Past Surgical History Past Surgical History: Yes: None, Colonoscopy (pt may have had - not sure). 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 History of Recent Travel: No Home Medications - Allergies Allergies/Adverse Reactions: Allergies Allergy/AdvReac Type Severity Reaction Status Date / Time Fish Containing Products Allergy Mild Swelling Verified 03/18/19 08:09 No Known Drug Allergies Allergy Verified 03/18/19 08:09 - Home Medications Home Medications: Ambulatory Orders Unobtainable 03/17/19 Home Medications (free text): pt states he takes no regular medications Family Medical History Family Hx Cancer: Mother (knees - was going to have replacement, got infection and (in her 80s)), Father (prostate, of in his 80s) Family Hx Coronary Artery Disease: Son ( of AL at 35) Review of Systems - Review of Systems Constitutional: denies: Chills, Fever Eyes: denies: Blurred Vision, Recent Change in Vision HENT: reports: Nasal Congestion. denies: Difficult Swallowing, Throat Pain Neck: denies: Swollen Glands, Tenderness Cardiovascular: denies: Chest Pain, Palpitations Respiratory: denies: Cough, SOB Gastrointestinal: reports: Vomiting, Vomiting Blood (with hpi). denies: Abdominal Pain (denies), Constipation, Diarrhea Genitourinary: denies: Burning, Dysuria Musculoskeletal: reports: Back Pain, Other (right anterolateral rib/costal margin pain/tenderness) Integumentary: denies: Change in Color, Rash Neurological: reports: Confusion (with intoxication), Tremors. denies: Dizziness, Headache Physical Exam Vital Signs: Vital Signs Temperature 98.7 F 03/18/19 09:35 Pulse Rate 96 H 03/18/19 09:35 Respiratory Rate 18 03/18/19 09:35 Blood Pressure 176/99 H 03/18/19 09:35 O2 Sat by Pulse Oximetry (%) 95 03/18/19 09:35 Constitutional: Yes: No Distress, Calm, Obese Eyes: Yes: Conjunctiva Clear, EOM Intact. No: Sclera Icterus HENT: Yes: Atraumatic, Normocephalic Neck: Yes: Supple, Trachea Midline Cardiovascular: Yes: Tachycardia (mild). No: Pulse Irregular Respiratory: Yes: Regular, CTA Bilaterally Gastrointestinal: Yes: Normal Bowel Sounds, Soft, Abdomen, Obese. No: Tenderness (no formal abdominal tenderness - RUQ refers to right costal margin - tender directly over lowest right anterolateral rib), Tenderness, Epigastrium ...Rectal Exam: Yes: Deferred Renal/: No: CVA Tenderness - Left, CVA Tenderness - Right Musculoskeletal: Yes: Other (tender directly over right anterolateral rib margin - no bruising there). No: Joint Stiffness, Joint Swelling Extremities: No: Cool, Cyanosis Edema: Yes Edema: LLE: Trace, RLE: Trace Peripheral Pulses WNL: Yes Integumentary: No: Jaundice, Rash Neurological: Yes: Alert, Oriented, Confusion (some forgetfulness - coherent and able to give most history ok), Tremors (mild) Psychiatric: Yes: Alert, Oriented. No: Agitated Labs: CBC, BMP 03/18/19 08:50 03/18/19 08:50 CMP Sodium 142 mmol/L (136-145) 03/18/19 08:50 Potassium 3.4 mmol/L (3.5-5.1) L 03/18/19 08:50 Chloride 103 mmol/L (98-107) 03/18/19 08:50 Carbon Dioxide 29 mmol/L (21-32) 03/18/19 08:50 Anion Gap 10 MMOL/L (8-16) 03/18/19 08:50 BUN 7.5 mg/dL (7-18) 03/18/19 08:50 Creatinine 0.6 mg/dL (0.55-1.3) 03/18/19 08:50 Est GFR (CKD-EPI)AfAm 123.15 03/18/19 08:50 Est GFR (CKD-EPI)NonAf 106.25 03/18/19 08:50 Random Glucose 83 mg/dL (74-106) 03/18/19 08:50 Calcium 8.3 mg/dL (8.5-10.1) L 03/18/19 08:50 Total Bilirubin 0.9 mg/dL (0.2-1) 03/18/19 08:50 AST 69 U/L (15-37) H 03/18/19 08:50 ALT 33 U/L (13-61) 03/18/19 08:50 Alkaline Phosphatase 123 U/L (45-117) H 03/18/19 08:50 Creatine Kinase 147 U/L (26-308) 03/18/19 08:50 Troponin I < 0.02 ng/ml (0.00-0.05) 03/18/19 08:50 Total Protein 6.3 g/dl (6.4-8.2) L 03/18/19 08:50 Albumin 3.0 g/dl (3.4-5.0) L 03/18/19 08:50 Lipase 63 U/L (73-393) L 03/18/19 08:50 INR, PTT INR 1.04 (0.83-1.09) 03/18/19 08:50 K low AST, Alk phos slightly elevated normal WBC anemia normal renal function Imaging - Results Cat Scan: Report Reviewed, Image Reviewed (ascending/thoracic aortic aneurysm 4.2cm stable; hepatomegaly, no paraesophageal or splenic hilum varices noted, + IVC filter; multiple bilateral healed rib fractures, no significant difference at right costal margin between current study and 08/31) Ultrasound: Report Reviewed, Image Reviewed (images reviewed from 11/28, 01/30, , today - enlarged, fatty liver; pt has no gallstones; tiny non-shadowing spot possible/likely polyp in neck region 4mm, stable on last 2 studies; gallbladder distended, no pericholecystic fluid or ductal dilation, wall varies between 2-3 and 5mm) Problem List - Problems (1) Rib pain on right side Assessment/Plan: RUQ pain seems to be mostly centered on lowest rib at right costal margin anterolaterally tender directly over rib edge, not truly over liver/RUQ/abdomen - refers to rib area per pt no obvious acuity to this region on CT scan - similar appearance to 6 mos ago, though site does appear consistent with old/healed fracture given report of recent fall - may have injured the area consider treating as clinical fx or contusion pain meds prn - NSAIDs over tylenol if not contraindicated encourage good pulmonary toilet NO clear evidence of cholecystitis or infectious process no gallstones imaging finding most likely represents tiny polyp, not stone would not give antibiotics no acute general surgical issues identified will sign off at this time - please call with questions as needed Thank you for the opportunity to participate in the care of this patient. Code(s): R07.81 - PLEURODYNIA (2) Hematemesis Assessment/Plan: pt had blood in emesis in ER differential includes PUD, MW tear, variceal bleeding, tumor, gastritis he does not think he has ever had upper endoscopy (lungs yes, stomach no) recommend GI consultation to consider EGD trend labs, H/H Code(s): K92.0 - HEMATEMESIS Qualifiers: Nausea presence: with nausea Qualified Code(s): K92.0 - Hematemesis (3) Alcohol dependence Assessment/Plan: pt interested in inpatient detox and rehab recommend SW consult for resources Code(s): F10.20 - ALCOHOL DEPENDENCE, UNCOMPLICATED Qualifiers: Substance use status: in withdrawal Complication of substance-induced condition: uncomplicated Qualified Code(s): F10.230 - Alcohol dependence with withdrawal, uncomplicated (4) HTN (hypertension) Code(s): I10 - ESSENTIAL (PRIMARY) HYPERTENSION Qualifiers: Hypertension type: essential hypertension Qualified Code(s): I10 - Essential (primary) hypertension (5) Obesity (BMI 30-39.9) Code(s): E66.9 - OBESITY, UNSPECIFIED
--- NOTE | 2019-03-18 20:43 | HP ---
CHIEF COMPLAINT: alcohol detox, right rib pain, hematemesis PCP: none HISTORY OF PRESENT ILLNESS: Mr. De Leon is a 64y/o male with alcohol use disorder, mesothelioma, and uncontrolled HTN presents for alcohol detox as well as right side rib pain x 2 weeks and hematemesis x 1 today. He drinks 1-2 pints of vodka daily with last drink 2 days ago. He began drinking at age 16 and has been drinking heavily for an extended period of time. He is unable to recall his last period of sobriety. He is having associated tremors, chills, nausea, headache, and dizziness. He denies head injury or LOC. He is requesting librium for detox. He was in the ED yesterday for He also reports gradual onset of sharp pain that is now 10 out of 10 located in the lateral and axillary aspect of lower right ribs. He does not associate the pain with activities. He reports no known injury. He also reports 1 episode of bright red blood in emesis at the ED today. He denies abdominal pain prior to vomiting. He also denies chest pain, diarrhea, and dark stool. ER course was notable for: (1) U/S 4mm echogenic focus in gallbladder neck (2) EKG no ST changes, QTc 501, trop negative (3) librium (4) K 3.4 Recent Travel: none PAST MEDICAL HISTORY: alcohol use disorder mesothelioma HTN PAST SURGICAL HISTORY: IVC filter Social History: Smoking: denies Alcohol: 1-2 pints vodka daily, first drink at 16 Drugs: denies Pt is homeless, stays at [facility] Allergies Fish Containing Products Allergy (Mild, Verified 03/18/19 08:09) Swelling No Known Drug Allergies Allergy (Verified 03/18/19 08:09) HOME MEDICATIONS: Home Medications Medication Instructions Recorded Unobtainable 03/17/19 REVIEW OF SYSTEMS CONSTITUTIONAL: Present: chills Absent: fever, diaphoresis HEENT: Absent: rhinorrhea, nasal congestion, throat pain CARDIOVASCULAR: Absent: chest pain, syncope RESPIRATORY: Present: cough Absent: shortness of breath, wheezing ABDOMINAL: Present: abdominal pain, abdominal distension, nausea, vomiting, hematemesis Absent: diarrhea, constipation, melena GENITOURINARY: Present: flank pain Absent: dysuria MUSCULOSKELETAL: Absent: myalgia, arthralgia, joint swelling, back pain, neck pain SKIN: Absent: rash, itching, pallor HEMATOLOGIC/IMMUNOLOGIC: Absent: easy bleeding, easy bruising, lymphadenopathy, frequent infections ENDOCRINE: Absent: unexplained weight gain, unexplained weight loss, heat intolerance, cold intolerance NEUROLOGIC: Present: headache, dizziness Absent: seizures, paresthesias PSYCHIATRIC: Absent: anxiety, depression, suicidal or homicidal ideation, hallucinations. PHYSICAL EXAMINATION Vital Signs - 24 hr 03/18/19 03/18/19 07:16 09:35 Temperature 98.7 F Pulse Rate 113 H Pulse Rate [ 96 H Radial] Respiratory 22 H 18 Rate Blood Pressure 151/100 Blood Pressure 176/99 H [Arm] O2 Sat by Pulse 94 L 95 Oximetry (%) GENERAL: Awake, alert, and fully oriented, in no acute distress. Disheveled. HEAD: Normal with no signs of trauma. EYES: Pupils equal, round and reactive to light, extraocular movements intact, sclera anicteric, conjunctiva clear. No lid lag. EARS, NOSE, THROAT: Ears normal, nares patent, moist mucous membranes. NECK: Normal range of motion, supple without lymphadenopathy, JVD, or masses. LUNGS: Breath sounds equal, clear to auscultation bilaterally. No wheezes, and no crackles. No accessory muscle use. HEART: Regular rate and rhythm, normal S1 and S2 without murmur, rub or gallop. ABDOMEN: Distended, RUQ and RLQ tender to light and deep palpation, + Pabon's sign, guarding, no ecchymosis MUSCULOSKELETAL: Normal range of motion at all joints. No bony deformities or tenderness. UPPER EXTREMITIES: 2+ pulses, warm, well-perfused. No cyanosis. No clubbing. No peripheral edema. LOWER EXTREMITIES: 2+ pulses, warm, well-perfused. No calf tenderness. +1 pitting edema bilateral feet, tender to touch NEUROLOGICAL: Cranial nerves II-XII intact. Normal speech. Gait not observed. PSYCHIATRIC: Cooperative. Good eye contact. Appropriate mood and affect. SKIN: Warm, dry, normal turgor, no rashes or lesions noted, normal capillary refill. Pt deferred rectal exam. Laboratory Results - last 24 hr 03/18/19 03/18/19 03/18/19 08:50 08:50 08:50 WBC 5.0 RBC 3.56 L Hgb 9.9 L Hct 30.5 L MCV 85.7 MCH 27.9 MCHC 32.6 RDW 19.9 H Plt Count 210 D MPV 7.6 Absolute Neuts (auto) 3.4 Neutrophils % 67.9 Lymphocytes % 22.8 D Monocytes % 7.2 Eosinophils % 1.0 Basophils % 1.1 D Nucleated RBC % 0 PT with INR INR PTT (Actin FS) Sodium 142 Potassium 3.4 L Chloride 103 Carbon Dioxide 29 Anion Gap 10 BUN 7.5 Creatinine 0.6 Est GFR (CKD-EPI)AfAm 123.15 Est GFR (CKD-EPI)NonAf 106.25 Random Glucose 83 Calcium 8.3 L Total Bilirubin 0.9 AST 69 H ALT 33 Alkaline Phosphatase 123 H Creatine Kinase 147 Troponin I < 0.02 Total Protein 6.3 L Albumin 3.0 L Lipase 63 L Blood Type Antibody Screen 03/18/19 03/18/19 08:50 09:38 WBC RBC Hgb Hct MCV MCH MCHC RDW Plt Count MPV Absolute Neuts (auto) Neutrophils % Lymphocytes % Monocytes % Eosinophils % Basophils % Nucleated RBC % PT with INR 12.30 INR 1.04 PTT (Actin FS) 29.9 Sodium Potassium Chloride Carbon Dioxide Anion Gap BUN Creatinine Est GFR (CKD-EPI)AfAm Est GFR (CKD-EPI)NonAf Random Glucose Calcium Total Bilirubin AST ALT Alkaline Phosphatase Creatine Kinase Troponin I Total Protein Albumin Lipase Blood Type O POSITIVE Antibody Screen Negative Imaging CT findings- javon ascending aortic aneurysmal dilatation 4.4cm, enlarged main pulm artery 4.2cm, IVC filter U/S- 4mm echogenic focus in gallbladder neck polyp vs non-shadowing stone, mild thickening of gallbladder wall, no pericholecystic free fluid EKG- NSR 91, no ST changes, QTc 501 ASSESSMENT/PLAN: Mr. De Leon is a 64y/o male with alcohol use disorder, mesothelioma, and HTN who presents for alcohol detox, right side rib/abdominal pain x 2 weeks, and 1 episode of hematemesis. #hematemesis, possibly Milena-Alexis tear vs alcohol-induced gastritis Report of 1 time in ED. Associated abdominal/rib pain right side for 2 weeks. History of heavy alcohol use. No known hx of peptic ulcer disease. CT showed javon ascending aortic aneurysmal dilatation 4.4cm, enlarged main pulm artery 4.2cm, IVC filter in place. Hb 9.9, near baseline -monitor CBC -NPO -pantoprazole drip -surgery consult- no indication for surgery at this time, possible tiny polyp in gallbladder, will sign off -GI consult -SCDs over chemical anti-coagulation #alcohol use disorder Heavy drinker for years with last drink 2 days ago. Unreliable historian. [place] 9 at admission. -Ativan PRN protocol because NPO -banana bag 100mL/hr -MV daily -thiamine daily -folic acid daily -VS Q4H -urine tox and ETOH #QTc prolongation 501 -avoid QT prolonging agents #hypokalemia 3.4 -replete -recheck labs #hypertension Pt reports associated with alcohol withdrawal. Not on daily medication. -monitor, consider propranolol if continues to be elevated as can help GI bleed prevention related to alcohol use FEN banana bag 100mL/hr monitor K NPO except for meds DVT Ppx SCDs: do not give chemical anti-coag because of GI bleeding dispo med/surg low threshold for transferring Visit type - Emergency Visit Emergency Visit: Yes ED Registration Date: 03/18/19 Care time: The patient presented to the Emergency Department on the above date and was hospitalized for further evaluation of their emergent condition. - New Patient This patient is new to me today: Yes Date on this admission: 03/19/19 - Critical Care Critical Care patient: No ATTENDING PHYSICIAN STATEMENT I saw and evaluated the patient. I reviewed the resident's note and discussed the case with the resident. I agree with the resident's findings and plan as documented. SUBJECTIVE: OBJECTIVE: ASSESSMENT AND PLAN:
[2019-03-18] MEDS ORDERED: chlordiazePOXIDE HCL 25 MG CAPSULE PO PRN ×2 (22:39→23:02)
[2019-03-18] MEDS ORDERED: FOLIC ACID INJECTION - 1 MG, THIAMINE HCL 100 MG, MULTIVIT INJECTION ADULT 10 ML in SOD... IVPB ONE (23:00)
[2019-03-18 23:21] VITALS: BMI 35.1
[2019-03-18] MEDS: KCL 10 MEQ IVPB 10 MEQ/100 ML INFUS.BAG IVPB SCH ×2 (23:33→23:50)
[2019-03-18] MEDS: chlordiazePOXIDE HCL 25 MG CAPSULE PO SCH (23:33)
[2019-03-19] MEDS: KCL 10 MEQ IVPB 10 MEQ/100 ML INFUS.BAG IVPB SCH ×3 (01:00→15:51)
--- NOTE | 2019-03-19 02:34 | PN ---
Teaching Attending Note Name of Resident: Ilana Oh ATTENDING PHYSICIAN STATEMENT I saw and evaluated the patient. I reviewed the resident's note and discussed the case with the resident. I agree with the resident's findings and plan as documented. SUBJECTIVE: 64yo alcoholic M with HTN, HLD, mesothelioma, homeless and not taking any regular medications, frequent ER patient, presented c/o R lower rib pain and vomiting blood- reports to have vomited about half cup of blood last morning. He last drank yesterday - drinks a pint of vodka daily. Also vomited blood in ER. Does not complain of pain. OBJECTIVE: Last Vital Signs Temp Pulse Resp BP Pulse Ox 98.7 F 92 H 20 150/96 97 03/18/19 23:36 03/18/19 23:36 03/18/19 23:36 03/18/19 23:36 03/18/19 22:56 general-disheveled heent - clear sclera cv -s1+s2+rrr chest clear abdomen -soft, bs+, obese skin - no rashes Abnormal Lab Results 03/18/19 03/18/19 03/18/19 08:50 08:50 08:50 RBC 3.56 L Hgb 9.9 L Hct 30.5 L RDW 19.9 H Potassium 3.4 L Calcium 8.3 L AST 69 H Alkaline Phosphatase 123 H Total Protein 6.3 L Albumin 3.0 L Lipase 63 L imaging studies reviewed chest ct- aortic anneurysm- 4.4 cm without change, enlarged pulm artery liver u/s reviewed - fatty liver ASSESSMENT AND PLAN: #Chronic alcoholism - multiple ER visits, noncompliant #Hematemesis -hemodynamcially stable at this time, h,h stable. Never had EGD so do not know source. Differential diagnosis includes erosive gastritis, PUD, erosive esophagitis. #HTN #HLD #RUQ pain? evaluated by Dr. Almendarez and deemed to not have cholecystitis as this time and no surgical intervention #Aortic anneurysm as described above -admit to med/surg -iv fluid hydration -npo -monitor VS closely -if repeat hematemesis or hemodynamic instability, would upgrade to ICU -GI consult for egd -monitor cbc q6hrs -avoid antiplatelets or anticoagulation -thiamine -folate -MV -banana bag -librium protocol -continue to monitor aortic anneurysm -BP control w/ antihypertensive therapy -scds for dvt ppx
[2019-03-19 03:53] LABS: COCAINE, UR NEGATIVE ng/ml (CUTOFF=300); METHADONE, UR NEGATIVE ng/ml (CUTOFF=300); OPIATES, URI NEGATIVE ng/ml (CUTOFF=300); PHENCYCLIDINE,URINE NEGATIVE ng/ml (CUTOFF=25); URINE AMPHETAMINES NEGATIVE ng/ml (CUTOFF=500); URINE BARBITURATES NEGATIVE ng/ml (CUTOFF=200)
[2019-03-19 04:10] LABS: URINE BENZODIAZEPINES POSITIVE ng/ml (CUTOFF=200)
[2019-03-19] MEDS: chlordiazePOXIDE HCL 25 MG CAPSULE PO SCH ×4 (06:22→22:59)
[2019-03-19] MEDS ORDERED: FOLIC ACID INJECTION - 1 MG, THIAMINE HCL 100 MG, MULTIVIT INJECTION ADULT 10 ML in SOD... IVPB ONE ×3 (06:29→09:25)
[2019-03-19] MEDS ORDERED: LORazepam 2 MG/ML SDV VIAL IVPB PRN (06:30)
--- NOTE | 2019-03-19 09:19 | PN ---
Progress Note (short form) - Note Progress Note: pt is a poor historian and very vague on HPI c/o diffuse vague abdominal pain. vomited 1/2 cup of yocasta blood yesterday. does not recall what was going on around the incident (if he was retching or having abdominal pain). denies Cp, SOB, fevr, chills, N/V/C/D, does not know when his last BM was. never had EGD and refuses to have one Current Medications Generic Name Dose Route Start Last Admin Trade Name Freq PRN Reason Stop Dose Admin Folic Acid 0.4 mg 03/19/19 10:00 Folic Acid Injection - IVPB 03/19/19 10:01 ONCE ONE Pantoprazole Sodium 80 mg/ 100 mls @ 10 mls/hr 03/19/19 06:19 Sodium Chloride IVPB Q10H CAREY 8 MG/HR Folic Acid 1 mg/ Thiamine HCl 1,000 mls @ 125 mls/hr 03/19/19 06:29 100 mg/ Multivitamins/Minerals IVPB 03/19/19 14:28 10 ml/ Sodium Chloride ONCE ONE Lorazepam 2 mg 03/19/19 06:30 Ativan Injection - IVPB Q4H PRN ANXIETY Multivitamins/Minerals 10 ml 03/19/19 10:00 Infuvite Adult - IV DAILY CAREY Thiamine HCl 200 mg 03/19/19 10:00 Vitamin B1 Injection - IVPB DAILY CAREY Last Vital Signs Temp Pulse Resp BP Pulse Ox 98.5 F 87 20 118/79 97 03/19/19 05:00 03/19/19 07:02 03/18/19 23:36 03/19/19 07:02 03/18/19 22:56 General NAD, dishelved CV S1 S2 RRR no murmur/rub/gallop Lungs CTA B/L no wheezing/rales/rhonchi Abdomen soft NT/ND obese Extremities no tremors CBCD WBC 5.0 K/mm3 (4.0-10.0) 03/18/19 08:50 RBC 3.56 M/mm3 (4.00-5.60) L 03/18/19 08:50 Hgb 9.9 GM/dL (11.7-16.9) L 03/18/19 08:50 Hct 30.5 % (35.4-49) L 03/18/19 08:50 MCV 85.7 fl (80-96) 03/18/19 08:50 MCHC 32.6 g/dl (32.0-35.9) 03/18/19 08:50 RDW 19.9 % (11.9-15.9) H 03/18/19 08:50 Plt Count 210 K/MM3 (134-434) D 03/18/19 08:50 MPV 7.6 fl (7.5-11.1) 03/18/19 08:50 CMP Sodium 142 mmol/L (136-145) 03/18/19 08:50 Potassium 3.4 mmol/L (3.5-5.1) L 03/18/19 08:50 Chloride 103 mmol/L (98-107) 03/18/19 08:50 Carbon Dioxide 29 mmol/L (21-32) 03/18/19 08:50 Anion Gap 10 MMOL/L (8-16) 03/18/19 08:50 BUN 7.5 mg/dL (7-18) 03/18/19 08:50 Creatinine 0.6 mg/dL (0.55-1.3) 03/18/19 08:50 Calcium 8.3 mg/dL (8.5-10.1) L 03/18/19 08:50 Total Bilirubin 0.9 mg/dL (0.2-1) 03/18/19 08:50 AST 69 U/L (15-37) H 03/18/19 08:50 ALT 33 U/L (13-61) 03/18/19 08:50 Alkaline Phosphatase 123 U/L (45-117) H 03/18/19 08:50 Total Protein 6.3 g/dl (6.4-8.2) L 03/18/19 08:50 Albumin 3.0 g/dl (3.4-5.0) L 03/18/19 08:50 A/P 64yo M undomiciled with PMH continuous ETOH dependence, HTN, Dyslipidemia, AAA, PAF, s/P IVC filter who does not take any of his medications as instructed coming in with 1 episode of hemetemsis 1. hemetemsis- clinically stable. no repeat episodes. awaiting repeat CBC. concern for opal newberry, PUD or variceal bleeding. likely not actively bleeding at this time. cont NPO, ppi ggt, IVF, serial Hgb. GI eval. pt refusing EGD 2. hypokalemia- KCl in ivf 3. GB polyp- was evaluated by surgery for possible acute cholecystitis which is not likely at this time given as he is not having signs of infection and not RUQ pain. if this is polyp should be moniotred with outpatient u/s 4. ETOH withdrawal- CIWA 0. on librium protocol. cont protocol. banana bag. counselled on not drinking. refuses to go to [facility] for detox or inpatient rehab 5. HTN- uncontrolled. does not take meds. will start lisinopril 6. PAF- not on anticoagulation due to frequent falls and drinking.was recommended to be on asa which pt has not been taking and now coming in with GI bleed. will re-start toprol for control 7. ETOH transaminitis- due to ETOH. stable for baseline. imaging showing fatty liver. counselled on ETOH abstinence 8. AAA- stable from previous 4.4cm 9. s/p IVC filter 10. DVT ppx- SCD. hold pharmacologic anticoagulation in setting of GI bleed Visit type - Emergency Visit Emergency Visit: Yes ED Registration Date: 03/18/19 Care time: The patient presented to the Emergency Department on the above date and was hospitalized for further evaluation of their emergent condition. - New Patient This patient is new to me today: Yes Date on this admission: 03/19/19 - Critical Care Critical Care patient: No - Discharge Referral Referred to [facility] No
[2019-03-19 09:23] LABS: HEMATOCRIT 31.3 % (35.4-49); HEMOGLOBIN 10.1 GM/dL (11.7-16.9); MCH 27.6 pg (25.7-33.7); MCHC 32.3 g/dl (32.0-35.9); MEAN CELL VOLUME 85.4 fl (80-96); MEAN PLT VOLUME 7.7 fl (7.5-11.1); PLATELET COUNT 182 K/MM3 (134-434); RBC 3.66 M/mm3 (4.00-5.60); RDW 20.2 % (11.9-15.9); WHITE BLOOD COUNT 5.4 K/mm3 (4.0-10.0)
[2019-03-19 09:56] LABS: BLOOD UREA NITROGEN 5.7 mg/dL (7-18); CREATININE 0.6 mg/dL (0.55-1.3)
[2019-03-19 09:57] LABS: BILIRUBIN,TOTAL 1.6 mg/dL (0.2-1); CALCIUM 7.8 mg/dL (8.5-10.1); PHOSPHOROUS 2.9 mg/dL (2.5-4.9)
[2019-03-19] MEDS ORDERED: THIAMINE HCL 200 MG/2 ML VIAL IVPB SCH (10:00)
[2019-03-19] MEDS ORDERED: PANTOPRAZOLE SODIUM 40 MG VIAL IVPUSH SCH (10:00)
[2019-03-19] MEDS ORDERED: MULTIVIT INJ. ADULT COMBO WITH VIT K 1 COMBO 10 ML VIAL IV SCH (10:00)
[2019-03-19] MEDS ORDERED: FOLIC ACID 5 MG/1 ML IVPB ONE (10:00)
[2019-03-19 10:01] LABS: POTASSIUM 2.5 mmol/L (3.5-5.1)
--- NOTE | 2019-03-19 10:27 | PN ---
Progress Note (short form) - Note Progress Note: 64 y.o. M, chronic alcohol abuse, chronic anemia, had small volume hematemesis yesterday. No change in Hgb/Hct from his baseline of 04/13: CBC WBC 5.4 K/mm3 (4.0-10.0) 03/19/19 08:45 RBC 3.66 M/mm3 (4.00-5.60) L 03/19/19 08:45 Hgb 10.1 GM/dL (11.7-16.9) L 03/19/19 08:45 Hct 31.3 % (35.4-49) L 03/19/19 08:45 MCV 85.4 fl (80-96) 03/19/19 08:45 MCH 27.6 pg (25.7-33.7) 03/19/19 08:45 MCHC 32.3 g/dl (32.0-35.9) 03/19/19 08:45 RDW 20.2 % (11.9-15.9) H 03/19/19 08:45 Plt Count 182 K/MM3 (134-434) 03/19/19 08:45 MPV 7.7 fl (7.5-11.1) 03/19/19 08:45 Absolute Neuts (auto) 3.4 K/mm3 (1.5-8.0) 03/18/19 08:50 Neutrophils % 67.9 % (42.8-82.8) 03/18/19 08:50 Lymphocytes % 22.8 % (8-40) D 03/18/19 08:50 Monocytes % 7.2 % (3.8-10.2) 03/18/19 08:50 Eosinophils % 1.0 % (0-4.5) 03/18/19 08:50 Basophils % 1.1 % (0-2.0) D 03/18/19 08:50 Nucleated RBC % 0 % (0-0) 03/18/19 08:50 Pt refuses any EGD. He says he wants to eat now. His only concern now is he feels he is going into DTs. On exam, though, he is alert, not tremulous at present. He is receiving Librium, B vitamins. Serum potassium was low. Will allow oral intake. Agree with current management of his alcohol withdrawal.
[2019-03-19] MEDS ORDERED: PT OWN MED DRAWER 7, Y5N ONE (10:38)
[2019-03-19] MEDS: METOPROLOL TARTRATE 25 MG TABLET (FP) PO SCH ×2 (11:02→21:34)
[2019-03-19] MEDS: LISINOPRIL 10 MG TABLET (FP) PO SCH (11:03)
[2019-03-19] MEDS: PANTOPRAZOLE SODIUM 80 MG in SODIUM CHLORIDE 100 ML IVPB SCH ×3 (11:03→21:35)
[2019-03-19] MEDS ORDERED: MAGNESIUM SULF 50% (8.12 MEQ/2 ML-1 GM VIAL) IVPB ONE (12:49)
[2019-03-19] MEDS ORDERED: MAGNESIUM OXIDE 400 MG TABLET (FP) PO ONE (12:49)
[2019-03-19] MEDS ORDERED: POTASSIUM CHLORIDE TABS 20 MEQ TABLET.ER (FP) PO ONE (12:49)
[2019-03-19] MEDS: SODIUM CHLORIDE 0.9%/KCL 20 MEQ/1,000 ML INFUS.BAG IV SCH (14:04)
[2019-03-19 18:39] LABS: MAGNESIUM 1.5 mg/dL (1.8-2.4)
[2019-03-19 18:49] LABS: POTASSIUM 2.9 mmol/L (3.5-5.1)
[2019-03-20] MEDS: SODIUM CHLORIDE 0.9%/KCL 20 MEQ/1,000 ML INFUS.BAG IV SCH ×3 (01:05→23:53)
[2019-03-20] MEDS: PANTOPRAZOLE SODIUM 80 MG in SODIUM CHLORIDE 100 ML IVPB SCH (02:36)
[2019-03-20] MEDS ORDERED: chlordiazePOXIDE HCL 25 MG CAPSULE PO SCH ×2 (05:00)
[2019-03-20] MEDS: chlordiazePOXIDE HCL 25 MG CAPSULE PO SCH ×3 (05:26→17:03)
[2019-03-20] MEDS ORDERED: MAGNESIUM SULF 50% (8.12 MEQ/2 ML-1 GM VIAL) IVPB ONE ×2 (07:17→11:09)
[2019-03-20] MEDS ORDERED: KCL 10 MEQ IVPB 10 MEQ/100 ML INFUS.BAG IVPB SCH (07:30)
[2019-03-20 08:13] LABS: HEMATOCRIT 29.8 % (35.4-49); HEMOGLOBIN 9.7 GM/dL (11.7-16.9); MCHC 32.6 g/dl (32.0-35.9); MEAN CELL VOLUME 85.8 fl (80-96); MEAN PLT VOLUME 7.9 fl (7.5-11.1); PLATELET COUNT 175 K/MM3 (134-434); RBC 3.47 M/mm3 (4.00-5.60); RDW 19.7 % (11.9-15.9)
[2019-03-20 08:37] LABS: ALBUMIN 2.7 g/dl (3.4-5.0); BILIRUBIN,TOTAL 1.1 mg/dL (0.2-1); CALCIUM 7.7 mg/dL (8.5-10.1); CREATININE 0.6 mg/dL (0.55-1.3); MAGNESIUM 1.4 mg/dL (1.8-2.4); PHOSPHOROUS 3.5 mg/dL (2.5-4.9); TOT PROT 5.7 g/dl (6.4-8.2)
[2019-03-20 08:51] LABS: POTASSIUM 2.9 mmol/L (3.5-5.1)
[2019-03-20] MEDS: METOPROLOL TARTRATE 25 MG TABLET (FP) PO SCH ×2 (09:25→21:58)
[2019-03-20] MEDS: LISINOPRIL 10 MG TABLET (FP) PO SCH (09:27)
--- NOTE | 2019-03-20 10:54 | PN ---
Teaching Attending Note Name of Resident: Gagan Centeno ATTENDING PHYSICIAN STATEMENT I saw and evaluated the patient. I reviewed the resident's note and discussed the case with the resident. I agree with the resident's findings and plan as documented. SUBJECTIVE:asymptomatic. no repeat episodes of vomiting. tolerating diet. denies CP, SOB, fever, chills, N/V/C/D OBJECTIVE: Last Vital Signs Temp Pulse Resp BP Pulse Ox 99.0 F 73 19 129/77 95 03/20/19 05:00 03/20/19 01:00 03/19/19 23:00 03/20/19 01:00 03/19/19 22:00 General NAD CV S1 S2 RRR Abdomen soft NT/ND obese extremiteis no tremors ASSESSMENT AND PLAN: 64yo M undomiciled with PMH continuous ETOH dependence, HTN, Dyslipidemia, AAA, PAF, s/P IVC filter who does not take any of his medications as instructed coming in with 1 episode of hemetemsis 1. hemetemsis- clinically stable. no repeat episodes. hgb stable. patient still refusing EGD. can defer at this time. will d/c PPI ggt. 2. severe hypokalemia- refusing K riders and K po. agreeable only in the IVF. will cont at this time. re-discussed with him today need for additional K but refuses. states he understands of consequences of hypokalemia. refusing cardiac monitoring 3. hypomagnesmia- Mg IV. refuses po magenesium 4. GB polyp- was evaluated by surgery for possible acute cholecystitis which is not likely at this time given as he is not having signs of infection and not RUQ pain. if this is polyp should be moniotred with outpatient u/s 5. ETOH withdrawal- CIWA 0. on librium protocol. no signs of withdrawal. requesting libirum to be given "every few hours". informed him of protocol and that it will be followed. re-assured that he does not look like he is withdrawing and is comfortable. refuses to go to [facility] for detox. 6. HTN- controlled. cont current management 7. PAF- not on anticoagulation due to frequent falls and drinking.was recommended to be on asa which pt has not been taking and now coming in with GI bleed. will cont to hold asa 8. ETOH transaminitis- due to ETOH. stable for baseline. imaging showing fatty liver. counselled on ETOH abstinence 9. AAA- stable from previous 4.4cm 10. s/p IVC filter 11. DVT ppx- SCD. hold pharmacologic anticoagulation in setting of GI bleed
[2019-03-20] MEDS ORDERED: POTASSIUM CHLORIDE ORAL LIQUID 20 MEQ/15 ML PO ONE (11:11)
[2019-03-20] MEDS: KCL 10 MEQ IVPB 10 MEQ/100 ML INFUS.BAG IVPB SCH ×2 (12:20→12:29)
--- NOTE | 2019-03-20 19:36 | PN ---
Physical Exam: SUBJECTIVE: Patient seen and examined. Denies abdominal pain, blood per os. Endorses trouble swallowing. Tolerating meals w/o issues. OBJECTIVE: Vital Signs Period Temp Pulse Resp BP Sys/Jang Pulse Ox Last 24 Hr 98 F-99.0 F 73-85 19-20 129-160/77-94 94-95 GENERAL: The patient is awake, alert. NAD. HEAD: Normal with no signs of trauma. EYES: sclera anicteric, conjunctiva clear. ENT: Ears normal, nares patent, oropharynx clear without exudates, moist mucous membranes. NECK: Trachea midline, full range of motion, supple. LUNGS: Breath sounds equal, clear to auscultation bilaterally, no wheezes, no crackles, no accessory muscle use. HEART: Regular rate and rhythm, S1, S2 without murmur, rub or gallop. ABDOMEN: Soft, nontender, nondistended, normoactive bowel sounds, no guarding, no rebound, no hepatosplenomegaly, no masses. EXTREMITIES: 2+ pulses, warm, well-perfused, no edema. NEUROLOGICAL: Normal speech Laboratory Results - last 24 hr 03/20/19 03/20/19 07:25 07:25 WBC 6.0 RBC 3.47 L Hgb 9.7 L Hct 29.8 L MCV 85.8 MCH 28.0 MCHC 32.6 RDW 19.7 H Plt Count 175 MPV 7.9 Sodium 142 Potassium 2.9 L* Chloride 103 Carbon Dioxide 32 Anion Gap 7 L BUN 7.0 Creatinine 0.6 Est GFR (CKD-EPI)AfAm 123.15 Est GFR (CKD-EPI)NonAf 106.25 Random Glucose 83 Calcium 7.7 L Phosphorus 3.5 Magnesium 1.4 L Total Bilirubin 1.1 H AST 33 ALT 21 Alkaline Phosphatase 105 Total Protein 5.7 L Albumin 2.7 L Active Medications Generic Name Dose Route Start Last Admin Trade Name Freq PRN Reason Stop Dose Admin Chlordiazepoxide HCl 10 mg 03/21/19 05:00 Librium - PO 03/21/19 23:01 [id number] CAREY Chlordiazepoxide HCl 10 mg 03/22/19 05:00 Librium - PO 03/22/19 17:01 Q12H CAREY Chlordiazepoxide HCl 10 mg 03/23/19 05:00 Librium - PO 03/23/19 05:01 ONCE@0500 ONE Chlordiazepoxide HCl 25 mg 03/20/19 05:00 03/20/19 17:03 Librium - PO 03/20/19 23:01 25 mg [id number] CAREY Administration Potassium Chloride/Sodium Chloride 20 meq in 1,000 mls @ 100 mls/hr 03/19/19 13:30 03/20/19 12:18 Ns+20 Meq Kcl - IV 100 mls/hr ASDIR CAREY Administration Lisinopril 20 mg 03/19/19 10:00 03/20/19 09:27 Prinivil PO 20 mg DAILY CAREY Administration Lorazepam 2 mg 03/19/19 06:30 Ativan Injection - IVPB Q4H PRN ANXIETY Metoprolol Tartrate 12.5 mg 03/19/19 10:00 03/20/19 09:25 Lopressor - PO 12.5 mg BID CAREY Administration Vital Signs Temp 98.1 F 03/20/19 18:00 Pulse 83 03/20/19 18:00 Resp 20 03/20/19 18:00 BP 160/94 03/20/19 18:00 Pulse Ox 94 L 03/20/19 09:00 Intake & Output 03/19/19 03/20/19 03/20/19 23:59 11:59 23:59 Intake Total 560 1320 Output Total 1100 2 400 Balance -540 1318 -400 Intake: IV 460 1320 NS with KCL 20 meq. @ 601 314 7077 /hr Protonix 40 mg 60 120 IVPB 100 Output: Urine 1100 2 400 Void 1100 2 400 Other: Voiding Method Urinal Urinal # Unmeasured Voids Void 1 Bowel Movement No Yes # Bowel Movements 3 ASSESSMENT/PLAN: Mr. De Leon is a 64y/o male with alcohol use disorder, mesothelioma, and HTN who presents for alcohol detox, right side rib/abdominal pain x 2 weeks, and 1 episode of hematemesis. #hematemesis, possibly Milena-Alexis tear vs alcohol-induced gastritis -monitor CBC -pantoprazole drip -- d/c -surgery consult- no indication for surgery at this time, possible tiny polyp in gallbladder, will sign off -GI consult --pt refuses EGD #transaminitits likely 2/2 chronic EtOH >RUQ U/S: fatty liver, distended GB w/ sludge and 4mm echogenic focus in GB neck -monitor #alcohol use disorder >CIWA 11 >UDS: +benzo -librium protocol -NS +K @ 100mL/hr -MV daily -thiamine daily -folic acid daily -VS Q4H #pAF -hold home ASA for now until resolution of GIB #QTc prolongation 501 -avoid QT prolonging agents #hypokalemia -replete PRN -recheck labs #hypertension Pt reports associated with alcohol withdrawal. Not on daily medication. -lisinopril 20mg daily FEN -NS +K @ 100mL/hr 100mL/hr -sodium-controlled diet DVT Ppx SCDs: do not give chemical anti-coag because of GI bleeding Visit type - Emergency Visit Emergency Visit: No - New Patient This patient is new to me today: No - Critical Care Critical Care patient: No ATTENDING PHYSICIAN STATEMENT I saw and evaluated the patient. I reviewed the resident's note and discussed the case with the resident. I agree with the resident's findings and plan as documented. SUBJECTIVE: OBJECTIVE: ASSESSMENT AND PLAN:
[2019-03-20 20:27] LABS: CALCIUM 7.8 mg/dL (8.5-10.1); CREATININE 0.7 mg/dL (0.55-1.3); POTASSIUM 3.4 mmol/L (3.5-5.1)
[2019-03-20] MEDS: chlordiazePOXIDE 5 MG CAPSULE PO SCH (22:00)
[2019-03-21] MEDS ORDERED: chlordiazePOXIDE HCL 10 MG CAPSULE PO PRN ×2
[2019-03-21] MEDS ORDERED: chlordiazePOXIDE HCL 10 MG CAPSULE PO SCH ×3 (05:00)
[2019-03-21] MEDS: chlordiazePOXIDE 5 MG CAPSULE PO SCH (06:02)
[2019-03-21] MEDS: METOPROLOL TARTRATE 25 MG TABLET (FP) PO SCH (10:30)
[2019-03-21] MEDS: SODIUM CHLORIDE 0.9%/KCL 20 MEQ/1,000 ML INFUS.BAG IV SCH (10:30)
[2019-03-21] MEDS: LISINOPRIL 10 MG TABLET (FP) PO SCH (10:30)
[2019-03-21 10:33] VITALS: BP 146/75; PULSE 87; TEMP 97.5
--- NOTE | 2019-03-21 11:27 | PN ---
Teaching Attending Note Name of Resident: Ilana Oh ATTENDING PHYSICIAN STATEMENT I saw and evaluated the patient. I reviewed the resident's note and discussed the case with the resident. I agree with the resident's findings and plan as documented. SUBJECTIVE:asymptomatic. denies Cp, SOB, fever, chills, N/v/C/D OBJECTIVE: Last Vital Signs Temp Pulse Resp BP Pulse Ox 97.5 F L 87 20 146/75 95 03/21/19 10:00 03/21/19 10:00 03/21/19 10:00 03/21/19 10:00 03/21/19 09:00 General NAD CV S1 S2 RRR Abdomen soft NT/ND obese extremiteis no tremors ASSESSMENT AND PLAN: 64yo M undomiciled with PMH continuous ETOH dependence, HTN, Dyslipidemia, AAA, PAF, s/P IVC filter who does not take any of his medications as instructed coming in with 1 episode of hemetemsis 1. hemetemsis- clinically stable. no repeat episodes. hgb stable. patient still refusing EGD. can defer at this time. 2. severe hypokalemia- refusing K riders and K po. improved. awaiting todays labs. on IVf wtih K 3. hypomagnesmia- awaiting todays labs 4. GB polyp- was evaluated by surgery for possible acute cholecystitis which is not likely at this time given as he is not having signs of infection and not RUQ pain. if this is polyp should be moniotred with outpatient u/s 5. ETOH withdrawal- CIWA 0. on librium protocol. no signs of withdrawal. will complete protocol tomorrow. wants to go to [facility] for inpatient rehab. will notify to see if beds available 6. HTN- controlled. cont current management 7. PAF- not on anticoagulation due to frequent falls and drinking.was recommended to be on asa which pt has not been taking and now coming in with GI bleed. will cont to hold asa 8. ETOH transaminitis- due to ETOH. stable for baseline. imaging showing fatty liver. counselled on ETOH abstinence 9. AAA- stable from previous 4.4cm 10. s/p IVC filter 11. DVT ppx- SCD. hold pharmacologic anticoagulation in setting of GI bleed 12. will complete librium protocol tomorrow. anticipate discharge tomorrow
--- NOTE | 2019-03-21 17:16 | DS ---
Physical Exam: SUBJECTIVE: Patient seen and examined. He reports continued right rib pain with radiation to the back. OBJECTIVE: Vital Signs Period Temp Pulse Resp BP Sys/Jang Pulse Ox Last 24 Hr 97.5 F-98.4 F 83-89 20-20 145-160/75-103 94-95 PHYSICAL EXAM GENERAL: Awake, alert, and fully oriented, in no acute distress. Disheveled. HEAD: Normal with no signs of trauma. EYES: Pupils equal, round and reactive to light, extraocular movements intact, sclera anicteric, conjunctiva clear. No lid lag. EARS, NOSE, THROAT: Ears normal, nares patent, moist mucous membranes. NECK: Normal range of motion, supple without lymphadenopathy, JVD, or masses. LUNGS: Breath sounds equal, clear to auscultation bilaterally. No wheezes, and no crackles. No accessory muscle use. HEART: Regular rate and rhythm, normal S1 and S2 without murmur, rub or gallop. ABDOMEN: Distended, RUQ and RLQ tender to palpation, no ecchymosis MUSCULOSKELETAL: Normal range of motion at all joints. No bony deformities or tenderness. UPPER EXTREMITIES: 2+ pulses, warm, well-perfused. No cyanosis. No clubbing. No peripheral edema. LOWER EXTREMITIES: 2+ pulses, warm, well-perfused. No calf tenderness. NEUROLOGICAL: Cranial nerves II-XII intact. Normal speech. Gait not observed. PSYCHIATRIC: Cooperative. Good eye contact. Appropriate mood and affect. SKIN: Warm, dry, normal turgor, no rashes or lesions noted, normal capillary refill. LABS Laboratory Results - last 24 hr 03/20/19 19:47 Sodium 140 Potassium 3.4 L Chloride 103 Carbon Dioxide 29 Anion Gap 8 BUN 7.0 Creatinine 0.7 Est GFR (CKD-EPI)AfAm 115.59 Est GFR (CKD-EPI)NonAf 99.73 Random Glucose 116 H Calcium 7.8 L HOSPITAL COURSE: Pt admitted for alcohol detox, right rib/abdominal pain, and hematemesis x 1. U/ S negative, xrays negative. EGD refused. Continued librium detox protocol. Pt left AMA. Date of Admission:03/18/19 Date of Discharge: 03/21/19 Minutes to complete discharge: 35 Discharge Summary Problems reviewed: Yes Reason For Visit: ALCOHOLIC INTOXICATION, ANOMALY OF GALLBLADDER Condition: Improved - Instructions Diet, Activity, Other Instructions: You were admitted to the hospital for alcohol withdrawal. You were found to have electrolyte imbalances as well. You were given medication to help with detox from alcohol and given supplements. You were improving but not ready for discharge. You left against medical advice and the risks of leaving early were explained to you. You could go back into withdrawal, have a seizure, fall, or could result from you not being adequately treated. Return to the ED if you have tremors, vomiting, chest pain, abdominal pain, seizure, or fall. Disposition: AGAINST MEDICAL ADVICE - Home Medications Comprehensive Discharge Medication List: Ambulatory Orders Unobtainable 03/17/19 This patient is new to me today: No Emergency Visit: Yes ED Registration Date: 03/18/19 Care time: The patient presented to the Emergency Department on the above date and was hospitalized for further evaluation of their emergent condition. Critical Care patient: No - Discharge Referral Referred to [facility] No ATTENDING PHYSICIAN STATEMENT I saw and evaluated the patient. I reviewed the resident's note and discussed the case with the resident. I agree with the resident's findings and plan as documented. SUBJECTIVE: OBJECTIVE: ASSESSMENT AND PLAN:
[2019-03-21] MEDS ORDERED: chlordiazePOXIDE 5 MG CAPSULE PO SCH (18:00)
[2019-03-22] MEDS ORDERED: chlordiazePOXIDE HCL 10 MG CAPSULE PO SCH ×2 (05:00)
[2019-03-22] MEDS ORDERED: chlordiazePOXIDE 5 MG CAPSULE PO SCH (05:00)
[2019-03-22] MEDS ORDERED: chlordiazePOXIDE 5 MG CAPSULE PO ONE (12:00)
[2019-03-23] MEDS ORDERED: chlordiazePOXIDE 5 MG CAPSULE PO ONE (05:00)
[2019-03-23] MEDS ORDERED: chlordiazePOXIDE HCL 10 MG CAPSULE PO ONE ×2 (05:00)
== END 2019-03-21 11:55 | disposition left against medical advice (07) | DRG 242 ==
LOC: JER 07:04 → JERBED 19:09 → J6S 22:17
PROVIDERS: ADMIT Internal Medicine; ATTEND Internal Medicine
DX: K22.6 Gastro-esophageal laceration-hemorrhage syndrome (principal); R10.11 Right upper quadrant pain; R10.13 Epigastric pain; I10 Essential (primary) hypertension; I71.4 Abdominal aortic aneurysm, without rupture; R07.81 Pleurodynia; E87.6 Hypokalemia; R74.0 Nonspecific elevation of levels of transaminase and lactic acid dehydrogenase [LDH]; F10.229 Alcohol dependence with intoxication, unspecified; K82.4 Cholesterolosis of gallbladder; I45.81 Long QT syndrome; I48.0 Paroxysmal atrial fibrillation; K29.20 Alcoholic gastritis without bleeding; K92.0 Hematemesis; K76.0 Fatty (change of) liver, not elsewhere classified; E83.42 Hypomagnesemia; F10.239 Alcohol dependence with withdrawal, unspecified; E78.5 Hyperlipidemia, unspecified; E66.9 Obesity, unspecified; Z68.35 Body mass index [BMI] 35.0-35.9, adult
CPT/HCPCS: 36415; 71045-TC-FY; 71260-TC; 74177-TC; 76705-TC; 80048; 80053; 80307; 82550; 83690; 83735; 84100; 84132; 84484; 85025; 85027; 85610; 85730; 86850; 86900; 86901; 93005; 93010; 99282-25; J7030; Q0162

== ENCOUNTER 2019-03-21 17:00 | Emergency (ER) | payer OTHER ==
--- NOTE | 2019-03-21 18:22 | PDOC ---
History of Present Illness - General Chief Complaint: Alcohol intoxication Stated Complaint: INTOX Time Seen by Provider: 03/21/19 18:05 - History of Present Illness Initial Comments: 03/21/19 18:16 This is a 64 year old male with PMH significant for mesothelioma, alcohol abuse , . He presents to the ER in a state of inebriation, with complaints of right sided intermittent sharp chest pain for the past several months (since his diagnosis of mesothelioma), last episode was this morning. He endorses mild headaches, and SOB that only occurs when he engages in intercourse. The pain radiates to his lower back, and there are no aggravating or alleviating factors. He has not had any trauma, and denies any fevers, chills, nausea, vomiting, diarrhea. Past History - Past Medical History Allergies/Adverse Reactions: Allergies Allergy/AdvReac Type Severity Reaction Status Date / Time Fish Containing Products Allergy Mild Swelling Verified 03/18/19 08:09 No Known Drug Allergies Allergy Verified 03/18/19 08:09 Home Medications: Ambulatory Orders Unobtainable 03/17/19 Anemia: No Asthma: No Cancer: Yes (mesothelioma lung cancer) Cardiac Disorders: No CVA: No COPD: No CHF: No DVT: No Dementia: No Diabetes: No Dialysis: No GI Disorders: No Disorders: No HTN: Yes (non compliance) Hypercholesterolemia: Yes Kidney Stones: No Liver Disease: Yes (ETOH abuse) Psychiatric Problems: Yes (ETOH abuse) Seizures: No Thyroid Disease: No Lung CA: Yes (Mesothelioma) - Surgical History Abdominal Surgery: No Appendectomy: No Cardiac Surgery: No Cholecystectomy: No Lung Surgery: No Neurologic Surgery: No Orthopedic Surgery: No - Reproductive History Testicular Surgery: No - Immunization History TDAP Vaccination: Yes Immunization Up to Date: Yes - Psycho Social/Smoking Cessation Hx Smoking Status: No Smoking History: Former smoker Have you smoked in the past 12 months: No Number of Cigarettes Smoked Daily: 0 If you are a former smoker, when did you quit?: 0 Cigars Per Day: 0 'Breaking Loose' booklet given: 09/22/17 Hx Alcohol Use: Yes Drug/Substance Use Hx: No Substance Use Type: Alcohol Hx Substance Use Treatment: Yes Review of Systems - Review of Systems Constitutional: Yes: See HPI HEENTM: Yes: See HPI Respiratory: Yes: See HPI Cardiac (ROS): Yes: See HPI ABD/GI: Yes: See HPI *Physical Exam - Physical Exam Comments: 03/21/19 18:23 General: AOx2, intoxicated, disheveled appearance, not in any acute pain CVS: RRR Lungs: Clear B/L GI: Soft, non tender, non distended, normoactive bowel sounds Extremities: No edema noted Neuro: Sensations intact, motor 5/5 B/L Medical Decision Making - Medical Decision Making 03/21/19 18:33 - Labwork done 3 days ago - Low suspicion of ACS, chronic pain on the right side in line with diagnosis of mesothelioma - Will monitor - Signed out to night team Discharge - Discharge Information Problems reviewed: Yes Clinical Impression/Diagnosis: Alcohol intoxication Condition: Guarded - Admission No - Follow up/Referral - Patient Discharge Instructions - Post Discharge Activity
--- NOTE | 2019-03-21 19:16 | PDOC ---
Medical Decision Making - Medical Decision Making 03/21/19 19:15 Sign out received. 64yo M hx mesothelioma, alcohol abuse presents intoxicated c/o chronic R-sided rib pain, recent image done, no new complaints or exam findings. EKG ordered. Pending clinical sobriety, reassess for dispo. Searched for pt. Unable to find pt. Nurse unable to find pt. Eloped. Discharge - Discharge Information Problems reviewed: Yes Clinical Impression/Diagnosis: Alcohol intoxication Condition: Guarded Disposition: ELOPED - Admission No - Follow up/Referral - Patient Discharge Instructions Patient Printed Discharge Instructions: DI for Alcohol Abuse - Post Discharge Activity
[2019-03-21 21:02] VITALS: BP 153/87; PULSE 84; TEMP 97.5; BMI 36.3
== END 2019-03-21 19:45 | disposition left against medical advice (07) ==
LOC: JER 17:00
DX: F10.220 Alcohol dependence with intoxication, uncomplicated (principal); I10 Essential (primary) hypertension; C45.9 Mesothelioma, unspecified; Z59.0 Homelessness; Z91.013 Allergy to seafood
CPT/HCPCS: 99282-25

== ENCOUNTER 2019-03-21 23:22 | Emergency (ER) | payer OTHER ==
[2019-03-21 23:43] VITALS: BP 141/75; PULSE 85; TEMP 97.9; BMI 35.9
[2019-03-22] MEDS ORDERED: IBUPROFEN 400 MG TABLET (FP) PO ONE ×2 (08:21→08:34)
[2019-03-22] MEDS ORDERED: IBUPROFEN 600 MG TABLET (FP) PO ONE (08:22)
--- NOTE | 2019-03-22 08:26 | PDOC ---
History of Present Illness - General History Source: Patient Exam Limitations: Clinical Condition - History of Present Illness Initial Comments: 03/22/19 08:22 Patient with past medical history of alcohol abuse with multiple ED visits daily with complaint of pain and was being seen overnight in this ED presented back with complaint of pain to right wrist and right knee which has been persistent for a week. Patient was sent for detox yesterday due to alcohol intoxication but patient eloped and patient back with complaint of pain. Denies recent fall. Patient had a complaint in previous visit which imaging done was negative. Is this a multiple visit Asthma Patient?: No <Yemi Reyes - Last Filed: 03/22/19 12:49> <Palmer Stone - Last Filed: 03/22/19 16:01> - General Chief Complaint: Pain, Acute Stated Complaint: KNEE PAIN Time Seen by Provider: 03/22/19 07:32 Past History - Past Medical History Anemia: No Asthma: No Cancer: Yes (mesothelioma lung cancer) Cardiac Disorders: No CVA: No COPD: No CHF: No DVT: No Dementia: No Diabetes: No Dialysis: No GI Disorders: No Disorders: No HTN: Yes (non compliance) Hypercholesterolemia: Yes Kidney Stones: No Liver Disease: Yes (ETOH abuse) Psychiatric Problems: Yes (ETOH abuse) Seizures: No Thyroid Disease: No Lung CA: Yes (Mesothelioma) - Surgical History Abdominal Surgery: No Appendectomy: No Cardiac Surgery: No Cholecystectomy: No Lung Surgery: No Neurologic Surgery: No Orthopedic Surgery: No - Reproductive History Testicular Surgery: No - Immunization History TDAP Vaccination: Yes Immunization Up to Date: Yes - Psycho Social/Smoking Cessation Hx Smoking Status: No Smoking History: Never smoked Have you smoked in the past 12 months: No Number of Cigarettes Smoked Daily: 0 If you are a former smoker, when did you quit?: 0 Cigars Per Day: 0 'Breaking Loose' booklet given: 09/22/17 Hx Alcohol Use: Yes Drug/Substance Use Hx: No Substance Use Type: Alcohol Hx Substance Use Treatment: Yes <Yemi Reyes - Last Filed: 03/22/19 12:49> <Palmer Stone - Last Filed: 03/22/19 16:01> - Past Medical History Allergies/Adverse Reactions: Allergies Allergy/AdvReac Type Severity Reaction Status Date / Time Fish Containing Products Allergy Mild Swelling Verified 03/18/19 08:09 No Known Drug Allergies Allergy Verified 03/18/19 08:09 Home Medications: Ambulatory Orders Unobtainable 03/17/19 Review of Systems - Review of Systems Able to Perform ROS?: Yes Is the patient limited Nigerien proficient: No Constitutional: No: Malaise, Weakness HEENTM: No: Symptoms Reported, See HPI, Eye Pain, Blurred Vision, Tearing, Recent change in vision, Double Vision, Cataracts, Ear Pain, Ocular Prothesis, Ear Discharge, Nose Pain, Nose Congestion, Tinnitus, Nose Bleeding, Hearing Loss , Throat Pain, Throat Swelling, Mouth Pain, Dental Problems, Difficulty Swallowing, Mouth Swelling, Other Respiratory: No: Symptoms reported, See HPI, Cough, Orthopnea, Shortness of Breath, SOB with Exertion, SOB at Rest, Stridor, Wheezing, Productive cough, Hemoptysis, Other Cardiac (ROS): No: Symptoms Reported, See HPI, Chest Pain, Edema, Irregular Heart Rate, Lightheadedness, Palpitations, Syncope, Chest Tightness, Other ABD/GI: No: Nausea, Vomiting Musculoskeletal: Yes: Symptoms Reported, See HPI, Joint Pain (right knee), Muscle Pain (right wrist, right knee) Integumentary: No: Symptoms Reported, Change in Color Neurological: No: Symptoms reported All Other Systems: Reviewed and Negative <Yemi Reyes - Last Filed: 03/22/19 12:49> *Physical Exam - Vital Signs Last Vital Signs Temp Pulse Resp BP Pulse Ox 97.9 F 85 17 141/75 97 03/21/19 23:22 03/21/19 23:22 03/21/19 23:22 03/21/19 23:22 03/21/19 23:22 - Physical Exam General Appearance: Yes: Nourished, Appropriately Dressed. No: Apparent Distress HEENT: positive: Normal ENT Inspection Respiratory/Chest: positive: Lungs Clear, Normal Breath Sounds. negative: Respiratory Distress, Accessory Muscle Use Cardiovascular: positive: Regular Rhythm, Regular Rate Musculoskeletal: positive: Normal Inspection Extremity: positive: Normal Capillary Refill, Normal Inspection Integumentary: positive: Normal Color Neurologic: positive: Fully Oriented, Alert, Normal Mood/Affect, Normal Response <Yemi Reyes - Last Filed: 03/22/19 12:49> - Vital Signs Last Vital Signs Temp Pulse Resp BP Pulse Ox 97.9 F 85 17 141/75 97 03/21/19 23:22 03/21/19 23:22 03/21/19 23:22 03/21/19 23:22 03/21/19 23:22 <Palmer Stone - Last Filed: 03/22/19 16:01> ED Treatment Course - Medications Given in the ED: ED Medications Discontinued Medications Generic Name Dose Route Start Last Admin Trade Name Francisco Javier ROMERO Reason Stop Dose Admin Ibuprofen 800 mg 03/22/19 08:21 03/22/19 08:42 Motrin - PO 03/22/19 08:22 800 mg ONCE ONE Administration <Palmer Stone - Last Filed: 03/22/19 16:01> Medical Decision Making - Medical Decision Making 03/22/19 08:23 Patient with past medical history of alcohol abuse with multiple ED visits daily with complaint of pain and was being seen overnight in this ED presented back with complaint of pain to right wrist and right knee which has been persistent for a week. Patient was sent for detox yesterday due to alcohol intoxication but patient eloped and patient back with complaint of pain. Denies recent fall. Patient had a complaint in previous visit which imaging done was negative Exam significant for no pain to wrist with mild subjective pain to right knee. Patient stable now from alcohol intoxication overnight. Motrin 600 mg p.o. ordered for pain. Reassess after 20 minutes 03/22/19 08:38 Patient requesting to go to detox but refused to go to [facility]. loft worker pile driving contacted 03/22/19 08:44 Patient walked out as waiting for social organization professor to discuss transferred to detox center as he does not want to go to detox center affiliated with this hospital <Yemi Reyes - Last Filed: 03/22/19 12:49> - Medical Decision Making 03/22/19 16:00 I reviewed the case of the mid-level practitioner and was available for consultation while in the emergency department <Palmer Stone - Last Filed: 03/22/19 16:01> Discharge - Discharge Information Problems reviewed: Yes - Admission No <Yemi Reyes - Last Filed: 03/22/19 12:49> <Palmer Stone - Last Filed: 03/22/19 16:01> - Discharge Information Clinical Impression/Diagnosis: Alcohol abuse, Right hand pain Alcohol dependence Qualifiers: Substance use status: with intoxication Complication of substance-induced condition: uncomplicated Qualified Code(s): F10.220 - Alcohol dependence with intoxication, uncomplicated Condition: Stable Disposition: HOME - Patient Discharge Instructions Additional Instructions: Take Motrin as needed for pain. Follow-up in detox today for alcohol detox as discussed.
== END 2019-03-22 08:49 | disposition home or self-care (01) ==
LOC: JER 23:22
DX: F10.220 Alcohol dependence with intoxication, uncomplicated (principal); I10 Essential (primary) hypertension; C45.9 Mesothelioma, unspecified; Z59.0 Homelessness; Z91.013 Allergy to seafood
CPT/HCPCS: 99282-25

== ENCOUNTER 2019-03-27 17:56 | Emergency (ER) | payer OTHER ==
--- NOTE | 2019-03-27 18:02 | PDOC ---
History of Present Illness - General Chief Complaint: Alcohol intoxication Stated Complaint: INTOX Time Seen by Provider: 03/27/19 18:02 History Source: Patient Exam Limitations: Intoxication - History of Present Illness Initial Comments: Sunil De Leon is a 64 yo M w a hx of chronic alcohol abuse, HTN, HLD, NIDDM BIBA to ED for ETOH intoxication. When I went to examine the patient he is fast asleep at bedside. He is arousable to noxious stimuli and requests to be left alone. He states he is not currently experiencing any pain but admits that he drank alcohol today. Patient denies having any fevers, chills, shortness of breath, or chest pain. Past History - Past Medical History Allergies/Adverse Reactions: Allergies Allergy/AdvReac Type Severity Reaction Status Date / Time Fish Containing Products Allergy Mild Swelling Verified 03/18/19 08:09 No Known Drug Allergies Allergy Verified 03/18/19 08:09 Home Medications: Ambulatory Orders Unobtainable 03/17/19 Anemia: No Asthma: No Cancer: Yes (mesothelioma lung cancer) Cardiac Disorders: No CVA: No COPD: No CHF: No DVT: No Dementia: No Diabetes: No Dialysis: No GI Disorders: No Disorders: No HTN: Yes (non compliance) Hypercholesterolemia: Yes Kidney Stones: No Liver Disease: Yes (ETOH abuse) Psychiatric Problems: Yes (ETOH abuse) Seizures: No Thyroid Disease: No Lung CA: Yes (Mesothelioma) - Surgical History Abdominal Surgery: No Appendectomy: No Cardiac Surgery: No Cholecystectomy: No Lung Surgery: No Neurologic Surgery: No Orthopedic Surgery: No - Reproductive History Testicular Surgery: No - Immunization History TDAP Vaccination: Yes Immunization Up to Date: Yes - Psycho Social/Smoking Cessation Hx Smoking Status: No Smoking History: Never smoked Have you smoked in the past 12 months: No Number of Cigarettes Smoked Daily: 0 If you are a former smoker, when did you quit?: 0 Cigars Per Day: 0 'Breaking Loose' booklet given: 09/22/17 Hx Alcohol Use: Yes Drug/Substance Use Hx: No Substance Use Type: Alcohol Hx Substance Use Treatment: Yes Review of Systems - Review of Systems Able to Perform ROS?: No (Intoxicated) *Physical Exam - Physical Exam General Appearance: Yes: Disheveled, Alcohol on Breath, Intoxicated, Obese. No : Appropriately Dressed, Apparent Distress HEENT: positive: Scleral Icterus (R), Scleral Icterus (L) Neck: positive: Supple Respiratory/Chest: positive: Lungs Clear, Normal Breath Sounds Cardiovascular: positive: Regular Rhythm, Regular Rate Vascular Pulses: Dorsalis-Pedis (R): 2+, Doralis-Pedis (L): 2+ Gastrointestinal/Abdominal: positive: Soft, Protuberent, Distended Rectal Exam: positive: deferred Musculoskeletal: positive: Normal Inspection, Decreased Range of Motion Extremity: positive: Normal Capillary Refill, Pelvis Stable Integumentary: positive: Normal Color, Jaundice Neurologic: positive: Respond to painful stimul, Disoriented Medical Decision Making - Medical Decision Making Sunil De Leon is a 64 yo M w a hx of chronic alcohol abuse, HTN, HLD, NIDDM BIBA to ED for ETOH intoxication. When I went to examine the patient he is fast asleep at bedside. He is arousable to noxious stimuli and requests to be left alone. He states he is not currently experiencing any pain but admits that he drank alcohol today. Patient denies having any fevers, chills, shortness of breath, or chest pain. Vital Signs Temp Pulse Resp BP Pulse Ox 97.9 F 90 20 124/79 93 L 03/27/19 18:01 03/27/19 18:01 03/27/19 18:01 03/27/19 18:01 03/27/19 18:01 MDM: Patient is well known to this ED and requests to be left alone. He states he is homeless and would like to rest peacefully in the ED. Plan: Metabolize to clinical sobriety, re-assess. Disposition: Home when clinically sober Discharge - Discharge Information Problems reviewed: Yes Clinical Impression/Diagnosis: Alcohol intoxication Qualifiers: Complication of substance-induced condition: with unspecified complication Qualified Code(s): F10.929 - Alcohol use, unspecified with intoxication, unspecified Condition: Stable Disposition: HOME - Admission No - Follow up/Referral Referrals: [facility] [place] [Provider Group] - Patient Discharge Instructions Patient Printed Discharge Instructions: DI for Alcohol Abuse - Post Discharge Activity
[2019-03-27 18:03] VITALS: BP 124/79; PULSE 90; TEMP 97.9; BMI 33.0
--- NOTE | 2019-03-27 21:32 | PDOC ---
Attending Attestation - Resident Resident Name: Stevenson Jiang - ED Attending Attestation I have performed the following: I have examined & evaluated the patient, The case was reviewed & discussed with the resident, I agree w/resident's findings & plan, Exceptions are as noted - HPI HPI: 03/27/19 21:31 64 M with h/o chronic alcohol abuse, HTN, HLD, NIDDM, presenting for ETOH intoxication. Pt denies any trauma or injuries. States he drank ETOH today. Denies coingestions. Denies SI/HI/AVH. - Physicial Exam PE: 03/27/19 21:31 GENERAL: Awake, alert, and fully oriented, in no acute distress. HEAD: No signs of trauma EYES: PERRLA, EOMI, sclera anicteric, conjunctiva clear ENT: Auricles normal inspection, hearing grossly normal, nares patent, oropharynx clear without exudates. Moist mucosa NECK: Nontender, no stepoffs, Normal ROM, supple, no lymphadenopathy, JVD, or masses LUNGS: Breath sounds equal, clear to auscultation bilaterally. No wheezes, and no crackles HEART: Regular rate and rhythm, normal S1 and S2, no murmurs, rubs or gallops ABDOMEN: Soft, nontender, normoactive bowel sounds. No guarding, no rebound. No masses EXTREMITIES: Normal range of motion, no edema. No clubbing or cyanosis. No cords, erythema, or tenderness NEUROLOGICAL: Cranial nerves II through XII intact. 5/5 strength and sensation in all extremities, Normal speech, normal gait, normal cerebellar function SKIN: Warm, Dry, normal turgor, no rashes or lesions noted. - Medical Decision Making 03/27/19 21:32 64 M with ETOH intoxication. No s/s traumatic injury on exam. - Reassess when sober 03/27/19 22:38 Pt now awake, clinically sober AMbulating in ED with steady gait Denies any complaints. No SI/HI/AVH Repeat O2 sat 97% on RA. Pt is well appearing, with normal vitals. Clinically stable for DC at this time. I discussed the physical exam findings, ancillary test results and final diagnoses with the patient. I answered all of the patient's questions. The patient was satisfied with the care received and felt comfortable with the discharge plan and treatment plan. The patient agrees to follow up with the primary care physician within 24-72 hours.
== END 2019-03-28 01:09 | disposition home or self-care (01) ==
LOC: JER 17:56
DX: F10.220 Alcohol dependence with intoxication, uncomplicated (principal); I10 Essential (primary) hypertension; C45.9 Mesothelioma, unspecified; E78.5 Hyperlipidemia, unspecified; E11.9 Type 2 diabetes mellitus without complications; Z59.0 Homelessness; Z91.14 Patient's other noncompliance with medication regimen; Z91.013 Allergy to seafood
CPT/HCPCS: 99282-25

== ENCOUNTER 2019-03-29 17:58 | Emergency (ER) | payer OTHER ==
--- NOTE | 2019-03-29 18:15 | PDOC ---
Rapid Medical Evaluation Time Seen by Provider: 03/29/19 18:13 Medical Evaluation: Allergies Allergy/AdvReac Type Severity Reaction Status Date / Time Fish Containing Products Allergy Mild Swelling Verified 03/18/19 08:09 No Known Drug Allergies Allergy Verified 03/18/19 08:09 03/29/19 18:14 Pt c/o: chronic back pain, no meds taken Pt on brief exam: + intoxicated, refusing vitals Pt ordered for: none Pt to proceed to ED Discharge Disposition - Diagnosis Alcohol intoxication Back pain Qualifiers: Back pain location: low back pain Chronicity: chronic Back pain laterality: bilateral Sciatica presence: unspecified whether sciatica present Qualified Code (s): M54.5 - Low back pain - Discharge Dispostion Disposition: HOME Condition at time of disposition: Stable - Referrals - Patient Instructions Additional Instructions: You were seen in the ER for alcohol intoxication. After our assessment, we do not believe there is a medical emergency at this time, and we believe it is safe to go home. Please follow up with your regular doctor in 1-3 days. Call their clinic as soon as possible, tell them you were seen in the ER, and tell them you need an appointment. If there are any new or worsening symptoms, please come back to the ER at any time (24 hours a day). If the symptoms appear severe or life-threatening, please call 911 to have an ambulance take you to the ER. - Post Discharge Activity
[2019-03-29 18:20] VITALS: BMI 35.9
--- NOTE | 2019-03-29 23:27 | PDOC ---
Attending Attestation - Resident Resident Name: Anabell Dover - ED Attending Attestation I have performed the following: I have examined & evaluated the patient, The case was reviewed & discussed with the resident, I agree w/resident's findings & plan - HPI HPI: 03/30/19 02:25 see resident hpi - Physicial Exam PE: 03/30/19 02:25 agree with resident exam - Medical Decision Making 03/30/19 02:25 64-year-old male with alcohol intoxication Patient sleeping comfortably and easily arousable Plan for DC when clinically sober and daylight hours.
--- NOTE | 2019-03-29 23:37 | PDOC ---
History of Present Illness - General Chief Complaint: Alcohol intoxication Stated Complaint: INTOX Time Seen by Provider: 03/29/19 18:13 History Source: Patient Exam Limitations: Intoxication - History of Present Illness Initial Comments: 03/30/19 06:35 64YOM with h/o EtOH use disorder, chronic back pain, CHF, CAD, and mesothelioma who is well known to our ED and who p/w EtOH intoxication and baseline chronic back pain. He was BIBEMS with apparent EtOH intoxication. His initial history is limited d/t intoxication but he notes back pain similar to every day. Denies any additional pain at this time, denies CP, AP, SOB, palpitations, n/v/d/c, new leg swelling, LOC, trauma, etc. Past History - Past Medical History Allergies/Adverse Reactions: Allergies Allergy/AdvReac Type Severity Reaction Status Date / Time Fish Containing Products Allergy Mild Swelling Verified 03/29/19 18:14 No Known Drug Allergies Allergy Verified 03/29/19 18:14 Home Medications: Ambulatory Orders Unobtainable 03/17/19 Anemia: No Asthma: No Cancer: Yes (mesothelioma lung cancer) Cardiac Disorders: No CVA: No COPD: No CHF: No DVT: No Dementia: No Diabetes: No Dialysis: No GI Disorders: No Disorders: No HTN: Yes (non compliance) Hypercholesterolemia: Yes Kidney Stones: No Liver Disease: Yes (ETOH abuse) Psychiatric Problems: Yes (ETOH abuse) Seizures: No Thyroid Disease: No Lung CA: Yes (Mesothelioma) - Surgical History Abdominal Surgery: No Appendectomy: No Cardiac Surgery: No Cholecystectomy: No Lung Surgery: No Neurologic Surgery: No Orthopedic Surgery: No - Reproductive History Testicular Surgery: No - Immunization History TDAP Vaccination: Yes Immunization Up to Date: Yes - Psycho Social/Smoking Cessation Hx Smoking Status: No Smoking History: Current some day smoker Have you smoked in the past 12 months: No Number of Cigarettes Smoked Daily: 0 If you are a former smoker, when did you quit?: 0 Cigars Per Day: 0 Information on smoking cessation initiated: No 'Breaking Loose' booklet given: 09/22/17 Hx Alcohol Use: Yes Drug/Substance Use Hx: Yes Substance Use Type: Alcohol Hx Substance Use Treatment: Yes Review of Systems - Review of Systems Able to Perform ROS?: Yes Comments:: 03/29/19 23:05 GEN: no fever, chills, or weakness HEENT: no congestion, sore throat, nosebleeds, or vision change CV: edema, no chest pain, or syncope RESP: no cough, wheezing, or SOB GI: no abdominal pain, no white/black/bloody stool : no dysuria, urine retention, or bleeding MSK: back pain per chronic baseline, but no new muscle pain, joint pain or swelling NEURO: no headache, seizure, vertigo, difficulty walking/talking PSYCH: alcohol use, no behavior change, SI, or HI SKIN: no rashes, jaundice, or unexplained bruises ROS otherwise negative except as noted in HPI *Physical Exam - Vital Signs Last Vital Signs Temp Pulse Resp BP Pulse Ox 107 H 18 97/59 L 94 L 03/29/19 22:09 03/29/19 22:09 03/29/19 22:09 03/29/19 22:09 - Physical Exam Comments: 03/29/19 23:00 GENERAL: odor of alcohol is present, appears intoxicated, disheveled, unkempt, malodorous, initially sleeping with nasal cannula on and appears comfortable, answers simple questions, slurred speech HEENT: PERRLA, EOMI, moist mucous membranes, no e/o facial trauma NECK/BACK: no spinal stepoff or deformity, no hematoma, neck supple, diffuse lumbar paraspinous tenderness without midline tenderness CARDIOVASCULAR: regular rate/rhythm, normal S1S2, no MGR, capillary refill <2 seconds, extremities wwp, 2+ pitting edema BLE LUNGS/RESPIRATORY: nonlabored respirations, lungs CTAB GI/ABDOMEN: protuberant, symmetric [id number], normoactive BS, soft, no midline pulsatile masses, no organomegaly EXTREMITIES:no muscle atrophy, no acute deformity, BLE as noted above SKIN: warm and dry, no pallor, no jaundice, no rash, old bruises but nothing acute, no skin breakdown, no cuts NEUROLOGICAL: CN II-XII grossly intact, no obvious facial droop, moving all four extremities, no tongue fasciculations, no tremor, no nystagmus, gait not tested at this time 2/2 risk of fall Medical Decision Making - Medical Decision Making 03/29/19 23:52 64YOM with h/o heavy alcohol use, CAD, CHF, and mesothelioma, p/w intoxication and unchanged chronic low back pain. Mr. De Leon refused temperature, SpO2, and BP on arrival and is still refusing during my initial exam and also at this time (11:55pm). However pulses are palpable, HR is in the 70s at rest, RR is 20. Exam: As noted in Physical Exam section. DDX IBNLT: most likely this is simple intoxication with baseline chronic musculoskeletal back pain. Less likely withdrawal (w/wo seizures), DT, hepatic encephalopathy, ICH, UGIB, LGIB, SBP, metabolic derangement, coingestion, trauma , etc. W/U ordered: None at this time 03/30/19 06:30 Mr. De Leon is no longer intoxicated, is walking unassisted, went to bathroom and urinated. This patient is appropriate for discharge with close outpatient follow up. They are comfortable with this plan and will follow up with their PCP in 1-3 days. Specific return precautions are discussed and they will come back to the ER if necessary. Vital Signs Temperature Pulse Rate 100 H 03/30/19 01:00 Respiratory Rate 20 03/30/19 01:00 Blood Pressure 112/63 03/30/19 01:00 O2 Sat by Pulse Oximetry (%) 94 L 03/29/19 22:09 Discharge - Discharge Information Problems reviewed: Yes Clinical Impression/Diagnosis: Back pain Qualifiers: Back pain location: low back pain Chronicity: chronic Back pain laterality: bilateral Sciatica presence: unspecified whether sciatica present Qualified Code (s): M54.5 - Low back pain Alcohol intoxication Qualifiers: Complication of substance-induced condition: with unspecified complication Qualified Code(s): F10.929 - Alcohol use, unspecified with intoxication, unspecified Condition: Stable Disposition: HOME - Admission No - Follow up/Referral - Patient Discharge Instructions Additional Instructions: You were seen in the ER for alcohol intoxication. After our assessment, we do not believe there is a medical emergency at this time, and we believe it is safe to go home. Please follow up with your regular doctor in 1-3 days. Call their clinic as soon as possible, tell them you were seen in the ER, and tell them you need an appointment. If there are any new or worsening symptoms, please come back to the ER at any time (24 hours a day). If the symptoms appear severe or life-threatening, please call 911 to have an ambulance take you to the ER. - Post Discharge Activity
[2019-03-30 01:01] VITALS: BP 112/63; PULSE 100
== END 2019-03-30 06:30 | disposition home or self-care (01) ==
LOC: JER 17:58
DX: F10.220 Alcohol dependence with intoxication, uncomplicated (principal); I25.10 Atherosclerotic heart disease of native coronary artery without angina pectoris; I11.0 Hypertensive heart disease with heart failure; I50.9 Heart failure, unspecified; M54.9 Dorsalgia, unspecified; C45.9 Mesothelioma, unspecified; Z59.0 Homelessness; Z91.14 Patient's other noncompliance with medication regimen
CPT/HCPCS: 99283-25

== ENCOUNTER 2019-04-12 18:03 | Observation (INO) | payer OTHER ==
[2019-04-12 18:29] VITALS: BMI 33.7
--- NOTE | 2019-04-12 19:39 | PDOC ---
Attending Attestation - Resident Resident Name: Ashish Mosherson - ED Attending Attestation I have performed the following: I have examined & evaluated the patient, The case was reviewed & discussed with the resident, I agree w/resident's findings & plan - HPI HPI: 04/13/19 00:18 see resident hpi - Physicial Exam PE: 04/13/19 00:18 agree with resident exam - Medical Decision Making 04/13/19 00:18 64-year-old male well-known to this department with public intoxication Plan for CT head secondary to questionable history of fall Otherwise will hold until clinically sober and safe for discharge Patient currently denying complaints
--- NOTE | 2019-04-12 20:32 | PDOC ---
History of Present Illness - General Chief Complaint: Alcohol intoxication Stated Complaint: INTOX Time Seen by Provider: 04/12/19 19:34 - History of Present Illness Initial Comments: 04/12/19 20:21 64 yo M with multiple medical comorbidities, Etoh dependence, homelessness who p /w Etoh intoxication. Patient found outside on ground intoxicated. Patient known to [facility] ED. Denies complaints, falls, LOC. Denies GARCIA, vision change, palpitations, cough, wheezing, orthopena, PND, leg swelling/pain, N/V, F,C, CP, SOB, urinary complaints, hematuria, BPR, abdominal pain, diarrhea, constipation , lightheadedness, weakness, tremors, sensory changes. Endorses multiple alcoholic beverages today. Past History - Past Medical History Allergies/Adverse Reactions: Allergies Allergy/AdvReac Type Severity Reaction Status Date / Time Fish Containing Products Allergy Mild Swelling Verified 04/12/19 18:29 No Known Drug Allergies Allergy Verified 04/12/19 18:29 Home Medications: Ambulatory Orders NK [No Known Home Medication] 04/12/19 Anemia: No Asthma: No Cancer: Yes (mesothelioma lung cancer) Cardiac Disorders: No CVA: No COPD: No CHF: No DVT: No Dementia: No Diabetes: No Dialysis: No GI Disorders: No Disorders: No HTN: Yes (non compliance) Hypercholesterolemia: Yes Kidney Stones: No Liver Disease: Yes (ETOH abuse) Psychiatric Problems: Yes (ETOH abuse) Seizures: No Thyroid Disease: No Lung CA: Yes (Mesothelioma) - Surgical History Abdominal Surgery: No Appendectomy: No Cardiac Surgery: No Cholecystectomy: No Lung Surgery: No Neurologic Surgery: No Orthopedic Surgery: No - Reproductive History Testicular Surgery: No - Immunization History TDAP Vaccination: Yes Immunization Up to Date: Yes - Psycho Social/Smoking Cessation Hx Smoking Status: No Smoking History: Never smoked Have you smoked in the past 12 months: No Number of Cigarettes Smoked Daily: 0 If you are a former smoker, when did you quit?: 0 Cigars Per Day: 0 'Breaking Loose' booklet given: 09/22/17 Hx Alcohol Use: Yes (h/o alcohol abuse) Drug/Substance Use Hx: No Substance Use Type: Alcohol Hx Substance Use Treatment: Yes Review of Systems - Review of Systems Comments:: 04/12/19 20:23 GENERAL/CONSTITUTIONAL: No fever or chills. No weakness. HEAD, EYES, EARS, NOSE AND THROAT: No change in vision. No ear pain or discharge. No sore throat. CARDIOVASCULAR: No chest pain or shortness of breath RESPIRATORY: No cough, wheezing, or hemoptysis. GASTROINTESTINAL: No nausea, vomiting, diarrhea or constipation. GENITOURINARY: No dysuria, frequency, or change in urination. MUSCULOSKELETAL: No joint or muscle swelling or pain. No neck or back pain. SKIN: No rash NEUROLOGIC: No headache, vertigo, loss of consciousness, or change in strength/ sensation. ENDOCRINE: No increased thirst. No abnormal weight change HEMATOLOGIC/LYMPHATIC: No anemia, easy bleeding, or history of blood clots. ALLERGIC/IMMUNOLOGIC: No hives or skin allergy. *Physical Exam - Vital Signs Last Vital Signs Temp Pulse Resp BP Pulse Ox 97.3 F L 89 18 120/62 96 04/12/19 18:22 04/12/19 18:22 04/12/19 18:22 04/12/19 18:22 04/12/19 18:22 - Physical Exam Comments: 04/12/19 20:24 GENERAL: Awake, alert, oriented, in no acute distress HEAD: No signs of trauma, normocephalic, atraumatic EYES: PERRLA, EOMI, sclera anicteric, conjunctiva clear ENT: Auricles normal inspection, hearing grossly normal, nares patent, oropharynx clear without exudates. Moist mucosa NECK: Normal ROM, supple, no lymphadenopathy, JVD, or masses LUNGS: No distress, speaks full sentences, clear to auscultation bilaterally HEART: Regular rate and rhythm, normal S1 and S2, no murmurs, rubs or gallops, peripheral pulses normal and equal bilaterally. ABDOMEN: Soft, nontender, normoactive bowel sounds. No guarding, no rebound. No masses EXTREMITIES : Normal inspection, Normal range of motion, no edema. No clubbing or cyanosis NEUROLOGICAL: Cranial nerves II through XII grossly intact. Normal speech, normal gait, no focal sensorimotor deficits SKIN: Warm, Dry, normal turgor, no rashes or lesions noted ED Treatment Course - RADIOLOGY Radiograph Interpretation: 04/13/19 03:56 Patient Information: : 1955 Order Type: Preliminary Name: CHARLIE MANUEL Sex: M Study Description: CT HEAD Modality: CT Location: [facility] Referring Physician: NORY PANCHAL Comments: Krishna Simon MD wrote on Apr 13, 2019 at 02:29 AM: Referring Physician: NORY PANCHAL Patient Name: MANUEL GUERRA THIS IS A PRELIMINARY REPORT FROM [facility] DATE OF SERVICE: 2019-04-13 00:52:20 IMAGES: 178 EXAM: HEAD CT WITHOUT CONTRAST HISTORY: Fall. COMPARISON: Reports only of prior CT scans of 07/23/2018 and 03/09/2019. No images provided. FINDINGS: Age-related intracranial volume loss. No midline shift. No acute intracranial hemorrhage. Mild chronic microangiopathic ischemic changes in the white matter. Intracranial atherosclerosis. Intact osseous calvarium. Mild frontal scalp soft tissue swelling. Old bilateral nasal bone fractures. Unremarkable intraorbital structures. Stable mild fluid in the inferior left mastoid. Clear right mastoid and bilateral middle ear cavities. CONFIDENTIALITY NOTICE: This information is intended only for the use of the recipient(s) named above. If you are not the intended recipient, or a person responsible for delivering it to the intended recipient, you are hereby notified that any disclosure, copying, distribution or use of any of the information contained in or attached to this transmission is STRICTLY PROHIBITED. If you have received this transmission in error, please immediately notify Imaging Development Specialist and destroy the original transmission and its attachments without saving them in any manner [address] [facility] [address] [place] [address] Phone: [phone] ([phone]) Fax: Email: [email or web address] Patient Information: : 1955 Order Type: Preliminary Name: CHARLIE JACKSON Sex: M Study Description: CT HEAD Modality: CT Location: [facility] Referring Physician: NORY PANCHAL Mucus retention cyst in bilateral maxillary sinuses. IMPRESSION: 1. No acute traumatic intracranial or osseous abnormality. 2. Mild frontal scalp soft tissue swelling. 3. Mild fluid in the inferior left mastoid. One or more of the following dose reduction techniques were used: automated exposure control, adjustment of the mA and/or kV according to patient size, use of iterative reconstructive technique. THIS DOCUMENT HAS BEEN ELECTRONICALLY SIGNED Krishna Simon MD 04/13/2019 02:28 MO MDonnie. Please call Imaging Development Specialist [phone]) with questions. Krishna Simon MD Clinicians - Please contact Imaging Development Specialist with further questions at [phone]) Patients - Please contact your Ordering Provider with questions. Medical Decision Making - Medical Decision Making 04/12/19 20:25 64 yo M with multiple medical comorbidities, Etoh dependence, homelessness who p /w Etoh intoxication. Vitals wnl, AF, Alert, oriented. No evidence closed head injury. Patient endorses multiple alcoholic beverages today. Patient with slurred speech. Absent evidence of Etoh withdrawal. Absent convulsions, tremors , hallucinations. Patient non tremulous, absent tongue fasciculation. Patient pending sobriety. Will reassess Ed Course: 04/13/19 03:56 CTH: Unremarkable 04/13/19 06:22 Pt. clinically sober. Stable for d/c with return precautions. Discharge - Discharge Information Problems reviewed: Yes Clinical Impression/Diagnosis: Alcohol abuse - Follow up/Referral - Patient Discharge Instructions Patient Printed Discharge Instructions: DI for Alcohol Abuse Additional Instructions: Please return to the emergency department with any new or worsening symptoms or concerns. Please follow up with your primary care physician within 72 hours. - Post Discharge Activity
[2019-04-13] MEDS ORDERED: chlordiazePOXIDE HCL 25 MG CAPSULE PO ONE (08:40)
[2019-04-13] MEDS ORDERED: chlordiazePOXIDE HCL 25 MG CAPSULE ONE (08:50)
[2019-04-13 09:36] LABS: HEMATOCRIT 32.4 % (35.4-49); HEMOGLOBIN 10.3 GM/dL (11.7-16.9); LYMPH % 28.3 % (8-40); MCH 26.7 pg (25.7-33.7); MCHC 31.7 g/dl (32.0-35.9); MEAN CELL VOLUME 84.3 fl (80-96); MEAN PLT VOLUME 8.1 fl (7.5-11.1); MONO % 4.8 % (3.8-10.2); NEUT % 62.9 % (42.8-82.8); PLATELET COUNT 226 K/MM3 (134-434); RBC 3.84 M/mm3 (4.00-5.60); WHITE BLOOD COUNT 5.4 K/mm3 (4.0-10.0)
[2019-04-13 10:09] LABS: ALK PHOS 134 U/L (45-117); ANION GAP 9 MMOL/L (8-16); BILIRUBIN,TOTAL 0.6 mg/dL (0.2-1); BLOOD UREA NITROGEN 5.8 mg/dL (7-18); CALCIUM 7.8 mg/dL (8.5-10.1); CHLORIDE 107 mmol/L (98-107); CO2 29 mmol/L (21-32); CREATININE 0.6 mg/dL (0.55-1.3); GLUCOSE,RANDOM 82 mg/dL (74-106); MAGNESIUM 1.3 mg/dL (1.8-2.4); POTASSIUM 3.3 mmol/L (3.5-5.1); SGOT/AST 42 U/L (15-37); SGPT/ALT 21 U/L (13-61); SODIUM 145 mmol/L (136-145); TOT PROT 6.4 g/dl (6.4-8.2)
[2019-04-13] MEDS ORDERED: MAGNESIUM SULF 50% (8.12 MEQ/2 ML-1 GM VIAL) IVPB ONE (11:26)
[2019-04-13] MEDS ORDERED: MAGNESIUM 1GM/D5W - 1 GM/100 ML IVPB IVPB ONE (11:40)
[2019-04-13] MEDS: KCL 10 MEQ IVPB 10 MEQ/100 ML INFUS.BAG IVPB SCH ×3 (11:40→13:37)
--- NOTE | 2019-04-13 12:09 | EKG ---
Test Reason : Blood Pressure : / mmHG Vent. Rate : 090 BPM Atrial Rate : 090 BPM P-R Int : 180 ms QRS Dur : 096 ms QT Int : 398 ms P-R-T Axes : 035 -21 063 degrees QTc Int : 486 ms NORMAL SINUS RHYTHM NONSPECIFIC ST ABNORMALITY PROLONGED QT ABNORMAL ECG WHEN COMPARED WITH ECG OF 18-MAR-2019 08:30, NO SIGNIFICANT CHANGE WAS FOUND Confirmed by YONATAN CHAKRABORTY MD ([id number]) on 04/13/2019 12:09:06 PM Referred By: Confirmed By:YONATAN CHAKRABORTY MD
--- NOTE | 2019-04-13 13:24 | PN ---
Teaching Attending Note Name of Resident: Kanwal Whitlock ATTENDING PHYSICIAN STATEMENT I saw and evaluated the patient. I reviewed the resident's note and discussed the case with the resident. I agree with the resident's findings and plan as documented. SUBJECTIVE: Chest pain OBJECTIVE: Last Vital Signs Temp Pulse Resp BP Pulse Ox 97.5 F L 92 H 20 126/65 98 04/13/19 07:34 04/13/19 07:34 04/13/19 07:34 04/13/19 07:34 04/13/19 07:34 Middle-aged disheveled , comfortable, not in distress HEENT; no external trauma mucous membranes moist, no anemia, Neck: No JVD, supple, no bruit, thyroid palpably normal, normal carotid pulsations. Chest: Tender sternum and left precordium on palpation, clear to auscultation bilaterally CVS: S1-S2 regular/irregular no murmur/gallop/rub ABD: Non-distended, soft, bowel sounds present. EXT: Bilateral edema feet , No cough tenderness, pulses present PARTITION ASSEMBLER: Fine tremor AO X3 , no gross motor sensory deficit CBC,CMP WBC 5.4 K/mm3 (4.0-10.0) 04/13/19 09:18 RBC 3.84 M/mm3 (4.00-5.60) L 04/13/19 09:18 Hgb 10.3 GM/dL (11.7-16.9) L 04/13/19 09:18 Hct 32.4 % (35.4-49) L 04/13/19 09:18 MCV 84.3 fl (80-96) 04/13/19 09:18 MCH 26.7 pg (25.7-33.7) 04/13/19 09:18 MCHC 31.7 g/dl (32.0-35.9) L 04/13/19 09:18 RDW 19.0 % (11.9-15.9) H 04/13/19 09:18 Plt Count 226 K/MM3 (134-434) D 04/13/19 09:18 MPV 8.1 fl (7.5-11.1) 04/13/19 09:18 Absolute Neuts (auto) 3.4 K/mm3 (1.5-8.0) 04/13/19 09:18 Neutrophils % 62.9 % (42.8-82.8) 04/13/19 09:18 Lymphocytes % 28.3 % (8-40) D 04/13/19 09:18 Monocytes % 4.8 % (3.8-10.2) 04/13/19 09:18 Eosinophils % 3.0 % (0-4.5) D 04/13/19 09:18 Basophils % 1.0 % (0-2.0) 04/13/19 09:18 Nucleated RBC % 0 % (0-0) 04/13/19 09:18 Sodium 145 mmol/L (136-145) 04/13/19 09:18 Potassium 3.3 mmol/L (3.5-5.1) L 04/13/19 09:18 Chloride 107 mmol/L (98-107) 04/13/19 09:18 Carbon Dioxide 29 mmol/L (21-32) 04/13/19 09:18 Anion Gap 9 MMOL/L (8-16) 04/13/19 09:18 BUN 5.8 mg/dL (7-18) L 04/13/19 09:18 Creatinine 0.6 mg/dL (0.55-1.3) 04/13/19 09:18 Est GFR (CKD-EPI)AfAm 123.15 04/13/19 09:18 Est GFR (CKD-EPI)NonAf 106.25 04/13/19 09:18 Random Glucose 82 mg/dL (74-106) 04/13/19 09:18 Calcium 7.8 mg/dL (8.5-10.1) L 04/13/19 09:18 Magnesium 1.3 mg/dL (1.8-2.4) L 04/13/19 09:18 Total Bilirubin 0.6 mg/dL (0.2-1) 04/13/19 09:18 AST 42 U/L (15-37) H 04/13/19 09:18 ALT 21 U/L (13-61) 04/13/19 09:18 Alkaline Phosphatase 134 U/L (45-117) H 04/13/19 09:18 Troponin I < 0.02 ng/ml (0.00-0.05) 04/13/19 09:18 Total Protein 6.4 g/dl (6.4-8.2) 04/13/19 09:18 Albumin 3.0 g/dl (3.4-5.0) L 04/13/19 09:18 EK normal sinus rhythm, no acute ST changes QTC 486, no interval change since previous EKG. CT head. No acute intracranial changes Chest x-ray: No acute cardiopulmonary ASSESSMENT AND PLAN: 64 years old, homeless, frequent ED visit and hospitalization, EtOH abuse, paroxysmal atrial fibrillation not on anticoagulation due to alcohol abuse and frequent falls, hypertension, previously admitted with chest pain but signs AMA before work-up last echo was in August 2018 shows normal ejection fraction, evaluated by cardiology consult during previous hospitalization in February 2019, stress test was advised but patient signed AMA, yesterday presented after an episode of passing for 2 days before arrival to ED in the setting of alcohol intoxication, patient was cleared to discharge by night ED team, but in the a.m. patient complained of chest pain and tremors, reevaluation by ED attending, patient remained hemodynamically stable, no new EKG changes troponin a negative is being treated for evaluation of chest pain. 1. Chest pain: Admit to telemetry for observation, atypical, most likely musculoskeletal due to fall, normal troponin I, EKG at baseline, patient has low heart score but considering socially profile and noncompliance is being admitted for inpatient work-up for chest pain, start on metoprolol XL 25 mg, aspirin serial cardiac enzyme, consider cardiology consult and stress test. Tylenol as needed for the chest 2. Alcohol withdrawal/ intoxication: Observe for DT, thiamine 100 mg daily, folic acid, fall precautions, alcohol withdrawal protocol with Librium. 3. Paroxysmal atrial fibrillation: At present in normal sinus rhythm, previously addressed by cardiology not a candidate for anticoagulation. 4. Hypertension: Continue metoprolol XL 25 daily. 5. Hypomagnesemia: Replete magnesium follow-up magnesium level PM 6. Hypokalemia: Repleted in the ED. 7. Fall: Due to alcohol intoxication CT head and chest x-ray no acute fracture. Case discussed with PGY 3 resident agrees with plan of care and evaluation.
--- NOTE | 2019-04-13 14:04 | HP ---
CHIEF COMPLAINT: chest pain PCP: none HISTORY OF PRESENT ILLNESS: 64M is a well known pt to [facility] ED w/ pmhx significant for EtOH abuse ( drink 1 pint of vodka daily), lung cancer, uncontrolled HTN presents in the ED alcohol intoxication found to have symptoms of chest pain. Describes pain as if "someone punched me"; located substernally with radiation to the L arm. Pain is constant and started earlier today while in the hospital. Fam hx significant for MN, son at age 35. Also admits to some shortness of breath associated with chest pain. Additionally, complains of detoxing from alcohol, last drink he states was 3 days ago and says he "needs Librium for detox." States he vomiting today and has some nausea. Denies guerra/d, f/c, changes in urinary/bowel habits, blood in urine or stool, back pain. Pt is unable to remember if he had any recent fall/trauma to chest. ER course was notable for: (1) K 3.3, Mg 1.3, VS stable, EKG unchanged with QTc 485 ms, some T wave flattening (2) IV Mag Sulf given (3) Recent Travel: Denies PAST MEDICAL HISTORY: As per HPI PAST SURGICAL HISTORY: IVC filter Social History: Smoking: Denies Alcohol: Drink ~1 pint of vodka daily Drugs: Denies Allergies Fish Containing Products Allergy (Mild, Verified 04/12/19 18:29) Swelling No Known Drug Allergies Allergy (Verified 04/12/19 18:29) HOME MEDICATIONS: Home Medications Medication Instructions Recorded NK [No Known Home Medication] 04/12/19 REVIEW OF SYSTEMS CONSTITUTIONAL: Absent: fever, chills, diaphoresis, generalized weakness, malaise, loss of appetite, weight change HEENT: Absent: rhinorrhea, nasal congestion, throat pain, throat swelling, difficulty swallowing, mouth swelling, ear pain, eye pain, visual changes CARDIOVASCULAR: chest pain, +b/l leg swelling Absent: syncope, palpitations, irregular heart rate, lightheadedness RESPIRATORY: Absent: cough, shortness of breath, dyspnea with exertion, orthopnea, wheezing, stridor, hemoptysis GASTROINTESTINAL: Absent: abdominal pain, abdominal distension, nausea, vomiting, diarrhea, constipation, melena, hematochezia GENITOURINARY: Absent: dysuria, frequency, urgency, hesitancy, hematuria, flank pain, genital pain MUSCULOSKELETAL: Absent: myalgia, arthralgia, joint swelling, back pain, neck pain SKIN: Absent: rash, itching, pallor HEMATOLOGIC/IMMUNOLOGIC: Absent: easy bleeding, easy bruising, lymphadenopathy, frequent infections ENDOCRINE: Absent: unexplained weight gain, unexplained weight loss, heat intolerance, cold intolerance NEUROLOGIC: Absent: headache, focal weakness or paresthesias, dizziness, unsteady gait, seizure, mental status changes, bladder or bowel incontinence PSYCHIATRIC: Absent: anxiety, depression, suicidal or homicidal ideation, hallucinations. PHYSICAL EXAMINATION Vital Signs - 24 hr 04/12/19 04/13/19 04/13/19 18:22 06:53 07:13 Temperature 97.3 F L 97.5 F L 97.4 F L Pulse Rate 89 Pulse Rate [ Right Radial] Pulse Rate [ 86 96 H Right] Respiratory 18 17 18 Rate Blood Pressure 120/62 Blood Pressure 118/59 L 133/95 [Arm] Blood Pressure [Left Arm] O2 Sat by Pulse 96 97 95 Oximetry (%) 04/13/19 07:34 Temperature 97.5 F L Pulse Rate Pulse Rate [ 92 H Right Radial] Pulse Rate [ Right] Respiratory 20 Rate Blood Pressure Blood Pressure [Arm] Blood Pressure 126/65 [Left Arm] O2 Sat by Pulse 98 Oximetry (%) GENERAL: AAOx3. NAD. Cooperative. Disheveled. HEENT: AT/NC. EOMI. Moist mucus membranes.No pharyngeal erythema. NECK: Normal range of motion, supple without lymphadenopathy, JVD, or masses. LUNGS: CTA B/L. No wheezes, rhonchi, rales noted. Symmetric chest rise. HEART: RRR. Normal S1, S2. Reproducible chest tenderness upon palpation on sternum. No murmurs noted. ABDOMEN: Obese. Soft, NT/ND. Normactive bowel sounds in all 4Qs. No masses noted. MUSCULOSKELETAL: Normal range of motion at all joints. No bony deformities or tenderness. No CVA tenderness. EXTREMITIES: b/l 1+ pitting edema. 2+ dorsalis pedis pulses. Moves all extremities. NEUROLOGICAL: Cranial nerves II-XII intact. Normal speech. Tremulous. PSYCHIATRIC: Cooperative. Good eye contact. Appropriate mood and affect. SKIN: Warm, dry, normal turgor, no rashes or lesions noted, normal capillary refill. Laboratory Results - last 24 hr 04/13/19 04/13/19 04/13/19 09:18 09:18 09:18 WBC 5.4 RBC 3.84 L Hgb 10.3 L Hct 32.4 L MCV 84.3 MCH 26.7 MCHC 31.7 L RDW 19.0 H Plt Count 226 D MPV 8.1 Absolute Neuts (auto) 3.4 Neutrophils % 62.9 Lymphocytes % 28.3 D Monocytes % 4.8 Eosinophils % 3.0 D Basophils % 1.0 Nucleated RBC % 0 Sodium Cancelled 145 Potassium Cancelled 3.3 L Chloride Cancelled 107 Carbon Dioxide Cancelled 29 Anion Gap Cancelled 9 BUN Cancelled 5.8 L Creatinine Cancelled 0.6 Est GFR (CKD-EPI)AfAm Cancelled 123.15 Est GFR (CKD-EPI)NonAf Cancelled 106.25 Random Glucose Cancelled 82 Calcium Cancelled 7.8 L Magnesium Cancelled 1.3 L Total Bilirubin Cancelled 0.6 AST Cancelled 42 H ALT Cancelled 21 Alkaline Phosphatase Cancelled 134 H Troponin I < 0.02 Total Protein Cancelled 6.4 Albumin Cancelled 3.0 L ASSESSMENT/PLAN: 64M is a well known pt to [facility] ED w/ pmhx significant for EtOH abuse ( drink 1 pint of vodka daily), lung cancer, uncontrolled HTN presents in the ED alcohol intoxication found to have symptoms of chest pain. #Chest pain, r/o ACS; likely musculoskeletal given significant hx of frequent falls due to alcohol intoxication as well as reproducible tenderness upon palpation -Last echo was 08/31, showed mild concentric LVH mild TR, normal EF -EKG unchanged from previously; 90 normal sinus rhythm, no acute ST changes QTC 486; trops neg x1, cont to trend -CXR unremarkable for acute pathology -Will start ASA 81, Metoprolol 25 QD -Pt seen by honing machine set up operator tool during a previous admission with same chest complaints ; advised stress test to be done once stable from alcohol withdrawal symptoms however pt is non-adherent to recommendation and lost to follow up as outpatient. Consider cardio consult and stress test. #Alcohol Withdrawal -given Librium 50 x1 in ED -Librium protocol; monitor for DTs -Unclear if fall prior to arrival in hospital, head CT negative -Monitor for DT -Fall risk precautions #HTN; start Metoprolol 25 QD #Hx of Paroxysmal Afib; EKG showed NSR, prolonged QTc 486 ms, unchanged from previous EKG. Start Metoprolol. Poor candidate for AC due to significant hx of alcohol abuse, frequent falls, non-compliance, and poor follow up. #Hypomagnesemia; likely 2/2 alcoholism. Replete Mag and repeat labs in AM. #Hypokalemia; IV KCl ordered. Replete KCl and repeat labs in AM. FEN -Banana bag -recheck lytes in AM -Sodium-controlled diet Dispo -admit to tele obs Family Medical History Family Hx Cardiac Disorders: Son ( at age 34 due to MN.) Visit type - Emergency Visit Emergency Visit: Yes ED Registration Date: 04/13/19 Care time: The patient presented to the Emergency Department on the above date and was hospitalized for further evaluation of their emergent condition. - New Patient This patient is new to me today: Yes Date on this admission: 04/13/19 - Critical Care Critical Care patient: No ATTENDING PHYSICIAN STATEMENT I saw and evaluated the patient. I reviewed the resident's note and discussed the case with the resident. I agree with the resident's findings and plan as documented. SUBJECTIVE: OBJECTIVE: ASSESSMENT AND PLAN:
[2019-04-13] MEDS ORDERED: ASPIRIN 81 MG CHEWABLE TABLETS ONE (14:09)
[2019-04-13] MEDS: ASPIRIN 81 MG CHEWABLE TABLETS PO SCH (14:21)
[2019-04-13] MEDS: metoPROLOL SUCCINATE 25 MG TAB.SR.24H (FP) PO SCH (14:21)
[2019-04-13] MEDS ORDERED: chlordiazePOXIDE 5 MG CAPSULE ONE (15:42)
[2019-04-13] MEDS: FAMOTIDINE 20 MG TABLET PO SCH (15:44)
[2019-04-13] MEDS: chlordiazePOXIDE HCL 25 MG CAPSULE PO SCH ×3 (15:45→21:38)
[2019-04-14] MEDS ORDERED: IBUPROFEN 200 MG TABLET PO ONE (02:48)
[2019-04-14] MEDS: chlordiazePOXIDE HCL 25 MG CAPSULE PO SCH ×3 (05:45→20:59)
[2019-04-14 07:42] LABS: BASO % 0.5 % (0-2.0); EOS % 1.6 % (0-4.5); HEMATOCRIT 36.1 % (35.4-49); HEMOGLOBIN 11.5 GM/dL (11.7-16.9); LYMPH % 20.2 % (8-40); MCH 26.7 pg (25.7-33.7); MEAN CELL VOLUME 83.6 fl (80-96); MEAN PLT VOLUME 8.1 fl (7.5-11.1); MONO % 6.5 % (3.8-10.2); NEUT % 71.2 % (42.8-82.8); PLATELET COUNT 210 K/MM3 (134-434); RBC 4.31 M/mm3 (4.00-5.60); RDW 19.2 % (11.9-15.9); WHITE BLOOD COUNT 8.1 K/mm3 (4.0-10.0)
[2019-04-14 08:22] LABS: ALBUMIN 3.2 g/dl (3.4-5.0); BILIRUBIN,TOTAL 1.9 mg/dL (0.2-1); CALCIUM 8.2 mg/dL (8.5-10.1); CREATININE 0.6 mg/dL (0.55-1.3); MAGNESIUM 1.6 mg/dL (1.8-2.4); PHOSPHOROUS 2.7 mg/dL (2.5-4.9); POTASSIUM 3.4 mmol/L (3.5-5.1)
[2019-04-14] MEDS ORDERED: MAGNESIUM SULF 50% (8.12 MEQ/2 ML-1 GM VIAL) IVPB ONE (09:05)
[2019-04-14] MEDS: FAMOTIDINE 20 MG TABLET PO SCH (09:06)
[2019-04-14] MEDS: ENOXAPARIN NA (PORCINE) 40 MG/0.4 ML DISP.SYRIN SQ SCH (09:06)
[2019-04-14] MEDS: metoPROLOL SUCCINATE 25 MG TAB.SR.24H (FP) PO SCH (09:06)
[2019-04-14] MEDS: ASPIRIN 81 MG CHEWABLE TABLETS PO SCH (09:06)
[2019-04-14] MEDS ORDERED: chlordiazePOXIDE 5 MG CAPSULE ONE ×2 (09:12→23:10)
[2019-04-14] MEDS: chlordiazePOXIDE HCL 10 MG CAPSULE PO PRN ×2 (09:19→23:17)
[2019-04-14] MEDS: KCL 10 MEQ IVPB 10 MEQ/100 ML INFUS.BAG IVPB SCH ×3 (09:22→12:30)
--- NOTE | 2019-04-14 18:23 | PN ---
Teaching Attending Note Name of Resident: Luann Banks ATTENDING PHYSICIAN STATEMENT I saw and evaluated the patient. I reviewed the resident's note and discussed the case with the resident. I agree with the resident's findings and plan as documented. SUBJECTIVE: no fever or chills. aches every where in his body Abd, back, legs , arms. no pain in chest. no SOB. OBJECTIVE: NAD CV: RRR lungs: CTAB Abd: soft, TTP in all quadrants, no rebound, nl BS Ext no edema or erythema ASSESSMENT AND PLAN: 64 y/o man with h/o ETOH abuse, A fib, HTN, who presented with chest pain . 1- ETOH abuse - cont detox - start thiamine and folate 2- CP: resolved. atypical 3- HTN: cont BB 4- Electrolytes imbalance: refused Kcl, took Mg 5- H/o P A fib : cont BB . not on Ac due to ETOH abuse, falls, and non compliance. Lovenox for DVT px
--- NOTE | 2019-04-14 19:44 | PN ---
Physical Exam: SUBJECTIVE: Patient seen and examined in the morning. No acute events overnight. Patient complains of generalized myalgias, headaches, chest pain, and abdominal pain. OBJECTIVE: Vital Signs Period Temp Pulse Resp BP Sys/Jang Pulse Ox Last 24 Hr 98.3 F-99.0 F 79-90 18-20 136-160/75-91 93-95 GENERAL: The patient is awake, alert, and fully oriented, in no acute distress. HEAD: Normal with no signs of trauma. EYES: PERRL, extraocular movements intact, sclera anicteric, conjunctiva clear. No ptosis. LUNGS: Breath sounds equal, clear to auscultation bilaterally HEART: Regular rate and rhythm, S1, S2 without murmur, rub or gallop. Tender to palpation in the right and left chest. ABDOMEN: Soft, nontender, nondistended, normoactive bowel sounds, . EXTREMITIES: 2+ pulses, warm, well-perfused, +1 edema in lower extremities. NEUROLOGICAL: Cranial nerves II through XII grossly intact. Normal speech, gait not observed. PSYCH: Normal mood, normal affect. SKIN: Warm, dry, normal turgor, no rashes or lesions noted Laboratory Results - last 24 hr 04/14/19 04/14/19 06:25 06:25 WBC 8.1 RBC 4.31 Hgb 11.5 L Hct 36.1 MCV 83.6 MCH 26.7 MCHC 32.0 RDW 19.2 H Plt Count 210 MPV 8.1 Absolute Neuts (auto) 5.8 Neutrophils % 71.2 Lymphocytes % 20.2 D Monocytes % 6.5 Eosinophils % 1.6 Basophils % 0.5 Nucleated RBC % 0 Sodium 137 Potassium 3.4 L Chloride 98 Carbon Dioxide 29 Anion Gap 11 BUN 5.0 L Creatinine 0.6 Est GFR (CKD-EPI)AfAm 123.15 Est GFR (CKD-EPI)NonAf 106.25 Random Glucose 78 Calcium 8.2 L Phosphorus 2.7 Magnesium 1.6 L Total Bilirubin 1.9 H AST 40 H ALT 22 Alkaline Phosphatase 156 H Total Protein 7.0 Albumin 3.2 L Active Medications Generic Name Dose Route Start Last Admin Trade Name Freq PRN Reason Stop Dose Admin Aspirin 81 mg 04/13/19 14:00 04/14/19 09:06 Asa - PO Not Given DAILY CAREY Chlordiazepoxide HCl 10 mg 04/16/19 00:00 Librium - PO 04/16/19 23:59 Q12H PRN Signs/symptoms of Withdrawal Chlordiazepoxide HCl 10 mg 04/13/19 14:29 04/14/19 09:19 Librium - PO 04/15/19 23:59 10 mg Q8H PRN Administration Signs/symptoms of Withdrawal Chlordiazepoxide HCl 25 mg 04/13/19 13:00 04/14/19 13:58 Librium - PO 04/14/19 21:01 25 mg Q8H CAREY Administration Chlordiazepoxide HCl 15 mg 04/15/19 05:00 Librium - PO 04/15/19 21:01 Q8H CAREY Chlordiazepoxide HCl 10 mg 04/16/19 05:00 Librium - PO 04/16/19 21:01 Q8H CAREY Chlordiazepoxide HCl 10 mg 04/17/19 05:00 Librium - PO 04/17/19 05:01 ONCE ONE Enoxaparin Sodium 40 mg 04/14/19 10:00 04/14/19 09:06 Lovenox - SQ 40 mg DAILY CAREY Administration Famotidine 20 mg 04/13/19 14:00 04/14/19 09:06 Pepcid - PO Not Given DAILY [facility] Folic Acid 1 mg 04/15/19 10:00 Folic Acid - PO DAILY [facility] Metoprolol Succinate 25 mg 04/13/19 14:00 04/14/19 09:06 Toprol Xl - PO 25 mg DAILY CAREY Administration Thiamine HCl 100 mg 04/15/19 10:00 Vitamin B1 - PO DAILY [facility] ASSESSMENT/PLAN: 64M with PMH of EtOH abuse, lung cancer (mesothelioma), uncontrolled HTN, who presented with Chest pain. 1)Chest pain, -likely musculoskeletal. -EKG unchanged -Chest X-ray showed no acute changes -patient refusing stress test, and cardiac monitoring 2) Alcohol Withdrawal -Librium protocol -Refused transfer to [facility] 3) HTN -Metoprolol 25 mg PO QD 4)Hypomagnesemia -Monitor and replete as needed 5)Hypokalemia -Patient refuses KCl treatment. F: No fluid E: Monitor CMP, mag and K+ N: Sodium restricted diet Dispo: Admitted to telemetry. Visit type - Emergency Visit Emergency Visit: Yes ED Registration Date: 04/13/19 Care time: The patient presented to the Emergency Department on the above date and was hospitalized for further evaluation of their emergent condition. - New Patient This patient is new to me today: Yes Date on this admission: 04/14/19 - Critical Care Critical Care patient: No ATTENDING PHYSICIAN STATEMENT I saw and evaluated the patient. I reviewed the resident's note and discussed the case with the resident. I agree with the resident's findings and plan as documented. SUBJECTIVE: OBJECTIVE: ASSESSMENT AND PLAN:
[2019-04-15] MEDS: chlordiazePOXIDE 5 MG CAPSULE PO SCH ×3 (05:39→21:50)
[2019-04-15 08:11] LABS: BASO % 0.7 % (0-2.0); EOS % 2.6 % (0-4.5); HEMATOCRIT 30.6 % (35.4-49); HEMOGLOBIN 10.3 GM/dL (11.7-16.9); LYMPH % 19.1 % (8-40); MCH 28.7 pg (25.7-33.7); MCHC 33.8 g/dl (32.0-35.9); MEAN PLT VOLUME 8.2 fl (7.5-11.1); NEUT % 71.6 % (42.8-82.8); PLATELET COUNT 178 K/MM3 (134-434); WHITE BLOOD COUNT 6.3 K/mm3 (4.0-10.0)
[2019-04-15 08:41] LABS: ALBUMIN 2.7 g/dl (3.4-5.0); BILIRUBIN,TOTAL 1.1 mg/dL (0.2-1); BLOOD UREA NITROGEN 5.6 mg/dL (7-18); CALCIUM 8.1 mg/dL (8.5-10.1); CREATININE 0.6 mg/dL (0.55-1.3); MAGNESIUM 1.7 mg/dL (1.8-2.4); TOT PROT 6.1 g/dl (6.4-8.2)
[2019-04-15 08:43] LABS: POTASSIUM 2.7 mmol/L (3.5-5.1)
[2019-04-15] MEDS: KCL 10 MEQ IVPB 10 MEQ/100 ML INFUS.BAG IVPB SCH ×3 (10:07→10:50)
[2019-04-15] MEDS: THIAMINE HCL 100 MG TABLET (FP) PO SCH (10:08)
[2019-04-15] MEDS: FAMOTIDINE 20 MG TABLET PO SCH (10:08)
[2019-04-15] MEDS: ASPIRIN 81 MG CHEWABLE TABLETS PO SCH (10:08)
[2019-04-15] MEDS: FOLIC ACID 1 MG TABLET (FP) PO SCH (10:08)
[2019-04-15] MEDS: ENOXAPARIN NA (PORCINE) 40 MG/0.4 ML DISP.SYRIN SQ SCH (10:23)
[2019-04-15] MEDS: metoPROLOL SUCCINATE 25 MG TAB.SR.24H (FP) PO SCH (10:24)
[2019-04-15] MEDS ORDERED: chlordiazePOXIDE 5 MG CAPSULE ONE (10:32)
[2019-04-15] MEDS: chlordiazePOXIDE HCL 10 MG CAPSULE PO PRN (10:33)
--- NOTE | 2019-04-15 18:59 | PN ---
Teaching Attending Note Name of Resident: Luann Banks ATTENDING PHYSICIAN STATEMENT I saw and evaluated the patient. I reviewed the resident's note and discussed the case with the resident. I agree with the resident's findings and plan as documented. SUBJECTIVE: has aches all over OBJECTIVE: declined exam ASSESSMENT AND PLAN: 64 y/o man with h/o ETOH abuse, A fib, HTN, who presented with chest pain . 1- ETOH abuse - cont detox - thiamine and folate 2- CP: resolved. atypical 3- HTN: cont BB 4- Electrolytes imbalance: refused repletion . he understands the risk of arrhythmias and cardiac arrest 5- H/o P A fib : cont BB . not on Ac due to ETOH abuse, falls, and non compliance. Lovenox for DVT px wanted to signs AMA, but stayed
--- NOTE | 2019-04-15 19:09 | PN ---
Physical Exam: SUBJECTIVE: Patient seen and examined in the morning. Patient had one episode of diarrhea overnight, no blood in the stool. Denies chest pain, shortness of breath, fever, and cough. OBJECTIVE: Vital Signs Period Temp Pulse Resp BP Sys/Jang Pulse Ox Last 24 Hr 97.8 F-99.3 F 84-100 18-20 128-156/75-106 94-95 GENERAL: The patient is awake, alert, and fully oriented, in no acute distress. HEAD: Normal with no signs of trauma. EYES: PERRL, extraocular movements intact, sclera anicteric, conjunctiva clear. No ptosis. LUNGS: Breath sounds equal, clear to auscultation bilaterally HEART: Regular rate and rhythm, S1, S2 without murmur, rub or gallop. Tender to palpation in the right and left chest. ABDOMEN: Soft, nontender, nondistended, normoactive bowel sounds, . EXTREMITIES: 2+ pulses, warm, well-perfused, +1 edema in lower extremities. NEUROLOGICAL: Cranial nerves II through XII grossly intact. Normal speech, gait not observed. PSYCH: Normal mood, normal affect. SKIN: Warm, dry, normal turgor, no rashes or lesions noted Laboratory Results - last 24 hr 04/15/19 04/15/19 06:40 06:40 WBC 6.3 RBC 3.60 L Hgb 10.3 L Hct 30.6 L D MCV 85.0 MCH 28.7 MCHC 33.8 RDW 19.0 H Plt Count 178 MPV 8.2 Absolute Neuts (auto) 4.5 Neutrophils % 71.6 Lymphocytes % 19.1 Monocytes % 6.0 Eosinophils % 2.6 Basophils % 0.7 Nucleated RBC % 0 Sodium 139 Potassium 2.7 L* Chloride 101 Carbon Dioxide 29 Anion Gap 8 BUN 5.6 L Creatinine 0.6 Est GFR (CKD-EPI)AfAm 123.15 Est GFR (CKD-EPI)NonAf 106.25 Random Glucose 90 Calcium 8.1 L Magnesium 1.7 L Total Bilirubin 1.1 H AST 34 ALT 17 Alkaline Phosphatase 129 H Total Protein 6.1 L Albumin 2.7 L Active Medications Generic Name Dose Route Start Last Admin Trade Name Freq PRN Reason Stop Dose Admin Aspirin 81 mg 04/13/19 14:00 04/15/19 10:08 Asa - PO Not Given DAILY CAREY Chlordiazepoxide HCl 10 mg 11/02/19 00:00 Librium - PO 04/16/19 23:59 Q12H PRN Signs/symptoms of Withdrawal Chlordiazepoxide HCl 10 mg 04/13/19 14:29 04/15/19 10:33 Librium - PO 04/15/19 23:59 10 mg Q8H PRN Administration Signs/symptoms of Withdrawal Chlordiazepoxide HCl 15 mg 04/15/19 05:00 04/15/19 15:21 Librium - PO 04/15/19 21:01 15 mg Q8H CAREY Administration Chlordiazepoxide HCl 10 mg 04/16/19 05:00 Librium - PO 04/16/19 21:01 Q8H CAREY Chlordiazepoxide HCl 10 mg 04/17/19 05:00 Librium - PO 04/17/19 05:01 ONCE ONE Enoxaparin Sodium 40 mg 04/14/19 10:00 04/15/19 10:23 Lovenox - SQ 40 mg DAILY CAREY Administration Famotidine 20 mg 04/13/19 14:00 04/15/19 10:08 Pepcid - PO Not Given DAILY CAREY Folic Acid 1 mg 04/15/19 10:00 04/15/19 10:08 Folic Acid - PO Not Given DAILY CAREY Metoprolol Succinate 25 mg 04/13/19 14:00 04/15/19 10:24 Toprol Xl - PO 25 mg DAILY CAREY Administration Thiamine HCl 100 mg 04/15/19 10:00 04/15/19 10:08 Vitamin B1 - PO Not Given DAILY [facility] ASSESSMENT/PLAN: 64M with PMH of EtOH abuse, lung cancer (mesothelioma), uncontrolled HTN, who presented with Chest pain. 1)Chest pain, -likely musculoskeletal. -EKG unchanged -Chest X-ray showed no acute changes -patient refusing stress test, and cardiac monitoring 2) Alcohol Withdrawal -Librium protocol -Refused transfer to [facility] 3) HTN -Metoprolol 25 mg PO QD 4)Hypomagnesemia -Monitor and replete as needed 5)Hypokalemia -Patient refuses KCl treatment. F: No fluid E: Monitor CMP, mag and K+ N: Sodium restricted diet Dispo: Admitted to telemetry. Visit type - Emergency Visit Emergency Visit: Yes ED Registration Date: 04/13/19 Care time: The patient presented to the Emergency Department on the above date and was hospitalized for further evaluation of their emergent condition. - New Patient This patient is new to me today: No - Critical Care Critical Care patient: No ATTENDING PHYSICIAN STATEMENT I saw and evaluated the patient. I reviewed the resident's note and discussed the case with the resident. I agree with the resident's findings and plan as documented. SUBJECTIVE: OBJECTIVE: ASSESSMENT AND PLAN:
[2019-04-16] MEDS ORDERED: chlordiazePOXIDE HCL 10 MG CAPSULE PO PRN
[2019-04-16] MEDS ORDERED: chlordiazePOXIDE HCL 10 MG CAPSULE PO SCH (05:00)
[2019-04-16] MEDS ORDERED: PT OWN MED DRAWER 7, Y5N ONE (05:43)
[2019-04-16] MEDS ORDERED: chlordiazePOXIDE 5 MG CAPSULE ONE (05:47)
[2019-04-16] MEDS: ENOXAPARIN NA (PORCINE) 40 MG/0.4 ML DISP.SYRIN SQ SCH (10:40)
[2019-04-16] MEDS: ASPIRIN 81 MG CHEWABLE TABLETS PO SCH (10:40)
[2019-04-16] MEDS: FOLIC ACID 1 MG TABLET (FP) PO SCH (10:40)
[2019-04-16] MEDS: metoPROLOL SUCCINATE 25 MG TAB.SR.24H (FP) PO SCH (10:40)
[2019-04-16] MEDS: THIAMINE HCL 100 MG TABLET (FP) PO SCH (10:45)
[2019-04-16] MEDS: FAMOTIDINE 20 MG TABLET PO SCH (10:45)
[2019-04-16 11:41] VITALS: BP 148/59; PULSE 111; TEMP 98
--- NOTE | 2019-04-16 12:33 | PN ---
Physical Exam: SUBJECTIVE: 64 M with PMH of alcohol abuse, lung cancer 2/2 mesothelioma, uncontrolled HTN, who presented with chest tenderness and pain. Patient seen and examined. Pt c/o of back pain and tenderness to the chest, which is improved today. No overnight event reported. Afebrile, asymptomatic, w/ issues or c/o. OBJECTIVE: Vital Signs Last Vital Signs Temp Pulse Resp BP Pulse Ox 98.0 F 111 H 18 148/59 L 97 04/16/19 10:30 04/16/19 10:30 04/16/19 10:30 04/16/19 10:30 04/15/19 22:00 GENERAL: The patient is awake, alert, and fully oriented, in no acute distress. HEAD: Normal with no signs of trauma. EYES: PERRL, extraocular movements intact, LUNGS: Breath sounds equal, clear to auscultation bilaterally HEART: RRR, No M/G/R. Tenderness to palpation of the chest ABDOMEN: Soft, nontender, nondistended, normoactive bowel sounds, . EXTREMITIES: 2+ pulses, warm, well-perfused, +1 edema in lower extremities. NEUROLOGICAL: Cranial nerves II through XII grossly intact. SKIN: Warm, dry, CBC,CMP WBC 6.3 K/mm3 (4.0-10.0) 04/15/19 06:40 RBC 3.60 M/mm3 (4.00-5.60) L 04/15/19 06:40 Hgb 10.3 GM/dL (11.7-16.9) L 04/15/19 06:40 Hct 30.6 % (35.4-49) L D 04/15/19 06:40 MCV 85.0 fl (80-96) 04/15/19 06:40 MCH 28.7 pg (25.7-33.7) 04/15/19 06:40 MCHC 33.8 g/dl (32.0-35.9) 04/15/19 06:40 RDW 19.0 % (11.9-15.9) H 04/15/19 06:40 Plt Count 178 K/MM3 (134-434) 04/15/19 06:40 MPV 8.2 fl (7.5-11.1) 04/15/19 06:40 Absolute Neuts (auto) 4.5 K/mm3 (1.5-8.0) 04/15/19 06:40 Neutrophils % 71.6 % (42.8-82.8) 04/15/19 06:40 Lymphocytes % 19.1 % (8-40) 04/15/19 06:40 Monocytes % 6.0 % (3.8-10.2) 04/15/19 06:40 Eosinophils % 2.6 % (0-4.5) 04/15/19 06:40 Basophils % 0.7 % (0-2.0) 04/15/19 06:40 Nucleated RBC % 0 % (0-0) 04/15/19 06:40 Sodium 139 mmol/L (136-145) 04/15/19 06:40 Potassium 2.7 mmol/L (3.5-5.1) L* 04/15/19 06:40 Chloride 101 mmol/L (98-107) 04/15/19 06:40 Carbon Dioxide 29 mmol/L (21-32) 04/15/19 06:40 Anion Gap 8 MMOL/L (8-16) 04/15/19 06:40 BUN 5.6 mg/dL (7-18) L 04/15/19 06:40 Creatinine 0.6 mg/dL (0.55-1.3) 04/15/19 06:40 Est GFR (CKD-EPI)AfAm 123.15 04/15/19 06:40 Est GFR (CKD-EPI)NonAf 106.25 04/15/19 06:40 Random Glucose 90 mg/dL (74-106) 04/15/19 06:40 Calcium 8.1 mg/dL (8.5-10.1) L 04/15/19 06:40 Phosphorus 2.7 mg/dL (2.5-4.9) 04/14/19 06:25 Magnesium 1.7 mg/dL (1.8-2.4) L 04/15/19 06:40 Total Bilirubin 1.1 mg/dL (0.2-1) H 04/15/19 06:40 AST 34 U/L (15-37) 04/15/19 06:40 ALT 17 U/L (13-61) 04/15/19 06:40 Alkaline Phosphatase 129 U/L (45-117) H 04/15/19 06:40 Creatine Kinase 101 U/L (26-308) 04/13/19 14:00 Troponin I < 0.02 ng/ml (0.00-0.05) 04/13/19 14:00 Total Protein 6.1 g/dl (6.4-8.2) L 04/15/19 06:40 Albumin 2.7 g/dl (3.4-5.0) L 04/15/19 06:40 Home Medications Medication Instructions Recorded NK [No Known Home Medication] 04/12/19 ASSESSMENT/PLAN: 64M with PMH of alcohol abuse, lung cancer, uncontrolled HTN, who presented with Chest pain. #Chest pain likely 2/2 musculoskeletal vs trauma EKG negative Chest X-ray-no acute changes patient refusing stress test, and cardiac monitoring monitor labs #Alcohol Withdrawal Continue Librium protocol Does not want transfer to [facility] #Hypokalemia Patient refuses KCl treatment. Potassium 2.7 IV potassium ordered #HTN cont Metoprolol 25 mg PO QD #Hypomagnesemia Monitor and replete as needed FEN No fluid Monitor CMP, mag and K+ Sodium restricted diet Dispo: Admitted to telemetry, monitor lytes, especially potassium Visit type - Emergency Visit Emergency Visit: Yes ED Registration Date: 04/13/19 Care time: The patient presented to the Emergency Department on the above date and was hospitalized for further evaluation of their emergent condition. - New Patient This patient is new to me today: Yes Date on this admission: 04/17/19 - Critical Care Critical Care patient: No - Discharge Referral Referred to [facility] No ATTENDING PHYSICIAN STATEMENT I saw and evaluated the patient. I reviewed the resident's note and discussed the case with the resident. I agree with the resident's findings and plan as documented. SUBJECTIVE: OBJECTIVE: ASSESSMENT AND PLAN:
[2019-04-16] MEDS ORDERED: KCL 10 MEQ IVPB 10 MEQ/100 ML INFUS.BAG IVPB SCH (12:45)
--- NOTE | 2019-04-16 15:02 | PN ---
Teaching Attending Note Name of Resident: Alexandr Casanova ATTENDING PHYSICIAN STATEMENT I saw and evaluated the patient. I reviewed the resident's note and discussed the case with the resident. I agree with the resident's findings and plan as documented. patient did not want to be bothered with exam and interview. he declined blood work. later RN informed me that he would like to leave AMA, already at elevator door . he already understands the risks and he already signs AMA form
[2019-04-17] MEDS ORDERED: chlordiazePOXIDE HCL 10 MG CAPSULE PO ONE (05:00)
--- NOTE | 2019-04-17 07:04 | DS ---
Physical Exam: SUBJECTIVE: Patient seen and examined was unremarkable. Pt still c/o of chest tenderness. No overnight event reported. Afebrile, asymptomatic, w/ issues or c/ o. OBJECTIVE: Vital Signs Period Temp Pulse Resp BP Sys/Jang Pulse Ox Last 24 Hr 98.0 F 111 18 148/59 PHYSICAL EXAM GENERAL: The patient is awake, alert, and fully oriented, in no acute distress. HEAD: Normal with no signs of trauma. EYES: PERRL, extraocular movements intact, LUNGS: Breath sounds equal, clear to auscultation bilaterally HEART: RRR, No M/G/R. Tenderness to palpation of the chest ABDOMEN: Soft, nontender, nondistended, normoactive bowel sounds, . EXTREMITIES: 2+ pulses, warm, well-perfused, +1 edema in lower extremities. NEUROLOGICAL: Cranial nerves II through XII grossly intact. SKIN: Warm, dry, LABS CBC,CMP WBC 6.3 K/mm3 (4.0-10.0) 04/15/19 06:40 RBC 3.60 M/mm3 (4.00-5.60) L 04/15/19 06:40 Hgb 10.3 GM/dL (11.7-16.9) L 04/15/19 06:40 Hct 30.6 % (35.4-49) L D 04/15/19 06:40 MCV 85.0 fl (80-96) 04/15/19 06:40 MCH 28.7 pg (25.7-33.7) 04/15/19 06:40 MCHC 33.8 g/dl (32.0-35.9) 04/15/19 06:40 RDW 19.0 % (11.9-15.9) H 04/15/19 06:40 Plt Count 178 K/MM3 (134-434) 04/15/19 06:40 MPV 8.2 fl (7.5-11.1) 04/15/19 06:40 Absolute Neuts (auto) 4.5 K/mm3 (1.5-8.0) 04/15/19 06:40 Neutrophils % 71.6 % (42.8-82.8) 04/15/19 06:40 Lymphocytes % 19.1 % (8-40) 04/15/19 06:40 Monocytes % 6.0 % (3.8-10.2) 04/15/19 06:40 Eosinophils % 2.6 % (0-4.5) 04/15/19 06:40 Basophils % 0.7 % (0-2.0) 04/15/19 06:40 Nucleated RBC % 0 % (0-0) 04/15/19 06:40 Sodium 139 mmol/L (136-145) 04/15/19 06:40 Potassium 2.7 mmol/L (3.5-5.1) L* 04/15/19 06:40 Chloride 101 mmol/L (98-107) 04/15/19 06:40 Carbon Dioxide 29 mmol/L (21-32) 04/15/19 06:40 Anion Gap 8 MMOL/L (8-16) 04/15/19 06:40 BUN 5.6 mg/dL (7-18) L 04/15/19 06:40 Creatinine 0.6 mg/dL (0.55-1.3) 04/15/19 06:40 Est GFR (CKD-EPI)AfAm 123.15 04/15/19 06:40 Est GFR (CKD-EPI)NonAf 106.25 04/15/19 06:40 Random Glucose 90 mg/dL (74-106) 04/15/19 06:40 Calcium 8.1 mg/dL (8.5-10.1) L 04/15/19 06:40 Phosphorus 2.7 mg/dL (2.5-4.9) 04/14/19 06:25 Magnesium 1.7 mg/dL (1.8-2.4) L 04/15/19 06:40 Total Bilirubin 1.1 mg/dL (0.2-1) H 04/15/19 06:40 AST 34 U/L (15-37) 04/15/19 06:40 ALT 17 U/L (13-61) 04/15/19 06:40 Alkaline Phosphatase 129 U/L (45-117) H 04/15/19 06:40 Creatine Kinase 101 U/L (26-308) 04/13/19 14:00 Troponin I < 0.02 ng/ml (0.00-0.05) 04/13/19 14:00 Total Protein 6.1 g/dl (6.4-8.2) L 04/15/19 06:40 Albumin 2.7 g/dl (3.4-5.0) L 04/15/19 06:40 Home Medications Medication Instructions Recorded NK [No Known Home Medication] 04/12/19 HOSPITAL COURSE: Date of Admission:04/13/19 64 M with PMH of alcohol abuse, lung cancer 2/2 mesothelioma, uncontrolled HTN, who presented with chest tenderness and pain. ACS was r/o. Pt was started on Librium protocoal and electrolytes were repleted and monitored. However, pt refused any sort of treatment or transfers, including [facility]. Pt left AMA today after refusing all treatments. EKG no ischemic changes Chest X-ray-no acute changes Librium protocol Does not want transfer to [facility] Patient refuses KCl treatment. Potassium remained low at around 2.7 He verified he understands the risks and he already signs AMA form patient did not want to be bothered with exam and interview. he declined blood work. later RN informed me that he would like to leave AMA. Pt walked to the elevator himself and left. Date of Discharge: 04/17/19 Minutes to complete discharge: 35 Discharge Summary Problems reviewed: Yes Reason For Visit: CHEST PAIN Condition: Guarded - Instructions Diet, Activity, Other Instructions: You were admitted to the hospital because you of chest pain. We evaluated your heart with an EKG and blood work, and the results showed your heart is functioning normally. We did a chest x-ray which showed that you did not have an infection in your lungs. You were started on medications to prevent withdrawals from alcohol. You were medically stable to [facility] these [facility]. Please follow up with your primary care doctor within 1 week. Return to the Emergency Department if you have chest pain, shortness of breath, abdominal pain, nausea, vomiting, diarrhea, or worsening of your symptoms. Referrals: [facility] [place] [Provider Group] Disposition: AGAINST MEDICAL ADVICE - Home Medications Comprehensive Discharge Medication List: Ambulatory Orders NK [No Known Home Medication] 04/12/19 This patient is new to me today: Yes Date on this admission: 04/17/19 Emergency Visit: Yes ED Registration Date: 04/13/19 Care time: The patient presented to the Emergency Department on the above date and was hospitalized for further evaluation of their emergent condition. Critical Care patient: No - Discharge Referral Referred to [facility] No ATTENDING PHYSICIAN STATEMENT I saw and evaluated the patient. I reviewed the resident's note and discussed the case with the resident. I agree with the resident's findings and plan as documented. SUBJECTIVE: OBJECTIVE: ASSESSMENT AND PLAN:
== END 2019-04-16 10:45 | disposition left against medical advice (07) ==
LOC: JER 18:03 → JERBED 04-13 12:08 → J4S 04-13 14:35
PROVIDERS: ADMIT Internal Medicine; ATTEND Internal Medicine
PROC: 3E033GC Introduction of Other Therapeutic Substance into Peripheral Vein, Percutaneous Approach (ICD-10-PCS; principal; 2019-04-13)
DX: R07.89 Other chest pain (principal); F10.220 Alcohol dependence with intoxication, uncomplicated; I10 Essential (primary) hypertension; E78.5 Hyperlipidemia, unspecified; E87.6 Hypokalemia; C45.7 Mesothelioma of other sites; I48.0 Paroxysmal atrial fibrillation; R29.6 Repeated falls; Z91.14 Patient's other noncompliance with medication regimen; Z91.013 Allergy to seafood; W19.XXXA Unspecified fall, initial encounter; Z91.81 History of falling; Y93.9 Activity, unspecified; Y92.9 Unspecified place or not applicable; Z59.0 Homelessness
CPT/HCPCS: 36415; 70450-TC; 71045-TC-FY; 80053; 82550; 83735; 84100; 84484; 85025; 93005; 93010; 96374; 96376; 99284-25; G0378

== ENCOUNTER 2019-04-24 19:05 | Emergency (ER) | payer OTHER ==
[2019-04-24 19:32] VITALS: BP 124/69; PULSE 75; TEMP 98.2; BMI 37.3
--- NOTE | 2019-04-25 03:15 | PDOC ---
History of Present Illness - General Chief Complaint: Alcohol intoxication Stated Complaint: INTOXICATED Time Seen by Provider: 04/25/19 03:14 History Source: Patient, EMS Exam Limitations: Intoxication - History of Present Illness Initial Comments: Pt is a 64 yo M, wiht PMH of EtOH use disorder, chronic back pain, CHF, CAD, known extremity fractures, and mesothelioma, who is well known to our ED, who is brought by EMS for "being intoxicated with alcohol [place]". His initial history is limited due to alcohol intoxication, but he complaints of R shoulder pain "from breaking it yesterday and they did an x-ray at this hospital". Pt has a known fracture to his R shoulder (June 2018), to which pt denied treatment for repair at that time. Pt denies any additional pain at this time, denies recent falls, fever, headache, syncope or seizure, neck pain or other extremity pain, SOB, palpitations, n/v/d/c, new leg swelling , or urinary symptoms. 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 Pt denies any recent travel or sick contacts. Surgical: no relevant history. Family: no relevant history. 04/25/19 05:07 Past History - Travel Traveled outside of the country in the last 30 days: No Close contact w/someone who was outside of country & ill: No - Past Medical History Allergies/Adverse Reactions: Allergies Allergy/AdvReac Type Severity Reaction Status Date / Time Fish Containing Products Allergy Mild Swelling Verified 04/12/19 18:29 No Known Drug Allergies Allergy Verified 04/12/19 18:29 Home Medications: Ambulatory Orders NK [No Known Home Medication] 04/12/19 Anemia: No Asthma: No Cancer: Yes (mesothelioma lung cancer) Cardiac Disorders: No CVA: No COPD: No CHF: No DVT: No Dementia: No Diabetes: No Dialysis: No GI Disorders: No Disorders: No HTN: Yes (non compliance) Hypercholesterolemia: Yes Kidney Stones: No Liver Disease: Yes (ETOH abuse) Psychiatric Problems: Yes (ETOH abuse) Seizures: No Thyroid Disease: No Lung CA: Yes (Mesothelioma) - Surgical History Abdominal Surgery: No Appendectomy: No Cardiac Surgery: No Cholecystectomy: No Lung Surgery: No Neurologic Surgery: No Orthopedic Surgery: No - Reproductive History Testicular Surgery: No - Immunization History TDAP Vaccination: Yes Immunization Up to Date: Yes - Psycho Social/Smoking Cessation Hx Smoking Status: No Smoking History: Never smoked Have you smoked in the past 12 months: No Number of Cigarettes Smoked Daily: 0 If you are a former smoker, when did you quit?: 0 Cigars Per Day: 0 'Breaking Loose' booklet given: 09/22/17 Hx Alcohol Use: Yes (today) Drug/Substance Use Hx: No Substance Use Type: Alcohol Hx Substance Use Treatment: Yes Review of Systems - Review of Systems Able to Perform ROS?: No (limited ROS, see HPI) *Physical Exam - Vital Signs Last Vital Signs Temp Pulse Resp BP Pulse Ox 98.2 F 75 20 124/69 98 04/24/19 19:30 04/24/19 19:30 04/24/19 19:30 04/24/19 19:30 04/24/19 19:30 - Physical Exam Comments: Vitals stable, pt afebrile. Pt in NAD, but smells of alcohol and appears disheveled and unkempt. Pt sleeping in stretcher. Pt acutely intoxicated, smells of urine; oriented to person and place. 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 Pt moving all extremities. No midline spinal tenderness, step-offs, or crepitus. Head normocephalic, atraumatic. Eyes PERRLA, EOMI. Oropharynx without erythema or exudates, no LAD b/l. No nasal congestion. Hearing intact. Clear heart sounds, S1/S2, no JVD, b/l pedal edema, or heart murmur. Clear lung sounds, no respiratory distress, wheezes, crackles, or accessory muscle use. No abdominal or CVA tenderness to palpation, no rebound, no guarding. Abdomen soft, non-distended, and with normoactive bowel sounds. Skin without jaundice or rash. 04/25/19 05:11 Medical Decision Making - Medical Decision Making Pt with alcohol intoxication, complains of known chronic pain to R shoulder. Providing 650 mg PO tylenol for pain. Pt tolerating PO intake in ED. Will observe pt until clinical sobriety. Pt to be signed out to day team. 04/25/19 05:13 Discharge - Discharge Information Problems reviewed: Yes Clinical Impression/Diagnosis: Alcohol intoxication Qualifiers: Complication of substance-induced condition: uncomplicated Qualified Code(s): F10.920 - Alcohol use, unspecified with intoxication, uncomplicated Shoulder pain, right Qualifiers: Chronicity: chronic Qualified Code(s): M25.511 - Pain in right shoulder; G89.29 - Other chronic pain - Admission No - Follow up/Referral - Patient Discharge Instructions - Post Discharge Activity
--- NOTE | 2019-04-25 03:57 | PDOC ---
Attending Attestation - Resident Resident Name: Sadie Elkins - ED Attending Attestation I have performed the following: I have examined & evaluated the patient, The case was reviewed & discussed with the resident, I agree w/resident's findings & plan, Exceptions are as noted - HPI HPI: 04/25/19 03:56 64 M here for ETOH intoxication. Pt denies any recent falls/injuries. Admits to drinking earlier tonight. Unable to provide additional history at this time due to intoxication. - Physicial Exam PE: 04/25/19 03:56 GENERAL: Somnolent, intoxicated HEAD: No signs of trauma EYES: PERRLA, EOMI, sclera anicteric, conjunctiva clear ENT: Auricles normal inspection, hearing grossly normal, nares patent, oropharynx clear without exudates. Moist mucosa NECK: Nontender, no stepoffs, Normal ROM, supple, no lymphadenopathy, JVD, or masses LUNGS: Breath sounds equal, clear to auscultation bilaterally. No wheezes, and no crackles HEART: Regular rate and rhythm, normal S1 and S2, no murmurs, rubs or gallops ABDOMEN: Soft, nontender, normoactive bowel sounds. No guarding, no rebound. No masses EXTREMITIES: Normal range of motion, no edema. No clubbing or cyanosis. No cords, erythema, or tenderness NEUROLOGICAL: Cranial nerves II through XII intact. 5/5 strength and sensation in all extremities SKIN: Warm, Dry, normal turgor, no rashes or lesions noted. - Medical Decision Making 04/25/19 03:57 64 M here for ETOH intoxication. No evidence of traumatic injury on exam. - Reassess when sober 04/25/19 05:59 Pt awake, alert, ambulating in ED with steady gait. Pt is well appearing, with normal vitals. Clinically stable for DC at this time. I discussed the physical exam findings, ancillary test results and final diagnoses with the patient. I answered all of the patient's questions. The patient was satisfied with the care received and felt comfortable with the discharge plan and treatment plan. The patient agrees to follow up with the primary care physician within 24-72 hours.
[2019-04-25] MEDS ORDERED: ACETAMINOPHEN 325 MG TABLET (FP) PO ONE (04:18)
[2019-04-25] MEDS ORDERED: ACETAMINOPHEN 325 MG TABLET (FP) ONE (04:45)
[2019-04-25] MEDS ORDERED: LIDOCAINE 5% TOPICAL PATCH TP ONE (06:13)
[2019-04-25] MEDS ORDERED: LIDOCAINE 5% TOPICAL PATCH ONE (06:15)
[2019-04-25] MEDS ORDERED: LIDOCAINE PATCH REMOVAL MC SCH (22:00)
== END 2019-04-25 06:39 | disposition home or self-care (01) ==
LOC: JER 19:05
DX: F10.220 Alcohol dependence with intoxication, uncomplicated (principal); M25.511 Pain in right shoulder; G89.29 Other chronic pain; I11.0 Hypertensive heart disease with heart failure; I50.9 Heart failure, unspecified; C45.9 Mesothelioma, unspecified; Z91.013 Allergy to seafood; Z59.0 Homelessness; M54.89 Other dorsalgia
CPT/HCPCS: 99282-25

== ENCOUNTER 2019-04-25 19:14 | Emergency (ER) | payer OTHER ==
[2019-04-25 20:07] VITALS: BMI 33.0
--- NOTE | 2019-04-26 01:35 | PDOC ---
History of Present Illness - General Chief Complaint: Injury Stated Complaint: ALCOHOL INTOXICATION Time Seen by Provider: 04/26/19 01:32 History Source: Patient Exam Limitations: Intoxication - History of Present Illness Initial Comments: 04/26/19 01:33 PCP none History of Present Illness: 62-year-old male with past mental history of mesothelioma with long history of EtOH abuse and multiple ER visits and admission secondary to EtOH abuse is presented to the emergency department by EMS secondary to public intoxication. Patient presently states that he is experiencing pain to his lower back. Patient is not slurring his speech at this time but is unstable in gait and is intoxicated. Patient is presently able to deny chest pain, back pain, dizziness , blurred vision, nausea/vomiting, diarrhea, constipation, fever or chills. Patient denies use of any [id number] medication for the treatment of this complaint. Patient denies any sick contacts, travel outside the [place] or contact with any sick individuals who have been outside the [place]. Review of Systems: GENERAL/CONSTITUTIONAL: No fever or chills. No weakness. No weight change. HEAD, EYES, EARS, NOSE AND THROAT: No change in vision. No ear pain or discharge. No sore throat. CARDIOVASCULAR: No chest pain or shortness of breath. RESPIRATORY: No cough, wheezing, or hemoptysis. GASTROINTESTINAL: No nausea, vomiting, diarrhea or constipation. No rectal bleeding. GENITOURINARY: No dysuria, frequency, or change in urination. MUSCULOSKELETAL: No joint or muscle swelling or pain. No neck or back pain. SKIN AND BREASTS: No rash or easy bruising. NEUROLOGIC: No headache, vertigo, loss of consciousness, or loss of sensation. PSYCHIATRIC: EtOH abuse, No depression or anxiety. ENDOCRINE: No increased thirst. No abnormal weight change. HEMATOLOGIC/LYMPHATIC: No anemia, easy bleeding, or history of blood clots. ALLERGIC/IMMUNOLOGIC: No hives or skin allergy. No latex allergy. Past Medical History: Mesothelioma, right shoulder fracture 07/03 (patient declined treatment) Family History: Mother with cancer Social History: EtOH abuse Surgical history: Denies Allergies: No known drug allergies 04/26/19 01:42 Past History - Past Medical History Allergies/Adverse Reactions: Allergies Allergy/AdvReac Type Severity Reaction Status Date / Time Fish Containing Products Allergy Mild Swelling Verified 04/12/19 18:29 No Known Drug Allergies Allergy Verified 04/12/19 18:29 Home Medications: Ambulatory Orders NK [No Known Home Medication] 04/12/19 Anemia: No Asthma: No Cancer: Yes (mesothelioma lung cancer) Cardiac Disorders: No CVA: No COPD: No CHF: No DVT: No Dementia: No Diabetes: No Dialysis: No GI Disorders: No Disorders: No HTN: Yes (non compliance) Hypercholesterolemia: Yes Kidney Stones: No Liver Disease: Yes (ETOH abuse) Psychiatric Problems: Yes (ETOH abuse) Seizures: No Thyroid Disease: No Lung CA: Yes (Mesothelioma) - Surgical History Abdominal Surgery: No Appendectomy: No Cardiac Surgery: No Cholecystectomy: No Lung Surgery: No Neurologic Surgery: No Orthopedic Surgery: No - Reproductive History Testicular Surgery: No - Immunization History Td Vaccination: Yes TDAP Vaccination: Yes Immunization Up to Date: Yes - Psycho Social/Smoking Cessation Hx Smoking Status: No Smoking History: Never smoked Have you smoked in the past 12 months: No Number of Cigarettes Smoked Daily: 0 If you are a former smoker, when did you quit?: 0 Cigars Per Day: 0 'Breaking Loose' booklet given: 09/22/17 Hx Alcohol Use: Yes Drug/Substance Use Hx: No Substance Use Type: Alcohol Hx Substance Use Treatment: Yes *Physical Exam - Vital Signs Last Vital Signs Temp Pulse Resp BP Pulse Ox 98.1 F 79 19 101/51 L 92 L 04/25/19 20:05 04/25/19 20:05 04/25/19 20:05 04/25/19 20:05 04/25/19 20:05 - Physical Exam General Appearance: Yes: Disheveled, Alcohol on Breath HEENT: positive: Normal ENT Inspection Neck: positive: Trachea midline Respiratory/Chest: positive: Lungs Clear, Normal Breath Sounds. negative: Respiratory Distress, Accessory Muscle Use Cardiovascular: positive: Regular Rhythm, Regular Rate, S1, S2. negative: Edema , Murmur Gastrointestinal/Abdominal: positive: Normal Bowel Sounds, Soft. negative: Tender Extremity: positive: Normal Capillary Refill, Normal Inspection Integumentary: positive: Normal Color, Dry, Warm Medical Decision Making - Medical Decision Making 04/26/19 01:34 A/P: Patient is a male with history of mesothelioma and EtOH abuse presented to the emergency department by EMS secondary to public intoxication. Initial SPO2 noted to be 92% on room air. Reassessment performed with O2 saturation at 94%. This is consistent with the patient's baseline. I will observe patient in the emergency department clinical sobriety is assessed. 04/26/19 01:42 04/26/19 05:02 Patient is ambulating without difficulty. I will discharge patient home with recommendations to follow-up with [facility] for alcohol detox. Discharge - Discharge Information Problems reviewed: Yes Clinical Impression/Diagnosis: Alcohol dependence with intoxication Qualifiers: Complication of substance-induced condition: uncomplicated Qualified Code(s): F10.220 - Alcohol dependence with intoxication, uncomplicated Condition: Fair Disposition: HOME - Admission No - Follow up/Referral - Patient Discharge Instructions Additional Instructions: Drink plenty of nonalcoholic fluids. Avoid alcoholic beverages. Should you desire detox and/or rehabilitation these go to [address] [place] [address] for treatment. Return to the emergency department for any new or worsening symptoms. It was a pleasure taking care of you today. Thank you very much for choosing us to provide your emergent health care needs. - Post Discharge Activity
--- NOTE | 2019-04-26 01:37 | PDOC ---
*Physical Exam - Vital Signs Last Vital Signs Temp Pulse Resp BP Pulse Ox 98.1 F 79 19 101/51 L 92 L 04/25/19 20:05 04/25/19 20:05 04/25/19 20:05 04/25/19 20:05 04/25/19 20:05 Medical Decision Making - Medical Decision Making 04/26/19 01:36 Patient seen by the advanced practice provider under my direct supervision. Ancillary testing reviewed as necessary. I agree with plan as outlined by the advanced practice provider. Discharge - Discharge Information Problems reviewed: Yes Clinical Impression/Diagnosis: Alcohol dependence with intoxication - Follow up/Referral - Patient Discharge Instructions - Post Discharge Activity
[2019-04-26 06:18] VITALS: BP 110/52; PULSE 82; TEMP 98.3
== END 2019-04-26 06:10 | disposition home or self-care (01) ==
LOC: JER 19:14
DX: F10.220 Alcohol dependence with intoxication, uncomplicated (principal); M54.89 Other dorsalgia; I10 Essential (primary) hypertension; C45.9 Mesothelioma, unspecified; Z91.013 Allergy to seafood; Z59.0 Homelessness
CPT/HCPCS: 99282-25

== ENCOUNTER 2019-04-27 12:00 | Emergency (ER) | payer OTHER ==
[2019-04-27 12:12] VITALS: BP 98/61; PULSE 84; TEMP 98.1; BMI 33.0
--- NOTE | 2019-04-27 12:39 | PDOC ---
History of Present Illness - General Chief Complaint: Alcohol intoxication Stated Complaint: Alcohol intoxication - History of Present Illness Initial Comments: The pt is a 64M w/ a history of EtOH abuse, chronic back pain, CHF, CAD, and mesothelioma who presents for evaluation of EtOH intoxication and baseline chronic back pain. He was BIBEMS with apparent EtOH intoxication. His history is limited 2/2 likely intoxication. He denies any current physical complaints or new ailments at this time. Denies fevers/chills, chest pain, cough, N/V/D. 04/27/19 12:50 Past History - Past Medical History Allergies/Adverse Reactions: Allergies Allergy/AdvReac Type Severity Reaction Status Date / Time Fish Containing Products Allergy Mild Swelling Verified 04/12/19 18:29 No Known Drug Allergies Allergy Verified 04/12/19 18:29 Home Medications: Ambulatory Orders NK [No Known Home Medication] 04/12/19 Anemia: No Asthma: No Cancer: Yes (mesothelioma lung cancer) Cardiac Disorders: No CVA: No COPD: No CHF: No DVT: No Dementia: No Diabetes: No Dialysis: No GI Disorders: No Disorders: No HTN: Yes (non compliance) Hypercholesterolemia: Yes Kidney Stones: No Liver Disease: Yes (ETOH abuse) Psychiatric Problems: Yes (ETOH abuse) Seizures: No Thyroid Disease: No Lung CA: Yes (Mesothelioma) - Surgical History Abdominal Surgery: No Appendectomy: No Cardiac Surgery: No Cholecystectomy: No Lung Surgery: No Neurologic Surgery: No Orthopedic Surgery: No - Reproductive History Testicular Surgery: No - Immunization History Td Vaccination: Yes TDAP Vaccination: Yes Immunization Up to Date: Yes - Psycho Social/Smoking Cessation Hx Smoking Status: No Smoking History: Never smoked Have you smoked in the past 12 months: No Number of Cigarettes Smoked Daily: 0 If you are a former smoker, when did you quit?: 0 Cigars Per Day: 0 Information on smoking cessation initiated: No 'Breaking Loose' booklet given: 09/22/17 Hx Alcohol Use: No Drug/Substance Use Hx: No Substance Use Type: Alcohol Hx Substance Use Treatment: Yes Review of Systems - Review of Systems Able to Perform ROS?: Yes Comments:: GENERAL/CONSTITUTIONAL: No fever or chills HEAD, EYES, EARS, NOSE AND THROAT: No sore throat CARDIOVASCULAR: No chest pain or shortness of breath RESPIRATORY: Denies cough GASTROINTESTINAL: No nausea, vomiting GENITOURINARY: No dysuria MUSCULOSKELETAL: +chronic back pain SKIN: No rash NEUROLOGIC: No headache HEMATOLOGIC/LYMPHATIC: No easy bleeding ALLERGIC/IMMUNOLOGIC: No hives or skin allergy 04/27/19 12:39 *Physical Exam - Vital Signs Last Vital Signs Temp Pulse Resp BP Pulse Ox 98.1 F 84 18 98/61 97 04/27/19 12:11 04/27/19 12:11 04/27/19 12:11 04/27/19 12:11 04/27/19 12:11 - Physical Exam Comments: GENERAL: Awake, and oriented to person/place HEAD: No signs of trauma, normocephalic, atraumatic EYES: PERRLA, EOMI, sclera anicteric, conjunctiva clear ENT: Hearing grossly normal, nares patent, oropharynx clear without exudates. Moist mucosa LUNGS: No distress, speaks in full sentences, clear to auscultation bilaterally HEART: Regular rate and rhythm, normal S1 and S2, no murmurs appreciated, peripheral pulses normal and equal bilaterally ABDOMEN: Soft, protuberant, nontender, normoactive bowel sounds. No guarding, no rebound EXTREMITIES: Moving all extremities independently NEUROLOGICAL: Cranial nerves II through XII grossly intact. Coherent speech SKIN: Warm, Dry 04/27/19 12:39 Medical Decision Making - Medical Decision Making The pt is a 64M w/ a history of EtOH abuse, chronic back pain, CHF, CAD, and mesothelioma who presents for evaluation of EtOH intoxication and baseline chronic back pain ED Course Reg diet 04/27/19 13:09 Pt ambulating in ED w/ stable gait, oriented x3, speech coherent Plan for D/C Discharge instructions and return precautions given Dispo: D/C 04/27/19 13:38 Discharge - Discharge Information Problems reviewed: Yes Clinical Impression/Diagnosis: Intoxication Condition: Stable Disposition: HOME - Admission No - Follow up/Referral - Patient Discharge Instructions Patient Printed Discharge Instructions: DI for Alcohol Abuse - Post Discharge Activity
--- NOTE | 2019-04-27 13:33 | PDOC ---
Documentation entered by Susu Gonzales SCRIBE, acting as scribe for Jamal Rodriges MD. Jamal Rodriges MD: This documentation has been prepared by the Janet pereira Nirvannie, SCRIBE, under my direction and personally reviewed by me in its entirety. I confirm that the documentation accurately reflects all work, treatment, procedures, and medical decision making performed by me. Attending Attestation - Resident Resident Name: Sigifredo Davis - ED Attending Attestation I have performed the following: I have examined & evaluated the patient, The case was reviewed & discussed with the resident, I agree w/resident's findings & plan - HPI HPI: 04/27/19 13:06 64 M with h/o chronic alcohol abuse, HTN, HLD, NIDDM, presenting for ETOH intoxication. Pt denies any trauma or injuries. Pt states he is here because it is cold outside. Denies congestions. Denies SI/HI/AVH. - Physicial Exam PE: 04/27/19 13:07 GENERAL: Awake, alert, and fully oriented, in no acute distress. HEAD: No signs of trauma EYES: PERRLA, EOMI, sclera anicteric, conjunctiva clear ENT: Auricles normal inspection, hearing grossly normal, nares patent, oropharynx clear without exudates. Moist mucosa NECK: Nontender, no stepoffs, Normal ROM, supple, no lymphadenopathy, JVD, or masses LUNGS: Breath sounds equal, clear to auscultation bilaterally. No wheezes, and no crackles HEART: Regular rate and rhythm, normal S1 and S2, no murmurs, rubs or gallops ABDOMEN: Soft, nontender, normoactive bowel sounds. No guarding, no rebound. No masses EXTREMITIES: Normal range of motion, no edema. No clubbing or cyanosis. No cords, erythema, or tenderness NEUROLOGICAL: Cranial nerves II through XII intact. 5/5 strength and sensation in all extremities, Normal speech, normal gait, normal cerebellar function SKIN: Warm, Dry, normal turgor, no rashes or lesions noted. - Medical Decision Making 04/27/19 13:38 64 M here for ETOH intoxication. At time of evaluation, pt is awake and alert, ambulatory in ED with steady gait. Requesting to leave. - DC Pt is well appearing, with normal vitals. Clinically stable for DC at this time. I discussed the physical exam findings, ancillary test results and final diagnoses with the patient. I answered all of the patient's questions. The patient was satisfied with the care received and felt comfortable with the discharge plan and treatment plan. The patient agrees to follow up with the primary care physician within 24-72 hours.
== END 2019-04-27 13:40 | disposition home or self-care (01) ==
LOC: JER 12:00
DX: F10.120 Alcohol abuse with intoxication, uncomplicated (principal); I25.10 Atherosclerotic heart disease of native coronary artery without angina pectoris; I50.9 Heart failure, unspecified; G89.29 Other chronic pain; C45.7 Mesothelioma of other sites; Z91.013 Allergy to seafood
CPT/HCPCS: 99281-25

== ENCOUNTER 2019-04-29 13:59 | Emergency (ER) | payer OTHER ==
[2019-04-29 14:14] VITALS: BMI 35.9
--- NOTE | 2019-04-29 14:14 | PDOC ---
Rapid Medical Evaluation Chief Complaint: Back Pain Time Seen by Provider: 04/29/19 14:11 Medical Evaluation: Allergies Allergy/AdvReac Type Severity Reaction Status Date / Time Fish Containing Products Allergy Mild Swelling Verified 04/12/19 18:29 No Known Drug Allergies Allergy Verified 04/12/19 18:29 04/29/19 14:11 64 year old yeaR OLD undomiciled 4MALE c/o back pain and right shoulder pain. patient alert ox3. [place] PE: patient alert ox3, disheveled. A: back pain P: no orders. patient to the ER for further management of care. Discharge Disposition - Diagnosis Back pain Qualifiers: Back pain location: low back pain Chronicity: acute Back pain laterality: unspecified Sciatica presence: unspecified whether sciatica present Qualified Code(s): M54.5 - Low back pain - Referrals - Patient Instructions - Post Discharge Activity
--- NOTE | 2019-04-29 14:57 | PDOC ---
History of Present Illness - General Chief Complaint: Back Pain Stated Complaint: INTOX / BACK PAIN Time Seen by Provider: 04/29/19 14:11 History Source: Patient Past History - Past Medical History Allergies/Adverse Reactions: Allergies Allergy/AdvReac Type Severity Reaction Status Date / Time Fish Containing Products Allergy Mild Swelling Verified 04/29/19 14:11 No Known Drug Allergies Allergy Verified 04/29/19 14:11 Home Medications: Ambulatory Orders NK [No Known Home Medication] 04/12/19 Anemia: No Asthma: No Cancer: Yes (mesothelioma lung cancer) Cardiac Disorders: No CVA: No COPD: No CHF: No DVT: No Dementia: No Diabetes: No Dialysis: No GI Disorders: No Disorders: No HTN: Yes (non compliance) Hypercholesterolemia: Yes Kidney Stones: No Liver Disease: Yes (ETOH abuse) Psychiatric Problems: Yes (ETOH abuse) Seizures: No Thyroid Disease: No Lung CA: Yes (Mesothelioma) - Surgical History Abdominal Surgery: No Appendectomy: No Cardiac Surgery: No Cholecystectomy: No Lung Surgery: No Neurologic Surgery: No Orthopedic Surgery: No - Reproductive History Testicular Surgery: No - Immunization History Td Vaccination: Yes TDAP Vaccination: Yes Immunization Up to Date: Yes - Psycho Social/Smoking Cessation Hx Smoking Status: No Smoking History: Unknown if ever smoked Have you smoked in the past 12 months: No Number of Cigarettes Smoked Daily: 0 If you are a former smoker, when did you quit?: 0 Cigars Per Day: 0 'Breaking Loose' booklet given: 09/22/17 Hx Alcohol Use: No Drug/Substance Use Hx: No Substance Use Type: Alcohol Hx Substance Use Treatment: Yes *Physical Exam - Vital Signs Last Vital Signs Temp Pulse Resp BP Pulse Ox 98.5 F 92 H 17 110/58 L 100 04/29/19 14:12 04/29/19 14:12 04/29/19 14:12 04/29/19 14:12 04/29/19 14:12 Discharge - Discharge Information Problems reviewed: Yes Clinical Impression/Diagnosis: Back pain Qualifiers: Back pain location: low back pain Chronicity: acute Back pain laterality: unspecified Sciatica presence: unspecified whether sciatica present Qualified Code(s): M54.5 - Low back pain Alcohol intoxication Qualifiers: Complication of substance-induced condition: uncomplicated Qualified Code(s): F10.920 - Alcohol use, unspecified with intoxication, uncomplicated Condition: Stable Disposition: HOME - Admission No - Follow up/Referral - Patient Discharge Instructions Patient Printed Discharge Instructions: DI for Alcohol Abuse, DI for Drug or Alcohol Withdrawal, DI for Low Back Pain Additional Instructions: You were seen in the ER for back pain, alcohol intoxication. Please return to the ER if you develop weakness, high fevers, are unable to walk, develop chest pain, or have difficulty breathing. - Post Discharge Activity
--- NOTE | 2019-04-29 15:14 | PDOC ---
Attending Attestation - Resident Resident Name: Ron Ryan - ED Attending Attestation I have performed the following: I have examined & evaluated the patient, The case was reviewed & discussed with the resident, I agree w/resident's findings & plan, Exceptions are as noted - HPI HPI: 04/29/19 15:14 64 M with h/o chronic alcohol abuse, HTN, HLD, NIDDM, presenting for ETOH intoxication. Pt denies any trauma or injuries. Pt states he is here because it is cold outside. Denies congestions. Denies SI/HI/AVH. - Physicial Exam PE: 04/29/19 15:14 "GENERAL: Awake, alert, and fully oriented, in no acute distress. HEAD: No signs of trauma EYES: PERRLA, EOMI, sclera anicteric, conjunctiva clear ENT: Auricles normal inspection, hearing grossly normal, nares patent, oropharynx clear without exudates. Moist mucosa NECK: Nontender, no stepoffs, Normal ROM, supple, no lymphadenopathy, JVD, or masses LUNGS: Breath sounds equal, clear to auscultation bilaterally. No wheezes, and no crackles HEART: Regular rate and rhythm, normal S1 and S2, no murmurs, rubs or gallops ABDOMEN: Soft, nontender, normoactive bowel sounds. No guarding, no rebound. No masses EXTREMITIES: Normal range of motion, no edema. No clubbing or cyanosis. No cords, erythema, or tenderness NEUROLOGICAL: Cranial nerves II through XII intact. 5/5 strength and sensation in all extremities, Normal speech, normal gait, normal cerebellar function SKIN: Warm, Dry, normal turgor, no rashes or lesions noted. - Medical Decision Making 04/29/19 15:14 64 M with ETOH intoxication. - Monitor in ED - Reassess when sober
[2019-04-29 18:04] VITALS: BP 126/73; PULSE 89; TEMP 98.3
== END 2019-04-29 17:56 | disposition home or self-care (01) ==
LOC: JER 13:59
DX: F10.120 Alcohol abuse with intoxication, uncomplicated (principal); I10 Essential (primary) hypertension; E78.00 Pure hypercholesterolemia, unspecified; Z91.19 Patient's noncompliance with other medical treatment and regimen; C45.7 Mesothelioma of other sites; K76.9 Liver disease, unspecified
CPT/HCPCS: 99282-25

== ENCOUNTER 2019-05-01 17:54 | Emergency (ER) | payer OTHER ==
[2019-05-01 18:09] VITALS: TEMP 97.4; BMI 43.0
--- NOTE | 2019-05-01 19:20 | PDOC ---
History of Present Illness - General Chief Complaint: Alcohol intoxication Stated Complaint: INTOX,WEAKNESS Time Seen by Provider: 05/01/19 18:20 History Source: Patient Exam Limitations: Intoxication - History of Present Illness Initial Comments: 05/03/19 12:56 HPI: 64M PMH EtOH abuse, chronic back pain, CHF, CAD, and mesothelioma BIBEMS for etoh intoxication and "its cold outside" c/o nonradiating back pain w/o numbness or tingling. Denies f/c, n/v, cp/sob. Atraumatic, denies falls. Denies AVH, HI/SI. Poor historian. Past History - Past Medical History Allergies/Adverse Reactions: Allergies Allergy/AdvReac Type Severity Reaction Status Date / Time Fish Containing Products Allergy Mild Swelling Verified 05/01/19 18:08 No Known Drug Allergies Allergy Verified 05/01/19 18:08 Home Medications: Ambulatory Orders NK [No Known Home Medication] 04/12/19 Anemia: No Asthma: No Cancer: Yes (mesothelioma lung cancer) Cardiac Disorders: No CVA: No COPD: No CHF: No DVT: No Dementia: No Diabetes: No Dialysis: No GI Disorders: No Disorders: No HTN: Yes (non compliance) Hypercholesterolemia: Yes Kidney Stones: No Liver Disease: Yes (ETOH abuse) Psychiatric Problems: Yes (ETOH abuse) Seizures: No Thyroid Disease: No Lung CA: Yes (Mesothelioma) - Surgical History Abdominal Surgery: No Appendectomy: No Cardiac Surgery: No Cholecystectomy: No Lung Surgery: No Neurologic Surgery: No Orthopedic Surgery: No - Reproductive History Testicular Surgery: No - Immunization History Td Vaccination: Yes TDAP Vaccination: Yes Immunization Up to Date: Yes - Psycho Social/Smoking Cessation Hx Smoking Status: No Smoking History: Former smoker Have you smoked in the past 12 months: No Number of Cigarettes Smoked Daily: 0 If you are a former smoker, when did you quit?: 0 Cigars Per Day: 0 Information on smoking cessation initiated: No 'Breaking Loose' booklet given: 09/22/17 Hx Alcohol Use: Yes (DAILY) Drug/Substance Use Hx: No Substance Use Type: Alcohol Hx Substance Use Treatment: Yes Review of Systems - Review of Systems Comments:: 05/03/19 12:56 ROS: CONSTITUTIONAL: Denies F / C HEENT: Denies headache, head trauma RESP: Denies SOB CARD: Denies chest pain, palpitations GI: Denies N / V / D, abdominal pain SKIN: Denies rashes NEURO: Denies numbness, tingling, weakness *Physical Exam - Vital Signs Last Vital Signs Temp Pulse Resp BP Pulse Ox 97.4 F L 87 16 101/56 L 95 05/01/19 18:00 05/01/19 18:00 05/01/19 18:00 05/01/19 18:00 05/01/19 18:00 - Physical Exam Comments: 05/03/19 12:56 PE: GEN: NAD, disheveled. AAOx3 HEENT: NC/AT, EOMI, PERRLA. No facial asymmetry. Moist mucous membranes. Normal voice. Supple neck w/ FROM. CV: S1/S2, RRR, no m/r/g LUNG: CTAB, no wheezes, crackles, rales, rhonchi. GI: soft, ndnt, +BS, no guarding, no rebound. No masses. EXTREMITIES: No obvious deformities of all extremities. SKIN: warm, dry, normal turgor PSYCH: normal mood and affect NEURO: Moving all extremities well. Pt refused to ambulate. BACK: no step offs, no midline TTP, no obvious deformities, no ecchymoses Medical Decision Making - Medical Decision Making 05/01/19 20:07 MDM: 64M frequently in [facility]-ED BIBEMS etoh intox c/o back pain w/o numbness or tingling. -awaiting clinical sobriety -assess ambulation then 05/02/19 00:00 Pt not clinically sober; unable to ambulate yet Signed out to PM team Discharge - Discharge Information Problems reviewed: Yes Clinical Impression/Diagnosis: Alcohol abuse Alcohol intoxication Qualifiers: Complication of substance-induced condition: uncomplicated Qualified Code(s): F10.920 - Alcohol use, unspecified with intoxication, uncomplicated Condition: Stable Disposition: HOME - Follow up/Referral - Patient Discharge Instructions Patient Printed Discharge Instructions: DI for Alcohol Abuse Additional Instructions: You were seen in the Emergency Department. Follow-up with your primary care doctor within 1-2 days regarding this ED visit. Refrain from using alcohol, cigarettes, and illicit drugs. IMMEDIATELY return to the Emergency Department if you have any worsening pain, fevers or chills, loss of consciousness, inability to tolerate food or fluids, or any other concerns. - Post Discharge Activity
[2019-05-02] MEDS ORDERED: ACETAMINOPHEN 325 MG TABLET (FP) PO ONE (00:01)
--- NOTE | 2019-05-02 00:01 | PDOC ---
*Physical Exam - Vital Signs Last Vital Signs Temp Pulse Resp BP Pulse Ox 97.4 F L 87 16 101/56 L 95 05/01/19 18:00 05/01/19 18:00 05/01/19 18:00 05/01/19 18:00 05/01/19 18:00 Medical Decision Making - Medical Decision Making Pt signed out to me by Riccardo Menard, see prior note. Pt presented to ED for low back pain and reported to triage that he is also here because it is cold outside. On prior exam pt had no focal tenderness to his back, good leg strength, no red flags. Pt is intoxicated, hx ETOH abuse, well known to the department. Initial Vital Signs Temp Pulse Resp BP Pulse Ox 97.4 F L 87 16 101/56 L 95 05/01/19 18:00 05/01/19 18:00 05/01/19 18:00 05/01/19 18:00 05/01/19 18:00 Tylenol ordered. Pt sleeping. Will monitor and observe, allow pt to sober up. 05/02/19 06:31 Pt clinically sober. Pt ambulated well without assistance. Pt discharged. Discharge - Discharge Information Problems reviewed: Yes Clinical Impression/Diagnosis: Alcohol abuse Alcohol intoxication Qualifiers: Complication of substance-induced condition: uncomplicated Qualified Code(s): F10.920 - Alcohol use, unspecified with intoxication, uncomplicated Condition: Stable Disposition: HOME - Admission No - Follow up/Referral - Patient Discharge Instructions Patient Printed Discharge Instructions: DI for Alcohol Abuse Additional Instructions: You were seen in the Emergency Department. Follow-up with your primary care doctor within 1-2 days regarding this ED visit. Refrain from using alcohol, cigarettes, and illicit drugs. IMMEDIATELY return to the Emergency Department if you have any worsening pain, fevers or chills, loss of consciousness, inability to tolerate food or fluids, or any other concerns. - Post Discharge Activity
[2019-05-02] MEDS ORDERED: ACETAMINOPHEN 325 MG TABLET (FP) ONE (00:16)
--- NOTE | 2019-05-02 00:18 | PDOC ---
Documentation entered by Geovanna Vera SCRIBE, acting as scribe for Palmer Stone MD. Palmer Stone MD: This documentation has been prepared by the hollandibChuy delatorre Lincy, SCRIBE, under my direction and personally reviewed by me in its entirety. I confirm that the documentation accurately reflects all work, treatment, procedures, and medical decision making performed by me. Attending Attestation - Resident Resident Name: Chandra Gu - ED Attending Attestation I have performed the following: I have examined & evaluated the patient, The case was reviewed & discussed with the resident, I agree w/resident's findings & plan, Exceptions are as noted - HPI HPI: 05/01/19 22:46 64 years old with past medical history significant for EtOH abuse chronic back pain CHF CAD presents to the ED with atraumatic back pain. No bruising no history of falls patient with previous visits for similar stating it was cold outside - Physicial Exam PE: 05/02/19 03:56 Vitals: Triage Vital signs reviewed General Appearance: No acute distress, well nourished well developed, Head: Atraumatic, Eyes: Pupils equal reactive round, extraocular movement intactCardiac: Regular rate and rhythym, no murmurs, no rubs, no gallops, Lungs: Clear to auscultation bilateral, good air movement bilaterally, Abdomen: Soft, non distended, normal bowel sounds, non tender to palpation Musculoskeletal: No bruising to the back no midline tenderness to palpation Extremities: Full range of motion to all extremities, no cyanosis, clubbing, or edema Skin: Warm and dry, no rashes or lesions, no rash, no petechiae Neuro: Strength intact to all extremities, sensation intact to all extremities , Psych: Slightly intoxicated, + AOB - Medical Decision Making 05/02/19 07:21 Patient observed in the emergency department x8 hours allowed to metabolize Patient now clinically sober no longer complaining of back discomfort asking to leave Offered patient detox but not interested at this time Findings, the need for follow-up and strict return instructions discussed with patient.
[2019-05-02 01:34] VITALS: BP 114/58; PULSE 86
== END 2019-05-02 07:14 | disposition home or self-care (01) ==
LOC: JER 17:54
DX: F10.220 Alcohol dependence with intoxication, uncomplicated (principal); M54.5 Low back pain; G89.29 Other chronic pain; I25.10 Atherosclerotic heart disease of native coronary artery without angina pectoris; I50.9 Heart failure, unspecified; I11.0 Hypertensive heart disease with heart failure; C45.9 Mesothelioma, unspecified; Z91.013 Allergy to seafood; Z59.0 Homelessness
CPT/HCPCS: 99283-25

== ENCOUNTER 2019-05-03 19:59 | Emergency (ER) | payer OTHER ==
--- NOTE | 2019-05-03 20:17 | PDOC ---
Rapid Medical Evaluation Time Seen by Provider: 05/03/19 20:12 Medical Evaluation: Allergies Allergy/AdvReac Type Severity Reaction Status Date / Time Fish Containing Products Allergy Mild Swelling Verified 05/01/19 18:08 No Known Drug Allergies Allergy Verified 05/01/19 18:08 05/03/19 20:13 I have performed a brief in-person evaluation of this patient. The patient presents with a chief complaint of: no complaint, brought in by ems Pertinent physical exam findings:stable and in NAD, non-focal I have ordered the following: provider to determine The patient will proceed to the ED for further evaluation.
[2019-05-03 20:18] VITALS: BP 107/74; PULSE 94; TEMP 97.5; BMI 35.9
--- NOTE | 2019-05-03 22:04 | PDOC ---
Attending Attestation - Resident Resident Name: Ashish Mosherson - ED Attending Attestation I have performed the following: I have examined & evaluated the patient, The case was reviewed & discussed with the resident, I agree w/resident's findings & plan - HPI HPI: 05/03/19 22:04 see resident hpi - Physicial Exam PE: 05/03/19 22:04 agree with resident exam - Medical Decision Making 05/03/19 22:04 64-year-old male with alcohol intoxication and no specific complaints at this time No outward evidence of trauma Plan for reevaluation and DC when clinically sober
--- NOTE | 2019-05-03 22:10 | PDOC ---
History of Present Illness - General Chief Complaint: Alcohol intoxication Stated Complaint: INTOXICATED Time Seen by Provider: 05/03/19 20:12 - History of Present Illness Initial Comments: 05/03/19 22:04 64 yo M with multiple medical comorbidities, well known to ED, Etoh dependence, who arrives via EMS w/ Etoh intox. Patient denies complaints. Patient found sleep in chair outdoors, suspected Etoh intox. Endorses Etoh use today, unknown amount. Patient denies GARCIA, vision change, palpitations, cough, wheezing, orthopena, PND , leg swelling/pain, N/V, F,C, CP, SOB, urinary complaints, hematuria, BPR, abdominal pain, diarrhea, constipation, lightheadedness, weakness, sensory changes. PMHx: as noted above ROS: as noted SHx: Denies Etoh, IVDA, tobacco use Allergies: NKDA Past History - Past Medical History Allergies/Adverse Reactions: Allergies Allergy/AdvReac Type Severity Reaction Status Date / Time Fish Containing Products Allergy Mild Swelling Verified 05/03/19 20:16 No Known Drug Allergies Allergy Verified 05/03/19 20:16 Home Medications: Ambulatory Orders NK [No Known Home Medication] 04/12/19 Anemia: No Asthma: No Cancer: Yes (mesothelioma lung cancer) Cardiac Disorders: No CVA: No COPD: No CHF: No DVT: No Dementia: No Diabetes: No Dialysis: No GI Disorders: No Disorders: No HTN: Yes (non compliance) Hypercholesterolemia: Yes Kidney Stones: No Liver Disease: Yes (ETOH abuse) Psychiatric Problems: Yes (ETOH abuse) Seizures: No Thyroid Disease: No Lung CA: Yes (Mesothelioma) - Surgical History Abdominal Surgery: No Appendectomy: No Cardiac Surgery: No Cholecystectomy: No Lung Surgery: No Neurologic Surgery: No Orthopedic Surgery: No - Reproductive History Testicular Surgery: No - Immunization History Td Vaccination: Yes TDAP Vaccination: Yes Immunization Up to Date: Yes - Psycho Social/Smoking Cessation Hx Smoking Status: No Smoking History: Former smoker Have you smoked in the past 12 months: No Number of Cigarettes Smoked Daily: 0 If you are a former smoker, when did you quit?: 0 Cigars Per Day: 0 Information on smoking cessation initiated: No 'Breaking Loose' booklet given: 09/22/17 Hx Alcohol Use: Yes Drug/Substance Use Hx: No Substance Use Type: Alcohol Hx Substance Use Treatment: Yes Review of Systems - Review of Systems Comments:: 05/03/19 22:06 GENERAL/CONSTITUTIONAL: No fever or chills. No weakness. HEAD, EYES, EARS, NOSE AND THROAT: No change in vision. No ear pain or discharge. No sore throat. CARDIOVASCULAR: No chest pain or shortness of breath RESPIRATORY: No cough, wheezing, or hemoptysis. GASTROINTESTINAL: No nausea, vomiting, diarrhea or constipation. GENITOURINARY: No dysuria, frequency, or change in urination. MUSCULOSKELETAL: No joint or muscle swelling or pain. No neck or back pain. SKIN: No rash NEUROLOGIC: No headache, vertigo, loss of consciousness, or change in strength/ sensation. ENDOCRINE: No increased thirst. No abnormal weight change HEMATOLOGIC/LYMPHATIC: No anemia, easy bleeding, or history of blood clots. ALLERGIC/IMMUNOLOGIC: No hives or skin allergy. *Physical Exam - Vital Signs Last Vital Signs Temp Pulse Resp BP Pulse Ox 97.5 F L 94 H 18 107/74 95 05/03/19 20:16 05/03/19 20:16 05/03/19 20:16 05/03/19 20:16 05/03/19 20:16 - Physical Exam Comments: 05/03/19 22:06 GENERAL: + slurred speech, poor hygeine, disheveled appearance, malodorous, Awake, alert, and fully oriented, in no acute distress HEAD: No signs of trauma, normocephalic, atraumatic EYES: PERRLA, EOMI, sclera anicteric, conjunctiva clear ENT: Auricles normal inspection, hearing grossly normal, nares patent, oropharynx clear without exudates. Moist mucosa NECK: Normal ROM, supple, no lymphadenopathy, JVD, or masses LUNGS: No distress, speaks full sentences, clear to auscultation bilaterally HEART: Regular rate and rhythm, normal S1 and S2, no murmurs, rubs or gallops, peripheral pulses normal and equal bilaterally. ABDOMEN: Soft, nontender, normoactive bowel sounds. No guarding, no rebound. No masses EXTREMITIES : Normal inspection, Normal range of motion, no edema. No clubbing or cyanosis NEUROLOGICAL: Cranial nerves II through XII grossly intact. Normal speech, no focal sensorimotor deficits SKIN: Warm, Dry, normal turgor, no rashes or lesions noted Medical Decision Making - Medical Decision Making 05/03/19 22:08 64 yo M with multiple medical comorbidities, well known to ED, Etoh dependence, who arrives via EMS w/ Etoh intox. vitals wnl, AF, A&O. Speech slurred. Patient clinically inebriated. No evidence of Etoh withdrawal, or signs of closed head injury. Patient denies falls , GARCIA, vision change, palpitations, cough, wheezing , leg swelling/pain, N/V, F,C, CP, SOB, urinary complaints, abdominal pain, diarrhea, constipation, lightheadedness, weakness, sensory changes. Will continue to observe for sobriety. 05/04/19 06:53 Ed Course: Patient clinically sober, stable for d/c with return precautions Discharge - Discharge Information Problems reviewed: Yes Clinical Impression/Diagnosis: Alcohol abuse Condition: Stable - Admission No - Follow up/Referral - Patient Discharge Instructions Patient Printed Discharge Instructions: DI for Alcohol Abuse Additional Instructions: Please return to the emergency department with any new or worsening symptoms or concerns. Please follow up with your primary care physician within 72 hours. - Post Discharge Activity
== END 2019-05-04 07:10 | disposition home or self-care (01) ==
LOC: JER 19:59
DX: F10.220 Alcohol dependence with intoxication, uncomplicated (principal); I10 Essential (primary) hypertension; E78.00 Pure hypercholesterolemia, unspecified; C45.9 Mesothelioma, unspecified; Z91.14 Patient's other noncompliance with medication regimen; Z59.0 Homelessness
CPT/HCPCS: 99282-25

== ENCOUNTER 2019-05-04 11:54 | Emergency (ER) | payer OTHER ==
[2019-05-04 12:02] VITALS: BP 117/59; PULSE 79; TEMP 98.1; BMI 31.5
--- NOTE | 2019-05-04 12:10 | PDOC ---
Documentation entered by Susu Gonazles SCRIBE, acting as scribe for Robson Ball MD. Robson Ball MD: This documentation has been prepared by the Janet pereira Nirvannie, SCRIBE, under my direction and personally reviewed by me in its entirety. I confirm that the documentation accurately reflects all work, treatment, procedures, and medical decision making performed by me. History of Present Illness - General Stated Complaint: BACK PAIN History Source: Patient Exam Limitations: No Limitations - History of Present Illness Initial Comments: 05/04/19 12:07 The patient is a 64 year old male with a significant past medical history of chronic alcohol abuse, mesothelioma, chronic back pain, and HTN (not compliant with medications) who presents to our Emergency Department via EMS for back pain. Patient notes his back pain is similar to his chronic pain. While in the Emergency Department, patient requests food. Patients last drink was yesterday. He denies any recent fevers, chills, headache or dizziness. He denies any recent nausea, vomiting, diarrhea or constipation. He denies any recent chest pain or shortness of breath. He denies any recent dysuria, frequency, urgency or hematuria. Allergy: NKDA. Fish Containing Products Past History - Past Medical History Allergies/Adverse Reactions: Allergies Allergy/AdvReac Type Severity Reaction Status Date / Time Fish Containing Products Allergy Mild Swelling Verified 05/03/19 20:16 No Known Drug Allergies Allergy Verified 05/03/19 20:16 Home Medications: Ambulatory Orders NK [No Known Home Medication] 04/12/19 Anemia: No Asthma: No Cancer: Yes (mesothelioma lung cancer) Cardiac Disorders: No CVA: No COPD: No CHF: No DVT: No Dementia: No Diabetes: No Dialysis: No GI Disorders: No Disorders: No HTN: Yes (non compliance) Hypercholesterolemia: Yes Kidney Stones: No Liver Disease: Yes (ETOH abuse) Psychiatric Problems: Yes (ETOH abuse) Seizures: No Thyroid Disease: No Lung CA: Yes (Mesothelioma) - Surgical History Abdominal Surgery: No Appendectomy: No Cardiac Surgery: No Cholecystectomy: No Lung Surgery: No Neurologic Surgery: No Orthopedic Surgery: No - Reproductive History Testicular Surgery: No - Immunization History Td Vaccination: Yes TDAP Vaccination: Yes Immunization Up to Date: Yes - Psycho Social/Smoking Cessation Hx Smoking Status: No Smoking History: Never smoked Have you smoked in the past 12 months: No Number of Cigarettes Smoked Daily: 0 If you are a former smoker, when did you quit?: 0 Cigars Per Day: 0 'Breaking Loose' booklet given: 09/22/17 Hx Alcohol Use: Yes Drug/Substance Use Hx: No Substance Use Type: Alcohol Hx Substance Use Treatment: Yes Review of Systems - Review of Systems Able to Perform ROS?: Yes Comments:: 05/04/19 12:09 CONSTITUTIONAL: No fever, no chills, no fatigue EYES: No visual changes ENT: No ear pain, no sore throat CARDIOVASCULAR: No chest pain, no palpitations RESPIRATORY: No cough, no SOB GI: No abdominal pain, no nausea, no vomiting, no constipation, no diarrhea GENITOURINARY: No dysuria, no frequency, no hematuria MUSKULOSKELETAL: +Back pain. No joint pain, no myalgias SKIN: No rash NEURO: No headache All Other Systems: Reviewed and Negative *Physical Exam - Vital Signs Last Vital Signs Temp Pulse Resp BP Pulse Ox 98.1 F 79 16 117/59 L 95 05/04/19 12:00 05/04/19 12:00 05/04/19 12:00 05/04/19 12:00 05/04/19 12:00 - Physical Exam Comments: 05/04/19 12:07 Normocephalic, atraumatic PERRLA, EOMI, no nystagmus CTA RRR Abdomen soft nondistended, No lower extremity edema Medical Decision Making - Medical Decision Making 05/04/19 12:08 64-year-old male with history of chronic alcohol abuse, mesothelioma, chronic back pain presents with low back pain that is similar in quality and quantity to his previous episodes. No acute issues are present. Patient's hemodynamically stable. Denies detox. Likely discharge. Discharge - Discharge Information Clinical Impression/Diagnosis: Alcohol abuse Alcohol dependence Qualifiers: Substance use status: unspecified alcohol-induced disorder Qualified Code(s): F10.29 - Alcohol dependence with unspecified alcohol-induced disorder Condition: Stable Disposition: HOME - Follow up/Referral Referrals: Jame Mackey MD [Staff Physician] - - Patient Discharge Instructions Patient Printed Discharge Instructions: DI for Alcohol Abuse - Post Discharge Activity
== END 2019-05-04 12:58 | disposition home or self-care (01) ==
LOC: JER 11:54
DX: M54.9 Dorsalgia, unspecified (principal); F10.10 Alcohol abuse, uncomplicated; G89.29 Other chronic pain; C45.7 Mesothelioma of other sites; Z91.013 Allergy to seafood; I10 Essential (primary) hypertension; Z91.14 Patient's other noncompliance with medication regimen
CPT/HCPCS: 99281-25

== ENCOUNTER 2019-05-04 17:10 | Emergency (ER) | payer OTHER ==
[2019-05-04 17:19] VITALS: BP 116/57; PULSE 74; TEMP 97.5; BMI 31.5
--- NOTE | 2019-05-04 17:36 | PDOC ---
History of Present Illness - General Chief Complaint: Back Pain Stated Complaint: INTOX Time Seen by Provider: 05/04/19 17:26 History Source: Patient Exam Limitations: Intoxication - History of Present Illness Initial Comments: Sunil De Leon is a 64 yo M w a hx of alcohol abuse and chronic back pain who presents to the [facility] er with back pain. This is his 3rd visit to the [facility] er today. He denies any acute changes since his discharge. He endorses chronic back pain with has not recently changed in character. When I interview him he makes flirtatious jokes with the women in the hallway who pass by. The patient requests to have a hot meal and states he does not want a sandwich. He reports that he is cold outside. His last drink was yesterday evening when he had vodka. Vijay hallucinations, agitation, chest pain, abdominal pain, fevers or chills. Past History - Past Medical History Allergies/Adverse Reactions: Allergies Allergy/AdvReac Type Severity Reaction Status Date / Time Fish Containing Products Allergy Mild Swelling Verified 05/04/19 17:15 No Known Drug Allergies Allergy Verified 05/04/19 17:15 Home Medications: Ambulatory Orders NK [No Known Home Medication] 04/12/19 Anemia: No Asthma: No Cancer: Yes (mesothelioma lung cancer) Cardiac Disorders: No CVA: No COPD: No CHF: No DVT: No Dementia: No Diabetes: No Dialysis: No GI Disorders: No Disorders: No HTN: Yes (non compliance) Hypercholesterolemia: Yes Kidney Stones: No Liver Disease: Yes (ETOH abuse) Psychiatric Problems: Yes (ETOH abuse) Seizures: No Thyroid Disease: No Lung CA: Yes (Mesothelioma) - Surgical History Abdominal Surgery: No Appendectomy: No Cardiac Surgery: No Cholecystectomy: No Lung Surgery: No Neurologic Surgery: No Orthopedic Surgery: No - Reproductive History Testicular Surgery: No - Immunization History Td Vaccination: Yes TDAP Vaccination: Yes Immunization Up to Date: Yes - Psycho Social/Smoking Cessation Hx Smoking Status: No Smoking History: Never smoked Have you smoked in the past 12 months: No Number of Cigarettes Smoked Daily: 0 If you are a former smoker, when did you quit?: 0 Cigars Per Day: 0 'Breaking Loose' booklet given: 09/22/17 Hx Alcohol Use: Yes Drug/Substance Use Hx: No Substance Use Type: Alcohol Hx Substance Use Treatment: Yes Review of Systems - Review of Systems Able to Perform ROS?: No (intoxication) *Physical Exam - Vital Signs Last Vital Signs Temp Pulse Resp BP Pulse Ox 97.5 F L 74 20 116/57 L 94 L 05/04/19 17:16 05/04/19 17:16 05/04/19 17:16 05/04/19 17:16 05/04/19 17:16 - Physical Exam General Appearance: Yes: Disheveled, Alcohol on Breath, Intoxicated, Obese HEENT: positive: DOUGLAS, Normal Voice. negative: Pharynx Normal, Scleral Icterus (R), Scleral Icterus (L) Neck: positive: Supple Respiratory/Chest: positive: Lungs Clear Cardiovascular: positive: Regular Rhythm, Regular Rate Vascular Pulses: Dorsalis-Pedis (R): 2+, Doralis-Pedis (L): 2+ Gastrointestinal/Abdominal: positive: Soft Rectal Exam: positive: deferred Musculoskeletal: positive: Normal Inspection, Decreased Range of Motion Extremity: positive: Normal Capillary Refill, Normal Inspection, Normal Range of Motion Integumentary: positive: Normal Color, Dry Neurologic: positive: Normal Mood/Affect, Respond to painful stimul Medical Decision Making - Medical Decision Making Sunil De Leon is a 64 yo M w a hx of alcohol abuse and chronic back pain who presents to the [facility] er with back pain. This is his 3rd visit to the [facility] er today. He denies any acute changes since his discharge. He endorses chronic back pain with has not recently changed in character. When I interview him he makes flirtatious jokes with the women in the hallway who pass by. The patient requests to have a hot meal and states he does not want a sandwich. He reports that he is cold outside. His last drink was yesterday evening when he had vodka. Vijay hallucinations, agitation, chest pain, abdominal pain, fevers or chills. Vital Signs Temp Pulse Resp BP Pulse Ox 97.5 F L 74 20 116/57 L 94 L 05/04/19 17:16 05/04/19 17:16 05/04/19 17:16 05/04/19 17:16 05/04/19 17:16 MDM: Patient presents intoxicated for 3rd time today with no back pain or acute changes. Plan DC Discharge - Discharge Information Problems reviewed: Yes Clinical Impression/Diagnosis: Alcohol intoxication Qualifiers: Complication of substance-induced condition: uncomplicated Qualified Code(s): F10.920 - Alcohol use, unspecified with intoxication, uncomplicated Condition: Stable Disposition: HOME - Admission No - Follow up/Referral - Patient Discharge Instructions Patient Printed Discharge Instructions: DI for Alcohol Abuse - Post Discharge Activity
--- NOTE | 2019-05-04 19:12 | PDOC ---
Attending Attestation - Resident Resident Name: MatjanineStevenson - ED Attending Attestation I have performed the following: I have examined & evaluated the patient, The case was reviewed & discussed with the resident, I agree w/resident's findings & plan, Exceptions are as noted - HPI HPI: 05/04/19 18:10 Agree with resident exam - Physicial Exam PE: 05/04/19 18:10 Agree with resident HPI - Medical Decision Making 05/04/19 18:10 64-year-old male well-known to this emergency department presents to the emergency department for the third time today requesting a meal. Patient also does not want to go back outside because it is cold. Patient has no medical complaints. Vitals are within normal limits.Exam is within normal limits. Patient is clinically stable for discharge. I discussed the physical exam findings, ancillary test results and final diagnoses with the patient. I answered all of the patient's questions. The patient was satisfied with the care received and felt comfortable with the discharge plan and treatment plan. The patient will call their primary care physician within 24 hours to arrange follow-up and will return to the Emergency Department with any new, persistent or worsening symptoms.
== END 2019-05-04 18:06 | disposition home or self-care (01) ==
LOC: JER 17:10
DX: F10.920 Alcohol use, unspecified with intoxication, uncomplicated (principal); G89.29 Other chronic pain; C45.7 Mesothelioma of other sites; I10 Essential (primary) hypertension; Z91.14 Patient's other noncompliance with medication regimen; Z91.013 Allergy to seafood; K76.9 Liver disease, unspecified
CPT/HCPCS: 99281-25

== ENCOUNTER 2019-05-19 15:01 | Emergency (ER) | payer OTHER ==
[2019-05-19 15:14] VITALS: BP 114/53; PULSE 99; TEMP 98.1; BMI 33.0
--- NOTE | 2019-05-19 16:00 | PDOC ---
History of Present Illness - General Chief Complaint: Alcohol intoxication Stated Complaint: BACK PAIN Time Seen by Provider: 05/19/19 16:00 History Source: Patient Exam Limitations: No Limitations - History of Present Illness Initial Comments: 05/19/19 16:02 Sunil De Leon is a 64 yo M w PMHx of alcohol abuse, CA, and chronic back pain who presents with back pain. Ongoing, unchanged pain over midline sacral region. Denies recent trauma to area. Able to ambulate without support. Denies fever, hallucinations, SOB, chest/AB pain, urinary/bowel movement changes. Past History - Past Medical History Allergies/Adverse Reactions: Allergies Allergy/AdvReac Type Severity Reaction Status Date / Time Fish Containing Products Allergy Mild Swelling Verified 05/19/19 15:12 No Known Drug Allergies Allergy Verified 05/19/19 15:12 Home Medications: Ambulatory Orders NK [No Known Home Medication] 04/12/19 Anemia: No Asthma: No Cancer: Yes (mesothelioma lung cancer) Cardiac Disorders: No CVA: No COPD: No CHF: No DVT: No Dementia: No Diabetes: No Dialysis: No GI Disorders: No Disorders: No HTN: Yes (non compliance) Hypercholesterolemia: Yes Kidney Stones: No Liver Disease: Yes (ETOH abuse) Psychiatric Problems: Yes (ETOH abuse) Seizures: No Thyroid Disease: No Lung CA: Yes (Mesothelioma) - Surgical History Abdominal Surgery: No Appendectomy: No Cardiac Surgery: No Cholecystectomy: No Lung Surgery: No Neurologic Surgery: No Orthopedic Surgery: No - Reproductive History Testicular Surgery: No - Immunization History Td Vaccination: Yes TDAP Vaccination: Yes Immunization Up to Date: Yes - Psycho Social/Smoking Cessation Hx Smoking Status: No Smoking History: Never smoked Have you smoked in the past 12 months: No Number of Cigarettes Smoked Daily: 0 If you are a former smoker, when did you quit?: 0 Cigars Per Day: 0 Information on smoking cessation initiated: No 'Breaking Loose' booklet given: 09/22/17 Hx Alcohol Use: Yes Drug/Substance Use Hx: No Substance Use Type: Alcohol Hx Substance Use Treatment: Yes Review of Systems - Review of Systems Able to Perform ROS?: No (alcohol intoxicated) *Physical Exam - Vital Signs Last Vital Signs Temp Pulse Resp BP Pulse Ox 98.1 F 99 H 20 114/53 L 90 L 05/19/19 15:12 05/19/19 15:12 05/19/19 15:12 05/19/19 15:12 05/19/19 15:12 - Physical Exam General Appearance: Yes: Nourished, Appropriately Dressed, Disheveled, Alcohol on Breath, Intoxicated HEENT: positive: Hearing Grossly Normal Respiratory/Chest: positive: Lungs Clear, Normal Breath Sounds. negative: Chest Tender Cardiovascular: positive: Regular Rhythm, Regular Rate, S1, S2. negative: Murmur Musculoskeletal: positive: Normal Inspection, Vertebral Tenderness (minimal tenderness midline sacral region, no lacerations/abrasions/step-offs/deformity) Integumentary: positive: Normal Color Neurologic: positive: Alert, Responsive, Other (slurred speech). negative: Sensory Deficit (no LE sensory deficit) Medical Decision Making - Medical Decision Making 05/19/19 16:26 Sunil De Leon is a 64 yo M w PMHx of alcohol abuse, CA, and chronic back pain who presents with sacral back pain likely MSK. No change in pain since last visit last month. Low concern for cauda equina (no loss of urinary/bowel movement/LE movement) vs spinal abscess (afebrile) vs fracture (no deformity). Pt denied imaging. Given lido patch. DC home Discharge - Discharge Information Problems reviewed: Yes Clinical Impression/Diagnosis: Sacral back pain Alcohol intoxication Qualifiers: Complication of substance-induced condition: uncomplicated Qualified Code(s): F10.920 - Alcohol use, unspecified with intoxication, uncomplicated Condition: Improved Disposition: HOME - Admission No - Follow up/Referral Referrals: Lily Cornejo [Primary Care Provider] - - Patient Discharge Instructions Patient Printed Discharge Instructions: DI for Low Back Pain Additional Instructions: You were seen for back pain and alcohol intoxication. You were given medication to treat your pain. Come back to the ED if you cannot urinate or pass bowel movements, cannot move your legs, or spike a fever. - Post Discharge Activity
[2019-05-19] MEDS ORDERED: LIDOCAINE 5% TOPICAL PATCH TP ONE (16:15)
[2019-05-19] MEDS ORDERED: LIDOCAINE 5% TOPICAL PATCH ONE (16:47)
[2019-05-19] MEDS ORDERED: LIDOCAINE PATCH REMOVAL MC SCH (22:00)
--- NOTE | 2019-05-20 01:43 | PDOC ---
Documentation entered by Susu Gonzales SCRIBE, acting as scribe for Monica Suh MD. Monica Suh MD: This documentation has been prepared by the Janet pereira Nirvannie, SCRIBE, under my direction and personally reviewed by me in its entirety. I confirm that the documentation accurately reflects all work, treatment, procedures, and medical decision making performed by me. Attending Attestation - Resident Resident Name: Bob Green - ED Attending Attestation I have performed the following: I have examined & evaluated the patient, The case was reviewed & discussed with the resident, I agree w/resident's findings & plan - HPI HPI: 05/19/19 18:43 64 yo M h/o etoh abuse, here with nearly daily visits, well known to myself and department, here with back pain same as chronic pain and alcohol intoxication. He denies any recent falls or LOC. - Physicial Exam PE: 05/20/19 01:42 awake alert poorly kempt. lungs clear bilat heart rrr no mrg gait normal. no midline spinal tenderness. - Medical Decision Making 05/20/19 01:43 plan lidoderm patch. dc diangosis etoh intox.
== END 2019-05-19 20:51 | disposition home or self-care (01) ==
LOC: JER 15:01
DX: M53.3 Sacrococcygeal disorders, not elsewhere classified (principal); F10.920 Alcohol use, unspecified with intoxication, uncomplicated; I10 Essential (primary) hypertension; Z91.14 Patient's other noncompliance with medication regimen; Z91.013 Allergy to seafood; G89.29 Other chronic pain
CPT/HCPCS: 99282-25

== ENCOUNTER 2019-05-22 01:29 | Emergency (ER) | payer OTHER ==
[2019-05-22 03:52] VITALS: BMI 31.1
--- NOTE | 2019-05-22 06:22 | PDOC ---
Attending Attestation - Resident Resident Name: DaniloKobi - ED Attending Attestation I have performed the following: I have examined & evaluated the patient, The case was reviewed & discussed with the resident, I agree w/resident's findings & plan - HPI HPI: 05/22/19 22:51 Pt is a known alcoholic who came to the ER for leg pain. No other complaints. - Physicial Exam PE: 05/22/19 22:51 Pt has alcohol on breath, but has been sobering in our ER for six hours. Heart and lungs normal abd soft NT ND no rashes No flank pain Legs: mild bilateral pitting edema No rahses and no cuts or injuries and no leg pain at this time Neruo A+O x 3 and NAD. - Medical Decision Making 05/22/19 22:53 Sign out patient to the day team. Oral challege with breakfast and then home.
--- NOTE | 2019-05-22 06:28 | PDOC ---
History of Present Illness - General Chief Complaint: Alcohol intoxication Stated Complaint: INTOX Time Seen by Provider: 05/22/19 06:21 History Source: Patient Exam Limitations: No Limitations - History of Present Illness Initial Comments: 05/22/19 06:28 presents with alcohol intoxication denies pain. negative ROS Physical exam within normal limits save for alcohol on breath. 05/22/19 07:06 Past History - Past Medical History Allergies/Adverse Reactions: Allergies Allergy/AdvReac Type Severity Reaction Status Date / Time Fish Containing Products Allergy Mild Swelling Verified 05/19/19 15:12 No Known Drug Allergies Allergy Verified 05/19/19 15:12 Home Medications: Ambulatory Orders NK [No Known Home Medication] 04/12/19 Anemia: No Asthma: No Cancer: Yes (mesothelioma lung cancer) Cardiac Disorders: No CVA: No COPD: No CHF: No DVT: No Dementia: No Diabetes: No Dialysis: No GI Disorders: No Disorders: No HTN: Yes (non compliance) Hypercholesterolemia: Yes Kidney Stones: No Liver Disease: Yes (ETOH abuse) Psychiatric Problems: Yes (ETOH abuse) Seizures: No Thyroid Disease: No Lung CA: Yes (Mesothelioma) - Surgical History Abdominal Surgery: No Appendectomy: No Cardiac Surgery: No Cholecystectomy: No Lung Surgery: No Neurologic Surgery: No Orthopedic Surgery: No - Reproductive History Testicular Surgery: No - Immunization History Td Vaccination: Yes TDAP Vaccination: Yes Immunization Up to Date: Yes - Psycho Social/Smoking Cessation Hx Smoking Status: No Smoking History: Never smoked Have you smoked in the past 12 months: No Number of Cigarettes Smoked Daily: 0 If you are a former smoker, when did you quit?: 0 Cigars Per Day: 0 Information on smoking cessation initiated: No 'Breaking Loose' booklet given: 09/22/17 Hx Alcohol Use: Yes Drug/Substance Use Hx: No Substance Use Type: Alcohol Hx Substance Use Treatment: Yes *Physical Exam - Vital Signs Last Vital Signs Temp Pulse Resp BP Pulse Ox 98.4 F 92 H 18 111/54 L 95 05/22/19 01:40 05/22/19 01:40 05/22/19 01:40 05/22/19 01:40 05/22/19 01:40 Discharge - Discharge Information Problems reviewed: Yes Clinical Impression/Diagnosis: Alcohol intoxication - Follow up/Referral Referrals: Lily Cornejo [Primary Care Provider] - - Patient Discharge Instructions Patient Printed Discharge Instructions: DI for Alcohol Abuse Additional Instructions: You were seen for your alcohol intoxication. Please stop drinking. Please follow up with your primary medical doctor within 1 week after discharge for follow up care and management. Please return to the emergency department if you have worsening symptoms or new concerning symptoms. Thank you. - Post Discharge Activity
--- NOTE | 2019-05-22 07:10 | PDOC ---
*Physical Exam - Vital Signs Last Vital Signs Temp Pulse Resp BP Pulse Ox 98.4 F 92 H 18 111/54 L 95 05/22/19 01:40 05/22/19 01:40 05/22/19 01:40 05/22/19 01:40 05/22/19 01:40 Medical Decision Making - Medical Decision Making Pt was signed out to me by resident Dr. Carrasco, who explained the presentation, ED course, any pending results, and needed interventions. Pt is currently stable and is lying comfortably. Pt is pending discharge once clinically sober. 05/22/19 07:08 Pt clinically sober and stable for discharge. No slurring of speech or nystagmus. Pt can ambulate. Strict return precautions provided with pt understanding. 05/22/19 07:48 Discharge - Discharge Information Problems reviewed: Yes Clinical Impression/Diagnosis: Alcohol intoxication Qualifiers: Complication of substance-induced condition: uncomplicated Qualified Code(s): F10.920 - Alcohol use, unspecified with intoxication, uncomplicated Condition: Improved Disposition: HOME - Admission No - Follow up/Referral Referrals: Lily Cornejo [Primary Care Provider] - - Patient Discharge Instructions Patient Printed Discharge Instructions: DI for Alcohol Abuse Additional Instructions: You were seen for your alcohol intoxication. Please stop drinking. Please follow up with your primary medical doctor within 1 week after discharge for follow up care and management. Please return to the emergency department if you have worsening symptoms or new concerning symptoms. Thank you. - Post Discharge Activity
[2019-05-22 07:20] VITALS: BP 105/67; PULSE 91; TEMP 98.6
== END 2019-05-22 07:57 | disposition home or self-care (01) ==
LOC: JER 01:29
DX: F10.220 Alcohol dependence with intoxication, uncomplicated (principal); I10 Essential (primary) hypertension; C45.9 Mesothelioma, unspecified; Z91.14 Patient's other noncompliance with medication regimen; Z59.0 Homelessness
CPT/HCPCS: 99281-25

== ENCOUNTER 2019-05-23 15:17 | Emergency (ER) | payer OTHER ==
[2019-05-23 15:30] VITALS: TEMP 98.3; BMI 30.4
--- NOTE | 2019-05-23 15:31 | PDOC ---
Rapid Medical Evaluation Time Seen by Provider: 05/23/19 15:26 Medical Evaluation: Allergies Allergy/AdvReac Type Severity Reaction Status Date / Time Fish Containing Products Allergy Mild Swelling Verified 05/19/19 15:12 No Known Drug Allergies Allergy Verified 05/19/19 15:12 05/23/19 15:26 Pt well known to the ED presents for alcohol intoxication. No other complaints Exam: alcohol on breath Orders: Nothing Pt to proceed to the ER for further evaluation Discharge Disposition - Diagnosis Alcohol intoxication - Referrals - Patient Instructions - Post Discharge Activity
--- NOTE | 2019-05-23 20:37 | PDOC ---
History of Present Illness - General Chief Complaint: Alcohol intoxication Stated Complaint: INTOX/BACK PAIN Time Seen by Provider: 05/23/19 15:26 History Source: Patient - History of Present Illness Initial Comments: 05/23/19 20:46 64-year-old undomiciled male BIBA with past medical history of alcohol abuse, cancer, chronic back pain complaining back pain. patient with frequent visits to the ER discharged this morning. denies trauma/fall, denies head injury.n. No signs of trauma noted patient was discharged from this ER early this morning for alcohol abuse and chronic pain. Patient is alert awake no slurred speech 05/23/19 20:47 Past History - Past Medical History Allergies/Adverse Reactions: Allergies Allergy/AdvReac Type Severity Reaction Status Date / Time Fish Containing Products Allergy Mild Swelling Verified 05/23/19 15:29 No Known Drug Allergies Allergy Verified 05/23/19 15:29 Home Medications: Ambulatory Orders NK [No Known Home Medication] 04/12/19 Anemia: No Asthma: No Cancer: Yes (mesothelioma lung cancer) Cardiac Disorders: No CVA: No COPD: No CHF: No DVT: No Dementia: No Diabetes: No Dialysis: No GI Disorders: No Disorders: No HTN: Yes (non compliance) Hypercholesterolemia: Yes Kidney Stones: No Liver Disease: Yes (ETOH abuse) Psychiatric Problems: Yes (ETOH abuse) Seizures: No Thyroid Disease: No Lung CA: Yes (Mesothelioma) - Surgical History Abdominal Surgery: No Appendectomy: No Cardiac Surgery: No Cholecystectomy: No Lung Surgery: No Neurologic Surgery: No Orthopedic Surgery: No - Reproductive History Testicular Surgery: No - Immunization History Td Vaccination: Yes TDAP Vaccination: Yes Immunization Up to Date: Yes - Psycho Social/Smoking Cessation Hx Smoking Status: No Smoking History: Former smoker Have you smoked in the past 12 months: No Number of Cigarettes Smoked Daily: 0 If you are a former smoker, when did you quit?: 0 Cigars Per Day: 0 Information on smoking cessation initiated: No 'Breaking Loose' booklet given: 09/22/17 Hx Alcohol Use: Yes Drug/Substance Use Hx: No Substance Use Type: Alcohol Hx Substance Use Treatment: Yes *Physical Exam - Vital Signs Last Vital Signs Temp Pulse Resp BP Pulse Ox 98.3 F 82 20 129/78 99 05/23/19 15:28 05/23/19 15:28 05/23/19 15:28 05/23/19 15:28 05/23/19 15:28 - Physical Exam General Appearance: Yes: Disheveled. No: Intoxicated HEENT: positive: Normal ENT Inspection, Other (normalcephalic) Respiratory/Chest: positive: Lungs Clear, Normal Breath Sounds, Other (upper airway transmitted sounds) Cardiovascular: positive: Regular Rhythm, Regular Rate Gastrointestinal/Abdominal: positive: Normal Bowel Sounds, Soft. negative: Tender Musculoskeletal: positive: Other (sacral area pain). negative: Vertebral Tenderness Integumentary: positive: Normal Color, Dry, Warm Neurologic: positive: Fully Oriented, Alert Medical Decision Making - Medical Decision Making 05/23/19 20:47 A: alcohol abuse; chronic back pain P: tylenol d/c Discharge - Discharge Information Problems reviewed: Yes Clinical Impression/Diagnosis: Alcohol abuse Back pain Qualifiers: Back pain location: low back pain Chronicity: acute Back pain laterality: unspecified Sciatica presence: without sciatica Qualified Code(s): M54.5 - Low back pain Condition: Fair Disposition: HOME - Follow up/Referral - Patient Discharge Instructions Patient Printed Discharge Instructions: Low Back Pain - Post Discharge Activity
[2019-05-23] MEDS ORDERED: ACETAMINOPHEN 500 MG TABLET (FP) PO ONE (20:47)
[2019-05-23] MEDS ORDERED: ACETAMINOPHEN 500 MG TABLET (FP) ONE (21:12)
[2019-05-23 22:19] VITALS: BP 140/80; PULSE 80
== END 2019-05-23 20:40 | disposition home or self-care (01) ==
LOC: JER 15:17
DX: F10.220 Alcohol dependence with intoxication, uncomplicated (principal); I10 Essential (primary) hypertension; C45.9 Mesothelioma, unspecified; M54.89 Other dorsalgia; G89.29 Other chronic pain; Z91.14 Patient's other noncompliance with medication regimen; Z59.0 Homelessness; Z91.013 Allergy to seafood
CPT/HCPCS: 99281-25

== ENCOUNTER 2019-05-25 13:04 | Emergency (ER) | payer OTHER ==
[2019-05-25 13:28] VITALS: BP 121/73; PULSE 97; TEMP 98.6; BMI 33.0
--- NOTE | 2019-05-25 14:34 | PDOC ---
History of Present Illness - General Chief Complaint: Alcohol intoxication Stated Complaint: Alcohol intoxication Time Seen by Provider: 05/25/19 14:23 History Source: Patient - History of Present Illness Initial Comments: 05/25/19 14:29 Patient is a 64M, well known to the ED, with history of etoh abuse, COPD and mesothelioma here today with alcohol intoxication. Patient states that he drank too much and was made to come in. Denies other complaints. Denies headache, neck pain, chest pain, shortness of breath, abdominal pain, dysuria and leg pain. Past History - Past Medical History Allergies/Adverse Reactions: Allergies Allergy/AdvReac Type Severity Reaction Status Date / Time Fish Containing Products Allergy Mild Swelling Verified 05/23/19 15:29 No Known Drug Allergies Allergy Verified 05/23/19 15:29 Home Medications: Ambulatory Orders NK [No Known Home Medication] 04/12/19 Anemia: No Asthma: No Cancer: Yes (mesothelioma lung cancer) Cardiac Disorders: No CVA: No COPD: No CHF: No DVT: No Dementia: No Diabetes: No Dialysis: No GI Disorders: No Disorders: No HTN: Yes (non compliance) Hypercholesterolemia: Yes Kidney Stones: No Liver Disease: Yes (ETOH abuse) Psychiatric Problems: Yes (ETOH abuse) Seizures: No Thyroid Disease: No Lung CA: Yes (Mesothelioma) - Surgical History Abdominal Surgery: No Appendectomy: No Cardiac Surgery: No Cholecystectomy: No Lung Surgery: No Neurologic Surgery: No Orthopedic Surgery: No - Reproductive History Testicular Surgery: No - Immunization History Td Vaccination: Yes TDAP Vaccination: Yes Immunization Up to Date: Yes - Psycho Social/Smoking Cessation Hx Smoking Status: No Smoking History: Never smoked Have you smoked in the past 12 months: No Number of Cigarettes Smoked Daily: 0 If you are a former smoker, when did you quit?: 0 Cigars Per Day: 0 Information on smoking cessation initiated: No 'Breaking Loose' booklet given: 09/22/17 Hx Alcohol Use: Yes Drug/Substance Use Hx: No Substance Use Type: Alcohol Hx Substance Use Treatment: Yes Review of Systems - Review of Systems Able to Perform ROS?: Yes Comments:: 05/25/19 14:33 GENERAL/CONSTITUTIONAL: No fever or chills. No weakness. HEAD, EYES, EARS, NOSE AND THROAT: No change in vision. No ear pain or discharge. No sore throat. CARDIOVASCULAR: No chest pain or shortness of breath RESPIRATORY: No cough, wheezing, or hemoptysis. GASTROINTESTINAL: No nausea, vomiting, diarrhea or constipation. GENITOURINARY: No dysuria, frequency, or change in urination. MUSCULOSKELETAL: No joint or muscle swelling or pain. No neck or back pain. SKIN: No rash NEUROLOGIC: No headache, vertigo, loss of consciousness, or change in strength/ sensation. HEMATOLOGIC/LYMPHATIC: No anemia, easy bleeding, or history of blood clots. ALLERGIC/IMMUNOLOGIC: No hives or skin allergy. *Physical Exam - Vital Signs Last Vital Signs Temp Pulse Resp BP Pulse Ox 98.6 F 97 H 18 121/73 96 05/25/19 13:17 05/25/19 13:17 05/25/19 13:17 05/25/19 13:17 05/25/19 13:17 - Physical Exam 05/25/19 14:34 GENERAL: Awake, alert, and fully oriented, in no acute distress HEAD: No signs of trauma, normocephalic, atraumatic EYES: PERRLA, EOMI, sclera anicteric, conjunctiva clear ENT: Auricles normal inspection, hearing grossly normal, nares patent, oropharynx clear without exudates. Moist mucosa NECK: Normal ROM, supple, no lymphadenopathy, JVD, or masses LUNGS: No distress, speaks full sentences, clear to auscultation bilaterally HEART: Regular rate and rhythm, normal S1 and S2, no murmurs, rubs or gallops, peripheral pulses normal and equal bilaterally. ABDOMEN: Soft, nontender, normoactive bowel sounds. No guarding, no rebound. No masses EXTREMITIES: Normal inspection, Normal range of motion, no edema. No clubbing or cyanosis. NEUROLOGICAL: Cranial nerves II through XII grossly intact. Slurred speech, no focal sensorimotor deficits SKIN: Warm, Dry, normal turgor, no rashes or lesions noted. Medical Decision Making - Medical Decision Making 05/25/19 14:34 Patient is 64M here today with alcohol intox. Vitals normal and stable. Will observe until clinically sober. 05/25/19 17:50 Patient walking with steady gait, discharged home. Discharge - Discharge Information Problems reviewed: Yes Clinical Impression/Diagnosis: Alcohol intoxication Condition: Good Disposition: HOME - Follow up/Referral - Patient Discharge Instructions Patient Printed Discharge Instructions: DI for Alcohol Abuse - Post Discharge Activity
--- NOTE | 2019-05-25 15:10 | PDOC ---
Documentation entered by Serenity Juárez SCRIBE, acting as scribe for Robson Ball MD. Robson Ball MD: This documentation has been prepared by the Marquita pereira Adrianna, SCRIBE, under my direction and personally reviewed by me in its entirety. I confirm that the documentation accurately reflects all work, treatment, procedures, and medical decision making performed by me. Attending Attestation - Resident Resident Name: Edilberto Lenz - ED Attending Attestation I have performed the following: I have examined & evaluated the patient, The case was reviewed & discussed with the resident, I agree w/resident's findings & plan, Exceptions are as noted - HPI HPI: The patient is a 64 year old male, with a significant PMH of HTN (non-compliant with meds), Mesothelioma, COPD, and ETOH abuse, who presents to the ED for evaluation of alcohol intoxication. Patient notes he drank too much today. He denies any acute complaints of pain at this time. Patient is stating he wants to eat. Allergies: Fish, NKDA Surgical History: None reported Social History: EtOH abuse - Physicial Exam PE: 05/25/19 15:08 Patient is awake and alert, alcohol is noted on breath, morbidly obese, disheveled, in no distress Normocephalic and atraumatic PERRLA, EOMI Neck is supple, no JVD Breath sounds distal bilaterally due to body habitus RRR No obvious extremity deformity AO x3 - Medical Decision Making 05/25/19 15:09 Patient is a 64-year-old male with history of alcohol abuse, hypertension, mesothelioma, COPD, well-known to this MD presents with signs and symptoms of acute alcohol intoxication. There is no evidence of trauma or toxic ingestion. Will observe to clinical sobriety. Likely discharge.
== END 2019-05-25 17:50 | disposition home or self-care (01) ==
LOC: JER 13:04
DX: F10.120 Alcohol abuse with intoxication, uncomplicated (principal); J44.9 Chronic obstructive pulmonary disease, unspecified; C45.7 Mesothelioma of other sites; Z91.013 Allergy to seafood; I10 Essential (primary) hypertension; Z91.14 Patient's other noncompliance with medication regimen
CPT/HCPCS: 99282-25

== ENCOUNTER 2019-05-25 19:25 | Emergency (ER) | payer OTHER ==
--- NOTE | 2019-05-25 19:44 | PDOC ---
Rapid Medical Evaluation Chief Complaint: Alcohol intoxication Time Seen by Provider: 05/25/19 19:39 Medical Evaluation: Allergies Allergy/AdvReac Type Severity Reaction Status Date / Time Fish Containing Products Allergy Mild Swelling Verified 05/23/19 15:29 No Known Drug Allergies Allergy Verified 05/23/19 15:29 12 19:39 I have performed a brief in-person evaluation of this patient. The patient presents with a chief complaint of: BIB EMS for intoxication, denies any injury Pertinent physical exam findings:Stable, mo intoxicated I have ordered the following:nothing The patient will proceed to the ED for further evaluation. Discharge Disposition - Diagnosis Alcohol intoxication Qualifiers: Complication of substance-induced condition: uncomplicated Qualified Code(s): F10.920 - Alcohol use, unspecified with intoxication, uncomplicated - Referrals - Patient Instructions - Post Discharge Activity
[2019-05-25 19:48] VITALS: BP 149/89; PULSE 85; TEMP 98.2; BMI 39.4
--- NOTE | 2019-05-25 22:58 | PDOC ---
Attending Attestation - Resident Resident Name: ChangFeliciano - ED Attending Attestation I have performed the following: I have examined & evaluated the patient, The case was reviewed & discussed with the resident, I agree w/resident's findings & plan - HPI HPI: 05/25/19 22:57 see resident hpi - Physicial Exam PE: 05/25/19 22:57 agree with resident exam - Medical Decision Making 05/25/19 22:57 64-year-old undomiciled male returns here after a multitude of visits in the emergency department He is well-known to staff and has no specific complaints at this time He is currently sitting up awake alert oriented x4 He will be discharged but be allowed to stay in our waiting area pending safe discharge in the morning during daylight hours due to low temperatures.
--- NOTE | 2019-05-25 22:58 | PDOC ---
History of Present Illness - General Chief Complaint: Alcohol intoxication Stated Complaint: INTOXICATED Time Seen by Provider: 05/25/19 19:39 - History of Present Illness Initial Comments: 05/25/19 22:58 64m well-known to staff brought by ems for homelessness and possible intoxicated state in low temperature weather. Patient sitting comfortably in chair, no complaints,. Past History - Past Medical History Allergies/Adverse Reactions: Allergies Allergy/AdvReac Type Severity Reaction Status Date / Time Fish Containing Products Allergy Mild Swelling Verified 05/25/19 19:44 No Known Drug Allergies Allergy Verified 05/25/19 19:44 Home Medications: Ambulatory Orders NK [No Known Home Medication] 04/12/19 Anemia: No Asthma: No Cancer: Yes (mesothelioma lung cancer) Cardiac Disorders: No CVA: No COPD: No CHF: No DVT: No Dementia: No Diabetes: No Dialysis: No GI Disorders: No Disorders: No HTN: Yes (non compliance) Hypercholesterolemia: Yes Kidney Stones: No Liver Disease: Yes (ETOH abuse) Psychiatric Problems: Yes (ETOH abuse) Seizures: No Thyroid Disease: No Lung CA: Yes (Mesothelioma) - Surgical History Abdominal Surgery: No Appendectomy: No Cardiac Surgery: No Cholecystectomy: No Lung Surgery: No Neurologic Surgery: No Orthopedic Surgery: No - Reproductive History Testicular Surgery: No - Immunization History Td Vaccination: Yes TDAP Vaccination: Yes Immunization Up to Date: Yes - Psycho Social/Smoking Cessation Hx Smoking Status: No Smoking History: Never smoked Have you smoked in the past 12 months: No Number of Cigarettes Smoked Daily: 0 If you are a former smoker, when did you quit?: 0 Cigars Per Day: 0 Information on smoking cessation initiated: No 'Breaking Loose' booklet given: 09/22/17 Hx Alcohol Use: Yes Drug/Substance Use Hx: No Substance Use Type: Alcohol Hx Substance Use Treatment: Yes Review of Systems - Review of Systems Able to Perform ROS?: Yes Is the patient limited Mauritian proficient: No Constitutional: No: Symptoms Reported HEENTM: No: Symptoms Reported Respiratory: No: Symptoms reported Cardiac (ROS): No: Symptoms Reported ABD/GI: No: Symptoms Reported : No: Symptoms Reported Musculoskeletal: No: Symptoms Reported All Other Systems: Reviewed and Negative *Physical Exam - Vital Signs Last Vital Signs Temp Pulse Resp BP Pulse Ox 98.2 F 85 21 H 149/89 100 05/25/19 19:36 05/25/19 19:36 05/25/19 19:36 05/25/19 19:36 05/25/19 19:36 - Physical Exam General Appearance: Yes: Nourished, Appropriately Dressed. No: Apparent Distress, Intoxicated HEENT: positive: EOMI, DOUGLAS, Normal ENT Inspection Respiratory/Chest: positive: Lungs Clear, Normal Breath Sounds. negative: Chest Tender, Respiratory Distress Cardiovascular: positive: Regular Rhythm, Regular Rate, S1, S2 Extremity: positive: Normal Capillary Refill, Normal Inspection, Normal Range of Motion Neurologic: positive: Fully Oriented, Alert, Normal Mood/Affect, Normal Response Medical Decision Making - Medical Decision Making 05/25/19 22:59 64m homeless male found by ems in the cold, out in the streets. Will be discharged but will allow him to stay him in out waiting room until tomorrow morning. Discharge - Discharge Information Problems reviewed: Yes Clinical Impression/Diagnosis: Homelessness Condition: Stable Disposition: HOME - Admission No - Follow up/Referral - Patient Discharge Instructions Patient Printed Discharge Instructions: DI for General Condition Additional Instructions: Come back to the emergency department for any new, worsening or concerning symptom. - Post Discharge Activity
== END 2019-05-25 23:10 | disposition home or self-care (01) ==
LOC: JER 19:25
DX: Z59.0 Homelessness (principal); F10.10 Alcohol abuse, uncomplicated; Z87.891 Personal history of nicotine dependence; C45.7 Mesothelioma of other sites; I10 Essential (primary) hypertension
CPT/HCPCS: 99281-25

== ENCOUNTER 2019-05-26 07:26 | Inpatient (IN) | payer OTHER ==
[2019-05-26 07:39] VITALS: BMI 34.4
--- NOTE | 2019-05-26 08:39 | PDOC ---
Attending Attestation - Resident Resident Name: Bianca Frausto - HPI HPI: 05/26/19 11:54 pt presents to the ED complaining of generalized malaise, chest pain and feeling "off balance". Denies fever or cough. Patient is a chronic alcoholic who is very well known to me. Also complains of back pain, which is chronic for him, but does not complain of leg weakness. Patient was discharged from the ED last night, but remained in the waiting room because he was unable to walk. 05/26/19 15:44 - Physicial Exam PE: 05/26/19 11:59 Agree with residents exam. Patient is alert and oriented and in no acute distress. + tongue fasiculations. + 1 pitting edema to bilateral legs. - Medical Decision Making 05/26/19 12:15 Pt presents to the ED complaining of chest pain and ataxia. Denies other new complaints. + tongue fasiculations on exam. Ct head and C spine are negative for acute injury. Patient is extremely ataxic on exam, and reports inability to walk. Differential includes CVA, Wernike-Korsakoff, other intracranial lesions. Will order MRI and neurology consult and admit to medicine for continued work up. 05/26/19 15:44 05/26/19 15:45
--- NOTE | 2019-05-26 08:54 | PDOC ---
History of Present Illness - General Chief Complaint: Edema Stated Complaint: CHEST PAIN,FEET AND HAND SWELLING Time Seen by Provider: 05/26/19 08:26 - History of Present Illness Initial Comments: 05/26/19 08:49 HPI: 64 y/o undomiciled M with hx of EtOH abuse with multiple ED visits for intoxication, COPD, mesothelioma, chronic back pain who was DCd from ED late last night representing with back pain and swelling of hands and feet. He reports being drunk yesterday and not remembering what happened. But when he became sober, he was complaining of his back. He states he had a hx of a sacral fx and usually comes to the ED for pain control. Pain is low back and is usually improved with robaxin. He also reports chest pain that is his usual baseline chest pain without radiation. Reports swelling hands and feet that is worse than normal. Denies SOB. He also reports vague right occipital headache, denies neck pain. Reports unknown fall last night. He also says "I have the shakes and need librium." Last drink was last night at unknown time. He has no other complaints PMHx: as noted above ROS: as noted SHx: Denies tobacco use; no alcohol use; no rec drugs Allergies: NKDA ROS: GENERAL/CONSTITUTIONAL: No fever or chills. No weakness. HEAD, EYES, EARS, NOSE AND THROAT: No change in vision. No ear pain or discharge. No sore throat. CARDIOVASCULAR: +chest pain; no shortness of breath RESPIRATORY: No cough, wheezing, or hemoptysis. GASTROINTESTINAL: No nausea, vomiting, diarrhea or constipation. GENITOURINARY: No dysuria, frequency, or change in urination. MUSCULOSKELETAL: No joint or muscle swelling or pain. No neck or back pain. SKIN: No rash NEUROLOGIC: +headache; vertigo, or change in strength/sensation. ENDOCRINE: No increased thirst. No abnormal weight change HEMATOLOGIC/LYMPHATIC: No anemia, easy bleeding, or history of blood clots. ALLERGIC/IMMUNOLOGIC: No hives or skin allergy. PE: GENERAL: Awake, alert, and fully oriented, no acute distress HEAD: No signs of trauma, normocephalic, atraumatic EYES: EOMI, sclera anicteric, conjunctiva clear ENT: Auricles normal inspection, hearing grossly normal, nares patent, oropharynx clear without exudates. dry mucosa. tongue fasciculations NECK: Normal ROM, no lymphadenopathy LUNGS: No increased work of breathing, symmetrical chest rise, clear to auscultation bilaterally, no wheezes, crackles or rhonchi HEART: tachycardic, and regular rhythm, normal S1 and S2, no murmurs, peripheral pulses 2+ and equal bilaterally. 2+ BL LE pitting edema ABDOMEN: Soft, protuberant, nondistended, nontender, normoactive bowel sounds. No guarding, no rebound. No masses. No CVAT EXTREMITIES: Normal inspection, Normal range of motion. No clubbing or cyanosis. Tremulous UEs NEUROLOGICAL: FTN ataxia, unable to assess to gait due to unsteadiness SKIN: Warm, Dry, normal turgor, no rashes or lesions noted Past History - Past Medical History Allergies/Adverse Reactions: Allergies Allergy/AdvReac Type Severity Reaction Status Date / Time Fish Containing Products Allergy Mild Swelling Verified 05/26/19 07:37 No Known Drug Allergies Allergy Verified 05/26/19 07:37 Home Medications: Ambulatory Orders NK [No Known Home Medication] 04/12/19 Anemia: No Asthma: No Cancer: Yes (mesothelioma lung cancer) Cardiac Disorders: No CVA: No COPD: No CHF: No DVT: No Dementia: No Diabetes: No Dialysis: No GI Disorders: No Disorders: No HTN: Yes (non compliance) Hypercholesterolemia: Yes Kidney Stones: No Liver Disease: Yes (ETOH abuse) Psychiatric Problems: Yes (ETOH abuse) Seizures: No Thyroid Disease: No Lung CA: Yes (Mesothelioma) - Surgical History Abdominal Surgery: No Appendectomy: No Cardiac Surgery: No Cholecystectomy: No Lung Surgery: No Neurologic Surgery: No Orthopedic Surgery: No - Reproductive History Testicular Surgery: No - Immunization History Td Vaccination: Yes TDAP Vaccination: Yes Immunization Up to Date: Yes - Psycho Social/Smoking Cessation Hx Smoking Status: No Smoking History: Former smoker Have you smoked in the past 12 months: No Number of Cigarettes Smoked Daily: 0 If you are a former smoker, when did you quit?: 0 Cigars Per Day: 0 Information on smoking cessation initiated: No 'Breaking Loose' booklet given: 09/22/17 Hx Alcohol Use: Yes Drug/Substance Use Hx: No Substance Use Type: Alcohol Hx Substance Use Treatment: Yes *Physical Exam - Vital Signs Last Vital Signs Temp Pulse Resp BP Pulse Ox 98.2 F 100 H 20 151/101 H 100 05/26/19 07:37 05/26/19 07:37 05/26/19 07:37 05/26/19 07:37 05/26/19 07:37 ED Treatment Course - LABORATORY CBC & Chemistry Diagram: 05/26/19 09:30 05/26/19 09:30 Medical Decision Making - Medical Decision Making 05/26/19 09:32 64 y/o undomiciled M with hx of EtOH abuse with multiple ED visits for intoxication, COPD, mesothelioma, chronic back pain who was DCd from ED late last night representing with back pain and swelling of hands and feet, chest pain, and GARCIA. BP 151/100 HR 100; PE with tongue fasciculations, tremulousness, LE edema -cbc, cmp, lipase, mg, phos, ua, ekg, cxr, ct head, ct c spine -banana bag, ofirmev, robixan, librium 05/26/19 09:33 patient refusing cxr 05/26/19 10:42 ekg: nsr, nl intervals, unchanged from recent ekg replete Mg 05/26/19 15:41 on re-examination patient with complaints of "unsteadiness on my feet" FTN ataxia present; patient unable to walk; reports is detoxing really bad and needs help taking care of himself and wants to go to a [facility] admitted to tele inpatient under Dr Pettit Neuro Dr Houser consulted; MRI brain w/out con ordered Discharge - Discharge Information Problems reviewed: Yes Clinical Impression/Diagnosis: Ataxia Condition: Guarded - Admission Yes - Follow up/Referral - Patient Discharge Instructions - Post Discharge Activity
[2019-05-26] MEDS ORDERED: ACETAMINOPHEN 1000 MG/100 ML VIAL (NON FORMULARY) IVPB ONE (08:57)
[2019-05-26] MEDS ORDERED: FOLIC ACID INJECTION - 1 MG, THIAMINE HCL 100 MG, MULTIVIT INJECTION ADULT 10 ML in SOD... IVPB ONE ×2 (08:57→16:02)
[2019-05-26] MEDS ORDERED: METHOCARBAMOL 500 MG TABLET PO ONE (08:57)
[2019-05-26] MEDS ORDERED: chlordiazePOXIDE HCL 25 MG CAPSULE PO ONE ×2 (08:57→14:05)
[2019-05-26] MEDS ORDERED: ACETAMINOPHEN INJECTION 100 ML IVPB ONE (09:09)
[2019-05-26] MEDS ORDERED: chlordiazePOXIDE HCL 10 MG CAPSULE ONE ×4 (09:09→23:51)
[2019-05-26] MEDS ORDERED: METHOCARBAMOL 500 MG TABLET ONE (09:09)
[2019-05-26 09:38] LABS: BASO % 1.2 % (0-2.0); EOS % 1.9 % (0-4.5); HEMOGLOBIN 9.5 GM/dL (11.7-16.9); LYMPH % 22.6 % (8-40); MCH 25.6 pg (25.7-33.7); MCHC 31.8 g/dl (32.0-35.9); MEAN CELL VOLUME 80.6 fl (80-96); MEAN PLT VOLUME 7.4 fl (7.5-11.1); MONO % 6.1 % (3.8-10.2); NEUT % 68.2 % (42.8-82.8); PLATELET COUNT 252 K/MM3 (134-434); RBC 3.72 M/mm3 (4.00-5.60); RDW 19.9 % (11.9-15.9); WHITE BLOOD COUNT 5.5 K/mm3 (4.0-10.0)
[2019-05-26 09:59] LABS: PROTHROMBIN TIME (PATIENT) 11.8 SEC (9.7-13.0)
[2019-05-26 10:02] LABS: ACTIVATED PTT 31.6 SECONDS (25.2-36.5)
[2019-05-26 10:11] LABS: ALBUMIN 3.2 g/dl (3.4-5.0); ALK PHOS 136 U/L (45-117); ANION GAP 8 MMOL/L (8-16); BILIRUBIN,TOTAL 0.8 mg/dL (0.2-1); BLOOD UREA NITROGEN 7.9 mg/dL (7-18); CALCIUM 8.1 mg/dL (8.5-10.1); CHLORIDE 105 mmol/L (98-107); CO2 29 mmol/L (21-32); CREATININE 0.5 mg/dL (0.55-1.3); GLUCOSE,RANDOM 77 mg/dL (74-106); LIPASE 39 U/L (73-393); MAGNESIUM 1.3 mg/dL (1.8-2.4); PHOSPHOROUS 3.4 mg/dL (2.5-4.9); POTASSIUM 3.4 mmol/L (3.5-5.1); SGOT/AST 29 U/L (15-37); SGPT/ALT 24 U/L (13-61); SODIUM 143 mmol/L (136-145); TOT PROT 6.4 g/dl (6.4-8.2)
[2019-05-26] MEDS ORDERED: MAGNESIUM SULF 50% (8.12 MEQ/2 ML-1 GM VIAL) IVPB ONE (10:18)
[2019-05-26] MEDS ORDERED: chlordiazePOXIDE 5 MG CAPSULE PO PRN (16:01)
--- NOTE | 2019-05-26 16:11 | HP ---
<Aida Cheng - Last Filed: 05/26/19 16:22> Hospitalist Medicine Admission 64 y/o undomiciled M with hx of EtOH abuse with multiple ED visits for intoxication, COPD, mesothelioma, chronic back pain who was discharged from ED late last night, who presents today with back, knee pain, and ataxia per ED staff. Last drink two days ago, has frequent ED visits for alcohol withdrawal and pain in UE, LE. "Just give me my librium!" Pt refused to give additional information. Per ED staff, he has been ataxic, which is not his baseline. No other sx. Neuro was consulted for ataxia, brain MRI, PT ordered. States that he is unable to walk. Lives by [facility]. PAST MEDICAL HISTORY: alcohol use disorder mesothelioma HTN PAST SURGICAL HISTORY: IVC filter Social History: Smoking: denies Alcohol: 1-2 pints vodka daily, first drink at 16 Drugs: denies Pt is homeless, stays at [facility] Allergies Fish Containing Products Allergy (Mild, Verified 05/26/19 07:37) Swelling HOME MEDICATIONS: Home Medications Medication Instructions Recorded NK [No Known Home Medication] 04/12/19 PHYSICAL EXAMINATION Vital Signs - 24 hr 05/26/19 05/26/19 07:37 09:56 Temperature 98.2 F Pulse Rate 100 H Respiratory 20 Rate Blood Pressure 151/101 H O2 Sat by Pulse 100 95 Oximetry (%) Physical Examination -refused by pt Laboratory Results - last 24 hr 05/26/19 05/26/19 05/26/19 09:30 09:30 09:30 WBC 5.5 RBC 3.72 L Hgb 9.5 L Hct 30.0 L MCV 80.6 MCH 25.6 L D MCHC 31.8 L RDW 19.9 H Plt Count 252 D MPV 7.4 L Absolute Neuts (auto) 3.7 Neutrophils % 68.2 Lymphocytes % 22.6 Monocytes % 6.1 Eosinophils % 1.9 Basophils % 1.2 Nucleated RBC % 0 PT with INR 11.80 INR 1.00 PTT (Actin FS) 31.6 Sodium 143 Potassium 3.4 L Chloride 105 Carbon Dioxide 29 Anion Gap 8 BUN 7.9 Creatinine 0.5 L Est GFR (CKD-EPI)AfAm 132.73 Est GFR (CKD-EPI)NonAf 114.52 Random Glucose 77 Calcium 8.1 L Phosphorus 3.4 Magnesium 1.3 L Total Bilirubin 0.8 AST 29 ALT 24 Alkaline Phosphatase 136 H Creatine Kinase 82 Troponin I < 0.02 Total Protein 6.4 Albumin 3.2 L Lipase 39 L Imaging 05/26/19: C-spine CT: no acute fx, compression deformity or subluxation, no prevertebral soft tissue swelling 05/26/19: CTH: loss of volume in brain parenchyma, w/ involutional changes, no evidence of other acute abnormalities. small retention cyst or polyp in L maxilary sinus. no bleed ASSESSMENT/PLAN: 64 y/o undomiciled M with hx of EtOH abuse with multiple ED visits for intoxication, COPD, mesothelioma, chronic back pain who was discharged from ED late last night, who presents today with back, knee pain, and ataxia per ED staff. #Ataxia, likely 2/2 alcohol withdrawal -however will r/o other etiologies -head CT (-) for acute change -f/u brain MRI w/o contrast -neuro consulted: Dr. Houser; case discussed -banana bag, thiamine, folate, librium protocol (Day1) -PT -tele monitoring -fall precautions #COPD, hx mesothelioma -currently not in exacerbation -duonebs RQID, nebs PRN #back, knee pain -c/w tylenol PRN for pain, no acute trauma signs -PT #F/E/N IV NS 100 cc/hr, banana bag continue to follow lytes reg diet #PPX DVT: SCD's #Dispo admit to tele will need placement in SNF, interested in [facility] however has AMA previously w/ attempts on placement Visit type - Emergency Visit Emergency Visit: Yes Care time: The patient presented to the Emergency Department on the above date and was hospitalized for further evaluation of their emergent condition. - New Patient This patient is new to me today: No - Critical Care Critical Care patient: No <Kobi Pettit - Last Filed: 05/27/19 17:43> Seen and examined; please see resident note for further discussion. I agree with the historical and PE findings and assessment/plan aside from as supplemented by myself. Personally verified all lucero historical and PE findings alongside diagnostics. Discussed at length with [facility] team and indicated subspecialty services. Mr. De Leon is well known to the hospital due to his frequent visits. He presents this time with difficulty walking that he states is secondary to his EtOH consumption. His presenting symptoms resolving. No CP, SOB, etc. Denies any focal deficits. No recent injuries. No myelopathic objective findings. No s/ s wernicke's encephalopathy. Tells us that he is now homeless. Postulates that he is having difficulty standing due to EtOH consumption. 10 sys ROS done and neagtive aside from HPI PMH, PSH, FH, SH reviewed VS, labs, imaging stable NAD AAO resting in bed [facility] RRR s1/2 NT ND +BS CN2-12 wnl, no FND, states his ambulation is at baseline but that he doeens't want to ambulate Normal mood, flat to labile affect, poor insight and judgment, per my assessment he has capacity tele, ekg, and admission labs reviewed A/P: Patient presented with percieved difficulty walking after being seen in the ER. He has no acute neuro findings and he reveals to us that he no longer has a place to live and that he came to the hospital secondary to this. He tells us that he refuses further imaging and any potassium supplements via any route. This is evidenced on prior admits, as well. Will clear with psych and have social work see him. No s/s DTs; continue on librium. Has been disruptive with nursing staff. Problems (acutely) are: -Acute alcohol intoxication -Ataxia, resolved (secondary to above) -Alcohol abuse/detox (refuses transfer to inpatient detox, will consider a list of outside facilities) -Hypokalemia (chronic, chronically refuses any replacement) -HX Mesothelioma (no current acute issues; OP followup as planned) Full Code ATTENDING PHYSICIAN STATEMENT I saw and evaluated the patient. I reviewed the resident's note and discussed the case with the resident. I agree with the resident's findings and plan as documented. SUBJECTIVE: OBJECTIVE: ASSESSMENT AND PLAN:
[2019-05-26] MEDS ORDERED: ALBUTEROL SO4 0.083% IH SOL 2.5 MG/3 ML VIAL.NEB. NEB PRN (16:18)
[2019-05-26] MEDS ORDERED: ACETAMINOPHEN 325 MG TABLET (FP) PO PRN (16:22)
[2019-05-26] MEDS: SODIUM CHLORIDE 1,000 ML IV SCH (16:25)
[2019-05-26] MEDS ORDERED: chlordiazePOXIDE 5 MG CAPSULE ONE ×2 (17:40→23:51)
[2019-05-26] MEDS ORDERED: FOLIC ACID 1 MG TABLET (FP) ONE (17:40)
[2019-05-26] MEDS: chlordiazePOXIDE HCL 25 MG CAPSULE PO SCH ×2 (17:41→23:56)
[2019-05-26] MEDS: FOLIC ACID 1 MG TABLET (FP) PO SCH (17:41)
[2019-05-26 17:59] LABS: URINE APPEARANCE CLEAR; URINE BILIRUBIN NEGATIVE (NEGATIVE); URINE COLOR YELLOW; URINE GLUCOSE (UA) NEGATIVE (NEGATIVE); URINE KETONE NEGATIVE (NEGATIVE); URINE LEUK ESTERASE NEGATIVE (NEGATIVE); URINE NITRITE NEGATIVE (NEGATIVE); URINE PROTEIN NEGATIVE (NEGATIVE); URINE UROBILINOGEN 0.2 mg/dL (0.2-1.0)
[2019-05-26] MEDS: ALBUTEROL SO4 2.5/IPRATROPIUM 0.5 INH SOL 3 ML VIAL.NEB. NEB SCH (20:33)
[2019-05-27] MEDS: chlordiazePOXIDE HCL 25 MG CAPSULE PO SCH ×2 (05:33→10:54)
[2019-05-27 06:45] LABS: BASO % 0.4 % (0-2.0); EOS % 1.4 % (0-4.5); HEMATOCRIT 31.2 % (35.4-49); HEMOGLOBIN 10.1 GM/dL (11.7-16.9); LYMPH % 17.9 % (8-40); MCH 25.8 pg (25.7-33.7); MCHC 32.5 g/dl (32.0-35.9); MEAN CELL VOLUME 79.4 fl (80-96); MEAN PLT VOLUME 7.8 fl (7.5-11.1); MONO % 7.4 % (3.8-10.2); NEUT % 72.9 % (42.8-82.8); PLATELET COUNT 222 K/MM3 (134-434); RBC 3.93 M/mm3 (4.00-5.60); RDW 20.5 % (11.9-15.9); WHITE BLOOD COUNT 7.6 K/mm3 (4.0-10.0)
[2019-05-27 07:19] LABS: BILIRUBIN,TOTAL 1.7 mg/dL (0.2-1); BLOOD UREA NITROGEN 5.6 mg/dL (7-18); CALCIUM 8.1 mg/dL (8.5-10.1); CREATININE 0.5 mg/dL (0.55-1.3); MAGNESIUM 1.6 mg/dL (1.8-2.4); PHOSPHOROUS 3.1 mg/dL (2.5-4.9); TOT PROT 6.4 g/dl (6.4-8.2)
[2019-05-27] MEDS ORDERED: POTASSIUM CHLORIDE TABS 20 MEQ TABLET.ER (FP) PO ONE (07:27)
[2019-05-27] MEDS ORDERED: MAGNESIUM OXIDE 400 MG TABLET (FP) PO ONE (07:28)
[2019-05-27] MEDS ORDERED: KCL 10 MEQ IVPB 10 MEQ/100 ML INFUS.BAG IVPB SCH (07:30)
[2019-05-27] MEDS: ALBUTEROL SO4 2.5/IPRATROPIUM 0.5 INH SOL 3 ML VIAL.NEB. NEB SCH ×4 (09:03→20:50)
--- NOTE | 2019-05-27 09:19 | CONSULT ---
Consult - text type - Consultation Consultation Note: Neurology HISTORY OF PRESENT ILLNES 64 y/o M with hx of EtOH abuse with multiple ED visits for intoxication, COPD, mesothelioma, chronic back pain who was discharged from ED night prior to admission, who presented day of admission with back, knee pain, and ataxia per ED staff. Last drink two days prior to admission, has frequent ED visits for alcohol withdrawal and pain in UE, LE. "Just give me my librium!" Pt refused to give additional information. Per ED staff, he has been ataxic, which is not his baseline. No other sx. Neuro was consulted for ataxia, brain MRI ordered not yet completed. Head CT completed with retention cysts in maxillary sinus, no acute pathology. Cervical CT completed, no evidence of acute fracture; evidence of multiple facet anthropathy, sceleortic lesion on C7 as seen in prior CT. States that he is unable to walk. Lives by [employer]. Labs indicated low magnesium 1.6 and hypokalemia 3.0. Patient aawake and alert and I discussed with nurse, patient has been noncompliant throughout his admission. Discussed with him having MRI completed but he indicated that he did not want to do it.. Therefore, we'll adjust to noncontrast head CT and asked nurse to have completed later today. Patient indicated that he would complete it since CAT scan would be shorter and use her to tolerate but has been refusing medications during this admission PAST MEDICAL HISTORY: alcohol use disorder mesothelioma HTN PAST SURGICAL HISTORY: IVC filter Social History: Smoking: denies Alcohol: 1-2 pints vodka daily, first drink at 16 Drugs: denies Pt is homeless, stays at [facility] Allergies Fish Containing Products Allergy (Mild, Verified 05/26/19 07:37) Swelling HOME MEDICATIONS: Ambulatory Orders NK [No Known Home Medication] 04/12/19 Active Medications Acetaminophen (Tylenol -) 650 mg PO Q6H PRN PRN Reason: PAIN LEVEL 7 - 10 Albuterol Sulfate (Ventolin 0.083% Nebulizer Soln -) 1 amp NEB Q4H PRN PRN Reason: SHORT OF BREATH/WHEEZING Albuterol/Ipratropium (Duoneb -) 1 amp NEB RQID CAREY Last Admin: 05/27/19 09:03 Dose: Not Given Chlordiazepoxide HCl (Librium -) 25 mg PO [id number] CAREY Stop: 05/27/19 11:01 Last Admin: 05/27/19 05:33 Dose: 25 mg Chlordiazepoxide HCl (Librium -) 15 mg PO [id number] [facility] Stop: 05/28/19 11:01 Chlordiazepoxide HCl (Librium -) 10 mg PO [id number] [facility] Stop: 05/29/19 11:01 Chlordiazepoxide HCl (Librium -) 5 mg PO Q6H PRN PRN Reason: AGITATION Folic Acid (Folic Acid -) 1 mg PO DAILY [facility] Last Admin: 05/26/19 17:41 Dose: 1 mg Sodium Chloride (Normal Saline -) 1,000 mls @ 100 mls/hr IV ASDIR [facility] Last Admin: 05/26/19 16:25 Dose: 100 mls/hr Folic Acid 1 mg/ Thiamine HCl 100 mg/ Multivitamins/Minerals 10 ml/ Sodium Chloride 1,000 mls @ 125 mls/hr IVPB ONCE ONE Stop: 05/27/19 17:59 Thiamine HCl (Vitamin B1 -) 100 mg PO DAILY [facility] PHYSICAL EXAMINATION Vital Signs Period Temp Pulse Resp BP Sys/Jang Pulse Ox Last 24 Hr 97.9 F-98.6 F 75-92 16-24 150-174/70-110 92-96 Physical Examination Gen: Awake, alert, responds to questions appropriately Card: RRR, nml S1,S2 Resp: Normal symmetric effort, lungs clear to auscultation Abdomen: Soft, nontender, bowel sounds active Head atraumatic and normocephalic CN: PERRL, EOMI intact, no apparent facial droop, no abnormalities in facial sensation, palate elevates, uvula and tongue midline Motor: Moves extremities grossly, refusing confrontation testing Sensory: Intact to light touch Gait: refused CBCD WBC 7.6 K/mm3 (4.0-10.0) 05/27/19 05:50 RBC 3.93 M/mm3 (4.00-5.60) L 05/27/19 05:50 Hgb 10.1 GM/dL (11.7-16.9) L 05/27/19 05:50 Hct 31.2 % (35.4-49) L 05/27/19 05:50 MCV 79.4 fl (80-96) L 05/27/19 05:50 MCHC 32.5 g/dl (32.0-35.9) 05/27/19 05:50 RDW 20.5 % (11.9-15.9) H 05/27/19 05:50 Plt Count 222 K/MM3 (134-434) 05/27/19 05:50 MPV 7.8 fl (7.5-11.1) 05/27/19 05:50 CMP Sodium 137 mmol/L (136-145) 05/27/19 05:50 Potassium 3.0 mmol/L (3.5-5.1) L 05/27/19 05:50 Chloride 100 mmol/L (98-107) 05/27/19 05:50 Carbon Dioxide 28 mmol/L (21-32) 05/27/19 05:50 Anion Gap 9 MMOL/L (8-16) 05/27/19 05:50 BUN 5.6 mg/dL (7-18) L 05/27/19 05:50 Creatinine 0.5 mg/dL (0.55-1.3) L 05/27/19 05:50 Random Glucose 81 mg/dL (74-106) 05/27/19 05:50 Calcium 8.1 mg/dL (8.5-10.1) L 05/27/19 05:50 Total Bilirubin 1.7 mg/dL (0.2-1) H 05/27/19 05:50 AST 28 U/L (15-37) 05/27/19 05:50 ALT 21 U/L (13-61) 05/27/19 05:50 Alkaline Phosphatase 136 U/L (45-117) H 05/27/19 05:50 Total Protein 6.4 g/dl (6.4-8.2) 05/27/19 05:50 Albumin 3.0 g/dl (3.4-5.0) L 05/27/19 05:50 CARDIAC ENZYMES Creatine Kinase 82 U/L (26-308) 05/26/19 09:30 Troponin I < 0.02 ng/ml (0.00-0.05) 05/26/19 09:30 Imaging 05/26/19: C-spine CT: no acute fx, compression deformity or subluxation, no prevertebral soft tissue swelling 12/12/19: CTH: loss of volume in brain parenchyma, w/ involutional changes, no evidence of other acute abnormalities. small retention cyst or polyp in L maxilary sinus. no bleed ASSESSMENT/PLAN: 64 y/o M with hx of EtOH abuse with multiple ED visits for intoxication, COPD, mesothelioma, chronic back pain who was discharged from ED night prior to admission, who presentd day of admission with back, knee pain, and ataxia per ED staff. Last drink two days prior to admission, has frequent ED visits for alcohol withdrawal and pain in UE, LE. "Just give me my librium!" Pt refused to give additional information. Per ED staff, he has been ataxic, which is not his baseline. No other sx. Neuro was consulted for ataxia, brain MRI ordered not yet completed. Head CT completed with retention cysts in maxillary sinus, no acute pathology. Cervical CT completed, no evidence of acute fracture; evidence of multiple facet anthropathy, sceleortic lesion on C7 as seen in prior CT. States that he is unable to walk. Lives by [employer]. Labs indicated low magnesium 1.6 and hypokalemia 3.0. Patient aawake and alert and I discussed with nurse, patient has been noncompliant throughout his admission. Discussed with him having MRI completed but he indicated that he did not want to do it.. Therefore, we'll adjust to noncontrast head CT and asked nurse to have completed later today. Patient indicated that he would complete it since CAT scan would be shorter and use her to tolerate but has been refusing medications during this admission. IF CT head negative, unlikely to be CVA and patient himself attributes ataxia to Etoh. Substance abuse consult recommended, mmaintain adequate hydration, Librium as needed, monitor for withdrawal. monitor blood pressure, maintain normotensive range, replenish potassium as patient will allow. Fall precautions, physical therapy as tolerated.
--- NOTE | 2019-05-27 09:35 | CONSULT ---
Consult - text type - Consultation Consultation Note: Neurology Hospitalist Medicine HISTORY OF PRESENT ILLNESS: 64 y/o M with hx of EtOH abuse with multiple ED visits for intoxication, COPD, mesothelioma, chronic back pain who was discharged from ED late last night, who presents today with back, knee pain, and ataxia per ED staff. Last drink two days ago, has frequent ED visits for alcohol withdrawal and pain in UE, LE. "Just give me my librium!" Pt refused to give additional information. Per ED staff, he has been ataxic, which is not his baseline. No other sx. Neuro was consulted for ataxia, brain MRI. Head CT completed, no evidence of acute intracranial hemorrhage, noted for small retention cyst or polyp in the left maxillar sinus. Cervical CT completed, multiple facet join arthropathy, States that he is unable to walk. Lives by [employer]. PAST MEDICAL HISTORY: alcohol use disorder mesothelioma HTN PAST SURGICAL HISTORY: IVC filter Social History: Smoking: denies Alcohol: 1-2 pints vodka daily, first drink at 16 Drugs: denies Pt is homeless, stays at [employer] Allergies Fish Containing Products Allergy (Mild, Verified 05/26/19 07:37) Swelling Ambulatory Orders NK [No Known Home Medication] 04/12/19 Active Medications Acetaminophen (Tylenol -) 650 mg PO Q6H PRN PRN Reason: PAIN LEVEL 7 - 10 Albuterol Sulfate (Ventolin 0.083% Nebulizer Soln -) 1 amp NEB Q4H PRN PRN Reason: SHORT OF BREATH/WHEEZING Albuterol/Ipratropium (Duoneb -) 1 amp NEB RQID [facility] Last Admin: 05/27/19 09:03 Dose: Not Given Chlordiazepoxide HCl (Librium -) 25 mg PO [id number] [facility] Stop: 05/27/19 11:01 Last Admin: 05/27/19 05:33 Dose: 25 mg Chlordiazepoxide HCl (Librium -) 15 mg PO [id number] [facility] Stop: 05/28/19 11:01 Chlordiazepoxide HCl (Librium -) 10 mg PO [id number] [facility] Stop: 05/29/19 11:01 Chlordiazepoxide HCl (Librium -) 5 mg PO Q6H PRN PRN Reason: AGITATION Folic Acid (Folic Acid -) 1 mg PO DAILY [facility] Last Admin: 05/26/19 17:41 Dose: 1 mg Sodium Chloride (Normal Saline -) 1,000 mls @ 100 mls/hr IV ASDIR [facility] Last Admin: 05/26/19 16:25 Dose: 100 mls/hr Folic Acid 1 mg/ Thiamine HCl 100 mg/ Multivitamins/Minerals 10 ml/ Sodium Chloride 1,000 mls @ 125 mls/hr IVPB ONCE ONE Stop: 05/27/19 17:59 Thiamine HCl (Vitamin B1 -) 100 mg PO DAILY [facility] PHYSICAL EXAMINATION Vital Signs Period Temp Pulse Resp BP Sys/Jang Pulse Ox Last 24 Hr 97.9 F-98.6 F 75-92 16-24 150-174/70-110 92-96 Physical Examination -refused by pt CBCD WBC 7.6 K/mm3 (4.0-10.0) 05/27/19 05:50 RBC 3.93 M/mm3 (4.00-5.60) L 05/27/19 05:50 Hgb 10.1 GM/dL (11.7-16.9) L 05/27/19 05:50 Hct 31.2 % (35.4-49) L 05/27/19 05:50 MCV 79.4 fl (80-96) L 05/27/19 05:50 MCHC 32.5 g/dl (32.0-35.9) 05/27/19 05:50 RDW 20.5 % (11.9-15.9) H 05/27/19 05:50 Plt Count 222 K/MM3 (134-434) 05/27/19 05:50 MPV 7.8 fl (7.5-11.1) 05/27/19 05:50 CMP Sodium 137 mmol/L (136-145) 05/27/19 05:50 Potassium 3.0 mmol/L (3.5-5.1) L 05/27/19 05:50 Chloride 100 mmol/L (98-107) 05/27/19 05:50 Carbon Dioxide 28 mmol/L (21-32) 05/27/19 05:50 Anion Gap 9 MMOL/L (8-16) 05/27/19 05:50 BUN 5.6 mg/dL (7-18) L 05/27/19 05:50 Creatinine 0.5 mg/dL (0.55-1.3) L 05/27/19 05:50 Random Glucose 81 mg/dL (74-106) 05/27/19 05:50 Calcium 8.1 mg/dL (8.5-10.1) L 05/27/19 05:50 Total Bilirubin 1.7 mg/dL (0.2-1) H 05/27/19 05:50 AST 28 U/L (15-37) 05/27/19 05:50 ALT 21 U/L (13-61) 05/27/19 05:50 Alkaline Phosphatase 136 U/L (45-117) H 05/27/19 05:50 Total Protein 6.4 g/dl (6.4-8.2) 05/27/19 05:50 Albumin 3.0 g/dl (3.4-5.0) L 05/27/19 05:50 CARDIAC ENZYMES Creatine Kinase 82 U/L (26-308) 05/26/19 09:30 Troponin I < 0.02 ng/ml (0.00-0.05) 05/26/19 09:30 Imaging 05/26/19: C-spine CT: no acute fx, compression deformity or subluxation, no prevertebral soft tissue swelling 05/26/19: CTH: loss of volume in brain parenchyma, w/ involutional changes, no evidence of other acute abnormalities. small retention cyst or polyp in L maxilary sinus. no bleed ASSESSMENT/PLAN:
--- NOTE | 2019-05-27 09:40 | PN ---
Progress Note (short form) - Note Progress Note: Hospitalist Medicine Resting in bed, does not want to be disturbed. Nauseated from potassium. Refusing brain MRI Vitals 05/27/19 05/27/19 01:30 04:00 Temperature 98.1 F Pulse Rate 78 Respiratory 18 Rate Blood Pressure 150/70 Physical Exam pt refused Laboratory Tests 05/27/19 05/27/19 05:50 05:50 WBC 7.6 Hgb 10.1 L Hct 31.2 L Plt Count 222 Sodium 137 Potassium 3.0 L Chloride 100 Carbon Dioxide 28 BUN 5.6 L Creatinine 0.5 L Magnesium 1.6 L AST 28 ALT 21 Alkaline Phosphatase 136 H Albumin 3.0 L Micro 05/26/19: UCx - pending Imaging 05/26/19: C-spine CT: no acute fx, compression deformity or subluxation, no prevertebral soft tissue swelling 05/26/19: CTH: loss of volume in brain parenchyma, w/ involutional changes, no evidence of other acute abnormalities. small retention cyst or polyp in L maxilary sinus. no bleed Assessment/Plan 64 y/o undomiciled M with hx of EtOH abuse with multiple ED visits for intoxication, COPD, mesothelioma, chronic back pain who was discharged from ED late last night, who presented with back, knee pain, and ataxia per ED staff. #Ataxia, likely 2/2 alcohol withdrawal -however will r/o other etiologies -head CT (-) for acute change -refused brain MRI -neuro consulted: Dr. Houser; case discussed -psych consult: Dr. Saha -banana bag, thiamine, folate, librium protocol -PT -tele monitoring -fall precautions #COPD, hx mesothelioma -currently not in exacerbation -duonebs RQID, nebs PRN; refusing tx #back, knee pain -c/w tylenol PRN for pain, no acute trauma signs -PT #hypokalemia, hypomagnesemia likely 2/2 alc use d/o -refusing repletion; nauseated #F/E/N IV NS 100 cc/hr, banana bag continue to follow lytes reg diet #PPX DVT: SCD's #Dispo monitored in tele, however refusing all tx . anticipate d/c 24hrs if noncompliant await psych, PT per ED discussions, will need placement in SNF, interested in [facility] however has AMA previously w/ attempts on placement <Aida Cheng - Last Filed: 05/27/19 15:44> - Note Progress Note: Seen and examined; please see resident note for further discussion. I agree with the historical and PE findings and assessment/plan aside from as supplemented by myself. Personally verified all lucero historical and PE findings alongside diagnostics. Discusseed at length with [facility] team and indicated subspecialty services. Mr. De Leon is well known to the hospital due to his frequent visits. He presents this time with difficulty walking that he states is secondary to his EtOH consumption. Concern of an underlying process causing this lead to his admission and neuro consultation. He refuses imaging and any form of K replacement. He is averse to counseling. He states he [place] to [facility] [place] [facility] and is not sure about ever going to inpatient rehab. He was seen and cleared by psychiatry. He had no issues with ambulation. He tells me and Dr. Cheng that he is without a current place to stay so social work will provide referral to halfway. Overall, he has medically benefitted maximally from this hospitalization. There is no underlying issues acutely and the initial ataxia was likely secondary to EtOH abuse. The patient is stable from a medical perspective for discharge. Referrals will be made but he has been decidedly averse to any followup in the past. I expect him to return, unfortunately, given the chronic nature of his issues. Agree with resident DC planning Appreciate subspecialty consultations Please see DC summary for full DCS VS, labs, imaging stable NAD AAO resting in bed [facility] RRR s1/2 NT ND +BS CN2-12 wnl, no FND, states his ambulation is at baseline but that he doeens't want to ambulate Normal mood, flat to labile affect, poor insight and judgment, per my assessment he has capacity tele, ekg, and admission labs reviewed A/P: Patient presented with perceived difficulty walking after being seen in the ER. He has no acute neuro findings and he reveals to us that he no longer has a place to live and that he came to the hospital secondary to this. He tells us that he refuses further imaging and any potassium supplements via any route. This is evidenced on prior admits, as well. Will clear with psych and have social work see him. No s/s DTs; continue on librium. Has been disruptive with nursing staff. Problems (acutely) are: -Acute alcohol intoxication (resolved) -Ataxia, resolved (secondary to above) -Alcohol abuse/detox (refuses transfer to inpatient detox, will consider a list of outside facilities) -Hypokalemia (chronic, chronically refuses any replacement) Full Code <Kobi Pettit - Last Filed: 05/27/19 17:41>
[2019-05-27 09:54] LABS: ANISOCYTOSIS 1+; PLATELET ESTIMATE NORMAL; TARGET CELLS 1+
[2019-05-27] MEDS ORDERED: THIAMINE HCL 100 MG TABLET (FP) PO SCH (10:00)
[2019-05-27] MEDS ORDERED: FOLIC ACID INJECTION - 1 MG, THIAMINE HCL 100 MG, MULTIVIT INJECTION ADULT 10 ML in SOD... IVPB ONE (10:00)
[2019-05-27] MEDS: FOLIC ACID 1 MG TABLET (FP) PO SCH (10:54)
--- NOTE | 2019-05-27 13:21 | EKG ---
Test Reason : Blood Pressure : / mmHG Vent. Rate : 081 BPM Atrial Rate : 081 BPM P-R Int : 150 ms QRS Dur : 088 ms QT Int : 410 ms P-R-T Axes : 048 -29 036 degrees QTc Int : 476 ms NORMAL SINUS RHYTHM POSSIBLE ANTERIOR INFARCT , AGE UNDETERMINED ABNORMAL ECG WHEN COMPARED WITH ECG OF 13-APR-2019 07:37, NO SIGNIFICANT CHANGE WAS FOUND Confirmed by RAY VENEGAS MD ([id number]) on 05/27/2019 1:20:58 PM Referred By: Confirmed By:RAY VENEGAS MD
--- NOTE | 2019-05-27 15:46 | DS ---
Physical Exam: SUBJECTIVE: Patient seen . Refused examination. OBJECTIVE: Vital Signs Period Temp Pulse Resp BP Sys/Jang Pulse Ox Last 24 Hr 97.9 F-98.6 F 75-92 16-24 150-174/70-110 92-96 PHYSICAL EXAM Refusing LABS Laboratory Results - last 24 hr 05/26/19 05/27/19 05/27/19 17:50 05:50 05:50 WBC 7.6 RBC 3.93 L Hgb 10.1 L Hct 31.2 L MCV 79.4 L MCH 25.8 MCHC 32.5 RDW 20.5 H Plt Count 222 MPV 7.8 Absolute Neuts (auto) 5.5 Neutrophils % 72.9 Lymphocytes % 17.9 D Monocytes % 7.4 Eosinophils % 1.4 Basophils % 0.4 Nucleated RBC % 0 Hypochromia 0 Platelet Estimate Normal Polychromasia 1+ Poikilocytosis 0 Anisocytosis 1+ Target Cells 1+ Sodium 137 Potassium 3.0 L Chloride 100 Carbon Dioxide 28 Anion Gap 9 BUN 5.6 L Creatinine 0.5 L Est GFR (CKD-EPI)AfAm 132.73 Est GFR (CKD-EPI)NonAf 114.52 Random Glucose 81 Hemoglobin A1c % Calcium 8.1 L Phosphorus 3.1 Magnesium 1.6 L Total Bilirubin 1.7 H AST 28 ALT 21 Alkaline Phosphatase 136 H Total Protein 6.4 Albumin 3.0 L Urine Color Yellow Urine Appearance Clear Urine pH 7.0 Ur Specific [place] 1.012 Urine Protein Negative Urine Glucose (UA) Negative Urine Ketones Negative Urine Blood Negative Urine Nitrite Negative Urine Bilirubin Negative Urine Urobilinogen 0.2 Ur Leukocyte Esterase Negative 05/27/19 05:50 WBC RBC Hgb Hct MCV MCH MCHC RDW Plt Count MPV Absolute Neuts (auto) Neutrophils % Lymphocytes % Monocytes % Eosinophils % Basophils % Nucleated RBC % Hypochromia Platelet Estimate Polychromasia Poikilocytosis Anisocytosis Target Cells Sodium Potassium Chloride Carbon Dioxide Anion Gap BUN Creatinine Est GFR (CKD-EPI)AfAm Est GFR (CKD-EPI)NonAf Random Glucose Hemoglobin A1c % 4.6 Calcium Phosphorus Magnesium Total Bilirubin AST ALT Alkaline Phosphatase Total Protein Albumin Urine Color Urine Appearance Urine pH Ur Specific [place] Urine Protein Urine Glucose (UA) Urine Ketones Urine Blood Urine Nitrite Urine Bilirubin Urine Urobilinogen Ur Leukocyte Esterase Micro 05/26/19: UCx - pending Imaging 05/26/19: C-spine CT: no acute fx, compression deformity or subluxation, no prevertebral soft tissue swelling 05/26/19: CTH: loss of volume in brain parenchyma, w/ involutional changes, no evidence of other acute abnormalities. small retention cyst or polyp in L maxilary sinus. no bleed HOSPITAL COURSE: Date of Admission:05/26/19 Date of Discharge: 05/27/19 64 y/o undomiciled M with hx of EtOH abuse with multiple ED visits for intoxication, COPD, mesothelioma, chronic back pain who was discharged from ED late last night, who presented with back, knee pain, and ataxia per ED staff. #Ataxia, likely 2/2 alcohol withdrawal -however will r/o other etiologies -head CT (-) for acute change -refused brain MRI -neuro consulted: Dr. Houser; case discussed -psych consult: Dr. Saha; pt refusing all care, thus will d/c will not f/u -was tx during stay w banana bag, thiamine, folate, librium protocol -PT -tele monitoring -fall precautions #COPD, hx mesothelioma -currently not in exacerbation -duonebs RQID, nebs PRN; refusing tx #back, knee pain -c/w tylenol PRN for pain, no acute trauma signs -PT; pt refused #Dispo discharge; pt is not complying refusing all testing refusing follow up Minutes to complete discharge: 44 <Aida Cheng - Last Filed: 05/27/19 15:47> Physical Exam: Overall agree with resident hospital course; please see documentation from earlier regarding history and exam. Mr. De Leon is well known to the hospital due to his frequent visits. He presents this time with difficulty walking that he states is secondary to his EtOH consumption. Concern of an underlying process causing this lead to his admission and neuro consultation. He refuses imaging and any form of K replacement. He is averse to counseling. He [facility] and is not sure about ever going to inpatient rehab. He was seen and cleared by psychiatry. He had no issues with ambulation. He tells me and Dr. Cheng that he is without a current place to stay so social work will provide referral to assisted. Overall, he has medically benefitted maximally from this hospitalization. There is no underlying issues acutely and the initial ataxia was likely secondary to EtOH abuse. The patient is stable from a medical perspective for discharge. Referrals will be made but he has been decidedly averse to any followup in the past. I expect him to return, unfortunately, given the chronic nature of his issues. Agree with resident DC planning Appreciate subspecialty consultations <Kobi Pettit - Last Filed: 05/27/19 17:34> Discharge Summary Problems reviewed: Yes Reason For Visit: ATAXIA Current Active Problems Ataxia (Acute) Sacral back pain (Acute) - Home Medications Comprehensive Discharge Medication List: Ambulatory Orders NK [No Known Home Medication] 04/12/19 <Aida Cheng - Last Filed: 05/27/19 15:47> Current Active Problems Ataxia (Acute) Sacral back pain (Acute) - Home Medications Comprehensive Discharge Medication List: Ambulatory Orders NK [No Known Home Medication] 04/12/19 <Kobi Pettit - Last Filed: 05/27/19 17:34> Condition: Guarded - Instructions Diet, Activity, Other Instructions: You were in the hospital because you were off balance. You had a CT scan of your head that was normal. It was likely that this was from your alcohol withdrawal. You were treated with a librium taper. You were seen by a neurologist who recommended that you have an MRI done of your brain. You did not want to have this done. You also did not want further testing. You are being discharged home. Care It is important to cut back on drinking for your health. It is also important to lose weight and eat a healthy diet. Follow up Please follow up with Dr. Iyer in the resident clinic - in the next 3-5 days to discuss your visit Please follow with Dr. Houser - the neurologist who saw you in the hospital - 1 week Referrals: Toni Iyer MD [Staff Physician] - 05/30/19 Sam Houser MD [Staff Physician] - 1 Week Disposition: HOME This patient is new to me today: No Emergency Visit: No Critical Care patient: No - Discharge Referral Referred to [facility] Med [facility] No <Aida Cheng - Last Filed: 05/27/19 15:47> ATTENDING PHYSICIAN STATEMENT I saw and evaluated the patient. I reviewed the resident's note and discussed the case with the resident. I agree with the resident's findings and plan as documented. SUBJECTIVE: OBJECTIVE: ASSESSMENT AND PLAN: <Kobi Pettit - Last Filed: 05/27/19 17:34>
--- NOTE | 2019-05-27 16:29 | CON.PSY ---
Psychiatry Consult Chief Complaint: 64 Tip iold male with a history of Alcohol Dependence, Homeless seen for Psych eval. aptient can bec demanding with staff. Symptoms: reports: Conduct Problems, Oppositionalism - Previous Psychiatric Treatment Outpatient: None Inpatient: None - Previous Substance Abuse Treatment Inpatient: One prior admission - Reason for Previous Treatment Reason for Previous Treatment: Alcohol Abuse - Current Medications Current Medications: Active Medications Acetaminophen (Tylenol -) 650 mg PO Q6H PRN PRN Reason: PAIN LEVEL 7 - 10 Albuterol Sulfate (Ventolin 0.083% Nebulizer Soln -) 1 amp NEB Q4H PRN PRN Reason: SHORT OF BREATH/WHEEZING Albuterol/Ipratropium (Duoneb -) 1 amp NEB RQID [facility] Last Admin: 05/27/19 11:42 Dose: Not Given Chlordiazepoxide HCl (Librium -) 15 mg PO [id number] [facility] Stop: 05/28/19 11:01 Chlordiazepoxide HCl (Librium -) 10 mg PO [id number] [facility] Stop: 05/29/19 11:01 Chlordiazepoxide HCl (Librium -) 5 mg PO Q6H PRN PRN Reason: AGITATION Folic Acid (Folic Acid -) 1 mg PO DAILY [facility] Last Admin: 05/27/19 10:54 Dose: 1 mg Sodium Chloride (Normal Saline -) 1,000 mls @ 100 mls/hr IV ASDIR [facility] Last Admin: 05/26/19 16:25 Dose: 100 mls/hr Folic Acid 1 mg/ Thiamine HCl 100 mg/ Multivitamins/Minerals 10 ml/ Sodium Chloride 1,000 mls @ 125 mls/hr IVPB ONCE ONE Stop: 05/27/19 17:59 Thiamine HCl (Vitamin B1 -) 100 mg PO DAILY [facility] Last Admin: 05/27/19 10:54 Dose: 100 mg - Allergies Allergies: Allergies Allergy/AdvReac Type Severity Reaction Status Date / Time Fish Containing Products Allergy Mild Swelling Verified 05/26/19 07:37 No Known Drug Allergies Allergy Verified 05/26/19 07:37 - Current Living Status Usual Living Arrangement: Alone - Current Mental Status Evaluation Appearance: Disheveled Attitude: Guarded - Affect Affect: Full Range Appropriateness: Appropriate to Content - Mood Mood: Irritable - Speech/Language Expressive: Coherent - Psychomotor Activity Psychomotor Activity: Normal - Thought Process Thought Process: Intact - Thought Content Hallucinations: Absent Delusions: Absent - Self Perception Self Perception: No Impairment - Cognition Attention: Alert Orientation: Time Memory, Immediate Recall: Intact Memory, Short Term: 3/3 Memory, Remote with Promptin/3 - Concentration Serial Sevens Intact: No Simple Calculations Intact: Yes - Abstraction Proverb Interpretation: Intact Judgement: Minimally Impaired - Insight Insight: Intact - Impulse Control Impulse Control: Minimally Impaired - Suicidal Ideation Suicidal Ideation: No - Homicidal Ideation Homicidal Ideation: No Assessment/Plan 1) Patient is not suicidal at this time. 2) Discharge when medically stable. 3) No acute Psych illness. ? Anti Social personality Disorder.
[2019-05-27] MEDS: SODIUM CHLORIDE 1,000 ML IV SCH (21:09)
[2019-05-27] MEDS: chlordiazePOXIDE 5 MG CAPSULE PO SCH (23:16)
[2019-05-28 03:52] VITALS: TEMP 98
[2019-05-28 04:15] VITALS: BP 132/74
[2019-05-28] MEDS: chlordiazePOXIDE 5 MG CAPSULE PO SCH (05:59)
[2019-05-28] MEDS: ALBUTEROL SO4 2.5/IPRATROPIUM 0.5 INH SOL 3 ML VIAL.NEB. NEB SCH (08:02)
[2019-05-28 08:23] VITALS: PULSE 72
[2019-05-28] MEDS ORDERED: chlordiazePOXIDE 5 MG CAPSULE PO SCH (17:00)
--- NOTE | 2019-05-28 18:00 | PN ---
Progress Note (short form) - Note Progress Note: Patient was to be discharged yesterday but patient refused and stayed the night. Per RN patient left at 9am this morning. Left before i was able to see patient See D/C summary for hospital course. Visit type - Emergency Visit Emergency Visit: Yes ED Registration Date: 05/26/19 Care time: The patient presented to the Emergency Department on the above date and was hospitalized for further evaluation of their emergent condition. - New Patient This patient is new to me today: Yes Date on this admission: 05/28/19 - Critical Care Critical Care patient: No
== END 2019-05-28 09:03 | disposition home or self-care (01) | DRG 775 ==
LOC: JER 07:26 → JERBED 15:43 → J2W 05-27 01:21
PROVIDERS: ADMIT Internal Medicine; ATTEND Internal Medicine
PROC: HZ2ZZZZ Detoxification Services for Substance Abuse Treatment (ICD-10-PCS; principal; 2019-05-26)
DX: F10.239 Alcohol dependence with withdrawal, unspecified (principal); R27.0 Ataxia, unspecified; J44.9 Chronic obstructive pulmonary disease, unspecified; M54.5 Low back pain; E83.42 Hypomagnesemia; E87.6 Hypokalemia; M54.9 Dorsalgia, unspecified; I10 Essential (primary) hypertension; R26.81 Unsteadiness on feet; M25.569 Pain in unspecified knee; Z59.0 Homelessness; Z85.89 Personal history of malignant neoplasm of other organs and systems; Z87.891 Personal history of nicotine dependence
CPT/HCPCS: 36415; 70450-TC; 72125-TC; 80053; 81003; 82550; 83036; 83690; 83735; 84100; 84484; 85025; 85610; 85730; 87086; 93005; 93010; 94640; 97116-GP; 97161-GP; 99284-25; J0131; J7030

== ENCOUNTER 2019-05-30 16:43 | Emergency (ER) | payer OTHER ==
--- NOTE | 2019-05-30 17:14 | PDOC ---
History of Present Illness - General Chief Complaint: Pain Stated Complaint: BACK,KNEE PAIN Time Seen by Provider: 05/30/19 17:01 History Source: Patient - History of Present Illness Timing/Duration: other Past History - Past Medical History Allergies/Adverse Reactions: Allergies Allergy/AdvReac Type Severity Reaction Status Date / Time Fish Containing Products Allergy Mild Swelling Verified 05/30/19 16:55 No Known Drug Allergies Allergy Verified 05/30/19 16:55 Home Medications: Ambulatory Orders NK [No Known Home Medication] 04/12/19 Anemia: No Asthma: No Cancer: Yes (mesothelioma lung cancer) Cardiac Disorders: No CVA: No COPD: No CHF: No DVT: No Dementia: No Diabetes: No Dialysis: No GI Disorders: No Disorders: No HTN: Yes (non compliance) Hypercholesterolemia: Yes Kidney Stones: No Liver Disease: Yes (ETOH abuse) Psychiatric Problems: Yes (ETOH abuse) Seizures: No Thyroid Disease: No Lung CA: Yes (Mesothelioma) - Surgical History Abdominal Surgery: No Appendectomy: No Cardiac Surgery: No Cholecystectomy: No Lung Surgery: No Neurologic Surgery: No Orthopedic Surgery: No - Reproductive History Testicular Surgery: No - Immunization History Td Vaccination: Yes TDAP Vaccination: Yes Immunization Up to Date: Yes - Psycho Social/Smoking Cessation Hx Smoking Status: No Smoking History: Never smoked Have you smoked in the past 12 months: No Number of Cigarettes Smoked Daily: 0 If you are a former smoker, when did you quit?: 0 Cigars Per Day: 0 'Breaking Loose' booklet given: 09/22/17 Hx Alcohol Use: Yes Drug/Substance Use Hx: Yes Substance Use Type: Alcohol Hx Substance Use Treatment: Yes Review of Systems - Review of Systems Constitutional: No: Fever Respiratory: No: Cough, Shortness of Breath Cardiac (ROS): No: Chest Pain ABD/GI: No: Constipated, Diarrhea, Nausea, Vomiting, Abdominal cramping : No: Dysuria Neurological: No: Headache, Tingling, Ataxia, Dizziness *Physical Exam - Vital Signs Last Vital Signs Temp Pulse Resp BP Pulse Ox 97.9 F 88 18 95/59 L 96 05/30/19 16:55 05/30/19 16:55 05/30/19 16:55 05/30/19 16:55 05/30/19 16:55 - Physical Exam General Appearance: Yes: Appropriately Dressed, Other (mostly somelent) HEENT: positive: Normal Voice Neck: positive: Supple Respiratory/Chest: positive: Lungs Clear, Normal Breath Sounds. negative: Respiratory Distress Cardiovascular: positive: Regular Rate, S1, S2 Gastrointestinal/Abdominal: positive: Soft. negative: Tender Integumentary: positive: Dry, Warm Neurologic: positive: Fully Oriented Medical Decision Making - Medical Decision Making 05/30/19 17:11 64-year-old undomiciled male, very well-known to R staff w/ history of alcohol abuse with numerous ED visits for intoxication, COPD, mesothelioma, chronic back pain brought in by EMS after found intoxicated on street today. Patient mostly somnolent but easily arousable and able to give some history. Denies any trauma and no acute medical issues. see exam ETOH intox Stable, mostly somnolent No e/o trauma -sobriety -watch for s/o withdrawal 05/30/19 18:50 Signed out to MICHAEL Casanova pending sobriety/dispo Discharge - Discharge Information Problems reviewed: Yes Clinical Impression/Diagnosis: Alcohol intoxication Qualifiers: Complication of substance-induced condition: uncomplicated Qualified Code(s): F10.920 - Alcohol use, unspecified with intoxication, uncomplicated - Follow up/Referral - Patient Discharge Instructions - Post Discharge Activity
[2019-05-30 17:16] VITALS: TEMP 97.9; BMI 31.5
--- NOTE | 2019-05-30 19:16 | PDOC ---
*Physical Exam - Vital Signs Last Vital Signs Temp Pulse Resp BP Pulse Ox 97.9 F 88 18 95/59 L 96 05/30/19 16:55 05/30/19 16:55 05/30/19 16:55 05/30/19 16:55 05/30/19 16:55 Medical Decision Making - Medical Decision Making 05/30/19 20:34 patient is hypotensive. patient alert responsive. will give IVF and reevaluate . await sobriety 05/31/19 05:10 patient alert awake. got up multiple times. tolerated water. will d/c Discharge - Discharge Information Problems reviewed: Yes Clinical Impression/Diagnosis: Alcohol intoxication Qualifiers: Complication of substance-induced condition: uncomplicated Qualified Code(s): F10.920 - Alcohol use, unspecified with intoxication, uncomplicated Disposition: HOME - Follow up/Referral - Patient Discharge Instructions Additional Instructions: refrain from using alcohol - Post Discharge Activity
[2019-05-30] MEDS ORDERED: SODIUM CHLORIDE 1,000 ML IV STA (20:12)
[2019-05-30] MEDS ORDERED: FOLIC ACID INJECTION - 1 MG, THIAMINE HCL 100 MG, MULTIVIT INJECTION ADULT 10 ML in SOD... IVPB ONE (20:17)
[2019-05-31] MEDS ORDERED: chlordiazePOXIDE HCL 25 MG CAPSULE PO ONE (03:30)
[2019-05-31 06:43] VITALS: BP 101/59; PULSE 86
== END 2019-05-31 06:44 | disposition home or self-care (01) ==
LOC: JER 16:43
PROC: 3E033GC Introduction of Other Therapeutic Substance into Peripheral Vein, Percutaneous Approach (ICD-10-PCS; principal; 2019-05-30)
PROC: 3E0337Z Introduction of Electrolytic and Water Balance Substance into Peripheral Vein, Percutaneous Approach (ICD-10-PCS; 2019-05-30)
DX: F10.920 Alcohol use, unspecified with intoxication, uncomplicated (principal); J44.9 Chronic obstructive pulmonary disease, unspecified; C45.7 Mesothelioma of other sites; I10 Essential (primary) hypertension
CPT/HCPCS: 99284-25; J7030

== ENCOUNTER 2019-06-04 14:48 | Emergency (ER) | payer OTHER ==
[2019-06-04 15:28] VITALS: TEMP 98.3; BMI 33.0
--- NOTE | 2019-06-04 16:44 | PDOC ---
History of Present Illness - General Chief Complaint: Alcohol intoxication Stated Complaint: INTOX Time Seen by Provider: 06/04/19 16:29 History Source: Patient Exam Limitations: Clinical Condition (intoxicated) - History of Present Illness Initial Comments: 64 y/o F, pmh of alcohol intoxication, COPD, back pain, well known to this ED, presents intoxicated. Pt reports his last drink was last night w/ 1 pint of vodka. Pt denies any c/o or issues but is here requesting food. Denies LOC, or head trauma. Denies any trauma of any sort of falls. Denies f/c/n/v/d/sob/chest pain. 06/04/19 16:42 Associated Symptoms: reports: denies symptoms. denies: chest pain, cough, diaphoresis, fever/chills, headaches, nausea/vomiting, shortness of breath Aspirin Received prior to arrival: Yes: no aspirin today Past History - Travel Traveled outside of the country in the last 30 days: No Close contact w/someone who was outside of country & ill: No - Past Medical History Allergies/Adverse Reactions: Allergies Allergy/AdvReac Type Severity Reaction Status Date / Time Fish Containing Products Allergy Mild Swelling Verified 06/04/19 15:24 No Known Drug Allergies Allergy Verified 06/04/19 15:24 Home Medications: Ambulatory Orders NK [No Known Home Medication] 04/12/19 Anemia: No Asthma: No Cancer: Yes (mesothelioma lung cancer) Cardiac Disorders: No CVA: No COPD: No CHF: No DVT: No Dementia: No Diabetes: No Dialysis: No GI Disorders: No Disorders: No HTN: Yes (non compliance) Hypercholesterolemia: Yes Kidney Stones: No Liver Disease: Yes (ETOH abuse) Psychiatric Problems: Yes (ETOH abuse) Seizures: No Thyroid Disease: No Lung CA: Yes (Mesothelioma) - Surgical History Abdominal Surgery: No Appendectomy: No Cardiac Surgery: No Cholecystectomy: No Lung Surgery: No Neurologic Surgery: No Orthopedic Surgery: No - Reproductive History Testicular Surgery: No - Immunization History Td Vaccination: Yes TDAP Vaccination: Yes Immunization Up to Date: Yes - Psycho Social/Smoking Cessation Hx Smoking Status: No Smoking History: Never smoked Have you smoked in the past 12 months: No Number of Cigarettes Smoked Daily: 0 If you are a former smoker, when did you quit?: 0 Cigars Per Day: 0 Information on smoking cessation initiated: No 'Breaking Loose' booklet given: 09/22/17 Hx Alcohol Use: Yes Drug/Substance Use Hx: No Substance Use Type: Alcohol Hx Substance Use Treatment: Yes Review of Systems - Review of Systems Able to Perform ROS?: Yes Is the patient limited Taiwanese proficient: No Constitutional: Yes: Symptoms Reported, Weight Stable, Other (intoxicated). No : Chills, Diaphoresis, Fever HEENTM: Yes: Symptoms Reported, Blurred Vision Respiratory: Yes: Symptoms reported. No: Cough, Shortness of Breath, Wheezing Cardiac (ROS): Yes: Symptoms Reported. No: Chest Pain, Palpitations ABD/GI: Yes: Symptoms Reported. No: Abdominal Distended, Diarrhea, Nausea, Vomiting : Yes: Symptoms Reported Musculoskeletal: Yes: Symptoms Reported Integumentary: Yes: Symptoms Reported. No: Bruising Neurological: Yes: Symptoms reported. No: Headache, Numbness, Weakness, Ataxia , Dizziness *Physical Exam - Vital Signs Last Vital Signs Temp Pulse Resp BP Pulse Ox 98.3 F 55 L 18 101/60 96 06/04/19 15:25 06/04/19 15:25 06/04/19 15:25 06/04/19 15:25 06/04/19 15:25 - Physical Exam General Appearance: Yes: Disheveled, Alcohol on Breath, Intoxicated, Obese HEENT: positive: EOMI, DOUGLAS, Normal ENT Inspection Neck: positive: Trachea midline, Normal Thyroid, Supple Respiratory/Chest: positive: Normal Breath Sounds Cardiovascular: positive: Regular Rhythm, Regular Rate, S1, S2. negative: Murmur, Diastolic Murmur, Systolic Murmur, Gallop/S3, Gallop/S4 Vascular Pulses: Dorsalis-Pedis (R): 2+, Doralis-Pedis (L): 2+ Gastrointestinal/Abdominal: positive: Normal Bowel Sounds, Soft Neurologic: positive: Alert Medical Decision Making - Medical Decision Making 64 y/o F, pmh of alcohol intoxication, COPD, back pain, well known to this ED, presents intoxicated. #Alcohol intoxication no evidence of trauma of LOC will reassess for clinical sobriety wait for pt to metabolize monitor 06/04/19 16:48 Discharge - Discharge Information Problems reviewed: Yes Clinical Impression/Diagnosis: Alcohol intoxication Qualifiers: Complication of substance-induced condition: with unspecified complication Qualified Code(s): F10.929 - Alcohol use, unspecified with intoxication, unspecified Condition: Improved Disposition: HOME - Admission No - Follow up/Referral Referrals: Lily Cornejo [Primary Care Provider] - - Patient Discharge Instructions Patient Printed Discharge Instructions: DI for Alcohol Abuse Additional Instructions: You were seen in the Emergency department for alcohol intoxication While you were in the hospital, we evaluated you and monitored you till you were no longer intoxicated. We recommend that you abstain for excess alcohol use as it can cause worsening of your condition and symptoms. Please take all your medications as prescribed Please follow up with your primary care physician in 1 week Return to the emergency room if you experience worsening of your symptoms, nausea, vomit, chest pain, shortness of breath or worsening of your condition. - Post Discharge Activity
--- NOTE | 2019-06-04 18:20 | PDOC ---
Attending Attestation - Resident Resident Name: EdilbertoAlexandr - ED Attending Attestation I have performed the following: I have examined & evaluated the patient, The case was reviewed & discussed with the resident, I agree w/resident's findings & plan, Exceptions are as noted - HPI HPI: 06/04/19 18:19 64-year-old male well-known to this emergency department presents with alcohol intoxication. He denies any medical complaints of fevers, chills, dizziness, focal weakness or numbness, chest pain, shortness of breath, abdominal pain, lower extremity edema, rashes. He denies any trauma or falls. He requests a tray of food. - Physicial Exam PE: 06/04/19 18:20 Agree with resident exam - Medical Decision Making 06/04/19 18:20 64-year-old male presents emergency department with alcohol intoxication. Head to toe exam with no evidence of trauma. Plan to observe patient for clinical sobriety. 06/04/19 19:02 Case signed out to Dr. Kumar for further mgmt/dispo
--- NOTE | 2019-06-04 19:34 | PDOC ---
*Physical Exam - Vital Signs Last Vital Signs Temp Pulse Resp BP Pulse Ox 98.3 F 55 L 18 101/60 96 06/04/19 15:25 06/04/19 15:25 06/04/19 15:25 06/04/19 15:25 06/04/19 15:25 Medical Decision Making - Medical Decision Making 06/04/19 19:34 received pt on signout. He is eating dinner at this time. Appears well 06/06/19 04:03 Pt stable for discharge. Ambulating about the ER Discharge - Discharge Information Problems reviewed: Yes Clinical Impression/Diagnosis: Alcohol intoxication Qualifiers: Complication of substance-induced condition: with unspecified complication Qualified Code(s): F10.929 - Alcohol use, unspecified with intoxication, unspecified Condition: Improved Disposition: HOME - Follow up/Referral Referrals: Lily Cornejo [Primary Care Provider] - - Patient Discharge Instructions Patient Printed Discharge Instructions: DI for Alcohol Abuse Additional Instructions: You were seen in the Emergency department for alcohol intoxication While you were in the hospital, we evaluated you and monitored you till you were no longer intoxicated. We recommend that you abstain for excess alcohol use as it can cause worsening of your condition and symptoms. Please take all your medications as prescribed Please follow up with your primary care physician in 1 week Return to the emergency room if you experience worsening of your symptoms, nausea, vomit, chest pain, shortness of breath or worsening of your condition. - Post Discharge Activity
[2019-06-04 20:14] VITALS: BP 119/64; PULSE 100
== END 2019-06-04 22:43 | disposition home or self-care (01) ==
LOC: JER 14:48
DX: F10.220 Alcohol dependence with intoxication, uncomplicated (principal); I10 Essential (primary) hypertension; J44.9 Chronic obstructive pulmonary disease, unspecified; C45.9 Mesothelioma, unspecified; M54.9 Dorsalgia, unspecified; G89.29 Other chronic pain; Z91.013 Allergy to seafood; Z59.0 Homelessness
CPT/HCPCS: 99282-25

== ENCOUNTER 2019-06-11 16:44 | Emergency (ER) | payer OTHER ==
[2019-06-11 17:08] VITALS: BP 113/68; PULSE 96; TEMP 98.2; BMI 33.0
--- NOTE | 2019-06-11 17:09 | PDOC ---
History of Present Illness - General Chief Complaint: Alcohol intoxication Stated Complaint: ALCOHOL INTOXICATION Time Seen by Provider: 06/11/19 17:09 History Source: Patient Exam Limitations: Intoxication - History of Present Illness Initial Comments: 06/11/19 17:11 64 y/o undomiciled M with hx of EtOH abuse with multiple ED visits for intoxication, COPD, mesothelioma, chronic back pain presenting for alcohol intoxication. Denies fever, nausea/vomiting, head trauma, chest pain, SOB, AB pain. Yesterday slept outside in cold just wants a warm place to sleep. Asked for librium and women. Last seen yesterday, refused medical care or workup Past History - Past Medical History Allergies/Adverse Reactions: Allergies Allergy/AdvReac Type Severity Reaction Status Date / Time Fish Containing Products Allergy Mild Swelling Verified 06/04/19 15:24 No Known Drug Allergies Allergy Verified 06/04/19 15:24 Home Medications: Ambulatory Orders NK [No Known Home Medication] 04/12/19 Anemia: No Asthma: No Cancer: Yes (mesothelioma lung cancer) Cardiac Disorders: No CVA: No COPD: No CHF: No DVT: No Dementia: No Diabetes: No Dialysis: No GI Disorders: No Disorders: No HTN: Yes (non compliance) Hypercholesterolemia: Yes Kidney Stones: No Liver Disease: Yes (ETOH abuse) Psychiatric Problems: Yes (ETOH abuse) Seizures: No Thyroid Disease: No Lung CA: Yes (Mesothelioma) - Surgical History Abdominal Surgery: No Appendectomy: No Cardiac Surgery: No Cholecystectomy: No Lung Surgery: No Neurologic Surgery: No Orthopedic Surgery: No - Reproductive History Testicular Surgery: No - Immunization History Td Vaccination: Yes TDAP Vaccination: Yes Immunization Up to Date: Yes - Psycho Social/Smoking Cessation Hx Smoking Status: No Smoking History: Never smoked Have you smoked in the past 12 months: No Number of Cigarettes Smoked Daily: 0 If you are a former smoker, when did you quit?: 0 Cigars Per Day: 0 Information on smoking cessation initiated: No 'Breaking Loose' booklet given: 09/22/17 Hx Alcohol Use: No Drug/Substance Use Hx: No Substance Use Type: Alcohol Hx Substance Use Treatment: Yes Review of Systems - Review of Systems Constitutional: No: Chills, Fever HEENTM: No: Eye Pain, Nose Pain, Throat Pain, Mouth Pain Respiratory: No: Cough, Shortness of Breath Cardiac (ROS): No: Chest Pain, Palpitations, Syncope ABD/GI: No: Abdominal Distended, Constipated, Diarrhea, Nausea, Vomiting : No: Burning, Dysuria, Frequency Musculoskeletal: Yes: Back Pain (chronic), Muscle Pain (chronic) Integumentary: No: Bruising, Dryness, Erythema *Physical Exam - Vital Signs Last Vital Signs Temp Pulse Resp BP Pulse Ox 98.2 F 96 H 18 113/68 96 06/11/19 16:58 06/11/19 16:58 06/11/19 16:58 06/11/19 16:58 06/11/19 16:58 - Physical Exam General Appearance: Yes: Nourished, Appropriately Dressed. No: Apparent Distress HEENT: positive: EOMI, DOUGLAS, Normal Voice, Hearing Grossly Normal. negative: Scleral Icterus (R), Scleral Icterus (L), Nasal Congestion Respiratory/Chest: positive: Lungs Clear, Normal Breath Sounds. negative: Chest Tender, Respiratory Distress, Crackles, Rales, Rhonchi, Stridor, Wheezing Cardiovascular: positive: Regular Rhythm, Regular Rate, S1, S2. negative: Edema , Murmur Gastrointestinal/Abdominal: positive: Normal Bowel Sounds, Flat, Soft. negative : Tender, Organomegaly Extremity: positive: Other (no shaking) Neurologic: positive: Fully Oriented, Alert, Normal Response, Responsive. negative: Numbness, Confused, Disoriented Medical Decision Making - Medical Decision Making 06/11/19 17:12 64 y/o undomiciled M with hx of EtOH abuse with multiple ED visits for intoxication, COPD, mesothelioma, chronic back pain presenting for alcohol intoxication. No evidence of withdrawal (no shaking, AB pain, vomiting) 01:45 - pt complaining of SOB, kareem chest pain started 1hr ago. Ordered EKG, CXR , CBC, BMP, trop. Normal heart sounds, clear breath sounds on re-eval. Likely MSK. Rule out ACS vs PNA vs anemia Given fluids, aspirin. Signed out to night team - pending CXR, EKG, labs Anticipate DC home Discharge - Discharge Information Problems reviewed: Yes Clinical Impression/Diagnosis: Alcohol intoxication Condition: Stable Disposition: HOME - Follow up/Referral Referrals: Lily Cornejo [Primary Care Provider] - - Patient Discharge Instructions - Post Discharge Activity
--- NOTE | 2019-06-11 18:13 | PDOC ---
Documentation entered by Susu Gonzales SCRIBE, acting as scribe for Sadia Cornell MD. Sadia Cornell MD: This documentation has been prepared by the Janet pereira Nirvannie, SCRIBE, under my direction and personally reviewed by me in its entirety. I confirm that the documentation accurately reflects all work, treatment, procedures, and medical decision making performed by me. Attending Attestation - Resident Resident Name: PeterBob santiago - ED Attending Attestation I have performed the following: I have examined & evaluated the patient, The case was reviewed & discussed with the resident, I agree w/resident's findings & plan, Exceptions are as noted - HPI HPI: 06/11/19 18:10 Mr De Leon is a 63 yo M who is well known to the ER He has a h/o HTN, alcohol abuse, mesothelioma, chronic back pain Pt presents to the ER via EMS with no complaints Pt notes he slept outside on a park bench last night and is extremely cold. He notes drinking a pint of vodka today. He request a tray of food and ensure. No complaints of chest pain - Physicial Exam PE: 06/11/19 18:11 Discheveled, Malodorous RRR, no irregularity noted Diminished breath sounds at the bases No abd tenderness to palpation Lower extremity edema - Medical Decision Making 06/11/19 18:11 Mr De Leon is well known to this ER He presents with no specific complaints however is clearly intoxicated Pt should be evaluated with EKG Re Assess for sobriety 06/11/19 19:11 Patient requests a tray of food from me as well as Ensure Both are ordered Patient fed Patient allowed to sleep 06/12/19 00:34 Patient is seated up in bed requesting water Water provided 06/12/19 01:53 Pt now more awake States he has epigastric/chest pain and is short of breath Will do labs Will do EKG Will do CXR
[2019-06-12] MEDS ORDERED: ASPIRIN 81 MG CHEWABLE TABLETS PO ONE (01:52)
[2019-06-12] MEDS ORDERED: ALBUTEROL SO4 2.5/IPRATROPIUM 0.5 INH SOL 3 ML VIAL.NEB. NEB ONE ×2 (02:01)
[2019-06-12] MEDS ORDERED: ASPIRIN 81 MG CHEWABLE TABLETS ONE (04:52)
[2019-06-12 05:45] LABS: BASO % 0.9 % (0-2.0); EOS % 0.7 % (0-4.5); HEMATOCRIT 28.8 % (35.4-49); HEMOGLOBIN 9.2 GM/dL (11.7-16.9); LYMPH % 18.6 % (8-40); MCH 25.4 pg (25.7-33.7); MEAN CELL VOLUME 79.6 fl (80-96); MEAN PLT VOLUME 7.7 fl (7.5-11.1); NEUT % 72.8 % (42.8-82.8); PLATELET COUNT 252 K/MM3 (134-434); RBC 3.63 M/mm3 (4.00-5.60); RDW 22.2 % (11.9-15.9); WHITE BLOOD COUNT 6.4 K/mm3 (4.0-10.0)
--- NOTE | 2019-06-12 05:57 | PDOC ---
*Physical Exam - Vital Signs Last Vital Signs Temp Pulse Resp BP Pulse Ox 98.2 F 96 H 18 113/68 96 06/11/19 16:58 06/11/19 16:58 06/11/19 16:58 06/11/19 16:58 06/11/19 16:58 ED Treatment Course - LABORATORY CBC & Chemistry Diagram: 06/12/19 03:22 06/12/19 03:22 - RADIOLOGY Radiology Studies Ordered: Category Date Time Status HEAD CT WITHOUT CONTRAST [CT] Stat CT Scan 06/12/19 02:13 Taken - Medications Given in the ED: ED Medications Discontinued Medications Generic Name Dose Route Start Last Admin Trade Name Francisco Javier PRN Reason Stop Dose Admin Albuterol/Ipratropium 2 amp 06/12/19 02:01 06/12/19 02:02 Duoneb - NEB 06/12/19 02:02 2 amp ONCE ONE Administration Aspirin 324 mg 06/12/19 01:52 06/12/19 05:02 Asa - PO 06/12/19 01:53 324 mg ONCE ONE Administration Medical Decision Making - Medical Decision Making 06/12/19 05:55 Pt signed out to me. Usually here for alcohol intox; today he comes ith intox, but also complaining of dizziness and possible fall. Head CT normal. Patient Name: MANUEL GUERRA THIS IS A PRELIMINARY REPORT FROM [facility] DATE OF SERVICE: 2019-06-12 02:17:26 IMAGES: [id number] EXAM: HEAD CT WITHOUT CONTRAST HISTORY: Dizziness COMPARISON: None. FINDINGS: Involutional changes. No acute intracranial abnormality. No hemorrhage. No visible infarct or mass. Osseous structures are intact. Mucosal thickening in the maxillary ethmoid and sphenoid sinuses. Retention cysts/polyps in the maxillary sinuses. 06/12/19 06:19 K+ is 2.8 and he will be repleted orally until we are able to get an IV line. Discharge - Discharge Information Problems reviewed: Yes Clinical Impression/Diagnosis: Hypokalemia, Eloped from emergency department Alcohol intoxication Qualifiers: Complication of substance-induced condition: with unspecified complication Qualified Code(s): F10.929 - Alcohol use, unspecified with intoxication, unspecified Condition: Unchanged/Unknown Disposition: ELOPED - Follow up/Referral Referrals: Lily Cornejo [Primary Care Provider] - - Patient Discharge Instructions - Post Discharge Activity
[2019-06-12 06:16] LABS: BLOOD UREA NITROGEN 6.8 mg/dL (7-18); CALCIUM 8.5 mg/dL (8.5-10.1); CREATININE 0.6 mg/dL (0.55-1.3)
--- NOTE | 2019-06-12 06:17 | PDOC ---
*Physical Exam - Vital Signs Last Vital Signs Temp Pulse Resp BP Pulse Ox 98.2 F 96 H 18 113/68 96 06/11/19 16:58 06/11/19 16:58 06/11/19 16:58 06/11/19 16:58 06/11/19 16:58 - Physical Exam General Appearance: Yes: Disheveled, Alcohol on Breath, Intoxicated, Obese HEENT: positive: EOMI, DOUGLAS, Normal ENT Inspection, Pharynx Normal Neck: positive: Trachea midline, Normal Thyroid, Supple Respiratory/Chest: positive: Lungs Clear, Normal Breath Sounds. negative: Crackles, Rales, Wheezing, Dullness Cardiovascular: positive: Regular Rhythm, Regular Rate, S1, S2. negative: Murmur, Gallop/S3, Gallop/S4 Vascular Pulses: Dorsalis-Pedis (R): 2+, Doralis-Pedis (L): 2+ Gastrointestinal/Abdominal: positive: Normal Bowel Sounds, Soft. negative: Tender, Guarding, Rebound Musculoskeletal: positive: Normal Inspection. negative: CVA Tenderness Integumentary: positive: Normal Color Neurologic: positive: Fully Oriented, Alert, Normal Mood/Affect ED Treatment Course - LABORATORY CBC & Chemistry Diagram: 06/12/19 03:22 06/12/19 03:22 - ADDITIONAL ORDERS Additional order review: Laboratory Results 06/12/19 03:22 Troponin I < 0.02 06/12/19 03:22 RBC 3.63 L MCV 79.6 L MCHC 32.0 RDW 22.2 H MPV 7.7 Neutrophils % 72.8 Lymphocytes % 18.6 Monocytes % 7.0 Eosinophils % 0.7 Basophils % 0.9 - Medications Given in the ED: ED Medications Discontinued Medications Generic Name Dose Route Start Last Admin Trade Name Freq PRN Reason Stop Dose Admin Albuterol/Ipratropium 2 amp 06/12/19 02:01 06/12/19 02:02 Duoneb - NEB 06/12/19 02:02 2 amp ONCE ONE Administration Aspirin 324 mg 06/12/19 01:52 06/12/19 05:02 Asa - PO 06/12/19 01:53 324 mg ONCE ONE Administration Medical Decision Making - Medical Decision Making 64 y/o M w/ pmh of EtOH abuse with multiple ED visits for intoxication, COPD, mesothelioma, chronic back pain presenting for alcohol intoxication #Hypokalemia Potassium 2.8 will admit monitor lytes #Alcohol intox No evidence of withdrawal (no shaking, AB pain, vomiting) will wait till pt metabolizes consider beginning librium protocol Aspirin given IVF given 06/12/19 06:24 Discharge - Discharge Information Problems reviewed: Yes Clinical Impression/Diagnosis: Hypokalemia, Eloped from emergency department Alcohol intoxication Qualifiers: Complication of substance-induced condition: with unspecified complication Qualified Code(s): F10.929 - Alcohol use, unspecified with intoxication, unspecified Condition: Unchanged/Unknown Disposition: ELOPED - Admission Yes - Follow up/Referral Referrals: Lily Cornejo [Primary Care Provider] - - Patient Discharge Instructions - Post Discharge Activity
[2019-06-12] MEDS ORDERED: POTASSIUM CHLORIDE TABS 20 MEQ TABLET.ER (FP) PO ONE (06:18)
[2019-06-12] MEDS ORDERED: MAGNESIUM SULF 50% (8.12 MEQ/2 ML-1 GM VIAL) IVPB ONE (06:19)
[2019-06-12 06:31] LABS: POTASSIUM 2.8 mmol/L (3.5-5.1)
[2019-06-12] MEDS ORDERED: MAGNESIUM SULFATE IN WATER 2 GM/50 ML IVPB IVPB ONE (07:14)
[2019-06-12] MEDS ORDERED: chlordiazePOXIDE HCL 25 MG CAPSULE PO ONE (07:22)
[2019-06-12] MEDS ORDERED: chlordiazePOXIDE HCL 25 MG CAPSULE ONE (07:27)
[2019-06-12] MEDS ORDERED: SODIUM CHLORIDE 0.9%/KCL 20 MEQ/1,000 ML INFUS.BAG IV ONE (07:31)
--- NOTE | 2019-06-12 10:15 | PDOC ---
*Physical Exam - Vital Signs Last Vital Signs Temp Pulse Resp BP Pulse Ox 98.2 F 96 H 18 113/68 96 06/11/19 16:58 06/11/19 16:58 06/11/19 16:58 06/11/19 16:58 06/11/19 16:58 - Physical Exam 06/12/19 10:13 Patient eloped. Attempted to replete patient's potassium, patient adamantly refused. Attempted admission and patient refused. Full discussion held with patient, who was coherent and clearly had decision making capacity. Was seen ambulating to the bathroom before elopement with normal gait. ED Treatment Course - LABORATORY CBC & Chemistry Diagram: 06/12/19 03:22 06/12/19 03:22 - ADDITIONAL ORDERS Additional order review: Laboratory Results 06/12/19 06/12/19 03:22 03:22 Sodium 143 Potassium 2.8 L* Chloride 105 Carbon Dioxide 29 Anion Gap 9 BUN 6.8 L Creatinine 0.6 Est GFR (CKD-EPI)AfAm 123.15 Est GFR (CKD-EPI)NonAf 106.25 Random Glucose 104 Calcium 8.5 Troponin I < 0.02 06/12/19 03:22 RBC 3.63 L MCV 79.6 L MCHC 32.0 RDW 22.2 H MPV 7.7 Neutrophils % 72.8 Lymphocytes % 18.6 Monocytes % 7.0 Eosinophils % 0.7 Basophils % 0.9 - Medications Given in the ED: ED Medications Discontinued Medications Generic Name Dose Route Start Last Admin Trade Name Freq PRN Reason Stop Dose Admin Albuterol/Ipratropium 2 amp 06/12/19 02:01 06/12/19 02:02 Duoneb - NEB 06/12/19 02:02 2 amp ONCE ONE Administration Aspirin 324 mg 06/12/19 01:52 06/12/19 05:02 Asa - PO 06/12/19 01:53 324 mg ONCE ONE Administration Chlordiazepoxide HCl 100 mg 06/12/19 07:22 06/12/19 07:32 Librium - PO 06/12/19 07:23 100 mg ONCE ONE Administration Potassium Chloride/Sodium Chloride 20 meq in 1,000 mls @ 0 mls/hr 06/12/19 07: 31 06/12/19 07:32 Ns+20 Meq Kcl - IV 06/12/19 07:32 100 mls/hr ONCE ONE Administration Wide Open Magnesium Sulfate 2 gm 06/12/19 06:19 06/12/19 07:33 Magnesium Sulfate IVPB 06/12/19 06:20 2 gm ONCE ONE Administration Potassium Chloride 40 meq 06/12/19 06:18 06/12/19 06:57 K-Dur - PO 06/12/19 06:19 Not Given ONCE ONE Discharge - Discharge Information Problems reviewed: Yes Clinical Impression/Diagnosis: Hypokalemia Alcohol intoxication Qualifiers: Complication of substance-induced condition: with unspecified complication Qualified Code(s): F10.929 - Alcohol use, unspecified with intoxication, unspecified Condition: Unchanged/Unknown Disposition: ELOPED - Follow up/Referral Referrals: Lily Cornejo [Primary Care Provider] - - Patient Discharge Instructions - Post Discharge Activity
[2019-06-12 10:40] LABS: ANISOCYTOSIS 2+; MACROCYTOSIS 1+
[2019-06-12 10:41] LABS: PLATELET ESTIMATE ADEQUATE; TARGET CELLS 1+
--- NOTE | 2019-06-12 15:27 | EKG ---
Test Reason : Blood Pressure : / mmHG Vent. Rate : 104 BPM Atrial Rate : 104 BPM P-R Int : 192 ms QRS Dur : 106 ms QT Int : 362 ms P-R-T Axes : 035 -29 049 degrees QTc Int : 476 ms SINUS TACHYCARDIA WITH PREMATURE ATRIAL COMPLEXES OTHERWISE NORMAL ECG WHEN COMPARED WITH ECG OF 26-MAY-2019 09:32, PREMATURE ATRIAL COMPLEXES ARE NOW PRESENT Confirmed by MD MICHAEL, JUNG ([id number]) on 06/12/2019 3:26:41 PM Referred By: Confirmed By:JUNG RODRIGUEZ MD
== END 2019-06-12 10:08 | disposition left against medical advice (07) ==
LOC: JER 16:44
PROC: 3E0F7GC Introduction of Other Therapeutic Substance into Respiratory Tract, Via Natural or Artificial Opening (ICD-10-PCS; principal; 2019-06-11)
DX: F10.220 Alcohol dependence with intoxication, uncomplicated (principal); E87.6 Hypokalemia; I10 Essential (primary) hypertension; C45.9 Mesothelioma, unspecified; M54.5 Low back pain; G89.29 Other chronic pain; Z59.0 Homelessness
CPT/HCPCS: 36415; 70450-TC; 71045-TC-FY; 80048; 84484; 85025; 93005; 93010; 94640; 99283-25

== ENCOUNTER 2019-06-13 01:42 | Emergency (ER) | payer OTHER ==
[2019-06-13 05:14] VITALS: BP 131/88; PULSE 97; TEMP 98.5; BMI 35.9
--- NOTE | 2019-06-13 08:50 | PDOC ---
History of Present Illness - General Chief Complaint: Injury Stated Complaint: FALL Time Seen by Provider: 06/13/19 07:06 History Source: Patient Exam Limitations: No Limitations - History of Present Illness Initial Comments: 06/13/19 07:30 64YOM with h/o EtOH use disorder, mesothelioma, chronic back pain, and HTN who presented to the ED initially stating he needed to be seen by a doctor, then requesting to see social worker assistant or case making machine operator for longterm placement and resources. He notes "I feel like crap" but has no focal area of pain that he is noting. Denies any recent f/c/n/v/d/c, denies chest pain, abdominal pain, or change in his baseline back pain. He was seen here in the ED yesterday, complained of SOB several hours into his visit, and had lab work showing hypokalemia to 2.8 but refused potassium repletion and refused admission. Denies SOB today Past History - Past Medical History Allergies/Adverse Reactions: Allergies Allergy/AdvReac Type Severity Reaction Status Date / Time Fish Containing Products Allergy Mild Swelling Verified 06/13/19 05:14 No Known Drug Allergies Allergy Verified 06/13/19 05:14 Home Medications: Ambulatory Orders NK [No Known Home Medication] 04/12/19 Anemia: No Asthma: No Cancer: Yes (mesothelioma lung cancer) Cardiac Disorders: No CVA: No COPD: No CHF: No DVT: No Dementia: No Diabetes: No Dialysis: No GI Disorders: No Disorders: No HTN: Yes (non compliance) Hypercholesterolemia: Yes Kidney Stones: No Liver Disease: Yes (ETOH abuse) Psychiatric Problems: Yes (ETOH abuse) Seizures: No Thyroid Disease: No Lung CA: Yes (Mesothelioma) - Surgical History Abdominal Surgery: No Appendectomy: No Cardiac Surgery: No Cholecystectomy: No Lung Surgery: No Neurologic Surgery: No Orthopedic Surgery: No - Reproductive History Testicular Surgery: No - Immunization History Td Vaccination: Yes TDAP Vaccination: Yes Immunization Up to Date: Yes - Psycho Social/Smoking Cessation Hx Smoking Status: No Smoking History: Never smoked Have you smoked in the past 12 months: No Number of Cigarettes Smoked Daily: 0 If you are a former smoker, when did you quit?: 0 Cigars Per Day: 0 'Breaking Loose' booklet given: 09/22/17 Hx Alcohol Use: Yes Drug/Substance Use Hx: Yes Substance Use Type: Alcohol Hx Substance Use Treatment: Yes Review of Systems - Review of Systems Able to Perform ROS?: Yes Comments:: 06/13/19 09:00 GEN: malaise, no fever, chills, night sweats, or unintentional weight change HEENT: no ear pain, congestion, sore throat, rhinorrhea, nosebleed, vision change, or eye pain CV: no chest pain, palpitations, lightheadedness, syncope, edema, or exercise intolerance RESP: no cough, wheezing, or SOB GI: no abdominal pain, nausea, vomiting, diarrhea, constipation, appetite change , or white/black/bloody stool : no dysuria, hematuria, frequency, incontinence, retention, pruritis, bleeding, or discharge MSK: chronic back pain, no muscle weakness or pain, no muscle wasting, no joint swelling or pain NEURO: no headache, seizure, vertigo, imbalance, numbness, tingling, focal weakness, or difficulty walking/talking PSYCH: no insomnia, behavior change, SI, HI, or substance use SKIN: no prutitis, excessive dryness, jaundice, rash, cuts, or unexplained bruises ROS otherwise negative except as noted in HPI *Physical Exam - Vital Signs Last Vital Signs Temp Pulse Resp BP Pulse Ox 98.5 F 97 H 18 131/88 97 06/13/19 01:45 06/13/19 01:45 06/13/19 01:45 06/13/19 01:45 06/13/19 01:45 - Physical Exam 06/13/19 09:03 GENERAL: initially sleeping and easily arousable, A/Ox4, no distress, answers questions appropriately, frustrated, disheveled and unkempt HEENT: PERRLA, EOMI, moist mucous membranes NECK/BACK: no midline ttp, no spinal stepoff or deformity, no hematoma, full ROM , neck supple CARDIOVASCULAR: regular rate/rhythm, normal S1S2, no MGR, strong peripheral pulses, capillary refill <2 seconds, extremities wwp, BLE pitting edema LUNGS/RESPIRATORY: no respiratory distress, CTAB GI/ABDOMEN: symmetric [id number], normoactive BS, soft, no ttp, no midline pulsatile masses : no CVA tenderness EXTREMITIES: no muscle atrophy, no acute deformity SKIN: warm and dry, scattered bruises to extremities which appear old, flushed face, no pallor, no jaundice, no rash, no skin breakdown, no cuts, no lesions NEUROLOGICAL: GCS 15, CN II-XII grossly intact, 5/5 strength proximally and distally, no facial droop, ambulating with normal gait Medical Decision Making - Medical Decision Making 06/13/19 08:00 64YOM p/w request for longterm placement, also notes malaise. Initial Vital Signs Temp Pulse Resp BP Pulse Ox 98.5 F 97 H 18 131/88 97 06/13/19 01:45 06/13/19 01:45 06/13/19 01:45 06/13/19 01:45 06/13/19 01:45 Case management sees the patient to discuss possibility of NH placement. Pt is agreeable to workup for malaise. Labs, EKG, CXR ordered and will coordinate with CM for dispo plan. Librium ordered. 06/13/19 09:43 CM saw the patient and discussed possibility of SNF placement in [place]. He must be medically cleared first. Patient refusing care at this time. He is clinically sober and has decision making capacity. Will speak with him again and re-attempt workup. 06/13/19 10:30 Patient has eloped from the department. Was clinically sober, ambulating, when I last saw the patient. Entire department searched. Discharge - Discharge Information Problems reviewed: Yes Clinical Impression/Diagnosis: Patient left before treatment completed Condition: Guarded Disposition: ELOPED - Follow up/Referral - Patient Discharge Instructions - Post Discharge Activity
[2019-06-13] MEDS ORDERED: chlordiazePOXIDE HCL 25 MG CAPSULE PO ONE (11:06)
--- NOTE | 2019-06-13 11:06 | PDOC ---
Attending Attestation - Resident Resident Name: Anabell Dover - ED Attending Attestation I have performed the following: I have examined & evaluated the patient, The case was reviewed & discussed with the resident, I agree w/resident's findings & plan - HPI HPI: 06/13/19 11:03 64-year-old male well-known to us with multiple medical problems presents wanting long-term care facility placement, recently seen here on 06/12 was noted to be hypokalemic, refused any potassium because it "makes him sick" but presents now for placement, no other acute complaints specifically. Last drink was 3 days ago, denies any seizure activity but feels slightly tremulous, denies any chest pain at this time. - Physicial Exam PE: 06/13/19 11:04 Vitals as noted, afebrile Alert seated in wheelchair, disheveled at baseline, not currently intoxicated Pupils are equal round reactive to light, neck is supple Heart is normal rate, coarse breath sounds both sides Abdomen benign - Medical Decision Making 06/13/19 11:04 64-year-old male with multiple chronic illnesses, chronic alcoholism presents requesting long-term placement, no acute complaints here and vital signs stable. No active CHF or withdrawal. Initially refusing medical evaluation, then agreeable given requiring medical clearance for long-term placement. Recheck labs EKG Prophylactic Librium Social work/case management has seen the patient and will assist with disposition Reassess and disposition accordingly
== END 2019-06-13 11:52 | disposition left against medical advice (07) ==
LOC: JER 01:42
DX: Z02.2 Encounter for examination for admission to residential institution (principal); I10 Essential (primary) hypertension; M54.89 Other dorsalgia; G89.29 Other chronic pain; C45.9 Mesothelioma, unspecified; F10.20 Alcohol dependence, uncomplicated; Z91.14 Patient's other noncompliance with medication regimen; Z59.0 Homelessness
CPT/HCPCS: 99281-25

== ENCOUNTER 2019-06-16 13:22 | Emergency (ER) | payer OTHER ==
[2019-06-16 13:47] VITALS: BP 146/88; PULSE 74; TEMP 98; BMI 33.0
--- NOTE | 2019-06-16 15:15 | PDOC ---
History of Present Illness - General Chief Complaint: Alcohol intoxication Stated Complaint: REVISIT,INTOX Time Seen by Provider: 06/16/19 14:40 Past History - Past Medical History Allergies/Adverse Reactions: Allergies Allergy/AdvReac Type Severity Reaction Status Date / Time Fish Containing Products Allergy Mild Swelling Verified 06/16/19 13:47 No Known Drug Allergies Allergy Verified 06/16/19 13:47 Home Medications: Ambulatory Orders NK [No Known Home Medication] 04/12/19 Anemia: No Asthma: No Cancer: Yes (mesothelioma lung cancer) Cardiac Disorders: No CVA: No COPD: No CHF: No DVT: No Dementia: No Diabetes: No Dialysis: No GI Disorders: No Disorders: No HTN: Yes (non compliance) Hypercholesterolemia: Yes Kidney Stones: No Liver Disease: Yes (ETOH abuse) Psychiatric Problems: Yes (ETOH abuse) Seizures: No Thyroid Disease: No Lung CA: Yes (Mesothelioma) - Surgical History Abdominal Surgery: No Appendectomy: No Cardiac Surgery: No Cholecystectomy: No Lung Surgery: No Neurologic Surgery: No Orthopedic Surgery: No - Reproductive History Testicular Surgery: No - Immunization History Td Vaccination: Yes TDAP Vaccination: Yes Immunization Up to Date: Yes - Psycho Social/Smoking Cessation Hx Smoking Status: No Smoking History: Never smoked Have you smoked in the past 12 months: No Number of Cigarettes Smoked Daily: 0 If you are a former smoker, when did you quit?: 0 Cigars Per Day: 0 'Breaking Loose' booklet given: 09/22/17 Hx Alcohol Use: Yes Drug/Substance Use Hx: Yes Substance Use Type: Alcohol Hx Substance Use Treatment: Yes *Physical Exam - Vital Signs Last Vital Signs Temp Pulse Resp BP Pulse Ox 98 F 74 18 146/88 100 06/16/19 13:45 06/16/19 13:45 06/16/19 13:45 06/16/19 13:45 06/16/19 13:45 Discharge - Discharge Information Problems reviewed: Yes Clinical Impression/Diagnosis: Hemorrhoid - Follow up/Referral - Patient Discharge Instructions - Post Discharge Activity
--- NOTE | 2019-06-16 17:35 | PDOC ---
Documentation entered by Joelle Juárez SCRIBE, acting as scribe for Monica Suh MD. Monica Suh MD: This documentation has been prepared by the Marquita pereira Brenda, SCRIBE, under my direction and personally reviewed by me in its entirety. I confirm that the documentation accurately reflects all work, treatment, procedures, and medical decision making performed by me. Attending Attestation - Resident Resident Name: Harper Mckeon - ED Attending Attestation I have performed the following: I have examined & evaluated the patient, The case was reviewed & discussed with the resident, I agree w/resident's findings & plan, Exceptions are as noted - HPI HPI: 06/16/19 17:33 64 yo male here with h/o etoh abuse, cirrshosis, mesothelioma, well known to department here with c/o testicle bleeding per EMS. was brought by ambulance. pt denies rectal bleeding . denies other complaints. states he does not want to be examined. refuse to allow examination of testicle. denies trauma. no f/c. no urinary difficulty. - Physicial Exam PE: 06/16/19 17:34 awake alert disheveled, malodorous, lungs clear bilat heart rrrn mrg. abd soft nt nd obese. - Medical Decision Making 06/16/19 17:34 pt refusing exam. was sitting comfortable for ED stay. eloped
== END 2019-06-16 15:00 | disposition home or self-care (01) ==
LOC: JER 13:22
DX: K64.9 Unspecified hemorrhoids (principal); F10.220 Alcohol dependence with intoxication, uncomplicated; I10 Essential (primary) hypertension; C45.9 Mesothelioma, unspecified; K74.60 Unspecified cirrhosis of liver; F17.210 Nicotine dependence, cigarettes, uncomplicated; Z59.0 Homelessness; Z91.19 Patient's noncompliance with other medical treatment and regimen
CPT/HCPCS: 99281-25

== ENCOUNTER 2019-06-16 23:09 | Emergency (ER) | payer OTHER ==
[2019-06-17 00:13] VITALS: BMI 28.8
[2019-06-17] MEDS ORDERED: ACETAMINOPHEN 325 MG TABLET (FP) PO ONE (04:53)
--- NOTE | 2019-06-17 04:53 | PDOC ---
History of Present Illness - General Chief Complaint: Alcohol intoxication Stated Complaint: INTOX Time Seen by Provider: 06/17/19 04:48 History Source: Patient Exam Limitations: No Limitations - History of Present Illness Initial Comments: 06/17/19 04:49 Patient is a 64M with history of alcohol abuse, cirrhosis, mesothelioma, well known to the ED complaining of back pain. Patient states that it hurts on the left side. Denies fevers, chills, nausea, vomiting. Denies leg pain, weakness, urinary incontinence. Denies trauma. Past History - Past Medical History Allergies/Adverse Reactions: Allergies Allergy/AdvReac Type Severity Reaction Status Date / Time Fish Containing Products Allergy Mild Swelling Verified 06/17/19 00:06 No Known Drug Allergies Allergy Verified 06/17/19 00:06 Home Medications: Ambulatory Orders NK [No Known Home Medication] 04/12/19 Anemia: No Asthma: No Cancer: Yes (mesothelioma lung cancer) Cardiac Disorders: No CVA: No COPD: No CHF: No DVT: No Dementia: No Diabetes: No Dialysis: No GI Disorders: No Disorders: No HTN: Yes (non compliance) Hypercholesterolemia: Yes Kidney Stones: No Liver Disease: Yes (ETOH abuse) Psychiatric Problems: Yes (ETOH abuse) Seizures: No Thyroid Disease: No Lung CA: Yes (Mesothelioma) - Surgical History Abdominal Surgery: No Appendectomy: No Cardiac Surgery: No Cholecystectomy: No Lung Surgery: No Neurologic Surgery: No Orthopedic Surgery: No - Reproductive History Testicular Surgery: No - Immunization History Td Vaccination: Yes TDAP Vaccination: Yes Immunization Up to Date: Yes - Psycho Social/Smoking Cessation Hx Smoking Status: No Smoking History: Never smoked Have you smoked in the past 12 months: No Number of Cigarettes Smoked Daily: 0 If you are a former smoker, when did you quit?: 0 Cigars Per Day: 0 Information on smoking cessation initiated: No 'Breaking Loose' booklet given: 09/22/17 Hx Alcohol Use: Yes Drug/Substance Use Hx: No Substance Use Type: Alcohol Hx Substance Use Treatment: Yes Review of Systems - Review of Systems Able to Perform ROS?: Yes Comments:: 06/17/19 04:51 GENERAL/CONSTITUTIONAL: No fever or chills. No weakness. HEAD, EYES, EARS, NOSE AND THROAT: No change in vision. No sore throat. CARDIOVASCULAR: No chest pain or shortness of breath RESPIRATORY: No cough, wheezing, or hemoptysis. GASTROINTESTINAL: No nausea, vomiting, diarrhea or constipation. GENITOURINARY: No dysuria, frequency, or change in urination. MUSCULOSKELETAL: No joint or muscle swelling or pain. +back pain SKIN: No rash NEUROLOGIC: No headache, vertigo, loss of consciousness, or change in strength/ sensation. ALLERGIC/IMMUNOLOGIC: No hives or skin allergy. *Physical Exam - Vital Signs Last Vital Signs Temp Pulse Resp BP Pulse Ox 97.6 F 89 18 148/79 96 06/17/19 00:11 06/17/19 00:11 06/17/19 00:11 06/17/19 00:11 06/17/19 00:11 - Physical Exam 06/17/19 04:52 GENERAL: Awake, alert, and fully oriented, in no acute distress, asleep in bed, disheveled. HEAD: No signs of trauma, normocephalic, atraumatic EYES: PERRLA, EOMI, sclera anicteric, conjunctiva clear ENT: Auricles normal inspection, hearing grossly normal, nares patent, oropharynx clear without exudates. Moist mucosa NECK: Normal ROM, supple, no lymphadenopathy, JVD, or masses BACK: No midline tenderness LUNGS: No distress, speaks full sentences, clear to auscultation bilaterally HEART: Regular rate and rhythm, normal S1 and S2, no murmurs, rubs or gallops, peripheral pulses normal and equal bilaterally. ABDOMEN: Soft, nontender, normoactive bowel sounds. No guarding, no rebound. No masses EXTREMITIES: Normal inspection, Normal range of motion, no edema. No clubbing or cyanosis. NEUROLOGICAL: Cranial nerves II through XII grossly intact. Normal speech, normal gait, no focal sensorimotor deficits SKIN: Warm, Dry, normal turgor, no rashes or lesions noted. Medical Decision Making - Medical Decision Making 06/17/19 04:54 Patient is 64M well known to the ED here today with back pain. No red flags. Will discharge home. Discharge - Discharge Information Problems reviewed: Yes Clinical Impression/Diagnosis: Back pain Condition: Good Disposition: HOME - Admission No - Follow up/Referral - Patient Discharge Instructions Patient Printed Discharge Instructions: DI for Alcohol Abuse - Post Discharge Activity
[2019-06-17 05:12] VITALS: BP 121/70; PULSE 94; TEMP 98.4
--- NOTE | 2019-06-17 05:20 | PDOC ---
Attending Attestation - Resident Resident Name: Edilberto Lenz - ED Attending Attestation I have performed the following: I have examined & evaluated the patient, The case was reviewed & discussed with the resident, I agree w/resident's findings & plan, Exceptions are as noted
[2019-06-17] MEDS ORDERED: ACETAMINOPHEN 325 MG TABLET (FP) ONE (05:58)
== END 2019-06-17 06:49 | disposition home or self-care (01) ==
LOC: JER 23:09
DX: M54.89 Other dorsalgia (principal); F10.220 Alcohol dependence with intoxication, uncomplicated; I10 Essential (primary) hypertension; C45.9 Mesothelioma, unspecified; K74.60 Unspecified cirrhosis of liver; Z91.013 Allergy to seafood; Z59.0 Homelessness
CPT/HCPCS: 99282-25

== ENCOUNTER 2019-06-18 05:15 | Inpatient (IN) | payer OTHER ==
[2019-06-18 06:48] VITALS: BMI 40.6
[2019-06-18] MEDS ORDERED: chlordiazePOXIDE HCL 25 MG CAPSULE PO ONE ×2 (09:43→15:48)
[2019-06-18] MEDS ORDERED: chlordiazePOXIDE HCL 25 MG CAPSULE ONE ×2 (10:48→16:29)
[2019-06-18 11:13] LABS: BASO % 0.8 % (0-2.0); EOS % 1.6 % (0-4.5); HEMATOCRIT 29.7 % (35.4-49); HEMOGLOBIN 9.2 GM/dL (11.7-16.9); LYMPH % 17.5 % (8-40); MCHC 31.1 g/dl (32.0-35.9); MEAN CELL VOLUME 80.3 fl (80-96); MEAN PLT VOLUME 7.7 fl (7.5-11.1); MONO % 8.1 % (3.8-10.2); PLATELET COUNT 202 K/MM3 (134-434); RBC 3.69 M/mm3 (4.00-5.60); RDW 22.7 % (11.9-15.9); WHITE BLOOD COUNT 7.3 K/mm3 (4.0-10.0)
[2019-06-18 11:17] LABS: ALBUMIN 2.9 g/dl (3.4-5.0); ALK PHOS 117 U/L (45-117); ANION GAP 8 MMOL/L (8-16); BILIRUBIN,TOTAL 0.9 mg/dL (0.2-1); BLOOD UREA NITROGEN 6.8 mg/dL (7-18); CALCIUM 7.7 mg/dL (8.5-10.1); CHLORIDE 104 mmol/L (98-107); CO2 28 mmol/L (21-32); CREATININE 0.6 mg/dL (0.55-1.3); GLUCOSE,RANDOM 85 mg/dL (74-106); SGOT/AST 28 U/L (15-37); SGPT/ALT 22 U/L (13-61); SODIUM 141 mmol/L (136-145); TOT PROT 6.1 g/dl (6.4-8.2)
[2019-06-18 11:18] LABS: POTASSIUM 2.9 mmol/L (3.5-5.1)
[2019-06-18] MEDS ORDERED: POTASSIUM CHLORIDE TABS 20 MEQ TABLET.ER (FP) PO ONE ×3 (11:19→13:45)
--- NOTE | 2019-06-18 11:38 | PDOC ---
Documentation entered by Joelle Juárez SCRIBE, acting as scribe for Robson Ball MD. Robson Ball MD: This documentation has been prepared by the Marquita pereira Brenda, SCRIBE, under my direction and personally reviewed by me in its entirety. I confirm that the documentation accurately reflects all work, treatment, procedures, and medical decision making performed by me. Attending Attestation - Resident Resident Name: EdilbertoJuan Mh - ED Attending Attestation I have performed the following: I have examined & evaluated the patient, The case was reviewed & discussed with the resident, I agree w/resident's findings & plan, Exceptions are as noted - HPI HPI: 06/18/19 09:39 The patient is a 64 year old male, with a significant PMH of EtOH abuse with multiple ED visits for intoxication, COPD, mesothelioma, chronic back pain who presents to the emergency department from [facility] with right sided, reproducible chest pain and intoxication. The patient denies chest pain, shortness of breath, headache and dizziness. Denies fever, chills and any GI symptoms. Denies any urinary symptoms. Allergies: NKDA Past surgical history: None reported Social history: Etoh abuse PCP: Lily Cornejo - Physicial Exam PE: 06/18/19 11:37 Patient is awake and alert, obese, in no distress Normocephalic and atraumatic; superficial abrasion to the apex of the calvarium PERRLA, EOMI, no nystagmus CTA RRR Awake and alert, moving all extremities symmetrically - Medical Decision Making 06/18/19 11:38 Patient is 64-year-old male with history of alcohol abuse, mesothelioma, COPD, presents with atraumatic, reproducible right-sided chest wall tenderness. EKG shows no evidence of acute ischemia. Chest x-ray is of poor quality but reveals no evidence of infiltrate or effusion. Will obtain 2 sets of cardiac enzymes. Will address electrolyte abnormalities. Patient is requesting detox. Will consider medical clearance. 06/18/19 11:57 Patient's potassium is noted to be 2.9. Magnesium of 1.3. Patient's QTC is noted to be 0.516. Will administer 2 g of magnesium sulfate. Will administer K -Dur p.o. Will repeat electrolytes. Will reassess.
--- NOTE | 2019-06-18 11:39 | PDOC ---
History of Present Illness <Robson Ball - Last Filed: 06/18/19 16:34> - General History Source: Patient Exam Limitations: No Limitations - History of Present Illness Initial Comments: 64 y/o M well known to the ED w/ pmh of EtOH abuse with multiple ED visits for intoxication, COPD, mesothelioma, chronic back pain presenting for alcohol intoxication and chest pain. Pt states that the chest pain is sharp and localized to his para-sternal region and is only noticeable when inspiring or palpating. Denies f/c/n/v/d/abdominal pain, headaches, numbness or tingling. 06/18/19 11:41 Associated Symptoms: reports: denies symptoms, chest pain. denies: cough, diaphoresis, fever/chills, headaches, nausea/vomiting, shortness of breath <Alexandr Casanova - Last Filed: 06/18/19 16:46> - General Chief Complaint: Chest Pain Stated Complaint: CHEST PAIN Time Seen by Provider: 06/18/19 08:53 Past History <Robson Ball - Last Filed: 06/18/19 16:34> - Travel Traveled outside of the country in the last 30 days: No Close contact w/someone who was outside of country & ill: No - Past Medical History Anemia: No Asthma: No Cancer: Yes (mesothelioma lung cancer) Cardiac Disorders: No CVA: No COPD: No CHF: No DVT: No Dementia: No Diabetes: No Dialysis: No GI Disorders: No Disorders: No HTN: Yes (non compliance) Hypercholesterolemia: Yes Kidney Stones: No Liver Disease: Yes (ETOH abuse) Psychiatric Problems: Yes (ETOH abuse) Seizures: No Thyroid Disease: No Lung CA: Yes (Mesothelioma) - Surgical History Abdominal Surgery: No Appendectomy: No Cardiac Surgery: No Cholecystectomy: No Lung Surgery: No Neurologic Surgery: No Orthopedic Surgery: No - Reproductive History Testicular Surgery: No - Immunization History Td Vaccination: Yes TDAP Vaccination: Yes Immunization Up to Date: Yes - Psycho Social/Smoking Cessation Hx Smoking Status: No Smoking History: Never smoked Have you smoked in the past 12 months: No Number of Cigarettes Smoked Daily: 0 If you are a former smoker, when did you quit?: 0 Cigars Per Day: 0 'Breaking Loose' booklet given: 09/22/17 Hx Alcohol Use: Yes Drug/Substance Use Hx: No Substance Use Type: Alcohol Hx Substance Use Treatment: Yes <Alexandr Casanova - Last Filed: 06/18/19 16:46> - Past Medical History Allergies/Adverse Reactions: Allergies Allergy/AdvReac Type Severity Reaction Status Date / Time Fish Containing Products Allergy Mild Swelling Verified 06/17/19 00:06 No Known Drug Allergies Allergy Verified 06/17/19 00:06 Home Medications: Ambulatory Orders NK [No Known Home Medication] 04/12/19 Review of Systems - Review of Systems Able to Perform ROS?: Yes Constitutional: Yes: Symptoms Reported, Weight Stable. No: Chills, Diaphoresis , Fever, Loss of Appetite HEENTM: Yes: Symptoms Reported. No: Blurred Vision Respiratory: Yes: Symptoms reported. No: Cough, Shortness of Breath Cardiac (ROS): Yes: Symptoms Reported, Chest Pain. No: Palpitations, Chest Tightness ABD/GI: Yes: Symptoms Reported. No: Constipated, Diarrhea, Nausea, Vomiting <Alexandr Casanova - Last Filed: 06/18/19 16:46> *Physical Exam - Vital Signs Last Vital Signs Temp Pulse Resp BP Pulse Ox 98.3 F 91 H 18 132/88 96 06/18/19 06:44 06/18/19 06:44 06/18/19 06:44 06/18/19 06:44 06/18/19 06:44 <Robson Ball - Last Filed: 06/18/19 16:34> - Vital Signs Last Vital Signs Temp Pulse Resp BP Pulse Ox 98.3 F 91 H 18 132/88 96 06/18/19 06:44 06/18/19 06:44 06/18/19 06:44 06/18/19 06:44 06/18/19 06:44 - Physical Exam General Appearance: Yes: Nourished, Appropriately Dressed HEENT: positive: EOMI, DOUGLAS, Normal ENT Inspection, Pharynx Normal Neck: positive: Trachea midline, Supple Respiratory/Chest: positive: Lungs Clear, Normal Breath Sounds. negative: Crackles, Wheezing Cardiovascular: positive: Regular Rhythm, Regular Rate, S1, S2. negative: Murmur, Gallop/S3, Gallop/S4 Vascular Pulses: Dorsalis-Pedis (R): 2+, Doralis-Pedis (L): 2+ Gastrointestinal/Abdominal: positive: Soft. negative: Guarding, Tenderness Integumentary: positive: Bruising Neurologic: positive: Alert, Normal Mood/Affect <Alexandr Casanova - Last Filed: 06/18/19 16:46> ED Treatment Course - LABORATORY CBC & Chemistry Diagram: 06/18/19 10:12 06/18/19 14:45 - ADDITIONAL ORDERS Additional order review: Laboratory Results 06/18/19 06/18/19 14:45 10:12 Sodium 141 141 Potassium 3.1 L 2.9 L* Chloride 102 104 Carbon Dioxide 32 28 Anion Gap 7 L 8 BUN 6.5 L 6.8 L Creatinine 0.6 0.6 Est GFR (CKD-EPI)AfAm 123.15 123.15 Est GFR (CKD-EPI)NonAf 106.25 106.25 Random Glucose 83 85 Calcium 7.9 L 7.7 L Magnesium 1.3 L Total Bilirubin 1.0 0.9 AST 28 28 ALT 22 22 Alkaline Phosphatase 125 H 117 Creatine Kinase 122 Troponin I < 0.02 Total Protein 6.3 L 6.1 L Albumin 3.0 L 2.9 L 06/18/19 10:12 RBC 3.69 L MCV 80.3 MCHC 31.1 L RDW 22.7 H MPV 7.7 Neutrophils % 72.0 Lymphocytes % 17.5 Monocytes % 8.1 Eosinophils % 1.6 D Basophils % 0.8 - Medications Given in the ED: ED Medications Discontinued Medications Generic Name Dose Route Start Last Admin Trade Name Freq PRN Reason Stop Dose Admin Chlordiazepoxide HCl 50 mg 06/18/19 09:43 06/18/19 10:48 Librium - PO 06/18/19 09:44 50 mg ONCE ONE Administration Magnesium Sulfate 2 gm 06/18/19 11:56 06/18/19 12:25 Magnesium Sulfate IVPB 06/18/19 11:57 2 gm ONCE ONE Administration Potassium Chloride 40 meq 06/18/19 11:19 06/18/19 11:44 K-Dur - PO 06/18/19 11:20 Not Given ONCE ONE Potassium Chloride 40 meq 06/18/19 11:45 06/18/19 12:09 Potassium Chloride Oral Liquid PO 06/18/19 11:46 40 meq ONCE ONE Administration Potassium Chloride 40 meq 06/18/19 13:45 06/18/19 16:28 K-Dur - PO 06/18/19 13:46 Not Given ONCE ONE Potassium Chloride 40 meq 06/18/19 15:36 06/18/19 16:28 Potassium Chloride Oral Liquid PO 06/18/19 15:37 40 meq ONCE ONE Administration Potassium Chloride 40 meq 06/18/19 16:11 06/18/19 16:29 Potassium Chloride Oral Liquid PO 06/18/19 16:12 Not Given ONCE ONE <Robson Ball - Last Filed: 06/18/19 16:34> - LABORATORY CBC & Chemistry Diagram: 06/18/19 10:12 06/18/19 14:45 - ADDITIONAL ORDERS Additional order review: Laboratory Results 06/18/19 10:12 Sodium 141 Potassium 2.9 L* Chloride 104 Carbon Dioxide 28 Anion Gap 8 BUN 6.8 L Creatinine 0.6 Est GFR (CKD-EPI)AfAm 123.15 Est GFR (CKD-EPI)NonAf 106.25 Random Glucose 85 Calcium 7.7 L Total Bilirubin 0.9 AST 28 ALT 22 Alkaline Phosphatase 117 Total Protein 6.1 L Albumin 2.9 L 06/18/19 10:12 RBC 3.69 L MCV 80.3 MCHC 31.1 L RDW 22.7 H MPV 7.7 Neutrophils % 72.0 Lymphocytes % 17.5 Monocytes % 8.1 Eosinophils % 1.6 D Basophils % 0.8 - RADIOLOGY Radiology Studies Ordered: Category Date Time Status CHEST X-RAY PORTABLE* [RAD] Stat Radiology 06/18/19 09:42 Completed - Medications Given in the ED: ED Medications Discontinued Medications Generic Name Dose Route Start Last Admin Trade Name Freq PRN Reason Stop Dose Admin Chlordiazepoxide HCl 50 mg 06/18/19 09:43 06/18/19 10:48 Librium - PO 06/18/19 09:44 50 mg ONCE ONE Administration <Alexandr Casanova - Last Filed: 06/18/19 16:46> Medical Decision Making - Medical Decision Making 64 y/o M w/ pmh of EtOH abuse with multiple ED visits for intoxication, COPD, mesothelioma, chronic back pain presenting for alcohol intoxication and Chest pain #Chest pain EKG sinus tachy with PACs, Left axis deviation, prolonged QT at QTc 516 trops neg #Hypokalemia Potassium 2.8 monitor lytes Repleted potassium Magnesium repleted #Alcohol intox No evidence of withdrawal (no shaking, AB pain, vomiting) Will give librium 50 now 06/18/19 11:54 06/18/19 12:00 <Alexandr Casanova - Last Filed: 06/18/19 16:46> Discharge - Discharge Information Problems reviewed: Yes - Admission Yes <Robson Ball - Last Filed: 06/18/19 16:34> <Alexandr Casanova - Last Filed: 06/18/19 16:46> - Discharge Information Clinical Impression/Diagnosis: Prolonged Q-T interval on ECG, Mesothelioma (pleural), Alcohol dependence with uncomplicated withdrawal, Hypokalemia, Hypomagnesemia Condition: Fair
[2019-06-18] MEDS ORDERED: POTASSIUM CHLORIDE ORAL LIQUID 20 MEQ/15 ML PO ONE ×3 (11:45→16:11)
[2019-06-18 11:48] LABS: MAGNESIUM 1.3 mg/dL (1.8-2.4)
[2019-06-18] MEDS ORDERED: MAGNESIUM SULF 50% (8.12 MEQ/2 ML-1 GM VIAL) IVPB ONE (11:56)
[2019-06-18] MEDS ORDERED: MAGNESIUM SULFATE IN WATER 2 GM/50 ML IVPB IVPB ONE (12:19)
[2019-06-18 12:28] LABS: ANISOCYTOSIS 2+
[2019-06-18 15:26] LABS: BLOOD UREA NITROGEN 6.5 mg/dL (7-18); CALCIUM 7.9 mg/dL (8.5-10.1); CREATININE 0.6 mg/dL (0.55-1.3); POTASSIUM 3.1 mmol/L (3.5-5.1); TOT PROT 6.3 g/dl (6.4-8.2)
[2019-06-18] MEDS ORDERED: POTASSIUM CHLORIDE 20 MEQ in SODIUM CHLORIDE 1,000 ML IVPB SCH (16:00)
[2019-06-18] MEDS ORDERED: SODIUM CHLORIDE 0.9%/KCL 20 MEQ/1,000 ML INFUS.BAG IV SCH (16:15)
[2019-06-18 16:58] LABS: MAGNESIUM 1.8 mg/dL (1.8-2.4)
--- NOTE | 2019-06-18 17:27 | HP ---
CHIEF COMPLAINT: Wants to get rehab from alcohol and chest pain PCP: He has none HISTORY OF PRESENT ILLNESS: 64 y/o M well known to the ED w/ pmh of EtOH abuse with multiple ED visits for intoxication, COPD, mesothelioma, chronic back pain presenting for alcohol intoxication and chest pain. Pt states that the chest pain is sharp and localized to his para-sternal region and is only noticeable when inspiring or palpating. Denies f/c/n/v/d/abdominal pain, headaches, numbness or tingling. Now he has no chest pain no fever no chills. I asked him in detail about the chest pain he said actually I do not have a chest pain additionally come to the hospital for rehab and detox. ER course was notable for: (1) multiple admissions to the hospital and ER visits from alcohol intoxication (2) multiple times AGAINST MEDICAL ADVICE admissions and discharges (3) Recent Travel: No travel history PAST MEDICAL HISTORY: Chronic smoker mesothelioma history of COPD chronic back pain and chronic alcoholism PAST SURGICAL HISTORY: He did remember Social History: Smoking: Chronic history of alcoholism and smoking but no drug use Alcohol: Drugs: Allergies Fish Containing Products Allergy (Mild, Verified 06/17/19 00:06) Swelling No Known Drug Allergies Allergy (Verified 06/17/19 00:06) HOME MEDICATIONS: Home Medications Medication Instructions Recorded NK [No Known Home Medication] 04/12/19 REVIEW OF SYSTEMS Head no dizziness Ear nose throat no acute epistaxis GI no nausea vomiting no urinary incontinence Neuro no history of seizures Endocrine no history of diabetes Rest review systems are negative PHYSICAL EXAMINATION Vital Signs - 24 hr 06/18/19 06:44 Temperature 98.3 F Pulse Rate 91 H Respiratory 18 Rate Blood Pressure 132/88 O2 Sat by Pulse 96 Oximetry (%) GENERAL: Awake, alert, and fully oriented, in no acute distress. HEAD: Normal with no signs of trauma. EYES: Pupils equal, round and reactive to light, extraocular movements intact, sclera anicteric, conjunctiva clear. No lid lag. EARS, NOSE, THROAT: Ears normal, nares patent, oropharynx clear without exudates. Moist mucous membranes. NECK: Normal range of motion, supple without lymphadenopathy, JVD, or masses. LUNGS: Coarse breath sound bilateral HEART: Regular rate and rhythm, normal S1 and S2 he has systolic murmur 2/6 chest border ABDOMEN: Soft, nontender, not distended, normoactive bowel sounds, no guarding, no rebound, no masses. No hepatomegaly or splenomegaly. MUSCULOSKELETAL: Normal range of motion at all joints. No bony deformities or tenderness. No CVA tenderness. UPPER EXTREMITIES: 2+ pulses, warm, well-perfused. No cyanosis. No clubbing. No peripheral edema. LOWER EXTREMITIES: 2+ pulses, warm, well-perfused. No calf tenderness. No peripheral edema. NEUROLOGICAL: Cranial nerves II-XII intact. Normal speech. Normal gait. Laboratory Results - last 24 hr 06/18/19 06/18/19 06/18/19 10:12 10:12 14:45 WBC 7.3 RBC 3.69 L Hgb 9.2 L Hct 29.7 L MCV 80.3 MCH 25.0 L MCHC 31.1 L RDW 22.7 H Plt Count 202 MPV 7.7 Absolute Neuts (auto) 5.2 Neutrophils % 72.0 Lymphocytes % 17.5 Monocytes % 8.1 Eosinophils % 1.6 D Basophils % 0.8 Nucleated RBC % 0 Hypochromia 1+ Anisocytosis 2+ Sodium 141 141 Potassium 2.9 L* 3.1 L Chloride 104 102 Carbon Dioxide 28 32 Anion Gap 8 7 L BUN 6.8 L 6.5 L Creatinine 0.6 0.6 Est GFR (CKD-EPI)AfAm 123.15 123.15 Est GFR (CKD-EPI)NonAf 106.25 106.25 Random Glucose 85 83 Calcium 7.7 L 7.9 L Magnesium 1.3 L 1.8 Total Bilirubin 0.9 1.0 AST 28 28 ALT 22 22 Alkaline Phosphatase 117 125 H Creatine Kinase 122 Troponin I < 0.02 Total Protein 6.1 L 6.3 L Albumin 2.9 L 3.0 L ASSESSMENT/PLAN: Alcohol intoxication versus alcohol withdrawals Start patient IV fluids and Librium protocol. Hypomagnesemia Patient given already IV magnesium sulfate in the ER, will start him on p.o. magnesium oxide twice a day for 1 mg Hypokalemia patient is low potassium he received multiple IV doses of potassium here level has come up to 3.1 I will start him on fluids containing IV potassium. For chest pain which is unlikely cardiac with prolonged QT interval which patient admit he does not have chest pain His troponin level is normal first set Will do a series of troponin troponin and start him on Protonix and baby aspirin. For cardiology evaluation at this time if troponins become positive we will call cardiac evaluation.
[2019-06-18] MEDS ORDERED: PANTOPRAZOLE 20 MG TABLET (FP) PO ONE (18:52)
[2019-06-18] MEDS ORDERED: ASPIRIN 81 MG CHEWABLE TABLETS ONE (18:52)
[2019-06-18] MEDS: D5-1/2NS+10 MEQ KCL - 10 MEQ/1,000 ML INFUS.BAG IV SCH (19:05)
[2019-06-18] MEDS: PANTOPRAZOLE 40 MG TABLET (FP) PO SCH (19:06)
[2019-06-18] MEDS: ASPIRIN 81 MG CHEWABLE TABLETS PO SCH (19:06)
[2019-06-18 20:56] LABS: ALBUMIN 2.7 g/dl (3.4-5.0); BLOOD UREA NITROGEN 5.3 mg/dL (7-18); CALCIUM 7.5 mg/dL (8.5-10.1); CREATININE 0.5 mg/dL (0.55-1.3); POTASSIUM 3.2 mmol/L (3.5-5.1); TOT PROT 5.9 g/dl (6.4-8.2)
[2019-06-18] MEDS: MAGNESIUM OXIDE 400 MG TABLET (FP) PO SCH (21:50)
[2019-06-18] MEDS: chlordiazePOXIDE HCL 25 MG CAPSULE PO SCH (21:50)
[2019-06-18] MEDS ORDERED: chlordiazePOXIDE HCL 25 MG CAPSULE PO SCH (23:00)
--- NOTE | 2019-06-18 23:14 | EKG ---
Test Reason : Blood Pressure : / mmHG Vent. Rate : 102 BPM Atrial Rate : 102 BPM P-R Int : 166 ms QRS Dur : 094 ms QT Int : 396 ms P-R-T Axes : 031 -30 048 degrees QTc Int : 516 ms SINUS TACHYCARDIA WITH PREMATURE ATRIAL COMPLEXES LEFT AXIS DEVIATION ABNORMAL ECG WHEN COMPARED WITH ECG OF 12-JUN-2019 02:12, NO SIGNIFICANT CHANGE WAS FOUND Confirmed by KY OVIEDO MD ([id number]) on 06/18/2019 11:14:24 PM Referred By: Confirmed By:KY OVIEDO MD
[2019-06-19] MEDS: D5-1/2NS+10 MEQ KCL - 10 MEQ/1,000 ML INFUS.BAG IV SCH (05:56)
[2019-06-19] MEDS: chlordiazePOXIDE HCL 25 MG CAPSULE PO SCH ×3 (05:56→22:39)
[2019-06-19 06:28] LABS: BASO % 0.6 % (0-2.0); EOS % 2.8 % (0-4.5); HEMATOCRIT 30.6 % (35.4-49); HEMOGLOBIN 9.7 GM/dL (11.7-16.9); LYMPH % 16.1 % (8-40); MCH 25.3 pg (25.7-33.7); MCHC 31.6 g/dl (32.0-35.9); MEAN CELL VOLUME 79.9 fl (80-96); MEAN PLT VOLUME 7.7 fl (7.5-11.1); MONO % 7.3 % (3.8-10.2); NEUT % 73.2 % (42.8-82.8); PLATELET COUNT 217 K/MM3 (134-434); RBC 3.83 M/mm3 (4.00-5.60); RDW 22.7 % (11.9-15.9); WHITE BLOOD COUNT 7.2 K/mm3 (4.0-10.0)
[2019-06-19 06:42] LABS: MAGNESIUM 1.5 mg/dL (1.8-2.4)
[2019-06-19] MEDS ORDERED: POTASSIUM CHLORIDE TABS 10 MEQ TABLET.ER (FP) PO ONE (07:24)
[2019-06-19 10:13] LABS: BLOOD UREA NITROGEN 4.6 mg/dL (7-18); CREATININE 0.6 mg/dL (0.55-1.3); POTASSIUM 3.4 mmol/L (3.5-5.1)
[2019-06-19] MEDS: ASPIRIN 81 MG CHEWABLE TABLETS PO SCH (11:05)
[2019-06-19] MEDS: PANTOPRAZOLE 40 MG TABLET (FP) PO SCH (11:05)
[2019-06-19] MEDS: MAGNESIUM OXIDE 400 MG TABLET (FP) PO SCH ×2 (11:05→22:40)
[2019-06-19] MEDS ORDERED: POTASSIUM CHLORIDE 20 MEQ PREMIX IVPB 100 ML IVPB ONE (12:36)
[2019-06-19] MEDS: KCL 10 MEQ IVPB 10 MEQ/100 ML INFUS.BAG IVPB SCH ×2 (12:54→15:01)
[2019-06-19] MEDS ORDERED: MAGNESIUM SULFATE IN WATER 2 GM/50 ML IVPB IVPB ONE (13:30)
[2019-06-19] MEDS ORDERED: MAGNESIUM SULF 50% (8.12 MEQ/2 ML-1 GM VIAL) IVPB ONE (13:30)
--- NOTE | 2019-06-19 15:20 | PN ---
Physical Exam: 64 M extensive h/o EtOH abuse with multiple ED visits for intoxication, COPD not on O2, mesothelioma, chronic back pain presenting for alcohol intoxication and chest pain. Pt states that the chest pain is sharp and localized to his para -sternal region and is only noticeable when inspiring or palpating. Denies falls. Denies f/c/n/v/d/abdominal pain, headaches, numbness or tingling. Currently chest pain free, no acute signs of Etoh withdrawal however continuing Librium as per CWA. Gait unstead, PT referral, patient asking to be placed in SNF as he cannot care for himself anymore. PE VS: 140/78BP, 73HR, 98.6F, 20RR GA: unsteady gait, AAox3, speaking in full sentences, unkempt HEENT NC/AT, EOMI, poor dentition, neck supple Chest CTAB, no wheezing/crackles CVS S1, S2+, RRR Abd obese, Soft, NT, no guarding Ext skin breaks LE b/l, no open wounds or pus Vital Signs - 24 hr 06/18/19 06/18/19 06/19/19 18:36 21:00 02:00 Temperature 98.1 F 97.3 F L Pulse Rate 87 87 Pulse Rate [ 88 Left] Respiratory 15 20 20 Rate Blood Pressure 170/90 146/91 Blood Pressure 125/79 [Arm] O2 Sat by Pulse 99 93 L Oximetry (%) 06/19/19 06/19/19 06/19/19 06:33 09:00 09:43 Temperature 97.5 F L 98.4 F Pulse Rate 83 87 Pulse Rate [ Left] Respiratory 20 20 Rate Blood Pressure 170/90 177/106 H Blood Pressure [Arm] O2 Sat by Pulse 95 Oximetry (%) 06/19/19 13:34 Temperature 98.6 F Pulse Rate 73 Pulse Rate [ Left] Respiratory 20 Rate Blood Pressure 140/78 Blood Pressure [Arm] O2 Sat by Pulse Oximetry (%) Current Medications Generic Name Dose Route Start Last Admin Trade Name Freq PRN Reason Stop Dose Admin Aspirin 81 mg 06/18/19 17:30 06/19/19 11:05 Asa - PO Not Given DAILY CAREY Chlordiazepoxide HCl 10 mg 06/21/19 00:00 Librium - PO 06/21/19 23:59 Q12H PRN Signs/symptoms of Withdrawal Chlordiazepoxide HCl 25 mg 06/18/19 21:00 06/19/19 12:42 Librium - PO 06/19/19 21:01 25 mg Q8H CAREY Administration Chlordiazepoxide HCl 10 mg 06/21/19 05:00 Librium - PO 06/21/19 21:01 Q8H CAREY Chlordiazepoxide HCl 10 mg 06/22/19 05:00 Librium - PO 06/22/19 05:01 ONCE ONE Chlordiazepoxide HCl 10 mg/ 15 mg 06/20/19 05:00 Chlordiazepoxide HCl 5 mg PO 06/20/19 21:01 Q8H CAREY Potassium Chloride/Dextrose/Sod Cl 10 meq in 1,000 mls @ 100 mls/hr 06/18/19 17:15 06/19/19 05:56 D5-1/2ns+10 Meq Kcl - IV 100 mls/hr ASDIR CAREY Administration Magnesium Oxide 400 mg 06/18/19 22:00 06/19/19 11:05 Mag-Ox - PO Not Given BID CAREY Pantoprazole Sodium 40 mg 06/18/19 17:30 06/19/19 11:05 Protonix - PO Not Given DAILY CAREY A/P: 64 M h/o chronic alcoholism, COPD, chronic LBP presents with alcohol intoxication and withdrawal on Librium as per CWA protocol. Patient stable. Alcohol dependence with withdrawal IV fluids, cont. Librium as per CWA protocol, Thiamine/FA/MV Fall risk, monitor CWA score, watch for withdrawal symptoms Aggressive electrolyte replacement (patient consistently refusing PO, prefers IV replacement), daily chem SW referral for possible intermediate manager placement as patient endorses he can no longer care for himself, is homeless and needs assistance. Chest pain resolved, Trops negative, likely MSK related no signs of trauma EKG no ischemic changes Cont. PPI, ASA FEN IV hydration, daily chem, Na restriction diet DVT PPX: Lovenox SC no signs of bleeding, Plt stable SW referral for disposition and living situation Visit type - Emergency Visit Emergency Visit: Yes ED Registration Date: 06/18/19 Care time: The patient presented to the Emergency Department on the above date and was hospitalized for further evaluation of their emergent condition. - New Patient This patient is new to me today: Yes Date on this admission: 06/19/19 - Critical Care Critical Care patient: No - Discharge Referral Referred to [facility] Med [facility] No
--- NOTE | 2019-06-19 17:06 | EKG ---
Test Reason : Blood Pressure : / mmHG Vent. Rate : 087 BPM Atrial Rate : 087 BPM P-R Int : 150 ms QRS Dur : 094 ms QT Int : 414 ms P-R-T Axes : 034 -24 051 degrees QTc Int : 498 ms NORMAL SINUS RHYTHM NONSPECIFIC ST AND T WAVE ABNORMALITY PROLONGED QT ABNORMAL ECG WHEN COMPARED WITH ECG OF 18-JUN-2019 06:48, PREMATURE ATRIAL COMPLEXES ARE NO LONGER PRESENT Confirmed by KY OVIEDO MD ([id number]) on 06/19/2019 5:05:48 PM Referred By: Confirmed By:KY OVIEDO MD
[2019-06-20] MEDS: D5-1/2NS+10 MEQ KCL - 10 MEQ/1,000 ML INFUS.BAG IV SCH ×2 (02:53→17:00)
[2019-06-20] MEDS ORDERED: chlordiazePOXIDE 5 MG CAPSULE ONE ×3 (06:15→20:43)
[2019-06-20] MEDS ORDERED: chlordiazePOXIDE HCL 10 MG CAPSULE ONE ×3 (06:16→20:43)
[2019-06-20] MEDS: CHLORDIAZEPOXIDE 10 MG, CHLORDIAZEPOXIDE 5 MG PO SCH ×3 (06:22→21:06)
[2019-06-20 07:09] LABS: BASO % 0.7 % (0-2.0); EOS % 3.2 % (0-4.5); HEMOGLOBIN 9.7 GM/dL (11.7-16.9); LYMPH % 19.2 % (8-40); MCH 25.3 pg (25.7-33.7); MCHC 31.4 g/dl (32.0-35.9); MEAN CELL VOLUME 80.6 fl (80-96); MEAN PLT VOLUME 7.7 fl (7.5-11.1); MONO % 6.2 % (3.8-10.2); NEUT % 70.7 % (42.8-82.8); PLATELET COUNT 224 K/MM3 (134-434); RBC 3.85 M/mm3 (4.00-5.60); RDW 22.5 % (11.9-15.9)
[2019-06-20 07:39] LABS: BLOOD UREA NITROGEN 3.7 mg/dL (7-18); CALCIUM 8.4 mg/dL (8.5-10.1); CREATININE 0.5 mg/dL (0.55-1.3); POTASSIUM 3.5 mmol/L (3.5-5.1)
[2019-06-20] MEDS: MAGNESIUM OXIDE 400 MG TABLET (FP) PO SCH ×2 (11:29→23:06)
[2019-06-20] MEDS: ASPIRIN 81 MG CHEWABLE TABLETS PO SCH (12:26)
[2019-06-20] MEDS: PANTOPRAZOLE 40 MG TABLET (FP) PO SCH (12:27)
--- NOTE | 2019-06-20 16:37 | PN ---
Progress Note (short form) - Note Progress Note: Hospitalist Medicine Pt frustrated. Looks comfortable. "go away" Vitals 06/20/19 12:30 Temperature 98.3 F Pulse Rate 90 Respiratory 20 Rate Blood Pressure 126/83 Physical Exam refused Laboratory Tests 06/20/19 06/20/19 06:28 06:28 WBC 7.0 Hgb 9.7 L Hct 31.0 L Plt Count 224 Sodium 139 Potassium 3.5 Chloride 105 Carbon Dioxide 27 Anion Gap 7 L BUN 3.7 L Creatinine 0.5 L Random Glucose 89 Imaging 06/18/19: EKG: NSR, rate 87bpm, qtc 498ms 06/18/19: EKG : +sinus tach, PAC's, rate 102bpm, L axis dev. qtc 516ms 06/18/19: CXR: old skeletal trauma. atelectatic changes at L base Assessment/Plan 64 y/o M well known to the ED w/ pmh of EtOH abuse with multiple ED visits for intoxication, COPD, mesothelioma, chronic back pain presenting for alcohol intoxication and chest pain. #Alcohol withdrawal -CIWA monitoring for withdrawal sx; pt refused this AM -c/w librium protocol -on thiamine, folic acid -c/w protonix #chest pain -trops (-) x2 -currently asymptomatic -started on baby asa qd #F/E/N d51/2 NS +10Kcl 100 cc/hr continue to follow lytes na controlled diet #PPX DVT: on asa, CORINNE's #Dispo monitoring on tele; for withdrawal sx on librium protocol d/w SW; pt will be unable to be placed
--- NOTE | 2019-06-20 17:11 | PN ---
Teaching Attending Note Name of Resident: Aida Cheng ATTENDING PHYSICIAN STATEMENT I saw and evaluated the patient. I reviewed the resident's note and discussed the case with the resident. I agree with the resident's findings and plan as documented. SUBJECTIVE: Patient has no complaints. He denies chest pain, palpitations, SOB. OBJECTIVE: Vital Signs Period Temp Pulse Resp BP Sys/Jang Pulse Ox Last 24 Hr 98 F-99.6 F 84-90 20-24 126-163/81-100 94-96 HEART: S1S2, RRR LUNGS: Clear ABDOMEN: Obese, soft, non-tender, non-distended, normal BS EXTREMITIES: No edema Laboratory Results - last 24 hr 06/20/19 06/20/19 06:28 06:28 WBC 7.0 RBC 3.85 L Hgb 9.7 L Hct 31.0 L MCV 80.6 MCH 25.3 L MCHC 31.4 L RDW 22.5 H Plt Count 224 MPV 7.7 Absolute Neuts (auto) 5.0 Neutrophils % 70.7 Lymphocytes % 19.2 Monocytes % 6.2 Eosinophils % 3.2 Basophils % 0.7 Nucleated RBC % 0 Sodium 139 Potassium 3.5 Chloride 105 Carbon Dioxide 27 Anion Gap 7 L BUN 3.7 L Creatinine 0.5 L Est GFR (CKD-EPI)AfAm 132.73 Est GFR (CKD-EPI)NonAf 114.52 Random Glucose 89 Calcium 8.4 L Current Medications Generic Name Dose Route Start Last Admin Trade Name Freq PRN Reason Stop Dose Admin Aspirin 81 mg 06/18/19 17:30 06/20/19 12:26 Asa - PO 81 mg DAILY CAREY Administration Chlordiazepoxide HCl 10 mg 06/21/19 00:00 Librium - PO 06/21/19 23:59 Q12H PRN Signs/symptoms of Withdrawal Chlordiazepoxide HCl 10 mg 06/21/19 05:00 Librium - PO 06/21/19 21:01 Q8H CAREY Chlordiazepoxide HCl 10 mg 06/22/19 05:00 Librium - PO 06/22/19 05:01 ONCE ONE Chlordiazepoxide HCl 10 mg/ 15 mg 06/20/19 05:00 06/20/19 12:20 Chlordiazepoxide HCl 5 mg PO 06/20/19 21:01 15 mg Q8H CAREY Administration Potassium Chloride/Dextrose/Sod Cl 10 meq in 1,000 mls @ 100 mls/hr 06/18/19 17:15 06/20/19 02:53 D5-1/2ns+10 Meq Kcl - IV 100 mls/hr ASDIR CAREY Administration Magnesium Oxide 400 mg 06/18/19 22:00 06/20/19 11:29 Mag-Ox - PO Not Given BID CAREY Pantoprazole Sodium 40 mg 06/18/19 17:30 06/20/19 12:27 Protonix - PO 40 mg DAILY CAREY Administration ASSESSMENT AND PLAN: This is a 64 year old man with a history of HTN, alcohol abuse, COPD, mesothelioma, chronic back pain who presented to the ED with chest pain and alcohol intoxication. 1. Alcohol withdrawal, uncomplicated - Continue Librium detox 2. Chest pain - Resolved 3. Continuous alcohol dependence - Start thiamine, folic acid, multivitamin 4. Alcohol intoxication - Resolved 5. Hypokalemia - Resolved 6. Hypomagnesemia - Continue MagOx 7. Anemia - Chronic, likely secondary to alcohol and poor nutrition - Hgb stable 8. HTN - On no medication 9. Morbid obesity with BMI 40.6 10. History of mesothelioma
[2019-06-21] MEDS ORDERED: chlordiazePOXIDE HCL 10 MG CAPSULE PO PRN
[2019-06-21] MEDS: chlordiazePOXIDE HCL 10 MG CAPSULE PO SCH ×3 (05:38→21:16)
[2019-06-21 06:22] LABS: BASO % 0.7 % (0-2.0); EOS % 3.3 % (0-4.5); HEMATOCRIT 30.1 % (35.4-49); HEMOGLOBIN 9.5 GM/dL (11.7-16.9); LYMPH % 17.4 % (8-40); MCH 25.6 pg (25.7-33.7); MCHC 31.5 g/dl (32.0-35.9); MEAN CELL VOLUME 81.2 fl (80-96); MEAN PLT VOLUME 7.8 fl (7.5-11.1); MONO % 6.8 % (3.8-10.2); NEUT % 71.8 % (42.8-82.8); PLATELET COUNT 246 K/MM3 (134-434); RBC 3.71 M/mm3 (4.00-5.60); RDW 23.5 % (11.9-15.9); WHITE BLOOD COUNT 7.2 K/mm3 (4.0-10.0)
[2019-06-21 06:44] LABS: BLOOD UREA NITROGEN 5.5 mg/dL (7-18); CALCIUM 8.6 mg/dL (8.5-10.1); CREATININE 0.6 mg/dL (0.55-1.3); MAGNESIUM 1.9 mg/dL (1.8-2.4); PHOSPHOROUS 3.1 mg/dL (2.5-4.9); POTASSIUM 3.8 mmol/L (3.5-5.1)
[2019-06-21] MEDS: FOLIC ACID 1 MG TABLET (FP) PO SCH (10:29)
[2019-06-21] MEDS: PANTOPRAZOLE 40 MG TABLET (FP) PO SCH (10:29)
[2019-06-21] MEDS: MULTIVITAMINS THER W-MINERALS COMBO TABLET (FP) PO SCH (10:29)
[2019-06-21] MEDS: ASPIRIN 81 MG CHEWABLE TABLETS PO SCH (10:29)
[2019-06-21] MEDS: THIAMINE HCL 100 MG TABLET (FP) PO SCH (10:29)
[2019-06-21] MEDS: MAGNESIUM OXIDE 400 MG TABLET (FP) PO SCH ×2 (10:29→21:16)
--- NOTE | 2019-06-21 14:36 | PN ---
Progress Note (short form) - Note Progress Note: Hospitalist Medicine Resting in bed, napping. Without complaint. Has been refusing tele Vitals 06/21/19 10:41 Temperature 98.5 F Pulse Rate 96 H Respiratory 16 Rate Blood Pressure 140/72 Physical Exam general: resting in bed, in NAD HEENT: NCAT neck: supple cardio: S1, S2 RRR. no r/m/g pulm: CTA b/l abdomen: obese, NT, ND LE: 2+ pulses, no edema neuro: wharf tender 2-12 grossly intact, however would not participate Laboratory Tests 06/21/19 06/21/19 05:35 05:35 WBC 7.2 Hgb 9.5 L Hct 30.1 L Plt Count 246 Sodium 138 Potassium 3.8 Chloride 105 Carbon Dioxide 26 Anion Gap 7 L BUN 5.5 L Creatinine 0.6 Random Glucose 87 Calcium 8.6 Phosphorus 3.1 Magnesium 1.9 Imaging 06/18/19: EKG: NSR, rate 87bpm, qtc 498ms 06/18/19: EKG : +sinus tach, PAC's, rate 102bpm, L axis dev. qtc 516ms 06/18/19: CXR: old skeletal trauma. atelectatic changes at L base Assessment/Plan 64 y/o M well known to the ED w/ pmh of EtOH abuse with multiple ED visits for intoxication, COPD, mesothelioma, chronic back pain presenting for alcohol intoxication and chest pain. #Alcohol withdrawal -c/w librium protocol -on thiamine, folic acid, multivitamin -c/w protonix #chest pain -trops (-) x2 -currently asymptomatic -started on baby asa qd #morbid obesity -BMI 40.6 -f/u reg dietary consult #F/E/N d51/2 NS +10Kcl 100 cc/hr continue to follow lytes na controlled diet #PPX DVT: on asa, CORINNE's #Dispo monitoring on tele; for withdrawal sx on librium protocol d/w SW; pt will be unable to be placed
--- NOTE | 2019-06-21 17:42 | PN ---
Teaching Attending Note Name of Resident: Aida Cheng ATTENDING PHYSICIAN STATEMENT I saw and evaluated the patient. I reviewed the resident's note and discussed the case with the resident. I agree with the resident's findings and plan as documented. SUBJECTIVE: No complaints. OBJECTIVE: Vital Signs Period Temp Pulse Resp BP Sys/Jang Pulse Ox Last 24 Hr 97.8 F-98.5 F 78-96 16-20 140-162/72-94 96-96 HEART: S1S2, RRR LUNGS: Clear ABDOMEN: Obese, soft, non-tender, non-distended, normal BS EXTREMITIES: No edema Laboratory Results - last 24 hr 06/19/19 06/21/19 06/21/19 05:45 05:35 05:35 WBC 7.2 RBC 3.71 L Hgb 9.5 L Hct 30.1 L MCV 81.2 MCH 25.6 L MCHC 31.5 L RDW 23.5 H Plt Count 246 MPV 7.8 Absolute Neuts (auto) 5.2 Neutrophils % 71.8 Lymphocytes % 17.4 Monocytes % 6.8 Eosinophils % 3.3 Basophils % 0.7 Nucleated RBC % 0 Sodium 138 Potassium 3.8 Chloride 105 Carbon Dioxide 26 Anion Gap 7 L BUN 5.5 L Creatinine 0.6 Est GFR (CKD-EPI)AfAm 123.15 Est GFR (CKD-EPI)NonAf 106.25 Random Glucose 87 Calcium 8.6 Phosphorus 3.1 Magnesium 1.9 Phospholipids 217 Current Medications Generic Name Dose Route Start Last Admin Trade Name Freq PRN Reason Stop Dose Admin Aspirin 81 mg 06/18/19 17:30 06/21/19 10:29 Asa - PO 81 mg DAILY CAREY Administration Chlordiazepoxide HCl 10 mg 06/21/19 00:00 Librium - PO 06/21/19 23:59 Q12H PRN Signs/symptoms of Withdrawal Chlordiazepoxide HCl 10 mg 06/21/19 05:00 06/21/19 14:07 Librium - PO 06/21/19 21:01 10 mg Q8H CAREY Administration Chlordiazepoxide HCl 10 mg 06/22/19 05:00 Librium - PO 06/22/19 05:01 ONCE ONE Folic Acid 1 mg 06/21/19 10:00 06/21/19 10:29 Folic Acid - PO 1 mg DAILY CAREY Administration Potassium Chloride/Dextrose/Sod Cl 10 meq in 1,000 mls @ 100 mls/hr 06/18/19 17:15 06/20/19 17:00 D5-1/2ns+10 Meq Kcl - IV Not Given ASDIR CAREY Magnesium Oxide 400 mg 06/18/19 22:00 06/21/19 10:29 Mag-Ox - PO 400 mg BID CAREY Administration Multivitamins/Minerals 1 each 06/21/19 10:00 06/21/19 10:29 Theragran-M PO 1 each DAILY CAREY Administration Pantoprazole Sodium 40 mg 06/18/19 17:30 06/21/19 10:29 Protonix - PO 40 mg DAILY CAREY Administration Thiamine HCl 100 mg 06/21/19 10:00 06/21/19 10:29 Vitamin B1 - PO 100 mg DAILY CAREY Administration ASSESSMENT AND PLAN: This is a 64 year old man with a history of HTN, alcohol abuse, COPD, mesothelioma, chronic back pain who presented to the ED with chest pain and alcohol intoxication. 1. Alcohol withdrawal, uncomplicated - Continue Librium detox 2. Chest pain - Resolved 3. Continuous alcohol dependence - Continue thiamine, folic acid, multivitamin 4. Alcohol intoxication - Resolved 5. Hypokalemia - Resolved 6. Hypomagnesemia - Continue MagOx 7. Anemia - Chronic, likely secondary to alcohol and poor nutrition - Hgb stable 8. HTN - On no medication 9. Morbid obesity with BMI 40.6 10. History of mesothelioma
[2019-06-21] MEDS: D5-1/2NS+10 MEQ KCL - 10 MEQ/1,000 ML INFUS.BAG IV SCH (21:11)
[2019-06-22] MEDS ORDERED: chlordiazePOXIDE HCL 10 MG CAPSULE PO ONE (05:00)
[2019-06-22 06:26] VITALS: BP 168/90; PULSE 88; TEMP 98.1
[2019-06-22 08:19] LABS: BLOOD UREA NITROGEN 7.9 mg/dL (7-18); CREATININE 0.6 mg/dL (0.55-1.3); POTASSIUM 3.9 mmol/L (3.5-5.1)
[2019-06-22] MEDS: ASPIRIN 81 MG CHEWABLE TABLETS PO SCH (10:04)
[2019-06-22] MEDS: MAGNESIUM OXIDE 400 MG TABLET (FP) PO SCH (10:04)
[2019-06-22] MEDS: MULTIVITAMINS THER W-MINERALS COMBO TABLET (FP) PO SCH (10:04)
[2019-06-22] MEDS: THIAMINE HCL 100 MG TABLET (FP) PO SCH (10:04)
[2019-06-22] MEDS: FOLIC ACID 1 MG TABLET (FP) PO SCH (10:04)
[2019-06-22] MEDS: PANTOPRAZOLE 40 MG TABLET (FP) PO SCH (10:04)
--- NOTE | 2019-06-22 15:35 | DS ---
Physical Exam: SUBJECTIVE: This AM, pt belligerent. "You can't discharge me. I have green mucus and a fever." No fever recorded. Later on , pt eloped. OBJECTIVE: Vital Signs Period Temp Pulse Resp BP Sys/Jang Pulse Ox Last 24 Hr 98.0 F-98.8 F 88-99 138-168/89-96 93 PHYSICAL EXAM refused in AM LABS Laboratory Results - last 24 hr 06/22/19 06:08 Sodium 136 Potassium 3.9 Chloride 103 Carbon Dioxide 24 Anion Gap 9 BUN 7.9 Creatinine 0.6 Est GFR (CKD-EPI)AfAm 123.15 Est GFR (CKD-EPI)NonAf 106.25 Random Glucose 96 Calcium 9.0 06/18/19 06/19/19 06/20/19 10:12 05:45 06:28 WBC 7.3 7.2 7.0 Hgb 9.2 L 9.7 L 9.7 L Hct 29.7 L 30.6 L 31.0 L Plt Count 202 217 224 06/21/19 05:35 WBC 7.2 Hgb 9.5 L Hct 30.1 L Plt Count 246 06/18/19 06/19/19 06/19/19 20:10 05:45 05:45 Sodium 139 139 Potassium 3.2 L 3.4 L Carbon Dioxide 28 26 Anion Gap 8 9 BUN 5.3 L 4.6 L Creatinine 0.5 L 0.6 Calcium 7.5 L 8.0 L Magnesium 1.5 L Total Bilirubin 1.0 AST 28 ALT 20 Alkaline Phosphatase 116 Total Protein 5.9 L Albumin 2.7 L Phospholipids 217 06/20/19 06/21/19 06/22/19 06:28 05:35 06:08 Sodium 139 138 136 Potassium 3.5 3.8 3.9 Carbon Dioxide 27 26 24 Anion Gap 7 L 7 L 9 BUN 3.7 L 5.5 L Creatinine 0.5 L 0.6 0.6 Calcium 8.4 L 8.6 9.0 Magnesium 1.9 Total Bilirubin AST ALT Alkaline Phosphatase Total Protein Albumin Phospholipids Imaging 06/18/19: EKG: NSR, rate 87bpm, qtc 498ms 06/18/19: EKG : +sinus tach, PAC's, rate 102bpm, L axis dev. qtc 516ms 06/18/19: CXR: old skeletal trauma. atelectatic changes at L base HOSPITAL COURSE: Date of Admission:06/18/19 Date of Discharge: 06/22/19 64 y/o M well known to the ED w/ pmh of EtOH abuse with multiple ED visits for intoxication, COPD, mesothelioma, chronic back pain presenting for alcohol intoxication and chest pain. #Alcohol withdrawal -completed librium protocol -was on thiamine, folic acid, multivitamin during hospital stay. eloped before meds could be given. has no pharmacy. #chest pain -trops (-) x2 -currently asymptomatic -was started on baby asa qd during hospital stay #morbid obesity -BMI 40.6 -was seen by dietary; refused help #F/E/N was on d51/2 NS +10Kcl 100 cc/hr #Dispo eloped d/w SW; pt unable to be placed Minutes to complete discharge: 48 Discharge Summary Problems reviewed: Yes Reason For Visit: PROLONGED QT INTERVAL HYPOKALEMIA Condition: Fair - Instructions Disposition: ELOPED - Home Medications Comprehensive Discharge Medication List: Ambulatory Orders NK [No Known Home Medication] 04/12/19 This patient is new to me today: No Emergency Visit: No Critical Care patient: No - Discharge Referral Referred to [facility] Med P.C.: No
--- NOTE | 2019-06-22 18:47 | PN ---
Teaching Attending Note Name of Resident: Aida Cheng ATTENDING PHYSICIAN STATEMENT I saw and evaluated the patient. I reviewed the resident's note and discussed the case with the resident. I agree with the resident's findings and plan as documented. Patient was to be discharged but he eloped before he was seen.
== END 2019-06-22 10:54 | disposition left against medical advice (07) | DRG 425 ==
LOC: JER 05:15 → JERBED 16:35 → J4S 20:44
PROVIDERS: ADMIT Internal Medicine; ATTEND Internal Medicine
DX: E87.6 Hypokalemia (principal); E83.42 Hypomagnesemia; E66.01 Morbid (severe) obesity due to excess calories; Z68.41 Body mass index [BMI] 40.0-44.9, adult; F10.220 Alcohol dependence with intoxication, uncomplicated; F10.230 Alcohol dependence with withdrawal, uncomplicated; J44.9 Chronic obstructive pulmonary disease, unspecified; C45.9 Mesothelioma, unspecified; M54.9 Dorsalgia, unspecified; R94.31 Abnormal electrocardiogram [ECG] [EKG]; R07.9 Chest pain, unspecified; D64.9 Anemia, unspecified
CPT/HCPCS: 36415; 71045-TC-FY; 80048; 80053; 82550; 83735; 84100; 84311; 84484; 85025; 93005; 93010; 99285-25

== ENCOUNTER 2019-06-22 18:23 | Emergency (ER) | payer OTHER ==
[2019-06-22 18:57] VITALS: TEMP 97.9; BMI 32.1
--- NOTE | 2019-06-22 19:35 | PDOC ---
History of Present Illness - General Chief Complaint: Alcohol intoxication Stated Complaint: INTOXICATED Time Seen by Provider: 06/22/19 19:19 - History of Present Illness Initial Comments: 06/22/19 19:35 HPI: 64 y/o undomiciled M with hx of EtOH abuse with multiple ED visits for intoxication, COPD, mesothelioma, chronic back pain recently eloped this afternoon from the general medical floors BIBEMS for intoxication and foul odor. He believes he never left the hospital and is complaining of back pain, chest pain, and SOB. He is agitated and shouting. Refusing to provide additional information. PMHx: as noted above ROS: as noted SHx: Denies tobacco use; no alcohol use; no rec drugs Allergies: NKDA ROS: limited 2/2 to patient participation PE: GENERAL: Awake, alert, and oriented, no acute distress HEAD: No signs of trauma, normocephalic, atraumatic EYES: EOMI, sclera anicteric, conjunctiva clear ENT: Auricles normal inspection, hearing grossly normal, nares patent, oropharynx clear without exudates. Moist mucosa NECK: Normal ROM, no lymphadenopathy LUNGS: No increased work of breathing, symmetrical chest rise, clear to auscultation bilaterally, no wheezes, crackles or rhonchi HEART: Regular rate and rhythm, normal S1 and S2, no murmur, peripheral pulses 2 + and equal bilaterally. ABDOMEN: Soft, nondistended, nontender, normoactive bowel sounds. No guarding, no rebound. No masses. No CVAT MUSCULOSKELETAL: Normal inspection, FROM NEUROLOGICAL: Cranial nerves II through XII grossly intact. Normal speech, normal gait, no focal sensorimotor deficits SKIN: Warm, Dry, normal turgor, no rashes or lesions noted Past History - Past Medical History Allergies/Adverse Reactions: Allergies Allergy/AdvReac Type Severity Reaction Status Date / Time Fish Containing Products Allergy Mild Swelling Verified 06/17/19 00:06 No Known Drug Allergies Allergy Verified 06/17/19 00:06 Home Medications: Ambulatory Orders NK [No Known Home Medication] 04/12/19 Anemia: No Asthma: No Cancer: Yes (mesothelioma lung cancer) Cardiac Disorders: No CVA: No COPD: No CHF: No DVT: No Dementia: No Diabetes: No Dialysis: No GI Disorders: No Disorders: No HTN: Yes (non compliance) Hypercholesterolemia: Yes Kidney Stones: No Liver Disease: Yes (ETOH abuse) Psychiatric Problems: Yes (ETOH abuse) Seizures: No Thyroid Disease: No Lung CA: Yes (Mesothelioma) - Surgical History Abdominal Surgery: No Appendectomy: No Cardiac Surgery: No Cholecystectomy: No Lung Surgery: No Neurologic Surgery: No Orthopedic Surgery: No - Reproductive History Testicular Surgery: No - Immunization History Td Vaccination: Yes TDAP Vaccination: Yes Immunization Up to Date: Yes - Psycho Social/Smoking Cessation Hx Smoking Status: No Smoking History: Never smoked Have you smoked in the past 12 months: No Number of Cigarettes Smoked Daily: 0 If you are a former smoker, when did you quit?: 0 Cigars Per Day: 0 Information on smoking cessation initiated: No 'Breaking Loose' booklet given: 09/22/17 Hx Alcohol Use: No Drug/Substance Use Hx: No Substance Use Type: Alcohol Hx Substance Use Treatment: Yes *Physical Exam - Vital Signs Last Vital Signs Temp Pulse Resp BP Pulse Ox 97.9 F 87 18 97/61 97 06/22/19 18:43 06/22/19 18:43 06/22/19 18:43 06/22/19 18:43 06/22/19 18:43 ED Treatment Course - LABORATORY CBC & Chemistry Diagram: 06/22/19 22:25 06/22/19 22:25 Medical Decision Making - Medical Decision Making 06/23/19 01:46 64 y/o undomiciled M with hx of EtOH abuse with multiple ED visits for intoxication, COPD, mesothelioma, chronic back pain recently eloped this afternoon from the general medical floors BIBEMS for intoxication and foul odor , now complaining of chest pain, back pain, SOB. VSS, AF. PE unremarkable -cbc, cmp, trop, mg, bnp, ekg 06/23/19 01:47 labs unremarkable will wait for 2nd trop and dispo accordingly 06/23/19 05:16 trop negative; will Dc home with pcp followup Discharge - Discharge Information Problems reviewed: Yes Clinical Impression/Diagnosis: Intoxication Chest pain Qualifiers: Chest pain type: unspecified Qualified Code(s): R07.9 - Chest pain, unspecified Condition: Stable Disposition: HOME - Follow up/Referral Referrals: Lily Cornejo [Primary Care Provider] - - Patient Discharge Instructions Patient Printed Discharge Instructions: DI for Alcohol Abuse Additional Instructions: Additional Instructions: Please return to the emergency department with any new or worsening symptoms or concerns. Please follow up with your primary care physician within 72 hours. - Post Discharge Activity
[2019-06-22] MEDS ORDERED: ACETAMINOPHEN 500 MG TABLET (FP) PO ONE (20:17)
[2019-06-22] MEDS ORDERED: METHOCARBAMOL 500 MG TABLET PO ONE (20:17)
--- NOTE | 2019-06-22 21:46 | PDOC ---
Documentation entered by Smith Douglas SCRIBE, acting as scribe for Skye Rashid DO. Skye Rashid DO: This documentation has been prepared by the Misael pereira Daniel, SCRIBE, under my direction and personally reviewed by me in its entirety. I confirm that the documentation accurately reflects all work, treatment, procedures, and medical decision making performed by me. Attending Attestation - Resident Resident Name: Bianca Frausto - ED Attending Attestation I have performed the following: I have examined & evaluated the patient, The case was reviewed & discussed with the resident, I agree w/resident's findings & plan, Exceptions are as noted - HPI HPI: 06/22/19 21:07 The patient is a 64 year old male with a past medical history of chronic back pain, alcohol abuse, mesothelioma, and COPD here today for evaluation of alcohol intoxication. Patient eloped earlier today and was brought back by EMS after being found intoxicated. Patient currently complains of back pain, shortness of breath, and chest pain. Allergies: fish containing products, NKDA - Physicial Exam PE: 06/22/19 21:08 Constitutional: +intoxicated. Awake, alert, oriented. No acute distress. Head: Normocephalic. Atraumatic Eyes: PERRL. EOMI. Conjunctivae are not pale. ENT: Mucous membranes are dry and intact. Posterior pharynx without exudates or erythema. Uvula midline. Neck: Supple. Full ROM. No lymphadenopathy. Cardiovascular: Regular rate. Regular rhythm. S1, S2 regular. Distal pulses are 2+ and symmetric. Pulmonary/Chest: No evidence of respiratory distress. Clear to auscultation bilaterally No wheezing, rales or rhonchi. Abdominal: +obese. Soft and non-distended. There is no tenderness. No rebound , guarding or rigidity. No organomegaly. No palpable masses. Good bowel sounds. Back: No CVA tenderness. Musculoskeletal: No edema. No cyanosis. No clubbing. Full range of motion in all extremities. No calf tenderness. Radial/pedal pulses are intact and 2+ bilaterally Skin: Skin is warm and dry. No petechiae. No purpura. Neurological: Alert and oriented to person, place, and time. Cranial nerves II -XII are grossly intact. Normal speech. Strength is grossly symmetric. No sensory deficits. Psychiatric: Good eye contact. Normal interaction, affect and behavior. - Medical Decision Making 06/22/19 21:44 a/p: 64yo male with hx of chronic alcohol abuse with cp today -pt denies etoh abuse -pt c/o cp -denies si/hi -pt eloped from the hospital earlier today -pt states chronic back pain, but feels a horse kicked him in the chest -will send labs, ekg -pt refusing CXR -will monitor and reassess 06/22/19 23:23 trop neg 06/23/19 02:48 pt pending repeat trop Heart Score/ECG Review - ECG Intrepretation Comment:: 06/22/19 21:45 sinus at 93, q waves septally, baseline artifact, no acute st/t wave findings
[2019-06-22 22:35] LABS: BASO % 0.7 % (0-2.0); EOS % 2.5 % (0-4.5); HEMATOCRIT 32.4 % (35.4-49); HEMOGLOBIN 9.8 GM/dL (11.7-16.9); LYMPH % 20.7 % (8-40); MCH 25.1 pg (25.7-33.7); MCHC 30.2 g/dl (32.0-35.9); MEAN PLT VOLUME 7.3 fl (7.5-11.1); NEUT % 69.1 % (42.8-82.8); PLATELET COUNT 295 K/MM3 (134-434); RDW 22.8 % (11.9-15.9); WHITE BLOOD COUNT 7.8 K/mm3 (4.0-10.0)
[2019-06-22 23:01] LABS: ANISOCYTOSIS 3+; PLATELET ESTIMATE ADEQUATE; TARGET CELLS 1+
[2019-06-22 23:06] LABS: ALK PHOS 108 U/L (45-117); ANION GAP 10 MMOL/L (8-16); BILIRUBIN,TOTAL 0.3 mg/dL (0.2-1); CALCIUM 8.9 mg/dL (8.5-10.1); CHLORIDE 105 mmol/L (98-107); CO2 25 mmol/L (21-32); CREATININE 0.7 mg/dL (0.55-1.3); GLUCOSE,RANDOM 95 mg/dL (74-106); MAGNESIUM 1.9 mg/dL (1.8-2.4); POTASSIUM 3.5 mmol/L (3.5-5.1); SGOT/AST 37 U/L (15-37); SGPT/ALT 32 U/L (13-61); SODIUM 140 mmol/L (136-145); TOT PROT 6.6 g/dl (6.4-8.2)
[2019-06-23] MEDS ORDERED: ACETAMINOPHEN 325 MG TABLET (FP) PO ONE (00:52)
[2019-06-23 06:51] VITALS: BP 107/65; PULSE 84
--- NOTE | 2019-06-23 11:50 | EKG ---
Test Reason : Blood Pressure : / mmHG Vent. Rate : 093 BPM Atrial Rate : 093 BPM P-R Int : 178 ms QRS Dur : 092 ms QT Int : 396 ms P-R-T Axes : 038 -25 017 degrees QTc Int : 492 ms NORMAL SINUS RHYTHM SEPTAL INFARCT , AGE UNDETERMINED ABNORMAL ECG WHEN COMPARED WITH ECG OF 18-JUN-2019 14:37, SEPTAL INFARCT IS NOW PRESENT NONSPECIFIC T WAVE ABNORMALITY NOW EVIDENT IN INFERIOR LEADS Confirmed by CONCETTA RICHMOND, ANGELINA ([id number]) on 06/23/2019 11:49:57 AM Referred By: Confirmed By:ANGELINA HYLTON MD
--- NOTE | 2019-06-24 13:56 | EKG ---
Test Reason : Blood Pressure : / mmHG Vent. Rate : 097 BPM Atrial Rate : 097 BPM P-R Int : 146 ms QRS Dur : 092 ms QT Int : 378 ms P-R-T Axes : 031 -42 036 degrees QTc Int : 480 ms SINUS RHYTHM WITH PREMATURE ATRIAL COMPLEXES LEFT AXIS DEVIATION PROLONGED QT ABNORMAL ECG WHEN COMPARED WITH ECG OF 22-JUN-2019 21:22, PREMATURE ATRIAL COMPLEXES ARE NOW PRESENT CRITERIA FOR SEPTAL INFARCT ARE NO LONGER PRESENT Confirmed by RAY VENEGAS MD ([id number]) on 06/24/2019 1:56:17 PM Referred By: Confirmed By:RAY VENEGAS MD
== END 2019-06-23 06:50 | disposition home or self-care (01) ==
LOC: JER 18:23
DX: F10.220 Alcohol dependence with intoxication, uncomplicated (principal); R07.9 Chest pain, unspecified; I10 Essential (primary) hypertension; J44.9 Chronic obstructive pulmonary disease, unspecified; M54.5 Low back pain; G89.29 Other chronic pain; C45.9 Mesothelioma, unspecified; Z59.0 Homelessness; Z91.013 Allergy to seafood
CPT/HCPCS: 36415; 80053; 82550; 83735; 83880; 84484; 85025; 93005; 93010; 99284-25

== ENCOUNTER 2019-06-25 14:49 | Emergency (ER) | payer OTHER ==
[2019-06-25 15:24] VITALS: PULSE 94; TEMP 97.8; BMI 38.7
--- NOTE | 2019-06-25 18:07 | PDOC ---
History of Present Illness - General History Source: Patient Exam Limitations: Intoxication - History of Present Illness Initial Comments: 06/25/19 18:01 Patient is a 64-year-old male with past medical history of chronic back pain, mesothelioma, COPD and alcohol abuse who is well-known to the ED, who presents with acute alcohol intoxication. The patient states he has no complaints except for being "freezing cold" at this time. He is sleeping during my examination and offers little history. He states he would just like to sleep. <Yesy García - Last Filed: 06/25/19 23:54> <Fabiana Woodard - Last Filed: 06/26/19 01:39> - General Chief Complaint: Alcohol intoxication Stated Complaint: ALCOHOL INTOXICATION Time Seen by Provider: 06/25/19 17:42 Past History - Past Medical History Anemia: No Asthma: No Cancer: Yes (mesothelioma lung cancer) Cardiac Disorders: No CVA: No COPD: No CHF: No DVT: No Dementia: No Diabetes: No Dialysis: No GI Disorders: No Disorders: No HTN: Yes (non compliance) Hypercholesterolemia: Yes Kidney Stones: No Liver Disease: Yes (ETOH abuse) Psychiatric Problems: Yes (ETOH abuse) Seizures: No Thyroid Disease: No Lung CA: Yes (Mesothelioma) - Surgical History Abdominal Surgery: No Appendectomy: No Cardiac Surgery: No Cholecystectomy: No Lung Surgery: No Neurologic Surgery: No Orthopedic Surgery: No - Reproductive History Testicular Surgery: No - Immunization History Td Vaccination: Yes TDAP Vaccination: Yes Immunization Up to Date: Yes - Psycho Social/Smoking Cessation Hx Smoking Status: No Smoking History: Unknown if ever smoked Have you smoked in the past 12 months: No Number of Cigarettes Smoked Daily: 0 If you are a former smoker, when did you quit?: 0 Cigars Per Day: 0 Information on smoking cessation initiated: No 'Breaking Loose' booklet given: 09/22/17 Hx Alcohol Use: No Drug/Substance Use Hx: No Substance Use Type: Alcohol Hx Substance Use Treatment: Yes <Yesy García - Last Filed: 06/25/19 23:54> <Fabiana Woodard - Last Filed: 06/26/19 01:39> - Past Medical History Allergies/Adverse Reactions: Allergies Allergy/AdvReac Type Severity Reaction Status Date / Time Fish Containing Products Allergy Mild Swelling Verified 06/17/19 00:06 No Known Drug Allergies Allergy Verified 06/17/19 00:06 Home Medications: Ambulatory Orders NK [No Known Home Medication] 04/12/19 Review of Systems - Review of Systems Able to Perform ROS?: No (Intoxicated) <Yesy García - Last Filed: 06/25/19 23:54> *Physical Exam - Vital Signs Last Vital Signs Temp Pulse Resp BP Pulse Ox 97.8 F 94 H 16 120/76 95 06/25/19 15:22 06/25/19 15:22 06/25/19 15:22 06/25/19 15:22 06/25/19 15:22 - Physical Exam 06/25/19 18:03 - Physical Exam General Appearance: Nourished, Appropriately Dressed, No Distress, EtOH on breath HEENT: EOMI, Normal Voice, Hearing Grossly Normal, No tongue fasciculations Neck: Supple, No Decreased range of motion Respiratory/Chest: Lungs Clear, Normal Breath Sounds. No Respiratory Distress, No Accessory Muscle Use Cardiovascular: Regular Rhythm, Regular Rate, S1, S2 Gastrointestinal/Abdominal: Normal Bowel Sounds, Soft. Non-tender, No Guarding , No Rebound, No Rigidity Musculoskeletal: Normal Inspection. No Decreased Range of Motion Extremity: Normal Capillary Refill, Normal Inspection Integumentary: Normal Color, Dry. No Rash Neurologic: , Slurred speech intoxicated but responding appropriately to my commands. <Yesy García - Last Filed: 06/25/19 23:54> - Vital Signs Last Vital Signs Temp Pulse Resp BP Pulse Ox 97.8 F 94 H 18 165/98 91 L 06/25/19 15:22 06/25/19 23:24 06/25/19 23:24 06/25/19 23:24 06/25/19 23:24 <Fabiana Woodard - Last Filed: 06/26/19 01:39> Medical Decision Making - Medical Decision Making 06/25/19 17:42 Pt resting comfortably on the stretcher without complaints. 06/25/19 20:27 Pt drinking water without difficulty. He does not want anything to eat. He is speaking in full sentences. 06/25/19 23:54 Pt continues to rest comfortably in the ED. He has not had any complaints while here. He has had an entired contained of iced water but has not wanted anything to eat. The patient has been endorsed to Dr. Green for continued evaluation and treamtent. <Yesy García - Last Filed: 06/25/19 23:54> - Medical Decision Making I reviewed the case with the mid-level practitioner and agree with the mid- level practitioner's assessment, diagnosis and disposition. <Fabiana Woodard - Last Filed: 06/26/19 01:39> Discharge - Discharge Information Problems reviewed: Yes <Yesy García - Last Filed: 06/25/19 23:54> <Fabiana Woodard - Last Filed: 06/26/19 01:39> - Discharge Information Clinical Impression/Diagnosis: Alcohol intoxication Qualifiers: Complication of substance-induced condition: uncomplicated Qualified Code(s): F10.920 - Alcohol use, unspecified with intoxication, uncomplicated Condition: Stable - Follow up/Referral Referrals: Lily Cornejo [Primary Care Provider] - - Patient Discharge Instructions - Post Discharge Activity
[2019-06-25 23:25] VITALS: BP 165/98
--- NOTE | 2019-06-25 23:53 | PDOC ---
*Physical Exam - Vital Signs Last Vital Signs Temp Pulse Resp BP Pulse Ox 97.8 F 94 H 18 165/98 91 L 06/25/19 15:22 06/25/19 23:24 06/25/19 23:24 06/25/19 23:24 06/25/19 23:24 Medical Decision Making - Medical Decision Making 06/25/19 23:52 Sign out from day team Patient is a 64-year-old male with past medical history of chronic back pain, mesothelioma, COPD and alcohol abuse who is well-known to the ED, who presents with acute alcohol intoxication. Pt is comfortably sleeping on re-eval, no signs of withdrawal. Pt left AMA. Discharge - Discharge Information Problems reviewed: Yes Clinical Impression/Diagnosis: Alcohol intoxication Qualifiers: Complication of substance-induced condition: uncomplicated Qualified Code(s): F10.920 - Alcohol use, unspecified with intoxication, uncomplicated Condition: Stable - Follow up/Referral Referrals: Lily Cornejo [Primary Care Provider] - - Patient Discharge Instructions - Post Discharge Activity
== END 2019-06-26 07:00 | disposition home or self-care (01) ==
LOC: JER 14:49
DX: F10.220 Alcohol dependence with intoxication, uncomplicated (principal); I10 Essential (primary) hypertension; C45.9 Mesothelioma, unspecified; M54.5 Low back pain; G89.29 Other chronic pain; J44.9 Chronic obstructive pulmonary disease, unspecified; Z59.0 Homelessness; Z91.013 Allergy to seafood
CPT/HCPCS: 99282-25

== ENCOUNTER 2019-06-26 15:57 | Emergency (ER) | payer OTHER ==
[2019-06-26 17:27] VITALS: BP 132/71; PULSE 75; TEMP 97.8; BMI 32.1
--- NOTE | 2019-06-26 18:19 | PDOC ---
Attending Attestation - Resident Resident Name: Fabiana Munguia - ED Attending Attestation I have performed the following: I have examined & evaluated the patient, The case was reviewed & discussed with the resident, I agree w/resident's findings & plan, Exceptions are as noted - HPI HPI: 06/26/19 18:18 64 yo male
--- NOTE | 2019-06-26 18:27 | PDOC ---
Documentation entered by Beata Keen SCRIBE, acting as scribe for Sue Casanova MD. Sue Casanova MD: This documentation has been prepared by the Osmani pereira Sammi, SCRIBE, under my direction and personally reviewed by me in its entirety. I confirm that the documentation accurately reflects all work, treatment, procedures, and medical decision making performed by me. Attending Attestation - Resident Resident Name: Elisabeth MunguiaFabiana - ED Attending Attestation I have performed the following: I have examined & evaluated the patient, The case was reviewed & discussed with the resident, I agree w/resident's findings & plan, Exceptions are as noted - HPI HPI: 06/26/19 18:47 The patient is a 64 year old male who presents to the ED for evaluation of alcohol intoxication. - Physicial Exam PE: 06/26/19 19:46 intoxicated 64 yo ,well known known to our ED, BIBA disheveled with AOB head :no scalp lacerations face: no facial hematomas or abrasions lungs no wheezing cvs [id number] abd protuberant extremities chronic left arm pain neuro AOB,answers simple questions 06/26/19 19:51 - Medical Decision Making 06/26/19 19:55 The patient was admitted for prolonged QT in June 18 to June 22 and his last labs were done June 22 In reviewing his chemistries they were unremarkable with a normal creatinine, negative troponin and normal electrolytes
--- NOTE | 2019-06-26 18:29 | PDOC ---
History of Present Illness - General Chief Complaint: Alcohol intoxication Stated Complaint: ALCOHOL INTOXICATION Time Seen by Provider: 06/26/19 18:18 - History of Present Illness Initial Comments: HPI: 64yo M with PMH of HTN, mesothelioma, chronic ETOH abuse presenting to the ED with alcohol intoxication. Patient is well known to this ED and was last seen here yesterday. He admits last drinking alcohol this morning. When asked to quantify his alcohol consumption, he stated: "I had enough." Denies fevers, chills, chest pain, or shortness of breath. He reports chronic back pain that is at its baseline. ROS: Constitutional: no fever, no chills HEENT: no throat pain, no dysphagia Cardiovascular: no chest pain, no palpitations Respiratory: no cough, no shortness of breath Gastrointestinal: no abdominal pain, no nausea Genitourinary: no dysuria, no hematuria Musculoskeletal: +back pain, no leg pain Skin: no rash, no itching Neurologic: no headache, no weakness PE: General: Awake, alert, and fully oriented, disheveled, slurred speech, somnolent but arousable Head: No signs of trauma Eyes: EOMI, sclera anicteric ENT: Moist mucus membranes Neck: Normal ROM, supple Lungs: Lungs clear, Normal breath sounds Cardio: Regular rhythm, S1 and S2 present Abdomen: Soft, nontender. No guarding, no rebound, no masses Extremities: Normal range of motion, Distal pulses present SKIN: Warm, Dry, normal turgor Neurologic: Cranial nerves II through XII grossly intact. Slurred speech. Unstable gait ED Course/MDM: DDX including but not limited to intoxication, alcohol withdrawal, malingering Last had labwork in 06/22/2019 which did not indicate acute pathology Awaiting clinical sobriety 06/26/19 18:29 Patient sleeping in stretcher 06/26/19 20:28 Patient asking to leave the ED Able to ambulate with steady gait Answering questions with non-slurred speech Return precautions Stable for discharge Past History - Past Medical History Allergies/Adverse Reactions: Allergies Allergy/AdvReac Type Severity Reaction Status Date / Time Fish Containing Products Allergy Mild Swelling Verified 06/17/19 00:06 No Known Drug Allergies Allergy Verified 06/17/19 00:06 Home Medications: Ambulatory Orders NK [No Known Home Medication] 04/12/19 Anemia: No Asthma: No Cancer: Yes (mesothelioma lung cancer) Cardiac Disorders: No CVA: No COPD: No CHF: No DVT: No Dementia: No Diabetes: No Dialysis: No GI Disorders: No Disorders: No HTN: Yes (non compliance) Hypercholesterolemia: Yes Kidney Stones: No Liver Disease: Yes (ETOH abuse) Psychiatric Problems: Yes (ETOH abuse) Seizures: No Thyroid Disease: No Lung CA: Yes (Mesothelioma) - Surgical History Abdominal Surgery: No Appendectomy: No Cardiac Surgery: No Cholecystectomy: No Lung Surgery: No Neurologic Surgery: No Orthopedic Surgery: No - Reproductive History Testicular Surgery: No - Immunization History Td Vaccination: Yes TDAP Vaccination: Yes Immunization Up to Date: Yes - Psycho Social/Smoking Cessation Hx Smoking Status: No Smoking History: Former smoker Have you smoked in the past 12 months: No Number of Cigarettes Smoked Daily: 0 If you are a former smoker, when did you quit?: 0 Cigars Per Day: 0 Information on smoking cessation initiated: No 'Breaking Loose' booklet given: 09/22/17 Hx Alcohol Use: Yes Drug/Substance Use Hx: No Substance Use Type: Alcohol Hx Substance Use Treatment: Yes *Physical Exam - Vital Signs Last Vital Signs Temp Pulse Resp BP Pulse Ox 97.8 F 75 18 132/71 93 L 06/26/19 15:58 06/26/19 15:58 06/26/19 15:58 06/26/19 15:58 06/26/19 15:58 Discharge - Discharge Information Problems reviewed: Yes Clinical Impression/Diagnosis: Alcohol abuse Disposition: HOME - Follow up/Referral Referrals: Lily Cornejo [Primary Care Provider] - - Patient Discharge Instructions - Post Discharge Activity
== END 2019-06-27 00:12 | disposition home or self-care (01) ==
LOC: JER 15:57
DX: F10.220 Alcohol dependence with intoxication, uncomplicated (principal); I10 Essential (primary) hypertension; C45.9 Mesothelioma, unspecified; Z91.14 Patient's other noncompliance with medication regimen; Z91.013 Allergy to seafood; Z59.0 Homelessness
CPT/HCPCS: 99282-25

== ENCOUNTER 2019-07-10 20:03 | Emergency (ER) | payer OTHER ==
[2019-07-10 20:18] VITALS: BP 134/84; TEMP 97.9; BMI 27.8
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
[2019-07-11] MEDS ORDERED: ALBUTEROL SO4 2.5/IPRATROPIUM 0.5 INH SOL 3 ML VIAL.NEB. NEB ONE ×2 (03:16)
[2019-07-11] MEDS ORDERED: ASPIRIN 325 MG ENTERIC COATED TABLET (FP) ONE (05:02)
[2019-07-11 06:50] VITALS: PULSE 86
[2019-07-11 08:19] LABS: BASO % 0.7 % (0-2.0); EOS % 1.2 % (0-4.5); HEMATOCRIT 27.7 % (35.4-49); HEMOGLOBIN 8.6 GM/dL (11.7-16.9); LYMPH % 21.6 % (8-40); MCH 24.5 pg (25.7-33.7); MCHC 31.1 g/dl (32.0-35.9); MEAN CELL VOLUME 78.9 fl (80-96); MEAN PLT VOLUME 7.4 fl (7.5-11.1); MONO % 8.3 % (3.8-10.2); NEUT % 68.2 % (42.8-82.8); PLATELET COUNT 192 K/MM3 (134-434); RBC 3.51 M/mm3 (4.00-5.60); RDW 22.2 % (11.9-15.9); WHITE BLOOD COUNT 5.2 K/mm3 (4.0-10.0)
[2019-07-11 09:02] LABS: ALBUMIN 2.8 g/dl (3.4-5.0); ALK PHOS 110 U/L (45-117); ANION GAP 11 MMOL/L (8-16); BILIRUBIN,TOTAL 0.6 mg/dL (0.2-1); BLOOD UREA NITROGEN 6.1 mg/dL (7-18); CALCIUM 7.9 mg/dL (8.5-10.1); CHLORIDE 109 mmol/L (98-107); CO2 26 mmol/L (21-32); CREATININE 0.6 mg/dL (0.55-1.3); GLUCOSE,RANDOM 77 mg/dL (74-106); SGOT/AST 33 U/L (15-37); SGPT/ALT 20 U/L (13-61); SODIUM 146 mmol/L (136-145); TOT PROT 6.1 g/dl (6.4-8.2)
[2019-07-11 09:09] LABS: POTASSIUM 2.8 mmol/L (3.5-5.1)
[2019-07-11] MEDS ORDERED: POTASSIUM CHLORIDE TABS 20 MEQ TABLET.ER (FP) PO ONE ×2 (09:10→09:14)
[2019-07-11] MEDS ORDERED: POTASSIUM CHLORIDE ORAL LIQUID 20 MEQ/15 ML PO ONE ×2 (09:10→09:29)
[2019-07-11] MEDS ORDERED: POTASSIUM CHLORIDE ORAL LIQUID 20 MEQ/15 ML ONE ×2 (09:14→09:29)
--- NOTE | 2019-07-11 09:49 | PDOC ---
*Physical Exam - Vital Signs Last Vital Signs Temp Pulse Resp BP Pulse Ox 97.9 F 86 16 134/84 96 07/10/19 20:16 07/11/19 06:50 07/11/19 06:50 07/10/19 20:16 07/11/19 06:50 - Physical Exam General Appearance: Yes: Alcohol on Breath, Intoxicated HEENT: positive: Scleral Icterus (R), Scleral Icterus (L) Neck: positive: Supple Respiratory/Chest: positive: Lungs Clear Cardiovascular: positive: Regular Rhythm, Regular Rate, S1, S2 Vascular Pulses: Dorsalis-Pedis (R): 2+, Doralis-Pedis (L): 2+ Gastrointestinal/Abdominal: positive: Tender, Protuberent, Distended Rectal Exam: positive: deferred Lymphatic: negative: Adenopathy Musculoskeletal: positive: Decreased Range of Motion Extremity: positive: Pelvis Stable Integumentary: positive: Jaundice Neurologic: positive: Respond to painful stimul ED Treatment Course - LABORATORY CBC & Chemistry Diagram: 07/11/19 07:08 07/11/19 07:08 - ADDITIONAL ORDERS Additional order review: Laboratory Results 07/11/19 07:08 Sodium 146 H Potassium 2.8 L* Chloride 109 H Carbon Dioxide 26 Anion Gap 11 BUN 6.1 L Creatinine 0.6 Est GFR (CKD-EPI)AfAm 123.15 Est GFR (CKD-EPI)NonAf 106.25 Random Glucose 77 Calcium 7.9 L Total Bilirubin 0.6 AST 33 ALT 20 Alkaline Phosphatase 110 Creatine Kinase 252 Creatine Kinase Index 2.2 CK-MB (CK-2) 5.6 H Troponin I < 0.02 Total Protein 6.1 L Albumin 2.8 L 07/11/19 07:08 RBC 3.51 L MCV 78.9 L MCHC 31.1 L RDW 22.2 H MPV 7.4 L Neutrophils % 68.2 Lymphocytes % 21.6 Monocytes % 8.3 Eosinophils % 1.2 Basophils % 0.7 - RADIOLOGY Radiology Studies Ordered: Category Date Time Status ABDOMEN & PELVIS CT WITH CONTR [CT] Stat CT Scan 07/11/19 08:49 Ordered - Medications Given in the ED: ED Medications Discontinued Medications Generic Name Dose Route Start Last Admin Trade Name Freq PRN Reason Stop Dose Admin Albuterol/Ipratropium 3 amp 07/11/19 03:16 07/11/19 03:21 Duoneb - NEB 07/11/19 03:17 3 amp ONCE ONE Administration Potassium Chloride 40 meq 07/11/19 09:10 07/11/19 09:47 K-Dur - PO 07/11/19 09:11 Not Given ONCE ONE Potassium Chloride 20 meq 07/11/19 09:10 07/11/19 09:15 Potassium Chloride Oral Liquid PO 07/11/19 09:11 20 meq ONCE ONE Administration Potassium Chloride 40 meq 07/11/19 09:29 07/11/19 09:33 Potassium Chloride Oral Liquid PO 07/11/19 09:30 40 meq ONCE ONE Administration Medical Decision Making - Medical Decision Making Patient signed out to me from night team pending XR's, Labs, and re-assessment Labs: Hypokalemic - repleting orally. XR: old fractures, no acute fractures noted Re-assessment: Patient has a tender abdomen - CTAP ordered - Patient Eloped before CTAP could be performed Discharge - Discharge Information Problems reviewed: Yes Clinical Impression/Diagnosis: Hypokalemia Abdominal pain Qualifiers: Abdominal location: generalized Qualified Code(s): R10.84 - Generalized abdominal pain Condition: Guarded Disposition: ELOPED - Admission No - Follow up/Referral Referrals: Lily Cornejo [Primary Care Provider] - - Patient Discharge Instructions - Post Discharge Activity
[2019-07-11 13:25] LABS: MAGNESIUM 1.4 mg/dL (1.8-2.4)
--- NOTE | 2019-07-11 13:46 | EKG ---
Test Reason : Blood Pressure : / mmHG Vent. Rate : 096 BPM Atrial Rate : 096 BPM P-R Int : 152 ms QRS Dur : 098 ms QT Int : 400 ms P-R-T Axes : 037 -28 072 degrees QTc Int : 505 ms SINUS RHYTHM WITH MARKED SINUS ARRHYTHMIA WITH OCCASIONAL and atrial complexes LEFT AXIS DEVIATION ABNORMAL ECG WHEN COMPARED WITH ECG OF 23-JUN-2019 03:38, PREMATURE VENTRICULAR COMPLEXES ARE NOW PRESENT Confirmed by Veena Zurita ([id number]) on 07/11/2019 1:45:59 PM Referred By: Confirmed By:Veena Zurita
[2019-07-11 14:42] LABS: ANISOCYTOSIS 2+; MACROCYTOSIS 1+; OVALOCYTE 1+; PLATELET ESTIMATE NORMAL
== END 2019-07-11 13:05 ==
LOC: JER 20:03
DX: E87.6 Hypokalemia (principal); R10.84 Generalized abdominal pain; M79.641 Pain in right hand; W51.XXXA Accidental striking against or bumped into by another person, initial encounter; Y93.89 Activity, other specified; Y92.89 Other specified places as the place of occurrence of the external cause; Y99.8 Other external cause status; F10.220 Alcohol dependence with intoxication, uncomplicated; I10 Essential (primary) hypertension; C45.9 Mesothelioma, unspecified; Z59.0 Homelessness
CPT/HCPCS: 36415; 71045-TC-FY; 73110-TC-RT-FY; 73130-TC-RT-FY; 80053; 82550; 82553; 83735; 84484; 85025; 93005; 93010; 99284-25

== ENCOUNTER 2019-07-11 20:42 | Emergency (ER) | payer OTHER ==
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
[2019-07-11 21:29] VITALS: PULSE 84; TEMP 98.2; BMI 32.8
--- NOTE | 2019-07-12 03:33 | PDOC ---
*Physical Exam - Vital Signs Last Vital Signs Temp Pulse Resp BP Pulse Ox 98.2 F 84 22 H 135/71 95 07/11/19 21:27 07/11/19 21:27 07/11/19 21:27 07/11/19 21:27 07/11/19 21:27 Medical Decision Making - Medical Decision Making 07/12/19 03:33 Patient seen by the advanced practice provider under my direct supervision. Ancillary testing reviewed as necessary. I agree with plan as outlined by the advanced practice provider. Discharge - Discharge Information Problems reviewed: Yes Clinical Impression/Diagnosis: Alcohol dependence with intoxication - Follow up/Referral - Patient Discharge Instructions - Post Discharge Activity
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
[2019-07-12 05:51] VITALS: BP 130/87
== END 2019-07-12 05:53 | disposition home or self-care (01) ==
LOC: JER 20:42
DX: F10.220 Alcohol dependence with intoxication, uncomplicated (principal); I10 Essential (primary) hypertension; C45.9 Mesothelioma, unspecified; Z91.013 Allergy to seafood; Z59.0 Homelessness; Z87.81 Personal history of (healed) traumatic fracture
CPT/HCPCS: 99282-25

== ENCOUNTER 2019-07-15 20:39 | Emergency (ER) | payer OTHER ==
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
[2019-07-15 20:57] VITALS: BP 116/66; PULSE 91; TEMP 97.6; BMI 32.1
[2019-07-15] MEDS ORDERED: AMOX TR/POT CLAV 875MG/125MG TABLETS (FP) PO ONE (22:44)
[2019-07-15] MEDS ORDERED: DIPHTH,PERTUSS(ACELL),TET 0.5 ML DISP.SYRIN IM ONE ×2 (22:49→23:04)
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
[2019-07-15] MEDS ORDERED: AMOX TR/POT CLAV 875MG/125MG TABLETS (FP) ONE (23:04)
--- NOTE | 2019-07-16 19:13 | PDOC ---
Patient Follow-up (Call Back) - Post ED Follow - Up Reason for Call Back: Radiology (Per Dr. Mora possible foriegn body and soft tissue mass in the hand. Recommending futher imaging should symptoms persist. There is no accurate phone number or address to get in touch with the patient.) <Kelsi Oliver - Last Filed: 07/16/19 19:12> - Disposition Additional Instructions/Notes: I will send an email to all of our ER staff notifying them of the metallic FB in the right had 4th digit. NExt time patient appears he will be asked to follow with hand surgeon/admitted for IV abx and hand eval inpatient if needed. <Lorri Kumar - Last Filed: 07/16/19 21:23> - Post ED Follow - Up Condition at time of discharge: Good Disposition at time of original discharge: HOME
== END 2019-07-16 06:29 | disposition home or self-care (01) ==
LOC: JER 20:39
DX: F10.220 Alcohol dependence with intoxication, uncomplicated (principal); S60.454A Superficial foreign body of right ring finger, initial encounter; X58.XXXA Exposure to other specified factors, initial encounter; Y93.89 Activity, other specified; Y92.89 Other specified places as the place of occurrence of the external cause; Y99.8 Other external cause status; I10 Essential (primary) hypertension; C45.9 Mesothelioma, unspecified; Z91.013 Allergy to seafood; Z91.14 Patient's other noncompliance with medication regimen; Z59.0 Homelessness
CPT/HCPCS: 73130-TC-RT-FY; 90715; 99282-25

== ENCOUNTER 2019-07-18 15:11 | Inpatient (IN) | payer OTHER ==
[2019-07-18 15:29] VITALS: BMI 33.0
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
[2019-07-18 17:19] LABS: INR 1.05 (0.83-1.09); PROTHROMBIN TIME (PATIENT) 12.4 SEC (9.7-13.0)
[2019-07-18 17:22] LABS: ACTIVATED PTT 29.8 SECONDS (25.2-36.5)
--- NOTE | 2019-07-18 17:52 | PDOC ---
Documentation entered by Mat Shaw SCRIBE, acting as scribe for Skye Rashid DO. Skye Rashid DO: This documentation has been prepared by the Colin pereira Xhesika, SCRIBE, under my direction and personally reviewed by me in its entirety. I confirm that the documentation accurately reflects all work, treatment, procedures, and medical decision making performed by me. Attending Attestation - Resident Resident Name: DelfinEdilberto - ED Attending Attestation I have performed the following: I have examined & evaluated the patient, The case was reviewed & discussed with the resident, I agree w/resident's findings & plan, Exceptions are as noted - HPI HPI: 07/18/19 17:34 The patient is a 64 year old male with a significant PMH of 2/2 multiple visits , mesothelioma, undomiciled who presents to the emergency department [facility] for mid sternal chest pain. Patient denies any alleviating or aggravating factors. Pt states his chest pain is nonradiating. Pt reports b/l LE swelling. The patient denies shortness of breath, headache and dizziness. Denies fever, chills, cough, nausea, vomiting, diarrhea and constipation. Allergies: NKDA - Physicial Exam PE: 07/18/19 17:37 GENERAL: Awake, alert, +disheveled. +alcohol on breath. +urine all over clothes HEAD: No signs of trauma EYES: PERRLA, EOMI, sclera anicteric, conjunctiva clear ENT: Auricles normal inspection, hearing grossly normal, nares patent, +poor dentition NECK: Normal ROM, supple, no lymphadenopathy, JVD, or masses LUNGS: Breath sounds equal, clear to auscultation bilaterally. No wheezes, and no crackles HEART: Regular rate and rhythm, normal S1 and S2, no murmurs, rubs or gallops ABDOMEN:+protuberant. Soft, nontender, normoactive bowel sounds. No guarding, no rebound. No masses EXTREMITIES: +b/l LE swelling. Normal range of motion. No clubbing or cyanosis. SKIN: Warm, Dry, normal turgor, no rashes or lesions noted. - Medical Decision Making 07/18/19 17:50 I, Dr. Skye Kurkowski, DO, attest that this document has been prepared under my direction and personally reviewed by me in its entirety. I further attest, that it accurately reflects all work, treatment, procedures and medical decision -making performed by me. a/p: 64yo male with chronic alcohol abuse with cp -pt states cp today- midsternal -pt is disheveled and smelling of urine -pt denies cough -pt denies f/c -pt with LE swelling -deleon end labs, ekg, -will monitor and reassess 07/18/19 19:33 trop 0.06 k 2.3 mg 1.3 will replace eletrolytes will place in obs for electrolyte disorder and cp
[2019-07-18 18:10] LABS: EOS % 2.3 % (0-4.5); HEMATOCRIT 27.9 % (35.4-49); HEMOGLOBIN 8.7 GM/dL (11.7-16.9); LYMPH % 20.6 % (8-40); MCH 24.9 pg (25.7-33.7); MEAN CELL VOLUME 80.2 fl (80-96); MEAN PLT VOLUME 7.6 fl (7.5-11.1); MONO % 7.9 % (3.8-10.2); NEUT % 68.2 % (42.8-82.8); PLATELET COUNT 196 K/MM3 (134-434); RBC 3.48 M/mm3 (4.00-5.60); RDW 23.3 % (11.9-15.9)
[2019-07-18 18:45] LABS: ANISOCYTOSIS 2+
[2019-07-18 18:50] LABS: ALBUMIN 2.7 g/dl (3.4-5.0); BILIRUBIN,TOTAL 0.3 mg/dL (0.2-1); BLOOD UREA NITROGEN 6.5 mg/dL (7-18); CALCIUM 8.1 mg/dL (8.5-10.1); CREATININE 0.7 mg/dL (0.55-1.3); MAGNESIUM 1.3 mg/dL (1.8-2.4); N-TERMINAL BNP 268.6 pg/ml (5-125)
[2019-07-18 18:52] LABS: POTASSIUM 2.8 mmol/L (3.5-5.1)
[2019-07-18] MEDS ORDERED: AMOX TR/POT CLAV 875MG/125MG TABLETS (FP) PO ONE (18:53)
[2019-07-18] MEDS ORDERED: POTASSIUM CHLORIDE TABS 20 MEQ TABLET.ER (FP) PO ONE ×2 (18:53→21:05)
[2019-07-18] MEDS ORDERED: ASPIRIN 81 MG CHEWABLE TABLETS PO ONE (18:54)
[2019-07-18] MEDS ORDERED: chlordiazePOXIDE HCL 25 MG CAPSULE PO ONE (19:28)
[2019-07-18] MEDS ORDERED: ASPIRIN 81 MG CHEWABLE TABLETS ONE (21:03)
[2019-07-18] MEDS ORDERED: chlordiazePOXIDE HCL 25 MG CAPSULE ONE (21:03)
[2019-07-18] MEDS ORDERED: AMOX TR/POT CLAV 875MG/125MG TABLETS (FP) ONE (21:03)
[2019-07-18] MEDS ORDERED: MAGNESIUM SULF 50% (8.12 MEQ/2 ML-1 GM VIAL) ONE (21:04)
--- NOTE | 2019-07-18 21:18 | HP ---
Admitting History and Physical - Primary Care Physician PCP: Orin Ornelas - Admission History of Present Illness: 64M well known to the ED 2/2 multiple visits, mesothelioma, undomiciled here today complaining of chest pain. He states that he has pain in his lower sternal area of his chest. He does not say when it started. He does not say if he has SOB. He reports that his legs are swollen bilaterally. Denies fevers, chills, nausea, vomiting. Patient gives tangential history and states that he is intoxicated. Denies abdominal pain. - Past Medical History Cardiovascular: Yes: HTN, Hyperlipdemia Pulmonary: Yes: Cancer (Mesothelioma) Psych: Yes: Addictions (EtOH) Musculoskeletal: Yes: Chronic low back pain - Past Surgical History Past Surgical History: Yes: None, Colonoscopy (pt may have had - not sure). 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 History of Recent Travel: No Home Medications - Allergies Allergies/Adverse Reactions: Allergies Allergy/AdvReac Type Severity Reaction Status Date / Time Fish Containing Products Allergy Mild Swelling Verified 07/15/19 20:52 No Known Drug Allergies Allergy Verified 07/15/19 20:52 - Home Medications Home Medications: Ambulatory Orders Unobtainable 07/19/19 Physical Examination Vital Signs: Vital Signs Temperature 97.1 F L 07/18/19 15:26 Pulse Rate 100 H 07/18/19 15:26 Respiratory Rate 18 07/18/19 15:26 Blood Pressure 111/65 07/18/19 15:26 O2 Sat by Pulse Oximetry (%) 95 07/18/19 15:26 Eyes: Yes: WNL HENT: Yes: Atraumatic Neck: Yes: Supple Cardiovascular: Yes: Regular Rate and Rhythm Respiratory: Yes: Rhonchi Gastrointestinal: Yes: Normal Bowel Sounds Extremities: Yes: WNL Edema: Yes Edema: LLE: 1+, RLE: 1+ Neurological: Yes: Other (drowsy) Labs: CBC, BMP 07/18/19 18:00 07/18/19 18:00 Imaging - Results X-ray: Report Reviewed Problem List - Problems (1) Chest pain Assessment/Plan: tele monitoring' cardiac profile cardiology consult Code(s): R07.9 - CHEST PAIN, UNSPECIFIED (2) Alcohol abuse Assessment/Plan: detox consult librium protocol Code(s): F10.10 - ALCOHOL ABUSE, UNCOMPLICATED (3) GERD (gastroesophageal reflux disease) Assessment/Plan: protonix Code(s): K21.9 - GASTRO-ESOPHAGEAL REFLUX DISEASE WITHOUT ESOPHAGITIS Qualifiers: (4) Homelessness Code(s): Z59.0 - HOMELESSNESS (5) Hypokalemia Assessment/Plan: replace Code(s): E87.6 - HYPOKALEMIA Assessment/Plan Laboratory Tests 07/18/19 07/18/19 07/18/19 16:34 18:00 18:00 WBC 5.0 RBC 3.48 L Hgb 8.7 L Hct 27.9 L MCV 80.2 MCH 24.9 L MCHC 31.0 L RDW 23.3 H Plt Count 196 MPV 7.6 Absolute Neuts (auto) 3.4 Neutrophils % 68.2 Lymphocytes % 20.6 Monocytes % 7.9 Eosinophils % 2.3 D Basophils % 1.0 Nucleated RBC % 0 Anisocytosis 2+ PT with INR 12.40 INR 1.05 PTT (Actin FS) 29.8 Sodium 146 H Potassium 2.8 L* Chloride 108 H Carbon Dioxide 29 Anion Gap 9 BUN 6.5 L Creatinine 0.7 Est GFR (CKD-EPI)AfAm 115.59 Est GFR (CKD-EPI)NonAf 99.73 Random Glucose 89 Calcium 8.1 L Magnesium 1.3 L Total Bilirubin 0.3 AST 41 H ALT 25 Alkaline Phosphatase 98 Creatine Kinase 235 Creatine Kinase Index 2.6 CK-MB (CK-2) 6.3 H Troponin I 0.06 H B-Natriuretic Peptide 268.6 H Total Protein 6.0 L Albumin 2.7 L Active Medications Generic Name Dose Route Start Last Admin Trade Name Freq PRN Reason Stop Dose Admin Heparin Sodium (Porcine) 5,000 unit 07/18/19 22:00 07/19/19 10:12 Heparin - SQ 5,000 unit BID CAREY Administration Pantoprazole Sodium 40 mg 07/18/19 22:00 07/19/19 10:12 Protonix Iv IVPUSH 40 mg BID CAREY Administration
[2019-07-18] MEDS ORDERED: KCL 10 MEQ IVPB 30 MEQ/300 ML INFUS.BAG IVPB ONE (22:10)
[2019-07-18] MEDS ORDERED: PANTOPRAZOLE SODIUM 40 MG VIAL ONE (22:41)
[2019-07-18] MEDS ORDERED: HEPARIN NA (PORCINE) 5,000 UNITS/ML 1ML VIAL ONE (22:41)
[2019-07-18] MEDS: HEPARIN NA (PORCINE) 5,000 UNITS/ML 1ML VIAL SQ SCH (22:50)
[2019-07-18] MEDS: PANTOPRAZOLE SODIUM 40 MG VIAL IVPUSH SCH (22:50)
[2019-07-18] MEDS: KCL 10 MEQ IVPB 10 MEQ/100 ML INFUS.BAG IVPB SCH (22:50)
[2019-07-19] MEDS: KCL 10 MEQ IVPB 10 MEQ/100 ML INFUS.BAG IVPB SCH ×2 (00:37→03:39)
[2019-07-19 06:09] LABS: HEMOGLOBIN 9.1 GM/dL (11.7-16.9); MEAN CELL VOLUME 79.4 fl (80-96); RBC 3.65 M/mm3 (4.00-5.60); WHITE BLOOD COUNT 5.3 K/mm3 (4.0-10.0)
[2019-07-19 06:10] LABS: BASO % 0.5 % (0-2.0); EOS % 1.9 % (0-4.5); LYMPH % 9.2 % (8-40); MCHC 31.5 g/dl (32.0-35.9); MEAN PLT VOLUME 7.3 fl (7.5-11.1); MONO % 6.7 % (3.8-10.2); NEUT % 81.7 % (42.8-82.8); PLATELET COUNT 171 K/MM3 (134-434)
[2019-07-19 06:45] LABS: BILIRUBIN,TOTAL 0.7 mg/dL (0.2-1); BLOOD UREA NITROGEN 5.1 mg/dL (7-18); CALCIUM 7.8 mg/dL (8.5-10.1); CREATININE 0.6 mg/dL (0.55-1.3); TOT PROT 6.4 g/dl (6.4-8.2)
[2019-07-19 07:08] LABS: POTASSIUM 2.9 mmol/L (3.5-5.1)
--- NOTE | 2019-07-19 09:27 | EKG ---
Test Reason : Blood Pressure : / mmHG Vent. Rate : 102 BPM Atrial Rate : 102 BPM P-R Int : 188 ms QRS Dur : 094 ms QT Int : 370 ms P-R-T Axes : 028 -31 065 degrees QTc Int : 482 ms SINUS TACHYCARDIA LEFT AXIS DEVIATION NONSPECIFIC ST ABNORMALITY ABNORMAL ECG WHEN COMPARED WITH ECG OF 18-JUL-2019 18:05, NO SIGNIFICANT CHANGE WAS FOUND Confirmed by Boyd Calhoun MD ([id number]) on 07/19/2019 9:26:33 AM Referred By: Confirmed By:Boyd Calhoun MD
[2019-07-19] MEDS: PANTOPRAZOLE SODIUM 40 MG VIAL IVPUSH SCH ×2 (10:12→22:49)
[2019-07-19] MEDS: HEPARIN NA (PORCINE) 5,000 UNITS/ML 1ML VIAL SQ SCH ×2 (10:12→22:49)
[2019-07-19] MEDS ORDERED: POTASSIUM CHLORIDE ORAL LIQUID 20 MEQ/15 ML ONE (10:29)
[2019-07-19] MEDS ORDERED: POTASSIUM CHLORIDE ORAL LIQUID 20 MEQ/15 ML PO ONE (10:30)
--- NOTE | 2019-07-19 10:30 | ECHO ---
Name: MANUEL GUERRA Hilario Exam:Adult Echocardiogram Study Date: 07/19/2019 08:47 AM Age: 64 yrs Reason For Study: Chest pain Height: 70 in Weight: 230 lb BSA: 2.2 m2 MMode/2D Measurements & Calculations IVSd: 1.3 cm Ao root diam: 3.8 cm LVIDd: 4.4 cm LA dimension: 3.2 cm LVIDs: 2.9 cm LVPWd: 1.3 cm LVPWs: 1.3 cm EDV(Teich): 85.5 ml ESV(Teich): 31.8 ml LVOT diam: 2.3 cm Doppler Measurements & Calculations MV E max jesus: 60.9 cm/sec Ao V2 max: 167.3 cm/sec MV A max jesus: 104.3 cm/sec Ao max P.2 mmHg MV E/A: 0.58 MV dec time: 0.07 sec PADMINI(V,D): 2.9 cm2 LV V1 max P.6 mmHg PA V2 max: 116.1 cm/sec LV V1 max: 113.5 cm/sec PA max P.4 mmHg Med Peak E' Jesus: 9.3 cm/sec Med E/e': 6.5 Lat Peak E' Jesus: 9.3 cm/sec Lat E/e': 6.5 Left Ventricle The left ventricular size, thickness and function are normal. Ejection Fraction = 60%. E/A reversal c onsistent with but not diagnostic of poor LV compliance. The left ventricular wall motion is normal. Right Ventricle The right ventricle is normal in size and function. Atria Normal left and right atrial size and function. Mitral Valve The mitral valve is normal in structure and function. Tricuspid Valve The tricuspid valve is normal in structure and function. There is trace tricuspid regurgitation. Ther e was insufficient TR detected to calculate RV systolic pressure. Aortic Valve There is trivial aortic valve thickening. Pulmonic Valve The pulmonic valve is not well visualized. Great Vessels Mild aortic root dilatation. Moderately dilated ascending aorta. Pericardium/Pleura There is no pericardial effusion. There is no pleural effusion. Interpretation Summary The left ventricular size, thickness and function are normal Ejection Fraction = 60%. There is trace tricuspid regurgitation. There is trivial aortic valve thickening. Mild aortic root dilatation. Moderately dilated ascending aorta. MD Boyd Calhoun 07/19/2019 10:29 AM
--- NOTE | 2019-07-19 12:50 | CON.CARD ---
Consult Consult Specialty:: Cardiology Referred by:: Dr. Ornelas Reason for Consultation:: Cardiac evaluation - History of Present Illness Chief Complaint: Chest pain History of Present Illness: Patient is a 64 year old male with underlying history of mesothelioma with frequent visits to [facility] ED (multiple times per each month) who presents today with complaints of chest pain in the lower sternal area of the chest. He states that he had passed out in the park and was drinking ETOH. He appears disheveled and states that he has mild shakes. He denies shortness of breath or palpitations. He complains of dizziness at times. He denies headache. He denies nausea, vomiting, diarrhea or abdominal pain. He denies fever or chills. - Past Medical History Cardio/Vascular: Yes: HTN, Hyperlipdemia Pulmonary: Yes: Cancer (Mesothelioma) Psych: Yes: Addictions (EtOH) Musculoskeletal: Yes: Chronic low back pain - Past Surgical History Past Surgical History: Yes: None. 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 denies: Hemoptysis, Orthopnea, PND, SOB Musculoskeletal: reports: Joint Pain. denies: Back Pain Neurological: reports: Dizziness, Syncope. denies: Headache, Seizure Vital Signs: Vital Signs Temperature 100.0 F H 07/19/19 10:07 Pulse Rate 103 H 07/19/19 10:07 Respiratory Rate 20 07/19/19 10:07 Blood Pressure 180/96 H 07/19/19 10:07 O2 Sat by Pulse Oximetry (%) 98 07/19/19 10:07 Constitutional: Yes: Poor Hygeine Neck: Yes: Supple Respiratory: Yes: Diminished Gastrointestinal: Yes: Normal Bowel Sounds, Soft. No: Tenderness Cardiovascular: Yes: Regular Rate and Rhythm JVD: No PMI: Non-Displaced Heart Sounds: Yes: S1, S2. No: Gallop Murmur: Yes: Systolic Murmur Edema: No - Other Data Labs, Other Data: CBC, BMP 07/19/19 05:30 07/19/19 05:30 INR, PTT INR 1.05 (0.83-1.09) 07/18/19 16:34 Troponin, BNP 07/18/19 07/19/19 18:00 01:00 Troponin I 0.06 H 0.03 B-Natriuretic Peptide 268.6 H Laboratory Results - last 24 hr 07/18/19 07/18/19 07/18/19 16:34 18:00 18:00 WBC 5.0 RBC 3.48 L Hgb 8.7 L Hct 27.9 L MCV 80.2 MCH 24.9 L MCHC 31.0 L RDW 23.3 H Plt Count 196 MPV 7.6 Absolute Neuts (auto) 3.4 Neutrophils % 68.2 Lymphocytes % 20.6 Monocytes % 7.9 Eosinophils % 2.3 D Basophils % 1.0 Nucleated RBC % 0 Anisocytosis 2+ PT with INR 12.40 INR 1.05 PTT (Actin FS) 29.8 Sodium 146 H Potassium 2.8 L* Chloride 108 H Carbon Dioxide 29 Anion Gap 9 BUN 6.5 L Creatinine 0.7 Est GFR (CKD-EPI)AfAm 115.59 Est GFR (CKD-EPI)NonAf 99.73 Random Glucose 89 Calcium 8.1 L Magnesium 1.3 L Total Bilirubin 0.3 AST 41 H ALT 25 Alkaline Phosphatase 98 Creatine Kinase 235 Creatine Kinase Index 2.6 CK-MB (CK-2) 6.3 H Troponin I 0.06 H B-Natriuretic Peptide 268.6 H Total Protein 6.0 L Albumin 2.7 L 07/19/19 07/19/19 07/19/19 01:00 05:30 05:30 WBC 5.3 RBC 3.65 L Hgb 9.1 L Hct 29.0 L MCV 79.4 L MCH 25.0 L MCHC 31.5 L RDW 23.0 H Plt Count 171 MPV 7.3 L Absolute Neuts (auto) 4.3 Neutrophils % 81.7 Lymphocytes % 9.2 D Monocytes % 6.7 Eosinophils % 1.9 Basophils % 0.5 Nucleated RBC % 0 Anisocytosis PT with INR INR PTT (Actin FS) Sodium 141 Potassium 2.9 L* Chloride 106 Carbon Dioxide 27 Anion Gap 8 BUN 5.1 L Creatinine 0.6 Est GFR (CKD-EPI)AfAm 123.15 Est GFR (CKD-EPI)NonAf 106.25 Random Glucose 89 Calcium 7.8 L Magnesium Total Bilirubin 0.7 AST 39 H ALT 23 Alkaline Phosphatase 104 Creatine Kinase 177 Creatine Kinase Index 2.0 CK-MB (CK-2) 3.6 Troponin I 0.03 B-Natriuretic Peptide Total Protein 6.4 Albumin 3.0 L Sinus tachycardia with nonspecific ST abnormality Echo: Report Reviewed Imaging - Results Chest X-ray: Report Reviewed (Large heart, widened mediastinum) EKG: Report Reviewed Problem List - Problems (1) Chest pain Code(s): R07.9 - CHEST PAIN, UNSPECIFIED (2) Acute alcohol intoxication Code(s): F10.929 - ALCOHOL USE, UNSPECIFIED WITH INTOXICATION, UNSPECIFIED Qualifiers: Complication of substance-induced condition: uncomplicated Qualified Code(s ): F10.920 - Alcohol use, unspecified with intoxication, uncomplicated (3) Alcohol dependence with intoxication Code(s): F10.229 - ALCOHOL DEPENDENCE WITH INTOXICATION, UNSPECIFIED (4) Alcohol dependence with uncomplicated withdrawal Code(s): F10.230 - ALCOHOL DEPENDENCE WITH WITHDRAWAL, UNCOMPLICATED (5) HTN (hypertension) Code(s): I10 - ESSENTIAL (PRIMARY) HYPERTENSION Qualifiers: Hypertension type: essential hypertension Qualified Code(s): I10 - Essential (primary) hypertension (6) Hypokalemia Code(s): E87.6 - HYPOKALEMIA (7) Mesothelioma (pleural) Code(s): C45.0 - MESOTHELIOMA OF PLEURA Assessment/Plan 1. ETOH intoxication 2. ? Syncope probably above related 3. History of Mesothelioma 4. Hypokalemia 5. Chest pain syndrome 6. Dilated ascending thoracic aorta PLAN: 1. Echocardiography report noted 2. Monitor for ETOH withdrawl and continue detox 3. DVT prophylaxis 4. No specific cardiac management is needed at this time 5. K supplement Further plans are to follow Toni Cardona MD
[2019-07-19] MEDS ORDERED: ACETAMINOPHEN 325 MG TABLET (FP) PO PRN (18:13)
--- NOTE | 2019-07-19 18:16 | PN ---
Progress Note, Physician - Current Medication List Current Medications: Active Medications Acetaminophen (Tylenol -) 650 mg PO Q6H PRN PRN Reason: FEVER Heparin Sodium (Porcine) (Heparin -) 5,000 unit SQ BID [facility] Last Admin: 07/19/19 10:12 Dose: 5,000 unit Magnesium Oxide (Mag-Ox -) 400 mg PO BID [facility] Pantoprazole Sodium (Protonix Iv) 40 mg IVPUSH BID [facility] Last Admin: 07/19/19 10:12 Dose: 40 mg Potassium Chloride (K-Dur -) 40 meq PO BID [facility] - Objective Vital Signs: Vital Signs Temperature 97.0 F L 07/19/19 18:00 Pulse Rate 90 07/19/19 18:00 Respiratory Rate 20 07/19/19 18:00 Blood Pressure 145/99 07/19/19 18:00 O2 Sat by Pulse Oximetry (%) 95 07/19/19 17:02 Constitutional: Yes: Anxious HENT: Yes: Atraumatic Neck: Yes: Supple Cardiovascular: Yes: Regular Rate and Rhythm Respiratory: Yes: CTA Bilaterally Gastrointestinal: Yes: Normal Bowel Sounds Extremities: Yes: WNL Edema: No Neurological: Yes: Alert, Oriented Labs: CBC, BMP 07/19/19 05:30 07/19/19 05:30 INR, PTT INR 1.05 (0.83-1.09) 07/18/19 16:34 Problem List - Problems (1) Chest pain Assessment/Plan: tele monitoring' trop negative cardiology consult Code(s): R07.9 - CHEST PAIN, UNSPECIFIED (2) Alcohol abuse Assessment/Plan: detox consult librium protocol Code(s): F10.10 - ALCOHOL ABUSE, UNCOMPLICATED (3) GERD (gastroesophageal reflux disease) Assessment/Plan: protonix Code(s): K21.9 - GASTRO-ESOPHAGEAL REFLUX DISEASE WITHOUT ESOPHAGITIS Qualifiers: (4) Homelessness Assessment/Plan: social work to see patient Code(s): Z59.0 - HOMELESSNESS (5) Hypokalemia Assessment/Plan: PT REFUSING POTASSIUM Code(s): E87.6 - HYPOKALEMIA
[2019-07-19] MEDS: MAGNESIUM OXIDE 400 MG TABLET (FP) PO SCH (22:49)
[2019-07-19] MEDS: POTASSIUM CHLORIDE TABS 20 MEQ TABLET.ER (FP) PO SCH (22:49)
[2019-07-20] MEDS: HEPARIN NA (PORCINE) 5,000 UNITS/ML 1ML VIAL SQ SCH ×2 (10:24→22:02)
[2019-07-20] MEDS: PANTOPRAZOLE SODIUM 40 MG VIAL IVPUSH SCH (10:24)
[2019-07-20] MEDS: POTASSIUM CHLORIDE TABS 20 MEQ TABLET.ER (FP) PO SCH ×2 (11:27→22:03)
[2019-07-20] MEDS: MAGNESIUM OXIDE 400 MG TABLET (FP) PO SCH ×2 (11:27→22:03)
[2019-07-20] MEDS ORDERED: chlordiazePOXIDE HCL 25 MG CAPSULE PO PRN (12:21)
--- NOTE | 2019-07-20 12:23 | PN ---
Progress Note, Physician - Current Medication List Current Medications: Active Medications Acetaminophen (Tylenol -) 650 mg PO Q6H PRN PRN Reason: FEVER Last Admin: 07/19/19 20:12 Dose: 650 mg Chlordiazepoxide HCl (Librium -) 50 mg PO [id number] [facility] Stop: 07/21/19 10:00 Heparin Sodium (Porcine) (Heparin -) 5,000 unit SQ BID [facility] Last Admin: 07/20/19 10:24 Dose: 5,000 unit Magnesium Oxide (Mag-Ox -) 400 mg PO BID [facility] Last Admin: 07/20/19 11:27 Dose: Not Given Pantoprazole Sodium (Protonix Iv) 40 mg IVPUSH BID [facility] Last Admin: 07/20/19 10:24 Dose: 40 mg Potassium Chloride (K-Dur -) 40 meq PO BID [facility] Last Admin: 07/20/19 11:27 Dose: Not Given - Objective Vital Signs: Vital Signs Temperature 98.8 F 07/20/19 08:49 Pulse Rate 95 H 07/20/19 08:49 Respiratory Rate 18 07/20/19 08:49 Blood Pressure 145/98 07/20/19 08:49 O2 Sat by Pulse Oximetry (%) 95 07/19/19 21:00 Constitutional: Yes: Anxious HENT: Yes: Atraumatic Neck: Yes: Supple Cardiovascular: Yes: Regular Rate and Rhythm Respiratory: Yes: CTA Bilaterally Extremities: Yes: WNL Edema: Yes Edema: LLE: 1+, RLE: 1+ Neurological: Yes: Alert, Oriented Labs: CBC, BMP 07/19/19 05:30 07/19/19 05:30 INR, PTT INR 1.05 (0.83-1.09) 07/18/19 16:34 Problem List - Problems (1) Chest pain Assessment/Plan: tele monitoring' trop negative resolved Code(s): R07.9 - CHEST PAIN, UNSPECIFIED (2) Alcohol abuse Assessment/Plan: detox consult librium protocol Code(s): F10.10 - ALCOHOL ABUSE, UNCOMPLICATED (3) GERD (gastroesophageal reflux disease) Assessment/Plan: protonix Code(s): K21.9 - GASTRO-ESOPHAGEAL REFLUX DISEASE WITHOUT ESOPHAGITIS Qualifiers: (4) Homelessness Code(s): Z59.0 - HOMELESSNESS (5) Hypokalemia Code(s): E87.6 - HYPOKALEMIA
--- NOTE | 2019-07-20 12:34 | CONSULT ---
Consult Detox [facility] Reason for Current Admission/Consult: for alcohol detox Referred by:: marysol wick - History History of Present Illness: for alcohol detox - History Source History Provided By: Patient Limitations to Obtaining History: No Limitations - Alcohol/Substance Use Hx Alcohol Use: Yes Hx Substance Use: No Hx Substance Use Treatment: Yes - Past Medical History Cardio/Vascular: Yes: HTN, Hyperlipdemia Pulmonary: Yes: Cancer (Mesothelioma) Gastrointestinal: Yes: GERD Psych: Yes: Addictions (EtOH) Musculoskeletal: Yes: Chronic low back pain - Past Surgical History Past Surgical History: Yes: None, Colonoscopy (pt may have had - not sure). No : Upper Endoscopy (pt denies having had in past) - Significant Medical Findings: this 64 years old male with alcohol dependence,hypertension,gerd,chronic low back pain, non compliance with treatment ,homeless,denied seizure but had syncope alcohol related,history of hypokalemia,multiple admissions for inpatient detox and multiple visits to er, admitted at [facility] with chest pain,alcohol intoxication,history of non compliance stated has been drinking daily,3 pints of vodka,started at age of 16,last drink on 07/18/2019 patient needed inpatient detox,medically managed with librium regimen, correction of hypokalemia,patient will benefit for further level of care inpatient rehab,at this present time patient refused , CIWA Score - CIWA Score Nausea/Vomitin-Mild Nausea/No Vomiting Muscle Tremors: 3 Anxiety: 3 Agitation: 3 Paroxysmal Sweats: No Perspiration Orientation: 0-Oriented Tacttile Disturbances: 1-Very Mild Itch/Numbness Auditory Disturbances: 0-None Visual Disturbances: 0-None Headache: 2-Mild CIWA-Ar Total Score: 13 Assessment Plan - Diagnosis (1) Alcohol dependence with uncomplicated withdrawal Status: Acute (2) Back pain Status: Chronic Qualifiers: Back pain location: low back pain Chronicity: unspecified Back pain laterality: unspecified Sciatica presence: unspecified whether sciatica present Qualified Code(s): M54.5 - Low back pain (3) Hypokalemia Status: Chronic - Medication Detox Regimen/Protocol: Librium
--- NOTE | 2019-07-20 12:55 | PN ---
Progress Note, Physician History of Present Illness: Less tremulousness on Librium taper, no events on telemetry. - Current Medication List Current Medications: Active Medications Acetaminophen (Tylenol -) 650 mg PO Q6H PRN PRN Reason: FEVER Last Admin: 07/19/19 20:12 Dose: 650 mg Chlordiazepoxide HCl (Librium -) 50 mg PO [id number] [facility] Stop: 07/21/19 10:00 Chlordiazepoxide HCl (Librium -) 10 mg PO [id number] [facility] Stop: 07/23/19 23:01 Chlordiazepoxide HCl (Librium -) 10 mg PO Q12H [facility] Stop: 07/24/19 17:01 Chlordiazepoxide HCl (Librium -) 10 mg PO Q4H PRN PRN Reason: WITHDRAWAL(CONT SUBST) Stop: 07/24/19 00:00 Chlordiazepoxide HCl (Librium -) 10 mg PO ONCE@0500 ONE Stop: 07/25/19 05:01 Chlordiazepoxide HCl (Librium -) 50 mg PO [id number] [facility] Stop: 07/21/19 23:01 Chlordiazepoxide HCl (Librium -) 25 mg PO [id number] [facility] Stop: 07/22/19 23:01 Chlordiazepoxide HCl (Librium -) 25 mg PO Q4H PRN PRN Reason: WITHDRAWAL(CONT SUBST) Stop: 07/21/19 12:20 Heparin Sodium (Porcine) (Heparin -) 5,000 unit SQ BID [facility] Last Admin: 07/20/19 10:24 Dose: 5,000 unit Magnesium Oxide (Mag-Ox -) 400 mg PO BID [facility] Last Admin: 07/20/19 11:27 Dose: Not Given Pantoprazole Sodium (Protonix Iv) 40 mg IVPUSH BID [facility] Last Admin: 07/20/19 10:24 Dose: 40 mg Potassium Chloride (K-Dur -) 40 meq PO BID [facility] Last Admin: 07/20/19 11:27 Dose: Not Given - Objective Vital Signs: Vital Signs Temperature 98.8 F 07/20/19 08:49 Pulse Rate 95 H 07/20/19 08:49 Respiratory Rate 18 07/20/19 08:49 Blood Pressure 145/98 07/20/19 08:49 O2 Sat by Pulse Oximetry (%) 95 07/19/19 21:00 Constitutional: Yes: No Distress, Calm Neck: Yes: Supple Cardiovascular: Yes: Regular Rate and Rhythm Respiratory: Yes: Regular, CTA Bilaterally Gastrointestinal: Yes: Normal Bowel Sounds, Soft, Abdomen, Obese Edema: No Labs: CBC, BMP 07/19/19 05:30 07/19/19 05:30 INR, PTT INR 1.05 (0.83-1.09) 07/18/19 16:34 - ....Imaging EKG: Report Reviewed (Tele: NSR) Problem List - Problems (1) Alcohol dependence with uncomplicated withdrawal Code(s): F10.230 - ALCOHOL DEPENDENCE WITH WITHDRAWAL, UNCOMPLICATED (2) Sacral back pain Code(s): M53.3 - SACROCOCCYGEAL DISORDERS, NOT ELSEWHERE CLASSIFIED (3) Homelessness Code(s): Z59.0 - HOMELESSNESS (4) Hypokalemia Code(s): E87.6 - HYPOKALEMIA Assessment/Plan 07/19/2019 Echo: Normal LV size and fxn LVEF 65% tr TR, mild ao dilatation 3.8 cm 1. ETOH intoxication 2. Possible Syncope probably above related 3. History of Mesothelioma 4. Hypokalemia 5. Chest pain syndrome 6. Dilated ascending thoracic aorta 7. Chronic lower back pain PLAN: 1. Echocardiography report noted 2. Monitor for ETOH withdrawal and continue librium detox 3. DVT and GI prophylaxis 4. No specific cardiac management is needed at this time 5. K supplement 6. Declined inpatient rehab
[2019-07-20 14:15] LABS: BASO % 0.6 % (0-2.0); EOS % 2.7 % (0-4.5); HEMOGLOBIN 9.9 GM/dL (11.7-16.9); LYMPH % 13.1 % (8-40); MCHC 31.9 g/dl (32.0-35.9); MEAN CELL VOLUME 78.5 fl (80-96); MEAN PLT VOLUME 7.6 fl (7.5-11.1); MONO % 9.3 % (3.8-10.2); NEUT % 74.3 % (42.8-82.8); PLATELET COUNT 209 K/MM3 (134-434); RBC 3.95 M/mm3 (4.00-5.60); RDW 22.8 % (11.9-15.9); WHITE BLOOD COUNT 6.3 K/mm3 (4.0-10.0)
[2019-07-20 14:54] LABS: ALBUMIN 3.1 g/dl (3.4-5.0); BILIRUBIN,TOTAL 0.7 mg/dL (0.2-1); BLOOD UREA NITROGEN 6.9 mg/dL (7-18); CALCIUM 7.9 mg/dL (8.5-10.1); CREATININE 0.7 mg/dL (0.55-1.3); TOT PROT 6.7 g/dl (6.4-8.2)
[2019-07-20 15:10] LABS: POTASSIUM 2.8 mmol/L (3.5-5.1)
[2019-07-20] MEDS ORDERED: chlordiazePOXIDE HCL 25 MG CAPSULE PO SCH (17:00)
[2019-07-20] MEDS: chlordiazePOXIDE HCL 25 MG CAPSULE PO SCH ×2 (17:24→22:04)
[2019-07-20] MEDS: KCL 10 MEQ IVPB 10 MEQ/100 ML INFUS.BAG IVPB SCH ×2 (20:14→23:39)
[2019-07-21] MEDS: chlordiazePOXIDE HCL 25 MG CAPSULE PO SCH (06:01)
[2019-07-21 06:14] VITALS: BP 144/83; PULSE 88; TEMP 97.8
--- NOTE | 2019-07-21 07:07 | HOSP ---
Subjective - Review of Symptoms Events since last encounter: Hospitalist Encounter Notified by the RN, that the patient wants to sign out AMA and left. Arrived to [facility] per the RN the patient left the floor. Physical Examination Vital Signs: Vital Signs Temperature 97.8 F 07/21/19 06:00 Pulse Rate 88 07/21/19 06:00 Respiratory Rate 18 07/21/19 06:00 Blood Pressure 144/83 07/21/19 06:00 O2 Sat by Pulse Oximetry (%) 94 L 07/20/19 21:00 Labs: CBC, BMP 07/20/19 14:05
[2019-07-21 08:17] LABS: ALBUMIN 2.9 g/dl (3.4-5.0); BILIRUBIN,TOTAL 0.8 mg/dL (0.2-1); BLOOD UREA NITROGEN 6.5 mg/dL (7-18); CREATININE 0.6 mg/dL (0.55-1.3); TOT PROT 6.1 g/dl (6.4-8.2)
[2019-07-21 08:23] LABS: POTASSIUM 2.6 mmol/L (3.5-5.1)
[2019-07-21] MEDS ORDERED: PANTOPRAZOLE 40 MG TABLET PO SCH (10:00)
--- NOTE | 2019-07-21 12:03 | DS ---
Physical Examination Vital Signs: Vital Signs Temperature 97.8 F 07/21/19 06:00 Pulse Rate 88 07/21/19 06:00 Respiratory Rate 18 07/21/19 06:00 Blood Pressure 144/83 07/21/19 06:00 O2 Sat by Pulse Oximetry (%) 94 L 07/20/19 21:00 Labs: CBC, BMP 07/20/19 14:05 07/21/19 05:35 Discharge Summary Problems reviewed: Yes Reason For Visit: CHEST PAIN Condition: Guarded - Instructions Disposition: ELOPED - Home Medications Comprehensive Discharge Medication List: Ambulatory Orders Potassium Chloride [K-Dur -] 40 meq PO BID #60 tablet.er 07/20/19
[2019-07-22] MEDS ORDERED: chlordiazePOXIDE HCL 25 MG CAPSULE PO SCH (05:00)
[2019-07-23] MEDS ORDERED: chlordiazePOXIDE HCL 10 MG CAPSULE PO PRN
[2019-07-23] MEDS ORDERED: chlordiazePOXIDE HCL 10 MG CAPSULE PO SCH (05:00)
[2019-07-24] MEDS ORDERED: chlordiazePOXIDE HCL 10 MG CAPSULE PO SCH (05:00)
[2019-07-25] MEDS ORDERED: chlordiazePOXIDE HCL 10 MG CAPSULE PO ONE (05:00)
== END 2019-07-21 08:31 | disposition left against medical advice (07) | DRG 203 ==
LOC: JER 15:11 → JERBED 19:01 → OBSVTOIN 21:18 → J4S 07-19 14:47
PROVIDERS: ADMIT Internal Medicine; ATTEND Internal Medicine
DX: R07.89 Other chest pain (principal); M53.3 Sacrococcygeal disorders, not elsewhere classified; Z59.0 Homelessness; E87.6 Hypokalemia; K21.9 Gastro-esophageal reflux disease without esophagitis; R55 Syncope and collapse; F10.230 Alcohol dependence with withdrawal, uncomplicated; E66.9 Obesity, unspecified; Z68.33 Body mass index [BMI] 33.0-33.9, adult
CPT/HCPCS: 36415; 71046-TC-FY; 80053; 82550; 82553; 83735; 83880; 84484; 85025; 85610; 85730; 93005; 93010; 93306-TC; 99285-25; G0378; J1644

== ENCOUNTER 2019-07-22 20:38 | Observation (INO) | payer OTHER ==
--- NOTE | 2019-07-22 20:48 | PDOC ---
Rapid Medical Evaluation Chief Complaint: Alcohol intoxication Time Seen by Provider: 07/22/19 20:48 Medical Evaluation: Allergies Allergy/AdvReac Type Severity Reaction Status Date / Time Fish Containing Products Allergy Mild Swelling Verified 07/22/19 20:47 No Known Drug Allergies Allergy Verified 07/22/19 20:47 Vital Signs Temp Pulse Resp BP Pulse Ox 98.4 F 96 H 18 116/69 99 07/22/19 20:41 07/22/19 20:41 07/22/19 20:41 07/22/19 20:41 07/22/19 20:41 07/22/19 20:50 64 year old male BIBA s/p fall. as per ems patient found on the floor reports that he fell. patient with frequent visits to the ED A: alcohol abuse; fall P: ct head Discharge Disposition - Diagnosis Alcohol abuse Fall Qualifiers: Encounter type: initial encounter Qualified Code(s): W19.XXXA - Unspecified fall, initial encounter - Referrals - Patient Instructions - Post Discharge Activity
--- NOTE | 2019-07-22 21:45 | PDOC ---
History of Present Illness - General Chief Complaint: Alcohol intoxication Stated Complaint: INTOXIC Time Seen by Provider: 07/22/19 20:48 History Source: Patient Exam Limitations: No Limitations - History of Present Illness Initial Comments: 07/22/19 21:44 64M well known to the ED 2/2 multiple visits, mesothelioma, undomiciled [place]IBEMS [place] Pt denies falling, LOC, hitting head, chest pain, SOB. Eloped from hospital yesterday after being admitted on 07/18 for chest pain and alcohol intoxication. Drank an undetermined amount of alcohol before coming here. Past History - Past Medical History Allergies/Adverse Reactions: Allergies Allergy/AdvReac Type Severity Reaction Status Date / Time Fish Containing Products Allergy Mild Swelling Verified 07/22/19 20:47 No Known Drug Allergies Allergy Verified 07/22/19 20:47 Home Medications: Ambulatory Orders Potassium Chloride [K-Dur -] 40 meq PO BID #60 tablet.er 07/20/19 Anemia: No Asthma: No Cancer: Yes (mesothelioma lung cancer) Cardiac Disorders: No CVA: No COPD: No CHF: No DVT: No Dementia: No Diabetes: No Dialysis: No GI Disorders: No Disorders: No HTN: Yes (non compliance) Hypercholesterolemia: Yes Kidney Stones: No Liver Disease: Yes (ETOH abuse) Psychiatric Problems: Yes (ETOH abuse) Seizures: No Thyroid Disease: No Lung CA: Yes (Mesothelioma) - Surgical History Abdominal Surgery: No Appendectomy: No Cardiac Surgery: No Cholecystectomy: No Lung Surgery: No Neurologic Surgery: No Orthopedic Surgery: No - Reproductive History Testicular Surgery: No - Immunization History Td Vaccination: Yes TDAP Vaccination: Yes Immunization Up to Date: Yes - Psycho Social/Smoking Cessation Hx Smoking Status: No Smoking History: Never smoked Have you smoked in the past 12 months: No Number of Cigarettes Smoked Daily: 0 If you are a former smoker, when did you quit?: 0 Cigars Per Day: 0 'Breaking Loose' booklet given: 09/22/17 Hx Alcohol Use: No Drug/Substance Use Hx: No Substance Use Type: Alcohol Hx Substance Use Treatment: Yes Review of Systems - Review of Systems Constitutional: No: Chills, Fever HEENTM: No: Nose Pain, Throat Pain Respiratory: No: Cough, Shortness of Breath Cardiac (ROS): No: Chest Pain, Palpitations ABD/GI: No: Nausea, Vomiting : No: Burning, Dysuria Musculoskeletal: No: Back Pain, Joint Pain Integumentary: No: Bruising, Flushing Neurological: No: Headache, Seizure Psychiatric: No: Anxiety, Depression Endocrine: No: Intolerance to Cold, Intolerance to Heat Hematologic/Lymphatic: No: Anemia, Blood Clots *Physical Exam - Vital Signs Last Vital Signs Temp Pulse Resp BP Pulse Ox 98.4 F 96 H 18 116/69 99 07/22/19 20:41 07/22/19 20:41 07/22/19 20:41 07/22/19 20:41 07/22/19 20:41 - Physical Exam General Appearance: Yes: Nourished, Appropriately Dressed. No: Apparent Distress HEENT: positive: EOMI, DOUGLAS, Normal Voice, Hearing Grossly Normal, Other (no head lacerations/abrasions) Respiratory/Chest: positive: Lungs Clear, Normal Breath Sounds. negative: Chest Tender, Respiratory Distress Cardiovascular: positive: Regular Rhythm, Regular Rate, S1, S2. negative: Murmur Extremity: positive: Delayed Capillary Refill Integumentary: positive: Normal Color, Dry Neurologic: positive: civil preparedness training officer II-XII NML intact, Fully Oriented, Alert, Normal Response, Responsive. negative: Confused, Disoriented ED Treatment Course - LABORATORY CBC & Chemistry Diagram: 07/23/19 00:05 07/23/19 00:05 Medical Decision Making - Medical Decision Making 07/22/19 21:[address] - no acute bleed/infarct EKG - sinus rhythm w PAC, HR 94, QTc 467, no ST changes --- 64M well known to the ED 2/2 multiple visits, mesothelioma, undomiciled BIBEMS [place]. Neuro intact. No acute head bleed/infarct on CT. Has hypokalemia 2.9. No signs of alcohol withdrawal Given 1L banana bag, [address] Randall for syncope and hypokalemia 2.9 Discharge - Discharge Information Problems reviewed: Yes Clinical Impression/Diagnosis: Alcohol abuse, Hypokalemia Fall Qualifiers: Encounter type: initial encounter Qualified Code(s): W19.XXXA - Unspecified fall, initial encounter Condition: Stable - Follow up/Referral - Patient Discharge Instructions - Post Discharge Activity
[2019-07-23 00:21] LABS: HEMATOCRIT 29.5 % (35.4-49); HEMOGLOBIN 9.3 GM/dL (11.7-16.9); MCH 25.1 pg (25.7-33.7); MEAN CELL VOLUME 79.4 fl (80-96); RBC 3.71 M/mm3 (4.00-5.60); WHITE BLOOD COUNT 8.2 K/mm3 (4.0-10.0)
[2019-07-23 00:22] LABS: BASO % 0.7 % (0-2.0); EOS % 2.4 % (0-4.5); LYMPH % 20.9 % (8-40); MCHC 31.6 g/dl (32.0-35.9); MEAN PLT VOLUME 7.9 fl (7.5-11.1); MONO % 12.2 % (3.8-10.2); NEUT % 63.8 % (42.8-82.8); PLATELET COUNT 284 K/MM3 (134-434); RDW 22.6 % (11.9-15.9)
[2019-07-23] MEDS ORDERED: FOLIC ACID INJECTION - 1 MG, THIAMINE HCL 100 MG, MULTIVIT INJECTION ADULT 10 ML in SOD... IVPB ONE (00:23)
[2019-07-23 00:54] LABS: ALBUMIN 3.2 g/dl (3.4-5.0); BILIRUBIN,TOTAL 0.4 mg/dL (0.2-1); BLOOD UREA NITROGEN 20.2 mg/dL (7-18); CALCIUM 8.1 mg/dL (8.5-10.1); TOT PROT 6.9 g/dl (6.4-8.2)
[2019-07-23 00:55] LABS: POTASSIUM 2.9 mmol/L (3.5-5.1)
[2019-07-23 02:09] LABS: ANISOCYTOSIS 3+
[2019-07-23] MEDS: KCL 10 MEQ IVPB 10 MEQ/100 ML INFUS.BAG IVPB SCH ×3 (02:39→04:47)
[2019-07-23] MEDS ORDERED: SODIUM CHLORIDE 1,000 ML IV SCH (03:00)
--- NOTE | 2019-07-23 03:02 | PDOC ---
Attending Attestation - Resident Resident Name: PeterBob - ED Attending Attestation I have performed the following: I have examined & evaluated the patient, The case was reviewed & discussed with the resident, I agree w/resident's findings & plan - HPI HPI: 07/24/19 21:42 64M well known to the ED 2/2 multiple visits, mesothelioma, undomiciled BIBEMS [place] Pt denies falling, LOC, hitting head, chest pain, SOB. Eloped from hospital yesterday after being admitted on 07/18 for chest pain and alcohol intoxication. Drank an undetermined amount of alcohol before coming here. - Physicial Exam PE: 07/24/19 21:42 Agree with resident exam - Medical Decision Making 07/24/19 21:43 Pt had labs sent, as he appears worse than usual Pt has low K+ as usual. He will be repleted and admitted for syncope and electrolyte abnormality
--- NOTE | 2019-07-23 04:17 | HP ---
CHIEF COMPLAINT: alcohol intoxication PCP: HISTORY OF PRESENT ILLNESS: 64 y/o M well known to the ED w/ pmh of EtOH abuse with multiple ED visits for intoxication, COPD, mesothelioma, chronic back pain presented s/p alcohol intoxication. Pt was found by EMS [place] He was immediately rushed to the hospital. As per pt, he did not hit his head or LOC, however he is intoxicated and thus a poor historian. In the ED, pt remains intoxicated and was given IVF and banana bag. Denies f/c/n/v/d/sob,cp, loc,head trauma. ER course was notable for: (1) EKG Sinus rhythm w/ PACs (2) Head CT neg, ethmoid mucus sinus (3) Recent Travel: unable to obtain PAST MEDICAL HISTORY: EtOH abuse with multiple ED visits for intoxication, COPD, mesothelioma, chronic back pain PAST SURGICAL HISTORY: unable to obtain Social History: Smoking:unable to obtain Alcohol: excess alcohol intake Drugs: unable to obtain Allergies Fish Containing Products Allergy (Mild, Verified 07/22/19 20:47) Swelling No Known Drug Allergies Allergy (Verified 07/22/19 20:47) HOME MEDICATIONS: Home Medications Medication Instructions Recorded Potassium Chloride [K-Dur -] 40 meq PO BID #60 tablet.er 07/20/19 REVIEW OF SYSTEMS unable to obtain- reassess after sober PHYSICAL EXAMINATION Vital Signs - 24 hr 07/22/19 20:41 Temperature 98.4 F Pulse Rate 96 H Respiratory 18 Rate Blood Pressure 116/69 O2 Sat by Pulse 99 Oximetry (%) GENERAL: intoxicated, AOx2 HEAD: Normal with no signs of trauma. EYES: Pupils equal, round and reactive to light, extraocular movements intact, sclera anicteric, conjunctiva clear. No lid lag. EARS, NOSE, THROAT: Moist mucous membranes. LUNGS: Breath sounds equal, clear to auscultation bilaterally. No wheezes, and no crackles. No accessory muscle use. HEART: Regular rate and rhythm, normal S1 and S2 without murmur, rub or gallop. ABDOMEN: Soft, nontender, not distended, normoactive bowel sounds, no guarding, no rebound, no masses. UPPER EXTREMITIES: 2+ pulses, warm, No clubbing. No peripheral edema. LOWER EXTREMITIES: 2+ pulses, warm, No peripheral edema. NEUROLOGICAL: Cranial nerves II-XII intact. Normal speech. Normal gait. SKIN: Warm, dry, normal turgor, no rashes or lesions noted, normal capillary refill. Laboratory Results - last 24 hr 07/23/19 07/23/19 00:05 00:05 WBC 8.2 RBC 3.71 L Hgb 9.3 L Hct 29.5 L MCV 79.4 L MCH 25.1 L MCHC 31.6 L RDW 22.6 H Plt Count 284 D MPV 7.9 Absolute Neuts (auto) 5.2 Neutrophils % 63.8 Lymphocytes % 20.9 D Monocytes % 12.2 H Eosinophils % 2.4 Basophils % 0.7 Nucleated RBC % 0 Hypochromia 2+ Anisocytosis 3+ Microcytosis 1+ Sodium 139 Potassium 2.9 L* Chloride 101 Carbon Dioxide 26 Anion Gap 12 BUN 20.2 H Creatinine 1.0 Est GFR (CKD-EPI)AfAm 91.78 Est GFR (CKD-EPI)NonAf 79.19 Random Glucose 89 Calcium 8.1 L Total Bilirubin 0.4 AST 96 H ALT 38 Alkaline Phosphatase 95 Total Protein 6.9 Albumin 3.2 L ASSESSMENT/PLAN: 64 y/o M well known to the ED w/ pmh of EtOH abuse with multiple ED visits for intoxication, COPD, mesothelioma, chronic back pain presented s/p alcohol intoxication admitted for hypokalemia 2/2 alcohol intoxication #Hypokalemia likely 2/2 to excess alcohol intake CBC, CMP, Mag, Phos trops K-dur 40mg daily thiamine folic acid IVF #Elevated transaminases f/u labs monitor DVTppx Heparin TID FEN monitor lytes IVF fluids Regular diet Dispo: monitor overnight, f/u laps and potassium Visit type - Emergency Visit Emergency Visit: Yes ED Registration Date: 07/22/19 Care time: The patient presented to the Emergency Department on the above date and was hospitalized for further evaluation of their emergent condition. - New Patient This patient is new to me today: Yes Date on this admission: 07/24/19 - Critical Care Critical Care patient: No ATTENDING PHYSICIAN STATEMENT I saw and evaluated the patient. I reviewed the resident's note and discussed the case with the resident. I agree with the resident's findings and plan as documented. SUBJECTIVE: OBJECTIVE: ASSESSMENT AND PLAN:
[2019-07-23] MEDS ORDERED: POTASSIUM CHLORIDE TABS 20 MEQ TABLET.ER (FP) PO ONE ×2 (04:22→04:41)
--- NOTE | 2019-07-23 04:42 | PN ---
Teaching Attending Note Name of Resident: Alexandr Casanova ATTENDING PHYSICIAN STATEMENT I saw and evaluated the patient. I reviewed the resident's note and discussed the case with the resident. I agree with the resident's findings and plan as documented. SUBJECTIVE: 64-year-old male with multiple ER visits, chronic alcoholic, history of mesothelioma, undomiciled brought in by ambulance after he was [place] intoxicated. Patient denies falling, LOC, hitting of head. History was obtained mainly from ER documentation as patient was not very compliant with interview. OBJECTIVE: Last Vital Signs Temp Pulse Resp BP Pulse Ox 98.4 F 96 H 18 116/69 99 07/22/19 20:41 07/22/19 20:41 07/22/19 20:41 07/22/19 20:41 07/22/19 20:41 GENERAL: Obese, nontoxic,Disheveled, malodorous HEENT: Normocephalic, atraumatic. PERRLA, EOMI. No conjunctival pallor. Sclera are non- icteric. Moist mucous membranes. Oropharynx is clear. NECK: Supple. Full ROM. No JVD. Carotid pulses 2+ and symmetric, without bruits. No thyromegaly. No lymphadenopathy. CARDIOVASCULAR: Regular rate and rhythm. No murmurs, rubs, or gallops. Distal pulses are 2+ and symmetric. PULMONARY: No evidence of respiratory distress. Lungs clear to auscultation bilaterally. No wheezing, rales or rhonchi. ABDOMINAL: Obese, Soft. Non-tender. Non-distended. No rebound or guarding. No organomegaly. Normoactive bowel sounds. MUSCULOSKELETAL Normal range of motion at all joints. No bony deformities or tenderness. No CVA tenderness. EXTREMITIES: No cyanosis. No clubbing. No edema. No calf tenderness. SKIN: Warm and dry. Normal capillary refill. No rashes. No jaundice. NEUROLOGICAL: Moves all extremities, no focal neurological deficits appreciated, alert and oriented PSYCHIATRIC: None cooperative with exam Abnormal Lab Results 07/23/19 07/23/19 00:05 00:05 RBC 3.71 L Hgb 9.3 L Hct 29.5 L MCV 79.4 L MCH 25.1 L MCHC 31.6 L RDW 22.6 H Monocytes % 12.2 H Potassium 2.9 L* BUN 20.2 H Calcium 8.1 L AST 96 H Albumin 3.2 L Imaging studies reviewed EKG reviewednormal sinus rhythm Head CT reviewedno CT evidence of acute intracranial pathology ASSESSMENT AND PLAN: 64-year-old male chronic alcoholic brought in for alcohol intoxication found to have profound hypokalemia with known notable EKG changes. Questionable syncope. Telemetry observation Supplement potassium Send EtOH level Urine toxicology screen Check magnesium Banana bag fluid hydration Fall precautions and bedrest #Chronic normocytic anemialikely secondary to EtOH abuse #Hypoalbuminemia DVT prophylaxis with heparin subcutaneously
[2019-07-23] MEDS ORDERED: LORazepam 2 MG/ML SDV VIAL IVPUSH ONE (06:30)
[2019-07-23] MEDS ORDERED: LORazepam 2 MG/ML SDV VIAL ONE (06:41)
[2019-07-23] MEDS ORDERED: POTASSIUM CHLORIDE TABS 20 MEQ TABLET.ER (FP) PO SCH (10:00)
[2019-07-23] MEDS ORDERED: FOLIC ACID 5 MG/1 ML IVPB ONE ×2 (10:00→10:16)
[2019-07-23] MEDS ORDERED: THIAMINE HCL 200 MG/2 ML VIAL IVPB SCH (10:00)
[2019-07-23] MEDS ORDERED: THIAMINE HCL 200 MG/2 ML VIAL ONE (10:56)
[2019-07-23] MEDS ORDERED: ACETAMINOPHEN 325 MG TABLET (FP) PO PRN (10:57)
[2019-07-23] MEDS: HEPARIN NA (PORCINE) 5,000 UNITS/ML 1ML VIAL SQ SCH ×2 (11:08→21:28)
[2019-07-23 12:53] VITALS: BMI 33.0
[2019-07-23] MEDS ORDERED: methylPREDNISolone NA SUCC 125 MG/2 ML VIAL IVPUSH ONE (18:37)
--- NOTE | 2019-07-23 18:38 | PN ---
Physical Exam: SUBJECTIVE: Patient seen and examined. He has no complaints. OBJECTIVE: Vital Signs Period Temp Pulse Resp BP Sys/Jang Pulse Ox Last 24 Hr 97.9 F-98.4 F 75-96 17-20 110-138/60-74 96-99 GENERAL: The patient is awake, alert, and fully oriented, in no acute distress. LUNGS: Breath sounds equal, diffuse wheezes, no crackles, no accessory muscle use. HEART: Regular rate and rhythm, S1, S2 without murmur, rub or gallop. ABDOMEN: Obese, soft, nontender, nondistended, normoactive bowel sounds, no guarding, no rebound, no hepatosplenomegaly, no masses. EXTREMITIES: 2+ pulses, warm, well-perfused, no edema. Laboratory Results - last 24 hr 07/23/19 07/23/19 07/23/19 00:05 00:05 03:55 WBC 8.2 RBC 3.71 L Hgb 9.3 L Hct 29.5 L MCV 79.4 L MCH 25.1 L MCHC 31.6 L RDW 22.6 H Plt Count 284 D MPV 7.9 Absolute Neuts (auto) 5.2 Neutrophils % 63.8 Lymphocytes % 20.9 D Monocytes % 12.2 H Eosinophils % 2.4 Basophils % 0.7 Nucleated RBC % 0 Hypochromia 2+ Anisocytosis 3+ Microcytosis 1+ Sodium 139 Potassium 2.9 L* Chloride 101 Carbon Dioxide 26 Anion Gap 12 BUN 20.2 H Creatinine 1.0 Est GFR (CKD-EPI)AfAm 91.78 Est GFR (CKD-EPI)NonAf 79.19 Random Glucose 89 Calcium 8.1 L Total Bilirubin 0.4 AST 96 H ALT 38 Alkaline Phosphatase 95 Troponin I < 0.02 Total Protein 6.9 Albumin 3.2 L Alcohol, Quantitative 07/23/19 08:22 WBC RBC Hgb Hct MCV MCH MCHC RDW Plt Count MPV Absolute Neuts (auto) Neutrophils % Lymphocytes % Monocytes % Eosinophils % Basophils % Nucleated RBC % Hypochromia Anisocytosis Microcytosis Sodium Potassium Chloride Carbon Dioxide Anion Gap BUN Creatinine Est GFR (CKD-EPI)AfAm Est GFR (CKD-EPI)NonAf Random Glucose Calcium Total Bilirubin AST ALT Alkaline Phosphatase Troponin I Total Protein Albumin Alcohol, Quantitative < 3 Active Medications Generic Name Dose Route Start Last Admin Trade Name Freq PRN Reason Stop Dose Admin Acetaminophen 650 mg 07/23/19 10:57 Tylenol - PO Q4H PRN PAIN Heparin Sodium (Porcine) 5,000 unit 07/23/19 10:00 07/23/19 11:08 Heparin - SQ 5,000 unit BID CAREY Administration Sodium Chloride 1,000 mls @ 75 mls/hr 07/23/19 03:00 07/23/19 03:46 Normal Saline - IV 75 mls/hr ASDIR CAREY Administration Potassium Chloride 40 meq 07/23/19 10:00 07/23/19 11:07 K-Dur - PO Not Given DAILY CAREY Thiamine HCl 200 mg 07/23/19 10:00 07/23/19 11:08 Vitamin B1 Injection - IVPB 200 mg DAILY CAREY Administration ASSESSMENT/PLAN: This is a 64 year old man with a history of HTN, alcohol abuse, COPD, mesothelioma, chronic back pain who presented to the ED [place] 1. Alcohol intoxication - Resolved - Start Librium detox 2. Continuous alcohol dependence - Thiamine, folic acid, multivitamin 3. Hypokalemia - Refusing IV and PO potassium - Add KCl to IV fluid 4. COPD - SoluMedrol x1, DuoNeb 5. Anemia - Chronic, likely secondary to alcohol and poor nutrition - Hgb stable 6. HTN - On no medication 7. Obesity with BMI 33.0 8. History of mesothelioma Visit type - Emergency Visit Emergency Visit: Yes ED Registration Date: 07/22/19 Care time: The patient presented to the Emergency Department on the above date and was hospitalized for further evaluation of their emergent condition. - New Patient This patient is new to me today: Yes Date on this admission: 07/23/19 - Critical Care Critical Care patient: No - Discharge Referral Referred to [facility] Med P.C.: No
[2019-07-23] MEDS ORDERED: SODIUM CHLORIDE 0.9%/KCL 20 MEQ/1,000 ML INFUS.BAG IV SCH (18:45)
[2019-07-23] MEDS: ALBUTEROL SO4 2.5/IPRATROPIUM 0.5 INH SOL 3 ML VIAL.NEB. NEB SCH (20:40)
[2019-07-24 06:36] LABS: BASO % 0.2 % (0-2.0); HEMATOCRIT 28.6 % (35.4-49); LYMPH % 10.7 % (8-40); MCHC 31.4 g/dl (32.0-35.9); MEAN CELL VOLUME 79.5 fl (80-96); MEAN PLT VOLUME 8.2 fl (7.5-11.1); MONO % 1.7 % (3.8-10.2); NEUT % 87.4 % (42.8-82.8); PLATELET COUNT 254 K/MM3 (134-434); RBC 3.59 M/mm3 (4.00-5.60); RDW 22.5 % (11.9-15.9); WHITE BLOOD COUNT 3.8 K/mm3 (4.0-10.0)
[2019-07-24 06:38] LABS: ALBUMIN 2.6 g/dl (3.4-5.0); BILIRUBIN,TOTAL 0.5 mg/dL (0.2-1); BLOOD UREA NITROGEN 9.6 mg/dL (7-18); CALCIUM 8.3 mg/dL (8.5-10.1); CREATININE 0.6 mg/dL (0.55-1.3); MAGNESIUM 1.4 mg/dL (1.8-2.4); PHOSPHOROUS 2.6 mg/dL (2.5-4.9); POTASSIUM 3.3 mmol/L (3.5-5.1); TOT PROT 6.1 g/dl (6.4-8.2)
[2019-07-24 07:08] LABS: INR 1.04 (0.83-1.09); PROTHROMBIN TIME (PATIENT) 12.3 SEC (9.7-13.0)
[2019-07-24] MEDS: ALBUTEROL SO4 2.5/IPRATROPIUM 0.5 INH SOL 3 ML VIAL.NEB. NEB SCH ×2 (08:29→11:41)
[2019-07-24 09:13] VITALS: TEMP 98
[2019-07-24] MEDS: HEPARIN NA (PORCINE) 5,000 UNITS/ML 1ML VIAL SQ SCH (09:26)
[2019-07-24] MEDS ORDERED: MULTIVITAMINS THER W-MINERALS COMBO TABLET (FP) PO SCH (10:00)
[2019-07-24] MEDS ORDERED: THIAMINE HCL 100 MG TABLET (FP) PO SCH (10:00)
[2019-07-24] MEDS ORDERED: FOLIC ACID 1 MG TABLET (FP) PO SCH (10:00)
--- NOTE | 2019-07-24 10:26 | CONSULT ---
Consult - text type - Consultation Consultation Note: Podiatry Consultation: 64 year old male presented to hospital for admission for ETOH intoxication. Per nursing staff, patient has had frequent admissions for intox. Podiatry consultation requested for discolored toe nails and dry scaling on both feet. He denies F/V/N/C/SOB/CP. Afebrile. SANTIAGO: vascular: pedal pulses palpable 2/4, TG wnl, CFT brisk to all toes bilaterally. There are no ischemic changes to the foot bilaterally. The feet are warm and well perfused. neuro: epicritic and protective sensations grossly intact bilaterally. There are no focal motor or sensory deficits bilaterally. derm: nails are elongated, discolored, thickened with subungual debris, tendern to palpation x 10. No nail bed ulcers, no signs of infection. There are dry scaling lesions dorsal digits and plantar aspect of the foot bilaterally. There are no open sores, no signs of infection. Imp: 64 year old male with tinea pedis bilaterally and onychomycosis x 10 1. Recommend TP clotrimazole to apply to the feet daily. Can be done outpatient. 2. We discussed appropriate foot hygiene. 3. Will obtain nail nipper for debridement on Thursday. Will plan for nail debridement if patient is still here on Thursday. Thank you for the courtesy of this consultation. Elena Lagos DPM
[2019-07-24 13:55] VITALS: BP 126/67; PULSE 90
--- NOTE | 2019-07-24 14:17 | EKG ---
Test Reason : Blood Pressure : / mmHG Vent. Rate : 094 BPM Atrial Rate : 094 BPM P-R Int : 176 ms QRS Dur : 102 ms QT Int : 374 ms P-R-T Axes : 023 -25 062 degrees QTc Int : 467 ms SINUS RHYTHM WITH PREMATURE ATRIAL COMPLEXES NONSPECIFIC ST ABNORMALITY ABNORMAL ECG Confirmed by MD JESSY, JUNIOR ([id number]) on 07/24/2019 2:16:49 PM Referred By: Confirmed By:JUNIOR JIMÉNEZ MD
[2019-07-24] MEDS ORDERED: MAGNESIUM OXIDE 400 MG TABLET (FP) PO ONE (15:11)
--- NOTE | 2019-07-24 15:46 | DS ---
Physical Exam: SUBJECTIVE: Patient seen and examined OBJECTIVE: Vital Signs Period Temp Pulse Resp BP Sys/Jang Pulse Ox Last 24 Hr 97.8 F-98 F 79-90 16-22 126-164/64-94 98-98 PHYSICAL EXAM GENERAL: The patient is awake, alert, and fully oriented, in no acute distress. HEAD: Normal with no signs of trauma. EYES: PERRL, extraocular movements intact, sclera anicteric, conjunctiva clear. ENT: Ears normal, nares patent, oropharynx clear without exudates, moist mucous membranes. NECK: Trachea midline, full range of motion, supple. LUNGS: Breath sounds equal, clear to auscultation bilaterally, no wheezes, no crackles, no accessory muscle use. HEART: Regular rate and rhythm, S1, S2 without murmur, rub or gallop. ABDOMEN: Soft, nontender, nondistended, normoactive bowel sounds, no guarding, no rebound, no hepatosplenomegaly, no masses. EXTREMITIES: 2+ pulses, warm, well-perfused, no edema. NEUROLOGICAL: Cranial nerves II through XII grossly intact. Normal speech, gait not observed. PSYCH: Normal mood, normal affect. SKIN: Warm, dry, normal turgor, no rashes or lesions noted. LABS Laboratory Results - last 24 hr 07/24/19 07/24/19 07/24/19 05:20 05:20 05:20 WBC 3.8 L RBC 3.59 L Hgb 9.0 L Hct 28.6 L MCV 79.5 L MCH 25.0 L MCHC 31.4 L RDW 22.5 H Plt Count 254 MPV 8.2 Absolute Neuts (auto) 3.3 Neutrophils % 87.4 H D Lymphocytes % 10.7 D Monocytes % 1.7 L D Eosinophils % 0.0 D Basophils % 0.2 Nucleated RBC % 0 PT with INR 12.30 INR 1.04 Sodium 140 Potassium 3.3 L Chloride 104 Carbon Dioxide 29 Anion Gap 7 L BUN 9.6 Creatinine 0.6 Est GFR (CKD-EPI)AfAm 123.15 Est GFR (CKD-EPI)NonAf 106.25 POC Glucometer Random Glucose 167 H Calcium 8.3 L Phosphorus 2.6 Magnesium 1.4 L Total Bilirubin 0.5 AST 61 H ALT 36 Alkaline Phosphatase 89 Total Protein 6.1 L Albumin 2.6 L 07/24/19 05:27 WBC RBC Hgb Hct MCV MCH MCHC RDW Plt Count MPV Absolute Neuts (auto) Neutrophils % Lymphocytes % Monocytes % Eosinophils % Basophils % Nucleated RBC % PT with INR INR Sodium Potassium Chloride Carbon Dioxide Anion Gap BUN Creatinine Est GFR (CKD-EPI)AfAm Est GFR (CKD-EPI)NonAf POC Glucometer 160 Random Glucose Calcium Phosphorus Magnesium Total Bilirubin AST ALT Alkaline Phosphatase Total Protein Albumin HOSPITAL COURSE: Date of Admission:07/22/19 Date of Discharge: 07/24/19 Discharge Summary Problems reviewed: Yes Reason For Visit: ALCOHOLIC INTOXICATION/SYNCOPE Current Active Problems Alcohol abuse (Acute) Fall (Acute) Hypokalemia (Chronic) Condition: Guarded - Instructions Disposition: AGAINST MEDICAL ADVICE - Home Medications Comprehensive Discharge Medication List: Ambulatory Orders NK [No Known Home Medication] 07/23/19 - Discharge Referral Referred to [facility] Med P.C.: No
== END 2019-07-24 15:50 | disposition left against medical advice (07) ==
LOC: JER 20:38 → INTOOBSV 22:30 → UNDOADMOB 22:30 → JERBED 22:30 → J2W 07-23 11:46 → UNDODISOB 07-24 15:50
PROVIDERS: ADMIT Internal Medicine; ATTEND Internal Medicine
PROC: 3E0333Z Introduction of Anti-inflammatory into Peripheral Vein, Percutaneous Approach (ICD-10-PCS; principal; 2019-07-23)
PROC: 3E0337Z Introduction of Electrolytic and Water Balance Substance into Peripheral Vein, Percutaneous Approach (ICD-10-PCS; 2019-07-23)
PROC: 3E033GC Introduction of Other Therapeutic Substance into Peripheral Vein, Percutaneous Approach (ICD-10-PCS; 2019-07-23)
PROC: 3E013GC Introduction of Other Therapeutic Substance into Subcutaneous Tissue, Percutaneous Approach (ICD-10-PCS; 2019-07-23)
DX: F10.220 Alcohol dependence with intoxication, uncomplicated (principal); E87.6 Hypokalemia; R74.0 Nonspecific elevation of levels of transaminase and lactic acid dehydrogenase [LDH]; J44.9 Chronic obstructive pulmonary disease, unspecified; D64.89 Other specified anemias; E66.9 Obesity, unspecified; Z68.33 Body mass index [BMI] 33.0-33.9, adult; C45.9 Mesothelioma, unspecified; E78.00 Pure hypercholesterolemia, unspecified; Z91.14 Patient's other noncompliance with medication regimen; Z91.013 Allergy to seafood; Z59.0 Homelessness; B35.3 Tinea pedis; B35.1 Tinea unguium; W19.XXXA Unspecified fall, initial encounter; Y93.89 Activity, other specified; Y92.89 Other specified places as the place of occurrence of the external cause
CPT/HCPCS: 36415; 70450-TC; 80053; 80307; 82962; 83735; 84100; 84484; 85025; 85610; 93005; 93010; 94640; 96361; 96372; 96374; 96375; 99284-25; G0378; J1644; J7030

== ENCOUNTER 2019-07-24 20:25 | Emergency (ER) | payer OTHER ==
[2019-07-24 20:33] VITALS: TEMP 98; BMI 33.0
--- NOTE | 2019-07-24 21:16 | PDOC ---
History of Present Illness - General Chief Complaint: Alcohol intoxication Stated Complaint: INTOX Time Seen by Provider: 07/24/19 21:05 History Source: Patient - History of Present Illness Timing/Duration: other Past History - Past Medical History Allergies/Adverse Reactions: Allergies Allergy/AdvReac Type Severity Reaction Status Date / Time Fish Containing Products Allergy Mild Swelling Verified 07/24/19 20:33 No Known Drug Allergies Allergy Verified 07/24/19 20:33 Home Medications: Ambulatory Orders NK [No Known Home Medication] 07/23/19 Anemia: No Asthma: No Cancer: Yes (mesothelioma lung cancer) Cardiac Disorders: No CVA: No COPD: No CHF: No DVT: No Dementia: No Diabetes: No Dialysis: No GI Disorders: No Disorders: No HTN: Yes (non compliance) Hypercholesterolemia: Yes Kidney Stones: No Liver Disease: Yes (ETOH abuse) Psychiatric Problems: Yes (ETOH abuse) Seizures: No Thyroid Disease: No Lung CA: Yes (Mesothelioma) - Surgical History Abdominal Surgery: No Appendectomy: No Cardiac Surgery: No Cholecystectomy: No Lung Surgery: No Neurologic Surgery: No Orthopedic Surgery: No - Reproductive History Testicular Surgery: No - Immunization History Td Vaccination: Yes TDAP Vaccination: Yes Immunization Up to Date: Yes - Psycho Social/Smoking Cessation Hx Smoking Status: No Smoking History: Former smoker Have you smoked in the past 12 months: No Number of Cigarettes Smoked Daily: 0 If you are a former smoker, when did you quit?: 0 Cigars Per Day: 0 Information on smoking cessation initiated: No 'Breaking Loose' booklet given: 09/22/17 Hx Alcohol Use: Yes Drug/Substance Use Hx: No Substance Use Type: Alcohol Hx Substance Use Treatment: Yes Review of Systems - Review of Systems Constitutional: No: Chills, Fever Respiratory: No: Cough, Shortness of Breath Cardiac (ROS): No: Chest Pain ABD/GI: No: Constipated, Diarrhea, Nausea, Vomiting, Abdominal cramping : No: Dysuria Neurological: No: Headache *Physical Exam - Vital Signs Last Vital Signs Temp Pulse Resp BP Pulse Ox 98.0 F 93 H 18 94/61 96 07/24/19 20:31 07/24/19 20:31 07/24/19 20:31 07/24/19 20:31 07/24/19 20:31 - Physical Exam General Appearance: Yes: Appropriately Dressed. No: Apparent Distress HEENT: positive: Normal Voice Neck: positive: Supple Respiratory/Chest: positive: Lungs Clear, Normal Breath Sounds. negative: Respiratory Distress Cardiovascular: positive: Regular Rate, S1, S2 Gastrointestinal/Abdominal: positive: Soft. negative: Tender Musculoskeletal: negative: CVA Tenderness Integumentary: positive: Dry, Warm Neurologic: positive: Alert, Normal Mood/Affect ED Treatment Course - LABORATORY CBC & Chemistry Diagram: 07/24/19 21:31 07/24/19 21:31 Medical Decision Making - Medical Decision Making 07/24/19 21:17 64-year-old male well-known to the ED with past medical history of alcohol abuse with multiple ED visits for intoxication, COPD, mesothelioma, not on oxygen, chronic back pain brought in by EMS after found intoxicated on the street tonight. Patient was seen in ED 2 days ago for possible syncope [place] and admitted for profound hypokalemia (mo chronic in nature) with EKG changes but left AMA earlier today. Patient currently denies any chest pain or shortness of breath. States he agrees to be admitted at this time see exam ETOH intox Left AMA from floor today after admitted 2 days ago for hypokalemia w/ ekg changes, since given K replacement No med complaints at this time Stable in ED -will rpt ekg/labs and discuss dispo w/ admitting team 07/24/19 22:33 QTc 502, compared to 467 on ekg from 07/22/2019. Based on chart review, patient has had prolonged QTc on multiple EKGs in the past, at times in association with hypo-K. Chemistry pending 07/25/19 00:35 Labs unremarkable, K3.5. Per discussion w/ admitting team, as labs negative and patient asymptomatic, no need for readmission at this time. Pt now pending sobriety. Discharge - Discharge Information Problems reviewed: Yes Clinical Impression/Diagnosis: Prolonged QT interval Alcohol dependence with intoxication Qualifiers: Complication of substance-induced condition: uncomplicated Qualified Code(s): F10.220 - Alcohol dependence with intoxication, uncomplicated Condition: Improved - Follow up/Referral - Patient Discharge Instructions Patient Printed Discharge Instructions: DI for Alcohol Abuse Additional Instructions: Return to ED for any worsening of symptoms, otherwise continue to follow-up with your doctors - Post Discharge Activity
[2019-07-24 22:02] LABS: BASO % 0.2 % (0-2.0); EOS % 0.1 % (0-4.5); HEMATOCRIT 29.1 % (35.4-49); HEMOGLOBIN 8.9 GM/dL (11.7-16.9); LYMPH % 14.6 % (8-40); MCH 24.9 pg (25.7-33.7); MCHC 30.7 g/dl (32.0-35.9); MONO % 5.5 % (3.8-10.2); NEUT % 79.6 % (42.8-82.8); PLATELET COUNT 336 K/MM3 (134-434); RBC 3.59 M/mm3 (4.00-5.60); RDW 22.2 % (11.9-15.9)
[2019-07-24 22:38] LABS: ALBUMIN 2.9 g/dl (3.4-5.0); ALK PHOS 91 U/L (45-117); ANION GAP 12 MMOL/L (8-16); BILIRUBIN,TOTAL 0.2 mg/dL (0.2-1); BLOOD UREA NITROGEN 12.7 mg/dL (7-18); CALCIUM 8.7 mg/dL (8.5-10.1); CHLORIDE 105 mmol/L (98-107); CO2 24 mmol/L (21-32); CREATININE 0.8 mg/dL (0.55-1.3); GLUCOSE,RANDOM 154 mg/dL (74-106); POTASSIUM 3.5 mmol/L (3.5-5.1); SGOT/AST 73 U/L (15-37); SGPT/ALT 42 U/L (13-61); SODIUM 141 mmol/L (136-145); TOT PROT 6.4 g/dl (6.4-8.2)
[2019-07-25 05:52] VITALS: BP 100/60; PULSE 90
--- NOTE | 2019-07-25 09:14 | EKG ---
Test Reason : Blood Pressure : / mmHG Vent. Rate : 086 BPM Atrial Rate : 086 BPM P-R Int : 174 ms QRS Dur : 100 ms QT Int : 420 ms P-R-T Axes : 033 -37 064 degrees QTc Int : 502 ms Artifact NORMAL SINUS RHYTHM LEFT AXIS DEVIATION Consider SEPTAL INFARCT , AGE UNDETERMINED PROLONGED QT ABNORMAL ECG WHEN COMPARED WITH ECG OF 23-JUL-2019 01:36, PREMATURE ATRIAL COMPLEXES ARE NO LONGER PRESENT SEPTAL INFARCT IS NOW PRESENT NONSPECIFIC T WAVE ABNORMALITY NOW EVIDENT IN ANTERIOR LEADS Confirmed by Veena Zurita ([id number]) on 07/25/2019 9:14:37 AM Referred By: Confirmed By:Veena Zurita
== END 2019-07-25 07:07 | disposition home or self-care (01) ==
LOC: JER 20:25
DX: F10.220 Alcohol dependence with intoxication, uncomplicated (principal); I10 Essential (primary) hypertension; C45.9 Mesothelioma, unspecified; J44.9 Chronic obstructive pulmonary disease, unspecified; R94.31 Abnormal electrocardiogram [ECG] [EKG]; Z59.0 Homelessness; Z91.013 Allergy to seafood
CPT/HCPCS: 36415; 71045-TC-FY; 80053; 82550; 82553; 84484; 85025; 93005; 93010; 99285-25

== ENCOUNTER 2019-07-25 21:00 | Emergency (ER) | payer OTHER ==
[2019-07-25 21:39] VITALS: BMI 34.9
--- NOTE | 2019-07-26 05:32 | PDOC ---
*Physical Exam - Vital Signs Last Vital Signs Temp Pulse Resp BP Pulse Ox 98.7 F 79 19 96/56 L 92 L 07/25/19 21:33 07/25/19 21:33 07/25/19 21:33 07/25/19 21:33 07/25/19 21:33 Medical Decision Making - Medical Decision Making 07/26/19 05:32 Patient seen by the advanced practice provider under my supervision. Ancillary testing reviewed as necessary. I agree with plan as outlined by the advanced practice provider. Discharge - Discharge Information Problems reviewed: Yes Clinical Impression/Diagnosis: Alcohol abuse Condition: Stable Disposition: HOME - Follow up/Referral - Patient Discharge Instructions Patient Printed Discharge Instructions: DI for Alcohol Abuse Additional Instructions: Get plenty of rest and drink plenty of fluids. Avoid abruptly stopping alcohol as this can cause severe and dangerous withdrawal symptoms. You should consider getting professional help to stop drinking. Return to the emergency department for high fevers, shaking chills, profuse vomiting, visual changes, seizure, other withdrawal symptoms or any other worsening symptoms. - Post Discharge Activity
[2019-07-26] MEDS ORDERED: chlordiazePOXIDE HCL 25 MG CAPSULE PO ONE (05:35)
--- NOTE | 2019-07-26 05:45 | PDOC ---
History of Present Illness - General Chief Complaint: Alcohol intoxication Stated Complaint: INTOXICATED Time Seen by Provider: 07/26/19 05:29 History Source: Patient - History of Present Illness Initial Comments: 07/26/19 05:59 64-year-old undomiciled male multiple visits for alcohol intoxication complaining of generalized malaise. Patient reports that he drank alcohol brought in by ambulance for evaluation. No history of fall or trauma. Past History - Past Medical History Allergies/Adverse Reactions: Allergies Allergy/AdvReac Type Severity Reaction Status Date / Time Fish Containing Products Allergy Mild Swelling Verified 07/24/19 20:33 No Known Drug Allergies Allergy Verified 07/24/19 20:33 Home Medications: Ambulatory Orders NK [No Known Home Medication] 07/23/19 Anemia: No Asthma: No Cancer: Yes (mesothelioma lung cancer) Cardiac Disorders: No CVA: No COPD: No CHF: No DVT: No Dementia: No Diabetes: No Dialysis: No GI Disorders: No Disorders: No HTN: Yes (non compliance) Hypercholesterolemia: Yes Kidney Stones: No Liver Disease: Yes (ETOH abuse) Psychiatric Problems: Yes (ETOH abuse) Seizures: No Thyroid Disease: No Lung CA: Yes (Mesothelioma) - Surgical History Abdominal Surgery: No Appendectomy: No Cardiac Surgery: No Cholecystectomy: No Lung Surgery: No Neurologic Surgery: No Orthopedic Surgery: No - Reproductive History Testicular Surgery: No - Immunization History Td Vaccination: Yes TDAP Vaccination: Yes Immunization Up to Date: Yes - Psycho Social/Smoking Cessation Hx Smoking Status: No Smoking History: Unknown if ever smoked Have you smoked in the past 12 months: No Number of Cigarettes Smoked Daily: 0 If you are a former smoker, when did you quit?: 0 Cigars Per Day: 0 'Breaking Loose' booklet given: 09/22/17 Hx Alcohol Use: Yes (unable to provide info) Drug/Substance Use Hx: No Substance Use Type: Alcohol Hx Substance Use Treatment: Yes *Physical Exam - Vital Signs Last Vital Signs Temp Pulse Resp BP Pulse Ox 98.7 F 79 19 96/56 L 92 L 07/25/19 21:33 07/25/19 21:33 07/25/19 21:33 07/25/19 21:33 07/25/19 21:33 - Physical Exam General Appearance: Yes: Disheveled. No: Alcohol on Breath, Intoxicated Respiratory/Chest: positive: Lungs Clear, Normal Breath Sounds Cardiovascular: positive: Regular Rhythm, Regular Rate Extremity: positive: Normal Capillary Refill, Normal Inspection Integumentary: positive: Normal Color, Dry, Warm Neurologic: positive: Fully Oriented, Alert, Normal Mood/Affect Medical Decision Making - Medical Decision Making 07/26/19 patient awaiting reevaluation. patient signed out to Yes[facility] Discharge - Discharge Information Problems reviewed: Yes Clinical Impression/Diagnosis: Alcohol abuse Condition: Stable Disposition: HOME - Follow up/Referral - Patient Discharge Instructions Patient Printed Discharge Instructions: DI for Alcohol Abuse Additional Instructions: Get plenty of rest and drink plenty of fluids. Avoid abruptly stopping alcohol as this can cause severe and dangerous withdrawal symptoms. You should consider getting professional help to stop drinking. Return to the emergency department for high fevers, shaking chills, profuse vomiting, visual changes, seizure, other withdrawal symptoms or any other worsening symptoms. - Post Discharge Activity
--- NOTE | 2019-07-26 08:10 | PDOC ---
*Physical Exam - Vital Signs Last Vital Signs Temp Pulse Resp BP Pulse Ox 98.1 F 89 20 110/62 96 07/26/19 06:30 07/26/19 06:30 07/26/19 06:30 07/26/19 06:30 07/26/19 06:30 - Physical Exam 07/26/19 08:05 Pt resting comfortably on the stretcher no tongue fasciculations appreciated no hand tremors appreciated Speaking in full and clear sentences and following commands appropriately Respiratory/Chest: positive: Normal Breath Sounds. negative: Respiratory Distress Cardiovascular: positive: Regular Rhythm, Regular Rate, S1, S2 ED Treatment Course - Medications Given in the ED: ED Medications Discontinued Medications Generic Name Dose Route Start Last Admin Trade Name Freq PRN Reason Stop Dose Admin Chlordiazepoxide HCl 50 mg 07/26/19 05:35 07/26/19 06:00 Librium - PO 07/26/19 05:36 50 mg ONCE ONE Administration ED Progress Note - Progress Note Progress Note: 07/26/19 08:06 The patient was endorsed to me by HALLIE Casanova for further evaluation and treatment. The patient is well-known to the ED and has a history of EtOH abuse but was not intoxicated upon initial evaluation. The patient was given Librium and was observed in the ED. He is resting comfortably and does not have any signs of withdrawal symptoms or impending DTs. Medical Decision Making - Medical Decision Making 07/26/19 08:07 Assessment: Patient is a 64-year-old male with a history of EtOH abuse who presented to the ED feeling symptoms of withdrawal. Plan: After being treated with Librium, the patient has no signs of acute withdrawal symptoms or impending DTs. He will be discharged from the emergency department and has been advised to follow-up with his primary doctor within 1 day for repeat evaluation. I have discussed with him that abruptly stopping his EtOH can cause withdrawal symptoms and he should either wean off or get professional help. The patient understands and agrees with this treatment and plan and he is stable for discharge. Discharge - Discharge Information Problems reviewed: Yes Clinical Impression/Diagnosis: Alcohol abuse Condition: Stable Disposition: HOME - Follow up/Referral - Patient Discharge Instructions Patient Printed Discharge Instructions: DI for Alcohol Abuse Additional Instructions: Get plenty of rest and drink plenty of fluids. Avoid abruptly stopping alcohol as this can cause severe and dangerous withdrawal symptoms. You should consider getting professional help to stop drinking. Return to the emergency department for high fevers, shaking chills, profuse vomiting, visual changes, seizure, other withdrawal symptoms or any other worsening symptoms. - Post Discharge Activity
[2019-07-26 08:31] VITALS: BP 173/82; PULSE 88; TEMP 98.7
== END 2019-07-26 08:47 | disposition home or self-care (01) ==
LOC: JER 21:00
DX: F10.220 Alcohol dependence with intoxication, uncomplicated (principal); I10 Essential (primary) hypertension; C45.9 Mesothelioma, unspecified; E78.00 Pure hypercholesterolemia, unspecified; Z91.14 Patient's other noncompliance with medication regimen; Z91.013 Allergy to seafood; Z59.0 Homelessness
CPT/HCPCS: 99283-25

== ENCOUNTER 2019-07-26 21:34 | Emergency (ER) | payer OTHER ==
--- NOTE | 2019-07-26 21:42 | PDOC ---
Rapid Medical Evaluation Time Seen by Provider: 07/26/19 21:40 Medical Evaluation: Allergies Allergy/AdvReac Type Severity Reaction Status Date / Time Fish Containing Products Allergy Mild Swelling Verified 07/24/19 20:33 No Known Drug Allergies Allergy Verified 07/24/19 20:33 07/26/19 21:40 Pt presents to the ER for intox and back pain. Exam: in wheel chair. NAD. alcohol on breath Orders: nothing Pt to proceed to the ER for further evaluation Discharge Disposition - Diagnosis Alcohol intoxication - Referrals - Patient Instructions - Post Discharge Activity
[2019-07-26 21:48] VITALS: BP 152/86; PULSE 84; TEMP 98.4; BMI 34.8
--- NOTE | 2019-07-26 22:23 | PDOC ---
History of Present Illness - General Chief Complaint: Alcohol intoxication Stated Complaint: INTOX Time Seen by Provider: 07/26/19 21:40 - History of Present Illness Initial Comments: 07/26/19 22:29 The patient is a 64 year old male with a history of Mesothelioma, HTN, HLD, ETOH abuse, chronic back pain, who presents for evaluation of etoh abuse. The patient presents via EMS for evaluation of ETOH abuse. The patient is well known to the ED. He currently denies any acute complaints and endorses alcohol use today. The patient is sitting watching TV in the department. He otherwise denies fevers, chills, SOB, chest pain, nausea, vomiting, abdominal pain, numbness, tingling, weakness, or changes with urination or bowel movements. Past History - Past Medical History Allergies/Adverse Reactions: Allergies Allergy/AdvReac Type Severity Reaction Status Date / Time Fish Containing Products Allergy Mild Swelling Verified 07/24/19 20:33 No Known Drug Allergies Allergy Verified 07/24/19 20:33 Home Medications: Ambulatory Orders NK [No Known Home Medication] 07/23/19 Anemia: No Asthma: No Cancer: Yes (mesothelioma lung cancer) Cardiac Disorders: No CVA: No COPD: No CHF: No DVT: No Dementia: No Diabetes: No Dialysis: No GI Disorders: No Disorders: No HTN: Yes (non compliance) Hypercholesterolemia: Yes Kidney Stones: No Liver Disease: Yes (ETOH abuse) Psychiatric Problems: Yes (ETOH abuse) Seizures: No Thyroid Disease: No Lung CA: Yes (Mesothelioma) - Surgical History Abdominal Surgery: No Appendectomy: No Cardiac Surgery: No Cholecystectomy: No Lung Surgery: No Neurologic Surgery: No Orthopedic Surgery: No - Reproductive History Testicular Surgery: No - Immunization History Td Vaccination: Yes TDAP Vaccination: Yes Immunization Up to Date: Yes - Psycho Social/Smoking Cessation Hx Smoking Status: No Smoking History: Never smoked Have you smoked in the past 12 months: No Number of Cigarettes Smoked Daily: 0 If you are a former smoker, when did you quit?: 0 Cigars Per Day: 0 'Breaking Loose' booklet given: 09/22/17 Hx Alcohol Use: Yes Drug/Substance Use Hx: No Substance Use Type: Alcohol Hx Substance Use Treatment: Yes Review of Systems - Review of Systems Comments:: 07/26/19 22:36 Constitutional: No fevers, chills, fatigue, malaise HEENT: No Rhinorrhea, nasal congestion, visual changes Cardiovascular: No chest pain, syncope, palpitations, lightheadedness Respiratory: No Cough, SOB, Hemoptysis, Gastrointestinal: No Abdominal pain, Nausea, Vomiting, Constipation, Diarrhea, Melena Genitourinary: No Dysuria, Frequency, Urgency, Hesitancy, Hematuria, Flank pain Musculoskeletal: No Myalgia, arthralgia Skin: No rashes, itching, bruising, pallor Neurologic: No Headache, Dizziness, Numbness, Weakness, or Tingling Psychiatric: No Hallucinations. No SI or HI *Physical Exam - Vital Signs Last Vital Signs Temp Pulse Resp BP Pulse Ox 98.4 F 84 20 152/86 95 07/26/19 21:45 07/26/19 21:45 07/26/19 21:45 07/26/19 21:45 07/26/19 21:45 - Physical Exam 07/26/19 22:36 General Appearance: Nourished. ETOH on breath. No Apparent Distress HEENT: EOMI, DOUGLAS. No Pharyngeal Erythema, Tonsillar Exudate, Tonsillar Erythema Neck: No Cervical Lymphadenopathy Respiratory/Chest: Lungs Clear, Normal Breath Sounds. No Crackles, Rales, Rhonchi, Wheezing Cardiovascular: Regular Rhythm, Regular Rate. No Murmur, Gallops, Rubs Gastrointestinal/Abdominal: Normal Bowel Sounds, Soft. No Guarding, Rebound, Tenderness Musculoskeletal: No CVA Tenderness Extremity: Normal Capillary Refill Integumentary: Normal Color, Dry, Warm Neurologic: Fully Oriented, Alert, Normal Mood/Affect, Normal Response, Intoxicated. Motor Strength 5/5. Normal Deep tendon reflexes Medical Decision Making - Medical Decision Making 07/26/19 22:37 The patient is a 64 year old male with a history of Mesothelioma, HTN, HLD, ETOH abuse, chronic back pain, who presents for evaluation of etoh abuse. The patient appears clinically well on exam here in the ED with no acute complaints. We are comfortable discharging the patient home in stable condition. Patient made aware of impression and plan, return precautions discussed including but not limited to worsening pain or symptoms, fevers, or signs of infection, chest pain, respiratory distress, inability to tolerate oral intake, dehydration, syncope, or neurologic changes. The patient is to follow up with PMD as recommended within 1 week, follow up information provided and the patient will call for an appointment. The patient is to take medications as instructed for duration of time and continue with supportive care , avoid triggers and precipitants. Patient is safe for outpatient follow-up. Discharge - Discharge Information Problems reviewed: Yes Clinical Impression/Diagnosis: Alcohol intoxication Qualifiers: Complication of substance-induced condition: with unspecified complication Qualified Code(s): F10.929 - Alcohol use, unspecified with intoxication, unspecified Condition: Stable Disposition: HOME - Admission No - Follow up/Referral - Patient Discharge Instructions Patient Printed Discharge Instructions: DI for Alcohol Abuse Additional Instructions: 1) Please follow-up with your primary care doctor in the next 2-3 days. Please call tomorrow to schedule a follow up appointment. If you cannot follow up with your doctor within 1 week please return to the Emergency Department for any urgent issues. 2) If you have any worsening of symptoms or any other concerns, please return to the ER immediately. Return if worsening symptoms including fevers, headache, vomiting, visual or hearing disturbances, abdominal pain, chest pain, shortness of breath, syncope, dehydration, inability to take things by mouth/vomiting, altered mental status, or worsening concerning symptoms. 3) Please continue taking your home medications as directed. Side effects may include upset stomach, abdominal pain, vomiting, or diarrhea. Do not drink alcohol with your medications. - Post Discharge Activity
--- NOTE | 2019-07-26 22:25 | PDOC ---
Attending Attestation - Resident Resident Name: Smith Dunbar - ED Attending Attestation I have performed the following: I have examined & evaluated the patient, The case was reviewed & discussed with the resident, I agree w/resident's findings & plan - HPI HPI: 07/26/19 22:30 see resident hpi - Physicial Exam PE: 07/26/19 22:30 see resident exam - Medical Decision Making 07/26/19 22:30 Undomiciled male known well to this department arrives by ambulance with no specific complaints He is currently sitting in a wheelchair watching TV in no distress Will DC home with recommended outpatient follow-up as usual
== END 2019-07-26 23:03 | disposition home or self-care (01) ==
LOC: JER 21:34
DX: F10.220 Alcohol dependence with intoxication, uncomplicated (principal); C45.9 Mesothelioma, unspecified; M54.5 Low back pain; G89.29 Other chronic pain; Z59.0 Homelessness; Z91.013 Allergy to seafood
CPT/HCPCS: 99281-25

== ENCOUNTER 2019-08-02 17:45 | Emergency (ER) | payer OTHER ==
--- NOTE | 2019-08-02 18:15 | PDOC ---
Rapid Medical Evaluation Time Seen by Provider: 08/02/19 18:11 Medical Evaluation: Allergies Allergy/AdvReac Type Severity Reaction Status Date / Time Fish Containing Products Allergy Mild Swelling Verified 07/24/19 20:33 No Known Drug Allergies Allergy Verified 07/24/19 20:33 08/02/19 18:11 Pt presents for evaluation of intoxication. He has no other complaints at this time. States he drank a pint of vodka this morning. Exam: disheveled, alcohol on the breath Orders: nothing, MTF Pt to proceed to the ER for further evaluation Discharge Disposition - Diagnosis Alcohol intoxication - Referrals - Patient Instructions - Post Discharge Activity
[2019-08-02 18:17] VITALS: BMI 33.4
--- NOTE | 2019-08-02 21:07 | PDOC ---
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 Patient reports drinking 2 pints of vodka this morning. Denies any focal or acute complaints. Reports continued, unchanged, chronic back pain. Intermittently cooperative with history / ROS: denies chest pain, SOB, nausea, vomiting, headache, abdominal pain, fevers, chills. Declines to continue history, stating he wants to rest. Promptly falls asleep, snoring. All: NKDA Meds: Per chart PMH: As above PSH: Per chart SHx: Chronic alcoholic, denies illicit drugs Past History - Travel Traveled outside of the country in the last 30 days: No Close contact w/someone who was outside of country & ill: No - Past Medical History Allergies/Adverse Reactions: Allergies Allergy/AdvReac Type Severity Reaction Status Date / Time Fish Containing Products Allergy Mild Swelling Verified 08/02/19 18:15 No Known Drug Allergies Allergy Verified 08/02/19 18:15 Home Medications: Ambulatory Orders NK [No Known Home Medication] 07/23/19 Anemia: No Asthma: No Cancer: Yes (mesothelioma lung cancer) Cardiac Disorders: No CVA: No COPD: No CHF: No DVT: No Dementia: No Diabetes: No Dialysis: No GI Disorders: No Disorders: No HTN: Yes (non compliance) Hypercholesterolemia: Yes Kidney Stones: No Liver Disease: Yes (ETOH abuse) Psychiatric Problems: Yes (ETOH abuse) Seizures: No Thyroid Disease: No Lung CA: Yes (Mesothelioma) - Surgical History Abdominal Surgery: No Appendectomy: No Cardiac Surgery: No Cholecystectomy: No Lung Surgery: No Neurologic Surgery: No Orthopedic Surgery: No - Reproductive History Testicular Surgery: No - Immunization History Td Vaccination: Yes TDAP Vaccination: Yes Immunization Up to Date: Yes - Psycho Social/Smoking Cessation Hx Smoking Status: No Smoking History: Never smoked Have you smoked in the past 12 months: No Number of Cigarettes Smoked Daily: 0 If you are a former smoker, when did you quit?: 0 Cigars Per Day: 0 'Breaking Loose' booklet given: 09/22/17 Hx Alcohol Use: No Drug/Substance Use Hx: No Substance Use Type: Alcohol Hx Substance Use Treatment: Yes Review of Systems - Review of Systems Able to Perform ROS?: No (intoxicated) Is the patient limited Yakut proficient: Yes Constitutional: No: Chills, Fever Respiratory: No: Cough, Shortness of Breath Cardiac (ROS): No: Chest Pain ABD/GI: No: Nausea, Vomiting *Physical Exam - Vital Signs Last Vital Signs Temp Pulse Resp BP Pulse Ox 98.2 F 90 18 119/72 98 08/02/19 18:15 08/02/19 18:15 08/02/19 18:15 08/02/19 18:15 08/02/19 18:15 - Physical Exam 08/02/19 21:26 Vitals reviewed, AFVSS GEN: Intoxicated, unkempt, disheveled, smells of alcohol, appears stated age, NAD. HEENT: NCAT, EOMI, PERRL. Sclera anicteric, non-injected. No facial asymmetry. Moist mucous membranes. Trachea midline. CV: No central cyanosis, warm, normal cap refill LUNG: Normal work of breathing. No cough. GI: Abdomen not assessed. EXTREMITIES: No LE edema. No obvious deformities of all extremities. SKIN: Warm, dry, no rashes appreciated, non-jaundiced. PSYCH: Intoxicated, minimally cooperative. NEURO: Unable to assess. 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 Patient grossly intoxicated, sleeping, somewhat cooperative, stable vitals and exam, will allow to metabolize and reassess. - Metabolize, reassess 08/02/19 21:59 - Patient endorsed to overnight resident, Dr. Munguia Discharge - Discharge Information Problems reviewed: Yes Clinical Impression/Diagnosis: Alcohol intoxication Qualifiers: Complication of substance-induced condition: uncomplicated Qualified Code(s): F10.920 - Alcohol use, unspecified with intoxication, uncomplicated Condition: Improved Disposition: HOME - Admission No - Follow up/Referral - Patient Discharge Instructions Patient Printed Discharge Instructions: DI for Alcohol Abuse Additional Instructions: You were seen and evaluated for intoxication. Please consider rehabilitation and alcohol cessation. Return to the ED for any new or concerning symptoms. - Post Discharge Activity
--- NOTE | 2019-08-02 22:02 | PDOC ---
*Physical Exam - Vital Signs Last Vital Signs Temp Pulse Resp BP Pulse Ox 98.2 F 90 18 119/72 98 08/02/19 18:15 08/02/19 18:15 08/02/19 18:15 08/02/19 18:15 08/02/19 18:15 Medical Decision Making - Medical Decision Making Patient signed out by Dr. Sparrow Patient admits to drinking alcohol Slurred speech, somnolent but arousable Otherwise, no concerning features on exam Pending clinical sobriety 08/02/19 22:02 Patient able to ambulate with steady gait Speech is non-slurred Return precautions Stable for discharge Discharge - Discharge Information Problems reviewed: Yes Clinical Impression/Diagnosis: Alcohol intoxication Qualifiers: Complication of substance-induced condition: uncomplicated Qualified Code(s): F10.920 - Alcohol use, unspecified with intoxication, uncomplicated Condition: Improved Disposition: HOME - Follow up/Referral - Patient Discharge Instructions Patient Printed Discharge Instructions: DI for Alcohol Abuse Additional Instructions: You came into the emergency department with intoxication. Blood work and EKG did not show acute pathology. Follow-up with your primary care provider within 72 hours to discuss this ED visit and to further evaluate your symptoms. Call and make an appointment tomorrow morning. Your workup is not complete until you do so. If you are interested in Detox, you can go to [facility] located on [address] [place] [address] on Thursday morning 8AM. Immediate medical attention is required if you have: a seizure or develop tremors or hallucinations and do not have access to alcohol, vomiting, chest pain, shortness of breath, abdominal pain, thoughts of self-harm, or an other new or concerning symptoms. If you think you are having an emergency, call for emergency medical services or present to the emergency department right away. - Post Discharge Activity
--- NOTE | 2019-08-03 00:34 | PDOC ---
Documentation entered by Susu Gonzales SCRIBE, acting as scribe for Sue Casanova MD. Sue Casanova MD: This documentation has been prepared by the Janet pereira Nirvannie, SCRIBE, under my direction and personally reviewed by me in its entirety. I confirm that the documentation accurately reflects all work, treatment, procedures, and medical decision making performed by me. Attending Attestation - Resident Resident Name: Wing Sparrow - ED Attending Attestation I have performed the following: I have examined & evaluated the patient, The case was reviewed & discussed with the resident, I agree w/resident's findings & plan, Exceptions are as noted - HPI HPI: 08/02/19 21:42 The patient is a 64 year old male, with a significant past medical history of chronic back pain, alcoholism, HTN, and mesothelioma, who presents to the emergency department with, alcohol intoxication. Patient endorses drinking approximately 1 pint of vodka today. He denies any recent chest pain or shortness of breath. Allergies: Fish containing products. Social History: Alcoholic. - Physicial Exam PE: 08/02/19 21:42 intoxicated 64 yo ,well known known to our ED, BIBA disheveled with AOB, seated in wheelchair, sleeping on exam. head :no scalp lacerations face: no facial hematomas or abrasions lungs no wheezing cvs [id number] abd protuberant extremities chronic left arm pain neuro AOB,answers simple questions - Medical Decision Making 08/03/19 00:34 pt will be discharged when it is safe
[2019-08-03 06:20] VITALS: BP 125/77; PULSE 81; TEMP 98.2
[2019-08-03] MEDS ORDERED: chlordiazePOXIDE HCL 25 MG CAPSULE PO ONE (06:41)
[2019-08-03] MEDS ORDERED: chlordiazePOXIDE HCL 25 MG CAPSULE ONE (06:51)
== END 2019-08-03 07:19 | disposition home or self-care (01) ==
LOC: JER 17:45
DX: F10.220 Alcohol dependence with intoxication, uncomplicated (principal); I10 Essential (primary) hypertension; E78.5 Hyperlipidemia, unspecified; C45.9 Mesothelioma, unspecified; M54.5 Low back pain; G89.29 Other chronic pain; Z59.0 Homelessness; Z91.013 Allergy to seafood
CPT/HCPCS: 99283-25

== ENCOUNTER 2019-08-03 08:51 | Inpatient (IN) | payer OTHER ==
--- NOTE | 2019-08-03 08:54 | BHS.RME ---
Substance Use & Tx History - Substance Use History Alcohol Substance amount: 1-3 pints Vodka Frequency of use: Daily Substance route: Oral Physical/Psych/Mental Status - Behavior Eye Contact: Normal - Cooperativeness Cooperativeness: Cooperative - Thinking Thought Processes: Tight - Physical Health Problems Is patient presently having any pain?: No Does patient presently have any injuries (include location): No Does patient currently have a fever: No CIWA Nausea/Vomitin-No Nausea/No Vomiting Muscle Tremors: 4-Moderate,w/Arms Extend Anxiety: 2 Agitation: 2 Paroxysmal Sweats: 2 Orientation: 2-Disoriented Date<2 days Tacttile Disturbances: 0-None Auditory Disturbances: 0-None Visual Disturbances: 0-None Headache: 1-Very Mild CIWA-Ar Total Score: 13
--- NOTE | 2019-08-03 08:57 | HP ---
CIWA Score Nausea/Vomitin-No Nausea/No Vomiting Muscle Tremors: 4-Moderate,w/Arms Extend Anxiety: 2 Agitation: 2 Paroxysmal Sweats: 2 Orientation: 2-Disoriented Date<2 days Tacttile Disturbances: 0-None Auditory Disturbances: 0-None Visual Disturbances: 0-None Headache: 1-Very Mild CIWA-Ar Total Score: 13 - Admission Criteria OASAS Guidelines: Admission for Medically Managed Detox: Requires at least one of the followin. CIWA greater than 12 2. Seizures within the past 24 hours 3. Delirium tremens within the past 24 hours 4. Hallucinations within the past 24 hours 5. Acute intervention needed for co occurring medical disorder 6. Acute intervention needed for co occurring psychiatric disorder 7. Severe withdrawal that cannot be handled at a lower level of care (continued vomiting, continued diarrhea, abnormal vital signs) requiring intravenous medication and/or fluids 8. Admitting History and Physical - Admission Chief Complaint: Mr. De Leon is a 64 yo gentleman who presents to [facility] for "recovery from alcohol". He is requesting a detox admission. History of Present Illness: Mr. De Leon is a 64 yo gentleman who presents to [facility] for "recovery from alcohol". He is requesting a detox admission. He was last admitted to detox in December of 2018. Since that time, he has been to the ED once or twice per month. Review of the last ED visit: intoxication, nl EKG, referred to [facility] and PCP. 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 1-3 pints Vodka daily. Has black outs, unclear when last one was. No withdrawal seizures. 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 Limitations to Obtaining History: No Limitations - Past Medical History Cardiovascular: Yes: HTN, Hyperlipdemia Pulmonary: Yes: Cancer (Mesothelioma), Other (asbestosis) Gastrointestinal: Yes: GERD Psych: Yes: Addictions (EtOH) Musculoskeletal: Yes: Chronic low back pain, Other (joint pain) - Past Surgical History Past Surgical History: Yes: None, Colonoscopy (pt may have had - not sure). 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 History of Recent Travel: No Admission ROS [facility] Allergies/Adverse Reactions: Allergies Allergy/AdvReac Type Severity Reaction Status Date / Time Fish Containing Products Allergy Mild Swelling Verified 08/02/19 18:15 No Known Drug Allergies Allergy Verified 08/02/19 18:15 Exam Limitations: No Limitations - Ebola screening Have you traveled outside of the country in the last 21 days: No Have you had contact with anyone from an Ebola affected area: No Have you been sick,other than usual withdrawal symptoms: No Do you have a fever: No - Review of Systems Constitutional: Loss of Appetite EENT: reports: No Symptoms Reported Respiratory: reports: No Symptoms reported Cardiac: reports: No Symptoms Reported GI: reports: Diarrhea : reports: No Symptoms Reported Musculoskeletal: reports: Back Pain, Joint Pain (hands, knees) Integumentary: reports: Dryness (feet), Other (abrasion left knee) Neuro: reports: No Symptoms reported Endocrine: reports: No Symptoms Reported Hematology: reports: No Symptoms Reported Psychiatric: reports: Agitated, Anxious, Depressed (multiple family members in recent past including son a few months ago) Patient History - Patient Medical History Hx Anemia: No Hx Asthma: No Hx Chronic Obstructive Pulmonary Disease (COPD): No Hx Cancer: Yes (mesothelioma lung cancer) Hx Cardiac Disorders: No Hx Congestive Heart Failure: No Hx Hypertension: Yes (non compliance) Hx Hypercholesterolemia: Yes Hx Pacemaker: No HX Cerebrovascular Accident: No Hx Seizures: No Hx Dementia: No Hx Diabetes: No Hx Gastrointestinal Disorders: No Hx Liver Disease: Yes (ETOH abuse) Hx Genitourinary Disorders: No Hx Sexually Transmitted Disorders: No Hx Renal Disease (ESRD): No Hx Thyroid Disease: No Hx Human Immunodeficiency Virus (HIV): No Hx Hepatitis C: No Hx Depression: No Hx Suicide Attempt: No Hx Bipolar Disorder: No Hx Schizophrenia: No - Patient Surgical History Past Surgical History: No Hx Neurologic Surgery: No Hx Cataract Extraction: No Hx Cardiac Surgery: No Hx Lung Surgery: No Hx Breast Surgery: No Hx Breast Biopsy: No Hx Abdominal Surgery: No Hx Appendectomy: No Hx Cholecystectomy: No Hx Genitourinary Surgery: No Hx Section: No Hx Orthopedic Surgery: No Hx Hysterectomy: No Anesthesia Reaction: No - PPD History Date: 02/10/18 Results: 0 mm - Smoking Cessation Smoking history: Never smoked Have you smoked in the past 12 months: No Aproximately how many cigarettes per day: 0 If you are a former smoker, when did you quit?: 0 Cigars Per Day: 0 Hx Chewing Tobacco Use: No Initiated information on smoking cessation: No - Substances abused Alcohol Substance route: Oral Frequency: Daily Amount used: 1-3 pints Vodka Age of first use: 16 Date of last use: 08/01/19 Admission Physical Exam [facility] - Physical General Appearance: Yes: Disheveled HEENTM: Yes: EOMI, Hearing grossly Normal, Normocephalic, Normal Voice Respiratory: Yes: Lungs Clear, Normal Breath Sounds Neck: Yes: Within Normal Limits Breast: Yes: Breast Exam Deferred Cardiology: Yes: Regular Rate, S1, S2 Abdominal: Yes: Non Tender, Soft, Decreased BS, Protuberent Genitourinary: Yes: Other (deferred) Back: Yes: Normal Inspection Musculoskeletal: Yes: Within Normal Limits Extremities: Yes: Within Normal Limits Neurological: Yes: Alert Integumentary: Yes: Pitting Edema (edema to mid leg, abrasion left knee ~ 1" scab, right dorsum of hand near 5th MCP superficial abrasion) - Diagnostic (1) Alcohol dependence with uncomplicated withdrawal Current Visit: Yes Status: Acute Cleared for Admission [facility] - Detox or Rehab [facility] Level of Care: Medically Managed Breathalyzer - Breathalyzer Breathalyzer: 0 Urine Drug Screen - Test Device Lot number: [id number] Expiration date: 08/12/20 - Control Is test valid?: Yes - Results Drug screen NEGATIVE: No Urine drug screen results: BZO-Benzodiazepines Inpatient Rehab Admission - Rehab Decision to Admit Inpatient rehab admission?: No
[2019-08-03] MEDS ORDERED: chlordiazePOXIDE HCL 25 MG CAPSULE PO PRN (09:12)
[2019-08-03] MEDS ORDERED: MAGNESIUM HYDROX 2400MG/30ML ORAL SUSPENSION 30 ML CUP PO PRN (09:12)
[2019-08-03] MEDS ORDERED: BISMUTH SUBSALICYLATE 262 MG/15 ML BTL PO PRN (09:12)
[2019-08-03] MEDS ORDERED: hydrOXYzine PAMOATE 25 MG CAPSULE (FP) PO PRN (09:12)
[2019-08-03] MEDS ORDERED: ACETAMINOPHEN 325 MG TABLET (FP) PO PRN ×2 (09:12)
[2019-08-03] MEDS ORDERED: MAG HYDROX/AL HYDROX/SIMETH 30 ML UNIT-DOSE CUP PO PRN (09:12)
[2019-08-03] MEDS ORDERED: MAGNESIUM CITRATE 300 ML BOTTLE PO PRN (09:12)
[2019-08-03] MEDS ORDERED: MENTHOL/PHENOL 1 EACH UD MM PRN (09:12)
[2019-08-03] MEDS ORDERED: METHOCARBAMOL 500 MG TABLET PO PRN (09:12)
[2019-08-03] MEDS ORDERED: MELATONIN 5 MG TABLETS PO PRN (09:12)
[2019-08-03] MEDS ORDERED: IBUPROFEN 400 MG TABLET (FP) PO PRN (09:12)
[2019-08-03 09:22] VITALS: BMI 33.0
[2019-08-03] MEDS: PRENATAL VITAMINS W/ FOLIC ACID TABLET (FP) PO SCH (10:04)
[2019-08-03] MEDS: chlordiazePOXIDE HCL 25 MG CAPSULE PO SCH ×3 (10:04→23:06)
[2019-08-03 11:54] LABS: HEMATOCRIT 28.8 % (35.4-49); HEMOGLOBIN 8.9 GM/dL (11.7-16.9); MCH 24.1 pg (25.7-33.7); MCHC 30.8 g/dl (32.0-35.9); MEAN CELL VOLUME 78.1 fl (80-96); MEAN PLT VOLUME 7.6 fl (7.5-11.1); PLATELET COUNT 358 K/MM3 (134-434); RBC 3.69 M/mm3 (4.00-5.60); RDW 21.1 % (11.9-15.9); WHITE BLOOD COUNT 8.5 K/mm3 (4.0-10.0)
[2019-08-03 12:13] LABS: ALBUMIN 3.2 g/dl (3.4-5.0); BILIRUBIN,TOTAL 1.4 mg/dL (0.2-1); BLOOD UREA NITROGEN 7.2 mg/dL (7-18); CALCIUM 8.5 mg/dL (8.5-10.1); CREATININE 0.7 mg/dL (0.55-1.3); POTASSIUM 3.3 mmol/L (3.5-5.1); TOT PROT 6.8 g/dl (6.4-8.2)
[2019-08-03] MEDS ORDERED: POTASSIUM CHLORIDE TABS 20 MEQ TABLET.ER (FP) PO ONE (21:52)
[2019-08-03] MEDS ORDERED: THIAMINE HCL 100 MG TABLET (FP) PO SCH (22:00)
--- NOTE | 2019-08-03 22:23 | PN ---
S Progress Note Note: Patient's potassium level is K3.3 Patient is asymptomatic Laboratory Last Values WBC 8.5 K/mm3 (4.0-10.0) 08/03/19 09:30 RBC 3.69 M/mm3 (4.00-5.60) L 08/03/19 09:30 Hgb 8.9 GM/dL (11.7-16.9) L 08/03/19 09:30 Hct 28.8 % (35.4-49) L 08/03/19 09:30 MCV 78.1 fl (80-96) L 08/03/19 09:30 MCH 24.1 pg (25.7-33.7) L 08/03/19 09:30 MCHC 30.8 g/dl (32.0-35.9) L 08/03/19 09:30 RDW 21.1 % (11.9-15.9) H 08/03/19 09:30 Plt Count 358 K/MM3 (134-434) 08/03/19 09:30 MPV 7.6 fl (7.5-11.1) 08/03/19 09:30 Sodium 142 mmol/L (136-145) 08/03/19 09:30 Potassium 3.3 mmol/L (3.5-5.1) L 08/03/19 09:30 Chloride 106 mmol/L (98-107) 08/03/19 09:30 Carbon Dioxide 30 mmol/L (21-32) 08/03/19 09:30 Anion Gap 6 MMOL/L (8-16) L 08/03/19 09:30 BUN 7.2 mg/dL (7-18) 08/03/19 09:30 Creatinine 0.7 mg/dL (0.55-1.3) 08/03/19 09:30 Est GFR (CKD-EPI)AfAm 115.59 08/03/19 09:30 Est GFR (CKD-EPI)NonAf 99.73 08/03/19 09:30 Random Glucose 95 mg/dL (74-106) 08/03/19 09:30 Calcium 8.5 mg/dL (8.5-10.1) 08/03/19 09:30 Total Bilirubin 1.4 mg/dL (0.2-1) H 08/03/19 09:30 AST 35 U/L (15-37) 08/03/19 09:30 ALT 29 U/L (13-61) 08/03/19 09:30 Alkaline Phosphatase 107 U/L (45-117) 08/03/19 09:30 Total Protein 6.8 g/dl (6.4-8.2) 08/03/19 09:30 Albumin 3.2 g/dl (3.4-5.0) L 08/03/19 09:30 RPR Titer Nonreactive (NONREACTIVE) 08/03/19 09:30 Action: Potassium chloride (K-dur) 40meq tablet oral daily x 2 days ordered
[2019-08-04] MEDS: chlordiazePOXIDE HCL 25 MG CAPSULE PO SCH ×2 (06:37→10:24)
[2019-08-04 09:51] VITALS: BP 135/79; PULSE 95; TEMP 98.7
[2019-08-04] MEDS ORDERED: POTASSIUM CHLORIDE TABS 20 MEQ TABLET.ER (FP) PO ONE (10:00)
[2019-08-04] MEDS: PRENATAL VITAMINS W/ FOLIC ACID TABLET (FP) PO SCH (10:23)
--- NOTE | 2019-08-04 10:29 | PN ---
S CIWA - CIWA Score Nausea/Vomitin-Mild Nausea/No Vomiting Muscle Tremors: 3 Anxiety: 4-Mod. Anxious/Guarded Agitation: 1-Slight > Activity Paroxysmal Sweats: 2 Orientation: 0-Oriented Tacttile Disturbances: 0-None Auditory Disturbances: 0-None Visual Disturbances: 1-Very Mild Sensitivity Headache: 0-None Present CIWA-Ar Total Score: 12 S Progress Note (SOAP) Subjective: 64 years old male admitted on 08/03/19 for alcohol withdrawal sx management treating with librium detox regiment feeling ok today ambulating with wheelchair due to chronic back pain robaxin 500 mg po x 1 Objective: 08/04/19 11:01 Vital Signs Temperature 98.7 F 08/04/19 08:49 Pulse Rate 95 H 08/04/19 08:49 Respiratory Rate 20 08/04/19 08:49 Blood Pressure 135/79 08/04/19 08:49 O2 Sat by Pulse Oximetry (%) Laboratory Last Values WBC 8.5 K/mm3 (4.0-10.0) 08/03/19 09:30 RBC 3.69 M/mm3 (4.00-5.60) L 08/03/19 09:30 Hgb 8.9 GM/dL (11.7-16.9) L 08/03/19 09:30 Hct 28.8 % (35.4-49) L 08/03/19 09:30 MCV 78.1 fl (80-96) L 08/03/19 09:30 MCH 24.1 pg (25.7-33.7) L 08/03/19 09:30 MCHC 30.8 g/dl (32.0-35.9) L 08/03/19 09:30 RDW 21.1 % (11.9-15.9) H 08/03/19 09:30 Plt Count 358 K/MM3 (134-434) 08/03/19 09:30 MPV 7.6 fl (7.5-11.1) 08/03/19 09:30 Sodium 142 mmol/L (136-145) 08/03/19 09:30 Potassium 3.3 mmol/L (3.5-5.1) L 08/03/19 09:30 Chloride 106 mmol/L (98-107) 08/03/19 09:30 Carbon Dioxide 30 mmol/L (21-32) 08/03/19 09:30 Anion Gap 6 MMOL/L (8-16) L 08/03/19 09:30 BUN 7.2 mg/dL (7-18) 08/03/19 09:30 Creatinine 0.7 mg/dL (0.55-1.3) 08/03/19 09:30 Est GFR (CKD-EPI)AfAm 115.59 08/03/19 09:30 Est GFR (CKD-EPI)NonAf 99.73 08/03/19 09:30 Random Glucose 95 mg/dL (74-106) 08/03/19 09:30 Calcium 8.5 mg/dL (8.5-10.1) 08/03/19 09:30 Total Bilirubin 1.4 mg/dL (0.2-1) H 08/03/19 09:30 AST 35 U/L (15-37) 08/03/19 09:30 ALT 29 U/L (13-61) 08/03/19 09:30 Alkaline Phosphatase 107 U/L (45-117) 08/03/19 09:30 Total Protein 6.8 g/dl (6.4-8.2) 08/03/19 09:30 Albumin 3.2 g/dl (3.4-5.0) L 08/03/19 09:30 RPR Titer Nonreactive (NONREACTIVE) 08/03/19 09:30 lab noted 08/04/19 11:02 low K+ received potassium 40meq x 2 repeat K+ Assessment: 08/04/19 11:02 alcohol withdrawal Plan: librium regiment
[2019-08-04] MEDS ORDERED: METHOCARBAMOL 500 MG TABLET PO ONE (11:40)
--- NOTE | 2019-08-04 15:36 | DS ---
[facility] Detox Discharge Summary Admission Date: 08/03/19 Discharge Date: 08/04/19 - History Present History: Alcohol Dependence Additional Comments: 64 years old male admitted on 08/03/19 for alcohol withdrawal sx management treated with librium detox regiment Mr De Leon refuses K+ supplement "I have low K+ for the past six years" received 5 doses of librium 50 mg po today and one dose of robaxin feeling better ambulating steady gait on hallway without wheelchair "I can dance too" Mr De Leon is alert oriented x 3 no acute distress speech clearly coherently Mr De Leon hesitates behavior and psychosocial therapies groups and meetings cardiac s1s2 regular rate rhythm ekg indicated old septal infraction patient denies chest pain no shortness of breath no dizziness respiratory clear lungs bilaterally on auscultation extremities full range of motion mild 1/10 back pain Pertinent Past History: time for discharge 21 minutes - Physical Exam Results Vital Signs: Vital Signs Temperature 98.7 F 08/04/19 08:49 Pulse Rate 95 H 08/04/19 08:49 Respiratory Rate 20 08/04/19 08:49 Blood Pressure 135/79 08/04/19 08:49 O2 Sat by Pulse Oximetry (%) Pertinent Admission Physical Exam Findings: alcohol withdrawal Laboratory Last Values WBC 8.5 K/mm3 (4.0-10.0) 08/03/19 09:30 RBC 3.69 M/mm3 (4.00-5.60) L 08/03/19 09:30 Hgb 8.9 GM/dL (11.7-16.9) L 08/03/19 09:30 Hct 28.8 % (35.4-49) L 08/03/19 09:30 MCV 78.1 fl (80-96) L 08/03/19 09:30 MCH 24.1 pg (25.7-33.7) L 08/03/19 09:30 MCHC 30.8 g/dl (32.0-35.9) L 08/03/19 09:30 RDW 21.1 % (11.9-15.9) H 08/03/19 09:30 Plt Count 358 K/MM3 (134-434) 08/03/19 09:30 MPV 7.6 fl (7.5-11.1) 08/03/19 09:30 Sodium 142 mmol/L (136-145) 08/03/19 09:30 Potassium 3.3 mmol/L (3.5-5.1) L 08/03/19 09:30 Chloride 106 mmol/L (98-107) 08/03/19 09:30 Carbon Dioxide 30 mmol/L (21-32) 08/03/19 09:30 Anion Gap 6 MMOL/L (8-16) L 08/03/19 09:30 BUN 7.2 mg/dL (7-18) 08/03/19 09:30 Creatinine 0.7 mg/dL (0.55-1.3) 08/03/19 09:30 Est GFR (CKD-EPI)AfAm 115.59 08/03/19 09:30 Est GFR (CKD-EPI)NonAf 99.73 08/03/19 09:30 Random Glucose 95 mg/dL (74-106) 08/03/19 09:30 Calcium 8.5 mg/dL (8.5-10.1) 08/03/19 09:30 Total Bilirubin 1.4 mg/dL (0.2-1) H 08/03/19 09:30 AST 35 U/L (15-37) 08/03/19 09:30 ALT 29 U/L (13-61) 08/03/19 09:30 Alkaline Phosphatase 107 U/L (45-117) 08/03/19 09:30 Total Protein 6.8 g/dl (6.4-8.2) 08/03/19 09:30 Albumin 3.2 g/dl (3.4-5.0) L 08/03/19 09:30 RPR Titer Nonreactive (NONREACTIVE) 08/03/19 09:30 lab noted K+ low refuses K+ supplement patient will follow up with community health service - Treatment Hospital Course: Detox Protocol Followed, Detoxed Safely, Responded well, Discharged Condition Good, Rehab Referral Accepted Patient has Accepted a Rehab Referral to: community support approach - Medication Discharge Medications: Ambulatory Orders NK [No Known Home Medication] 07/23/19 - Diagnosis (1) Alcohol dependence with uncomplicated withdrawal Current Visit: Yes Status: Acute (2) GERD (gastroesophageal reflux disease) Current Visit: Yes Status: Chronic Qualifiers: Esophagitis presence: without esophagitis Qualified Code(s): K21.9 - Gastro -esophageal reflux disease without esophagitis (3) HTN (hypertension) Current Visit: Yes Status: Chronic Qualifiers: Hypertension type: essential hypertension Qualified Code(s): I10 - Essential (primary) hypertension (4) Hypokalemia Current Visit: Yes Status: Chronic (5) Obesity (BMI 30-39.9) Current Visit: Yes Status: Chronic - AMA Did Patient Leave Against Medical Advice: No CIWA Score - CIWA Score Nausea/Vomitin-No Nausea/No Vomiting Muscle Tremors: 2 Anxiety: 3 Agitation: 1-Slight > Activity Paroxysmal Sweats: 2 Orientation: 0-Oriented Tacttile Disturbances: 0-None Auditory Disturbances: 0-None Visual Disturbances: 1-Very Mild Sensitivity Headache: 0-None Present CIWA-Ar Total Score: 9
[2019-08-05] MEDS ORDERED: chlordiazePOXIDE HCL 25 MG CAPSULE PO SCH (05:00)
[2019-08-06] MEDS ORDERED: chlordiazePOXIDE HCL 10 MG CAPSULE PO PRN
[2019-08-06] MEDS ORDERED: chlordiazePOXIDE HCL 10 MG CAPSULE PO SCH (05:00)
[2019-08-07] MEDS ORDERED: chlordiazePOXIDE HCL 10 MG CAPSULE PO SCH (05:00)
[2019-08-08] MEDS ORDERED: chlordiazePOXIDE HCL 10 MG CAPSULE PO ONE (05:00)
== END 2019-08-04 16:10 | disposition home or self-care (01) | DRG 775 ==
LOC: YASAS 08:51 → Y3N 09:22
PROVIDERS: ADMIT Allergy & Immunology; ATTEND Allergy & Immunology
PROC: HZ2ZZZZ Detoxification Services for Substance Abuse Treatment (ICD-10-PCS; principal; 2019-08-03)
DX: F10.230 Alcohol dependence with withdrawal, uncomplicated (principal); I10 Essential (primary) hypertension; E87.6 Hypokalemia; K21.9 Gastro-esophageal reflux disease without esophagitis; C45.9 Mesothelioma, unspecified; M54.5 Low back pain; G89.29 Other chronic pain; E66.9 Obesity, unspecified; Z68.33 Body mass index [BMI] 33.0-33.9, adult; Z91.013 Allergy to seafood
CPT/HCPCS: 36415; 80053; 85027; 86593

== ENCOUNTER 2019-08-04 22:01 | Emergency (ER) | payer OTHER ==
[2019-08-04 22:05] VITALS: BMI 36.6
--- NOTE | 2019-08-05 02:45 | PDOC ---
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 Pt denies fall, head trauma, headache, chest pain, SOB. Past History - Past Medical History Allergies/Adverse Reactions: Allergies Allergy/AdvReac Type Severity Reaction Status Date / Time Fish Containing Products Allergy Mild Swelling Verified 08/04/19 22:05 No Known Drug Allergies Allergy Verified 08/04/19 22:05 Home Medications: Ambulatory Orders NK [No Known Home Medication] 07/23/19 Anemia: No Asthma: No Cancer: Yes (mesothelioma lung cancer) Cardiac Disorders: No CVA: No COPD: No CHF: No DVT: No Dementia: No Diabetes: No Dialysis: No GI Disorders: No Disorders: No HTN: Yes (non compliant with meds.) Hypercholesterolemia: Yes Kidney Stones: No Liver Disease: Yes (ETOH abuse) Psychiatric Problems: Yes (ETOH abuse) Seizures: No Thyroid Disease: No Lung CA: Yes (Mesothelioma) - Surgical History Abdominal Surgery: No Appendectomy: No Cardiac Surgery: No Cholecystectomy: No Lung Surgery: No Neurologic Surgery: No Orthopedic Surgery: No - Reproductive History Testicular Surgery: No - Immunization History Td Vaccination: Yes TDAP Vaccination: Yes Immunization Up to Date: Yes - Psycho Social/Smoking Cessation Hx Smoking Status: No Smoking History: Former smoker Have you smoked in the past 12 months: No Number of Cigarettes Smoked Daily: 0 If you are a former smoker, when did you quit?: 0 Cigars Per Day: 0 Information on smoking cessation initiated: No 'Breaking Loose' booklet given: 09/22/17 Hx Alcohol Use: Yes Drug/Substance Use Hx: No Substance Use Type: Alcohol Hx Substance Use Treatment: Yes Review of Systems - Review of Systems Constitutional: No: Chills, Fever HEENTM: No: Eye Pain, Nose Pain Respiratory: No: Cough, Shortness of Breath Cardiac (ROS): No: Chest Pain, Palpitations ABD/GI: No: Abdominal Distended, Constipated, Diarrhea : No: Burning, Dysuria Musculoskeletal: No: Back Pain, Joint Pain Integumentary: No: Bruising, Flushing Neurological: No: Headache, Seizure Psychiatric: No: Anxiety, Depression Endocrine: No: Intolerance to Cold, Intolerance to Heat Hematologic/Lymphatic: No: Anemia, Blood Clots *Physical Exam - Vital Signs Last Vital Signs Temp Pulse Resp BP Pulse Ox 98.2 F 91 H 18 106/61 95 08/04/19 22:02 08/04/19 22:02 08/04/19 22:02 08/04/19 22:02 08/04/19 22:02 - Physical Exam General Appearance: Yes: Nourished, Appropriately Dressed. No: Apparent Distress HEENT: positive: EOMI, DOUGLAS, Normal Voice. negative: Scleral Icterus (R), Scleral Icterus (L) Respiratory/Chest: positive: Lungs Clear, Normal Breath Sounds. negative: Chest Tender, Respiratory Distress Cardiovascular: positive: Regular Rhythm, Regular Rate, S1, S2. negative: Edema , Murmur Gastrointestinal/Abdominal: positive: Normal Bowel Sounds, Flat, Soft. negative : Tender, Organomegaly Extremity: positive: Delayed Capillary Refill Integumentary: positive: Normal Color, Dry Neurologic: positive: product safety professional II-XII NML intact, Fully Oriented, Alert, Normal Response, Responsive. 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 No concern for ACS (no chest pain) vs PNA (clear lungs) vs withdrawal (no tremors) Gave PO fluids DC Discharge - Discharge Information Problems reviewed: Yes Clinical Impression/Diagnosis: Alcohol intoxication Qualifiers: Complication of substance-induced condition: uncomplicated Qualified Code(s): F10.920 - Alcohol use, unspecified with intoxication, uncomplicated Condition: Good - Follow up/Referral - Patient Discharge Instructions - Post Discharge Activity
--- NOTE | 2019-08-05 04:23 | PDOC ---
Attending Attestation - Resident Resident Name: Bob Green - ED Attending Attestation I have performed the following: I have examined & evaluated the patient, The case was reviewed & discussed with the resident, I agree w/resident's findings & plan, Exceptions are as noted - HPI HPI: 08/11/19 22:20 See resident HPI - Physicial Exam PE: 08/11/19 22:20 Agree with exam as documented - Medical Decision Making 08/11/19 22:20 64M well known to this ED, presents acutely intoxicated, no changes in chronic issues, no acute complaints besides intox PO fluid, observe dc
[2019-08-05 06:10] VITALS: BP 111/65; PULSE 87
[2019-08-05 06:13] VITALS: TEMP 98.1
== END 2019-08-05 06:23 | disposition home or self-care (01) ==
LOC: JER 22:01
DX: F10.220 Alcohol dependence with intoxication, uncomplicated (principal); I10 Essential (primary) hypertension; C45.9 Mesothelioma, unspecified; M54.5 Low back pain; G89.29 Other chronic pain; E78.5 Hyperlipidemia, unspecified; Z91.013 Allergy to seafood; Z59.0 Homelessness
CPT/HCPCS: 99283-25

== ENCOUNTER 2019-08-06 00:47 | Emergency (ER) | payer OTHER ==
[2019-08-06 01:07] VITALS: TEMP 97.6; BMI 27.1
[2019-08-06 05:29] VITALS: BP 110/60; PULSE 90
--- NOTE | 2019-08-06 06:18 | PDOC ---
History of Present Illness - History of Present Illness Initial Comments: 08/06/19 06:13 64 y/o male with a PMHx of history of HTN (non-compliant with meds), Mesothelioma, and ETOH abuse initially here with back and neck pain, but states pain resolved and now wants to sleep and have a sandwich. Denies any trauma, numbness/tingling, difficulty ambulating, syncope, chest pain, shortness of breath. Last ETOH intake was 3 three days previous. <Ligia Wilson - Last Filed: 08/06/19 06:27> <Lorri Kumar - Last Filed: 08/07/19 22:23> - General Chief Complaint: Alcohol intoxication Stated Complaint: INTOX Past History - Past Medical History Anemia: No Asthma: No Cancer: Yes (mesothelioma lung cancer) Cardiac Disorders: No CVA: No COPD: No CHF: No DVT: No Dementia: No Diabetes: No Dialysis: No GI Disorders: No Disorders: No HTN: Yes (non compliant with meds.) Hypercholesterolemia: Yes Kidney Stones: No Liver Disease: Yes (ETOH abuse) Psychiatric Problems: Yes (ETOH abuse) Seizures: No Thyroid Disease: No Lung CA: Yes (Mesothelioma) - Surgical History Abdominal Surgery: No Appendectomy: No Cardiac Surgery: No Cholecystectomy: No Lung Surgery: No Neurologic Surgery: No Orthopedic Surgery: No - Reproductive History Testicular Surgery: No - Immunization History Td Vaccination: Yes TDAP Vaccination: Yes Immunization Up to Date: Yes - Psycho Social/Smoking Cessation Hx Smoking Status: No Smoking History: Unknown if ever smoked Have you smoked in the past 12 months: No Number of Cigarettes Smoked Daily: 0 If you are a former smoker, when did you quit?: 0 Cigars Per Day: 0 Information on smoking cessation initiated: No 'Breaking Loose' booklet given: 09/22/17 Hx Alcohol Use: No Drug/Substance Use Hx: No Substance Use Type: Alcohol Hx Substance Use Treatment: Yes <Ligia Wilson - Last Filed: 08/06/19 06:27> <Lorri Kumar - Last Filed: 08/07/19 22:23> - Past Medical History Allergies/Adverse Reactions: Allergies Allergy/AdvReac Type Severity Reaction Status Date / Time Fish Containing Products Allergy Mild Swelling Verified 08/06/19 01:05 No Known Drug Allergies Allergy Verified 08/06/19 01:05 Home Medications: Ambulatory Orders NK [No Known Home Medication] 07/23/19 Review of Systems - Review of Systems Constitutional: No: Fever Respiratory: No: Shortness of Breath Cardiac (ROS): No: Lightheadedness, Palpitations ABD/GI: No: Constipated, Diarrhea, Nausea, Vomiting <Ligia Wilson - Last Filed: 08/06/19 06:27> *Physical Exam - Vital Signs Last Vital Signs Temp Pulse Resp BP Pulse Ox 97.6 F 90 17 110/60 94 L 08/06/19 01:05 08/06/19 05:28 08/06/19 05:28 08/06/19 05:28 08/06/19 05:28 - Physical Exam General Appearance: Yes: Nourished, Obese HEENT: positive: Hearing Grossly Normal Neck: positive: Supple Respiratory/Chest: positive: Lungs Clear, Normal Breath Sounds Cardiovascular: positive: S1, S2 Gastrointestinal/Abdominal: positive: Normal Bowel Sounds, Soft Extremity: positive: Normal Inspection Integumentary: positive: Normal Color, Dry, Warm Neurologic: positive: Alert, Responsive. negative: Confused <Ligia Wilson - Last Filed: 08/06/19 06:27> - Vital Signs Last Vital Signs Temp Pulse Resp BP Pulse Ox 97.6 F 90 17 110/60 94 L 08/06/19 01:05 08/06/19 05:28 08/06/19 05:28 08/06/19 05:28 08/06/19 05:28 <Lorri Kumar - Last Filed: 08/07/19 22:23> Medical Decision Making - Medical Decision Making 08/06/19 06:16 64 y/o male with history of HTN (non-compliant with meds), Mesothelioma, and ETOH abuse c/o resolved neck and back pain. VS unremarkable No focal neurologic deficit on exam. Will give food and discharge home. <Ligia Wilson - Last Filed: 08/06/19 06:27> Discharge - Discharge Information Problems reviewed: Yes <Ligia Wilson - Last Filed: 08/06/19 06:27> <Lorri Kumar - Last Filed: 08/07/19 22:23> - Discharge Information Clinical Impression/Diagnosis: Alcohol intoxication Condition: Fair Disposition: HOME - Patient Discharge Instructions Additional Instructions: Return to the Emergency Department for any new/worsening/concerning symptoms.
--- NOTE | 2019-08-06 06:42 | PDOC ---
Attending Attestation - Resident Resident Name: Ligia Wilson - ED Attending Attestation I have performed the following: I have examined & evaluated the patient, The case was reviewed & discussed with the resident, I agree w/resident's findings & plan - HPI HPI: 08/07/19 22:23 64 y/o male with a PMHx of history of HTN (non-compliant with meds), Mesothelioma, and ETOH abuse initially here with back and neck pain, but states pain resolved and now wants to sleep and have a sandwich. Denies any trauma, numbness/tingling, difficulty ambulating, syncope, chest pain, shortness of breath. Last ETOH intake was 3 three days previous. - Physicial Exam PE: 08/07/19 22:25 Agree with resident exam - Medical Decision Making 08/07/19 22:26 Pt will be allowed to sit in the ER til AM; then he will be discharged at sunrise.
== END 2019-08-06 06:51 | disposition home or self-care (01) ==
LOC: JER 00:47
DX: F10.220 Alcohol dependence with intoxication, uncomplicated (principal); I10 Essential (primary) hypertension; C45.9 Mesothelioma, unspecified; M54.5 Low back pain; G89.29 Other chronic pain; Z91.013 Allergy to seafood; Z59.0 Homelessness; Z91.14 Patient's other noncompliance with medication regimen
CPT/HCPCS: 99283-25

== ENCOUNTER 2019-08-13 14:52 | Inpatient (IN) | payer OTHER ==
--- NOTE | 2019-08-13 15:48 | PDOC ---
History of Present Illness - General Chief Complaint: Alcohol intoxication Stated Complaint: FALL Time Seen by Provider: 08/13/19 15:47 Past History - Past Medical History Allergies/Adverse Reactions: Allergies Allergy/AdvReac Type Severity Reaction Status Date / Time Fish Containing Products Allergy Mild Swelling Verified 08/06/19 01:05 No Known Drug Allergies Allergy Verified 08/06/19 01:05 Home Medications: Ambulatory Orders NK [No Known Home Medication] 07/23/19 Anemia: No Asthma: No Cancer: Yes (mesothelioma lung cancer) Cardiac Disorders: No CVA: No COPD: No CHF: No DVT: No Dementia: No Diabetes: No Dialysis: No GI Disorders: No Disorders: No HTN: Yes (non compliant with meds.) Hypercholesterolemia: Yes Kidney Stones: No Liver Disease: Yes (ETOH abuse) Psychiatric Problems: Yes (ETOH abuse) Seizures: No Thyroid Disease: No Lung CA: Yes (Mesothelioma) - Surgical History Abdominal Surgery: No Appendectomy: No Cardiac Surgery: No Cholecystectomy: No Lung Surgery: No Neurologic Surgery: No Orthopedic Surgery: No - Reproductive History Testicular Surgery: No - Immunization History Td Vaccination: Yes TDAP Vaccination: Yes Immunization Up to Date: Yes - Psycho Social/Smoking Cessation Hx Smoking Status: No Smoking History: Never smoked Have you smoked in the past 12 months: No Number of Cigarettes Smoked Daily: 0 If you are a former smoker, when did you quit?: 0 Cigars Per Day: 0 Information on smoking cessation initiated: No 'Breaking Loose' booklet given: 09/22/17 Hx Alcohol Use: Yes Drug/Substance Use Hx: No Substance Use Type: Alcohol Hx Substance Use Treatment: Yes *Physical Exam - Vital Signs Last Vital Signs Temp Pulse Resp BP Pulse Ox 97.5 F L 88 18 112/72 95 08/13/19 15:02 08/13/19 15:02 08/13/19 15:02 08/13/19 15:02 08/13/19 15:02 08/13/19 15:48 64 y/o male PMH HTN (non-adherent with meds), mesothelioma, and etoh abuse c/o being intoxicated and hitting his head. Pt reports he was [place] alcohol in the park, lost balance, fell backwards, and hit his head. No LOC, tongue biting, tremor, aura. He reports no GARCIA, no blurry vision, no other vision changes, no numbn ess/tingling, no bowel/bladder incontinence. REVIEW OF SYSTEMS CONSTITUTIONAL: Absent: fever, chills, diaphoresis, generalized weakness, malaise, loss of appetite, weight change HEENT: Absent: rhinorrhea, nasal congestion, throat pain, throat swelling, difficulty swallowing, mouth swelling, ear pain, eye pain, visual changes CARDIOVASCULAR: Absent: chest pain, syncope, palpitations, irregular heart rate, lightheadedness, peripheral edema RESPIRATORY: Absent: cough, shortness of breath, dyspnea with exertion, orthopnea, wheezing, stridor, hemoptysis GASTROINTESTINAL: Absent: abdominal pain, abdominal distension, nausea, vomiting, diarrhea, constipation, melena, hematochezia GENITOURINARY: Absent: dysuria, frequency, urgency, hesitancy, hematuria, flank pain, genital pain MUSCULOSKELETAL: Absent: myalgia, arthralgia, joint swelling, back pain, neck pain SKIN: Absent: rash, itching, pallor HEMATOLOGIC/IMMUNOLOGIC: Absent: easy bleeding, easy bruising, lymphadenopathy, frequent infections ENDOCRINE: Absent: unexplained weight gain, unexplained weight loss, heat intolerance, cold intolerance NEUROLOGIC: Absent: headache, focal weakness or paresthesias, dizziness, unsteady gait, seizure, mental status changes, bladder or bowel incontinence PSYCHIATRIC: Absent: anxiety, depression, suicidal or homicidal ideation, hallucinations. GENERAL: AO x3 NAD HEAD: NC with 1 cm abrasion on RIGHT occiput, no active bleeding, no laceration EYES: CAMILLE, EOMI, sclera anicteric, conjunctiva clear. No ptosis. ENT: Ears normal, nares patent, oropharynx clear without exudates, dry mucous membranes. NECK: Trachea midline, full range of motion, supple. LUNGS: CTAB , no wheezes, no crackles, no accessory muscle use. HEART: RRR, S1, S2 without murmur, rub or gallop. ABDOMEN: Soft, nontender, nondistended, normoactive bowel sounds, no guarding, no rebound, no hepatosplenomegaly, no masses. EXTREMITIES: 2+ pulses, warm, well-perfused, no edema. NEUROLOGICAL: Cranial nerves II through XII grossly intact. Slurred speech, gait not observed, not participating in FTN PSYCH: Normal mood, normal affect. SKIN: Warm, dry, normal turgor, no rashes or lesions noted A/P # Mechanical fall, acute etoh intoxication - Clean and dress lesion/abrasion - Serial observation till sobriety is achieved - CT head, C-spine 08/13/19 17:12 08/13/19 18:40 ED Treatment Course - LABORATORY CBC & Chemistry Diagram: 08/14/19 08:15 08/14/19 07:55 Discharge - Discharge Information Problems reviewed: Yes Clinical Impression/Diagnosis: Intoxication - Follow up/Referral Referrals: Lily Cornejo [Primary Care Provider] - - Patient Discharge Instructions Patient Printed Discharge Instructions: DI for Alcohol Abuse Additional Instructions: Please follow up with your primary care doctor if you are interested in assistance with your alcohol use. If you experience any new, worsening, or concerning symptoms, please return to the emergency department. - Post Discharge Activity
--- NOTE | 2019-08-13 16:25 | PDOC ---
Documentation entered by Smith Douglas SCRIBE, acting as scribe for Palmer Stone MD. Palmer Stone MD: This documentation has been prepared by the Misael pereira Daniel, SCRIBE, under my direction and personally reviewed by me in its entirety. I confirm that the documentation accurately reflects all work, treatment, procedures, and medical decision making performed by me. Attending Attestation - Resident Resident Name: Thuan Delgado - ED Attending Attestation I have performed the following: I have examined & evaluated the patient, The case was reviewed & discussed with the resident, I agree w/resident's findings & plan, Exceptions are as noted - HPI HPI: 08/13/19 15:54 The patient is a 64 year old male with a past medical history of HTN, mesothelioma, and alcohol abuse here today for evaluation s/p fall. The patient reports that he was drinking today and was walking when he tripped and fell backwards hitting his head without loss of consciousness. He denies any complaints currently. Allergies: NKDA - Physicial Exam PE: 08/13/19 16:24 Vitals: Triage Vital signs reviewed General Appearance: No acute distress, well nourished well developed, Head: Abrasion with hematoma to occiput will need to be cleaned Eyes: Pupils equal reactive round, extraocular movement intact Neck: Supple; no Nucal rigidity Chest Wall: Nontender Cardiac: Regular rate and rhythym, no murmurs, no rubs, no gallops, Lungs: Clear to auscultation bilateral, good air movement bilaterally, Abdomen: Soft, non distended, normal bowel sounds, non tender to palpation Extremities: Full range of motion to all extremities, no cyanosis, clubbing, or edema Neuro: Moving all extremities Psych: Normal mood, normal affect - Medical Decision Making 08/13/19 16:24 64 years old well-known to ED staff status post alcohol intoxication complicated by fall with resulting head trauma patient currently on head CT Will observe and reassess Dr. Lugo to follow up CT, reasses and dispo
--- NOTE | 2019-08-13 19:17 | PDOC ---
*Physical Exam - Vital Signs Last Vital Signs Temp Pulse Resp BP Pulse Ox 97.5 F L 88 18 112/72 95 08/13/19 15:02 08/13/19 15:02 08/13/19 15:02 08/13/19 15:02 08/13/19 15:02 ED Treatment Course - LABORATORY CBC & Chemistry Diagram: 08/14/19 08:15 08/14/19 07:55 Medical Decision Making - Medical Decision Making 08/13/19 19:14 Pt received on sign out from Dr. Delgado. CT head/neck negative. Will reassess and d/c home when clinically sober. 08/13/19 05:00 Pt reassessed. Complaining of mild right flank pain that started an hour ago when he woke up. Mild TTP with delayed, voluntary guarding. No rebound. No nausea/vomiting. Pt given motrin for pain. 08/14/19 07:00 Pt signed out to Dr. Delgado for PO challenge and clinical reassessment. Discharge - Discharge Information Problems reviewed: Yes Clinical Impression/Diagnosis: Intoxication, Alcohol dependence with uncomplicated withdrawal, Hypomagnesemia, Pleural effusion, Chest pain, Abdominal pain Condition: Fair - Follow up/Referral - Patient Discharge Instructions - Post Discharge Activity
[2019-08-14] MEDS ORDERED: IBUPROFEN 600 MG TABLET (FP) PO ONE ×2 (04:31→04:41)
--- NOTE | 2019-08-14 07:18 | PDOC ---
*Physical Exam - Vital Signs Last Vital Signs Temp Pulse Resp BP Pulse Ox 98.0 F 89 18 171/96 H 94 L 08/14/19 06:49 08/14/19 06:49 08/14/19 06:49 08/14/19 06:49 08/14/19 06:49 - Physical Exam 08/14/19 08:08 Gen: awake, not intoxicated, ambulatory in the ER abd: soft, RUQ and RLQ ttp, no rebound or guarding ext: 2+ pitting edema to LE Heart Score/ECG Review - ECG Intrepretation Comment:: 08/14/19 10:40 sinus at 84, q waves anteroseptally which are age indeterminate, no acute st/t wave findings ED Treatment Course - LABORATORY CBC & Chemistry Diagram: 08/14/19 08:15 08/14/19 07:55 - Medications Given in the ED: ED Medications Discontinued Medications Generic Name Dose Route Start Last Admin Trade Name Freq PRN Reason Stop Dose Admin Ibuprofen 600 mg 08/14/19 04:31 08/14/19 04:46 Motrin - PO 08/14/19 04:32 600 mg ONCE ONE Administration Medical Decision Making - Medical Decision Making 08/14/19 08:09 a/p: 64yo male with abd pain -hx of etoh abuse -R sided pain -will send labs, ct abd/pelvis -pt is currently not intoxicated, but also not in withdrawal -will monitor and reassess -pt agreeable to labs and ct imaging 08/14/19 09:21 labs reviewed anemia low mag will replace mag pt pending ct 08/14/19 10:20 pt states he still has pain no acute findings on ct abd/pelvis pt receiving ivf, suspect cause of abd distension hypomag cp - will add trop pt will need obs placement for cp/abd pain pt also with mild etoh withdrawal - will start librium will microblog symphony 08/14/19 10:59 pt has urinated 320cc urine ua sent 08/14/19 13:[address] Rachel who accepts pt to service Discharge - Discharge Information Problems reviewed: Yes Clinical Impression/Diagnosis: Intoxication, Alcohol dependence with uncomplicated withdrawal, Hypomagnesemia , Pleural effusion, Chest pain, Abdominal pain Condition: Fair - Admission Yes - Follow up/Referral Referrals: Lily Cornejo [Primary Care Provider] - - Patient Discharge Instructions Patient Printed Discharge Instructions: DI for Alcohol Abuse Additional Instructions: Please follow up with your primary care doctor if you are interested in assistance with your alcohol use. If you experience any new, worsening, or concerning symptoms, please return to the emergency department. - Post Discharge Activity
--- NOTE | 2019-08-14 08:13 | PDOC ---
*Physical Exam - Vital Signs Last Vital Signs Temp Pulse Resp BP Pulse Ox 98.0 F 89 18 171/96 H 94 L 08/14/19 06:49 08/14/19 06:49 08/14/19 06:49 08/14/19 06:49 08/14/19 06:49 08/14/19 08:08 Received hand off from Dr. Payton that pt has been experiencing new abdominal pain. Serial observation to achieve sobriety still in progress. Pt states that progressively over the night hours he started experiencing LUQ and LLQ pain. The pain is dull/aching in character, non-radiating, and relieved when he urinated. He has not passed stool since yesterday AM. He denies SOB and CP. Focused PE Significant VS: elevated BP and o2 94% on RA Abdomen: - Obese, soft, non-distended, non-rigid, nl bs in 4 quadrants, no guarding, no rigidity, NEG P[place]on, NEG point tenderness at McBurney's point + TTP LUQ, LLQ Plan: CBC, CMP, lipase, Mg, UA Ibuprofen CT a/p 08/14/19 10:05 CT demonstrates bladder distension 08/14/19 13:34 Pt endorsed to admitting team for admission to med-surg ED Treatment Course - LABORATORY CBC & Chemistry Diagram: 08/14/19 08:15 08/15/19 09:05 - Medications Given in the ED: ED Medications Discontinued Medications Generic Name Dose Route Start Last Admin Trade Name Freq PRN Reason Stop Dose Admin Ibuprofen 600 mg 08/14/19 04:31 08/14/19 04:46 Motrin - PO 08/14/19 04:32 600 mg ONCE ONE Administration Discharge - Discharge Information Problems reviewed: Yes Clinical Impression/Diagnosis: Intoxication, Alcohol dependence with uncomplicated withdrawal, Hypomagnesemia , Pleural effusion Chest pain Qualifiers: Chest pain type: unspecified Qualified Code(s): R07.9 - Chest pain, unspecified Abdominal pain Qualifiers: Abdominal location: generalized Qualified Code(s): R10.84 - Generalized abdominal pain Condition: Guarded Disposition: AGAINST MEDICAL ADVICE - Follow up/Referral - Patient Discharge Instructions - Post Discharge Activity
[2019-08-14 08:43] LABS: BASO % 0.7 % (0-2.0); EOS % 2.9 % (0-4.5); HEMATOCRIT 29.7 % (35.4-49); HEMOGLOBIN 9.3 GM/dL (11.7-16.9); MCH 24.3 pg (25.7-33.7); MCHC 31.2 g/dl (32.0-35.9); MEAN CELL VOLUME 77.9 fl (80-96); MEAN PLT VOLUME 7.9 fl (7.5-11.1); MONO % 5.9 % (3.8-10.2); NEUT % 69.5 % (42.8-82.8); PLATELET COUNT 245 K/MM3 (134-434); RBC 3.81 M/mm3 (4.00-5.60); RDW 21.3 % (11.9-15.9); WHITE BLOOD COUNT 6.5 K/mm3 (4.0-10.0)
[2019-08-14 09:11] LABS: ALBUMIN 2.9 g/dl (3.4-5.0); ALK PHOS 103 U/L (45-117); ANION GAP 7 MMOL/L (8-16); BLOOD UREA NITROGEN 4.9 mg/dL (7-18); CALCIUM 8.4 mg/dL (8.5-10.1); CHLORIDE 105 mmol/L (98-107); CO2 30 mmol/L (21-32); CREATININE 0.6 mg/dL (0.55-1.3); GLUCOSE,RANDOM 88 mg/dL (74-106); LIPASE 50 U/L (73-393); MAGNESIUM 1.3 mg/dL (1.8-2.4); SGOT/AST 68 U/L (15-37); SGPT/ALT 28 U/L (13-61); SODIUM 142 mmol/L (136-145); TOT PROT 6.4 g/dl (6.4-8.2)
[2019-08-14] MEDS ORDERED: MAGNESIUM SULF 50% (8.12 MEQ/2 ML-1 GM VIAL) IVPB ONE ×2 (09:19→09:22)
[2019-08-14] MEDS ORDERED: MAGNESIUM 1GM/D5W - 2 GM/200 ML IVPB IVPB ONE (09:45)
[2019-08-14] MEDS ORDERED: FOLIC ACID 1 MG TABLET (FP) PO ONE (09:49)
[2019-08-14] MEDS ORDERED: chlordiazePOXIDE HCL 25 MG CAPSULE PO ONE (09:49)
[2019-08-14] MEDS ORDERED: MULTIVITAMINS (DAILY MVI) TABLET (FP) PO ONE (09:49)
[2019-08-14] MEDS ORDERED: THIAMINE HCL 100 MG TABLET (FP) PO ONE (09:49)
[2019-08-14 10:10] LABS: ANISOCYTOSIS 1+; MACROCYTOSIS 0; OVALOCYTE 1+; PLATELET ESTIMATE NORMAL; TEAR DROP CELLS 1+
[2019-08-14] MEDS ORDERED: FOLIC ACID INJECTION - 1 MG, THIAMINE HCL 100 MG, MULTIVIT INJECTION ADULT 10 ML in SOD... IVPB ONE (10:56)
[2019-08-14] MEDS ORDERED: chlordiazePOXIDE HCL 25 MG CAPSULE ONE (10:59)
[2019-08-14 11:33] LABS: PHOSPHOROUS 2.8 mg/dL (2.5-4.9)
[2019-08-14 11:35] LABS: URINE APPEARANCE CLEAR; URINE BILIRUBIN NEGATIVE (NEGATIVE); URINE COLOR YELLOW; URINE GLUCOSE (UA) NEGATIVE (NEGATIVE); URINE KETONE NEGATIVE (NEGATIVE); URINE LEUK ESTERASE NEGATIVE (NEGATIVE); URINE NITRITE NEGATIVE (NEGATIVE); URINE PROTEIN NEGATIVE (NEGATIVE); URINE UROBILINOGEN 0.2 mg/dL (0.2-1.0)
[2019-08-14] MEDS ORDERED: KETOROLAC TROMETHAMINE 15 MG/ML VIAL IVPUSH ONE (13:11)
[2019-08-14] MEDS ORDERED: KETOROLAC TROMETHAMINE 15 MG/ML VIAL ONE (13:54)
--- NOTE | 2019-08-14 14:15 | HP ---
CHIEF COMPLAINT: PCP: HISTORY OF PRESENT ILLNESS: 64 yo M PMH of EtOH abuse, mesothelioma, HTN, COPD, chronic back pain presented s/p fall 2/2 alcohol intoxication. As per pt, he did hit his head and cannot remember the events, he is a poor historian. Pt states that he always has alot of pain everywhere, including his abdomen. he states today his main problem is the back pain. Denies f/c/n/v/d/sob,cp ER course was notable for: (1)CT head: negative (2) (3) PAST MEDICAL HISTORY: see HPI PAST SURGICAL HISTORY: unable to obtain Social History: Smoking:prior hx Alcohol:drinks 2 Pints vodka daily Drugs: denies Allergies Fish Containing Products Allergy (Mild, Verified 08/06/19 01:05) Swelling No Known Drug Allergies Allergy (Verified 08/06/19 01:05) HOME MEDICATIONS: Home Medications Medication Instructions Recorded NK [No Known Home Medication] 07/23/19 REVIEW OF SYSTEMS CONSTITUTIONAL: Absent: fever, chills, diaphoresis, generalized weakness, malaise, loss of appetite, weight change HEENT: Absent: rhinorrhea, nasal congestion, throat pain, throat swelling, difficulty swallowing, mouth swelling, ear pain, eye pain, visual changes CARDIOVASCULAR: Absent: chest pain, syncope, palpitations, irregular heart rate, lightheadedness , peripheral edema RESPIRATORY: Present: cough Absent: shortness of breath, dyspnea with exertion, orthopnea, wheezing, stridor, hemoptysis GASTROINTESTINAL: Present: abdominal pain Absent:abdominal distension, nausea, vomiting, diarrhea, constipation, melena, hematochezia GENITOURINARY: Absent: dysuria, frequency, urgency, hesitancy, hematuria, flank pain, genital pain MUSCULOSKELETAL: Present: back pain Absent: myalgia, arthralgia, joint swelling,neck pain SKIN: Absent: rash, itching, pallor HEMATOLOGIC/IMMUNOLOGIC: Absent: easy bleeding, easy bruising, lymphadenopathy, frequent infections ENDOCRINE: Absent: unexplained weight gain, unexplained weight loss, heat intolerance, cold intolerance NEUROLOGIC: Absent: headache, focal weakness or paresthesias, dizziness, unsteady gait, seizure, mental status changes, bladder or bowel incontinence PHYSICAL EXAMINATION Vital Signs - 24 hr 08/13/19 08/14/19 08/14/19 15:02 00:00 06:49 Temperature 97.5 F L 98.0 F Pulse Rate 88 Pulse Rate [ 89 89 Left Radial] Respiratory 18 20 18 Rate Blood Pressure 112/72 Blood Pressure 140/91 171/96 H [Left Arm] O2 Sat by Pulse 95 92 L 94 L Oximetry (%) 08/14/19 08/14/19 13:00 13:40 Temperature 98.3 F Pulse Rate Pulse Rate [ 88 88 Left Radial] Respiratory 20 18 Rate Blood Pressure Blood Pressure 156/102 H 157/103 H [Left Arm] O2 Sat by Pulse 97 96 Oximetry (%) GENERAL: Awake, alert, and fully oriented, in no acute distress. HEAD: Normal with no signs of trauma. scalp laceration on occipital region , no active bleeding EARS, NOSE, THROAT: oropharynx clear without exudates. Moist mucous membranes. LUNGS: Breath sounds equal, clear to auscultation bilaterally.No accessory muscle use. HEART: Regular rate and rhythm, normal S1 and S2 ABDOMEN: Soft, nontender, not distended, normoactive bowel sounds, no guarding MUSCULOSKELETAL: No CVA tenderness. no spinal or paraspinal tenderness to palpation UPPER EXTREMITIES: 2+ pulses, warm, well-perfused. No cyanosis. No clubbing. No peripheral edema. LOWER EXTREMITIES: 2+ pulses, warm, well-perfused. No calf tenderness. 2+ pitting edema, erythema b/l Laboratory Results - last 24 hr 08/14/19 08/14/19 08/14/19 07:55 08:15 09:00 WBC 6.5 RBC 3.81 L Hgb 9.3 L Hct 29.7 L MCV 77.9 L MCH 24.3 L MCHC 31.2 L RDW 21.3 H Plt Count 245 D MPV 7.9 Absolute Neuts (auto) 4.5 Neutrophils % 69.5 Lymphocytes % 21.0 D Monocytes % 5.9 Eosinophils % 2.9 D Basophils % 0.7 D Nucleated RBC % 0 Hypochromia 1+ Platelet Estimate Normal Polychromasia 1+ Poikilocytosis 1+ Anisocytosis 1+ Microcytosis 1+ Macrocytosis 0 Tear Drop Cells 1+ Ovalocytes 1+ Stomatocytes 1+ Sodium 142 Potassium 4.0 Chloride 105 Carbon Dioxide 30 Anion Gap 7 L BUN 4.9 L Creatinine 0.6 Est GFR (CKD-EPI)AfAm 123.15 Est GFR (CKD-EPI)NonAf 106.25 Random Glucose 88 Calcium 8.4 L Phosphorus 2.8 Magnesium 1.3 L Total Bilirubin 1.0 AST 68 H ALT 28 Alkaline Phosphatase 103 Creatine Kinase 174 Creatine Kinase Index 2.0 CK-MB (CK-2) 3.5 Troponin I < 0.02 Total Protein 6.4 Albumin 2.9 L Lipase 50 L Urine Color Yellow Urine Appearance Clear Urine pH 7.0 Ur Specific Proctor 1.017 Urine Protein Negative Urine Glucose (UA) Negative Urine Ketones Negative Urine Blood Negative Urine Nitrite Negative Urine Bilirubin Negative Urine Urobilinogen 0.2 Ur Leukocyte Esterase Negative ASSESSMENT/PLAN: 64 yo M PMH of alcohol abuse, COPD, mesothelioma, HTN presents admitted for LBP , suprapubic pain , electrolyte abnormalities Abdominal Pain - CT Abd/ Pelvis :IMPRESSION: Small bilateral pleural effusions. Small left lower lobe consolidation or atelectasis. IVC filter noted No inflammatory changes of the appendix Significant distention of urinary bladder. Limited evaluation of the GI tract because of lack of oral contrast. If Clinically warranted recommend follow-up studies - pt states the pain is at baseline - UA negative Alcohol Abuse -monitor for signs of withdrawal -c/w librium protocol - c/w IVF -vitamins, folate, thiamine -monitor lytes Fall -CT head negative: Impression: No acute intracranial bleed or fracture.No CT evidence of acute infarct. CT Cspine: Motion artifact limits portions of the study however no gross evidence of acute fracture Multilevel degenerative change noted HTN - start on norvasc 5 daily -continue to monitor Elevated AST -likely from alcohol abuse - continue to monitor F/E/N -IV NS +20 KCl @ 83 mls/min -monitor lytes, s/p 2 mg Mag in Ed -low sodium diet DVT ppx: hep Dispo: admit to medicine Visit type - Emergency Visit Emergency Visit: Yes ED Registration Date: 08/14/19 Care time: The patient presented to the Emergency Department on the above date and was hospitalized for further evaluation of their emergent condition. - New Patient This patient is new to me today: Yes Date on this admission: 08/14/19 - Critical Care Critical Care patient: No ATTENDING PHYSICIAN STATEMENT I saw and evaluated the patient. I reviewed the resident's note and discussed the case with the resident. I agree with the resident's findings and plan as documented. SUBJECTIVE: OBJECTIVE: ASSESSMENT AND PLAN:
[2019-08-14] MEDS ORDERED: SODIUM CHLORIDE 1,000 ML IV SCH (14:30)
--- NOTE | 2019-08-14 15:32 | PN ---
Teaching Attending Note Name of Resident: Lauren Berg ATTENDING PHYSICIAN STATEMENT I saw and evaluated the patient. I reviewed the resident's note and discussed the case with the resident. I agree with the resident's findings and plan as documented. SUBJECTIVE: Patient is a 64yo male with PMhx of EtOH abuse with multiple ED visits for intoxication, COPD, mesothelioma, chronic back pain presented for having abdominal pain and abdominal pain. No fever or chills ,no nausea or vomiting. OBJECTIVE: Vital Signs Temperature 98.3 F 08/14/19 13:40 Pulse Rate 88 08/14/19 13:40 Respiratory Rate 18 08/14/19 13:40 Blood Pressure 157/103 H 08/14/19 13:40 O2 Sat by Pulse Oximetry (%) 96 08/14/19 13:40 GENERAL: The patient is awake, alert, and fully oriented, in no acute distress. HEAD: Normal with no signs of trauma. EYES: PERRL, extraocular movements intact, sclera anicteric, conjunctiva clear. ENT: Ears normal, oropharynx clear without exudates, moist mucous membranes. NECK: Trachea midline, full range of motion, supple. LUNGS: Breath sounds equal, clear to auscultation bilaterally, no wheezes, no crackles, no accessory muscle use. HEART: Regular rate and rhythm, S1, S2 positive , no rub or gallop. ABDOMEN: Soft, NT, ND, normoactive bowel sounds, no guarding, no rebound, no hepatosplenomegaly, no masses. EXTREMITIES: 2+ pulses, warm, well-perfused, no edema. NEUROLOGICAL: Cranial nerves II through XII grossly intact. Normal speech, gait not observed. SKIN: Warm, dry, normal turgor, no rashes or lesions noted CBCD WBC 6.5 K/mm3 (4.0-10.0) 08/14/19 08:15 RBC 3.81 M/mm3 (4.00-5.60) L 08/14/19 08:15 Hgb 9.3 GM/dL (11.7-16.9) L 08/14/19 08:15 Hct 29.7 % (35.4-49) L 08/14/19 08:15 MCV 77.9 fl (80-96) L 08/14/19 08:15 MCHC 31.2 g/dl (32.0-35.9) L 08/14/19 08:15 RDW 21.3 % (11.9-15.9) H 08/14/19 08:15 Plt Count 245 K/MM3 (134-434) D 08/14/19 08:15 MPV 7.9 fl (7.5-11.1) 08/14/19 08:15 CMP Sodium 142 mmol/L (136-145) 08/14/19 07:55 Potassium 4.0 mmol/L (3.5-5.1) 08/14/19 07:55 Chloride 105 mmol/L (98-107) 08/14/19 07:55 Carbon Dioxide 30 mmol/L (21-32) 08/14/19 07:55 Anion Gap 7 MMOL/L (8-16) L 08/14/19 07:55 BUN 4.9 mg/dL (7-18) L 08/14/19 07:55 Creatinine 0.6 mg/dL (0.55-1.3) 08/14/19 07:55 Random Glucose 88 mg/dL (74-106) 08/14/19 07:55 Calcium 8.4 mg/dL (8.5-10.1) L 08/14/19 07:55 Total Bilirubin 1.0 mg/dL (0.2-1) 08/14/19 07:55 AST 68 U/L (15-37) H 08/14/19 07:55 ALT 28 U/L (13-61) 08/14/19 07:55 Alkaline Phosphatase 103 U/L (45-117) 08/14/19 07:55 Total Protein 6.4 g/dl (6.4-8.2) 08/14/19 07:55 Albumin 2.9 g/dl (3.4-5.0) L 08/14/19 07:55 CARDIAC ENZYMES Creatine Kinase 174 U/L (26-308) 08/14/19 07:55 Troponin I < 0.02 ng/ml (0.00-0.05) 08/14/19 07:55 Current Medications Generic Name Dose Route Start Last Admin Trade Name Freq PRN Reason Stop Dose Admin Folic Acid 1 mg 08/15/19 10:00 Folic Acid - PO DAILY [facility] Heparin Sodium (Porcine) 5,000 unit 08/14/19 22:00 Heparin - SQ TID [facility] Folic Acid 1 mg/ Thiamine HCl 1,000 mls @ 125 mls/hr 08/14/19 10:56 08/14/19 11:57 100 mg/ Multivitamins/Minerals IVPB 08/14/19 18:55 125 mls/hr 10 ml/ Sodium Chloride ONCE ONE Administration Potassium Chloride/Sodium Chloride 20 meq in 1,000 mls @ 83 mls/hr 08/14/19 14 :30 Ns+20 Meq Kcl - IV ASDIR [facility] Multivitamins/Minerals/Vitamin C 1 tab 08/15/19 10:00 Tab-A-Vit - PO DAILY [facility] Thiamine HCl 100 mg 08/15/19 10:00 Vitamin B1 - PO DAILY [facility] Home Medications Medication Instructions Recorded NK [No Known Home Medication] 07/23/19 ASSESSMENT AND PLAN: This is a 64 year old man with a history of HTN, alcohol abuse( drinks 2 pints of Vodka per day) , COPD, mesothelioma, chronic back pain who presented to the ED for having intractable generalized pain . # Alcohol intoxication: AST>ALT in compliance with alcohol use; will start Librium detox, Thiamine, folic acid, multivitamin # Hx of COPD: Stble #Microcytic Anemia # HTN Uncontrolled , will start him on Norvasc 5mg po daily #Hx of mesothelioma DVt Px: heparin sq
[2019-08-14] MEDS ORDERED: chlordiazePOXIDE HCL 25 MG CAPSULE PO PRN (15:54)
[2019-08-14] MEDS: SODIUM CHLORIDE 0.9%/KCL 20 MEQ/1,000 ML INFUS.BAG IV SCH ×2 (16:19→18:29)
[2019-08-14 18:15] VITALS: BMI 36.1
[2019-08-14] MEDS: chlordiazePOXIDE HCL 25 MG CAPSULE PO SCH ×2 (18:26→23:34)
[2019-08-14] MEDS: HEPARIN NA (PORCINE) 5,000 UNITS/ML 1ML VIAL SQ SCH (21:12)
[2019-08-15] MEDS: chlordiazePOXIDE HCL 25 MG CAPSULE PO SCH ×4 (06:13→22:24)
[2019-08-15] MEDS: HEPARIN NA (PORCINE) 5,000 UNITS/ML 1ML VIAL SQ SCH ×3 (06:13→22:26)
[2019-08-15] MEDS: FOLIC ACID 1 MG TABLET (FP) PO SCH (09:22)
[2019-08-15] MEDS: THIAMINE HCL 100 MG TABLET (FP) PO SCH (09:23)
[2019-08-15] MEDS: amLODIPine BESYLATE 5 MG TABLET (FP) PO SCH (09:23)
[2019-08-15] MEDS: MULTIVITAMINS (DAILY MVI) TABLET (FP) PO SCH (09:23)
[2019-08-15] MEDS: SODIUM CHLORIDE 0.9%/KCL 20 MEQ/1,000 ML INFUS.BAG IV SCH ×2 (09:27→15:07)
--- NOTE | 2019-08-15 09:29 | EKG ---
Test Reason : Blood Pressure : / mmHG Vent. Rate : 089 BPM Atrial Rate : 089 BPM P-R Int : 122 ms QRS Dur : 118 ms QT Int : 392 ms P-R-T Axes : 030 -26 057 degrees QTc Int : 476 ms POOR DATA QUALITY, INTERPRETATION MAY BE ADVERSELY AFFECTED SINUS RHYTHM WITH PREMATURE SUPRAVENTRICULAR COMPLEXES POSSIBLE LEFT ATRIAL ENLARGEMENT NON-SPECIFIC INTRA-VENTRICULAR CONDUCTION DELAY NONSPECIFIC ST AND T WAVE ABNORMALITY ABNORMAL ECG WHEN COMPARED WITH ECG OF 24-JUL-2019 22:00, PREMATURE SUPRAVENTRICULAR COMPLEXES ARE NOW PRESENT CRITERIA FOR SEPTAL INFARCT ARE NO LONGER PRESENT Confirmed by Veena Zurita ([id number]) on 08/15/2019 9:29:18 AM Referred By: Confirmed By:Veena Zurita
[2019-08-15 10:31] LABS: ALBUMIN 2.9 g/dl (3.4-5.0); BILIRUBIN,TOTAL 1.3 mg/dL (0.2-1); CALCIUM 7.9 mg/dL (8.5-10.1); CREATININE 0.5 mg/dL (0.55-1.3); MAGNESIUM 1.3 mg/dL (1.8-2.4); POTASSIUM 3.2 mmol/L (3.5-5.1); TOT PROT 6.2 g/dl (6.4-8.2)
[2019-08-15] MEDS ORDERED: POTASSIUM CHLORIDE TABS 20 MEQ TABLET.ER (FP) PO ONE (13:52)
[2019-08-15] MEDS: KCL 10 MEQ IVPB 10 MEQ/100 ML INFUS.BAG IVPB SCH ×3 (16:03→17:25)
--- NOTE | 2019-08-15 16:44 | PN ---
Physical Exam: SUBJECTIVE: Patient seen and examined at bedside. pt states that he has abdominal pain and multiple episodes of diarrhea OBJECTIVE: Vital Signs Period Temp Pulse Resp BP Sys/Jang Pulse Ox Last 24 Hr 98.2 F-98.7 F 80-92 18-20 116-161/73-102 94-96 GENERAL: The patient is awake, alert, and fully oriented, in no acute distress. HEAD: Normal with no signs of trauma. LUNGS: Breath sounds equal, b/l rhonchi, no accessory muscle use. HEART: Regular rate and rhythm, S1, S2 ABDOMEN: Soft, diffuse tenderness to palpation, nondistended, normoactive bowel sounds EXTREMITIES: 2+ pulses, warm, well-perfused, 2+ Le edema. SKIN: Warm, dry, normal turgor, no rashes or lesions noted Laboratory Results - last 24 hr 08/15/19 09:05 Sodium 139 Potassium 3.2 L Chloride 103 Carbon Dioxide 30 Anion Gap 6 L BUN 5.0 L Creatinine 0.5 L Est GFR (CKD-EPI)AfAm 132.73 Est GFR (CKD-EPI)NonAf 114.52 Random Glucose 92 Calcium 7.9 L Magnesium 1.3 L Total Bilirubin 1.3 H AST 31 ALT 23 Alkaline Phosphatase 104 Total Protein 6.2 L Albumin 2.9 L Current Medications Amlodipine Besylate (Norvasc -) 5 mg PO DAILY [facility] Last Admin: 08/15/19 09:23 Dose: 5 mg Chlordiazepoxide HCl (Librium -) 10 mg PO Q0P-[facility] Stop: 08/17/19 23:01 Chlordiazepoxide HCl (Librium -) 10 mg PO Q12H [facility] Stop: 08/18/19 17:01 Chlordiazepoxide HCl (Librium -) 10 mg PO Q4H PRN PRN Reason: WITHDRAWAL(CONT SUBST) Stop: 08/18/19 00:00 Chlordiazepoxide HCl (Librium -) 10 mg PO ONCE@0500 ONE Stop: 08/19/19 05:01 Chlordiazepoxide HCl (Librium -) 50 mg PO [id number] Stop: 08/15/19 23:01 Last Admin: 08/15/19 11:22 Dose: 50 mg Chlordiazepoxide HCl (Librium -) 25 mg PO [id number] Stop: 08/16/19 23:01 Chlordiazepoxide HCl (Librium -) 25 mg PO Q4H PRN PRN Reason: WITHDRAWAL(CONT SUBST) Stop: 08/16/19 23:59 Folic Acid (Folic Acid -) 1 mg PO DAILY [facility] Last Admin: 08/15/19 09:22 Dose: 1 mg Heparin Sodium (Porcine) (Heparin -) 5,000 unit SQ TID [facility] Last Admin: 08/15/19 15:00 Dose: 5,000 unit Potassium Chloride/Sodium Chloride (Ns+20 Meq Kcl -) 20 meq in 1,000 mls @ 83 mls/hr IV ASDIR [facility] Last Admin: 08/15/19 15:07 Dose: Not Given Potassium Chloride (Potassium Chloride 10 Meq Premix Ivpb -) 10 meq in 100 mls @ 100 mls/hr IVPB Q60M [facility] Stop: 08/15/19 18:14 Last Admin: 08/15/19 16:03 Dose: Not Given Multivitamins/Minerals/Vitamin C (Tab-A-Vit -) 1 tab PO DAILY [facility] Last Admin: 08/15/19 09:23 Dose: 1 tab Thiamine HCl (Vitamin B1 -) 100 mg PO DAILY [facility] Last Admin: 08/15/19 09:23 Dose: 100 mg ASSESSMENT/PLAN: 64 yo M PMH of alcohol abuse, COPD, mesothelioma, HTN presents admitted for LBP , suprapubic pain , electrolyte abnormalities. Abdominal Pain - CT Abd/ Pelvis :IMPRESSION: Small bilateral pleural effusions. Small left lower lobe consolidation or atelectasis. IVC filter noted No inflammatory changes of the appendix Significant distention of urinary bladder. Limited evaluation of the GI tract because of lack of oral contrast. If Clinically warranted recommend follow-up studies - pt states the pain is at baseline - UA negative -pending Cdif Alcohol Abuse -monitor for signs of withdrawal -c/w librium protocol - c/w IVF -vitamins, folate, thiamine -monitor lytes Fall -CT head negative: Impression: No acute intracranial bleed or fracture.No CT evidence of acute infarct. CT Cspine: Motion artifact limits portions of the study however no gross evidence of acute fracture Multilevel degenerative change noted HTN - start on norvasc 5 daily -continue to monitor Elevated AST -likely from alcohol abuse - continue to monitor F/E/N -IV NS +20 KCl @ 83 mls/min -monitor lytes, s/p 2 mg Mag in Ed -low sodium diet DVT ppx: hep Dispo: admit to medicine Visit type - Emergency Visit Emergency Visit: No - New Patient This patient is new to me today: No - Critical Care Critical Care patient: No - Discharge Referral Referred to [facility] No ATTENDING PHYSICIAN STATEMENT I saw and evaluated the patient. I reviewed the resident's note and discussed the case with the resident. I agree with the resident's findings and plan as documented. SUBJECTIVE: OBJECTIVE: ASSESSMENT AND PLAN:
--- NOTE | 2019-08-15 18:05 | PN ---
Teaching Attending Note Name of Resident: Lauren Berg ATTENDING PHYSICIAN STATEMENT I saw and evaluated the patient. I reviewed the resident's note and discussed the case with the resident. I agree with the resident's findings and plan as documented. SUBJECTIVE: Patient is comfortable with no acute distress, c/o having back pain Vital Signs Temperature 98.3 F 08/15/19 15:00 Pulse Rate 92 H 08/15/19 15:00 Respiratory Rate 18 08/15/19 15:00 Blood Pressure 143/92 08/15/19 15:00 O2 Sat by Pulse Oximetry (%) 96 08/15/19 09:00 GENERAL: The patient is awake, alert, and fully oriented, in no acute distress. HEAD: Normal with no signs of trauma. EYES: PERRL, extraocular movements intact, sclera anicteric, conjunctiva clear. ENT: Ears normal, oropharynx clear without exudates, moist mucous membranes. NECK: Trachea midline, full range of motion, supple. LUNGS: Breath sounds equal, clear to auscultation bilaterally, no wheezes, no crackles, no accessory muscle use. HEART: Regular rate and rhythm, S1, S2 positive , no rub or gallop. ABDOMEN: Soft, NT, ND, +BS, no guarding, no rebound, no hepatosplenomegaly, no masses. EXTREMITIES: 2+ pulses, warm, well-perfused, no edema. NEUROLOGICAL: Cranial nerves II through XII grossly intact. Normal speech, gait not observed. SKIN: Warm, dry, normal turgor, no rashes or lesions noted CBCD WBC 6.5 K/mm3 (4.0-10.0) 08/14/19 08:15 RBC 3.81 M/mm3 (4.00-5.60) L 08/14/19 08:15 Hgb 9.3 GM/dL (11.7-16.9) L 08/14/19 08:15 Hct 29.7 % (35.4-49) L 08/14/19 08:15 MCV 77.9 fl (80-96) L 08/14/19 08:15 MCHC 31.2 g/dl (32.0-35.9) L 08/14/19 08:15 RDW 21.3 % (11.9-15.9) H 08/14/19 08:15 Plt Count 245 K/MM3 (134-434) D 08/14/19 08:15 MPV 7.9 fl (7.5-11.1) 08/14/19 08:15 CMP Sodium 139 mmol/L (136-145) 08/15/19 09:05 Potassium 3.2 mmol/L (3.5-5.1) L 08/15/19 09:05 Chloride 103 mmol/L (98-107) 08/15/19 09:05 Carbon Dioxide 30 mmol/L (21-32) 08/15/19 09:05 Anion Gap 6 MMOL/L (8-16) L 08/15/19 09:05 BUN 5.0 mg/dL (7-18) L 08/15/19 09:05 Creatinine 0.5 mg/dL (0.55-1.3) L 08/15/19 09:05 Random Glucose 92 mg/dL (74-106) 08/15/19 09:05 Calcium 7.9 mg/dL (8.5-10.1) L 08/15/19 09:05 Total Bilirubin 1.3 mg/dL (0.2-1) H 08/15/19 09:05 AST 31 U/L (15-37) 08/15/19 09:05 ALT 23 U/L (13-61) 08/15/19 09:05 Alkaline Phosphatase 104 U/L (45-117) 08/15/19 09:05 Total Protein 6.2 g/dl (6.4-8.2) L 08/15/19 09:05 Albumin 2.9 g/dl (3.4-5.0) L 08/15/19 09:05 CARDIAC ENZYMES Creatine Kinase 174 U/L (26-308) 08/14/19 07:55 Troponin I < 0.02 ng/ml (0.00-0.05) 08/14/19 07:55 Current Medications Generic Name Dose Route Start Last Admin Trade Name Brendonq PRN Reason Stop Dose Admin Folic Acid 1 mg 08/15/19 10:00 Folic Acid - PO DAILY CAREY Heparin Sodium (Porcine) 5,000 unit 08/14/19 22:00 Heparin - SQ TID CAREY Folic Acid 1 mg/ Thiamine HCl 1,000 mls @ 125 mls/hr 08/14/19 10:56 08/14/19 11:57 100 mg/ Multivitamins/Minerals IVPB 08/14/19 18:55 125 mls/hr 10 ml/ Sodium Chloride ONCE ONE Administration Potassium Chloride/Sodium Chloride 20 meq in 1,000 mls @ 83 mls/hr 08/14/19 14 :30 Ns+20 Meq Kcl - IV ASDIR CAREY Multivitamins/Minerals/Vitamin C 1 tab 08/15/19 10:00 Tab-A-Vit - PO DAILY CAREY Thiamine HCl 100 mg 08/15/19 10:00 Vitamin B1 - PO DAILY CAREY Home Medications Medication Instructions Recorded NK [No Known Home Medication] 07/23/19 ASSESSMENT AND PLAN: This is a 64 year old man with a history of HTN, alcohol abuse( drinks 2 pints of Vodka per day) , COPD, mesothelioma, chronic back pain who presented to the ED for having intractable generalized pain . # Alcohol intoxication: AST>ALT in compliance with alcohol use; continue Librium detox, Thiamine, folic acid, multivitamin # Hypokalemia: replete # Hx of COPD: Stable #Microcytic Anemia # HTN Uncontrolled , will start him on Norvasc 5mg po daily #Hx of mesothelioma #hx of chronic back pain DVt Px: heparin sq
[2019-08-15] MEDS ORDERED: MAGNESIUM SULF 50% (8.12 MEQ/2 ML-1 GM VIAL) IVPB ONE (18:30)
[2019-08-15] MEDS: POTASSIUM CHLORIDE TABS 20 MEQ TABLET.ER (FP) PO SCH (18:43)
[2019-08-15] MEDS ORDERED: IBUPROFEN 800 MG/8 ML IJ IVPB PRN (23:16)
[2019-08-15] MEDS ORDERED: IBUPROFEN 600 MG TABLET (FP) PO PRN (23:17)
[2019-08-16] MEDS: SODIUM CHLORIDE 0.9%/KCL 20 MEQ/1,000 ML INFUS.BAG IV SCH (03:16)
[2019-08-16] MEDS: chlordiazePOXIDE HCL 25 MG CAPSULE PO SCH ×2 (05:18→11:53)
[2019-08-16] MEDS: HEPARIN NA (PORCINE) 5,000 UNITS/ML 1ML VIAL SQ SCH (05:18)
--- NOTE | 2019-08-16 08:36 | PN ---
Teaching Attending Note Name of Resident: Lauren Berg ATTENDING PHYSICIAN STATEMENT I saw and evaluated the patient. I reviewed the resident's note and discussed the case with the resident. I agree with the resident's findings and plan as documented. SUBJECTIVE: Patient is c/o having low back pain, and does not want to answer any questions. mckay snot want to be bothered. Vital Signs Temperature 97.6 F 08/16/19 06:00 Pulse Rate 87 08/16/19 06:00 Respiratory Rate 18 08/16/19 06:00 Blood Pressure 135/91 08/16/19 06:00 O2 Sat by Pulse Oximetry (%) 91 L 08/15/19 21:00 GENERAL: The patient is awake, alert, and fully oriented, in no acute distress. HEAD: Normal with no signs of trauma. EYES: PERRL, extraocular movements intact, sclera anicteric, conjunctiva clear. ENT: Ears normal, oropharynx clear without exudates, moist mucous membranes. NECK: Trachea midline, full range of motion, supple. LUNGS: Breath sounds equal, clear to auscultation bilaterally, no wheezes, no crackles, no accessory muscle use. HEART: Regular rate and rhythm, S1, S2 positive , no rub or gallop. ABDOMEN: Soft, NT, ND, +BS, no guarding, no rebound, no hepatosplenomegaly, no masses. EXTREMITIES: 2+ pulses, warm, well-perfused, no edema. NEUROLOGICAL: Cranial nerves II through XII grossly intact. Normal speech, gait not observed. SKIN: Warm, dry, normal turgor, no rashes or lesions noted CBCD WBC 6.5 K/mm3 (4.0-10.0) 08/14/19 08:15 RBC 3.81 M/mm3 (4.00-5.60) L 08/14/19 08:15 Hgb 9.3 GM/dL (11.7-16.9) L 08/14/19 08:15 Hct 29.7 % (35.4-49) L 08/14/19 08:15 MCV 77.9 fl (80-96) L 08/14/19 08:15 MCHC 31.2 g/dl (32.0-35.9) L 08/14/19 08:15 RDW 21.3 % (11.9-15.9) H 08/14/19 08:15 Plt Count 245 K/MM3 (134-434) D 08/14/19 08:15 MPV 7.9 fl (7.5-11.1) 08/14/19 08:15 CMP Sodium 139 mmol/L (136-145) 08/15/19 09:05 Potassium 3.2 mmol/L (3.5-5.1) L 08/15/19 09:05 Chloride 103 mmol/L (98-107) 08/15/19 09:05 Carbon Dioxide 30 mmol/L (21-32) 08/15/19 09:05 Anion Gap 6 MMOL/L (8-16) L 08/15/19 09:05 BUN 5.0 mg/dL (7-18) L 08/15/19 09:05 Creatinine 0.5 mg/dL (0.55-1.3) L 08/15/19 09:05 Random Glucose 92 mg/dL (74-106) 08/15/19 09:05 Calcium 7.9 mg/dL (8.5-10.1) L 08/15/19 09:05 Total Bilirubin 1.3 mg/dL (0.2-1) H 08/15/19 09:05 AST 31 U/L (15-37) 08/15/19 09:05 ALT 23 U/L (13-61) 08/15/19 09:05 Alkaline Phosphatase 104 U/L (45-117) 08/15/19 09:05 Total Protein 6.2 g/dl (6.4-8.2) L 08/15/19 09:05 Albumin 2.9 g/dl (3.4-5.0) L 08/15/19 09:05 CARDIAC ENZYMES Creatine Kinase 174 U/L (26-308) 08/14/19 07:55 Troponin I < 0.02 ng/ml (0.00-0.05) 08/14/19 07:55 Current Medications Generic Name Dose Route Start Last Admin Trade Name Freq PRN Reason Stop Dose Admin Amlodipine Besylate 5 mg 08/15/19 10:00 08/15/19 09:23 Norvasc - PO 5 mg DAILY CAREY Administration Chlordiazepoxide HCl 10 mg 08/17/19 05:00 Librium - PO 08/17/19 23:01 [id number] CAREY Chlordiazepoxide HCl 10 mg 08/18/19 05:00 Librium - PO 08/18/19 17:01 Q12H CAREY Chlordiazepoxide HCl 10 mg 08/17/19 00:00 Librium - PO 08/18/19 00:00 Q4H PRN WITHDRAWAL(CONT SUBST) Chlordiazepoxide HCl 10 mg 08/19/19 05:00 Librium - PO 08/19/19 05:01 ONCE@0500 ONE Chlordiazepoxide HCl 25 mg 08/16/19 05:00 08/16/19 05:18 Librium - PO 08/16/19 23:01 25 mg [id number] CAREY Administration Chlordiazepoxide HCl 25 mg 08/14/19 15:54 Librium - PO 08/16/19 23:59 Q4H PRN WITHDRAWAL(CONT SUBST) Folic Acid 1 mg 08/15/19 10:00 08/15/19 09:22 Folic Acid - PO 1 mg DAILY CAREY Administration Heparin Sodium (Porcine) 5,000 unit 08/14/19 22:00 08/16/19 05:18 Heparin - SQ 5,000 unit TID CAREY Administration Potassium Chloride/Sodium Chloride 20 meq in 1,000 mls @ 83 mls/hr 08/14/19 14 :30 08/16/19 03:16 Ns+20 Meq Kcl - IV 83 mls/hr ASDIR CAREY Administration Ibuprofen 600 mg 08/15/19 23:17 Motrin - PO Q4H PRN PAIN LEVEL 4 - 6 Lidocaine 2 patch 08/16/19 10:00 Lidoderm Patch - TP DAILY [facility] Miscellaneous 1 each 08/16/19 22:00 Lidoderm Patch Removal MC DAILY@2200 [facility] Multivitamins/Minerals/Vitamin C 1 tab 08/15/19 10:00 08/15/19 09:23 Tab-A-Vit - PO 1 tab DAILY [facility] Administration Potassium Chloride 40 meq 08/15/19 18:15 08/15/19 18:43 K-Dur - PO 08/18/19 18:14 Not Given DAILY CAREY Thiamine HCl 100 mg 08/15/19 10:00 08/15/19 09:23 Vitamin B1 - PO 100 mg DAILY CAREY Administration Home Medications Medication Instructions Recorded NK [No Known Home Medication] 07/23/19 ASSESSMENT AND PLAN: This is a 64 year old man with a history of HTN, alcohol abuse( drinks 2 pints of Vodka per day) , COPD, mesothelioma, chronic back pain who presented to the ED for having intractable generalized pain . # Alcohol intoxication: AST>ALT in compliance with alcohol use; continue Librium detox, Thiamine, folic acid, multivitamin continue # Hypokalemia: replete, refusing potassium supplements, refusing treatment , IVF # Hx of COPD: Stable #Microcytic Anemia # HTN Uncontrolled , on Norvasc 5mg po daily continue #Hx of mesothelioma DVt Px: heparin sq
[2019-08-16 09:04] VITALS: BP 132/80; PULSE 98; TEMP 98.8
[2019-08-16] MEDS: amLODIPine BESYLATE 5 MG TABLET (FP) PO SCH (09:13)
[2019-08-16] MEDS: FOLIC ACID 1 MG TABLET (FP) PO SCH (09:13)
[2019-08-16] MEDS: THIAMINE HCL 100 MG TABLET (FP) PO SCH (09:13)
[2019-08-16] MEDS: POTASSIUM CHLORIDE TABS 20 MEQ TABLET.ER (FP) PO SCH (09:14)
[2019-08-16] MEDS: MULTIVITAMINS (DAILY MVI) TABLET (FP) PO SCH (09:17)
[2019-08-16] MEDS ORDERED: LIDOCAINE 5% TOPICAL PATCH TP SCH (10:00)
--- NOTE | 2019-08-16 13:45 | DS ---
Physical Exam: SUBJECTIVE: Patient seen and examined at bedside. pt states his whole body hurts. OBJECTIVE: Vital Signs Period Temp Pulse Resp BP Sys/Jang Pulse Ox Last 24 Hr 97.6 F-98.8 F 85-98 16-18 132-143/78-92 91-95 PHYSICAL EXAM GENERAL: The patient is awake, alert, and fully oriented, in no acute distress. HEAD: Normal with no signs of trauma. NECK: Trachea midline, full range of motion, supple. LUNGS: Breath sounds equal,rhonchi b/l, no accessory muscle use. HEART: Regular rate and rhythm, S1, S2 ABDOMEN: refuses EXTREMITIES: 2+ pulses, warm, well-perfused, no edema. HOSPITAL COURSE: Date of Admission:08/14/19 64 yo M PMH of alcohol abuse, COPD, mesothelioma, HTN presents admitted for LBP , suprapubic pain , electrolyte abnormalities. pt had a CT Abd/ Pelvis : IMPRESSION: Small bilateral pleural effusions. Small left lower lobe consolidation or atelectasis. IVC filter noted No inflammatory changes of the appendix Significant distention of urinary bladder. Limited evaluation of the GI tract because of lack of oral contrast. pt also states that abdominal pain is at baseline. pt was tested for Cdif since he also endorsed diarrhea. Pt has a hx of alcohol abuse and was started on librium protocol, fluids, vitamins, folate, and thiamine. Pt had CT head negative: Impression: No acute intracranial bleed or fracture.No CT evidence of acute infarct. and CT Cspine: Motion artifact limits portions of the study however no gross evidence of acute fracture Multilevel degenerative change noted . for the pts high blood pressure norvasc 5 daily was started. this morning, pt left AMA. risks were explained to patient . Date of Discharge: 08/16/19 Minutes to complete discharge: 36 Discharge Summary Problems reviewed: Yes Reason For Visit: ALCOHOL WITHDRAWAL SYNDROME/PLEURAL EFFUSION/ Condition: Guarded - Instructions Diet, Activity, Other Instructions: You came into the hospital after falling. You had a CT of your head which was negative. You also had bloodwork which showed that some of your electrolytes were low. We gave you some magnesium and potassium. We also helped your pain with a lidoderm patch. You had high blood pressure and we started a medication called norvasc 5 mg. You should take norvasc 5 mg daily. Please avoid drinking alcohol. We recommend you to go to rehab at [facility] to continue your sobriety. Please follow up with your primary care physician in 1 week to manage your blood pressure and chronic medical conditions If you have any new, alarming, or concerning symptoms please return to the ED or call 911. Referrals: Lily Cornejo [Primary Care Provider] - Disposition: AGAINST MEDICAL ADVICE - Home Medications Comprehensive Discharge Medication List: Ambulatory Orders NK [No Known Home Medication] 07/23/19 This patient is new to me today: No Emergency Visit: No Critical Care patient: No - Discharge Referral Referred to [facility] No ATTENDING PHYSICIAN STATEMENT I saw and evaluated the patient. I reviewed the resident's note and discussed the case with the resident. I agree with the resident's findings and plan as documented. SUBJECTIVE: OBJECTIVE: ASSESSMENT AND PLAN:
[2019-08-16] MEDS ORDERED: LIDOCAINE PATCH REMOVAL MC SCH (22:00)
[2019-08-17] MEDS ORDERED: chlordiazePOXIDE HCL 10 MG CAPSULE PO PRN
[2019-08-17] MEDS ORDERED: chlordiazePOXIDE HCL 10 MG CAPSULE PO SCH (05:00)
--- NOTE | 2019-08-17 10:50 | EKG ---
Test Reason : Blood Pressure : / mmHG Vent. Rate : 097 BPM Atrial Rate : 097 BPM P-R Int : 190 ms QRS Dur : 090 ms QT Int : 392 ms P-R-T Axes : 040 -29 061 degrees QTc Int : 497 ms POOR DATA QUALITY, INTERPRETATION MAY BE ADVERSELY AFFECTED NORMAL SINUS RHYTHM NONSPECIFIC ST AND T WAVE ABNORMALITY PROLONGED QT ABNORMAL ECG WHEN COMPARED WITH ECG OF 13-AUG-2019 15:29, PREMATURE SUPRAVENTRICULAR COMPLEXES ARE NO LONGER PRESENT NONSPECIFIC T WAVE ABNORMALITY, WORSE IN LATERAL LEADS Confirmed by Zachary Perrin ([id number]) on 08/17/2019 10:50:23 AM Referred By: Confirmed By:Zachary Perrin
--- NOTE | 2019-08-17 10:50 | EKG ---
Test Reason : Blood Pressure : / mmHG Vent. Rate : 084 BPM Atrial Rate : 084 BPM P-R Int : 154 ms QRS Dur : 092 ms QT Int : 420 ms P-R-T Axes : 044 -15 042 degrees QTc Int : 496 ms POOR DATA QUALITY, INTERPRETATION MAY BE ADVERSELY AFFECTED NORMAL SINUS RHYTHM ANTEROSEPTAL INFARCT , AGE UNDETERMINED ABNORMAL ECG WHEN COMPARED WITH ECG OF 13-AUG-2019 17:07, ANTEROSEPTAL INFARCT IS NOW PRESENT Confirmed by Zachary Perrin ([id number]) on 08/17/2019 10:50:17 AM Referred By: Confirmed By:Zachary Perrin
[2019-08-18] MEDS ORDERED: chlordiazePOXIDE HCL 10 MG CAPSULE PO SCH (05:00)
[2019-08-19] MEDS ORDERED: chlordiazePOXIDE HCL 10 MG CAPSULE PO ONE (05:00)
== END 2019-08-16 12:20 | disposition left against medical advice (07) | DRG 425 ==
LOC: JER 14:52 → JERBED 08-14 10:22 → J4S 08-14 16:41
PROVIDERS: ADMIT Internal Medicine; ATTEND Internal Medicine
DX: E87.6 Hypokalemia (principal); J90 Pleural effusion, not elsewhere classified; E83.42 Hypomagnesemia; F10.230 Alcohol dependence with withdrawal, uncomplicated; J44.9 Chronic obstructive pulmonary disease, unspecified; D50.9 Iron deficiency anemia, unspecified; F10.220 Alcohol dependence with intoxication, uncomplicated; M54.9 Dorsalgia, unspecified; R07.9 Chest pain, unspecified; I10 Essential (primary) hypertension; Y99.8 Other external cause status
CPT/HCPCS: 36415; 70450-TC; 72125-TC; 74177-TC; 80053; 81003; 82550; 82553; 83690; 83735; 84100; 84484; 85025; 93005; 93010; 99285-25; J1644; J7030

== ENCOUNTER 2019-09-09 20:13 | Emergency (ER) | payer OTHER ==
[2019-09-09 20:18] VITALS: PULSE 88; TEMP 97.6; BMI 33.0
--- NOTE | 2019-09-10 01:39 | PDOC ---
History of Present Illness - General Chief Complaint: Shortness of Breath Stated Complaint: INTOXICATED Time Seen by Provider: 09/09/19 21:08 History Source: Patient - History of Present Illness Initial Comments: 09/10/19 01:39 Mr. De Leon is a 64 y/o man w/hx pulmonary HTN p/w ongoing back pain. He denies any fevers, chills, cough, shortness of breath, or chest pain. He denies any acute change in his pain today. History limited by intoxication. Past History - Past Medical History Allergies/Adverse Reactions: Allergies Allergy/AdvReac Type Severity Reaction Status Date / Time Fish Containing Products Allergy Mild Swelling Verified 09/09/19 20:18 No Known Drug Allergies Allergy Verified 09/09/19 20:18 Home Medications: Ambulatory Orders NK [No Known Home Medication] 07/23/19 Anemia: No Asthma: No Cancer: Yes (mesothelioma lung cancer) Cardiac Disorders: No CVA: No COPD: No CHF: No DVT: No Dementia: No Diabetes: No Dialysis: No GI Disorders: No Disorders: No HTN: Yes (non compliant with meds.) Hypercholesterolemia: Yes Kidney Stones: No Liver Disease: Yes (ETOH abuse) Psychiatric Problems: Yes (ETOH abuse) Seizures: No Thyroid Disease: No Lung CA: Yes (Mesothelioma) - Surgical History Abdominal Surgery: No Appendectomy: No Cardiac Surgery: No Cholecystectomy: No Lung Surgery: No Neurologic Surgery: No Orthopedic Surgery: No - Reproductive History Testicular Surgery: No - Immunization History Td Vaccination: Yes TDAP Vaccination: Yes Immunization Up to Date: Yes - Psycho Social/Smoking Cessation Hx Smoking Status: No Smoking History: Never smoked Have you smoked in the past 12 months: No Number of Cigarettes Smoked Daily: 6 If you are a former smoker, when did you quit?: 0 Cigars Per Day: 0 'Breaking Loose' booklet given: 09/22/17 Hx Alcohol Use: Yes Drug/Substance Use Hx: No Substance Use Type: Alcohol Hx Substance Use Treatment: Yes (2019) Review of Systems - Review of Systems Able to Perform ROS?: Yes Comments:: 09/10/19 01:40 GENERAL/CONSTITUTIONAL: No fever or chills. No weakness. HEAD, EYES, EARS, NOSE AND THROAT: No change in vision. No ear pain or discharge. No sore throat. CARDIOVASCULAR: No chest pain or shortness of breath RESPIRATORY: No cough, wheezing, or hemoptysis. GASTROINTESTINAL: No nausea, vomiting, diarrhea or constipation. GENITOURINARY: No dysuria, frequency, or change in urination. MUSCULOSKELETAL: Back pain. No joint or muscle swelling or pain. No neck pain. SKIN: No rash NEUROLOGIC: No headache, vertigo, loss of consciousness, or change in strength/sensation. ENDOCRINE: No increased thirst. No abnormal weight change HEMATOLOGIC/LYMPHATIC: No anemia, easy bleeding, or history of blood clots. ALLERGIC/IMMUNOLOGIC: No hives or skin allergy. *Physical Exam - Vital Signs Last Vital Signs Temp Pulse Resp BP Pulse Ox 97.6 F 88 20 99/59 L 95 09/09/19 20:16 09/09/19 20:16 09/09/19 20:16 09/09/19 20:16 09/09/19 20:16 - Physical Exam 09/10/19 01:41 GENERAL: Awake, alert, and fully oriented, in no acute distress HEAD: No signs of trauma, normocephalic, atraumatic EYES: PERRLA, EOMI, sclera anicteric, conjunctiva clear ENT: Auricles normal inspection, hearing grossly normal, nares patent, oropharynx clear without exudates. Moist mucosa NECK: Normal ROM, supple, no lymphadenopathy, JVD, or masses LUNGS: No distress, speaks full sentences, clear to auscultation bilaterally HEART: Regular rate and rhythm, normal S1 and S2, no murmurs, rubs or gallops, peripheral pulses normal and equal bilaterally. ABDOMEN: Soft, nontender, normoactive bowel sounds. No guarding, no rebound. No masses EXTREMITIES : Normal inspection, Normal range of motion, no edema. No clubbing or cyanosis NEUROLOGICAL: Cranial nerves II through XII grossly intact. Normal speech, normal gait, no focal sensorimotor deficits SKIN: Warm, Dry, normal turgor, no rashes or lesions noted Medical Decision Making - Medical Decision Making 09/10/19 01:43 64M w/hx pulmonary HTN p/w chronic back pain. Negative covid screen, n Discharge - Discharge Information Problems reviewed: Yes Clinical Impression/Diagnosis: Back pain Qualifiers: Back pain location: low back pain Chronicity: chronic Back pain laterality: unspecified Sciatica presence: unspecified whether sciatica present Qualified Code(s): M54.5 - Low back pain; G89.29 - Other chronic pain Condition: Stable Disposition: HOME - Admission No - Follow up/Referral - Patient Discharge Instructions Patient Printed Discharge Instructions: Managing Chronic Low Back Pain Additional Instructions: You were seen in the ER for back pain. Be sure to follow up with your primary care provider as soon as possible, in the next 2-3 days. Return to the ER if you develop chest pain, high fevers, shortness of breath, weakness, confusion, night sweats. - Post Discharge Activity
[2019-09-10] MEDS ORDERED: ACETAMINOPHEN 325 MG TABLET (FP) PO ONE (01:45)
--- NOTE | 2019-09-10 02:25 | PDOC ---
Attending Attestation - Resident Resident Name: Ron Ryan - ED Attending Attestation I have performed the following: I have examined & evaluated the patient, The case was reviewed & discussed with the resident, I agree w/resident's findings & plan - HPI HPI: 09/10/19 19:59 Pt comes with back pain in the midst of the covid pandemic. Pt is ETOH abuser we know well who lives on the streets and shelters. At risk for covid. - Physicial Exam PE: 09/10/19 20:00 Agree with CLINICAL TEAM LEAD/resident exams - Medical Decision Making 09/10/19 03:25 Patient Name: MANUEL GUERRA THIS IS A PRELIMINARY REPORT FROM [facility] DATE OF SERVICE: 2019-09-09 23:53:21 IMAGES: [id number] EXAM: CHEST CT WITHOUT CONTRAST HISTORY: Rule out groundglass pneumonia COMPARISON: None. FINDINGS: There is a 4.6 cm ascending aortic aneurysm. The main pulmonary artery is dilated to 4.0 cm which likely reflects pulmonary arterial hypertension. There is no significant mediastinal or hilar adenopathy. The heart size is upper normal. Coronary artery calcifications are noted. The trachea and bronchi are patent. There is no pleural or pericardial effusion. The lungs are clear other than mild dependent atelectasis. Infrarenal IVC filter is noted. Right hepatic hypodensities incompletely assessed.. IMPRESSION: 4.6 cm ascending aortic aneurysm. Probable pulmonary arterial hypertension. No evidence of pneumonia. Discharge - Discharge Information Problems reviewed: Yes Clinical Impression/Diagnosis: Back pain Qualifiers: Back pain location: low back pain Chronicity: chronic Back pain laterality: unspecified Sciatica presence: unspecified whether sciatica present Qualified Code(s): M54.5 - Low back pain Condition: Stable Disposition: HOME - Follow up/Referral - Patient Discharge Instructions Patient Printed Discharge Instructions: Managing Chronic Low Back Pain Additional Instructions: You were seen in the ER for back pain. Be sure to follow up with your primary care provider as soon as possible, in the next 2-3 days. Return to the ER if you develop chest pain, high fevers, shortness of breath, weakness, confusion, night sweats. - Post Discharge Activity
[2019-09-10 02:45] VITALS: BP 136/86
== END 2019-09-10 02:45 | disposition home or self-care (01) ==
LOC: JER 20:13
DX: M54.5 Low back pain (principal)
CPT/HCPCS: 71250-TC; 99283-25

== ENCOUNTER 2019-12-05 19:57 | Emergency (ER) | payer OTHER ==
[2019-12-05 20:03] VITALS: BP 117/81; PULSE 99; TEMP 98.2; BMI 34.4
[2019-12-05] MEDS ORDERED: LIDOCAINE 5% TOPICAL PATCH TP ONE (20:44)
[2019-12-05] MEDS ORDERED: METHOCARBAMOL 500 MG TABLET PO ONE (20:44)
[2019-12-05] MEDS ORDERED: LIDOCAINE PATCH REMOVAL MC SCH (22:00)
[2019-12-05] MEDS ORDERED: METHOCARBAMOL 500 MG TABLET ONE (22:57)
[2019-12-06] MEDS ORDERED: ACETAMINOPHEN 325 MG TABLET (FP) ONE (00:13)
[2019-12-06] MEDS ORDERED: LIDOCAINE 5% TOPICAL PATCH ONE ×2 (00:13→00:17)
[2019-12-06] MEDS ORDERED: ACETAMINOPHEN 650 MG/20.3 ML ORAL SOLUTION (CUPS) PO ONE (00:15)
== END 2019-12-06 00:36 | disposition home or self-care (01) ==
LOC: JER 19:57
DX: F10.10 Alcohol abuse, uncomplicated (principal); M54.5 Low back pain; G89.29 Other chronic pain
CPT/HCPCS: 99284-25

== ENCOUNTER 2019-12-09 21:56 | Emergency (ER) | payer OTHER ==
[2019-12-09] MEDS ORDERED: LIDOCAINE PATCH REMOVAL MC SCH (22:00)
[2019-12-09 22:39] VITALS: BMI 33.0
[2019-12-09] MEDS ORDERED: LIDOCAINE 5% TOPICAL PATCH TP ONE (23:10)
[2019-12-10] MEDS ORDERED: LIDOCAINE 5% TOPICAL PATCH ONE (01:14)
[2019-12-10 06:04] VITALS: BP 127/61; PULSE 91; TEMP 98.2
[2019-12-10] MEDS ORDERED: POLYMYXIN B SULFATE/TMP 10 ML OPHTHALMIC SOLUTION OU ONE (06:32)
== END 2019-12-10 07:12 | disposition home or self-care (01) ==
LOC: JER 21:56
DX: F10.920 Alcohol use, unspecified with intoxication, uncomplicated (principal); M54.5 Low back pain
CPT/HCPCS: 99284-25

== ENCOUNTER 2019-12-11 20:29 | Emergency (ER) | payer OTHER ==
--- NOTE | 2019-12-11 20:39 | PDOC ---
History of Present Illness - General Stated Complaint: BACK PAIN Time Seen by Provider: 12/11/19 20:32 History Source: Patient Exam Limitations: No Limitations - History of Present Illness Initial Comments: 12/11/19 20:49 Patient is a 64M well known to the ED with PMH of chronic alcohol use and low back pain here today with intoxication and low back pain. Patient states that this is his chronic back pain and that he drank today. Denies fevers, chills, nausea, vomiting. Patient denies changes to gait and difficulty urinating/defecating. Denies headache, chest pain. Past History - Medical History Allergies/Adverse Reactions: Allergies Allergy/AdvReac Type Severity Reaction Status Date / Time Fish Containing Products Allergy Mild Swelling Verified 12/09/19 22:29 No Known Drug Allergies Allergy Verified 12/09/19 22:29 Home Medications: Ambulatory Orders Ferrous Sulfate [Feosol] 325 mg PO BID 28 Days ud 10/27/19 Zinc Sulfate [Orazinc] 220 mg PO DAILY #14 capsule 10/27/19 Amlodipine Besylate [Norvasc -] 10 mg PO DAILY #30 tablet 11/16/19 Atorvastatin Ca [Lipitor] 40 mg PO HS #30 tablet 11/16/19 Potassium Chloride [K-Dur -] 20 meq PO BID 5 Days #10 tablet.er 11/16/19 Cyanocobalamin (Vitamin B-12) [Vitamin B-12] 1,000 mcg PO DAILY #30 capsule 11/29/19 Folic Acid 1 mg PO DAILY #30 tablet 11/29/19 Magnesium Oxide [Magnesium] 400 mg PO BID 3 Days #6 tablet 11/29/19 Multivitamin [Multiple Vitamins] 1 each PO DAILY #30 tablet 11/29/19 Potassium Chloride 40 meq PO DAILY 3 Days #6 tablet.er 11/29/19 Thiamine HCl [B-1] 100 mg PO DAILY #30 tablet 11/29/19 Anemia: No Asthma: No Cancer: Yes (mesothelioma lung cancer) Cardiac Disorders: No CVA: No COPD: No CHF: No DVT: No Dementia: No Diabetes: No Dialysis: No GI Disorders: No Disorders: No HTN: Yes (non compliant with meds.) Hypercholesterolemia: Yes Kidney Stones: No Liver Disease: Yes (ETOH abuse) Psychiatric Problems: Yes (ETOH abuse) Seizures: No Thyroid Disease: No Lung CA: Yes (Mesothelioma) - Surgical History Abdominal Surgery: No Appendectomy: No Cardiac Surgery: No Cholecystectomy: No Lung Surgery: No Neurologic Surgery: No Orthopedic Surgery: No - Reproductive History Testicular Surgery: No - Immunization History Td Vaccination: Yes TDAP Vaccination: Yes Immunization Up to Date: Yes - Psycho-Social/Smoking History Smoking Status: No Smoking History: Current some day smoker Have you smoked in the past 12 months: No Number of Cigarettes Smoked Daily: 6 If you are a former smoker, when did you quit?: 0 Cigars Per Day: 0 'Breaking Loose' booklet given: 09/22/17 Review of Systems - Review of Systems Able to Perform ROS?: Yes Comments:: 12/11/19 20:55 GENERAL/CONSTITUTIONAL: No fever or chills. No weakness. HEAD, EYES, EARS, NOSE AND THROAT: No change in vision. No sore throat. CARDIOVASCULAR: No chest pain or shortness of breath RESPIRATORY: No cough, wheezing, or hemoptysis. GASTROINTESTINAL: No nausea, vomiting, diarrhea or constipation. GENITOURINARY: No dysuria, frequency, or change in urination. MUSCULOSKELETAL: No joint or muscle swelling or pain. No neck pain + back pain. SKIN: No rash NEUROLOGIC: No headache, vertigo, loss of consciousness, or change in strength/sensation. ENDOCRINE: No increased thirst. No abnormal weight change HEMATOLOGIC/LYMPHATIC: No anemia, easy bleeding, or history of blood clots. ALLERGIC/IMMUNOLOGIC: No hives or skin allergy. *Physical Exam - Physical Exam 12/11/19 20:56 GENERAL: Awake, alert, and fully oriented, in no acute distress Back: No midline tenderness, +lower paraspinal tenderness on R, no injury HEAD: No signs of trauma, normocephalic, atraumatic EYES: PERRLA, EOMI, sclera anicteric, conjunctiva clear ENT: Auricles normal inspection, hearing grossly normal, nares patent, oropharynx clear without exudates. Moist mucosa NECK: Normal ROM, supple, no lymphadenopathy, JVD, or masses LUNGS: No distress, speaks full sentences, clear to auscultation bilaterally HEART: Regular rate and rhythm, normal S1 and S2, no murmurs, rubs or gallops, peripheral pulses normal and equal bilaterally. ABDOMEN: Soft, nontender, normoactive bowel sounds. No guarding, no rebound. No masses EXTREMITIES: Normal inspection, Normal range of motion, no edema. No clubbing or cyanosis. NEUROLOGICAL: Cranial nerves II through XII grossly intact. Normal speech, normal gait, no focal sensorimotor deficits SKIN: Warm, Dry, normal turgor, no rashes or lesions noted. Medical Decision Making - Medical Decision Making 12/11/19 20:57 Patient is 64M with history of chronic back pain and etoh abuse here today with alcohol intoxication and back pain. Vitals stable. Will treat with motrin and lidocaine patch, wait for clinical sobriety. 12/12/19 05:47 Clinically sober, will discharge. Patient requesting tylenol for back pain. Discharge - Discharge Information Problems reviewed: Yes Clinical Impression/Diagnosis: Back pain Qualifiers: Back pain location: low back pain Chronicity: chronic Back pain laterality: left Sciatica presence: without sciatica Qualified Code(s): M54.5 - Low back pain Acute alcohol intoxication Qualifiers: Complication of substance-induced condition: uncomplicated Qualified Code(s): F10.920 - Alcohol use, unspecified with intoxication, uncomplicated Condition: Stable Disposition: HOME - Admission No - Follow up/Referral - Patient Discharge Instructions - Post Discharge Activity
[2019-12-11] MEDS ORDERED: IBUPROFEN 400 MG TABLET (FP) PO ONE (20:44)
[2019-12-11] MEDS ORDERED: LIDOCAINE 5% TOPICAL PATCH TP ONE (20:44)
[2019-12-11 20:50] VITALS: BMI 28.7
[2019-12-11] MEDS ORDERED: LIDOCAINE PATCH REMOVAL MC SCH (22:00)
--- NOTE | 2019-12-11 23:54 | PDOC ---
Documentation entered by Geovanna Vera SCRIBE, acting as scribe for Fabiana Woodard MD. Fabiana Woodard MD: This documentation has been prepared by the scribe, Geovanna Vera SCRIBE, under my direction and personally reviewed by me in its entirety. I confirm that the documentation accurately reflects all work, treatment, procedures, and medical decision making performed by me. Attending Attestation - Resident Resident Name: DelfinEdilberto - ED Attending Attestation I have performed the following: I have examined & evaluated the patient, The case was reviewed & discussed with the resident, I agree w/resident's findings & plan, Exceptions are as noted - HPI HPI: 64 yo M well known to this ED with history of EtOH abuse, low back pain presents with alcohol intoxication, low back pain. Low back pain is chronic, unchanged. Denies any recent falls. - Physicial Exam PE: GENERAL: Sleeping, awakens to voice, in no acute distress. +AOB. HEAD: Healing abrasion to L occiput (scab partially fallen off) EYES: PERRLA, EOMI, sclera anicteric, conjunctiva clear ENT: Auricles normal inspection, hearing grossly normal, nares patent, oropharynx clear without exudates. Moist mucosa NECK: Normal ROM, supple, no lymphadenopathy, JVD, or masses LUNGS: Breath sounds equal, clear to auscultation bilaterally. No wheezes, and no crackles HEART: Regular rate and rhythm, normal S1 and S2, no murmurs, rubs or gallops ABDOMEN: Soft, nontender, normoactive bowel sounds. No guarding, no rebound. No masses EXTREMITIES: Normal range of motion, no edema. No clubbing or cyanosis. No cords, erythema, or tenderness NEUROLOGICAL: Cranial nerves II through XII grossly intact. Slurred speech. Motor and sensation intact. Gait not tested due to intoxication SKIN: Warm, dry, normal turgor, no rashes or lesions noted. - Medical Decision Making Pt presents with alcohol intoxication, no acute trauma. Will monitor to clinical sobriety. Discharge - Discharge Information Problems reviewed: Yes Clinical Impression/Diagnosis: Back pain Qualifiers: Back pain location: low back pain Chronicity: chronic Back pain laterality: left Sciatica presence: without sciatica Qualified Code(s): M54.5 - Low back pain Acute alcohol intoxication Qualifiers: Complication of substance-induced condition: uncomplicated Qualified Code(s): F10.920 - Alcohol use, unspecified with intoxication, uncomplicated Condition: Stable - Follow up/Referral - Patient Discharge Instructions - Post Discharge Activity
[2019-12-12] MEDS ORDERED: ACETAMINOPHEN 325 MG TABLET (FP) PO ONE (05:46)
[2019-12-12] MEDS ORDERED: ACETAMINOPHEN 325 MG TABLET (FP) ONE (05:55)
[2019-12-12] MEDS ORDERED: LIDOCAINE 5% TOPICAL PATCH ONE (05:59)
[2019-12-12 06:05] VITALS: BP 138/77; PULSE 82; TEMP 98.2
== END 2019-12-12 06:05 | disposition home or self-care (01) ==
LOC: JER 20:29
DX: M54.5 Low back pain (principal); F10.920 Alcohol use, unspecified with intoxication, uncomplicated
CPT/HCPCS: 99284-25

== ENCOUNTER 2019-12-12 17:26 | Emergency (ER) | payer OTHER ==
[2019-12-12 17:45] VITALS: BMI 33.0
[2019-12-12 17:46] VITALS: BP 107/59; PULSE 89; TEMP 98.9
--- NOTE | 2019-12-12 20:59 | PDOC ---
History of Present Illness - General Chief Complaint: Alcohol intoxication Stated Complaint: INTOX Time Seen by Provider: 12/12/19 19:07 History Source: Patient Exam Limitations: Intoxication - History of Present Illness Initial Comments: 64 yo M w a hx of alcohol abuse, well known to this ED, presents almost daily if not more, presents to the [facility] er BIBEMS because he was seen sitting on a public park bench drinking vodka. The patient states he had 1 pint of Meri vodka today which is less than he usually has. Usually, he drinks 1-3 pints of Meri vodka. He only drinks clear alcohol because dark alcohol upsets his stomach and he gets sick. but when he drinks clear vodka he states he doesn't get a hangover. He use to drink rum but now rum and gin don't work for him either. Patient denies experiencing any trauma Past History - Medical History Allergies/Adverse Reactions: Allergies Allergy/AdvReac Type Severity Reaction Status Date / Time Fish Containing Products Allergy Mild Swelling Verified 12/12/19 17:38 No Known Drug Allergies Allergy Verified 12/12/19 17:38 Home Medications: Ambulatory Orders Ferrous Sulfate [Feosol] 325 mg PO BID 28 Days ud 10/27/19 Zinc Sulfate [Orazinc] 220 mg PO DAILY #14 capsule 10/27/19 Amlodipine Besylate [Norvasc -] 10 mg PO DAILY #30 tablet 11/16/19 Atorvastatin Ca [Lipitor] 40 mg PO HS #30 tablet 11/16/19 Potassium Chloride [K-Dur -] 20 meq PO BID 5 Days #10 tablet.er 11/16/19 Cyanocobalamin (Vitamin B-12) [Vitamin B-12] 1,000 mcg PO DAILY #30 capsule 11/29/19 Folic Acid 1 mg PO DAILY #30 tablet 11/29/19 Magnesium Oxide [Magnesium] 400 mg PO BID 3 Days #6 tablet 11/29/19 Multivitamin [Multiple Vitamins] 1 each PO DAILY #30 tablet 11/29/19 Potassium Chloride 40 meq PO DAILY 3 Days #6 tablet.er 11/29/19 Thiamine HCl [B-1] 100 mg PO DAILY #30 tablet 11/29/19 Anemia: No Asthma: No Cancer: Yes (mesothelioma lung cancer) Cardiac Disorders: No CVA: No COPD: No CHF: No DVT: No Dementia: No Diabetes: No Dialysis: No GI Disorders: No Disorders: No HTN: Yes (non compliant with meds.) Hypercholesterolemia: Yes Kidney Stones: No Liver Disease: Yes (ETOH abuse) Psychiatric Problems: Yes (ETOH abuse) Seizures: No Thyroid Disease: No Lung CA: Yes (Mesothelioma) - Surgical History Abdominal Surgery: No Appendectomy: No Cardiac Surgery: No Cholecystectomy: No Lung Surgery: No Neurologic Surgery: No Orthopedic Surgery: No - Reproductive History Testicular Surgery: No - Immunization History Td Vaccination: Yes TDAP Vaccination: Yes Immunization Up to Date: Yes - Psycho-Social/Smoking History Smoking Status: No Smoking History: Former smoker Have you smoked in the past 12 months: No Number of Cigarettes Smoked Daily: 6 If you are a former smoker, when did you quit?: 0 Cigars Per Day: 0 Information on smoking cessation initiated: No 'Breaking Loose' booklet given: 09/22/17 - Substance Abuse Hx (Audit-C & DAST Scrn) How often the patient has a drink containing alcohol: 4 0r more times/wk Number of drinks the patient has on a typical day: 5 or 6 How often the patient has six or more drinks on one occasion: Daily or almost daily Score: In Men: 4 or > Positive; In Women: 3 or > Positive: 10 Screen Result (Pos requires Nsg. Audit-10AR): Positive In the last yr the pt used illegal drug/Rx for NonMed reason: No Score: Yes response is considered Positive: 0 Screen Result (Positive result requires Nsg. DAST-10): Negative Review of Systems - Review of Systems Able to Perform ROS?: No (Intox) *Physical Exam - Vital Signs Last Vital Signs Temp Pulse Resp BP Pulse Ox 98.9 F 89 20 107/59 L 94 L 12/12/19 17:39 12/12/19 17:39 12/12/19 17:39 12/12/19 17:39 12/12/19 17:39 - Physical Exam General Appearance: Yes: Alcohol on Breath HEENT: positive: Normal Voice Neck: positive: Supple Respiratory/Chest: positive: Lungs Clear Cardiovascular: positive: Regular Rhythm, Regular Rate Vascular Pulses: Dorsalis-Pedis (R): 2+, Doralis-Pedis (L): 2+ Gastrointestinal/Abdominal: positive: Protuberent Rectal Exam: positive: deferred Musculoskeletal: positive: Normal Inspection Extremity: positive: Normal Capillary Refill, Normal Inspection, Normal Range of Motion Integumentary: positive: Normal Color Neurologic: positive: Normal Mood/Affect, Disoriented Medical Decision Making - Medical Decision Making 64 yo M w a hx of alcohol abuse, well known to this ED, presents almost daily if not more, presents to the [facility] er BIBEMS because he was seen sitting on a public park bench drinking vodka. The patient states he had 1 pint of Meri vodka today which is less than he usually has. Usually, he drinks 1-3 pints of Meri vodka. He only drinks clear alcohol because dark alcohol upsets his stomach and he gets sick. but when he drinks clear vodka he states he doesn't get a hangover. He use to drink rum but now rum and gin don't work for him either. Patient states his lower back hurts bc he was sleeping on the cement. Reports that he lives on the streets bc "he does things his way" States last time her was here he received a lidocaine patch for his lower back which he says actually works and improved his back pain. He requests for additional lidocaine patches. Patient denies experiencing any trauma Vital Signs Temp Pulse Resp BP Pulse Ox 98.9 F 89 20 107/59 L 94 L 12/12/19 17:39 12/12/19 17:39 12/12/19 17:39 12/12/19 17:39 12/12/19 17:39 DDX IBNLT: Alcohol intoxication, alcohol withdrawal, back injury Plan: MTF, DC when clinically sober. The patient appears clinically sober, is A&O x4, and appears to be capable and have capacity to make reasonable decisions. The patient states they are currently in the emergency department, knows who the president is, states the correct time, correct day, and correct month. The patient is ambulatory in ER and has walked around the nursing station multiple times with a straight gait, and is not ataxic. Tolerating PO well, ate a sandwich and drank juice. Denies having any SI or HI. Patient states will not be driving home. I discussed the physical exam findings, ancillary test results and final diagnoses with the patient. I answered all of the patient's questions. The patient was satisfied with the care received and felt comfortable with the discharge plan and treatment plan. The patient will call their primary care physician within 24 hours to arrange follow-up and will return to the Emergency Department with any new, persistent or worsening symptoms. Please note, this clinical encounter is taking place during a federal and state health care emergency attributable to the novel Ofrrester Virus pandemic. The [place] of the Department of Health and Human Services has declared, pursuant to the Public Health Service Act 319F-3 (42 U.S.C. 247d-6d), that a covered persons activities related to medical countermeasures against COVID-19 will be immune from liability under Federal and State law. Discharge - Discharge Information Problems reviewed: Yes Clinical Impression/Diagnosis: Alcohol intoxication Qualifiers: Complication of substance-induced condition: uncomplicated Qualified Code(s): F10.920 - Alcohol use, unspecified with intoxication, uncomplicated Condition: Stable Disposition: HOME - Admission No - Follow up/Referral - Patient Discharge Instructions Patient Printed Discharge Instructions: DI for Alcohol Abuse - Post Discharge Activity
--- NOTE | 2019-12-12 21:13 | PDOC ---
Documentation entered by Erum Bell SCRIBE, acting as scribe for Sue Casanova MD. Sue Casanova MD: This documentation has been prepared by the Pebbles pereira Sydney, SCRIBE, under my direction and personally reviewed by me in its entirety. I confirm that the documentation accurately reflects all work, treatment, procedures, and medical decision making performed by me. Attending Attestation - Resident Resident Name: Stevenson Jiang - ED Attending Attestation I have performed the following: I have examined & evaluated the patient, The case was reviewed & discussed with the resident, I agree w/resident's findings & plan, Exceptions are as noted - HPI HPI: 12/12/19 21:05 Patient is a 64 year old male with a significant past medical history of mesothelioma, chronic back pain and ETOH abuse who presents to the ED, [facility]IB[facility], with ETOH intoxication. As per patient, he drank one pint of vodka today prior to his arrival to the ED. While in the ED, the patient complains of chronic back pain and requests a lidocaine patch. - Physicial Exam PE: 12/12/19 21:10 disheveled conversant 64 yo male presents with etoh intoxication head ncat abdomen protuberant skin warm and dry cvs [id number] neuro conversant but has AOB, sl slurred speech,moving all extremities - Medical Decision Making 12/13/19 02:06 imp etoh intox plan d/c home when safe Discharge - Discharge Information Problems reviewed: Yes Clinical Impression/Diagnosis: Alcohol intoxication Condition: Stable Disposition: HOME - Follow up/Referral - Patient Discharge Instructions Patient Printed Discharge Instructions: DI for Alcohol Abuse - Post Discharge Activity
== END 2019-12-13 06:16 | disposition home or self-care (01) ==
LOC: JER 17:26
DX: F10.920 Alcohol use, unspecified with intoxication, uncomplicated (principal)
CPT/HCPCS: 99282-25

== ENCOUNTER 2019-12-13 13:02 | Emergency (ER) | payer OTHER ==
--- NOTE | 2019-12-13 13:30 | PDOC ---
History of Present Illness - General Stated Complaint: SICK Time Seen by Provider: 12/13/19 13:20 History Source: Patient Exam Limitations: No Limitations - History of Present Illness Initial Comments: 12/13/19 13:40 64 yo male pmh alcohol abuse and mesothelioma, well known to this ED presents to the ED for change in his breathing. Pt states "I have lung cancer and cant breathe for a long time." Pt states there has been no recent change in breathing however states he called EMS for change in his breathing. Denies CP, changes in breathing on ambulation, cough, sputum production, abdominal pain, calf swelling, calf tenderness, recent surgeries, immobilization. States he did not drink today Past History - Medical History Allergies/Adverse Reactions: Allergies Allergy/AdvReac Type Severity Reaction Status Date / Time Fish Containing Products Allergy Mild Swelling Verified 12/12/19 17:38 No Known Drug Allergies Allergy Verified 12/12/19 17:38 Home Medications: Ambulatory Orders Ferrous Sulfate [Feosol] 325 mg PO BID 28 Days ud 10/27/19 Zinc Sulfate [Orazinc] 220 mg PO DAILY #14 capsule 10/27/19 Amlodipine Besylate [Norvasc -] 10 mg PO DAILY #30 tablet 11/16/19 Atorvastatin Ca [Lipitor] 40 mg PO HS #30 tablet 11/16/19 Potassium Chloride [K-Dur -] 20 meq PO BID 5 Days #10 tablet.er 11/16/19 Cyanocobalamin (Vitamin B-12) [Vitamin B-12] 1,000 mcg PO DAILY #30 capsule 11/29/19 Folic Acid 1 mg PO DAILY #30 tablet 11/29/19 Magnesium Oxide [Magnesium] 400 mg PO BID 3 Days #6 tablet 11/29/19 Multivitamin [Multiple Vitamins] 1 each PO DAILY #30 tablet 11/29/19 Potassium Chloride 40 meq PO DAILY 3 Days #6 tablet.er 11/29/19 Thiamine HCl [B-1] 100 mg PO DAILY #30 tablet 11/29/19 Anemia: No Asthma: No Cancer: Yes (mesothelioma lung cancer) Cardiac Disorders: No CVA: No COPD: No CHF: No DVT: No Dementia: No Diabetes: No Dialysis: No GI Disorders: No Disorders: No HTN: Yes (non compliant with meds.) Hypercholesterolemia: Yes Kidney Stones: No Liver Disease: Yes (ETOH abuse) Psychiatric Problems: Yes (ETOH abuse) Seizures: No Thyroid Disease: No Lung CA: Yes (Mesothelioma) - Surgical History Abdominal Surgery: No Appendectomy: No Cardiac Surgery: No Cholecystectomy: No Lung Surgery: No Neurologic Surgery: No Orthopedic Surgery: No - Reproductive History Testicular Surgery: No - Immunization History Td Vaccination: Yes TDAP Vaccination: Yes Immunization Up to Date: Yes - Psycho-Social/Smoking History Smoking Status: No Smoking History: Current some day smoker Have you smoked in the past 12 months: No Number of Cigarettes Smoked Daily: 6 If you are a former smoker, when did you quit?: 0 Cigars Per Day: 0 'Breaking Loose' booklet given: 09/22/17 Review of Systems - Review of Systems Constitutional: Yes: Symptoms Reported HEENTM: Yes: Symptoms Reported Respiratory: Yes: Symptoms reported Cardiac (ROS): Yes: Symptoms Reported ABD/GI: Yes: Symptoms Reported : Yes: Symptoms Reported Musculoskeletal: Yes: Symptoms Reported Integumentary: Yes: Symptoms Reported Neurological: Yes: Symptoms reported *Physical Exam - Physical Exam General Appearance: Yes: Nourished, Appropriately Dressed. No: Apparent Distress HEENT: positive: EOMI Neck: positive: Supple. negative: Carotid bruit Respiratory/Chest: positive: Lungs Clear, Normal Breath Sounds. negative: Respiratory Distress, Accessory Muscle Use, Rapid RR, Decreased Breath Sounds, Crackles, Rales, Rhonchi, Stridor, Wheezing Cardiovascular: positive: Regular Rhythm, Regular Rate, S1, S2. negative: Edema, JVD, Murmur Vascular Pulses: Dorsalis-Pedis (R): 4+, Doralis-Pedis (L): 4+ Gastrointestinal/Abdominal: positive: Flat, Soft. negative: Pulsatile Mass, Protuberent, Distended, Guarding, Rebound, Tenderness Musculoskeletal: negative: CVA Tenderness Extremity: positive: Normal Capillary Refill, Normal Inspection, Normal Range of Motion Integumentary: positive: Normal Color, Dry, Warm Neurologic: positive: Fully Oriented, Alert, Normal Mood/Affect, Normal Response Medical Decision Making - Medical Decision Making 12/13/19 13:51 64 yo male pmh alcohol abuse and mesothelioma, well known to this ED presents to the ED for change in his breathing. Pt states "I have lung cancer and cant breathe for a long time." Pt states there has been no recent change in breathing however states he called EMS for change in his breathing. Denies CP, changes in breathing on ambulation, cough, sputum production, abdominal pain, calf swelling, calf tenderness, recent surgeries, immobilization. States he did not drink today vitals WNL of past ER visits Pt talking in full sentences, unlabored, not tachypnec. Breath sounds clear No signs of withdrawl Pt is safe for DC home and encouraged to go to detox for self care Discharge - Discharge Information Problems reviewed: Yes Clinical Impression/Diagnosis: Alcohol intoxication Condition: Stable Disposition: HOME - Admission No - Follow up/Referral - Patient Discharge Instructions Patient Printed Discharge Instructions: DI for Shortness of Breath, How to Manage Shortness of Breath Additional Instructions: Please see your Primary Doctor and go to detox. Return to the ER for new or concerning symptoms. Thank you - Post Discharge Activity
[2019-12-13 13:32] VITALS: BP 97/56; PULSE 89; TEMP 97.9; BMI 35.2
--- NOTE | 2019-12-13 13:44 | PDOC ---
Attending Attestation - Resident Resident Name: Rusty Montgomery - ED Attending Attestation I have performed the following: I have examined & evaluated the patient, The case was reviewed & discussed with the resident, I agree w/resident's findings & plan, Exceptions are as noted - HPI HPI: 12/13/19 13:40 Agree with resident HPI - Physicial Exam PE: 12/13/19 13:41 Agree with resident exam - Medical Decision Making 12/13/19 13:41 64yo M hx etoh abuse well known to this ED presents for low back pain for many months, but states is currently at a 0/10. Pt disheveled, but otherwise well appearing in NAD Vitals stable (O2 sat 93% which is typical for pt) Pt requesting to sleep here Has no acute complaints, he is medically stable for DC I discussed the physical exam findings, ancillary test results and final diagnoses with the patient. I answered all of the patient's questions. The patient was satisfied with the care received and felt comfortable with the discharge plan and treatment plan. The patient will call their primary care physician within 24 hours to arrange follow-up and will return to the Emergency Department with any new, persistent or worsening symptoms. Discharge - Discharge Information Problems reviewed: Yes Clinical Impression/Diagnosis: Chronic back pain Disposition: HOME - Follow up/Referral - Patient Discharge Instructions Patient Printed Discharge Instructions: DI for Shortness of Breath, How to Manage Shortness of Breath Additional Instructions: Please see your Primary Doctor and go to detox. Return to the ER for new or concerning symptoms. Thank you - Post Discharge Activity
[2019-12-15] MEDS ORDERED: ACETAMINOPHEN 325 MG TABLET (FP) ONE (18:59)
[2019-12-15] MEDS ORDERED: LIDOCAINE 5% TOPICAL PATCH ONE (19:00)
== END 2019-12-13 13:53 | disposition home or self-care (01) ==
LOC: JER 13:02
DX: M54.9 Dorsalgia, unspecified (principal); G89.29 Other chronic pain
CPT/HCPCS: 99284-25

== ENCOUNTER 2019-12-13 20:22 | Emergency (ER) | payer OTHER ==
[2019-12-13 20:25] VITALS: TEMP 98; BMI 33.0
--- NOTE | 2019-12-13 20:36 | PDOC ---
Rapid Medical Evaluation Chief Complaint: Pain Time Seen by Provider: 12/13/19 20:36 Medical Evaluation: Allergies Allergy/AdvReac Type Severity Reaction Status Date / Time Fish Containing Products Allergy Mild Swelling Verified 12/13/19 20:25 No Known Drug Allergies Allergy Verified 12/13/19 20:25 Vital Signs Temp Pulse Resp BP Pulse Ox 98 F 73 18 109/68 94 L 12/13/19 20:23 12/13/19 20:23 12/13/19 20:23 12/13/19 20:23 12/13/19 20:23 12/13/19 20:39 64 year old undomiciled male BIB ambulance for knee pain. patient seen in this ER earlier and last night for alcohol intoxication and similar complaints. PE: patient alert ox3. disheveled t no slurred speech. no signs of trauma. A: knee pain Discharge Disposition - Diagnosis Chronic pain Qualifiers: Chronic pain type: other chronic pain Qualified Code(s): G89.29 - Other chronic pain Knee pain Qualifiers: Chronicity: unspecified Laterality: unspecified laterality Qualified Code(s): M25.569 - Pain in unspecified knee - Discharge Dispostion Last Admission D/C Date: 11/29/19 - Referrals - Patient Instructions - Post Discharge Activity
--- NOTE | 2019-12-13 20:54 | PDOC ---
*Physical Exam - Vital Signs Last Vital Signs Temp Pulse Resp BP Pulse Ox 98 F 73 18 109/68 94 L 12/13/19 20:23 12/13/19 20:23 12/13/19 20:23 12/13/19 20:23 12/13/19 20:23 Medical Decision Making - Medical Decision Making 12/13/19 20:54 Patient seen by the advanced practice provider under my supervision. Ancillary testing reviewed as necessary. I agree with plan as outlined by the advanced practice provider. Discharge - Discharge Information Problems reviewed: Yes Clinical Impression/Diagnosis: Alcohol abuse Chronic pain Qualifiers: Chronic pain type: other chronic pain Qualified Code(s): G89.29 - Other chronic pain Knee pain Qualifiers: Chronicity: unspecified Laterality: unspecified laterality Qualified Code(s): M25.569 - Pain in unspecified knee Condition: Stable Disposition: HOME - Follow up/Referral Referrals: Ang Hernandez DO [Staff Physician] - - Patient Discharge Instructions Patient Printed Discharge Instructions: DI for Alcohol Abuse - Post Discharge Activity
--- NOTE | 2019-12-13 21:38 | PDOC ---
History of Present Illness - General Chief Complaint: Pain Stated Complaint: INTOX Time Seen by Provider: 12/13/19 20:36 - History of Present Illness Initial Comments: 12/13/19 21:36 64-year-old male presents for bilateral knee pain Past History - Medical History Allergies/Adverse Reactions: Allergies Allergy/AdvReac Type Severity Reaction Status Date / Time Fish Containing Products Allergy Mild Swelling Verified 12/13/19 20:25 No Known Drug Allergies Allergy Verified 12/13/19 20:25 Home Medications: Ambulatory Orders Ferrous Sulfate [Feosol] 325 mg PO BID 28 Days ud 10/27/19 Zinc Sulfate [Orazinc] 220 mg PO DAILY #14 capsule 10/27/19 Amlodipine Besylate [Norvasc -] 10 mg PO DAILY #30 tablet 11/16/19 Atorvastatin Ca [Lipitor] 40 mg PO HS #30 tablet 11/16/19 Potassium Chloride [K-Dur -] 20 meq PO BID 5 Days #10 tablet.er 11/16/19 Cyanocobalamin (Vitamin B-12) [Vitamin B-12] 1,000 mcg PO DAILY #30 capsule 11/29/19 Folic Acid 1 mg PO DAILY #30 tablet 11/29/19 Magnesium Oxide [Magnesium] 400 mg PO BID 3 Days #6 tablet 11/29/19 Multivitamin [Multiple Vitamins] 1 each PO DAILY #30 tablet 11/29/19 Potassium Chloride 40 meq PO DAILY 3 Days #6 tablet.er 11/29/19 Thiamine HCl [B-1] 100 mg PO DAILY #30 tablet 11/29/19 Anemia: No Asthma: No Cancer: Yes (mesothelioma lung cancer) Cardiac Disorders: No CVA: No COPD: No CHF: No DVT: No Dementia: No Diabetes: No Dialysis: No GI Disorders: No Disorders: No HTN: Yes (non compliant with meds.) Hypercholesterolemia: Yes Kidney Stones: No Liver Disease: Yes (ETOH abuse) Psychiatric Problems: Yes (ETOH abuse) Seizures: No Thyroid Disease: No Lung CA: Yes (Mesothelioma) - Surgical History Abdominal Surgery: No Appendectomy: No Cardiac Surgery: No Cholecystectomy: No Lung Surgery: No Neurologic Surgery: No Orthopedic Surgery: No - Reproductive History Testicular Surgery: No - Immunization History Td Vaccination: Yes TDAP Vaccination: Yes Immunization Up to Date: Yes - Psycho-Social/Smoking History Smoking Status: No Smoking History: Never smoked Have you smoked in the past 12 months: No Number of Cigarettes Smoked Daily: 6 If you are a former smoker, when did you quit?: 0 Cigars Per Day: 0 'Breaking Loose' booklet given: 09/22/17 Review of Systems - Review of Systems Musculoskeletal: Yes: Joint Pain *Physical Exam - Vital Signs Last Vital Signs Temp Pulse Resp BP Pulse Ox 98 F 73 18 109/68 94 L 12/13/19 20:23 12/13/19 20:23 12/13/19 20:23 12/13/19 20:23 12/13/19 20:23 - Physical Exam 12/13/19 21:37 No gross deficits on examination patient bears weight and ambulatesNo evidence of instability ED Treatment Course - RADIOLOGY Radiology Studies Ordered: Category Date Time Status KNEE 3 POS-LEFT [RAD] Stat Radiology 12/13/19 20:50 Taken KNEE 3 POS-RIGHT [RAD] Stat Radiology 12/13/19 20:50 Taken Medical Decision Making - Medical Decision Making 12/13/19 21:37 Bilateral knee osteoarthritis weight-bear as tolerated follow-up with orthopedics 12/13/19 21:37 No fracture trauma or destructive process on radiograph today I have reviewed the pathophysiology with the patient. They are in agreement with the treatment plan all questions were answered to their satisfaction. Understanding for follow-up without fail was also conveyed to the patient. Again they are in agreement. Discharge - Discharge Information Problems reviewed: Yes Clinical Impression/Diagnosis: Chronic pain Qualifiers: Chronic pain type: other chronic pain Qualified Code(s): G89.29 - Other chronic pain Knee pain Qualifiers: Chronicity: unspecified Laterality: unspecified laterality Qualified Code(s): M25.569 - Pain in unspecified knee Condition: Stable Disposition: HOME - Admission No - Follow up/Referral Referrals: Ang Hernandez DO [Staff Physician] - - Patient Discharge Instructions - Post Discharge Activity
--- NOTE | 2019-12-13 22:38 | PDOC ---
*Physical Exam - Vital Signs Last Vital Signs Temp Pulse Resp BP Pulse Ox 98 F 73 18 109/68 94 L 12/13/19 20:23 12/13/19 20:23 12/13/19 20:23 12/13/19 20:23 12/13/19 20:23 - Physical Exam General Appearance: Yes: Disheveled HEENT: positive: Other (normocephalic) Neurologic: positive: Fully Oriented, Alert Medical Decision Making - Medical Decision Making 12/13/19 22:36 patient is daily alcohol abuse, undomiciled. will monitor overnight likely d/c in the AM after MTF 12/14/19 0600 patient alert awake. walked to the bathroom. d/urmila Discharge - Discharge Information Problems reviewed: Yes Clinical Impression/Diagnosis: Alcohol abuse Chronic pain Qualifiers: Chronic pain type: other chronic pain Qualified Code(s): G89.29 - Other chronic pain Knee pain Qualifiers: Chronicity: unspecified Laterality: unspecified laterality Qualified Code(s): M25.569 - Pain in unspecified knee Condition: Stable Disposition: HOME - Follow up/Referral Referrals: Ang Hernandez DO [Staff Physician] - - Patient Discharge Instructions Patient Printed Discharge Instructions: DI for Alcohol Abuse - Post Discharge Activity
[2019-12-14 02:18] VITALS: BP 110/62; PULSE 70
== END 2019-12-14 06:25 | disposition home or self-care (01) ==
LOC: JER 20:22
DX: M25.569 Pain in unspecified knee (principal); G89.29 Other chronic pain
CPT/HCPCS: 73562-TC-LT-FY; 73562-TC-RT-FY; 99283-25

== ENCOUNTER 2019-12-15 17:10 | Emergency (ER) | payer OTHER ==
--- NOTE | 2019-12-15 17:43 | PDOC ---
History of Present Illness - General Chief Complaint: Alcohol intoxication Stated Complaint: INTOXICATED Time Seen by Provider: 12/15/19 17:43 History Source: Patient Exam Limitations: Intoxication - History of Present Illness Initial Comments: 12/15/19 18:31 64 yo M w a hx of alcohol abuse, metastatic CA, chronic pain, well known to this ED, presents w worsening lower back pain and etoh intoxication. Requests lido patch, robaxin for back, and libirum. Denies fall, head trauma, fever, cough, chest/ABD pain, extremity numbness, still has intact urination and daily BM. Past History - Medical History Allergies/Adverse Reactions: Allergies Allergy/AdvReac Type Severity Reaction Status Date / Time Fish Containing Products Allergy Mild Swelling Verified 12/15/19 18:35 No Known Drug Allergies Allergy Verified 12/15/19 18:35 Home Medications: Ambulatory Orders Ferrous Sulfate [Feosol] 325 mg PO BID 28 Days ud 10/27/19 Zinc Sulfate [Orazinc] 220 mg PO DAILY #14 capsule 10/27/19 Amlodipine Besylate [Norvasc -] 10 mg PO DAILY #30 tablet 11/16/19 Atorvastatin Ca [Lipitor] 40 mg PO HS #30 tablet 11/16/19 Potassium Chloride [K-Dur -] 20 meq PO BID 5 Days #10 tablet.er 11/16/19 Cyanocobalamin (Vitamin B-12) [Vitamin B-12] 1,000 mcg PO DAILY #30 capsule 11/29/19 Folic Acid 1 mg PO DAILY #30 tablet 11/29/19 Magnesium Oxide [Magnesium] 400 mg PO BID 3 Days #6 tablet 11/29/19 Multivitamin [Multiple Vitamins] 1 each PO DAILY #30 tablet 11/29/19 Potassium Chloride 40 meq PO DAILY 3 Days #6 tablet.er 11/29/19 Thiamine HCl [B-1] 100 mg PO DAILY #30 tablet 11/29/19 Anemia: No Asthma: No Cancer: Yes (mesothelioma lung cancer) Cardiac Disorders: No CVA: No COPD: No CHF: No DVT: No Dementia: No Diabetes: No Dialysis: No GI Disorders: No Disorders: No HTN: Yes (non compliant with meds.) Hypercholesterolemia: Yes Kidney Stones: No Liver Disease: Yes (ETOH abuse) Psychiatric Problems: Yes (ETOH abuse) Seizures: No Thyroid Disease: No Lung CA: Yes (Mesothelioma) - Surgical History Abdominal Surgery: No Appendectomy: No Cardiac Surgery: No Cholecystectomy: No Lung Surgery: No Neurologic Surgery: No Orthopedic Surgery: No - Reproductive History Testicular Surgery: No - Immunization History Td Vaccination: Yes TDAP Vaccination: Yes Immunization Up to Date: Yes - Psycho-Social/Smoking History Smoking Status: No Smoking History: Never smoked Have you smoked in the past 12 months: No Number of Cigarettes Smoked Daily: 6 If you are a former smoker, when did you quit?: 0 Cigars Per Day: 0 'Breaking Loose' booklet given: 09/22/17 Review of Systems - Review of Systems Able to Perform ROS?: No (intoxicated) *Physical Exam - Physical Exam General Appearance: Yes: Nourished, Appropriately Dressed, Mild Distress HEENT: positive: EOMI, DOUGLAS, Normal Voice, Hearing Grossly Normal. negative: Scleral Icterus (R), Scleral Icterus (L) Neck: positive: Supple. negative: Tender, Rigid, Decreased range of motion (full) Respiratory/Chest: positive: Lungs Clear, Normal Breath Sounds. negative: Chest Tender, Respiratory Distress, Crackles, Rales, Rhonchi, Stridor, Wheezing Cardiovascular: positive: Regular Rhythm, S1, S2, Tachycardia. negative: Edema, Murmur Gastrointestinal/Abdominal: positive: Normal Bowel Sounds, Soft, Distended. negative: Tender Musculoskeletal: positive: Other (mild kareem lumbar tenderness) Extremity: positive: Pedal Edema (+1 kareem) Integumentary: positive: Normal Color, Warm Neurologic: positive: Alert, Motor Strength 5/5 (BLE), Disoriented (intoxicated), Other (full ROM BLE). negative: Numbness (no BLE numbness) Medical Decision Making - Medical Decision Making 12/15/19 19:11 64 yo M w a hx of alcohol abuse, metastatic CA, chronic pain, well known to this ED, presents w worsening lower back pain and etoh intoxication. Pain likely MSK. No evidence of withdrawal (no tremors, abd non tender) vs cauda equina (intact BLE strength, urinary/bowel mvmt) Given lido patch, tylenol Anticipate DC vs AMA - when clinically sober, stable gait Discharge - Discharge Information Problems reviewed: Yes Clinical Impression/Diagnosis: Lumbar back pain Alcohol intoxication Qualifiers: Complication of substance-induced condition: uncomplicated Qualified Code(s): F10.920 - Alcohol use, unspecified with intoxication, uncomplicated Condition: Stable - Follow up/Referral - Patient Discharge Instructions - Post Discharge Activity
[2019-12-15] MEDS ORDERED: LIDOCAINE 5% TOPICAL PATCH TP ONE (18:15)
[2019-12-15] MEDS ORDERED: ACETAMINOPHEN 500 MG TABLET (FP) PO ONE (18:15)
[2019-12-15 18:42] VITALS: TEMP 98.4; BMI 33.0
--- NOTE | 2019-12-15 19:39 | PDOC ---
*Physical Exam - Vital Signs Last Vital Signs Temp Pulse Resp BP Pulse Ox 98.4 F 109 H 18 90/45 L 99 12/15/19 18:38 12/15/19 18:38 12/15/19 18:38 12/15/19 18:38 12/15/19 18:42 ED Treatment Course - Medications Given in the ED: ED Medications Discontinued Medications Generic Name Dose Route Start Last Admin Trade Name Francisco Javier PRN Reason Stop Dose Admin Acetaminophen 975 mg 12/15/19 18:15 12/15/19 18:51 Tylenol - PO 12/15/19 18:16 975 mg ONCE ONE Administration Lidocaine 1 patch 12/15/19 18:15 12/15/19 18:50 Lidoderm Patch - TP 12/15/19 18:16 1 patch ONCE ONE Administration Medical Decision Making - Medical Decision Making Pt clinically sober, speaking in full sentences, no nystagmus or slurring. Pt tolerating PO intake in ED. Pt safe for d/c with PCP f/u. Strict return precautions. Pt does not wish to go to detox at this time. Advised to stop alcohol abuse. 12/16/19 05:58 Discharge - Discharge Information Problems reviewed: Yes Clinical Impression/Diagnosis: Lumbar back pain Alcohol intoxication Qualifiers: Complication of substance-induced condition: uncomplicated Qualified Code(s): F10.920 - Alcohol use, unspecified with intoxication, uncomplicated Condition: Improved Disposition: HOME - Admission No - Follow up/Referral - Patient Discharge Instructions - Post Discharge Activity
--- NOTE | 2019-12-15 19:51 | PDOC ---
Attending Attestation - Resident Resident Name: Bob Green - ED Attending Attestation I have performed the following: I have examined & evaluated the patient, The case was reviewed & discussed with the resident, I agree w/resident's findings & plan, Exceptions are as noted - HPI HPI: 12/15/19 19:48 64 yo male mult med problems well known to department, h/o etoh abuse and near daily visit, here today c/o incontinen feces and soiled clothes and back pain. requesting medication for back pain. no new weakness or numbness no other comlaints. - Physicial Exam PE: 12/15/19 19:49 awake alert lungs clear bilat heart rrr no mrg abd soft obese. ext wwp. clothes soiled. - Medical Decision Making 12/15/19 19:50 64 yo male h/o etoh abuse here with intoxication requestin food and lidoderm patch. given food. will reassess for sobriety. Discharge - Discharge Information Problems reviewed: Yes Clinical Impression/Diagnosis: Lumbar back pain Alcohol intoxication Qualifiers: Complication of substance-induced condition: uncomplicated Qualified Code(s): F10.920 - Alcohol use, unspecified with intoxication, uncomplicated Condition: Improved Disposition: HOME - Follow up/Referral - Patient Discharge Instructions - Post Discharge Activity
[2019-12-15] MEDS ORDERED: LIDOCAINE PATCH REMOVAL MC SCH (22:00)
[2019-12-16 03:25] VITALS: BP 149/82; PULSE 99
== END 2019-12-16 07:00 | disposition home or self-care (01) ==
LOC: JER 17:10
DX: M54.5 Low back pain (principal); F10.129 Alcohol abuse with intoxication, unspecified
CPT/HCPCS: 99283-25

== ENCOUNTER 2019-12-18 15:02 | Emergency (ER) | payer OTHER ==
[2019-12-18 15:22] VITALS: BMI 33.0
[2019-12-18] MEDS ORDERED: THIAMINE HCL 100 MG TABLET (FP) PO ONE (15:25)
[2019-12-18] MEDS ORDERED: FOLIC ACID 1 MG TABLET (FP) PO ONE (15:25)
[2019-12-18] MEDS ORDERED: LACTATED RINGERS SOLUTION 1000 ML INFUS.BAG IV ONE (15:25)
[2019-12-18] MEDS ORDERED: SODIUM CHLORIDE 0.9% 500 ML INFUS.BAG IV ONE (15:40)
--- NOTE | 2019-12-18 15:40 | PDOC ---
History of Present Illness - General Chief Complaint: Alcohol intoxication Stated Complaint: INTOX Time Seen by Provider: 12/18/19 15:24 History Source: Patient - History of Present Illness Initial Comments: 12/18/19 17:59 64M w/hx pulmonary HTN, chronic PEs, mesothelioma, EtOH use disorder p/w alcohol intoxication. History limited by intoxication. He denies any pain, recent injuries, trauma, fevers, chills, or weakness. He reports drinking outside today (temperate at time of writing - 93F) and feeling more fatigued than usual. Past History - Medical History Allergies/Adverse Reactions: Allergies Allergy/AdvReac Type Severity Reaction Status Date / Time Fish Containing Products Allergy Mild Swelling Verified 12/15/19 18:35 No Known Drug Allergies Allergy Verified 12/15/19 18:35 Home Medications: Ambulatory Orders Ferrous Sulfate [Feosol] 325 mg PO BID 28 Days ud 10/27/19 Zinc Sulfate [Orazinc] 220 mg PO DAILY #14 capsule 10/27/19 Amlodipine Besylate [Norvasc -] 10 mg PO DAILY #30 tablet 11/16/19 Atorvastatin Ca [Lipitor] 40 mg PO HS #30 tablet 11/16/19 Potassium Chloride [K-Dur -] 20 meq PO BID 5 Days #10 tablet.er 11/16/19 Cyanocobalamin (Vitamin B-12) [Vitamin B-12] 1,000 mcg PO DAILY #30 capsule 11/29/19 Folic Acid 1 mg PO DAILY #30 tablet 11/29/19 Magnesium Oxide [Magnesium] 400 mg PO BID 3 Days #6 tablet 11/29/19 Multivitamin [Multiple Vitamins] 1 each PO DAILY #30 tablet 11/29/19 Potassium Chloride 40 meq PO DAILY 3 Days #6 tablet.er 11/29/19 Thiamine HCl [B-1] 100 mg PO DAILY #30 tablet 11/29/19 Anemia: No Asthma: No Cancer: Yes (mesothelioma lung cancer) Cardiac Disorders: No CVA: No COPD: No CHF: No DVT: No Dementia: No Diabetes: No Dialysis: No GI Disorders: No Disorders: No HTN: Yes (non compliant with meds.) Hypercholesterolemia: Yes Kidney Stones: No Liver Disease: Yes (ETOH abuse) Psychiatric Problems: Yes (ETOH abuse) Seizures: No Thyroid Disease: No Lung CA: Yes (Mesothelioma) - Surgical History Abdominal Surgery: No Appendectomy: No Cardiac Surgery: No Cholecystectomy: No Lung Surgery: No Neurologic Surgery: No Orthopedic Surgery: No - Reproductive History Testicular Surgery: No - Immunization History Td Vaccination: Yes TDAP Vaccination: Yes Immunization Up to Date: Yes - Psycho-Social/Smoking History Smoking Status: No Smoking History: Never smoked Have you smoked in the past 12 months: No Number of Cigarettes Smoked Daily: 6 If you are a former smoker, when did you quit?: 0 Cigars Per Day: 0 Information on smoking cessation initiated: No 'Breaking Loose' booklet given: 09/22/17 - Substance Abuse Hx (Audit-C & DAST Scrn) How often the patient has a drink containing alcohol: 4 0r more times/wk Number of drinks the patient has on a typical day: 10 or more How often the patient has six or more drinks on one occasion: Daily or almost daily Score: In Men: 4 or > Positive; In Women: 3 or > Positive: 12 Screen Result (Pos requires Nsg. Audit-10AR): Positive In the last yr the pt used illegal drug/Rx for NonMed reason: No Score: Yes response is considered Positive: 0 Screen Result (Positive result requires Nsg. DAST-10): Negative Review of Systems - Review of Systems Able to Perform ROS?: No (Intoxication) *Physical Exam - Vital Signs Last Vital Signs Temp Pulse Resp BP Pulse Ox 98.6 F 97 H 16 92/46 L 95 12/18/19 15:14 12/18/19 15:14 12/18/19 15:14 12/18/19 15:14 12/18/19 15:14 - Physical Exam GENERAL: Intoxicated, unkempt. Awake, alert, in no acute distress HEAD: No signs of trauma, normocephalic, atraumatic EYES: PERRLA, EOMI, sclera anicteric, conjunctiva clear ENT: Auricles normal inspection, hearing grossly normal, nares patent, orophary nx clear without exudates. Moist mucosa NECK: Normal ROM, supple, no lymphadenopathy, JVD, or masses LUNGS: No distress, speaks full sentences, clear to auscultation bilaterally HEART: Regular rate and rhythm, normal S1 and S2, no murmurs, rubs or gallops, peripheral pulses normal and equal bilaterally. ABDOMEN: Soft, nontender, normoactive bowel sounds. No guarding, no rebound. No masses EXTREMITIES : Normal inspection, Normal range of motion, no edema. No clubbing or cyanosis NEUROLOGICAL: Cranial nerves II through XII grossly intact. Normal speech, no focal sensorimotor deficits SKIN: Warm, Dry, normal turgor, no rashes or lesions noted Medical Decision Making - Medical Decision Making 64M w/hx pulmonary HTN, mesothelioma p/w EtOH intoxication. Ddx heat exhaustion, dehydration. Plan: 1L LR Thiamine supplement Folate supplement Dispo: Discharge pending sobriety --- Patient unable to tolerate po medication. Plan for banana bag after LR finishes. --- Patient signed out during shift change Discharge - Discharge Information Problems reviewed: Yes Clinical Impression/Diagnosis: Alcohol intoxication Qualifiers: Complication of substance-induced condition: uncomplicated Qualified Code(s): F10.920 - Alcohol use, unspecified with intoxication, uncomplicated Heat exhaustion Qualifiers: Encounter type: initial encounter Qualified Code(s): T67.5XXA - Heat exhaustion, unspecified, initial encounter Condition: Improved Disposition: HOME - Admission No - Follow up/Referral - Patient Discharge Instructions Patient Printed Discharge Instructions: DI for Heat Exhaustion and Heat Stroke, DI for Alcohol Abuse Additional Instructions: You were seen in the ER today and heat exhaustion. You need to drink plenty of water and keep yourself hydrated. Alcohol can dehydrate you. Stay in shaded and cool areas. Come back to the ER if you have any pain, have difficulty breathing or if any new or concerning symptom develops. Thank you - Post Discharge Activity
[2019-12-18] MEDS ORDERED: FOLIC ACID INJECTION - 1 MG, THIAMINE HCL 100 MG, MULTIVIT INJECTION ADULT 10 ML in SOD... IVPB ONE (16:12)
--- NOTE | 2019-12-18 16:15 | PDOC ---
Documentation entered by Riddhi Paniagua SCRIBE, acting as scribe for Monica Suh MD. Monica Suh MD: This documentation has been prepared by the hollandibeSiva Ana, SCRIBE, under my direction and personally reviewed by me in its entirety. I confirm that the documentation accurately reflects all work, treatment, procedures, and medical decision making performed by me. Attending Attestation - Resident Resident Name: ConnorRon - ED Attending Attestation I have performed the following: I have examined & evaluated the patient, The case was reviewed & discussed with the resident, I agree w/resident's findings & plan, Exceptions are as noted - HPI HPI: 12/18/19 15:26 Patient is a 64 year old male with a significant past medical history of alcohol abuse, mesothelioma, HTN, HLD, and chronic back pain, who presents to the ED with alcohol intoxication. pt states its very hot outside, and he wasn't feeling good. denies any trauma. no co ingestants. Allergies: fish containing products; NKDA 12/18/19 16:13 - Physicial Exam PE: 12/18/19 16:14 awake alert . lungs clear bilat heart rrr no mrg abd soft nt nd ext wwp. no edema. no calf tenderenss. disheveled. - Medical Decision Making 12/18/19 16:15 64 yo male well known to myself and department here with alcohol intoxication. due to mildly low bp 97/60 , extreme heat outside with intox, given iv hydration. await sobriety and reassess. Discharge - Discharge Information Problems reviewed: Yes Clinical Impression/Diagnosis: Alcohol intoxication Heat exhaustion Qualifiers: Encounter type: initial encounter Qualified Code(s): T67.5XXA - Heat exhaustion, unspecified, initial encounter Condition: Improved Disposition: HOME - Follow up/Referral - Patient Discharge Instructions Patient Printed Discharge Instructions: DI for Heat Exhaustion and Heat Stroke, DI for Alcohol Abuse Additional Instructions: You were seen in the ER today and heat exhaustion. You need to drink plenty of water and keep yourself hydrated. Alcohol can dehydrate you. Stay in shaded and cool areas. Come back to the ER if you have any pain, have difficulty breathing or if any new or concerning symptom develops. Thank you - Post Discharge Activity
--- NOTE | 2019-12-19 03:22 | PDOC ---
*Physical Exam - Vital Signs Last Vital Signs Temp Pulse Resp BP Pulse Ox 98.6 F 50 L 16 120/69 98 12/18/19 15:14 12/18/19 22:14 12/18/19 15:14 12/18/19 22:14 12/18/19 22:14 ED Treatment Course - Medications Given in the ED: ED Medications Discontinued Medications Generic Name Dose Route Start Last Admin Trade Name Francisco Javier PRN Reason Stop Dose Admin Folic Acid 1 mg 12/18/19 15:25 12/18/19 16:42 Folic Acid - PO 12/18/19 15:26 Not Given ONCE ONE Folic Acid 1 mg/ Thiamine HCl 1,000 mls @ 125 mls/hr 12/18/19 16:12 12/18/19 17:20 100 mg/ Multivitamins/Minerals IVPB 12/19/19 00:11 125 mls/hr 10 ml/ Sodium Chloride ONCE ONE Administration Lactated Ringer's 1,000 ml 12/18/19 15:25 12/18/19 16:10 Lactated Ringers Solution IV 12/18/19 15:26 Not Given ONCE ONE Sodium Chloride 1,000 ml 12/18/19 15:40 12/18/19 15:40 Normal Saline - IV 12/18/19 15:41 1,000 ml ONCE ONE Administration Thiamine HCl 100 mg 12/18/19 15:25 12/18/19 16:43 Vitamin B1 - PO 12/18/19 15:26 Not Given ONCE ONE Medical Decision Making - Medical Decision Making 12/19/19 03:19 64Y M presenting to the ER for intoxication, not feeling well due to the heat. given banana bag. sleeping in stretcher comfortably in the hallway. vitals wnl. MTF, likely DC Discharge - Discharge Information Problems reviewed: Yes Clinical Impression/Diagnosis: Alcohol intoxication Qualifiers: Complication of substance-induced condition: uncomplicated Qualified Code(s): F10.920 - Alcohol use, unspecified with intoxication, uncomplicated Heat exhaustion Qualifiers: Encounter type: initial encounter Qualified Code(s): T67.5XXA - Heat exhaustion, unspecified, initial encounter Condition: Improved Disposition: HOME - Admission No - Follow up/Referral - Patient Discharge Instructions Patient Printed Discharge Instructions: DI for Alcohol Abuse, DI for Heat Exhaustion and Heat Stroke Additional Instructions: You were seen in the ER today and heat exhaustion. You need to drink plenty of water and keep yourself hydrated. Alcohol can dehydrate you. Stay in shaded and cool areas. Come back to the ER if you have any pain, have difficulty breathing or if any new or concerning symptom develops. Thank you - Post Discharge Activity
[2019-12-19 06:27] VITALS: BP 148/93; PULSE 92; TEMP 98.4
== END 2019-12-19 06:27 | disposition home or self-care (01) ==
LOC: JER 15:02
PROC: 3E033NZ Introduction of Analgesics, Hypnotics, Sedatives into Peripheral Vein, Percutaneous Approach (ICD-10-PCS; principal; 2019-12-18)
DX: F10.920 Alcohol use, unspecified with intoxication, uncomplicated (principal); T67.5XXA Heat exhaustion, unspecified, initial encounter
CPT/HCPCS: 99284-25

== ENCOUNTER 2019-12-19 18:02 | Emergency (ER) | payer OTHER ==
[2019-12-19 18:12] VITALS: BMI 33.0
[2019-12-19] MEDS ORDERED: LIDOCAINE 5% TOPICAL PATCH TP ONE (19:24)
--- NOTE | 2019-12-19 19:49 | PDOC ---
Attending Attestation - Resident Resident Name: Elizabeth West - ED Attending Attestation I have performed the following: I have examined & evaluated the patient, The case was reviewed & discussed with the resident, I agree w/resident's findings & plan - HPI HPI: 12/20/19 04:10 see resident hpi - Physicial Exam PE: 12/20/19 04:10 see resident exam - Medical Decision Making 12/20/19 04:11 64-year-old male well-known to this facility with intoxication and complaints of chronic back pain requesting a Lidoderm patch No new trauma or focal neurological findings We will plan for DC in the a.m. when sober Discharge - Discharge Information Problems reviewed: Yes Clinical Impression/Diagnosis: Alcohol use disorder Back pain Qualifiers: Back pain location: low back pain Chronicity: chronic Back pain laterality: unspecified Sciatica presence: without sciatica Qualified Code(s): M54.5 - Low back pain; G89.29 - Other chronic pain Condition: Good Disposition: HOME - Follow up/Referral - Patient Discharge Instructions Patient Printed Discharge Instructions: DI for Low Back Pain Additional Instructions: You were seen in the ER today for back pain. You were given a patch. I recommend taking Tylenol and/or ibuprofen for the pain as needed. You can go to [address] [place] [address] at 8am if you are interested in detox. Please return to the ER if you have worsening pain, have difficulty walking, hav e numbness or if any new or concerning symptom develops. Thank you - Post Discharge Activity
--- NOTE | 2019-12-19 19:50 | PDOC ---
History of Present Illness - General Chief Complaint: Back Pain Stated Complaint: BACK PAIN,INTOX Time Seen by Provider: 12/19/19 19:03 History Source: Patient Exam Limitations: No Limitations - History of Present Illness Initial Comments: 12/19/19 19:49 64y M well known to the department with PMH of alcohol use disorder, chronic back pain, thoracic compression fx, presenting to the ER for back pain. Pt states pain is chronic, feels similar to prior pain, no radiation to the legs, no numbness/tingling, weakness, no fevers, no injury, no falls. He states he wants a lidoderm patch. Denies drinking today. 12/20/19 04:11 Past History - Medical History Allergies/Adverse Reactions: Allergies Allergy/AdvReac Type Severity Reaction Status Date / Time Fish Containing Products Allergy Mild Swelling Verified 12/19/19 18:08 No Known Drug Allergies Allergy Verified 12/19/19 18:08 Home Medications: Ambulatory Orders Ferrous Sulfate [Feosol] 325 mg PO BID 28 Days ud 10/27/19 Zinc Sulfate [Orazinc] 220 mg PO DAILY #14 capsule 10/27/19 Amlodipine Besylate [Norvasc -] 10 mg PO DAILY #30 tablet 11/16/19 Atorvastatin Ca [Lipitor] 40 mg PO HS #30 tablet 11/16/19 Potassium Chloride [K-Dur -] 20 meq PO BID 5 Days #10 tablet.er 11/16/19 Cyanocobalamin (Vitamin B-12) [Vitamin B-12] 1,000 mcg PO DAILY #30 capsule 11/29/19 Folic Acid 1 mg PO DAILY #30 tablet 11/29/19 Magnesium Oxide [Magnesium] 400 mg PO BID 3 Days #6 tablet 11/29/19 Multivitamin [Multiple Vitamins] 1 each PO DAILY #30 tablet 11/29/19 Potassium Chloride 40 meq PO DAILY 3 Days #6 tablet.er 11/29/19 Thiamine HCl [B-1] 100 mg PO DAILY #30 tablet 11/29/19 Anemia: No Asthma: No Cancer: Yes (mesothelioma lung cancer) Cardiac Disorders: No CVA: No COPD: No CHF: No DVT: No Dementia: No Diabetes: No Dialysis: No GI Disorders: No Disorders: No HTN: Yes (non compliant with meds.) Hypercholesterolemia: Yes Kidney Stones: No Liver Disease: Yes (ETOH abuse) Psychiatric Problems: Yes (ETOH abuse) Seizures: No Thyroid Disease: No Lung CA: Yes (Mesothelioma) - Surgical History Abdominal Surgery: No Appendectomy: No Cardiac Surgery: No Cholecystectomy: No Lung Surgery: No Neurologic Surgery: No Orthopedic Surgery: No - Reproductive History Testicular Surgery: No - Immunization History Td Vaccination: Yes TDAP Vaccination: Yes Immunization Up to Date: Yes - Psycho-Social/Smoking History Smoking Status: No Smoking History: Never smoked Have you smoked in the past 12 months: No Number of Cigarettes Smoked Daily: 6 If you are a former smoker, when did you quit?: 0 Cigars Per Day: 0 'Breaking Loose' booklet given: 09/22/17 - Substance Abuse Hx (Audit-C & DAST Scrn) How often the patient has a drink containing alcohol: 4 0r more times/wk Number of drinks the patient has on a typical day: 7 to 9 How often the patient has six or more drinks on one occasion: Daily or almost daily Score: In Men: 4 or > Positive; In Women: 3 or > Positive: 11 Screen Result (Pos requires Nsg. Audit-10AR): Positive In the last yr the pt used illegal drug/Rx for NonMed reason: No Score: Yes response is considered Positive: 0 Screen Result (Positive result requires Nsg. DAST-10): Negative Review of Systems - Review of Systems Constitutional: No: Symptoms Reported HEENTM: No: Symptoms Reported Respiratory: No: Symptoms reported Cardiac (ROS): No: Symptoms Reported ABD/GI: No: Symptoms Reported Musculoskeletal: Yes: See HPI Integumentary: No: Symptoms Reported Neurological: No: Symptoms reported *Physical Exam - Vital Signs Last Vital Signs Temp Pulse Resp BP Pulse Ox 97.9 F 86 18 92/58 L 96 12/19/19 18:09 12/19/19 18:09 12/19/19 18:09 12/19/19 18:09 12/19/19 18:09 - Physical Exam 12/20/19 01:40 pt resting comfortably in wheelchair in hallway. General Appearance: Yes: Nourished, Appropriately Dressed. No: Apparent Distress HEENT: positive: EOMI, DOUGLAS. negative: Scleral Icterus (R), Scleral Icterus (L) Neck: positive: Trachea midline, Supple Respiratory/Chest: positive: Lungs Clear, Normal Breath Sounds. negative: Crackles, Rales, Rhonchi, Stridor, Wheezing Cardiovascular: positive: Regular Rhythm, Regular Rate Gastrointestinal/Abdominal: positive: Normal Bowel Sounds, Soft. negative: Tender Musculoskeletal: negative: CVA Tenderness, Decreased Range of Motion, Muscle Spasm, Vertebral Tenderness Extremity: positive: Normal Capillary Refill Integumentary: positive: Normal Color, Dry, Warm Neurologic: positive: repairer cylinder heads II-XII NML intact, Fully Oriented, Alert, Normal Mood/Affect, Normal Response, Motor Strength 10/17 Medical Decision Making - Medical Decision Making 12/20/19 01:41 64y M well known to department presenting to ER for back pain. Pt has chronic back pain, no change in intensity, no neurological deficits or signs of cord compression or spinal pathology. -lidoderm patch -likely discharge if ambulatory. Discharge - Discharge Information Problems reviewed: Yes Clinical Impression/Diagnosis: Back pain Qualifiers: Back pain location: low back pain Chronicity: chronic Back pain laterality: u nspecified Sciatica presence: without sciatica Qualified Code(s): M54.5 - Low back pain Condition: Good Disposition: HOME - Follow up/Referral - Patient Discharge Instructions Patient Printed Discharge Instructions: DI for Low Back Pain Additional Instructions: You were seen in the ER today for back pain. You were given a patch. I recommend taking Tylenol and/or ibuprofen for the pain as needed. You can go to [address] [place] [address] at 8am if you are interested in detox. Please return to the ER if you have worsening pain, have difficulty walking, have numbness or if any new or concerning symptom develops. Thank you - Post Discharge Activity
[2019-12-19] MEDS ORDERED: LIDOCAINE PATCH REMOVAL MC SCH (22:00)
[2019-12-20 05:45] VITALS: PULSE 86
[2019-12-20 05:55] VITALS: BP 118/87
[2019-12-20 05:56] VITALS: TEMP 98
== END 2019-12-20 05:57 | disposition home or self-care (01) ==
LOC: JER 18:02
DX: M54.5 Low back pain (principal)
CPT/HCPCS: 99283-25

== ENCOUNTER 2019-12-20 13:50 | Emergency (ER) | payer OTHER ==
[2019-12-20 13:58] VITALS: BP 108/68; PULSE 87; TEMP 98.6; BMI 40.3
[2019-12-20] MEDS ORDERED: FOLIC ACID INJECTION - 1 MG, THIAMINE HCL 100 MG, MULTIVIT INJECTION ADULT 10 ML in SOD... IVPB ONE (14:11)
[2019-12-20 15:42] LABS: BASO % 0.6 % (0-2.0); EOS % 2.5 % (0-4.5); HEMATOCRIT 31.4 % (35.4-49); HEMOGLOBIN 9.7 GM/dL (11.7-16.9); LYMPH % 23.8 % (8-40); MCH 26.7 pg (25.7-33.7); MCHC 30.9 g/dl (32.0-35.9); MEAN CELL VOLUME 86.4 fl (80-96); MEAN PLT VOLUME 7.1 fl (7.5-11.1); NEUT % 66.1 % (42.8-82.8); PLATELET COUNT 203 K/MM3 (134-434); RBC 3.64 M/mm3 (4.00-5.60); RDW 20.5 % (11.9-15.9); WHITE BLOOD COUNT 6.5 K/mm3 (4.0-10.0)
[2019-12-20 15:50] LABS: INR 1.07 (0.83-1.09); PROTHROMBIN TIME (PATIENT) 12.6 SEC (9.7-13.0)
[2019-12-20 15:53] LABS: ACTIVATED PTT 27.9 SECONDS (25.2-36.5)
--- NOTE | 2019-12-20 15:56 | PDOC ---
History of Present Illness - General Chief Complaint: Alcohol intoxication Stated Complaint: ALCOHOL INTOXICATION Time Seen by Provider: 12/20/19 14:08 - History of Present Illness Initial Comments: 12/20/19 15:55 64-year-old male comes in looking for food intoxicated no complaints Past History - Medical History Allergies/Adverse Reactions: Allergies Allergy/AdvReac Type Severity Reaction Status Date / Time Fish Containing Products Allergy Mild Swelling Verified 12/19/19 18:08 No Known Drug Allergies Allergy Verified 12/19/19 18:08 Home Medications: Ambulatory Orders Ferrous Sulfate [Feosol] 325 mg PO BID 28 Days ud 10/27/19 Zinc Sulfate [Orazinc] 220 mg PO DAILY #14 capsule 10/27/19 Amlodipine Besylate [Norvasc -] 10 mg PO DAILY #30 tablet 11/16/19 Atorvastatin Ca [Lipitor] 40 mg PO HS #30 tablet 11/16/19 Potassium Chloride [K-Dur -] 20 meq PO BID 5 Days #10 tablet.er 11/16/19 Cyanocobalamin (Vitamin B-12) [Vitamin B-12] 1,000 mcg PO DAILY #30 capsule 11/29/19 Folic Acid 1 mg PO DAILY #30 tablet 11/29/19 Magnesium Oxide [Magnesium] 400 mg PO BID 3 Days #6 tablet 11/29/19 Multivitamin [Multiple Vitamins] 1 each PO DAILY #30 tablet 11/29/19 Potassium Chloride 40 meq PO DAILY 3 Days #6 tablet.er 11/29/19 Thiamine HCl [B-1] 100 mg PO DAILY #30 tablet 11/29/19 Anemia: No Asthma: No Cancer: Yes (mesothelioma lung cancer) Cardiac Disorders: No CVA: No COPD: No CHF: No DVT: No Dementia: No Diabetes: No Dialysis: No GI Disorders: No Disorders: No HTN: Yes (non compliant with meds.) Hypercholesterolemia: Yes Kidney Stones: No Liver Disease: Yes (ETOH abuse) Psychiatric Problems: Yes (ETOH abuse) Seizures: No Thyroid Disease: No Lung CA: Yes (Mesothelioma) - Surgical History Abdominal Surgery: No Appendectomy: No Cardiac Surgery: No Cholecystectomy: No Lung Surgery: No Neurologic Surgery: No Orthopedic Surgery: No - Reproductive History Testicular Surgery: No - Immunization History Td Vaccination: Yes TDAP Vaccination: Yes Immunization Up to Date: Yes - Psycho-Social/Smoking History Smoking Status: No Smoking History: Unknown if ever smoked Have you smoked in the past 12 months: No Number of Cigarettes Smoked Daily: 6 If you are a former smoker, when did you quit?: 0 Cigars Per Day: 0 Information on smoking cessation initiated: No 'Breaking Loose' booklet given: 09/22/17 - Substance Abuse Hx (Audit-C & DAST Scrn) How often the patient has a drink containing alcohol: 4 0r more times/wk Number of drinks the patient has on a typical day: 3 or 4 How often the patient has six or more drinks on one occasion: Daily or almost daily Score: In Men: 4 or > Positive; In Women: 3 or > Positive: 9 Screen Result (Pos requires Nsg. Audit-10AR): Positive In the last yr the pt used illegal drug/Rx for NonMed reason: No Score: Yes response is considered Positive: 0 Screen Result (Positive result requires Nsg. DAST-10): Negative Review of Systems - Review of Systems Constitutional: No: Fever ABD/GI: No: Nausea *Physical Exam - Vital Signs Last Vital Signs Temp Pulse Resp BP Pulse Ox 98.6 F 87 16 108/68 98 12/20/19 13:55 12/20/19 13:55 12/20/19 13:55 12/20/19 13:55 12/20/19 13:55 - Physical Exam General Appearance: Yes: Disheveled. No: Apparent Distress HEENT: positive: Normal ENT Inspection Neck: positive: Trachea midline, Supple Respiratory/Chest: negative: Respiratory Distress Extremity: positive: Normal Inspection Integumentary: positive: Normal Color Neurologic: positive: Fully Oriented ED Treatment Course - LABORATORY CBC & Chemistry Diagram: 12/20/19 15:20 12/20/19 15:20 - ADDITIONAL ORDERS Additional order review: Laboratory Results 12/20/19 15:20 PT with INR 12.60 INR 1.07 PTT (Actin FS) 27.9 12/20/19 15:20 RBC 3.64 L MCV 86.4 MCHC 30.9 L RDW 20.5 H MPV 7.1 L Neutrophils % 66.1 Lymphocytes % 23.8 Monocytes % 7.0 Eosinophils % 2.5 Basophils % 0.6 Medical Decision Making - Medical Decision Making 12/20/19 15:56 Patient eloped when he was given a tray of food Discharge - Discharge Information Problems reviewed: Yes Clinical Impression/Diagnosis: Homelessness, Intoxication Condition: Stable Disposition: ELOPED - Admission No - Follow up/Referral - Patient Discharge Instructions - Post Discharge Activity
[2019-12-20 16:11] LABS: ALBUMIN 2.9 g/dl (3.4-5.0); BILIRUBIN,TOTAL 0.4 mg/dL (0.2-1); BLOOD UREA NITROGEN 6.9 mg/dL (7-18); CREATININE 0.5 mg/dL (0.55-1.3); TOT PROT 6.1 g/dl (6.4-8.2)
[2019-12-20 16:28] LABS: POTASSIUM 2.6 mmol/L (3.5-5.1)
[2019-12-20 18:16] LABS: ANISOCYTOSIS 1+; MACROCYTOSIS 0; PLATELET ESTIMATE NORMAL; TEAR DROP CELLS 1+
== END 2019-12-20 15:52 | disposition left against medical advice (07) ==
LOC: JER 13:50
PROC: 3E033NZ Introduction of Analgesics, Hypnotics, Sedatives into Peripheral Vein, Percutaneous Approach (ICD-10-PCS; principal; 2019-12-20)
DX: F10.920 Alcohol use, unspecified with intoxication, uncomplicated (principal)
CPT/HCPCS: 36415; 80053; 80307; 83690; 85025; 85610; 85730; 99285-25

== ENCOUNTER 2019-12-21 13:08 | Emergency (ER) | payer OTHER ==
[2019-12-21 13:34] VITALS: BP 105/52; PULSE 101; TEMP 98.8; BMI 33.0
--- NOTE | 2019-12-21 19:42 | PDOC ---
History of Present Illness - General Chief Complaint: Alcohol intoxication Stated Complaint: INTOX Time Seen by Provider: 12/21/19 13:25 - History of Present Illness Initial Comments: 12/21/19 19:41 64-year-old Male presents for acute intoxication and back pain Past History - Medical History Allergies/Adverse Reactions: Allergies Allergy/AdvReac Type Severity Reaction Status Date / Time Fish Containing Products Allergy Mild Swelling Verified 12/21/19 13:18 No Known Drug Allergies Allergy Verified 12/21/19 13:18 Home Medications: Ambulatory Orders Ferrous Sulfate [Feosol] 325 mg PO BID 28 Days ud 10/27/19 Zinc Sulfate [Orazinc] 220 mg PO DAILY #14 capsule 10/27/19 Amlodipine Besylate [Norvasc -] 10 mg PO DAILY #30 tablet 11/16/19 Atorvastatin Ca [Lipitor] 40 mg PO HS #30 tablet 11/16/19 Potassium Chloride [K-Dur -] 20 meq PO BID 5 Days #10 tablet.er 11/16/19 Cyanocobalamin (Vitamin B-12) [Vitamin B-12] 1,000 mcg PO DAILY #30 capsule 11/29/19 Folic Acid 1 mg PO DAILY #30 tablet 11/29/19 Magnesium Oxide [Magnesium] 400 mg PO BID 3 Days #6 tablet 11/29/19 Multivitamin [Multiple Vitamins] 1 each PO DAILY #30 tablet 11/29/19 Potassium Chloride 40 meq PO DAILY 3 Days #6 tablet.er 11/29/19 Thiamine HCl [B-1] 100 mg PO DAILY #30 tablet 11/29/19 Anemia: No Asthma: No Cancer: Yes (mesothelioma lung cancer) Cardiac Disorders: No CVA: No COPD: No CHF: No DVT: No Dementia: No Diabetes: No Dialysis: No GI Disorders: No Disorders: No HTN: Yes (non compliant with meds.) Hypercholesterolemia: Yes Kidney Stones: No Liver Disease: Yes (ETOH abuse) Psychiatric Problems: Yes (ETOH abuse) Seizures: No Thyroid Disease: No Lung CA: Yes (Mesothelioma) - Surgical History Abdominal Surgery: No Appendectomy: No Cardiac Surgery: No Cholecystectomy: No Lung Surgery: No Neurologic Surgery: No Orthopedic Surgery: No - Reproductive History Testicular Surgery: No - Immunization History Td Vaccination: Yes TDAP Vaccination: Yes Immunization Up to Date: Yes - Psycho-Social/Smoking History Smoking Status: No Smoking History: Never smoked Have you smoked in the past 12 months: No Number of Cigarettes Smoked Daily: 6 If you are a former smoker, when did you quit?: 0 Cigars Per Day: 0 'Breaking Loose' booklet given: 09/22/17 - Substance Abuse Hx (Audit-C & DAST Scrn) How often the patient has a drink containing alcohol: 4 0r more times/wk How often the patient has six or more drinks on one occasion: Daily or almost daily Score: In Men: 4 or > Positive; In Women: 3 or > Positive: 8 Screen Result (Pos requires Nsg. Audit-10AR): Positive Review of Systems - Review of Systems Able to Perform ROS?: Yes Cardiac (ROS): No: Chest Pain ABD/GI: No: Nausea, Vomiting Musculoskeletal: Yes: Back Pain *Physical Exam - Vital Signs Last Vital Signs Temp Pulse Resp BP Pulse Ox 98.8 F 101 H 18 105/52 L 94 L 12/21/19 13:16 12/21/19 13:16 12/21/19 13:16 12/21/19 13:16 12/21/19 13:16 - Physical Exam General Appearance: Yes: Disheveled. No: Apparent Distress HEENT: positive: Symmetrical Neck: positive: Supple Respiratory/Chest: negative: Respiratory Distress Musculoskeletal: positive: Normal Inspection Extremity: positive: Normal Inspection Integumentary: positive: Normal Color Neurologic: positive: Alert Medical Decision Making - Medical Decision Making 12/21/19 19:42 Patient eloped from the emergency room refused all laboratory work and blood work. Discharge - Discharge Information Problems reviewed: Yes Clinical Impression/Diagnosis: Eloped from emergency department Disposition: ELOPED - Admission No - Follow up/Referral - Patient Discharge Instructions - Post Discharge Activity
== END 2019-12-21 19:12 | disposition left against medical advice (07) ==
LOC: JER 13:08
DX: F10.929 Alcohol use, unspecified with intoxication, unspecified (principal); M54.9 Dorsalgia, unspecified
CPT/HCPCS: 99283-25

== ENCOUNTER 2019-12-23 17:02 | Emergency (ER) | payer OTHER ==
[2019-12-23 17:22] VITALS: BMI 31.6
--- NOTE | 2019-12-23 17:22 | PDOC ---
Rapid Medical Evaluation Time Seen by Provider: 12/23/19 17:18 Medical Evaluation: Allergies Allergy/AdvReac Type Severity Reaction Status Date / Time Fish Containing Products Allergy Mild Swelling Verified 12/21/19 13:18 No Known Drug Allergies Allergy Verified 12/21/19 13:18 12/23/19 17:20 CC: public intox, pants down on the ground, pt has no complaints Exam: Intoxicated, vss Plan: observe Discharge Disposition - Diagnosis Alcohol intoxication - Referrals - Patient Instructions - Post Discharge Activity
--- NOTE | 2019-12-23 17:39 | PDOC ---
History of Present Illness - General Chief Complaint: Alcohol intoxication Stated Complaint: INTOXICATED Time Seen by Provider: 12/23/19 17:18 History Source: Patient, Other (ems) Past History - Medical History Allergies/Adverse Reactions: Allergies Allergy/AdvReac Type Severity Reaction Status Date / Time Fish Containing Products Allergy Mild Swelling Verified 12/26/19 21:41 No Known Drug Allergies Allergy Verified 12/26/19 21:41 Home Medications: Ambulatory Orders NK [No Known Home Medication] 12/23/19 Anemia: No Asthma: No Cancer: Yes (mesothelioma lung cancer) Cardiac Disorders: No CVA: No COPD: No CHF: No DVT: No Dementia: No Diabetes: No Dialysis: No GI Disorders: No Disorders: No HTN: Yes (non compliant with meds.) Hypercholesterolemia: Yes Kidney Stones: No Liver Disease: Yes (ETOH abuse) Psychiatric Problems: Yes (ETOH abuse) Seizures: No Thyroid Disease: No Lung CA: Yes (Mesothelioma) - Surgical History Abdominal Surgery: No Appendectomy: No Cardiac Surgery: No Cholecystectomy: No Lung Surgery: No Neurologic Surgery: No Orthopedic Surgery: No - Reproductive History Testicular Surgery: No - Immunization History Td Vaccination: Yes TDAP Vaccination: Yes Immunization Up to Date: Yes - Psycho-Social/Smoking History Smoking Status: No Smoking History: Former smoker Have you smoked in the past 12 months: No Number of Cigarettes Smoked Daily: 6 If you are a former smoker, when did you quit?: 0 Cigars Per Day: 0 Information on smoking cessation initiated: No 'Breaking Loose' booklet given: 09/22/17 - Substance Abuse Hx (Audit-C & DAST Scrn) How often the patient has a drink containing alcohol: 4 0r more times/wk Number of drinks the patient has on a typical day: 5 or 6 How often the patient has six or more drinks on one occasion: Daily or almost daily Score: In Men: 4 or > Positive; In Women: 3 or > Positive: 10 Screen Result (Pos requires Nsg. Audit-10AR): Positive In the last yr the pt used illegal drug/Rx for NonMed reason: No Score: Yes response is considered Positive: 0 Screen Result (Positive result requires Nsg. DAST-10): Negative Review of Systems - Review of Systems Constitutional: No: Fever Respiratory: No: Cough ABD/GI: No: Diarrhea, Nausea, Vomiting, Abdominal cramping : No: Dysuria, Flank Pain, Hematuria Musculoskeletal: No: Back Pain Neurological: No: Headache, Dizziness *Physical Exam - Vital Signs Last Vital Signs Temp Pulse Resp BP Pulse Ox 97.9 F 75 18 124/75 100 12/23/19 17:20 12/23/19 17:20 12/23/19 17:20 12/23/19 17:20 12/23/19 17:20 - Physical Exam General Appearance: Yes: Appropriately Dressed. No: Apparent Distress HEENT: positive: Normal Voice Neck: positive: Supple Medical Decision Making - Medical Decision Making 12/23/19 17:36 64 yo male, well known to [facility] 2/2 numerous ER visits for ETOH abuse and malingering, most of time ended up eloping after sobering up, BIB EMS after pt was found publicly intoxicated w/ pants down in the bushes. Pt has no medical complaints at this time. Pt also has h/o chronic LBP, mesothelioma, HTN and HLD see exam ETOH intox Stable No e/o trauma -sobriety -watch for e/o withdrawal 12/23/19 20:50 Remains stable. Seen eating tray of food earlier. Sleeping in ED at this time Discharge - Discharge Information Problems reviewed: Yes Clinical Impression/Diagnosis: Alcohol intoxication Qualifiers: Complication of substance-induced condition: uncomplicated Qualified Code(s): F10.920 - Alcohol use, unspecified with intoxication, uncomplicated Condition: Improved Disposition: HOME - Follow up/Referral - Patient Discharge Instructions Patient Printed Discharge Instructions: DI for Alcohol Abuse Additional Instructions: You came into the emergency department with intoxication. If you are interested in Detox, you can go to [facility] located on [address] [place] [address] in the morning starting at 8AM. Immediate medical attention is required if you have: a seizure or develop tremors or hallucinations and do not have access to alcohol, vomiting, chest pain, shortness of breath, abdominal pain, thoughts of self-harm, or an other new or concerning symptoms. If you think you are having an emergency, call for emergency medical services or present to the emergency department right away. - Post Discharge Activity
--- NOTE | 2019-12-23 23:19 | PDOC ---
*Physical Exam - Vital Signs Last Vital Signs Temp Pulse Resp BP Pulse Ox 97.9 F 75 18 124/75 99 12/23/19 17:20 12/23/19 17:20 12/23/19 17:20 12/23/19 17:20 12/23/19 19:35 <Fabiana Munguia - Last Filed: 12/24/19 05:10> - Vital Signs Last Vital Signs Temp Pulse Resp BP Pulse Ox 98.6 F 89 16 117/76 95 12/23/19 23:53 12/24/19 02:00 12/24/19 02:00 12/24/19 02:00 12/24/19 02:00 <Lorri Kumar - Last Filed: 12/24/19 05:34> Medical Decision Making - Medical Decision Making Patient signed out by APPLE Arreola 64yo M with PMH of alcoholism, chronic back pain, mesothelioma BIBEMS for intoxication Initial Vital Signs Temp Pulse Resp BP Pulse Ox 97.9 F 75 18 124/75 100 12/23/19 17:20 12/23/19 17:20 12/23/19 17:20 12/23/19 17:20 12/23/19 17:20 VSS Patient sleeping in stretcher Pending clinical sobriety Will reassess 12/23/19 23:18 Patient is A&Ox3 Ambulating at baseline Non-slurred speech Return precautions Stable for discharge 12/24/19 05:10 <Fabiana Munguia - Last Filed: 12/24/19 05:10> - Medical Decision Making 12/24/19 05:34 Pt alert and awake and he will be discharged when the sun rises. Pt agrees to leave <Lorri Kumar - Last Filed: 12/24/19 05:34> Discharge - Discharge Information Problems reviewed: Yes <Fabiana Munguia - Last Filed: 12/24/19 05:10> <Lorri Kumar - Last Filed: 12/24/19 05:34> - Discharge Information Clinical Impression/Diagnosis: Alcohol intoxication Qualifiers: Complication of substance-induced condition: uncomplicated Qualified Code(s): F10.920 - Alcohol use, unspecified with intoxication, uncomplicated Condition: Improved Disposition: HOME - Patient Discharge Instructions Patient Printed Discharge Instructions: DI for Alcohol Abuse Additional Instructions: You came into the emergency department with intoxication. If you are interested in Detox, you can go to [facility] located on [address] [place] [address] in the morning starting at 8AM. Immediate medical attention is required if you have: a seizure or develop tremors or hallucinations and do not have access to alcohol, vomiting, chest pain, shortness of breath, abdominal pain, thoughts of self-harm, or an other new or concerning symptoms. If you think you are having an emergency, call for emergency medical services or present to the emergency department right away.
[2019-12-23 23:54] VITALS: TEMP 98.6
[2019-12-24 06:50] VITALS: BP 113/76; PULSE 83
== END 2019-12-24 05:53 | disposition home or self-care (01) ==
LOC: JER 17:02
DX: F10.920 Alcohol use, unspecified with intoxication, uncomplicated (principal)
CPT/HCPCS: 99283-25

== ENCOUNTER 2019-12-24 12:29 | Emergency (ER) | payer OTHER ==
[2019-12-24 13:20] VITALS: BMI 32.3
--- NOTE | 2019-12-24 14:19 | PDOC ---
History of Present Illness - General Chief Complaint: Back Pain Stated Complaint: BACK PAIN Time Seen by Provider: 12/24/19 13:57 History Source: Patient Exam Limitations: No Limitations - History of Present Illness Initial Comments: 12/24/19 14:13 Patient is a 64-year-old male with history of mesothelioma, A. fib, chronic back pain, EtOH abuse who presents to the ED after a bystander called EMS. The patient denies any complaints at this time. He states he is just hungry. The patient is intoxicated but he is speaking in full and complete sentences. The patient states nothing is bothering him today and "if he is alive, he is doing well". The patient states someone called EMS and he was not complaining of anything when they called. Past History - Medical History Allergies/Adverse Reactions: Allergies Allergy/AdvReac Type Severity Reaction Status Date / Time Fish Containing Products Allergy Mild Swelling Verified 12/24/19 12:50 No Known Drug Allergies Allergy Verified 12/24/19 12:50 Home Medications: Ambulatory Orders NK [No Known Home Medication] 12/23/19 Anemia: No Asthma: No Cancer: Yes (mesothelioma lung cancer) Cardiac Disorders: No CVA: No COPD: No CHF: No DVT: No Dementia: No Diabetes: No Dialysis: No GI Disorders: No Disorders: No HTN: Yes (non compliant with meds.) Hypercholesterolemia: Yes Kidney Stones: No Liver Disease: Yes (ETOH abuse) Psychiatric Problems: Yes (ETOH abuse) Seizures: No Thyroid Disease: No Lung CA: Yes (Mesothelioma) - Surgical History Abdominal Surgery: No Appendectomy: No Cardiac Surgery: No Cholecystectomy: No Lung Surgery: No Neurologic Surgery: No Orthopedic Surgery: No - Reproductive History Testicular Surgery: No - Immunization History Td Vaccination: Yes TDAP Vaccination: Yes Immunization Up to Date: Yes - Psycho-Social/Smoking History Smoking Status: No Smoking History: Never smoked Have you smoked in the past 12 months: No Number of Cigarettes Smoked Daily: 6 If you are a former smoker, when did you quit?: 0 Cigars Per Day: 0 'Breaking Loose' booklet given: 09/22/17 - Substance Abuse Hx (Audit-C & DAST Scrn) How often the patient has a drink containing alcohol: Never Score: In Men: 4 or > Positive; In Women: 3 or > Positive: 0 Screen Result (Pos requires Nsg. Audit-10AR): Negative In the last yr the pt used illegal drug/Rx for NonMed reason: No Score: Yes response is considered Positive: 0 Screen Result (Positive result requires Nsg. DAST-10): Negative Review of Systems - Review of Systems Comments:: 12/24/19 14:15 - Review of Systems Able to Perform ROS?: Yes Constitutional: No: Fever, Chills, Loss of Appetite, Night Sweats, Weakness HEENTM: No: Eye Pain, Vision changes, Ear Pain, Throat Pain, Throat Swelling, Mouth Pain, Difficulty Swallowing Respiratory: No: Cough, Shortness of Breath, Wheezing, Sputum Production Cardiac (ROS): No: Chest Pain, Chest Tightness, Palpitations, Irregular Heart Beat, Edema ABD/GI: No: Nausea, Vomiting, Abdominal Pain, Diarrhea : No Dysuria, No Hematuria, No Frequency, No Urgency, No Vaginal Discharge/Pain, No Penile Discharge/Pain Musculoskeletal: No: Muscle Pain, Back Pain, Joint Pain, Muscle Weakness, Neck Pain Integumentary: No: Lesions, Rash Psych: positive: etoh intoxication Neurological: No: Headache, Numbness, Tingling, Weakness, Speech Difficulties *Physical Exam - Vital Signs Last Vital Signs Temp Pulse Resp BP Pulse Ox 98.0 F 86 18 139/73 100 12/24/19 12:30 12/24/19 12:30 12/24/19 12:30 12/24/19 12:30 12/24/19 12:30 - Physical Exam 12/24/19 14:16 - Physical Exam General Appearance: Nourished, Appropriately Dressed, No Distress HEENT: EOMI, Normal Voice, Hearing Grossly Normal Neck: Supple, No Lymphadenopathy (R), No Lymphadenopathy (L), No Rigidity, No Decreased range of motion Respiratory/Chest: Normal Breath Sounds. No Respiratory Distress, No Accessory Muscle Use Cardiovascular: Regular Rhythm, Regular Rate, S1, S2 Gastrointestinal/Abdominal: Normal Bowel Sounds, Soft. Non-tender, No Guarding, No Rebound, No Rigidity Musculoskeletal: Normal Inspection. No Decreased Range of Motion Extremity: Normal Capillary Refill, Normal Inspection Integumentary: Normal Color, Dry. 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 Plan: The patient is speaking in full and complete sentences and is clinically sober. He is requesting something to eat, and a food tray has been ordered. We will observe the patient until he is stable for discharge. 12/24/19 14:59 Pt eating a meal currently and feeling well. 12/24/19 17:08 Pt is resting comfortably on the stretcher without any complaints. He continues to speak in full sentences. 12/24/19 17:57 The patient is speaking in full and complete sentences. He is clinically sober and stable for discharge. He can follow-up with his primary doctor within 1 to 2 days for repeat evaluation. Discharge - Discharge Information Problems reviewed: Yes Clinical Impression/Diagnosis: Alcohol intoxication Qualifiers: Complication of substance-induced condition: uncomplicated Qualified Code(s): F10.920 - Alcohol use, unspecified with intoxication, uncomplicated Condition: Stable Disposition: HOME - Follow up/Referral Referrals: Lily Cornejo [Primary Care Provider] - 2 Days - Patient Discharge Instructions Patient Printed Discharge Instructions: DI for Alcohol Abuse Additional Instructions: Get plenty of rest and drink plenty of water. If you want to consider detox you can follow-up at [facility] for further treatment. - Post Discharge Activity
[2019-12-24 17:17] VITALS: BP 126/78; PULSE 76; TEMP 98.2
== END 2019-12-24 18:14 | disposition home or self-care (01) ==
LOC: JER 12:29
DX: F10.129 Alcohol abuse with intoxication, unspecified (principal)
CPT/HCPCS: 99282-25

== ENCOUNTER 2019-12-25 15:49 | Emergency (ER) | payer OTHER ==
--- NOTE | 2019-12-25 16:06 | PDOC ---
Rapid Medical Evaluation Time Seen by Provider: 12/25/19 15:51 Medical Evaluation: Allergies Allergy/AdvReac Type Severity Reaction Status Date / Time Fish Containing Products Allergy Mild Swelling Verified 12/24/19 12:50 No Known Drug Allergies Allergy Verified 12/24/19 12:50 12/25/19 16:05 I performed a brief in-person evaluation of this patient. Pt brought to ED by EMS for being intoxicated. The patient states he is very upset today because today is the day his son . He denies any complaints otherwise. Pertinent physical exam findings: slurred speech, but speaking in full and complete sentences. etoh on breath I have ordered the following: deferred Patient to proceed to ED for further evaluation. Discharge Disposition - Diagnosis Alcohol intoxication - Discharge Dispostion Last Admission D/C Date: 11/29/19 - Referrals - Patient Instructions - Post Discharge Activity
[2019-12-25 16:13] VITALS: BMI 34.0
--- NOTE | 2019-12-25 18:17 | PDOC ---
Attending Attestation - Resident Resident Name: Mamadou Lauren - ED Attending Attestation I have performed the following: I have examined & evaluated the patient, The case was reviewed & discussed with the resident, I agree w/resident's findings & plan - HPI HPI: 12/25/19 18:15 64M well known to the ED w/hx HTN (not on meds), mesothelioma, EtOH use disorder, chronic back pain p/w alcohol intoxication and chronic back pain, found on the streets; pt is also upset today because its the anniversary of his sons . - Physicial Exam PE: 12/25/19 18:15 Agree with the resident's HPI and PE as documented in the electronic medical record. NAD, disheveled, malodorous. sleeping. when awake, slurs speech. EOMI, PERRL. nl conjunctiva, anicteric; neck supple. no respiratory distress. abdomen soft nontender. obese. DICKEY x4, no focal neuro deficits. No peripheral edema. normal color for ethnicity, WWP. 12/25/19 18:16 - Medical Decision Making 12/25/19 18:17 Vital Signs Temp Pulse Resp BP Pulse Ox 98.5 F 68 19 100/59 L 99 12/25/19 16:05 12/25/19 16:05 12/25/19 16:05 12/25/19 16:05 12/25/19 16:05 vitals reviewed. wnl No acute complaints - chronic back pain, intoxicated No trauma Comfortable in bed, however is intoxicated Removed bottle of alcohol Monitor for sobriety, no e/o withdrawal no acute events for the ED course of shift 12/25/19 19:02 s/o to evening attgDr wise pending sobriety, reassessment Discharge - Discharge Information Problems reviewed: Yes Clinical Impression/Diagnosis: Alcohol intoxication Condition: Stable - Follow up/Referral - Patient Discharge Instructions - Post Discharge Activity
--- NOTE | 2019-12-25 23:18 | PDOC ---
History of Present Illness - General Chief Complaint: Back Pain Stated Complaint: BACK PAIN Time Seen by Provider: 12/25/19 15:51 History Source: Patient - History of Present Illness Initial Comments: 12/25/19 23:18 64y M well known to the department with PMH of alcohol use disorder, chronic back pain, thoracic compression fx, found intoxicated and brought to the ED for EtOH intoxication. Patient complains of back pain, states pain is chronic, feels similar to prior pain, no radiation to the legs, no numbness/tingling, weakness, no fevers, no injury, no falls. States he his upset because this is the day his son . Patient asking to stay the night to sleep. Given bed and a blanket. PMH/PSH: as in HPI Meds: no change Allergies: no change Etoh: heavy user ROS GENERAL/CONSTITUTIONAL: No fever or chills. No weakness. HEAD, EYES, EARS, NOSE AND THROAT: No change in vision. No ear pain or discharge. No sore throat. CARDIOVASCULAR: No chest pain or shortness of breath RESPIRATORY: No cough, wheezing, or hemoptysis. GASTROINTESTINAL: No nausea, vomiting, diarrhea or constipation. GENITOURINARY: No dysuria, frequency, or change in urination. MUSCULOSKELETAL: chronic back pain SKIN: No rash NEUROLOGIC: No headache, vertigo, loss of consciousness, or change in strength/sensation. ENDOCRINE: No increased thirst. No abnormal weight change HEMATOLOGIC/LYMPHATIC: No anemia, easy bleeding, or history of blood clots. ALLERGIC/IMMUNOLOGIC: No hives or skin allergy. PE GENERAL: Awake, alert, and fully oriented, in no acute distress, slurring words, foul smelling, disheveled. Bottle of coconut vodka removed from person. Given a bed and a blanket. HEAD: No signs of trauma, normocephalic, atraumatic EYES: PERRLA, EOMI, sclera anicteric, conjunctiva clear ENT: hearing grossly normal, nares patent, oropharynx clear without exudates. Moist mucosa NECK: Normal ROM, supple, no lymphadenopathy, JVD, or masses LUNGS: No distress, speaks full sentences, clear to auscultation bilaterally HEART: Regular rate and rhythm, normal S1 and S2, no murmurs, rubs or gallops, peripheral pulses normal and equal bilaterally. ABDOMEN: Soft, nontender, normoactive bowel sounds. No guarding, no rebound. No masses EXTREMITIES : Normal inspection, Normal range of motion, no edema. No clubbing or cyanosis. NEUROLOGICAL: Cranial nerves II through XII grossly intact. Normal speech, normal gait, no focal sensorimotor deficits SKIN: Warm, Dry, normal turgor, no rashes or lesions noted Assessment and Plan 64y M well known to the department with PMH of alcohol use disorder, chronic back pain, thoracic compression fx, found intoxicated and brought to the ED for EtOH intoxication. Patient complains of back pain, and states it is his usual back pain. No alarm symptoms or physical exam findings. -Reassess and discharge when clinically sober -Patient wants to stay the night, so plan for safe discharge in the morning 12/25/19 23:21 Past History - Medical History Allergies/Adverse Reactions: Allergies Allergy/AdvReac Type Severity Reaction Status Date / Time Fish Containing Products Allergy Mild Swelling Verified 12/24/19 12:50 No Known Drug Allergies Allergy Verified 12/24/19 12:50 Home Medications: Ambulatory Orders NK [No Known Home Medication] 12/23/19 Anemia: No Asthma: No Cancer: Yes (mesothelioma lung cancer) Cardiac Disorders: No CVA: No COPD: No CHF: No DVT: No Dementia: No Diabetes: No Dialysis: No GI Disorders: No Disorders: No HTN: Yes (non compliant with meds.) Hypercholesterolemia: Yes Kidney Stones: No Liver Disease: Yes (ETOH abuse) Psychiatric Problems: Yes (ETOH abuse) Seizures: No Thyroid Disease: No Lung CA: Yes (Mesothelioma) - Surgical History Abdominal Surgery: No Appendectomy: No Cardiac Surgery: No Cholecystectomy: No Lung Surgery: No Neurologic Surgery: No Orthopedic Surgery: No - Reproductive History Testicular Surgery: No - Immunization History Td Vaccination: Yes TDAP Vaccination: Yes Immunization Up to Date: Yes - Psycho-Social/Smoking History Smoking Status: No Smoking History: Never smoked Have you smoked in the past 12 months: No Number of Cigarettes Smoked Daily: 6 If you are a former smoker, when did you quit?: 0 Cigars Per Day: 0 'Breaking Loose' booklet given: 09/22/17 - Substance Abuse Hx (Audit-C & DAST Scrn) How often the patient has a drink containing alcohol: 4 0r more times/wk Number of drinks the patient has on a typical day: 7 to 9 How often the patient has six or more drinks on one occasion: Daily or almost daily Score: In Men: 4 or > Positive; In Women: 3 or > Positive: 11 Screen Result (Pos requires Nsg. Audit-10AR): Positive In the last yr the pt used illegal drug/Rx for NonMed reason: No Score: Yes response is considered Positive: 0 Screen Result (Positive result requires Nsg. DAST-10): Negative *Physical Exam - Vital Signs Last Vital Signs Temp Pulse Resp BP Pulse Ox 98.5 F 68 19 100/59 L 99 12/25/19 16:05 12/25/19 16:05 12/25/19 16:05 12/25/19 16:05 12/25/19 16:05 Discharge - Discharge Information Problems reviewed: Yes Clinical Impression/Diagnosis: Alcohol intoxication Condition: Stable - Follow up/Referral - Patient Discharge Instructions - Post Discharge Activity
--- NOTE | 2019-12-26 02:41 | PDOC ---
*Physical Exam - Vital Signs Last Vital Signs Temp Pulse Resp BP Pulse Ox 98.5 F 68 19 100/59 L 99 12/25/19 16:05 12/25/19 16:05 12/25/19 16:05 12/25/19 16:05 12/25/19 16:05 Medical Decision Making - Medical Decision Making Patient signed out by Dr. Lauren 64yo M with PMH of alcoholism, chronic back pain, mesothelioma BIBEMS for intoxication Initial Vital Signs Temp Pulse Resp BP Pulse Ox 98.5 F 68 19 100/59 L 99 12/25/19 16:05 12/25/19 16:05 12/25/19 16:05 12/25/19 16:05 12/25/19 16:05 VSS Patient sleeping in stretcher Pending clinical sobriety Will reassess 12/26/19 02:41 Patient signed out to Dr. Higgins and Day team 12/26/19 07:01 Discharge - Discharge Information Problems reviewed: Yes Clinical Impression/Diagnosis: Alcohol intoxication Qualifiers: Complication of substance-induced condition: uncomplicated Qualified Code(s): F10.920 - Alcohol use, unspecified with intoxication, uncomplicated Condition: Stable Disposition: HOME - Follow up/Referral - Patient Discharge Instructions Patient Printed Discharge Instructions: Alcohol Use Disorder Additional Instructions: You came into the emergency department with intoxication. If you are interested in Detox, you can go to [facility] located on [address] [place] [address] in the morning starting at 8AM. Immediate medical attention is required if you have: a seizure or develop tremors or hallucinations and do not have access to alcohol, vomiting, chest pain, shortness of breath, abdominal pain, thoughts of self-harm, or an other new or concerning symptoms. If you think you are having an emergency, call for emergency medical services or present to the emergency department right away. - Post Discharge Activity
[2019-12-26] MEDS ORDERED: chlordiazePOXIDE HCL 25 MG CAPSULE PO ONE (05:49)
[2019-12-26] MEDS ORDERED: MAG HYDROX/AL HYDROX/SIMETH -MYLANTA- ORAL SUSPENSION PO ONE (06:42)
[2019-12-26] MEDS ORDERED: MAG HYDROX/AL HYDROX/SIMETH 30 ML UNIT-DOSE CUP ONE (06:42)
--- NOTE | 2019-12-26 07:41 | PDOC ---
*Physical Exam - Vital Signs Last Vital Signs Temp Pulse Resp BP Pulse Ox 98.5 F 68 19 100/59 L 99 12/25/19 16:05 12/25/19 16:05 12/25/19 22:00 12/25/19 16:05 12/25/19 22:00 ED Treatment Course - LABORATORY CBC & Chemistry Diagram: 12/26/19 09:30 12/26/19 09:30 - Medications Given in the ED: ED Medications Discontinued Medications Generic Name Dose Route Start Last Admin Trade Name Francisco Javier PRN Reason Stop Dose Admin Al Hydroxide/Mg Hydroxide 30 ml 12/26/19 06:42 12/26/19 06:59 Mylanta Suspension - PO 12/26/19 06:43 30 ml ONCE ONE Administration Chlordiazepoxide HCl 25 mg 12/26/19 05:49 12/26/19 06:59 Librium - PO 12/26/19 05:50 25 mg ONCE ONE Administration Medical Decision Making - Medical Decision Making 12/26/19 07:38 Sign out received from Dr Munguia. John is a 64yo man with a PMH of alcoholism, chronic back pain, mesothelioma, well-known to the ED, who was BIBA overnight for intoxication. Early this morning, he reported abdominal pain and received maalox/pepcid with no impro vement. He currently also reports that his face feels swollen. - Right-sided TTP on abdominal exam - Visible facial edema, especially anders-orbital, L>R - CBC, CMP, mag, lactate, T&S 12/26/19 09:39 - Difficulty obtaining labs. US-guided IV placed but unable to draw blood - 500cc NS bolus, will re-attempt lab draw - Pt asking for food, currently denying abd pain 12/26/19 12:19 - Continues to deny abdominal pain, will give lunch - Per discussion with other ED staff, Sunil has had periorbital swelling for several weeks and is being treated for conjunctivitis. Swelling has markedly decreased at this time. Most likely chronic - Pt refusing EKG - Labs reviewed. Notable for lact 2.9, potassium 2.6, mag 1.0. Hypokalemia appears chronic, though likely also dehydrated given alcoholism and current hot outside temperatures - Additional 1L IVF ordered. - 2mg IV mag - 40meq PO potassium ordered. Pt took 20meq, refused additional. Will attempt after he eats - Plan to redraw labs following IVF, electrolyte repletion 12/26/19 16:12 - Rep lactate 2.1 - Abd pain, swelling improved - Will d/c home. Advised pt to follow up with a PMD to address chronic hypokalemia. Discussed with Dr Stanislaw Higgins PGY3 Discharge - Discharge Information Problems reviewed: Yes Clinical Impression/Diagnosis: Alcohol intoxication Qualifiers: Complication of substance-induced condition: uncomplicated Qualified Code(s): F10.920 - Alcohol use, unspecified with intoxication, uncomplicated Condition: Stable Disposition: HOME - Admission No - Follow up/Referral - Patient Discharge Instructions Patient Printed Discharge Instructions: Alcohol Use Disorder Additional Instructions: You came into the emergency department with intoxication. If you are interested in Detox, you can go to [facility] located on [address] [place] [address] in the morning starting at 8AM. Immediate medical attention is required if you have: a seizure or develop tremors or hallucinations and do not have access to alcohol, vomiting, chest pain, shortness of breath, abdominal pain, thoughts of self-harm, or an other new or concerning symptoms. If you think you are having an emergency, call for emergency medical services or present to the emergency department right away. - Post Discharge Activity
--- NOTE | 2019-12-26 08:42 | PDOC ---
*Physical Exam - Vital Signs Last Vital Signs Temp Pulse Resp BP Pulse Ox 98.5 F 68 19 100/59 L 99 12/25/19 16:05 12/25/19 16:05 12/25/19 22:00 12/25/19 16:05 12/25/19 22:00 - Physical Exam 12/26/19 08:00 Mr. De Leon stating abdominal discomfort continues, appears with periorbital edema worse than normal for the patient. Ordered Labs, EKG. EKG refused by patient, labs difficult to draw, attempting US guided PIV. ED Treatment Course - LABORATORY CBC & Chemistry Diagram: 12/26/19 09:30 12/26/19 09:30 - Medications Given in the ED: ED Medications Discontinued Medications Generic Name Dose Route Start Last Admin Trade Name Francisco Javier PRN Reason Stop Dose Admin Al Hydroxide/Mg Hydroxide 30 ml 12/26/19 06:42 12/26/19 06:59 Mylanta Suspension - PO 12/26/19 06:43 30 ml ONCE ONE Administration Chlordiazepoxide HCl 25 mg 12/26/19 05:49 12/26/19 06:59 Librium - PO 12/26/19 05:50 25 mg ONCE ONE Administration Medical Decision Making - Medical Decision Making 12/26/19 08:41 Patient states abdominal pain has resolved, requesting water. After 4 attempts at PIV we are able to place US guided PIV in LAC but this line is not drawing for labs. Patient intermittently refusing further attempts at lab draw, but will continue discussing with him. Also denying any abdominal pain at this time, asking for food and water, no tendeness to palpation on exam. 12/26/19 16:11 Repeat lactic acid after 1.5 L total IVF is 2.1, abdomen nontender and patient denying any abdominal pain. Also denying any new back pain or other symptoms. Patient states he has medication for conjunctivitis at home and will continue to use it. He has been given potassium and magnesium repletion. He is appropriate for discharge and close outpatient followup, return precautions discussed, he will come back for any abdominal pain or other new emergency concerns. Discharge - Discharge Information Problems reviewed: Yes Clinical Impression/Diagnosis: Alcohol intoxication Qualifiers: Complication of substance-induced condition: uncomplicated Qualified Code(s): F10.920 - Alcohol use, unspecified with intoxication, uncomplicated Condition: Stable Disposition: HOME - Admission No - Follow up/Referral - Patient Discharge Instructions Patient Printed Discharge Instructions: Alcohol Use Disorder Additional Instructions: You came into the emergency department with intoxication. If you are interested in Detox, you can go to [facility] located on [address] [place] [address] in the morning starting at 8AM. Immediate medical attention is required if you have: a seizure or develop tremors or hallucinations and do not have access to alcohol, vomiting, chest pain, shortness of breath, abdominal pain, thoughts of self-harm, or an other new or concerning symptoms. If you think you are having an emergency, call for emergency medical services or present to the emergency department right away. - Post Discharge Activity
[2019-12-26] MEDS ORDERED: SODIUM CHLORIDE 0.9% 500 ML INFUS.BAG IV ONE ×2 (09:00→11:24)
[2019-12-26 10:33] LABS: BASO % 0.7 % (0-2.0); EOS % 1.4 % (0-4.5); HEMATOCRIT 34.7 % (35.4-49); LYMPH % 17.6 % (8-40); MCH 27.2 pg (25.7-33.7); MCHC 31.6 g/dl (32.0-35.9); MEAN CELL VOLUME 85.9 fl (80-96); MEAN PLT VOLUME 7.7 fl (7.5-11.1); MONO % 9.6 % (3.8-10.2); NEUT % 70.7 % (42.8-82.8); PLATELET COUNT 183 K/MM3 (134-434); RBC 4.04 M/mm3 (4.00-5.60); RDW 20.4 % (11.9-15.9); WHITE BLOOD COUNT 6.2 K/mm3 (4.0-10.0)
[2019-12-26 11:14] LABS: ALBUMIN 2.8 g/dl (3.4-5.0); ALK PHOS 146 U/L (45-117); BILIRUBIN,TOTAL 0.9 mg/dL (0.2-1); BLOOD UREA NITROGEN 3.1 mg/dL (7-18); CALCIUM 7.9 mg/dL (8.5-10.1); CHLORIDE 103 mmol/L (98-107); CO2 31 mmol/L (21-32); CREATININE 0.6 mg/dL (0.55-1.3); GLUCOSE,RANDOM 82 mg/dL (74-106); SGOT/AST 64 U/L (15-37); SGPT/ALT 33 U/L (13-61); SODIUM 143 mmol/L (136-145); TOT PROT 6.2 g/dl (6.4-8.2)
[2019-12-26] MEDS ORDERED: MAGNESIUM SULF 50% (8.12 MEQ/2 ML-1 GM VIAL) IVPB ONE ×2 (11:19→11:20)
[2019-12-26] MEDS ORDERED: POTASSIUM CHLORIDE TABS 20 MEQ TABLET.ER (FP) PO ONE ×3 (11:19→13:00)
[2019-12-26 11:35] LABS: ANION GAP 9 MMOL/L (8-16)
[2019-12-26 11:49] LABS: POTASSIUM 2.6 mmol/L (3.5-5.1)
[2019-12-26] MEDS ORDERED: POTASSIUM CHLORIDE ORAL LIQUID 20 MEQ/15 ML PO ONE (12:00)
[2019-12-26] MEDS ORDERED: POTASSIUM CHLORIDE ORAL LIQUID 20 MEQ/15 ML ONE (12:09)
[2019-12-26] MEDS ORDERED: MAGNESIUM SULF 50% (8.12 MEQ/2 ML-1 GM VIAL) ONE (12:19)
[2019-12-26 15:30] VITALS: TEMP 99.3
[2019-12-26 16:50] VITALS: BP 128/78; PULSE 86
== END 2019-12-26 17:02 | disposition home or self-care (01) ==
LOC: JER 15:49
DX: F10.920 Alcohol use, unspecified with intoxication, uncomplicated (principal)
CPT/HCPCS: 36415; 80053; 82550; 82553; 83605; 83735; 84484; 85025; 99285-25

== ENCOUNTER 2019-12-26 21:30 | Emergency (ER) | payer OTHER ==
--- NOTE | 2019-12-26 21:42 | PDOC ---
Rapid Medical Evaluation Chief Complaint: Substance Abuse Time Seen by Provider: 12/26/19 21:38 Medical Evaluation: Allergies Allergy/AdvReac Type Severity Reaction Status Date / Time Fish Containing Products Allergy Mild Swelling Verified 12/24/19 12:50 No Known Drug Allergies Allergy Verified 12/24/19 12:50 12/26/19 21:39 64 year old male BIBA for alcohol intoxication. patient is alert talking no slurred speech. PE: patient alert ox3, no sign of trauma A: alcohol abuse P; patient for further management of care. Discharge Disposition - Diagnosis Alcohol abuse - Referrals - Patient Instructions - Post Discharge Activity
[2019-12-26 21:43] VITALS: BP 97/52; PULSE 95; TEMP 98.5; BMI 41.3
--- NOTE | 2019-12-26 22:23 | PDOC ---
Attending Attestation - Resident Resident Name: Emmett Villela - ED Attending Attestation I have performed the following: I have examined & evaluated the patient, The case was reviewed & discussed with the resident, I agree w/resident's findings & plan - HPI HPI: 12/26/19 23:41 see resident hpi - Physicial Exam PE: 12/26/19 23:42 see resident exam - Medical Decision Making 12/26/19 23:42 64-year-old male well-known to this facility with complaints of generalized malaise and "can I have a sandwich " No new trauma Patient does have alcohol on breath with known history of alcohol abuse We will observe in the emergency department and plan for DC home when sober Discharge - Discharge Information Problems reviewed: Yes Clinical Impression/Diagnosis: Alcohol abuse - Follow up/Referral - Patient Discharge Instructions - Post Discharge Activity
--- NOTE | 2019-12-26 23:11 | PDOC ---
History of Present Illness - General Chief Complaint: Substance Abuse Stated Complaint: INTOXICATED Time Seen by Provider: 12/26/19 21:38 - History of Present Illness Initial Comments: 12/26/19 22:50 64y M with PMH of alcohol use disorder, chronic back pain, thoracic compression fx, found intoxicated and brought to the ED for alcohol intoxication. Patient complains of back pain, states pain is chronic, feels similar to prior pain, no radiation to the legs, no numbness/tingling, weakness, no fevers, no injury, no falls. PMH/PSH: as in HPI Meds: no change Allergies: no change Etoh: heavy drinker ROS GENERAL/CONSTITUTIONAL: No fever or chills. No weakness. HEAD, EYES, EARS, NOSE AND THROAT: No change in vision. No ear pain or discharge. No sore throat. CARDIOVASCULAR: No chest pain or shortness of breath RESPIRATORY: No cough, wheezing, or hemoptysis. GASTROINTESTINAL: No nausea, vomiting, diarrhea or constipation. GENITOURINARY: No dysuria, frequency, or change in urination. MUSCULOSKELETAL: chronic back pain SKIN: No rash NEUROLOGIC: No headache, vertigo, loss of consciousness, or change in strength/sensation. ENDOCRINE: No increased thirst. No abnormal weight change HEMATOLOGIC/LYMPHATIC: No anemia, easy bleeding, or history of blood clots. ALLERGIC/IMMUNOLOGIC: No hives or skin allergy. PE GENERAL: Awake, alert, and fully oriented, in no acute distress, slurring words, foul smelling, disheveled. HEAD: No signs of trauma, normocephalic, atraumatic EYES: PERRLA, EOMI, sclera anicteric, conjunctiva clear ENT: hearing grossly normal, nares patent, oropharynx clear without, no tongue fasciculation exudates. Moist mucosa NECK: Normal ROM, supple, no lymphadenopathy, JVD, or masses LUNGS: No distress, speaks full sentences, clear to auscultation bilaterally HEART: Regular rate and rhythm, normal S1 and S2, no murmurs, rubs or gallops, peripheral pulses normal and equal bilaterally. ABDOMEN: Soft, nontender, normoactive bowel sounds. No guarding, no rebound. No masses EXTREMITIES : Normal inspection, Normal range of motion, no edema. No clubbing or cyanosis. NEUROLOGICAL: Cranial nerves II through XII grossly intact. Normal speech, no rmal gait, no focal sensorimotor deficits SKIN: Warm, Dry, normal turgor, no rashes or lesions noted Assessment and Plan 64y M well known to the department with PMH of alcohol use disorder, chronic back pain, thoracic compression fx, found intoxicated and brought to the ED for EtOH intoxication. Patient complains of back pain, and states it is his usual back pain. No alarm symptoms or physical exam findings. -Reassess and discharge when clinically sober -Patient wants to stay the night, so plan for safe discharge in the morning Past History - Medical History Allergies/Adverse Reactions: Allergies Allergy/AdvReac Type Severity Reaction Status Date / Time Fish Containing Products Allergy Mild Swelling Verified 12/26/19 21:41 No Known Drug Allergies Allergy Verified 12/26/19 21:41 Home Medications: Ambulatory Orders NK [No Known Home Medication] 12/23/19 Anemia: No Asthma: No Cancer: Yes (mesothelioma lung cancer) Cardiac Disorders: No CVA: No COPD: No CHF: No DVT: No Dementia: No Diabetes: No Dialysis: No GI Disorders: No Disorders: No HTN: Yes (non compliant with meds.) Hypercholesterolemia: Yes Kidney Stones: No Liver Disease: Yes (ETOH abuse) Psychiatric Problems: Yes (ETOH abuse) Seizures: No Thyroid Disease: No Lung CA: Yes (Mesothelioma) - Surgical History Abdominal Surgery: No Appendectomy: No Cardiac Surgery: No Cholecystectomy: No Lung Surgery: No Neurologic Surgery: No Orthopedic Surgery: No - Reproductive History Testicular Surgery: No - Immunization History Td Vaccination: Yes TDAP Vaccination: Yes Immunization Up to Date: Yes - Psycho-Social/Smoking History Smoking Status: No Smoking History: Former smoker Have you smoked in the past 12 months: No Number of Cigarettes Smoked Daily: 6 If you are a former smoker, when did you quit?: 0 Cigars Per Day: 0 Information on smoking cessation initiated: No 'Breaking Loose' booklet given: 09/22/17 - Substance Abuse Hx (Audit-C & DAST Scrn) How often the patient has a drink containing alcohol: 4 0r more times/wk Number of drinks the patient has on a typical day: 10 or more How often the patient has six or more drinks on one occasion: Daily or almost d aily Score: In Men: 4 or > Positive; In Women: 3 or > Positive: 12 Screen Result (Pos requires Nsg. Audit-10AR): Positive In the last yr the pt used illegal drug/Rx for NonMed reason: No Score: Yes response is considered Positive: 0 Screen Result (Positive result requires Nsg. DAST-10): Negative *Physical Exam - Vital Signs Last Vital Signs Temp Pulse Resp BP Pulse Ox 98.5 F 95 H 18 97/52 L 95 12/26/19 21:38 12/26/19 21:38 12/26/19 21:38 12/26/19 21:38 12/26/19 21:38 Discharge - Discharge Information Problems reviewed: Yes Clinical Impression/Diagnosis: Alcohol abuse Condition: Fair Disposition: HOME - Admission No - Follow up/Referral - Patient Discharge Instructions Patient Printed Discharge Instructions: DI for Alcohol Abuse, Drug and Alcohol Withdrawal, DI for Alcohol Poisoning Additional Instructions: You came to the ED intoxicated and altered. While here in the Dept, you rested and slept off some of the intoxication. You must return to the Emergency Department with any new complaints, if your symptoms persist and do not improve or if you develop any other new or worsening concerns. As discussed, please call to follow up with your Primary Care physician in 1-2 days to discuss what happened to you in the emergency room, and make sure you are being looked after and taken care of. Your emergency room visit is not complete without this follow up appointment. Thank you for coming to the [facility]. We hope you feel better soon! - Post Discharge Activity
--- NOTE | 2019-12-27 05:31 | PDOC ---
*Physical Exam - Vital Signs Last Vital Signs Temp Pulse Resp BP Pulse Ox 98.5 F 95 H 18 97/52 L 95 12/26/19 21:38 12/26/19 21:38 12/26/19 21:38 12/26/19 21:38 12/26/19 21:38 - Physical Exam 12/27/19 05:30 This patient was signed out to me. While here he was stable. His mental status has improved marginally. He will be discharged once he is A/O x3 and medically stable. Discharge - Discharge Information Problems reviewed: Yes Clinical Impression/Diagnosis: Alcohol abuse Condition: Fair Disposition: HOME - Admission No - Follow up/Referral - Patient Discharge Instructions Patient Printed Discharge Instructions: DI for Alcohol Poisoning, Drug and Alcohol Withdrawal, DI for Alcohol Abuse Additional Instructions: You came to the ED intoxicated and altered. While here in the Dept, you rested and slept off some of the intoxication. You must return to the Emergency Department with any new complaints, if your symptoms persist and do not improve or if you develop any other new or worsening concerns. As discussed, please call to follow up with your Primary Care physician in 1-2 days to discuss what happened to you in the emergency room, and make sure you are being looked after and taken care of. Your emergency room visit is not complete without this follow up appointment. Thank you for coming to the [facility] [place]. We hope you feel better soon! - Post Discharge Activity
== END 2019-12-27 06:03 | disposition home or self-care (01) ==
LOC: JER 21:30
DX: F10.10 Alcohol abuse, uncomplicated (principal)
CPT/HCPCS: 99283-25

== ENCOUNTER 2019-12-28 14:02 | Emergency (ER) | payer OTHER ==
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
[2019-12-28 14:35] VITALS: BP 97/52; PULSE 91; TEMP 98.5; BMI 44.4
[2019-12-28] MEDS ORDERED: ACETAMINOPHEN 325 MG TABLET (FP) PO ONE (16:27)
[2019-12-28] MEDS ORDERED: chlordiazePOXIDE HCL 25 MG CAPSULE PO ONE (16:31)
--- NOTE | 2019-12-28 16:31 | PDOC ---
Documentation entered by Serenity Juárez SCRIBE, acting as scribe for Amada Alamo MD. Amada Alamo MD: This documentation has been prepared by the Marquita pereira Adrianna, SCRIBE, under my direction and personally reviewed by me in its entirety. I confirm that the documentation accurately reflects all work, treatment, procedures, and medical decision making performed by me. History of Present Illness - General Chief Complaint: Alcohol intoxication Stated Complaint: INTOX Time Seen by Provider: 12/28/19 14:15 History Source: Patient Exam Limitations: No Limitations - History of Present Illness Initial Comments: HPI 64M well known to the ED w/hx HTN (not on meds), mesothelioma, EtOH use disorder, chronic back pain p/w SOB for 2 days. Patient complains of SOB and dyspnea on exertion (which he notes is 2/2 to his lung CA). He endorses associated cough and left-sided chest tightness. Patient reports some abdominal discomfort, which is chronic in nature. Patient notes he last drank 3 days ago. Denies fever, chills, palpitation, dizziness, weakness, N, V, D, abdominal pain, bladder and bowel problems, focal weakness/paresthesias, rash. No sick contacts or travel. No new changes in medications. No suspicious food intake Allergies: None Past Medical History/PSH: HTN (not on meds), mesothelioma, EtOH use disorder, chronic back pain Social history: EtOH use disorder Meds: as documented in EMR Family history: noncontributory Review of systems Constitutional: no fevers or chills. No weakness HEENT: no headache or dizziness. No congestion. No visual/hearing disturbances. CVS: +left-sided chest tightness. no syncope. Resp: +SOB. +Cough. Gastrointestinal: +chronic abdominal discomfort. no nausea, vomiting, diarrhea. Genitourinary: no urinary sx, hematuria. MUSCULOSKELETAL: No joint pain and swelling. No neck or back pain. SKIN: no redness or skin changes, no discharge, no rash. No wounds. Hematologic: no easy bruising/bleeding. NEUROLOGIC: No headache, dizziness, LOC or altered mental status. No weakness, numbness or tingling. Psych: no anxiety or depression Allergic/Immunologic: no allergies All other systems reviewed and negative, or as documented in HPI. Physical exam General: Well appearing, awake and alert, NAD. Non-tremulous. HEENT: NCAT, PERRL, EOMI, clear conjunctiva, anicteric, moist mucus membranes, clear oropharynx, no oral lesions.. Neck: neck supple, FROM Resp: CTAB, normal and even respirations, no respiratory distress CVS: RRR, no murmurs, 2+ peripheral pulses throughout, no peripheral edema Chest: left chest wall TTP, no ecchymosis, no crepitus. Abdomen: soft, NTND, no rebound or guarding. protuberant obese abdomen. Back: nontender, normal inspection and ROM MSK: no edema, DICKEY x4, ROM intact. No clubbing or cyanosis. normal bulk and tone. Extremities: no calf tenderness Neuro: alert, oriented appropriately; no focal neurologic deficits. no tremors, speech clear. Psych: Calm and cooperative Skin: warm and well perfused, cap refill <2 sec, normal color 12/28/19 17:28 Past History - Medical History Allergies/Adverse Reactions: Allergies Allergy/AdvReac Type Severity Reaction Status Date / Time Fish Containing Products Allergy Mild Swelling Verified 12/26/19 21:41 No Known Drug Allergies Allergy Verified 12/26/19 21:41 Home Medications: Ambulatory Orders NK [No Known Home Medication] 12/23/19 Anemia: No Asthma: No Cancer: Yes (mesothelioma lung cancer) Cardiac Disorders: No CVA: No COPD: No CHF: No DVT: No Dementia: No Diabetes: No Dialysis: No GI Disorders: No Disorders: No HTN: Yes (non compliant with meds.) Hypercholesterolemia: Yes Kidney Stones: No Liver Disease: Yes (ETOH abuse) Psychiatric Problems: Yes (ETOH abuse) Seizures: No Thyroid Disease: No Lung CA: Yes (Mesothelioma) - Surgical History Abdominal Surgery: No Appendectomy: No Cardiac Surgery: No Cholecystectomy: No Lung Surgery: No Neurologic Surgery: No Orthopedic Surgery: No - Reproductive History Testicular Surgery: No - Immunization History Td Vaccination: Yes TDAP Vaccination: Yes Immunization Up to Date: Yes - Psycho-Social/Smoking History Smoking Status: No Smoking History: Never smoked Have you smoked in the past 12 months: No Number of Cigarettes Smoked Daily: 6 If you are a former smoker, when did you quit?: 0 Cigars Per Day: 0 Information on smoking cessation initiated: No 'Breaking Loose' booklet given: 09/22/17 - Substance Abuse Hx (Audit-C & DAST Scrn) How often the patient has a drink containing alcohol: Never Score: In Men: 4 or > Positive; In Women: 3 or > Positive: 0 Screen Result (Pos requires Nsg. Audit-10AR): Negative In the last yr the pt used illegal drug/Rx for NonMed reason: No Score: Yes response is considered Positive: 0 Screen Result (Positive result requires Nsg. DAST-10): Negative *Physical Exam - Vital Signs Last Vital Signs Temp Pulse Resp BP Pulse Ox 98.5 F 91 H 16 97/52 L 95 12/28/19 14:19 12/28/19 14:19 12/28/19 14:12/28/19 14:12/28/19 14:19 Heart Score/ECG Review #1 ECG reviewed & interpreted by me at: 16:45 General ECG Interpretation: Sinus Rhythm, Normal Rate Compared to previous ECG there are: No significant change 12/28/19 17:27 EKG normal sinus rhythm 88 bpm, no interval abnormalities, narrow QRS, ST and T wave segments and morphology normal. Medical Decision Making - Medical Decision Making 12/28/19 16:29 Vital Signs Temp Pulse Resp BP Pulse Ox 98.5 F 91 H 16 97/52 L 95 12/28/19 14:19 12/28/19 14:19 12/28/19 14:19 12/28/19 14:19 12/28/19 14:19 vitals reviewed afebrile bp is soft, but mentating will recheck given hydration, PO intake sober no neuro deficits +left chest wall pain, sob, pt states he has mesothelioma no respiratory distress reproducible chest wall tenderness, no e/o trauma abdomen is soft and nontender recently here in the ED 2-3 days ago, with unremarkable workup/labs. no indication for labs CXR does not appear remarkable, low lung volumes, read as congestive changes but pt does not appear fluid overloaded or in respiratory distress, as his lungs are clear to auscultation. Similar to mediastinum and remains widened, there is some pleural and pulmonary changes, skeletal changes are persistent, patient does have some atelectasis and left-sided pleural fluid tracking along the chest wall, bilateral AC joint deformities as well as shoulder deformities of the right more affected than the left, c/w his known history of shoulder and joint pain. no focal consolidation or fluid overloaded state. no ptx. unlikely cause of his symptoms, as mostly chronic in nature. pt does have history of mesothelioma. EKG NSR, non ischemic gait is stable comfortable arely PO intake, hydrated. alcohol use and assistance offered, pt declines park care transfer. he is not in acute withdrawal or acutely intoxicated. Pt to be discharged in stable condition. Patient made aware of clinical impression, treatment recommendations and disposition plan, return precautions discussed (including but not limited to new or persistent/worsening symptoms, pain, fevers, or signs of infection, chest pain, respiratory distress, inability to tolerate oral intake, dehydration, syncope, or neurologic changes). Follow up with PMD as recommended, follow up information provided, take medications as instructed for duration of time. continue with supportive care, avoid triggers and precipitants. All questions answered to patient's satisfaction and expressed understanding and comfort with this. At the time of discharge, the patient is alert, clinically improved, tolerating po and verbalizes understanding of instructions, satisfied with the care received and felt comfortable with the plan. Patient does not suffer from an acute life-threatening medical condition at this time and is safe for outpatient follow-up. 12/28/19 17:33 12/28/19 18:34 12/28/19 18:35 Discharge - Discharge Information Problems reviewed: Yes Clinical Impression/Diagnosis: Alcohol abuse, Chest pain Condition: Stable Disposition: HOME - Admission No - Follow up/Referral Referrals: Lily Cornejo [Primary Care Provider] - - Patient Discharge Instructions Patient Printed Discharge Instructions: DI for Chest Pain - Post Discharge Activity
[2019-12-28] MEDS ORDERED: ACETAMINOPHEN 325 MG TABLET (FP) ONE (16:41)
[2019-12-28] MEDS ORDERED: chlordiazePOXIDE HCL 25 MG CAPSULE ONE ×2 (16:42→16:45)
--- NOTE | 2019-12-29 11:53 | EKG ---
Test Reason : Blood Pressure : / mmHG Vent. Rate : 088 BPM Atrial Rate : 088 BPM P-R Int : 168 ms QRS Dur : 090 ms QT Int : 398 ms P-R-T Axes : 019 -31 048 degrees QTc Int : 481 ms POOR DATA QUALITY, INTERPRETATION MAY BE ADVERSELY AFFECTED NORMAL SINUS RHYTHM LEFT AXIS DEVIATION SEPTAL INFARCT , AGE UNDETERMINED ABNORMAL ECG WHEN COMPARED WITH ECG OF 27-NOV-2019 08:26, SEPTAL INFARCT IS NOW PRESENT NONSPECIFIC T WAVE ABNORMALITY NOW EVIDENT IN LATERAL LEADS Confirmed by ANGELINA HYLTON MD ([id number]) on 12/29/2019 11:53:24 AM Referred By: Confirmed By:ANGELINA HYLTON MD
== END 2019-12-28 18:40 | disposition home or self-care (01) ==
LOC: JER 14:02
DX: F10.10 Alcohol abuse, uncomplicated (principal); R07.9 Chest pain, unspecified
CPT/HCPCS: 71046-TC-FY; 93005; 93010; 99284-25

== ENCOUNTER 2019-12-29 21:43 | Emergency (ER) | payer OTHER ==
--- NOTE | 2019-12-29 21:46 | PDOC ---
Rapid Medical Evaluation Time Seen by Provider: 12/29/19 21:44 Medical Evaluation: Allergies Allergy/AdvReac Type Severity Reaction Status Date / Time Fish Containing Products Allergy Mild Swelling Verified 12/26/19 21:41 No Known Drug Allergies Allergy Verified 12/26/19 21:41 12/29/19 21:44 I have performed a brief in-person evaluation of this patient. CC: "My back hurts and the alcohol did not work today." PE: +intoxication. Orders: nothing Patient will proceed to ED for further evaluation. Discharge Disposition - Diagnosis Alcohol abuse, Chronic back pain - Referrals - Patient Instructions - Post Discharge Activity
[2019-12-29 22:15] VITALS: TEMP 97.8; BMI 38.2
--- NOTE | 2019-12-29 23:04 | PDOC ---
Attending Attestation - Resident Resident Name: [email or web address] - ED Attending Attestation I have performed the following: I have examined & evaluated the patient, The case was reviewed & discussed with the resident, I agree w/resident's findings & plan, Exceptions are as noted - HPI HPI: 12/30/19 06:17 See resident HPI - Physicial Exam PE: 12/30/19 06:17 Agree with documented exam - Medical Decision Making 12/30/19 06:17 Well know to ED c/o chronic px and etoh intox observe re-eval dc when clinically sober Discharge - Discharge Information Problems reviewed: Yes Clinical Impression/Diagnosis: Alcohol abuse Chronic back pain Qualifiers: Back pain location: low back pain Back pain laterality: bilateral Sciatica presence: unspecified whether sciatica present Qualified Code(s): M54.5 - Low back pain Condition: Stable - Follow up/Referral - Patient Discharge Instructions Patient Printed Discharge Instructions: DI for Alcohol Abuse Additional Instructions: You were seen in the Emergency Department for evaluation alcohol intoxication. Review the handout provided at discharge. Follow up with your primary care provider within a week. Return to the Emergency Department if you develop fevers, chest pain, trouble breathing, worsening symptoms, or any new/concerning symptoms. - Post Discharge Activity
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
[2019-12-30 05:05] VITALS: BP 139/90; PULSE 72
== END 2019-12-30 06:35 | disposition home or self-care (01) ==
LOC: JER 21:43
DX: M54.5 Low back pain (principal); F10.10 Alcohol abuse, uncomplicated
CPT/HCPCS: 99283-25

== ENCOUNTER 2019-12-31 16:16 | Emergency (ER) | payer OTHER ==
--- NOTE | 2019-12-31 16:32 | PDOC ---
Rapid Medical Evaluation Time Seen by Provider: 12/31/19 16:27 Medical Evaluation: Allergies Allergy/AdvReac Type Severity Reaction Status Date / Time Fish Containing Products Allergy Mild Swelling Verified 12/26/19 21:41 No Known Drug Allergies Allergy Verified 12/26/19 21:41 12/31/19 16:28 I have performed a brief in-person evaluation of this patient. The patient presents with a chief complaint of:found intoxicated on pier bench. C/o sunburn to b/l LE and his usual chronic back pain. Denies trauma today Pertinent physical exam findings:NAD, appears intox I have ordered the following:nothing The patient will proceed to the ED for further evaluation. Discharge Disposition - Diagnosis Alcohol intoxication Qualifiers: Complication of substance-induced condition: uncomplicated Qualified Code(s): F10.920 - Alcohol use, unspecified with intoxication, uncomplicated - Discharge Dispostion Last Admission D/C Date: 11/29/19 - Referrals - Patient Instructions - Post Discharge Activity
[2019-12-31 16:39] VITALS: BP 92/57; PULSE 87; TEMP 98; BMI 36.6
--- NOTE | 2019-12-31 16:48 | PDOC ---
History of Present Illness - General Stated Complaint: SUN BURN/ BACK PAIN Time Seen by Provider: 12/31/19 16:27 - History of Present Illness Initial Comments: Patient is a 64 YOM male h/o alcoholism who presents with pain 2/2 sunburn on legs. Patients reports that he was lying in the sun all day yesterday, woke up this morning with pain and redness over anterior surface of both legs. He denies CP, SOB, N/V/D, fever or chills. Past History - Medical History Allergies/Adverse Reactions: Allergies Allergy/AdvReac Type Severity Reaction Status Date / Time Fish Containing Products Allergy Mild Swelling Verified 12/26/19 21:41 No Known Drug Allergies Allergy Verified 12/26/19 21:41 Home Medications: Ambulatory Orders NK [No Known Home Medication] 12/23/19 Anemia: No Asthma: No Cancer: Yes (mesothelioma lung cancer) Cardiac Disorders: No CVA: No COPD: No CHF: No DVT: No Dementia: No Diabetes: No Dialysis: No GI Disorders: No Disorders: No HTN: Yes (non compliant with meds.) Hypercholesterolemia: Yes Kidney Stones: No Liver Disease: Yes (ETOH abuse) Psychiatric Problems: Yes (ETOH abuse) Seizures: No Thyroid Disease: No Lung CA: Yes (Mesothelioma) - Surgical History Abdominal Surgery: No Appendectomy: No Cardiac Surgery: No Cholecystectomy: No Lung Surgery: No Neurologic Surgery: No Orthopedic Surgery: No - Reproductive History Testicular Surgery: No - Immunization History Td Vaccination: Yes TDAP Vaccination: Yes Immunization Up to Date: Yes - Psycho-Social/Smoking History Smoking Status: No Smoking History: Former smoker Have you smoked in the past 12 months: No Number of Cigarettes Smoked Daily: 6 If you are a former smoker, when did you quit?: 0 Cigars Per Day: 0 Information on smoking cessation initiated: No 'Breaking Loose' booklet given: 09/22/17 - Substance Abuse Hx (Audit-C & DAST Scrn) How often the patient has a drink containing alcohol: 4 0r more times/wk Number of drinks the patient has on a typical day: 10 or more How often the patient has six or more drinks on one occasion: Daily or almost daily Score: In Men: 4 or > Positive; In Women: 3 or > Positive: 12 Screen Result (Pos requires Nsg. Audit-10AR): Positive In the last yr the pt used illegal drug/Rx for NonMed reason: Yes Score: Yes response is considered Positive: 1 Screen Result (Positive result requires Nsg. DAST-10): Positive Review of Systems - Review of Systems Constitutional: Yes: See HPI HEENTM: Yes: See HPI Respiratory: Yes: See HPI Cardiac (ROS): Yes: See HPI ABD/GI: Yes: See HPI : Yes: See HPI Musculoskeletal: Yes: See HPI Integumentary: Yes: See HPI Neurological: Yes: See HPI Endocrine: Yes: See HPI Hematologic/Lymphatic: Yes: See HPI *Physical Exam - Vital Signs Last Vital Signs Temp Pulse Resp BP Pulse Ox 98 F 87 20 92/57 L 98 12/31/19 16:17 12/31/19 16:17 12/31/19 16:17 12/31/19 16:17 12/31/19 16:17 - Physical Exam General Appearance: Yes: Nourished, Alcohol on Breath, Obese Respiratory/Chest: positive: Lungs Clear, Normal Breath Sounds Cardiovascular: positive: Regular Rhythm, Regular Rate, S1, S2 Extremity: positive: Other (anterior surface of both lower legs, erythematous, tender, and warm to touch. ) Medical Decision Making - Medical Decision Making Patient is a 64 YOM male h/o alcoholism who presents with pain 2/2 sunburn on legs. Patients reports that he was lying in the sun all day yesterday, woke up this morning with pain and redness over anterior surface of both legs. He denies CP, SOB, N/V/D, fever or chills. Vitals stable on arrival, physical exam noteworthy for erythema, tenderness, and warmth at anterior surface of both legs. ddx: sunburn plan: will apply topical petroleum jelly to skin of both legs reassess: patient feels better and wishes to go home. Discharge - Discharge Information Problems reviewed: Yes Clinical Impression/Diagnosis: Alcohol intoxication Qualifiers: Complication of substance-induced condition: uncomplicated Qualified Code(s): F10.920 - Alcohol use, unspecified with intoxication, uncomplicated Disposition: ELOPED - Follow up/Referral - Patient Discharge Instructions - Post Discharge Activity
--- NOTE | 2019-12-31 17:42 | PDOC ---
Documentation entered by Erum Bell SCRIBE, acting as scribe for Jamal Rodriges MD. Jamal Rodriges MD: This documentation has been prepared by the Arabella pereira Sydney, SCRIBE, under my direction and personally reviewed by me in its entirety. I confirm that the documentation accurately reflects all work, treatment, procedures, and medical decision making performed by me. Attending Attestation - Resident Resident Name: Cade Aragon - ED Attending Attestation I have performed the following: I have examined & evaluated the patient, The case was reviewed & discussed with the resident, I agree w/resident's findings & plan, Exceptions are as noted - HPI HPI: 12/31/19 17:40 Patient is a 64 year old male with a significant past medical history of EtOH abuse, chronic lower back pain who presents to the ED with back pain and alcohol intoxication. Patient was [place] pier bench and endorses his usual lower back pain. Allergies: NKDA - Physicial Exam PE: 12/31/19 17:42 See resident exam - Medical Decision Making 12/31/19 17:42 64 m with ETOH intoxication and chronic back pain. No evidence of acute trauma on exam. - Reassess when sober Pt clinically sober at time of discharge, ambulating with steady gait. Discharge - Discharge Information Problems reviewed: Yes Clinical Impression/Diagnosis: Eloped from emergency department Alcohol intoxication Qualifiers: Complication of substance-induced condition: uncomplicated Qualified Code(s): F10.920 - Alcohol use, unspecified with intoxication, uncomplicated Condition: Stable Disposition: ELOPED - Follow up/Referral - Patient Discharge Instructions - Post Discharge Activity
== END 2019-12-31 18:38 | disposition left against medical advice (07) ==
LOC: JER 16:16
DX: F10.920 Alcohol use, unspecified with intoxication, uncomplicated (principal)
CPT/HCPCS: 99283-25

== ENCOUNTER 2020-01-02 16:23 | Emergency (ER) | payer OTHER ==
[2020-01-02] MEDS ORDERED: LIDOCAINE 5% TOPICAL PATCH TP ONE (17:05)
[2020-01-02] MEDS ORDERED: LIDOCAINE 5% TOPICAL PATCH ONE (17:08)
--- NOTE | 2020-01-02 17:09 | PDOC ---
History of Present Illness - General Chief Complaint: Pain Stated Complaint: BACK PAIN Time Seen by Provider: 01/02/20 16:56 History Source: Patient Exam Limitations: No Limitations - History of Present Illness Initial Comments: 01/02/20 17:06 64y M with PMH of alcohol dependence, chronic lower back pain presenting to the ER for back pain. Pt states that he has been provided with options for the pain but refuses surgery. States Tylenol does not help. Denies numbness, difficulty walking, sciatica type pain, bladder/bowel incontinence. Denies chest pain, sob. 01/02/20 17:45 Past History - Medical History Allergies/Adverse Reactions: Allergies Allergy/AdvReac Type Severity Reaction Status Date / Time Fish Containing Products Allergy Mild Swelling Verified 12/26/19 21:41 No Known Drug Allergies Allergy Verified 12/26/19 21:41 Home Medications: Ambulatory Orders NK [No Known Home Medication] 12/23/19 Anemia: No Asthma: No Cancer: Yes (mesothelioma lung cancer) Cardiac Disorders: No CVA: No COPD: No CHF: No DVT: No Dementia: No Diabetes: No Dialysis: No GI Disorders: No Disorders: No HTN: Yes (non compliant with meds.) Hypercholesterolemia: Yes Kidney Stones: No Liver Disease: Yes (ETOH abuse) Psychiatric Problems: Yes (ETOH abuse) Seizures: No Thyroid Disease: No Lung CA: Yes (Mesothelioma) - Surgical History Abdominal Surgery: No Appendectomy: No Cardiac Surgery: No Cholecystectomy: No Lung Surgery: No Neurologic Surgery: No Orthopedic Surgery: No - Reproductive History Testicular Surgery: No - Immunization History Td Vaccination: Yes TDAP Vaccination: Yes Immunization Up to Date: Yes - Psycho-Social/Smoking History Smoking Status: No Smoking History: Former smoker Have you smoked in the past 12 months: No Number of Cigarettes Smoked Daily: 6 If you are a former smoker, when did you quit?: 0 Cigars Per Day: 0 Information on smoking cessation initiated: No 'Breaking Loose' booklet given: 09/22/17 - Substance Abuse Hx (Audit-C & DAST Scrn) How often the patient has a drink containing alcohol: 4 0r more times/wk Number of drinks the patient has on a typical day: 10 or more How often the patient has six or more drinks on one occasion: Daily or almost daily Score: In Men: 4 or > Positive; In Women: 3 or > Positive: 12 Screen Result (Pos requires Nsg. Audit-10AR): Positive In the last yr the pt used illegal drug/Rx for NonMed reason: No Score: Yes response is considered Positive: 0 Screen Result (Positive result requires Nsg. DAST-10): Negative Review of Systems - Review of Systems Constitutional: No: Symptoms Reported HEENTM: No: Symptoms Reported Respiratory: No: Symptoms reported Cardiac (ROS): No: Symptoms Reported ABD/GI: No: Symptoms Reported : No: Symptoms Reported Musculoskeletal: Yes: See HPI Neurological: No: Symptoms reported *Physical Exam - Vital Signs Last Vital Signs Temp Pulse Resp BP Pulse Ox 98.3 F 90 18 150/61 94 L 01/02/20 16:59 01/02/20 16:59 01/02/20 16:59 01/02/20 16:59 01/02/20 16:59 - Physical Exam General Appearance: Yes: Appropriately Dressed, Intoxicated, Obese. No: Apparent Distress HEENT: positive: EOMI, DOUGLAS. negative: Scleral Icterus (R), Scleral Icterus (L) Neck: positive: Trachea midline, Supple Respiratory/Chest: positive: Lungs Clear, Normal Breath Sounds. negative: Crackles, Rales, Rhonchi, Stridor, Wheezing Gastrointestinal/Abdominal: positive: Normal Bowel Sounds, Soft. negative: Tender Musculoskeletal: negative: CVA Tenderness, Decreased Range of Motion, Vertebral Tenderness Extremity: positive: Normal Capillary Refill, Swelling Integumentary: positive: Normal Color, Dry, Warm Neurologic: positive: figurine maker II-XII NML intact, Fully Oriented, Alert, Normal Mood/Affect, Normal Response, Motor Strength 5/5 Medical Decision Making - Medical Decision Making 01/02/20 17:07 64y M well known to the department with PMH of alcohol dependence, chronic lower back pain. No red flags vitals wnl. pt in wheelchair, points to where pain is. No other complaints. States he has s een his doctors and option for surgery was provided however pt refuses surgery. suspect MSK pain, low suspicion for AAA, cauda equina, cord compression, spinal cord lesions, new fractures. will give lidoderm patch and discharge. Discharge - Discharge Information Problems reviewed: Yes Clinical Impression/Diagnosis: Chronic back pain Qualifiers: Back pain location: low back pain Back pain laterality: left Sciatica presence: without sciatica Qualified Code(s): M54.5 - Low back pain Condition: Stable Disposition: HOME - Admission No - Follow up/Referral - Patient Discharge Instructions Patient Printed Discharge Instructions: Managing Chronic Low Back Pain Additional Instructions: You were seen in the ER today for back pain. You were given a Lidoderm patch. Please follow up with your doctor for options in controlling the back pain. Referrals have been provided. Come back to the ER if you have worsening pain, cannot walk, cannot feel your legs, have difficulty with urination/defecation or if any new or concerning symptom develops. Thank you - Post Discharge Activity
[2020-01-02 17:21] VITALS: BP 150/61; PULSE 90; TEMP 98.3; BMI 34.8
--- NOTE | 2020-01-02 17:33 | PDOC ---
Attending Attestation - Resident Resident Name: Elizabeth West - ED Attending Attestation I have performed the following: I have examined & evaluated the patient, The case was reviewed & discussed with the resident, I agree w/resident's findings & plan, Exceptions are as noted - HPI HPI: 01/02/20 17:29 64 yo M h/o chronic back pain and etoh abuse, well known to this ED p/w low back pain. Denies any new trauma. States feels similar to his chronic back pain. Did not take anything for pain prior to coming to the ED. States tylenol does not work. States he has seen his PMD for his pain and surgery was recommended however patient refused. No numbness or weakness in extremities. No changes in bowel or bladder. No other complaints. - Physicial Exam PE: 01/02/20 17:31 General: well appearing Chest: CTAB, good air entry CVS: + s1 s2, RRR Abdomen: obese limiting exam, soft, nt, no rebound, no guarding Back: no midline or parapsinal ttp Extremities: strength 5/5 b/l LEs and b/l upper extremities, FROM, sensation intact to light touch - Medical Decision Making 01/02/20 17:32 64 yo M with chronic back pain p/w back pain similar to prior, no signs/symptoms concerning for cord compression. Plan: -lidoderm patch for pain -d/c with return precautions, recommend PMD f/u This clinical encounter is taking place during a federal and state health care emergency attributable to the novel Forrester Virus pandemic. The [employer] of the Department of Health and Human Services has declared, pursuant to the Public Health Service Act 319F-3 (42 U.S.C. 247d-6d), that a covered persons activities related to medical countermeasures against COVID-19 will be immune from liability under Federal and State law. Discharge - Discharge Information Problems reviewed: Yes Clinical Impression/Diagnosis: Chronic back pain Qualifiers: Back pain location: low back pain Back pain laterality: left Sciatica presence: without sciatica Qualified Code(s): M54.5 - Low back pain Condition: Stable Disposition: HOME - Follow up/Referral - Patient Discharge Instructions Additional Instructions: You were seen in the ER today for back pain. You were given a Lidoderm patch. Please follow up with your doctor for options in controlling the back pain. Refe rrals have been provided. Come back to the ER if you have worsening pain, cannot walk, cannot feel your legs, have difficulty with urination/defecation or if any new or concerning symptom develops. Thank you - Post Discharge Activity
[2020-01-02] MEDS ORDERED: LIDOCAINE PATCH REMOVAL MC SCH (22:00)
== END 2020-01-02 17:36 | disposition home or self-care (01) ==
LOC: JER 16:23
DX: M54.5 Low back pain (principal)
CPT/HCPCS: 99283-25

== ENCOUNTER 2020-01-02 21:43 | Emergency (ER) | payer OTHER ==
--- NOTE | 2020-01-02 22:01 | PDOC ---
Rapid Medical Evaluation Chief Complaint: Substance Abuse Time Seen by Provider: 01/02/20 21:53 Medical Evaluation: Allergies Allergy/AdvReac Type Severity Reaction Status Date / Time Fish Containing Products Allergy Mild Swelling Verified 12/26/19 21:41 No Known Drug Allergies Allergy Verified 12/26/19 21:41 01/02/20 21:54 64 year old male BIBA c/o alcohol abuse and back pain. patient frequent visits to the ER just discharged today from the ER as per EMS, [place] no signs of trauma patient is alert talking PE: patient alert disheveled A; alcohol abuse P; patient to the ER. Discharge Disposition - Diagnosis Alcohol abuse Chronic back pain Qualifiers: Back pain location: low back pain Back pain laterality: unspecified Sciatica presence: unspecified whether sciatica present Qualified Code(s): M54.5 - Low back pain; G89.29 - Other chronic pain - Referrals - Patient Instructions - Post Discharge Activity
[2020-01-02 22:05] VITALS: BP 110/54; PULSE 93; TEMP 98.6; BMI 37.1
--- NOTE | 2020-01-03 03:31 | PDOC ---
Attending Attestation - Resident Resident Name: Wing Sparrow - ED Attending Attestation I have performed the following: I have examined & evaluated the patient, The case was reviewed & discussed with the resident, I agree w/resident's findings & plan - HPI HPI: 01/03/20 03:30 see resident hpi - Physicial Exam PE: 01/03/20 03:31 see resident exam - Medical Decision Making 01/03/20 03:31 64-year-old male well-known to this facility with history of alcohol abuse and chronic back pain No new injuries noted We will plan for DC in the a.m. Discharge - Discharge Information Problems reviewed: Yes Clinical Impression/Diagnosis: Alcohol abuse Chronic back pain Qualifiers: Back pain location: low back pain Back pain laterality: unspecified Sciatica presence: unspecified whether sciatica present Qualified Code(s): M54.5 - Low back pain - Follow up/Referral - Patient Discharge Instructions - Post Discharge Activity
--- NOTE | 2020-01-03 03:41 | PDOC ---
History of Present Illness - General Chief Complaint: Alcohol intoxication Stated Complaint: INTOX,BACK PAIN Time Seen by Provider: 01/02/20 21:53 History Source: Patient Exam Limitations: No Limitations - History of Present Illness Initial Comments: 01/03/20 03:42 HPI: 64yo M well known to this ED, PHM mesothelioma, presenting with "it hurts getting old, I have a sunburn because I fell asleep in the park." Denies chest pain, SOB beyond the usual, cough, fevers, chills, headache, abdominal pain, nausea at present, vomited earlier in the setting of ETOH consumption, no blood or bile. Reports the sunburn on his legs hurts, was here yesterday and reports he was given aloe vera. Says he is an alcoholic, wants to go to [facility] for rehab, does not wish to go to [facility]. Past History - Travel History Traveled outside of the country in the last 30 days: No Close contact w/someone who was outside of country & ill: No - Medical History Allergies/Adverse Reactions: Allergies Allergy/AdvReac Type Severity Reaction Status Date / Time Fish Containing Products Allergy Mild Swelling Verified 12/26/19 21:41 No Known Drug Allergies Allergy Verified 12/26/19 21:41 Home Medications: Ambulatory Orders NK [No Known Home Medication] 12/23/19 Anemia: No Asthma: No Cancer: Yes (mesothelioma lung cancer) Cardiac Disorders: No CVA: No COPD: No CHF: No DVT: No Dementia: No Diabetes: No Dialysis: No GI Disorders: No Disorders: No HTN: Yes (non compliant with meds.) Hypercholesterolemia: Yes Kidney Stones: No Liver Disease: Yes (ETOH abuse) Psychiatric Problems: Yes (ETOH abuse) Seizures: No Thyroid Disease: No Lung CA: Yes (Mesothelioma) - Surgical History Abdominal Surgery: No Appendectomy: No Cardiac Surgery: No Cholecystectomy: No Lung Surgery: No Neurologic Surgery: No Orthopedic Surgery: No - Reproductive History Testicular Surgery: No - Immunization History Td Vaccination: Yes TDAP Vaccination: Yes Immunization Up to Date: Yes - Psycho-Social/Smoking History Smoking Status: No Smoking History: Never smoked Have you smoked in the past 12 months: No Number of Cigarettes Smoked Daily: 6 If you are a former smoker, when did you quit?: 0 Cigars Per Day: 0 'Breaking Loose' booklet given: 09/22/17 - Substance Abuse Hx (Audit-C & DAST Scrn) How often the patient has a drink containing alcohol: 4 0r more times/wk Number of drinks the patient has on a typical day: 10 or more How often the patient has six or more drinks on one occasion: Daily or almost daily Score: In Men: 4 or > Positive; In Women: 3 or > Positive: 12 Screen Result (Pos requires Nsg. Audit-10AR): Positive In the last yr the pt used illegal drug/Rx for NonMed reason: No Score: Yes response is considered Positive: 0 Screen Result (Positive result requires Nsg. DAST-10): Negative Review of Systems - Review of Systems Able to Perform ROS?: Yes Is the patient limited Frisian proficient: Yes Constitutional: No: Chills, Diaphoresis, Fever, Weakness HEENTM: No: Recent change in vision, Throat Pain Respiratory: Yes: Shortness of Breath (chronic). No: Cough Cardiac (ROS): No: Chest Pain, Palpitations, Syncope ABD/GI: Yes: Nausea (after ETOH). No: Constipated, Diarrhea, Vomiting Musculoskeletal: Yes: Joint Pain, Muscle Pain. No: Muscle Weakness Integumentary: No: Bruising, Pruritus, Rash Neurological: No: Headache, Numbness, Tingling, Weakness Psychiatric: Yes: Stressors. No: Change in Appetite Endocrine: No: Increased Thirst, Increased Urine Hematologic/Lymphatic: No: Anemia, Blood Clots, Easy Bleeding All Other Systems: Reviewed and Negative *Physical Exam - Vital Signs Last Vital Signs Temp Pulse Resp BP Pulse Ox 98.6 F 93 H 19 110/54 L 99 01/02/20 21:53 01/02/20 21:53 01/02/20 21:53 01/02/20 21:53 01/02/20 21:53 - Physical Exam 01/03/20 03:49 Vitals reviewed: Afebrile, vitals stable GEN: Well appearing, appears stated age, NAD, comfortable. Malodorous. AAOx3. HEENT: NCAT, EOMI, PERRL. Sclera anicteric, non-injected. No facial asymmetry. Moist mucous membranes. Normal voice. Trachea midline. CV: RRR, S1/S2, no murmurs / rubs / gallops appreciated. LUNG: CTABL, normal work of breathing. No wheezes, rales, rhonchi. No cough. Speaking full sentences. GI: Soft, NTND, +BS, no guarding, no rebound. No masses. EXTREMITIES: 2+ distal pulses. No clubbing / cyanosis. No gross deformity in any extremity. SKIN: Warm, dry, no rashes appreciated, non-jaundiced. Sunburn to bilateral knees down no blisters, pealing sunburn on scalp. PSYCH: Normal mood and tearful affect while talking about family. Cooperative and appropriate. NEURO: CN grossly intact. Moving all extremities well. Normal strength and sensation grossly. Medical Decision Making - Medical Decision Making 01/03/20 03:45 64yo M well known to this ED, PHM mesothelioma, presenting with "it hurts gett ing old, I have a sunburn because I [place] the park." No acute medical complaints. Stable vitals, normal exam, sunburn to legs - no blisters, pealing on scalp. - [facility] Dispo: Home Discharge - Discharge Information Problems reviewed: Yes Clinical Impression/Diagnosis: Alcohol abuse Chronic back pain Qualifiers: Back pain location: low back pain Back pain laterality: unspecified Sciatica presence: unspecified whether sciatica present Qualified Code(s): M54.5 - Low back pain Condition: Stable Disposition: HOME - Admission No - Follow up/Referral - Patient Discharge Instructions Patient Printed Discharge Instructions: DI for Alcohol Abuse Additional Instructions: Return with any new or worsening complaints. - Post Discharge Activity
== END 2020-01-03 05:55 | disposition home or self-care (01) ==
LOC: JER 21:43
DX: M54.5 Low back pain (principal); G89.29 Other chronic pain
CPT/HCPCS: 99283-25

== ENCOUNTER 2020-01-03 15:37 | Emergency (ER) | payer OTHER ==
--- NOTE | 2020-01-03 15:49 | PDOC ---
Rapid Medical Evaluation Time Seen by Provider: 01/03/20 15:43 Medical Evaluation: Allergies Allergy/AdvReac Type Severity Reaction Status Date / Time Fish Containing Products Allergy Mild Swelling Verified 12/26/19 21:41 No Known Drug Allergies Allergy Verified 12/26/19 21:41 01/03/20 15:47 CC: here for public intox and pt feels dehydrated Exam: noted 1st degree lower extremity burn , slightly intoxicated but conversive Plan: given pitcher of water Discharge Disposition - Diagnosis Alcohol intoxication - Referrals - Patient Instructions - Post Discharge Activity
[2020-01-03 15:53] VITALS: BP 105/59; PULSE 89; TEMP 98; BMI 32.3
--- NOTE | 2020-01-03 16:56 | PDOC ---
History of Present Illness - General Chief Complaint: Alcohol intoxication Stated Complaint: INTOX Time Seen by Provider: 01/03/20 15:43 History Source: Patient, Old Records Exam Limitations: No Limitations - History of Present Illness Initial Comments: 01/03/20 17:21 Patients Doctor(s): PCP none History of Present Illness: 62-year-old male with past mental history of mesothelioma with long history of EtOH abuse and multiple ER visits and admission secondary to EtOH abuse is presented to the emergency department by EMS secondary to public intoxication. Patient presently states that he is experiencing pain to his lower back. Patient is not slurring his speech at this time but is unstable in gait and is intoxicated. Patient is presently able to deny chest pain, back pain, dizziness, blurred vision, nausea/vomiting, diarrhea, constipation, fever or chills. Patient denies use of any [id number] medication for the treatment of this complaint. Patient denies any sick contacts, travel outside the [place] or contact with any sick individuals who have been outside the [place]. Review of Systems: GENERAL/CONSTITUTIONAL: No fever or chills. No weakness. No weight change. HEAD, EYES, EARS, NOSE AND THROAT: No change in vision. No ear pain or discharge. No sore throat. CARDIOVASCULAR: No chest pain or shortness of breath. RESPIRATORY: No cough, wheezing, or hemoptysis. GASTROINTESTINAL: No nausea, vomiting, diarrhea or constipation. No rectal bleeding. GENITOURINARY: No dysuria, frequency, or change in urination. MUSCULOSKELETAL: Lower back pain. Bilateral knee pain. SKIN AND BREASTS: No rash or easy bruising. NEUROLOGIC: No headache, vertigo, loss of consciousness, or loss of sensation. PSYCHIATRIC: EtOH abuse, No depression or anxiety. ENDOCRINE: No increased thirst. No abnormal weight change. HEMATOLOGIC/LYMPHATIC: No anemia, easy bleeding, or history of blood clots. ALLERGIC/IMMUNOLOGIC: No hives or skin allergy. No latex allergy. Past Medical History: Mesothelioma Family History: Mother with cancer Social History: EtOH abuse Surgical history: Denies Allergies: No known drug allergies Past History - Medical History Allergies/Adverse Reactions: Allergies Allergy/AdvReac Type Severity Reaction Status Date / Time Fish Containing Products Allergy Mild Swelling Verified 01/03/20 15:51 No Known Drug Allergies Allergy Verified 01/03/20 15:51 Home Medications: Ambulatory Orders NK [No Known Home Medication] 12/23/19 Anemia: No Asthma: No Cancer: Yes (mesothelioma lung cancer) Cardiac Disorders: No CVA: No COPD: No CHF: No DVT: No Dementia: No Diabetes: No Dialysis: No GI Disorders: No Disorders: No HTN: Yes (non compliant with meds.) Hypercholesterolemia: Yes Kidney Stones: No Liver Disease: Yes (ETOH abuse) Psychiatric Problems: Yes (ETOH abuse) Seizures: No Thyroid Disease: No Lung CA: Yes (Mesothelioma) - Surgical History Abdominal Surgery: No Appendectomy: No Cardiac Surgery: No Cholecystectomy: No Lung Surgery: No Neurologic Surgery: No Orthopedic Surgery: No - Reproductive History Testicular Surgery: No - Immunization History Td Vaccination: Yes TDAP Vaccination: Yes Immunization Up to Date: Yes - Psycho-Social/Smoking History Smoking Status: No Smoking History: Never smoked Have you smoked in the past 12 months: No Number of Cigarettes Smoked Daily: 6 If you are a former smoker, when did you quit?: 0 Cigars Per Day: 0 Information on smoking cessation initiated: No 'Breaking Loose' booklet given: 09/22/17 - Substance Abuse Hx (Audit-C & DAST Scrn) Number of drinks the patient has on a typical day: 5 or 6 How often the patient has six or more drinks on one occasion: Daily or almost daily Score: In Men: 4 or > Positive; In Women: 3 or > Positive: 6 Screen Result (Pos requires Nsg. Audit-10AR): Positive In the last yr the pt used illegal drug/Rx for NonMed reason: No Score: Yes response is considered Positive: 0 Screen Result (Positive result requires Nsg. DAST-10): Negative *Physical Exam - Vital Signs Last Vital Signs Temp Pulse Resp BP Pulse Ox 98 F 89 19 105/59 L 97 01/03/20 15:49 01/03/20 15:49 01/03/20 15:49 01/03/20 15:49 01/03/20 15:49 - Physical Exam General Appearance: Yes: Disheveled, Alcohol on Breath Cardiovascular: positive: Regular Rhythm, Regular Rate, Edema (Bilateral lower extremity. +3 pitting. ) Extremity: positive: Pedal Edema, Erythema (Anterior erythema present to bilateral lower extremities well demarcated at the knee where encrusted dirt was present. Right lower extremity with circumferential erythema.) Medical Decision Making - Medical Decision Making 01/03/20 17:23 A/P: Patient is a male with history of mesothelioma and EtOH abuse presented to the emergency department by EMS secondary to public intoxication. Duplex Dopplers bilateral lower extremities If negative will give 1 dose of Dalvance as patient had creatinine 0.6 within the past 10 days. 01/03/20 17:58 Patient refusing recommended care here in the emergency department and has left the emergency department. Patient has refused to sign paperwork. Patient witnessed ambulating out of the emergency department and up the ambulance ramp with steady gait. Discharge - Discharge Information Problems reviewed: Yes Clinical Impression/Diagnosis: Alcohol intoxication Condition: Fair Disposition: ELOPED - Follow up/Referral Referrals: Ken Bridges MD [Primary Care Provider] - - Patient Discharge Instructions - Post Discharge Activity
== END 2020-01-03 17:30 | disposition left against medical advice (07) ==
LOC: JER 15:37
DX: F10.129 Alcohol abuse with intoxication, unspecified (principal)
CPT/HCPCS: 99282-25

== ENCOUNTER 2020-01-04 19:10 | Emergency (ER) | payer OTHER ==
[2020-01-04 19:26] VITALS: BP 113/73; PULSE 71; TEMP 98; BMI 37.1
--- NOTE | 2020-01-04 20:33 | PDOC ---
History of Present Illness - General History Source: Patient, Old Records Exam Limitations: No Limitations - History of Present Illness Initial Comments: 01/04/20 20:34 Patients Doctor(s): PCP none History of Present Illness: 62-year-old male with past mental history of mesothelioma with long history of EtOH abuse and multiple ER visits and admission secondary to EtOH abuse is presented to the emergency department by EMS secondary to public intoxication. Patient presently states that he is experiencing pain to his lower back. Patient is not slurring his speech at this time but is unstable in gait and is intoxicated. Patient is presently able to deny chest pain, back pain, dizziness, blurred vision, nausea/vomiting, diarrhea, constipation, fever or chills. Patient denies use of any qmqg-ukj-eqrvuaz medication for the treatment of this complaint. Patient denies any sick contacts, travel outside the [place] or contact with any sick individuals who have been outside the [place]. Review of Systems: GENERAL/CONSTITUTIONAL: No fever or chills. No weakness. No weight change. HEAD, EYES, EARS, NOSE AND THROAT: No change in vision. No ear pain or discharge. No sore throat. CARDIOVASCULAR: No chest pain or shortness of breath. RESPIRATORY: No cough, wheezing, or hemoptysis. GASTROINTESTINAL: No nausea, vomiting, diarrhea or constipation. No rectal bleeding. GENITOURINARY: No dysuria, frequency, or change in urination. MUSCULOSKELETAL: Lower back pain. Bilateral knee pain. SKIN AND BREASTS: No rash or easy bruising. NEUROLOGIC: No headache, vertigo, loss of consciousness, or loss of sensation. PSYCHIATRIC: EtOH abuse, No depression or anxiety. ENDOCRINE: No increased thirst. No abnormal weight change. HEMATOLOGIC/LYMPHATIC: No anemia, easy bleeding, or history of blood clots. ALLERGIC/IMMUNOLOGIC: No hives or skin allergy. No latex allergy. Past Medical History: Mesothelioma Family History: Mother with cancer Social History: EtOH abuse Surgical history: Denies Allergies: No known drug allergies <Umer Perla - Last Filed: 01/05/20 01:52> <Rusty Montgomery - Last Filed: 01/05/20 06:33> - General Chief Complaint: Substance Abuse Stated Complaint: INTOXICATED Time Seen by Provider: 01/04/20 20:32 Past History - Medical History Anemia: No Asthma: No Cancer: Yes (mesothelioma lung cancer) Cardiac Disorders: No CVA: No COPD: No CHF: No DVT: No Dementia: No Diabetes: No Dialysis: No GI Disorders: No Disorders: No HTN: Yes (non compliant with meds.) Hypercholesterolemia: Yes Kidney Stones: No Liver Disease: Yes (ETOH abuse) Psychiatric Problems: Yes (ETOH abuse) Seizures: No Thyroid Disease: No Lung CA: Yes (Mesothelioma) - Surgical History Abdominal Surgery: No Appendectomy: No Cardiac Surgery: No Cholecystectomy: No Lung Surgery: No Neurologic Surgery: No Orthopedic Surgery: No - Reproductive History Testicular Surgery: No - Immunization History Td Vaccination: Yes TDAP Vaccination: Yes Immunization Up to Date: Yes - Psycho-Social/Smoking History Smoking Status: No Smoking History: Never smoked Have you smoked in the past 12 months: No Number of Cigarettes Smoked Daily: 6 If you are a former smoker, when did you quit?: 0 Cigars Per Day: 0 'Breaking Loose' booklet given: 09/22/17 - Substance Abuse Hx (Audit-C & DAST Scrn) How often the patient has a drink containing alcohol: 4 0r more times/wk Score: In Men: 4 or > Positive; In Women: 3 or > Positive: 4 Screen Result (Pos requires Nsg. Audit-10AR): Positive <Umer Perla - Last Filed: 01/05/20 01:52> <Rusty Montgomery - Last Filed: 01/05/20 06:33> - Medical History Allergies/Adverse Reactions: Allergies Allergy/AdvReac Type Severity Reaction Status Date / Time Fish Containing Products Allergy Mild Swelling Verified 01/04/20 19:25 No Known Drug Allergies Allergy Verified 01/04/20 19:25 Home Medications: Ambulatory Orders NK [No Known Home Medication] 12/23/19 *Physical Exam - Vital Signs Last Vital Signs Temp Pulse Resp BP Pulse Ox 98 F 71 18 113/73 99 01/04/20 19:24 01/04/20 19:24 01/04/20 19:24 01/04/20 19:24 01/04/20 19:24 <Umer Perla - Last Filed: 01/05/20 01:52> - Vital Signs Last Vital Signs Temp Pulse Resp BP Pulse Ox 98 F 71 18 113/73 99 01/04/20 19:24 01/04/20 19:24 01/04/20 19:24 01/04/20 19:24 01/04/20 19:24 <Rusty Montgomery - Last Filed: 01/05/20 06:33> ED Treatment Course - Medications Given in the ED: ED Medications Discontinued Medications Generic Name Dose Route Start Last Admin Trade Name Francisco Javier PRN Reason Stop Dose Admin Dalbavancin 1,500 mg/ Dextrose 500 mls @ 1,000 mls/hr 01/04/20 21:25 01/04/20 22:02 IVPB 01/04/20 21:54 1,000 mls/hr ONCE ONE Administration <Rusty Montgomery - Last Filed: 01/05/20 06:33> Medical Decision Making - Medical Decision Making 01/04/20 20:33 A/P: Patient is a male with history of mesothelioma and EtOH abuse presented to the emergency department by EMS secondary to public intoxication. Duplex Dopplers bilateral lower extremities If negative will give 1 dose of Dalvance as patient had creatinine 0.6 within the past 10 days. 01/04/20 21:24 Duplex Doppler as read by Dr. Hubbard: No evidence of deep vein thrombosis. Small Roberts's cyst is appreciated. Dalvance IV Monitor until achieves clinical sobriety 01/05/20 01:53 Reassessment of patient reveals patient has not achieved clinical sobriety at t his time. Patient is having a difficult time with ambulation secondary to alcohol intoxication. Patient has been signed out to Dr. Montgomery for continued evaluation and disposition. <mUer Perla - Last Filed: 01/05/20 01:52> - Medical Decision Making 01/05/20 06:32 Pt demonstrates clinical sobriety at this time, able to walk with baseline gait. Pt safe for DC <Rusty Montgomery - Last Filed: 01/05/20 06:33> Discharge - Discharge Information Problems reviewed: Yes <Umer Perla - Last Filed: 01/05/20 01:52> - Admission No <Rusty Montgomery - Last Filed: 01/05/20 06:33> - Discharge Information Clinical Impression/Diagnosis: Alcohol use disorder Cellulitis Qualifiers: Site of cellulitis: extremity Site of cellulitis of extremity: lower extremity Laterality: right Qualified Code(s): L03.115 - Cellulitis of right lower limb Disposition: HOME - Patient Discharge Instructions Patient Printed Discharge Instructions: DI for Alcohol Abuse
--- NOTE | 2020-01-04 20:35 | PDOC ---
*Physical Exam - Vital Signs Last Vital Signs Temp Pulse Resp BP Pulse Ox 98 F 71 18 113/73 99 01/04/20 19:24 01/04/20 19:24 01/04/20 19:24 01/04/20 19:24 01/04/20 19:24 Medical Decision Making - Medical Decision Making 01/04/20 20:35 Patient seen by the advanced practice provider under my supervision. Ancillary testing reviewed as necessary. I agree with plan as outlined by the advanced practice provider. Discharge - Discharge Information Problems reviewed: Yes Clinical Impression/Diagnosis: Alcohol use disorder - Follow up/Referral - Patient Discharge Instructions - Post Discharge Activity
[2020-01-04] MEDS ORDERED: DALBAVANCIN HCL 1,500 MG in DEXTROSE 5%-WATER - 500 ML IVPB ONE (21:25)
[2020-01-04] MEDS ORDERED: DALBAVANCIN HCL 500 MG VIAL (RESTRICTED TO ID ONLY) IVPB ONE (21:40)
== END 2020-01-05 06:52 | disposition home or self-care (01) ==
LOC: JER 19:10
PROC: 3E013VG Introduction of Insulin into Subcutaneous Tissue, Percutaneous Approach (ICD-10-PCS; principal; 2020-01-04)
DX: L03.115 Cellulitis of right lower limb (principal); F10.10 Alcohol abuse, uncomplicated
CPT/HCPCS: 93971-TC; 99284-25; J0875

== ENCOUNTER 2020-01-06 21:46 | Inpatient (IN) | payer OTHER ==
[2020-01-06 21:51] VITALS: BMI 37.1
--- NOTE | 2020-01-06 21:51 | PDOC ---
Rapid Medical Evaluation Time Seen by Provider: 01/06/20 21:48 Medical Evaluation: Allergies Allergy/AdvReac Type Severity Reaction Status Date / Time Fish Containing Products Allergy Mild Swelling Verified 01/04/20 19:25 No Known Drug Allergies Allergy Verified 01/04/20 19:25 01/06/20 21:48 Pt well known to this ED presents for intox. Also reports his chronic low back pain. States he drank "too much" Exam: slurred speech, alcohol on breath Orders: nothing Pt to proceed to the ER for further evaluation Discharge Disposition - Diagnosis Alcohol dependence with intoxication - Referrals - Patient Instructions - Post Discharge Activity
--- NOTE | 2020-01-07 01:17 | PDOC ---
History of Present Illness - General Chief Complaint: Alcohol intoxication Stated Complaint: intoxicated Time Seen by Provider: 01/06/20 21:48 History Source: Patient Exam Limitations: No Limitations - History of Present Illness Initial Comments: 01/07/20 01:17 64 yo male pmh EtOH abuse, alcohol abuse, mesothelioma, chronic back pain, previously diagnosed COVID 19 presenting w 2d progressive worsening BLE redness/swelling/pain. Said his legs got sunburnt recently. Also admits to recent EtOH use, recent fall without hitting head, and chronic unchanged low back pain. Previous cultures grew MRSA, resistant to multi organisms including clindamycin. Pt is willing to be admitted to treat leg pain. Denies chest pain, cough, SOB, fever. Past History - Medical History Allergies/Adverse Reactions: Allergies Allergy/AdvReac Type Severity Reaction Status Date / Time Fish Containing Products Allergy Mild Swelling Verified 01/06/20 21:51 No Known Drug Allergies Allergy Verified 01/06/20 21:51 Home Medications: Ambulatory Orders NK [No Known Home Medication] 12/23/19 Anemia: No Asthma: No Cancer: Yes (mesothelioma lung cancer) Cardiac Disorders: No CVA: No COPD: No CHF: No DVT: No Dementia: No Diabetes: No Dialysis: No GI Disorders: No Disorders: No HTN: Yes (non compliant with meds.) Hypercholesterolemia: Yes Kidney Stones: No Liver Disease: Yes (ETOH abuse) Psychiatric Problems: Yes (ETOH abuse) Seizures: No Thyroid Disease: No Lung CA: Yes (Mesothelioma) - Surgical History Abdominal Surgery: No Appendectomy: No Cardiac Surgery: No Cholecystectomy: No Lung Surgery: No Neurologic Surgery: No Orthopedic Surgery: No - Reproductive History Testicular Surgery: No - Immunization History Td Vaccination: Yes TDAP Vaccination: Yes Immunization Up to Date: Yes - Psycho-Social/Smoking History Smoking Status: No Smoking History: Never smoked Have you smoked in the past 12 months: No Number of Cigarettes Smoked Daily: 6 If you are a former smoker, when did you quit?: 0 Cigars Per Day: 0 'Breaking Loose' booklet given: 09/22/17 - Substance Abuse Hx (Audit-C & DAST Scrn) How often the patient has a drink containing alcohol: 4 0r more times/wk How often the patient has six or more drinks on one occasion: Daily or almost daily Score: In Men: 4 or > Positive; In Women: 3 or > Positive: 8 Screen Result (Pos requires Nsg. Audit-10AR): Positive In the last yr the pt used illegal drug/Rx for NonMed reason: No Score: Yes response is considered Positive: 0 Screen Result (Positive result requires Nsg. DAST-10): Negative Review of Systems - Review of Systems Constitutional: No: Chills, Fever HEENTM: No: Eye Pain, Nose Congestion Respiratory: No: Cough, Shortness of Breath Cardiac (ROS): No: Chest Pain, Palpitations ABD/GI: No: Abdominal Distended, Nausea, Vomiting : No: Burning, Pain Musculoskeletal: No: Back Pain, Joint Pain Integumentary: No: Bruising, Flushing Neurological: No: Headache, Seizure Psychiatric: No: Anxiety, Depression Endocrine: No: Intolerance to Cold, Intolerance to Heat *Physical Exam - Vital Signs Last Vital Signs Temp Pulse Resp BP Pulse Ox 97 F L 90 18 118/70 93 L 01/06/20 21:49 01/06/20 21:49 01/06/20 21:49 01/06/20 21:49 01/06/20 21:49 - Physical Exam General Appearance: Yes: Nourished, Appropriately Dressed, Mild Distress HEENT: positive: EOMI, DOUGLAS, Normal Voice, Hearing Grossly Normal. negative: Scleral Icterus (R), Scleral Icterus (L) Respiratory/Chest: positive: Lungs Clear, Normal Breath Sounds. negative: Chest Tender, Respiratory Distress Cardiovascular: positive: Regular Rhythm, Regular Rate, S1, S2, Murmur Vascular Pulses: Dorsalis-Pedis (R): 1+, Doralis-Pedis (L): 1+ Gastrointestinal/Abdominal: positive: Normal Bowel Sounds, Flat, Soft. negative: Tender, Organomegaly Extremity: positive: Other (2+ pitting edema/erythema/tenderness to knees kareem) Integumentary: positive: Dry, Warm Neurologic: positive: Alert, Normal Response, Motor Strength 5/5 (BLE), Responsive. negative: Numbness (BLE) ED Treatment Course - LABORATORY CBC & Chemistry Diagram: 01/07/20 02:55 01/07/20 02:55 Medical Decision Making - Medical Decision Making 01/07/20 02:20 64 yo male pmh EtOH abuse, alcohol abuse, mesothelioma, chronic back pain, previously diagnosed COVID 19 presenting w 2d progressive worsening BLE redness/swelling/pain. Neurovascular intact BLE Likely cellulitis. Low concern for CHF exacerbation (BNP wnl) Also hypokalemia 2.7, unchanged No evidence of etoh withdrawal Refused EKG/CXR Given vanc, ancef, tylenol, 1L NS, PO+IV KCl Admit m/s BLE cellulitis, alcohol intoxication, hypoK Discharge - Discharge Information Problems reviewed: Yes Clinical Impression/Diagnosis: Hypokalemia Alcohol dependence with intoxication Qualifiers: Complication of substance-induced condition: uncomplicated Qualified Code(s): F10.220 - Alcohol dependence with intoxication, uncomplicated Cellulitis Qualifiers: Site of cellulitis: extremity Site of cellulitis of extremity: lower extremity Laterality: left Qualified Code(s): L03.116 - Cellulitis of left lower limb Condition: Stable - Follow up/Referral - Patient Discharge Instructions - Post Discharge Activity
--- NOTE | 2020-01-07 01:35 | PDOC ---
Attending Attestation - Resident Resident Name: Bob Green - HPI HPI: 01/07/20 04:46 Pt presents to the ED complaining of bilateral leg pain and swelling. History of chronic alcoholism, very well known to the ED. Denies other complaints. - Physicial Exam PE: 01/07/20 04:53 Agree with resident exam. + erythema to bilateral lower extremities from ankles to knees. no open wounds. - Medical Decision Making 01/07/20 05:01 Pt presents to the ED complaining of bilateral lower extremity erythema that is consistent with cellulitis. Will treat for cellulitis and admit to medicine for IV antibiotics. Discharge - Discharge Information Problems reviewed: Yes Clinical Impression/Diagnosis: Hypokalemia Alcohol dependence with intoxication Qualifiers: Complication of substance-induced condition: uncomplicated Qualified Code(s): F10.220 - Alcohol dependence with intoxication, uncomplicated Cellulitis Qualifiers: Site of cellulitis: extremity Site of cellulitis of extremity: lower extremity Laterality: left Qualified Code(s): L03.116 - Cellulitis of left lower limb - Admission Yes - Follow up/Referral - Patient Discharge Instructions - Post Discharge Activity
[2020-01-07] MEDS ORDERED: VANCOMYCIN 1 GM in D5W (PRE-DOCKED) 1,000 MG/250 ML IVPB ONE (02:12)
[2020-01-07] MEDS ORDERED: CEFAZOLIN 2 GM in DEXTROSE 5%-WATER - 50 ML IVPB ONE (02:12)
[2020-01-07] MEDS ORDERED: SODIUM CHLORIDE 0.9% 500 ML INFUS.BAG IV ONE (02:13)
[2020-01-07] MEDS ORDERED: ACETAMINOPHEN 500 MG TABLET (FP) PO ONE ×2 (02:13→02:22)
[2020-01-07] MEDS ORDERED: CEFAZOLIN 2 GM/D5W 2 GM/50 ML ML IVPB ONE (02:53)
[2020-01-07] MEDS ORDERED: ACETAMINOPHEN 325 MG TABLET (FP) ONE (02:53)
[2020-01-07] MEDS ORDERED: VANCOMYCIN 1 GRAM (PRE-DOCKED) 1,000 MG/250 ML BAG IVPB ONE (02:53)
[2020-01-07 03:31] LABS: EOS % 3.2 % (0-4.5); HEMOGLOBIN 9.7 GM/dL (11.7-16.9); LYMPH % 31.7 % (8-40); MCH 26.6 pg (25.7-33.7); MCHC 31.3 g/dl (32.0-35.9); MEAN PLT VOLUME 7.1 fl (7.5-11.1); MONO % 7.3 % (3.8-10.2); NEUT % 56.8 % (42.8-82.8); PLATELET COUNT 195 K/MM3 (134-434); RBC 3.65 M/mm3 (4.00-5.60); RDW 19.9 % (11.9-15.9); WHITE BLOOD COUNT 4.2 K/mm3 (4.0-10.0)
[2020-01-07 04:18] LABS: ALBUMIN 2.6 g/dl (3.4-5.0); BILIRUBIN,TOTAL 0.4 mg/dL (0.2-1); BLOOD UREA NITROGEN 5.2 mg/dL (7-18); CALCIUM 7.7 mg/dL (8.5-10.1); CREATININE 0.6 mg/dL (0.55-1.3); N-TERMINAL BNP 52.6 pg/ml (5-125)
[2020-01-07 04:28] LABS: POTASSIUM 2.7 mmol/L (3.5-5.1)
[2020-01-07] MEDS ORDERED: POTASSIUM CHLORIDE ORAL LIQUID 20 MEQ/15 ML PO ONE (04:49)
[2020-01-07] MEDS ORDERED: POTASSIUM CHLORIDE ORAL LIQUID 20 MEQ/15 ML ONE (04:56)
[2020-01-07] MEDS ORDERED: KCL 10 MEQ IVPB 30 MEQ/300 ML INFUS.BAG IVPB ONE (04:56)
[2020-01-07] MEDS: KCL 10 MEQ IVPB 10 MEQ/100 ML INFUS.BAG IVPB SCH ×4 (05:13→19:54)
--- NOTE | 2020-01-07 06:31 | HP ---
CHIEF COMPLAINT: PCP: none HISTORY OF PRESENT ILLNESS: Sunil craig is a 64 year old homeless male with a past medical history of ED admissions for alcohol abuse and back pain, mesothelioma, COVID 19 diagnosis, positive cultures for MRSA who presents to the ED with two days of increased bilateral worsening edema, erythema with pain upon palpation. THe patient reports that he had been out in the sun and had recent admissions for sunburn. Pt is lethargic and non compliant with full history and physical. PATIENT REFUSED EGK, CXR, FURTHER FOLLOW UP LAB DRAWS ER course was notable for: (1) K 2.7 - 40 po and 30 IV Recent Travel: no PAST MEDICAL HISTORY: HPI PAST SURGICAL HISTORY: Pt not cooperative Smoking: Not cooperative Alcohol: last drink yesterday 1 pint of vodka Drugs: not cooperative Allergies Fish Containing Products Allergy (Mild, Verified 01/06/20 21:51) Swelling No Known Drug Allergies Allergy (Verified 01/06/20 21:51) HOME MEDICATIONS: Home Medications Medication Instructions Recorded NK [No Known Home Medication] 12/23/19 REVIEW OF SYSTEMS CONSTITUTIONAL: FEVER HEENT: CARDIOVASCULAR: Absent: chest pain, syncope, palpitations, irregular heart rate, lightheadedness, peripheral edema RESPIRATORY: Absent: cough, shortness of breath, dyspnea with exertion, orthopnea, wheezing, stridor, hemoptysis GASTROINTESTINAL:supra pubic tenderness MUSCULOSKELETAL: back pain PHYSICAL EXAMINATION Vital Signs - 24 hr 01/06/20 21:49 Temperature 97 F L Pulse Rate 90 Respiratory 18 Rate Blood Pressure 118/70 O2 Sat by Pulse 93 L Oximetry (%) GENERAL: Awake, alert, and fully oriented, in no acute distress. HEAD: Normal with no signs of trauma. EYES: Pupils equal, round and reactive to light, extraocular movements intact, sclera anicteric, conjunctiva clear. No lid lag. EARS, NOSE, THROAT: Ears normal, nares patent, oropharynx clear without exudates. Moist mucous membranes. NECK: Normal range of motion, supple without lymphadenopathy, JVD, or masses. LUNGS: Breath sounds equal, clear to auscultation bilaterally. No wheezes, and no crackles. No accessory muscle use. HEART: Regular rate and rhythm, normal S1 and S2 without murmur, rub or gallop. ABDOMEN: Soft, nontender, not distended, normoactive bowel sounds, no guarding, no rebound, no masses. No hepatomegaly or splenomegaly. MUSCULOSKELETAL: Normal range of motion at all joints. No bony deformities or tenderness. No CVA tenderness. UPPER EXTREMITIES: 2+ pulses, warm, well-perfused. No cyanosis. No clubbing. No peripheral edema. LOWER EXTREMITIES: 2+ pulses, ERYTHEMATOUS BILATERALLY. PAIN UPON PALPATION DIFFUSELY. 2+ EDEMA BILATERALLY. Laboratory Results - last 24 hr 01/07/20 01/07/20 02:55 02:55 WBC 4.2 RBC 3.65 L Hgb 9.7 L Hct 31.0 L MCV 85.0 MCH 26.6 MCHC 31.3 L RDW 19.9 H Plt Count 195 MPV 7.1 L Absolute Neuts (auto) 2.4 Neutrophils % 56.8 Lymphocytes % 31.7 D Monocytes % 7.3 Eosinophils % 3.2 D Basophils % 1.0 Nucleated RBC % 0 Sodium 146 H Potassium 2.7 L* Chloride 106 Carbon Dioxide 34 H Anion Gap 6 L BUN 5.2 L Creatinine 0.6 Est GFR (CKD-EPI)AfAm 123.15 Est GFR (CKD-EPI)NonAf 106.25 Random Glucose 82 Calcium 7.7 L Total Bilirubin 0.4 AST 59 H ALT 34 Alkaline Phosphatase 130 H B-Natriuretic Peptide 52.6 Total Protein 6.0 L Albumin 2.6 L ASSESSMENT/PLAN: 64M h/o etoh abuse cellulitis, MRSA, mesothelioma presents to the emergency depa rtment sp fall. Patient's legs are edematous and erythematous and warm to touch. Admitted for cellulitis. patient needs to re-oriented #BL cellulitis vs CVI vs DVT - LA - CPK - CBC/CMP - doppler US LE - consult ID recommendations appreciated -vancomycin 1g - suspected MRSA - blood culture - urine culture # HYPOKALEMIA - K 2.7 - 40po 30IV - suggested to increase to 40po 40 IV post K check - Mg 2g - follow up labs #ETOH withdrawal - CIWA 14 - ativan protocol (AST elevated) - THIAMINE - FOLATE - MAGNESIUM SULFATE 2G IV - mg levels - phosphate levels - UA - UTOX #BACK PAIN - analgesic - tylenol 1g iv #DVT px - heparin sq q8 Visit type - Emergency Visit Emergency Visit: Yes ED Registration Date: 01/07/20 Care time: The patient presented to the Emergency Department on the above date and was hospitalized for further evaluation of their emergent condition. - New Patient This patient is new to me today: Yes Date on this admission: 01/07/20 - Critical Care Critical Care patient: No ATTENDING PHYSICIAN STATEMENT I saw and evaluated the patient. I reviewed the resident's note and discussed the case with the resident. I agree with the resident's findings and plan as documented. SUBJECTIVE: OBJECTIVE: ASSESSMENT AND PLAN:
[2020-01-07] MEDS ORDERED: LORazepam 1 MG TABLET PO PRN (06:33)
[2020-01-07] MEDS: LORazepam 2 MG TABLET PO SCH ×2 (06:36→12:56)
--- NOTE | 2020-01-07 06:36 | PN ---
Teaching Attending Note Name of Resident: Codey Schuster ATTENDING PHYSICIAN STATEMENT I saw and evaluated the patient. I reviewed the resident's note and discussed the case with the resident. I agree with the resident's findings and plan as documented. SUBJECTIVE: 64 years old M with medical history of EtOH abuse mesothelioma, chronic back pain,COVID 19 infection presented to hospital with b/L LE worsening pain, redness and swelling. History of previous MRSA infection. OBJECTIVE: GEN: Normal built not in acute distress HEENT: NCAT, EOMI, PERRL. Sclera anicteric, non-injected. No facial asymmetry. Moist mucous membranes. CV: RRR, S1/S2, no murmurs / rubs / gallops appreciated. LUNG: CTABL, normal work of breathing. No wheezes, rales, rhonchi. No cough. Speaking full sentences. GI: Soft, non tender, no guarding, no rebound. No masses. EXTREMITIES: 2+ distal pulses.B/L LE swelling, redness, warmth and tender to touch NEURO: CN grossly intact. A&o x 3, no focal neurological deficit Last Vital Signs Temp Pulse Resp BP Pulse Ox 97 F L 90 18 118/70 93 L 01/06/20 21:49 01/06/20 21:49 01/06/20 21:49 01/06/20 21:49 01/06/20 21:49 ASSESSMENT AND PLAN: B/L LE cellulitis Hx of ETOH abuse and MRSA onfection Chronic back pain Admit to tele floor IV hydration repalce K, will give 2 gram magnesium check mg levels IV vancomycin IV fluids LR 150 ml/hour blood culture utox thiamine, folic acid Alcohol level tylenol PRN for pain elevate legs DVt studies b/l LE DVt ppx discussed with resident staff
[2020-01-07] MEDS ORDERED: MAGNESIUM SULF 50% (8.12 MEQ/2 ML-1 GM VIAL) IVPB ONE (06:45)
[2020-01-07] MEDS: HEPARIN NA (PORCINE) 5,000 UNITS/ML 1ML VIAL SQ SCH ×3 (07:30→20:59)
[2020-01-07 07:55] LABS: CHOLESTEROL 143 mg/dL (50-200); HDL CHOLESTEROL 57 mg/dL (40-60); LDL CHOLESTEROL (ONLY SJRH) 67 mg/dL (5-100); MAGNESIUM 1.6 mg/dL (1.8-2.4); PHOSPHOROUS 3.7 mg/dL (2.5-4.9); TRIGLYCERIDES 115 mg/dL (0-150)
--- NOTE | 2020-01-07 08:41 | PN ---
Progress Note, Physician Chief Complaint: HISTORY OF PRESENT ILLNESS: Sunil craig is a 64 year old homeless male with a past medical history of ED admissions for alcohol abuse and back pain, mesothelioma, COVID 19 diagnosis, positive cultures for MRSA who presents to the ED with two days of increased bilateral worsening edema, erythema with pain upon palpation. THe patient reports that he had been out in the sun and had recent admissions for sunburn. Pt is lethargic and is poor historian, c/o pain suprapubic, no diarroea, and no constipation, no urinary symptoms, - Current Medication List Current Medications: Active Medications Heparin Sodium (Porcine) (Heparin -) 5,000 unit SQ TID [facility] Last Admin: 01/07/20 07:30 Dose: Not Given Documented by: Lorazepam (Ativan -) 1 mg PO 0500,1100,1700,2300 [facility] Stop: 01/08/20 23:01 Lorazepam (Ativan -) 1 mg PO Q4H PRN PRN Reason: Symptoms of Withdrawal Stop: 01/09/20 00:00 Lorazepam (Ativan) 2 mg PO 0500,1100,1700,2300 [facility] Stop: 01/07/20 23:01 Last Admin: 01/07/20 06:36 Dose: Not Given Documented by: Lorazepam (Ativan -) 0.5 mg PO Q6H [facility] Stop: 01/09/20 23:01 Lorazepam (Ativan -) 0.5 mg PO Q4H PRN PRN Reason: Symptoms of Withdrawal Stop: 01/10/20 00:00 Lorazepam (Ativan -) 0.5 mg PO ONCE ONE Stop: 01/10/20 05:01 - Objective Vital Signs: Vital Signs Temperature 97 F L 01/06/20 21:49 Pulse Rate 90 01/06/20 21:49 Respiratory Rate 18 01/06/20 21:49 Blood Pressure 118/70 01/06/20 21:49 O2 Sat by Pulse Oximetry (%) 93 L 01/06/20 21:49 Constitutional: Yes: Well Nourished, No Distress, Calm Eyes: Yes: Conjunctiva Clear, EOM Intact HENT: Yes: Atraumatic, Normocephalic Neck: Yes: Supple, Trachea Midline Cardiovascular: Yes: Regular Rate and Rhythm Respiratory: Yes: Regular, CTA Bilaterally Gastrointestinal: Yes: Normal Bowel Sounds, Soft, Other (no tenderness to deep palpation,) Musculoskeletal: Yes: Other Extremities: Yes: Other ( 2+ pulses, ERYTHEMATOUS BILATERALLY. PAIN UPON PALPATION DIFFUSELY. 2+ EDEMA BILATERALLY.) Edema: LLE: 2+, RLE: 2+ Labs: CBC, BMP 01/07/20 02:55 01/07/20 02:55 Impression/Plan Impression/Plan: 64M h/o etoh abuse cellulitis, MRSA, mesothelioma presents to the emergency department sp fall. Patient's legs are edematous and erythematous and warm to touch. Admitted for cellulitis. # BL cellulitis vs CVI vs DVT - CPK - CBC/CMP - doppler US LE negative for dvt, ID consult received one dose of vanco, and ancef, will continue ancef, - blood culture - urine culture # HYPOKALEMIA - K 2.7 received mag and K will recheck the level at 4, #ETOH withdrawal - ativan protocol (AST elevated) - THIAMINE - FOLATE - continue monitoring the level, # suprapubic pain, normal ua, and normal exam will monitor, likely muscular, #dvt prophylaxis, - heparin sq q8 Visit type - Emergency Visit Emergency Visit: No - New Patient This patient is new to me today: Yes Date on this admission: 01/07/20 - Critical Care Critical Care patient: No - Discharge Referral Referred to [facility] Med [facility] No
[2020-01-07 08:49] LABS: URINE APPEARANCE CLEAR; URINE BILIRUBIN NEGATIVE (NEGATIVE); URINE COLOR YELLOW; URINE GLUCOSE (UA) NEGATIVE (NEGATIVE); URINE KETONE NEGATIVE (NEGATIVE); URINE LEUK ESTERASE NEGATIVE (NEGATIVE); URINE NITRITE NEGATIVE (NEGATIVE); URINE PROTEIN NEGATIVE (NEGATIVE)
[2020-01-07 08:56] LABS: COCAINE, UR NEGATIVE ng/ml (CUTOFF=300); METHADONE, UR NEGATIVE ng/ml (CUTOFF=300); OPIATES, URI NEGATIVE ng/ml (CUTOFF=300); PHENCYCLIDINE,URINE NEGATIVE ng/ml (CUTOFF=25); URINE AMPHETAMINES NEGATIVE ng/ml (CUTOFF=500); URINE BARBITURATES NEGATIVE ng/ml (CUTOFF=200)
[2020-01-07 08:57] LABS: URINE BENZODIAZEPINES POSITIVE ng/ml (CUTOFF=200)
[2020-01-07] MEDS ORDERED: DEXTROSE 5%-WATER - 50 ML IVPB ONE ×2 (12:27→18:12)
[2020-01-07] MEDS ORDERED: ceFAZolin SODIUM 1 GM VIAL ONE ×2 (12:27→18:11)
[2020-01-07] MEDS ORDERED: PT OWN MED DRAWER 7, Y5N ONE (12:27)
[2020-01-07] MEDS: CEFAZOLIN 1 GM in DEXTROSE 5%-WATER - 50 ML IVPB SCH ×2 (12:56→18:43)
[2020-01-07 17:27] LABS: BASO % 0.5 % (0-2.0); EOS % 1.5 % (0-4.5); HEMATOCRIT 31.4 % (35.4-49); LYMPH % 14.7 % (8-40); MCH 26.7 pg (25.7-33.7); MCHC 31.7 g/dl (32.0-35.9); MEAN CELL VOLUME 84.3 fl (80-96); MEAN PLT VOLUME 7.4 fl (7.5-11.1); MONO % 6.2 % (3.8-10.2); NEUT % 77.1 % (42.8-82.8); PLATELET COUNT 187 K/MM3 (134-434); RBC 3.73 M/mm3 (4.00-5.60); RDW 19.8 % (11.9-15.9); WHITE BLOOD COUNT 5.8 K/mm3 (4.0-10.0)
[2020-01-07 18:08] LABS: ALBUMIN 2.5 g/dl (3.4-5.0); BILIRUBIN,TOTAL 0.7 mg/dL (0.2-1); BLOOD UREA NITROGEN 4.2 mg/dL (7-18); CALCIUM 7.4 mg/dL (8.5-10.1); CREATININE 0.6 mg/dL (0.55-1.3); TOT PROT 5.8 g/dl (6.4-8.2)
[2020-01-07 18:10] LABS: POTASSIUM 2.8 mmol/L (3.5-5.1)
[2020-01-07] MEDS ORDERED: POTASSIUM CHLORIDE TABS 20 MEQ TABLET.ER (FP) PO ONE (18:26)
[2020-01-07] MEDS: LORazepam 1 MG TABLET PO SCH ×2 (18:43→22:21)
[2020-01-07] MEDS: MAGNESIUM OXIDE 400 MG TABLET (FP) PO SCH (20:59)
[2020-01-08] MEDS: CEFAZOLIN 1 GM in DEXTROSE 5%-WATER - 50 ML IVPB SCH ×3 (02:23→17:55)
[2020-01-08] MEDS: LORazepam 1 MG TABLET PO SCH ×4 (05:32→22:21)
[2020-01-08] MEDS: HEPARIN NA (PORCINE) 5,000 UNITS/ML 1ML VIAL SQ SCH ×3 (05:32→22:21)
[2020-01-08] MEDS ORDERED: ceFAZolin SODIUM 1 GM VIAL ONE ×2 (09:05→17:53)
[2020-01-08] MEDS ORDERED: DEXTROSE 5%-WATER - 50 ML IVPB ONE ×2 (09:05→17:53)
[2020-01-08] MEDS: MAGNESIUM OXIDE 400 MG TABLET (FP) PO SCH ×2 (10:11→22:20)
--- NOTE | 2020-01-08 11:14 | PN ---
Progress Note, Physician History of Present Illness: Patient seen and examined at bedside. potassium 2.8 from yesterday and patient is refusing to take potassium supplementation both oral (liquid or tabs offered) and IV. Risks and benefits discussed with him. He said he has been homeless and on the streets for 6 years and always has low potassium and hes been fine. Hypertensive. Denies nausea vomiting fever chills chest pain or SOB. States his legs are red from sunburn. Afebrile. - Current Medication List Current Medications: Active Medications Amlodipine Besylate (Norvasc -) 10 mg PO DAILY [facility] Heparin Sodium (Porcine) (Heparin -) 5,000 unit SQ TID [facility] Last Admin: 01/08/20 05:32 Dose: Not Given Documented by: Cefazolin Sodium 1 gm/ (Dextrose) 50 mls @ 100 mls/hr IVPB Q8H-IV [facility] Last Admin: 01/08/20 10:11 Dose: 100 mls/hr Documented by: Labetalol HCl (Normodyne Injection -) 10 mg IVPUSH ONCE ONE Stop: 01/08/20 11:21 Lorazepam (Ativan -) 1 mg PO 0500,1100,1700,2300 [facility] Stop: 01/08/20 23:01 Last Admin: 01/08/20 10:13 Dose: 1 mg Documented by: Lorazepam (Ativan -) 1 mg PO Q4H PRN PRN Reason: Symptoms of Withdrawal Stop: 01/09/20 00:00 Lorazepam (Ativan -) 0.5 mg PO Q6H [facility] Stop: 01/09/20 23:01 Lorazepam (Ativan -) 0.5 mg PO Q4H PRN PRN Reason: Symptoms of Withdrawal Stop: 01/10/20 00:00 Lorazepam (Ativan -) 0.5 mg PO ONCE ONE Stop: 01/10/20 05:01 Magnesium Oxide (Mag-Ox -) 400 mg PO BID [facility] Stop: 01/09/20 21:59 Last Admin: 01/08/20 10:11 Dose: 400 mg Documented by: Potassium Chloride (Potassium Chloride Oral Liquid) 40 meq PO BID [facility] Stop: 01/08/20 22:01 - Objective Vital Signs: Vital Signs Temperature 99.8 F H 01/08/20 10:00 Pulse Rate 104 H 01/08/20 10:00 Respiratory Rate 22 H 01/08/20 10:00 Blood Pressure 180/110 H 01/08/20 10:00 O2 Sat by Pulse Oximetry (%) 93 L 01/08/20 10:00 Constitutional: Yes: No Distress, Calm, Obese Eyes: Yes: Other (conjunctival pallor present) HENT: Yes: Other (Moist mucous membranes). No: Thrush Neck: Yes: Supple Cardiovascular: Yes: Regular Rate and Rhythm. No: Murmur Respiratory: Yes: CTA Bilaterally Gastrointestinal: Yes: Normal Bowel Sounds, Soft, Abdomen, Obese. No: Distention, Tenderness Extremities: Yes: Erythema (not too warm. Likely sunburned bilaterally and not cellulitis as there is abrupt cut off bilaterally of erythema where socks are usually worn.) Edema: Yes Edema: LLE: 1+, RLE: 1+ Psychiatric: Yes: Alert, Oriented Labs: CBC, BMP 01/07/20 16:50 01/07/20 16:50 - ....Imaging Ultrasound: Report Reviewed (no DVT of bilateral lower extremities. Right Roberts's cyst.) Impression/Plan Impression/Plan: 64M h/o etoh abuse cellulitis, MRSA, mesothelioma presents to the emergency department s/p fall. Patient's legs are edematous and erythematous and warm to touch. Admitted for suspected cellulitis and acute alcohol withdrawals. patient is not febrile and does not have leukocytosis. Differential WNL. no tachycardia. no tachypnea. doubt patient has bilateral lower extremity cellulitis continue ancef for now get ID consult-will likely discoontinue ABx if ID is in agreement likely bilateral lower extremity sunburn as patient is homeless, is in the sun a lot, and wears shorts Doppler US LE negative for dvt, hypertensive urgency will give a dose of IV labetalol now and start daily norvasc. patient states he is always hypertensive when he is in withdrawals from ETOH. Hypokalemia K 2.8 from yesterday and patient is refusing repletions hypomagnesemia: Patient took magnesium PO supplmentation ETOH withdrawal continue CIWA protocol DVT PPx heparin Subcu TID Visit type - Emergency Visit Emergency Visit: Yes ED Registration Date: 01/07/20 Care time: The patient presented to the Emergency Department on the above date and was hospitalized for further evaluation of their emergent condition. - New Patient This patient is new to me today: Yes Date on this admission: 01/08/20 - Critical Care Critical Care patient: No
[2020-01-08] MEDS ORDERED: LABETALOL HCL 5 MG/1 ML (100MG/20 ML VIAL) IVPUSH ONE (11:20)
[2020-01-08] MEDS: amLODIPine BESYLATE 10 MG TABLET (FP) PO SCH (11:46)
[2020-01-08] MEDS: POTASSIUM CHLORIDE ORAL LIQUID 20 MEQ/15 ML PO SCH ×2 (11:49→22:21)
--- NOTE | 2020-01-08 11:49 | CON.ID ---
Consult Consult Specialty:: infectious disease Referred by:: hospitalist Reason for Consultation:: cellulitis - History of Present Illness Chief Complaint: leg pain History of Present Illness: 64 yo man admitted with bilateral leg erythema and pain no fevers poor historian +etoh- will not quantify +diarrhea- will not quantify - History Source History Provided By: Patient Limitations to Obtaining History: Uncooperative - Past Medical History Cardio/Vascular: Yes: HTN, Hyperlipdemia Pulmonary: Yes: Cancer (Mesothelioma), Other (asbestosis) Gastrointestinal: Yes: GERD Psych: Yes: Addictions (EtOH) Musculoskeletal: Yes: Chronic low back pain, Other (joint pain) - Past Surgical History Past Surgical History: Yes: None, Colonoscopy (pt may have had - not sure). 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 History of Recent Travel: No Home Medications - Allergies Allergies/Adverse Reactions: Allergies Allergy/AdvReac Type Severity Reaction Status Date / Time Fish Containing Products Allergy Mild Swelling Verified 01/06/20 21:51 No Known Drug Allergies Allergy Verified 01/06/20 21:51 - Home Medications Home Medications: Ambulatory Orders NK [No Known Home Medication] 12/23/19 Family Medical History Family History: Unable to Obtain Review of Systems Unable to obtain ROS, reason: uncooperative - Review of Systems Constitutional: denies: Chills, Fever Physical Exam Vital Signs: Vital Signs Temperature 99.8 F H 01/08/20 10:00 Pulse Rate 104 H 01/08/20 10:00 Respiratory Rate 22 H 01/08/20 10:00 Blood Pressure 180/110 H 01/08/20 10:00 O2 Sat by Pulse Oximetry (%) 93 L 01/08/20 10:00 Constitutional: Yes: No Distress, Calm Eyes: Yes: Conjunctiva Clear HENT: Yes: Atraumatic, Normocephalic Cardiovascular: Yes: Regular Rate and Rhythm Respiratory: Yes: Regular, CTA Bilaterally Gastrointestinal: Yes: Normal Bowel Sounds, Soft. No: Tenderness Extremities: Yes: Other (bilateral erythema and warmth of legs, arms are not red) Psychiatric: Yes: Alert Labs: CBC, BMP 01/07/20 16:50 01/07/20 16:50 Imaging - Results Ultrasound: Report Reviewed (no dvt (bilat)) Problem List - Problems (1) Cellulitis Code(s): L03.90 - CELLULITIS, UNSPECIFIED Qualifiers: Site of cellulitis: extremity Site of cellulitis of extremity: lower extremity Laterality: left Qualified Code(s): L03.116 - Cellulitis of left lower limb (2) Alcohol dependence with uncomplicated withdrawal Code(s): F10.230 - ALCOHOL DEPENDENCE WITH WITHDRAWAL, UNCOMPLICATED Assessment/Plan continue cefazolin for cellulitis etoh withdrawal per protocol replete potassium
[2020-01-08 16:45] LABS: BASO % 0.6 % (0-2.0); EOS % 0.9 % (0-4.5); HEMATOCRIT 32.1 % (35.4-49); HEMOGLOBIN 10.3 GM/dL (11.7-16.9); LYMPH % 15.1 % (8-40); MCH 26.6 pg (25.7-33.7); MCHC 32.1 g/dl (32.0-35.9); MEAN CELL VOLUME 82.8 fl (80-96); MEAN PLT VOLUME 7.9 fl (7.5-11.1); MONO % 7.4 % (3.8-10.2); PLATELET COUNT 205 K/MM3 (134-434); RBC 3.87 M/mm3 (4.00-5.60); RDW 20.4 % (11.9-15.9); WHITE BLOOD COUNT 8.6 K/mm3 (4.0-10.0)
[2020-01-08 17:13] LABS: ALBUMIN 2.5 g/dl (3.4-5.0); BILIRUBIN,TOTAL 1.7 mg/dL (0.2-1); BLOOD UREA NITROGEN 4.8 mg/dL (7-18); CALCIUM 7.6 mg/dL (8.5-10.1); CREATININE 0.6 mg/dL (0.55-1.3); MAGNESIUM 1.1 mg/dL (1.8-2.4); PHOSPHOROUS 2.9 mg/dL (2.5-4.9); TOT PROT 5.8 g/dl (6.4-8.2)
[2020-01-08 17:52] LABS: POTASSIUM 2.4 mmol/L (3.5-5.1)
[2020-01-08] MEDS: INSULIN SLIDING SCALE (NOVOLOG) 1 VIAL SQ SCH (17:54)
[2020-01-09] MEDS ORDERED: LORazepam 0.5 MG TABLET PO PRN
[2020-01-09] MEDS ORDERED: ceFAZolin SODIUM 1 GM VIAL ONE ×3 (01:18→17:29)
[2020-01-09] MEDS ORDERED: DEXTROSE 5%-WATER - 50 ML IVPB ONE ×3 (01:18→17:29)
[2020-01-09] MEDS: CEFAZOLIN 1 GM in DEXTROSE 5%-WATER - 50 ML IVPB SCH ×3 (01:30→17:51)
[2020-01-09] MEDS: LORazepam 0.5 MG TABLET PO SCH ×4 (05:15→22:25)
[2020-01-09] MEDS: INSULIN SLIDING SCALE (NOVOLOG) 1 VIAL SQ SCH ×3 (06:30→17:27)
[2020-01-09] MEDS: HEPARIN NA (PORCINE) 5,000 UNITS/ML 1ML VIAL SQ SCH ×3 (06:30→22:15)
[2020-01-09 07:47] LABS: BASO % 0.5 % (0-2.0); EOS % 2.3 % (0-4.5); HEMATOCRIT 31.3 % (35.4-49); HEMOGLOBIN 10.1 GM/dL (11.7-16.9); LYMPH % 14.9 % (8-40); MCH 26.8 pg (25.7-33.7); MCHC 32.1 g/dl (32.0-35.9); MEAN CELL VOLUME 83.7 fl (80-96); MEAN PLT VOLUME 7.7 fl (7.5-11.1); MONO % 6.4 % (3.8-10.2); NEUT % 75.9 % (42.8-82.8); PLATELET COUNT 186 K/MM3 (134-434); RBC 3.75 M/mm3 (4.00-5.60); WHITE BLOOD COUNT 7.9 K/mm3 (4.0-10.0)
[2020-01-09 08:14] LABS: ALBUMIN 2.6 g/dl (3.4-5.0); BILIRUBIN,TOTAL 1.4 mg/dL (0.2-1); BLOOD UREA NITROGEN 5.5 mg/dL (7-18); CALCIUM 7.6 mg/dL (8.5-10.1); CREATININE 0.7 mg/dL (0.55-1.3); MAGNESIUM 1.2 mg/dL (1.8-2.4); PHOSPHOROUS 2.5 mg/dL (2.5-4.9); TOT PROT 5.9 g/dl (6.4-8.2)
[2020-01-09 08:23] LABS: POTASSIUM 2.3 mmol/L (3.5-5.1)
[2020-01-09] MEDS ORDERED: POTASSIUM CHLORIDE ORAL LIQUID 20 MEQ/15 ML PO ONE (08:27)
[2020-01-09] MEDS: amLODIPine BESYLATE 10 MG TABLET (FP) PO SCH (10:51)
[2020-01-09] MEDS: MAGNESIUM OXIDE 400 MG TABLET (FP) PO SCH (10:51)
[2020-01-09] MEDS ORDERED: KCL 10 MEQ IVPB 10 MEQ/100 ML INFUS.BAG IVPB SCH (11:15)
--- NOTE | 2020-01-09 16:33 | PN ---
Physical Exam: SUBJECTIVE: Patient seen and examined at the bedside. he will not allow tele leads to monitor his heart and began to yell at me when i asked him to take oral potassium. his covid 19 test has not been done as he refuses to be swabbed. OBJECTIVE: will discontinue tele as he is refusing the monitor, transfer to [facility] will add potassium rich food and ensure to his diet since refusing supplements --- Patient is a 64 year old male with a significant past medical history of alcohol abuse. He was admitted on 01/07/2020 for alcohol abuse, bilateral lower leg cellulitis and hypokalemia. He is currently homeless. Vital Signs Period Temp Pulse Resp BP Sys/Jang Pulse Ox Last 24 Hr 97.7 F-98.6 F 89-110 20-21 136-157/60-113 93-97 GENERAL: The patient is awake, alert, and fully oriented, agitated at times HEAD: Normal with no signs of trauma. EYES: PERRL, extraocular movements intact, sclera anicteric, conjunctiva clear. No ptosis. ENT: Ears normal, nares patent, oropharynx clear without exudates, moist mucous membranes. NECK: Trachea midline, full range of motion, supple. LUNGS: Breath sounds equal, clear to auscultation bilaterally HEART: Regular rate and rhythm ABDOMEN: Soft, nontender, nondistended, normoactive bowel sounds, no guarding EXTREMITIES: bilateral lower ext erythema, negative for dvt NEUROLOGICAL: Normal speech, gait not observed. PSYCH: Normal mood, normal affect. Laboratory Results - last 24 hr 01/08/20 01/08/20 01/09/20 16:15 16:15 06:00 WBC 8.6 RBC 3.87 L Hgb 10.3 L Hct 32.1 L MCV 82.8 MCH 26.6 MCHC 32.1 RDW 20.4 H Plt Count 205 MPV 7.9 Absolute Neuts (auto) 6.6 Neutrophils % 76.0 Lymphocytes % 15.1 Monocytes % 7.4 Eosinophils % 0.9 Basophils % 0.6 Nucleated RBC % 0 Sodium 141 142 Potassium 2.4 L* 2.3 L* Chloride 97 L 98 Carbon Dioxide 34 H 34 H Anion Gap 9 10 BUN 4.8 L 5.5 L Creatinine 0.6 0.7 Est GFR (CKD-EPI)AfAm 123.15 115.59 Est GFR (CKD-EPI)NonAf 106.25 99.73 Random Glucose 95 87 Calcium 7.6 L 7.6 L Phosphorus 2.9 2.5 Magnesium 1.1 L 1.2 L Total Bilirubin 1.7 H 1.4 H AST 48 H 57 H ALT 24 25 Alkaline Phosphatase 138 H 129 H Total Protein 5.8 L 5.9 L Albumin 2.5 L 2.6 L 01/09/20 06:50 WBC 7.9 RBC 3.75 L Hgb 10.1 L Hct 31.3 L MCV 83.7 MCH 26.8 MCHC 32.1 RDW 20.0 H Plt Count 186 MPV 7.7 Absolute Neuts (auto) 6.0 Neutrophils % 75.9 Lymphocytes % 14.9 Monocytes % 6.4 Eosinophils % 2.3 D Basophils % 0.5 Nucleated RBC % 0 Sodium Potassium Chloride Carbon Dioxide Anion Gap BUN Creatinine Est GFR (CKD-EPI)AfAm Est GFR (CKD-EPI)NonAf Random Glucose Calcium Phosphorus Magnesium Total Bilirubin AST ALT Alkaline Phosphatase Total Protein Albumin Active Medications Generic Name Dose Route Start Last Admin Trade Name Freq PRN Reason Stop Dose Admin Amlodipine Besylate 10 mg 01/08/20 11:15 01/09/20 10:51 Norvasc - PO 10 mg DAILY CAREY Administration Heparin Sodium (Porcine) 5,000 unit 01/07/20 07:00 01/09/20 13:39 Heparin - SQ Not Given TID [facility] Cefazolin Sodium 1 gm/ 50 mls @ 100 mls/hr 01/07/20 11:30 01/09/20 10:51 Dextrose IVPB 100 mls/hr Q8H-IV C[facility] Administration Insulin Aspart 1 vial 01/08/20 16:30 01/09/20 12:26 Novolog Vial Sliding Scale - SQ Not Given TIDAC [facility] Protocol Lorazepam 0.5 mg 01/09/20 05:00 01/09/20 10:51 Ativan - PO 01/09/20 23:01 0.5 mg Q6H [facility] Administration Lorazepam 0.5 mg 01/09/20 00:00 Ativan - PO 01/10/20 00:00 Q4H PRN Symptoms of Withdrawal Lorazepam 0.5 mg 01/10/20 05:00 Ativan - PO 01/10/20 05:01 ONCE ONE Magnesium Oxide 400 mg 01/07/20 22:00 01/09/20 10:51 Mag-Ox - PO 01/09/20 21:59 400 mg BID [facility] Administration ASSESSMENT/PLAN: Problem List - Problems (1) Hypokalemia Assessment/Plan: K 2.3 and patient is refusing repletions Code(s): E87.6 - HYPOKALEMIA (2) Hypertensive urgency Assessment/Plan: resolving on amlodopine 10mg daily Code(s): I16.0 - HYPERTENSIVE URGENCY (3) Alcohol dependence with intoxication Assessment/Plan: on ativan taper continue CIWA protocol Code(s): F10.229 - ALCOHOL DEPENDENCE WITH INTOXICATION, UNSPECIFIED Qualifiers: Complication of substance-induced condition: uncomplicated Qualified Code(s): F10.220 - Alcohol dependence with intoxication, uncomplicated (4) Cellulitis Assessment/Plan: On cefazolin 1 gram per ID for blateral lower ext cellulitis Code(s): L03.90 - CELLULITIS, UNSPECIFIED Qualifiers: Site of cellulitis: extremity Site of cellulitis of extremity: lower extremity Laterality: left Qualified Code(s): L03.116 - Cellulitis of left lower limb (5) COVID-19 Assessment/Plan: serology ordered, but patient refusing swab. Code(s): U07.1 - COVID POSITIVE (6) DVT prophylaxis Assessment/Plan: heparin tid Code(s): Z29.9 - ENCOUNTER FOR PROPHYLACTIC MEASURES, UNSPECIFIED Visit type - Emergency Visit Emergency Visit: Yes ED Registration Date: 01/07/20 Care time: The patient presented to the Emergency Department on the above date and was hospitalized for further evaluation of their emergent condition. - New Patient This patient is new to me today: Yes Date on this admission: 01/09/20 - Critical Care Critical Care patient: No - Discharge Referral Referred to [facility] Med P.C.: No
[2020-01-10] MEDS ORDERED: ceFAZolin SODIUM 1 GM VIAL ONE ×3 (01:14→16:34)
[2020-01-10] MEDS ORDERED: DEXTROSE 5%-WATER - 50 ML IVPB ONE ×3 (01:14→16:34)
[2020-01-10] MEDS: CEFAZOLIN 1 GM in DEXTROSE 5%-WATER - 50 ML IVPB SCH ×3 (01:25→17:03)
[2020-01-10] MEDS ORDERED: LORazepam 0.5 MG TABLET PO ONE (05:00)
[2020-01-10] MEDS ORDERED: INSULIN (NOVOLOG) ASPART 100 UNITS/ML 10ML VIAL ONE (05:43)
[2020-01-10] MEDS: HEPARIN NA (PORCINE) 5,000 UNITS/ML 1ML VIAL SQ SCH ×3 (05:44→21:58)
[2020-01-10] MEDS: INSULIN SLIDING SCALE (NOVOLOG) 1 VIAL SQ SCH ×3 (06:10→16:40)
[2020-01-10] MEDS: amLODIPine BESYLATE 10 MG TABLET (FP) PO SCH (09:23)
--- NOTE | 2020-01-10 09:30 | PN ---
Progress Note, Physician Chief Complaint: Seen in room sitting on edge of bed. Agitated refusing physical exam. Refusing medical treatments. Will have psychiatry to determine capacity History of Present Illness: Patient is a 64 year old male with a significant past medical history of alcohol abuse. He was admitted on 01/07/2020 for alcohol abuse, bilateral lower leg cellulitis and hypokalemia. He is currently homeless. - Current Medication List Current Medications: Active Medications Amlodipine Besylate (Norvasc -) 10 mg PO DAILY [facility] Last Admin: 01/10/20 09:23 Dose: 10 mg Documented by: Heparin Sodium (Porcine) (Heparin -) 5,000 unit SQ TID [facility] Last Admin: 01/10/20 05:44 Dose: 5,000 unit Documented by: Cefazolin Sodium 1 gm/ (Dextrose) 50 mls @ 100 mls/hr IVPB Q8H-IV [facility] Last Admin: 01/10/20 09:23 Dose: 100 mls/hr Documented by: Insulin Aspart (Novolog Vial Sliding Scale -) 1 vial SQ TIDAC [facility]; Protocol Last Admin: 01/10/20 06:10 Dose: Not Given Documented by: - Objective Vital Signs: Vital Signs Temperature 98.6 F 01/10/20 08:37 Pulse Rate 86 01/10/20 08:37 Respiratory Rate 20 01/10/20 08:37 Blood Pressure 156/92 01/10/20 08:37 O2 Sat by Pulse Oximetry (%) 92 L 01/10/20 08:37 Constitutional: Yes: Anxious Psychiatric: Yes: Alert, Agitated Labs: CBC, BMP 01/09/20 06:50 01/09/20 06:00 Problem List - Problems (1) Prophylactic measure Assessment/Plan: FEN Fluids: adequate PO intake Electrolytes: monitor & replete as needed Nutrition: low chol/fat diet DVT moderate risk refusing sq heparin Dispo Maintain as inpatient full code discharge planning Code(s): Z29.9 - ENCOUNTER FOR PROPHYLACTIC MEASURES, UNSPECIFIED (2) Suspected COVID-19 virus infection Assessment/Plan: refsuing PCR swab maintain airborne/droplet precations Code(s): Z20.828 - CONTACT W AND EXPOSURE TO OTH VIRAL COMMUNICABLE DISEASES (3) Homelessness Assessment/Plan: well known to [place] and service Code(s): Z59.0 - HOMELESSNESS (4) Alcohol dependence with intoxication Assessment/Plan: refusing treatment Code(s): F10.229 - ALCOHOL DEPENDENCE WITH INTOXICATION, UNSPECIFIED Qualifiers: Complication of substance-induced condition: uncomplicated Qualified Code(s): F10.220 - Alcohol dependence with intoxication, uncomplicated (5) Cellulitis Assessment/Plan: ID follwoing c/w cefazolin Code(s): L03.90 - CELLULITIS, UNSPECIFIED Qualifiers: Site of cellulitis: extremity Site of cellulitis of extremity: lower extremity Laterality: left Qualified Code(s): L03.116 - Cellulitis of left lower limb (6) Hypertensive urgency Assessment/Plan: now normotenxsive Code(s): I16.0 - HYPERTENSIVE URGENCY (7) Hypokalemia Assessment/Plan: refsuin blood draws and potassium supplements Code(s): E87.6 - HYPOKALEMIA Visit type - Emergency Visit Emergency Visit: Yes ED Registration Date: 01/07/20 Care time: The patient presented to the Emergency Department on the above date and was hospitalized for further evaluation of their emergent condition. - New Patient This patient is new to me today: Yes Date on this admission: 01/10/20 - Critical Care Critical Care patient: No - Discharge Referral Referred to [facility] Med P.C.: No
[2020-01-10] MEDS ORDERED: ACETAMINOPHEN 325 MG TABLET (FP) PO PRN (16:06)
--- NOTE | 2020-01-10 16:15 | CON.PSY ---
Psychiatry Consult Chief Complaint: 64 Year old male with a long History of Alcohol dependence and abuse seen for Psych eval for Capacity. apparantly refusing all medical treatments. Symptoms: reports: Aggressivity, Impulsivity - Previous Psychiatric Treatment Outpatient: None Inpatient: None - Previous Substance Abuse Treatment Outpatient: More than 6 mos ago Inpatient: One prior admission - Reason for Previous Treatment Reason for Previous Treatment: Alcohol Abuse - Current Medications Current Medications: Active Medications Acetaminophen (Tylenol -) 650 mg PO Q6H PRN PRN Reason: PAIN LEVEL 4 - 6 Amlodipine Besylate (Norvasc -) 10 mg PO DAILY [facility] Last Admin: 01/10/20 09:23 Dose: 10 mg Documented by: Heparin Sodium (Porcine) (Heparin -) 5,000 unit SQ TID [facility] Last Admin: 01/10/20 13:00 Dose: Not Given Documented by: Cefazolin Sodium 1 gm/ (Dextrose) 50 mls @ 100 mls/hr IVPB Q8H-IV [facility] Last Admin: 01/10/20 09:23 Dose: 100 mls/hr Documented by: Insulin Aspart (Novolog Vial Sliding Scale -) 1 vial SQ TIDAC [facility]; Protocol Last Admin: 01/10/20 11:30 Dose: Not Given Documented by: - Allergies Allergies: Allergies Allergy/AdvReac Type Severity Reaction Status Date / Time Fish Containing Products Allergy Mild Swelling Verified 01/06/20 21:51 No Known Drug Allergies Allergy Verified 01/06/20 21:51 - Current Living Status Usual Living Arrangement: Alone - Current Mental Status Evaluation Appearance: Disheveled Attitude: Belligerent - Affect Affect: Full Range Appropriateness: Appropriate to Content - Mood Mood: Angry - Speech/Language Expressive: Coherent - Psychomotor Activity Psychomotor Activity: Hyperactive - Thought Process Thought Process: Intact - Thought Content Hallucinations: Absent Delusions: Absent - Self Perception Self Perception: No Impairment - Cognition Attention: Alert Orientation: Time Memory, Immediate Recall: Intact Memory, Short Term: 3/3 Memory, Remote with Promptin/3 - Concentration Serial Sevens Intact: No Simple Calculations Intact: Yes - Abstraction Proverb Interpretation: Intact Judgement: Intact - Insight Insight: Intact - Impulse Control Impulse Control: Minimally Impaired - Suicidal Ideation Suicidal Ideation: No - Homicidal Ideation Homicidal Ideation: No Assessment/Plan 1) Patient has the Mental Capacity to sign out AMA and make decisions at this time.
[2020-01-11] MEDS ORDERED: DEXTROSE 5%-WATER - 50 ML IVPB ONE ×2 (01:15→08:49)
[2020-01-11] MEDS ORDERED: ceFAZolin SODIUM 1 GM VIAL ONE ×2 (01:15→08:49)
[2020-01-11] MEDS: CEFAZOLIN 1 GM in DEXTROSE 5%-WATER - 50 ML IVPB SCH ×2 (01:43→09:24)
[2020-01-11] MEDS: HEPARIN NA (PORCINE) 5,000 UNITS/ML 1ML VIAL SQ SCH ×3 (05:31→21:52)
[2020-01-11] MEDS: INSULIN SLIDING SCALE (NOVOLOG) 1 VIAL SQ SCH ×3 (06:23→16:52)
--- NOTE | 2020-01-11 08:32 | PN ---
Progress Note, Physician History of Present Illness: Patient is a 64 year old male with a significant past medical history of alcohol abuse. He was admitted on 01/07/2020 for alcohol abuse, bilateral lower leg cellulitis and hypokalemia. He is currently homeless. - Current Medication List Current Medications: Active Medications Acetaminophen (Tylenol -) 650 mg PO Q6H PRN PRN Reason: PAIN LEVEL 4 - 6 Last Admin: 01/10/20 16:22 Dose: 650 mg Documented by: Amlodipine Besylate (Norvasc -) 10 mg PO DAILY [facility] Last Admin: 01/10/20 09:23 Dose: 10 mg Documented by: Heparin Sodium (Porcine) (Heparin -) 5,000 unit SQ TID [facility] Last Admin: 01/11/20 05:31 Dose: 5,000 unit Documented by: Cefazolin Sodium 1 gm/ (Dextrose) 50 mls @ 100 mls/hr IVPB Q8H-IV [facility] Last Admin: 01/11/20 01:43 Dose: 100 mls/hr Documented by: Insulin Aspart (Novolog Vial Sliding Scale -) 1 vial SQ TIDAC [facility]; Protocol Last Admin: 01/11/20 06:23 Dose: Not Given Documented by: - Objective Vital Signs: Vital Signs Temperature 98.3 F 01/11/20 05:53 Pulse Rate 99 H 01/11/20 05:53 Respiratory Rate 20 01/11/20 05:53 Blood Pressure 130/87 01/11/20 05:53 O2 Sat by Pulse Oximetry (%) 96 01/11/20 05:53 Labs: CBC, BMP 01/09/20 06:50 01/09/20 06:00 Problem List - Problems (1) Prophylactic measure Code(s): Z29.9 - ENCOUNTER FOR PROPHYLACTIC MEASURES, UNSPECIFIED (2) Suspected COVID-19 virus infection Code(s): Z20.828 - CONTACT W AND EXPOSURE TO OTH VIRAL COMMUNICABLE DISEASES (3) Homelessness Code(s): Z59.0 - HOMELESSNESS (4) Alcohol dependence with intoxication Code(s): F10.229 - ALCOHOL DEPENDENCE WITH INTOXICATION, UNSPECIFIED Qualifiers: Complication of substance-induced condition: uncomplicated Qualified Code(s): F10.220 - Alcohol dependence with intoxication, uncomplicated (5) Cellulitis Code(s): L03.90 - CELLULITIS, UNSPECIFIED Qualifiers: Site of cellulitis: extremity Site of cellulitis of extremity: lower extremity Laterality: left Qualified Code(s): L03.116 - Cellulitis of left lower limb (6) Hypertensive urgency Code(s): I16.0 - HYPERTENSIVE URGENCY (7) Hypokalemia Code(s): E87.6 - HYPOKALEMIA
[2020-01-11] MEDS: amLODIPine BESYLATE 10 MG TABLET (FP) PO SCH (09:24)
[2020-01-11] MEDS: CEPHALEXIN MONOHYDRATE 500 MG CAPSULE (UD) PO SCH ×3 (12:52→23:11)
--- NOTE | 2020-01-11 14:42 | DS ---
Physical Exam: SUBJECTIVE: Patient seen and examined Patient is a 64 year old male with a significant past medical history of alcohol abuse. He was admitted on 01/07/2020 for alcohol abuse, bilateral lower leg cellulitis and hypokalemia. He is currently homeless. Refusing to work with PT to assess for SNF placemnt. Refusing to take potassium supplements. Can be discharged on oral abx x 10 days OBJECTIVE: Vital Signs Period Temp Pulse Resp BP Sys/Jang Pulse Ox Last 24 Hr 98.3 F-99.6 F 88-99 18-20 128-150/70-100 90-96 PHYSICAL EXAM GENERAL: The patient is awake, alert, and fully oriented, in no acute distress. HEAD: Normal with no signs of trauma. EYES: PERRL, extraocular movements intact, sclera anicteric, conjunctiva clear. ENT: Ears normal, nares patent, oropharynx clear without exudates, moist mucous membranes. NECK: Trachea midline, full range of motion, supple. LUNGS: Breath sounds equal, clear to auscultation bilaterally, no wheezes, no crackles, no accessory muscle use. HEART: Regular rate and rhythm, S1, S2 without murmur, rub or gallop. ABDOMEN: Soft, nontender, nondistended, normoactive bowel sounds, no guarding, no rebound, no hepatosplenomegaly, no masses. EXTREMITIES: 2+ pulses, warm, well-perfused, no edema. NEUROLOGICAL: Cranial nerves II through XII grossly intact. Normal speech, gait not observed. PSYCH: Normal mood, normal affect. SKIN: Warm, dry, normal turgor, no rashes. Cellulitic changes to both feet R>L LABS HOSPITAL COURSE: Date of Admission:01/07/20 Date of Discharge: 01/11/20 Problem List - Problems (1) Prophylactic measure Assessment/Plan: FEN Fluids: adequate PO intake Electrolytes: refusing oral postasium Nutrition: low chol/fat diet DVT moderate risk refusing sq heparin Dispo Maintain as inpatient full code discharge planning to homeless custodial. Refusing to work with PT to assess for SNF placement Code(s): Z29.9 - ENCOUNTER FOR PROPHYLACTIC MEASURES, UNSPECIFIED (2) Suspected COVID-19 virus infection Assessment/Plan: pending pcr maintain airborne/droplet precations Code(s): Z20.828 - CONTACT W AND EXPOSURE TO OTH VIRAL COMMUNICABLE DISEASES (3) Homelessness Assessment/Plan: well known to [facility] and service Code(s): Z59.0 - HOMELESSNESS (4) Alcohol dependence with intoxication Assessment/Plan: refusing treatment Code(s): F10.229 - ALCOHOL DEPENDENCE WITH INTOXICATION, UNSPECIFIED Qualifiers: Complication of substance-induced condition: uncomplicated Qualified Code(s): F10.220 - Alcohol dependence with intoxication, uncomplicated (5) Cellulitis Assessment/Plan: improved with IV Zosyn c/w kelflex x 10 days Code(s): L03.90 - CELLULITIS, UNSPECIFIED Qualifiers: Site of cellulitis: extremity Site of cellulitis of extremity: lower extremity Laterality: left Qualified Code(s): L03.116 - Cellulitis of left lower limb (6) Hypertensive urgency Assessment/Plan: now normotenxsive Code(s): I16.0 - HYPERTENSIVE URGENCY (7) Hypokalemia Assessment/Plan: refsuin blood draws and potassium supplements Code(s): E87.6 - HYPOKALEMIA Stable fro discharge Minutes to complete discharge: 35 Discharge Summary Problems reviewed: Yes Reason For Visit: ALCOHOL ABUSE,CELLULITIS,HYPOKALEMIA Current Active Problems Alcohol dependence with intoxication (Acute) Cellulitis (Acute) DVT prophylaxis (Acute) Homelessness (Acute) Hypertensive urgency (Acute) Hypokalemia (Acute) Hypokalemia (Acute) Prophylactic measure (Acute) Suspected COVID-19 virus infection (Acute) - Instructions Diet, Activity, Other Instructions: DISCHARGE YOUR VISIT You came to the hospital because had in infection of the skin in your feet. You were given antibiotics and it improved. Continue to take the antibiotics for 10 days. The test for the coronavirus was sent and is not resulted. Continue to isolate your self for 14 days. MEDICATIONS Please continue to take your home medications as prescribed. There was no changes DIET Continue your home diet ADDITIONAL INFORMATION Please call 911 or come directly to the emergency department if you experience unusual headache, vision change, shortness of breath, chest pain, numbness, tingling, loss of alertness/awareness, loss of function, unusual bleeding or any alarming symptoms. Thank you for allowing me to care for you. Marcos Milner, ACNP, [facility] [phone] Disposition: HOME - Home Medications Comprehensive Discharge Medication List: Ambulatory Orders Acetaminophen [Tylenol .Regular Strength -] 650 mg PO Q6H PRN tablet 01/11/20 Amlodipine Besylate [Norvasc -] 10 mg PO DAILY tablet 01/11/20 Cephalexin Monohydrate [Keflex -] 500 mg PO Q6HPO #40 capsule 01/11/20 Insulin Sliding Scale [Novolog Vial Sliding Scale -] 1 vial SQ TIDAC units 01/11/20 Magnesium Oxide [Mag-Ox -] 400 mg PO BID tablet 01/11/20 Problem List - Problems (1) Prophylactic measure Code(s): Z29.9 - ENCOUNTER FOR PROPHYLACTIC MEASURES, UNSPECIFIED (2) Suspected COVID-19 virus infection Code(s): Z20.828 - CONTACT W AND EXPOSURE TO OTH VIRAL COMMUNICABLE DISEASES (3) Homelessness Code(s): Z59.0 - HOMELESSNESS (4) Alcohol dependence with intoxication Code(s): F10.229 - ALCOHOL DEPENDENCE WITH INTOXICATION, UNSPECIFIED Qualifiers: Complication of substance-induced condition: uncomplicated Qualified Code(s): F10.220 - Alcohol dependence with intoxication, uncomplicated (5) Cellulitis Code(s): L03.90 - CELLULITIS, UNSPECIFIED Qualifiers: Site of cellulitis: extremity Site of cellulitis of extremity: lower extremity Laterality: left Qualified Code(s): L03.116 - Cellulitis of left lower limb (6) Hypertensive urgency Code(s): I16.0 - HYPERTENSIVE URGENCY (7) Hypokalemia Code(s): E87.6 - HYPOKALEMIA This patient is new to me today: No Emergency Visit: Yes ED Registration Date: 01/07/20 Care time: The patient presented to the Emergency Department on the above date and was hospitalized for further evaluation of their emergent condition. Critical Care patient: No - Discharge Referral Referred to [facility] Med P.C.: No
[2020-01-12] MEDS: CEPHALEXIN MONOHYDRATE 500 MG CAPSULE (UD) PO SCH (05:16)
[2020-01-12] MEDS: HEPARIN NA (PORCINE) 5,000 UNITS/ML 1ML VIAL SQ SCH ×2 (05:16→05:48)
[2020-01-12] MEDS: INSULIN SLIDING SCALE (NOVOLOG) 1 VIAL SQ SCH (06:03)
[2020-01-12 08:02] VITALS: BP 128/82; PULSE 90; TEMP 99.1
== END 2020-01-12 09:25 | disposition home or self-care (01) | DRG 383 ==
LOC: JER 21:46 → JERBED 01-07 05:48 → J4W 01-07 10:00 → J7W 01-09 22:57
PROVIDERS: ADMIT Internal Medicine; ATTEND Nurse Practitioner Acute Care
DX: L03.115 Cellulitis of right lower limb (principal); L03.116 Cellulitis of left lower limb; F10.229 Alcohol dependence with intoxication, unspecified; R45.1 Restlessness and agitation; I16.0 Hypertensive urgency; E87.6 Hypokalemia; Z59.0 Homelessness; K21.9 Gastro-esophageal reflux disease without esophagitis; E66.9 Obesity, unspecified; Z68.37 Body mass index [BMI] 37.0-37.9, adult; E83.42 Hypomagnesemia; M54.9 Dorsalgia, unspecified
CPT/HCPCS: 36415; 80053; 80061; 80307; 81003; 82550; 83721; 83735; 83880; 84100; 84484; 85025; 87040; 87086; 87389; 93970-TC; 99285-25; J1644; U0003

== ENCOUNTER 2020-01-12 19:15 | Emergency (ER) | payer OTHER ==
--- NOTE | 2020-01-12 19:29 | PDOC ---
Rapid Medical Evaluation Time Seen by Provider: 01/12/20 19:28 Medical Evaluation: Allergies Allergy/AdvReac Type Severity Reaction Status Date / Time Fish Containing Products Allergy Mild Swelling Verified 01/06/20 21:51 No Known Drug Allergies Allergy Verified 01/06/20 21:51 01/12/20 19:29 BIBA for ETOH intoxication Pt to precede to ED for further management and care
[2020-01-12 20:14] VITALS: BMI 36.0
--- NOTE | 2020-01-12 23:54 | PDOC ---
Attending Attestation - Resident Resident Name: Emmett Villela - ED Attending Attestation I have performed the following: I have examined & evaluated the patient, The case was reviewed & discussed with the resident, I agree w/resident's findings & plan, Exceptions are as noted - HPI HPI: 01/13/20 06:37 See resident HPI - Physicial Exam PE: 01/13/20 06:37 Agree with documented exam - Medical Decision Making 01/13/20 06:37 Intox, complaining of chronic back pain, chronic LE skin changes observe discharge when clinically sober AOx3, ambulating with slow, steady gait, normal base, speaking in full sentences Discharge - Discharge Information Problems reviewed: Yes Clinical Impression/Diagnosis: Intoxication Condition: Stable Disposition: HOME - Follow up/Referral - Patient Discharge Instructions - Post Discharge Activity
[2020-01-13 00:56] VITALS: TEMP 98.6
--- NOTE | 2020-01-13 04:53 | PDOC ---
History of Present Illness - General Chief Complaint: Alcohol intoxication Stated Complaint: BACK PAIN Time Seen by Provider: 01/12/20 19:28 - History of Present Illness Initial Comments: 01/13/20 04:51 64 yo male pmh EtOH abuse, alcohol abuse, mesothelioma, chronic back pain, previously diagnosed COVID 19 presenting with chronic back pain. Denies chest pain, cough, SOB, fever. He wanted to come to the ED for a bed. He wanted to lay down. He denies N/V/D. 01/13/20 04:55 - Review of Systems Constitutional: No: Chills, Fever HEENTM: No: Eye Pain, Nose Congestion Respiratory: No: Cough, Shortness of Breath Cardiac (ROS): No: Chest Pain, Palpitations ABD/GI: No: Abdominal Distended, Nausea, Vomiting : No: Burning, Pain Musculoskeletal: + Back Pain, Joint Pain Integumentary: No: Bruising, Flushing Neurological: No: Headache, Seizure Psychiatric: No: Anxiety, Depression Endocrine: No: Intolerance to Cold, Intolerance to Heat GENERAL: Awake, alert, and fully oriented, in no acute distress. HEAD: Normal with no signs of trauma. EYES: Pupils equal, round and reactive to light, extraocular movements intact, sclera anicteric, conjunctiva clear. No lid lag. EARS, NOSE, THROAT: Ears normal, nares patent, oropharynx clear without exudates. Moist mucous membranes. NECK: Normal range of motion, supple without lymphadenopathy, JVD, or masses. LUNGS: Breath sounds equal, clear to auscultation bilaterally. No wheezes, and no crackles. No accessory muscle use. HEART: Regular rate and rhythm, normal S1 and S2 without murmur, rub or gallop. ABDOMEN: Soft, nontender, not distended, normoactive bowel sounds, no guarding, no rebound, no masses. No hepatomegaly or splenomegaly. MUSCULOSKELETAL: Normal range of motion at all joints. No bony deformities or tenderness. No CVA tenderness. UPPER EXTREMITIES: 2+ pulses, warm, well-perfused. No cyanosis. No clubbing. No peripheral edema. LOWER EXTREMITIES: 2+ pulses, ERYTHEMATOUS BILATERALLY. NO PAIN UPON PALPATION DIFFUSELY. Past History - Medical History Allergies/Adverse Reactions: Allergies Allergy/AdvReac Type Severity Reaction Status Date / Time Fish Containing Products Allergy Mild Swelling Verified 01/06/20 21:51 No Known Drug Allergies Allergy Verified 01/06/20 21:51 Home Medications: Ambulatory Orders Acetaminophen [Tylenol .Regular Strength -] 650 mg PO Q6H PRN tablet 01/11/20 Amlodipine Besylate [Norvasc -] 10 mg PO DAILY tablet 01/11/20 Cephalexin Monohydrate [Keflex -] 500 mg PO Q6HPO #40 capsule 01/11/20 Insulin Sliding Scale [Novolog Vial Sliding Scale -] 1 vial SQ TIDAC units 01/11/20 Magnesium Oxide [Mag-Ox -] 400 mg PO BID tablet 01/11/20 Anemia: No Asthma: No Cancer: Yes (mesothelioma lung cancer) Cardiac Disorders: No CVA: No COPD: No CHF: No DVT: No Dementia: No Diabetes: No Dialysis: No GI Disorders: No Disorders: No HTN: Yes (non compliant with meds.) Hypercholesterolemia: Yes Kidney Stones: No Liver Disease: Yes (ETOH abuse) Psychiatric Problems: Yes (ETOH abuse) Seizures: No Thyroid Disease: No Lung CA: Yes (Mesothelioma) - Surgical History Abdominal Surgery: No Appendectomy: No Cardiac Surgery: No Cholecystectomy: No Lung Surgery: No Neurologic Surgery: No Orthopedic Surgery: No - Reproductive History Testicular Surgery: No - Immunization History Td Vaccination: Yes TDAP Vaccination: Yes Immunization Up to Date: Yes - Psycho-Social/Smoking History Smoking Status: No Smoking History: Never smoked Have you smoked in the past 12 months: No Number of Cigarettes Smoked Daily: 0 If you are a former smoker, when did you quit?: 0 Cigars Per Day: 0 'Breaking Loose' booklet given: 09/22/17 - Substance Abuse Hx (Audit-C & DAST Scrn) How often the patient has a drink containing alcohol: 4 0r more times/wk Number of drinks the patient has on a typical day: 10 or more How often the patient has six or more drinks on one occasion: Daily or almost daily Score: In Men: 4 or > Positive; In Women: 3 or > Positive: 12 Screen Result (Pos requires Nsg. Audit-10AR): Positive In the last yr the pt used illegal drug/Rx for NonMed reason: No Score: Yes response is considered Positive: 0 Screen Result (Positive result requires Nsg. DAST-10): Negative *Physical Exam - Vital Signs Last Vital Signs Temp Pulse Resp BP Pulse Ox 98.6 F 102 H 19 119/73 96 01/13/20 00:55 01/13/20 00:55 01/13/20 00:55 01/13/20 00:55 01/13/20 00:55 Medical Decision Making - Medical Decision Making 01/13/20 05:25 His cellulitist in his lower extremities are not looking worse. He has no complaint about leg pain. Will observe him. 01/13/20 05:26 Discharge - Discharge Information Problems reviewed: Yes Clinical Impression/Diagnosis: Intoxication, Back pain Condition: Stable Disposition: HOME - Follow up/Referral - Patient Discharge Instructions - Post Discharge Activity
[2020-01-13 06:30] VITALS: BP 127/66; PULSE 100
== END 2020-01-13 06:30 | disposition home or self-care (01) ==
LOC: JER 19:15
DX: F10.129 Alcohol abuse with intoxication, unspecified (principal)
CPT/HCPCS: 99284-25

== ENCOUNTER 2020-01-19 18:02 | Emergency (ER) | payer OTHER ==
[2020-01-19 19:04] VITALS: BMI 33.0
--- NOTE | 2020-01-19 19:31 | PDOC ---
History of Present Illness - General Chief Complaint: Alcohol intoxication Stated Complaint: INTOXICATED Time Seen by Provider: 01/19/20 19:21 Past History - Medical History Allergies/Adverse Reactions: Allergies Allergy/AdvReac Type Severity Reaction Status Date / Time Fish Containing Products Allergy Mild Swelling Verified 01/20/20 23:24 No Known Drug Allergies Allergy Verified 01/20/20 23:24 Home Medications: Ambulatory Orders Acetaminophen [Tylenol .Regular Strength -] 650 mg PO Q6H PRN tablet 01/11/20 Amlodipine Besylate [Norvasc -] 10 mg PO DAILY tablet 01/11/20 Cephalexin Monohydrate [Keflex -] 500 mg PO Q6HPO #40 capsule 01/11/20 Insulin Sliding Scale [Novolog Vial Sliding Scale -] 1 vial SQ TIDAC units 01/11/20 Magnesium Oxide [Mag-Ox -] 400 mg PO BID tablet 01/11/20 Anemia: No Asthma: No Cancer: Yes (mesothelioma lung cancer) Cardiac Disorders: No CVA: No COPD: No CHF: No DVT: No Dementia: No Diabetes: No Dialysis: No GI Disorders: No Disorders: No HTN: Yes (non compliant with meds.) Hypercholesterolemia: Yes Kidney Stones: No Liver Disease: Yes (ETOH abuse) Psychiatric Problems: Yes (ETOH abuse) Seizures: No Thyroid Disease: No Lung CA: Yes (Mesothelioma) - Surgical History Abdominal Surgery: No Appendectomy: No Cardiac Surgery: No Cholecystectomy: No Lung Surgery: No Neurologic Surgery: No Orthopedic Surgery: No - Reproductive History Testicular Surgery: No - Immunization History Td Vaccination: Yes TDAP Vaccination: Yes Immunization Up to Date: Yes - Psycho-Social/Smoking History Smoking Status: No Smoking History: Never smoked Have you smoked in the past 12 months: No Number of Cigarettes Smoked Daily: 0 If you are a former smoker, when did you quit?: 0 Cigars Per Day: 0 Information on smoking cessation initiated: No 'Breaking Loose' booklet given: 09/22/17 - Substance Abuse Hx (Audit-C & DAST Scrn) How often the patient has a drink containing alcohol: 4 0r more times/wk Number of drinks the patient has on a typical day: 10 or more How often the patient has six or more drinks on one occasion: Daily or almost daily Score: In Men: 4 or > Positive; In Women: 3 or > Positive: 12 Screen Result (Pos requires Nsg. Audit-10AR): Positive In the last yr the pt used illegal drug/Rx for NonMed reason: No Score: Yes response is considered Positive: 0 Screen Result (Positive result requires Nsg. DAST-10): Negative *Physical Exam - Vital Signs Last Vital Signs Temp Pulse Resp BP Pulse Ox 98.9 F 78 17 98/60 97 01/19/20 19:03 01/19/20 19:03 01/19/20 19:03 01/19/20 19:03 01/19/20 19:03 Medical Decision Making - Medical Decision Making 01/19/20 19:35 HPI: 65yo M hx EtOH abuse, HTN, mesothelioma, chronic back pain, and previously diagnosed COVID 19 c/o chronic back pain and R hip soreness, unchanged recently, constant, unchanging, nothing makes better or worse. Denies saddle anesthesia, incontinence or retention, falls, trauma, F/C, N/V, focal weakness, numbness, incontinence, CP, SOB. Endorses daily alcohol abuse 1 pint per day. Pt is requesting food. Pt denies detox. ROS: Constitutional: Negative for chills, fever, fatigue, diaphoresis. HENT: Negative for sore throat, rhinorrhea, congestion. Eyes: Negative for visual disturbance. Respiratory: Negative for shortness of breath, cough, and wheezing. Cardiovascular: Negative for chest pain, palpitations, and leg swelling. Gastrointestinal: Negative for abdominal pain, blood in stool, constipation, diarrhea, nausea, and vomiting. Genitourinary: Negative for dysuria, flank pain, and hematuria. Musculoskeletal: Positive for back pain and R hip soreness. Negative for myalgias and neck pain. Skin: Negative for rash. Neurological: Negative for light-headedness, dizziness, vertigo, syncope, weakness, numbness and headaches. Psychiatric/Behavioral: Positive for alcohol abuse. Negative for behavioral problems and confusion. PE: Gen: Alert, NAD, comfortable-appearing, disheveled HEENT: PERRL, EOMI, dry MM, NCAT. CV: Regular rate and rhythm. No murmurs, rubs, or gallops. PULM: No resp distress. CTAB, no wheezes, rales, or rhonchi. ABD: protuberant soft, NT/ND, no rebound tenderness or guarding, no CVA tenderness. BACK: No TTP of c/t/l-spine. No step-offs or deformities. MSK: Pelvis stable, intact, no TTP hips. No bony deformities. 2+ pulses in all extremities. NEURO: AAOx3. PERRL. No gross CN deficits. Strength and sensation grossly intact throughout. Normal gait. EXTREMITIES: No cyanosis. No clubbing. No edema. No calf tenderness. PSYCH: Normal mood and thought pattern. SKIN: Warm and dry. Normal capillary refill. No rashes. No jaundice. MDM: 65yo M hx EtOH abuse, HTN, mesothelioma, chronic back pain, and previously diagnosed COVID 19 with chronic back pain and atraumatic R hip soreness. Hemodynamically stable, afebrile, benign PE. Back pain c/w chronic pain. No trauma or s/s concerning for spinal abscess, cauda equina, cord compression, fracture,or dislocation. No neurologic deficits. Ambulates without difficulty. -Food -Pain management: tylenol -Dispo: observe and reassess 01/19/20 20:44 Pt tolerated PO. Pt now sleeping. 01/20/20 05:52 Stable gait Safe for d/c Discharge - Discharge Information Problems reviewed: Yes Clinical Impression/Diagnosis: Alcohol intoxication Lower back pain Qualifiers: Chronicity: unspecified Condition: Improved Disposition: HOME - Admission No - Follow up/Referral - Patient Discharge Instructions Patient Printed Discharge Instructions: DI for Alcohol Abuse Additional Instructions: Follow up with your primary care doctor within 1 week. Return to the Emergency Department with any new or worsening symptoms including inability to walk or talk, passing out, chest pain, or difficulty breathing. - Post Discharge Activity
[2020-01-19] MEDS ORDERED: ACETAMINOPHEN 500 MG TABLET (FP) PO ONE (19:33)
--- NOTE | 2020-01-19 19:55 | PDOC ---
Documentation entered by Joelle Juárez SCRIBE, acting as scribe for Skye Rashid DO. Skye Rashid, : This documentation has been prepared by the Marquita pereira Brenda, SCRIBE, under my direction and personally reviewed by me in its entirety. I confirm that the documentation accurately reflects all work, treatment, procedures, and medical decision making performed by me. Attending Attestation - Resident Resident Name: MartinsussyFabiana - ED Attending Attestation I have performed the following: I have examined & evaluated the patient, The case was reviewed & discussed with the resident, I agree w/resident's findings & plan, Exceptions are as noted - HPI HPI: 01/20/20 00:19 65yo male with right low back pain. States he wants something to eat and a place to sleep. hx of chronic alcohol abuse. No red flags or midline back pain. Able to fully range the hip, hx of back pain. - Physicial Exam PE: 01/20/20 00:20 Gen: awake, alert, nad heart: +s1s2 reg lungs: cta b/l abd: soft, obese, nt ext: no c/c/e, pelvis stable, from of the hips back: no midline ttp, no stepoffs or deformities - Medical Decision Making 01/19/20 19:52 a/p: 65yo male with chronic etoh abuse biba for eval of R back and hip pain -pt states he wants food and is able to sit up in the stretcher -hip stable -pt denies cp/sob -pt is homeless and drinks a pint of vodka daily -will ambulate the patient -no ttp -no flank ttp -will give a meal and ambulate the pt 01/20/20 00:21 pt resting comfortably sleeping dc when awake and pt ambulates Discharge - Discharge Information Problems reviewed: Yes Clinical Impression/Diagnosis: Lower back pain Condition: Stable Disposition: HOME - Admission No - Follow up/Referral - Patient Discharge Instructions - Post Discharge Activity
[2020-01-19] MEDS ORDERED: ACETAMINOPHEN 325 MG TABLET (FP) ONE (20:03)
[2020-01-20 00:49] VITALS: BP 116/79; PULSE 94; TEMP 98.3
== END 2020-01-20 05:56 | disposition home or self-care (01) ==
LOC: JER 18:02
DX: M54.5 Low back pain (principal); F10.129 Alcohol abuse with intoxication, unspecified
CPT/HCPCS: 99283-25

== ENCOUNTER 2020-01-20 23:18 | Emergency (ER) | payer OTHER ==
[2020-01-20 23:28] VITALS: BP 120/60; TEMP 98; BMI 33.0
[2020-01-21] MEDS ORDERED: LIDOCAINE 5% TOPICAL PATCH TP ONE (03:54)
--- NOTE | 2020-01-21 03:54 | PDOC ---
History of Present Illness - General Chief Complaint: Pain Stated Complaint: KNEE PAIN Time Seen by Provider: 01/21/20 03:35 Past History - Medical History Allergies/Adverse Reactions: Allergies Allergy/AdvReac Type Severity Reaction Status Date / Time Fish Containing Products Allergy Mild Swelling Verified 01/20/20 23:24 No Known Drug Allergies Allergy Verified 01/20/20 23:24 Home Medications: Ambulatory Orders Acetaminophen [Tylenol .Regular Strength -] 650 mg PO Q6H PRN tablet 01/11/20 Amlodipine Besylate [Norvasc -] 10 mg PO DAILY tablet 01/11/20 Cephalexin Monohydrate [Keflex -] 500 mg PO Q6HPO #40 capsule 01/11/20 Insulin Sliding Scale [Novolog Vial Sliding Scale -] 1 vial SQ TIDAC units 01/11/20 Magnesium Oxide [Mag-Ox -] 400 mg PO BID tablet 01/11/20 Anemia: No Asthma: No Cancer: Yes (mesothelioma lung cancer) Cardiac Disorders: No CVA: No COPD: No CHF: No DVT: No Dementia: No Diabetes: No Dialysis: No GI Disorders: No Disorders: No HTN: Yes (non compliant with meds.) Hypercholesterolemia: Yes Kidney Stones: No Liver Disease: Yes (ETOH abuse) Psychiatric Problems: Yes (ETOH abuse) Seizures: No Thyroid Disease: No Lung CA: Yes (Mesothelioma) - Surgical History Abdominal Surgery: No Appendectomy: No Cardiac Surgery: No Cholecystectomy: No Lung Surgery: No Neurologic Surgery: No Orthopedic Surgery: No - Reproductive History Testicular Surgery: No - Immunization History Td Vaccination: Yes TDAP Vaccination: Yes Immunization Up to Date: Yes - Psycho-Social/Smoking History Smoking Status: No Smoking History: Never smoked Have you smoked in the past 12 months: No Number of Cigarettes Smoked Daily: 0 If you are a former smoker, when did you quit?: 0 Cigars Per Day: 0 'Breaking Loose' booklet given: 09/22/17 - Substance Abuse Hx (Audit-C & DAST Scrn) How often the patient has a drink containing alcohol: 4 0r more times/wk Score: In Men: 4 or > Positive; In Women: 3 or > Positive: 4 Screen Result (Pos requires Nsg. Audit-10AR): Positive In the last yr the pt used illegal drug/Rx for NonMed reason: No Score: Yes response is considered Positive: 0 Screen Result (Positive result requires Nsg. DAST-10): Negative *Physical Exam - Vital Signs Last Vital Signs Temp Pulse Resp BP Pulse Ox 98 F 93 H 18 120/60 01/20/20 23:20 01/20/20 23:20 01/20/20 23:20 01/20/20 23:20 Medical Decision Making - Medical Decision Making 01/21/20 03:53 HPI: 65yo M hx EtOH abuse, HTN, mesothelioma, chronic back pain, and previously diagnosed COVID 19 c/o chronic back pain , unchanged recently, constant, unchanging, nothing makes better or worse. Denies saddle anesthesia, incontinence or retention, falls, trauma, F/C, N/V, focal weakness, numbness, incontinence, CP, SOB. Endorses daily alcohol abuse 1 pint per day. Pt is requesting food. Pt denies detox. ROS: Constitutional: Negative for chills, fever, fatigue, diaphoresis. HENT: Negative for sore throat, rhinorrhea, congestion. Eyes: Negative for visual disturbance. Respiratory: Negative for shortness of breath, cough, and wheezing. Cardiovascular: Negative for chest pain, palpitations, and leg swelling. Gastrointestinal: Negative for abdominal pain, blood in stool, constipation, diarrhea, nausea, and vomiting. Genitourinary: Negative for dysuria, flank pain, and hematuria. Musculoskeletal: Positive for back pain. Negative for myalgias and neck pain. Skin: Negative for rash. Neurological: Negative for light-headedness, dizziness, vertigo, syncope, weakness, numbness and headaches. Psychiatric/Behavioral: Positive for alcohol abuse. Negative for behavioral problems and confusion. PE: Gen: Alert, NAD, comfortable-appearing, disheveled HEENT: PERRL, EOMI, dry MM, NCAT CV: Regular rate and rhythm. No murmurs, rubs, or gallops. PULM: No resp distress. CTAB, no wheezes, rales, or rhonchi. ABD: protuberant, soft, NT/ND, no rebound tenderness or guarding, no CVA tenderness. BACK: No TTP of c/t/l-spine. No step-offs or deformities. MSK: No bony deformities. 2+ pulses in all extremities. NEURO: AAO to name, place, and situation. PERRL. Slurred speech but no other gross CN deficits. Strength and sensation grossly intact throughout. EXTREMITIES: No cyanosis. No clubbing. PSYCH: Normal mood and thought pattern. SKIN: Warm and dry. Normal capillary refill. No rashes. No jaundice. MDM: 65yo M hx EtOH abuse, HTN, mesothelioma, chronic back pain, and previously diagnosed COVID [address] for alcohol intoxication complaining of chronic back pain, unchanged recently, requesting lidoderm patch. Hemodynamically stable, afebrile, slurred speech likely due to intoxication, otherwise neurologically intact, otherwise benign exam. Back pain consistent with chronic pain. No red flags or changes concerning for fracture, cord compression, cauda equina, spinal abscess, or other emergent pathology at this time. Intoxicated, but no other concerning neurologic deficits. -lidoderm patch -food -observe and reassess s/p clinical sobriety 01/21/20 06:49 Steady gait, pain improved s/p lidoderm but still present and wants robaxin -robaxin Safe for d/c. Will discharge home with PCP f/u. Return precautions given. Pt understands all discharge instructions and all questions were answered. Discharge - Discharge Information Problems reviewed: Yes Clinical Impression/Diagnosis: Alcohol intoxication, Back pain Condition: Improved Disposition: HOME - Admission No - Follow up/Referral - Patient Discharge Instructions Additional Instructions: Follow-up with your primary care doctor within 1 week. Return to the Emergency Department for any new or worsening symptoms including numbness, difficulty walking, fever, or weakness. - Post Discharge Activity
--- NOTE | 2020-01-21 04:20 | PDOC ---
Attending Attestation - Resident Resident Name: Fabiana Cisneros - ED Attending Attestation I have performed the following: I have examined & evaluated the patient, The case was reviewed & discussed with the resident, I agree w/resident's findings & plan - HPI HPI: 01/21/20 04:19 Pt comes to the ER almost daily looking for chcf and sometimes with medical complaints other times. - Physicial Exam PE: 01/22/20 22:13 Agree with resident exam - Medical Decision Making 01/22/20 22:13 Pt slept here all night and he is stable for d/c home. Discharge - Discharge Information Problems reviewed: Yes Clinical Impression/Diagnosis: Alcohol intoxication, Back pain Condition: Improved Disposition: HOME - Follow up/Referral - Patient Discharge Instructions Additional Instructions: Follow-up with your primary care doctor within 1 week. Return to the Emergency Department for any new or worsening symptoms including numbness, difficulty walking, fever, or weakness. - Post Discharge Activity
[2020-01-21] MEDS ORDERED: LIDOCAINE 5% TOPICAL PATCH ONE (04:22)
[2020-01-21] MEDS ORDERED: METHOCARBAMOL 500 MG TABLET PO ONE (06:51)
[2020-01-21] MEDS ORDERED: METHOCARBAMOL 500 MG TABLET ONE (06:54)
[2020-01-21 07:02] VITALS: PULSE 60
[2020-01-21] MEDS ORDERED: LIDOCAINE PATCH REMOVAL MC SCH (22:00)
== END 2020-01-21 07:02 | disposition home or self-care (01) ==
LOC: JER 23:18
DX: F10.920 Alcohol use, unspecified with intoxication, uncomplicated (principal); M54.9 Dorsalgia, unspecified
CPT/HCPCS: 99284-25

== ENCOUNTER 2020-01-21 22:32 | Emergency (ER) | payer OTHER ==
[2020-01-21 23:02] VITALS: BP 138/76; PULSE 91; TEMP 98.3; BMI 33.0
--- NOTE | 2020-01-22 04:14 | PDOC ---
Attending Attestation - Resident Resident Name: Migue Pimentel - ED Attending Attestation I have performed the following: I have examined & evaluated the patient, The case was reviewed & discussed with the resident, I agree w/resident's findings & plan - HPI HPI: 01/23/20 02:15 Pt comes with his usual complaints. He wants a place to sleep. - Physicial Exam PE: 01/23/20 02:15 Agree with resident exam - Medical Decision Making 01/23/20 02:16 Home with no meds. Discharge - Discharge Information Problems reviewed: Yes Clinical Impression/Diagnosis: Low back pain Qualifiers: Chronicity: unspecified - Follow up/Referral - Patient Discharge Instructions Patient Printed Discharge Instructions: Low Back Pain Additional Instructions: You came to the ED for low back pain. This is most likely from your chronic condition At the ED we evaluated you and gave you robaxin. Please follow up with your pcp for further evaluation. If you have any of the following please come back: - unable to stand on leg - fever - inability to urinate - loss of control of bowel movements or urination For any Emergent symptoms call for medical helpl right away. - Post Discharge Activity
--- NOTE | 2020-01-22 05:09 | PDOC ---
History of Present Illness - General Chief Complaint: Alcohol intoxication Stated Complaint: BACK AND KNEEE PAIN Time Seen by Provider: 01/22/20 04:13 - History of Present Illness Initial Comments: 01/22/20 05:09 65 yo male with meseothelioma presents to ED for chronic left lower back pain that he has had for years. Pt usually takes robaxin and librium and pain subsides. Pt today asking for robaxin for pain. Pain goes down left leg. Pt has on change since yesterday when he came to ED for similar complaint. Pt today denies any urinary retention, loss of control of bowels or urination, fevers, chills, worsening shortness of breath, chest pain, abdominal pain, dysuria or urniary frequency. PMH: mesothelioma Meds: denies PSH: denies Social: EtOh abuser; denies drugs and tobacco PCP: tyrel 01/22/20 05:14 Past History - Medical History Allergies/Adverse Reactions: Allergies Allergy/AdvReac Type Severity Reaction Status Date / Time Fish Containing Products Allergy Mild Swelling Verified 01/20/20 23:24 No Known Drug Allergies Allergy Verified 01/20/20 23:24 Home Medications: Ambulatory Orders Acetaminophen [Tylenol .Regular Strength -] 650 mg PO Q6H PRN tablet 01/11/20 Amlodipine Besylate [Norvasc -] 10 mg PO DAILY tablet 01/11/20 Cephalexin Monohydrate [Keflex -] 500 mg PO Q6HPO #40 capsule 01/11/20 Insulin Sliding Scale [Novolog Vial Sliding Scale -] 1 vial SQ TIDAC units 01/11/20 Magnesium Oxide [Mag-Ox -] 400 mg PO BID tablet 01/11/20 Anemia: No Asthma: No Cancer: Yes (mesothelioma lung cancer) Cardiac Disorders: No CVA: No COPD: No CHF: No DVT: No Dementia: No Diabetes: No Dialysis: No GI Disorders: No Disorders: No HTN: Yes (non compliant with meds.) Hypercholesterolemia: Yes Kidney Stones: No Liver Disease: Yes (ETOH abuse) Psychiatric Problems: Yes (ETOH abuse) Seizures: No Thyroid Disease: No Lung CA: Yes (Mesothelioma) - Surgical History Abdominal Surgery: No Appendectomy: No Cardiac Surgery: No Cholecystectomy: No Lung Surgery: No Neurologic Surgery: No Orthopedic Surgery: No - Reproductive History Testicular Surgery: No - Immunization History Td Vaccination: Yes TDAP Vaccination: Yes Immunization Up to Date: Yes - Psycho-Social/Smoking History Smoking Status: No Smoking History: Never smoked Have you smoked in the past 12 months: No Number of Cigarettes Smoked Daily: 0 If you are a former smoker, when did you quit?: 0 Cigars Per Day: 0 'Breaking Loose' booklet given: 09/22/17 - Substance Abuse Hx (Audit-C & DAST Scrn) How often the patient has a drink containing alcohol: 4 0r more times/wk Number of drinks the patient has on a typical day: 10 or more How often the patient has six or more drinks on one occasion: Daily or almost daily Score: In Men: 4 or > Positive; In Women: 3 or > Positive: 12 Screen Result (Pos requires Nsg. Audit-10AR): Positive In the last yr the pt used illegal drug/Rx for NonMed reason: No Score: Yes response is considered Positive: 0 Screen Result (Positive result requires Nsg. DAST-10): Negative Review of Systems - Review of Systems Comments:: 01/22/20 05:18 GENERAL/CONSTITUTIONAL: No fever or chills. No weakness. HEAD, EYES, EARS, NOSE AND THROAT: No change in vision. No ear pain or discharge. No sore throat. CARDIOVASCULAR: No chest pain or shortness of breath RESPIRATORY: No cough, wheezing, or hemoptysis. GASTROINTESTINAL: No nausea, vomiting, diarrhea or constipation. GENITOURINARY: No dysuria, frequency, or change in urination. MUSCULOSKELETAL:Back pain SKIN: No rash NEUROLOGIC: No headache, vertigo, loss of consciousness, or change in strength/sensation. ENDOCRINE: No increased thirst. No abnormal weight change HEMATOLOGIC/LYMPHATIC: No anemia, easy bleeding, or history of blood clots. ALLERGIC/IMMUNOLOGIC: No hives or skin allergy. *Physical Exam - Vital Signs Last Vital Signs Temp Pulse Resp BP Pulse Ox 98.3 F 91 H 20 138/76 95 01/21/20 22:55 01/21/20 22:55 01/21/20 22:55 01/21/20 22:55 01/21/20 22:55 - Physical Exam 01/22/20 05:19 GENERAL: Awake, alert, and fully oriented, in no acute distress HEAD: No signs of trauma, normocephalic, atraumatic EYES: PERRLA, EOMI, sclera anicteric, conjunctiva clear ENT: Auricles normal inspection, hearing grossly normal, nares patent, oropharynx clear without exudates. Moist mucosa NECK: Normal ROM, supple, no lymphadenopathy, JVD, or masses LUNGS: No distress, speaks full sentences, clear to auscultation bilaterally HEART: Regular rate and rhythm, normal S1 and S2, no murmurs, rubs or gallops, peripheral pulses normal and equal bilaterally. ABDOMEN: Soft, nontender, normoactive bowel sounds. No guarding, no rebound. No masses EXTREMITIES : Bilateral peripheral edema (chronic) NEUROLOGICAL: Cranial nerves II through XII grossly intact. Normal speech, normal gait, no focal sensorimotor deficits. Tenderness to palpation on left lower lumbar area. SKIN: Warm, Dry, normal turgor, no rashes or lesions noted Medical Decision Making - Medical Decision Making 01/22/20 05:20 65 yo male coming in with chronic lower back pain. Will give 1000mg robaxin and DC. Discharge - Discharge Information Problems reviewed: Yes Clinical Impression/Diagnosis: Low back pain Qualifiers: Chronicity: unspecified - Follow up/Referral - Patient Discharge Instructions Patient Printed Discharge Instructions: Low Back Pain Additional Instructions: You came to the ED for low back pain. This is most likely from your chronic condition At the ED we evaluated you and gave you robaxin. Please follow up with your pcp for further evaluation. If you have any of the following please come back: - unable to stand on leg - fever - inability to urinate - loss of control of bowel movements or urination For any Emergent symptoms call for medical helpl right away. - Post Discharge Activity
[2020-01-22] MEDS ORDERED: METHOCARBAMOL 500 MG TABLET PO ONE (05:11)
[2020-01-22] MEDS ORDERED: METHOCARBAMOL 500 MG TABLET ONE ×2 (05:16→05:17)
== END 2020-01-22 07:07 ==
LOC: JER 22:32
DX: M54.5 Low back pain (principal)
CPT/HCPCS: 99283-25

== ENCOUNTER 2020-01-22 23:11 | Emergency (ER) | payer OTHER ==
[2020-01-22 23:15] VITALS: BMI 33.0
--- NOTE | 2020-01-23 01:34 | PDOC ---
History of Present Illness - General Chief Complaint: Back Pain Stated Complaint: Back pain Time Seen by Provider: 01/23/20 01:34 Past History - Medical History Allergies/Adverse Reactions: Allergies Allergy/AdvReac Type Severity Reaction Status Date / Time Fish Containing Products Allergy Mild Swelling Verified 01/20/20 23:24 No Known Drug Allergies Allergy Verified 01/20/20 23:24 Home Medications: Ambulatory Orders Acetaminophen [Tylenol .Regular Strength -] 650 mg PO Q6H PRN tablet 01/11/20 Amlodipine Besylate [Norvasc -] 10 mg PO DAILY tablet 01/11/20 Cephalexin Monohydrate [Keflex -] 500 mg PO Q6HPO #40 capsule 01/11/20 Insulin Sliding Scale [Novolog Vial Sliding Scale -] 1 vial SQ TIDAC units 01/11/20 Magnesium Oxide [Mag-Ox -] 400 mg PO BID tablet 01/11/20 Anemia: No Asthma: No Cancer: Yes (mesothelioma lung cancer) Cardiac Disorders: No CVA: No COPD: No CHF: No DVT: No Dementia: No Diabetes: No Dialysis: No GI Disorders: No Disorders: No HTN: Yes (non compliant with meds.) Hypercholesterolemia: Yes Kidney Stones: No Liver Disease: Yes (ETOH abuse) Psychiatric Problems: Yes (ETOH abuse) Seizures: No Thyroid Disease: No Lung CA: Yes (Mesothelioma) - Surgical History Abdominal Surgery: No Appendectomy: No Cardiac Surgery: No Cholecystectomy: No Lung Surgery: No Neurologic Surgery: No Orthopedic Surgery: No - Reproductive History Testicular Surgery: No - Immunization History Td Vaccination: Yes TDAP Vaccination: Yes Immunization Up to Date: Yes - Psycho-Social/Smoking History Smoking Status: No Smoking History: Never smoked Have you smoked in the past 12 months: No Number of Cigarettes Smoked Daily: 0 If you are a former smoker, when did you quit?: 0 Cigars Per Day: 0 'Breaking Loose' booklet given: 09/22/17 - Substance Abuse Hx (Audit-C & DAST Scrn) How often the patient has a drink containing alcohol: 4 0r more times/wk Number of drinks the patient has on a typical day: 10 or more How often the patient has six or more drinks on one occasion: Daily or almost daily Score: In Men: 4 or > Positive; In Women: 3 or > Positive: 12 Screen Result (Pos requires Nsg. Audit-10AR): Positive In the last yr the pt used illegal drug/Rx for NonMed reason: No Score: Yes response is considered Positive: 0 Screen Result (Positive result requires Nsg. DAST-10): Negative *Physical Exam - Vital Signs Last Vital Signs Temp Pulse Resp BP Pulse Ox 98.3 F 100 H 20 106/66 95 01/22/20 23:13 01/22/20 23:13 01/22/20 23:13 01/22/20 23:13 01/22/20 23:13 Medical Decision Making - Medical Decision Making 01/23/20 01:34 HPI: 65yo M hx EtOH abuse, HTN, mesothelioma, chronic back pain, and previously diagnosed COVID 19 c/o chronic back pain and R hip soreness, unchanged recently, constant, unchanging, nothing makes better or worse. Denies saddle anesthesia, incontinence or retention, falls, trauma, F/C, N/V, focal weakness, numbness, incontinence, CP, SOB. Endorses daily alcohol abuse 1 pint per day. Pt is requesting food. Pt denies detox. ROS: Constitutional: Negative for chills, fever, fatigue, diaphoresis. HENT: Negative for sore throat, rhinorrhea, congestion. Eyes: Negative for visual disturbance. Respiratory: Negative for shortness of breath, cough, and wheezing. Cardiovascular: Negative for chest pain, palpitations, and leg swelling. Gastrointestinal: Negative for abdominal pain, blood in stool, constipation, diarrhea, nausea, and vomiting. Genitourinary: Negative for dysuria, flank pain, and hematuria. Musculoskeletal: Positive for back pain. Negative for myalgias and neck pain. Skin: Negative for rash. Neurological: Negative for light-headedness, dizziness, vertigo, syncope, weakness, numbness and headaches. Psychiatric/Behavioral: Positive for alcohol abuse. Negative for behavioral problems and confusion. PE: Gen: Alert, NAD, comfortable-appearing, disheveled HEENT: PERRL, EOMI, dry MM, NCAT CV: Regular rate and rhythm. No murmurs, rubs, or gallops. PULM: No resp distress. CTAB, no wheezes, rales, or rhonchi. ABD: protuberant, soft, NT/ND, no rebound tenderness or guarding, no CVA tenderness. BACK: No TTP of c/t/l-spine. No step-offs or deformities. MSK: No bony deformities. 2+ pulses in all extremities. NEURO: AAO to name, place, and situation. PERRL. Slurred speech but no other gross CN deficits. Strength and sensation grossly intact throughout. EXTREMITIES: No cyanosis. No clubbing. PSYCH: Normal mood and thought pattern. SKIN: Warm and dry. Normal capillary refill. No rashes. No jaundice. MDM: 65yo M hx EtOH abuse, HTN, mesothelioma, chronic back pain, and previously diagnosed COVID [address] for alcohol intoxication complaining of chronic back pain, unchanged recently, requesting lidoderm patch. Hemodynamically stable, afebrile, slurred speech likely due to intoxication, ot herwise neurologically intact, otherwise benign exam. Back pain consistent with chronic pain. No red flags or changes concerning for fracture, cord compression, cauda equina, spinal abscess, or other emergent pathology at this time. No neurologic deficits. Ambulates without difficulty. -lidoderm patch -observe and reassess s/p clinical sobriety 01/23/20 05:34 Sleeping comfortably 01/23/20 06:14 Steady gait, tolerated PO, clinical sober. Safe for d/c. Will discharge home with PCP f/u. Return precautions given. Pt understands all discharge instructions and all questions were answered. Discharge - Discharge Information Problems reviewed: Yes Clinical Impression/Diagnosis: Alcohol intoxication, Back pain Condition: Improved Disposition: HOME - Admission No - Follow up/Referral - Patient Discharge Instructions Additional Instructions: Follow up with your primary care doctor within 1 week. Return to the Emergency Department with any new or worsening symptoms including inability to walk or talk, passing out, chest pain, or difficulty breathing. - Post Discharge Activity
--- NOTE | 2020-01-23 02:04 | PDOC ---
Attending Attestation - Resident Resident Name: Fabiana Cisneros - ED Attending Attestation I have performed the following: I have examined & evaluated the patient, The case was reviewed & discussed with the resident, I agree w/resident's findings & plan - HPI HPI: 01/23/20 02:16 Pt comes with his usual complaints. - Physicial Exam PE: 01/23/20 02:18 Agree with resident exam - Medical Decision Making 01/23/20 02:18 pt slept here all night and he is ready to go back to the streets and head home 01/23/20 02:18 Pt refusing detox Discharge - Discharge Information Problems reviewed: Yes Clinical Impression/Diagnosis: Alcohol intoxication - Follow up/Referral - Patient Discharge Instructions - Post Discharge Activity
[2020-01-23] MEDS ORDERED: LIDOCAINE 5% TOPICAL PATCH TP ONE (02:05)
[2020-01-23] MEDS ORDERED: LIDOCAINE 5% TOPICAL PATCH ONE (03:36)
[2020-01-23 03:48] VITALS: BP 119/77; PULSE 98; TEMP 98.2
[2020-01-23] MEDS ORDERED: LIDOCAINE PATCH REMOVAL MC SCH (22:00)
== END 2020-01-23 06:33 | disposition home or self-care (01) ==
LOC: JER 23:11
DX: F10.929 Alcohol use, unspecified with intoxication, unspecified (principal); M54.9 Dorsalgia, unspecified
CPT/HCPCS: 99283-25

== ENCOUNTER 2020-01-28 20:09 | Inpatient (IN) | payer OTHER ==
--- NOTE | 2020-01-28 22:52 | PDOC ---
History of Present Illness - General Chief Complaint: Back Pain Stated Complaint: BACK PAIN Time Seen by Provider: 01/28/20 22:42 History Source: Patient Exam Limitations: No Limitations - History of Present Illness Initial Comments: 65 yo M well known to the emergency department with a hx of HTN, mesothelioma, back pain, and ETOH abuse presents to the emergency department with back pain. Per the patient, the back pain is unchanged from his usual baseline and described as a 4/10 dull lower back pain without radiation without relieving agents and worsens when he sleeps "in the wrong position". At the time of speaking to the patient, they stated they want to try to "sleep it off". The patient states he drinks approximately 1 pint of vodka per day. Patient at this time refuses detox. Past History - Medical History Allergies/Adverse Reactions: Allergies Allergy/AdvReac Type Severity Reaction Status Date / Time Fish Containing Products Allergy Mild Swelling Verified 01/20/20 23:24 No Known Drug Allergies Allergy Verified 01/20/20 23:24 Home Medications: Ambulatory Orders Folic Acid 1 mg PO DAILY #30 tablet 02/03/20 Lidocaine 5% Patch [Lidoderm -] 1 patch TP DAILY #30 patch 02/03/20 Thiamine HCl 100 gm MC DAILY #30 powder 02/03/20 Anemia: No Asthma: No Cancer: Yes (mesothelioma lung cancer) Cardiac Disorders: No CVA: No COPD: No CHF: No DVT: No Dementia: No Diabetes: No Dialysis: No GI Disorders: No Disorders: No HTN: Yes (non compliant with meds.) Hypercholesterolemia: Yes Kidney Stones: No Liver Disease: Yes (ETOH abuse) Psychiatric Problems: Yes (ETOH abuse) Seizures: No Thyroid Disease: No Lung CA: Yes (Mesothelioma) - Surgical History Abdominal Surgery: No Appendectomy: No Cardiac Surgery: No Cholecystectomy: No Lung Surgery: No Neurologic Surgery: No Orthopedic Surgery: No - Reproductive History Testicular Surgery: No - Immunization History Td Vaccination: Yes TDAP Vaccination: Yes Immunization Up to Date: Yes - Psycho-Social/Smoking History Smoking Status: No Smoking History: Unknown if ever smoked Have you smoked in the past 12 months: No Number of Cigarettes Smoked Daily: 0 If you are a former smoker, when did you quit?: 0 Cigars Per Day: 0 'Breaking Loose' booklet given: 09/22/17 - Substance Abuse Hx (Audit-C & DAST Scrn) How often the patient has a drink containing alcohol: 4 0r more times/wk Number of drinks the patient has on a typical day: 5 or 6 How often the patient has six or more drinks on one occasion: Daily or almost daily Score: In Men: 4 or > Positive; In Women: 3 or > Positive: 10 Screen Result (Pos requires Nsg. Audit-10AR): Positive In the last yr the pt used illegal drug/Rx for NonMed reason: No Score: Yes response is considered Positive: 0 Screen Result (Positive result requires Nsg. DAST-10): Negative Review of Systems - Review of Systems Able to Perform ROS?: Yes Is the patient limited Khmer proficient: No Constitutional: No: Chills, Diaphoresis, Fever, Weakness HEENTM: No: Ear Pain, Nose Pain, Throat Pain Respiratory: No: Cough, Shortness of Breath Cardiac (ROS): No: Chest Pain, Lightheadedness ABD/GI: No: Constipated, Diarrhea, Nausea, Vomiting, Abdominal cramping : No: Burning, Dysuria, Hematuria Musculoskeletal: Yes: Back Pain. No: Joint Pain, Neck Pain Integumentary: No: Bruising, Rash Neurological: No: Headache, Numbness, Tingling, Tremors Psychiatric: No: Change in Appetite Endocrine: No: Unexplained Weight Loss Hematologic/Lymphatic: No: Anemia *Physical Exam - Vital Signs Last Vital Signs Temp Pulse Resp BP Pulse Ox 98.1 F 90 20 96/63 97 01/28/20 20:34 01/28/20 20:34 01/28/20 20:34 01/28/20 20:34 01/28/20 20:34 - Physical Exam General Appearance: Yes: Nourished, Appropriately Dressed, Alcohol on Breath. No: Apparent Distress HEENT: positive: EOMI, DOUGLAS, Normal Voice, Symmetrical, Pharynx Normal. negative: Pale Conjunctivae, Scleral Icterus (R), Scleral Icterus (L), Muffled/Hoarse voice, Pharyngeal Erythema, Tonsillar Exudate, Tonsillar Erythema Neck: positive: Trachea midline, Supple. negative: Tender, Lymphadenopathy (R), Lymphadenopathy (L) Respiratory/Chest: positive: Lungs Clear, Normal Breath Sounds. negative: Chest Tender, Respiratory Distress, Accessory Muscle Use Cardiovascular: positive: Regular Rhythm, Regular Rate, S1, S2. negative: Systolic Murmur Gastrointestinal/Abdominal: positive: Normal Bowel Sounds, Flat, Soft. negative: Tender Lymphatic: negative: Adenopathy Musculoskeletal: positive: Normal Inspection, Other (paraspinal tenderness L3-L5 bilaterally without midline involvement. ). negative: CVA Tenderness, Vertebral Tenderness Extremity: positive: Normal Capillary Refill, Normal Range of Motion. negative: Normal Inspection (trace LE edema bilaterally unchanged from previous examinations), Tender Integumentary: positive: Normal Color, Dry, Warm Neurologic: positive: Fully Oriented, Alert, Normal Mood/Affect, Motor Strength 5/5 (no motor deficits in the LE bilaterally). negative: Sensory Deficit (no decreased sensation in the LE bilaterally) ED Treatment Course - LABORATORY CBC & Chemistry Diagram: 02/03/20 06:47 02/03/20 06:47 Medical Decision Making - Medical Decision Making 01/29/20 06:58 Initial vitals: Initial Vital Signs Temp Pulse Resp BP Pulse Ox 98.1 F 90 20 96/63 97 01/28/20 20:34 01/28/20 20:34 01/28/20 20:34 01/28/20 20:34 01/28/20 20:34 Work up: patient states they want to sleep and refuses imaging and labs at this time. also refuses treatment and asks for food which a turkey sandwich was provided to him, At approximately 6am, the patient was re-assessed and noted to be short of breath. The patient stated that he feels like he cant breathe. He was noted to have anders-oribital edema with rhonchi breath sounds bilaterally. Patient to have cbc, cmp, bnp, trop, ekg, cxr, iv. Possibly SOB secondary to COPD vs CHF exacerbation . O2 noted to be 94% on RA. Patient was signed out to Dr. Davis Discharge - Discharge Information Problems reviewed: Yes Clinical Impression/Diagnosis: Leg swelling COPD (chronic obstructive pulmonary disease) Qualifiers: COPD type: unspecified COPD Qualified Code(s): J44.9 - Chronic obstructive pulmonary disease, unspecified Back pain Qualifiers: Back pain location: low back pain Chronicity: chronic Back pain laterality: midline Sciatica presence: unspecified whether sciatica present Qualified Code(s): M54.5 - Low back pain - Follow up/Referral - Patient Discharge Instructions - Post Discharge Activity
--- NOTE | 2020-01-28 23:35 | PDOC ---
Documentation entered by Mat Shaw SCRIBE, acting as scribe for Jamal Rodriges MD. Jamal Rodriges MD: This documentation has been prepared by the Colin pereira Xhesika, SCRIBE, under my direction and personally reviewed by me in its entirety. I confirm that the documentation accurately reflects all work, treatment, procedures, and medical decision making performed by me. Attending Attestation - Resident Resident Name: DaniloKobi - ED Attending Attestation I have performed the following: I have examined & evaluated the patient, The case was reviewed & discussed with the resident, I agree w/resident's findings & plan, Exceptions are as noted - HPI HPI: 01/28/20 23:31 The patient is a 65yo M with a hx of EtOH abuse, HTN, mesothelioma, chronic back pain, and previously diagnosed COVID 19 c/o chronic back pain and R hip soreness who presents to the ED stating he "wants to sleep." Endorses daily alcohol abuse 1 pint per day. Pt is requesting food. Pt refusing detox. Allergies: NKDA. Fish containing products. - Physicial Exam PE: 01/28/20 23:36 See resident exam - Medical Decision Making 01/28/20 23:36 65 M with ETOH intox. No evidence of acute trauma. - Reassess when sober 01/29/20 06:10 Pt now clinically sober Pt reassessed - now complaining of SOB On exam, pt noted to have BLE edema and facial edema. Will send labs, get CXR Discharge - Discharge Information Problems reviewed: Yes Clinical Impression/Diagnosis: Leg swelling, Back pain COPD (chronic obstructive pulmonary disease) Qualifiers: COPD type: unspecified COPD Qualified Code(s): J44.9 - Chronic obstructive pulmonary disease, unspecified Condition: Stable - Follow up/Referral - Patient Discharge Instructions - Post Discharge Activity
[2020-01-29] MEDS ORDERED: ALBUTEROL SO4 2.5/IPRATROPIUM 0.5 INH SOL 3 ML VIAL.NEB. NEB ONE ×2 (06:15→06:16)
[2020-01-29 07:18] LABS: BASO % 0.8 % (0-2.0); HEMATOCRIT 33.5 % (35.4-49); HEMOGLOBIN 10.5 GM/dL (11.7-16.9); LYMPH % 25.4 % (8-40); MCH 25.8 pg (25.7-33.7); MCHC 31.4 g/dl (32.0-35.9); MEAN CELL VOLUME 82.2 fl (80-96); MEAN PLT VOLUME 7.5 fl (7.5-11.1); MONO % 4.9 % (3.8-10.2); NEUT % 66.9 % (42.8-82.8); PLATELET COUNT 291 K/MM3 (134-434); RBC 4.08 M/mm3 (4.00-5.60); RDW 19.7 % (11.9-15.9); WHITE BLOOD COUNT 9.2 K/mm3 (4.0-10.0)
[2020-01-29 07:40] LABS: PROTHROMBIN TIME (PATIENT) 11.8 SEC (9.7-13.0)
--- NOTE | 2020-01-29 07:46 | PDOC ---
*Physical Exam - Vital Signs Last Vital Signs Temp Pulse Resp BP Pulse Ox 98.1 F 103 H 22 H 147/89 99 01/28/20 20:34 01/29/20 06:25 01/29/20 06:25 01/29/20 06:25 01/29/20 06:25 ED Treatment Course - LABORATORY CBC & Chemistry Diagram: 01/30/20 07:19 01/30/20 07:19 - ADDITIONAL ORDERS Additional order review: Laboratory Results 01/29/20 06:58 PT with INR 11.80 INR 1.00 01/29/20 06:58 RBC 4.08 MCV 82.2 MCHC 31.4 L RDW 19.7 H MPV 7.5 Neutrophils % 66.9 Lymphocytes % 25.4 D Monocytes % 4.9 Eosinophils % 2.0 Basophils % 0.8 - Medications Given in the ED: ED Medications Discontinued Medications Generic Name Dose Route Start Last Admin Trade Name Freq PRN Reason Stop Dose Admin Albuterol/Ipratropium 3 amp 01/29/20 06:15 01/29/20 06:25 Duoneb - NEB 01/29/20 06:16 3 amp ONCE ONE Administration Medical Decision Making - Medical Decision Making Pt received as sign out Plan for admission for COPD and b/l periorbital edema and BLE edema Will give Solumedrol in addition to pt's duo-nebs Pt breathing comfortably on room air Pt signed out to Toby Admitting 01/31/20 00:16 Discharge - Discharge Information Problems reviewed: Yes Clinical Impression/Diagnosis: Leg swelling COPD (chronic obstructive pulmonary disease) Qualifiers: COPD type: unspecified COPD Qualified Code(s): J44.9 - Chronic obstructive pulmonary disease, unspecified Condition: Stable - Admission Yes - Follow up/Referral - Patient Discharge Instructions - Post Discharge Activity
[2020-01-29 07:54] LABS: ALK PHOS 107 U/L (45-117); ANION GAP 11 MMOL/L (8-16); BLOOD UREA NITROGEN 4.9 mg/dL (7-18); CALCIUM 8.4 mg/dL (8.5-10.1); CHLORIDE 109 mmol/L (98-107); CO2 26 mmol/L (21-32); CREATININE 0.7 mg/dL (0.55-1.3); GLUCOSE,RANDOM 90 mg/dL (74-106); N-TERMINAL BNP 97.8 pg/ml (5-125); POTASSIUM 3.6 mmol/L (3.5-5.1); SGOT/AST 35 U/L (15-37); SGPT/ALT 23 U/L (13-61); SODIUM 146 mmol/L (136-145); TOT PROT 6.4 g/dl (6.4-8.2)
[2020-01-29 07:57] LABS: BILIRUBIN,TOTAL 0.6 mg/dL (0.2-1)
[2020-01-29] MEDS ORDERED: methylPREDNISolone NA SUCC 125 MG/2 ML VIAL IVPB ONE (09:24)
[2020-01-29] MEDS ORDERED: methylPREDNISolone NA SUCC 125 MG/2 ML VIAL ONE (09:50)
[2020-01-29] MEDS ORDERED: ALBUTEROL SO4 HFA INHALER IH PRN (11:51)
[2020-01-29] MEDS ORDERED: ALBUTEROL SO4 2.5/IPRATROPIUM 0.5 INH SOL 3 ML VIAL.NEB. NEB PRN (11:51)
--- NOTE | 2020-01-29 11:55 | HP ---
Admitting History and Physical - Primary Care Physician PCP: Fabiana Lin - Admission Chief Complaint: Feeling shortness of breath History of Present Illness: 65 years old man poor historian, noncooperative, homeless, frequent hospitalization and ED visit, chronic venous stasis changes, ? COPD active smoker history of alcohol abuse presented to ED complaining of shortness of breath, does not provide much information but only presents normal considering medical history treatment for further management, patient remained non- cooperative insisting that he need to stay in the hospital, complaint of pain all over the body, says lower extremity swelling has improved since previous hospitalization. In the ED BNP is normal. No fever hemodynamically stable CBC BMP LFTs are at baseline. History Source: Patient - Past Medical History Cardiovascular: Yes: HTN, Hyperlipdemia Pulmonary: Yes: Cancer (Mesothelioma), Other (asbestosis) Gastrointestinal: Yes: GERD Psych: Yes: Addictions (EtOH) Musculoskeletal: Yes: Chronic low back pain, Other (joint pain) - Past Surgical History Past Surgical History: Yes: None, Colonoscopy (pt may have had - not sure). 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 History of Recent Travel: No Home Medications - Allergies Allergies/Adverse Reactions: Allergies Allergy/AdvReac Type Severity Reaction Status Date / Time Fish Containing Products Allergy Mild Swelling Verified 01/20/20 23:24 No Known Drug Allergies Allergy Verified 01/20/20 23:24 - Home Medications Home Medications: Ambulatory Orders NK [No Known Home Medication] 01/29/20 Family Medical History Family Hx Cancer: Mother (knees - was going to have replacement, got infection and (in her 80s)), Father (prostate, of in his 80s) Family Hx Cardiac Disorders: Mother Family Hx Coronary Artery Disease: Son ( of CA at 35) Review of Systems - Review of Systems Constitutional: denies: Chills, Diaphoresis, Fever, Lethargy Eyes: denies: Blind Spots, Blurred Vision, Double Vision, Eye Pain HENT: denies: Difficult Swallowing, Ear Discharge, Ear Pain, Epistaxis Neck: denies: Decreased ROM, Lumps, Pain on Movement, Stiffness Cardiovascular: reports: Edema, Shortness of Breath. denies: Chest Pain, Palpitations Respiratory: reports: Exercise Intolerance, SOB on Exertion. denies: Hemopt ysis, Orthopnea, Wheezing Gastrointestinal: denies: Melena, Nausea Musculoskeletal: reports: Back Pain, Extremity Pain, Joint Swelling, Muscle Pain Neurological: denies: Change in LOC, Change in Speech, Confusion, Headache, I ncoordination, Numbness, Parasthesia Endocrine: denies: Excessive Sweating, Flushing, Increased Hunger Hematology/Lymphatic: denies: Easily Bruised, Excessive Bleeding, Swollen Glands Physical Examination Vital Signs: Vital Signs Temperature 98.1 F 01/28/20 20:34 Pulse Rate 100 H 01/29/20 10:43 Respiratory Rate 20 01/29/20 10:43 Blood Pressure 164/99 01/29/20 10:43 O2 Sat by Pulse Oximetry (%) 97 01/29/20 10:43 General: Elderly disheveled man man, noncooperative comfortable, not in distress HEENT mucous membranes moist, no anemia, no jaundice, PERRLA, no nystagmus Neck: No JVD, supple, no bruit, thyroid palpably normal, normal carotid pulsations. Chest: Non-tender, clear to auscultation bilaterally CVS: S1-S2 regular/ no murmur/gallop/rub Abdomen: Nondistended, soft, bowel sounds present. Extremities: Bilateral lower extremity swelling venous stasis changes and edema , No Calf tenderness, pulses present NURSE INFORMATICS EDUCATOR: AO X3 , no gross motor sensory deficit Labs: CBC, BMP 01/29/20 06:58 01/29/20 06:58 CBC,CMP WBC 9.2 K/mm3 (4.0-10.0) 01/29/20 06:58 RBC 4.08 M/mm3 (4.00-5.60) 01/29/20 06:58 Hgb 10.5 GM/dL (11.7-16.9) L 01/29/20 06:58 Hct 33.5 % (35.4-49) L 01/29/20 06:58 MCV 82.2 fl (80-96) 01/29/20 06:58 MCH 25.8 pg (25.7-33.7) 01/29/20 06:58 MCHC 31.4 g/dl (32.0-35.9) L 01/29/20 06:58 RDW 19.7 % (11.9-15.9) H 01/29/20 06:58 Plt Count 291 K/MM3 (134-434) D 01/29/20 06:58 MPV 7.5 fl (7.5-11.1) 01/29/20 06:58 Absolute Neuts (auto) 6.1 K/mm3 (1.5-8.0) 01/29/20 06:58 Neutrophils % 66.9 % (42.8-82.8) 01/29/20 06:58 Lymphocytes % 25.4 % (8-40) D 01/29/20 06:58 Monocytes % 4.9 % (3.8-10.2) 01/29/20 06:58 Eosinophils % 2.0 % (0-4.5) 01/29/20 06:58 Basophils % 0.8 % (0-2.0) 01/29/20 06:58 Nucleated RBC % 0 % (0-0) 01/29/20 06:58 Sodium 146 mmol/L (136-145) H 01/29/20 06:58 Potassium 3.6 mmol/L (3.5-5.1) 01/29/20 06:58 Chloride 109 mmol/L (98-107) H 01/29/20 06:58 Carbon Dioxide 26 mmol/L (21-32) 01/29/20 06:58 Anion Gap 11 MMOL/L (8-16) 01/29/20 06:58 BUN 4.9 mg/dL (7-18) L 01/29/20 06:58 Creatinine 0.7 mg/dL (0.55-1.3) 01/29/20 06:58 Est GFR (CKD-EPI)AfAm 114.78 01/29/20 06:58 Est GFR (CKD-EPI)NonAf 99.03 01/29/20 06:58 Random Glucose 90 mg/dL (74-106) 01/29/20 06:58 Calcium 8.4 mg/dL (8.5-10.1) L 01/29/20 06:58 Total Bilirubin 0.6 mg/dL (0.2-1) 01/29/20 06:58 AST 35 U/L (15-37) 01/29/20 06:58 ALT 23 U/L (13-61) 01/29/20 06:58 Alkaline Phosphatase 107 U/L (45-117) 01/29/20 06:58 Creatine Kinase 77 U/L (26-308) 01/29/20 06:58 Troponin I < 0.02 ng/ml (0.00-0.05) 01/29/20 06:58 B-Natriuretic Peptide 97.8 pg/ml (5-125) 01/29/20 06:58 Total Protein 6.4 g/dl (6.4-8.2) 01/29/20 06:58 Albumin 3.0 g/dl (3.4-5.0) L 01/29/20 06:58 Alcohol level: Imaging - Results Chest X-ray: Report Reviewed (Poor expiration left breast atelectasis) Problem List - Problems (1) Shortness of breath Assessment/Plan: Patient complaint of shortness of breath, history of COPD/asthma consent pending could be started albuterol as needed, O2 inhalation will defer any IV steroids a t present as patient is saturating well and looks comfortable, follow-up lower extremity Doppler and d-dimer. Meantime continue DVT prophylaxis BNP is normal chest examination normal patient is. Problems reviewed: Yes Code(s): R06.02 - SHORTNESS OF BREATH (2) Alcohol abuse Assessment/Plan: Patient has multiple hospitalization with help of alcohol abuse, at present denies any hallucination or delusion no tachycardia no elevated blood pressure we will continue Librium protocol thiamine folic acid follow-up Problems reviewed: Yes Code(s): F10.10 - ALCOHOL ABUSE, UNCOMPLICATED (3) Chronic venous stasis Assessment/Plan: Continue Keflex Problems reviewed: Yes Code(s): I87.8 - OTHER SPECIFIED DISORDERS OF VEINS Assessment/Plan Active Medications Albuterol Sulfate (Ventolin Hfa Inhaler -) 2 puff IH Q4H PRN PRN Reason: SHORT OF BREATH/WHEEZING Cephalexin HCl (Keflex -) 500 mg PO BID [facility] Chlordiazepoxide HCl (Librium -) 25 mg PO Q6H PRN PRN Reason: WITHDRAWAL(CONT SUBST) Enoxaparin Sodium (Lovenox -) 40 mg SQ DAILY [facility] Folic Acid (Folic Acid -) 1 mg PO DAILY [facility] Thiamine HCl (Vitamin B1 -) 100 mg PO DAILY [facility]
[2020-01-29 12:19] VITALS: BMI 34.9
[2020-01-29] MEDS: THIAMINE HCL 100 MG TABLET (FP) PO SCH (12:27)
[2020-01-29] MEDS: ENOXAPARIN NA (PORCINE) 40 MG/0.4 ML DISP.SYRIN SQ SCH (12:32)
[2020-01-29] MEDS: CEPHALEXIN MONOHYDRATE 500 MG CAPSULE (UD) PO SCH ×3 (12:32→21:09)
[2020-01-29] MEDS: chlordiazePOXIDE HCL 25 MG CAPSULE PO PRN ×2 (12:32→19:55)
[2020-01-29] MEDS: FOLIC ACID 1 MG TABLET (FP) PO SCH (12:35)
--- NOTE | 2020-01-29 17:58 | EKG ---
Test Reason : Blood Pressure : / mmHG Vent. Rate : 116 BPM Atrial Rate : 116 BPM P-R Int : 156 ms QRS Dur : 088 ms QT Int : 340 ms P-R-T Axes : 024 -41 028 degrees QTc Int : 472 ms SINUS TACHYCARDIA LEFT AXIS DEVIATION T WAVE ABNORMALITY, CONSIDER LATERAL ISCHEMIA ABNORMAL ECG Confirmed by MD LAWRENCE, WALTER ([id number]) on 01/29/2020 5:57:48 PM Referred By: Confirmed By:WALTER BRAVO MD
[2020-01-30 08:12] LABS: BASO % 0.2 % (0-2.0); HEMATOCRIT 33.1 % (35.4-49); HEMOGLOBIN 10.3 GM/dL (11.7-16.9); LYMPH % 7.8 % (8-40); MCH 25.4 pg (25.7-33.7); MCHC 31.2 g/dl (32.0-35.9); MEAN CELL VOLUME 81.5 fl (80-96); MEAN PLT VOLUME 7.6 fl (7.5-11.1); MONO % 3.3 % (3.8-10.2); NEUT % 88.7 % (42.8-82.8); PLATELET COUNT 295 K/MM3 (134-434); RBC 4.06 M/mm3 (4.00-5.60); RDW 19.7 % (11.9-15.9); WHITE BLOOD COUNT 11.1 K/mm3 (4.0-10.0)
[2020-01-30 08:46] LABS: CALCIUM 8.6 mg/dL (8.5-10.1); CREATININE 0.6 mg/dL (0.55-1.3); MAGNESIUM 1.2 mg/dL (1.8-2.4); POTASSIUM 3.6 mmol/L (3.5-5.1)
[2020-01-30] MEDS: CEPHALEXIN MONOHYDRATE 500 MG CAPSULE (UD) PO SCH ×2 (09:28→21:38)
[2020-01-30] MEDS: FOLIC ACID 1 MG TABLET (FP) PO SCH (09:28)
[2020-01-30] MEDS: chlordiazePOXIDE HCL 25 MG CAPSULE PO PRN (09:28)
[2020-01-30] MEDS: ENOXAPARIN NA (PORCINE) 40 MG/0.4 ML DISP.SYRIN SQ SCH (09:28)
[2020-01-30] MEDS: THIAMINE HCL 100 MG TABLET (FP) PO SCH (09:28)
[2020-01-30] MEDS: chlordiazePOXIDE HCL 10 MG CAPSULE PO SCH (21:39)
--- NOTE | 2020-01-30 22:37 | PN ---
Progress Note, Physician History of Present Illness: Pt complains of lower back pain - Current Medication List Current Medications: Active Medications Albuterol Sulfate (Ventolin Hfa Inhaler -) 2 puff IH Q4H PRN PRN Reason: SHORT OF BREATH/WHEEZING Cephalexin HCl (Keflex -) 500 mg PO BID [facility] Last Admin: 01/30/20 21:38 Dose: 500 mg Documented by: Chlordiazepoxide HCl (Librium -) 10 mg PO TID [facility] Last Admin: 01/30/20 21:39 Dose: 10 mg Documented by: Enoxaparin Sodium (Lovenox -) 40 mg SQ DAILY [facility] Last Admin: 01/30/20 09:28 Dose: 40 mg Documented by: Folic Acid (Folic Acid -) 1 mg PO DAILY [facility] Last Admin: 01/30/20 09:28 Dose: 1 mg Documented by: Thiamine HCl (Vitamin B1 -) 100 mg PO DAILY [facility] Last Admin: 01/30/20 09:28 Dose: Not Given Documented by: - Objective Vital Signs: Vital Signs Temperature 98 F 01/30/20 08:37 Pulse Rate 83 01/30/20 21:17 Respiratory Rate 18 01/30/20 21:17 Blood Pressure 135/79 01/30/20 21:17 O2 Sat by Pulse Oximetry (%) 94 L 01/30/20 21:17 Cardiovascular: Yes: WNL, Regular Rate and Rhythm Respiratory: Yes: WNL, Regular, CTA Bilaterally Gastrointestinal: Yes: WNL, Normal Bowel Sounds, Soft Labs: CBC, BMP 01/30/20 07:19 01/30/20 07:19 INR, PTT INR 1.00 (0.83-1.09) 01/29/20 06:58 Problem List - Problems (1) Chronic venous stasis Assessment/Plan: Cont keflex Monitor WBC Code(s): I87.8 - OTHER SPECIFIED DISORDERS OF VEINS (2) Alcohol dependence with uncomplicated withdrawal Assessment/Plan: Decrease librium taper Cont thiamine/folic acid Code(s): F10.230 - ALCOHOL DEPENDENCE WITH WITHDRAWAL, UNCOMPLICATED (3) Shortness of breath Assessment/Plan: Check D-dimer/dopplers of lower extremity Improved w/ inhalers Code(s): R06.02 - SHORTNESS OF BREATH (4) Chronic pain Assessment/Plan: Cont to monitor Code(s): G89.29 - OTHER CHRONIC PAIN Qualifiers: Chronic pain type: other chronic pain Qualified Code(s): G89.29 - Other chronic pain (5) HTN (hypertension) Assessment/Plan: BP fluctuating May need to start antihypertensive Code(s): I10 - ESSENTIAL (PRIMARY) HYPERTENSION Qualifiers: Hypertension type: essential hypertension Qualified Code(s): I10 - Essential (primary) hypertension (6) GERD (gastroesophageal reflux disease) Code(s): K21.9 - GASTRO-ESOPHAGEAL REFLUX DISEASE WITHOUT ESOPHAGITIS Qualifiers: Esophagitis presence: without esophagitis Qualified Code(s): K21.9 - Gastro-esophageal reflux disease without esophagitis
[2020-01-31] MEDS: chlordiazePOXIDE HCL 10 MG CAPSULE PO SCH ×3 (06:20→21:24)
[2020-01-31 07:52] LABS: BASO % 0.4 % (0-2.0); EOS % 1.5 % (0-4.5); HEMATOCRIT 32.3 % (35.4-49); HEMOGLOBIN 10.2 GM/dL (11.7-16.9); LYMPH % 24.4 % (8-40); MCH 25.9 pg (25.7-33.7); MCHC 31.7 g/dl (32.0-35.9); MEAN CELL VOLUME 81.7 fl (80-96); MEAN PLT VOLUME 7.9 fl (7.5-11.1); MONO % 6.8 % (3.8-10.2); NEUT % 66.9 % (42.8-82.8); PLATELET COUNT 237 K/MM3 (134-434); RBC 3.95 M/mm3 (4.00-5.60); RDW 19.8 % (11.9-15.9); WHITE BLOOD COUNT 9.3 K/mm3 (4.0-10.0)
[2020-01-31 08:15] LABS: ALBUMIN 2.6 g/dl (3.4-5.0); BILIRUBIN,TOTAL 0.4 mg/dL (0.2-1); BLOOD UREA NITROGEN 11.8 mg/dL (7-18); CALCIUM 8.1 mg/dL (8.5-10.1); CREATININE 0.6 mg/dL (0.55-1.3); POTASSIUM 3.3 mmol/L (3.5-5.1); TOT PROT 5.6 g/dl (6.4-8.2)
[2020-01-31] MEDS: FOLIC ACID 1 MG TABLET (FP) PO SCH (09:15)
[2020-01-31] MEDS: CEPHALEXIN MONOHYDRATE 500 MG CAPSULE (UD) PO SCH ×2 (09:16→21:24)
[2020-01-31] MEDS: THIAMINE HCL 100 MG TABLET (FP) PO SCH (09:16)
[2020-01-31] MEDS: ENOXAPARIN NA (PORCINE) 40 MG/0.4 ML DISP.SYRIN SQ SCH (09:16)
--- NOTE | 2020-01-31 16:35 | PN ---
Progress Note, Physician - Current Medication List Current Medications: Active Medications Albuterol Sulfate (Ventolin Hfa Inhaler -) 2 puff IH Q4H PRN PRN Reason: SHORT OF BREATH/WHEEZING Cephalexin HCl (Keflex -) 500 mg PO BID [facility] Last Admin: 01/31/20 09:16 Dose: 500 mg Documented by: Chlordiazepoxide HCl (Librium -) 10 mg PO TID [facility] Last Admin: 01/31/20 14:34 Dose: 10 mg Documented by: Enoxaparin Sodium (Lovenox -) 40 mg SQ DAILY [facility] Last Admin: 01/31/20 09:16 Dose: Not Given Documented by: Folic Acid (Folic Acid -) 1 mg PO DAILY [facility] Last Admin: 01/31/20 09:15 Dose: Not Given Documented by: Thiamine HCl (Vitamin B1 -) 100 mg PO DAILY [facility] Last Admin: 01/31/20 09:16 Dose: Not Given Documented by: - Objective Vital Signs: Vital Signs Temperature 99.0 F 01/31/20 15:10 Pulse Rate 94 H 01/31/20 15:10 Respiratory Rate 18 01/31/20 15:10 Blood Pressure 152/110 H 01/31/20 15:10 O2 Sat by Pulse Oximetry (%) 97 01/31/20 15:10 Constitutional: Yes: No Distress HENT: Yes: Atraumatic Neck: Yes: Supple Cardiovascular: Yes: Regular Rate and Rhythm Respiratory: Yes: Rhonchi, Wheezes Gastrointestinal: Yes: Normal Bowel Sounds Extremities: Yes: WNL Edema: Yes Edema: LLE: 1+, RLE: 1+ Neurological: Yes: Alert, Oriented Labs: CBC, BMP 01/31/20 06:45 01/31/20 06:45 INR, PTT INR 1.00 (0.83-1.09) 01/29/20 06:58 Problem List - Problems (1) COPD (chronic obstructive pulmonary disease) Assessment/Plan: PRN NEBS Code(s): J44.9 - CHRONIC OBSTRUCTIVE PULMONARY DISEASE, UNSPECIFIED Qualifiers: COPD type: unspecified COPD Qualified Code(s): J44.9 - Chronic obstructive pulmonary disease, unspecified (2) Leg swelling Assessment/Plan: REFUSING ALL THE STUDIES/TEST Code(s): M79.89 - OTHER SPECIFIED SOFT TISSUE DISORDERS (3) Alcohol abuse Assessment/Plan: ON LIBRIUM Code(s): F10.10 - ALCOHOL ABUSE, UNCOMPLICATED Assessment/Plan COVERING FOR DR VELEZ TODAY
[2020-02-01] MEDS: chlordiazePOXIDE HCL 10 MG CAPSULE PO SCH ×3 (06:04→21:13)
[2020-02-01] MEDS: THIAMINE HCL 100 MG TABLET (FP) PO SCH (09:17)
[2020-02-01] MEDS: FOLIC ACID 1 MG TABLET (FP) PO SCH (09:17)
[2020-02-01] MEDS: CEPHALEXIN MONOHYDRATE 500 MG CAPSULE (UD) PO SCH ×2 (09:17→21:13)
[2020-02-01] MEDS: ENOXAPARIN NA (PORCINE) 40 MG/0.4 ML DISP.SYRIN SQ SCH (09:20)
--- NOTE | 2020-02-01 22:17 | PN ---
Progress Note, Physician History of Present Illness: Pt complains of lower back pain - Current Medication List Current Medications: Active Medications Albuterol Sulfate (Ventolin Hfa Inhaler -) 2 puff IH Q4H PRN PRN Reason: SHORT OF BREATH/WHEEZING Cephalexin HCl (Keflex -) 500 mg PO BID [facility] Last Admin: 02/01/20 21:13 Dose: 500 mg Documented by: Chlordiazepoxide HCl (Librium -) 10 mg PO TID [facility] Last Admin: 02/01/20 21:13 Dose: 10 mg Documented by: Enoxaparin Sodium (Lovenox -) 40 mg SQ DAILY [facility] Last Admin: 02/01/20 09:20 Dose: Not Given Documented by: Folic Acid (Folic Acid -) 1 mg PO DAILY [facility] Last Admin: 02/01/20 09:17 Dose: 1 mg Documented by: Thiamine HCl (Vitamin B1 -) 100 mg PO DAILY [facility] Last Admin: 02/01/20 09:17 Dose: 100 mg Documented by: - Objective Vital Signs: Vital Signs Temperature 98.2 F 02/01/20 18:00 Pulse Rate 90 02/01/20 18:00 Respiratory Rate 20 02/01/20 18:00 Blood Pressure 157/101 H 02/01/20 18:00 O2 Sat by Pulse Oximetry (%) 95 02/01/20 15:19 Cardiovascular: Yes: WNL, Regular Rate and Rhythm Respiratory: Yes: WNL, Regular, CTA Bilaterally Gastrointestinal: Yes: WNL, Normal Bowel Sounds, Soft Labs: CBC, BMP 01/31/20 06:45 01/31/20 06:45 INR, PTT INR 1.00 (0.83-1.09) 01/29/20 06:58 Problem List - Problems (1) Chronic venous stasis Assessment/Plan: Cont keflex Monitor WBC Code(s): I87.8 - OTHER SPECIFIED DISORDERS OF VEINS (2) Alcohol dependence with uncomplicated withdrawal Assessment/Plan: Decrease librium taper Cont thiamine/folic acid Check labs in am Code(s): F10.230 - ALCOHOL DEPENDENCE WITH WITHDRAWAL, UNCOMPLICATED (3) Shortness of breath Assessment/Plan: Improved w/ inhalers Code(s): R06.02 - SHORTNESS OF BREATH (4) Chronic pain Assessment/Plan: Cont to monitor Add lidocaine patch Code(s): G89.29 - OTHER CHRONIC PAIN Qualifiers: Chronic pain type: other chronic pain Qualified Code(s): G89.29 - Other chronic pain (5) HTN (hypertension) Assessment/Plan: BP fluctuating May need to start antihypertensive Code(s): I10 - ESSENTIAL (PRIMARY) HYPERTENSION Qualifiers: Hypertension type: essential hypertension Qualified Code(s): I10 - Essential (primary) hypertension (6) GERD (gastroesophageal reflux disease) Code(s): K21.9 - GASTRO-ESOPHAGEAL REFLUX DISEASE WITHOUT ESOPHAGITIS Qualifiers: Esophagitis presence: without esophagitis Qualified Code(s): K21.9 - Gastro-esophageal reflux disease without esophagitis
[2020-02-01] MEDS: LIDOCAINE PATCH REMOVAL MC SCH (22:55)
[2020-02-01] MEDS: LIDOCAINE 5% TOPICAL PATCH TP SCH (23:05)
[2020-02-02] MEDS: chlordiazePOXIDE 5 MG CAPSULE PO SCH ×3 (05:43→21:33)
[2020-02-02 07:36] LABS: BASO % 0.2 % (0-2.0); EOS % 2.6 % (0-4.5); HEMATOCRIT 30.9 % (35.4-49); HEMOGLOBIN 9.8 GM/dL (11.7-16.9); LYMPH % 15.7 % (8-40); MCH 26.1 pg (25.7-33.7); MCHC 31.8 g/dl (32.0-35.9); MEAN CELL VOLUME 81.9 fl (80-96); MEAN PLT VOLUME 7.8 fl (7.5-11.1); MONO % 7.1 % (3.8-10.2); NEUT % 74.4 % (42.8-82.8); PLATELET COUNT 195 K/MM3 (134-434); RBC 3.77 M/mm3 (4.00-5.60); RDW 20.1 % (11.9-15.9); WHITE BLOOD COUNT 9.5 K/mm3 (4.0-10.0)
[2020-02-02 08:05] LABS: POTASSIUM 3.4 mmol/L (3.5-5.1)
[2020-02-02 08:06] LABS: ALBUMIN 2.7 g/dl (3.4-5.0); CALCIUM 8.4 mg/dL (8.5-10.1)
[2020-02-02 08:08] LABS: BILIRUBIN,TOTAL 1.2 mg/dL (0.2-1); CREATININE 0.5 mg/dL (0.55-1.3); TOT PROT 5.7 g/dl (6.4-8.2)
[2020-02-02] MEDS: THIAMINE HCL 100 MG TABLET (FP) PO SCH (09:25)
[2020-02-02] MEDS: CEPHALEXIN MONOHYDRATE 500 MG CAPSULE (UD) PO SCH ×2 (09:26→21:33)
[2020-02-02] MEDS: FOLIC ACID 1 MG TABLET (FP) PO SCH (09:26)
[2020-02-02] MEDS: LIDOCAINE 5% TOPICAL PATCH TP SCH (09:35)
[2020-02-02] MEDS: ENOXAPARIN NA (PORCINE) 40 MG/0.4 ML DISP.SYRIN SQ SCH (09:37)
[2020-02-02] MEDS: LIDOCAINE PATCH REMOVAL MC SCH (21:33)
[2020-02-02] MEDS ORDERED: POTASSIUM CHLORIDE TABS 20 MEQ TABLET.ER (FP) PO ONE (22:00)
[2020-02-03 08:17] LABS: BASO % 0.3 % (0-2.0); EOS % 2.1 % (0-4.5); HEMATOCRIT 31.2 % (35.4-49); LYMPH % 13.8 % (8-40); MCH 26.4 pg (25.7-33.7); MEAN CELL VOLUME 82.5 fl (80-96); MEAN PLT VOLUME 8.1 fl (7.5-11.1); MONO % 6.9 % (3.8-10.2); NEUT % 76.9 % (42.8-82.8); PLATELET COUNT 196 K/MM3 (134-434); RBC 3.78 M/mm3 (4.00-5.60); RDW 20.3 % (11.9-15.9); WHITE BLOOD COUNT 10.1 K/mm3 (4.0-10.0)
[2020-02-03 08:39] LABS: ALBUMIN 2.9 g/dl (3.4-5.0); BILIRUBIN,TOTAL 0.7 mg/dL (0.2-1); CALCIUM 8.6 mg/dL (8.5-10.1); CREATININE 0.5 mg/dL (0.55-1.3); POTASSIUM 3.6 mmol/L (3.5-5.1)
[2020-02-03 08:46] LABS: BLOOD UREA NITROGEN 8.7 mg/dL (7-18)
[2020-02-03] MEDS: LIDOCAINE 5% TOPICAL PATCH TP SCH (10:34)
[2020-02-03] MEDS: CEPHALEXIN MONOHYDRATE 500 MG CAPSULE (UD) PO SCH (10:34)
[2020-02-03] MEDS: FOLIC ACID 1 MG TABLET (FP) PO SCH (10:34)
[2020-02-03] MEDS: ENOXAPARIN NA (PORCINE) 40 MG/0.4 ML DISP.SYRIN SQ SCH (10:35)
[2020-02-03] MEDS: THIAMINE HCL 100 MG TABLET (FP) PO SCH (10:35)
[2020-02-03 12:49] VITALS: BP 139/75; PULSE 91; TEMP 98.5
== END 2020-02-03 12:24 | disposition home or self-care (01) | DRG 140 ==
LOC: JER 20:09 → JERBED 01-29 09:56 → J6S 01-29 11:24
PROVIDERS: ADMIT Internal Medicine; ATTEND Internal Medicine
DX: J44.1 Chronic obstructive pulmonary disease with (acute) exacerbation (principal); R06.02 Shortness of breath; Z59.0 Homelessness; F10.230 Alcohol dependence with withdrawal, uncomplicated; I87.8 Other specified disorders of veins; C45.9 Mesothelioma, unspecified; I10 Essential (primary) hypertension; J44.9 Chronic obstructive pulmonary disease, unspecified; K21.9 Gastro-esophageal reflux disease without esophagitis; G89.29 Other chronic pain
CPT/HCPCS: 36415; 71045-TC-FY; 80048; 80053; 80307; 82550; 83735; 83880; 84484; 85025; 85610; 93005; 93010; 99285-25

== ENCOUNTER 2020-02-03 13:51 | Emergency (ER) | payer OTHER ==
[2020-02-03 14:10] VITALS: BMI 35.9
--- NOTE | 2020-02-03 14:20 | PDOC ---
History of Present Illness - General History Source: Patient, Old Records Exam Limitations: No Limitations - History of Present Illness Initial Comments: 02/03/20 14:19 Patients Doctor(s): PCP none History of Present Illness: 62-year-old male with past mental history of mesothelioma with long history of EtOH abuse and multiple ER visits and admission secondary to EtOH abuse is presented to the emergency department by EMS secondary to public intoxication. Patient presently states that he is experiencing pain to his lower back. Patient is not slurring his speech at this time but is unstable in gait and is intoxicated. Patient is presently able to deny chest pain, back pain, dizziness, blurred vision, nausea/vomiting, diarrhea, constipation, fever or chills. Patient denies use of any [id number] medication for the treatment of this complaint. Patient denies any sick contacts, travel outside the [place] or contact with any sick individuals who have been outside the [place]. Review of Systems: GENERAL/CONSTITUTIONAL: No fever or chills. No weakness. No weight change. HEAD, EYES, EARS, NOSE AND THROAT: No change in vision. No ear pain or discharge. No sore throat. CARDIOVASCULAR: No chest pain or shortness of breath. RESPIRATORY: No cough, wheezing, or hemoptysis. GASTROINTESTINAL: No nausea, vomiting, diarrhea or constipation. No rectal bleeding. GENITOURINARY: No dysuria, frequency, or change in urination. MUSCULOSKELETAL: No joint or muscle swelling or pain. No neck or back pain. SKIN AND BREASTS: No rash or easy bruising. NEUROLOGIC: No headache, vertigo, loss of consciousness, or loss of sensation. PSYCHIATRIC: EtOH abuse, No depression or anxiety. ENDOCRINE: No increased thirst. No abnormal weight change. HEMATOLOGIC/LYMPHATIC: No anemia, easy bleeding, or history of blood clots. ALLERGIC/IMMUNOLOGIC: No hives or skin allergy. No latex allergy. Past Medical History: Mesothelioma Family History: Mother with cancer Social History: EtOH abuse Surgical history: Denies Allergies: No known drug allergies <Umer Perla - Last Filed: 02/03/20 17:17> <Amada Alamo - Last Filed: 02/04/20 07:46> - General Chief Complaint: Alcohol intoxication Stated Complaint: BACK PAIN Time Seen by Provider: 02/03/20 14:18 Past History - Medical History Anemia: No Asthma: No Cancer: Yes (mesothelioma lung cancer) Cardiac Disorders: No CVA: No COPD: No CHF: No DVT: No Dementia: No Diabetes: No Dialysis: No GI Disorders: No Disorders: No HTN: Yes (non compliant with meds.) Hypercholesterolemia: Yes Kidney Stones: No Liver Disease: Yes (ETOH abuse) Psychiatric Problems: Yes (ETOH abuse) Seizures: No Thyroid Disease: No Lung CA: Yes (Mesothelioma) - Surgical History Abdominal Surgery: No Appendectomy: No Cardiac Surgery: No Cholecystectomy: No Lung Surgery: No Neurologic Surgery: No Orthopedic Surgery: No - Reproductive History Testicular Surgery: No - Immunization History Td Vaccination: Yes TDAP Vaccination: Yes Immunization Up to Date: Yes - Psycho-Social/Smoking History Smoking Status: No Smoking History: Never smoked Have you smoked in the past 12 months: No Number of Cigarettes Smoked Daily: 0 If you are a former smoker, when did you quit?: 0 Cigars Per Day: 0 Information on smoking cessation initiated: No 'Breaking Loose' booklet given: 09/22/17 - Substance Abuse Hx (Audit-C & DAST Scrn) How often the patient has a drink containing alcohol: 4 0r more times/wk Number of drinks the patient has on a typical day: 7 to 9 How often the patient has six or more drinks on one occasion: Daily or almost daily Score: In Men: 4 or > Positive; In Women: 3 or > Positive: 11 Screen Result (Pos requires Nsg. Audit-10AR): Positive In the last yr the pt used illegal drug/Rx for NonMed reason: No Score: Yes response is considered Positive: 0 Screen Result (Positive result requires Nsg. DAST-10): Negative <Umer Perla - Last Filed: 02/03/20 17:17> <Amada Alamo - Last Filed: 02/04/20 07:46> - Medical History Allergies/Adverse Reactions: Allergies Allergy/AdvReac Type Severity Reaction Status Date / Time Fish Containing Products Allergy Mild Swelling Verified 01/20/20 23:24 No Known Drug Allergies Allergy Verified 01/20/20 23:24 Home Medications: Ambulatory Orders Folic Acid 1 mg PO DAILY #30 tablet 02/03/20 Lidocaine 5% Patch [Lidoderm -] 1 patch TP DAILY #30 patch 02/03/20 Thiamine HCl 100 gm MC DAILY #30 powder 02/03/20 *Physical Exam - Vital Signs Last Vital Signs Temp Pulse Resp BP Pulse Ox 88 18 100/45 L 93 L 02/03/20 13:52 02/03/20 13:52 02/03/20 13:52 02/03/20 13:52 <Umer Perla - Last Filed: 02/03/20 17:17> - Vital Signs Last Vital Signs Temp Pulse Resp BP Pulse Ox 88 18 100/45 L 93 L 02/03/20 13:52 02/03/20 13:52 02/03/20 13:52 02/03/20 13:52 <Amada Alamo - Last Filed: 02/04/20 07:46> ED Treatment Course - LABORATORY CBC & Chemistry Diagram: 02/03/20 15:40 02/03/20 15:40 <Umer Perla - Last Filed: 02/03/20 17:17> - LABORATORY CBC & Chemistry Diagram: 02/03/20 15:40 02/03/20 15:40 <Amada Alamo - Last Filed: 02/04/20 07:46> Medical Decision Making - Medical Decision Making 02/03/20 14:19 A/P: Patient is a male with history of mesothelioma and EtOH abuse presented to the emergency department by EMS secondary to public intoxication. This patient is currently hypoxic with an SPO2 of 93% history of mesothelioma and COVID-19 positive I will get a chest x-ray and basic laboratory studies. 02/03/20 14:27 02/03/20 17:17 Laboratory Tests 02/03/20 02/03/20 15:40 15:40 WBC 12.7 H RBC 4.03 Hgb 10.5 L Hct 33.4 L MCV 82.9 MCH 26.1 MCHC 31.5 L RDW 20.1 H Plt Count 252 D MPV 7.9 Absolute Neuts (auto) 9.9 H Neutrophils % 77.6 Lymphocytes % 14.7 Monocytes % 5.7 Eosinophils % 1.1 Basophils % 0.9 Nucleated RBC % 0 Sodium 139 Potassium 3.8 Chloride 105 Carbon Dioxide 22 Anion Gap 12 BUN 11.0 Creatinine 0.8 Est GFR (CKD-EPI)AfAm 108.65 Est GFR (CKD-EPI)NonAf 93.74 Random Glucose 95 Calcium 9.2 Total Bilirubin 0.4 AST 47 H ALT 36 Alkaline Phosphatase 100 Total Protein 6.8 Albumin 3.4 Chest x-ray is not been performed. Upon reevaluation patient is not found in the emergency department. Thorough examination of the emergency department reveals the patient is currently not here and is most likely eloped. As there was no Hep-Lock in place no further intervention is required. <Umer Perla - Last Filed: 02/03/20 17:17> - Medical Decision Making The patient was seen and evaluated in conjunction with midlevel provider under my direct supervision, ancillary studies were reviewed. I agree with the plan as outlined with_NP Pan. HPI, workup/dispo as outlined. VS reviewed, pending labs/cxr eloped from department 02/03/20 15:51 02/04/20 07:45 <Amada Alamo - Last Filed: 02/04/20 07:46> Discharge <Umer Perla - Last Filed: 02/03/20 17:17> - Discharge Information Problems reviewed: Yes <Amada Alamo - Last Filed: 02/04/20 07:46> - Discharge Information Clinical Impression/Diagnosis: Eloped from emergency department Condition: Fair Disposition: ELOPED
[2020-02-03 16:00] LABS: BASO % 0.9 % (0-2.0); EOS % 1.1 % (0-4.5); HEMATOCRIT 33.4 % (35.4-49); HEMOGLOBIN 10.5 GM/dL (11.7-16.9); LYMPH % 14.7 % (8-40); MCH 26.1 pg (25.7-33.7); MCHC 31.5 g/dl (32.0-35.9); MEAN CELL VOLUME 82.9 fl (80-96); MEAN PLT VOLUME 7.9 fl (7.5-11.1); MONO % 5.7 % (3.8-10.2); NEUT % 77.6 % (42.8-82.8); PLATELET COUNT 252 K/MM3 (134-434); RBC 4.03 M/mm3 (4.00-5.60); RDW 20.1 % (11.9-15.9); WHITE BLOOD COUNT 12.7 K/mm3 (4.0-10.0)
[2020-02-03 16:27] VITALS: BP 98/63; PULSE 89
[2020-02-03 16:43] LABS: ALBUMIN 3.4 g/dl (3.4-5.0); BILIRUBIN,TOTAL 0.4 mg/dL (0.2-1); CALCIUM 9.2 mg/dL (8.5-10.1); CREATININE 0.8 mg/dL (0.55-1.3); POTASSIUM 3.8 mmol/L (3.5-5.1); TOT PROT 6.8 g/dl (6.4-8.2)
== END 2020-02-03 17:18 | disposition left against medical advice (07) ==
LOC: JER 13:51
DX: M54.5 Low back pain (principal)
CPT/HCPCS: 36415; 80053; 85025; 99284-25

== ENCOUNTER 2020-02-04 01:40 | Emergency (ER) | payer OTHER ==
[2020-02-04 02:11] VITALS: BP 100/62; PULSE 98; TEMP 98.3; BMI 33.0
--- NOTE | 2020-02-04 03:33 | PDOC ---
History of Present Illness - General Chief Complaint: Alcohol intoxication Stated Complaint: INTOX Time Seen by Provider: 02/04/20 03:33 History Source: Patient Exam Limitations: Intoxication - History of Present Illness Initial Comments: 02/04/20 03:35 62-year-old male with past mental history of mesothelioma, EtOH abuse presenting w etoh intoxication. Pt denies recent fall, head trauma, chest pain, SOB, n/v. Endorses needing a place to sleep Past History - Medical History Allergies/Adverse Reactions: Allergies Allergy/AdvReac Type Severity Reaction Status Date / Time Fish Containing Products Allergy Mild Swelling Verified 01/20/20 23:24 No Known Drug Allergies Allergy Verified 01/20/20 23:24 Home Medications: Ambulatory Orders Folic Acid 1 mg PO DAILY #30 tablet 02/03/20 Lidocaine 5% Patch [Lidoderm -] 1 patch TP DAILY #30 patch 02/03/20 Thiamine HCl 100 gm MC DAILY #30 powder 02/03/20 Anemia: No Asthma: No Cancer: Yes (mesothelioma lung cancer) Cardiac Disorders: No CVA: No COPD: No CHF: No DVT: No Dementia: No Diabetes: No Dialysis: No GI Disorders: No Disorders: No HTN: Yes (non compliant with meds.) Hypercholesterolemia: Yes Kidney Stones: No Liver Disease: Yes (ETOH abuse) Psychiatric Problems: Yes (ETOH abuse) Seizures: No Thyroid Disease: No Lung CA: Yes (Mesothelioma) - Surgical History Abdominal Surgery: No Appendectomy: No Cardiac Surgery: No Cholecystectomy: No Lung Surgery: No Neurologic Surgery: No Orthopedic Surgery: No - Reproductive History Testicular Surgery: No - Immunization History Td Vaccination: Yes TDAP Vaccination: Yes Immunization Up to Date: Yes - Psycho-Social/Smoking History Smoking Status: No Smoking History: Never smoked Have you smoked in the past 12 months: No Number of Cigarettes Smoked Daily: 0 If you are a former smoker, when did you quit?: 0 Cigars Per Day: 0 Information on smoking cessation initiated: No 'Breaking Loose' booklet given: 09/22/17 - Substance Abuse Hx (Audit-C & DAST Scrn) How often the patient has a drink containing alcohol: 4 0r more times/wk Number of drinks the patient has on a typical day: 5 or 6 How often the patient has six or more drinks on one occasion: Weekly Score: In Men: 4 or > Positive; In Women: 3 or > Positive: 9 Screen Result (Pos requires Nsg. Audit-10AR): Positive In the last yr the pt used illegal drug/Rx for NonMed reason: No Score: Yes response is considered Positive: 0 Screen Result (Positive result requires Nsg. DAST-10): Negative Review of Systems - Review of Systems Able to Perform ROS?: No (intoxicated) *Physical Exam - Vital Signs Last Vital Signs Temp Pulse Resp BP Pulse Ox 98.3 F 98 H 18 100/62 97 02/04/20 02:09 02/04/20 02:09 02/04/20 02:09 02/04/20 02:09 02/04/20 02:09 - Physical Exam General Appearance: Yes: Nourished, Appropriately Dressed. No: Apparent Distre ss HEENT: positive: EOMI, DOUGLAS, Hearing Grossly Normal, Other (atraumatic face). negative: Normal Voice (slurred), Scleral Icterus (R), Scleral Icterus (L) Respiratory/Chest: positive: Lungs Clear, Normal Breath Sounds. negative: Chest Tender, Respiratory Distress Cardiovascular: positive: Regular Rhythm, Regular Rate, S1, S2. negative: Murmur Gastrointestinal/Abdominal: positive: Normal Bowel Sounds, Flat, Soft. negative: Tender, Organomegaly Integumentary: positive: Normal Color, Warm Neurologic: positive: Alert, Normal Response, Responsive. negative: Confused, Disoriented Medical Decision Making - Medical Decision Making 02/04/20 04:15 62-year-old male with past mental history of mesothelioma, EtOH abuse presenting w etoh intoxication. Vitals stable, nonconcerning exam Therapeutic sleep DC home when clinically sober Discharge - Discharge Information Problems reviewed: Yes Clinical Impression/Diagnosis: Alcohol intoxication Qualifiers: Complication of substance-induced condition: uncomplicated Qualified Code(s): F10.920 - Alcohol use, unspecified with intoxication, uncomplicated Condition: Improved Disposition: HOME - Follow up/Referral - Patient Discharge Instructions - Post Discharge Activity
--- NOTE | 2020-02-04 03:48 | PDOC ---
Attending Attestation - Resident Resident Name: PeterBob - ED Attending Attestation I have performed the following: I have examined & evaluated the patient, The case was reviewed & discussed with the resident, I agree w/resident's findings & plan - HPI HPI: 02/04/20 20:31 Pt brought by EMS because he was intoxicated in a public location Pt well known to us No new complaints Pt is here to sleep and sober up. - Physicial Exam PE: 02/04/20 20:31 agree with resident exam - Medical Decision Making 02/04/20 20:31 Pt rested all night and was sent out in the AM. Stable for d/c home Discharge - Discharge Information Problems reviewed: Yes Clinical Impression/Diagnosis: Alcohol intoxication Qualifiers: Complication of substance-induced condition: uncomplicated Qualified Code(s): F10.920 - Alcohol use, unspecified with intoxication, uncomplicated Condition: Improved Disposition: HOME - Follow up/Referral - Patient Discharge Instructions - Post Discharge Activity
== END 2020-02-04 07:02 | disposition home or self-care (01) ==
LOC: JER 01:40
DX: F10.920 Alcohol use, unspecified with intoxication, uncomplicated (principal)
CPT/HCPCS: 99281-25

== ENCOUNTER 2020-02-11 09:27 | Emergency (ER) | payer OTHER ==
[2020-02-11 09:36] VITALS: BP 133/82; PULSE 94; TEMP 97.5; BMI 33.7
--- NOTE | 2020-02-11 10:29 | PDOC ---
History of Present Illness - General Chief Complaint: Back Pain Stated Complaint: INTOX/BACK PAIN Time Seen by Provider: 02/11/20 09:41 - History of Present Illness Initial Comments: [facility] Pt is a 65yo M with PMH chronic back pain, alcohol dependence, chronic venous stasis/cellulitis, multiple ED visits who presents for detox/rehab request and back pain. States that his back pack is unchanged from his previous. Denies any urinary or bowel incontinence, has been able to ambulate, denies numbness/paresthesias of b/l lower extremities. Requests librium, states that last drink was yesterday 7pm, 1 "drink" of vodka. Review of Systems CONSTITUTIONAL:denies fever, chills, generalized weakness, malaise HEENT:denies rhinorrhea, nasal congestion, sore throat CARDIOVASCULAR:denies chest pain, syncope, palpitations, lightheadedness RESPIRATORY:denies cough, shortness of breath GASTROINTESTINAL: denies abdominal pain, nausea, vomiting, diarrhea, constipation, melena, hematochezia GENITOURINARY:denies dysuria, frequency, hematuria MUSCULOSKELETAL:reports back pain HEMATOLOGIC/IMMUNOLOGIC:denies easy bleeding, easy bruising ENDOCRINE: denies unexplained weight gain, unexplained weight loss NEUROLOGIC:denies headache, loss of consciousness, mental status changes, bladder or bowel incontinence SKIN:denies rash, itching, pallor Physical Exam General: awake, alert, fully oriented, in no acute distress, well developed, well nourished, resting comfortably in bed Head: normocephalic, atraumatic Eyes: PERRL, EOMI, anicteric sclera, conjunctiva clear ENT: Auricles normal inspection, hearing grossly normal, oropharynx clear without exudates, no nasal congestion, moist mucous membranes Neck: supple, normal ROM Lung: equal breath sounds b/l, CTA b/l, no crackles, wheezes; no distress, speaks full sentences Heart: RRR, normal S1, S2, no murmurs appreciated Abdomen: soft, non tender, normoactive bowel sounds, no guarding, rebound, masses Extremities: no edema, no erythema or tenderness, DP/PT pulses 2+ and symmetric Neuro: CN2-12 grossly intact, moves all extremities, normal speech, sensation intact, no tremors, no tongue fasciculations, Skin: warm, dry [facility] Pt is a 65yo M with PMH chronic back pain, alcohol dependence, chronic venous stasis/cellulitis, multiple ED visits who presents for detox/rehab request and back pain. DDx including but not limited to: alcohol withdrawal, low back pain Tx: lidoderm patch for low back pain Pt requests transfer for [facility] for detox Patient stable for discharge. Patient expressed understanding and agree to plan Disposition: Discharge to [facility] Past History - Medical History Allergies/Adverse Reactions: Allergies Allergy/AdvReac Type Severity Reaction Status Date / Time Fish Containing Products Allergy Mild Swelling Verified 01/20/20 23:24 No Known Drug Allergies Allergy Verified 01/20/20 23:24 Home Medications: Ambulatory Orders Folic Acid 1 mg PO DAILY #30 tablet 02/03/20 Lidocaine 5% Patch [Lidoderm -] 1 patch TP DAILY #30 patch 02/03/20 Thiamine HCl 100 gm MC DAILY #30 powder 02/03/20 Anemia: No Asthma: No Cancer: Yes (mesothelioma lung cancer) Cardiac Disorders: No CVA: No COPD: No CHF: No DVT: No Dementia: No Diabetes: No Dialysis: No GI Disorders: No Disorders: No HTN: Yes (non compliant with meds.) Hypercholesterolemia: Yes Kidney Stones: No Liver Disease: Yes (ETOH abuse) Psychiatric Problems: Yes (ETOH abuse) Seizures: No Thyroid Disease: No Lung CA: Yes (Mesothelioma) - Surgical History Abdominal Surgery: No Appendectomy: No Cardiac Surgery: No Cholecystectomy: No Lung Surgery: No Neurologic Surgery: No Orthopedic Surgery: No - Reproductive History Testicular Surgery: No - Immunization History Td Vaccination: Yes TDAP Vaccination: Yes Immunization Up to Date: Yes - Psycho-Social/Smoking History Smoking Status: No Smoking History: Never smoked Have you smoked in the past 12 months: No Number of Cigarettes Smoked Daily: 0 If you are a former smoker, when did you quit?: 0 Cigars Per Day: 0 'Breaking Loose' booklet given: 09/22/17 - Substance Abuse Hx (Audit-C & DAST Scrn) How often the patient has a drink containing alcohol: 4 0r more times/wk Number of drinks the patient has on a typical day: 10 or more How often the patient has six or more drinks on one occasion: Daily or almost daily Score: In Men: 4 or > Positive; In Women: 3 or > Positive: 12 Screen Result (Pos requires Nsg. Audit-10AR): Positive In the last yr the pt used illegal drug/Rx for NonMed reason: No Score: Yes response is considered Positive: 0 Screen Result (Positive result requires Nsg. DAST-10): Negative *Physical Exam - Vital Signs Last Vital Signs Temp Pulse Resp BP Pulse Ox 97.5 F L 94 H 20 133/82 100 02/11/20 09:33 02/11/20 09:33 02/11/20 09:33 02/11/20 09:33 02/11/20 09:33 Discharge - Discharge Information Problems reviewed: Yes Clinical Impression/Diagnosis: Alcohol abuse Back pain Qualifiers: Back pain location: low back pain Chronicity: chronic Back pain laterality: midline Sciatica presence: unspecified whether sciatica present Qualified C ode(s): M54.5 - Low back pain - Admission No - Follow up/Referral Referrals: Lily Cornejo [Primary Care Provider] - - Patient Discharge Instructions Patient Printed Discharge Instructions: DI for Alcohol Abuse Additional Instructions: You came into the ER detox. In the ED, you did not appear to be in alcohol withdrawal, you requested transfer to [facility]. You do not appear to be an acute need for immediate hospitalization. Come back to the ER immediately with any new or worsening concerns. Thank you for coming to the [facility] ER. We hope you feel better soon! - Post Discharge Activity
[2020-02-11] MEDS ORDERED: LIDOCAINE 5% TOPICAL PATCH TP ONE (10:31)
[2020-02-11] MEDS ORDERED: LIDOCAINE 5% TOPICAL PATCH ONE (10:33)
--- NOTE | 2020-02-11 10:35 | PDOC ---
Documentation entered by Mat Shaw SCRIBE, acting as scribe for Monica Suh MD. Monica Suh MD: This documentation has been prepared by the Colin pereira Xhesika, SCRIBE, under my direction and personally reviewed by me in its entirety. I confirm that the documentation accurately reflects all work, treatment, procedures, and medical decision making performed by me. Attending Attestation - Resident Resident Name: Nadiya Payton - ED Attending Attestation I have performed the following: I have examined & evaluated the patient, The case was reviewed & discussed with the resident, I agree w/resident's findings & plan, Exceptions are as noted - HPI HPI: 02/11/20 09:49 The patient is a 65y/o M with a hx of EtOH abuse, HTN, mesothelioma, chronic back pain, and previously diagnosed COVID 19 c/o chronic back pain and R hip soreness who presents to the ED BIBA for back pain. Pt endorses daily alcohol abuse. Pt is requesting detox. no other current complaints. very well known to myself and department as pt has near daily visits at times. Allergies: NKDA. Fish containing products. 02/11/20 10:32 - Physicial Exam PE: 02/11/20 10:33 Patient is awake alert disheveled lungs are clear bilaterally heart is regular by murmurs rubs or gallops abdomen is obese but nontender extremities are warm and well-perfused he has paraspinal lumbosacral tenderness no midline spinal tenderness he is ambulating without difficulty - Medical Decision Making 02/11/20 10:34 65-year-old male known history of alcohol abuse with near daily visits to the ED multiple other medical problems chronic back pain here today complaining of back pain requesting detox patient is clinically sober at this time is offered [facility] for detox given a Lidoderm for his back pain. Is neurologically intact and ambulating will get security to transfer patient for detox for his alcohol abuse. Discharge - Discharge Information Problems reviewed: Yes Clinical Impression/Diagnosis: Back pain, Alcohol abuse - Follow up/Referral Referrals: Lily Cornejo [Primary Care Provider] - - Patient Discharge Instructions Patient Printed Discharge Instructions: DI for Alcohol Abuse Additional Instructions: You came into the ER detox. In the ED, you did not appear to be in alcohol withdrawal, you requested transfer to [facility]. You do not appear to be an ac tone need for immediate hospitalization. Come back to the ER immediately with any new or worsening concerns. Thank you for coming to the [facility] ER. We hope you feel better soon! - Post Discharge Activity
[2020-02-11] MEDS ORDERED: LIDOCAINE PATCH REMOVAL MC SCH (22:00)
== END 2020-02-11 11:00 ==
LOC: JER 09:27
DX: M54.5 Low back pain (principal); F10.10 Alcohol abuse, uncomplicated
CPT/HCPCS: 99283-25

== ENCOUNTER 2020-02-11 11:27 | Inpatient (IN) | payer OTHER ==
--- NOTE | 2020-02-11 13:12 | BHS.RME ---
Substance Use & Tx History - Substance Use History Alcohol Substance amount: 1pint of vodka Frequency of use: Daily Substance route: Oral Date of Last Use: 02/10/20 - Last Treatment Date of last treatment: [facility] 11/2019 Where was last treatment: Detox Physical/Psych/Mental Status - Behavior Eye Contact: Normal - Cooperativeness Cooperativeness: Cooperative - Thinking Thought Processes: Logical Thought content: Future oriented - Physical Health Problems Is patient presently having any pain?: No Does patient presently have any injuries (include location): No Does patient currently have a fever: No CIWA Nausea/Vomitin Muscle Tremors: 3 Anxiety: 3 Agitation: 3 Paroxysmal Sweats: 1-Minimal Palms Moist Orientation: 0-Oriented Tacttile Disturbances: 1-Very Mild Itch/Numbness Auditory Disturbances: 0-None Visual Disturbances: 0-None Headache: 2-Mild CIWA-Ar Total Score: 15
--- NOTE | 2020-02-11 13:22 | HP ---
CIWA Score Nausea/Vomitin Muscle Tremors: 3 Anxiety: 3 Agitation: 3 Paroxysmal Sweats: 1-Minimal Palms Moist Orientation: 0-Oriented Tacttile Disturbances: 1-Very Mild Itch/Numbness Auditory Disturbances: 0-None Visual Disturbances: 0-None Headache: 2-Mild CIWA-Ar Total Score: 15 - Admission Criteria [facility]ASAS Guidelines: Admission for Medically Managed Detox: Requires at least one of the followin. CIWA greater than 12 2. Seizures within the past 24 hours 3. Delirium tremens within the past 24 hours 4. Hallucinations within the past 24 hours 5. Acute intervention needed for co occurring medical disorder 6. Acute intervention needed for co occurring psychiatric disorder 7. Severe withdrawal that cannot be handled at a lower level of care (continued vomiting, continued diarrhea, abnormal vital signs) requiring intravenous medication and/or fluids 8. Admitting History and Physical - Admission Chief Complaint: i need help to stop drining alcohol History of Present Illness: this 65 years old male with alcohol dependence,seeking help to stop,seen at [facility] er 02/10/20 medically clear to come in for detox History Source: Patient (homeless,unemployed,no legal issue) - Past Medical History Cardiovascular: Yes: HTN, Hyperlipdemia Pulmonary: Yes: Cancer (Mesothelioma), Other (asbestosis) Gastrointestinal: Yes: GERD Psych: Yes: Addictions (EtOH) Musculoskeletal: Yes: Chronic low back pain, Other (joint pain) - Past Surgical History Past Surgical History: Yes: None, Colonoscopy (pt may have had - not sure). 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 History of Recent Travel: No Admission ROS S - HPI Chief Complaint: i need help to stop drinking alcohol Allergies/Adverse Reactions: Allergies Allergy/AdvReac Type Severity Reaction Status Date / Time Fish Containing Products Allergy Mild Swelling Verified 01/20/20 23:24 No Known Drug Allergies Allergy Verified 01/20/20 23:24 History of Present Illness: this 65 years old male with alcohol dependence seeking help,seen in [facility] er on 02/10/20,medically clear to come to [facility] for detox frequent visits to er at [facility] noncompliance hypertension, denied seizure syncope longest sobriety 6 years homeless,unemployed,no legal issue encourage to go to rehab after detox history of exposure to asbestosis Exam Limitations: No Limitations - Ebola screening Have you traveled outside of the country in the last 21 days: No Have you had contact with anyone from an Ebola affected area: No Have you been sick,other than usual withdrawal symptoms: No Do you have a fever: No - Review of Systems Constitutional: Loss of Appetite, Night Sweats, Weakness, Unintentional Wgt. Loss EENT: reports: Nose Congestion Respiratory: reports: No Symptoms reported Cardiac: reports: No Symptoms Reported GI: reports: Nausea, Poor Appetite, Abdominal cramping : reports: No Symptoms Reported Musculoskeletal: reports: Back Pain, Muscle Pain Integumentary: reports: Dryness Neuro: reports: Tremors Endocrine: reports: No Symptoms Reported Hematology: reports: No Symptoms Reported Psychiatric: reports: No Sypmtoms Reported Other Systems: Reviewed and Negative Patient History - Patient Medical History Hx Anemia: No Hx Asthma: No Hx Chronic Obstructive Pulmonary Disease (COPD): No Hx Cancer: Yes (mesothelioma lung cancer) Hx Cardiac Disorders: No Hx Congestive Heart Failure: No Hx Hypertension: Yes (non compliant with meds.) Hx Hypercholesterolemia: Yes Hx Pacemaker: No HX Cerebrovascular Accident: No Hx Seizures: No Hx Dementia: No Hx Diabetes: No Hx Gastrointestinal Disorders: No Hx Liver Disease: Yes (ETOH abuse) Hx Genitourinary Disorders: No Hx Sexually Transmitted Disorders: No Hx Renal Disease (ESRD): No Hx Thyroid Disease: No Hx Human Immunodeficiency Virus (HIV): No (last 2019 negative) Hx Hepatitis C: No Hx Depression: No Hx Suicide Attempt: No Hx Bipolar Disorder: No Hx Schizophrenia: No Other Medical History: no suicidal,no homicidal - Patient Surgical History Past Surgical History: No Hx Neurologic Surgery: No Hx Cataract Extraction: No Hx Cardiac Surgery: No Hx Lung Surgery: No Hx Breast Surgery: No Hx Breast Biopsy: No Hx Abdominal Surgery: No Hx Appendectomy: No Hx Cholecystectomy: No Hx Genitourinary Surgery: No Hx Section: No Hx Orthopedic Surgery: No Hx Hysterectomy: No Anesthesia Reaction: No - PPD History Previous Implant?: Yes Documented Results: Negative w/proof Implanted On Prior [facility] Admission?: Yes Date: 08/05/19 Results: 0 mm PPD to be Administered?: No - Smoking Cessation Smoking history: Never smoked Have you smoked in the past 12 months: No Aproximately how many cigarettes per day: 0 If you are a former smoker, when did you quit?: 0 Cigars Per Day: 0 Hx Chewing Tobacco Use: No - Substance & Tx. History Hx Alcohol Use: Yes Hx Substance Use: No Substance Use Type: Alcohol Hx Substance Use Treatment: Yes ([facility] 11/2019) - Substances abused Alcohol Substance route: Oral Frequency: Daily Amount used: 1 pint of vodka Age of first use: 16 Date of last use: 02/10/20 Admission Physical Exam [facility] - Vital Signs Vital Signs: t07.7,p106,r18,bp 130/91,josselin 0.00,pulse ox 99% - Physical General Appearance: Yes: Moderate Distress, Tremorous, Irritable, Sweating, Anxious HEENTM: Yes: Normal ENT Inspection, DOUGLAS, Pharynx Normal Respiratory: Yes: Lungs Clear, Normal Breath Sounds, No Respiratory Distress Neck: Yes: Within Normal Limits, Supple, Trachea in good position Breast: Yes: Within Normal Limits Cardiology: Yes: Tachycardia Abdominal: Yes: Within Normal Limits, Normal Bowel Sounds, Non Tender, Soft Genitourinary: Yes: Within Normal Limits Back: Yes: Muscle Spasm Musculoskeletal: Yes: Back pain, Muscle Pain Extremities: Yes: Within Normal Limits, Normal Range of Motion, Tremors Neurological: Yes: 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, Fully Oriented, Alert, Motor Strength 5/5 Integumentary: Yes: Dry Lymphatic: Yes: Within Normal Limits - Diagnostic (1) Alcohol dependence with uncomplicated withdrawal Current Visit: No Status: Acute (2) Hypertension Current Visit: Yes Status: Acute (3) Syncope Current Visit: Yes Status: Acute (4) Abrasion Current Visit: Yes Status: Acute Cleared for Admission S - Detox or Rehab [facility] Level of Care: Medically Managed Detox Regimen/Protocol: Librium Breathalyzer - Breathalyzer Breathalyzer: 0 Urine Drug Screen - Test Device Lot number: [id number] Expiration date: 08/12/20 - Control Is test valid?: Yes - Results Drug screen NEGATIVE: No Urine drug screen results: BZO-Benzodiazepines Inpatient Rehab Admission - Rehab Decision to Admit Inpatient rehab admission?: No
[2020-02-11] MEDS ORDERED: MENTHOL/PHENOL 1 EACH UD MM PRN (13:53)
[2020-02-11] MEDS ORDERED: MAGNESIUM CITRATE 300 ML BOTTLE PO PRN (13:53)
[2020-02-11] MEDS ORDERED: MAGNESIUM HYDROX 2400MG/30ML ORAL SUSPENSION 30 ML CUP PO PRN (13:53)
[2020-02-11] MEDS ORDERED: ONDANSETRON *ODT* 4 MG TABLET SL ONE (13:53)
[2020-02-11] MEDS ORDERED: IBUPROFEN 400 MG TABLET (FP) PO PRN (13:53)
[2020-02-11] MEDS ORDERED: ACETAMINOPHEN 325 MG TABLET (FP) PO PRN ×2 (13:53)
[2020-02-11] MEDS ORDERED: MAG HYDROX/AL HYDROX/SIMETH 30 ML UNIT-DOSE CUP PO PRN (13:53)
[2020-02-11] MEDS ORDERED: BISMUTH SUBSALICYLATE 524 MG/30 ML UD PO PRN (13:53)
[2020-02-11] MEDS ORDERED: chlordiazePOXIDE HCL 25 MG CAPSULE PO PRN (13:53)
[2020-02-11 14:34] VITALS: BMI 33.3
[2020-02-11] MEDS: METHOCARBAMOL 500 MG TABLET PO PRN (15:46)
[2020-02-11] MEDS: BACITRACIN 15 GM TUBE TOPICAL OINTMENT TP SCH ×2 (15:51→22:38)
[2020-02-11] MEDS: hydrOXYzine PAMOATE 25 MG CAPSULE (FP) PO SCH ×3 (15:51→22:31)
[2020-02-11] MEDS: chlordiazePOXIDE HCL 25 MG CAPSULE PO SCH ×2 (18:05→22:32)
[2020-02-11] MEDS: THIAMINE HCL 100 MG TABLET (FP) PO SCH (22:31)
[2020-02-11] MEDS: MELATONIN 5 MG TABLETS PO SCH (22:33)
[2020-02-11] MEDS: CLINDAMYCIN PHOSPHATE 1% TOPICAL GEL 30 GM TUBE TP SCH (22:38)
[2020-02-12] MEDS: chlordiazePOXIDE HCL 25 MG CAPSULE PO SCH ×4 (06:25→22:47)
[2020-02-12] MEDS: hydrOXYzine PAMOATE 25 MG CAPSULE (FP) PO SCH ×5 (06:26→22:46)
[2020-02-12 10:15] LABS: ALBUMIN 2.8 g/dl (3.4-5.0); BILIRUBIN,TOTAL 0.8 mg/dL (0.2-1); BLOOD UREA NITROGEN 11.1 mg/dL (7-18); CALCIUM 8.4 mg/dL (8.5-10.1); CREATININE 0.7 mg/dL (0.55-1.3); HEMATOCRIT 30.7 % (35.4-49); HEMOGLOBIN 9.6 GM/dL (11.7-16.9); MCH 25.9 pg (25.7-33.7); MCHC 31.3 g/dl (32.0-35.9); MEAN CELL VOLUME 82.7 fl (80-96); MEAN PLT VOLUME 8.1 fl (7.5-11.1); PLATELET COUNT 197 K/MM3 (134-434); POTASSIUM 3.3 mmol/L (3.5-5.1); RBC 3.71 M/mm3 (4.00-5.60); RDW 20.1 % (11.9-15.9); TOT PROT 5.7 g/dl (6.4-8.2); WHITE BLOOD COUNT 8.6 K/mm3 (4.0-10.0)
[2020-02-12] MEDS: PRENATAL VITAMINS W/ FOLIC ACID TABLET (FP) PO SCH (11:05)
[2020-02-12] MEDS: CLINDAMYCIN PHOSPHATE 1% TOPICAL GEL 30 GM TUBE TP SCH ×2 (11:08→22:46)
[2020-02-12] MEDS: BACITRACIN 15 GM TUBE TOPICAL OINTMENT TP SCH ×2 (11:09→22:45)
--- NOTE | 2020-02-12 14:02 | PN ---
[facility] CIWA - CIWA Score Nausea/Vomitin-Mild Nausea/No Vomiting Muscle Tremors: 2 Anxiety: 3 Agitation: 2 Paroxysmal Sweats: 2 Orientation: 0-Oriented Tacttile Disturbances: 1-Very Mild Itch/Numbness Auditory Disturbances: 0-None Visual Disturbances: 0-None Headache: 1-Very Mild CIWA-Ar Total Score: 12 [facility] Progress Note (SOAP) Subjective: Tremor, headache, knee pain, interrupted sleep; patient is agitated, stated he has been sleeping on the street; when asked why not stay at the [facility]?, patient replied, "it's worse, I rather be in [facility]." Objective: 02/12/20 13:59 Last Vital Signs Temp Pulse Resp BP Pulse Ox 98.4 F 105 H 16 130/84 95 02/12/20 08:44 02/12/20 08:44 02/12/20 08:44 02/12/20 08:44 02/11/20 20:40 Elevated b/p: has htn, not on medication Mild tachycardia: most likely due to anxiety/agitation Laboratory Tests 02/12/20 02/12/20 02/12/20 07:34 07:34 07:34 WBC 8.6 RBC 3.71 L Hgb 9.6 L Hct 30.7 L MCV 82.7 MCH 25.9 MCHC 31.3 L RDW 20.1 H Plt Count 197 D MPV 8.1 Sodium 141 Potassium 3.3 L Chloride 104 Carbon Dioxide 31 Anion Gap 6 L BUN 11.1 Creatinine 0.7 Est GFR (CKD-EPI)AfAm 114.78 Est GFR (CKD-EPI)NonAf 99.03 Random Glucose 96 Calcium 8.4 L Total Bilirubin 0.8 AST 22 ALT 19 Alkaline Phosphatase 109 Total Protein 5.7 L Albumin 2.8 L Syphilis Serology Non-reactive Labs reviewed: anemia noted, K 3.3 (low), albumin 2.8 (low), total protein 5.7 (low) Assessment: 02/12/20 14:04 Withdrawal sxs Noted with htn, anemia, hypokalemia, malnutrition Plan: Continue detox Encourage PO water intake HTN: start norvasc 5mg PO daily, monitor b/p Anemia: send iron studies and start PO iron supplement if warranted Hypokalemia: start K Dur 40 Meq tablet PO x 2 doses (give at least 4 hours apart), repeat serum K level in AM Malnutrition: encourage diet
[2020-02-12] MEDS ORDERED: POTASSIUM CHLORIDE TABS 20 MEQ TABLET.ER (FP) PO ONE ×2 (15:00→21:00)
[2020-02-12] MEDS: amLODIPine BESYLATE 5 MG TABLET (FP) PO SCH (15:35)
[2020-02-12] MEDS ORDERED: ASPIRIN 81 MG CHEWABLE TABLETS PO ONE (21:47)
--- NOTE | 2020-02-12 22:41 | PN ---
Char Progress Note Note: Patient is complaining of chest pain. He was seen and evaluated in room. He reports ''this is not new because I have always complained about this pain everyday since this admission and I have cancer too" Vital Signs Temperature 98.2 F 02/12/20 20:49 Pulse Rate 99 H 02/12/20 20:49 Respiratory Rate 16 02/12/20 20:49 Blood Pressure 151/93 02/12/20 20:49 O2 Sat by Pulse Oximetry (%) 96 02/12/20 20:49 Laboratory Last Values Action: EKG stat Aspirin 81mg tablet oral
[2020-02-12] MEDS: THIAMINE HCL 100 MG TABLET (FP) PO SCH (22:46)
[2020-02-12] MEDS: MELATONIN 5 MG TABLETS PO SCH (22:46)
[2020-02-13] MEDS: chlordiazePOXIDE HCL 25 MG CAPSULE PO SCH ×4 (08:29→22:48)
[2020-02-13] MEDS: hydrOXYzine PAMOATE 25 MG CAPSULE (FP) PO SCH ×5 (08:29→22:47)
[2020-02-13] MEDS: PRENATAL VITAMINS W/ FOLIC ACID TABLET (FP) PO SCH (10:58)
[2020-02-13] MEDS: BACITRACIN 15 GM TUBE TOPICAL OINTMENT TP SCH ×2 (10:58→22:53)
[2020-02-13] MEDS: CLINDAMYCIN PHOSPHATE 1% TOPICAL GEL 30 GM TUBE TP SCH ×2 (10:58→22:53)
[2020-02-13] MEDS: amLODIPine BESYLATE 5 MG TABLET (FP) PO SCH (10:58)
[2020-02-13] MEDS: METHOCARBAMOL 500 MG TABLET PO PRN (11:04)
[2020-02-13 13:16] LABS: POTASSIUM 3.4 mmol/L (3.5-5.1)
--- NOTE | 2020-02-13 13:39 | PN ---
[facility] CI[facility] - CIWA Score Nausea/Vomitin-Mild Nausea/No Vomiting Muscle Tremors: 3 Anxiety: 3 Agitation: 3 Paroxysmal Sweats: No Perspiration Orientation: 0-Oriented Tacttile Disturbances: 1-Very Mild Itch/Numbness Auditory Disturbances: 0-None Visual Disturbances: 0-None Headache: 2-Mild CIWA-Ar Total Score: 13 S Progress Note (SOAP) Subjective: alert,anxious,interrupted sleep,low back pain,aching pain body and back Objective: 02/13/20 13:35 Vital Signs Temperature 97.0 F L 02/13/20 12:55 Pulse Rate 79 02/13/20 12:55 Respiratory Rate 18 02/13/20 12:55 Blood Pressure 112/67 02/13/20 12:55 O2 Sat by Pulse Oximetry (%) 95 02/13/20 05:47 Laboratory Last Values WBC 8.6 K/mm3 (4.0-10.0) 02/12/20 07:34 RBC 3.71 M/mm3 (4.00-5.60) L 02/12/20 07:34 Hgb 9.6 GM/dL (11.7-16.9) L 02/12/20 07:34 Hct 30.7 % (35.4-49) L 02/12/20 07:34 MCV 82.7 fl (80-96) 02/12/20 07:34 MCH 25.9 pg (25.7-33.7) 02/12/20 07:34 MCHC 31.3 g/dl (32.0-35.9) L 02/12/20 07:34 RDW 20.1 % (11.9-15.9) H 02/12/20 07:34 Plt Count 197 K/MM3 (134-434) D 02/12/20 07:34 MPV 8.1 fl (7.5-11.1) 02/12/20 07:34 Sodium 141 mmol/L (136-145) 02/12/20 07:34 Potassium 3.4 mmol/L (3.5-5.1) L 02/13/20 07:55 Chloride 104 mmol/L (98-107) 02/12/20 07:34 Carbon Dioxide 31 mmol/L (21-32) 02/12/20 07:34 Anion Gap 6 MMOL/L (8-16) L 02/12/20 07:34 BUN 11.1 mg/dL (7-18) 02/12/20 07:34 Creatinine 0.7 mg/dL (0.55-1.3) 02/12/20 07:34 Est GFR (CKD-EPI)AfAm 114.78 02/12/20 07:34 Est GFR (CKD-EPI)NonAf 99.03 02/12/20 07:34 Random Glucose 96 mg/dL (74-106) 02/12/20 07:34 Calcium 8.4 mg/dL (8.5-10.1) L 02/12/20 07:34 Iron 14 ug/dL (50-175) L 02/13/20 07:55 TIBC 355 ug/dL (250-450) 02/13/20 07:55 Iron Saturation 3 % (17.5-39) L 02/13/20 07:55 Unsaturated IBC 341 ug/dL (200-275) H 02/13/20 07:55 Ferritin 21.0 ng/ml (8-388) 02/13/20 07:55 Total Bilirubin 0.8 mg/dL (0.2-1) 02/12/20 07:34 AST 22 U/L (15-37) 02/12/20 07:34 ALT 19 U/L (13-61) 02/12/20 07:34 Alkaline Phosphatase 109 U/L (45-117) 02/12/20 07:34 Total Protein 5.7 g/dl (6.4-8.2) L 02/12/20 07:34 Albumin 2.8 g/dl (3.4-5.0) L 02/12/20 07:34 Vitamin B12 162 pg/ml (193-986) L 02/13/20 07:55 Serum Folate 7 ng/mL (3.1-17.5) 02/13/20 07:55 Syphilis Serology Non-reactive (NONREACTIVE) 02/12/20 07:34 COVID-19 ([facility]) Not detected (Not Detected) 02/11/20 14:59 02/13/20 13:36 iron deficiency anemia,hypokalemia Assessment: 02/13/20 13:37 withdrawal symptom Plan: continue detox librium regimen,ferrous sulfate 325 mgs po bid,k dur 20 meq po daily for 3 days,encourage plenty of fluid, close monitoring
[2020-02-13] MEDS: FERROUS SO4 325 MG TABLET (FP) PO SCH ×2 (14:13→22:53)
[2020-02-13] MEDS: POTASSIUM CHLORIDE TABS 20 MEQ TABLET.ER (FP) PO SCH (14:21)
--- NOTE | 2020-02-13 17:50 | EKG ---
Test Reason : Blood Pressure : / mmHG Vent. Rate : 088 BPM Atrial Rate : 088 BPM P-R Int : 148 ms QRS Dur : 088 ms QT Int : 390 ms P-R-T Axes : 034 -32 024 degrees QTc Int : 471 ms NORMAL SINUS RHYTHM LEFT AXIS DEVIATION ANTERIOR INFARCT (CITED ON OR BEFORE 12-FEB-2020) ABNORMAL ECG WHEN COMPARED WITH ECG OF 12-FEB-2020 21:46, VENT. RATE HAS DECREASED Confirmed by KY OVIEDO MD ([id number]) on 02/13/2020 5:49:33 PM Referred By: Confirmed By:KY OVIEDO MD
[2020-02-13] MEDS: MELATONIN 5 MG TABLETS PO SCH (22:53)
[2020-02-13] MEDS: THIAMINE HCL 100 MG TABLET (FP) PO SCH (22:54)
[2020-02-14] MEDS ORDERED: chlordiazePOXIDE HCL 10 MG CAPSULE PO PRN
[2020-02-14] MEDS: hydrOXYzine PAMOATE 25 MG CAPSULE (FP) PO SCH ×5 (06:43→22:34)
[2020-02-14] MEDS: chlordiazePOXIDE HCL 10 MG CAPSULE PO SCH ×4 (06:43→22:32)
--- NOTE | 2020-02-14 09:44 | PN ---
S CIWA - CIWA Score Nausea/Vomitin-Mild Nausea/No Vomiting Muscle Tremors: 2 Anxiety: 2 Agitation: 2 Paroxysmal Sweats: 1-Minimal Palms Moist Orientation: 0-Oriented Tacttile Disturbances: 1-Very Mild Itch/Numbness Auditory Disturbances: 0-None Visual Disturbances: 0-None Headache: 2-Mild CIWA-Ar Total Score: 11 S Progress Note (SOAP) Subjective: alert,irritable,anxious,interrupted sleep,aching pain in the body and back Objective: 02/14/20 09:42 Vital Signs Temperature 98.2 F 02/14/20 08:33 Pulse Rate 107 H 02/14/20 08:33 Respiratory Rate 18 02/14/20 08:33 Blood Pressure 147/80 02/14/20 08:33 O2 Sat by Pulse Oximetry (%) 96 02/14/20 08:33 Assessment: 02/14/20 09:42 withdrawal symptom Plan: continue detox librium regimen,patient refused potassium replacement
[2020-02-14] MEDS: amLODIPine BESYLATE 5 MG TABLET (FP) PO SCH (10:06)
[2020-02-14] MEDS: FERROUS SO4 325 MG TABLET (FP) PO SCH ×2 (10:06→22:32)
[2020-02-14] MEDS: CLINDAMYCIN PHOSPHATE 1% TOPICAL GEL 30 GM TUBE TP SCH ×2 (10:06→22:33)
[2020-02-14] MEDS: POTASSIUM CHLORIDE TABS 20 MEQ TABLET.ER (FP) PO SCH (10:06)
[2020-02-14] MEDS: BACITRACIN 15 GM TUBE TOPICAL OINTMENT TP SCH ×2 (10:07→22:33)
[2020-02-14] MEDS: PRENATAL VITAMINS W/ FOLIC ACID TABLET (FP) PO SCH (10:07)
[2020-02-14] MEDS: THIAMINE HCL 100 MG TABLET (FP) PO SCH (22:32)
[2020-02-14] MEDS: MELATONIN 5 MG TABLETS PO SCH (22:33)
[2020-02-15] MEDS: chlordiazePOXIDE HCL 10 MG CAPSULE PO SCH ×2 (06:49→18:04)
[2020-02-15] MEDS: hydrOXYzine PAMOATE 25 MG CAPSULE (FP) PO SCH ×5 (06:49→22:02)
[2020-02-15] MEDS: POTASSIUM CHLORIDE TABS 20 MEQ TABLET.ER (FP) PO SCH (10:31)
[2020-02-15] MEDS: FERROUS SO4 325 MG TABLET (FP) PO SCH ×2 (10:31→22:02)
[2020-02-15] MEDS: amLODIPine BESYLATE 5 MG TABLET (FP) PO SCH (10:31)
[2020-02-15] MEDS: BACITRACIN 15 GM TUBE TOPICAL OINTMENT TP SCH ×2 (10:32→22:01)
[2020-02-15] MEDS: PRENATAL VITAMINS W/ FOLIC ACID TABLET (FP) PO SCH (10:32)
[2020-02-15] MEDS: CLINDAMYCIN PHOSPHATE 1% TOPICAL GEL 30 GM TUBE TP SCH ×2 (10:32→22:01)
--- NOTE | 2020-02-15 11:20 | PN ---
S CIWA - CIWA Score Nausea/Vomitin-Mild Nausea/No Vomiting Muscle Tremors: 2 Anxiety: 2 Agitation: 1-Slight > Activity Paroxysmal Sweats: No Perspiration Orientation: 0-Oriented Tacttile Disturbances: 1-Very Mild Itch/Numbness Auditory Disturbances: 0-None Visual Disturbances: 0-None Headache: 1-Very Mild CIWA-Ar Total Score: 8 BHS Progress Note (SOAP) Subjective: alert,irritable,anxious,interrupted sleep,aching pain in the body Objective: 02/15/20 11:21 Vital Signs Temperature 98.6 F 02/15/20 09:17 Pulse Rate 89 02/15/20 09:17 Respiratory Rate 20 02/15/20 09:17 Blood Pressure 106/64 02/15/20 09:17 O2 Sat by Pulse Oximetry (%) 98 02/15/20 09:17 Assessment: 02/15/20 11:22 withdrawal symptom Plan: continue detox librium regimen,discharge in am
[2020-02-15] MEDS: THIAMINE HCL 100 MG TABLET (FP) PO SCH (22:02)
[2020-02-15] MEDS: MELATONIN 5 MG TABLETS PO SCH (22:03)
[2020-02-16] MEDS ORDERED: chlordiazePOXIDE HCL 10 MG CAPSULE PO ONE (05:00)
[2020-02-16] MEDS: hydrOXYzine PAMOATE 25 MG CAPSULE (FP) PO SCH ×2 (06:38→10:15)
[2020-02-16 09:57] VITALS: BP 126/78; PULSE 104; TEMP 98.2
[2020-02-16] MEDS: amLODIPine BESYLATE 5 MG TABLET (FP) PO SCH (10:15)
[2020-02-16] MEDS: FERROUS SO4 325 MG TABLET (FP) PO SCH (10:15)
[2020-02-16] MEDS: CLINDAMYCIN PHOSPHATE 1% TOPICAL GEL 30 GM TUBE TP SCH (10:15)
[2020-02-16] MEDS: PRENATAL VITAMINS W/ FOLIC ACID TABLET (FP) PO SCH (10:15)
[2020-02-16] MEDS: BACITRACIN 15 GM TUBE TOPICAL OINTMENT TP SCH (10:15)
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
== END 2020-02-16 10:10 | disposition home or self-care (01) | DRG 775 ==
LOC: YASAS 11:27 → Y6N 14:29
PROVIDERS: ADMIT Allergy & Immunology; ATTEND Allergy & Immunology
PROC: HZ2ZZZZ Detoxification Services for Substance Abuse Treatment (ICD-10-PCS; principal; 2020-02-11)
DX: F10.230 Alcohol dependence with withdrawal, uncomplicated (principal); D50.9 Iron deficiency anemia, unspecified; E72.20 Disorder of urea cycle metabolism, unspecified; E46 Unspecified protein-calorie malnutrition; Z68.33 Body mass index [BMI] 33.0-33.9, adult; E87.6 Hypokalemia; I10 Essential (primary) hypertension; M54.5 Low back pain; G89.29 Other chronic pain; Z85.89 Personal history of malignant neoplasm of other organs and systems; J44.9 Chronic obstructive pulmonary disease, unspecified; R07.9 Chest pain, unspecified; Z56.0 Unemployment, unspecified; Z59.0 Homelessness; Z91.013 Allergy to seafood; T14.8XXA Other injury of unspecified body region, initial encounter; X58.XXXA Exposure to other specified factors, initial encounter; Y93.89 Activity, other specified; Y92.89 Other specified places as the place of occurrence of the external cause; Y99.8 Other external cause status
CPT/HCPCS: 36415; 80053; 82607; 82728; 82746; 83540; 83550; 84132; 85027; 86780; 93005; 93010; Q0162; U0003

== ENCOUNTER 2020-02-29 23:26 | Emergency (ER) | payer OTHER ==
[2020-02-29 23:46] VITALS: BP 120/74; PULSE 100; TEMP 98.6; BMI 35.9
--- NOTE | 2020-03-01 01:37 | PDOC ---
History of Present Illness - General Chief Complaint: Alcohol intoxication Stated Complaint: INTOXICATED Time Seen by Provider: 03/01/20 01:36 History Source: Patient Exam Limitations: Intoxication - History of Present Illness Initial Comments: 03/01/20 01:41 65y M with PMH of alcohol dependence presenting to ER via EMS for intoxication. Pt is endorsing chronic back pain but is declining medications at this time stating he wants to be left alone to sleep. Denies abdominal pain, n/v/d, headaches, fever, chills. Denies drinking today however per EMS, pt was intoxicated. Denies falls, worsening back pain, numbness/tingling, difficulty walking, saddle anesthesia, injury, incontinence. Of note pt was recently at [facility] for detox and discharged on 02/16/2020. 03/01/20 01:59 Past History - Medical History Allergies/Adverse Reactions: Allergies Allergy/AdvReac Type Severity Reaction Status Date / Time Fish Containing Products Allergy Mild Swelling Verified 02/29/20 23:40 No Known Drug Allergies Allergy Verified 02/29/20 23:40 Home Medications: Ambulatory Orders Folic Acid 1 mg PO DAILY #30 tablet 02/03/20 Lidocaine 5% Patch [Lidoderm -] 1 patch TP DAILY #30 patch 02/03/20 Thiamine HCl 100 gm MC DAILY #30 powder 02/03/20 Anemia: No Asthma: No Cancer: Yes (mesothelioma lung cancer) Cardiac Disorders: No CVA: No COPD: No CHF: No DVT: No Dementia: No Diabetes: No Dialysis: No GI Disorders: No Disorders: No HTN: Yes (non compliant with meds.) Hypercholesterolemia: Yes Kidney Stones: No Liver Disease: Yes (ETOH abuse) Psychiatric Problems: Yes (ETOH abuse) Seizures: No Thyroid Disease: No Lung CA: Yes (Mesothelioma) - Surgical History Abdominal Surgery: No Appendectomy: No Cardiac Surgery: No Cholecystectomy: No Lung Surgery: No Neurologic Surgery: No Orthopedic Surgery: No - Reproductive History Testicular Surgery: No - Immunization History Td Vaccination: Yes TDAP Vaccination: Yes Immunization Up to Date: Yes - Psycho-Social/Smoking History Smoking Status: No Smoking History: Current some day smoker Have you smoked in the past 12 months: Yes Number of Cigarettes Smoked Daily: 5 If you are a former smoker, when did you quit?: 0 Cigars Per Day: 0 Information on smoking cessation initiated: No 'Breaking Loose' booklet given: 09/22/17 - Substance Abuse Hx (Audit-C & DAST Scrn) How often the patient has a drink containing alcohol: 4 0r more times/wk Number of drinks the patient has on a typical day: 5 or 6 How often the patient has six or more drinks on one occasion: Daily or almost daily Score: In Men: 4 or > Positive; In Women: 3 or > Positive: 10 Screen Result (Pos requires Nsg. Audit-10AR): Positive In the last yr the pt used illegal drug/Rx for NonMed reason: No Score: Yes response is considered Positive: 0 Screen Result (Positive result requires Nsg. DAST-10): Negative Review of Systems - Review of Systems Constitutional: Yes: Other (intoxicated) HEENTM: No: Symptoms Reported Respiratory: No: Symptoms reported Cardiac (ROS): No: Symptoms Reported ABD/GI: No: Symptoms Reported : No: Symptoms Reported Musculoskeletal: Yes: Back Pain Integumentary: No: Symptoms Reported Neurological: No: Symptoms reported *Physical Exam - Vital Signs Last Vital Signs Temp Pulse Resp BP Pulse Ox 98.6 F 100 H 20 120/74 98 02/29/20 23:36 02/29/20 23:36 02/29/20 23:36 02/29/20 23:36 02/29/20 23:36 - Physical Exam General Appearance: Yes: Nourished, Appropriately Dressed, Intoxicated, Other (sleeping in stretcher) HEENT: positive: EOMI, DOUGLAS. negative: Normal ENT Inspection, Scleral Icterus (R), Scleral Icterus (L) Neck: positive: Supple Respiratory/Chest: positive: Lungs Clear, Normal Breath Sounds. negative: Crackles, Rales, Rhonchi, Stridor, Wheezing Cardiovascular: positive: Regular Rhythm, Regular Rate, S1, S2. negative: Edema, JVD, Murmur Vascular Pulses: Dorsalis-Pedis (R): 2+, Doralis-Pedis (L): 2+ Gastrointestinal/Abdominal: positive: Normal Bowel Sounds, Soft. negative: Tender Musculoskeletal: negative: CVA Tenderness Extremity: positive: Normal Capillary Refill. negative: Calf Tenderness Integumentary: positive: Normal Color, Dry, Warm. negative: Rash, Swelling Neurologic: positive: welfare interviewer II-XII NML intact, Fully Oriented, Normal Response, Other (intoxicated) Medical Decision Making - Medical Decision Making 03/01/20 01:44 65y M well known to department, history of alcohol dependence presenting to ER for intoxication and back pain. back pain is chronic, pt states this pain is no different from prior pain, no numbness/tingling. declining medications and states he wants to be left alone. does not require further labs or imaging at this time. -MTF. will dc when sober. return precautions provided. 03/01/20 05:46 Discharge - Discharge Information Problems reviewed: Yes Clinical Impression/Diagnosis: Intoxication Chronic back pain Qualifiers: Back pain location: low back pain Back pain laterality: unspecified Sciatica presence: without sciatica Qualified Code(s): M54.5 - Low back pain Condition: Good Disposition: HOME - Admission No - Follow up/Referral - Patient Discharge Instructions Patient Printed Discharge Instructions: DI for Alcohol Use Disorder Additional Instructions: If you are interest in detox, you can go to [address] You can take Tylenol for the pain as needed. Please make an appointment with your doctor. Come back to the ER for worsening pain, difficulty walking, if you fall or if any new or concerning symptom develops. Thank you - Post Discharge Activity
--- NOTE | 2020-03-01 02:11 | PDOC ---
Attending Attestation - Resident Resident Name: Elizabeth West - ED Attending Attestation I have performed the following: The case was reviewed & discussed with the resident, I agree w/resident's findings & plan, Exceptions are as noted - HPI HPI: 03/01/20 02:07 65 yo M very well known to this ED, h/o etoh abuse p/w etoh intox. Denies any falls or trauma. Complaining of mild back pain which is chronic and unchanged. Otherwise no medical complaints. Patient requesting to be left alone to sleep. - Physicial Exam PE: 03/01/20 02:08 General: non-toxic appearing, +AOB HEENT: NCAT Chest: CTAB, good air entry CVS: + s1 s2, RRR Neuro: asleep but arousable, responds appropriately to questions, no focal deficits - Medical Decision Making 03/01/20 02:09 65 yo M here with etoh intox, no acute medical complaints, no evidence of trauma on exam no report of falls or trauma, no indication for additional workup at this time. Plan: -will monitor in ED x~3 hours and if patient remains at baseline will d/c with return precautions, recommend PMD f/u as needed This clinical encounter is taking place during a federal and state health care emergency attributable to the novel Forrester Virus pandemic. The [place] of the Department of Health and Human Services has declared, pursuant to the Public Health Service Act 319F-3 (42 U.S.C. 247d-6d), that a covered persons activities related to medical countermeasures against COVID-19 will be immune from liability under Federal and State law. Discharge - Discharge Information Problems reviewed: Yes Clinical Impression/Diagnosis: Intoxication Chronic back pain Qualifiers: Back pain location: low back pain Back pain laterality: unspecified Sciatica presence: without sciatica Qualified Code(s): M54.5 - Low back pain Condition: Good Disposition: HOME - Follow up/Referral - Patient Discharge Instructions Patient Printed Discharge Instructions: DI for Alcohol Use Disorder Additional Instructions: If you are interest in detox, you can go to [address] You can take Tylenol for the pain as needed. Thank you - Post Discharge Activity
== END 2020-03-01 06:39 | disposition home or self-care (01) ==
LOC: JER 23:26
DX: F19.920 Other psychoactive substance use, unspecified with intoxication, uncomplicated (principal); M54.5 Low back pain
CPT/HCPCS: 99284-25

== ENCOUNTER 2020-03-02 12:54 | Emergency (ER) | payer OTHER ==
[2020-03-02 13:07] VITALS: BP 106/72; PULSE 79; TEMP 97.7; BMI 35.9
--- NOTE | 2020-03-02 13:43 | PDOC ---
History of Present Illness - General Chief Complaint: Alcohol intoxication Stated Complaint: INTOX Time Seen by Provider: 03/02/20 13:12 History Source: Patient Exam Limitations: Clinical Condition - History of Present Illness Initial Comments: 03/02/20 13:38 Patient with past medical history of alcohol abuse with recurrent ED visit for alcohol intoxication brought in by ambulance with complaint of right knee pain status post fall on right knee while intoxicated yesterday. Patient reported only have some mild pain to suprapatellar aspect of right knee. Patient reports feeling fine and requesting food. Denies hitting head or any other pain. Patient talking in full sentences in no acute distress. Is this a multiple visit Asthma Patient?: No Past History - Medical History Allergies/Adverse Reactions: Allergies Allergy/AdvReac Type Severity Reaction Status Date / Time Fish Containing Products Allergy Mild Swelling Verified 02/29/20 23:40 No Known Drug Allergies Allergy Verified 02/29/20 23:40 Home Medications: Ambulatory Orders Folic Acid 1 mg PO DAILY #30 tablet 02/03/20 Lidocaine 5% Patch [Lidoderm -] 1 patch TP DAILY #30 patch 02/03/20 Thiamine HCl 100 gm MC DAILY #30 powder 02/03/20 Anemia: No Asthma: No Cancer: Yes (mesothelioma lung cancer) Cardiac Disorders: No CVA: No COPD: No CHF: No DVT: No Dementia: No Diabetes: No Dialysis: No GI Disorders: No Disorders: No HTN: Yes (non compliant with meds.) Hypercholesterolemia: Yes Kidney Stones: No Liver Disease: Yes (ETOH abuse) Psychiatric Problems: Yes (ETOH abuse) Seizures: No Thyroid Disease: No Lung CA: Yes (Mesothelioma) - Surgical History Abdominal Surgery: No Appendectomy: No Cardiac Surgery: No Cholecystectomy: No Lung Surgery: No Neurologic Surgery: No Orthopedic Surgery: No - Reproductive History Testicular Surgery: No - Immunization History Td Vaccination: Yes TDAP Vaccination: Yes Immunization Up to Date: Yes - Psycho-Social/Smoking History Smoking Status: No Smoking History: Never smoked Have you smoked in the past 12 months: No Number of Cigarettes Smoked Daily: 0 If you are a former smoker, when did you quit?: 0 Cigars Per Day: 0 Information on smoking cessation initiated: No 'Breaking Loose' booklet given: 09/22/17 - Substance Abuse Hx (Audit-C & DAST Scrn) How often the patient has a drink containing alcohol: Never Score: In Men: 4 or > Positive; In Women: 3 or > Positive: 0 Screen Result (Pos requires Nsg. Audit-10AR): Negative In the last yr the pt used illegal drug/Rx for NonMed reason: No Score: Yes response is considered Positive: 0 Screen Result (Positive result requires Nsg. DAST-10): Negative Review of Systems - Review of Systems Able to Perform ROS?: Yes Is the patient limited Lao proficient: No Constitutional: No: Chills, Fever, Malaise HEENTM: No: Symptoms Reported, See HPI, Eye Pain, Blurred Vision, Tearing, Recent change in vision, Double Vision, Cataracts, Ear Pain, Ocular Prothesis, Ear Discharge, Nose Pain, Nose Congestion, Tinnitus, Nose Bleeding, Hearing Loss, Throat Pain, Throat Swelling, Mouth Pain, Dental Problems, Difficulty S wallowing, Mouth Swelling, Other Respiratory: No: Symptoms reported, See HPI, Cough, Orthopnea, Shortness of Breath, SOB with Exertion, SOB at Rest, Stridor, Wheezing, Productive cough, Hemoptysis, Other Cardiac (ROS): No: Symptoms Reported, See HPI, Chest Pain, Edema, Irregular Heart Rate, Lightheadedness, Palpitations, Syncope, Chest Tightness, Other ABD/GI: No: Symptoms Reported, Vomiting Musculoskeletal: Yes: Symptoms Reported, See HPI, Joint Pain (right knee pain) Integumentary: No: Symptoms Reported All Other Systems: Reviewed and Negative *Physical Exam - Vital Signs Last Vital Signs Temp Pulse Resp BP Pulse Ox 97.7 F 79 16 106/72 98 03/02/20 13:02 03/02/20 13:02 03/02/20 13:02 03/02/20 13:02 03/02/20 13:02 - Physical Exam 03/02/20 13:41 GENERAL: Well developed, well nourished. Awake and alert. No acute distress. Talking in full sentences and given history CARDIOVASCULAR: Regular rate and rhythm. No murmurs, rubs, or gallops. PULMONARY: No evidence of respiratory distress. Lungs clear to auscultation bilaterally. No wheezing, rales or rhonchi. MUSCULOSKELETAL : mild tenderness over suprapatellar aspect of right knee. No tenderness to left knee. No tenderness to right lower extremity or left lower extremity. No visible injury to knee or lower extremities. Patient moving lower extremities freely. No bony deformities EXTREMITIES: No cyanosis. No clubbing. No edema. No calf tenderness. SKIN: Warm and dry. Normal capillary refill. Bruising no open wounds to bilateral lower extremities NEUROLOGICAL: Alert, awake, appropriate. No motor deficits in the lower extremities. Gait is normal without ataxia. No fasciculations or essential tremors. PSYCHIATRIC: Cooperative. Good eye contact. Appropriate mood and affect. General Appearance: Yes: Nourished, Appropriately Dressed. No: Apparent Distress Medical Decision Making - Medical Decision Making 03/02/20 13:39 Patient with past medical history of alcohol abuse with recurrent ED visit for alcohol intoxication brought in by ambulance with complaint of right knee pain status post fall on right knee while intoxicated yesterday. Patient reported only have some mild pain to suprapatellar aspect of right knee. Patient reports feeling fine and requesting food. Denies hitting head or any other pain. Patient talking in full sentences in no acute distress. Exam significant for patient intoxicated and reporting subjective mild tenderness to right suprapatellar region. Patient moving bilateral knees and leg and reported feeling fine and declines imaging of right knee. Patient requesting food as he is hungry. Patient in no acute distress. Patient offered food. Patient in bed and will be sleeping of after eating for alcohol intoxication. No evidence of alcohol withdrawal. No essential tremors or fasciculation. 03/02/20 14:19 Patient requesting discharge and requesting [employer] to be discharged as he feels better after eating. Patient stable for discharge and walking with normal gait Discharge - Discharge Information Problems reviewed: Yes Clinical Impression/Diagnosis: Intoxication, Alcohol abuse Fall Qualifiers: Encounter type: initial encounter Qualified Code(s): W19.XXXA - Unspecified fall, initial encounter Condition: Stable Disposition: HOME - Admission No - Follow up/Referral - Patient Discharge Instructions Patient Printed Discharge Instructions: DI for Alcohol Use Disorder - Post Discharge Activity
== END 2020-03-02 14:45 | disposition home or self-care (01) ==
LOC: JER 12:54
DX: F10.920 Alcohol use, unspecified with intoxication, uncomplicated (principal); W19.XXXA Unspecified fall, initial encounter
CPT/HCPCS: 99283-25

== ENCOUNTER 2020-03-04 15:52 | Emergency (ER) | payer OTHER ==
[2020-03-04 15:57] VITALS: BP 115/73; PULSE 94; TEMP 98.3; BMI 35.9
[2020-03-04] MEDS ORDERED: ACETAMINOPHEN 325 MG TABLET (FP) PO ONE (16:47)
[2020-03-04] MEDS ORDERED: METHOCARBAMOL 500 MG TABLET PO ONE (16:47)
[2020-03-04] MEDS ORDERED: ACETAMINOPHEN 325 MG TABLET (FP) ONE (16:51)
[2020-03-04] MEDS ORDERED: METHOCARBAMOL 500 MG TABLET ONE (16:51)
--- NOTE | 2020-03-04 16:53 | PDOC ---
History of Present Illness - General Chief Complaint: Alcohol intoxication Stated Complaint: Alcohol intoxication History Source: Patient Exam Limitations: No Limitations - History of Present Illness Initial Comments: 03/04/20 16:48 Patient is a 65-year-old male with history of EtOH abuse, mesothelioma, DVT, chronic back pain brought in for intoxication now complaints of back pain. Patient states pain is in the right upper back from the scapula all the way down to mid back, sharp 8/10 worse with movement. He is requesting Robaxin for his pain. PMHX: As above PSOCHX: etoh abuse, neg cig, neg drug ALL: NKDA GENERAL/CONSTITUTIONAL: [No fever or chills. No weakness. No weight change.] HEAD, EYES, EARS, NOSE AND THROAT: [No change in vision. No ear pain or discharge. No sore throat.] CARDIOVASCULAR: [No chest pain or shortness of breath.] RESPIRATORY: [No cough, wheezing, or hemoptysis.] GASTROINTESTINAL: [No nausea, vomiting, diarrhea or constipation. No rectal bleeding.] GENITOURINARY: [No dysuria, frequency, or change in urination.] MUSCULOSKELETAL: [(+) joint or muscle swelling or pain. No neck (+) back pain.] SKIN AND BREASTS: [No rash or easy bruising.] NEUROLOGIC: [No headache, vertigo, loss of consciousness, or loss of sensation.] PSYCHIATRIC: [No depression or anxiety.] ENDOCRINE: [No increased thirst. No abnormal weight change.] HEMATOLOGIC/LYMPHATIC: [No anemia, easy bleeding, or history of blood clots.] ALLERGIC/IMMUNOLOGIC: [No hives or skin allergy. No latex allergy.] GENERAL: [The patient is awake, alert, and fully oriented, in no acute distress, does not appear intoxicated] HEAD: [Normal with no signs of trauma.] EYES: [Pupils equal, round and reactive to light, extraocular movements intact, sclera anicteric, conjunctiva clear.] ENT: [Ears normal, nares patent, oropharynx clear without exudates. Moist mucous membranes.] NECK: [Normal range of motion, supple without lymphadenopathy, JVD, or masses.] LUNGS: [Breath sounds equal, clear to auscultation bilaterally. No wheezes, and no crackles.] HEART: [Regular rate and rhythm, normal S1 and S2 without murmur, rub.] ABDOMEN: [Soft, nontender, normoactive bowel sounds. No guarding, no rebound. No masses.] EXTREMITIES: [decreased range of motion upper ext due to pain, no edema. No clubbing or cyanosis. No cords, erythema, or tenderness.] NEUROLOGICAL: [Cranial nerves II through XII grossly intact. Alert and oriented x3, normal speech, normal gait.] PSYCH: [Normal mood, normal affect.] SKIN: [Warm, Dry, normal turgor, no rashes or lesions noted.] Past History - Medical History Allergies/Adverse Reactions: Allergies Allergy/AdvReac Type Severity Reaction Status Date / Time Fish Containing Products Allergy Mild Swelling Verified 03/03/20 03:27 No Known Drug Allergies Allergy Verified 03/03/20 03:27 Home Medications: Ambulatory Orders Folic Acid 1 mg PO DAILY #30 tablet 02/03/20 Lidocaine 5% Patch [Lidoderm -] 1 patch TP DAILY #30 patch 02/03/20 Thiamine HCl 100 gm MC DAILY #30 powder 02/03/20 Anemia: No Asthma: No Cancer: Yes (mesothelioma lung cancer) Cardiac Disorders: No CVA: No COPD: No CHF: No DVT: No Dementia: No Diabetes: No Dialysis: No GI Disorders: No Disorders: No HTN: Yes (non compliant with meds.) Hypercholesterolemia: Yes Kidney Stones: No Liver Disease: Yes (ETOH abuse) Psychiatric Problems: Yes (ETOH abuse) Seizures: No Thyroid Disease: No Lung CA: Yes (Mesothelioma) - Surgical History Abdominal Surgery: No Appendectomy: No Cardiac Surgery: No Cholecystectomy: No Lung Surgery: No Neurologic Surgery: No Orthopedic Surgery: No - Reproductive History Testicular Surgery: No - Immunization History Td Vaccination: Yes TDAP Vaccination: Yes Immunization Up to Date: Yes - Psycho-Social/Smoking History Smoking Status: No Smoking History: Former smoker Have you smoked in the past 12 months: No Number of Cigarettes Smoked Daily: 0 If you are a former smoker, when did you quit?: 0 Cigars Per Day: 0 Information on smoking cessation initiated: Yes 'Breaking Loose' booklet given: 09/22/17 - Substance Abuse Hx (Audit-C & DAST Scrn) How often the patient has a drink containing alcohol: 4 0r more times/wk Number of drinks the patient has on a typical day: 10 or more How often the patient has six or more drinks on one occasion: Daily or almost daily Score: In Men: 4 or > Positive; In Women: 3 or > Positive: 12 Screen Result (Pos requires Nsg. Audit-10AR): Positive *Physical Exam - Vital Signs Last Vital Signs Temp Pulse Resp BP Pulse Ox 98.3 F 94 H 20 115/73 95 03/04/20 15:55 03/04/20 15:55 03/04/20 15:55 03/04/20 15:55 03/04/20 15:55 Medical Decision Making - Medical Decision Making 03/04/20 16:48 Patient is a 65-year-old male with history of EtOH abuse, mesothelioma, DVT, chronic back pain brought in for intoxication now complaints of back pain. Patient states pain is in the right upper back from the scapula all the way down to mid back, sharp 8/10 worse with movement. He is requesting Robaxin for his pain. Patient with chronic back pain will give Robaxin and Tylenol 03/04/20 17:38 Patient feels improved and is requesting to be discharged. I discussed the physical exam findings, ancillary test results and final diagnoses with the patient. I answered all of the patient's questions. The patient was satisfied with the care received and felt comfortable with the discharge plan and treatment plan. The Patient agrees to follow up with the primary care physician within 24-72 hours. Discharge - Discharge Information Problems reviewed: Yes Clinical Impression/Diagnosis: Chronic back pain Qualifiers: Back pain location: back pain in other location Qualified Code(s): M54.9 - Dorsalgia, unspecified Condition: Stable Disposition: HOME - Follow up/Referral - Patient Discharge Instructions Patient Printed Discharge Instructions: DI for Thoracic Back Pain Additional Instructions: Your Discharge Instructions: You must call primary care physician within 24 hours to arrange follow-up. Return to the Emergency Department with any new, persistent or worsening symptoms, for fever, chills, SOB, dizziness or any other concerning changes that may occur. - Post Discharge Activity
--- OUTSIDE RECORDS SUMMARY | 2020-03-04 17:03 | XMS ---
:1955 Author Organization [facility] Care Team Providers Name Role Phone MARIA C IBARRA Unavailable Unavailable ED STAFF PHYSICIAN, JOSE Unavailable Unavailable [facility], [id number] Unavailable Unavailable ED STAFF PHYSICIAN Unavailable Unavailable LANOIX, YAN Unavailable Unavailable WYATT SANG Unavailable Unavailable ED STAFF PHYSICIANAGUILAR Unavailable Unavailable ED STAFF PHYSICIAN Unavailable Unavailable ED STAFF PHYSICIAN Unavailable Unavailable LEONEL MEDINA Unavailable Unavailable ED STAFF PHYSICIAN Unavailable Unavailable ED STAFF PHYSICIAN Unavailable Unavailable ED STAFF PHYSICIAN, FRANCISCA Unavailable Unavailable TYUET HASSAN Unavailable Unavailable [facility], [id number] Unavailable Unavailable ER, MD Unavailable Unavailable ED STAFF PHYSICIAN, STAFF Unavailable Unavailable RACHEL WOODS Unavailable Unavailable ED STAFF PHYSICIAN, LITZY Unavailable Unavailable AYANA RESENDEZ MD Unavailable Unavailable ED STAFF PHYSICIAN Unavailable Unavailable Alona Agrawal MD Unavailable Unavailable Alona Agrawal MD Unavailable Unavailable Alona Agrawal MD Unavailable Unavailable Alona Agrawal MD Unavailable Unavailable Alona Agrawal MD Unavailable Unavailable Alona Agrawal MD Unavailable Unavailable Alona Agrawal MD Unavailable Unavailable ED STAFF PHYSICIAN Unavailable Unavailable FAVIO MONROY Unavailable Unavailable ED STAFF PHYSICIAN Unavailable Unavailable LAURIE Unavailable Unavailable LAURIE Unavailable Unavailable LAURIE Unavailable Unavailable LAURIE Unavailable Unavailable LAURIE Unavailable Unavailable MD NADER Unavailable Unavailable EMERGENCY SERVICE, X Unavailable Unavailable ZUNASSIGNED Unavailable Unavailable ED STAFF PHYSICIAN Unavailable Unavailable Re-disclosure Warning The records that you are about to access may contain information from federally- assisted alcohol or drug abuse programs. If such information is present, then the following federally mandated warning applies: This information has been disclosed to you from records protected by federal confidentiality rules (42 CFR part 2). The federal rules prohibit you from making any further disclosure of this information unless further disclosure is expressly permitted by the written consent of the person to whom it pertains or as otherwise permitted by 42 CFR part 2. A general authorization for the release of medical or other information is NOT sufficient for this purpose. The Federal rules restrict any use of the information to criminally investigate or prosecute any alcohol or drug abuse patient.The records that you are about to access may contain highly sensitive health information, the redisclosure of which is protected by Article 27-F of the [facility] Public Health law. If you continue you may haveaccess to information: Regarding HIV / AIDS; Provided by facilities licensed or operated by the [facility] Office of Mental Health; or Provided by the [facility] Office for People With Developmental Disabilities. If such information is present, then the following [facility] mandated warning applies: This information has been disclosed to you from confidential records which are protected by state law. State law prohibits you from making any further disclosure of this information without the specific written consent of the person to whom it pertains, or as otherwise permitted by law. Any unauthorized further disclosure in violation of state law may result in a fine or intermediate sentence or both. A general authorization for the release of medical or other information is NOT sufficient authorization for further disclosure. Allergies and Adverse Reactions Type Description Substance Reaction Status Data Source(s ) Drug allergy No Known Drug No Known Drug [facility] [employer] [facility] Drug allergy No Known Allergies No Known [facility] [employer] [facility] Food allergy No Known Food No Known Food [facility] [employer] [facility] Encounters Encounter Providers Location Date Indications Data Source(s ) Emergency Attender: ED STAFF H 03/03/2020 [facility] PHYSICIANAttender: 07:52:00 PM EDT [facility] STAFF ED STAFF - 03/04/2020 PHYSICIANAdmitter: 06:50:00 AM EDT ED STAFF PHYSICIANReferrer: STAFF ED STAFF PHYSICIAN Patient discharged. Emergency Attender: JOSE ED STAFF H 03/01/2020 12:31:00 PM [facility] PHYSICIANAttender: STAFF ED EDT - 03/01/2020 [facility] STAFF PHYSICIANAdmitter: 11:42:00 PM EDT [place] ED STAFF PHYSICIANReferrer: ZUNASSIGNED Patient discharged. Emergency Attender: ED STAFF 02/29/2020 12:29:00 PM [facility] PHYSICIANAttender: STAFF ED EDT - 02/29/2020 [facility] STAFF PHYSICIANAdmitter: ED 06:19:00 PM EDT STAFF PHYSICIANReferrer: ZUNASSIGNED Patient discharged. Emergency Attender: LITZY ED STAFF 02/28/2020 08:42:00 PM [facility] PHYSICIANAttender: STAFF ED EDT - 02/29/2020 [facility] STAFF PHYSICIANAdmitter: LITZY 05:27:00 AM EDT ED STAFF PHYSICIANReferrer: ZUNASSIGNED Patient discharged. Emergency Attender: JOSE ED STAFF 02/28/2020 11:14:00 AM [facility] PHYSICIANAttender: STAFF ED EDT - 02/28/2020 [facility] STAFF PHYSICIANAdmitter: 07:32:00 PM EDT [place] ED STAFF PHYSICIANReferrer: ZUNASSIGNED Patient discharged. Emergency Attender: ED STAFF 02/27/2020 08:25:00 PM [facility] PHYSICIANAttender: STAFF ED EDT - 02/28/2020 [facility] STAFF PHYSICIANAdmitter: ED 07:04:00 AM EDT STAFF PHYSICIANReferrer: ZUNASSIGNED Patient discharged. Inpatient Attender: LEWIS SALEH1D [facility] EDT - [address] [place] [address] 10:27:00 PM EDT Patient discharged. Outpatient [facility] 02/16/2020 10:53:00 AM EDT - [address] [place] [address] 01:59:00 PM EDT Patient discharged. Emergency Attender: STAFF ED STAFF 02/09/2020 09:43:00 PM [facility] Medical PHYSICIAN EDT - 02/10/2020 06:48:00 Center AM EDT Patient discharged. Emergency Attender: STAFF ED STAFF H 02/09/2020 02:45:00 AM [facility] PHYSICIAN EDT - 02/09/2020 06:55:00 Center AM EDT Patient discharged. Emergency Attender: LITZY ED STAFF H 02/04/2020 11:24:00 AM [facility] PHYSICIANAttender: STAFF ED EDT - 02/04/2020 [facility] STAFF PHYSICIANAdmitter: LITZY 03:35:00 PM EDT ED STAFF PHYSICIAN Patient discharged. Emergency Attender: ED STAFF H 01/25/2020 06:06:00 PM [facility] PHYSICIANAttender: STAFF ED EDT - 01/26/2020 [facility] STAFF PHYSICIANAdmitter: ED 06:12:00 AM EDT STAFF PHYSICIAN Patient discharged. Emergency Attender: ED STAFF H 01/24/2020 08:18:00 PM [facility] PHYSICIANAttender: STAFF ED EDT - 01/25/2020 [facility] STAFF PHYSICIANAdmitter: ED 06:04:00 AM EDT STAFF PHYSICIAN Patient discharged. Emergency Attender: JOSE ED STAFF 01/24/2020 01:40:00 PM [facility] PHYSICIANAttender: STAFF ED EDT - 01/24/2020 [facility] STAFF PHYSICIANAdmitter: 05:56:00 PM EDT [place] ED STAFF PHYSICIAN Patient discharged. Emergency Attender: STAFF ED STAFF 01/20/2020 03:33:00 PM [facility] Medical PHYSICIAN EDT - 01/20/2020 06:41:00 [place] PM EDT Patient discharged. Emergency Attender: JOSE ED STAFF 01/19/2020 11:13:00 AM [facility] PHYSICIANAttender: STAFF ED EDT - 01/19/2020 [facility] STAFF PHYSICIANAdmitter: 03:48:00 PM EDT [place] ED STAFF PHYSICIAN Patient discharged. Emergency Attender: ED STAFF 01/18/2020 09:44:00 PM [facility] PHYSICIANAttender: STAFF ED EDT - 01/19/2020 [facility] STAFF PHYSICIANAdmitter: ED 06:28:00 AM EDT STAFF PHYSICIAN Patient discharged. Outpatient Attender: [id number] 01/14/2020 01:13:05 PM I ([facility] EDT Collabor[facility]) Patient admitted. Emergency Attender: JOSE ED STAFF H 01/06/2020 01:03:00 PM [facility] PHYSICIANAttender: STAFF ED EDT - 01/06/2020 [facility] STAFF PHYSICIANAdmitter: 09:00:00 PM EDT [place] ED STAFF PHYSICIAN Patient discharged. Emergency Attender: STAFF ED STAFF H 01/05/2020 08:46:00 PM [facility] PHYSICIAN EDT - 01/06/2020 09:01:00 Center AM EDT Patient discharged. Emergency Attender: JOSE ED STAFF H 01/05/2020 02:24:00 PM [facility] PHYSICIANAttender: STAFF ED EDT - 01/05/2020 [facility] STAFF PHYSICIANAdmitter: 05:02:00 PM EDT [place] ED STAFF PHYSICIAN Patient discharged. Emergency Attender: STAFF ED STAFF 01/03/2020 08:50:00 PM [facility] PHYSICIAN EDT - 01/04/2020 06:32:00 Center AM EDT Patient discharged. Emergency Attender: ED STAFF 12/30/2019 08:35:00 PM [facility] PHYSICIANAttender: STAFF ED EDT - 12/31/2019 [facility] STAFF PHYSICIANAdmitter: ED 06:54:00 AM EDT STAFF PHYSICIAN Patient discharged. Emergency Attender: ED STAFF 12/30/2019 04:36:00 PM [facility] PHYSICIANAttender: STAFF ED EDT - 12/31/2019 [facility] STAFF PHYSICIANAdmitter: ED 06:55:00 AM EDT STAFF PHYSICIAN Patient discharged. Emergency Attender: LITZY ED STAFF 12/29/2019 03:42:00 PM [facility] PHYSICIANAttender: STAFF ED EDT - 12/29/2019 [facility] STAFF PHYSICIANAdmitter: LITZY 08:14:00 PM EDT ED STAFF PHYSICIAN Patient discharged. Emergency Attender: STAFF ED STAFF 12/28/2019 10:09:00 PM [facility] PHYSICIAN EDT - 12/29/2019 06:04:00 Center AM EDT Patient discharged. Emergency Attender: ED STAFF 12/28/2019 01:13:00 AM [facility] PHYSICIANAttender: STAFF ED EDT - 12/28/2019 [facility] STAFF PHYSICIANAdmitter: ED 09:44:00 AM EDT STAFF PHYSICIAN Patient discharged. Emergency Attender: LITZY ED STAFF 12/27/2019 06:29:00 PM [facility] PHYSICIANAttender: ED STAFF EDT - 12/27/2019 [facility] PHYSICIANAttender: STAFF ED 10:06:00 PM EDT STAFF PHYSICIANAdmitter: LITZY ED STAFF PHYSICIAN Patient discharged. Emergency Attender: JOSE ED STAFF 12/27/2019 12:06:00 PM [facility] PHYSICIANAttender: LITZY ED EDT - 12/27/2019 [facility] STAFF PHYSICIANAttender: STAFF 10:05:00 PM EDT ED STAFF PHYSICIANAdmitter: JOSE ED STAFF PHYSICIAN Patient discharged. Emergency Attender: ED STAFF H-ER 12/24/2019 11:12:00 [facility] PHYSICIANAttender: STAFF ED PM EDT - 12/25/2019 [facility] STAFF PHYSICIANAdmitter: ED 05:53:00 AM EDT STAFF PHYSICIAN Patient discharged. Emergency Attender: LITZY ED STAFF H 12/22/2019 04:41:00 PM [facility] PHYSICIANAttender: STAFF ED EDT - 12/23/2019 [facility] STAFF PHYSICIANAdmitter: LITZY 06:19:00 AM EDT ED STAFF PHYSICIAN Patient discharged. Emergency Attender: LITZY ED STAFF H 12/20/2019 08:52:00 PM [facility] PHYSICIANAttender: STAFF ED EDT - 12/20/2019 [facility] STAFF PHYSICIANAdmitter: LITZY 11:29:00 PM EDT ED STAFF PHYSICIAN Patient discharged. Emergency Attender: ED STAFF 12/18/2019 05:15:00 AM [facility] PHYSICIANAttender: STAFF ED EDT - 12/18/2019 [facility] STAFF PHYSICIANAdmitter: ED 06:04:00 AM EDT STAFF PHYSICIAN Patient discharged. Emergency Attender: LITZY ED STAFF 12/17/2019 04:35:00 PM [facility] PHYSICIANAttender: STAFF ED EDT - 12/18/2019 [facility] STAFF PHYSICIANAdmitter: LITZY 03:16:00 AM EDT ED STAFF PHYSICIANReferrer: STAFF ED STAFF PHYSICIAN Patient discharged. Emergency Attender: ED STAFF H 12/16/2019 07:15:00 PM [facility] PHYSICIANAttender: STAFF ED EDT - 12/17/2019 [facility] STAFF PHYSICIANAdmitter: ED 06:39:00 AM EDT STAFF PHYSICIANReferrer: STAFF ED STAFF PHYSICIAN Patient discharged. Emergency Attender: ED STAFF H 12/16/2019 02:10:00 PM [facility] PHYSICIANAttender: STAFF ED EDT - 12/16/2019 [facility] STAFF PHYSICIANAdmitter: ED 05:38:00 PM EDT STAFF PHYSICIAN Patient discharged. Emergency Attender: JOSE ED STAFF H 12/14/2019 02:52:00 PM [facility] PHYSICIANAttender: ED STAFF EDT - 12/14/2019 [facility] PHYSICIANAttender: STAFF ED 09:24:00 PM EDT STAFF PHYSICIANAdmitter: JOSE ED STAFF PHYSICIAN Patient discharged. Emergency Attender: FRANCISCA ED STAFF 12/10/2019 06:39:00 PM [facility] PHYSICIANAttender: ED STAFF EDT - 12/10/2019 [facility] PHYSICIANAttender: STAFF ED 09:42:00 PM EDT STAFF PHYSICIANAdmitter: [facility] ED STAFF PHYSICIAN Patient discharged. Emergency Attender: ED STAFF 12/09/2019 02:37:00 PM [facility] PHYSICIANAttender: STAFF ED EDT - 12/09/2019 [facility] STAFF PHYSICIANAdmitter: ED 04:39:00 PM EDT STAFF PHYSICIAN Patient discharged. Emergency Attender: ED STAFF 12/08/2019 10:33:00 PM [facility] PHYSICIANAttender: STAFF ED EDT - 12/09/2019 [facility] STAFF PHYSICIANAdmitter: ED 06:03:00 AM EDT STAFF PHYSICIAN Patient discharged. Emergency Attender: LITZY ED STAFF 12/08/2019 01:04:00 PM [facility] PHYSICIANAttender: STAFF ED EDT - 12/08/2019 [facility] STAFF PHYSICIANAdmitter: LITZY 04:42:00 PM EDT ED STAFF PHYSICIAN Patient discharged. Emergency Attender: STAFF ED STAFF 12/08/2019 01:26:00 AM [facility] Medical PHYSICIAN EDT - 12/08/2019 03:22:00 Center AM EDT Patient discharged. Emergency Attender: ED STAFF 12/07/2019 02:19:00 PM [facility] PHYSICIANAttender: STAFF ED EDT - 12/07/2019 [facility] STAFF PHYSICIANAdmitter: ED 06:57:00 PM EDT STAFF PHYSICIAN Patient discharged. Emergency Attender: LITZY ED STAFF 12/06/2019 06:10:00 PM [facility] PHYSICIANAttender: STAFF ED EDT - 12/07/2019 [facility] STAFF PHYSICIANAdmitter: LITZY 12:43:00 AM EDT ED STAFF PHYSICIAN Patient discharged. Emergency Attender: ED STAFF H 12/04/2019 08:59:00 PM [facility] PHYSICIANAttender: STAFF ED EDT - 12/05/2019 [facility] STAFF PHYSICIANAdmitter: ED 05:48:00 AM EDT STAFF PHYSICIANReferrer: STAFF ED STAFF PHYSICIAN Patient discharged. Emergency Attender: ED STAFF H 12/03/2019 08:01:00 PM [facility] PHYSICIANAttender: STAFF ED EDT - 12/03/2019 [facility] STAFF PHYSICIANAdmitter: ED 10:34:00 PM EDT STAFF PHYSICIAN Patient discharged. Emergency Attender: ED STAFF H 12/03/2019 01:49:00 PM [facility] PHYSICIANAttender: STAFF ED EDT - 12/03/2019 [facility] STAFF PHYSICIANAdmitter: ED 05:15:00 PM EDT STAFF PHYSICIANReferrer: STAFF ED STAFF PHYSICIAN Patient discharged. Emergency Attender: STAFF ED STAFF H 12/02/2019 08:09:00 PM [facility] PHYSICIAN EDT - 12/03/2019 07:06:00 Center AM EDT Patient discharged. Emergency Attender: ED STAFF 11/30/2019 04:27:00 PM [facility] PHYSICIANAttender: STAFF ED EDT - 11/30/2019 [facility] STAFF PHYSICIANAdmitter: ED 11:51:00 PM EDT STAFF PHYSICIAN Patient discharged. Emergency Attender: STAFF ED STAFF 11/30/2019 03:04:00 AM [facility] PHYSICIAN EDT - 11/30/2019 07:04:00 Center AM EDT Patient discharged. Emergency Attender: LITZY ED STAFF 11/29/2019 04:39:00 PM [facility] PHYSICIANAttender: STAFF ED EDT - 11/29/2019 [facility] STAFF PHYSICIANAdmitter: LITZY 10:06:00 PM EDT ED STAFF PHYSICIAN Patient discharged. Emergency Attender: ED STAFF 11/25/2019 09:53:00 PM [facility] PHYSICIANAttender: STAFF ED EDT - 11/26/2019 [facility] STAFF PHYSICIANAdmitter: ED 06:08:00 AM EDT STAFF PHYSICIAN Patient discharged. Emergency Attender: ED STAFF H 11/25/2019 12:05:00 PM [facility] PHYSICIANAttender: Josue EDT - 11/25/2019 [facility] [place] MDAttender: STAFF 03:49:00 PM EDT ED STAFF PHYSICIANAdmitter: ED STAFF PHYSICIAN Patient discharged. Emergency Attender: STAFF ED STAFF H 11/24/2019 10:37:00 PM [facility] PHYSICIAN EDT - 11/25/2019 01:28:00 Center AM EDT Patient discharged. Emergency Attender: JOSE ED STAFF H 11/24/2019 02:04:00 PM [facility] PHYSICIANAttender: LITZY ED EDT - 11/24/2019 [facility] STAFF PHYSICIANAttender: STAFF 05:13:00 PM EDT ED STAFF PHYSICIANAdmitter: [place] ED STAFF PHYSICIAN Patient discharged. Emergency Attender: ED STAFF 11/23/2019 05:20:00 PM [facility] PHYSICIANAttender: STAFF ED EDT - 11/24/2019 [facility] STAFF PHYSICIANAdmitter: ED 05:19:00 AM EDT STAFF PHYSICIAN Patient discharged. Emergency Attender: LITZY ED STAFF 11/22/2019 08:30:00 PM [facility] PHYSICIANAttender: STAFF ED EDT - 11/23/2019 [facility] STAFF PHYSICIANAdmitter: LITZY 06:02:00 AM EDT ED STAFF PHYSICIAN Patient discharged. Emergency Attender: LITZY ED STAFF 11/22/2019 01:37:00 PM [facility] PHYSICIANAttender: STAFF ED EDT - 11/22/2019 [facility] STAFF PHYSICIANAdmitter: LITZY 05:57:00 PM EDT ED STAFF PHYSICIAN Patient discharged. Emergency Attender: LITZY ED STAFF 11/20/2019 03:54:00 PM [facility] PHYSICIANAttender: STAFF ED EDT - 11/20/2019 [facility] STAFF PHYSICIANAdmitter: LITZY 07:33:00 PM EDT ED STAFF PHYSICIAN Patient discharged. Emergency Attender: ED STAFF 11/18/2019 01:25:00 PM [facility] PHYSICIANAttender: STAFF ED EDT - 11/19/2019 [facility] STAFF PHYSICIANAdmitter: ED 01:40:00 AM EDT STAFF PHYSICIAN Patient discharged. Emergency Attender: STAFF ED STAFF 11/16/2019 08:42:00 PM [facility] Medical PHYSICIAN EDT - 11/17/2019 05:38:00 Center AM EDT Patient discharged. Emergency Attender: ED STAFF 11/16/2019 01:46:00 PM [facility] PHYSICIANAttender: ED STAFF EDT - 11/16/2019 [facility] PHYSICIANAttender: STAFF ED 05:41:00 PM EDT STAFF PHYSICIANAdmitter: ED STAFF PHYSICIAN Patient discharged. Emergency Attender: JOSE ED STAFF 11/10/2019 04:25:00 PM [facility] PHYSICIANAttender: STAFF ED EDT - 11/10/2019 [facility] STAFF PHYSICIANAdmitter: 08:35:00 PM EDT [place] ED STAFF PHYSICIAN Patient discharged. Emergency Attender: JOSE ED STAFF 11/08/2019 02:38:00 PM [facility] PHYSICIANAttender: STAFF ED EDT - 11/08/2019 [facility] STAFF PHYSICIANAdmitter: 10:15:00 PM EDT [place] ED STAFF PHYSICIAN Patient discharged. Emergency Attender: ED STAFF H 11/07/2019 10:18:00 PM [facility] PHYSICIANAttender: STAFF ED EDT - 11/14/2019 [facility] STAFF PHYSICIANAdmitter: ED 12:48:00 AM EDT STAFF PHYSICIANReferrer: STAFF ED STAFF PHYSICIAN Patient discharged. Emergency Attender: ED STAFF H 11/05/2019 01:32:00 PM [facility] PHYSICIANAttender: STAFF ED EDT - 11/05/2019 [facility] STAFF PHYSICIANAdmitter: ED 07:57:00 PM EDT STAFF PHYSICIAN Patient discharged. Emergency Attender: STAFF ED STAFF 11/03/2019 09:29:00 PM [facility] Medical PHYSICIAN EDT - 11/03/2019 11:21:00 [place] PM EDT Patient discharged. Emergency Attender: ED STAFF 11/02/2019 07:07:00 PM [facility] PHYSICIANAttender: STAFF ED EDT - 11/03/2019 [facility] STAFF PHYSICIANAdmitter: ED 12:39:00 AM EDT STAFF PHYSICIAN Patient discharged. Emergency Attender: JOSE ED STAFF 11/01/2019 02:09:00 PM [facility] PHYSICIANAttender: STAFF ED EDT - 11/01/2019 [facility] STAFF PHYSICIANAdmitter: 09:18:00 PM EDT [place] ED STAFF PHYSICIAN Patient discharged. Emergency Attender: ED STAFF 10/31/2019 06:02:00 PM [facility] PHYSICIANAttender: ED STAFF EDT - 10/31/2019 [facility] PHYSICIANAttender: STAFF ED 10:38:00 PM EDT STAFF PHYSICIANAdmitter: ED STAFF PHYSICIAN Patient discharged. Emergency Attender: ED STAFF H 10/30/2019 02:58:00 PM [facility] PHYSICIANAttender: STAFF ED EDT - 10/31/2019 [facility] STAFF PHYSICIANAdmitter: ED 02:24:00 AM EDT STAFF PHYSICIAN Patient discharged. Emergency Attender: LITZY ED STAFF H 10/28/2019 08:51:00 PM [facility] PHYSICIANAttender: STAFF ED EDT - 10/29/2019 [facility] STAFF PHYSICIANAdmitter: LITZY 03:06:00 AM EDT ED STAFF PHYSICIAN Patient discharged. Emergency Attender: LITZY ED STAFF H 10/27/2019 06:36:00 PM [facility] PHYSICIANAttender: STAFF ED EDT - 10/27/2019 [facility] STAFF PHYSICIANAdmitter: LITZY 10:23:00 PM EDT ED STAFF PHYSICIAN Patient discharged. Emergency Attender: ED STAFF H 10/22/2019 06:02:00 PM [facility] PHYSICIANAttender: ED STAFF EDT - 10/22/2019 [facility] PHYSICIANAttender: STAFF ED 10:48:00 PM EDT STAFF PHYSICIANAdmitter: ED STAFF PHYSICIANReferrer: STAFF ED STAFF PHYSICIAN Patient discharged. Emergency Attender: ED STAFF H 10/22/2019 01:07:00 AM [facility] PHYSICIANAttender: STAFF ED EDT - 10/22/2019 [facility] STAFF PHYSICIANAdmitter: ED 06:20:00 AM EDT STAFF PHYSICIAN Patient discharged. Emergency Attender: JOSE ED STAFF 10/21/2019 03:39:00 PM [facility] PHYSICIANAttender: STAFF ED EDT - 10/22/2019 [facility] STAFF PHYSICIANAdmitter: 12:14:00 AM EDT [place] ED STAFF PHYSICIAN Patient discharged. Emergency Attender: STAFF ED STAFF 10/21/2019 12:18:00 AM [facility] Medical PHYSICIAN EDT - 10/21/2019 07:03:00 Center AM EDT Patient discharged. Emergency Attender: ED STAFF H 10/19/2019 08:03:00 PM [facility] PHYSICIANAttender: STAFF ED EDT - 10/20/2019 [facility] STAFF PHYSICIANAdmitter: ED 06:09:00 AM EDT STAFF PHYSICIAN Patient discharged. Emergency Attender: ED STAFF H 10/18/2019 06:11:00 AM [facility] PHYSICIANAttender: STAFF ED EDT - 10/18/2019 [facility] STAFF PHYSICIANAdmitter: ED 09:49:00 PM EDT STAFF PHYSICIAN Patient discharged. Emergency Attender: ED STAFF H 10/17/2019 08:24:00 PM [facility] PHYSICIANAttender: ED STAFF EDT - 10/17/2019 [facility] PHYSICIANAttender: STAFF ED 11:42:00 PM EDT STAFF PHYSICIANAdmitter: ED STAFF PHYSICIAN Patient discharged. Emergency Attender: JOSE ED STAFF H 10/15/2019 01:27:00 PM [facility] PHYSICIANAttender: STAFF ED EDT - 10/15/2019 [facility] STAFF PHYSICIANAdmitter: 03:49:00 PM EDT [place] ED STAFF PHYSICIAN Patient discharged. Emergency Attender: LITZY ED STAFF H 10/13/2019 07:22:00 PM [facility] PHYSICIANAttender: STAFF ED EDT - 10/13/2019 [facility] STAFF PHYSICIANAdmitter: LITZY 10:35:00 PM EDT ED STAFF PHYSICIAN Patient discharged. Emergency Attender: JOSE ED STAFF 10/13/2019 07:53:00 AM [facility] PHYSICIANAttender: STAFF ED EDT - 10/13/2019 [facility] STAFF PHYSICIANAdmitter: 06:44:00 PM EDT [place] ED STAFF PHYSICIAN Patient discharged. Emergency Attender: STAFF ED STAFF 10/12/2019 12:49:00 AM [facility] PHYSICIAN EDT - 10/12/2019 02:10:00 Center AM EDT Patient discharged. Emergency Attender: LITZY ED STAFF 10/11/2019 02:37:00 PM [facility] PHYSICIANAttender: STAFF ED EDT - 10/11/2019 [facility] [facility] STAFF PHYSICIANAdmitter: LITZY 08:39:00 PM EDT ED STAFF PHYSICIAN Patient discharged. Outpatient Attender: [id number] [facility] 10/10/2019 07:26:38 AM [facility] ([facility] EDT Collaborative) Patient admitted. Outpatient Attender: [id number] [facility] 10/10/2019 07:26:35 AM [facility] ([facility] EDT Collaborative) Patient admitted. Emergency Attender: JOSE ED STAFF 10/06/2019 09:24:00 AM [facility] PHYSICIANAttender: STAFF ED EDT - 10/06/2019 [facility] STAFF PHYSICIANAdmitter: 11:20:00 AM EDT [place] ED STAFF PHYSICIAN Patient discharged. Emergency Attender: STAFF ED STAFF 10/05/2019 08:44:00 PM [facility] PHYSICIAN EDT - 10/06/2019 12:39:00 Center AM EDT Patient discharged. Inpatient Attender: TUYET Sage-ED 09/17/2019 11:20:00 [facility] TRISTANAttender: STAFF ED PM EDT - 09/19/2019 [facility] STAFF PHYSICIANAdmitter: 07:49:00 AM EDT TUYET KELLI TRISTANReferrer: TUYET KELLI TUYET Patient discharged. Emergency Attender: Josue Mendez Aolna 09/17/2019 05:08: 00 PM [facility] MDAttender: STAFF ED STAFF EDT - 09/18/2019 [facility] PHYSICIANAdmitter: Josue 04:33:00 AM EDT Tanja MDReferrer: STAFF ED STAFF PHYSICIAN Patient discharged. Emergency Attender: STAFF ED STAFF 09/14/2019 08:44:00 PM [facility] PHYSICIAN EDT - 09/15/2019 09:09:00 Center AM EDT Patient discharged. Emergency Attender: LITZY ED STAFF 09/13/2019 07:30:00 PM [facility] PHYSICIANAttender: STAFF ED EDT - 09/14/2019 [facility] STAFF PHYSICIANAdmitter: LITZY 08:43:00 AM EDT ED STAFF PHYSICIAN Patient discharged. Emergency Attender: JOSE ED STAFF 09/13/2019 08:56:00 AM [facility] PHYSICIANAttender: STAFF ED EDT - 09/13/2019 [facility] STAFF PHYSICIANAdmitter: 01:13:00 PM EDT [place] ED STAFF PHYSICIAN Patient discharged. Emergency Attender: STAFF ED STAFF 09/12/2019 08:31:00 PM [facility] PHYSICIAN EDT - 09/13/2019 07:32:00 Center AM EDT Patient discharged. Emergency Attender: ED STAFF 09/11/2019 08:42:00 PM [facility] PHYSICIANAttender: STAFF ED EDT - 09/12/2019 [facility] STAFF PHYSICIANAdmitter: ED 06:36:00 PM EDT STAFF PHYSICIANReferrer: STAFF ED STAFF PHYSICIAN Patient discharged. Emergency Attender: LITZY ED STAFF 09/11/2019 04:08:00 PM [facility] PHYSICIANAttender: STAFF ED EDT - 09/11/2019 [facility] STAFF PHYSICIANAdmitter: LITZY 06:54:00 PM EDT ED STAFF PHYSICIAN Patient discharged. Emergency Attender: ED STAFF H 09/10/2019 04:50:00 PM [facility] PHYSICIANAttender: STAFF ED EDT - 09/11/2019 [facility] STAFF PHYSICIANAdmitter: ED 08:33:00 PM EDT STAFF PHYSICIANReferrer: STAFF ED STAFF PHYSICIAN Patient discharged. Emergency Attender: ED STAFF H 09/08/2019 08:13:00 PM [facility] PHYSICIANAttender: STAFF ED EDT - 09/09/2019 [facility] STAFF PHYSICIANAdmitter: ED 08:40:00 AM EDT STAFF PHYSICIAN Patient discharged. Emergency Attender: STAFF ED STAFF 09/07/2019 10:06:00 PM [facility] Medical PHYSICIAN EDT - 09/08/2019 08:44:00 Center AM EDT Patient discharged. Emergency Attender: JOSE ED STAFF 09/05/2019 07:50:00 AM [facility] PHYSICIANAttender: ED STAFF EDT - 09/07/2019 [facility] PHYSICIANAttender: STAFF ED 06:44:00 AM EDT STAFF PHYSICIANAdmitter: [place] ED STAFF PHYSICIAN Patient discharged. Emergency Attender: STAFF ED STAFF 09/04/2019 10:01:00 PM [facility] PHYSICIANReferrer: STAFF ED EDT - 09/05/2019 [facility] STAFF PHYSICIAN 08:15:00 AM EDT Patient discharged. Emergency Attender: LITZY ED STAFF 09/04/2019 02:54:00 PM [facility] PHYSICIANAttender: STAFF ED EDT - 09/04/2019 [facility] STAFF PHYSICIANAdmitter: LITZY 08:59:00 PM EDT ED STAFF PHYSICIANReferrer: STAFF ED STAFF PHYSICIAN Patient discharged. Emergency Attender: STAFF ED STAFF 09/03/2019 08:39:00 PM [facility] PHYSICIANReferrer: STAFF ED EDT - 09/04/2019 [facility] STAFF PHYSICIAN 06:55:00 AM EDT Patient discharged. Emergency Attender: LITZY ED STAFF 09/02/2019 04:49:00 PM [facility] PHYSICIANAttender: ED STAFF EDT - 09/03/2019 [facility] PHYSICIANAttender: STAFF ED 12:12:00 AM EDT STAFF PHYSICIANAdmitter: [facility] ED STAFF PHYSICIAN Patient discharged. [id number] 09/02/2019 07:16:17 AM I ([facility] EDT Collaborative) Patient admitted. Emergency Attender: ED STAFF 09/01/2019 10:38:00 PM [facility] PHYSICIANAttender: STAFF ED EDT - 09/01/2019 [facility] STAFF PHYSICIANAdmitter: ED 11:35:00 PM EDT STAFF PHYSICIAN Patient discharged. Emergency Attender: JOSE ED STAFF H 09/01/2019 12:48:00 PM [facility] PHYSICIANAttender: LITZY ED EDT - 09/01/2019 [facility] STAFF PHYSICIANAttender: STAFF 09:37:00 PM EDT ED STAFF PHYSICIANAdmitter: [place] ED STAFF PHYSICIAN Patient discharged. Emergency Attender: ED STAFF H 08/31/2019 07:31:00 PM [facility] PHYSICIANAttender: STAFF ED EDT - 09/01/2019 [facility] STAFF PHYSICIANAdmitter: ED 04:06:00 AM EDT STAFF PHYSICIAN Patient discharged. Emergency Attender: ED STAFF H 08/29/2019 08:10:00 PM [facility] PHYSICIANAttender: STAFF ED EDT - 08/30/2019 [facility] STAFF PHYSICIANAdmitter: ED 08:39:00 AM EDT STAFF PHYSICIAN Patient discharged. Emergency Attender: ED STAFF H 08/28/2019 08:21:00 PM [facility] PHYSICIANAttender: STAFF ED EDT - 08/29/2019 [facility] STAFF PHYSICIANAdmitter: ED 08:53:00 AM EDT STAFF PHYSICIANReferrer: STAFF ED STAFF PHYSICIAN Patient discharged. Emergency Attender: ED STAFF 08/27/2019 08:45:00 PM [facility] PHYSICIANAttender: STAFF ED EDT - 08/28/2019 [facility] STAFF PHYSICIANAdmitter: ED 01:42:00 AM EDT STAFF PHYSICIANReferrer: STAFF ED STAFF PHYSICIAN Patient discharged. Emergency Attender: ED STAFF 08/27/2019 05:26:00 AM [facility] PHYSICIANAttender: ED STAFF EDT - 08/27/2019 [facility] PHYSICIANAttender: STAFF ED 04:41:00 PM EDT STAFF PHYSICIANAdmitter: ED STAFF PHYSICIAN Patient discharged. Emergency Attender: FRANCISCA ED STAFF H 08/25/2019 04:54:00 PM [facility] PHYSICIANAttender: LITZY ED EDT - 08/25/2019 [facility] STAFF PHYSICIANAttender: STAFF 07:49:00 PM EDT ED STAFF PHYSICIANAdmitter: [facility] Patient discharged. Emergency Attender: FRANCISCA ED STAFF H 08/24/2019 06:38:00 PM [facility] PHYSICIANAttender: STAFF ED EDT - 08/25/2019 [facility] STAFF PHYSICIANAdmitter: 05:59:00 AM EDT [place] ED STAFF PHYSICIAN Patient discharged. Emergency Attender: FRANCISCA ED STAFF H 08/23/2019 06:12:00 PM [facility] PHYSICIANAttender: STAFF ED EDT - 08/24/2019 [facility] STAFF PHYSICIAN 04:50:00 AM EDT Patient discharged. Emergency Attender: STAFF ED STAFF H 08/22/2019 08:59:00 PM [facility] Medical PHYSICIAN EDT - 08/23/2019 08:48:00 Center AM EDT Patient discharged. Emergency Attender: STAFF ED STAFF H 08/21/2019 09:12:00 PM [facility] PHYSICIANReferrer: STAFF ED EDT - 08/22/2019 [facility] STAFF PHYSICIAN 06:01:00 AM EDT Patient discharged. Emergency Attender: ED STAFF H 08/20/2019 03:19:00 PM [facility] PHYSICIANAttender: STAFF ED EST - 08/20/2019 [facility] STAFF PHYSICIANAdmitter: ED 11:42:00 PM EST STAFF PHYSICIAN Patient discharged. Emergency Attender: ED STAFF H 08/19/2019 07:15:00 PM [facility] PHYSICIANAttender: STAFF ED EST - 08/20/2019 [facility] STAFF PHYSICIANAdmitter: ED 03:04:00 AM EST STAFF PHYSICIAN Patient discharged. Emergency Attender: ED STAFF H 08/19/2019 03:56:00 PM [facility] PHYSICIANAttender: STAFF ED EST - 08/19/2019 [facility] STAFF PHYSICIANAdmitter: ED 06:55:00 PM EST STAFF PHYSICIAN Patient discharged. Emergency Attender: LITZY ED STAFF 08/18/2019 03:54:00 PM [facility] PHYSICIANAttender: STAFF ED EST - 08/18/2019 [facility] STAFF PHYSICIANAdmitter: LITZY 10:23:00 PM EST ED STAFF PHYSICIAN Patient discharged. Emergency Attender: ED STAFF H 08/17/2019 02:27:00 PM [facility] PHYSICIANAttender: STAFF ED EST - 08/18/2019 [facility] STAFF PHYSICIANAdmitter: ED 08:39:00 AM EST STAFF PHYSICIAN Patient discharged. Emergency Attender: STAFF ED STAFF H 08/17/2019 02:43:00 AM [facility] Medical PHYSICIAN EST - 08/17/2019 09:44:00 Center AM EST Patient discharged. Emergency Attender: EVA 08/16/2019 03:33:00 [facility] RICHARDAttender: EMERGENCY PM [facility] SERVICE, XAdmitter: [place], [facility]AL Emergency Attender: LITZY ED STAFF 08/12/2019 05:29:00 PM [facility] PHYSICIANAttender: FRANCISCA ED EST - 08/13/2019 [facility] STAFF PHYSICIANAttender: STAFF 05:43:00 AM EST ED STAFF PHYSICIANAdmitter: LITZY ED STAFF PHYSICIAN Patient discharged. Emergency Attender: LITZY ED STAFF 08/11/2019 05:01:00 PM [facility] PHYSICIANAttender: STAFF ED EST - 08/12/2019 [facility] [place] STAFF PHYSICIANAdmitter: LITZY 12:41:00 AM EST ED STAFF PHYSICIAN Patient discharged. Emergency Attender: ED STAFF 08/10/2019 10:37:00 PM [facility] PHYSICIANAttender: STAFF ED EST - 08/11/2019 [facility] STAFF PHYSICIANAdmitter: ED 01:01:00 AM EST STAFF PHYSICIAN Patient discharged. Emergency Attender: AGUILAR ED STAFF 08/10/2019 04:09:00 PM [facility] PHYSICIANAttender: STAFF ED EST - 08/10/2019 [facility] STAFF PHYSICIANAdmitter: AGUILAR 11:02:00 PM EST ED STAFF PHYSICIAN Patient discharged. Emergency Attender: ED STAFF 08/09/2019 07:25:00 PM [facility] PHYSICIANAttender: STAFF ED EST - 08/10/2019 [facility] STAFF PHYSICIANAdmitter: ED 09:58:00 AM EST STAFF PHYSICIAN Patient discharged. Emergency Attender: LEONEL CASTANEDA 08/08/2019 04:28: 00 PM [facility] SAttenthaddeus: STAFF ED STAFF EST - 08/09/2019 [facility] PHYSICIANAdmitter: LEONEL 10:32:00 AM EST [place] LEONEL S Patient discharged. Emergency Attender: ED STAFF 08/06/2019 03:52:00 PM [facility] PHYSICIANAttender: ED STAFF EST - 08/07/2019 [facility] PHYSICIANAttender: STAFF ED 12:38:00 AM EST STAFF PHYSICIANAdmitter: ED STAFF PHYSICIAN Patient discharged. Emergency Attender: LEONEL CASTANEDA 08/01/2019 06:41: 00 PM [facility] SAttender: STAFF ED STAFF EST - 08/02/2019 [facility] PHYSICIANAdmitter: LEONEL 08:35:00 AM EST [place] LEONEL S Patient discharged. Emergency Attender: STAFF ED STAFF 07/31/2019 11:25:00 PM [facility] PHYSICIAN EST - 08/01/2019 08:56:00 Center AM EST Patient discharged. Emergency Attender: LITZY ED STAFF 07/31/2019 05:39:00 PM [facility] PHYSICIANAttender: STAFF ED EST - 07/31/2019 [facility] STAFF PHYSICIANAdmitter: LITZY 07:38:00 PM EST ED STAFF PHYSICIANReferrer: STAFF ED STAFF PHYSICIAN Patient discharged. Emergency Attender: STAFF ED STAFF 07/30/2019 07:01:00 PM [facility] PHYSICIANReferrer: STAFF ED EST - 07/31/2019 [facility] STAFF PHYSICIAN 04:29:00 PM EST Patient discharged. Emergency Attender: STAFF ED STAFF 07/29/2019 09:45:00 PM [facility] PHYSICIAN [facility] - 07/30/2019 07:10:00 Center AM EST Patient discharged. Emergency Attender: LITZY ED STAFF 07/28/2019 02:39:00 PM [facility] PHYSICIANAttender: ED STAFF EST - 07/29/2019 [facility] PHYSICIANAttender: STAFF ED 01:25:00 AM EST STAFF PHYSICIANAdmitter: [facility] ED STAFF PHYSICIAN Patient discharged. Emergency Attender: JOSE ED STAFF 07/28/2019 03:16:00 AM [facility] PHYSICIANAttender: STAFF ED EST - 07/28/2019 [facility] STAFF PHYSICIANAdmitter: 10:10:00 AM EST [place] ED STAFF PHYSICIAN Patient discharged. Emergency Attender: ED STAFF 07/27/2019 03:24:00 PM [facility] PHYSICIANAttender: STAFF ED EST - 07/27/2019 [facility] STAFF PHYSICIANAdmitter: ED 10:57:00 PM EST STAFF PHYSICIAN Patient discharged. Emergency Attender: JOSE ED STAFF 07/26/2019 02:36:00 PM [facility] PHYSICIANAttender: STAFF ED EST - 07/26/2019 [facility] STAFF PHYSICIANAdmitter: 06:36:00 PM EST [place] ED STAFF PHYSICIAN Patient discharged. Emergency Attender: ED STAFF 07/22/2019 12:21:00 AM [facility] PHYSICIANAttender: STAFF ED EST - 07/22/2019 [facility] STAFF PHYSICIANAdmitter: ED 01:50:00 AM EST STAFF PHYSICIAN Patient discharged. Emergency Attender: FRANCISCA ED STAFF H 07/17/2019 07:28:00 PM [facility] PHYSICIANAttender: STAFF ED EST - 07/17/2019 [facility] STAFF PHYSICIANAdmitter: 10:56:00 PM EST [facility] ED STAFF PHYSICIANReferrer: STAFF ED STAFF PHYSICIAN Patient discharged. Emergency Attender: FRANCISCA ED STAFF H 07/16/2019 03:07:00 PM [facility] PHYSICIANAttender: STAFF ED EST - 07/17/2019 [facility] STAFF PHYSICIANAdmitter: 03:19:00 AM EST [facility] ED STAFF PHYSICIAN Patient discharged. Emergency Attender: ED STAFF H-ER 07/15/2019 01:02:00 [facility] PHYSICIANAttender: STAFF ED AM EST - 07/15/2019 [facility] STAFF PHYSICIANAdmitter: ED 03:10:00 AM EST STAFF PHYSICIAN Patient discharged. Emergency Attender: JOSE ED STAFF 07/14/2019 07:29:00 AM [facility] PHYSICIANAttender: STAFF ED [facility] - 07/14/2019 [facility] STAFF PHYSICIANAdmitter: 12:19:00 PM EST [place] ED STAFF PHYSICIAN Patient discharged. Emergency Attender: ED STAFF 07/13/2019 05:30:00 PM [facility] PHYSICIANAttender: STAFF ED [facility] - 07/14/2019 [facility] STAFF PHYSICIANAdmitter: ED 05:30:00 AM EST STAFF PHYSICIAN Patient discharged. Emergency Attender: STAFF ED STAFF 07/13/2019 03:03:00 AM [facility] PHYSICIAN [facility] - 07/13/2019 10:05:00 [place] AM EST Patient discharged. Emergency Attender: STAFF ED STAFF 07/12/2019 09:37:00 PM [facility] PHYSICIAN [facility] - 07/13/2019 12:34:00 [place] AM EST Patient discharged. Emergency Attender: JOSE ED STAFF 07/12/2019 01:34:00 PM [facility] PHYSICIANAttender: STAFF ED [facility] - 07/12/2019 [facility] STAFF PHYSICIANAdmitter: 11:37:00 PM EST [place] ED STAFF PHYSICIAN Patient discharged. Emergency Attender: STAFF ED STAFF 07/09/2019 10:13:00 PM [facility] PHYSICIANReferrer: STAFF ED [facility] - 07/09/2019 [facility] STAFF PHYSICIAN 11:20:00 PM EST Patient discharged. Emergency Attender: ED STAFF 07/09/2019 11:25:00 AM [facility] PHYSICIANAttender: STAFF ED EST - 07/09/2019 [facility] STAFF PHYSICIANAdmitter: ED 03:37:00 PM EST STAFF PHYSICIAN Patient discharged. Emergency Attender: STAFF ED STAFF 07/08/2019 08:14:00 PM [facility] Medical PHYSICIAN [facility] - 07/09/2019 07:23:00 Center AM EST Patient discharged. Emergency Attender: LITZY ED STAFF 07/07/2019 07:49:00 PM [facility] PHYSICIANAttender: STAFF ED [facility] - 07/07/2019 [facility] STAFF PHYSICIANAdmitter: LITZY 09:07:00 PM EST ED STAFF PHYSICIAN Patient discharged. Emergency Attender: JOSE ED STAFF 07/07/2019 12:23:00 PM [facility] PHYSICIANAttender: STAFF ED [facility] - 07/07/2019 [facility] STAFF PHYSICIANAdmitter: 04:56:00 PM EST [place] ED STAFF PHYSICIAN Patient discharged. Emergency Attender: Josue Mendez 07/06/2019 06:30: 00 PM [facility] MDAttender: STAFF ED STAFF [facility] - 07/07/2019 [facility] PHYSICIANAdmitter: Josue 02:40:00 AM EST [facility] [place] Patient discharged. Emergency Attender: STAFF ED STAFF 07/05/2019 10:18:00 PM [facility] PHYSICIAN [facility] - 07/06/2019 07:08:00 Center AM EST Patient discharged. Emergency Attender: ED STAFF 07/04/2019 05:56:00 PM [facility] PHYSICIANAttender: ED STAFF [facility] - 07/05/2019 [facility] PHYSICIANAttender: STAFF ED 09:10:00 AM EST STAFF PHYSICIANAdmitter: ED STAFF PHYSICIANReferrer: STAFF ED STAFF PHYSICIAN Patient discharged. Emergency Attender: STAFF ED STAFF 07/03/2019 10:40:00 PM [facility] PHYSICIANReferrer: STAFF ED [facility] - 07/04/2019 [facility] STAFF PHYSICIAN 06:45:00 AM EST Patient discharged. Emergency Attender: ED STAFF 07/02/2019 06:17:00 PM [facility] PHYSICIANAttender: STAFF ED [facility] - 07/02/2019 [facility] STAFF PHYSICIANAdmitter: ED 08:42:00 PM EST STAFF PHYSICIANReferrer: STAFF ED STAFF PHYSICIAN Patient discharged. Emergency Attender: ED STAFF 07/01/2019 11:08:00 PM [facility] PHYSICIANAttender: STAFF ED [facility] - 07/02/2019 [facility] STAFF PHYSICIANAdmitter: ED 04:14:00 AM EST STAFF PHYSICIAN Patient discharged. Emergency Attender: ED STAFF 07/01/2019 07:08:00 PM [facility] PHYSICIANAttender: STAFF ED [facility] - 07/01/2019 [facility] STAFF PHYSICIANAdmitter: ED 09:50:00 PM EST STAFF PHYSICIAN Patient discharged. Emergency Attender: STAFF ED STAFF 06/29/2019 09:17:00 PM [facility] Medical PHYSICIAN [facility] - 06/30/2019 04:12:00 Center AM EST Patient discharged. Emergency Attender: STAFF ED STAFF 06/29/2019 03:02:00 AM [facility] Medical PHYSICIAN [facility] - 06/29/2019 09:25:00 Center AM EST Patient discharged. Emergency Attender: STAFF ED STAFF 06/28/2019 09:08:00 PM [facility] PHYSICIAN [facility] - 06/28/2019 11:20:00 Center PM EST Patient discharged. Emergency Attender: LITZY ED STAFF 06/28/2019 12:59:00 PM [facility] PHYSICIANAttender: STAFF ED [place] 06/28/2019 [facility] STAFF PHYSICIANAdmitter: LITZY 06:29:00 PM EST ED STAFF PHYSICIAN Patient discharged. Emergency Attender: ED STAFF 06/27/2019 11:57:00 PM [facility] PHYSICIANAttender: STAFF ED [facility] - 06/28/2019 [facility] STAFF PHYSICIANAdmitter: ED 02:12:00 AM EST STAFF PHYSICIAN Patient discharged. Emergency Attender: JOSE ED STAFF 06/27/2019 12:51:00 PM [facility] PHYSICIANAttender: STAFF ED [place] 06/27/2019 [facility] STAFF PHYSICIANAdmitter: 09:36:00 PM EST [place] ED STAFF PHYSICIAN Patient discharged. Emergency Attender: ED STAFF 06/27/2019 03:59:00 AM [facility] PHYSICIANAttender: STAFF ED [facility] - 06/27/2019 [facility] STAFF PHYSICIANAdmitter: ED 06:26:00 AM EST STAFF PHYSICIAN Patient discharged. Emergency Attender: STAFF ED STAFF 06/24/2019 10:59:00 PM [facility] PHYSICIAN [facility] - 06/25/2019 07:44:00 Center AM EST Patient discharged. Emergency Attender: ED STAFF 06/24/2019 01:51:00 PM [facility] PHYSICIANAttender: STAFF ED [facility] - 06/24/2019 [facility] STAFF PHYSICIANAdmitter: ED 10:37:00 PM EST STAFF PHYSICIAN Patient discharged. Emergency Attender: LITZY ED STAFF H 06/23/2019 04:58:00 PM [facility] PHYSICIANAttender: STAFF ED EST - 06/24/2019 [facility] STAFF PHYSICIANAdmitter: LITZY 02:50:00 AM EST ED STAFF PHYSICIAN Patient discharged. Emergency Attender: LITZY ED STAFF H 06/16/2019 06:18:00 PM [facility] PHYSICIANAttender: STAFF ED EST - 06/16/2019 [facility] STAFF PHYSICIANAdmitter: LITZY 09:48:00 PM EST ED STAFF PHYSICIAN Patient discharged. Emergency Attender: STAFF ED STAFF H 06/16/2019 05:45:00 AM [facility] PHYSICIAN EST - 06/16/2019 05:52:00 Center AM EST Patient discharged. Emergency Attender: JOSE ED STAFF 06/16/2019 02:25:00 AM [facility] PHYSICIANAttender: STAFF ED EST - 06/16/2019 [facility] STAFF PHYSICIAN 09:02:00 AM EST Patient discharged. Emergency Attender: ED STAFF 06/15/2019 01:01:00 PM [facility] PHYSICIANAttender: STAFF ED EST - 06/15/2019 [facility] STAFF PHYSICIANAdmitter: ED 07:10:00 PM EST STAFF PHYSICIAN Patient discharged. Emergency Attender: LITZY ED STAFF 06/14/2019 08:05:00 PM [facility] PHYSICIANAttender: ED STAFF [facility] - 06/15/2019 [facility] PHYSICIANAttender: STAFF ED 06:52:00 AM EST STAFF PHYSICIANAdmitter: [facility] ED STAFF PHYSICIAN Patient discharged. Emergency Attender: ED STAFF 06/13/2019 06:15:00 PM [facility] PHYSICIANAttender: FRANCISCA ED EST - 06/14/2019 [facility] STAFF PHYSICIANAttender: STAFF 05:26:00 AM EST ED STAFF PHYSICIANAdmitter: ED STAFF PHYSICIAN Patient discharged. Emergency Attender: FRANCISCA ED STAFF H 06/12/2019 08:47:00 PM [facility] PHYSICIANAttender: STAFF ED EST - 06/12/2019 [facility] STAFF PHYSICIANAdmitter: 09:46:00 PM EST [facility] ED STAFF PHYSICIANReferrer: STAFF ED STAFF PHYSICIAN Patient discharged. Emergency Attender: FRANCISCA ED STAFF H 06/12/2019 05:09:00 PM [facility] PHYSICIANAttender: LITZY ED EST - 06/12/2019 [facility] STAFF PHYSICIANAttender: STAFF 06:37:00 PM EST ED STAFF PHYSICIANAdmitter: FRANCISCA ED STAFF PHYSICIANReferrer: STAFF ED STAFF PHYSICIAN Patient discharged. Emergency Attender: ED STAFF H 06/10/2019 05:55:00 PM [facility] PHYSICIANAttender: STAFF ED EST - 06/10/2019 [facility] STAFF PHYSICIAN 10:34:00 PM EST Patient discharged. Emergency Attender: LITZY ED STAFF H 06/09/2019 08:54:00 PM [facility] PHYSICIANAttender: ED STAFF EST - 06/09/2019 [facility] PHYSICIANAttender: STAFF ED 10:57:00 PM EST STAFF PHYSICIANAdmitter: [facility] ED STAFF PHYSICIAN Patient discharged. Emergency Attender: LITZY ED STAFF 06/09/2019 06:18:00 PM [facility] PHYSICIANAttender: STAFF ED EST - 06/09/2019 [facility] STAFF PHYSICIANAdmitter: LITZY 07:46:00 PM EST ED STAFF PHYSICIAN Patient discharged. Emergency Attender: LITZY ED STAFF 06/09/2019 02:23:00 PM [facility] PHYSICIANAttender: STAFF ED EST - 06/09/2019 [facility] STAFF PHYSICIANAdmitter: LITZY 06:43:00 PM EST ED STAFF PHYSICIAN Patient discharged. Emergency Attender: ED STAFF 06/08/2019 08:07:00 PM [facility] PHYSICIANAttender: [facility] ED EST - 06/09/2019 [facility] STAFF PHYSICIANAttender: STAFF 08:46:00 AM EST ED STAFF PHYSICIANAdmitter: ED STAFF PHYSICIANReferrer: STAFF ED STAFF PHYSICIAN Patient discharged. Emergency Attender: LITZY ED STAFF 06/07/2019 04:26:00 PM [facility] PHYSICIANAttender: STAFF ED EST - 06/07/2019 [facility] STAFF PHYSICIANAdmitter: LITZY 08:39:00 PM EST ED STAFF PHYSICIAN Patient discharged. Emergency Attender: LEONEL Sage 06/06/2019 06:19: 00 PM [place]: STAFF ED STAFF EST - 06/06/2019 [facility] PHYSICIANAdmitter: LEONEL 11:22:00 PM EST JAY CASTANEDA S Patient discharged. Emergency Attender: JOSE ED STAFF H 06/06/2019 11:50:00 AM [facility] PHYSICIANAttender: STAFF ED EST - 06/06/2019 [facility] STAFF PHYSICIANAdmitter: 06:05:00 PM EST [place] ED STAFF PHYSICIAN Patient discharged. Emergency Attender: STAFF ED STAFF H 06/05/2019 05:53:00 PM [facility] PHYSICIANReferrer: STAFF ED EST - 06/06/2019 [facility] STAFF PHYSICIAN 11:24:00 AM EST Patient discharged. Emergency Attender: ED STAFF H 06/03/2019 02:42:00 PM [facility] PHYSICIANAttender: STAFF ED EST - 06/03/2019 [facility] STAFF PHYSICIANAdmitter: ED 07:12:00 PM EST STAFF PHYSICIAN Patient discharged. Emergency Attender: STAFF ED STAFF H 06/02/2019 03:47:00 PM [facility] Medical PHYSICIAN EST - 06/03/2019 06:24:00 Center AM EST Patient discharged. Emergency Attender: STAFF ED STAFF H-ER 06/01/2019 07:03:00 [facility] PHYSICIANAdmitter: STAFF ED PM EST - 06/02/2019 [facility] STAFF PHYSICIAN 09:42:00 AM EST Patient discharged. Emergency Attender: LEONEL CASTANEDA 06/01/2019 01:42: 00 PM [facility] Daly: STAFF ED STAFF EST - 06/01/2019 [facility] PHYSICIANAdmitter: LEONEL 01:45:00 PM EST [place] LEONEL March Patient discharged. Emergency Attender: AGUILAR ED STAFF 06/01/2019 01:37:00 PM [facility] PHYSICIANAttender: LEONEL [facility] - 06/01/2019 [facility] THOMPSON LEONEL Ibrahimder: STAFF 04:28:00 PM EST ED STAFF PHYSICIANAdmitter: AGUILAR ED STAFF PHYSICIAN Patient discharged. Emergency Attender: ED STAFF H 05/31/2019 02:29:00 PM [facility] PHYSICIANAttender: STAFF ED EST - 05/31/2019 [facility] STAFF PHYSICIANAdmitter: ED 08:32:00 PM EST STAFF PHYSICIAN Patient discharged. Emergency Attender: ED STAFF H 05/29/2019 02:39:00 PM [facility] PHYSICIANAttender: STAFF ED EST - 05/30/2019 [facility] STAFF PHYSICIANAdmitter: ED 07:02:00 AM EST STAFF PHYSICIAN Patient discharged. Emergency Attender: ED STAFF H 05/28/2019 09:23:00 PM [facility] PHYSICIANAttender: STAFF ED EST - 05/29/2019 [facility] STAFF PHYSICIANAdmitter: ED 07:28:00 AM EST STAFF PHYSICIANReferrer: STAFF ED STAFF PHYSICIAN Patient discharged. Emergency Attender: LEONEL CASTANEDA 05/28/2019 01:26: 00 PM [facility] D[place]: STAFF ED STAFF EST - 05/29/2019 [facility] PHYSICIANAdmitter: LEONEL 01:06:00 AM EST JAY March Patient discharged. Emergency Attender: LEONEL THOMPSON 05/24/2019 06:37:00 PM [facility] LEONEL SAtthierno: STAFF ED EST - 05/25/2019 10:3 3:00 Center STAFF PHYSICIAN AM EST Patient discharged. Emergency Attender: [place] ED STAFF H 05/24/2019 12:04:00 PM [facility] PHYSICIANAttender: STAFF ED EST - 05/24/2019 [facility] STAFF PHYSICIANAdmitter: 09:12:00 PM EST [place] ED STAFF PHYSICIAN Patient discharged. Emergency Attender: [facility] ED STAFF H 05/22/2019 10:10:00 PM [facility] PHYSICIANAttender: STAFF ED EST - 05/23/2019 [facility] STAFF PHYSICIANAdmitter: 09:05:00 AM EST [facility] ED STAFF PHYSICIAN Patient discharged. Emergency Attender: LITZY ED STAFF H 05/22/2019 02:13:00 PM [facility] PHYSICIANAttender: ELICIAE ED EST - 05/23/2019 [facility] STAFF PHYSICIANAttender: STAFF 12:13:00 AM EST ED STAFF PHYSICIANAdmitter: [facility] ED STAFF PHYSICIAN Patient discharged. Emergency Attender: [facility] ED STAFF H 05/21/2019 02:44:00 PM [facility] PHYSICIANAttender: LEONEL EST - [facility] STAFF 12:01:00 AM EST ED STAFF PHYSICIANAdmitter: [facility] ED STAFF PHYSICIAN Patient discharged. Emergency Attender: ED STAFF H 05/20/2019 06:51:00 PM [facility] PHYSICIANAttender: STAFF ED EST - 05/21/2019 [facility] STAFF PHYSICIANAdmitter: ED 11:22:00 AM EST STAFF PHYSICIAN Patient discharged. Emergency Attender: ED STAFF H 05/19/2019 09:29:00 PM [facility] PHYSICIANAttender: STAFF ED EST - 05/20/2019 [facility] STAFF PHYSICIANAdmitter: ED 06:30:00 AM EST STAFF PHYSICIAN Patient discharged. Emergency Attender: AGUILAR ED STAFF H 05/18/2019 01:40:00 PM [facility] PHYSICIANAttender: STAFF ED EST - 05/18/2019 [facility] STAFF PHYSICIANAdmitter: AGUILAR 10:18:00 PM EST ED STAFF PHYSICIAN Patient discharged. Emergency Attender: STAFF ED STAFF H 05/17/2019 11:12:00 PM [facility] Medical PHYSICIAN EST - 05/18/2019 08:10:00 Center AM EST Patient discharged. Emergency Attender: JOSE ED STAFF H 05/17/2019 12:42:00 PM [facility] PHYSICIANAttender: LITZY ED EST - 05/17/2019 [facility] STAFF PHYSICIANAttender: STAFF 10:01:00 PM EST ED STAFF PHYSICIANAdmitter: [place] ED STAFF PHYSICIAN Patient discharged. Emergency Attender: STAFF ED STAFF H 05/16/2019 08:04:00 PM [facility] PHYSICIANReferrer: STAFF ED EST - 05/17/2019 [facility] STAFF PHYSICIAN 08:38:00 AM EST Patient discharged. Emergency Attender: ED STAFF H 05/15/2019 04:42:00 PM [facility] PHYSICIANAttender: STAFF ED EST - 05/16/2019 [facility] STAFF PHYSICIANAdmitter: ED 08:39:00 AM EST STAFF PHYSICIANReferrer: STAFF ED STAFF PHYSICIAN Patient discharged. Emergency Attender: FRANCISCA ED STAFF H 05/14/2019 11:53:00 PM [facility] PHYSICIANAttender: STAFF ED EST - 05/15/2019 [facility] STAFF PHYSICIANAdmitter: 06:49:00 AM EST [facility] ED STAFF PHYSICIAN Patient discharged. Emergency Attender: FRANCISCA ED STAFF H 05/14/2019 03:32:00 PM [facility] PHYSICIANAttender: STAFF ED EST - 05/14/2019 [facility] STAFF PHYSICIANAdmitter: 11:00:00 PM EST [facility] ED STAFF PHYSICIAN Patient discharged. Inpatient Attender: RACHEL CORNEJO H-HAL5 05/07/2019 08:12:00 [facility] AKINOAttender: STAFF ED STAFF AM EST - 05/14/20 19 [facility] PHYSICIANAdmitter: AKINO 10:16:00 AM EST CLEMENTE OLSENOReferrer: RACHEL RAMOS Patient discharged. Emergency Attender: ED STAFF H 05/06/2019 05:37:00 PM [facility] PHYSICIANAttender: STAFF ED EST - 05/07/2019 [facility] STAFF PHYSICIANAdmitter: ED 04:16:00 AM EST STAFF PHYSICIAN Patient discharged. Emergency Attender: JOSE ED STAFF H 05/05/2019 04:09:00 PM [facility] PHYSICIANAttender: ED STAFF EST - 05/06/2019 [facility] PHYSICIANAttender: STAFF ED 09:14:00 AM EST STAFF PHYSICIANAdmitter: JOSE ED STAFF PHYSICIAN Patient discharged. Emergency Attender: STAFF ED STAFF H 05/04/2019 08:43:00 PM [facility] PHYSICIAN EST - 05/05/2019 06:47:00 Center AM EST Patient discharged. Emergency Attender: STAFF ED STAFF H 05/02/2019 03:18:00 PM [facility] PHYSICIAN EST - 05/02/2019 11:40:00 Center PM EST Patient discharged. Emergency Attender: LITZY ED STAFF H 05/01/2019 02:04:00 PM [facility] PHYSICIANAttender: STAFF ED EST - 05/01/2019 [facility] STAFF PHYSICIANAdmitter: LITZY 07:36:00 PM EST ED STAFF PHYSICIAN Patient discharged. Emergency Attender: ED STAFF H 04/30/2019 07:51:00 PM [facility] PHYSICIANAttender: STAFF ED EST - 05/01/2019 [facility] STAFF PHYSICIANAdmitter: ED 07:42:00 AM EST STAFF PHYSICIANReferrer: STAFF ED STAFF PHYSICIAN Patient discharged. Emergency Attender: STAFF ED STAFF 04/30/2019 02:40:00 PM [facility] PHYSICIAN [facility] - 04/30/2019 09:24:00 Center PM EST Patient discharged. Emergency Attender: ED STAFF H 04/29/2019 08:43:00 PM [facility] PHYSICIANAttender: STAFF ED EST - 04/30/2019 [facility] STAFF PHYSICIANAdmitter: ED 07:18:00 AM EST STAFF PHYSICIAN Patient discharged. Emergency Attender: STAFF ED STAFF H 04/29/2019 02:53:00 AM [facility] PHYSICIAN [facility] - 04/29/2019 09:26:00 Center AM EST Patient discharged. Emergency Attender: JOSE ED STAFF H 04/28/2019 03:54:00 PM [facility] PHYSICIANAttender: STAFF ED EST - 04/28/2019 [facility] STAFF PHYSICIANAdmitter: 09:41:00 PM EST JOSE ED STAFF PHYSICIAN Patient discharged. Emergency Attender: Josue Escobedo 04/27/2019 03:35:00 PM [facility] Andrea MDAttender: STAFF ED EST - 04/28/2019 Center STAFF PHYSICIAN 05:12:00 PM EST Patient discharged. Emergency Attender: STAFF ED STAFF H 04/26/2019 12:56:00 PM [facility] PHYSICIAN EST - 04/27/2019 05:57:00 Center AM EST Patient discharged. Emergency Attender: ED STAFF H 04/24/2019 01:54:00 AM [facility] PHYSICIANAttender: STAFF ED EST - 04/24/2019 [facility] STAFF PHYSICIANAdmitter: ED 09:19:00 AM EST STAFF PHYSICIAN Patient discharged. Emergency Attender: LEONEL CASTANEDA H 04/23/2019 01:05: 00 PM [facility] Daly: STAFF ED STAFF EST - 04/23/2019 [facility] PHYSICIANAdmitter: LEONEL 08:40:00 PM EST JAY CASTANEDA S Patient discharged. Emergency Attender: LITZY ED STAFF H 04/22/2019 04:09:00 PM [facility] PHYSICIANAttender: JOSE ED EST - 04/23/2019 [facility] STAFF PHYSICIANAttender: STAFF 08:02:00 AM EST ED STAFF PHYSICIANAdmitter: LITZY ED STAFF PHYSICIAN Patient discharged. Emergency Attender: JOSE ED STAFF 04/21/2019 12:10:00 PM [facility] PHYSICIANAttender: ED STAFF EST - 04/22/2019 [facility] PHYSICIANAttender: STAFF ED 06:50:00 AM EST STAFF PHYSICIANAdmitter: ED STAFF PHYSICIAN Patient discharged. Emergency Attender: AGUILAR ED STAFF 04/20/2019 01:07:00 PM [facility] PHYSICIANAttender: FRANCISCA ED EST - 04/21/2019 [facility] STAFF PHYSICIANAttender: STAFF 05:19:00 AM EST ED STAFF PHYSICIANAdmitter: AGUILAR ED STAFF PHYSICIAN Patient discharged. Emergency Attender: STAFF ED STAFF H 04/19/2019 09:58:00 PM [facility] PHYSICIAN EST - 04/20/2019 08:24:00 Center AM EST Patient discharged. Emergency Attender: LITZY ED STAFF H 04/19/2019 05:01:00 PM [facility] PHYSICIANAttender: STAFF ED EST - 04/19/2019 [facility] STAFF PHYSICIANAdmitter: LITZY 07:11:00 PM EST ED STAFF PHYSICIAN Patient discharged. Emergency Attender: JOSE ED STAFF H 04/19/2019 01:30:00 PM [facility] PHYSICIANAttender: LITZY ED EST - 04/19/2019 [facility] STAFF PHYSICIANAttender: STAFF 07:00:00 PM EST ED STAFF PHYSICIANAdmitter: JOSE ED STAFF PHYSICIAN Patient discharged. Emergency Attender: LEONEL THOMPSON H 04/18/2019 02:10:00 PM [facility] LEONEL SAttender: STAFF ED EST - 04/19/2019 08:3 4:00 Center STAFF PHYSICIAN AM EST Patient discharged. Emergency Attender: STAFF ED STAFF H 04/17/2019 07:23:00 PM [facility] PHYSICIAN EST - 04/18/2019 08:39:00 Center AM EST Patient discharged. Emergency Attender: LITZY ED STAFF H 04/16/2019 05:51:00 PM [facility] PHYSICIANAttender: ED STAFF EDT - 04/17/2019 [facility] PHYSICIANAttender: STAFF ED 03:56:00 AM EST STAFF PHYSICIANAdmitter: [facility] ED STAFF PHYSICIANReferrer: STAFF ED STAFF PHYSICIAN Patient discharged. Emergency H 04/11/2019 06:11:00 PM EDT - [address] [place] [address] 06:15:00 PM EDT Patient discharged. Emergency Admitter: ED STAFF H 04/11/2019 06:10:00 PM [facility] PHYSICIAN EDT - 04/12/2019 06:22:00 Center AM EDT Patient discharged. Emergency Attender: ED STAFF H 04/10/2019 07:46:00 PM [facility] PHYSICIANAdmitter: ED STAFF EDT - 04/11/2019 [facility] PHYSICIAN 07:41:00 AM EDT Patient discharged. Emergency Admitter: ED STAFF H 04/09/2019 09:12:00 PM [facility] PHYSICIAN EDT - 04/10/2019 07:41:00 Center AM EDT Patient discharged. Emergency H 04/08/2019 05:24:00 PM EDT - [address] [place] [address] 07:14:00 AM EDT Patient discharged. Emergency H 04/07/2019 04:50:00 AM EDT - [address] [place] [address] 08:39:00 AM EDT Patient discharged. Emergency Attender: AGUILAR ED STAFF H 04/06/2019 12:36:00 PM [facility] PHYSICIANAdmitter: AGUILAR ED EDT - 04/06/2019 [facility] Center STAFF PHYSICIAN 06:56:00 PM EDT Patient discharged. Emergency H 04/06/2019 01:23:00 AM EDT - [address] [place] [address] 01:23:00 PM EDT Patient discharged. Emergency H-ER 04/05/2019 03:07:00 PM EDT - [facility] 04/05/2019 10:17:00 PM EDT Patient discharged. Emergency Admitter: LEONEL THOMPSON H 04/04/2019 04:47[facility] 08:41:00 Center AM EDT Patient discharged. Emergency H 04/03/2019 05:58:00 PM EDT - [address] [place] [address] 07:07:00 AM EDT Patient discharged. Emergency H 04/02/2019 08:14:00 PM EDT - [address] [place] [address] 05:08:00 AM EDT Patient discharged. Emergency H 04/01/2019 07:44:00 PM EDT - [facility]03/[address] [place] [address] 07:05:00 AM EDT Patient discharged. Emergency H 03/31/2019 02:22:00 PM EDT - [facility]01/[address] [place] [address] 04:41:00 PM EDT Patient discharged. Emergency H 03/30/2019 04:51:00 PM EDT - [facility] 08:20:00 AM EDT Patient discharged. Emergency H-ER 03/26/2019 06:15:00 PM EDT - [facility] 03/27/2019 07:01:00 AM EDT Patient discharged. Emergency H 03/25/2019 03:53:00 PM EDT - [address] [place] [address] 07:45:00 AM EDT Patient discharged. Emergency H 03/24/2019 07:50:00 PM EDT - [address] [place] [address] 06:06:00 AM EDT Patient discharged. Emergency H 03/24/2019 12:27:00 PM EDT - [address] [place] [address] 02:32:00 PM EDT Patient discharged. Emergency H 03/23/2019 01:31:00 PM EDT - [address] [place] [address] 06:43:00 AM EDT Patient discharged. Emergency H 03/22/2019 10:58:00 PM EDT - [address] [place] [address] 08:46:00 AM EDT Patient discharged. Emergency H 03/16/2019 09:22:00 PM EDT - [address] [place] [address] 08:35:00 AM EDT Patient discharged. Emergency H 03/11/2019 06:34:00 PM EDT - [address] [place] [address] 06:53:00 AM EDT Patient discharged. Emergency H 03/10/2019 06:16:00 PM EDT - [address] [place] [address] 06:17:00 AM EDT Patient discharged. Emergency H 03/05/2019 08:33:00 PM EDT - [address] [place] [address] 06:17:00 AM EDT Patient discharged. Emergency H 03/04/2019 10:25:00 PM EDT - [address] [place] [address] 06:21:00 AM EDT Patient discharged. Emergency H 03/03/2019 06:39:00 PM EDT - [address] [place] [address] 08:38:00 AM EDT Patient discharged. Emergency H 03/02/2019 04:28:00 PM EDT - [address] [place] [address] 06:28:00 AM EDT Patient discharged. Emergency H-ER 03/01/2019 07:38:00 PM EDT - [facility] 03/02/2019 06:43:00 AM EDT Patient discharged. Emergency H 03/01/2019 11:58:00 AM EDT - [address] [place] [address] 03:10:00 PM EDT Patient discharged. Emergency H 02/28/2019 07:10:00 PM EDT - [address] [place] [address] 06:36:00 AM EDT Patient discharged. Emergency H 02/27/2019 04:55:00 PM EDT - [address] [place] [address] 09:21:00 PM EDT Patient discharged. Emergency H 02/24/2019 01:31:00 PM EDT - [address] [place] [address] 05:19:00 PM EDT Patient discharged. Emergency H 02/23/2019 10:43:00 PM EDT - [address] [place] [address] 06:26:00 AM EDT Patient discharged. Emergency Attender: AGUILAR ED STAFF H 02/23/2019 03:53:00 PM [facility] PHYSICIANAdmitter: AGUILAR ED EDT - 02/23/2019 [facility] [place] STAFF PHYSICIAN 11:10:00 PM EDT Patient discharged. Emergency H 02/22/2019 05:36:00 PM EDT - [address] [place] [address] 08:17:00 AM EDT Patient discharged. Emergency H 02/21/2019 05:19:00 PM EDT - [address] [place] [address] 09:06:00 AM EDT Patient discharged. Emergency H 02/19/2019 04:37:00 PM EDT - [address] [place] [address] 06:12:00 AM EDT Patient discharged. Emergency H 02/18/2019 05:43:00 PM EDT - [address] [place] [address] 10:19:00 PM EDT Patient discharged. Emergency H 02/17/2019 07:32:00 PM EDT - 02/[address] [place] [address] 10:22:00 AM EDT Patient discharged. Emergency H 02/17/2019 11:35:00 AM EDT - [address] [place] [address] 05:03:00 PM EDT Patient discharged. Emergency Attender: AGUILAR ED STAFF H 02/16/2019 08:31:00 PM [facility] PHYSICIAN EDT - 02/17/2019 09:52:00 Center AM EDT Patient discharged. Emergency H 02/15/2019 01:28:00 PM EDT - [address] [place] [address] 06:06:00 PM EDT Patient discharged. Emergency H 02/14/2019 08:12:00 PM EDT - [address] [place] [address] 08:23:00 AM EDT Patient discharged. Emergency H 02/13/2019 07:09:00 PM EDT - [address] [place] [address] 08:26:00 AM EDT Patient discharged. Emergency H 02/12/2019 01:57:00 PM EDT - [address] [place] [address] 04:14:00 AM EDT Patient discharged. Emergency H 02/11/2019 07:52:00 PM EDT - [address] [place] [address] 06:29:00 AM EDT Patient discharged. Emergency H 02/11/2019 01:28:00 PM EDT - [address] [place] [address] 06:46:00 PM EDT Patient discharged. Emergency H 02/09/2019 08:58:00 PM EDT - [address] [place] [address] 06:43:00 AM EDT Patient discharged. Emergency H 02/08/2019 01:31:00 PM EDT - [address] [place] [address] 08:50:00 AM EDT Patient discharged. Emergency H 02/07/2019 09:32:00 PM EDT - [address] [place] [address] 09:31:00 AM EDT Patient discharged. Emergency Attender: Josue Escobedo 02/05/2019 04:12:00 PM [facility] Andrea RICHMOND EDT - 02/06/2019 02:51:00 Center AM EDT Patient discharged. Emergency H 02/04/2019 06:27:00 PM EDT - [address] [place] [address] 06:44:00 AM EDT Patient discharged. Emergency H 02/03/2019 08:22:00 PM EDT - [address] [place] [address] 08:16:00 AM EDT Patient discharged. Emergency H-ER 02/02/2019 11:00:00 PM EDT - [facility] 02/03/2019 08:30:00 AM EDT Patient discharged. Emergency H 02/01/2019 09:37:00 PM EDT - [address] [place] [address] 08:40:00 AM EDT Patient discharged. Emergency H 02/01/2019 02:08:00 PM EDT - [address] [place] [address] 08:34:00 PM EDT Patient discharged. Emergency H 01/31/2019 03:49:00 PM EDT - [address] [place] [address] 08:20:00 PM EDT Patient discharged. Emergency H 01/29/2019 09:40:00 PM EDT - [address] [place] [address] 07:27:00 AM EDT Patient discharged. Emergency H 01/29/2019 12:08:00 PM EDT - [address] [place] [address] 07:18:00 PM EDT Patient discharged. Emergency H-ER 01/26/2019 06:27:00 PM EDT - [facility] 01/27/2019 06:21:00 AM EDT Patient discharged. Inpatient Attender: ELIANA STAHL HAL6 01/24/2019 07:34:00 [facility] ROBERTAdmitter: ELIANA PM EDT - 01/26/2019 [facility] FAVIO MONROYReferrer: 09:40:00 AM EDT ELIANA MONROY Patient discharged. Inpatient Attender: ELIANA STAHL -HAL6 01/19/2019 12:40:00 [facility] ROBERTAttender: SANG PM EDT - 01/24/2019 [facility] LEEAdmitter: ELIANA 08:33:00 AM EDT FAVIOSKIP MONROYReferrer: ELIANA MNOROY Patient discharged. Emergency H 01/18/2019 03:58:00 PM EDT - [address] [place] [address] 09:18:00 AM EDT Patient discharged. Emergency H 01/17/2019 05:50:00 PM [facility] EDT Center Emergency H 01/17/2019 05:11:00 AM [facility] EDT Center Emergency H 01/15/2019 07:48:00 PM [facility] EDT Center Emergency H 01/12/2019 07:12:00 PM [facility] EDT Center Emergency H 01/11/2019 03:01:00 PM [facility] EDT Center Emergency H 01/08/2019 04:57:00 PM [facility] EDT Center Emergency H 01/01/2019 01:31:00 PM [facility] EDT Center Emergency H 12/30/2018 07:31:00 PM [facility] EDT Center Emergency H 12/29/2018 08:58:00 PM [facility] EDT Center Emergency H 12/28/2018 06:40:00 PM [facility] EDT Center Emergency H 12/26/2018 06:44:00 PM [facility] EDT Center Emergency Attender: Josue 12/25/2018 06:23:00 PM [facility] Andrea MDAdmitter: EDT Center Josue Mendez MD Emergency H 12/24/2018 10:43:00 PM [facility] EDT Center Emergency Attender: Josue 12/24/2018 03:17:00 PM [facility] Andrea MDAdmitter: EDT Center Josue Mendez MD Emergency H 12/23/2018 08:34:00 PM [facility] EDT Center Emergency H 12/23/2018 04:36:00 PM [facility] EDT Center Emergency H 12/22/2018 08:17:00 PM [facility] EDT Center Emergency H 12/22/2018 02:32:00 PM [facility] EDT Center Emergency H 12/21/2018 12:13:00 PM [facility] EDT Center Emergency H 12/20/2018 02:42:00 PM [facility] EDT Center Emergency H 12/19/2018 07:13:00 PM [facility] EDT Center Emergency H 12/18/2018 11:47:00 AM [facility] EDT Center Emergency H 12/17/2018 01:20:00 PM [facility] EDT Center Emergency H 12/17/2018 03:43:00 AM [facility] EDT Center Emergency H 12/16/2018 02:25:00 PM [facility] EDT Center Emergency H 12/15/2018 05:54:00 PM [facility] EDT Center Emergency Attender: Josue 12/13/2018 04:04:00 PM [facility] Andrea MDAdmitter: EDT Center Josue Mendez MD Emergency Attender: Josue H 12/12/2018 06:53:00 PM [facility] Andrea MDAdmitter: EDT Center Josue Mendez MD Emergency H 12/11/2018 01:33:00 PM [facility] EDT Center Emergency H 12/10/2018 07:23:00 PM [facility] EDT Center Emergency H 12/10/2018 12:15:00 AM [facility] EDT Center Emergency H 12/09/2018 12:06:00 PM [facility] EDT Center Emergency H 12/08/2018 02:50:00 PM [facility] EDT Center Emergency H 12/07/2018 08:06:00 PM [facility] EDT Center Emergency H 12/07/2018 02:39:00 PM [facility] EDT Center Emergency H 12/06/2018 03:23:00 PM [facility] EDT Center Emergency H 12/05/2018 06:29:00 PM [facility] EDT Center Emergency H 12/04/2018 09:28:00 PM [facility] EDT Center Emergency H 12/02/2018 05:09:00 PM [facility] EDT Center Emergency H 12/01/2018 07:13:00 PM [facility] EDT Center Emergency H 11/30/2018 06:20:00 PM [facility] [facility] EDT Center Emergency H 11/30/2018 03:26:00 AM [facility] EDT Center Emergency H 11/28/2018 10:53:00 PM [facility] EDT Center Emergency H 11/28/2018 02:16:00 PM [facility] EDT Center Emergency H 11/28/2018 01:18:00 AM [facility] EDT Center Emergency H 11/27/2018 03:46:00 PM [facility] EDT Center Emergency H 11/25/2018 07:03:00 PM [facility] EDT Center Emergency Attender: AGUILAR ED STAFF H 11/24/2018 03:51:00 PM [facility] PHYSICIANAdmitter: AGUILAR EDT Center ED STAFF PHYSICIAN Outpatient 11/24/2018 03:05:02 PM GS I [facility] admitted. Outpatient 11/24/2018 03:04:59 PM EDT [facility] ([facility]) Patient admitted. Outpatient 11/24/2018 03:02:27 PM EDT [facility] ([facility]) Patient admitted. Outpatient 11/24/2018 03:02:24 PM EDT [facility] ([facility]) Patient admitted. Outpatient 11/24/2018 02:57:08 PM EDT [facility] ([facility]) Patient admitted. Outpatient 11/24/2018 02:57:05 PM EDT [facility] ([facility]) Patient admitted. Emergency H 11/23/2018 05:23:00 PM [facility] EDT Center Emergency H 11/23/2018 02:44:00 AM [facility] EDT Center Emergency H 11/16/2018 07:20:00 PM [facility] EDT Center Emergency H 11/16/2018 12:18:00 AM [facility] EDT Center Emergency H 11/14/2018 07:38:00 PM [facility] EDT Center Emergency H 11/13/2018 04:17:00 PM [facility] EDT Center Emergency H 11/11/2018 05:59:00 PM [facility] EDT Center Emergency H 11/10/2018 09:24:00 PM [facility] EDT Center Emergency H 11/10/2018 02:11:00 PM [facility] EDT Center Emergency H 11/09/2018 01:34:00 PM [facility] EDT Center Emergency H 11/07/2018 06:07:00 PM [facility] EDT Center Emergency H 11/04/2018 05:14:00 PM [facility] EDT Center Emergency H 11/01/2018 12:50:00 PM [facility] EDT Center Emergency H 10/30/2018 01:01:00 PM [facility] EDT Center Emergency H 10/29/2018 11:57:00 PM [facility] EDT Center Emergency H 10/29/2018 01:10:00 PM [facility] EDT Center Emergency H 10/28/2018 12:06:00 PM [facility] EDT Center Emergency H 10/26/2018 06:31:00 PM [facility] EDT Center Emergency H 10/23/2018 05:15:00 PM [facility] EDT Center Emergency H-ER 10/23/2018 02:26:00 PM [facility] EDT Center Emergency H 10/22/2018 07:15:00 PM [facility] int [facility] EDT Center Emergency H 10/21/2018 07:34:00 PM Sa int [facility] EDT Center Emergency H 10/20/2018 04:27:00 PM Sa int [facility] EDT Center Emergency H 10/19/2018 01:11:00 PM Sa int [facility] EDT Center Emergency H 10/18/2018 06:42:00 PM [facility] EDT Center Emergency H 10/18/2018 12:27:00 AM Sa int [facility] EDT Center Emergency H 10/17/2018 03:47:00 PM [facility] int [facility] EDT Center Emergency H 10/16/2018 04:29:00 PM Sa int [facility] EDT Center Emergency H 10/14/2018 01:33:00 PM [facility] int [facility] EDT Center Emergency H 10/12/2018 09:40:00 PM [facility] EDT Center Emergency H 10/11/2018 06:15:00 PM [facility] EDT Center Emergency H 10/10/2018 06:01:00 PM [facility] EDT Center Emergency H 10/09/2018 03:55:00 PM [facility] EDT Center Emergency H 10/08/2018 03:15:00 PM [facility] EDT Center Emergency H 10/08/2018 02:44:00 PM [facility] EDT Center Emergency H 10/05/2018 07:50:00 PM [facility] EDT Center Emergency H 10/04/2018 07:11:00 AM [facility] EDT Center 10/04/2018 12:00:00 AM [facility] EDT - 09/27/2018 Center 12:00:00 AM EDT Emergency H 10/03/2018 04:15:00 PM Sa int [facility] EDT Center Emergency H 10/02/2018 06:31:00 PM [facility] EDT Center Emergency H 10/01/2018 08:40:00 PM Sa int [facility] EDT Center Emergency H 09/30/2018 10:33:00 PM Sa int [facility] EDT Center Emergency H 09/30/2018 12:05:00 PM [facility] int [facility] EDT Center Emergency H 09/29/2018 10:16:00 PM [facility] EDT Center Inpatient Attender: ELIANA Sage-HAL6 09/25/2018 04:01:00 PM [facility] EDT - 09/27/2018 Center ROBERTAttender: 12:08:00 PM EDT MARIA C LOMBARDI OAdmitter: ELIANA FAVIO ELIANAReferrer: ELIANA MONROY Emergency H 09/23/2018 05:10:00 PM [facility] EDT Center Emergency H 09/22/2018 08:14:00 PM [facility] EDT Center Emergency H 09/20/2018 06:16:00 PM [facility] EDT Center Emergency H 09/17/2018 09:51:00 PM [facility] EDT Center Emergency H 09/17/2018 07:14:00 PM [facility] EDT Center Emergency H 09/17/2018 03:33:00 PM [facility] EDT Center Emergency H 09/16/2018 07:34:00 PM [facility] EDT Center Emergency H-ER 09/16/2018 01:34:00 PM [facility] EDT Center Emergency H 09/15/2018 09:36:00 PM [facility] EDT Center Emergency H 09/14/2018 07:52:00 AM [facility] EDT Center Emergency H 09/13/2018 07:14:00 PM [facility] EDT Center Emergency H 09/12/2018 02:48:00 PM [facility] EDT Center Inpatient Attender: MARIA C Sage-HAL5 09/10/2018 03:23:00 PM [facility] GENO LOMBARDI EDT - 09/11/2018 nter OAdmitter: MARIA C 08:56:00 AM EDT GENO Velasquezferrer: MARIA C LOMBARDI O Emergency H 09/09/2018 03:25:00 PM [facility] EDT Center Emergency H-ER 09/08/2018 09:27:00 PM [facility] EDT Center Emergency H 09/07/2018 07:58:00 PM [facility] EDT Center Emergency H 09/05/2018 04:58:00 PM [facility] EDT Center Inpatient Attender: ARELI 09/01/2018 03:04:00 PM [facility] APELAttender: EDT - 09/05/2018 [facility] ERAdmitter: ARELI 01:15:00 PM EDT Center APELConsultant: ARELI SULLIVAN Emergency H 08/31/2018 11:58:00 AM [facility] EDT Center Emergency H-ER 08/30/2018 09:40:00 PM [facility] EDT Center Emergency H 08/28/2018 05:56:00 PM [facility] EDT Center Emergency H 08/24/2018 03:39:00 PM [facility] EDT Center Emergency H 08/24/2018 03:32:00 PM [facility] EDT Center Emergency H-ER 08/23/2018 07:47:00 PM [facility] EDT Center Emergency H 08/23/2018 05:25:00 PM [facility] EDT Center Emergency H 08/22/2018 06:00:00 PM [facility] EDT Center Emergency H 08/19/2018 04:48:00 PM [facility] EST Center Emergency H 08/18/2018 03:07:00 PM [facility] EST Center Emergency H 08/17/2018 10:45:00 PM [facility] EST Center Emergency H 08/17/2018 02:49:00 PM [facility] EST Center Emergency H 08/16/2018 03:37:00 PM [facility] EST Center Emergency H 08/14/2018 08:53:00 PM [facility] EST Center Emergency H 08/12/2018 06:50:00 PM [facility] EST Center Emergency H 08/11/2018 09:12:00 PM [facility] EST Center Emergency H 08/11/2018 04:33:00 PM [facility] EST Center Emergency H 08/10/2018 01:21:00 PM [facility] EST Center Emergency H 08/09/2018 07:48:00 PM [facility] EST Center Emergency H 08/09/2018 02:36:00 PM [facility] EST Center Emergency H 08/08/2018 03:17:00 PM [facility] EST Center Emergency H 08/07/2018 12:22:00 PM [facility] Emergency H 08/05/2018 02:03:00 PM [facility] Emergency 08/02/2018 03:01:00 PM [facility] Emergency H 07/30/2018 03:49:00 PM [facility] Emergency H 07/30/2018 12:40:00 PM [facility] Emergency 07/01/2018 05:07:00 AM [facility] Emergency Admitter: Josue 06/11/2018 04:09:00 PM [facility] Vaccine Date Status Description Data Source(s) Tdap 09/17/2019 completed [facility] 08:17:00 PM Medical Center EDT Note that this vaccine 08/19/2019 completed [facility] name has changed. See 08:48:00 PM Medic al Center also Td (adult). It is EST not adsorbed. Note that this vaccine 08/19/2019 completed [facility] name has changed. See 08:48:00 PM Medic al Center also Td (adult). It is EST not adsorbed. Note that this vaccine 06/28/2019 completed [facility] name has changed. See 12:42:00 AM Medic al Center also Td (adult). It is EST not adsorbed. Tdap 09/10/2018 completed [facility] 05:49:00 PM Medical Center EDT Tdap 09/10/2018 completed [facility] 05:49:00 PM Medical Center EDT Tdap 09/10/2018 completed [facility] 05:49:00 PM Medical Center EDT Tdap 09/10/2018 completed [facility] 05:49:00 PM Medical Center EDT Tdap 09/10/2018 completed [facility] 05:49:00 PM Medical Center EDT Tdap 09/10/2018 completed [facility] 05:49:00 PM Medical Center EDT Tdap 09/10/2018 completed [facility] 05:49:00 PM Medical Center EDT Note that this vaccine 09/10/2018 completed [facility] name has changed. See 05:17:00 PM Medic al Center also Td (adult). It is EDT not adsorbed. Note that this vaccine 09/10/2018 completed [facility] name has changed. See 05:17:00 PM [facility] also Td (adult). It is EDT not adsorbed. Note that this vaccine 09/10/2018 completed [facility] name has changed. See 05:17:00 PM [facility] also Td (adult). It is EDT not adsorbed. influenza virus 03/24/2014 completed [facility] inactivated 09:58:00 AM vaccine, [facility] [place] pneumococcal 03/24/2014 completed pneumococcal [facility] polysaccharide PPV23 09:57:00 AM 23-polyvalent vaccin e [facility] [place] Medications Medication Brand Start Product Dose Route Administrative Pharmacy [facility] Indications Reaction Description Data Name Date Form Instructions Instructions Source(s) ferrous Ferrou ORAL complet Ferrous Sa int sulfate 325 s 2019 Table ed Sulfate - Vi ncents MG Delayed Sulfat 12:00: t 325 MG ORA L Hospital Release e - 00 AM Tablet, Oral Tablet 325 MG EDT Enteric ORAL Coated Tablet , Enteri c Coated Vitamin B Vitami ORAL complet Vitamin B12 [facility] 12 1 MG n B12 2019 Table ed AvPak - 1000 Vi ncents Oral Tablet AvPak 12:00: t MCG ORAL H ospital - 1000 00 AM Tablet MCG EDT ORAL Tablet Amlodipine Norvas ORAL complet Norvasc - 5 [facility] 5 MG Oral c - 5 2019 Table ed MG ORAL Nestor nts Tablet MG 12:00: t Tablet Hospital [Norvasc] ORAL 00 AM Tablet EDT 0.9% NaCl 0.9% 999 UNK active 0.9% NaCl [facility] IV NaCl 2020 mL IV 1000 mL; [facility] IV 05:17: IV rate: Health 42 PM Bolus over Care EST 30 minutes Corporati o n Medication administered onsite 0.9% 0.9% 08/16/2019 1000 mL UNK active 0.9% [facility] NaCl IV NaCl IV 05:17:42 PM IV 1000 mL; [facility] EST IV rate: Care Bolus over Corporati on 30 minutes Medication administered onsite No Known drug or 09/01/2018 completed No known Nuvance Medications medication 04:54:52 PM medications Health - EDT [facility] Azithromycin azithromycin 1 ora discontinued azithromycin [place] 250 MG Oral cap [facility] Capsule (s) Health [Zithromax] Care azithromycin Corpora debbie n gabapentin 400 1 completed [facility] mg [place] CapsuleDirecti Medic al ons: 1 capsule Cente r oral three times a day Chlordiazepoxi chlordiazepox 1 ora discontinued chlordiazepoxi [facility] [place] Hydrochloride (s) Health 25 MG Oral Care Tablet Corporatio [Libritabs] n chlordiazepoxi de Amlodipine 10 amLODIPine 1 completed NorvASC [facility] MG Oral Tablet (NorvASC) 10 [place] [Norvasc] mg Tablet, Medi larry amLODIPine Ordered By: Jaymie shin (NorvASC) 10 [place] mg Tablet, Du, Ordered By: MDDirections: [place] Sandy, 1 tablet oral MDDirections: daily 1 tablet oral daily ferrous ferrous 1 completed Ronald t sulfate 325 MG sulfate 325 [place] Delayed mg (65 mg Medical Release Oral iron) Center Tablet ferrous tablet,delaye sulfate 325 mg d release (65 mg iron) (/EC), tablet,delayed Ordered By: milly Reid (/EC)Du, Ordered By: MDDirections: [place] Sandy, 1 tablet oral MDDirections: three times a 1 tablet oral day three times a day Acetaminophen acetaminophen 2 completed [facility] 325 MG Oral 325 mg Ayaz s Tablet Tablet, Medical acetaminophen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 ">Mean Medical [Entitic mass] Corposcular Center by Automated Hemoglobin count </content>26.8 PG<content styleCode="Ital ics"> (26.0-34.0 PG)</content> Erythrocyte 11.5-14. Above high <content Saint distribution 5 normal styleCode="Amberly [facility] width [Ratio] by ">Red Cell Medical Automated count Distribution Center Width </content>18.2 % H<content styleCode="Ital ics"> (11.5-14.5 %)</content> Erythrocyte mean 80.0-100 <content Saint corpuscular .0 styleCode="Bold [facility] volume [Entitic ">Mean Medical volume] by Corpuscular Center Automated count Volume </content>86.5 FL<content styleCode="Ital ics"> (80.0-100.0 FL)</content> UNK 0 <content Saint styleCode="Bold [facility] ">Nucleated Red Medical Blood Cell Center </content>0.0 /100<content styleCode="Ital ics"> (0 /100)</content> UNK 0.0 <content Saint styleCode="Bold [place] ">Nucleated Red Medical Blood Cell Center Count </content>0.00 KCUMM<content styleCode="Ital ics"> (0.0 KCUMM)</content > Platelets 130-400 <content Saint [#/volume] in styleCode="[facility] [place] Blood by ">Platelet Medical Automated count Count Center </content>263 KCUMM<content styleCode="Ital ics"> (130-400 KCUMM)</content > Platelet mean 8.0-11.0 <content Saint volume [Entitic styleCode="Bold [facility] volume] in Blood ">Mean Platelet Medical by Automated Volume Center count </content>9.0 FL<content styleCode="Ital ics"> (8.0-11.0 FL)</content> ID Date Data Source GFR(Creatinine).[id number] 12/30/2019 11:00:00 PM EDT [facility] 0-0400 Name Value Range Interpretation Code Description Data Pebbles rce(s) Supporting Document(s ) UNK > 60 <content [facility] styleCode="Bold"> Medical Cent er EGFR </content>144 GFR<content styleCode="Italic s"> (> 60 GFR)</content> ID Date Data Source CHMROUTINECCDA.[id number] 12/30/2019 11:00:00 PM EDT [facility] -0400 Name Value Range Interpretation Description Data Sup porting Code Source(s) Document(s ) Magnesium 1.6-2.3 Below low normal <content Saint [Mass/volume] styleCode="[facility] in Serum or d">Magnesium Medical Plasma </content>1.2 Center MG/DL L<content styleCode="Zakia lics"> (1.6-2.3 MG/DL)</conten t> Phosphate 2.5-4.5 <content Saint [Mass/volume] styleCode="Mac [place] in Serum or d">Phosphorus Medical Plasma </content>4.0 Center MG/DL<content styleCode="Zakia lics"> (2.5-4.5 MG/DL)</conten t> ID Date Data Source [facility].[id number] 12/30/2019 11:00:00 PM EDT [facility] Name Value Range Interpretation Description Data Sup porting Code Source(s) Document(s ) Sodium 137-145 <content Saint [Moles/volume] styleCode="Mac [place] in Serum or d">Sodium Medical Plasma </content>140 Center MEQ/L<content styleCode="Zakia lics"> (137-145 MEQ/L)</conten t> Chloride 98-107 <content Saint [Moles/volume] styleCode="Mac [place] in Serum or d">Chloride Medical Plasma </content>101 Center MEQ/L<content styleCode="Zakia lics"> (98-107 MEQ/L)</conten t> Potassium 3.5-5.3 Below lower panic <content Saint [Moles/volume] limits styleCode="Mac [place] in Serum or d">Potassium Medical Plasma </content><con Center tent styleCode="Mac d">2.9 MEQ/L LL</content><c ontent styleCode="Zakia lics"> (3.5-5.3 MEQ/L)</conten t> Carbon 22-30 <content Saint dioxide, total styleCode="[facility] [Moles/volume] d">Carbon Medical in Serum or Dioxide Center Plasma </content>28 MEQ/L<content styleCode="Zakia lics"> (22-30 MEQ/L)</conten t> Creatinine 0.5-1.3 <content Saint [Mass/volume] styleCode="[facility] [place] in Serum or d">Creatinine Medical Plasma </content>0.6 Center MG/DL<content styleCode="Zakia lics"> (0.5-1.3 MG/DL)</conten t> UNK 9-20 Below low normal <content Saint styleCode="Mac [facility] d">BUN Medical </content>7 Center MG/DL L<content styleCode="Zakia lics"> (9-20 MG/DL)</conten t> Glucose 74-106 <content Saint [Mass/volume] styleCode="[facility] [place] in Serum or d">Glucose Medical Plasma </content>102 Center MG/DL<content styleCode="Zakia lics"> (74-106 MG/DL)</conten t> Calcium 8.4-10.2 <content Saint [Mass/volume] styleCode="[facility] in Serum or d">Calcium Medical Plasma </content>8.5 Center MG/DL<content styleCode="Zakia lics"> (8.4-10.2 MG/DL)</conten t> UNK > 60 <content Saint styleCode="Mac Isahan d">EGFR Medical </content>144 Center GFR<content styleCode="Zakia lics"> (> 60 GFR)</content> ID Date Data Source HematologyRou.[id number] 12/25/2019 12:50:00 AM EDT [facility] 0400 Name Value Range Interpretation Description Data Sup porting Code Source(s) Document(s ) Leukocytes 4.4-11.0 <content Saint [#/volume] in styleCode="[facility]mber[facility] Blood by ">White Blood Medical Automated count Cell Count Center </content>5.11 KCUMM<content styleCode="Ital ics"> (4.4-11.0 KCUMM)</content > Erythrocytes 4.4-5.9 Below low normal <content Saint [#/volume] in styleCode="[facility] [place] Blood by ">Red Blood Medical Automated count Cell Count Center </content>3.37 MCUMM L<content styleCode="Ital ics"> (4.4-5.9 MCUMM)</content > Hematocrit 41.0-53. Below low normal <content Saint [Volume 0 styleCode="[facility]old [facility] Fraction] of ">Hematocrit Medical Blood by </content>29.4 Center Automated count % L<content styleCode="Ital ics"> (41.0-53.0 %)</content> Erythrocyte mean 80.0-100 <content Saint corpuscular .0 styleCode="Bold [place] volume [Entitic ">Mean Medical volume] by Corpuscular Center Automated count Volume </content>87.2 FL<content styleCode="Ital ics"> (80.0-100.0 FL)</content> Hemoglobin 13.5-17. Below low normal <content Saint [Mass/volume] in 5 styleCode="Bold [place] Blood ">Hemoglobin Medical </content>9.2 Center G/DL L<content styleCode="Ital ics"> (13.5-17.5 G/DL)</content> Erythrocyte mean 32.0-37. Below low normal <content [facility] corpuscular 0 styleCode="[facility] [place] hemoglobin ">Mean Corpus. Medical concentration Hgb Center [Mass/volume] by Concentration Automated count (MCHC) </content>31.3 G/DL L<content styleCode="Ital ics"> (32.0-37.0 G/DL)</content> Erythrocyte mean 26.0-34. <content Saint corpuscular 0 styleCode="[facility] [place] hemoglobin ">Mean Medical [Entitic mass] Corposcular Center by Automated Hemoglobin count </content>27.3 PG<content styleCode="Ital ics"> (26.0-34.0 PG)</content> Platelets 130-400 <content Saint [#/volume] in styleCode="[facility] [place] Blood by ">Platelet Medical Automated count Count Center </content>186 KCUMM<content styleCode="Ital ics"> (130-400 KCUMM)</content > Erythrocyte 11.5-14. Above high <content Saint distribution 5 normal styleCode="[facility] width [Ratio] by ">Red Cell Medical Automated count Distribution Center Width </content>18.4 % H<content styleCode="Ital ics"> (11.5-14.5 %)</content> Platelet mean 8.0-11.0 <content Saint volume [Entitic styleCode="Bold [place] volume] in Blood ">Mean Platelet Medical by Automated Volume Center count </content>9.1 FL<content styleCode="Ital ics"> (8.0-11.0 FL)</content> UNK 0 <content Saint styleCode="Bold [place] ">Nucleated Red Medical Blood Cell Center </content>0.0 /100<content styleCode="Ital ics"> (0 /100)</content> UNK 0.0 <content Saint styleCode="Bold [place] ">Nucleated Red Medical Blood Cell Center Count </content>0.00 KCUMM<content styleCode="Ital ics"> (0.0 KCUMM)</content > ID Date Data Source GFR(Creatinine).[id number] 12/25/2019 12:50:00 AM EDT [facility] 0-0400 Name Value Range Interpretation Code Description Data Pebbles rce(s) Supporting Document(s ) UNK > 60 <content [facility] styleCode="Bold"> Medical Cent er EGFR </content>178 GFR<content styleCode="Italic s"> (> 60 GFR)</content> ID Date Data Source [employer].[id number] 12/25/2019 12:50:00 AM EDT [facility] -0400 Name Value Range Interpretation Description Data Sup porting Code Source(s) Document(s ) Troponin < 0.034 <content Saint I.cardiac styleCode="[facility] [Mass/volume ">Troponin I Medical ] in Serum </content>< Center or Plasma 0.012 NG/ML<content styleCode="Ital ics"> (< 0.034 NG/ML)</content > ID Date Data Source [facility].[id number] 12/25/2019 12:50:00 AM EDT [facility] Name Value Range Interpretation Description Data Sup porting Code Source(s) Document(s ) Sodium 137-145 <content Saint [Moles/volume] styleCode="Mac [place] in Serum or d">Sodium Medical Plasma </content>139 Center MEQ/L<content styleCode="Zakia lics"> (137-145 MEQ/L)</conten t> Potassium 3.5-5.3 Below lower panic <content Saint [Moles/volume] limits styleCode="[facility] [place] in Serum or d">Potassium Medical Plasma </content><con Center tent styleCode="Mac d">2.5 MEQ/L LL</content><c ontent styleCode="Zakia lics"> (3.5-5.3 MEQ/L)</conten t> UNK 9-20 Below low normal <content Saint styleCode="[facility] [place] d">BUN Medical </content>4 Center MG/DL L<content styleCode="Zakia lics"> (9-20 MG/DL)</conten t> Carbon 22-30 <content Saint dioxide, total styleCode="[facility] [Moles/volume] d">Carbon Medical in Serum or Dioxide Center Plasma </content>30 MEQ/L<content styleCode="Zakia lics"> (22-30 MEQ/L)</conten t> Chloride 98-107 <content [facility] [Moles/volume] styleCode="Mac Ishaan in Serum or d">Chloride Medical Plasma </content>102 Center MEQ/L<content styleCode="Zakia lics"> (98-107 MEQ/L)</conten t> Glucose 74-106 Above high normal <content [facility] [Mass/volume] styleCode="Mac Ish[place] in Serum or d">Glucose Medical Plasma </content>109 Center MG/DL H<content styleCode="Zakia lics"> (74-106 MG/DL)</conten t> Creatinine 0.5-1.3 <content [facility] [Mass/volume] styleCode="Mca Jacomes in Serum or d">Creatinine Medical Plasma </content>0.5 Center MG/DL<content styleCode="Zakia lics"> (0.5-1.3 MG/DL)</conten t> UNK > 60 <content [facility] styleCode="Mac [facility] d">EGFR Medical </content>178 Center GFR<content styleCode="Zakia lics"> (> 60 GFR)</content> Calcium 8.4-10.2 <content [facility] [Mass/volume] styleCode="Mac Jacomes in Serum or d">Calcium Medical Plasma </content>8.4 Center MG/DL<content styleCode="Zakia lics"> (8.4-10.2 MG/DL)</conten t> ID Date Data Source HematologyRou.[id number] 12/03/2019 08:37:00 PM EDT [facility] 0400 Name Value Range Interpretation Description Data Sup porting Code Source(s) Document(s ) Erythrocytes 4.4-5.9 Below low normal <content Saint [#/volume] in styleCode="Bold Ish[place] Blood by ">Red Blood Medical Automated count Cell Count Center </content>3.44 MCUMM L<content styleCode="Ital ics"> (4.4-5.9 MCUMM)</content > Leukocytes 4.4-11.0 <content [facility] [#/volume] in styleCode="Bold [place] Blood by ">White Blood Medical Automated count Cell Count Center </content>5.50 KCUMM<content styleCode="Ital ics"> (4.4-11.0 KCUMM)</content > Erythrocyte mean 32.0-37. Below low normal <content [facility] corpuscular 0 styleCode="Bold Ishaan hemoglobin ">Mean Corpus. Medical concentration Hgb Center [Mass/volume] by Concentration Automated count (MCHC) </content>31.1 G/DL L<content styleCode="Ital ics"> (32.0-37.0 G/DL)</content> Erythrocyte mean 80.0-100 <content [facility] corpuscular .0 styleCode="Bold Ishaan volume [Entitic ">Mean Medical volume] by Corpuscular Center Automated count Volume </content>87.8 FL<content styleCode="Ital ics"> (80.0-100.0 FL)</content> Hematocrit 41.0-53. Below low normal <content [facility] [Volume 0 styleCode="Bold Ish[place] Fraction] of ">Hematocrit Medical Blood by </content>30.2 Center Automated count % L<content styleCode="Ital ics"> (41.0-53.0 %)</content> Erythrocyte mean 26.0-34. <content [facility] corpuscular 0 styleCode="Bold Ish[place] hemoglobin ">Mean Medical [Entitic mass] Corposcular Center by Automated Hemoglobin count </content>27.3 PG<content styleCode="Ital ics"> (26.0-34.0 PG)</content> Hemoglobin 13.5-17. Below low normal <content [facility] [Mass/volume] in 5 styleCode="Bold Ish[place] Blood ">Hemoglobin Medical </content>9.4 Center G/DL L<content styleCode="Ital ics"> (13.5-17.5 G/DL)</content> Platelets 130-400 <content Saint [#/volume] in styleCode="Bold Ish[place] Blood by ">Platelet Medical Automated count Count Center </content>218 KCUMM<content styleCode="Ital ics"> (130-400 KCUMM)</content > Platelet mean 8.0-11.0 <content Saint volume [Entitic styleCode="Bold Ishaan volume] in Blood ">Mean Platelet Medical by Automated Volume Center count </content>9.1 FL<content styleCode="Ital ics"> (8.0-11.0 FL)</content> UNK 1.6-7.3 <content Saint styleCode="Bold Ish[place] ">Neutrophil Medical Count Center </content>2.58 KCUMM<content styleCode="Ital ics"> (1.6-7.3 KCUMM)</content > Erythrocyte 11.5-14. Above high <content [facility] distribution 5 normal styleCode="Bold Ishaan width [Ratio] by ">Red Cell Medical Automated count Distribution Center Width </content>20.0 % H<content styleCode="Ital ics"> (11.5-14.5 %)</content> Neutrophils 36-66 <content Saint [#/volume] in styleCode="Bold [place] Blood by ">Neutrophil Medical Automated count </content>47.0 Center %<content styleCode="Ital ics"> (36-66 %)</content> UNK 0.2-0.9 <content [facility] styleCode="Bold Ish[place] ">Monocyte Medical Count Center </content>0.48 KCUMM<content styleCode="Ital ics"> (0.2-0.9 KCUMM)</content > Lymphocytes 24.0-44. <content Saint [#/volume] in 0 styleCode="Bold Ish[place] Blood by ">Lymphocyte Medical Automated count </content>38.5 Center %<content styleCode="Ital ics"> (24.0-44.0 %)</content> Monocytes 3.0-10.0 <content [facility] [#/volume] in styleCode="Bold [place] Blood by ">Monocyte Medical Automated count </content>8.7 Center %<content styleCode="Ital ics"> (3.0-10.0 %)</content> UNK 1.0-4.8 <content Saint styleCode="Bold Ish[place] ">Lymphocyte Medical Count Center </content>2.12 KCUMM<content styleCode="Ital ics"> (1.0-4.8 KCUMM)</content > Eosinophils 0-5.0 <content Saint [#/volume] in styleCode="Bold Ish[place] Blood by ">Eosinophil Medical Automated count </content>4.7 Center %<content styleCode="Ital ics"> (0-5.0 %)</content> UNK 0 <content Saint styleCode="Bold Ish[place] ">Nucleated Red Medical Blood Cell Center </content>0.0 /100<content styleCode="Ital ics"> (0 /100)</content> UNK 0.0-0.3 <content Saint styleCode="Bold Ish[place] ">Basophil Medical Count Center </content>0.04 KCUMM<content styleCode="Ital ics"> (0.0-0.3 KCUMM)</content > UNK 0-0.1 <content Saint styleCode="Bold Ishaan ">Immature Medical Granulocyte Center Count </content>0.02 KCUMM<content styleCode="Ital ics"> (0-0.1 KCUMM)</content > UNK 0.0 <content Saint styleCode="Bold Ish[place] ">Nucleated Red Medical Blood Cell Center Count </content>0.00 KCUMM<content styleCode="Ital ics"> (0.0 KCUMM)</content > UNK 0.0-0.6 <content Saint styleCode="Bold Ish[place] ">Eosinophil Medical Count Center </content>0.26 KCUMM<content styleCode="Ital ics"> (0.0-0.6 KCUMM)</content > Basophils 0.0-1.0 <content [facility] [#/volume] in styleCode="Bold Ish[place] Blood by ">Basophil Medical Automated count </content>0.7 Center %<content styleCode="Ital ics"> (0.0-1.0 %)</content> UNK NORMAL <content Saint styleCode="Bold Ishaan ">Anisocyte Medical </content>SLIGH Center T <content styleCode="Ital ics"> (NORMAL )</content> UNK NORMAL <content [facility] styleCode="Bold Ishaan ">Platelet Medical Estimate Center </content>ASYA L <content styleCode="Ital ics"> (NORMAL )</content> UNK < 1 <content Saint styleCode="Bold Ish[place] ">Immature Medical Granulocyte Center Ratio </content>0.4 %<content styleCode="Ital ics"> (< 1 %)</content> UNK NORMAL <content Saint styleCode="Bold Ishaan ">Hypochromia Medical </content>MODER Center ATE <content styleCode="Ital ics"> (NORMAL )</content> ID Date Data Source GFR(Creatinine).[id number] 12/03/2019 08:37:00 PM EDT [facility] 0-0400 Name Value Range Interpretation Code Description Data Pebbles rce(s) Supporting Document(s ) UNK > 60 <content [facility] styleCode="Bold"> Medical Cent er EGFR </content>178 GFR<content styleCode="Italic s"> (> 60 GFR)</content> ID Date Data Source REMIGIO.[id number] 12/03/2019 08:37:00 PM EDT [facility] -0400 Name Value Range Interpretation Description Data Sup porting Code Source(s) Document(s ) Magnesium 1.6-2.3 Below low normal <content [facility] [Mass/volume] styleCode="Mac Ishaan in Serum or d">Magnesium Medical Plasma </content>1.5 Center MG/DL L<content styleCode="Zakia lics"> (1.6-2.3 MG/DL)</conten t> ID Date Data Source [facility].[id number] 12/03/2019 08:37:00 PM EDT [facility] Name Value Range Interpretation Description Data Sup porting Code Source(s) Document(s ) Sodium 137-145 <content [facility] [Moles/volume] styleCode="Mac Ishaan in Serum or d">Sodium Medical Plasma </content>143 Center MEQ/L<content styleCode="Zaika lics"> (137-145 MEQ/L)</conten t> Carbon 22-30 <content [facility] dioxide, total styleCode="Amc Ishaan [Moles/volume] d">Carbon Medical in Serum or Dioxide Center Plasma </content>29 MEQ/L<content styleCode="Zakia lics"> (22-30 MEQ/L)</conten t> Glucose 74-106 Above high normal <content [facility] [Mass/volume] styleCode="Mac Ishaan in Serum or d">Glucose Medical Plasma </content>114 Center MG/DL H<content styleCode="Zakia lics"> (74-106 MG/DL)</conten t> Potassium 3.5-5.3 Below lower panic <content [facility] [Moles/volume] limits styleCode="Mac Ishaan in Serum or d">Potassium Medical Plasma </content><con Center tent styleCode="Mac d">3.0 MEQ/L LL</content><c ontent styleCode="Zakia lics"> (3.5-5.3 MEQ/L)</conten t> Chloride 98-107 <content [facility] [Moles/volume] styleCode="Mac Ishaan in Serum or d">Chloride Medical Plasma </content>105 Center MEQ/L<content styleCode="Zakia lics"> (98-107 MEQ/L)</conten t> UNK 9-20 Below low normal <content [facility] styleCode="Mac Ishaan d">BUN Medical </content>8 Center MG/DL L<content styleCode="Zakia lics"> (9-20 MG/DL)</conten t> Creatinine 0.5-1.3 <content [facility] [Mass/volume] styleCode="Mac Ishaan in Serum or d">Creatinine Medical Plasma </content>0.5 Center MG/DL<content styleCode="Zakia lics"> (0.5-1.3 MG/DL)</conten t> Calcium 8.4-10.2 <content [facility] [Mass/volume] styleCode="Mac Ishaan in Serum or d">Calcium Medical Plasma </content>8.5 Center MG/DL<content styleCode="Zakia lics"> (8.4-10.2 MG/DL)</conten t> UNK > 60 <content Saint styleCode="Mac Ishaan d">EGFR Medical </content>178 Center GFR<content styleCode="Zakia lics"> (> 60 GFR)</content> ID Date Data Source [id number] 11/27/2019 11:55:00 AM EDT [facility] Name Value Range Interpretation Description Data Sup porting Code Source(s) Document(s ) SARS [facility] CORONAVIRUS 2 RNA This lab was ordered by [facility] and reported by [facility]. ID Date Data Source Liver 11/25/2019 12:40:00 PM EDT [facility] Profile.[id number] Name Value Range Interpretation Description Data Sup porting Code Source(s) Document(s ) Albumin <content [facility] [Mass/volume] in styleCode="Bold"> Stephan hs Serum or Plasma Albumin Medical </content>Test Center not performed. G/DL (Reference Range: not available)
Aspartate <content Saint aminotransferase styleCode="Bold"> Setphan hs [Enzymatic Aspartate Medical activity/volume] Aminotransferase Center in Serum or Plasma (AST) </content>Test not performed. IU/L (Reference Range: not available)
Alanine <content [facility] aminotransferase styleCode="Bold"> Stephan hs [Enzymatic Alanine Medical activity/volume] Aminotransferase Center in Serum or Plasma (ALT) </content>Test not performed. IU/L (Reference Range: not available)
Alkaline <content [facility] phosphatase styleCode="Bold"> Ish[place] [Enzymatic Alkaline Medical activity/volume] Phosphatase (ALP) Cente r in Serum or Plasma </content>Test not performed. IU/L (Reference Range: not available)
Bilirubin.total <content [facility] [Mass/volume] in styleCode="Bold"> Stephan hs Serum or Plasma Bilirubin Total Medical </content>Test Center not performed. MG/DL (Reference Range: not available)
ID Date Data Source HematologyRou.[id number] 11/25/2019 12:40:00 PM EDT [facility] 0400 Name Value Range Interpretation Description Data Sup porting Code Source(s) Document(s ) Erythrocytes 4.4-5.9 Below low normal <content [facility] [#/volume] in styleCode="Bold Ishaan Blood by ">Red Blood Medical Automated count Cell Count Center </content>3.38 MCUMM L<content styleCode="Ital ics"> (4.4-5.9 MCUMM)</content > Hemoglobin 13.5-17. Below low normal <content Saint [Mass/volume] in 5 styleCode="Bold Ishaan Blood ">Hemoglobin Medical </content>9.2 Center G/DL L<content styleCode="Ital ics"> (13.5-17.5 G/DL)</content> Leukocytes 4.4-11.0 <content [facility] [#/volume] in styleCode="Bold Ishaan Blood by ">White Blood Medical Automated count Cell Count Center </content>5.46 KCUMM<content styleCode="Ital ics"> (4.4-11.0 KCUMM)</content > Hematocrit 41.0-53. Below low normal <content [facility] [Volume 0 styleCode="Bold Ishaan Fraction] of ">Hematocrit Medical Blood by </content>29.5 Center Automated count % L<content styleCode="Ital ics"> (41.0-53.0 %)</content> Erythrocyte mean 80.0-100 <content [facility] corpuscular .0 styleCode="Bold Ishaan volume [Entitic ">Mean Medical volume] by Corpuscular Center Automated count Volume </content>87.3 FL<content styleCode="Ital ics"> (80.0-100.0 FL)</content> Erythrocyte mean 26.0-34. <content [facility] corpuscular 0 styleCode="Bold Ishaan hemoglobin ">Mean Medical [Entitic mass] Corposcular Center by Automated Hemoglobin count </content>27.2 PG<content styleCode="Ital ics"> (26.0-34.0 PG)</content> Erythrocyte 11.5-14. Above high <content [facility] distribution 5 normal styleCode="Bold Ishaan width [Ratio] by ">Red Cell Medical Automated count Distribution Center Width </content>21.5 % H<content styleCode="Ital ics"> (11.5-14.5 %)</content> Erythrocyte mean 32.0-37. Below low normal <content [facility] corpuscular 0 styleCode="Bold Ishaan hemoglobin ">Mean Corpus. Medical concentration Hgb Center [Mass/volume] by Concentration Automated count (MCHC) </content>31.2 G/DL L<content styleCode="Ital ics"> (32.0-37.0 G/DL)</content> Lymphocytes 24.0-44. <content Saint [#/volume] in 0 styleCode="Bold Ishaan Blood by ">Lymphocyte Medical Automated count </content>28.9 Center %<content styleCode="Ital ics"> (24.0-44.0 %)</content> Neutrophils 36-66 <content Saint [#/volume] in styleCode="Bold Ishaan Blood by ">Neutrophil Medical Automated count </content>59.2 Center %<content styleCode="Ital ics"> (36-66 %)</content> UNK 1.6-7.3 <content Saint styleCode="Bold Ishaan ">Neutrophil Medical Count Center </content>3.23 KCUMM<content styleCode="Ital ics"> (1.6-7.3 KCUMM)</content > Platelet mean 8.0-11.0 <content Saint volume [Entitic styleCode="Bold Ishaan volume] in Blood ">Mean Platelet Medical by Automated Volume Center count </content>9.1 FL<content styleCode="Ital ics"> (8.0-11.0 FL)</content> Platelets 130-400 <content Saint [#/volume] in styleCode="Bold Ishaan Blood by ">Platelet Medical Automated count Count Center </content>337 KCUMM<content styleCode="Ital ics"> (130-400 KCUMM)</content > UNK 0.2-0.9 <content Saint styleCode="Bold Ishaan ">Monocyte Medical Count Center </content>0.30 KCUMM<content styleCode="Ital ics"> (0.2-0.9 KCUMM)</content > UNK 1.0-4.8 <content Saint styleCode="Bold Ishaan ">Lymphocyte Medical Count Center </content>1.58 KCUMM<content styleCode="Ital ics"> (1.0-4.8 KCUMM)</content > Monocytes 3.0-10.0 <content Saint [#/volume] in styleCode="Bold Ishaan Blood by ">Monocyte Medical Automated count </content>5.5 Center %<content styleCode="Ital ics"> (3.0-10.0 %)</content> Eosinophils 0-5.0 <content Saint [#/volume] in styleCode="Bold Ishaan Blood by ">Eosinophil Medical Automated count </content>4.9 Center %<content styleCode="Ital ics"> (0-5.0 %)</content> UNK 0 <content Saint styleCode="Bold Ishaan ">Nucleated Red Medical Blood Cell Center </content>0.0 /100<content styleCode="Ital ics"> (0 /100)</content> Basophils 0.0-1.0 Above high <content Saint [#/volume] in normal styleCode="Bold Ishaan Blood by ">Basophil Medical Automated count </content>1.1 % Center H<content styleCode="Ital ics"> (0.0-1.0 %)</content> UNK 0.0-0.6 <content Saint styleCode="Bold Ishaan ">Eosinophil Medical Count Center </content>0.27 KCUMM<content styleCode="Ital ics"> (0.0-0.6 KCUMM)</content > UNK 0.0 <content Saint styleCode="Bold Ishaan ">Nucleated Red Medical Blood Cell Center Count </content>0.00 KCUMM<content styleCode="Ital ics"> (0.0 KCUMM)</content > UNK 0.0-0.3 <content Saint styleCode="Bold Ishaan ">Basophil Medical Count Center </content>0.06 KCUMM<content styleCode="Ital ics"> (0.0-0.3 KCUMM)</content > UNK NORMAL <content Saint styleCode="Bold Ishaan ">Platelet Medical Estimate Center </content>ASYA L <content styleCode="Ital ics"> (NORMAL )</content> UNK < 1 <content Saint styleCode="Bold Ishaan ">Immature Medical Granulocyte Center Ratio </content>0.4 %<content styleCode="Ital ics"> (< 1 %)</content> UNK 0-0.1 <content Saint styleCode="Bold Ishaan ">Immature Medical Granulocyte Center Count </content>0.02 KCUMM<content styleCode="Ital ics"> (0-0.1 KCUMM)</content > UNK NORMAL <content Saint styleCode="Bold Ishaan ">Polychromasia Medical </content>SLIGH Center T <content styleCode="Ital ics"> (NORMAL )</content> UNK NORMAL <content Saint styleCode="Bold Ishaan ">RBC Medical Morphology Center </content>ABNOR MAL <content styleCode="Ital ics"> (NORMAL )</content> UNK NORMAL <content Saint styleCode="Bold Ishaan ">Macrocyte Medical </content>SLIGH Center T <content styleCode="Ital ics"> (NORMAL )</content> UNK NORMAL <content Saint styleCode="Bold Ishaan ">Microcyte Medical </content>[facility] Center T <content styleCode="Ital ics"> (NORMAL )</content> UNK NORMAL <content Saint styleCode="Bold Ishaan ">Hypochromia Medical </content>[facility] T <content styleCode="Ital ics"> (NORMAL )</content> ID Date Data Source GFR(Creatinine).[id number] 11/25/2019 12:40:00 PM EDT [facility] 0-0400 Name Value Range Interpretation Code Description Data Pebbles rce(s) Supporting Document(s ) UNK <content [facility] styleCode="Bold"> Medical Cent er EGFR </content>Test not performed. GFR (Reference Range: not available)
ID Date Data Source Coagulation 11/25/2019 12:40:00 PM [facility] Rout.[id number] EDT Name Value Range Interpretation Description Data Sup porting Code Source(s) Document(s ) UNK 9.0-13.0 <content Saint styleCode="Bold" Ish[place] >Protime Medical </content>11.9 Center SEC<content styleCode="Itali cs"> (9.0-13.0 SEC)</content> INR in 0.80-1.2 <content Saint Platelet poor 0 styleCode="Bold" Ishaan plasma by >INR Medical Coagulation </content>1.07 Center assay #<content styleCode="Itali cs"> (0.80-1.20 #)</content> aPTT in 25.1-36. <content Saint Platelet poor 5 styleCode="Bold" [facility] plasma by >Partial Medical Coagulation Thromboplastin Center assay Time </content>30.4 SEC<content styleCode="Itali cs"> (25.1-36.5 SEC)</content> ID Date Data Source CHMROUTINECCDA.[id number] 11/25/2019 12:40:00 PM EDT [facility] -0400 Name Value Range Interpretation Description Data Sup porting Code Source(s) Document(s ) UNK <content [facility] styleCode="Bold Medical ">Globulin Center </content>Test not performed. G/DL (Reference Range: not available)
UNK <content [facility] styleCode="Bold Medical ">AG Ratio Center </content>Test not performed. (Reference Range: not available)
Protein <content [facility] Jacomes [Mass/volume styleCode="Bold Medical ] in Serum ">Total Protein Center or Plasma </content>Test not performed. G/DL (Reference Range: not available)
ID Date Data Source CardiacMarkers.[id number] 11/25/2019 12:40:00 PM EDT [facility] -0400 Name Value Range Interpretation Description Data Sup porting Code Source(s) Document(s ) Troponin < 0.034 <content Saint I.cardiac styleCode="Bold Ishaan [Mass/volume ">Troponin I Medical ] in Serum </content>< Center or Plasma 0.012 NG/ML<content styleCode="Ital ics"> (< 0.034 NG/ML)</content > ID Date Data Source BMP.[id number] 11/25/2019 12:40:00 PM EDT [facility] Name Value Range Interpretation Description Data Sup porting Code Source(s) Document(s ) Sodium <content Saint [Moles/volume] in styleCode="Bold"> [facility] Serum or Plasma Sodium Medical </content>Test Center not performed. MEQ/L (Reference Range: not available)
Potassium <content Saint [Moles/volume] in styleCode="Bold"> [facility] Serum or Plasma Potassium Medical </content>Test Center not performed. MEQ/L (Reference Range: not available)
UNK <content [facility] styleCode="Bold"> [place] BUN Medical </content>Test Center not performed. MG/DL (Reference Range: not available)
Carbon dioxide, <content Saint total styleCode="Bold"> Ish[place] [Moles/volume] in Carbon Dioxide Medical Serum or Plasma </content>Test Center not performed. MEQ/L (Reference Range: not available)
Chloride <content Saint [Moles/volume] in styleCode="Bold"> [facility] Serum or Plasma Chloride Medical </content>Test Center not performed. MEQ/L (Reference Range: not available)
Creatinine <content Saint [Mass/volume] in styleCode="Bold"> Stephan hs Serum or Plasma Creatinine Medical </content>Test Center not performed. MG/DL (Reference Range: not available)
Glucose <content [facility] [Mass/volume] in styleCode="Bold"> Stephan hs Serum or Plasma Glucose Medical </content>Test Center not performed. MG/DL (Reference Range: not available)
Calcium <content [facility] [Mass/volume] in styleCode="Bold"> Stephan hs Serum or Plasma Calcium Medical </content>Test Center not performed. MG/DL (Reference Range: not available)
UNK <content [facility] styleCode="Bold"> [place] EGFR Medical </content>Test Center not performed. GFR (Reference Range: not available)
Aspartate <content [facility] aminotransferase styleCode="Bold"> Stephan hs [Enzymatic Aspartate Medical activity/volume] Aminotransferase Center in Serum or Plasma (AST) </content>Test not performed. IU/L (Reference Range: not available)
Alanine <content [facility] aminotransferase styleCode="Bold"> Stephan hs [Enzymatic Alanine Medical activity/volume] Aminotransferase Center in Serum or Plasma (ALT) </content>Test not performed. IU/L (Reference Range: not available)
Bilirubin.total <content [facility] [Mass/volume] in styleCode="Bold"> Stephan hs Serum or Plasma Bilirubin Total Medical </content>Test Center not performed. MG/DL (Reference Range: not available)
Alkaline <content phosphatase styleCode="Bold"> Ish[place] [Enzymatic Alkaline Medical activity/volume] Phosphatase (ALP) Cente r in Serum or Plasma </content>Test not performed. IU/L (Reference Range: not available)
Albumin <content Saint [Mass/volume] in styleCode="Bold"> Stephan hs Serum or Plasma Albumin Medical </content>Test Center not performed. G/DL (Reference Range: not available)
ID Date Data Source [id number] 11/12/2019 10:10:00 AM EDT [facility] Name Value Range Interpretation Description Data Sup porting Code Source(s) Document(s ) SARS [facility] CORONAVIRUS 2 RNA This lab was ordered by [facility] and reported by [facility]. ID Date Data Source [id number] 10/06/2019 09:50:00 AM EDT [facility] Name Value Range Interpretation Code Description Data Pebbles rce(s) Supporting Document(s ) COV2 [facility] This lab was ordered by [facility] and reported by [facility]. ID Date Data Source [id number] 09/21/2019 05:56:00 PM EDT [facility] Name Value Range Interpretation Description Data Sup porting Code Source(s) Document(s ) SARS [facility] CORONAVIRUS 2 RNA This lab was ordered by [facility] and reported by [facility]. ID Date Data Source Microbiology.[id number] 09/18/2019 06:20:00 AM EDT [facility] 400 Name Value Range Interpretation Code Description Data Pebbles rce(s) Supporting Document(s ) UNK <item><content [facility] styleCode="Bold"> Medical Cent er Culture Status </content>
<t able><tbody><tr>< td>Specimen Number:</td><td>[id number]</td></tr ><tr><td>Sample Collection Date/Time: </td><td>09/18/2019 6:20 AM</td></tr><tr>< td>Specimen Source:</td><td>B LOOD</td></tr><tr ><td>Blood Culture:</td><td> Collection Plate Date: 09/18/2019 06:41 </td></tr><tr><td >Culture Report:</td><td>N O GROWTH AFTER 48 HOURS </td></tr><tr><td >Culture Status:</td><td>P reliminary </td></tr></tbody ></table></item> UNK <item><content [facility] styleCode="Bold"> Medical Cent er Culture Report </content>
<t able><tbody><tr>< td>Specimen Number:</td><td>[id number]</td></tr ><tr><td>Sample Collection Date/Time: </td><td>09/18/2019 6:20 AM</td></tr><tr>< td>Specimen Source:</td><td>B LOOD</td></tr><tr ><td>Blood Culture:</td><td> Collection Plate Date: 09/18/2019 06:41 </td></tr><tr><td >Culture Status:</td><td>P reliminary </td></tr><tr><td >Culture Report:</td><td>N O GROWTH AFTER 48 HOURS </td></tr></tbody ></table></item> ID Date Data Source Microbiology.[id number] 09/18/2019 06:05:00 AM EDT [facility] 400 Name Value Range Interpretation Code Description Data Pebbles rce(s) Supporting Document(s ) UNK <item><content [facility] styleCode="Bold"> Medical Cent er Culture Report </content>
<t able><tbody><tr>< td>Specimen Number:</td><td>[id number]</td></tr ><tr><td>Sample Collection Date/Time: </td><td>09/18/2019 6:05 AM</td></tr><tr>< td>Specimen Source:</td><td>B LOOD</td></tr><tr ><td>Blood Culture:</td><td> Collection Plate Date: 09/18/2019 06:41 </td></tr><tr><td >Culture Status:</td><td>P reliminary </td></tr><tr><td >Culture Report:</td><td>N O GROWTH AFTER 48 HOURS </td></tr></tbody ></table></item> UNK <item><content [facility] styleCode="Bold"> Medical [facility] er Culture Status </content>
<t able><tbody><tr>< td>Specimen Number:</td><td>[id number]</td></tr ><tr><td>Sample Collection Date/Time: </td><td>09/18/2019 6:05 AM</td></tr><tr>< td>Specimen Source:</td><td>B LOOD</td></tr><tr ><td>Culture Report:</td><td>N O GROWTH AFTER 48 HOURS </td></tr><tr><td >Culture Status:</td><td>P reliminary </td></tr><tr><td >Blood Culture:</td><td> Collection Plate Date: 09/18/2019 06:41 </td></tr></tbody ></table></item> ID Date Data Source HematologyRou.[id number] 09/17/2019 11:54:00 PM EDT [facility] 0400 Name Value Range Interpretation Code Description Data Supporting Source(s) Document(s ) UNK 0.5-1.5 Below low normal <content [facility] styleCode="Bold"> Medical Retic % Center </content>0.40 % L<content styleCode="Italic s"> (0.5-1.5 %)</content> UNK 0.018-0.1 Below low normal <content [facility] styleCode="Bold"> Medical Reticulocyte Center Absolute Count </content>0.0148 MCUMM L<content styleCode="Italic s"> (0.018-0.1 MCUMM)</content> UNK 9.3-17.4 <content [facility] styleCode="Bold"> Medical Immature Center Reticulocyte Fraction </content>15.9 %<content styleCode="Italic s"> (9.3-17.4 %)</content> UNK 30.0-38.0 Below low normal <content [facility] styleCode="Bold"> [facility] Reticulocyte Center Hemoglobin Equivalent </content>19.5 PG L<content styleCode="Italic s"> (30.0-38.0 PG)</content> ID Date Data Source HematologyRou.[id number] 09/17/2019 11:42:00 PM EDT [facility] 0400 Name Value Range Interpretation Description Data Sup porting Code Source(s) Document(s ) Leukocytes 4.4-11.0 Below low normal <content [facility] [#/volume] in styleCode="Bold [facility] Blood by ">White Blood Medical Automated count Cell Count Center </content>2.79 KCUMM L<content styleCode="Ital ics"> (4.4-11.0 KCUMM)</content > Erythrocytes 4.4-5.9 Below low normal <content [facility] [#/volume] in styleCode="Bold [facility] Blood by ">Red Blood Medical Automated count Cell Count Center </content>3.68 MCUMM L<content styleCode="Ital ics"> (4.4-5.9 MCUMM)</content > Hemoglobin 13.5-17. Below low normal <content [facility] [Mass/volume] in 5 styleCode="Bold [place] Blood ">Hemoglobin Medical </content>8.6 Center G/DL L<content styleCode="Ital ics"> (13.5-17.5 G/DL)</content> Hematocrit 41.0-53. Below low normal <content [facility] [Volume 0 styleCode="Bold [place] Fraction] of ">Hematocrit Medical Blood by </content>28.3 Center Automated count % L<content styleCode="Ital ics"> (41.0-53.0 %)</content> Erythrocyte 11.5-14. Above high <content [facility] distribution 5 normal styleCode="Bold [place] width [Ratio] by ">Red Cell Medical Automated count Distribution Center Width </content>19.9 % H<content styleCode="Ital ics"> (11.5-14.5 %)</content> Erythrocyte mean 80.0-100 <content [facility] corpuscular .0 styleCode="Bold [place] volume [Entitic ">Mean Medical volume] by Corpuscular Center Automated count Volume </content>76.9 FL<content styleCode="Ital ics"> (80.0-100.0 FL)</content> Erythrocyte mean 32.0-37. Below low normal <content [facility] corpuscular 0 styleCode="Bold [place] hemoglobin ">Mean Corpus. Medical concentration Hgb Center [Mass/volume] by Concentration Automated count (MCHC) </content>30.4 G/DL L<content styleCode="Ital ics"> (32.0-37.0 G/DL)</content> Erythrocyte mean 26.0-34. Below low normal <content [facility] corpuscular 0 styleCode="Bold [place] hemoglobin ">Mean Medical [Entitic mass] Corposcular Center by Automated Hemoglobin count </content>23.4 PG L<content styleCode="Ital ics"> (26.0-34.0 PG)</content> Platelets 130-400 <content [facility] [#/volume] in styleCode="Bold [place] Blood by ">Platelet Medical Automated count Count Center </content>160 KCUMM<content styleCode="Ital ics"> (130-400 KCUMM)</content > UNK 0.0 <content [facility] styleCode="Bold [place] ">Nucleated Red Medical Blood Cell Center Count </content>0.00 KCUMM<content styleCode="Ital ics"> (0.0 KCUMM)</content > UNK 0 <content [facility] styleCode="Bold [place] ">Nucleated Red Medical Blood Cell Center </content>0.0 /100<content styleCode="Ital ics"> (0 /100)</content> Platelet mean 8.0-11.0 <content [facility] volume [Entitic styleCode="Bold [place] volume] in Blood ">Mean Platelet Medical by Automated Volume Center count </content>9.5 FL<content styleCode="Ital ics"> (8.0-11.0 FL)</content> ID Date Data Source GFR(Creatinine).[id number] 09/17/2019 11:42:00 PM EDT [facility] 0-0400 Name Value Range Interpretation Code Description Data Pebbles rce(s) Supporting Document(s ) UNK > 60 <content [facility] styleCode="Bold"> Medical Cent er EGFR </content>144 GFR<content styleCode="Italic s"> (> 60 GFR)</content> ID Date Data Source ChemistrySpecia.[id number] 09/17/2019 11:42:00 PM EDT [facility] 0-0400 Name Value Range Interpretation Description Data Sup porting Code Source(s) Document(s ) Folate > 3.0 <content [facility] [Mass/volume] styleCode="[facility] [place] in Serum or d">Folic Acid Medical Plasma </content>7.01 Center NG/ML<content styleCode="Zakia lics"> (> 3.0 NG/ML)</conten t> Cobalamin 239-931 Below low normal <content [facility] (Vitamin B12) styleCode="[facility] [place] [Mass/volume] d">Vitamin B12 Medical in Serum or </content>204 Center Plasma PG/ML L<content styleCode="Zakia lics"> (239-931 PG/ML)</conten t> ID Date Data Source CHMROUTINECCDA.[id number] 09/17/2019 11:42:00 PM EDT [facility] -0400 Name Value Range Interpretation Description Data Sup porting Code Source(s) Document(s ) Ferritin 18-464 <content [facility] [Mass/volume] styleCode="Mac [facility] in Serum or d">Ferritin Medical Plasma </content>27.3 Center NG/ML<content styleCode="Zakia lics"> (18-464 NG/ML)</conten t> UNK 261-462 <content [facility] styleCode="[facility] d">TIBC Medical </content>436 Center UG/DL<content styleCode="Zakia lics"> (261-462 UG/DL)</conten t> Iron 49-181 Below low normal <content [facility] [Mass/volume] styleCode="[facility] [place] in Serum or d">Iron Medical Plasma </content>20 Center UG/DL L<content styleCode="Zakia lics"> (49-181 UG/DL)</conten t> Folate > 3.0 <content [facility] [Mass/volume] styleCode="[facility] [place] in Serum or d">Folic Acid Medical Plasma </content>7.01 Center NG/ML<content styleCode="Zakia lics"> (> 3.0 NG/ML)</conten t> Magnesium 1.6-2.3 Below lower panic <content [facility] [Mass/volume] limits styleCode="[facility] [place] in Serum or d">Magnesium Medical Plasma </content><con Center tent styleCode="Mac d">0.9 MG/DL LL</content><c ontent styleCode="Zakia lics"> (1.6-2.3 MG/DL)</conten t> Phosphate 2.5-4.5 <content [facility] [Mass/volume] styleCode="[facility] [place] in Serum or d">Phosphorus Medical Plasma </content>2.6 Center MG/DL<content styleCode="Zakia lics"> (2.5-4.5 MG/DL)</conten t> ID Date Data Source CardiacMarkers.[id number] 09/17/2019 11:42:00 PM EDT [facility] -0400 Name Value Range Interpretation Description Data Sup porting Code Source(s) Document(s ) Troponin < 0.034 <content [facility] I.cardiac styleCode="Bold [place] [Mass/volume ">Troponin I Medical ] in Serum </content>0.024 Center or Plasma NG/ML<content styleCode="Ital ics"> (< 0.034 NG/ML)</content > ID Date Data Source [facility].[id number] 09/17/2019 11:42:00 PM EDT [facility] Center Name Value Range Interpretation Description Data Sup porting Code Source(s) Document(s ) Sodium 137-145 Below low normal <content [facility] [Moles/volume] styleCode="[place] in Serum or d">Sodium Medical Plasma </content>135 Center MEQ/L L<content styleCode="Zakia lics"> (137-145 MEQ/L)</conten t> Potassium 3.5-5.3 Below lower panic <content [facility] [Moles/volume] limits styleCode="[facility] [place] in Serum or d">Potassium Medical Plasma </content><con Center tent styleCode="Mac d">2.7 MEQ/L LL</content><c ontent styleCode="Zakia lics"> (3.5-5.3 MEQ/L)</conten t> Carbon 22-30 Above high normal <content [facility] dioxide, total styleCode="[facility] [place] [Moles/volume] d">Carbon Medical in Serum or Dioxide Center Plasma </content>32 MEQ/L H<content styleCode="Zakia lics"> (22-30 MEQ/L)</conten t> Creatinine 0.5-1.3 <content [facility] [Mass/volume] styleCode="[facility] [place] in Serum or d">Creatinine Medical Plasma </content>0.6 Center MG/DL<content styleCode="Zakia lics"> (0.5-1.3 MG/DL)</conten t> UNK 9-20 Below low normal <content [facility] styleCode="[facility] [place] d">BUN Medical </content>6 Center MG/DL L<content styleCode="Zakia lics"> (9-20 MG/DL)</conten t> Chloride 98-107 Below low normal <content [facility] [Moles/volume] styleCode="Mac [facility] in Serum or d">Chloride Medical Plasma </content>96 Center MEQ/L L<content styleCode="Zakia lics"> (98-107 MEQ/L)</conten t> UNK > 60 <content [facility] styleCode="[facility] [place] d">EGFR Medical </content>144 Center GFR<content styleCode="Zakia lics"> (> 60 GFR)</content> Calcium 8.4-10.2 Below low normal <content [facility] [Mass/volume] styleCode="Mac [place] in Serum or d">Calcium Medical Plasma </content>7.8 Center MG/DL L<content styleCode="Zakia lics"> (8.4-10.2 MG/DL)</conten t> Glucose 74-106 <content [facility] [Mass/volume] styleCode="[facility] [place] in Serum or d">Glucose Medical Plasma </content>100 Center MG/DL<content styleCode="Zakia lics"> (74-106 MG/DL)</conten t> ID Date Data Source Liver 09/06/2019 03:21:00 AM EDT [facility] Profile.[id number] Name Value Range Interpretation Description Data Sup porting Code Source(s) Document(s ) Aspartate 17-59 <content [facility] aminotransferase styleCode="Bold"> [facility] hs [Enzymatic Aspartate Medical activity/volume] Aminotransferase Center in Serum or Plasma (AST) </content>31 IU/L<content styleCode="Italic s"> (17-59 IU/L)</content> Alanine 7-50 <content [facility] aminotransferase styleCode="Bold"> [facility] hs [Enzymatic Alanine Medical activity/volume] Aminotransferase Center in Serum or Plasma (ALT) </content>15 IU/L<content styleCode="Italic s"> (7-50 IU/L)</content> Albumin 3.5-5.0 Below low <content [facility] [Mass/volume] in normal styleCode="Bold"> Stephan hs Serum or Plasma Albumin Medical </content>3.4 Center G/DL L<content styleCode="Italic s"> (3.5-5.0 G/DL)</content> Alkaline 38-126 <content [facility] phosphatase styleCode="Bold"> [place] [Enzymatic Alkaline Medical activity/volume] Phosphatase (ALP) Cente r in Serum or Plasma </content>103 IU/L<content styleCode="Italic s"> (38-126 IU/L)</content> Bilirubin.total 0.2-1.3 <content [facility] [Mass/volume] in styleCode="Bold"> Stephan hs Serum or Plasma Bilirubin Total Medical </content>1.3 Center MG/DL<content styleCode="Italic s"> (0.2-1.3 MG/DL)</content> ID Date Data Source HematologyRou.[id number] 09/06/2019 03:21:00 AM EDT [facility] 0400 Name Value Range Interpretation Description Data Sup porting Code Source(s) Document(s ) Leukocytes 4.4-11.0 <content [facility] [#/volume] in styleCode="Bold [facility] Blood by ">White Blood Medical Automated count Cell Count Center </content>5.83 KCUMM<content styleCode="Ital ics"> (4.4-11.0 KCUMM)</content > Erythrocyte mean 26.0-34. Below low normal <content [facility] corpuscular 0 styleCode="Bold [place] hemoglobin ">Mean Medical [Entitic mass] Corposcular Center by Automated Hemoglobin count </content>23.3 PG L<content styleCode="Ital ics"> (26.0-34.0 PG)</content> Erythrocyte mean 80.0-100 <content [facility] corpuscular .0 styleCode="Bold [place] volume [Entitic ">Mean Medical volume] by Corpuscular Center Automated count Volume </content>77.5 FL<content styleCode="Ital ics"> (80.0-100.0 FL)</content> Hemoglobin 13.5-17. Below low normal <content [facility] [Mass/volume] in 5 styleCode="Bold [place] Blood ">Hemoglobin Medical </content>9.2 Center G/DL L<content styleCode="Ital ics"> (13.5-17.5 G/DL)</content> Erythrocytes 4.4-5.9 Below low normal <content [facility] [#/volume] in styleCode="Bold [place] Blood by ">Red Blood Medical Automated count Cell Count Center </content>3.95 MCUMM L<content styleCode="Ital ics"> (4.4-5.9 MCUMM)</content > Hematocrit 41.0-53. Below low normal <content [facility] [Volume 0 styleCode="Bold [place] Fraction] of ">Hematocrit Medical Blood by </content>30.6 Center Automated count % L<content styleCode="Ital ics"> (41.0-53.0 %)</content> Erythrocyte 11.5-14. Above high <content [facility] distribution 5 normal styleCode="Bold [place] width [Ratio] by ">Red Cell Medical Automated count Distribution Center Width </content>20.1 % H<content styleCode="Ital ics"> (11.5-14.5 %)</content> Platelet mean 8.0-11.0 <content [facility] volume [Entitic styleCode="Bold [place] volume] in Blood ">Mean Platelet Medical by Automated Volume Center count </content>9.2 FL<content styleCode="Ital ics"> (8.0-11.0 FL)</content> Platelets 130-400 <content [facility] [#/volume] in styleCode="Bold [place] Blood by ">Platelet Medical Automated count Count Center </content>240 KCUMM<content styleCode="Ital ics"> (130-400 KCUMM)</content > Erythrocyte mean 32.0-37. Below low normal <content [facility] corpuscular 0 styleCode="Bold [place] hemoglobin ">Mean Corpus. Medical concentration Hgb Center [Mass/volume] by Concentration Automated count (MCHC) </content>30.1 G/DL L<content styleCode="Ital ics"> (32.0-37.0 G/DL)</content> UNK 1.6-7.3 <content [facility] styleCode="Bold [facility] ">Neutrophil Medical Count Center </content>4.90 KCUMM<content styleCode="Ital ics"> (1.6-7.3 KCUMM)</content > Lymphocytes 24.0-44. Below low normal <content [facility] [#/volume] in 0 styleCode="Bold [place] Blood by ">Lymphocyte Medical Automated count </content>11.8 Center % L<content styleCode="Ital ics"> (24.0-44.0 %)</content> Monocytes 3.0-10.0 <content [facility] [#/volume] in styleCode="Bold [place] Blood by ">Monocyte Medical Automated count </content>3.6 Center %<content styleCode="Ital ics"> (3.0-10.0 %)</content> UNK 1.0-4.8 Below low normal <content [facility] styleCode="Bold [place] ">Lymphocyte Medical Count Center </content>0.69 KCUMM L<content styleCode="Ital ics"> (1.0-4.8 KCUMM)</content > Neutrophils 36-66 Above high <content [facility] [#/volume] in normal styleCode="Bold [place] Blood by ">Neutrophil Medical Automated count </content>84.1 Center % H<content styleCode="Ital ics"> (36-66 %)</content> UNK 0.0-0.3 <content [facility] styleCode="Bold [place] ">Basophil Medical Count Center </content>0.01 KCUMM<content styleCode="Ital ics"> (0.0-0.3 KCUMM)</content > Basophils 0.0-1.0 <content [facility] [#/volume] in styleCode="Bold [place] Blood by ">Basophil Medical Automated count </content>0.2 Center %<content styleCode="Ital ics"> (0.0-1.0 %)</content> UNK 0.0-0.6 <content [facility] styleCode="Bold [place] ">Eosinophil Medical Count Center </content>0.00 KCUMM<content styleCode="Ital ics"> (0.0-0.6 KCUMM)</content > Eosinophils 0-5.0 <content [facility] [#/volume] in styleCode="Bold [place] Blood by ">Eosinophil Medical Automated count </content>0.0 Center %<content styleCode="Ital ics"> (0-5.0 %)</content> UNK 0.2-0.9 <content [facility] styleCode="Bold [place] ">Monocyte Medical Count Center </content>0.21 KCUMM<content styleCode="Ital ics"> (0.2-0.9 KCUMM)</content > UNK 0.0 <content [facility] styleCode="Bold [place] ">Nucleated Red Medical Blood Cell Center Count </content>0.00 KCUMM<content styleCode="Ital ics"> (0.0 KCUMM)</content > UNK 0-0.1 <content [facility] styleCode="Bold [place] ">Immature Medical Granulocyte Center Count </content>0.02 KCUMM<content styleCode="Ital ics"> (0-0.1 KCUMM)</content > UNK < 1 <content [facility] styleCode="Bold [place] ">Immature Medical Granulocyte Center Ratio </content>0.3 %<content styleCode="Ital ics"> (< 1 %)</content> UNK 0 <content [facility] styleCode="Bold [place] ">Nucleated Red Medical Blood Cell Center </content>0.0 /100<content styleCode="Ital ics"> (0 /100)</content> ID Date Data Source GFR(Creatinine).[id number] 09/06/2019 03:21:00 AM EDT [facility] 0-0400 Name Value Range Interpretation Code Description Data Pebbles rce(s) Supporting Document(s ) UNK > 60 <content [facility] styleCode="Bold"> Medical Cent er EGFR </content>230 GFR<content styleCode="Italic s"> (> 60 GFR)</content> ID Date Data Source CHMROUTINECCDA.[id number] 09/06/2019 03:21:00 AM EDT [facility] -0400 Name Value Range Interpretation Description Data Sup porting Code Source(s) Document(s ) UNK >= 1.0 <content [facility] styleCode="[facility] [place] d">AG Ratio Medical </content>1.1 Center <content styleCode="Zakia lics"> (>= 1.0 )</content> UNK 2.3-3.5 <content [facility] styleCode="[facility] [place] d">Globulin Medical </content>3.1 Center G/DL<content styleCode="Zakia lics"> (2.3-3.5 G/DL)</content > Magnesium 1.6-2.3 Below lower panic <content [facility] [Mass/volume] limits styleCode="Mac [place] in Serum or d">Magnesium Medical Plasma </content><con Center tent styleCode="Mac d">0.9 MG/DL LL</content><c ontent styleCode="Zakia lics"> (1.6-2.3 MG/DL)</conten t> Protein 6.3-8.2 <content [facility] [Mass/volume] styleCode="Mac [place] in Serum or d">Total Medical Plasma Protein Center </content>6.5 G/DL<content styleCode="Zakia lics"> (6.3-8.2 G/DL)</content > Phosphate 2.5-4.5 <content [facility] [Mass/volume] styleCode="Mac [place] in Serum or d">Phosphorus Medical Plasma </content>2.6 Center MG/DL<content styleCode="Zakia lics"> (2.5-4.5 MG/DL)</conten t> ID Date Data Source BMP.[id number] 09/06/2019 03:21:00 AM EDT [facility] Name Value Range Interpretation Description Data Sup porting Code Source(s) Document(s ) Potassium 3.5-5.3 Below lower <content [facility] [Moles/volume] in panic limits styleCode="Bold"> J osephs Serum or Plasma Potassium Medical </content><conten Center t styleCode="Bold"> 2.9 MEQ/L LL</content><cont ent styleCode="Italic s"> (3.5-5.3 MEQ/L)</content> Sodium 137-145 Below low <content [facility] [Moles/volume] in normal styleCode="Bold"> [facility]ane phs Serum or Plasma Sodium Medical </content>134 Center MEQ/L L<content styleCode="Italic s"> (137-145 MEQ/L)</content> Chloride 98-107 Below low <content [facility] [Moles/volume] in normal styleCode="Bold"> [facility] phs Serum or Plasma Chloride Medical </content>95 Center MEQ/L L<content styleCode="Italic s"> (98-107 MEQ/L)</content> Creatinine 0.5-1.3 Below low <content [facility] [Mass/volume] in normal styleCode="Bold"> Stephan hs Serum or Plasma Creatinine Medical </content>0.4 Center MG/DL L<content styleCode="Italic s"> (0.5-1.3 MG/DL)</content> Glucose 74-106 Above high <content [facility] [Mass/volume] in normal styleCode="Bold"> Stephan hs Serum or Plasma Glucose Medical </content>134 Center MG/DL H<content styleCode="Italic s"> (74-106 MG/DL)</content> UNK 9-20 Below low <content [facility] normal styleCode="Bold"> [facility] BUN </content>5 Medical MG/DL L<content Center styleCode="Italic s"> (9-20 MG/DL)</content> Calcium 8.4-10. <content [facility] [Mass/volume] in 2 styleCode="Bold"> Stephan hs Serum or Plasma Calcium Medical </content>8.5 Center MG/DL<content styleCode="Italic s"> (8.4-10.2 MG/DL)</content> Carbon dioxide, 22-30 <content [facility] total styleCode="Bold"> [place] [Moles/volume] in Carbon Dioxide Medical Serum or Plasma </content>30 Center MEQ/L<content styleCode="Italic s"> (22-30 MEQ/L)</content> Alanine 7-50 <content [facility] aminotransferase styleCode="Bold"> [facility] hs [Enzymatic Alanine Medical activity/volume] Aminotransferase Center in Serum or Plasma (ALT) </content>15 IU/L<content styleCode="Italic s"> (7-50 IU/L)</content> Bilirubin.total 0.2-1.3 <content [facility] [Mass/volume] in styleCode="Bold"> Stephan hs Serum or Plasma Bilirubin Total Medical </content>1.3 Center MG/DL<content styleCode="Italic s"> (0.2-1.3 MG/DL)</content> Alkaline 38-126 <content [facility] phosphatase styleCode="Bold"> [place] [Enzymatic Alkaline Medical activity/volume] Phosphatase (ALP) Cente r in Serum or Plasma </content>103 IU/L<content styleCode="Italic s"> (38-126 IU/L)</content> Aspartate 17-59 <content [facility] aminotransferase styleCode="Bold"> Stephan hs [Enzymatic Aspartate Medical activity/volume] Aminotransferase Center in Serum or Plasma (AST) </content>31 IU/L<content styleCode="Italic s"> (17-59 IU/L)</content> UNK > 60 <content [facility] styleCode="Bold"> [place] EGFR Medical </content>230 Center GFR<content styleCode="Italic s"> (> 60 GFR)</content> Albumin 3.5-5.0 Below low <content [facility] [Mass/volume] in normal styleCode="Bold"> Stephan hs Serum or Plasma Albumin Medical </content>3.4 Center G/DL L<content styleCode="Italic s"> (3.5-5.0 G/DL)</content> ID Date Data Source CHMROUTINECCDA.[id number] 09/05/2019 10:28:00 AM EDT [facility] -0400 Name Value Range Interpretation Description Data Sup porting Code Source(s) Document(s ) Lactate 0.7-2.0 <content [facility] [Mass/volum styleCode="Bold Medical e] in Serum ">Lactic Acid Center or Plasma </content>1.9 MMOLL<content styleCode="Ital ics"> (0.7-2.0 MMOLL)</content > ID Date Data Source [id number] 09/05/2019 10:24:00 AM EDT [facility] Name Value Range Interpretation Code Description Data Pebbles rce(s) Supporting Document(s ) RESULT [facility] This lab was ordered by [facility] and reported by [facility]ui. ID Date Data Source Microbiology.[id number] 09/05/2019 10:17:00 AM EDT [facility] 400 Name Value Range Interpretation Code Description Data Pebbles rce(s) Supporting Document(s ) UNK <item><content [facility] styleCode="Bold"> Medical Cent er Culture Status </content>
<t able><tbody><tr>< td>Specimen Number:</td><td>[id number]</td></tr ><tr><td>Sample Collection Date/Time: </td><td> 0 10:17 AM</td></tr><tr>< td>Specimen Source:</td><td>B LOOD</td></tr><tr ><td>Blood Culture:</td><td> Collection Plate Date: 09/05/2019 10:23 </td></tr><tr><td >Culture Status:</td><td>P reliminary </td></tr><tr><td >Culture Report:</td><td>C ulture in progress </td></tr><tr><td >Gram Stain:</td><td>GR AM POSITIVE COCCI IN CLUSTERS NOTIFIED WITH READ-BACK KERVIN ROLLE RN </td></tr></tbody ></table></item> UNK <item><content [facility] styleCode="Bold"> Medical Cent er Culture Report </content>
<t able><tbody><tr>< td>Specimen Number:</td><td>[id number]</td></tr ><tr><td>Sample Collection Date/Time: </td><td> 0 10:17 AM</td></tr><tr>< td>Specimen Source:</td><td>B LOOD</td></tr><tr ><td>Gram Stain:</td><td>GR AM POSITIVE COCCI IN CLUSTERS NOTIFIED WITH READ-BACK KERVIN ROLLE RN </td></tr><tr><td >Culture Report:</td><td>C ulture in progress </td></tr><tr><td >Culture Status:</td><td>P reliminary </td></tr><tr><td >Blood Culture:</td><td> Collection Plate Date: 09/05/2019 10:23 </td></tr></tbody ></table></item> ID Date Data Source Microbiology.[id number] 09/05/2019 10:16:00 AM EDT [facility] 400 Name Value Range Interpretation Code Description Data Pebbles rce(s) Supporting Document(s ) UNK <item><content [facility] styleCode="Bold"> Medical Cent er Culture Report </content>
<t able><tbody><tr>< td>Specimen Number:</td><td>[id number]</td></tr ><tr><td>Sample Collection Date/Time: </td><td> 0 10:16 AM</td></tr><tr>< td>Specimen Source:</td><td>B LOOD</td></tr><tr ><td>Blood Culture:</td><td> Collection Plate Date: 09/05/2019 10:24 </td></tr><tr><td >Culture Status:</td><td>P reliminary </td></tr><tr><td >Culture Report:</td><td>C ulture in progress </td></tr></tbody ></table></item> UNK <item><content [facility] styleCode="Bold"> Medical Cent er Culture Status </content>
<t able><tbody><tr>< td>Specimen Number:</td><td>[id number]</td></tr ><tr><td>Sample Collection Date/Time: </td><td> 0 10:16 AM</td></tr><tr>< td>Specimen Source:</td><td>B LOOD</td></tr><tr ><td>Culture Report:</td><td>C ulture in progress </td></tr><tr><td >Culture Status:</td><td>P reliminary </td></tr><tr><td >Blood Culture:</td><td> Collection Plate Date: 09/05/2019 10:24 </td></tr></tbody ></table></item> ID Date Data Source Liver 09/05/2019 10:16:00 AM EDT [facility] Profile.[id number] Name Value Range Interpretation Description Data Sup porting Code Source(s) Document(s ) Aspartate 17-59 <content [facility] aminotransferase styleCode="Bold"> Stephan hs [Enzymatic Aspartate Medical activity/volume] Aminotransferase Center in Serum or Plasma (AST) </content>34 IU/L<content styleCode="Italic s"> (17-59 IU/L)</content> Alanine 7-50 <content [facility] aminotransferase styleCode="Bold"> Stephan hs [Enzymatic Alanine Medical activity/volume] Aminotransferase Center in Serum or Plasma (ALT) </content>15 IU/L<content styleCode="Italic s"> (7-50 IU/L)</content> Alkaline 38-126 <content [facility] phosphatase styleCode="Bold"> [place] [Enzymatic Alkaline Medical activity/volume] Phosphatase (ALP) Cente r in Serum or Plasma </content>97 IU/L<content styleCode="Italic s"> (38-126 IU/L)</content> Albumin 3.5-5.0 Below low <content [facility] [Mass/volume] in normal styleCode="Bold"> Stephan hs Serum or Plasma Albumin Medical </content>3.4 Center G/DL L<content styleCode="Italic s"> (3.5-5.0 G/DL)</content> Bilirubin.total 0.2-1.3 <content [facility] [Mass/volume] in styleCode="Bold"> Stephan hs Serum or Plasma Bilirubin Total Medical </content>0.8 Center MG/DL<content styleCode="Italic s"> (0.2-1.3 MG/DL)</content> ID Date Data Source HematologyRou.[id number] 09/05/2019 10:16:00 AM EDT [facility] 0400 Name Value Range Interpretation Description Data Sup porting Code Source(s) Document(s ) Hemoglobin 13.5-17. Below low normal <content [facility] [Mass/volume] in 5 styleCode="Bold [place] Blood ">Hemoglobin Medical </content>8.4 Center G/DL L<content styleCode="Ital ics"> (13.5-17.5 G/DL)</content> Erythrocytes 4.4-5.9 Below low normal <content [facility] [#/volume] in styleCode="Bold [facility] Blood by ">Red Blood Medical Automated count Cell Count Center </content>3.62 MCUMM L<content styleCode="Ital ics"> (4.4-5.9 MCUMM)</content > Leukocytes 4.4-11.0 <content [facility] [#/volume] in styleCode="Bold [place] Blood by ">White Blood Medical Automated count Cell Count Center </content>6.06 KCUMM<content styleCode="Ital ics"> (4.4-11.0 KCUMM)</content > Hematocrit 41.0-53. Below low normal <content [facility] [Volume 0 styleCode="Bold [facility] Fraction] of ">Hematocrit Medical Blood by </content>28.4 Center Automated count % L<content styleCode="Ital ics"> (41.0-53.0 %)</content> Erythrocyte mean 80.0-100 <content [facility] corpuscular .0 styleCode="Bold [place] volume [Entitic ">Mean Medical volume] by Corpuscular Center Automated count Volume </content>78.5 FL<content styleCode="Ital ics"> (80.0-100.0 FL)</content> Erythrocyte mean 26.0-34. Below low normal <content [facility] corpuscular 0 styleCode="Bold [place] hemoglobin ">Mean Medical [Entitic mass] Corposcular Center by Automated Hemoglobin count </content>23.2 PG L<content styleCode="Ital ics"> (26.0-34.0 PG)</content> Erythrocyte mean 32.0-37. Below low normal <content [facility] corpuscular 0 styleCode="Bold [place] hemoglobin ">Mean Corpus. Medical concentration Hgb Center [Mass/volume] by Concentration Automated count (MCHC) </content>29.6 G/DL L<content styleCode="Ital ics"> (32.0-37.0 G/DL)</content> Platelet mean 8.0-11.0 <content [facility] volume [Entitic styleCode="Bold [place] volume] in Blood ">Mean Platelet Medical by Automated Volume Center count </content>9.4 FL<content styleCode="Ital ics"> (8.0-11.0 FL)</content> UNK 1.6-7.3 <content [facility] styleCode="Bold [place] ">Neutrophil Medical Count Center </content>4.29 KCUMM<content styleCode="Ital ics"> (1.6-7.3 KCUMM)</content > Erythrocyte 11.5-14. Above high <content [facility] distribution 5 normal styleCode="Bold [place] width [Ratio] by ">Red Cell Medical Automated count Distribution Center Width </content>20.8 % H<content styleCode="Ital ics"> (11.5-14.5 %)</content> Platelets 130-400 <content [facility] [#/volume] in styleCode="Bold [place] Blood by ">Platelet Medical Automated count Count Center </content>223 KCUMM<content styleCode="Ital ics"> (130-400 KCUMM)</content > Neutrophils 36-66 Above high <content [facility] [#/volume] in normal styleCode="Bold [place] Blood by ">Neutrophil Medical Automated count </content>70.7 Center % H<content styleCode="Ital ics"> (36-66 %)</content> UNK 1.0-4.8 <content [facility] styleCode="Bold [place] ">Lymphocyte Medical Count Center </content>1.27 KCUMM<content styleCode="Ital ics"> (1.0-4.8 KCUMM)</content > UNK 0.2-0.9 <content [facility] styleCode="Bold [place] ">Monocyte Medical Count Center </content>0.27 KCUMM<content styleCode="Ital ics"> (0.2-0.9 KCUMM)</content > Lymphocytes 24.0-44. Below low normal <content [facility] [#/volume] in 0 styleCode="Bold [place] Blood by ">Lymphocyte Medical Automated count </content>21.0 Center % L<content styleCode="Ital ics"> (24.0-44.0 %)</content> Monocytes 3.0-10.0 <content [facility] [#/volume] in styleCode="Bold [place] Blood by ">Monocyte Medical Automated count </content>4.5 Center %<content styleCode="Ital ics"> (3.0-10.0 %)</content> Basophils 0.0-1.0 <content [facility] [#/volume] in styleCode="Bold [place] Blood by ">Basophil Medical Automated count </content>0.7 Center %<content styleCode="Ital ics"> (0.0-1.0 %)</content> Eosinophils 0-5.0 <content [facility] [#/volume] in styleCode="Bold [place] Blood by ">Eosinophil Medical Automated count </content>2.8 Center %<content styleCode="Ital ics"> (0-5.0 %)</content> UNK 0.0-0.6 <content [facility] styleCode="Bold [place] ">Eosinophil Medical Count Center </content>0.17 KCUMM<content styleCode="Ital ics"> (0.0-0.6 KCUMM)</content > UNK 0.0 <content [facility] styleCode="Bold [place] ">Nucleated Red Medical Blood Cell Center Count </content>0.00 KCUMM<content styleCode="Ital ics"> (0.0 KCUMM)</content > UNK 0 <content [facility] styleCode="Bold [place] ">Nucleated Red Medical Blood Cell Center </content>0.0 /100<content styleCode="Ital ics"> (0 /100)</content> UNK 0.0-0.3 <content [facility] styleCode="Bold [place] ">Basophil Medical Count Center </content>0.04 KCUMM<content styleCode="Ital ics"> (0.0-0.3 KCUMM)</content > UNK NORMAL <content [facility] styleCode="Bold [place] ">Polychromasia Medical </content>SLIGH Center T <content styleCode="Ital ics"> (NORMAL )</content> UNK NORMAL <content [facility] styleCode="Bold [place] ">Platelet Medical Estimate Center </content>ASYA L <content styleCode="Ital ics"> (NORMAL )</content> UNK < 1 <content [facility] styleCode="Bold [place] ">Immature Medical Granulocyte Center Ratio </content>0.3 %<content styleCode="Ital ics"> (< 1 %)</content> UNK NORMAL <content [facility] styleCode="Bold [place] ">RBC Medical Morphology Center </content>ABNOR MAL <content styleCode="Ital ics"> (NORMAL )</content> UNK 0-0.1 <content [facility] styleCode="Bold [place] ">Immature Medical Granulocyte Center Count </content>0.02 KCUMM<content styleCode="Ital ics"> (0-0.1 KCUMM)</content > UNK NORMAL <content [facility] styleCode="Bold [place] ">Anisocyte Medical </content>IGH [place] T <content styleCode="Ital ics"> (NORMAL )</content> UNK NORMAL <content [facility] styleCode="Bold [place] ">Microcyte Medical </content>[facility] T <content styleCode="Ital ics"> (NORMAL )</content> UNK NORMAL <content [facility] styleCode="Bold [place] ">Macrocyte Medical </content>[facility] T <content styleCode="Ital ics"> (NORMAL )</content> UNK NORMAL <content [facility] styleCode="Bold [place] ">Hypochromia Medical </content>[facility] T <content styleCode="Ital ics"> (NORMAL )</content> ID Date Data Source GFR(Creatinine).[id number] 09/05/2019 10:16:00 AM EDT [facility] 0-0400 Name Value Range Interpretation Code Description Data Pebbles rce(s) Supporting Document(s ) UNK > 60 <content [facility] styleCode="Bold"> Medical Cent er EGFR </content>178 GFR<content styleCode="Italic s"> (> 60 GFR)</content> ID Date Data Source CHMROUTINECCDA.[id number] 09/05/2019 10:16:00 AM EDT [facility] -0400 Name Value Range Interpretation Description Data Sup porting Code Source(s) Document(s ) UNK 2.3-3.5 <content [facility] styleCode="Bold Medical ">Globulin Center </content>2.6 G/DL<content styleCode="Ital ics"> (2.3-3.5 G/DL)</content> UNK >= 1.0 <content [facility] styleCode="Bold Medical ">AG Ratio Center </content>1.3 <content styleCode="Ital ics"> (>= 1.0 )</content> Protein 6.3-8.2 Below low normal <content [facility] [Mass/volum styleCode="Bold Medical e] in Serum ">Total Protein Center or Plasma </content>6.0 G/DL L<content styleCode="Ital ics"> (6.3-8.2 G/DL)</content> ID Date Data Source [facility].[id number] 09/05/2019 10:16:00 AM EDT [facility] Name Value Range Interpretation Description Data Sup porting Code Source(s) Document(s ) Sodium 137-145 <content [facility] [Moles/volume] in styleCode="Bold"> [facility] phs Serum or Plasma Sodium Medical </content>141 Center MEQ/L<content styleCode="Italic s"> (137-145 MEQ/L)</content> Potassium 3.5-5.3 Below low <content [facility] [Moles/volume] in normal styleCode="Bold"> [place] phs Serum or Plasma Potassium Medical </content>3.2 Center MEQ/L L<content styleCode="Italic s"> (3.5-5.3 MEQ/L)</content> Chloride 98-107 <content [facility] [Moles/volume] in styleCode="Bold"> [place] phs Serum or Plasma Chloride Medical </content>104 Center MEQ/L<content styleCode="Italic s"> (98-107 MEQ/L)</content> UNK 9-20 Below low <content [facility] normal styleCode="Bold"> [place] BUN </content>5 Medical MG/DL L<content Center styleCode="Italic s"> (9-20 MG/DL)</content> Creatinine 0.5-1.3 <content [facility] [Mass/volume] in styleCode="Bold"> Stephan hs Serum or Plasma Creatinine Medical </content>0.5 Center MG/DL<content styleCode="Italic s"> (0.5-1.3 MG/DL)</content> Glucose 74-106 <content [facility] [Mass/volume] in styleCode="Bold"> Stephan hs Serum or Plasma Glucose Medical </content>90 Center MG/DL<content styleCode="Italic s"> (74-106 MG/DL)</content> Carbon dioxide, 22-30 <content [facility] total styleCode="Bold"> [place] [Moles/volume] in Carbon Dioxide Medical Serum or Plasma </content>29 Center MEQ/L<content styleCode="Italic s"> (22-30 MEQ/L)</content> Calcium 8.4-10. <content [facility] [Mass/volume] in 2 styleCode="Bold"> Stephan hs Serum or Plasma Calcium Medical </content>8.6 Center MG/DL<content styleCode="Italic s"> (8.4-10.2 MG/DL)</content> Aspartate 17-59 <content [facility] aminotransferase styleCode="Bold"> Stephan hs [Enzymatic Aspartate Medical activity/volume] Aminotransferase Center in Serum or Plasma (AST) </content>34 IU/L<content styleCode="Italic s"> (17-59 IU/L)</content> Bilirubin.total 0.2-1.3 <content [facility] [Mass/volume] in styleCode="Bold"> Stephan hs Serum or Plasma Bilirubin Total Medical </content>0.8 Center MG/DL<content styleCode="Italic s"> (0.2-1.3 MG/DL)</content> UNK > 60 <content [facility] styleCode="Bold"> [place] EGFR Medical </content>178 Center GFR<content styleCode="Italic s"> (> 60 GFR)</content> Alkaline 38-126 <content [facility] phosphatase styleCode="Bold"> [place] [Enzymatic Alkaline Medical activity/volume] Phosphatase (ALP) Cente r in Serum or Plasma </content>97 IU/L<content styleCode="Italic s"> (38-126 IU/L)</content> Alanine 7-50 <content [facility] aminotransferase styleCode="Bold"> Stephan hs [Enzymatic Alanine Medical activity/volume] Aminotransferase Center in Serum or Plasma (ALT) </content>15 IU/L<content styleCode="Italic s"> (7-50 IU/L)</content> Albumin 3.5-5.0 Below low <content [facility] [Mass/volume] in normal styleCode="Bold"> Stephan hs Serum or Plasma Albumin Medical </content>3.4 Center G/DL L<content styleCode="Italic s"> (3.5-5.0 G/DL)</content> ID Date Data Source Liver 08/10/2019 01:50:00 AM EST [facility] Profile.[id number] Name Value Range Interpretation Description Data Sup porting Code Source(s) Document(s ) Aspartate 17-59 <content [facility] aminotransferase styleCode="Bold"> Stephan hs [Enzymatic Aspartate Medical activity/volume] Aminotransferase Center in Serum or Plasma (AST) </content>27 IU/L<content styleCode="Italic s"> (17-59 IU/L)</content> Alkaline 38-126 <content [facility] phosphatase styleCode="Bold"> [place] [Enzymatic Alkaline Medical activity/volume] Phosphatase (ALP) Cente r in Serum or Plasma </content>78 IU/L<content styleCode="Italic s"> (38-126 IU/L)</content> Alanine 7-50 <content [facility] aminotransferase styleCode="Bold"> Stephan hs [Enzymatic Alanine Medical activity/volume] Aminotransferase Center in Serum or Plasma (ALT) </content>17 IU/L<content styleCode="Italic s"> (7-50 IU/L)</content> UNK 0.0-0.3 <content [facility] styleCode="Bold"> [place] Bilirubin, Direct Medical </content>< 0.2 Center MG/DL<content styleCode="Italic s"> (0.0-0.3 MG/DL)</content> Bilirubin.total 0.2-1.3 <content [facility] [Mass/volume] in styleCode="Bold"> Stephan hs Serum or Plasma Bilirubin Total Medical </content>0.4 Center MG/DL<content styleCode="Italic s"> (0.2-1.3 MG/DL)</content> Albumin 3.5-5.0 Below low <content [facility] [Mass/volume] in normal styleCode="Bold"> Stephan hs Serum or Plasma Albumin Medical </content>3.4 Center G/DL L<content styleCode="Italic s"> (3.5-5.0 G/DL)</content> ID Date Data Source HematologyRou.[id number] 08/10/2019 01:50:00 AM EST [facility] 0500 Name Value Range Interpretation Description Data Sup porting Code Source(s) Document(s ) Hematocrit 41.0-53. Below low normal <content [facility] [Volume 0 styleCode="Bold [place] Fraction] of ">Hematocrit Medical Blood by </content>27.8 Center Automated count % L<content styleCode="Ital ics"> (41.0-53.0 %)</content> Erythrocytes 4.4-5.9 Below low normal <content [facility] [#/volume] in styleCode="Bold [place] Blood by ">Red Blood Medical Automated count Cell Count Center </content>3.41 MCUMM L<content styleCode="Ital ics"> (4.4-5.9 MCUMM)</content > Leukocytes 4.4-11.0 Below low normal <content [facility] [#/volume] in styleCode="Bold [place] Blood by ">White Blood Medical Automated count Cell Count Center </content>4.31 KCUMM L<content styleCode="Ital ics"> (4.4-11.0 KCUMM)</content > Hemoglobin 13.5-17. Below low normal <content [facility] [Mass/volume] in 5 styleCode="Bold [place] Blood ">Hemoglobin Medical </content>8.2 Center G/DL L<content styleCode="Ital ics"> (13.5-17.5 G/DL)</content> Erythrocyte 11.5-14. Above high <content [facility] distribution 5 normal styleCode="Bold [facility] width [Ratio] by ">Red Cell Medical Automated count Distribution Center Width </content>20.6 % H<content styleCode="Ital ics"> (11.5-14.5 %)</content> Platelets 130-400 <content [facility] [#/volume] in styleCode="Bold [place] Blood by ">Platelet Medical Automated count Count Center </content>223 KCUMM<content styleCode="Ital ics"> (130-400 KCUMM)</content > Erythrocyte mean 80.0-100 <content [facility] corpuscular .0 styleCode="Bold [place] volume [Entitic ">Mean Medical volume] by Corpuscular Center Automated count Volume </content>81.5 FL<content styleCode="Ital ics"> (80.0-100.0 FL)</content> Erythrocyte mean 32.0-37. Below low normal <content [facility] corpuscular 0 styleCode="Bold [place] hemoglobin ">Mean Corpus. Medical concentration Hgb Center [Mass/volume] by Concentration Automated count (MCHC) </content>29.5 G/DL L<content styleCode="Ital ics"> (32.0-37.0 G/DL)</content> Erythrocyte mean 26.0-34. Below low normal <content [facility] corpuscular 0 styleCode="Bold [place] hemoglobin ">Mean Medical [Entitic mass] Corposcular Center by Automated Hemoglobin count </content>24.0 PG L<content styleCode="Ital ics"> (26.0-34.0 PG)</content> UNK 0.0 <content [facility] styleCode="Bold [place] ">Nucleated Red Medical Blood Cell Center Count </content>0.00 KCUMM<content styleCode="Ital ics"> (0.0 KCUMM)</content > Platelet mean 8.0-11.0 <content [facility] volume [Entitic styleCode="Bold [place] volume] in Blood ">Mean Platelet Medical by Automated Volume Center count </content>8.8 FL<content styleCode="Ital ics"> (8.0-11.0 FL)</content> UNK 0 <content [facility] styleCode="Bold [place] ">Nucleated Red Medical Blood Cell Center </content>0.0 /100<content styleCode="Ital ics"> (0 /100)</content> ID Date Data Source GFR(Creatinine).[id number] 08/10/2019 01:50:00 AM EST [facility] 0-0500 Name Value Range Interpretation Code Description Data Pebbles rce(s) Supporting Document(s ) UNK > 60 <content [facility] styleCode="Bold"> Medical Cent er EGFR </content>144 GFR<content styleCode="Italic s"> (> 60 GFR)</content> ID Date Data Source BMP.[id number] 08/10/2019 01:50:00 AM EST [facility] Name Value Range Interpretation Description Data Sup porting Code Source(s) Document(s ) Sodium 137-145 <content [facility] [Moles/volume] in styleCode="Bold"> [place] phs Serum or Plasma Sodium Medical </content>144 Center MEQ/L<content styleCode="Italic s"> (137-145 MEQ/L)</content> Carbon dioxide, 22-30 <content [facility] total styleCode="Bold"> [place] [Moles/volume] in Carbon Dioxide Medical Serum or Plasma </content>25 Center MEQ/L<content styleCode="Italic s"> (22-30 MEQ/L)</content> Potassium 3.5-5.3 Below lower <content [facility] [Moles/volume] in panic limits styleCode="Bold"> J osephs Serum or Plasma Potassium Medical </content><conten Center t styleCode="Bold"> 2.9 MEQ/L LL</content><cont ent styleCode="Italic s"> (3.5-5.3 MEQ/L)</content> Creatinine 0.5-1.3 <content [facility] [Mass/volume] in styleCode="Bold"> Stephan hs Serum or Plasma Creatinine Medical </content>0.6 Center MG/DL<content styleCode="Italic s"> (0.5-1.3 MG/DL)</content> Chloride 98-107 <content [facility] [Moles/volume] in styleCode="Bold"> [place] phs Serum or Plasma Chloride Medical </content>106 Center MEQ/L<content styleCode="Italic s"> (98-107 MEQ/L)</content> UNK 9-20 Below low <content [facility] normal styleCode="Bold"> [place] BUN </content>8 Medical MG/DL L<content Center styleCode="Italic s"> (9-20 MG/DL)</content> Glucose 74-106 <content [facility] [Mass/volume] in styleCode="Bold"> Stephan hs Serum or Plasma Glucose Medical </content>89 Center MG/DL<content styleCode="Italic s"> (74-106 MG/DL)</content> Aspartate 17-59 <content [facility] aminotransferase styleCode="Bold"> Stephan hs [Enzymatic Aspartate Medical activity/volume] Aminotransferase Center in Serum or Plasma (AST) </content>27 IU/L<content styleCode="Italic s"> (17-59 IU/L)</content> UNK > 60 <content [facility] styleCode="Bold"> [place] EGFR Medical </content>144 Center GFR<content styleCode="Italic s"> (> 60 GFR)</content> Calcium 8.4-10. <content [facility] [Mass/volume] in 2 styleCode="Bold"> Stephan hs Serum or Plasma Calcium Medical </content>8.6 Center MG/DL<content styleCode="Italic s"> (8.4-10.2 MG/DL)</content> Alanine 7-50 <content [facility] aminotransferase styleCode="Bold"> Stephan hs [Enzymatic Alanine Medical activity/volume] Aminotransferase Center in Serum or Plasma (ALT) </content>17 IU/L<content styleCode="Italic s"> (7-50 IU/L)</content> Bilirubin.total 0.2-1.3 <content [facility] [Mass/volume] in styleCode="Bold"> Stephan hs Serum or Plasma Bilirubin Total Medical </content>0.4 Center MG/DL<content styleCode="Italic s"> (0.2-1.3 MG/DL)</content> Albumin 3.5-5.0 Below low <content [facility] [Mass/volume] in normal styleCode="Bold"> Stephan hs Serum or Plasma Albumin Medical </content>3.4 Center G/DL L<content styleCode="Italic s"> (3.5-5.0 G/DL)</content> Alkaline 38-126 <content [facility] phosphatase styleCode="Bold"> [place] [Enzymatic Alkaline Medical activity/volume] Phosphatase (ALP) Cente r in Serum or Plasma </content>78 IU/L<content styleCode="Italic s"> (38-126 IU/L)</content> ID Date Data Source Urinalysis.[id number] 08/09/2019 08:03:00 AM EST [facility] 0 Name Value Range Interpretation Description Data Sup porting Code Source(s) Document(s ) Color of Urine YELLOW <content [facility] styleCode="Mac [place] d">Color, Medical Urine Center </content>YELL OW <content styleCode="Zakia lics"> (YELLOW )</content> UNK CLEAR <content [facility] styleCode="Mac [place] d">Urine Medical Clarity Center </content>COLIN R <content styleCode="Zakia lics"> (CLEAR )</content> UNK NEGATIVE <content [facility] styleCode="Mac [place] d">Urine Medical Bilirubin Center </content>NEGA TIVE <content styleCode="Zakia lics"> (NEGATIVE )</content> Glucose NEGATIVE <content [facility] [Mass/volume] styleCode="Mac [place] in Urine by d">Urine Medical Test strip Glucose Center </content>NEGA TIVE MG/DL<content styleCode="Zakia lics"> (NEGATIVE MG/DL)</conten t> Ketones NEGATIVE <content [facility] [Mass/volume] styleCode="Mac [place] in Urine by d">Urine Medical Test strip Ketone Center </content>NEGA TIVE MG/DL<content styleCode="Zakia lics"> (NEGATIVE MG/DL)</conten t> Specific 1.015-1.02 Below low normal <content [facility] gravity of 5 styleCode="Mac [place]omes Urine by Test d">Urine Medical strip Specific Center [place] </content>1.01 0 L<content styleCode="Zakia lics"> (1.015-1.025 )</content> Urobilinogen 0.2-1.0 <content [facility] [Units/volume] styleCode="Mac [place] in Urine by d">Urine Medical Test strip Urobilinogen Center </content>0.2 MG/DL<content styleCode="Zakia lics"> (0.2-1.0 MG/DL)</conten t> Protein NEGATIVE <content [facility] [Mass/volume] styleCode="Mac [place] in Urine by d">Urine Medical Test strip Protein Center </content>NEGA TIVE MG/DL<content styleCode="Zakia lics"> (NEGATIVE MG/DL)</conten t> Hemoglobin NEGATIVE <content [facility] [Presence] in styleCode="Mac Quiros Urine by Test d">Urine Blood Medical strip </content>NEGA Center TIVE <content styleCode="Zakia lics"> (NEGATIVE )</content> pH of Urine by 4.5-8.0 <content [facility] Test strip styleCode="Mac Jacomes d">Urine pH Medical </content>6.5 Center <content styleCode="Zakia lics"> (4.5-8.0 )</content> Nitrite NEGATIVE <content [facility] [Presence] in styleCode="Mac Quiros Urine by Test d">Urine Medical strip Nitrite Center </content>NEGA TIVE <content styleCode="Zakia lics"> (NEGATIVE )</content> Leukocyte NEGATIVE <content [facility] esterase styleCode="Mac Quiros [Presence] in d">Urine Medical Urine by Test Leukocyte Center strip </content>NEGA TIVE <content styleCode="Zakia lics"> (NEGATIVE )</content> ID Date Data Source Liver 08/09/2019 08:03:00 AM EST [facility] Profile.[id number] Name Value Range Interpretation Description Data Sup porting Code Source(s) Document(s ) Aspartate 17-59 <content [facility] aminotransferase styleCode="Bold"> Stephan hs [Enzymatic Aspartate Medical activity/volume] Aminotransferase Center in Serum or Plasma (AST) </content>38 IU/L<content styleCode="Italic s"> (17-59 IU/L)</content> Alanine 7-50 <content [facility] aminotransferase styleCode="Bold"> Stephan hs [Enzymatic Alanine Medical activity/volume] Aminotransferase Center in Serum or Plasma (ALT) </content>19 IU/L<content styleCode="Italic s"> (7-50 IU/L)</content> UNK 0.0-0.3 <content [facility] styleCode="Bold"> [place] Bilirubin, Direct Medical </content>< 0.2 Center MG/DL<content styleCode="Italic s"> (0.0-0.3 MG/DL)</content> Albumin 3.5-5.0 <content [facility] [Mass/volume] in styleCode="Bold"> Stephan hs Serum or Plasma Albumin Medical </content>3.6 Center G/DL<content styleCode="Italic s"> (3.5-5.0 G/DL)</content> Alkaline 38-126 <content [facility] phosphatase styleCode="Bold"> [place] [Enzymatic Alkaline Medical activity/volume] Phosphatase (ALP) Cente r in Serum or Plasma </content>94 IU/L<content styleCode="Italic s"> (38-126 IU/L)</content> Bilirubin.total 0.2-1.3 <content [facility] [Mass/volume] in styleCode="Bold"> Stephan hs Serum or Plasma Bilirubin Total Medical </content>0.7 Center MG/DL<content styleCode="Italic s"> (0.2-1.3 MG/DL)</content> ID Date Data Source HematologyRou.[id number] 08/09/2019 08:03:00 AM [facility] Name Value Range Interpretation Description Data Sup porting Code Source(s) Document(s ) Leukocytes 4.4-11.0 <content [facility] [#/volume] in styleCode="Bold [place] Blood by ">White Blood Medical Automated count Cell Count Center </content>6.20 KCUMM<content styleCode="Ital ics"> (4.4-11.0 KCUMM)</content > Hemoglobin 13.5-17. Below low normal <content [facility] [Mass/volume] in 5 styleCode="Bold [facility] Blood ">Hemoglobin Medical </content>9.4 Center G/DL L<content styleCode="Ital ics"> (13.5-17.5 G/DL)</content> Erythrocytes 4.4-5.9 Below low normal <content [facility] [#/volume] in styleCode="[facility] [place] Blood by ">Red Blood Medical Automated count Cell Count Center </content>3.95 MCUMM L<content styleCode="Ital ics"> (4.4-5.9 MCUMM)</content > Erythrocyte mean 26.0-34. Below low normal <content [facility] corpuscular 0 styleCode="Bold [place] hemoglobin ">Mean Medical [Entitic mass] Corposcular Center by Automated Hemoglobin count </content>23.8 PG L<content styleCode="Ital ics"> (26.0-34.0 PG)</content> Platelets 130-400 <content [facility] [#/volume] in styleCode="Bold [place] Blood by ">Platelet Medical Automated count Count Center </content>252 KCUMM<content styleCode="Ital ics"> (130-400 KCUMM)</content > Erythrocyte 11.5-14. Above high <content [facility] distribution 5 normal styleCode="Bold [place] width [Ratio] by ">Red Cell Medical Automated count Distribution Center Width </content>20.5 % H<content styleCode="Ital ics"> (11.5-14.5 %)</content> Erythrocyte mean 32.0-37. Below low normal <content [facility] corpuscular 0 styleCode="Bold [place] hemoglobin ">Mean Corpus. Medical concentration Hgb Center [Mass/volume] by Concentration Automated count (MCHC) </content>29.2 G/DL L<content styleCode="Ital ics"> (32.0-37.0 G/DL)</content> Hematocrit 41.0-53. Below low normal <content [facility] [Volume 0 styleCode="[facility]old [place] Fraction] of ">Hematocrit Medical Blood by </content>32.2 Center Automated count % L<content styleCode="Ital ics"> (41.0-53.0 %)</content> Erythrocyte mean 80.0-100 <content [facility] corpuscular .0 styleCode="Bold [place] volume [Entitic ">Mean Medical volume] by Corpuscular Center Automated count Volume </content>81.5 FL<content styleCode="Ital ics"> (80.0-100.0 FL)</content> Platelet mean 8.0-11.0 <content [facility] volume [Entitic styleCode="Bold [place] volume] in Blood ">Mean Platelet Medical by Automated Volume Center count </content>9.7 FL<content styleCode="Ital ics"> (8.0-11.0 FL)</content> UNK 0.0 <content [facility] styleCode="[facility] [place] ">Nucleated Red Medical Blood Cell Center Count </content>0.00 KCUMM<content styleCode="Ital ics"> (0.0 KCUMM)</content > UNK 0 <content [facility] styleCode="[facility]old [place] ">Nucleated Red Medical Blood Cell Center </content>0.0 /100<content styleCode="Ital ics"> (0 /100)</content> ID Date Data Source GFR(Creatinine).[id number] 08/09/2019 08:03:00 AM [facility] 0-0500 Name Value Range Interpretation Code Description Data Pebbles rce(s) Supporting Document(s ) UNK > 60 <content [facility] styleCode="Bold"> Medical Cent er EGFR </content>178 GFR<content styleCode="Italic s"> (> 60 GFR)</content> ID Date Data Source CHMROUTINECCDA.[id number] 08/09/2019 08:03:00 AM [facility] -0500 Name Value Range Interpretation Description Data Sup porting Code Source(s) Document(s ) UNK 30-110 <content [facility] styleCode="Bold Medical ">Amylase Center </content>35 IU/L<content styleCode="Ital ics"> (30-110 IU/L)</content> Lipase 23-300 Below low normal <content [facility] [Enzymatic styleCode="Bold Medical activity/vo ">Lipase Center lume] in </content>19 Serum or IU/L L<content Plasma styleCode="Ital ics"> (23-300 IU/L)</content> ID Date Data Source BMP.[id number] 08/09/2019 08:03:00 AM EST [facility] Name Value Range Interpretation Description Data Sup porting Code Source(s) Document(s ) Sodium 137-145 <content [facility] [Moles/volume] in styleCode="Bold"> [facility] phs Serum or Plasma Sodium Medical </content>143 Center MEQ/L<content styleCode="Italic s"> (137-145 MEQ/L)</content> UNK 9-20 Below low <content [facility] normal styleCode="Bold"> [place] BUN </content>5 Medical MG/DL L<content Center styleCode="Italic s"> (9-20 MG/DL)</content> Chloride 98-107 <content [facility] [Moles/volume] in styleCode="Bold"> [place] phs Serum or Plasma Chloride Medical </content>104 Center MEQ/L<content styleCode="Italic s"> (98-107 MEQ/L)</content> Creatinine 0.5-1.3 <content [facility] [Mass/volume] in styleCode="Bold"> [facility] hs Serum or Plasma Creatinine Medical </content>0.5 Center MG/DL<content styleCode="Italic s"> (0.5-1.3 MG/DL)</content> Carbon dioxide, 22-30 Above high <content [facility] total normal styleCode="Bold"> [place] [Moles/volume] in Carbon Dioxide Medical Serum or Plasma </content>32 Center MEQ/L H<content styleCode="Italic s"> (22-30 MEQ/L)</content> Glucose 74-106 <content [facility] [Mass/volume] in styleCode="Bold"> [facility] hs Serum or Plasma Glucose Medical </content>86 Center MG/DL<content styleCode="Italic s"> (74-106 MG/DL)</content> Potassium 3.5-5.3 Below low <content [facility] [Moles/volume] in normal styleCode="Bold"> [facility] Serum or Plasma Potassium Medical </content>3.4 Center MEQ/L L<content styleCode="Italic s"> (3.5-5.3 MEQ/L)</content> Aspartate 17-59 <content [facility] aminotransferase styleCode="Bold"> [facility] [Enzymatic Aspartate Medical activity/volume] Aminotransferase Center in Serum or Plasma (AST) </content>38 IU/L<content styleCode="Italic s"> (17-59 IU/L)</content> Alkaline 38-126 <content [facility] phosphatase styleCode="Bold"> [place] [Enzymatic Alkaline Medical activity/volume] Phosphatase (ALP) Cente r in Serum or Plasma </content>94 IU/L<content styleCode="Italic s"> (38-126 IU/L)</content> UNK > 60 <content [facility] styleCode="Bold"> [place] EGFR Medical </content>178 Center GFR<content styleCode="Italic s"> (> 60 GFR)</content> Alanine 7-50 <content [facility] aminotransferase styleCode="Bold"> [facility] [Enzymatic Alanine Medical activity/volume] Aminotransferase Center in Serum or Plasma (ALT) </content>19 IU/L<content styleCode="Italic s"> (7-50 IU/L)</content> Calcium 8.4-10. <content [facility] [Mass/volume] in 2 styleCode="Bold"> Stephan hs Serum or Plasma Calcium Medical </content>8.7 Center MG/DL<content styleCode="Italic s"> (8.4-10.2 MG/DL)</content> Albumin 3.5-5.0 <content [facility] [Mass/volume] in styleCode="Bold"> Stephan hs Serum or Plasma Albumin Medical </content>3.6 Center G/DL<content styleCode="Italic s"> (3.5-5.0 G/DL)</content> Bilirubin.total 0.2-1.3 <content [facility] [Mass/volume] in styleCode="Bold"> Stephan hs Serum or Plasma Bilirubin Total Medical </content>0.7 Center MG/DL<content styleCode="Italic s"> (0.2-1.3 MG/DL)</content> ID Date Data Source Liver 07/28/2019 06:25:00 AM EST [facility] Profile.[id number] Name Value Range Interpretation Description Data Sup porting Code Source(s) Document(s ) Aspartate 17-59 <content [facility] aminotransferase styleCode="Bold"> [facility] hs [Enzymatic Aspartate Medical activity/volume] Aminotransferase Center in Serum or Plasma (AST) </content>54 IU/L<content styleCode="Italic s"> (17-59 IU/L)</content> Alanine 7-50 <content [facility] aminotransferase styleCode="Bold"> [facility] hs [Enzymatic Alanine Medical activity/volume] Aminotransferase Center in Serum or Plasma (ALT) </content>39 IU/L<content styleCode="Italic s"> (7-50 IU/L)</content> Alkaline 38-126 <content [facility] phosphatase styleCode="Bold"> [place] [Enzymatic Alkaline Medical activity/volume] Phosphatase (ALP) Cente r in Serum or Plasma </content>77 IU/L<content styleCode="Italic s"> (38-126 IU/L)</content> Bilirubin.total 0.2-1.3 <content [facility] [Mass/volume] in styleCode="Bold"> Stephan hs Serum or Plasma Bilirubin Total Medical </content>0.5 Center MG/DL<content styleCode="Italic s"> (0.2-1.3 MG/DL)</content> Albumin 3.5-5.0 Below low <content [facility] [Mass/volume] in normal styleCode="Bold"> Stephan hs Serum or Plasma Albumin Medical </content>3.3 Center G/DL L<content styleCode="Italic s"> (3.5-5.0 G/DL)</content> UNK 0.0-0.3 <content [facility] styleCode="Bold"> [place] Bilirubin, Direct Medical </content>< 0.2 Center MG/DL<content styleCode="Italic s"> (0.0-0.3 MG/DL)</content> ID Date Data Source HematologyRou.[id number] 07/28/2019 06:25:00 AM [facility] 0500 Name Value Range Interpretation Description Data Sup porting Code Source(s) Document(s ) Leukocytes 4.4-11.0 <content [facility] [#/volume] in styleCode="Bold [facility] Blood by ">White Blood Medical Automated count Cell Count Center </content>6.87 KCUMM<content styleCode="Ital ics"> (4.4-11.0 KCUMM)</content > Erythrocyte mean 80.0-100 <content [facility] corpuscular .0 styleCode="Bold [place] volume [Entitic ">Mean Medical volume] by Corpuscular Center Automated count Volume </content>80.4 FL<content styleCode="Ital ics"> (80.0-100.0 FL)</content> Hematocrit 41.0-53. Below low normal <content [facility] [Volume 0 styleCode="[facility]old [place] Fraction] of ">Hematocrit Medical Blood by </content>29.2 Center Automated count % L<content styleCode="Ital ics"> (41.0-53.0 %)</content> Erythrocytes 4.4-5.9 Below low normal <content [facility] [#/volume] in styleCode="B[facility] [place] Blood by ">Red Blood Medical Automated count Cell Count Center </content>3.63 MCUMM L<content styleCode="Ital ics"> (4.4-5.9 MCUMM)</content > Hemoglobin 13.5-17. Below low normal <content [facility] [Mass/volume] in 5 styleCode="Bold [place] Blood ">Hemoglobin Medical </content>8.8 Center G/DL L<content styleCode="Ital ics"> (13.5-17.5 G/DL)</content> Platelets 130-400 <content [facility] [#/volume] in styleCode="Bold [place] Blood by ">Platelet Medical Automated count Count Center </content>398 KCUMM<content styleCode="Ital ics"> (130-400 KCUMM)</content > Erythrocyte mean 26.0-34. Below low normal <content [facility] corpuscular 0 styleCode="Bold [place] hemoglobin ">Mean Medical [Entitic mass] Corposcular Center by Automated Hemoglobin count </content>24.2 PG L<content styleCode="Ital ics"> (26.0-34.0 PG)</content> Erythrocyte 11.5-14. Above high <content [facility] distribution 5 normal styleCode="[facility] [place] width [Ratio] by ">Red Cell Medical Automated count Distribution Center Width </content>20.0 % H<content styleCode="Ital ics"> (11.5-14.5 %)</content> Erythrocyte mean 32.0-37. Below low normal <content [facility] corpuscular 0 styleCode="Bold [place] hemoglobin ">Mean Corpus. Medical concentration Hgb Center [Mass/volume] by Concentration Automated count (MCHC) </content>30.1 G/DL L<content styleCode="Ital ics"> (32.0-37.0 G/DL)</content> UNK 0.0 <content [facility] styleCode="[facility]old [place] ">Nucleated Red Medical Blood Cell Center Count </content>0.00 KCUMM<content styleCode="Ital ics"> (0.0 KCUMM)</content > UNK 0 <content [facility] styleCode="[facility]old [place] ">Nucleated Red Medical Blood Cell Center </content>0.0 /100<content styleCode="Ital ics"> (0 /100)</content> Platelet mean 8.0-11.0 <content [facility] volume [Entitic styleCode="Bold [place] volume] in Blood ">Mean Platelet Medical by Automated Volume Center count </content>9.1 FL<content styleCode="Ital ics"> (8.0-11.0 FL)</content> ID Date Data Source GFR(Creatinine).[id number] 07/28/2019 06:25:00 AM [facility] 0-0500 Name Value Range Interpretation Code Description Data Pebbles rce(s) Supporting Document(s ) UNK > 60 <content [facility] styleCode="Bold"> Medical Cent er EGFR </content>178 GFR<content styleCode="Italic s"> (> 60 GFR)</content> ID Date Data Source CardiacMarkers.[id number] 07/28/2019 06:25:00 AM [facility] -0500 Name Value Range Interpretation Description Data Sup porting Code Source(s) Document(s ) Troponin < 0.034 <content [facility] I.cardiac styleCode="Bold [place] [Mass/volume ">Troponin I Medical ] in Serum </content>< Center or Plasma 0.012 NG/ML<content styleCode="Ital ics"> (< 0.034 NG/ML)</content > ID Date Data Source [facility].[id number] 07/28/2019 06:25:00 AM EST [facility] Name Value Range Interpretation Description Data Sup porting Code Source(s) Document(s ) Sodium 137-145 <content [facility] [Moles/volume] in styleCode="Bold"> [place] phs Serum or Plasma Sodium Medical </content>141 Center MEQ/L<content styleCode="Italic s"> (137-145 MEQ/L)</content> Carbon dioxide, 22-30 <content [facility] total styleCode="Bold"> [place] [Moles/volume] in Carbon Dioxide Medical Serum or Plasma </content>29 Center MEQ/L<content styleCode="Italic s"> (22-30 MEQ/L)</content> Potassium 3.5-5.3 Below low <content [facility] [Moles/volume] in normal styleCode="Bold"> [place] phs Serum or Plasma Potassium Medical </content>3.2 Center MEQ/L L<content styleCode="Italic s"> (3.5-5.3 MEQ/L)</content> Chloride 98-107 <content [facility] [Moles/volume] in styleCode="Bold"> [place] phs Serum or Plasma Chloride Medical </content>105 Center MEQ/L<content styleCode="Italic s"> (98-107 MEQ/L)</content> UNK > 60 <content [facility] styleCode="Bold"> [place] EGFR Medical </content>178 Center GFR<content styleCode="Italic s"> (> 60 GFR)</content> Calcium 8.4-10. <content [facility] [Mass/volume] in 2 styleCode="Bold"> Stephan hs Serum or Plasma Calcium Medical </content>8.8 Center MG/DL<content styleCode="Italic s"> (8.4-10.2 MG/DL)</content> UNK 9-20 <content [facility] styleCode="Bold"> [place] BUN </content>10 Medical MG/DL<content Center styleCode="Italic s"> (9-20 MG/DL)</content> Glucose 74-106 <content [facility] [Mass/volume] in styleCode="Bold"> Stephan hs Serum or Plasma Glucose Medical </content>88 Center MG/DL<content styleCode="Italic s"> (74-106 MG/DL)</content> Creatinine 0.5-1.3 <content [facility] [Mass/volume] in styleCode="Bold"> [facility] hs Serum or Plasma Creatinine Medical </content>0.5 Center MG/DL<content styleCode="Italic s"> (0.5-1.3 MG/DL)</content> Alkaline 38-126 <content [facility] phosphatase styleCode="Bold"> [place] [Enzymatic Alkaline Medical activity/volume] Phosphatase (ALP) Cente r in Serum or Plasma </content>77 IU/L<content styleCode="Italic s"> (38-126 IU/L)</content> Bilirubin.total 0.2-1.3 <content [facility] [Mass/volume] in styleCode="Bold"> [facility] hs Serum or Plasma Bilirubin Total Medical </content>0.5 Center MG/DL<content styleCode="Italic s"> (0.2-1.3 MG/DL)</content> Alanine 7-50 <content [facility] aminotransferase styleCode="Bold"> [facility] hs [Enzymatic Alanine Medical activity/volume] Aminotransferase Center in Serum or Plasma (ALT) </content>39 IU/L<content styleCode="Italic s"> (7-50 IU/L)</content> Aspartate 17-59 <content [facility] aminotransferase styleCode="Bold"> [facility] hs [Enzymatic Aspartate Medical activity/volume] Aminotransferase Center in Serum or Plasma (AST) </content>54 IU/L<content styleCode="Italic s"> (17-59 IU/L)</content> Albumin 3.5-5.0 Below low <content [facility] [Mass/volume] in normal styleCode="Bold"> Stephan hs Serum or Plasma Albumin Medical </content>3.3 Center G/DL L<content styleCode="Italic s"> (3.5-5.0 G/DL)</content> ID Date Data Source Liver 05/13/2019 11:52:00 AM EST [facility] Profile.[id number] Name Value Range Interpretation Description Data Sup porting Code Source(s) Document(s ) Alanine 7-50 <content [facility] aminotransferase styleCode="Bold"> [facility] hs [Enzymatic Alanine Medical activity/volume] Aminotransferase Center in Serum or Plasma (ALT) </content>25 IU/L<content styleCode="Italic s"> (7-50 IU/L)</content> Aspartate 17-59 <content [facility] aminotransferase styleCode="Bold"> [facility] hs [Enzymatic Aspartate Medical activity/volume] Aminotransferase Center in Serum or Plasma (AST) </content>51 IU/L<content styleCode="Italic s"> (17-59 IU/L)</content> Alkaline 38-126 <content [facility] phosphatase styleCode="Bold"> [place] [Enzymatic Alkaline Medical activity/volume] Phosphatase (ALP) Cente r in Serum or Plasma </content>103 IU/L<content styleCode="Italic s"> (38-126 IU/L)</content> Bilirubin.total 0.2-1.3 <content [facility] [Mass/volume] in styleCode="Bold"> Stephan hs Serum or Plasma Bilirubin Total Medical </content>0.6 Center MG/DL<content styleCode="Italic s"> (0.2-1.3 MG/DL)</content> Albumin 3.5-5.0 Below low <content [facility] [Mass/volume] in normal styleCode="Bold"> Stephan hs Serum or Plasma Albumin Medical </content>3.3 Center G/DL L<content styleCode="Italic s"> (3.5-5.0 G/DL)</content> ID Date Data Source HematologyRou.[id number] 05/13/2019 11:52:00 AM [facility] 0500 Name Value Range Interpretation Description Data Sup porting Code Source(s) Document(s ) Leukocytes 4.4-11.0 <content [facility] [#/volume] in styleCode="Bold [facility] Blood by ">White Blood Medical Automated count Cell Count Center </content>7.23 KCUMM<content styleCode="Ital ics"> (4.4-11.0 KCUMM)</content > Erythrocytes 4.4-5.9 Below low normal <content [facility] [#/volume] in styleCode="Bold [place] Blood by ">Red Blood Medical Automated count Cell Count Center </content>3.74 MCUMM L<content styleCode="Ital ics"> (4.4-5.9 MCUMM)</content > Hemoglobin 13.5-17. Below low normal <content [facility] [Mass/volume] in 5 styleCode="Bold [place] Blood ">Hemoglobin Medical </content>9.9 Center G/DL L<content styleCode="Ital ics"> (13.5-17.5 G/DL)</content> Erythrocyte mean 80.0-100 <content [facility] corpuscular .0 styleCode="Bold [place] volume [Entitic ">Mean Medical volume] by Corpuscular Center Automated count Volume </content>85.0 FL<content styleCode="Ital ics"> (80.0-100.0 FL)</content> Erythrocyte mean 26.0-34. <content [facility] corpuscular 0 styleCode="Bold [place] hemoglobin ">Mean Medical [Entitic mass] Corposcular Center by Automated Hemoglobin count </content>26.5 PG<content styleCode="Ital ics"> (26.0-34.0 PG)</content> Hematocrit 41.0-53. Below low normal <content [facility] [Volume 0 styleCode="Bold [place] Fraction] of ">Hematocrit Medical Blood by </content>31.8 Center Automated count % L<content styleCode="Ital ics"> (41.0-53.0 %)</content> Erythrocyte mean 32.0-37. Below low normal <content [facility] corpuscular 0 styleCode="Bold [place] hemoglobin ">Mean Corpus. Medical concentration Hgb Center [Mass/volume] by Concentration Automated count (MCHC) </content>31.1 G/DL L<content styleCode="Ital ics"> (32.0-37.0 G/DL)</content> Erythrocyte 11.5-14. Above high <content [facility] distribution 5 normal styleCode="Bold [place] width [Ratio] by ">Red Cell Medical Automated count Distribution Center Width </content>19.7 % H<content styleCode="Ital ics"> (11.5-14.5 %)</content> Platelets 130-400 <content [facility] [#/volume] in styleCode="Bold [place] Blood by ">Platelet Medical Automated count Count Center </content>273 KCUMM<content styleCode="Ital ics"> (130-400 KCUMM)</content > Platelet mean 8.0-11.0 <content [facility] volume [Entitic styleCode="Bold [place] volume] in Blood ">Mean Platelet Medical by Automated Volume Center count </content>9.6 FL<content styleCode="Ital ics"> (8.0-11.0 FL)</content> UNK 0 <content [facility] styleCode="Bold [place] ">Nucleated Red Medical Blood Cell Center </content>0.0 /100<content styleCode="Ital ics"> (0 /100)</content> UNK 0.0 <content [facility] styleCode="Bold [place] ">Nucleated Red Medical Blood Cell Center Count </content>0.00 KCUMM<content styleCode="Ital ics"> (0.0 KCUMM)</content > ID Date Data Source GFR(Creatinine).[id number] 05/13/2019 11:52:00 AM [facility] 0-0500 Name Value Range Interpretation Code Description Data Pebbles rce(s) Supporting Document(s ) UNK > 60 <content [facility] styleCode="Bold"> Medical Cent er EGFR </content>178 GFR<content styleCode="Italic s"> (> 60 GFR)</content> ID Date Data Source CHMROUTINECCDA.[id number] 05/13/2019 11:52:00 AM [facility] -0500 Name Value Range Interpretation Description Data Sup porting Code Source(s) Document(s ) UNK >= 1.0 <content [facility] styleCode="Mac [place] d">AG Ratio Medical </content>1.2 Center <content styleCode="Zakia lics"> (>= 1.0 )</content> UNK 2.3-3.5 <content [facility] styleCode="Mac [place] d">Globulin Medical </content>2.8 Center G/DL<content styleCode="Zakia lics"> (2.3-3.5 G/DL)</content > Magnesium 1.6-2.3 Below low normal <content [facility] [Mass/volume] styleCode="Mac [place] in Serum or d">Magnesium Medical Plasma </content>1.5 Center MG/DL L<content styleCode="Zakia lics"> (1.6-2.3 MG/DL)</conten t> Protein 6.3-8.2 Below low normal <content [facility] [Mass/volume] styleCode="Mac [place] in Serum or d">Total Medical Plasma Protein Center </content>6.1 G/DL L<content styleCode="Zakia lics"> (6.3-8.2 G/DL)</content > Phosphate 2.5-4.5 <content [facility] [Mass/volume] styleCode="Mac [place] in Serum or d">Phosphorus Medical Plasma </content>3.7 Center MG/DL<content styleCode="Zakia lics"> (2.5-4.5 MG/DL)</conten t> ID Date Data Source [facility].[id number] 05/13/2019 11:52:00 AM EST [facility] Name Value Range Interpretation Description Data Sup porting Code Source(s) Document(s ) Sodium 137-145 <content [facility] [Moles/volume] in styleCode="Bold"> [facility] Serum or Plasma Sodium Medical </content>137 Center MEQ/L<content styleCode="Italic s"> (137-145 MEQ/L)</content> Potassium 3.5-5.3 <content [facility] [Moles/volume] in styleCode="Bold"> [facility] Serum or Plasma Potassium Medical </content>3.6 Center MEQ/L<content styleCode="Italic s"> (3.5-5.3 MEQ/L)</content> Chloride 98-107 <content [facility] [Moles/volume] in styleCode="Bold"> [place] phs Serum or Plasma Chloride Medical </content>104 Center MEQ/L<content styleCode="Italic s"> (98-107 MEQ/L)</content> Creatinine 0.5-1.3 <content [facility] [Mass/volume] in styleCode="Bold"> Stephan hs Serum or Plasma Creatinine Medical </content>0.5 Center MG/DL<content styleCode="Italic s"> (0.5-1.3 MG/DL)</content> Carbon dioxide, 22-30 <content [facility] total styleCode="Bold"> [place] [Moles/volume] in Carbon Dioxide Medical Serum or Plasma </content>25 Center MEQ/L<content styleCode="Italic s"> (22-30 MEQ/L)</content> UNK 9-20 Below low <content [facility] normal styleCode="Bold"> [place] BUN </content>7 Medical MG/DL L<content Center styleCode="Italic s"> (9-20 MG/DL)</content> Calcium 8.4-10. <content [facility] [Mass/volume] in 2 styleCode="Bold"> Stephan hs Serum or Plasma Calcium Medical </content>9.2 Center MG/DL<content styleCode="Italic s"> (8.4-10.2 MG/DL)</content> UNK > 60 <content [facility] styleCode="Bold"> [place] EGFR Medical </content>178 Center GFR<content styleCode="Italic s"> (> 60 GFR)</content> Glucose 74-106 <content [facility] [Mass/volume] in styleCode="Bold"> Stephan hs Serum or Plasma Glucose Medical </content>104 Center MG/DL<content styleCode="Italic s"> (74-106 MG/DL)</content> Aspartate 17-59 <content [facility] aminotransferase styleCode="Bold"> Stephan hs [Enzymatic Aspartate Medical activity/volume] Aminotransferase Center in Serum or Plasma (AST) </content>51 IU/L<content styleCode="Italic s"> (17-59 IU/L)</content> Alanine 7-50 <content [facility] aminotransferase styleCode="Bold"> [facility] hs [Enzymatic Alanine Medical activity/volume] Aminotransferase Center in Serum or Plasma (ALT) </content>25 IU/L<content styleCode="Italic s"> (7-50 IU/L)</content> Bilirubin.total 0.2-1.3 <content [facility] [Mass/volume] in styleCode="Bold"> Stephan hs Serum or Plasma Bilirubin Total Medical </content>0.6 Center MG/DL<content styleCode="Italic s"> (0.2-1.3 MG/DL)</content> Albumin 3.5-5.0 Below low <content [facility] [Mass/volume] in normal styleCode="Bold"> Stephan hs Serum or Plasma Albumin Medical </content>3.3 Center G/DL L<content styleCode="Italic s"> (3.5-5.0 G/DL)</content> Alkaline 38-126 <content [facility] phosphatase styleCode="Bold"> [facility] [Enzymatic Alkaline Medical activity/volume] Phosphatase (ALP) Cente r in Serum or Plasma </content>103 IU/L<content styleCode="Italic s"> (38-126 IU/L)</content> ID Date Data Source HematologyRou.[id number] 05/10/2019 05:50:00 AM [facility] 0500 Name Value Range Interpretation Description Data Sup porting Code Source(s) Document(s ) Leukocytes 4.4-11.0 <content [facility] [#/volume] in styleCode="Bold [place] Blood by ">White Blood Medical Automated count Cell Count Center </content>7.38 KCUMM<content styleCode="Ital ics"> (4.4-11.0 KCUMM)</content > Erythrocytes 4.4-5.9 Below low normal <content [facility] [#/volume] in styleCode="Bold [place] Blood by ">Red Blood Medical Automated count Cell Count Center </content>3.61 MCUMM L<content styleCode="Ital ics"> (4.4-5.9 MCUMM)</content > Hemoglobin 13.5-17. Below low normal <content [facility] [Mass/volume] in 5 styleCode="Bold [facility] Blood ">Hemoglobin Medical </content>9.6 Center G/DL L<content styleCode="Ital ics"> (13.5-17.5 G/DL)</content> Hematocrit 41.0-53. Below low normal <content [facility] [Volume 0 styleCode="Bold [facility] Fraction] of ">Hematocrit Medical Blood by </content>30.5 Center Automated count % L<content styleCode="Ital ics"> (41.0-53.0 %)</content> Erythrocyte mean 26.0-34. <content [facility] corpuscular 0 styleCode="Bold [place] hemoglobin ">Mean Medical [Entitic mass] Corposcular Center by Automated Hemoglobin count </content>26.6 PG<content styleCode="Ital ics"> (26.0-34.0 PG)</content> Erythrocyte mean 80.0-100 <content [facility] corpuscular .0 styleCode="Bold [place] volume [Entitic ">Mean Medical volume] by Corpuscular Center Automated count Volume </content>84.5 FL<content styleCode="Ital ics"> (80.0-100.0 FL)</content> Erythrocyte mean 32.0-37. Below low normal <content [facility] corpuscular 0 styleCode="Bold [place] hemoglobin ">Mean Corpus. Medical concentration Hgb Center [Mass/volume] by Concentration Automated count (MCHC) </content>31.5 G/DL L<content styleCode="Ital ics"> (32.0-37.0 G/DL)</content> Platelets 130-400 <content [facility] [#/volume] in styleCode="Bold [place] Blood by ">Platelet Medical Automated count Count Center </content>214 KCUMM<content styleCode="Ital ics"> (130-400 KCUMM)</content > Erythrocyte 11.5-14. Above high <content [facility] distribution 5 normal styleCode="Bold [place] width [Ratio] by ">Red Cell Medical Automated count Distribution Center Width </content>19.6 % H<content styleCode="Ital ics"> (11.5-14.5 %)</content> Platelet mean 8.0-11.0 <content [facility] volume [Entitic styleCode="Bold [place] volume] in Blood ">Mean Platelet Medical by Automated Volume Center count </content>10.1 FL<content styleCode="Ital ics"> (8.0-11.0 FL)</content> UNK 0 <content [facility] styleCode="Bold [place] ">Nucleated Red Medical Blood Cell Center </content>0.0 /100<content styleCode="Ital ics"> (0 /100)</content> UNK 0.0 <content [facility] styleCode="Bold [facility] ">Nucleated Red Medical Blood Cell Center Count </content>0.00 KCUMM<content styleCode="Ital ics"> (0.0 KCUMM)</content > ID Date Data Source GFR(Creatinine).[id number] 05/10/2019 05:50:00 AM [facility] 0-0500 Name Value Range Interpretation Code Description Data Pebbles rce(s) Supporting Document(s ) UNK > 60 <content [facility] styleCode="Bold"> Medical Cent er EGFR </content>178 GFR<content styleCode="Italic s"> (> 60 GFR)</content> ID Date Data Source [facility].[id number] 05/10/2019 05:50:00 AM [facility] -0500 Name Value Range Interpretation Description Data Sup porting Code Source(s) Document(s ) Phosphate 2.5-4.5 <content [facility] [Mass/volume] styleCode="Mac [place] in Serum or d">Phosphorus Medical Plasma </content>4.2 Center MG/DL<content styleCode="Zakia lics"> (2.5-4.5 MG/DL)</conten t> Magnesium 1.6-2.3 Below low normal <content [facility] [Mass/volume] styleCode="Mac [place] in Serum or d">Magnesium Medical Plasma </content>1.4 Center MG/DL L<content styleCode="Zakia lics"> (1.6-2.3 MG/DL)</conten t> ID Date Data Source [id number] 05/10/2019 05:50:00 AM EST [facility] Name Value Range Interpretation Description Data Sup porting Code Source(s) Document(s ) Sodium 137-145 <content [facility] [Moles/volume] styleCode="Mac [place] in Serum or d">Sodium Medical Plasma </content>138 Center MEQ/L<content styleCode="Zakia lics"> (137-145 MEQ/L)</conten t> Chloride 98-107 <content [facility] [Moles/volume] styleCode="Mac [place] in Serum or d">Chloride Medical Plasma </content>103 Center MEQ/L<content styleCode="Zakia lics"> (98-107 MEQ/L)</conten t> Potassium 3.5-5.3 Below lower panic <content [facility] [Moles/volume] limits styleCode="Mac [place] in Serum or d">Potassium Medical Plasma </content><con Center tent styleCode="Mac d">3.0 MEQ/L LL</content><c ontent styleCode="Zakia lics"> (3.5-5.3 MEQ/L)</conten t> Carbon 22-30 <content [facility] dioxide, total styleCode="Mac [place] [Moles/volume] d">Carbon Medical in Serum or Dioxide Center Plasma </content>26 MEQ/L<content styleCode="Zakia lics"> (22-30 MEQ/L)</conten t> UNK 9-20 Below low normal <content [facility] styleCode="Mac [place] d">BUN Medical </content>4 Center MG/DL L<content styleCode="Zakai lics"> (9-20 MG/DL)</conten t> Glucose 74-106 <content [facility] [Mass/volume] styleCode="Mac [place] in Serum or d">Glucose Medical Plasma </content>95 Center MG/DL<content styleCode="Zakia lics"> (74-106 MG/DL)</conten t> Creatinine 0.5-1.3 <content [facility] [Mass/volume] styleCode="Mac [place] in Serum or d">Creatinine Medical Plasma </content>0.5 Center MG/DL<content styleCode="Zakia lics"> (0.5-1.3 MG/DL)</conten t> Calcium 8.4-10.2 <content [facility] [Mass/volume] styleCode="Mac Jacomes in Serum or d">Calcium Medical Plasma </content>8.6 Center MG/DL<content styleCode="Zakia lics"> (8.4-10.2 MG/DL)</conten t> UNK > 60 <content [facility] styleCode="Mac Quiros d">EGFR Medical </content>178 Center GFR<content styleCode="Zakia lics"> (> 60 GFR)</content> ID Date Data Source Liver 05/09/2019 12:46:00 PM EST [facility] Profile.[id number] Name Value Range Interpretation Description Data Sup porting Code Source(s) Document(s ) Alanine 7-50 <content [facility] aminotransferase styleCode="Bold"> [facility] [Enzymatic Alanine Medical activity/volume] Aminotransferase Center in Serum or Plasma (ALT) </content>14 IU/L<content styleCode="Italic s"> (7-50 IU/L)</content> Aspartate 17-59 <content [facility] aminotransferase styleCode="Bold"> [facility] [Enzymatic Aspartate Medical activity/volume] Aminotransferase Center in Serum or Plasma (AST) </content>30 IU/L<content styleCode="Italic s"> (17-59 IU/L)</content> Bilirubin.total 0.2-1.3 <content [facility] [Mass/volume] in styleCode="Bold"> [facility] Serum or Plasma Bilirubin Total Medical </content>0.8 Center MG/DL<content styleCode="Italic s"> (0.2-1.3 MG/DL)</content> Alkaline 38-126 <content [facility] phosphatase styleCode="Bold"> [facility] [Enzymatic Alkaline Medical activity/volume] Phosphatase (ALP) Cente r in Serum or Plasma </content>117 IU/L<content styleCode="Italic s"> (38-126 IU/L)</content> Albumin 3.5-5.0 Below low <content [facility] [Mass/volume] in normal styleCode="Bold"> Stephan hs Serum or Plasma Albumin Medical </content>3.1 Center G/DL L<content styleCode="Italic s"> (3.5-5.0 G/DL)</content> ID Date Data Source GFR(Creatinine).[id number] 05/09/2019 12:46:00 PM [facility] 0-0500 Name Value Range Interpretation Code Description Data Pebbles rce(s) Supporting Document(s ) UNK > 60 <content [facility] styleCode="Bold"> Medical Cent er EGFR </content>178 GFR<content styleCode="Italic s"> (> 60 GFR)</content> ID Date Data Source MROUTINECCDA.[id number] 05/09/2019 12:46:00 PM [facility] -0500 Name Value Range Interpretation Description Data Sup porting Code Source(s) Document(s ) UNK >= 1.0 <content [facility] styleCode="Mac [place] d">AG Ratio Medical </content>1.1 Center <content styleCode="Zakia lics"> (>= 1.0 )</content> UNK 2.3-3.5 <content [facility] styleCode="Mac [place] d">Globulin Medical </content>2.7 Center G/DL<content styleCode="Zakia lics"> (2.3-3.5 G/DL)</content > Magnesium 1.6-2.3 Below low normal <content [facility] [Mass/volume] styleCode="Mac [place] in Serum or d">Magnesium Medical Plasma </content>1.3 Center MG/DL L<content styleCode="Zakia lics"> (1.6-2.3 MG/DL)</conten t> Protein 6.3-8.2 Below low normal <content [facility] [Mass/volume] styleCode="Mac [place] in Serum or d">Total Medical Plasma Protein Center </content>5.8 G/DL L<content styleCode="Zakia lics"> (6.3-8.2 G/DL)</content > Phosphate 2.5-4.5 <content [facility] [Mass/volume] styleCode="Mac [place] in Serum or d">Phosphorus Medical Plasma </content>3.5 Center MG/DL<content styleCode="Zakia lics"> (2.5-4.5 MG/DL)</conten t> ID Date Data Source [facility].[id number] 05/09/2019 12:46:00 PM EST [facility] Name Value Range Interpretation Description Data Sup porting Code Source(s) Document(s ) Sodium 137-145 Below low <content [facility] [Moles/volume] in normal styleCode="Bold"> [facility] Serum or Plasma Sodium Medical </content>136 Center MEQ/L L<content styleCode="Italic s"> (137-145 MEQ/L)</content> Chloride 98-107 <content [facility] [Moles/volume] in styleCode="Bold"> [facility] Serum or Plasma Chloride Medical </content>102 Center MEQ/L<content styleCode="Italic s"> (98-107 MEQ/L)</content> Potassium 3.5-5.3 Below low <content [facility] [Moles/volume] in normal styleCode="Bold"> [facility] Serum or Plasma Potassium Medical </content>3.1 Center MEQ/L L<content styleCode="Italic s"> (3.5-5.3 MEQ/L)</content> Carbon dioxide, 22-30 <content [facility] total styleCode="Bold"> [facility] [Moles/volume] in Carbon Dioxide Medical Serum or Plasma </content>24 Center MEQ/L<content styleCode="Italic s"> (22-30 MEQ/L)</content> UNK 9-20 Below low <content [facility] normal styleCode="Bold"> [facility] BUN </content>5 Medical MG/DL L<content Center styleCode="Italic s"> (9-20 MG/DL)</content> Creatinine 0.5-1.3 <content [facility] [Mass/volume] in styleCode="Bold"> [facility] Serum or Plasma Creatinine Medical </content>0.5 Center MG/DL<content styleCode="Italic s"> (0.5-1.3 MG/DL)</content> Glucose 74-106 Above high <content [facility] [Mass/volume] in normal styleCode="Bold"> [facility] Serum or Plasma Glucose Medical </content>120 Center MG/DL H<content styleCode="Italic s"> (74-106 MG/DL)</content> Calcium 8.4-10. <content [facility] [Mass/volume] in 2 styleCode="Bold"> [facility] Serum or Plasma Calcium Medical </content>8.5 Center MG/DL<content styleCode="Italic s"> (8.4-10.2 MG/DL)</content> UNK > 60 <content [facility] styleCode="Bold"> [facility] EGFR Medical </content>178 Center GFR<content styleCode="Italic s"> (> 60 GFR)</content> Aspartate 17-59 <content [facility] aminotransferase styleCode="Bold"> [facility] [Enzymatic Aspartate Medical activity/volume] Aminotransferase Center in Serum or Plasma (AST) </content>30 IU/L<content styleCode="Italic s"> (17-59 IU/L)</content> Alanine 7-50 <content [facility] aminotransferase styleCode="Bold"> [facility] [Enzymatic Alanine Medical activity/volume] Aminotransferase Center in Serum or Plasma (ALT) </content>14 IU/L<content styleCode="Italic s"> (7-50 IU/L)</content> Alkaline 38-126 <content [facility] phosphatase styleCode="Bold"> [facility] [Enzymatic Alkaline Medical activity/volume] Phosphatase (ALP) Cente r in Serum or Plasma </content>117 IU/L<content styleCode="Italic s"> (38-126 IU/L)</content> Bilirubin.total 0.2-1.3 <content [facility] [Mass/volume] in styleCode="Bold"> [facility] Serum or Plasma Bilirubin Total Medical </content>0.8 Center MG/DL<content styleCode="Italic s"> (0.2-1.3 MG/DL)</content> Albumin 3.5-5.0 Below low <content [facility] [Mass/volume] in normal styleCode="Bold"> [facility] Serum or Plasma Albumin Medical </content>3.1 Center G/DL L<content styleCode="Italic s"> (3.5-5.0 G/DL)</content> ID Date Data Source Liver 05/08/2019 07:35:00 AM EST [facility] Profile.[id number] Name Value Range Interpretation Description Data Sup porting Code Source(s) Document(s ) Aspartate 17-59 <content [facility] aminotransferase styleCode="Bold"> [facility] [Enzymatic Aspartate Medical activity/volume] Aminotransferase Center in Serum or Plasma (AST) </content>29 IU/L<content styleCode="Italic s"> (17-59 IU/L)</content> Alanine 7-50 <content [facility] aminotransferase styleCode="Bold"> [facility] [Enzymatic Alanine Medical activity/volume] Aminotransferase Center in Serum or Plasma (ALT) </content>14 IU/L<content styleCode="Italic s"> (7-50 IU/L)</content> Alkaline 38-126 <content [facility] phosphatase styleCode="Bold"> [facility] [Enzymatic Alkaline Medical activity/volume] Phosphatase (ALP) Cente r in Serum or Plasma </content>118 IU/L<content styleCode="Italic s"> (38-126 IU/L)</content> Bilirubin.total 0.2-1.3 Above high <content [facility] [Mass/volume] in normal styleCode="Bold"> [facility] Serum or Plasma Bilirubin Total Medical </content>1.5 Center MG/DL H<content styleCode="Italic s"> (0.2-1.3 MG/DL)</content> Albumin 3.5-5.0 Below low <content [facility] [Mass/volume] in normal styleCode="Bold"> [facility] Serum or Plasma Albumin Medical </content>3.1 Center G/DL L<content styleCode="Italic s"> (3.5-5.0 G/DL)</content> ID Date Data Source LIPID.[id number] 05/08/2019 07:35:00 AM EST [facility] Name Value Range Interpretation Description Data Sup porting Code Source(s) Document(s ) Triglyceride < 150 <content [facility] [Mass/volume] in styleCode="Mac Ishaan Serum or Plasma d">Triglycerid [facility] </content>104 MG/DL<content styleCode="Zakia lics"> (< 150 MG/DL)</conten t> UNK > 60 Below low normal <content [facility] styleCode="Mac [place] d">HDL- Medical Cholesterol Center </content>59 MG/DL L<content styleCode="Zakia lics"> (> 60 MG/DL)</conten t> Cholesterol -<200 <content [facility] [Mass/volume] in styleCode="Mac Ish[place] Serum or Plasma d">Cholesterol Medical </content>154 Center MG/DL<content styleCode="Zakia lics"> (-<200 MG/DL)</conten t> UNK < 100 <content [facility] styleCode="Mac [place] d">LDL-Cholest [facility] </content>74 MG/DL<content styleCode="Zakia lics"> (< 100 MG/DL)</conten t> ID Date Data Source HematologyRou.[id number] 05/08/2019 07:35:00 AM EST [facility] 0500 Name Value Range Interpretation Description Data Sup porting Code Source(s) Document(s ) Leukocytes 4.4-11.0 <content [facility] [#/volume] in styleCode="Bold Ish[place] Blood by ">White Blood Medical Automated count Cell Count Center </content>6.17 KCUMM<content styleCode="Ital ics"> (4.4-11.0 KCUMM)</content > Erythrocytes 4.4-5.9 Below low normal <content [facility] [#/volume] in styleCode="Bold Ish[place] Blood by ">Red Blood Medical Automated count Cell Count Center </content>3.66 MCUMM L<content styleCode="Ital ics"> (4.4-5.9 MCUMM)</content > Hemoglobin 13.5-17. Below low normal <content [facility] [Mass/volume] in 5 styleCode="Bold Ish[place] Blood ">Hemoglobin Medical </content>9.4 Center G/DL L<content styleCode="Ital ics"> (13.5-17.5 G/DL)</content> Erythrocyte mean 80.0-100 <content [facility] corpuscular .0 styleCode="Bold Sihaan volume [Entitic ">Mean Medical volume] by Corpuscular Center Automated count Volume </content>82.8 FL<content styleCode="Ital ics"> (80.0-100.0 FL)</content> Hematocrit 41.0-53. Below low normal <content [facility] [Volume 0 styleCode="Bold Ish[place] Fraction] of ">Hematocrit Medical Blood by </content>30.3 Center Automated count % L<content styleCode="Ital ics"> (41.0-53.0 %)</content> Erythrocyte mean 32.0-37. Below low normal <content [facility] corpuscular 0 styleCode="Bold [place] hemoglobin ">Mean Corpus. Medical concentration Hgb Center [Mass/volume] by Concentration Automated count (MCHC) </content>31.0 G/DL L<content styleCode="Ital ics"> (32.0-37.0 G/DL)</content> Erythrocyte mean 26.0-34. Below low normal <content [facility] corpuscular 0 styleCode="Bold [place] hemoglobin ">Mean Medical [Entitic mass] Corposcular Center by Automated Hemoglobin count </content>25.7 PG L<content styleCode="Ital ics"> (26.0-34.0 PG)</content> Erythrocyte 11.5-14. Above high <content [facility] distribution 5 normal styleCode="Bold Ish[place] width [Ratio] by ">Red Cell Medical Automated count Distribution Center Width </content>18.3 % H<content styleCode="Ital ics"> (11.5-14.5 %)</content> Platelets 130-400 <content [facility] [#/volume] in styleCode="Bold [place] Blood by ">Platelet Medical Automated count Count Center </content>180 KCUMM<content styleCode="Ital ics"> (130-400 KCUMM)</content > UNK 0 <content [facility] styleCode="Bold Ish[place] ">Nucleated Red Medical Blood Cell Center </content>0.0 /100<content styleCode="Ital ics"> (0 /100)</content> Platelet mean 8.0-11.0 <content [facility] volume [Entitic styleCode="Bold Ishaan volume] in Blood ">Mean Platelet Medical by Automated Volume Center count </content>9.5 FL<content styleCode="Ital ics"> (8.0-11.0 FL)</content> UNK 0.0 <content [facility] styleCode="Bold [place] ">Nucleated Red Medical Blood Cell Center Count </content>0.00 KCUMM<content styleCode="Ital ics"> (0.0 KCUMM)</content > ID Date Data Source GFR(Creatinine).[id number] 05/08/2019 07:35:00 AM [facility] 0-0500 Name Value Range Interpretation Code Description Data Pebbles rce(s) Supporting Document(s ) UNK > 60 <content [facility] styleCode="Bold"> Medical Cent er EGFR </content>178 GFR<content styleCode="Italic s"> (> 60 GFR)</content> ID Date Data Source CHMROUTINECCDA.[id number] 05/08/2019 07:35:00 AM [facility] -0500 Name Value Range Interpretation Description Data Sup porting Code Source(s) Document(s ) UNK >= 1.0 <content [facility] styleCode="Mac Ish[place] d">AG Ratio Medical </content>1.1 Center <content styleCode="Zakia lics"> (>= 1.0 )</content> UNK 2.3-3.5 <content [facility] styleCode="Mac Ish[place] d">Globulin Medical </content>2.7 Center G/DL<content styleCode="Zakia lics"> (2.3-3.5 G/DL)</content > Protein 6.3-8.2 Below low normal <content [facility] [Mass/volume] styleCode="Mac Ishaan in Serum or d">Total Medical Plasma Protein Center </content>5.8 G/DL L<content styleCode="Zakia lics"> (6.3-8.2 G/DL)</content > Magnesium 1.6-2.3 Below lower panic <content [facility] [Mass/volume] limits styleCode="Mac Ishaan in Serum or d">Magnesium Medical Plasma </content><con Center tent styleCode="Mac d">1.0 MG/DL LL</content><c ontent styleCode="Zakia lics"> (1.6-2.3 MG/DL)</conten t> ID Date Data Source [facility].[id number] 05/08/2019 07:35:00 AM EST [facility] Name Value Range Interpretation Description Data Sup porting Code Source(s) Document(s ) Sodium 137-145 Below low <content Saint [Moles/volume] in normal styleCode="Bold"> [facility] Serum or Plasma Sodium Medical </content>136 Center MEQ/L L<content styleCode="Italic s"> (137-145 MEQ/L)</content> Chloride 98-107 <content [facility] [Moles/volume] in styleCode="Bold"> [facility] Serum or Plasma Chloride Medical </content>99 Center MEQ/L<content styleCode="Italic s"> (98-107 MEQ/L)</content> Potassium 3.5-5.3 Below lower <content [facility] [Moles/volume] in panic limits styleCode="Bold"> [facility] Serum or Plasma Potassium Medical </content><conten Center t styleCode="Bold"> 2.8 MEQ/L LL</content><cont ent styleCode="Italic s"> (3.5-5.3 MEQ/L)</content> UNK 9-20 Below low <content [facility] normal styleCode="Bold"> [facility] BUN </content>5 Medical MG/DL L<content Center styleCode="Italic s"> (9-20 MG/DL)</content> Carbon dioxide, 22-30 <content [facility] total styleCode="Bold"> [facility] [Moles/volume] in Carbon Dioxide Medical Serum or Plasma </content>28 Center MEQ/L<content styleCode="Italic s"> (22-30 MEQ/L)</content> Creatinine 0.5-1.3 <content [facility] [Mass/volume] in styleCode="Bold"> [facility] Serum or Plasma Creatinine Medical </content>0.5 Center MG/DL<content styleCode="Italic s"> (0.5-1.3 MG/DL)</content> Glucose 74-106 <content [facility] [Mass/volume] in styleCode="Bold"> [facility] Serum or Plasma Glucose Medical </content>96 Center MG/DL<content styleCode="Italic s"> (74-106 MG/DL)</content> UNK > 60 <content [facility] styleCode="Bold"> [facility] EGFR Medical </content>178 Center GFR<content styleCode="Italic s"> (> 60 GFR)</content> Calcium 8.4-10. Below low <content [facility] [Mass/volume] in 2 normal styleCode="Bold"> [facility] Serum or Plasma Calcium Medical </content>8.2 Center MG/DL L<content styleCode="Italic s"> (8.4-10.2 MG/DL)</content> Aspartate 17-59 <content [facility] aminotransferase styleCode="Bold"> [facility] [Enzymatic Aspartate Medical activity/volume] Aminotransferase Center in Serum or Plasma (AST) </content>29 IU/L<content styleCode="Italic s"> (17-59 IU/L)</content> Alanine 7-50 <content [facility] aminotransferase styleCode="Bold"> [facility] [Enzymatic Alanine Medical activity/volume] Aminotransferase Center in Serum or Plasma (ALT) </content>14 IU/L<content styleCode="Italic s"> (7-50 IU/L)</content> Alkaline 38-126 <content [facility] phosphatase styleCode="Bold"> [facility] [Enzymatic Alkaline Medical activity/volume] Phosphatase (ALP) Cente r in Serum or Plasma </content>118 IU/L<content styleCode="Italic s"> (38-126 IU/L)</content> Bilirubin.total 0.2-1.3 Above high <content [facility] [Mass/volume] in normal styleCode="Bold"> [facility] Serum or Plasma Bilirubin Total Medical </content>1.5 Center MG/DL H<content styleCode="Italic s"> (0.2-1.3 MG/DL)</content> Albumin 3.5-5.0 Below low <content [facility] [Mass/volume] in normal styleCode="Bold"> [facility] Serum or Plasma Albumin Medical </content>3.1 Center G/DL L<content styleCode="Italic s"> (3.5-5.0 G/DL)</content> ID Date Data Source Urinalysis.[id number] 05/07/2019 04:00:00 PM EST [facility] 0 Name Value Range Interpretation Description Data Sup porting Code Source(s) Document(s ) Color of Urine YELLOW <content [facility] styleCode="Mac [place] d">Color, Medical Urine Center </content>AMBE R <content styleCode="Zakia lics"> (YELLOW )</content> UNK CLEAR <content [facility] styleCode="Mac [place] d">Urine Medical Clarity Center </content>CLOU DY <content styleCode="Zakia lics"> (CLEAR )</content> Glucose NEGATIVE <content [facility] [Mass/volume] styleCode="Mac Jacomes in Urine by d">Urine Medical Test strip Glucose Center </content>NEGA TIVE MG/DL<content styleCode="Zakia lics"> (NEGATIVE MG/DL)</conten t> Ketones NEGATIVE <content [facility] [Mass/volume] styleCode="Mac Ish[place] in Urine by d">Urine Medical Test strip Ketone Center </content>NEGA TIVE MG/DL<content styleCode="Zakia lics"> (NEGATIVE MG/DL)</conten t> UNK NEGATIVE <content [facility] styleCode="Mac [place] d">Urine Medical Bilirubin Center </content>NEGA TIVE <content styleCode="Zakia lics"> (NEGATIVE )</content> Specific 1.015-1.02 Below low normal <content [facility] gravity of 5 styleCode="Mac [place] Urine by Test d">Urine Medical strip Specific Center [place] </content>1.01 0 L<content styleCode="Zakia lics"> (1.015-1.025 )</content> Hemoglobin NEGATIVE <content Saint [Presence] in styleCode="Mac [place] Urine by Test d">Urine Blood Medical strip </content>TRAC Center E <content styleCode="Zakia lics"> (NEGATIVE )</content> pH of Urine by 4.5-8.0 Above high <content Saint Test strip normal styleCode="Mac Ishaan d">Urine pH Medical </content>>= Center 9.0 H<content styleCode="Zakia lics"> (4.5-8.0 )</content> Urobilinogen 0.2-1.0 <content [facility] [Units/volume] styleCode="Mac Ish[place] in Urine by d">Urine Medical Test strip Urobilinogen Center </content>0.2 MG/DL<content styleCode="Zakia lics"> (0.2-1.0 MG/DL)</conten t> Protein NEGATIVE <content [facility] [Mass/volume] styleCode="Mac Ish[place] in Urine by d">Urine Medical Test strip Protein Center </content>NEGA TIVE MG/DL<content styleCode="Zakia lics"> (NEGATIVE MG/DL)</conten t> Leukocyte NEGATIVE <content [facility] esterase styleCode="Mac [place] [Presence] in d">Urine Medical Urine by Test Leukocyte Center strip </content>TRAC E <content styleCode="Zakia lics"> (NEGATIVE )</content> Nitrite NEGATIVE <content Saint [Presence] in styleCode="Mac [place] Urine by Test d">Urine Medical strip Nitrite Center </content>NEGA TIVE <content styleCode="Zakia lics"> (NEGATIVE )</content> UNK 0-3 <content Saint styleCode="Mac Ish[place] d">Urine White Medical Blood Cell Center </content>20 - 50 HPF<content styleCode="Zakia lics"> (0-3 HPF)</content> UNK 0-3 <content Saint styleCode="Mac Jacomes d">Urine Red Medical Blood Cell Center </content>0-3 HPF<content styleCode="Zakia lics"> (0-3 HPF)</content> UNK NONE <content [facility] styleCode="Mac Jacomes d">Amorphous Medical Crystal Center </content>MODE RATE HPF<content styleCode="Zakia lics"> (NONE HPF)</content> UNK NEGATIVE <content [facility] styleCode="Mac Jacomes d">Urine Medical Bacteria Center </content>FEW HPF<content styleCode="Zakia lics"> (NEGATIVE HPF)</content> UNK NONE SEEN <content styleCode="Mac Jacomes d">[facility] </content>10 - 20 HPF<content styleCode="Zakia lics"> (NONE SEEN HPF)</content> ID Date Data Source JORGE LUISMROUTMANJULA.[id number] 05/07/2019 04:00:00 PM [facility] -0500 Name Value Range Interpretation Description Data Sup porting Code Source(s) Document(s ) Cannabinoids <content Saint [Presence] in styleCode="Mac [facility] Urine by Screen d">Cannabinoid Medical method >50 ng/mL s Center </content>NEGA TIVE NG/ML (Reference Range: not available)<br/ > ID Date Data Source Liver 05/07/2019 02:18:00 PM [facility] Profile.[id number] Name Value Range Interpretation Description Data Sup porting Code Source(s) Document(s ) Aspartate <content [facility] aminotransferase styleCode="Bold"> [facility] [Enzymatic Aspartate Medical activity/volume] Aminotransferase Center in Serum or Plasma (AST) </content>Test not performed. IU/L (Reference Range: not available)
Alanine <content [facility] aminotransferase styleCode="Bold"> [facility] [Enzymatic Alanine Medical activity/volume] Aminotransferase Center in Serum or Plasma (ALT) </content>Test not performed. IU/L (Reference Range: not available)
Alkaline <content Saint phosphatase styleCode="Bold"> [facility] [Enzymatic Alkaline Medical activity/volume] Phosphatase (ALP) Cente r in Serum or Plasma </content>Test not performed. IU/L (Reference Range: not available)
Bilirubin.total 0.2-1.3 Above high <content [facility] [Mass/volume] in normal styleCode="Bold"> [facility] Serum or Plasma Bilirubin Total Medical </content>1.5 Center MG/DL H<content styleCode="Italic s"> (0.2-1.3 MG/DL)</content> Albumin 3.5-5.0 Below low <content [facility] [Mass/volume] in normal styleCode="Bold"> [facility] Serum or Plasma Albumin Medical </content>3.3 Center G/DL L<content styleCode="Italic s"> (3.5-5.0 G/DL)</content> ID Date Data Source GFR(Creatinine).[id number] 05/07/2019 02:18:00 PM [facility] 0-0500 Name Value Range Interpretation Code Description Data Pebbles rce(s) Supporting Document(s ) UNK > 60 <content [facility] styleCode="Bold"> Medical Cent er EGFR </content>178 GFR<content styleCode="Italic s"> (> 60 GFR)</content> ID Date Data Source [facility].[id number] 05/07/2019 02:18:00 PM EST [facility] Name Value Range Interpretation Description Data Sup porting Code Source(s) Document(s ) Sodium 137-145 <content Saint [Moles/volume] in styleCode="Bold"> [facility] Serum or Plasma Sodium Medical </content>137 Center MEQ/L<content styleCode="Italic s"> (137-145 MEQ/L)</content> Potassium <content Saint [Moles/volume] in styleCode="Bold"> [facility] Serum or Plasma Potassium Medical </content>Test Center not performed. MEQ/L (Reference Range: not available)
Chloride 98-107 <content Saint [Moles/volume] in styleCode="Bold"> [facility] Serum or Plasma Chloride Medical </content>99 Center MEQ/L<content styleCode="Italic s"> (98-107 MEQ/L)</content> UNK 9-20 Below low <content [facility] normal styleCode="Bold"> [facility] BUN </content>8 Medical MG/DL L<content Center styleCode="Italic s"> (9-20 MG/DL)</content> Carbon dioxide, 22-30 <content [facility] total styleCode="Bold"> [facility] [Moles/volume] in Carbon Dioxide Medical Serum or Plasma </content>28 Center MEQ/L<content styleCode="Italic s"> (22-30 MEQ/L)</content> Glucose 74-106 Above high <content [facility] [Mass/volume] in normal styleCode="Bold"> [facility] Serum or Plasma Glucose Medical </content>131 Center MG/DL H<content styleCode="Italic s"> (74-106 MG/DL)</content> Creatinine 0.5-1.3 <content [facility] [Mass/volume] in styleCode="Bold"> [facility] Serum or Plasma Creatinine Medical </content>0.5 Center MG/DL<content styleCode="Italic s"> (0.5-1.3 MG/DL)</content> Calcium 8.4-10. Below low <content [facility] [Mass/volume] in 2 normal styleCode="Bold"> [facility] Serum or Plasma Calcium Medical </content>8.3 Center MG/DL L<content styleCode="Italic s"> (8.4-10.2 MG/DL)</content> UNK > 60 <content [facility] styleCode="Bold"> [facility] EGFR Medical </content>178 Center GFR<content styleCode="Italic s"> (> 60 GFR)</content> Aspartate <content [facility] aminotransferase styleCode="Bold"> [facility] [Enzymatic Aspartate Medical activity/volume] Aminotransferase Center in Serum or Plasma (AST) </content>Test not performed. IU/L (Reference Range: not available)
Bilirubin.total 0.2-1.3 Above high <content [facility] [Mass/volume] in normal styleCode="Bold"> [facility] Serum or Plasma Bilirubin Total Medical </content>1.5 Center MG/DL H<content styleCode="Italic s"> (0.2-1.3 MG/DL)</content> Alkaline <content [facility] phosphatase styleCode="Bold"> [facility] [Enzymatic Alkaline Medical activity/volume] Phosphatase (ALP) Cente r in Serum or Plasma </content>Test not performed. IU/L (Reference Range: not available)
Alanine <content [facility] aminotransferase styleCode="Bold"> [facility] [Enzymatic Alanine Medical activity/volume] Aminotransferase Center in Serum or Plasma (ALT) </content>Test not performed. IU/L (Reference Range: not available)
Albumin 3.5-5.0 Below low <content [facility] [Mass/volume] in normal styleCode="Bold"> [facility] Serum or Plasma Albumin Medical </content>3.3 Center G/DL L<content styleCode="Italic s"> (3.5-5.0 G/DL)</content> ID Date Data Source [facility].[id number] 05/07/2019 02:18:00 PM EST [facility] -0500 Name Value Range Interpretation Description Data Sup porting Code Source(s) Document(s ) UNK 2.3-3.5 <content [facility] styleCode="Bold Medical ">Globulin Center </content>2.9 G/DL<content styleCode="Ital ics"> (2.3-3.5 G/DL)</content> UNK >= 1.0 <content [facility] styleCode="Bold Medical ">AG Ratio Center </content>1.1 <content styleCode="Ital ics"> (>= 1.0 )</content> Protein 6.3-8.2 Below low normal <content [facility] [Mass/volum styleCode="Bold Medical e] in Serum ">Total Protein Center or Plasma </content>6.2 G/DL L<content styleCode="Ital ics"> (6.3-8.2 G/DL)</content> ID Date Data Source GFR(Creatinine).[id number] 05/07/2019 12:50:00 PM EST [facility] 0-0500 Name Value Range Interpretation Code Description Data Pebbles rce(s) Supporting Document(s ) UNK <content [facility] styleCode="Bold"> Medical Cent er EGFR </content>Test not performed. GFR (Reference Range: not available)
ID Date Data Source [facility].[id number] 05/07/2019 12:50:00 PM EST [facility] Name Value Range Interpretation Description Data Sup porting Code Source(s) Document(s ) Potassium <content [facility] [Moles/volume] styleCode="Bold [place] in Serum or ">Potassium Medical Plasma </content>Test Center not performed. MEQ/L (Reference Range: not available)
Sodium <content [facility] [Moles/volume] styleCode="Bold [place] in Serum or ">Sodium Medical Plasma </content>Test Center not performed. MEQ/L (Reference Range: not available)
Carbon <content [facility] dioxide, total styleCode="Bold [place] [Moles/volume] ">Carbon Medical in Serum or Dioxide Center Plasma </content>Test not performed. MEQ/L (Reference Range: not available)
Creatinine <content [facility] [Mass/volume] styleCode="Bold [place] in Serum or ">Creatinine Medical Plasma </content>Test Center not performed. MG/DL (Reference Range: not available)
UNK <content [facility] styleCode="Bold [facility] ">BUN Medical </content>Test Center not performed. MG/DL (Reference Range: not available)
Chloride <content [facility] [Moles/volume] styleCode="Bold [place] in Serum or ">Chloride Medical Plasma </content>Test Center not performed. MEQ/L (Reference Range: not available)
Glucose <content [facility] [Mass/volume] styleCode="Bold [place] in Serum or ">Glucose Medical Plasma </content>Test Center not performed. MG/DL (Reference Range: not available)
Calcium <content [facility] [Mass/volume] styleCode="Bold [place] in Serum or ">Calcium Medical Plasma </content>Test Center not performed. MG/DL (Reference Range: not available)
UNK <content [facility] styleCode="Bold [facility] ">EGFR Medical </content>Test Center not performed. GFR (Reference Range: not available)
ID Date Data Source Liver 05/07/2019 10:05:00 AM [facility] Profile.[id number] Name Value Range Interpretation Description Data Sup porting Code Source(s) Document(s ) Alanine <content [facility] aminotransferase styleCode="Bold"> [facility] [Enzymatic Alanine Medical activity/volume] Aminotransferase Center in Serum or Plasma (ALT) </content>Test not performed. IU/L (Reference Range: not available)
Aspartate <content [facility] aminotransferase styleCode="Bold"> [facility] [Enzymatic Aspartate Medical activity/volume] Aminotransferase Center in Serum or Plasma (AST) </content>Test not performed. IU/L (Reference Range: not available)
Alkaline <content [facility] phosphatase styleCode="Bold"> [facility] [Enzymatic Alkaline Medical activity/volume] Phosphatase (ALP) Cente r in Serum or Plasma </content>Test not performed. IU/L (Reference Range: not available)
Bilirubin.total <content [facility] [Mass/volume] in styleCode="Bold"> [facility] Serum or Plasma Bilirubin Total Medical </content>Test Center not performed. MG/DL (Reference Range: not available)
UNK <content [facility] styleCode="Bold"> [place] Bilirubin, Direct Medical </content>Test Center not performed. MG/DL (Reference Range: not available)
Albumin <content [facility] [Mass/volume] in styleCode="Bold"> [facility] Serum or Plasma Albumin Medical </content>Test Center not performed. G/DL (Reference Range: not available)
ID Date Data Source HematologyRou.[id number] 05/07/2019 10:05:00 AM EST [facility] 0500 Name Value Range Interpretation Description Data Sup porting Code Source(s) Document(s ) Erythrocytes 4.4-5.9 Below low normal <content Saint [#/volume] in styleCode="Bold [facility] Blood by ">Red Blood Medical Automated count Cell Count Center </content>3.78 MCUMM L<content styleCode="Ital ics"> (4.4-5.9 MCUMM)</content > Leukocytes 4.4-11.0 <content [facility] [#/volume] in styleCode="Bold [facility] Blood by ">White Blood Medical Automated count Cell Count Center </content>7.01 KCUMM<content styleCode="Ital ics"> (4.4-11.0 KCUMM)</content > Hematocrit 41.0-53. Below low normal <content [facility] [Volume 0 styleCode="Bold [facility] Fraction] of ">Hematocrit Medical Blood by </content>32.0 Center Automated count % L<content styleCode="Ital ics"> (41.0-53.0 %)</content> Hemoglobin 13.5-17. Below low normal <content [facility] [Mass/volume] in 5 styleCode="Bold [place] Blood ">Hemoglobin Medical </content>9.8 Center G/DL L<content styleCode="Ital ics"> (13.5-17.5 G/DL)</content> Erythrocyte mean 80.0-100 <content [facility] corpuscular .0 styleCode="Bold [facility] volume [Entitic ">Mean Medical volume] by Corpuscular Center Automated count Volume </content>84.7 FL<content styleCode="Ital ics"> (80.0-100.0 FL)</content> Erythrocyte mean 26.0-34. Below low normal <content [facility] corpuscular 0 styleCode="Bold [place] hemoglobin ">Mean Medical [Entitic mass] Corposcular Center by Automated Hemoglobin count </content>25.9 PG L<content styleCode="Ital ics"> (26.0-34.0 PG)</content> Erythrocyte 11.5-14. Above high <content [facility] distribution 5 normal styleCode="Bold [facility] width [Ratio] by ">Red Cell Medical Automated count Distribution Center Width </content>18.7 % H<content styleCode="Ital ics"> (11.5-14.5 %)</content> Erythrocyte mean 32.0-37. Below low normal <content [facility] corpuscular 0 styleCode="Bold [place] hemoglobin ">Mean Corpus. Medical concentration Hgb Center [Mass/volume] by Concentration Automated count (MCHC) </content>30.6 G/DL L<content styleCode="Ital ics"> (32.0-37.0 G/DL)</content> Platelet mean 8.0-11.0 <content Saint volume [Entitic styleCode="Bold [facility] volume] in Blood ">Mean Platelet Medical by Automated Volume Center count </content>10.5 FL<content styleCode="Ital ics"> (8.0-11.0 FL)</content> Platelets 130-400 <content Saint [#/volume] in styleCode="Bold [place] Blood by ">Platelet Medical Automated count Count Center </content>210 KCUMM<content styleCode="Ital ics"> (130-400 KCUMM)</content > UNK 0 <content Saint styleCode="Bold [place] ">Nucleated Red Medical Blood Cell Center </content>0.0 /100<content styleCode="Ital ics"> (0 /100)</content> UNK 0.0 <content Saint styleCode="Bold [facility] ">Nucleated Red Medical Blood Cell Center Count </content>0.00 KCUMM<content styleCode="Ital ics"> (0.0 KCUMM)</content > ID Date Data Source GFR(Creatinine).[id number] 05/07/2019 10:05:00 AM EST [facility] 0-0500 Name Value Range Interpretation Code Description Data Pebbles rce(s) Supporting Document(s ) UNK <content [facility] styleCode="Bold"> Medical Cent er EGFR </content>Test not performed. GFR (Reference Range: not available)
ID Date Data Source BMP.[id number] 05/07/2019 10:05:00 AM EST [facility] Name Value Range Interpretation Description Data Sup porting Code Source(s) Document(s ) Chloride <content Saint [Moles/volume] in styleCode="Bold"> [facility] Serum or Plasma Chloride Medical </content>Test Center not performed. MEQ/L (Reference Range: not available)
Potassium <content Saint [Moles/volume] in styleCode="Bold"> [facility] Serum or Plasma Potassium Medical </content>Test Center not performed. MEQ/L (Reference Range: not available)
Sodium <content [facility] [Moles/volume] in styleCode="Bold"> [facility] Serum or Plasma Sodium Medical </content>Test Center not performed. MEQ/L (Reference Range: not available)
Glucose <content [facility] [Mass/volume] in styleCode="Bold"> [facility] Serum or Plasma Glucose Medical </content>Test Center not performed. MG/DL (Reference Range: not available)
UNK <content [facility] styleCode="Bold"> [facility] BUN Medical </content>Test Center not performed. MG/DL (Reference Range: not available)
Carbon dioxide, <content Saint total styleCode="Bold"> [facility] [Moles/volume] in Carbon Dioxide Medical Serum or Plasma </content>Test Center not performed. MEQ/L (Reference Range: not available)
Creatinine <content [facility] [Mass/volume] in styleCode="Bold"> [facility] Serum or Plasma Creatinine Medical </content>Test Center not performed. MG/DL (Reference Range: not available)
UNK <content [facility] styleCode="Bold"> [place] EGFR Medical </content>Test Center not performed. GFR (Reference Range: not available)
Aspartate <content [facility] aminotransferase styleCode="Bold"> [facility] [Enzymatic Aspartate Medical activity/volume] Aminotransferase Center in Serum or Plasma (AST) </content>Test not performed. IU/L (Reference Range: not available)
Calcium <content [facility] [Mass/volume] in styleCode="Bold"> [facility] Serum or Plasma Calcium Medical </content>Test Center not performed. MG/DL (Reference Range: not available)
Alanine <content [facility] aminotransferase styleCode="Bold"> [facility] [Enzymatic Alanine Medical activity/volume] Aminotransferase Center in Serum or Plasma (ALT) </content>Test not performed. IU/L (Reference Range: not available)
Bilirubin.total <content [facility] [Mass/volume] in styleCode="Bold"> [facility] Serum or Plasma Bilirubin Total Medical </content>Test Center not performed. MG/DL (Reference Range: not available)
Alkaline <content [facility] phosphatase styleCode="Bold"> [facility] [Enzymatic Alkaline Medical activity/volume] Phosphatase (ALP) Cente r in Serum or Plasma </content>Test not performed. IU/L (Reference Range: not available)
Albumin <content [facility] [Mass/volume] in styleCode="Bold"> [facility] Serum or Plasma Albumin Medical </content>Test Center not performed. G/DL (Reference Range: not available)
ID Date Data Source Liver 02/19/2019 05:25:00 PM EDT [facility] Profile.[id number] Name Value Range Interpretation Description Data Sup porting Code Source(s) Document(s ) Aspartate 17-59 Above high <content [facility] aminotransferase normal styleCode="Bold"> [facility] [Enzymatic Aspartate Medical activity/volume] Aminotransferase Center in Serum or Plasma (AST) </content>72 IU/L H<content styleCode="Italic s"> (17-59 IU/L)</content> Albumin 3.5-5.0 <content [facility] [Mass/volume] in styleCode="Bold"> [facility] Serum or Plasma Albumin Medical </content>3.8 Center G/DL<content styleCode="Italic s"> (3.5-5.0 G/DL)</content> Alanine 7-50 <content [facility] aminotransferase styleCode="Bold"> [facility] [Enzymatic Alanine Medical activity/volume] Aminotransferase Center in Serum or Plasma (ALT) </content>22 IU/L<content styleCode="Italic s"> (7-50 IU/L)</content> Alkaline 38-126 <content [facility] phosphatase styleCode="Bold"> [facility] [Enzymatic Alkaline Medical activity/volume] Phosphatase (ALP) Cente r in Serum or Plasma </content>95 IU/L<content styleCode="Italic s"> (38-126 IU/L)</content> UNK 0.0-0.3 <content [facility] styleCode="Bold"> [place] Bilirubin, Direct Medical </content>< 0.2 Center MG/DL<content styleCode="Italic s"> (0.0-0.3 MG/DL)</content> Bilirubin.total 0.2-1.3 <content [facility] [Mass/volume] in styleCode="Bold"> [facility] Serum or Plasma Bilirubin Total Medical </content>0.9 Center MG/DL<content styleCode="Italic s"> (0.2-1.3 MG/DL)</content> ID Date Data Source HematologyRou.[id number] 02/19/2019 05:25:00 PM EDT [facility] 0400 Name Value Range Interpretation Description Data Sup porting Code Source(s) Document(s ) Leukocytes 4.4-11.0 <content [facility] [#/volume] in styleCode="Bold [place] Blood by ">White Blood Medical Automated count Cell Count Center </content>5.25 KCUMM<content styleCode="Ital ics"> (4.4-11.0 KCUMM)</content > Hematocrit 41.0-53. Below low normal <content [facility] [Volume 0 styleCode="Bold [place] Fraction] of ">Hematocrit Medical Blood by </content>35.0 Center Automated count % L<content styleCode="Ital ics"> (41.0-53.0 %)</content> Erythrocyte mean 80.0-100 <content [facility] corpuscular .0 styleCode="Bold [place] volume [Entitic ">Mean Medical volume] by Corpuscular Center Automated count Volume </content>85.6 FL<content styleCode="Ital ics"> (80.0-100.0 FL)</content> Erythrocyte mean 32.0-37. Below low normal <content [facility] corpuscular 0 styleCode="Bold [place] hemoglobin ">Mean Corpus. Medical concentration Hgb Center [Mass/volume] by Concentration Automated count (MCHC) </content>30.9 G/DL L<content styleCode="Ital ics"> (32.0-37.0 G/DL)</content> Erythrocyte mean 26.0-34. <content [facility] corpuscular 0 styleCode="Bold [place] hemoglobin ">Mean Medical [Entitic mass] Corposcular Center by Automated Hemoglobin count </content>26.4 PG<content styleCode="Ital ics"> (26.0-34.0 PG)</content> Erythrocytes 4.4-5.9 Below low normal <content [facility] [#/volume] in styleCode="Bold [place] Blood by ">Red Blood Medical Automated count Cell Count Center </content>4.09 MCUMM L<content styleCode="Ital ics"> (4.4-5.9 MCUMM)</content > Hemoglobin 13.5-17. Below low normal <content [facility] [Mass/volume] in 5 styleCode="Bold [place] Blood ">Hemoglobin Medical </content>10.8 Center G/DL L<content styleCode="Ital ics"> (13.5-17.5 G/DL)</content> UNK 0 <content Saint styleCode="Bold [place] ">Nucleated Red Medical Blood Cell Center </content>0.0 /100<content styleCode="Ital ics"> (0 /100)</content> Platelet mean 8.0-11.0 <content [facility] volume [Entitic styleCode="Bold [place] volume] in Blood ">Mean Platelet Medical by Automated Volume Center count </content>9.6 FL<content styleCode="Ital ics"> (8.0-11.0 FL)</content> UNK 0.0 <content [facility] styleCode="Bold [place] ">Nucleated Red Medical Blood Cell Center Count </content>0.00 KCUMM<content styleCode="Ital ics"> (0.0 KCUMM)</content > Erythrocyte 11.5-14. Above high <content [facility] distribution 5 normal styleCode="Bold [place] width [Ratio] by ">Red Cell Medical Automated count Distribution Center Width </content>19.9 % H<content styleCode="Ital ics"> (11.5-14.5 %)</content> Platelets 130-400 <content [facility] [#/volume] in styleCode="Bold [place] Blood by ">Platelet Medical Automated count Count Center </content>175 KCUMM<content styleCode="Ital ics"> (130-400 KCUMM)</content > ID Date Data Source GFR(Creatinine).[id number] 02/19/2019 05:25:00 PM EDT [facility] 0-0400 Name Value Range Interpretation Code Description Data Pebbles rce(s) Supporting Document(s ) UNK > 60 <content [facility] styleCode="Bold"> Medical Cent er EGFR </content>144 GFR<content styleCode="Italic s"> (> 60 GFR)</content> ID Date Data Source BMP.[id number] 02/19/2019 05:25:00 PM EDT [facility] Name Value Range Interpretation Description Data Sup porting Code Source(s) Document(s ) Sodium 137-145 <content [facility] [Moles/volume] in styleCode="Bold"> [facility] Serum or Plasma Sodium Medical </content>145 Center MEQ/L<content styleCode="Italic s"> (137-145 MEQ/L)</content> Potassium <content Saint [Moles/volume] in styleCode="Bold"> [facility] Serum or Plasma Potassium Medical </content>Test Center not performed. MEQ/L (Reference Range: not available)
UNK 9-20 <content Saint styleCode="Bold"> [facility] BUN </content>9 Medical MG/DL<content Center styleCode="Italic s"> (9-20 MG/DL)</content> Creatinine 0.5-1.3 <content [facility] [Mass/volume] in styleCode="Bold"> [facility] Serum or Plasma Creatinine Medical </content>0.6 Center MG/DL<content styleCode="Italic s"> (0.5-1.3 MG/DL)</content> Calcium 8.4-10. <content [facility] [Mass/volume] in 2 styleCode="Bold"> [facility] Serum or Plasma Calcium Medical </content>8.7 Center MG/DL<content styleCode="Italic s"> (8.4-10.2 MG/DL)</content> Glucose 74-106 <content [facility] [Mass/volume] in styleCode="Bold"> [facility] Serum or Plasma Glucose Medical </content>102 Center MG/DL<content styleCode="Italic s"> (74-106 MG/DL)</content> Chloride 98-107 <content [facility] [Moles/volume] in styleCode="Bold"> [facility] Serum or Plasma Chloride Medical </content>101 Center MEQ/L<content styleCode="Italic s"> (98-107 MEQ/L)</content> Carbon dioxide, 22-30 Above high <content [facility] total normal styleCode="Bold"> [place] [Moles/volume] in Carbon Dioxide Medical Serum or Plasma </content>31 Center MEQ/L H<content styleCode="Italic s"> (22-30 MEQ/L)</content> Aspartate 17-59 Above high <content [facility] aminotransferase normal styleCode="Bold"> [facility] [Enzymatic Aspartate Medical activity/volume] Aminotransferase Center in Serum or Plasma (AST) </content>72 IU/L H<content styleCode="Italic s"> (17-59 IU/L)</content> Alkaline 38-126 <content [facility] phosphatase styleCode="Bold"> [facility] [Enzymatic Alkaline Medical activity/volume] Phosphatase (ALP) Cente r in Serum or Plasma </content>95 IU/L<content styleCode="Italic s"> (38-126 IU/L)</content> UNK > 60 <content [facility] styleCode="Bold"> [place] EGFR Medical </content>144 Center GFR<content styleCode="Italic s"> (> 60 GFR)</content> Bilirubin.total 0.2-1.3 <content [facility] [Mass/volume] in styleCode="Bold"> [facility] Serum or Plasma Bilirubin Total Medical </content>0.9 Center MG/DL<content styleCode="Italic s"> (0.2-1.3 MG/DL)</content> Alanine 7-50 <content [facility] aminotransferase styleCode="Bold"> [facility] [Enzymatic Alanine Medical activity/volume] Aminotransferase Center in Serum or Plasma (ALT) </content>22 IU/L<content styleCode="Italic s"> (7-50 IU/L)</content> Albumin 3.5-5.0 <content [facility] [Mass/volume] in styleCode="Bold"> [facility] Serum or Plasma Albumin Medical </content>3.8 Center G/DL<content styleCode="Italic s"> (3.5-5.0 G/DL)</content> ID Date Data Source HematologyRou.[id number] 01/26/2019 09:36:00 PM EDT [facility] 0400 Name Value Range Interpretation Description Data Sup porting Code Source(s) Document(s ) Leukocytes 4.4-11.0 <content [facility] [#/volume] in styleCode="Bold [place] Blood by ">White Blood Medical Automated count Cell Count Center </content>6.81 KCUMM<content styleCode="Ital ics"> (4.4-11.0 KCUMM)</content > Erythrocytes 4.4-5.9 Below low normal <content [facility] [#/volume] in styleCode="Bold [place] Blood by ">Red Blood Medical Automated count Cell Count Center </content>3.58 MCUMM L<content styleCode="Ital ics"> (4.4-5.9 [facility])</content > Hemoglobin 13.5-17. Below low normal <content [facility] [Mass/volume] in 5 styleCode="Bold [place] Blood ">Hemoglobin Medical </content>9.6 Center G/DL L<content styleCode="Ital ics"> (13.5-17.5 G/DL)</content> Hematocrit 41.0-53. Below low normal <content [facility] [Volume 0 styleCode="[facility] [place] Fraction] of ">Hematocrit Medical Blood by </content>30.6 Center Automated count % L<content styleCode="Ital ics"> (41.0-53.0 %)</content> Erythrocyte mean 80.0-100 <content [facility] corpuscular .0 styleCode="[facility]old [place] volume [Entitic ">Mean Medical volume] by Corpuscular Center Automated count Volume </content>85.5 FL<content styleCode="Ital ics"> (80.0-100.0 FL)</content> Erythrocyte 11.5-14. Above high <content [facility] distribution 5 normal styleCode="[facility] [place] width [Ratio] by ">Red Cell Medical Automated count Distribution Center Width </content>19.0 % H<content styleCode="Ital ics"> (11.5-14.5 %)</content> Erythrocyte mean 32.0-37. Below low normal <content [facility] corpuscular 0 styleCode="[facility] [place] hemoglobin ">Mean Corpus. Medical concentration Hgb Center [Mass/volume] by Concentration Automated count (MCHC) </content>31.4 G/DL L<content styleCode="Ital ics"> (32.0-37.0 G/DL)</content> Erythrocyte mean 26.0-34. <content [facility] corpuscular 0 styleCode="[facility] [place] hemoglobin ">Mean Medical [Entitic mass] Corposcular Center by Automated Hemoglobin count </content>26.8 PG<content styleCode="Ital ics"> (26.0-34.0 PG)</content> UNK 0 <content [facility] styleCode="[facility] [place] ">Nucleated Red Medical Blood Cell Center </content>0.0 /100<content styleCode="Ital ics"> (0 /100)</content> Platelets 130-400 <content [facility] [#/volume] in styleCode="[facility] [place] Blood by ">Platelet Medical Automated count Count Center </content>367 KCUMM<content styleCode="Ital ics"> (130-400 [facility])</content > Platelet mean 8.0-11.0 <content [facility] volume [Entitic styleCode="Bold [place] volume] in Blood ">Mean Platelet Medical by Automated Volume Center count </content>9.6 FL<content styleCode="Ital ics"> (8.0-11.0 FL)</content> UNK 0.0 <content [facility] styleCode="[facility] [place] ">Nucleated Red Medical Blood Cell Center Count </content>0.00 KCUMM<content styleCode="Ital ics"> (0.0 [facility]M)</content > ID Date Data Source GFR(Creatinine).[id number] 01/26/2019 09:36:00 PM EDT [facility] 0-0400 Name Value Range Interpretation Code Description Data Pebbles rce(s) Supporting Document(s ) UNK > 60 <content [facility] styleCode="Bold"> Medical Cent er EGFR </content>90 GFR<content styleCode="Italic s"> (> 60 GFR)</content> ID Date Data Source [facility].[id number] 01/26/2019 09:36:00 PM EDT [facility] Name Value Range Interpretation Description Data Sup porting Code Source(s) Document(s ) Sodium 137-145 <content [facility] [Moles/volume] styleCode="[place] in Serum or d">Sodium Medical Plasma </content>145 Center MEQ/L<content styleCode="Zakia lics"> (137-145 MEQ/L)</conten t> Potassium 3.5-5.3 <content [facility] [Moles/volume] styleCode="[place] in Serum or d">Potassium Medical Plasma </content>3.9 Center MEQ/L<content styleCode="Zakia lics"> (3.5-5.3 MEQ/L)</conten t> UNK 9-20 <content [facility] styleCode="[facility] [place] d">BUN Medical </content>11 Center MG/DL<content styleCode="Zakia lics"> (9-20 MG/DL)</conten t> Chloride 98-107 Above high normal <content [facility] [Moles/volume] styleCode="[facility] [place] in Serum or d">Chloride Medical Plasma </content>108 Center MEQ/L H<content styleCode="Zakia lics"> (98-107 MEQ/L)</conten t> Carbon 22-30 <content [facility] dioxide, total styleCode="[facility] [place] [Moles/volume] d">Carbon Medical in Serum or Dioxide Center Plasma </content>24 MEQ/L<content styleCode="Zakia lics"> (22-30 MEQ/L)</conten t> Calcium 8.4-10.2 <content [facility] [Mass/volume] styleCode="[place] in Serum or d">Calcium Medical Plasma </content>9.2 Center MG/DL<content styleCode="Zakia lics"> (8.4-10.2 MG/DL)</conten t> Creatinine 0.5-1.3 <content [facility] [Mass/volume] styleCode="Mac [place] in Serum or d">Creatinine Medical Plasma </content>0.9 Center MG/DL<content styleCode="Zakia lics"> (0.5-1.3 MG/DL)</conten t> Glucose 74-106 <content [facility] [Mass/volume] styleCode="[facility] in Serum or d">Glucose Medical Plasma </content>106 Center MG/DL<content styleCode="Zakia lics"> (74-106 MG/DL)</conten t> UNK > 60 <content [facility] styleCode="[facility] d">EGFR Medical </content>90 Center GFR<content styleCode="Zakia lics"> (> 60 GFR)</content> ID Date Data Source Urinalysis.[id number] 01/25/2019 10:03:00 AM EDT [facility] 0 Name Value Range Interpretation Description Data Sup porting Code Source(s) Document(s ) Color of Urine YELLOW <content [facility] styleCode="[facility] d">Color, Medical Urine Center </content>YELL OW <content styleCode="Zakia lics"> (YELLOW )</content> UNK CLEAR <content [facility] styleCode="[facility] d">Urine Medical Clarity Center </content>COLIN R <content styleCode="Zakia lics"> (CLEAR )</content> Specific 1.015-1.02 Below low normal <content [facility] gravity of 5 styleCode="[facility] Urine by Test d">Urine Medical strip Specific Center [place] </content><= 1.005 L<content styleCode="Zakia lics"> (1.015-1.025 )</content> Hemoglobin NEGATIVE <content [facility] [Presence] in styleCode="[facility] Urine by Test d">Urine Blood Medical strip </content>NEGA Center TIVE <content styleCode="Zakia lics"> (NEGATIVE )</content> Glucose NEGATIVE <content [facility] [Mass/volume] styleCode="[facility] in Urine by d">Urine Medical Test strip Glucose Center </content>NEGA TIVE MG/DL<content styleCode="Zakia lics"> (NEGATIVE MG/DL)</conten t> UNK NEGATIVE <content [facility] styleCode="[facility] [place] d">Urine Medical Bilirubin Center </content>NEGA TIVE <content styleCode="Zakia lics"> (NEGATIVE )</content> Ketones NEGATIVE <content [facility] [Mass/volume] styleCode="[facility] in Urine by d">Urine Medical Test strip Ketone Center </content>NEGA TIVE MG/DL<content styleCode="Zakia lics"> (NEGATIVE MG/DL)</conten t> Urobilinogen 0.2-1.0 <content [facility] [Units/volume] styleCode="[facility] [place] in Urine by d">Urine Medical Test strip Urobilinogen Center </content>0.2 MG/DL<content styleCode="Zakia lics"> (0.2-1.0 MG/DL)</conten t> pH of Urine by 4.5-8.0 <content [facility] Test strip styleCode="[facility] d">Urine pH Medical </content>7.0 Center <content styleCode="Zakia lics"> (4.5-8.0 )</content> Nitrite NEGATIVE <content [facility] [Presence] in styleCode="[facility] Urine by Test d">Urine Medical strip Nitrite Center </content>POSI TIVE <content styleCode="Zakia lics"> (NEGATIVE )</content> Protein NEGATIVE <content [facility] [Mass/volume] styleCode="[facility] [place] in Urine by d">Urine Medical Test strip Protein Center </content>NEGA TIVE MG/DL<content styleCode="Zakia lics"> (NEGATIVE MG/DL)</conten t> Leukocyte NEGATIVE <content [facility] esterase styleCode="[facility] [Presence] in d">Urine Medical Urine by Test Leukocyte Center strip </content>SMAL L <content styleCode="Zakia lics"> (NEGATIVE )</content> UNK 0-3 <content styleCode="[facility] d">Urine White Medical Blood Cell Center </content>3-5 HPF<content styleCode="Zakia lics"> (0-3 HPF)</content> UNK NEGATIVE <content styleCode="[facility] d">Urine Medical Bacteria Center </content>FEW HPF<content styleCode="Zakia lics"> (NEGATIVE HPF)</content> ID Date Data Source Microbiology.[id number] 01/25/2019 10:03:00 AM EDT [facility] 400 Name Value Range Interpretation Code Description Data Pebbles rce(s) Supporting Document(s ) UNK <item><content [facility] styleCode="Bold"> Medical Cent er Culture Report </content>
<t able><tbody><tr>< td>Specimen Number:</td><td>[id number]</td></tr ><tr><td>Sample Collection Date/Time: </td><td> 9 10:03 AM</td></tr><tr>< td>Specimen Source:</td><td>U RINE</td></tr><tr ><td>Urine Culture:</td><td> Collection Plate Date: 01/25/2019 10:05 </td></tr><tr><td >Culture Status:</td><td>P reliminary </td></tr><tr><td >Culture Report:</td><td>C ulture in progress </td></tr></tbody ></table></item> UNK <item><content [facility] styleCode="Bold"> Medical Cent er Culture Status </content>
<t able><tbody><tr>< td>Specimen Number:</td><td>[id number]</td></tr ><tr><td>Sample Collection Date/Time: </td><td> 9 10:03 AM</td></tr><tr>< td>Specimen Source:</td><td>U RINE</td></tr><tr ><td>Culture Status:</td><td>P reliminary </td></tr><tr><td >Culture Report:</td><td>C ulture in progress </td></tr><tr><td >Urine Culture:</td><td> Collection Plate Date: 01/25/2019 10:05 </td></tr></tbody ></table></item> ID Date Data Source CHMROUTINECCDA.[id number] 01/25/2019 10:03:00 AM EDT [facility] -0400 Name Value Range Interpretation Description Data Sup porting Code Source(s) Document(s ) Cannabinoids <content [facility] [Presence] in styleCode="[facility] Urine by Screen d">Cannabinoid Medical method >50 ng/mL s Center </content>NEGA TIVE NG/ML (Reference Range: not available)<br/ > ID Date Data Source Urinalysis.[id number] 01/25/2019 03:00:00 AM EDT [facility] 0 Name Value Range Interpretation Description Data Sup porting Code Source(s) Document(s ) Color of Urine YELLOW <content [facility] styleCode="[facility] [place] d">Color, Medical Urine Center </content>YELL OW <content styleCode="Zakia lics"> (YELLOW )</content> Glucose NEGATIVE <content [facility] [Mass/volume] styleCode="[facility] in Urine by d">Urine Medical Test strip Glucose Center </content>NEGA TIVE MG/DL<content styleCode="Zakia lics"> (NEGATIVE MG/DL)</conten t> UNK NEGATIVE <content [facility] styleCode="[facility] [place] d">Urine Medical Bilirubin Center </content>NEGA TIVE <content styleCode="Zakia lics"> (NEGATIVE )</content> UNK CLEAR <content [facility] styleCode="[facility] [place] d">Urine Medical Clarity Center </content>COLIN R <content styleCode="Zakia lics"> (CLEAR )</content> Ketones NEGATIVE <content [facility] [Mass/volume] styleCode="[facility] [place] in Urine by d">Urine Medical Test strip Ketone Center </content>NEGA TIVE MG/DL<content styleCode="Zakia lics"> (NEGATIVE MG/DL)</conten t> Hemoglobin NEGATIVE <content [facility] [Presence] in styleCode="[facility] [place] Urine by Test d">Urine Blood Medical strip </content>NEGA Center TIVE <content styleCode="Zakia lics"> (NEGATIVE )</content> pH of Urine by 4.5-8.0 <content [facility] Test strip styleCode="[facility] [place] d">Urine pH Medical </content>7.5 Center <content styleCode="Zakia lics"> (4.5-8.0 )</content> Specific 1.015-1.02 Below low normal <content [facility] gravity of 5 styleCode="[facility] [place] Urine by Test d">Urine Medical strip Specific Center [place] </content><= 1.005 L<content styleCode="Zakia lics"> (1.015-1.025 )</content> Protein NEGATIVE <content [facility] [Mass/volume] styleCode="[facility] [place] in Urine by d">Urine Medical Test strip Protein Center </content>NEGA TIVE MG/DL<content styleCode="Zakia lics"> (NEGATIVE MG/DL)</conten t> Urobilinogen 0.2-1.0 <content [facility] [Units/volume] styleCode="[facility] [place] in Urine by d">Urine Medical Test strip Urobilinogen Center </content>0.2 MG/DL<content styleCode="Zakia lics"> (0.2-1.0 MG/DL)</conten t> Leukocyte NEGATIVE <content [facility] esterase styleCode="[facility] [place] [Presence] in d">Urine Medical Urine by Test Leukocyte Center strip </content>TRAC E <content styleCode="Zakia lics"> (NEGATIVE )</content> Nitrite NEGATIVE <content [facility] [Presence] in styleCode="[facility] Urine by Test d">Urine Medical strip Nitrite Center </content>NEGA TIVE <content styleCode="Zakia lics"> (NEGATIVE )</content> UNK 0-3 <content styleCode="[facility] d">Urine Red Medical Blood Cell Center </content>0-3 HPF<content styleCode="Zakia lics"> (0-3 HPF)</content> UNK 0-3 <content styleCode="[facility] d">Urine White Medical Blood Cell Center </content>3-5 HPF<content styleCode="Zakia lics"> (0-3 HPF)</content> UNK <content [facility] styleCode="[facility] d">Epithelial Medical Cell Center </content>0-2 LPF (Reference Range: not available)<br/ > ID Date Data Source Microbiology.[id number] 01/25/2019 03:00:00 AM EDT [facility] 400 Name Value Range Interpretation Code Description Data Pebbles rce(s) Supporting Document(s ) UNK <item><content [facility] styleCode="Bold"> Medical Cent er Culture Status </content>
<t able><tbody><tr>< td>Specimen Number:</td><td>[id number]</td></tr ><tr><td>Sample Collection Date/Time: </td><td> 9 3:00 AM</td></tr><tr>< td>Specimen Source:</td><td>U RINE</td></tr><tr ><td>Urine Culture:</td><td> Collection Plate Date: 01/25/2019 03:06 </td></tr><tr><td >Culture Status:</td><td>P reliminary </td></tr><tr><td >Culture Report:</td><td>C ulture in progress </td></tr></tbody ></table></item> UNK <item><content [facility] styleCode="Bold"> Medical Cent er Culture Report </content>
<t able><tbody><tr>< td>Specimen Number:</td><td>[id number]</td></tr ><tr><td>Sample Collection Date/Time: </td><td> 9 3:00 AM</td></tr><tr>< td>Specimen Source:</td><td>U RINE</td></tr><tr ><td>Culture Report:</td><td>C ulture in progress </td></tr><tr><td >Urine Culture:</td><td> Collection Plate Date: 01/25/2019 03:06 </td></tr><tr><td >Culture Status:</td><td>P reliminary </td></tr></tbody ></table></item> ID Date Data Source HematologyRou.[id number] 01/25/2019 03:00:00 AM EDT [facility] 0400 Name Value Range Interpretation Description Data Sup porting Code Source(s) Document(s ) Leukocytes 4.4-11.0 <content [facility] [#/volume] in styleCode="Bold [place] Blood by ">White Blood Medical Automated count Cell Count Center </content>8.23 KCUMM<content styleCode="Ital ics"> (4.4-11.0 KCUMM)</content > Hemoglobin 13.5-17. Below low normal <content [facility] [Mass/volume] in 5 styleCode="Bold [place] Blood ">Hemoglobin Medical </content>9.4 Center G/DL L<content styleCode="Ital ics"> (13.5-17.5 G/DL)</content> Hematocrit 41.0-53. Below low normal <content [facility] [Volume 0 styleCode="[place] Fraction] of ">Hematocrit Medical Blood by </content>30.1 Center Automated count % L<content styleCode="Ital ics"> (41.0-53.0 %)</content> Erythrocytes 4.4-5.9 Below low normal <content [facility] [#/volume] in styleCode="Bold [place] Blood by ">Red Blood Medical Automated count Cell Count Center </content>3.52 [facility] L<content styleCode="Ital ics"> (4.4-5.9 MCUMM)</content > Erythrocyte mean 80.0-100 <content [facility] corpuscular .0 styleCode="Bold [place] volume [Entitic ">Mean Medical volume] by Corpuscular Center Automated count Volume </content>85.5 FL<content styleCode="Ital ics"> (80.0-100.0 FL)</content> Erythrocyte mean 26.0-34. <content [facility] corpuscular 0 styleCode="Bold [place] hemoglobin ">Mean Medical [Entitic mass] Corposcular Center by Automated Hemoglobin count </content>26.7 PG<content styleCode="Ital ics"> (26.0-34.0 PG)</content> Erythrocyte mean 32.0-37. Below low normal <content [facility] corpuscular 0 styleCode="B[place] hemoglobin ">Mean Corpus. Medical concentration Hgb Center [Mass/volume] by Concentration Automated count (MCHC) </content>31.2 G/DL L<content styleCode="Ital ics"> (32.0-37.0 G/DL)</content> Erythrocyte 11.5-14. Above high <content [facility] distribution 5 normal styleCode="Bold [place] width [Ratio] by ">Red Cell Medical Automated count Distribution Center Width </content>19.6 % H<content styleCode="Ital ics"> (11.5-14.5 %)</content> UNK 1.6-7.3 <content [facility] styleCode="[facility] [place] ">Neutrophil Medical Count Center </content>5.32 KCUMM<content styleCode="Ital ics"> (1.6-7.3 KCUMM)</content > Platelets 130-400 <content [facility] [#/volume] in styleCode="Bold [place] Blood by ">Platelet Medical Automated count Count Center </content>362 KCUMM<content styleCode="Ital ics"> (130-400 KCUMM)</content > Platelet mean 8.0-11.0 <content [facility] volume [Entitic styleCode="Bold [place] volume] in Blood ">Mean Platelet Medical by Automated Volume Center count </content>9.5 FL<content styleCode="Ital ics"> (8.0-11.0 FL)</content> Lymphocytes 24.0-44. <content [facility] [#/volume] in 0 styleCode="Bold [place] Blood by ">Lymphocyte Medical Automated count </content>24.7 Center %<content styleCode="Ital ics"> (24.0-44.0 %)</content> Neutrophils 36-66 <content [facility] [#/volume] in styleCode="B[place] Blood by ">Neutrophil Medical Automated count </content>64.6 Center %<content styleCode="Ital ics"> (36-66 %)</content> UNK 0.2-0.9 <content [facility] styleCode="[facility] [place] ">Monocyte Medical Count Center </content>0.55 KCUMM<content styleCode="Ital ics"> (0.2-0.9 KCUMM)</content > UNK 1.0-4.8 <content [facility] styleCode="Bold [place] ">Lymphocyte Medical Count Center </content>2.03 KCUMM<content styleCode="Ital ics"> (1.0-4.8 KCUMM)</content > Monocytes 3.0-10.0 <content [facility] [#/volume] in styleCode="Bold [place] Blood by ">Monocyte Medical Automated count </content>6.7 Center %<content styleCode="Ital ics"> (3.0-10.0 %)</content> UNK 0.0-0.6 <content [facility] styleCode="Bold [place] ">Eosinophil Medical Count Center </content>0.25 KCUMM<content styleCode="Ital ics"> (0.0-0.6 KCUMM)</content > Eosinophils 0-5.0 <content [facility] [#/volume] in styleCode="Bold [place] Blood by ">Eosinophil Medical Automated count </content>3.0 Center %<content styleCode="Ital ics"> (0-5.0 %)</content> Basophils 0.0-1.0 <content [facility] [#/volume] in styleCode="B[place] Blood by ">Basophil Medical Automated count </content>0.5 Center %<content styleCode="Ital ics"> (0.0-1.0 %)</content> UNK 0-0.1 <content [facility] styleCode="Bold [place] ">Immature Medical Granulocyte Center Count </content>0.04 KCUMM<content styleCode="Ital ics"> (0-0.1 KCUMM)</content > UNK 0.0-0.3 <content [facility] styleCode="Bold [place] ">Basophil Medical Count Center </content>0.04 KCUMM<content styleCode="Ital ics"> (0.0-0.3 KCUMM)</content > UNK 0.0 <content [facility] styleCode="Bold [place] ">Nucleated Red Medical Blood Cell Center Count </content>0.00 KCUMM<content styleCode="Ital ics"> (0.0 KCUMM)</content > UNK 0 <content [facility] styleCode="Bold [place] ">Nucleated Red Medical Blood Cell Center </content>0.0 /100<content styleCode="Ital ics"> (0 /100)</content> UNK < 1 <content [facility] styleCode="[facility] [place] ">Immature Medical Granulocyte Center Ratio </content>0.5 %<content styleCode="Ital ics"> (< 1 %)</content> ID Date Data Source GFR(Creatinine).[id number] 01/25/2019 03:00:00 AM EDT [facility] 0-0400 Name Value Range Interpretation Code Description Data Pebbles rce(s) Supporting Document(s ) UNK > 60 <content [facility] styleCode="Bold"> Medical Cent er EGFR </content>72 GFR<content styleCode="Italic s"> (> 60 GFR)</content> ID Date Data Source Coagulation 01/25/2019 03:00:00 AM [facility] ical Center Rout.[id number] EDT Name Value Range Interpretation Description Data Sup porting Code Source(s) Document(s ) INR in 0.80-1.2 <content [facility] Platelet poor 0 styleCode="Bold" [facility] plasma by >INR Medical Coagulation </content>1.08 Center assay #<content styleCode="Itali cs"> (0.80-1.20 #)</content> UNK 9.0-13.0 <content [facility] styleCode="Bold" [place] >Protime Medical </content>12.0 Center SEC<content styleCode="Itali cs"> (9.0-13.0 SEC)</content> aPTT in 25.1-36. <content [facility] Platelet poor 5 styleCode="Bold" [facility] plasma by >Partial Medical Coagulation Thromboplastin Center assay Time </content>29.4 SEC<content styleCode="Itali cs"> (25.1-36.5 SEC)</content> ID Date Data Source CHMROUTINECCDA.[id number] 01/25/2019 03:00:00 AM EDT [facility] -0400 Name Value Range Interpretation Description Data Sup porting Code Source(s) Document(s ) Phosphate 2.5-4.5 <content [facility] [Mass/volume] styleCode="[facility] [place] in Serum or d">Phosphorus Medical Plasma </content>4.0 Center MG/DL<content styleCode="Zakia lics"> (2.5-4.5 MG/DL)</conten t> Magnesium 1.6-2.3 Below low normal <content [facility] [Mass/volume] styleCode="[facility] [place] in Serum or d">Magnesium Medical Plasma </content>1.5 Center MG/DL L<content styleCode="Zakia lics"> (1.6-2.3 MG/DL)</conten t> Cannabinoids <content [facility] [Presence] in styleCode="[facility] Urine by Screen d">Cannabinoid Medical method >50 s Center ng/mL </content>NEGA TIVE NG/ML (Reference Range: not available)<br/ > ID Date Data Source [facility].[id number] 01/25/2019 03:00:00 AM EDT [facility] Name Value Range Interpretation Description Data Sup porting Code Source(s) Document(s ) Sodium 137-145 <content [facility] [Moles/volume] styleCode="Mac [place] in Serum or d">Sodium Medical Plasma </content>140 Center MEQ/L<content styleCode="Zakia lics"> (137-145 MEQ/L)</conten t> Chloride 98-107 Above high normal <content [facility] [Moles/volume] styleCode="[facility] [place] in Serum or d">Chloride Medical Plasma </content>108 Center MEQ/L H<content styleCode="Zakia lics"> (98-107 MEQ/L)</conten t> Potassium 3.5-5.3 Below low normal <content [facility] [Moles/volume] styleCode="[facility] [place] in Serum or d">Potassium Medical Plasma </content>3.1 Center MEQ/L L<content styleCode="Zakia lics"> (3.5-5.3 MEQ/L)</conten t> Carbon 22-30 <content [facility] dioxide, total styleCode="[facility] [Moles/volume] d">Carbon Medical in Serum or Dioxide Center Plasma </content>22 MEQ/L<content styleCode="Zakia lics"> (22-30 MEQ/L)</conten t> Calcium 8.4-10.2 <content [facility] [Mass/volume] styleCode="[facility] [place] in Serum or d">Calcium Medical Plasma </content>8.5 Center MG/DL<content styleCode="Zakia lics"> (8.4-10.2 MG/DL)</conten t> UNK > 60 <content [facility] styleCode="[facility] [place] d">EGFR Medical </content>72 Center GFR<content styleCode="Zakia lics"> (> 60 GFR)</content> Creatinine 0.5-1.3 <content [facility] [Mass/volume] styleCode="[facility] in Serum or d">Creatinine Medical Plasma </content>1.1 Center MG/DL<content styleCode="Zakia lics"> (0.5-1.3 MG/DL)</conten t> Glucose 74-106 <content [facility] [Mass/volume] styleCode="[facility] [place] in Serum or d">Glucose Medical Plasma </content>94 Center MG/DL<content styleCode="Zakia lics"> (74-106 MG/DL)</conten t> UNK 9-20 Below low normal <content [facility] styleCode="[facility] [place] d">BUN Medical </content>8 Center MG/DL L<content styleCode="Zakia lics"> (9-20 MG/DL)</conten t> ID Date Data [id number] 01/25/2019 02:24:00 AM EDT [facility] -0400 Name Value Range Interpretation Code Description Data Pebbles rce(s) Supporting Document(s ) UNK 0.7-2.0 <content [facility] styleCode="Bold" Medical Cente r >Lactic Acid 4hr </content>2.0 MMOLL<content styleCode="Itali cs"> (0.7-2.0 MMOLL)</content> ID Date Data Source GFR(Creatinine).[id number] 01/24/2019 09:20:00 PM EDT [facility] 0-0400 Name Value Range Interpretation Code Description Data Pebbles rce(s) Supporting Document(s ) UNK > 60 Below low normal <content [facility] styleCode="Bold"> Medical Cent er EGFR </content>50 GFR L<content styleCode="Italic s"> (> 60 GFR)</content> ID Date Data Source MROUTINECCDA.[id number] 01/24/2019 09:20:00 PM EDT [facility] -0400 Name Value Range Interpretation Description Data Sup porting Code Source(s) Document(s ) Magnesium 1.6-2.3 Below low normal <content [facility] [Mass/volume] styleCode="[facility] in Serum or d">Magnesium Medical Plasma </content>1.5 Center MG/DL L<content styleCode="Zakia lics"> (1.6-2.3 MG/DL)</conten t> ID Date Data Source [facility].[id number] 01/24/2019 09:20:00 PM EDT [facility] Name Value Range Interpretation Description Data Sup porting Code Source(s) Document(s ) Sodium 137-145 <content [facility] [Moles/volume] styleCode="Mac [facility] in Serum or d">Sodium Medical Plasma </content>142 Center MEQ/L<content styleCode="Zakia lics"> (137-145 MEQ/L)</conten t> Potassium 3.5-5.3 <content [facility] [Moles/volume] styleCode="[facility] [place] in Serum or d">Potassium Medical Plasma </content>3.8 Center MEQ/L<content styleCode="Zakia lics"> (3.5-5.3 MEQ/L)</conten t> Potassium 3.5-5.3 <content [facility] [Moles/volume] styleCode="[facility] [place] in Serum or d">Potassium Medical Plasma </content>3.8 Center MEQ/L<content styleCode="Zakia lics"> (3.5-5.3 MEQ/L)</conten t> UNK 9-20 <content [facility] styleCode="[facility] [place] d">BUN Medical </content>9 Center MG/DL<content styleCode="Zakia lics"> (9-20 MG/DL)</conten t> Glucose 74-106 <content [facility] [Mass/volume] styleCode="[facility] [place] in Serum or d">Glucose Medical Plasma </content>78 Center MG/DL<content styleCode="Zakia lics"> (74-106 MG/DL)</conten t> Chloride 98-107 <content [facility] [Moles/volume] styleCode="[facility] [place] in Serum or d">Chloride Medical Plasma </content>106 Center MEQ/L<content styleCode="Zakia lics"> (98-107 MEQ/L)</conten t> Carbon 22-30 Below low normal <content [facility] dioxide, total styleCode="[facility] [place] [Moles/volume] d">Carbon Medical in Serum or Dioxide Center Plasma </content>20 MEQ/L L<content styleCode="Zakia lics"> (22-30 MEQ/L)</conten t> Creatinine 0.5-1.3 Above high normal <content [facility] [Mass/volume] styleCode="Mac [place] in Serum or d">Creatinine Medical Plasma </content>1.5 Center MG/DL H<content styleCode="Zakia lics"> (0.5-1.3 MG/DL)</conten t> UNK > 60 Below low normal <content [facility] styleCode="Mac Jacomes d">EGFR Medical </content>50 Center GFR L<content styleCode="Zakia lics"> (> 60 GFR)</content> Calcium 8.4-10.2 <content [facility] [Mass/volume] styleCode="Mac [place] in Serum or d">Calcium Medical Plasma </content>8.7 Center MG/DL<content styleCode="Zakia lics"> (8.4-10.2 MG/DL)</conten t> ID Date Data Source Microbiology.[id number] 01/24/2019 08:15:00 PM EDT [facility] 400 Name Value Range Interpretation Code Description Data Pebbles rce(s) Supporting Document(s ) UNK <item><content [facility] styleCode="Bold"> Medical Cent er Culture Status </content>
<t able><tbody><tr>< td>Specimen Number:</td><td>[id number]</td></tr ><tr><td>Sample Collection Date/Time: </td><td> 9 8:15 PM</td></tr><tr>< td>Specimen Source:</td><td>B LOOD</td></tr><tr ><td>Culture Report:</td><td>C ulture in progress </td></tr><tr><td >Culture Status:</td><td>P reliminary </td></tr><tr><td >Blood Culture:</td><td> Collection Plate Date: 01/24/2019 20:30 </td></tr></tbody ></table></item> UNK <item><content [facility] styleCode="Bold"> Medical [facility] er Culture Report </content>
<t able><tbody><tr>< td>Specimen Number:</td><td>[id number]</td></tr ><tr><td>Sample Collection Date/Time: </td><td> 9 8:15 PM</td></tr><tr>< td>Specimen Source:</td><td>B LOOD</td></tr><tr ><td>Blood Culture:</td><td> Collection Plate Date: 01/24/2019 20:30 </td></tr><tr><td >Culture Status:</td><td>P reliminary </td></tr><tr><td >Culture Report:</td><td>C ulture in progress </td></tr></tbody ></table></item> ID Date Data Source Liver 01/24/2019 08:15:00 PM EDT [facility] Profile.[id number] Name Value Range Interpretation Description Data Sup porting Code Source(s) Document(s ) Alanine 7-50 <content [facility] aminotransferase styleCode="Bold"> [facility] [Enzymatic Alanine Medical activity/volume] Aminotransferase Center in Serum or Plasma (ALT) </content>23 IU/L<content styleCode="Italic s"> (7-50 IU/L)</content> Aspartate 17-59 Above high <content [facility] aminotransferase normal styleCode="Bold"> [facility] [Enzymatic Aspartate Medical activity/volume] Aminotransferase Center in Serum or Plasma (AST) </content>61 IU/L H<content styleCode="Italic s"> (17-59 IU/L)</content> Alkaline 38-126 <content [facility] phosphatase styleCode="Bold"> [facility] [Enzymatic Alkaline Medical activity/volume] Phosphatase (ALP) Cente r in Serum or Plasma </content>61 IU/L<content styleCode="Italic s"> (38-126 IU/L)</content> Albumin 3.5-5.0 Below low <content [facility] [Mass/volume] in normal styleCode="Bold"> [facility] hs Serum or Plasma Albumin Medical </content>3.2 Center G/DL L<content styleCode="Italic s"> (3.5-5.0 G/DL)</content> UNK 0.0-0.3 <content [facility] styleCode="Bold"> [place] Bilirubin, Direct Medical </content>< 0.2 Center MG/DL<content styleCode="Italic s"> (0.0-0.3 MG/DL)</content> Bilirubin.total 0.2-1.3 <content [facility] [Mass/volume] in styleCode="Bold"> Stephan hs Serum or Plasma Bilirubin Total Medical </content>0.5 Center MG/DL<content styleCode="Italic s"> (0.2-1.3 MG/DL)</content> ID Date Data Source HematologyRou.[id number] 01/24/2019 08:15:00 PM EDT [facility] 0400 Name Value Range Interpretation Description Data Sup porting Code Source(s) Document(s ) Leukocytes 4.4-11.0 <content [facility] [#/volume] in styleCode="Bold [place] Blood by ">White Blood Medical Automated count Cell Count Center </content>10.32 KCUMM<content styleCode="Ital ics"> (4.4-11.0 KCUMM)</content > Hemoglobin 13.5-17. Below low normal <content [facility] [Mass/volume] in 5 styleCode="Bold [place] Blood ">Hemoglobin Medical </content>9.8 Center G/DL L<content styleCode="Ital ics"> (13.5-17.5 G/DL)</content> Erythrocyte mean 26.0-34. <content [facility] corpuscular 0 styleCode="Bold [place] hemoglobin ">Mean Medical [Entitic mass] Corposcular Center by Automated Hemoglobin count </content>26.8 PG<content styleCode="Ital ics"> (26.0-34.0 PG)</content> Erythrocytes 4.4-5.9 Below low normal <content [facility] [#/volume] in styleCode="Bold [place] Blood by ">Red Blood Medical Automated count Cell Count Center </content>3.65 MCUMM L<content styleCode="Ital ics"> (4.4-5.9 MCUMM)</content > Hematocrit 41.0-53. Below low normal <content [facility] [Volume 0 styleCode="Bold [place] Fraction] of ">Hematocrit Medical Blood by </content>31.2 Center Automated count % L<content styleCode="Ital ics"> (41.0-53.0 %)</content> Erythrocyte mean 80.0-100 <content [facility] corpuscular .0 styleCode="Bold [place] volume [Entitic ">Mean Medical volume] by Corpuscular Center Automated count Volume </content>85.5 FL<content styleCode="Ital ics"> (80.0-100.0 FL)</content> Platelet mean 8.0-11.0 <content [facility] volume [Entitic styleCode="Bold [place] volume] in Blood ">Mean Platelet Medical by Automated Volume Center count </content>9.7 FL<content styleCode="Ital ics"> (8.0-11.0 FL)</content> Platelets 130-400 Above high <content [facility] [#/volume] in normal styleCode="Bold [place] Blood by ">Platelet Medical Automated count Count Center </content>440 KCUMM H<content styleCode="Ital ics"> (130-400 KCUMM)</content > Erythrocyte mean 32.0-37. Below low normal <content [facility] corpuscular 0 styleCode="Bold [place] hemoglobin ">Mean Corpus. Medical concentration Hgb Center [Mass/volume] by Concentration Automated count (MCHC) </content>31.4 G/DL L<content styleCode="Ital ics"> (32.0-37.0 G/DL)</content> Erythrocyte 11.5-14. Above high <content [facility] distribution 5 normal styleCode="Bold [place] width [Ratio] by ">Red Cell Medical Automated count Distribution Center Width </content>19.7 % H<content styleCode="Ital ics"> (11.5-14.5 %)</content> UNK 1.0-4.8 <content [facility] styleCode="Bold [facility] ">Lymphocyte Medical Count Center </content>2.18 KCUMM<content styleCode="Ital ics"> (1.0-4.8 KCUMM)</content > Lymphocytes 24.0-44. Below low normal <content [facility] [#/volume] in 0 styleCode="Bold [place] Blood by ">Lymphocyte Medical Automated count </content>21.1 Center % L<content styleCode="Ital ics"> (24.0-44.0 %)</content> UNK 1.6-7.3 <content [facility] styleCode="Bold [place] ">Neutrophil Medical Count Center </content>7.14 KCUMM<content styleCode="Ital ics"> (1.6-7.3 KCUMM)</content > Neutrophils 36-66 Above high <content [facility] [#/volume] in normal styleCode="Bold [place] Blood by ">Neutrophil Medical Automated count </content>69.2 Center % H<content styleCode="Ital ics"> (36-66 %)</content> Eosinophils 0-5.0 <content [facility] [#/volume] in styleCode="Bold [place] Blood by ">Eosinophil Medical Automated count </content>1.9 Center %<content styleCode="Ital ics"> (0-5.0 %)</content> Monocytes 3.0-10.0 <content [facility] [#/volume] in styleCode="Bold [place] Blood by ">Monocyte Medical Automated count </content>6.8 Center %<content styleCode="Ital ics"> (3.0-10.0 %)</content> UNK 0.0-0.6 <content [facility] styleCode="Bold [place] ">Eosinophil Medical Count Center </content>0.20 KCUMM<content styleCode="Ital ics"> (0.0-0.6 KCUMM)</content > UNK 0.2-0.9 <content [facility] styleCode="Bold [place] ">Monocyte Medical Count Center </content>0.70 KCUMM<content styleCode="Ital ics"> (0.2-0.9 KCUMM)</content > Basophils 0.0-1.0 <content [facility] [#/volume] in styleCode="Bold [place] Blood by ">Basophil Medical Automated count </content>0.5 Center %<content styleCode="Ital ics"> (0.0-1.0 %)</content> UNK 0-0.1 <content [facility] styleCode="Bold [place] ">Immature Medical Granulocyte Center Count </content>0.05 KCUMM<content styleCode="Ital ics"> (0-0.1 KCUMM)</content > UNK 0 <content [facility] styleCode="Bold [place] ">Nucleated Red Medical Blood Cell Center </content>0.0 /100<content styleCode="Ital ics"> (0 /100)</content> UNK 0.0 <content [facility] styleCode="Bold [place] ">Nucleated Red Medical Blood Cell Center Count </content>0.00 KCUMM<content styleCode="Ital ics"> (0.0 KCUMM)</content > UNK < 1 <content [facility] styleCode="Bold [place] ">Immature Medical Granulocyte Center Ratio </content>0.5 %<content styleCode="Ital ics"> (< 1 %)</content> UNK 0.0-0.3 <content [facility] styleCode="Bold [place] ">Basophil Medical Count Center </content>0.05 KCUMM<content styleCode="Ital ics"> (0.0-0.3 KCUMM)</content > ID Date Data Source GFR(Creatinine).[id number] 01/24/2019 08:15:00 PM EDT [facility] 0-0400 Name Value Range Interpretation Code Description Data Pebbles rce(s) Supporting Document(s ) UNK > 60 Below low normal <content [facility] styleCode="Bold"> Medical Cent er EGFR </content>46 GFR L<content styleCode="Italic s"> (> 60 GFR)</content> ID Date Data Source Coagulation 01/24/2019 08:15:00 PM [facility] ical Center Rout.[id number] EDT Name Value Range Interpretation Description Data Sup porting Code Source(s) Document(s ) UNK 9.0-13.0 <content [facility] styleCode="Mac [facility] d">Protime Medical </content>12.7 Center SEC<content styleCode="Zakia lics"> (9.0-13.0 SEC)</content> INR in 0.80-1.2 <content [facility] Platelet poor 0 styleCode="[facility] plasma by d">INR Medical Coagulation </content>1.14 Center assay #<content styleCode="Zakia lics"> (0.80-1.20 #)</content> ID Date Data Source CHMROUTINECCDA.[id number] 01/24/2019 08:15:00 PM EDT [facility] -0400 Name Value Range Interpretation Description Data Sup porting Code Source(s) Document(s ) UNK 30-110 <content [place] styleCode="Bold Medical ">Amylase Center </content>38 IU/L<content styleCode="Ital ics"> (30-110 IU/L)</content> Lipase 23-300 <content [facility] [Enzymatic styleCode="Bold Medical activity/vo ">Lipase Center lume] in </content>37 Serum or IU/L<content Plasma styleCode="Ital ics"> (23-300 IU/L)</content> Lactate 0.7-2.0 Above upper panic <content [place] [facility] [Mass/volum limits styleCode="Bold Medical e] in Serum ">Lactic Acid Center or Plasma </content><cont ent styleCode="Bold ">3.7 MMOLL HH</content><co ntent styleCode="Ital ics"> (0.7-2.0 MMOLL)</content > ID Date Data Source [facility].[id number] 01/24/2019 08:15:00 PM EDT [facility] Name Value Range Interpretation Description Data Sup porting Code Source(s) Document(s ) Carbon dioxide, 22-30 Below low <content [facility] total normal styleCode="Bold"> [facility] [Moles/volume] in Carbon Dioxide Medical Serum or Plasma </content>19 Center MEQ/L L<content styleCode="Italic s"> (22-30 MEQ/L)</content> Potassium <content [facility] [Moles/volume] in styleCode="Bold"> [facility] ph[facility] Serum or Plasma Potassium Medical </content>Test Center not performed. MEQ/L (Reference Range: not available)
Sodium 137-145 <content [facility] [Moles/volume] in styleCode="Bold"> [place] ph[facility] Serum or Plasma Sodium Medical </content>140 Center MEQ/L<content styleCode="Italic s"> (137-145 MEQ/L)</content> Chloride 98-107 <content [facility] [Moles/volume] in styleCode="Bold"> [place] ph[facility] Serum or Plasma Chloride Medical </content>105 Center MEQ/L<content styleCode="Italic s"> (98-107 MEQ/L)</content> Calcium 8.4-10. <content [facility] [Mass/volume] in 2 styleCode="Bold"> [facility] hs Serum or Plasma Calcium Medical </content>9.1 Center MG/DL<content styleCode="Italic s"> (8.4-10.2 MG/DL)</content> Creatinine 0.5-1.3 Above high <content [facility] [Mass/volume] in normal styleCode="Bold"> [facility] hs Serum or Plasma Creatinine Medical </content>1.6 Center MG/DL H<content styleCode="Italic s"> (0.5-1.3 MG/DL)</content> Glucose 74-106 <content [facility] [Mass/volume] in styleCode="Bold"> [facility] hs Serum or Plasma Glucose Medical </content>87 Center MG/DL<content styleCode="Italic s"> (74-106 MG/DL)</content> UNK 9-20 <content [facility] styleCode="Bold"> [facility] BUN </content>9 Medical MG/DL<content Center styleCode="Italic s"> (9-20 MG/DL)</content> UNK > 60 Below low <content [facility] normal styleCode="Bold"> [facility] EGFR </content>46 Medical GFR L<content Center styleCode="Italic s"> (> 60 GFR)</content> Alkaline 38-126 <content [facility] phosphatase styleCode="Bold"> [facility] [Enzymatic Alkaline Medical activity/volume] Phosphatase (ALP) Cente r in Serum or Plasma </content>61 IU/L<content styleCode="Italic s"> (38-126 IU/L)</content> Alanine 7-50 <content [facility] aminotransferase styleCode="Bold"> [facility] hs [Enzymatic Alanine Medical activity/volume] Aminotransferase Center in Serum or Plasma (ALT) </content>23 IU/L<content styleCode="Italic s"> (7-50 IU/L)</content> Aspartate 17-59 Above high <content [facility] aminotransferase normal styleCode="Bold"> [facility] hs [Enzymatic Aspartate Medical activity/volume] Aminotransferase Center in Serum or Plasma (AST) </content>61 IU/L H<content styleCode="Italic s"> (17-59 IU/L)</content> Albumin 3.5-5.0 Below low <content [facility] [Mass/volume] in normal styleCode="Bold"> Stephan hs Serum or Plasma Albumin Medical </content>3.2 Center G/DL L<content styleCode="Italic s"> (3.5-5.0 G/DL)</content> Bilirubin.total 0.2-1.3 <content [facility] [Mass/volume] in styleCode="Bold"> Stephan hs Serum or Plasma Bilirubin Total Medical </content>0.5 Center MG/DL<content styleCode="Italic s"> (0.2-1.3 MG/DL)</content> ID Date Data Source Liver 01/20/2019 06:45:00 AM EDT [facility] Profile.[id number] Name Value Range Interpretation Description Data Sup porting Code Source(s) Document(s ) Alanine 7-50 <content [facility] aminotransferase styleCode="Bold"> [facility] hs [Enzymatic Alanine Medical activity/volume] Aminotransferase Center in Serum or Plasma (ALT) </content>22 IU/L<content styleCode="Italic s"> (7-50 IU/L)</content> Aspartate 17-59 <content [facility] aminotransferase styleCode="Bold"> [facility] hs [Enzymatic Aspartate Medical activity/volume] Aminotransferase Center in Serum or Plasma (AST) </content>32 IU/L<content styleCode="Italic s"> (17-59 IU/L)</content> Alkaline 38-126 <content [facility] phosphatase styleCode="Bold"> [facility] [Enzymatic Alkaline Medical activity/volume] Phosphatase (ALP) Cente r in Serum or Plasma </content>103 IU/L<content styleCode="Italic s"> (38-126 IU/L)</content> Albumin 3.5-5.0 Below low <content [facility] [Mass/volume] in normal styleCode="Bold"> Stephan hs Serum or Plasma Albumin Medical </content>3.0 Center G/DL L<content styleCode="Italic s"> (3.5-5.0 G/DL)</content> Bilirubin.total 0.2-1.3 <content [facility] [Mass/volume] in styleCode="Bold"> Stephan hs Serum or Plasma Bilirubin Total Medical </content>0.8 Center MG/DL<content styleCode="Italic s"> (0.2-1.3 MG/DL)</content> ID Date Data Source HematologyRou.[id number] 01/20/2019 06:45:00 AM EDT [facility] 0400 Name Value Range Interpretation Description Data Sup porting Code Source(s) Document(s ) Leukocytes 4.4-11.0 <content [facility] [#/volume] in styleCode="Bold [place] Blood by ">White Blood Medical Automated count Cell Count Center </content>7.44 KCUMM<content styleCode="Ital ics"> (4.4-11.0 KCUMM)</content > Hemoglobin 13.5-17. Below low normal <content [facility] [Mass/volume] in 5 styleCode="Bold [place] Blood ">Hemoglobin Medical </content>10.4 Center G/DL L<content styleCode="Ital ics"> (13.5-17.5 G/DL)</content> Hematocrit 41.0-53. Below low normal <content [facility] [Volume 0 styleCode="Bold [place] Fraction] of ">Hematocrit Medical Blood by </content>33.0 Center Automated count % L<content styleCode="Ital ics"> (41.0-53.0 %)</content> Erythrocytes 4.4-5.9 Below low normal <content [facility] [#/volume] in styleCode="Bold [place] Blood by ">Red Blood Medical Automated count Cell Count Center </content>3.83 MCUMM L<content styleCode="Ital ics"> (4.4-5.9 MCUMM)</content > Erythrocyte mean 26.0-34. <content [facility] corpuscular 0 styleCode="Bold [place] hemoglobin ">Mean Medical [Entitic mass] Corposcular Center by Automated Hemoglobin count </content>27.2 PG<content styleCode="Ital ics"> (26.0-34.0 PG)</content> Erythrocyte mean 80.0-100 <content [facility] corpuscular .0 styleCode="Bold [place] volume [Entitic ">Mean Medical volume] by Corpuscular Center Automated count Volume </content>86.2 FL<content styleCode="Ital ics"> (80.0-100.0 FL)</content> Platelet mean 8.0-11.0 <content [facility] volume [Entitic styleCode="Bold [place] volume] in Blood ">Mean Platelet Medical by Automated Volume Center count </content>9.3 FL<content styleCode="Ital ics"> (8.0-11.0 FL)</content> Platelets 130-400 <content [facility] [#/volume] in styleCode="Bold [place] Blood by ">Platelet Medical Automated count Count Center </content>383 KCUMM<content styleCode="Ital ics"> (130-400 KCUMM)</content > Neutrophils 36-66 Above high <content [facility] [#/volume] in normal styleCode="Bold [place] Blood by ">Neutrophil Medical Automated count </content>68.9 Center % H<content styleCode="Ital ics"> (36-66 %)</content> Erythrocyte mean 32.0-37. Below low normal <content [facility] corpuscular 0 styleCode="Bold [place] hemoglobin ">Mean Corpus. Medical concentration Hgb Center [Mass/volume] by Concentration Automated count (MCHC) </content>31.5 G/DL L<content styleCode="Ital ics"> (32.0-37.0 G/DL)</content> Erythrocyte 11.5-14. Above high <content [facility] distribution 5 normal styleCode="Bold [place] width [Ratio] by ">Red Cell Medical Automated count Distribution Center Width </content>20.0 % H<content styleCode="Ital ics"> (11.5-14.5 %)</content> Lymphocytes 24.0-44. Below low normal <content [facility] [#/volume] in 0 styleCode="Bold [place] Blood by ">Lymphocyte Medical Automated count </content>20.2 Center % L<content styleCode="Ital ics"> (24.0-44.0 %)</content> UNK 1.0-4.8 <content [facility] styleCode="Bold [place] ">Lymphocyte Medical Count Center </content>1.50 KCUMM<content styleCode="Ital ics"> (1.0-4.8 KCUMM)</content > UNK 1.6-7.3 <content [facility] styleCode="Bold [place] ">Neutrophil Medical Count Center </content>5.13 KCUMM<content styleCode="Ital ics"> (1.6-7.3 KCUMM)</content > Eosinophils 0-5.0 <content [facility] [#/volume] in styleCode="Bold [place] Blood by ">Eosinophil Medical Automated count </content>1.9 Center %<content styleCode="Ital ics"> (0-5.0 %)</content> UNK 0.2-0.9 <content [facility] styleCode="Bold [place] ">Monocyte Medical Count Center </content>0.59 KCUMM<content styleCode="Ital ics"> (0.2-0.9 KCUMM)</content > Monocytes 3.0-10.0 <content [facility] [#/volume] in styleCode="Bold [place] Blood by ">Monocyte Medical Automated count </content>7.9 Center %<content styleCode="Ital ics"> (3.0-10.0 %)</content> UNK 0.0-0.3 <content [facility] styleCode="Bold [place] ">Basophil Medical Count Center </content>0.05 KCUMM<content styleCode="Ital ics"> (0.0-0.3 KCUMM)</content > Basophils 0.0-1.0 <content [facility] [#/volume] in styleCode="Bold [place] Blood by ">Basophil Medical Automated count </content>0.7 Center %<content styleCode="Ital ics"> (0.0-1.0 %)</content> UNK 0.0-0.6 <content [facility] styleCode="Bold [place] ">Eosinophil Medical Count Center </content>0.14 KCUMM<content styleCode="Ital ics"> (0.0-0.6 KCUMM)</content > UNK 0-0.1 <content [facility] styleCode="Bold [place] ">Immature Medical Granulocyte Center Count </content>0.03 KCUMM<content styleCode="Ital ics"> (0-0.1 KCUMM)</content > UNK 0 <content [facility] styleCode="Bold [place] ">Nucleated Red Medical Blood Cell Center </content>0.0 /100<content styleCode="Ital ics"> (0 /100)</content> UNK < 1 <content [facility] styleCode="Bold [place] ">Immature Medical Granulocyte Center Ratio </content>0.4 %<content styleCode="Ital ics"> (< 1 %)</content> UNK 0.0 <content [facility] styleCode="Bold [place] ">Nucleated Red Medical Blood Cell Center Count </content>0.00 KCUMM<content styleCode="Ital ics"> (0.0 KCUMM)</content > ID Date Data Source GFR(Creatinine).[id number] 01/20/2019 06:45:00 AM EDT [facility] 0-0400 Name Value Range Interpretation Code Description Data Pebbles rce(s) Supporting Document(s ) UNK > 60 <content [facility] styleCode="Bold"> Medical Cent er EGFR </content>144 GFR<content styleCode="Italic s"> (> 60 GFR)</content> ID Date Data Source CHMROUTINECCDA.[id number] 01/20/2019 06:45:00 AM EDT [facility] -0400 Name Value Range Interpretation Description Data Sup porting Code Source(s) Document(s ) UNK 2.3-3.5 <content styleCode="[facility] d">Globulin Medical </content>2.9 Center G/DL<content styleCode="Zakia lics"> (2.3-3.5 G/DL)</content > UNK >= 1.0 <content [facility] styleCode="Mac [place] d">AG Ratio Medical </content>1.0 Center <content styleCode="Zakia lics"> (>= 1.0 )</content> Magnesium 1.6-2.3 Below low normal <content [facility] [Mass/volume] styleCode="Mac [place] in Serum or d">Magnesium Medical Plasma </content>1.2 Center MG/DL L<content styleCode="Zakia lics"> (1.6-2.3 MG/DL)</conten t> Protein 6.3-8.2 Below low normal <content [facility] [Mass/volume] styleCode="Mac [place] in Serum or d">Total Medical Plasma Protein Center </content>5.9 G/DL L<content styleCode="Zakia lics"> (6.3-8.2 G/DL)</content > Phosphate 2.5-4.5 <content [facility] [Mass/volume] styleCode="Mac [place] in Serum or d">Phosphorus Medical Plasma </content>3.3 Center MG/DL<content styleCode="Zakia lics"> (2.5-4.5 MG/DL)</conten t> ID Date Data Source [facility].[id number] 01/20/2019 06:45:00 AM EDT [facility] Center Name Value Range Interpretation Description Data Sup porting Code Source(s) Document(s ) Potassium 3.5-5.3 Below low <content [facility] [Moles/volume] in normal styleCode="Bold"> [place] ph[facility] Serum or Plasma Potassium Medical </content>3.2 Center MEQ/L L<content styleCode="Italic s"> (3.5-5.3 MEQ/L)</content> Sodium 137-145 <content [facility] [Moles/volume] in styleCode="Bold"> [place] ph[facility] Serum or Plasma Sodium Medical </content>145 Center MEQ/L<content styleCode="Italic s"> (137-145 MEQ/L)</content> Chloride 98-107 <content [facility] [Moles/volume] in styleCode="Bold"> [place] ph[facility] Serum or Plasma Chloride Medical </content>104 Center MEQ/L<content styleCode="Italic s"> (98-107 MEQ/L)</content> UNK 9-20 Below low <content [facility] normal styleCode="Bold"> [facility] BUN </content>7 Medical MG/DL L<content Center styleCode="Italic s"> (9-20 MG/DL)</content> Creatinine 0.5-1.3 <content [facility] [Mass/volume] in styleCode="Bold"> [facility] hs Serum or Plasma Creatinine Medical </content>0.6 Center MG/DL<content styleCode="Italic s"> (0.5-1.3 MG/DL)</content> Carbon dioxide, 22-30 Above high <content [facility] total normal styleCode="Bold"> [place] [Moles/volume] in Carbon Dioxide Medical Serum or Plasma </content>31 Center MEQ/L H<content styleCode="Italic s"> (22-30 MEQ/L)</content> Glucose 74-106 <content [facility] [Mass/volume] in styleCode="Bold"> [facility] hs Serum or Plasma Glucose Medical </content>81 Center MG/DL<content styleCode="Italic s"> (74-106 MG/DL)</content> Calcium 8.4-10. Below low <content [facility] [Mass/volume] in 2 normal styleCode="Bold"> [place] hs Serum or Plasma Calcium Medical </content>8.3 Center MG/DL L<content styleCode="Italic s"> (8.4-10.2 MG/DL)</content> Alkaline 38-126 <content [facility] phosphatase styleCode="Bold"> [place] [Enzymatic Alkaline Medical activity/volume] Phosphatase (ALP) Cente r in Serum or Plasma </content>103 IU/L<content styleCode="Italic s"> (38-126 IU/L)</content> Bilirubin.total 0.2-1.3 <content [facility] [Mass/volume] in styleCode="Bold"> [facility] hs Serum or Plasma Bilirubin Total Medical </content>0.8 Center MG/DL<content styleCode="Italic s"> (0.2-1.3 MG/DL)</content> Aspartate 17-59 <content [facility] aminotransferase styleCode="Bold"> [facility] [Enzymatic Aspartate Medical activity/volume] Aminotransferase Center in Serum or Plasma (AST) </content>32 IU/L<content styleCode="Italic s"> (17-59 IU/L)</content> Alanine 7-50 <content [facility] aminotransferase styleCode="Bold"> [facility] [Enzymatic Alanine Medical activity/volume] Aminotransferase Center in Serum or Plasma (ALT) </content>22 IU/L<content styleCode="Italic s"> (7-50 IU/L)</content> UNK > 60 <content [facility] styleCode="Bold"> [facility] EGFR Medical </content>144 Center GFR<content styleCode="Italic s"> (> 60 GFR)</content> Albumin 3.5-5.0 Below low <content [facility] [Mass/volume] in normal styleCode="Bold"> [facility] hs Serum or Plasma Albumin Medical </content>3.0 Center G/DL L<content styleCode="Italic s"> (3.5-5.0 G/DL)</content> ID Date Data Source Liver 01/19/2019 02:25:00 PM EDT [facility] Profile.[id number] Name Value Range Interpretation Description Data Sup porting Code Source(s) Document(s ) Alanine 7-50 <content [facility] aminotransferase styleCode="Bold"> [facility] [Enzymatic Alanine Medical activity/volume] Aminotransferase Center in Serum or Plasma (ALT) </content>25 IU/L<content styleCode="Italic s"> (7-50 IU/L)</content> Aspartate 17-59 <content [facility] aminotransferase styleCode="Bold"> [facility] [Enzymatic Aspartate Medical activity/volume] Aminotransferase Center in Serum or Plasma (AST) </content>38 IU/L<content styleCode="Italic s"> (17-59 IU/L)</content> Bilirubin.total 0.2-1.3 <content [facility] [Mass/volume] in styleCode="Bold"> [facility] hs Serum or Plasma Bilirubin Total Medical </content>0.3 Center MG/DL<content styleCode="Italic s"> (0.2-1.3 MG/DL)</content> Alkaline 38-126 <content [facility] phosphatase styleCode="Bold"> [facility] [Enzymatic Alkaline Medical activity/volume] Phosphatase (ALP) Cente r in Serum or Plasma </content>96 IU/L<content styleCode="Italic s"> (38-126 IU/L)</content> Albumin 3.5-5.0 Below low <content [facility] [Mass/volume] in normal styleCode="Bold"> Stephan hs Serum or Plasma Albumin Medical </content>3.2 Center G/DL L<content styleCode="Italic s"> (3.5-5.0 G/DL)</content> ID Date Data Source HematologyRou.[id number] 01/19/2019 02:25:00 PM EDT [facility] 0400 Name Value Range Interpretation Description Data Sup porting Code Source(s) Document(s ) Leukocytes 4.4-11.0 Above high <content [facility] [#/volume] in normal styleCode="Bold [place] Blood by ">White Blood Medical Automated count Cell Count Center </content>13.06 KCUMM H<content styleCode="Ital ics"> (4.4-11.0 KCUMM)</content > Erythrocytes 4.4-5.9 Below low normal <content [facility] [#/volume] in styleCode="Bold [place] Blood by ">Red Blood Medical Automated count Cell Count Center </content>3.79 MCUMM L<content styleCode="Ital ics"> (4.4-5.9 MCUMM)</content > Hemoglobin 13.5-17. Below low normal <content [facility] [Mass/volume] in 5 styleCode="Bold [place] Blood ">Hemoglobin Medical </content>10.1 Center G/DL L<content styleCode="Ital ics"> (13.5-17.5 G/DL)</content> Hematocrit 41.0-53. Below low normal <content [facility] [Volume 0 styleCode="Bold [place] Fraction] of ">Hematocrit Medical Blood by </content>32.0 Center Automated count % L<content styleCode="Ital ics"> (41.0-53.0 %)</content> Erythrocyte mean 32.0-37. Below low normal <content [facility] corpuscular 0 styleCode="Bold [place] hemoglobin ">Mean Corpus. Medical concentration Hgb Center [Mass/volume] by Concentration Automated count (MCHC) </content>31.6 G/DL L<content styleCode="Ital ics"> (32.0-37.0 G/DL)</content> Erythrocyte mean 80.0-100 <content [facility] corpuscular .0 styleCode="Bold [place] volume [Entitic ">Mean Medical volume] by Corpuscular Center Automated count Volume </content>84.4 FL<content styleCode="Ital ics"> (80.0-100.0 FL)</content> Erythrocyte mean 26.0-34. <content [facility] corpuscular 0 styleCode="Bold [place] hemoglobin ">Mean Medical [Entitic mass] Corposcular Center by Automated Hemoglobin count </content>26.6 PG<content styleCode="Ital ics"> (26.0-34.0 PG)</content> Neutrophils 36-66 Above high <content [facility] [#/volume] in normal styleCode="Bold [place] Blood by ">Neutrophil Medical Automated count </content>82.8 Center % H<content styleCode="Ital ics"> (36-66 %)</content> Erythrocyte 11.5-14. Above high <content [facility] distribution 5 normal styleCode="Bold [place] width [Ratio] by ">Red Cell Medical Automated count Distribution Center Width </content>20.1 % H<content styleCode="Ital ics"> (11.5-14.5 %)</content> Platelets 130-400 Above high <content [facility] [#/volume] in normal styleCode="Bold [place] Blood by ">Platelet Medical Automated count Count Center </content>453 KCUMM H<content styleCode="Ital ics"> (130-400 KCUMM)</content > Platelet mean 8.0-11.0 <content [facility] volume [Entitic styleCode="Bold [place] volume] in Blood ">Mean Platelet Medical by Automated Volume Center count </content>9.4 FL<content styleCode="Ital ics"> (8.0-11.0 FL)</content> UNK 1.0-4.8 <content [facility] styleCode="Bold [place] ">Lymphocyte Medical Count Center </content>1.42 KCUMM<content styleCode="Ital ics"> (1.0-4.8 KCUMM)</content > Lymphocytes 24.0-44. Below low normal <content [facility] [#/volume] in 0 styleCode="Bold [place] Blood by ">Lymphocyte Medical Automated count </content>10.9 Center % L<content styleCode="Ital ics"> (24.0-44.0 %)</content> UNK 1.6-7.3 Above high <content [facility] normal styleCode="Bold [place] ">Neutrophil Medical Count Center </content>10.81 KCUMM H<content styleCode="Ital ics"> (1.6-7.3 KCUMM)</content > UNK 0.2-0.9 <content [facility] styleCode="Bold [place] ">Monocyte Medical Count Center </content>0.60 KCUMM<content styleCode="Ital ics"> (0.2-0.9 KCUMM)</content > Monocytes 3.0-10.0 <content [facility] [#/volume] in styleCode="Bold [place] Blood by ">Monocyte Medical Automated count </content>4.6 Center %<content styleCode="Ital ics"> (3.0-10.0 %)</content> Basophils 0.0-1.0 <content [facility] [#/volume] in styleCode="Bold [place] Blood by ">Basophil Medical Automated count </content>0.6 Center %<content styleCode="Ital ics"> (0.0-1.0 %)</content> UNK 0.0-0.3 <content [facility] styleCode="Bold [place] ">Basophil Medical Count Center </content>0.08 KCUMM<content styleCode="Ital ics"> (0.0-0.3 KCUMM)</content > UNK 0 <content [facility] styleCode="Bold [place] ">Nucleated Red Medical Blood Cell Center </content>0.0 /100<content styleCode="Ital ics"> (0 /100)</content> Eosinophils 0-5.0 <content [facility] [#/volume] in styleCode="Bold [place] Blood by ">Eosinophil Medical Automated count </content>0.6 Center %<content styleCode="Ital ics"> (0-5.0 %)</content> UNK 0.0-0.6 <content [facility] styleCode="Bold [place] ">Eosinophil Medical Count Center </content>0.08 KCUMM<content styleCode="Ital ics"> (0.0-0.6 KCUMM)</content > UNK < 1 <content styleCode="Bold [place] ">Immature Medical Granulocyte Center Ratio </content>0.5 %<content styleCode="Ital ics"> (< 1 %)</content> UNK 0.0 <content styleCode="Bold [place] ">Nucleated Red Medical Blood Cell Center Count </content>0.00 KCUMM<content styleCode="Ital ics"> (0.0 KCUMM)</content > UNK 0-0.1 <content styleCode="Bold [place] ">Immature Medical Granulocyte Center Count </content>0.07 KCUMM<content styleCode="Ital ics"> (0-0.1 KCUMM)</content > ID Date Data Source GFR(Creatinine).[id number] 01/19/2019 02:25:00 PM EDT [facility] 0-0400 Name Value Range Interpretation Code Description Data Pebbles rce(s) Supporting Document(s ) UNK > 60 <content [facility] styleCode="Bold"> Medical Cent er EGFR </content>144 GFR<content styleCode="Italic s"> (> 60 GFR)</content> ID Date Data Source MROUTINECCDA.[id number] 01/19/2019 02:25:00 PM EDT [facility] -0400 Name Value Range Interpretation Description Data Sup porting Code Source(s) Document(s ) UNK 2.3-3.5 <content [facility] styleCode="Bold Medical ">Globulin Center </content>2.9 G/DL<content styleCode="Ital ics"> (2.3-3.5 G/DL)</content> UNK >= 1.0 <content [facility] styleCode="Bold Medical ">AG Ratio Center </content>1.1 <content styleCode="Ital ics"> (>= 1.0 )</content> Protein 6.3-8.2 Below low normal <content [facility] [Mass/volum styleCode="Bold Medical e] in Serum ">Total Protein Center or Plasma </content>6.1 G/DL L<content styleCode="Ital ics"> (6.3-8.2 G/DL)</content> Lactate 0.7-2.0 Above upper panic <content [place] s [Mass/volum limits styleCode="Bold Medical e] in Serum ">Lactic Acid Center or Plasma </content><cont ent styleCode="Bold ">2.9 MMOLL HH</content><co ntent styleCode="Ital ics"> (0.7-2.0 MMOLL)</content > ID Date Data Source [facility].[id number] 01/19/2019 02:25:00 PM EDT [facility] Center Name Value Range Interpretation Description Data Sup porting Code Source(s) Document(s ) Potassium 3.5-5.3 Below low <content [facility] [Moles/volume] in normal styleCode="Bold"> [place] phs Serum or Plasma Potassium Medical </content>3.2 Center MEQ/L L<content styleCode="Italic s"> (3.5-5.3 MEQ/L)</content> Sodium 137-145 Above high <content [facility] [Moles/volume] in normal styleCode="Bold"> [place] ph[facility] Serum or Plasma Sodium Medical </content>146 Center MEQ/L H<content styleCode="Italic s"> (137-145 MEQ/L)</content> Chloride 98-107 <content [facility] [Moles/volume] in styleCode="Bold"> [place] phs Serum or Plasma Chloride Medical </content>105 Center MEQ/L<content styleCode="Italic s"> (98-107 MEQ/L)</content> UNK > 60 <content [facility] styleCode="Bold"> [facility] EGFR Medical </content>144 Center GFR<content styleCode="Italic s"> (> 60 GFR)</content> Glucose 74-106 <content [facility] [Mass/volume] in styleCode="Bold"> [facility] hs Serum or Plasma Glucose Medical </content>100 Center MG/DL<content styleCode="Italic s"> (74-106 MG/DL)</content> Calcium 8.4-10. <content [facility] [Mass/volume] in 2 styleCode="Bold"> [facility] hs Serum or Plasma Calcium Medical </content>8.7 Center MG/DL<content styleCode="Italic s"> (8.4-10.2 MG/DL)</content> Carbon dioxide, 22-30 <content [facility] total styleCode="Bold"> [facility] [Moles/volume] in Carbon Dioxide Medical Serum or Plasma </content>25 Center MEQ/L<content styleCode="Italic s"> (22-30 MEQ/L)</content> UNK 9-20 <content [facility] styleCode="Bold"> [facility] BUN </content>9 Medical MG/DL<content Center styleCode="Italic s"> (9-20 MG/DL)</content> Creatinine 0.5-1.3 <content [facility] [Mass/volume] in styleCode="Bold"> [facility] hs Serum or Plasma Creatinine Medical </content>0.6 Center MG/DL<content styleCode="Italic s"> (0.5-1.3 MG/DL)</content> Bilirubin.total 0.2-1.3 <content [facility] [Mass/volume] in styleCode="Bold"> [facility] Serum or Plasma Bilirubin Total Medical </content>0.3 Center MG/DL<content styleCode="Italic s"> (0.2-1.3 MG/DL)</content> Alkaline 38-126 <content [facility] phosphatase styleCode="Bold"> [facility] [Enzymatic Alkaline Medical activity/volume] Phosphatase (ALP) Cente r in Serum or Plasma </content>96 IU/L<content styleCode="Italic s"> (38-126 IU/L)</content> Alanine 7-50 <content [facility] aminotransferase styleCode="Bold"> [facility] [Enzymatic Alanine Medical activity/volume] Aminotransferase Center in Serum or Plasma (ALT) </content>25 IU/L<content styleCode="Italic s"> (7-50 IU/L)</content> Aspartate 17-59 <content [facility] aminotransferase styleCode="Bold"> [facility] [Enzymatic Aspartate Medical activity/volume] Aminotransferase Center in Serum or Plasma (AST) </content>38 IU/L<content styleCode="Italic s"> (17-59 IU/L)</content> Albumin 3.5-5.0 Below low <content [facility] [Mass/volume] in normal styleCode="Bold"> [facility] hs Serum or Plasma Albumin Medical </content>3.2 Center G/DL L<content styleCode="Italic s"> (3.5-5.0 G/DL)</content> ID Date Data Source Microbiology.[id number] 01/19/2019 02:20:00 PM EDT [facility] 400 Name Value Range Interpretation Code Description Data Pebbles rce(s) Supporting Document(s ) UNK <item><content [facility] styleCode="Bold"> Medical Cent er Culture Report </content>
<t able><tbody><tr>< td>Specimen Number:</td><td>[id number]</td></tr ><tr><td>Sample Collection Date/Time: </td><td>01/19/2019 2:20 PM</td></tr><tr>< td>Specimen Source:</td><td>B LOOD</td></tr><tr ><td>Blood Culture:</td><td> Collection Plate Date: 01/19/2019 14:31 </td></tr><tr><td >Culture Status:</td><td>P reliminary </td></tr><tr><td >Culture Report:</td><td>C ulture in progress </td></tr></tbody ></table></item> UNK <item><content [facility] styleCode="Bold"> Medical Cent er Culture Status </content>
<t able><tbody><tr>< td>Specimen Number:</td><td>[id number]</td></tr ><tr><td>Sample Collection Date/Time: </td><td>01/19/2019 2:20 PM</td></tr><tr>< td>Specimen Source:</td><td>B LOOD</td></tr><tr ><td>Culture Report:</td><td>C ulture in progress </td></tr><tr><td >Culture Status:</td><td>P reliminary </td></tr><tr><td >Blood Culture:</td><td> Collection Plate Date: 01/19/2019 14:31 </td></tr></tbody ></table></item> ID Date Data Source Microbiology.[id number] 01/19/2019 02:00:00 PM EDT [facility] 400 Name Value Range Interpretation Code Description Data Pebbles rce(s) Supporting Document(s ) UNK <item><content [facility] styleCode="Bold"> Medical [facility] er Culture Status </content>
<t able><tbody><tr>< td>Specimen Number:</td><td>[id number]</td></tr ><tr><td>Sample Collection Date/Time: </td><td>01/19/2019 2:00 PM</td></tr><tr>< td>Specimen Source:</td><td>B LOOD</td></tr><tr ><td>Culture Report:</td><td>C ulture in progress </td></tr><tr><td >Culture Status:</td><td>P reliminary </td></tr><tr><td >Blood Culture:</td><td> Collection Plate Date: 01/19/2019 14:31 </td></tr></tbody ></table></item> UNK <item><content [facility] styleCode="Bold"> Medical [facility] er Culture Report </content>
<t able><tbody><tr>< td>Specimen Number:</td><td>[id number]</td></tr ><tr><td>Sample Collection Date/Time: </td><td>01/19/2019 2:00 PM</td></tr><tr>< td>Specimen Source:</td><td>B LOOD</td></tr><tr ><td>Blood Culture:</td><td> Collection Plate Date: 01/19/2019 14:31 </td></tr><tr><td >Culture Status:</td><td>P reliminary </td></tr><tr><td >Culture Report:</td><td>C ulture in progress </td></tr></tbody ></table></item> ID Date Data Source Liver 01/15/2019 08:54:00 PM EDT [facility] Profile.[id number] Name Value Range Interpretation Description Data Sup porting Code Source(s) Document(s ) Aspartate 17-59 <content [facility] aminotransferase styleCode="Bold"> [facility] [Enzymatic Aspartate Medical activity/volume] Aminotransferase Center in Serum or Plasma (AST) </content>36 IU/L<content styleCode="Italic s"> (17-59 IU/L)</content> Alkaline 38-126 <content [facility] phosphatase styleCode="Bold"> [facility] [Enzymatic Alkaline Medical activity/volume] Phosphatase (ALP) Cente r in Serum or Plasma </content>85 IU/L<content styleCode="Italic s"> (38-126 IU/L)</content> Alanine 7-50 <content [facility] aminotransferase styleCode="Bold"> [facility] [Enzymatic Alanine Medical activity/volume] Aminotransferase Center in Serum or Plasma (ALT) </content>26 IU/L<content styleCode="Italic s"> (7-50 IU/L)</content> Albumin 3.5-5.0 Below low <content [facility] [Mass/volume] in normal styleCode="Bold"> [facility] hs Serum or Plasma Albumin Medical </content>3.1 Center G/DL L<content styleCode="Italic s"> (3.5-5.0 G/DL)</content> UNK 0.0-0.3 <content [facility] styleCode="Bold"> [facility] Bilirubin, Direct Medical </content>< 0.2 Center MG/DL<content styleCode="Italic s"> (0.0-0.3 MG/DL)</content> Bilirubin.total 0.2-1.3 <content [facility] [Mass/volume] in styleCode="Bold"> [facility] hs Serum or Plasma Bilirubin Total Medical </content>0.5 Center MG/DL<content styleCode="Italic s"> (0.2-1.3 MG/DL)</content> ID Date Data Source HematologyRou.[id number] 01/15/2019 08:54:00 PM EDT [facility] 0400 Name Value Range Interpretation Description Data Sup porting Code Source(s) Document(s ) Erythrocytes 4.4-5.9 Below low normal <content [facility] [#/volume] in styleCode="Bold [place] Blood by ">Red Blood Medical Automated count Cell Count Center </content>3.51 MCUMM L<content styleCode="Ital ics"> (4.4-5.9 MCUMM)</content > Hematocrit 41.0-53. Below low normal <content [facility] [Volume 0 styleCode="Bold [place] Fraction] of ">Hematocrit Medical Blood by </content>30.1 Center Automated count % L<content styleCode="Ital ics"> (41.0-53.0 %)</content> Leukocytes 4.4-11.0 <content [facility] [#/volume] in styleCode="Bold [place] Blood by ">White Blood Medical Automated count Cell Count Center </content>8.08 KCUMM<content styleCode="Ital ics"> (4.4-11.0 KCUMM)</content > Hemoglobin 13.5-17. Below low normal <content [facility] [Mass/volume] in 5 styleCode="Bold [place] Blood ">Hemoglobin Medical </content>9.5 Center G/DL L<content styleCode="Ital ics"> (13.5-17.5 G/DL)</content> Erythrocyte mean 26.0-34. <content [facility] corpuscular 0 styleCode="Bold [place] hemoglobin ">Mean Medical [Entitic mass] Corposcular Center by Automated Hemoglobin count </content>27.1 PG<content styleCode="Ital ics"> (26.0-34.0 PG)</content> Erythrocyte mean 80.0-100 <content [facility] corpuscular .0 styleCode="Bold [place] volume [Entitic ">Mean Medical volume] by Corpuscular Center Automated count Volume </content>85.8 FL<content styleCode="Ital ics"> (80.0-100.0 FL)</content> Erythrocyte 11.5-14. Above high <content [facility] distribution 5 normal styleCode="Bold [place] width [Ratio] by ">Red Cell Medical Automated count Distribution Center Width </content>20.4 % H<content styleCode="Ital ics"> (11.5-14.5 %)</content> Erythrocyte mean 32.0-37. Below low normal <content [facility] corpuscular 0 styleCode="Bold [place] hemoglobin ">Mean Corpus. Medical concentration Hgb Center [Mass/volume] by Concentration Automated count (MCHC) </content>31.6 G/DL L<content styleCode="Ital ics"> (32.0-37.0 G/DL)</content> Platelets 130-400 Above high <content [facility] [#/volume] in normal styleCode="Bold [place] Blood by ">Platelet Medical Automated count Count Center </content>406 KCUMM H<content styleCode="Ital ics"> (130-400 KCUMM)</content > Platelet mean 8.0-11.0 <content [facility] volume [Entitic styleCode="Bold [place] volume] in Blood ">Mean Platelet Medical by Automated Volume Center count </content>9.7 FL<content styleCode="Ital ics"> (8.0-11.0 FL)</content> UNK 0 <content [facility] styleCode="Bold [place] ">Nucleated Red Medical Blood Cell Center </content>0.0 /100<content styleCode="Ital ics"> (0 /100)</content> UNK 0.0 <content [facility] styleCode="Bold [place] ">Nucleated Red Medical Blood Cell Center Count </content>0.00 KCUMM<content styleCode="Ital ics"> (0.0 KCUMM)</content > ID Date Data Source GFR(Creatinine).[id number] 01/15/2019 08:54:00 PM EDT [facility] Name Value Range Interpretation Code Description Data Pebbles rce(s) Supporting Document(s ) UNK > 60 <content [facility] styleCode="Bold"> Medical Cent er EGFR </content>80 GFR<content styleCode="Italic s"> (> 60 GFR)</content> ID Date Data Source [facility].[id number] 01/15/2019 08:54:00 PM EDT [facility] Name Value Range Interpretation Description Data Sup porting Code Source(s) Document(s ) Potassium 3.5-5.3 Below low <content [facility] [Moles/volume] in normal styleCode="Bold"> [place] phs Serum or Plasma Potassium Medical </content>3.3 Center MEQ/L L<content styleCode="Italic s"> (3.5-5.3 MEQ/L)</content> UNK 9-20 Below low <content [facility] normal styleCode="Bold"> [facility] BUN </content>5 Medical MG/DL L<content Center styleCode="Italic s"> (9-20 MG/DL)</content> Sodium 137-145 <content [facility] [Moles/volume] in styleCode="Bold"> [place] phs Serum or Plasma Sodium Medical </content>140 Center MEQ/L<content styleCode="Italic s"> (137-145 MEQ/L)</content> Carbon dioxide, 22-30 <content [facility] total styleCode="Bold"> [place] [Moles/volume] in Carbon Dioxide Medical Serum or Plasma </content>26 Center MEQ/L<content styleCode="Italic s"> (22-30 MEQ/L)</content> Chloride 98-107 <content [facility] [Moles/volume] in styleCode="Bold"> [place] ph[facility] Serum or Plasma Chloride Medical </content>104 Center MEQ/L<content styleCode="Italic s"> (98-107 MEQ/L)</content> Glucose 74-106 <content [facility] [Mass/volume] in styleCode="Bold"> [facility] hs Serum or Plasma Glucose Medical </content>88 Center MG/DL<content styleCode="Italic s"> (74-106 MG/DL)</content> Creatinine 0.5-1.3 <content [facility] [Mass/volume] in styleCode="Bold"> [facility] hs Serum or Plasma Creatinine Medical </content>1.0 Center MG/DL<content styleCode="Italic s"> (0.5-1.3 MG/DL)</content> UNK > 60 <content [facility] styleCode="Bold"> [facility] EGFR </content>80 Medical GFR<content Center styleCode="Italic s"> (> 60 GFR)</content> Alanine 7-50 <content [facility] aminotransferase styleCode="Bold"> [facility] [Enzymatic Alanine Medical activity/volume] Aminotransferase Center in Serum or Plasma (ALT) </content>26 IU/L<content styleCode="Italic s"> (7-50 IU/L)</content> Calcium 8.4-10. <content [facility] [Mass/volume] in 2 styleCode="Bold"> [facility] hs Serum or Plasma Calcium Medical </content>8.7 Center MG/DL<content styleCode="Italic s"> (8.4-10.2 MG/DL)</content> Aspartate 17-59 <content [facility] aminotransferase styleCode="Bold"> [facility] [Enzymatic Aspartate Medical activity/volume] Aminotransferase Center in Serum or Plasma (AST) </content>36 IU/L<content styleCode="Italic s"> (17-59 IU/L)</content> Alkaline 38-126 <content [facility] phosphatase styleCode="Bold"> [facility] [Enzymatic Alkaline Medical activity/volume] Phosphatase (ALP) Cente r in Serum or Plasma </content>85 IU/L<content styleCode="Italic s"> (38-126 IU/L)</content> Bilirubin.total 0.2-1.3 <content [facility] [Mass/volume] in styleCode="Bold"> [facility] hs Serum or Plasma Bilirubin Total Medical </content>0.5 Center MG/DL<content styleCode="Italic s"> (0.2-1.3 MG/DL)</content> Albumin 3.5-5.0 Below low <content [facility] [Mass/volume] in normal styleCode="Bold"> [facility] hs Serum or Plasma Albumin Medical </content>3.1 Center G/DL L<content styleCode="Italic s"> (3.5-5.0 G/DL)</content> ID Date Data Source Urinalysis.[id number] 01/13/2019 06:45:00 AM EDT [facility] 0 Name Value Range Interpretation Description Data Sup porting Code Source(s) Document(s ) Color of Urine YELLOW <content [facility] styleCode="[facility] d">Color, Medical Urine Center </content>BROW N <content styleCode="Zakia lics"> (YELLOW )</content> Ketones NEGATIVE <content [facility] [Mass/volume] styleCode="[facility] in Urine by d">Urine Medical Test strip Ketone Center </content>TRAC E MG/DL<content styleCode="Zakia lics"> (NEGATIVE MG/DL)</conten t> UNK CLEAR <content [facility] styleCode="[facility] [place] d">Urine Medical Clarity Center </content>COLIN R <content styleCode="Zakia lics"> (CLEAR )</content> Glucose NEGATIVE <content [facility] [Mass/volume] styleCode="[facility] [place] in Urine by d">Urine Medical Test strip Glucose Center </content>NEGA TIVE MG/DL<content styleCode="Zakia lics"> (NEGATIVE MG/DL)</conten t> UNK NEGATIVE <content [facility] styleCode="[facility] [place] d">Urine Medical Bilirubin Center </content>SMAL L <content styleCode="Zakia lics"> (NEGATIVE )</content> Specific 1.015-1.02 <content [facility] gravity of 5 styleCode="[facility] Urine by Test d">Urine Medical strip Specific Center [place] </content>1.02 0 <content styleCode="Zakia lics"> (1.015-1.025 )</content> Hemoglobin NEGATIVE <content Saint [Presence] in styleCode="[facility] Urine by Test d">Urine Blood Medical strip </content>NEGA Center TIVE <content styleCode="Zakia lics"> (NEGATIVE )</content> Protein NEGATIVE <content [facility] [Mass/volume] styleCode="[facility] [place] in Urine by d">Urine Medical Test strip Protein Center </content>TRAC E MG/DL<content styleCode="Zakia lics"> (NEGATIVE MG/DL)</conten t> pH of Urine by 4.5-8.0 <content [facility] Test strip styleCode="[facility] [place] d">Urine pH Medical </content>6.0 Center <content styleCode="Zakia lics"> (4.5-8.0 )</content> Urobilinogen 0.2-1.0 <content [facility] [Units/volume] styleCode="[facility] in Urine by d">Urine Medical Test strip Urobilinogen Center </content>1.0 MG/DL<content styleCode="Zakia lics"> (0.2-1.0 MG/DL)</conten t> UNK 0-3 <content [facility] styleCode="[facility] [place] d">Urine Red Medical Blood Cell Center </content>0-3 HPF<content styleCode="Zakia lics"> (0-3 HPF)</content> UNK 0-3 <content [facility] styleCode="[facility] [place] d">Urine White Medical Blood Cell Center </content>5 - 10 HPF<content styleCode="Zakia lics"> (0-3 HPF)</content> Nitrite NEGATIVE <content [facility] [Presence] in styleCode="Mac Jacomes Urine by Test d">Urine Medical strip Nitrite Center </content>NEGA TIVE <content styleCode="Zakia lics"> (NEGATIVE )</content> Leukocyte NEGATIVE <content [facility] esterase styleCode="[facility] [Presence] in d">Urine Medical Urine by Test Leukocyte Center strip </content>TRAC E <content styleCode="Zakia lics"> (NEGATIVE )</content> UNK <content [facility] styleCode="[facility] [place] d">Epithelial Medical Cell Center </content>2-5 LPF (Reference Range: not available)<br/ > UNK NONE SEEN <content [facility] styleCode="[facility] [place] d">Urine Mucus Medical </content>MANY Center LPF<content styleCode="Zakia lics"> (NONE SEEN LPF)</content> UNK <content [facility] styleCode="[facility] [place] d">Hyaline Medical Cast Center </content>5 - 10 LPF (Reference Range: not available)<br/ > ID Date Data Source CHMROUTINECCDA.[id number] 01/13/2019 06:45:00 AM EDT [facility] -0400 Name Value Range Interpretation Description Data Sup porting Code Source(s) Document(s ) Cannabinoids <content [facility] [Presence] in styleCode="[facility] Urine by Screen d">Cannabinoid Medical method >50 ng/mL s [place] </content>NEGA TIVE NG/ML (Reference Range: not available)<br/ > ID Date Data Source Microbiology.[id number] 01/13/2019 06:45:00 AM EDT [facility] 400 Name Value Range Interpretation Code Description Data Pebbles rce(s) Supporting Document(s ) UNK <item><content [facility] styleCode="Bold"> Medical Cent er Culture Report </content>
<t able><tbody><tr>< td>Specimen Number:</td><td>[id number]</td></tr ><tr><td>Sample Collection Date/Time: </td><td>01/13/2019 6:45 AM</td></tr><tr>< td>Specimen Source:</td><td>U RINE</td></tr><tr ><td>Urine Culture:</td><td> Collection Plate Date: 01/13/2019 06:50 </td></tr><tr><td >Culture Status:</td><td>P reliminary </td></tr><tr><td >Culture Report:</td><td>C ulture in progress </td></tr></tbody ></table></item> UNK <item><content [facility] styleCode="Bold"> Medical Cent er Culture Status </content>
<t able><tbody><tr>< td>Specimen Number:</td><td>[id number]</td></tr ><tr><td>Sample Collection Date/Time: </td><td>01/13/2019 6:45 AM</td></tr><tr>< td>Specimen Source:</td><td>U RINE</td></tr><tr ><td>Culture Status:</td><td>P reliminary </td></tr><tr><td >Culture Report:</td><td>C ulture in progress </td></tr><tr><td >Urine Culture:</td><td> Collection Plate Date: 01/13/2019 06:50 </td></tr></tbody ></table></item> ID Date Data Source Liver 01/12/2019 09:05:00 PM EDT [facility] Profile.[id number] Name Value Range Interpretation Description Data Sup porting Code Source(s) Document(s ) Alkaline 38-126 <content [facility] phosphatase styleCode="Bold"> [place] [Enzymatic Alkaline Medical activity/volume] Phosphatase (ALP) Cente r in Serum or Plasma </content>79 IU/L<content styleCode="Italic s"> (38-126 IU/L)</content> Alanine 7-50 <content [facility] aminotransferase styleCode="Bold"> [facility] [Enzymatic Alanine Medical activity/volume] Aminotransferase Center in Serum or Plasma (ALT) </content>41 IU/L<content styleCode="Italic s"> (7-50 IU/L)</content> Aspartate 17-59 Above high <content [facility] aminotransferase normal styleCode="Bold"> [facility] [Enzymatic Aspartate Medical activity/volume] Aminotransferase Center in Serum or Plasma (AST) </content>63 IU/L H<content styleCode="Italic s"> (17-59 IU/L)</content> Bilirubin.total 0.2-1.3 <content [facility] [Mass/volume] in styleCode="Bold"> [facility] Serum or Plasma Bilirubin Total Medical </content>0.4 Center MG/DL<content styleCode="Italic s"> (0.2-1.3 MG/DL)</content> Albumin 3.5-5.0 Below low <content [facility] [Mass/volume] in normal styleCode="Bold"> [facility] Serum or Plasma Albumin Medical </content>3.2 Center G/DL L<content styleCode="Italic s"> (3.5-5.0 G/DL)</content> ID Date Data Source GFR(Creatinine).[id number] 01/12/2019 09:05:00 PM EDT [facility] 0-0400 Name Value Range Interpretation Code Description Data Pebbles rce(s) Supporting Document(s ) UNK > 60 <content [facility] styleCode="Bold"> Medical Cent er EGFR </content>65 GFR<content styleCode="Italic s"> (> 60 GFR)</content> ID Date Data Source CHMROUTINECCDA.[id number] 01/12/2019 09:05:00 PM EDT [facility] -0400 Name Value Range Interpretation Description Data Sup porting Code Source(s) Document(s ) UNK >= 1.0 <content [facility] styleCode="Bold Medical ">AG Ratio Center </content>1.1 <content styleCode="Ital ics"> (>= 1.0 )</content> UNK 2.3-3.5 <content [facility] styleCode="Bold Medical ">Globulin Center </content>2.9 G/DL<content styleCode="Ital ics"> (2.3-3.5 G/DL)</content> Protein 6.3-8.2 Below low normal <content [facility] [Mass/volum styleCode="Bold Medical e] in Serum ">Total Protein Center or Plasma </content>6.1 G/DL L<content styleCode="Ital ics"> (6.3-8.2 G/DL)</content> ID Date Data Source [facility].[id number] 01/12/2019 09:05:00 PM EDT [facility] Name Value Range Interpretation Description Data Sup porting Code Source(s) Document(s ) Sodium 137-145 <content [facility] [Moles/volume] in styleCode="Bold"> [facility] Serum or Plasma Sodium Medical </content>142 Center MEQ/L<content styleCode="Italic s"> (137-145 MEQ/L)</content> Carbon dioxide, 22-30 <content [facility] total styleCode="Bold"> [place] [Moles/volume] in Carbon Dioxide Medical Serum or Plasma </content>22 Center MEQ/L<content styleCode="Italic s"> (22-30 MEQ/L)</content> Potassium 3.5-5.3 Below low <content [facility] [Moles/volume] in normal styleCode="Bold"> [facility] Serum or Plasma Potassium Medical </content>3.1 Center MEQ/L L<content styleCode="Italic s"> (3.5-5.3 MEQ/L)</content> UNK 9-20 <content [facility] styleCode="Bold"> [place] BUN </content>11 Medical MG/DL<content Center styleCode="Italic s"> (9-20 MG/DL)</content> Creatinine 0.5-1.3 <content [facility] [Mass/volume] in styleCode="Bold"> [facility] Serum or Plasma Creatinine Medical </content>1.2 Center MG/DL<content styleCode="Italic s"> (0.5-1.3 MG/DL)</content> Chloride 98-107 <content [facility] [Moles/volume] in styleCode="Bold"> [facility] Serum or Plasma Chloride Medical </content>103 Center MEQ/L<content styleCode="Italic s"> (98-107 MEQ/L)</content> Aspartate 17-59 Above high <content [facility] aminotransferase normal styleCode="Bold"> [facility] [Enzymatic Aspartate Medical activity/volume] Aminotransferase Center in Serum or Plasma (AST) </content>63 IU/L H<content styleCode="Italic s"> (17-59 IU/L)</content> Alkaline 38-126 <content [facility] phosphatase styleCode="Bold"> [place] [Enzymatic Alkaline Medical activity/volume] Phosphatase (ALP) Cente r in Serum or Plasma </content>79 IU/L<content styleCode="Italic s"> (38-126 IU/L)</content> Calcium 8.4-10. <content [facility] [Mass/volume] in 2 styleCode="Bold"> [facility] Serum or Plasma Calcium Medical </content>8.7 Center MG/DL<content styleCode="Italic s"> (8.4-10.2 MG/DL)</content> UNK > 60 <content [facility] styleCode="Bold"> [place] EGFR </content>65 Medical GFR<content Center styleCode="Italic s"> (> 60 GFR)</content> Glucose 74-106 <content [facility] [Mass/volume] in styleCode="Bold"> [facility] Serum or Plasma Glucose Medical </content>95 Center MG/DL<content styleCode="Italic s"> (74-106 MG/DL)</content> Alanine 7-50 <content [facility] aminotransferase styleCode="Bold"> [facility] [Enzymatic Alanine Medical activity/volume] Aminotransferase Center in Serum or Plasma (ALT) </content>41 IU/L<content styleCode="Italic s"> (7-50 IU/L)</content> Bilirubin.total 0.2-1.3 <content [facility] [Mass/volume] in styleCode="Bold"> [facility] Serum or Plasma Bilirubin Total Medical </content>0.4 Center MG/DL<content styleCode="Italic s"> (0.2-1.3 MG/DL)</content> Albumin 3.5-5.0 Below low <content [facility] [Mass/volume] in normal styleCode="Bold"> [facility] Serum or Plasma Albumin Medical </content>3.2 Center G/DL L<content styleCode="Italic s"> (3.5-5.0 G/DL)</content> ID Date Data Source Liver 01/12/2019 08:15:00 PM EDT [facility] Profile.[id number] Name Value Range Interpretation Description Data Sup porting Code Source(s) Document(s ) Aspartate <content [facility] aminotransferase styleCode="Bold"> [facility] [Enzymatic Aspartate Medical activity/volume] Aminotransferase Center in Serum or Plasma (AST) </content>Test not performed. IU/L (Reference Range: not available)
Alanine <content [facility] aminotransferase styleCode="Bold"> [facility] [Enzymatic Alanine Medical activity/volume] Aminotransferase Center in Serum or Plasma (ALT) </content>Test not performed. IU/L (Reference Range: not available)
Alkaline <content [facility] phosphatase styleCode="Bold"> [place] [Enzymatic Alkaline Medical activity/volume] Phosphatase (ALP) Cente r in Serum or Plasma </content>Test not performed. IU/L (Reference Range: not available)
Albumin <content [facility] [Mass/volume] in styleCode="Bold"> [facility] Serum or Plasma Albumin Medical </content>Test Center not performed. G/DL (Reference Range: not available)
Bilirubin.total <content [facility] [Mass/volume] in styleCode="Bold"> [facility] Serum or Plasma Bilirubin Total Medical </content>Test Center not performed. MG/DL (Reference Range: not available)
UNK <content [facility] styleCode="Bold"> [place] Bilirubin, Direct Medical </content>Test Center not performed. MG/DL (Reference Range: not available)
ID Date Data Source HematologyRou.[id number] 01/12/2019 08:15:00 PM EDT [facility] 0400 Name Value Range Interpretation Description Data Sup porting Code Source(s) Document(s ) Hemoglobin 13.5-17. Below low normal <content [facility] [Mass/volume] in 5 styleCode="Bold [place] Blood ">Hemoglobin Medical </content>9.8 Center G/DL L<content styleCode="Ital ics"> (13.5-17.5 G/DL)</content> Erythrocytes 4.4-5.9 Below low normal <content [facility] [#/volume] in styleCode="Bold [place] Blood by ">Red Blood Medical Automated count Cell Count Center </content>3.65 MCUMM L<content styleCode="Ital ics"> (4.4-5.9 MCUMM)</content > Leukocytes 4.4-11.0 <content [facility] [#/volume] in styleCode="Bold [place] Blood by ">White Blood Medical Automated count Cell Count Center </content>7.84 KCUMM<content styleCode="Ital ics"> (4.4-11.0 KCUMM)</content > Erythrocyte mean 26.0-34. <content [facility] corpuscular 0 styleCode="Bold [place] hemoglobin ">Mean Medical [Entitic mass] Corposcular Center by Automated Hemoglobin count </content>26.8 PG<content styleCode="Ital ics"> (26.0-34.0 PG)</content> Erythrocyte mean 32.0-37. Below low normal <content [facility] corpuscular 0 styleCode="Bold [place] hemoglobin ">Mean Corpus. Medical concentration Hgb Center [Mass/volume] by Concentration Automated count (MCHC) </content>31.0 G/DL L<content styleCode="Ital ics"> (32.0-37.0 G/DL)</content> Hematocrit 41.0-53. Below low normal <content [facility] [Volume 0 styleCode="Bold [place] Fraction] of ">Hematocrit Medical Blood by </content>31.6 Center Automated count % L<content styleCode="Ital ics"> (41.0-53.0 %)</content> Erythrocyte mean 80.0-100 <content [facility] corpuscular .0 styleCode="Bold [place] volume [Entitic ">Mean Medical volume] by Corpuscular Center Automated count Volume </content>86.6 FL<content styleCode="Ital ics"> (80.0-100.0 FL)</content> UNK 0 <content [facility] styleCode="Bold [place] ">Nucleated Red Medical Blood Cell Center </content>0.0 /100<content styleCode="Ital ics"> (0 /100)</content> Erythrocyte 11.5-14. Above high <content [facility] distribution 5 normal styleCode="Bold [place] width [Ratio] by ">Red Cell Medical Automated count Distribution Center Width </content>21.7 % H<content styleCode="Ital ics"> (11.5-14.5 %)</content> Platelet mean 8.0-11.0 <content [facility] volume [Entitic styleCode="Bold [place] volume] in Blood ">Mean Platelet Medical by Automated Volume Center count </content>9.7 FL<content styleCode="Ital ics"> (8.0-11.0 FL)</content> UNK 0.0 <content [facility] styleCode="Bold [place] ">Nucleated Red Medical Blood Cell Center Count </content>0.00 KCUMM<content styleCode="Ital ics"> (0.0 KCUMM)</content > Platelets 130-400 <content [facility] [#/volume] in styleCode="Bold [place] Blood by ">Platelet Medical Automated count Count Center </content>362 KCUMM<content styleCode="Ital ics"> (130-400 KCUMM)</content > ID Date Data Source GFR(Creatinine).[id number] 01/12/2019 08:15:00 PM EDT [facility] 0-0400 Name Value Range Interpretation Code Description Data Pebbles rce(s) Supporting Document(s ) UNK <content [facility] styleCode="Bold"> Medical Cent er EGFR </content>Test not performed. GFR (Reference Range: not available)
ID Date Data Source BMP.[id number] 01/12/2019 08:15:00 PM EDT [facility] Name Value Range Interpretation Description Data Sup porting Code Source(s) Document(s ) Sodium <content [facility] [Moles/volume] in styleCode="Bold"> [place] ph[facility] Serum or Plasma Sodium Medical </content>Test Center not performed. MEQ/L (Reference Range: not available)
Chloride <content [facility] [Moles/volume] in styleCode="Bold"> [place] phs Serum or Plasma Chloride Medical </content>Test Center not performed. MEQ/L (Reference Range: not available)
UNK <content [facility] styleCode="Bold"> [place] BUN Medical </content>Test Center not performed. MG/DL (Reference Range: not available)
Creatinine <content [facility] [Mass/volume] in styleCode="Bold"> [facility] hs Serum or Plasma Creatinine Medical </content>Test Center not performed. MG/DL (Reference Range: not available)
Potassium <content [facility] [Moles/volume] in styleCode="Bold"> [place] phs Serum or Plasma Potassium Medical </content>Test Center not performed. MEQ/L (Reference Range: not available)
Carbon dioxide, <content [facility] total styleCode="Bold"> [place] [Moles/volume] in Carbon Dioxide Medical Serum or Plasma </content>Test Center not performed. MEQ/L (Reference Range: not available)
Aspartate <content [facility] aminotransferase styleCode="Bold"> [facility] [Enzymatic Aspartate Medical activity/volume] Aminotransferase Center in Serum or Plasma (AST) </content>Test not performed. IU/L (Reference Range: not available)
Glucose <content [facility] [Mass/volume] in styleCode="Bold"> [facility] hs Serum or Plasma Glucose Medical </content>Test Center not performed. MG/DL (Reference Range: not available)
Alanine <content [facility] aminotransferase styleCode="Bold"> [facility] hs [Enzymatic Alanine Medical activity/volume] Aminotransferase Center in Serum or Plasma (ALT) </content>Test not performed. IU/L (Reference Range: not available)
UNK <content [facility] styleCode="Bold"> [place] EGFR Medical </content>Test Center not performed. GFR (Reference Range: not available)
Calcium <content [facility] [Mass/volume] in styleCode="Bold"> [facility] hs Serum or Plasma Calcium Medical </content>Test Center not performed. MG/DL (Reference Range: not available)
Alkaline <content [facility] phosphatase styleCode="Bold"> [facility] [Enzymatic Alkaline Medical activity/volume] Phosphatase (ALP) Cente r in Serum or Plasma </content>Test not performed. IU/L (Reference Range: not available)
Bilirubin.total <content [facility] [Mass/volume] in styleCode="Bold"> [facility] hs Serum or Plasma Bilirubin Total Medical </content>Test Center not performed. MG/DL (Reference Range: not available)
Albumin <content [facility] [Mass/volume] in styleCode="Bold"> [facility] hs Serum or Plasma Albumin Medical </content>Test Center not performed. G/DL (Reference Range: not available)
ID Date Data Source HematologyRou.[id number] 12/18/2018 08:50:00 PM EDT [facility] 0400 Name Value Range Interpretation Description Data Sup porting Code Source(s) Document(s ) Hemoglobin 13.5-17. Below low normal <content [facility] [Mass/volume] in 5 styleCode="Bold [place] Blood ">Hemoglobin Medical </content>10.2 Center G/DL L<content styleCode="Ital ics"> (13.5-17.5 G/DL)</content> Erythrocytes 4.4-5.9 Below low normal <content [facility] [#/volume] in styleCode="Bold [place] Blood by ">Red Blood Medical Automated count Cell Count Center </content>3.97 MCUMM L<content styleCode="Ital ics"> (4.4-5.9 MCUMM)</content > Leukocytes 4.4-11.0 Below low normal <content [facility] [#/volume] in styleCode="Bold [place] Blood by ">White Blood Medical Automated count Cell Count Center </content>4.04 KCUMM L<content styleCode="Ital ics"> (4.4-11.0 KCUMM)</content > Erythrocyte mean 80.0-100 <content [facility] corpuscular .0 styleCode="Bold [place] volume [Entitic ">Mean Medical volume] by Corpuscular Center Automated count Volume </content>81.9 FL<content styleCode="Ital ics"> (80.0-100.0 FL)</content> Hematocrit 41.0-53. Below low normal <content [facility] [Volume 0 styleCode="Bold [place] Fraction] of ">Hematocrit Medical Blood by </content>32.5 Center Automated count % L<content styleCode="Ital ics"> (41.0-53.0 %)</content> Erythrocyte mean 26.0-34. Below low normal <content [facility] corpuscular 0 styleCode="Bold [place] hemoglobin ">Mean Medical [Entitic mass] Corposcular Center by Automated Hemoglobin count </content>25.7 PG L<content styleCode="Ital ics"> (26.0-34.0 PG)</content> Erythrocyte mean 32.0-37. Below low normal <content [facility] corpuscular 0 styleCode="Bold [place] hemoglobin ">Mean Corpus. Medical concentration Hgb Center [Mass/volume] by Concentration Automated count (MCHC) </content>31.4 G/DL L<content styleCode="Ital ics"> (32.0-37.0 G/DL)</content> Erythrocyte 11.5-14. Above high <content [facility] distribution 5 normal styleCode="Bold [place] width [Ratio] by ">Red Cell Medical Automated count Distribution Center Width </content>21.6 % H<content styleCode="Ital ics"> (11.5-14.5 %)</content> UNK 0 <content [facility] styleCode="Bold [place] ">Nucleated Red Medical Blood Cell Center </content>0.0 /100<content styleCode="Ital ics"> (0 /100)</content> Platelet mean 8.0-11.0 <content [facility] volume [Entitic styleCode="Bold [place] volume] in Blood ">Mean Platelet Medical by Automated Volume Center count </content>10.1 FL<content styleCode="Ital ics"> (8.0-11.0 FL)</content> Platelets 130-400 <content [facility] [#/volume] in styleCode="Bold [place] Blood by ">Platelet Medical Automated count Count Center </content>173 KCUMM<content styleCode="Ital ics"> (130-400 KCUMM)</content > UNK 0.0 <content [facility] styleCode="Bold [place] ">Nucleated Red Medical Blood Cell Center Count </content>0.00 KCUMM<content styleCode="Ital ics"> (0.0 KCUMM)</content > ID Date Data Source GFR(Creatinine).[id number] 12/18/2018 08:50:00 PM EDT [facility] 0-0400 Name Value Range Interpretation Code Description Data Pebbles rce(s) Supporting Document(s ) UNK > 60 <content [facility] styleCode="Bold"> Medical Cent er EGFR </content>145 GFR<content styleCode="Italic s"> (> 60 GFR)</content> ID Date Data Source [employer].[id number] 12/18/2018 08:50:00 PM EDT [facility] -0400 Name Value Range Interpretation Description Data Sup porting Code Source(s) Document(s ) Troponin < 0.034 <content [facility] I.cardiac styleCode="Bold [place] [Mass/volume ">Troponin I Medical ] in Serum </content>< Center or Plasma 0.012 NG/ML<content styleCode="Ital ics"> (< 0.034 NG/ML)</content > ID Date Data Source [facility].[id number] 12/18/2018 08:50:00 PM EDT [facility] Name Value Range Interpretation Description Data Sup porting Code Source(s) Document(s ) Carbon 22-30 Above high normal <content [facility] dioxide, total styleCode="[facility] [place] [Moles/volume] d">Carbon Medical in Serum or Dioxide Center Plasma </content>31 MEQ/L H<content styleCode="Zakia lics"> (22-30 MEQ/L)</conten t> Sodium 137-145 <content [facility] [Moles/volume] styleCode="Mac [place] in Serum or d">Sodium Medical Plasma </content>144 Center MEQ/L<content styleCode="Zakia lics"> (137-145 MEQ/L)</conten t> Creatinine 0.5-1.3 <content [facility] [Mass/volume] styleCode="[facility] [place] in Serum or d">Creatinine Medical Plasma </content>0.6 Center MG/DL<content styleCode="Zakia lics"> (0.5-1.3 MG/DL)</conten t> Chloride 98-107 <content [facility] [Moles/volume] styleCode="Mac [place] in Serum or d">Chloride Medical Plasma </content>100 Center MEQ/L<content styleCode="Zakia lics"> (98-107 MEQ/L)</conten t> UNK 9-20 Below low normal <content [facility] styleCode="[facility] [place] d">BUN Medical </content>8 Center MG/DL L<content styleCode="Zakia lics"> (9-20 MG/DL)</conten t> Potassium 3.5-5.3 Below low normal <content [facility] [Moles/volume] styleCode="[facility] [place] in Serum or d">Potassium Medical Plasma </content>3.2 Center MEQ/L L<content styleCode="Zakia lics"> (3.5-5.3 MEQ/L)</conten t> UNK > 60 <content [facility] styleCode="[facility] [place] d">EGFR Medical </content>145 Center GFR<content styleCode="Zakia lics"> (> 60 GFR)</content> Glucose 74-106 <content [facility] [Mass/volume] styleCode="[facility] [place] in Serum or d">Glucose Medical Plasma </content>88 Center MG/DL<content styleCode="Zakia lics"> (74-106 MG/DL)</conten t> Calcium 8.4-10.2 <content [facility] [Mass/volume] styleCode="Mac [place] in Serum or d">Calcium Medical Plasma </content>8.7 Center MG/DL<content styleCode="Zakia lics"> (8.4-10.2 MG/DL)</conten t> ID Date Data Source HematologyRou.[id number] 12/08/2018 03:50:00 PM EDT [facility] 0400 Name Value Range Interpretation Description Data Sup porting Code Source(s) Document(s ) Erythrocytes 4.4-5.9 Below low normal <content [facility] [#/volume] in styleCode="Bold [place] Blood by ">Red Blood Medical Automated count Cell Count Center </content>3.80 MCUMM L<content styleCode="Ital ics"> (4.4-5.9 MCUMM)</content > Hemoglobin 13.5-17. Below low normal <content [facility] [Mass/volume] in 5 styleCode="Bold [place] Blood ">Hemoglobin Medical </content>9.7 Center G/DL L<content styleCode="Ital ics"> (13.5-17.5 G/DL)</content> Leukocytes 4.4-11.0 <content [facility] [#/volume] in styleCode="Bold [place] Blood by ">White Blood Medical Automated count Cell Count Center </content>7.08 KCUMM<content styleCode="Ital ics"> (4.4-11.0 KCUMM)</content > Hematocrit 41.0-53. Below low normal <content [facility] [Volume 0 styleCode="Bold [place] Fraction] of ">Hematocrit Medical Blood by </content>31.2 Center Automated count % L<content styleCode="Ital ics"> (41.0-53.0 %)</content> Erythrocyte mean 26.0-34. Below low normal <content [facility] corpuscular 0 styleCode="Bold [place] hemoglobin ">Mean Medical [Entitic mass] Corposcular Center by Automated Hemoglobin count </content>25.5 PG L<content styleCode="Ital ics"> (26.0-34.0 PG)</content> Erythrocyte 11.5-14. Above high <content [facility] distribution 5 normal styleCode="Bold [place] width [Ratio] by ">Red Cell Medical Automated count Distribution Center Width </content>20.7 % H<content styleCode="Ital ics"> (11.5-14.5 %)</content> Erythrocyte mean 80.0-100 <content [facility] corpuscular .0 styleCode="Bold [place] volume [Entitic ">Mean Medical volume] by Corpuscular Center Automated count Volume </content>82.1 FL<content styleCode="Ital ics"> (80.0-100.0 FL)</content> Erythrocyte mean 32.0-37. Below low normal <content [facility] corpuscular 0 styleCode="Bold [place] hemoglobin ">Mean Corpus. Medical concentration Hgb Center [Mass/volume] by Concentration Automated count (MCHC) </content>31.1 G/DL L<content styleCode="Ital ics"> (32.0-37.0 G/DL)</content> UNK 0.0 <content [facility] styleCode="Bold [place] ">Nucleated Red Medical Blood Cell Center Count </content>0.00 KCUMM<content styleCode="Ital ics"> (0.0 KCUMM)</content > Platelets 130-400 <content [facility] [#/volume] in styleCode="Bold [place] Blood by ">Platelet Medical Automated count Count Center </content>220 KCUMM<content styleCode="Ital ics"> (130-400 KCUMM)</content > UNK 0 <content [facility] styleCode="Bold [place] ">Nucleated Red Medical Blood Cell Center </content>0.0 /100<content styleCode="Ital ics"> (0 /100)</content> Platelet mean 8.0-11.0 <content [facility] volume [Entitic styleCode="Bold [place] volume] in Blood ">Mean Platelet Medical by Automated Volume Center count </content>9.3 FL<content styleCode="Ital ics"> (8.0-11.0 FL)</content> ID Date Data Source GFR(Creatinine).[id number] 12/08/2018 03:50:00 PM EDT [facility] 0-0400 Name Value Range Interpretation Code Description Data Pebbles rce(s) Supporting Document(s ) UNK > 60 <content [facility] styleCode="Bold"> Medical Cent er EGFR </content>145 GFR<content styleCode="Italic s"> (> 60 GFR)</content> ID Date Data Source [facility].[id number] 12/08/2018 03:50:00 PM EDT [facility] Name Value Range Interpretation Description Data Sup porting Code Source(s) Document(s ) Carbon 22-30 <content [facility] dioxide, total styleCode="Mac Ishaan [Moles/volume] d">Carbon Medical in Serum or Dioxide Center Plasma </content>27 MEQ/L<content styleCode="Zakia lics"> (22-30 MEQ/L)</conten t> Chloride 98-107 <content [facility] [Moles/volume] styleCode="Mac [place] in Serum or d">Chloride Medical Plasma </content>104 Center MEQ/L<content styleCode="Zakia lics"> (98-107 MEQ/L)</conten t> Potassium 3.5-5.3 Below lower panic <content [facility] [Moles/volume] limits styleCode="Mac [place] in Serum or d">Potassium Medical Plasma </content><con Center tent styleCode="Mac d">2.9 MEQ/L LL</content><c ontent styleCode="Zakia lics"> (3.5-5.3 MEQ/L)</conten t> Sodium 137-145 Above high normal <content [facility] [Moles/volume] styleCode="Mac [place] in Serum or d">Sodium Medical Plasma </content>146 Center MEQ/L H<content styleCode="Zakia lics"> (137-145 MEQ/L)</conten t> Creatinine 0.5-1.3 <content [facility] [Mass/volume] styleCode="Mac [place] in Serum or d">Creatinine Medical Plasma </content>0.6 Center MG/DL<content styleCode="Zakia lics"> (0.5-1.3 MG/DL)</conten t> Calcium 8.4-10.2 <content [facility] [Mass/volume] styleCode="Mac [place] in Serum or d">Calcium Medical Plasma </content>8.8 Center MG/DL<content styleCode="Zakia lics"> (8.4-10.2 MG/DL)</conten t> Glucose 74-106 Above high normal <content [facility] [Mass/volume] styleCode="Mac Quiros in Serum or d">Glucose Medical Plasma </content>107 Center MG/DL H<content styleCode="Zakia lics"> (74-106 MG/DL)</conten t> UNK > 60 <content [facility] styleCode="Mac [place] d">EGFR Medical </content>145 Center GFR<content styleCode="Zakia lics"> (> 60 GFR)</content> UNK 9-20 Below low normal <content [facility] styleCode="Mac Jacomes d">BUN Medical </content>7 Center MG/DL L<content styleCode="Zakia lics"> (9-20 MG/DL)</conten t> ID Date Data Source [facility] 10/23/2018 07:20:00 PM EDT [facility] Name Value Range Interpretation Description Data Sup porting Code Source(s) Document(s ) Erythrocytes 4.4-5.9 Below low normal <content [facility] [#/volume] in styleCode="Bold [place] Blood by ">Red Blood Medical Automated count Cell Count Center </content>3.95 MCUMM L<content styleCode="Ital ics"> (4.4-5.9 MCUMM)</content > Leukocytes 4.4-11.0 <content [facility] [#/volume] in styleCode="Bold [place] Blood by ">White Blood Medical Automated count Cell Count Center </content>7.19 KCUMM<content styleCode="Ital ics"> (4.4-11.0 KCUMM)</content > Erythrocyte mean 80.0-100 <content [facility] corpuscular .0 styleCode="Bold Ishaan volume [Entitic ">Mean Medical volume] by Corpuscular Center Automated count Volume </content>78.7 FL<content styleCode="Ital ics"> (80.0-100.0 FL)</content> Hematocrit 41.0-53. Below low normal <content [facility] [Volume 0 styleCode="Bold Ish[place] Fraction] of ">Hematocrit Medical Blood by </content>31.1 Center Automated count % L<content styleCode="Ital ics"> (41.0-53.0 %)</content> Hemoglobin 13.5-17. Below low normal <content [facility] [Mass/volume] in 5 styleCode="Bold Ish[place] Blood ">Hemoglobin Medical </content>9.1 Center G/DL L<content styleCode="Ital ics"> (13.5-17.5 G/DL)</content> Erythrocyte 11.5-14. Above high <content [facility] distribution 5 normal styleCode="Bold Ishaan width [Ratio] by ">Red Cell Medical Automated count Distribution Center Width </content>20.1 % H<content styleCode="Ital ics"> (11.5-14.5 %)</content> Erythrocyte mean 26.0-34. Below low normal <content [facility] corpuscular 0 styleCode="Bold [place] hemoglobin ">Mean Medical [Entitic mass] Corposcular Center by Automated Hemoglobin count </content>23.0 PG L<content styleCode="Ital ics"> (26.0-34.0 PG)</content> Erythrocyte mean 32.0-37. Below low normal <content [facility] corpuscular 0 styleCode="Bold Ish[place] hemoglobin ">Mean Corpus. Medical concentration Hgb Center [Mass/volume] by Concentration Automated count (MCHC) </content>29.3 G/DL L<content styleCode="Ital ics"> (32.0-37.0 G/DL)</content> Platelet mean 8.0-11.0 <content [facility] volume [Entitic styleCode="Bold Ishaan volume] in Blood ">Mean Platelet Medical by Automated Volume Center count </content>9.7 FL<content styleCode="Ital ics"> (8.0-11.0 FL)</content> Neutrophils 36-66 Above high <content [facility] [#/volume] in normal styleCode="Bold [place] Blood by ">Neutrophil Medical Automated count </content>69.9 Center % H<content styleCode="Ital ics"> (36-66 %)</content> Platelets 130-400 <content [facility] [#/volume] in styleCode="Bold Ish[place] Blood by ">Platelet Medical Automated count Count Center </content>295 KCUMM<content styleCode="Ital ics"> (130-400 KCUMM)</content > UNK 1.6-7.3 <content [facility] styleCode="Bold Ishaan ">Neutrophil Medical Count Center </content>5.03 KCUMM<content styleCode="Ital ics"> (1.6-7.3 KCUMM)</content > Monocytes 3.0-10.0 <content [facility] [#/volume] in styleCode="Bold Ish[place] Blood by ">Monocyte Medical Automated count </content>9.6 Center %<content styleCode="Ital ics"> (3.0-10.0 %)</content> Lymphocytes 24.0-44. Below low normal <content [facility] [#/volume] in 0 styleCode="Bold Ish[place] Blood by ">Lymphocyte Medical Automated count </content>17.2 Center % L<content styleCode="Ital ics"> (24.0-44.0 %)</content> UNK 1.0-4.8 <content [facility] styleCode="Bold Ishaan ">Lymphocyte Medical Count Center </content>1.24 KCUMM<content styleCode="Ital ics"> (1.0-4.8 KCUMM)</content > UNK 0.0-0.6 <content [facility] styleCode="Bold Ishaan ">Eosinophil Medical Count Center </content>0.17 KCUMM<content styleCode="Ital ics"> (0.0-0.6 KCUMM)</content > Eosinophils 0-5.0 <content [facility] [#/volume] in styleCode="Bold [place] Blood by ">Eosinophil Medical Automated count </content>2.4 Center %<content styleCode="Ital ics"> (0-5.0 %)</content> UNK 0.2-0.9 <content [facility] styleCode="Bold Sihaan ">Monocyte Medical Count Center </content>0.69 KCUMM<content styleCode="Ital ics"> (0.2-0.9 KCUMM)</content > UNK 0 <content [facility] styleCode="Bold Ish[place] ">Nucleated Red Medical Blood Cell Center </content>0.0 /100<content styleCode="Ital ics"> (0 /100)</content> UNK 0.0-0.3 <content [facility] styleCode="Bold Ishaan ">Basophil Medical Count Center </content>0.04 KCUMM<content styleCode="Ital ics"> (0.0-0.3 KCUMM)</content > Basophils 0.0-1.0 <content [facility] [#/volume] in styleCode="Bold Ish[place] Blood by ">Basophil Medical Automated count </content>0.6 Center %<content styleCode="Ital ics"> (0.0-1.0 %)</content> UNK 0.0 <content [facility] styleCode="Bold Ish[place] ">Nucleated Red Medical Blood Cell Center Count </content>0.00 KCUMM<content styleCode="Ital ics"> (0.0 KCUMM)</content > UNK < 1 <content [facility] styleCode="Bold Ishaan ">Immature Medical Granulocyte Center Ratio </content>0.3 %<content styleCode="Ital ics"> (< 1 %)</content> UNK 0-0.1 <content [facility] styleCode="Bold Ishaan ">Immature Medical Granulocyte Center Count </content>0.02 KCUMM<content styleCode="Ital ics"> (0-0.1 KCUMM)</content > Hemoglobin 13.5-17. Below low normal <content [facility] [Mass/volume] in 5 styleCode="Bold Ish[place] Blood ">Hemoglobin Medical </content>8.8 Center G/DL L<content styleCode="Ital ics"> (13.5-17.5 G/DL)</content> Erythrocytes 4.4-5.9 Below low normal <content [facility] [#/volume] in styleCode="Bold [place] Blood by ">Red Blood Medical Automated count Cell Count Center </content>3.79 MCUMM L<content styleCode="Ital ics"> (4.4-5.9 MCUMM)</content > Leukocytes 4.4-11.0 <content [facility] [#/volume] in styleCode="Bold Ish[place] Blood by ">White Blood Medical Automated count Cell Count Center </content>7.24 KCUMM<content styleCode="Ital ics"> (4.4-11.0 KCUMM)</content > Erythrocyte mean 32.0-37. Below low normal <content [facility] corpuscular 0 styleCode="Bold Ish[place] hemoglobin ">Mean Corpus. Medical concentration Hgb Center [Mass/volume] by Concentration Automated count (MCHC) </content>30.6 G/DL L<content styleCode="Ital ics"> (32.0-37.0 G/DL)</content> Erythrocyte mean 26.0-34. Below low normal <content [facility] corpuscular 0 styleCode="Bold Ish[place] hemoglobin ">Mean Medical [Entitic mass] Corposcular Center by Automated Hemoglobin count </content>23.2 PG L<content styleCode="Ital ics"> (26.0-34.0 PG)</content> Erythrocyte mean 80.0-100 <content [facility] corpuscular .0 styleCode="Bold Ishaan volume [Entitic ">Mean Medical volume] by Corpuscular Center Automated count Volume </content>76.0 FL<content styleCode="Ital ics"> (80.0-100.0 FL)</content> Hematocrit 41.0-53. Below low normal <content [facility] [Volume 0 styleCode="Bold Ishaan Fraction] of ">Hematocrit Medical Blood by </content>28.8 Center Automated count % L<content styleCode="Ital ics"> (41.0-53.0 %)</content> UNK 1.6-7.3 <content [facility] styleCode="Bold Ishaan ">Neutrophil Medical Count Center </content>5.85 KCUMM<content styleCode="Ital ics"> (1.6-7.3 KCUMM)</content > Neutrophils 36-66 Above high <content [facility] [#/volume] in normal styleCode="Bold Ish[place] Blood by ">Neutrophil Medical Automated count </content>80.8 Center % H<content styleCode="Ital ics"> (36-66 %)</content> Platelet mean 8.0-11.0 <content [facility] volume [Entitic styleCode="Bold Ishaan volume] in Blood ">Mean Platelet Medical by Automated Volume Center count </content>9.6 FL<content styleCode="Ital ics"> (8.0-11.0 FL)</content> Platelets 130-400 <content [facility] [#/volume] in styleCode="Bold Ish[place] Blood by ">Platelet Medical Automated count Count Center </content>198 KCUMM<content styleCode="Ital ics"> (130-400 KCUMM)</content > Erythrocyte 11.5-14. Above high <content [facility] distribution 5 normal styleCode="Bold Ishaan width [Ratio] by ">Red Cell Medical Automated count Distribution Center Width </content>19.7 % H<content styleCode="Ital ics"> (11.5-14.5 %)</content> UNK 0.2-0.9 <content [facility] styleCode="Bold Ishaan ">Monocyte Medical Count Center </content>0.48 KCUMM<content styleCode="Ital ics"> (0.2-0.9 KCUMM)</content > Monocytes 3.0-10.0 <content [facility] [#/volume] in styleCode="Bold Ish[place] Blood by ">Monocyte Medical Automated count </content>6.6 Center %<content styleCode="Ital ics"> (3.0-10.0 %)</content> UNK 1.0-4.8 Below low normal <content [facility] styleCode="Bold Ishaan ">Lymphocyte Medical Count Center </content>0.68 KCUMM L<content styleCode="Ital ics"> (1.0-4.8 KCUMM)</content > Lymphocytes 24.0-44. Below low normal <content [facility] [#/volume] in 0 styleCode="Bold Ishaan Blood by ">Lymphocyte Medical Automated count </content>9.4 % Center L<content styleCode="Ital ics"> (24.0-44.0 %)</content> UNK 0.0-0.3 <content [facility] styleCode="Bold Ishaan ">Basophil Medical Count Center </content>0.03 KCUMM<content styleCode="Ital ics"> (0.0-0.3 KCUMM)</content > Basophils 0.0-1.0 <content [facility] [#/volume] in styleCode="Bold Ish[place] Blood by ">Basophil Medical Automated count </content>0.4 Center %<content styleCode="Ital ics"> (0.0-1.0 %)</content> UNK 0.0-0.6 <content [facility] styleCode="Bold Ishaan ">Eosinophil Medical Count Center </content>0.16 KCUMM<content styleCode="Ital ics"> (0.0-0.6 KCUMM)</content > Eosinophils 0-5.0 <content [facility] [#/volume] in styleCode="Bold Ish[place] Blood by ">Eosinophil Medical Automated count </content>2.2 Center %<content styleCode="Ital ics"> (0-5.0 %)</content> UNK < 1 <content [facility] styleCode="Bold Ishaan ">Immature Medical Granulocyte Center Ratio </content>0.6 %<content styleCode="Ital ics"> (< 1 %)</content> UNK 0-0.1 <content [facility] styleCode="Bold Ishaan ">Immature Medical Granulocyte Center Count </content>0.04 KCUMM<content styleCode="Ital ics"> (0-0.1 KCUMM)</content > UNK 0.0 <content [facility] styleCode="Bold Ishaan ">Nucleated Red Medical Blood Cell Center Count </content>0.00 KCUMM<content styleCode="Ital ics"> (0.0 KCUMM)</content > UNK 0 <content [facility] styleCode="Bold Ishaan ">Nucleated Red Medical Blood Cell Center </content>0.0 /100<content styleCode="Ital ics"> (0 /100)</content> Hemoglobin 13.5-17. Below low normal <content [facility] [Mass/volume] in 5 styleCode="Bold Ishaan Blood ">Hemoglobin Medical </content>9.0 Center G/DL L<content styleCode="Ital ics"> (13.5-17.5 G/DL)</content> Erythrocytes 4.4-5.9 Below low normal <content [facility] [#/volume] in styleCode="Bold Ish[place] Blood by ">Red Blood Medical Automated count Cell Count Center </content>3.89 MCUMM L<content styleCode="Ital ics"> (4.4-5.9 MCUMM)</content > Leukocytes 4.4-11.0 <content [facility] [#/volume] in styleCode="Bold Ish[place] Blood by ">White Blood Medical Automated count Cell Count Center </content>6.02 KCUMM<content styleCode="Ital ics"> (4.4-11.0 KCUMM)</content > Erythrocyte mean 32.0-37. Below low normal <content [facility] corpuscular 0 styleCode="Bold Ishaan hemoglobin ">Mean Corpus. Medical concentration Hgb Center [Mass/volume] by Concentration Automated count (MCHC) </content>30.0 G/DL L<content styleCode="Ital ics"> (32.0-37.0 G/DL)</content> Erythrocyte mean 26.0-34. Below low normal <content [facility] corpuscular 0 styleCode="Bold Ishaan hemoglobin ">Mean Medical [Entitic mass] Corposcular Center by Automated Hemoglobin count </content>23.1 PG L<content styleCode="Ital ics"> (26.0-34.0 PG)</content> Erythrocyte mean 80.0-100 <content [facility] corpuscular .0 styleCode="Bold Ishaan volume [Entitic ">Mean Medical volume] by Corpuscular Center Automated count Volume </content>77.1 FL<content styleCode="Ital ics"> (80.0-100.0 FL)</content> Hematocrit 41.0-53. Below low normal <content [facility] [Volume 0 styleCode="Bold Ishaan Fraction] of ">Hematocrit Medical Blood by </content>30.0 Center Automated count % L<content styleCode="Ital ics"> (41.0-53.0 %)</content> UNK 0 <content [facility] styleCode="Bold Sihaan ">Nucleated Red Medical Blood Cell Center </content>0.0 /100<content styleCode="Ital ics"> (0 /100)</content> Platelet mean 8.0-11.0 <content [facility] volume [Entitic styleCode="Bold Ishaan volume] in Blood ">Mean Platelet Medical by Automated Volume Center count </content>10.1 FL<content styleCode="Ital ics"> (8.0-11.0 FL)</content> Platelets 130-400 <content [facility] [#/volume] in styleCode="Bold Ihsaan Blood by ">Platelet Medical Automated count Count Center </content>265 KCUMM<content styleCode="Ital ics"> (130-400 KCUMM)</content > Erythrocyte 11.5-14. Above high <content [facility] distribution 5 normal styleCode="Bold Ishaan width [Ratio] by ">Red Cell Medical Automated count Distribution Center Width </content>19.4 % H<content styleCode="Ital ics"> (11.5-14.5 %)</content> UNK 0.0 <content [facility] styleCode="Bold Ishaan ">Nucleated Red Medical Blood Cell Center Count </content>0.00 KCUMM<content styleCode="Ital ics"> (0.0 KCUMM)</content > Leukocytes 4.4-11.0 <content [facility] [#/volume] in styleCode="Bold Ishaan Blood by ">White Blood Medical Automated count Cell Count Center </content>6.14 KCUMM<content styleCode="Ital ics"> (4.4-11.0 KCUMM)</content > Erythrocyte mean 26.0-34. Below low normal <content [facility] corpuscular 0 styleCode="Bold Ishaan hemoglobin ">Mean Medical [Entitic mass] Corposcular Center by Automated Hemoglobin count </content>23.5 PG L<content styleCode="Ital ics"> (26.0-34.0 PG)</content> Erythrocyte mean 80.0-100 <content [facility] corpuscular .0 styleCode="Bold Ishaan volume [Entitic ">Mean Medical volume] by Corpuscular Center Automated count Volume </content>78.3 FL<content styleCode="Ital ics"> (80.0-100.0 FL)</content> Hematocrit 41.0-53. Below low normal <content [facility] [Volume 0 styleCode="Bold Ishaan Fraction] of ">Hematocrit Medical Blood by </content>29.6 Center Automated count % L<content styleCode="Ital ics"> (41.0-53.0 %)</content> Hemoglobin 13.5-17. Below low normal <content [facility] [Mass/volume] in 5 styleCode="Bold Ishaan Blood ">Hemoglobin Medical </content>8.9 Center G/DL L<content styleCode="Ital ics"> (13.5-17.5 G/DL)</content> Erythrocytes 4.4-5.9 Below low normal <content [facility] [#/volume] in styleCode="Bold Ish[place] Blood by ">Red Blood Medical Automated count Cell Count Center </content>3.78 MCUMM L<content styleCode="Ital ics"> (4.4-5.9 MCUMM)</content > Platelet mean 8.0-11.0 <content [facility] volume [Entitic styleCode="Bold Ishaan volume] in Blood ">Mean Platelet Medical by Automated Volume Center count </content>9.4 FL<content styleCode="Ital ics"> (8.0-11.0 FL)</content> Platelets 130-400 <content Saint [#/volume] in styleCode="Bold Ish[place] Blood by ">Platelet Medical Automated count Count Center </content>374 KCUMM<content styleCode="Ital ics"> (130-400 KCUMM)</content > Erythrocyte 11.5-14. Above high <content [facility] distribution 5 normal styleCode="Bold Ishaan width [Ratio] by ">Red Cell Medical Automated count Distribution Center Width </content>19.6 % H<content styleCode="Ital ics"> (11.5-14.5 %)</content> Erythrocyte mean 32.0-37. Below low normal <content [facility] corpuscular 0 styleCode="Bold Ishaan hemoglobin ">Mean Corpus. Medical concentration Hgb Center [Mass/volume] by Concentration Automated count (MCHC) </content>30.1 G/DL L<content styleCode="Ital ics"> (32.0-37.0 G/DL)</content> UNK 0.0 <content [facility] styleCode="Bold Ishaan ">Nucleated Red Medical Blood Cell Center Count </content>0.00 KCUMM<content styleCode="Ital ics"> (0.0 KCUMM)</content > UNK 0 <content [facility] styleCode="Bold Ishaan ">Nucleated Red Medical Blood Cell Center </content>0.0 /100<content styleCode="Ital ics"> (0 /100)</content> Erythrocytes 4.4-5.9 Below low normal <content [facility] [#/volume] in styleCode="Bold Ish[place] Blood by ">Red Blood Medical Automated count Cell Count Center </content>3.83 MCUMM L<content styleCode="Ital ics"> (4.4-5.9 MCUMM)</content > Leukocytes 4.4-11.0 <content [facility] [#/volume] in styleCode="Bold Ishaan Blood by ">White Blood Medical Automated count Cell Count Center </content>8.02 KCUMM<content styleCode="Ital ics"> (4.4-11.0 KCUMM)</content > Hematocrit 41.0-53. Below low normal <content [facility] [Volume 0 styleCode="Bold Ishaan Fraction] of ">Hematocrit Medical Blood by </content>30.4 Center Automated count % L<content styleCode="Ital ics"> (41.0-53.0 %)</content> Hemoglobin 13.5-17. Below low normal <content [facility] [Mass/volume] in 5 styleCode="Bold Ishaan Blood ">Hemoglobin Medical </content>9.3 Center G/DL L<content styleCode="Ital ics"> (13.5-17.5 G/DL)</content> Erythrocyte 11.5-14. Above high <content [facility] distribution 5 normal styleCode="Bold Ishaan width [Ratio] by ">Red Cell Medical Automated count Distribution Center Width </content>20.8 % H<content styleCode="Ital ics"> (11.5-14.5 %)</content> Erythrocyte mean 32.0-37. Below low normal <content [facility] corpuscular 0 styleCode="Bold Ishaan hemoglobin ">Mean Corpus. Medical concentration Hgb Center [Mass/volume] by Concentration Automated count (MCHC) </content>30.6 G/DL L<content styleCode="Ital ics"> (32.0-37.0 G/DL)</content> Erythrocyte mean 26.0-34. Below low normal <content [facility] corpuscular 0 styleCode="Bold Ishaan hemoglobin ">Mean Medical [Entitic mass] Corposcular Center by Automated Hemoglobin count </content>24.3 PG L<content styleCode="Ital ics"> (26.0-34.0 PG)</content> Erythrocyte mean 80.0-100 Below low normal <content [facility] corpuscular .0 styleCode="Bold Ishaan volume [Entitic ">Mean Medical volume] by Corpuscular Center Automated count Volume </content>79.4 FL L<content styleCode="Ital ics"> (80.0-100.0 FL)</content> UNK 0.0 <content [facility] styleCode="Bold Ishaan ">Nucleated Red Medical Blood Cell Center Count </content>0.00 KCUMM<content styleCode="Ital ics"> (0.0 KCUMM)</content > UNK 0 <content [facility] styleCode="Bold Ishaan ">Nucleated Red Medical Blood Cell Center </content>0.0 /100<content styleCode="Ital ics"> (0 /100)</content> Platelet mean 8.0-11.0 <content [facility] volume [Entitic styleCode="Bold Ishaan volume] in Blood ">Mean Platelet Medical by Automated Volume Center count </content>9.4 FL<content styleCode="Ital ics"> (8.0-11.0 FL)</content> Platelets 130-400 Above high <content [facility] [#/volume] in normal styleCode="Bold Ishaan Blood by ">Platelet Medical Automated count Count Center </content>413 KCUMM H<content styleCode="Ital ics"> (130-400 KCUMM)</content > Leukocytes 4.4-11.0 <content [facility] [#/volume] in styleCode="Bold Ishaan Blood by ">White Blood Medical Automated count Cell Count Center </content>8.12 KCUMM<content styleCode="Ital ics"> (4.4-11.0 KCUMM)</content > Hemoglobin 13.5-17. Below low normal <content [facility] [Mass/volume] in 5 styleCode="Bold Ishaan Blood ">Hemoglobin Medical </content>8.5 Center G/DL L<content styleCode="Ital ics"> (13.5-17.5 G/DL)</content> Erythrocytes 4.4-5.9 Below low normal <content [facility] [#/volume] in styleCode="Bold Ishaan Blood by ">Red Blood Medical Automated count Cell Count Center </content>3.42 MCUMM L<content styleCode="Ital ics"> (4.4-5.9 MCUMM)</content > Erythrocyte mean 26.0-34. Below low normal <content [facility] corpuscular 0 styleCode="Bold Ishaan hemoglobin ">Mean Medical [Entitic mass] Corposcular Center by Automated Hemoglobin count </content>24.9 PG L<content styleCode="Ital ics"> (26.0-34.0 PG)</content> Erythrocyte mean 80.0-100 <content [facility] corpuscular .0 styleCode="Bold Ishaan volume [Entitic ">Mean Medical volume] by Corpuscular Center Automated count Volume </content>82.2 FL<content styleCode="Ital ics"> (80.0-100.0 FL)</content> Hematocrit 41.0-53. Below low normal <content [facility] [Volume 0 styleCode="Bold Ishaan Fraction] of ">Hematocrit Medical Blood by </content>28.1 Center Automated count % L<content styleCode="Ital ics"> (41.0-53.0 %)</content> Platelets 130-400 <content [facility] [#/volume] in styleCode="Bold Ishaan Blood by ">Platelet Medical Automated count Count Center </content>254 KCUMM<content styleCode="Ital ics"> (130-400 KCUMM)</content > Erythrocyte 11.5-14. Above high <content [facility] distribution 5 normal styleCode="Bold Ishaan width [Ratio] by ">Red Cell Medical Automated count Distribution Center Width </content>21.3 % H<content styleCode="Ital ics"> (11.5-14.5 %)</content> Erythrocyte mean 32.0-37. Below low normal <content [facility] corpuscular 0 styleCode="Bold Ishaan hemoglobin ">Mean Corpus. Medical concentration Hgb Center [Mass/volume] by Concentration Automated count (MCHC) </content>30.2 G/DL L<content styleCode="Ital ics"> (32.0-37.0 G/DL)</content> UNK 0.0 <content [facility] styleCode="Bold Ishaan ">Nucleated Red Medical Blood Cell Center Count </content>0.00 KCUMM<content styleCode="Ital ics"> (0.0 KCUMM)</content > UNK 0 <content [facility] styleCode="Bold Ishaan ">Nucleated Red Medical Blood Cell Center </content>0.0 /100<content styleCode="Ital ics"> (0 /100)</content> Platelet mean 8.0-11.0 <content [facility] volume [Entitic styleCode="Bold Ishaan volume] in Blood ">Mean Platelet Medical by Automated Volume Center count </content>9.9 FL<content styleCode="Ital ics"> (8.0-11.0 FL)</content> Leukocytes 4.4-11.0 <content [facility] [#/volume] in styleCode="Bold Ishaan Blood by ">White Blood Medical Automated count Cell Count Center </content>5.97 KCUMM<content styleCode="Ital ics"> (4.4-11.0 KCUMM)</content > Erythrocyte mean 26.0-34. Below low normal <content [facility] corpuscular 0 styleCode="Bold Ishaan hemoglobin ">Mean Medical [Entitic mass] Corposcular Center by Automated Hemoglobin count </content>25.4 PG L<content styleCode="Ital ics"> (26.0-34.0 PG)</content> Erythrocyte mean 80.0-100 <content [facility] corpuscular .0 styleCode="Bold Ishaan volume [Entitic ">Mean Medical volume] by Corpuscular Center Automated count Volume </content>81.8 FL<content styleCode="Ital ics"> (80.0-100.0 FL)</content> Hematocrit 41.0-53. Below low normal <content [facility] [Volume 0 styleCode="Bold Ishaan Fraction] of ">Hematocrit Medical Blood by </content>27.4 Center Automated count % L<content styleCode="Ital ics"> (41.0-53.0 %)</content> Hemoglobin 13.5-17. Below low normal <content [facility] [Mass/volume] in 5 styleCode="Bold Ishaan Blood ">Hemoglobin Medical </content>8.5 Center G/DL L<content styleCode="Ital ics"> (13.5-17.5 G/DL)</content> Erythrocytes 4.4-5.9 Below low normal <content [facility] [#/volume] in styleCode="Bold Ish[place] Blood by ">Red Blood Medical Automated count Cell Count Center </content>3.35 MCUMM L<content styleCode="Ital ics"> (4.4-5.9 MCUMM)</content > Platelet mean 8.0-11.0 <content [facility] volume [Entitic styleCode="[facility] [place] volume] in Blood ">Mean Platelet Medical by Automated Volume Center count </content>10.7 FL<content styleCode="Ital ics"> (8.0-11.0 FL)</content> Platelets 130-400 <content [facility] [#/volume] in styleCode="[place] [place] Blood by ">Platelet Medical Automated count Count Center </content>139 KCUMM<content styleCode="Ital ics"> (130-400 KCUMM)</content > Erythrocyte 11.5-14. Above high <content [facility] distribution 5 normal styleCode="[place] [place] width [Ratio] by ">Red Cell Medical Automated count Distribution Center Width </content>19.1 % H<content styleCode="Ital ics"> (11.5-14.5 %)</content> Erythrocyte mean 32.0-37. Below low normal <content [facility] corpuscular 0 styleCode="[place] [place] hemoglobin ">Mean Corpus. Medical concentration Hgb Center [Mass/volume] by Concentration Automated count (MCHC) </content>31.0 G/DL L<content styleCode="Ital ics"> (32.0-37.0 G/DL)</content> UNK 1.0-4.8 <content [facility] styleCode="[facility] ">Lymphocyte Medical Count Center </content>1.02 KCUMM<content styleCode="Ital ics"> (1.0-4.8 KCUMM)</content > Lymphocytes 24.0-44. Below low normal <content [facility] [#/volume] in 0 styleCode="[place] [place] Blood by ">Lymphocyte Medical Automated count </content>17.1 Center % L<content styleCode="Ital ics"> (24.0-44.0 %)</content> UNK 1.6-7.3 <content [facility] styleCode="[facility] [place] ">Neutrophil Medical Count Center </content>4.27 KCUMM<content styleCode="Ital ics"> (1.6-7.3 KCUMM)</content > Neutrophils 36-66 Above high <content [facility] [#/volume] in normal styleCode="[place] [place] Blood by ">Neutrophil Medical Automated count </content>71.6 Center % H<content styleCode="Ital ics"> (36-66 %)</content> UNK 0.0-0.6 <content [facility] styleCode="[facility] [place] ">Eosinophil Medical Count Center </content>0.30 KCUMM<content styleCode="Ital ics"> (0.0-0.6 KCUMM)</content > Eosinophils 0-5.0 <content [facility] [#/volume] in styleCode="[place] Blood by ">Eosinophil Medical Automated count </content>5.0 Center %<content styleCode="Ital ics"> (0-5.0 %)</content> UNK 0.2-0.9 <content [facility] styleCode="[facility] [place] ">Monocyte Medical Count Center </content>0.31 KCUMM<content styleCode="Ital ics"> (0.2-0.9 KCUMM)</content > Monocytes 3.0-10.0 <content [facility] [#/volume] in styleCode="[place] Blood by ">Monocyte Medical Automated count </content>5.2 Center %<content styleCode="Ital ics"> (3.0-10.0 %)</content> UNK 0 <content [facility] styleCode="[facility] [place] ">Nucleated Red Medical Blood Cell Center </content>0.0 /100<content styleCode="Ital ics"> (0 /100)</content> UNK 0.0-0.3 <content [facility] styleCode="[facility] [place] ">Basophil Medical Count Center </content>0.05 KCUMM<content styleCode="Ital ics"> (0.0-0.3 KCUMM)</content > Basophils 0.0-1.0 <content [facility] [#/volume] in styleCode="[place] Blood by ">Basophil Medical Automated count </content>0.8 Center %<content styleCode="Ital ics"> (0.0-1.0 %)</content> UNK NORMAL <content [facility] styleCode="[facility] [place] ">Platelet Medical Estimate Center </content>PLT. SLIGHTLY DECREASED <content styleCode="Ital ics"> (NORMAL )</content> UNK < 1 <content [facility] styleCode="[facility] [place] ">Immature Medical Granulocyte Center Ratio </content>0.3 %<content styleCode="Ital ics"> (< 1 %)</content> UNK 0-0.1 <content [facility] styleCode="[facility] [place] ">Immature Medical Granulocyte Center Count </content>0.02 KCUMM<content styleCode="Ital ics"> (0-0.1 KCUMM)</content > UNK 0.0 <content [facility] styleCode="[facility] [place] ">Nucleated Red Medical Blood Cell Center Count </content>0.00 KCUMM<content styleCode="Ital ics"> (0.0 KCUMM)</content > UNK NORMAL <content [facility] styleCode="[facility] [place] ">Target Cell Medical </content>[facility] Center T <content styleCode="Ital ics"> (NORMAL )</content> UNK NORMAL <content Saint styleCode="[facility] [place] ">Spherocyte Medical </content>[facility] T <content styleCode="Ital ics"> (NORMAL )</content> UNK NORMAL <content Saint styleCode="[place] [place] ">Polychromasia Medical </content>[facility] ATE <content styleCode="Ital ics"> (NORMAL )</content> UNK NORMAL <content Saint styleCode="[place] [place] ">Poikilocyte Medical </content>[facility] T <content styleCode="Ital ics"> (NORMAL )</content> UNK NORMAL <content Saint styleCode="[place] [place] ">Macrocyte Medical </content>[facility] T <content styleCode="Ital ics"> (NORMAL )</content> UNK NORMAL <content [facility] styleCode="[place] [place] ">Hypochromia Medical </content>[facility] T <content styleCode="Ital ics"> (NORMAL )</content> UNK NORMAL <content [facility] styleCode="[facility] [place] ">Anisocyte Medical </content>[facility] T <content styleCode="Ital ics"> (NORMAL )</content> UNK NORMAL <content [facility] styleCode="[facility] [place] ">RBC Medical Morphology Center </content>ABNOR MAL <content styleCode="Ital ics"> (NORMAL )</content> UNK NORMAL <content [facility] styleCode="[facility] [place] ">Microcyte Medical </content>[facility] Center T <content styleCode="Ital ics"> (NORMAL )</content> Hemoglobin 13.5-17. Below low normal <content [facility] [Mass/volume] in 5 styleCode="[place] Blood ">Hemoglobin Medical </content>7.9 Center G/DL L<content styleCode="Ital ics"> (13.5-17.5 G/DL)</content> Erythrocytes 4.4-5.9 Below low normal <content [facility] [#/volume] in styleCode="[place] Blood by ">Red Blood Medical Automated count Cell Count Center </content>3.21 MCUMM L<content styleCode="Ital ics"> (4.4-5.9 MCUMM)</content > Leukocytes 4.4-11.0 Below low normal <content [facility] [#/volume] in styleCode="[place] Blood by ">White Blood Medical Automated count Cell Count Center </content>4.23 KCUMM L<content styleCode="Ital ics"> (4.4-11.0 KCUMM)</content > Erythrocyte 11.5-14. Above high <content [facility] distribution 5 normal styleCode="[place] width [Ratio] by ">Red Cell Medical Automated count Distribution Center Width </content>19.4 % H<content styleCode="Ital ics"> (11.5-14.5 %)</content> Erythrocyte mean 32.0-37. Below low normal <content [facility] corpuscular 0 styleCode="[place] hemoglobin ">Mean Corpus. Medical concentration Hgb Center [Mass/volume] by Concentration Automated count (MCHC) </content>31.1 G/DL L<content styleCode="Ital ics"> (32.0-37.0 G/DL)</content> Erythrocyte mean 26.0-34. Below low normal <content [facility] corpuscular 0 styleCode="[place] [place] hemoglobin ">Mean Medical [Entitic mass] Corposcular Center by Automated Hemoglobin count </content>24.6 PG L<content styleCode="Ital ics"> (26.0-34.0 PG)</content> Erythrocyte mean 80.0-100 Below low normal <content [facility] corpuscular .0 styleCode="[place] [place] volume [Entitic ">Mean Medical volume] by Corpuscular Center Automated count Volume </content>79.1 FL L<content styleCode="Ital ics"> (80.0-100.0 FL)</content> Hematocrit 41.0-53. Below low normal <content [facility] [Volume 0 styleCode="[place] [place] Fraction] of ">Hematocrit Medical Blood by </content>25.4 Center Automated count % L<content styleCode="Ital ics"> (41.0-53.0 %)</content> UNK 0.0 <content [facility] styleCode="[facility] [place] ">Nucleated Red Medical Blood Cell Center Count </content>0.00 KCUMM<content styleCode="Ital ics"> (0.0 KCUMM)</content > UNK 0 <content [facility] styleCode="[place] [place] ">Nucleated Red Medical Blood Cell Center </content>0.0 /100<content styleCode="Ital ics"> (0 /100)</content> Platelet mean 8.0-11.0 <content [facility] volume [Entitic styleCode="[place] volume] in Blood ">Mean Platelet Medical by Automated Volume Center count </content>10.1 FL<content styleCode="Ital ics"> (8.0-11.0 FL)</content> Platelets 130-400 <content [facility] [#/volume] in styleCode="[place] Blood by ">Platelet Medical Automated count Count Center </content>165 KCUMM<content styleCode="Ital ics"> (130-400 KCUMM)</content > Erythrocytes 4.4-5.9 Below low normal <content [facility] [#/volume] in styleCode="[place] Blood by ">Red Blood Medical Automated count Cell Count Center </content>3.72 MCUMM L<content styleCode="Ital ics"> (4.4-5.9 MCUMM)</content > Leukocytes 4.4-11.0 <content [facility] [#/volume] in styleCode="[place] Blood by ">White Blood Medical Automated count Cell Count Center </content>6.86 KCUMM<content styleCode="Ital ics"> (4.4-11.0 KCUMM)</content > Erythrocyte mean 80.0-100 <content [facility] corpuscular .0 styleCode="[place] volume [Entitic ">Mean Medical volume] by Corpuscular Center Automated count Volume </content>86.8 FL<content styleCode="Ital ics"> (80.0-100.0 FL)</content> Hematocrit 41.0-53. Below low normal <content [facility] [Volume 0 styleCode="[place] Fraction] of ">Hematocrit Medical Blood by </content>32.3 Center Automated count % L<content styleCode="Ital ics"> (41.0-53.0 %)</content> Hemoglobin 13.5-17. Below low normal <content [facility] [Mass/volume] in 5 styleCode="[place] Blood ">Hemoglobin Medical </content>10.1 Center G/DL L<content styleCode="Ital ics"> (13.5-17.5 G/DL)</content> Platelet mean 8.0-11.0 <content [facility] volume [Entitic styleCode="[place] volume] in Blood ">Mean Platelet Medical by Automated Volume Center count </content>9.0 FL<content styleCode="Ital ics"> (8.0-11.0 FL)</content> Platelets 130-400 <content [facility] [#/volume] in styleCode="[place] Blood by ">Platelet Medical Automated count Count Center </content>278 KCUMM<content styleCode="Ital ics"> (130-400 KCUMM)</content > Erythrocyte 11.5-14. Above high <content [facility] distribution 5 normal styleCode="[place] width [Ratio] by ">Red Cell Medical Automated count Distribution Center Width </content>20.7 % H<content styleCode="Ital ics"> (11.5-14.5 %)</content> Erythrocyte mean 32.0-37. Below low normal <content [facility] corpuscular 0 styleCode="[place] hemoglobin ">Mean Corpus. Medical concentration Hgb Center [Mass/volume] by Concentration Automated count (MCHC) </content>31.3 G/DL L<content styleCode="Ital ics"> (32.0-37.0 G/DL)</content> Erythrocyte mean 26.0-34. <content [facility] corpuscular 0 styleCode="[place] hemoglobin ">Mean Medical [Entitic mass] Corposcular Center by Automated Hemoglobin count </content>27.2 PG<content styleCode="Ital ics"> (26.0-34.0 PG)</content> Lymphocytes 24.0-44. Below low normal <content [facility] [#/volume] in 0 styleCode="[place] Blood by ">Lymphocyte Medical Automated count </content>21.3 Center % L<content styleCode="Ital ics"> (24.0-44.0 %)</content> UNK 1.6-7.3 <content [facility] styleCode="[place] [place] ">Neutrophil Medical Count Center </content>4.67 KCUMM<content styleCode="Ital ics"> (1.6-7.3 KCUMM)</content > Neutrophils 36-66 Above high <content [facility] [#/volume] in normal styleCode="[place] Blood by ">Neutrophil Medical Automated count </content>68.1 Center % H<content styleCode="Ital ics"> (36-66 %)</content> UNK 0.0-0.6 <content [facility] styleCode="[place] [place] ">Eosinophil Medical Count Center </content>0.21 KCUMM<content styleCode="Ital ics"> (0.0-0.6 KCUMM)</content > Eosinophils 0-5.0 <content [facility] [#/volume] in styleCode="[place] Blood by ">Eosinophil Medical Automated count </content>3.1 Center %<content styleCode="Ital ics"> (0-5.0 %)</content> UNK 0.2-0.9 <content [facility] styleCode="[place] [place] ">Monocyte Medical Count Center </content>0.46 KCUMM<content styleCode="Ital ics"> (0.2-0.9 KCUMM)</content > Monocytes 3.0-10.0 <content [facility] [#/volume] in styleCode="[place] Blood by ">Monocyte Medical Automated count </content>6.7 Center %<content styleCode="Ital ics"> (3.0-10.0 %)</content> UNK 1.0-4.8 <content [facility] styleCode="[facility] [place] ">Lymphocyte Medical Count Center </content>1.46 KCUMM<content styleCode="Ital ics"> (1.0-4.8 KCUMM)</content > UNK 0.0 <content [facility] styleCode="[place] [place] ">Nucleated Red Medical Blood Cell Center Count </content>0.00 KCUMM<content styleCode="Ital ics"> (0.0 KCUMM)</content > UNK 0 <content [facility] styleCode="[place] ">Nucleated Red Medical Blood Cell Center </content>0.0 /100<content styleCode="Ital ics"> (0 /100)</content> UNK 0.0-0.3 <content [facility] styleCode="[place] [place] ">Basophil Medical Count Center </content>0.05 KCUMM<content styleCode="Ital ics"> (0.0-0.3 KCUMM)</content > Basophils 0.0-1.0 <content [facility] [#/volume] in styleCode="[place] Blood by ">Basophil Medical Automated count </content>0.7 Center %<content styleCode="Ital ics"> (0.0-1.0 %)</content> UNK < 1 <content [facility] styleCode="[facility] [place] ">Immature Medical Granulocyte Center Ratio </content>0.1 %<content styleCode="Ital ics"> (< 1 %)</content> UNK 0-0.1 <content [facility] styleCode="[facility] [place] ">Immature Medical Granulocyte Center Count </content>0.01 KCUMM<content styleCode="Ital ics"> (0-0.1 KCUMM)</content > Erythrocytes 4.4-5.9 Below low normal <content [facility] [#/volume] in styleCode="[place] Blood by ">Red Blood Medical Automated count Cell Count Center </content>3.73 MCUMM L<content styleCode="Ital ics"> (4.4-5.9 MCUMM)</content > Leukocytes 4.4-11.0 Below low normal <content [facility] [#/volume] in styleCode="[place] Blood by ">White Blood Medical Automated count Cell Count Center </content>4.17 KCUMM L<content styleCode="Ital ics"> (4.4-11.0 KCUMM)</content > Erythrocyte mean 80.0-100 <content [facility] corpuscular .0 styleCode="[place] volume [Entitic ">Mean Medical volume] by Corpuscular Center Automated count Volume </content>86.6 FL<content styleCode="Ital ics"> (80.0-100.0 FL)</content> Hematocrit 41.0-53. Below low normal <content [facility] [Volume 0 styleCode="[place] [place] Fraction] of ">Hematocrit Medical Blood by </content>32.3 Center Automated count % L<content styleCode="Ital ics"> (41.0-53.0 %)</content> Hemoglobin 13.5-17. Below low normal <content [facility] [Mass/volume] in 5 styleCode="[place] Blood ">Hemoglobin Medical </content>9.9 Center G/DL L<content styleCode="Ital ics"> (13.5-17.5 G/DL)</content> Erythrocyte 11.5-14. Above high <content [facility] distribution 5 normal styleCode="[place] width [Ratio] by ">Red Cell Medical Automated count Distribution Center Width </content>20.0 % H<content styleCode="Ital ics"> (11.5-14.5 %)</content> Erythrocyte mean 32.0-37. Below low normal <content [facility] corpuscular 0 styleCode="[place] hemoglobin ">Mean Corpus. Medical concentration Hgb Center [Mass/volume] by Concentration Automated count (MCHC) </content>30.7 G/DL L<content styleCode="Ital ics"> (32.0-37.0 G/DL)</content> Erythrocyte mean 26.0-34. <content [facility] corpuscular 0 styleCode="[place] hemoglobin ">Mean Medical [Entitic mass] Corposcular Center by Automated Hemoglobin count </content>26.5 PG<content styleCode="Ital ics"> (26.0-34.0 PG)</content> Neutrophils 36-66 Above high <content [facility] [#/volume] in normal styleCode="[place] Blood by ">Neutrophil Medical Automated count </content>77.7 Center % H<content styleCode="Ital ics"> (36-66 %)</content> Platelet mean 8.0-11.0 <content [facility] volume [Entitic styleCode="[place] volume] in Blood ">Mean Platelet Medical by Automated Volume Center count </content>9.1 FL<content styleCode="Ital ics"> (8.0-11.0 FL)</content> Platelets 130-400 Below low normal <content [facility] [#/volume] in styleCode="[place] Blood by ">Platelet Medical Automated count Count Center </content>129 KCUMM L<content styleCode="Ital ics"> (130-400 KCUMM)</content > UNK 1.0-4.8 Below low normal <content [facility] styleCode="[place] [place] ">Lymphocyte Medical Count Center </content>0.58 KCUMM L<content styleCode="Ital ics"> (1.0-4.8 KCUMM)</content > Lymphocytes 24.0-44. Below low normal <content [facility] [#/volume] in 0 styleCode="[place] Blood by ">Lymphocyte Medical Automated count </content>13.9 Center % L<content styleCode="Ital ics"> (24.0-44.0 %)</content> UNK 1.6-7.3 <content [facility] styleCode="[facility] [place] ">Neutrophil Medical Count Center </content>3.24 KCUMM<content styleCode="Ital ics"> (1.6-7.3 KCUMM)</content > Eosinophils 0-5.0 <content [facility] [#/volume] in styleCode="[place] Blood by ">Eosinophil Medical Automated count </content>2.4 Center %<content styleCode="Ital ics"> (0-5.0 %)</content> UNK 0.2-0.9 <content [facility] styleCode="[place] [place] ">Monocyte Medical Count Center </content>0.22 KCUMM<content styleCode="Ital ics"> (0.2-0.9 KCUMM)</content > Monocytes 3.0-10.0 <content [facility] [#/volume] in styleCode="[place] Blood by ">Monocyte Medical Automated count </content>5.3 Center %<content styleCode="Ital ics"> (3.0-10.0 %)</content> UNK 0.0-0.3 <content [facility] styleCode="[place] [place] ">Basophil Medical Count Center </content>0.02 KCUMM<content styleCode="Ital ics"> (0.0-0.3 KCUMM)</content > Basophils 0.0-1.0 <content [facility] [#/volume] in styleCode="[place] Blood by ">Basophil Medical Automated count </content>0.5 Center %<content styleCode="Ital ics"> (0.0-1.0 %)</content> UNK 0.0-0.6 <content [facility] styleCode="[facility] [place] ">Eosinophil Medical Count Center </content>0.10 KCUMM<content styleCode="Ital ics"> (0.0-0.6 KCUMM)</content > UNK 0-0.1 <content [facility] styleCode="[facility] [place] ">Immature Medical Granulocyte Center Count </content>0.01 KCUMM<content styleCode="Ital ics"> (0-0.1 KCUMM)</content > UNK 0.0 <content [facility] styleCode="[place] [place] ">Nucleated Red Medical Blood Cell Center Count </content>0.00 KCUMM<content styleCode="Ital ics"> (0.0 KCUMM)</content > UNK 0 <content [facility] styleCode="[facility] [place] ">Nucleated Red Medical Blood Cell Center </content>0.0 /100<content styleCode="Ital ics"> (0 /100)</content> UNK < 1 <content [facility] styleCode="[facility] [place] ">Immature Medical Granulocyte Center Ratio </content>0.2 %<content styleCode="Ital ics"> (< 1 %)</content> Leukocytes 4.4-11.0 <content [facility] [#/volume] in styleCode="[place] Blood by ">White Blood Medical Automated count Cell Count Center </content>5.76 KCUMM<content styleCode="Ital ics"> (4.4-11.0 KCUMM)</content > Erythrocytes 4.4-5.9 Below low normal <content [facility] [#/volume] in styleCode="[place] Blood by ">Red Blood Medical Automated count Cell Count Center </content>4.05 MCUMM L<content styleCode="Ital ics"> (4.4-5.9 MCUMM)</content > Erythrocyte mean 26.0-34. <content [facility] corpuscular 0 styleCode="[place] hemoglobin ">Mean Medical [Entitic mass] Corposcular Center by Automated Hemoglobin count </content>26.9 PG<content styleCode="Ital ics"> (26.0-34.0 PG)</content> Erythrocyte mean 80.0-100 <content [facility] corpuscular .0 styleCode="[place] volume [Entitic ">Mean Medical volume] by Corpuscular Center Automated count Volume </content>83.7 FL<content styleCode="Ital ics"> (80.0-100.0 FL)</content> Hematocrit 41.0-53. Below low normal <content [facility] [Volume 0 styleCode="[place] Fraction] of ">Hematocrit Medical Blood by </content>33.9 Center Automated count % L<content styleCode="Ital ics"> (41.0-53.0 %)</content> Hemoglobin 13.5-17. Below low normal <content [facility] [Mass/volume] in 5 styleCode="[place] Blood ">Hemoglobin Medical </content>10.9 Center G/DL L<content styleCode="Ital ics"> (13.5-17.5 G/DL)</content> Platelets 130-400 <content Saint [#/volume] in styleCode="[place] Blood by ">Platelet Medical Automated count Count Center </content>146 KCUMM<content styleCode="Ital ics"> (130-400 KCUMM)</content > Erythrocyte 11.5-14. Above high <content [facility] distribution 5 normal styleCode="[place] width [Ratio] by ">Red Cell Medical Automated count Distribution Center Width </content>19.4 % H<content styleCode="Ital ics"> (11.5-14.5 %)</content> Erythrocyte mean 32.0-37. <content [facility] corpuscular 0 styleCode="[place] hemoglobin ">Mean Corpus. Medical concentration Hgb Center [Mass/volume] by Concentration Automated count (MCHC) </content>32.2 G/DL<content styleCode="Ital ics"> (32.0-37.0 G/DL)</content> Lymphocytes 24.0-44. Below low normal <content [facility] [#/volume] in 0 styleCode="[place] Blood by ">Lymphocyte Medical Automated count </content>14.6 Center % L<content styleCode="Ital ics"> (24.0-44.0 %)</content> UNK 1.6-7.3 <content [facility] styleCode="[facility]old [place] ">Neutrophil Medical Count Center </content>4.16 KCUMM<content styleCode="Ital ics"> (1.6-7.3 KCUMM)</content > Neutrophils 36-66 Above high <content [facility] [#/volume] in normal styleCode="[place] Blood by ">Neutrophil Medical Automated count </content>72.3 Center % H<content styleCode="Ital ics"> (36-66 %)</content> Platelet mean 8.0-11.0 <content [facility] volume [Entitic styleCode="[place] volume] in Blood ">Mean Platelet Medical by Automated Volume Center count </content>10.0 FL<content styleCode="Ital ics"> (8.0-11.0 FL)</content> Eosinophils 0-5.0 <content [facility] [#/volume] in styleCode="[place] Blood by ">Eosinophil Medical Automated count </content>1.0 Center %<content styleCode="Ital ics"> (0-5.0 %)</content> UNK 0.2-0.9 <content [facility] styleCode="[facility]old [place] ">Monocyte Medical Count Center </content>0.65 KCUMM<content styleCode="Ital ics"> (0.2-0.9 KCUMM)</content > Monocytes 3.0-10.0 Above high <content [facility] [#/volume] in normal styleCode="[place] Blood by ">Monocyte Medical Automated count </content>11.3 Center % H<content styleCode="Ital ics"> (3.0-10.0 %)</content> UNK 1.0-4.8 Below low normal <content [facility] styleCode="[facility]old [place] ">Lymphocyte Medical Count Center </content>0.84 KCUMM L<content styleCode="Ital ics"> (1.0-4.8 KCUMM)</content > UNK 0.0-0.3 <content [facility] styleCode="Bold [place] ">Basophil Medical Count Center </content>0.02 KCUMM<content styleCode="Ital ics"> (0.0-0.3 KCUMM)</content > Basophils 0.0-1.0 <content [facility] [#/volume] in styleCode="[place] Blood by ">Basophil Medical Automated count </content>0.3 Center %<content styleCode="Ital ics"> (0.0-1.0 %)</content> UNK 0.0-0.6 <content [facility] styleCode="[facility] [place] ">Eosinophil Medical Count Center </content>0.06 KCUMM<content styleCode="Ital ics"> (0.0-0.6 KCUMM)</content > UNK < 1 <content [facility] styleCode="[facility] [place] ">Immature Medical Granulocyte Center Ratio </content>0.5 %<content styleCode="Ital ics"> (< 1 %)</content> UNK 0-0.1 <content [facility] styleCode="[facility]old [place] ">Immature Medical Granulocyte Center Count </content>0.03 KCUMM<content styleCode="Ital ics"> (0-0.1 KCUMM)</content > UNK 0.0 <content [facility] styleCode="Bold [place] ">Nucleated Red Medical Blood Cell Center Count </content>0.00 KCUMM<content styleCode="Ital ics"> (0.0 KCUMM)</content > UNK 0 <content Saint styleCode="Bold [place] ">Nucleated Red Medical Blood Cell Center </content>0.0 /100<content styleCode="Ital ics"> (0 /100)</content> Leukocytes 4.4-11.0 <content [facility] [#/volume] in styleCode="[place] Blood by ">White Blood Medical Automated count Cell Count Center </content>5.33 KCUMM<content styleCode="Ital ics"> (4.4-11.0 KCUMM)</content > Erythrocyte mean 32.0-37. Below low normal <content [facility] corpuscular 0 styleCode="[place] hemoglobin ">Mean Corpus. Medical concentration Hgb Center [Mass/volume] by Concentration Automated count (MCHC) </content>31.4 G/DL L<content styleCode="Ital ics"> (32.0-37.0 G/DL)</content> Erythrocyte mean 26.0-34. <content [facility] corpuscular 0 styleCode="[place] [place] hemoglobin ">Mean Medical [Entitic mass] Corposcular Center by Automated Hemoglobin count </content>26.2 PG<content styleCode="Ital ics"> (26.0-34.0 PG)</content> Erythrocyte mean 80.0-100 <content [facility] corpuscular .0 styleCode="[place]old [place] volume [Entitic ">Mean Medical volume] by Corpuscular Center Automated count Volume </content>83.4 FL<content styleCode="Ital ics"> (80.0-100.0 FL)</content> Hematocrit 41.0-53. Below low normal <content [facility] [Volume 0 styleCode="[place]old [place] Fraction] of ">Hematocrit Medical Blood by </content>29.6 Center Automated count % L<content styleCode="Ital ics"> (41.0-53.0 %)</content> Hemoglobin 13.5-17. Below low normal <content [facility] [Mass/volume] in 5 styleCode="[place] Blood ">Hemoglobin Medical </content>9.3 Center G/DL L<content styleCode="Ital ics"> (13.5-17.5 G/DL)</content> Erythrocytes 4.4-5.9 Below low normal <content [facility] [#/volume] in styleCode="[place] Blood by ">Red Blood Medical Automated count Cell Count Center </content>3.55 MCUMM L<content styleCode="Ital ics"> (4.4-5.9 MCUMM)</content > UNK 0.0 <content [facility] styleCode="[facility]old [place] ">Nucleated Red Medical Blood Cell Center Count </content>0.00 KCUMM<content styleCode="Ital ics"> (0.0 KCUMM)</content > UNK 0 <content [facility] styleCode="[facility] [place] ">Nucleated Red Medical Blood Cell Center </content>0.0 /100<content styleCode="Ital ics"> (0 /100)</content> Platelet mean 8.0-11.0 <content [facility] volume [Entitic styleCode="[facility] volume] in Blood ">Mean Platelet Medical by Automated Volume Center count </content>9.4 FL<content styleCode="Ital ics"> (8.0-11.0 FL)</content> Platelets 130-400 <content [facility] [#/volume] in styleCode="[facility] [place] Blood by ">Platelet Medical Automated count Count Center </content>154 KCUMM<content styleCode="Ital ics"> (130-400 KCUMM)</content > Erythrocyte 11.5-14. Above high <content [facility] distribution 5 normal styleCode="[facility] [place] width [Ratio] by ">Red Cell Medical Automated count Distribution Center Width </content>18.4 % H<content styleCode="Ital ics"> (11.5-14.5 %)</content> Hematocrit 41.0-53. Below low normal <content [facility] [Volume 0 styleCode="[facility] Fraction] of ">Hematocrit Medical Blood by </content>28.5 Center Automated count % L<content styleCode="Ital ics"> (41.0-53.0 %)</content> Hemoglobin 13.5-17. Below low normal <content [facility] [Mass/volume] in 5 styleCode="[facility] [place] Blood ">Hemoglobin Medical </content>8.9 Center G/DL L<content styleCode="Ital ics"> (13.5-17.5 G/DL)</content> Erythrocytes 4.4-5.9 Below low normal <content [facility] [#/volume] in styleCode="[facility] [place] Blood by ">Red Blood Medical Automated count Cell Count Center </content>3.46 MCUMM L<content styleCode="Ital ics"> (4.4-5.9 MCUMM)</content > Leukocytes 4.4-11.0 <content [facility] [#/volume] in styleCode="[facility] [place] Blood by ">White Blood Medical Automated count Cell Count Center </content>5.42 KCUMM<content styleCode="Ital ics"> (4.4-11.0 KCUMM)</content > Platelets 130-400 <content [facility] [#/volume] in styleCode="[facility] [place] Blood by ">Platelet Medical Automated count Count Center </content>154 KCUMM<content styleCode="Ital ics"> (130-400 KCUMM)</content > Erythrocyte 11.5-14. Above high <content [facility] distribution 5 normal styleCode="[facility] [place] width [Ratio] by ">Red Cell Medical Automated count Distribution Center Width </content>18.3 % H<content styleCode="Ital ics"> (11.5-14.5 %)</content> Erythrocyte mean 32.0-37. Below low normal <content [facility] corpuscular 0 styleCode="[facility] [place] hemoglobin ">Mean Corpus. Medical concentration Hgb Center [Mass/volume] by Concentration Automated count (MCHC) </content>31.2 G/DL L<content styleCode="Ital ics"> (32.0-37.0 G/DL)</content> Erythrocyte mean 26.0-34. Below low normal <content [facility] corpuscular 0 styleCode="[facility] [place] hemoglobin ">Mean Medical [Entitic mass] Corposcular Center by Automated Hemoglobin count </content>25.7 PG L<content styleCode="Ital ics"> (26.0-34.0 PG)</content> Erythrocyte mean 80.0-100 <content [facility] corpuscular .0 styleCode="[facility] [place] volume [Entitic ">Mean Medical volume] by Corpuscular Center Automated count Volume </content>82.4 FL<content styleCode="Ital ics"> (80.0-100.0 FL)</content> UNK 0.0 <content [facility] styleCode="[facility] [place] ">Nucleated Red Medical Blood Cell Center Count </content>0.00 KCUMM<content styleCode="Ital ics"> (0.0 KCUMM)</content > UNK 0 <content [facility] styleCode="[facility] [place] ">Nucleated Red Medical Blood Cell Center </content>0.0 /100<content styleCode="Ital ics"> (0 /100)</content> Platelet mean 8.0-11.0 <content [facility] volume [Entitic styleCode="[facility] [place] volume] in Blood ">Mean Platelet Medical by Automated Volume Center count </content>10.3 FL<content styleCode="Ital ics"> (8.0-11.0 FL)</content> ID Date Data Source GFR(Creatinine) 10/23/2018 07:20:00 PM EDT [facility] Name Value Range Interpretation Code Description Data Pebbles rce(s) Supporting Document(s ) UNK > 60 <content [facility] styleCode="Bold"> Medical Cent er EGFR </content>145 GFR<content styleCode="Italic s"> (> 60 GFR)</content> UNK > 60 <content [facility] styleCode="Bold"> Medical Cent er EGFR </content>178 GFR<content styleCode="Italic s"> (> 60 GFR)</content> UNK > 60 <content [facility] styleCode="Bold"> Medical Cent er EGFR </content>145 GFR<content styleCode="Italic s"> (> 60 GFR)</content> UNK > 60 <content [facility] styleCode="Bold"> Medical Cent er EGFR </content>178 GFR<content styleCode="Italic s"> (> 60 GFR)</content> UNK > 60 <content [facility] styleCode="Bold"> Medical Cent er EGFR </content>178 GFR<content styleCode="Italic s"> (> 60 GFR)</content> UNK > 60 <content [facility] styleCode="Bold"> Medical Cent er EGFR </content>121 GFR<content styleCode="Italic s"> (> 60 GFR)</content> UNK > 60 <content [facility] styleCode="Bold"> Medical Cent er EGFR </content>145 GFR<content styleCode="Italic s"> (> 60 GFR)</content> UNK > 60 <content [facility] styleCode="Bold"> Medical Cent er EGFR </content>178 GFR<content styleCode="Italic s"> (> 60 GFR)</content> UNK > 60 <content [facility] styleCode="Bold"> Medical Cent er EGFR </content>145 GFR<content styleCode="Italic s"> (> 60 GFR)</content> UNK > 60 <content [facility] styleCode="Bold"> Medical Cent er EGFR </content>121 GFR<content styleCode="Italic s"> (> 60 GFR)</content> UNK > 60 <content [facility] styleCode="Bold"> Medical Cent er EGFR </content>178 GFR<content styleCode="Italic s"> (> 60 GFR)</content> UNK > 60 <content [facility] styleCode="Bold"> Medical Cent er EGFR </content>145 GFR<content styleCode="Italic s"> (> 60 GFR)</content> UNK > 60 <content [facility] styleCode="Bold"> Medical Cent er EGFR </content>178 GFR<content styleCode="Italic s"> (> 60 GFR)</content> ID Date Data Source Coagulation Rout 10/23/2018 07:20:00 PM EDT [facility] Name Value Range Interpretation Description Data Sup porting Code Source(s) Document(s ) UNK 9.0-13.0 <content [facility] styleCode="Bold" [facility] >Protime Medical </content>12.9 Center SEC<content styleCode="Itali cs"> (9.0-13.0 SEC)</content> aPTT in 25.1-36. <content [facility] Platelet poor 5 styleCode="Bold" [place] plasma by >Partial Medical Coagulation Thromboplastin Center assay Time </content>32.7 SEC<content styleCode="Itali cs"> (25.1-36.5 SEC)</content> INR in 0.80-1.2 <content [facility] Platelet poor 0 styleCode="Bold" [place] plasma by >INR Medical Coagulation </content>1.14 Center assay #<content styleCode="Itali cs"> (0.80-1.20 #)</content> aPTT in 25.1-36. <content [facility] Platelet poor 5 styleCode="Bold" [place] plasma by >Partial Medical Coagulation Thromboplastin Center assay Time </content>29.6 SEC<content styleCode="Itali cs"> (25.1-36.5 SEC)</content> INR in 0.80-1.2 <content [facility] Platelet poor 0 styleCode="Bold" [place] plasma by >INR Medical Coagulation </content>1.18 Center assay #<content styleCode="Itali cs"> (0.80-1.20 #)</content> UNK 9.0-13.0 Above high normal <content [facility] styleCode="Bold" [facility] >[facility]time Medical </content>13.4 Center SEC H<content styleCode="Itali cs"> (9.0-13.0 SEC)</content> aPTT in 25.1-36. <content [facility] Platelet poor 5 styleCode="Bold" [place] plasma by >Partial Medical Coagulation Thromboplastin Center assay Time </content>30.5 SEC<content styleCode="Itali cs"> (25.1-36.5 SEC)</content> INR in 0.80-1.2 <content [facility] Platelet poor 0 styleCode="Bold" [place] plasma by >INR Medical Coagulation </content>1.06 Center assay #<content styleCode="Itali cs"> (0.80-1.20 #)</content> UNK 9.0-13.0 <content [facility] styleCode="Bold" [place] >Protime Medical </content>12.0 Center SEC<content styleCode="Itali cs"> (9.0-13.0 SEC)</content> INR in 0.80-1.2 <content [facility] Platelet poor 0 styleCode="Bold" [place] plasma by >INR Medical Coagulation </content>0.96 Center assay #<content styleCode="Itali cs"> (0.80-1.20 #)</content> UNK 9.0-13.0 <content [facility] styleCode="Bold" [facility] >[facility]time [facility] </content>10.8 Center SEC<content styleCode="Itali cs"> (9.0-13.0 SEC)</content> aPTT in 25.1-36. <content [facility] Platelet poor 5 styleCode="Bold" [place] plasma by >Partial Medical Coagulation Thromboplastin Center assay Time </content>29.5 SEC<content styleCode="Itali cs"> (25.1-36.5 SEC)</content> aPTT in 25.1-36. <content [facility] Platelet poor 5 styleCode="Bold" [place] plasma by >Partial Medical Coagulation Thromboplastin Center assay Time </content>31.4 SEC<content styleCode="Itali cs"> (25.1-36.5 SEC)</content> INR in 0.80-1.2 <content [facility] Platelet poor 0 styleCode="Bold" [place] plasma by >INR Medical Coagulation </content>1.13 Center assay #<content styleCode="Itali cs"> (0.80-1.20 #)</content> UNK 9.0-13.0 <content [facility] styleCode="Bold" [facility] >[facility] </content>12.8 Center SEC<content styleCode="Itali cs"> (9.0-13.0 SEC)</content> aPTT in 25.1-36. <content [facility] Platelet poor 5 styleCode="Bold" [place] plasma by >Partial Medical Coagulation Thromboplastin Center assay Time </content>30.7 SEC<content styleCode="Itali cs"> (25.1-36.5 SEC)</content> INR in 0.80-1.2 <content [facility] Platelet poor 0 styleCode="Bold" [place] plasma by >INR Medical Coagulation </content>1.10 Center assay #<content styleCode="Itali cs"> (0.80-1.20 #)</content> UNK 9.0-13.0 <content [facility] styleCode="Bold" [facility] >[facility] </content>12.4 Center SEC<content styleCode="Itali cs"> (9.0-13.0 SEC)</content> ID Date Data Source [employer] 10/23/2018 07:20:00 PM EDT [facility] Name Value Range Interpretation Description Data Sup porting Code Source(s) Document(s ) Troponin 0-0.034 <content [facility] I.cardiac styleCode="[facility] [place] [Mass/volume ">Troponin I Medical ] in Serum </content>< Center or Plasma 0.012 NG/ML<content styleCode="Ital ics"> (0-0.034 NG/ML)</content > Troponin 0-0.034 <content [facility] I.cardiac styleCode="[facility] [place] [Mass/volume ">Troponin I Medical ] in Serum </content>< Center or Plasma 0.012 NG/ML<content styleCode="Ital ics"> (0-0.034 NG/ML)</content > Troponin 0-0.034 <content [facility] I.cardiac styleCode="[facility] [place] [Mass/volume ">Troponin I Medical ] in Serum </content>< Center or Plasma 0.012 NG/ML<content styleCode="Ital ics"> (0-0.034 NG/ML)</content > Troponin 0-0.034 <content [facility] I.cardiac styleCode="[facility] [place] [Mass/volume ">Troponin I Medical ] in Serum </content>< Center or Plasma 0.012 NG/ML<content styleCode="Ital ics"> (0-0.034 NG/ML)</content > Troponin < 0.034 <content [facility] I.cardiac styleCode="[facility] [place] [Mass/volume ">Troponin I Medical ] in Serum </content>< Center or Plasma 0.012 NG/ML<content styleCode="Ital ics"> (< 0.034 NG/ML)</content > ID Date Data Source BMP 10/23/2018 07:20:00 PM EDT [facility] Name Value Range Interpretation Description Data Sup porting Code Source(s) Document(s ) Potassium 3.5-5.3 <content [facility] [Moles/volume] in styleCode="Bold"> [facility] Serum or Plasma Potassium Medical </content>3.8 Center MEQ/L<content styleCode="Italic s"> (3.5-5.3 MEQ/L)</content> Sodium 137-145 <content [facility] [Moles/volume] in styleCode="Bold"> [facility] Serum or Plasma Sodium Medical </content>139 Center MEQ/L<content styleCode="Italic s"> (137-145 MEQ/L)</content> Chloride 98-107 <content [facility] [Moles/volume] in styleCode="Bold"> [facility] Serum or Plasma Chloride Medical </content>105 Center MEQ/L<content styleCode="Italic s"> (98-107 MEQ/L)</content> UNK 9-20 Below low <content [facility] normal styleCode="Bold"> [facility] BUN </content>6 Medical MG/DL L<content Center styleCode="Italic s"> (9-20 MG/DL)</content> Carbon dioxide, 22-30 <content [facility] total styleCode="Bold"> [place] [Moles/volume] in Carbon Dioxide Medical Serum or Plasma </content>25 Center MEQ/L<content styleCode="Italic s"> (22-30 MEQ/L)</content> Glucose 74-106 Above high <content [facility] [Mass/volume] in normal styleCode="Bold"> [facility] Serum or Plasma Glucose Medical </content>107 Center MG/DL H<content styleCode="Italic s"> (74-106 MG/DL)</content> Creatinine 0.5-1.3 <content [facility] [Mass/volume] in styleCode="Bold"> [facility] Serum or Plasma Creatinine Medical </content>0.6 Center MG/DL<content styleCode="Italic s"> (0.5-1.3 MG/DL)</content> Aspartate 17-59 <content [facility] aminotransferase styleCode="Bold"> [facility] [Enzymatic Aspartate Medical activity/volume] Aminotransferase Center in Serum or Plasma (AST) </content>29 IU/L<content styleCode="Italic s"> (17-59 IU/L)</content> UNK > 60 <content [facility] styleCode="Bold"> [place] EGFR Medical </content>145 Center GFR<content styleCode="Italic s"> (> 60 GFR)</content> Calcium 8.4-10. <content [facility] [Mass/volume] in 2 styleCode="Bold"> [facility] Serum or Plasma Calcium Medical </content>9.1 Center MG/DL<content styleCode="Italic s"> (8.4-10.2 MG/DL)</content> Alanine 7-50 <content [facility] aminotransferase styleCode="Bold"> [facility] [Enzymatic Alanine Medical activity/volume] Aminotransferase Center in Serum or Plasma (ALT) </content>22 IU/L<content styleCode="Italic s"> (7-50 IU/L)</content> Albumin 3.5-5.0 <content [facility] [Mass/volume] in styleCode="Bold"> [facility] Serum or Plasma Albumin Medical </content>3.7 Center G/DL<content styleCode="Italic s"> (3.5-5.0 G/DL)</content> Bilirubin.total 0.2-1.3 <content [facility] [Mass/volume] in styleCode="Bold"> [facility] Serum or Plasma Bilirubin Total Medical </content>0.5 Center MG/DL<content styleCode="Italic s"> (0.2-1.3 MG/DL)</content> Alkaline 38-126 <content [facility] phosphatase styleCode="Bold"> [place] [Enzymatic Alkaline Medical activity/volume] Phosphatase (ALP) Cente r in Serum or Plasma </content>112 IU/L<content styleCode="Italic s"> (38-126 IU/L)</content> Potassium 3.5-5.3 <content [facility] [Moles/volume] in styleCode="Bold"> [facility] Serum or Plasma Potassium Medical </content>3.5 Center MEQ/L<content styleCode="Italic s"> (3.5-5.3 MEQ/L)</content> Carbon dioxide, 22-30 Above high <content [facility] total normal styleCode="Bold"> [place] [Moles/volume] in Carbon Dioxide Medical Serum or Plasma </content>32 Center MEQ/L H<content styleCode="Italic s"> (22-30 MEQ/L)</content> Chloride 98-107 <content [facility] [Moles/volume] in styleCode="Bold"> [facility] Serum or Plasma Chloride Medical </content>104 Center MEQ/L<content styleCode="Italic s"> (98-107 MEQ/L)</content> Potassium 3.5-5.3 Below low <content [facility] [Moles/volume] in normal styleCode="Bold"> [facility] Serum or Plasma Potassium Medical </content>3.3 Center MEQ/L L<content styleCode="Italic s"> (3.5-5.3 MEQ/L)</content> Sodium 137-145 <content [facility] [Moles/volume] in styleCode="Bold"> [facility] Serum or Plasma Sodium Medical </content>144 Center MEQ/L<content styleCode="Italic s"> (137-145 MEQ/L)</content> Calcium 8.4-10. <content [facility] [Mass/volume] in 2 styleCode="Bold"> [facility] Serum or Plasma Calcium Medical </content>8.8 Center MG/DL<content styleCode="Italic s"> (8.4-10.2 MG/DL)</content> Glucose 74-106 <content [facility] [Mass/volume] in styleCode="Bold"> [facility] Serum or Plasma Glucose Medical </content>96 Center MG/DL<content styleCode="Italic s"> (74-106 MG/DL)</content> Creatinine 0.5-1.3 <content [facility] [Mass/volume] in styleCode="Bold"> [facility] Serum or Plasma Creatinine Medical </content>0.6 Center MG/DL<content styleCode="Italic s"> (0.5-1.3 MG/DL)</content> UNK 9-20 Below low <content [facility] normal styleCode="Bold"> [place] BUN </content>8 Medical MG/DL L<content Center styleCode="Italic s"> (9-20 MG/DL)</content> UNK > 60 <content [facility] styleCode="Bold"> [place] EGFR Medical </content>145 Center GFR<content styleCode="Italic s"> (> 60 GFR)</content> Chloride 98-107 <content [facility] [Moles/volume] in styleCode="Bold"> [facility] Serum or Plasma Chloride Medical </content>104 Center MEQ/L<content styleCode="Italic s"> (98-107 MEQ/L)</content> Potassium 3.5-5.3 Below low <content [facility] [Moles/volume] in normal styleCode="Bold"> [facility] Serum or Plasma Potassium Medical </content>3.1 Center MEQ/L L<content styleCode="Italic s"> (3.5-5.3 MEQ/L)</content> Sodium 137-145 <content [facility] [Moles/volume] in styleCode="Bold"> [facility] Serum or Plasma Sodium Medical </content>145 Center MEQ/L<content styleCode="Italic s"> (137-145 MEQ/L)</content> Glucose 74-106 <content [facility] [Mass/volume] in styleCode="Bold"> [facility] Serum or Plasma Glucose Medical </content>92 Center MG/DL<content styleCode="Italic s"> (74-106 MG/DL)</content> Creatinine 0.5-1.3 <content [facility] [Mass/volume] in styleCode="Bold"> [facility] Serum or Plasma Creatinine Medical </content>0.5 Center MG/DL<content styleCode="Italic s"> (0.5-1.3 MG/DL)</content> UNK 9-20 <content [facility] styleCode="Bold"> [place] BUN </content>9 Medical MG/DL<content Center styleCode="Italic s"> (9-20 MG/DL)</content> Carbon dioxide, 22-30 <content [facility] total styleCode="Bold"> [place] [Moles/volume] in Carbon Dioxide Medical Serum or Plasma </content>29 Center MEQ/L<content styleCode="Italic s"> (22-30 MEQ/L)</content> UNK > 60 <content [facility] styleCode="Bold"> [place] EGFR Medical </content>178 Center GFR<content styleCode="Italic s"> (> 60 GFR)</content> Calcium 8.4-10. <content [facility] [Mass/volume] in 2 styleCode="Bold"> [facility] Serum or Plasma Calcium Medical </content>9.0 Center MG/DL<content styleCode="Italic s"> (8.4-10.2 MG/DL)</content> Sodium 137-145 <content [facility] [Moles/volume] in styleCode="Bold"> [facility] Serum or Plasma Sodium Medical </content>140 Center MEQ/L<content styleCode="Italic s"> (137-145 MEQ/L)</content> Carbon dioxide, 22-30 <content [facility] total styleCode="Bold"> [place] [Moles/volume] in Carbon Dioxide Medical Serum or Plasma </content>24 Center MEQ/L<content styleCode="Italic s"> (22-30 MEQ/L)</content> Chloride 98-107 <content [facility] [Moles/volume] in styleCode="Bold"> [facility] Serum or Plasma Chloride Medical </content>103 Center MEQ/L<content styleCode="Italic s"> (98-107 MEQ/L)</content> Potassium 3.5-5.3 Below lower <content [facility] [Moles/volume] in panic limits styleCode="Bold"> [facility] Serum or Plasma Potassium Medical </content><conten Center t styleCode="Bold"> 3.0 MEQ/L LL</content><cont ent styleCode="Italic s"> (3.5-5.3 MEQ/L)</content> Calcium 8.4-10. <content [facility] [Mass/volume] in 2 styleCode="Bold"> [facility] Serum or Plasma Calcium Medical </content>8.9 Center MG/DL<content styleCode="Italic s"> (8.4-10.2 MG/DL)</content> Glucose 74-106 <content [facility] [Mass/volume] in styleCode="Bold"> [facility] Serum or Plasma Glucose Medical </content>84 Center MG/DL<content styleCode="Italic s"> (74-106 MG/DL)</content> Creatinine 0.5-1.3 <content [facility] [Mass/volume] in styleCode="Bold"> [facility] Serum or Plasma Creatinine Medical </content>0.5 Center MG/DL<content styleCode="Italic s"> (0.5-1.3 MG/DL)</content> UNK 9-20 Below low <content [facility] normal styleCode="Bold"> [place] BUN </content>8 Medical MG/DL L<content Center styleCode="Italic s"> (9-20 MG/DL)</content> Bilirubin.total 0.2-1.3 <content [facility] [Mass/volume] in styleCode="Bold"> [facility] Serum or Plasma Bilirubin Total Medical </content>0.7 Center MG/DL<content styleCode="Italic s"> (0.2-1.3 MG/DL)</content> Alkaline 38-126 <content [facility] phosphatase styleCode="Bold"> [place] [Enzymatic Alkaline Medical activity/volume] Phosphatase (ALP) Cente r in Serum or Plasma </content>109 IU/L<content styleCode="Italic s"> (38-126 IU/L)</content> Alanine 7-50 <content [facility] aminotransferase styleCode="Bold"> [facility] [Enzymatic Alanine Medical activity/volume] Aminotransferase Center in Serum or Plasma (ALT) </content>17 IU/L<content styleCode="Italic s"> (7-50 IU/L)</content> Aspartate 17-59 <content [facility] aminotransferase styleCode="Bold"> [facility] [Enzymatic Aspartate Medical activity/volume] Aminotransferase Center in Serum or Plasma (AST) </content>43 IU/L<content styleCode="Italic s"> (17-59 IU/L)</content> UNK > 60 <content [facility] styleCode="Bold"> [place] EGFR Medical </content>178 Center GFR<content styleCode="Italic s"> (> 60 GFR)</content> Albumin 3.5-5.0 <content [facility] [Mass/volume] in styleCode="Bold"> [facility] Serum or Plasma Albumin Medical </content>3.8 Center G/DL<content styleCode="Italic s"> (3.5-5.0 G/DL)</content> Chloride 98-107 <content [facility] [Moles/volume] in styleCode="Bold"> [facility] Serum or Plasma Chloride Medical </content>103 Center MEQ/L<content styleCode="Italic s"> (98-107 MEQ/L)</content> Potassium 3.5-5.3 Below lower <content [facility] [Moles/volume] in panic limits styleCode="Bold"> [facility] Serum or Plasma Potassium Medical </content><conten Center t styleCode="Bold"> 3.0 MEQ/L LL</content><cont ent styleCode="Italic s"> (3.5-5.3 MEQ/L)</content> Sodium 137-145 <content [facility] [Moles/volume] in styleCode="Bold"> [facility] Serum or Plasma Sodium Medical </content>143 Center MEQ/L<content styleCode="Italic s"> (137-145 MEQ/L)</content> UNK 9-20 <content [facility] styleCode="Bold"> [place] BUN </content>12 Medical MG/DL<content Center styleCode="Italic s"> (9-20 MG/DL)</content> Carbon dioxide, 22-30 <content [facility] total styleCode="Bold"> [place] [Moles/volume] in Carbon Dioxide Medical Serum or Plasma </content>27 Center MEQ/L<content styleCode="Italic s"> (22-30 MEQ/L)</content> Glucose 74-106 <content [facility] [Mass/volume] in styleCode="Bold"> [facility] Serum or Plasma Glucose Medical </content>105 Center MG/DL<content styleCode="Italic s"> (74-106 MG/DL)</content> Creatinine 0.5-1.3 <content [facility] [Mass/volume] in styleCode="Bold"> [facility] Serum or Plasma Creatinine Medical </content>0.7 Center MG/DL<content styleCode="Italic s"> (0.5-1.3 MG/DL)</content> UNK > 60 <content [facility] styleCode="Bold"> [place] EGFR Medical </content>121 Center GFR<content styleCode="Italic s"> (> 60 GFR)</content> Calcium 8.4-10. <content [facility] [Mass/volume] in 2 styleCode="Bold"> [facility] Serum or Plasma Calcium Medical </content>9.1 Center MG/DL<content styleCode="Italic s"> (8.4-10.2 MG/DL)</content> Chloride 98-107 <content [facility] [Moles/volume] in styleCode="Bold"> [facility] Serum or Plasma Chloride Medical </content>103 Center MEQ/L<content styleCode="Italic s"> (98-107 MEQ/L)</content> Potassium 3.5-5.3 Below lower <content [facility] [Moles/volume] in panic limits styleCode="Bold"> [facility] Serum or Plasma Potassium Medical </content><conten Center t styleCode="Bold"> 2.9 MEQ/L LL</content><cont ent styleCode="Italic s"> (3.5-5.3 MEQ/L)</content> Sodium 137-145 <content [facility] [Moles/volume] in styleCode="Bold"> [facility] Serum or Plasma Sodium Medical </content>137 Center MEQ/L<content styleCode="Italic s"> (137-145 MEQ/L)</content> Glucose 74-106 <content [facility] [Mass/volume] in styleCode="Bold"> [facility] Serum or Plasma Glucose Medical </content>84 Center MG/DL<content styleCode="Italic s"> (74-106 MG/DL)</content> Creatinine 0.5-1.3 <content [facility] [Mass/volume] in styleCode="Bold"> [facility] Serum or Plasma Creatinine Medical </content>0.6 Center MG/DL<content styleCode="Italic s"> (0.5-1.3 MG/DL)</content> UNK 9-20 Below low <content [facility] normal styleCode="Bold"> [place] BUN </content>5 Medical MG/DL L<content Center styleCode="Italic s"> (9-20 MG/DL)</content> Carbon dioxide, 22-30 <content [facility] total styleCode="Bold"> [place] [Moles/volume] in Carbon Dioxide Medical Serum or Plasma </content>27 Center MEQ/L<content styleCode="Italic s"> (22-30 MEQ/L)</content> Alkaline 38-126 <content [facility] phosphatase styleCode="Bold"> [place] [Enzymatic Alkaline Medical activity/volume] Phosphatase (ALP) Cente r in Serum or Plasma </content>91 IU/L<content styleCode="Italic s"> (38-126 IU/L)</content> Alanine 7-50 <content [facility] aminotransferase styleCode="Bold"> [facility] [Enzymatic Alanine Medical activity/volume] Aminotransferase Center in Serum or Plasma (ALT) </content>21 IU/L<content styleCode="Italic s"> (7-50 IU/L)</content> Aspartate 17-59 <content [facility] aminotransferase styleCode="Bold"> [facility] [Enzymatic Aspartate Medical activity/volume] Aminotransferase Center in Serum or Plasma (AST) </content>49 IU/L<content styleCode="Italic s"> (17-59 IU/L)</content> UNK > 60 <content [facility] styleCode="Bold"> [place] EGFR Medical </content>145 Center GFR<content styleCode="Italic s"> (> 60 GFR)</content> Calcium 8.4-10. Below low <content [facility] [Mass/volume] in 2 normal styleCode="Bold"> [facility] Serum or Plasma Calcium Medical </content>8.3 Center MG/DL L<content styleCode="Italic s"> (8.4-10.2 MG/DL)</content> Albumin 3.5-5.0 Below low <content [facility] [Mass/volume] in normal styleCode="Bold"> Stephan hs Serum or Plasma Albumin Medical </content>3.3 Center G/DL L<content styleCode="Italic s"> (3.5-5.0 G/DL)</content> Bilirubin.total 0.2-1.3 Above high <content [facility] [Mass/volume] in normal styleCode="Bold"> Stephan hs Serum or Plasma Bilirubin Total Medical </content>1.6 Center MG/DL H<content styleCode="Italic s"> (0.2-1.3 MG/DL)</content> Sodium 137-145 <content [facility] [Moles/volume] in styleCode="Bold"> [facility] phs Serum or Plasma Sodium Medical </content>141 Center MEQ/L<content styleCode="Italic s"> (137-145 MEQ/L)</content> UNK 9-20 Below low <content [facility] normal styleCode="Bold"> sIhaan BUN </content>5 Medical MG/DL L<content Center styleCode="Italic s"> (9-20 MG/DL)</content> Carbon dioxide, 22-30 <content [facility] total styleCode="Bold"> [facility] [Moles/volume] in Carbon Dioxide Medical Serum or Plasma </content>28 Center MEQ/L<content styleCode="Italic s"> (22-30 MEQ/L)</content> Chloride 98-107 <content [facility] [Moles/volume] in styleCode="Bold"> [facility] phs Serum or Plasma Chloride Medical </content>105 Center MEQ/L<content styleCode="Italic s"> (98-107 MEQ/L)</content> Potassium 3.5-5.3 Below lower <content [facility] [Moles/volume] in panic limits styleCode="Bold"> J osephs Serum or Plasma Potassium Medical </content><conten Center t styleCode="Bold"> 2.9 MEQ/L LL</content><cont ent styleCode="Italic s"> (3.5-5.3 MEQ/L)</content> Aspartate 17-59 <content [facility] aminotransferase styleCode="Bold"> [facility] hs [Enzymatic Aspartate Medical activity/volume] Aminotransferase Center in Serum or Plasma (AST) </content>41 IU/L<content styleCode="Italic s"> (17-59 IU/L)</content> UNK > 60 <content [facility] styleCode="Bold"> [facility] EGFR Medical </content>178 Center GFR<content styleCode="Italic s"> (> 60 GFR)</content> Calcium 8.4-10. Below low <content [facility] [Mass/volume] in 2 normal styleCode="Bold"> Stephan hs Serum or Plasma Calcium Medical </content>7.5 Center MG/DL L<content styleCode="Italic s"> (8.4-10.2 MG/DL)</content> Glucose 74-106 <content [facility] [Mass/volume] in styleCode="Bold"> Stephan hs Serum or Plasma Glucose Medical </content>85 Center MG/DL<content styleCode="Italic s"> (74-106 MG/DL)</content> Creatinine 0.5-1.3 <content [facility] [Mass/volume] in styleCode="Bold"> [facility] hs Serum or Plasma Creatinine Medical </content>0.5 Center MG/DL<content styleCode="Italic s"> (0.5-1.3 MG/DL)</content> Albumin 3.5-5.0 Below low <content [facility] [Mass/volume] in normal styleCode="Bold"> Stephan hs Serum or Plasma Albumin Medical </content>3.1 Center G/DL L<content styleCode="Italic s"> (3.5-5.0 G/DL)</content> Bilirubin.total 0.2-1.3 <content [facility] [Mass/volume] in styleCode="Bold"> Stephan hs Serum or Plasma Bilirubin Total Medical </content>1.2 Center MG/DL<content styleCode="Italic s"> (0.2-1.3 MG/DL)</content> Alkaline 38-126 <content [facility] phosphatase styleCode="Bold"> [facility] [Enzymatic Alkaline Medical activity/volume] Phosphatase (ALP) Cente r in Serum or Plasma </content>85 IU/L<content styleCode="Italic s"> (38-126 IU/L)</content> Alanine 7-50 <content [facility] aminotransferase styleCode="Bold"> Stephan hs [Enzymatic Alanine Medical activity/volume] Aminotransferase Center in Serum or Plasma (ALT) </content>18 IU/L<content styleCode="Italic s"> (7-50 IU/L)</content> Carbon dioxide, 22-30 <content [facility] total styleCode="Bold"> [place] [Moles/volume] in Carbon Dioxide Medical Serum or Plasma </content>27 Center MEQ/L<content styleCode="Italic s"> (22-30 MEQ/L)</content> Chloride 98-107 Above high <content [facility] [Moles/volume] in normal styleCode="Bold"> [facility] Serum or Plasma Chloride Medical </content>110 Center MEQ/L H<content styleCode="Italic s"> (98-107 MEQ/L)</content> Potassium 3.5-5.3 <content [facility] [Moles/volume] in styleCode="Bold"> [facility] Serum or Plasma Potassium Medical </content>3.8 Center MEQ/L<content styleCode="Italic s"> (3.5-5.3 MEQ/L)</content> Sodium 137-145 Above high <content [facility] [Moles/volume] in normal styleCode="Bold"> [facility] Serum or Plasma Sodium Medical </content>146 Center MEQ/L H<content styleCode="Italic s"> (137-145 MEQ/L)</content> Calcium 8.4-10. <content [facility] [Mass/volume] in 2 styleCode="Bold"> Stephan hs Serum or Plasma Calcium Medical </content>9.0 Center MG/DL<content styleCode="Italic s"> (8.4-10.2 MG/DL)</content> Glucose 74-106 <content [facility] [Mass/volume] in styleCode="Bold"> Stephan hs Serum or Plasma Glucose Medical </content>95 Center MG/DL<content styleCode="Italic s"> (74-106 MG/DL)</content> Creatinine 0.5-1.3 <content [facility] [Mass/volume] in styleCode="Bold"> Stephan hs Serum or Plasma Creatinine Medical </content>0.6 Center MG/DL<content styleCode="Italic s"> (0.5-1.3 MG/DL)</content> UNK 9-20 <content [facility] styleCode="Bold"> [place] BUN </content>11 Medical MG/DL<content Center styleCode="Italic s"> (9-20 MG/DL)</content> Bilirubin.total 0.2-1.3 <content [facility] [Mass/volume] in styleCode="Bold"> Stephan hs Serum or Plasma Bilirubin Total Medical </content>0.3 Center MG/DL<content styleCode="Italic s"> (0.2-1.3 MG/DL)</content> Alkaline 38-126 <content [facility] phosphatase styleCode="Bold"> [place] [Enzymatic Alkaline Medical activity/volume] Phosphatase (ALP) Cente r in Serum or Plasma </content>98 IU/L<content styleCode="Italic s"> (38-126 IU/L)</content> Alanine 7-50 <content [facility] aminotransferase styleCode="Bold"> Stephan hs [Enzymatic Alanine Medical activity/volume] Aminotransferase Center in Serum or Plasma (ALT) </content>23 IU/L<content styleCode="Italic s"> (7-50 IU/L)</content> Aspartate 17-59 <content [facility] aminotransferase styleCode="Bold"> Stephan hs [Enzymatic Aspartate Medical activity/volume] Aminotransferase Center in Serum or Plasma (AST) </content>33 IU/L<content styleCode="Italic s"> (17-59 IU/L)</content> UNK > 60 <content [facility] styleCode="Bold"> [place] EGFR Medical </content>145 Center GFR<content styleCode="Italic s"> (> 60 GFR)</content> Albumin 3.5-5.0 <content [facility] [Mass/volume] in styleCode="Bold"> Stephan hs Serum or Plasma Albumin Medical </content>3.8 Center G/DL<content styleCode="Italic s"> (3.5-5.0 G/DL)</content> Sodium 137-145 Above high <content [facility] [Moles/volume] in normal styleCode="Bold"> [place] phs Serum or Plasma Sodium Medical </content>146 Center MEQ/L H<content styleCode="Italic s"> (137-145 MEQ/L)</content> Carbon dioxide, 22-30 <content [facility] total styleCode="Bold"> [place] [Moles/volume] in Carbon Dioxide Medical Serum or Plasma </content>29 Center MEQ/L<content styleCode="Italic s"> (22-30 MEQ/L)</content> Chloride 98-107 <content [facility] [Moles/volume] in styleCode="Bold"> [place] phs Serum or Plasma Chloride Medical </content>107 Center MEQ/L<content styleCode="Italic s"> (98-107 MEQ/L)</content> Potassium 3.5-5.3 Below lower <content [facility] [Moles/volume] in panic limits styleCode="Bold"> J osephs Serum or Plasma Potassium Medical </content><conten Center t styleCode="Bold"> 3.0 MEQ/L LL</content><cont ent styleCode="Italic s"> (3.5-5.3 MEQ/L)</content> Calcium 8.4-10. <content [facility] [Mass/volume] in 2 styleCode="Bold"> Stephan hs Serum or Plasma Calcium Medical </content>8.4 Center MG/DL<content styleCode="Italic s"> (8.4-10.2 MG/DL)</content> Glucose 74-106 <content [facility] [Mass/volume] in styleCode="Bold"> Stephan hs Serum or Plasma Glucose Medical </content>82 Center MG/DL<content styleCode="Italic s"> (74-106 MG/DL)</content> Creatinine 0.5-1.3 <content [facility] [Mass/volume] in styleCode="Bold"> Stephan hs Serum or Plasma Creatinine Medical </content>0.7 Center MG/DL<content styleCode="Italic s"> (0.5-1.3 MG/DL)</content> UNK 9-20 <content [facility] styleCode="Bold"> [place] BUN </content>9 Medical MG/DL<content Center styleCode="Italic s"> (9-20 MG/DL)</content> Alanine 7-50 <content [facility] aminotransferase styleCode="Bold"> Stephan hs [Enzymatic Alanine Medical activity/volume] Aminotransferase Center in Serum or Plasma (ALT) </content>19 IU/L<content styleCode="Italic s"> (7-50 IU/L)</content> Aspartate 17-59 <content [facility] aminotransferase styleCode="Bold"> Stephan hs [Enzymatic Aspartate Medical activity/volume] Aminotransferase Center in Serum or Plasma (AST) </content>41 IU/L<content styleCode="Italic s"> (17-59 IU/L)</content> UNK > 60 <content [facility] styleCode="Bold"> [place] EGFR Medical </content>121 Center GFR<content styleCode="Italic s"> (> 60 GFR)</content> Albumin 3.5-5.0 <content [facility] [Mass/volume] in styleCode="Bold"> Stephan hs Serum or Plasma Albumin Medical </content>3.7 Center G/DL<content styleCode="Italic s"> (3.5-5.0 G/DL)</content> Bilirubin.total 0.2-1.3 <content [facility] [Mass/volume] in styleCode="Bold"> Stephan hs Serum or Plasma Bilirubin Total Medical </content>0.5 Center MG/DL<content styleCode="Italic s"> (0.2-1.3 MG/DL)</content> Alkaline 38-126 <content [facility] phosphatase styleCode="Bold"> [place] [Enzymatic Alkaline Medical activity/volume] Phosphatase (ALP) Cente r in Serum or Plasma </content>99 IU/L<content styleCode="Italic s"> (38-126 IU/L)</content> Sodium 137-145 Below low <content [facility] [Moles/volume] in normal styleCode="Bold"> [place] phs Serum or Plasma Sodium Medical </content>135 Center MEQ/L L<content styleCode="Italic s"> (137-145 MEQ/L)</content> Carbon dioxide, 22-30 <content [facility] total styleCode="Bold"> [place] [Moles/volume] in Carbon Dioxide Medical Serum or Plasma </content>28 Center MEQ/L<content styleCode="Italic s"> (22-30 MEQ/L)</content> Chloride 98-107 <content [facility] [Moles/volume] in styleCode="Bold"> [place] phs Serum or Plasma Chloride Medical </content>99 Center MEQ/L<content styleCode="Italic s"> (98-107 MEQ/L)</content> Potassium 3.5-5.3 Below lower <content [facility] [Moles/volume] in panic limits styleCode="Bold"> J osephs Serum or Plasma Potassium Medical </content><conten Center t styleCode="Bold"> 3.0 MEQ/L LL</content><cont ent styleCode="Italic s"> (3.5-5.3 MEQ/L)</content> Calcium 8.4-10. <content [facility] [Mass/volume] in 2 styleCode="Bold"> Stephan hs Serum or Plasma Calcium Medical </content>8.6 Center MG/DL<content styleCode="Italic s"> (8.4-10.2 MG/DL)</content> Glucose 74-106 <content [facility] [Mass/volume] in styleCode="Bold"> Stephan hs Serum or Plasma Glucose Medical </content>91 Center MG/DL<content styleCode="Italic s"> (74-106 MG/DL)</content> Creatinine 0.5-1.3 <content [facility] [Mass/volume] in styleCode="Bold"> Stephan hs Serum or Plasma Creatinine Medical </content>0.5 Center MG/DL<content styleCode="Italic s"> (0.5-1.3 MG/DL)</content> UNK 9-20 Below low <content [facility] normal styleCode="Bold"> [place] BUN </content>5 Medical MG/DL L<content Center styleCode="Italic s"> (9-20 MG/DL)</content> Alkaline 38-126 <content [facility] phosphatase styleCode="Bold"> [place] [Enzymatic Alkaline Medical activity/volume] Phosphatase (ALP) Cente r in Serum or Plasma </content>116 IU/L<content styleCode="Italic s"> (38-126 IU/L)</content> Alanine 7-50 <content [facility] aminotransferase styleCode="Bold"> Stephan hs [Enzymatic Alanine Medical activity/volume] Aminotransferase Center in Serum or Plasma (ALT) </content>21 IU/L<content styleCode="Italic s"> (7-50 IU/L)</content> Aspartate 17-59 <content [facility] aminotransferase styleCode="Bold"> Stephan hs [Enzymatic Aspartate Medical activity/volume] Aminotransferase Center in Serum or Plasma (AST) </content>43 IU/L<content styleCode="Italic s"> (17-59 IU/L)</content> UNK > 60 <content [facility] styleCode="Bold"> [place] EGFR Medical </content>178 Center GFR<content styleCode="Italic s"> (> 60 GFR)</content> Albumin 3.5-5.0 <content [facility] [Mass/volume] in styleCode="Bold"> Stephan hs Serum or Plasma Albumin Medical </content>3.9 Center G/DL<content styleCode="Italic s"> (3.5-5.0 G/DL)</content> Bilirubin.total 0.2-1.3 <content [facility] [Mass/volume] in styleCode="Bold"> Stephan hs Serum or Plasma Bilirubin Total Medical </content>1.1 Center MG/DL<content styleCode="Italic s"> (0.2-1.3 MG/DL)</content> Sodium 137-145 <content [facility] [Moles/volume] in styleCode="Bold"> [place] phs Serum or Plasma Sodium Medical </content>144 Center MEQ/L<content styleCode="Italic s"> (137-145 MEQ/L)</content> Creatinine 0.5-1.3 <content [facility] [Mass/volume] in styleCode="Bold"> Stephan hs Serum or Plasma Creatinine Medical </content>0.6 Center MG/DL<content styleCode="Italic s"> (0.5-1.3 MG/DL)</content> UNK 9-20 <content [facility] styleCode="Bold"> [place] BUN </content>9 Medical MG/DL<content Center styleCode="Italic s"> (9-20 MG/DL)</content> Carbon dioxide, 22-30 <content [facility] total styleCode="Bold"> [place] [Moles/volume] in Carbon Dioxide Medical Serum or Plasma </content>27 Center MEQ/L<content styleCode="Italic s"> (22-30 MEQ/L)</content> Chloride 98-107 <content [facility] [Moles/volume] in styleCode="Bold"> [place] phs Serum or Plasma Chloride Medical </content>105 Center MEQ/L<content styleCode="Italic s"> (98-107 MEQ/L)</content> Potassium 3.5-5.3 Below low <content [facility] [Moles/volume] in normal styleCode="Bold"> [place] phs Serum or Plasma Potassium Medical </content>3.3 Center MEQ/L L<content styleCode="Italic s"> (3.5-5.3 MEQ/L)</content> UNK > 60 <content [facility] styleCode="Bold"> [place] EGFR Medical </content>145 Center GFR<content styleCode="Italic s"> (> 60 GFR)</content> Calcium 8.4-10. Below low <content [facility] [Mass/volume] in 2 normal styleCode="Bold"> Stephan hs Serum or Plasma Calcium Medical </content>8.3 Center MG/DL L<content styleCode="Italic s"> (8.4-10.2 MG/DL)</content> Glucose 74-106 <content [facility] [Mass/volume] in styleCode="Bold"> Stephan hs Serum or Plasma Glucose Medical </content>81 Center MG/DL<content styleCode="Italic s"> (74-106 MG/DL)</content> Sodium 137-145 <content [facility] [Moles/volume] in styleCode="Bold"> [place] phs Serum or Plasma Sodium Medical </content>145 Center MEQ/L<content styleCode="Italic s"> (137-145 MEQ/L)</content> Glucose 74-106 <content [facility] [Mass/volume] in styleCode="Bold"> Stephan hs Serum or Plasma Glucose Medical </content>74 Center MG/DL<content styleCode="Italic s"> (74-106 MG/DL)</content> Creatinine 0.5-1.3 <content [facility] [Mass/volume] in styleCode="Bold"> Stephan hs Serum or Plasma Creatinine Medical </content>0.5 Center MG/DL<content styleCode="Italic s"> (0.5-1.3 MG/DL)</content> UNK 9-20 Below low <content [facility] normal styleCode="Bold"> [place] BUN </content>7 Medical MG/DL L<content Center styleCode="Italic s"> (9-20 MG/DL)</content> Carbon dioxide, 22-30 <content [facility] total styleCode="Bold"> [place] [Moles/volume] in Carbon Dioxide Medical Serum or Plasma </content>28 Center MEQ/L<content styleCode="Italic s"> (22-30 MEQ/L)</content> Chloride 98-107 <content [facility] [Moles/volume] in styleCode="Bold"> [facility] Serum or Plasma Chloride Medical </content>107 Center MEQ/L<content styleCode="Italic s"> (98-107 MEQ/L)</content> Potassium 3.5-5.3 <content [facility] [Moles/volume] in styleCode="Bold"> [facility] Serum or Plasma Potassium Medical </content>3.5 Center MEQ/L<content styleCode="Italic s"> (3.5-5.3 MEQ/L)</content> UNK > 60 <content [facility] styleCode="Bold"> [place] EGFR Medical </content>178 Center GFR<content styleCode="Italic s"> (> 60 GFR)</content> Calcium 8.4-10. Below low <content [facility] [Mass/volume] in 2 normal styleCode="Bold"> Stephan hs Serum or Plasma Calcium Medical </content>8.1 Center MG/DL L<content styleCode="Italic s"> (8.4-10.2 MG/DL)</content> ID Date Data Source Liver Profile 09/27/2018 06:15:00 AM EDT [facility] Name Value Range Interpretation Description Data Sup porting Code Source(s) Document(s ) Alanine 7-50 <content [facility] aminotransferase styleCode="Bold"> Stephan hs [Enzymatic Alanine Medical activity/volume] Aminotransferase Center in Serum or Plasma (ALT) </content>22 IU/L<content styleCode="Italic s"> (7-50 IU/L)</content> Aspartate 17-59 <content [facility] aminotransferase styleCode="Bold"> Stephan hs [Enzymatic Aspartate Medical activity/volume] Aminotransferase Center in Serum or Plasma (AST) </content>29 IU/L<content styleCode="Italic s"> (17-59 IU/L)</content> Alkaline 38-126 <content [facility] phosphatase styleCode="Bold"> [place] [Enzymatic Alkaline Medical activity/volume] Phosphatase (ALP) Cente r in Serum or Plasma </content>112 IU/L<content styleCode="Italic s"> (38-126 IU/L)</content> Bilirubin.total 0.2-1.3 <content [facility] [Mass/volume] in styleCode="Bold"> Stephan hs Serum or Plasma Bilirubin Total Medical </content>0.5 Center MG/DL<content styleCode="Italic s"> (0.2-1.3 MG/DL)</content> Albumin 3.5-5.0 <content [facility] [Mass/volume] in styleCode="Bold"> Stephan hs Serum or Plasma Albumin Medical </content>3.7 Center G/DL<content styleCode="Italic s"> (3.5-5.0 G/DL)</content> Bilirubin.total 0.2-1.3 Above high <content [facility] [Mass/volume] in normal styleCode="Bold"> Stephan hs Serum or Plasma Bilirubin Total Medical </content>1.8 Center MG/DL H<content styleCode="Italic s"> (0.2-1.3 MG/DL)</content> Alkaline 38-126 <content [facility] phosphatase styleCode="Bold"> [place] [Enzymatic Alkaline Medical activity/volume] Phosphatase (ALP) Cente r in Serum or Plasma </content>126 IU/L<content styleCode="Italic s"> (38-126 IU/L)</content> Alanine 7-50 <content [facility] aminotransferase styleCode="Bold"> Stephan hs [Enzymatic Alanine Medical activity/volume] Aminotransferase Center in Serum or Plasma (ALT) </content>23 IU/L<content styleCode="Italic s"> (7-50 IU/L)</content> Aspartate 17-59 Above high <content [facility] aminotransferase normal styleCode="Bold"> Stephan hs [Enzymatic Aspartate Medical activity/volume] Aminotransferase Center in Serum or Plasma (AST) </content>64 IU/L H<content styleCode="Italic s"> (17-59 IU/L)</content> Albumin 3.5-5.0 <content [facility] [Mass/volume] in styleCode="Bold"> Stephan hs Serum or Plasma Albumin Medical </content>4.2 Center G/DL<content styleCode="Italic s"> (3.5-5.0 G/DL)</content> UNK 0.0-0.3 <content [facility] styleCode="Bold"> [place] Bilirubin, Direct Medical </content>< 0.2 Center MG/DL<content styleCode="Italic s"> (0.0-0.3 MG/DL)</content> Alkaline 38-126 <content [facility] phosphatase styleCode="Bold"> [place] [Enzymatic Alkaline Medical activity/volume] Phosphatase (ALP) Cente r in Serum or Plasma </content>109 IU/L<content styleCode="Italic s"> (38-126 IU/L)</content> Alanine 7-50 <content [facility] aminotransferase styleCode="Bold"> Stephan hs [Enzymatic Alanine Medical activity/volume] Aminotransferase Center in Serum or Plasma (ALT) </content>17 IU/L<content styleCode="Italic s"> (7-50 IU/L)</content> Aspartate 17-59 <content [facility] aminotransferase styleCode="Bold"> Stephan hs [Enzymatic Aspartate Medical activity/volume] Aminotransferase Center in Serum or Plasma (AST) </content>43 IU/L<content styleCode="Italic s"> (17-59 IU/L)</content> Albumin 3.5-5.0 <content [facility] [Mass/volume] in styleCode="Bold"> Stephan hs Serum or Plasma Albumin Medical </content>3.8 Center G/DL<content styleCode="Italic s"> (3.5-5.0 G/DL)</content> UNK 0.0-0.3 <content [facility] styleCode="Bold"> [place] Bilirubin, Direct Medical </content>< 0.2 Center MG/DL<content styleCode="Italic s"> (0.0-0.3 MG/DL)</content> Bilirubin.total 0.2-1.3 <content [facility] [Mass/volume] in styleCode="Bold"> Stephan hs Serum or Plasma Bilirubin Total Medical </content>0.7 Center MG/DL<content styleCode="Italic s"> (0.2-1.3 MG/DL)</content> Bilirubin.total 0.2-1.3 Above high <content [facility] [Mass/volume] in normal styleCode="Bold"> Stephan hs Serum or Plasma Bilirubin Total Medical </content>1.6 Center MG/DL H<content styleCode="Italic s"> (0.2-1.3 MG/DL)</content> Alkaline 38-126 <content [facility] phosphatase styleCode="Bold"> [place] [Enzymatic Alkaline Medical activity/volume] Phosphatase (ALP) Cente r in Serum or Plasma </content>91 IU/L<content styleCode="Italic s"> (38-126 IU/L)</content> Alanine 7-50 <content [facility] aminotransferase styleCode="Bold"> Stephan hs [Enzymatic Alanine Medical activity/volume] Aminotransferase Center in Serum or Plasma (ALT) </content>21 IU/L<content styleCode="Italic s"> (7-50 IU/L)</content> Aspartate 17-59 <content [facility] aminotransferase styleCode="Bold"> Stephan hs [Enzymatic Aspartate Medical activity/volume] Aminotransferase Center in Serum or Plasma (AST) </content>49 IU/L<content styleCode="Italic s"> (17-59 IU/L)</content> Albumin 3.5-5.0 Below low <content [facility] [Mass/volume] in normal styleCode="Bold"> Stephan hs Serum or Plasma Albumin Medical </content>3.3 Center G/DL L<content styleCode="Italic s"> (3.5-5.0 G/DL)</content> Aspartate 17-59 <content [facility] aminotransferase styleCode="Bold"> Stephan hs [Enzymatic Aspartate Medical activity/volume] Aminotransferase Center in Serum or Plasma (AST) </content>41 IU/L<content styleCode="Italic s"> (17-59 IU/L)</content> Albumin 3.5-5.0 Below low <content [facility] [Mass/volume] in normal styleCode="Bold"> Stephan hs Serum or Plasma Albumin Medical </content>3.1 Center G/DL L<content styleCode="Italic s"> (3.5-5.0 G/DL)</content> Bilirubin.total 0.2-1.3 <content [facility] [Mass/volume] in styleCode="Bold"> Stephan hs Serum or Plasma Bilirubin Total Medical </content>1.2 Center MG/DL<content styleCode="Italic s"> (0.2-1.3 MG/DL)</content> Alkaline 38-126 <content [facility] phosphatase styleCode="Bold"> [place] [Enzymatic Alkaline Medical activity/volume] Phosphatase (ALP) Cente r in Serum or Plasma </content>85 IU/L<content styleCode="Italic s"> (38-126 IU/L)</content> Alanine 7-50 <content [facility] aminotransferase styleCode="Bold"> Stephan hs [Enzymatic Alanine Medical activity/volume] Aminotransferase Center in Serum or Plasma (ALT) </content>18 IU/L<content styleCode="Italic s"> (7-50 IU/L)</content> Aspartate 17-59 <content [facility] aminotransferase styleCode="Bold"> Stephan hs [Enzymatic Aspartate Medical activity/volume] Aminotransferase Center in Serum or Plasma (AST) </content>33 IU/L<content styleCode="Italic s"> (17-59 IU/L)</content> Albumin 3.5-5.0 <content [facility] [Mass/volume] in styleCode="Bold"> Stephan hs Serum or Plasma Albumin Medical </content>3.8 Center G/DL<content styleCode="Italic s"> (3.5-5.0 G/DL)</content> Bilirubin.total 0.2-1.3 <content [facility] [Mass/volume] in styleCode="Bold"> Stephan hs Serum or Plasma Bilirubin Total Medical </content>0.3 Center MG/DL<content styleCode="Italic s"> (0.2-1.3 MG/DL)</content> Alkaline 38-126 <content [facility] phosphatase styleCode="Bold"> [place] [Enzymatic Alkaline Medical activity/volume] Phosphatase (ALP) Cente r in Serum or Plasma </content>98 IU/L<content styleCode="Italic s"> (38-126 IU/L)</content> Alanine 7-50 <content [facility] aminotransferase styleCode="Bold"> Set[place] hs [Enzymatic Alanine Medical activity/volume] Aminotransferase Center in Serum or Plasma (ALT) </content>23 IU/L<content styleCode="Italic s"> (7-50 IU/L)</content> Aspartate 17-59 <content [facility] aminotransferase styleCode="Bold"> Stephan hs [Enzymatic Aspartate Medical activity/volume] Aminotransferase Center in Serum or Plasma (AST) </content>41 IU/L<content styleCode="Italic s"> (17-59 IU/L)</content> Bilirubin.total 0.2-1.3 <content [facility] [Mass/volume] in styleCode="Bold"> Stephan hs Serum or Plasma Bilirubin Total Medical </content>0.5 Center MG/DL<content styleCode="Italic s"> (0.2-1.3 MG/DL)</content> Alkaline 38-126 <content [facility] phosphatase styleCode="Bold"> [place] [Enzymatic Alkaline Medical activity/volume] Phosphatase (ALP) Cente r in Serum or Plasma </content>99 IU/L<content styleCode="Italic s"> (38-126 IU/L)</content> Alanine 7-50 <content [facility] aminotransferase styleCode="Bold"> Stephan hs [Enzymatic Alanine Medical activity/volume] Aminotransferase Center in Serum or Plasma (ALT) </content>19 IU/L<content styleCode="Italic s"> (7-50 IU/L)</content> Albumin 3.5-5.0 <content [facility] [Mass/volume] in styleCode="Bold"> Stephan hs Serum or Plasma Albumin Medical </content>3.7 Center G/DL<content styleCode="Italic s"> (3.5-5.0 G/DL)</content> Alanine 7-50 <content [facility] aminotransferase styleCode="Bold"> Stephan hs [Enzymatic Alanine Medical activity/volume] Aminotransferase Center in Serum or Plasma (ALT) </content>21 IU/L<content styleCode="Italic s"> (7-50 IU/L)</content> Aspartate 17-59 <content [facility] aminotransferase styleCode="Bold"> Stephan hs [Enzymatic Aspartate Medical activity/volume] Aminotransferase Center in Serum or Plasma (AST) </content>43 IU/L<content styleCode="Italic s"> (17-59 IU/L)</content> Bilirubin.total 0.2-1.3 <content [facility] [Mass/volume] in styleCode="Bold"> Stephan hs Serum or Plasma Bilirubin Total Medical </content>1.1 Center MG/DL<content styleCode="Italic s"> (0.2-1.3 MG/DL)</content> Alkaline 38-126 <content [facility] phosphatase styleCode="Bold"> [place] [Enzymatic Alkaline Medical activity/volume] Phosphatase (ALP) Cente r in Serum or Plasma </content>116 IU/L<content styleCode="Italic s"> (38-126 IU/L)</content> Albumin 3.5-5.0 <content [facility] [Mass/volume] in styleCode="Bold"> Stephan hs Serum or Plasma Albumin Medical </content>3.9 Center G/DL<content styleCode="Italic s"> (3.5-5.0 G/DL)</content> ID Date Data Source [id number] 09/27/2018 06:15:00 AM EDT [facility] Name Value Range Interpretation Description Data Sup porting Code Source(s) Document(s ) Magnesium 1.6-2.3 <content [facility] [Mass/volume] styleCode="[facility] [place] in Serum or d">Magnesium Medical Plasma </content>2.0 Center MG/DL<content styleCode="Zakia lics"> (1.6-2.3 MG/DL)</conten t> UNK 2.3-3.5 <content [facility] styleCode="[facility] [place] d">Globulin Medical </content>2.7 Center G/DL<content styleCode="Zakia lics"> (2.3-3.5 G/DL)</content > UNK >= 1.0 <content [facility] styleCode="[facility] [place] d">AG Ratio Medical </content>1.4 Center NM<content styleCode="Zakia lics"> (>= 1.0 NM)</content> Protein 6.3-8.2 <content [facility] [Mass/volume] styleCode="Mac [place] in Serum or d">Total Medical Plasma Protein Center </content>6.4 G/DL<content styleCode="Zakia lics"> (6.3-8.2 G/DL)</content > Phosphate 2.5-4.5 <content [facility] [Mass/volume] styleCode="[facility] [place] in Serum or d">Phosphorus Medical Plasma </content>3.6 Center MG/DL<content styleCode="Zakia lics"> (2.5-4.5 MG/DL)</conten t> UNK 4.2-5.8 <content [facility] styleCode="[facility] [place] d">Hemoglobin Medical A1C Center </content>5.1 %<content styleCode="Zakia lics"> (4.2-5.8 %)</content> Phosphate 2.5-4.5 <content [facility] [Mass/volume] styleCode="[facility] [place] in Serum or d">Phosphorus Medical Plasma </content>3.6 Center MG/DL<content styleCode="Zakia lics"> (2.5-4.5 MG/DL)</conten t> Magnesium 1.6-2.3 Below low normal <content [facility] [Mass/volume] styleCode="[facility] [place] in Serum or d">Magnesium Medical Plasma </content>1.1 Center MG/DL L<content styleCode="Zakia lics"> (1.6-2.3 MG/DL)</conten t> Natriuretic < 125 <content [facility] peptide.B styleCode="[facility] prohormone d">NT Pro BNP Medical N-Terminal </content>60.8 Center [Mass/volume] PG/ML<content in Serum or styleCode="Zakia Plasma lics"> (< 125 PG/ML)</conten t> Phosphate 2.5-4.5 <content [facility] [Mass/volume] styleCode="[facility] [place] in Serum or d">Phosphorus Medical Plasma </content>3.1 Center MG/DL<content styleCode="Zakia lics"> (2.5-4.5 MG/DL)</conten t> Magnesium 1.6-2.3 <content [facility] [Mass/volume] styleCode="Mac [place] in Serum or d">Magnesium Medical Plasma </content>1.7 Center MG/DL<content styleCode="Zakia lics"> (1.6-2.3 MG/DL)</conten t> UNK 2.3-3.5 <content [facility] styleCode="[facility] [place] d">Globulin Medical </content>2.8 Center G/DL<content styleCode="Zakia lics"> (2.3-3.5 G/DL)</content > UNK >= 1.0 <content [facility] styleCode="[facility] [place] d">AG Ratio Medical </content>1.2 Center NM<content styleCode="Zakia lics"> (>= 1.0 NM)</content> Protein 6.3-8.2 Below low normal <content [facility] [Mass/volume] styleCode="Mac [place] in Serum or d">Total Medical Plasma Protein Center </content>6.1 G/DL L<content styleCode="Zakia lics"> (6.3-8.2 G/DL)</content > UNK 2.3-3.5 <content [facility] styleCode="[facility] [place] d">Globulin Medical </content>2.7 Center G/DL<content styleCode="Zakia lics"> (2.3-3.5 G/DL)</content > UNK >= 1.0 <content [facility] styleCode="[facility] [place] d">AG Ratio Medical </content>1.1 Center NM<content styleCode="Zakia lics"> (>= 1.0 NM)</content> Protein 6.3-8.2 Below low normal <content [facility] [Mass/volume] styleCode="Mac [place] in Serum or d">Total Medical Plasma Protein Center </content>5.8 G/DL L<content styleCode="Zakia lics"> (6.3-8.2 G/DL)</content > Protein 6.3-8.2 <content [facility] [Mass/volume] styleCode="Mac [place] in Serum or d">Total Medical Plasma Protein Center </content>6.6 G/DL<content styleCode="Zakia lics"> (6.3-8.2 G/DL)</content > UNK 2.3-3.5 <content [facility] styleCode="[facility] [place] d">Globulin Medical </content>2.8 Center G/DL<content styleCode="Zakia lics"> (2.3-3.5 G/DL)</content > UNK >= 1.0 <content [facility] styleCode="[facility] [place] d">AG Ratio Medical </content>1.4 Center <content styleCode="Zakia lics"> (>= 1.0 )</content> Lactate 0.7-2.0 <content [facility] [Mass/volume] styleCode="[facility] [place] in Serum or d">Lactic Acid Medical Plasma </content>1.0 Center MMOLL<content styleCode="Zakia lics"> (0.7-2.0 MMOLL)</conten t> UNK >= 1.0 <content [facility] styleCode="[facility] [place] d">AG Ratio Medical </content>1.3 Center <content styleCode="Zakia lics"> (>= 1.0 )</content> Protein 6.3-8.2 <content [facility] [Mass/volume] styleCode="Mac [place] in Serum or d">Total Medical Plasma Protein Center </content>6.8 G/DL<content styleCode="Zakia lics"> (6.3-8.2 G/DL)</content > Phosphate 2.5-4.5 <content [facility] [Mass/volume] styleCode="Mac [place] in Serum or d">Phosphorus Medical Plasma </content>3.2 Center MG/DL<content styleCode="Zakia lics"> (2.5-4.5 MG/DL)</conten t> Magnesium 1.6-2.3 Below low normal <content [facility] [Mass/volume] styleCode="[facility] [place] in Serum or d">Magnesium Medical Plasma </content>1.4 Center MG/DL L<content styleCode="Zakia lics"> (1.6-2.3 MG/DL)</conten t> UNK 2.3-3.5 <content [facility] styleCode="[facility] [place] d">Globulin Medical </content>2.9 Center G/DL<content styleCode="Zakia lics"> (2.3-3.5 G/DL)</content > ID Date Data Source Urinalysis 09/26/2018 11:55:00 AM EDT [facility] Name Value Range Interpretation Description Data Sup porting Code Source(s) Document(s ) Color of Urine YELLOW <content [facility] styleCode="[facility] d">Color, Medical Urine Center </content>YELL OW <content styleCode="Zakia lics"> (YELLOW )</content> Glucose NEGATIVE <content [facility] [Mass/volume] styleCode="[facility] in Urine by d">Urine Medical Test strip Glucose Center </content>NEGA TIVE MG/DL<content styleCode="Zakia lics"> (NEGATIVE MG/DL)</conten t> UNK CLEAR <content [facility] styleCode="[facility] d">Urine Medical Clarity Center </content>COLIN R <content styleCode="Zakia lics"> (CLEAR )</content> Specific 1.015-1.02 <content [facility] gravity of 5 styleCode="[facility] Urine by Test d">Urine Medical strip Specific Center [place] </content>1.01 5 NM<content styleCode="Zakia lics"> (1.015-1.025 NM)</content> Ketones NEGATIVE <content [facility] [Mass/volume] styleCode="Mac [place] in Urine by d">Urine Medical Test strip Ketone Center </content>NEGA TIVE MG/DL<content styleCode="Zaika lics"> (NEGATIVE MG/DL)</conten t> UNK NEGATIVE <content [facility] styleCode="[facility] d">Urine Medical Bilirubin Center </content>NEGA TIVE <content styleCode="Zakia lics"> (NEGATIVE )</content> Hemoglobin NEGATIVE <content [facility] [Presence] in styleCode="[facility] Urine by Test d">Urine Blood Medical strip </content>NEGA Center TIVE <content styleCode="Zakia lics"> (NEGATIVE )</content> pH of Urine by 4.5-8.0 <content [facility] Test strip styleCode="Mac [place] d">Urine pH Medical </content>6.5 Center NM<content styleCode="Zakia lics"> (4.5-8.0 NM)</content> Protein NEGATIVE <content [facility] [Mass/volume] styleCode="Mac [place] in Urine by d">Urine Medical Test strip Protein Center </content>NEGA TIVE MG/DL<content styleCode="Zakia lics"> (NEGATIVE MG/DL)</conten t> Urobilinogen 0.2-1.0 <content [facility] [Units/volume] styleCode="Mac [place] in Urine by d">Urine Medical Test strip Urobilinogen Center </content>0.2 MG/DL<content styleCode="Zakia lics"> (0.2-1.0 MG/DL)</conten t> Nitrite NEGATIVE <content [facility] [Presence] in styleCode="[facility] Urine by Test d">Urine Medical strip Nitrite Center </content>NEGA TIVE <content styleCode="Zakia lics"> (NEGATIVE )</content> Leukocyte NEGATIVE <content [facility] esterase styleCode="Mac [facility] [Presence] in d">Urine Medical Urine by Test Leukocyte Center strip </content>NEGA TIVE <content styleCode="Zakia lics"> (NEGATIVE )</content> Glucose NEGATIVE <content [facility] [Mass/volume] styleCode="Mac [place] in Urine by d">Urine Medical Test strip Glucose Center </content>NEGA TIVE MG/DL<content styleCode="Zakia lics"> (NEGATIVE MG/DL)</conten t> UNK CLEAR <content [facility] styleCode="[facility] [place] d">Urine Medical Clarity Center </content>COLIN R <content styleCode="Zakia lics"> (CLEAR )</content> Color of Urine YELLOW <content [facility] styleCode="[facility] d">Color, Medical Urine Center </content>YELL OW <content styleCode="Zakia lics"> (YELLOW )</content> Hemoglobin NEGATIVE <content [facility] [Presence] in styleCode="Mac [place] Urine by Test d">Urine Blood Medical strip </content>NEGA Center TIVE <content styleCode="Zakia lics"> (NEGATIVE )</content> Specific 1.015-1.02 Below low normal <content [facility] gravity of 5 styleCode="Mac [facility]omes Urine by Test d">Urine Medical strip Specific Center [place] </content>1.01 0 NM L<content styleCode="Zakia lics"> (1.015-1.025 NM)</content> Ketones NEGATIVE <content [facility] [Mass/volume] styleCode="Mac [place] in Urine by d">Urine Medical Test strip Ketone Center </content>NEGA TIVE MG/DL<content styleCode="Zakia lics"> (NEGATIVE MG/DL)</conten t> UNK NEGATIVE <content [facility] styleCode="[facility] [place] d">Urine Medical Bilirubin Center </content>NEGA TIVE <content styleCode="Zakia lics"> (NEGATIVE )</content> Leukocyte NEGATIVE <content [facility] esterase styleCode="Mac [place] [Presence] in d">Urine Medical Urine by Test Leukocyte Center strip </content>NEGA TIVE <content styleCode="Zakia lics"> (NEGATIVE )</content> Nitrite NEGATIVE <content [facility] [Presence] in styleCode="Mac [place] Urine by Test d">Urine Medical strip Nitrite Center </content>NEGA TIVE <content styleCode="Zakia lics"> (NEGATIVE )</content> Urobilinogen 0.2-1.0 <content [facility] [Units/volume] styleCode="Mac [place] in Urine by d">Urine Medical Test strip Urobilinogen Center </content>0.2 MG/DL<content styleCode="Zakia lics"> (0.2-1.0 MG/DL)</conten t> Protein NEGATIVE <content [facility] [Mass/volume] styleCode="Mac [place] in Urine by d">Urine Medical Test strip Protein Center </content>NEGA TIVE MG/DL<content styleCode="Zakia lics"> (NEGATIVE MG/DL)</conten t> pH of Urine by 4.5-8.0 <content [facility] Test strip styleCode="Mac [place] d">Urine pH Medical </content>7.5 Center NM<content styleCode="Zakia lics"> (4.5-8.0 NM)</content> Glucose NEGATIVE <content [facility] [Mass/volume] styleCode="Mac [place] in Urine by d">Urine Medical Test strip Glucose Center </content>NEGA TIVE MG/DL<content styleCode="Zakia lics"> (NEGATIVE MG/DL)</conten t> UNK CLEAR <content [facility] styleCode="[facility] [place] d">Urine Medical Clarity Center </content>COLIN R <content styleCode="Zakia lics"> (CLEAR )</content> Color of Urine YELLOW <content [facility] styleCode="[facility] [place] d">Color, Medical Urine Center </content>YELL OW <content styleCode="Zakia lics"> (YELLOW )</content> Hemoglobin NEGATIVE <content [facility] [Presence] in styleCode="Mac Jacomes Urine by Test d">Urine Blood Medical strip </content>NEGA Center TIVE <content styleCode="Zakia lics"> (NEGATIVE )</content> Specific 1.015-1.02 <content [facility] gravity of 5 styleCode="Mac Jacomes Urine by Test d">Urine Medical strip Specific Center [place] </content>1.01 5 <content styleCode="Zakia lics"> (1.015-1.025 )</content> Ketones NEGATIVE <content [facility] [Mass/volume] styleCode="Mac [place] in Urine by d">Urine Medical Test strip Ketone Center </content>NEGA TIVE MG/DL<content styleCode="Zakia lics"> (NEGATIVE MG/DL)</conten t> UNK NEGATIVE <content [facility] styleCode="[facility] [place] d">Urine Medical Bilirubin Center </content>NEGA TIVE <content styleCode="Zakia lics"> (NEGATIVE )</content> Urobilinogen 0.2-1.0 <content [facility] [Units/volume] styleCode="Mac [place] in Urine by d">Urine Medical Test strip Urobilinogen Center </content>0.2 MG/DL<content styleCode="Zakia lics"> (0.2-1.0 MG/DL)</conten t> Protein NEGATIVE <content [facility] [Mass/volume] styleCode="Mac [place] in Urine by d">Urine Medical Test strip Protein Center </content>NEGA TIVE MG/DL<content styleCode="Zakia lics"> (NEGATIVE MG/DL)</conten t> pH of Urine by 4.5-8.0 <content [facility] Test strip styleCode="Mac [place] d">Urine pH Medical </content>7.0 Center <content styleCode="Zakia lics"> (4.5-8.0 )</content> Leukocyte NEGATIVE <content [facility] esterase styleCode="Mac [place] [Presence] in d">Urine Medical Urine by Test Leukocyte Center strip </content>NEGA TIVE <content styleCode="Zakia lics"> (NEGATIVE )</content> Nitrite NEGATIVE <content [facility] [Presence] in styleCode="Mac [place]omes Urine by Test d">Urine Medical strip Nitrite Center </content>NEGA TIVE <content styleCode="Zakia lics"> (NEGATIVE )</content> ID Date Data Source Microbiology 09/26/2018 10:15:00 AM EDT [facility] Name Value Range Interpretation Code Description Data Pebbles rce(s) Supporting Document(s ) UNK <item><content [facility] styleCode="Bold"> Medical Cent er Culture Report </content>
<t able><tbody><tr>< td>Specimen Number:</td><td>[id number]</td></tr ><tr><td>Sample Collection Date/Time: </td><td> 9 9:02 PM</td></tr><tr>< td>Specimen Source:</td><td>B LOOD</td></tr><tr ><td>Blood Culture:</td><td> Collection Plate Date: 07/04/2018 21:15 </td></tr><tr><td >Culture Status:</td><td>P reliminary </td></tr><tr><td >Culture Report:</td><td>C ulture in progress </td></tr></tbody ></table></item> UNK <item><content [facility] styleCode="Bold"> Medical Cent er Culture Status </content>
<t able><tbody><tr>< td>Specimen Number:</td><td>[id number]</td></tr ><tr><td>Sample Collection Date/Time: </td><td> 9 9:02 PM</td></tr><tr>< td>Specimen Source:</td><td>B LOOD</td></tr><tr ><td>Blood Culture:</td><td> Collection Plate Date: 07/04/2018 21:15 </td></tr><tr><td >Culture Report:</td><td>C ulture in progress </td></tr><tr><td >Culture Status:</td><td>P reliminary </td></tr></tbody ></table></item> UNK <item><content [facility] styleCode="Bold"> Medical Cent er Culture Status </content>
<t able><tbody><tr>< td>Specimen Number:</td><td>[id number]</td></tr ><tr><td>Sample Collection Date/Time: </td><td>04/27/20 18 5:40 AM</td></tr><tr>< td>Specimen Source:</td><td>B LOOD</td></tr><tr ><td>Blood Culture:</td><td> Collection Plate Date: 04/27/2018 05:45 </td></tr><tr><td >Culture Report:</td><td>C ulture in progress </td></tr><tr><td >Culture Status:</td><td>P reliminary </td></tr></tbody ></table></item> UNK <item><content [facility] styleCode="Bold"> Medical [facility] er Culture Report </content>
<t able><tbody><tr>< td>Specimen Number:</td><td>[id number]</td></tr ><tr><td>Sample Collection Date/Time: </td><td>04/27/20 18 5:40 AM</td></tr><tr>< td>Specimen Source:</td><td>B LOOD</td></tr><tr ><td>Blood Culture:</td><td> Collection Plate Date: 04/27/2018 05:45 </td></tr><tr><td >Culture Status:</td><td>P reliminary </td></tr><tr><td >Culture Report:</td><td>C ulture in progress </td></tr></tbody ></table></item> UNK <item><content [facility] styleCode="Bold"> Medical Cent er Culture Report </content>
<t able><tbody><tr>< td>Specimen Number:</td><td>[id number]</td></tr ><tr><td>Sample Collection Date/Time: </td><td> 9 10:15 AM</td></tr><tr>< td>Specimen Source:</td><td>B LOOD</td></tr><tr ><td>Culture Report:</td><td>C ulture in progress </td></tr><tr><td >Blood Culture:</td><td> Collection Plate Date: 09/26/2018 10:24 </td></tr><tr><td >Culture Status:</td><td>P reliminary </td></tr></tbody ></table></item> UNK <item><content [facility] styleCode="Bold"> Medical Cent er Culture Status </content>
<t able><tbody><tr>< td>Specimen Number:</td><td>[id number]</td></tr ><tr><td>Sample Collection Date/Time: </td><td> 10:15 AM</td></tr><tr>< td>Specimen Source:</td><td>B LOOD</td></tr><tr ><td>Blood Culture:</td><td> Collection Plate Date: 09/26/2018 10:24 </td></tr><tr><td >Culture Report:</td><td>C ulture in progress </td></tr><tr><td >Culture Status:</td><td>P reliminary </td></tr></tbody ></table></item> UNK <item><content [facility] styleCode="Bold"> Medical Cent er Culture Status </content>
<t able><tbody><tr>< td>Specimen Number:</td><td>[id number]</td></tr ><tr><td>Sample Collection Date/Time: </td><td> 9 10:15 AM</td></tr><tr>< td>Specimen Source:</td><td>B LOOD</td></tr><tr ><td>Culture Report:</td><td>C ulture in progress </td></tr><tr><td >Culture Status:</td><td>P reliminary </td></tr><tr><td >Blood Culture:</td><td> Collection Plate Date: 09/26/2018 10:24 </td></tr></tbody ></table></item> UNK <item><content [facility] styleCode="Bold"> Medical [facility] er Culture Report </content>
<t able><tbody><tr>< td>Specimen Number:</td><td>[id number]</td></tr ><tr><td>Sample Collection Date/Time: </td><td> 10:15 AM</td></tr><tr>< td>Specimen Source:</td><td>B LOOD</td></tr><tr ><td>Blood Culture:</td><td> Collection Plate Date: 09/26/2018 10:24 </td></tr><tr><td >Culture Status:</td><td>P reliminary </td></tr><tr><td >Culture Report:</td><td>C ulture in progress </td></tr></tbody ></table></item> ID Date Data Source [id number] 09/03/2018 06:32:00 AM EDT [facility] Name Value Range Interpretation Description Data Sup porting Code Source(s) Document(s ) Glucose Lvl 101 65-99 HI [place] mg/dL [facility] BUN 10.0 7.0-21.0 NO [place] mg/dL [facility] Creatinine 0.53 0.70-1.2 LO [place] mg/dL 0 [facility] BUN/Creat 18.9 7.0-29.0 [facility] Sodium Lvl 139 136-146 NO [facility] mmol/L [facility] Potassium Lvl 3.2 3.5-5.1 LO [facility] mmol/L [facility] Chloride 101 98-109 [facility] CO2 27 17-33 NO [facility] mmol/L [facility] AGAP 11 5-15 NO [facility] Calcium Lvl 9.1 8.3-10.2 NO [facility] mg/dL [facility] ID Date Data Source [id number] 09/03/2018 06:32:00 AM EDT [facility] Name Value Range Interpretation Description Data Sup porting Code Source(s) Document(s ) Magnesium 1.6 mg/dL 1.6-2.5 NO [facility] ID Date Data Source [id number] 09/03/2018 06:32:00 AM EDT [facility] Name Value Range Interpretation Code Description Data Pebbles rce(s) Supporting Document(s ) eGFR-AA >60 >=60 NO [facility]/min/[address] [place] [address] Added by Discern Rule GLB_ADD_GFR_BMP eGFR-CHERRI >60 mL/min/1.73m2 >=60 NO [facility] Added by Discern Rule [id number]_[id number] ID Date Data Source [id number] 09/03/2018 07:14:00 AM EDT [facility] Name Value Range Interpretation Description Data Sup porting Code Source(s) Document(s ) RBC Morph Normocyt/ AB [facility] Anisocyte NO [facility] Microcyte NO [facility] Macrocyte NO [facility] Elliptocyte NO [facility] Hypochrom NO [facility] Plt Estimate NO [facility] RBC Morphology added by Discern Rule GLB _CBC_AUTO_REFLEX ID Date Data Source [id number] 09/03/2018 06:23:00 AM EDT [facility] Name Value Range Interpretation Description Data Sup porting Code Source(s) Document(s ) WBC 5.7 4.5-11.0 NO [place] x10(3)/[facility] RBC 3.80 4.50-5.90 LO [place] x10(6)/[facility] Hgb 10.3 13.5-17.5 LO [place] gm/dL [facility] Hct 32.2 % 41.0-53.0 [facility] MCV 85 fL 80-100 NO [facility] MCH 27.0 pg 26.0-34.0 NO [facility] MCHC 31.8 31.0-37.0 NO [place] gm/dL [facility] RDW 25.3 % 11.5-14.5 [facility] Platelet 305 150-350 [facility] MPV 7.5 fL 7.4-10.4 NO [facility] ID Date Data Source [id number] 09/03/2018 06:23:00 AM EDT [facility] Name Value Range Interpretation Description Data Sup porting Code Source(s) Document(s ) Neut Auto 63.2 % 40.0-70.0 NO [facility] Lymph Auto 23.6 % 22.0-44.0 NO [facility] [place] Auto 9.1 % 4.0-11.0 NO [facility] Eos Auto 2.8 % 0.0-8.0 NO [facility] Baso Auto 1.3 % 0.0-3.0 NO [facility] Neut 3.6 1.8-7.7 NO [place] Absolute x10(3)/[facility] Lymph 1.3 1.0-4.8 NO [place] Absolute x10(3)/[facility] [place] 0.5 0.2-1.2 NO [place] Absolute x10(3)/[facility] Eos Absolute 0.2 0.0-0.9 NO [place] x10(3)/[facility] Baso 0.1 0.0-0.3 NO [place] Absolute x10(3)/[facility] ID Date Data Source [id number] 09/02/2018 10:57:00 AM EDT [facility] Name Value Range Interpretation Code Description Data Pebbles rce(s) Supporting Document(s ) eGFR-AA >60 >=60 NO [facility] mL/min/[address] eGFR-CHERRI >60 >=60 NO [facility] mL/min/[address] Added by Discern Rule [id number] ID Date Data Source [id number] 09/02/2018 10:57:00 AM EDT [facility] Name Value Range Interpretation Description Data Sup porting Code Source(s) Document(s ) Glucose Lvl 97 mg/dL 65-99 NO [facility] BUN 10.0 7.0-21.0 NO [place] mg/dL [facility] Creatinine 0.54 0.70-1.2 LO [place] mg/dL 0 [facility] BUN/Creat 18.5 7.0-29.0 NO [place] Ratio ratio [facility] Sodium Lvl 140 136-146 NO [place] mmol/L [facility] Potassium Lvl 2.9 3.5-5.1 LO [place] mmol/L [facility] Chloride 102 98-109 NO [place] mmol/L [facility] CO2 27 17-33 NO [place] mmol/L [facility] AGAP 11 5-15 NO [facility] Calcium Lvl 8.2 8.3-10.2 LO [place] mg/dL [facility] ID Date Data Source [id number] 09/02/2018 10:57:00 AM EDT [facility] Name Value Range Interpretation Description Data Sup porting Code Source(s) Document(s ) Magnesium 1.4 mg/dL 1.6-2.5 [facility] ID Date Data Source [id number] 09/02/2018 06:19:00 AM EDT [facility] Name Value Range Interpretation Description Data Sup porting Code Source(s) Document(s ) UA WBC None Seen NO [facility] UA RBC None Seen NO [facility] UA Bacteria None Seen AB [facility] UA Microscopic added by Discern Rulekaity to an Abnormal Macroscopic Result. ID Date Data Source [id number] 09/02/2018 06:19:00 AM EDT [facility] Name Value Range Interpretation Description Data Sup porting Code Source(s) Document(s ) UA Color Yellow NO [facility] UA Appear Clear NO [facility] UA pH 5.0-8.0 [facility] UA Spec Grav 1.015 1.005-1.030 NO [facility] UA Glucose Negative NO [facility] UA Ketones Negative NO [facility] UA Urobilinogen 0.2-1.0 NO [facility] UA Bili Negative NO [facility] UA Blood Negative NO [facility] UA Protein Negative AB [facility] UA Nitrite Negative NO [facility] UA Leuk Est Negative NO [facility] ID Date Data Source [id number] 09/02/2018 06:08:00 AM EDT [facility] Name Value Range Interpretation Description Data Sup porting Code Source(s) Document(s ) U Amph Not Detected NO [facility] U [place] Not Detected NO [facility] Result created by Discern rule.Substance of abuse cutofflevels:Amphetamine...........................1000mA/minBarbiturate........ ....................300mA/minBenzodiazepine.........................200mA /minCannibinoid.............................50mA/minCocaine..................... ...........300mA/minOpiates................................300 mA/minPhencyclidine(PCP).....................25mA/minMethadone.................. ............300mA/minPropoxypene............................300 mA/minPleasenote: This is a urine screen ing test only.Positive results are presumptiveand are not confirmed by a secondary method. Unconfirmed screening results areto be used only for medical p urposes.Result created by Discern rule. U Benzodia Scr Not Detected NA [facility] Result created by Discern rule.Substance of abuse cutofflevels:Amphetamine...........................1000mA/minBarbiturate........ ....................300mA/minBenzodiazepine.........................200mA /minCannibinoid.............................50mA/minCocaine..................... ...........300mA/minOpiates................................300 mA/minPhencyclidine(PCP).....................25mA/minMethadone.................. ............300mA/minPropoxypene............................300 mA/minPleasenote: This is a urine screen ing test only.Positive results are presumptiveand are not confirmed by a secondary method. Unconfirmed screening results areto be used only for medical p urposes.Result created by Discern rule.Result created by Discern rule. U Cannab Scr Not Detected NO [facility] Result created by Discern rule.Substance of abuse cutofflevels:Amphetamine...........................1000mA/minBarbiturate........ ....................300mA/minBenzodiazepine.........................200mA /minCannibinoid.............................50mA/minCocaine..................... ...........300mA/minOpiates................................300 mA/minPhencyclidine(PCP).....................25mA/minMethadone.................. ............300mA/minPropoxypene............................300 mA/minPleasenote: This is a urine screen ing test only.Positive results are presumptiveand are not confirmed by a secondary method. Unconfirmed screening results areto be used only for medical p urposes.Result created by Discern rule.Result created by Discern rule.Result created by Discern rule. U Cocaine Scr Not Detected NO [facility] Result created by Discern rule.Substance of abuse cutofflevels:Amphetamine...........................1000mA/minBarbiturate........ ....................300mA/minBenzodiazepine.........................200mA /minCannibinoid.............................50mA/minCocaine..................... ...........300mA/minOpiates................................300 mA/minPhencyclidine(PCP).....................25mA/minMethadone.................. ............300mA/minPropoxypene............................300 mA/minPleasenote: This is a urine screen ing test only.Positive results are presumptiveand are not confirmed by a secondary method. Unconfirmed screening results areto be used only for medical p urposes.Result created by Discern rule.Result created by Discern rule.Result created by Discern rule.Result created by Discern rule. U Opiate Scr Not Detected NO [facility] U Methadone Not Detected NO [facility] Result created by Discern rule.Substance of abuse cutofflevels:Amphetamine...........................1000mA/minBarbiturate........ ....................300mA/minBenzodiazepine.........................200mA /minCannibinoid.............................50mA/minCocaine..................... ...........300mA/minOpiates................................300 mA/minPhencyclidine(PCP).....................25mA/minMethadone.................. ............300mA/minPropoxypene............................300 mA/minPleasenote: This is a urine screen ing test only.Positive results are presumptiveand are not confirmed by a secondary method. Unconfirmed screening results areto be used only for medical p urposes.Result created by Discern rule.Result created by Discern rule.Result created by Discern rule.Result created by Discern rule.Result created b y Discern rule. U Phencyclidine Not Detected NO [facility] U Propoxyphene Not Detected NA [facility] ID Date Data Source [id number] 09/01/2018 04:34:00 PM EDT [facility] Name Value Range Interpretation Description Data Sup porting Code Source(s) Document(s ) WBC 5.7 4.5-11.0 NO [place] x10(3)/[facility] RBC 3.59 4.50-5.90 [facility] Hgb 9.7 gm/dL 13.5-17.5 [facility] Hct 31.3 % 41.0-53.0 [facility] MCV 87 fL 80-100 [facility] MCH 27.2 pg 26.0-34.0 [facility] MCHC 31.1 31.0-37.0 NO [facility] gm/[facility] RDW 25.8 % 11.5-14.5 [facility] Platelet [phone] NO [facility] x10(3)/[facility] MPV 7.3 fL 7.4-10.4 [facility] ID Date Data Source [id number] 09/01/2018 04:34:00 PM EDT [facility] Name Value Range Interpretation Description Data Sup porting Code Source(s) Document(s ) Neut Auto 54.6 % 40.0-70.0 NO [facility] Lymph Auto 33.7 % 22.0-44.0 NO [facility] [place] Auto 8.2 % 4.0-11.0 [facility] Eos Auto 3.2 % 0.0-8.0 NO [facility] Baso Auto 0.3 % 0.0-3.0 NO [facility] Neut 3.1 1.8-7.7 NO [place] Absolute x10(3)/[facility] Lymph 1.9 1.0-4.8 NO [place] Absolute x10(3)/[facility] Platte 0.5 0.2-1.2 NO [place] Absolute x10(3)/[facility] Eos Absolute 0.2 0.0-0.9 NO [place] x10(3)/[facility] Baso 0.0 0.0-0.3 NO [place] Absolute x10(3)/[facility] ID Date Data Source [id number] 09/01/2018 04:58:00 PM EDT [facility] Name Value Range Interpretation Description Data Sup porting Code Source(s) Document(s ) Amylase Lvl 69 IU/L 26-121 NO [facility] ID Date Data Source [id number] 09/01/2018 04:58:00 PM EDT [facility] Name Value Range Interpretation Description Data Sup porting Code Source(s) Document(s ) Magnesium 1.4 mg/dL 1.6-2.5 LO [facility] ID Date Data Source [id number] 09/01/2018 04:58:00 PM EDT [facility] Name Value Range Interpretation Code Description Data Pebbles rce(s) Supporting Document(s ) Lipase Lvl 29 IU/L 10-59 NO [facility] ID Date Data Source [id number] 09/01/2018 04:59:00 PM EDT [facility] Name Value Range Interpretation Description Data Sup porting Code Source(s) Document(s ) Acetaminoph <10.0 10.0-30. LO [facility] Lvl mcg/mL 0 [facility] ID Date Data Source [id number] 09/01/2018 05:02:00 PM EDT [facility] Name Value Range Interpretation Code Description Data Pebbles rce(s) Supporting Document(s ) eGFR-AA >60 >=60 NO [facility] mL/min/1.7 - [address] eGFR-CHERRI >60 >=60 NO [facility] mL/min/1.[address] Added by Discern Rule [id number] ID Date Data Source [id number] 09/01/2018 05:02:00 PM EDT [facility] Name Value Range Interpretation Description Data Sup porting Code Source(s) Document(s ) Glucose Lvl 117 65-99 HI [place] mg/dL [facility] BUN 13.0 7.0-21.0 NO [place] mg/dL [facility] Creatinine 0.67 0.70-1.2 LO [place] mg/dL 0 [facility] BUN/Creat 19.4 7.0-29.0 NO [place] Ratio ratio [facility] Sodium Lvl 145 136-146 NO [place] mmol/L [facility] Potassium Lvl 2.7 3.5-5.1 CR [place] mmol/L [facility] Chloride 107 98-109 NO [place] mmol/L [facility] CO2 26 17-33 NO [place] mmol/L [facility] AGAP 12 5-15 NO [facility] Calcium Lvl 8.7 8.3-10.2 NO [place] mg/dL [facility] Total Protein 6.8 6.0-8.3 NO [place] gm/dL [facility] Albumin Lvl 3.5 3.7-5.3 LO [place] gm/dL [facility] Glob 3.3 2.0-4.5 NO [place] gm/dL [facility] A/G Ratio 1.1 1.0-2.2 NO [place] ratio [facility] Bili Total 0.3 0.4-1.1 LO [place] mg/dL [facility] Alk Phos 110 IU/L 30-125 NO [facility] AST 37 IU/L 10-35 HI [facility] ALT 19 IU/L 8-40 NO [facility] Critical Value Results Called to devonte bill ams with read back at 09/01/201817:02:04 EDT. ID Date Data Source [id number] 09/01/2018 04:59:00 PM EDT [facility] Name Value Range Interpretation Description Data Sup porting Code Source(s) Document(s ) Salicylate Lvl <4.0 4.0-29.9 LO [place] mg/dL [facility] ID Date Data Source [id number] 09/01/2018 05:24:00 PM EDT [facility] Name Value Range Interpretation Description Data Sup porting Code Source(s) Document(s ) RBC Morph Normocyt/ AB [facility] Anisocyte NO [facility] Microcyte NO [facility] Macrocyte NO [facility] Elliptocyte NO [facility] Hypochrom NO [facility] Plt Estimate NO [facility] Poik NO [facility] RBC Morphology added by Discern Rule [id number] ID Date Data Source [id number] 09/01/2018 04:59:00 PM EDT [facility] Name Value Range Interpretation Description Data Sup porting Code Source(s) Document(s ) Ethanol Lvl 310 mg/dL <=9 HI [facility] Ethanol values less than or equal to 9 m g/dL are considered Negative. ID Date Data Source [id number] 09/01/2018 04:59:00 PM EDT [facility] Name Value Range Interpretation Description Data Sup porting Code Source(s) Document(s ) Troponin- 0.01 0.02-0.05 LO [place] I ng/mL [facility] ID Date Data Source [id number] 09/01/2018 04:58:00 PM EDT [facility] Name Value Range Interpretation Description Data Sup porting Code Source(s) Document(s ) Phosphorus 2.2 mg/dL 2.5-5.0 [facility] ID Date Data Source [id number] 07/04/2018 09:02:00 PM [facility] Name Value Range Interpretation Description Data Sup porting Code Source(s) Document(s ) Erythrocyte < 20 Above high normal <content [facility] sedimentation styleCode="Bold" [place] rate by >Erythrocyte [facility] method Rate (ESR) </content>45 MM/hr H<content styleCode="Itali cs"> (< 20 MM/hr)</content> C reactive < 3.0 Above high normal <content [facility] protein styleCode="Bold" [place] [Mass/volume] in >C-Reactive Medical Serum or Plasma Protein Center </content>> 15.00 MG/L H<content styleCode="Itali cs"> (< 3.0 MG/L)</content> ID Date Data Source LIPID 05/24/2018 09:50:00 PM [facility] Name Value Range Interpretation Description Data Sup porting Code Source(s) Document(s ) Cholesterol -<200 <content [facility] [Mass/volume] in styleCode="Mac [place] Serum or Plasma d">Cholesterol Medical </content>143 Center MG/DL<content styleCode="Zakia lics"> (-<200 MG/DL)</conten t> UNK > 60 Below low normal <content [facility] styleCode="Mac [place] d">HDL- Medical Cholesterol Center </content>38 MG/DL L<content styleCode="Zakia lics"> (> 60 MG/DL)</conten t> Triglyceride < 150 <content [facility] [Mass/volume] in styleCode="Mac [place] Serum or Plasma d">Triglycerid Medical es Center </content>108 MG/DL<content styleCode="Zakia lics"> (< 150 MG/DL)</conten t> UNK < 100 <content [facility] styleCode="Mac [place] d">LDL-Cholest Medical candy Center </content>83 MG/DL<content styleCode="Zakia lics"> (< 100 MG/DL)</conten t> Triglyceride < 150 <content [facility] [Mass/volume] in styleCode="Mac [place] Serum or Plasma d">Triglycerid Medical es Center </content>105 MG/DL<content styleCode="Zakia lics"> (< 150 MG/DL)</conten t> UNK > 60 <content [facility] styleCode="Mac [place] d">HDL- Medical Cholesterol Center </content>78 MG/DL<content styleCode="Zakia lics"> (> 60 MG/DL)</conten t> Cholesterol -<200 <content [facility] [Mass/volume] in styleCode="Mac [place] Serum or Plasma d">Cholesterol Medical </content>161 Center MG/DL<content styleCode="Zakia lics"> (-<200 MG/DL)</conten t> UNK < 100 <content [facility] styleCode="Mac [place] d">LDL-[facility] candy Center </content>62 MG/DL<content styleCode="Zakia lics"> (< 100 MG/DL)</conten t> Procedure Social History Code Duration Value Status Description Data Source(s ) Smoking 03/03/2020 Former Smoker completed Former Smoker [facility] 08:[facility] Smoking 03/03/2020 Former Smoker completed Former Sm[facility] 08:05:00 PM [facility] Smoking 03/03/2020 Former Smoker completed Former Smoker [facility] 08:02:00 PM [facility] EDT Smoking 03/01/2020 Former Smoker completed Former Sm[facility] 01:11:00 PM [facility] EDT Smoking 03/01/2020 Former Smoker completed Former Smoker [facility] 12:40:00 PM [facility] EDT Smoking 03/01/2020 Former Smoker completed Former Smoker [facility] 12:33:00 PM [facility] EDT Smoking 02/29/2020 Former Smoker completed Former Smoker [facility] 01:00:00 PM [facility] EDT Smoking 02/29/2020 Former Smoker completed Former Smoker [facility] 12:40:00 PM [facility] EDT Smoking 02/29/2020 Former Smoker completed Former Smoker [facility] 12:40:00 PM [facility] EDT Smoking 02/29/2020 Former Smoker completed Former Sm[facility] 05:13:00 AM [facility] EDT Smoking 02/28/2020 Former Smoker completed Former Smoker [facility] 08:51:00 PM [facility] EDT Smoking 02/28/2020 Former Smoker completed Former Smoker [facility] 08:51:00 PM [facility] EDT Smoking 02/28/2020 Former Smoker completed Former Smoker [facility] 11:30:00 AM [facility] EDT Smoking 02/28/2020 Former Smoker completed Former Smoker [facility] 11:24:00 AM [facility] EDT Smoking 02/28/2020 Former Smoker completed Former Smoker [facility] 11:24:00 AM [facility] EDT Smoking 02/27/2020 Former Smoker completed Former Smoker [facility] 11:35:00 PM [facility] EDT Smoking 02/27/2020 Former Smoker completed Former Smoker [facility] 08:29:00 PM [facility] EDT Smoking 02/27/2020 Former Smoker completed Former Smoker [facility] 08:27:00 PM [facility] EDT Smoking 02/10/2020 Former Smoker completed Former Smoker [facility] 04:52:00 AM [facility] EDT Smoking 02/09/2020 Former Smoker completed Former Smoker [facility] 09:51:00 PM [facility] EDT Smoking 02/09/2020 Former Smoker completed Former Smoker [facility] 09:49:00 PM [facility] EDT Smoking 02/09/2020 Former Smoker completed Former Smoker [facility] 06:13:00 AM [facility] EDT Smoking 02/09/2020 Former Smoker completed Former Smoker [facility] 03:00:00 AM [facility] EDT Smoking 02/09/2020 Former Smoker completed Former Smoker [facility] 02:50:00 AM [facility] EDT Smoking 02/04/2020 Former Smoker completed Former Smoker [facility] 11:50:00 AM [facility] EDT Smoking 02/04/2020 Former Smoker completed Former Smoker [facility] 11:29:00 AM [facility] EDT Smoking 02/04/2020 Former Smoker completed Former Smoker [facility] 11:26:00 AM [facility] EDT Smoking 01/25/2020 Former Smoker completed Former Smoker [facility] 06:44:00 PM [facility] EDT Smoking 01/25/2020 Former Smoker completed Former Smoker [facility] 06:23:00 PM [facility] EDT Smoking 01/25/2020 Former Smoker completed Former Smoker [facility] 06:20:00 PM [facility] EDT Smoking 01/24/2020 Former Smoker completed Former Smoker [facility] 08:50:00 PM [facility] EDT Smoking 01/24/2020 Former Smoker completed Former Smoker [facility] 01:56:00 PM [facility] EDT Smoking 01/24/2020 Former Smoker completed Former Smoker [facility] 01:45:00 PM [facility] EDT Smoking 01/20/2020 Former Smoker completed Former Smoker [facility] 05:45:00 PM [facility] EDT Smoking 01/20/2020 Former Smoker completed Former Smoker [facility] 03:50:00 PM [facility] EDT Smoking 01/19/2020 Former Smoker completed Former Smoker [facility] 11:23:00 AM [facility] EDT Smoking 01/19/2020 Former Smoker completed Former Smoker [facility] 11:23:00 AM [facility] EDT Smoking 01/19/2020 Former Smoker completed Former Smoker [facility] 11:17:00 AM [facility] EDT Smoking 01/18/2020 Former Smoker completed Former Smoker [facility] 10:20:00 PM [facility] EDT Smoking 01/18/2020 Former Smoker completed Former Smoker [facility] 10:02:00 PM [facility] EDT Smoking 01/18/2020 Former Smoker completed Former Smoker [facility] 09:47:00 PM [facility] EDT Smoking 01/06/2020 Former Smoker completed Former Smoker [facility] 01:36:00 PM [facility] EDT Smoking 01/06/2020 Former Smoker completed Former Smoker [facility] 01:13:00 PM [facility] EDT Smoking 01/05/2020 Former Smoker completed Former Smoker [facility] 09:21:00 PM [facility] EDT Smoking 01/05/2020 Former Smoker completed Former Smoker [facility] 09:00:00 PM [facility] EDT Smoking 01/05/2020 Former Smoker completed Former Smoker [facility] 08:52:00 PM [facility] EDT Smoking 01/05/2020 Former Smoker completed Former Smoker [facility] 03:29:00 PM [facility] EDT Smoking 01/05/2020 Former Smoker completed Former Smoker [facility] 02:32:00 PM [facility] EDT Smoking 01/03/2020 Former Smoker completed Former Smoker [facility] 09:19:00 PM [facility] EDT Smoking 01/03/2020 Former Smoker completed Former Smoker [facility] 08:58:00 PM [facility] EDT Smoking 01/03/2020 Former Smoker completed Former Smoker [facility] 08:54:00 PM [facility] EDT Smoking 12/30/2019 Former Smoker completed Former Smoker [facility] 09:04:00 PM [facility] EDT Smoking 12/30/2019 Former Smoker completed Former Smoker [facility] 06:00:00 PM [facility] EDT Smoking 12/30/2019 Former Smoker completed Former Smoker [facility] 05:18:00 PM [facility] EDT Smoking 12/29/2019 Former Smoker completed Former Smoker [facility] 06:21:00 PM [facility] EDT Smoking 12/29/2019 Former Smoker completed Former Smoker [facility] 04:10:00 PM [facility] EDT Smoking 12/29/2019 Former Smoker completed Former Smoker [facility] 03:50:00 PM [facility] EDT Smoking 12/29/2019 Former Smoker completed Former Smoker [facility] 03:38:00 AM [facility] EDT Smoking 12/28/2019 Former Smoker completed Former Smoker [facility] 10:41:00 PM [facility] EDT Smoking 12/28/2019 Former Smoker completed Former Smoker [facility] 10:38:00 PM [facility] EDT Smoking 12/28/2019 Former Smoker completed Former Smoker [facility] 01:40:00 AM [facility] EDT Smoking 12/28/2019 Former Smoker completed Former Smoker [facility] 01:32:00 AM [facility] EDT Smoking 12/27/2019 Former Smoker completed Former Smoker [facility] 07:45:00 PM [facility] EDT Smoking 12/27/2019 Former Smoker completed Former Smoker [facility] 06:39:00 PM [facility] EDT Smoking 12/27/2019 Former Smoker completed Former Smoker [facility] 06:30:00 PM [facility] EDT Smoking 12/27/2019 Former Smoker completed Former Smoker [facility] 12:12:00 PM [facility] EDT Smoking 12/27/2019 Former Smoker completed Former Smoker [facility] 12:10:00 PM [facility] EDT Smoking 12/27/2019 Former Smoker completed Former Smoker [facility] 12:07:00 PM [facility] EDT Smoking 12/24/2019 Former Smoker completed Former Smoker [facility] 11:25:00 PM [facility] EDT Smoking 12/24/2019 Former Smoker completed Former Smoker [facility] 11:19:00 PM [facility] EDT Smoking 12/22/2019 Former Smoker completed Former Smoker [facility] 04:56:00 PM [facility] EDT Smoking 12/22/2019 Former Smoker completed Former Smoker [facility] 04:48:00 PM [facility] EDT Smoking 12/22/2019 Former Smoker completed Former Smoker [facility] 04:47:00 PM [facility] EDT Smoking 12/20/2019 Former Smoker completed Former Smoker [facility] 09:28:00 PM [facility] EDT Smoking 12/20/2019 Former Smoker completed Former Smoker [facility] 09:17:00 PM [facility] EDT Smoking 12/20/2019 Former Smoker completed Former Smoker [facility] 08:58:00 PM [facility] EDT Smoking 12/17/2019 Former Smoker completed Former Smoker [facility] 11:41:00 PM [facility] EDT Smoking 12/17/2019 Former Smoker completed Former Smoker [facility] 04:43:00 PM [facility] EDT Smoking 12/17/2019 Former Smoker completed Former Smoker [facility] 04:39:00 PM [facility] EDT Smoking 12/16/2019 Former Smoker completed Former Smoker [facility] 09:00:00 PM [facility] EDT Smoking 12/16/2019 Former Smoker completed Former Smoker [facility] 07:26:00 PM [facility] EDT Smoking 12/16/2019 Former Smoker completed Former Smoker [facility] 03:51:00 PM [facility] EDT Smoking 12/16/2019 Former Smoker completed Former Smoker [facility] 02:14:00 PM [facility] EDT Smoking 12/16/2019 Former Smoker completed Former Smoker [facility] 02:11:00 PM [facility] EDT Smoking 12/14/2019 Former Smoker completed Former Smoker [facility] 03:51:00 PM [facility] EDT Smoking 12/14/2019 Former Smoker completed Former Smoker [facility] 03:01:00 PM [facility] EDT Smoking 12/14/2019 Former Smoker completed Former Smoker [facility] 03:00:00 PM [facility] EDT Smoking 12/10/2019 Former Smoker completed Former Smoker [facility] 06:52:00 PM [facility] EDT Smoking 12/10/2019 Former Smoker completed Former Smoker [facility] 06:40:00 PM [facility] EDT Smoking 12/09/2019 Former Smoker completed Former Smoker [facility] 03:16:00 PM [facility] EDT Smoking 12/09/2019 Former Smoker completed Former Smoker [facility] 02:41:00 PM [facility] EDT Smoking 12/09/2019 Former Smoker completed Former Smoker [facility] 12:22:00 AM [facility] EDT Smoking 12/08/2019 Former Smoker completed Former Smoker [facility] 10:45:00 PM [facility] EDT Smoking 12/08/2019 Former Smoker completed Former Smoker [facility] 01:23:00 PM [facility] EDT Smoking 12/08/2019 Former Smoker completed Former Smoker [facility] 01:13:00 PM [facility] EDT Smoking 12/08/2019 Former Smoker completed Former Smoker [facility] 01:10:00 PM [facility] EDT Smoking 12/08/2019 Former Smoker completed Former Smoker [facility] 02:18:00 AM [facility] EDT Smoking 12/08/2019 Former Smoker completed Former Smoker [facility] 01:30:00 AM [facility] EDT Smoking 12/08/2019 Former Smoker completed Former Smoker [facility] 01:27:00 AM [facility] EDT Smoking 12/07/2019 Former Smoker completed Former Smoker [facility] 04:27:00 PM [facility] EDT Smoking 12/07/2019 Former Smoker completed Former Smoker [facility] 02:22:00 PM [facility] EDT Smoking 12/06/2019 Former Smoker completed Former Smoker [facility] 06:19:00 PM [facility] EDT Smoking 12/06/2019 Former Smoker completed Former Smoker [facility] 06:11:00 PM Medical [facility] 12/04/2019 Former Smoker completed Former Smoker [facility] 09:42:00 PM [facility] 12/04/2019 Former Smoker completed Former Smoker [facility] 09:13:00 PM [facility] Sm[facility] 12/03/2019 Former Smoker completed Former Smoker [facility] 08:08:00 PM [facility] Sm[facility] 12/03/2019 Former Smoker completed Former Smoker [facility] 02:00:00 PM [facility] Sm[facility] 12/03/2019 Former Smoker completed Former Smoker [facility] 01:50:00 PM [facility] Smoking 12/03/2019 Former Smoker completed Former Smoker [facility] 01:04:00 AM [facility] Sm[facility] 12/02/2019 Former Smoker completed Former Smoker [facility] 08:34:00 PM [facility] Smoking 12/02/2019 Former Smoker completed Former Smoker [facility] 08:22:00 PM [facility] Smoking 11/30/2019 Former Smoker completed Former Smoker [facility] 09:40:00 PM [facility] Smoking 11/30/2019 Former Smoker completed Former Smoker [facility] 04:42:00 PM [facility] Smoking 11/30/2019 Former Smoker completed Former Smoker [facility] 04:42:00 PM [facility] Smoking 11/30/2019 Former Smoker completed Former Smoker [facility] 06:25:00 AM [facility] Smoking 11/30/2019 Former Smoker completed Former Smoker [facility] 04:49:00 AM [facility] Smoking 11/30/2019 Former Smoker completed Former Smoker [facility] 03:15:00 AM [facility] Smoking 11/29/2019 Former Smoker completed Former Smoker [facility] 06:25:00 PM [facility] Smoking 11/29/2019 Former Smoker completed Former Smoker [facility] 04[facility]54:00 PM [facility] Smoking 11/25/2019 Former Smoker completed Former Smoker [facility] 11:31:00 PM [facility] Smoking 11/25/2019 Former Smoker completed Former Smoker [facility] 10:11:00 PM [facility] Smoking 11/25/2019 Former Smoker completed Former Smoker [facility] 01:34:00 PM [facility] Smoking 11/25/2019 Former Smoker completed Former Smoker [facility] 12:13:00 PM [facility] Smoking 11/25/2019 Former Smoker completed Former Smoker [facility] 01:19:00 AM [facility] Smoking 11/25/2019 Former Smoker completed Former Smoker [facility] 01:11:00 AM [facility] Smoking 11/24/2019 Former Smoker completed Former Smoker [facility] 11:51:00 PM [facility] Smoking 11/24/2019 Former Smoker completed Former Smoker [facility] 02:14:00 PM [facility] Smoking 11/24/2019 Former Smoker completed Former Smoker [facility] 02:14:00 PM [facility] Smoking 11/24/2019 Former Smoker completed Former Smoker [facility] 02:07:00 PM [facility] Smoking 11/23/2019 Former Smoker completed Former Smoker [facility] 07:07:00 PM [facility] Smoking 11/23/2019 Former Smoker completed Former Smoker [facility] 05:30:00 PM [facility] Smoking 11/23/2019 Former Smoker completed Former Smoker [facility] 05:25:00 PM [facility] Smoking 11/23/2019 Former Smoker completed Former Smoker [facility] 02:21:00 AM [facility] Smoking 11/22/2019 Former Smoker completed Former Smoker [facility] 09:07:00 PM [facility] Smoking 11/22/2019 Former Smoker completed Former Smoker [facility] 08:32:00 PM [facility] Smoking 11/22/2019 Former Smoker completed Former Smoker [facility] 02:37:00 PM [facility] Smoking 11/22/2019 Former Smoker completed Former Smoker [facility] 01:49:00 PM [facility] Smoking 11/22/2019 Former Smoker completed Former Smoker [facility] 01:40:00 PM [facility] Smoking 11/20/2019 Former Smoker completed Former Smoker [facility] 04:17:00 PM [facility] Smoking 11/20/2019 Former Smoker completed Former Smoker [facility] 04:05:00 PM [facility] Smoking 11/20/2019 Former Smoker completed Former Smoker [facility] 04:00:00 PM [facility] Smoking 11/18/2019 Former Smoker completed Former Smoker [facility] 08:57:00 PM [facility] Smoking 11/18/2019 Former Smoker completed Former Smoker [facility] 01:47:00 PM [facility] Smoking 11/18/2019 Former Smoker completed Former Smoker [facility] 01:29:00 PM [facility] Smoking 11/16/2019 Former Smoker completed Former Smoker [facility] 09:10:00 PM [facility] Smoking 11/16/2019 Former Smoker completed Former Smoker [facility] 09:00:00 PM [facility] Smoking 11/16/2019 Former Smoker completed Former Smoker [facility] 08:55:00 PM [facility] Smoking 11/16/2019 Former Smoker completed Former Smoker [facility] 02:36:00 PM [facility] Smoking 11/16/2019 Former Smoker completed Former Smoker [facility] 02:04:00 PM [facility] Smoking 11/10/2019 Former Smoker completed Former Smoker [facility] 04:49:00 PM [facility] Smoking 11/10/2019 Former Smoker completed Former Smoker [facility] 04:49:00 PM [facility] Smoking 11/10/2019 Former Smoker completed Former Smoker [facility] 04:29:00 PM [facility] Smoking 11/08/2019 Former Smoker completed Former Smoker [facility] 08:01:00 PM [facility] Smoking 11/08/2019 Former Smoker completed Former Smoker [facility] 02:44:00 PM [facility] Smoking 11/08/2019 Former Smoker completed Former Smoker [facility] 02:41:00 PM [facility] Smoking 11/07/2019 Former Smoker completed Former Smoker [facility] 10:57:00 PM [facility] Smoking 11/05/2019 Former Smoker completed Former Smoker [facility] 02:08:00 PM [facility] Smoking 11/05/2019 Former Smoker completed Former Smoker [facility] 01:41:00 PM [facility] Smoking 11/03/2019 Former Smoker completed Former Smoker [facility] 09:41:00 PM [facility] Smoking 11/03/2019 Former Smoker completed Former Smoker [facility] 09:36:00 PM [facility] Smoking 11/02/2019 Former Smoker completed Former Smoker [facility] 07:40:00 PM [facility] Smoking 11/02/2019 Former Smoker completed Former Smoker [facility] 07:30:00 PM [facility] Smoking 11/02/2019 Former Smoker completed Former Smoker [facility] 07:07:00 PM [facility] Smoking 11/01/2019 Former Smoker completed Former Smoker [facility] 02:23:00 PM [facility] Smoking 11/01/2019 Former Smoker completed Former Smoker [facility] 02:14:00 PM [facility] Smoking 10/31/2019 Former Smoker completed Former Smoker [facility] 08:14:00 PM [facility] Smoking 10/31/2019 Former Smoker completed Former Smoker [facility] 06:30:00 PM [facility] Smoking 10/31/2019 Former Smoker completed Former Smoker [facility] 06:19:00 PM [facility] Smoking 10/30/2019 Former Smoker completed Former Smoker [facility] 04:02:00 PM [facility] Smoking 10/30/2019 Former Smoker completed Former Smoker [facility] 03:20:00 PM [facility] Smoking 10/30/2019 Former Smoker completed Former Smoker [facility] 03:12:00 PM [facility] Smoking 10/28/2019 Former Smoker completed Former Smoker [facility] 09:18:00 PM [facility] Smoking 10/28/2019 Former Smoker completed Former Smoker [facility] 09:03:00 PM [facility] Smoking 10/28/2019 Former Smoker completed Former Smoker [facility] 08:56:00 PM [facility] Smoking 10/27/2019 Former Smoker completed Former Smoker [facility] 06:59:00 PM [facility] Smoking 10/27/2019 Former Smoker completed Former Smoker [facility] 06:57:00 PM [facility] Smoking 10/27/2019 Former Smoker completed Former Smoker [facility] 06:52:00 PM [facility] Smoking 10/22/2019 Former Smoker completed Former Smoker [facility] 06:15:00 PM [facility] Smoking 10/22/2019 Former Smoker completed Former Smoker [facility] 06:10:00 PM [facility] Smoking 10/22/2019 Former Smoker completed Former Smoker [facility] 01:56:00 AM [facility] Smoking 10/22/2019 Former Smoker completed Former Smoker [facility] 01:24:00 AM [facility] Smoking 10/21/2019 Former Smoker completed Former Smoker [facility] 04:00:00 PM [facility] Smoking 10/21/2019 Former Smoker completed Former Smoker [facility] 03:44:00 PM [facility] Smoking 10/21/2019 Former Smoker completed Former Smoker [facility] 03:41:00 PM [facility] Smoking 10/21/2019 Former Smoker completed Former Smoker [facility] 12:28:00 AM [facility] Smoking 10/21/2019 Former Smoker completed Former Smoker [facility] 12:24:00 AM [facility] Smoking 10/19/2019 Former Smoker completed Former Smoker [facility] 08:42:00 PM [facility] Smoking 10/19/2019 Former Smoker completed Former Smoker [facility] 08:25:00 PM [facility] Smoking 10/19/2019 Former Smoker completed Former Smoker [facility] 08:21:00 PM [facility] Smoking 10/18/2019 Former Smoker completed Former Smoker [facility] 08:35:00 AM [facility] Smoking 10/18/2019 Former Smoker completed Former Smoker [facility] 07:07:00 AM [facility] Smoking 10/18/2019 Former Smoker completed Former Smoker [facility] 06:31:00 AM [facility] Smoking 10/17/2019 Former Smoker completed Former Smoker [facility] 10:32:00 PM [facility] Smoking 10/17/2019 Former Smoker completed Former Smoker [facility] 08:30:00 PM [facility] Smoking 10/17/2019 Former Smoker completed Former Smoker [facility] 08:27:00 PM [facility] Smoking 10/15/2019 Former Smoker completed Former Smoker [facility] 01:49:00 PM [facility] Smoking 10/15/2019 Former Smoker completed Former Smoker [facility] 01:34:00 PM [facility] Smoking 10/15/2019 Former Smoker completed Former Smoker [facility] 01:28:00 PM [facility] Smoking 10/13/2019 Former Smoker completed Former Smoker [facility] 07:42:00 PM [facility] Smoking 10/13/2019 Former Smoker completed Former Smoker [facility] 07:38:00 PM [facility] Smoking 10/13/2019 Former Smoker completed Former Smoker [facility] 07:36:00 PM [facility] Smoking 10/13/2019 Former Smoker completed Former Smoker [facility] 02:20:00 PM [facility] Smoking 10/13/2019 Former Smoker completed Former Smoker [facility] 08:08:00 AM [facility] Smoking 10/13/2019 Former Smoker completed Former Smoker [facility] 08:02:00 AM [facility] Smoking 10/12/2019 Former Smoker completed Former Smoker [facility] 01:43:00 AM [facility] Smoking 10/12/2019 Former Smoker completed Former Smoker [facility] 12:53:00 AM [facility] Smoking 10/12/2019 Former Smoker completed Former Smoker [facility] 12:49:00 AM [facility] Smoking 10/11/2019 Former Smoker completed Former Smoker [facility] 02:50:00 PM [facility] Smoking 10/11/2019 Former Smoker completed Former Smoker [facility] 02:44:00 PM [facility] Smoking 10/06/2019 Former Smoker completed Former Smoker [facility] 09:43:00 AM [facility] Smoking 10/06/2019 Former Smoker completed Former Smoker [facility] 09:36:00 AM [facility] Smoking 10/05/2019 Former Smoker completed Former Smoker [facility] 09:05:00 PM [facility] Smoking 10/05/2019 Former Smoker completed Former Smoker [facility] 08:54:00 PM [facility] Smoking 10/05/2019 Former Smoker completed Former Smoker [facility] 08:52:00 PM [facility] Smoking 09/19/2019 Former Smoker completed Former Smoker [facility] 07:45:00 AM [facility] Smoking 09/18/2019 Occasional completed Occasional Smoker [facility] 04:16:00 AM Smoker [facility] 09/17/2019 Former Smoker completed Former Smoker [facility] 11:35:00 PM [facility] Smoking 09/17/2019 Former Smoker completed Former Smoker [facility] 11:28:00 PM [facility] Smoking 09/17/2019 Former Smoker completed Former Smoker [facility] 06:43:00 PM [facility] Smoking 09/17/2019 Former Smoker completed Former Smoker [facility] 06:10:00 PM [facility] Smoking 09/17/2019 Former Smoker completed Former Smoker [facility] 06:01:00 PM [facility] Smoking 09/15/2019 Former Smoker completed Former Smoker [facility] 06:32:00 AM [facility] Smoking 09/14/2019 Former Smoker completed Former Smoker [facility] 10:00:00 PM [facility] Smoking 09/14/2019 Former Smoker completed Former Smoker [facility] 09:36:00 PM [facility] Smoking 09/14/2019 Former Smoker completed Former Smoker [facility] 09:24:00 PM [facility] Smoking 09/13/2019 Former Smoker completed Former Smoker [facility] 08:02:00 PM [facility] Smoking 09/13/2019 Former Smoker completed Former Smoker [facility] 07:43:00 PM [facility] Smoking 09/13/2019 Former Smoker completed Former Smoker [facility] 09:11:00 AM [facility] Smoking 09/13/2019 Former Smoker completed Former Smoker [facility] 09:02:00 AM [facility] Smoking 09/13/2019 Former Smoker completed Former Smoker [facility] 07:14:00 AM [facility] Smoking 09/12/2019 Former Smoker completed Former Smoker [facility] 07:21:00 AM [facility] Smoking 09/11/2019 Former Smoker completed Former Smoker [facility] 11:00:00 PM [facility] Smoking 09/11/2019 Former Smoker completed Former Smoker [facility] 09:46:00 PM [facility] Smoking 09/11/2019 Former Smoker completed Former Smoker [facility] 04:22:00 PM [facility] Smoking 09/11/2019 Former Smoker completed Former Smoker [facility] 04:15:00 PM [facility] Smoking 09/10/2019 Former Smoker completed Former Smoker [facility] 09:00:00 PM [facility] Smoking 09/10/2019 Former Smoker completed Former Smoker [facility] 05:45:00 PM [facility] Smoking 09/08/2019 Former Smoker completed Former Smoker [facility] 08:56:00 PM [facility] Smoking 09/08/2019 Former Smoker completed Former Smoker [facility] 08:54:00 PM [facility] Smoking 09/08/2019 Former Smoker completed Former Smoker [facility] 08:43:00 PM [facility] Smoking 09/08/2019 Former Smoker completed Former Smoker [facility] 01:57:00 AM [facility] Smoking 09/07/2019 Former Smoker completed Former Smoker [facility] 10:22:00 PM [facility] Smoking 09/07/2019 Former Smoker completed Former Smoker [facility] 10:19:00 PM [facility] Smoking 09/05/2019 Occasional completed Occasional Smoker [facility] 05:58:00 PM Smoker [facility] 09/05/2019 Former Smoker completed Former Smoker [facility] 02:09:00 PM [facility] Smoking 09/05/2019 Former Smoker completed Former Smoker [facility] 08:05:00 AM [facility] Smoking 09/05/2019 Denies Ever completed [facility] [place] [facility] 07:53:00 AM Smoked Smoked [facility] 09/04/2019 Denies Ever completed [facility] [place] [facility] 10:45:00 PM Smoked [facility]oked [facility] Sm[facility] 09/04/2019 Denies Ever completed [facility] [place] [facility] 10:30:00 PM Smoked Smoked [facility] Smoking 09/04/2019 Denies Ever completed [facility] [place] [facility] 10:24:00 PM Smoked Smoked [facility] Sm[facility] 09/04/2019 Denies Ever completed [facility] [place] [facility] 03:33:00 PM Smoked Smoked [facility] Smoking 09/04/2019 Denies Ever completed [facility] [place] [facility] 03:03:00 PM Smoked Smoked [facility] Smoking 09/04/2019 Denies Ever completed [facility] [place] [facility] 01:35:00 AM Smoked Smoked [facility] Sm[facility] 09/03/2019 Denies Ever completed [facility] [place] [facility] 08:53:00 PM Smoked Smoked [facility] Smoking 09/03/2019 Denies Ever completed [facility] [place] [facility] 08:51:00 PM Smoked Smoked [facility] Smoking 09/02/2019 Denies Ever completed [facility] [place] [facility] 05:11:00 PM Smoked Smoked [facility] Smoking 09/02/2019 Denies Ever completed [facility] [place] [facility] 05:01:00 PM Smoked Smoked [facility] Sm[facility] 09/02/2019 Denies Ever completed [facility] [place] [facility] 04:50:00 PM [facility]oked [facility]oked [facility] Sm[facility] 09/01/2019 Denies Ever completed [facility] [place] [facility] 10:50:00 PM Smoked Smoked [facility] Smoking 09/01/2019 Denies Ever completed [facility] [place] [facility] 10:43:00 PM Smoked Smoked [facility] Smoking 09/01/2019 Denies Ever completed [facility] [place] [facility] 10[facility]41:00 PM [facility]oked Smoked [facility] Smoking 09/01/2019 Denies Ever completed [facility] [place] [facility] 01:15:00 PM Smoked Smoked [facility] Sm[facility] 09/01/2019 Denies Ever completed [facility] [place] [facility] 12:57:00 PM Smoked Smoked [facility] Smoking 09/01/2019 Denies Ever completed [facility] [place] [facility] 12:51:00 PM Smoked Smoked [facility] Smoking 08/31/2019 Denies Ever completed [facility] [place] [facility] 10:08:00 PM Smoked Smoked [facility] Smoking 08/31/2019 Denies Ever completed [facility] [place] [facility] 09:53:00 PM Smoked Smoked [facility] Smoking 08/31/2019 Denies Ever completed [facility] [place] [facility] 08:28:00 PM Smoked Smoked [facility] Smoking 08/31/2019 Denies Ever completed [facility] [place] [facility] 07:56:00 PM [facility]oked [facility]oked [facility] Sm[facility] 08/30/2019 Denies Ever completed [facility] [place] [facility] 06:05:00 AM Smoked Smoked [facility] Smoking 08/29/2019 Denies Ever completed [facility] [place] [facility] 08:32:00 PM Smoked Smoked [facility] Smoking 08/29/2019 Denies Ever completed [facility] [place] [facility] 08:19:00 PM Smoked Smoked [facility] Smoking 08/29/2019 Denies Ever completed [facility] [place] [facility] 08:16:00 PM Smoked [facility]oked [facility] Smoking 08/28/2019 Denies Ever completed [facility] [place] [facility] 10:29:00 PM Smoked Smoked [facility] Smoking 08/28/2019 Denies Ever completed [facility] [place] [facility] 10:06:00 PM Smoked Smoked [facility] Smoking 08/28/2019 Denies Ever completed [facility] [place] [facility] 09:00:00 PM Smoked Smoked [facility] Smoking 08/27/2019 Denies Ever completed [facility] [place] [facility] 09:05:00 PM [facility]oked [facility]oked [facility] Smoking 08/27/2019 Denies Ever completed [facility] [place] [facility] 08:50:00 PM Smoked Smoked [facility] Smoking 08/27/2019 Denies Ever completed [facility] [place] [facility] 08:45:00 PM [facility]oked Smoked [facility] Smoking 08/27/2019 Denies Ever completed [facility] [place] [facility] 12:00:00 PM [facility]oked [facility]oked [facility] Smoking 08/27/2019 Denies Ever completed [facility] [place] [facility] 06:20:00 AM Smoked Smoked [facility] Smoking 08/27/2019 Denies Ever completed [facility] [place] [facility] 05:45:00 AM Smoked Smoked [facility] Smoking 08/27/2019 Denies Ever completed [facility] [place] [facility] 05:40:00 AM Smoked [facility]oked [facility] Sm[facility] 08/25/2019 Denies Ever completed [facility] [place] [facility] 05:24:00 PM [facility]oked [facility]oked [facility] Smoking 08/25/2019 Denies Ever completed [facility] [place] [facility] 05:24:00 PM [facility]oked [facility]oked [facility] Sm[facility] 08/25/2019 Denies Ever completed [facility] [place] [facility] 05:00:00 PM [facility]oked [facility]oked [facility] Sm[facility] 08/24/2019 Denies Ever completed [facility] [place] [facility] 07:23:00 PM Smoked Smoked [facility] Smoking 08/24/2019 Denies Ever completed [facility] [place] [facility] 06:55:00 PM Smoked Smoked [facility] Sm[facility] 08/23/2019 Denies Ever completed [facility] [place] [facility] 07:52:00 PM Smoked Smoked [facility] Smoking 08/23/2019 Denies Ever completed [facility] [place] [facility] 06:55:00 PM [facility]oked [facility]oked [facility] Sm[facility] 08/23/2019 Denies Ever completed [facility] [place] [facility] 06:45:00 PM Smoked Smoked [facility] Smoking 08/23/2019 Denies Ever completed [facility] [place] [facility] 03:41:00 AM Smoked Smoked [facility] Sm[facility] 08/23/2019 Denies Ever completed [facility] [place] [facility] 12:02:00 AM Smoked Smoked [facility] Sm[facility] 08/22/2019 Denies Ever completed [facility] [place] [facility] 11:04:00 PM [facility]oked [facility]oked [facility] 08/21/2019 Denies Ever completed [facility] [place] [facility] 10:47:00 PM Smoked Smoked [facility] Sm[facility] 08/21/2019 Denies Ever completed [facility] [place] [facility] 09:18:00 PM [facility]oked [facility] Sm[facility] 08/20/2019 Denies Ever completed [facility] [place] [facility] 04:32:00 PM [facility] Smoking 08/20/2019 Denies Ever completed [facility] [place] [facility] 02:40:00 PM [facility]oked [facility] Smoking 08/20/2019 Denies Ever completed [facility] [place] [facility] 02:30:00 PM [facility]oked [facility] Smoking 08/19/2019 Denies Ever completed [facility] [place] [facility] 08:03:00 PM Smoked Smoked [facility] Smoking 08/19/2019 Denies Ever completed [facility] [place] [facility] 06:55:00 PM [facility]oked Smoked [facility] Smoking 08/19/2019 Denies Ever completed [facility] [place] [facility] 06:49:00 PM Smoked Smoked [facility] Smoking 08/19/2019 Denies Ever completed [facility] [place] [facility] 03:04:00 PM [facility]oked [facility]oked [facility] Smoking 08/19/2019 Denies Ever completed [facility] [place] [facility] 02:58:00 PM Smoked [facility]oked [facility] Smoking 08/18/2019 Denies Ever completed [facility] [place] [facility] 04:18:00 PM [facility]oked [facility]oked [facility] Smoking 08/18/2019 Denies Ever completed [facility] [place] [facility] 03:42:00 PM Smoked [facility]oked [facility] EST Smoking 08/18/2019 Denies Ever completed [facility] [place] [facility] 03:38:00 PM Smoked Smoked [facility] Smoking 08/18/2019 Denies Ever completed [facility] [place] [facility] 03:23:00 PM Smoked Smoked [facility] EST Smoking 08/17/2019 Denies Ever completed [facility] [place] [facility] 09:00:00 PM Smoked Smoked [facility] EST Smoking 08/17/2019 Denies Ever completed [facility] [place] [facility] 02:33:00 PM Smoked Smoked [facility] Smoking 08/17/2019 Denies Ever completed [facility] [place] [facility] 02:33:00 PM Smoked Smoked [facility] EST Smoking 08/17/2019 Denies Ever completed [facility] [place] [facility] 01:39:00 PM Smoked Smoked [facility] EST Smoking 08/17/2019 Denies Ever completed [facility] [place] [facility] 02:14:00 AM Smoked Smoked [facility] EST Smoking 08/17/2019 Denies Ever completed [facility] [place] [facility] 01:51:00 AM Smoked Smoked [facility] EST Smoking 08/17/2019 Denies Ever completed [facility] [place] [facility] 01:48:00 AM Smoked Smoked [facility] EST Smoking 08/12/2019 Denies Ever completed [facility] [place] [facility] 06:49:00 PM Smoked Smoked [facility] EST Smoking 08/12/2019 Denies Ever completed [facility] [place] [facility] 06:30:00 PM Smoked Smoked [facility] EST Smoking 08/12/2019 Denies Ever completed [facility] [place] [facility] 06:27:00 PM Smoked Smoked [facility] EST Smoking 08/11/2019 Denies Ever completed [facility] [place] [facility] 05:21:00 PM Smoked Smoked [facility] Smoking 08/11/2019 Denies Ever completed [facility] [place] [facility] 05:20:00 PM Smoked Smoked [facility] Smoking 08/11/2019 Denies Ever completed [facility] [place] [facility] 05:13:00 PM Smoked Smoked [facility] EST Smoking 08/10/2019 Denies Ever completed [facility] [place] [facility] 10:46:00 PM Smoked Smoked [facility] EST Smoking 08/10/2019 Denies Ever completed [facility] [place] [facility] 10:41:00 PM Smoked Smoked [facility] EST Smoking 08/10/2019 Denies Ever completed [facility] [place] [facility] 10:39:00 PM Smoked Smoked [facility] EST Smoking 08/10/2019 Denies Ever completed [facility] 04:30:00 [facility] 08/10/2019 [facility] 04:25:00 [facility] Sm[facility] 08/10/2019 [facility] 04:24:00 PM [facility] Sm[facility] 08/09/2019 [facility] 10:00:00 PM [facility] Smoking 08/09/2019 [facility] 09:46:00 PM [facility] Smoking 08/09/2019 [facility] 07:29:00 PM [facility] Smoking 08/09/2019 [facility] 09:47:00 AM [facility] Smoking 08/09/2019 [facility] 06:20:00 AM [facility] Smoking 08/08/2019 [facility] 04:53:00 PM [facility] Smoking 08/08/2019 [facility] 04[facility]33:00 PM [facility] Smoking 08/08/2019 [facility] 04[facility]29:00 PM [facility] Smoking 08[facility]06/2019 [facility] 10:48:00 PM [facility] Smoking 08/06/2019 [facility] 04[facility]22:00 PM [facility] Smoking 08/06/2019 [facility] 04:08:00 PM [facility] Smoking 08/01/2019 [facility] 08[facility]10:00 PM [facility] Smoking 08/01/2019 [facility] 06:56:00 PM [facility] Smoking 07/31/2019 [facility] 11:52:00 PM [facility] Smoking 07/31/2019 [facility] 11:50:00 PM [facility] Smoking 07/31/2019 [facility] 11:44:00 PM [facility] Smoking 07/31/2019 [facility] 06:23:00 PM [facility] Smoking 07/31/2019 [facility] 06:03:00 PM [facility] Smoking 07/30/2019 [facility] 10:13:00 PM [facility] Smoking 07/30/2019 [facility] 07[facility]07:00 PM [facility] Smoking 07/30/2019 [facility] 07:03:00 PM [facility] Smoking 07/29/2019 [facility] 10:25:00 PM [facility] Smoking 07/29/2019 [facility] 10:10:00 PM [facility] Smoking 07/29/2019 [facility] 10:05:00 PM [facility] Smoking 07/28/2019 [facility] 05:15:00 PM [facility] Smoking 07/28/2019 [facility] 03:00:00 PM [facility] Smoking 07/28/2019 [facility] 02:56:00 PM [facility] Smoking 07/28/2019 [facility] 02:50:00 PM [facility] Smoking 07/28/2019 [facility] 09:29:00 AM [facility] Smoking 07/28/2019 [facility] 07[facility]03:00 AM [facility] Smoking 07/28/2019 [facility] 06:09:00 AM [facility] Smoking 07/28/2019 [facility] 03:27:00 AM [facility] Smoking 07/28/2019 [facility] 03:21:00 AM [facility] Smoking 07/27/2019 [facility] 04:01:00 PM [facility] Smoking 07/27/2019 [facility] 03:35:00 PM [facility] Smoking 07/26/2019 [facility] 02:50:00 PM [facility] Smoking 07[facility]26/2019 [facility] 02:46:00 PM [facility] Smoking 07/26/2019 [facility] 02:40:00 PM [facility] Smoking 07[facility]22/2019 [facility] 12[facility]52:00 AM [facility] Smoking 07/22/2019 [facility] 12[facility]35:00 AM [facility] Smoking 07/22/2019 [facility] 12:23:00 AM [facility] Smoking 07/17/2019 [facility] 07:49:00 PM [facility] Smoking 07/17/2019 [facility] 07:45:00 PM [facility] Smoking 07/17/2019 [facility] 07[facility]35:00 PM [facility] Smoking 07/16/2019 [facility] 03:43:00 PM [facility] Smoking 07/15/2019 [facility] 01:56:00 AM [facility] Smoking 07/15/2019 [facility] 01[facility]30:00 AM [facility] Smoking 07/15/2019 [facility] 01:15:00 AM [facility] Smoking 07/14/2019 [facility] 07[facility]48:00 AM [facility] Smoking 07/14/2019 [facility] 07[facility]42:00 AM [facility] Smoking 07/14/2019 [facility] 07:39:00 AM [facility] Smoking 07/13/2019 [facility] 04:24:00 AM [facility] Smoking 07/13/2019 [facility] 03:16:00 AM [facility] Smoking 07/13/2019 [facility] 03:06:00 AM [facility] Smoking 07/12/2019 [facility] 10:49:00 PM [facility] Smoking 07/12/2019 [facility] 09:50:00 PM [facility] Smoking 07/12/2019 [facility] 09:44:00 PM [facility] Smoking 07/12/2019 [facility] 02[facility]13:00 PM [facility] Smoking 07/12/2019 [facility] 01[facility]45:00 PM [facility] Smoking 07/12/2019 [facility] 01:36:00 PM [facility] Smoking 07[facility]09/2019 [facility] 10[facility]18:00 PM [facility] Smoking 07/09/2019 [facility] 10:15:00 PM [facility] Smoking 07/09/2019 [facility] 11:45:00 AM [facility] Smoking 07[facility]09/2019 [facility] 11:44:00 AM [facility] Smoking 07/09/2019 [facility] 11:37:00 AM [facility] Smoking 07/08/2019 [facility] 09[facility]39:00 PM [facility] Smoking 07/08/2019 [facility] 08[facility]30:00 PM [facility] Smoking 07/07/2019 [facility] 08:05:00 PM [facility] Smoking 07/07/2019 [facility] 08:01:00 PM [facility] Smoking 07/07/2019 [facility] 08:01:00 PM [facility] Smoking 07/07/2019 [facility] 12:50:00 PM [facility] Smoking 07/07/2019 [facility] 12:35:00 PM [facility] Smoking 07/07/2019 [facility] 12[facility]26:00 PM [facility] Smoking 07/06/2019 [facility] 10:35:00 PM [facility] Smoking 07/06/2019 [facility] 06:56:00 PM [facility] Smoking 07/06/2019 [facility] 06:44:00 PM [facility] Smoking 07/05/2019 [facility] 11[facility]22:00 PM [facility] Smoking 07/05/2019 [facility] 10:22:00 PM [facility] Smoking 07/05/2019 [facility] 10:20:00 PM [facility] Smoking 07/04/2019 [facility] 07:35:00 PM [facility] Smoking 07/04/2019 [facility] 06[facility]40:00 PM [facility] Smoking 07/04/2019 [facility] 06[facility]14:00 PM [facility] Smoking 07/03/2019 [facility] 11:43:00 PM [facility] Smoking 07/03/2019 [facility] 11:37:00 PM [facility] Smoking 07/03/2019 [facility] 10:50:00 PM [facility] Smoking 07/02/2019 [facility] 06:42:00 PM [facility] Smoking 07/02/2019 [facility] 06:30:00 PM [facility] Smoking 07/02/2019 [facility] 06:26:00 PM [facility] Smoking 07/01/2019 [facility] 11:34:00 PM [facility] Smoking 07/01/2019 [facility] 11:20:00 PM [facility] Smoking 07/01/2019 [facility] 09[facility]09:00 PM [facility] Smoking 07/01/2019 [facility] 07:30:00 PM [facility] Smoking 06/29/2019 [facility] 11:36:00 PM [facility] Smoking 06/29/2019 [facility] 09:42:00 PM [facility] Smoking 06/29/2019 [facility] 09:39:00 PM [facility] Smoking 06/29/2019 [facility] 04:04:00 AM [facility] Smoking 06/29/2019 [facility] 03:25:00 AM [facility] Smoking 06/29/2019 [facility] 03:13:00 AM [facility] Smoking 06/28/2019 [facility] 09:32:00 PM [facility] Smoking 06/28/2019 [facility] 09:30:00 PM [facility] Smoking 06/28/2019 [facility] 09:29:00 PM [facility] Smoking 06/28/2019 [facility] 02:11:00 PM [facility] Smoking 06/28/2019 [facility] 01:04:00 PM [facility] Smoking 06/28/2019 [facility] 01:03:00 PM [facility] Smoking 06/28/2019 [facility] 01:10:00 AM [facility] Smoking 06/28/2019 [facility] 12:26:00 AM [facility] Smoking 06/28/2019 [facility] 12:11:00 AM [facility] Smoking 06/27/2019 [facility] 01:00:00 PM [facility] Smoking 06/27/2019 [facility] 01:00:00 PM [facility] Smoking 06/27/2019 [facility] 12:58:00 PM [facility] Smoking 06/27/2019 [facility] 04:30:00 AM [facility] Smoking 06/27/2019 [facility] 04:03:00 AM [facility] Smoking 06/27/2019 [facility] 04:00:00 AM [facility] Smoking 06/25/2019 [facility] 12:31:00 AM [facility] Smoking 06/24/2019 [facility] 11:00:00 PM [facility] Smoking 06/24/2019 [facility] 02:18:00 PM [facility] Smoking 06/24/2019 [facility] 02:00:00 PM [facility] Smoking 06/24/2019 [facility] 01:58:00 PM [facility] Smoking 06/23/2019 [facility] 06:06:00 PM [facility] Smoking 06/23/2019 [facility] 05:20:00 PM [facility] Smoking 06/23/2019 [facility] 05:13:00 PM [facility] Smoking 06/16/2019 [facility] 06:50:00 PM [facility] Smoking 06/16/2019 [facility] 06:28:00 PM [facility] Smoking 06/16/2019 [facility] 06:20:00 PM [facility] Smoking 06/16/2019 [facility] 06:59:00 AM [facility] Smoking 06/16/2019 [facility] 02:39:00 AM [facility] Smoking 06/16/2019 [facility] 02:36:00 AM [facility] Smoking 06/15/2019 [facility] 05:30:00 PM [facility] Smoking 06[facility]15/2019 [facility] 01:56:00 PM [facility] Smoking 06/14/2019 [facility] 08:35:00 PM [facility] Smoking 06/14/2019 [facility] 08:20:00 PM [facility] Smoking 06/13/2019 [facility] 07[facility]54:00 PM [facility] Smoking 06/13/2019 [facility] 06[facility]40:00 PM [facility] Smoking 06/13/2019 [facility] 06:21:00 PM [facility] Smoking 06/12/2019 [facility] 08:52:00 PM [facility] Smoking 06/12/2019 [facility] 08:50:00 PM [facility] Smoking 06/12/2019 [facility] 05[facility]44:00 PM [facility] Smoking 06/12/2019 [facility] 05:24:00 PM [facility] Smoking 06/10/2019 [facility] 07:42:00 PM [facility] Smoking 06/10/2019 [facility] 06:32:00 PM [facility] Smoking 06/10/2019 [facility] 06:01:00 PM [facility] Smoking 06/09/2019 [facility] 09:32:00 PM [facility] Smoking 06/09/2019 [facility] 06:51:00 PM [facility] Smoking 06/09/2019 [facility] 06:45:00 PM [facility] Smoking 06/09/2019 [facility] 03[facility]49:00 PM [facility] Smoking 06/09/2019 [facility] 02:45:00 PM [facility] Smoking 06/09/2019 [facility] 02:33:00 PM [facility] Smoking 06/09/2019 [facility] 04:29:00 AM [facility] Smoking 06/08/2019 [facility] 08[facility]13:00 PM [facility] Smoking 06/08/2019 [facility] 08[facility]11:00 PM [facility] Smoking 06[facility]07/2019 [facility] 04:40:00 PM [facility] Smoking 06/07/2019 [facility] 04:38:00 PM [facility] Smoking 06/07/2019 [facility] 04:29:00 PM [facility] Smoking 06/06/2019 [facility] 07:34:00 PM [facility] Smoking 06/06/2019 [facility] 07:03:00 PM [facility] Smoking 06[facility]06/2019 [facility] 12:18:00 PM [facility] Smoking 06/06/2019 [facility] 11[facility]54:00 AM [facility] Smoking 06/06/2019 [facility] 11:51:00 AM [facility] Smoking 06/06/2019 [facility] 06:28:00 AM [facility] Smoking 06/05/2019 [facility] 06:12:00 PM [facility] Smoking 06/05/2019 [facility] 05:59:00 PM [facility] Smoking 06/05/2019 [facility] 05:54:00 PM [facility] Smoking 06/03/2019 [facility] 03:59:00 PM [facility] Smoking 06/03/2019 [facility] 03:05:00 PM [facility] Smoking 06/03/2019 [facility] 03:00:00 PM [facility] Smoking 06/02/2019 [facility] 09:00:00 PM [facility] Smoking 06/02/2019 [facility] 05[facility]09:00 PM [facility] Sm[facility] 06/02/2019 [facility] 04:10:00 PM [facility] Smoking 06/02/2019 [facility] 04:06:00 PM [facility] Smoking 06/02/2019 [facility] 03:57:00 PM [facility] Sm[facility] 06/01/2019 [facility] 10[facility]00:00 PM [facility] Sm[facility] 06/01/2019 [facility] 07:59:00 PM [facility] Sm[facility] 06/01/2019 [facility] 07:29:00 PM [facility] Smoking 06/01/2019 [facility] 02:31:00 PM [facility] Smoking 06/01/2019 [facility] 01:46:00 PM [facility] Smoking 05/31/2019 [facility] 03:00:00 PM [facility] Smoking 05/31/2019 [facility] 02:51:00 PM [facility] Smoking 05/31/2019 [facility] 02:38:00 PM [facility] Smoking 05/29/2019 [facility] 11:04:00 PM [facility] Smoking 05/29/2019 [facility] 03:08:00 PM [facility] Smoking 05/29/2019 [facility] 03:03:00 PM [facility] Sm[facility] 05/29/2019 [facility] 01:54:00 AM [facility] Smoking 05/28/2019 [facility] 09:58:00 PM [facility] Smoking 05/28/2019 [facility] 09:54:00 PM [facility] Smoking 05/28/2019 [facility] 04:55:00 PM [facility] Smoking 05/28/2019 [facility] 02:38:00 PM [facility] Smoking 05/24/2019 [facility] 09:32:00 PM [facility] Smoking 05/24/2019 [facility] 06:44:00 PM [facility] Smoking 05/24/2019 [facility] 12:24:00 PM [facility] Smoking 05/24/2019 [facility] 12:20:00 PM [facility] Smoking 05/24/2019 [facility] 12:06:00 PM [facility] Sm[facility] 05/22/2019 [facility] 10:30:00 PM [facility] Smoking 05/22/2019 [facility] 10:20:00 PM [facility] Smoking 05/22/2019 [facility] 02:39:00 PM [facility] Smoking 05/22/2019 [facility] 02:34:00 PM [facility] Smoking 05/22/2019 [facility] 02:17:00 PM [facility] Smoking 05/21/2019 [facility] 05:06:00 PM [facility] Smoking 05/21/2019 [facility] 04:16:00 PM [facility] Smoking 05/21/2019 [facility] 04:04:00 PM [facility] Smoking 05/21/2019 [facility] 04:19:00 AM [facility] Smoking 05/20/2019 [facility] 07:48:00 PM [facility] Smoking 05/20/2019 [facility] 07:45:00 PM [facility] Smoking 05/20/2019 [facility] 07:17:00 PM [facility] Smoking 05/20/2019 [facility] 12:02:00 AM [facility] Smoking 05/19/2019 [facility] 09:36:00 PM [facility] Smoking 05/18/2019 [facility] 12:35:00 AM [facility] Smoking 05/18/2019 [facility] 12:00:00 AM [facility] Sm[facility] 05/17/2019 [facility] 11:16:00 PM Smoked [facility] 05/17/2019 [facility] completed [facility] 01:41:00 PM [facility] Sm[facility] 05/17/2019 [facility] completed [facility] [place] [facility] 01:10:00 PM [facility] Sm[facility] 05/17/2019 [facility] completed [facility] 01:00:00 PM [facility] Smoking 05/17/2019 [facility] completed [facility] 12:53:00 PM [facility] Smoking 05/17/2019 [facility] completed [facility] [place] [facility] 03:08:00 AM [facility] Sm[facility] 05/16/2019 [facility] completed [facility] [place] [facility] 08:26:00 PM [facility] Sm[facility] 05/16/2019 [facility] completed [facility] [place] [facility] 08:08:00 PM [facility] Smoking 05/15/2019 [facility] completed [facility] [place] [facility] 06:00:00 PM [facility] Smoking 05/15/2019 [facility] completed [facility] [place] [facility] 05:38:00 PM [facility] Smoking 05/15/2019 [facility] completed [facility] [place] [facility] 05:26:00 PM [facility] Smoking 05/15/2019 [facility] completed [facility] [place] [facility] 12:13:00 AM [facility] Smoking 05/15/2019 [facility] completed [facility] 12:02:00 AM [facility] Smoking 05/15/2019 [facility] completed [facility] [place] [facility] 12[facility]02:00 AM [facility] Smoking 05/14/2019 [facility] completed [facility] [place] [facility] 04:57:00 PM [facility] Smoking 05/14/2019 [facility] completed [facility] [place] [facility] 04:00:00 PM [facility] Smoking 05/14/2019 [facility] completed [facility] [place] [facility] 03:35:00 PM [facility] Smoking 05/07/2019 [facility] completed [facility] 04:05:00 PM [facility] Smoking 05/07/2019 Occasional completed Occasional Smoker [facility] 01:13:00 PM [facility] Sm[facility] 05/07/2019 [facility] completed [facility] [place] [facility] 08:31:00 AM [facility] Smoking 05/07/2019 [facility] completed [facility] [place] [facility] 08:25:00 AM [facility] Smoking 05/06/2019 [facility] completed [facility] [place] [facility] 06:15:00 PM [facility] Smoking 05/06/2019 [facility] completed [facility] [place] [facility] 05:50:00 PM [facility] Smoking 05/05/2019 [facility] completed [facility] [place] [facility] 05:00:00 PM [facility] Smoking 05/05/2019 [facility] completed [facility] [place] [facility] 04:19:00 PM [facility] Smoking 05/05/2019 [facility] completed [facility] [place] [facility] 04:12:00 PM [facility] Smoking 05/04/2019 [facility] completed [facility] [place] [facility] 09:20:00 PM [facility] Smoking 05/04/2019 [facility] completed [facility] [place] [facility] 09:17:00 PM [facility] Smoking 05/04/2019 [facility] completed [facility] [place] [facility] 08:52:00 PM [facility] Smoking 05/02/2019 [facility] completed [facility] [place] [facility] 05:33:00 PM [facility] Smoking 05/02/2019 [facility] completed [facility] [place] [facility] 04:03:00 PM [facility] Smoking 05/02/2019 [facility] completed [facility] [place] [facility] 03:36:00 PM [facility] Smoking 05/02/2019 [facility] completed [facility] [place] [facility] 03:36:00 PM [facility] Smoking 05/01/2019 [facility] completed [facility] [place] [facility] 02:41:00 PM [facility] Smoking 05/01/2019 [facility] completed [facility] [place] [facility] 02:25:00 PM [facility] Smoking 05/01/2019 [facility] completed [facility] [place] [facility] 02:22:00 PM [facility] Smoking 04/30/2019 [facility] completed [facility] [place] [facility] 10:04:00 PM [facility] Smoking 04/30/2019 [facility] completed [facility] [place] [facility] 09:20:00 PM [facility] Smoking 04/30/2019 [facility] completed [facility] [place] [facility] 09:18:00 PM [facility] Smoking 04/30/2019 [facility] completed [facility] [place] [facility] 08:14:00 PM [facility] Smoking 04/30/2019 [facility] completed [facility] [place] [facility] 08:08:00 PM [facility] Smoking 04/30/2019 [facility] completed [facility] [place] [facility] 08:01:00 PM [facility] Smoking 04/30/2019 [facility] completed [facility] [place] [facility] 04:19:00 PM [facility] Smoking 04/30/2019 [facility] completed [facility] [place] [facility] 03:00:00 PM [facility] Smoking 04/30/2019 [facility] completed [facility] [place] [facility] 02:51:00 PM [facility] Smoking 04/30/2019 [facility] completed [facility] [place] [facility] 06:29:00 AM [facility] Smoking 04/29/2019 [facility] completed [facility] [place] [facility] 09:34:00 PM [facility] Smoking 04/29/2019 [facility] completed [facility] [place] [facility] 09:32:00 PM [facility] Smoking 04/29/2019 [facility] completed [facility] [place] [facility] 03:00:00 AM [facility] Smoking 04/29/2019 [facility] completed [facility] [place] [facility] 03:00:00 AM [facility] Smoking 04/29/2019 [facility] completed [facility] [place] [facility] 02:57:00 AM [facility] Smoking 04/28/2019 [facility] completed [facility] [place] [facility] 06:19:00 PM [facility] Smoking 04/28/2019 [facility] completed [facility] [place] [facility] 06:11:00 PM [facility] Smoking 04/28/2019 [facility] completed [facility] [place] [facility] 03:58:00 PM [facility] Smoking 04/27/2019 [facility] completed [facility] [place] [facility] 10:14:00 PM [facility] Smoking 04/27/2019 [facility] completed [facility] [place] [facility] 04:51:00 PM [facility] Smoking 04/27/2019 [facility] completed [facility] [place] [facility] 04:15:00 PM [facility] Smoking 04/27/2019 [facility] completed [facility] [place] [facility] 03:48:00 PM [facility] Smoking 04/26/2019 [facility] completed [facility] [place] [facility] 11:25:00 PM [facility] Smoking 04/26/2019 [facility] completed [facility] [place] [facility] 01:32:00 PM [facility] Smoking 04/26/2019 [facility] completed [facility] [place] [facility] 01:21:00 PM [facility] Smoking 04/26/2019 [facility] completed [facility] [place] [facility] 01:17:00 PM [facility] Smoking 04/24/2019 [facility] completed [facility] [place] [facility] 03:03:00 AM [facility] Smoking 04/24/2019 [facility] completed [facility] [place] [facility] 02:20:00 AM [facility] Smoking 04/24/2019 [facility] completed [facility] [place] [facility] 02:03:00 AM [facility] Smoking 04/23/2019 [facility] completed [facility] [place] [facility] 01:19:00 PM [facility] Smoking 04/23/2019 [facility] completed [facility] [place] [facility] 01:14:00 PM [facility] Smoking 04/22/2019 [facility] completed [facility] [place] [facility] 06:36:00 PM [facility] Smoking 04/22/2019 [facility] completed [facility] [place] [facility] 05:00:00 PM [facility] Smoking 04/22/2019 [facility] completed [facility] [place] [facility] 04:25:00 PM [facility] Smoking 04/22/2019 [facility] completed [facility] [place] [facility] 04:14:00 PM [facility] Smoking 04/21/2019 [facility] completed [facility] [place] [facility] 12:16:00 PM [facility] Smoking 04/21/2019 [facility] completed [facility] [place] [facility] 12:14:00 PM [facility] Smoking 04/20/2019 [facility] completed [facility] [place] [facility] 01:49:00 PM [facility] Smoking 04/20/2019 [facility] completed [facility] [place] [facility] 01:20:00 PM [facility] Smoking 04/20/2019 [facility] completed [facility] [place] [facility] 01:10:00 PM [facility] Smoking 04/19/2019 [facility] completed [facility] [place] [facility] 10:54:00 PM [facility] Smoking 04/19/2019 [facility] completed [facility] [place] [facility] 10:00:00 PM [facility] Smoking 04/19/2019 [facility] completed [facility] [place] [facility] 05:59:00 PM [facility] Smoking 04/19/2019 [facility] completed [facility] [place] [facility] 05:11:00 PM [facility] Smoking 04/19/2019 [facility] completed [facility] [place] [facility] 01:35:00 PM [facility] Smoking 04/19/2019 [facility] completed [facility] [place] [facility] 01:31:00 PM [facility] Smoking 04/19/2019 [facility] completed [facility] [place] [facility] 01:31:00 PM [facility] Smoking 04/18/2019 [facility] completed [facility] [place] [facility] 09:45:00 PM [facility] Smoking 04/18/2019 [facility] completed [facility] [place] [facility] 06:24:00 PM [facility] Smoking 04/18/2019 [facility] completed [facility] [place] [facility] 05:07:00 PM [facility] Smoking 04/18/2019 [facility] completed [facility] [place] [facility] 02:42:00 PM [facility] Smoking 04/18/2019 [facility] completed [facility] [place] [facility] 02:39:00 PM [facility] Smoking 04/17/2019 [facility] completed [facility] [place] [facility] 08:59:00 PM [facility] Smoking 04/17/2019 [facility] completed [facility] [place] [facility] 07:42:00 PM [facility] Smoking 04/17/2019 [facility] completed [facility] [place] [facility] 07[facility]37:00 PM [facility] Smoking 04/16/2019 [facility] completed [facility] [place] [facility] 07:16:00 PM [facility] EDT Smoking 04/16/2019 [facility] completed [facility] [place] [facility] 06:56:00 PM [facility] EDT Smoking 04/11/2019 [facility] completed [facility] [place] [facility] 08:20:00 PM [facility] EDT Smoking 04/11/2019 [facility] completed [facility] [place] [facility] 06:35:00 PM [facility] EDT Smoking 04/10/2019 [facility] completed [facility] [place] [facility] 09:56:00 PM [facility] EDT Smoking 04/10/2019 [facility] completed [facility] [place] [facility] 07:59:00 PM [facility] EDT Smoking 04/10/2019 [facility] completed [facility] [place] [facility] 07:50:00 PM [facility] EDT Smoking 04/09/2019 [facility] completed [facility] [place] [facility] 11:30:00 PM [facility] EDT Smoking 04/09/2019 [facility] completed [facility] [place] [facility] 09:19:00 PM [facility] EDT Smoking 04/09/2019 [facility] completed [facility] [place] [facility] 09:14:00 PM [facility] EDT Smoking 04/08/2019 [facility] completed [facility] [place] [facility] 09:14:00 PM [facility] EDT Smoking 04/08/2019 [facility] completed [facility] [place] [facility] 05:52:00 PM [facility] EDT Smoking 04/08/2019 [facility] completed [facility] [place] [facility] 05:49:00 PM [facility] EDT Smoking 04/07/2019 [facility] completed [facility] [place] [facility] 05:10:00 AM [facility] EDT Smoking 04/07/2019 [facility] completed [facility] [place] [facility] 05:06:00 AM [facility] EDT Smoking 04/07/2019 [facility] completed [facility] [place] [facility] 05:00:00 AM [facility] EDT Smoking 04/06/2019 [facility] completed [facility] [place] [facility] 12:48:00 PM [facility] EDT Smoking 04/06/2019 [facility] completed [facility] [place] [facility] 12:45:00 PM [facility] EDT Smoking 04/06/2019 [facility] Ever completed [facility] [place] [facility] 12[facility]39:00 PM [facility] EDT Smoking 04/06/2019 [facility] completed [facility] [place] [facility] 01:58:00 AM [facility] EDT Smoking 04/06/2019 [facility] completed [facility] [place] [facility] 01:46:00 AM [facility] EDT Smoking 04/05/2019 [facility] completed [facility] [place] [facility] 06:22:00 PM [facility] EDT Smoking 04/05/2019 [facility] completed [facility] [place] [facility] 04[facility]17:00 PM [facility] EDT Smoking 04/05/2019 [facility] completed [facility] [place] [facility] 03:18:00 PM [facility] EDT Smoking 04/05/2019 [facility] completed [facility] [place] [facility] 06:37:00 AM [facility] EDT Smoking 04/04/2019 [facility] completed [facility] [place] [facility] 09:56:00 PM [facility] EDT Smoking 04/04/2019 [facility] completed [facility] [place] [facility] 06:00:00 PM [facility] EDT Smoking 04/04/2019 [facility] completed [facility] [place] [facility] 05:15:00 PM [facility] EDT Smoking 04/03/2019 [facility] completed [facility] [place] [facility] 09:21:00 PM [facility] EDT Smoking 04/03/2019 [facility] completed [facility] [place] [facility] 06:18:00 PM [facility]T Smoking 04/03/2019 [facility] completed [facility] [place] [facility] 06:06:00 PM [facility]T Smoking 04/02/2019 [facility] completed [facility] [place] [facility] 10:11:00 PM [facility] EDT Smoking 04/02/2019 [facility] completed [facility] [place] [facility] 08:20:00 PM [facility]T Smoking 04/02/2019 [facility] completed [facility] [place] [facility] 08[facility]17:00 PM [facility]T Smoking 04/01/2019 [facility] completed [facility] [place] [facility] 07:46:00 PM [facility]T Smoking 03/31/2019 [facility] completed [facility] [place] [facility] 02:25:00 PM [facility]T Smoking 03/31/2019 [facility] completed [facility] [place] [facility] 05:43:00 AM [facility] EDT Smoking 03/30/2019 [facility] completed [facility] [place] [facility] 07:19:00 PM [facility] EDT Smoking 03/30/2019 [facility] completed [facility] [place] [facility] 05:35:00 PM [facility] EDT Smoking 03/30/2019 [facility] completed [facility] [place] [facility] 04:53:00 PM [facility] EDT Smoking 03/26/2019 [facility] completed [facility] [place] [facility] 07:21:00 PM [facility]T Smoking 03/26/2019 [facility] completed [facility] [place] [facility] 06:57:00 PM [facility]T Smoking 03/26/2019 [facility] completed [facility] [place] [facility] 06:18:00 PM [facility] EDT Smoking 03/25/2019 [facility] completed [facility] [place] [facility] 09:21:00 PM [facility]T Smoking 03/25/2019 [facility] completed [facility] [place] [facility] 04:38:00 PM [facility] EDT Smoking 03/25/2019 [facility] completed [facility] [place] [facility] 04:03:00 PM [facility]T Smoking 03/24/2019 [facility] completed [facility] [place] [facility] 10:10:00 PM [facility] EDT Smoking 03/24/2019 [facility] completed [facility] [place] [facility] 08:20:00 PM [facility] EDT Smoking 03/24/2019 [facility] completed [facility] [place] [facility] 08:08:00 PM [facility]T Smoking 03/24/2019 [facility] completed [facility] [place] [facility] 12:30:00 PM [facility] EDT Smoking 03/23/2019 [facility] completed [facility] [place] [facility] 01:55:00 PM [facility] EDT Smoking 03/23/2019 [facility] completed [facility] [place] [facility] 01:41:00 PM [facility] EDT Smoking 03/23/2019 [facility] completed [facility] [place] [facility] 01:35:00 PM [facility] EDT Smoking 03/22/2019 [facility] completed [facility] [place] [facility] 11:29:00 PM [facility]T Smoking 03/22/2019 [facility] completed [facility] [place] [facility] 11:25:00 PM [facility] EDT Smoking 03/22/2019 [facility] completed [facility] [place] [facility] 11:22:00 PM [facility] EDT Smoking 03/16/2019 [facility] completed [facility] [place] [facility] 11:18:00 PM [facility] EDT Smoking 03/16/2019 [facility] Ever completed [facility] [place] [facility] 09:45:00 PM [facility] EDT Smoking 03/16/2019 [facility] Ever completed [facility] [place] [facility] 09:36:00 PM [facility] EDT Smoking 03/11/2019 [facility] completed [facility] [place] [facility] 07:00:00 PM [facility] EDT Smoking 03/11/2019 [facility] completed [facility] [place] [facility] 06:56:00 PM [facility] EDT Smoking 03/11/2019 [facility] completed [facility] [place] [facility] 06:36:00 PM [facility]T Smoking 03/10/2019 [facility] completed [facility] [place] [facility] 07:19:00 PM [facility] EDT Smoking 03/10/2019 [facility] completed [facility] [place] [facility] 06:25:00 PM [facility]T Smoking 03/10/2019 [facility] completed [facility] [place] [facility] 06:19:00 PM [facility] Smoking 03/05/2019 [facility] completed [facility] [place] [facility] 08:55:00 PM [facility]T Smoking 03/05/2019 [facility] completed [facility] [place] [facility] 08:46:00 PM [facility] Smoking 03/04/2019 [facility] completed [facility] [place] [facility] 10:56:00 PM [facility]T Smoking 03/04/2019 [facility] Ever completed [facility] [place] [facility] 10:40:00 PM [facility]T Smoking 03/04/2019 [facility] completed [facility] [place] [facility] 10:37:00 PM [facility] Smoking 03/04/2019 [facility] completed [facility] [place] [facility] 02:48:00 AM [facility]T Smoking 03/03/2019 [facility] completed [facility] [place] [facility] 07:07:00 PM [facility]T Smoking 03/03/2019 [facility] completed [facility] [place] [facility] 06:50:00 PM [facility]T Smoking 03/03/2019 [facility] completed [facility] [place] [facility] 06:47:00 PM [facility]T Smoking 03/02/2019 [facility] completed [facility] [place] [facility] 05:24:00 PM [facility]T Smoking 03/02/2019 [facility] completed [facility] [place] [facility] 05:00:00 PM [facility]T Smoking 03/02/2019 [facility] completed [facility] [place] [facility] 04:30:00 PM [facility] Smoking 03/01/2019 [facility] completed [facility] [place] [facility] 07:48:00 PM [facility] Smoking 03/01/2019 [facility] completed [facility] [place] [facility] 07:46:00 PM [facility]T Smoking 03/01/2019 [facility] completed [facility] [place] [facility] 07:42:00 PM [facility] Smoking 03/01/2019 [facility] completed [facility] [place] [facility] 12:00:00 PM [facility] Smoking 02/28/2019 [facility] completed [facility] [place] [facility] 07:57:00 PM [facility]T Smoking 02/28/2019 [facility] completed [facility] [place] [facility] 07:27:00 PM [facility]T Smoking 02/28/2019 [facility] completed [facility] [place] [facility] 07:23:00 PM [facility]T Smoking 02/27/2019 [facility] completed [facility] [place] [facility] 05:10:00 PM [facility] Smoking 02/24/2019 [facility] completed [facility] [place] [facility] 03:02:00 PM [facility]T Smoking 02/24/2019 [facility] completed [facility] [place] [facility] 01:40:00 PM [facility] Smoking 02/24/2019 [facility] completed [facility] [place] [facility] 01:32:00 PM [facility] Smoking 02/24/2019 [facility] completed [facility] [place] [facility] 12:17:00 AM [facility] Smoking 02/23/2019 [facility] completed [facility] [place] [facility] 11:00:00 PM [facility] Smoking 02/23/2019 [facility] completed [facility] [place] [facility] 10:51:00 PM [facility] Smoking 02/23/2019 Not Known completed Not Known [facility] 05:00:00 PM [facility] Smoking 02/23/2019 Not Known completed Not Known [facility] 04:30:00 PM [facility] Smoking 02/23/2019 Not Known completed Not Known [facility] 04:10:00 PM [facility]T Smoking 02/23/2019 Not Known completed Not Known [facility] 04:01:00 PM [facility] Smoking 02/23/2019 [facility] completed [facility] [place] [facility] 05:51:00 AM [facility] Smoking 02/22/2019 [facility] completed [facility] [place] [facility] 06:24:00 PM [facility] Smoking 02/22/2019 [facility] completed [facility] [place] [facility] 05:57:00 PM [facility]T Smoking 02/22/2019 [facility] completed [facility] [place] [facility] 05:48:00 PM [facility] Smoking 02/21/2019 [facility] completed [facility] [place] [facility] 07:23:00 PM [facility] Smoking 02/21/2019 [facility] completed [facility] [place] [facility] 06:26:00 PM [facility] Smoking 02/21/2019 [facility] completed [facility] [place] [facility] 05:29:00 PM [facility] Smoking 02/19/2019 [facility] completed [facility] [place] [facility] 10:33:00 PM [facility] Smoking 02/19/2019 [facility] completed [facility] [place] [facility] 04:53:00 PM [facility] Smoking 02/19/2019 [facility] completed [facility] [place] [facility] 04:45:00 PM [facility] Smoking 02/19/2019 [facility] completed [facility] [place] [facility] 04:38:00 PM [facility] Smoking 02/18/2019 [facility] completed [facility] [place] [facility] 06:23:00 PM [facility] Smoking 02/18/2019 [facility] completed [facility] [place] [facility] 06:01:00 PM [facility] Smoking 02/18/2019 [facility] completed [facility] [place] [facility] 05:48:00 PM [facility] Smoking 02/17/2019 [facility] completed [facility] 09:00:00 PM [facility] Smoking 02/17/2019 [facility] completed [facility] [place] [facility] 08:28:00 PM [facility] Smoking 02/17/2019 [facility] completed [facility] [place] [facility] 07:42:00 PM [facility] Smoking 02/17/2019 [facility] completed [facility] 12:06:00 PM [facility] Smoking 02/17/2019 [facility] completed [facility] 11:49:00 AM [facility] Smoking 02/16/2019 [facility] completed [facility] [place] [facility] 09:19:00 PM [facility] Smoking 02/16/2019 [facility] completed [facility] [place] [facility] 09:01:00 PM [facility] Smoking 02/16/2019 [facility] completed [facility] 09:00:00 PM [facility] Smoking 02/15/2019 [facility] completed [facility] [place] [facility] 04:16:00 PM [facility] Smoking 02/15/2019 [facility] completed [facility] [place] [facility] 01:42:00 PM [facility] Smoking 02/15/2019 [facility] completed [facility] 01:38:00 PM [facility] Smoking 02/14/2019 [facility] completed [facility] 09:18:00 PM Smoked Smoked [facility]2019 [facility] completed [facility] 08:24:00 PM [facility] 02/14/2019 [facility] [place] [facility] 08[facility]17:00 PM [facility] 02/12/2019 [facility] completed [facility] [place] [facility] 04:00:00 PM [facility] 02/12/2019 [facility] completed [facility] [place] [facility] 02:05:00 PM [facility] 02/12/2019 [facility] completed [facility] [place] [facility] 04:16:00 AM [facility] 02/11/2019 [facility] completed [facility] [place] [facility] 09:02:00 PM [facility] 02/11/2019 [facility] completed [facility] [place] [facility] 08:05:00 PM [facility] 02/11/2019 [facility] completed [facility] [place] [facility] 02:04:00 PM [facility] 02[facility]11/2019 [facility] completed [facility] [place] [facility] 01:59:00 PM [facility] 02/11/2019 [facility] completed [facility] [place] [facility] 01:53:00 PM [facility] 02/09/2019 [facility] completed [facility] [place] [facility] 09:28:00 PM [facility] 02/09/2019 [facility] completed [facility] [place] [facility] 09:01:00 PM [facility] 02/08/2019 [facility] completed [facility] [place] [facility] 01:43:00 PM [facility] 02/08/2019 [facility] completed [facility] [place] [facility] 01:33:00 PM [facility] 02/08/2019 [facility] completed [facility] [place] [facility] 01:31:00 PM [facility] 02/07/2019 [facility] completed [facility] [place] [facility] 11:13:00 PM [facility] 02[facility]07/2019 [facility] completed [facility] [place] [facility] 10:58:00 PM [facility] 02/07/2019 [facility] completed [facility] [place] [facility] 09:50:00 PM [facility] 02/05/2019 [facility] completed [facility] [place] [facility] 06:16:00 AM [facility] 02/04/2019 [facility] completed [facility] [place] [facility] 06:55:00 PM [facility] 02/04/2019 [facility] completed [facility] [place] [facility] 06:37:00 PM [facility] 02/01/2019 [facility] completed [facility] [place] [facility] 09:38:00 PM [facility] 02/01/2019 [facility] completed [facility] [place] [facility] 02:51:00 PM [facility] 01/30/2019 [facility] completed [facility] [place] [facility] 02:15:00 AM [facility] 01/29/2019 [facility] completed [facility] [place] [facility] 11:38:00 PM [facility] 01/29/2019 [facility] completed [facility] [place] [facility] 10:00:00 PM [facility] 01/29/2019 [facility] completed [facility] [place] [facility] 12:22:00 PM [facility] 01/29/2019 [facility] completed [facility] [place] [facility] 12:18:00 PM [facility] 01/29/2019 [facility] completed [facility] [place] [facility] 12:15:00 PM [facility] 01/26/2019 [facility] completed [facility] [place] [facility] 07:25:00 PM [facility] 01/26/2019 [facility] completed [facility] [place] [facility] 06:40:00 PM [facility] 01/26/2019 [facility] completed [facility] [place] [facility] 06:37:00 PM [facility] 01/25/2019 Not Known completed Not Known [facility] [place] 11:11:00 AM [facility] 01/24/2019 Not Known completed Not Known [facility] 10:03:00 PM [facility] 01/24/2019 [facility] completed [facility] [place] [facility] 08:33:00 PM [facility] 01/24/2019 [facility] completed [facility] [place] [facility] 08:13:00 PM [facility] 01/24/2019 [facility] completed [facility] [place] [facility] 07:37:00 PM [facility] 01/20/2019 Not Known completed Not Known [facility] [place] 12:49:00 AM [facility] 01/19/2019 Not Known completed Not Known [facility] 08:24:00 PM [facility] 01/19/2019 [facility] completed [facility] [place] [facility] 12:50:00 PM [facility] 01/19/2019 [facility] completed [facility] [place] [facility] 12:49:00 PM [facility] 01/19/2019 [facility] completed [facility] [place] [facility] 12:46:00 PM [facility] 01/18/2019 [facility] completed [facility] [place] [facility] 04:30:00 PM [facility] 01/18/2019 [facility] completed [facility] [place] [facility] 04:17:00 PM [facility] 01/18/2019 [facility] completed [facility] [place] [facility] 04:01:00 PM [facility] 01/17/2019 [facility] completed [facility] [place] [facility] 06[facility]34:00 PM [facility] 01/17/2019 [facility] completed [facility] [place] [facility] 05:50:00 PM [facility] 01/15/2019 [facility] completed [facility] [place] [facility] 08:42:00 PM [facility] 01/15/2019 [facility] completed [facility] [place] [facility] 08:40:00 PM [facility] 01/15/2019 [facility] completed [facility] [place] [facility] 08:12:00 PM [facility] 01/13/2019 [facility] completed [facility] [place] [facility] 07:00:00 AM [facility] 01/12/2019 [facility] completed [facility] [place] [facility] 07:35:00 PM [facility] 01/12/2019 [facility] completed [facility] [place] [facility] 07:28:00 PM [facility] 01/12/2019 [facility] completed [facility] [place] [facility] 07:23:00 PM [facility] 01/11/2019 [facility] completed [facility] [place] [facility] 03:35:00 PM [facility] 01/11/2019 [facility] completed [facility] [place] [facility] 03:19:00 PM [facility] 01/11/2019 [facility] completed [facility] [place] [facility] 03:01:00 PM [facility] 12/30/2018 [facility] completed [facility] [place] [facility] 03:50:00 AM [facility] 12/29/2018 [facility] completed [facility] [place] [facility] 11:33:00 PM [facility] 12/29/2018 [facility] completed [facility] [place] [facility] 09:04:00 PM [facility] 12/28/2018 [facility] completed [facility] [place] [facility] 06:48:00 PM [facility] 12/28/2018 [facility] completed [facility] [place] [facility] 06:48:00 PM [facility] 12/26/2018 [facility] completed [facility] [place] [facility] 08:45:00 PM [facility] 12/26/2018 [facility] completed [facility] [place] [facility] 06:48:00 PM [facility] 12/26/2018 [facility] completed [facility] [place] [facility] 06:46:00 PM [facility] 12/25/2018 [facility] completed [facility] [place] [facility] 07:02:00 PM [facility] 12[facility]25/2018 [facility] completed [facility] [place] [facility] 07:00:00 PM [facility] 12/25/2018 [facility] completed [facility] [place] [facility] 06:30:00 PM [facility] 12/24/2018 [facility] completed [facility] [place] [facility] 03:57:00 PM [facility] 12/24/2018 [facility] completed [facility] [place] [facility] 03:21:00 PM [facility] 12/23/2018 [facility] completed [facility] [place] [facility] 09:50:00 PM [facility] 12/23/2018 [facility] completed [facility] [place] [facility] 09:35:00 PM [facility] 12/23/2018 [facility] completed [facility] [place] [facility] 08:45:00 PM [facility] 12/23/2018 [facility] completed [facility] [place] [facility] 08:41:00 PM [facility] 12/23/2018 [facility] completed [facility] [place] [facility] 06:23:00 PM [facility]oked [facility] 12/23/2018 [facility] completed [facility] [place] [facility] 04:46:00 PM [facility] 12/23/2018 [facility] completed [facility] [place] [facility] 04:37:00 PM [facility] 12/22/2018 [facility] completed [facility] [place] [facility] 09:45:00 PM [facility] 12/22/2018 [facility] completed [facility] [place] [facility] 08:25:00 PM [facility] 12/22/2018 [facility] completed [facility] [place] [facility] 08:20:00 PM [facility] 12/22/2018 [facility] completed [facility] [place] [facility] 08:18:00 PM [facility] 12/22/2018 [facility] completed [facility] [place] [facility] 02:40:00 PM [facility]oked [facility] 12/22/2018 [facility] completed [facility] [place] [facility] 02:37:00 PM [facility]oked [facility]oked [facility] 12/22/2018 [facility] completed [facility] [place] [facility] 02:33:00 PM [facility] 12/21/2018 [facility] completed [facility] [place] [facility] 12:35:00 PM [facility]oked [facility] 12/21/2018 [facility] completed [facility] [place] [facility] 12:17:00 PM [facility]oked [facility] 12/21/2018 [facility] completed [facility] [place] [facility] 12:15:00 PM [facility]oked [facility] 12/20/2018 [facility] completed [facility] [place] [facility] 06:05:00 PM [facility]oked [facility] 12/20/2018 [facility] completed [facility] [place] [facility] 03:11:00 PM [facility]oked [facility] 12/20/2018 [facility] completed [facility] [place] [facility] 02:48:00 PM [facility]oked [facility] Sm[facility] 12/19/2018 [facility] completed [facility] [place] [facility] 08:30:00 PM [facility]oked [facility] Sm[facility] 12/19/2018 [facility] completed [facility] [place] [facility] 07:31:00 PM [facility]oked [facility] 12/19/2018 [facility] completed [facility] [place] [facility] 07:28:00 PM [facility]oked [facility] Sm[facility] 12/18/2018 [facility] completed [facility] [place] [facility] 11:58:00 AM [facility]oked [facility] 12/18/2018 [facility] completed [facility] [place] [facility] 11:55:00 AM [facility]oked [facility] 12/18/2018 [facility] completed [facility] [place] [facility] 11:55:00 AM [facility]oked [facility] 12/18/2018 [facility] completed [facility] [place] [facility] 11:50:00 AM [facility]oked [facility] 12/17/2018 [facility] completed [facility] [place] [facility] 01:30:00 PM [facility]oked [facility] Sm[facility] 12/17/2018 [facility] completed [facility] [place] [facility] 01:23:00 PM Smoked [facility]oked [facility] 12/17/2018 [facility] completed [facility] [place] [facility] 04:11:00 AM [facility]oked [facility] 12/17/2018 [facility] completed [facility] [place] [facility] 04:10:00 AM [facility]oked [facility] 12/17/2018 [facility] completed [facility] [place] [facility] 04:00:00 AM [facility]oked [facility]oked [facility] 12/16/2018 [facility] completed [facility] [place] [facility] 04:59:00 PM [facility]oked [facility]oked [facility] 12/16/2018 [facility] completed [facility] [place] [facility] 02:32:00 PM [facility]oked [facility]oked [facility] 12/16/2018 [facility] completed [facility] [place] [facility] 02:31:00 PM [facility]oked [facility]oked [facility] 12/16/2018 [facility] completed [facility] [place] [facility] 02:30:00 PM Smoked [facility]oked [facility] 12/15/2018 [facility] completed [facility] [place] [facility] 06:06:00 PM [facility]oked [facility]oked [facility] 12/15/2018 [facility] completed [facility] [place] [facility] 06:06:00 PM [facility]oked [facility]oked [facility] Sm[facility] 12/15/2018 [facility] completed [facility] [place] [facility] 05:56:00 PM [facility]oked [facility]oked [facility] 12/13/2018 [facility] completed [facility] [place] [facility] 05:00:00 PM Smoked [facility]oked [facility] Sm[facility] 12/13/2018 [facility] completed [facility] [place] [facility] 04:10:00 PM [facility]oked [facility]oked [facility] Sm[facility] 12/13/2018 [facility] completed [facility] [place] [facility] 04:08:00 PM [facility]oked [facility]oked [facility] 12/12/2018 [facility] completed [facility] [place] [facility] 07:14:00 PM [facility]oked [facility]oked [facility] 12/11/2018 [facility] completed [facility] [place] [facility] 02:15:00 PM Smoked [facility]oked [facility] 12/10/2018 [facility] completed [facility] [place] [facility] 09:56:00 PM [facility]oked [facility]oked [facility] 12/10/2018 [facility] completed [facility] [place] [facility] 08:07:00 PM [facility]oked [facility]oked [facility] 12/10/2018 [facility] completed [facility] [place] [facility] 07:27:00 PM [facility]oked [facility]oked [facility] 12/10/2018 [facility] completed [facility] [place] [facility] 01:15:00 AM [facility]oked [facility] 12/10/2018 [facility] completed [facility] [place] [facility] 01:00:00 AM [facility]oked [facility] 12/10/2018 [facility] completed [facility] [place] [facility] 12:24:00 AM [facility]oked [facility] 12/09/2018 [facility] completed [facility] [place] [facility] 12:40:00 PM [facility]oked [facility] 12/09/2018 [facility] completed [facility] [place] [facility] 12:16:00 PM [facility]oked [facility]oked [facility] 12/09/2018 [facility] completed [facility] [place] [facility] 12:15:00 PM [facility]oked [facility]oked [facility] 12/09/2018 [facility] completed [facility] [place] [facility] 12:12:00 PM [facility]oked [facility]oked [facility] 12/08/2018 [facility] completed [facility] [place] [facility] 03:21:00 PM [facility]oked [facility] 12/08/2018 [facility] completed [facility] [place] [facility] 03:07:00 PM [facility]oked [facility] 12/07/2018 [facility] completed [facility] [place] [facility] 02:54:00 PM [facility]oked [facility] 12/07/2018 [facility] completed [facility] [place] [facility] 02:40:00 PM [facility]oked [facility] 12/06/2018 [facility] completed [facility] [place] [facility] 03:45:00 PM [facility]oked [facility]oked [facility] Sm[facility] 12/06/2018 [facility] completed [facility] [place] [facility] 03:43:00 PM [facility]oked [facility] Sm[facility] 12/06/2018 [facility] completed [facility] [place] [facility] 03:41:00 PM [facility]oked [facility]oked [facility] Sm[facility] 12/05/2018 [facility] completed [facility] [place] [facility] 06:33:00 PM Smoked [facility]oked [facility] Sm[facility] 12/05/2018 [facility] completed [facility] [place] [facility] 06:23:00 AM [facility]oked [facility]oked [facility] Sm[facility] 12/04/2018 [facility] completed [facility] [place] [facility] 11:14:00 PM [facility]oked [facility]oked [facility] Sm[facility] 12/04/2018 [facility] completed [facility] [place] [facility] 09:30:00 PM [facility]oked [facility]oked [facility] Sm[facility] 12/02/2018 [facility] completed [facility] [place] [facility] 05:17:00 PM [facility]oked [facility]oked [facility] Sm[facility] 12/02/2018 [facility] completed [facility] [place] [facility] 05:17:00 PM Smoked [facility]oked [facility] Sm[facility] 12/01/2018 [facility] completed [facility] [place] [facility] 07:48:00 PM Smoked Smoked [facility] Sm[facility] 12/01/2018 [facility] completed [facility] [place] [facility] 07:40:00 PM Smoked [facility]oked [facility] Sm[facility] 12/01/2018 [facility] completed [facility] [place] [facility] 07:20:00 PM Smoked Smoked [facility] Sm[facility] 11/30/2018 [facility] completed [facility] [place] [facility] 06:50:00 PM Smoked [facility]oked [facility] Sm[facility] 11/30/2018 [facility] completed [facility] [place] [facility] 06:29:00 PM Smoked [facility]oked [facility] Sm[facility] 11/30/2018 [facility] completed [facility] [place] [facility] 03:36:00 AM Smoked [facility]oked [facility] Sm[facility] 11/30/2018 [facility] completed [facility] [place] [facility] 03:36:00 AM Smoked [facility]oked [facility] Sm[facility] 11/30/2018 [facility] completed [facility] [place] [facility] 03:29:00 AM Smoked [facility]oked [facility] Sm[facility] 11/28/2018 [facility] completed [facility] [place] [facility] 11:14:00 PM Smoked [facility]oked [facility] Sm[facility] 11/28/2018 [facility] completed [facility] [place] [facility] 11:01:00 PM Smoked [facility]oked [facility] Sm[facility] 11/28/2018 [facility] completed [facility] [place] [facility] 10:58:00 PM Smoked [facility]oked [facility] Sm[facility] 11/28/2018 [facility] completed [facility] [place] [facility] 03:29:00 PM [facility]oked [facility]oked [facility] Sm[facility] 11/28/2018 [facility] completed [facility] [place] [facility] 02:17:00 PM Smoked [facility]oked [facility] Sm[facility] 11/28/2018 [facility] completed [facility] [place] [facility] 01:29:00 AM Smoked [facility]oked [facility] Sm[facility] 11/28/2018 [facility] completed [facility] [place] [facility] 01:27:00 AM [facility]oked [facility] Sm[facility] 11/28/2018 [facility] completed [facility] [place] [facility] 01:23:00 AM [facility]oked [facility] Sm[facility] 11/27/2018 [facility] completed [facility] [place] [facility] 03:56:00 PM [facility]oked [facility]oked [facility] Sm[facility] 11/27/2018 [facility] completed [facility] [place] [facility] 03:50:00 PM [facility]oked [facility] Sm[facility] 11/25/2018 [facility] completed [facility] [place] [facility] 07:40:00 PM [facility]oked [facility] Sm[facility] 11/25/2018 [facility] completed [facility] [place] [facility] 07:34:00 PM [facility]oked [facility] Smoking 11/25/2018 [facility] completed [facility] [place] [facility] 07:06:00 PM [facility]oked [facility] Sm[facility] 11/24/2018 [facility] completed [facility] [place] [facility] 04:30:00 PM [facility]oked [facility] Sm[facility] 11/24/2018 [facility] completed [facility] [place] [facility] 04:21:00 PM [facility]oked [facility] Sm[facility] 11/24/2018 [facility] completed [facility] [place] [facility] 04:06:00 PM [facility]oked [facility] Sm[facility] 11/23/2018 [facility] completed [facility] [place] [facility] 06:00:00 PM [facility]oked [facility] Sm[facility] 11/23/2018 [facility] completed [facility] [place] [facility] 05:52:00 PM [facility] Sm[facility] 11/16/2018 Smoker, Status completed Smoker, Status [facility] 08:49:00 PM Not Known Not Known [facility] 11/16/2018 Smoker, Status completed Smoker, Status [facility] 08:05:00 PM Not Known Not Known [facility] 11/16/2018 Smoker, Status completed Smoker, Status [facility] 07:29:00 PM Not Known Not Known [facility] Sm[facility] 11/16/2018 [facility] completed [facility] [place] [facility] 12:53:00 AM Smoked Smoked [facility] Sm[facility] 11/16/2018 [facility] completed [facility] [place] [facility] 12:25:00 AM [facility]oked [facility] Sm[facility] 11/16/2018 [facility] completed [facility] [place] [facility] 12:20:00 AM [facility]oked [facility] Sm[facility] 11/14/2018 [facility] completed [facility] [place] [facility] 08:07:00 PM [facility]oked [facility] Sm[facility] 11/14/2018 [facility] completed [facility] [place] [facility] 07:57:00 PM [facility]oked [facility] Sm[facility] 11/14/2018 [facility] completed [facility] [place] [facility] 07:53:00 PM Smoked [facility]oked [facility] Sm[facility] 11/13/2018 [facility] completed [facility] [place] [facility] 05:45:00 PM Sm[facility]oked [facility] Sm[facility] 11/13/2018 [facility] completed [facility] [place] [facility] 04:18:00 PM [facility]oked [facility] Sm[facility] 11/12/2018 [facility] completed [facility] [place] [facility] 06:00:00 AM [facility]oked [facility] Sm[facility] 11/11/2018 [facility] completed [facility] [place] [facility] 07:03:00 PM [facility]oked [facility] Sm[facility] 11/11/2018 [facility] completed [facility] [place] [facility] 06:46:00 PM [facility]oked [facility] Sm[facility] 11/11/2018 [facility] completed [facility] [place] [facility] 12:05:00 AM [facility]oked [facility] Sm[facility] 11/10/2018 [facility] completed [facility] [place] [facility] 09:32:00 PM [facility]oked [facility] Sm[facility] 11/10/2018 [facility] completed [facility] [place] [facility] 09:29:00 PM [facility]oked [facility] Sm[facility] 11/10/2018 [facility] completed [facility] [place] [facility] 02:48:00 PM [facility]oked [facility] Sm[facility] 11/10/2018 [facility] completed [facility] [place] [facility] 02:26:00 PM [facility]oked [facility] Sm[facility] 11/09/2018 [facility] completed [facility] [place] [facility] 02:31:00 PM [facility]oked [facility]oked [facility] Sm[facility] 11/09/2018 [facility] completed [facility] [place] [facility] 01:55:00 PM [facility]oked [facility] Sm[facility] 11/09/2018 [facility] completed [facility] [place] [facility] 01:41:00 PM Smoked [facility]oked [facility] Sm[facility] 11/04/2018 [facility] completed [facility] [place] [facility] 05:25:00 PM Smoked [facility]oked [facility] Sm[facility] 11/04/2018 [facility] completed [facility] [place] [facility] 05:20:00 PM Smoked [facility]oked [facility] Sm[facility] 11/01/2018 [facility] completed [facility] [place] [facility] 01:00:00 PM Smoked [facility]oked [facility] Sm[facility] 11/01/2018 [facility] completed [facility] [place] [facility] 12:54:00 PM Smoked [facility]oked [facility] Sm[facility] 11/01/2018 [facility] completed [facility] [place] [facility] 12:54:00 PM Smoked Smoked [facility] Sm[facility] 10/30/2018 [facility] completed [facility] [place] [facility] 03:12:00 PM Smoked [facility]oked [facility] Sm[facility] 10/30/2018 [facility] completed [facility] [place] [facility] 01:30:00 PM Smoked [facility]oked [facility] Sm[facility] 10/30/2018 [facility] completed [facility] [place] [facility] 01:10:00 PM Smoked [facility]oked [facility] Sm[facility] 10/30/2018 [facility] completed [facility] [place] [facility] 12:33:00 AM Smoked [facility]oked [facility] Sm[facility] 10/30/2018 [facility] completed [facility] [place] [facility] 12:18:00 AM Smoked Smoked [facility] Smoking 10/29/2018 [facility] completed [facility] [place] [facility] 02:16:00 PM Smoked [facility]oked [facility] Sm[facility] 10/29/2018 [facility] completed [facility] [place] [facility] 01:39:00 PM Smoked [facility]oked [facility] Smoking 10/29/2018 [facility] completed [facility] [place] [facility] 01:11:00 PM Smoked [facility]oked [facility] Smoking 10/23/2018 [facility] completed [facility] [place] [facility] 05:32:00 PM Smoked Smoked [facility] Smoking 10/23/2018 [facility] completed [facility] [place] [facility] 05:27:00 PM Smoked [facility]oked [facility] Smoking 10/23/2018 [facility] completed [facility] [place] [facility] 05:23:00 PM Smoked [facility]oked [facility] Smoking 10/23/2018 [facility] completed [facility] [place] [facility] 02:41:00 PM Smoked Smoked [facility] Smoking 10/23/2018 [facility] completed [facility] [place] [facility] 02:29:00 PM Smoked Smoked [facility] Sm[facility] 10/23/2018 [facility] completed [facility] [place] [facility] 07:21:00 AM Smoked Smoked [facility] Smoking 10/22/2018 [facility] completed [facility] [place] [facility] 11:00:00 PM Smoked [facility]oked [facility] Smoking 10/22/2018 [facility] completed [facility] [place] [facility] 07:18:00 PM Smoked Smoked [facility] Smoking 10/22/2018 [facility] completed [facility] [place] [facility] 07:18:00 PM Smoked Smoked [facility] Smoking 10/22/2018 [facility] completed [facility] [place] [facility] 05:41:00 AM Smoked Smoked [facility] Smoking 10/21/2018 [facility] completed [facility] [place] [facility] 07:47:00 PM Smoked Smoked [facility] Sm[facility] 10/21/2018 [facility] completed [facility] [place] [facility] 07:44:00 PM Smoked Smoked [facility] Sm[facility] 10/21/2018 [facility] completed [facility] [place] [facility] 07:41:00 PM Smoked [facility] 10[facility]20[facility]2018 [facility] [place] [facility] 05[facility]34:00 PM [facility] 10/20/2018 [facility] [place] [facility] 05:15:00 PM [facility] 10/20/2018 [facility] [place] [facility] 04:27:00 PM [facility] 10/19/2018 [facility] completed [facility] [place] [facility] 01:24:00 PM [facility] 10/19/2018 [facility] [place] [facility] 01:17:00 PM [facility] 10/19/2018 [facility] [place] [facility] 01:13:00 PM [facility] 10/19/2018 [facility] [place] [facility] 03:10:00 AM [facility] 10/18/2018 [facility] [place] [facility] 08:22:00 PM [facility] 10/18/2018 [facility] [place] [facility] 07:00:00 PM [facility] Sm[facility] 10/18/2018 [facility] [place] [facility] 06:56:00 PM [facility] 10/18/2018 [facility] [place] [facility] 03:58:00 AM [facility] 10/18/2018 [facility] [place] [facility] 12:34:00 AM [facility] 10/18/2018 [facility] [place] [facility] 12:34:00 AM [facility] 10/17/2018 [facility] [place] [facility] 04:23:00 PM [facility] Sm[facility] 10/16/2018 [facility] [place] [facility] 07:23:00 PM [facility] Sm[facility] 10/16/2018 [facility] [place] [facility] 05:55:00 PM [facility] 10/16/2018 [facility] [place] [facility] 04:39:00 PM [facility] 10/14/2018 [facility] [place] [facility] 02:00:00 PM [facility] 10/14/2018 [facility] [place] [facility] 01:38:00 PM [facility] Sm[facility] 10/14/2018 [facility] [place] [facility] 01:36:00 PM [facility] Sm[facility] 10/12/2018 [facility] [place] [facility] 10:15:00 PM [facility] 10/12/2018 [facility] [place] [facility] 09:59:00 PM [facility] 10/12/2018 [facility] [place] [facility] 09:40:00 PM [facility] 10/11/2018 [facility] [place] [facility] 07:07:00 PM [facility] Sm[facility] 10/11/2018 [facility] [place] [facility] 06:35:00 PM [facility] Sm[facility] 10/11/2018 [facility] [place] [facility] 06:25:00 PM [facility] 10/08/2018 [facility] [place] [facility] 03:32:00 PM [facility] 10/08/2018 [facility] [place] [facility] 03:23:00 PM [facility] 10/08/2018 [facility] [place] [facility] 03:21:00 PM [facility] 10/08/2018 [facility] [place] [facility] 02:52:00 PM [facility] Sm[facility] 10/04/2018 [facility] [place] [facility] 07:55:00 AM [facility] 10/04/2018 [facility] [place] [facility] 07:22:00 AM [facility] 10/04/2018 [facility] [place] [facility] 07:16:00 AM [facility] 10/03/2018 [facility] [place] [facility] 04:44:00 PM [facility] 10/03/2018 [facility] [place] [facility] 04:37:00 PM [facility] Sm[facility] 10/03/2018 [facility] completed [facility] [place] [facility] 04:31:00 PM [facility] Sm[facility] 10/02/2018 [facility] completed [facility] [place] [facility] 07:48:00 PM [facility] Sm[facility] 10/02/2018 [facility] completed [facility] [place] [facility] 06:32:00 PM [facility] Sm[facility] 10/01/2018 [facility] [place] [facility] 10:41:00 PM [facility] Sm[facility] 10/01/2018 [facility] [place] [facility] 10:18:00 PM [facility] Sm[facility] 10/01/2018 [facility] completed [facility] [place] [facility] 01:45:00 AM [facility] Sm[facility] 09/30/2018 [facility] completed [facility] [place] [facility] 10:45:00 PM [facility] Sm[facility] 09/30/2018 [facility] [place] [facility] 10:39:00 PM [facility] Sm[facility] 09/30/2018 [facility] [place] [facility] 12:10:00 PM [facility] Sm[facility] 09/30/2018 [facility] completed [facility] [place] [facility] 12:10:00 PM [facility] Sm[facility] 09/30/2018 [facility] [place] [facility] 12:07:00 PM [facility] Sm[facility] 09/30/2018 [facility] [place] [facility] 12:07:00 PM [facility] 09/26/2018 Not Known completed Not Known [place] 11:15:00 AM [facility] 09/26/2018 [facility] [place] [facility] 04:01:00 AM [facility] Sm[facility] 09/26/2018 Not Known completed Not Known [place] 01:09:00 AM [facility] 09/25/2018 [facility] [place] [facility] 04:48:00 PM [facility] Sm[facility] 09[facility]25/2018 [facility] [place] [facility] 04:23:00 PM [facility] Sm[facility] 09[facility]23/2018 [facility] completed [facility] [place] [facility] 05:20:00 PM [facility] Sm[facility] 09/23/2018 [facility] completed [facility] [place] [facility] 05:19:00 PM [facility] Sm[facility] 09/23/2018 [facility] [place] [facility] 05:13:00 PM [facility] Sm[facility] 09/22/2018 [facility] [place] [facility] 09:00:00 PM [facility] Sm[facility] 09/22/2018 [facility] [place] [facility] 08:18:00 PM [facility] Sm[facility] 09/22/2018 [facility] completed [facility] [place] [facility] 08:15:00 PM [facility] Sm[facility] 09/21/2018 [facility] completed [facility] [place] [facility] 03:36:00 AM [facility] Sm[facility] 09/20/2018 [facility] completed [facility] [place] [facility] 06:54:00 PM [facility] Sm[facility] 09/20/2018 [facility] [place] [facility] 06:44:00 PM [facility] Sm[facility] 09/20/2018 [facility] [place] [facility] 06:28:00 PM [facility] Sm[facility] 09/17/2018 [facility] [place] [facility] 10:32:00 PM [facility] Sm[facility] 09/17/2018 [facility] [place] [facility] 10:11:00 PM [facility] Sm[facility] 09/17/2018 [facility] [place] [facility] 09:53:00 PM [facility] Sm[facility] 09/17/2018 [facility] [place] [facility] 07[facility]48:00 PM [facility] Sm[facility] 09/17/2018 [facility] [place] [facility] 04:00:00 PM [facility] Sm[facility] 09/17/2018 [facility] [place] [facility] 04:00:00 PM [facility] Sm[facility] 09/17/2018 [facility] [place] [facility] 03:37:00 PM [facility] Sm[facility] 09/16/2018 [facility] [place] [facility] 09:08:00 PM [facility] Sm[facility] 09/16/2018 [facility] [place] [facility] 07:49:00 PM [facility] Sm[facility] 09/16/2018 [facility] [place] [facility] 07:38:00 PM [facility] Sm[facility] 09/16/2018 [facility] [place] [facility] 01:49:00 PM [facility] Sm[facility] 09/16/2018 [facility] [place] [facility] 01:44:00 PM [facility] Sm[facility] 09/16/2018 [facility] [place] [facility] 01:37:00 PM [facility] Sm[facility] 09/15/2018 [facility] [place] [facility] 10:12:00 PM [facility] Sm[facility] 09/15/2018 [facility] [place] [facility] 09[facility]50:00 PM [facility] Sm[facility] 09/15/2018 [facility] [place] [facility] 09[facility]46:00 PM [facility] Sm[facility] 09[facility]14/2018 [facility] [place] [facility] 08[facility]43:00 AM [facility] Sm[facility] 09/14/2018 [facility] [place] [facility] 07:56:00 AM [facility] Sm[facility] 09[facility]14/2018 [facility] completed [facility] [place] [facility] 07:55:00 AM [facility] Sm[facility] 09/13/2018 [facility] [place] [facility] 09:15:00 PM [facility] Sm[facility] 09/13/2018 [facility] [place] [facility] 08:00:00 PM [facility] Sm[facility] 09/12/2018 [facility] [place] [facility] 03:10:00 PM [facility] Sm[facility] 09/12/2018 [facility] [place] [facility] 03:00:00 PM [facility] Sm[facility] 09/12/2018 [facility] completed [facility] [place] [facility] 02:55:00 PM [facility] Sm[facility] 09/09/2018 [facility] completed [facility] [place] [facility] 06:00:00 PM [facility] Sm[facility] 09/09/2018 [facility] completed [facility] [place] [facility] 04:15:00 PM [facility] Sm[facility] 09/09/2018 [facility] [place] [facility] 03:45:00 PM [facility] Sm[facility] 09/09/2018 [facility] completed [facility] [place] [facility] 03:35:00 PM [facility] Sm[facility] 09/09/2018 [facility] completed [facility] [place] [facility] 12:56:00 AM [facility] Sm[facility] 09/08/2018 [facility] completed [facility] [place] [facility] 09:31:00 PM [facility] Sm[facility] 09/08/2018 [facility] [place] [facility] 09:29:00 PM [facility] Sm[facility] 09/07/2018 [facility] completed [facility] [place] [facility] 09:10:00 PM [facility] Sm[facility] 09/07/2018 [facility] [place] [facility] 08:10:00 PM [facility] Sm[facility] 09/07/2018 [facility] [place] [facility] 08:07:00 PM [facility] Sm[facility] 08/28/2018 [facility] completed [facility] [place] [facility] 08:35:00 PM [facility] Sm[facility] 08/28/2018 [facility] completed [facility] [place] [facility] 06:07:00 PM [facility] Sm[facility] 08/28/2018 [facility] [place] [facility] 06:04:00 PM [facility] Sm[facility] 08/24/2018 [facility] [place] [facility] 04:20:00 PM [facility] Sm[facility] 08/24/2018 [facility] completed [facility] [place] [facility] 03:40:00 PM [facility] Sm[facility] 08/24/2018 [facility] completed [facility] [place] [facility] 03:35:00 PM [facility] Sm[facility] 08/24/2018 [facility] completed [facility] [place] [facility] 12:14:00 AM [facility] Sm[facility] 08/23/2018 [facility] completed [facility] [place] [facility] 08:30:00 PM [facility] Sm[facility] 08/23/2018 [facility] completed [facility] [place] [facility] 07:54:00 PM [facility] Sm[facility] 08/23/2018 [facility] completed [facility] [place] [facility] 05:40:00 PM [facility] Sm[facility] 08/23/2018 [facility] completed [facility] [place] [facility] 05:34:00 PM [facility] Sm[facility] 08/20/2018 [facility] completed [facility] [place] [facility] 04:40:00 AM [facility] Smoking 08/19/2018 [facility] completed [facility] [place] [facility] 05:22:00 PM [facility] Smoking 08/19/2018 [facility] completed [facility] [place] [facility] 03:59:00 PM [facility] Smoking 08/19/2018 [facility] completed [facility] [place] [facility] 03:59:00 PM [facility] Smoking 08/18/2018 [facility] completed [facility] [place] [facility] 04:47:00 PM [facility] Smoking 08/18/2018 [facility] completed [facility] [place] [facility] 03:06:00 PM [facility] Smoking 08/18/2018 [facility] completed [facility] [place] [facility] 02:44:00 PM [facility] Smoking 08/18/2018 [facility] completed [facility] [place] [facility] 12:00:00 AM [facility] Smoking 08/17/2018 [facility] completed [facility] [place] [facility] 10:00:00 PM [facility] Smoking 08/17/2018 [facility] completed [facility] [place] [facility] 09:54:00 PM [facility] Smoking 08/17/2018 [facility] completed [facility] [place] [facility] 02:04:00 PM [facility] Smoking 08/17/2018 [facility] completed [facility] [place] [facility] 01:56:00 PM [facility] Smoking 08/17/2018 [facility] completed [facility] [place] [facility] 01:55:00 PM [facility] Smoking 08/16/2018 [facility] completed [facility] [place] [facility] 03:11:00 PM [facility] Smoking 08/16/2018 [facility] completed [facility] [place] [facility] 02:47:00 PM [facility] Smoking 08/16/2018 [facility] completed [facility] [place] [facility] 02:41:00 PM [facility] Smoking 08/14/2018 [facility] completed [facility] [place] [facility] 09:26:00 PM [facility] Smoking 08/14/2018 [facility] completed [facility] [place] [facility] 09:24:00 PM [facility] Smoking 08/14/2018 [facility] completed [facility] [place] [facility] 07:57:00 PM [facility] Smoking 08/11/2018 [facility] completed [facility] [place] [facility] 10:59:00 PM [facility] Smoking 08/11/2018 [facility] completed [facility] [place] [facility] 09:20:00 PM [facility] Smoking 08/11/2018 [facility] completed [facility] [place] [facility] 09:20:00 PM [facility] Smoking 08/11/2018 [facility] completed [facility] [place] [facility] 05:50:00 PM [facility] Smoking 08/11/2018 [facility] completed [facility] [place] [facility] 05:44:00 PM [facility] Smoking 08/11/2018 [facility] completed [facility] [place] [facility] 04:42:00 PM [facility] Smoking 08/10/2018 [facility] completed [facility] [place] [facility] 01:35:00 PM [facility] Smoking 08/10/2018 [facility] completed [facility] [place] [facility] 01:32:00 PM [facility] Smoking 08/10/2018 [facility] completed [facility] [place] [facility] 01:24:00 PM [facility] Smoking 08/09/2018 [facility] completed [facility] [place] [facility] 09:00:00 PM [facility] Smoking 08/09/2018 [facility] completed [facility] [place] [facility] 08[facility]21:00 PM [facility] Smoking 08/09/2018 [facility] completed [facility] [place] [facility] 08:15:00 PM [facility] Smoking 08/09/2018 [facility] completed [facility] [place] [facility] 08:03:00 PM [facility] Smoking 08/09/2018 [facility] completed [facility] [place] [facility] 02:43:00 PM [facility] Smoking 08/09/2018 [facility] completed [facility] [place] [facility] 12:19:00 AM [facility] Smoking 08/08/2018 [facility] completed [facility] [place] [facility] 04:51:00 PM [facility] Smoking 08/08/2018 [facility] completed [facility] [place] [facility] 03:45:00 PM [facility] Smoking 08/07/2018 [facility] completed [facility] [place] [facility] 09:53:00 PM [facility] Smoking 08/07/2018 [facility] completed [facility] [place] [facility] 12:34:00 PM [facility] Smoking 08/07/2018 [facility] completed [facility] [place] [facility] 12:30:00 PM [facility] Smoking 08/05/2018 [facility] completed [facility] [place] [facility] 02:15:00 PM [facility] Smoking 08/05/2018 [facility] completed [facility] [place] [facility] 02:11:00 PM [facility] Smoking 08/05/2018 [facility] completed [facility] [place] [facility] 02:09:00 PM [facility] Smoking 08/03/2018 [facility] completed [facility] [place] [facility] 05:46:00 PM [facility] Smoking 08/03/2018 [facility] completed [facility] [place] [facility] 04:46:00 PM [facility] Smoking 08/02/2018 [facility] completed [facility] [place] [facility] 03:01:00 PM [facility] Smoking 08/02/2018 [facility] completed [facility] [place] [facility] 03:00:00 PM [facility] Smoking 07/30/2018 [facility] completed [facility] [place] [facility] 04:28:00 PM [facility] Smoking 07/30/2018 [facility] completed [facility] [place] [facility] 03:54:00 PM [facility] Smoking 07/30/2018 [facility] completed [facility] [place] [facility] 03:54:00 PM [facility] Smoking 07/30/2018 [facility] completed [facility] [place] [facility] 01:12:00 PM [facility] Smoking 07/30/2018 [facility] completed [facility] [place] [facility] 01:00:00 PM [facility] Smoking 07/30/2018 [facility] completed [facility] [place] [facility] 12:43:00 PM [facility] Smoking 07/22/2018 [facility] completed [facility] [place] [facility] 12:44:00 PM [facility] Smoking 07/22/2018 [facility] completed [facility] [place] [facility] 12:42:00 PM [facility] Smoking 07/21/2018 [facility] completed [facility] [place] [facility] 04:22:00 PM [facility] Smoking 07/21/2018 [facility] completed [facility] [place] [facility] 02:18:00 PM [facility] Smoking 07/21/2018 [facility] completed [facility] [place] [facility] 12:00:00 AM [facility] Smoking 07/20/2018 [facility] [place] [facility] 11:37:00 PM [facility] Smoking 07/20/2018 [facility] completed [facility] [place] [facility] 08:00:00 PM [facility] Smoking 07/20/2018 [facility] completed [facility] [place] [facility] 06:36:00 PM [facility] Smoking 07/20/2018 [facility] [place] [facility] 06:30:00 PM [facility] Smoking 07/20/2018 [facility] completed [facility] [place] [facility] 02:50:00 PM [facility] Smoking 07/20/2018 [facility] [place] [facility] 02:28:00 PM [facility] Smoking 07/17/2018 [facility] [place] [facility] 01:20:00 PM [facility] Smoking 07/17/2018 [facility] [place] [facility] 01:00:00 PM [facility] Smoking 07/17/2018 [facility] [place] [facility] 12:44:00 PM [facility] Smoking 07/17/2018 [facility] [place] [facility] 12:06:00 AM [facility] Smoking 07/16/2018 [facility] completed [facility] [place] [facility] 07:34:00 PM [facility] Smoking 07/16/2018 [facility] [place] [facility] 06:31:00 PM [facility] Smoking 07/16/2018 [facility] completed [facility] [place] [facility] 12:02:00 AM [facility] Smoking 07/15/2018 [facility] [place] [facility] 08:07:00 PM [facility] Smoking 07/15/2018 [facility] [place] [facility] 03:33:00 PM [facility] Smoking 07/15/2018 [facility] completed [facility] [place] [facility] 03:26:00 PM [facility] Smoking 07/12/2018 [facility] completed [facility] [place] [facility] 12:15:00 PM [facility] Smoking 07/05/2018 [facility] [place] [facility] 10:15:00 AM [facility] Smoking 07/05/2018 [facility] [place] [facility] 01:12:00 AM [facility] Smoking 07/04/2018 [facility] [place] [facility] 11:54:00 PM [facility] Smoking 07/04/2018 [facility] [place] [facility] 09:19:00 PM [facility] Smoking 07/04/2018 [facility] completed [facility] [place] [facility] 08:50:00 PM [facility] Smoking 07/02/2018 [facility] [place] [facility] 04:01:00 PM [facility] Smoking 07/02/2018 [facility] completed [facility] [place] [facility] 03:56:00 PM [facility] Smoking 07/01/2018 [facility] completed [facility] [place] [facility] 07:00:00 AM [facility] Smoking 07/01/2018 [facility] completed [facility] [place] [facility] 06:43:00 AM [facility] Smoking 07/01/2018 [facility] completed [facility] [place] [facility] 05:36:00 AM [facility] Smoking 07/01/2018 [facility] completed [facility] [place] [facility] 05:20:00 AM [facility] Smoking 06/30/2018 [facility] completed [facility] [place] [facility] 06:58:00 PM [facility] Smoking 06/30/2018 [facility] completed [facility] [place] [facility] 05:05:00 PM [facility] Smoking 06/30/2018 [facility] completed [facility] [place] [facility] 04:45:00 PM [facility] Smoking 06/28/2018 [facility] completed [facility] [place] [facility] 04:35:00 PM [facility] Smoking 06/28/2018 [facility] completed [facility] [place] [facility] 04:32:00 PM [facility] Smoking 06/26/2018 [facility] completed [facility] [place] [facility] 09:32:00 PM [facility] Smoking 06/26/2018 [facility] completed [facility] [place] [facility] 06:45:00 PM [facility] Smoking 06/26/2018 [facility] completed [facility] [place] [facility] 06:34:00 PM [facility] Smoking 06/26/2018 [facility] completed [facility] [place] [facility] 01:54:00 AM [facility] Smoking 06/25/2018 [facility] completed [facility] [place] [facility] 05:18:00 PM [facility] Smoking 06/25/2018 [facility] completed [facility] [place] [facility] 04:57:00 PM [facility] Smoking 06/25/2018 [facility] completed [facility] [place] [facility] 04:56:00 PM [facility] Smoking 06/23/2018 [facility] completed [facility] [place] [facility] 09:32:00 PM [facility] Smoking 06/23/2018 [facility] completed [facility] [place] [facility] 08:07:00 PM [facility] Smoking 06/23/2018 [facility] completed [facility] [place] [facility] 08:01:00 PM [facility] Smoking 06/22/2018 [facility] completed [facility] [place] [facility] 01:08:00 PM [facility] Smoking 06/22/2018 [facility] completed [facility] [place] [facility] 01:04:00 PM [facility] Smoking 06/20/2018 [facility] completed [facility] [place] [facility] 04:17:00 PM [facility] Smoking 06/20/2018 [facility] [place] [facility] 03:45:00 PM [facility] Smoking 06/20/2018 Denies Ever completed [facility] [place] [facility] 03:39:00 PM [facility] EST Smoking 06/20/2018 Denies Ever completed [facility] [place] [facility] 06:24:00 AM Sm[facility] Smoked [facility] EST Smoking 06/19/2018 Denies Ever completed [facility] [place] [facility] 02:01:00 PM Smoked Smoked [facility] EST Smoking 06/19/2018 Denies Ever completed [facility] [place] [facility] 01:43:00 PM Smoked Smoked [facility] EST Smoking 06/19/2018 Denies Ever completed [facility] [place] [facility] 01:32:00 PM Smoked Smoked [facility] EST Smoking 06/19/2018 Denies Ever completed [facility] [place] [facility] 01:45:00 AM Sm[facility] Smoked [facility] EST Smoking 06/19/2018 Denies Ever completed [facility] [place] [facility] 12:30:00 AM [facility] Smoked [facility] EST Smoking 06/17/2018 Denies Ever completed [facility] [place] [facility] 03:30:00 PM [facility]oked [facility] EST Smoking 06/17/2018 Denies Ever completed [facility] [place] [facility] 03:30:00 PM [facility]oked [facility] EST Smoking 06/17/2018 Denies Ever completed [facility] [place] [facility] 03:25:00 PM [facility] Smoked [facility] EST Smoking 06/17/2018 Denies Ever completed [facility] [place] [facility] 03:56:00 AM [facility]oked [facility] EST Smoking 06/16/2018 Denies Ever completed [facility] [place] [facility] 07:57:00 PM [facility] Smoked [facility] EST Smoking 06/16/2018 Denies Ever completed [facility] [place] [facility] 03:54:00 PM [facility] Smoked [facility] EST Smoking 06/16/2018 Denies Ever completed [facility] [place] [facility] 03:44:00 PM Sm[facility] Smoked [facility] EST Smoking 06/13/2018 Denies Ever completed [facility] [place] [facility] 12:30:00 AM Sm[facility] Smoked [facility] EST Smoking 06/13/2018 Denies Ever completed [facility] [place] [facility] 12:02:00 AM [facility]oked [facility] EST Smoking 06/12/2018 Denies Ever completed [facility] [place] [facility] 11:25:00 PM [facility] Smoked [facility] EST Smoking 06/12/2018 Denies Ever completed [facility] 05:29:00 PM Sm[facility] Smoked [facility] EST Smoking 06/12/2018 Denies Ever completed [facility] [place] [facility] 04:12:00 AM [facility]oked [facility] EST Smoking 06/11/2018 Denies Ever completed [facility] [place] [facility] 04:30:00 PM Sm[facility] Smoked [facility] EST Smoking 06/11/2018 Denies Ever completed [facility] [place] [facility] 04:21:00 PM Sm[facility] Smoked [facility] EST Smoking 06/11/2018 Denies Ever completed [facility] 04:17:00 PM [facility]oked [facility] EST Smoking 06/10/2018 Denies Ever completed [facility] 07:29:00 AM [facility]oked [facility] EST Smoking 06/10/2018 Denies Ever completed [facility] 05:47:00 AM [facility]oked [facility] EST Smoking 06/09/2018 Denies Ever completed [facility] 02:34:00 PM Sm[facility] Smoked [facility] EST Smoking 06/09/2018 Denies Ever completed [facility] [place] [facility] 01:46:00 PM Sm[facility] Smoked [facility] EST Smoking 06/09/2018 Daily Smoker completed [facility] Smoker [facility] 01:41:00 PM [facility] EST Smoking 06/09/2018 Daily Smoker completed Daily Smoker [facility] 08:10:00 AM [facility] EST Smoking 06/08/2018 Daily Smoker completed Daily Smoker [facility] 07:53:00 PM [facility] EST Smoking 06/08/2018 Denies Ever completed [facility] [place] [facility] 07:11:00 PM [facility] Smoked [facility] EST Smoking 06/08/2018 Denies Ever completed [facility] [place] [facility] 07:07:00 PM [facility]oked [facility] EST Smoking 06/08/2018 Denies Ever completed [facility] [place] [facility] 07:00:00 AM [facility]oked [facility] EST Smoking 06/08/2018 Denies Ever completed [facility] [place] [facility] 06:19:00 AM [facility]oked [facility] EST Smoking 06/07/2018 Denies Ever completed [facility] [place] [facility] 08:32:00 PM [facility]oked [facility] EST Smoking 06/07/2018 Denies Ever completed [facility] [place] [facility] 08:29:00 PM [facility]oked [facility] EST Smoking 06/07/2018 Denies Ever completed [facility] [place] [facility] 07:58:00 PM [facility] Smoked [facility] EST Smoking 06/07/2018 Denies Ever completed [facility] [place] [facility] 01:30:00 PM [facility]oked [facility] EST Smoking 06/07/2018 Denies Ever completed [facility] [place] [facility] 01:25:00 PM [facility] Smoked [facility] EST Smoking 06/06/2018 Denies Ever completed [facility] [place] [facility] 04:35:00 AM [facility] Smoked [facility] EST Smoking 06/05/2018 Denies Ever completed [facility] [place] [facility] 08:00:00 PM [facility]oked [facility] EST Smoking 06/05/2018 Denies Ever completed [facility] [place] [facility] 06:56:00 PM [facility]oked [facility] EST Smoking 05/27/2018 Denies Ever completed [facility] [place] [facility] 08:22:00 PM [facility] Smoked [facility] EST Smoking 05/27/2018 Denies Ever completed [facility] [place] [facility] 07:30:00 PM [facility]oked [facility] EST Smoking 05/27/2018 Denies Ever completed [facility] [place] [facility] 07:15:00 PM Sm[facility] Smoked [facility] EST Smoking 05/25/2018 Denies Ever completed [facility] [place] [facility] 10:00:00 PM [facility] Smoked [facility] EST Smoking 05/25/2018 Denies Ever completed [facility] [place] [facility] 05:07:00 PM Sm[facility] Smoked [facility] EST Smoking 05/25/2018 Denies Ever completed [facility] [place] [facility] 04:39:00 PM Sm[facility] Smoked [facility] EST Smoking 05/25/2018 Denies Ever completed [facility] [place] [facility] 06:36:00 AM Sm[facility] Smoked [facility] EST Smoking 05/24/2018 Denies Ever completed [facility] [place] [facility] 07:17:00 PM Smoked Smoked [facility] EST Smoking 05/24/2018 Denies Ever completed [facility] [place] [facility] 06:59:00 PM Smoked Smoked [facility] EST Smoking 05/23/2018 Denies Ever completed [facility] [place] [facility] 09:52:00 PM Smoked Smoked [facility] EST Smoking 05/23/2018 Denies Ever completed [facility] [place] [facility] 07:19:00 PM Smoked Smoked [facility] EST Smoking 05/23/2018 Denies Ever completed [facility] [place] [facility] 07:19:00 PM Smoked Smoked [facility] EST Smoking 05/22/2018 Denies Ever completed [facility] [place] [facility] 06:18:00 PM Sm[facility] Smoked [facility] EST Smoking 05/22/2018 Denies Ever completed [facility] [place] [facility] 05:38:00 PM Sm[facility] Smoked [facility] EST Smoking 05/19/2018 Denies Ever completed [facility] [place] [facility] 02:48:00 PM Sm[facility] Smoked [facility] EST Smoking 05/19/2018 Denies Ever completed [facility] [place] [facility] 02:47:00 PM Sm[facility] Smoked [facility] EST Smoking 05/18/2018 Denies Ever completed [facility] [place] [facility] 03:28:00 PM Sm[facility] Smoked [facility] EST Smoking 05/18/2018 Denies Ever completed [facility] [place] [facility] 03:14:00 PM Smoked Smoked [facility] EST Smoking 05/18/2018 Denies Ever completed [facility] [place] [facility] 03:09:00 PM Smoked Smoked [facility] EST Smoking 05/16/2018 Denies Ever completed [facility] [place] [facility] 06:00:00 PM Smoked Smoked [facility] EST Smoking 05/16/2018 Denies Ever completed [facility] [place] [facility] 05:00:00 PM Sm[facility] Smoked [facility] EST Smoking 05/16/2018 Denies Ever completed [facility] [place] [facility] 01:15:00 AM Smoked Smoked [facility] EST Smoking 05/16/2018 Denies Ever completed [facility] [place] [facility] 12:40:00 AM Smoked Smoked [facility] EST Smoking 05/14/2018 Denies Ever completed [facility] [place] [facility] 09:17:00 PM Smoked Smoked [facility] EST Smoking 05/14/2018 Denies Ever completed [facility] [place] [facility] 07:30:00 PM Smoked Smoked [facility] EST Smoking 05/14/2018 Denies Ever completed [facility] [place] [facility] 07:26:00 PM Smoked Smoked [facility] EST Smoking 05/13/2018 Denies Ever completed [facility] 11:28:00 PM Smoked Smoked [facility] EST Smoking 05/13/2018 Denies Ever completed [facility] 10:30:00 PM Smoked Smoked [facility] EST Smoking 05/13/2018 Denies Ever completed [facility] 10:30:00 PM Smoked Smoked [facility] EST Smoking 05/12/2018 Denies Ever completed [facility] 01:48:00 PM Smoked Smoked [facility] EST Smoking 05/12/2018 Denies Ever completed [facility] 01:25:00 PM Smoked Smoked [facility] EST Smoking 05/06/2018 [id number] completed [facility] 06:10:00 AM Medical Cent[facility] EST Smoking 05/05/2018 [id number] completed [facility] 04:04:00 PM [facility] EST Smoking 05/05/2018 [id number] completed [facility] 02:55:00 PM [facility] EST Smoking 05/05/2018 [id number] completed [facility] 02:52:00 PM [facility] EST Smoking 05/02/2018 [id number] completed [facility] 09:00:00 PM Medical Cent[facility] EST Smoking 05/02/2018 [id number] completed [facility] 05:51:00 PM [facility] EST Smoking 05/02/2018 [id number] completed [facility] 05:30:00 PM [facility] EST Smoking 05/02/2018 [id number] completed [facility] 05:13:00 PM [facility] EST Smoking 04/30/2018 [id number] completed [facility] 02:40:00 PM [facility] EST Smoking 04/30/2018 [id number] completed [facility] 02:34:00 PM [facility] EST Smoking 04/27/2018 [id number] completed [facility] 04:33:00 PM [facility] EST Smoking 04/27/2018 [id number] completed [facility] 10:11:00 AM [facility] EST Smoking 04/27/2018 [id number] completed [facility] 12:00:00 AM [facility] Cent[facility] EST Smoking 04/26/2018 [id number] completed [facility] 06:13:00 PM Medical Cent[facility] EST Smoking 04/26/2018 [id number] completed [facility] 05:07:00 PM Medical [facility] r EST Smoking Unknown if ever completed Unknown if ever Ronald Quiros smoked smoked Medical Center Smoking Never smoked completed Never smoked [facility] tobacco tobacco (finding) [facility] Beto r Home/Environm UNK completed Zafar Chapa [facility] Patient is an alcoholic and is concerned about his useage. Substance Abuse UNK completed [facility] Patient denies substance abuse issues. Alcohol UNK completed [facility] Patient admits to being an alcholic and drinks a bottle of vodka a day. Patient wants to go to treatment. 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 Vital Signs ID Date Data Source UNK Name Value Range Interpretation Description Data Code Source(s) Body temperature 36.978048 Kaylie 36.840684 Kaylie [facility] Respiratory rate 18 /min 18 /min [facility] Oxygen 98 % 98 % [facility] saturation in Medical Arterial blood Center by Pulse oximetry Heart rate 77 /min 77 /min [facility] Diastolic blood 75 mm[Hg] 75 mm[Hg] [facility] Systolic blood 136 mm[Hg] 136 mm[Hg] [facility] Body temperature 36.283769 Kaylie 36.172618 Kaylie [facility] Respiratory rate 18 /min 18 /min [facility] Oxygen 98 % 98 % [facility] saturation in Medical Arterial blood Center by Pulse oximetry Heart rate 84 /min 84 /min [facility] Diastolic blood 79 mm[Hg] 79 mm[Hg] [facility] Center Systolic blood 142 mm[Hg] 142 mm[Hg] [facility] Body temperature 36.860884 Kaylie 36.407718 Kaylie [facility] Respiratory rate 19 /min 19 /min [facility] Oxygen 99 % 99 % [place] saturation in Medical Arterial blood Center by Pulse oximetry Heart rate 89 /min 89 /min [facility] Diastolic blood 87 mm[Hg] 87 mm[Hg] [facility] Systolic blood 155 mm[Hg] 155 mm[Hg] [facility] Body temperature 36.870279 Kaylie 36.728173 Kaylie [facility] Respiratory rate 18 /min 18 /min [facility] Oxygen 99 % 99 % [facility] saturation in Medical Arterial blood Center by Pulse oximetry Heart rate 100 /min 100 /min [facility] Diastolic blood 98 mm[Hg] 98 mm[Hg] [facility] pressure Medical Center Systolic blood 145 mm[Hg] 145 mm[Hg] [facility] Body temperature 37.747739 Kaylie 37.082248 Kaylie [facility] Respiratory rate 20 /min 20 /min [facility] Oxygen 95 % 95 % [facility] saturation in Medical Arterial blood Center by Pulse oximetry Heart rate 88 /min 88 /min [facility] Diastolic blood 77 mm[Hg] 77 mm[Hg] [facility] Systolic blood 135 mm[Hg] 135 mm[Hg] [facility] Body weight 79.496624 kg 79.687156 kg [facility] Body temperature 36.940012 Kaylie 36.690963 Kaylie [facility] Respiratory rate 18 /min 18 /min [facility] Oxygen 99 % 99 % [facility] saturation in Medical Arterial blood Center by Pulse oximetry Heart rate 78 /min 78 /min [facility] Body height 172.005338 cm 172.470882 cm [facility] Diastolic blood 70 mm[Hg] 70 mm[Hg] [facility] pressure Medical Center Systolic blood 130 mm[Hg] 130 mm[Hg] [facility] Body mass index 26.6 kg/m2 26.6 kg/m2 [facility] (BMI) [Ratio] Medical Center Body temperature 37.072814 Kaylie 37.683153 Kaylie [facility] Respiratory rate 18 /min 18 /min [facility] Oxygen 98 % 98 % [facility] saturation in Medical Arterial blood Center by Pulse oximetry Heart rate 103 /min 103 /min [facility] Diastolic blood 88 mm[Hg] 88 mm[Hg] [facility] Systolic blood 142 mm[Hg] 142 mm[Hg] [facility] Body temperature 36.850016 Kaylie 36.205152 Kaylie [facility] Respiratory rate 18 /min 18 /min [facility] Oxygen 97 % 97 % [facility] saturation in Medical Arterial blood Center by Pulse oximetry Heart rate 77 /min 77 /min [facility] Diastolic blood 66 mm[Hg] 66 mm[Hg] [facility] pressure Medical Center Systolic blood 140 mm[Hg] 140 mm[Hg] [facility] Body temperature 36.884856 Kaylie 36.999138 Kaylie [facility] Respiratory rate 18 /min 18 /min [facility] Oxygen 96 % 96 % [facility] saturation in Medical Arterial blood Center by Pulse oximetry Heart rate 88 /min 88 /min [facility] Diastolic blood 75 mm[Hg] 75 mm[Hg] [facility] Systolic blood 119 mm[Hg] 119 mm[Hg] [facility] [place] Body temperature 36.201415 Kaylie 36.240059 Kaylie [facility] Respiratory rate 19 /min 19 /min [facility] Oxygen 97 % 97 % [facility] saturation in Medical Arterial blood Center by Pulse oximetry Heart rate 101 /min 101 /min [facility] Diastolic blood 67 mm[Hg] 67 mm[Hg] [facility] Systolic blood 108 mm[Hg] 108 mm[Hg] [facility] Body temperature 36.378786 Kaylie 36.252165 Kaylie [facility] Respiratory rate 17 /min 17 /min [facility] Oxygen 94 % 94 % [facility] saturation in Medical Arterial blood Center by Pulse oximetry Heart rate 87 /min 87 /min [facility] Diastolic blood 81 mm[Hg] 81 mm[Hg] [facility] Systolic blood 120 mm[Hg] 120 mm[Hg] [facility] Body temperature 36.561463 Kaylie 36.552593 Kaylie [facility] Respiratory rate 17 /min 17 /min [facility] Oxygen 97 % 97 % [facility] saturation in Medical Arterial blood Center by Pulse oximetry Heart rate 70 /min 70 /min [facility] Diastolic blood 66 mm[Hg] 66 mm[Hg] [facility] pressure Medical Center Systolic blood 139 mm[Hg] 139 mm[Hg] [facility] pressure Medical Center Body temperature 36.716402 Kaylie 36.548008 Kaylie [facility] Respiratory rate 17 /min 17 /min [facility] Oxygen 95 % 95 % [facility] saturation in Medical Arterial blood Center by Pulse oximetry Heart rate 69 /min 69 /min [facility] Diastolic blood 76 mm[Hg] 76 mm[Hg] [facility] pressure Medical Center Systolic blood 122 mm[Hg] 122 mm[Hg] [facility] pressure Medical Center Body temperature 36.357728 Kaylie 36.170402 Kaylie [facility] Respiratory rate 17 /min 17 /min [facility] Center Oxygen 98 % 98 % [place] saturation in Medical Arterial blood Center by Pulse oximetry Heart rate 73 /min 73 /min [facility] Diastolic blood 69 mm[Hg] 69 mm[Hg] [facility] pressure Medical Center Systolic blood 133 mm[Hg] 133 mm[Hg] [facility] pressure Medical Center Diastolic blood 84 mmHg 84 mmHg [facility] Systolic blood 150 mmHg 150 mmHg [facility] Respiratory rate 18 bpm 18 bpm [facility] Heart rate 86 bpm 86 bpm [facility] Body temperature 97.8 97.8 Fahrenheit Rafael nt [facility] Diastolic blood 79 mmHg 79 mmHg [facility] Systolic blood 135 mmHg 135 mmHg [facility] Respiratory rate 18 bpm 18 bpm [facility] Heart rate 92 bpm 92 bpm [facility] Body temperature 97.5 97.5 Fahrenheit Rafael nt [facility] Diastolic blood 77 mmHg 77 mmHg [facility] Systolic blood 124 mmHg 124 mmHg [facility] Respiratory rate 18 bpm 18 bpm [facility] Heart rate 90 bpm 90 bpm [facility] Body temperature 98.0 98.0 Fahrenheit [facility] nt [facility] Diastolic blood 89 mmHg 89 mmHg [facility] Systolic blood 149 mmHg 149 mmHg [facility] Respiratory rate 18 bpm 18 bpm [facility] Heart rate 105 bpm 105 bpm [facility] Body temperature 98.2 98.2 Fahrenheit [facility] nt [facility] Body temperature 97.3 97.3 Fahrenheit [facility] nt [facility] Body weight 233 lbs 233 lbs [facility] Diastolic blood 87 mmHg 87 mmHg [facility] Systolic blood 140 mmHg 140 mmHg [facility] Respiratory rate 18 bpm 18 bpm [facility] Heart rate 103 bpm 103 bpm [facility] Body temperature 98.1 98.1 [facility] Body temperature 97.4 97.4 [facility] Body temperature 36.582131 Kaylie 36.619513 Kaylie [facility] Respiratory rate 17 /min 17 /min [facility] Oxygen 95 % 95 % [facility] saturation in Medical Arterial blood Center by Pulse oximetry Heart rate 79 /min 79 /min [facility] Diastolic blood 71 mm[Hg] 71 mm[Hg] [facility] [place] Systolic blood 122 mm[Hg] 122 mm[Hg] [facility] [place] Body temperature 36.600288 Kaylie 36.807757 Kaylie [facility] Respiratory rate 17 /min 17 /min [facility] Oxygen 98 % 98 % [facility] saturation in Medical Arterial blood Center by Pulse oximetry Heart rate 79 /min 79 /min [facility] Diastolic blood 69 mm[Hg] 69 mm[Hg] [facility] pressure Medical Center Systolic blood 133 mm[Hg] 133 mm[Hg] [facility] [place] Body temperature 37.572641 Kaylie 37.564263 Kaylie [facility] Respiratory rate 16 /min 16 /min [facility] Oxygen 97 % 97 % [facility] saturation in Medical Arterial blood Center by Pulse oximetry Heart rate 96 /min 96 /min [facility] Diastolic blood 91 mm[Hg] 91 mm[Hg] [facility] pressure [facility] [place] Systolic blood 154 mm[Hg] 154 mm[Hg] [facility] Body temperature 37.285080 Kaylie 37.160707 Kaylie [facility] Respiratory rate 18 /min 18 /min [facility] Heart rate 102 /min 102 /min [facility] Diastolic blood 107 mm[Hg] 107 mm[Hg] [facility] pressure Medical Center Systolic blood 162 mm[Hg] 162 mm[Hg] [facility] Body temperature 36.737180 Kaylie 36.662830 Kaylie [facility] Respiratory rate 18 /min 18 /min [facility] Oxygen 97 % 97 % [facility] saturation in Medical Arterial blood Center by Pulse oximetry Heart rate 101 /min 101 /min [facility] Diastolic blood 95 mm[Hg] 95 mm[Hg] [facility] pressure Medical Center Systolic blood 159 mm[Hg] 159 mm[Hg] [facility] [place] Body temperature 36.184270 Kaylie 36.142682 Kaylie [facility] Respiratory rate 18 /min 18 /min [facility] Oxygen 96 % 96 % [facility] saturation in Medical Arterial blood Center by Pulse oximetry Heart rate 93 /min 93 /min [facility] Diastolic blood 61 mm[Hg] 61 mm[Hg] [facility] Systolic blood 111 mm[Hg] 111 mm[Hg] [facility] [place] Body temperature 36.212307 Kaylie 36.849982 Kaylie [facility] Respiratory rate 16 /min 16 /min [facility] Oxygen 98 % 98 % [facility] saturation in Medical Arterial blood Center by Pulse oximetry Heart rate 78 /min 78 /min [facility] Diastolic blood 73 mm[Hg] 73 mm[Hg] [facility] pressure Medical Center Systolic blood 124 mm[Hg] 124 mm[Hg] [facility] Body temperature 36.203882 Kaylie 36.651313 Kaylie [facility] Respiratory rate 16 /min 16 /min [facility] Oxygen 96 % 96 % [facility] saturation in Medical Arterial blood Center by Pulse oximetry Heart rate 94 /min 94 /min [facility] Diastolic blood 71 mm[Hg] 71 mm[Hg] [facility] pressure Medical Center Systolic blood 131 mm[Hg] 131 mm[Hg] [facility] Body temperature 36.835446 Kaylie 36.308344 Kaylie [facility] Respiratory rate 15 /min 15 /min [facility] Oxygen 98 % 98 % [facility] saturation in Medical Arterial blood Center by Pulse oximetry Heart rate 100 /min 100 /min [facility] Diastolic blood 73 mm[Hg] 73 mm[Hg] [facility] pressure Medical Center Systolic blood 129 mm[Hg] 129 mm[Hg] [facility] Body weight 77.960700 kg 77.937290 kg [facility] Body temperature 36.132731 Kaylie 36.774394 Kaylie [facility] Respiratory rate 18 /min 18 /min [facility] Oxygen 96 % 96 % [facility] saturation in [facility] by Pulse oximetry Heart rate 99 /min 99 /min [facility] Body height 167.022316 cm 167.746624 cm [facility] Diastolic blood 74 mm[Hg] 74 mm[Hg] [facility] Systolic blood 128 mm[Hg] 128 mm[Hg] [facility] Body mass index 27.4 kg/m2 27.4 kg/m2 [facility] (BMI) [Ratio] Medical Center Body temperature 36.290007 Kaylie 36.282258 Kaylie [facility] Respiratory rate 17 /min 17 /min [facility] Oxygen 99 % 99 % [place] saturation in [facility] blood Center by Pulse oximetry Heart rate 81 /min 81 /min [facility] Diastolic blood 69 mm[Hg] 69 mm[Hg] [facility] Systolic blood 118 mm[Hg] 118 mm[Hg] [facility] Body weight 113.144596 kg 113.113630 kg [facility] Body temperature 37.375306 Kaylie 37.838961 Kaylie [facility] Respiratory rate 19 /min 19 /min [facility] Oxygen 94 % 94 % [place] saturation in [facility] blood Center by Pulse oximetry Heart rate 102 /min 102 /min [facility] Body height 172.177407 cm 172.995272 cm [facility] Diastolic blood 78 mm[Hg] 78 mm[Hg] [facility] Systolic blood 138 mm[Hg] 138 mm[Hg] [facility] Body mass index 38.0 kg/m2 38.0 kg/m2 [facility] (BMI) [Ratio] [facility] Body temperature 36.920445 Kaylie 36.336407 Kaylie [facility] Respiratory rate 18 /min 18 /min [facility] Oxygen 98 % 98 % [place] saturation in [facility] Ar[facility] blood Center by Pulse oximetry Heart rate 104 /min 104 /min [facility] Diastolic blood 50 mm[Hg] 50 mm[Hg] [facility] pressure Medical Center Systolic blood 91 mm[Hg] 91 mm[Hg] [facility] Body temperature 36.227507 Kaylie 36.756992 Kaylie [facility] Respiratory rate 18 /min 18 /min [facility] Oxygen 91 % 91 % [place] saturation in [facility] Ar[facility] blood Center by Pulse oximetry Heart rate 97 /min 97 /min [facility] Diastolic blood 75 mm[Hg] 75 mm[Hg] [facility] pressure Medical Center Systolic blood 126 mm[Hg] 126 mm[Hg] [facility] Body temperature 36.770990 Kaylie 36.734894 Kaylie [facility] Respiratory rate 18 /min 18 /min [facility] Oxygen 100 % 100 % [place] saturation in [facility] Ar[facility] blood Center by Pulse oximetry Heart rate 95 /min 95 /min [facility] Diastolic blood 57 mm[Hg] 57 mm[Hg] [facility] Systolic blood 106 mm[Hg] 106 mm[Hg] [facility] Body weight 83.726596 kg 83.111682 kg [facility] Body temperature 36.641072 Kaylie 36.209733 Akylie [facility] Respiratory rate 19 /min 19 /min [facility] Oxygen 97 % 97 % [place] saturation in [facility] Ar[facility] blood Center by Pulse oximetry Heart rate 95 /min 95 /min [facility] Body height 175.833448 cm 175.681113 cm [facility] Diastolic blood 58 mm[Hg] 58 mm[Hg] [facility] Systolic blood 107 mm[Hg] 107 mm[Hg] [facility] Body mass index 27.3 kg/m2 27.3 kg/m2 [facility] (BMI) [Ratio] Medical Center Body temperature 36.716854 Kaylie 36.788184 Kaylie [facility] Respiratory rate 16 /min 16 /min [facility] Oxygen 98 % 98 % [place] saturation in [facility] Ar[facility] blood Center by Pulse oximetry Heart rate 84 /min 84 /min [facility] Diastolic blood 74 mm[Hg] 74 mm[Hg] [facility] Systolic blood 141 mm[Hg] 141 mm[Hg] [facility] Body temperature 37.678296 Kaylie 37.003706 Kaylie [facility] Respiratory rate 18 /min 18 /min [facility] Oxygen 96 % 96 % [place] saturation in [facility] Ar[facility] blood Center by Pulse oximetry Heart rate 90 /min 90 /min [facility] Diastolic blood 60 mm[Hg] 60 mm[Hg] [facility] Systolic blood 103 mm[Hg] 103 mm[Hg] [facility] Body temperature 37.230400 Kaylie 37.845884 Kaylie [facility] Respiratory rate 17 /min 17 /min [facility] Oxygen 99 % 99 % [place] saturation in Medical Ar[facility] blood Center by Pulse oximetry Heart rate 88 /min 88 /min [facility] Diastolic blood 86 mm[Hg] 86 mm[Hg] [facility] Systolic blood 138 mm[Hg] 138 mm[Hg] [facility] Body temperature 36.560150 Kaylie 36.647812 Kaylie [facility] Respiratory rate 16 /min 16 /min [facility] Oxygen 98 % 98 % [place] saturation in Medical Ar[facility] blood Center by Pulse oximetry Heart rate 78 /min 78 /min [facility] Diastolic blood 91 mm[Hg] 91 mm[Hg] [facility] Systolic blood 145 mm[Hg] 145 mm[Hg] [facility] Body temperature 36.377950 Kaylie 36.649166 Kaylie [facility] Respiratory rate 16 /min 16 /min [facility] Oxygen 98 % 98 % [place] saturation in [facility] Ar[facility] blood Center by Pulse oximetry Heart rate 75 /min 75 /min [facility] Diastolic blood 84 mm[Hg] 84 mm[Hg] [facility] Systolic blood 151 mm[Hg] 151 mm[Hg] [facility] Body temperature 36.735506 Kaylie 36.932420 Kaylie [facility] Respiratory rate 16 /min 16 /min [facility] Oxygen 98 % 98 % [place] saturation in [facility] Ar[facility] blood Center by Pulse oximetry Heart rate 74 /min 74 /min [facility] Diastolic blood 87 mm[Hg] 87 mm[Hg] [facility] pressure Medical Center Systolic blood 148 mm[Hg] 148 mm[Hg] [facility] Body temperature 36.868531 Kaylie 36.437669 Kaylie [facility] Respiratory rate 16 /min 16 /min [facility] Oxygen 96 % 96 % [place] saturation in [facility] Ar[facility] blood Center by Pulse oximetry Heart rate 79 /min 79 /min [facility] Diastolic blood 88 mm[Hg] 88 mm[Hg] [facility] [place] Systolic blood 151 mm[Hg] 151 mm[Hg] [facility] [place] Body temperature 37.457565 Kaylie 37.507160 Kaylie [facility] Respiratory rate 16 /min 16 /min [facility] Oxygen 98 % 98 % [place] saturation in [facility] Ar[facility] blood Center by Pulse oximetry Heart rate 86 /min 86 /min [facility] Diastolic blood 94 mm[Hg] 94 mm[Hg] [facility] [place] Systolic blood 145 mm[Hg] 145 mm[Hg] [facility] Body temperature 36.711161 Kaylie 36.257892 Kaylie [facility] Respiratory rate 19 /min 19 /min [facility] Oxygen 97 % 97 % [place] saturation in [facility] Ar[facility] blood Center by Pulse oximetry Heart rate 92 /min 92 /min [facility] Diastolic blood 88 mm[Hg] 88 mm[Hg] [facility] [place] Systolic blood 148 mm[Hg] 148 mm[Hg] [facility] Body temperature 36.073313 Kaylie 36.830993 Kaylie [facility] Respiratory rate 17 /min 17 /min [facility] Oxygen 97 % 97 % [place] saturation in Medical Ar[facility] blood Center by Pulse oximetry Heart rate 71 /min 71 /min [facility] Diastolic blood 87 mm[Hg] 87 mm[Hg] [facility] Systolic blood 139 mm[Hg] 139 mm[Hg] [facility] [place] Body temperature 36.781081 Kaylie 36.298253 Kaylie [facility] Respiratory rate 18 /min 18 /min [facility] Oxygen 97 % 97 % [place] saturation in Medical Ar[facility] blood Center by Pulse oximetry Heart rate 84 /min 84 /min [facility] Diastolic blood 77 mm[Hg] 77 mm[Hg] [facility] pressure Medical Center Systolic blood 132 mm[Hg] 132 mm[Hg] [facility] pressure Medical Center Diastolic blood 68 mm[Hg] 68 mm[Hg] [facility] pressure Medical Center Systolic blood 119 mm[Hg] 119 mm[Hg] [facility] Body temperature 36.010285 Kaylie 36.989107 Kaylie [facility] Respiratory rate 17 /min 17 /min [facility] Oxygen 98 % 98 % [place] saturation in Medical Ar[facility] blood Center by Pulse oximetry Heart rate 88 /min 88 /min [facility] Body temperature 36.234000 Kaylie 36.158734 Kaylie [facility] Respiratory rate 17 /min 17 /min [facility] Oxygen 97 % 97 % [place] saturation in [facility] Ar[facility] blood Center by Pulse oximetry Heart rate 81 /min 81 /min [facility] Diastolic blood 72 mm[Hg] 72 mm[Hg] [facility] Systolic blood 131 mm[Hg] 131 mm[Hg] [facility] Body weight 90.990029 kg 90.045742 kg [facility] Body temperature 36.446851 Kaylie 36.703228 Kaylie [facility] Respiratory rate 16 /min 16 /min [facility] Oxygen 9 % 9 % [place] saturation in [facility] Ar[facility] blood Center by Pulse oximetry Heart rate 80 /min 80 /min [facility] Body height 177.164641 cm 177.565636 cm [facility] Diastolic blood 95 mm[Hg] 95 mm[Hg] [facility] pressure Medical Center Systolic blood 152 mm[Hg] 152 mm[Hg] [facility] Body mass index 28.6 kg/m2 28.6 kg/m2 [facility] (BMI) [Ratio] Medical Center Body temperature 36.660483 Kaylie 36.181244 Kaylie [facility] Respiratory rate 18 /min 18 /min [facility] Oxygen 100 % 100 % [place] saturation in [facility] Ar[facility] blood Center by Pulse oximetry Heart rate 81 /min 81 /min [facility] Diastolic blood 70 mm[Hg] 70 mm[Hg] [facility] Systolic blood 119 mm[Hg] 119 mm[Hg] [facility] Body temperature 36.979292 Kaylie 36.818655 Kaylie [facility] Respiratory rate 18 /min 18 /min [facility] Oxygen 97 % 97 % [place] saturation in [facility] Ar[facility] blood Center by Pulse oximetry Heart rate 86 /min 86 /min [facility] Diastolic blood 76 mm[Hg] 76 mm[Hg] [facility] Systolic blood 119 mm[Hg] 119 mm[Hg] [facility] Body temperature 36.292684 Kaylie 36.593972 Kaylie [facility] Respiratory rate 18 /min 18 /min [facility] Oxygen 97 % 97 % [place] saturation in Medical Arter[facility] blood Center by Pulse oximetry Heart rate 94 /min 94 /min [facility] Diastolic blood 87 mm[Hg] 87 mm[Hg] [facility] [place] Systolic blood 140 mm[Hg] 140 mm[Hg] [facility] Body temperature 36.144007 Kaylie 36.142071 Kaylie [facility] Respiratory rate 19 /min 19 /min [facility] Oxygen 100 % 100 % [place] saturation in Medical Arterial blood Center by Pulse oximetry Heart rate 83 /min 83 /min [facility] Diastolic blood 71 mm[Hg] 71 mm[Hg] [facility] [place] Systolic blood 126 mm[Hg] 126 mm[Hg] [facility] Body temperature 36.113563 Kaylie 36.506305 Kaylie [facility] Respiratory rate 18 /min 18 /min [facility] Oxygen 99 % 99 % [place] saturation in Medical Ar[facility] blood Center by Pulse oximetry Heart rate 79 /min 79 /min [facility] Diastolic blood 77 mm[Hg] 77 mm[Hg] [facility] [place] Systolic blood 126 mm[Hg] 126 mm[Hg] [facility] Body weight 125.874454 kg 125.115926 kg [facility] Body temperature 36.606656 Kaylie 36.935069 Kaylie [facility] Respiratory rate 18 /min 18 /min [facility] Oxygen 98 % 98 % [place] saturation in [facility] Ar[facility] blood Center by Pulse oximetry Heart rate 98 /min 98 /min [facility] Body height 177.871741 cm 177.743558 cm [facility] Diastolic blood 78 mm[Hg] 78 mm[Hg] [facility] pressure Medical Center Systolic blood 110 mm[Hg] 110 mm[Hg] [facility] [place] Body mass index 39.5 kg/m2 39.5 kg/m2 [facility] (BMI) [Ratio] Medical Center Body temperature 36.513696 Kaylie 36.118657 Kaylie [facility] Respiratory rate 17 /min 17 /min [facility] Oxygen 96 % 96 % [facility] saturation in Medical Arterial blood Center by Pulse oximetry Heart rate 88 /min 88 /min [facility] Diastolic blood 75 mm[Hg] 75 mm[Hg] [facility] Systolic blood 104 mm[Hg] 104 mm[Hg] [facility] Body weight 110.863079 kg 110.241991 kg [facility] Body temperature 36.369855 Kaylie 36.747869 Kaylie [facility] Respiratory rate 18 /min 18 /min [facility] Oxygen 98 % 98 % [facility] saturation in Medical Arterial blood Center by Pulse oximetry Heart rate 78 /min 78 /min [facility] Body height 187.122972 cm 187.733941 cm [facility] Diastolic blood 78 mm[Hg] 78 mm[Hg] [facility] pressure Medical Center Systolic blood 148 mm[Hg] 148 mm[Hg] [facility] [place] Body mass index 31.1 kg/m2 31.1 kg/m2 [facility] (BMI) [Ratio] Medical Center Body temperature 36.916911 Kaylie 36.543436 Kaylie [facility] Respiratory rate 17 /min 17 /min [facility] Oxygen 98 % 98 % [facility] saturation in Medical Arterial blood Center by Pulse oximetry Heart rate 75 /min 75 /min [facility] Diastolic blood 68 mm[Hg] 68 mm[Hg] [facility] Systolic blood 129 mm[Hg] 129 mm[Hg] [facility] Oxygen 98 % 98 % [place] saturation in Medical Ar[facility] blood Center by Pulse oximetry Heart rate 75 /min 75 /min [facility] Diastolic blood 68 mm[Hg] 68 mm[Hg] [facility] pressure Medical Center Systolic blood 133 mm[Hg] 133 mm[Hg] [facility] Body temperature 36.745615 Kaylie 36.364380 Kaylie [facility] Respiratory rate 17 /min 17 /min [facility] Body temperature 36.495865 Kaylie 36.000131 Kaylie [facility] Respiratory rate 17 /min 17 /min [facility] Oxygen 98 % 98 % [place] saturation in Medical Ar[facility] blood Center by Pulse oximetry Heart rate 82 /min 82 /min [facility] Diastolic blood 87 mm[Hg] 87 mm[Hg] [facility] [place] Systolic blood 142 mm[Hg] 142 mm[Hg] [facility] Body temperature 36.687454 Kaylie 36.471843 Kaylie [facility] Oxygen 97 % 97 % [place] saturation in Medical Ar[facility] blood Center by Pulse oximetry Heart rate 87 /min 87 /min [facility] Diastolic blood 81 mm[Hg] 81 mm[Hg] [facility] Systolic blood 150 mm[Hg] 150 mm[Hg] [facility] Body temperature 37.155789 Kaylie 37.278997 Kaylie [facility] Respiratory rate 19 /min 19 /min [facility] Oxygen 96 % 96 % [place] saturation in Medical Arterial blood Center by Pulse oximetry Heart rate 89 /min 89 /min [facility] Diastolic blood 91 mm[Hg] 91 mm[Hg] [facility] Systolic blood 158 mm[Hg] 158 mm[Hg] [facility] Body weight 104.412391 kg 104.201690 kg [facility] [place] Body temperature 37.791650 Kaylie 37.789712 Kyalie [facility] Respiratory rate 17 /min 17 /min [facility] Oxygen 96 % 96 % [place] saturation in Medical Ar[facility] blood Center by Pulse oximetry Heart rate 92 /min 92 /min [facility] Body height 177.750983 cm 177.136525 cm [facility] Diastolic blood 101 mm[Hg] 101 mm[Hg] [facility] pressure [facility] Center Systolic blood 152 mm[Hg] 152 mm[Hg] [facility] Body mass index 33.0 kg/m2 33.0 kg/m2 [facility] (BMI) [Ratio] Medical Center Body weight 110.126760 kg 110.129337 kg [facility] Body temperature 36.221577 Kaylie 36.887126 Kaylie [facility] Respiratory rate 18 /min 18 /min [facility] Oxygen 98 % 98 % [facility] saturation in Medical Arterial blood Center by Pulse oximetry Heart rate 78 /min 78 /min [facility] Body height 185.654847 cm 185.881405 cm [facility] Diastolic blood 78 mm[Hg] 78 mm[Hg] [facility] Systolic blood 142 mm[Hg] 142 mm[Hg] [facility] Body mass index 31.9 kg/m2 31.9 kg/m2 [facility] (BMI) [Ratio] Medical Center Body temperature 36.181635 Kaylie 36.943159 Kaylie [facility] Respiratory rate 18 /min 18 /min [facility] Oxygen 95 % 95 % [place] saturation in Medical Arter[facility] blood Center by Pulse oximetry Heart rate 91 /min 91 /min [facility] Diastolic blood 74 mm[Hg] 74 mm[Hg] [facility] Systolic blood 144 mm[Hg] 144 mm[Hg] [facility] Body temperature 37.388819 Kaylie 37.892966 Kaylie [facility] Respiratory rate 20 /min 20 /min [facility] Oxygen 96 % 96 % [place] saturation in Medical Arter[facility] blood Center by Pulse oximetry Heart rate 89 /min 89 /min [facility] Diastolic blood 79 mm[Hg] 79 mm[Hg] [facility] Systolic blood 140 mm[Hg] 140 mm[Hg] [facility] Body weight 90.348065 kg 90.676613 kg [facility] Measured [facility] Body temperature 36.318332 Kaylie 36.085015 Kaylie [facility] Respiratory rate 18 /min 18 /min [facility] Oxygen 99 % 99 % [place] saturation in Medical Arterial blood Center by Pulse oximetry Heart rate 97 /min 97 /min [facility] Body height 177.451860 cm 177.045175 cm [facility] Diastolic blood 86 mm[Hg] 86 mm[Hg] [facility] pressure Medical Center Systolic blood 157 mm[Hg] 157 mm[Hg] [facility] Body mass index 28.6 kg/m2 28.6 kg/m2 [facility] (BMI) [Ratio] Medical Center Body temperature 36.421512 Kaylie 36.442986 Kaylie [facility] Respiratory rate 19 /min 19 /min [facility] Oxygen 97 % 97 % [place] saturation in Medical Ar[facility] blood Center by Pulse oximetry Heart rate 78 /min 78 /min [facility] Diastolic blood 78 mm[Hg] 78 mm[Hg] [facility] Systolic blood 132 mm[Hg] 132 mm[Hg] [facility] Body temperature 37.233413 Kaylie 37.322410 Kaylie [facility] Respiratory rate 18 /min 18 /min [facility] Oxygen 96 % 96 % [place] saturation in Medical Arter[facility] blood Center by Pulse oximetry Heart rate 92 /min 92 /min [facility] Diastolic blood 64 mm[Hg] 64 mm[Hg] [facility] pressure [facility] Center Systolic blood 117 mm[Hg] 117 mm[Hg] [facility] Body temperature 37.612970 Kaylie 37.276337 Kaylie [facility] Respiratory rate 19 /min 19 /min [facility] Oxygen 98 % 98 % [place] saturation in Medical Arterial blood Center by Pulse oximetry Heart rate 96 /min 96 /min [facility] Diastolic blood 98 mm[Hg] 98 mm[Hg] [facility] pressure Medical Center Systolic blood 148 mm[Hg] 148 mm[Hg] [facility] Body temperature 36.970609 Kaylie 36.803314 Kaylie [facility] Respiratory rate 18 /min 18 /min [facility] Oxygen 98 % 98 % [place] saturation in Medical Arterial blood Center by Pulse oximetry Heart rate 88 /min 88 /min [facility] Diastolic blood 78 mm[Hg] 78 mm[Hg] [facility] Systolic blood 134 mm[Hg] 134 mm[Hg] [facility] Body temperature 36.505301 Kaylie 36.819376 Kaylie [facility] Respiratory rate 18 /min 18 /min [facility] Oxygen 90 % 90 % [place] saturation in Medical Arterial blood Center by Pulse oximetry Heart rate 76 /min 76 /min [facility] Diastolic blood 76 mm[Hg] 76 mm[Hg] [facility] pressure [facility] Center Systolic blood 134 mm[Hg] 134 mm[Hg] [facility] Oxygen 95 % 95 % [place] saturation in Medical Arter[facility] blood Center by Pulse oximetry Heart rate 74 /min 74 /min [facility] Diastolic blood 81 mm[Hg] 81 mm[Hg] [facility] Systolic blood 127 mm[Hg] 127 mm[Hg] [facility] Body temperature 36.286038 Kaylie 36.470447 Kaylie [facility] Respiratory rate 16 /min 16 /min [facility] Body temperature 36.638146 Kaylie 36.255522 Kaylie [facility] Oxygen 95 % 95 % [place] saturation in Medical Ar[facility]ial blood Center by Pulse oximetry Heart rate 79 /min 79 /min [facility] Diastolic blood 74 mm[Hg] 74 mm[Hg] [facility] Systolic blood 131 mm[Hg] 131 mm[Hg] [facility] Body temperature 37.774728 Kaylie 37.847013 Kaylie [facility] Respiratory rate 16 /min 16 /min [facility] Oxygen 98 % 98 % [place] saturation in Medical Arterial blood Center by Pulse oximetry Heart rate 84 /min 84 /min [facility] Diastolic blood 74 mm[Hg] 74 mm[Hg] [facility] pressure Medical Center Systolic blood 131 mm[Hg] 131 mm[Hg] [facility] [facility] Body temperature 37.683410 Kaylie 37.044822 [facility] Respiratory rate 17 /min 17 /min [facility] Oxygen 99 % 99 % [facility] [place] saturation in Medical Arterial blood Center by Pulse oximetry Heart rate 81 /min 81 /min [facility] Diastolic blood 78 mm[Hg] 78 mm[Hg] [facility] Systolic blood 127 mm[Hg] 127 mm[Hg] [facility] Body weight 104.439301 kg 104.230364 kg [facility] [place] Body temperature 36.365493 Kaylie 36.907310 [facility] Respiratory rate 17 /min 17 /min [facility] Oxygen 98 % 98 % [facility] [place] saturation in Medical Arterial blood Center by Pulse oximetry Heart rate 101 /min 101 /min [facility] Body height 177.246854 cm 177.693255 cm [facility] Diastolic blood 94 mm[Hg] 94 mm[Hg] [facility] pressure Medical Center Systolic blood 163 mm[Hg] 163 mm[Hg] [facility] Body mass index 33.0 kg/m2 33.0 kg/m2 [facility] (BMI) [Ratio] Medical Center Body temperature 36.431351 Kaylie 36.222987 [facility] Respiratory rate 17 /min 17 /min [facility] Oxygen 98 % 98 % [place] saturation in Medical Arterial blood Center by Pulse oximetry Heart rate 72 /min 72 /min [facility] Diastolic blood 96 mm[Hg] 96 mm[Hg] [facility] Systolic blood 139 mm[Hg] 139 mm[Hg] [facility] Body temperature 36.199089 Kaylie 36.679808 [facility] Respiratory rate 18 /min 18 /min [facility] Oxygen 97 % 97 % [place] saturation in Medical Arterial blood Center by Pulse oximetry Heart rate 66 /min 66 /min [facility] Diastolic blood 52 mm[Hg] 52 mm[Hg] [facility] Systolic blood 100 mm[Hg] 100 mm[Hg] [facility] Body weight 77.538376 kg 77.282822 kg [facility] Body temperature 36.503169 Kaylie 36.658254 [facility] Respiratory rate 18 /min 18 /min [facility] Oxygen 97 % 97 % [facility] [place] saturation in Medical Arterial blood Center by Pulse oximetry Heart rate 82 /min 82 /min [facility] Body height 167.880331 cm 167.026993 cm [facility] Diastolic blood 80 mm[Hg] 80 mm[Hg] [facility] pressure Medical Center Systolic blood 130 mm[Hg] 130 mm[Hg] [facility] Body mass index 27.4 kg/m2 27.4 kg/m2 [facility] (BMI) [Ratio] Medical Center Body temperature 36.605828 Kaylie 36.254159 [facility] Respiratory rate 17 /min 17 /min [facility] Oxygen 99 % 99 % [facility] [place] saturation in Medical Arterial blood Center by Pulse oximetry Heart rate 88 /min 88 /min [facility] Diastolic blood 77 mm[Hg] 77 mm[Hg] [facility] Systolic blood 128 mm[Hg] 128 mm[Hg] [facility] Body temperature 37.459484 Kaylie 37.889169 [facility] Respiratory rate 18 /min 18 /min [facility] Oxygen 96 % 96 % [place] saturation in Medical Arterial blood Center by Pulse oximetry Heart rate 94 /min 94 /min [facility] Diastolic blood 80 mm[Hg] 80 mm[Hg] [facility] Systolic blood 122 mm[Hg] 122 mm[Hg] [facility] Body temperature 36.716376 Kaylie 36.042597 [facility] Respiratory rate 20 /min 20 /min [facility] Oxygen 94 % 94 % [place] saturation in Medical Arterial blood Center by Pulse oximetry Heart rate 93 /min 93 /min [facility] Diastolic blood 61 mm[Hg] 61 mm[Hg] [facility] Systolic blood 122 mm[Hg] 122 mm[Hg] [facility] Body temperature 36.074434 Kaylie 36.559906 [facility] Respiratory rate 17 /min 17 /min [facility] Oxygen 97 % 97 % [place] saturation in Medical Arterial blood Center by Pulse oximetry Heart rate 81 /min 81 /min [facility] Diastolic blood 82 mm[Hg] 82 mm[Hg] [facility] Systolic blood 142 mm[Hg] 142 mm[Hg] [facility] Body temperature 36.860737 Kaylie 36.087965 [facility] Respiratory rate 18 /min 18 /min [facility] Oxygen 98 % 98 % [facility] saturation in Medical Arterial blood Center by Pulse oximetry Heart rate 86 /min 86 /min [facility] Diastolic blood 78 mm[Hg] 78 mm[Hg] [facility] pressure Medical Center Systolic blood 122 mm[Hg] 122 mm[Hg] [facility] Body temperature 36.396092 Kaylie 36.414329 [facility] Respiratory rate 17 /min 17 /min [facility] Oxygen 96 % 96 % [facility] saturation in Medical Arterial blood Center by Pulse oximetry Heart rate 83 /min 83 /min [facility] Diastolic blood 71 mm[Hg] 71 mm[Hg] [facility] pressure Medical Center Systolic blood 125 mm[Hg] 125 mm[Hg] [facility] Body temperature 37.321828 Kaylie 37.931893 [facility] Respiratory rate 16 /min 16 /min [facility] Oxygen 94 % 94 % [facility] saturation in Medical Arterial blood Center by Pulse oximetry Heart rate 92 /min 92 /min [facility] Diastolic blood 72 mm[Hg] 72 mm[Hg] [facility] pressure Medical Center Systolic blood 142 mm[Hg] 142 mm[Hg] [facility] Body weight 90.318975 kg 90.966437 kg [facility] [place] Body temperature 37.733086 Kaylie 37.112359 [facility] Respiratory rate 18 /min 18 /min [facility] Oxygen 92 % 92 % [facility] saturation in Medical Arterial blood Center by Pulse oximetry Heart rate 96 /min 96 /min [facility] Body height 177.524648 cm 177.537596 cm [facility] Diastolic blood 70 mm[Hg] 70 mm[Hg] [facility] pressure Medical Center Systolic blood 122 mm[Hg] 122 mm[Hg] [facility] Body mass index 28.6 kg/m2 28.6 kg/m2 [facility] (BMI) [Ratio] Medical Center Body temperature 36.288621 Kaylie 36.721847 [facility] Respiratory rate 17 /min 17 /min [facility] Oxygen 98 % 98 % [place] saturation in Medical Arterial blood Center by Pulse oximetry Heart rate 75 /min 75 /min [facility] Diastolic blood 65 mm[Hg] 65 mm[Hg] [facility] pressure Medical Center Systolic blood 133 mm[Hg] 133 mm[Hg] [facility] Body temperature 36.762201 Kaylie 36.910204 [facility] Respiratory rate 18 /min 18 /min [facility] Oxygen 98 % 98 % [place] saturation in Medical Arterial blood Center by Pulse oximetry Heart rate 90 /min 90 /min [facility] Diastolic blood 72 mm[Hg] 72 mm[Hg] [facility] pressure Medical Center Systolic blood 127 mm[Hg] 127 mm[Hg] [facility] Body weight 75.772419 kg 75.909092 kg [facility] Body temperature 36.228725 Kaylie 36.824272 [facility] Respiratory rate 19 /min 19 /min [facility] Oxygen 98 % 98 % [place] saturation in Medical Arterial blood Center by Pulse oximetry Heart rate 88 /min 88 /min [facility] Body height 170.544118 cm 170.445799 cm [facility] Diastolic blood 82 mm[Hg] 82 mm[Hg] [facility] pressure Medical Center Systolic blood 140 mm[Hg] 140 mm[Hg] [facility] Body mass index 26.1 kg/m2 26.1 kg/m2 [facility] (BMI) [Ratio] Medical Center Body temperature 35.287873 Kaylie 35.081340 [facility] Respiratory rate 19 /min 19 /min [facility] Oxygen 96 % 96 % [place] saturation in Medical Arterial blood Center by Pulse oximetry Heart rate 89 /min 89 /min [facility] Diastolic blood 75 mm[Hg] 75 mm[Hg] [facility] pressure Medical Center Systolic blood 102 mm[Hg] 102 mm[Hg] [facility] Body temperature 36.601727 Kaylie 36.772594 [facility] Respiratory rate 18 /min 18 /min [facility] Oxygen 98 % 98 % [place] saturation in Medical Arterial blood Center by Pulse oximetry Heart rate 76 /min 76 /min [facility] Diastolic blood 76 mm[Hg] 76 mm[Hg] [facility] Systolic blood 112 mm[Hg] 112 mm[Hg] [facility] Body temperature 36.737395 Kaylie 36.706364 [facility] Respiratory rate 18 /min 18 /min [facility] Oxygen 98 % 98 % [place] saturation in Medical Arterial blood Center by Pulse oximetry Heart rate 76 /min 76 /min [facility] Diastolic blood 76 mm[Hg] 76 mm[Hg] [facility] [place] Systolic blood 112 mm[Hg] 112 mm[Hg] [facility] Body temperature 37.031526 Kaylie 37.166997 [facility] Respiratory rate 18 /min 18 /min [facility] Oxygen 100 % 100 % [place] saturation in Medical Arterial blood Center by Pulse oximetry Heart rate 88 /min 88 /min [facility] Diastolic blood 78 mm[Hg] 78 mm[Hg] [facility] [place] Systolic blood 130 mm[Hg] 130 mm[Hg] [facility] Body temperature 36.039228 Kaylie 36.225147 [facility] Respiratory rate 17 /min 17 /min [facility] Oxygen 100 % 100 % [place] saturation in Medical Arterial blood Center by Pulse oximetry Heart rate 81 /min 81 /min [facility] Diastolic blood 71 mm[Hg] 71 mm[Hg] [facility] [place] Systolic blood 117 mm[Hg] 117 mm[Hg] [facility] Body weight 100.058187 kg 100.238562 kg [facility] Body temperature 36.246431 Kaylie 36.377590 [facility] Respiratory rate 18 /min 18 /min [facility] Oxygen 94 % 94 % [place] saturation in Medical Arterial blood Center by Pulse oximetry Heart rate 97 /min 97 /min [facility] Body height 177.216524 cm 177.988970 cm [facility] Diastolic blood 72 mm[Hg] 72 mm[Hg] [facility] Systolic blood 118 mm[Hg] 118 mm[Hg] [facility] Body mass index 31.6 kg/m2 31.6 kg/m2 [facility] (BMI) [Ratio] Medical Center Body temperature 36.965242 Kaylie 36.705289 [facility] Respiratory rate 17 /min 17 /min [facility] Oxygen 95 % 95 % [place] saturation in Medical Arterial blood Center by Pulse oximetry Heart rate 94 /min 94 /min [facility] Diastolic blood 89 mm[Hg] 89 mm[Hg] [facility] pressure Medical Center Systolic blood 146 mm[Hg] 146 mm[Hg] [facility] Body temperature 36.181296 Kaylie 36.180639 [facility] Respiratory rate 18 /min 18 /min [facility] Oxygen 97 % 97 % [place] saturation in Medical Arterial blood Center by Pulse oximetry Heart rate 94 /min 94 /min [facility] Diastolic blood 85 mm[Hg] 85 mm[Hg] [facility] Systolic blood 157 mm[Hg] 157 mm[Hg] [facility] Oxygen 98 % 98 % [place] saturation in Medical Arterial blood Center by Pulse oximetry Heart rate 84 /min 84 /min [facility] Body height 175.663378 cm 175.934046 cm [facility] Diastolic blood 84 mm[Hg] 84 mm[Hg] [facility] Systolic blood 142 mm[Hg] 142 mm[Hg] [facility] Body mass index 25.6 kg/m2 25.6 kg/m2 [facility] (BMI) [Ratio] Medical Center Body weight 78.449490 kg 78.224678 kg [facility] Body temperature 36.582634 Kaylie 36.557501 [facility] Respiratory rate 19 /min 19 /min [facility] Body temperature 36.630485 Kaylie 36.518106 [facility] Respiratory rate 18 /min 18 /min [facility] Oxygen 96 % 96 % [place] saturation in Medical Arterial blood Center by Pulse oximetry Heart rate 95 /min 95 /min [facility] Diastolic blood 80 mm[Hg] 80 mm[Hg] [facility] Systolic blood 182 mm[Hg] 182 mm[Hg] [facility] Body temperature 36.615267 Kaylie 36.554679 [facility] Respiratory rate 18 /min 18 /min [facility] Oxygen 96 % 96 % [place] saturation in Medical Arterial blood Center by Pulse oximetry Heart rate 92 /min 92 /min [facility] Diastolic blood 89 mm[Hg] 89 mm[Hg] [facility] pressure Medical Center Systolic blood 139 mm[Hg] 139 mm[Hg] [facility] Body temperature 37.116165 Kaylie 37.688260 [facility] Respiratory rate 18 /min 18 /min [facility] Oxygen 98 % 98 % [place] saturation in Medical Arterial blood Center by Pulse oximetry Heart rate 90 /min 90 /min [facility] Diastolic blood 80 mm[Hg] 80 mm[Hg] [facility] pressure Medical Center Systolic blood 138 mm[Hg] 138 mm[Hg] [facility] Body temperature 37.728569 Kaylie 37.059289 [facility] Respiratory rate 18 /min 18 /min [facility] Oxygen 92 % 92 % [place] saturation in Medical Arterial blood Center by Pulse oximetry Heart rate 87 /min 87 /min [facility] Diastolic blood 66 mm[Hg] 66 mm[Hg] [facility] Systolic blood 119 mm[Hg] 119 mm[Hg] [facility] Body temperature 36.160371 Kaylie 36.251346 [facility] Respiratory rate 20 /min 20 /min [facility] Heart rate 94 /min 94 /min [facility] Diastolic blood 73 mm[Hg] 73 mm[Hg] [facility] Systolic blood 119 mm[Hg] 119 mm[Hg] [facility] Body weight 88.824908 kg 88.277366 kg [facility] [place] Body temperature 37.285990 Kaylie 37.378511 [facility] Respiratory rate 18 /min 18 /min [facility] Oxygen 96 % 96 % [place] saturation in Medical Arterial blood Center by Pulse oximetry Heart rate 90 /min 90 /min [facility] Body height 175.115826 cm 175.359710 cm [facility] Diastolic blood 72 mm[Hg] 72 mm[Hg] [facility] pressure Medical Center Systolic blood 135 mm[Hg] 135 mm[Hg] [facility] Body mass index 28.7 kg/m2 28.7 kg/m2 [facility] (BMI) [Ratio] Medical Center Body weight 104.689502 kg 104.205326 kg [facility] Body temperature 37.189019 Kaylie 37.927460 [facility] Respiratory rate 20 /min 20 /min [facility] Oxygen 93 % 93 % [facility] saturation in Medical Arterial blood Center by Pulse oximetry Heart rate 93 /min 93 /min [facility] Body height 177.099621 cm 177.120206 cm [facility] Diastolic blood 73 mm[Hg] 73 mm[Hg] [facility] Systolic blood 125 mm[Hg] 125 mm[Hg] [facility] Body mass index 33.0 kg/m2 33.0 kg/m2 [facility] (BMI) [Ratio] [facility] Center Body temperature 36.343808 Kaylie 36.278681 [facility] Respiratory rate 18 /min 18 /min [facility] Oxygen 99 % 99 % [place] saturation in Medical Arterial blood Center by Pulse oximetry Heart rate 89 /min 89 /min [facility] Diastolic blood 75 mm[Hg] 75 mm[Hg] [facility] pressure Medical Center Systolic blood 132 mm[Hg] 132 mm[Hg] [facility] Body temperature 36.195605 Kaylie 36.735880 [facility] Respiratory rate 18 /min 18 /min [facility] Oxygen 99 % 99 % [place] saturation in Medical Arterial blood Center by Pulse oximetry Heart rate 78 /min 78 /min [facility] Diastolic blood 82 mm[Hg] 82 mm[Hg] [facility] pressure Medical Center Systolic blood 133 mm[Hg] 133 mm[Hg] [facility] Body weight 104.896422 kg 104.300584 kg [facility] Body temperature 36.446239 Kaylie 36.813503 [facility] Respiratory rate 20 /min 20 /min [facility] Oxygen 98 % 98 % [place] saturation in Medical Arterial blood Center by Pulse oximetry Heart rate 98 /min 98 /min [facility] Body height 177.902905 cm 177.253286 cm [facility] Diastolic blood 74 mm[Hg] 74 mm[Hg] [facility] pressure Medical Center Systolic blood 118 mm[Hg] 118 mm[Hg] [facility] Body mass index 33.0 kg/m2 33.0 kg/m2 [facility] (BMI) [Ratio] Medical Center Body temperature 36.503084 Kaylie 36.121740 [facility] Respiratory rate 18 /min 18 /min [facility] Oxygen 96 % 96 % [place] saturation in Medical Arterial blood Center by Pulse oximetry Heart rate 89 /min 89 /min [facility] Diastolic blood 87 mm[Hg] 87 mm[Hg] [facility] Systolic blood 132 mm[Hg] 132 mm[Hg] [facility] Body temperature 37.649280 Kaylie 37.749241 [facility] Respiratory rate 18 /min 18 /min [facility] Oxygen 99 % 99 % [place] saturation in Medical Arterial blood Center by Pulse oximetry Heart rate 84 /min 84 /min [facility] Diastolic blood 72 mm[Hg] 72 mm[Hg] [facility] Center Systolic blood 117 mm[Hg] 117 mm[Hg] [facility] Body temperature 36.223839 Kaylie 36.564345 [facility] Respiratory rate 18 /min 18 /min [facility] Oxygen 98 % 98 % [place] saturation in Medical Arterial blood Center by Pulse oximetry Heart rate 88 /min 88 /min [facility] Diastolic blood 95 mm[Hg] 95 mm[Hg] [facility] pressure Medical Center Systolic blood 135 mm[Hg] 135 mm[Hg] [facility] Body temperature 36.092920 Kaylie 36.554125 [facility] Respiratory rate 18 /min 18 /min [facility] Oxygen 96 % 96 % [place] saturation in Medical Arterial blood Center by Pulse oximetry Heart rate 98 /min 98 /min [facility] Diastolic blood 96 mm[Hg] 96 mm[Hg] [facility] Systolic blood 138 mm[Hg] 138 mm[Hg] [facility] Body temperature 36.191220 Kaylie 36.688671 [facility] Respiratory rate 18 /min 18 /min [facility] Oxygen 98 % 98 % [place] saturation in Medical Arterial blood Center by Pulse oximetry Heart rate 76 /min 76 /min [facility] Diastolic blood 76 mm[Hg] 76 mm[Hg] [facility] Systolic blood 132 mm[Hg] 132 mm[Hg] [facility] Body temperature 36.268229 Kaylie 36.219469 [facility] Respiratory rate 18 /min 18 /min [facility] Oxygen 98 % 98 % [place] saturation in Medical Arterial blood Center by Pulse oximetry Heart rate 76 /min 76 /min [facility] Diastolic blood 78 mm[Hg] 78 mm[Hg] [facility] Systolic blood 112 mm[Hg] 112 mm[Hg] [facility] Heart rate 105 /min 105 /min [facility] Body height 177.226589 cm 177.471266 cm [facility] Diastolic blood 65 mm[Hg] 65 mm[Hg] [facility] Systolic blood 124 mm[Hg] 124 mm[Hg] [facility] Body mass index 33.0 kg/m2 33.0 kg/m2 [facility] (BMI) [Ratio] Medical Center Body weight 104.714480 kg 104.958305 kg [facility] Body temperature 37.229575 Kaylie 37.594465 [facility] Respiratory rate 20 /min 20 /min [facility] Oxygen 92 % 92 % [place] saturation in Medical Arterial blood Center by Pulse oximetry Body temperature 37.513868 Kaylie 37.743579 [facility] Respiratory rate 18 /min 18 /min [facility] Oxygen 93 % 93 % [place] saturation in Medical Arterial blood Center by Pulse oximetry Heart rate 101 /min 101 /min [facility] Diastolic blood 68 mm[Hg] 68 mm[Hg] [facility] Center Systolic blood 108 mm[Hg] 108 mm[Hg] [facility] Body weight 79.420409 kg 79.775903 kg [facility] Body temperature 37.347832 Kaylie 37.365010 [facility] Respiratory rate 18 /min 18 /min [facility] Oxygen 95 % 95 % [place] saturation in Medical Arterial blood Center by Pulse oximetry Heart rate 101 /min 101 /min [facility] Body height 175.412851 cm 175.108038 cm [facility] Diastolic blood 66 mm[Hg] 66 mm[Hg] [facility] pressure Medical Center Systolic blood 98 mm[Hg] 98 mm[Hg] [facility] Body mass index 25.8 kg/m2 25.8 kg/m2 [facility] (BMI) [Ratio] Medical Center Body temperature 36.357266 Kaylie 36.049947 [facility] Respiratory rate 18 /min 18 /min [facility] Oxygen 98 % 98 % [place] saturation in Medical Arterial blood Center by Pulse oximetry Heart rate 79 /min 79 /min [facility] Diastolic blood 69 mm[Hg] 69 mm[Hg] [facility] Systolic blood 103 mm[Hg] 103 mm[Hg] [facility] Body temperature 36.669029 Kaylie 36.774788 Kay[facility] Respiratory rate 18 /min 18 /min [facility] Oxygen 98 % 98 % [place] saturation in Medical Arterial blood Center by Pulse oximetry Heart rate 78 /min 78 /min [facility] Diastolic blood 76 mm[Hg] 76 mm[Hg] [facility] Systolic blood 122 mm[Hg] 122 mm[Hg] [facility] Body temperature 36.012250 Kaylie 36.472445 [facility] Respiratory rate 19 /min 19 /min [facility] Oxygen 96 % 96 % [place] saturation in Medical Arterial blood Center by Pulse oximetry Heart rate 86 /min 86 /min [facility] Diastolic blood 63 mm[Hg] 63 mm[Hg] [facility] Systolic blood 103 mm[Hg] 103 mm[Hg] [facility] Body temperature 36.271377 Kaylie 36.773798 [facility] Respiratory rate 18 /min 18 /min [facility] Oxygen 98 % 98 % [place] saturation in Medical Arterial blood Center by Pulse oximetry Heart rate 84 /min 84 /min [facility] Diastolic blood 67 mm[Hg] 67 mm[Hg] [facility] Systolic blood 119 mm[Hg] 119 mm[Hg] [facility] Body temperature 37.848981 Kaylie 37.721225 [facility] Respiratory rate 18 /min 18 /min [facility] Oxygen 98 % 98 % [place] saturation in Medical Arterial blood Center by Pulse oximetry Heart rate 91 /min 91 /min [facility] Diastolic blood 60 mm[Hg] 60 mm[Hg] [facility] Systolic blood 103 mm[Hg] 103 mm[Hg] [facility] Body temperature 36.658165 Kaylie 36.102646 [facility] Respiratory rate 18 /min 18 /min [facility] Oxygen 98 % 98 % [place] saturation in Medical Arterial blood Center by Pulse oximetry Heart rate 76 /min 76 /min [facility] Diastolic blood 76 mm[Hg] 76 mm[Hg] [facility] pressure Medical Center Systolic blood 124 mm[Hg] 124 mm[Hg] [facility] Body temperature 36.743140 Kaylie 36.369530 [facility] Respiratory rate 18 /min 18 /min [facility] Oxygen 98 % 98 % [place] saturation in Medical Arterial blood Center by Pulse oximetry Heart rate 76 /min 76 /min [facility] Diastolic blood 76 mm[Hg] 76 mm[Hg] [facility] Systolic blood 124 mm[Hg] 124 mm[Hg] [facility] Body weight 104.872350 kg 104.083736 kg [facility] [place] Body temperature 36.491719 Kaylie 36.732140 [facility] Respiratory rate 18 /min 18 /min [facility] Oxygen 96 % 96 % [place] saturation in Medical Arterial blood Center by Pulse oximetry Heart rate 90 /min 90 /min [facility] Body height 177.829111 cm 177.304063 cm [facility] Diastolic blood 76 mm[Hg] 76 mm[Hg] [facility] Systolic blood 116 mm[Hg] 116 mm[Hg] [facility] Body mass index 33.0 kg/m2 33.0 kg/m2 [facility] (BMI) [Ratio] Medical Center Body temperature 36.333817 Kaylie 36.254025 [facility] Respiratory rate 18 /min 18 /min [facility] Heart rate 85 /min 85 /min [facility] Diastolic blood 82 mm[Hg] 82 mm[Hg] [facility] Systolic blood 141 mm[Hg] 141 mm[Hg] [facility] Body temperature 36.344706 Kaylie 36.609796 [facility] Respiratory rate 18 /min 18 /min [facility] Heart rate 84 /min 84 /min [facility] Diastolic blood 81 mm[Hg] 81 mm[Hg] [facility] Systolic blood 139 mm[Hg] 139 mm[Hg] [facility] Body weight 95.842501 kg 95.992762 kg [facility] Body temperature 36.028687 Kaylie 36.639245 [facility] Respiratory rate 17 /min 17 /min [facility] Oxygen 99 % 99 % [facility] saturation in Medical Arterial blood Center by Pulse oximetry Heart rate 86 /min 86 /min [facility] Body height 177.881091 cm 177.498704 cm [facility] Diastolic blood 87 mm[Hg] 87 mm[Hg] [facility] Systolic blood 137 mm[Hg] 137 mm[Hg] [facility] Body mass index 30.1 kg/m2 30.1 kg/m2 [facility] (BMI) [Ratio] Medical Center Body temperature 37.371616 Kaylie 37.023522 [facility] Respiratory rate 18 /min 18 /min [facility] Oxygen 94 % 94 % [facility] saturation in Medical Arterial blood Center by Pulse oximetry Heart rate 103 /min 103 /min [facility] Diastolic blood 72 mm[Hg] 72 mm[Hg] [facility] Systolic blood 111 mm[Hg] 111 mm[Hg] [facility] Body temperature 36.639516 Kaylie 36.473521 [facility] Respiratory rate 16 /min 16 /min [facility] Oxygen 96 % 96 % [facility] saturation in Medical Arterial blood Center by Pulse oximetry Heart rate 97 /min 97 /min [facility] Diastolic blood 77 mm[Hg] 77 mm[Hg] [facility] pressure Medical Center Systolic blood 133 mm[Hg] 133 mm[Hg] [facility] Body temperature 36.002525 Kaylie 36.482768 [facility] Respiratory rate 17 /min 17 /min [facility] Oxygen 94 % 94 % [facility] saturation in Medical Arterial blood Center by Pulse oximetry Heart rate 92 /min 92 /min [facility] Diastolic blood 80 mm[Hg] 80 mm[Hg] [facility] Systolic blood 122 mm[Hg] 122 mm[Hg] [facility] Body weight 113.565251 kg 113.482557 kg [facility] Body temperature 36.865038 Kaylie 36.225716 [facility] Respiratory rate 16 /min 16 /min [facility] Oxygen 94 % 94 % [facility] saturation in Medical Arterial blood Center by Pulse oximetry Heart rate 90 /min 90 /min [facility] Body height 177.703203 cm 177.279142 cm [facility] Diastolic blood 64 mm[Hg] 64 mm[Hg] [facility] Systolic blood 128 mm[Hg] 128 mm[Hg] [facility] Body mass index 35.8 kg/m2 35.8 kg/m2 [facility] (BMI) [Ratio] Medical Center Body temperature 36.000159 Kaylie 36.651594 [facility] Respiratory rate 18 /min 18 /min [facility] Oxygen 95 % 95 % [facility] saturation in Medical Arterial blood Center by Pulse oximetry Heart rate 76 /min 76 /min [facility] Diastolic blood 76 mm[Hg] 76 mm[Hg] [facility] Systolic blood 128 mm[Hg] 128 mm[Hg] [facility] Body temperature 36.518518 Kaylie 36.595386 [facility] Respiratory rate 18 /min 18 /min [facility] Oxygen 97 % 97 % [place] saturation in Medical Arterial blood Center by Pulse oximetry Heart rate 78 /min 78 /min [facility] Diastolic blood 70 mm[Hg] 70 mm[Hg] [facility] Systolic blood 124 mm[Hg] 124 mm[Hg] [facility] Body weight 86.350710 kg 86.108854 kg [facility] [place] Body temperature 36.036558 Kaylie 36.753289 [facility] Respiratory rate 19 /min 19 /min [facility] Oxygen 97 % 97 % [facility] saturation in Medical Arterial blood Center by Pulse oximetry Heart rate 74 /min 74 /min [facility] Body height 180.563869 cm 180.424965 cm [facility] Diastolic blood 68 mm[Hg] 68 mm[Hg] [facility] Center Systolic blood 128 mm[Hg] 128 mm[Hg] [facility] Body mass index 26.4 kg/m2 26.4 kg/m2 [facility] (BMI) [Ratio] Medical Center Body temperature 36.080445 Kaylie 36.169955 [facility] Respiratory rate 18 /min 18 /min [facility] Oxygen 98 % 98 % [place] saturation in Medical Arterial blood Center by Pulse oximetry Heart rate 91 /min 91 /min [facility] Diastolic blood 65 mm[Hg] 65 mm[Hg] [facility] Systolic blood 129 mm[Hg] 129 mm[Hg] [facility] Body temperature 36.514250 Kaylie 36.627043 [facility] Respiratory rate 16 /min 16 /min [facility] Oxygen 98 % 98 % [place] saturation in Medical Arterial blood Center by Pulse oximetry Heart rate 82 /min 82 /min [facility] Diastolic blood 64 mm[Hg] 64 mm[Hg] [facility] Systolic blood 123 mm[Hg] 123 mm[Hg] [facility] Body temperature 36.463173 Kaylie 36.700332 [facility] Respiratory rate 14 /min 14 /min [facility] Oxygen 95 % 95 % [place] saturation in Medical Arterial blood Center by Pulse oximetry Heart rate 61 /min 61 /min [facility] Diastolic blood 74 mm[Hg] 74 mm[Hg] [facility] Systolic blood 124 mm[Hg] 124 mm[Hg] [facility] Body temperature 37.190989 Kaylie 37.308918 [facility] Respiratory rate 16 /min 16 /min [facility] Oxygen 99 % 99 % [place] saturation in Medical Arterial blood Center by Pulse oximetry Heart rate 89 /min 89 /min [facility] Diastolic blood 76 mm[Hg] 76 mm[Hg] [facility] Systolic blood 125 mm[Hg] 125 mm[Hg] [facility] [place] Body temperature 37.067059 Kaylie 37.553460 [facility] Respiratory rate 14 /min 14 /min [facility] Oxygen 99 % 99 % [place] saturation in Medical Arterial blood Center by Pulse oximetry Heart rate 91 /min 91 /min [facility] Diastolic blood 80 mm[Hg] 80 mm[Hg] [facility] Systolic blood 120 mm[Hg] 120 mm[Hg] [facility] Body temperature 36.161088 Kaylie 36.038795 [facility] Respiratory rate 18 /min 18 /min [facility] Oxygen 99 % 99 % [place] saturation in Medical Arterial blood Center by Pulse oximetry Heart rate 93 /min 93 /min [facility] Diastolic blood 78 mm[Hg] 78 mm[Hg] [facility] Systolic blood 115 mm[Hg] 115 mm[Hg] [facility] Body temperature 36.432113 Kaylie 36.644929 [facility] Respiratory rate 18 /min 18 /min [facility] Oxygen 95 % 95 % [place] saturation in Medical Arterial blood Center by Pulse oximetry Heart rate 83 /min 83 /min [facility] Diastolic blood 69 mm[Hg] 69 mm[Hg] [facility] pressure Medical Center Systolic blood 102 mm[Hg] 102 mm[Hg] [facility] Body temperature 37.686047 Kaylie 37.713354 [facility] Respiratory rate 18 /min 18 /min [facility] Oxygen 98 % 98 % [place] saturation in Medical Arterial blood Center by Pulse oximetry Heart rate 91 /min 91 /min [facility] Diastolic blood 65 mm[Hg] 65 mm[Hg] [facility] pressure Medical Center Systolic blood 101 mm[Hg] 101 mm[Hg] [facility] Body temperature 37.844933 Kaylie 37.538372 [facility] Respiratory rate 18 /min 18 /min [facility] Oxygen 96 % 96 % [place] saturation in Medical Arterial blood Center by Pulse oximetry Heart rate 94 /min 94 /min [facility] Diastolic blood 87 mm[Hg] 87 mm[Hg] [facility] pressure Medical Center Systolic blood 156 mm[Hg] 156 mm[Hg] [facility] Body temperature 36.411093 Kaylie 36.078587 [facility] Respiratory rate 17 /min 17 /min [facility] Oxygen 96 % 96 % [place] saturation in Medical Arterial blood Center by Pulse oximetry Heart rate 95 /min 95 /min [facility] Diastolic blood 91 mm[Hg] 91 mm[Hg] [facility] pressure Medical Center Systolic blood 149 mm[Hg] 149 mm[Hg] [facility] [place] Body temperature 36.656181 Kaylie 36.572972 Kay[facility] Respiratory rate 17 /min 17 /min [facility] Oxygen 96 % 96 % [place] saturation in Medical Arterial blood Center by Pulse oximetry Heart rate 92 /min 92 /min [facility] Diastolic blood 86 mm[Hg] 86 mm[Hg] [facility] pressure Medical Center Systolic blood 157 mm[Hg] 157 mm[Hg] [facility] Body temperature 36.259895 Kaylie 36.938679 [facility] Respiratory rate 19 /min 19 /min [facility] Oxygen 99 % 99 % [place] saturation in Medical Arterial blood Center by Pulse oximetry Heart rate 100 /min 100 /min [facility] Diastolic blood 91 mm[Hg] 91 mm[Hg] [facility] pressure [facility] Center Systolic blood 160 mm[Hg] 160 mm[Hg] [facility] Body temperature 36.356191 Kaylie 36.638020 Kay[facility] Respiratory rate 22 /min 22 /min [facility] Oxygen 95 % 95 % [place] saturation in Medical Arterial blood Center by Pulse oximetry Heart rate 82 /min 82 /min [facility] Diastolic blood 91 mm[Hg] 91 mm[Hg] [facility] pressure Medical Center Systolic blood 143 mm[Hg] 143 mm[Hg] [facility] Body temperature 37.555610 Kaylie 37.229734 Kay[facility] Respiratory rate 20 /min 20 /min [facility] Oxygen 95 % 95 % [place] saturation in Medical Arterial blood Center by Pulse oximetry Heart rate 111 /min 111 /min [facility] Diastolic blood 89 mm[Hg] 89 mm[Hg] [facility] Systolic blood 128 mm[Hg] 128 mm[Hg] [facility] Respiratory rate 20 /min 20 /min [facility] Oxygen 95 % 95 % [facility] saturation in Medical Arterial blood Center by Pulse oximetry Heart rate 113 /min 113 /min [facility] Body height 177.229145 cm 177.494662 cm [facility] Diastolic blood 68 mm[Hg] 68 mm[Hg] [facility] Systolic blood 133 mm[Hg] 133 mm[Hg] [facility] Body mass index 31.6 kg/m2 31.6 kg/m2 [facility] (BMI) [Ratio] Medical Center Body weight 100.729074 kg 100.040602 kg [facility] Body temperature 37.660776 Kaylie 37.672425 [facility] Body temperature 36.290224 Kaylie 36.183073 Kay[facility] Respiratory rate 18 /min 18 /min [facility] Oxygen 97 % 97 % [facility] saturation in Medical Arterial blood Center by Pulse oximetry Heart rate 67 /min 67 /min [facility] Diastolic blood 78 mm[Hg] 78 mm[Hg] [facility] Systolic blood 134 mm[Hg] 134 mm[Hg] [facility] Body weight 95.154078 kg 95.497109 kg [facility] Body temperature 36.179328 Kaylie 36.826666 [facility] Respiratory rate 20 /min 20 /min [facility] Oxygen 100 % 100 % [place] saturation in Medical Arterial blood Center by Pulse oximetry Heart rate 84 /min 84 /min [facility] Body height 177.787793 cm 177.414558 cm [facility] Diastolic blood 90 mm[Hg] 90 mm[Hg] [facility] Systolic blood 130 mm[Hg] 130 mm[Hg] [facility] Body mass index 30.0 kg/m2 30.0 kg/m2 [facility] (BMI) [Ratio] [facility] Center Body temperature 36.587482 Kaylie 36.926716 [facility] Respiratory rate 18 /min 18 /min [facility] Oxygen 95 % 95 % [place] saturation in Medical Arterial blood Center by Pulse oximetry Heart rate 73 /min 73 /min [facility] Diastolic blood 71 mm[Hg] 71 mm[Hg] [facility] Systolic blood 139 mm[Hg] 139 mm[Hg] [facility] Body weight 100.955873 kg 100.785380 kg [facility] Body temperature 36.356892 Kaylie 36.846948 [facility] Respiratory rate 18 /min 18 /min [facility] Oxygen 92 % 92 % [place] saturation in Medical Arterial blood Center by Pulse oximetry Heart rate 102 /min 102 /min [facility] Body height 177.524734 cm 177.876298 cm [facility] Diastolic blood 56 mm[Hg] 56 mm[Hg] [facility] Systolic blood 109 mm[Hg] 109 mm[Hg] [facility] Body mass index 31.6 kg/m2 31.6 kg/m2 [facility] (BMI) [Ratio] Medical Center Body temperature 36.964196 Kaylie 36.363464 Kay[facility] Respiratory rate 18 /min 18 /min [facility] Oxygen 98 % 98 % [place] saturation in Medical Arterial blood Center by Pulse oximetry Heart rate 88 /min 88 /min [facility] Diastolic blood 78 mm[Hg] 78 mm[Hg] [facility] Systolic blood 148 mm[Hg] 148 mm[Hg] [facility] Body temperature 36.766342 Kaylie 36.986675 [facility] Respiratory rate 18 /min 18 /min [facility] Oxygen 98 % 98 % [place] saturation in Medical Arterial blood Center by Pulse oximetry Heart rate 98 /min 98 /min [facility] Diastolic blood 68 mm[Hg] 68 mm[Hg] [facility] Systolic blood 113 mm[Hg] 113 mm[Hg] [facility] Body temperature 37.517077 Kaylie 37.711999 [facility] Respiratory rate 18 /min 18 /min [facility] Oxygen 95 % 95 % [place] saturation in Medical Arterial blood Center by Pulse oximetry Heart rate 84 /min 84 /min [facility] Diastolic blood 82 mm[Hg] 82 mm[Hg] [facility] Systolic blood 131 mm[Hg] 131 mm[Hg] [facility] Body temperature 37.369528 Kaylie 37.541549 [facility] Respiratory rate 18 /min 18 /min [facility] Oxygen 94 % 94 % [place] saturation in Medical Arterial blood Center by Pulse oximetry Heart rate 88 /min 88 /min [facility] Diastolic blood 91 mm[Hg] 91 mm[Hg] [facility] Systolic blood 134 mm[Hg] 134 mm[Hg] [facility] [place] Body weight 102.038140 kg 102.835851 kg [facility] [place] Respiratory rate 18 /min 18 /min [facility] Oxygen 93 % 93 % [place] saturation in Medical Arterial blood Center by Pulse oximetry Heart rate 98 /min 98 /min [facility] Body height 182.758437 cm 182.271411 cm [facility] Diastolic blood 80 mm[Hg] 80 mm[Hg] [facility] Systolic blood 178 mm[Hg] 178 mm[Hg] [facility] Body mass index 30.5 kg/m2 30.5 kg/m2 [facility] (BMI) [Ratio] Medical Center Body temperature 36.399125 Kaylie 36.438320 [facility] Respiratory rate 18 /min 18 /min [facility] Oxygen 95 % 95 % [place] saturation in Medical Arterial blood Center by Pulse oximetry Heart rate 96 /min 96 /min [facility] Diastolic blood 89 mm[Hg] 89 mm[Hg] [facility] pressure [facility] Center Systolic blood 114 mm[Hg] 114 mm[Hg] [facility] Body temperature 36.230096 Kaylie 36.593899 [facility] Respiratory rate 17 /min 17 /min [facility] Oxygen 96 % 96 % [place] saturation in Medical Arterial blood Center by Pulse oximetry Heart rate 98 /min 98 /min [facility] Diastolic blood 68 mm[Hg] 68 mm[Hg] [facility] pressure [facility] Center Systolic blood 128 mm[Hg] 128 mm[Hg] [facility] Oxygen 97 % 97 % [place] saturation in Medical Arterial blood Center by Pulse oximetry Heart rate 116 /min 116 /min [facility] Diastolic blood 61 mm[Hg] 61 mm[Hg] [facility] pressure Medical Center Systolic blood 117 mm[Hg] 117 mm[Hg] [facility] Respiratory rate 18 /min 18 /min [facility] Body temperature 36.065472 Kaylie 36.400691 [facility] Body temperature 36.324252 Kaylie 36.279297 [facility] Respiratory rate 18 /min 18 /min [facility] Oxygen 97 % 97 % [place] saturation in Medical Arterial blood Center by Pulse oximetry Heart rate 76 /min 76 /min [facility] Diastolic blood 76 mm[Hg] 76 mm[Hg] [facility] pressure [facility] Center Systolic blood 138 mm[Hg] 138 mm[Hg] [facility] Body temperature 36.438328 Kaylie 36.778947 [facility] Respiratory rate 18 /min 18 /min [facility] Oxygen 98 % 98 % [place] saturation in Medical Arterial blood Center by Pulse oximetry Heart rate 85 /min 85 /min [facility] Diastolic blood 95 mm[Hg] 95 mm[Hg] [facility] pressure Medical Center Systolic blood 154 mm[Hg] 154 mm[Hg] [facility] Body weight 86.738735 kg 86.178734 kg [facility] Body temperature 36.916396 Kaylie 36.609411 [facility] Respiratory rate 20 /min 20 /min [facility] Oxygen 95 % 95 % [place] saturation in Medical Arterial blood Center by Pulse oximetry Heart rate 76 /min 76 /min [facility] Body height 170.521631 cm 170.825747 cm [facility] Diastolic blood 74 mm[Hg] 74 mm[Hg] [facility] pressure [facility] Center Systolic blood 120 mm[Hg] 120 mm[Hg] [facility] Body mass index 29.7 kg/m2 29.7 kg/m2 [facility] (BMI) [Ratio] Medical Center Body temperature 36.025143 Kaylie 36.374308 Kay[facility] Respiratory rate 16 /min 16 /min [facility] Oxygen 95 % 95 % [place] saturation in Medical Arterial blood Center by Pulse oximetry Heart rate 92 /min 92 /min [facility] Diastolic blood 68 mm[Hg] 68 mm[Hg] [facility] Systolic blood 112 mm[Hg] 112 mm[Hg] [facility] Body temperature 37.780753 Kaylie 37.842895 Kay[facility] Respiratory rate 18 /min 18 /min [facility] Oxygen 95 % 95 % [place] saturation in Medical Arterial blood Center by Pulse oximetry Heart rate 88 /min 88 /min [facility] Diastolic blood 57 mm[Hg] 57 mm[Hg] [facility] Systolic blood 107 mm[Hg] 107 mm[Hg] [facility] Body weight 120.636191 kg 120.003016 kg [facility] Body temperature 36.428426 Kaylie 36.734577 Kay[facility] Respiratory rate 18 /min 18 /min [facility] Oxygen 98 % 98 % [place] saturation in Medical Arterial blood Center by Pulse oximetry Heart rate 84 /min 84 /min [facility] Body height 182.795092 cm 182.845853 cm [facility] Diastolic blood 78 mm[Hg] 78 mm[Hg] [facility] pressure [facility] Center Systolic blood 148 mm[Hg] 148 mm[Hg] [facility] Body mass index 35.8 kg/m2 35.8 kg/m2 [facility] (BMI) [Ratio] Medical Center Body temperature 37.130521 Kaylie 37.912235 Kay[facility] Respiratory rate 18 /min 18 /min [facility] Oxygen 95 % 95 % [place] saturation in Medical Arterial blood Center by Pulse oximetry Heart rate 94 /min 94 /min [facility] Diastolic blood 56 mm[Hg] 56 mm[Hg] [facility] Systolic blood 110 mm[Hg] 110 mm[Hg] [facility] Body temperature 38.499489 Kaylie 38.299302 [facility] Respiratory rate 18 /min 18 /min [facility] Oxygen 97 % 97 % [place] saturation in Medical Arterial blood Center by Pulse oximetry Heart rate 98 /min 98 /min [facility] Diastolic blood 87 mm[Hg] 87 mm[Hg] [facility] [place] Systolic blood 140 mm[Hg] 140 mm[Hg] [facility] Body temperature 36.391082 Kaylie 36.721222 Kay[facility] Respiratory rate 16 /min 16 /min [facility] Oxygen 98 % 98 % [place] saturation in Medical Arterial blood Center by Pulse oximetry Heart rate 87 /min 87 /min [facility] Diastolic blood 84 mm[Hg] 84 mm[Hg] [facility] Systolic blood 138 mm[Hg] 138 mm[Hg] [facility] Body temperature 37.603453 Kaylie 37.186013 [facility] Respiratory rate 18 /min 18 /min [facility] Oxygen 97 % 97 % [place] saturation in Medical Arterial blood Center by Pulse oximetry Heart rate 88 /min 88 /min [facility] Diastolic blood 72 mm[Hg] 72 mm[Hg] [facility] Systolic blood 134 mm[Hg] 134 mm[Hg] [facility] [place] Body temperature 36.665167 Kaylie 36.100811 [facility] Respiratory rate 18 /min 18 /min [facility] Oxygen 98 % 98 % [place] saturation in Medical Arterial blood Center by Pulse oximetry Heart rate 71 /min 71 /min [facility] Diastolic blood 68 mm[Hg] 68 mm[Hg] [facility] pressure [facility] Center Systolic blood 133 mm[Hg] 133 mm[Hg] [facility] Body temperature 35.455795 Kaylie 35.481175 [facility] Respiratory rate 17 /min 17 /min [facility] Oxygen 95 % 95 % [place] saturation in Medical Arterial blood Center by Pulse oximetry Heart rate 93 /min 93 /min [facility] Diastolic blood 105 mm[Hg] 105 mm[Hg] [facility] pressure Medical Center Systolic blood 180 mm[Hg] 180 mm[Hg] [facility] [place] Body temperature 36.307006 Kaylie 36.578989 [facility] Respiratory rate 20 /min 20 /min [facility] Oxygen 97 % 97 % [place] saturation in Medical Arterial blood Center by Pulse oximetry Heart rate 89 /min 89 /min [facility] Diastolic blood 92 mm[Hg] 92 mm[Hg] [facility] [place] Systolic blood 158 mm[Hg] 158 mm[Hg] [facility] [place] Body temperature 36.937757 Kaylie 36.803298 Kay[facility] Respiratory rate 18 /min 18 /min [facility] Oxygen 96 % 96 % [place] saturation in Medical Arterial blood Center by Pulse oximetry Heart rate 86 /min 86 /min [facility] Diastolic blood 87 mm[Hg] 87 mm[Hg] [facility] Systolic blood 163 mm[Hg] 163 mm[Hg] [facility] [place] Body temperature 36.972419 Kaylie 36.846007 [facility] Respiratory rate 20 /min 20 /min [facility] Oxygen 98 % 98 % [place] saturation in Medical Arterial blood Center by Pulse oximetry Heart rate 89 /min 89 /min [facility] Diastolic blood 103 mm[Hg] 103 mm[Hg] [facility] Systolic blood 154 mm[Hg] 154 mm[Hg] [facility] Heart rate 91 /min 91 /min [facility] Diastolic blood 110 mm[Hg] 110 mm[Hg] [facility] pressure Medical Center Systolic blood 167 mm[Hg] 167 mm[Hg] [facility] Body temperature 36.589965 Kaylie 36.026780 Kay[facility] Respiratory rate 18 /min 18 /min [facility] Oxygen 98 % 98 % [place] saturation in Medical Arterial blood Center by Pulse oximetry Body temperature 36.319915 Kaylie 36.862023 [facility] Respiratory rate 20 /min 20 /min [facility] Oxygen 95 % 95 % [place] saturation in Medical Arterial blood Center by Pulse oximetry Heart rate 96 /min 96 /min [facility] Diastolic blood 146 mm[Hg] 146 mm[Hg] [facility] pressure Medical Center Systolic blood 211 mm[Hg] 211 mm[Hg] [facility] [place] Body temperature 36.696212 Kaylie 36.211348 [facility] Respiratory rate 18 /min 18 /min [facility] Oxygen 97 % 97 % [place] saturation in Medical Arterial blood Center by Pulse oximetry Heart rate 79 /min 79 /min [facility] Diastolic blood 106 mm[Hg] 106 mm[Hg] [facility] pressure Medical Center Systolic blood 179 mm[Hg] 179 mm[Hg] [facility] [place] Body temperature 37.056213 Kaylie 37.518545 Kay[facility] Respiratory rate 18 /min 18 /min [facility] Oxygen 96 % 96 % [place] saturation in Medical Arterial blood Center by Pulse oximetry Heart rate 81 /min 81 /min [facility] Diastolic blood 82 mm[Hg] 82 mm[Hg] [facility] Systolic blood 151 mm[Hg] 151 mm[Hg] [facility] Body temperature 36.607263 Kaylie 36.740179 [facility] Respiratory rate 18 /min 18 /min [facility] Heart rate 77 /min 77 /min [facility] Body temperature 37.180487 Kaylie 37.932059 Kay[facility] Respiratory rate 18 /min 18 /min [facility] Oxygen 97 % 97 % [place] saturation in Medical Arterial blood Center by Pulse oximetry Heart rate 80 /min 80 /min [facility] Diastolic blood 89 mm[Hg] 89 mm[Hg] [facility] pressure Medical Center Systolic blood 153 mm[Hg] 153 mm[Hg] [facility] Oxygen 97 % 97 % [place] saturation in Medical Arterial blood Center by Pulse oximetry Diastolic blood 90 mm[Hg] 90 mm[Hg] [facility] pressure Medical Center Systolic blood 177 mm[Hg] 177 mm[Hg] [facility] Body temperature 36.268040 Kaylie 36.557641 Kay[facility] Respiratory rate 17 /min 17 /min [facility] Oxygen 95 % 95 % [facility] saturation in Medical Arterial blood Center by Pulse oximetry Heart rate 67 /min 67 /min [facility] Diastolic blood 98 mm[Hg] 98 mm[Hg] [facility] Systolic blood 160 mm[Hg] 160 mm[Hg] [facility] Body weight 100.017057 kg 100.417380 kg [facility] Body temperature 36.816860 Kaylie 36.716988 Kay[facility] Respiratory rate 19 /min 19 /min [facility] Oxygen 98 % 98 % [facility] saturation in Medical Arterial blood Center by Pulse oximetry Heart rate 92 /min 92 /min [facility] Body height 177.381251 cm 177.816804 cm [facility] Diastolic blood 103 mm[Hg] 103 mm[Hg] [facility] Systolic blood 166 mm[Hg] 166 mm[Hg] [facility] Body mass index 31.6 kg/m2 31.6 kg/m2 [facility] (BMI) [Ratio] Medical Center Body temperature 36.640083 Kaylie 36.327462 [facility] Respiratory rate 18 /min 18 /min [facility] Oxygen 96 % 96 % [place] saturation in Medical Arterial blood Center by Pulse oximetry Heart rate 90 /min 90 /min [facility] Diastolic blood 74 mm[Hg] 74 mm[Hg] [facility] Systolic blood 145 mm[Hg] 145 mm[Hg] [facility] Body temperature 36.085161 Kaylie 36.356338 [facility] Respiratory rate 18 /min 18 /min [facility] Oxygen 97 % 97 % [place] saturation in Medical Arterial blood Center by Pulse oximetry Heart rate 92 /min 92 /min [facility] Diastolic blood 78 mm[Hg] 78 mm[Hg] [facility] pressure [facility] Center Systolic blood 147 mm[Hg] 147 mm[Hg] [facility] Body temperature 37.336756 Kaylie 37.081991 Kay[facility] Respiratory rate 19 /min 19 /min [facility] Oxygen 96 % 96 % [place] saturation in Medical Arterial blood Center by Pulse oximetry Heart rate 90 /min 90 /min [facility] Diastolic blood 74 mm[Hg] 74 mm[Hg] [facility] pressure Medical Center Systolic blood 132 mm[Hg] 132 mm[Hg] [facility] [place] Body temperature 36.660777 Kaylie 36.149771 Kay[facility] Respiratory rate 18 /min 18 /min [facility] Oxygen 92 % 92 % [place] saturation in Medical Arterial blood Center by Pulse oximetry Heart rate 93 /min 93 /min [facility] Diastolic blood 78 mm[Hg] 78 mm[Hg] [facility] pressure Medical Center Systolic blood 130 mm[Hg] 130 mm[Hg] [facility] [place] Body temperature 36.511472 Kaylie 36.387272 Kaylie [facility] Respiratory rate 17 /min 17 /min [facility] Oxygen 97 % 97 % [place] saturation in Medical Arterial blood Center by Pulse oximetry Heart rate 75 /min 75 /min [facility] Diastolic blood 65 mm[Hg] 65 mm[Hg] [facility] Systolic blood 139 mm[Hg] 139 mm[Hg] [facility] Body weight 104.132151 kg 104.360624 kg [facility] [place] Body temperature 36.830769 Kaylie 36.387130 Kay[facility] Respiratory rate 17 /min 17 /min [facility] Oxygen 92 % 92 % [place] saturation in Medical Arterial blood Center by Pulse oximetry Heart rate 88 /min 88 /min [facility] Body height 177.501681 cm 177.121588 cm [facility] Diastolic blood 74 mm[Hg] 74 mm[Hg] [facility] pressure [facility] Center Systolic blood 126 mm[Hg] 126 mm[Hg] [facility] Body mass index 33.0 kg/m2 33.0 kg/m2 [facility] (BMI) [Ratio] Medical Center Body temperature 37.837333 Kaylie 37.323279 Kay[facility] Respiratory rate 18 /min 18 /min [facility] Oxygen 96 % 96 % [place] saturation in Medical Arterial blood Center by Pulse oximetry Heart rate 93 /min 93 /min [facility] Diastolic blood 78 mm[Hg] 78 mm[Hg] [facility] Systolic blood 138 mm[Hg] 138 mm[Hg] [facility] Body temperature 36.732083 Kaylie 36.154900 Kay[facility] Respiratory rate 18 /min 18 /min [facility] Oxygen 97 % 97 % [place] saturation in Medical Arterial blood Center by Pulse oximetry Heart rate 89 /min 89 /min [facility] Diastolic blood 86 mm[Hg] 86 mm[Hg] [facility] [place] Systolic blood 142 mm[Hg] 142 mm[Hg] [facility] Body temperature 36.912388 Kaylie 36.756291 Kaylie [facility] Respiratory rate 18 /min 18 /min [facility] Oxygen 98 % 98 % [place] saturation in Medical Arterial blood Center by Pulse oximetry Heart rate 75 /min 75 /min [facility] Diastolic blood 65 mm[Hg] 65 mm[Hg] [facility] Systolic blood 131 mm[Hg] 131 mm[Hg] [facility] Body temperature 36.549761 Kaylie 36.282298 Kaylie [facility] Respiratory rate 17 /min 17 /min [facility] Oxygen 97 % 97 % [place] saturation in Medical Arterial blood Center by Pulse oximetry Heart rate 81 /min 81 /min [facility] Diastolic blood 73 mm[Hg] 73 mm[Hg] [facility] Systolic blood 139 mm[Hg] 139 mm[Hg] [facility] Body temperature 36.906883 Kaylie 36.872725 Kaylie [facility] Respiratory rate 18 /min 18 /min [facility] Oxygen 98 % 98 % [place] saturation in Medical Arterial blood Center by Pulse oximetry Heart rate 88 /min 88 /min [facility] Diastolic blood 72 mm[Hg] 72 mm[Hg] [facility] pressure [facility] Center Systolic blood 148 mm[Hg] 148 mm[Hg] [facility] [place] Body temperature 36.284593 Kaylie 36.475166 Kay[facility] Respiratory rate 17 /min 17 /min [facility] Oxygen 95 % 95 % [place] saturation in Medical Arterial blood Center by Pulse oximetry Heart rate 84 /min 84 /min [facility] Diastolic blood 83 mm[Hg] 83 mm[Hg] [facility] pressure [facility] [place] Systolic blood 138 mm[Hg] 138 mm[Hg] [facility] [place] Body temperature 37.739025 Kaylie 37.962680 Kaylie [facility] Respiratory rate 18 /min 18 /min [facility] Oxygen 95 % 95 % [place] saturation in Medical Arterial blood Center by Pulse oximetry Heart rate 88 /min 88 /min [facility] Diastolic blood 78 mm[Hg] 78 mm[Hg] [facility] [place] Systolic blood 143 mm[Hg] 143 mm[Hg] [facility] [place] Body temperature 36.232916 Kaylie 36.330317 Kay[facility] Respiratory rate 18 /min 18 /min [facility] Oxygen 95 % 95 % [place] saturation in Medical Arterial blood Center by Pulse oximetry Heart rate 87 /min 87 /min [facility] Diastolic blood 98 mm[Hg] 98 mm[Hg] [facility] [place] Systolic blood 122 mm[Hg] 122 mm[Hg] [facility] [place] Body temperature 36.004604 Kaylie 36.620267 Kay[facility] Respiratory rate 16 /min 16 /min [facility] Oxygen 95 % 95 % [place] saturation in Medical Arterial blood Center by Pulse oximetry Heart rate 68 /min 68 /min [facility] Diastolic blood 60 mm[Hg] 60 mm[Hg] [facility] Systolic blood 118 mm[Hg] 118 mm[Hg] [facility] Body temperature 37.566628 Kaylie 37.989069 [facility] Respiratory rate 20 /min 20 /min [facility] Oxygen 97 % 97 % [place] saturation in Medical Arterial blood Center by Pulse oximetry Heart rate 96 /min 96 /min [facility] Diastolic blood 95 mm[Hg] 95 mm[Hg] [facility] pressure [facility] Center Systolic blood 167 mm[Hg] 167 mm[Hg] [facility] Body temperature 36.235342 Kaylie 36.858593 Kay[facility] Respiratory rate 20 /min 20 /min [facility] Oxygen 96 % 96 % [place] saturation in Medical Arterial blood Center by Pulse oximetry Heart rate 86 /min 86 /min [facility] Diastolic blood 99 mm[Hg] 99 mm[Hg] [facility] pressure [facility] Center Systolic blood 168 mm[Hg] 168 mm[Hg] [facility] Body weight 109.251772 kg 109.391125 kg [facility] Body temperature 36.757969 Kaylie 36.967265 Kay[facility] Respiratory rate 20 /min 20 /min [facility] Oxygen 97 % 97 % [place] saturation in Medical Arterial blood Center by Pulse oximetry Heart rate 88 /min 88 /min [facility] Body height 175.104965 cm 175.971153 cm [facility] Diastolic blood 104 mm[Hg] 104 mm[Hg] [facility] pressure [facility] Center Systolic blood 165 mm[Hg] 165 mm[Hg] [facility] Body mass index 35.5 kg/m2 35.5 kg/m2 [facility] (BMI) [Ratio] Medical Center Body temperature 36.270521 Kaylie 36.672727 Kay[facility] Respiratory rate 20 /min 20 /min [facility] Oxygen 94 % 94 % [place] saturation in Medical Arterial blood Center by Pulse oximetry Heart rate 89 /min 89 /min [facility] Diastolic blood 81 mm[Hg] 81 mm[Hg] [facility] pressure [facility] Center Systolic blood 137 mm[Hg] 137 mm[Hg] [facility] Body temperature 36.869410 Kaylie 36.343749 [facility] Respiratory rate 17 /min 17 /min [facility] Oxygen 98 % 98 % [place] saturation in Medical Arterial blood Center by Pulse oximetry Heart rate 74 /min 74 /min [facility] Diastolic blood 73 mm[Hg] 73 mm[Hg] [facility] pressure [facility] Center Systolic blood 135 mm[Hg] 135 mm[Hg] [facility] Body temperature 37.316289 Kaylie 37.143775 [facility] Respiratory rate 18 /min 18 /min [facility] Oxygen 99 % 99 % [place] saturation in Medical Arterial blood Center by Pulse oximetry Heart rate 93 /min 93 /min [facility] Diastolic blood 77 mm[Hg] 77 mm[Hg] [facility] Systolic blood 141 mm[Hg] 141 mm[Hg] [facility] Body temperature 37.207787 Kaylie 37.424450 [facility] Respiratory rate 18 /min 18 /min [facility] Oxygen 99 % 99 % [place] saturation in Medical Arterial blood Center by Pulse oximetry Heart rate 73 /min 73 /min [facility] Diastolic blood 85 mm[Hg] 85 mm[Hg] [facility] [place] Systolic blood 128 mm[Hg] 128 mm[Hg] [facility] Body temperature 36.769779 Kaylie 36.938462 [facility] Respiratory rate 17 /min 17 /min [facility] Oxygen 99 % 99 % [place] saturation in Medical Arterial blood Center by Pulse oximetry Heart rate 85 /min 85 /min [facility] Diastolic blood 78 mm[Hg] 78 mm[Hg] [facility] pressure [facility] Center Systolic blood 132 mm[Hg] 132 mm[Hg] [facility] [place] Body temperature 36.806130 Kaylie 36.791130 [facility] Respiratory rate 18 /min 18 /min [facility] Oxygen 98 % 98 % [place] saturation in Medical Arterial blood Center by Pulse oximetry Heart rate 82 /min 82 /min [facility] Diastolic blood 83 mm[Hg] 83 mm[Hg] [facility] Systolic blood 125 mm[Hg] 125 mm[Hg] [facility] [place] Body temperature 37.787004 Kaylie 37.448179 [facility] Respiratory rate 18 /min 18 /min [facility] Oxygen 97 % 97 % [place] saturation in Medical Arterial blood Center by Pulse oximetry Heart rate 101 /min 101 /min [facility] Diastolic blood 77 mm[Hg] 77 mm[Hg] [facility] pressure [facility] Center Systolic blood 137 mm[Hg] 137 mm[Hg] [facility] Heart rate 88 /min 88 /min [facility] Diastolic blood 78 mm[Hg] 78 mm[Hg] [facility] pressure [facility] Center Systolic blood 144 mm[Hg] 144 mm[Hg] [facility] Body temperature 36.919788 Kaylie 36.310664 [facility] Respiratory rate 18 /min 18 /min [facility] Oxygen 97 % 97 % [place] saturation in Medical Arterial blood Center by Pulse oximetry Body temperature 37.658278 Kaylie 37.939289 [facility] Respiratory rate 18 /min 18 /min [facility] Oxygen 95 % 95 % [place] saturation in Medical Arterial blood Center by Pulse oximetry Heart rate 90 /min 90 /min [facility] Diastolic blood 92 mm[Hg] 92 mm[Hg] [facility] Systolic blood 153 mm[Hg] 153 mm[Hg] [facility] [place] Body temperature 37.365153 Kaylie 37.237095 [facility] Respiratory rate 18 /min 18 /min [facility] Oxygen 95 % 95 % [place] saturation in Medical Arterial blood Center by Pulse oximetry Heart rate 96 /min 96 /min [facility] Diastolic blood 75 mm[Hg] 75 mm[Hg] [facility] pressure Medical Center Systolic blood 127 mm[Hg] 127 mm[Hg] [facility] Body temperature 36.301163 Kaylie 36.488109 [facility] Respiratory rate 18 /min 18 /min [facility] Oxygen 96 % 96 % [place] saturation in Medical Arterial blood Center by Pulse oximetry Heart rate 96 /min 96 /min [facility] Diastolic blood 98 mm[Hg] 98 mm[Hg] [facility] pressure Medical Center Systolic blood 151 mm[Hg] 151 mm[Hg] [facility] Body temperature 36.419530 Kaylie 36.653285 [facility] Respiratory rate 17 /min 17 /min [facility] Oxygen 96 % 96 % [place] saturation in Medical Arterial blood Center by Pulse oximetry Heart rate 94 /min 94 /min [facility] Diastolic blood 74 mm[Hg] 74 mm[Hg] [facility] pressure Medical Center Systolic blood 138 mm[Hg] 138 mm[Hg] [facility] Respiratory rate 16 /min 16 /min [facility] Oxygen 98 % 98 % [place] saturation in Medical Arterial blood Center by Pulse oximetry Heart rate 91 /min 91 /min [facility] Diastolic blood 70 mm[Hg] 70 mm[Hg] [facility] pressure Medical Center Systolic blood 130 mm[Hg] 130 mm[Hg] [facility] Body temperature 36.033310 Kaylie 36.274787 [facility] Respiratory rate 16 /min 16 /min [facility] Oxygen 97 % 97 % [place] saturation in Medical Arterial blood Center by Pulse oximetry Heart rate 91 /min 91 /min [facility] Diastolic blood 61 mm[Hg] 61 mm[Hg] [facility] Systolic blood 109 mm[Hg] 109 mm[Hg] [facility] Body temperature 36.981519 Kaylie 36.081820 [facility] Respiratory rate 17 /min 17 /min [facility] Oxygen 95 % 95 % [place] saturation in Medical Arterial blood Center by Pulse oximetry Heart rate 96 /min 96 /min [facility] Diastolic blood 50 mm[Hg] 50 mm[Hg] [facility] Systolic blood 110 mm[Hg] 110 mm[Hg] [facility] Body temperature 36.705445 Kaylie 36.538403 [facility] Respiratory rate 18 /min 18 /min [facility] Oxygen 97 % 97 % [place] saturation in Medical Arterial blood Center by Pulse oximetry Heart rate 82 /min 82 /min [facility] Diastolic blood 70 mm[Hg] 70 mm[Hg] [facility] pressure Medical Center Systolic blood 120 mm[Hg] 120 mm[Hg] [facility] Body temperature 36.144467 Kaylie 36.278184 [facility] Respiratory rate 17 /min 17 /min [facility] Oxygen 98 % 98 % [place] saturation in Medical Arterial blood Center by Pulse oximetry Heart rate 76 /min 76 /min [facility] Diastolic blood 67 mm[Hg] 67 mm[Hg] [facility] Systolic blood 154 mm[Hg] 154 mm[Hg] [facility] Body temperature 36.009586 Kaylie 36.361911 [facility] Respiratory rate 18 /min 18 /min [facility] Heart rate 90 /min 90 /min [facility] Diastolic blood 71 mm[Hg] 71 mm[Hg] [facility] Systolic blood 140 mm[Hg] 140 mm[Hg] [facility] Body temperature 36.836177 Kaylie 36.507048 [facility] Respiratory rate 17 /min 17 /min [facility] Oxygen 95 % 95 % [place] saturation in Medical Arterial blood Center by Pulse oximetry Heart rate 90 /min 90 /min [facility] Diastolic blood 77 mm[Hg] 77 mm[Hg] [facility] [place] Systolic blood 137 mm[Hg] 137 mm[Hg] [facility] Body temperature 36.438340 Kaylie 36.339863 [facility] Respiratory rate 18 /min 18 /min [facility] Oxygen 98 % 98 % [place] saturation in Medical Arterial blood Center by Pulse oximetry Heart rate 76 /min 76 /min [facility] Diastolic blood 80 mm[Hg] 80 mm[Hg] [facility] Systolic blood 124 mm[Hg] 124 mm[Hg] [facility] Body temperature 36.079208 Kaylie 36.535174 [facility] Respiratory rate 18 /min 18 /min [facility] Oxygen 99 % 99 % [place] saturation in Medical Arterial blood Center by Pulse oximetry Heart rate 90 /min 90 /min [facility] Diastolic blood 77 mm[Hg] 77 mm[Hg] [facility] Systolic blood 149 mm[Hg] 149 mm[Hg] [facility] Body temperature 36.790438 Kaylie 36.028816 [facility] Respiratory rate 19 /min 19 /min [facility] Oxygen 99 % 99 % [place] saturation in Medical Arterial blood Center by Pulse oximetry Heart rate 88 /min 88 /min [facility] Diastolic blood 66 mm[Hg] 66 mm[Hg] [facility] pressure Medical Center Systolic blood 154 mm[Hg] 154 mm[Hg] [facility] Body temperature 36.954552 Kaylie 36.295424 [facility] Respiratory rate 18 /min 18 /min [facility] Oxygen 96 % 96 % [place] saturation in Medical Arterial blood Center by Pulse oximetry Heart rate 93 /min 93 /min [facility] Diastolic blood 76 mm[Hg] 76 mm[Hg] [facility] Systolic blood 144 mm[Hg] 144 mm[Hg] [facility] [place] Body temperature 37.829587 Kaylie 37.005005 [facility] Respiratory rate 19 /min 19 /min [facility] Oxygen 95 % 95 % [place] saturation in Medical Arterial blood Center by Pulse oximetry Heart rate 90 /min 90 /min [facility] Diastolic blood 59 mm[Hg] 59 mm[Hg] [facility] Systolic blood 133 mm[Hg] 133 mm[Hg] [facility] Body temperature 36.914771 Kaylie 36.792104 [facility] Respiratory rate 18 /min 18 /min [facility] Oxygen 97 % 97 % [place] saturation in Medical Arterial blood Center by Pulse oximetry Heart rate 88 /min 88 /min [facility] Diastolic blood 67 mm[Hg] 67 mm[Hg] [facility] Systolic blood 148 mm[Hg] 148 mm[Hg] [facility] Body temperature 36.616916 Kaylie 36.585744 [facility] Respiratory rate 20 /min 20 /min [facility] Oxygen 94 % 94 % [place] saturation in Medical Arterial blood Center by Pulse oximetry Heart rate 88 /min 88 /min [facility] Diastolic blood 66 mm[Hg] 66 mm[Hg] [facility] pressure Medical Center Systolic blood 135 mm[Hg] 135 mm[Hg] [facility] Body temperature 37.044752 Kaylie 37.061008 [facility] Respiratory rate 20 /min 20 /min [facility] Oxygen 94 % 94 % [place] saturation in Medical Arterial blood Center by Pulse oximetry Heart rate 84 /min 84 /min [facility] Diastolic blood 69 mm[Hg] 69 mm[Hg] [facility] Systolic blood 130 mm[Hg] 130 mm[Hg] [facility] Body weight 90.836387 kg 90.222672 kg [facility] Measured Medical [place] Body height 175.189321 cm 175.764917 cm [facility] Body mass index 29.5 kg/m2 29.5 kg/m2 [facility] (BMI) [Ratio] Medical Center Body temperature 36.693369 Kaylie 36.809563 [facility] Respiratory rate 17 /min 17 /min [facility] Oxygen 98 % 98 % [place] saturation in Medical Arterial blood Center by Pulse oximetry Heart rate 71 /min 71 /min [facility] Diastolic blood 76 mm[Hg] 76 mm[Hg] [facility] Systolic blood 136 mm[Hg] 136 mm[Hg] [facility] Body temperature 36.059016 Kaylie 36.880974 [facility] Respiratory rate 18 /min 18 /min [facility] Oxygen 97 % 97 % [place] saturation in Medical Arterial blood Center by Pulse oximetry Heart rate 76 /min 76 /min [facility] Diastolic blood 76 mm[Hg] 76 mm[Hg] [facility] Systolic blood 124 mm[Hg] 124 mm[Hg] [facility] Body temperature 36.908564 Kaylie 36.184050 [facility] Respiratory rate 19 /min 19 /min [facility] Oxygen 97 % 97 % [place] saturation in Medical Arterial blood Center by Pulse oximetry Heart rate 97 /min 97 /min [facility] Diastolic blood 73 mm[Hg] 73 mm[Hg] [facility] Systolic blood 118 mm[Hg] 118 mm[Hg] [facility] Body weight 104.017517 kg 104.753584 kg [facility] [place] Body temperature 36.561545 Kaylie 36.869364 [facility] Respiratory rate 17 /min 17 /min [facility] Oxygen 96 % 96 % [place] saturation in Medical Arterial blood Center by Pulse oximetry Heart rate 95 /min 95 /min [facility] Body height 177.961924 cm 177.634839 cm [facility] Diastolic blood 81 mm[Hg] 81 mm[Hg] [facility] pressure Medical Center Systolic blood 150 mm[Hg] 150 mm[Hg] [facility] Body mass index 33.0 kg/m2 33.0 kg/m2 [facility] (BMI) [Ratio] Medical Center Body temperature 36.086554 Kaylie 36.224999 [facility] Respiratory rate 18 /min 18 /min [facility] Oxygen 97 % 97 % [place] saturation in Medical Arterial blood Center by Pulse oximetry Heart rate 89 /min 89 /min [facility] Diastolic blood 75 mm[Hg] 75 mm[Hg] [facility] pressure Medical Center Systolic blood 144 mm[Hg] 144 mm[Hg] [facility] Body temperature 36.415154 Kaylie 36.968392 [facility] Respiratory rate 18 /min 18 /min [facility] Oxygen 97 % 97 % [place] saturation in Medical Arterial blood Center by Pulse oximetry Heart rate 71 /min 71 /min [facility] Diastolic blood 96 mm[Hg] 96 mm[Hg] [facility] pressure [facility] Center Systolic blood 136 mm[Hg] 136 mm[Hg] [facility] Heart rate 84 /min 84 /min [facility] Diastolic blood 83 mm[Hg] 83 mm[Hg] [facility] Systolic blood 132 mm[Hg] 132 mm[Hg] [facility] Respiratory rate 18 /min 18 /min [facility] Oxygen 97 % 97 % [place] saturation in Medical Arterial blood Center by Pulse oximetry Body temperature 36.068404 Kaylie 36.617260 [facility] Respiratory rate 18 /min 18 /min [facility] Oxygen 97 % 97 % [place] saturation in Medical Arterial blood Center by Pulse oximetry Heart rate 82 /min 82 /min [facility] Diastolic blood 82 mm[Hg] 82 mm[Hg] [facility] pressure Medical Center Systolic blood 138 mm[Hg] 138 mm[Hg] [facility] Body temperature 36.580421 Kaylie 36.927764 [facility] Respiratory rate 18 /min 18 /min [facility] Oxygen 96 % 96 % [facility] saturation in Medical Arterial blood Center by Pulse oximetry Heart rate 95 /min 95 /min [facility] Diastolic blood 84 mm[Hg] 84 mm[Hg] [facility] pressure Medical Center Systolic blood 155 mm[Hg] 155 mm[Hg] [facility] Body temperature 36.279601 Kaylie 36.042785 Kay[facility] Respiratory rate 21 /min 21 /min [facility] Oxygen 98 % 98 % [facility] saturation in Medical Arterial blood Center by Pulse oximetry Heart rate 97 /min 97 /min [facility] Diastolic blood 79 mm[Hg] 79 mm[Hg] [facility] pressure Medical Center Systolic blood 162 mm[Hg] 162 mm[Hg] [facility] Body weight 90.232537 kg 90.595118 kg [facility] Body temperature 36.968730 Kaylie 36.844203 [facility] Respiratory rate 18 /min 18 /min [facility] Oxygen 96 % 96 % [facility] saturation in Medical Arterial blood Center by Pulse oximetry Heart rate 92 /min 92 /min [facility] Body height 177.109033 cm 177.962487 cm [facility] Diastolic blood 85 mm[Hg] 85 mm[Hg] [facility] pressure [facility] Center Systolic blood 141 mm[Hg] 141 mm[Hg] [facility] Body mass index 28.6 kg/m2 28.6 kg/m2 [facility] (BMI) [Ratio] Medical Center Body temperature 36.959056 Kaylie 36.569418 [facility] Respiratory rate 20 /min 20 /min [facility] Oxygen 94 % 94 % [facility] saturation in Medical Arterial blood Center by Pulse oximetry Heart rate 96 /min 96 /min [facility] Diastolic blood 85 mm[Hg] 85 mm[Hg] [facility] pressure [facility] Center Systolic blood 125 mm[Hg] 125 mm[Hg] [facility] Body temperature 36.594323 Kaylie 36.004426 [facility] Respiratory rate 19 /min 19 /min [facility] Oxygen 93 % 93 % [place] saturation in Medical Arterial blood Center by Pulse oximetry Heart rate 91 /min 91 /min [facility] Diastolic blood 74 mm[Hg] 74 mm[Hg] [facility] pressure [facility] Center Systolic blood 132 mm[Hg] 132 mm[Hg] [facility] Body weight 95.359726 kg 95.355330 kg [facility] Body temperature 36.444713 Kaylie 36.743693 Kay[facility] Respiratory rate 17 /min 17 /min [facility] Oxygen 95 % 95 % [facility] saturation in Medical Arterial blood Center by Pulse oximetry Heart rate 86 /min 86 /min [facility] Body height 177.676379 cm 177.494941 cm [facility] Diastolic blood 72 mm[Hg] 72 mm[Hg] [facility] Systolic blood 123 mm[Hg] 123 mm[Hg] [facility] Body mass index 30.1 kg/m2 30.1 kg/m2 [facility] (BMI) [Ratio] Medical Center Body temperature 36.664117 Kaylie 36.989881 Kay[facility] Respiratory rate 16 /min 16 /min [facility] Oxygen 93 % 93 % [place] saturation in Medical Arterial blood Center by Pulse oximetry Heart rate 103 /min 103 /min [facility] Diastolic blood 67 mm[Hg] 67 mm[Hg] [facility] pressure [facility] Center Systolic blood 123 mm[Hg] 123 mm[Hg] [facility] Body temperature 36.451875 Kaylie 36.475273 Kay[facility] Respiratory rate 18 /min 18 /min [facility] Oxygen 98 % 98 % [place] saturation in Medical Arterial blood Center by Pulse oximetry Heart rate 76 /min 76 /min [facility] Diastolic blood 77 mm[Hg] 77 mm[Hg] [facility] Systolic blood 120 mm[Hg] 120 mm[Hg] [facility] Body temperature 36.553235 Kaylie 36.169840 [facility] Respiratory rate 18 /min 18 /min [facility] Oxygen 98 % 98 % [place] saturation in Medical Arterial blood Center by Pulse oximetry Heart rate 76 /min 76 /min [facility] Diastolic blood 76 mm[Hg] 76 mm[Hg] [facility] pressure [facility] Center Systolic blood 122 mm[Hg] 122 mm[Hg] [facility] Body temperature 35.019595 Kaylie 35.619240 [facility] Respiratory rate 17 /min 17 /min [facility] Oxygen 97 % 97 % [place] saturation in Medical Arterial blood Center by Pulse oximetry Heart rate 86 /min 86 /min [facility] Diastolic blood 69 mm[Hg] 69 mm[Hg] [facility] pressure [facility] Center Systolic blood 121 mm[Hg] 121 mm[Hg] [facility] Body temperature 37.806531 Kaylie 37.571237 Kaylei [facility] Respiratory rate 16 /min 16 /min [facility] Oxygen 98 % 98 % [place] saturation in Medical Arterial blood Center by Pulse oximetry Heart rate 80 /min 80 /min [facility] Diastolic blood 65 mm[Hg] 65 mm[Hg] [facility] pressure [facility] Center Systolic blood 116 mm[Hg] 116 mm[Hg] [facility] Respiratory rate 16 /min 16 /min [facility] Oxygen 97 % 97 % [place] saturation in Medical Arterial blood Center by Pulse oximetry Heart rate 84 /min 84 /min [facility] Diastolic blood 69 mm[Hg] 69 mm[Hg] [facility] pressure [facility] Center Systolic blood 115 mm[Hg] 115 mm[Hg] [facility] Body temperature 37.928945 Kaylie 37.929340 Kay[facility] Oxygen 98 % 98 % [place] saturation in Medical Arterial blood Center by Pulse oximetry Heart rate 90 /min 90 /min [facility] Diastolic blood 72 mm[Hg] 72 mm[Hg] [facility] pressure [facility] Center Systolic blood 106 mm[Hg] 106 mm[Hg] [facility] Body temperature 36.282922 Kaylie 36.462956 Kay[facility] Respiratory rate 19 /min 19 /min [facility] Oxygen 98 % 98 % [place] saturation in Medical Arterial blood Center by Pulse oximetry Heart rate 86 /min 86 /min [facility] Diastolic blood 55 mm[Hg] 55 mm[Hg] [facility] pressure [facility] Center Systolic blood 91 mm[Hg] 91 mm[Hg] [facility] Body temperature 37.757602 Kaylie 37.656879 Kay[facility] Respiratory rate 18 /min 18 /min [facility] Oxygen 95 % 95 % [place] saturation in Medical Arterial blood Center by Pulse oximetry Heart rate 95 /min 95 /min [facility] Diastolic blood 79 mm[Hg] 79 mm[Hg] [facility] pressure [facility] Center Systolic blood 122 mm[Hg] 122 mm[Hg] [facility] Body weight 105.822310 kg 105.897424 kg [facility] Body temperature 37.061812 Kaylie 37.032679 Kay[facility] Respiratory rate 20 /min 20 /min [facility] Oxygen 94 % 94 % [place] saturation in Medical Arterial blood Center by Pulse oximetry Heart rate 83 /min 83 /min [facility] Body height 175.489107 cm 175.023580 cm [facility] Diastolic blood 85 mm[Hg] 85 mm[Hg] [facility] Systolic blood 134 mm[Hg] 134 mm[Hg] [facility] [place] Body mass index 34.2 kg/m2 34.2 kg/m2 [facility] (BMI) [Ratio] Medical Center Body weight 81.733286 kg 81.970725 kg [facility] Measured [facility] Body temperature 36.483313 Kaylie 36.726304 [facility] Respiratory rate 18 /min 18 /min [facility] Oxygen 96 % 96 % [place] saturation in Medical Arterial blood Center by Pulse oximetry Heart rate 86 /min 86 /min [facility] Body height 172.255191 cm 172.263261 cm [facility] Diastolic blood 85 mm[Hg] 85 mm[Hg] [facility] pressure [facility] Center Systolic blood 138 mm[Hg] 138 mm[Hg] [facility] Body mass index 27.3 kg/m2 27.3 kg/m2 [facility] (BMI) [Ratio] Medical Center Body temperature 36.458391 Kaylie 36.812538 [facility] Respiratory rate 17 /min 17 /min [facility] Oxygen 98 % 98 % [place] saturation in Medical Arterial blood Center by Pulse oximetry Heart rate 81 /min 81 /min [facility] Diastolic blood 71 mm[Hg] 71 mm[Hg] [facility] Center Systolic blood 128 mm[Hg] 128 mm[Hg] [facility] Body temperature 36.198624 Kaylie 36.238077 Kay[facility] Respiratory rate 17 /min 17 /min [facility] Oxygen 95 % 95 % [place] saturation in Medical Arterial blood Center by Pulse oximetry Heart rate 101 /min 101 /min [facility] Diastolic blood 78 mm[Hg] 78 mm[Hg] [facility] Systolic blood 128 mm[Hg] 128 mm[Hg] [facility] Body temperature 41.212628 Kaylie 41.875840 [facility] Respiratory rate 18 /min 18 /min [facility] Oxygen 92 % 92 % [place] saturation in Medical Arterial blood Center by Pulse oximetry Heart rate 117 /min 117 /min [facility] Diastolic blood 77 mm[Hg] 77 mm[Hg] [facility] Systolic blood 130 mm[Hg] 130 mm[Hg] [facility] Body temperature 37.543148 Kaylie 37.393292 Kay[facility] Respiratory rate 18 /min 18 /min [facility] Oxygen 98 % 98 % [place] saturation in Medical Arterial blood Center by Pulse oximetry Heart rate 89 /min 89 /min [facility] Diastolic blood 85 mm[Hg] 85 mm[Hg] [facility] Center Systolic blood 142 mm[Hg] 142 mm[Hg] [facility] Body weight 110.213377 kg 110.910596 kg [facility] Body temperature 36.316701 Kaylie 36.792252 Kay[facility] Respiratory rate 18 /min 18 /min [facility] Oxygen 98 % 98 % [place] saturation in Medical Arterial blood Center by Pulse oximetry Heart rate 88 /min 88 /min [facility] Body height 182.392057 cm 182.205418 cm [facility] Diastolic blood 98 mm[Hg] 98 mm[Hg] [facility] pressure [facility] Center Systolic blood 138 mm[Hg] 138 mm[Hg] [facility] [facility] Body mass index 32.8 kg/m2 32.8 kg/m2 [facility] (BMI) [Ratio] [facility] Center Body temperature 36.899233 Kaylie 36.894628 [facility] Respiratory rate 17 /min 17 /min [facility] Oxygen 95 % 95 % [place] saturation in Medical Arterial blood Center by Pulse oximetry Heart rate 96 /min 96 /min [facility] Diastolic blood 74 mm[Hg] 74 mm[Hg] [facility] Systolic blood 126 mm[Hg] 126 mm[Hg] [facility] Body temperature 36.641515 Kaylie 36.317909 [facility] Respiratory rate 18 /min 18 /min [facility] Oxygen 100 % 100 % [place] saturation in Medical Arterial blood Center by Pulse oximetry Heart rate 85 /min 85 /min [facility] Diastolic blood 80 mm[Hg] 80 mm[Hg] [facility] [place] Systolic blood 146 mm[Hg] 146 mm[Hg] [facility] Body temperature 36.790791 Kaylie 36.445261 [facility] Respiratory rate 18 /min 18 /min [facility] Oxygen 98 % 98 % [place] saturation in Medical Arterial blood Center by Pulse oximetry Heart rate 80 /min 80 /min [facility] Diastolic blood 60 mm[Hg] 60 mm[Hg] [facility] Systolic blood 96 mm[Hg] 96 mm[Hg] [facility] Body temperature 36.181586 Kaylie 36.369933 [facility] Respiratory rate 18 /min 18 /min [facility] Oxygen 98 % 98 % [place] saturation in Medical Arterial blood Center by Pulse oximetry Heart rate 83 /min 83 /min [facility] Diastolic blood 68 mm[Hg] 68 mm[Hg] [facility] Systolic blood 128 mm[Hg] 128 mm[Hg] [facility] Center Body mass index 29.8 kg/m2 29.8 kg/m2 [facility] (BMI) [Ratio] Medical Center Body weight 100.241436 kg 100.783371 kg [facility] Body temperature 36.345889 Kaylie 36.532113 [facility] Respiratory rate 18 /min 18 /min [facility] Oxygen 98 % 98 % [place] saturation in Medical Arterial blood Center by Pulse oximetry Heart rate 84 /min 84 /min [facility] Body height 182.876829 cm 182.244118 cm [facility] [place] Diastolic blood 88 mm[Hg] 88 mm[Hg] [facility] Systolic blood 148 mm[Hg] 148 mm[Hg] [facility] Body temperature 36.840741 Kaylie 36.379516 [facility] Respiratory rate 17 /min 17 /min [facility] Oxygen 99 % 99 % [place] saturation in Medical Arterial blood Center by Pulse oximetry Heart rate 80 /min 80 /min [facility] Diastolic blood 79 mm[Hg] 79 mm[Hg] [facility] Systolic blood 126 mm[Hg] 126 mm[Hg] [facility] Body temperature 36.186882 Kaylie 36.968767 [facility] Respiratory rate 17 /min 17 /min [facility] Oxygen 99 % 99 % [place] saturation in Medical Arterial blood Center by Pulse oximetry Heart rate 85 /min 85 /min [facility] Diastolic blood 74 mm[Hg] 74 mm[Hg] [facility] Center Systolic blood 136 mm[Hg] 136 mm[Hg] [facility] Body temperature 36.739380 Kaylie 36.042523 [facility] Respiratory rate 18 /min 18 /min [facility] Oxygen 98 % 98 % [place] saturation in Medical Arterial blood Center by Pulse oximetry Heart rate 97 /min 97 /min [facility] Diastolic blood 70 mm[Hg] 70 mm[Hg] [facility] Systolic blood 126 mm[Hg] 126 mm[Hg] [facility] Body temperature 36.880578 Kaylie 36.251797 [facility] Respiratory rate 19 /min 19 /min [facility] Oxygen 97 % 97 % [facility] saturation in Medical Arterial blood Center by Pulse oximetry Heart rate 79 /min 79 /min [facility] Diastolic blood 78 mm[Hg] 78 mm[Hg] [facility] pressure Medical Center Systolic blood 135 mm[Hg] 135 mm[Hg] [facility] Respiratory rate 18 /min 18 /min [facility] Oxygen 93 % 93 % [facility] saturation in Medical Arterial blood Center by Pulse oximetry Heart rate 89 /min 89 /min [facility] Body height 177.637966 cm 177.077664 cm [facility] Diastolic blood 75 mm[Hg] 75 mm[Hg] [facility] Systolic blood 104 mm[Hg] 104 mm[Hg] [facility] Center Body mass index 37.9 kg/m2 37.9 kg/m2 [facility] (BMI) [Ratio] Medical Center Body weight 120.169559 kg 120.452007 kg [facility] Body temperature 36.990110 [place] 36.494992 [facility] Body temperature 36.327855 Kaylie 36.363363 [facility] Respiratory rate 17 /min 17 /min [facility] Oxygen 95 % 95 % [place] saturation in Medical Arterial blood Center by Pulse oximetry Heart rate 94 /min 94 /min [facility] Diastolic blood 62 mm[Hg] 62 mm[Hg] [facility] Systolic blood 115 mm[Hg] 115 mm[Hg] [facility] Body temperature 36.899265 Kaylie 36.475954 [facility] Respiratory rate 18 /min 18 /min [facility] Oxygen 96 % 96 % [place] saturation in Medical Arterial blood Center by Pulse oximetry Heart rate 91 /min 91 /min [facility] Diastolic blood 77 mm[Hg] 77 mm[Hg] [facility] Systolic blood 131 mm[Hg] 131 mm[Hg] [facility] Body temperature 37.071552 Kaylie 37.726563 [facility] Respiratory rate 19 /min 19 /min [facility] Oxygen 97 % 97 % [place] saturation in Medical Arterial blood Center by Pulse oximetry Heart rate 105 /min 105 /min [facility] Diastolic blood 74 mm[Hg] 74 mm[Hg] [facility] Systolic blood 122 mm[Hg] 122 mm[Hg] [facility] Body temperature 37.843621 Kaylie 37.863645 [facility] Respiratory rate 20 /min 20 /min [facility] Oxygen 93 % 93 % [place] saturation in Medical Arterial blood Center by Pulse oximetry Heart rate 117 /min 117 /min [facility] Diastolic blood 58 mm[Hg] 58 mm[Hg] [facility] pressure Medical Center Systolic blood 108 mm[Hg] 108 mm[Hg] [facility] Body temperature 36.946885 Kaylie 36.615979 [facility] Oxygen 90 % 90 % [place] saturation in Medical Arterial blood Center by Pulse oximetry Heart rate 112 /min 112 /min [facility] Diastolic blood 54 mm[Hg] 54 mm[Hg] [facility] [place] Systolic blood 117 mm[Hg] 117 mm[Hg] [facility] Body weight 117.348658 kg 117.806992 kg [facility] Body temperature 36.899922 Kaylie 36.067499 [facility] Respiratory rate 18 /min 18 /min [facility] Oxygen 99 % 99 % [place] saturation in Medical Arterial blood Center by Pulse oximetry Heart rate 89 /min 89 /min [facility] Body height 182.009619 cm 182.734966 cm [facility] Diastolic blood 84 mm[Hg] 84 mm[Hg] [facility] Systolic blood 142 mm[Hg] 142 mm[Hg] [facility] Center Body mass index 35.2 kg/m2 35.2 kg/m2 [facility] (BMI) [Ratio] Medical Center Body temperature 36.163631 Kaylie 36.413985 [facility] Respiratory rate 16 /min 16 /min [facility] Oxygen 98 % 98 % [place] saturation in Medical Arterial blood Center by Pulse oximetry Heart rate 79 /min 79 /min [facility] Diastolic blood 94 mm[Hg] 94 mm[Hg] [facility] pressure Medical Center Systolic blood 149 mm[Hg] 149 mm[Hg] [facility] [place] Body temperature 36.884620 Kaylie 36.089776 [facility] Respiratory rate 16 /min 16 /min [facility] Oxygen 95 % 95 % [place] saturation in Medical Arterial blood Center by Pulse oximetry Heart rate 83 /min 83 /min [facility] Diastolic blood 74 mm[Hg] 74 mm[Hg] [facility] Systolic blood 156 mm[Hg] 156 mm[Hg] [facility] [place] Body temperature 36.770762 Kaylie 36.979899 [facility] Respiratory rate 20 /min 20 /min [facility] Oxygen 96 % 96 % [place] saturation in Medical Arterial blood Center by Pulse oximetry Heart rate 85 /min 85 /min [facility] Diastolic blood 83 mm[Hg] 83 mm[Hg] [facility] Systolic blood 142 mm[Hg] 142 mm[Hg] [facility] [place] Body temperature 36.069240 Kaylie 36.037984 [facility] Respiratory rate 20 /min 20 /min [facility] Oxygen 97 % 97 % [place] saturation in Medical Arterial blood Center by Pulse oximetry Heart rate 107 /min 107 /min [facility] Diastolic blood 104 mm[Hg] 104 mm[Hg] [facility] Systolic blood 164 mm[Hg] 164 mm[Hg] [facility] [place] Body temperature 36.743548 Kaylie 36.953993 [facility] Respiratory rate 20 /min 20 /min [facility] Oxygen 97 % 97 % [place] saturation in Medical Arterial blood Center by Pulse oximetry Heart rate 90 /min 90 /min [facility] Diastolic blood 78 mm[Hg] 78 mm[Hg] [facility] Systolic blood 140 mm[Hg] 140 mm[Hg] [facility] [place] Body weight 99.917431 kg 99.203394 kg [facility] Body temperature 36.147815 Kaylie 36.954998 [facility] Respiratory rate 17 /min 17 /min [facility] Oxygen 95 % 95 % [place] saturation in Medical Arterial blood Center by Pulse oximetry Heart rate 92 /min 92 /min [facility] Body height 177.245793 cm 177.564926 cm [facility] Diastolic blood 78 mm[Hg] 78 mm[Hg] [facility] pressure Medical Center Systolic blood 138 mm[Hg] 138 mm[Hg] [facility] Center Body mass index 31.5 kg/m2 31.5 kg/m2 [facility] (BMI) [Ratio] Medical Center Body temperature 36.870557 Kaylie 36.319009 [facility] Respiratory rate 17 /min 17 /min [facility] Oxygen 98 % 98 % [place] saturation in Medical Arterial blood Center by Pulse oximetry Heart rate 75 /min 75 /min [facility] Diastolic blood 68 mm[Hg] 68 mm[Hg] [facility] pressure [facility] Center Systolic blood 129 mm[Hg] 129 mm[Hg] [facility] Body temperature 36.189512 Kaylie 36.651183 [facility] Respiratory rate 17 /min 17 /min [facility] Oxygen 99 % 99 % [place] saturation in Medical Arterial blood Center by Pulse oximetry Heart rate 81 /min 81 /min [facility] Diastolic blood 79 mm[Hg] 79 mm[Hg] [facility] Systolic blood 143 mm[Hg] 143 mm[Hg] [facility] Body temperature 36.982144 Kaylie 36.051899 [facility] Respiratory rate 17 /min 17 /min [facility] Oxygen 99 % 99 % [place] saturation in Medical Arterial blood Center by Pulse oximetry Heart rate 88 /min 88 /min [facility] Diastolic blood 76 mm[Hg] 76 mm[Hg] [facility] Systolic blood 145 mm[Hg] 145 mm[Hg] [facility] Body temperature 36.060131 Kaylie 36.256064 [facility] Respiratory rate 18 /min 18 /min [facility] Oxygen 98 % 98 % [place] saturation in Medical Arterial blood Center by Pulse oximetry Heart rate 76 /min 76 /min [facility] Diastolic blood 75 mm[Hg] 75 mm[Hg] [facility] pressure Medical Center Systolic blood 122 mm[Hg] 122 mm[Hg] [facility] Body temperature 37.476062 Kaylie 37.650470 [facility] Respiratory rate 18 /min 18 /min [facility] Oxygen 97 % 97 % [place] saturation in Medical Arterial blood Center by Pulse oximetry Heart rate 89 /min 89 /min [facility] Diastolic blood 78 mm[Hg] 78 mm[Hg] [facility] Systolic blood 146 mm[Hg] 146 mm[Hg] [facility] [place] Body temperature 36.083955 Kaylie 36.260877 [facility] Respiratory rate 18 /min 18 /min [facility] Oxygen 98 % 98 % [place] saturation in Medical Arterial blood Center by Pulse oximetry Heart rate 82 /min 82 /min [facility] Diastolic blood 80 mm[Hg] 80 mm[Hg] [facility] Systolic blood 134 mm[Hg] 134 mm[Hg] [facility] Body temperature 37.081959 Kaylie 37.541183 [facility] Respiratory rate 18 /min 18 /min [facility] Oxygen 99 % 99 % [place] saturation in Medical Arterial blood Center by Pulse oximetry Heart rate 86 /min 86 /min [facility] Diastolic blood 85 mm[Hg] 85 mm[Hg] [facility] Systolic blood 142 mm[Hg] 142 mm[Hg] [facility] [place] Body weight 119.202941 kg 119.832035 kg [facility] Measured [facility] Body temperature 36.653317 Kaylie 36.829784 [facility] Respiratory rate 18 /min 18 /min [facility] Oxygen 97 % 97 % [place] saturation in Medical Arterial blood Center by Pulse oximetry Heart rate 83 /min 83 /min [facility] Diastolic blood 69 mm[Hg] 69 mm[Hg] [facility] Systolic blood 115 mm[Hg] 115 mm[Hg] [facility] Body weight 120.620405 kg 120.903254 kg [facility] Body temperature 37.600229 Kaylie 37.769598 [facility] Respiratory rate 18 /min 18 /min [facility] Oxygen 98 % 98 % [place] saturation in Medical Arterial blood Center by Pulse oximetry Heart rate 88 /min 88 /min [facility] Body height 182.358277 cm 182.290509 cm [facility] Diastolic blood 88 mm[Hg] 88 mm[Hg] [facility] pressure Medical Center Systolic blood 148 mm[Hg] 148 mm[Hg] [facility] Body mass index 35.8 kg/m2 35.8 kg/m2 [facility] (BMI) [Ratio] Medical Center Body temperature 36.546511 Kaylie 36.370055 [facility] Respiratory rate 17 /min 17 /min [facility] Oxygen 97 % 97 % [place] saturation in Medical Arterial blood Center by Pulse oximetry Heart rate 75 /min 75 /min [facility] Diastolic blood 71 mm[Hg] 71 mm[Hg] [facility] Systolic blood 145 mm[Hg] 145 mm[Hg] [facility] Body temperature 36.716190 Kaylie 36.952524 [facility] Respiratory rate 19 /min 19 /min [facility] Oxygen 97 % 97 % [place] saturation in Medical Arterial blood Center by Pulse oximetry Heart rate 88 /min 88 /min [facility] Diastolic blood 76 mm[Hg] 76 mm[Hg] [facility] Systolic blood 150 mm[Hg] 150 mm[Hg] [facility] Body temperature 36.729254 Kaylie 36.315466 [facility] Respiratory rate 17 /min 17 /min [facility] Oxygen 98 % 98 % [place] saturation in Medical Arterial blood Center by Pulse oximetry Heart rate 71 /min 71 /min [facility] Diastolic blood 68 mm[Hg] 68 mm[Hg] [facility] Systolic blood 129 mm[Hg] 129 mm[Hg] [facility] Body temperature 36.951086 Kaylie 36.718205 [facility] Respiratory rate 17 /min 17 /min [facility] Oxygen 97 % 97 % [place] saturation in Medical Arterial blood Center by Pulse oximetry Heart rate 75 /min 75 /min [facility] Diastolic blood 62 mm[Hg] 62 mm[Hg] [facility] pressure Medical Center Systolic blood 133 mm[Hg] 133 mm[Hg] [facility] Body temperature 36.292705 Kaylie 36.745857 [facility] Respiratory rate 17 /min 17 /min [facility] Oxygen 99 % 99 % [place] saturation in Medical Arterial blood Center by Pulse oximetry Heart rate 80 /min 80 /min [facility] Diastolic blood 92 mm[Hg] 92 mm[Hg] [facility] Systolic blood 144 mm[Hg] 144 mm[Hg] [facility] Body temperature 36.462802 Kaylie 36.255475 [facility] Respiratory rate 18 /min 18 /min [facility] Oxygen 97 % 97 % [place] saturation in Medical Arterial blood Center by Pulse oximetry Heart rate 89 /min 89 /min [facility] Diastolic blood 88 mm[Hg] 88 mm[Hg] [facility] [place] Systolic blood 148 mm[Hg] 148 mm[Hg] [facility] Body temperature 36.571812 Kaylie 36.491258 [facility] Respiratory rate 17 /min 17 /min [facility] Oxygen 97 % 97 % [place] saturation in Medical Arterial blood Center by Pulse oximetry Heart rate 81 /min 81 /min [facility] Diastolic blood 79 mm[Hg] 79 mm[Hg] [facility] Systolic blood 133 mm[Hg] 133 mm[Hg] [facility] Body temperature 36.135510 Kaylie 36.961706 [facility] Respiratory rate 17 /min 17 /min [facility] Oxygen 98 % 98 % [place] saturation in Medical Arterial blood Center by Pulse oximetry Heart rate 87 /min 87 /min [facility] Diastolic blood 88 mm[Hg] 88 mm[Hg] [facility] Systolic blood 136 mm[Hg] 136 mm[Hg] [facility] [place] Body temperature 36.598668 Kaylie 36.109785 [facility] Respiratory rate 18 /min 18 /min [facility] Oxygen 97 % 97 % [place] saturation in Medical Arterial blood Center by Pulse oximetry Heart rate 95 /min 95 /min [facility] Diastolic blood 84 mm[Hg] 84 mm[Hg] [facility] pressure Medical Center Systolic blood 149 mm[Hg] 149 mm[Hg] [facility] Body temperature 36.825166 Kaylie 36.285802 [facility] Respiratory rate 17 /min 17 /min [facility] Oxygen 99 % 99 % [place] saturation in Medical Arterial blood Center by Pulse oximetry Heart rate 81 /min 81 /min [facility] Diastolic blood 76 mm[Hg] 76 mm[Hg] [facility] pressure Medical Center Systolic blood 124 mm[Hg] 124 mm[Hg] [facility] Body weight 110.114155 kg 110.543210 kg [facility] Body temperature 36.462448 Kaylie 36.327356 [facility] Respiratory rate 18 /min 18 /min [facility] Oxygen 98 % 98 % [place] saturation in Medical Arterial blood Center by Pulse oximetry Heart rate 78 /min 78 /min [facility] Body height 185.912789 cm 185.240080 cm [facility] Diastolic blood 78 mm[Hg] 78 mm[Hg] [facility] pressure Medical Center Systolic blood 138 mm[Hg] 138 mm[Hg] [facility] Body mass index 31.9 kg/m2 31.9 kg/m2 [facility] (BMI) [Ratio] Medical Center Body weight 113.447888 kg 113.743268 kg [facility] Body temperature 37.798166 Kaylie 37.448639 [facility] Respiratory rate 18 /min 18 /min [facility] Oxygen 100 % 100 % [place] saturation in Medical Arterial blood Center by Pulse oximetry Heart rate 95 /min 95 /min [facility] Body height 175.556974 cm 175.309014 cm [facility] Diastolic blood 83 mm[Hg] 83 mm[Hg] [facility] Systolic blood 148 mm[Hg] 148 mm[Hg] [facility] Body mass index 36.9 kg/m2 36.9 kg/m2 [facility] (BMI) [Ratio] Medical Center Body weight 105.854698 kg 105.046190 kg [facility] Body temperature 36.737163 Kaylie 36.404782 [facility] Respiratory rate 18 /min 18 /min [facility] Oxygen 93 % 93 % [place] saturation in Medical Arterial blood Center by Pulse oximetry Heart rate 88 /min 88 /min [facility] Body height 173.522366 cm 173.385549 cm [facility] Diastolic blood 88 mm[Hg] 88 mm[Hg] [facility] pressure Medical Center Systolic blood 140 mm[Hg] 140 mm[Hg] [facility] Body mass index 35.0 kg/m2 35.0 kg/m2 [facility] (BMI) [Ratio] Medical Center Body temperature 37.807352 Kaylie 37.635976 [facility] Respiratory rate 18 /min 18 /min [facility] Oxygen 95 % 95 % [place] saturation in Medical Arterial blood Center by Pulse oximetry Heart rate 97 /min 97 /min [facility] Diastolic blood 78 mm[Hg] 78 mm[Hg] [facility] pressure Medical Center Systolic blood 132 mm[Hg] 132 mm[Hg] [facility] Body temperature 37.326804 Kaylie 37.870480 [facility] Respiratory rate 18 /min 18 /min [facility] Oxygen 95 % 95 % [place] saturation in Medical Arterial blood Center by Pulse oximetry Heart rate 96 /min 96 /min [facility] Diastolic blood 77 mm[Hg] 77 mm[Hg] [facility] Systolic blood 129 mm[Hg] 129 mm[Hg] [facility] Systolic blood 101 mm[Hg] 101 mm[Hg] [facility] Body temperature 37.221078 Kaylie 37.236555 [facility] Respiratory rate 17 /min 17 /min [facility] Oxygen 95 % 95 % [facility] [place] saturation in [facility] by Pulse oximetry Heart rate 96 /min 96 /min [facility] Diastolic blood 57 mm[Hg] 57 mm[Hg] [facility] Body temperature 36.774512 Kaylie 36.208589 Kay[facility] Respiratory rate 17 /min 17 /min [facility] Oxygen 98 % 98 % [facility] [place] saturation in [facility] Arterial blood Center by Pulse oximetry Heart rate 71 /min 71 /min [facility] Diastolic blood 68 mm[Hg] 68 mm[Hg] [facility] pressure Medical Center Systolic blood 137 mm[Hg] 137 mm[Hg] [facility] Body temperature 36.130180 Kaylie 36.279911 Kaylie [facility] Respiratory rate 17 /min 17 /min [facility] Oxygen 98 % 98 % [facility] [place] saturation in [facility] Arterial blood Center by Pulse oximetry Heart rate 73 /min 73 /min [facility] Diastolic blood 62 mm[Hg] 62 mm[Hg] [facility] pressure Medical Center Systolic blood 133 mm[Hg] 133 mm[Hg] [facility] Body temperature 36.755719 Kaylie 36.776610 [facility] Respiratory rate 18 /min 18 /min [facility] Oxygen 99 % 99 % [place] saturation in [facility] Arterial blood Center by Pulse oximetry Heart rate 78 /min 78 /min [facility] Diastolic blood 81 mm[Hg] 81 mm[Hg] [facility] pressure Medical Center Systolic blood 158 mm[Hg] 158 mm[Hg] [facility] Body weight 150.450115 kg 150.286990 kg [facility] Body temperature 36.778600 Kaylie 36.566611 [facility] Respiratory rate 16 /min 16 /min [facility] Oxygen 98 % 98 % [place] saturation in [facility] Ar[facility] blood Center by Pulse oximetry Heart rate 93 /min 93 /min [facility] Body height 177.731650 cm 177.130822 cm [facility] Diastolic blood 92 mm[Hg] 92 mm[Hg] [facility] pressure Medical Center Systolic blood 140 mm[Hg] 140 mm[Hg] [facility] Body mass index 47.4 kg/m2 47.4 kg/m2 [facility] (BMI) [Ratio] Medical Center Body weight 68.197715 kg 68.694375 kg [facility] Measured [facility] Body temperature 36.798660 Kaylie 36.026971 [facility] Respiratory rate 18 /min 18 /min [facility] Oxygen 93 % 93 % [facility] [place] saturation in [facility] Ar[facility] blood Center by Pulse oximetry Heart rate 93 /min 93 /min [facility] Diastolic blood 87 mm[Hg] 87 mm[Hg] [facility] pressure Medical Center Systolic blood 160 mm[Hg] 160 mm[Hg] [facility] Body temperature 36.192627 Kaylie 36.255052 [facility] Respiratory rate 19 /min 19 /min [facility] Oxygen 97 % 97 % [place] saturation in [facility] Ar[facility] blood Center by Pulse oximetry Heart rate 88 /min 88 /min [facility] Diastolic blood 80 mm[Hg] 80 mm[Hg] [facility] Systolic blood 150 mm[Hg] 150 mm[Hg] [facility] [place] Body temperature 36.131874 Kaylie 36.276262 [facility] Respiratory rate 17 /min 17 /min [facility] Oxygen 97 % 97 % [facility] [place] saturation in [facility] Ar[facility] blood Center by Pulse oximetry Heart rate 75 /min 75 /min [facility] Diastolic blood 68 mm[Hg] 68 mm[Hg] [facility] Systolic blood 134 mm[Hg] 134 mm[Hg] [facility] Body temperature 36.256858 Kaylie 36.823137 [facility] Respiratory rate 18 /min 18 /min [facility] Oxygen 96 % 96 % [facility] [place] saturation in Medical Arterial blood Center by Pulse oximetry Heart rate 85 /min 85 /min [facility] Diastolic blood 82 mm[Hg] 82 mm[Hg] [facility] Systolic blood 138 mm[Hg] 138 mm[Hg] [facility] [place] Body temperature 36.515568 Kaylie 36.190883 [facility] Respiratory rate 18 /min 18 /min [facility] Oxygen 97 % 97 % [place] saturation in [facility] Arter[facility] blood Center by Pulse oximetry Heart rate 88 /min 88 /min [facility] Diastolic blood 72 mm[Hg] 72 mm[Hg] [facility] Systolic blood 137 mm[Hg] 137 mm[Hg] [facility] Body temperature 37.284312 Kaylie 37.531425 [facility] Respiratory rate 18 /min 18 /min [facility] Oxygen 93 % 93 % [place] saturation in [facility] Arterial blood Center by Pulse oximetry Heart rate 94 /min 94 /min [facility] Diastolic blood 70 mm[Hg] 70 mm[Hg] [facility] pressure Medical Center Systolic blood 132 mm[Hg] 132 mm[Hg] [facility] Body temperature 36.159987 Kaylie 36.288065 Kay[facility] Respiratory rate 18 /min 18 /min [facility] Oxygen 97 % 97 % [place] saturation in [facility] Arter[facility] blood Center by Pulse oximetry Heart rate 76 /min 76 /min [facility] Diastolic blood 76 mm[Hg] 76 mm[Hg] [facility] Systolic blood 144 mm[Hg] 144 mm[Hg] [facility] Body temperature 36.347937 Kaylie 36.940165 Kay[facility] Respiratory rate 19 /min 19 /min [facility] Oxygen 97 % 97 % [place] saturation in Medical Arterial blood Center by Pulse oximetry Heart rate 77 /min 77 /min [facility] Diastolic blood 86 mm[Hg] 86 mm[Hg] [facility] Systolic blood 153 mm[Hg] 153 mm[Hg] [facility] Body temperature 36.832943 Kaylie 36.629659 Kay[facility] Respiratory rate 17 /min 17 /min [facility] Oxygen 98 % 98 % [place] saturation in [facility] Arter[facility] blood Center by Pulse oximetry Heart rate 75 /min 75 /min [facility] Diastolic blood 75 mm[Hg] 75 mm[Hg] [facility] pressure Medical Center Systolic blood 129 mm[Hg] 129 mm[Hg] [facility] Body temperature 37.711574 Kaylie 37.919935 Kay[facility] Respiratory rate 18 /min 18 /min [facility] Oxygen 97 % 97 % [place] saturation in [facility] Ar[facility] blood Center by Pulse oximetry Heart rate 76 /min 76 /min [facility] Diastolic blood 77 mm[Hg] 77 mm[Hg] [facility] Systolic blood 130 mm[Hg] 130 mm[Hg] [facility] Body temperature 36.545857 Kaylie 36.799909 Kay[facility] Respiratory rate 17 /min 17 /min [facility] Oxygen 98 % 98 % [place] saturation in [facility] Arter[facility] blood Center by Pulse oximetry Heart rate 78 /min 78 /min [facility] Diastolic blood 68 mm[Hg] 68 mm[Hg] [facility] [place] Systolic blood 129 mm[Hg] 129 mm[Hg] [facility] Body temperature 36.340034 Kaylie 36.507388 Kay[facility] Respiratory rate 19 /min 19 /min [facility] Oxygen 98 % 98 % [place] saturation in [facility] Arterial blood Center by Pulse oximetry Heart rate 92 /min 92 /min [facility] Diastolic blood 64 mm[Hg] 64 mm[Hg] [facility] [place] Systolic blood 125 mm[Hg] 125 mm[Hg] [facility] Body temperature 36.746478 Kaylie 36.786040 Kay[facility] Respiratory rate 20 /min 20 /min [facility] Oxygen 98 % 98 % [place] saturation in Medical Arterial blood Center by Pulse oximetry Heart rate 93 /min 93 /min [facility] Diastolic blood 92 mm[Hg] 92 mm[Hg] [facility] [place] Systolic blood 150 mm[Hg] 150 mm[Hg] [facility] Body temperature 36.104106 Kaylie 36.516233 Kay[facility] Respiratory rate 18 /min 18 /min [facility] Oxygen 97 % 97 % [place] saturation in Medical Arterial blood Center by Pulse oximetry Heart rate 79 /min 79 /min [facility] Diastolic blood 78 mm[Hg] 78 mm[Hg] [facility] Systolic blood 138 mm[Hg] 138 mm[Hg] [facility] Body temperature 36.317877 Kaylie 36.882198 Kay[facility] Respiratory rate 17 /min 17 /min [facility] Oxygen 95 % 95 % [place] saturation in Medical Arterial blood Center by Pulse oximetry Heart rate 72 /min 72 /min [facility] Diastolic blood 67 mm[Hg] 67 mm[Hg] [facility] pressure Medical Center Systolic blood 134 mm[Hg] 134 mm[Hg] [facility] Body temperature 36.483678 Kaylie 36.313947 Kay[facility] Respiratory rate 19 /min 19 /min [facility] Oxygen 95 % 95 % [facility] saturation in Medical Arterial blood Center by Pulse oximetry Heart rate 68 /min 68 /min [facility] Diastolic blood 68 mm[Hg] 68 mm[Hg] [facility] pressure Medical Center Systolic blood 144 mm[Hg] 144 mm[Hg] [facility] Body temperature 36.214936 Kaylie 36.038853 Kay[facility] Respiratory rate 17 /min 17 /min [facility] Oxygen 96 % 96 % [facility] saturation in Medical Arterial blood Center by Pulse oximetry Heart rate 78 /min 78 /min [facility] Diastolic blood 76 mm[Hg] 76 mm[Hg] [facility] Systolic blood 140 mm[Hg] 140 mm[Hg] [facility] Body weight 99.795860 kg 99.570260 kg [facility] [place] Body temperature 36.617143 Kaylie 36.913098 Kay[facility] Respiratory rate 19 /min 19 /min [facility] Oxygen 98 % 98 % [facility] saturation in Medical Arterial blood Center by Pulse oximetry Heart rate 88 /min 88 /min [facility] Body height 177.840850 cm 177.263605 cm [facility] Diastolic blood 82 mm[Hg] 82 mm[Hg] [facility] pressure Medical Center Systolic blood 148 mm[Hg] 148 mm[Hg] [facility] Body mass index 31.5 kg/m2 31.5 kg/m2 [facility] (BMI) [Ratio] Medical Center Body temperature 36.843432 Kaylie 36.936288 Kay[facility] Respiratory rate 17 /min 17 /min [facility] Oxygen 98 % 98 % [facility] saturation in Medical Arterial blood Center by Pulse oximetry Heart rate 94 /min 94 /min [facility] Diastolic blood 90 mm[Hg] 90 mm[Hg] [facility] Systolic blood 160 mm[Hg] 160 mm[Hg] [facility] Respiratory rate 18 /min 18 /min [facility] Oxygen 98 % 98 % [place] saturation in Medical Arterial blood Center by Pulse oximetry Heart rate 85 /min 85 /min [facility] Diastolic blood 85 mm[Hg] 85 mm[Hg] [facility] Systolic blood 142 mm[Hg] 142 mm[Hg] [facility] Body temperature 37.536896 Kaylie 37.975382 Kay[facility] Body weight 110.851459 kg 110.689914 kg [facility] Body temperature 36.126905 Kaylie 36.457397 Kay[facility] Respiratory rate 18 /min 18 /min [facility] Oxygen 98 % 98 % [facility] saturation in Medical Arterial blood Center by Pulse oximetry Heart rate 84 /min 84 /min [facility] Body height 182.276637 cm 182.636594 cm [facility] Diastolic blood 58 mm[Hg] 58 mm[Hg] [facility] Systolic blood 148 mm[Hg] 148 mm[Hg] [facility] Body mass index 32.8 kg/m2 32.8 kg/m2 [facility] (BMI) [Ratio] Medical Center Body temperature 36.114416 Kaylie 36.657152 Kaylie [facility] Respiratory rate 18 /min 18 /min [facility] Oxygen 97 % 97 % [place] saturation in Medical Arterial blood Center by Pulse oximetry Heart rate 118 /min 118 /min [facility] Diastolic blood 58 mm[Hg] 58 mm[Hg] [facility] Systolic blood 120 mm[Hg] 120 mm[Hg] [facility] Body temperature 36.722578 Kaylie 36.590215 Kay[facility] Respiratory rate 20 /min 20 /min [facility] Oxygen 96 % 96 % [place] saturation in Medical Arterial blood Center by Pulse oximetry Heart rate 143 /min 143 /min [facility] Diastolic blood 40 mm[Hg] 40 mm[Hg] [facility] Systolic blood 119 mm[Hg] 119 mm[Hg] [facility] Respiratory rate 20 /min 20 /min [facility] Oxygen 98 % 98 % [place] saturation in Medical Arterial blood Center by Pulse oximetry Heart rate 92 /min 92 /min [facility] Diastolic blood 86 mm[Hg] 86 mm[Hg] [facility] pressure Medical Center Systolic blood 134 mm[Hg] 134 mm[Hg] [facility] Body temperature 36.429022 Kaylie 36.728565 Kaylie [facility] Respiratory rate 18 /min 18 /min [facility] Oxygen 98 % 98 % [facility] saturation in Medical Arterial blood Center by Pulse oximetry Heart rate 87 /min 87 /min [facility] Diastolic blood 90 mm[Hg] 90 mm[Hg] [facility] pressure Medical Center Systolic blood 145 mm[Hg] 145 mm[Hg] [facility] Body temperature 36.892858 Kaylie 36.074475 Kaylie [facility] Respiratory rate 16 /min 16 /min [facility] Oxygen 97 % 97 % [facility] saturation in Medical Arterial blood Center by Pulse oximetry Heart rate 85 /min 85 /min [facility] Diastolic blood 76 mm[Hg] 76 mm[Hg] [facility] Systolic blood 123 mm[Hg] 123 mm[Hg] [facility] Body temperature 36.577769 Kaylie 36.238558 Kaylie [facility] Body weight 125.754130 kg 125.047316 kg [facility] Body temperature 36.140761 Kaylie 36.476505 Kaylie [facility] Respiratory rate 20 /min 20 /min [facility] Oxygen 95 % 95 % [facility] saturation in Medical Arterial blood Center by Pulse oximetry Heart rate 100 /min 100 /min [facility] Body height 177.591947 cm 177.687500 cm [facility] Diastolic blood 76 mm[Hg] 76 mm[Hg] [facility] Systolic blood 124 mm[Hg] 124 mm[Hg] [facility] Body mass index 39.5 kg/m2 39.5 kg/m2 [facility] (BMI) [Ratio] Medical Center Body temperature 36.534528 Kaylie 36.024369 Kaylie [facility] Respiratory rate 17 /min 17 /min [facility] Oxygen 96 % 96 % [place] saturation in [facility] Arterial blood Center by Pulse oximetry Heart rate 77 /min 77 /min [facility] Diastolic blood 71 mm[Hg] 71 mm[Hg] [facility] pressure Medical Center Systolic blood 122 mm[Hg] 122 mm[Hg] [facility] Body temperature 37.499685 Kaylie 37.430648 Kay[facility] Respiratory rate 19 /min 19 /min [facility] Oxygen 96 % 96 % [place] saturation in Medical Arterial blood Center by Pulse oximetry Heart rate 72 /min 72 /min [facility] Diastolic blood 64 mm[Hg] 64 mm[Hg] [facility] pressure Medical Center Systolic blood 140 mm[Hg] 140 mm[Hg] [facility] [place] Body temperature 36.708555 Kaylie 36.413928 Kaylie [facility] Respiratory rate 18 /min 18 /min [facility] Oxygen 97 % 97 % [place] saturation in Medical Arterial blood Center by Pulse oximetry Heart rate 68 /min 68 /min [facility] Diastolic blood 86 mm[Hg] 86 mm[Hg] [facility] Systolic blood 135 mm[Hg] 135 mm[Hg] [facility] [place] Body temperature 36.643927 Kaylie 36.549822 Kay[facility] Respiratory rate 18 /min 18 /min [facility] Oxygen 97 % 97 % [place] saturation in Medical Arterial blood Center by Pulse oximetry Heart rate 78 /min 78 /min [facility] Diastolic blood 69 mm[Hg] 69 mm[Hg] [facility] Systolic blood 134 mm[Hg] 134 mm[Hg] [facility] Body temperature 36.528584 Kaylie 36.336973 Kay[facility] Respiratory rate 18 /min 18 /min [facility] Oxygen 96 % 96 % [place] saturation in Medical Arterial blood Center by Pulse oximetry Heart rate 87 /min 87 /min [facility] Diastolic blood 80 mm[Hg] 80 mm[Hg] [facility] pressure [facility] Center Systolic blood 135 mm[Hg] 135 mm[Hg] [facility] Heart rate 77 /min 77 /min [facility] Diastolic blood 77 mm[Hg] 77 mm[Hg] [facility] pressure [facility] Center Systolic blood 142 mm[Hg] 142 mm[Hg] [facility] Body temperature 36.991542 Kaylie 36.189283 Kay[facility] Respiratory rate 18 /min 18 /min [facility] Oxygen 97 % 97 % [place] saturation in Medical Arterial blood Center by Pulse oximetry Body temperature 36.086857 Kaylie 36.804063 Kay[facility] Respiratory rate 18 /min 18 /min [facility] Oxygen 98 % 98 % [place] saturation in Medical Arterial blood Center by Pulse oximetry Heart rate 78 /min 78 /min [facility] Diastolic blood 80 mm[Hg] 80 mm[Hg] [facility] Systolic blood 124 mm[Hg] 124 mm[Hg] [facility] [place] Body temperature 36.488504 Kaylie 36.238651 Kay[facility] Respiratory rate 17 /min 17 /min [facility] Oxygen 96 % 96 % [place] saturation in Medical Arterial blood Center by Pulse oximetry Heart rate 80 /min 80 /min [facility] Diastolic blood 88 mm[Hg] 88 mm[Hg] [facility] pressure Medical Center Systolic blood 133 mm[Hg] 133 mm[Hg] [facility] [place] Body temperature 36.060479 Kaylie 36.985561 Kay[facility] Respiratory rate 17 /min 17 /min [facility] Oxygen 99 % 99 % [place] saturation in Medical Arterial blood Center by Pulse oximetry Heart rate 80 /min 80 /min [facility] Diastolic blood 78 mm[Hg] 78 mm[Hg] [facility] Systolic blood 132 mm[Hg] 132 mm[Hg] [facility] Body weight 90.134450 kg 90.401157 kg [facility] [place] Body height 177.689187 cm 177.396457 cm [facility] Body mass index 28.4 kg/m2 28.4 kg/m2 [facility] (BMI) [Ratio] Medical Center Body temperature 36.242372 Kaylie 36.979413 Kay[facility] Respiratory rate 18 /min 18 /min [facility] Oxygen 96 % 96 % [place] saturation in Medical Arterial blood Center by Pulse oximetry Heart rate 90 /min 90 /min [facility] Diastolic blood 58 mm[Hg] 58 mm[Hg] [facility] pressure [facility] Center Systolic blood 111 mm[Hg] 111 mm[Hg] [facility] Body temperature 36.892219 Kaylie 36.514028 [facility] Respiratory rate 18 /min 18 /min [facility] Oxygen 95 % 95 % [place] saturation in Medical Arterial blood Center by Pulse oximetry Heart rate 94 /min 94 /min [facility] Diastolic blood 55 mm[Hg] 55 mm[Hg] [facility] Systolic blood 114 mm[Hg] 114 mm[Hg] [facility] Body weight 110.472987 kg 110.172454 kg [facility] Body temperature 37.113962 Kaylie 37.615682 Kay[facility] Respiratory rate 18 /min 18 /min [facility] Oxygen 98 % 98 % [facility] saturation in Medical Arterial blood Center by Pulse oximetry Heart rate 88 /min 88 /min [facility] Body height 185.980236 cm 185.020284 cm [facility] Diastolic blood 78 mm[Hg] 78 mm[Hg] [facility] Systolic blood 143 mm[Hg] 143 mm[Hg] [facility] Body mass index 31.9 kg/m2 31.9 kg/m2 [facility] (BMI) [Ratio] Medical Center Diastolic blood 79 mm[Hg] 79 mm[Hg] [facility] Systolic blood 122 mm[Hg] 122 mm[Hg] [facility] Body temperature 36.608335 Kaylie 36.399911 Kaylie [facility] Respiratory rate 18 /min 18 /min [facility] Oxygen 98 % 98 % [place] saturation in Medical Arterial blood Center by Pulse oximetry Heart rate 88 /min 88 /min [facility] Diastolic blood 51 mm[Hg] 51 mm[Hg] [facility] Systolic blood 81 mm[Hg] 81 mm[Hg] [facility] Body temperature 37.446298 Kaylie 37.640688 [facility] Respiratory rate 18 /min 18 /min [facility] Oxygen 96 % 96 % [place] saturation in Medical Arterial blood Center by Pulse oximetry Heart rate 98 /min 98 /min [facility] Diastolic blood 90 mm[Hg] 90 mm[Hg] [facility] pressure Medical Center Systolic blood 148 mm[Hg] 148 mm[Hg] [facility] Body temperature 37.238993 Kaylie 37.603793 [facility] Respiratory rate 18 /min 18 /min [facility] Oxygen 95 % 95 % [place] saturation in Medical Arterial blood Center by Pulse oximetry Heart rate 99 /min 99 /min [facility] Diastolic blood 79 mm[Hg] 79 mm[Hg] [facility] Systolic blood 132 mm[Hg] 132 mm[Hg] [facility] [place] Body temperature 36.654126 Kaylie 36.033137 [facility] Respiratory rate 18 /min 18 /min [facility] Oxygen 96 % 96 % [place] saturation in Medical Arterial blood Center by Pulse oximetry Heart rate 97 /min 97 /min [facility] Diastolic blood 64 mm[Hg] 64 mm[Hg] [facility] Systolic blood 118 mm[Hg] 118 mm[Hg] [facility] Body temperature 36.391030 Kaylie 36.306227 [facility] Respiratory rate 18 /min 18 /min [facility] Oxygen 96 % 96 % [place] saturation in Medical Arterial blood Center by Pulse oximetry Heart rate 95 /min 95 /min [facility] Diastolic blood 68 mm[Hg] 68 mm[Hg] [facility] Systolic blood 127 mm[Hg] 127 mm[Hg] [facility] Body temperature 37.538589 Kaylie 37.968387 [facility] Respiratory rate 18 /min 18 /min [facility] Oxygen 95 % 95 % [place] saturation in Medical Arterial blood Center by Pulse oximetry Heart rate 94 /min 94 /min [facility] Diastolic blood 69 mm[Hg] 69 mm[Hg] [facility] pressure Medical Center Systolic blood 115 mm[Hg] 115 mm[Hg] [facility] Body temperature 36.842356 Kaylie 36.385812 [facility] Respiratory rate 17 /min 17 /min [facility] Oxygen 95 % 95 % [place] saturation in Medical Arterial blood Center by Pulse oximetry Heart rate 90 /min 90 /min [facility] Diastolic blood 60 mm[Hg] 60 mm[Hg] [facility] Systolic blood 109 mm[Hg] 109 mm[Hg] [facility] Body temperature 36.253964 Kaylie 36.984630 [facility] Respiratory rate 16 /min 16 /min [facility] Heart rate 85 /min 85 /min [facility] Diastolic blood 73 mm[Hg] 73 mm[Hg] [facility] pressure Medical Center Systolic blood 140 mm[Hg] 140 mm[Hg] [facility] [place] Body temperature 36.246343 Kaylie 36.988802 [facility] Respiratory rate 18 /min 18 /min [facility] Oxygen 95 % 95 % [place] saturation in Medical Arterial blood Center by Pulse oximetry Heart rate 90 /min 90 /min [facility] Diastolic blood 76 mm[Hg] 76 mm[Hg] [facility] Systolic blood 131 mm[Hg] 131 mm[Hg] [facility] [place] Body temperature 36.503224 Kaylie 36.096127 [facility] Respiratory rate 18 /min 18 /min [facility] Oxygen 94 % 94 % [place] saturation in Medical Arterial blood Center by Pulse oximetry Heart rate 88 /min 88 /min [facility] Diastolic blood 74 mm[Hg] 74 mm[Hg] [facility] pressure Medical Center Systolic blood 152 mm[Hg] 152 mm[Hg] [facility] [place] Body temperature 36.465999 Kaylie 36.293569 [facility] Respiratory rate 17 /min 17 /min [facility] Heart rate 99 /min 99 /min [facility] Diastolic blood 52 mm[Hg] 52 mm[Hg] [facility] Systolic blood 111 mm[Hg] 111 mm[Hg] [facility] Body weight 79.146523 kg [address].0118[address] [facility] Body temperature 36.099413 Kaylie 36.561480 [facility] Respiratory rate 19 /min 19 /min [facility] Oxygen 95 % 95 % [place] saturation in Medical Arterial blood Center by Pulse oximetry Heart rate 74 /min 74 /min [facility] Body height 170.692397 cm 170.996323 cm [facility] Diastolic blood 86 mm[Hg] 86 mm[Hg] [facility] pressure Medical Center Systolic blood 152 mm[Hg] 152 mm[Hg] [facility] Body mass index 27.4 kg/m2 27.4 kg/m2 [facility] (BMI) [Ratio] Medical Center Body temperature 36.290725 Kaylie 36.781597 [facility] Respiratory rate 18 /min 18 /min [facility] Oxygen 98 % 98 % [place] saturation in Medical Arterial blood Center by Pulse oximetry Heart rate 96 /min 96 /min [facility] Diastolic blood 78 mm[Hg] 78 mm[Hg] [facility] pressure Medical Center Systolic blood 143 mm[Hg] 143 mm[Hg] [facility] Body temperature 36.190613 Kaylie 36.405480 [facility] Respiratory rate 19 /min 19 /min [facility] Oxygen 96 % 96 % [place] saturation in Medical Arterial blood Center by Pulse oximetry Heart rate 105 /min 105 /min [facility] Diastolic blood 66 mm[Hg] 66 mm[Hg] [facility] Systolic blood 113 mm[Hg] 113 mm[Hg] [facility] Body temperature 36.794449 Kaylie 36.201628 [facility] Respiratory rate 18 /min 18 /min [facility] Oxygen 96 % 96 % [place] saturation in Medical Arterial blood Center by Pulse oximetry Heart rate 92 /min 92 /min [facility] Diastolic blood 70 mm[Hg] 70 mm[Hg] [facility] Systolic blood 128 mm[Hg] 128 mm[Hg] [facility] Body temperature 36.116659 Kaylie 36.304020 [facility] Respiratory rate 17 /min 17 /min [facility] Oxygen 97 % 97 % [place] saturation in Medical Arterial blood Center by Pulse oximetry Heart rate 78 /min 78 /min [facility] Diastolic blood 78 mm[Hg] 78 mm[Hg] [facility] pressure Medical Center Systolic blood 138 mm[Hg] 138 mm[Hg] [facility] Body temperature 36.867556 Kaylie 36.782215 [facility] Respiratory rate 18 /min 18 /min [facility] Oxygen 95 % 95 % [place] saturation in Medical Arterial blood Center by Pulse oximetry Heart rate 90 /min 90 /min [facility] Diastolic blood 77 mm[Hg] 77 mm[Hg] [facility] Systolic blood 147 mm[Hg] 147 mm[Hg] [facility] Body temperature 37.719958 Kaylie 37.506001 [facility] Respiratory rate 18 /min 18 /min [facility] Oxygen 95 % 95 % [place] saturation in Medical Arterial blood Center by Pulse oximetry Heart rate 74 /min 74 /min [facility] Diastolic blood 65 mm[Hg] 65 mm[Hg] [facility] [place] Systolic blood 127 mm[Hg] 127 mm[Hg] [facility] [place] Body temperature 36.996941 Kaylie 36.459434 [facility] Respiratory rate 18 /min 18 /min [facility] Oxygen 96 % 96 % [place] saturation in Medical Arterial blood Center by Pulse oximetry Heart rate 90 /min 90 /min [facility] Diastolic blood 60 mm[Hg] 60 mm[Hg] [facility] Systolic blood 131 mm[Hg] 131 mm[Hg] [facility] [place] Body temperature 36.494990 Kaylie 36.568504 [facility] Respiratory rate 17 /min 17 /min [facility] Oxygen 98 % 98 % [place] saturation in Medical Arterial blood Center by Pulse oximetry Heart rate 73 /min 73 /min [facility] Diastolic blood 75 mm[Hg] 75 mm[Hg] [facility] Systolic blood 139 mm[Hg] 139 mm[Hg] [facility] [place] Body temperature 36.362789 Kaylie 36.975857 [facility] Respiratory rate 18 /min 18 /min [facility] Oxygen 99 % 99 % [place] saturation in Medical Arterial blood Center by Pulse oximetry Heart rate 103 /min 103 /min [facility] Diastolic blood 43 mm[Hg] 43 mm[Hg] [facility] pressure Medical Center Systolic blood 117 mm[Hg] 117 mm[Hg] [facility] Body temperature 37.792941 Kaylie 37.900343 [facility] Respiratory rate 17 /min 17 /min [facility] Oxygen 95 % 95 % [place] saturation in Medical Arterial blood Center by Pulse oximetry Heart rate 97 /min 97 /min [facility] Diastolic blood 83 mm[Hg] 83 mm[Hg] [facility] Systolic blood 154 mm[Hg] 154 mm[Hg] [facility] [place] Body temperature 36.912909 Kaylie 36.668603 [facility] Respiratory rate 18 /min 18 /min [facility] Oxygen 98 % 98 % [place] saturation in Medical Arterial blood Center by Pulse oximetry Heart rate 91 /min 91 /min [facility] Diastolic blood 90 mm[Hg] 90 mm[Hg] [facility] Systolic blood 158 mm[Hg] 158 mm[Hg] [facility] Body temperature 36.922166 Kaylie 36.910770 [facility] Respiratory rate 18 /min 18 /min [facility] Oxygen 96 % 96 % [place] saturation in Medical Arterial blood Center by Pulse oximetry Heart rate 91 /min 91 /min [facility] Diastolic blood 98 mm[Hg] 98 mm[Hg] [facility] Systolic blood 149 mm[Hg] 149 mm[Hg] [facility] Body temperature 36.721455 Kaylie 36.882537 [facility] Respiratory rate 18 /min 18 /min [facility] Oxygen 98 % 98 % [place] saturation in Medical Arterial blood Center by Pulse oximetry Heart rate 84 /min 84 /min [facility] Diastolic blood 67 mm[Hg] 67 mm[Hg] [facility] Systolic blood 128 mm[Hg] 128 mm[Hg] [facility] Body weight 90.192364 kg 90.927999 kg [facility] Body temperature 36.860771 Kaylie 36.762412 [facility] Respiratory rate 17 /min 17 /min [facility] Oxygen 96 % 96 % [place] saturation in Medical Arterial blood Center by Pulse oximetry Heart rate 79 /min 79 /min [facility] Body height 177.007222 cm 177.539881 cm [facility] Diastolic blood 74 mm[Hg] 74 mm[Hg] [facility] pressure Medical Center Systolic blood 120 mm[Hg] 120 mm[Hg] [facility] Body mass index 28.6 kg/m2 28.6 kg/m2 [facility] (BMI) [Ratio] Medical Center Body temperature 37.592130 Kaylie 37.422613 Kay[facility] Respiratory rate 18 /min 18 /min [facility] Heart rate 95 /min 95 /min [facility] Diastolic blood 114 mm[Hg] 114 mm[Hg] [facility] pressure Medical Center Systolic blood 179 mm[Hg] 179 mm[Hg] [facility] Body temperature 36.985366 Kaylie 36.884511 Kay[facility] Respiratory rate 18 /min 18 /min [facility] Oxygen 96 % 96 % [place] saturation in Medical Arterial blood Center by Pulse oximetry Heart rate 85 /min 85 /min [facility] Diastolic blood 90 mm[Hg] 90 mm[Hg] [facility] Systolic blood 144 mm[Hg] 144 mm[Hg] [facility] Body temperature 36.194749 Kaylie 36.798922 Kay[facility] Respiratory rate 18 /min 18 /min [facility] Oxygen 95 % 95 % [place] saturation in Medical Arterial blood Center by Pulse oximetry Heart rate 84 /min 84 /min [facility] Diastolic blood 80 mm[Hg] 80 mm[Hg] [facility] Systolic blood 138 mm[Hg] 138 mm[Hg] [facility] [place] Body weight 110.466342 kg 110.575021 kg [facility] Body temperature 36.036697 Kaylie 36.476637 Kay[facility] Respiratory rate 18 /min 18 /min [facility] Oxygen 98 % 98 % [place] saturation in Medical Arterial blood Center by Pulse oximetry Heart rate 78 /min 78 /min [facility] Body height 185.987071 cm 185.051656 cm [facility] Diastolic blood 78 mm[Hg] 78 mm[Hg] [facility] pressure Medical Center Systolic blood 148 mm[Hg] 148 mm[Hg] [facility] Body mass index 31.9 kg/m2 31.9 kg/m2 [facility] (BMI) [Ratio] Medical Center Body temperature 36.298483 Kaylie 36.609215 Kay[facility] Respiratory rate 20 /min 20 /min [facility] Oxygen 94 % 94 % [place] saturation in Medical Arterial blood Center by Pulse oximetry Heart rate 80 /min 80 /min [facility] Diastolic blood 69 mm[Hg] 69 mm[Hg] [facility] Systolic blood 125 mm[Hg] 125 mm[Hg] [facility] Body temperature 36.687393 Kaylie 36.820067 [facility] Respiratory rate 18 /min 18 /min [facility] Oxygen 100 % 100 % [place] saturation in Medical Arterial blood Center by Pulse oximetry Heart rate 78 /min 78 /min [facility] Diastolic blood 70 mm[Hg] 70 mm[Hg] [facility] Systolic blood 130 mm[Hg] 130 mm[Hg] [facility] Body temperature 36.564912 Kaylie 36.155373 [facility] Respiratory rate 18 /min 18 /min [facility] Oxygen 95 % 95 % [place] saturation in Medical Arterial blood Center by Pulse oximetry Heart rate 93 /min 93 /min [facility] Diastolic blood 83 mm[Hg] 83 mm[Hg] [facility] Systolic blood 163 mm[Hg] 163 mm[Hg] [facility] Body temperature 36.907143 Kaylie 36.814787 Kay[facility] Respiratory rate 20 /min 20 /min [facility] Oxygen 94 % 94 % [place] saturation in Medical Arterial blood Center by Pulse oximetry Heart rate 94 /min 94 /min [facility] Diastolic blood 90 mm[Hg] 90 mm[Hg] [facility] Systolic blood 130 mm[Hg] 130 mm[Hg] [facility] Body weight 104.398832 kg 104.578202 kg [facility] Body temperature 36.531531 Kaylie 36.124252 Kaylie [facility] Respiratory rate 17 /min 17 /min [facility] Oxygen 100 % 100 % [place] saturation in Medical Arterial blood Center by Pulse oximetry Heart rate 91 /min 91 /min [facility] Body height 177.091857 cm 177.475529 cm [facility] Diastolic blood 97 mm[Hg] 97 mm[Hg] [facility] Systolic blood 123 mm[Hg] 123 mm[Hg] [facility] Body mass index 33.0 kg/m2 33.0 kg/m2 [facility] (BMI) [Ratio] Medical Center Body temperature 37.917258 Kaylie 37.767382 Kay[facility] Respiratory rate 18 /min 18 /min [facility] Oxygen 97 % 97 % [place] saturation in Medical Arterial blood Center by Pulse oximetry Heart rate 90 /min 90 /min [facility] Diastolic blood 76 mm[Hg] 76 mm[Hg] [facility] [place] Systolic blood 148 mm[Hg] 148 mm[Hg] [facility] Body temperature 37.208409 Kaylie 37.687043 Kay[facility] Respiratory rate 18 /min 18 /min [facility] Oxygen 96 % 96 % [place] saturation in Medical Arterial blood Center by Pulse oximetry Heart rate 96 /min 96 /min [facility] Diastolic blood 97 mm[Hg] 97 mm[Hg] [facility] Systolic blood 176 mm[Hg] 176 mm[Hg] [facility] Body temperature 36.688857 Kaylie 36.233853 Kay[facility] Respiratory rate 18 /min 18 /min [facility] Oxygen 99 % 99 % [place] saturation in Medical Arterial blood Center by Pulse oximetry Heart rate 98 /min 98 /min [facility] Diastolic blood 91 mm[Hg] 91 mm[Hg] [facility] Systolic blood 152 mm[Hg] 152 mm[Hg] [facility] Body temperature 37.122234 Kaylie 37.504978 Kay[facility] Respiratory rate 18 /min 18 /min [facility] Oxygen 94 % 94 % [place] saturation in Medical Arterial blood Center by Pulse oximetry Heart rate 84 /min 84 /min [facility] Diastolic blood 81 mm[Hg] 81 mm[Hg] [facility] pressure Medical Center Systolic blood 144 mm[Hg] 144 mm[Hg] [facility] Body temperature 36.652072 Kaylie 36.811235 Kay[facility] Respiratory rate 19 /min 19 /min [facility] Oxygen 99 % 99 % [place] saturation in Medical Arterial blood Center by Pulse oximetry Heart rate 80 /min 80 /min [facility] Diastolic blood 78 mm[Hg] 78 mm[Hg] [facility] pressure Medical Center Systolic blood 139 mm[Hg] 139 mm[Hg] [facility] Body temperature 36.523582 Kaylie 36.714096 [facility] Respiratory rate 19 /min 19 /min [facility] Oxygen 97 % 97 % [place] saturation in Medical Arterial blood Center by Pulse oximetry Heart rate 71 /min 71 /min [facility] Diastolic blood 88 mm[Hg] 88 mm[Hg] [facility] pressure Medical Center Systolic blood 138 mm[Hg] 138 mm[Hg] [facility] [place] Body temperature 36.353746 Kaylie 36.516534 Kay[facility] Respiratory rate 18 /min 18 /min [facility] Oxygen 98 % 98 % [place] saturation in Medical Arterial blood Center by Pulse oximetry Heart rate 97 /min 97 /min [facility] Diastolic blood 90 mm[Hg] 90 mm[Hg] [facility] pressure Medical Center Systolic blood 156 mm[Hg] 156 mm[Hg] [facility] Body temperature 36.740584 Kaylie 36.952644 Kay[facility] Respiratory rate 18 /min 18 /min [facility] Oxygen 95 % 95 % [place] saturation in Medical Arterial blood Center by Pulse oximetry Heart rate 98 /min 98 /min [facility] Diastolic blood 93 mm[Hg] 93 mm[Hg] [facility] pressure Medical Center Systolic blood 163 mm[Hg] 163 mm[Hg] [facility] Body temperature 36.225278 Kaylie 36.766293 Kay[facility] Respiratory rate 18 /min 18 /min [facility] Oxygen 95 % 95 % [place] saturation in Medical Arterial blood Center by Pulse oximetry Heart rate 84 /min 84 /min [facility] Diastolic blood 83 mm[Hg] 83 mm[Hg] [facility] Systolic blood 130 mm[Hg] 130 mm[Hg] [facility] Body temperature 36.550717 Kaylie 36.645351 [facility] Respiratory rate 17 /min 17 /min [facility] Oxygen 96 % 96 % [place] saturation in Medical Arterial blood Center by Pulse oximetry Heart rate 81 /min 81 /min [facility] Diastolic blood 71 mm[Hg] 71 mm[Hg] [facility] [place] Systolic blood 118 mm[Hg] 118 mm[Hg] [facility] Body temperature 37.670759 Kaylie 37.591756 [facility] Respiratory rate 18 /min 18 /min [facility] Oxygen 91 % 91 % [place] saturation in Medical Arterial blood Center by Pulse oximetry Heart rate 107 /min 107 /min [facility] Diastolic blood 79 mm[Hg] 79 mm[Hg] [facility] [place] Systolic blood 144 mm[Hg] 144 mm[Hg] [facility] Body temperature 36.158236 Kaylie 36.632792 [facility] Respiratory rate 18 /min 18 /min [facility] Oxygen 90 % 90 % [place] saturation in Medical Arterial blood Center by Pulse oximetry Heart rate 96 /min 96 /min [facility] Diastolic blood 43 mm[Hg] 43 mm[Hg] [facility] Systolic blood 100 mm[Hg] 100 mm[Hg] [facility] Body temperature 36.411707 Kaylie 36.292582 [facility] Respiratory rate 18 /min 18 /min [facility] Oxygen 98 % 98 % [place] saturation in Medical Arterial blood Center by Pulse oximetry Heart rate 96 /min 96 /min [facility] Diastolic blood 80 mm[Hg] 80 mm[Hg] [facility] Systolic blood 132 mm[Hg] 132 mm[Hg] [facility] Body temperature 37.996627 Kaylie 37.565518 [facility] Respiratory rate 18 /min 18 /min [facility] Oxygen 97 % 97 % [place] saturation in Medical Arterial blood Center by Pulse oximetry Heart rate 98 /min 98 /min [facility] Diastolic blood 57 mm[Hg] 57 mm[Hg] [facility] pressure [facility] Center Systolic blood 141 mm[Hg] 141 mm[Hg] [facility] Body temperature 36.595192 Kaylie 36.175231 [facility] Respiratory rate 20 /min 20 /min [facility] Oxygen 97 % 97 % [place] saturation in Medical Arterial blood Center by Pulse oximetry Heart rate 100 /min 100 /min [facility] Diastolic blood 71 mm[Hg] 71 mm[Hg] [facility] pressure Medical Center Systolic blood 140 mm[Hg] 140 mm[Hg] [facility] Body temperature 36.967864 Kaylie 36.686496 [facility] Respiratory rate 18 /min 18 /min [facility] Oxygen 98 % 98 % [place] saturation in Medical Arterial blood Center by Pulse oximetry Heart rate 96 /min 96 /min [facility] Diastolic blood 67 mm[Hg] 67 mm[Hg] [facility] pressure [facility] Center Systolic blood 132 mm[Hg] 132 mm[Hg] [facility] Body temperature 36.877481 Kaylie 36.441404 [facility] Respiratory rate 17 /min 17 /min [facility] Oxygen 98 % 98 % [place] saturation in Medical Arterial blood Center by Pulse oximetry Heart rate 87 /min 87 /min [facility] Diastolic blood 71 mm[Hg] 71 mm[Hg] [facility] pressure [facility] Center Systolic blood 133 mm[Hg] 133 mm[Hg] [facility] Body temperature 36.235117 Kaylie 36.187332 [facility] Respiratory rate 17 /min 17 /min [facility] Oxygen 95 % 95 % [place] saturation in Medical Arterial blood Center by Pulse oximetry Heart rate 100 /min 100 /min [facility] Diastolic blood 78 mm[Hg] 78 mm[Hg] [place] [facility] Systolic blood 124 mm[Hg] 124 mm[Hg] [facility] Body temperature 36.865457 Kaylie 36.665852 [facility] Respiratory rate 19 /min 19 /min [facility] Oxygen 95 % 95 % [facility] [place] saturation in Medical Arterial blood Center by Pulse oximetry Heart rate 103 /min 103 /min [facility] Diastolic blood 65 mm[Hg] 65 mm[Hg] [facility] Systolic blood 126 mm[Hg] 126 mm[Hg] [facility] Body temperature 36.573206 Kaylie 36.268318 [facility] Respiratory rate 20 /min 20 /min [facility] Oxygen 94 % 94 % [facility] [place] saturation in Medical Arterial blood Center by Pulse oximetry Heart rate 105 /min 105 /min [facility] Diastolic blood 61 mm[Hg] 61 mm[Hg] [facility] [place] Systolic blood 122 mm[Hg] 122 mm[Hg] [facility] Body temperature 36.160949 Kaylie 36.113172 [facility] Respiratory rate 18 /min 18 /min [facility] Oxygen 97 % 97 % [place] saturation in Medical Arterial blood Center by Pulse oximetry Heart rate 97 /min 97 /min [facility] Diastolic blood 76 mm[Hg] 76 mm[Hg] [facility] [place] Systolic blood 132 mm[Hg] 132 mm[Hg] [facility] Body temperature 36.556242 Kaylie 36.723165 [facility] Respiratory rate 17 /min 17 /min [facility] Oxygen 98 % 98 % [place] saturation in Medical Arterial blood Center by Pulse oximetry Heart rate 75 /min 75 /min [facility] Diastolic blood 35 mm[Hg] 35 mm[Hg] [facility] Systolic blood 139 mm[Hg] 139 mm[Hg] [facility] Body temperature 36.957874 Kaylie 36.130581 [facility] Respiratory rate 17 /min 17 /min [facility] Oxygen 98 % 98 % [place] saturation in Medical Arterial blood Center by Pulse oximetry Heart rate 81 /min 81 /min [facility] Diastolic blood 83 mm[Hg] 83 mm[Hg] [facility] pressure Medical Center Systolic blood 135 mm[Hg] 135 mm[Hg] [facility] Body temperature 36.354306 Kaylie 36.501968 [facility] Respiratory rate 17 /min 17 /min [facility] Oxygen 97 % 97 % [facility] saturation in Medical Arterial blood Center by Pulse oximetry Heart rate 87 /min 87 /min [facility] Diastolic blood 57 mm[Hg] 57 mm[Hg] [facility] pressure Medical Center Systolic blood 92 mm[Hg] 92 mm[Hg] [facility] Body temperature 36.311164 Kaylie 36.868948 [facility] Respiratory rate 17 /min 17 /min [facility] Oxygen 98 % 98 % [facility] saturation in Medical Arterial blood Center by Pulse oximetry Heart rate 80 /min 80 /min [facility] Diastolic blood 78 mm[Hg] 78 mm[Hg] [facility] Systolic blood 123 mm[Hg] 123 mm[Hg] [facility] Body weight 95.966966 kg 95.044992 kg [facility] [place] Body temperature 36.893606 Kaylie 36.839317 [facility] Respiratory rate 17 /min 17 /min [facility] Oxygen 96 % 96 % [facility] saturation in Medical Arterial blood Center by Pulse oximetry Heart rate 90 /min 90 /min [facility] Body height 177.863451 cm 177.370067 cm [facility] Diastolic blood 73 mm[Hg] 73 mm[Hg] [facility] Systolic blood 132 mm[Hg] 132 mm[Hg] [facility] Body mass index 30.1 kg/m2 30.1 kg/m2 [facility] (BMI) [Ratio] Medical Center Body temperature 36.192379 Kaylie 36.350030 [facility] Respiratory rate 18 /min 18 /min [facility] Heart rate 88 /min 88 /min [facility] Diastolic blood 71 mm[Hg] 71 mm[Hg] [facility] pressure Medical Center Systolic blood 147 mm[Hg] 147 mm[Hg] [facility] Body temperature 36.557218 Kaylie 36.292877 [facility] Respiratory rate 20 /min 20 /min [facility] Heart rate 86 /min 86 /min [facility] Diastolic blood 89 mm[Hg] 89 mm[Hg] [facility] Systolic blood 145 mm[Hg] 145 mm[Hg] [facility] Body weight 114.185865 kg 114.090691 kg [facility] Body height 177.544227 cm 177.918386 cm [facility] Body mass index 36.06 kg/m2 36.06 kg/m2 [facility] (BMI) [Ratio] Medical Center Body temperature 37.584525 Kaylie 37.911646 [facility] Respiratory rate 18 /min 18 /min [facility] Heart rate 89 /min 89 /min [facility] Diastolic blood 73 mm[Hg] 73 mm[Hg] [facility] Systolic blood 120 mm[Hg] 120 mm[Hg] [facility] Body temperature 37.919348 Kaylie 37.975336 [facility] Respiratory rate 18 /min 18 /min [facility] Heart rate 90 /min 90 /min [facility] Diastolic blood 107 mm[Hg] 107 mm[Hg] [facility] Systolic blood 160 mm[Hg] 160 mm[Hg] [facility] Body temperature 37.180425 Kaylie 37.842469 [facility] Respiratory rate 18 /min 18 /min [facility] Heart rate 80 /min 80 /min [facility] Diastolic blood 68 mm[Hg] 68 mm[Hg] [facility] Systolic blood 128 mm[Hg] 128 mm[Hg] [facility] Body weight 114.301885 kg 114.270125 kg [facility] Body height 177.328488 cm 177.362593 cm [facility] Body mass index 36.06 kg/m2 36.06 kg/m2 [facility] (BMI) [Ratio] Medical Center Oxygen 95 % 95 % [facility] saturation in Medical Arterial blood Center by Pulse oximetry Body weight 114.010002 kg 114.398188 kg [facility] Measured Medical Center Body height 177.359014 cm 177.497514 cm [facility] Body mass index 36.06 kg/m2 36.06 kg/m2 [facility] (BMI) [Ratio] Medical Center Oxygen 95 % 95 % [facility] saturation in [facility] Arterial blood Center by Pulse oximetry Oxygen 95 % 95 % [facility] saturation in [facility] Arterial blood Center by Pulse oximetry Body height 177.047506 cm 177.924209 cm [facility] Body mass index 36.06 kg/m2 36.06 kg/m2 [facility] (BMI) [Ratio] Medical Center Body weight 114.699839 kg 114.958738 kg [facility] Measured [facility] Center Body weight 114.258616 kg 114.210773 kg [facility] Measured [facility] Body height 177.229322 cm 177.367125 cm [facility] Body mass index 36.06 kg/m2 36.06 kg/m2 [facility] (BMI) [Ratio] Medical Center Diastolic blood 86 mm[Hg] 86 mm[Hg] [facility] Systolic blood 146 mm[Hg] 146 mm[Hg] [facility] Body temperature 37.663445 Kaylie 37.242746 [facility] Body temperature 37.018461 Kaylie 37.055652 [facility] Respiratory rate 18 /min 18 /min [facility] Heart rate 94 /min 94 /min [facility] Diastolic blood 87 mm[Hg] 87 mm[Hg] [facility] Systolic blood 151 mm[Hg] 151 mm[Hg] [facility] Center Body weight 114.365460 kg 114.410269 kg [facility] Measured [facility] Center Body height 177.787788 cm 177.914697 cm [facility] Body mass index 36.06 kg/m2 36.06 kg/m2 [facility] (BMI) [Ratio] Medical Center Body weight 114.272626 kg 114.017689 kg [facility] Measured [facility] Center Body height 177.149121 cm 177.597721 cm [facility] Body mass index 36.06 kg/m2 36.06 kg/m2 [facility] (BMI) [Ratio] Medical Center Body weight 114.140440 kg 114.263266 kg [facility] Body temperature 37.585155 Kaylie 37.931493 [facility] Body temperature 36.132793 Kaylie 36.690883 [facility] Respiratory rate 18 /min 18 /min [facility] Respiratory rate 17 /min 17 /min [facility] Heart rate 84 /min 84 /min [facility] Heart rate 78 /min 78 /min [facility] Body height 177.620365 cm 177.803249 cm [facility] Diastolic blood 96 mm[Hg] 96 mm[Hg] [facility] pressure Medical Center Systolic blood 176 mm[Hg] 176 mm[Hg] [facility] Diastolic blood 96 mm[Hg] 96 mm[Hg] [facility] Systolic blood 149 mm[Hg] 149 mm[Hg] [facility] Center Body mass index 36.06 kg/m2 36.06 kg/m2 [facility] (BMI) [Ratio] Medical Center Oxygen 99 % 99 % [place] saturation in Medical Arterial blood Center by Pulse oximetry Body temperature 36.966603 Kaylie 36.061525 [facility] Respiratory rate 18 /min 18 /min [facility] Heart rate 80 /min 80 /min [facility] Diastolic blood 99 mm[Hg] 99 mm[Hg] [facility] Systolic blood 149 mm[Hg] 149 mm[Hg] [facility] Oxygen 99 % 99 % [place] saturation in Medical Arterial blood Center by Pulse oximetry Systolic blood 144 mm[Hg] 144 mm[Hg] [facility] Body temperature 36.538765 Kaylie 36.947097 [facility] Respiratory rate 17 /min 17 /min [facility] Oxygen 98 % 98 % [place] saturation in Medical Arterial blood Center by Pulse oximetry Heart rate 78 /min 78 /min [facility] Diastolic blood 94 mm[Hg] 94 mm[Hg] [facility] Center Respiratory rate 20 /min 20 /min [facility] Oxygen 96 % 96 % [place] saturation in Medical Arterial blood Center by Pulse oximetry Heart rate 88 /min 88 /min [facility] Oxygen 97 % 97 % [place] saturation in Medical Arterial blood Center by Pulse oximetry Body temperature 36.140766 Kaylie 36.232610 [facility] Respiratory rate 18 /min 18 /min [facility] Oxygen 98 % 98 % [place] saturation in Medical Arterial blood Center by Pulse oximetry Heart rate 87 /min 87 /min [facility] Diastolic blood 77 mm[Hg] 77 mm[Hg] [facility] Systolic blood 112 mm[Hg] 112 mm[Hg] [facility] Body temperature 36.385442 Kaylie 36.959174 [facility] Respiratory rate 17 /min 17 /min [facility] Oxygen 98 % 98 % [place] saturation in Medical Arterial blood Center by Pulse oximetry Heart rate 81 /min 81 /min [facility] Diastolic blood 67 mm[Hg] 67 mm[Hg] [facility] Systolic blood 132 mm[Hg] 132 mm[Hg] [facility] Body temperature 37.506848 Kaylie 37.001507 [facility] Respiratory rate 16 /min 16 /min [facility] Oxygen 98 % 98 % [place] saturation in Medical Arterial blood Center by Pulse oximetry Heart rate 78 /min 78 /min [facility] Diastolic blood 65 mm[Hg] 65 mm[Hg] [facility] Systolic blood 136 mm[Hg] 136 mm[Hg] [facility] Body temperature 36.474837 Kaylie 36.973640 [facility] Respiratory rate 17 /min 17 /min [facility] Oxygen 96 % 96 % [place] saturation in Medical Arterial blood Center by Pulse oximetry Heart rate 86 /min 86 /min [facility] Diastolic blood 73 mm[Hg] 73 mm[Hg] [facility] Systolic blood 142 mm[Hg] 142 mm[Hg] [facility] Body temperature 36.298657 Kaylie 36.978285 [facility] Respiratory rate 17 /min 17 /min [facility] Heart rate 79 /min 79 /min [facility] Diastolic blood 87 mm[Hg] 87 mm[Hg] [facility] Systolic blood 138 mm[Hg] 138 mm[Hg] [facility] Body temperature 37.837343 Kaylie 37.888486 [facility] Respiratory rate 17 /min 17 /min [facility] Heart rate 99 /min 99 /min [facility] Diastolic blood 99 mm[Hg] 99 mm[Hg] [facility] pressure Medical Center Systolic blood 147 mm[Hg] 147 mm[Hg] [facility] Oxygen 97 % 97 % [place] saturation in Medical Arterial blood Center by Pulse oximetry Body temperature 36.008332 Kaylie 36.908221 [facility] Respiratory rate 18 /min 18 /min [facility] Oxygen 96 % 96 % [place] saturation in Medical Arterial blood Center by Pulse oximetry Heart rate 78 /min 78 /min [facility] Diastolic blood 78 mm[Hg] 78 mm[Hg] [facility] pressure Medical Center Systolic blood 138 mm[Hg] 138 mm[Hg] [facility] Body temperature 35.464020 Kaylie 35.839661 [facility] Respiratory rate 17 /min 17 /min [facility] Oxygen 98 % 98 % [place] saturation in Medical Arterial blood Center by Pulse oximetry Heart rate 77 /min 77 /min [facility] Diastolic blood 79 mm[Hg] 79 mm[Hg] [facility] [place] Systolic blood 143 mm[Hg] 143 mm[Hg] [facility] Body temperature 36.138369 Kaylie 36.189676 [facility] Respiratory rate 16 /min 16 /min [facility] Heart rate 81 /min 81 /min [facility] Diastolic blood 76 mm[Hg] 76 mm[Hg] [facility] pressure Medical Center Systolic blood 138 mm[Hg] 138 mm[Hg] [facility] Body temperature 36.071819 Kaylie 36.044324 [facility] Respiratory rate 17 /min 17 /min [facility] Oxygen 97 % 97 % [place] saturation in Medical Arterial blood Center by Pulse oximetry Heart rate 85 /min 85 /min [facility] Diastolic blood 67 mm[Hg] 67 mm[Hg] [facility] Systolic blood 132 mm[Hg] 132 mm[Hg] [facility] Body temperature 36.489004 Kaylie 36.220906 [facility] Respiratory rate 17 /min 17 /min [facility] Oxygen 94 % 94 % [facility] saturation in Medical Arterial blood Center by Pulse oximetry Heart rate 70 /min 70 /min [facility] Diastolic blood 72 mm[Hg] 72 mm[Hg] [facility] Systolic blood 125 mm[Hg] 125 mm[Hg] [facility] Body temperature 36.601617 Kaylie 36.036443 [facility] Respiratory rate 18 /min 18 /min [facility] Heart rate 88 /min 88 /min [facility] Diastolic blood 69 mm[Hg] 69 mm[Hg] [facility] [place] Systolic blood 134 mm[Hg] 134 mm[Hg] [facility] Body temperature 36.570305 Kaylie 36.324106 [facility] Respiratory rate 19 /min 19 /min [facility] Oxygen 96 % 96 % [facility] saturation in Medical Arterial blood Center by Pulse oximetry Heart rate 87 /min 87 /min [facility] Diastolic blood 71 mm[Hg] 71 mm[Hg] [facility] Systolic blood 123 mm[Hg] 123 mm[Hg] [facility] Body weight 104.363801 kg 104.712789 kg [facility] Body temperature 36.670523 Kaylie 36.448163 [facility] Respiratory rate 17 /min 17 /min [facility] Oxygen 95 % 95 % [facility] saturation in Medical Arterial blood Center by Pulse oximetry Heart rate 89 /min 89 /min [facility] Body height 177.815205 cm 177.297969 cm [facility] Diastolic blood 69 mm[Hg] 69 mm[Hg] [facility] Systolic blood 127 mm[Hg] 127 mm[Hg] [facility] Body mass index 33.0 kg/m2 33.0 kg/m2 [facility] (BMI) [Ratio] Medical Center Body temperature 36.831904 Kaylie 36.127530 [facility] Respiratory rate 19 /min 19 /min [facility] Heart rate 81 /min 81 /min [facility] Diastolic blood 88 mm[Hg] 88 mm[Hg] [facility] [place] Systolic blood 136 mm[Hg] 136 mm[Hg] [facility] Body temperature 36.749627 Kaylie 36.869468 [facility] Respiratory rate 18 /min 18 /min [facility] Heart rate 92 /min 92 /min [facility] Diastolic blood 98 mm[Hg] 98 mm[Hg] [facility] [place] Systolic blood 148 mm[Hg] 148 mm[Hg] [facility] Body temperature 36.246835 Kaylie 36.351532 [facility] Respiratory rate 19 /min 19 /min [facility] Oxygen 100 % 100 % [place] saturation in Medical Arterial blood Center by Pulse oximetry Heart rate 100 /min 100 /min [facility] Diastolic blood 61 mm[Hg] 61 mm[Hg] [facility] [place] Systolic blood 126 mm[Hg] 126 mm[Hg] [facility] Body temperature 36.399045 Kaylie 36.762668 [facility] Respiratory rate 17 /min 17 /min [facility] Oxygen 96 % 96 % [place] saturation in Medical Arterial blood Center by Pulse oximetry Heart rate 78 /min 78 /min [facility] Diastolic blood 89 mm[Hg] 89 mm[Hg] [facility] [place] Systolic blood 146 mm[Hg] 146 mm[Hg] [facility] Body temperature 36.901555 Kaylie 36.978898 [facility] Respiratory rate 17 /min 17 /min [facility] Oxygen 98 % 98 % [place] saturation in Medical Arterial blood Center by Pulse oximetry Heart rate 90 /min 90 /min [facility] Diastolic blood 63 mm[Hg] 63 mm[Hg] [facility] Systolic blood 145 mm[Hg] 145 mm[Hg] [facility] Respiratory rate 18 /min 18 /min [facility] Oxygen 99 % 99 % [place] saturation in Medical Arterial blood Center by Pulse oximetry Heart rate 78 /min 78 /min [facility] Diastolic blood 84 mm[Hg] 84 mm[Hg] [facility] pressure Medical Center Systolic blood 132 mm[Hg] 132 mm[Hg] [facility] Body temperature 36.407303 Kaylie 36.330301 [facility] Body weight 110.731497 kg 110.258560 kg [facility] Body temperature 36.295441 Kaylie 36.212388 [facility] Respiratory rate 18 /min 18 /min [facility] Oxygen 98 % 98 % [place] saturation in Medical Arterial blood Center by Pulse oximetry Heart rate 89 /min 89 /min [facility] Body height 180.024478 cm 180.794833 cm [facility] Diastolic blood 88 mm[Hg] 88 mm[Hg] [facility] Center Systolic blood 154 mm[Hg] 154 mm[Hg] [facility] Body mass index 33.8 kg/m2 33.8 kg/m2 [facility] (BMI) [Ratio] Medical Center Body temperature 36.987450 Kaylie 36.943304 [facility] Respiratory rate 17 /min 17 /min [facility] Oxygen 99 % 99 % [place] saturation in Medical Arterial blood Center by Pulse oximetry Heart rate 81 /min 81 /min [facility] Diastolic blood 71 mm[Hg] 71 mm[Hg] [facility] Systolic blood 118 mm[Hg] 118 mm[Hg] [facility] Body temperature 36.611075 Kaylie 36.617910 [facility] Respiratory rate 18 /min 18 /min [facility] Oxygen 99 % 99 % [place] saturation in Medical Arterial blood Center by Pulse oximetry Heart rate 78 /min 78 /min [facility] Diastolic blood 77 mm[Hg] 77 mm[Hg] [facility] Systolic blood 129 mm[Hg] 129 mm[Hg] [facility] Body temperature 37.031742 Kaylie 37.214386 [facility] Respiratory rate 17 /min 17 /min [facility] Oxygen 97 % 97 % [place] saturation in Medical Arterial blood Center by Pulse oximetry Heart rate 79 /min 79 /min [facility] Diastolic blood 75 mm[Hg] 75 mm[Hg] [facility] pressure Medical Center Systolic blood 136 mm[Hg] 136 mm[Hg] [facility] Body temperature 36.395387 Kaylie 36.994078 [facility] Respiratory rate 17 /min 17 /min [facility] Oxygen 98 % 98 % [place] saturation in Medical Arterial blood Center by Pulse oximetry Heart rate 88 /min 88 /min [facility] Diastolic blood 81 mm[Hg] 81 mm[Hg] [facility] [place] Systolic blood 159 mm[Hg] 159 mm[Hg] [facility] Body temperature 36.893933 Kaylie 36.595809 [facility] Respiratory rate 18 /min 18 /min [facility] Oxygen 97 % 97 % [place] saturation in Medical Arterial blood Center by Pulse oximetry Heart rate 88 /min 88 /min [facility] Diastolic blood 75 mm[Hg] 75 mm[Hg] [facility] [place] Systolic blood 145 mm[Hg] 145 mm[Hg] [facility] Body temperature 36.937800 Kaylie 36.466793 [facility] Respiratory rate 17 /min 17 /min [facility] Oxygen 97 % 97 % [place] saturation in Medical Arterial blood Center by Pulse oximetry Heart rate 90 /min 90 /min [facility] Diastolic blood 78 mm[Hg] 78 mm[Hg] [facility] Systolic blood 160 mm[Hg] 160 mm[Hg] [facility] Body temperature 37.624976 Kaylie 37.225167 [facility] Respiratory rate 18 /min 18 /min [facility] Oxygen 95 % 95 % [place] saturation in Medical Arterial blood Center by Pulse oximetry Heart rate 93 /min 93 /min [facility] Diastolic blood 80 mm[Hg] 80 mm[Hg] [facility] Systolic blood 198 mm[Hg] 198 mm[Hg] [facility] Body temperature 37.232900 Kaylie 37.142074 [facility] Respiratory rate 18 /min 18 /min [facility] Oxygen 95 % 95 % [place] saturation in [facility] by Pulse oximetry Heart rate 92 /min 92 /min [facility] Diastolic blood 71 mm[Hg] 71 mm[Hg] [facility] pressure Medical Center Systolic blood 139 mm[Hg] 139 mm[Hg] [facility] Body temperature 36.449591 Kaylie 36.314418 [facility] Respiratory rate 17 /min 17 /min [facility] Oxygen 98 % 98 % [place] saturation in Medical Arterial blood Center by Pulse oximetry Heart rate 89 /min 89 /min [facility] Diastolic blood 83 mm[Hg] 83 mm[Hg] [facility] Systolic blood 159 mm[Hg] 159 mm[Hg] [facility] Body temperature 36.108450 Kaylie 36.981596 [facility] Respiratory rate 18 /min 18 /min [facility] Oxygen 97 % 97 % [place] saturation in Medical Arterial blood Center by Pulse oximetry Heart rate 81 /min 81 /min [facility] Diastolic blood 74 mm[Hg] 74 mm[Hg] [facility] [place] Systolic blood 117 mm[Hg] 117 mm[Hg] [facility] Body temperature 37.174777 Kaylie 37.584484 [facility] Respiratory rate 19 /min 19 /min [facility] Oxygen 98 % 98 % [place] saturation in Medical Arterial blood Center by Pulse oximetry Heart rate 88 /min 88 /min [facility] Diastolic blood 87 mm[Hg] 87 mm[Hg] [facility] Systolic blood 149 mm[Hg] 149 mm[Hg] [facility] Body temperature 37.061319 Kaylie 37.865696 [facility] Respiratory rate 20 /min 20 /min [facility] Oxygen 97 % 97 % [place] saturation in Medical Arterial blood Center by Pulse oximetry Heart rate 92 /min 92 /min [facility] Diastolic blood 85 mm[Hg] 85 mm[Hg] [facility] [place] Systolic blood 152 mm[Hg] 152 mm[Hg] [facility] Body temperature 36.713134 Kaylie 36.817468 [facility] Respiratory rate 18 /min 18 /min [facility] Oxygen 100 % 100 % [place] saturation in Medical Arter[facility] blood Center by Pulse oximetry Heart rate 70 /min 70 /min [facility] Diastolic blood 74 mm[Hg] 74 mm[Hg] [facility] pressure Medical Center Systolic blood 129 mm[Hg] 129 mm[Hg] [facility] Body weight 99.862803 kg 99.338598 kg [facility] Body temperature 36.900729 Kaylie 36.287936 [facility] Respiratory rate 18 /min 18 /min [facility] Oxygen 98 % 98 % [place] saturation in Medical Arterial blood Center by Pulse oximetry Heart rate 78 /min 78 /min [facility] Body height 182.064289 cm 182.186437 cm [facility] Diastolic blood 74 mm[Hg] 74 mm[Hg] [facility] pressure Medical Center Systolic blood 128 mm[Hg] 128 mm[Hg] [facility] Body mass index 29.8 kg/m2 29.8 kg/m2 [facility] (BMI) [Ratio] Medical Center Body temperature 36.213024 Kaylie 36.850453 [facility] Respiratory rate 20 /min 20 /min [facility] Oxygen 94 % 94 % [place] saturation in [facility] Arter[facility] blood Center by Pulse oximetry Heart rate 92 /min 92 /min [facility] Diastolic blood 87 mm[Hg] 87 mm[Hg] [facility] pressure Medical Center Systolic blood 143 mm[Hg] 143 mm[Hg] [facility] Body temperature 36.727649 Kaylie 36.030902 [facility] Respiratory rate 18 /min 18 /min [facility] Oxygen 96 % 96 % [place] saturation in Medical Arterial blood Center by Pulse oximetry Heart rate 87 /min 87 /min [facility] Diastolic blood 84 mm[Hg] 84 mm[Hg] [facility] pressure [facility] Center Systolic blood 136 mm[Hg] 136 mm[Hg] [facility] Body temperature 37.946454 Kaylie 37.840839 [facility] Respiratory rate 18 /min 18 /min [facility] Oxygen 96 % 96 % [place] saturation in Medical Arterial blood Center by Pulse oximetry Heart rate 90 /min 90 /min [facility] Diastolic blood 63 mm[Hg] 63 mm[Hg] [facility] pressure Medical Center Systolic blood 136 mm[Hg] 136 mm[Hg] [facility] Body temperature 36.532907 Kaylie 36.607660 [facility] Respiratory rate 18 /min 18 /min [facility] Oxygen 96 % 96 % [place] saturation in [facility] Arterial blood Center by Pulse oximetry Heart rate 109 /min 109 /min [facility] Diastolic blood 71 mm[Hg] 71 mm[Hg] [facility] pressure Medical Center Systolic blood 130 mm[Hg] 130 mm[Hg] [facility] Body temperature 36.481464 Kaylie 36.153587 [facility] Respiratory rate 18 /min 18 /min [facility] Heart rate 132 /min 132 /min [facility] Diastolic blood 76 mm[Hg] 76 mm[Hg] [facility] pressure Medical Center Systolic blood 137 mm[Hg] 137 mm[Hg] [facility] [place] Body temperature 36.360950 Kaylie 36.643797 [facility] Respiratory rate 17 /min 17 /min [facility] Oxygen 97 % 97 % [place] saturation in Medical Arterial blood Center by Pulse oximetry Heart rate 104 /min 104 /min [facility] Diastolic blood 81 mm[Hg] 81 mm[Hg] [facility] Systolic blood 143 mm[Hg] 143 mm[Hg] [facility] [place] Body temperature 36.424107 Kaylie 36.050681 [facility] Respiratory rate 19 /min 19 /min [facility] Oxygen 95 % 95 % [place] saturation in Medical Arterial blood Center by Pulse oximetry Heart rate 92 /min 92 /min [facility] Diastolic blood 96 mm[Hg] 96 mm[Hg] [facility] pressure Medical Center Systolic blood 155 mm[Hg] 155 mm[Hg] [facility] [place] Body temperature 37.212845 Kaylie 37.519484 [facility] Respiratory rate 18 /min 18 /min [facility] Oxygen 95 % 95 % [place] saturation in Medical Arter[facility] blood Center by Pulse oximetry Heart rate 104 /min 104 /min [facility] Diastolic blood 78 mm[Hg] 78 mm[Hg] [facility] pressure Medical Center Systolic blood 155 mm[Hg] 155 mm[Hg] [facility] [place] Body temperature 36.711927 Kaylie 36.542907 [facility] Respiratory rate 17 /min 17 /min [facility] Heart rate 95 /min 95 /min [facility] Diastolic blood 93 mm[Hg] 93 mm[Hg] [facility] pressure Medical Center Systolic blood 156 mm[Hg] 156 mm[Hg] [facility] [place] Body temperature 36.717278 Kaylie 36.420799 [facility] Respiratory rate 18 /min 18 /min [facility] Oxygen 98 % 98 % [place] saturation in Medical Arterial blood Center by Pulse oximetry Heart rate 98 /min 98 /min [facility] Diastolic blood 94 mm[Hg] 94 mm[Hg] [facility] pressure Medical Center Systolic blood 156 mm[Hg] 156 mm[Hg] [facility] Body temperature 36.539945 Kaylie 36.070387 Kay[facility] Respiratory rate 18 /min 18 /min [facility] Oxygen 98 % 98 % [place] saturation in Medical Arterial blood Center by Pulse oximetry Heart rate 91 /min 91 /min [facility] Diastolic blood 96 mm[Hg] 96 mm[Hg] [facility] Systolic blood 146 mm[Hg] 146 mm[Hg] [facility] [place] Respiratory rate 16 /min 16 /min [facility] Oxygen 95 % 95 % [place] saturation in Medical Arterial blood Center by Pulse oximetry Heart rate 101 /min 101 /min [facility] Diastolic blood 93 mm[Hg] 93 mm[Hg] [facility] pressure Medical Center Systolic blood 152 mm[Hg] 152 mm[Hg] [facility] [place] Body temperature 36.919063 Kaylie 36.207223 [facility] Respiratory rate 18 /min 18 /min [facility] Oxygen 96 % 96 % [place] saturation in Medical Arterial blood Center by Pulse oximetry Heart rate 99 /min 99 /min [facility] Diastolic blood 95 mm[Hg] 95 mm[Hg] [facility] [place] Systolic blood 182 mm[Hg] 182 mm[Hg] [facility] Body temperature 37.062122 Kaylie 37.374763 [facility] Respiratory rate 16 /min 16 /min [facility] Oxygen 95 % 95 % [place] saturation in Medical Arterial blood Center by Pulse oximetry Heart rate 105 /min 105 /min [facility] Diastolic blood 102 mm[Hg] 102 mm[Hg] [facility] Systolic blood 154 mm[Hg] 154 mm[Hg] [facility] Body temperature 37.077318 Kaylie 37.099993 [facility] Respiratory rate 19 /min 19 /min [facility] Oxygen 95 % 95 % [place] saturation in Medical Arterial blood Center by Pulse oximetry Heart rate 99 /min 99 /min [facility] Diastolic blood 99 mm[Hg] 99 mm[Hg] [facility] [place] Systolic blood 175 mm[Hg] 175 mm[Hg] [facility] Body temperature 36.264371 Kaylie 36.775480 [facility] Respiratory rate 19 /min 19 /min [facility] Oxygen 97 % 97 % [place] saturation in Medical Arterial blood Center by Pulse oximetry Heart rate 89 /min 89 /min [facility] Diastolic blood 93 mm[Hg] 93 mm[Hg] [facility] [place] Systolic blood 155 mm[Hg] 155 mm[Hg] [facility] Body temperature 36.141297 Kaylie 36.139868 [facility] Body temperature 36.671839 Kaylie 36.898887 [facility] Respiratory rate 18 /min 18 /min [facility] Oxygen 97 % 97 % [place] saturation in Medical Arterial blood Center by Pulse oximetry Heart rate 76 /min 76 /min [facility] Diastolic blood 72 mm[Hg] 72 mm[Hg] [facility] [place] Systolic blood 138 mm[Hg] 138 mm[Hg] [facility] Body temperature 36.122717 Kaylie 36.931895 [facility] Respiratory rate 17 /min 17 /min [facility] Oxygen 96 % 96 % [place] saturation in Medical Arterial blood Center by Pulse oximetry Heart rate 78 /min 78 /min [facility] Diastolic blood 69 mm[Hg] 69 mm[Hg] [facility] pressure Medical Center Systolic blood 142 mm[Hg] 142 mm[Hg] [facility] Body temperature 36.552601 Kaylie 36.948180 [facility] Respiratory rate 18 /min 18 /min [facility] Oxygen 97 % 97 % [place] saturation in Medical Arterial blood Center by Pulse oximetry Heart rate 83 /min 83 /min [facility] Diastolic blood 81 mm[Hg] 81 mm[Hg] [facility] Systolic blood 159 mm[Hg] 159 mm[Hg] [facility] Body temperature 36.176649 Kaylie 36.223762 [facility] Respiratory rate 18 /min 18 /min [facility] Oxygen 94 % 94 % [place] saturation in Medical Arterial blood Center by Pulse oximetry Heart rate 89 /min 89 /min [facility] Diastolic blood 89 mm[Hg] 89 mm[Hg] [facility] [place] Systolic blood 139 mm[Hg] 139 mm[Hg] [facility] Body temperature 36.373371 Kaylie 36.406389 Kay[facility] Respiratory rate 19 /min 19 /min [facility] Oxygen 95 % 95 % [place] saturation in Medical Arterial blood Center by Pulse oximetry Heart rate 88 /min 88 /min [facility] Diastolic blood 82 mm[Hg] 82 mm[Hg] [facility] Systolic blood 156 mm[Hg] 156 mm[Hg] [facility] [place] Body temperature 36.035026 Kaylie 36.055491 [facility] Respiratory rate 18 /min 18 /min [facility] Oxygen 98 % 98 % [place] saturation in Medical Arterial blood Center by Pulse oximetry Heart rate 74 /min 74 /min [facility] Diastolic blood 78 mm[Hg] 78 mm[Hg] [facility] Systolic blood 128 mm[Hg] 128 mm[Hg] [facility] [place] Body temperature 36.937821 Kaylie 36.581171 [facility] Respiratory rate 17 /min 17 /min [facility] Oxygen 99 % 99 % [place] saturation in Medical Arterial blood Center by Pulse oximetry Heart rate 80 /min 80 /min [facility] Diastolic blood 92 mm[Hg] 92 mm[Hg] [facility] pressure Medical Center Systolic blood 144 mm[Hg] 144 mm[Hg] [facility] Body weight 88.111419 kg 88.960023 kg [facility] Body temperature 36.474988 Kaylie 36.693159 [facility] Respiratory rate 17 /min 17 /min [facility] Oxygen 99 % 99 % [place] saturation in Medical Arterial blood Center by Pulse oximetry Heart rate 78 /min 78 /min [facility] Body height 177.983735 cm 177.912570 cm [facility] Diastolic blood 88 mm[Hg] 88 mm[Hg] [facility] pressure Medical Center Systolic blood 142 mm[Hg] 142 mm[Hg] [facility] Body mass index 27.8 kg/m2 27.8 kg/m2 [facility] (BMI) [Ratio] Medical Center Body temperature 37.100378 Kaylie 37.858268 [facility] Respiratory rate 18 /min 18 /min [facility] Oxygen 96 % 96 % [place] saturation in Medical Arterial blood Center by Pulse oximetry Heart rate 97 /min 97 /min [facility] Diastolic blood 95 mm[Hg] 95 mm[Hg] [facility] pressure Medical Center Systolic blood 157 mm[Hg] 157 mm[Hg] [facility] Body temperature 37.010607 Kaylie 37.999951 Kay[facility] Respiratory rate 18 /min 18 /min [facility] Oxygen 95 % 95 % [place] saturation in Medical Arterial blood Center by Pulse oximetry Heart rate 99 /min 99 /min [facility] Diastolic blood 81 mm[Hg] 81 mm[Hg] [facility] pressure Medical Center Systolic blood 121 mm[Hg] 121 mm[Hg] [facility] Body temperature 36.004710 Kaylie 36.831324 Kaylie [facility] Respiratory rate 18 /min 18 /min [facility] Oxygen 97 % 97 % [place] saturation in Medical Arterial blood Center by Pulse oximetry Heart rate 89 /min 89 /min [facility] Diastolic blood 70 mm[Hg] 70 mm[Hg] [facility] pressure Medical Center Systolic blood 126 mm[Hg] 126 mm[Hg] [facility] Body weight 104.716314 kg 104.368281 kg [facility] Body temperature 36.064645 Kaylie 36.426380 Kay[facility] Respiratory rate 17 /min 17 /min [facility] Oxygen 98 % 98 % [place] saturation in Medical Arterial blood Center by Pulse oximetry Heart rate 98 /min 98 /min [facility] Body height 177.506428 cm 177.638423 cm [facility] Diastolic blood 60 mm[Hg] 60 mm[Hg] [facility] pressure [facility] Center Systolic blood 116 mm[Hg] 116 mm[Hg] [facility] Body mass index 33.0 kg/m2 33.0 kg/m2 [facility] (BMI) [Ratio] Medical Center Body temperature 36.649175 Kaylie 36.649778 [facility] Respiratory rate 17 /min 17 /min [facility] Oxygen 98 % 98 % [place] saturation in Medical Arterial blood Center by Pulse oximetry Heart rate 84 /min 84 /min [facility] Diastolic blood 91 mm[Hg] 91 mm[Hg] [facility] Systolic blood 153 mm[Hg] 153 mm[Hg] [facility] Body temperature 36.834824 Kaylie 36.653436 [facility] Respiratory rate 16 /min 16 /min [facility] Heart rate 75 /min 75 /min [facility] Diastolic blood 76 mm[Hg] 76 mm[Hg] [facility] Systolic blood 136 mm[Hg] 136 mm[Hg] [facility] Body temperature 36.916604 Kaylie 36.348381 [facility] Respiratory rate 17 /min 17 /min [facility] Oxygen 98 % 98 % [place] saturation in Medical Arterial blood Center by Pulse oximetry Heart rate 76 /min 76 /min [facility] Diastolic blood 81 mm[Hg] 81 mm[Hg] [facility] Systolic blood 149 mm[Hg] 149 mm[Hg] [facility] Body temperature 36.426150 Kaylie 36.371453 [facility] Respiratory rate 18 /min 18 /min [facility] Oxygen 96 % 96 % [place] saturation in Medical Arterial blood Center by Pulse oximetry Heart rate 89 /min 89 /min [facility] Diastolic blood 68 mm[Hg] 68 mm[Hg] [facility] pressure [facility] Center Systolic blood 132 mm[Hg] 132 mm[Hg] [facility] Body temperature 36.833136 Kaylie 36.793258 [facility] Respiratory rate 18 /min 18 /min [facility] Oxygen 96 % 96 % [place] saturation in Medical Arterial blood Center by Pulse oximetry Heart rate 84 /min 84 /min [facility] Diastolic blood 71 mm[Hg] 71 mm[Hg] [facility] [place] Systolic blood 119 mm[Hg] 119 mm[Hg] [facility] Body temperature 36.983722 Kaylie 36.195212 [facility] Respiratory rate 19 /min 19 /min [facility] Oxygen 96 % 96 % [place] saturation in Medical Arterial blood Center by Pulse oximetry Heart rate 83 /min 83 /min [facility] Diastolic blood 66 mm[Hg] 66 mm[Hg] [facility] [place] Systolic blood 123 mm[Hg] 123 mm[Hg] [facility] Body temperature 36.517167 Kaylie 36.893190 [facility] Respiratory rate 18 /min 18 /min [facility] Oxygen 98 % 98 % [place] saturation in Medical Arterial blood Center by Pulse oximetry Heart rate 76 /min 76 /min [facility] Diastolic blood 80 mm[Hg] 80 mm[Hg] [facility] Systolic blood 115 mm[Hg] 115 mm[Hg] [facility] Body temperature 36.638375 Kaylie 36.612974 [facility] Body temperature 36.724664 Kaylie 36.877112 [facility] Respiratory rate 18 /min 18 /min [facility] Oxygen 96 % 96 % [place] saturation in Medical Arterial blood Center by Pulse oximetry Heart rate 88 /min 88 /min [facility] Diastolic blood 72 mm[Hg] 72 mm[Hg] [facility] Systolic blood 111 mm[Hg] 111 mm[Hg] [facility] Body temperature 36.821541 Kaylie 36.834278 [facility] Respiratory rate 18 /min 18 /min [facility] Oxygen 96 % 96 % [place] saturation in Medical Arterial blood Center by Pulse oximetry Heart rate 87 /min 87 /min [facility] Diastolic blood 85 mm[Hg] 85 mm[Hg] [facility] [place] Systolic blood 136 mm[Hg] 136 mm[Hg] [facility] Body temperature 36.482478 Kaylie 36.657610 [facility] Respiratory rate 17 /min 17 /min [facility] Oxygen 91 % 91 % [place] saturation in Medical Arterial blood Center by Pulse oximetry Heart rate 87 /min 87 /min [facility] Diastolic blood 97 mm[Hg] 97 mm[Hg] [facility] [place] Systolic blood 152 mm[Hg] 152 mm[Hg] [facility] Body temperature 36.596909 Kaylie 36.612357 [facility] Respiratory rate 20 /min 20 /min [facility] Oxygen 91 % 91 % [place] saturation in Medical Arterial blood Center by Pulse oximetry Heart rate 77 /min 77 /min [facility] Diastolic blood 78 mm[Hg] 78 mm[Hg] [facility] [place] Systolic blood 140 mm[Hg] 140 mm[Hg] [facility] Body weight 105.018259 kg 105.467576 kg [facility] Body temperature 37.353263 Kaylie 37.947383 [facility] Respiratory rate 20 /min 20 /min [facility] Oxygen 92 % 92 % [place] saturation in Medical Arterial blood Center by Pulse oximetry Heart rate 89 /min 89 /min [facility] Diastolic blood 79 mm[Hg] 79 mm[Hg] [facility] [place] Systolic blood 155 mm[Hg] 155 mm[Hg] [facility] Body temperature 36.875560 Kaylie 36.421681 [facility] Respiratory rate 16 /min 16 /min [facility] Oxygen 98 % 98 % [place] saturation in Medical Arterial blood Center by Pulse oximetry Heart rate 81 /min 81 /min [facility] Diastolic blood 73 mm[Hg] 73 mm[Hg] [facility] Systolic blood 126 mm[Hg] 126 mm[Hg] [facility] Body temperature 36.630652 Kaylie 36.797287 [facility] Respiratory rate 17 /min 17 /min [facility] Oxygen 98 % 98 % [place] saturation in Medical Arterial blood Center by Pulse oximetry Heart rate 67 /min 67 /min [facility] Diastolic blood 63 mm[Hg] 63 mm[Hg] [facility] Systolic blood 134 mm[Hg] 134 mm[Hg] [facility] [place] Body temperature 36.352387 Kaylie 36.924694 [facility] Respiratory rate 18 /min 18 /min [facility] Oxygen 97 % 97 % [place] saturation in Medical Arterial blood Center by Pulse oximetry Heart rate 69 /min 69 /min [facility] Diastolic blood 73 mm[Hg] 73 mm[Hg] [facility] [facility] Systolic blood 119 mm[Hg] 119 mm[Hg] [facility] Body temperature 36.475125 Kaylie 36.347009 [facility] Respiratory rate 17 /min 17 /min [facility] Oxygen 98 % 98 % [place] saturation in Medical Arterial blood Center by Pulse oximetry Heart rate 71 /min 71 /min [facility] Diastolic blood 69 mm[Hg] 69 mm[Hg] [facility] Systolic blood 127 mm[Hg] 127 mm[Hg] [facility] Body temperature 36.508759 Kaylie 36.083642 [facility] Respiratory rate 16 /min 16 /min [facility] Oxygen 100 % 100 % [place] saturation in Medical Arterial blood Center by Pulse oximetry Heart rate 74 /min 74 /min [facility] Diastolic blood 85 mm[Hg] 85 mm[Hg] [facility] pressure Medical Center Systolic blood 130 mm[Hg] 130 mm[Hg] [facility] Body temperature 37.998493 Kaylie 37.353308 [facility] Respiratory rate 18 /min 18 /min [facility] Oxygen 95 % 95 % [facility] [place] saturation in Medical Arterial blood Center by Pulse oximetry Heart rate 77 /min 77 /min [facility] Diastolic blood 86 mm[Hg] 86 mm[Hg] [facility] Medical Center Systolic blood 154 mm[Hg] 154 mm[Hg] [facility] Body temperature 36.861028 Kaylie 36.642693 [facility] Respiratory rate 18 /min 18 /min [facility] Oxygen 98 % 98 % [place] saturation in Medical Arterial blood Center by Pulse oximetry Heart rate 80 /min 80 /min [facility] Diastolic blood 90 mm[Hg] 90 mm[Hg] [facility] Medical Center Systolic blood 170 mm[Hg] 170 mm[Hg] [facility] Body temperature 36.626932 Kaylie 36.940567 [facility] Respiratory rate 18 /min 18 /min [facility] Oxygen 95 % 95 % [place] saturation in Medical Arterial blood Center by Pulse oximetry Heart rate 70 /min 70 /min [facility] Diastolic blood 103 mm[Hg] 103 mm[Hg] [facility] Medical Center Systolic blood 166 mm[Hg] 166 mm[Hg] [facility] [place] Body temperature 36.495016 Kaylie 36.347222 [facility] Respiratory rate 18 /min 18 /min [facility] Oxygen 97 % 97 % [place] saturation in Medical Arterial blood Center by Pulse oximetry Heart rate 87 /min 87 /min [facility] Diastolic blood 72 mm[Hg] 72 mm[Hg] [facility] Center Systolic blood 138 mm[Hg] 138 mm[Hg] [facility] Body temperature 36.758672 Kaylie 36.528001 [facility] Respiratory rate 16 /min 16 /min [facility] Oxygen 98 % 98 % [place] saturation in Medical Arterial blood Center by Pulse oximetry Heart rate 74 /min 74 /min [facility] Diastolic blood 71 mm[Hg] 71 mm[Hg] [facility] Medical Center Systolic blood 146 mm[Hg] 146 mm[Hg] [facility] Body weight 102.296194 kg 102.843850 kg [facility] Body temperature 36.720934 Kaylie 36.280050 [facility] Respiratory rate 17 /min 17 /min [facility] Oxygen 98 % 98 % [place] saturation in Medical Arterial blood Center by Pulse oximetry Heart rate 78 /min 78 /min [facility] Body height 177.077864 cm 177.456980 cm [facility] Diastolic blood 78 mm[Hg] 78 mm[Hg] [facility] Medical Center Systolic blood 118 mm[Hg] 118 mm[Hg] [facility] Body mass index 32.2 kg/m2 32.2 kg/m2 [facility] (BMI) [Ratio] Medical Center Body temperature 37.044111 Kaylie 37.500385 [facility] Respiratory rate 18 /min 18 /min [facility] Oxygen 99 % 99 % [place] saturation in Medical Arterial blood Center by Pulse oximetry Heart rate 88 /min 88 /min [facility] Diastolic blood 79 mm[Hg] 79 mm[Hg] [facility] Systolic blood 134 mm[Hg] 134 mm[Hg] [facility] Body temperature 37.665706 Kaylie 37.529197 [facility] Respiratory rate 18 /min 18 /min [facility] Oxygen 95 % 95 % [place] saturation in Medical Arterial blood Center by Pulse oximetry Heart rate 82 /min 82 /min [facility] Diastolic blood 79 mm[Hg] 79 mm[Hg] [facility] Systolic blood 144 mm[Hg] 144 mm[Hg] [facility] Body temperature 37.926140 Kaylie 37.141241 [facility] Respiratory rate 18 /min 18 /min [facility] Oxygen 95 % 95 % [place] saturation in Medical Arterial blood Center by Pulse oximetry Heart rate 86 /min 86 /min [facility] Diastolic blood 92 mm[Hg] 92 mm[Hg] [facility] Systolic blood 112 mm[Hg] 112 mm[Hg] [facility] Body temperature 37.111536 Kaylie 37.619538 [facility] Respiratory rate 19 /min 19 /min [facility] Oxygen 90 % 90 % [place] saturation in Medical Arterial blood Center by Pulse oximetry Heart rate 84 /min 84 /min [facility] Diastolic blood 92 mm[Hg] 92 mm[Hg] [facility] Medical Center Systolic blood 142 mm[Hg] 142 mm[Hg] [facility] Body temperature 36.319901 Kaylie 36.581034 [facility] Respiratory rate 20 /min 20 /min [facility] Oxygen 90 % 90 % [place] saturation in Medical Arterial blood Center by Pulse oximetry Heart rate 88 /min 88 /min [facility] Diastolic blood 97 mm[Hg] 97 mm[Hg] [facility] Systolic blood 127 mm[Hg] 127 mm[Hg] [facility] Body temperature 36.522171 Kaylie 36.752292 [facility] Respiratory rate 18 /min 18 /min [facility] Oxygen 99 % 99 % [place] saturation in Medical Arterial blood Center by Pulse oximetry Heart rate 78 /min 78 /min [facility] Diastolic blood 80 mm[Hg] 80 mm[Hg] [facility] Medical Center Systolic blood 144 mm[Hg] 144 mm[Hg] [facility] [place] Body temperature 36.596239 Kaylie 36.264930 [facility] Respiratory rate 18 /min 18 /min [facility] Oxygen 97 % 97 % [place] saturation in Medical Arterial blood Center by Pulse oximetry Heart rate 88 /min 88 /min [facility] Diastolic blood 76 mm[Hg] 76 mm[Hg] [facility] Systolic blood 148 mm[Hg] 148 mm[Hg] [facility] Body temperature 36.599718 Kaylie 36.567482 [facility] Respiratory rate 19 /min 19 /min [facility] Oxygen 96 % 96 % [place] saturation in Medical Arterial blood Center by Pulse oximetry Heart rate 100 /min 100 /min [facility] Diastolic blood 68 mm[Hg] 68 mm[Hg] [facility] Medical Center Systolic blood 121 mm[Hg] 121 mm[Hg] [facility] Body temperature 37.116156 Kaylie 37.948168 [facility] Respiratory rate 17 /min 17 /min [facility] Oxygen 98 % 98 % [place] saturation in Medical Arterial blood Center by Pulse oximetry Heart rate 105 /min 105 /min [facility] Diastolic blood 65 mm[Hg] 65 mm[Hg] [facility] Medical Center Systolic blood 119 mm[Hg] 119 mm[Hg] [facility] Body temperature 36.027574 Kaylie 36.024917 [facility] Respiratory rate 17 /min 17 /min [facility] Oxygen 98 % 98 % [place] saturation in Medical Arterial blood Center by Pulse oximetry Heart rate 100 /min 100 /min [facility] Diastolic blood 73 mm[Hg] 73 mm[Hg] [facility] Systolic blood 121 mm[Hg] 121 mm[Hg] [facility] [place] Body temperature 36.414997 Kaylie 36.071609 [facility] Respiratory rate 17 /min 17 /min [facility] Oxygen 98 % 98 % [place] saturation in Medical Arterial blood Center by Pulse oximetry Heart rate 69 /min 69 /min [facility] Diastolic blood 75 mm[Hg] 75 mm[Hg] [facility] Medical Center Systolic blood 129 mm[Hg] 129 mm[Hg] [facility] Body temperature 36.559910 Kaylie 36.632782 [facility] Respiratory rate 18 /min 18 /min [facility] Oxygen 98 % 98 % [place] saturation in Medical Arterial blood Center by Pulse oximetry Heart rate 82 /min 82 /min [facility] Diastolic blood 73 mm[Hg] 73 mm[Hg] [facility] Systolic blood 128 mm[Hg] 128 mm[Hg] [facility] Body temperature 36.890856 Kaylie 36.811949 [facility] Respiratory rate 18 /min 18 /min [facility] Oxygen 96 % 96 % [place] saturation in Medical Arterial blood Center by Pulse oximetry Heart rate 81 /min 81 /min [facility] Diastolic blood 78 mm[Hg] 78 mm[Hg] [facility] pressure Medical Center Systolic blood 126 mm[Hg] 126 mm[Hg] [facility] Body temperature 36.667770 Kaylie 36.237164 [facility] Respiratory rate 18 /min 18 /min [facility] Oxygen 97 % 97 % [place] saturation in Medical Arterial blood Center by Pulse oximetry Heart rate 79 /min 79 /min [facility] Diastolic blood 72 mm[Hg] 72 mm[Hg] [facility] Medical Center Systolic blood 129 mm[Hg] 129 mm[Hg] [facility] Body temperature 36.164211 Kaylie 36.631681 [facility] Respiratory rate 17 /min 17 /min [facility] Oxygen 98 % 98 % [place] saturation in Medical Arterial blood Center by Pulse oximetry Heart rate 88 /min 88 /min [facility] Diastolic blood 71 mm[Hg] 71 mm[Hg] [facility] Medical Center Systolic blood 126 mm[Hg] 126 mm[Hg] [facility] [place] Body temperature 36.852293 Kaylie 36.369243 [facility] Respiratory rate 18 /min 18 /min [facility] Oxygen 98 % 98 % [place] saturation in Medical Arterial blood Center by Pulse oximetry Heart rate 76 /min 76 /min [facility] Diastolic blood 72 mm[Hg] 72 mm[Hg] [facility] pressure Medical Center Systolic blood 126 mm[Hg] 126 mm[Hg] [facility] Systolic blood 132 mm[Hg] 132 mm[Hg] [facility] Body temperature 36.023307 Kaylie 36.301858 [facility] Respiratory rate 17 /min 17 /min [facility] Oxygen 97 % 97 % [place] saturation in Medical Arterial blood Center by Pulse oximetry Heart rate 90 /min 90 /min [facility] Diastolic blood 85 mm[Hg] 85 mm[Hg] [facility] Center Body temperature 37.862742 Kaylie 37.645353 [facility] Respiratory rate 18 /min 18 /min [facility] Oxygen 95 % 95 % [place] saturation in Medical Arterial blood Center by Pulse oximetry Heart rate 95 /min 95 /min [facility] Diastolic blood 96 mm[Hg] 96 mm[Hg] [facility] [place] Systolic blood 147 mm[Hg] 147 mm[Hg] [facility] Body temperature 36.586377 Kaylie 36.384031 Kay[facility] Respiratory rate 17 /min 17 /min [facility] Oxygen 95 % 95 % [place] saturation in Medical Arterial blood Center by Pulse oximetry Heart rate 94 /min 94 /min [facility] Diastolic blood 90 mm[Hg] 90 mm[Hg] [facility] Systolic blood 163 mm[Hg] 163 mm[Hg] [facility] [place] Body temperature 36.120669 Kaylie 36.356966 [facility] Respiratory rate 17 /min 17 /min [facility] Oxygen 98 % 98 % [place] saturation in Medical Arterial blood Center by Pulse oximetry Heart rate 96 /min 96 /min [facility] Diastolic blood 70 mm[Hg] 70 mm[Hg] [facility] [place] Systolic blood 122 mm[Hg] 122 mm[Hg] [facility] Body temperature 36.873145 Kaylie 36.777497 [facility] Respiratory rate 17 /min 17 /min [facility] Oxygen 98 % 98 % [place] saturation in Medical Arterial blood Center by Pulse oximetry Heart rate 70 /min 70 /min [facility] Diastolic blood 65 mm[Hg] 65 mm[Hg] [facility] [place] Systolic blood 127 mm[Hg] 127 mm[Hg] [facility] Body temperature 36.096976 Kaylie 36.916556 [facility] Respiratory rate 16 /min 16 /min [facility] Oxygen 95 % 95 % [place] saturation in Medical Arterial blood Center by Pulse oximetry Heart rate 94 /min 94 /min [facility] Diastolic blood 86 mm[Hg] 86 mm[Hg] [facility] Systolic blood 140 mm[Hg] 140 mm[Hg] [facility] Body temperature 36.044530 Kaylie 36.169690 [facility] Respiratory rate 6 /min 6 /min [facility] Oxygen 96 % 96 % [place] saturation in Medical Arterial blood Center by Pulse oximetry Heart rate 101 /min 101 /min [facility] Diastolic blood 90 mm[Hg] 90 mm[Hg] [facility] Medical Center Systolic blood 156 mm[Hg] 156 mm[Hg] [facility] Body temperature 36.356755 Kaylie 36.767376 Kay[facility] Diastolic blood 78 mm[Hg] 78 mm[Hg] [facility] Systolic blood 138 mm[Hg] 138 mm[Hg] [facility] Respiratory rate 18 /min 18 /min [facility] Oxygen 97 % 97 % [place] saturation in Medical Arterial blood Center by Pulse oximetry Heart rate 87 /min 87 /min [facility] Body temperature 36.347740 Kaylie 36.378474 [facility] Respiratory rate 18 /min 18 /min [facility] Oxygen 96 % 96 % [place] saturation in Medical Arterial blood Center by Pulse oximetry Heart rate 96 /min 96 /min [facility] Diastolic blood 90 mm[Hg] 90 mm[Hg] [facility] Systolic blood 150 mm[Hg] 150 mm[Hg] [facility] Body temperature 37.325455 Kaylie 37.225253 Kay[facility] Respiratory rate 18 /min 18 /min [facility] Oxygen 96 % 96 % [place] saturation in Medical Arterial blood Center by Pulse oximetry Heart rate 108 /min 108 /min [facility] Diastolic blood 63 mm[Hg] 63 mm[Hg] [facility] Systolic blood 110 mm[Hg] 110 mm[Hg] [facility] Body weight 116.437067 kg 116.268858 kg [facility] Body height 177.320857 cm 177.242922 cm [facility] Body mass index 36.8 kg/m2 36.8 kg/m2 [facility] (BMI) [Ratio] Medical Center Body temperature 36.415587 Kaylie 36.296130 Kaylie [facility] Respiratory rate 18 /min 18 /min [facility] Oxygen 98 % 98 % [place] saturation in Medical Arterial blood Center by Pulse oximetry Heart rate 82 /min 82 /min [facility] Diastolic blood 90 mm[Hg] 90 mm[Hg] [facility] Systolic blood 135 mm[Hg] 135 mm[Hg] [facility] Body temperature 36.658717 Kaylie 36.024312 Kay[facility] Respiratory rate 18 /min 18 /min [facility] Oxygen 98 % 98 % [place] saturation in Medical Arterial blood Center by Pulse oximetry Heart rate 80 /min 80 /min [facility] Diastolic blood 80 mm[Hg] 80 mm[Hg] [facility] Center Systolic blood 124 mm[Hg] 124 mm[Hg] [facility] Body temperature 37.862504 Kaylie 37.866406 [facility] Respiratory rate 17 /min 17 /min [facility] Oxygen 98 % 98 % [place] saturation in Medical Arterial blood Center by Pulse oximetry Heart rate 90 /min 90 /min [facility] Diastolic blood 75 mm[Hg] 75 mm[Hg] [facility] [place] Systolic blood 119 mm[Hg] 119 mm[Hg] [facility] Body temperature 37.588879 Kaylie 37.795912 [facility] Respiratory rate 18 /min 18 /min [facility] Oxygen 95 % 95 % [place] saturation in Medical Arterial blood Center by Pulse oximetry Heart rate 96 /min 96 /min [facility] Diastolic blood 71 mm[Hg] 71 mm[Hg] [facility] [place] Systolic blood 106 mm[Hg] 106 mm[Hg] [facility] Body temperature 37.895017 Kaylie 37.958802 [facility] Respiratory rate 18 /min 18 /min [facility] Oxygen 96 % 96 % [place] saturation in Medical Arterial blood Center by Pulse oximetry Heart rate 96 /min 96 /min [facility] Diastolic blood 65 mm[Hg] 65 mm[Hg] [facility] Systolic blood 116 mm[Hg] 116 mm[Hg] [facility] [place] Body temperature 36.386102 Kaylie 36.884442 [facility] Respiratory rate 17 /min 17 /min [facility] Oxygen 96 % 96 % [place] saturation in Medical Arterial blood Center by Pulse oximetry Heart rate 90 /min 90 /min [facility] Diastolic blood 74 mm[Hg] 74 mm[Hg] [facility] Systolic blood 129 mm[Hg] 129 mm[Hg] [facility] Body temperature 37.774397 Kaylie 37.058097 Kay[facility] Respiratory rate 17 /min 17 /min [facility] Oxygen 96 % 96 % [place] saturation in Medical Arterial blood Center by Pulse oximetry Heart rate 93 /min 93 /min [facility] Diastolic blood 59 mm[Hg] 59 mm[Hg] [facility] Systolic blood 101 mm[Hg] 101 mm[Hg] [facility] Body temperature 37.835822 Kaylie 37.666513 [facility] Respiratory rate 18 /min 18 /min [facility] Oxygen 98 % 98 % [place] saturation in Medical Arterial blood Center by Pulse oximetry Heart rate 89 /min 89 /min [facility] Diastolic blood 86 mm[Hg] 86 mm[Hg] [facility] Systolic blood 132 mm[Hg] 132 mm[Hg] [facility] Body temperature 37.981766 Kaylie 37.450433 [facility] Respiratory rate 18 /min 18 /min [facility] Oxygen 99 % 99 % [place] saturation in Medical Arterial blood Center by Pulse oximetry Heart rate 71 /min 71 /min [facility] Diastolic blood 75 mm[Hg] 75 mm[Hg] [facility] Systolic blood 131 mm[Hg] 131 mm[Hg] [facility] Body temperature 37.585342 Kaylie 37.454725 [facility] Respiratory rate 18 /min 18 /min [facility] Oxygen 95 % 95 % [place] saturation in Medical Arterial blood Center by Pulse oximetry Heart rate 104 /min 104 /min [facility] Diastolic blood 90 mm[Hg] 90 mm[Hg] [facility] Systolic blood 154 mm[Hg] 154 mm[Hg] [facility] Oxygen 96 % 96 % [place] saturation in Medical Arterial blood Center by Pulse oximetry Heart rate 100 /min 100 /min [facility] Diastolic blood 78 mm[Hg] 78 mm[Hg] [facility] Systolic blood 148 mm[Hg] 148 mm[Hg] [facility] Body temperature 37.710285 Kaylie 37.454835 [facility] Respiratory rate 19 /min 19 /min [facility] Body temperature 36.017999 Kaylie 36.642578 [facility] Respiratory rate 18 /min 18 /min [facility] Oxygen 97 % 97 % [place] saturation in Medical Arterial blood Center by Pulse oximetry Heart rate 100 /min 100 /min [facility] Diastolic blood 84 mm[Hg] 84 mm[Hg] [facility] Systolic blood 145 mm[Hg] 145 mm[Hg] [facility] Body weight 104.019186 kg 104.358513 kg [facility] Body height 177.281201 cm 177.335753 cm [facility] Body mass index 33.0 kg/m2 33.0 kg/m2 [facility] (BMI) [Ratio] Medical Center Body temperature 36.380393 Kaylie 36.235356 [facility] Respiratory rate 18 /min 18 /min [facility] Oxygen 95 % 95 % [place] saturation in Medical Arterial blood Center by Pulse oximetry Heart rate 99 /min 99 /min [facility] Diastolic blood 60 mm[Hg] 60 mm[Hg] [facility] Systolic blood 112 mm[Hg] 112 mm[Hg] [facility] Body temperature 36.761538 Kaylie 36.562205 [facility] Respiratory rate 18 /min 18 /min [facility] Oxygen 95 % 95 % [place] saturation in Medical Arterial blood Center by Pulse oximetry Heart rate 89 /min 89 /min [facility] Diastolic blood 62 mm[Hg] 62 mm[Hg] [facility] Systolic blood 102 mm[Hg] 102 mm[Hg] [facility] Body temperature 37.040006 Kaylie 37.792580 [facility] Respiratory rate 17 /min 17 /min [facility] Oxygen 95 % 95 % [place] saturation in Medical Arterial blood Center by Pulse oximetry Heart rate 92 /min 92 /min [facility] Diastolic blood 66 mm[Hg] 66 mm[Hg] [facility] Systolic blood 102 mm[Hg] 102 mm[Hg] [facility] Body temperature 36.439323 Kaylie 36.304700 [facility] Respiratory rate 17 /min 17 /min [facility] Oxygen 93 % 93 % [facility] [place] saturation in [facility] by Pulse oximetry Heart rate 69 /min 69 /min [facility] Diastolic blood 69 mm[Hg] 69 mm[Hg] [facility] pressure Medical Center Systolic blood 125 mm[Hg] 125 mm[Hg] [facility] Body temperature 36.131620 Kaylie 36.321636 [facility] Respiratory rate 18 /min 18 /min [facility] Oxygen 95 % 95 % [place] saturation in Medical Arter[facility] blood Center by Pulse oximetry Heart rate 67 /min 67 /min [facility] Diastolic blood 68 mm[Hg] 68 mm[Hg] [facility] pressure Medical Center Systolic blood 125 mm[Hg] 125 mm[Hg] [facility] [place] Body temperature 36.850103 Kaylie 36.170901 [facility] Respiratory rate 17 /min 17 /min [facility] Oxygen 96 % 96 % [place] saturation in [facility] blood Center by Pulse oximetry Heart rate 89 /min 89 /min [facility] Diastolic blood 88 mm[Hg] 88 mm[Hg] [facility] Systolic blood 143 mm[Hg] 143 mm[Hg] [facility] Oxygen 98 % 98 % [place] saturation in [facility] Ar[facility] blood Center by Pulse oximetry Heart rate 75 /min 75 /min [facility] Diastolic blood 68 mm[Hg] 68 mm[Hg] [facility] pressure [facility] Center Systolic blood 129 mm[Hg] 129 mm[Hg] [facility] Body temperature 37.122438 Kaylie 37.123709 [facility] Respiratory rate 17 /min 17 /min [facility] Respiratory rate 16 /min 16 /min [facility] Oxygen 93 % 93 % [place] saturation in [facility] blood Center by Pulse oximetry Heart rate 92 /min 92 /min [facility] Diastolic blood 72 mm[Hg] 72 mm[Hg] [facility] Systolic blood 143 mm[Hg] 143 mm[Hg] [facility] Body temperature 37.329362 Kaylie 37.490156 [facility] Respiratory rate 18 /min 18 /min [facility] Oxygen 98 % 98 % [place] saturation in [facility] Ar[facility] blood Center by Pulse oximetry Heart rate 86 /min 86 /min [facility] Diastolic blood 57 mm[Hg] 57 mm[Hg] [facility] pressure Medical Center Systolic blood 119 mm[Hg] 119 mm[Hg] [facility] Body temperature 37.067702 Kaylie 37.501246 [facility] Respiratory rate 16 /min 16 /min [facility] Oxygen 92 % 92 % [place] saturation in Medical Ar[facility] blood Center by Pulse oximetry Heart rate 88 /min 88 /min [facility] Diastolic blood 56 mm[Hg] 56 mm[Hg] [facility] Systolic blood 90 mm[Hg] 90 mm[Hg] [facility] Body weight 90.382765 kg 90.671079 kg [facility]asured [facility] Body temperature 37.148392 Kaylie 37.779982 [facility] Respiratory rate 19 /min 19 /min [facility] Oxygen 93 % 93 % [facility] saturation in Medical Arter[facility] blood Center by Pulse oximetry Heart rate 84 /min 84 /min [facility] Body height 177.683169 cm 177.592547 cm [facility] Diastolic blood 48 mm[Hg] 48 mm[Hg] [facility] pressure Medical Center Systolic blood 100 mm[Hg] 100 mm[Hg] [facility] Body mass index 28.4 kg/m2 28.4 kg/m2 [facility] (BMI) [Ratio] Medical Center Body temperature 37.764961 Kaylie 37.489343 [facility] Respiratory rate 18 /min 18 /min [facility] Oxygen 98 % 98 % [place] saturation in [facility] Ar[facility] blood Center by Pulse oximetry Heart rate 89 /min 89 /min [facility] Diastolic blood 78 mm[Hg] 78 mm[Hg] [facility] pressure Medical Center Systolic blood 145 mm[Hg] 145 mm[Hg] [facility] Body temperature 37.421768 Kaylie 37.405300 [facility] Respiratory rate 20 /min 20 /min [facility] Oxygen 95 % 95 % [place] saturation in [facility] Ar[facility] blood Center by Pulse oximetry Diastolic blood 90 mm[Hg] 90 mm[Hg] [facility] pressure Medical Center Systolic blood 154 mm[Hg] 154 mm[Hg] [facility] Body temperature 37.483713 Kaylie 37.518519 [facility] Respiratory rate 20 /min 20 /min [facility] Oxygen 95 % 95 % [place] saturation in [facility] Ar[facility] blood Center by Pulse oximetry Heart rate 91 /min 91 /min [facility] Diastolic blood 90 mm[Hg] 90 mm[Hg] [facility] pressure Medical Center Systolic blood 142 mm[Hg] 142 mm[Hg] [facility] [place] Body temperature 36.554528 Kaylie 36.329340 [facility] Respiratory rate 20 /min 20 /min [facility] Oxygen 98 % 98 % [place] saturation in [facility] Ar[facility] blood Center by Pulse oximetry Heart rate 95 /min 95 /min [facility] Diastolic blood 61 mm[Hg] 61 mm[Hg] [facility] pressure Medical Center Systolic blood 102 mm[Hg] 102 mm[Hg] [facility] Body temperature 36.948836 Kaylie 36.661393 [facility] Respiratory rate 19 /min 19 /min [facility] Oxygen 96 % 96 % [place] saturation in [facility] Ar[facility] blood Center by Pulse oximetry Heart rate 74 /min 74 /min [facility] Diastolic blood 74 mm[Hg] 74 mm[Hg] [facility] Systolic blood 132 mm[Hg] 132 mm[Hg] [facility] Body weight 79.826377 kg 79.474637 kg [facility] Heart rate 71 /min 71 /min [facility] Body height 182.323998 cm 182.686157 cm [facility] Body mass index 23.7 kg/m2 23.7 kg/m2 [facility] (BMI) [Ratio] Medical Center Body temperature 37.343797 Kaylie 37.592181 [facility] Respiratory rate 18 /min 18 /min [facility] Oxygen 96 % 96 % [place] saturation in [facility] blood [facility] by Pulse oximetry Heart rate 87 /min 87 /min [facility] Diastolic blood 69 mm[Hg] 69 mm[Hg] [facility] pressure Medical Center Systolic blood 129 mm[Hg] 129 mm[Hg] [facility] Body temperature 36.087765 Kaylie 36.984925 [facility] Respiratory rate 18 /min 18 /min [facility] Oxygen 95 % 95 % [place] saturation in Medical Ar[facility] blood Center by Pulse oximetry Heart rate 87 /min 87 /min [facility] Diastolic blood 75 mm[Hg] 75 mm[Hg] [facility] pressure Medical Center Systolic blood 122 mm[Hg] 122 mm[Hg] [facility] [place] Body temperature 37.433383 Kaylie 37.326728 [facility] Respiratory rate 19 /min 19 /min [facility] Oxygen 95 % 95 % [place] saturation in [facility] Ar[facility] blood Center by Pulse oximetry Heart rate 90 /min 90 /min [facility] Diastolic blood 78 mm[Hg] 78 mm[Hg] [facility] Systolic blood 124 mm[Hg] 124 mm[Hg] [facility] [place] Body temperature 37.911535 Kaylie 37.472682 [facility] Respiratory rate 19 /min 19 /min [facility] Oxygen 95 % 95 % [place] saturation in [facility] Ar[facility] blood Center by Pulse oximetry Heart rate 85 /min 85 /min [facility] Diastolic blood 70 mm[Hg] 70 mm[Hg] [facility] Systolic blood 129 mm[Hg] 129 mm[Hg] [facility] Body weight 104.356481 kg 104.893691 kg [facility] Body temperature 37.736474 Kaylie 37.629177 [facility] Respiratory rate 86 /min 86 /min [facility] Oxygen 95 % 95 % [place] saturation in [facility] Ar[facility] blood Center by Pulse oximetry Heart rate 86 /min 86 /min [facility] Body height 177.489070 cm 177.535496 cm [facility] Diastolic blood 74 mm[Hg] 74 mm[Hg] [facility] Systolic blood 137 mm[Hg] 137 mm[Hg] [facility] [place] Body mass index 33.0 kg/m2 33.0 kg/m2 [facility] (BMI) [Ratio] Medical Center Body temperature 36.835893 Kaylie 36.009414 [facility] Respiratory rate 18 /min 18 /min [facility] Oxygen 92 % 92 % [place] saturation in [facility] Ar[facility] blood Center by Pulse oximetry Heart rate 100 /min 100 /min [facility] Diastolic blood 65 mm[Hg] 65 mm[Hg] [facility] [place] Systolic blood 135 mm[Hg] 135 mm[Hg] [facility] Body temperature 37.994511 Kaylie 37.996336 [facility] Respiratory rate 18 /min 18 /min [facility] Oxygen 95 % 95 % [place] saturation in Medical Arter[facility] blood Center by Pulse oximetry Heart rate 97 /min 97 /min [facility] Diastolic blood 89 mm[Hg] 89 mm[Hg] [facility] Systolic blood 157 mm[Hg] 157 mm[Hg] [facility] Body temperature 37.814115 Kaylie 37.826242 [facility] Respiratory rate 18 /min 18 /min [facility] Oxygen 95 % 95 % [place] saturation in [facility] Ar[facility] blood Center by Pulse oximetry Heart rate 91 /min 91 /min [facility] Diastolic blood 60 mm[Hg] 60 mm[Hg] [facility] Systolic blood 118 mm[Hg] 118 mm[Hg] [facility] Body weight 104.971721 kg 104.017490 kg [facility] Body temperature 36.040846 Kaylie 36.815377 [facility] Respiratory rate 17 /min 17 /min [facility] Oxygen 95 % 95 % [place] saturation in [facility] Ar[facility] blood Center by Pulse oximetry Heart rate 89 /min 89 /min [facility] Body height 177.350941 cm 177.437570 cm [facility] Diastolic blood 88 mm[Hg] 88 mm[Hg] [facility] Systolic blood 127 mm[Hg] 127 mm[Hg] [facility] Body mass index 33.0 kg/m2 33.0 kg/m2 [facility] (BMI) [Ratio] Medical Center Body temperature 36.957054 Kaylie 36.588585 [facility] Respiratory rate 17 /min 17 /min [facility] Oxygen 98 % 98 % [place] saturation in [facility] Arter[facility] blood Center by Pulse oximetry Heart rate 88 /min 88 /min [facility] Diastolic blood 82 mm[Hg] 82 mm[Hg] [facility] pressure Medical Center Systolic blood 138 mm[Hg] 138 mm[Hg] [facility] Body temperature 36.055822 Kaylie 36.852358 [facility] Respiratory rate 18 /min 18 /min [facility] Oxygen 98 % 98 % [place] saturation in Medical Arterial blood Center by Pulse oximetry Heart rate 87 /min 87 /min [facility] Diastolic blood 84 mm[Hg] 84 mm[Hg] [facility] Systolic blood 145 mm[Hg] 145 mm[Hg] [facility] Body temperature 36.606449 Kaylie 36.263051 [facility] Respiratory rate 18 /min 18 /min [facility] Oxygen 97 % 97 % [place] saturation in Medical Ar[facility]ial blood Center by Pulse oximetry Heart rate 87 /min 87 /min [facility] Diastolic blood 97 mm[Hg] 97 mm[Hg] [facility] Systolic blood 154 mm[Hg] 154 mm[Hg] [facility] Body temperature 36.045981 Kaylie 36.130444 [facility] Respiratory rate 18 /min 18 /min [facility] Oxygen 98 % 98 % [place] saturation in Medical Arterial blood Center by Pulse oximetry Heart rate 88 /min 88 /min [facility] Diastolic blood 78 mm[Hg] 78 mm[Hg] [facility] Systolic blood 145 mm[Hg] 145 mm[Hg] [facility] Body temperature 36.720750 Kaylie 36.012187 [facility] Respiratory rate 18 /min 18 /min [facility] Oxygen 97 % 97 % [place] saturation in Medical Arterial blood Center by Pulse oximetry Heart rate 77 /min 77 /min [facility] Diastolic blood 71 mm[Hg] 71 mm[Hg] [facility] pressure Medical Center Systolic blood 126 mm[Hg] 126 mm[Hg] [facility] Body temperature 36.705632 Kaylie 36.044661 [facility] Respiratory rate 17 /min 17 /min [facility] Oxygen 94 % 94 % [place] saturation in Medical Arter[facility] blood Center by Pulse oximetry Heart rate 54 /min 54 /min [facility] Diastolic blood 64 mm[Hg] 64 mm[Hg] [facility] Systolic blood 113 mm[Hg] 113 mm[Hg] [facility] Respiratory rate 16 /min 16 /min [facility] Oxygen 97 % 97 % [place] saturation in Medical Arterial blood Center by Pulse oximetry Heart rate 52 /min 52 /min [facility] Diastolic blood 80 mm[Hg] 80 mm[Hg] [facility] Systolic blood 130 mm[Hg] 130 mm[Hg] [facility] Body temperature 36.903015 Kaylie 36.813997 [facility] Respiratory rate 18 /min 18 /min [facility] Oxygen 96 % 96 % [place] saturation in Medical Arterial blood Center by Pulse oximetry Heart rate 96 /min 96 /min [facility] Diastolic blood 75 mm[Hg] 75 mm[Hg] [facility] Systolic blood 129 mm[Hg] 129 mm[Hg] [facility] Body temperature 37.391661 Kaylie 37.596179 [facility] Respiratory rate 19 /min 19 /min [facility] Oxygen 96 % 96 % [place] saturation in Medical Arterial blood Center by Pulse oximetry Heart rate 98 /min 98 /min [facility] Diastolic blood 77 mm[Hg] 77 mm[Hg] [facility] pressure Medical Center Systolic blood 132 mm[Hg] 132 mm[Hg] [facility] Body temperature 36.315604 Kaylie 36.356069 Kay[facility] Respiratory rate 16 /min 16 /min [facility] Oxygen 95 % 95 % [place] saturation in Medical Arter[facility] blood Center by Pulse oximetry Heart rate 95 /min 95 /min [facility] Diastolic blood 70 mm[Hg] 70 mm[Hg] [facility] pressure Medical Center Systolic blood 118 mm[Hg] 118 mm[Hg] [facility] [place] Body temperature 36.171806 Kaylie 36.715747 Kay[facility] Respiratory rate 18 /min 18 /min [facility] Oxygen 96 % 96 % [place] saturation in Medical Arterial blood Center by Pulse oximetry Heart rate 100 /min 100 /min [facility] Diastolic blood 72 mm[Hg] 72 mm[Hg] [facility] Systolic blood 126 mm[Hg] 126 mm[Hg] [facility] Body temperature 36.872040 Kaylie 36.157741 [facility] Respiratory rate 18 /min 18 /min [facility] Oxygen 97 % 97 % [place] saturation in Medical Arter[facility] blood Center by Pulse oximetry Heart rate 88 /min 88 /min [facility] Diastolic blood 75 mm[Hg] 75 mm[Hg] [facility] Systolic blood 145 mm[Hg] 145 mm[Hg] [facility] Body temperature 36.017815 Kaylie 36.322180 [facility] Respiratory rate 18 /min 18 /min [facility] Oxygen 97 % 97 % [place] saturation in Medical Arterial blood Center by Pulse oximetry Heart rate 88 /min 88 /min [facility] Diastolic blood 73 mm[Hg] 73 mm[Hg] [facility] Systolic blood 128 mm[Hg] 128 mm[Hg] [facility] Body temperature 36.101388 Kaylie 36.109708 [facility] Respiratory rate 18 /min 18 /min [facility] Oxygen 96 % 96 % [place] saturation in Medical Arter[facility] blood Center by Pulse oximetry Heart rate 95 /min 95 /min [facility] Diastolic blood 89 mm[Hg] 89 mm[Hg] [facility] Systolic blood 131 mm[Hg] 131 mm[Hg] [facility] Body temperature 37.408239 Kaylie 37.336826 [facility] Respiratory rate 18 /min 18 /min [facility] Oxygen 98 % 98 % [place] saturation in Medical Arterial blood Center by Pulse oximetry Heart rate 89 /min 89 /min [facility] Diastolic blood 78 mm[Hg] 78 mm[Hg] [facility] pressure Medical Center Systolic blood 145 mm[Hg] 145 mm[Hg] [facility] Body temperature 36.891622 Kaylie 36.413909 [facility] Respiratory rate 18 /min 18 /min [facility] Oxygen 97 % 97 % [place] saturation in Medical Arterial blood Center by Pulse oximetry Heart rate 92 /min 92 /min [facility] Diastolic blood 95 mm[Hg] 95 mm[Hg] [facility] [place] Systolic blood 150 mm[Hg] 150 mm[Hg] [facility] [place] Body temperature 36.075441 Kaylie 36.048630 [facility] Respiratory rate 18 /min 18 /min [facility] Oxygen 95 % 95 % [place] saturation in Medical Arterial blood Center by Pulse oximetry Heart rate 88 /min 88 /min [facility] Diastolic blood 83 mm[Hg] 83 mm[Hg] [facility] [place] Systolic blood 139 mm[Hg] 139 mm[Hg] [facility] Body temperature 36.127510 Kaylie 36.403809 [facility] Respiratory rate 19 /min 19 /min [facility] Oxygen 97 % 97 % [place] saturation in Medical Arterial blood Center by Pulse oximetry Heart rate 87 /min 87 /min [facility] Diastolic blood 95 mm[Hg] 95 mm[Hg] [facility] Systolic blood 137 mm[Hg] 137 mm[Hg] [facility] Body temperature 36.353820 Kaylie 36.539293 [facility] Respiratory rate 18 /min 18 /min [facility] Oxygen 97 % 97 % [place] saturation in Medical Arter[facility] blood Center by Pulse oximetry Heart rate 82 /min 82 /min [facility] Diastolic blood 84 mm[Hg] 84 mm[Hg] [facility] Systolic blood 122 mm[Hg] 122 mm[Hg] [facility] Body temperature 36.328950 Kaylie 36.757528 [facility] Respiratory rate 18 /min 18 /min [facility] Oxygen 98 % 98 % [place] saturation in Medical Arterial blood Center by Pulse oximetry Heart rate 89 /min 89 /min [facility] Diastolic blood 74 mm[Hg] 74 mm[Hg] [facility] pressure Medical Center Systolic blood 124 mm[Hg] 124 mm[Hg] [facility] Body temperature 36.717854 Kaylie 36.770472 [facility] Respiratory rate 19 /min 19 /min [facility] Oxygen 98 % 98 % [place] saturation in Medical Arterial blood Center by Pulse oximetry Heart rate 85 /min 85 /min [facility] Diastolic blood 79 mm[Hg] 79 mm[Hg] [facility] pressure Medical Center Systolic blood 136 mm[Hg] 136 mm[Hg] [facility] Body temperature 37.611078 Kaylie 37.902978 [facility] Respiratory rate 17 /min 17 /min [facility] Oxygen 97 % 97 % [place] saturation in Medical Arterial blood Center by Pulse oximetry Heart rate 77 /min 77 /min [facility] Diastolic blood 74 mm[Hg] 74 mm[Hg] [facility] pressure Medical Center Systolic blood 109 mm[Hg] 109 mm[Hg] [facility] Body temperature 36.166051 Kaylie 36.972811 [facility] Respiratory rate 18 /min 18 /min [facility] Oxygen 96 % 96 % [place] saturation in Medical Arterial blood Center by Pulse oximetry Heart rate 82 /min 82 /min [facility] Diastolic blood 79 mm[Hg] 79 mm[Hg] [facility] pressure Medical Center Systolic blood 112 mm[Hg] 112 mm[Hg] [facility] Body weight 80.883073 kg 80.894393 kg [facility]asured [facility] Body height 172.118022 cm 172.683981 cm [facility] Body mass index 26.8 kg/m2 26.8 kg/m2 [facility] (BMI) [Ratio] Medical Center Body weight 80.353759 kg 80.295598 kg [facility]asured [facility] Body height 172.461131 cm 172.334505 cm [facility] Body mass index 26.8 kg/m2 26.8 kg/m2 [facility] (BMI) [Ratio] [facility] Body temperature 36.829842 Kaylie 36.572417 [facility] Respiratory rate 19 /min 19 /min [facility] Oxygen 100 % 100 % [place] saturation in Medical Arterial blood Center by Pulse oximetry Heart rate 85 /min 85 /min [facility] Diastolic blood 77 mm[Hg] 77 mm[Hg] [facility] pressure Medical Center Systolic blood 117 mm[Hg] 117 mm[Hg] [facility] Body temperature 37.928810 Kaylie 37.843439 [facility] Respiratory rate 18 /min 18 /min [facility] Oxygen 95 % 95 % [place] saturation in Medical Arterial blood Center by Pulse oximetry Heart rate 76 /min 76 /min [facility] Diastolic blood 64 mm[Hg] 64 mm[Hg] [facility] pressure Medical Center Systolic blood 125 mm[Hg] 125 mm[Hg] [facility] [place] Body temperature 37.906906 Kaylie 37.107320 [facility] Respiratory rate 19 /min 19 /min [facility] Oxygen 95 % 95 % [place] saturation in Medical Arterial blood Center by Pulse oximetry Heart rate 77 /min 77 /min [facility] Diastolic blood 63 mm[Hg] 63 mm[Hg] [facility] pressure Medical Center Systolic blood 113 mm[Hg] 113 mm[Hg] [facility] Body weight 104.068941 kg 104.149667 kg [facility] Body temperature 36.836921 Kaylie 36.597435 [facility] Respiratory rate 17 /min 17 /min [facility] Oxygen 92 % 92 % [place] saturation in Medical Arterial blood Center by Pulse oximetry Heart rate 84 /min 84 /min [facility] Body height 177.716089 cm 177.618678 cm [facility] Diastolic blood 83 mm[Hg] 83 mm[Hg] [facility] Systolic blood 136 mm[Hg] 136 mm[Hg] [facility] Body mass index 33.0 kg/m2 33.0 kg/m2 [facility] (BMI) [Ratio] Medical Center Body temperature 36.132657 Kaylie 36.092969 [facility] Respiratory rate 19 /min 19 /min [facility] Oxygen 96 % 96 % [place] saturation in Medical Arterial blood Center by Pulse oximetry Heart rate 89 /min 89 /min [facility] Diastolic blood 70 mm[Hg] 70 mm[Hg] [facility] pressure Medical Center Systolic blood 137 mm[Hg] 137 mm[Hg] [facility] Body temperature 36.273288 Kaylie 36.612935 [facility] Respiratory rate 18 /min 18 /min [facility] Oxygen 99 % 99 % [place] saturation in Medical Arterial blood Center by Pulse oximetry Heart rate 78 /min 78 /min [facility] Diastolic blood 78 mm[Hg] 78 mm[Hg] [facility] pressure Medical Center Systolic blood 144 mm[Hg] 144 mm[Hg] [facility] Oxygen 99 % 99 % [place] saturation in Medical Arterial blood Center by Pulse oximetry Respiratory rate 18 /min 18 /min [facility] Oxygen 90 % 90 % [place] saturation in Medical Arterial blood Center by Pulse oximetry Heart rate 72 /min 72 /min [facility] Diastolic blood 66 mm[Hg] 66 mm[Hg] [facility] pressure Medical Center Systolic blood 144 mm[Hg] 144 mm[Hg] [facility] Body temperature 36.479388 Kaylie 36.962906 [facility] Respiratory rate 18 /min 18 /min [facility] Heart rate 80 /min 80 /min [facility] Diastolic blood 82 mm[Hg] 82 mm[Hg] [place] [facility] pressure Medical Center Systolic blood 141 mm[Hg] 141 mm[Hg] [facility] Body temperature 36.345778 Kaylie 36.785192 [facility] Oxygen 92 % 92 % [place] saturation in Medical Arterial blood Center by Pulse oximetry Heart rate 79 /min 79 /min [facility] Diastolic blood 84 mm[Hg] 84 mm[Hg] [facility] pressure Medical Center Systolic blood 139 mm[Hg] 139 mm[Hg] [facility] pressure Medical Center Systolic blood 159 mm[Hg] 159 mm[Hg] [facility] pressure Medical Center Body mass index 33.0 kg/m2 33.0 kg/m2 [facility] (BMI) [Ratio] [facility] Center Body weight 104.674034 kg 104.747190 kg [facility] Body temperature 37.492808 Kaylie 37.074387 [facility] Respiratory rate 18 /min 18 /min [facility] Oxygen 97 % 97 % [place] saturation in Medical Arterial blood Center by Pulse oximetry Heart rate 69 /min 69 /min [facility] Body height 177.026193 cm 177.196152 cm [facility] Diastolic blood 100 mm[Hg] 100 mm[Hg] [facility] Body temperature 36.371145 Kaylie 36.904091 [facility] Respiratory rate 18 /min 18 /min [facility] Oxygen 97 % 97 % [place] saturation in Medical Arterial blood Center by Pulse oximetry Heart rate 88 /min 88 /min [facility] Diastolic blood 97 mm[Hg] 97 mm[Hg] [facility] Systolic blood 152 mm[Hg] 152 mm[Hg] [facility] Body temperature 37.678263 Kaylie 37.941294 [facility] Respiratory rate 18 /min 18 /min [facility] Oxygen 97 % 97 % [place] saturation in Medical Arterial blood Center by Pulse oximetry Heart rate 87 /min 87 /min [facility] Diastolic blood 87 mm[Hg] 87 mm[Hg] [facility] Systolic blood 145 mm[Hg] 145 mm[Hg] [facility] Body temperature 36.935805 Kaylie 36.648793 [facility] Respiratory rate 17 /min 17 /min [facility] Oxygen 94 % 94 % [place] saturation in Medical Arterial blood Center by Pulse oximetry Heart rate 98 /min 98 /min [facility] Diastolic blood 68 mm[Hg] 68 mm[Hg] [facility] Center Systolic blood 144 mm[Hg] 144 mm[Hg] [facility] Body temperature 36.762359 Kaylie 36.980434 [facility] Respiratory rate 18 /min 18 /min [facility] Oxygen 97 % 97 % [place] saturation in Medical Arterial blood Center by Pulse oximetry Heart rate 88 /min 88 /min [facility] Diastolic blood 72 mm[Hg] 72 mm[Hg] [facility] Systolic blood 144 mm[Hg] 144 mm[Hg] [facility] Body temperature 36.834420 Kaylie 36.286460 [facility] Respiratory rate 19 /min 19 /min [facility] Heart rate 90 /min 90 /min [facility] Diastolic blood 74 mm[Hg] 74 mm[Hg] [facility] pressure Medical Center Systolic blood 121 mm[Hg] 121 mm[Hg] [facility] Body temperature 37.298451 Kaylie 37.621131 [facility] Respiratory rate 17 /min 17 /min [facility] Oxygen 89 % 89 % [place] saturation in Medical Arterial blood Center by Pulse oximetry Heart rate 110 /min 110 /min [facility] Diastolic blood 76 mm[Hg] 76 mm[Hg] [facility] [place] Systolic blood 115 mm[Hg] 115 mm[Hg] [facility] Body temperature 36.690458 Kaylie 36.308778 [facility] Respiratory rate 18 /min 18 /min [facility] Oxygen 100 % 100 % [place] saturation in Medical Arterial blood Center by Pulse oximetry Heart rate 80 /min 80 /min [facility] Diastolic blood 78 mm[Hg] 78 mm[Hg] [facility] Systolic blood 128 mm[Hg] 128 mm[Hg] [facility] Body temperature 36.836775 Kaylie 36.216281 [facility] Respiratory rate 19 /min 19 /min [facility] Oxygen 96 % 96 % [place] saturation in Medical Arterial blood Center by Pulse oximetry Heart rate 69 /min 69 /min [facility] Diastolic blood 78 mm[Hg] 78 mm[Hg] [facility] Systolic blood 128 mm[Hg] 128 mm[Hg] [facility] Body weight 95.878035 [address] [facility] Body temperature 36.073937 Kaylie 36.272883 [facility] Respiratory rate 18 /min 18 /min [facility] Oxygen 96 % 96 % [place] saturation in Medical Arterial blood Center by Pulse oximetry Heart rate 95 /min 95 /min [facility] Body height 182.013316 cm 182.049278 cm [facility] Diastolic blood 80 mm[Hg] 80 mm[Hg] [facility] pressure Medical Center Systolic blood 130 mm[Hg] 130 mm[Hg] [facility] Body mass index 28.4 kg/m2 28.4 kg/m2 [facility] (BMI) [Ratio] Medical Center Body temperature 36.289946 Kaylie 36.461631 [facility] Respiratory rate 16 /min 16 /min [facility] Oxygen 97 % 97 % [place] saturation in Medical Arterial blood Center by Pulse oximetry Heart rate 74 /min 74 /min [facility] Diastolic blood 77 mm[Hg] 77 mm[Hg] [facility] Systolic blood 131 mm[Hg] 131 mm[Hg] [facility] Body temperature 36.272347 Kaylie 36.192280 [facility] Respiratory rate 18 /min 18 /min [facility] Oxygen 99 % 99 % [place] saturation in Medical Arterial blood Center by Pulse oximetry Heart rate 82 /min 82 /min [facility] Diastolic blood 82 mm[Hg] 82 mm[Hg] [facility] Systolic blood 135 mm[Hg] 135 mm[Hg] [facility] Body weight 120.244789 kg 120.541902 kg [facility] Body temperature 36.985388 Kaylie 36.997822 [facility] Respiratory rate 16 /min 16 /min [facility] Oxygen 96 % 96 % [place] saturation in Medical Arterial blood Center by Pulse oximetry Heart rate 67 /min 67 /min [facility] Diastolic blood 67 mm[Hg] 67 mm[Hg] [facility] Systolic blood 115 mm[Hg] 115 mm[Hg] [facility] Oxygen 90 % 90 % [place] saturation in Medical Arterial blood Center by Pulse oximetry Heart rate 109 /min 109 /min [facility] Diastolic blood 62 mm[Hg] 62 mm[Hg] [facility] Systolic blood 103 mm[Hg] 103 mm[Hg] [facility] Body temperature 37.103454 Kaylie 37.974657 [facility] Respiratory rate 18 /min 18 /min [facility] Body weight 113.852946 kg 113.521298 kg [facility] Body temperature 36.858343 Kaylie 36.763446 [facility] Respiratory rate 18 /min 18 /min [facility] Oxygen 96 % 96 % [place] saturation in Medical Arterial blood Center by Pulse oximetry Heart rate 82 /min 82 /min [facility] Body height 177.867534 cm 177.141272 cm [facility] Diastolic blood 82 mm[Hg] 82 mm[Hg] [facility] pressure Medical Center Systolic blood 136 mm[Hg] 136 mm[Hg] [facility] Body mass index 35.8 kg/m2 35.8 kg/m2 [facility] (BMI) [Ratio] Medical Center Body temperature 37.813542 Kaylie 37.596624 [facility] Respiratory rate 18 /min 18 /min [facility] Oxygen 96 % 96 % [place] saturation in Medical Arterial blood Center by Pulse oximetry Heart rate 88 /min 88 /min [facility] Diastolic blood 86 mm[Hg] 86 mm[Hg] [facility] Systolic blood 118 mm[Hg] 118 mm[Hg] [facility] Body temperature 36.941842 Kaylie 36.727445 [facility] Respiratory rate 18 /min 18 /min [facility] Oxygen 98 % 98 % [place] saturation in Medical Arterial blood Center by Pulse oximetry Heart rate 79 /min 79 /min [facility] Diastolic blood 78 mm[Hg] 78 mm[Hg] [facility] Systolic blood 121 mm[Hg] 121 mm[Hg] [facility] Body temperature 36.865590 Kaylie 36.893210 [facility] Respiratory rate 19 /min 19 /min [facility] Oxygen 96 % 96 % [place] saturation in Medical Arterial blood Center by Pulse oximetry Heart rate 81 /min 81 /min [facility] Diastolic blood 74 mm[Hg] 74 mm[Hg] [facility] Systolic blood 118 mm[Hg] 118 mm[Hg] [facility] Body temperature 37.698287 Kaylie 37.030857 [facility] Respiratory rate 18 /min 18 /min [facility] Oxygen 96 % 96 % [facility] saturation in Medical Arterial blood Center by Pulse oximetry Heart rate 96 /min 96 /min [facility] Diastolic blood 59 mm[Hg] 59 mm[Hg] [facility] pressure Medical Center Systolic blood 94 mm[Hg] 94 mm[Hg] [facility] Body temperature 37.945353 Kaylie 37.206138 [facility] Respiratory rate 19 /min 19 /min [facility] Oxygen 95 % 95 % [facility] saturation in Medical Arterial blood Center by Pulse oximetry Heart rate 88 /min 88 /min [facility] Diastolic blood 53 mm[Hg] 53 mm[Hg] [facility] pressure Medical Center Systolic blood 93 mm[Hg] 93 mm[Hg] [facility] Body weight 74.939299 kg 74.193672 kg [facility] Measured [facility] Center Body temperature 36.436601 Kaylie 36.646076 [facility] Respiratory rate 18 /min 18 /min [facility] Oxygen 100 % 100 % [facility] saturation in Medical Arterial blood Center by Pulse oximetry Heart rate 94 /min 94 /min [facility] Body height 182.138334 cm 182.073488 cm [facility] Diastolic blood 59 mm[Hg] 59 mm[Hg] [facility] pressure Medical Center Systolic blood 100 mm[Hg] 100 mm[Hg] [facility] Body mass index 22.3 kg/m2 22.3 kg/m2 [facility] (BMI) [Ratio] Medical Center Body temperature 37.955658 Kaylie 37.239241 [facility] Respiratory rate 18 /min 18 /min [facility] Oxygen 95 % 95 % [facility] saturation in Medical Arterial blood Center by Pulse oximetry Heart rate 88 /min 88 /min [facility] Diastolic blood 78 mm[Hg] 78 mm[Hg] [facility] pressure Medical Center Systolic blood 132 mm[Hg] 132 mm[Hg] [facility] Body temperature 37.245381 Kaylie 37.983838 [facility] Respiratory rate 17 /min 17 /min [facility] Oxygen 94 % 94 % [place] saturation in Medical Arterial blood Center by Pulse oximetry Heart rate 80 /min 80 /min [facility] Diastolic blood 84 mm[Hg] 84 mm[Hg] [facility] pressure Medical Center Systolic blood 134 mm[Hg] 134 mm[Hg] [facility] Body temperature 37.438063 Kaylie 37.346270 [facility] Respiratory rate 19 /min 19 /min [facility] Oxygen 95 % 95 % [place] saturation in Medical Arterial blood Center by Pulse oximetry Heart rate 87 /min 87 /min [facility] Diastolic blood 75 mm[Hg] 75 mm[Hg] [facility] Systolic blood 137 mm[Hg] 137 mm[Hg] [facility] Body temperature 36.122671 Kaylie 36.300310 [facility] Respiratory rate 18 /min 18 /min [facility] Oxygen 93 % 93 % [place] saturation in Medical Arterial blood Center by Pulse oximetry Heart rate 81 /min 81 /min [facility] Diastolic blood 77 mm[Hg] 77 mm[Hg] [facility] pressure Medical Center Systolic blood 137 mm[Hg] 137 mm[Hg] [facility] [place] Body temperature 37.894820 Kaylie 37.436096 [facility] Respiratory rate 19 /min 19 /min [facility] Oxygen 96 % 96 % [place] saturation in Medical Arterial blood Center by Pulse oximetry Heart rate 96 /min 96 /min [facility] Diastolic blood 75 mm[Hg] 75 mm[Hg] [facility] pressure Medical Center Systolic blood 129 mm[Hg] 129 mm[Hg] [facility] Body temperature 37.077172 Kaylie 37.337194 [facility] Respiratory rate 18 /min 18 /min [facility] Oxygen 97 % 97 % [place] saturation in Medical Arterial blood Center by Pulse oximetry Heart rate 99 /min 99 /min [facility] Diastolic blood 72 mm[Hg] 72 mm[Hg] [facility] pressure Medical Center Systolic blood 131 mm[Hg] 131 mm[Hg] [facility] Body temperature 37.425943 Kaylie 37.435483 [facility] Respiratory rate 19 /min 19 /min [facility] Oxygen 98 % 98 % [place] saturation in Medical Arterial blood Center by Pulse oximetry Heart rate 84 /min 84 /min [facility] Diastolic blood 85 mm[Hg] 85 mm[Hg] [facility] pressure Medical Center Systolic blood 131 mm[Hg] 131 mm[Hg] [facility] Body temperature 37.559123 Kaylie 37.370231 [facility] Respiratory rate 18 /min 18 /min [facility] Oxygen 98 % 98 % [place] saturation in Medical Arterial blood Center by Pulse oximetry Heart rate 85 /min 85 /min [facility] Diastolic blood 88 mm[Hg] 88 mm[Hg] [facility] Systolic blood 126 mm[Hg] 126 mm[Hg] [facility] Body temperature 37.220427 Kaylie 37.776479 [facility] Respiratory rate 18 /min 18 /min [facility] Oxygen 98 % 98 % [place] saturation in Medical Arterial blood Center by Pulse oximetry Heart rate 90 /min 90 /min [facility] Diastolic blood 85 mm[Hg] 85 mm[Hg] [facility] Systolic blood 139 mm[Hg] 139 mm[Hg] [facility] Body weight 85.187279 kg 85.499178 kg [facility] Measured [facility] Body height 177.006147 cm 177.535619 cm [facility] Body mass index 26.8 kg/m2 26.8 kg/m2 [facility] (BMI) [Ratio] Medical Center Body temperature 36.237827 Kaylie 36.600513 [facility] Respiratory rate 16 /min 16 /min [facility] Oxygen 96 % 96 % [place] saturation in Medical Arterial blood Center by Pulse oximetry Heart rate 71 /min 71 /min [facility] Diastolic blood 66 mm[Hg] 66 mm[Hg] [facility] pressure Medical Center Systolic blood 115 mm[Hg] 115 mm[Hg] [facility] Body temperature 36.138555 Kaylie 36.796061 [facility] Respiratory rate 16 /min 16 /min [facility] Oxygen 96 % 96 % [place] saturation in Medical Arterial blood Center by Pulse oximetry Heart rate 75 /min 75 /min [facility] Diastolic blood 74 mm[Hg] 74 mm[Hg] [facility] Systolic blood 121 mm[Hg] 121 mm[Hg] [facility] [place] Body temperature 36.634836 Kaylie 36.488485 [facility] Respiratory rate 17 /min 17 /min [facility] Oxygen 98 % 98 % [facility] saturation in Medical Arterial blood Center by Pulse oximetry Heart rate 84 /min 84 /min [facility] Diastolic blood 70 mm[Hg] 70 mm[Hg] [facility] [place] Systolic blood 118 mm[Hg] 118 mm[Hg] [facility] [place] Body temperature 37.731549 Kaylie 37.323023 [facility] Respiratory rate 18 /min 18 /min [facility] Oxygen 97 % 97 % [facility] saturation in Medical Arterial blood Center by Pulse oximetry Heart rate 86 /min 86 /min [facility] Diastolic blood 87 mm[Hg] 87 mm[Hg] [facility] pressure Medical Center Systolic blood 136 mm[Hg] 136 mm[Hg] [facility] Body temperature 36.133055 Kaylie 36.614743 [facility] Respiratory rate 18 /min 18 /min [facility] Heart rate 89 /min 89 /min [facility] Diastolic blood 90 mm[Hg] 90 mm[Hg] [facility] Systolic blood 134 mm[Hg] 134 mm[Hg] [facility] Body temperature 36.779520 Kaylie 36.119782 [facility] Respiratory rate 18 /min 18 /min [facility] Heart rate 94 /min 94 /min [facility] Diastolic blood 83 mm[Hg] 83 mm[Hg] [facility] pressure Medical Center Systolic blood 136 mm[Hg] 136 mm[Hg] [facility] Body temperature 37.736446 Kaylie 37.028806 [facility] Respiratory rate 20 /min 20 /min [facility] Heart rate 87 /min 87 /min [facility] Diastolic blood 73 mm[Hg] 73 mm[Hg] [facility] pressure Medical Center Systolic blood 132 mm[Hg] 132 mm[Hg] [facility] Body temperature 36.136442 Kaylie 36.522234 [facility] Respiratory rate 20 /min 20 /min [facility] Heart rate 82 /min 82 /min [facility] Diastolic blood 81 mm[Hg] 81 mm[Hg] [facility] pressure Medical Center Systolic blood 123 mm[Hg] 123 mm[Hg] [facility] Oxygen 94 % 94 % [place] saturation in Medical Arterial blood Center by Pulse oximetry Body temperature 36.061217 Kaylie 36.752269 [facility] Respiratory rate 17 /min 17 /min [facility] Heart rate 91 /min 91 /min [facility] Diastolic blood 79 mm[Hg] 79 mm[Hg] [facility] Systolic blood 143 mm[Hg] 143 mm[Hg] [facility] [place] Body weight 104.492111 kg 104.899848 kg [facility] [place] Body temperature 36.114710 Kaylie 36.180855 [facility] Respiratory rate 17 /min 17 /min [facility] Oxygen 98 % 98 % [place] saturation in Medical Arterial blood Center by Pulse oximetry Heart rate 94 /min 94 /min [facility] Diastolic blood 74 mm[Hg] 74 mm[Hg] [facility] Systolic blood 106 mm[Hg] 106 mm[Hg] [facility] Body temperature 36.599744 Kaylie 36.508617 [facility] Respiratory rate 17 /min 17 /min [facility] Oxygen 96 % 96 % [place] saturation in Medical Arterial blood Center by Pulse oximetry Heart rate 98 /min 98 /min [facility] Diastolic blood 76 mm[Hg] 76 mm[Hg] [facility] Systolic blood 134 mm[Hg] 134 mm[Hg] [facility] Respiratory rate 18 /min 18 /min [facility] Oxygen 97 % 97 % [place] saturation in Medical Arterial blood Center by Pulse oximetry Heart rate 78 /min 78 /min [facility] Diastolic blood 68 mm[Hg] 68 mm[Hg] [facility] pressure Medical Center Systolic blood 126 mm[Hg] 126 mm[Hg] [facility] Body temperature 36.228130 Kaylie 36.634129 [facility] Respiratory rate 18 /min 18 /min [facility] Oxygen 100 % 100 % [place] saturation in Medical Arterial blood Center by Pulse oximetry Heart rate 71 /min 71 /min [facility] Diastolic blood 66 mm[Hg] 66 mm[Hg] [place] [facility] Systolic blood 125 mm[Hg] 125 mm[Hg] [facility] Body temperature 36.488115 Kaylie 36.657684 [facility] Respiratory rate 18 /min 18 /min [facility] Oxygen 99 % 99 % [place] saturation in Medical Arterial blood Center by Pulse oximetry Heart rate 89 /min 89 /min [facility] Diastolic blood 81 mm[Hg] 81 mm[Hg] [facility] Systolic blood 132 mm[Hg] 132 mm[Hg] [facility] Body temperature 36.838479 Kaylie 36.416544 [facility] Respiratory rate 17 /min 17 /min [facility] Oxygen 97 % 97 % [place] saturation in Medical Arterial blood Center by Pulse oximetry Heart rate 86 /min 86 /min [facility] Diastolic blood 50 mm[Hg] 50 mm[Hg] [facility] Systolic blood 80 mm[Hg] 80 mm[Hg] [facility] Body temperature 37.859316 Kaylie 37.760897 [facility] Respiratory rate 18 /min 18 /min [facility] Oxygen 91 % 91 % [place] saturation in Medical Arterial blood Center by Pulse oximetry Heart rate 82 /min 82 /min [facility] Diastolic blood 56 mm[Hg] 56 mm[Hg] [facility] Systolic blood 103 mm[Hg] 103 mm[Hg] [facility] [place] Body weight 94.803058 kg 94.584522 kg [facility] [place] Body temperature 37.602027 Kaylie 37.016110 [facility] Respiratory rate 18 /min 18 /min [facility] Oxygen 88 % 88 % [place] saturation in Medical Arterial blood Center by Pulse oximetry Heart rate 80 /min 80 /min [facility] Body height 177.775368 cm 177.150757 cm [facility] Diastolic blood 74 mm[Hg] 74 mm[Hg] [facility] pressure Medical Center Systolic blood 104 mm[Hg] 104 mm[Hg] [facility] Body mass index 29.8 kg/m2 29.8 kg/m2 [facility] (BMI) [Ratio] Medical Center Body temperature 36.847959 Kaylie 36.146991 [facility] Respiratory rate 18 /min 18 /min [facility] Oxygen 97 % 97 % [place] saturation in Medical Arterial blood Center by Pulse oximetry Heart rate 98 /min 98 /min [facility] Diastolic blood 72 mm[Hg] 72 mm[Hg] [facility] pressure [facility] Center Systolic blood 133 mm[Hg] 133 mm[Hg] [facility] Body temperature 36.181521 Kaylie 36.331949 [facility] Respiratory rate 18 /min 18 /min [facility] Oxygen 98 % 98 % [place] saturation in Medical Arterial blood Center by Pulse oximetry Heart rate 83 /min 83 /min [facility] Diastolic blood 85 mm[Hg] 85 mm[Hg] [facility] Systolic blood 132 mm[Hg] 132 mm[Hg] [facility] Body temperature 36.430862 Kaylie 36.082230 [facility] Respiratory rate 16 /min 16 /min [facility] Oxygen 96 % 96 % [place] saturation in Medical Arterial blood Center by Pulse oximetry Heart rate 88 /min 88 /min [facility] Diastolic blood 70 mm[Hg] 70 mm[Hg] [facility] Systolic blood 120 mm[Hg] 120 mm[Hg] [facility] Body temperature 36.262739 Kaylie 36.750666 [facility] Respiratory rate 19 /min 19 /min [facility] Oxygen 94 % 94 % [place] saturation in Medical Arterial blood Center by Pulse oximetry Heart rate 96 /min 96 /min [facility] Diastolic blood 78 mm[Hg] 78 mm[Hg] [facility] [place] Systolic blood 121 mm[Hg] 121 mm[Hg] [facility] Body temperature 36.624119 Kaylie 36.048783 [facility] Respiratory rate 20 /min 20 /min [facility] Heart rate 85 /min 85 /min [facility] Diastolic blood 99 mm[Hg] 99 mm[Hg] [facility] [place] Systolic blood 155 mm[Hg] 155 mm[Hg] [facility] Body temperature 37.830023 Kaylie 37.633903 [facility] Respiratory rate 20 /min 20 /min [facility] Heart rate 75 /min 75 /min [facility] Diastolic blood 89 mm[Hg] 89 mm[Hg] [facility] Systolic blood 175 mm[Hg] 175 mm[Hg] [facility] Body temperature 36.132426 Kaylie 36.772461 [facility] Respiratory rate 20 /min 20 /min [facility] Heart rate 86 /min 86 /min [facility] Diastolic blood 81 mm[Hg] 81 mm[Hg] [facility] Systolic blood 138 mm[Hg] 138 mm[Hg] [facility] Body temperature 36.642446 Kaylie 36.153831 [facility] Respiratory rate 20 /min 20 /min [facility] Heart rate 82 /min 82 /min [facility] Diastolic blood 78 mm[Hg] 78 mm[Hg] [facility] Systolic blood 134 mm[Hg] 134 mm[Hg] [facility] Body weight 108.840814 kg 108.076177 kg [facility] Body temperature 36.450811 Kaylie 36.284469 [facility] Respiratory rate 20 /min 20 /min [facility] Heart rate 88 /min 88 /min [facility] Body height 167.609352 cm 167.357835 cm [facility] Diastolic blood 99 mm[Hg] 99 mm[Hg] [facility] [place] Systolic blood 156 mm[Hg] 156 mm[Hg] [facility] Body mass index 38.71 kg/m2 38.71 kg/m2 [facility] (BMI) [Ratio] Medical Center Body temperature 37.033888 Kaylie 37.086080 [facility] Respiratory rate 19 /min 19 /min [facility] Heart rate 83 /min 83 /min [facility] Diastolic blood 97 mm[Hg] 97 mm[Hg] [facility] pressure Medical Center Systolic blood 153 mm[Hg] 153 mm[Hg] [facility] Body temperature 37.622665 Kaylie 37.540556 [facility] Respiratory rate 19 /min 19 /min [facility] Heart rate 82 /min 82 /min [facility] Diastolic blood 115 mm[Hg] 115 mm[Hg] [facility] Systolic blood 176 mm[Hg] 176 mm[Hg] [facility] Body temperature 37.339476 Kaylie 37.290880 [facility] Respiratory rate 20 /min 20 /min [facility] Heart rate 92 /min 92 /min [facility] Diastolic blood 93 mm[Hg] 93 mm[Hg] [facility] Center Systolic blood 163 mm[Hg] 163 mm[Hg] [facility] Oxygen 96 % 96 % [place] saturation in Medical Arterial blood Center by Pulse oximetry Oxygen 92 % 92 % [place] saturation in Medical Arterial blood Center by Pulse oximetry Oxygen 95 % 95 % [place] saturation in Medical Arterial blood Center by Pulse oximetry Oxygen 95 % 95 % [place] saturation in Medical Arterial blood Center by Pulse oximetry Oxygen 94 % 94 % [place] saturation in Medical Arterial blood Center by Pulse oximetry Body temperature 36.813160 Kaylie 36.561391 [facility] Respiratory rate 20 /min 20 /min [facility] Heart rate 83 /min 83 /min [facility] Diastolic blood 95 mm[Hg] 95 mm[Hg] [facility] Center Systolic blood 151 mm[Hg] 151 mm[Hg] [facility] Body temperature 36.013186 Kaylie 36.026661 [facility] Respiratory rate 20 /min 20 /min [facility] Heart rate 89 /min 89 /min [facility] Diastolic blood 101 mm[Hg] 101 mm[Hg] [facility] pressure Medical Center Systolic blood 186 mm[Hg] 186 mm[Hg] [facility] Body weight 104.743162 kg 104.728296 kg [facility] Body temperature 37.662239 Kaylie 37.448687 [facility] Respiratory rate 20 /min 20 /min [facility] Heart rate 93 /min 93 /min [facility] Body height 177.847664 cm 177.865585 cm [facility] Center Diastolic blood 98 mm[Hg] 98 mm[Hg] [facility] Systolic blood 169 mm[Hg] 169 mm[Hg] [facility] Center Body mass index 33.06 kg/m2 33.06 kg/m2 [facility] (BMI) [Ratio] Medical Center Body temperature 37.958295 Kaylie 37.579132 [facility] Respiratory rate 18 /min 18 /min [facility] Oxygen 96 % 96 % [place] saturation in Medical Arterial blood Center by Pulse oximetry Heart rate 91 /min 91 /min [facility] Diastolic blood 79 mm[Hg] 79 mm[Hg] [facility] Systolic blood 127 mm[Hg] 127 mm[Hg] [facility] Body temperature 36.286444 Kaylie 36.155558 [facility] Respiratory rate 17 /min 17 /min [facility] Oxygen 95 % 95 % [place] saturation in Medical Arterial blood Center by Pulse oximetry Heart rate 89 /min 89 /min [facility] Diastolic blood 60 mm[Hg] 60 mm[Hg] [facility] Systolic blood 123 mm[Hg] 123 mm[Hg] [facility] Oxygen 95 % 95 % [place] saturation in Medical Arterial blood Center by Pulse oximetry Body temperature 36.347897 Kaylie 36.492510 [facility] Respiratory rate 16 /min 16 /min [facility] Oxygen 98 % 98 % [place] saturation in Medical Arterial blood Center by Pulse oximetry Heart rate 87 /min 87 /min [facility] Diastolic blood 88 mm[Hg] 88 mm[Hg] [facility] Systolic blood 151 mm[Hg] 151 mm[Hg] [facility] Body temperature 36.889403 Kaylie 36.359325 [facility] Respiratory rate 18 /min 18 /min [facility] Oxygen 95 % 95 % [place] saturation in Medical Arterial blood Center by Pulse oximetry Heart rate 94 /min 94 /min [facility] Diastolic blood 90 mm[Hg] 90 mm[Hg] [facility] Systolic blood 156 mm[Hg] 156 mm[Hg] [facility] Body temperature 36.803249 Kaylie 36.959665 [facility] Respiratory rate 19 /min 19 /min [facility] Oxygen 96 % 96 % [place] saturation in Medical Arterial blood Center by Pulse oximetry Heart rate 88 /min 88 /min [facility] Diastolic blood 88 mm[Hg] 88 mm[Hg] [facility] Systolic blood 140 mm[Hg] 140 mm[Hg] [facility] Body temperature 36.275117 Kaylie 36.292724 [facility] Respiratory rate 19 /min 19 /min [facility] Oxygen 96 % 96 % [place] saturation in Medical Arterial blood Center by Pulse oximetry Heart rate 92 /min 92 /min [facility] Diastolic blood 99 mm[Hg] 99 mm[Hg] [facility] Systolic blood 149 mm[Hg] 149 mm[Hg] [facility] Body temperature 36.079598 Kaylie 36.265081 [facility] Respiratory rate 20 /min 20 /min [facility] Oxygen 95 % 95 % [place] saturation in Medical Arterial blood Center by Pulse oximetry Heart rate 99 /min 99 /min [facility] Diastolic blood 75 mm[Hg] 75 mm[Hg] [facility] Systolic blood 106 mm[Hg] 106 mm[Hg] [facility] Center Body weight 80.749501 kg 80.813168 kg [facility] Measured Medical Center Body height 177.583045 cm 177.342231 cm [facility] Body mass index 25.3 kg/m2 25.3 kg/m2 [facility] (BMI) [Ratio] Medical Center Body temperature 36.546837 Kaylie 36.215975 [facility] Respiratory rate 19 /min 19 /min [facility] Oxygen 96 % 96 % [place] saturation in Medical Arterial blood Center by Pulse oximetry Heart rate 95 /min 95 /min [facility] Diastolic blood 82 mm[Hg] 82 mm[Hg] [facility] pressure Medical Center Systolic blood 132 mm[Hg] 132 mm[Hg] [facility] Body temperature 36.051127 Kaylie 36.971272 [facility] Respiratory rate 19 /min 19 /min [facility] Oxygen 97 % 97 % [place] saturation in Medical Arterial blood Center by Pulse oximetry Heart rate 97 /min 97 /min [facility] Diastolic blood 67 mm[Hg] 67 mm[Hg] [facility] Systolic blood 121 mm[Hg] 121 mm[Hg] [facility] Body temperature 36.753936 Kaylie 36.586779 [facility] Respiratory rate 18 /min 18 /min [facility] Oxygen 96 % 96 % [place] saturation in Medical Arterial blood Center by Pulse oximetry Heart rate 89 /min 89 /min [facility] Diastolic blood 63 mm[Hg] 63 mm[Hg] [facility] Systolic blood 101 mm[Hg] 101 mm[Hg] [facility] Body temperature 36.097133 Kaylie 36.807115 Kay[facility] Respiratory rate 19 /min 19 /min [facility] Oxygen 96 % 96 % [place] saturation in Medical Arterial blood Center by Pulse oximetry Heart rate 90 /min 90 /min [facility] Diastolic blood 48 mm[Hg] 48 mm[Hg] [facility] Systolic blood 102 mm[Hg] 102 mm[Hg] [facility] Body temperature 36.418978 Kaylie 36.017445 [facility] Respiratory rate 18 /min 18 /min [facility] Oxygen 96 % 96 % [place] saturation in Medical Arterial blood Center by Pulse oximetry Heart rate 85 /min 85 /min [facility] Diastolic blood 58 mm[Hg] 58 mm[Hg] [facility] pressure [facility] Center Systolic blood 112 mm[Hg] 112 mm[Hg] [facility] Body temperature 37.182615 Kaylie 37.567970 [facility] Respiratory rate 18 /min 18 /min [facility] Oxygen 95 % 95 % [place] saturation in Medical Arterial blood Center by Pulse oximetry Heart rate 81 /min 81 /min [facility] Diastolic blood 58 mm[Hg] 58 mm[Hg] [facility] pressure Medical Center Systolic blood 101 mm[Hg] 101 mm[Hg] [facility] Body temperature 37.838992 Kaylie 37.536903 Kay[facility] Oxygen 88 % 88 % [place] saturation in Medical Arterial blood Center by Pulse oximetry Heart rate 79 /min 79 /min [facility] Diastolic blood 45 mm[Hg] 45 mm[Hg] [facility] [place] Systolic blood 82 mm[Hg] 82 mm[Hg] [facility] [place] Body temperature 37.440371 Kaylie 37.424712 [facility] Respiratory rate 18 /min 18 /min [facility] Heart rate 86 /min 86 /min [facility] Diastolic blood 57 mm[Hg] 57 mm[Hg] [facility] Systolic blood 97 mm[Hg] 97 mm[Hg] [facility] Body temperature 37.797639 Kaylie 37.795010 [facility] Respiratory rate 18 /min 18 /min [facility] Oxygen 96 % 96 % [place] saturation in Medical Arterial blood Center by Pulse oximetry Heart rate 85 /min 85 /min [facility] Diastolic blood 51 mm[Hg] 51 mm[Hg] [facility] Systolic blood 94 mm[Hg] 94 mm[Hg] [facility] Body temperature 36.955008 Kaylie 36.517523 [facility] Respiratory rate 17 /min 17 /min [facility] Oxygen 98 % 98 % [place] saturation in Medical Arterial blood Center by Pulse oximetry Heart rate 80 /min 80 /min [facility] Diastolic blood 70 mm[Hg] 70 mm[Hg] [facility] pressure Medical Center Systolic blood 118 mm[Hg] 118 mm[Hg] [facility] pressure [facility] Body temperature 36.309942 Kaylie 36.567381 [facility] Respiratory rate 18 /min 18 /min [facility] Oxygen 97 % 97 % [place] saturation in Medical Arterial blood Center by Pulse oximetry Heart rate 69 /min 69 /min [facility] Diastolic blood 78 mm[Hg] 78 mm[Hg] [facility] Systolic blood 133 mm[Hg] 133 mm[Hg] [facility] Body temperature 37.401708 Kaylie 37.283042 [facility] Respiratory rate 17 /min 17 /min [facility] Oxygen 95 % 95 % [place] saturation in Medical Arterial blood Center by Pulse oximetry Heart rate 71 /min 71 /min [facility] Diastolic blood 70 mm[Hg] 70 mm[Hg] [facility] [place] Systolic blood 126 mm[Hg] 126 mm[Hg] [facility] Body temperature 36.662201 Kaylie 36.573762 [facility] Respiratory rate 17 /min 17 /min [facility] Oxygen 96 % 96 % [place] saturation in Medical Arterial blood Center by Pulse oximetry Heart rate 93 /min 93 /min [facility] Diastolic blood 77 mm[Hg] 77 mm[Hg] [facility] Systolic blood 131 mm[Hg] 131 mm[Hg] [facility] Body weight 118.510830 kg 118.859101 kg [facility] [place] Body temperature 36.785381 Kaylie 36.532094 [facility] Respiratory rate 18 /min 18 /min [facility] Oxygen 98 % 98 % [place] saturation in Medical Arterial blood Center by Pulse oximetry Heart rate 87 /min 87 /min [facility] Diastolic blood 71 mm[Hg] 71 mm[Hg] [facility] Systolic blood 129 mm[Hg] 129 mm[Hg] [facility] Body temperature 36.866368 Kaylie 36.827203 [facility] Respiratory rate 17 /min 17 /min [facility] Oxygen 98 % 98 % [place] saturation in Medical Arterial blood Center by Pulse oximetry Heart rate 78 /min 78 /min [facility] Diastolic blood 64 mm[Hg] 64 mm[Hg] [facility] Systolic blood 122 mm[Hg] 122 mm[Hg] [facility] Body weight 90.955648 kg 90.938894 kg [facility] Body temperature 36.966141 Kaylie 36.456138 [facility] Respiratory rate 18 /min 18 /min [facility] Oxygen 90 % 90 % [place] saturation in Medical Arterial blood Center by Pulse oximetry Heart rate 85 /min 85 /min [facility] Body height 172.157337 cm 172.035178 cm [facility] Diastolic blood 53 mm[Hg] 53 mm[Hg] [facility] pressure Medical Center Systolic blood 117 mm[Hg] 117 mm[Hg] [facility] Body mass index 30.1 kg/m2 30.1 kg/m2 [facility] (BMI) [Ratio] Medical Center Body temperature 36.152239 Kaylie 36.982221 [facility] Respiratory rate 18 /min 18 /min [facility] Oxygen 99 % 99 % [place] saturation in Medical Arterial blood Center by Pulse oximetry Heart rate 78 /min 78 /min [facility] Diastolic blood 78 mm[Hg] 78 mm[Hg] [facility] Systolic blood 145 mm[Hg] 145 mm[Hg] [facility] Body temperature 36.738053 Kaylie 36.174250 [facility] Respiratory rate 18 /min 18 /min [facility] Oxygen 99 % 99 % [place] saturation in Medical Arterial blood Center by Pulse oximetry Heart rate 87 /min 87 /min [facility] Diastolic blood 76 mm[Hg] 76 mm[Hg] [facility] Systolic blood 142 mm[Hg] 142 mm[Hg] [facility] Body temperature 36.549717 Kaylie 36.931403 [facility] Respiratory rate 18 /min 18 /min [facility] Oxygen 98 % 98 % [place] saturation in Medical Arterial blood Center by Pulse oximetry Heart rate 97 /min 97 /min [facility] Diastolic blood 86 mm[Hg] 86 mm[Hg] [facility] Systolic blood 145 mm[Hg] 145 mm[Hg] [facility] Body temperature 36.582437 Kaylie 36.077133 [facility] Respiratory rate 19 /min 19 /min [facility] Oxygen 95 % 95 % [place] saturation in Medical Arterial blood Center by Pulse oximetry Heart rate 99 /min 99 /min [facility] Diastolic blood 82 mm[Hg] 82 mm[Hg] [facility] pressure Medical Center Systolic blood 141 mm[Hg] 141 mm[Hg] [facility] [place] Body temperature 36.938323 Kaylie 36.054510 [facility] Respiratory rate 18 /min 18 /min [facility] Oxygen 97 % 97 % [place] saturation in Medical Arterial blood Center by Pulse oximetry Heart rate 102 /min 102 /min [facility] Diastolic blood 87 mm[Hg] 87 mm[Hg] [facility] Systolic blood 145 mm[Hg] 145 mm[Hg] [facility] Body temperature 36.008891 Kaylei 36.650607 [facility] Respiratory rate 18 /min 18 /min [facility] Oxygen 98 % 98 % [place] saturation in Medical Arterial blood Center by Pulse oximetry Heart rate 89 /min 89 /min [facility] Diastolic blood 77 mm[Hg] 77 mm[Hg] [facility] Systolic blood 138 mm[Hg] 138 mm[Hg] [facility] Body temperature 36.884961 Kaylie 36.171959 [facility] Respiratory rate 17 /min 17 /min [facility] Oxygen 98 % 98 % [place] saturation in Medical Arterial blood Center by Pulse oximetry Heart rate 80 /min 80 /min [facility] Diastolic blood 80 mm[Hg] 80 mm[Hg] [facility] pressure Medical Center Systolic blood 128 mm[Hg] 128 mm[Hg] [facility] Body temperature 36.733341 Kaylie 36.973165 [facility] Respiratory rate 18 /min 18 /min [facility] Oxygen 96 % 96 % [place] saturation in Medical Arterial blood Center by Pulse oximetry Heart rate 78 /min 78 /min [facility] Diastolic blood 79 mm[Hg] 79 mm[Hg] [facility] Systolic blood 134 mm[Hg] 134 mm[Hg] [facility] Body temperature 37.155052 Kaylie 37.284088 [facility] Respiratory rate 18 /min 18 /min [facility] Oxygen 95 % 95 % [place] saturation in Medical Arterial blood Center by Pulse oximetry Heart rate 89 /min 89 /min [facility] Diastolic blood 86 mm[Hg] 86 mm[Hg] [facility] Systolic blood 135 mm[Hg] 135 mm[Hg] [facility] Body temperature 36.979941 Kaylie 36.766292 [facility] Respiratory rate 17 /min 17 /min [facility] Oxygen 95 % 95 % [place] saturation in Medical Arterial blood Center by Pulse oximetry Heart rate 84 /min 84 /min [facility] Diastolic blood 84 mm[Hg] 84 mm[Hg] [facility] [place] Systolic blood 153 mm[Hg] 153 mm[Hg] [facility] Body temperature 36.584050 Kaylie 36.702413 [facility] Respiratory rate 18 /min 18 /min [facility] Oxygen 98 % 98 % [place] saturation in Medical Arterial blood Center by Pulse oximetry Heart rate 78 /min 78 /min [facility] Diastolic blood 81 mm[Hg] 81 mm[Hg] [facility] [place] Systolic blood 152 mm[Hg] 152 mm[Hg] [facility] Body temperature 36.101396 Kaylie 36.143328 [facility] Respiratory rate 18 /min 18 /min [facility] Oxygen 93 % 93 % [place] saturation in Medical Arterial blood Center by Pulse oximetry Heart rate 96 /min 96 /min [facility] Diastolic blood 63 mm[Hg] 63 mm[Hg] [facility] Systolic blood 140 mm[Hg] 140 mm[Hg] [facility] [place] Body temperature 36.564448 Kaylie 36.913002 [facility] Respiratory rate 18 /min 18 /min [facility] Oxygen 95 % 95 % [place] saturation in Medical Arterial blood Center by Pulse oximetry Heart rate 67 /min 67 /min [facility] Diastolic blood 89 mm[Hg] 89 mm[Hg] [facility] pressure Medical Center Systolic blood 145 mm[Hg] 145 mm[Hg] [facility] Body temperature 36.805497 Kaylie 36.402426 [facility] Respiratory rate 19 /min 19 /min [facility] Oxygen 96 % 96 % [place] saturation in Medical Arterial blood Center by Pulse oximetry Heart rate 80 /min 80 /min [facility] Diastolic blood 94 mm[Hg] 94 mm[Hg] [facility] Systolic blood 148 mm[Hg] 148 mm[Hg] [facility] Body temperature 36.913946 Kaylie 36.197642 [facility] Respiratory rate 18 /min 18 /min [facility] Oxygen 95 % 95 % [place] saturation in Medical Arterial blood Center by Pulse oximetry Heart rate 81 /min 81 /min [facility] Diastolic blood 82 mm[Hg] 82 mm[Hg] [facility] Systolic blood 138 mm[Hg] 138 mm[Hg] [facility] Oxygen 96 % 96 % [place] saturation in Medical Arterial blood Center by Pulse oximetry Heart rate 78 /min 78 /min [facility] Diastolic blood 86 mm[Hg] 86 mm[Hg] [facility] Systolic blood 137 mm[Hg] 137 mm[Hg] [facility] [place] Body temperature 36.589519 Kaylie 36.498927 [facility] Respiratory rate 18 /min 18 /min [facility] Body temperature 36.464202 Kaylie 36.173787 [facility] Respiratory rate 16 /min 16 /min [facility] Oxygen 96 % 96 % [place] saturation in Medical Arterial blood Center by Pulse oximetry Heart rate 80 /min 80 /min [facility] Diastolic blood 80 mm[Hg] 80 mm[Hg] [facility] Systolic blood 136 mm[Hg] 136 mm[Hg] [facility] Body temperature 36.157711 Kaylie 36.028871 [facility] Respiratory rate 18 /min 18 /min [facility] Oxygen 97 % 97 % [place] saturation in Medical Arterial blood Center by Pulse oximetry Heart rate 87 /min 87 /min [facility] Diastolic blood 84 mm[Hg] 84 mm[Hg] [facility] pressure Medical Center Systolic blood 133 mm[Hg] 133 mm[Hg] [facility] Body temperature 37.270336 Kaylie 37.830456 [facility] Respiratory rate 18 /min 18 /min [facility] Oxygen 95 % 95 % [place] saturation in Medical Arterial blood Center by Pulse oximetry Heart rate 96 /min 96 /min [facility] Diastolic blood 80 mm[Hg] 80 mm[Hg] [facility] [place] Systolic blood 146 mm[Hg] 146 mm[Hg] [facility] Body temperature 36.833849 Kaylie 36.002553 [facility] Respiratory rate 18 /min 18 /min [facility] Oxygen 98 % 98 % [place] saturation in Medical Arterial blood Center by Pulse oximetry Heart rate 96 /min 96 /min [facility] Diastolic blood 79 mm[Hg] 79 mm[Hg] [facility] [place] Systolic blood 144 mm[Hg] 144 mm[Hg] [facility] Body temperature 36.384047 Kaylie 36.925188 [facility] Respiratory rate 18 /min 18 /min [facility] Oxygen 99 % 99 % [place] saturation in Medical Arterial blood Center by Pulse oximetry Heart rate 85 /min 85 /min [facility] Diastolic blood 71 mm[Hg] 71 mm[Hg] [facility] [place] Systolic blood 129 mm[Hg] 129 mm[Hg] [facility] Body temperature 36.376504 Kaylie 36.783677 [facility] Respiratory rate 18 /min 18 /min [facility] Oxygen 98 % 98 % [place] saturation in Medical Arterial blood Center by Pulse oximetry Heart rate 96 /min 96 /min [facility] Diastolic blood 65 mm[Hg] 65 mm[Hg] [facility] [place] Systolic blood 145 mm[Hg] 145 mm[Hg] [facility] [place] Body temperature 36.890130 Kaylie 36.109011 [facility] Respiratory rate 17 /min 17 /min [facility] Oxygen 98 % 98 % [place] saturation in Medical Arterial blood Center by Pulse oximetry Heart rate 90 /min 90 /min [facility] Diastolic blood 74 mm[Hg] 74 mm[Hg] [facility] pressure Medical Center Systolic blood 123 mm[Hg] 123 mm[Hg] [facility] Body temperature 37.999445 Kaylie 37.969467 [facility] Heart rate 92 /min 92 /min [facility] Diastolic blood 62 mm[Hg] 62 mm[Hg] [facility] pressure Medical Center Systolic blood 99 mm[Hg] 99 mm[Hg] [facility] Body temperature 36.737538 Kaylie 36.804098 [facility] Respiratory rate 20 /min 20 /min [facility] Oxygen 85 % 85 % [place] saturation in Medical Arterial blood Center by Pulse oximetry Heart rate 100 /min 100 /min [facility] Diastolic blood 63 mm[Hg] 63 mm[Hg] [facility] pressure Medical Center Systolic blood 127 mm[Hg] 127 mm[Hg] [facility] [place] Body temperature 36.138674 Kaylie 36.350714 [facility] Respiratory rate 17 /min 17 /min [facility] Oxygen 98 % 98 % [place] saturation in Medical Arterial blood Center by Pulse oximetry Heart rate 84 /min 84 /min [facility] Diastolic blood 80 mm[Hg] 80 mm[Hg] [facility] Systolic blood 132 mm[Hg] 132 mm[Hg] [facility] Body weight 80.371966 kg 80.913090 kg [facility] Body temperature 36.222821 Kaylie 36.199277 [facility] Respiratory rate 17 /min 17 /min [facility] Oxygen 98 % 98 % [place] saturation in Medical Arterial blood Center by Pulse oximetry Heart rate 84 /min 84 /min [facility] Body height 177.524646 cm 177.696048 cm [facility] Diastolic blood 80 mm[Hg] 80 mm[Hg] [facility] pressure Medical Center Systolic blood 127 mm[Hg] 127 mm[Hg] [facility] Body mass index 25.3 kg/m2 25.3 kg/m2 [facility] (BMI) [Ratio] Medical Center Body temperature 36.438249 Kaylie 36.841766 [facility] Respiratory rate 19 /min 19 /min [facility] Oxygen 95 % 95 % [place] saturation in Medical Arterial blood Center by Pulse oximetry Heart rate 90 /min 90 /min [facility] Diastolic blood 77 mm[Hg] 77 mm[Hg] [facility] pressure Medical Center Systolic blood 135 mm[Hg] 135 mm[Hg] [facility] Body temperature 36.589340 Kaylie 36.089252 [facility] Respiratory rate 18 /min 18 /min [facility] Oxygen 96 % 96 % [place] saturation in Medical Arterial blood Center by Pulse oximetry Heart rate 92 /min 92 /min [facility] Diastolic blood 68 mm[Hg] 68 mm[Hg] [facility] pressure Medical Center Systolic blood 126 mm[Hg] 126 mm[Hg] [facility] Body temperature 36.891418 Kaylie 36.888573 [facility] Respiratory rate 18 /min 18 /min [facility] Oxygen 96 % 96 % [place] saturation in Medical Arterial blood Center by Pulse oximetry Heart rate 80 /min 80 /min [facility] Diastolic blood 80 mm[Hg] 80 mm[Hg] [facility] pressure Medical Center Systolic blood 150 mm[Hg] 150 mm[Hg] [facility] Body temperature 36.421700 Kaylie 36.982231 [facility] Respiratory rate 18 /min 18 /min [facility] Oxygen 95 % 95 % [place] saturation in Medical Arterial blood Center by Pulse oximetry Heart rate 85 /min 85 /min [facility] Diastolic blood 91 mm[Hg] 91 mm[Hg] [facility] pressure Medical Center Systolic blood 148 mm[Hg] 148 mm[Hg] [facility] Body weight 90.322734 kg 90.537422 kg [facility] Measured [facility] Body temperature 37.207511 Kaylie 37.973266 [facility] Respiratory rate 18 /min 18 /min [facility] Oxygen 94 % 94 % [place] saturation in Medical Arterial blood Center by Pulse oximetry Heart rate 84 /min 84 /min [facility] Body height 160.090175 cm 160.037162 cm [facility] Diastolic blood 64 mm[Hg] 64 mm[Hg] [facility] pressure Medical Center Systolic blood 98 mm[Hg] 98 mm[Hg] [facility] Body mass index 35.1 kg/m2 35.1 kg/m2 [facility] (BMI) [Ratio] Medical Center Body temperature 36.310767 Kaylie 36.663908 [facility] Respiratory rate 18 /min 18 /min [facility] Oxygen 93 % 93 % [facility] saturation in Medical Arterial blood Center by Pulse oximetry Heart rate 75 /min 75 /min [facility] Diastolic blood 65 mm[Hg] 65 mm[Hg] [facility] Systolic blood 119 mm[Hg] 119 mm[Hg] [facility] Body temperature 36.973427 Kaylie 36.011550 [facility] Respiratory rate 18 /min 18 /min [facility] Oxygen 95 % 95 % [facility] saturation in Medical Arterial blood Center by Pulse oximetry Heart rate 94 /min 94 /min [facility] Diastolic blood 78 mm[Hg] 78 mm[Hg] [facility] [place] Systolic blood 131 mm[Hg] 131 mm[Hg] [facility] Body temperature 36.323787 Kaylie 36.357975 [facility] Respiratory rate 18 /min 18 /min [facility] Heart rate 99 /min 99 /min [facility] Diastolic blood 72 mm[Hg] 72 mm[Hg] [facility] Systolic blood 127 mm[Hg] 127 mm[Hg] [facility] Body temperature 36.878164 Kaylie 36.253719 [facility] Respiratory rate 18 /min 18 /min [facility] Oxygen 96 % 96 % [facility] saturation in Medical Arterial blood Center by Pulse oximetry Heart rate 80 /min 80 /min [facility] Diastolic blood 62 mm[Hg] 62 mm[Hg] [facility] Systolic blood 113 mm[Hg] 113 mm[Hg] [facility] Body temperature 36.894912 Kaylie 36.299656 [facility] Respiratory rate 18 /min 18 /min [facility] Oxygen 98 % 98 % [place] saturation in Medical Arterial blood Center by Pulse oximetry Heart rate 76 /min 76 /min [facility] Diastolic blood 45 mm[Hg] 45 mm[Hg] [facility] pressure Medical Center Systolic blood 90 mm[Hg] 90 mm[Hg] [facility] Body temperature 36.586594 Kaylie 36.716125 [facility] Respiratory rate 18 /min 18 /min [facility] Oxygen 98 % 98 % [place] saturation in Medical Arterial blood Center by Pulse oximetry Heart rate 86 /min 86 /min [facility] Diastolic blood 66 mm[Hg] 66 mm[Hg] [facility] Systolic blood 114 mm[Hg] 114 mm[Hg] [facility] [place] Body temperature 36.416004 Kaylie 36.413527 [facility] Respiratory rate 18 /min 18 /min [facility] Oxygen 98 % 98 % [place] saturation in Medical Arterial blood Center by Pulse oximetry Heart rate 87 /min 87 /min [facility] Diastolic blood 99 mm[Hg] 99 mm[Hg] [facility] pressure Medical Center Systolic blood 151 mm[Hg] 151 mm[Hg] [facility] [place] Body temperature 36.149153 Kaylie 36.214780 [facility] Respiratory rate 19 /min 19 /min [facility] Oxygen 97 % 97 % [place] saturation in Medical Arterial blood Center by Pulse oximetry Heart rate 77 /min 77 /min [facility] Diastolic blood 71 mm[Hg] 71 mm[Hg] [facility] pressure Medical Center Systolic blood 131 mm[Hg] 131 mm[Hg] [facility] Body temperature 37.115516 Kaylie 37.351998 [facility] Respiratory rate 20 /min 20 /min [facility] Heart rate 99 /min 99 /min [facility] Diastolic blood 77 mm[Hg] 77 mm[Hg] [facility] pressure Medical Center Systolic blood 142 mm[Hg] 142 mm[Hg] [facility] Body temperature 37.846715 Kaylie 37.713320 [facility] Respiratory rate 18 /min 18 /min [facility] Heart rate 89 /min 89 /min [facility] Diastolic blood 77 mm[Hg] 77 mm[Hg] [facility] pressure Medical Center Systolic blood 125 mm[Hg] 125 mm[Hg] [facility] Body temperature 36.239473 Kaylie 36.919558 [facility] Respiratory rate 18 /min 18 /min [facility] Oxygen 100 % 100 % [place] saturation in Medical Arterial blood Center by Pulse oximetry Heart rate 93 /min 93 /min [facility] Body temperature 37.828193 Kaylie 37.102509 [facility] Respiratory rate 18 /min 18 /min [facility] Oxygen 95 % 95 % [place] saturation in Medical Arterial blood Center by Pulse oximetry Heart rate 94 /min 94 /min [facility] Diastolic blood 55 mm[Hg] 55 mm[Hg] [facility] [place] Systolic blood 117 mm[Hg] 117 mm[Hg] [facility] Body temperature 36.724422 Kaylie 36.802507 Kay[facility] Respiratory rate 18 /min 18 /min [facility] Oxygen 98 % 98 % [place] saturation in Medical Arterial blood Center by Pulse oximetry Heart rate 78 /min 78 /min [facility] Diastolic blood 78 mm[Hg] 78 mm[Hg] [facility] [place] Systolic blood 132 mm[Hg] 132 mm[Hg] [facility] Body temperature 36.728561 Kaylie 36.751228 [facility] Respiratory rate 17 /min 17 /min [facility] Oxygen 98 % 98 % [place] saturation in Medical Arterial blood Center by Pulse oximetry Heart rate 76 /min 76 /min [facility] Diastolic blood 67 mm[Hg] 67 mm[Hg] [facility] Systolic blood 138 mm[Hg] 138 mm[Hg] [facility] Body temperature 37.710230 Kaylie 37.805761 [facility] Respiratory rate 18 /min 18 /min [facility] Oxygen 99 % 99 % [place] saturation in Medical Arterial blood Center by Pulse oximetry Heart rate 82 /min 82 /min [facility] Diastolic blood 90 mm[Hg] 90 mm[Hg] [facility] Systolic blood 143 mm[Hg] 143 mm[Hg] [facility] Body temperature 36.206392 Kaylie 36.945922 [facility] Respiratory rate 18 /min 18 /min [facility] Oxygen 99 % 99 % [place] saturation in Medical Arterial blood Center by Pulse oximetry Heart rate 87 /min 87 /min [facility] Diastolic blood 78 mm[Hg] 78 mm[Hg] [facility] [place] Systolic blood 146 mm[Hg] 146 mm[Hg] [facility] [place] Body temperature 36.625000 Kaylie 36.121871 [facility] Respiratory rate 18 /min 18 /min [facility] Oxygen 97 % 97 % [place] saturation in Medical Arterial blood Center by Pulse oximetry Heart rate 80 /min 80 /min [facility] Diastolic blood 81 mm[Hg] 81 mm[Hg] [facility] [place] Systolic blood 136 mm[Hg] 136 mm[Hg] [facility] Body temperature 36.105731 Kaylie 36.867269 [facility] Respiratory rate 18 /min 18 /min [facility] Oxygen 98 % 98 % [place] saturation in Medical Arterial blood Center by Pulse oximetry Heart rate 85 /min 85 /min [facility] Diastolic blood 78 mm[Hg] 78 mm[Hg] [facility] [place] Systolic blood 138 mm[Hg] 138 mm[Hg] [facility] Body temperature 36.537817 Kaylie 36.128455 [facility] Respiratory rate 18 /min 18 /min [facility] Oxygen 95 % 95 % [place] saturation in Medical Arterial blood Center by Pulse oximetry Heart rate 88 /min 88 /min [facility] Diastolic blood 86 mm[Hg] 86 mm[Hg] [facility] Systolic blood 141 mm[Hg] 141 mm[Hg] [facility] Body temperature 36.963370 Kaylie 36.969710 [facility] Respiratory rate 18 /min 18 /min [facility] Oxygen 97 % 97 % [place] saturation in Medical Arterial blood Center by Pulse oximetry Heart rate 83 /min 83 /min [facility] Diastolic blood 89 mm[Hg] 89 mm[Hg] [facility] pressure [facility] Center Systolic blood 149 mm[Hg] 149 mm[Hg] [facility] Body temperature 36.149949 Kaylie 36.252416 [facility] Respiratory rate 17 /min 17 /min [facility] Oxygen 96 % 96 % [place] saturation in Medical Arterial blood Center by Pulse oximetry Heart rate 88 /min 88 /min [facility] Diastolic blood 94 mm[Hg] 94 mm[Hg] [facility] Systolic blood 151 mm[Hg] 151 mm[Hg] [facility] Body temperature 36.352570 Kaylie 36.365404 [facility] Respiratory rate 17 /min 17 /min [facility] Oxygen 95 % 95 % [place] saturation in Medical Arterial blood Center by Pulse oximetry Heart rate 84 /min 84 /min [facility] Diastolic blood 92 mm[Hg] 92 mm[Hg] [facility] pressure [facility] Center Systolic blood 148 mm[Hg] 148 mm[Hg] [facility] [place] Body temperature 36.907108 Kaylie 36.235320 [facility] Respiratory rate 20 /min 20 /min [facility] Oxygen 100 % 100 % [place] saturation in Medical Arterial blood Center by Pulse oximetry Heart rate 90 /min 90 /min [facility] Diastolic blood 88 mm[Hg] 88 mm[Hg] [facility] Systolic blood 144 mm[Hg] 144 mm[Hg] [facility] Body temperature 37.713640 Kaylie 37.020870 [facility] Respiratory rate 18 /min 18 /min [facility] Heart rate 85 /min 85 /min [facility] Diastolic blood 95 mm[Hg] 95 mm[Hg] [facility] pressure [facility] Center Systolic blood 151 mm[Hg] 151 mm[Hg] [facility] Body temperature 36.897151 Kaylie 36.058470 [facility] Respiratory rate 16 /min 16 /min [facility] Oxygen 95 % 95 % [place] saturation in Medical Arterial blood Center by Pulse oximetry Heart rate 79 /min 79 /min [facility] Diastolic blood 85 mm[Hg] 85 mm[Hg] [facility] pressure [facility] Center Systolic blood 148 mm[Hg] 148 mm[Hg] [facility] Body temperature 37.698612 Kaylie 37.662789 [facility] Heart rate 88 /min 88 /min [facility] Diastolic blood 76 mm[Hg] 76 mm[Hg] [facility] pressure [facility] Center Systolic blood 124 mm[Hg] 124 mm[Hg] [facility] Body temperature 36.232425 Kaylie 36.900630 [facility] Respiratory rate 17 /min 17 /min [facility] Oxygen 98 % 98 % [place] saturation in Medical Arterial blood Center by Pulse oximetry Heart rate 111 /min 111 /min [facility] Diastolic blood 44 mm[Hg] 44 mm[Hg] [facility] [place] Systolic blood 115 mm[Hg] 115 mm[Hg] [facility] Body temperature 37.566612 Kaylie 37.148333 [facility] Respiratory rate 18 /min 18 /min [facility] Oxygen 97 % 97 % [place] saturation in Medical Arterial blood Center by Pulse oximetry Heart rate 81 /min 81 /min [facility] Diastolic blood 89 mm[Hg] 89 mm[Hg] [facility] Systolic blood 145 mm[Hg] 145 mm[Hg] [facility] [place] Body temperature 37.270957 Kaylie 37.359108 [facility] Respiratory rate 18 /min 18 /min [facility] Oxygen 99 % 99 % [place] saturation in Medical Arterial blood Center by Pulse oximetry Heart rate 78 /min 78 /min [facility] Diastolic blood 68 mm[Hg] 68 mm[Hg] [facility] pressure Medical Center Systolic blood 132 mm[Hg] 132 mm[Hg] [facility] [place] Body temperature 37.795368 Kaylie 37.267324 [facility] Respiratory rate 20 /min 20 /min [facility] Heart rate 86 /min 86 /min [facility] Diastolic blood 69 mm[Hg] 69 mm[Hg] [facility] Systolic blood 127 mm[Hg] 127 mm[Hg] [facility] Body temperature 37.665464 Kaylie 37.839544 [facility] Respiratory rate 16 /min 16 /min [facility] Oxygen 93 % 93 % [place] saturation in Medical Arterial blood Center by Pulse oximetry Heart rate 95 /min 95 /min [facility] Diastolic blood 71 mm[Hg] 71 mm[Hg] [facility] Systolic blood 139 mm[Hg] 139 mm[Hg] [facility] Body temperature 36.651217 Kaylie 36.271267 [facility] Respiratory rate 18 /min 18 /min [facility] Oxygen 72 % 72 % [place] saturation in Medical Arterial blood Center by Pulse oximetry Heart rate 72 /min 72 /min [facility] Diastolic blood 61 mm[Hg] 61 mm[Hg] [facility] Systolic blood 114 mm[Hg] 114 mm[Hg] [facility] Body weight 104.675357 kg 104.791781 kg [facility] Body temperature 37.201502 Kaylie 37.846406 [facility] Respiratory rate 17 /min 17 /min [facility] Oxygen 94 % 94 % [place] saturation in Medical Arterial blood Center by Pulse oximetry Heart rate 83 /min 83 /min [facility] Diastolic blood 71 mm[Hg] 71 mm[Hg] [facility] Systolic blood 119 mm[Hg] 119 mm[Hg] [facility] Body temperature 36.357902 Kaylie 36.886558 [facility] Respiratory rate 18 /min 18 /min [facility] Oxygen 97 % 97 % [place] saturation in Medical Arterial blood Center by Pulse oximetry Heart rate 75 /min 75 /min [facility] Diastolic blood 74 mm[Hg] 74 mm[Hg] [facility] Systolic blood 128 mm[Hg] 128 mm[Hg] [facility] Body temperature 36.991673 Kaylie 36.775546 [facility] Respiratory rate 18 /min 18 /min [facility] Oxygen 95 % 95 % [place] saturation in Medical Arterial blood Center by Pulse oximetry Heart rate 74 /min 74 /min [facility] Diastolic blood 70 mm[Hg] 70 mm[Hg] [facility] Systolic blood 120 mm[Hg] 120 mm[Hg] [facility] Body temperature 36.991872 Kaylie 36.404734 [facility] Respiratory rate 16 /min 16 /min [facility] Oxygen 96 % 96 % [place] saturation in Medical Arterial blood Center by Pulse oximetry Heart rate 82 /min 82 /min [facility] Diastolic blood 72 mm[Hg] 72 mm[Hg] [facility] pressure Medical Center Systolic blood 126 mm[Hg] 126 mm[Hg] [facility] Body temperature 36.708289 Kaylie 36.514944 [facility] Respiratory rate 18 /min 18 /min [facility] Heart rate 83 /min 83 /min [facility] Diastolic blood 79 mm[Hg] 79 mm[Hg] [facility] Systolic blood 134 mm[Hg] 134 mm[Hg] [facility] Body temperature 36.491092 Kaylie 36.794822 [facility] Respiratory rate 18 /min 18 /min [facility] Oxygen 100 % 100 % [place] saturation in Medical Arterial blood Center by Pulse oximetry Heart rate 80 /min 80 /min [facility] Diastolic blood 78 mm[Hg] 78 mm[Hg] [facility] Center Systolic blood 130 mm[Hg] 130 mm[Hg] [facility] Body weight 90.787896 kg 90.021964 kg [facility] Oxygen 98 % 98 % [place] saturation in Medical Arterial blood Center by Pulse oximetry Body height 182.765208 cm 182.419876 cm [facility] Body mass index 27.1 kg/m2 27.1 kg/m2 [facility] (BMI) [Ratio] Medical Center Body temperature 36.346361 Kaylie 36.227522 [facility] Respiratory rate 18 /min 18 /min [facility] Oxygen 99 % 99 % [place] saturation in Medical Arterial blood Center by Pulse oximetry Heart rate 82 /min 82 /min [facility] Diastolic blood 78 mm[Hg] 78 mm[Hg] [facility] Systolic blood 146 mm[Hg] 146 mm[Hg] [facility] Body temperature 37.587371 Kaylie 37.774072 [facility] Respiratory rate 18 /min 18 /min [facility] Oxygen 97 % 97 % [place] saturation in Medical Arterial blood Center by Pulse oximetry Heart rate 97 /min 97 /min [facility] Diastolic blood 88 mm[Hg] 88 mm[Hg] [facility] Systolic blood 154 mm[Hg] 154 mm[Hg] [facility] Oxygen 98 % 98 % [place] saturation in Medical Arterial blood Center by Pulse oximetry Heart rate 96 /min 96 /min [facility] Diastolic blood 91 mm[Hg] 91 mm[Hg] [facility] [place] Systolic blood 142 mm[Hg] 142 mm[Hg] [facility] [place] Body temperature 37.191783 Kaylie 37.983777 [facility] Respiratory rate 18 /min 18 /min [facility] Body temperature 37.116685 Kaylie 37.796136 [facility] Respiratory rate 19 /min 19 /min [facility] Oxygen 95 % 95 % [place] saturation in Medical Arterial blood Center by Pulse oximetry Heart rate 101 /min 101 /min [facility] Diastolic blood 63 mm[Hg] 63 mm[Hg] [facility] [place] Systolic blood 116 mm[Hg] 116 mm[Hg] [facility] Body temperature 36.353347 Kaylie 36.016886 [facility] Respiratory rate 16 /min 16 /min [facility] Oxygen 98 % 98 % [place] saturation in Medical Arterial blood Center by Pulse oximetry Heart rate 103 /min 103 /min [facility] Diastolic blood 81 mm[Hg] 81 mm[Hg] [facility] Systolic blood 140 mm[Hg] 140 mm[Hg] [facility] Body temperature 36.527969 Kaylie 36.727655 [facility] Respiratory rate 17 /min 17 /min [facility] Oxygen 98 % 98 % [place] saturation in Medical Arterial blood Center by Pulse oximetry Heart rate 73 /min 73 /min [facility] Diastolic blood 68 mm[Hg] 68 mm[Hg] [facility] Systolic blood 129 mm[Hg] 129 mm[Hg] [facility] Body temperature 36.319280 Kaylie 36.173688 [facility] Respiratory rate 17 /min 17 /min [facility] Oxygen 98 % 98 % [place] saturation in Medical Arterial blood Center by Pulse oximetry Heart rate 72 /min 72 /min [facility] Diastolic blood 65 mm[Hg] 65 mm[Hg] [facility] Systolic blood 124 mm[Hg] 124 mm[Hg] [facility] Body weight 90.264137 kg 90.172991 kg [facility] [place] Body temperature 36.276452 Kaylie 36.527097 [facility] Respiratory rate 17 /min 17 /min [facility] Oxygen 97 % 97 % [place] saturation in Medical Arterial blood Center by Pulse oximetry Heart rate 74 /min 74 /min [facility] Body height 175.088547 cm 175.137605 cm [facility] Diastolic blood 58 mm[Hg] 58 mm[Hg] [facility] Systolic blood 95 mm[Hg] 95 mm[Hg] [facility] Body mass index 29.5 kg/m2 29.5 kg/m2 [facility] (BMI) [Ratio] Medical Center Body temperature 36.670650 Kaylie 36.058712 [facility] Respiratory rate 1 /min 1 /min [facility] Oxygen 97 % 97 % [place] saturation in Medical Arterial blood Center by Pulse oximetry Heart rate 88 /min 88 /min [facility] Diastolic blood 72 mm[Hg] 72 mm[Hg] [facility] Systolic blood 138 mm[Hg] 138 mm[Hg] [facility] Body temperature 37.872514 Kaylie 37.845926 [facility] Respiratory rate 18 /min 18 /min [facility] Oxygen 99 % 99 % [place] saturation in Medical Arterial blood Center by Pulse oximetry Heart rate 69 /min 69 /min [facility] Diastolic blood 85 mm[Hg] 85 mm[Hg] [facility] Systolic blood 137 mm[Hg] 137 mm[Hg] [facility] Body temperature 37.500404 Kaylie 37.638760 [facility] Respiratory rate 18 /min 18 /min [facility] Oxygen 98 % 98 % [place] saturation in Medical Arterial blood Center by Pulse oximetry Heart rate 82 /min 82 /min [facility] Diastolic blood 81 mm[Hg] 81 mm[Hg] [facility] pressure Medical Center Systolic blood 141 mm[Hg] 141 mm[Hg] [facility] [place] Body temperature 36.402633 Kaylie 36.279727 [facility] Respiratory rate 18 /min 18 /min [facility] Oxygen 98 % 98 % [place] saturation in Medical Arterial blood Center by Pulse oximetry Heart rate 89 /min 89 /min [facility] Diastolic blood 79 mm[Hg] 79 mm[Hg] [facility] [place] Systolic blood 134 mm[Hg] 134 mm[Hg] [facility] Systolic blood 140 mm[Hg] 140 mm[Hg] [facility] [place] Body temperature 36.124771 Kaylie 36.254528 [facility] Respiratory rate 18 /min 18 /min [facility] Oxygen 97 % 97 % [place] saturation in Medical Arterial blood Center by Pulse oximetry Heart rate 88 /min 88 /min [facility] Diastolic blood 72 mm[Hg] 72 mm[Hg] [facility] [place] Body temperature 36.283237 Kaylie 36.202524 [facility] Respiratory rate 18 /min 18 /min [facility] Oxygen 99 % 99 % [place] saturation in Medical Arterial blood Center by Pulse oximetry Heart rate 89 /min 89 /min [facility] Diastolic blood 71 mm[Hg] 71 mm[Hg] [facility] Systolic blood 144 mm[Hg] 144 mm[Hg] [facility] [place] Body temperature 37.379171 Kaylie 37.957603 [facility] Respiratory rate 17 /min 17 /min [facility] Oxygen 99 % 99 % [place] saturation in Medical Arterial blood Center by Pulse oximetry Heart rate 85 /min 85 /min [facility] Diastolic blood 68 mm[Hg] 68 mm[Hg] [facility] pressure Medical Center Systolic blood 132 mm[Hg] 132 mm[Hg] [facility] Body temperature 37.450664 Kaylie 37.896366 [facility] Respiratory rate 18 /min 18 /min [facility] Oxygen 98 % 98 % [place] saturation in Medical Arterial blood Center by Pulse oximetry Heart rate 78 /min 78 /min [facility] Diastolic blood 78 mm[Hg] 78 mm[Hg] [facility] Systolic blood 143 mm[Hg] 143 mm[Hg] [facility] Body temperature 36.870920 Kaylie 36.040267 [facility] Respiratory rate 18 /min 18 /min [facility] Oxygen 97 % 97 % [place] saturation in Medical Arterial blood Center by Pulse oximetry Heart rate 84 /min 84 /min [facility] Diastolic blood 81 mm[Hg] 81 mm[Hg] [facility] Systolic blood 144 mm[Hg] 144 mm[Hg] [facility] Body temperature 36.047056 Kaylie 36.691587 [facility] Respiratory rate 19 /min 19 /min [facility] Oxygen 98 % 98 % [place] saturation in Medical Arterial blood Center by Pulse oximetry Heart rate 82 /min 82 /min [facility] Diastolic blood 78 mm[Hg] 78 mm[Hg] [facility] Systolic blood 134 mm[Hg] 134 mm[Hg] [facility] [place] Body temperature 36.657552 Kaylie 36.755994 [facility] Respiratory rate 18 /min 18 /min [facility] Oxygen 98 % 98 % [place] saturation in Medical Arterial blood Center by Pulse oximetry Heart rate 72 /min 72 /min [facility] Diastolic blood 79 mm[Hg] 79 mm[Hg] [facility] Systolic blood 135 mm[Hg] 135 mm[Hg] [facility] Oxygen 98 % 98 % [place] saturation in Medical Arterial blood Center by Pulse oximetry Heart rate 75 /min 75 /min [facility] Diastolic blood 71 mm[Hg] 71 mm[Hg] [facility] Systolic blood 130 mm[Hg] 130 mm[Hg] [facility] Body temperature 36.964127 Kaylie 36.862054 [facility] Respiratory rate 17 /min 17 /min [facility] Body temperature 36.559980 Kaylie 36.797198 [facility] Respiratory rate 18 /min 18 /min [facility] Oxygen 97 % 97 % [place] saturation in Medical Arterial blood Center by Pulse oximetry Heart rate 80 /min 80 /min [facility] Diastolic blood 78 mm[Hg] 78 mm[Hg] [facility] [place] Systolic blood 139 mm[Hg] 139 mm[Hg] [facility] Body temperature 36.772320 Kaylie 36.150651 [facility] Respiratory rate 17 /min 17 /min [facility] Oxygen 98 % 98 % [place] saturation in Medical Arterial blood Center by Pulse oximetry Heart rate 81 /min 81 /min [facility] Diastolic blood 75 mm[Hg] 75 mm[Hg] [facility] [place] Systolic blood 133 mm[Hg] 133 mm[Hg] [facility] Body temperature 36.482961 Kaylie 36.358595 [facility] Respiratory rate 18 /min 18 /min [facility] Oxygen 95 % 95 % [place] saturation in Medical Arterial blood Center by Pulse oximetry Heart rate 88 /min 88 /min [facility] Diastolic blood 84 mm[Hg] 84 mm[Hg] [facility] [place] Systolic blood 138 mm[Hg] 138 mm[Hg] [facility] Body temperature 36.331813 Kaylie 36.421997 [facility] Respiratory rate 17 /min 17 /min [facility] Oxygen 95 % 95 % [place] saturation in Medical Arterial blood Center by Pulse oximetry Heart rate 87 /min 87 /min [facility] Diastolic blood 84 mm[Hg] 84 mm[Hg] [facility] Systolic blood 140 mm[Hg] 140 mm[Hg] [facility] Body temperature 37.306937 Kaylie 37.863570 [facility] Oxygen 93 % 93 % [place] saturation in Medical Arterial blood Center by Pulse oximetry Heart rate 89 /min 89 /min [facility] Diastolic blood 76 mm[Hg] 76 mm[Hg] [facility] pressure Medical Center Systolic blood 123 mm[Hg] 123 mm[Hg] [facility] [place] Body temperature 36.757711 Kaylie 36.964418 [facility] Respiratory rate 16 /min 16 /min [facility] Oxygen 95 % 95 % [place] saturation in Medical Arterial blood Center by Pulse oximetry Heart rate 89 /min 89 /min [facility] Diastolic blood 76 mm[Hg] 76 mm[Hg] [facility] [place] Systolic blood 112 mm[Hg] 112 mm[Hg] [facility] [place] Body temperature 36.982525 Kaylie 36.347230 [facility] Respiratory rate 18 /min 18 /min [facility] Oxygen 98 % 98 % [place] saturation in Medical Arterial blood Center by Pulse oximetry Heart rate 82 /min 82 /min [facility] Diastolic blood 87 mm[Hg] 87 mm[Hg] [facility] [place] Systolic blood 123 mm[Hg] 123 mm[Hg] [facility] Body temperature 36.583978 Kaylie 36.257750 [facility] Respiratory rate 18 /min 18 /min [facility] Oxygen 98 % 98 % [place] saturation in Medical Arterial blood Center by Pulse oximetry Heart rate 82 /min 82 /min [facility] Diastolic blood 76 mm[Hg] 76 mm[Hg] [facility] Systolic blood 132 mm[Hg] 132 mm[Hg] [facility] Body temperature 36.548539 Kaylie 36.462215 [facility] Respiratory rate 18 /min 18 /min [facility] Oxygen 98 % 98 % [place] saturation in Medical Arterial blood Center by Pulse oximetry Heart rate 80 /min 80 /min [facility] Diastolic blood 90 mm[Hg] 90 mm[Hg] [facility] Systolic blood 138 mm[Hg] 138 mm[Hg] [facility] [place] Body temperature 36.966826 Kaylie 36.023096 [facility] Respiratory rate 17 /min 17 /min [facility] Oxygen 98 % 98 % [place] saturation in Medical Arterial blood Center by Pulse oximetry Heart rate 86 /min 86 /min [facility] Diastolic blood 68 mm[Hg] 68 mm[Hg] [facility] pressure Medical Center Systolic blood 130 mm[Hg] 130 mm[Hg] [facility] Body temperature 36.985241 Kaylie 36.406574 [facility] Respiratory rate 18 /min 18 /min [facility] Oxygen 95 % 95 % [place] saturation in Medical Arterial blood Center by Pulse oximetry Heart rate 83 /min 83 /min [facility] Diastolic blood 74 mm[Hg] 74 mm[Hg] [facility] pressure Medical Center Systolic blood 121 mm[Hg] 121 mm[Hg] [facility] pressure Medical Center Body weight 80.576548 kg 80.949338 kg [facility] Measured [facility] Body temperature 36.846615 Kaylie 36.818374 [facility] Respiratory rate 17 /min 17 /min [facility] Oxygen 99 % 99 % [place] saturation in Medical Arterial blood Center by Pulse oximetry Heart rate 85 /min 85 /min [facility] Body height 177.533909 cm 177.900640 cm [facility] Diastolic blood 92 mm[Hg] 92 mm[Hg] [facility] pressure Medical Center Systolic blood 144 mm[Hg] 144 mm[Hg] [facility] Body mass index 25.3 kg/m2 25.3 kg/m2 [facility] (BMI) [Ratio] Medical Center Body temperature 37.562596 Kaylie 37.141247 [facility] Respiratory rate 18 /min 18 /min [facility] Oxygen 95 % 95 % [place] saturation in Medical Arterial blood Center by Pulse oximetry Heart rate 95 /min 95 /min [facility] Diastolic blood 99 mm[Hg] 99 mm[Hg] [facility] pressure [facility] Center Systolic blood 156 mm[Hg] 156 mm[Hg] [facility] Body temperature 36.174977 Kaylie 36.084459 [facility] Respiratory rate 18 /min 18 /min [facility] Oxygen 95 % 95 % [place] saturation in Medical Arterial blood Center by Pulse oximetry Heart rate 89 /min 89 /min [facility] Diastolic blood 86 mm[Hg] 86 mm[Hg] [facility] pressure Medical Center Systolic blood 162 mm[Hg] 162 mm[Hg] [facility] Body temperature 37.446764 Kaylie 37.100345 [facility] Respiratory rate 18 /min 18 /min [facility] Oxygen 95 % 95 % [place] saturation in Medical Arterial blood Center by Pulse oximetry Heart rate 110 /min 110 /min [facility] Diastolic blood 77 mm[Hg] 77 mm[Hg] [facility] pressure Medical Center Systolic blood 146 mm[Hg] 146 mm[Hg] [facility] Body temperature 36.668146 Kaylie 36.421593 [facility] Oxygen 95 % 95 % [place] saturation in Medical Arterial blood Center by Pulse oximetry Heart rate 80 /min 80 /min [facility] Diastolic blood 69 mm[Hg] 69 mm[Hg] [facility] pressure Medical Center Systolic blood 144 mm[Hg] 144 mm[Hg] [facility] Body temperature 36.789859 Kaylie 36.750940 [facility] Respiratory rate 18 /min 18 /min [facility] Oxygen 95 % 95 % [place] saturation in Medical Arterial blood Center by Pulse oximetry Heart rate 60 /min 60 /min [facility] Diastolic blood 98 mm[Hg] 98 mm[Hg] [facility] Systolic blood 137 mm[Hg] 137 mm[Hg] [facility] Body temperature 36.681203 Kaylie 36.925473 [facility] Respiratory rate 17 /min 17 /min [facility] Oxygen 99 % 99 % [place] saturation in Medical Arterial blood Center by Pulse oximetry Heart rate 80 /min 80 /min [facility] Diastolic blood 78 mm[Hg] 78 mm[Hg] [facility] pressure Medical Center Systolic blood 132 mm[Hg] 132 mm[Hg] [facility] Body weight 90.322884 kg 90.645929 kg [facility] [place] Body temperature 36.320054 Kaylie 36.882417 [facility] Respiratory rate 19 /min 19 /min [facility] Oxygen 99 % 99 % [place] saturation in Medical Arterial blood Center by Pulse oximetry Heart rate 105 /min 105 /min [facility] Body height 177.811548 cm 177.884540 cm [facility] Diastolic blood 77 mm[Hg] 77 mm[Hg] [facility] pressure Medical Center Systolic blood 144 mm[Hg] 144 mm[Hg] [facility] Body mass index 28.4 kg/m2 28.4 kg/m2 [facility] (BMI) [Ratio] Medical Center Body temperature 37.113776 Kaylie 37.630384 [facility] Respiratory rate 18 /min 18 /min [facility] Oxygen 96 % 96 % [place] saturation in Medical Arterial blood Center by Pulse oximetry Heart rate 86 /min 86 /min [facility] Diastolic blood 86 mm[Hg] 86 mm[Hg] [facility] Systolic blood 146 mm[Hg] 146 mm[Hg] [facility] Body temperature 37.460902 Kaylie 37.360613 [facility] Respiratory rate 18 /min 18 /min [facility] Oxygen 96 % 96 % [place] saturation in Medical Arterial blood Center by Pulse oximetry Heart rate 87 /min 87 /min [facility] Diastolic blood 70 mm[Hg] 70 mm[Hg] [facility] Systolic blood 117 mm[Hg] 117 mm[Hg] [facility] Body temperature 36.250152 Kaylie 36.656226 [facility] Respiratory rate 18 /min 18 /min [facility] Oxygen 96 % 96 % [place] saturation in Medical Arterial blood Center by Pulse oximetry Heart rate 80 /min 80 /min [facility] Diastolic blood 82 mm[Hg] 82 mm[Hg] [facility] Systolic blood 133 mm[Hg] 133 mm[Hg] [facility] Body temperature 36.159102 Kaylie 36.335353 [facility] Respiratory rate 16 /min 16 /min [facility] Oxygen 97 % 97 % [place] saturation in Medical Arterial blood Center by Pulse oximetry Heart rate 93 /min 93 /min [facility] Diastolic blood 65 mm[Hg] 65 mm[Hg] [facility] Systolic blood 131 mm[Hg] 131 mm[Hg] [facility] Body temperature 36.529243 Kaylie 36.747344 [facility] Respiratory rate 16 /min 16 /min [facility] Oxygen 97 % 97 % [place] saturation in Medical Arterial blood Center by Pulse oximetry Heart rate 90 /min 90 /min [facility] Diastolic blood 70 mm[Hg] 70 mm[Hg] [facility] pressure Medical Center Systolic blood 122 mm[Hg] 122 mm[Hg] [facility] Body temperature 36.623402 Kaylie 36.101184 [facility] Respiratory rate 19 /min 19 /min [facility] Oxygen 95 % 95 % [place] saturation in Medical Arterial blood Center by Pulse oximetry Heart rate 92 /min 92 /min [facility] Diastolic blood 77 mm[Hg] 77 mm[Hg] [facility] [place] Systolic blood 128 mm[Hg] 128 mm[Hg] [facility] Body temperature 36.681771 Kaylie 36.331958 [facility] Respiratory rate 17 /min 17 /min [facility] Oxygen 98 % 98 % [place] saturation in Medical Arterial blood Center by Pulse oximetry Heart rate 75 /min 75 /min [facility] Diastolic blood 75 mm[Hg] 75 mm[Hg] [facility] [place] Systolic blood 139 mm[Hg] 139 mm[Hg] [facility] Body temperature 36.263866 Kaylie 36.732876 [facility] Respiratory rate 17 /min 17 /min [facility] Oxygen 97 % 97 % [place] saturation in Medical Arterial blood Center by Pulse oximetry Heart rate 81 /min 81 /min [facility] Diastolic blood 88 mm[Hg] 88 mm[Hg] [facility] Systolic blood 154 mm[Hg] 154 mm[Hg] [facility] Body temperature 36.678881 Kaylie 36.026321 [facility] Respiratory rate 18 /min 18 /min [facility] Oxygen 98 % 98 % [place] saturation in Medical Arterial blood Center by Pulse oximetry Heart rate 73 /min 73 /min [facility] Diastolic blood 71 mm[Hg] 71 mm[Hg] [facility] Systolic blood 129 mm[Hg] 129 mm[Hg] [facility] Body temperature 36.363266 Kaylie 36.306343 [facility] Respiratory rate 18 /min 18 /min [facility] Oxygen 91 % 91 % [place] saturation in Medical Arterial blood Center by Pulse oximetry Heart rate 71 /min 71 /min [facility] Diastolic blood 67 mm[Hg] 67 mm[Hg] [facility] Systolic blood 121 mm[Hg] 121 mm[Hg] [facility] [place] Body temperature 36.053796 Kaylie 36.920118 [facility] Respiratory rate 17 /min 17 /min [facility] Oxygen 95 % 95 % [place] saturation in Medical Arterial blood Center by Pulse oximetry Heart rate 99 /min 99 /min [facility] Diastolic blood 77 mm[Hg] 77 mm[Hg] [facility] [place] Systolic blood 149 mm[Hg] 149 mm[Hg] [facility] Body temperature 36.424455 Kaylie 36.079637 [facility] Respiratory rate 18 /min 18 /min [facility] Oxygen 96 % 96 % [place] saturation in Medical Arterial blood Center by Pulse oximetry Heart rate 54 /min 54 /min [facility] Diastolic blood 82 mm[Hg] 82 mm[Hg] [facility] [place] Systolic blood 127 mm[Hg] 127 mm[Hg] [facility] Body temperature 37.103166 Kaylie 37.810516 [facility] Respiratory rate 20 /min 20 /min [facility] Oxygen 94 % 94 % [place] saturation in Medical Arterial blood Center by Pulse oximetry Heart rate 101 /min 101 /min [facility] Diastolic blood 61 mm[Hg] 61 mm[Hg] [facility] Systolic blood 147 mm[Hg] 147 mm[Hg] [facility] Body temperature 37.374618 Kaylie 37.322924 [facility] Respiratory rate 20 /min 20 /min [facility] Oxygen 91 % 91 % [place] saturation in Medical Arterial blood Center by Pulse oximetry Heart rate 103 /min 103 /min [facility] Diastolic blood 56 mm[Hg] 56 mm[Hg] [facility] Systolic blood 122 mm[Hg] 122 mm[Hg] [facility] Body temperature 37.815933 Kaylie 37.745440 [facility] Respiratory rate 20 /min 20 /min [facility] Oxygen 91 % 91 % [place] saturation in Medical Arterial blood Center by Pulse oximetry Heart rate 103 /min 103 /min [facility] Diastolic blood 68 mm[Hg] 68 mm[Hg] [facility] Systolic blood 126 mm[Hg] 126 mm[Hg] [facility] Body weight 80.576291 kg 80.999252 kg [facility] [place] Body height 177.337285 cm 177.942973 cm [facility] Body mass index 25.3 kg/m2 25.3 kg/m2 [facility] (BMI) [Ratio] Medical Center Body temperature 36.083851 Kaylie 36.792133 [facility] Respiratory rate 16 /min 16 /min [facility] Oxygen 97 % 97 % [place] saturation in Medical Arterial blood Center by Pulse oximetry Heart rate 82 /min 82 /min [facility] Diastolic blood 78 mm[Hg] 78 mm[Hg] [facility] Systolic blood 132 mm[Hg] 132 mm[Hg] [facility] Body temperature 36.444418 Kaylie 36.721343 [facility] Respiratory rate 17 /min 17 /min [facility] Oxygen 97 % 97 % [place] saturation in Medical Arterial blood Center by Pulse oximetry Heart rate 85 /min 85 /min [facility] Diastolic blood 81 mm[Hg] 81 mm[Hg] [facility] Systolic blood 137 mm[Hg] 137 mm[Hg] [facility] Body temperature 36.631114 Kaylie 36.746540 [facility] Respiratory rate 18 /min 18 /min [facility] Oxygen 96 % 96 % [place] saturation in Medical Arterial blood Center by Pulse oximetry Heart rate 89 /min 89 /min [facility] Diastolic blood 75 mm[Hg] 75 mm[Hg] [facility] Systolic blood 131 mm[Hg] 131 mm[Hg] [facility] Body temperature 36.981480 Kaylie 36.100385 [facility] Respiratory rate 19 /min 19 /min [facility] Oxygen 95 % 95 % [place] saturation in Medical Arterial blood Center by Pulse oximetry Heart rate 97 /min 97 /min [facility] Diastolic blood 72 mm[Hg] 72 mm[Hg] [facility] Systolic blood 126 mm[Hg] 126 mm[Hg] [facility] Body temperature 36.281045 Kaylie 36.257207 [facility] Respiratory rate 20 /min 20 /min [facility] Oxygen 96 % 96 % [place] saturation in Medical Arterial blood Center by Pulse oximetry Heart rate 91 /min 91 /min [facility] Diastolic blood 82 mm[Hg] 82 mm[Hg] [facility] [place] Systolic blood 126 mm[Hg] 126 mm[Hg] [facility] Body temperature 36.131638 Kaylie 36.034945 [facility] Respiratory rate 18 /min 18 /min [facility] Oxygen 98 % 98 % [place] saturation in Medical Arterial blood Center by Pulse oximetry Heart rate 71 /min 71 /min [facility] Diastolic blood 62 mm[Hg] 62 mm[Hg] [facility] [place] Systolic blood 137 mm[Hg] 137 mm[Hg] [facility] Body temperature 36.544428 Kaylie 36.922306 [facility] Respiratory rate 17 /min 17 /min [facility] Oxygen 97 % 97 % [place] saturation in Medical Arterial blood Center by Pulse oximetry Heart rate 74 /min 74 /min [facility] Diastolic blood 75 mm[Hg] 75 mm[Hg] [facility] Systolic blood 133 mm[Hg] 133 mm[Hg] [facility] Body temperature 36.801263 Kaylie 36.064935 [facility] Respiratory rate 17 /min 17 /min [facility] Oxygen 97 % 97 % [place] saturation in Medical Arterial blood Center by Pulse oximetry Heart rate 75 /min 75 /min [facility] Diastolic blood 86 mm[Hg] 86 mm[Hg] [facility] Systolic blood 137 mm[Hg] 137 mm[Hg] [facility] Body temperature 36.413822 Kaylie 36.436515 [facility] Respiratory rate 18 /min 18 /min [facility] Oxygen 96 % 96 % [facility] saturation in Medical Arterial blood Center by Pulse oximetry Heart rate 80 /min 80 /min [facility] Diastolic blood 80 mm[Hg] 80 mm[Hg] [facility] Systolic blood 135 mm[Hg] 135 mm[Hg] [facility] [place] Body temperature 36.938633 Kaylie 36.158360 [facility] Respiratory rate 18 /min 18 /min [facility] Oxygen 98 % 98 % [facility] saturation in Medical Arterial blood Center by Pulse oximetry Heart rate 88 /min 88 /min [facility] Diastolic blood 70 mm[Hg] 70 mm[Hg] [facility] Systolic blood 126 mm[Hg] 126 mm[Hg] [facility] Body temperature 36.439557 Kaylie 36.031204 [facility] Respiratory rate 18 /min 18 /min [facility] Oxygen 98 % 98 % [facility] saturation in Medical Arterial blood Center by Pulse oximetry Heart rate 87 /min 87 /min [facility] Body height 182.948773 cm 182.822053 cm [facility] Diastolic blood 68 mm[Hg] 68 mm[Hg] [facility] Systolic blood 126 mm[Hg] 126 mm[Hg] [facility] Body mass index 32.8 kg/m2 32.8 kg/m2 [facility] (BMI) [Ratio] Medical Center Body weight 110.467449 kg 110.958137 kg [facility] [place] Body temperature 36.449588 Kaylie 36.835071 [facility] Respiratory rate 19 /min 19 /min [facility] Oxygen 97 % 97 % [facility] saturation in Medical Arterial blood Center by Pulse oximetry Heart rate 91 /min 91 /min [facility] Diastolic blood 65 mm[Hg] 65 mm[Hg] [facility] Systolic blood 100 mm[Hg] 100 mm[Hg] [facility] Body weight 85.567061 kg 85.303066 kg [facility] Body temperature 37.585092 Kaylie 37.837711 [facility] Respiratory rate 18 /min 18 /min [facility] Oxygen 98 % 98 % [place] saturation in Medical Arterial blood Center by Pulse oximetry Heart rate 87 /min 87 /min [facility] Body height 177.978746 cm 177.470071 cm [facility] Diastolic blood 78 mm[Hg] 78 mm[Hg] [facility] pressure Medical Center Systolic blood 145 mm[Hg] 145 mm[Hg] [facility] Body mass index 26.8 kg/m2 26.8 kg/m2 [facility] (BMI) [Ratio] Medical Center Body temperature 37.612021 Kaylie 37.392927 [facility] Respiratory rate 18 /min 18 /min [facility] Oxygen 97 % 97 % [place] saturation in Medical Arterial blood Center by Pulse oximetry Heart rate 87 /min 87 /min [facility] Diastolic blood 99 mm[Hg] 99 mm[Hg] [facility] Systolic blood 157 mm[Hg] 157 mm[Hg] [facility] Body temperature 37.306715 Kaylie 37.009806 [facility] Respiratory rate 20 /min 20 /min [facility] Oxygen 96 % 96 % [place] saturation in Medical Arterial blood Center by Pulse oximetry Heart rate 95 /min 95 /min [facility] Diastolic blood 101 mm[Hg] 101 mm[Hg] [facility] Systolic blood 161 mm[Hg] 161 mm[Hg] [facility] Body temperature 36.878195 Kaylie 36.815957 [facility] Respiratory rate 19 /min 19 /min [facility] Oxygen 97 % 97 % [place] saturation in Medical Arterial blood Center by Pulse oximetry Heart rate 91 /min 91 /min [facility] Diastolic blood 104 mm[Hg] 104 mm[Hg] [facility] Systolic blood 154 mm[Hg] 154 mm[Hg] [facility] Body temperature 36.152755 Kaylie 36.773167 [facility] Respiratory rate 18 /min 18 /min [facility] Oxygen 95 % 95 % [place] saturation in Medical Arterial blood Center by Pulse oximetry Heart rate 88 /min 88 /min [facility] Diastolic blood 100 mm[Hg] 100 mm[Hg] [facility] pressure Medical Center Systolic blood 150 mm[Hg] 150 mm[Hg] [facility] Body weight 100.140097 kg 100.159049 kg [facility] Body height 177.159798 cm 177.746336 cm [facility] Body mass index 31.6 kg/m2 31.6 kg/m2 [facility] (BMI) [Ratio] Medical Center Body temperature 36.536454 Kaylie 36.192332 [facility] Respiratory rate 16 /min 16 /min [facility] Oxygen 96 % 96 % [place] saturation in Medical Arterial blood Center by Pulse oximetry Heart rate 82 /min 82 /min [facility] Diastolic blood 78 mm[Hg] 78 mm[Hg] [facility] Systolic blood 132 mm[Hg] 132 mm[Hg] [facility] Body temperature 36.516330 Kaylie 36.035256 [facility] Respiratory rate 18 /min 18 /min [facility] Oxygen 98 % 98 % [place] saturation in Medical Arterial blood Center by Pulse oximetry Heart rate 83 /min 83 /min [facility] Diastolic blood 63 mm[Hg] 63 mm[Hg] [facility] Center Systolic blood 128 mm[Hg] 128 mm[Hg] [facility] Body temperature 36.280383 Kaylie 36.686810 [facility] Respiratory rate 17 /min 17 /min [facility] Oxygen 96 % 96 % [place] saturation in Medical Arterial blood Center by Pulse oximetry Heart rate 78 /min 78 /min [facility] Diastolic blood 77 mm[Hg] 77 mm[Hg] [facility] Systolic blood 132 mm[Hg] 132 mm[Hg] [facility] Body temperature 36.926645 Kaylie 36.642883 [facility] Respiratory rate 19 /min 19 /min [facility] Oxygen 98 % 98 % [place] saturation in Medical Arterial blood Center by Pulse oximetry Heart rate 86 /min 86 /min [facility] Diastolic blood 76 mm[Hg] 76 mm[Hg] [facility] pressure Medical Center Systolic blood 120 mm[Hg] 120 mm[Hg] [facility] Body temperature 37.276277 Kaylie 37.049285 [facility] Respiratory rate 18 /min 18 /min [facility] Oxygen 95 % 95 % [place] saturation in Medical Arterial blood Center by Pulse oximetry Heart rate 95 /min 95 /min [facility] Diastolic blood 103 mm[Hg] 103 mm[Hg] [facility] pressure [facility] Center Systolic blood 164 mm[Hg] 164 mm[Hg] [facility] [place] Body temperature 36.054898 Kaylie 36.011164 [facility] Respiratory rate 20 /min 20 /min [facility] Oxygen 94 % 94 % [place] saturation in Medical Arterial blood Center by Pulse oximetry Heart rate 90 /min 90 /min [facility] Diastolic blood 92 mm[Hg] 92 mm[Hg] [facility] Systolic blood 153 mm[Hg] 153 mm[Hg] [facility] [place] Body temperature 37.566281 Kaylie 37.373721 [facility] Respiratory rate 20 /min 20 /min [facility] Oxygen 88 % 88 % [place] saturation in Medical Arterial blood Center by Pulse oximetry Heart rate 88 /min 88 /min [facility] Diastolic blood 53 mm[Hg] 53 mm[Hg] [facility] pressure Medical Center Systolic blood 103 mm[Hg] 103 mm[Hg] [facility] [place] Body temperature 37.016608 Kaylie 37.839770 [facility] Respiratory rate 23 /min 23 /min [facility] Oxygen 89 % 89 % [place] saturation in Medical Arterial blood Center by Pulse oximetry Heart rate 88 /min 88 /min [facility] Diastolic blood 79 mm[Hg] 79 mm[Hg] [facility] pressure Medical Center Systolic blood 130 mm[Hg] 130 mm[Hg] [facility] Body weight 72.621096 kg 72.360110 kg [facility] Measured [facility] Body temperature 37.439905 Kaylie 37.334823 [facility] Respiratory rate 20 /min 20 /min [facility] Oxygen 89 % 89 % [place] saturation in Medical Arterial blood Center by Pulse oximetry Heart rate 86 /min 86 /min [facility] Body height 167.154286 cm 167.765695 cm [facility] Diastolic blood 40 mm[Hg] 40 mm[Hg] [facility] pressure [facility] Center Systolic blood 103 mm[Hg] 103 mm[Hg] [facility] Body mass index 25.8 kg/m2 25.8 kg/m2 [facility] (BMI) [Ratio] Medical Center Diastolic blood 89 mm[Hg] 89 mm[Hg] [facility] Systolic blood 134 mm[Hg] 134 mm[Hg] [facility] Body temperature 36.089186 Kaylie 36.832430 [facility] Respiratory rate 18 /min 18 /min [facility] Oxygen 98 % 98 % [place] saturation in Medical Arterial blood Center by Pulse oximetry Heart rate 76 /min 76 /min [facility] Body temperature 37.765392 Kaylie 37.740441 [facility] Respiratory rate 18 /min 18 /min [facility] Oxygen 96 % 96 % [place] saturation in Medical Arterial blood Center by Pulse oximetry Heart rate 86 /min 86 /min [facility] Diastolic blood 77 mm[Hg] 77 mm[Hg] [facility] Systolic blood 136 mm[Hg] 136 mm[Hg] [facility] Body temperature 37.809492 Kaylie 37.915724 [facility] Respiratory rate 20 /min 20 /min [facility] Oxygen 95 % 95 % [place] saturation in Medical Arterial blood Center by Pulse oximetry Heart rate 85 /min 85 /min [facility] Diastolic blood 81 mm[Hg] 81 mm[Hg] [facility] Systolic blood 141 mm[Hg] 141 mm[Hg] [facility] Body temperature 37.669208 Kaylie 37.129869 [facility] Respiratory rate 19 /min 19 /min [facility] Oxygen 97 % 97 % [place] saturation in Medical Arterial blood Center by Pulse oximetry Heart rate 77 /min 77 /min [facility] Diastolic blood 89 mm[Hg] 89 mm[Hg] [facility] pressure [facility] Center Systolic blood 133 mm[Hg] 133 mm[Hg] [facility] Oxygen 97 % 97 % [place] saturation in Medical Arterial blood Center by Pulse oximetry Heart rate 72 /min 72 /min [facility] Diastolic blood 92 mm[Hg] 92 mm[Hg] [facility] pressure [facility] Center Systolic blood 146 mm[Hg] 146 mm[Hg] [facility] Respiratory rate 22 /min 22 /min [facility] Oxygen 94 % 94 % [place] saturation in Medical Arterial blood Center by Pulse oximetry Heart rate 84 /min 84 /min [facility] Diastolic blood 80 mm[Hg] 80 mm[Hg] [facility] Systolic blood 132 mm[Hg] 132 mm[Hg] [facility] Respiratory rate 22 /min 22 /min [facility] Body temperature 37.701461 Kaylie 37.117126 [facility] Body temperature 37.524561 Kaylie 37.915850 [facility] Body temperature 36.478348 Kaylie 36.041446 [facility] Respiratory rate 18 /min 18 /min [facility] Oxygen 96 % 96 % [place] saturation in Medical Arterial blood Center by Pulse oximetry Heart rate 93 /min 93 /min [facility] Diastolic blood 80 mm[Hg] 80 mm[Hg] [facility] Systolic blood 129 mm[Hg] 129 mm[Hg] [facility] Body temperature 37.006443 Kaylie 37.573488 [facility] Respiratory rate 18 /min 18 /min [facility] Oxygen 95 % 95 % [place] saturation in Medical Arterial blood Center by Pulse oximetry Heart rate 84 /min 84 /min [facility] Diastolic blood 75 mm[Hg] 75 mm[Hg] [facility] pressure [facility] Center Systolic blood 125 mm[Hg] 125 mm[Hg] [facility] Body temperature 37.239358 Kaylie 37.249983 [facility] Respiratory rate 18 /min 18 /min [facility] Oxygen 95 % 95 % [place] saturation in Medical Arterial blood Center by Pulse oximetry Heart rate 88 /min 88 /min [facility] Diastolic blood 64 mm[Hg] 64 mm[Hg] [facility] pressure Medical Center Systolic blood 107 mm[Hg] 107 mm[Hg] [facility] Body temperature 36.117073 Kaylie 36.447087 [facility] Respiratory rate 17 /min 17 /min [facility] Oxygen 95 % 95 % [place] saturation in Medical Arterial blood Center by Pulse oximetry Heart rate 84 /min 84 /min [facility] Diastolic blood 74 mm[Hg] 74 mm[Hg] [facility] pressure Medical Center Systolic blood 108 mm[Hg] 108 mm[Hg] [facility] Body temperature 36.299423 Kaylie 36.842929 [facility] Respiratory rate 17 /min 17 /min [facility] Oxygen 98 % 98 % [place] saturation in Medical Arterial blood Center by Pulse oximetry Heart rate 78 /min 78 /min [facility] Diastolic blood 71 mm[Hg] 71 mm[Hg] [facility] pressure Medical Center Systolic blood 124 mm[Hg] 124 mm[Hg] [facility] Body temperature 37.200701 Kaylie 37.687818 [facility] Respiratory rate 18 /min 18 /min [facility] Oxygen 95 % 95 % [place] saturation in Medical Arterial blood Center by Pulse oximetry Heart rate 87 /min 87 /min [facility] Diastolic blood 74 mm[Hg] 74 mm[Hg] [facility] pressure Medical Center Systolic blood 127 mm[Hg] 127 mm[Hg] [facility] Body temperature 36.268368 Kaylie 36.044661 [facility] Respiratory rate 18 /min 18 /min [facility] Oxygen 97 % 97 % [place] saturation in Medical Arterial blood Center by Pulse oximetry Heart rate 78 /min 78 /min [facility] Diastolic blood 80 mm[Hg] 80 mm[Hg] [facility] pressure Medical Center Systolic blood 129 mm[Hg] 129 mm[Hg] [facility] Respiratory rate 18 /min 18 /min [facility] Heart rate 76 /min 76 /min [facility] Diastolic blood 80 mm[Hg] 80 mm[Hg] [facility] pressure Medical Center Systolic blood 131 mm[Hg] 131 mm[Hg] [facility] Body temperature 36.879889 Kaylie 36.785373 [facility] Respiratory rate 18 /min 18 /min [facility] Oxygen 97 % 97 % [place] saturation in Medical Arterial blood Center by Pulse oximetry Heart rate 80 /min 80 /min [facility] Diastolic blood 90 mm[Hg] 90 mm[Hg] [facility] pressure Medical Center Systolic blood 137 mm[Hg] 137 mm[Hg] [facility] Body temperature 36.911662 Kaylie 36.355284 [facility] Oxygen 97 % 97 % [place] saturation in Medical Arterial blood Center by Pulse oximetry Body temperature 36.841277 Kaylie 36.514959 [facility] Respiratory rate 18 /min 18 /min [facility] Oxygen 98 % 98 % [place] saturation in Medical Arterial blood Center by Pulse oximetry Heart rate 80 /min 80 /min [facility] Diastolic blood 78 mm[Hg] 78 mm[Hg] [facility] pressure Medical Center Systolic blood 128 mm[Hg] 128 mm[Hg] [facility] Body temperature 37.221924 Kaylie 37.655738 [facility] Respiratory rate 17 /min 17 /min [facility] Oxygen 97 % 97 % [place] saturation in Medical Arterial blood Center by Pulse oximetry Heart rate 78 /min 78 /min [facility] Diastolic blood 80 mm[Hg] 80 mm[Hg] [facility] pressure Medical Center Systolic blood 128 mm[Hg] 128 mm[Hg] [facility] Body temperature 36.919570 Kaylie 36.259574 [facility] Respiratory rate 18 /min 18 /min [facility] Oxygen 97 % 97 % [place] saturation in Medical Arterial blood Center by Pulse oximetry Heart rate 82 /min 82 /min [facility] Diastolic blood 78 mm[Hg] 78 mm[Hg] [facility] pressure Medical Center Systolic blood 137 mm[Hg] 137 mm[Hg] [facility] Body temperature 36.134500 Kaylie 36.316473 [facility] Respiratory rate 18 /min 18 /min [facility] Oxygen 97 % 97 % [place] saturation in Medical Arterial blood Center by Pulse oximetry Heart rate 80 /min 80 /min [facility] Diastolic blood 88 mm[Hg] 88 mm[Hg] [facility] pressure Medical Center Systolic blood 144 mm[Hg] 144 mm[Hg] [facility] Body temperature 37.625497 Kaylie 37.728214 [facility] Respiratory rate 19 /min 19 /min [facility] Oxygen 95 % 95 % [place] saturation in Medical Arterial blood Center by Pulse oximetry Heart rate 96 /min 96 /min [facility] Diastolic blood 90 mm[Hg] 90 mm[Hg] [facility] Systolic blood 150 mm[Hg] 150 mm[Hg] [facility] Body temperature 36.495100 Kaylie 36.299667 [facility] Respiratory rate 17 /min 17 /min [facility] Oxygen 95 % 95 % [place] saturation in Medical Arterial blood Center by Pulse oximetry Heart rate 89 /min 89 /min [facility] Diastolic blood 87 mm[Hg] 87 mm[Hg] [facility] pressure Medical Center Systolic blood 128 mm[Hg] 128 mm[Hg] [facility] Body temperature 36.124109 Kaylie 36.052330 [facility] Respiratory rate 17 /min 17 /min [facility] Oxygen 95 % 95 % [place] saturation in Medical Arterial blood Center by Pulse oximetry Heart rate 91 /min 91 /min [facility] Diastolic blood 81 mm[Hg] 81 mm[Hg] [facility] pressure Medical Center Systolic blood 127 mm[Hg] 127 mm[Hg] [facility] Body temperature 36.560268 Kaylie 36.058573 [facility] Respiratory rate 18 /min 18 /min [facility] Oxygen 90 % 90 % [place] saturation in Medical Arterial blood Center by Pulse oximetry Heart rate 99 /min 99 /min [facility] Diastolic blood 73 mm[Hg] 73 mm[Hg] [facility] [place] Systolic blood 125 mm[Hg] 125 mm[Hg] [facility] Body temperature 36.608152 Kaylie 36.410113 [facility] Respiratory rate 20 /min 20 /min [facility] Oxygen 95 % 95 % [place] saturation in Medical Arterial blood Center by Pulse oximetry Heart rate 88 /min 88 /min [facility] Diastolic blood 75 mm[Hg] 75 mm[Hg] [facility] pressure Medical [place] Systolic blood 135 mm[Hg] 135 mm[Hg] [facility] [place] Body temperature 37.713067 Kaylie 37.585829 [facility] Respiratory rate 18 /min 18 /min [facility] Oxygen 98 % 98 % [place] saturation in Medical Arterial blood Center by Pulse oximetry Heart rate 78 /min 78 /min [facility] Diastolic blood 68 mm[Hg] 68 mm[Hg] [facility] [place] Systolic blood 127 mm[Hg] 127 mm[Hg] [facility] [place] Systolic blood 133 mm[Hg] 133 mm[Hg] [facility] [place] Body temperature 36.141902 Kaylie 36.200074 [facility] Respiratory rate 18 /min 18 /min [facility] Oxygen 96 % 96 % [place] saturation in Medical Arterial blood Center by Pulse oximetry Heart rate 89 /min 89 /min [facility] Diastolic blood 78 mm[Hg] 78 mm[Hg] [facility] Body temperature 37.910716 Kaylie 37.943006 [facility] Respiratory rate 18 /min 18 /min [facility] Oxygen 100 % 100 % [place] saturation in Medical Arterial blood Center by Pulse oximetry Heart rate 84 /min 84 /min [facility] Diastolic blood 67 mm[Hg] 67 mm[Hg] [facility] Systolic blood 153 mm[Hg] 153 mm[Hg] [facility] [place] Body temperature 36.116289 Kaylie 36.337054 [facility] Respiratory rate 17 /min 17 /min [facility] Oxygen 96 % 96 % [place] saturation in Medical Arterial blood Center by Pulse oximetry Heart rate 78 /min 78 /min [facility] Diastolic blood 68 mm[Hg] 68 mm[Hg] [facility] pressure Medical Center Systolic blood 134 mm[Hg] 134 mm[Hg] [facility] Body temperature 36.261492 Kaylie 36.450546 [facility] Respiratory rate 18 /min 18 /min [facility] Oxygen 96 % 96 % [place] saturation in Medical Arterial blood Center by Pulse oximetry Heart rate 74 /min 74 /min [facility] Diastolic blood 73 mm[Hg] 73 mm[Hg] [facility] pressure Medical Center Systolic blood 122 mm[Hg] 122 mm[Hg] [facility] Respiratory rate 14 /min 14 /min [facility] Oxygen 97 % 97 % [place] saturation in Medical Arterial blood Center by Pulse oximetry Heart rate 82 /min 82 /min [facility] Diastolic blood 60 mm[Hg] 60 mm[Hg] [facility] Systolic blood 130 mm[Hg] 130 mm[Hg] [facility] [place] Body temperature 36.616743 Kaylie 36.038856 [facility] Respiratory rate 18 /min 18 /min [facility] Oxygen 99 % 99 % [place] saturation in Medical Arterial blood Center by Pulse oximetry Heart rate 88 /min 88 /min [facility] Diastolic blood 78 mm[Hg] 78 mm[Hg] [facility] Systolic blood 132 mm[Hg] 132 mm[Hg] [facility] [place] Body temperature 36.381867 Kaylie 36.623787 [facility] Respiratory rate 18 /min 18 /min [facility] Oxygen 98 % 98 % [place] saturation in Medical Arterial blood Center by Pulse oximetry Heart rate 80 /min 80 /min [facility] Diastolic blood 77 mm[Hg] 77 mm[Hg] [facility] Systolic blood 143 mm[Hg] 143 mm[Hg] [facility] [place] Body weight 82.549205 kg 82.736859 kg [facility] [place] Body temperature 36.177321 Kaylie 36.285468 [facility] Respiratory rate 18 /min 18 /min [facility] Oxygen 99 % 99 % [place] saturation in Medical Arterial blood Center by Pulse oximetry Heart rate 90 /min 90 /min [facility] Body height 177.827684 cm 177.869104 cm [facility] Diastolic blood 72 mm[Hg] 72 mm[Hg] [facility] pressure Medical Center Systolic blood 134 mm[Hg] 134 mm[Hg] [facility] Body mass index 25.9 kg/m2 25.9 kg/m2 [facility] (BMI) [Ratio] Medical Center Body temperature 36.852998 Kaylie 36.498608 [facility] Respiratory rate 17 /min 17 /min [facility] Oxygen 97 % 97 % [place] saturation in Medical Arterial blood Center by Pulse oximetry Heart rate 75 /min 75 /min [facility] Diastolic blood 80 mm[Hg] 80 mm[Hg] [facility] Systolic blood 143 mm[Hg] 143 mm[Hg] [facility] Body temperature 36.492901 Kaylie 36.803493 [facility] Respiratory rate 18 /min 18 /min [facility] Oxygen 97 % 97 % [place] saturation in Medical Arterial blood Center by Pulse oximetry Heart rate 80 /min 80 /min [facility] Diastolic blood 79 mm[Hg] 79 mm[Hg] [facility] pressure Medical Center Systolic blood 149 mm[Hg] 149 mm[Hg] [facility] Body temperature 37.471279 Kaylie 37.537938 [facility] Respiratory rate 16 /min 16 /min [facility] Oxygen 98 % 98 % [place] saturation in Medical Arterial blood Center by Pulse oximetry Heart rate 85 /min 85 /min [facility] Diastolic blood 77 mm[Hg] 77 mm[Hg] [facility] Systolic blood 154 mm[Hg] 154 mm[Hg] [facility] Body temperature 36.364530 Kaylie 36.822039 [facility] Respiratory rate 18 /min 18 /min [facility] Oxygen 97 % 97 % [place] saturation in Medical Arterial blood Center by Pulse oximetry Heart rate 77 /min 77 /min [facility] Diastolic blood 79 mm[Hg] 79 mm[Hg] [facility] Systolic blood 155 mm[Hg] 155 mm[Hg] [facility] Body weight 104.911305 kg 104.009026 kg [facility] Body temperature 36.857712 Kaylie 36.686523 Kay[facility] Respiratory rate 16 /min 16 /min [facility] Oxygen 95 % 95 % [place] saturation in Medical Arterial blood Center by Pulse oximetry Heart rate 75 /min 75 /min [facility] Body height 172.325938 cm 172.098257 cm [facility] Diastolic blood 84 mm[Hg] 84 mm[Hg] [facility] Systolic blood 165 mm[Hg] 165 mm[Hg] [facility] Body mass index 34.9 kg/m2 34.9 kg/m2 [facility] (BMI) [Ratio] Medical Center Body temperature 36.244699 Kaylie 36.495603 Kay[facility] Respiratory rate 18 /min 18 /min [facility] Oxygen 98 % 98 % [place] saturation in Medical Arterial blood Center by Pulse oximetry Heart rate 80 /min 80 /min [facility] Diastolic blood 84 mm[Hg] 84 mm[Hg] [facility] Systolic blood 134 mm[Hg] 134 mm[Hg] [facility] Body temperature 36.937172 Kaylie 36.478354 [facility] Respiratory rate 18 /min 18 /min [facility] Oxygen 95 % 95 % [place] saturation in Medical Arterial blood Center by Pulse oximetry Heart rate 81 /min 81 /min [facility] Diastolic blood 87 mm[Hg] 87 mm[Hg] [facility] Systolic blood 149 mm[Hg] 149 mm[Hg] [facility] Body temperature 36.645597 Kaylie 36.739794 Kay[facility] Respiratory rate 18 /min 18 /min [facility] Oxygen 95 % 95 % [place] saturation in Medical Arterial blood Center by Pulse oximetry Heart rate 84 /min 84 /min [facility] Diastolic blood 81 mm[Hg] 81 mm[Hg] [facility] Systolic blood 138 mm[Hg] 138 mm[Hg] [facility] Body temperature 36.825004 Kaylie 36.712329 Kay[facility] Respiratory rate 17 /min 17 /min [facility] Oxygen 93 % 93 % [place] saturation in Medical Arterial blood Center by Pulse oximetry Heart rate 85 /min 85 /min [facility] Diastolic blood 83 mm[Hg] 83 mm[Hg] [facility] [place] Systolic blood 138 mm[Hg] 138 mm[Hg] [facility] Body temperature 36.370536 Kaylie 36.703869 Kay[facility] Respiratory rate 19 /min 19 /min [facility] Heart rate 108 /min 108 /min [facility] Diastolic blood 79 mm[Hg] 79 mm[Hg] [facility] Systolic blood 141 mm[Hg] 141 mm[Hg] [facility] [place] Body temperature 36.388274 Kaylie 36.822658 [facility] Respiratory rate 18 /min 18 /min [facility] Heart rate 91 /min 91 /min [facility] Diastolic blood 70 mm[Hg] 70 mm[Hg] [facility] [place] Systolic blood 137 mm[Hg] 137 mm[Hg] [facility] Body temperature 36.769203 Kaylie 36.313230 [facility] Respiratory rate 18 /min 18 /min [facility] Heart rate 98 /min 98 /min [facility] Diastolic blood 78 mm[Hg] 78 mm[Hg] [facility] [place] Systolic blood 139 mm[Hg] 139 mm[Hg] [facility] Body temperature 36.783107 Kaylie 36.036846 [facility] Respiratory rate 18 /min 18 /min [facility] Heart rate 95 /min 95 /min [facility] Diastolic blood 81 mm[Hg] 81 mm[Hg] [facility] Systolic blood 140 mm[Hg] 140 mm[Hg] [facility] [place] Body temperature 36.697817 Kaylie 36.532323 [facility] Respiratory rate 18 /min 18 /min [facility] Oxygen 97 % 97 % [place] saturation in Medical Arterial blood Center by Pulse oximetry Heart rate 94 /min 94 /min [facility] Diastolic blood 71 mm[Hg] 71 mm[Hg] [facility] Systolic blood 120 mm[Hg] 120 mm[Hg] [facility] Oxygen 98 % 98 % [place] saturation in Medical Arterial blood Center by Pulse oximetry Diastolic blood 83 mm[Hg] 83 mm[Hg] [facility] Systolic blood 130 mm[Hg] 130 mm[Hg] [facility] Body temperature 36.434607 Kaylie 36.377317 Kay[facility] Respiratory rate 18 /min 18 /min [facility] Oxygen 95 % 95 % [place] saturation in Medical Arterial blood Center by Pulse oximetry Heart rate 85 /min 85 /min [facility] Body temperature 36.290428 Kaylie 36.734695 [facility] Respiratory rate 16 /min 16 /min [facility] Oxygen 95 % 95 % [place] saturation in Medical Arterial blood Center by Pulse oximetry Heart rate 90 /min 90 /min [facility] Diastolic blood 77 mm[Hg] 77 mm[Hg] [facility] Systolic blood 129 mm[Hg] 129 mm[Hg] [facility] Body weight 104.126330 kg 104.874127 kg [facility] Body temperature 36.145701 Kaylie 36.867118 [facility] Respiratory rate 17 /min 17 /min [facility] Oxygen 100 % 100 % [place] saturation in Medical Arterial blood Center by Pulse oximetry Heart rate 87 /min 87 /min [facility] Body height 177.481794 cm 177.344037 cm [facility] Diastolic blood 104 mm[Hg] 104 mm[Hg] [facility] Center Systolic blood 176 mm[Hg] 176 mm[Hg] [facility] Body mass index 33.0 kg/m2 33.0 kg/m2 [facility] (BMI) [Ratio] Medical Center Body temperature 36.559924 Kaylie 36.740639 [facility] Respiratory rate 17 /min 17 /min [facility] Oxygen 98 % 98 % [place] saturation in Medical Arterial blood Center by Pulse oximetry Heart rate 81 /min 81 /min [facility] Diastolic blood 81 mm[Hg] 81 mm[Hg] [facility] Systolic blood 124 mm[Hg] 124 mm[Hg] [facility] Body temperature 36.795195 Kaylie 36.661098 [facility] Respiratory rate 17 /min 17 /min [facility] Oxygen 97 % 97 % [place] saturation in Medical Arterial blood Center by Pulse oximetry Diastolic blood 75 mm[Hg] 75 mm[Hg] [facility] pressure [facility] Center Systolic blood 119 mm[Hg] 119 mm[Hg] [facility] Body temperature 36.582059 Kaylie 36.031586 [facility] Respiratory rate 18 /min 18 /min [facility] Heart rate 89 /min 89 /min [facility] Diastolic blood 72 mm[Hg] 72 mm[Hg] [facility] Systolic blood 114 mm[Hg] 114 mm[Hg] [facility] Oxygen 95 % 95 % [place] saturation in Medical Arterial blood Center by Pulse oximetry Body temperature 36.810307 Kaylie 36.618577 [facility] Respiratory rate 17 /min 17 /min [facility] Oxygen 91 % 91 % [place] saturation in Medical Arterial blood Center by Pulse oximetry Heart rate 78 /min 78 /min [facility] Body height 177.380517 cm 177.066456 cm [facility] Diastolic blood 79 mm[Hg] 79 mm[Hg] [facility] pressure [facility] Center Systolic blood 124 mm[Hg] 124 mm[Hg] [facility] Body mass index 30.0 kg/m2 30.0 kg/m2 [facility] (BMI) [Ratio] Medical Center Body weight 95.519530 kg 95.570409 kg [facility] Measured [facility] Body temperature 36.349781 Kaylie 36.449940 [facility] Respiratory rate 17 /min 17 /min [facility] Oxygen 98 % 98 % [place] saturation in Medical Arterial blood Center by Pulse oximetry Heart rate 89 /min 89 /min [facility] Diastolic blood 76 mm[Hg] 76 mm[Hg] [facility] pressure [facility] Center Systolic blood 125 mm[Hg] 125 mm[Hg] [facility] Body temperature 37.284142 Kaylie 37.991651 [facility] Respiratory rate 16 /min 16 /min [facility] Oxygen 88 % 88 % [place] saturation in Medical Arterial blood Center by Pulse oximetry Heart rate 93 /min 93 /min [facility] Diastolic blood 63 mm[Hg] 63 mm[Hg] [facility] pressure [facility] Center Systolic blood 127 mm[Hg] 127 mm[Hg] [facility] Body temperature 37.514009 Kaylie 37.053983 [facility] Respiratory rate 18 /min 18 /min [facility] Oxygen 94 % 94 % [place] saturation in Medical Arterial blood Center by Pulse oximetry Heart rate 91 /min 91 /min [facility] Diastolic blood 100 mm[Hg] 100 mm[Hg] [facility] Systolic blood 148 mm[Hg] 148 mm[Hg] [facility] Body weight 110.286289 kg 110.785544 kg [facility] Body temperature 36.543173 Kaylie 36.246400 [facility] Respiratory rate 18 /min 18 /min [facility] Oxygen 98 % 98 % [place] saturation in Medical Arterial blood Center by Pulse oximetry Heart rate 78 /min 78 /min [facility] Body height 182.343811 cm 182.337635 cm [facility] Diastolic blood 78 mm[Hg] 78 mm[Hg] [facility] pressure [facility] Center Systolic blood 138 mm[Hg] 138 mm[Hg] [facility] Body mass index 32.8 kg/m2 32.8 kg/m2 [facility] (BMI) [Ratio] Medical Center Body temperature 37.059915 Kaylie 37.638328 Kay[facility] Respiratory rate 19 /min 19 /min [facility] Oxygen 98 % 98 % [place] saturation in Medical Arterial blood Center by Pulse oximetry Heart rate 103 /min 103 /min [facility] Diastolic blood 92 mm[Hg] 92 mm[Hg] [facility] pressure Medical Center Systolic blood 153 mm[Hg] 153 mm[Hg] [facility] Body temperature 37.357408 Kaylie 37.449524 Kaylie [facility] Respiratory rate 17 /min 17 /min [facility] Oxygen 100 % 100 % [place] saturation in Medical Arterial blood Center by Pulse oximetry Heart rate 100 /min 100 /min [facility] Diastolic blood 71 mm[Hg] 71 mm[Hg] [facility] pressure Medical Center Systolic blood 127 mm[Hg] 127 mm[Hg] [facility] Body temperature 36.587376 Kaylie 36.625508 [facility] Respiratory rate 17 /min 17 /min [facility] Oxygen 95 % 95 % [place] saturation in Medical Arterial blood Center by Pulse oximetry Heart rate 80 /min 80 /min [facility] Diastolic blood 72 mm[Hg] 72 mm[Hg] [facility] pressure Medical Center Systolic blood 115 mm[Hg] 115 mm[Hg] [facility] Body temperature 36.320969 Kaylie 36.502479 [facility] Respiratory rate 17 /min 17 /min [facility] Oxygen 94 % 94 % [place] saturation in Medical Arterial blood Center by Pulse oximetry Heart rate 87 /min 87 /min [facility] Diastolic blood 68 mm[Hg] 68 mm[Hg] [facility] Systolic blood 110 mm[Hg] 110 mm[Hg] [facility] Body temperature 36.715384 Kaylie 36.655560 [facility] Respiratory rate 17 /min 17 /min [facility] Oxygen 98 % 98 % [place] saturation in Medical Arterial blood Center by Pulse oximetry Heart rate 87 /min 87 /min [facility] Diastolic blood 67 mm[Hg] 67 mm[Hg] [facility] Systolic blood 118 mm[Hg] 118 mm[Hg] [facility] Body temperature 36.042394 Kaylie 36.387156 [facility] Respiratory rate 17 /min 17 /min [facility] Oxygen 96 % 96 % [place] saturation in Medical Arterial blood Center by Pulse oximetry Heart rate 88 /min 88 /min [facility] Diastolic blood 54 mm[Hg] 54 mm[Hg] [facility] pressure [facility] Center Systolic blood 121 mm[Hg] 121 mm[Hg] [facility] Body temperature 36.564864 Kaylie 36.937716 [facility] Respiratory rate 18 /min 18 /min [facility] Oxygen 89 % 89 % [place] saturation in Medical Arterial blood Center by Pulse oximetry Heart rate 91 /min 91 /min [facility] Diastolic blood 49 mm[Hg] 49 mm[Hg] [facility] pressure Medical Center Systolic blood 93 mm[Hg] 93 mm[Hg] [facility] Body weight 104.737975 kg 104.818313 kg [facility]asured [facility] Body temperature 36.290318 Kaylie 36.930903 [facility] Respiratory rate 17 /min 17 /min [facility] Oxygen 93 % 93 % [place] saturation in Medical Arterial blood Center by Pulse oximetry Heart rate 85 /min 85 /min [facility] Diastolic blood 51 mm[Hg] 51 mm[Hg] [facility] Systolic blood 117 mm[Hg] 117 mm[Hg] [facility] [place] Body temperature 36.062110 Kaylie 36.053804 [facility] Respiratory rate 16 /min 16 /min [facility] Oxygen 100 % 100 % [place] saturation in Medical Arterial blood Center by Pulse oximetry Heart rate 80 /min 80 /min [facility] Diastolic blood 74 mm[Hg] 74 mm[Hg] [facility] pressure [facility] Center Systolic blood 130 mm[Hg] 130 mm[Hg] [facility] [place] Body temperature 36.536403 Kaylie 36.651007 [facility] Respiratory rate 20 /min 20 /min [facility] Oxygen 96 % 96 % [place] saturation in Medical Arterial blood Center by Pulse oximetry Heart rate 88 /min 88 /min [facility] Diastolic blood 78 mm[Hg] 78 mm[Hg] [facility] pressure Medical Center Systolic blood 145 mm[Hg] 145 mm[Hg] [facility] Body weight 113.881204 kg 113.175834 kg [facility] Body temperature 36.371582 Kaylie 36.781759 [facility] Respiratory rate 20 /min 20 /min [facility] Oxygen 97 % 97 % [place] saturation in Medical Arterial blood Center by Pulse oximetry Heart rate 89 /min 89 /min [facility] Body height 208.915323 cm 208.742378 cm [facility] Diastolic blood 88 mm[Hg] 88 mm[Hg] [facility] pressure Medical Center Systolic blood 150 mm[Hg] 150 mm[Hg] [facility] [place] Body mass index 26.1 kg/m2 26.1 kg/m2 [facility] (BMI) [Ratio] Medical Center Body temperature 36.076981 Kaylie 36.842277 Kay[facility] Respiratory rate 20 /min 20 /min [facility] Heart rate 84 /min 84 /min [facility] Diastolic blood 87 mm[Hg] 87 mm[Hg] [facility] [place] Systolic blood 137 mm[Hg] 137 mm[Hg] [facility] Body temperature 36.854495 Kaylie 36.665792 [facility] Respiratory rate 20 /min 20 /min [facility] Heart rate 80 /min 80 /min [facility] Diastolic blood 80 mm[Hg] 80 mm[Hg] [facility] [place] Systolic blood 156 mm[Hg] 156 mm[Hg] [facility] Body temperature 37.947657 Kaylie 37.513606 [facility] Respiratory rate 20 /min 20 /min [facility] Heart rate 90 /min 90 /min [facility] Diastolic blood 80 mm[Hg] 80 mm[Hg] [facility] [place] Systolic blood 149 mm[Hg] 149 mm[Hg] [facility] [place] Body temperature 36.902572 Kaylie 36.479194 [facility] Respiratory rate 21 /min 21 /min [facility] Heart rate 97 /min 97 /min [facility] Diastolic blood 69 mm[Hg] 69 mm[Hg] [facility] Systolic blood 136 mm[Hg] 136 mm[Hg] [facility] [place] Body temperature 38.561396 Kaylie 38.204354 [facility] Respiratory rate 20 /min 20 /min [facility] Heart rate 97 /min 97 /min [facility] Diastolic blood 113 mm[Hg] 113 mm[Hg] [facility] Systolic blood 188 mm[Hg] 188 mm[Hg] [facility] Body temperature 38.959812 Kaylie 38.303381 [facility] Respiratory rate 22 /min 22 /min [facility] Heart rate 102 /min 102 /min [facility] Diastolic blood 99 mm[Hg] 99 mm[Hg] [facility] Systolic blood 172 mm[Hg] 172 mm[Hg] [facility] Body temperature 38.148307 Kaylie 38.167720 Kay[facility] Respiratory rate 20 /min 20 /min [facility] Heart rate 102 /min 102 /min [facility] Diastolic blood 91 mm[Hg] 91 mm[Hg] [facility] Systolic blood 174 mm[Hg] 174 mm[Hg] [facility] Body weight 161.065480 kg 161.856622 kg [facility] Body height 177.064309 cm 177.410141 cm [facility] Body mass index 50.96 kg/m2 50.96 kg/m2 [facility] (BMI) [Ratio] Medical Center Body weight 116.485306 kg 116.802503 kg [facility] Center Body height 177.931529 cm 177.658286 cm [facility] Body mass index 36.73 kg/m2 36.73 kg/m2 [facility] (BMI) [Ratio] Medical Center Body weight 116.820184 kg 116.274421 kg [facility] Center Body height 177.645394 cm 177.729291 cm [facility] Body mass index 36.69 kg/m2 36.69 kg/m2 [facility] (BMI) [Ratio] Medical Center Body temperature 37.001112 Kaylie 37.141421 Kay[facility] Respiratory rate 20 /min 20 /min [facility] Heart rate 94 /min 94 /min [facility] Diastolic blood 95 mm[Hg] 95 mm[Hg] [facility] Systolic blood 151 mm[Hg] 151 mm[Hg] [facility] [place] Oxygen 96 % 96 % [facility] saturation in Medical Arterial blood Center by Pulse oximetry Body temperature 36.314644 Kaylie 36.677990 [facility] Respiratory rate 18 /min 18 /min [facility] Heart rate 93 /min 93 /min [facility] Diastolic blood 58 mm[Hg] 58 mm[Hg] [facility] pressure [facility] Center Systolic blood 139 mm[Hg] 139 mm[Hg] [facility] Oxygen 96 % 96 % [place] saturation in Medical Arterial blood Center by Pulse oximetry Body temperature 36.151510 Kaylie 36.658959 [facility] Respiratory rate 18 /min 18 /min [facility] Heart rate 88 /min 88 /min [facility] Diastolic blood 70 mm[Hg] 70 mm[Hg] [place] [facility] pressure Medical Center Systolic blood 120 mm[Hg] 120 mm[Hg] [facility] pressure Medical Center Oxygen 94 % 94 % [place] saturation in Medical Arterial blood Center by Pulse oximetry Oxygen 99 % 99 % [place] saturation in Medical Arterial blood Center by Pulse oximetry Body weight 95.882182 kg 95.658025 kg [facility] Oxygen 100 % 100 % [place] saturation in Medical Arterial blood Center by Pulse oximetry Body height 172.908638 cm 172.497917 cm [facility] Body mass index 31.9 kg/m2 31.9 kg/m2 [facility] (BMI) [Ratio] Medical Center Body weight 80.532440 kg 80.542463 kg [facility] [place] [facility] Body temperature 36.546753 Kaylie 36.639253 Kay[facility] Respiratory rate 18 /min 18 /min [facility] Oxygen 98 % 98 % [place] saturation in Medical Arterial blood Center by Pulse oximetry Heart rate 94 /min 94 /min [facility] Body height 177.898386 cm 177.860592 cm [facility] Diastolic blood 88 mm[Hg] 88 mm[Hg] [facility] [place] pressure [facility] Center Systolic blood 125 mm[Hg] 125 mm[Hg] [facility] Body mass index 25.3 kg/m2 25.3 kg/m2 [facility] [place] (BMI) [Ratio] [facility] Body weight 80.625278 kg 80.384885 kg [facility] [place] [facility] Body temperature 36.995556 Kaylie 36.674067 [facility] Respiratory rate 18 /min 18 /min [facility] Oxygen 98 % 98 % [place] saturation in Medical Arterial blood Center by Pulse oximetry Heart rate 99 /min 99 /min [facility] Body height 177.552764 cm 177.616558 cm [facility] Diastolic blood 68 mm[Hg] 68 mm[Hg] [facility] pressure Medical Center Systolic blood 112 mm[Hg] 112 mm[Hg] [facility] Body mass index 25.3 kg/m2 25.3 kg/m2 [facility] (BMI) [Ratio] Medical Center Body temperature 36.476442 Kaylie 36.123026 Kaylei [facility] Respiratory rate 17 /min 17 /min [facility] Oxygen 98 % 98 % [place] saturation in Medical Arterial blood Center by Pulse oximetry Heart rate 75 /min 75 /min [facility] Diastolic blood 68 mm[Hg] 68 mm[Hg] [facility] pressure Medical Center Systolic blood 132 mm[Hg] 132 mm[Hg] [facility] Body temperature 36.248704 Kaylie 36.906632 Kay[facility] Respiratory rate 17 /min 17 /min [facility] Oxygen 98 % 98 % [place] saturation in Medical Arterial blood Center by Pulse oximetry Heart rate 77 /min 77 /min [facility] Diastolic blood 71 mm[Hg] 71 mm[Hg] [facility] pressure [facility] Center Systolic blood 138 mm[Hg] 138 mm[Hg] [facility] Body temperature 36.355698 Kaylie 36.166564 Kay[facility] Respiratory rate 17 /min 17 /min [facility] Oxygen 97 % 97 % [place] saturation in Medical Arterial blood Center by Pulse oximetry Heart rate 81 /min 81 /min [facility] Diastolic blood 68 mm[Hg] 68 mm[Hg] [facility] pressure [facility] Center Systolic blood 149 mm[Hg] 149 mm[Hg] [facility] Body temperature 36.464210 Kaylie 36.076471 Kaylie [facility] Respiratory rate 17 /min 17 /min [facility] Oxygen 98 % 98 % [place] saturation in Medical Arterial blood Center by Pulse oximetry Heart rate 98 /min 98 /min [facility] Diastolic blood 89 mm[Hg] 89 mm[Hg] [facility] Systolic blood 154 mm[Hg] 154 mm[Hg] [facility] Body temperature 37.527955 Kaylie 37.669428 Kaylie [facility] Respiratory rate 18 /min 18 /min [facility] Oxygen 95 % 95 % [place] saturation in Medical Arterial blood Center by Pulse oximetry Heart rate 101 /min 101 /min [facility] Diastolic blood 90 mm[Hg] 90 mm[Hg] [facility] Systolic blood 172 mm[Hg] 172 mm[Hg] [facility] Body temperature 37.264620 Kaylie 37.647909 Kaylie [facility] Respiratory rate 18 /min 18 /min [facility] Oxygen 96 % 96 % [place] saturation in Medical Arterial blood Center by Pulse oximetry Heart rate 100 /min 100 /min [facility] Diastolic blood 70 mm[Hg] 70 mm[Hg] [facility] Systolic blood 123 mm[Hg] 123 mm[Hg] [facility] Body temperature 37.963344 Kaylie 37.301595 Kaylie [facility] Respiratory rate 18 /min 18 /min [facility] Oxygen 97 % 97 % [place] saturation in Medical Arterial blood Center by Pulse oximetry Heart rate 88 /min 88 /min [facility] Diastolic blood 66 mm[Hg] 66 mm[Hg] [facility] Systolic blood 121 mm[Hg] 121 mm[Hg] [facility] Body temperature 37.682574 Kaylie 37.239204 Kaylie [facility] Respiratory rate 18 /min 18 /min [facility] Oxygen 96 % 96 % [place] saturation in Medical Arterial blood Center by Pulse oximetry Heart rate 96 /min 96 /min [facility] Diastolic blood 53 mm[Hg] 53 mm[Hg] [facility] Systolic blood 113 mm[Hg] 113 mm[Hg] [facility] Body weight 99.026043 kg 99.376497 kg [facility] [place] Body height 177.504473 cm 177.033723 cm [facility] Body mass index 31.5 kg/m2 31.5 kg/m2 [facility] (BMI) [Ratio] Medical Center Body temperature 36.893934 Kaylie 36.413850 Kaylie [facility] Respiratory rate 18 /min 18 /min [facility] Oxygen 98 % 98 % [place] saturation in Medical Arterial blood Center by Pulse oximetry Heart rate 88 /min 88 /min [facility] Diastolic blood 86 mm[Hg] 86 mm[Hg] [facility] pressure [facility] Center Systolic blood 152 mm[Hg] 152 mm[Hg] [facility] Respiratory rate 18 /min 18 /min [facility] Oxygen 100 % 100 % [place] saturation in Medical Arterial blood Center by Pulse oximetry Heart rate 89 /min 89 /min [facility] Diastolic blood 90 mm[Hg] 90 mm[Hg] [facility] pressure [facility] Center Systolic blood 146 mm[Hg] 146 mm[Hg] [facility] Body weight 110.530933 kg 110.333751 kg [facility] Body temperature 37.224326 Kaylie 37.394350 Kaylie [facility] Respiratory rate 18 /min 18 /min [facility] Oxygen 98 % 98 % [place] saturation in Medical Arterial blood Center by Pulse oximetry Heart rate 78 /min 78 /min [facility] Body height 177.701957 cm 177.154177 cm [facility] Diastolic blood 78 mm[Hg] 78 mm[Hg] [facility] pressure [facility] Center Systolic blood 127 mm[Hg] 127 mm[Hg] [facility] Body mass index 34.7 kg/m2 34.7 kg/m2 [facility] (BMI) [Ratio] Medical Center Body temperature 36.975698 Kaylie 36.087093 Kaylie [facility] Respiratory rate 19 /min 19 /min [facility] Oxygen 97 % 97 % [place] saturation in Medical Arterial blood Center by Pulse oximetry Heart rate 78 /min 78 /min [facility] Diastolic blood 77 mm[Hg] 77 mm[Hg] [facility] Systolic blood 142 mm[Hg] 142 mm[Hg] [facility] Body temperature 36.029168 Kaylie 36.532291 Kaylie [facility] Respiratory rate 18 /min 18 /min [facility] Oxygen 96 % 96 % [place] saturation in Medical Arterial blood Center by Pulse oximetry Heart rate 102 /min 102 /min [facility] Diastolic blood 92 mm[Hg] 92 mm[Hg] [facility] pressure [facility] Center Systolic blood 149 mm[Hg] 149 mm[Hg] [facility] Body temperature 37.264763 Kaylie 37.098763 Kaylie [facility] Respiratory rate 18 /min 18 /min [facility] Oxygen 97 % 97 % [place] saturation in Medical Arterial blood Center by Pulse oximetry Heart rate 88 /min 88 /min [facility] Diastolic blood 78 mm[Hg] 78 mm[Hg] [facility] Systolic blood 132 mm[Hg] 132 mm[Hg] [facility] Body temperature 37.746573 Kaylie 37.745100 Kay[facility] Respiratory rate 19 /min 19 /min [facility] Oxygen 85 % 85 % [place] saturation in Medical Arterial blood Center by Pulse oximetry Heart rate 106 /min 106 /min [facility] Diastolic blood 70 mm[Hg] 70 mm[Hg] [facility] pressure [facility] Center Systolic blood 100 mm[Hg] 100 mm[Hg] [facility] Body temperature 36.270241 Kaylie 36.934891 Kay[facility] Respiratory rate 17 /min 17 /min [facility] Oxygen 98 % 98 % [place] saturation in Medical Arterial blood Center by Pulse oximetry Heart rate 72 /min 72 /min [facility] Diastolic blood 72 mm[Hg] 72 mm[Hg] [facility] Systolic blood 138 mm[Hg] 138 mm[Hg] [facility] Body temperature 36.503501 Kaylie 36.086000 Kay[facility] Respiratory rate 19 /min 19 /min [facility] Oxygen 99 % 99 % [place] saturation in Medical Arterial blood Center by Pulse oximetry Heart rate 76 /min 76 /min [facility] Diastolic blood 67 mm[Hg] 67 mm[Hg] [facility] pressure [facility] Center Systolic blood 141 mm[Hg] 141 mm[Hg] [facility] Body temperature 36.240028 Kaylie 36.717534 Kay[facility] Respiratory rate 18 /min 18 /min [facility] Oxygen 98 % 98 % [place] saturation in Medical Arterial blood Center by Pulse oximetry Heart rate 87 /min 87 /min [facility] Diastolic blood 78 mm[Hg] 78 mm[Hg] [facility] pressure [facility] Center Systolic blood 132 mm[Hg] 132 mm[Hg] [facility] Body weight 108.057754 kg 108.701957 kg [facility] Body temperature 36.561010 Kaylie 36.909182 [facility] Respiratory rate 17 /min 17 /min [facility] Oxygen 100 % 100 % [place] saturation in Medical Arterial blood Center by Pulse oximetry Heart rate 90 /min 90 /min [facility] Diastolic blood 86 mm[Hg] 86 mm[Hg] [facility] Systolic blood 136 mm[Hg] 136 mm[Hg] [facility] Body temperature 36.029328 Kaylie 36.193346 Kay[facility] Respiratory rate 17 /min 17 /min [facility] Oxygen 99 % 99 % [place] saturation in Medical Arterial blood Center by Pulse oximetry Heart rate 78 /min 78 /min [facility] Diastolic blood 82 mm[Hg] 82 mm[Hg] [facility] Systolic blood 142 mm[Hg] 142 mm[Hg] [facility] Body temperature 36.861738 Kaylie 36.387063 Kay[facility] Respiratory rate 18 /min 18 /min [facility] Oxygen 98 % 98 % [place] saturation in Medical Arterial blood Center by Pulse oximetry Heart rate 78 /min 78 /min [facility] Body height 177.998230 cm 177.575225 cm [facility] Diastolic blood 99 mm[Hg] 99 mm[Hg] [facility] Systolic blood 153 mm[Hg] 153 mm[Hg] [facility] Body mass index 27.5 kg/m2 27.5 kg/m2 [facility] (BMI) [Ratio] Medical Center Body weight 87.180122 kg 87.986502 kg [facility] Body weight 105.353646 kg 105.818986 kg [facility] Body temperature 37.410814 Kaylie 37.009362 Kay[facility] Respiratory rate 18 /min 18 /min [facility] Oxygen 96 % 96 % [place] saturation in Medical Arterial blood Center by Pulse oximetry Heart rate 109 /min 109 /min [facility] Body height 177.205780 cm 177.409004 cm [facility] Diastolic blood 105 mm[Hg] 105 mm[Hg] [facility] [facility] pressure Medical Center Systolic blood 155 mm[Hg] 155 mm[Hg] [facility] Body mass index 33.2 kg/m2 33.2 kg/m2 [facility] (BMI) [Ratio] Medical Center Body temperature 37.539448 Kaylie 37.014232 Kaylie [facility] Respiratory rate 18 /min 18 /min [facility] Oxygen 95 % 95 % [place] saturation in Medical Arterial blood Center by Pulse oximetry Heart rate 100 /min 100 /min [facility] Diastolic blood 55 mm[Hg] 55 mm[Hg] [facility] Systolic blood 108 mm[Hg] 108 mm[Hg] [facility] Body temperature 37.945800 Kaylie 37.928508 [facility] Respiratory rate 18 /min 18 /min [facility] Oxygen 95 % 95 % [place] saturation in Medical Arterial blood Center by Pulse oximetry Heart rate 102 /min 102 /min [facility] Diastolic blood 54 mm[Hg] 54 mm[Hg] [facility] Systolic blood 181 mm[Hg] 181 mm[Hg] [facility] Body weight 102.386759 kg 102.385740 kg [facility] Measured Medical Center Body temperature 36.663005 Kaylie 36.173858 [facility] Respiratory rate 18 /min 18 /min [facility] Oxygen 93 % 93 % [place] saturation in Medical Arterial blood Center by Pulse oximetry Heart rate 94 /min 94 /min [facility] Body height 180.644524 cm 180.517665 cm [facility] Diastolic blood 93 mm[Hg] 93 mm[Hg] [facility] Systolic blood 141 mm[Hg] 141 mm[Hg] [facility] Body mass index 31.3 kg/m2 31.3 kg/m2 [facility] (BMI) [Ratio] Medical Center Body temperature 36.416191 Kaylie 36.139998 [facility] Respiratory rate 18 /min 18 /min [facility] Center Heart rate 96 /min 96 /min [facility] Diastolic blood 72 mm[Hg] 72 mm[Hg] [facility] Systolic blood 122 mm[Hg] 122 mm[Hg] [facility] Body weight 104.432556 kg 104.957166 kg [facility] Body height 177.414657 cm 177.656949 cm [facility] Body mass index 33.0 kg/m2 33.0 kg/m2 [facility] (BMI) [Ratio] Medical Center Body weight 104.697744 kg 104.853524 kg [facility] Body temperature 36.694795 Kaylie 36.152978 [facility] Respiratory rate 18 /min 18 /min [facility] Oxygen 94 % 94 % [facility] saturation in Medical Arterial blood Center by Pulse oximetry Heart rate 81 /min 81 /min [facility] Body height 177.944971 cm 177.273097 cm [facility] Center Diastolic blood 73 mm[Hg] 73 mm[Hg] [facility] pressure Medical Center Systolic blood 148 mm[Hg] 148 mm[Hg] [facility] Body mass index 33.0 kg/m2 33.0 kg/m2 [facility] (BMI) [Ratio] Medical Center Body temperature 36.367248 Kaylie 36.110975 [facility] Respiratory rate 17 /min 17 /min [facility] Oxygen 96 % 96 % [facility] saturation in Medical Arterial blood Center by Pulse oximetry Heart rate 81 /min 81 /min [facility] Diastolic blood 73 mm[Hg] 73 mm[Hg] [facility] pressure Medical Center Systolic blood 141 mm[Hg] 141 mm[Hg] [facility] Body temperature 37.382202 Kaylie 37.196632 [facility] Respiratory rate 19 /min 19 /min [facility] Oxygen 96 % 96 % [place] saturation in Medical Arterial blood Center by Pulse oximetry Heart rate 85 /min 85 /min [facility] Diastolic blood 55 mm[Hg] 55 mm[Hg] [facility] pressure Medical Center Systolic blood 124 mm[Hg] 124 mm[Hg] [facility] Body temperature 37.252952 Kaylie 37.734035 [facility] Respiratory rate 18 /min 18 /min [facility] Oxygen 96 % 96 % [place] saturation in Medical Arterial blood Center by Pulse oximetry Heart rate 97 /min 97 /min [facility] Diastolic blood 81 mm[Hg] 81 mm[Hg] [facility] pressure Medical Center Systolic blood 143 mm[Hg] 143 mm[Hg] [facility] Body weight 105.835532 kg 105.961903 kg [facility] Body temperature 36.494330 Kayile 36.547824 [facility] Respiratory rate 17 /min 17 /min [facility] Oxygen 95 % 95 % [place] saturation in Medical Arterial blood Center by Pulse oximetry Heart rate 92 /min 92 /min [facility] Body height 177.266149 cm 177.031819 cm [facility] Diastolic blood 77 mm[Hg] 77 mm[Hg] [facility] pressure Medical Center Systolic blood 141 mm[Hg] 141 mm[Hg] [facility] Body mass index 33.4 kg/m2 33.4 kg/m2 [facility] (BMI) [Ratio] Medical Center Body temperature 37.447587 Kaylie 37.879271 [facility] Respiratory rate 18 /min 18 /min [facility] Oxygen 96 % 96 % [place] saturation in Medical Arterial blood Center by Pulse oximetry Heart rate 95 /min 95 /min [facility] Diastolic blood 78 mm[Hg] 78 mm[Hg] [facility] pressure Medical Center Systolic blood 139 mm[Hg] 139 mm[Hg] [facility] Body temperature 37.172489 Kaylie 37.291467 Kay[facility] Respiratory rate 18 /min 18 /min [facility] Oxygen 95 % 95 % [place] saturation in Medical Arterial blood Center by Pulse oximetry Heart rate 96 /min 96 /min [facility] Diastolic blood 81 mm[Hg] 81 mm[Hg] [facility] pressure Medical Center Systolic blood 131 mm[Hg] 131 mm[Hg] [facility] Body temperature 36.255826 Kaylie 36.404072 Kay[facility] Respiratory rate 17 /min 17 /min [facility] Oxygen 98 % 98 % [place] saturation in Medical Arterial blood Center by Pulse oximetry Heart rate 87 /min 87 /min [facility] Diastolic blood 82 mm[Hg] 82 mm[Hg] [facility] Systolic blood 149 mm[Hg] 149 mm[Hg] [facility] [place] Body temperature 36.448715 Kaylie 36.871404 [facility] Respiratory rate 18 /min 18 /min [facility] Oxygen 97 % 97 % [place] saturation in Medical Arterial blood Center by Pulse oximetry Heart rate 83 /min 83 /min [facility] Diastolic blood 71 mm[Hg] 71 mm[Hg] [facility] [place] Systolic blood 131 mm[Hg] 131 mm[Hg] [facility] Body temperature 36.805133 Kaylie 36.423293 Kay[facility] Respiratory rate 19 /min 19 /min [facility] Oxygen 95 % 95 % [place] saturation in Medical Arterial blood Center by Pulse oximetry Heart rate 92 /min 92 /min [facility] Diastolic blood 63 mm[Hg] 63 mm[Hg] [facility] Systolic blood 115 mm[Hg] 115 mm[Hg] [facility] Body temperature 36.844180 Kaylie 36.469536 Kay[facility] Respiratory rate 18 /min 18 /min [facility] Oxygen 98 % 98 % [place] saturation in Medical Arterial blood Center by Pulse oximetry Heart rate 78 /min 78 /min [facility] Diastolic blood 79 mm[Hg] 79 mm[Hg] [facility] Systolic blood 128 mm[Hg] 128 mm[Hg] [facility] [place] Daily Weight 104.55 kg 104.55 kg [facility] [place] Body 73.2 kg 73.2 kg [facility] Center Body mass index 33 kg/m2 33 kg/m2 [place] (BMI) [Ratio] [facility] Body height 178 cm 178 cm [place] [facility] Oxygen therapy [place] [Minimum Data Health - Set] [facility] Oxygen 94 % 94-100 % Normal (applies to 94 % [place] saturation in non-numeric Health - Blood Postductal results) [place] [facility] Center Mean blood 107 mm[Hg] 107 mm[Hg] [place] pressure by Health - Noninvasive [facility] Diastolic blood 88 mm[Hg] 60-90 Normal (applies to 88 mm[Hg] [place] pressure mmHg non-numeric Health - results) [facility] Systolic blood 145 mm[Hg] 90-130 Above high normal 145 mm[Hg] [place] pressure mmHg [facility] Respiratory rate 18 br/min 14-20 Normal (applies to 18 br/min [place] br/min non-numeric Health - results) [facility] Heart rate 100 bpm 60-100 Normal (applies to 100 bpm [place] e bpm non-numeric Health - results) [facility] Oral temperature 98.3 [degF] 96.4-99.1 Normal (applies to 98.3 [degF ] [place] DegF non-numeric Health - results) [facility] Oxygen 93 % 94-100 % Below low normal 93 % [place] saturation in Health - Blood Postductal [place] [facility] Oral temperature 97.5 [degF] 96.4-99.1 Normal (applies to 97.5 [degF ] [place] DegF non-numeric Health - results) [facility] Heart rate 66 bpm 60-100 Normal (applies to 66 bpm [place] e bpm non-numeric Health - results) [facility] Respiratory rate 18 br/min 14-20 Normal (applies to 18 br/min [place] br/min non-numeric Health - results) [facility] Diastolic blood 84 mm[Hg] 60-90 Normal (applies to 84 mm[Hg] [place] pressure mmHg non-numeric Health - results) [facility] Systolic blood 151 mm[Hg] 90-130 Above high normal 151 mm[Hg] [place] pressure mmHg [facility] Mean blood 106 mm[Hg] 106 mm[Hg] [place] pressure by [facility] Oxygen therapy [place] [Minimum Data Health - Set] [facility] Oxygen therapy [place] [Minimum Data Health - Set] [facility] Respiratory rate 18 br/min 14-20 Normal (applies to 18 br/min [place] br/min non-numeric Health - results) [facility] Diastolic blood 91 mm[Hg] 60-90 Above high normal 91 mm[Hg] [place] pressure mmHg [facility] Systolic blood 168 mm[Hg] 90-130 Above high normal 168 mm[Hg] [place] pressure mmHg [facility] Heart rate 78 bpm 60-100 Normal (applies to 78 bpm [place] bpm non-numeric Health - results) [facility] Oxygen 93 % 94-100 % Below low normal 93 % [place] saturation in Health - Blood Postductal [place] [facility] Oral temperature 98.6 [degF] 96.4-99.1 Normal (applies to 98.6 [degF ] [place] DegF non-numeric Health - results) [facility] Mean blood 117 mm[Hg] 117 mm[Hg] [place] pressure by [facility] Blood pressure [place] measurement site [facility] Blood pressure [place] measurement site [facility] Vital Signs Nurse Nurse [place] Reported To [facility] Blood pressure [place] measurement site [facility] Oxygen Therapy [place] Activity [facility] Inhaled oxygen 2 L/min 2 L/min [place] flow rate [facility] Body mass index 33 kg/m2 33 kg/m2 [place] (BMI) [Ratio] [facility] Body mass index 33 kg/m2 33 kg/m2 [place] (BMI) [Ratio] [facility] Body height 178 cm 178 cm [place] [facility] Body weight 104.55 kg 104.55 kg [place] Measured [facility] Body temperature 36.149564 Kaylie 36.967819 Kaylie [facility] Respiratory rate 18 /min 18 /min [facility] Oxygen 98 % 98 % [facility] saturation in Medical Arterial blood Center by Pulse oximetry Heart rate 88 /min 88 /min [facility] Diastolic blood 90 mm[Hg] 90 mm[Hg] [facility] pressure Medical Center Systolic blood 132 mm[Hg] 132 mm[Hg] [facility] Body weight 81.910187 kg 81.299815 kg [facility] Measured Medical [place] Body temperature 37.663548 Kaylie 37.973153 Kay[facility] Respiratory rate 18 /min 18 /min [facility] Oxygen 99 % 99 % [place] saturation in Medical Arterial blood Center by Pulse oximetry Heart rate 101 /min 101 /min [facility] Body height 172.119684 cm 172.884125 cm [facility] Diastolic blood 88 mm[Hg] 88 mm[Hg] [facility] pressure Medical Center Systolic blood 130 mm[Hg] 130 mm[Hg] [facility] Body mass index 27.3 kg/m2 27.3 kg/m2 [facility] (BMI) [Ratio] Medical Center Oxygen 96 % 96 % [place] saturation in Medical Arterial blood Center by Pulse oximetry Heart rate 91 /min 91 /min [facility] Diastolic blood 67 mm[Hg] 67 mm[Hg] [facility] Systolic blood 109 mm[Hg] 109 mm[Hg] [facility] Body temperature 36.614273 Kaylie 36.109838 Kay[facility] Respiratory rate 18 /min 18 /min [facility] Body temperature 36.197959 Kaylie 36.669150 Kay[facility] Respiratory rate 18 /min 18 /min [facility] Oxygen 97 % 97 % [place] saturation in Medical Arterial blood Center by Pulse oximetry Heart rate 94 /min 94 /min [facility] Diastolic blood 63 mm[Hg] 63 mm[Hg] [facility] pressure Medical Center Systolic blood 115 mm[Hg] 115 mm[Hg] [facility] Body temperature 36.563744 Kaylie 36.987424 Kaylie [facility] Respiratory rate 18 /min 18 /min [facility] Oxygen 98 % 98 % [place] saturation in Medical Arterial blood Center by Pulse oximetry Heart rate 92 /min 92 /min [facility] Diastolic blood 62 mm[Hg] 62 mm[Hg] [facility] Systolic blood 108 mm[Hg] 108 mm[Hg] [facility] Body temperature 36.662674 Kaylie 36.617720 Kaylie [facility] Respiratory rate 18 /min 18 /min [facility] Oxygen 97 % 97 % [place] saturation in Medical Arterial blood Center by Pulse oximetry Heart rate 77 /min 77 /min [facility] Diastolic blood 76 mm[Hg] 76 mm[Hg] [facility] Systolic blood 110 mm[Hg] 110 mm[Hg] [facility] [place] Body temperature 37.020826 Kaylie 37.373622 Kaylie [facility] Respiratory rate 18 /min 18 /min [facility] Oxygen 96 % 96 % [place] saturation in Medical Arterial blood Center by Pulse oximetry Heart rate 94 /min 94 /min [facility] Diastolic blood 90 mm[Hg] 90 mm[Hg] [facility] [place] Systolic blood 160 mm[Hg] 160 mm[Hg] [facility] Body temperature 36.610440 Kaylie 36.262560 Kaylie [facility] Respiratory rate 18 /min 18 /min [facility] Oxygen 98 % 98 % [place] saturation in Medical Arterial blood Center by Pulse oximetry Heart rate 65 /min 65 /min [facility] Diastolic blood 70 mm[Hg] 70 mm[Hg] [facility] [place] Systolic blood 122 mm[Hg] 122 mm[Hg] [facility] Body temperature 36.941759 Kaylie 36.801345 Kay[facility] Respiratory rate 18 /min 18 /min [facility] Oxygen 96 % 96 % [place] saturation in Medical Arterial blood Center by Pulse oximetry Heart rate 91 /min 91 /min [facility] Diastolic blood 77 mm[Hg] 77 mm[Hg] [facility] Systolic blood 126 mm[Hg] 126 mm[Hg] [facility] Body temperature 37.155460 Kaylie 37.676711 Kay[facility] Respiratory rate 16 /min 16 /min [facility] Oxygen 94 % 94 % [place] saturation in Medical Arterial blood Center by Pulse oximetry Heart rate 100 /min 100 /min [facility] Diastolic blood 92 mm[Hg] 92 mm[Hg] [facility] pressure Medical Center Systolic blood 140 mm[Hg] 140 mm[Hg] [facility] Body temperature 36.789532 Kaylie 36.703081 Kay[facility] Respiratory rate 18 /min 18 /min [facility] Oxygen 96 % 96 % [place] saturation in Medical Arterial blood Center by Pulse oximetry Heart rate 85 /min 85 /min [facility] Diastolic blood 82 mm[Hg] 82 mm[Hg] [facility] Systolic blood 136 mm[Hg] 136 mm[Hg] [facility] [place] Body temperature 36.367726 Kaylie 36.211988 Kay[facility] Respiratory rate 18 /min 18 /min [facility] Oxygen 97 % 97 % [place] saturation in Medical Arterial blood Center by Pulse oximetry Heart rate 90 /min 90 /min [facility] Diastolic blood 82 mm[Hg] 82 mm[Hg] [facility] pressure Medical [place] Systolic blood 145 mm[Hg] 145 mm[Hg] [facility] Body temperature 36.934196 Kaylie 36.015048 Kay[facility] Respiratory rate 18 /min 18 /min [facility] Oxygen 97 % 97 % [place] saturation in Medical Arterial blood Center by Pulse oximetry Heart rate 93 /min 93 /min [facility] Diastolic blood 88 mm[Hg] 88 mm[Hg] [facility] Systolic blood 151 mm[Hg] 151 mm[Hg] [facility] [place] Body temperature 36.492139 Kaylie 36.174886 [facility] Respiratory rate 16 /min 16 /min [facility] Oxygen 97 % 97 % [place] saturation in Medical Arterial blood Center by Pulse oximetry Heart rate 77 /min 77 /min [facility] Diastolic blood 60 mm[Hg] 60 mm[Hg] [facility] Systolic blood 130 mm[Hg] 130 mm[Hg] [facility] [place] Body temperature 36.542168 Kaylie 36.702935 Kay[facility] Respiratory rate 18 /min 18 /min [facility] Oxygen 97 % 97 % [place] saturation in Medical Arterial blood Center by Pulse oximetry Heart rate 83 /min 83 /min [facility] Diastolic blood 58 mm[Hg] 58 mm[Hg] [facility] pressure Medical Center Systolic blood 137 mm[Hg] 137 mm[Hg] [facility] Body temperature 36.020884 Kaylie 36.887218 [facility] Respiratory rate 19 /min 19 /min [facility] Oxygen 97 % 97 % [place] saturation in Medical Arterial blood Center by Pulse oximetry Heart rate 76 /min 76 /min [facility] Diastolic blood 78 mm[Hg] 78 mm[Hg] [facility] pressure Medical Center Systolic blood 130 mm[Hg] 130 mm[Hg] [facility] Body temperature 36.939419 Kaylie 36.808354 [facility] Respiratory rate 16 /min 16 /min [facility] Oxygen 96 % 96 % [place] saturation in Medical Arterial blood Center by Pulse oximetry Heart rate 90 /min 90 /min [facility] Diastolic blood 60 mm[Hg] 60 mm[Hg] [facility] Center Systolic blood 128 mm[Hg] 128 mm[Hg] [facility] Body weight 95.949901 kg 95.256093 kg [facility] [place] Body temperature 36.745338 Kaylie 36.650575 [facility] Respiratory rate 18 /min 18 /min [facility] Oxygen 98 % 98 % [place] saturation in Medical Arterial blood Center by Pulse oximetry Heart rate 78 /min 78 /min [facility] Body height 185.828289 cm 185.322246 cm [facility] Diastolic blood 78 mm[Hg] 78 mm[Hg] [facility] Systolic blood 142 mm[Hg] 142 mm[Hg] [facility] Center Body mass index 27.6 kg/m2 27.6 kg/m2 [facility] (BMI) [Ratio] Medical Center Body temperature 36.688822 Kaylie 36.562800 [facility] Respiratory rate 20 /min 20 /min [facility] Oxygen 92 % 92 % [place] saturation in Medical Arterial blood Center by Pulse oximetry Heart rate 94 /min 94 /min [facility] Diastolic blood 51 mm[Hg] 51 mm[Hg] [facility] Systolic blood 104 mm[Hg] 104 mm[Hg] [facility] Body temperature 36.137866 Kaylie 36.676121 [facility] Respiratory rate 16 /min 16 /min [facility] Oxygen 99 % 99 % [place] saturation in Medical Arterial blood Center by Pulse oximetry Heart rate 76 /min 76 /min [facility] Diastolic blood 87 mm[Hg] 87 mm[Hg] [facility] pressure Medical Center Systolic blood 143 mm[Hg] 143 mm[Hg] [facility] Body temperature 37.693956 Kaylie 37.586955 Kay[facility] Oxygen 94 % 94 % [place] saturation in Medical Arterial blood Center by Pulse oximetry Heart rate 77 /min 77 /min [facility] Diastolic blood 76 mm[Hg] 76 mm[Hg] [facility] Systolic blood 145 mm[Hg] 145 mm[Hg] [facility] Body temperature 36.712910 Kaylie 36.224496 [facility] Respiratory rate 17 /min 17 /min [facility] Oxygen 98 % 98 % [place] saturation in Medical Arterial blood Center by Pulse oximetry Heart rate 83 /min 83 /min [facility] Diastolic blood 63 mm[Hg] 63 mm[Hg] [facility] Systolic blood 131 mm[Hg] 131 mm[Hg] [facility] Body temperature 35.763724 Kaylie 35.577594 Kay[facility] Respiratory rate 18 /min 18 /min [facility] Oxygen 97 % 97 % [place] saturation in Medical Arterial blood Center by Pulse oximetry Heart rate 87 /min 87 /min [facility] Diastolic blood 52 mm[Hg] 52 mm[Hg] [facility] pressure Medical Center Systolic blood 127 mm[Hg] 127 mm[Hg] [facility] Body temperature 36.569480 Kaylie 36.944618 [facility] Respiratory rate 18 /min 18 /min [facility] Oxygen 99 % 99 % [place] saturation in Medical Arterial blood Center by Pulse oximetry Heart rate 80 /min 80 /min [facility] Diastolic blood 81 mm[Hg] 81 mm[Hg] [facility] [place] Systolic blood 123 mm[Hg] 123 mm[Hg] [facility] Body temperature 36.927618 Kaylie 36.410147 [facility] Respiratory rate 18 /min 18 /min [facility] Oxygen 97 % 97 % [place] saturation in Medical Arterial blood Center by Pulse oximetry Heart rate 68 /min 68 /min [facility] Diastolic blood 78 mm[Hg] 78 mm[Hg] [facility] [place] Systolic blood 132 mm[Hg] 132 mm[Hg] [facility] Body temperature 36.482788 Kaylie 36.881554 [facility] Respiratory rate 17 /min 17 /min [facility] Oxygen 98 % 98 % [place] saturation in Medical Arterial blood Center by Pulse oximetry Heart rate 85 /min 85 /min [facility] Diastolic blood 65 mm[Hg] 65 mm[Hg] [facility] [place] Systolic blood 132 mm[Hg] 132 mm[Hg] [facility] Body temperature 36.439106 Kaylie 36.384156 [facility] Respiratory rate 20 /min 20 /min [facility] Oxygen 95 % 95 % [place] saturation in Medical Arterial blood Center by Pulse oximetry Heart rate 89 /min 89 /min [facility] Diastolic blood 77 mm[Hg] 77 mm[Hg] [facility] [place] Systolic blood 135 mm[Hg] 135 mm[Hg] [facility] Body temperature 36.379401 Kaylie 36.410241 [facility] Respiratory rate 20 /min 20 /min [facility] Heart rate 90 /min 90 /min [facility] Diastolic blood 72 mm[Hg] 72 mm[Hg] [facility] Systolic blood 126 mm[Hg] 126 mm[Hg] [facility] Body weight 125.232070 kg 125.622844 kg [facility] [place] Body temperature 36.638804 Kaylie 36.826200 [facility] Respiratory rate 18 /min 18 /min [facility] Oxygen 98 % 98 % [place] saturation in Medical Arterial blood Center by Pulse oximetry Heart rate 80 /min 80 /min [facility] Body height 172.298008 cm 172.443979 cm [facility] Diastolic blood 78 mm[Hg] 78 mm[Hg] [facility] Systolic blood 112 mm[Hg] 112 mm[Hg] [facility] Body mass index 41.9 kg/m2 41.9 kg/m2 [facility] (BMI) [Ratio] Medical Center Body weight 90.878287 kg 90.850002 kg [facility] Body temperature 36.380761 Kaylie 36.544010 [facility] Respiratory rate 18 /min 18 /min [facility] Oxygen 99 % 99 % [facility] saturation in Medical Arterial blood Center by Pulse oximetry Heart rate 81 /min 81 /min [facility] Body height 167.520092 cm 167.817122 cm [facility] Diastolic blood 84 mm[Hg] 84 mm[Hg] [facility] Systolic blood 146 mm[Hg] 146 mm[Hg] [facility] Body mass index 32.0 kg/m2 32.0 kg/m2 [facility] (BMI) [Ratio] Medical Center Body temperature 36.362703 Kaylie 36.432891 [facility] Respiratory rate 19 /min 19 /min [facility] Oxygen 90 % 90 % [place] saturation in Medical Arterial blood Center by Pulse oximetry Heart rate 97 /min 97 /min [facility] Diastolic blood 63 mm[Hg] 63 mm[Hg] [facility] Systolic blood 109 mm[Hg] 109 mm[Hg] [facility] Body temperature 36.020393 Kaylie 36.737754 [facility] Respiratory rate 18 /min 18 /min [facility] Oxygen 97 % 97 % [place] saturation in Medical Arterial blood Center by Pulse oximetry Heart rate 76 /min 76 /min [facility] Diastolic blood 88 mm[Hg] 88 mm[Hg] [facility] Systolic blood 144 mm[Hg] 144 mm[Hg] [facility] Body temperature 36.852056 Kaylie 36.407725 [facility] Respiratory rate 17 /min 17 /min [facility] Oxygen 94 % 94 % [place] saturation in Medical Arterial blood Center by Pulse oximetry Heart rate 89 /min 89 /min [facility] Diastolic blood 78 mm[Hg] 78 mm[Hg] [facility] pressure Medical Center Systolic blood 127 mm[Hg] 127 mm[Hg] [facility] Respiratory rate 17 /min 17 /min [facility] Oxygen 95 % 95 % [place] saturation in Medical Arterial blood Center by Pulse oximetry Heart rate 118 /min 118 /min [facility] Diastolic blood 71 mm[Hg] 71 mm[Hg] [facility] pressure Medical Center Systolic blood 131 mm[Hg] 131 mm[Hg] [facility] Body temperature 37.257110 Kaylie 37.848209 [facility] Respiratory rate 18 /min 18 /min [facility] Oxygen 96 % 96 % [place] saturation in Medical Arterial blood Center by Pulse oximetry Heart rate 103 /min 103 /min [facility] Diastolic blood 63 mm[Hg] 63 mm[Hg] [facility] pressure Medical Center Systolic blood 138 mm[Hg] 138 mm[Hg] [facility] Body temperature 37.325119 Kaylie 37.330309 [facility] Respiratory rate 18 /min 18 /min [facility] Oxygen 97 % 97 % [place] saturation in Medical Arterial blood Center by Pulse oximetry Heart rate 94 /min 94 /min [facility] Diastolic blood 84 mm[Hg] 84 mm[Hg] [facility] pressure Medical Center Systolic blood 129 mm[Hg] 129 mm[Hg] [facility] [place] Body temperature 37.649388 Kaylie 37.227565 [facility] Respiratory rate 18 /min 18 /min [facility] Oxygen 95 % 95 % [place] saturation in Medical Arterial blood Center by Pulse oximetry Heart rate 92 /min 92 /min [facility] Diastolic blood 86 mm[Hg] 86 mm[Hg] [facility] pressure Medical Center Systolic blood 128 mm[Hg] 128 mm[Hg] [facility] Body temperature 36.219812 Kaylie 36.772042 [facility] Respiratory rate 16 /min 16 /min [facility] Oxygen 91 % 91 % [place] saturation in Medical Arterial blood Center by Pulse oximetry Heart rate 89 /min 89 /min [facility] Diastolic blood 51 mm[Hg] 51 mm[Hg] [facility] Systolic blood 97 mm[Hg] 97 mm[Hg] [facility] Body temperature 36.696707 Kaylie 36.417366 [facility] Respiratory rate 17 /min 17 /min [facility] Oxygen 98 % 98 % [place] saturation in Medical Arterial blood Center by Pulse oximetry Heart rate 81 /min 81 /min [facility] Diastolic blood 87 mm[Hg] 87 mm[Hg] [facility] [place] Systolic blood 132 mm[Hg] 132 mm[Hg] [facility] Body temperature 36.464836 Kaylie 36.842687 [facility] Respiratory rate 18 /min 18 /min [facility] Oxygen 96 % 96 % [place] saturation in Medical Arterial blood Center by Pulse oximetry Heart rate 89 /min 89 /min [facility] Diastolic blood 90 mm[Hg] 90 mm[Hg] [facility] [place] Systolic blood 138 mm[Hg] 138 mm[Hg] [facility] Body temperature 36.263164 Kaylie 36.704392 [facility] Respiratory rate 17 /min 17 /min [facility] Oxygen 98 % 98 % [place] saturation in Medical Arterial blood Center by Pulse oximetry Heart rate 92 /min 92 /min [facility] Diastolic blood 81 mm[Hg] 81 mm[Hg] [facility] Systolic blood 115 mm[Hg] 115 mm[Hg] [facility] Body temperature 36.081973 Kaylie 36.750569 [facility] Respiratory rate 17 /min 17 /min [facility] Oxygen 100 % 100 % [place] saturation in Medical Arterial blood Center by Pulse oximetry Heart rate 91 /min 91 /min [facility] Diastolic blood 72 mm[Hg] 72 mm[Hg] [facility] Systolic blood 120 mm[Hg] 120 mm[Hg] [facility] Body weight 100.050377 kg 100.070240 [facility] Body temperature 37.583367 Kaylie 37.067547 [facility] Respiratory rate 18 /min 18 /min [facility] Oxygen 98 % 98 % [place] saturation in Medical Arterial blood Center by Pulse oximetry Heart rate 68 /min 68 /min [facility] Body height 182.457821 cm 182.302432 cm [facility] Diastolic blood 78 mm[Hg] 78 mm[Hg] [facility] pressure Medical Center Systolic blood 135 mm[Hg] 135 mm[Hg] [facility] Body mass index 29.8 kg/m2 29.8 kg/m2 [facility] (BMI) [Ratio] Medical Center Body temperature 36.904415 Kaylie 36.752856 [facility] Respiratory rate 18 /min 18 /min [facility] Oxygen 96 % 96 % [place] saturation in Medical Arterial blood Center by Pulse oximetry Heart rate 80 /min 80 /min [facility] Diastolic blood 40 mm[Hg] 40 mm[Hg] [facility] Systolic blood 82 mm[Hg] 82 mm[Hg] [facility] Body weight 80.643182 kg 80.652298 kg [facility] Body temperature 36.467457 Kaylie 36.681106 [facility] Respiratory rate 17 /min 17 /min [facility] Oxygen 98 % 98 % [place] saturation in Medical Arterial blood Center by Pulse oximetry Heart rate 81 /min 81 /min [facility] Body height 177.346144 cm 177.896456 cm [facility] Diastolic blood 106 mm[Hg] 106 mm[Hg] [facility] Systolic blood 146 mm[Hg] 146 mm[Hg] [facility] Body mass index 25.3 kg/m2 25.3 kg/m2 [facility] (BMI) [Ratio] Medical Center Body temperature 37.582592 Kaylie 37.793059 [facility] Respiratory rate 18 /min 18 /min [facility] Oxygen 98 % 98 % [place] saturation in Medical Arterial blood Center by Pulse oximetry Heart rate 78 /min 78 /min [facility] Body height 182.350702 cm 182.704166 cm [facility] Diastolic blood 87 mm[Hg] 87 mm[Hg] [facility] pressure Medical Center Systolic blood 134 mm[Hg] 134 mm[Hg] [facility] Body temperature 36.273813 Kaylie 36.163109 [facility] Respiratory rate 18 /min 18 /min [facility] Oxygen 97 % 97 % [place] saturation in Medical Arterial blood Center by Pulse oximetry Heart rate 89 /min 89 /min [facility] Diastolic blood 64 mm[Hg] 64 mm[Hg] [facility] Systolic blood 125 mm[Hg] 125 mm[Hg] [facility] Body weight 100.198803 kg 100.053195 kg [facility] Body temperature 37.602437 Kaylie 37.063445 [facility] Respiratory rate 18 /min 18 /min [facility] Oxygen 98 % 98 % [place] saturation in Medical Arterial blood Center by Pulse oximetry Heart rate 74 /min 74 /min [facility] Body height 180.891359 cm 180.960839 cm [facility] Diastolic blood 98 mm[Hg] 98 mm[Hg] [facility] pressure Medical Center Systolic blood 138 mm[Hg] 138 mm[Hg] [facility] Body mass index 30.7 kg/m2 30.7 kg/m2 [facility] (BMI) [Ratio] Medical Center Body temperature 36.675616 Kaylie 36.258548 [facility] Respiratory rate 17 /min 17 /min [facility] Oxygen 97 % 97 % [place] saturation in Medical Arterial blood Center by Pulse oximetry Heart rate 80 /min 80 /min [facility] Diastolic blood 74 mm[Hg] 74 mm[Hg] [facility] pressure Medical Center Systolic blood 130 mm[Hg] 130 mm[Hg] [facility] Body temperature 36.915668 Kaylie 36.706849 [facility] Respiratory rate 18 /min 18 /min [facility] Oxygen 97 % 97 % [place] saturation in Medical Arterial blood Center by Pulse oximetry Heart rate 78 /min 78 /min [facility] Diastolic blood 63 mm[Hg] 63 mm[Hg] [facility] Systolic blood 129 mm[Hg] 129 mm[Hg] [facility] Body temperature 36.715481 Kaylie 36.668895 [facility] Respiratory rate 17 /min 17 /min [facility] Oxygen 98 % 98 % [facility] saturation in Medical Arterial blood Center by Pulse oximetry Heart rate 75 /min 75 /min [facility] Diastolic blood 75 mm[Hg] 75 mm[Hg] [facility] pressure Medical Center Systolic blood 119 mm[Hg] 119 mm[Hg] [facility] Body temperature 36.791305 Kaylie 36.719751 [facility] Respiratory rate 17 /min 17 /min [facility] Oxygen 98 % 98 % [facility] saturation in Medical Arterial blood Center by Pulse oximetry Heart rate 80 /min 80 /min [facility] Diastolic blood 70 mm[Hg] 70 mm[Hg] [facility] Systolic blood 112 mm[Hg] 112 mm[Hg] [facility] Body weight 95.827224 kg 95.165083 kg [facility] Body temperature 37.329239 Kaylie 37.048552 [facility] Respiratory rate 18 /min 18 /min [facility] Oxygen 98 % 98 % [facility] saturation in Medical Arterial blood Center by Pulse oximetry Heart rate 84 /min 84 /min [facility] Body height 175.819979 cm 175.429460 cm [facility] Diastolic blood 84 mm[Hg] 84 mm[Hg] [facility] pressure Medical Center Systolic blood 140 mm[Hg] 140 mm[Hg] [facility] Body mass index 30.9 kg/m2 30.9 kg/m2 [facility] (BMI) [Ratio] Medical Center Body temperature 36.398813 Kaylie 36.641309 [facility] Respiratory rate 16 /min 16 /min [facility] Oxygen 97 % 97 % [facility] saturation in Medical Arterial blood Center by Pulse oximetry Heart rate 88 /min 88 /min [facility] Diastolic blood 84 mm[Hg] 84 mm[Hg] [facility] Systolic blood 135 mm[Hg] 135 mm[Hg] [facility] [place] Body temperature 36.123262 Kaylie 36.772276 [facility] Respiratory rate 18 /min 18 /min [facility] Oxygen 97 % 97 % [place] saturation in Medical Arterial blood Center by Pulse oximetry Heart rate 92 /min 92 /min [facility] Diastolic blood 94 mm[Hg] 94 mm[Hg] [facility] pressure Medical Center Systolic blood 175 mm[Hg] 175 mm[Hg] [facility] [place] Body temperature 37.061574 Kaylie 37.295539 [facility] Respiratory rate 20 /min 20 /min [facility] Oxygen 97 % 97 % [place] saturation in Medical Arterial blood Center by Pulse oximetry Heart rate 97 /min 97 /min [facility] Diastolic blood 98 mm[Hg] 98 mm[Hg] [facility] [place] Systolic blood 158 mm[Hg] 158 mm[Hg] [facility] Body temperature 36.247137 Kaylie 36.915422 [facility] Respiratory rate 19 /min 19 /min [facility] Oxygen 95 % 95 % [place] saturation in Medical Arterial blood Center by Pulse oximetry Heart rate 104 /min 104 /min [facility] Diastolic blood 91 mm[Hg] 91 mm[Hg] [facility] Systolic blood 160 mm[Hg] 160 mm[Hg] [facility] Body temperature 36.609887 Kaylie 36.601363 [facility] Respiratory rate 19 /min 19 /min [facility] Oxygen 95 % 95 % [place] saturation in Medical Arterial blood Center by Pulse oximetry Heart rate 101 /min 101 /min [facility] Diastolic blood 98 mm[Hg] 98 mm[Hg] [facility] Systolic blood 171 mm[Hg] 171 mm[Hg] [facility] Body temperature 37.079272 Kaylie 37.513389 [facility] Respiratory rate 18 /min 18 /min [facility] Oxygen 93 % 93 % [place] saturation in Medical Arterial blood Center by Pulse oximetry Heart rate 101 /min 101 /min [facility] Diastolic blood 84 mm[Hg] 84 mm[Hg] [facility] Systolic blood 140 mm[Hg] 140 mm[Hg] [facility] Body temperature 36.923666 Kaylie 36.835981 [facility] Respiratory rate 18 /min 18 /min [facility] Oxygen 92 % 92 % [place] saturation in Medical Arterial blood Center by Pulse oximetry Heart rate 95 /min 95 /min [facility] Diastolic blood 84 mm[Hg] 84 mm[Hg] [facility] pressure Medical Center Systolic blood 150 mm[Hg] 150 mm[Hg] [facility] [place] Body temperature 36.079975 Kaylie 36.745753 [facility] Respiratory rate 16 /min 16 /min [facility] Oxygen 98 % 98 % [place] saturation in Medical Arterial blood Center by Pulse oximetry Heart rate 87 /min 87 /min [facility] Diastolic blood 72 mm[Hg] 72 mm[Hg] [facility] [place] Systolic blood 118 mm[Hg] 118 mm[Hg] [facility] Body temperature 36.326747 Kaylie 36.157276 [facility] Respiratory rate 16 /min 16 /min [facility] Oxygen 95 % 95 % [place] saturation in Medical Arterial blood Center by Pulse oximetry Heart rate 82 /min 82 /min [facility] Diastolic blood 90 mm[Hg] 90 mm[Hg] [facility] [place] Systolic blood 148 mm[Hg] 148 mm[Hg] [facility] Body temperature 36.328640 Kaylie 36.769988 [facility] Respiratory rate 18 /min 18 /min [facility] Oxygen 94 % 94 % [place] saturation in Medical Arterial blood Center by Pulse oximetry Heart rate 106 /min 106 /min [facility] Diastolic blood 83 mm[Hg] 83 mm[Hg] [facility] Systolic blood 142 mm[Hg] 142 mm[Hg] [facility] Body temperature 36.471312 Kaylie 36.611611 [facility] Respiratory rate 22 /min 22 /min [facility] Oxygen 98 % 98 % [place] saturation in Medical Arterial blood Center by Pulse oximetry Heart rate 95 /min 95 /min [facility] Diastolic blood 81 mm[Hg] 81 mm[Hg] [facility] Systolic blood 127 mm[Hg] 127 mm[Hg] [facility] Body temperature 36.365503 Kaylie 36.843884 [facility] Respiratory rate 16 /min 16 /min [facility] Oxygen 97 % 97 % [place] saturation in Medical Arterial blood Center by Pulse oximetry Heart rate 100 /min 100 /min [facility] Diastolic blood 75 mm[Hg] 75 mm[Hg] [facility] Systolic blood 136 mm[Hg] 136 mm[Hg] [facility] Body temperature 36.932800 Kaylie 36.657946 [facility] Respiratory rate 18 /min 18 /min [facility] Oxygen 97 % 97 % [facility] saturation in Medical Arterial blood Center by Pulse oximetry Heart rate 84 /min 84 /min [facility] Diastolic blood 64 mm[Hg] 64 mm[Hg] [facility] Systolic blood 109 mm[Hg] 109 mm[Hg] [facility] Body weight 102.775854 kg 102.216165 kg [facility] Body temperature 36.679051 Kaylie 36.163602 [facility] Respiratory rate 17 /min 17 /min [facility] Oxygen 94 % 94 % [facility] saturation in Medical Arterial blood Center by Pulse oximetry Heart rate 98 /min 98 /min [facility] Body height 177.640224 cm 177.361129 cm [facility] Diastolic blood 96 mm[Hg] 96 mm[Hg] [facility] Systolic blood 145 mm[Hg] 145 mm[Hg] [facility] [place] Body mass index 32.2 kg/m2 32.2 kg/m2 [facility] (BMI) [Ratio] Medical Center Body temperature 36.599471 Kaylie 36.018621 [facility] Respiratory rate 18 /min 18 /min [facility] Heart rate 84 /min 84 /min [facility] Diastolic blood 89 mm[Hg] 89 mm[Hg] [facility] Systolic blood 150 mm[Hg] 150 mm[Hg] [facility] Body temperature 36.310634 Kaylie 36.408707 [facility] Respiratory rate 18 /min 18 /min [facility] Heart rate 89 /min 89 /min [facility] Diastolic blood 86 mm[Hg] 86 mm[Hg] [facility] pressure Medical Center Systolic blood 149 mm[Hg] 149 mm[Hg] [facility] Body temperature 36.046972 Kaylie 36.267442 [facility] Respiratory rate 18 /min 18 /min [facility] Heart rate 84 /min 84 /min [facility] Diastolic blood 91 mm[Hg] 91 mm[Hg] [facility] pressure [facility] Center Systolic blood 148 mm[Hg] 148 mm[Hg] [facility] Body temperature 36.344029 Kaylie 36.771097 [facility] Respiratory rate 20 /min 20 /min [facility] Oxygen 97 % 97 % [facility] saturation in Medical Arterial blood Center by Pulse oximetry Heart rate 90 /min 90 /min [facility] Diastolic blood 89 mm[Hg] 89 mm[Hg] [facility] [place] Systolic blood 157 mm[Hg] 157 mm[Hg] [facility] [place] Body temperature 37.334901 Kaylie 37.679477 [facility] Respiratory rate 20 /min 20 /min [facility] [facility] Heart rate 88 /min 88 /min [facility] Diastolic blood 88 mm[Hg] 88 mm[Hg] [facility] pressure [facility] Center Systolic blood 154 mm[Hg] 154 mm[Hg] [facility] Oxygen 94 % 94 % [facility] saturation in Medical Arterial blood Center by Pulse oximetry Oxygen 94 % 94 % [facility] saturation in Medical Arterial blood Center by Pulse oximetry Body temperature 38.575617 Kaylie 38.465798 [facility] Respiratory rate 20 /min 20 /min [facility] Heart rate 95 /min 95 /min [facility] Diastolic blood 82 mm[Hg] 82 mm[Hg] [facility] Systolic blood 151 mm[Hg] 151 mm[Hg] [facility] Body temperature 36.994336 Kaylie 36.623757 [facility] Respiratory rate 18 /min 18 /min [facility] Heart rate 100 /min 100 /min [facility] Diastolic blood 80 mm[Hg] 80 mm[Hg] [facility] Center Systolic blood 126 mm[Hg] 126 mm[Hg] [facility] [place] Body temperature 37.822771 Kaylie 37.543582 [facility] Respiratory rate 18 /min 18 /min [facility] Oxygen 98 % 98 % [facility] [place] saturation in Medical Arterial blood Center by Pulse oximetry Heart rate 93 /min 93 /min [facility] Diastolic blood 84 mm[Hg] 84 mm[Hg] [facility] Systolic blood 143 mm[Hg] 143 mm[Hg] [facility] Body temperature 36.192088 Kaylie 36.407314 [facility] Respiratory rate 18 /min 18 /min [facility] Heart rate 92 /min 92 /min [facility] Diastolic blood 91 mm[Hg] 91 mm[Hg] [facility] Systolic blood 152 mm[Hg] 152 mm[Hg] [facility] Body temperature 37.076849 Kaylie 37.771529 [facility] Oxygen 95 % 95 % [facility] [place] saturation in Medical Arterial blood Center by Pulse oximetry Heart rate 92 /min 92 /min [facility] Diastolic blood 77 mm[Hg] 77 mm[Hg] [facility] Systolic blood 149 mm[Hg] 149 mm[Hg] [facility] Respiratory rate 16 /min 16 /min [facility] Oxygen 97 % 97 % [facility] [place] saturation in Medical Arterial blood Center by Pulse oximetry Body temperature 36.318094 Kaylie 36.986011 [facility] Respiratory rate 20 /min 20 /min [facility] Oxygen 96 % 96 % [facility] [place] saturation in Medical Arterial blood Center by Pulse oximetry Heart rate 88 /min 88 /min [facility] Diastolic blood 67 mm[Hg] 67 mm[Hg] [facility] [place] Systolic blood 132 mm[Hg] 132 mm[Hg] [facility] Body temperature 36.061335 Kaylie 36.994188 [facility] Respiratory rate 20 /min 20 /min [facility] Oxygen 96 % 96 % [facility] [place] saturation in Medical Arterial blood Center by Pulse oximetry Heart rate 79 /min 79 /min [facility] Diastolic blood 64 mm[Hg] 64 mm[Hg] [facility] Center Systolic blood 111 mm[Hg] 111 mm[Hg] [facility] Body temperature 37.948026 Kaylie 37.784296 [facility] Respiratory rate 20 /min 20 /min [facility] Oxygen 98 % 98 % [facility] [place] saturation in Medical Arterial blood Center by Pulse oximetry Heart rate 88 /min 88 /min [facility] Diastolic blood 85 mm[Hg] 85 mm[Hg] [facility] Center Systolic blood 150 mm[Hg] 150 mm[Hg] [facility] Body temperature 36.707113 Kaylie 36.991050 [facility] Respiratory rate 20 /min 20 /min [facility] Oxygen 98 % 98 % [facility] [place] saturation in Medical Arterial blood Center by Pulse oximetry Heart rate 100 /min 100 /min [facility] Diastolic blood 105 mm[Hg] 105 mm[Hg] [facility] Center Systolic blood 176 mm[Hg] 176 mm[Hg] [facility] Body temperature 36.888261 Kaylie 36.740958 [facility] Respiratory rate 20 /min 20 /min [facility] Oxygen 98 % 98 % [facility] [place] saturation in Medical Arterial blood Center by Pulse oximetry Heart rate 93 /min 93 /min [facility] Diastolic blood 115 mm[Hg] 115 mm[Hg] [facility] Center Systolic blood 182 mm[Hg] 182 mm[Hg] [facility] Diastolic blood 108 mm[Hg] 108 mm[Hg] [facility] Center Systolic blood 195 mm[Hg] 195 mm[Hg] [facility] Body temperature 36.600938 Kaylie 36.216264 [facility] Respiratory rate 20 /min 20 /min [facility] Oxygen 98 % 98 % [facility] [place] saturation in Medical Arterial blood Center by Pulse oximetry Heart rate 94 /min 94 /min [facility] Diastolic blood 101 mm[Hg] 101 mm[Hg] [facility] Systolic blood 160 mm[Hg] 160 mm[Hg] [facility] Body temperature 36.374691 Kaylie 36.902727 [facility] Respiratory rate 17 /min 17 /min [facility] Oxygen 95 % 95 % [facility] saturation in Medical Arterial blood Center by Pulse oximetry Heart rate 75 /min 75 /min [facility] Diastolic blood 89 mm[Hg] 89 mm[Hg] [facility] pressure [facility] Center Systolic blood 165 mm[Hg] 165 mm[Hg] [facility] Body temperature 36.888524 Kaylie 36.323744 [facility] Respiratory rate 18 /min 18 /min [facility] Oxygen 96 % 96 % [facility] saturation in Medical Arterial blood Center by Pulse oximetry Heart rate 93 /min 93 /min [facility] Diastolic blood 84 mm[Hg] 84 mm[Hg] [facility] Systolic blood 139 mm[Hg] 139 mm[Hg] [facility] Body weight 95.316943 kg 95.599870 kg [facility] Body temperature 37.279798 Kaylie 37.346086 [facility] Respiratory rate 18 /min 18 /min [facility] Oxygen 98 % 98 % [facility] saturation in Medical Arterial blood Center by Pulse oximetry Heart rate 84 /min 84 /min [facility] Body height 182.523280 cm 182.901334 cm [facility] Diastolic blood 84 mm[Hg] 84 mm[Hg] [facility] pressure [facility] Center Systolic blood 138 mm[Hg] 138 mm[Hg] [facility] Body mass index 28.4 kg/m2 28.4 kg/m2 [facility] (BMI) [Ratio] Medical Center Body temperature 36.442542 Kaylie 36.475924 [facility] Respiratory rate 18 /min 18 /min [facility] Oxygen 97 % 97 % [facility] saturation in Medical Arterial blood Center by Pulse oximetry Heart rate 108 /min 108 /min [facility] Diastolic blood 76 mm[Hg] 76 mm[Hg] [facility] Systolic blood 121 mm[Hg] 121 mm[Hg] [facility] Body temperature 36.906975 Kaylie 36.194096 [facility] Respiratory rate 20 /min 20 /min [facility] Oxygen 92 % 92 % [facility] [place] saturation in Medical Arterial blood Center by Pulse oximetry Heart rate 121 /min 121 /min [facility] Diastolic blood 70 mm[Hg] 70 mm[Hg] [facility] Center Systolic blood 115 mm[Hg] 115 mm[Hg] [facility] Body temperature 37.208628 Kaylie 37.887584 [facility] Respiratory rate 18 /min 18 /min [facility] Oxygen 95 % 95 % [facility] [place] saturation in Medical Arterial blood Center by Pulse oximetry Heart rate 120 /min 120 /min [facility] Diastolic blood 52 mm[Hg] 52 mm[Hg] [facility] [place] Systolic blood 135 mm[Hg] 135 mm[Hg] [facility] Oxygen 95 % 95 % [facility] [place] saturation in Medical Arterial blood Center by Pulse oximetry Diastolic blood 65 mm[Hg] 65 mm[Hg] [facility] Systolic blood 109 mm[Hg] 109 mm[Hg] [facility] Body temperature 37.982249 Kaylie 37.201062 [facility] Respiratory rate 18 /min 18 /min [facility] Oxygen 90 % 90 % [facility] [place] saturation in Medical Arterial blood Center by Pulse oximetry Heart rate 112 /min 112 /min [facility] Diastolic blood 21 mm[Hg] 21 mm[Hg] [facility] Systolic blood 109 mm[Hg] 109 mm[Hg] [facility] Body temperature 36.335073 Kaylie 36.736965 [facility] Respiratory rate 15 /min 15 /min [facility] Heart rate 102 /min 102 /min [facility] Body temperature 36.343466 Kaylie 36.412388 [facility] Respiratory rate 17 /min 17 /min [facility] Oxygen 98 % 98 % [facility] [place] saturation in Medical Arterial blood Center by Pulse oximetry Heart rate 81 /min 81 /min [facility] Diastolic blood 76 mm[Hg] 76 mm[Hg] [facility] Systolic blood 139 mm[Hg] 139 mm[Hg] [facility] Body temperature 36.534128 Kaylie 36.831416 [facility] Respiratory rate 18 /min 18 /min [facility] Oxygen 96 % 96 % [facility] [place] saturation in Medical Arterial blood Center by Pulse oximetry Diastolic blood 84 mm[Hg] 84 mm[Hg] [facility] pressure [facility] Center Systolic blood 143 mm[Hg] 143 mm[Hg] [facility] Body temperature 36.000452 Kaylie 36.824671 [facility] Respiratory rate 17 /min 17 /min [facility] Oxygen 99 % 99 % [place] saturation in Medical Arterial blood Center by Pulse oximetry Heart rate 89 /min 89 /min [facility] Diastolic blood 86 mm[Hg] 86 mm[Hg] [facility] Systolic blood 132 mm[Hg] 132 mm[Hg] [facility] Body weight 100.467191 kg 100.341919 kg [facility] Body temperature 37.689529 Kaylie 37.990697 [facility] Respiratory rate 18 /min 18 /min [facility] Oxygen 98 % 98 % [place] saturation in Medical Arterial blood Center by Pulse oximetry Heart rate 87 /min 87 /min [facility] Body height 180.656978 cm 180.815939 cm [facility] Diastolic blood 68 mm[Hg] 68 mm[Hg] [facility] pressure [facility] Center Systolic blood 137 mm[Hg] 137 mm[Hg] [facility] Body mass index 30.7 kg/m2 30.7 kg/m2 [facility] (BMI) [Ratio] Medical Center Body temperature 36.910029 Kaylie 36.671066 [facility] Respiratory rate 18 /min 18 /min [facility] Oxygen 99 % 99 % [place] saturation in Medical Arterial blood Center by Pulse oximetry Heart rate 78 /min 78 /min [facility] Diastolic blood 67 mm[Hg] 67 mm[Hg] [facility] pressure [facility] Center Systolic blood 113 mm[Hg] 113 mm[Hg] [facility] Body weight 104.278552 kg 104.062339 kg [facility] Body temperature 36.075870 Kaylie 36.069052 [facility] Respiratory rate 17 /min 17 /min [facility] Oxygen 93 % 93 % [facility] saturation in Medical Arterial blood Center by Pulse oximetry Heart rate 86 /min 86 /min [facility] Body height 177.358206 cm 177.602786 cm [facility] Diastolic blood 71 mm[Hg] 71 mm[Hg] [facility] pressure [facility] Center Systolic blood 116 mm[Hg] 116 mm[Hg] [facility] Body mass index 33.0 kg/m2 33.0 kg/m2 [facility] (BMI) [Ratio] Medical Center Body temperature 36.059851 Kaylie 36.908318 [facility] Respiratory rate 16 /min 16 /min [facility] Oxygen 98 % 98 % [facility] saturation in Medical Arterial blood Center by Pulse oximetry Heart rate 70 /min 70 /min [facility] Diastolic blood 80 mm[Hg] 80 mm[Hg] [facility] Center Systolic blood 120 mm[Hg] 120 mm[Hg] [facility] Body temperature 36.345474 Kaylie 36.432918 [facility] Respiratory rate 16 /min 16 /min [facility] Oxygen 98 % 98 % [facility] saturation in Medical Arterial blood Center by Pulse oximetry Heart rate 76 /min 76 /min [facility] Diastolic blood 76 mm[Hg] 76 mm[Hg] [facility] Systolic blood 122 mm[Hg] 122 mm[Hg] [facility] Body weight 90.251833 kg 90.488276 kg [facility] Body temperature 36.761783 Kaylie 36.153580 [facility] Respiratory rate 17 /min 17 /min [facility] Oxygen 99 % 99 % [facility] saturation in Medical Arterial blood Center by Pulse oximetry Heart rate 94 /min 94 /min [facility] Body height 172.933125 cm 172.441731 cm [facility] Diastolic blood 8 mm[Hg] 8 mm[Hg] [facility] Center Systolic blood 130 mm[Hg] 130 mm[Hg] [facility] Body mass index 30.4 kg/m2 30.4 kg/m2 [facility] (BMI) [Ratio] Medical Center Body temperature 36.435425 Kaylie 36.351263 [facility] Respiratory rate 16 /min 16 /min [facility] Oxygen 98 % 98 % [facility] [place] saturation in Medical Arterial blood Center by Pulse oximetry Heart rate 84 /min 84 /min [facility] Diastolic blood 89 mm[Hg] 89 mm[Hg] [facility] Systolic blood 145 mm[Hg] 145 mm[Hg] [facility] Body temperature 36.129781 Kaylie 36.571679 [facility] Respiratory rate 16 /min 16 /min [facility] Oxygen 99 % 99 % [place] saturation in Medical Arterial blood Center by Pulse oximetry Heart rate 84 /min 84 /min [facility] Diastolic blood 89 mm[Hg] 89 mm[Hg] [facility] Systolic blood 145 mm[Hg] 145 mm[Hg] [facility] Body temperature 36.381655 Kaylie 36.811223 [facility] Respiratory rate 20 /min 20 /min [facility] Oxygen 98 % 98 % [place] saturation in Medical Arterial blood Center by Pulse oximetry Heart rate 83 /min 83 /min [facility] Diastolic blood 92 mm[Hg] 92 mm[Hg] [facility] Systolic blood 149 mm[Hg] 149 mm[Hg] [facility] Body temperature 36.574177 Kaylie 36.175132 [facility] Respiratory rate 17 /min 17 /min [facility] Oxygen 98 % 98 % [place] saturation in Medical Arterial blood Center by Pulse oximetry Heart rate 89 /min 89 /min [facility] Diastolic blood 89 mm[Hg] 89 mm[Hg] [facility] Center Systolic blood 135 mm[Hg] 135 mm[Hg] [facility] Body temperature 36.715592 Kaylie 36.859616 [facility] Respiratory rate 18 /min 18 /min [facility] Oxygen 97 % 97 % [place] saturation in Medical Arterial blood Center by Pulse oximetry Heart rate 87 /min 87 /min [facility] Diastolic blood 85 mm[Hg] 85 mm[Hg] [facility] pressure [facility] Center Systolic blood 141 mm[Hg] 141 mm[Hg] [facility] Center Systolic blood 124 mm[Hg] 124 mm[Hg] [facility] Body temperature 36.491675 Kaylie 36.999907 [facility] Respiratory rate 18 /min 18 /min [facility] Oxygen 96 % 96 % [place] saturation in Medical Arterial blood Center by Pulse oximetry Heart rate 64 /min 64 /min [facility] Diastolic blood 57 mm[Hg] 57 mm[Hg] [facility] Body temperature 36.932692 Kaylie 36.854434 [facility] Respiratory rate 19 /min 19 /min [facility] Oxygen 98 % 98 % [place] saturation in Medical Arterial blood Center by Pulse oximetry Heart rate 96 /min 96 /min [facility] Diastolic blood 71 mm[Hg] 71 mm[Hg] [facility] Systolic blood 105 mm[Hg] 105 mm[Hg] [facility] [place] Body temperature 36.748781 Kaylie 36.927013 [facility] Respiratory rate 16 /min 16 /min [facility] Oxygen 99 % 99 % [place] saturation in Medical Arterial blood Center by Pulse oximetry Heart rate 90 /min 90 /min [facility] Diastolic blood 85 mm[Hg] 85 mm[Hg] [facility] Systolic blood 137 mm[Hg] 137 mm[Hg] [facility] Body temperature 36.313791 Kaylie 36.339544 [facility] Respiratory rate 16 /min 16 /min [facility] Oxygen 96 % 96 % [place] saturation in Medical Arterial blood Center by Pulse oximetry Heart rate 76 /min 76 /min [facility] Diastolic blood 77 mm[Hg] 77 mm[Hg] [facility] pressure [facility] Center Systolic blood 140 mm[Hg] 140 mm[Hg] [facility] Body temperature 36.685974 Kaylie 36.639957 [facility] Respiratory rate 20 /min 20 /min [facility] Oxygen 96 % 96 % [place] saturation in Medical Arterial blood Center by Pulse oximetry Heart rate 92 /min 92 /min [facility] Diastolic blood 96 mm[Hg] 96 mm[Hg] [facility] pressure [facility] Center Systolic blood 120 mm[Hg] 120 mm[Hg] [facility] [place] Body temperature 36.740265 Kaylie 36.266223 [facility] Respiratory rate 18 /min 18 /min [facility] Oxygen 98 % 98 % [place] saturation in Medical Arterial blood Center by Pulse oximetry Heart rate 90 /min 90 /min [facility] Diastolic blood 76 mm[Hg] 76 mm[Hg] [facility] Systolic blood 151 mm[Hg] 151 mm[Hg] [facility] Respiratory rate 18 /min 18 /min [facility] Oxygen 100 % 100 % [place] saturation in Medical Arterial blood Center by Pulse oximetry Heart rate 74 /min 74 /min [facility] Diastolic blood 74 mm[Hg] 74 mm[Hg] [facility] pressure [facility] Center Systolic blood 130 mm[Hg] 130 mm[Hg] [facility] [place] Body temperature 36.162085 Kaylie 36.753298 [facility] Body temperature 36.192563 Kaylie 36.515703 [facility] Respiratory rate 20 /min 20 /min [facility] Oxygen 96 % 96 % [place] saturation in Medical Arterial blood Center by Pulse oximetry Heart rate 97 /min 97 /min [facility] Diastolic blood 92 mm[Hg] 92 mm[Hg] [facility] [place] Systolic blood 163 mm[Hg] 163 mm[Hg] [facility] Body temperature 36.730522 Kaylie 36.628235 [facility] Respiratory rate 17 /min 17 /min [facility] Oxygen 100 % 100 % [facility] [place] saturation in Medical Arterial blood Center by Pulse oximetry Heart rate 108 /min 108 /min [facility] Diastolic blood 90 mm[Hg] 90 mm[Hg] [facility] Systolic blood 146 mm[Hg] 146 mm[Hg] [facility] [place] Body temperature 37.904437 Kaylie 37.565229 [facility] Respiratory rate 19 /min 19 /min [facility] Oxygen 96 % 96 % [place] saturation in Medical Arterial blood Center by Pulse oximetry Heart rate 97 /min 97 /min [facility] Diastolic blood 83 mm[Hg] 83 mm[Hg] [facility] pressure [facility] Center Systolic blood 137 mm[Hg] 137 mm[Hg] [facility] Body weight 94.430984 kg 94.731944 kg [facility] Body temperature 37.262809 Kaylie 37.802094 [facility] Respiratory rate 18 /min 18 /min [facility] Oxygen 98 % 98 % [place] saturation in Medical Arterial blood Center by Pulse oximetry Heart rate 84 /min 84 /min [facility] Body height 182.943156 cm 182.136337 cm [facility] Diastolic blood 88 mm[Hg] 88 mm[Hg] [facility] pressure Medical Center Systolic blood 144 mm[Hg] 144 mm[Hg] [facility] Body mass index 28.1 kg/m2 28.1 kg/m2 [facility] (BMI) [Ratio] Medical Center Body temperature 37.276160 Kaylie 37.906905 [facility] Respiratory rate 20 /min 20 /min [facility] Oxygen 98 % 98 % [facility] saturation in Medical Arterial blood Center by Pulse oximetry Heart rate 104 /min 104 /min [facility] Diastolic blood 103 mm[Hg] 103 mm[Hg] [facility] pressure [facility] Center Systolic blood 147 mm[Hg] 147 mm[Hg] [facility] Body temperature 37.007416 Kaylie 37.424954 [facility] Respiratory rate 18 /min 18 /min [facility] Oxygen 96 % 96 % [facility] saturation in Medical Arterial blood Center by Pulse oximetry Heart rate 100 /min 100 /min [facility] Diastolic blood 89 mm[Hg] 89 mm[Hg] [facility] pressure [facility] Center Systolic blood 157 mm[Hg] 157 mm[Hg] [facility] Body weight 91.238483 kg 91.478291 kg [facility] Body temperature 37.880398 Kaylie 37.285150 [facility] Respiratory rate 18 /min 18 /min [facility] Oxygen 98 % 98 % [facility] [place] saturation in Medical Arterial blood Center by Pulse oximetry Heart rate 93 /min 93 /min [facility] Center Body height 177.768370 cm 177.919605 cm [facility] Diastolic blood 103 mm[Hg] 103 mm[Hg] [facility] pressure Medical Center Systolic blood 161 mm[Hg] 161 mm[Hg] [facility] Body mass index 28.7 kg/m2 28.7 kg/m2 [facility] (BMI) [Ratio] Medical Center Body temperature 36.385985 Kaylie 36.611839 [facility] Respiratory rate 18 /min 18 /min [facility] Center Oxygen 97 % 97 % [place] saturation in Medical Arterial blood Center by Pulse oximetry Heart rate 82 /min 82 /min [facility] Diastolic blood 88 mm[Hg] 88 mm[Hg] [facility] pressure Medical Center Systolic blood 141 mm[Hg] 141 mm[Hg] [facility] Body temperature 36.566178 Kaylie 36.244643 [facility] Respiratory rate 17 /min 17 /min [facility] Oxygen 98 % 98 % [place] saturation in Medical Arterial blood Center by Pulse oximetry Heart rate 73 /min 73 /min [facility] Diastolic blood 70 mm[Hg] 70 mm[Hg] [facility] pressure Medical Center Systolic blood 132 mm[Hg] 132 mm[Hg] [facility] Body weight 99.480960 kg 99.329853 kg [facility] Measured Medical Center Body temperature 37.056167 Kaylie 37.558200 [facility] Respiratory rate 16 /min 16 /min [facility] Oxygen 97 % 97 % [place] saturation in Medical Arterial blood Center by Pulse oximetry Heart rate 71 /min 71 /min [facility] Body height 175.975575 cm 175.612357 cm [facility] Diastolic blood 63 mm[Hg] 63 mm[Hg] [facility] pressure Medical Center Systolic blood 148 mm[Hg] 148 mm[Hg] [facility] Body mass index 32.4 kg/m2 32.4 kg/m2 [facility] (BMI) [Ratio] Medical Center Body temperature 36.199177 Kaylie 36.912777 [facility] Respiratory rate 20 /min 20 /min [facility] Oxygen 97 % 97 % [place] saturation in Medical Arterial blood Center by Pulse oximetry Heart rate 84 /min 84 /min [facility] Diastolic blood 91 mm[Hg] 91 mm[Hg] [facility] pressure Medical Center Systolic blood 137 mm[Hg] 137 mm[Hg] [facility] Body temperature 36.516479 Kaylie 36.419531 [facility] Respiratory rate 17 /min 17 /min [facility] Deprecated 98 % 98 % [place] Oxygen Medical saturation in Center Capillary blood by Oximetry Heart rate 90 /min 90 /min [facility] Systolic blood 68 mm[Hg] 68 mm[Hg] [facility] Diastolic blood 120 mm[Hg] 120 mm[Hg] [facility] pressure Medical Center Oxygen 98 % 98 % [place] saturation in Medical Arterial blood Center by Pulse oximetry Body temperature 36.367851 Kaylie 36.383017 [facility] Respiratory rate 18 /min 18 /min [facility] Deprecated 95 % 95 % [place] Oxygen Medical saturation in Center Capillary blood by Oximetry Heart rate 93 /min 93 /min [facility] Systolic blood 63 mm[Hg] 63 mm[Hg] [facility] pressure Medical Center Diastolic blood 123 mm[Hg] 123 mm[Hg] [facility] pressure Medical Center Oxygen 95 % 95 % [place] saturation in Medical Arterial blood Center by Pulse oximetry Body temperature 36.664382 Kaylie 36.301318 [facility] Respiratory rate 17 /min 17 /min [facility] Deprecated 99 % 99 % [place] Oxygen Medical saturation in Center Capillary blood by Oximetry Heart rate 78 /min 78 /min [facility] Systolic blood 78 mm[Hg] 78 mm[Hg] [facility] pressure Medical Center Diastolic blood 130 mm[Hg] 130 mm[Hg] [facility] pressure Medical Center Oxygen 99 % 99 % [place] saturation in Medical Arterial blood Center by Pulse oximetry Body mass index 35.8 kg/m2 35.8 kg/m2 [facility] (BMI) [Ratio] Medical Center Oxygen 98 % 98 % [place] saturation in Medical Arterial blood Center by Pulse oximetry Body weight 110.557974 kg 110.595752 kg [facility] Measured Medical Center Body temperature 37.149327 Kaylie 37.984979 [facility] Respiratory rate 18 /min 18 /min [facility] Deprecated 98 % 98 % [place] Oxygen Medical saturation in Center Capillary blood by Oximetry Heart rate 88 /min 88 /min [facility] Body height 175.449417 cm 175.299700 cm [facility] Systolic blood 84 mm[Hg] 84 mm[Hg] [facility] Diastolic blood 132 mm[Hg] 132 mm[Hg] [facility] Respiratory rate 18 /min 18 /min [facility] Deprecated 95 % 95 % [place] Oxygen Medical saturation in Center Capillary blood by Oximetry Heart rate 93 /min 93 /min [facility] Systolic blood 70 mm[Hg] 70 mm[Hg] [facility] Diastolic blood 121 mm[Hg] 121 mm[Hg] [facility] Body temperature 36.084670 Kaylie 36.956467 [facility] Respiratory rate 20 /min 20 /min [facility] Deprecated 94 % 94 % [place] Oxygen Medical saturation in Center Capillary blood by Oximetry Heart rate 96 /min 96 /min [facility] Systolic blood 66 mm[Hg] 66 mm[Hg] [facility] Diastolic blood 113 mm[Hg] 113 mm[Hg] [facility] Body weight 113.647415 kg 113.843750 kg [facility] Center Body temperature 37.866004 Kaylie 37.386452 [facility] Respiratory rate 17 /min 17 /min [facility] Deprecated 97 % 97 % [place] Oxygen Medical saturation in Center Capillary blood by Oximetry Heart rate 96 /min 96 /min [facility] Body height 177.155388 cm 177.009434 cm [facility] Systolic blood 71 mm[Hg] 71 mm[Hg] [facility] Diastolic blood 134 mm[Hg] 134 mm[Hg] [facility] Body mass index 35.8 kg/m2 35.8 kg/m2 [facility] (BMI) [Ratio] Medical Center Body temperature 37.506090 Kaylie 37.985809 [facility] Respiratory rate 18 /min 18 /min [facility] Deprecated 95 % 95 % [facility] Oxygen Medical saturation in Center Capillary blood by Oximetry Heart rate 92 /min 92 /min [facility] Systolic blood 64 mm[Hg] 64 mm[Hg] [facility] Diastolic blood 110 mm[Hg] 110 mm[Hg] [facility] Body temperature 37.546489 Kaylie 37.656440 [facility] Respiratory rate 17 /min 17 /min [facility] Deprecated 96 % 96 % [facility] Oxygen Medical saturation in Center Capillary blood by Oximetry Heart rate 62 /min 62 /min [facility] Systolic blood 84 mm[Hg] 84 mm[Hg] [facility] Diastolic blood 124 mm[Hg] 124 mm[Hg] [facility] Body temperature 37.592799 Kaylie 37.588272 [facility] Respiratory rate 18 /min 18 /min [facility] Deprecated 96 % 96 % [facility] Oxygen Medical saturation in Center Capillary blood by Oximetry Heart rate 58 /min 58 /min [facility] Systolic blood 54 mm[Hg] 54 mm[Hg] [facility] Diastolic blood 124 mm[Hg] 124 mm[Hg] [facility] Body temperature 36.326471 Kaylie 36.127739 [facility] Respiratory rate 18 /min 18 /min [facility] Deprecated 96 % 96 % [place] Oxygen Medical saturation in Center Capillary blood by Oximetry Heart rate 95 /min 95 /min [facility] Systolic blood 84 mm[Hg] 84 mm[Hg] [facility] Diastolic blood 155 mm[Hg] 155 mm[Hg] [facility] Body temperature 36.299157 Kaylie 36.612435 [facility] Respiratory rate 18 /min 18 /min [facility] Deprecated 98 % 98 % [place] Oxygen Medical saturation in Center Capillary blood by Oximetry Heart rate 91 /min 91 /min [facility] Systolic blood 66 mm[Hg] 66 mm[Hg] [facility] Diastolic blood 109 mm[Hg] 109 mm[Hg] [facility] Body temperature 36.060844 Kaylie 36.402176 [facility] Respiratory rate 17 /min 17 /min [facility] Deprecated 96 % 96 % [place] Oxygen Medical saturation in Center Capillary blood by Oximetry Heart rate 76 /min 76 /min [facility] Systolic blood 75 mm[Hg] 75 mm[Hg] [facility] Diastolic blood 95 mm[Hg] 95 mm[Hg] [facility] Body temperature 36.393586 Kaylie 36.047629 [facility] Respiratory rate 19 /min 19 /min [facility] Deprecated 98 % 98 % [place] Oxygen Medical saturation in Center Capillary blood by Oximetry Heart rate 98 /min 98 /min [facility] Systolic blood 97 mm[Hg] 97 mm[Hg] [facility] Diastolic blood 179 mm[Hg] 179 mm[Hg] [facility] Body temperature 36.988461 Kaylie 36.055323 [facility] Deprecated 95 % 95 % [place] Oxygen Medical saturation in Center Capillary blood by Oximetry Heart rate 76 /min 76 /min [facility] Systolic blood 68 mm[Hg] 68 mm[Hg] [facility] Diastolic blood 140 mm[Hg] 140 mm[Hg] [facility] Body temperature 36.577824 Kaylie 36.109121 [facility] Respiratory rate 20 /min 20 /min [facility] Deprecated 96 % 96 % [place] Oxygen Medical saturation in Center Capillary blood by Oximetry Heart rate 74 /min 74 /min [facility] Systolic blood 72 mm[Hg] 72 mm[Hg] [facility] Diastolic blood 138 mm[Hg] 138 mm[Hg] [facility] Body temperature 36.828913 Kaylie 36.633408 [facility] Respiratory rate 20 /min 20 /min [facility] Deprecated 95 % 95 % [place] Oxygen Medical saturation in Center Capillary blood by Oximetry Heart rate 79 /min 79 /min [facility] Systolic blood 70 mm[Hg] 70 mm[Hg] [facility] Diastolic blood 135 mm[Hg] 135 mm[Hg] [facility] Body weight 79.636790 kg [address].326[address] [facility] Body temperature 36.715924 Kaylie 36.885030 [facility] Respiratory rate 18 /min 18 /min [facility] Deprecated 100 % 100 % [facility] Oxygen Medical saturation in Center Capillary blood by Oximetry Heart rate 80 /min 80 /min [facility] Body height 172.199359 cm 172.712019 cm [facility] Systolic blood 80 mm[Hg] 80 mm[Hg] [facility] Diastolic blood 132 mm[Hg] 132 mm[Hg] [facility] Body mass index 26.6 kg/m2 26.6 kg/m2 [facility] (BMI) [Ratio] Medical Center Body temperature 36.655034 Kaylie 36.904895 [facility] Respiratory rate 18 /min 18 /min [facility] Deprecated 38 % 38 % [facility] Oxygen Medical saturation in Center Capillary blood by Oximetry Heart rate 72 /min 72 /min [facility] Systolic blood 78 mm[Hg] 78 mm[Hg] [facility] Diastolic blood 143 mm[Hg] 143 mm[Hg] [facility] Body temperature 36.965231 Kaylie 36.350146 [facility] Respiratory rate 18 /min 18 /min [facility] Deprecated 97 % 97 % [facility] Oxygen Medical saturation in Center Capillary blood by Oximetry Heart rate 88 /min 88 /min [facility] Systolic blood 88 mm[Hg] 88 mm[Hg] [facility] Diastolic blood 150 mm[Hg] 150 mm[Hg] [facility] Body temperature 35.450403 Kaylie 35.959329 [facility] Respiratory rate 18 /min 18 /min [facility] Deprecated 97 % 97 % [facility] Oxygen Medical saturation in Center Capillary blood by Oximetry Heart rate 79 /min 79 /min [facility] Systolic blood 74 mm[Hg] 74 mm[Hg] [facility] Diastolic blood 105 mm[Hg] 105 mm[Hg] [facility] Body temperature 36.243826 Kaylie 36.830235 [facility] Respiratory rate 19 /min 19 /min [facility] Deprecated 100 % 100 % [place] Oxygen Medical saturation in Center Capillary blood by Oximetry Heart rate 98 /min 98 /min [facility] Systolic blood 73 mm[Hg] 73 mm[Hg] [facility] Diastolic blood 126 mm[Hg] 126 mm[Hg] [facility] Body temperature 36.185075 Kaylie 36.424406 [facility] Respiratory rate 18 /min 18 /min [facility] Deprecated 98 % 98 % [facility] Oxygen Medical saturation in Center Capillary blood by Oximetry Heart rate 99 /min 99 /min [facility] Systolic blood 68 mm[Hg] 68 mm[Hg] [facility] Diastolic blood 106 mm[Hg] 106 mm[Hg] [facility] Body temperature 36.759941 Kaylie 36.882809 [facility] Respiratory rate 20 /min 20 /min [facility] Deprecated 97 % 97 % [place] Oxygen Medical saturation in Center Capillary blood by Oximetry Heart rate 87 /min 87 /min [facility] Systolic blood 77 mm[Hg] 77 mm[Hg] [facility] Diastolic blood 124 mm[Hg] 124 mm[Hg] [facility] Body temperature 36.620201 Kaylie 36.461094 [facility] Body temperature 36.124431 Kaylie 36.587215 [facility] Respiratory rate 20 /min 20 /min [facility] Respiratory rate 20 /min 20 /min [facility] Deprecated 96 % 96 % [place] Oxygen Medical saturation in Center Capillary blood by Oximetry Deprecated 96 % 96 % [place] Oxygen Medical saturation in Center Capillary blood by Oximetry Heart rate 93 /min 93 /min [facility] Heart rate 93 /min 93 /min [facility] Systolic blood 63 mm[Hg] 63 mm[Hg] [facility] [place] Diastolic blood 113 mm[Hg] 113 mm[Hg] [facility] Systolic blood 63 mm[Hg] 63 mm[Hg] [facility] Diastolic blood 113 mm[Hg] 113 mm[Hg] [facility] Body temperature 36.402012 Kaylie 36.129228 [facility] Respiratory rate 20 /min 20 /min [facility] Deprecated 94 % 94 % [facility] Oxygen Medical saturation in Center Capillary blood by Oximetry Heart rate 83 /min 83 /min [facility] Systolic blood 66 mm[Hg] 66 mm[Hg] [facility] Diastolic blood 135 mm[Hg] 135 mm[Hg] [facility] Body temperature 36.337366 Kaylie 36.156573 [facility] Respiratory rate 18 /min 18 /min [facility] Deprecated 98 % 98 % [facility] Oxygen Medical saturation in Center Capillary blood by Oximetry Heart rate 77 /min 77 /min [facility] Systolic blood 87 mm[Hg] 87 mm[Hg] [facility] Diastolic blood 130 mm[Hg] 130 mm[Hg] [facility] Body weight 115.948450 kg 115.211561 kg [facility] Body temperature 36.791388 Kaylie 36.051914 [facility] Respiratory rate 18 /min 18 /min [facility] Deprecated 98 % 98 % [facility] Oxygen Medical saturation in Center Capillary blood by Oximetry Heart rate 84 /min 84 /min [facility] Body height 180.049673 cm 180.207272 cm [facility] Systolic blood 88 mm[Hg] 88 mm[Hg] [facility] Diastolic blood 132 mm[Hg] 132 mm[Hg] [facility] Body mass index 35.3 kg/m2 35.3 kg/m2 [facility] (BMI) [Ratio] [facility] Diastolic blood 144 mm[Hg] 144 mm[Hg] [facility] Body temperature 36.142485 Kaylie 36.585868 [facility] Respiratory rate 16 /min 16 /min [facility] Deprecated 95 % 95 % [facility] Oxygen Medical saturation in Center Capillary blood by Oximetry Heart rate 85 /min 85 /min [facility] Systolic blood 97 mm[Hg] 97 mm[Hg] [facility] Body weight 125.218477 kg 125.698905 kg [facility] Body temperature 36.565774 Kaylie 36.867281 [facility] Respiratory rate 17 /min 17 /min [facility] Deprecated 98 % 98 % [facility] Oxygen Medical saturation in Center Capillary blood by Oximetry Heart rate 78 /min 78 /min [facility] Body height 175.975766 cm 175.937017 cm [facility] Systolic blood 96 mm[Hg] 96 mm[Hg] [facility] Diastolic blood 149 mm[Hg] 149 mm[Hg] [facility] Body mass index 40.6 kg/m2 40.6 kg/m2 [facility] (BMI) [Ratio] Medical Center Body weight 125.296367 kg 125.801400 kg [facility] Body temperature 36.200360 Kaylie 36.280577 [facility] Respiratory rate 17 /min 17 /min [facility] Deprecated 98 % 98 % [facility] Oxygen Medical saturation in Center Capillary blood by Oximetry Heart rate 80 /min 80 /min [facility] Body height 175.282229 cm 175.102135 cm [facility] Systolic blood 94 mm[Hg] 94 mm[Hg] [facility] Diastolic blood 154 mm[Hg] 154 mm[Hg] [facility] Body mass index 40.6 kg/m2 40.6 kg/m2 [facility] (BMI) [Ratio] Medical Center Body temperature 37.273824 Kaylie 37.412009 [facility] Respiratory rate 16 /min 16 /min [facility] Deprecated 94 % 94 % [facility] Oxygen Medical saturation in Center Capillary blood by Oximetry Heart rate 95 /min 95 /min [facility] Systolic blood 94 mm[Hg] 94 mm[Hg] [facility] Center Diastolic blood 147 mm[Hg] 147 mm[Hg] [facility] Body temperature 36.054177 Kaylie 36.957505 [facility] Respiratory rate 19 /min 19 /min [facility] Deprecated 97 % 97 % [facility] Oxygen Medical saturation in Center Capillary blood by Oximetry Heart rate 88 /min 88 /min [facility] Systolic blood 78 mm[Hg] 78 mm[Hg] [facility] Center Diastolic blood 138 mm[Hg] 138 mm[Hg] [facility] Body temperature 36.964551 Kaylie 36.563057 [facility] Deprecated 90 % 90 % [facility] Oxygen Medical saturation in Center Capillary blood by Oximetry Heart rate 98 /min 98 /min [facility] Systolic blood 65 mm[Hg] 65 mm[Hg] [facility] Diastolic blood 113 mm[Hg] 113 mm[Hg] [facility] Body weight 90.813383 kg 90.897739 kg [facility] Measured [facility] Center Body temperature 36.036425 Kaylie 36.127049 [facility] Respiratory rate 16 /min 16 /min [facility] Deprecated 99 % 99 % [facility] Oxygen Medical saturation in Center Capillary blood by Oximetry Heart rate 85 /min 85 /min [facility] Body height 172.024747 cm 172.241052 cm [facility] Systolic blood 73 mm[Hg] 73 mm[Hg] [facility] Diastolic blood 150 mm[Hg] 150 mm[Hg] [facility] Body mass index 30.4 kg/m2 30.4 kg/m2 [facility] (BMI) [Ratio] Medical Center Deprecated 96 % 96 % [facility] Oxygen Medical saturation in Center Capillary blood by Oximetry Body temperature 36.067952 Kaylie 36.277711 [facility] Respiratory rate 20 /min 20 /min [facility] Heart rate 92 /min 92 /min [facility] Systolic blood 72 mm[Hg] 72 mm[Hg] [facility] Diastolic blood 131 mm[Hg] 131 mm[Hg] [facility] Body temperature 38.622905 Kaylie 38.153287 [facility] Respiratory rate 20 /min 20 /min [facility] Heart rate 93 /min 93 /min [facility] Systolic blood 100 mm[Hg] 100 mm[Hg] [facility] Diastolic blood 166 mm[Hg] 166 mm[Hg] [facility] Deprecated 95 % 95 % [facility] Oxygen Medical saturation in Center Capillary blood by Oximetry Body temperature 36.675467 Kaylie 36.373463 [facility] Respiratory rate 20 /min 20 /min [facility] Heart rate 103 /min 103 /min [facility] Systolic blood 80 mm[Hg] 80 mm[Hg] [facility] Diastolic blood 145 mm[Hg] 145 mm[Hg] [facility] Body temperature 38.860787 Kaylie 38.929049 [facility] Respiratory rate 20 /min 20 /min [facility] Heart rate 97 /min 97 /min [facility] Systolic blood 89 mm[Hg] 89 mm[Hg] [facility] Diastolic blood 143 mm[Hg] 143 mm[Hg] [facility] Body temperature 37.713112 Kaylie 37.662151 [facility] Respiratory rate 20 /min 20 /min [facility] Heart rate 94 /min 94 /min [facility] Systolic blood 79 mm[Hg] 79 mm[Hg] [facility] Diastolic blood 143 mm[Hg] 143 mm[Hg] [facility] Deprecated 90 % 90 % [facility] Oxygen Medical saturation in Center Capillary blood by Oximetry Deprecated 94 % 94 % [facility] Oxygen Medical saturation in Center Capillary blood by Oximetry Body temperature 38.803009 Kaylie 38.629388 [facility] Respiratory rate 18 /min 18 /min [facility] Deprecated 92 % 92 % [facility] Oxygen Medical saturation in Center Capillary blood by Oximetry Systolic blood 98 mm[Hg] 98 mm[Hg] [facility] Diastolic blood 182 mm[Hg] 182 mm[Hg] [facility] Body temperature 38.496998 Kaylie 38.782583 [facility] Respiratory rate 17 /min 17 /min [facility] Deprecated 96 % 96 % [facility] Oxygen Medical saturation in Center Capillary blood by Oximetry Heart rate 107 /min 107 /min [facility] Systolic blood 97 mm[Hg] 97 mm[Hg] [facility] Diastolic blood 175 mm[Hg] 175 mm[Hg] [facility] Body temperature 37.445174 Kaylie 37.755239 [facility] Respiratory rate 20 /min 20 /min [facility] Deprecated 92 % 92 % [facility] Oxygen Medical saturation in Center Capillary blood by Oximetry Heart rate 100 /min 100 /min [facility] Systolic blood 91 mm[Hg] 91 mm[Hg] [facility] Diastolic blood 155 mm[Hg] 155 mm[Hg] [facility] Body temperature [id number] Kaylie [id number] Kaylie [facility] Respiratory rate 20 /min 20 /min [facility] Heart rate 98 /min 98 /min [facility] Systolic blood 84 mm[Hg] 84 mm[Hg] [facility] Diastolic blood 147 mm[Hg] 147 mm[Hg] [facility] Body temperature 37.925236 Kaylie 37.636085 Kaylie [facility] Respiratory rate 18 /min 18 /min [facility] Deprecated 93 % 93 % [facility] Oxygen Medical saturation in Center Capillary blood by Oximetry Heart rate 101 /min 101 /min [facility] Systolic blood 74 mm[Hg] 74 mm[Hg] [facility] Diastolic blood 129 mm[Hg] 129 mm[Hg] [facility] Deprecated 89 % 89 % [facility] Oxygen Medical saturation in Center Capillary blood by Oximetry Heart rate 104 /min 104 /min [facility] ID Date Data Source [id number] 02/27/2020 10:28:08 PM EDT [facility] Name Value Range Interpretation Code Description Data Source(s) Body weight Measured 233 lb 233 lb [facility] Patient Treatment Plan of Care Planned Activity Planned Date Details Description Data Source (s) No immunizations [facility] Medical administered. Center 0.9% NaCl IV 08/16/2019 [facility]ty 05:17:42 PM EST [employer] 0.9% NaCl IV 08/16/2019 [facility] 05:17:42 PM [facility] [employer] [facility] No Known Medications 09/01/2018 [facility] 04:54:52 PM EDT [facility] Potassium gluconate 2.5 [facility] MEQ Oral Tablet Center potassium chloride 20 mEq [facility] tablet,ER Center particles/crystals, Ordered By: LYNN Yañezirections: 1 tablet oral daily potassium chloride 20 mEq [facility] tablet,ER Center particles/crystals, Ordered By: LYNN Yañezirections: 1 tablet oral daily Amoxicillin 875 MG / [facility] Clavulanate 125 MG Oral Cent er Tablet Ibuprofen 400 MG Oral [facility] Center Center lidocaine 5 % adhesive [facility] patch,medicated, Ordered Melissa ter By: LYNN Yañezirections: 1 patch transdermal daily Acetaminophen 325 MG / [facility] Oxycodone Hydrochloride 5 Ce nter MG Oral Tablet Medication reconciliation [facility] has not been performed. Cent er gabapentin 400 mg [facility] CapsuleDirections: 1 Center capsule oral three times a day bacitracin zinc 0.5 [facility] UNT/MG Topical Ointment Cent er Levofloxacin 750 MG Oral [facility] Tablet [place] Mirtazapine 15 MG Oral [facility] Tablet [Remeron] Center Magnesium Oxide 400 MG [facility] Oral Tablet Center Docusate Sodium 100 MG [facility] Oral Capsule Center ferrous sulfate 325 MG [facility] Delayed Release Oral Center Tablet Amlodipine 10 MG Oral [facility] Tablet [Norvasc] [place] Acetaminophen 325 MG Oral [facility] Tablet [place]
== END 2020-03-04 18:19 | disposition home or self-care (01) ==
LOC: JER 15:52
DX: M54.9 Dorsalgia, unspecified (principal)
CPT/HCPCS: 99283-25

== ENCOUNTER 2020-03-05 00:54 | Emergency (ER) | payer OTHER ==
[2020-03-05 01:43] VITALS: TEMP 98.2; BMI 30.1
[2020-03-05] MEDS ORDERED: LIDOCAINE 5% TOPICAL PATCH TP ONE (07:27)
[2020-03-05] MEDS ORDERED: ACETAMINOPHEN 500 MG TABLET (FP) PO ONE (07:32)
--- NOTE | 2020-03-05 07:46 | PDOC ---
History of Present Illness - General Chief Complaint: Alcohol intoxication Stated Complaint: DIFFICULTY WLKING Time Seen by Provider: 03/05/20 07:12 History Source: Patient - History of Present Illness Initial Comments: 03/05/20 07:39 65M with PMH of mesothelioma, chronic back pain, alocholism presents with back pain, which has been ongoing for years and patient frequents the ED. He currently denies cp, sob, n/v/d, abd pain, numbness/tingling. PMH: as in HPI SH: see below Allergies: NKDA ROS GENERAL/CONSTITUTIONAL: No fever or chills. No weakness. HEENT: No change in vision. No ear pain or discharge. No sore throat. CARDIOVASCULAR: No chest pain or shortness of breath RESPIRATORY: No cough, wheezing, or hemoptysis. GASTROINTESTINAL: No nausea, vomiting, diarrhea or constipation. GENITOURINARY: No dysuria, frequency, or change in urination. MUSCULOSKELETAL: No joint or muscle swelling or pain. No neck or back pain. SKIN: No rash NEUROLOGIC: No headache, vertigo, loss of consciousness, or change in strength/sensation. ENDOCRINE: No increased thirst. No abnormal weight change HEMATOLOGIC/LYMPHATIC: No anemia, easy bleeding, or history of blood clots. ALLERGIC/IMMUNOLOGIC: No hives or skin allergy. PE GENERAL: Awake, alert, and fully oriented; no acute distress HEAD: No signs of trauma, normocephalic, atraumatic EYES: PERRLA, EOMI, sclera anicteric, conjunctiva clear ENT: Auricles normal inspection, hearing grossly normal, nares patent, moist mucosa, oropharynx clear without exudates. NECK: Normal ROM, supple, no LAD, JVD, or masses HEART: Regular rate and rhythm, normal S1/S2, no murmurs, rubs or gallops, peripheral pulses normal and equal bilaterally. LUNGS: No distress, speaks full sentences, clear to auscultation bilaterally ABDOMEN: Soft, nontender. No guarding, no rebound. No masses EXTREMITIES: Normal inspection, Normal range of motion, no edema. No clubbing or cyanosis. NEUROLOGICAL: CNII-XII grossly intact. Normal speech, no focal sensorimotor deficits. BACK: pt refused ambulating due to back pain SKIN: Warm, Dry, normal turgor, no rashes or lesions noted Stanislaw Mcfarland, PGY1 Emergency Medicine Past History - Medical History Allergies/Adverse Reactions: Allergies Allergy/AdvReac Type Severity Reaction Status Date / Time Fish Containing Products Allergy Mild Swelling Verified 03/03/20 03:27 No Known Drug Allergies Allergy Verified 03/03/20 03:27 Home Medications: Ambulatory Orders NK [No Known Home Medication] 03/05/20 Anemia: No Asthma: No Cancer: Yes (mesothelioma lung cancer) Cardiac Disorders: No CVA: No COPD: No CHF: No DVT: No Dementia: No Diabetes: No Dialysis: No GI Disorders: No Disorders: No HTN: Yes (non compliant with meds.) Hypercholesterolemia: Yes Kidney Stones: No Liver Disease: Yes (ETOH abuse) Psychiatric Problems: Yes (ETOH abuse) Seizures: No Thyroid Disease: No Lung CA: Yes (Mesothelioma) - Surgical History Abdominal Surgery: No Appendectomy: No Cardiac Surgery: No Cholecystectomy: No Lung Surgery: No Neurologic Surgery: No Orthopedic Surgery: No - Reproductive History Testicular Surgery: No - Immunization History Td Vaccination: Yes TDAP Vaccination: Yes Immunization Up to Date: Yes - Psycho-Social/Smoking History Smoking Status: No Smoking History: Never smoked Have you smoked in the past 12 months: No Number of Cigarettes Smoked Daily: 0 If you are a former smoker, when did you quit?: 0 Cigars Per Day: 0 Information on smoking cessation initiated: No 'Breaking Loose' booklet given: 09/22/17 - Substance Abuse Hx (Audit-C & DAST Scrn) How often the patient has a drink containing alcohol: 4 0r more times/wk Number of drinks the patient has on a typical day: 10 or more How often the patient has six or more drinks on one occasion: Daily or almost daily Score: In Men: 4 or > Positive; In Women: 3 or > Positive: 12 Screen Result (Pos requires Nsg. Audit-10AR): Positive In the last yr the pt used illegal drug/Rx for NonMed reason: No Score: Yes response is considered Positive: 0 Screen Result (Positive result requires Nsg. DAST-10): Negative *Physical Exam - Vital Signs Last Vital Signs Temp Pulse Resp BP Pulse Ox 98.2 F 99 H 20 140/80 95 03/05/20 00:54 03/05/20 00:54 03/05/20 00:54 03/05/20 00:54 03/05/20 00:54 Medical Decision Making - Medical Decision Making 03/05/20 07:46 65M with PMH of mesothelioma, chronic back pain, alocholism presents with back pain, which has been ongoing for years and patient frequents the ED. He currently denies cp, sob, n/v/d, abd pain, numbness/tingling. Physical exam notable only for low back tenderness, but pt refused to ambulate 2/2 back pain. Given lidocaine patch, tylenol, and robaxan. He was able to ambulate. Pt eloped. Discharge - Discharge Information Problems reviewed: Yes Clinical Impression/Diagnosis: Alcohol dependence with uncomplicated withdrawal, Eloped from emergency department Disposition: ELOPED - Admission No - Follow up/Referral Referrals: Lily Cornejo [Primary Care Provider] - - Patient Discharge Instructions - Post Discharge Activity
[2020-03-05] MEDS ORDERED: LIDOCAINE 5% TOPICAL PATCH ONE (08:10)
[2020-03-05] MEDS ORDERED: ACETAMINOPHEN 325 MG TABLET (FP) ONE (08:27)
[2020-03-05 08:39] VITALS: BP 111/71; PULSE 98
[2020-03-05] MEDS ORDERED: METHOCARBAMOL 500 MG TABLET PO ONE (08:45)
--- NOTE | 2020-03-05 09:24 | PDOC ---
Attending Attestation - Resident Resident Name: Stanislaw Mcfarland - ED Attending Attestation I have performed the following: I have examined & evaluated the patient, The case was reviewed & discussed with the resident, I agree w/resident's findings & plan, Exceptions are as noted - HPI HPI: 03/05/20 11:42 65 years old well-known to ED staff presents to ED with chronic lower back pain. Multiple imaging in the past. Pain is moderate persistent constant no exacerbating or relieving factors. - Physicial Exam PE: 03/05/20 11:51 Vitals: Triage Vital signs reviewed General Appearance: No acute distress, well nourished well developed, Head: Atraumatic, Cardiac: Regular rate and rhythym, no murmurs, no rubs, no gallops, Lungs: Clear to auscultation bilateral, good air movement bilaterally, Abdomen: Soft, non distended, normal bowel sounds, non tender to palpation Extremities: Full range of motion to all extremities, no cyanosis, clubbing, or edema Skin: Warm and dry, no rashes or lesions, no rash, no petechiae Neuro: AOX3; cranial Nerves 2-12 grossly intact, strength intact to all extremities, sensation intact to all extremities, gait normal Psych: Normal mood, normal affect - Medical Decision Making 03/05/20 11:52 Patient given Robaxin for back pain. Allowed to rest. Now able to transfer out of stretcher able to ambulate nonfocal neurologic examination Findings, need for follow-up and strict return instructions discussed with patient. Discharge - Discharge Information Problems reviewed: Yes Clinical Impression/Diagnosis: Alcohol dependence with uncomplicated withdrawal, Eloped from emergency department Condition: Unchanged/Unknown Disposition: ELOPED - Follow up/Referral Referrals: Lily Cornejo [Primary Care Provider] - - Patient Discharge Instructions - Post Discharge Activity
[2020-03-05] MEDS ORDERED: METHOCARBAMOL 500 MG TABLET ONE (09:56)
[2020-03-05] MEDS ORDERED: LIDOCAINE PATCH REMOVAL MC SCH (22:00)
== END 2020-03-05 11:00 | disposition left against medical advice (07) ==
LOC: JER 00:54
DX: F10.239 Alcohol dependence with withdrawal, unspecified (principal)
CPT/HCPCS: 99283-25

== ENCOUNTER 2020-03-07 15:03 | Emergency (ER) | payer OTHER ==
[2020-03-07] MEDS ORDERED: ASPIRIN 81 MG CHEWABLE TABLETS PO ONE (15:14)
--- NOTE | 2020-03-07 15:14 | PDOC ---
Rapid Medical Evaluation Chief Complaint: Alcohol intoxication Time Seen by Provider: 03/07/20 15:12 Medical Evaluation: Allergies Allergy/AdvReac Type Severity Reaction Status Date / Time Fish Containing Products Allergy Mild Swelling Verified 03/06/20 16:47 No Known Drug Allergies Allergy Verified 03/06/20 16:47 03/07/20 15:13 HPI: Bilateral knee and LBP PE: No gross deficits appears intoxicated and desheveled ORDERS: Labs banana bag Discharge Disposition - Diagnosis Sacral back pain - Discharge Dispostion Condition at time of disposition: Stable - Referrals - Patient Instructions - Post Discharge Activity
[2020-03-07 15:15] VITALS: BP 101/63; PULSE 106; TEMP 97.6; BMI 40.3
[2020-03-07] MEDS ORDERED: FOLIC ACID INJECTION - 1 MG, THIAMINE HCL 100 MG, MULTIVIT INJECTION ADULT 10 ML in SOD... IVPB ONE (15:15)
[2020-03-07] MEDS ORDERED: ASPIRIN 81 MG CHEWABLE TABLETS ONE (15:49)
[2020-03-07 16:33] LABS: BASO % 1.1 % (0-2.0); EOS % 3.4 % (0-4.5); HEMATOCRIT 31.8 % (35.4-49); HEMOGLOBIN 10.1 GM/dL (11.7-16.9); MCHC 31.7 g/dl (32.0-35.9); MEAN PLT VOLUME 7.4 fl (7.5-11.1); MONO % 6.2 % (3.8-10.2); NEUT % 55.3 % (42.8-82.8); PLATELET COUNT 346 K/MM3 (134-434); RBC 3.87 M/mm3 (4.00-5.60); RDW 19.6 % (11.9-15.9); WHITE BLOOD COUNT 5.4 K/mm3 (4.0-10.0)
[2020-03-07 16:41] LABS: INR 1.07 (0.83-1.09); PROTHROMBIN TIME (PATIENT) 12.6 SEC (9.7-13.0)
[2020-03-07] MEDS ORDERED: LIDOCAINE 5% TOPICAL PATCH TP ONE (16:42)
[2020-03-07 16:44] LABS: ACTIVATED PTT 28.9 SECONDS (25.2-36.5)
--- NOTE | 2020-03-07 16:51 | PDOC ---
History of Present Illness - General Chief Complaint: Alcohol intoxication Stated Complaint: INTOX Time Seen by Provider: 03/07/20 15:12 - History of Present Illness Initial Comments: 03/07/20 21:09 65yo M w/ PMHx of EtOH and near-daily presentation to this ED while intoxicated presents w/ back pain. This is the same pain with which he has presented multiple times before. On questioning, he presents requesting a lidocaine patch and food. Denies fevers, vomiting, diarrhea, saddle anesthesia, bowel/bladder incontinence, weakness or paralysis of the LEs. Past History - Medical History Allergies/Adverse Reactions: Allergies Allergy/AdvReac Type Severity Reaction Status Date / Time Fish Containing Products Allergy Mild Swelling Verified 03/06/20 16:47 No Known Drug Allergies Allergy Verified 03/06/20 16:47 Home Medications: Ambulatory Orders NK [No Known Home Medication] 03/05/20 Anemia: No Asthma: No Cancer: Yes (mesothelioma lung cancer) Cardiac Disorders: No CVA: No COPD: No CHF: No DVT: No Dementia: No Diabetes: No Dialysis: No GI Disorders: No Disorders: No HTN: Yes (non compliant with meds.) Hypercholesterolemia: Yes Kidney Stones: No Liver Disease: Yes (ETOH abuse) Psychiatric Problems: Yes (ETOH abuse) Seizures: No Thyroid Disease: No Lung CA: Yes (Mesothelioma) - Surgical History Abdominal Surgery: No Appendectomy: No Cardiac Surgery: No Cholecystectomy: No Lung Surgery: No Neurologic Surgery: No Orthopedic Surgery: No - Reproductive History Testicular Surgery: No - Immunization History Td Vaccination: Yes TDAP Vaccination: Yes Immunization Up to Date: Yes - Psycho-Social/Smoking History Smoking Status: No Smoking History: Unknown if ever smoked Have you smoked in the past 12 months: No Number of Cigarettes Smoked Daily: 0 If you are a former smoker, when did you quit?: 0 Cigars Per Day: 0 Information on smoking cessation initiated: No 'Breaking Loose' booklet given: 09/22/17 - Substance Abuse Hx (Audit-C & DAST Scrn) How often the patient has a drink containing alcohol: 4 0r more times/wk Number of drinks the patient has on a typical day: 10 or more How often the patient has six or more drinks on one occasion: Daily or almost daily Score: In Men: 4 or > Positive; In Women: 3 or > Positive: 12 Screen Result (Pos requires Nsg. Audit-10AR): Positive In the last yr the pt used illegal drug/Rx for NonMed reason: No Score: Yes response is considered Positive: 0 Screen Result (Positive result requires Nsg. DAST-10): Negative Review of Systems - Review of Systems Able to Perform ROS?: Yes Is the patient limited Guyanese proficient: No Constitutional: No: Chills, Diaphoresis, Fever, Weakness HEENTM: No: Tinnitus, Throat Swelling Respiratory: No: Cough, SOB with Exertion, SOB at Rest Cardiac (ROS): No: See HPI, Chest Pain, Edema ABD/GI: No: Symptoms Reported, Constipated, Diarrhea, Nausea, Vomiting, Abdominal cramping, Tarry Stools : No: Burning, Dysuria, Discharge, Frequency Musculoskeletal: Yes: Back Pain Integumentary: No: Change in Color Neurological: No: Headache, Numbness, Paresthesia, Seizure Endocrine: No: Symptoms Reported Hematologic/Lymphatic: No: Symptoms Reported All Other Systems: Reviewed and Negative *Physical Exam - Vital Signs Last Vital Signs Temp Pulse Resp BP Pulse Ox 97.6 F 106 H 16 101/63 93 L 03/07/20 15:11 03/07/20 15:11 03/07/20 15:11 03/07/20 15:11 03/07/20 15:11 - Physical Exam General Appearance: Yes: Nourished, Disheveled, Alcohol on Breath, Intoxicated HEENT: positive: EOMI, Normal Voice Neck: positive: Trachea midline, Supple. negative: Rigidity, Tender lateral, Tender midline Respiratory/Chest: positive: Wheezing. negative: Chest Tender, Lungs Clear, Respiratory Distress Cardiovascular: positive: Regular Rhythm, Tachycardia Gastrointestinal/Abdominal: positive: Normal Bowel Sounds, Soft, Protuberent Musculoskeletal: positive: Normal Inspection. negative: CVA Tenderness Extremity: positive: Normal Capillary Refill, Normal Inspection, Normal Range of Motion Integumentary: positive: Normal Color, Dry, Warm Neurologic: positive: Alert, Motor Strength 5/5 ED Treatment Course - LABORATORY CBC & Chemistry Diagram: 03/07/20 16:00 03/07/20 16:00 - ADDITIONAL ORDERS Additional order review: Laboratory Results 03/07/20 16:00 PT with INR 12.60 INR 1.07 03/07/20 16:00 RBC 3.87 L MCV 82.0 MCHC 31.7 L RDW 19.6 H MPV 7.4 L Neutrophils % 55.3 D Lymphocytes % 34.0 D Monocytes % 6.2 Eosinophils % 3.4 D Basophils % 1.1 Medical Decision Making - Medical Decision Making 03/08/20 12:05 patient was clinically sober - alert awake and oriented. Was able to tolerate PO and ambulate without difficulty. WIll DC. Discharge - Discharge Information Problems reviewed: Yes Clinical Impression/Diagnosis: Sacral back pain Condition: Stable Disposition: HOME - Follow up/Referral - Patient Discharge Instructions - Post Discharge Activity
[2020-03-07 17:11] LABS: BLOOD UREA NITROGEN 5.9 mg/dL (7-18); GLUCOSE,RANDOM 92 mg/dL (74-106)
[2020-03-07 17:12] LABS: ALBUMIN 3.2 g/dl (3.4-5.0); ALK PHOS 127 U/L (45-117); ANION GAP 10 MMOL/L (8-16); BILIRUBIN,TOTAL 0.2 mg/dL (0.2-1); CALCIUM 8.3 mg/dL (8.5-10.1); CHLORIDE 108 mmol/L (98-107); CO2 26 mmol/L (21-32); CREATININE 0.6 mg/dL (0.55-1.3); MAGNESIUM 1.4 mg/dL (1.8-2.4); POTASSIUM 3.4 mmol/L (3.5-5.1); SGOT/AST 33 U/L (15-37); SGPT/ALT 26 U/L (13-61); SODIUM 143 mmol/L (136-145); TOT PROT 6.6 g/dl (6.4-8.2)
[2020-03-07] MEDS ORDERED: LIDOCAINE 5% TOPICAL PATCH ONE (17:15)
--- NOTE | 2020-03-07 17:28 | PDOC ---
Documentation entered by Danilo Weston SCRIBE, acting as scribe for Jamal Rodriges MD. Jamal Rodriges MD: This documentation has been prepared by the kelli, Danilo Weston SCRIBE, under my direction and personally reviewed by me in its entirety. I confirm that the documentation accurately reflects all work, treatment, procedures, and medical decision making performed by me. Attending Attestation - Resident Resident Name: Smith Portillo - ED Attending Attestation I have performed the following: I have examined & evaluated the patient, The case was reviewed & discussed with the resident, I agree w/resident's findings & plan, Exceptions are as noted - HPI HPI: 03/07/20 16:36 The patient is a 65 year old male, well-known to ED, with a significant past medical history of mesothelioma and chronic lower back pain who presents to the emergency department for evaluation of neck and back pain that has been ongoing and causing frequent trips to the ED. The patient denies chest/abdominal pain, cough, and shortness of breath. Denies fever, chills, nausea, vomiting, and/or any GI symptoms. Denies any symptoms. Denies any other symptoms. Allergies: fish containing products, NKDA Social Hx: The patient reports alcohol abuse. - Physicial Exam PE: 03/07/20 16:29 See resident exam - Medical Decision Making 03/07/20 17:28 65 M with ETOH intoxication, complaining of chronic back pain. Discharge - Discharge Information Clinical Impression/Diagnosis: Sacral back pain Condition: Stable - Follow up/Referral - Patient Discharge Instructions - Post Discharge Activity
[2020-03-07] MEDS ORDERED: LIDOCAINE PATCH REMOVAL MC SCH (22:00)
== END 2020-03-07 19:55 | disposition home or self-care (01) ==
LOC: JER 15:03
DX: M54.5 Low back pain (principal)
CPT/HCPCS: 36415; 80053; 82550; 83735; 84484; 85025; 85610; 85730; 99285-25

== ENCOUNTER 2020-03-08 13:41 | Emergency (ER) | payer OTHER ==
[2020-03-08 14:20] VITALS: BP 138/89; PULSE 81; TEMP 98.3; BMI 30.8
[2020-03-08] MEDS ORDERED: LIDOCAINE 5% TOPICAL PATCH TP ONE (16:02)
[2020-03-08 17:30] LABS: BASO % 1.5 % (0-2.0); EOS % 3.7 % (0-4.5); HEMATOCRIT 33.5 % (35.4-49); HEMOGLOBIN 10.6 GM/dL (11.7-16.9); MCHC 31.8 g/dl (32.0-35.9); MEAN CELL VOLUME 81.9 fl (80-96); MEAN PLT VOLUME 7.3 fl (7.5-11.1); MONO % 6.2 % (3.8-10.2); NEUT % 44.6 % (42.8-82.8); PLATELET COUNT 301 K/MM3 (134-434); RBC 4.09 M/mm3 (4.00-5.60); RDW 19.5 % (11.9-15.9); WHITE BLOOD COUNT 5.5 K/mm3 (4.0-10.0)
[2020-03-08 18:08] LABS: ALBUMIN 3.3 g/dl (3.4-5.0); BILIRUBIN,TOTAL 0.4 mg/dL (0.2-1); BLOOD UREA NITROGEN 5.4 mg/dL (7-18); CALCIUM 8.5 mg/dL (8.5-10.1); CREATININE 0.6 mg/dL (0.55-1.3); POTASSIUM 3.2 mmol/L (3.5-5.1); TOT PROT 6.9 g/dl (6.4-8.2)
--- NOTE | 2020-03-08 21:41 | PDOC ---
History of Present Illness - General Chief Complaint: Back Pain Stated Complaint: INTOX Time Seen by Provider: 03/08/20 15:29 History Source: Patient Exam Limitations: No Limitations - History of Present Illness Initial Comments: 03/08/20 21:37 (seen by me at approx 330pm) 65 yo male well-known to the ED brought in by ambulance, h/o mesothelioma, chronic alcohol abuse, complaining of low back pain. Patient denies trauma, states my last drink was this morning. reports feeling unsteady. Denies headache, neck pain, chest pain, shortness of breath, fever, chills, abdominal pain or urinary symptoms. Patient states "I want to be admitted ". ROS: as above PE: GENERAL: disheveled EYES: Pupils equal, round and reactive to light, sclera anicteric, conjunctiva clear ENT: pharynx: no erythema, no exudate, uvula midline NECK: supple CHEST: nontender RESP: clear, no w/r/r CARDIO: rrr, no m/g/r ABD: +BS, soft, nontender, non distended BACK: no midline spinal ttp, no CVAT EXTREMITIES: Normal range of motion, b/l LE + 2 pitting edema NEUROLOGICAL: Normal speech, normal gait SKIN: Warm, Dry 03/08/20 22:56 Is this a multiple visit Asthma Patient?: No Past History - Medical History Allergies/Adverse Reactions: Allergies Allergy/AdvReac Type Severity Reaction Status Date / Time Fish Containing Products Allergy Mild Swelling Verified 03/08/20 14:20 No Known Drug Allergies Allergy Verified 03/08/20 14:20 Home Medications: Ambulatory Orders NK [No Known Home Medication] 03/05/20 Anemia: No Asthma: No Cancer: Yes (mesothelioma lung cancer) Cardiac Disorders: No CVA: No COPD: No CHF: No DVT: No Dementia: No Diabetes: No Dialysis: No GI Disorders: No Disorders: No HTN: Yes (non compliant with meds.) Hypercholesterolemia: Yes Kidney Stones: No Liver Disease: Yes (ETOH abuse) Psychiatric Problems: Yes (ETOH abuse) Seizures: No Thyroid Disease: No Lung CA: Yes (Mesothelioma) - Surgical History Abdominal Surgery: No Appendectomy: No Cardiac Surgery: No Cholecystectomy: No Lung Surgery: No Neurologic Surgery: No Orthopedic Surgery: No - Reproductive History Testicular Surgery: No - Immunization History Td Vaccination: Yes TDAP Vaccination: Yes Immunization Up to Date: Yes - Psycho-Social/Smoking History Smoking Status: No Smoking History: Unknown if ever smoked Have you smoked in the past 12 months: No Number of Cigarettes Smoked Daily: 0 If you are a former smoker, when did you quit?: 0 Cigars Per Day: 0 Information on smoking cessation initiated: No 'Breaking Loose' booklet given: 09/22/17 - Substance Abuse Hx (Audit-C & DAST Scrn) How often the patient has a drink containing alcohol: 4 0r more times/wk Number of drinks the patient has on a typical day: 5 or 6 How often the patient has six or more drinks on one occasion: Daily or almost daily Score: In Men: 4 or > Positive; In Women: 3 or > Positive: 10 Screen Result (Pos requires Nsg. Audit-10AR): Positive In the last yr the pt used illegal drug/Rx for NonMed reason: No Score: Yes response is considered Positive: 0 Screen Result (Positive result requires Nsg. DAST-10): Negative *Physical Exam - Vital Signs Last Vital Signs Temp Pulse Resp BP Pulse Ox 98.3 F 81 20 138/89 98 03/08/20 14:18 03/08/20 14:18 03/08/20 14:18 03/08/20 14:18 03/08/20 14:18 ED Treatment Course - LABORATORY CBC & Chemistry Diagram: 03/08/20 17:12 03/08/20 17:12 - ADDITIONAL ORDERS Additional order review: Laboratory Results 03/08/20 17:12 Sodium 146 H Potassium 3.2 L Chloride 107 Carbon Dioxide 28 Anion Gap 11 BUN 5.4 L Creatinine 0.6 Est GFR (CKD-EPI)AfAm 122.29 Est GFR (CKD-EPI)NonAf 105.51 Random Glucose 103 Calcium 8.5 Total Bilirubin 0.4 AST 30 ALT 26 Alkaline Phosphatase 134 H Total Protein 6.9 Albumin 3.3 L 03/08/20 17:12 RBC 4.09 MCV 81.9 MCHC 31.8 L RDW 19.5 H MPV 7.3 L Neutrophils % 44.6 Lymphocytes % 44.0 H D Monocytes % 6.2 Eosinophils % 3.7 Basophils % 1.5 - RADIOLOGY Radiology Studies Ordered: Category Date Time Status CHEST PA & LAT [RAD] Stat Radiology 03/08/20 16:01 Ordered - Medications Given in the ED: ED Medications Discontinued Medications Generic Name Dose Route Start Last Admin Trade Name Francisco Javier PRN Reason Stop Dose Admin Lidocaine 1 patch 03/08/20 16:02 03/08/20 17:30 Lidoderm Patch - TP 03/08/20 16:03 1 patch ONCE ONE Administration Medical Decision Making - Medical Decision Making 03/08/20 21:40 (seen by me at approx 330pm) 65 yo male well-known to the ED brought in by ambulance, h/o mesothelioma, chronic alcohol abuse, complaining of low back pain. Patient denies trauma, states my last drink was this morning. reports feeling unsteady. Denies headache, neck pain, chest pain, shortness of breath, fever, chills, abdominal pain or urinary symptoms. Patient states "I want to be admitted ". Reviewed labs Patient sleeping comfortably in the ED Ordered chest x-ray and EKG which patient refused Offered admission at approximately 7 PM which patient refused 03/08/20 22:55 Patient ambulated to the bathroom approximately 2 hours ago Naprosyn 500 mg given for low back pain Patient sleeping comfortably Stable for discharge 03/08/20 22:56 Discharge - Discharge Information Problems reviewed: Yes Clinical Impression/Diagnosis: Low back pain Qualifiers: Chronicity: chronic Back pain laterality: unspecified Sciatica presence: without sciatica Qualified Code(s): M54.5 - Low back pain; G89.29 - Other chronic pain Condition: Stable Disposition: HOME - Admission No - Follow up/Referral Referrals: [facility] [place] Group] - Patient Discharge Instructions - Post Discharge Activity
[2020-03-08] MEDS ORDERED: NAPROXEN 500 MG TABLET PO ONE (21:59)
[2020-03-08] MEDS ORDERED: LIDOCAINE PATCH REMOVAL MC SCH (22:00)
== END 2020-03-08 23:59 | disposition home or self-care (01) ==
LOC: JER 13:41
DX: M54.5 Low back pain (principal); G89.29 Other chronic pain
CPT/HCPCS: 36415; 80053; 85025; 99283-25

== ENCOUNTER 2020-03-09 19:16 | Emergency (ER) | payer OTHER ==
[2020-03-09 19:22] VITALS: TEMP 97; BMI 33.0
[2020-03-10] MEDS ORDERED: LIDOCAINE 5% TOPICAL PATCH TP ONE (02:10)
[2020-03-10] MEDS ORDERED: METHOCARBAMOL 500 MG TABLET PO ONE ×2 (02:10→06:44)
[2020-03-10] MEDS ORDERED: METHOCARBAMOL 500 MG TABLET ONE ×2 (02:17→06:34)
[2020-03-10] MEDS ORDERED: LIDOCAINE 5% TOPICAL PATCH ONE (02:18)
--- NOTE | 2020-03-10 02:25 | PDOC ---
History of Present Illness - General Chief Complaint: Alcohol intoxication Stated Complaint: INTOXICATED Time Seen by Provider: 03/10/20 02:10 - History of Present Illness Initial Comments: 03/10/20 02:21 65yo male with history of alcohol use disorder and chronic back pain BIBEMS for intoxication. Patient complains of chronic back pain, and states it has been worse since the lidocaine patch wore off. Denies fever, incontinence/retention, weakness, paresthesias. Denies falls or trauma. ROS GENERAL/CONSTITUTIONAL: No fever or chills. No weakness. HEAD, EYES, EARS, NOSE AND THROAT: No change in vision. No ear pain or discha rge. No sore throat. CARDIOVASCULAR: No chest pain or shortness of breath RESPIRATORY: No cough, wheezing, or hemoptysis. GASTROINTESTINAL: No nausea, vomiting, diarrhea or constipation. GENITOURINARY: No dysuria, frequency, or change in urination. MUSCULOSKELETAL: No joint or muscle swelling or pain. back pain SKIN: No rash NEUROLOGIC: No headache, vertigo, loss of consciousness, or change in strength/sensation. ENDOCRINE: No increased thirst. No abnormal weight change HEMATOLOGIC/LYMPHATIC: No anemia, easy bleeding, or history of blood clots. ALLERGIC/IMMUNOLOGIC: No hives or skin allergy. PE GENERAL: Awake, alert, and fully oriented, in no acute distress HEAD: No signs of trauma, normocephalic, atraumatic EYES: PERRLA, EOMI, sclera anicteric, conjunctiva clear ENT: Auricles normal inspection, hearing grossly normal, nares patent, oropharynx clear without exudates. Moist mucosa NECK: Normal ROM, supple, no lymphadenopathy, JVD, or masses LUNGS: No distress, speaks full sentences, clear to auscultation bilaterally HEART: Regular rate and rhythm, normal S1 and S2, no murmurs, rubs or gallops, peripheral pulses normal and equal bilaterally. ABDOMEN: Soft, nontender, normoactive bowel sounds. No guarding, no rebound. No masses EXTREMITIES : 2+ b/l lower extremity edema to mid-calf, chronic NEUROLOGICAL: Cranial nerves II through XII grossly intact. Normal speech, no focal sensorimotor deficits SKIN: Warm, Dry, normal turgor, no rashes or lesions noted BACK: no midline tenderness Vital Signs Temp Pulse Resp BP Pulse Ox 97 F L 94 H 18 125/79 97 03/09/20 19:18 03/09/20 19:18 03/09/20 19:18 03/09/20 19:18 03/09/20 19:18 MDM: 65yo male with history of alcohol use disorder and chronic back pain BIBEMS for intoxication. Patient complains of chronic back pain, and states it has been worse since the lidocaine patch wore off. No red flag signs or symptoms. No evidence of withdrawal. -new lidocaine patch, robaxin -AM DC 03/10/20 06:54 Pain improved. Will give one robaxin to go and DC Past History - Medical History Allergies/Adverse Reactions: Allergies Allergy/AdvReac Type Severity Reaction Status Date / Time Fish Containing Products Allergy Mild Swelling Verified 03/09/20 19:20 No Known Drug Allergies Allergy Verified 03/09/20 19:20 Home Medications: Ambulatory Orders NK [No Known Home Medication] 03/05/20 Anemia: No Asthma: No Cancer: Yes (mesothelioma lung cancer) Cardiac Disorders: No CVA: No COPD: No CHF: No DVT: No Dementia: No Diabetes: No Dialysis: No GI Disorders: No Disorders: No HTN: Yes (non compliant with meds.) Hypercholesterolemia: Yes Kidney Stones: No Liver Disease: Yes (ETOH abuse) Psychiatric Problems: Yes (ETOH abuse) Seizures: No Thyroid Disease: No Lung CA: Yes (Mesothelioma) - Surgical History Abdominal Surgery: No Appendectomy: No Cardiac Surgery: No Cholecystectomy: No Lung Surgery: No Neurologic Surgery: No Orthopedic Surgery: No - Reproductive History Testicular Surgery: No - Immunization History Td Vaccination: Yes TDAP Vaccination: Yes Immunization Up to Date: Yes - Psycho-Social/Smoking History Smoking Status: No Smoking History: Never smoked Have you smoked in the past 12 months: No Number of Cigarettes Smoked Daily: 0 If you are a former smoker, when did you quit?: 0 Cigars Per Day: 0 'Breaking Loose' booklet given: 09/22/17 - Substance Abuse Hx (Audit-C & DAST Scrn) How often the patient has a drink containing alcohol: 4 0r more times/wk Score: In Men: 4 or > Positive; In Women: 3 or > Positive: 4 Screen Result (Pos requires Nsg. Audit-10AR): Positive *Physical Exam - Vital Signs Last Vital Signs Temp Pulse Resp BP Pulse Ox 97 F L 94 H 18 125/79 97 03/09/20 19:18 03/09/20 19:18 03/09/20 19:18 03/09/20 19:18 03/09/20 19:18 Discharge - Discharge Information Problems reviewed: Yes Clinical Impression/Diagnosis: Back pain Qualifiers: Back pain location: low back pain Chronicity: chronic Back pain laterality: bilateral Sciatica presence: without sciatica Qualified Code(s): M54.5 - Low back pain Condition: Improved Disposition: HOME - Admission No - Follow up/Referral - Patient Discharge Instructions Additional Instructions: You were seen in the ER for your chronic back pain and for alcohol intoxication. We did a physical exam and gave you medication for your back pain, including one pill of robaxin to go. Please return if you have fever, chest pain, shortness of breath, urinary incontinence or inability to urinate, or for any other c oncerning symptoms. - Post Discharge Activity
--- NOTE | 2020-03-10 02:32 | PDOC ---
Attending Attestation - Resident Resident Name: Mamadou Lauren - ED Attending Attestation I have performed the following: I have examined & evaluated the patient, The case was reviewed & discussed with the resident, I agree w/resident's findings & plan - HPI HPI: 03/10/20 05:10 PT COMES WITH ETOH INTOX - Physicial Exam PE: 03/10/20 05:10 AGREE WITH RESIDENT EXAM Pt is stable - Medical Decision Making 03/10/20 21:22 Signed out to the day ER docs. Discharge - Discharge Information Problems reviewed: Yes Clinical Impression/Diagnosis: Back pain Qualifiers: Back pain location: low back pain Chronicity: chronic Back pain laterality: bilateral Sciatica presence: without sciatica Qualified Code(s): M54.5 - Low back pain; G89.29 - Other chronic pain Alcohol dependence Qualifiers: Substance use status: with intoxication Complication of substance-induced condition: uncomplicated Qualified Code(s): F10.220 - Alcohol dependence with intoxication, uncomplicated Condition: Improved Disposition: HOME - Follow up/Referral - Patient Discharge Instructions Additional Instructions: You were seen in the ER for your chronic back pain and for alcohol intoxication. We did a physical exam and gave you medication for your back pain, including one pill of robaxin to go. Please return if you have fever, chest pain, shortness of breath, urinary incontinence or inability to urinate, or for any other concerning symptoms. - Post Discharge Activity
[2020-03-10 06:39] VITALS: BP 122/85; PULSE 96
[2020-03-10] MEDS ORDERED: LIDOCAINE PATCH REMOVAL MC SCH (22:00)
== END 2020-03-10 06:52 | disposition home or self-care (01) ==
LOC: JER 19:16
DX: M54.5 Low back pain (principal)
CPT/HCPCS: 99284-25

== ENCOUNTER 2020-03-14 13:45 | Emergency (ER) | payer OTHER ==
[2020-03-14 13:57] VITALS: BP 150/89; PULSE 79; TEMP 97.9; BMI 35.9
--- NOTE | 2020-03-14 14:18 | PDOC ---
History of Present Illness - General Chief Complaint: Chronic pain Stated Complaint: BACK PAIN Time Seen by Provider: 03/14/20 14:18 - History of Present Illness Initial Comments: 65 YOM h/o chronic back pain, mesothelioma, COVID, presents with lower back pain. Patient points to pain in lumbosacral region, describes it as 8/10, lidocaine patches make it better. Requesting lidocaine patch, steroid injection and definitive management of chronic back pain. Denies CP, SOB, N/V/D, fever, chills. Constitutional: No Weight Change, No Fever, No Chills, No Night Sweats, No Fatigue, No Malaise ENT/Mouth: No Hearing Changes, No Ear Pain, No Nasal Congestion, No Sinus Pain, No Hoarseness, No sore throat, No Rhinorrhea, No Swallowing Difficulty Eyes: No Eye Pain, No Swelling, No Redness, No Foreign Body, No Discharge, No Vision Changes Cardiovascular: No Chest Pain, No SOB, No PND, No Dyspnea on Exertion, No Orthopnea, No Claudication, No Edema, No Palpitations Respiratory: No Cough, No Sputum, No Wheezing, No Smoke Exposure, No Dyspnea Gastrointestinal: No Nausea, No Vomiting, No Diarrhea, No Constipation, No Pain, No Heartburn, No Anorexia, No Dysphagia, No Hematochezia, No Melena, No Flatulence, No Jaundice Genitourinary: No Dysmenorrhea, No DUB, No Dyspareunia, No Dysuria, No Urinary Frequency, No Hematuria, No Urinary Incontinence, No Urgency, No Flank Pain, No Urinary Flow Changes, No Hesitancy Musculoskeletal: No Arthralgias, No Myalgias, No Joint Swelling, No Joint Stiffness, No Back Pain, No Neck Pain, No Injury History Skin: No Skin Lesions, No Pruritis, No Hair Changes, No Breast/Skin Changes, No Nipple Discharge Neuro: No Weakness, No Numbness, No Paresthesias, No Loss of Consciousness, No Syncope, No Dizziness, No Headache, No Coordination Changes, No Recent Falls Psych: No Anxiety/Panic, No Depression, No Insomnia, No Personality Changes, No Delusions, No Rumination, No SI/HI/AH/VH, No Social Issues, No Memory Changes, No Violence/Abuse Hx., No Eating Concerns Heme/Lymph: No Bruising, No Bleeding, No Transfusions History, No Lymphadenopathy Endocrine: No Polyuria, No Polydipsia, No Temperature Intolerance Past History - Medical History Allergies/Adverse Reactions: Allergies Allergy/AdvReac Type Severity Reaction Status Date / Time Fish Containing Products Allergy Mild Swelling Verified 03/09/20 19:20 No Known Drug Allergies Allergy Verified 03/09/20 19:20 Home Medications: Ambulatory Orders NK [No Known Home Medication] 03/05/20 Anemia: No Asthma: No Cancer: Yes (mesothelioma lung cancer) Cardiac Disorders: No CVA: No COPD: No CHF: No DVT: No Dementia: No Diabetes: No Dialysis: No GI Disorders: No Disorders: No HTN: Yes (non compliant with meds.) Hypercholesterolemia: Yes Kidney Stones: No Liver Disease: Yes (ETOH abuse) Psychiatric Problems: Yes (ETOH abuse) Seizures: No Thyroid Disease: No Lung CA: Yes (Mesothelioma) - Surgical History Abdominal Surgery: No Appendectomy: No Cardiac Surgery: No Cholecystectomy: No Lung Surgery: No Neurologic Surgery: No Orthopedic Surgery: No - Reproductive History Testicular Surgery: No - Immunization History Td Vaccination: Yes TDAP Vaccination: Yes Immunization Up to Date: Yes - Psycho-Social/Smoking History Smoking Status: No Smoking History: Never smoked Have you smoked in the past 12 months: No Number of Cigarettes Smoked Daily: 0 If you are a former smoker, when did you quit?: 0 Cigars Per Day: 0 Information on smoking cessation initiated: No 'Breaking Loose' booklet given: 09/22/17 - Substance Abuse Hx (Audit-C & DAST Scrn) How often the patient has a drink containing alcohol: 4 0r more times/wk Number of drinks the patient has on a typical day: 7 to 9 How often the patient has six or more drinks on one occasion: Daily or almost daily Score: In Men: 4 or > Positive; In Women: 3 or > Positive: 11 Screen Result (Pos requires Nsg. Audit-10AR): Positive In the last yr the pt used illegal drug/Rx for NonMed reason: No Score: Yes response is considered Positive: 0 Screen Result (Positive result requires Nsg. DAST-10): Negative *Physical Exam - Vital Signs Last Vital Signs Temp Pulse Resp BP Pulse Ox 97.9 F 79 18 150/89 95 03/14/20 13:51 03/14/20 13:51 03/14/20 13:51 03/14/20 13:51 03/14/20 13:51 - Physical Exam General Appearance: Yes: Nourished, Disheveled, Intoxicated HEENT: positive: EOMI, DOUGLAS, Normal ENT Inspection, Normal Voice, Symmetrical, TMs Normal, Pharynx Normal Neck: positive: Trachea midline, Normal Thyroid Respiratory/Chest: positive: Lungs Clear, Normal Breath Sounds Cardiovascular: positive: Regular Rhythm, Regular Rate, S1, S2 Gastrointestinal/Abdominal: positive: Flat, Soft Musculoskeletal: positive: Other (pain to palpation of lower back) Medical Decision Making - Medical Decision Making 65 YOM presents with lower back pain - vitals wnl - exam significant for ttp lower back - will give lidocaine patch and dc 03/14/20 15:15 Discharge - Discharge Information Problems reviewed: Yes Clinical Impression/Diagnosis: Back pain Condition: Good - Admission No - Follow up/Referral Referrals: Ken Bridges MD [Primary Care Provider] - - Patient Discharge Instructions Additional Instructions: You were seen in the emergency department for back pain. You reported that this pain is chronic. You requested a lidocaine patch which you received. You were considered medically stable and safe to return home. If these symptoms continue while at home you can use tylenol, motrin, or aleve or over the counter lidocaine patches for relief. Please following the dosing instructions on the packaging for these products. How can you care for yourself at home? Self-care strategies Pay attention to your posture. In many cases, low back pain is the result of bad posture. Stand or sit tall, with your shoulders back and your stomach pulled in to support your back. Your ears and shoulders should be lined up over your hips. Anytime you begin to feel pain in your back, check your posture. You may be able to fix the problem by paying attention to how you are sitting or standing. Get some exercise every day. Exercise may not only help treat low back pain, but it may also help keep your back from hurting again. Each day, try to do some stretching and some exercises to strengthen your stomach, back, and legs. You should also do daily exercises that get your heart rate up, such as walking, swimming, or biking. Do not smoke. Smoking decreases blood flow and slows healing. If you need help quitting, talk to your doctor about stop-smoking programs and medicines. These can increase your chances of quitting for good. Take pain medicines exactly as directed. If the doctor gave you a prescription medicine for pain, take it as prescribed. If you are not taking a prescription pain medicine, ask your doctor if you can take an [id number] medicine. Make changes at work Return to the emergency department if: You have severe pain. You have sudden stiffness and heaviness on both buttocks down to both legs. You have numbness or weakness in one leg, or pain in both legs. You have numbness in your genital area or across your lower back. You cannot control your urine or bowel movements. Contact your healthcare provider if: You have a fever. You have pain at night or when you rest. Your pain does not get better with treatment. You have pain that worsens when you cough or sneeze. You suddenly feel something pop or snap in your back. You have questions or concerns about your condition or care. - Post Discharge Activity
[2020-03-14] MEDS ORDERED: LIDOCAINE 5% TOPICAL PATCH TP ONE (15:05)
--- NOTE | 2020-03-14 19:25 | PDOC ---
Documentation entered by Geovanna Vera SCRIBE, acting as scribe for Monica Suh MD. Monica Suh MD: This documentation has been prepared by the Chuy pereira Lincy, SCRIBE, under my direction and personally reviewed by me in its entirety. I confirm that the documentation accurately reflects all work, treatment, procedures, and medical decision making performed by me. Attending Attestation - Resident Resident Name: AlfieCade jett - ED Attending Attestation I have performed the following: I have examined & evaluated the patient, The case was reviewed & discussed with the resident, I agree w/resident's findings & plan, Exceptions are as noted - HPI HPI: 03/14/20 15:54 The patient is a 65 year old male with past medical history significant for chronic back pain, mesothelioma, HTN and HLD who presents to the emergency department for lower back pain. pt h/o etoh abuse, near daily visits to ED. denies any other complaints today, states his usual back pain. no new weakness or numbness. 03/14/20 19:23 - Physicial Exam PE: 03/14/20 19:23 pt drowsy but arousable. lying on stretcher. lungs clear bilat heart rrr no mrg abd soft nt nd ext wwp. no edema. - Medical Decision Making 03/14/20 19:24 65 yo male well known to dept, h/o etoh abuse, htn chronic back pain. her with request pain medication for his back and something to eat. overall well appearing today. sleeping but arousable. clear speech on awakenin.g given his lidoderm patch. will likley dc to home. pt offered detox, declined. Discharge - Discharge Information Problems reviewed: Yes Clinical Impression/Diagnosis: Back pain Condition: Good - Follow up/Referral Referrals: Ken Bridges MD [Primary Care Provider] - - Patient Discharge Instructions Additional Instructions: You were seen in the emergency department for back pain. You reported that this pain is chronic. You requested a lidocaine patch which you received. You were considered medically stable and safe to return home. If these symptoms continue while at home you can use tylenol, motrin, or aleve or over the counter lidocaine patches for relief. Please following the dosing instructions on the packaging for these products. How can you care for yourself at home? Self-care strategies Pay attention to your posture. In many cases, low back pain is the result of bad posture. Stand or sit tall, with your shoulders back and your stomach pulled in to support your back. Your ears and shoulders should be lined up over your hips. Anytime you begin to feel pain in your back, check your posture. You may be able to fix the problem by paying attention to how you are sitting or standing. Get some exercise every day. Exercise may not only help treat low back pain, but it may also help keep your back from hurting again. Each day, try to do some stretching and some exercises to strengthen your stomach, back, and legs. You should also do daily exercises that get your heart rate up, such as walking, swimming, or biking. Do not smoke. Smoking decreases blood flow and slows healing. If you need help quitting, talk to your doctor about stop-smoking programs and medicines. These can increase your chances of quitting for good. Take pain medicines exactly as directed. If the doctor gave you a prescription medicine for pain, take it as prescribed. If you are not taking a prescription pain medicine, ask your doctor if you can take an [id number]-[id number] medicine. Make changes at work Return to the emergency department if: You have severe pain. You have sudden stiffness and heaviness on both buttocks down to both legs. You have numbness or weakness in one leg, or pain in both legs. You have numbness in your genital area or across your lower back. You cannot control your urine or bowel movements. Contact your healthcare provider if: You have a fever. You have pain at night or when you rest. Your pain does not get better with treatment. You have pain that worsens when you cough or sneeze. You suddenly feel something pop or snap in your back. You have questions or concerns about your condition or care. - Post Discharge Activity
[2020-03-14] MEDS ORDERED: LIDOCAINE PATCH REMOVAL MC SCH (22:00)
== END 2020-03-14 19:00 | disposition home or self-care (01) ==
LOC: JER 13:45
DX: M54.5 Low back pain (principal)
CPT/HCPCS: 99283-25

== ENCOUNTER 2020-03-14 22:26 | Emergency (ER) | payer OTHER ==
[2020-03-14 22:38] VITALS: BMI 25.0
--- NOTE | 2020-03-15 00:19 | PDOC ---
Attending Attestation - Resident Resident Name: Ron Ryan - ED Attending Attestation I have performed the following: I have examined & evaluated the patient, The case was reviewed & discussed with the resident, I agree w/resident's findings & plan - HPI HPI: 03/15/20 00:18 see resident hpi - Physicial Exam PE: 03/15/20 00:18 see resident exam - Medical Decision Making 03/15/20 00:18 65-year-old male known well to this facility with history of alcohol abuse and malingering discharged from the emergency department several hours prior to returning stating on the EMS stretcher "I am back " Patient has no new complaints We will DC Discharge - Discharge Information Problems reviewed: Yes Clinical Impression/Diagnosis: Malingerer - Follow up/Referral Referrals: Ken Bridges MD [Primary Care Provider] - - Patient Discharge Instructions - Post Discharge Activity
--- NOTE | 2020-03-15 00:21 | PDOC ---
History of Present Illness - General Chief Complaint: Back Pain Stated Complaint: BACK PAIN/ALCOHOL INTOXICATION Time Seen by Provider: 03/15/20 00:15 History Source: Patient - History of Present Illness Initial Comments: 03/15/20 00:30 Patient has no specific complaints at this time. History limited by intoxication. Past History - Medical History Allergies/Adverse Reactions: Allergies Allergy/AdvReac Type Severity Reaction Status Date / Time Fish Containing Products Allergy Mild Swelling Verified 03/09/20 19:20 No Known Drug Allergies Allergy Verified 03/09/20 19:20 Home Medications: Ambulatory Orders NK [No Known Home Medication] 03/05/20 Anemia: No Asthma: No Cancer: Yes (mesothelioma lung cancer) Cardiac Disorders: No CVA: No COPD: No CHF: No DVT: No Dementia: No Diabetes: No Dialysis: No GI Disorders: No Disorders: No HTN: Yes (non compliant with meds.) Hypercholesterolemia: Yes Kidney Stones: No Liver Disease: Yes (ETOH abuse) Psychiatric Problems: Yes (ETOH abuse) Seizures: No Thyroid Disease: No Lung CA: Yes (Mesothelioma) - Surgical History Abdominal Surgery: No Appendectomy: No Cardiac Surgery: No Cholecystectomy: No Lung Surgery: No Neurologic Surgery: No Orthopedic Surgery: No - Reproductive History Testicular Surgery: No - Immunization History Td Vaccination: Yes TDAP Vaccination: Yes Immunization Up to Date: Yes - Psycho-Social/Smoking History Smoking Status: No Smoking History: Never smoked Have you smoked in the past 12 months: No Number of Cigarettes Smoked Daily: 0 If you are a former smoker, when did you quit?: 0 Cigars Per Day: 0 'Breaking Loose' booklet given: 09/22/17 - Substance Abuse Hx (Audit-C & DAST Scrn) How often the patient has a drink containing alcohol: 4 0r more times/wk Number of drinks the patient has on a typical day: 7 to 9 How often the patient has six or more drinks on one occasion: Daily or almost daily Score: In Men: 4 or > Positive; In Women: 3 or > Positive: 11 Screen Result (Pos requires Nsg. Audit-10AR): Positive In the last yr the pt used illegal drug/Rx for NonMed reason: No Score: Yes response is considered Positive: 0 Screen Result (Positive result requires Nsg. DAST-10): Negative Review of Systems - Review of Systems Able to Perform ROS?: No Comments:: 10/01/20 00:31 Unable to complete secondary to intoxication *Physical Exam - Vital Signs Last Vital Signs Temp Pulse Resp BP Pulse Ox 97.8 F 97 H 19 118/84 94 L 03/14/20 22:28 03/14/20 22:28 03/14/20 22:28 03/14/20 22:28 03/14/20 22:28 - Physical Exam 03/15/20 00:35 GENERAL: Sleeping comfortably in wheelchair, in no acute distress HEAD: No signs of trauma, normocephalic, atraumatic EYES: PERRLA, EOMI, sclera anicteric, conjunctiva clear ENT: Auricles normal inspection, hearing grossly normal, nares patent, oropharynx clear without exudates. Moist mucosa NECK: Normal ROM, supple, no lymphadenopathy, JVD, or masses LUNGS: No distress, clear to auscultation bilaterally HEART: Regular rate and rhythm, normal S1 and S2, no murmurs, rubs or gallops, peripheral pulses normal and equal bilaterally. ABDOMEN: Soft, nontender, normoactive bowel sounds. No guarding, no rebound. No masses EXTREMITIES : Normal inspection, Normal range of motion, no edema. No clubbing or cyanosis NEUROLOGICAL: Cranial nerves II through XII grossly intact. Normal speech, no focal sensorimotor deficits SKIN: Warm, Dry, normal turgor, no rashes or lesions noted Medical Decision Making - Medical Decision Making 03/15/20 00:36 65M w/hx pulmonary HTN, stable PEs, mesothelioma, HTN, HLD, presents for EtOH intoxication. He denies any symptoms or complaints at this time. Plan: Observation to sobriety Dispo: Discharge Discharge - Discharge Information Problems reviewed: Yes Clinical Impression/Diagnosis: Malingerer Condition: Stable Disposition: HOME - Admission No - Follow up/Referral Referrals: Ken Bridges MD [Primary Care Provider] - - Patient Discharge Instructions Patient Printed Discharge Instructions: Alcohol and Stress: There are Safer Ways to [place], [place] for Alcohol Use Disorder Additional Instructions: You were seen in the ER for alcohol intoxication. Please follow up with your primary care physician as needed. Return to the ER if you develop tremors, hallucinations, confusion, chest pain, difficulty breathing, or high fevers. - Post Discharge Activity
[2020-03-15 05:34] VITALS: BP 145/87; PULSE 93; TEMP 98.6
== END 2020-03-15 06:39 | disposition home or self-care (01) ==
LOC: JER 22:26
DX: Z76.5 Malingerer [conscious simulation] (principal)
CPT/HCPCS: 99282-25

== ENCOUNTER 2020-03-15 14:05 | Emergency (ER) | payer OTHER ==
[2020-03-15 14:12] VITALS: BP 113/68; PULSE 101; TEMP 98.5; BMI 31.5
--- NOTE | 2020-03-15 15:20 | PDOC ---
History of Present Illness - General Chief Complaint: Back Pain Stated Complaint: Alcohol intoxication Time Seen by Provider: 03/15/20 15:19 History Source: Patient Exam Limitations: Intoxication - History of Present Illness Initial Comments: 03/15/20 15:30 65 y.o. M presenting to the ED with complaints of back pain. Patient exam is limited due to alcohol intoxication. Patient denies headache, SOB, chest pain, N/V/D. Patient well known to ED. 03/15/20 16:05 Past History - Medical History Allergies/Adverse Reactions: Allergies Allergy/AdvReac Type Severity Reaction Status Date / Time Fish Containing Products Allergy Mild Swelling Verified 03/15/20 14:09 No Known Drug Allergies Allergy Verified 03/15/20 14:09 Home Medications: Ambulatory Orders NK [No Known Home Medication] 03/05/20 Anemia: No Asthma: No Cancer: Yes (mesothelioma lung cancer) Cardiac Disorders: No CVA: No COPD: No CHF: No DVT: No Dementia: No Diabetes: No Dialysis: No GI Disorders: No Disorders: No HTN: Yes (non compliant with meds.) Hypercholesterolemia: Yes Kidney Stones: No Liver Disease: Yes (ETOH abuse) Psychiatric Problems: Yes (ETOH abuse) Seizures: No Thyroid Disease: No Lung CA: Yes (Mesothelioma) - Surgical History Abdominal Surgery: No Appendectomy: No Cardiac Surgery: No Cholecystectomy: No Lung Surgery: No Neurologic Surgery: No Orthopedic Surgery: No - Reproductive History Testicular Surgery: No - Immunization History Td Vaccination: Yes TDAP Vaccination: Yes Immunization Up to Date: Yes - Psycho-Social/Smoking History Smoking Status: No Smoking History: Never smoked Have you smoked in the past 12 months: No Number of Cigarettes Smoked Daily: 0 If you are a former smoker, when did you quit?: 0 Cigars Per Day: 0 'Breaking Loose' booklet given: 09/22/17 - Substance Abuse Hx (Audit-C & DAST Scrn) How often the patient has a drink containing alcohol: 4 0r more times/wk Number of drinks the patient has on a typical day: 3 or 4 How often the patient has six or more drinks on one occasion: Weekly Score: In Men: 4 or > Positive; In Women: 3 or > Positive: 8 Screen Result (Pos requires Nsg. Audit-10AR): Positive In the last yr the pt used illegal drug/Rx for NonMed reason: No Score: Yes response is considered Positive: 0 Screen Result (Positive result requires Nsg. DAST-10): Negative Review of Systems - Review of Systems Able to Perform ROS?: No Is the patient limited Citizen Of [place] proficient: No *Physical Exam - Vital Signs Last Vital Signs Temp Pulse Resp BP Pulse Ox 98.5 F 101 H 18 113/68 100 03/15/20 14:09 03/15/20 14:09 03/15/20 14:09 03/15/20 14:09 03/15/20 14:09 - Physical Exam General Appearance: Yes: Nourished. No: Appropriately Dressed, Apparent Distress Respiratory/Chest: positive: Lungs Clear, Normal Breath Sounds. negative: Chest Tender, Respiratory Distress, Accessory Muscle Use, Crackles, Rales, Stridor Cardiovascular: positive: Regular Rhythm, Regular Rate. negative: JVD, Murmur Gastrointestinal/Abdominal: positive: Normal Bowel Sounds, Flat, Soft, Protuberent. negative: Tender, Organomegaly, Distended, Guarding, Rebound, Tenderness Musculoskeletal: positive: Normal Inspection. negative: CVA Tenderness Extremity: positive: Normal Inspection, Swelling. negative: Tender, Coldness, Calf Tenderness Integumentary: positive: Normal Color, Dry, Warm Neurologic: positive: Fully Oriented, Alert, Normal Mood/Affect, Normal Response Medical Decision Making - Medical Decision Making 03/15/20 15:34 65 y.o. M presenting to the ED with complaints of back pain. DDx: Alcohol intoxication - Patient seen functional/ambulatory walking out of the ED. Dispo: Patient Eloped 03/15/20 16:06 Discharge - Discharge Information Problems reviewed: Yes Clinical Impression/Diagnosis: Back ache Qualifiers: Back pain location: low back pain Chronicity: chronic Back pain laterality: bilateral Sciatica presence: without sciatica Qualified Code(s): M54.5 - Low back pain Condition: Stable Disposition: ELOPED - Follow up/Referral Referrals: Ken Bridges MD [Primary Care Provider] - - Patient Discharge Instructions - Post Discharge Activity
[2020-03-15] MEDS ORDERED: LIDOCAINE 5% TOPICAL PATCH TP ONE (15:46)
--- NOTE | 2020-03-15 16:13 | PDOC ---
Documentation entered by Riddhi Paniagua SCRIBE, acting as scribe for Nuris Smith MD. Nuris Smith MD: This documentation has been prepared by the Siva pereira Ana, SCRIBE, under my direction and personally reviewed by me in its entirety. I confirm that the documentation accurately reflects all work, treatment, procedures, and medical decision making performed by me. Attending Attestation - Resident Resident Name: Ayaz Sierra - ED Attending Attestation I have performed the following: I have examined & evaluated the patient, The case was reviewed & discussed with the resident, I agree w/resident's findings & plan, Exceptions are as noted - HPI HPI: 03/15/20 15:37 Patient is a 65 year old male with a significant past medical history of alcohol abuse among other things (comes to the ED very frequently) who presents to the ED complaining of back pain. Patient denies: headache, nausea, vomiting, SOB, chest pain, diarrhea, or any other related symptoms. Allergies: NKDA, fish containing products HPI is limited to the patient being intoxicated (alcohol) - Physicial Exam PE: 03/15/20 16:10 Patient eloped from the ED prior to my exam. - Medical Decision Making 03/15/20 16:11 Pt presents to the ED intoxicated without signs or history of trauma. Patient is very well known to me, with very frequent visits to the ED for similar complaints. Eloped from the ED prior to my exam. Discharge - Discharge Information Problems reviewed: Yes Clinical Impression/Diagnosis: Back ache Qualifiers: Back pain location: low back pain Chronicity: chronic Back pain laterality: unspecified Sciatica presence: unspecified whether sciatica present Qualified Code(s): M54.5 - Low back pain Condition: Stable Disposition: ELOPED - Follow up/Referral Referrals: Ken Bridges MD [Primary Care Provider] - - Patient Discharge Instructions - Post Discharge Activity
[2020-03-15] MEDS ORDERED: LIDOCAINE PATCH REMOVAL MC SCH (22:00)
== END 2020-03-15 16:02 | disposition left against medical advice (07) ==
LOC: JER 14:05
DX: M54.5 Low back pain (principal)
CPT/HCPCS: 99283-25

== ENCOUNTER 2020-03-15 18:55 | Emergency (ER) | payer OTHER ==
[2020-03-15 19:23] VITALS: TEMP 98.2; BMI 25.8
[2020-03-16] MEDS ORDERED: METHOCARBAMOL 500 MG TABLET PO ONE (03:43)
--- NOTE | 2020-03-16 04:01 | PDOC ---
History of Present Illness - General Chief Complaint: Back Pain Stated Complaint: Intox Time Seen by Provider: 03/16/20 03:35 History Source: Patient Exam Limitations: No Limitations - History of Present Illness Initial Comments: 03/16/20 03:59 65y M with pmh of alcohol abuse, chronic back pain, well known to the department presenting to the ER with complaints of back pain. Pt states the pain is the same, has not changed in intensity. No numbness/tingling, weakness, difficulty walking, chest pain, sob, syncope, abdominal pain, n/v/d, incontinence, saddle anesthesia. Past History - Medical History Allergies/Adverse Reactions: Allergies Allergy/AdvReac Type Severity Reaction Status Date / Time Fish Containing Products Allergy Mild Swelling Verified 03/15/20 14:09 No Known Drug Allergies Allergy Verified 03/15/20 14:09 Home Medications: Ambulatory Orders NK [No Known Home Medication] 03/05/20 Anemia: No Asthma: No Cancer: Yes (mesothelioma lung cancer) Cardiac Disorders: No CVA: No COPD: No CHF: No DVT: No Dementia: No Diabetes: No Dialysis: No GI Disorders: No Disorders: No HTN: Yes (non compliant with meds.) Hypercholesterolemia: Yes Kidney Stones: No Liver Disease: Yes (ETOH abuse) Psychiatric Problems: Yes (ETOH abuse) Seizures: No Thyroid Disease: No Lung CA: Yes (Mesothelioma) - Surgical History Abdominal Surgery: No Appendectomy: No Cardiac Surgery: No Cholecystectomy: No Lung Surgery: No Neurologic Surgery: No Orthopedic Surgery: No - Reproductive History Testicular Surgery: No - Immunization History Td Vaccination: Yes TDAP Vaccination: Yes Immunization Up to Date: Yes - Psycho-Social/Smoking History Smoking Status: No Smoking History: Never smoked Have you smoked in the past 12 months: No Number of Cigarettes Smoked Daily: 0 If you are a former smoker, when did you quit?: 0 Cigars Per Day: 0 'Breaking Loose' booklet given: 09/22/17 - Substance Abuse Hx (Audit-C & DAST Scrn) How often the patient has a drink containing alcohol: 4 0r more times/wk Number of drinks the patient has on a typical day: 7 to 9 How often the patient has six or more drinks on one occasion: Daily or almost daily Score: In Men: 4 or > Positive; In Women: 3 or > Positive: 11 Screen Result (Pos requires Nsg. Audit-10AR): Positive In the last yr the pt used illegal drug/Rx for NonMed reason: No Score: Yes response is considered Positive: 0 Screen Result (Positive result requires Nsg. DAST-10): Negative Review of Systems - Review of Systems Constitutional: No: Symptoms Reported HEENTM: No: Symptoms Reported Respiratory: No: Symptoms reported Cardiac (ROS): No: Symptoms Reported ABD/GI: No: Symptoms Reported : No: Symptoms Reported Musculoskeletal: Yes: See HPI Integumentary: No: Symptoms Reported Neurological: No: Symptoms reported *Physical Exam - Vital Signs Last Vital Signs Temp Pulse Resp BP Pulse Ox 98.2 F 91 H 19 125/73 96 03/15/20 19:18 03/15/20 19:18 03/15/20 19:18 03/15/20 19:18 03/15/20 19:18 - Physical Exam General Appearance: Yes: Nourished, Appropriately Dressed. No: Apparent Distress HEENT: positive: EOMI, DOUGLAS Neck: positive: Trachea midline, Supple Respiratory/Chest: positive: Lungs Clear, Normal Breath Sounds Cardiovascular: positive: Regular Rhythm, Regular Rate Gastrointestinal/Abdominal: positive: Normal Bowel Sounds, Soft. negative: Tend er Musculoskeletal: positive: Other (paraspinal tenderness). negative: CVA Tenderness, Vertebral Tenderness Extremity: positive: Normal Capillary Refill Integumentary: positive: Normal Color, Dry, Warm Neurologic: positive: twisting frame changer II-XII NML intact, Fully Oriented, Alert, Normal Mood/Affect, Normal Response, Motor Strength 5/5 Medical Decision Making - Medical Decision Making 03/16/20 04:00 65y m presenting to the ER for back pain. vitals wnl. pt appears comfortable, no spinal tenderness, no signs of external injury. pt refusing lidoderm patch and tylenol, requesting robaxin and water. will give robaxin. given history of pain which has not changed in acuity or intensity; does not require further workup at this time. will give meds. will dc return precautions provided. Discharge - Discharge Information Problems reviewed: Yes Clinical Impression/Diagnosis: Back pain Qualifiers: Back pain location: low back pain Chronicity: chronic Back pain laterality: bilateral Sciatica presence: without sciatica Qualified Code(s): M54.5 - Low back pain Condition: Good Disposition: HOME - Admission No - Follow up/Referral - Patient Discharge Instructions Additional Instructions: You were seen in the ER for back pain. You can take Tylenol as needed. Come back to the ER if you have worsening pain, have difficulty walking, have numbness in the groin area or if any new or concerning symptom develops. Thank you - Post Discharge Activity
--- NOTE | 2020-03-16 06:27 | PDOC ---
Attending Attestation - Resident Resident Name: Elizabeth West - ED Attending Attestation I have performed the following: I have examined & evaluated the patient, The case was reviewed & discussed with the resident, I agree w/resident's findings & plan, Exceptions are as noted - HPI HPI: 03/16/20 07:01 See resident HPI - Physicial Exam PE: 03/16/20 07:01 Agree with documented exam - Medical Decision Making 03/16/20 07:02 C/o chronic lower back analgesia dc Discharge - Discharge Information Problems reviewed: Yes Clinical Impression/Diagnosis: Back pain Qualifiers: Back pain location: low back pain Chronicity: chronic Back pain laterality: bilateral Sciatica presence: without sciatica Qualified Code(s): M54.5 - Low back pain Condition: Good Disposition: HOME - Follow up/Referral - Patient Discharge Instructions Additional Instructions: You were seen in the ER for back pain. You can take Tylenol as needed. Come back to the ER if you have worsening pain, have difficulty walking, have numbness in the groin area or if any new or concerning symptom develops. Thank you - Post Discharge Activity
[2020-03-16 06:32] VITALS: BP 130/91; PULSE 89
== END 2020-03-16 06:19 | disposition home or self-care (01) ==
LOC: JER 18:55
DX: M54.5 Low back pain (principal)
CPT/HCPCS: 99283-25

== ENCOUNTER 2020-03-21 00:37 | Emergency (ER) | payer OTHER ==
[2020-03-21 00:56] VITALS: BMI 34.4
--- NOTE | 2020-03-21 03:01 | PDOC ---
History of Present Illness - General Chief Complaint: Chronic pain Stated Complaint: BACK PAIN Time Seen by Provider: 03/21/20 02:36 History Source: Patient - History of Present Illness Initial Comments: 03/21/20 02:59 65-year-old undomiciled male known patient to the ED with multiple visit patient was seen in this ED earlier today. "I need to get clean I need to go to [facility] rehab did not have a bed until the morning "denies fever/chills, nausea, vomiting. Patient reports having the last drink 6 days ago. Denies weakness, shakiness, headache, dizziness. Past History - Medical History Allergies/Adverse Reactions: Allergies Allergy/AdvReac Type Severity Reaction Status Date / Time Fish Containing Products Allergy Mild Swelling Verified 03/21/20 00:48 No Known Drug Allergies Allergy Verified 03/21/20 00:48 Home Medications: Ambulatory Orders NK [No Known Home Medication] 03/05/20 Anemia: No Asthma: No Cancer: Yes (mesothelioma lung cancer) Cardiac Disorders: No CVA: No COPD: No CHF: No DVT: No Dementia: No Diabetes: No Dialysis: No GI Disorders: No Disorders: No HTN: Yes (non compliant with meds.) Hypercholesterolemia: Yes Kidney Stones: No Liver Disease: Yes (ETOH abuse) Psychiatric Problems: Yes (ETOH abuse) Seizures: No Thyroid Disease: No Lung CA: Yes (Mesothelioma) - Surgical History Abdominal Surgery: No Appendectomy: No Cardiac Surgery: No Cholecystectomy: No Lung Surgery: No Neurologic Surgery: No Orthopedic Surgery: No - Reproductive History Testicular Surgery: No - Immunization History Td Vaccination: Yes TDAP Vaccination: Yes Immunization Up to Date: Yes - Psycho-Social/Smoking History Smoking Status: No Smoking History: Never smoked Have you smoked in the past 12 months: No Number of Cigarettes Smoked Daily: 0 If you are a former smoker, when did you quit?: 0 Cigars Per Day: 0 'Breaking Loose' booklet given: 09/22/17 - Substance Abuse Hx (Audit-C & DAST Scrn) How often the patient has a drink containing alcohol: 4 0r more times/wk Number of drinks the patient has on a typical day: 7 to 9 How often the patient has six or more drinks on one occasion: Daily or almost daily Score: In Men: 4 or > Positive; In Women: 3 or > Positive: 11 Screen Result (Pos requires Nsg. Audit-10AR): Positive In the last yr the pt used illegal drug/Rx for NonMed reason: No Score: Yes response is considered Positive: 0 Screen Result (Positive result requires Nsg. DAST-10): Negative *Physical Exam - Vital Signs Last Vital Signs Temp Pulse Resp BP Pulse Ox 98.8 F 81 17 110/45 L 97 03/21/20 00:40 03/21/20 00:40 03/21/20 00:40 03/21/20 00:40 03/21/20 00:40 - Physical Exam General Appearance: Yes: Appropriately Dressed, Disheveled. No: Alcohol on Breath, Intoxicated HEENT: positive: Other (No visible trauma normocephalic) Respiratory/Chest: positive: Lungs Clear, Normal Breath Sounds Integumentary: positive: Dry, Warm Neurologic: positive: Fully Oriented, Alert, Normal Mood/Affect Medical Decision Making - Medical Decision Making 03/21/20 05:16 Patient is requesting rehab patient will be going back to [facility] for possible admission. 03/21/20 06:22 Patient alert oriented x3 no slurred speech patient still requesting rehab. Patient to go to [facility] with security. Discharge - Discharge Information Problems reviewed: Yes Clinical Impression/Diagnosis: Alcohol abuse Condition: Fair Disposition: HOME - Follow up/Referral Referrals: Lily Cornejo [Primary Care Provider] - - Patient Discharge Instructions - Post Discharge Activity
[2020-03-21 06:33] VITALS: BP 117/70; PULSE 91; TEMP 98.1
== END 2020-03-21 06:30 | disposition home or self-care (01) ==
LOC: JER 00:37
DX: F10.10 Alcohol abuse, uncomplicated (principal)
CPT/HCPCS: 99281-25

== ENCOUNTER 2020-03-21 14:31 | Emergency (ER) | payer OTHER ==
--- NOTE | 2020-03-21 14:35 | PDOC ---
Rapid Medical Evaluation Time Seen by Provider: 03/21/20 14:33 Medical Evaluation: Allergies Allergy/AdvReac Type Severity Reaction Status Date / Time Fish Containing Products Allergy Mild Swelling Verified 03/21/20 00:48 No Known Drug Allergies Allergy Verified 03/21/20 00:48 03/21/20 14:35 Pt presents for evaluation of intoxication. No other complaints at this time Exam: No respiratory distress, alcohol on the breath Orders: nothing Pt to proceed to the ER for further evaluation Discharge Disposition - Diagnosis Alcohol intoxication - Referrals - Patient Instructions - Post Discharge Activity
[2020-03-21 14:38] VITALS: BP 105/65; PULSE 85; TEMP 97.8; BMI 27.9
--- NOTE | 2020-03-21 16:33 | PDOC ---
History of Present Illness - General Chief Complaint: Alcohol intoxication Stated Complaint: BACK PAIN Time Seen by Provider: 03/21/20 14:33 History Source: Patient, Old Records Exam Limitations: No Limitations - History of Present Illness Initial Comments: 03/21/20 16:32 Patients Doctor(s): PCP none History of Present Illness: 62-year-old male with past mental history of COVID-19, mesothelioma with long history of EtOH abuse and multiple ER visits and admission secondary to EtOH abuse is presented to the emergency department by EMS secondary to public intoxication. Patient presently states that he is experiencing pain to his lower back. Patient is not slurring his speech at this time but is unstable in gait and is intoxicated. Patient is presently able to deny chest pain, dizziness, blurred vision, nausea/vomiting, diarrhea, constipation, fever or chills. Patient denies use of any [id number] medication for the treatment of this complaint. Patient denies any sick contacts, travel outside the [place] or contact with any sick individuals who have been outside the [place]. Review of Systems: GENERAL/CONSTITUTIONAL: No fever or chills. No weakness. No weight change. HEAD, EYES, EARS, NOSE AND THROAT: No change in vision. No ear pain or discharge. No sore throat. CARDIOVASCULAR: No chest pain or shortness of breath. RESPIRATORY: No cough, wheezing, or hemoptysis. GASTROINTESTINAL: No nausea, vomiting, diarrhea or constipation. No rectal bleeding. GENITOURINARY: No dysuria, frequency, or change in urination. MUSCULOSKELETAL: No joint or muscle swelling or pain. No neck or back pain. SKIN AND BREASTS: No rash or easy bruising. NEUROLOGIC: No headache, vertigo, loss of consciousness, or loss of sensation. PSYCHIATRIC: EtOH abuse, No depression or anxiety. ENDOCRINE: No increased thirst. No abnormal weight change. HEMATOLOGIC/LYMPHATIC: No anemia, easy bleeding, or history of blood clots. ALLERGIC/IMMUNOLOGIC: No hives or skin allergy. No latex allergy. Past Medical History: Mesothelioma, COVID-19, alcohol abuse Family History: Mother with cancer Social History: EtOH abuse Surgical history: Denies Allergies: No known drug allergies Past History - Medical History Allergies/Adverse Reactions: Allergies Allergy/AdvReac Type Severity Reaction Status Date / Time Fish Containing Products Allergy Mild Swelling Verified 03/21/20 14:37 No Known Drug Allergies Allergy Verified 03/21/20 14:37 Home Medications: Ambulatory Orders NK [No Known Home Medication] 03/05/20 Anemia: No Asthma: No Cancer: Yes (mesothelioma lung cancer) Cardiac Disorders: No CVA: No COPD: No CHF: No DVT: No Dementia: No Diabetes: No Dialysis: No GI Disorders: No Disorders: No HTN: Yes (non compliant with meds.) Hypercholesterolemia: Yes Kidney Stones: No Liver Disease: Yes (ETOH abuse) Psychiatric Problems: Yes (ETOH abuse) Seizures: No Thyroid Disease: No Lung CA: Yes (Mesothelioma) Other medical history: hx of COVID-19 - Surgical History Abdominal Surgery: No Appendectomy: No Cardiac Surgery: No Cholecystectomy: No Lung Surgery: No Neurologic Surgery: No Orthopedic Surgery: No - Reproductive History Testicular Surgery: No - Immunization History Td Vaccination: Yes TDAP Vaccination: Yes Immunization Up to Date: Yes - Psycho-Social/Smoking History Smoking Status: No Smoking History: Never smoked Have you smoked in the past 12 months: No Number of Cigarettes Smoked Daily: 0 If you are a former smoker, when did you quit?: 0 Cigars Per Day: 0 Information on smoking cessation initiated: Yes 'Breaking Loose' booklet given: 09/22/17 - Substance Abuse Hx (Audit-C & DAST Scrn) How often the patient has a drink containing alcohol: Never Score: In Men: 4 or > Positive; In Women: 3 or > Positive: 0 Screen Result (Pos requires Nsg. Audit-10AR): Negative In the last yr the pt used illegal drug/Rx for NonMed reason: No Score: Yes response is considered Positive: 0 Screen Result (Positive result requires Nsg. DAST-10): Negative *Physical Exam - Vital Signs Last Vital Signs Temp Pulse Resp BP Pulse Ox 97.8 F 85 18 105/65 98 03/21/20 14:35 03/21/20 14:35 03/21/20 14:35 03/21/20 14:35 03/21/20 14:35 Medical Decision Making - Medical Decision Making 03/21/20 16:33 A/P: Patient is a male with history of mesothelioma and EtOH abuse presented to the emergency department by EMS secondary to public intoxication. I will observe patient in the emergency department clinical sobriety is assessed. 03/21/20 20:39 Patient has a steady gait and is eaten a full meal without difficulty. I will discharge home to follow-up as needed I discussed the physical exam findings, ancillary test results and final diagnoses with the patient. I answered all of the patient's questions. The patient was satisfied with the care received and felt comfortable with the discharge plan and treatment plan. The patient will call their primary care physician within 24 hours to arrange follow-up and will return to the Emergency Department with any new, persistent or worsening symptoms. Portions of this note have been documented using voice recognition software. As a result, errors may occur in the talent associate process. Effort has been made to correct all grammatical and talent associate error, but some may have been missed which may produce sporadic inaccurate talent associate or nonsensical phrases. Discharge - Discharge Information Problems reviewed: Yes Clinical Impression/Diagnosis: Alcohol intoxication Condition: Fair Disposition: HOME - Admission No - Follow up/Referral Referrals: Lily Cornejo [Primary Care Provider] - - Patient Discharge Instructions Additional Instructions: You were seen in the emergency department. Please seek out alcohol abuse centers rehabilitations to help you stop drinking. Please follow up with your primary medical doctor within 1 week after discharge for follow up care and management. - Post Discharge Activity Work/Back to School Note: Back to Work
--- NOTE | 2020-03-21 20:21 | PDOC ---
*Physical Exam - Vital Signs Last Vital Signs Temp Pulse Resp BP Pulse Ox 97.8 F 85 18 105/65 98 03/21/20 14:35 03/21/20 14:35 03/21/20 14:35 03/21/20 14:35 03/21/20 19:01 - Physical Exam Patient was to be discharged after an observation period in the emergency depart ment. The patient was clinically sober and denies symptomatic complaints. Patient to be discharged from the emergency department. The patient walked on his own volition without assistance needed. Discharge - Discharge Information Problems reviewed: Yes Clinical Impression/Diagnosis: Alcohol intoxication Condition: Fair Disposition: HOME - Admission No - Follow up/Referral Referrals: Lily Cornejo [Primary Care Provider] - - Patient Discharge Instructions Additional Instructions: You were seen in the emergency department. Please seek out alcohol abuse centers rehabilitations to help you stop drinking. Please follow up with your primary medical doctor within 1 week after discharge for follow up care and management. - Post Discharge Activity Work/Back to School Note: Back to Work
== END 2020-03-21 20:59 | disposition home or self-care (01) ==
LOC: JER 14:31
DX: F10.129 Alcohol abuse with intoxication, unspecified (principal)
CPT/HCPCS: 99282-25

== ENCOUNTER 2020-03-22 00:34 | Emergency (ER) | payer OTHER ==
[2020-03-22 01:25] VITALS: TEMP 98.5; BMI 31.5
--- NOTE | 2020-03-22 03:08 | PDOC ---
History of Present Illness - General Chief Complaint: Back Pain Stated Complaint: BACK PAIN Time Seen by Provider: 03/22/20 03:05 - History of Present Illness Initial Comments: 03/22/20 03:08 HPI: 65 y/o M with hx of COVID-19, mesothelioma with long history of EtOH abuse, chronic back pain, and multiple ER visits and admission secondary to EtOH abuse is presenting to ED with same complaints of chronic back pain from earlier t sg. Pain is unchanged. No new trauma or numbness/tingling. Patient does not want any workup and refusing tylenol/motrin. No other chest pain, sob, palp, abd pain, GARCIA PMHx: as noted above ROS: as noted SHx: Denies tobacco use; no alcohol use; no rec drugs Allergies: see chart ROS: GENERAL/CONSTITUTIONAL: No fever or chills. No weakness. HEAD, EYES, EARS, NOSE AND THROAT: No change in vision. No ear pain or discharge. No sore throat. CARDIOVASCULAR: No chest pain or shortness of breath RESPIRATORY: No cough, wheezing, or hemoptysis. GASTROINTESTINAL: No nausea, vomiting, diarrhea or constipation. GENITOURINARY: No dysuria, frequency, or change in urination. MUSCULOSKELETAL: +back pain. SKIN: No rash NEUROLOGIC: No headache, vertigo, loss of consciousness, or change in strength/sensation. ENDOCRINE: No increased thirst. No abnormal weight change HEMATOLOGIC/LYMPHATIC: No anemia, easy bleeding, or history of blood clots. ALLERGIC/IMMUNOLOGIC: No hives or skin allergy. PE: GENERAL: Awake, alert, no acute distress HEAD: No signs of trauma, normocephalic, atraumatic EYES: EOMI, sclera anicteric, conjunctiva clear ENT: Auricles normal inspection, hearing grossly normal, nares patent, oropharynx clear without exudates. Moist mucosa NECK: Normal ROM, no lymphadenopathy LUNGS: No increased work of breathing, symmetrical chest rise HEART: Regular rate, regular rhythm, normal S1 and S2 ABDOMEN: Soft, nondistended, nontender. No guarding, no rebound. No masses. No CVAT MUSCULOSKELETAL: FROM NEUROLOGICAL: Cranial nerves II through XII grossly intact. Normal speech, stable gait, no focal sensorimotor deficits SKIN: Warm, Dry, normal turgor, no rashes or lesions noted Past History - Medical History Allergies/Adverse Reactions: Allergies Allergy/AdvReac Type Severity Reaction Status Date / Time Fish Containing Products Allergy Mild Swelling Verified 03/22/20 01:25 No Known Drug Allergies Allergy Verified 03/22/20 01:25 Home Medications: Ambulatory Orders NK [No Known Home Medication] 03/05/20 Anemia: No Asthma: No Cancer: Yes (mesothelioma lung cancer) Cardiac Disorders: No CVA: No COPD: No CHF: No DVT: No Dementia: No Diabetes: No Dialysis: No GI Disorders: No Disorders: No HTN: Yes (non compliant with meds.) Hypercholesterolemia: Yes Kidney Stones: No Liver Disease: Yes (ETOH abuse) Psychiatric Problems: Yes (ETOH abuse) Seizures: No Thyroid Disease: No Lung CA: Yes (Mesothelioma) - Surgical History Abdominal Surgery: No Appendectomy: No Cardiac Surgery: No Cholecystectomy: No Lung Surgery: No Neurologic Surgery: No Orthopedic Surgery: No - Reproductive History Testicular Surgery: No - Immunization History Td Vaccination: Yes TDAP Vaccination: Yes Immunization Up to Date: Yes - Psycho-Social/Smoking History Smoking Status: No Smoking History: Never smoked Have you smoked in the past 12 months: No Number of Cigarettes Smoked Daily: 0 If you are a former smoker, when did you quit?: 0 Cigars Per Day: 0 'Breaking Loose' booklet given: 09/22/17 - Substance Abuse Hx (Audit-C & DAST Scrn) How often the patient has a drink containing alcohol: 2-3 times / week Number of drinks the patient has on a typical day: 7 to 9 How often the patient has six or more drinks on one occasion: Daily or almost daily Score: In Men: 4 or > Positive; In Women: 3 or > Positive: 10 Screen Result (Pos requires Nsg. Audit-10AR): Positive In the last yr the pt used illegal drug/Rx for NonMed reason: No Score: Yes response is considered Positive: 0 Screen Result (Positive result requires Nsg. DAST-10): Negative *Physical Exam - Vital Signs Last Vital Signs Temp Pulse Resp BP Pulse Ox 98.5 F 92 H 16 116/54 L 96 03/22/20 00:40 03/22/20 00:40 03/22/20 00:40 03/22/20 00:40 03/22/20 00:40 Medical Decision Making - Medical Decision Making 03/22/20 03:20 65 y/o M with hx of COVID-19, mesothelioma with long history of EtOH abuse, chronic back pain, and multiple ER visits and admission secondary to EtOH abuse is presenting to ED with same complaints of chronic back pain from earlier today. Pain is unchanged. No new trauma or numbness/tingling. Patient does not want any workup and refusing tylenol/motrin. No other chest pain, sob, palp, abd pain, GARCIA. Pe unremarkable -pain control; patient refusing -dc with return pcxns; rec pcp f/u Discharge - Discharge Information Problems reviewed: Yes Clinical Impression/Diagnosis: Back pain Qualifiers: Back pain location: low back pain Chronicity: chronic Back pain laterality: unspecified Sciatica presence: unspecified whether sciatica present Qualified Code(s): M54.5 - Low back pain Condition: Fair Disposition: HOME - Follow up/Referral Referrals: Lily Cornejo [Primary Care Provider] - - Patient Discharge Instructions Patient Printed Discharge Instructions: DI for Low Back Pain Additional Instructions: Additional Instructions: Please return to the emergency department with any new or worsening symptoms or concerns. Please follow up with your primary care physician within 72 hours. - Post Discharge Activity
--- NOTE | 2020-03-22 03:15 | PDOC ---
Attending Attestation - Resident Resident Name: Bianca Frausto - ED Attending Attestation I have performed the following: I have examined & evaluated the patient, The case was reviewed & discussed with the resident, I agree w/resident's findings & plan, Exceptions are as noted - HPI HPI: 03/22/20 03:11 65 yo M h/o etoh abuse and chronic back pain p/w complaint of back pain unchanged from his chronic back pain. Patient very well known to ED and this provider for frequent visits for back pain and etoh intoxication. Patient has no other complaints. Denies any new numbness or weakness in extremities. Denies any new trauma. - Physicial Exam PE: 03/22/20 03:12 General: well appearing HEENT: NCAT Chest: CTAB, good air entry CVS: + s1 s2 Back: no midline tenderness, no stepoffs Neuro: awake, alert, responds to questions appropriately, strength preserved, no focal deficits - Medical Decision Making 03/22/20 03:13 65 yo M here with chronic back pain, unchanged, neurologically intact, no signs/symptoms concerning for cord compression. Plan: -pain control as needed -d/c with return precautions, recommend PMD f/u This clinical encounter is taking place during a federal and state health care emergency attributable to the novel [place]er Virus pandemic. The [place] of the Department of Health and Human Services has declared, pursuant to the Public Health Service Act 319F-3 (42 U.S[place]C. 247d-6d), that a covered persons activities related to medical countermeasures against COVID-19 will be immune from liability under Federal and State law. Discharge - Discharge Information Problems reviewed: Yes Clinical Impression/Diagnosis: Back pain Qualifiers: Back pain location: low back pain Chronicity: chronic Back pain laterality: unspecified Sciatica presence: unspecified whether sciatica present Qualified Code(s): M54.5 - Low back pain; G89.29 - Other chronic pain Condition: Fair - Follow up/Referral Referrals: Lily Cornejo [Primary Care Provider] - - Patient Discharge Instructions - Post Discharge Activity
[2020-03-22 06:50] VITALS: BP 118/78; PULSE 84
== END 2020-03-22 06:50 | disposition home or self-care (01) ==
LOC: JER 00:34
DX: M54.5 Low back pain (principal)
CPT/HCPCS: 99282-25

== ENCOUNTER 2020-03-25 17:32 | Emergency (ER) | payer OTHER ==
[2020-03-25 17:45] VITALS: BP 116/65; PULSE 79; TEMP 97.3; BMI 33.0
--- OUTSIDE RECORDS SUMMARY | 2020-03-25 18:33 | XMS ---
:1955 Author Organization [facility] Care Team Providers Name Role Phone VIANCA Sage Unavailable Unavailable [facility] Unavailable Unavailable ED STAFF PHYSICIAN Unavailable Unavailable ED STAFF PHYSICIAN Unavailable Unavailable DIAZX YAN Unavailable Unavailable WYATT Unavailable Unavailable NANCY Heredia Unavailable Unavailable ED STAFF PHYSICIAN Unavailable Unavailable ED STAFF PHYSICIAN Unavailable Unavailable ED STAFF PHYSICIAN Unavailable Unavailable PAULINO Ellis Unavailable Unavailable ED STAFF PHYSICIAN Unavailable Unavailable ED STAFF PHYSICIAN Unavailable Unavailable KELLI LUTZTAN Unavailable Unavailable [facility] Unavailable Unavailable ED STAFF PHYSICIAN Unavailable Unavailable CLEMENTE RAMOS Unavailable Unavailable ED STAFF PHYSICIAN Unavailable Unavailable MD DIPTI Unavailable Unavailable ED STAFF PHYSICIAN Unavailable Unavailable Alona Agrawal MD Unavailable Unavailable Alona Agrawal MD Unavailable Unavailable Alona Agrawal MD Unavailable Unavailable Alona Agrawal MD Unavailable Unavailable Alona Agrawal MD Unavailable Unavailable Alona Agrawal MD Unavailable Unavailable Alona Agrawal MD Unavailable Unavailable ED STAFF PHYSICIAN Unavailable Unavailable FAVIO MONROY Unavailable Unavailable ED STAFF PHYSICIAN Unavailable Unavailable MD NADER Unavailable Unavailable EMERGENCY [...] is protected by Article 27-F of the [facility] Public Health law. If you continue you may haveaccess to information: Regarding HIV / AIDS; Provided by facilities licensed or operated by the [facility] Office of Mental Health; or Provided by the [facility] Office for People With Developmental Disabilities. If such information is present, then the following [facility] mandated warning applies: This information has been [...] law may result in a fine or nursing home sentence or both. A general authorization for the release of medical or other information is NOT sufficient authorization for further disclosure. Encounters Encounter Providers Location Date Indications Data Source(s ) Emergency Attender: ED STAFF H 03/24/2020 [facility] PHYSICIANAttender: 05:26:00 PM EDT [facility] STAFF ED STAFF - 03/24/2020 PHYSICIANAdmitter: 09:14:00 PM EDT ED STAFF PHYSICIANReferrer: STAFF ED STAFF PHYSICIAN Patient discharged. Emergency Attender: ED STAFF H 03/23/2020 09:54:00 PM [facility] PHYSICIANAttender: STAFF ED EDT - 03/24/2020 [facility] STAFF PHYSICIANAdmitter: ED 05:54:00 AM EDT STAFF PHYSICIANReferrer: ZUNASSIGNED Patient discharged. Emergency Attender: RONAN ED STAFF H 03/23/2020 05:47:00 PM [facility] PHYSICIANAttender: STAFF ED EDT - 03/23/2020 [facility] STAFF PHYSICIANAdmitter: 09:35:00 PM EDT RONAN ED STAFF PHYSICIANReferrer: ZUNASSIGNED Patient discharged. Emergency Attender: ED STAFF H 03/22/2020 06:46:00 PM [facility] PHYSICIANAttender: STAFF ED EDT - 03/23/2020 [facility] STAFF PHYSICIANAdmitter: ED 06:04:00 AM EDT STAFF PHYSICIANReferrer: ZUNASSIGNED Patient discharged. Outpatient Attender: [id number] [facility] 03/19/2020 06:09:28 PM I ([facility] EDT Collaborative) Patient admitted. Inpatient Attender: ZACK DIXON [id number]-HAL6 03/16/2020 05:57:0 0 [facility] HAttender: STAFF ED STAFF PM EDT - 03/20/2020 [facility] PHYSICIANAdmitter: ZACK 01:00:00 PM EDT VIANCA DIXON HReferrer: ZACK DIXON H Patient discharged. Emergency Attender: ED STAFF H 03/13/2020 10:53:00 PM [facility] PHYSICIANAttender: STAFF ED EDT - 03/14/2020 [facility] STAFF PHYSICIANAdmitter: ED 09:59:00 AM EDT STAFF PHYSICIANReferrer: ZUNASSIGNED Patient discharged. Emergency Attender: ED STAFF H 03/12/2020 11:27:00 PM [facility] PHYSICIANAttender: STAFF ED EDT - 03/13/2020 [facility] STAFF PHYSICIANAdmitter: ED 09:26:00 AM EDT STAFF PHYSICIANReferrer: ZUNASSIGNED Patient discharged. Emergency Attender: ED STAFF H 03/11/2020 07:35:00 PM [facility] PHYSICIANAttender: STAFF ED EDT - 03/12/2020 [facility] STAFF PHYSICIANAdmitter: ED 06:22:00 AM EDT STAFF PHYSICIANReferrer: STAFF ED STAFF PHYSICIAN Patient discharged. Emergency Attender: ED STAFF H 03/07/2020 12:09:00 AM [facility] PHYSICIANAttender: STAFF ED EDT - 03/07/2020 [facility] STAFF PHYSICIANAdmitter: ED 05:31:00 AM EDT STAFF PHYSICIANReferrer: ZUNASSIGNED Patient discharged. Emergency Attender: LITZY ED STAFF H-ER 03/05/2020 07:16:00 [facility] PHYSICIANAttender: STAFF ED PM EDT - 03/05/2020 [facility] STAFF PHYSICIANAdmitter: 08:52:00 PM EDT [facility] ED STAFF PHYSICIANReferrer: ZUNASSIGNED Patient discharged. Emergency Attender: ED STAFF H 03/03/2020 07:52:00 PM [facility] PHYSICIANAttender: STAFF ED EDT - 03/04/2020 [facility] STAFF PHYSICIANAdmitter: ED 06:50:00 AM EDT STAFF PHYSICIANReferrer: STAFF ED STAFF PHYSICIAN Patient discharged. Emergency Attender: JOSE ED STAFF 03/01/2020 12:31:00 PM [facility] PHYSICIANAttender: STAFF ED EDT - 03/01/2020 [facility] STAFF PHYSICIANAdmitter: 11:42:00 PM EDT RONAN ED STAFF PHYSICIANReferrer: ZUNASSIGNED Patient discharged. Emergency Attender: NANCY JOHNSON 02/29/2020 12:29:00 PM [facility] AAttender: STAFF ED STAFF EDT - 02/29/2020 [facility] PHYSICIANAdmitter: NANCY 06:19:00 PM EDT ALEX AReferrer: ZUNASSIGNED Patient discharged. Emergency Attender: LITZY ED STAFF 02/28/2020 08:42:00 PM [facility] PHYSICIANAttender: STAFF ED EDT - 02/29/2020 [facility] STAFF PHYSICIANAdmitter: LITZY 05:27:00 AM EDT ED STAFF PHYSICIANReferrer: ZUNASSIGNED Patient discharged. Emergency Attender: JOSE ED STAFF 02/28/2020 11:14:00 AM [facility] PHYSICIANAttender: STAFF ED EDT - 02/28/2020 [facility] STAFF PHYSICIANAdmitter: 07:32:00 PM EDT RONAN ED STAFF PHYSICIANReferrer: ZUNASSIGNED Patient discharged. Emergency Attender: ED STAFF 02/27/2020 08:25:00 PM [facility] PHYSICIANAttender: STAFF ED EDT - 02/28/2020 [facility] STAFF PHYSICIANAdmitter: ED 07:04:00 AM EDT STAFF PHYSICIANReferrer: ZUNASSIGNED Patient discharged. Inpatient Attender: LEWIS DUVAL-Nayeli 02[facility]16[facility]2020 [facility]:37[facility] RES[facility] EDT - [address] [place] [address] 10:27:00 PM EDT Patient discharged. Outpatient STV 02/16/2020 10:53:00 AM EDT - [address] [place] [address] 01:59:00 PM EDT Patient discharged. Emergency Attender: ED STAFF H 02/09/2020 09:43:00 PM [facility] PHYSICIANAttender: STAFF ED EDT - 02/10/2020 [facility] STAFF PHYSICIANAdmitter: ED 06:48:00 AM EDT STAFF PHYSICIANReferrer: ZUNASSIGNED Patient discharged. Emergency Attender: STAFF ED STAFF H 02/09/2020 02:45:00 AM [facility] PHYSICIAN EDT - 02/09/2020 06:55:00 Center AM EDT Patient discharged. Emergency Attender: LITZY ED STAFF H 02/04/2020 11:24:00 AM [facility] PHYSICIANAttender: STAFF ED EDT - 02/04/2020 [facility] STAFF PHYSICIANAdmitter: LITZY 03:35:00 PM EDT ED STAFF PHYSICIAN Patient discharged. Emergency Attender: ED STAFF 01/25/2020 06:06:00 PM [facility] PHYSICIANAttender: STAFF ED EDT - 01/26/2020 [facility] STAFF PHYSICIANAdmitter: ED 06:12:00 AM EDT STAFF PHYSICIAN Patient discharged. Emergency Attender: ED STAFF 01/24/2020 08:18:00 PM [facility] PHYSICIANAttender: STAFF ED EDT - 01/25/2020 [facility] STAFF PHYSICIANAdmitter: ED 06:04:00 AM EDT STAFF PHYSICIAN Patient discharged. Emergency Attender: JOSE ED STAFF 01/24/2020 01:40:00 PM [facility] PHYSICIANAttender: STAFF ED EDT - 01/24/2020 [facility] STAFF PHYSICIANAdmitter: 05:56:00 PM EDT RONAN ED STAFF PHYSICIAN Patient discharged. Emergency Attender: STAFF ED STAFF 01/20/2020 03:33:00 PM [facility] PHYSICIAN EDT - 01/20/2020 06:41:00 Ligu[place] PM EDT Patient discharged. Emergency Attender: JOSE ED STAFF 01/19/2020 11:13:00 AM [facility] PHYSICIANAttender: STAFF ED EDT - 01/19/2020 [facility] STAFF PHYSICIANAdmitter: 03:48:00 PM EDT RONAN ED STAFF PHYSICIAN Patient discharged. Emergency Attender: ED STAFF H 01/18/2020 09:44:00 PM [facility] PHYSICIANAttender: STAFF ED EDT - 01/19/2020 [facility] STAFF PHYSICIANAdmitter: ED 06:28:00 AM EDT STAFF PHYSICIAN Patient discharged. Outpatient Attender: [id number] [facility] 01/14/2020 01:13:05 PM I ([facility] EDT Collaborative) Patient admitted. Emergency Attender: JOSE ED STAFF 01/06/2020 01:03:00 PM [facility] PHYSICIANAttender: STAFF ED EDT - 01/06/2020 [facility] STAFF PHYSICIANAdmitter: 09:00:00 PM EDT RONAN ED STAFF PHYSICIAN Patient discharged. Emergency Attender: STAFF ED STAFF 01/05/2020 08:46:00 PM [facility] PHYSICIAN EDT - 01/06/2020 09:01:00 Center AM EDT Patient discharged. Emergency Attender: JOSE ED STAFF 01/05/2020 02:24:00 PM [facility] PHYSICIANAttender: STAFF ED EDT - 01/05/2020 [facility] STAFF PHYSICIANAdmitter: 05:02:00 PM EDT RONAN ED STAFF PHYSICIAN Patient discharged. Emergency Attender: STAFF ED STAFF 01/03/2020 08:50:00 PM [facility] PHYSICIAN EDT - 01/04/2020 06:32:00 Center AM EDT Patient discharged. Emergency Attender: ED STAFF 12/30/2019 08:35:00 PM [facility] PHYSICIANAttender: STAFF ED EDT - 12/31/2019 [facility] STAFF PHYSICIANAdmitter: ED 06:54:00 AM EDT STAFF PHYSICIAN Patient discharged. Emergency Attender: ED STAFF 12/30/2019 04:36:00 PM [facility] PHYSICIANAttender: STAFF ED EDT - 12/31/2019 [facility] STAFF PHYSICIANAdmitter: ED 06:55:00 AM EDT STAFF PHYSICIAN Patient discharged. Emergency Attender: LITZY ED STAFF 12/29/2019 03:42:00 PM [facility] PHYSICIANAttender: STAFF ED EDT - 12/29/2019 [facility] STAFF PHYSICIANAdmitter: LITZY 08:14:00 PM EDT ED STAFF PHYSICIAN Patient discharged. Emergency Attender: STAFF ED STAFF 12/28/2019 10:09:00 PM [facility] PHYSICIAN EDT - 12/29/2019 06:04:00 Center AM EDT Patient discharged. Emergency Attender: ED STAFF 12/28/2019 01:13:00 AM [facility] PHYSICIANAttender: STAFF ED EDT - 12/28/2019 [facility] STAFF PHYSICIANAdmitter: ED 09:44:00 AM EDT STAFF PHYSICIAN Patient discharged. Emergency Attender: LITZY ED STAFF H 12/27/2019 06:29:00 PM [facility] PHYSICIANAttender: ED STAFF EDT - 12/27/2019 [facility] PHYSICIANAttender: STAFF ED 10:06:00 PM EDT STAFF PHYSICIANAdmitter: [facility] ED STAFF PHYSICIAN Patient discharged. Emergency Attender: JOSE ED STAFF H 12/27/2019 12:06:00 PM [facility] PHYSICIANAttender: LITZY ED EDT - 12/27/2019 [facility] STAFF PHYSICIANAttender: STAFF 10:05:00 PM EDT ED STAFF PHYSICIANAdmitter: RONAN ED STAFF PHYSICIAN Patient discharged. Emergency Attender: ED STAFF H-ER 12/24/2019 11:12:00 [facility] PHYSICIANAttender: STAFF ED PM EDT - 12/25/2019 [facility] STAFF PHYSICIANAdmitter: ED 05:53:00 AM EDT STAFF PHYSICIAN Patient discharged. Emergency Attender: LITZY ED STAFF H 12/22/2019 04:41:00 PM [facility] PHYSICIANAttender: STAFF ED EDT - 12/23/2019 [facility] STAFF PHYSICIANAdmitter: LITZY 06:19:00 AM EDT ED STAFF PHYSICIAN Patient discharged. Emergency Attender: LITZY ED STAFF H 12/20/2019 08:52:00 PM [facility] PHYSICIANAttender: STAFF ED EDT - 12/20/2019 [facility] STAFF PHYSICIANAdmitter: LITZY 11:29:00 PM EDT ED STAFF PHYSICIAN Patient discharged. Emergency Attender: ED STAFF H 12/18/2019 05:15:00 AM [facility] PHYSICIANAttender: STAFF ED EDT - 12/18/2019 [facility] STAFF PHYSICIANAdmitter: ED 06:04:00 AM EDT STAFF PHYSICIAN Patient discharged. Emergency Attender: LITZY ED STAFF H 12/17/2019 04:35:00 PM [facility] PHYSICIANAttender: STAFF ED EDT - 12/18/2019 [facility] STAFF PHYSICIANAdmitter: LITZY 03:16:00 AM EDT ED STAFF PHYSICIANReferrer: STAFF ED STAFF PHYSICIAN Patient discharged. Emergency Attender: ED STAFF H 12/16/2019 07:15:00 PM [facility] PHYSICIANAttender: STAFF ED EDT - 12/17/2019 [facility] STAFF PHYSICIANAdmitter: ED 06:39:00 AM EDT STAFF PHYSICIANReferrer: STAFF ED STAFF PHYSICIAN Patient discharged. Emergency Attender: ED STAFF H 12/16/2019 02:10:00 PM [facility] PHYSICIANAttender: STAFF ED EDT - 12/16/2019 [facility] STAFF PHYSICIANAdmitter: ED 05:38:00 PM EDT STAFF PHYSICIAN Patient discharged. Emergency Attender: JOSE ED STAFF H 12/14/2019 02:52:00 PM [facility] PHYSICIANAttender: ED STAFF EDT - 12/14/2019 [facility] PHYSICIANAttender: STAFF ED 09:24:00 PM EDT STAFF PHYSICIANAdmitter: RONAN ED STAFF PHYSICIAN Patient discharged. Emergency Attender: FRANCISCA ED STAFF 12/10/2019 06:39:00 PM [facility] PHYSICIANAttender: ED STAFF EDT - 12/10/2019 [facility] PHYSICIANAttender: STAFF ED 09:42:00 PM EDT STAFF PHYSICIANAdmitter: [facility] ED STAFF PHYSICIAN Patient discharged. Emergency Attender: NANCY JOHNSON 12/09/2019 02:37:00 PM [facility] AAttender: STAFF ED STAFF EDT - 12/09/2019 [facility] PHYSICIANAdmitter: NANCY 04:39:00 PM EDT ALEX A Patient discharged. Emergency Attender: ED STAFF 12/08/2019 10:33:00 PM [facility] PHYSICIANAttender: STAFF ED EDT - 12/09/2019 [facility] STAFF PHYSICIANAdmitter: ED 06:03:00 AM EDT STAFF PHYSICIAN Patient discharged. Emergency Attender: LITZY ED STAFF 12/08/2019 01:04:00 PM [facility] PHYSICIANAttender: STAFF ED EDT - 12/08/2019 [facility] STAFF PHYSICIANAdmitter: LITZY 04:42:00 PM EDT ED STAFF PHYSICIAN Patient discharged. Emergency Attender: STAFF ED STAFF 12/08/2019 01:26:00 AM [facility] PHYSICIAN EDT - 12/08/2019 03:22:00 Center AM EDT Patient discharged. Emergency Attender: ED STAFF 12/07/2019 02:19:00 PM [facility] PHYSICIANAttender: STAFF ED EDT - 12/07/2019 [facility] STAFF PHYSICIANAdmitter: ED 06:57:00 PM EDT STAFF PHYSICIAN Patient discharged. Emergency Attender: LITZY ED STAFF 12/06/2019 06:10:00 PM [facility] PHYSICIANAttender: STAFF ED EDT - 12/07/2019 [facility] STAFF PHYSICIANAdmitter: LITZY 12:43:00 AM EDT ED STAFF PHYSICIAN Patient discharged. Emergency Attender: ED STAFF 12/04/2019 08:59:00 PM [facility] PHYSICIANAttender: STAFF ED EDT - 12/05/2019 [facility] STAFF PHYSICIANAdmitter: ED 05:48:00 AM EDT STAFF PHYSICIANReferrer: STAFF ED STAFF PHYSICIAN Patient discharged. Emergency Attender: ED STAFF 12/03/2019 08:01:00 PM [facility] PHYSICIANAttender: STAFF ED EDT - 12/03/2019 [facility] STAFF PHYSICIANAdmitter: ED 10:34:00 PM EDT STAFF PHYSICIAN Patient discharged. Emergency Attender: NANCY JOHNSON 12/03/2019 01:49:00 PM [facility] AAttender: STAFF ED STAFF EDT - 12/03/2019 [facility] PHYSICIANAdmitter: NANCY 05:15:00 PM EDT [place] AReferrer: STAFF ED STAFF PHYSICIAN Patient discharged. Emergency Attender: STAFF ED STAFF 12/02/2019 08:09:00 PM [facility] PHYSICIAN EDT - 12/03/2019 07:06:00 [place] AM EDT Patient discharged. Emergency Attender: ED STAFF 11/30/2019 04:27:00 PM [facility] PHYSICIANAttender: STAFF ED EDT - 11/30/2019 [facility] STAFF PHYSICIANAdmitter: ED 11:51:00 PM EDT STAFF PHYSICIAN Patient discharged. Emergency Attender: STAFF ED STAFF 11/30/2019 03:04:00 AM [facility] PHYSICIAN EDT - 11/30/2019 07:04:00 [place] AM EDT Patient discharged. Emergency Attender: LITZY ED STAFF 11/29/2019 04:39:00 PM [facility] PHYSICIANAttender: STAFF ED EDT - 11/29/2019 [facility] STAFF PHYSICIANAdmitter: LITZY 10:06:00 PM EDT ED STAFF PHYSICIAN Patient discharged. Emergency Attender: ED STAFF H 11/25/2019 09:53:00 PM [facility] PHYSICIANAttender: STAFF ED EDT - 11/26/2019 [facility] STAFF PHYSICIANAdmitter: ED 06:08:00 AM EDT STAFF PHYSICIAN Patient discharged. Emergency Attender: ED STAFF H 11/25/2019 12:05:00 PM [facility] PHYSICIANAttender: Josue EDT - 11/25/2019 [facility] [place] MDAttender: STAFF 03:49:00 PM EDT ED STAFF PHYSICIANAdmitter: ED STAFF PHYSICIAN Patient discharged. Emergency Attender: STAFF ED STAFF 11/24/2019 10:37:00 PM [facility] PHYSICIAN EDT - 11/25/2019 01:28:00 Center AM EDT Patient discharged. Emergency Attender: JOSE ED STAFF 11/24/2019 02:04:00 PM [facility] PHYSICIANAttender: LITZY ED EDT - 11/24/2019 [facility] STAFF PHYSICIANAttender: STAFF 05:13:00 PM EDT ED STAFF PHYSICIANAdmitter: RONAN ED STAFF PHYSICIAN Patient discharged. Emergency Attender: ED STAFF 11/23/2019 05:20:00 PM [facility] PHYSICIANAttender: STAFF ED EDT - 11/24/2019 [facility] STAFF PHYSICIANAdmitter: ED 05:19:00 AM EDT STAFF PHYSICIAN Patient discharged. Emergency Attender: LITZY ED STAFF 11/22/2019 08:30:00 PM [facility] PHYSICIANAttender: STAFF ED EDT - 11/23/2019 [facility] STAFF PHYSICIANAdmitter: LITZY 06:02:00 AM EDT ED STAFF PHYSICIAN Patient discharged. Emergency Attender: LITZY ED STAFF 11/22/2019 01:37:00 PM [facility] PHYSICIANAttender: STAFF ED EDT - 11/22/2019 [facility] STAFF PHYSICIANAdmitter: LITZY 05:57:00 PM EDT ED STAFF PHYSICIAN Patient discharged. Emergency Attender: LITZY ED STAFF 11/20/2019 03:54:00 PM [facility] PHYSICIANAttender: STAFF ED EDT - 11/20/2019 [facility] STAFF PHYSICIANAdmitter: LITZY 07:33:00 PM EDT ED STAFF PHYSICIAN Patient discharged. Emergency Attender: ED STAFF H 11/18/2019 01:25:00 PM [facility] PHYSICIANAttender: STAFF ED EDT - 11/19/2019 [facility] STAFF PHYSICIANAdmitter: ED 01:40:00 AM EDT STAFF PHYSICIAN Patient discharged. Emergency Attender: STAFF ED STAFF H 11/16/2019 08:42:00 PM [facility] PHYSICIAN EDT - 11/17/2019 05:38:00 Center AM EDT Patient discharged. Emergency Attender: ED STAFF H 11/16/2019 01:46:00 PM [facility] PHYSICIANAttender: ED STAFF EDT - 11/16/2019 [facility] PHYSICIANAttender: STAFF ED 05:41:00 PM EDT STAFF PHYSICIANAdmitter: ED STAFF PHYSICIAN Patient discharged. Emergency Attender: JOSE ED STAFF H 11/10/2019 04:25:00 PM [facility] PHYSICIANAttender: STAFF ED EDT - 11/10/2019 [facility] STAFF PHYSICIANAdmitter: 08:35:00 PM EDT RONAN ED STAFF PHYSICIAN Patient discharged. Emergency Attender: JOSE ED STAFF H 11/08/2019 02:38:00 PM [facility] PHYSICIANAttender: STAFF ED EDT - 11/08/2019 [facility] STAFF PHYSICIANAdmitter: 10:15:00 PM EDT RONAN ED STAFF PHYSICIAN Patient discharged. Emergency Attender: ED STAFF 11/07/2019 10:18:00 PM [facility] PHYSICIANAttender: STAFF ED EDT - 11/14/2019 [facility] STAFF PHYSICIANAdmitter: ED 12:48:00 AM EDT STAFF PHYSICIANReferrer: STAFF ED STAFF PHYSICIAN Patient discharged. Emergency Attender: NANCY JOHNSON 11/05/2019 01:32:00 PM [facility] AAttender: STAFF ED STAFF EDT - 11/05/2019 [facility] PHYSICIANAdmitter: NANCY 07:57:00 PM EDT ALEX A Patient discharged. Emergency Attender: STAFF ED STAFF 11/03/2019 09:29:00 PM [facility] Medical PHYSICIAN EDT - 11/03/2019 11:21:00 [place] PM EDT Patient discharged. Emergency Attender: ED STAFF 11/02/2019 07:07:00 PM [facility] PHYSICIANAttender: STAFF ED EDT - 11/03/2019 [facility] STAFF PHYSICIANAdmitter: ED 12:39:00 AM EDT STAFF PHYSICIAN Patient discharged. Emergency Attender: JOSE ED STAFF 11/01/2019 02:09:00 PM [facility] PHYSICIANAttender: STAFF ED EDT - 11/01/2019 [facility] STAFF PHYSICIANAdmitter: 09:18:00 PM EDT RONAN ED STAFF PHYSICIAN Patient discharged. Emergency Attender: ED STAFF H 10/31/2019 06:02:00 PM [facility] PHYSICIANAttender: ED STAFF EDT - 10/31/2019 [facility] PHYSICIANAttender: STAFF ED 10:38:00 PM EDT STAFF PHYSICIANAdmitter: ED STAFF PHYSICIAN Patient discharged. Emergency Attender: ED STAFF H 10/30/2019 02:58:00 PM [facility] PHYSICIANAttender: STAFF ED EDT - 10/31/2019 [facility] STAFF PHYSICIANAdmitter: ED 02:24:00 AM EDT STAFF PHYSICIAN Patient discharged. Emergency Attender: [facility] ED STAFF H 10/28/2019 08:51:00 PM [facility] PHYSICIANAttender: STAFF ED EDT - 10/29/2019 [facility] STAFF PHYSICIANAdmitter: LITZY 03:06:00 AM EDT ED STAFF PHYSICIAN Patient discharged. Emergency Attender: [facility] ED STAFF H 10/27/2019 06:36:00 PM [facility] PHYSICIANAttender: STAFF ED EDT - 10/27/2019 [facility] STAFF PHYSICIANAdmitter: LITZY 10:23:00 PM EDT ED STAFF PHYSICIAN Patient discharged. Emergency Attender: ED STAFF H 10/22/2019 06:02:00 PM [facility] PHYSICIANAttender: PAULINO EDT - 10/22/2019 [facility] PENELOPE Cabrera: STAFF ED 10:48:00 PM EDT STAFF PHYSICIANAdmitter: ED STAFF PHYSICIANReferrer: STAFF ED STAFF PHYSICIAN Patient discharged. Emergency Attender: ED STAFF 10/22/2019 01:07:00 AM [facility] PHYSICIANAttender: STAFF ED EDT - 10/22/2019 [facility] STAFF PHYSICIANAdmitter: ED 06:20:00 AM EDT STAFF PHYSICIAN Patient discharged. Emergency Attender: JOSE ED STAFF 10/21/2019 03:39:00 PM [facility] PHYSICIANAttender: STAFF ED EDT - 10/22/2019 [facility] STAFF PHYSICIANAdmitter: 12:14:00 AM EDT RONAN ED STAFF PHYSICIAN Patient discharged. Emergency Attender: STAFF ED STAFF 10/21/2019 12:18:00 AM [facility] PHYSICIAN EDT - 10/21/2019 07:03:00 Center AM EDT Patient discharged. Emergency Attender: ED STAFF H 10/19/2019 08:03:00 PM [facility] PHYSICIANAttender: STAFF ED EDT - 10/20/2019 [facility] STAFF PHYSICIANAdmitter: ED 06:09:00 AM EDT STAFF PHYSICIAN Patient discharged. Emergency Attender: ED STAFF H 10/18/2019 06:11:00 AM [facility] PHYSICIANAttender: STAFF ED EDT - 10/18/2019 [facility] STAFF PHYSICIANAdmitter: ED 09:49:00 PM EDT STAFF PHYSICIAN Patient discharged. Emergency Attender: ED STAFF 10/17/2019 08:24:00 PM [facility] PHYSICIANAttender: ED STAFF EDT - 10/17/2019 [facility] PHYSICIANAttender: STAFF ED 11:42:00 PM EDT STAFF PHYSICIANAdmitter: ED STAFF PHYSICIAN Patient discharged. Emergency Attender: JOSE ED STAFF 10/15/2019 01:27:00 PM [facility] PHYSICIANAttender: STAFF ED EDT - 10/15/2019 [facility] STAFF PHYSICIANAdmitter: 03:49:00 PM EDT RONAN ED STAFF PHYSICIAN Patient discharged. Emergency Attender: LITZY ED STAFF 10/13/2019 07:22:00 PM [facility] PHYSICIANAttender: STAFF ED EDT - 10/13/2019 [facility] STAFF PHYSICIANAdmitter: LITZY 10:35:00 PM EDT ED STAFF PHYSICIAN Patient discharged. Emergency Attender: JOSE ED STAFF 10/13/2019 07:53:00 AM [facility] PHYSICIANAttender: STAFF ED EDT - 10/13/2019 [facility] STAFF PHYSICIANAdmitter: 06:44:00 PM EDT RONAN ED STAFF PHYSICIAN Patient discharged. Emergency Attender: STAFF ED STAFF 10/12/2019 12:49:00 AM [facility] Medical PHYSICIAN EDT - 10/12/2019 02:10:00 Center AM EDT Patient discharged. Emergency Attender: LITZY ED STAFF 10/11/2019 02:37:00 PM [facility] PHYSICIANAttender: STAFF ED EDT - 10/11/2019 [facility] STAFF PHYSICIANAdmitter: LITZY 08:39:00 PM EDT ED STAFF PHYSICIAN Patient discharged. Outpatient Attender: [id number] [facility] 10/10/2019 07:26:38 AM [facility] ([facility] EDT Collaborative) Patient admitted. Outpatient Attender: [id number] [facility] 10/10/2019 07:26:35 AM [facility] ([facility] [facility] EDT Collaborative) Patient admitted. Emergency Attender: JOSE ED STAFF 10/06/2019 09:24:00 AM [facility] PHYSICIANAttender: STAFF ED EDT - 10/06/2019 [facility] STAFF PHYSICIANAdmitter: 11:20:00 AM EDT RONAN ED STAFF PHYSICIAN Patient discharged. Emergency Attender: STAFF ED STAFF H 10/05/2019 08:44:00 PM [facility] PHYSICIAN EDT - 10/06/2019 12:39:00 Center AM EDT Patient discharged. Inpatient Attender: TUYET PEREIRA H-EDIP 09/17/2019 11:20:00 [facility] TRISTANAttender: STAFF ED PM EDT - 09/19/2019 [facility] STAFF PHYSICIANAdmitter: 07:49:00 AM EDT TUYET PEREIRA TRISTANReferrer: TUYET BENZ Patient discharged. Emergency Attender: Josue Sage 09/17/2019 05:08: 00 PM [facility] MDAttender: STAFF ED STAFF EDT - 09/18/2019 [facility] PHYSICIANAdmitter: Josue 04:33:00 AM EDT Tanja MDReferrer: STAFF ED STAFF PHYSICIAN Patient discharged. Emergency Attender: STAFF ED STAFF 09/14/2019 08:44:00 PM [facility] PHYSICIAN EDT - 09/15/2019 09:09:00 Center AM EDT Patient discharged. Emergency Attender: LITZY ED STAFF 09/13/2019 07:30:00 PM [facility] PHYSICIANAttender: STAFF ED EDT - 09/14/2019 [facility] STAFF PHYSICIANAdmitter: LITZY 08:43:00 AM EDT ED STAFF PHYSICIAN Patient discharged. Emergency Attender: JOSE ED STAFF 09/13/2019 08:56:00 AM [facility] PHYSICIANAttender: STAFF ED EDT - 09/13/2019 [facility] STAFF PHYSICIANAdmitter: 01:13:00 PM EDT RONAN ED STAFF PHYSICIAN Patient discharged. Emergency Attender: STAFF ED STAFF 09/12/2019 08:31:00 PM [facility] Medical PHYSICIAN EDT - 09/13/2019 07:32:00 Center AM EDT Patient discharged. Emergency Attender: ED STAFF H 09/11/2019 08:42:00 PM [facility] PHYSICIANAttender: STAFF ED EDT - 09/12/2019 [facility] STAFF PHYSICIANAdmitter: ED 06:36:00 PM EDT STAFF PHYSICIANReferrer: STAFF ED STAFF PHYSICIAN Patient discharged. Emergency Attender: LITZY ED STAFF H 09/11/2019 04:08:00 PM [facility] PHYSICIANAttender: STAFF ED EDT - 09/11/2019 [facility] STAFF PHYSICIANAdmitter: LITZY 06:54:00 PM EDT ED STAFF PHYSICIAN Patient discharged. Emergency Attender: ED STAFF H 09/10/2019 04:50:00 PM [facility] PHYSICIANAttender: STAFF ED EDT - 09/11/2019 [facility] STAFF PHYSICIANAdmitter: ED 08:33:00 PM EDT STAFF PHYSICIANReferrer: STAFF ED STAFF PHYSICIAN Patient discharged. Emergency Attender: ED STAFF 09/08/2019 08:13:00 PM [facility] PHYSICIANAttender: STAFF ED EDT - 09/09/2019 [facility] STAFF PHYSICIANAdmitter: ED 08:40:00 AM EDT STAFF PHYSICIAN Patient discharged. Emergency Attender: STAFF ED STAFF 09/07/2019 10:06:00 PM [facility] PHYSICIAN EDT - 09/08/2019 08:44:00 Center AM EDT Patient discharged. Emergency Attender: JOSE ED STAFF 09/05/2019 07:50:00 AM [facility] PHYSICIANAttender: NANCY EDT - 09/07/2019 [facility] AAttender: STAFF ED 06:44:00 AM EDT STAFF PHYSICIANAdmitter: JOSE ED STAFF PHYSICIAN Patient discharged. Emergency Attender: STAFF ED STAFF 09/04/2019 10:01:00 PM [facility] PHYSICIANReferrer: STAFF ED EDT - 09/05/2019 [facility] STAFF PHYSICIAN 08:15:00 AM EDT Patient discharged. Emergency Attender: LITZY ED STAFF 09/04/2019 02:54:00 PM [facility] PHYSICIANAttender: STAFF ED EDT - 09/04/2019 [facility] STAFF PHYSICIANAdmitter: LITZY 08:59:00 PM EDT ED STAFF PHYSICIANReferrer: STAFF ED STAFF PHYSICIAN Patient discharged. Emergency Attender: STAFF ED STAFF 09/03/2019 08:39:00 PM [facility] PHYSICIANReferrer: STAFF ED EDT - 09/04/2019 [facility] STAFF PHYSICIAN 06:55:00 AM EDT Patient discharged. Emergency Attender: LITZY ED STAFF 09/02/2019 04:49:00 PM [facility] PHYSICIANAttender: ED STAFF EDT - 09/03/2019 [facility] PHYSICIANAttender: STAFF ED 12:12:00 AM EDT STAFF PHYSICIANAdmitter: LITZY ED STAFF PHYSICIAN Patient discharged. Outpatient Attender: [id number] 09/02/2019 07:16:17 AM I ([facility] EDT Collaborative) Patient admitted. Emergency Attender: ED STAFF H 09/01/2019 10:38:00 PM [facility] PHYSICIANAttender: STAFF ED EDT - 09/01/2019 [facility] STAFF PHYSICIANAdmitter: ED 11:35:00 PM EDT STAFF PHYSICIAN Patient discharged. Emergency Attender: JOSE ED STAFF H 09/01/2019 12:48:00 PM [facility] PHYSICIANAttender: LITZY ED EDT - 09/01/2019 [facility] STAFF PHYSICIANAttender: STAFF 09:37:00 PM EDT ED STAFF PHYSICIANAdmitter: JOSE ED STAFF PHYSICIAN Patient discharged. Emergency Attender: ED STAFF 08/31/2019 07:31:00 PM [facility] PHYSICIANAttender: STAFF ED EDT - 09/01/2019 [facility] STAFF PHYSICIANAdmitter: ED 04:06:00 AM EDT STAFF PHYSICIAN Patient discharged. Emergency Attender: NANCY JOHNSON 08/29/2019 08:10:00 PM [facility] AAttenthaddeus: STAFF ED STAFF EDT - 08/30/2019 [facility] PHYSICIANAdmitter: NANCY 08:39:00 AM EDT ALEX A Patient discharged. Emergency Attender: NNACY JOHNSON 08/28/2019 08:21:00 PM [facility] AAttenthaddeus: STAFF ED STAFF EDT - 08/29/2019 [facility] PHYSICIANAdmitter: NANCY 08:53:00 AM EDT ALEX AReferrer: STAFF ED STAFF PHYSICIAN Patient discharged. Emergency Attender: ED STAFF 08/27/2019 08:45:00 PM [facility] PHYSICIANAttender: STAFF ED EDT - 08/28/2019 [facility] STAFF PHYSICIANAdmitter: ED 01:42:00 AM EDT STAFF PHYSICIANReferrer: STAFF ED STAFF PHYSICIAN Patient discharged. Emergency Attender: ED STAFF H 08/27/2019 05:26:00 AM [facility] PHYSICIANAttender: NANCY ED[facility] - [facility] 04:41:00 PM EDT STAFF PHYSICIANAdmitter: ED STAFF PHYSICIAN Patient discharged. Emergency Attender: FRANCISCA ED STAFF H 08/25/2019 04:54:00 PM [facility] PHYSICIANAttender: LITZY ED EDT - 08/25/2019 [facility] STAFF PHYSICIANAttender: STAFF 07:49:00 PM EDT ED STAFF PHYSICIANAdmitter: [facility] ED STAFF PHYSICIAN Patient discharged. Emergency Attender: FRANCISCA ED STAFF H 08/24/2019 06:38:00 PM [facility] PHYSICIANAttender: STAFF ED EDT - 08/25/2019 [facility] STAFF PHYSICIANAdmitter: 05:59:00 AM EDT [facility] ED STAFF PHYSICIAN Patient discharged. Emergency Attender: [facility] ED STAFF H 08/23/2019 06:12:00 PM [facility] PHYSICIANAttender: STAFF ED EDT - 08/24/2019 [facility] STAFF PHYSICIAN 04:50:00 AM EDT Patient discharged. Emergency Attender: STAFF ED STAFF H 08/22/2019 08:59:00 PM [facility] Medical PHYSICIAN EDT - 08/23/2019 08:48:00 Center AM EDT Patient discharged. Emergency Attender: STAFF ED STAFF H 08/21/2019 09:12:00 PM [facility] PHYSICIANReferrer: STAFF ED EDT - 08/22/2019 [facility] STAFF PHYSICIAN 06:01:00 AM EDT Patient discharged. Emergency Attender: NANCY JOHNSON 08/20/2019 03:19:00 PM [facility] AAttender: STAFF ED STAFF EST - 08/20/2019 [facility] PHYSICIANAdmitter: NANCY 11:42:00 PM EST ALEX A Patient discharged. Emergency Attender: ED STAFF 08/19/2019 07:15:00 PM [facility] PHYSICIANAttender: STAFF ED EST - 08/20/2019 [facility] STAFF PHYSICIANAdmitter: ED 03:04:00 AM EST STAFF PHYSICIAN Patient discharged. Emergency Attender: NANCY Sage 08/19/2019 03:56:00 PM [facility] AAttender: STAFF ED STAFF EST - 08/19/2019 [facility] PHYSICIANAdmitter: NANCY 06:55:00 PM EST ALEX A Patient discharged. Emergency Attender: LITZY ED STAFF H 08/18/2019 03:54:00 PM [facility] PHYSICIANAttender: STAFF ED EST - 08/18/2019 [facility] STAFF PHYSICIANAdmitter: LITZY 10:23:00 PM EST ED STAFF PHYSICIAN Patient discharged. Emergency Attender: NANCY ALEX H 08/17/2019 02:27:00 PM [facility] AAttender: STAFF ED STAFF EST - 08/18/2019 [facility] PHYSICIANAdmitter: NANCY 08:39:00 AM EST ALEX A Patient discharged. Emergency Attender: STAFF ED STAFF H 08/17/2019 02:43:00 AM [facility] Medical PHYSICIAN EST - 08/17/2019 09:44:00 Center AM EST Patient discharged. Emergency Attender: EVA, 08/16/2019 03:33:00 EVAL [facility] RICHARDAttender: EMERGENCY PM EST [facility] SERVICE, [facility]Ad[facility]: LITZY ED STAFF 08/12/2019 05:29:00 PM [facility] PHYSICIANAttender: FRANCISCA ED EST - 08/13/2019 [facility] STAFF PHYSICIANAttender: STAFF 05:43:00 AM EST ED STAFF PHYSICIANAdmitter: LITZY ED STAFF PHYSICIAN Patient discharged. Emergency Attender: LITZY ED STAFF 08/11/2019 05:01:00 PM [facility] PHYSICIANAttender: STAFF ED EST - 08/12/2019 [facility] STAFF PHYSICIANAdmitter: LITZY 12:41:00 AM EST ED STAFF PHYSICIAN Patient discharged. Emergency Attender: ED STAFF 08/10/2019 10:37:00 PM [facility] PHYSICIANAttender: STAFF ED EST - 08/11/2019 [facility] STAFF PHYSICIANAdmitter: ED 01:01:00 AM EST STAFF PHYSICIAN Patient discharged. Emergency Attender: AGUILAR ED STAFF 08/10/2019 04:09:00 PM [facility] PHYSICIANAttender: STAFF ED EST - 08/10/2019 [facility] STAFF PHYSICIANAdmitter: AGUILAR 11:02:00 PM EST ED STAFF PHYSICIAN Patient discharged. Emergency Attender: ED STAFF 08/09/2019 07:25:00 PM [facility] PHYSICIANAttender: STAFF ED EST - 08/10/2019 [facility] STAFF PHYSICIANAdmitter: ED 09:58:00 AM EST STAFF PHYSICIAN Patient discharged. Emergency Attender: LEONEL ED STAFF 08/08/2019 04:28:00 PM [facility] PHYSICIANAttender: STAFF ED EST - 08/09/2019 [facility] STAFF PHYSICIANAdmitter: LEONEL 10:32:00 AM EST ED STAFF PHYSICIAN Patient discharged. Emergency Attender: ED STAFF H 08/06/2019 03:52:00 PM [facility] PHYSICIANAttender: ED STAFF EST - 08/07/2019 [facility] PHYSICIANAttender: STAFF ED 12:38:00 AM EST STAFF PHYSICIANAdmitter: ED STAFF PHYSICIAN Patient discharged. Emergency Attender: LEONEL ED STAFF 08/01/2019 06:41:00 PM [facility] PHYSICIANAttender: STAFF ED EST - 08/02/2019 [facility] STAFF PHYSICIANAdmitter: LEONEL 08:35:00 AM EST ED STAFF PHYSICIAN Patient discharged. Emergency Attender: STAFF ED STAFF 07/31/2019 11:25:00 PM [facility] PHYSICIAN EST - 08/01/2019 08:56:00 Center AM EST Patient discharged. Emergency Attender: LITZY ED STAFF 07/31/2019 05:39:00 PM [facility] PHYSICIANAttender: STAFF ED EST - 07/31/2019 [facility] STAFF PHYSICIANAdmitter: LITZY 07:38:00 PM EST ED STAFF PHYSICIANReferrer: STAFF ED STAFF PHYSICIAN Patient discharged. Emergency Attender: STAFF ED STAFF 07/30/2019 07:01:00 PM [facility] PHYSICIANReferrer: STAFF ED EST - 07/31/2019 [facility] STAFF PHYSICIAN 04:29:00 PM EST Patient discharged. Emergency Attender: STAFF ED STAFF 07/29/2019 09:45:00 PM [facility] PHYSICIAN EST - 07/30/2019 07:10:00 Center AM EST Patient discharged. Emergency Attender: LITZY ED STAFF 07/28/2019 02:39:00 PM [facility] PHYSICIANAttender: ED STAFF EST - 07/29/2019 [facility] PHYSICIANAttender: STAFF ED 01:25:00 AM EST STAFF PHYSICIANAdmitter: LITZY ED STAFF PHYSICIAN Patient discharged. Emergency Attender: JOSE ED STAFF 07/28/2019 03:16:00 AM [facility] PHYSICIANAttender: STAFF ED EST - 07/28/2019 [facility] STAFF PHYSICIANAdmitter: 10:10:00 AM EST JOSE ED STAFF PHYSICIAN Patient discharged. Emergency Attender: NANCY JOHNSON 07/27/2019 03:24:00 PM [facility] AAttender: STAFF ED STAFF [facility] - 07/27/2019 [facility] PHYSICIANAdmitter: NANCY 10:57:00 PM EST ALEX A Patient discharged. Emergency Attender: JOSE ED STAFF H 07/26/2019 02:36:00 PM [facility] PHYSICIANAttender: STAFF ED EST - 07/26/2019 [facility] STAFF PHYSICIANAdmitter: 06:36:00 PM EST RONAN ED STAFF PHYSICIAN Patient discharged. Emergency Attender: ED STAFF H 07/22/2019 12:21:00 AM [facility] PHYSICIANAttender: STAFF ED EST - 07/22/2019 [facility] STAFF PHYSICIANAdmitter: ED 01:50:00 AM EST STAFF PHYSICIAN Patient discharged. Emergency Attender: FRANCISCA ED STAFF 07/17/2019 07:28:00 PM [facility] PHYSICIANAttender: STAFF ED EST - 07/17/2019 [facility] STAFF PHYSICIANAdmitter: 10:56:00 PM EST [facility] ED STAFF PHYSICIANReferrer: STAFF ED STAFF PHYSICIAN Patient discharged. Emergency Attender: FRANCISCA ED STAFF 07/16/2019 03:07:00 PM [facility] PHYSICIANAttender: STAFF ED EST - 07/17/2019 [facility] STAFF PHYSICIANAdmitter: 03:19:00 AM EST [facility] ED STAFF PHYSICIAN Patient discharged. Emergency Attender: ED STAFF H-ER 07/15/2019 01:02:00 [facility] PHYSICIANAttender: STAFF ED AM EST - 07/15/2019 [facility] STAFF PHYSICIANAdmitter: ED 03:10:00 AM EST STAFF PHYSICIAN Patient discharged. Emergency Attender: JOSE ED STAFF 07/14/2019 07:29:00 AM [facility] PHYSICIANAttender: STAFF ED EST - 07/14/2019 [facility] STAFF PHYSICIANAdmitter: 12:19:00 PM EST RONAN ED STAFF PHYSICIAN Patient discharged. Emergency Attender: ED STAFF 07/13/2019 05:30:00 PM [facility] PHYSICIANAttender: STAFF ED EST - 07/14/2019 [facility] STAFF PHYSICIANAdmitter: ED 05:30:00 AM EST STAFF PHYSICIAN Patient discharged. Emergency Attender: STAFF ED STAFF 07/13/2019 03:03:00 AM [facility] PHYSICIAN EST - 07/13/2019 10:05:00 Liguori AM EST Patient discharged. Emergency Attender: STAFF ED STAFF 07/12/2019 09:37:00 PM [facility] PHYSICIAN EST - 07/13/2019 12:34:00 Center AM EST Patient discharged. Emergency Attender: JOSE ED STAFF H 07/12/2019 01:34:00 PM [facility] PHYSICIANAttender: STAFF ED EST - 07/12/2019 [facility] STAFF PHYSICIANAdmitter: 11:37:00 PM EST RONAN ED STAFF PHYSICIAN Patient discharged. Emergency Attender: STAFF ED STAFF 07/09/2019 10:13:00 PM [facility] PHYSICIANReferrer: STAFF ED EST - 07/09/2019 [facility] STAFF PHYSICIAN 11:20:00 PM EST Patient discharged. Emergency Attender: ED STAFF 07/09/2019 11:25:00 AM [facility] PHYSICIANAttender: STAFF ED EST - 07/09/2019 [facility] STAFF PHYSICIANAdmitter: ED 03:37:00 PM EST STAFF PHYSICIAN Patient discharged. Emergency Attender: STAFF ED STAFF 07/08/2019 08:14:00 PM [facility] PHYSICIAN EST - 07/09/2019 07:23:00 Center AM EST Patient discharged. Emergency Attender: LITZY ED STAFF 07/07/2019 07:49:00 PM [facility] PHYSICIANAttender: STAFF ED [facility] - 07/07/2019 [facility] STAFF PHYSICIANAdmitter: LITZY 09:07:00 PM EST ED STAFF PHYSICIAN Patient discharged. Emergency Attender: JOSE ED STAFF 07/07/2019 12:23:00 PM [facility] PHYSICIANAttender: STAFF ED EST - 07/07/2019 [facility] STAFF PHYSICIANAdmitter: 04:56:00 PM EST RONAN ED STAFF PHYSICIAN Patient discharged. Emergency Attender: Josue Mendez 07/06/2019 06:30: 00 PM [facility] MDAttender: STAFF ED STAFF [facility] - 07/07/2019 [facility] PHYSICIANAdmitter: Josue 02:40:00 AM EST [facility] [place] Patient discharged. Emergency Attender: STAFF ED STAFF 07/05/2019 10:18:00 PM [facility] PHYSICIAN EST - 07/06/2019 07:08:00 Center AM EST Patient discharged. Emergency Attender: NANCY JOHNSON 07/04/2019 05:56:00 PM [facility] AAttender: ED STAFF EST - 07/05/2019 [facility] PHYSICIANAttender: STAFF ED 09:10:00 AM EST STAFF PHYSICIANAdmitter: NANCY JOHNSON AReferrer: STAFF ED STAFF PHYSICIAN Patient discharged. Emergency Attender: STAFF ED STAFF 07/03/2019 10:40:00 PM [facility] PHYSICIANReferrer: STAFF ED [facility] - 07/04/2019 [facility] STAFF PHYSICIAN 06:45:00 AM EST Patient discharged. Emergency Attender: NANCY JOHNSON 07/02/2019 06:17:00 PM [facility] AAttender: STAFF ED STAFF [facility] - 07/02/2019 [facility] PHYSICIANAdmitter: NANCY 08:42:00 PM EST ALEX AReferrer: STAFF ED STAFF PHYSICIAN Patient discharged. Emergency Attender: ED STAFF 07/01/2019 11:08:00 PM [facility] PHYSICIANAttender: STAFF ED EST - 07/02/2019 [facility] STAFF PHYSICIANAdmitter: ED 04:14:00 AM EST STAFF PHYSICIAN Patient discharged. Emergency Attender: ED STAFF 07/01/2019 07:08:00 PM [facility] PHYSICIANAttender: STAFF ED [facility] - 07/01/2019 [facility] STAFF PHYSICIANAdmitter: ED 09:50:00 PM EST STAFF PHYSICIAN Patient discharged. Emergency Attender: STAFF ED STAFF 06/29/2019 09:17:00 PM [facility] PHYSICIAN [facility] - 06/30/2019 04:12:00 Center AM EST Patient discharged. Emergency Attender: STAFF ED STAFF 06/29/2019 03:02:00 AM [facility] PHYSICIAN [facility] - 06/29/2019 09:25:00 Center AM EST Patient discharged. Emergency Attender: STAFF ED STAFF 06/28/2019 09:08:00 PM [facility] Medical PHYSICIAN [facility] - 06/28/2019 11:20:00 Center PM EST Patient discharged. Emergency Attender: LITZY ED STAFF 06/28/2019 12:59:00 PM [facility] PHYSICIANAttender: STAFF ED [facility] - 06/28/2019 [facility] STAFF PHYSICIANAdmitter: LITZY 06:29:00 PM EST ED STAFF PHYSICIAN Patient discharged. Emergency Attender: ED STAFF 06/27/2019 11:57:00 PM [facility] PHYSICIANAttender: STAFF ED [facility] - 06/28/2019 [facility] STAFF PHYSICIANAdmitter: ED 02:12:00 AM EST STAFF PHYSICIAN Patient discharged. Emergency Attender: JOSE ED STAFF 06/27/2019 12:51:00 PM [facility] PHYSICIANAttender: STAFF ED EST - 06/27/2019 [facility] STAFF PHYSICIANAdmitter: 09:36:00 PM EST RONAN ED STAFF PHYSICIAN Patient discharged. Emergency Attender: ED STAFF 06/27/2019 03:59:00 AM [facility] PHYSICIANAttender: STAFF ED [facility] - 06/27/2019 [facility] STAFF PHYSICIANAdmitter: ED 06:26:00 AM EST STAFF PHYSICIAN Patient discharged. Emergency Attender: STAFF ED STAFF 06/24/2019 10:59:00 PM [facility] PHYSICIAN [facility] - 06/25/2019 07:44:00 Center AM EST Patient discharged. Emergency Attender: PAULINO Sage 06/24/2019 01:51:00 PM [facility] KAttender: STAFF ED STAFF [facility] - 06/24/2019 [facility] PHYSICIANAdmitter: PAULINO 10:37:00 PM EST PENELOPE K Patient discharged. Emergency Attender: LITZY ED STAFF 06/23/2019 04:58:00 PM [facility] PHYSICIANAttender: STAFF ED [facility] - 06/24/2019 [facility] STAFF PHYSICIANAdmitter: LITZY 02:50:00 AM EST ED STAFF PHYSICIAN Patient discharged. Emergency Attender: LITZY ED STAFF 06/16/2019 06:18:00 PM [facility] PHYSICIANAttender: STAFF ED [facility] - 06/16/2019 [facility] STAFF PHYSICIANAdmitter: LITZY 09:48:00 PM EST ED STAFF PHYSICIAN Patient discharged. Emergency Attender: STAFF ED STAFF 06/16/2019 05:45:00 AM [facility] PHYSICIAN [facility] - 06/16/2019 05:52:00 Ligu[place] AM EST Patient discharged. Emergency Attender: JOSE ED STAFF 06/16/2019 02:25:00 AM [facility] PHYSICIANAttender: STAFF ED [facility] - 06/16/2019 [facility] STAFF PHYSICIAN 09:02:00 AM EST Patient discharged. Emergency Attender: ED STAFF 06/15/2019 01:01:00 PM [facility] PHYSICIANAttender: STAFF ED [facility] - 06/15/2019 [facility] STAFF PHYSICIANAdmitter: ED 07:10:00 PM EST STAFF PHYSICIAN Patient discharged. Emergency Attender: LITZY ED STAFF 06/14/2019 08:05:00 PM [facility] PHYSICIANAttender: ED STAFF [facility] - 06/15/2019 [facility] PHYSICIANAttender: STAFF ED 06:52:00 AM EST STAFF PHYSICIANAdmitter: [facility] ED STAFF PHYSICIAN Patient discharged. Emergency Attender: ED STAFF H 06/13/2019 06:15:00 PM [facility] PHYSICIANAttender: FRANCISCA ED EST - 06/14/2019 [facility] STAFF PHYSICIANAttender: STAFF 05:26:00 AM EST ED STAFF PHYSICIANAdmitter: ED STAFF PHYSICIAN Patient discharged. Emergency Attender: CHANHUSEYIN ED STAFF H 06/12/2019 08:47:00 PM [facility] PHYSICIANAttender: STAFF ED EST - 06/12/2019 [facility] STAFF PHYSICIANAdmitter: 09:46:00 PM EST [facility] ED STAFF PHYSICIANReferrer: STAFF ED STAFF PHYSICIAN Patient discharged. Emergency Attender: [facility] ED STAFF H 06/12/2019 05:09:00 PM [facility] PHYSICIANAttender: [facility] ED EST - 06/12/2019 [facility] STAFF PHYSICIANAttender: STAFF 06:37:00 PM EST ED STAFF PHYSICIANAdmitter: [facility] ED STAFF PHYSICIANReferrer: STAFF ED STAFF PHYSICIAN Patient discharged. Emergency Attender: ED STAFF H 06/10/2019 05:55:00 PM [facility] PHYSICIANAttender: STAFF ED EST - 06/10/2019 [facility] STAFF PHYSICIAN 10:34:00 PM EST Patient discharged. Emergency Attender: LITZY ED STAFF 06/09/2019 08:54:00 PM [facility] PHYSICIANAttender: ED STAFF EST - 06/09/2019 [facility] PHYSICIANAttender: STAFF ED 10:57:00 PM EST STAFF PHYSICIANAdmitter: [facility] ED STAFF PHYSICIAN Patient discharged. Emergency Attender: LITZY ED STAFF 06/09/2019 06:18:00 PM [facility] PHYSICIANAttender: STAFF ED EST - 06/09/2019 [facility] STAFF PHYSICIANAdmitter: LITZY 07:46:00 PM EST ED STAFF PHYSICIAN Patient discharged. Emergency Attender: LITZY ED STAFF H 06/09/2019 02:23:00 PM [facility] PHYSICIANAttender: STAFF ED EST - 06/09/2019 [facility] STAFF PHYSICIANAdmitter: LITZY 06:43:00 PM EST ED STAFF PHYSICIAN Patient discharged. Emergency Attender: ED STAFF H 06/08/2019 08:07:00 PM [facility] PHYSICIANAttender: LITZY ED EST - 06/09/2019 [facility] STAFF PHYSICIANAttender: STAFF 08:46:00 AM EST ED STAFF PHYSICIANAdmitter: ED STAFF PHYSICIANReferrer: STAFF ED STAFF PHYSICIAN Patient discharged. Emergency Attender: LITZY ED STAFF H 06/07/2019 04:26:00 PM [facility] PHYSICIANAttender: STAFF ED EST - 06/07/2019 [facility] STAFF PHYSICIANAdmitter: LITZY 08:39:00 PM EST ED STAFF PHYSICIAN Patient discharged. Emergency Attender: LEONEL ED STAFF H 06/06/2019 06:19:00 PM [facility] PHYSICIANAttender: STAFF ED EST - 06/06/2019 [facility] STAFF PHYSICIANAdmitter: LEONEL 11:22:00 PM EST ED STAFF PHYSICIAN Patient discharged. Emergency Attender: JOSE ED STAFF H 06/06/2019 11:50:00 AM [facility] PHYSICIANAttender: STAFF ED EST - 06/06/2019 [facility] STAFF PHYSICIANAdmitter: 06:05:00 PM EST [facility] ED STAFF PHYSICIAN Patient discharged. Emergency Attender: STAFF ED STAFF H 06/05/2019 05:53:00 PM [facility] PHYSICIANReferrer: STAFF ED EST - 06/06/2019 [facility] STAFF PHYSICIAN 11:24:00 AM EST Patient discharged. Emergency Attender: ED STAFF H 06/03/2019 02:42:00 PM [facility] PHYSICIANAttender: STAFF ED EST - 06/03/2019 [facility] STAFF PHYSICIANAdmitter: ED 07:12:00 PM EST STAFF PHYSICIAN Patient discharged. Emergency Attender: STAFF ED STAFF 06/02/2019 03:47:00 PM [facility] Medical PHYSICIAN EST - 06/03/2019 06:24:00 Center AM EST Patient discharged. Emergency Attender: STAFF ED STAFF H-ER 06/01/2019 07:03:00 [facility] PHYSICIANAdmitter: STAFF ED PM EST - 06/02/2019 [facility] STAFF PHYSICIAN 09:42:00 AM EST Patient discharged. Emergency Attender: LEONEL ED STAFF H 06/01/2019 01:42:00 PM [facility] PHYSICIANAttender: STAFF ED EST - 06/01/2019 [facility] STAFF PHYSICIANAdmitter: LEONEL 01:45:00 PM EST ED STAFF PHYSICIAN Patient discharged. Emergency Attender: AGUILAR ED STAFF H 06/01/2019 01:37:00 PM [facility] PHYSICIANAttender: LEONEL ED EST - 06/01/2019 [facility] STAFF PHYSICIANAttender: STAFF 04:28:00 PM EST ED STAFF PHYSICIANAdmitter: AGUILAR ED STAFF PHYSICIAN Patient discharged. Emergency Attender: PAULINO Sage 05/31/2019 02:29:00 PM [facility] KAttender: STAFF ED STAFF EST - 05/31/2019 [facility] Center PHYSICIANAdmitter: PAULINO 08:32:00 PM EST PENELOPE Ellis Patient discharged. Emergency Attender: ED STAFF H 05/29/2019 02:39:00 PM [facility] PHYSICIANAttender: STAFF ED EST - 05/30/2019 [facility] STAFF PHYSICIANAdmitter: ED 07:02:00 AM EST STAFF PHYSICIAN Patient discharged. Emergency Attender: ED STAFF H 05/28/2019 09:23:00 PM [facility] PHYSICIANAttender: STAFF ED EST - 05/29/2019 [facility] STAFF PHYSICIANAdmitter: ED 07:28:00 AM EST STAFF PHYSICIANReferrer: STAFF ED STAFF PHYSICIAN Patient discharged. Emergency Attender: LEONEL ED STAFF H 05/28/2019 01:26:00 PM [facility] PHYSICIANAttender: STAFF ED EST - 05/29/2019 [facility] STAFF PHYSICIANAdmitter: LEONEL 01:06:00 AM EST ED STAFF PHYSICIAN Patient discharged. Emergency Attender: LEONEL ED STAFF H 05/24/2019 06:37:00 PM [facility] PHYSICIANAttender: STAFF ED EST - 05/25/2019 [facility] STAFF PHYSICIAN 10:33:00 AM EST Patient discharged. Emergency Attender: JOSE ED STAFF H 05/24/2019 12:04:00 PM [facility] PHYSICIANAttender: STAFF ED EST - 05/24/2019 [facility] STAFF PHYSICIANAdmitter: 09:12:00 PM EST JOSE ED STAFF PHYSICIAN Patient discharged. Emergency Attender: FRANCISCA ED STAFF H 05/22/2019 10:10:00 PM [facility] PHYSICIANAttender: STAFF ED EST - 05/23/2019 [facility] STAFF PHYSICIANAdmitter: 09:05:00 AM EST [facility] ED STAFF PHYSICIAN Patient discharged. Emergency Attender: LITZY ED STAFF H 05/22/2019 02:13:00 PM [facility] PHYSICIANAttender: ELICIAE ED EST - 05/23/2019 [facility] STAFF PHYSICIANAttender: STAFF 12:13:00 AM EST ED STAFF PHYSICIANAdmitter: LITZY ED STAFF PHYSICIAN Patient discharged. Emergency Attender: FRANCISCA ED STAFF H 05/21/2019 02:44:00 PM [facility] PHYSICIANAttender: LOENEL ED EST - 05/22/2019 [facility] STAFF PHYSICIANAttender: STAFF 12:01:00 AM EST ED STAFF PHYSICIANAdmitter: [facility] ST[facility]FF PHYSICIAN Patient discharged. Emergency Attender: ED STAFF H 05/20/2019 06:51:00 PM [facility] PHYSICIANAttender: STAFF ED EST - 05/21/2019 [facility] STAFF PHYSICIANAdmitter: ED 11:22:00 AM EST STAFF PHYSICIAN Patient discharged. Emergency Attender: ED STAFF H 05/19/2019 09:29:00 PM [facility] PHYSICIANAttender: STAFF ED EST - 05/20/2019 [facility] STAFF PHYSICIANAdmitter: ED 06:30:00 AM EST STAFF PHYSICIAN Patient discharged. Emergency Attender: AGUILAR ED STAFF H 05/18/2019 01:40:00 PM [facility] PHYSICIANAttender: STAFF ED EST - 05/18/2019 [facility] STAFF PHYSICIANAdmitter: AGUILAR 10:18:00 PM EST ED STAFF PHYSICIAN Patient discharged. Emergency Attender: STAFF ED STAFF H 05/17/2019 11:12:00 PM [facility] Medical PHYSICIAN EST - 05/18/2019 08:10:00 Center AM EST Patient discharged. Emergency Attender: JOSE ED STAFF H 05/17/2019 12:42:00 PM [facility] PHYSICIANAttender: LITZY ED EST - 05/17/2019 [facility] STAFF PHYSICIANAttender: STAFF 10:01:00 PM EST ED STAFF PHYSICIANAdmitter: JOSE ED STAFF PHYSICIAN Patient discharged. Emergency Attender: STAFF ED STAFF H 05/16/2019 08:04:00 PM [facility] PHYSICIANReferrer: STAFF ED EST - 05/17/2019 [facility] STAFF PHYSICIAN 08:38:00 AM EST Patient discharged. Emergency Attender: ED STAFF H 05/15/2019 04:42:00 PM [facility] PHYSICIANAttender: STAFF ED EST - 05/16/2019 [facility] STAFF PHYSICIANAdmitter: ED 08:39:00 AM EST STAFF PHYSICIANReferrer: STAFF ED STAFF PHYSICIAN Patient discharged. Emergency Attender: FRANCISCA ED STAFF H 05/14/2019 11:53:00 PM [facility] PHYSICIANAttender: STAFF ED EST - 05/15/2019 [facility] STAFF PHYSICIANAdmitter: 06:49:00 AM EST ELICIA ED STAFF PHYSICIAN Patient discharged. Emergency Attender: FRANCISCA ED STAFF H 05/14/2019 03:32:00 PM [facility] PHYSICIANAttender: STAFF ED EST - 05/14/2019 [facility] STAFF PHYSICIANAdmitter: 11:00:00 PM EST FRANCISCA ED STAFF PHYSICIAN Patient discharged. Inpatient Attender: RACHEL CORNEJO H-HAL5 05/07/2019 08:12:00 [facility] AKINOAttender: STAFF ED STAFF AM EST - 05/14/20 [facility] PHYSICIANAdmitter: AKINO 10:16:00 AM EST CLEMENTE OLSENOReferrer: RACHEL RAMOS Patient discharged. Emergency Attender: ED STAFF H 05/06/2019 05:37:00 PM [facility] PHYSICIANAttender: STAFF ED EST - 05/07/2019 [facility] STAFF PHYSICIANAdmitter: ED 04:16:00 AM EST STAFF PHYSICIAN Patient discharged. Emergency Attender: JOSE ED STAFF H 05/05/2019 04:09:00 PM [facility] PHYSICIANAttender: ED STAFF EST - 05/06/2019 [facility] PHYSICIANAttender: STAFF ED 09:14:00 AM EST STAFF PHYSICIANAdmitter: JOSE ED STAFF PHYSICIAN Patient discharged. Emergency Attender: STAFF ED STAFF H 05/04/2019 08:43:00 PM [facility] PHYSICIAN EST - 05/05/2019 06:47:00 Center AM EST Patient discharged. Emergency Attender: STAFF ED STAFF H 05/02/2019 03:18:00 PM [facility] PHYSICIAN EST - 05/02/2019 11:40:00 Center PM EST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 Center unspecified, W/O PERF OR EST without perforation ABSCESS W/O BLEED or abscess without bleeding R10.9 Unspecified UNSPECIFIED Diagnosis 08/08/2019 [facility] abdominal pain ABDOMINAL PAIN 04:28:00 PM [facility] Center EST M79.641 Pain in right hand PAIN IN RIGHT HAND Diagnosis 0 [facility] 03:03:00 AM Medical Cente r EST S60.221A Contusion of right CONTUSION OF RIGHT Diagnosis 0 [facility] hand, initial HAND, INITIAL 01:34:00 PM Medical Center encounter ENCOUNTER EST R60.9 Edema, unspecified EDEMA, UNSPECIFIED Diagnosis 0 [facility] 01:34:00 PM [facility] EST W01.0XXA Fall on same level FALL SAME LEV FROM Diagnosis 0 [facility] from slipping, SLIP/TRIP W/O 03:59:00 AM Medica l Center tripping and STRIKE AGAINST EST stumbling without OBJECT, INIT subsequent striking against object, initial encounter S63.614A Unspecified sprain UNSPECIFIED SPRAIN Diagnosis 0 [facility] of right ring OF RIGHT RING 03:59:00 AM Medical Center finger, initial FINGER, INITIAL EST encounter ENCOUNTER S63.616A Unspecified sprain UNSPECIFIED SPRAIN Diagnosis 0 [facility] [place] of right little OF RIGHT LITTLE 03:59:00 AM Med ical Center finger, initial FINGER, INITIAL EST encounter ENCOUNTER Z00.8 Encounter for other ENCOUNTER FOR Diagnosis 06/12/2019 [facility] [place] [facility] general examination OTHER GENERAL 08:47:00 PM [facility] EXAMINATION EST M25.512 Pain in left PAIN IN LEFT Diagnosis 06/09/2019 [facility] shoulder SHOULDER 06:18:00 PM Medical Cente r EST S80.212A Abrasion, left ABRASION, LEFT Diagnosis 06/09/2019 [facility] knee, initial KNEE, INITIAL 06:18:00 PM Medical Center encounter ENCOUNTER EST Y92.219 Unspecified school [employer] THE Diagnosis 9 [facility] as the place of PLACE OF 01:37:00 PM Medical Center occurrence of the OCCURRENCE OF THE EST external cause EXTERNAL CAUSE M25.562 Pain in left knee PAIN IN LEFT KNEE Diagnosis 06/01/2019 [facility] 01:37:00 PM Medical Cente r EST M25.561 Pain in right knee PAIN IN RIGHT KNEE Diagnosis 9 [facility] 01:37:00 PM Medical Cente r EST S01.81XA Laceration without LACERATION W/O Diagnosis 06/01/2019 [place] [facility] foreign body of FOREIGN BODY OF 01:37:00 PM [facility] other part of head, OTH PART OF HEAD, EST initial encounter INIT ENCNTR M25.569 Pain in unspecified PAIN IN Diagnosis 06/01/2019 [facility] knee UNSPECIFIED KNEE 01:37:00 PM Medical Center EST I16.0 Hypertensive HYPERTENSIVE Diagnosis 05/14/2019 [facility] urgency URGENCY 10:16:00 AM Medical Cente r EST Y90.0 Blood alcohol level BLOOD ALCOHOL Diagnosis 05/14/2019 [place] [facility] of less than 20 LEVEL OF LESS THAN 10:16:00 AM Medical Center mg/100 ml 20 MG/100 ML EST M25.519 Pain in unspecified PAIN IN Diagnosis 05/02/2019 [facility] shoulder UNSPECIFIED 03:18:00 PM Medical [facility] er SHOULDER EST Y92.[address] as the SIDEWALK THE Diagnosis 04/29/[address] of occurrence PLACE OF 02:53:00 AM [facility] of the external OCCURRENCE OF THE EST cause EXTERNAL CAUSE S42.031A Displaced fracture DISP FX OF LATERAL Diagnosis 9 [facility] of lateral end of END OF RIGHT 01:54:00 AM [facility] right clavicle, CLAVICLE, INIT FOR EST initial encounter CLOS FX for closed fracture F10.29 Alcohol dependence ALCOHOL DEPENDENCE Diagnosis 9 [facility] with unspecified WITH UNSPECIFIED 04:09:00 PM 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 Procedure and PROC/TRTMT NOT CRD Diagnosis 02/27/2019 Rafael dalal [place] treatment not OUT D/T PT LV BEF 04:55:00 PM [facility] carried out due to SEEN BY [facility] EDT patient leaving PROV prior to being seen by health care provider L60.0 Ingrowing nail INGROWING NAIL Diagnosis 02/15/2019 [facility] 01:28:00 PM [facility] [place] r EDT Z53.29 Procedure and PROC/TRTMT NOT CRD Diagnosis 01/26/2019 Rafael dalal [place] treatment not OUT BEC PT 09:40:00 AM Medical Ce nter carried out because DECISION FOR OTH EDT of patient's REASONS decision for other reasons N17.9 Acute kidney ACUTE KIDNEY Diagnosis 01/26/2019 [facility] failure, FAILURE, 09:40:00 AM [facility] [place] unspecified UNSPECIFIED EDT J69.0 Pneumonitis due to PNEUMONITIS DUE TO Diagnosis 9 [facility] inhalation of food INHALATION OF FOOD 09:40:00 AM Medical Center and vomit AND VOMIT EDT Z79.01 group home (current) HALF-WAY Diagnosis 01/26/2019 [facility] use of (CURRENT) USE OF 09:40:00 AM Medical [place] anticoagulants ANTICOAGULANTS EDT 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 Profile.[id number] Name Value Range Interpretation Description Data Sup porting Code Source(s) Document(s ) Aspartate 17-59 <content Saint aminotransferase styleCode="Bold"> [facility] [Enzymatic Aspartate Medical activity/volume] Aminotransferase Center in Serum or Plasma (AST) </content>39 IU/L<content styleCode="Italic s"> (17-59 IU/L)</content> Alkaline 38-126 <content [facility] phosphatase styleCode="Bold"> [facility] [Enzymatic Alkaline Medical activity/volume] Phosphatase (ALP) Cente r in Serum or Plasma </content>83 IU/L<content styleCode="Italic s"> (38-126 IU/L)</content> Alanine 7-50 <content [facility] aminotransferase styleCode="Bold"> [facility] [Enzymatic Alanine Medical activity/volume] Aminotransferase Center in Serum or Plasma (ALT) </content>18 IU/L<content styleCode="Italic s"> (7-50 IU/L)</content> Albumin 3.5-5.0 Below low <content Saint [Mass/volume] in normal styleCode="Bold"> [facility] Serum or Plasma Albumin Medical </content>3.0 Center G/DL L<content styleCode="Italic s"> (3.5-5.0 G/DL)</content> Bilirubin.total 0.2-1.3 <content Saint [Mass/volume] in styleCode="Bold"> [facility] hs Serum or Plasma Bilirubin Total Medical </content>0.7 Center MG/DL<content styleCode="Italic s"> (0.2-1.3 MG/DL)</content> ID Date Data Source HematologyRou.[id number] 03/20/2020 05:45:00 AM EDT Rafael nt [facility] 0400 Name Value Range Interpretation Description Data Sup porting Code Source(s) Document(s ) Leukocytes 4.4-11.0 <content Saint [#/volume] in styleCode="Bold [facility] Blood by ">White Blood Medical Automated count Cell Count Center </content>5.36 KCUMM<content styleCode="Ital ics"> (4.4-11.0 KCUMM)</content > Hemoglobin 13.5-17. Below low normal <content Saint [Mass/volume] in 5 styleCode="Bold [place] Blood ">Hemoglobin Medical </content>9.6 Center G/DL L<content styleCode="Ital ics"> (13.5-17.5 G/DL)</content> Erythrocytes 4.4-5.9 Below low normal <content Saint [#/volume] in styleCode="Bold [place] Blood by ">Red Blood Medical Automated count Cell Count Center </content>3.64 MCUMM L<content styleCode="Ital ics"> (4.4-5.9 MCUMM)</content > Erythrocyte mean 80.0-100 <content Saint corpuscular .0 styleCode="Bold [place] volume [Entitic ">Mean Medical volume] by Corpuscular Center Automated count Volume </content>84.9 FL<content styleCode="Ital ics"> (80.0-100.0 FL)</content> Erythrocyte mean 26.0-34. <content Saint corpuscular 0 styleCode="Bold [place] hemoglobin ">Mean Medical [Entitic mass] Corposcular Center by Automated Hemoglobin count </content>26.4 PG<content styleCode="Ital ics"> (26.0-34.0 PG)</content> Hematocrit 41.0-53. Below low normal <content Saint [Volume 0 styleCode="Bold [place] Fraction] of ">Hematocrit Medical Blood by </content>30.9 Center Automated count % L<content styleCode="Ital ics"> [...] </content>20.8 % H<content styleCode="Ital ics"> (11.5-14.5 %)</content> Platelet mean 8.0-11.0 <content Saint volume [Entitic styleCode="Bold [place] volume] in Blood ">Mean Platelet Medical by Automated Volume Center count </content>10.6 FL<content styleCode="Ital ics"> (8.0-11.0 FL)</content> Platelets 130-400 <content Saint [#/volume] in styleCode="Bold [place] Blood by ">Platelet Medical Automated count Count Center </content>131 KCUMM<content styleCode="Ital ics"> (130-400 KCUMM)</content > Neutrophils 36-66 Above high <content Saint [#/volume] in normal styleCode="Bold [place] Blood by ">Neutrophil Medical Automated count </content>69.4 Center % H<content styleCode="Ital ics"> (36-66 %)</content> UNK 1.6-7.3 <content Saint styleCode="Bold [place] ">Neutrophil Medical Count Center </content>3.72 KCUMM<content styleCode="Ital ics"> (1.6-7.3 KCUMM)</content > Lymphocytes 24.0-44. Below low normal <content Saint [#/volume] in 0 styleCode="Bold [place] Blood by ">Lymphocyte Medical Automated count </content>19.0 Center % L<content styleCode="Ital ics"> (24.0-44.0 %)</content> Monocytes 3.0-10.0 <content Saint [#/volume] in styleCode="Bold [place] Blood by ">Monocyte Medical Automated count </content>7.6 Center %<content styleCode="Ital ics"> (3.0-10.0 %)</content> UNK 1.0-4.8 <content Saint styleCode="Bold [place] ">Lymphocyte Medical Count Center </content>1.02 KCUMM<content styleCode="Ital ics"> (1.0-4.8 KCUMM)</content > UNK 0.2-0.9 <content Saint styleCode="Bold [place] ">Monocyte Medical Count Center </content>0.41 KCUMM<content styleCode="Ital ics"> (0.2-0.9 KCUMM)</content > Basophils 0.0-1.0 <content Saint [#/volume] in styleCode="Bold [place] Blood by ">Basophil Medical Automated count </content>0.6 Center %<content styleCode="Ital ics"> (0.0-1.0 %)</content> Eosinophils 0-5.0 <content Saint [#/volume] in styleCode="Bold [place] Blood by ">Eosinophil Medical Automated count </content>3.0 Center %<content styleCode="Ital ics"> (0-5.0 %)</content> UNK 0.0-0.6 <content Saint styleCode="Bold [place] ">Eosinophil Medical Count Center </content>0.16 KCUMM<content styleCode="Ital ics"> (0.0-0.6 KCUMM)</content > UNK [...] </content>0.03 KCUMM<content styleCode="Ital ics"> (0.0-0.3 KCUMM)</content > UNK < 1 <content Saint styleCode="Bold [place] ">Immature Medical Granulocyte Center Ratio </content>0.4 %<content styleCode="Ital ics"> (< 1 %)</content> ID Date Data Source GFR(Creatinine).[id number] 03/20/2020 05:45:00 AM EDT [facility] 0-0400 Name Value Range Interpretation Code Description Data Pebbles rce(s) Supporting Document(s ) UNK > 60 <content [facility] styleCode="Bold"> Medical Cent er EGFR </content>144 GFR<content styleCode="Italic s"> (> 60 GFR)</content> ID Date Data Source Coagulation 03/20/2020 05:45:00 AM [facility] ical Center Rout.[id number] EDT Name Value Range Interpretation Description Data Sup porting Code Source(s) Document(s ) UNK 9.0-13.0 <content Saint styleCode="Bold" [place] >Protime Medical </content>12.5 Center SEC<content styleCode="Itali cs"> (9.0-13.0 SEC)</content> INR in 0.80-1.2 <content Saint Platelet poor 0 styleCode="Bold" [place] plasma by >INR Medical Coagulation </content>1.13 Center assay #<content styleCode="Itali cs"> (0.80-1.20 #)</content> aPTT in 25.1-36. <content Saint Platelet poor 5 styleCode="Bold" [place] plasma by >Partial Medical Coagulation Thromboplastin Center assay Time </content>28.0 SEC<content styleCode="Itali cs"> (25.1-36.5 SEC)</content> ID Date Data Source CHMROUTINECCDA.[id number] 03/20/2020 05:45:00 AM EDT [facility] -0400 Name Value Range Interpretation Description Data Sup porting Code Source(s) Document(s ) UNK >= 1.0 <content Saint styleCode="Mac [place] d">AG Ratio Medical </content>1.2 Center <content styleCode="Zakia lics"> (>= 1.0 )</content> UNK 2.3-3.5 <content Saint styleCode="Mac [place] d">Globulin Medical </content>2.6 Center G/DL<content styleCode="Zakia lics"> (2.3-3.5 G/DL)</content > Magnesium 1.6-2.3 Below low normal <content Saint [Mass/volume] styleCode="[place] in Serum or d">Magnesium Medical Plasma </content>1.3 Center MG/DL L<content styleCode="Zakia lics"> (1.6-2.3 MG/DL)</conten t> Protein 6.3-8.2 Below low normal <content Saint [Mass/volume] styleCode="[place] in Serum or d">Total Medical Plasma Protein Center </content>5.6 G/DL L<content styleCode="Zakia lics"> (6.3-8.2 G/DL)</content > Phosphate 2.5-4.5 <content Saint [Mass/volume] styleCode="[place] in Serum or d">Phosphorus Medical Plasma </content>4.2 Center MG/DL<content styleCode="Zakia lics"> (2.5-4.5 MG/DL)</conten t> ID Date Data Source [facility].[id number] 03/20/2020 05:45:00 AM EDT [facility] Name Value Range Interpretation Description Data Sup porting Code Source(s) Document(s ) Chloride 98-107 <content Saint [Moles/volume] in styleCode="Bold"> [facility] Serum or Plasma Chloride Medical </content>102 Center MEQ/L<content styleCode="Italic s"> (98-107 MEQ/L)</content> Sodium 137-145 Below low <content Saint [Moles/volume] in normal styleCode="Bold"> [facility] Serum or Plasma Sodium Medical </content>136 Center MEQ/L L<content styleCode="Italic s"> (137-145 MEQ/L)</content> Potassium 3.5-5.3 Below lower <content Saint [Moles/volume] in panic limits styleCode="Bold"> [facility] Serum or Plasma Potassium Medical </content><conten Center t styleCode="Bold"> 3.0 MEQ/L LL</content><cont ent styleCode="Italic s"> (3.5-5.3 MEQ/L)</content> Glucose 74-106 <content Saint [Mass/volume] in styleCode="Bold"> [facility] Serum or Plasma Glucose Medical </content>94 Center MG/DL<content styleCode="Italic s"> (74-106 MG/DL)</content> Creatinine 0.5-1.3 <content Saint [Mass/volume] in styleCode="Bold"> [facility] Serum or Plasma Creatinine Medical </content>0.6 Center MG/DL<content styleCode="Italic s"> (0.5-1.3 MG/DL)</content> UNK 9-20 Below low <content Saint normal styleCode="Bold"> [place] BUN </content>6 Medical MG/DL L<content Center styleCode="Italic s"> (9-20 MG/DL)</content> Calcium 8.4-10. Below low <content Saint [Mass/volume] in 2 normal styleCode="Bold"> [facility] hs Serum or Plasma Calcium Medical </content>8.3 Center MG/DL L<content styleCode="Italic s"> (8.4-10.2 MG/DL)</content> Carbon dioxide, 22-30 <content Saint total styleCode="Bold"> [place] [Moles/volume] in Carbon Dioxide Medical Serum or Plasma </content>29 Center MEQ/L<content styleCode="Italic s"> (22-30 MEQ/L)</content> Alanine 7-50 <content Saint aminotransferase styleCode="Bold"> [facility] [Enzymatic Alanine Medical activity/volume] Aminotransferase Center in Serum or Plasma (ALT) </content>18 IU/L<content styleCode="Italic s"> (7-50 IU/L)</content> Alkaline 38-126 <content Saint phosphatase styleCode="Bold"> [place] [Enzymatic Alkaline Medical activity/volume] Phosphatase (ALP) Cente r in Serum or Plasma </content>83 IU/L<content styleCode="Italic s"> (38-126 IU/L)</content> Aspartate 17-59 <content [facility] aminotransferase styleCode="Bold"> [facility] [Enzymatic Aspartate Medical activity/volume] Aminotransferase Center in Serum or Plasma (AST) </content>39 IU/L<content styleCode="Italic s"> (17-59 IU/L)</content> UNK > [...] (0.2-1.3 MG/DL)</content> ID Date Data Source Liver 03/19/2020 05:30:00 AM EDT [facility] Profile.[id number] Name Value Range Interpretation Description Data Sup porting Code Source(s) Document(s ) Aspartate 17-59 <content [facility] aminotransferase styleCode="Bold"> [facility] [Enzymatic Aspartate Medical activity/volume] Aminotransferase Center in Serum or Plasma (AST) </content>32 IU/L<content styleCode="Italic s"> (17-59 IU/L)</content> Alkaline 38-126 <content Saint phosphatase styleCode="Bold"> [place] [Enzymatic Alkaline Medical activity/volume] Phosphatase (ALP) Cente r in Serum or Plasma </content>94 IU/L<content styleCode="Italic s"> (38-126 IU/L)</content> Alanine 7-50 [...] s"> (0.2-1.3 MG/DL)</content> ID Date Data Source HematologyRou.[id number] 03/19/2020 05:30:00 AM [facility] Name Value Range Interpretation Description Data Sup porting Code Source(s) Document(s ) Erythrocytes 4.4-5.9 Below low normal <content [facility] [#/volume] in styleCode="Bold [place] Blood by ">Red Blood Medical Automated count Cell Count Center </content>3.68 MCUMM L<content styleCode="Ital ics"> (4.4-5.9 MCUMM)</content > Leukocytes 4.4-11.0 <content [facility] [#/volume] in styleCode="Bold [place] Blood by ">White Blood Medical Automated count Cell Count Center </content>6.03 KCUMM<content styleCode="Ital ics"> (4.4-11.0 KCUMM)</content > Hemoglobin [...] [facility] Fraction] of ">Hematocrit Medical Blood by </content>30.7 [...] Cell Medical Automated count Distribution Center Width </content>20.2 % H<content styleCode="Ital ics"> (11.5-14.5 %)</content> Platelets 130-400 <content [facility] [#/volume] in styleCode="Bold [place] Blood by ">Platelet Medical Automated count Count Center </content>137 KCUMM<content styleCode="Ital ics"> (130-400 KCUMM)</content > Erythrocyte mean 26.0-34. Below low normal <content [facility] corpuscular 0 styleCode="Bold [place] hemoglobin ">Mean Medical [Entitic mass] Corposcular Center by Automated Hemoglobin count </content>25.8 PG L<content styleCode="Ital ics"> (26.0-34.0 PG)</content> Platelet mean 8.0-11.0 <content [facility] volume [Entitic styleCode="Bold [place] volume] in Blood ">Mean Platelet Medical by Automated Volume Center count </content>10.5 FL<content styleCode="Ital ics"> (8.0-11.0 FL)</content> Neutrophils 36-66 <content [facility] [#/volume] in styleCode="Bold [place] Blood by ">Neutrophil Medical Automated count </content>62.0 Center %<content styleCode="Ital ics"> (36-66 %)</content> UNK 1.0-4.8 <content [facility] styleCode="Bold [facility] ">Lymphocyte Medical Count Center </content>1.59 KCUMM<content styleCode="Ital ics"> (1.0-4.8 KCUMM)</content > Lymphocytes 24.0-44. <content [facility] [#/volume] in 0 styleCode="Bold [place] Blood by ">Lymphocyte Medical Automated count </content>26.4 Center %<content styleCode="Ital ics"> (24.0-44.0 %)</content> UNK 1.6-7.3 <content [facility] styleCode="Bold [place] ">Neutrophil Medical Count Center </content>3.74 KCUMM<content styleCode="Ital ics"> (1.6-7.3 KCUMM)</content > UNK 0.2-0.9 <content [facility] styleCode="Bold [place] ">Monocyte Medical Count Center </content>0.50 KCUMM<content styleCode="Ital ics"> (0.2-0.9 KCUMM)</content > UNK 0.0-0.6 <content [facility] styleCode="Bold [place] ">Eosinophil Medical Count Center </content>0.15 KCUMM<content styleCode="Ital ics"> (0.0-0.6 KCUMM)</content > Monocytes 3.0-10.0 <content [facility] [#/volume] in styleCode="Bold [place] Blood by ">Monocyte Medical Automated count </content>8.3 Center %<content styleCode="Ital ics"> (3.0-10.0 %)</content> Eosinophils 0-5.0 <content [facility] [#/volume] in styleCode="Bold [place] Blood by ">Eosinophil Medical Automated count </content>2.5 Center %<content styleCode="Ital ics"> (0-5.0 %)</content> UNK 0.0-0.3 <content [facility] styleCode="Bold [place] ">Basophil Medical Count Center </content>0.03 KCUMM<content styleCode="Ital ics"> (0.0-0.3 KCUMM)</content > UNK 0 <content [facility] styleCode="Bold [place] ">Nucleated Red Medical Blood Cell Center </content>0.0 /100<content styleCode="Ital ics"> (0 /100)</content> Basophils 0.0-1.0 <content [facility] [#/volume] in styleCode="Bold [facility] Blood by ">Basophil Medical Automated count </content>0.5 Center %<content styleCode="Ital ics"> (0.0-1.0 %)</content> UNK 0-0.1 <content [facility] styleCode="Bold [place] ">Immature Medical Granulocyte Center Count </content>0.02 KCUMM<content styleCode="Ital ics"> (0-0.1 KCUMM)</content > UNK 0.0 <content [facility] styleCode="Bold [place] ">Nucleated Red Medical Blood Cell Center Count </content>0.00 KCUMM<content styleCode="Ital ics"> (0.0 KCUMM)</content > UNK < 1 <content [facility] styleCode="Bold [place] ">Immature Medical Granulocyte Center Ratio </content>0.3 %<content styleCode="Ital ics"> (< 1 %)</content> ID Date Data Source GFR(Creatinine).[id number] 03/19/2020 05:30:00 AM EDT [facility] 0-0400 Name Value Range Interpretation Code Description Data Pebbles rce(s) Supporting Document(s ) UNK > 60 <content [facility] styleCode="Bold"> Medical Cent er EGFR </content>177 GFR<content styleCode="Italic s"> (> 60 GFR)</content> ID Date Data Source Coagulation 03/19/2020 05:30:00 AM [facility] Rout.[id number] EDT Name Value Range Interpretation Description Data Sup porting Code Source(s) Document(s ) UNK 9.0-13.0 Above high normal <content [facility] styleCode="Bold" [facility] >Protime Medical </content>13.1 Center SEC H<content styleCode="Itali cs"> (9.0-13.0 SEC)</content> INR in 0.80-1.2 <content [facility] Platelet poor 0 styleCode="Bold" [place] plasma by >INR Medical Coagulation </content>1.18 Center assay #<content styleCode="Itali cs"> (0.80-1.20 #)</content> aPTT in 25.1-36. Above high normal <content [facility] Platelet poor 5 styleCode="Bold" [place] plasma by >Partial Medical Coagulation Thromboplastin Center assay Time </content>40.5 SEC H<content styleCode="Itali cs"> (25.1-36.5 SEC)</content> ID Date Data Source CHMROUTINECCDA.[id number] 03/19/2020 05:30:00 AM EDT [facility] Name Value Range Interpretation Description Data Sup porting Code Source(s) Document(s ) UNK 2.3-3.5 <content [facility] styleCode="Mac [place] d">Globulin Medical </content>2.5 Center G/DL<content styleCode="Zakia lics"> (2.3-3.5 G/DL)</content > UNK >= 1.0 <content [facility] styleCode="Mac [place] d">AG Ratio Medical </content>1.3 Center <content styleCode="Zakia lics"> (>= 1.0 )</content> Phosphate 2.5-4.5 <content [facility] [Mass/volume] styleCode="Mac [place] in Serum or d">Phosphorus Medical Plasma </content>3.7 Center MG/DL<content styleCode="Zakia lics"> (2.5-4.5 MG/DL)</conten t> Magnesium 1.6-2.3 Below low normal <content [facility] [Mass/volume] styleCode="Mac Jacomes in Serum or d">Magnesium Medical Plasma </content>1.1 Center MG/DL L<content styleCode="Zakia lics"> (1.6-2.3 MG/DL)</conten t> Protein 6.3-8.2 Below low normal <content [facility] [Mass/volume] styleCode="Mac [place] in Serum or d">Total Medical Plasma Protein Center </content>5.7 G/DL L<content styleCode="Zakia lics"> (6.3-8.2 G/DL)</content > ID Date Data Source [facility].[id number] 03/19/2020 05:30:00 AM EDT [facility] Center Name Value Range Interpretation Description Data Sup porting Code Source(s) Document(s ) Sodium 137-145 Below low <content [facility] [Moles/volume] in normal styleCode="Bold"> [facility] Serum or Plasma Sodium Medical </content>135 Center MEQ/L L<content styleCode="Italic s"> (137-145 MEQ/L)</content> Potassium 3.5-5.3 Below lower <content [facility] [Moles/volume] in panic limits styleCode="Bold"> [facility]phs Serum or Plasma Potassium Medical </content><conten Center t styleCode="Bold"> 2.9 MEQ/L LL</content><cont ent styleCode="Italic s"> (3.5-5.3 MEQ/L)</content> UNK 9-20 Below low <content [facility] normal styleCode="Bold"> [facility] BUN </content>3 Medical MG/DL L<content Center styleCode="Italic s"> (9-20 MG/DL)</content> Chloride 98-107 <content [facility] [Moles/volume] in styleCode="Bold"> [facility] Serum or Plasma Chloride Medical </content>99 Center MEQ/L<content styleCode="Italic s"> (98-107 MEQ/L)</content> Carbon dioxide, 22-30 <content [facility] total styleCode="Bold"> [facility] [Moles/volume] in Carbon Dioxide Medical Serum or Plasma </content>29 Center MEQ/L<content styleCode="Italic s"> (22-30 MEQ/L)</content> Creatinine 0.5-1.3 <content [facility] [Mass/volume] in styleCode="Bold"> [facility] hs Serum or Plasma Creatinine Medical </content>0.5 Center MG/DL<content styleCode="Italic s"> (0.5-1.3 MG/DL)</content> Glucose 74-106 <content [facility] [Mass/volume] in styleCode="Bold"> [facility] Serum or Plasma Glucose Medical </content>91 Center MG/DL<content styleCode="Italic s"> (74-106 MG/DL)</content> Calcium 8.4-10. Below low <content [facility] [Mass/volume] in 2 normal styleCode="Bold"> [facility] Serum or Plasma Calcium Medical </content>8.3 Center MG/DL L<content styleCode="Italic s"> (8.4-10.2 MG/DL)</content> UNK > 60 <content [facility] styleCode="Bold"> [facility] EGFR Medical </content>177 Center GFR<content styleCode="Italic s"> (> 60 GFR)</content> Aspartate 17-59 <content [facility] aminotransferase styleCode="Bold"> [facility] [Enzymatic Aspartate Medical activity/volume] Aminotransferase Center in Serum or Plasma (AST) </content>32 IU/L<content styleCode="Italic s"> (17-59 IU/L)</content> Bilirubin.total 0.2-1.3 [...] Plasma </content>94 IU/L<content styleCode="Italic s"> (38-126 IU/L)</content> Albumin 3.5-5.0 Below low <content [facility] [Mass/volume] in normal styleCode="Bold"> [facility] hs Serum or Plasma Albumin Medical </content>3.2 Center G/DL L<content styleCode="Italic s"> (3.5-5.0 G/DL)</content> ID Date Data Source Liver 03/18/2020 06:51:00 AM EDT [facility] Profile.[id number] Name Value Range Interpretation Description Data Sup porting Code Source(s) Document(s ) Aspartate 17-59 <content [facility] aminotransferase styleCode="Bold"> [facility] [Enzymatic Aspartate Medical activity/volume] Aminotransferase Center in Serum or Plasma (AST) </content>31 IU/L<content styleCode="Italic s"> (17-59 IU/L)</content> Alkaline 38-126 <content [facility] phosphatase styleCode="Bold"> [facility] [Enzymatic Alkaline Medical activity/volume] Phosphatase (ALP) Cente r in Serum or Plasma </content>100 IU/L<content styleCode="Italic s"> (38-126 IU/L)</content> Alanine 7-50 <content [facility] aminotransferase styleCode="Bold"> [facility] [Enzymatic Alanine Medical activity/volume] Aminotransferase Center in Serum or Plasma (ALT) </content>17 IU/L<content styleCode="Italic s"> (7-50 IU/L)</content> Bilirubin.total 0.2-1.3 Above high <content [facility] [Mass/volume] in normal styleCode="Bold"> [facility] hs Serum or Plasma Bilirubin Total Medical </content>1.8 Center MG/DL H<content styleCode="Italic s"> (0.2-1.3 MG/DL)</content> Albumin 3.5-5.0 Below low <content [facility] [Mass/volume] in normal styleCode="Bold"> [facility] hs Serum or Plasma Albumin Medical </content>3.3 Center G/DL L<content styleCode="Italic s"> (3.5-5.0 G/DL)</content> ID Date Data Source HematologyRou.[id number] 03/18/2020 06:51:00 AM EDT [facility] 0400 Name Value Range Interpretation Description Data Sup porting Code Source(s) Document(s ) Leukocytes 4.4-11.0 <content [facility] [#/volume] in styleCode="Bold [place] Blood by ">White Blood Medical Automated count Cell Count Center </content>6.35 KCUMM<content styleCode="Ital ics"> (4.4-11.0 KCUMM)</content > Hemoglobin 13.5-17. Below low normal <content [facility] [Mass/volume] in 5 styleCode="Bold [place] Blood ">Hemoglobin Medical </content>9.8 Center G/DL L<content styleCode="Ital ics"> (13.5-17.5 G/DL)</content> Erythrocytes 4.4-5.9 Below low normal <content [facility] [#/volume] in styleCode="Bold [place] Blood by ">Red Blood Medical Automated count Cell Count Center </content>3.81 MCUMM L<content styleCode="Ital ics"> (4.4-5.9 MCUMM)</content > Hematocrit 41.0-53. Below low normal <content [facility] [Volume 0 styleCode="Bold [place] Fraction] of ">Hematocrit Medical Blood by </content>31.5 Center Automated count % L<content styleCode="Ital ics"> (41.0-53.0 %)</content> Erythrocyte mean 26.0-34. Below low normal <content [facility] corpuscular 0 styleCode="Bold [place] hemoglobin ">Mean Medical [Entitic mass] Corposcular Center by Automated Hemoglobin count </content>25.7 PG L<content styleCode="Ital ics"> (26.0-34.0 PG)</content> Erythrocyte mean 80.0-100 <content [facility] corpuscular .0 styleCode="Bold [place] volume [Entitic ">Mean Medical volume] by Corpuscular Center Automated count Volume </content>82.7 FL<content styleCode="Ital ics"> (80.0-100.0 FL)</content> Erythrocyte mean 32.0-37. Below low normal <content [facility] corpuscular 0 styleCode="Bold [place] hemoglobin ">Mean Corpus. Medical concentration Hgb Center [Mass/volume] by Concentration Automated count (MCHC) </content>31.1 G/DL L<content styleCode="Ital ics"> (32.0-37.0 G/DL)</content> Platelet mean 8.0-11.0 <content [facility] volume [Entitic styleCode="Bold [place] volume] in Blood ">Mean Platelet Medical by Automated Volume Center count </content>9.6 FL<content styleCode="Ital ics"> (8.0-11.0 FL)</content> Platelets 130-400 <content [facility] [#/volume] in styleCode="Bold [place] Blood by ">Platelet Medical Automated count Count Center </content>133 KCUMM<content styleCode="Ital ics"> (130-400 KCUMM)</content > Erythrocyte 11.5-14. Above high <content [facility] distribution 5 normal styleCode="Bold [place] width [Ratio] by ">Red Cell Medical Automated count Distribution Center Width </content>20.0 % H<content styleCode="Ital ics"> (11.5-14.5 %)</content> Neutrophils 36-66 Above high <content [facility] [#/volume] in normal styleCode="Bold [place] Blood by ">Neutrophil Medical Automated count </content>73.8 Center % H<content styleCode="Ital ics"> (36-66 %)</content> UNK 1.6-7.3 <content [facility] styleCode="Bold [place] ">Neutrophil Medical Count Center </content>4.69 KCUMM<content styleCode="Ital ics"> (1.6-7.3 KCUMM)</content > Lymphocytes 24.0-44. Below low normal <content [facility] [#/volume] in 0 styleCode="Bold [place] Blood by ">Lymphocyte Medical Automated count </content>14.5 Center % L<content styleCode="Ital ics"> (24.0-44.0 %)</content> UNK 0.2-0.9 <content [facility] styleCode="Bold [place] ">Monocyte Medical Count Center </content>0.58 KCUMM<content styleCode="Ital ics"> (0.2-0.9 KCUMM)</content > UNK 1.0-4.8 Below low normal <content [facility] styleCode="Bold [place] ">Lymphocyte Medical Count Center </content>0.92 KCUMM L<content styleCode="Ital ics"> (1.0-4.8 KCUMM)</content > Monocytes 3.0-10.0 <content [facility] [#/volume] in styleCode="Bold [place] Blood by ">Monocyte Medical Automated count </content>9.1 Center %<content styleCode="Ital ics"> (3.0-10.0 %)</content> Eosinophils 0-5.0 <content [facility] [#/volume] in styleCode="Bold [place] Blood by ">Eosinophil Medical Automated count </content>1.6 Center %<content styleCode="Ital ics"> (0-5.0 %)</content> UNK 0.0-0.6 <content [facility] styleCode="Bold [place] ">Eosinophil Medical Count Center </content>0.10 KCUMM<content styleCode="Ital ics"> (0.0-0.6 KCUMM)</content > Basophils 0.0-1.0 <content [facility] [#/volume] in styleCode="Bold [place] Blood by ">Basophil Medical Automated count </content>0.5 Center %<content styleCode="Ital ics"> (0.0-1.0 %)</content> UNK 0 <content [facility] styleCode="Bold [place] ">Nucleated Red Medical Blood Cell Center </content>0.0 /100<content styleCode="Ital ics"> (0 /100)</content> UNK 0.0-0.3 <content [facility] styleCode="Bold [place] ">Basophil Medical Count Center </content>0.03 KCUMM<content styleCode="Ital ics"> (0.0-0.3 KCUMM)</content > UNK [...] (< 1 %)</content> ID Date Data Source GFR(Creatinine).[id number] 03/18/2020 06:51:00 AM EDT [facility] 0-0400 Name Value Range Interpretation Code Description Data Pebbles rce(s) Supporting Document(s ) UNK > 60 <content [facility] styleCode="Bold"> Medical Cent er EGFR </content>229 GFR<content styleCode="Italic s"> (> 60 GFR)</content> ID Date Data Source Coagulation 03/18/2020 06:51:00 AM [facility] ical Center Rout.[id number] EDT Name Value Range Interpretation Description Data Sup porting Code Source(s) Document(s ) INR in 0.80-1.2 Above high normal <content [facility] Platelet poor 0 styleCode="Bold" [place] plasma by >INR Medical Coagulation </content>1.23 # Center assay H<content styleCode="Itali cs"> (0.80-1.20 #)</content> UNK 9.0-13.0 Above high normal <content styleCode="Bold" [place] >Protime Medical </content>13.7 Center SEC H<content styleCode="Itali cs"> (9.0-13.0 SEC)</content> aPTT in 25.1-36. Above high normal <content [facility] Platelet poor 5 styleCode="Bold" [facility] plasma by >Partial Medical Coagulation Thromboplastin Center assay Time </content>66.7 SEC H<content styleCode="Itali cs"> (25.1-36.5 SEC)</content> ID Date Data Source CHMROUTINECCDA.[id number] 03/18/2020 06:51:00 AM EDT [facility] -0400 Name Value Range Interpretation Description Data Sup porting Code Source(s) Document(s ) Magnesium 1.6-2.3 Below low normal <content [facility] [Mass/volume] styleCode="Mac Quiros in Serum or d">Magnesium Medical Plasma </content>1.1 Center MG/DL L<content styleCode="Zakia lics"> (1.6-2.3 MG/DL)</conten t> UNK 2.3-3.5 <content [facility] styleCode="Mac Jacomes d">Globulin Medical </content>2.8 Center G/DL<content styleCode="Zakia lics"> (2.3-3.5 G/DL)</content > Phosphate 2.5-4.5 <content [facility] [Mass/volume] styleCode="Mac Jacomes in Serum or d">Phosphorus Medical Plasma </content>3.1 Center MG/DL<content styleCode="Zakia lics"> (2.5-4.5 MG/DL)</conten t> UNK >= 1.0 <content [facility] styleCode="Mac Jacomes d">AG Ratio Medical </content>1.2 Center <content styleCode="Zakia lics"> (>= 1.0 )</content> Protein 6.3-8.2 Below low normal <content [facility] [Mass/volume] styleCode="Mac Jacomes in Serum or d">Total Medical Plasma Protein Center </content>6.1 G/DL L<content styleCode="Zakia lics"> (6.3-8.2 G/DL)</content > ID Date Data Source BloodBank.[id number] 03/18/2020 06:51:00 AM EDT [facility] Name Value Range Interpretation Code Description Data Pebbles rce(s) Supporting Document(s ) UNK <content [facility] styleCode="Bold" Medical Cente r >Blood Type </content>GROUP O (Reference Range: not available)
UNK NEGATIVE <content [facility] styleCode="Bold" Medical Cente r >Antibody Screen </content>NEGATI VE <content styleCode="Itali cs"> (NEGATIVE )</content> UNK <content [facility] styleCode="Bold" Medical Cente r >RH Type </content>POSITI VE (Reference Range: not available)
ID Date Data Source [facility].[id number] 03/18/2020 06:51:00 AM EDT [facility] Name Value Range Interpretation Description Data Sup porting Code Source(s) Document(s ) Sodium 137-145 Below low <content [facility] [Moles/volume] in normal styleCode="Bold"> [facility] Serum or Plasma Sodium Medical </content>134 Center MEQ/L L<content styleCode="Italic s"> (137-145 MEQ/L)</content> Potassium 3.5-5.3 Below lower <content [facility] [Moles/volume] in panic limits styleCode="Bold"> J osephs Serum or Plasma Potassium Medical </content><conten Center t styleCode="Bold"> 2.7 MEQ/L LL</content><cont ent styleCode="Italic s"> (3.5-5.3 MEQ/L)</content> Carbon dioxide, 22-30 <content [facility] total styleCode="Bold"> [facility] [Moles/volume] in Carbon Dioxide Medical Serum or Plasma </content>28 Center MEQ/L<content styleCode="Italic s"> (22-30 MEQ/L)</content> UNK 9-20 Below low <content [facility] normal styleCode="Bold"> [facility] BUN </content>3 Medical MG/DL L<content Center styleCode="Italic s"> (9-20 MG/DL)</content> Creatinine 0.5-1.3 Below low <content [facility] [Mass/volume] in normal styleCode="Bold"> [facility] hs Serum or Plasma Creatinine Medical </content>0.4 Center MG/DL L<content styleCode="Italic s"> (0.5-1.3 MG/DL)</content> Chloride 98-107 <content [facility] [Moles/volume] in styleCode="Bold"> [facility] Serum or Plasma Chloride Medical </content>99 Center MEQ/L<content styleCode="Italic s"> (98-107 MEQ/L)</content> Aspartate 17-59 <content [facility] aminotransferase styleCode="Bold"> [facility] hs [Enzymatic Aspartate Medical activity/volume] Aminotransferase Center in Serum or Plasma (AST) </content>31 IU/L<content styleCode="Italic s"> (17-59 IU/L)</content> Calcium 8.4-10. Below low <content [facility] [Mass/volume] in 2 normal styleCode="Bold"> Stephan hs Serum or Plasma Calcium Medical </content>8.0 Center MG/DL L<content styleCode="Italic s"> (8.4-10.2 MG/DL)</content> UNK > 60 <content [facility] styleCode="Bold"> [facility] EGFR Medical </content>229 Center GFR<content styleCode="Italic s"> (> 60 GFR)</content> Glucose 74-106 <content [facility] [Mass/volume] in styleCode="Bold"> Stephan hs Serum or Plasma Glucose Medical </content>104 Center MG/DL<content styleCode="Italic s"> (74-106 MG/DL)</content> Albumin 3.5-5.0 Below low <content [facility] [Mass/volume] in normal styleCode="Bold"> Stephan hs Serum or Plasma Albumin Medical </content>3.3 Center G/DL L<content styleCode="Italic s"> (3.5-5.0 G/DL)</content> Alanine 7-50 <content [facility] aminotransferase styleCode="Bold"> [facility] hs [Enzymatic Alanine Medical activity/volume] Aminotransferase Center in Serum or Plasma (ALT) </content>17 IU/L<content styleCode="Italic s"> (7-50 IU/L)</content> Bilirubin.total 0.2-1.3 Above high <content [facility] [Mass/volume] in normal styleCode="Bold"> [facility] hs Serum or Plasma Bilirubin Total Medical </content>1.8 Center MG/DL H<content styleCode="Italic s"> (0.2-1.3 MG/DL)</content> Alkaline 38-126 <content [facility] phosphatase styleCode="Bold"> [facility] [Enzymatic Alkaline Medical activity/volume] Phosphatase (ALP) Cente r in Serum or Plasma </content>100 IU/L<content styleCode="Italic s"> (38-126 IU/L)</content> ID Date Data Source Coagulation 03/17/2020 08:48:00 PM [facility] ical Center Rout.[id number] EDT Name Value Range Interpretation Description Data Sup porting Code Source(s) Document(s ) aPTT in 25.1-36. Above high normal <content [facility] Platelet poor 5 styleCode="Bold" [facility] plasma by >Partial Medical Coagulation Thromboplastin Center assay Time </content>90.0 SEC H<content styleCode="Itali cs"> (25.1-36.5 SEC)</content> ID Date Data Source Stools.[id number] 03/17/2020 03:45:00 PM EDT [facility] Name Value Range Interpretation Code Description Data Pebbles rce(s) Supporting Document(s ) UNK NEGATIVE <content [facility] styleCode="Bold" Medical Cente r >Guaiac, Occult Blood </content>NEGATI VE <content styleCode="Itali cs"> (NEGATIVE )</content> ID Date Data Source Liver 03/17/2020 10:30:00 AM EDT [facility] Profile.[id number] Name Value Range Interpretation Description Data Sup porting Code Source(s) Document(s ) Aspartate 17-59 <content [facility] aminotransferase styleCode="Bold"> [facility] hs [Enzymatic Aspartate Medical activity/volume] Aminotransferase Center in Serum or Plasma (AST) </content>38 IU/L<content styleCode="Italic s"> (17-59 IU/L)</content> Bilirubin.total 0.2-1.3 <content [facility] [Mass/volume] in styleCode="Bold"> Stephan hs Serum or Plasma Bilirubin Total Medical </content>0.9 Center MG/DL<content styleCode="Italic s"> (0.2-1.3 MG/DL)</content> Alkaline 38-126 <content [facility] phosphatase styleCode="Bold"> [facility] [Enzymatic Alkaline Medical activity/volume] Phosphatase (ALP) Cente r in Serum or Plasma </content>109 IU/L<content styleCode="Italic s"> (38-126 IU/L)</content> Alanine 7-50 <content [facility] aminotransferase styleCode="Bold"> [facility] hs [Enzymatic Alanine Medical activity/volume] Aminotransferase Center in Serum or Plasma (ALT) </content>18 IU/L<content styleCode="Italic s"> (7-50 IU/L)</content> Albumin 3.5-5.0 <content [facility] [Mass/volume] in styleCode="Bold"> Stephan hs Serum or Plasma Albumin Medical </content>3.6 Center G/DL<content styleCode="Italic s"> (3.5-5.0 G/DL)</content> ID Date Data Source HematologyRou.[id number] 03/17/2020 10:30:00 AM EDT [facility] 0400 Name Value Range Interpretation Description Data Sup porting Code Source(s) Document(s ) Erythrocytes 4.4-5.9 Below low normal <content [facility] [#/volume] in styleCode="Bold [place] Blood by ">Red Blood Medical Automated count Cell Count Center </content>3.26 MCUMM L<content styleCode="Ital ics"> (4.4-5.9 MCUMM)</content > Leukocytes 4.4-11.0 <content [facility] [#/volume] in styleCode="Bold [place] Blood by ">White Blood Medical Automated count Cell Count Center </content>4.65 KCUMM<content styleCode="Ital ics"> (4.4-11.0 KCUMM)</content > Hematocrit 41.0-53. Below low normal <content [facility] [Volume 0 styleCode="Bold [place] Fraction] of ">Hematocrit Medical Blood by </content>28.0 Center Automated count % L<content styleCode="Ital ics"> (41.0-53.0 %)</content> Erythrocyte mean 80.0-100 <content [facility] corpuscular .0 styleCode="Bold [place] volume [Entitic ">Mean Medical volume] by Corpuscular Center Automated count Volume </content>85.9 FL<content styleCode="Ital ics"> (80.0-100.0 FL)</content> Hemoglobin 13.5-17. Below low normal <content [facility] [Mass/volume] in 5 styleCode="[facility]old [place] Blood ">Hemoglobin Medical </content>8.5 Center G/DL L<content styleCode="Ital ics"> (13.5-17.5 G/DL)</content> Erythrocyte mean 26.0-34. <content [facility] corpuscular 0 styleCode="[facility] [place] hemoglobin ">Mean Medical [Entitic mass] Corposcular Center by Automated Hemoglobin count </content>26.1 PG<content styleCode="Ital ics"> (26.0-34.0 PG)</content> Erythrocyte mean 32.0-37. Below low normal <content [facility] corpuscular 0 styleCode="Bold [place] hemoglobin ">Mean Corpus. Medical concentration Hgb Center [Mass/volume] by Concentration Automated count (MCHC) </content>30.4 G/DL L<content styleCode="Ital ics"> (32.0-37.0 G/DL)</content> Platelets 130-400 Below low normal <content [facility] [#/volume] in styleCode="[facility]old [place] Blood by ">Platelet Medical Automated count Count Center </content>122 KCUMM L<content styleCode="Ital ics"> (130-400 KCUMM)</content > Platelet mean 8.0-11.0 <content [facility] volume [Entitic styleCode="Bold [place] volume] in Blood ">Mean Platelet Medical by Automated Volume Center count </content>9.7 FL<content styleCode="Ital ics"> (8.0-11.0 FL)</content> Erythrocyte 11.5-14. Above high <content [facility] distribution 5 normal styleCode="[facility]old [place] width [Ratio] by ">Red Cell Medical Automated count Distribution Center Width </content>20.1 % H<content styleCode="Ital ics"> (11.5-14.5 %)</content> UNK 1.6-7.3 <content [facility] styleCode="[facility] [place] ">Neutrophil Medical Count Center </content>3.32 KCUMM<content styleCode="Ital ics"> (1.6-7.3 KCUMM)</content > Neutrophils 36-66 Above high <content [facility] [#/volume] in normal styleCode="[facility] [place] Blood by ">Neutrophil Medical Automated count </content>71.5 Center % H<content styleCode="Ital ics"> (36-66 %)</content> UNK 1.0-4.8 Below low normal <content [facility] styleCode="[facility] [place] ">Lymphocyte Medical Count Center </content>0.89 KCUMM L<content styleCode="Ital ics"> (1.0-4.8 KCUMM)</content > Lymphocytes 24.0-44. Below low normal <content [facility] [#/volume] in 0 styleCode="[facility] [place] Blood by ">Lymphocyte Medical Automated count </content>19.1 Center % L<content styleCode="Ital ics"> (24.0-44.0 %)</content> UNK 0.2-0.9 <content [facility] styleCode="[facility] [place] ">Monocyte Medical Count Center </content>0.37 KCUMM<content styleCode="Ital ics"> (0.2-0.9 KCUMM)</content > Monocytes 3.0-10.0 <content [facility] [#/volume] in styleCode="[facility] [place] Blood by ">Monocyte Medical Automated count </content>8.0 Center %<content styleCode="Ital ics"> (3.0-10.0 %)</content> Eosinophils 0-5.0 <content [facility] [#/volume] in styleCode="[facility] [place] Blood by ">Eosinophil Medical Automated count </content>0.6 Center %<content styleCode="Ital ics"> (0-5.0 %)</content> UNK 0.0-0.6 <content [facility] styleCode="[facility] [place] ">Eosinophil Medical Count Center </content>0.03 KCUMM<content styleCode="Ital ics"> (0.0-0.6 KCUMM)</content > UNK 0.0-0.3 <content [facility] styleCode="[facility] [place] ">Basophil Medical Count Center </content>0.03 KCUMM<content styleCode="Ital ics"> (0.0-0.3 KCUMM)</content > Basophils 0.0-1.0 <content [facility] [#/volume] in styleCode="[facility] [place] Blood by ">Basophil Medical Automated count </content>0.6 Center %<content styleCode="Ital ics"> (0.0-1.0 %)</content> UNK 0 <content [facility] styleCode="[facility] [place] ">Nucleated Red Medical Blood Cell Center </content>0.0 /100<content styleCode="Ital ics"> (0 /100)</content> UNK 0-0.1 <content [facility] styleCode="[facility] [place] ">Immature Medical Granulocyte Center Count </content>0.01 KCUMM<content styleCode="Ital ics"> (0-0.1 KCUMM)</content > UNK 0.0 <content [facility] styleCode="[facility] [place] ">Nucleated Red Medical Blood Cell Center Count </content>0.00 KCUMM<content styleCode="Ital ics"> (0.0 KCUMM)</content > UNK < 1 <content [facility] styleCode="[facility] [place] ">Immature Medical Granulocyte Center Ratio </content>0.2 %<content styleCode="Ital ics"> (< 1 %)</content> UNK NORMAL <content [facility] styleCode="[facility] [place] ">Platelet Medical Estimate Center </content>PLT. SLIGHTLY DECREASED <content styleCode="Ital ics"> (NORMAL )</content> UNK NORMAL <content [facility] styleCode="Bold Ihsaan ">Polychromasia Medical </content>SLIGH Center T <content styleCode="Ital ics"> (NORMAL )</content> UNK NORMAL <content [facility] styleCode="Bold [place] ">Hypochromia Medical </content>IGH Center T <content styleCode="Ital ics"> (NORMAL )</content> UNK NORMAL <content [facility] styleCode="[facility] [place] ">RBC Medical Morphology Center </content>ABNOR MAL <content styleCode="Ital ics"> (NORMAL )</content> UNK NORMAL <content [facility] styleCode="[facility] [place] ">Anisocyte Medical </content>[facility] T <content styleCode="Ital ics"> (NORMAL )</content> UNK NORMAL <content [facility] styleCode="Bold [place] ">Macrocyte Medical </content>[facility] T <content styleCode="Ital ics"> (NORMAL )</content> UNK NORMAL <content [facility] styleCode="Bold [place] ">Microcyte Medical </content>[facility] T <content styleCode="Ital ics"> (NORMAL )</content> ID Date Data Source GFR(Creatinine).[id number] 03/17/2020 10:30:00 AM EDT [facility] 0-0400 Name Value Range Interpretation Code Description Data Pebbles rce(s) Supporting Document(s ) UNK > 60 <content [facility] styleCode="Bold"> Medical Cent er EGFR </content>144 GFR<content styleCode="Italic s"> (> 60 GFR)</content> ID Date Data Source ChemistrySpecia.[id number] 03/17/2020 10:30:00 AM EDT [facility] 0-0400 Name Value Range Interpretation Description Data Sup porting Code Source(s) Document(s ) Cobalamin 239-931 <content [facility] (Vitamin B12) styleCode="[facility] [Mass/volume] d">Vitamin B12 Medical in Serum or </content>265 Center Plasma PG/ML<content styleCode="Zakia lics"> (239-931 PG/ML)</conten t> Folate > 3.0 <content [facility] [Mass/volume] styleCode="Mac [place] in Serum or d">Folic Acid Medical Plasma </content>4.27 Center NG/ML<content styleCode="Zakia lics"> (> 3.0 NG/ML)</conten t> ID Date Data Source CHMROUTINECCDA.[id number] 03/17/2020 10:30:00 AM EDT [facility] -0400 Name Value Range Interpretation Description Data Sup porting Code Source(s) Document(s ) UNK 2.3-3.5 <content [facility] styleCode="Bold Medical ">Globulin Center </content>2.6 G/DL<content styleCode="Ital ics"> (2.3-3.5 G/DL)</content> Folate > 3.0 <content [facility] [Mass/volum styleCode="Bold Medical e] in Serum ">Folic Acid Center or Plasma </content>4.27 NG/ML<content styleCode="Ital ics"> (> 3.0 NG/ML)</content > UNK >= 1.0 <content [facility] styleCode="Bold Medical ">AG Ratio Center </content>1.4 <content styleCode="Ital ics"> (>= 1.0 )</content> Protein 6.3-8.2 Below low normal <content [facility] [Mass/volum styleCode="Bold Medical e] in Serum ">Total Protein Center or Plasma </content>6.2 G/DL L<content styleCode="Ital ics"> (6.3-8.2 G/DL)</content> ID Date Data Source CardiacMarkers.[id number] 03/17/2020 10:30:00 AM EDT [facility] -0400 Name Value Range Interpretation Description Data Sup porting Code Source(s) Document(s ) Troponin < 0.034 <content [facility] I.cardiac styleCode="[facility] [place] [Mass/volume ">Troponin I Medical ] in Serum </content>< Center or Plasma 0.012 NG/ML<content styleCode="Ital ics"> (< 0.034 NG/ML)</content > ID Date Data Source [facility].[id number] 03/17/2020 10:30:00 AM EDT [facility] Center Name Value Range Interpretation Description Data Sup porting Code Source(s) Document(s ) Sodium 137-145 <content [facility] [Moles/volume] in styleCode="Bold"> [facility] Serum or Plasma Sodium Medical </content>141 Center MEQ/L<content styleCode="Italic s"> (137-145 MEQ/L)</content> Chloride 98-107 <content [facility] [Moles/volume] in styleCode="Bold"> [facility] Serum or Plasma Chloride Medical </content>105 Center MEQ/L<content styleCode="Italic s"> (98-107 MEQ/L)</content> Potassium 3.5-5.3 Below low <content [facility] [Moles/volume] in normal styleCode="Bold"> [facility] Serum or Plasma Potassium Medical </content>3.2 Center MEQ/L L<content styleCode="Italic s"> (3.5-5.3 MEQ/L)</content> Creatinine 0.5-1.3 <content [facility] [Mass/volume] in styleCode="Bold"> [facility] hs Serum or Plasma Creatinine Medical </content>0.6 Center MG/DL<content styleCode="Italic s"> (0.5-1.3 MG/DL)</content> Glucose [...] </content>8.4 Center MG/DL<content styleCode="Italic s"> (8.4-10.2 MG/DL)</content> Alanine 7-50 <content [facility] aminotransferase styleCode="Bold"> [facility] [Enzymatic Alanine Medical activity/volume] Aminotransferase Center in Serum or Plasma (ALT) </content>18 IU/L<content styleCode="Italic s"> (7-50 IU/L)</content> UNK > [...] Plasma </content>109 IU/L<content styleCode="Italic s"> (38-126 IU/L)</content> Bilirubin.total 0.2-1.3 <content [facility] [Mass/volume] in styleCode="Bold"> [facility] Serum or Plasma Bilirubin Total Medical </content>0.9 Center MG/DL<content styleCode="Italic s"> (0.2-1.3 MG/DL)</content> ID Date Data Source CardiacMarkers.[id number] 03/17/2020 07:25:00 AM EDT [facility] -0400 Name Value Range Interpretation Description Data Sup porting Code Source(s) Document(s ) Troponin < 0.034 <content [facility] I.cardiac styleCode="[facility] [place] [Mass/volume ">Troponin I Medical ] in Serum </content>< Center or Plasma 0.012 NG/ML<content styleCode="Ital ics"> (< 0.034 NG/ML)</content > ID Date Data Source HematologyRou.[id number] 03/17/2020 07:06:00 AM EDT [facility] 0400 Name Value Range Interpretation Description Data Sup porting Code Source(s) Document(s ) Erythrocytes 4.4-5.9 Below low normal <content [facility] [#/volume] in styleCode="[facility] [place] Blood by ">Red Blood Medical Automated count Cell Count Center </content>3.84 MCUMM L<content styleCode="Ital ics"> (4.4-5.9 MCUMM)</content > Leukocytes 4.4-11.0 <content [facility] [#/volume] in styleCode="[facility] [place] Blood by ">White Blood Medical Automated count Cell Count Center </content>6.00 KCUMM<content styleCode="Ital ics"> (4.4-11.0 KCUMM)</content > Hematocrit [...] volume] by Corpuscular Center Automated count Volume </content>83.3 FL<content styleCode="Ital ics"> (80.0-100.0 FL)</content> Erythrocyte mean 26.0-34. Below low normal <content [facility] corpuscular 0 styleCode="[place] [place] hemoglobin ">Mean Medical [Entitic mass] Corposcular Center by Automated Hemoglobin count </content>25.8 PG L<content styleCode="Ital ics"> (26.0-34.0 PG)</content> Erythrocyte mean 32.0-37. Below low normal <content [facility] corpuscular 0 styleCode="[place] hemoglobin ">Mean Corpus. Medical concentration Hgb Center [Mass/volume] by Concentration Automated count (MCHC) </content>30.9 G/DL L<content styleCode="Ital ics"> (32.0-37.0 G/DL)</content> Platelet mean 8.0-11.0 <content [facility] volume [Entitic styleCode="Bold [place] volume] in Blood ">Mean Platelet Medical by Automated Volume Center count </content>10.3 FL<content styleCode="Ital ics"> (8.0-11.0 FL)</content> Platelets 130-400 <content [facility] [#/volume] in styleCode="[facility] [place] Blood by ">Platelet Medical Automated count Count Center </content>181 KCUMM<content styleCode="Ital ics"> (130-400 KCUMM)</content > Erythrocyte 11.5-14. Above high <content [facility] distribution 5 normal styleCode="[facility]old [place] width [Ratio] by ">Red Cell Medical Automated count Distribution Center Width </content>20.1 % H<content styleCode="Ital ics"> (11.5-14.5 %)</content> UNK 0 <content [facility] styleCode="[facility] [place] ">Nucleated Red Medical Blood Cell Center </content>0.0 /100<content styleCode="Ital ics"> (0 /100)</content> UNK 0.0 <content [facility] styleCode="[facility] [place] ">Nucleated Red Medical Blood Cell Center Count </content>0.00 KCUMM<content styleCode="Ital ics"> (0.0 KCUMM)</content > ID Date Data Source GFR(Creatinine).[id number] 03/17/2020 07:06:00 AM EDT [facility] 0-0400 Name Value Range Interpretation Code Description Data Pebbles rce(s) Supporting Document(s ) UNK > 60 <content [facility] styleCode="Bold"> Medical Cent er EGFR </content>144 GFR<content styleCode="Italic s"> (> 60 GFR)</content> ID Date Data Source CHMROUTINECCDA.[id number] 03/17/2020 07:06:00 AM EDT [facility] -0400 Name Value Range Interpretation Description Data Sup porting Code Source(s) Document(s ) Phosphate 2.5-4.5 <content [facility] [Mass/volume] styleCode="[facility] [place] in Serum or d">Phosphorus Medical Plasma </content>3.9 Center MG/DL<content styleCode="Zakia lics"> (2.5-4.5 MG/DL)</conten t> Magnesium 1.6-2.3 Below lower panic <content [facility] [Mass/volume] limits styleCode="Mac [place] in Serum or d">Magnesium Medical Plasma </content><con Center tent styleCode="Mac d">0.9 MG/DL LL</content><c ontent styleCode="Zakia lics"> (1.6-2.3 MG/DL)</conten t> ID Date Data Source [facility].[id number] 03/17/2020 07:06:00 AM EDT [facility] Name Value Range Interpretation Description Data Sup porting Code Source(s) Document(s ) Carbon 22-30 <content [facility] dioxide, total styleCode="Mac [place] [Moles/volume] d">Carbon Medical in Serum or Dioxide Center Plasma </content>22 MEQ/L<content styleCode="Zakia lics"> (22-30 MEQ/L)</conten t> Potassium 3.5-5.3 Below low normal <content [facility] [Moles/volume] styleCode="[place] in Serum or d">Potassium Medical Plasma </content>3.3 Center MEQ/L L<content styleCode="Zakia lics"> (3.5-5.3 MEQ/L)</conten t> Sodium 137-145 <content [facility] [Moles/volume] styleCode="[place] in Serum or d">Sodium Medical Plasma </content>141 Center MEQ/L<content styleCode="Zakia lics"> (137-145 MEQ/L)</conten t> Chloride 98-107 <content [facility] [Moles/volume] styleCode="[facility] [place] in Serum or d">Chloride Medical Plasma </content>106 Center MEQ/L<content styleCode="Zakia lics"> (98-107 MEQ/L)</conten t> Creatinine 0.5-1.3 <content [facility] [Mass/volume] styleCode="[place] in Serum or d">Creatinine Medical Plasma </content>0.6 Center MG/DL<content styleCode="Zakia lics"> (0.5-1.3 MG/DL)</conten t> UNK 9-20 Below low normal <content [facility] styleCode="[facility] [place] d">BUN Medical </content>7 Center MG/DL L<content styleCode="Zakia lics"> (9-20 MG/DL)</conten t> Calcium 8.4-10.2 <content [facility] [Mass/volume] styleCode="[place] in Serum or d">Calcium Medical Plasma </content>8.7 Center MG/DL<content styleCode="Zakia lics"> (8.4-10.2 MG/DL)</conten t> Glucose 74-106 Above high normal <content [facility] [Mass/volume] styleCode="[facility] [place] in Serum or d">Glucose Medical Plasma </content>119 Center MG/DL H<content styleCode="Zakia lics"> (74-106 MG/DL)</conten t> UNK > 60 <content [facility] styleCode="[facility] [place] d">EGFR Medical </content>144 Center GFR<content styleCode="Zakia lics"> (> 60 GFR)</content> ID Date Data Source [id number] 03/17/2020 12:00:00 AM EDT [facility] Name Value Range Interpretation Code Description Data Pebbles rce(s) Supporting Document(s ) 2019-nCoV [facility] RNA XXX CHERRI+probe- Imp This lab was ordered by [facility] and reported by [employer]. ID Date Data Source [id number] 02/11/2020 02:59:00 PM EDT [facility] Name Value Range Interpretation Description Data Sup porting Code Source(s) Document(s ) SARS [facility] coronavirus 2 RNA This lab was ordered by [facility] and reported by [facility]. ID Date Data Source [id number] 01/13/2020 11:43:00 PM EDT [facility] Name Value Range Interpretation Description Data Sup porting Code Source(s) Document(s ) SARS [facility] coronavirus 2 RNA This lab was ordered by [facility] and reported by [facility]. ID Date Data Source [id number] 01/11/2020 11:30:00 AM EDT [facility] Name Value Range Interpretation Description Data Sup porting Code Source(s) Document(s ) SARS [facility] coronavirus 2 RNA This lab was ordered by [facility] and reported by [facility]. ID Date Data Source HematologyRou.[id number] 12/30/2019 11:00:00 PM EDT [facility] 0400 Name Value Range Interpretation Description Data Sup porting Code Source(s) Document(s ) Erythrocytes 4.4-5.9 Below low normal <content [facility] [#/volume] in styleCode="Bold [facility] Blood by ">Red Blood Medical Automated count Cell Count Liguori </content>3.55 MCUMM L<content styleCode="Ital ics"> (4.4-5.9 MCUMM)</content > Leukocytes 4.4-11.0 <content [facility] [#/volume] in styleCode="Bold [place] Blood by ">White Blood Medical Automated count Cell Count Center </content>6.48 KCUMM<content styleCode="Ital ics"> (4.4-11.0 KCUMM)</content > Hematocrit 41.0-53. Below low normal <content [facility] [Volume 0 styleCode="Bold [place] Fraction] of ">Hematocrit Medical Blood by </content>30.7 [...] ics"> (8.0-11.0 FL)</content> ID Date Data Source GFR(Creatinine).[id number] 12/30/2019 11:00:00 PM EDT [facility] 0-0400 Name Value Range Interpretation Code Description Data Pebbles rce(s) Supporting Document(s ) UNK > 60 <content [facility] styleCode="Bold"> Medical Cent er EGFR </content>144 GFR<content styleCode="Italic s"> (> 60 GFR)</content> ID Date Data Source CHMROUTINECCDA.[id number] 12/30/2019 11:00:00 PM EDT [facility] -0400 Name Value Range Interpretation Description [...] (2.5-4.5 MG/DL)</conten t> ID Date Data Source [id number] 12/30/2019 11:00:00 PM EDT [facility] Name Value Range Interpretation [...] normal <content [facility] styleCode="Mac [place] d">BUN Medical </content>7 Center MG/DL L<content styleCode="Zakia [...] (> 60 GFR)</content> ID Date Data Source HematologyRou.[id number] 12/25/2019 12:50:00 AM EDT [facility] 0400 Name Value Range Interpretation Description [...] (0.0 KCUMM)</content > ID Date Data Source GFR(Creatinine).[id number] 12/25/2019 12:50:00 AM EDT [facility] 0-0400 Name Value Range Interpretation Code Description Data Pebbles rce(s) Supporting Document(s ) UNK > 60 <content [facility] styleCode="Bold"> Medical Cent er EGFR </content>178 GFR<content styleCode="Italic s"> (> 60 GFR)</content> ID Date Data Source CardiacMarkers.[id number] 12/25/2019 12:50:00 AM EDT [facility] -0400 Name Value Range Interpretation Description Data Sup porting Code Source(s) Document(s ) Troponin < 0.034 <content [facility] I.cardiac styleCode="[facility]old [place] [Mass/volume ">Troponin I Medical ] in Serum </content>< Center or Plasma 0.012 NG/ML<content styleCode="Ital ics"> (< 0.034 NG/ML)</content > ID Date Data Source BMP.[id number] 12/25/2019 12:50:00 AM EDT [facility] Name Value Range Interpretation Description [...] [place] in Serum or d">Calcium Medical Plasma </content>8.4 Center MG/DL<content styleCode="Zakia lics"> (8.4-10.2 MG/DL)</conten t> ID Date Data Source HematologyRou.[id number] 12/03/2019 08:37:00 PM EDT [facility] 0400 Name Value Range Interpretation Description [...] ics"> (NORMAL )</content> ID Date Data Source GFR(Creatinine).[id number] 12/03/2019 08:37:00 PM EDT [facility] 0-0400 Name Value Range Interpretation Code Description Data Pebbles rce(s) Supporting Document(s ) UNK > 60 <content [facility] styleCode="Bold"> Medical Cent er EGFR </content>178 GFR<content styleCode="Italic s"> (> 60 GFR)</content> ID Date Data Source CHMROUTINECCDA.[id number] 12/03/2019 08:37:00 PM EDT [facility] -0400 Name Value Range Interpretation Description Data Sup porting Code Source(s) Document(s ) Magnesium 1.6-2.3 Below low normal <content [facility] [Mass/volume] styleCode="Mac [place] in Serum or d">Magnesium Medical Plasma </content>1.5 Center MG/DL L<content styleCode="Zakia lics"> (1.6-2.3 MG/DL)</conten t> ID Date Data Source [facility].[id number] 12/03/2019 08:37:00 PM EDT [facility] Center Name Value Range Interpretation Description Data Sup porting Code Source(s) Document(s ) Sodium 137-145 <content [facility] [Moles/volume] styleCode="Mac [place] in Serum or d">Sodium Medical Plasma </content>143 Center MEQ/L<content styleCode="Zakia lics"> (137-145 MEQ/L)</conten t> Carbon 22-30 <content [...] (> 60 GFR)</content> ID Date Data Source [id number] 11/27/2019 11:55:00 AM EDT [facility] Name Value Range Interpretation Description Data Sup porting Code Source(s) Document(s ) SARS [facility] CORONAVIRUS 2 RNA This lab was ordered by [facility] and reported by [facility]. ID Date Data Source Liver 11/25/2019 12:40:00 PM EDT [facility] Profile.[id number] Name Value Range Interpretation Description Data Sup [...] Range: not available)
ID Date Data Source HematologyRou.[id number] 11/25/2019 12:40:00 PM EDT [facility] 0400 Name Value Range Interpretation Description [...] NORMAL <content [facility] styleCode="Bold [place] ">Microcyte Medical </content>[facility] T <content styleCode="Ital ics"> (NORMAL )</content> UNK NORMAL <content [facility] styleCode="Bold [place] ">Hypochromia Medical </content>[facility] T <content styleCode="Ital ics"> (NORMAL )</content> ID Date Data Source GFR(Creatinine).[id number] 11/25/2019 12:40:00 PM EDT [facility] 0-0400 Name Value Range Interpretation Code Description Data Pebbles rce(s) Supporting Document(s ) UNK <content [facility] styleCode="Bold"> Medical Cent er EGFR </content>Test not performed. GFR (Reference Range: not available)
ID Date Data Source Coagulation 11/25/2019 12:40:00 PM [facility] ical Center Rout.[id number] EDT Name Value Range Interpretation Description Data [...] cs"> (25.1-36.5 SEC)</content> ID Date Data Source CHMROUTINECCDA.[id number] 11/25/2019 12:40:00 PM EDT [facility] -0400 Name Value Range Interpretation Description Data Sup porting Code Source(s) Document(s ) UNK <content [facility] styleCode="Bold Medical ">Globulin Center </content>Test not performed. G/DL (Reference Range: not available)
UNK <content [facility] styleCode="Bold Medical ">AG Ratio Center </content>Test not performed. (Reference Range: not available)
Protein <content [facility] [Mass/volume styleCode="Bold Medical ] in Serum ">Total Protein Center or Plasma </content>Test not performed. G/DL (Reference Range: not available)
ID Date Data Source CardiacMarkers.[id number] 11/25/2019 12:40:00 PM EDT [facility] Name Value Range Interpretation Description Data Sup porting Code Source(s) Document(s ) Troponin < 0.034 <content [facility] I.cardiac styleCode="Bold [place] [Mass/volume ">Troponin I Medical ] in Serum </content>< Center or Plasma 0.012 NG/ML<content styleCode="Ital ics"> (< 0.034 NG/ML)</content > ID Date Data Source [facility].[id number] 11/25/2019 12:40:00 PM EDT [facility] Name Value Range Interpretation Description Data Sup porting Code Source(s) Document(s ) Sodium <content [facility] [Moles/volume] in styleCode="Bold"> [facility] Serum or Plasma Sodium Medical </content>Test Center not performed. MEQ/L (Reference Range: not available)
Potassium <content [facility] [Moles/volume] in styleCode="Bold"> [facility] Serum or Plasma Potassium Medical </content>Test Center [...] Range: not available)
ID Date Data Source [id number] 11/12/2019 10:10:00 AM EDT [facility] Name Value Range Interpretation Description Data Sup porting Code Source(s) Document(s ) SARS [facility] CORONAVIRUS 2 RNA This lab was ordered by [facility] and reported by [facility]. ID Date Data Source [id number] 10/06/2019 09:50:00 AM EDT [facility] Name Value Range Interpretation Code Description Data Pebbles rce(s) Supporting Document(s ) COV2 [facility] This lab was ordered by [facility] and reported by [facility] [place]. ID Date Data Source [id number] 09/21/2019 05:56:00 PM EDT [facility] Name Value Range Interpretation Description Data Sup porting Code Source(s) Document(s ) SARS [facility] CORONAVIRUS 2 RNA This lab was ordered by [facility] and reported by [facility]. ID Date Data Source Microbiology.[id number] 09/18/2019 06:20:00 AM EDT [facility] 400 Name Value Range Interpretation Code Description Data Pebbles rce(s) Supporting Document(s ) UNK <item><content [facility] styleCode="Bold"> Medical Cent er Culture Status </content>
<t able><tbody><tr>< td>Specimen Number:</td><td>[id number]</td></tr ><tr><td>Sample Collection Date/Time: </td><td>09/18/2019 6:20 AM</td></tr><tr>< td>Specimen Source:</td><td>B LOOD</td></tr><tr ><td>Blood Culture:</td><td> Collection Plate Date: 09/18/2019 06:41 </td></tr><tr><td >Culture Report:</td><td>N O GROWTH AFTER 48 HOURS </td></tr><tr><td >Culture Status:</td><td>P reliminary </td></tr></tbody ></table></item> UNK <item><content [facility] styleCode="Bold"> Medical Cent er Culture Report </content>
<t able><tbody><tr>< td>Specimen Number:</td><td>[id number]</td></tr ><tr><td>Sample Collection Date/Time: </td><td>09/18/2019 6:20 AM</td></tr><tr>< td>Specimen Source:</td><td>B LOOD</td></tr><tr ><td>Blood Culture:</td><td> Collection Plate Date: 09/18/2019 06:41 </td></tr><tr><td >Culture Status:</td><td>P reliminary </td></tr><tr><td >Culture Report:</td><td>N O GROWTH AFTER 48 HOURS </td></tr></tbody ></table></item> ID Date Data Source Microbiology.[id number] 09/18/2019 06:05:00 AM EDT [facility] 400 Name Value Range Interpretation Code Description Data Pebbles rce(s) Supporting Document(s ) UNK <item><content [facility] styleCode="Bold"> [facility] Culture Report </content>
<t able><tbody><tr>< td>Specimen Number:</td><td>[id number]</td></tr ><tr><td>Sample Collection Date/Time: </td><td>09/18/2019 6:05 AM</td></tr><tr>< td>Specimen Source:</td><td>B LOOD</td></tr><tr ><td>Blood Culture:</td><td> Collection Plate Date: 09/18/2019 06:41 </td></tr><tr><td >Culture Status:</td><td>P reliminary </td></tr><tr><td >Culture Report:</td><td>N O GROWTH AFTER 48 HOURS </td></tr></tbody ></table></item> UNK <item><content [facility] styleCode="Bold"> Medical Cent er Culture Status </content>
<t able><tbody><tr>< td>Specimen Number:</td><td>[id number]</td></tr ><tr><td>Sample Collection Date/Time: </td><td>09/18/2019 6:05 AM</td></tr><tr>< td>Specimen Source:</td><td>B LOOD</td></tr><tr ><td>Culture Report:</td><td>N O GROWTH AFTER 48 HOURS </td></tr><tr><td >Culture Status:</td><td>P reliminary </td></tr><tr><td >Blood Culture:</td><td> Collection Plate Date: 09/18/2019 06:41 </td></tr></tbody ></table></item> ID Date Data Source HematologyRou.[id number] 09/17/2019 11:54:00 PM EDT [facility] 0400 Name Value Range Interpretation Code Description Data Supporting Source(s) Document(s ) UNK 0.5-1.5 Below low normal <content [facility] styleCode="Bold"> Medical Retic % Center </content>0.40 % L<content styleCode="Italic s"> (0.5-1.5 %)</content> UNK 0.018-0.1 Below low normal <content [facility] styleCode="Bold"> Medical Reticulocyte Center Absolute Count </content>0.0148 MCUMM L<content styleCode="Italic s"> (0.018-0.1 MCUMM)</content> UNK 9.3-17.4 <content [facility] styleCode="Bold"> Medical Immature Center Reticulocyte Fraction </content>15.9 %<content styleCode="Italic s"> (9.3-17.4 %)</content> UNK 30.0-38.0 Below low normal <content [facility] styleCode="Bold"> Medical Reticulocyte Center Hemoglobin Equivalent </content>19.5 PG L<content styleCode="Italic s"> (30.0-38.0 PG)</content> ID Date Data Source HematologyRou.[id number] 09/17/2019 11:42:00 PM EDT [facility] 0400 Name Value Range Interpretation Description [...] ics"> (8.0-11.0 [place])</content> ID Date Data Source GFR(Creatinine).[id number] 09/17/2019 11:42:00 PM EDT [facility] 0-0400 Name Value Range Interpretation Code Description Data Pebbles rce(s) Supporting Document(s ) UNK > 60 <content [facility] styleCode="Bold"> Medical Cent er EGFR </content>144 GFR<content styleCode="Italic s"> (> 60 GFR)</content> ID Date Data Source ChemistrySpecia.[id number] 09/17/2019 11:42:00 PM EDT [facility] 0-0400 Name Value Range Interpretation Description Data [...] (239-931 PG/ML)</conten t> ID Date Data Source CHMROUTINECCDA.[id number] 09/17/2019 11:42:00 PM EDT [facility] -0400 Name Value Range Interpretation Description Data Sup porting Code Source(s) Document(s ) Ferritin 18-464 <content [facility] [Mass/volume] styleCode="[facility] in Serum or d">Ferritin Medical Plasma </content>27.3 Center NG/ML<content styleCode="Zakia lics"> (18-464 NG/ML)</conten t> UNK 261-462 <content [facility] styleCode="[facility] d">TIBC Medical </content>436 Center UG/DL<content styleCode="Zakia lics"> [...] (2.5-4.5 MG/DL)</conten t> ID Date Data Source CardiacMarkers.[id number] 09/17/2019 11:42:00 PM EDT [facility] -0400 Name Value Range Interpretation Description Data Sup porting Code Source(s) Document(s ) Troponin < 0.034 <content [facility].cardiac styleCode="[facility] [Mass/volume ">Troponin I Medical ] in Serum </content>0.024 Center or Plasma NG/ML<content styleCode="Ital ics"> (< 0.034 NG/ML)</content > ID Date Data Source BMP.[id number] 09/17/2019 11:42:00 PM EDT [facility] Name Value Range Interpretation Description [...] [place] in Serum or d">Chloride Medical Plasma </content>96 Center MEQ/L L<content styleCode="Zakia lics"> (98-107 MEQ/L)</conten t> UNK > 60 <content [facility] styleCode="[facility] [place] d">EGFR Medical </content>144 Center GFR<content styleCode="Zakia lics"> (> 60 GFR)</content> Calcium 8.4-10.2 Below low normal <content [facility] [Mass/volume] styleCode="[facility] [place] in Serum or d">Calcium Medical Plasma </content>7.8 Center MG/DL L<content styleCode="Zakia lics"> (8.4-10.2 MG/DL)</conten t> Glucose 74-106 <content [facility] [Mass/volume] styleCode="[facility] [place] in Serum or d">Glucose Medical Plasma </content>100 Center MG/DL<content styleCode="Zakia lics"> (74-106 MG/DL)</conten t> ID Date Data Source Liver 09/06/2019 03:21:00 AM EDT [facility] Profile.[id number] Name Value Range Interpretation Description Data Sup [...] s"> (0.2-1.3 MG/DL)</content> ID Date Data Source HematologyRou.[id number] 09/06/2019 03:21:00 AM EDT [facility] 0400 Name Value Range Interpretation Description [...] ics"> (0 /100)</content> ID Date Data Source GFR(Creatinine).[id number] 09/06/2019 03:21:00 AM EDT [facility] 0-0400 Name Value Range Interpretation Code Description Data Pebbles rce(s) Supporting Document(s ) UNK > 60 <content [facility] styleCode="Bold"> Medical Cent er EGFR </content>230 GFR<content styleCode="Italic s"> (> 60 GFR)</content> ID Date Data Source CHMROUTINECCDA.[id number] 09/06/2019 03:21:00 AM EDT [facility] -0400 Name Value Range Interpretation Description [...] (2.5-4.5 MG/DL)</conten t> ID Date Data Source [facility].[id number] 09/06/2019 03:21:00 AM EDT [facility] Center Name Value Range Interpretation Description Data Sup porting Code Source(s) Document(s ) Potassium 3.5-5.3 Below lower <content [facility] [Moles/volume] in panic limits styleCode="Bold"> [facility] Serum or Plasma Potassium Medical </content><conten Center t styleCode="Bold"> 2.9 MEQ/L LL</content><cont ent styleCode="Italic s"> (3.5-5.3 MEQ/L)</content> Sodium 137-145 Below low <content [facility] [Moles/volume] in normal styleCode="Bold"> [facility] Serum or Plasma Sodium Medical </content>134 Center [...] s"> (3.5-5.0 G/DL)</content> ID Date Data Source CHMROUTINECCDA.[id number] 09/05/2019 10:28:00 AM EDT [facility] -0400 Name Value Range Interpretation Description Data Sup porting Code Source(s) Document(s ) Lactate 0.7-2.0 <content [facility] [Mass/volum styleCode="Bold Medical e] in Serum ">Lactic Acid Center or Plasma </content>1.9 MMOLL<content styleCode="Ital ics"> (0.7-2.0 MMOLL)</content > ID Date Data Source [id number] 09/05/2019 10:24:00 AM EDT [facility] Name Value Range Interpretation Code Description Data Pebbles rce(s) Supporting Document(s ) RESULT [facility] This lab [facility] and reported by [facility] [place]. ID Date Data Source Microbiology.[id number] 09/05/2019 10:17:00 AM EDT [facility] 400 Name Value Range Interpretation Code Description Data Pebbles rce(s) Supporting Document(s ) UNK <item><content [facility] styleCode="Bold"> Medical [facility] er Culture Status </content>
<t able><tbody><tr>< td>Specimen Number:</td><td>[id number]</td></tr ><tr><td>Sample Collection Date/Time: </td><td> 0 10:17 AM</td></tr><tr>< td>Specimen Source:</td><td>B LOOD</td></tr><tr ><td>Blood Culture:</td><td> Collection Plate Date: 09/05/2019 10:23 </td></tr><tr><td >Culture Status:</td><td>P reliminary </td></tr><tr><td >Culture Report:</td><td>C ulture in progress </td></tr><tr><td >Gram Stain:</td><td>GR AM POSITIVE COCCI IN CLUSTERS NOTIFIED WITH READ-BACK KERVIN ROLLE RN </td></tr></tbody ></table></item> UNK <item><content [facility] styleCode="Bold"> Medical [facility] er Culture Report </content>
<t able><tbody><tr>< td>Specimen Number:</td><td>[id number]</td></tr ><tr><td>Sample Collection Date/Time: </td><td> 0 10:17 AM</td></tr><tr>< td>Specimen Source:</td><td>B LOOD</td></tr><tr ><td>Gram Stain:</td><td>GR AM POSITIVE COCCI IN CLUSTERS NOTIFIED WITH READ-BACK KERVIN ROLLE RN </td></tr><tr><td >Culture Report:</td><td>C ulture in progress </td></tr><tr><td >Culture Status:</td><td>P reliminary </td></tr><tr><td >Blood Culture:</td><td> Collection Plate Date: 09/05/2019 10:23 </td></tr></tbody ></table></item> ID Date Data Source Microbiology.[id number] 09/05/2019 10:16:00 AM EDT [facility] 400 Name Value Range Interpretation Code Description Data Pebbles rce(s) Supporting Document(s ) UNK <item><content [facility] styleCode="Bold"> Medical [facility] er Culture Report </content>
<t able><tbody><tr>< td>Specimen Number:</td><td>[id number]</td></tr ><tr><td>Sample Collection Date/Time: </td><td> 0 10:16 AM</td></tr><tr>< td>Specimen Source:</td><td>B LOOD</td></tr><tr ><td>Blood Culture:</td><td> Collection Plate Date: 09/05/2019 10:24 </td></tr><tr><td >Culture Status:</td><td>P reliminary </td></tr><tr><td >Culture Report:</td><td>C ulture in progress </td></tr></tbody ></table></item> UNK <item><content [facility] styleCode="Bold"> Medical [facility] er Culture Status </content>
<t able><tbody><tr>< td>Specimen Number:</td><td>[id number]</td></tr ><tr><td>Sample Collection Date/Time: </td><td> 0 10:16 AM</td></tr><tr>< td>Specimen Source:</td><td>B LOOD</td></tr><tr ><td>Culture Report:</td><td>C ulture in progress </td></tr><tr><td >Culture Status:</td><td>P reliminary </td></tr><tr><td >Blood Culture:</td><td> Collection Plate Date: 09/05/2019 10:24 </td></tr></tbody ></table></item> ID Date Data Source Liver 09/05/2019 10:16:00 AM EDT [facility] Profile.[id number] Name Value Range Interpretation Description Data Sup [...] IU/L)</content> Alkaline 38-126 <content [facility] phosphatase styleCode="Bold"> [facility] [Enzymatic Alkaline Medical activity/volume] Phosphatase (ALP) Cente [...] s"> (0.2-1.3 MG/DL)</content> ID Date Data Source HematologyRou.[id number] 09/05/2019 10:16:00 AM EDT [facility] 0400 Name Value Range Interpretation Description [...] [place] Fraction] of ">Hematocrit Medical Blood by </content>28.4 [...] NORMAL <content [facility] styleCode="[facility] ">Microcyte Medical </content>SLIGH Center T <content styleCode="Ital ics"> (NORMAL )</content> UNK NORMAL <content [facility] styleCode="[facility] ">Macrocyte Medical </content>SLIGH Center T <content styleCode="Ital ics"> (NORMAL )</content> UNK NORMAL <content [facility] styleCode="[facility] ">Hypochromia Medical </content>SLIGH Center T <content styleCode="Ital ics"> (NORMAL )</content> ID Date Data Source GFR(Creatinine).[id number] 09/05/2019 10:16:00 AM EDT [facility] 0-0400 Name Value Range Interpretation Code Description Data Pebbles rce(s) Supporting Document(s ) UNK > 60 <content [facility] styleCode="Bold"> Medical Cent er EGFR </content>178 GFR<content styleCode="Italic s"> (> 60 GFR)</content> ID Date Data Source CHMROUTINECCDA.[id number] 09/05/2019 10:16:00 AM EDT [facility] -0400 Name Value Range Interpretation Description Data Sup porting Code Source(s) Document(s ) UNK 2.3-3.5 <content [facility] styleCode="Bold Medical ">Globulin Center </content>2.6 G/DL<content styleCode="Ital ics"> (2.3-3.5 G/DL)</content> UNK >= 1.0 <content [facility] styleCode="Bold Medical ">AG Ratio Center </content>1.3 <content styleCode="Ital ics"> (>= 1.0 )</content> Protein 6.3-8.2 Below low normal <content [facility] [Mass/volum styleCode="Bold Medical e] in Serum ">Total Protein Center or Plasma </content>6.0 G/DL L<content styleCode="Ital ics"> (6.3-8.2 G/DL)</content> ID Date Data Source [facility].[id number] 09/05/2019 10:16:00 AM EDT [facility] Name Value Range Interpretation Description [...] Data Source Liver 08/10/2019 01:50:00 AM EST [facility] Profile.[id number] Name Value Range Interpretation Description Data Sup [...] s"> (3.5-5.0 G/DL)</content> ID Date Data Source HematologyRou.[id number] 08/10/2019 01:50:00 AM [facility] 0500 Name Value Range Interpretation Description Data Sup porting Code Source(s) Document(s ) Hematocrit 41.0-53. Below low normal <content [facility] [Volume 0 styleCode="Bold [facility] Fraction] of ">Hematocrit Medical Blood by </content>27.8 Center Automated count % L<content styleCode="Ital ics"> (41.0-53.0 %)</content> Erythrocytes 4.4-5.9 Below low normal <content [facility] [#/volume] in styleCode="Bold [facility] Blood by ">Red Blood Medical Automated count [...] ics"> (0 /100)</content> ID Date Data Source GFR(Creatinine).[id number] 08/10/2019 01:50:00 AM EST [facility] 0-0500 Name Value Range Interpretation Code Description Data Pebbles rce(s) Supporting Document(s ) UNK > 60 <content [facility] styleCode="Bold"> Medical Cent er EGFR </content>144 GFR<content styleCode="Italic s"> (> 60 GFR)</content> ID Date Data Source [id number] 08/10/2019 01:50:00 AM EST [facility] Name Value Range Interpretation Description [...] s"> (38-126 IU/L)</content> ID Date Data Source Urinalysis.[id number] 08/09/2019 08:03:00 AM [facility] 0 Name Value Range Interpretation Description Data Sup porting Code Source(s) Document(s ) Color of Urine YELLOW <content [facility] styleCode="[facility] d">Color, Medical Urine Center </content>YELL OW <content styleCode="Zakia lics"> (YELLOW )</content> UNK CLEAR <content [facility] styleCode="[facility] d">Urine Medical Clarity Center </content>COLIN R <content styleCode="Zakia lics"> (CLEAR )</content> UNK NEGATIVE <content [facility] styleCode="[facility] d">Urine [...] by Test d">Urine Medical strip Specific Center [place] </content>1.01 0 L<content styleCode="Zakia lics"> (1.015-1.025 )</content> [...] Test Leukocyte Center strip </content>NEGA TIVE <content styleCode="Zaika lics"> (NEGATIVE )</content> ID Date Data Source Liver 08/09/2019 08:03:00 AM EST [facility] Profile.[id number] Name Value Range Interpretation Description Data Sup [...] s"> (0.2-1.3 MG/DL)</content> ID Date Data Source HematologyRou.[id number] 08/09/2019 08:03:00 AM [place] [facility] 0500 Name Value Range Interpretation Description Data Sup porting Code Source(s) Document(s ) Leukocytes 4.4-11.0 <content [facility] [#/volume] in styleCode="Bold [facility] Blood by ">White Blood Medical Automated count [...] ics"> (0 /100)</content> ID Date Data Source GFR(Creatinine).[id number] 08/09/2019 08:03:00 AM [facility] 0-0500 Name Value Range Interpretation Code Description Data Pebbles rce(s) Supporting Document(s ) UNK > 60 <content [facility] styleCode="Bold"> Medical Cent er EGFR </content>178 GFR<content styleCode="Italic s"> (> 60 GFR)</content> ID Date Data Source REMIGIO.[id number] 08/09/2019 08:03:00 AM EST [facility] -0500 Name Value Range Interpretation Description Data Sup porting Code Source(s) Document(s ) UNK 30-110 <content [facility] styleCode="Bold Medical ">Amylase Center </content>35 IU/L<content styleCode="Ital ics"> (30-110 IU/L)</content> Lipase 23-300 Below low normal <content [facility] [Enzymatic styleCode="Bold Medical activity/vo ">Lipase Center lume] in </content>19 Serum or IU/L L<content Plasma styleCode="Ital ics"> (23-300 IU/L)</content> ID Date Data Source [facility].[id number] 08/09/2019 08:03:00 AM [facility] Name Value Range Interpretation Description Data Sup porting Code Source(s) Document(s ) Sodium 137-145 <content [facility] [Moles/volume] in styleCode="Bold"> [facility] Serum or Plasma Sodium Medical </content>143 Center MEQ/L<content styleCode="Italic s"> (137-145 MEQ/L)</content> UNK 9-20 Below low <content [facility] normal styleCode="Bold"> [facility] BUN </content>5 Medical MG/DL L<content Center styleCode="Italic s"> (9-20 MG/DL)</content> Chloride 98-107 <content [facility] [Moles/volume] in styleCode="Bold"> [facility] Serum or Plasma Chloride Medical </content>104 Center MEQ/L<content styleCode="Italic s"> (98-107 MEQ/L)</content> Creatinine 0.5-1.3 <content [facility] [Mass/volume] in styleCode="Bold"> [facility] Serum or Plasma Creatinine Medical </content>0.5 Center MG/DL<content styleCode="Italic s"> (0.5-1.3 MG/DL)</content> Carbon dioxide, 22-30 Above high <content [facility] total normal styleCode="Bold"> [facility] [Moles/volume] in Carbon Dioxide Medical Serum or Plasma </content>32 Center MEQ/L H<content styleCode="Italic s"> (22-30 MEQ/L)</content> Glucose 74-106 <content [facility] [Mass/volume] in styleCode="Bold"> [facility] Serum or Plasma Glucose Medical </content>86 Center MG/DL<content styleCode="Italic s"> (74-106 MG/DL)</content> Potassium 3.5-5.3 Below low <content [facility] [Moles/volume] in normal styleCode="Bold"> [facility] Serum or Plasma Potassium Medical </content>3.4 Center [...] Data Source Liver 07/28/2019 06:25:00 AM EST [facility] Profile.[id number] Name Value Range Interpretation Description Data Sup [...] IU/L)</content> Alkaline 38-126 <content [facility] phosphatase styleCode="Bold"> [facility] [Enzymatic Alkaline Medical activity/volume] Phosphatase (ALP) Cente [...] s"> (0.0-0.3 MG/DL)</content> ID Date Data Source HematologyRou.[id number] 07/28/2019 06:25:00 AM EST [facility] 0500 Name Value Range Interpretation Description [...] ics"> (8.0-11.0 [place])</content> ID Date Data Source GFR(Creatinine).[id number] 07/28/2019 06:25:00 AM [facility] 0-0500 Name Value Range Interpretation Code Description Data Pebbles rce(s) Supporting Document(s ) UNK > 60 <content [facility] styleCode="Bold"> Medical Cent er EGFR </content>178 GFR<content styleCode="Italic s"> (> 60 GFR)</content> ID Date Data Source CardiacMarkers.[id number] 07/28/2019 06:25:00 AM [facility] -0500 Name Value Range Interpretation Description Data Sup porting Code Source(s) Document(s ) Troponin < 0.034 <content [facility] I.cardiac styleCode="[facility] [Mass/volume ">Troponin I Medical ] in Serum </content>< Center or Plasma 0.012 NG/ML<content styleCode="Ital ics"> (< 0.034 NG/ML)</content > ID Date Data Source BMP.[id number] 07/28/2019 06:25:00 AM EST [facility] Name Value Range Interpretation Description [...] Data Source Liver 05/13/2019 11:52:00 AM EST [facility] Profile.[id number] Name Value Range Interpretation Description Data Sup [...] s"> (3.5-5.0 G/DL)</content> ID Date Data Source HematologyRou.[id number] 05/13/2019 11:52:00 AM [place] [facility] 0500 Name Value Range Interpretation Description [...] (0.0 KCUMM)</content > ID Date Data Source GFR(Creatinine).[id number] 05/13/2019 11:52:00 AM [facility] 0-0500 Name Value Range Interpretation Code Description Data Pebbles rce(s) Supporting Document(s ) UNK > 60 <content [facility] styleCode="Bold"> Medical Cent er EGFR </content>178 GFR<content styleCode="Italic s"> (> 60 GFR)</content> ID Date Data Source CHMROUTINECCDA.[id number] 05/13/2019 11:52:00 AM [facility] -0500 Name Value Range Interpretation Description [...] (2.5-4.5 MG/DL)</conten t> ID Date Data Source [facility].[id number] 05/13/2019 11:52:00 AM EST [facility] Center Name Value Range Interpretation Description Data Sup porting Code Source(s) Document(s ) Sodium 137-145 <content [facility] [Moles/volume] in styleCode="Bold"> [facility] Serum or Plasma Sodium Medical </content>137 Center MEQ/L<content styleCode="Italic s"> (137-145 MEQ/L)</content> Potassium 3.5-5.3 <content [facility] [Moles/volume] in styleCode="Bold"> [facility] Serum or Plasma Potassium Medical </content>3.6 Center MEQ/L<content styleCode="Italic s"> (3.5-5.3 MEQ/L)</content> Chloride 98-107 <content [facility] [Moles/volume] in styleCode="Bold"> [facility] Serum or Plasma Chloride Medical </content>104 Center MEQ/L<content styleCode="Italic s"> (98-107 MEQ/L)</content> Creatinine 0.5-1.3 <content [facility] [Mass/volume] in styleCode="Bold"> [facility] Serum or Plasma Creatinine Medical </content>0.5 Center [...] s"> (38-126 IU/L)</content> ID Date Data Source HematologyRou.[id number] 05/10/2019 05:50:00 AM [place] [facility] 0500 Name Value Range Interpretation Description [...] (0.0 KCUMM)</content > ID Date Data Source GFR(Creatinine).[id number] 05/10/2019 05:50:00 AM [facility] 0-0500 Name Value Range Interpretation Code Description Data Pebbles rce(s) Supporting Document(s ) UNK > 60 <content [facility] styleCode="Bold"> Medical Cent er EGFR </content>178 GFR<content styleCode="Italic s"> (> 60 GFR)</content> ID Date Data Source MROUTINECCDA.[id number] 05/10/2019 05:50:00 AM [facility] -0500 Name Value Range Interpretation Description [...] (1.6-2.3 MG/DL)</conten t> ID Date Data Source [facility].[id number] 05/10/2019 05:50:00 AM EST [facility] Name Value Range Interpretation Description [...] [place] in Serum or d">Calcium Medical Plasma </content>8.6 Center MG/DL<content styleCode="Zakia lics"> (8.4-10.2 MG/DL)</conten t> UNK > 60 <content [facility] styleCode="[facility] [place] d">EGFR Medical </content>178 Center GFR<content styleCode="Zakia lics"> (> 60 GFR)</content> ID Date Data Source Liver 05/09/2019 12:46:00 PM EST [facility] Profile.[id number] Name Value Range Interpretation Description Data Sup [...] s"> (3.5-5.0 G/DL)</content> ID Date Data Source GFR(Creatinine).[id number] 05/09/2019 12:46:00 PM [facility] 0-0500 Name Value Range Interpretation Code Description Data Pebbles rce(s) Supporting Document(s ) UNK > 60 <content [facility] styleCode="Bold"> Medical Cent er EGFR </content>178 GFR<content styleCode="Italic s"> (> 60 GFR)</content> ID Date Data Source REMIGIO.[id number] 05/09/2019 12:46:00 PM [place] [facility] -0500 Name Value Range Interpretation Description [...] (2.5-4.5 MG/DL)</conten t> ID Date Data Source [facility].[id number] 05/09/2019 12:46:00 PM EST [facility] Center Name Value Range Interpretation Description Data Sup porting Code Source(s) Document(s ) Sodium 137-145 Below low <content [facility] [Moles/volume] in normal styleCode="Bold"> [facility] Serum or Plasma Sodium Medical </content>136 Center MEQ/L L<content styleCode="Italic s"> (137-145 MEQ/L)</content> Chloride 98-107 <content [facility] [Moles/volume] in styleCode="Bold"> [facility] Serum or Plasma Chloride Medical </content>102 Center [...] Data Source Liver 05/08/2019 07:35:00 AM EST [facility] Profile.[id number] Name Value Range Interpretation Description Data Sup [...] s"> (3.5-5.0 G/DL)</content> ID Date Data Source LIPID.[id number] 05/08/2019 07:35:00 AM EST [facility] Name Value Range Interpretation Description Data Sup porting Code Source(s) Document(s ) Triglyceride < 150 <content [facility] [Mass/volume] in styleCode="[facility] [place] Serum or Plasma d">Triglycerid Medical es Center </content>104 MG/DL<content styleCode="Zakia lics"> (< 150 MG/DL)</conten t> UNK > 60 Below low normal <content [facility] styleCode="[facility] [place] d">HDL- Medical Cholesterol Center </content>59 MG/DL L<content styleCode="Zakia lics"> (> 60 MG/DL)</conten t> Cholesterol -<200 <content [facility] [Mass/volume] in styleCode="Mac [facility] Serum or Plasma d">Cholesterol Medical </content>154 Center MG/DL<content styleCode="Zakia lics"> (-<200 MG/DL)</conten t> UNK < 100 <content [facility] styleCode="[facility] d">LDL-Cholest Medical candy Center </content>74 MG/DL<content styleCode="Zakia lics"> (< 100 MG/DL)</conten t> ID Date Data Source HematologyRou.[id number] 05/08/2019 07:35:00 AM [place] [facility] 0500 Name Value Range Interpretation Description [...] (0.0 KCUMM)</content > ID Date Data Source GFR(Creatinine).[id number] 05/08/2019 07:35:00 AM [facility] 0-0500 Name Value Range Interpretation Code Description Data Pebbles rce(s) Supporting Document(s ) UNK > 60 <content [facility] styleCode="Bold"> Medical Cent er EGFR </content>178 GFR<content styleCode="Italic s"> (> 60 GFR)</content> ID Date Data Source REMIGIO.[id number] 05/08/2019 07:35:00 AM [facility] -0500 Name Value Range Interpretation Description [...] (1.6-2.3 MG/DL)</conten t> ID Date Data Source [facility].[id number] 05/08/2019 07:35:00 AM EST [facility] Name Value Range Interpretation Description Data Sup porting Code Source(s) Document(s ) Sodium 137-145 Below low <content [facility] [Moles/volume] in normal styleCode="Bold"> [facility] Serum or Plasma Sodium Medical </content>136 Center [...] s"> (3.5-5.0 G/DL)</content> ID Date Data Source Urinalysis.[id number] 05/07/2019 04:00:00 PM [place] [facility] 0 Name Value Range Interpretation Description Data Sup porting Code Source(s) Document(s ) Color of Urine YELLOW <content [facility] styleCode="[facility] d">Color, Medical Urine Center </content>AMBE R <content styleCode="Zakia lics"> (YELLOW )</content> UNK CLEAR <content [facility] styleCode="[facility] d">Urine Medical Clarity Center </content>CLOU DY <content styleCode="Zakia lics"> (CLEAR )</content> Glucose NEGATIVE <content [facility] [Mass/volume] styleCode="[facility] in Urine by d">Urine Medical Test strip Glucose Center </content>NEGA TIVE MG/DL<content styleCode="Zakia lics"> (NEGATIVE MG/DL)</conten t> Ketones NEGATIVE <content [facility] [Mass/volume] styleCode="Mac [place] in Urine by d">Urine Medical Test strip Ketone Center </content>NEGA TIVE MG/DL<content styleCode="Zakia lics"> (NEGATIVE MG/DL)</conten t> UNK NEGATIVE <content [facility] styleCode="[facility] d">Urine Medical Bilirubin Center </content>NEGA TIVE <content styleCode="Zakia lics"> (NEGATIVE )</content> Specific 1.015-1.02 Below low normal <content [facility] gravity of 5 styleCode="Mac Quiros Urine by Test d">Urine Medical strip Specific Center [place] </content>1.01 0 L<content styleCode="Zakia lics"> (1.015-1.025 )</content> [...] t> Leukocyte NEGATIVE <content [facility] esterase styleCode="Mac [facility]ros [Presence] in d">Urine Medical Urine by Test Leukocyte Center strip </content>TRAC E <content styleCode="Zaika lics"> (NEGATIVE )</content> Nitrite NEGATIVE <content [facility] [...] (0-3 HPF)</content> UNK NONE <content [facility] styleCode="[facility] [place] d">Amorphous Medical [facility] </content>MODE RATE HPF<content styleCode="Zakia lics"> (NONE HPF)</content> UNK NEGATIVE <content [facility] styleCode="[facility] [place] d">Urine Medical Bacteria Center </content>FEW HPF<content styleCode="Zakia lics"> (NEGATIVE HPF)</content> UNK NONE SEEN <content [facility] styleCode="[facility] [place] d">Epithelial Medical Cell Center </content>10 - 20 HPF<content styleCode="Zakia lics"> (NONE SEEN HPF)</content> ID Date Data Source JORGE LUISMROUTINECCALEXA.[id number] 05/07/2019 04:00:00 PM EST [facility] -0500 Name Value Range Interpretation Description Data Sup porting Code Source(s) Document(s ) Cannabinoids <content [facility] [Presence] in styleCode="[facility] Urine by Screen d">Cannabinoid Medical method >50 ng/mL s Center </content>NEGA TIVE NG/ML (Reference Range: not available)<br/ > ID Date Data Source Liver 05/07/2019 02:18:00 PM [facility] Profile.[id number] Name Value Range Interpretation Description Data Sup [...] s"> (3.5-5.0 G/DL)</content> ID Date Data Source GFR(Creatinine).[id number] 05/07/2019 02:18:00 PM [place] [facility] 0-0500 Name Value Range Interpretation Code Description Data Pebbles rce(s) Supporting Document(s ) UNK > 60 <content [facility] styleCode="Bold"> Medical Cent er EGFR </content>178 GFR<content styleCode="Italic s"> (> 60 GFR)</content> ID Date Data Source BMP.[id number] 05/07/2019 02:18:00 PM EST [facility] Name Value Range Interpretation Description Data Sup porting Code Source(s) Document(s ) Sodium 137-145 <content [facility] [Moles/volume] in styleCode="Bold"> [facility] Serum or Plasma Sodium Medical </content>137 Center MEQ/L<content styleCode="Italic s"> (137-145 MEQ/L)</content> Potassium <content [facility] [Moles/volume] in styleCode="Bold"> [facility] Serum or Plasma Potassium Medical </content>Test Center [...] s"> (3.5-5.0 G/DL)</content> ID Date Data Source CHMROUTINECCDA.[id number] 05/07/2019 02:18:00 PM [facility] -0500 Name Value Range Interpretation Description Data Sup porting Code Source(s) Document(s ) UNK 2.3-3.5 <content [facility] styleCode="Bold Medical ">Globulin Center </content>2.9 G/DL<content styleCode="Ital ics"> (2.3-3.5 G/DL)</content> UNK >= 1.0 <content [facility] styleCode="Bold Medical ">AG Ratio Center </content>1.1 <content styleCode="Ital ics"> (>= 1.0 )</content> Protein 6.3-8.2 Below low normal <content [facility] [Mass/volum styleCode="Bold Medical e] in Serum ">Total Protein Center or Plasma </content>6.2 G/DL L<content styleCode="Ital ics"> (6.3-8.2 G/DL)</content> ID Date Data Source GFR(Creatinine).[id number] 05/07/2019 12:50:00 PM [facility] 0-0500 Name Value Range Interpretation Code Description Data Pebbles rce(s) Supporting Document(s ) UNK <content [facility] styleCode="Bold"> Medical Cent er EGFR </content>Test not performed. GFR (Reference Range: not available)
ID Date Data Source [facility].[id number] 05/07/2019 12:50:00 PM [facility] Name Value Range Interpretation Description Data [...] Date Data Source Liver 05/07/2019 10:05:00 AM EST [facility] Profile.[id number] Name Value Range Interpretation Description Data Sup [...] Range: not available)
ID Date Data Source HematologyRou.[id number] 05/07/2019 10:05:00 AM [place] [facility] 0500 Name Value Range Interpretation Description [...] Platelets 130-400 <content [facility] [#/volume] in styleCode="Bold [facility] Blood by ">Platelet Medical Automated count Count Center </content>210 KCUMM<content styleCode="Ital ics"> (130-400 KCUMM)</content > UNK 0 <content [facility] styleCode="Bold [place] ">Nucleated Red Medical Blood Cell Center </content>0.0 /100<content styleCode="Ital ics"> (0 /100)</content> UNK 0.0 <content [facility] styleCode="[facility] [place] ">Nucleated Red Medical Blood Cell Center Count </content>0.00 KCUMM<content styleCode="Ital ics"> (0.0 KCUMM)</content > ID Date Data Source GFR(Creatinine).[id number] 05/07/2019 10:05:00 AM [facility] 0-0500 Name Value Range Interpretation Code Description Data Pebbles rce(s) Supporting Document(s ) UNK <content [facility] styleCode="Bold"> Medical Cent er EGFR </content>Test not performed. GFR (Reference Range: not available)
ID Date Data Source BMP.[id number] 05/07/2019 10:05:00 AM EST [facility] Name Value Range Interpretation Description Data Sup porting Code Source(s) Document(s ) Chloride <content [facility] [Moles/volume] in styleCode="Bold"> [facility] Serum or Plasma Chloride Medical </content>Test Center [...] Data Source Liver 02/19/2019 05:25:00 PM EDT [facility] Profile.[id number] Name Value Range Interpretation Description Data Sup [...] s"> (0.2-1.3 MG/DL)</content> ID Date Data Source HematologyRou.[id number] 02/19/2019 05:25:00 PM EDT [facility] 0400 Name Value Range Interpretation Description [...] (130-400 KCUMM)</content > ID Date Data Source GFR(Creatinine).[id number] 02/19/2019 05:25:00 PM EDT [facility] 0-0400 Name Value Range Interpretation Code Description Data Pebbles rce(s) Supporting Document(s ) UNK > 60 <content [facility] styleCode="Bold"> Medical Cent er EGFR </content>144 GFR<content styleCode="Italic s"> (> 60 GFR)</content> ID Date Data Source BMP.[id number] 02/19/2019 05:25:00 PM EDT [facility] Name Value Range Interpretation Description Data Sup porting Code Source(s) Document(s ) Sodium 137-145 <content [facility] [Moles/volume] in styleCode="Bold"> [facility] Serum or Plasma Sodium Medical </content>145 Center MEQ/L<content styleCode="Italic s"> (137-145 MEQ/L)</content> Potassium <content [facility] [Moles/volume] in styleCode="Bold"> [facility] Serum or Plasma Potassium Medical </content>Test Center not performed. MEQ/L (Reference Range: not available)
UNK 9-20 <content [facility] styleCode="Bold"> [place] BUN [...] IU/L)</content> Alkaline 38-126 <content [facility] phosphatase styleCode="Bold"> [facility] [Enzymatic Alkaline Medical activity/volume] Phosphatase (ALP) Cente [...] s"> (3.5-5.0 G/DL)</content> ID Date Data Source HematologyRou.[id number] 01/26/2019 09:36:00 PM EDT [facility] 0400 Name Value Range Interpretation Description [...] (0.0 KCUMM)</content > ID Date Data Source GFR(Creatinine).[id number] 01/26/2019 09:36:00 PM EDT [facility] 0-0400 Name Value Range Interpretation Code Description Data Pebbles rce(s) Supporting Document(s ) UNK > 60 <content [facility] styleCode="Bold"> Medical Cent er EGFR </content>90 GFR<content styleCode="Italic s"> (> 60 GFR)</content> ID Date Data Source BMP.[id number] 01/26/2019 09:36:00 PM EDT [facility] Name Value Range Interpretation Description [...] [place] in Serum or d">Creatinine Medical Plasma </content>0.9 Center MG/DL<content styleCode="Zakia lics"> (0.5-1.3 MG/DL)</conten t> Glucose 74-106 <content [facility] [Mass/volume] styleCode="Mac [place] in Serum or d">Glucose Medical Plasma </content>106 Center MG/DL<content styleCode="Zakia lics"> (74-106 MG/DL)</conten t> UNK > 60 <content [facility] styleCode="Mac [facility]iros d">EGFR Medical </content>90 Center GFR<content styleCode="Zakia lics"> (> 60 GFR)</content> ID Date Data Source Urinalysis.[id number] 01/25/2019 10:03:00 AM EDT [facility] 0 Name Value Range Interpretation Description [...] by Test d">Urine Medical strip Specific Center [place] </content><= 1.005 L<content styleCode="Zakia lics"> (1.015-1.025 )</content> Hemoglobin NEGATIVE <content [facility] [Presence] in styleCode="Mac Quiros Urine by Test d">Urine Blood Medical strip </content>NEGA Center TIVE <content styleCode="Zakia lics"> (NEGATIVE )</content> Glucose NEGATIVE <content [facility] [Mass/volume] styleCode="Mac Quiros in Urine by d">Urine Medical Test strip Glucose Center </content>NEGA TIVE MG/DL<content styleCode="Zakia lics"> (NEGATIVE MG/DL)</conten t> UNK NEGATIVE <content [facility] styleCode="Mac [facility]iros d">Urine Medical Bilirubin Center </content>NEGA TIVE <content [...] [place] d">Urine White Medical Blood Cell Center </content>3-5 HPF<content styleCode="Zakia lics"> (0-3 HPF)</content> UNK NEGATIVE <content [facility] styleCode="[facility] [place] d">Urine Medical Bacteria Center </content>FEW HPF<content styleCode="Zakia lics"> (NEGATIVE HPF)</content> ID Date Data Source Microbiology.[id number] 01/25/2019 10:03:00 AM EDT [facility] 400 Name Value Range Interpretation Code Description Data Pebbles rce(s) Supporting Document(s ) UNK <item><content [facility] styleCode="Bold"> Medical [facility] Culture Report </content>
<t able><tbody><tr>< td>Specimen Number:</td><td>[id number]</td></tr ><tr><td>Sample Collection Date/Time: </td><td> 9 10:03 AM</td></tr><tr>< td>Specimen Source:</td><td>U RINE</td></tr><tr ><td>Urine Culture:</td><td> Collection Plate Date: 01/25/2019 10:05 </td></tr><tr><td >Culture Status:</td><td>P reliminary </td></tr><tr><td >Culture Report:</td><td>C ulture in progress </td></tr></tbody ></table></item> UNK <item><content [facility] styleCode="Bold"> Medical [facility] Culture Status </content>
<t able><tbody><tr>< td>Specimen Number:</td><td>[id number]</td></tr ><tr><td>Sample Collection Date/Time: </td><td> 9 10:03 AM</td></tr><tr>< td>Specimen Source:</td><td>U RINE</td></tr><tr ><td>Culture Status:</td><td>P reliminary </td></tr><tr><td >Culture Report:</td><td>C ulture in progress </td></tr><tr><td >Urine Culture:</td><td> Collection Plate Date: 01/25/2019 10:05 </td></tr></tbody ></table></item> ID Date Data Source REMIGIO.[id number] 01/25/2019 10:03:00 AM EDT [facility] -0400 Name Value Range Interpretation Description Data Sup porting Code Source(s) Document(s ) Cannabinoids <content [facility] [Presence] in styleCode="Mac [facility]iros Urine by Screen d">Cannabinoid Medical method >50 ng/mL s Center </content>NEGA TIVE NG/ML (Reference Range: not available)<br/ > ID Date Data Source Urinalysis.[id number] 01/25/2019 03:00:00 AM EDT [facility] 0 Name Value Range Interpretation Description Data Sup porting Code Source(s) Document(s ) Color of Urine YELLOW <content [facility] styleCode="[facility] d">Color, Medical Urine Center </content>YELL OW <content styleCode="Zakia lics"> (YELLOW )</content> Glucose NEGATIVE <content [facility] [Mass/volume] styleCode="Mca Quiros in Urine by d">Urine Medical Test strip Glucose Center </content>NEGA TIVE MG/DL<content styleCode="Zakia lics"> (NEGATIVE MG/DL)</conten t> UNK NEGATIVE <content [facility] styleCode="[facility] d">Urine Medical Bilirubin Center </content>NEGA TIVE <content styleCode="Zakia lics"> (NEGATIVE )</content> UNK CLEAR <content [facility] styleCode="[facility] [place] d">Urine Medical Clarity Center </content>COLIN R <content styleCode="Zakia lics"> (CLEAR )</content> Ketones NEGATIVE <content [facility] [Mass/volume] styleCode="Mac Quiros in [...] by Test d">Urine Medical strip Specific Center [place] </content><= 1.005 L<content styleCode="Zakia lics"> (1.015-1.025 )</content> [...] UNK 0-3 <content [facility] styleCode="Mac [facility]omes d">Urine White Medical Blood Cell Center </content>3-5 HPF<content styleCode="Zakia lics"> (0-3 HPF)</content> UNK <content styleCode="Mac Jacomes d">Epithelial Medical Cell Center </content>0-2 LPF (Reference Range: not available)<br/ > ID Date Data Source Microbiology.[id number] 01/25/2019 03:00:00 AM EDT [facility] 400 Name Value Range Interpretation Code Description Data Pebbles rce(s) Supporting Document(s ) UNK <item><content [facility] styleCode="Bold"> Medical [facility] er Culture Status </content>
<t able><tbody><tr>< td>Specimen Number:</td><td>[id number]</td></tr ><tr><td>Sample Collection Date/Time: </td><td> 9 3:00 AM</td></tr><tr>< td>Specimen Source:</td><td>U RINE</td></tr><tr ><td>Urine Culture:</td><td> Collection Plate Date: 01/25/2019 03:06 </td></tr><tr><td >Culture Status:</td><td>P reliminary </td></tr><tr><td >Culture Report:</td><td>C ulture in progress </td></tr></tbody ></table></item> UNK <item><content [facility] styleCode="Bold"> Medical Cent er Culture Report </content>
<t able><tbody><tr>< td>Specimen Number:</td><td>[id number]</td></tr ><tr><td>Sample Collection Date/Time: </td><td> 9 3:00 AM</td></tr><tr>< td>Specimen Source:</td><td>U RINE</td></tr><tr ><td>Culture Report:</td><td>C ulture in progress </td></tr><tr><td >Urine Culture:</td><td> Collection Plate Date: 01/25/2019 03:06 </td></tr><tr><td >Culture Status:</td><td>P reliminary </td></tr></tbody ></table></item> ID Date Data Source HematologyRou.[id number] 01/25/2019 03:00:00 AM EDT [facility] 0400 Name Value Range Interpretation Description [...] (< 1 %)</content> ID Date Data Source GFR(Creatinine).[id number] 01/25/2019 03:00:00 AM EDT [facility] 0-0400 Name Value Range Interpretation Code Description Data Pebbles rce(s) Supporting Document(s ) UNK > 60 <content [facility] styleCode="Bold"> Medical Cent er EGFR </content>72 GFR<content styleCode="Italic s"> (> 60 GFR)</content> ID Date Data Source Coagulation 01/25/2019 03:00:00 AM [facility] ical Center Rout.[id number] EDT Name Value Range Interpretation Description Data Sup porting Code Source(s) Document(s ) INR in 0.80-1.2 <content [facility] Platelet poor 0 styleCode="Bold" [place] plasma by >INR Medical Coagulation </content>1.08 Center assay #<content styleCode="Itali cs"> (0.80-1.20 #)</content> UNK 9.0-13.0 <content [facility] styleCode="Bold" [place] >Protime Medical </content>12.0 Center SEC<content styleCode="Itali cs"> (9.0-13.0 SEC)</content> aPTT in 25.1-36. <content [facility] Platelet poor 5 styleCode="Bold" [place] plasma by >Partial Medical Coagulation Thromboplastin Center assay Time </content>29.4 SEC<content styleCode="Itali cs"> (25.1-36.5 SEC)</content> ID Date Data Source MROUTINECCDA.[id number] 01/25/2019 03:00:00 AM EDT [facility] -0400 Name Value Range Interpretation Description Data Sup porting Code Source(s) Document(s ) Phosphate 2.5-4.5 <content [facility] [Mass/volume] styleCode="Mca [facility] in Serum or d">Phosphorus Medical Plasma </content>4.0 [...] not available)<br/ > ID Date Data Source [facility].[id number] 01/25/2019 03:00:00 AM EDT [facility] Name Value Range Interpretation Description Data Sup porting Code Source(s) Document(s ) Sodium 137-145 <content [facility] [Moles/volume] styleCode="Mac [facility] in Serum or d">Sodium Medical Plasma </content>140 [...] 60 GFR)</content> Creatinine 0.5-1.3 <content [facility] [Mass/volume] styleCode="[facility] [place] in Serum or d">Creatinine Medical Plasma </content>1.1 Center MG/DL<content styleCode="Zakia lics"> (0.5-1.3 MG/DL)</conten t> Glucose 74-106 <content [facility] [Mass/volume] styleCode="Mac [place] in Serum or d">Glucose Medical Plasma </content>94 Center MG/DL<content styleCode="Zakia lics"> (74-106 MG/DL)</conten t> UNK 9-20 Below low normal <content [facility] styleCode="[facility] [place] d">BUN Medical </content>8 Center MG/DL L<content styleCode="Zakia lics"> (9-20 MG/DL)</conten t> ID Date Data Source [id number] 01/25/2019 02:24:00 AM EDT [facility] -0400 Name Value Range Interpretation Code Description Data Pebbles rce(s) Supporting Document(s ) UNK 0.7-2.0 <content [facility] styleCode="Bold" Medical Cente r >Lactic Acid 4hr </content>2.0 MMOLL<content styleCode="Itali cs"> (0.7-2.0 MMOLL)</content> ID Date Data Source GFR(Creatinine).[id number] 01/24/2019 09:20:00 PM EDT [facility] 0-0400 Name Value Range Interpretation Code Description Data Pebbles rce(s) Supporting Document(s ) UNK > 60 Below low normal <content [facility] styleCode="Bold"> Medical Cent er EGFR </content>50 GFR L<content styleCode="Italic s"> (> 60 GFR)</content> ID Date Data Source MROUTINECCDA.[id number] 01/24/2019 09:20:00 PM EDT [facility] -0400 Name Value Range Interpretation Description Data Sup porting Code Source(s) Document(s ) Magnesium 1.6-2.3 Below low normal <content [facility] [Mass/volume] styleCode="Mac [place] in Serum or d">Magnesium Medical Plasma </content>1.5 Center MG/DL L<content styleCode="Zakia lics"> (1.6-2.3 MG/DL)</conten t> ID Date Data Source BMP.[id number] 01/24/2019 09:20:00 PM EDT [facility] Name Value Range Interpretation Description Data Sup porting Code Source(s) Document(s ) Sodium 137-145 <content [facility] [Moles/volume] styleCode="Mac [place] in Serum or d">Sodium Medical Plasma </content>142 [...] GFR)</content> Calcium 8.4-10.2 <content [facility] [Mass/volume] styleCode="Mac Quiros in Serum or d">Calcium Medical Plasma </content>8.7 Center MG/DL<content styleCode="Zakia lics"> (8.4-10.2 MG/DL)</conten t> ID Date Data Source Microbiology.[id number] 01/24/2019 08:15:00 PM EDT [facility] 400 Name Value Range Interpretation Code Description Data Pebbles rce(s) Supporting Document(s ) UNK <item><content [facility] styleCode="Bold"> Medical Cent er Culture Status </content>
<t able><tbody><tr>< td>Specimen Number:</td><td>[id number]</td></tr ><tr><td>Sample Collection Date/Time: </td><td> 9 8:15 PM</td></tr><tr>< td>Specimen Source:</td><td>B LOOD</td></tr><tr ><td>Culture Report:</td><td>C ulture in progress </td></tr><tr><td >Culture Status:</td><td>P reliminary </td></tr><tr><td >Blood Culture:</td><td> Collection Plate Date: 01/24/2019 20:30 </td></tr></tbody ></table></item> UNK <item><content [facility] styleCode="Bold"> Medical Cent er Culture Report </content>
<t able><tbody><tr>< td>Specimen Number:</td><td>[id number]</td></tr ><tr><td>Sample Collection Date/Time: </td><td> 9 8:15 PM</td></tr><tr>< td>Specimen Source:</td><td>B LOOD</td></tr><tr ><td>Blood Culture:</td><td> Collection Plate Date: 01/24/2019 20:30 </td></tr><tr><td >Culture Status:</td><td>P reliminary </td></tr><tr><td >Culture Report:</td><td>C ulture in progress </td></tr></tbody ></table></item> ID Date Data Source Liver 01/24/2019 08:15:00 PM EDT [facility] Profile.[id number] Name Value Range Interpretation Description Data Sup [...] (3.5-5.0 G/DL)</content> UNK 0.0-0.3 <content [facility] styleCode="Bold"> [facility] Bilirubin, Direct Medical </content>< 0.2 Center MG/DL<content styleCode="Italic s"> (0.0-0.3 MG/DL)</content> Bilirubin.total 0.2-1.3 <content [facility] [Mass/volume] in styleCode="Bold"> [facility] Serum or Plasma Bilirubin Total Medical </content>0.5 Center MG/DL<content styleCode="Italic s"> (0.2-1.3 MG/DL)</content> ID Date Data Source HematologyRou.[id number] 01/24/2019 08:15:00 PM EDT [facility] 0400 Name Value Range Interpretation Description [...] (0.0-0.3 KCUMM)</content > ID Date Data Source GFR(Creatinine).[id number] 01/24/2019 08:15:00 PM EDT [facility] 0-0400 Name Value Range Interpretation Code Description Data Pebbles rce(s) Supporting Document(s ) UNK > 60 Below low normal <content [facility] styleCode="Bold"> Medical Cent er EGFR </content>46 GFR L<content styleCode="Italic s"> (> 60 GFR)</content> ID Date Data Source Coagulation 01/24/2019 08:15:00 PM [facility] [id number] EDT Name Value Range Interpretation Description Data Sup porting Code Source(s) Document(s ) UNK 9.0-13.0 <content [facility] styleCode="[facility] d">[facility] </content>12.7 Center SEC<content styleCode="Zakia lics"> (9.0-13.0 SEC)</content> INR in 0.80-1.2 <content [facility] Platelet poor 0 styleCode="[facility] plasma by d">INR Medical Coagulation </content>1.14 Center assay #<content styleCode="Zakia lics"> (0.80-1.20 #)</content> ID Date Data Source [id number] 01/24/2019 08:15:00 PM EDT [facility] -0400 Name Value Range Interpretation Description Data Sup porting Code Source(s) Document(s ) UNK 30-110 <content [facility] styleCode="[facility] ">Amylase Center </content>38 IU/L<content styleCode="Ital ics"> (30-110 IU/L)</content> Lipase 23-300 <content [facility] [Enzymatic styleCode="[facility] activity/vo ">Lipase Center lume] in </content>37 Serum or IU/L<content Plasma styleCode="Ital ics"> (23-300 IU/L)</content> Lactate 0.7-2.0 Above upper panic <content [facility] [Mass/volum limits styleCode="[facility] e] in Serum ">Lactic Acid Center or Plasma </content><cont ent styleCode="Bold ">3.7 M[facility] HH</content><co ntent styleCode="Ital ics"> (0.7-2.0 MMOLL)</content > ID Date Data Source [id number] 01/24/2019 08:15:00 PM EDT [facility] Name Value Range Interpretation Description [...] </content>0.5 Center MG/DL<content styleCode="Italic s"> (0.2-1.3 MG/DL)</content> Procedure Social History Code Duration Value Status Description Data Source(s ) Smoking 03/24/2020 Former Smoker completed Former [facility]oker [facility] 05:35:00 PM EDT Medical C enter Smoking 03/24/2020 Former Smoker completed Former Smoker [facility] 05:35:00 PM EDT Medical C enter Smoking 03/24/2020 Former Smoker completed Former Smoker [facility] 05:31:00 PM EDT Medical C enter Smoking 03/23/2020 Former Smoker completed Former Smoker [facility] 10:56:00 PM EDT Medical C enter Smoking 03/23/2020 Former Smoker completed Former Smoker [facility] 09:56:00 PM EDT Medical C enter Smoking 03/23/2020 Former Smoker completed Former Smoker [facility] 05:56:00 PM EDT Medical C enter Smoking 03/23/2020 Former Smoker completed Former Smoker [facility] 05:53:00 PM EDT Medical C enter Smoking 03/22/2020 Former Smoker completed Former Smoker [facility] 08:26:00 PM EDT Medical C enter Smoking 03/22/2020 Former Smoker completed Former Smoker [facility] 07:02:00 PM EDT Medical C enter Smoking 03/22/2020 Former Smoker completed Former Smoker [facility] 06:59:00 PM EDT Medical C enter Smoking 03/17/2020 Former Smoker completed Former Smoker [facility] 01:41:00 PM EDT Medical C enter Smoking 03/17/2020 Former Smoker completed Former Smoker [facility] 08:42:00 AM EDT Medical C enter Smoking 03/16/2020 Former Smoker completed Former Smoker [facility] 06:02:00 PM EDT Medical C enter Smoking 03/16/2020 Former Smoker completed Former Smoker [facility] 06:02:00 PM EDT Medical C enter Smoking 03/13/2020 Former Smoker completed Former Smoker [facility] 11:51:00 PM EDT Medical C enter Smoking 03/13/2020 Former Smoker completed Former Smoker [facility] 11:08:00 PM EDT Medical C enter Smoking 03/13/2020 Former Smoker completed Former Smoker [facility] 11:05:00 PM EDT Medical C enter Smoking 03/13/2020 Former Smoker completed Former Smoker [facility] 01:12:00 AM EDT Medical C enter Smoking 03/13/2020 Former Smoker completed Former Smoker [facility] 12:00:00 AM EDT Medical C enter Smoking 03/12/2020 Former Smoker completed Former Smoker [facility] 11:50:00 PM EDT Medical C enter Smoking 03/12/2020 Former Smoker completed Former Smoker [facility] 01:08:00 AM EDT Medical C enter Smoking 03/11/2020 Former Smoker completed Former Smoker [facility] 07:46:00 PM EDT Medical C enter Smoking 03/11/2020 Former Smoker completed Former Smoker [facility] 07:46:00 PM EDT Medical C enter Smoking 03/07/2020 Former Smoker completed Former Smoker [facility] 01:03:00 AM EDT Medical C enter Smoking 03/07/2020 Former Smoker completed Former Smoker [facility] 12:29:00 AM EDT Medical C enter Smoking 03/05/2020 Former Smoker completed Former Smoker [facility] 07:40:00 PM EDT Medical C enter Smoking 03/05/2020 Former Smoker completed Former Smoker [facility] 07:28:00 PM EDT Medical C enter Smoking 03/05/2020 Former Smoker completed Former Smoker [facility] 07:21:00 PM EDT Medical C enter Smoking 03/03/2020 Former Smoker completed Former Smoker [facility] 08:26:00 PM EDT Medical C enter Smoking 03/03/2020 Former Smoker completed Former Smoker [facility] 08:05:00 PM EDT Medical C enter Smoking 03/03/2020 Former Smoker completed Former Sm[facility] 08:02:00 PM EDT Medical C enter Smoking 03/01/2020 Former Smoker completed Former Smoker [facility] 01:11:00 PM EDT Medical C enter Smoking 03/01/2020 Former Smoker completed Former Smoker [facility] 12:40:00 PM EDT Medical C enter Smoking 03/01/2020 Former Smoker completed Former Smoker [facility] 12:33:00 PM EDT Medical C enter Smoking 02/29/2020 Former Smoker completed Former Smoker [facility] 01:00:00 PM EDT Medical C enter Smoking 02/29/2020 Former Smoker completed Former Smoker [facility] 12:40:00 PM EDT Medical C enter Smoking 02/29/2020 Former Smoker completed Former Smoker [facility] 12:40:00 PM EDT Medical C enter Smoking 02/29/2020 Former Smoker completed Former Smoker [facility] 05:13:00 AM EDT Medical C enter Smoking 02/28/2020 Former Smoker completed Former Smoker [facility] 08:51:00 PM EDT Medical C enter Smoking 02/28/2020 Former Smoker completed Former Smoker [facility] 08:51:00 PM EDT Medical C enter Smoking 02/28/2020 Former Smoker completed Former Smoker [facility] 11:30:00 AM EDT Medical C enter Smoking 02/28/2020 Former Smoker completed Former Smoker [facility] 11:24:00 AM EDT Medical C enter Smoking 02/28/2020 Former Smoker completed Former Smoker [facility] 11:24:00 AM EDT Medical C enter Smoking 02/27/2020 Former Smoker completed Former Smoker [facility] 11:35:00 PM EDT Medical C enter Smoking 02/27/2020 Former Smoker completed Former Smoker [facility] 08:29:00 PM EDT Medical C enter Smoking 02/27/2020 Former Smoker completed Former Smoker [facility] 08:27:00 PM EDT Medical C enter Smoking 02/10/2020 Former Smoker completed Former Smoker [facility] 04:52:00 AM EDT Medical C enter Smoking 02/09/2020 Former Smoker completed Former Smoker [facility] 09:51:00 PM EDT Medical C enter Smoking 02/09/2020 Former Smoker completed Former Smoker [facility] 09:49:00 PM EDT Medical C enter Smoking 02/09/2020 Former Smoker completed Former Smoker [facility] 06:13:00 AM EDT Medical C enter Smoking 02/09/2020 Former Smoker completed Former Smoker [facility] 03:00:00 AM EDT Medical C enter Smoking 02/09/2020 Former Smoker completed Former Smoker [facility] 02:50:00 AM EDT Medical C enter Smoking 02/04/2020 Former Smoker completed Former Sm[facility] 11:50:00 AM EDT Medical C enter Smoking 02/04/2020 Former Smoker completed Former Smoker [facility] 11:29:00 AM EDT Medical C enter Smoking 02/04/2020 Former Smoker completed Former Smoker [facility] 11:26:00 AM EDT Medical C enter Smoking 01/25/2020 Former Smoker completed Former Smoker [facility] 06:44:00 PM EDT Medical C enter Smoking 01/25/2020 Former Smoker completed Former Smoker [facility] 06:23:00 PM EDT Medical C enter Smoking 01/25/2020 Former Smoker completed Former Sm[facility] 06:20:00 PM EDT Medical C enter Smoking 01/24/2020 Former Smoker completed Former Smoker [facility] 08:50:00 PM EDT Medical C enter Smoking 01/24/2020 Former Smoker completed Former Sm[facility] 01:56:00 PM EDT Medical C enter Smoking 01/24/2020 Former Smoker completed Former Smoker [facility] 01:45:00 PM EDT Medical C enter Smoking 01/20/2020 Former Smoker completed Former Sm[facility] 05:45:00 PM EDT Medical C enter Smoking 01/20/2020 Former Smoker completed Former Smoker [facility] 03:50:00 PM EDT Medical C enter Smoking 01/19/2020 Former Smoker completed Former Smoker [facility] 11:23:00 AM EDT Medical C enter Smoking 01/19/2020 Former Smoker completed Former Smoker [facility] 11:23:00 AM EDT Medical C enter Smoking 01/19/2020 Former Smoker completed Former Sm[facility] 11:17:00 AM EDT Medical C enter Smoking 01/18/2020 Former Smoker completed Former Smoker [facility] 10:20:00 PM EDT Medical C enter Smoking 01/18/2020 Former Smoker completed Former Smoker [facility] 10:02:00 PM EDT Medical C enter Smoking 01/18/2020 Former Smoker completed Former Sm[facility] 09:47:00 PM EDT Medical C enter Smoking 01/06/2020 Former Smoker completed Former Sm[facility] 01:36:00 PM EDT Medical C enter Smoking 01/06/2020 Former Smoker completed Former Sm[facility] 01:13:00 PM EDT Medical C enter Smoking 01/05/2020 Former Smoker completed Former Smoker [facility] 09:21:00 PM EDT Medical C enter Smoking 01/05/2020 Former Smoker completed Former Sm[facility] 09:00:00 PM EDT Medical C enter Smoking 01/05/2020 Former Smoker completed Former Smoker [facility] 08:52:00 PM EDT Medical C enter Smoking 01/05/2020 Former Smoker completed Former Smoker [facility] 03:29:00 PM EDT Medical C enter Smoking 01/05/2020 Former Smoker completed Former Smoker [facility] 02:32:00 PM EDT Medical C enter Smoking 01/03/2020 Former Smoker completed Former Smoker [facility] 09:19:00 PM EDT Medical C enter Smoking 01/03/2020 Former Smoker completed Former Smoker [facility] 08:58:00 PM EDT Medical C enter Smoking 01/03/2020 Former Smoker completed Former Smoker [facility] 08:54:00 PM EDT Medical C enter Smoking 12/30/2019 Former Smoker completed Former Smoker [facility] 09:04:00 PM EDT Medical C enter Smoking 12/30/2019 Former Smoker completed Former Smoker [facility] 06:00:00 PM EDT Medical C enter Smoking 12/30/2019 Former Smoker completed Former Smoker [facility] 05:18:00 PM EDT Medical C enter Smoking 12/29/2019 Former Smoker completed Former Smoker [facility] 06:21:00 PM EDT Medical C enter Smoking 12/29/2019 Former Smoker completed Former Sm[facility] 04:10:00 PM EDT Medical C enter Smoking 12/29/2019 Former Smoker completed Former Smoker [facility] 03:50:00 PM EDT Medical C enter Smoking 12/29/2019 Former Smoker completed Former Smoker [facility] 03:38:00 AM EDT Medical C enter Smoking 12/28/2019 Former Smoker completed Former Smoker [facility] 10:41:00 PM EDT Medical C enter Smoking 12/28/2019 Former Smoker completed Former Smoker [facility] 10:38:00 PM EDT Medical C enter Smoking 12/28/2019 Former Smoker completed Former Smoker [facility] 01:40:00 AM EDT Medical C enter Smoking 12/28/2019 Former Smoker completed Former Smoker [facility] 01:32:00 AM EDT Medical C enter Smoking 12/27/2019 Former Smoker completed Former Smoker [facility] 07:45:00 PM EDT Medical C enter Smoking 12/27/2019 Former Smoker completed Former Smoker [facility] 06:39:00 PM EDT Medical C enter Smoking 12/27/2019 Former Smoker completed Former Smoker [facility] 06:30:00 PM EDT Medical C enter Smoking 12/27/2019 Former Smoker completed Former Smoker [facility] 12:12:00 PM EDT Medical C enter Smoking 12/27/2019 Former Smoker completed Former Smoker [facility] 12:10:00 PM EDT Medical C enter Smoking 12/27/2019 Former Smoker completed Former Sm[facility] 12:07:00 PM EDT Medical C enter Smoking 12/24/2019 Former Smoker completed Former Smoker [facility] 11:25:00 PM EDT Medical C enter Smoking 12/24/2019 Former Smoker completed Former Smoker [facility] 11:19:00 PM EDT Medical C enter Smoking 12/22/2019 Former Smoker completed Former Smoker [facility] 04:56:00 PM EDT Medical C enter Smoking 12/22/2019 Former Smoker completed Former Smoker [facility] 04:48:00 PM EDT Medical C enter Smoking 12/22/2019 Former Smoker completed Former Smoker [facility] 04:47:00 PM EDT Medical C enter Smoking 12/20/2019 Former Smoker completed Former Smoker [facility] 09:28:00 PM EDT Medical C enter Smoking 12/20/2019 Former Smoker completed Former Smoker [facility] 09:17:00 PM EDT Medical C enter Smoking 12/20/2019 Former Smoker completed Former Smoker [facility] 08:58:00 PM EDT Medical C enter Smoking 12/17/2019 Former Smoker completed Former Smoker [facility] 11:41:00 PM EDT Medical C enter Smoking 12/17/2019 Former Smoker completed Former Smoker [facility] 04:43:00 PM EDT Medical C enter Smoking 12/17/2019 Former Smoker completed Former Smoker [facility] 04:39:00 PM EDT Medical C enter Smoking 12/16/2019 Former Smoker completed Former Smoker [facility] 09:00:00 PM EDT Medical C enter Smoking 12/16/2019 Former Smoker completed Former Smoker [facility] 07:26:00 PM EDT Medical C enter Smoking 12/16/2019 Former Smoker completed Former Smoker [facility] 03:51:00 PM EDT Medical C enter Smoking 12/16/2019 Former Smoker completed Former Smoker [facility] 02:14:00 PM EDT Medical C enter Smoking 12/16/2019 Former Smoker completed Former Smoker [facility] 02:11:00 PM EDT Medical C enter Smoking 12/14/2019 Former Smoker completed Former Smoker [facility] 03:51:00 PM EDT Medical C enter Smoking 12/14/2019 Former Smoker completed Former Smoker [facility] 03:01:00 PM EDT Medical C enter Smoking 12/14/2019 Former Smoker completed Former Smoker [facility] 03:00:00 PM EDT Medical C enter Smoking 12/10/2019 Former Smoker completed Former Smoker [facility] 06:52:00 PM EDT Medical C enter Smoking 12/10/2019 Former Smoker completed Former Smoker [facility] 06:40:00 PM EDT Medical C enter Smoking 12/09/2019 Former Smoker completed Former Smoker [facility] 03:16:00 PM EDT Medical C enter Smoking 12/09/2019 Former Smoker completed Former Smoker [facility] 02:41:00 PM EDT Medical C enter Smoking 12/09/2019 Former Smoker completed Former Smoker [facility] 12:22:00 AM EDT Medical C enter Smoking 12/08/2019 Former Smoker completed Former Smoker [facility] 10:45:00 PM EDT Medical C enter Smoking 12/08/2019 Former Smoker completed Former Smoker [facility] 01:23:00 PM EDT Medical C enter Smoking 12/08/2019 Former Smoker completed Former Smoker [facility] 01:13:00 PM EDT Medical C enter Smoking 12/08/2019 Former Smoker completed Former Smoker [facility] 01:10:00 PM EDT Medical C enter Smoking 12/08/2019 Former Smoker completed Former Smoker [facility] 02:18:00 AM EDT Medical C enter Smoking 12/08/2019 Former Smoker completed Former Smoker [facility] 01:30:00 AM EDT Medical C enter Smoking 12/08/2019 Former Smoker completed Former Smoker [facility] 01:27:00 AM EDT Medical C enter Smoking 12/07/2019 Former Smoker completed Former Smoker [facility] 04:27:00 PM EDT Medical C enter Smoking 12/07/2019 Former Smoker completed Former Smoker [facility] 02:22:00 PM EDT Medical C enter Smoking 12/06/2019 Former Smoker completed Former Smoker [facility] 06:19:00 PM EDT Medical C enter Smoking 12/06/2019 Former Smoker completed Former Smoker [facility] 06:11:00 PM EDT Medical C enter Smoking 12/04/2019 Former Smoker completed Former Smoker [facility] 09:42:00 PM EDT Medical C enter Smoking 12/04/2019 Former Smoker completed Former Smoker [facility] 09:13:00 PM EDT Medical C enter Smoking 12/03/2019 Former Smoker completed Former Smoker [facility] 08:08:00 PM EDT Medical C enter Smoking 12/03/2019 Former Smoker completed Former Smoker [facility] 02:00:00 PM EDT Medical C enter Smoking 12/03/2019 Former Smoker completed Former Smoker [facility] 01:50:00 PM EDT Medical C enter Smoking 12/03/2019 Former Smoker completed Former Smoker [facility] 01:04:00 AM EDT Medical C enter Smoking 12/02/2019 Former Smoker completed Former Smoker [facility] 08:34:00 PM EDT Medical C enter Smoking 12/02/2019 Former Smoker completed Former Smoker [facility] 08:22:00 PM EDT Medical C enter Smoking 11/30/2019 Former Smoker completed Former Smoker [facility] 09:40:00 PM EDT Medical C enter Smoking 11/30/2019 Former Smoker completed Former Smoker [facility] 04:42:00 PM EDT Medical C enter Smoking 11/30/2019 Former Smoker completed Former Smoker [facility] 04:42:00 PM EDT Medical C enter Smoking 11/30/2019 Former Smoker completed Former Smoker [facility] 06:25:00 AM EDT Medical C enter Smoking 11/30/2019 Former Smoker completed Former Smoker [facility] 04:49:00 AM EDT Medical C enter Smoking 11/30/2019 Former Smoker completed Former Smoker [facility] 03:15:00 AM EDT Medical C enter Smoking 11/29/2019 Former Smoker completed Former Smoker [facility] 06:25:00 PM EDT Medical C enter Smoking 11/29/2019 Former Smoker completed Former Smoker [facility] 04:54:00 PM EDT Medical C enter Smoking 11/25/2019 Former Smoker completed Former Smoker [facility] 11:31:00 PM EDT Medical C enter Smoking 11/25/2019 Former Smoker completed Former Smoker [facility] 10:11:00 PM EDT Medical C enter Smoking 11/25/2019 Former Smoker completed Former Smoker [facility] 01:34:00 PM EDT Medical C enter Smoking 11/25/2019 Former Smoker completed Former Smoker [facility] 12:13:00 PM EDT Medical C enter Smoking 11/25/2019 Former Smoker completed Former Smoker [facility] 01:19:00 AM EDT Medical C enter Smoking 11/25/2019 Former Smoker completed Former Smoker [facility] 01:11:00 AM EDT Medical C enter Smoking 11/24/2019 Former Smoker completed Former Smoker [facility] 11:51:00 PM EDT Medical C enter Smoking 11/24/2019 Former Smoker completed Former Smoker [facility] 02:14:00 PM EDT Medical C enter Smoking 11/24/2019 Former Smoker completed Former Smoker [facility] 02:14:00 PM EDT Medical C enter Smoking 11/24/2019 Former Smoker completed Former Smoker [facility] 02:07:00 PM EDT Medical C enter Smoking 11/23/2019 Former Smoker completed Former Smoker [facility] 07:07:00 PM EDT Medical C enter Smoking 11/23/2019 Former Smoker completed Former Smoker [facility] 05:30:00 PM EDT Medical C enter Smoking 11/23/2019 Former Smoker completed Former Smoker [facility] 05:25:00 PM EDT Medical C enter Smoking 11/23/2019 Former Smoker completed Former Smoker [facility] 02:21:00 AM EDT Medical C enter Smoking 11/22/2019 Former Smoker completed Former Smoker [facility] 09:07:00 PM EDT Medical C enter Smoking 11/22/2019 Former Smoker completed Former Smoker [facility] 08:32:00 PM EDT Medical C enter Smoking 11/22/2019 Former Smoker completed Former Smoker [facility] 02:37:00 PM EDT Medical C enter Smoking 11/22/2019 Former Smoker completed Former Smoker [facility] 01:49:00 PM EDT Medical C enter Smoking 11/22/2019 Former Smoker completed Former Smoker [facility] 01:40:00 PM EDT Medical C enter Smoking 11/20/2019 Former Smoker completed Former Smoker [facility] 04:17:00 PM EDT Medical C enter Smoking 11/20/2019 Former Smoker completed Former Smoker [facility] 04:05:00 PM EDT Medical C enter Smoking 11/20/2019 Former Smoker completed Former Smoker [facility] 04:00:00 PM EDT Medical C enter Smoking 11/18/2019 Former Smoker completed Former Smoker [facility] 08:57:00 PM EDT Medical C enter Smoking 11/18/2019 Former Smoker completed Former Smoker [facility] 01:47:00 PM EDT Medical C enter Smoking 11/18/2019 Former Smoker completed Former Smoker [facility] 01:29:00 PM EDT Medical C enter Smoking 11/16/2019 Former Smoker completed Former Smoker [facility] 09:10:00 PM EDT Medical C enter Smoking 11/16/2019 Former Smoker completed Former Smoker [facility] 09:00:00 PM EDT Medical C enter Smoking 11/16/2019 Former Smoker completed Former Smoker [facility] 08:55:00 PM EDT Medical C enter Smoking 11/16/2019 Former Smoker completed Former Smoker [facility] 02:36:00 PM EDT Medical C enter Smoking 11/16/2019 Former Smoker completed Former Smoker [facility] 02:04:00 PM EDT Medical C enter Smoking 11/10/2019 Former Smoker completed Former Smoker [facility] 04:49:00 PM EDT Medical C enter Smoking 11/10/2019 Former Smoker completed Former Smoker [facility] 04:49:00 PM EDT Medical C enter Smoking 11/10/2019 Former Smoker completed Former Smoker [facility] 04:29:00 PM EDT Medical C enter Smoking 11/08/2019 Former Smoker completed Former Smoker [facility] 08:01:00 PM EDT Medical C enter Smoking 11/08/2019 Former Smoker completed Former Smoker [facility] 02:44:00 PM EDT Medical C enter Smoking 11/08/2019 Former Smoker completed Former Smoker [facility] 02:41:00 PM EDT Medical C enter Smoking 11/07/2019 Former Smoker completed Former Smoker [facility] 10:57:00 PM EDT Medical C enter Smoking 11/05/2019 Former Smoker completed Former Smoker [facility] 02:08:00 PM EDT Medical C enter Smoking 11/05/2019 Former Smoker completed Former Smoker [facility] 01:41:00 PM EDT Medical C enter Smoking 11/03/2019 Former Smoker completed Former Smoker [facility] 09:41:00 PM EDT Medical C enter Smoking 11/03/2019 Former Smoker completed Former Smoker [facility] 09:36:00 PM EDT Medical C enter Smoking 11/02/2019 Former Smoker completed Former Smoker [facility] 07:40:00 PM EDT Medical C enter Smoking 11/02/2019 Former Smoker completed Former Smoker [facility] 07:30:00 PM EDT Medical C enter Smoking 11/02/2019 Former Smoker completed Former Smoker [facility] 07:07:00 PM EDT Medical C enter Smoking 11/01/2019 Former Smoker completed Former Smoker [facility] 02:23:00 PM EDT Medical C enter Smoking 11/01/2019 Former Smoker completed Former Smoker [facility] 02:14:00 PM EDT Medical C enter Smoking 10/31/2019 Former Smoker completed Former Smoker [facility] 08:14:00 PM EDT Medical C enter Smoking 10/31/2019 Former Smoker completed Former Smoker [facility] 06:30:00 PM EDT Medical C enter Smoking 10/31/2019 Former Smoker completed Former Smoker [facility] 06:19:00 PM EDT Medical C enter Smoking 10/30/2019 Former Smoker completed Former Smoker [facility] 04:02:00 PM EDT Medical C enter Smoking 10/30/2019 Former Smoker completed Former Smoker [facility] 03:20:00 PM EDT Medical C enter Smoking 10/30/2019 Former Smoker completed Former Smoker [facility] 03:12:00 PM EDT Medical C enter Smoking 10/28/2019 Former Smoker completed Former Smoker [facility] 09:18:00 PM EDT Medical C enter Smoking 10/28/2019 Former Smoker completed Former Smoker [facility] 09:03:00 PM EDT Medical C enter Smoking 10/28/2019 Former Smoker completed Former Smoker [facility] 08:56:00 PM EDT Medical C enter Smoking 10/27/2019 Former Smoker completed Former Smoker [facility] 06:59:00 PM EDT Medical C enter Smoking 10/27/2019 Former Smoker completed Former Smoker [facility] 06:57:00 PM EDT Medical C enter Smoking 10/27/2019 Former Smoker completed Former Smoker [facility] 06:52:00 PM EDT Medical C enter Smoking 10/22/2019 Former Smoker completed Former Smoker [facility] 06:15:00 PM EDT Medical C enter Smoking 10/22/2019 Former Smoker completed Former Smoker [facility] 06:10:00 PM EDT Medical C enter Smoking 10/22/2019 Former Smoker completed Former Smoker [facility] 01:56:00 AM EDT Medical C enter Smoking 10/22/2019 Former Smoker completed Former Smoker [facility] 01:24:00 AM EDT Medical C enter Smoking 10/21/2019 Former Smoker completed Former Smoker [facility] 04:00:00 PM EDT Medical C enter Smoking 10/21/2019 Former Smoker completed Former [facility] 03:44:00 PM EDT [facility] enter Smoking 10/21/2019 Former Smoker completed Former [facility] 03:41:00 PM EDT [facility] enter Smoking 10/21/2019 Former Smoker completed Former [facility] 12:28:00 AM EDT [facility] enter Smoking 10/21/2019 Former Smoker completed Former [facility] 12:24:00 AM EDT [facility] enter Smoking 10/19/2019 Former Smoker completed Former [facility] 08:42:00 PM EDT [facility] enter Smoking 10/19/2019 Former Smoker completed Former Sm[facility] 08:25:00 PM EDT [facility] enter Smoking 10/19/2019 Former Smoker completed Former [facility] 08:21:00 PM EDT [facility] enter Smoking 10/18/2019 Former Smoker completed Former [facility] 08:35:00 AM EDT [facility] enter Smoking 10/18/2019 Former Smoker completed Former [facility] 07:07:00 AM EDT [facility] enter Smoking 10/18/2019 Former Smoker completed Former [facility] 06:31:00 AM EDT [facility] enter Smoking 10/17/2019 Former Smoker completed Former [facility] 10:32:00 PM EDT [facility] enter Smoking 10/17/2019 Former Smoker completed Former [facility] 08:30:00 PM EDT [facility] enter Smoking 10/17/2019 Former Smoker completed Former [facility] 08:27:00 PM EDT [facility] enter Smoking 10/15/2019 Former Smoker completed Former Sm[facility] 01:49:00 PM EDT [facility] enter Smoking 10/15/2019 Former Smoker completed Former [facility] 01:34:00 PM EDT [facility] enter Smoking 10/15/2019 Former Smoker completed Former [facility] 01:28:00 PM EDT [facility] enter Smoking 10/13/2019 Former Smoker completed Former Sm[facility] 07:42:00 PM EDT [facility] enter Smoking 10/13/2019 Former Smoker completed Former [facility] 07:38:00 PM EDT [facility] enter Smoking 10/13/2019 Former Smoker completed Former [facility] 07:36:00 PM EDT [facility] enter Smoking 10/13/2019 Former Smoker completed Former Sm[facility] 02:20:00 PM EDT [facility] enter Smoking 10/13/2019 Former Smoker completed Former Sm[facility] 08:08:00 AM EDT [facility] enter Smoking 10/13/2019 Former Smoker completed Former Sm[facility] 08:02:00 AM EDT [facility] enter Smoking 10/12/2019 Former Smoker completed Former [facility] 01:43:00 AM EDT [facility] enter Smoking 10/12/2019 Former Smoker completed Former [facility] 12:53:00 AM EDT [facility] enter Smoking 10/12/2019 Former Smoker completed Former [facility] 12:49:00 AM EDT [facility] enter Smoking 10/11/2019 Former Smoker completed Former Sm[facility] 02:50:00 PM EDT [facility] enter Smoking 10/11/2019 Former Smoker completed Former [facility] 02:44:00 PM EDT [facility] enter Smoking 10/06/2019 Former Smoker completed Former Sm[facility] 09:43:00 AM EDT [facility] enter Smoking 10/06/2019 Former Smoker completed Former [facility] 09:36:00 AM EDT [facility] enter Smoking 10/05/2019 Former Smoker completed Former Sm[facility] 09:05:00 PM EDT [facility] enter Smoking 10/05/2019 Former Smoker completed Former [facility] 08:54:00 PM EDT [facility] enter Smoking 10/05/2019 Former Smoker completed Former Sm[facility] 08:52:00 PM EDT [facility] enter Smoking 09/19/2019 Former Smoker completed Former [facility] 07:45:00 AM EDT [facility] enter Smoking 09/18/2019 Occasional Smoker completed Occasional Smoker [facility] 04:16:00 AM EDT [facility] enter Smoking 09/17/2019 Former Smoker completed Former Sm[facility] 11:35:00 PM EDT [facility] enter Smoking 09/17/2019 Former Smoker completed Former Sm[facility] 11:28:00 PM EDT [facility] enter Smoking 09/17/2019 Former Smoker completed Former Sm[facility] 06:43:00 PM EDT [facility] enter Smoking 09/17/2019 Former Smoker completed Former Sm[facility] 06:10:00 PM EDT [facility] enter Smoking 09/17/2019 Former Smoker completed Former Sm[facility] 06:01:00 PM EDT [facility] enter Smoking 09/15/2019 Former Smoker completed Former Sm[facility] 06:32:00 AM EDT [facility] enter Smoking 09/14/2019 Former Smoker completed Former [facility] 10:00:00 PM EDT [facility] enter Smoking 09/14/2019 Former Smoker completed Former Sm[facility] 09:36:00 PM EDT [facility] enter Smoking 09/14/2019 Former Smoker completed Former Sm[facility] 09:24:00 PM EDT [facility] enter Smoking 09/13/2019 Former Smoker completed Former Sm[facility] 08:02:00 PM EDT [facility] enter Smoking 09/13/2019 Former Smoker completed Former Smoker [facility] 07:43:00 PM EDT [facility] enter Smoking 09/13/2019 Former Smoker completed Former Sm[facility] 09:11:00 AM EDT [facility] enter Smoking 09/13/2019 Former Smoker completed Former Sm[facility] 09:02:00 AM EDT [facility] enter Smoking 09/13/2019 Former Smoker completed Former Sm[facility] 07:14:00 AM EDT [facility] enter Smoking 09/12/2019 Former Smoker completed [facility] 07:21:00 AM EDT [facility] enter Smoking 09/11/2019 Former Smoker completed Former Sm[facility] 11:00:00 PM EDT [facility] enter Smoking 09/11/2019 Former Smoker completed Former Sm[facility] 09:46:00 PM EDT [facility] enter Smoking 09/11/2019 Former Smoker completed Former Sm[facility] 04:22:00 PM EDT [facility] enter Smoking 09/11/2019 Former Smoker completed Former Sm[facility] 04:15:00 PM EDT [facility] enter Smoking 09/10/2019 Former Smoker completed Former Sm[facility] 09:00:00 PM EDT [facility] enter Smoking 09/10/2019 Former Smoker completed Former Sm[facility] 05:45:00 PM EDT [facility] enter Smoking 09/08/2019 Former Smoker completed Former Smoker [facility] 08:56:00 PM EDT [facility] enter Smoking 09/08/2019 Former Smoker completed Former Smoker [facility] 08:54:00 PM EDT [facility] enter Smoking 09/08/2019 Former Smoker completed Former Smoker [facility] 08:43:00 PM EDT [facility] enter Smoking 09/08/2019 Former Smoker completed Former Sm[facility] 01:57:00 AM EDT [facility] enter Smoking 09/07/2019 Former Smoker completed Former Smoker [facility] 10:22:00 PM EDT [facility] enter Smoking 09/07/2019 Former Smoker completed Former Sm[facility] 10:19:00 PM EDT [facility] enter Smoking 09/05/2019 Occasional Smoker completed Occasional Smoker [facility] 05:58:00 PM EDT [facility] enter Smoking 09/05/2019 Former Smoker completed Former Smoker [facility] 02:09:00 PM EDT [facility] enter Smoking 09/05/2019 Former Smoker completed Former Smoker [facility] 08:05:00 AM EDT [facility] enter Smoking 09/05/2019 Denies Ever completed Denies Ever Smoked [facility] 07:53:00 AM EDT [facility]oked [facility] enter Smoking 09/04/2019 Denies Ever completed Denies Ever Smoked [facility] 10:45:00 PM EDT [facility]oked [facility] enter Smoking 09/04/2019 Denies Ever completed Denies Ever Smoked [facility] 10:30:00 PM EDT [facility]oked [facility] enter Smoking 09/04/2019 Denies Ever completed Denies Ever Smoked [facility] 10:24:00 PM EDT [facility]oked [facility] enter Smoking 09/04/2019 Denies Ever completed Denies Ever Smoked [facility] 03:33:00 PM EDT [facility]oked [facility] enter Smoking 09/04/2019 Denies Ever completed Denies Ever Smoked [facility] 03:03:00 PM EDT [facility]oked [facility] enter Smoking 09/04/2019 Denies Ever completed Denies Ever Smoked [facility] 01:35:00 AM EDT [facility]oked [facility] enter Smoking 09/03/2019 Denies Ever completed Denies Ever Smoked [facility] 08:53:00 PM EDT [facility] enter Smoking 09/03/2019 Denies Ever completed Denies Ever Smoked [facility] 08:51:00 PM EDT [facility]oked [facility] enter Smoking 09/02/2019 Denies Ever completed Denies Ever Smoked [facility] 05:11:00 PM EDT [facility] enter Smoking 09/02/2019 Denies Ever completed Denies Ever Smoked [facility] 05:01:00 PM EDT [facility] enter Smoking 09/02/2019 Denies Ever completed Denies Ever Smoked [facility] 04:50:00 PM EDT [facility]oked [facility] enter Smoking 09/01/2019 Denies Ever completed Denies Ever Smoked [facility] 10:50:00 PM EDT [facility] enter Smoking 09/01/2019 Denies Ever completed Denies Ever Smoked [facility] 10:43:00 PM EDT [facility]oked [facility] enter Smoking 09/01/2019 Denies Ever completed Denies Ever Smoked [facility] 10:41:00 PM EDT [facility]oked [facility] enter Smoking 09/01/2019 Denies Ever completed Denies Ever Smoked [facility] 01:15:00 PM EDT [facility] enter Smoking 09/01/2019 Denies Ever completed Denies Ever Smoked [facility] 12:57:00 PM EDT [facility]oked [facility] enter Smoking 09/01/2019 Denies Ever completed Denies Ever Smoked [facility] 12:51:00 PM EDT [facility]oked [facility] enter Smoking 08/31/2019 Denies Ever completed Denies Ever Smoked [facility] 10:08:00 PM EDT [facility]oked [facility] enter Smoking 08/31/2019 Denies Ever completed Denies Ever Smoked [facility] 09:53:00 PM EDT Smoked [facility] enter Smoking 08/31/2019 Denies Ever completed Denies Ever Smoked [facility] 08:28:00 PM EDT [facility]oked [facility] enter Smoking 08/31/2019 Denies Ever completed Denies Ever Smoked [facility] 07:56:00 PM EDT [facility]oked [facility] enter Smoking 08/30/2019 Denies Ever completed Denies Ever Smoked [facility] 06:05:00 AM EDT [facility]oked [facility] enter Smoking 08/29/2019 Denies Ever completed Denies Ever Smoked [facility] 08:32:00 PM EDT [facility]oked [facility] enter Smoking 08/29/2019 Denies Ever completed Denies Ever Smoked [facility] 08:19:00 PM EDT [facility]oked [facility] enter Smoking 08/29/2019 Denies Ever completed Denies Ever Smoked [facility] 08:16:00 PM EDT Smoked [facility] enter Smoking 08/28/2019 Denies Ever completed Denies Ever Smoked [facility] 10:29:00 PM EDT Smoked [facility] enter Smoking 08/28/2019 Denies Ever completed Denies Ever Smoked [facility] 10:06:00 PM EDT [facility]oked [facility] enter Smoking 08/28/2019 Denies Ever completed Denies Ever Smoked [facility] 09:00:00 PM EDT Smoked [facility] enter Smoking 08/27/2019 Denies Ever completed Denies Ever Smoked [facility] 09:05:00 PM EDT Smoked [facility] enter Smoking 08/27/2019 Denies Ever completed Denies Ever Smoked [facility] 08:50:00 PM EDT Smoked [facility] enter Smoking 08/27/2019 Denies Ever completed Denies Ever Smoked [facility] 08:45:00 PM EDT Smoked [facility] enter Smoking 08/27/2019 Denies Ever completed Denies Ever Smoked [facility] 12:00:00 PM EDT Smoked [facility] enter Smoking 08/27/2019 Denies Ever completed Denies Ever Smoked [facility] 06:20:00 AM EDT Smoked [facility] enter Smoking 08/27/2019 Denies Ever completed Denies Ever Smoked [facility] 05:45:00 AM EDT Smoked [facility] enter Smoking 08/27/2019 Denies Ever completed Denies Ever Smoked [facility] 05:40:00 AM EDT Smoked [facility] enter Smoking 08/25/2019 Denies Ever completed Denies Ever Smoked [facility] 05:24:00 PM EDT Smoked [facility] enter Smoking 08/25/2019 Denies Ever completed Denies Ever Smoked [facility] 05:24:00 PM EDT Smoked [facility] enter Smoking 08/25/2019 Denies Ever completed Denies Ever Smoked [facility] 05:00:00 PM EDT Smoked [facility] enter Smoking 08/24/2019 Denies Ever completed Denies Ever Smoked [facility] 07:23:00 PM EDT Smoked [facility] enter Smoking 08/24/2019 Denies Ever completed Denies Ever Smoked [facility] 06:55:00 PM EDT Smoked [facility] enter Smoking 08/23/2019 Denies Ever completed Denies Ever Smoked [facility] 07:52:00 PM EDT Smoked [facility] enter Smoking 08/23/2019 Denies Ever completed Denies Ever Smoked [facility] 06:55:00 PM EDT Smoked [facility] enter Smoking 08/23/2019 Denies Ever completed Denies Ever Smoked [facility] 06:45:00 PM EDT Smoked [facility] enter Smoking 08/23/2019 Denies Ever completed Denies Ever Smoked [facility] 03:41:00 AM EDT Smoked [facility] enter Smoking 08/23/2019 Denies Ever completed Denies Ever Smoked [facility] 12:02:00 AM EDT Smoked [facility] enter Smoking 08/22/2019 Denies Ever completed Denies Ever Smoked [facility] 11:04:00 PM EDT Smoked [facility] enter Smoking 08/21/2019 Denies Ever completed Denies Ever Smoked [facility] 10:47:00 PM EDT Smoked [facility] enter Smoking 08/21/2019 Denies Ever completed Denies Ever Smoked [facility] 09:18:00 PM EDT Smoked [facility] enter Smoking 08/20/2019 Denies Ever completed Denies Ever Smoked [facility] 04:32:00 PM EST Smoked [facility] enter Smoking 08/20/2019 Denies Ever completed Denies Ever Smoked [facility] 02:40:00 PM EST Smoked [facility] enter Smoking 08/20/2019 Denies Ever completed Denies Ever Smoked [facility] 02:30:00 PM EST Smoked [facility] enter Smoking 08/19/2019 Denies Ever completed Denies Ever Smoked [facility] 08:03:00 PM EST Smoked [facility] enter Smoking 08/19/2019 Denies Ever completed Denies Ever Smoked [facility] 06:55:00 PM EST Smoked [facility] enter Smoking 08/19/2019 Denies Ever completed Denies Ever Smoked [facility] 06:49:00 PM EST Smoked [facility] enter Smoking 08/19/2019 Denies Ever completed Denies Ever Smoked [facility] 03:04:00 PM EST Smoked [facility] enter Smoking 08/19/2019 Denies Ever completed Denies Ever Smoked [facility] 02:58:00 PM EST Smoked [facility] enter Smoking 08/18/2019 Denies Ever completed Denies Ever Smoked [facility] 04:18:00 PM EST Smoked [facility] enter Smoking 08/18/2019 Denies Ever completed Denies Ever Smoked [facility] 03:42:00 PM EST Smoked [facility] enter Smoking 08/18/2019 Denies Ever completed Denies Ever Smoked [facility] 03:38:00 PM EST Smoked [facility] enter Smoking 08/18/2019 Denies Ever completed Denies Ever Smoked [facility] 03:23:00 PM EST Smoked [facility] enter Smoking 08/17/2019 Denies Ever completed Denies Ever Smoked [facility] 09:00:00 PM EST Smoked [facility] enter Smoking 08/17/2019 Denies Ever completed Denies Ever Smoked [facility] 02:33:00 PM EST Smoked [facility] enter Smoking 08/17/2019 Denies Ever completed Denies Ever Smoked [facility] 02:33:00 PM EST Smoked [facility] enter Smoking 08/17/2019 Denies Ever completed Denies Ever Smoked [facility] 01:39:00 PM EST Smoked [facility] enter Smoking 08/17/2019 Denies Ever completed Denies Ever Smoked [facility] 02:14:00 AM EST Smoked [facility] enter Smoking 08/17/2019 Denies Ever completed Denies Ever Smoked [facility] 01:51:00 AM EST Smoked [facility] enter Smoking 08/17/2019 Denies Ever completed Denies Ever Smoked [facility] 01:48:00 AM EST Smoked [facility] enter Smoking 08/12/2019 Denies Ever completed Denies Ever Smoked [facility] 06:49:00 PM EST Smoked [facility] enter Smoking 08/12/2019 Denies Ever completed Denies Ever Smoked [facility] 06:30:00 PM EST Smoked [facility] enter Smoking 08/12/2019 Denies Ever completed Denies Ever Smoked [facility] 06:27:00 PM EST Smoked [facility] enter Smoking 08/11/2019 Denies Ever completed Denies Ever Smoked [facility] 05:21:00 PM EST Smoked [facility] enter Smoking 08/11/2019 Denies Ever completed Denies Ever Smoked [facility] 05:20:00 PM EST Smoked [facility] enter Smoking 08/11/2019 Denies Ever completed Denies Ever Smoked [facility] 05:13:00 PM EST Smoked [facility] enter Smoking 08/10/2019 Denies Ever completed Denies Ever Smoked [facility] 10:46:00 PM EST Smoked [facility] enter Smoking 08/10/2019 Denies Ever completed Denies Ever Smoked [facility] 10:41:00 PM EST Smoked [facility] enter Smoking 08/10/2019 Denies Ever completed Denies Ever Smoked [facility] 10:39:00 PM EST Smoked [facility] enter Smoking 08/10/2019 Denies Ever completed Denies Ever Smoked [facility] 04:30:00 PM EST Smoked [facility] enter Smoking 08/10/2019 Denies Ever completed Denies Ever Smoked [facility] 04:25:00 PM EST Smoked [facility] enter Smoking 08/10/2019 Denies Ever completed Denies Ever Smoked [facility] 04:24:00 PM EST Smoked [facility] enter Smoking 08/09/2019 Denies Ever completed Denies Ever Smoked [facility] 10:00:00 PM EST Smoked [facility] enter Smoking 08/09/2019 Denies Ever completed Denies Ever Smoked [facility] 09:46:00 PM EST Smoked [facility] enter Smoking 08/09/2019 Denies Ever completed Denies Ever Smoked [facility] 07:29:00 PM EST Smoked [facility] enter Smoking 08/09/2019 Denies Ever completed Denies Ever Smoked [facility] 09:47:00 AM EST Smoked [facility] enter Smoking 08/09/2019 Denies Ever completed Denies Ever Smoked [facility] 06:20:00 AM EST Smoked [facility] enter Smoking 08/08/2019 Denies Ever completed Denies Ever Smoked [facility] 04:53:00 PM EST Smoked [facility] enter Smoking 08/08/2019 Denies Ever completed Denies Ever Smoked [facility] 04:33:00 PM EST Smoked [facility] enter Smoking 08/08/2019 Denies Ever completed Denies Ever Smoked [facility] 04:29:00 PM EST Smoked [facility] enter Smoking 08/06/2019 Denies Ever completed Denies Ever Smoked [facility] 10:48:00 PM EST Smoked [facility] enter Smoking 08/06/2019 Denies Ever completed Denies Ever Smoked [facility] 04:22:00 PM EST Smoked [facility] enter Smoking 08/06/2019 Denies Ever completed Denies Ever Smoked [facility] 04:08:00 PM EST Smoked [facility] enter Smoking 08/01/2019 Denies Ever completed Denies Ever Smoked [facility] 08:10:00 PM EST Smoked [facility] enter Smoking 08/01/2019 Denies Ever completed Denies Ever Smoked [facility] 06:56:00 PM EST Smoked [facility] enter Smoking 07/31/2019 Denies Ever completed Denies Ever Smoked [facility] 11:52:00 PM EST Smoked [facility] enter Smoking 07/31/2019 Denies Ever completed Denies Ever Smoked [facility] 11:50:00 PM EST Smoked [facility] enter Smoking 07/31/2019 Denies Ever completed Denies Ever Smoked [facility] 11:44:00 PM EST Smoked [facility] enter Smoking 07/31/2019 Denies Ever completed Denies Ever Smoked [facility] 06:23:00 PM EST Smoked [facility] enter Smoking 07/31/2019 Denies Ever completed Denies Ever Smoked [facility] 06:03:00 PM EST Smoked [facility] enter Smoking 07/30/2019 Denies Ever completed Denies Ever Smoked [facility] 10:13:00 PM EST Smoked [facility] enter Smoking 07/30/2019 Denies Ever completed Denies Ever Smoked [facility] 07:07:00 PM EST Smoked [facility] enter Smoking 07/30/2019 Denies Ever completed Denies Ever Smoked [facility] 07:03:00 PM EST Smoked [facility] enter Smoking 07/29/2019 Denies Ever completed Denies Ever Smoked [facility] 10:25:00 PM EST Smoked [facility] enter Smoking 07/29/2019 Denies Ever completed Denies Ever Smoked [facility] 10:10:00 PM EST Smoked [facility] enter Smoking 07/29/2019 Denies Ever completed Denies Ever Smoked [facility] 10:05:00 PM EST Smoked [facility] enter Smoking 07/28/2019 Denies Ever completed Denies Ever Smoked [facility] 05:15:00 PM EST Smoked [facility] enter Smoking 07/28/2019 Denies Ever completed Denies Ever Smoked [facility] 03:00:00 PM EST Smoked [facility] enter Smoking 07/28/2019 Denies Ever completed Denies Ever Smoked [facility] 02:56:00 PM EST Smoked [facility] enter Smoking 07/28/2019 Denies Ever completed Denies Ever Smoked [facility] 02:50:00 PM EST Smoked [facility] enter Smoking 07/28/2019 Denies Ever completed Denies Ever Smoked [facility] 09:29:00 AM EST Smoked [facility] enter Smoking 07/28/2019 Denies Ever completed Denies Ever Smoked [facility] 07:03:00 AM EST Smoked [facility] enter Smoking 07/28/2019 Denies Ever completed Denies Ever Smoked [facility] 06:09:00 AM EST Smoked [facility] enter Smoking 07/28/2019 Denies Ever completed Denies Ever Smoked [facility] 03:27:00 AM EST Smoked [facility] enter Smoking 07/28/2019 Denies Ever completed Denies Ever Smoked [facility] 03:21:00 AM EST Smoked [facility] enter Smoking 07/27/2019 Denies Ever completed Denies Ever Smoked [facility] 04:01:00 PM EST Smoked [facility] enter Smoking 07/27/2019 Denies Ever completed Denies Ever Smoked [facility] 03:35:00 PM EST Smoked [facility] enter Smoking 07/26/2019 Denies Ever completed Denies Ever Smoked [facility] 02:50:00 PM EST Smoked [facility] enter Smoking 07/26/2019 Denies Ever completed Denies Ever Smoked [facility] 02:46:00 PM EST Smoked [facility] enter Smoking 07/26/2019 Denies Ever completed Denies Ever Smoked [facility] 02:40:00 PM EST Smoked [facility] enter Smoking 07/22/2019 Denies Ever completed Denies Ever Smoked [facility] 12:52:00 AM EST Smoked [facility] enter Smoking 07/22/2019 Denies Ever completed Denies Ever Smoked [facility] 12:35:00 AM EST Smoked [facility] enter Smoking 07/22/2019 Denies Ever completed Denies Ever Smoked [facility] 12:23:00 AM EST Smoked [facility] enter Smoking 07/17/2019 Denies Ever completed Denies Ever Smoked [facility] 07:49:00 PM EST Smoked [facility] enter Smoking 07/17/2019 Denies Ever completed Denies Ever Smoked [facility] 07:45:00 PM EST Smoked [facility] enter Smoking 07/17/2019 Denies Ever completed Denies Ever Smoked [facility] 07:35:00 PM EST Smoked [facility] enter Smoking 07/16/2019 Denies Ever completed Denies Ever Smoked [facility] 03:43:00 PM EST Smoked [facility] enter Smoking 07/15/2019 Denies Ever completed Denies Ever Smoked [facility] 01:56:00 AM EST Smoked [facility] enter Smoking 07/15/2019 Denies Ever completed Denies Ever Smoked [facility] 01:30:00 AM EST Smoked [facility] enter Smoking 07/15/2019 Denies Ever completed Denies Ever Smoked [facility] 01:15:00 AM EST Smoked [facility] enter Smoking 07/14/2019 Denies Ever completed Denies Ever Smoked [facility] 07:48:00 AM EST Smoked [facility] enter Smoking 07/14/2019 Denies Ever completed Denies Ever Smoked [facility] 07:42:00 AM EST Smoked [facility] enter Smoking 07/14/2019 Denies Ever completed Denies Ever Smoked [facility] 07:39:00 AM EST Smoked [facility] enter Smoking 07/13/2019 Denies Ever completed Denies Ever Smoked [facility] 04:24:00 AM EST Smoked [facility] enter Smoking 07/13/2019 Denies Ever completed Denies Ever Smoked [facility] 03:16:00 AM EST Smoked [facility] enter Smoking 07/13/2019 Denies Ever completed Denies Ever Smoked [facility] 03:06:00 AM EST Smoked [facility] enter Smoking 07/12/2019 Denies Ever completed Denies Ever Smoked [facility] 10:49:00 PM EST Smoked [facility] enter Smoking 07/12/2019 Denies Ever completed Denies Ever Smoked [facility] 09:50:00 PM EST Smoked [facility] enter Smoking 07/12/2019 Denies Ever completed Denies Ever Smoked [facility] 09:44:00 PM EST Smoked [facility] enter Smoking 07/12/2019 Denies Ever completed Denies Ever Smoked [facility] 02:13:00 PM EST Smoked [facility] enter Smoking 07/12/2019 Denies Ever completed Denies Ever Smoked [facility] 01:45:00 PM EST Smoked [facility] enter Smoking 07/12/2019 Denies Ever completed Denies Ever Smoked [facility] 01:36:00 PM EST Smoked [facility] enter Smoking 07/09/2019 Denies Ever completed Denies Ever Smoked [facility] 10:18:00 PM EST Smoked [facility] enter Smoking 07/09/2019 Denies Ever completed Denies Ever Smoked [facility] 10:15:00 PM EST Smoked [facility] enter Smoking 07/09/2019 Denies Ever completed Denies Ever Smoked [facility] 11:45:00 AM EST Smoked [facility] enter Smoking 07/09/2019 Denies Ever completed Denies Ever Smoked [facility] 11:44:00 AM EST Smoked [facility] enter Smoking 07/09/2019 Denies Ever completed Denies Ever Smoked [facility] 11:37:00 AM EST Smoked [facility] enter Smoking 07/08/2019 Denies Ever completed Denies Ever Smoked [facility] 09:39:00 PM EST Smoked [facility] enter Smoking 07/08/2019 Denies Ever completed Denies Ever Smoked [facility] 08:30:00 PM EST Smoked [facility] enter Smoking 07/07/2019 Denies Ever completed Denies Ever Smoked [facility] 08:05:00 PM EST Smoked [facility] enter Smoking 07/07/2019 Denies Ever completed Denies Ever Smoked [facility] 08:01:00 PM EST Smoked [facility] enter Smoking 07/07/2019 Denies Ever completed Denies Ever Smoked [facility] 08:01:00 PM EST Smoked [facility] enter Smoking 07/07/2019 Denies Ever completed Denies Ever Smoked [facility] 12:50:00 PM EST Smoked [facility] enter Smoking 07/07/2019 Denies Ever completed Denies Ever Smoked [facility] 12:35:00 PM EST Smoked [facility] enter Smoking 07/07/2019 Denies Ever completed Denies Ever Smoked [facility] 12:26:00 PM EST Smoked [facility] enter Smoking 07/06/2019 Denies Ever completed [facility] [place] 10:35:00 PM EST [facility] 07/06/2019 Denies Ever completed [facility] [place] 06:56:00 PM EST [facility] 07/06/2019 Denies Ever completed [facility] [place] 06:44:00 PM EST [facility] Sm[facility] 07/05/2019 Denies Ever completed Den[facility] Ever [facility] [place] 11:22:00 PM EST [facility] Sm[facility] 07/05/2019 Denies Ever completed Denies Ever [facility] [place] 10:22:00 PM EST [facility] Sm[facility] 07/05/2019 Denies Ever completed Denies Ever [facility] [place] 10:20:00 PM EST [facility] Sm[facility] 07/04/2019 Denies Ever completed Denies Ever [facility] [place] 07:35:00 PM EST [facility] Sm[facility] 07/04/2019 Denies Ever completed Den[facility] Ever [facility] [place] 06:40:00 PM EST [facility] Sm[facility] 07/04/2019 Denies Ever completed Denies Ever [facility] [place] 06:14:00 PM EST [facility] Sm[facility] 07/03/2019 Denies Ever completed Den[facility] Ever [facility] [place] 11:43:00 PM EST [facility] Sm[facility] 07/03/2019 Denies Ever completed Denies Ever [facility] [place] 11:37:00 PM EST [facility] Sm[facility] 07/03/2019 Denies Ever completed Denies Ever [facility] [place] 10:50:00 PM EST [facility] Sm[facility] 07/02/2019 Denies Ever completed Den[facility] Ever [facility] [place] 06:42:00 PM EST [facility] Sm[facility] 07/02/2019 Denies Ever completed Denies Ever [facility] [place] 06:30:00 PM EST [facility] Sm[facility] 07/02/2019 Denies Ever completed Denies Ever [facility] [place] 06:26:00 PM EST [facility] Sm[facility] 07/01/2019 Denies Ever completed Denies Ever [facility] [place] 11:34:00 PM EST [facility] Sm[facility] 07/01/2019 Denies Ever completed Denies Ever [facility] [place] 11:20:00 PM EST [facility] Sm[facility] 07/01/2019 Denies Ever completed Den[facility] Ever [facility] [place] 09:09:00 PM EST [facility] Sm[facility] 07/01/2019 Denies Ever completed Den[facility] [place] 07:30:00 PM EST [facility] Sm[facility] 06/29/2019 Denies Ever completed Denies Ever Smoked [facility] [place] 11:36:00 PM EST [facility] Smoking 06/29/2019 Denies Ever completed Denies Ever Smoked [facility] [place] 09:42:00 PM EST [facility] Smoking 06/29/2019 Denies Ever completed Denies Ever Smoked [facility] [place] 09:39:00 PM EST [facility] Smoking 06/29/2019 Denies Ever completed Denies Ever Smoked [facility] [place] 04:04:00 AM EST [facility] Sm[facility] 06/29/2019 Denies Ever completed Denies Ever Smoked [facility] [place] 03:25:00 AM EST [facility] Sm[facility] 06/29/2019 Denies Ever completed Denies Ever [facility] [place] 03:13:00 AM EST [facility] Smoking 06/28/2019 Denies Ever completed Den[facility] Ever [facility] [place] 09:32:00 PM EST [facility] Smoking 06/28/2019 Denies Ever completed Den[facility] Ever [facility] [place] 09:30:00 PM EST [facility] Smoking 06/28/2019 Denies Ever completed Denies Ever [facility] [place] 09:29:00 PM EST [facility] Smoking 06/28/2019 Denies Ever completed Denies Ever [facility] [place] 02:11:00 PM EST [facility] Smoking 06/28/2019 Denies Ever completed Denies Ever [facility] [place] 01:04:00 PM EST [facility] Smoking 06/28/2019 Denies Ever completed Den[facility] [place] 01:03:00 PM EST [facility] Smoking 06/28/2019 Denies Ever completed Denies Ever [facility] [place] 01:10:00 AM EST [facility] Sm[facility] 06/28/2019 Denies Ever completed Denies Ever [facility] [place] 12:26:00 AM EST [facility] Sm[facility] 06/28/2019 Denies Ever completed Denies Ever [facility] [place] 12:11:00 AM EST [facility] Sm[facility] 06/27/2019 Denies Ever completed Denies Ever [facility] [place] 01:00:00 PM EST [facility] Sm[facility] 06/27/2019 Denies Ever completed Den[facility] Ever [facility] [place] 01:00:00 PM EST [facility] Sm[facility] 06/27/2019 Denies Ever completed Den[facility] [place] 12:58:00 PM EST [facility] Sm[facility] 06/27/2019 Denies Ever completed Den[facility] Ever [facility] [place] 04:30:00 AM EST [facility] Sm[facility] 06/27/2019 Denies Ever completed Den[facility] [place] 04:03:00 AM EST [facility] Sm[facility] 06/27/2019 Denies Ever completed Denies Ever [facility] [place] 04:00:00 AM EST [facility] Sm[facility] 06/25/2019 Denies Ever completed Denies Ever Sm[facility] [place] 12:31:00 AM EST [facility] Sm[facility] 06/24/2019 Denies Ever completed Den[facility] Ever [facility] [place] 11:00:00 PM EST [facility] Sm[facility] 06/24/2019 Denies Ever completed Den[facility] Ever [facility] [place] 02:18:00 PM EST [facility] Sm[facility] 06/24/2019 Denies Ever completed Den[facility] [place] 02:00:00 PM EST [facility] Sm[facility] 06/24/2019 Denies Ever completed Den[facility] Ever [facility] [place] 01:58:00 PM EST [facility] Sm[facility] 06/23/2019 Denies Ever completed Den[facility] [place] 06:06:00 PM EST [facility] Sm[facility] 06/23/2019 Denies Ever completed Denies Ever [facility] [place] 05:20:00 PM EST [facility] Sm[facility] 06/23/2019 Denies Ever completed Den[facility] Ever [facility] [place] 05:13:00 PM EST [facility] Sm[facility] 06/16/2019 Denies Ever completed Den[facility] Ever [facility] [place] 06:50:00 PM EST [facility] Sm[facility] 06/16/2019 Denies Ever completed Denies Ever [facility] [place] 06:28:00 PM EST [facility] Sm[facility] 06/16/2019 Denies Ever completed Denies Ever [facility] [place] 06:20:00 PM EST [facility] Sm[facility] 06/16/2019 Denies Ever completed Denies Ever [facility] [place] 06:59:00 AM EST [facility] Sm[facility] 06/16/2019 Denies Ever completed Denies Ever Smoked [facility] [place] 02:39:00 AM EST [facility] Sm[facility] 06/16/2019 Denies Ever completed Den[facility] Ever [facility] [place] 02:36:00 AM EST [facility] Sm[facility] 06/15/2019 Denies Ever completed Den[facility] Ever [facility] [place] 05:30:00 PM EST [facility] Sm[facility] 06/15/2019 Denies Ever completed Den[facility] Ever [facility] [place] 01:56:00 PM EST [facility] Sm[facility] 06/14/2019 Denies Ever completed Den[facility] Ever [facility] [place] 08:35:00 PM EST [facility] Sm[facility] 06/14/2019 Denies Ever completed Denies Ever [facility] [place] 08:20:00 PM EST [facility] Sm[facility] 06/13/2019 Denies Ever completed Denies Ever [facility] [place] 07:54:00 PM EST [facility] Smoking 06/13/2019 Denies Ever completed Denies Ever [facility] [place] 06:40:00 PM EST [facility] Sm[facility] 06/13/2019 Denies Ever completed Den[facility] Ever [facility] [place] 06:21:00 PM EST [facility] Sm[facility] 06/12/2019 Denies Ever completed Denies Ever [facility] [place] 08:52:00 PM EST [facility] Sm[facility] 06/12/2019 Denies Ever completed Denies Ever Sm[facility] [place] 08:50:00 PM EST [facility] Sm[facility] 06/12/2019 Denies Ever completed Denies Ever [facility] [place] 05:44:00 PM EST [facility] Sm[facility] 06/12/2019 Denies Ever completed Denies Ever Sm[facility] [place] 05:24:00 PM EST [facility] Sm[facility] 06/10/2019 Denies Ever completed Denies Ever Sm[facility] [place] 07:42:00 PM EST [facility] Sm[facility] 06/10/2019 Denies Ever completed Den[facility] Ever [facility] [place] 06:32:00 PM EST [facility] Sm[facility] 06/10/2019 Denies Ever completed Denies Ever Smoked [facility] [place] 06:01:00 PM EST [facility] Sm[facility] 06/09/2019 Denies Ever completed Den[facility] Ever [facility] [place] 09:32:00 PM EST [facility] Sm[facility] 06/09/2019 Denies Ever completed Denies Ever Sm[facility] [place] 06:51:00 PM EST [facility] Sm[facility] 06/09/2019 Denies Ever completed Denies Ever [facility] [place] 06:45:00 PM EST [facility] Sm[facility] 06/09/2019 Denies Ever completed Den[facility] Ever [facility] [place] 03:49:00 PM EST [facility] Sm[facility] 06/09/2019 Denies Ever completed Den[facility] Ever [facility] [place] 02:45:00 PM EST [facility] Sm[facility] 06/09/2019 Denies Ever completed Denies Ever Sm[facility] [place] 02:33:00 PM EST [facility] Sm[facility] 06/09/2019 Denies Ever completed Den[facility] [place] 04:29:00 AM EST [facility] Sm[facility] 06/08/2019 Denies Ever completed Den[facility] Ever [facility] [place] 08:13:00 PM EST [facility] Sm[facility] 06/08/2019 Denies Ever completed Den[facility] [place] 08:11:00 PM EST [facility] Sm[facility] 06/07/2019 Denies Ever completed Den[facility] Ever [facility] [place] 04:40:00 PM EST [facility] Sm[facility] 06/07/2019 Denies Ever completed Den[facility] [place] 04:38:00 PM EST [facility] Sm[facility] 06/07/2019 Denies Ever completed Denies Ever [facility] [place] 04:29:00 PM EST [facility] Sm[facility] 06/06/2019 Denies Ever completed Denies Ever [facility] [place] 07:34:00 PM EST [facility] Sm[facility] 06/06/2019 Denies Ever completed Denies Ever [facility] [place] 07:03:00 PM EST [facility] Sm[facility] 06/06/2019 Denies Ever completed Denies Ever Sm[facility] [place] 12:18:00 PM EST [facility] Sm[facility] 06/06/2019 Denies Ever completed Denies Ever [facility] [place] 11:54:00 AM EST [facility] Sm[facility] 06/06/2019 Denies Ever completed Den[facility] Ever [facility] [place] 11:51:00 AM EST [facility] Sm[facility] 06/06/2019 Denies Ever completed Denies Ever Sm[facility] [place] 06:28:00 AM EST [facility] Sm[facility] 06/05/2019 Denies Ever completed Den[facility] Ever Sm[facility] [place] 06:12:00 PM EST [facility] Sm[facility] 06/05/2019 Denies Ever completed Denies Ever [facility] [place] 05:59:00 PM EST [facility] Sm[facility] 06/05/2019 Denies Ever completed Denies Ever Sm[facility] [place] 05:54:00 PM EST [facility] Sm[facility] 06/03/2019 Denies Ever completed Den[facility] Ever [facility] [place] 03:59:00 PM EST [facility] Sm[facility] 06/03/2019 Denies Ever completed Denies Ever [facility] [place] 03:05:00 PM EST [facility] Sm[facility] 06/03/2019 Denies Ever completed Denies Ever [facility] [place] 03:00:00 PM EST [facility] Sm[facility] 06/02/2019 Denies Ever completed Denies Ever [facility] [place] 09:00:00 PM EST [facility] Sm[facility] 06/02/2019 Denies Ever completed Denies Ever [facility] [place] 05:09:00 PM EST [facility] Sm[facility] 06/02/2019 Denies Ever completed Denies Ever [facility] [place] 04:10:00 PM EST [facility] Sm[facility] 06/02/2019 Denies Ever completed Den[facility] Ever [facility] [place] 04:06:00 PM EST [facility] Sm[facility] 06/02/2019 Denies Ever completed Den[facility] Ever [facility] [place] 03:57:00 PM EST [facility] Sm[facility] 06/01/2019 Denies Ever completed Denies Ever Smoked [facility] [place] 10:00:00 PM EST [facility] Sm[facility] 06/01/2019 Denies Ever completed Denies Ever Smoked [facility] [place] 07:59:00 PM EST [facility] Sm[facility] 06/01/2019 Denies Ever completed Denies Ever Sm[facility] [place] 07:29:00 PM EST [facility] Sm[facility] 06/01/2019 Denies Ever completed Denies Ever Smoked [facility] [place] 02:31:00 PM EST [facility] Smoking 06/01/2019 Denies Ever completed Denies Ever [facility] [place] 01:46:00 PM EST [facility] Smoking 05/31/2019 Denies Ever completed Denies Ever [facility] [place] 03:00:00 PM EST [facility] Smoking 05/31/2019 Denies Ever completed Denies Ever Sm[facility] [place] 02:51:00 PM EST [facility] Smoking 05/31/2019 Denies Ever completed Denies Ever Sm[facility] [place] 02:38:00 PM EST [facility] Smoking 05/29/2019 Denies Ever completed Denies Ever [facility] [place] 11:04:00 PM EST [facility] Smoking 05/29/2019 Denies Ever completed Denies Ever [facility] [place] 03:08:00 PM EST [facility] Smoking 05/29/2019 Denies Ever completed Denies Ever [facility] [place] 03:03:00 PM EST [facility] Smoking 05/29/2019 Denies Ever completed Denies Ever [facility] [place] 01:54:00 AM EST [facility] Smoking 05/28/2019 Denies Ever completed Denies Ever Smoked [facility] [place] 09:58:00 PM EST [facility] Smoking 05/28/2019 Denies Ever completed Denies Ever Smoked [facility] [place] 09:54:00 PM EST [facility] Smoking 05/28/2019 Denies Ever completed Denies Ever [facility] [place] 04:55:00 PM EST [facility] Smoking 05/28/2019 Denies Ever completed Denies Ever Sm[facility] [place] 02:38:00 PM EST [facility] Smoking 05/24/2019 Denies Ever completed Den[facility] Ever Sm[facility] [place] 09:32:00 PM EST [facility] Smoking 05/24/2019 Denies Ever completed Den[facility] Ever [facility] [place] 06:44:00 PM EST [facility] Sm[facility] 05/24/2019 Denies Ever completed Denies Ever Sm[facility] [place] 12:24:00 PM EST [facility] Smoking 05/24/2019 Denies Ever completed Denies Ever [facility] [place] 12:20:00 PM EST [facility] Sm[facility] 05/24/2019 Denies Ever completed Denies Ever [facility] [place] 12:06:00 PM EST [facility] Smoking 05/22/2019 Denies Ever completed Denies Ever Sm[facility] [place] 10:30:00 PM EST [facility] Smoking 05/22/2019 Denies Ever completed Den[facility] Ever [facility] [place] 10:20:00 PM EST [facility] Smoking 05/22/2019 Denies Ever completed Den[facility] Ever [facility] [place] 02:39:00 PM EST [facility] Smoking 05/22/2019 Denies Ever completed Den[facility] Ever [facility] [place] 02:34:00 PM EST [facility] Smoking 05/22/2019 Denies Ever completed Den[facility] Ever [facility] [place] 02:17:00 PM EST [facility] Smoking 05/21/2019 Denies Ever completed Den[facility] [place] 05:06:00 PM EST [facility] Smoking 05/21/2019 Denies Ever completed [facility] [place] 04:16:00 PM EST [facility] Smoking 05/21/2019 Denies Ever completed Den[facility] Ever [facility] [place] 04:04:00 PM EST [facility] Smoking 05/21/2019 Denies Ever completed Den[facility] Ever [facility] [place] 04:19:00 AM EST [facility] Sm[facility] 05/20/2019 Denies Ever completed Den[facility] Ever [facility] [place] 07:48:00 PM EST [facility] Sm[facility] 05/20/2019 Denies Ever completed Den[facility] Ever [facility] [place] 07:45:00 PM EST [facility] Smoking 05/20/2019 Denies Ever completed [facility] [place] 07:17:00 PM EST [facility] Sm[facility] 05/20/2019 Denies Ever completed [facility] Ever [facility] [place] 12:02:00 AM EST [facility] Smoking 05/19/2019 Denies Ever completed [facility] [place] 09:36:00 PM EST [facility] Smoking 05/18/2019 Denies Ever completed Den[facility] [place] 12:35:00 AM EST [facility] Smoking 05/18/2019 Denies Ever completed Den[facility] Ever Sm[facility] [place] 12:00:00 AM EST [facility] Smoking 05/17/2019 Denies Ever completed Den[facility] Ever [facility] [place] 11:16:00 PM EST [facility] Smoking 05/17/2019 Denies Ever completed [facility] [place] 01:41:00 PM EST [facility] Smoking 05/17/2019 Denies Ever completed Den[facility] [place] 01:10:00 PM EST [facility] Smoking 05/17/2019 Denies Ever completed Den[facility] [place] 01:00:00 PM EST [facility] Smoking 05/17/2019 Denies Ever completed Den[facility] Ever [facility] [place] 12:53:00 PM EST [facility] Smoking 05/17/2019 Denies Ever completed Den[facility] Ever [facility] [place] 03:08:00 AM EST [facility] Smoking 05/16/2019 Denies Ever completed Den[facility] Ever [facility] [place] 08:26:00 PM EST [facility] Smoking 05/16/2019 Denies Ever completed Den[facility] Ever [facility] [place] 08:08:00 PM EST [facility] Smoking 05/15/2019 Denies Ever completed Den[facility] Ever Sm[facility] [place] 06:00:00 PM EST [facility] Smoking 05/15/2019 Denies Ever completed Den[facility] Ever [facility] [place] 05:38:00 PM EST [facility] Smoking 05/15/2019 Denies Ever completed Den[facility] Ever [facility] [place] 05:26:00 PM EST [facility] Smoking 05/15/2019 Denies Ever completed Denies Ever Sm[facility] [place] 12:13:00 AM EST [facility] Smoking 05/15/2019 Denies Ever completed Den[facility] Ever [facility] [place] 12:02:00 AM EST [facility] Smoking 05/15/2019 Denies Ever completed [facility] [place] 12:02:00 AM EST [facility] Smoking 05/14/2019 Denies Ever completed Den[facility] Ever [facility] [place] 04:57:00 PM EST [facility] Smoking 05/14/2019 Denies Ever completed Den[facility] [place] 04:00:00 PM EST [facility] Smoking 05/14/2019 Denies Ever completed Den[facility] Ever Sm[facility] [place] 03:35:00 PM EST [facility] Smoking 05/07/2019 Denies Ever completed Denies Ever Sm[facility] [place] 04:05:00 PM EST [facility] Smoking 05/07/2019 Occasional Smoker completed Occasional Smoker [facility] [place] 01:13:00 PM EST [facility] enter Sm[facility] 05/07/2019 Denies Ever completed Den[facility] Ever [facility] [place] 08:31:00 AM EST [facility] Smoking 05/07/2019 Denies Ever completed Den[facility] Ever Sm[facility] [place] 08:25:00 AM EST [facility] Smoking 05/06/2019 Denies Ever completed Den[facility] Ever [facility] [place] 06:15:00 PM EST [facility] Smoking 05/06/2019 Denies Ever completed Den[facility] Ever [facility] [place] 05:50:00 PM EST [facility] Smoking 05/05/2019 Denies Ever completed Den[facility] Ever Sm[facility] [place] 05:00:00 PM EST [facility] Smoking 05/05/2019 Denies Ever completed Den[facility] Ever [facility] [place] 04:19:00 PM EST [facility] Smoking 05/05/2019 Denies Ever completed Den[facility] Ever [facility] [place] 04:12:00 PM EST [facility] enter Smoking 05/04/2019 Denies Ever completed Den[facility] Ever [facility] [place] 09:20:00 PM EST [facility] Smoking 05/04/2019 Denies Ever completed Den[facility] Ever [facility] [place] 09:17:00 PM EST [facility] Smoking 05/04/2019 Denies Ever completed [facility] Ever [facility] [place] 08:52:00 PM EST [facility] Smoking 05/02/2019 Denies Ever completed Den[facility] Ever [facility] [place] 05:33:00 PM EST [facility] Smoking 05/02/2019 Denies Ever completed [facility] [place] 04:03:00 PM EST [facility] Smoking 05/02/2019 Denies Ever completed [facility] [place] 03:36:00 PM EST [facility] Smoking 05/02/2019 Denies Ever completed Den[facility] Ever [facility] [place] 03:36:00 PM EST [facility] Smoking 05/01/2019 Denies Ever completed [facility] Ever [facility] [place] 02:41:00 PM EST [facility] Smoking 05/01/2019 Denies Ever completed Den[facility] Ever [facility] [place] 02:25:00 PM EST [facility] Smoking 05/01/2019 Denies Ever completed Den[facility] Ever Sm[facility] [place] 02:22:00 PM EST [facility] Smoking 04/30/2019 Denies Ever completed [facility] [place] 10:04:00 PM EST [facility] Smoking 04/30/2019 Denies Ever completed [facility] [place] 09:20:00 PM EST [facility] Smoking 04/30/2019 Denies Ever completed [facility] [place] 09:18:00 PM EST [facility] Smoking 04/30/2019 Denies Ever completed [facility] [place] 08:14:00 PM EST [facility] Smoking 04/30/2019 Denies Ever completed [facility] [place] 08:08:00 PM EST [facility] Smoking 04/30/2019 Denies Ever completed Den[facility] Ever [facility] [place] 08:01:00 PM EST [facility] Smoking 04/30/2019 Denies Ever completed Den[facility] Ever [facility] [place] 04:19:00 PM EST [facility] Smoking 04/30/2019 Denies Ever completed [facility] [place] 03:00:00 PM EST [facility] Smoking 04/30/2019 Denies Ever completed Den[facility] Ever [facility] [place] 02:51:00 PM EST [facility] Smoking 04/30/2019 Denies Ever completed Den[facility] Ever [facility] [place] 06:29:00 AM EST [facility] Smoking 04/29/2019 Denies Ever completed Den[facility] [place] 09:34:00 PM EST [facility] Smoking 04/29/2019 Denies Ever completed Den[facility] Ever [facility] [place] 09:32:00 PM EST [facility] Smoking 04/29/2019 Denies Ever completed Den[facility] [place] 03:00:00 AM EST [facility] Smoking 04/29/2019 Denies Ever completed [facility] [place] 03:00:00 AM EST [facility] Smoking 04/29/2019 Denies Ever completed Den[facility] Ever [facility] [place] 02:57:00 AM EST [facility] Smoking 04/28/2019 Denies Ever completed Denies Ever [facility] [place] 06:19:00 PM EST [facility] Smoking 04/28/2019 Denies Ever completed Denies Ever [facility] [place] 06:11:00 PM EST [facility] Smoking 04/28/2019 Denies Ever completed Denies Ever Sm[facility] [place] 03:58:00 PM EST [facility] Smoking 04/27/2019 Denies Ever completed Denies Ever [facility] [place] 10:14:00 PM EST [facility] Smoking 04/27/2019 Denies Ever completed [facility] Ever [facility] [place] 04:51:00 PM EST [facility] Smoking 04/27/2019 Denies Ever completed Denies Ever [facility] [place] 04:15:00 PM EST [facility] Smoking 04/27/2019 Denies Ever completed Denies Ever [facility] [place] 03:48:00 PM EST [facility] Smoking 04/26/2019 Denies Ever completed Denies Ever [facility] [place] 11:25:00 PM EST [facility] Smoking 04/26/2019 Denies Ever completed Denies Ever Sm[facility] [place] 01:32:00 PM EST [facility] Smoking 04/26/2019 Denies Ever completed Denies Ever [facility] [place] 01:21:00 PM EST [facility] Smoking 04/26/2019 Denies Ever completed Den[facility] Ever [facility] [place] 01:17:00 PM EST [facility] Smoking 04/24/2019 Denies Ever completed Denies Ever [facility] [place] 03:03:00 AM EST [facility] Smoking 04/24/2019 Denies Ever completed Denies Ever [facility] [place] 02:20:00 AM EST [facility] Smoking 04/24/2019 Denies Ever completed Denies Ever [facility] [place] 02:03:00 AM EST [facility] Smoking 04/23/2019 Denies Ever completed Denies Ever [facility] [place] 01:19:00 PM EST [facility] Smoking 04/23/2019 Denies Ever completed Den[facility] Ever [facility] [place] 01:14:00 PM EST [facility] Smoking 04/22/2019 Denies Ever completed Den[facility] Ever [facility] [place] 06:36:00 PM EST [facility] enter Smoking 04/22/2019 Denies Ever completed Denies Ever [facility] [place] 05:00:00 PM EST [facility] Smoking 04/22/2019 Denies Ever completed Denies Ever Smoked [facility] [place] 04:25:00 PM EST [facility] enter Smoking 04/22/2019 Denies Ever completed Denies Ever Sm[facility] [place] 04:14:00 PM EST [facility] enter Smoking 04/21/2019 Denies Ever completed Denies Ever Sm[facility] [place] 12:16:00 PM EST [facility] enter Smoking 04/21/2019 Denies Ever completed Denies Ever Sm[facility] [place] 12:14:00 PM EST [facility] enter Smoking 04/20/2019 Denies Ever completed Denies Ever [facility] [place] 01:49:00 PM EST [facility] enter Smoking 04/20/2019 Denies Ever completed Denies Ever Sm[facility] [place] 01:20:00 PM EST [facility] enter Smoking 04/20/2019 Denies Ever completed Denies Ever Smoked [facility] [place] 01:10:00 PM EST [facility] enter Smoking 04/19/2019 Denies Ever completed Denies Ever Smoked [facility] [place] 10:54:00 PM EST [facility] enter Smoking 04/19/2019 Denies Ever completed Denies Ever Smoked [facility] [place] 10:00:00 PM EST [facility] enter Smoking 04/19/2019 Denies Ever completed Denies Ever Smoked [facility] [place] 05:59:00 PM EST [facility] enter Smoking 04/19/2019 Denies Ever completed Denies Ever Smoked [facility] [place] 05:11:00 PM EST [facility] enter Smoking 04/19/2019 Denies Ever completed Denies Ever Smoked [facility] [place] 01:35:00 PM EST Smoked [facility] enter Smoking 04/19/2019 Denies Ever completed Denies Ever Smoked [place] 01:31:00 PM EST [facility] enter Smoking 04/19/2019 Denies Ever completed Denies Ever Smoked [place] 01:31:00 PM EST [facility] enter Smoking 04/18/2019 Denies Ever completed Denies Ever Smoked [place] 09:45:00 PM EST [facility] enter Smoking 04/18/2019 Denies Ever completed Denies Ever Smoked [place] 06:24:00 PM EST [facility] enter Smoking 04/18/2019 Denies Ever completed Denies Ever Smoked [place] 05:07:00 PM EST Sm[facility] enter Smoking 04/18/2019 Denies Ever completed Denies Ever Smoked [place] 02:42:00 PM EST [facility] enter Smoking 04/18/2019 Denies Ever completed Denies Ever Smoked [place] 02:39:00 PM EST [facility] enter Smoking 04/17/2019 Denies Ever completed Denies Ever Smoked [place] 08:59:00 PM EST Sm[facility] enter Smoking 04/17/2019 Denies Ever completed Denies Ever Smoked [place] 07:42:00 PM EST [facility] enter Smoking 04/17/2019 Denies Ever completed Denies Ever Smoked [place] 07:37:00 PM EST Sm[facility] enter Smoking 04/16/2019 Denies Ever completed Denies Ever Smoked [place] 07:16:00 PM EDT Smoked [facility] enter Smoking 04/16/2019 Denies Ever completed Denies Ever Smoked [place] 06:56:00 PM EDT Smoked [facility] enter Smoking 04/11/2019 Denies Ever completed Denies Ever Smoked [place] 08:20:00 PM EDT Smoked [facility] enter Smoking 04/11/2019 Denies Ever completed Denies Ever Smoked [place] 06:35:00 PM EDT Smoked [facility] enter Smoking 04/10/2019 Denies Ever completed Denies Ever Smoked [place] 09:56:00 PM EDT [facility]oked [facility] enter Smoking 04/10/2019 Denies Ever completed Denies Ever Smoked [place] 07:59:00 PM EDT Smoked [facility] enter Smoking 04/10/2019 Denies Ever completed Denies Ever Smoked [place] 07:50:00 PM EDT [facility]oked [facility] enter Smoking 04/09/2019 Denies Ever completed Denies Ever Smoked [place] 11:30:00 PM EDT [facility]oked [facility] enter Smoking 04/09/2019 Denies Ever completed Denies Ever Smoked [place] 09:19:00 PM EDT [facility]oked [facility] enter Smoking 04/09/2019 Denies Ever completed Denies Ever Smoked [place] 09:14:00 PM EDT [facility]oked [facility] enter Smoking 04/08/2019 Denies Ever completed Denies Ever Smoked [place] 09:14:00 PM EDT [facility]oked [facility] enter Smoking 04/08/2019 Denies Ever completed Denies Ever Smoked [place] 05:52:00 PM EDT [facility]oked [facility] enter Smoking 04/08/2019 Denies Ever completed Denies Ever Smoked [place] 05:49:00 PM EDT [facility]oked [facility] enter Smoking 04/07/2019 Denies Ever completed Denies Ever Smoked [place] 05:10:00 AM EDT [facility]oked [facility] enter Smoking 04/07/2019 Denies Ever completed Denies Ever Smoked [place] 05:06:00 AM EDT [facility]oked [facility] enter Smoking 04/07/2019 Denies Ever completed Denies Ever Smoked [place] 05:00:00 AM EDT [facility]oked [facility] enter Smoking 04/06/2019 Denies Ever completed Denies Ever Smoked [place] 12:48:00 PM EDT [facility]oked [facility] enter Smoking 04/06/2019 Denies Ever completed Denies Ever Smoked [place] 12:45:00 PM EDT [facility]oked [facility] enter Smoking 04/06/2019 Denies Ever completed Denies Ever Smoked [place] 12:39:00 PM EDT [facility]oked [facility] enter Smoking 04/06/2019 Denies Ever completed Denies Ever Smoked [place] 01:58:00 AM EDT [facility]oked [facility] enter Smoking 04/06/2019 Denies Ever completed Denies Ever Smoked [place] 01:46:00 AM EDT [facility]oked [facility] enter Smoking 04/05/2019 Denies Ever completed Denies Ever Smoked [place] 06:22:00 PM EDT [facility]oked [facility] enter Smoking 04/05/2019 Denies Ever completed Denies Ever Smoked [place] 04:17:00 PM EDT [facility]oked [facility] enter Smoking 04/05/2019 Denies Ever completed Denies Ever Smoked [place] 03:18:00 PM EDT [facility]oked [facility] enter Smoking 04/05/2019 Denies Ever completed Denies Ever Smoked [place] 06:37:00 AM EDT [facility]oked [facility] enter Smoking 04/04/2019 Denies Ever completed Denies Ever Smoked [place] 09:56:00 PM EDT [facility]oked [facility] enter Smoking 04/04/2019 Denies Ever completed Denies Ever Smoked [place] 06:00:00 PM EDT [facility]oked [facility] enter Smoking 04/04/2019 Denies Ever completed Denies Ever Smoked [place] 05:15:00 PM EDT [facility]oked [facility] enter Smoking 04/03/2019 Denies Ever completed Denies Ever Smoked [place] 09:21:00 PM EDT [facility]oked [facility] enter Smoking 04/03/2019 Denies Ever completed Denies Ever Smoked [place] 06:18:00 PM EDT Smoked [facility] enter Smoking 04/03/2019 Denies Ever completed Denies Ever Smoked [place] 06:06:00 PM EDT [facility]oked [facility] enter Smoking 04/02/2019 Denies Ever completed Denies Ever Smoked [place] 10:11:00 PM EDT Smoked [facility] enter Smoking 04/02/2019 Denies Ever completed Denies Ever Smoked [place] 08:20:00 PM EDT Smoked [facility] enter Smoking 04/02/2019 Denies Ever completed Denies Ever Smoked [place] 08:17:00 PM EDT Smoked [facility] enter Smoking 04/01/2019 Denies Ever completed Denies Ever Smoked [place] 07:46:00 PM EDT Smoked [facility] enter Smoking 03/31/2019 Denies Ever completed Denies Ever Smoked [place] 02:25:00 PM EDT Smoked [facility] enter Smoking 03/31/2019 Denies Ever completed Denies Ever Smoked [place] 05:43:00 AM EDT Smoked [facility] enter Smoking 03/30/2019 Denies Ever completed Denies Ever Smoked [place] 07:19:00 PM EDT Smoked [facility] enter Smoking 03/30/2019 Denies Ever completed Denies Ever Smoked [place] 05:35:00 PM EDT Smoked [facility] enter Smoking 03/30/2019 Denies Ever completed Denies Ever Smoked [place] 04:53:00 PM EDT Smoked [facility] enter Smoking 03/26/2019 Denies Ever completed Denies Ever Smoked [place] 07:21:00 PM EDT Smoked [facility] enter Smoking 03/26/2019 Denies Ever completed Denies Ever Smoked [place] 06:57:00 PM EDT Smoked [facility] enter Smoking 03/26/2019 Denies Ever completed Denies Ever Smoked [place] 06:18:00 PM EDT [facility]oked [facility] enter Smoking 03/25/2019 Denies Ever completed Denies Ever Smoked [place] 09:21:00 PM EDT Smoked [facility] enter Smoking 03/25/2019 Denies Ever completed Denies Ever Smoked [place] 04:38:00 PM EDT Smoked [facility] enter Smoking 03/25/2019 Denies Ever completed Denies Ever Smoked [place] 04:03:00 PM EDT Smoked [facility] enter Smoking 03/24/2019 Denies Ever completed Denies Ever Smoked [place] 10:10:00 PM EDT Smoked [facility] enter Smoking 03/24/2019 Denies Ever completed Denies Ever Smoked [place] 08:20:00 PM EDT Smoked [facility] enter Smoking 03/24/2019 Denies Ever completed Denies Ever Smoked [place] 08:08:00 PM EDT Smoked [facility] enter Smoking 03/24/2019 Denies Ever completed Denies Ever Smoked [place] 12:30:00 PM EDT Smoked [facility] enter Smoking 03/23/2019 Denies Ever completed Denies Ever Smoked [place] 01:55:00 PM EDT Smoked [facility] enter Smoking 03/23/2019 Denies Ever completed Denies Ever Smoked [place] 01:41:00 PM EDT Smoked [facility] enter Smoking 03/23/2019 Denies Ever completed Denies Ever Smoked [place] 01:35:00 PM EDT Smoked [facility] enter Smoking 03/22/2019 Denies Ever completed Denies Ever Smoked [place] 11:29:00 PM EDT Smoked [facility] enter Smoking 03/22/2019 Denies Ever completed Denies Ever Smoked [place] 11:25:00 PM EDT Smoked [facility] enter Smoking 03/22/2019 Denies Ever completed Denies Ever Smoked [place] 11:22:00 PM EDT Smoked [facility] enter Smoking 03/16/2019 Denies Ever completed Denies Ever Smoked [place] 11:18:00 PM EDT Smoked [facility] enter Smoking 03/16/2019 Denies Ever completed Denies Ever Smoked [place] 09:45:00 PM EDT Smoked [facility] enter Smoking 03/16/2019 Denies Ever completed Denies Ever Smoked [place] 09:36:00 PM EDT Smoked [facility] enter Smoking 03/11/2019 Denies Ever completed Denies Ever Smoked [place] 07:00:00 PM EDT Smoked [facility] enter Smoking 03/11/2019 Denies Ever completed Denies Ever Smoked [place] 06:56:00 PM EDT Smoked [facility] enter Smoking 03/11/2019 Denies Ever completed Denies Ever Smoked [place] 06:36:00 PM EDT Smoked [facility] enter Smoking 03/10/2019 Denies Ever completed Denies Ever Smoked [place] 07:19:00 PM EDT Smoked [facility] enter Smoking 03/10/2019 Denies Ever completed Denies Ever Smoked [place] 06:25:00 PM EDT Smoked [facility] enter Smoking 03/10/2019 Denies Ever completed Denies Ever Smoked [place] 06:19:00 PM EDT Smoked [facility] enter Smoking 03/05/2019 Denies Ever completed Denies Ever Smoked [place] 08:55:00 PM EDT Smoked [facility] enter Smoking 03/05/2019 Denies Ever completed Denies Ever Smoked [place] 08:46:00 PM EDT Smoked [facility] enter Smoking 03/04/2019 Denies Ever completed Denies Ever Smoked [place] 10:56:00 PM EDT Smoked [facility] enter Smoking 03/04/2019 Denies Ever completed Denies Ever Smoked [place] 10:40:00 PM EDT Smoked [facility] enter Smoking 03/04/2019 Denies Ever completed Denies Ever Smoked [place] 10:37:00 PM EDT Smoked [facility] enter Smoking 03/04/2019 Denies Ever completed Denies Ever Smoked [place] 02:48:00 AM EDT Smoked [facility] enter Smoking 03/03/2019 Denies Ever completed Denies Ever Smoked [place] 07:07:00 PM EDT Smoked [facility] enter Smoking 03/03/2019 Denies Ever completed Denies Ever Smoked [place] 06:50:00 PM EDT Smoked [facility] enter Smoking 03/03/2019 Denies Ever completed Denies Ever Smoked [place] 06:47:00 PM EDT Smoked [facility] enter Smoking 03/02/2019 Denies Ever completed Denies Ever Smoked [place] 05:24:00 PM EDT Smoked [facility] enter Smoking 03/02/2019 Denies Ever completed Denies Ever Smoked [place] 05:00:00 PM EDT Smoked [facility] enter Smoking 03/02/2019 Denies Ever completed Denies Ever Smoked [place] 04:30:00 PM EDT Smoked [facility] enter Smoking 03/01/2019 Denies Ever completed Denies Ever Smoked [place] 07:48:00 PM EDT Smoked [facility] enter Smoking 03/01/2019 Denies Ever completed Denies Ever Smoked [place] 07:46:00 PM EDT Smoked [facility] enter Smoking 03/01/2019 Denies Ever completed Denies Ever Smoked [place] 07:42:00 PM EDT Smoked [facility] enter Smoking 03/01/2019 Denies Ever completed Denies Ever Smoked [place] 12:00:00 PM EDT Smoked [facility] enter Smoking 02/28/2019 Denies Ever completed Denies Ever Smoked [place] 07:57:00 PM EDT Smoked [facility] enter Smoking 02/28/2019 Denies Ever completed Denies Ever Smoked [place] 07:27:00 PM EDT Smoked [facility] enter Smoking 02/28/2019 Denies Ever completed Denies Ever Smoked [place] 07:23:00 PM EDT Smoked [facility] enter Smoking 02/27/2019 Denies Ever completed Denies Ever Smoked [place] 05:10:00 PM EDT Smoked [facility] enter Smoking 02/24/2019 Denies Ever completed Denies Ever Smoked [place] 03:02:00 PM EDT Smoked [facility] enter Smoking 02/24/2019 Denies Ever completed Denies Ever Smoked [place] 01:40:00 PM EDT Smoked [facility] enter Smoking 02/24/2019 Denies Ever completed Denies Ever Smoked [place] 01:32:00 PM EDT Smoked [facility] enter Smoking 02/24/2019 Denies Ever completed Denies Ever Smoked [place] 12:17:00 AM EDT Smoked [facility] enter Smoking 02/23/2019 Denies Ever completed Denies Ever Smoked [place] 11:00:00 PM EDT Smoked [facility] enter Smoking 02/23/2019 Denies Ever completed Denies Ever Smoked [place] 10:51:00 PM EDT Smoked [facility] enter Smoking 02/23/2019 Not Known completed Not Known [place] 05:00:00 PM EDT [facility] C enter Smoking 02/23/2019 Not Known completed Not Known [place] 04:30:00 PM EDT Medical C enter Smoking 02/23/2019 Not Known completed Not Known [place] 04:10:00 PM EDT Medical C enter Smoking 02/23/2019 Not Known completed Not Known [place] 04:01:00 PM EDT Medical C enter Smoking 02/23/2019 Denies Ever completed Denies Ever Smoked [place] 05:51:00 AM EDT Smoked [facility] enter Smoking 02/22/2019 Denies Ever completed Denies Ever Smoked [place] 06:24:00 PM EDT Smoked [facility] enter Smoking 02/22/2019 Denies Ever completed Denies Ever Smoked [place] 05:57:00 PM EDT Smoked [facility] enter Smoking 02/22/2019 Denies Ever completed Denies Ever Smoked [place] 05:48:00 PM EDT Smoked [facility] enter Smoking 02/21/2019 Denies Ever completed Denies Ever Smoked [place] 07:23:00 PM EDT Smoked [facility] enter Smoking 02/21/2019 Denies Ever completed Denies Ever Smoked [place] 06:26:00 PM EDT Smoked [facility] enter Smoking 02/21/2019 Denies Ever completed Denies Ever Smoked [place] 05:29:00 PM EDT Smoked [facility] enter Smoking 02/19/2019 Denies Ever completed Denies Ever Smoked [place] 10:33:00 PM EDT Smoked [facility] enter Smoking 02/19/2019 Denies Ever completed Denies Ever Smoked [place] 04:53:00 PM EDT Smoked [facility] enter Smoking 02/19/2019 Denies Ever completed Denies Ever Smoked [place] 04:45:00 PM EDT Smoked [facility] enter Smoking 02/19/2019 Denies Ever completed Denies Ever Smoked [place] 04:38:00 PM EDT Smoked [facility] enter Smoking 02/18/2019 Denies Ever completed Denies Ever Smoked [place] 06:23:00 PM EDT Smoked [facility] enter Smoking 02/18/2019 Denies Ever completed Denies Ever Smoked [place] 06:01:00 PM EDT Smoked [facility] enter Smoking 02/18/2019 Denies Ever completed Denies Ever Smoked [place] 05:48:00 PM EDT Smoked [facility] enter Smoking 02/17/2019 Denies Ever completed Denies Ever Smoked [place] 09:00:00 PM EDT Smoked [facility] enter Smoking 02/17/2019 Denies Ever completed Denies Ever Smoked [place] 08:28:00 PM EDT Smoked [facility] enter Smoking 02/17/2019 Denies Ever completed Denies Ever Smoked [place] 07:42:00 PM EDT Smoked [facility] enter Smoking 02/17/2019 Denies Ever completed Denies Ever Smoked [place] 12:06:00 PM EDT Smoked [facility] enter Smoking 02/17/2019 Denies Ever completed Denies Ever Smoked [place] 11:49:00 AM EDT Smoked [facility] enter Smoking 02/16/2019 Denies Ever completed Denies Ever Smoked [place] 09:19:00 PM EDT Smoked [facility] enter Smoking 02/16/2019 Denies Ever completed Denies Ever Smoked [place] 09:01:00 PM EDT Smoked [facility] enter Smoking 02/16/2019 Denies Ever completed Denies Ever Smoked [place] 09:00:00 PM EDT Smoked [facility] enter Smoking 02/15/2019 Denies Ever completed Denies Ever Smoked [place] 04:16:00 PM EDT Smoked [facility] enter Smoking 02/15/2019 Denies Ever completed Denies Ever Smoked [place] 01:42:00 PM EDT Smoked [facility] enter Smoking 02/15/2019 Denies Ever completed Denies Ever Smoked [place] 01:38:00 PM EDT Smoked [facility] enter Smoking 02/14/2019 Denies Ever completed Denies Ever Smoked [place] 09:18:00 PM EDT Smoked [facility] enter Smoking 02/14/2019 Denies Ever completed Denies Ever Smoked [place] 08:24:00 PM EDT Smoked [facility] enter Smoking 02/14/2019 Denies Ever completed Denies Ever Smoked [place] 08:17:00 PM EDT Smoked [facility] enter Smoking 02/12/2019 Denies Ever completed Denies Ever Smoked [place] 04:00:00 PM EDT Smoked [facility] enter Smoking 02/12/2019 Denies Ever completed Denies Ever Smoked [place] 02:05:00 PM EDT Smoked [facility] enter Smoking 02/12/2019 Denies Ever completed Denies Ever Smoked [place] 04:16:00 AM EDT Smoked [facility] enter Smoking 02/11/2019 Denies Ever completed Denies Ever Smoked [place] 09:02:00 PM EDT Smoked [facility] enter Smoking 02/11/2019 Denies Ever completed Denies Ever Smoked [place] 08:05:00 PM EDT Smoked [facility] enter Smoking 02/11/2019 Denies Ever completed Denies Ever Smoked [place] 02:04:00 PM EDT Smoked [facility] enter Smoking 02/11/2019 Denies Ever completed Denies Ever Smoked [place] 01:59:00 PM EDT Smoked [facility] enter Smoking 02/11/2019 Denies Ever completed Denies Ever Smoked [place] 01:53:00 PM EDT Smoked [facility] enter Smoking 02/09/2019 Denies Ever completed Denies Ever Smoked [place] 09:28:00 PM EDT Smoked [facility] enter Smoking 02/09/2019 Denies Ever completed Denies Ever Smoked [place] 09:01:00 PM EDT Smoked [facility] enter Smoking 02/08/2019 Denies Ever completed Denies Ever Smoked [place] 01:43:00 PM EDT Smoked [facility] enter Smoking 02/08/2019 Denies Ever completed Denies Ever Smoked [place] 01:33:00 PM EDT Smoked [facility] enter Smoking 02/08/2019 Denies Ever completed Denies Ever Smoked [place] 01:31:00 PM EDT Smoked [facility] enter Smoking 02/07/2019 Denies Ever completed Denies Ever Smoked [place] 11:13:00 PM EDT Smoked [facility] enter Smoking 02/07/2019 Denies Ever completed Denies Ever Smoked [place] 10:58:00 PM EDT Smoked [facility] enter Smoking 02/07/2019 Denies Ever completed Denies Ever Smoked [place] 09:50:00 PM EDT Smoked [facility] enter Smoking 02/05/2019 Denies Ever completed Denies Ever Smoked [place] 06:16:00 AM EDT Smoked [facility] enter Smoking 02/04/2019 Denies Ever completed Denies Ever Smoked [place] 06:55:00 PM EDT Smoked [facility] enter Smoking 02/04/2019 Denies Ever completed Denies Ever Smoked [place] 06:37:00 PM EDT Smoked [facility] enter Smoking 02/01/2019 Denies Ever completed Denies Ever Smoked [place] 09:38:00 PM EDT Smoked [facility] enter Smoking 02/01/2019 Denies Ever completed Denies Ever Smoked [place] 02:51:00 PM EDT Smoked [facility] enter Smoking 01/30/2019 Denies Ever completed Denies Ever Smoked [place] 02:15:00 AM EDT Smoked [facility] C enter Smoking 01/29/2019 Denies Ever completed Denies Ever Smoked [place] 11:38:00 PM EDT Smoked [facility] enter Smoking 01/29/2019 Denies Ever completed Denies Ever Smoked [place] 10:00:00 PM EDT Smoked [facility] C enter Smoking 01/29/2019 Denies Ever completed Denies Ever Smoked [place] 12:22:00 PM EDT Smoked [facility] C enter Smoking 01/29/2019 Denies Ever completed Denies Ever Smoked [place] 12:18:00 PM EDT Smoked [facility] C enter Smoking 01/29/2019 Denies Ever completed Denies Ever Smoked [place] 12:15:00 PM EDT Smoked [facility] enter Smoking 01/26/2019 Denies Ever completed Denies Ever Smoked [place] 07:25:00 PM EDT Smoked [facility] C enter Smoking 01/26/2019 Denies Ever completed Denies Ever Smoked [place] 06:40:00 PM EDT Smoked [facility] enter Smoking 01/26/2019 Denies Ever completed Denies Ever Smoked [place] 06:37:00 PM EDT Smoked [facility] C enter Smoking 01/25/2019 Not Known completed Not Known [place] 11:11:00 AM EDT Medical C enter Smoking 01/24/2019 Not Known completed Not Known [place] 10:03:00 PM EDT Medical C enter Smoking 01/24/2019 Denies Ever completed Denies Ever Smoked [place] 08:33:00 PM EDT Smoked [facility] enter Smoking 01/24/2019 Denies Ever completed Denies Ever Smoked [place] 08:13:00 PM EDT Smoked [facility] enter Smoking 01/24/2019 Denies Ever completed Denies Ever Smoked [place] 07:37:00 PM EDT Smoked [facility] enter Vital Signs ID Date Data Source UNK Name Value Range Interpretation Code Description Data Source(s) Body weight 68.825713 kg 68.234019 kg [facility] [place] Body temperature 36.317067 Kaylie 36.966975 Kaylie [facility] Respiratory rate 18 /min 18 /min [facility] Oxygen 100 % 100 % [facility] saturation in [facility] Arterial blood Center by Pulse oximetry Heart rate 88 /min 88 /min [facility] Body height 170.774358 cm 170.230720 cm [facility] Diastolic blood 74 mm[Hg] 74 mm[Hg] [facility] pressure Medical Center Systolic blood 130 mm[Hg] 130 mm[Hg] [facility] Body mass index 23.4 kg/m2 23.4 kg/m2 [facility] (BMI) [Ratio] Medical Center Body temperature 37.456831 Kaylie 37.182971 Kaylie [facility] Respiratory rate 18 /min 18 /min [facility] Oxygen 93 % 93 % [facility] saturation in [facility] Arterial blood Center by Pulse oximetry Heart rate 97 /min 97 /min [facility] Diastolic blood 81 mm[Hg] 81 mm[Hg] [facility] Systolic blood 129 mm[Hg] 129 mm[Hg] [facility] Body temperature 37.958170 Kaylie 37.994303 Kaylie [facility] Respiratory rate 19 /min 19 /min [facility] Oxygen 93 % 93 % [place] saturation in Medical Arterial blood Center by Pulse oximetry Heart rate 96 /min 96 /min [facility] Diastolic blood 76 mm[Hg] 76 mm[Hg] [facility] pressure Medical Center Systolic blood 134 mm[Hg] 134 mm[Hg] [facility] Body temperature 37.703363 Kaylie 37.916682 Kaylie [facility] Respiratory rate 19 /min 19 /min [facility] Oxygen 93 % 93 % [place] saturation in Medical Arterial blood Center by Pulse oximetry Heart rate 95 /min 95 /min [facility] Diastolic blood 66 mm[Hg] 66 mm[Hg] [facility] [place] Systolic blood 154 mm[Hg] 154 mm[Hg] [facility] Body temperature 37.955106 Kaylie 37.431752 Kaylie [facility] Respiratory rate 18 /min 18 /min [facility] Oxygen 95 % 95 % [place] saturation in Medical Arterial blood Center by Pulse oximetry Heart rate 86 /min 86 /min [facility] Diastolic blood 72 mm[Hg] 72 mm[Hg] [facility] Systolic blood 108 mm[Hg] 108 mm[Hg] [facility] Body temperature 36.853865 Kaylie 36.772753 Kaylie [facility] Respiratory rate 18 /min 18 /min [facility] Oxygen 98 % 98 % [place] saturation in Medical Arterial blood Center by Pulse oximetry Heart rate 84 /min 84 /min [facility] Diastolic blood 80 mm[Hg] 80 mm[Hg] [facility] Systolic blood 127 mm[Hg] 127 mm[Hg] [facility] Body temperature 37.591059 Kaylie 37.313520 Kaylie [facility] Respiratory rate 16 /min 16 /min [facility] Oxygen 98 % 98 % [place] saturation in Medical Arterial blood Center by Pulse oximetry Heart rate 84 /min 84 /min [facility] Diastolic blood 76 mm[Hg] 76 mm[Hg] [facility] Systolic blood 128 mm[Hg] 128 mm[Hg] [facility] Body temperature 37.026234 Kaylie 37.715321 Kaylie [facility] Respiratory rate 16 /min 16 /min [facility] Oxygen 98 % 98 % [place] saturation in Medical Arterial blood Center by Pulse oximetry Heart rate 84 /min 84 /min [facility] Diastolic blood 76 mm[Hg] 76 mm[Hg] [facility] pressure Medical Center Systolic blood 128 mm[Hg] 128 mm[Hg] [facility] [place] Body temperature 37.103511 Kaylie 37.718571 Kaylie [facility] Respiratory rate 17 /min 17 /min [facility] Oxygen 98 % 98 % [place] saturation in Medical Arterial blood Center by Pulse oximetry Heart rate 87 /min 87 /min [facility] Diastolic blood 70 mm[Hg] 70 mm[Hg] [facility] Systolic blood 121 mm[Hg] 121 mm[Hg] [facility] Body temperature 36.558153 Kaylie 36.682009 Kaylie [facility] Respiratory rate 16 /min 16 /min [facility] Oxygen 98 % 98 % [place] saturation in Medical Arterial blood Center by Pulse oximetry Heart rate 89 /min 89 /min [facility] Diastolic blood 75 mm[Hg] 75 mm[Hg] [facility] Systolic blood 135 mm[Hg] 135 mm[Hg] [facility] [place] Body temperature 36.446574 Kaylie 36.290826 Kaylie [facility] Respiratory rate 17 /min 17 /min [facility] Oxygen 96 % 96 % [place] saturation in [facility] by Pulse oximetry Heart rate 95 /min 95 /min [facility] Diastolic blood 78 mm[Hg] 78 mm[Hg] [facility] pressure Medical Center Systolic blood 141 mm[Hg] 141 mm[Hg] [facility] Body temperature 37.752668 Kaylie 37.769422 Kaylie [facility] Respiratory rate 20 /min 20 /min [facility] Heart rate 98 /min 98 /min [facility] Diastolic blood 61 mm[Hg] 61 mm[Hg] [facility] Systolic blood 142 mm[Hg] 142 mm[Hg] [facility] Body temperature 36.160825 Kaylie 36.718058 Kaylie [facility] Respiratory rate 20 /min 20 /min [facility] Heart rate 80 /min 80 /min [facility] Diastolic blood 72 mm[Hg] 72 mm[Hg] [facility] Systolic blood 135 mm[Hg] 135 mm[Hg] [facility] Body temperature 36.922477 Kaylie 36.683595 Kaylie [facility] Respiratory rate 20 /min 20 /min [facility] Heart rate 91 /min 91 /min [facility] Diastolic blood 77 mm[Hg] 77 mm[Hg] [facility] Systolic blood 128 mm[Hg] 128 mm[Hg] [facility] Body temperature 36.473854 Kaylie 36.582718 Kaylie [facility] Respiratory rate 20 /min 20 /min [facility] Heart rate 102 /min 102 /min [facility] Diastolic blood 72 mm[Hg] 72 mm[Hg] [facility] Systolic blood 102 mm[Hg] 102 mm[Hg] [facility] Body weight 114.735452 kg 114.348825 kg [facility] Body height 175.169890 cm 175.805111 cm [facility] Body mass index 37.11 kg/m2 37.11 kg/m2 [facility] (BMI) [Ratio] [facility] Center Body temperature 36.887959 Kaylie 36.052812 Kaylie [facility] Respiratory rate 20 /min 20 /min [facility] Heart rate 91 /min 91 /min [facility] Diastolic blood 71 mm[Hg] 71 mm[Hg] [facility] Systolic blood 156 mm[Hg] 156 mm[Hg] [facility] Body temperature 36.029551 Kaylie 36.189857 Kaylie [facility] Respiratory rate 20 /min 20 /min [facility] Heart rate 97 /min 97 /min [facility] Diastolic blood 88 mm[Hg] 88 mm[Hg] [facility] Systolic blood 182 mm[Hg] 182 mm[Hg] [facility] Body weight 114.334349 kg 114.411458 kg [facility] Body height 177.978827 cm 177.350218 cm [facility] Body temperature 37.263874 Kaylie 37.849043 Kaylie [facility] Respiratory rate 18 /min 18 /min [facility] Heart rate 113 /min 113 /min [facility] Diastolic blood 102 mm[Hg] 102 mm[Hg] [facility] Systolic blood 156 mm[Hg] 156 mm[Hg] [facility] Oxygen 96 % 96 % [facility] saturation in [facility] Ar[facility] blood Center by Pulse oximetry Body temperature 37.619589 Kaylie 37.701986 Kaylie [facility] Respiratory rate 19 /min 19 /min [facility] Heart rate 107 /min 107 /min [facility] Diastolic blood 90 mm[Hg] 90 mm[Hg] [facility] Systolic blood 154 mm[Hg] 154 mm[Hg] [facility] Oxygen 96 % 96 % [facility] saturation in [facility] Ar[facility] blood Center by Pulse oximetry Body temperature 37.918430 Kaylie 37.557774 Kaylie [facility] Respiratory rate 19 /min 19 /min [facility] Heart rate 104 /min 104 /min [facility] Diastolic blood 92 mm[Hg] 92 mm[Hg] [facility] Systolic blood 148 mm[Hg] 148 mm[Hg] [facility] Oxygen 98 % 98 % [facility] saturation in [facility] by Pulse oximetry Body temperature 36.168641 Kaylie 36.354001 Kaylie [facility] Respiratory rate 17 /min 17 /min [facility] Heart rate 75 /min 75 /min [facility] Diastolic blood 78 mm[Hg] 78 mm[Hg] [facility] Systolic blood 125 mm[Hg] 125 mm[Hg] [facility] Oxygen 97 % 97 % [facility] saturation in [facility] blood Center by Pulse oximetry Oxygen 98 % 98 % [facility] saturation in [facility] blood [facility] by Pulse oximetry Body temperature 36.436617 Kaylie 36.794645 Kaylie [facility] Respiratory rate 17 /min 17 /min [facility] Oxygen 97 % 97 % [facility] saturation in [facility] by Pulse oximetry Heart rate 75 /min 75 /min [facility] Diastolic blood 81 mm[Hg] 81 mm[Hg] [facility] pressure [facility] Center Systolic blood 139 mm[Hg] 139 mm[Hg] [facility] Body temperature 36.036623 Kaylie 36.389126 Kaylie [facility] Respiratory rate 17 /min 17 /min [facility] Oxygen 95 % 95 % [facility] saturation in [facility] Ar[facility] blood Center by Pulse oximetry Heart rate 70 /min 70 /min [facility] Diastolic blood 71 mm[Hg] 71 mm[Hg] [facility] pressure [facility] Center Systolic blood 127 mm[Hg] 127 mm[Hg] [facility] Body temperature 36.417359 Kaylie 36.532583 Kaylie [facility] Respiratory rate 18 /min 18 /min [facility] Oxygen 97 % 97 % [facility] [place] saturation in [facility] Ar[facility] blood [facility] by Pulse oximetry Heart rate 73 /min 73 /min [facility] Diastolic blood 66 mm[Hg] 66 mm[Hg] [facility] Systolic blood 139 mm[Hg] 139 mm[Hg] [facility] Respiratory rate 16 /min 16 /min [facility] Oxygen 963 % 963 % [facility] saturation in [facility] by Pulse oximetry Heart rate 80 /min 80 /min [facility] Diastolic blood 80 mm[Hg] 80 mm[Hg] [facility] Systolic blood 154 mm[Hg] 154 mm[Hg] [facility] Body temperature 36.631592 Kaylie 36.209720 Kaylie [facility] Respiratory rate 19 /min 19 /min [facility] Oxygen 99 % 99 % [facility] [place] saturation in [facility] Ar[facility] blood Center by Pulse oximetry Heart rate 81 /min 81 /min [facility] Diastolic blood 76 mm[Hg] 76 mm[Hg] [facility] Systolic blood 133 mm[Hg] 133 mm[Hg] [facility] Body temperature 36.168205 Kaylie 36.198478 Kaylie [facility] Respiratory rate 16 /min 16 /min [facility] Oxygen 95 % 95 % [facility] [place] saturation in [facility] Ar[facility] blood Center by Pulse oximetry Heart rate 73 /min 73 /min [facility] Diastolic blood 74 mm[Hg] 74 mm[Hg] [facility] pressure [facility] Center Systolic blood 138 mm[Hg] 138 mm[Hg] [facility] Body temperature 36.761465 Kaylie 36.902102 Kaylie [facility] Respiratory rate 18 /min 18 /min [facility] Oxygen 98 % 98 % [facility] [place] saturation in [facility] Ar[facility] blood Center by Pulse oximetry Heart rate 76 /min 76 /min [facility] Diastolic blood 78 mm[Hg] 78 mm[Hg] [facility] pressure [facility] Center Systolic blood 121 mm[Hg] 121 mm[Hg] [facility] Body temperature 36.401817 Kaylie 36.667745 Kaylie [facility] Respiratory rate 17 /min 17 /min [facility] Oxygen 97 % 97 % [facility] [place] saturation in [facility] Ar[facility] blood Center by Pulse oximetry Heart rate 84 /min 84 /min [facility] Diastolic blood 74 mm[Hg] 74 mm[Hg] [facility] Center Systolic blood 128 mm[Hg] 128 mm[Hg] [facility] Body temperature 36.828523 Kaylie 36.597596 Kaylie [facility] Respiratory rate 18 /min 18 /min [facility] Oxygen 97 % 97 % [facility] [place] saturation in [facility] Ar[facility] blood [facility] by Pulse oximetry Heart rate 88 /min 88 /min [facility] Diastolic blood 102 mm[Hg] 102 mm[Hg] [facility] pressure [facility] Center Systolic blood 164 mm[Hg] 164 mm[Hg] [facility] Body temperature 36.536722 Kaylie 36.293532 Kaylie [facility] Respiratory rate 18 /min 18 /min [facility] Oxygen 98 % 98 % [facility] [place] saturation in [facility] Ar[facility] blood Center by Pulse oximetry Heart rate 77 /min 77 /min [facility] Diastolic blood 75 mm[Hg] 75 mm[Hg] [facility] pressure [facility] Center Systolic blood 136 mm[Hg] 136 mm[Hg] [facility] Body temperature 36.489403 Kaylie 36.275918 Kaylie [facility] Respiratory rate 18 /min 18 /min [facility] Oxygen 98 % 98 % [facility] [place] saturation in [facility] Ar[facility] blood Center by Pulse oximetry Heart rate 84 /min 84 /min [facility] Diastolic blood 79 mm[Hg] 79 mm[Hg] [facility] Systolic blood 142 mm[Hg] 142 mm[Hg] [facility] Body temperature 36.881508 Kaylie 36.776530 Kaylie [facility] Respiratory rate 19 /min 19 /min [facility] Oxygen 99 % 99 % [facility] [place] saturation in [facility] Ar[facility] blood Center by Pulse oximetry Heart rate 89 /min 89 /min [facility] Diastolic blood 87 mm[Hg] 87 mm[Hg] [facility] pressure [facility] Center Systolic blood 155 mm[Hg] 155 mm[Hg] [facility] Body temperature 36.312501 Kaylie 36.777786 Kaylie [facility] Respiratory rate 18 /min 18 /min [facility] Oxygen 99 % 99 % [facility] [place] saturation in [facility] Ar[facility] blood Center by Pulse oximetry Heart rate 100 /min 100 /min [facility] Diastolic blood 98 mm[Hg] 98 mm[Hg] [facility] pressure [facility] Center Systolic blood 145 mm[Hg] 145 mm[Hg] [facility] Body temperature 37.104138 Kaylie 37.990749 Kaylie [facility] Respiratory rate 20 /min 20 /min [facility] Oxygen 95 % 95 % [facility] [place] saturation in Medical Ar[facility] blood Center by Pulse oximetry Heart rate 88 /min 88 /min [facility] Diastolic blood 77 mm[Hg] 77 mm[Hg] [facility] Systolic blood 135 mm[Hg] 135 mm[Hg] [facility] Body weight 79.039328 kg 79.880522 kg [facility] Body temperature 36.196870 Kaylie 36.307717 Kaylie [facility] Respiratory rate 18 /min 18 /min [facility] Oxygen 99 % 99 % [facility] [place] saturation in Medical Ar[facility] blood Center by Pulse oximetry Heart rate 78 /min 78 /min [facility] Body height 172.064985 cm 172.792213 cm [facility] Diastolic blood 70 mm[Hg] 70 mm[Hg] [facility] pressure [facility] Center Systolic blood 130 mm[Hg] 130 mm[Hg] [facility] Body mass index 26.6 kg/m2 26.6 kg/m2 [facility] (BMI) [Ratio] [facility] Center Body temperature 37.782351 Kaylie 37.981154 Kaylie [facility] Respiratory rate 18 /min 18 /min [facility] Oxygen 98 % 98 % [facility] [place] saturation in Medical Ar[facility] blood Center by Pulse oximetry Heart rate 103 /min 103 /min [facility] Diastolic blood 88 mm[Hg] 88 mm[Hg] [facility] Systolic blood 142 mm[Hg] 142 mm[Hg] [facility] Body temperature 36.512944 Kaylie 36.654067 Kaylie [facility] Respiratory rate 18 /min 18 /min [facility] Oxygen 97 % 97 % [facility] [place] saturation in Medical Ar[facility] blood Center by Pulse oximetry Heart rate 77 /min 77 /min [facility] Diastolic blood 66 mm[Hg] 66 mm[Hg] [facility] Systolic blood 140 mm[Hg] 140 mm[Hg] [facility] Body temperature 36.439523 Kaylie 36.169754 Kaylie [facility] Respiratory rate 18 /min 18 /min [facility] Oxygen 96 % 96 % [facility] [place] saturation in Medical Arter[facility] blood Center by Pulse oximetry Heart rate 88 /min 88 /min [facility] Diastolic blood 75 mm[Hg] 75 mm[Hg] [facility] Systolic blood 119 mm[Hg] 119 mm[Hg] [facility] Body temperature 36.850341 Kaylie 36.791050 Kaylie [facility] Respiratory rate 19 /min 19 /min [facility] Oxygen 97 % 97 % [facility] [place] saturation in Medical Arter[facility] blood Center by Pulse oximetry Heart rate 101 /min 101 /min [facility] Diastolic blood 67 mm[Hg] 67 mm[Hg] [facility] Systolic blood 108 mm[Hg] 108 mm[Hg] [facility] Body temperature 36.850767 Kaylie 36.268205 Kaylie [facility] Respiratory rate 17 /min 17 /min [facility] Oxygen 94 % 94 % [facility] [place] saturation in Medical Arterial blood Center by Pulse oximetry Heart rate 87 /min 87 /min [facility] Diastolic blood 81 mm[Hg] 81 mm[Hg] [facility] pressure [facility] Center Systolic blood 120 mm[Hg] 120 mm[Hg] [facility] Body temperature 36.282096 Kaylie 36.560859 Kaylie [facility] Respiratory rate 17 /min 17 /min [facility] Oxygen 97 % 97 % [facility] [place] saturation in Medical Ar[facility] blood Center by Pulse oximetry Heart rate 70 /min 70 /min [facility] Diastolic blood 66 mm[Hg] 66 mm[Hg] [facility] pressure [facility] Center Systolic blood 139 mm[Hg] 139 mm[Hg] [facility] Body temperature 36.850213 Kaylie 36.735886 Kaylie [facility] Respiratory rate 17 /min 17 /min [facility] Oxygen 95 % 95 % [facility] [place] saturation in Medical Arter[facility] blood Center by Pulse oximetry Heart rate 69 /min 69 /min [facility] Diastolic blood 76 mm[Hg] 76 mm[Hg] [facility] pressure [facility] Center Systolic blood 122 mm[Hg] 122 mm[Hg] [facility] Body temperature 36.459164 Kaylie 36.659700 Kaylie [facility] Respiratory rate 17 /min 17 /min [facility] Oxygen 98 % 98 % [place] saturation in Medical Arterial blood Center by Pulse oximetry Heart rate 73 /min 73 /min [facility] Diastolic blood 69 mm[Hg] 69 mm[Hg] [facility] pressure [facility] Center Systolic blood 133 mm[Hg] 133 mm[Hg] [facility] Diastolic blood 84 mmHg 84 mmHg [facility] Systolic blood 150 mmHg 150 mmHg [facility] Respiratory rate 18 bpm 18 bpm [facility] Heart rate 86 bpm 86 bpm [facility] Body temperature 97.8 Fahrenheit 97.8 Fahrenhei t [facility] Diastolic blood 79 mmHg 79 mmHg [facility] Systolic blood 135 mmHg 135 mmHg [facility] Respiratory rate 18 bpm 18 bpm [facility] Heart rate 92 bpm 92 bpm [facility] Body temperature 97.5 Fahrenheit 97.5 Fahrenh t [facility] Diastolic blood 77 mmHg 77 mmHg [facility] Systolic blood 124 mmHg 124 mmHg [facility] Respiratory rate 18 bpm 18 bpm [facility] Heart rate 90 bpm 90 bpm [facility] Body temperature 98.0 Fahrenheit 98.0 Fahrenh t [facility] Diastolic blood 89 mmHg 89 mmHg [facility] Systolic blood 149 mmHg 149 mmHg [facility] Respiratory rate 18 bpm 18 bpm [facility] Heart rate 105 bpm 105 bpm [facility] Body temperature 98.2 Fahrenheit 98.2 Fahrenh t [facility] Body temperature 97.3 Fahrenheit 97.3 Fahrenh t [facility] Body weight 233 lbs 233 lbs [facility] Diastolic blood 87 mmHg 87 mmHg [facility] Systolic blood 140 mmHg 140 mmHg [facility] Respiratory rate 18 bpm 18 bpm [facility] Heart rate 103 bpm 103 bpm [facility] Body temperature 98.1 Fahrenheit 98.1 Fahrenh t [facility] Body temperature 97.4 Fahrenheit 97.4 Fahrenh t [facility] Body temperature 36.161145 Kaylie 36.166570 Kaylie [facility] Respiratory rate 17 /min 17 /min [facility] Oxygen 95 % 95 % [facility] saturation in Medical Arterial blood Center by Pulse oximetry Heart rate 79 /min 79 /min [facility] Diastolic blood 71 mm[Hg] 71 mm[Hg] [facility] Systolic blood 122 mm[Hg] 122 mm[Hg] [facility] Body temperature 36.458638 Kaylie 36.021307 Kaylie [facility] Respiratory rate 17 /min 17 /min [facility] Oxygen 98 % 98 % [facility] saturation in Medical Arterial blood Center by Pulse oximetry Heart rate 79 /min 79 /min [facility] Diastolic blood 69 mm[Hg] 69 mm[Hg] [facility] Systolic blood 133 mm[Hg] 133 mm[Hg] [facility] Body temperature 37.580655 Kaylie 37.079869 Kaylie [facility] Respiratory rate 16 /min 16 /min [facility] Oxygen 97 % 97 % [place] saturation in Medical Arterial blood Center by Pulse oximetry Heart rate 96 /min 96 /min [facility] Diastolic blood 91 mm[Hg] 91 mm[Hg] [facility] pressure Medical Center Systolic blood 154 mm[Hg] 154 mm[Hg] [facility] Body temperature 37.451425 Kaylie 37.636689 Kaylie [facility] Respiratory rate 18 /min 18 /min [facility] Heart rate 102 /min 102 /min [facility] Diastolic blood 107 mm[Hg] 107 mm[Hg] [facility] Systolic blood 162 mm[Hg] 162 mm[Hg] [facility] Body temperature 36.307662 Kaylie 36.182659 Kaylie [facility] Respiratory rate 18 /min 18 /min [facility] Oxygen 97 % 97 % [place] saturation in Medical Arterial blood Center by Pulse oximetry Heart rate 101 /min 101 /min [facility] Diastolic blood 95 mm[Hg] 95 mm[Hg] [facility] Systolic blood 159 mm[Hg] 159 mm[Hg] [facility] Body temperature 36.994218 Kaylie 36.795729 Kaylie [facility] Respiratory rate 18 /min 18 /min [facility] Oxygen 96 % 96 % [place] saturation in Medical Arterial blood Center by Pulse oximetry Heart rate 93 /min 93 /min [facility] Diastolic blood 61 mm[Hg] 61 mm[Hg] [facility] Systolic blood 111 mm[Hg] 111 mm[Hg] [facility] Body temperature 36.022777 Kaylie 36.789561 Kaylie [facility] Respiratory rate 16 /min 16 /min [facility] Oxygen 98 % 98 % [place] saturation in Medical Arterial blood Center by Pulse oximetry Heart rate 78 /min 78 /min [facility] Diastolic blood 73 mm[Hg] 73 mm[Hg] [facility] Systolic blood 124 mm[Hg] 124 mm[Hg] [facility] Body temperature 36.778847 Kaylie 36.852508 Kaylie [facility] Respiratory rate 16 /min 16 /min [facility] Oxygen 96 % 96 % [facility] [place] saturation in Medical Arterial blood Center by Pulse oximetry Heart rate 94 /min 94 /min [facility] Diastolic blood 71 mm[Hg] 71 mm[Hg] [facility] pressure [facility] Center Systolic blood 131 mm[Hg] 131 mm[Hg] [facility] Body temperature 36.735313 Kaylie 36.809074 Kaylie [facility] Respiratory rate 15 /min 15 /min [facility] Oxygen 98 % 98 % [place] saturation in Medical Arterial blood Center by Pulse oximetry Heart rate 100 /min 100 /min [facility] Diastolic blood 73 mm[Hg] 73 mm[Hg] [facility] pressure [facility] Center Systolic blood 129 mm[Hg] 129 mm[Hg] [facility] Body weight 77.141608 kg 77.033448 kg [facility] Body temperature 36.935010 Kaylie 36.731178 Kaylie [facility] Respiratory rate 18 /min 18 /min [facility] Oxygen 96 % 96 % [facility] saturation in Medical Arterial blood Center by Pulse oximetry Heart rate 99 /min 99 /min [facility] Body height 167.435388 cm 167.337708 cm [facility] Diastolic blood 74 mm[Hg] 74 mm[Hg] [facility] pressure [facility] Center Systolic blood 128 mm[Hg] 128 mm[Hg] [facility] Body mass index 27.4 kg/m2 27.4 kg/m2 [facility] (BMI) [Ratio] [facility] Body temperature 36.437814 Kaylie 36.672683 Kaylie [facility] Respiratory rate 17 /min 17 /min [facility] Oxygen 99 % 99 % [place] saturation in Medical Arterial blood Center by Pulse oximetry Heart rate 81 /min 81 /min [facility] Diastolic blood 69 mm[Hg] 69 mm[Hg] [facility] pressure [facility] Center Systolic blood 118 mm[Hg] 118 mm[Hg] [facility] Body weight 113.169804 kg 113.884250 kg [facility] Body temperature 37.928848 Kaylie 37.479702 Kaylie [facility] Respiratory rate 19 /min 19 /min [facility] Oxygen 94 % 94 % [place] saturation in Medical Arterial blood Center by Pulse oximetry Heart rate 102 /min 102 /min [facility] Body height 172.357987 cm 172.622656 cm [facility] Diastolic blood 78 mm[Hg] 78 mm[Hg] [facility] pressure Medical Center Systolic blood 138 mm[Hg] 138 mm[Hg] [facility] Body mass index 38.0 kg/m2 38.0 kg/m2 [facility] (BMI) [Ratio] [facility] Center Body temperature 36.061608 Kaylie 36.348577 Kaylie [facility] Respiratory rate 18 /min 18 /min [facility] Oxygen 98 % 98 % [place] saturation in Medical Arterial blood Center by Pulse oximetry Heart rate 104 /min 104 /min [facility] Diastolic blood 50 mm[Hg] 50 mm[Hg] [facility] Systolic blood 91 mm[Hg] 91 mm[Hg] [facility] Body temperature 36.566107 Kaylie 36.702541 Kaylie [facility] Respiratory rate 18 /min 18 /min [facility] Oxygen 91 % 91 % [place] saturation in Medical [facility] by Pulse oximetry Heart rate 97 /min 97 /min [facility] Diastolic blood 75 mm[Hg] 75 mm[Hg] [facility] Systolic blood 126 mm[Hg] 126 mm[Hg] [facility] Body temperature 36.429705 Kaylie 36.243522 Kaylie [facility] Respiratory rate 18 /min 18 /min [facility] Oxygen 100 % 100 % [place] saturation in Medical Arterial blood Center by Pulse oximetry Heart rate 95 /min 95 /min [facility] Diastolic blood 57 mm[Hg] 57 mm[Hg] [facility] Systolic blood 106 mm[Hg] 106 mm[Hg] [facility] Body weight 83.909258 kg 83.466102 kg [facility] Body temperature 36.925104 Kaylie 36.085675 Kaylie [facility] Respiratory rate 19 /min 19 /min [facility] Oxygen 97 % 97 % [facility] [place] saturation in Medical Arterial blood Center by Pulse oximetry Heart rate 95 /min 95 /min [facility] Body height 175.012525 cm 175.149513 cm [facility] Diastolic blood 58 mm[Hg] 58 mm[Hg] [facility] pressure Medical Center Systolic blood 107 mm[Hg] 107 mm[Hg] [facility] Body mass index 27.3 kg/m2 27.3 kg/m2 [facility] (BMI) [Ratio] [facility] Body temperature 36.567397 Kaylie 36.379317 Kaylie [facility] Respiratory rate 16 /min 16 /min [facility] Oxygen 98 % 98 % [place] saturation in Medical Arterial blood Center by Pulse oximetry Heart rate 84 /min 84 /min [facility] Diastolic blood 74 mm[Hg] 74 mm[Hg] [facility] Systolic blood 141 mm[Hg] 141 mm[Hg] [facility] Body temperature 37.612378 Kaylie 37.573738 Kaylie [facility] Respiratory rate 18 /min 18 /min [facility] Oxygen 96 % 96 % [place] saturation in Medical Arterial blood Center by Pulse oximetry Heart rate 90 /min 90 /min [facility] Diastolic blood 60 mm[Hg] 60 mm[Hg] [facility] Systolic blood 103 mm[Hg] 103 mm[Hg] [facility] Body temperature 37.575057 Kaylie 37.665983 Kaylie [facility] Respiratory rate 17 /min 17 /min [facility] Oxygen 99 % 99 % [facility] [place] saturation in Medical Arterial blood Center by Pulse oximetry Heart rate 88 /min 88 /min [facility] Diastolic blood 86 mm[Hg] 86 mm[Hg] [facility] Systolic blood 138 mm[Hg] 138 mm[Hg] [facility] Body temperature 36.433445 Kaylie 36.395914 Kaylie [facility] Respiratory rate 16 /min 16 /min [facility] Oxygen 98 % 98 % [place] saturation in Medical Arterial blood Center by Pulse oximetry Heart rate 78 /min 78 /min [facility] Diastolic blood 91 mm[Hg] 91 mm[Hg] [facility] Systolic blood 145 mm[Hg] 145 mm[Hg] [facility] Body temperature 36.802566 Kaylie 36.420051 Kaylie [facility] Respiratory rate 16 /min 16 /min [facility] Oxygen 98 % 98 % [place] saturation in Medical Arterial blood Center by Pulse oximetry Heart rate 75 /min 75 /min [facility] Diastolic blood 84 mm[Hg] 84 mm[Hg] [facility] pressure [facility] Center Systolic blood 151 mm[Hg] 151 mm[Hg] [facility] [place] Body temperature 36.620283 Kaylie 36.611513 Kaylie [facility] Respiratory rate 16 /min 16 /min [facility] Oxygen 98 % 98 % [place] saturation in Medical Arterial blood Center by Pulse oximetry Heart rate 74 /min 74 /min [facility] Diastolic blood 87 mm[Hg] 87 mm[Hg] [facility] Systolic blood 148 mm[Hg] 148 mm[Hg] [facility] Body temperature 36.849870 Kaylie 36.645081 Kaylie [facility] Respiratory rate 16 /min 16 /min [facility] Oxygen 96 % 96 % [place] saturation in Medical Arterial blood Center by Pulse oximetry Heart rate 79 /min 79 /min [facility] Diastolic blood 88 mm[Hg] 88 mm[Hg] [facility] Systolic blood 151 mm[Hg] 151 mm[Hg] [facility] Body temperature 37.237825 Kaylie 37.236800 Kaylie [facility] Respiratory rate 16 /min 16 /min [facility] Oxygen 98 % 98 % [place] saturation in Medical Arterial blood Center by Pulse oximetry Heart rate 86 /min 86 /min [facility] Diastolic blood 94 mm[Hg] 94 mm[Hg] [facility] Center Systolic blood 145 mm[Hg] 145 mm[Hg] [facility] Body temperature 36.691383 Kaylie 36.621415 Kaylie [facility] Respiratory rate 19 /min 19 /min [facility] Oxygen 97 % 97 % [place] saturation in Medical Arterial blood Center by Pulse oximetry Heart rate 92 /min 92 /min [facility] Diastolic blood 88 mm[Hg] 88 mm[Hg] [facility] Systolic blood 148 mm[Hg] 148 mm[Hg] [facility] Body temperature 36.592759 Kaylie 36.059742 Kaylie [facility] Respiratory rate 17 /min 17 /min [facility] Oxygen 97 % 97 % [place] saturation in Medical Arterial blood Center by Pulse oximetry Heart rate 71 /min 71 /min [facility] Diastolic blood 87 mm[Hg] 87 mm[Hg] [facility] Center Systolic blood 139 mm[Hg] 139 mm[Hg] [facility] Body temperature 36.168210 Kaylie 36.929460 Kaylie [facility] Respiratory rate 18 /min 18 /min [facility] Oxygen 97 % 97 % [place] saturation in Medical Arterial blood Center by Pulse oximetry Heart rate 84 /min 84 /min [facility] Diastolic blood 77 mm[Hg] 77 mm[Hg] [facility] Systolic blood 132 mm[Hg] 132 mm[Hg] [facility] Diastolic blood 68 mm[Hg] 68 mm[Hg] [facility] pressure [facility] Center Systolic blood 119 mm[Hg] 119 mm[Hg] [facility] Body temperature 36.428743 Kaylie 36.013407 Kaylie [facility] Respiratory rate 17 /min 17 /min [facility] Oxygen 98 % 98 % [place] saturation in Medical Arterial blood Center by Pulse oximetry Heart rate 88 /min 88 /min [facility] Body temperature 36.198536 Kaylie 36.222121 Kaylie [facility] Respiratory rate 17 /min 17 /min [facility] Oxygen 97 % 97 % [place] saturation in Medical Arterial blood Center by Pulse oximetry Heart rate 81 /min 81 /min [facility] Diastolic blood 72 mm[Hg] 72 mm[Hg] [facility] Systolic blood 131 mm[Hg] 131 mm[Hg] [facility] Body weight 90.526796 kg 90.290168 kg [facility] Body temperature 36.037830 Kaylie 36.917806 Kaylie [facility] Respiratory rate 16 /min 16 /min [facility] Oxygen 9 % 9 % [place] saturation in Medical Arterial blood Center by Pulse oximetry Heart rate 80 /min 80 /min [facility] Body height 177.458056 cm 177.418188 cm [facility] Diastolic blood 95 mm[Hg] 95 mm[Hg] [facility] pressure [facility] Center Systolic blood 152 mm[Hg] 152 mm[Hg] [facility] Body mass index 28.6 kg/m2 28.6 kg/m2 [facility] (BMI) [Ratio] [facility] Center Body temperature 36.600233 Kaylie 36.623151 Kaylie [facility] Respiratory rate 18 /min 18 /min [facility] Oxygen 100 % 100 % [place] saturation in Medical Arterial blood Center by Pulse oximetry Heart rate 81 /min 81 /min [facility] Diastolic blood 70 mm[Hg] 70 mm[Hg] [facility] Systolic blood 119 mm[Hg] 119 mm[Hg] [facility] Body temperature 36.845989 Kaylie 36.657517 Kaylie [facility] Respiratory rate 18 /min 18 /min [facility] Oxygen 97 % 97 % [place] saturation in Medical Arterial blood Center by Pulse oximetry Heart rate 86 /min 86 /min [facility] Diastolic blood 76 mm[Hg] 76 mm[Hg] [facility] Center Systolic blood 119 mm[Hg] 119 mm[Hg] [facility] Body temperature 36.380169 Kaylie 36.976500 Kaylie [facility] Respiratory rate 18 /min 18 /min [facility] Oxygen 97 % 97 % [place] saturation in Medical Arterial blood Center by Pulse oximetry Heart rate 94 /min 94 /min [facility] Diastolic blood 87 mm[Hg] 87 mm[Hg] [facility] Center Systolic blood 140 mm[Hg] 140 mm[Hg] [facility] Body temperature 36.314248 Kaylie 36.173383 Kaylie [facility] Respiratory rate 19 /min 19 /min [facility] Oxygen 100 % 100 % [place] saturation in Medical Arterial blood Center by Pulse oximetry Heart rate 83 /min 83 /min [facility] Diastolic blood 71 mm[Hg] 71 mm[Hg] [facility] Systolic blood 126 mm[Hg] 126 mm[Hg] [facility] Body temperature 36.270299 Kaylie 36.181387 Kaylie [facility] Respiratory rate 18 /min 18 /min [facility] Oxygen 99 % 99 % [place] saturation in Medical Arterial blood Center by Pulse oximetry Heart rate 79 /min 79 /min [facility] Diastolic blood 77 mm[Hg] 77 mm[Hg] [facility] Center Systolic blood 126 mm[Hg] 126 mm[Hg] [facility] Body weight 125.815927 kg 125.936886 kg [facility] Body temperature 36.316654 Kaylie 36.844180 Kaylie [facility] Respiratory rate 18 /min 18 /min [facility] Oxygen 98 % 98 % [place] saturation in Medical Arterial blood Center by Pulse oximetry Heart rate 98 /min 98 /min [facility] Body height 177.356604 cm 177.340545 cm [facility] Diastolic blood 78 mm[Hg] 78 mm[Hg] [facility] pressure [facility] Systolic blood 110 mm[Hg] 110 mm[Hg] [facility] Body mass index 39.5 kg/m2 39.5 kg/m2 [facility] (BMI) [Ratio] [facility] Center Body temperature 36.670561 Kaylie 36.667183 Kaylie [facility] Respiratory rate 17 /min 17 /min [facility] Oxygen 96 % 96 % [place] saturation in Medical Arterial blood Center by Pulse oximetry Heart rate 88 /min 88 /min [facility] Diastolic blood 75 mm[Hg] 75 mm[Hg] [facility] Systolic blood 104 mm[Hg] 104 mm[Hg] [facility] Body weight 110.661827 kg 110.534205 kg [facility] Body temperature 36.507908 Kaylie 36.588485 Kaylie [facility] Respiratory rate 18 /min 18 /min [facility] Oxygen 98 % 98 % [place] saturation in Medical Arterial blood Center by Pulse oximetry Heart rate 78 /min 78 /min [facility] Body height 187.680576 cm 187.189566 cm [facility] Diastolic blood 78 mm[Hg] 78 mm[Hg] [facility] Center Systolic blood 148 mm[Hg] 148 mm[Hg] [facility] Body mass index 31.1 kg/m2 31.1 kg/m2 [facility] (BMI) [Ratio] [facility] Body temperature 36.011151 Kaylie 36.321172 Kaylie [facility] Respiratory rate 17 /min 17 /min [facility] Oxygen 98 % 98 % [place] saturation in Medical Arterial blood Center by Pulse oximetry Heart rate 75 /min 75 /min [facility] Diastolic blood 68 mm[Hg] 68 mm[Hg] [facility] Center Systolic blood 129 mm[Hg] 129 mm[Hg] [facility] Oxygen 98 % 98 % [place] saturation in Medical Arterial blood Center by Pulse oximetry Heart rate 75 /min 75 /min [facility] Diastolic blood 68 mm[Hg] 68 mm[Hg] [facility] Systolic blood 133 mm[Hg] 133 mm[Hg] [facility] Body temperature 36.269489 Kaylie 36.425359 Kaylie [facility] Respiratory rate 17 /min 17 /min [facility] Body temperature 36.227177 Kaylie 36.072625 Kaylie [facility] Respiratory rate 17 /min 17 /min [facility] Oxygen 98 % 98 % [place] saturation in Medical Arterial blood Center by Pulse oximetry Heart rate 82 /min 82 /min [facility] Diastolic blood 87 mm[Hg] 87 mm[Hg] [facility] Systolic blood 142 mm[Hg] 142 mm[Hg] [facility] Body temperature 36.602747 Kaylie 36.522640 Kaylie [facility] Oxygen 97 % 97 % [place] saturation in Medical Arterial blood Center by Pulse oximetry Heart rate 87 /min 87 /min [facility] Diastolic blood 81 mm[Hg] 81 mm[Hg] [facility] Systolic blood 150 mm[Hg] 150 mm[Hg] [facility] Body temperature 37.182175 Kaylie 37.589099 Kaylie [facility] Respiratory rate 19 /min 19 /min [facility] Oxygen 96 % 96 % [place] saturation in Medical Arterial blood Center by Pulse oximetry Heart rate 89 /min 89 /min [facility] Diastolic blood 91 mm[Hg] 91 mm[Hg] [facility] Systolic blood 158 mm[Hg] 158 mm[Hg] [facility] Body weight 104.284479 kg 104.566516 kg [facility] Body temperature 37.464762 Kaylie 37.467588 Kaylie [facility] Respiratory rate 17 /min 17 /min [facility] Oxygen 96 % 96 % [place] saturation in Medical Arterial blood Center by Pulse oximetry Heart rate 92 /min 92 /min [facility] Body height 177.897178 cm 177.304533 cm [facility] Diastolic blood 101 mm[Hg] 101 mm[Hg] [facility] Systolic blood 152 mm[Hg] 152 mm[Hg] [facility] Body mass index 33.0 kg/m2 33.0 kg/m2 [facility] (BMI) [Ratio] Medical Center Body weight 110.130144 kg 110.628352 kg [facility] Body temperature 36.871602 Kaylie 36.200821 Kaylie [facility] Respiratory rate 18 /min 18 /min [facility] Oxygen 98 % 98 % [place] saturation in Medical Arterial blood Center by Pulse oximetry Heart rate 78 /min 78 /min [facility] Body height 185.498176 cm 185.199601 cm [facility] Diastolic blood 78 mm[Hg] 78 mm[Hg] [facility] Systolic blood 142 mm[Hg] 142 mm[Hg] [facility] Body mass index 31.9 kg/m2 31.9 kg/m2 [facility] (BMI) [Ratio] [facility] Body temperature 36.507009 Kaylie 36.675394 Kaylie [facility] Respiratory rate 18 /min 18 /min [facility] Oxygen 95 % 95 % [place] saturation in Medical Arterial blood Center by Pulse oximetry Heart rate 91 /min 91 /min [facility] Diastolic blood 74 mm[Hg] 74 mm[Hg] [facility] Center Systolic blood 144 mm[Hg] 144 mm[Hg] [facility] Body temperature 37.971363 Kaylie 37.432817 Kaylie [facility] Respiratory rate 20 /min 20 /min [facility] Oxygen 96 % 96 % [place] saturation in Medical Arterial blood Center by Pulse oximetry Heart rate 89 /min 89 /min [facility] Diastolic blood 79 mm[Hg] 79 mm[Hg] [facility] Systolic blood 140 mm[Hg] 140 mm[Hg] [facility] Body weight 90.924726 kg 90.282114 kg [facility] Body temperature 36.991817 Kaylie 36.817454 Kaylie [facility] Respiratory rate 18 /min 18 /min [facility] Oxygen 99 % 99 % [place] saturation in Medical Arterial blood Center by Pulse oximetry Heart rate 97 /min 97 /min [facility] Body height 177.024727 cm 177.805913 cm [facility] Diastolic blood 86 mm[Hg] 86 mm[Hg] [facility] Systolic blood 157 mm[Hg] 157 mm[Hg] [facility] Body mass index 28.6 kg/m2 28.6 kg/m2 [facility] (BMI) [Ratio] [facility] Center Body temperature 36.451503 Kaylie 36.689944 Kaylie [facility] Respiratory rate 19 /min 19 /min [facility] Oxygen 97 % 97 % [place] saturation in Medical Arterial blood Center by Pulse oximetry Heart rate 78 /min 78 /min [facility] Diastolic blood 78 mm[Hg] 78 mm[Hg] [facility] Systolic blood 132 mm[Hg] 132 mm[Hg] [facility] Body temperature 37.330279 Kaylie 37.036409 Kaylie [facility] Respiratory rate 18 /min 18 /min [facility] Oxygen 96 % 96 % [place] saturation in Medical Arterial blood Center by Pulse oximetry Heart rate 92 /min 92 /min [facility] Diastolic blood 64 mm[Hg] 64 mm[Hg] [facility] Systolic blood 117 mm[Hg] 117 mm[Hg] [facility] Body temperature 37.168840 Kaylie 37.151389 Kaylie [facility] Respiratory rate 19 /min 19 /min [facility] Oxygen 98 % 98 % [place] saturation in Medical Arterial blood Center by Pulse oximetry Heart rate 96 /min 96 /min [facility] Diastolic blood 98 mm[Hg] 98 mm[Hg] [facility] Center Systolic blood 148 mm[Hg] 148 mm[Hg] [facility] Body temperature 36.022717 Kaylie 36.865581 Kaylie [facility] Respiratory rate 18 /min 18 /min [facility] Oxygen 98 % 98 % [place] saturation in Medical Arterial blood Center by Pulse oximetry Heart rate 88 /min 88 /min [facility] Diastolic blood 78 mm[Hg] 78 mm[Hg] [facility] Center Systolic blood 134 mm[Hg] 134 mm[Hg] [facility] Body temperature 36.602665 Kaylie 36.520074 Kaylie [facility] Respiratory rate 18 /min 18 /min [facility] Oxygen 90 % 90 % [place] saturation in Medical Arterial blood Center by Pulse oximetry Heart rate 76 /min 76 /min [facility] Diastolic blood 76 mm[Hg] 76 mm[Hg] [facility] Center Systolic blood 134 mm[Hg] 134 mm[Hg] [facility] Oxygen 95 % 95 % [place] saturation in Medical Arterial blood Center by Pulse oximetry Heart rate 74 /min 74 /min [facility] Diastolic blood 81 mm[Hg] 81 mm[Hg] [facility] Center Systolic blood 127 mm[Hg] 127 mm[Hg] [facility] Body temperature 36.352398 Kayile 36.826549 Kaylie [facility] Respiratory rate 16 /min 16 /min [facility] Body temperature 36.945544 Kaylie 36.346119 Kaylie [facility] Oxygen 95 % 95 % [place] saturation in Medical Arterial blood Center by Pulse oximetry Heart rate 79 /min 79 /min [facility] Diastolic blood 74 mm[Hg] 74 mm[Hg] [facility] Center Systolic blood 131 mm[Hg] 131 mm[Hg] [facility] Body temperature 37.568388 Kaylie 37.127615 Kaylie [facility] Respiratory rate 16 /min 16 /min [facility] Oxygen 98 % 98 % [place] saturation in Medical Arterial blood Center by Pulse oximetry Heart rate 84 /min 84 /min [facility] Diastolic blood 74 mm[Hg] 74 mm[Hg] [facility] Center Systolic blood 131 mm[Hg] 131 mm[Hg] [facility] Body temperature 37.515858 Kaylie 37.844000 Kaylie [facility] Respiratory rate 17 /min 17 /min [facility] Oxygen 99 % 99 % [place] saturation in Medical Arterial blood Center by Pulse oximetry Heart rate 81 /min 81 /min [facility] Diastolic blood 78 mm[Hg] 78 mm[Hg] [facility] pressure [facility] Center Systolic blood 127 mm[Hg] 127 mm[Hg] [facility] Body weight 104.517110 kg 104.771587 kg [facility] Body temperature 36.573376 Kaylie 36.568805 Kaylie [facility] Respiratory rate 17 /min 17 /min [facility] Oxygen 98 % 98 % [place] saturation in Medical Arterial blood Center by Pulse oximetry Heart rate 101 /min 101 /min [facility] Body height 177.932759 cm 177.451945 cm [facility] Diastolic blood 94 mm[Hg] 94 mm[Hg] [facility] Center Systolic blood 163 mm[Hg] 163 mm[Hg] [facility] Body mass index 33.0 kg/m2 33.0 kg/m2 [facility] (BMI) [Ratio] [facility] Center Body temperature 36.901594 Kaylie 36.056752 Kaylie [facility] Respiratory rate 17 /min 17 /min [facility] Oxygen 98 % 98 % [place] saturation in Medical Arterial blood Center by Pulse oximetry Heart rate 72 /min 72 /min [facility] Diastolic blood 96 mm[Hg] 96 mm[Hg] [facility] Center Systolic blood 139 mm[Hg] 139 mm[Hg] [facility] Body temperature 36.408826 Kaylie 36.561302 Kaylie [facility] Respiratory rate 18 /min 18 /min [facility] Oxygen 97 % 97 % [facility] [place] saturation in Medical Arterial blood Center by Pulse oximetry Heart rate 66 /min 66 /min [facility] Diastolic blood 52 mm[Hg] 52 mm[Hg] [facility] Center Systolic blood 100 mm[Hg] 100 mm[Hg] [facility] Body weight 77.343757 kg 77.190183 kg [facility] Body temperature 36.528190 Kaylie 36.075037 Kaylie [facility] Respiratory rate 18 /min 18 /min [facility] Oxygen 97 % 97 % [facility] [place] saturation in [facility] by Pulse oximetry Heart rate 82 /min 82 /min [facility] Body height 167.474762 cm 167.911092 cm [facility] Diastolic blood 80 mm[Hg] 80 mm[Hg] [facility] Center Systolic blood 130 mm[Hg] 130 mm[Hg] [facility] Body mass index 27.4 kg/m2 27.4 kg/m2 [facility] (BMI) [Ratio] [facility] Body temperature 36.488148 Kaylie 36.817533 Kaylie [facility] Respiratory rate 17 /min 17 /min [facility] Oxygen 99 % 99 % [facility] [place] saturation in [facility] Center by Pulse oximetry Heart rate 88 /min 88 /min [facility] Diastolic blood 77 mm[Hg] 77 mm[Hg] [facility] Center Systolic blood 128 mm[Hg] 128 mm[Hg] [facility] Body temperature 37.134713 Kaylie 37.505695 Kaylie [facility] Respiratory rate 18 /min 18 /min [facility] Oxygen 96 % 96 % [facility] [place] saturation in [facility] blood Center by Pulse oximetry Heart rate 94 /min 94 /min [facility] Diastolic blood 80 mm[Hg] 80 mm[Hg] [facility] Center Systolic blood 122 mm[Hg] 122 mm[Hg] [facility] Body temperature 36.270719 Kaylie 36.702954 Kaylie [facility] Respiratory rate 20 /min 20 /min [facility] Oxygen 94 % 94 % [facility] [place] saturation in [facility] Ar[facility] blood Center by Pulse oximetry Heart rate 93 /min 93 /min [facility] Diastolic blood 61 mm[Hg] 61 mm[Hg] [facility] Systolic blood 122 mm[Hg] 122 mm[Hg] [facility] Body temperature 36.390742 Kaylie 36.906675 Kaylie [facility] Respiratory rate 17 /min 17 /min [facility] Oxygen 97 % 97 % [facility] [place] saturation in [facility] Ar[facility] blood Center by Pulse oximetry Heart rate 81 /min 81 /min [facility] Diastolic blood 82 mm[Hg] 82 mm[Hg] [facility] Systolic blood 142 mm[Hg] 142 mm[Hg] [facility] Body temperature 36.267730 Kaylie 36.401718 Kaylie [facility] Respiratory rate 18 /min 18 /min [facility] Oxygen 98 % 98 % [facility] [place] saturation in [facility] Ar[facility] blood Center by Pulse oximetry Heart rate 86 /min 86 /min [facility] Diastolic blood 78 mm[Hg] 78 mm[Hg] [facility] Systolic blood 122 mm[Hg] 122 mm[Hg] [facility] Body temperature 36.295550 Kaylie 36.848953 Kaylie [facility] Respiratory rate 17 /min 17 /min [facility] Oxygen 96 % 96 % [facility] [place] saturation in [facility] Ar[facility] blood Center by Pulse oximetry Heart rate 83 /min 83 /min [facility] Diastolic blood 71 mm[Hg] 71 mm[Hg] [facility] Systolic blood 125 mm[Hg] 125 mm[Hg] [facility] Body temperature 37.791194 Kaylie 37.718573 Kaylie [facility] Respiratory rate 16 /min 16 /min [facility] Oxygen 94 % 94 % [facility] [place] saturation in [facility] Ar[facility] Center by Pulse oximetry Heart rate 92 /min 92 /min [facility] Diastolic blood 72 mm[Hg] 72 mm[Hg] [facility] Systolic blood 142 mm[Hg] 142 mm[Hg] [facility] Body weight 90.127731 kg 90.760859 kg [facility] [place] Body temperature 37.693058 Kaylie 37.700978 Kaylie [facility] Respiratory rate 18 /min 18 /min [facility] Oxygen 92 % 92 % [place] saturation in [facility] Ar[facility] blood [facility] by Pulse oximetry Heart rate 96 /min 96 /min [facility] Body height 177.103200 cm 177.322129 cm [facility] Diastolic blood 70 mm[Hg] 70 mm[Hg] [facility] Center Systolic blood 122 mm[Hg] 122 mm[Hg] [facility] Body mass index 28.6 kg/m2 28.6 kg/m2 [facility] (BMI) [Ratio] [facility] Body temperature 36.675378 Kaylie 36.726298 Kaylie [facility] Respiratory rate 17 /min 17 /min [facility] Oxygen 98 % 98 % [place] saturation in [facility] by Pulse oximetry Heart rate 75 /min 75 /min [facility] Diastolic blood 65 mm[Hg] 65 mm[Hg] [facility] Systolic blood 133 mm[Hg] 133 mm[Hg] [facility] Body temperature 36.543421 Kaylie 36.415878 Kaylie [facility] Respiratory rate 18 /min 18 /min [facility] Oxygen 98 % 98 % [place] saturation in [facility] Ar[facility] blood [facility] by Pulse oximetry Heart rate 90 /min 90 /min [facility] Diastolic blood 72 mm[Hg] 72 mm[Hg] [facility] Systolic blood 127 mm[Hg] 127 mm[Hg] [facility] Body weight 75.592761 kg 75.821732 [facility] Body temperature 36.649671 Kaylie 36.974831 Kaylie [facility] Respiratory rate 19 /min 19 /min [facility] Oxygen 98 % 98 % [place] saturation in [facility] Ar[facility] blood [facility] by Pulse oximetry Heart rate 88 /min 88 /min [facility] Body height 170.345829 cm 170.430377 cm [facility] Diastolic blood 82 mm[Hg] 82 mm[Hg] [facility] Center Systolic blood 140 mm[Hg] 140 mm[Hg] [facility] Body mass index 26.1 kg/m2 26.1 kg/m2 [facility] (BMI) [Ratio] [facility] Body temperature 35.291454 Kaylie 35.816785 Kaylie [facility] Respiratory rate 19 /min 19 /min [facility] Oxygen 96 % 96 % [facility] [place] saturation in [facility] Ar[facility] blood Center by Pulse oximetry Heart rate 89 /min 89 /min [facility] Diastolic blood 75 mm[Hg] 75 mm[Hg] [facility] Systolic blood 102 mm[Hg] 102 mm[Hg] [facility] Body temperature 36.959994 Kaylie 36.353819 Kaylie [facility] Respiratory rate 18 /min 18 /min [facility] Oxygen 98 % 98 % [facility] [place] saturation in [facility] Ar[facility] blood Center by Pulse oximetry Heart rate 76 /min 76 /min [facility] Diastolic blood 76 mm[Hg] 76 mm[Hg] [facility] Systolic blood 112 mm[Hg] 112 mm[Hg] [facility] Body temperature 36.325008 Kaylie 36.883480 Kaylie [facility] Respiratory rate 18 /min 18 /min [facility] Oxygen 98 % 98 % [facility] [place] saturation in [facility] Arter[facility] blood Center by Pulse oximetry Heart rate 76 /min 76 /min [facility] Diastolic blood 76 mm[Hg] 76 mm[Hg] [facility] Systolic blood 112 mm[Hg] 112 mm[Hg] [facility] Body temperature 37.040698 Kaylie 37.317367 Kaylie [facility] Respiratory rate 18 /min 18 /min [facility] Oxygen 100 % 100 % [facility] [place] saturation in [facility] Ar[facility] blood Center by Pulse oximetry Heart rate 88 /min 88 /min [facility] Diastolic blood 78 mm[Hg] 78 mm[Hg] [facility] Center Systolic blood 130 mm[Hg] 130 mm[Hg] [facility] Body temperature 36.494536 Kaylie 36.566376 Kaylie [facility] Respiratory rate 17 /min 17 /min [facility] Oxygen 100 % 100 % [facility] [place] saturation in [facility] Ar[facility] blood Center by Pulse oximetry Heart rate 81 /min 81 /min [facility] Diastolic blood 71 mm[Hg] 71 mm[Hg] [facility] Systolic blood 117 mm[Hg] 117 mm[Hg] [facility] Body weight 100.699845 kg 100.948175 kg [facility] Body temperature 36.944953 Kaylie 36.449668 Kaylie [facility] Respiratory rate 18 /min 18 /min [facility] Oxygen 94 % 94 % [facility] [place] saturation in [facility] Ar[facility] blood Center by Pulse oximetry Heart rate 97 /min 97 /min [facility] Body height 177.862281 cm 177.289352 cm [facility] Diastolic blood 72 mm[Hg] 72 mm[Hg] [facility] Center Systolic blood 118 mm[Hg] 118 mm[Hg] [facility] [place] Body mass index 31.6 kg/m2 31.6 kg/m2 [facility] (BMI) [Ratio] [facility] Body temperature 36.375961 Kaylie 36.245504 Kaylie [facility] Respiratory rate 17 /min 17 /min [facility] Oxygen 95 % 95 % [facility] [place] saturation in [facility] Ar[facility] blood Center by Pulse oximetry Heart rate 94 /min 94 /min [facility] Diastolic blood 89 mm[Hg] 89 mm[Hg] [facility] Systolic blood 146 mm[Hg] 146 mm[Hg] [facility] Body temperature 36.496767 Kaylie 36.435874 Kaylie [facility] Respiratory rate 18 /min 18 /min [facility] Oxygen 97 % 97 % [facility] [place] saturation in [facility] Arter[facility] blood Center by Pulse oximetry Heart rate 94 /min 94 /min [facility] Diastolic blood 85 mm[Hg] 85 mm[Hg] [facility] Systolic blood 157 mm[Hg] 157 mm[Hg] [facility] Oxygen 98 % 98 % [facility] [place] saturation in [facility] Ar[facility] blood Center by Pulse oximetry Heart rate 84 /min 84 /min [facility] Body height 175.073162 cm 175.275159 cm [facility] Diastolic blood 84 mm[Hg] 84 mm[Hg] [facility] Center Systolic blood 142 mm[Hg] 142 mm[Hg] [facility] Body mass index 25.6 kg/m2 25.6 kg/m2 [facility] (BMI) [Ratio] [facility] Body weight 78.643902 kg 78.666486 kg [facility] Body temperature 36.004309 Kaylie 36.869988 Kaylie [facility] Respiratory rate 19 /min 19 /min [facility] Body temperature 36.416485 Kaylie 36.885972 Kaylie [facility] Respiratory rate 18 /min 18 /min [facility] Oxygen 96 % 96 % [facility] [place] saturation in [facility] Ar[facility] blood [facility] by Pulse oximetry Heart rate 95 /min 95 /min [facility] Diastolic blood 80 mm[Hg] 80 mm[Hg] [facility] Systolic blood 182 mm[Hg] 182 mm[Hg] [facility] Body temperature 36.787571 Kaylie 36.128301 Kaylie [facility] Respiratory rate 18 /min 18 /min [facility] Oxygen 96 % 96 % [facility] [place] saturation in [facility] Ar[facility] blood Center by Pulse oximetry Heart rate 92 /min 92 /min [facility] Diastolic blood 89 mm[Hg] 89 mm[Hg] [facility] Systolic blood 139 mm[Hg] 139 mm[Hg] [facility] Body temperature 37.886034 Kaylie 37.767243 Kaylie [facility] Respiratory rate 18 /min 18 /min [facility] Oxygen 98 % 98 % [place] saturation in [facility] Arter[facility] blood Center by Pulse oximetry Heart rate 90 /min 90 /min [facility] Diastolic blood 80 mm[Hg] 80 mm[Hg] [facility] Systolic blood 138 mm[Hg] 138 mm[Hg] [facility] Body temperature 37.978362 Kaylie 37.092711 Kaylie [facility] Respiratory rate 18 /min 18 /min [facility] Oxygen 92 % 92 % [facility] [place] saturation in [facility] Arter[facility] blood Center by Pulse oximetry Heart rate 87 /min 87 /min [facility] Diastolic blood 66 mm[Hg] 66 mm[Hg] [facility] Systolic blood 119 mm[Hg] 119 mm[Hg] [facility] Body temperature 36.509369 Kaylie 36.896693 Kaylie [facility] Respiratory rate 20 /min 20 /min [facility] Heart rate 94 /min 94 /min [facility] Diastolic blood 73 mm[Hg] 73 mm[Hg] [facility] Center Systolic blood 119 mm[Hg] 119 mm[Hg] [facility] Body weight 88.557042 kg 88.792973 kg [facility] Body temperature 37.960411 Kaylie 37.365906 Kaylie [facility] Respiratory rate 18 /min 18 /min [facility] Oxygen 96 % 96 % [place] saturation in [facility] Arter[facility] blood Center by Pulse oximetry Heart rate 90 /min 90 /min [facility] Body height 175.281798 cm 175.597151 cm [facility] Diastolic blood 72 mm[Hg] 72 mm[Hg] [facility] Systolic blood 135 mm[Hg] 135 mm[Hg] [facility] Body mass index 28.7 kg/m2 28.7 kg/m2 [facility] (BMI) [Ratio] [facility] Body weight 104.049913 kg 104.744622 kg [facility] Body temperature 37.212206 Kaylie 37.866363 Kaylie [facility] Respiratory rate 20 /min 20 /min [facility] Oxygen 93 % 93 % [place] saturation in [facility] Ar[facility] blood [facility] by Pulse oximetry Heart rate 93 /min 93 /min [facility] Body height 177.846147 cm 177.974243 cm [facility] Diastolic blood 73 mm[Hg] 73 mm[Hg] [facility] Systolic blood 125 mm[Hg] 125 mm[Hg] [facility] Body mass index 33.0 kg/m2 33.0 kg/m2 [facility] (BMI) [Ratio] [facility] Body temperature 36.222415 Kaylie 36.896970 Kaylie [facility] Respiratory rate 18 /min 18 /min [facility] Oxygen 99 % 99 % [place] saturation in [facility] Ar[facility] blood Center by Pulse oximetry Heart rate 89 /min 89 /min [facility] Diastolic blood 75 mm[Hg] 75 mm[Hg] [facility] Systolic blood 132 mm[Hg] 132 mm[Hg] [facility] Body temperature 36.698361 Kaylie 36.383725 Kaylie [facility] Respiratory rate 18 /min 18 /min [facility] Oxygen 99 % 99 % [place] saturation in [facility] Ar[facility] blood Center by Pulse oximetry Heart rate 78 /min 78 /min [facility] Diastolic blood 82 mm[Hg] 82 mm[Hg] [facility] Systolic blood 133 mm[Hg] 133 mm[Hg] [facility] Body weight 104.396929 kg 104.976840 kg [facility] Body temperature 36.115495 Kaylie 36.640725 Kaylie [facility] Respiratory rate 20 /min 20 /min [facility] Oxygen 98 % 98 % [place] saturation in [facility] Ar[facility] blood Center by Pulse oximetry Heart rate 98 /min 98 /min [facility] Body height 177.087284 cm 177.705035 cm [facility] Diastolic blood 74 mm[Hg] 74 mm[Hg] [facility] Systolic blood 118 mm[Hg] 118 mm[Hg] [facility] Body mass index 33.0 kg/m2 33.0 kg/m2 [facility] (BMI) [Ratio] [facility] Center Body temperature 36.493218 Kaylie 36.178997 Kaylie [facility] Respiratory rate 18 /min 18 /min [facility] Oxygen 96 % 96 % [place] saturation in [facility] Arter[facility] blood Center by Pulse oximetry Heart rate 89 /min 89 /min [facility] Diastolic blood 87 mm[Hg] 87 mm[Hg] [facility] Systolic blood 132 mm[Hg] 132 mm[Hg] [facility] Body temperature 37.467536 Kaylie 37.414549 Kaylie [facility] Respiratory rate 18 /min 18 /min [facility] Oxygen 99 % 99 % [place] saturation in [facility] Arter[facility] blood Center by Pulse oximetry Heart rate 84 /min 84 /min [facility] Diastolic blood 72 mm[Hg] 72 mm[Hg] [facility] Systolic blood 117 mm[Hg] 117 mm[Hg] [facility] Body temperature 36.703917 Kaylie 36.942904 Kaylie [facility] Respiratory rate 18 /min 18 /min [facility] Oxygen 98 % 98 % [place] saturation in [facility] Ar[facility] blood Center by Pulse oximetry Heart rate 88 /min 88 /min [facility] Diastolic blood 95 mm[Hg] 95 mm[Hg] [facility] Center Systolic blood 135 mm[Hg] 135 mm[Hg] [facility] Body temperature 36.966364 Kaylie 36.791651 Kaylie [facility] Respiratory rate 18 /min 18 /min [facility] Oxygen 96 % 96 % [place] saturation in [facility] Ar[facility] blood Center by Pulse oximetry Heart rate 98 /min 98 /min [facility] Diastolic blood 96 mm[Hg] 96 mm[Hg] [facility] Center Systolic blood 138 mm[Hg] 138 mm[Hg] [facility] Body temperature 36.508262 Kaylie 36.307930 Kaylie [facility] Respiratory rate 18 /min 18 /min [facility] Oxygen 98 % 98 % [place] saturation in [facility] Ar[facility] blood Center by Pulse oximetry Heart rate 76 /min 76 /min [facility] Diastolic blood 76 mm[Hg] 76 mm[Hg] [facility] Center Systolic blood 132 mm[Hg] 132 mm[Hg] [facility] Body temperature 36.071055 Kaylie 36.603096 Kaylie [facility] Respiratory rate 18 /min 18 /min [facility] Oxygen 98 % 98 % [place] saturation in [facility] Ar[facility] blood Center by Pulse oximetry Heart rate 76 /min 76 /min [facility] Diastolic blood 78 mm[Hg] 78 mm[Hg] [facility] Center Systolic blood 112 mm[Hg] 112 mm[Hg] [facility] Heart rate 105 /min 105 /min [facility] Body height 177.734300 cm 177.408915 cm [facility] Diastolic blood 65 mm[Hg] 65 mm[Hg] [facility] Center Systolic blood 124 mm[Hg] 124 mm[Hg] [facility] Body mass index 33.0 kg/m2 33.0 kg/m2 [facility] (BMI) [Ratio] [facility] Body weight 104.669643 kg 104.721102 kg [facility] Body temperature 37.472359 Kaylie 37.634410 Kaylie [facility] Respiratory rate 20 /min 20 /min [facility] Oxygen 92 % 92 % [place] saturation in [facility] Ar[facility] blood Center by Pulse oximetry Body temperature 37.339958 Kaylie 37.818089 Kaylie [facility] Respiratory rate 18 /min 18 /min [facility] Oxygen 93 % 93 % [place] saturation in [facility] Ar[facility] blood Center by Pulse oximetry Heart rate 101 /min 101 /min [facility] Diastolic blood 68 mm[Hg] 68 mm[Hg] [facility] Systolic blood 108 mm[Hg] 108 mm[Hg] [facility] Body weight 79.122133 kg 79.510234 kg [facility] Body temperature 37.082275 Kaylie 37.436080 Kaylie [facility] Respiratory rate 18 /min 18 /min [facility] Oxygen 95 % 95 % [place] saturation in [facility] Ar[facility] blood Center by Pulse oximetry Heart rate 101 /min 101 /min [facility] Body height 175.819703 cm 175.408221 cm [facility] Diastolic blood 66 mm[Hg] 66 mm[Hg] [facility] Systolic blood 98 mm[Hg] 98 mm[Hg] [facility] Body mass index 25.8 kg/m2 25.8 kg/m2 [facility] (BMI) [Ratio] [facility] Body temperature 36.009542 Kaylie 36.944355 Kaylie [facility] Respiratory rate 18 /min 18 /min [facility] Oxygen 98 % 98 % [place] saturation in [facility] Ar[facility] blood Center by Pulse oximetry Heart rate 79 /min 79 /min [facility] Diastolic blood 69 mm[Hg] 69 mm[Hg] [facility] Systolic blood 103 mm[Hg] 103 mm[Hg] [facility] Body temperature 36.115190 Kaylie 36.590187 Kaylie [facility] Respiratory rate 18 /min 18 /min [facility] Oxygen 98 % 98 % [place] saturation in Medical Arterial blood Center by Pulse oximetry Heart rate 78 /min 78 /min [facility] Diastolic blood 76 mm[Hg] 76 mm[Hg] [facility] Center Systolic blood 122 mm[Hg] 122 mm[Hg] [facility] Body temperature 36.585105 Kaylie 36.052608 Kaylie [facility] Respiratory rate 19 /min 19 /min [facility] Oxygen 96 % 96 % [place] saturation in Medical Arter[facility] blood Center by Pulse oximetry Heart rate 86 /min 86 /min [facility] Diastolic blood 63 mm[Hg] 63 mm[Hg] [facility] Systolic blood 103 mm[Hg] 103 mm[Hg] [facility] Body temperature 36.800673 Kaylie 36.999914 Kaylie [facility] Respiratory rate 18 /min 18 /min [facility] Oxygen 98 % 98 % [place] saturation in Medical Arter[facility] blood Center by Pulse oximetry Heart rate 84 /min 84 /min [facility] Diastolic blood 67 mm[Hg] 67 mm[Hg] [facility] [place] Systolic blood 119 mm[Hg] 119 mm[Hg] [facility] Body temperature 37.593408 Kaylie 37.378317 Kaylie [facility] Respiratory rate 18 /min 18 /min [facility] Oxygen 98 % 98 % [place] saturation in Medical Arter[facility] blood Center by Pulse oximetry Heart rate 91 /min 91 /min [facility] Diastolic blood 60 mm[Hg] 60 mm[Hg] [facility] Systolic blood 103 mm[Hg] 103 mm[Hg] [facility] Body temperature 36.403447 Kaylie 36.731085 Kaylie [facility] Respiratory rate 18 /min 18 /min [facility] Oxygen 98 % 98 % [place] saturation in [facility] Ar[facility] blood Center by Pulse oximetry Heart rate 76 /min 76 /min [facility] Diastolic blood 76 mm[Hg] 76 mm[Hg] [facility] Systolic blood 124 mm[Hg] 124 mm[Hg] [facility] Body temperature 36.690254 Kaylie 36.436556 Kaylie [facility] Respiratory rate 18 /min 18 /min [facility] Oxygen 98 % 98 % [place] saturation in [facility] Arterial blood Center by Pulse oximetry Heart rate 76 /min 76 /min [facility] Diastolic blood 76 mm[Hg] 76 mm[Hg] [facility] Systolic blood 124 mm[Hg] 124 mm[Hg] [facility] Body weight 104.024988 kg 104.537720 kg [facility] Body temperature 36.672584 Kaylie 36.495259 Kaylie [facility] Respiratory rate 18 /min 18 /min [facility] Oxygen 96 % 96 % [place] saturation in Medical Arterial blood Center by Pulse oximetry Heart rate 90 /min 90 /min [facility] Body height 177.031513 cm 177.514228 cm [facility] Diastolic blood 76 mm[Hg] 76 mm[Hg] [facility] Systolic blood 116 mm[Hg] 116 mm[Hg] [facility] Body mass index 33.0 kg/m2 33.0 kg/m2 [facility] (BMI) [Ratio] [facility] Center Body temperature 36.242283 Kaylie 36.306365 Kaylie [facility] Respiratory rate 18 /min 18 /min [facility] Heart rate 85 /min 85 /min [facility] Diastolic blood 82 mm[Hg] 82 mm[Hg] [facility] Systolic blood 141 mm[Hg] 141 mm[Hg] [facility] Body temperature 36.498067 Kaylie 36.815792 Kaylie [facility] Respiratory rate 18 /min 18 /min [facility] Heart rate 84 /min 84 /min [facility] Diastolic blood 81 mm[Hg] 81 mm[Hg] [facility] Systolic blood 139 mm[Hg] 139 mm[Hg] [facility] Body weight 95.627947 kg 95.012177 kg [facility] Body temperature 36.417782 Kaylie 36.336851 Kaylie [facility] Respiratory rate 17 /min 17 /min [facility] Oxygen 99 % 99 % [place] saturation in Medical Arterial blood Center by Pulse oximetry Heart rate 86 /min 86 /min [facility] Body height 177.482267 cm 177.101132 cm [facility] Diastolic blood 87 mm[Hg] 87 mm[Hg] [facility] Systolic blood 137 mm[Hg] 137 mm[Hg] [facility] Body mass index 30.1 kg/m2 30.1 kg/m2 [facility] (BMI) [Ratio] [facility] Body temperature 37.699213 Kaylie 37.297953 Kaylie [facility] Respiratory rate 18 /min 18 /min [facility] Oxygen 94 % 94 % [place] saturation in Medical Arterial blood Center by Pulse oximetry Heart rate 103 /min 103 /min [facility] Diastolic blood 72 mm[Hg] 72 mm[Hg] [facility] Systolic blood 111 mm[Hg] 111 mm[Hg] [facility] Body temperature 36.733492 Kaylie 36.252014 Kaylie [facility] Respiratory rate 16 /min 16 /min [facility] Oxygen 96 % 96 % [place] saturation in Medical Arterial blood Center by Pulse oximetry Heart rate 97 /min 97 /min [facility] Diastolic blood 77 mm[Hg] 77 mm[Hg] [facility] Systolic blood 133 mm[Hg] 133 mm[Hg] [facility] Body temperature 36.521932 Kaylie 36.011131 Kaylie [facility] Respiratory rate 17 /min 17 /min [facility] Oxygen 94 % 94 % [place] saturation in Medical Arterial blood Center by Pulse oximetry Heart rate 92 /min 92 /min [facility] Diastolic blood 80 mm[Hg] 80 mm[Hg] [facility] Systolic blood 122 mm[Hg] 122 mm[Hg] [facility] Body weight 113.119960 kg 113.928463 kg [facility] Body temperature 36.310014 Kaylie 36.162797 Kaylie [facility] Respiratory rate 16 /min 16 /min [facility] Oxygen 94 % 94 % [place] saturation in Medical Arterial blood Center by Pulse oximetry Heart rate 90 /min 90 /min [facility] Body height 177.055375 cm 177.801620 cm [facility] Diastolic blood 64 mm[Hg] 64 mm[Hg] [facility] Systolic blood 128 mm[Hg] 128 mm[Hg] [facility] Body mass index 35.8 kg/m2 35.8 kg/m2 [facility] (BMI) [Ratio] [facility] Body temperature 36.723006 Kaylie 36.189239 Kaylie [facility] Respiratory rate 18 /min 18 /min [facility] Oxygen 95 % 95 % [place] saturation in Medical Arterial blood Center by Pulse oximetry Heart rate 76 /min 76 /min [facility] Diastolic blood 76 mm[Hg] 76 mm[Hg] [facility] Systolic blood 128 mm[Hg] 128 mm[Hg] [facility] Body temperature 36.319994 Kaylie 36.705439 Kaylie [facility] Respiratory rate 18 /min 18 /min [facility] Oxygen 97 % 97 % [place] saturation in Medical Arterial blood Center by Pulse oximetry Heart rate 78 /min 78 /min [facility] Diastolic blood 70 mm[Hg] 70 mm[Hg] [facility] Systolic blood 124 mm[Hg] 124 mm[Hg] [facility] Body weight 86.441157 kg 86.819279 [facility] Body temperature 36.832671 Kaylie 36.186299 Kaylie [facility] Respiratory rate 19 /min 19 /min [facility] Oxygen 97 % 97 % [place] saturation in Medical Arterial blood Center by Pulse oximetry Heart rate 74 /min 74 /min [facility] Body height 180.826823 cm 180.160256 cm [facility] Diastolic blood 68 mm[Hg] 68 mm[Hg] [facility] Center Systolic blood 128 mm[Hg] 128 mm[Hg] [facility] Body mass index 26.4 kg/m2 26.4 kg/m2 [facility] (BMI) [Ratio] [facility] Body temperature 36.297110 Kaylie 36.020439 Kaylie [facility] Respiratory rate 18 /min 18 /min [facility] Oxygen 98 % 98 % [place] saturation in Medical Arterial blood Center by Pulse oximetry Heart rate 91 /min 91 /min [facility] Diastolic blood 65 mm[Hg] 65 mm[Hg] [facility] Systolic blood 129 mm[Hg] 129 mm[Hg] [facility] Body temperature 36.599437 Kaylie 36.235573 Kaylie [facility] Respiratory rate 16 /min 16 /min [facility] Oxygen 98 % 98 % [place] saturation in Medical Arterial blood Center by Pulse oximetry Heart rate 82 /min 82 /min [facility] Diastolic blood 64 mm[Hg] 64 mm[Hg] [facility] [place] Systolic blood 123 mm[Hg] 123 mm[Hg] [facility] Body temperature 36.614985 Kaylie 36.732459 Kaylie [facility] Respiratory rate 14 /min 14 /min [facility] Oxygen 95 % 95 % [place] saturation in Medical Arterial blood Center by Pulse oximetry Heart rate 61 /min 61 /min [facility] Diastolic blood 74 mm[Hg] 74 mm[Hg] [facility] [place] Systolic blood 124 mm[Hg] 124 mm[Hg] [facility] Body temperature 37.611638 Kaylie 37.120802 Kaylie [facility] Respiratory rate 16 /min 16 /min [facility] Oxygen 99 % 99 % [place] saturation in Medical Arterial blood Center by Pulse oximetry Heart rate 89 /min 89 /min [facility] Diastolic blood 76 mm[Hg] 76 mm[Hg] [facility] [place] Systolic blood 125 mm[Hg] 125 mm[Hg] [facility] Body temperature 37.248352 Kaylie 37.403371 Kaylie [facility] Respiratory rate 14 /min 14 /min [facility] Oxygen 99 % 99 % [place] saturation in Medical Arterial blood Center by Pulse oximetry Heart rate 91 /min 91 /min [facility] Diastolic blood 80 mm[Hg] 80 mm[Hg] [facility] [place] Systolic blood 120 mm[Hg] 120 mm[Hg] [facility] Body temperature 36.116289 Kaylie 36.877811 Kaylie [facility] Respiratory rate 18 /min 18 /min [facility] Oxygen 99 % 99 % [place] saturation in Medical Arterial blood Center by Pulse oximetry Heart rate 93 /min 93 /min [facility] Diastolic blood 78 mm[Hg] 78 mm[Hg] [facility] Center Systolic blood 115 mm[Hg] 115 mm[Hg] [facility] [place] Body temperature 36.010128 Kaylie 36.951383 Kaylie [facility] Respiratory rate 18 /min 18 /min [facility] Oxygen 95 % 95 % [place] saturation in Medical Arterial blood Center by Pulse oximetry Heart rate 83 /min 83 /min [facility] Diastolic blood 69 mm[Hg] 69 mm[Hg] [facility] [place] Systolic blood 102 mm[Hg] 102 mm[Hg] [facility] [place] Body temperature 37.920416 Kaylie 37.049343 Kaylie [facility] Respiratory rate 18 /min 18 /min [facility] Oxygen 98 % 98 % [place] saturation in Medical Arterial blood Center by Pulse oximetry Heart rate 91 /min 91 /min [facility] Diastolic blood 65 mm[Hg] 65 mm[Hg] [facility] [place] Systolic blood 101 mm[Hg] 101 mm[Hg] [facility] Body temperature 37.580311 Kaylie 37.443232 Kaylie [facility] Respiratory rate 18 /min 18 /min [facility] Oxygen 96 % 96 % [place] saturation in Medical Arterial blood Center by Pulse oximetry Heart rate 94 /min 94 /min [facility] Diastolic blood 87 mm[Hg] 87 mm[Hg] [facility] Systolic blood 156 mm[Hg] 156 mm[Hg] [facility] Body temperature 36.959706 Kaylie 36.490592 Kaylie [facility] Respiratory rate 17 /min 17 /min [facility] Oxygen 96 % 96 % [place] saturation in Medical Arterial blood Center by Pulse oximetry Heart rate 95 /min 95 /min [facility] Diastolic blood 91 mm[Hg] 91 mm[Hg] [facility] Systolic blood 149 mm[Hg] 149 mm[Hg] [facility] Body temperature 36.931949 Kaylie 36.314649 Kaylie [facility] Respiratory rate 17 /min 17 /min [facility] Oxygen 96 % 96 % [place] saturation in Medical Arterial blood Center by Pulse oximetry Heart rate 92 /min 92 /min [facility] Diastolic blood 86 mm[Hg] 86 mm[Hg] [facility] Center Systolic blood 157 mm[Hg] 157 mm[Hg] [facility] [place] Body temperature 36.233101 Kaylie 36.036136 Kaylie [facility] Respiratory rate 19 /min 19 /min [facility] Oxygen 99 % 99 % [place] saturation in Medical Arterial blood Center by Pulse oximetry Heart rate 100 /min 100 /min [facility] Diastolic blood 91 mm[Hg] 91 mm[Hg] [facility] Center Systolic blood 160 mm[Hg] 160 mm[Hg] [facility] [place] Body temperature 36.025650 Kaylie 36.809541 Kaylie [facility] Respiratory rate 22 /min 22 /min [facility] Oxygen 95 % 95 % [place] saturation in Medical Arterial blood Center by Pulse oximetry Heart rate 82 /min 82 /min [facility] Diastolic blood 91 mm[Hg] 91 mm[Hg] [facility] [place] Systolic blood 143 mm[Hg] 143 mm[Hg] [facility] Body temperature 37.747482 Kaylie 37.943395 Kaylie [facility] Respiratory rate 20 /min 20 /min [facility] Oxygen 95 % 95 % [place] saturation in Medical Arterial blood Center by Pulse oximetry Heart rate 111 /min 111 /min [facility] Diastolic blood 89 mm[Hg] 89 mm[Hg] [facility] Systolic blood 128 mm[Hg] 128 mm[Hg] [facility] [place] Respiratory rate 20 /min 20 /min [facility] Oxygen 95 % 95 % [place] saturation in Medical Arterial blood Center by Pulse oximetry Heart rate 113 /min 113 /min [facility] Body height 177.201048 cm 177.459505 cm [facility] Diastolic blood 68 mm[Hg] 68 mm[Hg] [facility] Center Systolic blood 133 mm[Hg] 133 mm[Hg] [facility] Body mass index 31.6 kg/m2 31.6 kg/m2 [facility] (BMI) [Ratio] [facility] Center Body weight 100.755950 kg 100.676885 kg [facility]asured [facility] Body temperature 37.092382 Kaylie 37.973098 Kaylie [facility] Body temperature 36.897403 Kaylie 36.957667 Kaylie [facility] Respiratory rate 18 /min 18 /min [facility] Oxygen 97 % 97 % [place] saturation in Medical Arterial blood Center by Pulse oximetry Heart rate 67 /min 67 /min [facility] Diastolic blood 78 mm[Hg] 78 mm[Hg] [facility] pressure [facility] Center Systolic blood 134 mm[Hg] 134 mm[Hg] [facility] Body weight 95.979152 kg 95.528082 kg [facility] Measured [facility] Center Body temperature 36.052874 Kaylie 36.286998 Kaylie [facility] Respiratory rate 20 /min 20 /min [facility] Oxygen 100 % 100 % [place] saturation in Medical Arterial blood Center by Pulse oximetry Heart rate 84 /min 84 /min [facility] Body height 177.414641 cm 177.599051 cm [facility] Diastolic blood 90 mm[Hg] 90 mm[Hg] [facility] Center Systolic blood 130 mm[Hg] 130 mm[Hg] [facility] Body mass index 30.0 kg/m2 30.0 kg/m2 [facility] (BMI) [Ratio] [facility] Body temperature 36.782370 Kaylie 36.954141 Kaylie [facility] Respiratory rate 18 /min 18 /min [facility] Oxygen 95 % 95 % [place] saturation in Medical Arterial blood Center by Pulse oximetry Heart rate 73 /min 73 /min [facility] Diastolic blood 71 mm[Hg] 71 mm[Hg] [facility] Center Systolic blood 139 mm[Hg] 139 mm[Hg] [facility] Body weight 100.893333 kg 100.018027 kg [facility] Body temperature 36.839999 Kaylie 36.398257 Kaylie [facility] Respiratory rate 18 /min 18 /min [facility] Oxygen 92 % 92 % [place] saturation in Medical Arterial blood Center by Pulse oximetry Heart rate 102 /min 102 /min [facility] Body height 177.436126 cm 177.936504 cm [facility] Diastolic blood 56 mm[Hg] 56 mm[Hg] [facility] Systolic blood 109 mm[Hg] 109 mm[Hg] [facility] Body mass index 31.6 kg/m2 31.6 kg/m2 [facility] (BMI) [Ratio] [facility] Body temperature 36.073299 Kaylie 36.539555 Kaylie [facility] Respiratory rate 18 /min 18 /min [facility] Oxygen 98 % 98 % [place] saturation in Medical Arterial blood Center by Pulse oximetry Heart rate 88 /min 88 /min [facility] Diastolic blood 78 mm[Hg] 78 mm[Hg] [facility] Systolic blood 148 mm[Hg] 148 mm[Hg] [facility] Body temperature 36.641163 Kaylie 36.792785 Kaylie [facility] Respiratory rate 18 /min 18 /min [facility] Oxygen 98 % 98 % [place] saturation in Medical Arterial blood Center by Pulse oximetry Heart rate 98 /min 98 /min [facility] Diastolic blood 68 mm[Hg] 68 mm[Hg] [facility] Systolic blood 113 mm[Hg] 113 mm[Hg] [facility] Body temperature 37.194571 Kaylie 37.666780 Kaylie [facility] Respiratory rate 18 /min 18 /min [facility] Oxygen 95 % 95 % [place] saturation in Medical Arterial blood Center by Pulse oximetry Heart rate 84 /min 84 /min [facility] Diastolic blood 82 mm[Hg] 82 mm[Hg] [facility] Systolic blood 131 mm[Hg] 131 mm[Hg] [facility] Body temperature 37.203766 Kaylie 37.697945 Kaylie [facility] Respiratory rate 18 /min 18 /min [facility] Oxygen 94 % 94 % [place] saturation in Medical Arterial blood Center by Pulse oximetry Heart rate 88 /min 88 /min [facility] Diastolic blood 91 mm[Hg] 91 mm[Hg] [facility] Systolic blood 134 mm[Hg] 134 mm[Hg] [facility] Body weight 102.034976 kg 102.647840 kg [facility] Respiratory rate 18 /min 18 /min [facility] Oxygen 93 % 93 % [place] saturation in Medical Arterial blood Center by Pulse oximetry Heart rate 98 /min 98 /min [facility] Body height 182.055662 cm 182.350935 cm [facility] Diastolic blood 80 mm[Hg] 80 mm[Hg] [facility] Systolic blood 178 mm[Hg] 178 mm[Hg] [facility] Body mass index 30.5 kg/m2 30.5 kg/m2 [facility] (BMI) [Ratio] [facility] Center Body temperature 36.925093 Kaylie 36.709483 Kaylie [facility] Respiratory rate 18 /min 18 /min [facility] Oxygen 95 % 95 % [place] saturation in Medical Arterial blood Center by Pulse oximetry Heart rate 96 /min 96 /min [facility] Diastolic blood 89 mm[Hg] 89 mm[Hg] [facility] Systolic blood 114 mm[Hg] 114 mm[Hg] [facility] Body temperature 36.360098 Kaylie 36.922312 Kaylie [facility] Respiratory rate 17 /min 17 /min [facility] Oxygen 96 % 96 % [place] saturation in Medical Arterial blood Center by Pulse oximetry Heart rate 98 /min 98 /min [facility] Diastolic blood 68 mm[Hg] 68 mm[Hg] [facility] Systolic blood 128 mm[Hg] 128 mm[Hg] [facility] Oxygen 97 % 97 % [place] saturation in Medical Arterial blood Center by Pulse oximetry Heart rate 116 /min 116 /min [facility] Diastolic blood 61 mm[Hg] 61 mm[Hg] [facility] Systolic blood 117 mm[Hg] 117 mm[Hg] [facility] Respiratory rate 18 /min 18 /min [facility] Body temperature 36.640158 Kaylie 36.018851 Kaylie [facility] Body temperature 36.680666 Kaylie 36.111442 Kaylie [facility] Respiratory rate 18 /min 18 /min [facility] Oxygen 97 % 97 % [place] saturation in Medical Arterial blood Center by Pulse oximetry Heart rate 76 /min 76 /min [facility] Diastolic blood 76 mm[Hg] 76 mm[Hg] [facility] Center Systolic blood 138 mm[Hg] 138 mm[Hg] [facility] Body temperature 36.459917 Kaylie 36.741947 Kaylie [facility] Respiratory rate 18 /min 18 /min [facility] Oxygen 98 % 98 % [place] saturation in Medical Arterial blood Center by Pulse oximetry Heart rate 85 /min 85 /min [facility] Diastolic blood 95 mm[Hg] 95 mm[Hg] [facility] pressure [facility] Center Systolic blood 154 mm[Hg] 154 mm[Hg] [facility] Body weight 86.714958 kg 86.755395 [facility] Body temperature 36.127976 Kaylie 36.157903 Kaylie [facility] Respiratory rate 20 /min 20 /min [facility] Oxygen 95 % 95 % [place] saturation in Medical Arterial blood Center by Pulse oximetry Heart rate 76 /min 76 /min [facility] Body height 170.322684 cm 170.906098 cm [facility] Diastolic blood 74 mm[Hg] 74 mm[Hg] [facility] Systolic blood 120 mm[Hg] 120 mm[Hg] [facility] Body mass index 29.7 kg/m2 29.7 kg/m2 [facility] (BMI) [Ratio] [facility] Body temperature 36.000438 Kaylie 36.727925 Kaylie [facility] Respiratory rate 16 /min 16 /min [facility] Oxygen 95 % 95 % [place] saturation in Medical Arterial blood Center by Pulse oximetry Heart rate 92 /min 92 /min [facility] Diastolic blood 68 mm[Hg] 68 mm[Hg] [facility] Systolic blood 112 mm[Hg] 112 mm[Hg] [facility] Body temperature 37.923314 Kaylie 37.133996 Kaylie [facility] Respiratory rate 18 /min 18 /min [facility] Oxygen 95 % 95 % [place] saturation in Medical Arterial blood Center by Pulse oximetry Heart rate 88 /min 88 /min [facility] Diastolic blood 57 mm[Hg] 57 mm[Hg] [facility] Center Systolic blood 107 mm[Hg] 107 mm[Hg] [facility] Body weight 120.936982 kg 120.827650 kg [facility] Body temperature 36.217275 Kaylie 36.055935 Kaylie [facility] Respiratory rate 18 /min 18 /min [facility] Oxygen 98 % 98 % [place] saturation in Medical Arterial blood Center by Pulse oximetry Heart rate 84 /min 84 /min [facility] Body height 182.011372 cm 182.744391 cm [facility] [place] Diastolic blood 78 mm[Hg] 78 mm[Hg] [facility] Systolic blood 148 mm[Hg] 148 mm[Hg] [facility] Body mass index 35.8 kg/m2 35.8 kg/m2 [facility] (BMI) [Ratio] [facility] Body temperature 37.041420 Kaylie 37.943429 Kaylie [facility] Respiratory rate 18 /min 18 /min [facility] Oxygen 95 % 95 % [place] saturation in Medical Arterial blood Center by Pulse oximetry Heart rate 94 /min 94 /min [facility] Diastolic blood 56 mm[Hg] 56 mm[Hg] [facility] Systolic blood 110 mm[Hg] 110 mm[Hg] [facility] Body temperature 38.375970 Kaylie 38.275804 Kaylie [facility] Respiratory rate 18 /min 18 /min [facility] Oxygen 97 % 97 % [place] saturation in Medical Arterial blood Center by Pulse oximetry Heart rate 98 /min 98 /min [facility] Diastolic blood 87 mm[Hg] 87 mm[Hg] [facility] pressure [facility] Center Systolic blood 140 mm[Hg] 140 mm[Hg] [facility] Body temperature 36.332533 Kaylie 36.597592 Kaylie [facility] Respiratory rate 16 /min 16 /min [facility] Oxygen 98 % 98 % [facility] saturation in Medical Arterial blood Center by Pulse oximetry Heart rate 87 /min 87 /min [facility] Diastolic blood 84 mm[Hg] 84 mm[Hg] [facility] Systolic blood 138 mm[Hg] 138 mm[Hg] [facility] Body temperature 37.464131 Kaylie 37.575269 Kaylie [facility] Respiratory rate 18 /min 18 /min [facility] Oxygen 97 % 97 % [facility] saturation in Medical Arterial blood Center by Pulse oximetry Heart rate 88 /min 88 /min [facility] Diastolic blood 72 mm[Hg] 72 mm[Hg] [facility] Systolic blood 134 mm[Hg] 134 mm[Hg] [facility] Body temperature 36.174310 Kaylie 36.517519 Kaylie [facility] Respiratory rate 18 /min 18 /min [facility] Oxygen 98 % 98 % [facility] saturation in Medical Arterial blood Center by Pulse oximetry Heart rate 71 /min 71 /min [facility] Diastolic blood 68 mm[Hg] 68 mm[Hg] [facility] [place] Systolic blood 133 mm[Hg] 133 mm[Hg] [facility] Body temperature 35.205480 Kaylie 35.891470 Kaylie [facility] Respiratory rate 17 /min 17 /min [facility] Oxygen 95 % 95 % [facility] saturation in Medical Arterial blood Center by Pulse oximetry Heart rate 93 /min 93 /min [facility] Diastolic blood 105 mm[Hg] 105 mm[Hg] [facility] Systolic blood 180 mm[Hg] 180 mm[Hg] [facility] Body temperature 36.866752 Kaylie 36.697222 Kaylie [facility] Respiratory rate 20 /min 20 /min [facility] Oxygen 97 % 97 % [facility] saturation in Medical Arterial blood Center by Pulse oximetry Heart rate 89 /min 89 /min [facility] Diastolic blood 92 mm[Hg] 92 mm[Hg] [facility] Systolic blood 158 mm[Hg] 158 mm[Hg] [facility] Body temperature 36.192485 Kaylie 36.365625 Kaylie [facility] Respiratory rate 18 /min 18 /min [facility] Oxygen 96 % 96 % [facility] saturation in Medical Arterial blood Center by Pulse oximetry Heart rate 86 /min 86 /min [facility] Diastolic blood 87 mm[Hg] 87 mm[Hg] [facility] pressure Medical Center Systolic blood 163 mm[Hg] 163 mm[Hg] [facility] Body temperature 36.528174 Kaylie 36.868655 Kaylie [facility] Respiratory rate 20 /min 20 /min [facility] Oxygen 98 % 98 % [facility] saturation in Medical Arterial blood Center by Pulse oximetry Heart rate 89 /min 89 /min [facility] Diastolic blood 103 mm[Hg] 103 mm[Hg] [facility] pressure Medical Center Systolic blood 154 mm[Hg] 154 mm[Hg] [facility] Heart rate 91 /min 91 /min [facility] Diastolic blood 110 mm[Hg] 110 mm[Hg] [facility] pressure Medical Center Systolic blood 167 mm[Hg] 167 mm[Hg] [facility] Body temperature 36.178250 Kaylie 36.523647 Kaylie [facility] Respiratory rate 18 /min 18 /min [facility] Oxygen 98 % 98 % [facility] saturation in Medical Arterial blood Center by Pulse oximetry Body temperature 36.114460 Kaylie 36.723243 Kaylie [facility] Respiratory rate 20 /min 20 /min [facility] Oxygen 95 % 95 % [facility] saturation in Medical Arterial blood Center by Pulse oximetry Heart rate 96 /min 96 /min [facility] Diastolic blood 146 mm[Hg] 146 mm[Hg] [facility] Systolic blood 211 mm[Hg] 211 mm[Hg] [facility] Body temperature 36.471102 Kaylie 36.967125 Kaylie [facility] Respiratory rate 18 /min 18 /min [facility] Oxygen 97 % 97 % [facility] [place] saturation in Medical Arterial blood Center by Pulse oximetry Heart rate 79 /min 79 /min [facility] Diastolic blood 106 mm[Hg] 106 mm[Hg] [facility] pressure Medical Center Systolic blood 179 mm[Hg] 179 mm[Hg] [facility] Body temperature 37.429310 Kaylie 37.746218 Kaylie [facility] Respiratory rate 18 /min 18 /min [facility] Oxygen 96 % 96 % [facility] [place] saturation in Medical Arterial blood Center by Pulse oximetry Heart rate 81 /min 81 /min [facility] Diastolic blood 82 mm[Hg] 82 mm[Hg] [facility] [place] Systolic blood 151 mm[Hg] 151 mm[Hg] [facility] Body temperature 36.703339 Kaylie 36.528754 Kaylie [facility] Respiratory rate 18 /min 18 /min [facility] Heart rate 77 /min 77 /min [facility] Body temperature 37.869521 Kaylie 37.975314 Kaylie [facility] Respiratory rate 18 /min 18 /min [facility] Oxygen 97 % 97 % [facility] [place] saturation in Medical Arterial blood Center by Pulse oximetry Heart rate 80 /min 80 /min [facility] Diastolic blood 89 mm[Hg] 89 mm[Hg] [facility] [place] Systolic blood 153 mm[Hg] 153 mm[Hg] [facility] Oxygen 97 % 97 % [facility] saturation in Medical Arterial blood Center by Pulse oximetry Diastolic blood 90 mm[Hg] 90 mm[Hg] [facility] Systolic blood 177 mm[Hg] 177 mm[Hg] [facility] Body temperature 36.344796 Kaylie 36.895639 Kaylie [facility] Respiratory rate 17 /min 17 /min [facility] Oxygen 95 % 95 % [facility] [place] saturation in Medical Arterial blood Center by Pulse oximetry Heart rate 67 /min 67 /min [facility] Diastolic blood 98 mm[Hg] 98 mm[Hg] [facility] Systolic blood 160 mm[Hg] 160 mm[Hg] [facility] Body weight 100.821415 kg 100.171232 kg [facility] Body temperature 36.181761 Kaylie 36.190951 Kaylie [facility] Respiratory rate 19 /min 19 /min [facility] Oxygen 98 % 98 % [facility] [place] saturation in Medical Arterial blood Center by Pulse oximetry Heart rate 92 /min 92 /min [facility] Body height 177.671880 cm 177.904781 cm [facility] Diastolic blood 103 mm[Hg] 103 mm[Hg] [facility] Systolic blood 166 mm[Hg] 166 mm[Hg] [facility] Body mass index 31.6 kg/m2 31.6 kg/m2 [facility] (BMI) [Ratio] Medical Center Body temperature 36.962030 Kaylie 36.584990 Kaylie [facility] Respiratory rate 18 /min 18 /min [facility] Oxygen 96 % 96 % [facility] [place] saturation in Medical Arterial blood Center by Pulse oximetry Heart rate 90 /min 90 /min [facility] Diastolic blood 74 mm[Hg] 74 mm[Hg] [facility] pressure Medical Center Systolic blood 145 mm[Hg] 145 mm[Hg] [facility] Body temperature 36.630687 Kaylie 36.979623 Kaylie [facility] Respiratory rate 18 /min 18 /min [facility] Oxygen 97 % 97 % [facility] [place] saturation in Medical Arterial blood Center by Pulse oximetry Heart rate 92 /min 92 /min [facility] Diastolic blood 78 mm[Hg] 78 mm[Hg] [facility] Systolic blood 147 mm[Hg] 147 mm[Hg] [facility] Body temperature 37.988321 Kaylie 37.801962 Kaylie [facility] Respiratory rate 19 /min 19 /min [facility] Oxygen 96 % 96 % [facility] [place] saturation in Medical Arterial blood Center by Pulse oximetry Heart rate 90 /min 90 /min [facility] Diastolic blood 74 mm[Hg] 74 mm[Hg] [facility] Systolic blood 132 mm[Hg] 132 mm[Hg] [facility] Body temperature 36.441953 Kaylie 36.870365 Kaylie [facility] Respiratory rate 18 /min 18 /min [facility] Oxygen 92 % 92 % [facility] [place] saturation in Medical Arterial blood Center by Pulse oximetry Heart rate 93 /min 93 /min [facility] Diastolic blood 78 mm[Hg] 78 mm[Hg] [facility] Systolic blood 130 mm[Hg] 130 mm[Hg] [facility] Body temperature 36.083025 Kaylie 36.866607 Kaylie [facility] Respiratory rate 17 /min 17 /min [facility] Oxygen 97 % 97 % [facility] [place] saturation in Medical Arterial blood Center by Pulse oximetry Heart rate 75 /min 75 /min [facility] Diastolic blood 65 mm[Hg] 65 mm[Hg] [facility] pressure Medical Center Systolic blood 139 mm[Hg] 139 mm[Hg] [facility] Body weight 104.671299 kg 104.365546 kg [facility] Body temperature 36.213519 Kaylie 36.098228 Kaylie [facility] Respiratory rate 17 /min 17 /min [facility] Oxygen 92 % 92 % [facility] [place] saturation in Medical Arterial blood Center by Pulse oximetry Heart rate 88 /min 88 /min [facility] Body height 177.726979 cm 177.158025 cm [facility] [place] Diastolic blood 74 mm[Hg] 74 mm[Hg] [facility] pressure Medical Center Systolic blood 126 mm[Hg] 126 mm[Hg] [facility] Body mass index 33.0 kg/m2 33.0 kg/m2 [facility] (BMI) [Ratio] Medical Center Body temperature 37.659693 Kaylie 37.799561 Kaylie [facility] Respiratory rate 18 /min 18 /min [facility] Oxygen 96 % 96 % [facility] [place] saturation in Medical Arterial blood Center by Pulse oximetry Heart rate 93 /min 93 /min [facility] Diastolic blood 78 mm[Hg] 78 mm[Hg] [facility] pressure Medical Center Systolic blood 138 mm[Hg] 138 mm[Hg] [facility] Body temperature 36.562676 Kaylie 36.557093 Kaylie [facility] Respiratory rate 18 /min 18 /min [facility] Oxygen 97 % 97 % [facility] [place] saturation in Medical Arterial blood Center by Pulse oximetry Heart rate 89 /min 89 /min [facility] Diastolic blood 86 mm[Hg] 86 mm[Hg] [facility] pressure Medical Center Systolic blood 142 mm[Hg] 142 mm[Hg] [facility] Body temperature 36.626472 Kaylie 36.196251 Kaylie [facility] Respiratory rate 18 /min 18 /min [facility] Oxygen 98 % 98 % [facility] [place] saturation in Medical Arterial blood Center by Pulse oximetry Heart rate 75 /min 75 /min [facility] Diastolic blood 65 mm[Hg] 65 mm[Hg] [facility] Systolic blood 131 mm[Hg] 131 mm[Hg] [facility] Body temperature 36.853036 Kaylie 36.697228 Kaylie [facility] Respiratory rate 17 /min 17 /min [facility] Oxygen 97 % 97 % [facility] [place] saturation in Medical Arterial blood Center by Pulse oximetry Heart rate 81 /min 81 /min [facility] Diastolic blood 73 mm[Hg] 73 mm[Hg] [facility] Systolic blood 139 mm[Hg] 139 mm[Hg] [facility] Body temperature 36.969377 Kaylie 36.014080 Kaylie [facility] Respiratory rate 18 /min 18 /min [facility] Oxygen 98 % 98 % [facility] [place] saturation in Medical Arterial blood Center by Pulse oximetry Heart rate 88 /min 88 /min [facility] Diastolic blood 72 mm[Hg] 72 mm[Hg] [facility] [place] Systolic blood 148 mm[Hg] 148 mm[Hg] [facility] Body temperature 36.895170 Kaylie 36.231273 Kaylie [facility] Respiratory rate 17 /min 17 /min [facility] Oxygen 95 % 95 % [facility] [place] saturation in Medical Arterial blood Center by Pulse oximetry Heart rate 84 /min 84 /min [facility] Diastolic blood 83 mm[Hg] 83 mm[Hg] [facility] [place] Systolic blood 138 mm[Hg] 138 mm[Hg] [facility] Body temperature 37.099936 Kaylie 37.913399 Kaylie [facility] Respiratory rate 18 /min 18 /min [facility] Oxygen 95 % 95 % [facility] [place] saturation in Medical Arterial blood Center by Pulse oximetry Heart rate 88 /min 88 /min [facility] Diastolic blood 78 mm[Hg] 78 mm[Hg] [facility] Systolic blood 143 mm[Hg] 143 mm[Hg] [facility] Body temperature 36.571605 Kaylie 36.887820 Kaylie [facility] Respiratory rate 18 /min 18 /min [facility] Oxygen 95 % 95 % [facility] [place] saturation in Medical Arterial blood Center by Pulse oximetry Heart rate 87 /min 87 /min [facility] Diastolic blood 98 mm[Hg] 98 mm[Hg] [facility] Systolic blood 122 mm[Hg] 122 mm[Hg] [facility] Body temperature 36.301884 Kaylie 36.010738 Kaylie [facility] Respiratory rate 16 /min 16 /min [facility] Oxygen 95 % 95 % [facility] [place] saturation in Medical Arterial blood Center by Pulse oximetry Heart rate 68 /min 68 /min [facility] Diastolic blood 60 mm[Hg] 60 mm[Hg] [facility] [place] Systolic blood 118 mm[Hg] 118 mm[Hg] [facility] Body temperature 37.881500 Kaylie 37.046385 Kaylie [facility] Respiratory rate 20 /min 20 /min [facility] Oxygen 97 % 97 % [facility] [place] saturation in Medical Arterial blood Center by Pulse oximetry Heart rate 96 /min 96 /min [facility] Diastolic blood 95 mm[Hg] 95 mm[Hg] [facility] [place] Systolic blood 167 mm[Hg] 167 mm[Hg] [facility] Body temperature 36.337678 Kaylie 36.777558 Kaylie [facility] Respiratory rate 20 /min 20 /min [facility] Oxygen 96 % 96 % [facility] [place] saturation in Medical Arterial blood Center by Pulse oximetry Heart rate 86 /min 86 /min [facility] Diastolic blood 99 mm[Hg] 99 mm[Hg] [facility] Systolic blood 168 mm[Hg] 168 mm[Hg] [facility] Body weight 109.683778 kg 109.800224 kg [facility] Body temperature 36.083496 Kaylie 36.378277 Kaylie [facility] Respiratory rate 20 /min 20 /min [facility] Oxygen 97 % 97 % [place] saturation in Medical Arterial blood Center by Pulse oximetry Heart rate 88 /min 88 /min [facility] Body height 175.480725 cm 175.038808 cm [facility] Diastolic blood 104 mm[Hg] 104 mm[Hg] [facility] Systolic blood 165 mm[Hg] 165 mm[Hg] [facility] Body mass index 35.5 kg/m2 35.5 kg/m2 [facility] (BMI) [Ratio] [facility] Center Body temperature 36.546093 Kaylie 36.226666 Kaylie [facility] Respiratory rate 20 /min 20 /min [facility] Oxygen 94 % 94 % [facility] [place] saturation in Medical Arterial blood Center by Pulse oximetry Heart rate 89 /min 89 /min [facility] Diastolic blood 81 mm[Hg] 81 mm[Hg] [facility] pressure [facility] Center Systolic blood 137 mm[Hg] 137 mm[Hg] [facility] Body temperature 36.706710 Kaylie 36.782409 Kaylie [facility] Respiratory rate 17 /min 17 /min [facility] Oxygen 98 % 98 % [facility] [place] saturation in Medical Arterial blood Center by Pulse oximetry Heart rate 74 /min 74 /min [facility] Diastolic blood 73 mm[Hg] 73 mm[Hg] [facility] Systolic blood 135 mm[Hg] 135 mm[Hg] [facility] Body temperature 37.952151 Kaylie 37.379646 Kaylie [facility] Respiratory rate 18 /min 18 /min [facility] Oxygen 99 % 99 % [facility] [place] saturation in Medical Arterial blood Center by Pulse oximetry Heart rate 93 /min 93 /min [facility] Diastolic blood 77 mm[Hg] 77 mm[Hg] [facility] Systolic blood 141 mm[Hg] 141 mm[Hg] [facility] Body temperature 37.077067 Kaylie 37.496089 Kaylie [facility] Respiratory rate 18 /min 18 /min [facility] Oxygen 99 % 99 % [facility] [place] saturation in Medical Arterial blood Center by Pulse oximetry Heart rate 73 /min 73 /min [facility] Diastolic blood 85 mm[Hg] 85 mm[Hg] [facility] Systolic blood 128 mm[Hg] 128 mm[Hg] [facility] Body temperature 36.390226 Kaylie 36.011460 Kaylie [facility] Respiratory rate 17 /min 17 /min [facility] Oxygen 99 % 99 % [facility] [place] saturation in Medical Arterial blood Center by Pulse oximetry Heart rate 85 /min 85 /min [facility] Diastolic blood 78 mm[Hg] 78 mm[Hg] [facility] pressure [facility] Center Systolic blood 132 mm[Hg] 132 mm[Hg] [facility] Body temperature 36.879512 Kaylie 36.151760 Kaylie [facility] Respiratory rate 18 /min 18 /min [facility] Oxygen 98 % 98 % [facility] [place] saturation in Medical Arterial blood Center by Pulse oximetry Heart rate 82 /min 82 /min [facility] Diastolic blood 83 mm[Hg] 83 mm[Hg] [facility] Systolic blood 125 mm[Hg] 125 mm[Hg] [facility] Body temperature 37.480535 Kaylie 37.944936 Kaylie [facility] Respiratory rate 18 /min 18 /min [facility] Oxygen 97 % 97 % [facility] [place] saturation in Medical Arterial blood Center by Pulse oximetry Heart rate 101 /min 101 /min [facility] Diastolic blood 77 mm[Hg] 77 mm[Hg] [facility] Systolic blood 137 mm[Hg] 137 mm[Hg] [facility] Heart rate 88 /min 88 /min [facility] Diastolic blood 78 mm[Hg] 78 mm[Hg] [facility] Systolic blood 144 mm[Hg] 144 mm[Hg] [facility] Body temperature 36.757551 Kaylie 36.461687 Kaylie [facility] Respiratory rate 18 /min 18 /min [facility] Oxygen 97 % 97 % [facility] [place] saturation in Medical Arterial blood Center by Pulse oximetry Body temperature 37.214471 Kaylie 37.747260 Kaylie [facility] Respiratory rate 18 /min 18 /min [facility] Oxygen 95 % 95 % [facility] [place] saturation in Medical Arterial blood Center by Pulse oximetry Heart rate 90 /min 90 /min [facility] Diastolic blood 92 mm[Hg] 92 mm[Hg] [facility] Systolic blood 153 mm[Hg] 153 mm[Hg] [facility] Body temperature 37.221417 Kaylie 37.471123 Kaylie [facility] Respiratory rate 18 /min 18 /min [facility] Oxygen 95 % 95 % [facility] [place] saturation in Medical Arterial blood Center by Pulse oximetry Heart rate 96 /min 96 /min [facility] Diastolic blood 75 mm[Hg] 75 mm[Hg] [facility] pressure Medical Center Systolic blood 127 mm[Hg] 127 mm[Hg] [facility] Body temperature 36.651874 Kaylie 36.987711 Kaylie [facility] Respiratory rate 18 /min 18 /min [facility] Oxygen 96 % 96 % [facility] [place] saturation in Medical Arterial blood Center by Pulse oximetry Heart rate 96 /min 96 /min [facility] Diastolic blood 98 mm[Hg] 98 mm[Hg] [facility] [place] Systolic blood 151 mm[Hg] 151 mm[Hg] [facility] Body temperature 36.459259 Kaylie 36.522450 Kaylie [facility] Respiratory rate 17 /min 17 /min [facility] Oxygen 96 % 96 % [facility] [place] saturation in Medical Arterial blood Center by Pulse oximetry Heart rate 94 /min 94 /min [facility] Diastolic blood 74 mm[Hg] 74 mm[Hg] [facility] [place] Systolic blood 138 mm[Hg] 138 mm[Hg] [facility] Respiratory rate 16 /min 16 /min [facility] Oxygen 98 % 98 % [facility] [place] saturation in Medical Arterial blood Center by Pulse oximetry Heart rate 91 /min 91 /min [facility] Diastolic blood 70 mm[Hg] 70 mm[Hg] [facility] Systolic blood 130 mm[Hg] 130 mm[Hg] [facility] Body temperature 36.326639 Kaylie 36.737664 Kaylie [facility] Respiratory rate 16 /min 16 /min [facility] Oxygen 97 % 97 % [facility] [place] saturation in Medical Arterial blood Center by Pulse oximetry Heart rate 91 /min 91 /min [facility] Diastolic blood 61 mm[Hg] 61 mm[Hg] [facility] Systolic blood 109 mm[Hg] 109 mm[Hg] [facility] Body temperature 36.446141 Kaylie 36.264945 Kaylie [facility] Respiratory rate 17 /min 17 /min [facility] Oxygen 95 % 95 % [facility] [place] saturation in Medical Arterial blood Center by Pulse oximetry Heart rate 96 /min 96 /min [facility] Diastolic blood 50 mm[Hg] 50 mm[Hg] [facility] pressure [facility] Center Systolic blood 110 mm[Hg] 110 mm[Hg] [facility] Body temperature 36.591526 Kaylie 36.232096 Kaylie [facility] Respiratory rate 18 /min 18 /min [facility] Oxygen 97 % 97 % [facility] [place] saturation in Medical Arterial blood Center by Pulse oximetry Heart rate 82 /min 82 /min [facility] Diastolic blood 70 mm[Hg] 70 mm[Hg] [facility] [place] Systolic blood 120 mm[Hg] 120 mm[Hg] [facility] Body temperature 36.060310 Kaylie 36.115079 Kaylie [facility] Respiratory rate 17 /min 17 /min [facility] Oxygen 98 % 98 % [facility] [place] saturation in Medical Arterial blood Center by Pulse oximetry Heart rate 76 /min 76 /min [facility] Diastolic blood 67 mm[Hg] 67 mm[Hg] [facility] [place] Systolic blood 154 mm[Hg] 154 mm[Hg] [facility] Body temperature 36.613495 Kaylie 36.866333 Kaylie [facility] Respiratory rate 18 /min 18 /min [facility] Heart rate 90 /min 90 /min [facility] Diastolic blood 71 mm[Hg] 71 mm[Hg] [facility] [place] Systolic blood 140 mm[Hg] 140 mm[Hg] [facility] Body temperature 36.295028 Kaylie 36.468694 Kaylie [facility] Respiratory rate 17 /min 17 /min [facility] Oxygen 95 % 95 % [facility] [place] saturation in Medical Arterial blood Center by Pulse oximetry Heart rate 90 /min 90 /min [facility] Diastolic blood 77 mm[Hg] 77 mm[Hg] [facility] Systolic blood 137 mm[Hg] 137 mm[Hg] [facility] Body temperature 36.028866 Kaylie 36.261476 Kaylie [facility] Respiratory rate 18 /min 18 /min [facility] Oxygen 98 % 98 % [facility] [place] saturation in Medical Arterial blood Center by Pulse oximetry Heart rate 76 /min 76 /min [facility] Diastolic blood 80 mm[Hg] 80 mm[Hg] [facility] Systolic blood 124 mm[Hg] 124 mm[Hg] [facility] Body temperature 36.108045 Kaylie 36.208786 Kaylie [facility] Respiratory rate 18 /min 18 /min [facility] Oxygen 99 % 99 % [facility] [place] saturation in Medical Arterial blood Center by Pulse oximetry Heart rate 90 /min 90 /min [facility] Diastolic blood 77 mm[Hg] 77 mm[Hg] [facility] [place] Systolic blood 149 mm[Hg] 149 mm[Hg] [facility] Body temperature 36.731937 Kaylie 36.882068 Kaylie [facility] Respiratory rate 19 /min 19 /min [facility] Oxygen 99 % 99 % [facility] [place] saturation in Medical Arterial blood Center by Pulse oximetry Heart rate 88 /min 88 /min [facility] Diastolic blood 66 mm[Hg] 66 mm[Hg] [facility] [place] Systolic blood 154 mm[Hg] 154 mm[Hg] [facility] Body temperature 36.131752 Kaylie 36.897964 Kaylie [facility] Respiratory rate 18 /min 18 /min [facility] Oxygen 96 % 96 % [facility] [place] saturation in Medical Arterial blood Center by Pulse oximetry Heart rate 93 /min 93 /min [facility] Diastolic blood 76 mm[Hg] 76 mm[Hg] [facility] [place] Systolic blood 144 mm[Hg] 144 mm[Hg] [facility] Body temperature 37.228054 Kaylie 37.362850 Kaylie [facility] Respiratory rate 19 /min 19 /min [facility] Oxygen 95 % 95 % [facility] [place] saturation in Medical Arterial blood Center by Pulse oximetry Heart rate 90 /min 90 /min [facility] Diastolic blood 59 mm[Hg] 59 mm[Hg] [facility] Systolic blood 133 mm[Hg] 133 mm[Hg] [facility] Body temperature 36.611630 Kaylie 36.696221 Kaylie [facility] Respiratory rate 18 /min 18 /min [facility] Oxygen 97 % 97 % [facility] [place] saturation in Medical Arterial blood Center by Pulse oximetry Heart rate 88 /min 88 /min [facility] Diastolic blood 67 mm[Hg] 67 mm[Hg] [facility] pressure Medical Center Systolic blood 148 mm[Hg] 148 mm[Hg] [facility] Body temperature 36.595378 Kaylie 36.147400 Kaylie [facility] Respiratory rate 20 /min 20 /min [facility] Oxygen 94 % 94 % [facility] saturation in Medical Arterial blood Center by Pulse oximetry Heart rate 88 /min 88 /min [facility] Diastolic blood 66 mm[Hg] 66 mm[Hg] [facility] pressure Medical Center Systolic blood 135 mm[Hg] 135 mm[Hg] [facility] Body temperature 37.403255 Kaylie 37.425545 Kaylie [facility] Respiratory rate 20 /min 20 /min [facility] Oxygen 94 % 94 % [place] saturation in Medical Arterial blood Center by Pulse oximetry Heart rate 84 /min 84 /min [facility] Diastolic blood 69 mm[Hg] 69 mm[Hg] [facility] pressure Medical Center Systolic blood 130 mm[Hg] 130 mm[Hg] [facility] Body weight 90.402602 kg 90.813713 kg [facility] Measured [facility] Body height 175.536838 cm 175.988911 cm [facility] Body mass index 29.5 kg/m2 29.5 kg/m2 [facility] (BMI) [Ratio] [facility] Center Body temperature 36.899200 Kaylie 36.324874 Kaylie [facility] Respiratory rate 17 /min 17 /min [facility] Oxygen 98 % 98 % [facility] [place] saturation in Medical Arterial blood Center by Pulse oximetry Heart rate 71 /min 71 /min [facility] Diastolic blood 76 mm[Hg] 76 mm[Hg] [facility] pressure Medical Center Systolic blood 136 mm[Hg] 136 mm[Hg] [facility] Body temperature 36.882347 Kaylie 36.031533 Kaylie [facility] Respiratory rate 18 /min 18 /min [facility] Oxygen 97 % 97 % [place] saturation in Medical Arterial blood Center by Pulse oximetry Heart rate 76 /min 76 /min [facility] Diastolic blood 76 mm[Hg] 76 mm[Hg] [facility] pressure Medical Center Systolic blood 124 mm[Hg] 124 mm[Hg] [facility] Body temperature 36.785159 Kaylie 36.068958 Kaylie [facility] Respiratory rate 19 /min 19 /min [facility] Oxygen 97 % 97 % [place] saturation in Medical Arterial blood Center by Pulse oximetry Heart rate 97 /min 97 /min [facility] Diastolic blood 73 mm[Hg] 73 mm[Hg] [facility] pressure Medical Center Systolic blood 118 mm[Hg] 118 mm[Hg] [facility] Body weight 104.916225 kg 104.896486 kg [facility] Body temperature 36.465326 Kaylie 36.237802 Kaylie [facility] Respiratory rate 17 /min 17 /min [facility] Oxygen 96 % 96 % [facility] [place] saturation in Medical Arterial blood Center by Pulse oximetry Heart rate 95 /min 95 /min [facility] Body height 177.586277 cm 177.985388 cm [facility] Diastolic blood 81 mm[Hg] 81 mm[Hg] [facility] pressure Medical Center Systolic blood 150 mm[Hg] 150 mm[Hg] [facility] Body mass index 33.0 kg/m2 33.0 kg/m2 [facility] (BMI) [Ratio] [facility] Center Body temperature 36.758361 Kaylie 36.189371 Kaylie [facility] Respiratory rate 18 /min 18 /min [facility] Oxygen 97 % 97 % [facility] [place] saturation in Medical Arterial blood Center by Pulse oximetry Heart rate 89 /min 89 /min [facility] Diastolic blood 75 mm[Hg] 75 mm[Hg] [facility] pressure [facility] Center Systolic blood 144 mm[Hg] 144 mm[Hg] [facility] Body temperature 36.784148 Kaylie 36.948252 Kaylie [facility] Respiratory rate 18 /min 18 /min [facility] Oxygen 97 % 97 % [facility] [place] saturation in Medical Arterial blood Center by Pulse oximetry Heart rate 71 /min 71 /min [facility] Diastolic blood 96 mm[Hg] 96 mm[Hg] [facility] Systolic blood 136 mm[Hg] 136 mm[Hg] [facility] Heart rate 84 /min 84 /min [facility] Diastolic blood 83 mm[Hg] 83 mm[Hg] [facility] pressure [facility] Center Systolic blood 132 mm[Hg] 132 mm[Hg] [facility] Respiratory rate 18 /min 18 /min [facility] Oxygen 97 % 97 % [place] saturation in Medical Arterial blood Center by Pulse oximetry Body temperature 36.085976 Kaylie 36.164629 Kaylie [facility] Respiratory rate 18 /min 18 /min [facility] Oxygen 97 % 97 % [facility] [place] saturation in Medical Arterial blood Center by Pulse oximetry Heart rate 82 /min 82 /min [facility] Diastolic blood 82 mm[Hg] 82 mm[Hg] [facility] pressure [facility] Center Systolic blood 138 mm[Hg] 138 mm[Hg] [facility] Body temperature 36.943623 Kaylie 36.366192 Kaylie [facility] Respiratory rate 18 /min 18 /min [facility] Oxygen 96 % 96 % [place] saturation in Medical Arterial blood Center by Pulse oximetry Heart rate 95 /min 95 /min [facility] Diastolic blood 84 mm[Hg] 84 mm[Hg] [facility] pressure [facility] Center Systolic blood 155 mm[Hg] 155 mm[Hg] [facility] Body temperature 36.433270 Kaylie 36.925739 Kaylie [facility] Respiratory rate 21 /min 21 /min [facility] Oxygen 98 % 98 % [place] saturation in Medical Arterial blood Center by Pulse oximetry Heart rate 97 /min 97 /min [facility] Diastolic blood 79 mm[Hg] 79 mm[Hg] [facility] Systolic blood 162 mm[Hg] 162 mm[Hg] [facility] Body weight 90.481414 kg 90.447775 kg [facility] Body temperature 36.026753 Kaylie 36.064316 Kaylie [facility] Respiratory rate 18 /min 18 /min [facility] Oxygen 96 % 96 % [facility] [place] saturation in Medical Arterial blood Center by Pulse oximetry Heart rate 92 /min 92 /min [facility] Body height 177.210371 cm 177.890565 cm [facility] Diastolic blood 85 mm[Hg] 85 mm[Hg] [facility] pressure Medical Center Systolic blood 141 mm[Hg] 141 mm[Hg] [facility] Body mass index 28.6 kg/m2 28.6 kg/m2 [facility] (BMI) [Ratio] [facility] Center Body temperature 36.823023 Kaylie 36.944721 Kaylie [facility] Respiratory rate 20 /min 20 /min [facility] Oxygen 94 % 94 % [place] saturation in Medical Arterial blood Center by Pulse oximetry Heart rate 96 /min 96 /min [facility] Diastolic blood 85 mm[Hg] 85 mm[Hg] [facility] pressure [facility] Center Systolic blood 125 mm[Hg] 125 mm[Hg] [facility] Body temperature 36.286013 Kaylie 36.931441 Kaylie [facility] Respiratory rate 19 /min 19 /min [facility] Oxygen 93 % 93 % [place] saturation in Medical Arterial blood Center by Pulse oximetry Heart rate 91 /min 91 /min [facility] Diastolic blood 74 mm[Hg] 74 mm[Hg] [facility] pressure [facility] Center Systolic blood 132 mm[Hg] 132 mm[Hg] [facility] Body weight 95.377550 kg 95.816129 kg [facility] Body temperature 36.394393 Kaylie 36.358934 Kaylie [facility] Respiratory rate 17 /min 17 /min [facility] Oxygen 95 % 95 % [place] saturation in Medical Arterial blood Center by Pulse oximetry Heart rate 86 /min 86 /min [facility] Body height 177.596598 cm 177.342813 cm [facility] Diastolic blood 72 mm[Hg] 72 mm[Hg] [facility] pressure Medical Center Systolic blood 123 mm[Hg] 123 mm[Hg] [facility] Body mass index 30.1 kg/m2 30.1 kg/m2 [facility] (BMI) [Ratio] [facility] Center Body temperature 36.940685 Kaylie 36.358235 Kaylie [facility] Respiratory rate 16 /min 16 /min [facility] Oxygen 93 % 93 % [place] saturation in Medical Arterial blood Center by Pulse oximetry Heart rate 103 /min 103 /min [facility] Diastolic blood 67 mm[Hg] 67 mm[Hg] [facility] pressure Medical Center Systolic blood 123 mm[Hg] 123 mm[Hg] [facility] Body temperature 36.153301 Kaylie 36.664572 Kaylie [facility] Respiratory rate 18 /min 18 /min [facility] Oxygen 98 % 98 % [place] saturation in Medical Arterial blood Center by Pulse oximetry Heart rate 76 /min 76 /min [facility] Diastolic blood 77 mm[Hg] 77 mm[Hg] [facility] Systolic blood 120 mm[Hg] 120 mm[Hg] [facility] Body temperature 36.440607 Kaylie 36.253690 Kaylie [facility] Respiratory rate 18 /min 18 /min [facility] Oxygen 98 % 98 % [place] saturation in Medical Arterial blood Center by Pulse oximetry Heart rate 76 /min 76 /min [facility] Diastolic blood 76 mm[Hg] 76 mm[Hg] [facility] Systolic blood 122 mm[Hg] 122 mm[Hg] [facility] [place] Body temperature 35.674049 Kaylie 35.495247 Kaylie [facility] Respiratory rate 17 /min 17 /min [facility] Oxygen 97 % 97 % [place] saturation in Medical Arterial blood Center by Pulse oximetry Heart rate 86 /min 86 /min [facility] Diastolic blood 69 mm[Hg] 69 mm[Hg] [facility] Systolic blood 121 mm[Hg] 121 mm[Hg] [facility] Body temperature 37.131923 Kaylie 37.442603 Kaylie [facility] Respiratory rate 16 /min 16 /min [facility] Oxygen 98 % 98 % [place] saturation in Medical Arterial blood Center by Pulse oximetry Heart rate 80 /min 80 /min [facility] Diastolic blood 65 mm[Hg] 65 mm[Hg] [facility] Systolic blood 116 mm[Hg] 116 mm[Hg] [facility] Respiratory rate 16 /min 16 /min [facility] Oxygen 97 % 97 % [place] saturation in Medical Arterial blood Center by Pulse oximetry Heart rate 84 /min 84 /min [facility] Diastolic blood 69 mm[Hg] 69 mm[Hg] [facility] Systolic blood 115 mm[Hg] 115 mm[Hg] [facility] Body temperature 37.889764 Kaylie 37.789752 Kaylie [facility] Oxygen 98 % 98 % [place] saturation in Medical Arterial blood Center by Pulse oximetry Heart rate 90 /min 90 /min [facility] Diastolic blood 72 mm[Hg] 72 mm[Hg] [facility] Systolic blood 106 mm[Hg] 106 mm[Hg] [facility] Body temperature 36.689445 Kaylie 36.981393 Kaylie [facility] Respiratory rate 19 /min 19 /min [facility] Oxygen 98 % 98 % [place] saturation in Medical Arterial blood Center by Pulse oximetry Heart rate 86 /min 86 /min [facility] Diastolic blood 55 mm[Hg] 55 mm[Hg] [facility] Systolic blood 91 mm[Hg] 91 mm[Hg] [facility] Body temperature 37.989285 Kaylie 37.703557 Kaylie [facility] Respiratory rate 18 /min 18 /min [facility] Oxygen 95 % 95 % [place] saturation in Medical Arterial blood Center by Pulse oximetry Heart rate 95 /min 95 /min [facility] Diastolic blood 79 mm[Hg] 79 mm[Hg] [facility] Systolic blood 122 mm[Hg] 122 mm[Hg] [facility] Body weight 105.057511 kg 105.586891 kg [facility] Body temperature 37.026398 Kaylie 37.422510 Kaylie [facility] Respiratory rate 20 /min 20 /min [facility] Oxygen 94 % 94 % [place] saturation in Medical Arterial blood Center by Pulse oximetry Heart rate 83 /min 83 /min [facility] Body height 175.950607 cm 175.569046 cm [facility] Diastolic blood 85 mm[Hg] 85 mm[Hg] [facility] Systolic blood 134 mm[Hg] 134 mm[Hg] [facility] Body mass index 34.2 kg/m2 34.2 kg/m2 [facility] (BMI) [Ratio] Medical Center Body weight 81.029811 kg 81.801263 kg [facility]asured [facility] Body temperature 36.854842 Kaylie 36.983158 Kaylie [facility] Respiratory rate 18 /min 18 /min [facility] Oxygen 96 % 96 % [place] saturation in Medical Arterial blood Center by Pulse oximetry Heart rate 86 /min 86 /min [facility] Body height 172.995493 cm 172.595227 cm [facility] Diastolic blood 85 mm[Hg] 85 mm[Hg] [facility] pressure Medical Center Systolic blood 138 mm[Hg] 138 mm[Hg] [facility] Body mass index 27.3 kg/m2 27.3 kg/m2 [facility] (BMI) [Ratio] [facility] Center Body temperature 36.603191 Kaylie 36.449558 Kaylie [facility] Respiratory rate 17 /min 17 /min [facility] Oxygen 98 % 98 % [place] saturation in Medical Arterial blood Center by Pulse oximetry Heart rate 81 /min 81 /min [facility] Diastolic blood 71 mm[Hg] 71 mm[Hg] [facility] Systolic blood 128 mm[Hg] 128 mm[Hg] [facility] Body temperature 36.916359 Kaylie 36.652306 Kaylie [facility] Respiratory rate 17 /min 17 /min [facility] Oxygen 95 % 95 % [place] saturation in Medical Arterial blood Center by Pulse oximetry Heart rate 101 /min 101 /min [facility] Diastolic blood 78 mm[Hg] 78 mm[Hg] [facility] Systolic blood 128 mm[Hg] 128 mm[Hg] [facility] Body temperature 41.017312 Kaylie 41.154702 Kaylie [facility] Respiratory rate 18 /min 18 /min [facility] Oxygen 92 % 92 % [place] saturation in Medical Arterial blood Center by Pulse oximetry Heart rate 117 /min 117 /min [facility] Diastolic blood 77 mm[Hg] 77 mm[Hg] [facility] Systolic blood 130 mm[Hg] 130 mm[Hg] [facility] Body temperature 37.303647 Kaylie 37.011420 Kaylie [facility] Respiratory rate 18 /min 18 /min [facility] Oxygen 98 % 98 % [place] saturation in Medical Arterial blood Center by Pulse oximetry Heart rate 89 /min 89 /min [facility] Diastolic blood 85 mm[Hg] 85 mm[Hg] [facility] [place] Systolic blood 142 mm[Hg] 142 mm[Hg] [facility] Body weight 110.683738 kg 110.501868 kg [facility] Body temperature 36.276047 Kaylie 36.993381 Kaylie [facility] Respiratory rate 18 /min 18 /min [facility] Oxygen 98 % 98 % [place] saturation in Medical Arterial blood Center by Pulse oximetry Heart rate 88 /min 88 /min [facility] Body height 182.973928 cm 182.567562 cm [facility] Diastolic blood 98 mm[Hg] 98 mm[Hg] [facility] Systolic blood 138 mm[Hg] 138 mm[Hg] [facility] Body mass index 32.8 kg/m2 32.8 kg/m2 [facility] (BMI) [Ratio] Medical Center Body temperature 36.236785 Kaylie 36.782965 Kaylie [facility] Respiratory rate 17 /min 17 /min [facility] Oxygen 95 % 95 % [place] saturation in Medical Arterial blood Center by Pulse oximetry Heart rate 96 /min 96 /min [facility] Diastolic blood 74 mm[Hg] 74 mm[Hg] [facility] Systolic blood 126 mm[Hg] 126 mm[Hg] [facility] Body temperature 36.174177 Kaylie 36.707372 Kaylie [facility] Respiratory rate 18 /min 18 /min [facility] Oxygen 100 % 100 % [place] saturation in Medical Arterial blood Center by Pulse oximetry Heart rate 85 /min 85 /min [facility] Diastolic blood 80 mm[Hg] 80 mm[Hg] [facility] Systolic blood 146 mm[Hg] 146 mm[Hg] [facility] Body temperature 36.427981 Kaylie 36.545293 Kaylie [facility] Respiratory rate 18 /min 18 /min [facility] Oxygen 98 % 98 % [place] saturation in Medical Arterial blood Center by Pulse oximetry Heart rate 80 /min 80 /min [facility] Diastolic blood 60 mm[Hg] 60 mm[Hg] [facility] pressure [facility] Center Systolic blood 96 mm[Hg] 96 mm[Hg] [facility] Body temperature 36.443225 Kaylie 36.392079 Kaylie [facility] Respiratory rate 18 /min 18 /min [facility] Oxygen 98 % 98 % [place] saturation in Medical Arterial blood Center by Pulse oximetry Heart rate 83 /min 83 /min [facility] Diastolic blood 68 mm[Hg] 68 mm[Hg] [facility] pressure [facility] Center Systolic blood 128 mm[Hg] 128 mm[Hg] [facility] Body mass index 29.8 kg/m2 29.8 kg/m2 [facility] (BMI) [Ratio] [facility] Center Body weight 100.396991 kg 100.372414 kg [facility] [place] Body temperature 36.931368 Kaylie 36.864447 Kaylie [facility] Respiratory rate 18 /min 18 /min [facility] Oxygen 98 % 98 % [place] saturation in Medical Arterial blood Center by Pulse oximetry Heart rate 84 /min 84 /min [facility] Body height 182.671265 cm 182.963850 cm [facility] Diastolic blood 88 mm[Hg] 88 mm[Hg] [facility] Systolic blood 148 mm[Hg] 148 mm[Hg] [facility] Body temperature 36.263295 Kaylie 36.285545 Kaylie [facility] Respiratory rate 17 /min 17 /min [facility] Oxygen 99 % 99 % [place] saturation in Medical Arterial blood Center by Pulse oximetry Heart rate 80 /min 80 /min [facility] Diastolic blood 79 mm[Hg] 79 mm[Hg] [facility] pressure [facility] Center Systolic blood 126 mm[Hg] 126 mm[Hg] [facility] Body temperature 36.778642 Kaylie 36.697925 Kaylie [facility] Respiratory rate 17 /min 17 /min [facility] Oxygen 99 % 99 % [place] saturation in Medical Arterial blood Center by Pulse oximetry Heart rate 85 /min 85 /min [facility] Diastolic blood 74 mm[Hg] 74 mm[Hg] [facility] pressure [facility] Center Systolic blood 136 mm[Hg] 136 mm[Hg] [facility] Body temperature 36.534476 Kaylie 36.781749 Kaylie [facility] Respiratory rate 18 /min 18 /min [facility] Oxygen 98 % 98 % [place] saturation in Medical Arterial blood Center by Pulse oximetry Heart rate 97 /min 97 /min [facility] Diastolic blood 70 mm[Hg] 70 mm[Hg] [facility] [facility] Systolic blood 126 mm[Hg] 126 mm[Hg] [facility] Body temperature 36.795061 Kaylie 36.691929 Kaylie [facility] Respiratory rate 19 /min 19 /min [facility] Oxygen 97 % 97 % [place] saturation in Medical Arterial blood Center by Pulse oximetry Heart rate 79 /min 79 /min [facility] Diastolic blood 78 mm[Hg] 78 mm[Hg] [facility] Systolic blood 135 mm[Hg] 135 mm[Hg] [facility] Respiratory rate 18 /min 18 /min [facility] Oxygen 93 % 93 % [place] saturation in Medical Arterial blood Center by Pulse oximetry Heart rate 89 /min 89 /min [facility] Body height 177.848127 cm 177.449090 cm [facility] Diastolic blood 75 mm[Hg] 75 mm[Hg] [facility] Systolic blood 104 mm[Hg] 104 mm[Hg] [facility] Body mass index 37.9 kg/m2 37.9 kg/m2 [facility] (BMI) [Ratio] [facility] Center Body weight 120.550761 kg 120.633371 kg [facility] Body temperature 36.234679 Kaylie 36.193633 Kaylie [facility] Body temperature 36.930872 Kaylie 36.561162 Kaylie [facility] Respiratory rate 17 /min 17 /min [facility] Oxygen 95 % 95 % [place] saturation in Medical Arterial blood Center by Pulse oximetry Heart rate 94 /min 94 /min [facility] Diastolic blood 62 mm[Hg] 62 mm[Hg] [facility] Systolic blood 115 mm[Hg] 115 mm[Hg] [facility] Body temperature 36.041636 Kaylie 36.024955 Kaylie [facility] Respiratory rate 18 /min 18 /min [facility] Oxygen 96 % 96 % [place] saturation in Medical Arterial blood Center by Pulse oximetry Heart rate 91 /min 91 /min [facility] Diastolic blood 77 mm[Hg] 77 mm[Hg] [facility] Systolic blood 131 mm[Hg] 131 mm[Hg] [facility] Body temperature 37.335413 Kaylie 37.941997 Kaylie [facility] Respiratory rate 19 /min 19 /min [facility] Oxygen 97 % 97 % [place] saturation in Medical Arterial blood Center by Pulse oximetry Heart rate 105 /min 105 /min [facility] Diastolic blood 74 mm[Hg] 74 mm[Hg] [facility] Systolic blood 122 mm[Hg] 122 mm[Hg] [facility] Body temperature 37.101765 Kaylie 37.690251 Kaylie [facility] Respiratory rate 20 /min 20 /min [facility] Oxygen 93 % 93 % [place] saturation in Medical Arterial blood Center by Pulse oximetry Heart rate 117 /min 117 /min [facility] Diastolic blood 58 mm[Hg] 58 mm[Hg] [facility] Systolic blood 108 mm[Hg] 108 mm[Hg] [facility] Body temperature 36.301945 Kaylie 36.621402 Kaylie [facility] Oxygen 90 % 90 % [place] saturation in Medical Arterial blood Center by Pulse oximetry Heart rate 112 /min 112 /min [facility] Diastolic blood 54 mm[Hg] 54 mm[Hg] [facility] Systolic blood 117 mm[Hg] 117 mm[Hg] [facility] Body weight 117.419110 kg 117.026018 kg [facility] Body temperature 36.367812 Kaylie 36.110898 Kaylie [facility] Respiratory rate 18 /min 18 /min [facility] Oxygen 99 % 99 % [place] saturation in Medical Arterial blood Center by Pulse oximetry Heart rate 89 /min 89 /min [facility] Body height 182.633250 cm 182.927131 cm [facility] Diastolic blood 84 mm[Hg] 84 mm[Hg] [facility] pressure Medical Center Systolic blood 142 mm[Hg] 142 mm[Hg] [facility] Body mass index 35.2 kg/m2 35.2 kg/m2 [facility] (BMI) [Ratio] [facility] Body temperature 36.107887 Kaylie 36.140813 Kaylie [facility] Respiratory rate 16 /min 16 /min [facility] Oxygen 98 % 98 % [place] saturation in Medical Arterial blood Center by Pulse oximetry Heart rate 79 /min 79 /min [facility] Diastolic blood 94 mm[Hg] 94 mm[Hg] [facility] Systolic blood 149 mm[Hg] 149 mm[Hg] [facility] Body temperature 36.082307 Kaylie 36.773454 Kaylie [facility] Respiratory rate 16 /min 16 /min [facility] Oxygen 95 % 95 % [place] saturation in Medical Arterial blood Center by Pulse oximetry Heart rate 83 /min 83 /min [facility] Diastolic blood 74 mm[Hg] 74 mm[Hg] [facility] Systolic blood 156 mm[Hg] 156 mm[Hg] [facility] Body temperature 36.124974 Kaylie 36.080999 Kaylie [facility] Respiratory rate 20 /min 20 /min [facility] Oxygen 96 % 96 % [place] saturation in Medical Arterial blood Center by Pulse oximetry Heart rate 85 /min 85 /min [facility] Diastolic blood 83 mm[Hg] 83 mm[Hg] [facility] pressure Medical Center Systolic blood 142 mm[Hg] 142 mm[Hg] [facility] Body temperature 36.958081 Kaylie 36.387910 Kaylie [facility] Respiratory rate 20 /min 20 /min [facility] Oxygen 97 % 97 % [place] saturation in Medical Arterial blood Center by Pulse oximetry Heart rate 107 /min 107 /min [facility] Diastolic blood 104 mm[Hg] 104 mm[Hg] [facility] Systolic blood 164 mm[Hg] 164 mm[Hg] [facility] Body temperature 36.175820 Kaylie 36.220372 Kaylie [facility] Respiratory rate 20 /min 20 /min [facility] Oxygen 97 % 97 % [place] saturation in Medical Arterial blood Center by Pulse oximetry Heart rate 90 /min 90 /min [facility] Diastolic blood 78 mm[Hg] 78 mm[Hg] [facility] Systolic blood 140 mm[Hg] 140 mm[Hg] [facility] Body weight 99.609111 kg 99.069886 kg [facility] Body temperature 36.551878 Kaylie 36.331693 Kaylie [facility] Respiratory rate 17 /min 17 /min [facility] Oxygen 95 % 95 % [place] saturation in Medical Arterial blood Center by Pulse oximetry Heart rate 92 /min 92 /min [facility] Body height 177.755984 cm 177.190467 cm [facility] Diastolic blood 78 mm[Hg] 78 mm[Hg] [facility] Systolic blood 138 mm[Hg] 138 mm[Hg] [facility] Body mass index 31.5 kg/m2 31.5 kg/m2 [facility] (BMI) [Ratio] [facility] Body temperature 36.636886 Kaylie 36.674097 Kaylie [facility] Respiratory rate 17 /min 17 /min [facility] Oxygen 98 % 98 % [place] saturation in Medical Arterial blood Center by Pulse oximetry Heart rate 75 /min 75 /min [facility] Diastolic blood 68 mm[Hg] 68 mm[Hg] [facility] Systolic blood 129 mm[Hg] 129 mm[Hg] [facility] Body temperature 36.090735 Kaylie 36.424684 Kaylie [facility] Respiratory rate 17 /min 17 /min [facility] Oxygen 99 % 99 % [place] saturation in Medical Arterial blood Center by Pulse oximetry Heart rate 81 /min 81 /min [facility] Diastolic blood 79 mm[Hg] 79 mm[Hg] [facility] Systolic blood 143 mm[Hg] 143 mm[Hg] [facility] Body temperature 36.524840 Kaylie 36.611775 Kaylie [facility] Respiratory rate 17 /min 17 /min [facility] Oxygen 99 % 99 % [place] saturation in Medical Arterial blood Center by Pulse oximetry Heart rate 88 /min 88 /min [facility] Diastolic blood 76 mm[Hg] 76 mm[Hg] [facility] pressure Medical Center Systolic blood 145 mm[Hg] 145 mm[Hg] [facility] Body temperature 36.108246 Kaylie 36.029663 Kaylie [facility] Respiratory rate 18 /min 18 /min [facility] Oxygen 98 % 98 % [place] saturation in Medical Arterial blood Center by Pulse oximetry Heart rate 76 /min 76 /min [facility] Diastolic blood 75 mm[Hg] 75 mm[Hg] [facility] Systolic blood 122 mm[Hg] 122 mm[Hg] [facility] Body temperature 37.574497 Kaylie 37.892166 Kaylie [facility] Respiratory rate 18 /min 18 /min [facility] Oxygen 97 % 97 % [place] saturation in Medical Arterial blood Center by Pulse oximetry Heart rate 89 /min 89 /min [facility] Diastolic blood 78 mm[Hg] 78 mm[Hg] [facility] Systolic blood 146 mm[Hg] 146 mm[Hg] [facility] Body temperature 36.101273 Kaylie 36.098714 Kaylie [facility] Respiratory rate 18 /min 18 /min [facility] Oxygen 98 % 98 % [place] saturation in Medical Arterial blood Center by Pulse oximetry Heart rate 82 /min 82 /min [facility] Diastolic blood 80 mm[Hg] 80 mm[Hg] [facility] Systolic blood 134 mm[Hg] 134 mm[Hg] [facility] Body temperature 37.379251 Kaylie 37.591707 Kaylie [facility] Respiratory rate 18 /min 18 /min [facility] Oxygen 99 % 99 % [place] saturation in Medical Arterial blood Center by Pulse oximetry Heart rate 86 /min 86 /min [facility] Diastolic blood 85 mm[Hg] 85 mm[Hg] [facility] Systolic blood 142 mm[Hg] 142 mm[Hg] [facility] Body weight 119.121815 kg 119.293230 kg [facility] Body temperature 36.215766 Kaylie 36.327457 Kaylie [facility] Respiratory rate 18 /min 18 /min [facility] Oxygen 97 % 97 % [place] saturation in Medical Arterial blood Center by Pulse oximetry Heart rate 83 /min 83 /min [facility] Diastolic blood 69 mm[Hg] 69 mm[Hg] [facility] Systolic blood 115 mm[Hg] 115 mm[Hg] [facility] Body weight 120.758981 kg 120.693686 kg [facility] Body temperature 37.621332 Kaylie 37.222763 Kaylie [facility] Respiratory rate 18 /min 18 /min [facility] Oxygen 98 % 98 % [place] saturation in Medical Arterial blood Center by Pulse oximetry Heart rate 88 /min 88 /min [facility] Body height 182.235212 cm 182.606005 cm [facility] Diastolic blood 88 mm[Hg] 88 mm[Hg] [facility] Systolic blood 148 mm[Hg] 148 mm[Hg] [facility] Body mass index 35.8 kg/m2 35.8 kg/m2 [facility] (BMI) [Ratio] [facility] Center Body temperature 36.060800 Kaylie 36.726473 Kaylie [facility] Respiratory rate 17 /min 17 /min [facility] Oxygen 97 % 97 % [place] saturation in Medical Arterial blood Center by Pulse oximetry Heart rate 75 /min 75 /min [facility] Diastolic blood 71 mm[Hg] 71 mm[Hg] [facility] Systolic blood 145 mm[Hg] 145 mm[Hg] [facility] Body temperature 36.201982 Kaylie 36.062381 Kaylie [facility] Respiratory rate 19 /min 19 /min [facility] Oxygen 97 % 97 % [place] saturation in Medical Arterial blood Center by Pulse oximetry Heart rate 88 /min 88 /min [facility] Diastolic blood 76 mm[Hg] 76 mm[Hg] [facility] Systolic blood 150 mm[Hg] 150 mm[Hg] [facility] Body temperature 36.035521 Kaylie 36.908327 Kaylie [facility] Respiratory rate 17 /min 17 /min [facility] Oxygen 98 % 98 % [place] saturation in Medical Arterial blood Center by Pulse oximetry Heart rate 71 /min 71 /min [facility] Diastolic blood 68 mm[Hg] 68 mm[Hg] [facility] pressure [facility] Center Systolic blood 129 mm[Hg] 129 mm[Hg] [facility] Body temperature 36.903013 Kaylie 36.817644 Kaylie [facility] Respiratory rate 17 /min 17 /min [facility] Oxygen 97 % 97 % [place] saturation in Medical Arterial blood Center by Pulse oximetry Heart rate 75 /min 75 /min [facility] Diastolic blood 62 mm[Hg] 62 mm[Hg] [facility] Systolic blood 133 mm[Hg] 133 mm[Hg] [facility] Body temperature 36.067113 Kaylie 36.378564 Kaylie [facility] Respiratory rate 17 /min 17 /min [facility] Oxygen 99 % 99 % [place] saturation in Medical Arterial blood Center by Pulse oximetry Heart rate 80 /min 80 /min [facility] Diastolic blood 92 mm[Hg] 92 mm[Hg] [facility] Systolic blood 144 mm[Hg] 144 mm[Hg] [facility] Body temperature 36.023012 Kaylie 36.512104 Kaylie [facility] Respiratory rate 18 /min 18 /min [facility] Oxygen 97 % 97 % [place] saturation in Medical Arterial blood Center by Pulse oximetry Heart rate 89 /min 89 /min [facility] Diastolic blood 88 mm[Hg] 88 mm[Hg] [facility] pressure [facility] Center Systolic blood 148 mm[Hg] 148 mm[Hg] [facility] Body temperature 36.523301 Kaylie 36.992754 Kaylie [facility] Respiratory rate 17 /min 17 /min [facility] Oxygen 97 % 97 % [place] saturation in Medical Arterial blood Center by Pulse oximetry Heart rate 81 /min 81 /min [facility] Diastolic blood 79 mm[Hg] 79 mm[Hg] [facility] pressure [facility] Center Systolic blood 133 mm[Hg] 133 mm[Hg] [facility] Body temperature 36.983243 Kaylie 36.598814 Kaylie [facility] Respiratory rate 17 /min 17 /min [facility] Oxygen 98 % 98 % [place] saturation in Medical Arterial blood Center by Pulse oximetry Heart rate 87 /min 87 /min [facility] Diastolic blood 88 mm[Hg] 88 mm[Hg] [facility] pressure [facility] Center Systolic blood 136 mm[Hg] 136 mm[Hg] [facility] Body temperature 36.171346 Kaylie 36.488984 Kaylie [facility] Respiratory rate 18 /min 18 /min [facility] Oxygen 97 % 97 % [place] saturation in Medical Arterial blood Center by Pulse oximetry Heart rate 95 /min 95 /min [facility] Diastolic blood 84 mm[Hg] 84 mm[Hg] [facility] pressure [facility] Center Systolic blood 149 mm[Hg] 149 mm[Hg] [facility] Body temperature 36.350605 Kaylie 36.646362 Kaylie [facility] Respiratory rate 17 /min 17 /min [facility] Oxygen 99 % 99 % [place] saturation in Medical Arterial blood Center by Pulse oximetry Heart rate 81 /min 81 /min [facility] Diastolic blood 76 mm[Hg] 76 mm[Hg] [facility] Systolic blood 124 mm[Hg] 124 mm[Hg] [facility] Body weight 110.777041 kg 110.675976 kg [facility] Body temperature 36.240106 Kaylie 36.555408 Kaylie [facility] Respiratory rate 18 /min 18 /min [facility] Oxygen 98 % 98 % [place] saturation in Medical Arterial blood Center by Pulse oximetry Heart rate 78 /min 78 /min [facility] Body height 185.962283 cm 185.088461 cm [facility] Diastolic blood 78 mm[Hg] 78 mm[Hg] [facility] Center Systolic blood 138 mm[Hg] 138 mm[Hg] [facility] Body mass index 31.9 kg/m2 31.9 kg/m2 [facility] (BMI) [Ratio] [facility] Body weight 113.436510 kg 113.321976 kg [facility] Body temperature 37.677066 Kaylie 37.115536 Kaylie [facility] Respiratory rate 18 /min 18 /min [facility] Oxygen 100 % 100 % [place] saturation in Medical Arterial blood Center by Pulse oximetry Heart rate 95 /min 95 /min [facility] Body height 175.883395 cm 175.121289 cm [facility] Diastolic blood 83 mm[Hg] 83 mm[Hg] [facility] pressure [facility] Center Systolic blood 148 mm[Hg] 148 mm[Hg] [facility] Body mass index 36.9 kg/m2 36.9 kg/m2 [facility] (BMI) [Ratio] [facility] Body weight 105.228862 kg 105.445164 kg [facility] Body temperature 36.161496 Kaylie 36.637954 Kaylie [facility] Respiratory rate 18 /min 18 /min [facility] Oxygen 93 % 93 % [place] saturation in Medical Arterial blood Center by Pulse oximetry Heart rate 88 /min 88 /min [facility] Body height 173.115792 cm 173.818064 cm [facility] Diastolic blood 88 mm[Hg] 88 mm[Hg] [facility] pressure [facility] Center Systolic blood 140 mm[Hg] 140 mm[Hg] [facility] Body mass index 35.0 kg/m2 35.0 kg/m2 [facility] (BMI) [Ratio] [facility] Body temperature 37.657995 Kaylie 37.568902 Kaylie [facility] Respiratory rate 18 /min 18 /min [facility] Oxygen 95 % 95 % [place] saturation in Medical Arterial blood Center by Pulse oximetry Heart rate 97 /min 97 /min [facility] Diastolic blood 78 mm[Hg] 78 mm[Hg] [facility] pressure [facility] Center Systolic blood 132 mm[Hg] 132 mm[Hg] [facility] Body temperature 37.736232 Kaylie 37.912358 Kaylie [facility] Respiratory rate 18 /min 18 /min [facility] Oxygen 95 % 95 % [place] saturation in Medical Arterial blood Center by Pulse oximetry Heart rate 96 /min 96 /min [facility] Diastolic blood 77 mm[Hg] 77 mm[Hg] [facility] pressure [facility] Center Systolic blood 129 mm[Hg] 129 mm[Hg] [facility] Systolic blood 101 mm[Hg] 101 mm[Hg] [facility] Body temperature 37.008242 Kaylie 37.841753 Kaylie [facility] Respiratory rate 17 /min 17 /min [facility] Oxygen 95 % 95 % [place] saturation in Medical Arterial blood Center by Pulse oximetry Heart rate 96 /min 96 /min [facility] Diastolic blood 57 mm[Hg] 57 mm[Hg] [facility] Body temperature 36.467573 Kaylie 36.712917 Kaylie [facility] Respiratory rate 17 /min 17 /min [facility] Oxygen 98 % 98 % [place] saturation in Medical Arterial blood Center by Pulse oximetry Heart rate 71 /min 71 /min [facility] Diastolic blood 68 mm[Hg] 68 mm[Hg] [facility] Systolic blood 137 mm[Hg] 137 mm[Hg] [facility] Body temperature 36.053124 Kaylie 36.186645 Kaylie [facility] Respiratory rate 17 /min 17 /min [facility] Oxygen 98 % 98 % [place] saturation in Medical Arterial blood Center by Pulse oximetry Heart rate 73 /min 73 /min [facility] Diastolic blood 62 mm[Hg] 62 mm[Hg] [facility] Systolic blood 133 mm[Hg] 133 mm[Hg] [facility] Body temperature 36.371296 Kaylie 36.066154 Kaylie [facility] Respiratory rate 18 /min 18 /min [facility] Oxygen 99 % 99 % [place] saturation in Medical Arterial blood Center by Pulse oximetry Heart rate 78 /min 78 /min [facility] Diastolic blood 81 mm[Hg] 81 mm[Hg] [facility] Systolic blood 158 mm[Hg] 158 mm[Hg] [facility] Body weight 150.270460 kg 150.606917 kg [facility] Body temperature 36.018453 Kaylie 36.455512 Kaylie [facility] Respiratory rate 16 /min 16 /min [facility] Oxygen 98 % 98 % [place] saturation in Medical Arterial blood Center by Pulse oximetry Heart rate 93 /min 93 /min [facility] Body height 177.373585 cm 177.302141 cm [facility] Diastolic blood 92 mm[Hg] 92 mm[Hg] [facility] pressure [facility] Center Systolic blood 140 mm[Hg] 140 mm[Hg] [facility] Body mass index 47.4 kg/m2 47.4 kg/m2 [facility] (BMI) [Ratio] [facility] Center Body weight 68.051885 kg 68.398405 kg [facility] Body temperature 36.894483 Kaylie 36.252692 Kaylie [facility] Respiratory rate 18 /min 18 /min [facility] Oxygen 93 % 93 % [place] saturation in Medical Arterial blood Center by Pulse oximetry Heart rate 93 /min 93 /min [facility] Diastolic blood 87 mm[Hg] 87 mm[Hg] [facility] Systolic blood 160 mm[Hg] 160 mm[Hg] [facility] Body temperature 36.780972 Kaylie 36.625011 Kaylie [facility] Respiratory rate 19 /min 19 /min [facility] Oxygen 97 % 97 % [place] saturation in Medical Arterial blood Center by Pulse oximetry Heart rate 88 /min 88 /min [facility] Diastolic blood 80 mm[Hg] 80 mm[Hg] [facility] Systolic blood 150 mm[Hg] 150 mm[Hg] [facility] Body temperature 36.004908 Kaylie 36.488002 Kaylie [facility] Respiratory rate 17 /min 17 /min [facility] Oxygen 97 % 97 % [place] saturation in Medical Arterial blood Center by Pulse oximetry Heart rate 75 /min 75 /min [facility] Diastolic blood 68 mm[Hg] 68 mm[Hg] [facility] Systolic blood 134 mm[Hg] 134 mm[Hg] [facility] Body temperature 36.348642 Kaylie 36.189531 Kaylie [facility] Respiratory rate 18 /min 18 /min [facility] Oxygen 96 % 96 % [place] saturation in [facility] blood Center by Pulse oximetry Heart rate 85 /min 85 /min [facility] Diastolic blood 82 mm[Hg] 82 mm[Hg] [facility] pressure Medical Center Systolic blood 138 mm[Hg] 138 mm[Hg] [facility] Body temperature 36.940192 Kaylie 36.768290 Kaylie [facility] Respiratory rate 18 /min 18 /min [facility] Oxygen 97 % 97 % [place] saturation in Medical Arterial blood Center by Pulse oximetry Heart rate 88 /min 88 /min [facility] Diastolic blood 72 mm[Hg] 72 mm[Hg] [facility] pressure Medical Center Systolic blood 137 mm[Hg] 137 mm[Hg] [facility] Body temperature 37.290151 Kaylie 37.172627 Kaylie [facility] Respiratory rate 18 /min 18 /min [facility] Oxygen 93 % 93 % [place] saturation in Medical Arterial blood Center by Pulse oximetry Heart rate 94 /min 94 /min [facility] Diastolic blood 70 mm[Hg] 70 mm[Hg] [facility] Systolic blood 132 mm[Hg] 132 mm[Hg] [facility] Body temperature 36.279060 Kaylie 36.642797 Kaylie [facility] Respiratory rate 18 /min 18 /min [facility] Oxygen 97 % 97 % [place] saturation in Medical Arterial blood Center by Pulse oximetry Heart rate 76 /min 76 /min [facility] Diastolic blood 76 mm[Hg] 76 mm[Hg] [facility] Systolic blood 144 mm[Hg] 144 mm[Hg] [facility] Body temperature 36.231683 Kaylie 36.711732 Kaylie [facility] Respiratory rate 19 /min 19 /min [facility] Oxygen 97 % 97 % [place] saturation in Medical Arterial blood Center by Pulse oximetry Heart rate 77 /min 77 /min [facility] Diastolic blood 86 mm[Hg] 86 mm[Hg] [facility] Systolic blood 153 mm[Hg] 153 mm[Hg] [facility] Body temperature 36.030000 Kaylie 36.464320 Kaylie [facility] Respiratory rate 17 /min 17 /min [facility] Oxygen 98 % 98 % [place] saturation in Medical Arterial blood Center by Pulse oximetry Heart rate 75 /min 75 /min [facility] Diastolic blood 75 mm[Hg] 75 mm[Hg] [facility] pressure [facility] Center Systolic blood 129 mm[Hg] 129 mm[Hg] [facility] Body temperature 37.715562 Kaylie 37.438639 Kaylie [facility] Respiratory rate 18 /min 18 /min [facility] Oxygen 97 % 97 % [facility] [place] saturation in Medical Arterial blood Center by Pulse oximetry Heart rate 76 /min 76 /min [facility] Diastolic blood 77 mm[Hg] 77 mm[Hg] [facility] pressure [facility] Center Systolic blood 130 mm[Hg] 130 mm[Hg] [facility] Body temperature 36.106403 Kaylie 36.144353 Kaylie [facility] Respiratory rate 17 /min 17 /min [facility] Oxygen 98 % 98 % [facility] [place] saturation in Medical Arterial blood Center by Pulse oximetry Heart rate 78 /min 78 /min [facility] Diastolic blood 68 mm[Hg] 68 mm[Hg] [facility] pressure [facility] Center Systolic blood 129 mm[Hg] 129 mm[Hg] [facility] Body temperature 36.875670 Kaylie 36.598230 Kaylie [facility] Respiratory rate 19 /min 19 /min [facility] Oxygen 98 % 98 % [place] saturation in Medical Arterial blood Center by Pulse oximetry Heart rate 92 /min 92 /min [facility] Diastolic blood 64 mm[Hg] 64 mm[Hg] [facility] pressure [facility] Center Systolic blood 125 mm[Hg] 125 mm[Hg] [facility] Body temperature 36.935428 Kaylie 36.779422 Kaylie [facility] Respiratory rate 20 /min 20 /min [facility] Oxygen 98 % 98 % [place] saturation in Medical Arterial blood Center by Pulse oximetry Heart rate 93 /min 93 /min [facility] Diastolic blood 92 mm[Hg] 92 mm[Hg] [facility] pressure [facility] Center Systolic blood 150 mm[Hg] 150 mm[Hg] [facility] Body temperature 36.807052 Kaylie 36.245967 Kaylie [facility] Respiratory rate 18 /min 18 /min [facility] Oxygen 97 % 97 % [place] saturation in Medical Arterial blood Center by Pulse oximetry Heart rate 79 /min 79 /min [facility] Diastolic blood 78 mm[Hg] 78 mm[Hg] [facility] Systolic blood 138 mm[Hg] 138 mm[Hg] [facility] Body temperature 36.818280 Kaylie 36.788533 Kaylie [facility] Respiratory rate 17 /min 17 /min [facility] Oxygen 95 % 95 % [place] saturation in Medical Arterial blood Center by Pulse oximetry Heart rate 72 /min 72 /min [facility] Diastolic blood 67 mm[Hg] 67 mm[Hg] [facility] Systolic blood 134 mm[Hg] 134 mm[Hg] [facility] Body temperature 36.534108 Kaylie 36.805200 Kaylie [facility] Respiratory rate 19 /min 19 /min [facility] Oxygen 95 % 95 % [place] saturation in Medical Arterial blood Center by Pulse oximetry Heart rate 68 /min 68 /min [facility] Diastolic blood 68 mm[Hg] 68 mm[Hg] [facility] Systolic blood 144 mm[Hg] 144 mm[Hg] [facility] Body temperature 36.966695 Kaylie 36.795425 Kaylie [facility] Respiratory rate 17 /min 17 /min [facility] Oxygen 96 % 96 % [place] saturation in Medical Arterial blood Center by Pulse oximetry Heart rate 78 /min 78 /min [facility] Diastolic blood 76 mm[Hg] 76 mm[Hg] [facility] Systolic blood 140 mm[Hg] 140 mm[Hg] [facility] Body weight 99.872433 kg 99.500855 kg [facility] [place] Body temperature 36.986587 Kaylie 36.684220 Kaylie [facility] Respiratory rate 19 /min 19 /min [facility] Oxygen 98 % 98 % [place] saturation in Medical Arterial blood Center by Pulse oximetry Heart rate 88 /min 88 /min [facility] Body height 177.835480 cm 177.503673 cm [facility] Diastolic blood 82 mm[Hg] 82 mm[Hg] [facility] pressure [facility] Center Systolic blood 148 mm[Hg] 148 mm[Hg] [facility] Body mass index 31.5 kg/m2 31.5 kg/m2 [facility] (BMI) [Ratio] [facility] Center Body temperature 36.705896 Kaylie 36.045451 Kaylie [facility] Respiratory rate 17 /min 17 /min [facility] Oxygen 98 % 98 % [place] saturation in [facility] Arterial blood Center by Pulse oximetry Heart rate 94 /min 94 /min [facility] Diastolic blood 90 mm[Hg] 90 mm[Hg] [facility] Center Systolic blood 160 mm[Hg] 160 mm[Hg] [facility] Respiratory rate 18 /min 18 /min [facility] Oxygen 98 % 98 % [place] saturation in Medical Arterial blood Center by Pulse oximetry Heart rate 85 /min 85 /min [facility] Diastolic blood 85 mm[Hg] 85 mm[Hg] [facility] Systolic blood 142 mm[Hg] 142 mm[Hg] [facility] Body temperature 37.789719 Kaylie 37.154396 Kaylie [facility] Body weight 110.652420 kg 110.578233 kg [facility] Body temperature 36.943926 Kaylie 36.852696 Kaylie [facility] Respiratory rate 18 /min 18 /min [facility] Oxygen 98 % 98 % [facility] saturation in Medical Arterial blood Center by Pulse oximetry Heart rate 84 /min 84 /min [facility] Body height 182.925865 cm 182.379058 cm [facility] Diastolic blood 58 mm[Hg] 58 mm[Hg] [facility] Systolic blood 148 mm[Hg] 148 mm[Hg] [facility] Body mass index 32.8 kg/m2 32.8 kg/m2 [facility] (BMI) [Ratio] Medical Center Body temperature 36.958301 Kaylie 36.921410 Kaylie [facility] Respiratory rate 18 /min 18 /min [facility] Oxygen 97 % 97 % [place] saturation in Medical Arterial blood Center by Pulse oximetry Heart rate 118 /min 118 /min [facility] Diastolic blood 58 mm[Hg] 58 mm[Hg] [facility] Systolic blood 120 mm[Hg] 120 mm[Hg] [facility] Body temperature 36.183919 Kaylie 36.478055 Kaylie [facility] Respiratory rate 20 /min 20 /min [facility] Oxygen 96 % 96 % [place] saturation in Medical Arterial blood Center by Pulse oximetry Heart rate 143 /min 143 /min [facility] Diastolic blood 40 mm[Hg] 40 mm[Hg] [facility] [place] Systolic blood 119 mm[Hg] 119 mm[Hg] [facility] Respiratory rate 20 /min 20 /min [facility] Oxygen 98 % 98 % [place] saturation in Medical Arterial blood Center by Pulse oximetry Heart rate 92 /min 92 /min [facility] Diastolic blood 86 mm[Hg] 86 mm[Hg] [facility] [place] Systolic blood 134 mm[Hg] 134 mm[Hg] [facility] Body temperature 36.533638 Kaylie 36.512367 Kaylie [facility] Respiratory rate 18 /min 18 /min [facility] Oxygen 98 % 98 % [place] saturation in Medical Arterial blood Center by Pulse oximetry Heart rate 87 /min 87 /min [facility] Diastolic blood 90 mm[Hg] 90 mm[Hg] [facility] [place] Systolic blood 145 mm[Hg] 145 mm[Hg] [facility] Body temperature 36.210809 Kaylie 36.769699 Kaylie [facility] Respiratory rate 16 /min 16 /min [facility] Oxygen 97 % 97 % [place] saturation in Medical Arterial blood Center by Pulse oximetry Heart rate 85 /min 85 /min [facility] Diastolic blood 76 mm[Hg] 76 mm[Hg] [facility] [place] Systolic blood 123 mm[Hg] 123 mm[Hg] [facility] Body temperature 36.949535 Kaylie 36.834562 Kaylie [facility] Body weight 125.177584 kg 125.069431 kg [facility] [place] Body temperature 36.298897 Kaylie 36.969109 Kaylie [facility] Respiratory rate 20 /min 20 /min [facility] Oxygen 95 % 95 % [place] saturation in Medical Arterial blood Center by Pulse oximetry Heart rate 100 /min 100 /min [facility] Body height 177.456186 cm 177.732112 cm [facility] Diastolic blood 76 mm[Hg] 76 mm[Hg] [facility] pressure [facility] Center Systolic blood 124 mm[Hg] 124 mm[Hg] [facility] Body mass index 39.5 kg/m2 39.5 kg/m2 [facility] (BMI) [Ratio] Medical Center Body temperature 36.651851 Kaylie 36.665171 Kaylie [facility] Respiratory rate 17 /min 17 /min [facility] Oxygen 96 % 96 % [place] saturation in Medical Arterial blood Center by Pulse oximetry Heart rate 77 /min 77 /min [facility] Diastolic blood 71 mm[Hg] 71 mm[Hg] [facility] pressure [facility] Center Systolic blood 122 mm[Hg] 122 mm[Hg] [facility] Body temperature 37.409610 Kaylie 37.659535 Kaylie [facility] Respiratory rate 19 /min 19 /min [facility] Oxygen 96 % 96 % [place] saturation in Medical Arterial blood Center by Pulse oximetry Heart rate 72 /min 72 /min [facility] Diastolic blood 64 mm[Hg] 64 mm[Hg] [facility] pressure [facility] Center Systolic blood 140 mm[Hg] 140 mm[Hg] [facility] Body temperature 36.606575 Kaylie 36.963914 Kaylie [facility] Respiratory rate 18 /min 18 /min [facility] Oxygen 97 % 97 % [place] saturation in Medical Arterial blood Center by Pulse oximetry Heart rate 68 /min 68 /min [facility] Diastolic blood 86 mm[Hg] 86 mm[Hg] [facility] pressure [facility] Center Systolic blood 135 mm[Hg] 135 mm[Hg] [facility] Body temperature 36.802229 Kaylie 36.774283 Kaylie [facility] Respiratory rate 18 /min 18 /min [facility] Oxygen 97 % 97 % [place] saturation in Medical Arterial blood Center by Pulse oximetry Heart rate 78 /min 78 /min [facility] Diastolic blood 69 mm[Hg] 69 mm[Hg] [facility] pressure [facility] Center Systolic blood 134 mm[Hg] 134 mm[Hg] [facility] Body temperature 36.181445 Kaylie 36.650119 Kaylie [facility] Respiratory rate 18 /min 18 /min [facility] Oxygen 96 % 96 % [place] saturation in Medical Arterial blood Center by Pulse oximetry Heart rate 87 /min 87 /min [facility] Diastolic blood 80 mm[Hg] 80 mm[Hg] [facility] pressure [facility] Center Systolic blood 135 mm[Hg] 135 mm[Hg] [facility] Heart rate 77 /min 77 /min [facility] Diastolic blood 77 mm[Hg] 77 mm[Hg] [facility] pressure [facility] Center Systolic blood 142 mm[Hg] 142 mm[Hg] [facility] Body temperature 36.187513 Kaylie 36.049183 Kaylie [facility] Respiratory rate 18 /min 18 /min [facility] Oxygen 97 % 97 % [place] saturation in Medical Arterial blood Center by Pulse oximetry Body temperature 36.039039 Kaylie 36.769807 Kaylie [facility] Respiratory rate 18 /min 18 /min [facility] Oxygen 98 % 98 % [place] saturation in Medical Arterial blood Center by Pulse oximetry Heart rate 78 /min 78 /min [facility] Diastolic blood 80 mm[Hg] 80 mm[Hg] [facility] pressure [facility] Center Systolic blood 124 mm[Hg] 124 mm[Hg] [facility] Body temperature 36.497716 Kaylie 36.620068 Kaylie [facility] Respiratory rate 17 /min 17 /min [facility] Oxygen 96 % 96 % [place] saturation in Medical Arterial blood Center by Pulse oximetry Heart rate 80 /min 80 /min [facility] Diastolic blood 88 mm[Hg] 88 mm[Hg] [facility] pressure [facility] Center Systolic blood 133 mm[Hg] 133 mm[Hg] [facility] Body temperature 36.111322 Kaylie 36.172457 Kaylie [facility] Respiratory rate 17 /min 17 /min [facility] Oxygen 99 % 99 % [place] saturation in Medical Arterial blood Center by Pulse oximetry Heart rate 80 /min 80 /min [facility] Diastolic blood 78 mm[Hg] 78 mm[Hg] [facility] pressure [facility] Center Systolic blood 132 mm[Hg] 132 mm[Hg] [facility] Body weight 90.503711 kg 90.631261 kg [facility] Body height 177.956012 cm 177.851923 cm [facility] Body mass index 28.4 kg/m2 28.4 kg/m2 [facility] (BMI) [Ratio] Medical Center Body temperature 36.078756 Kaylie 36.787931 Kaylie [facility] Respiratory rate 18 /min 18 /min [facility] Oxygen 96 % 96 % [place] saturation in Medical Arterial blood Center by Pulse oximetry Heart rate 90 /min 90 /min [facility] Diastolic blood 58 mm[Hg] 58 mm[Hg] [facility] Systolic blood 111 mm[Hg] 111 mm[Hg] [facility] Body temperature 36.431720 Kaylie 36.862640 Kaylie [facility] Respiratory rate 18 /min 18 /min [facility] Oxygen 95 % 95 % [place] saturation in Medical Arterial blood Center by Pulse oximetry Heart rate 94 /min 94 /min [facility] Diastolic blood 55 mm[Hg] 55 mm[Hg] [facility] pressure [facility] Center Systolic blood 114 mm[Hg] 114 mm[Hg] [facility] Body weight 110.018436 kg 110.068688 kg [facility] Body temperature 37.806358 Kaylie 37.434511 Kaylie [facility] Respiratory rate 18 /min 18 /min [facility] Oxygen 98 % 98 % [place] saturation in Medical Arterial blood Center by Pulse oximetry Heart rate 88 /min 88 /min [facility] Body height 185.389563 cm 185.760860 cm [facility] Diastolic blood 78 mm[Hg] 78 mm[Hg] [facility] pressure [facility] Center Systolic blood 143 mm[Hg] 143 mm[Hg] [facility] Body mass index 31.9 kg/m2 31.9 kg/m2 [facility] (BMI) [Ratio] [facility] Center Diastolic blood 79 mm[Hg] 79 mm[Hg] [facility] pressure [facility] Center Systolic blood 122 mm[Hg] 122 mm[Hg] [facility] Body temperature 36.319295 Kaylie 36.773459 Kaylie [facility] Respiratory rate 18 /min 18 /min [facility] Oxygen 98 % 98 % [place] saturation in Medical Arterial blood Center by Pulse oximetry Heart rate 88 /min 88 /min [facility] Diastolic blood 51 mm[Hg] 51 mm[Hg] [facility] [place] Systolic blood 81 mm[Hg] 81 mm[Hg] [facility] Body temperature 37.819808 Kaylie 37.539984 Kaylie [facility] Respiratory rate 18 /min 18 /min [facility] Oxygen 96 % 96 % [place] saturation in Medical Arterial blood Center by Pulse oximetry Heart rate 98 /min 98 /min [facility] Diastolic blood 90 mm[Hg] 90 mm[Hg] [facility] [place] Systolic blood 148 mm[Hg] 148 mm[Hg] [facility] Body temperature 37.782161 Kaylie 37.777629 Kaylie [facility] Respiratory rate 18 /min 18 /min [facility] Oxygen 95 % 95 % [place] saturation in Medical Arterial blood Center by Pulse oximetry Heart rate 99 /min 99 /min [facility] Diastolic blood 79 mm[Hg] 79 mm[Hg] [facility] Systolic blood 132 mm[Hg] 132 mm[Hg] [facility] Body temperature 36.172674 Kaylie 36.093310 Kaylie [facility] Respiratory rate 18 /min 18 /min [facility] Oxygen 96 % 96 % [place] saturation in Medical Arterial blood Center by Pulse oximetry Heart rate 97 /min 97 /min [facility] Diastolic blood 64 mm[Hg] 64 mm[Hg] [facility] Systolic blood 118 mm[Hg] 118 mm[Hg] [facility] Body temperature 36.279021 Kaylie 36.673396 Kaylie [facility] Respiratory rate 18 /min 18 /min [facility] Oxygen 96 % 96 % [place] saturation in Medical Arterial blood Center by Pulse oximetry Heart rate 95 /min 95 /min [facility] Diastolic blood 68 mm[Hg] 68 mm[Hg] [facility] pressure [facility] Center Systolic blood 127 mm[Hg] 127 mm[Hg] [facility] Body temperature 37.309587 Kaylie 37.668079 Kaylie [facility] Respiratory rate 18 /min 18 /min [facility] Oxygen 95 % 95 % [place] saturation in Medical Arterial blood Center by Pulse oximetry Heart rate 94 /min 94 /min [facility] Diastolic blood 69 mm[Hg] 69 mm[Hg] [facility] pressure [facility] Center Systolic blood 115 mm[Hg] 115 mm[Hg] [facility] Body temperature 36.354275 Kaylie 36.869993 Kaylie [facility] Respiratory rate 17 /min 17 /min [facility] Oxygen 95 % 95 % [place] saturation in Medical Arterial blood Center by Pulse oximetry Heart rate 90 /min 90 /min [facility] Diastolic blood 60 mm[Hg] 60 mm[Hg] [facility] Systolic blood 109 mm[Hg] 109 mm[Hg] [facility] Body temperature 36.154023 Kaylie 36.012931 Kaylie [facility] Respiratory rate 16 /min 16 /min [facility] Heart rate 85 /min 85 /min [facility] Diastolic blood 73 mm[Hg] 73 mm[Hg] [facility] Systolic blood 140 mm[Hg] 140 mm[Hg] [facility] Body temperature 36.435847 Kaylie 36.741803 Kaylie [facility] Respiratory rate 18 /min 18 /min [facility] Oxygen 95 % 95 % [place] saturation in Medical Arterial blood Center by Pulse oximetry Heart rate 90 /min 90 /min [facility] Diastolic blood 76 mm[Hg] 76 mm[Hg] [facility] pressure [facility] Center Systolic blood 131 mm[Hg] 131 mm[Hg] [facility] Body temperature 36.815521 Kaylie 36.408459 Kaylie [facility] Respiratory rate 18 /min 18 /min [facility] Oxygen 94 % 94 % [place] saturation in Medical Arterial blood Center by Pulse oximetry Heart rate 88 /min 88 /min [facility] Diastolic blood 74 mm[Hg] 74 mm[Hg] [facility] pressure [facility] Center Systolic blood 152 mm[Hg] 152 mm[Hg] [facility] Body temperature 36.977595 Kaylie 36.405682 Kaylie [facility] Respiratory rate 17 /min 17 /min [facility] Heart rate 99 /min 99 /min [facility] Diastolic blood 52 mm[Hg] 52 mm[Hg] [facility] Systolic blood 111 mm[Hg] 111 mm[Hg] [facility] Body weight 79.962799 kg 79.487318 kg [facility] Body temperature 36.149666 Kaylie 36.799524 Kaylie [facility] Respiratory rate 19 /min 19 /min [facility] Oxygen 95 % 95 % [place] saturation in Medical Arterial blood Center by Pulse oximetry Heart rate 74 /min 74 /min [facility] Body height 170.523291 cm 170.834161 cm [facility] Diastolic blood 86 mm[Hg] 86 mm[Hg] [facility] Systolic blood 152 mm[Hg] 152 mm[Hg] [facility] Body mass index 27.4 kg/m2 27.4 kg/m2 [facility] (BMI) [Ratio] Medical Center Body temperature 36.714785 Kaylie 36.219827 Kaylie [facility] Respiratory rate 18 /min 18 /min [facility] Oxygen 98 % 98 % [facility] [place] saturation in Medical Arterial blood Center by Pulse oximetry Heart rate 96 /min 96 /min [facility] Diastolic blood 78 mm[Hg] 78 mm[Hg] [facility] Systolic blood 143 mm[Hg] 143 mm[Hg] [facility] Body temperature 36.918290 Kaylie 36.972797 Kaylie [facility] Respiratory rate 19 /min 19 /min [facility] Oxygen 96 % 96 % [facility] [place] saturation in Medical Arterial blood Center by Pulse oximetry Heart rate 105 /min 105 /min [facility] Diastolic blood 66 mm[Hg] 66 mm[Hg] [facility] Systolic blood 113 mm[Hg] 113 mm[Hg] [facility] Body temperature 36.441048 Kaylie 36.085751 Kaylie [facility] Respiratory rate 18 /min 18 /min [facility] Oxygen 96 % 96 % [facility] [place] saturation in Medical Arterial blood Center by Pulse oximetry Heart rate 92 /min 92 /min [facility] Diastolic blood 70 mm[Hg] 70 mm[Hg] [facility] pressure Medical Center Systolic blood 128 mm[Hg] 128 mm[Hg] [facility] Body temperature 36.164006 Kaylie 36.408698 Kaylie [facility] Respiratory rate 17 /min 17 /min [facility] Oxygen 97 % 97 % [facility] [place] saturation in Medical Arterial blood Center by Pulse oximetry Heart rate 78 /min 78 /min [facility] Diastolic blood 78 mm[Hg] 78 mm[Hg] [facility] Systolic blood 138 mm[Hg] 138 mm[Hg] [facility] Body temperature 36.979996 Kaylie 36.149917 Kaylie [facility] Respiratory rate 18 /min 18 /min [facility] Oxygen 95 % 95 % [facility] [place] saturation in Medical Arterial blood Center by Pulse oximetry Heart rate 90 /min 90 /min [facility] Diastolic blood 77 mm[Hg] 77 mm[Hg] [facility] Systolic blood 147 mm[Hg] 147 mm[Hg] [facility] Body temperature 37.095301 Kaylie 37.799745 Kaylie [facility] Respiratory rate 18 /min 18 /min [facility] Oxygen 95 % 95 % [facility] [place] saturation in Medical Arterial blood Center by Pulse oximetry Heart rate 74 /min 74 /min [facility] Diastolic blood 65 mm[Hg] 65 mm[Hg] [facility] pressure Medical Center Systolic blood 127 mm[Hg] 127 mm[Hg] [facility] Body temperature 36.391146 Kaylie 36.446907 Kaylie [facility] Respiratory rate 18 /min 18 /min [facility] Oxygen 96 % 96 % [facility] [place] saturation in Medical Arterial blood Center by Pulse oximetry Heart rate 90 /min 90 /min [facility] Diastolic blood 60 mm[Hg] 60 mm[Hg] [facility] [place] Systolic blood 131 mm[Hg] 131 mm[Hg] [facility] Body temperature 36.568123 Kaylie 36.000223 Kaylie [facility] Respiratory rate 17 /min 17 /min [facility] Oxygen 98 % 98 % [facility] [place] saturation in Medical Arterial blood Center by Pulse oximetry Heart rate 73 /min 73 /min [facility] Diastolic blood 75 mm[Hg] 75 mm[Hg] [facility] Systolic blood 139 mm[Hg] 139 mm[Hg] [facility] Body temperature 36.110146 Kaylie 36.696941 Kaylie [facility] Respiratory rate 18 /min 18 /min [facility] Oxygen 99 % 99 % [facility] [place] saturation in Medical Arterial blood Center by Pulse oximetry Heart rate 103 /min 103 /min [facility] Diastolic blood 43 mm[Hg] 43 mm[Hg] [facility] [place] Systolic blood 117 mm[Hg] 117 mm[Hg] [facility] Body temperature 37.602962 Kaylie 37.194472 Kaylie [facility] Respiratory rate 17 /min 17 /min [facility] Oxygen 95 % 95 % [facility] [place] saturation in Medical Arterial blood Center by Pulse oximetry Heart rate 97 /min 97 /min [facility] Diastolic blood 83 mm[Hg] 83 mm[Hg] [facility] [place] Systolic blood 154 mm[Hg] 154 mm[Hg] [facility] Body temperature 36.409234 Kaylie 36.846444 Kaylie [facility] Respiratory rate 18 /min 18 /min [facility] Oxygen 98 % 98 % [facility] [place] saturation in Medical Arterial blood Center by Pulse oximetry Heart rate 91 /min 91 /min [facility] Diastolic blood 90 mm[Hg] 90 mm[Hg] [facility] Systolic blood 158 mm[Hg] 158 mm[Hg] [facility] Body temperature 36.401426 Kaylie 36.265602 Kaylie [facility] Respiratory rate 18 /min 18 /min [facility] Oxygen 96 % 96 % [facility] [place] saturation in Medical Arterial blood Center by Pulse oximetry Heart rate 91 /min 91 /min [facility] Diastolic blood 98 mm[Hg] 98 mm[Hg] [facility] pressure Medical Center Systolic blood 149 mm[Hg] 149 mm[Hg] [facility] Body temperature 36.978323 Kaylie 36.629330 Kaylie [facility] Respiratory rate 18 /min 18 /min [facility] Oxygen 98 % 98 % [facility] saturation in Medical Arterial blood Center by Pulse oximetry Heart rate 84 /min 84 /min [facility] Diastolic blood 67 mm[Hg] 67 mm[Hg] [facility] Systolic blood 128 mm[Hg] 128 mm[Hg] [facility] Body weight 90.301603 kg 90.999902 kg [facility] Body temperature 36.729803 Kaylie 36.645030 Kaylie [facility] Respiratory rate 17 /min 17 /min [facility] Oxygen 96 % 96 % [facility] saturation in Medical Arterial blood Center by Pulse oximetry Heart rate 79 /min 79 /min [facility] Body height 177.807394 cm 177.476120 cm [facility] Diastolic blood 74 mm[Hg] 74 mm[Hg] [facility] Systolic blood 120 mm[Hg] 120 mm[Hg] [facility] Body mass index 28.6 kg/m2 28.6 kg/m2 [facility] (BMI) [Ratio] Medical Center Body temperature 37.792336 Kaylie 37.914270 Kaylie [facility] Respiratory rate 18 /min 18 /min [facility] Heart rate 95 /min 95 /min [facility] Diastolic blood 114 mm[Hg] 114 mm[Hg] [facility] Systolic blood 179 mm[Hg] 179 mm[Hg] [facility] Body temperature 36.841521 Kaylie 36.884095 Kaylie [facility] Respiratory rate 18 /min 18 /min [facility] Oxygen 96 % 96 % [facility] saturation in Medical Arterial blood Center by Pulse oximetry Heart rate 85 /min 85 /min [facility] Diastolic blood 90 mm[Hg] 90 mm[Hg] [facility] Systolic blood 144 mm[Hg] 144 mm[Hg] [facility] Body temperature 36.451426 Kaylie 36.354438 Kaylie [facility] Respiratory rate 18 /min 18 /min [facility] Oxygen 95 % 95 % [place] saturation in Medical Arterial blood Center by Pulse oximetry Heart rate 84 /min 84 /min [facility] Diastolic blood 80 mm[Hg] 80 mm[Hg] [facility] [place] Systolic blood 138 mm[Hg] 138 mm[Hg] [facility] Body weight 110.991894 kg 110.951803 kg [facility] Body temperature 36.283403 Kaylie 36.691193 Kaylie [facility] Respiratory rate 18 /min 18 /min [facility] Oxygen 98 % 98 % [place] saturation in Medical Arterial blood Center by Pulse oximetry Heart rate 78 /min 78 /min [facility] Body height 185.702700 cm 185.959782 cm [facility] Diastolic blood 78 mm[Hg] 78 mm[Hg] [facility] Systolic blood 148 mm[Hg] 148 mm[Hg] [facility] Body mass index 31.9 kg/m2 31.9 kg/m2 [facility] (BMI) [Ratio] Medical Center Body temperature 36.282264 Kaylie 36.371369 Kaylie [facility] Respiratory rate 20 /min 20 /min [facility] Oxygen 94 % 94 % [facility] [place] saturation in Medical Arterial blood Center by Pulse oximetry Heart rate 80 /min 80 /min [facility] Diastolic blood 69 mm[Hg] 69 mm[Hg] [facility] Systolic blood 125 mm[Hg] 125 mm[Hg] [facility] Body temperature 36.331516 Kaylie 36.910211 Kaylie [facility] Respiratory rate 18 /min 18 /min [facility] Oxygen 100 % 100 % [place] saturation in Medical Arterial blood Center by Pulse oximetry Heart rate 78 /min 78 /min [facility] Diastolic blood 70 mm[Hg] 70 mm[Hg] [facility] Systolic blood 130 mm[Hg] 130 mm[Hg] [facility] Body temperature 36.911852 Kaylie 36.356519 Kaylie [facility] Respiratory rate 18 /min 18 /min [facility] Oxygen 95 % 95 % [facility] [place] saturation in Medical Arterial blood Center by Pulse oximetry Heart rate 93 /min 93 /min [facility] Diastolic blood 83 mm[Hg] 83 mm[Hg] [facility] pressure Medical Center Systolic blood 163 mm[Hg] 163 mm[Hg] [facility] Body temperature 36.455666 Kaylie 36.692997 Kaylie [facility] Respiratory rate 20 /min 20 /min [facility] Oxygen 94 % 94 % [facility] [place] saturation in Medical Arterial blood Center by Pulse oximetry Heart rate 94 /min 94 /min [facility] Diastolic blood 90 mm[Hg] 90 mm[Hg] [facility] pressure [facility] Center Systolic blood 130 mm[Hg] 130 mm[Hg] [facility] Body weight 104.372865 kg 104.919278 kg [facility] Body temperature 36.601657 Kaylie 36.768885 Kaylie [facility] Respiratory rate 17 /min 17 /min [facility] Oxygen 100 % 100 % [place] saturation in Medical Arterial blood Center by Pulse oximetry Heart rate 91 /min 91 /min [facility] Body height 177.590024 cm 177.737123 cm [facility] Diastolic blood 97 mm[Hg] 97 mm[Hg] [facility] pressure Medical Center Systolic blood 123 mm[Hg] 123 mm[Hg] [facility] Body mass index 33.0 kg/m2 33.0 kg/m2 [facility] (BMI) [Ratio] [facility] Center Body temperature 37.044354 Kaylie 37.773514 Kaylie [facility] Respiratory rate 18 /min 18 /min [facility] Oxygen 97 % 97 % [facility] [place] saturation in Medical Arterial blood Center by Pulse oximetry Heart rate 90 /min 90 /min [facility] Diastolic blood 76 mm[Hg] 76 mm[Hg] [facility] pressure [facility] Center Systolic blood 148 mm[Hg] 148 mm[Hg] [facility] Body temperature 37.699216 Kaylie 37.187712 Kaylie [facility] Respiratory rate 18 /min 18 /min [facility] Oxygen 96 % 96 % [place] saturation in Medical Arterial blood Center by Pulse oximetry Heart rate 96 /min 96 /min [facility] Diastolic blood 97 mm[Hg] 97 mm[Hg] [facility] pressure [facility] Center Systolic blood 176 mm[Hg] 176 mm[Hg] [facility] Body temperature 36.306888 Kaylie 36.357528 Kaylie [facility] Respiratory rate 18 /min 18 /min [facility] Oxygen 99 % 99 % [place] saturation in Medical Arterial blood Center by Pulse oximetry Heart rate 98 /min 98 /min [facility] Diastolic blood 91 mm[Hg] 91 mm[Hg] [facility] [place] Systolic blood 152 mm[Hg] 152 mm[Hg] [facility] Body temperature 37.843497 Kaylie 37.672145 Kaylie [facility] Respiratory rate 18 /min 18 /min [facility] Oxygen 94 % 94 % [place] saturation in Medical Arterial blood Center by Pulse oximetry Heart rate 84 /min 84 /min [facility] Diastolic blood 81 mm[Hg] 81 mm[Hg] [facility] [place] Systolic blood 144 mm[Hg] 144 mm[Hg] [facility] Body temperature 36.164573 Akylie 36.141591 Kaylie [facility] Respiratory rate 19 /min 19 /min [facility] Oxygen 99 % 99 % [place] saturation in Medical Arterial blood Center by Pulse oximetry Heart rate 80 /min 80 /min [facility] Diastolic blood 78 mm[Hg] 78 mm[Hg] [facility] Systolic blood 139 mm[Hg] 139 mm[Hg] [facility] Body temperature 36.280124 Kaylie 36.322541 Kaylie [facility] Respiratory rate 19 /min 19 /min [facility] Oxygen 97 % 97 % [place] saturation in Medical Arterial blood Center by Pulse oximetry Heart rate 71 /min 71 /min [facility] Diastolic blood 88 mm[Hg] 88 mm[Hg] [facility] Systolic blood 138 mm[Hg] 138 mm[Hg] [facility] Body temperature 36.490964 Kaylie 36.500872 Kaylie [facility] Respiratory rate 18 /min 18 /min [facility] Oxygen 98 % 98 % [place] saturation in Medical Arterial blood Center by Pulse oximetry Heart rate 97 /min 97 /min [facility] Diastolic blood 90 mm[Hg] 90 mm[Hg] [facility] pressure [facility] Center Systolic blood 156 mm[Hg] 156 mm[Hg] [facility] Body temperature 36.433184 Kaylie 36.028986 Kaylie [facility] Respiratory rate 18 /min 18 /min [facility] Oxygen 95 % 95 % [place] saturation in Medical Arterial blood Center by Pulse oximetry Heart rate 98 /min 98 /min [facility] Diastolic blood 93 mm[Hg] 93 mm[Hg] [facility] pressure [facility] Center Systolic blood 163 mm[Hg] 163 mm[Hg] [facility] Body temperature 36.091242 Kaylie 36.874311 Kaylie [facility] Respiratory rate 18 /min 18 /min [facility] Oxygen 95 % 95 % [place] saturation in Medical Arterial blood Center by Pulse oximetry Heart rate 84 /min 84 /min [facility] Diastolic blood 83 mm[Hg] 83 mm[Hg] [facility] Systolic blood 130 mm[Hg] 130 mm[Hg] [facility] Body temperature 36.313098 Kaylie 36.425014 Kaylie [facility] Respiratory rate 17 /min 17 /min [facility] Oxygen 96 % 96 % [place] saturation in Medical Arterial blood Center by Pulse oximetry Heart rate 81 /min 81 /min [facility] Diastolic blood 71 mm[Hg] 71 mm[Hg] [facility] Systolic blood 118 mm[Hg] 118 mm[Hg] [facility] Body temperature 37.842008 Kaylie 37.459582 Kaylie [facility] Respiratory rate 18 /min 18 /min [facility] Oxygen 91 % 91 % [place] saturation in Medical Arterial blood Center by Pulse oximetry Heart rate 107 /min 107 /min [facility] Diastolic blood 79 mm[Hg] 79 mm[Hg] [facility] Systolic blood 144 mm[Hg] 144 mm[Hg] [facility] Body temperature 36.090637 Kaylie 36.830358 Kaylie [facility] Respiratory rate 18 /min 18 /min [facility] Oxygen 90 % 90 % [place] saturation in Medical Arterial blood Center by Pulse oximetry Heart rate 96 /min 96 /min [facility] Diastolic blood 43 mm[Hg] 43 mm[Hg] [facility] pressure [facility] Center Systolic blood 100 mm[Hg] 100 mm[Hg] [facility] Body temperature 36.439851 Kaylie 36.530145 Kaylie [facility] Respiratory rate 18 /min 18 /min [facility] Oxygen 98 % 98 % [place] saturation in Medical Arterial blood Center by Pulse oximetry Heart rate 96 /min 96 /min [facility] Diastolic blood 80 mm[Hg] 80 mm[Hg] [facility] pressure [facility] Center Systolic blood 132 mm[Hg] 132 mm[Hg] [facility] Body temperature 37.342179 Kaylie 37.356903 Kaylie [facility] Respiratory rate 18 /min 18 /min [facility] Oxygen 97 % 97 % [place] saturation in Medical Arterial blood Center by Pulse oximetry Heart rate 98 /min 98 /min [facility] Diastolic blood 57 mm[Hg] 57 mm[Hg] [facility] Systolic blood 141 mm[Hg] 141 mm[Hg] [facility] Body temperature 36.072074 Kaylie 36.077653 Kaylie [facility] Respiratory rate 20 /min 20 /min [facility] Oxygen 97 % 97 % [place] saturation in Medical Arterial blood Center by Pulse oximetry Heart rate 100 /min 100 /min [facility] Diastolic blood 71 mm[Hg] 71 mm[Hg] [facility] Systolic blood 140 mm[Hg] 140 mm[Hg] [facility] Body temperature 36.150676 Kaylie 36.193888 Kaylie [facility] Respiratory rate 18 /min 18 /min [facility] Oxygen 98 % 98 % [place] saturation in Medical Arterial blood Center by Pulse oximetry Heart rate 96 /min 96 /min [facility] Diastolic blood 67 mm[Hg] 67 mm[Hg] [facility] pressure [facility] Center Systolic blood 132 mm[Hg] 132 mm[Hg] [facility] Body temperature 36.969475 Kaylie 36.415089 Kaylie [facility] Respiratory rate 17 /min 17 /min [facility] Oxygen 98 % 98 % [place] saturation in Medical Arterial blood Center by Pulse oximetry Heart rate 87 /min 87 /min [facility] Diastolic blood 71 mm[Hg] 71 mm[Hg] [facility] pressure [facility] Center Systolic blood 133 mm[Hg] 133 mm[Hg] [facility] Body temperature 36.911830 Kaylie 36.207455 Kaylie [facility] Respiratory rate 17 /min 17 /min [facility] Oxygen 95 % 95 % [place] saturation in Medical Arterial blood Center by Pulse oximetry Heart rate 100 /min 100 /min [facility] Diastolic blood 78 mm[Hg] 78 mm[Hg] [facility] pressure [facility] Center Systolic blood 124 mm[Hg] 124 mm[Hg] [facility] Body temperature 36.025106 Kaylie 36.993369 Kaylie [facility] Respiratory rate 19 /min 19 /min [facility] Oxygen 95 % 95 % [place] saturation in Medical Arterial blood Center by Pulse oximetry Heart rate 103 /min 103 /min [facility] Diastolic blood 65 mm[Hg] 65 mm[Hg] [facility] pressure [facility] Center Systolic blood 126 mm[Hg] 126 mm[Hg] [facility] Body temperature 36.678698 Kaylie 36.837798 Kaylie [facility] Respiratory rate 20 /min 20 /min [facility] Oxygen 94 % 94 % [place] saturation in Medical Arterial blood Center by Pulse oximetry Heart rate 105 /min 105 /min [facility] Diastolic blood 61 mm[Hg] 61 mm[Hg] [facility] Center Systolic blood 122 mm[Hg] 122 mm[Hg] [facility] Body temperature 36.007067 Kaylie 36.153130 Kaylie [facility] Respiratory rate 18 /min 18 /min [facility] Oxygen 97 % 97 % [place] saturation in Medical Arterial blood Center by Pulse oximetry Heart rate 97 /min 97 /min [facility] Diastolic blood 76 mm[Hg] 76 mm[Hg] [facility] Center Systolic blood 132 mm[Hg] 132 mm[Hg] [facility] Body temperature 36.446152 Kaylie 36.952405 Kaylie [facility] Respiratory rate 17 /min 17 /min [facility] Oxygen 98 % 98 % [place] saturation in Medical Arterial blood Center by Pulse oximetry Heart rate 75 /min 75 /min [facility] Diastolic blood 35 mm[Hg] 35 mm[Hg] [facility] Center Systolic blood 139 mm[Hg] 139 mm[Hg] [facility] Body temperature 36.681622 Kaylie 36.896949 Kaylie [facility] Respiratory rate 17 /min 17 /min [facility] Oxygen 98 % 98 % [place] saturation in Medical Arterial blood Center by Pulse oximetry Heart rate 81 /min 81 /min [facility] Diastolic blood 83 mm[Hg] 83 mm[Hg] [facility] Systolic blood 135 mm[Hg] 135 mm[Hg] [facility] Body temperature 36.225582 Kaylie 36.530055 Kaylie [facility] Respiratory rate 17 /min 17 /min [facility] Oxygen 97 % 97 % [place] saturation in Medical Arterial blood Center by Pulse oximetry Heart rate 87 /min 87 /min [facility] Diastolic blood 57 mm[Hg] 57 mm[Hg] [facility] Systolic blood 92 mm[Hg] 92 mm[Hg] [facility] Body temperature 36.377485 Kaylie 36.056850 Kaylie [facility] Respiratory rate 17 /min 17 /min [facility] Oxygen 98 % 98 % [place] saturation in Medical Arterial blood Center by Pulse oximetry Heart rate 80 /min 80 /min [facility] Diastolic blood 78 mm[Hg] 78 mm[Hg] [facility] Systolic blood 123 mm[Hg] 123 mm[Hg] [facility] Body weight 95.145489 kg 95.613012 kg [facility] Body temperature 36.238463 Kaylie 36.239761 Kaylie [facility] Respiratory rate 17 /min 17 /min [facility] Oxygen 96 % 96 % [place] saturation in Medical Arterial blood Center by Pulse oximetry Heart rate 90 /min 90 /min [facility] Body height 177.133270 cm 177.279564 cm [facility] Diastolic blood 73 mm[Hg] 73 mm[Hg] [facility] Systolic blood 132 mm[Hg] 132 mm[Hg] [facility] Body mass index 30.1 kg/m2 30.1 kg/m2 [facility] (BMI) [Ratio] Medical Center Body temperature 36.305681 Kaylie 36.213207 Kaylie [facility] Respiratory rate 18 /min 18 /min [facility] Heart rate 88 /min 88 /min [facility] [facility] Diastolic blood 71 mm[Hg] 71 mm[Hg] [facility] Systolic blood 147 mm[Hg] 147 mm[Hg] [facility] Body temperature 36.411791 Kaylie 36.157589 Kaylie [facility] Respiratory rate 20 /min 20 /min [facility] Heart rate 86 /min 86 /min [facility] Diastolic blood 89 mm[Hg] 89 mm[Hg] [facility] Systolic blood 145 mm[Hg] 145 mm[Hg] [facility] Body weight 114.074069 kg 114.022371 kg [facility] Body height 177.075025 cm 177.642095 cm [facility] Body mass index 36.06 kg/m2 36.06 kg/m2 [facility] (BMI) [Ratio] [facility] Body temperature 37.272350 Kaylie 37.234361 Kaylie [facility] Respiratory rate 18 /min 18 /min [facility] Heart rate 89 /min 89 /min [facility] Diastolic blood 73 mm[Hg] 73 mm[Hg] [facility] Systolic blood 120 mm[Hg] 120 mm[Hg] [facility] Body temperature 37.868696 Kaylie 37.148346 Kaylie [facility] Respiratory rate 18 /min 18 /min [facility] Heart rate 90 /min 90 /min [facility] Diastolic blood 107 mm[Hg] 107 mm[Hg] [facility] Systolic blood 160 mm[Hg] 160 mm[Hg] [facility] Body temperature 37.643135 Kaylie 37.727838 Kaylie [facility] Respiratory rate 18 /min 18 /min [facility] Heart rate 80 /min 80 /min [facility] Diastolic blood 68 mm[Hg] 68 mm[Hg] [facility] pressure [facility] Center Systolic blood 128 mm[Hg] 128 mm[Hg] [facility] Body weight 114.310460 kg 114.905151 kg [facility] Body height 177.829719 cm 177.842591 cm [facility] Body mass index 36.06 kg/m2 36.06 kg/m2 [facility] (BMI) [Ratio] [facility] Oxygen 95 % 95 % [place] saturation in Medical Arterial blood Center by Pulse oximetry Body weight 114.973885 kg 114.748183 kg [facility] Body height 177.703646 cm 177.076602 cm [facility] Body mass index 36.06 kg/m2 36.06 kg/m2 [facility] (BMI) [Ratio] [facility] Oxygen 95 % 95 % [place] saturation in Medical Arterial blood Center by Pulse oximetry Oxygen 95 % 95 % [facility] saturation in Medical Arterial blood Center by Pulse oximetry Body height 177.874159 cm 177.238551 cm [facility] Body mass index 36.06 kg/m2 36.06 kg/m2 [facility] (BMI) [Ratio] [facility] Body weight 114.987345 kg 114.310350 kg [facility] Body weight 114.592243 kg 114.504513 kg [facility] Body height 177.310151 cm 177.475165 cm [facility] Body mass index 36.06 kg/m2 36.06 kg/m2 [facility] (BMI) [Ratio] [facility] Diastolic blood 86 mm[Hg] 86 mm[Hg] [facility] pressure [facility] Center Systolic blood 146 mm[Hg] 146 mm[Hg] [facility] Body temperature 37.505255 Kaylie 37.807789 Kaylie [facility] Body temperature 37.974781 Kaylie 37.822528 Kaylie [facility] Respiratory rate 18 /min 18 /min [facility] Heart rate 94 /min 94 /min [facility] Diastolic blood 87 mm[Hg] 87 mm[Hg] [facility] Systolic blood 151 mm[Hg] 151 mm[Hg] [facility] Body weight 114.403827 kg 114.611081 kg [facility] Body height 177.752603 cm 177.182316 cm [facility] Body mass index 36.06 kg/m2 36.06 kg/m2 [facility] (BMI) [Ratio] [facility] Body weight 114.673075 kg 114.354591 kg [facility] Body height 177.917729 cm 177.933806 cm [facility] Body mass index 36.06 kg/m2 36.06 kg/m2 [facility] (BMI) [Ratio] [facility] Body weight 114.776925 kg 114.237110 kg [facility] Body temperature 37.634874 Kaylie 37.338429 Kaylie [facility] Body temperature 36.258520 Kayile 36.538071 Kaylie [facility] Respiratory rate 18 /min 18 /min [facility] Respiratory rate 17 /min 17 /min [facility] Heart rate 84 /min 84 /min [facility] Heart rate 78 /min 78 /min [facility] Body height 177.062788 cm 177.785365 cm [facility] Diastolic blood 96 mm[Hg] 96 mm[Hg] [facility] Systolic blood 176 mm[Hg] 176 mm[Hg] [facility] Diastolic blood 96 mm[Hg] 96 mm[Hg] [facility] Systolic blood 149 mm[Hg] 149 mm[Hg] [facility] Body mass index 36.06 kg/m2 36.06 kg/m2 [facility] (BMI) [Ratio] [facility] Center Oxygen 99 % 99 % [facility] saturation in Medical Arterial blood Center by Pulse oximetry Body temperature 36.747361 Kaylie 36.321593 Kaylie [facility] Respiratory rate 18 /min 18 /min [facility] Heart rate 80 /min 80 /min [facility] Diastolic blood 99 mm[Hg] 99 mm[Hg] [facility] Systolic blood 149 mm[Hg] 149 mm[Hg] [facility] Oxygen 99 % 99 % [facility] saturation in Medical Arterial blood Center by Pulse oximetry Systolic blood 144 mm[Hg] 144 mm[Hg] [facility] Body temperature 36.421871 Kaylie 36.612907 Kaylie [facility] Respiratory rate 17 /min 17 /min [facility] Oxygen 98 % 98 % [facility] saturation in Medical Arterial blood Center by Pulse oximetry Heart rate 78 /min 78 /min [facility] Diastolic blood 94 mm[Hg] 94 mm[Hg] [facility] Respiratory rate 20 /min 20 /min [facility] Oxygen 96 % 96 % [facility] saturation in Medical Arterial blood Center by Pulse oximetry Heart rate 88 /min 88 /min [facility] Oxygen 97 % 97 % [facility] saturation in Medical Arterial blood Center by Pulse oximetry Body temperature 36.689596 Kaylie 36.635275 Kaylie [facility] Respiratory rate 18 /min 18 /min [facility] Oxygen 98 % 98 % [facility] saturation in Medical Arterial blood Center by Pulse oximetry Heart rate 87 /min 87 /min [facility] Diastolic blood 77 mm[Hg] 77 mm[Hg] [facility] pressure [facility] Center Systolic blood 112 mm[Hg] 112 mm[Hg] [facility] Body temperature 36.865458 Kaylie 36.811492 Kaylie [facility] Respiratory rate 17 /min 17 /min [facility] Oxygen 98 % 98 % [facility] [place] saturation in Medical Arterial blood Center by Pulse oximetry Heart rate 81 /min 81 /min [facility] Diastolic blood 67 mm[Hg] 67 mm[Hg] [facility] pressure [facility] Center Systolic blood 132 mm[Hg] 132 mm[Hg] [facility] Body temperature 37.074667 Kaylie 37.258512 Kaylie [facility] Respiratory rate 16 /min 16 /min [facility] Oxygen 98 % 98 % [facility] [place] saturation in Medical Arterial blood Center by Pulse oximetry Heart rate 78 /min 78 /min [facility] Diastolic blood 65 mm[Hg] 65 mm[Hg] [facility] pressure [facility] Center Systolic blood 136 mm[Hg] 136 mm[Hg] [facility] Body temperature 36.880170 Kaylie 36.136551 Kaylie [facility] Respiratory rate 17 /min 17 /min [facility] Oxygen 96 % 96 % [facility] [place] saturation in Medical Arterial blood Center by Pulse oximetry Heart rate 86 /min 86 /min [facility] Diastolic blood 73 mm[Hg] 73 mm[Hg] [facility] pressure Medical Center Systolic blood 142 mm[Hg] 142 mm[Hg] [facility] Body temperature 36.155078 Kaylie 36.413900 Kaylie [facility] Respiratory rate 17 /min 17 /min [facility] Heart rate 79 /min 79 /min [facility] Diastolic blood 87 mm[Hg] 87 mm[Hg] [facility] Systolic blood 138 mm[Hg] 138 mm[Hg] [facility] Body temperature 37.450491 Kaylie 37.125842 Kaylie [facility] Respiratory rate 17 /min 17 /min [facility] Heart rate 99 /min 99 /min [facility] Diastolic blood 99 mm[Hg] 99 mm[Hg] [facility] Systolic blood 147 mm[Hg] 147 mm[Hg] [facility] Oxygen 97 % 97 % [facility] [place] saturation in Medical Arterial blood Center by Pulse oximetry Body temperature 36.965564 Kaylie 36.050665 Kaylie [facility] Respiratory rate 18 /min 18 /min [facility] Oxygen 96 % 96 % [facility] [place] saturation in Medical Arterial blood Center by Pulse oximetry Heart rate 78 /min 78 /min [facility] Diastolic blood 78 mm[Hg] 78 mm[Hg] [facility] pressure [facility] Center Systolic blood 138 mm[Hg] 138 mm[Hg] [facility] Body temperature 35.132798 Kaylie 35.938500 Kaylie [facility] Respiratory rate 17 /min 17 /min [facility] Oxygen 98 % 98 % [facility] [place] saturation in Medical Arterial blood Center by Pulse oximetry Heart rate 77 /min 77 /min [facility] Diastolic blood 79 mm[Hg] 79 mm[Hg] [facility] pressure [facility] Center Systolic blood 143 mm[Hg] 143 mm[Hg] [facility] Body temperature 36.151534 Kaylie 36.465224 Kaylie [facility] Respiratory rate 16 /min 16 /min [facility] Heart rate 81 /min 81 /min [facility] Diastolic blood 76 mm[Hg] 76 mm[Hg] [facility] Systolic blood 138 mm[Hg] 138 mm[Hg] [facility] Body temperature 36.113478 Kaylie 36.222777 Kaylie [facility] Respiratory rate 17 /min 17 /min [facility] Oxygen 97 % 97 % [facility] saturation in Medical Arterial blood Center by Pulse oximetry Heart rate 85 /min 85 /min [facility] Diastolic blood 67 mm[Hg] 67 mm[Hg] [facility] Systolic blood 132 mm[Hg] 132 mm[Hg] [facility] Body temperature 36.311681 Kaylie 36.459671 Kaylie [facility] Respiratory rate 17 /min 17 /min [facility] Oxygen 94 % 94 % [facility] saturation in Medical Arterial blood Center by Pulse oximetry Heart rate 70 /min 70 /min [facility] Diastolic blood 72 mm[Hg] 72 mm[Hg] [facility] Systolic blood 125 mm[Hg] 125 mm[Hg] [facility] Body temperature 36.405451 Kaylie 36.199702 Kaylie [facility] Respiratory rate 18 /min 18 /min [facility] Heart rate 88 /min 88 /min [facility] Diastolic blood 69 mm[Hg] 69 mm[Hg] [facility] Systolic blood 134 mm[Hg] 134 mm[Hg] [facility] Body temperature 36.485089 Kaylie 36.850738 Kaylie [facility] Respiratory rate 19 /min 19 /min [facility] Oxygen 96 % 96 % [facility] saturation in Medical Arterial blood Center by Pulse oximetry Heart rate 87 /min 87 /min [facility] Diastolic blood 71 mm[Hg] 71 mm[Hg] [facility] Systolic blood 123 mm[Hg] 123 mm[Hg] [facility] Body weight 104.795417 kg 104.960133 kg [facility] Body temperature 36.276278 Kaylie 36.277913 Kaylie [facility] Respiratory rate 17 /min 17 /min [facility] Oxygen 95 % 95 % [place] saturation in Medical Arterial blood Center by Pulse oximetry Heart rate 89 /min 89 /min [facility] Body height 177.245229 cm 177.125234 cm [facility] Diastolic blood 69 mm[Hg] 69 mm[Hg] [facility] Systolic blood 127 mm[Hg] 127 mm[Hg] [facility] Body mass index 33.0 kg/m2 33.0 kg/m2 [facility] (BMI) [Ratio] [facility] Center Body temperature 36.300829 Kaylie 36.117886 Kaylie [facility] Respiratory rate 19 /min 19 /min [facility] Heart rate 81 /min 81 /min [facility] Diastolic blood 88 mm[Hg] 88 mm[Hg] [facility] Systolic blood 136 mm[Hg] 136 mm[Hg] [facility] Body temperature 36.285425 Kaylie 36.745197 Kaylie [facility] Respiratory rate 18 /min 18 /min [facility] Heart rate 92 /min 92 /min [facility] Diastolic blood 98 mm[Hg] 98 mm[Hg] [facility] Systolic blood 148 mm[Hg] 148 mm[Hg] [facility] Body temperature 36.220838 Kaylie 36.802444 Kaylie [facility] Respiratory rate 19 /min 19 /min [facility] Oxygen 100 % 100 % [place] saturation in Medical Arterial blood Center by Pulse oximetry Heart rate 100 /min 100 /min [facility] Diastolic blood 61 mm[Hg] 61 mm[Hg] [facility] Systolic blood 126 mm[Hg] 126 mm[Hg] [facility] Body temperature 36.977780 Kaylie 36.304784 Kaylie [facility] Respiratory rate 17 /min 17 /min [facility] Oxygen 96 % 96 % [facility] [place] saturation in Medical Arterial blood Center by Pulse oximetry Heart rate 78 /min 78 /min [facility] Diastolic blood 89 mm[Hg] 89 mm[Hg] [facility] Systolic blood 146 mm[Hg] 146 mm[Hg] [facility] Body temperature 36.694032 Kaylie 36.457811 Kaylie [facility] Respiratory rate 17 /min 17 /min [facility] Oxygen 98 % 98 % [facility] saturation in Medical Arterial blood Center by Pulse oximetry Heart rate 90 /min 90 /min [facility] Diastolic blood 63 mm[Hg] 63 mm[Hg] [facility] pressure [facility] Center Systolic blood 145 mm[Hg] 145 mm[Hg] [facility] Respiratory rate 18 /min 18 /min [facility] Oxygen 99 % 99 % [facility] saturation in Medical Arterial blood Center by Pulse oximetry Heart rate 78 /min 78 /min [facility] Diastolic blood 84 mm[Hg] 84 mm[Hg] [facility] Systolic blood 132 mm[Hg] 132 mm[Hg] [facility] Body temperature 36.207358 Kaylie 36.247936 Kaylie [facility] Body weight 110.010531 kg 110.104625 kg [facility] Body temperature 36.084591 Kaylie 36.075551 Kaylie [facility] Respiratory rate 18 /min 18 /min [facility] Oxygen 98 % 98 % [facility] saturation in Medical Arterial blood Center by Pulse oximetry Heart rate 89 /min 89 /min [facility] Body height 180.110665 cm 180.175560 cm [facility] Diastolic blood 88 mm[Hg] 88 mm[Hg] [facility] Systolic blood 154 mm[Hg] 154 mm[Hg] [facility] Body mass index 33.8 kg/m2 33.8 kg/m2 [facility] (BMI) [Ratio] [facility] Body temperature 36.770916 Kaylie 36.144271 Kaylie [facility] Respiratory rate 17 /min 17 /min [facility] Oxygen 99 % 99 % [facility] saturation in Medical Arterial blood Center by Pulse oximetry Heart rate 81 /min 81 /min [facility] Diastolic blood 71 mm[Hg] 71 mm[Hg] [facility] Systolic blood 118 mm[Hg] 118 mm[Hg] [facility] Body temperature 36.934418 Kaylie 36.945368 Kaylie [facility] Respiratory rate 18 /min 18 /min [facility] Oxygen 99 % 99 % [facility] [place] saturation in Medical Arterial blood Center by Pulse oximetry Heart rate 78 /min 78 /min [facility] Diastolic blood 77 mm[Hg] 77 mm[Hg] [facility] pressure [facility] Center Systolic blood 129 mm[Hg] 129 mm[Hg] [facility] Body temperature 37.884945 Kaylie 37.410579 Kaylie [facility] Respiratory rate 17 /min 17 /min [facility] Oxygen 97 % 97 % [facility] [place] saturation in Medical Arterial blood Center by Pulse oximetry Heart rate 79 /min 79 /min [facility] Diastolic blood 75 mm[Hg] 75 mm[Hg] [facility] Systolic blood 136 mm[Hg] 136 mm[Hg] [facility] Body temperature 36.288900 Kaylie 36.133232 Kaylie [facility] Respiratory rate 17 /min 17 /min [facility] Oxygen 98 % 98 % [facility] [place] saturation in Medical Arterial blood Center by Pulse oximetry Heart rate 88 /min 88 /min [facility] Diastolic blood 81 mm[Hg] 81 mm[Hg] [facility] Systolic blood 159 mm[Hg] 159 mm[Hg] [facility] Body temperature 36.117432 Kaylie 36.754670 Kaylie [facility] Respiratory rate 18 /min 18 /min [facility] Oxygen 97 % 97 % [facility] [place] saturation in Medical Arterial blood Center by Pulse oximetry Heart rate 88 /min 88 /min [facility] Diastolic blood 75 mm[Hg] 75 mm[Hg] [facility] pressure [facility] Center Systolic blood 145 mm[Hg] 145 mm[Hg] [facility] Body temperature 36.453516 Kaylie 36.372513 Kaylie [facility] Respiratory rate 17 /min 17 /min [facility] Oxygen 97 % 97 % [facility] [place] saturation in Medical Arterial blood Center by Pulse oximetry Heart rate 90 /min 90 /min [facility] Diastolic blood 78 mm[Hg] 78 mm[Hg] [facility] Systolic blood 160 mm[Hg] 160 mm[Hg] [facility] Body temperature 37.322014 Kaylie 37.290110 Kaylie [facility] Respiratory rate 18 /min 18 /min [facility] Oxygen 95 % 95 % [facility] [place] saturation in Medical Arterial blood Center by Pulse oximetry Heart rate 93 /min 93 /min [facility] Diastolic blood 80 mm[Hg] 80 mm[Hg] [facility] pressure [facility] Center Systolic blood 198 mm[Hg] 198 mm[Hg] [facility] Body temperature 37.024802 Kaylie 37.419768 Kaylie [facility] Respiratory rate 18 /min 18 /min [facility] Oxygen 95 % 95 % [facility] [place] saturation in Medical Arterial blood Center by Pulse oximetry Heart rate 92 /min 92 /min [facility] Diastolic blood 71 mm[Hg] 71 mm[Hg] [facility] Systolic blood 139 mm[Hg] 139 mm[Hg] [facility] Body temperature 36.507864 Kaylie 36.604663 Kaylie [facility] Respiratory rate 17 /min 17 /min [facility] Oxygen 98 % 98 % [facility] [place] saturation in Medical Arterial blood Center by Pulse oximetry Heart rate 89 /min 89 /min [facility] Diastolic blood 83 mm[Hg] 83 mm[Hg] [facility] Systolic blood 159 mm[Hg] 159 mm[Hg] [facility] Body temperature 36.435874 Kaylie 36.987347 Kaylie [facility] Respiratory rate 18 /min 18 /min [facility] Oxygen 97 % 97 % [facility] [place] saturation in Medical Arterial blood Center by Pulse oximetry Heart rate 81 /min 81 /min [facility] Diastolic blood 74 mm[Hg] 74 mm[Hg] [facility] Systolic blood 117 mm[Hg] 117 mm[Hg] [facility] Body temperature 37.232482 Kaylie 37.245027 Kaylie [facility] Respiratory rate 19 /min 19 /min [facility] Oxygen 98 % 98 % [facility] [place] saturation in Medical Arterial blood Center by Pulse oximetry Heart rate 88 /min 88 /min [facility] Diastolic blood 87 mm[Hg] 87 mm[Hg] [facility] pressure [facility] Center Systolic blood 149 mm[Hg] 149 mm[Hg] [facility] Body temperature 37.375285 Kaylie 37.900454 Kaylie [facility] Respiratory rate 20 /min 20 /min [facility] Oxygen 97 % 97 % [facility] [place] saturation in Medical Arterial blood Center by Pulse oximetry Heart rate 92 /min 92 /min [facility] Diastolic blood 85 mm[Hg] 85 mm[Hg] [facility] pressure [facility] Center Systolic blood 152 mm[Hg] 152 mm[Hg] [facility] Body temperature 36.268785 Kaylie 36.462388 Kaylie [facility] Respiratory rate 18 /min 18 /min [facility] Oxygen 100 % 100 % [place] saturation in Medical Arterial blood Center by Pulse oximetry Heart rate 70 /min 70 /min [facility] Diastolic blood 74 mm[Hg] 74 mm[Hg] [facility] Systolic blood 129 mm[Hg] 129 mm[Hg] [facility] Body weight 99.072332 kg 99.290034 kg [facility] Body temperature 36.866709 Kaylie 36.544604 Kaylie [facility] Respiratory rate 18 /min 18 /min [facility] Oxygen 98 % 98 % [facility] saturation in Medical Arterial blood Center by Pulse oximetry Heart rate 78 /min 78 /min [facility] Body height 182.277249 cm 182.721815 cm [facility] Diastolic blood 74 mm[Hg] 74 mm[Hg] [facility] pressure [facility] Center Systolic blood 128 mm[Hg] 128 mm[Hg] [facility] Body mass index 29.8 kg/m2 29.8 kg/m2 [facility] (BMI) [Ratio] [facility] Body temperature 36.229559 Kaylie 36.384438 Kaylie [facility] Respiratory rate 20 /min 20 /min [facility] Oxygen 94 % 94 % [place] saturation in Medical Arterial blood Center by Pulse oximetry Heart rate 92 /min 92 /min [facility] Diastolic blood 87 mm[Hg] 87 mm[Hg] [facility] Systolic blood 143 mm[Hg] 143 mm[Hg] [facility] Body temperature 36.128173 Kaylie 36.467919 Kaylie [facility] Respiratory rate 18 /min 18 /min [facility] Oxygen 96 % 96 % [place] saturation in Medical Arterial blood Center by Pulse oximetry Heart rate 87 /min 87 /min [facility] Diastolic blood 84 mm[Hg] 84 mm[Hg] [facility] Center Systolic blood 136 mm[Hg] 136 mm[Hg] [facility] Body temperature 37.049283 Kaylie 37.967557 Kaylie [facility] Respiratory rate 18 /min 18 /min [facility] Oxygen 96 % 96 % [facility] saturation in Medical Arterial blood Center by Pulse oximetry Heart rate 90 /min 90 /min [facility] Diastolic blood 63 mm[Hg] 63 mm[Hg] [facility] Systolic blood 136 mm[Hg] 136 mm[Hg] [facility] Body temperature 36.136413 Kaylie 36.614269 Kaylie [facility] Respiratory rate 18 /min 18 /min [facility] Oxygen 96 % 96 % [facility] saturation in Medical Arterial blood Center by Pulse oximetry Heart rate 109 /min 109 /min [facility] Diastolic blood 71 mm[Hg] 71 mm[Hg] [facility] Systolic blood 130 mm[Hg] 130 mm[Hg] [facility] Body temperature 36.452290 Kaylie 36.098948 Kaylie [facility] Respiratory rate 18 /min 18 /min [facility] Heart rate 132 /min 132 /min [facility] Diastolic blood 76 mm[Hg] 76 mm[Hg] [facility] Systolic blood 137 mm[Hg] 137 mm[Hg] [facility] Body temperature 36.861988 Kaylie 36.984000 Kaylie [facility] Respiratory rate 17 /min 17 /min [facility] Oxygen 97 % 97 % [facility] saturation in Medical Arterial blood Center by Pulse oximetry Heart rate 104 /min 104 /min [facility] Diastolic blood 81 mm[Hg] 81 mm[Hg] [facility] Systolic blood 143 mm[Hg] 143 mm[Hg] [facility] Body temperature 36.339653 Kaylie 36.477745 Kaylie [facility] Respiratory rate 19 /min 19 /min [facility] Oxygen 95 % 95 % [facility] saturation in Medical Arterial blood Center by Pulse oximetry Heart rate 92 /min 92 /min [facility] Diastolic blood 96 mm[Hg] 96 mm[Hg] [facility] Center Systolic blood 155 mm[Hg] 155 mm[Hg] [facility] Body temperature 37.339521 Kaylie 37.868158 Kaylie [facility] Respiratory rate 18 /min 18 /min [facility] Oxygen 95 % 95 % [facility] saturation in Medical Arterial blood Center by Pulse oximetry Heart rate 104 /min 104 /min [facility] Diastolic blood 78 mm[Hg] 78 mm[Hg] [facility] Systolic blood 155 mm[Hg] 155 mm[Hg] [facility] Body temperature 36.599082 Kaylie 36.726308 Kaylie [facility] Respiratory rate 17 /min 17 /min [facility] Heart rate 95 /min 95 /min [facility] Diastolic blood 93 mm[Hg] 93 mm[Hg] [facility] Systolic blood 156 mm[Hg] 156 mm[Hg] [facility] Body temperature 36.391689 Kaylie 36.139512 Kaylei [facility] Respiratory rate 18 /min 18 /min [facility] Oxygen 98 % 98 % [place] saturation in Medical Arterial blood Center by Pulse oximetry Heart rate 98 /min 98 /min [facility] Diastolic blood 94 mm[Hg] 94 mm[Hg] [facility] Systolic blood 156 mm[Hg] 156 mm[Hg] [facility] Body temperature 36.889811 Kaylie 36.783206 Kaylie [facility] Respiratory rate 18 /min 18 /min [facility] Oxygen 98 % 98 % [facility] saturation in Medical Arterial blood Center by Pulse oximetry Heart rate 91 /min 91 /min [facility] Diastolic blood 96 mm[Hg] 96 mm[Hg] [facility] Systolic blood 146 mm[Hg] 146 mm[Hg] [facility] Respiratory rate 16 /min 16 /min [facility] Oxygen 95 % 95 % [facility] saturation in Medical Arterial blood Center by Pulse oximetry Heart rate 101 /min 101 /min [facility] Diastolic blood 93 mm[Hg] 93 mm[Hg] [facility] Center Systolic blood 152 mm[Hg] 152 mm[Hg] [facility] Body temperature 36.015732 Kaylie 36.237692 Kaylie [facility] Respiratory rate 18 /min 18 /min [facility] Oxygen 96 % 96 % [facility] saturation in Medical Arterial blood Center by Pulse oximetry Heart rate 99 /min 99 /min [facility] Diastolic blood 95 mm[Hg] 95 mm[Hg] [facility] Center Systolic blood 182 mm[Hg] 182 mm[Hg] [facility] Body temperature 37.847647 Kaylie 37.751928 Kaylie [facility] Respiratory rate 16 /min 16 /min [facility] Oxygen 95 % 95 % [facility] saturation in Medical Arterial blood Center by Pulse oximetry Heart rate 105 /min 105 /min [facility] Diastolic blood 102 mm[Hg] 102 mm[Hg] [facility] Center Systolic blood 154 mm[Hg] 154 mm[Hg] [facility] Body temperature 37.194235 Kaylie 37.115942 Kaylie [facility] Respiratory rate 19 /min 19 /min [facility] Oxygen 95 % 95 % [facility] saturation in Medical Arterial blood Center by Pulse oximetry Heart rate 99 /min 99 /min [facility] Diastolic blood 99 mm[Hg] 99 mm[Hg] [facility] Center Systolic blood 175 mm[Hg] 175 mm[Hg] [facility] Body temperature 36.600187 Kaylie 36.202799 Kaylie [facility] Respiratory rate 19 /min 19 /min [facility] Oxygen 97 % 97 % [facility] saturation in Medical Arterial blood Center by Pulse oximetry Heart rate 89 /min 89 /min [facility] Diastolic blood 93 mm[Hg] 93 mm[Hg] [facility] Center Systolic blood 155 mm[Hg] 155 mm[Hg] [facility] Body temperature 36.782685 Kaylie 36.452270 Kaylie [facility] Body temperature 36.087242 Kaylie 36.173980 Kaylie [facility] Respiratory rate 18 /min 18 /min [facility] Oxygen 97 % 97 % [facility] saturation in Medical Arterial blood Center by Pulse oximetry Heart rate 76 /min 76 /min [facility] Diastolic blood 72 mm[Hg] 72 mm[Hg] [facility] Systolic blood 138 mm[Hg] 138 mm[Hg] [facility] Body temperature 36.710742 Kaylie 36.257040 Kaylie [facility] Respiratory rate 17 /min 17 /min [facility] Oxygen 96 % 96 % [facility] saturation in Medical Arterial blood Center by Pulse oximetry Heart rate 78 /min 78 /min [facility] Diastolic blood 69 mm[Hg] 69 mm[Hg] [facility] Systolic blood 142 mm[Hg] 142 mm[Hg] [facility] Body temperature 36.631346 Kaylie 36.795873 Kaylie [facility] Respiratory rate 18 /min 18 /min [facility] Oxygen 97 % 97 % [facility] saturation in Medical Arterial blood Center by Pulse oximetry Heart rate 83 /min 83 /min [facility] Diastolic blood 81 mm[Hg] 81 mm[Hg] [facility] Systolic blood 159 mm[Hg] 159 mm[Hg] [facility] Body temperature 36.268027 Kaylie 36.180676 Kaylie [facility] Respiratory rate 18 /min 18 /min [facility] Oxygen 94 % 94 % [facility] saturation in Medical Arterial blood Center by Pulse oximetry Heart rate 89 /min 89 /min [facility] Diastolic blood 89 mm[Hg] 89 mm[Hg] [facility] Systolic blood 139 mm[Hg] 139 mm[Hg] [facility] Body temperature 36.553840 Kaylie 36.859056 Kaylie [facility] Respiratory rate 19 /min 19 /min [facility] Oxygen 95 % 95 % [facility] saturation in Medical Arterial blood Center by Pulse oximetry Heart rate 88 /min 88 /min [facility] Diastolic blood 82 mm[Hg] 82 mm[Hg] [facility] Systolic blood 156 mm[Hg] 156 mm[Hg] [facility] Body temperature 36.308869 Akylie 36.010613 Kaylie [facility] Respiratory rate 18 /min 18 /min [facility] Oxygen 98 % 98 % [facility] saturation in Medical Arterial blood Center by Pulse oximetry Heart rate 74 /min 74 /min [facility] Diastolic blood 78 mm[Hg] 78 mm[Hg] [facility] Center Systolic blood 128 mm[Hg] 128 mm[Hg] [facility] Body temperature 36.955465 Kaylie 36.815975 Kaylie [facility] Respiratory rate 17 /min 17 /min [facility] Oxygen 99 % 99 % [place] saturation in Medical Arterial blood Center by Pulse oximetry Heart rate 80 /min 80 /min [facility] Diastolic blood 92 mm[Hg] 92 mm[Hg] [facility] Systolic blood 144 mm[Hg] 144 mm[Hg] [facility] Body weight 88.196101 kg 88.782619 kg [facility] Body temperature 36.741415 Kaylie 36.321599 Kaylie [facility] Respiratory rate 17 /min 17 /min [facility] Oxygen 99 % 99 % [facility] saturation in Medical Arterial blood Center by Pulse oximetry Heart rate 78 /min 78 /min [facility] Body height 177.952623 cm 177.032730 cm [facility] Diastolic blood 88 mm[Hg] 88 mm[Hg] [facility] Systolic blood 142 mm[Hg] 142 mm[Hg] [facility] Body mass index 27.8 kg/m2 27.8 kg/m2 [facility] (BMI) [Ratio] [facility] Center Body temperature 37.217640 Kaylie 37.445853 Kaylie [facility] Respiratory rate 18 /min 18 /min [facility] Oxygen 96 % 96 % [facility] saturation in Medical Arterial blood Center by Pulse oximetry Heart rate 97 /min 97 /min [facility] Diastolic blood 95 mm[Hg] 95 mm[Hg] [facility] Systolic blood 157 mm[Hg] 157 mm[Hg] [facility] Body temperature 37.859733 Kaylie 37.582055 Kaylie [facility] Respiratory rate 18 /min 18 /min [facility] Oxygen 95 % 95 % [facility] saturation in Medical Arterial blood Center by Pulse oximetry Heart rate 99 /min 99 /min [facility] Diastolic blood 81 mm[Hg] 81 mm[Hg] [facility] Center Systolic blood 121 mm[Hg] 121 mm[Hg] [facility] Body temperature 36.124873 Kaylie 36.611789 Kaylie [facility] Respiratory rate 18 /min 18 /min [facility] Oxygen 97 % 97 % [facility] saturation in Medical Arterial blood Center by Pulse oximetry Heart rate 89 /min 89 /min [facility] Diastolic blood 70 mm[Hg] 70 mm[Hg] [facility] Center Systolic blood 126 mm[Hg] 126 mm[Hg] [facility] Body weight 104.923046 kg 104.004000 kg [facility] Body temperature 36.198000 Kaylie 36.127266 Kaylie [facility] Respiratory rate 17 /min 17 /min [facility] Oxygen 98 % 98 % [facility] saturation in Medical Arterial blood Center by Pulse oximetry Heart rate 98 /min 98 /min [facility] Body height 177.228513 cm 177.003220 cm [facility] Diastolic blood 60 mm[Hg] 60 mm[Hg] [facility] Center Systolic blood 116 mm[Hg] 116 mm[Hg] [facility] Body mass index 33.0 kg/m2 33.0 kg/m2 [facility] (BMI) [Ratio] [facility] Center Body temperature 36.456676 Kaylie 36.266797 Kaylie [facility] Respiratory rate 17 /min 17 /min [facility] Oxygen 98 % 98 % [facility] saturation in Medical Arterial blood Center by Pulse oximetry Heart rate 84 /min 84 /min [facility] Diastolic blood 91 mm[Hg] 91 mm[Hg] [facility] Systolic blood 153 mm[Hg] 153 mm[Hg] [facility] Body temperature 36.176418 Kaylie 36.244346 Kaylie [facility] Respiratory rate 16 /min 16 /min [facility] Heart rate 75 /min 75 /min [facility] Diastolic blood 76 mm[Hg] 76 mm[Hg] [facility] Center Systolic blood 136 mm[Hg] 136 mm[Hg] [facility] Body temperature 36.758591 Kaylie 36.324735 Kaylie [facility] Respiratory rate 17 /min 17 /min [facility] Oxygen 98 % 98 % [facility] saturation in Medical Arterial blood Center by Pulse oximetry Heart rate 76 /min 76 /min [facility] Diastolic blood 81 mm[Hg] 81 mm[Hg] [facility] Center Systolic blood 149 mm[Hg] 149 mm[Hg] [facility] Body temperature 36.912031 Kaylie 36.202719 Kaylie [facility] Respiratory rate 18 /min 18 /min [facility] Oxygen 96 % 96 % [facility] saturation in Medical Arterial blood Center by Pulse oximetry Heart rate 89 /min 89 /min [facility] Diastolic blood 68 mm[Hg] 68 mm[Hg] [facility] Systolic blood 132 mm[Hg] 132 mm[Hg] [facility] Body temperature 36.388359 Kaylie 36.524474 Kaylie [facility] Respiratory rate 18 /min 18 /min [facility] Oxygen 96 % 96 % [facility] saturation in Medical Arterial blood Center by Pulse oximetry Heart rate 84 /min 84 /min [facility] Diastolic blood 71 mm[Hg] 71 mm[Hg] [facility] Systolic blood 119 mm[Hg] 119 mm[Hg] [facility] Body temperature 36.637360 Kaylie 36.018302 Kaylie [facility] Respiratory rate 19 /min 19 /min [facility] Oxygen 96 % 96 % [facility] saturation in Medical Arterial blood Center by Pulse oximetry Heart rate 83 /min 83 /min [facility] Diastolic blood 66 mm[Hg] 66 mm[Hg] [facility] Center Systolic blood 123 mm[Hg] 123 mm[Hg] [facility] Body temperature 36.953011 Kaylie 36.958164 Kaylie [facility] Respiratory rate 18 /min 18 /min [facility] Oxygen 98 % 98 % [facility] saturation in Medical Arterial blood Center by Pulse oximetry Heart rate 76 /min 76 /min [facility] Diastolic blood 80 mm[Hg] 80 mm[Hg] [facility] Systolic blood 115 mm[Hg] 115 mm[Hg] [facility] Body temperature 36.518803 Kaylie 36.614834 Kaylie [facility] Body temperature 36.573846 Kaylie 36.488377 Kaylie [facility] Respiratory rate 18 /min 18 /min [facility] Oxygen 96 % 96 % [facility] [place] saturation in Medical Arterial blood Center by Pulse oximetry Heart rate 88 /min 88 /min [facility] Diastolic blood 72 mm[Hg] 72 mm[Hg] [facility] Systolic blood 111 mm[Hg] 111 mm[Hg] [facility] Body temperature 36.482448 Kaylie 36.183528 Kaylie [facility] Respiratory rate 18 /min 18 /min [facility] Oxygen 96 % 96 % [facility] saturation in Medical Arterial blood Center by Pulse oximetry Heart rate 87 /min 87 /min [facility] Diastolic blood 85 mm[Hg] 85 mm[Hg] [facility] Systolic blood 136 mm[Hg] 136 mm[Hg] [facility] Body temperature 36.793919 Kaylie 36.902856 Kaylie [facility] Respiratory rate 17 /min 17 /min [facility] Oxygen 91 % 91 % [facility] [place] saturation in Medical Arterial blood Center by Pulse oximetry Heart rate 87 /min 87 /min [facility] Diastolic blood 97 mm[Hg] 97 mm[Hg] [facility] Center Systolic blood 152 mm[Hg] 152 mm[Hg] [facility] Body temperature 36.146561 Kaylie 36.552720 Kaylie [facility] Respiratory rate 20 /min 20 /min [facility] Oxygen 91 % 91 % [facility] [place] saturation in Medical Arterial blood Center by Pulse oximetry Heart rate 77 /min 77 /min [facility] Diastolic blood 78 mm[Hg] 78 mm[Hg] [facility] Systolic blood 140 mm[Hg] 140 mm[Hg] [facility] Body weight 105.186823 kg 105.099255 kg [facility] Body temperature 37.821683 Kaylie 37.001971 Kaylie [facility] Respiratory rate 20 /min 20 /min [facility] Oxygen 92 % 92 % [facility] saturation in Medical Arterial blood Center by Pulse oximetry Heart rate 89 /min 89 /min [facility] Diastolic blood 79 mm[Hg] 79 mm[Hg] [facility] Systolic blood 155 mm[Hg] 155 mm[Hg] [facility] Body temperature 36.939171 Kaylie 36.422986 Kaylie [facility] Respiratory rate 16 /min 16 /min [facility] Oxygen 98 % 98 % [facility] [place] saturation in Medical Arterial blood Center by Pulse oximetry Heart rate 81 /min 81 /min [facility] Diastolic blood 73 mm[Hg] 73 mm[Hg] [facility] Systolic blood 126 mm[Hg] 126 mm[Hg] [facility] Body temperature 36.302774 Kaylie 36.434577 Kaylie [facility] Respiratory rate 17 /min 17 /min [facility] Oxygen 98 % 98 % [facility] [place] saturation in Medical Arterial blood Center by Pulse oximetry Heart rate 67 /min 67 /min [facility] Diastolic blood 63 mm[Hg] 63 mm[Hg] [facility] Systolic blood 134 mm[Hg] 134 mm[Hg] [facility] Body temperature 36.883429 Kyalie 36.685398 Kaylie [facility] Respiratory rate 18 /min 18 /min [facility] Oxygen 97 % 97 % [facility] saturation in Medical Arterial blood Center by Pulse oximetry Heart rate 69 /min 69 /min [facility] Diastolic blood 73 mm[Hg] 73 mm[Hg] [facility] Systolic blood 119 mm[Hg] 119 mm[Hg] [facility] Body temperature 36.533804 Kaylie 36.441341 Kaylie [facility] Respiratory rate 17 /min 17 /min [facility] Oxygen 98 % 98 % [facility] saturation in Medical Arterial blood Center by Pulse oximetry Heart rate 71 /min 71 /min [facility] Diastolic blood 69 mm[Hg] 69 mm[Hg] [facility] Center Systolic blood 127 mm[Hg] 127 mm[Hg] [facility] Body temperature 36.011661 Kaylie 36.294589 Kaylie [facility] Respiratory rate 16 /min 16 /min [facility] Oxygen 100 % 100 % [facility] saturation in Medical Arterial blood Center by Pulse oximetry Heart rate 74 /min 74 /min [facility] Diastolic blood 85 mm[Hg] 85 mm[Hg] [facility] Systolic blood 130 mm[Hg] 130 mm[Hg] [facility] Body temperature 37.606555 Kaylie 37.695812 Kaylie [facility] Respiratory rate 18 /min 18 /min [facility] Oxygen 95 % 95 % [facility] [place] saturation in Medical Arterial blood Center by Pulse oximetry Heart rate 77 /min 77 /min [facility] Diastolic blood 86 mm[Hg] 86 mm[Hg] [facility] Systolic blood 154 mm[Hg] 154 mm[Hg] [facility] Body temperature 36.527220 Kaylie 36.008409 Kaylie [facility] Respiratory rate 18 /min 18 /min [facility] Oxygen 98 % 98 % [place] saturation in Medical Arterial blood Center by Pulse oximetry Heart rate 80 /min 80 /min [facility] Diastolic blood 90 mm[Hg] 90 mm[Hg] [facility] Systolic blood 170 mm[Hg] 170 mm[Hg] [facility] Body temperature 36.760825 Kaylie 36.148645 Kaylie [facility] Respiratory rate 18 /min 18 /min [facility] Oxygen 95 % 95 % [facility] [place] saturation in Medical Arterial blood Center by Pulse oximetry Heart rate 70 /min 70 /min [facility] Diastolic blood 103 mm[Hg] 103 mm[Hg] [facility] Systolic blood 166 mm[Hg] 166 mm[Hg] [facility] Body temperature 36.069706 Kaylie 36.389825 Kaylie [facility] Respiratory rate 18 /min 18 /min [facility] Oxygen 97 % 97 % [facility] saturation in Medical Arterial blood Center by Pulse oximetry Heart rate 87 /min 87 /min [facility] Diastolic blood 72 mm[Hg] 72 mm[Hg] [facility] Center Systolic blood 138 mm[Hg] 138 mm[Hg] [facility] Body temperature 36.963575 Kaylie 36.919561 Kaylie [facility] Respiratory rate 16 /min 16 /min [facility] Oxygen 98 % 98 % [facility] [place] saturation in Medical Arterial blood Center by Pulse oximetry Heart rate 74 /min 74 /min [facility] Diastolic blood 71 mm[Hg] 71 mm[Hg] [facility] Center Systolic blood 146 mm[Hg] 146 mm[Hg] [facility] Body weight 102.874553 kg 102.012618 kg [facility] Body temperature 36.930298 Kaylie 36.467360 Kaylie [facility] Respiratory rate 17 /min 17 /min [facility] Oxygen 98 % 98 % [place] saturation in Medical Arterial blood Center by Pulse oximetry Heart rate 78 /min 78 /min [facility] Body height 177.094997 cm 177.840047 cm [facility] Diastolic blood 78 mm[Hg] 78 mm[Hg] [facility] Center Systolic blood 118 mm[Hg] 118 mm[Hg] [facility] Body mass index 32.2 kg/m2 32.2 kg/m2 [facility] (BMI) [Ratio] [facility] Center Body temperature 37.010986 Kaylie 37.931345 Kaylie [facility] Respiratory rate 18 /min 18 /min [facility] Oxygen 99 % 99 % [facility] saturation in [facility] by Pulse oximetry Heart rate 88 /min 88 /min [facility] Diastolic blood 79 mm[Hg] 79 mm[Hg] [facility] pressure Medical Center Systolic blood 134 mm[Hg] 134 mm[Hg] [facility] Body temperature 37.079465 Kaylie 37.134654 Kaylie [facility] Respiratory rate 18 /min 18 /min [facility] Oxygen 95 % 95 % [facility] [place] saturation in [facility] blood Center by Pulse oximetry Heart rate 82 /min 82 /min [facility] Diastolic blood 79 mm[Hg] 79 mm[Hg] [facility] pressure [facility] Center Systolic blood 144 mm[Hg] 144 mm[Hg] [facility] Body temperature 37.214748 Kaylie 37.941635 Kaylie [facility] Respiratory rate 18 /min 18 /min [facility] Oxygen 95 % 95 % [facility] [place] saturation in [facility] Ar[facility] blood Center by Pulse oximetry Heart rate 86 /min 86 /min [facility] Diastolic blood 92 mm[Hg] 92 mm[Hg] [facility] [place] Systolic blood 112 mm[Hg] 112 mm[Hg] [facility] Body temperature 37.684978 Kaylie 37.912898 Kaylie [facility] Respiratory rate 19 /min 19 /min [facility] Oxygen 90 % 90 % [facility] [place] saturation in [facility] Center by Pulse oximetry Heart rate 84 /min 84 /min [facility] Diastolic blood 92 mm[Hg] 92 mm[Hg] [facility] [place] Systolic blood 142 mm[Hg] 142 mm[Hg] [facility] Body temperature 36.415033 Kaylie 36.183046 Kaylie [facility] Respiratory rate 20 /min 20 /min [facility] Oxygen 90 % 90 % [facility] [place] saturation in [facility] blood Center by Pulse oximetry Heart rate 88 /min 88 /min [facility] Diastolic blood 97 mm[Hg] 97 mm[Hg] [facility] Systolic blood 127 mm[Hg] 127 mm[Hg] [facility] [place] Body temperature 36.421572 Kaylie 36.462270 Kaylie [facility] Respiratory rate 18 /min 18 /min [facility] Oxygen 99 % 99 % [facility] [place] saturation in [facility] by Pulse oximetry Heart rate 78 /min 78 /min [facility] Diastolic blood 80 mm[Hg] 80 mm[Hg] [facility] Systolic blood 144 mm[Hg] 144 mm[Hg] [facility] [place] Body temperature 36.154278 Kaylie 36.903891 Kaylie [facility] Respiratory rate 18 /min 18 /min [facility] Oxygen 97 % 97 % [facility] [place] saturation in [facility] blood [facility] by Pulse oximetry Heart rate 88 /min 88 /min [facility] Diastolic blood 76 mm[Hg] 76 mm[Hg] [facility] pressure [facility] Center Systolic blood 148 mm[Hg] 148 mm[Hg] [facility] Body temperature 36.754561 Kaylie 36.613721 Kaylie [facility] Respiratory rate 19 /min 19 /min [facility] Oxygen 96 % 96 % [facility] [place] saturation in [facility] by Pulse oximetry Heart rate 100 /min 100 /min [facility] Diastolic blood 68 mm[Hg] 68 mm[Hg] [facility] Systolic blood 121 mm[Hg] 121 mm[Hg] [facility] [place] Body temperature 37.818096 Kaylie 37.829991 Kaylie [facility] Respiratory rate 17 /min 17 /min [facility] Oxygen 98 % 98 % [facility] [place] saturation in [facility] by Pulse oximetry Heart rate 105 /min 105 /min [facility] Diastolic blood 65 mm[Hg] 65 mm[Hg] [facility] [place] Systolic blood 119 mm[Hg] 119 mm[Hg] [facility] Body temperature 36.588564 Kaylie 36.705470 Kaylie [facility] Respiratory rate 17 /min 17 /min [facility] Oxygen 98 % 98 % [facility] [place] saturation in [facility] blood Center by Pulse oximetry Heart rate 100 /min 100 /min [facility] Diastolic blood 73 mm[Hg] 73 mm[Hg] [facility] Systolic blood 121 mm[Hg] 121 mm[Hg] [facility] Body temperature 36.853664 Kaylie 36.888333 Kaylie [facility] Respiratory rate 17 /min 17 /min [facility] Oxygen 98 % 98 % [facility] [place] saturation in [facility] by Pulse oximetry Heart rate 69 /min 69 /min [facility] Diastolic blood 75 mm[Hg] 75 mm[Hg] [facility] Systolic blood 129 mm[Hg] 129 mm[Hg] [facility] [place] Body temperature 36.607780 Kaylie 36.441338 Kaylie [facility] Respiratory rate 18 /min 18 /min [facility] Oxygen 98 % 98 % [place] saturation in [facility] by Pulse oximetry Heart rate 82 /min 82 /min [facility] Diastolic blood 73 mm[Hg] 73 mm[Hg] [facility] Center Systolic blood 128 mm[Hg] 128 mm[Hg] [facility] Body temperature 36.282241 Kaylie 36.067026 Kaylie [facility] Respiratory rate 18 /min 18 /min [facility] Oxygen 96 % 96 % [place] saturation in [facility] blood Center by Pulse oximetry Heart rate 81 /min 81 /min [facility] Diastolic blood 78 mm[Hg] 78 mm[Hg] [facility] pressure [facility] Center Systolic blood 126 mm[Hg] 126 mm[Hg] [facility] Body temperature 36.124453 Kaylie 36.135927 Kaylie [facility] Respiratory rate 18 /min 18 /min [facility] Oxygen 97 % 97 % [place] saturation in [facility] by Pulse oximetry Heart rate 79 /min 79 /min [facility] Diastolic blood 72 mm[Hg] 72 mm[Hg] [facility] pressure [facility] Center Systolic blood 129 mm[Hg] 129 mm[Hg] [facility] Body temperature 36.008256 Kaylie 36.663446 Kaylie [facility] Respiratory rate 17 /min 17 /min [facility] Oxygen 98 % 98 % [place] saturation in [facility] by Pulse oximetry Heart rate 88 /min 88 /min [facility] Diastolic blood 71 mm[Hg] 71 mm[Hg] [facility] pressure [facility] Center Systolic blood 126 mm[Hg] 126 mm[Hg] [facility] Body temperature 36.292385 Kaylie 36.226230 Kaylie [facility] Respiratory rate 18 /min 18 /min [facility] Oxygen 98 % 98 % [place] saturation in Medical Ar[facility] blood Center by Pulse oximetry Heart rate 76 /min 76 /min [facility] Diastolic blood 72 mm[Hg] 72 mm[Hg] [facility] pressure [facility] Center Systolic blood 126 mm[Hg] 126 mm[Hg] [facility] Systolic blood 132 mm[Hg] 132 mm[Hg] [facility] Body temperature 36.559528 Kaylie 36.693168 Kaylie [facility] Respiratory rate 17 /min 17 /min [facility] Oxygen 97 % 97 % [place] saturation in [facility] by Pulse oximetry Heart rate 90 /min 90 /min [facility] Diastolic blood 85 mm[Hg] 85 mm[Hg] [facility] Body temperature 37.321151 Kaylie 37.398480 Kaylie [facility] Respiratory rate 18 /min 18 /min [facility] Oxygen 95 % 95 % [place] saturation in [facility] Center by Pulse oximetry Heart rate 95 /min 95 /min [facility] Diastolic blood 96 mm[Hg] 96 mm[Hg] [facility] Systolic blood 147 mm[Hg] 147 mm[Hg] [facility] Body temperature 36.769709 Kaylie 36.910977 Kaylie [facility] Respiratory rate 17 /min 17 /min [facility] Oxygen 95 % 95 % [place] saturation in [facility] blood [facility] by Pulse oximetry Heart rate 94 /min 94 /min [facility] Diastolic blood 90 mm[Hg] 90 mm[Hg] [facility] Systolic blood 163 mm[Hg] 163 mm[Hg] [facility] [place] Body temperature 36.769608 Kaylie 36.608725 Kaylie [facility] Respiratory rate 17 /min 17 /min [facility] Oxygen 98 % 98 % [place] saturation in [facility] by Pulse oximetry Heart rate 96 /min 96 /min [facility] Diastolic blood 70 mm[Hg] 70 mm[Hg] [facility] pressure [facility] Center Systolic blood 122 mm[Hg] 122 mm[Hg] [facility] Body temperature 36.541358 Kaylie 36.893849 Kaylie [facility] Respiratory rate 17 /min 17 /min [facility] Oxygen 98 % 98 % [place] saturation in [facility] Ar[facility] blood [facility] by Pulse oximetry Heart rate 70 /min 70 /min [facility] Diastolic blood 65 mm[Hg] 65 mm[Hg] [facility] pressure [facility] Center Systolic blood 127 mm[Hg] 127 mm[Hg] [facility] Body temperature 36.097079 Kaylie 36.339898 Kaylie [facility] Respiratory rate 16 /min 16 /min [facility] Oxygen 95 % 95 % [place] saturation in [facility] blood Center by Pulse oximetry Heart rate 94 /min 94 /min [facility] Diastolic blood 86 mm[Hg] 86 mm[Hg] [facility] pressure [facility] Center Systolic blood 140 mm[Hg] 140 mm[Hg] [facility] [place] Body temperature 36.156252 Kaylie 36.544053 Kaylie [facility] Respiratory rate 6 /min 6 /min [facility] Oxygen 96 % 96 % [place] saturation in [facility] blood Center by Pulse oximetry Heart rate 101 /min 101 /min [facility] Diastolic blood 90 mm[Hg] 90 mm[Hg] [facility] [place] Systolic blood 156 mm[Hg] 156 mm[Hg] [facility] Body temperature 36.276150 Kaylie 36.162584 Kaylie [facility] Diastolic blood 78 mm[Hg] 78 mm[Hg] [facility] [place] Systolic blood 138 mm[Hg] 138 mm[Hg] [facility] Respiratory rate 18 /min 18 /min [facility] Oxygen 97 % 97 % [place] saturation in [facility] Ar[facility] blood Center by Pulse oximetry Heart rate 87 /min 87 /min [facility] Body temperature 36.830058 Kaylie 36.861973 Kaylie [facility] Respiratory rate 18 /min 18 /min [facility] Oxygen 96 % 96 % [place] saturation in Medical Ar[facility] blood Center by Pulse oximetry Heart rate 96 /min 96 /min [facility] Diastolic blood 90 mm[Hg] 90 mm[Hg] [facility] Systolic blood 150 mm[Hg] 150 mm[Hg] [facility] Body temperature 37.225138 Kaylie 37.489564 Kaylie [facility] Respiratory rate 18 /min 18 /min [facility] Oxygen 96 % 96 % [place] saturation in [facility] Ar[facility] blood Center by Pulse oximetry Heart rate 108 /min 108 /min [facility] Diastolic blood 63 mm[Hg] 63 mm[Hg] [facility] Systolic blood 110 mm[Hg] 110 mm[Hg] [facility] Body weight 116.408628 kg 116.871388 kg [facility] Body height 177.236881 cm 177.892324 cm [facility] Body mass index 36.8 kg/m2 36.8 kg/m2 [facility] (BMI) [Ratio] Medical Center Body temperature 36.592540 Kaylie 36.950259 Kaylie [facility] Respiratory rate 18 /min 18 /min [facility] Oxygen 98 % 98 % [place] saturation in Medical Ar[facility] blood Center by Pulse oximetry Heart rate 82 /min 82 /min [facility] Diastolic blood 90 mm[Hg] 90 mm[Hg] [facility] Systolic blood 135 mm[Hg] 135 mm[Hg] [facility] Body temperature 36.074080 Kaylie 36.802939 Kaylie [facility] Respiratory rate 18 /min 18 /min [facility] Oxygen 98 % 98 % [place] saturation in Medical Ar[facility] blood Center by Pulse oximetry Heart rate 80 /min 80 /min [facility] Diastolic blood 80 mm[Hg] 80 mm[Hg] [facility] Systolic blood 124 mm[Hg] 124 mm[Hg] [facility] Body temperature 37.685811 Kaylie 37.062315 Kaylie [facility] Respiratory rate 17 /min 17 /min [facility] Oxygen 98 % 98 % [place] saturation in Medical Ar[facility] blood Center by Pulse oximetry Heart rate 90 /min 90 /min [facility] Diastolic blood 75 mm[Hg] 75 mm[Hg] [facility] Systolic blood 119 mm[Hg] 119 mm[Hg] [facility] Body temperature 37.925891 Kaylie 37.840989 Kaylie [facility] Respiratory rate 18 /min 18 /min [facility] Oxygen 95 % 95 % [place] saturation in [facility] Ar[facility] blood Center by Pulse oximetry Heart rate 96 /min 96 /min [facility] Diastolic blood 71 mm[Hg] 71 mm[Hg] [facility] Systolic blood 106 mm[Hg] 106 mm[Hg] [facility] Body temperature 37.304138 Kaylie 37.514870 Kaylie [facility] Respiratory rate 18 /min 18 /min [facility] Oxygen 96 % 96 % [place] saturation in [facility] Ar[facility] blood Center by Pulse oximetry Heart rate 96 /min 96 /min [facility] Diastolic blood 65 mm[Hg] 65 mm[Hg] [facility] pressure [facility] Center Systolic blood 116 mm[Hg] 116 mm[Hg] [facility] Body temperature 36.372166 Kaylie 36.142557 Kaylie [facility] Respiratory rate 17 /min 17 /min [facility] Oxygen 96 % 96 % [place] saturation in Medical Ar[facility] blood Center by Pulse oximetry Heart rate 90 /min 90 /min [facility] Diastolic blood 74 mm[Hg] 74 mm[Hg] [facility] Systolic blood 129 mm[Hg] 129 mm[Hg] [facility] Body temperature 37.952827 Kaylie 37.100386 Kaylie [facility] Respiratory rate 17 /min 17 /min [facility] Oxygen 96 % 96 % [place] saturation in Medical Ar[facility] blood Center by Pulse oximetry Heart rate 93 /min 93 /min [facility] Diastolic blood 59 mm[Hg] 59 mm[Hg] [facility] pressure [facility] Center Systolic blood 101 mm[Hg] 101 mm[Hg] [facility] Body temperature 37.322710 Kaylie 37.659490 Kaylie [facility] Respiratory rate 18 /min 18 /min [facility] Oxygen 98 % 98 % [place] saturation in Medical Ar[facility] blood Center by Pulse oximetry Heart rate 89 /min 89 /min [facility] Diastolic blood 86 mm[Hg] 86 mm[Hg] [facility] Systolic blood 132 mm[Hg] 132 mm[Hg] [facility] Body temperature 37.738422 Kaylie 37.365324 Kaylie [facility] Respiratory rate 18 /min 18 /min [facility] Oxygen 99 % 99 % [place] saturation in Medical Ar[facility] blood Center by Pulse oximetry Heart rate 71 /min 71 /min [facility] Diastolic blood 75 mm[Hg] 75 mm[Hg] [facility] Systolic blood 131 mm[Hg] 131 mm[Hg] [facility] Body temperature 37.539208 Kaylie 37.330087 Kaylie [facility] Respiratory rate 18 /min 18 /min [facility] Oxygen 95 % 95 % [place] saturation in Medical Arter[facility] blood Center by Pulse oximetry Heart rate 104 /min 104 /min [facility] Diastolic blood 90 mm[Hg] 90 mm[Hg] [facility] pressure [facility] Center Systolic blood 154 mm[Hg] 154 mm[Hg] [facility] Oxygen 96 % 96 % [place] saturation in Medical Ar[facility] blood Center by Pulse oximetry Heart rate 100 /min 100 /min [facility] Diastolic blood 78 mm[Hg] 78 mm[Hg] [facility] Systolic blood 148 mm[Hg] 148 mm[Hg] [facility] Body temperature 37.400340 Kaylie 37.679998 Kaylie [facility] Respiratory rate 19 /min 19 /min [facility] Body temperature 36.112152 Kaylie 36.762083 Kaylie [facility] Respiratory rate 18 /min 18 /min [facility] Oxygen 97 % 97 % [facility] saturation in Medical Arterial blood Center by Pulse oximetry Heart rate 100 /min 100 /min [facility] Diastolic blood 84 mm[Hg] 84 mm[Hg] [facility] Systolic blood 145 mm[Hg] 145 mm[Hg] [facility] Body weight 104.521913 kg 104.251530 kg [facility] Body height 177.974418 cm 177.906506 cm [facility] Body mass index 33.0 kg/m2 33.0 kg/m2 [facility] (BMI) [Ratio] Medical Center Body temperature 36.664354 Kaylie 36.495343 Kaylie [facility] Respiratory rate 18 /min 18 /min [facility] Oxygen 95 % 95 % [facility] saturation in Medical Arterial blood Center by Pulse oximetry Heart rate 99 /min 99 /min [facility] Diastolic blood 60 mm[Hg] 60 mm[Hg] [facility] Systolic blood 112 mm[Hg] 112 mm[Hg] [facility] Body temperature 36.022129 Kaylie 36.588224 Kaylie [facility] Respiratory rate 18 /min 18 /min [facility] Oxygen 95 % 95 % [facility] [place] saturation in Medical Arter[facility] blood Center by Pulse oximetry Heart rate 89 /min 89 /min [facility] Diastolic blood 62 mm[Hg] 62 mm[Hg] [facility] pressure [facility] Center Systolic blood 102 mm[Hg] 102 mm[Hg] [facility] Body temperature 37.441948 Kaylie 37.698242 Kaylie [facility] Respiratory rate 17 /min 17 /min [facility] Oxygen 95 % 95 % [facility] [place] saturation in Medical Arterial blood Center by Pulse oximetry Heart rate 92 /min 92 /min [facility] Diastolic blood 66 mm[Hg] 66 mm[Hg] [facility] pressure [facility] Center Systolic blood 102 mm[Hg] 102 mm[Hg] [facility] Body temperature 36.156195 Kaylie 36.188408 Kaylie [facility] Respiratory rate 17 /min 17 /min [facility] Oxygen 93 % 93 % [facility] [place] saturation in Medical Arterial blood Center by Pulse oximetry Heart rate 69 /min 69 /min [facility] Diastolic blood 69 mm[Hg] 69 mm[Hg] [facility] pressure [facility] Center Systolic blood 125 mm[Hg] 125 mm[Hg] [facility] Body temperature 36.567114 Kaylie 36.180835 Kaylie [facility] Respiratory rate 18 /min 18 /min [facility] Oxygen 95 % 95 % [place] saturation in Medical Arterial blood Center by Pulse oximetry Heart rate 67 /min 67 /min [facility] Diastolic blood 68 mm[Hg] 68 mm[Hg] [facility] Systolic blood 125 mm[Hg] 125 mm[Hg] [facility] Body temperature 36.858646 Kaylie 36.662882 Kaylie [facility] Respiratory rate 17 /min 17 /min [facility] Oxygen 96 % 96 % [place] saturation in Medical Arterial blood Center by Pulse oximetry Heart rate 89 /min 89 /min [facility] Diastolic blood 88 mm[Hg] 88 mm[Hg] [facility] pressure [facility] Center Systolic blood 143 mm[Hg] 143 mm[Hg] [facility] Oxygen 98 % 98 % [place] saturation in Medical Arterial blood Center by Pulse oximetry Heart rate 75 /min 75 /min [facility] Diastolic blood 68 mm[Hg] 68 mm[Hg] [facility] pressure [facility] Center Systolic blood 129 mm[Hg] 129 mm[Hg] [facility] Body temperature 37.254647 Kaylie 37.852133 Kaylie [facility] Respiratory rate 17 /min 17 /min [facility] Respiratory rate 16 /min 16 /min [facility] Oxygen 93 % 93 % [place] saturation in Medical Arterial blood Center by Pulse oximetry Heart rate 92 /min 92 /min [facility] Diastolic blood 72 mm[Hg] 72 mm[Hg] [facility] pressure [facility] Center Systolic blood 143 mm[Hg] 143 mm[Hg] [facility] Body temperature 37.146228 Kaylie 37.014902 Kaylie [facility] Respiratory rate 18 /min 18 /min [facility] Oxygen 98 % 98 % [place] saturation in Medical Arterial blood Center by Pulse oximetry Heart rate 86 /min 86 /min [facility] Diastolic blood 57 mm[Hg] 57 mm[Hg] [facility] Systolic blood 119 mm[Hg] 119 mm[Hg] [facility] Body temperature 37.424595 Kaylie 37.031736 Kaylie [facility] Respiratory rate 16 /min 16 /min [facility] Oxygen 92 % 92 % [place] saturation in Medical Arterial blood Center by Pulse oximetry Heart rate 88 /min 88 /min [facility] Diastolic blood 56 mm[Hg] 56 mm[Hg] [facility] Systolic blood 90 mm[Hg] 90 mm[Hg] [facility] Body weight 90.585733 kg 90.909875 kg [facility] Body temperature 37.894873 Kaylie 37.282427 Kaylie [facility] Respiratory rate 19 /min 19 /min [facility] Oxygen 93 % 93 % [facility] [place] saturation in Medical Arterial blood Center by Pulse oximetry Heart rate 84 /min 84 /min [facility] Body height 177.481114 cm 177.129138 cm [facility] Diastolic blood 48 mm[Hg] 48 mm[Hg] [facility] Systolic blood 100 mm[Hg] 100 mm[Hg] [facility] Body mass index 28.4 kg/m2 28.4 kg/m2 [facility] (BMI) [Ratio] Medical Center Body temperature 37.651117 Kaylie 37.343847 Kaylie [facility] Respiratory rate 18 /min 18 /min [facility] Oxygen 98 % 98 % [place] saturation in Medical Arterial blood Center by Pulse oximetry Heart rate 89 /min 89 /min [facility] Diastolic blood 78 mm[Hg] 78 mm[Hg] [facility] Systolic blood 145 mm[Hg] 145 mm[Hg] [facility] Body temperature 37.875965 Kaylie 37.236570 Kaylie [facility] Respiratory rate 20 /min 20 /min [facility] Oxygen 95 % 95 % [place] saturation in Medical Arterial blood Center by Pulse oximetry Diastolic blood 90 mm[Hg] 90 mm[Hg] [facility] Systolic blood 154 mm[Hg] 154 mm[Hg] [facility] Body temperature 37.175906 Kaylie 37.206792 Kaylie [facility] Respiratory rate 20 /min 20 /min [facility] Oxygen 95 % 95 % [place] saturation in Medical Arterial blood Center by Pulse oximetry Heart rate 91 /min 91 /min [facility] Diastolic blood 90 mm[Hg] 90 mm[Hg] [facility] Systolic blood 142 mm[Hg] 142 mm[Hg] [facility] Body temperature 36.009778 Kaylie 36.907827 Kaylie [facility] Respiratory rate 20 /min 20 /min [facility] Oxygen 98 % 98 % [place] saturation in Medical Arterial blood Center by Pulse oximetry Heart rate 95 /min 95 /min [facility] Diastolic blood 61 mm[Hg] 61 mm[Hg] [facility] Systolic blood 102 mm[Hg] 102 mm[Hg] [facility] Body temperature 36.851767 Kaylie 36.997335 Kaylie [facility] Respiratory rate 19 /min 19 /min [facility] Oxygen 96 % 96 % [place] saturation in Medical Arterial blood Center by Pulse oximetry Heart rate 74 /min 74 /min [facility] Diastolic blood 74 mm[Hg] 74 mm[Hg] [facility] Systolic blood 132 mm[Hg] 132 mm[Hg] [facility] Body weight 79.730074 kg 79.012245 kg [facility] Heart rate 71 /min 71 /min [facility] Body height 182.396639 cm 182.804098 cm [facility] Body mass index 23.7 kg/m2 23.7 kg/m2 [facility] (BMI) [Ratio] [facility] Body temperature 37.212546 Kaylie 37.188485 Kaylie [facility] Respiratory rate 18 /min 18 /min [facility] Oxygen 96 % 96 % [place] saturation in Medical Arterial blood Center by Pulse oximetry Heart rate 87 /min 87 /min [facility] Diastolic blood 69 mm[Hg] 69 mm[Hg] [facility] Systolic blood 129 mm[Hg] 129 mm[Hg] [facility] Body temperature 36.132664 Kaylie 36.775017 Kaylie [facility] Respiratory rate 18 /min 18 /min [facility] Oxygen 95 % 95 % [place] saturation in Medical Arterial blood Center by Pulse oximetry Heart rate 87 /min 87 /min [facility] Diastolic blood 75 mm[Hg] 75 mm[Hg] [facility] Systolic blood 122 mm[Hg] 122 mm[Hg] [facility] Body temperature 37.280232 Kaylie 37.764184 Kaylie [facility] Respiratory rate 19 /min 19 /min [facility] Oxygen 95 % 95 % [place] saturation in Medical Arterial blood Center by Pulse oximetry Heart rate 90 /min 90 /min [facility] Diastolic blood 78 mm[Hg] 78 mm[Hg] [facility] Systolic blood 124 mm[Hg] 124 mm[Hg] [facility] Body temperature 37.191518 Kaylie 37.200170 Kaylie [facility] Respiratory rate 19 /min 19 /min [facility] Oxygen 95 % 95 % [place] saturation in Medical Arterial blood Center by Pulse oximetry Heart rate 85 /min 85 /min [facility] Diastolic blood 70 mm[Hg] 70 mm[Hg] [facility] pressure Medical Center Systolic blood 129 mm[Hg] 129 mm[Hg] [facility] Body weight 104.131011 kg 104.361381 kg [facility] Body temperature 37.440937 Kaylie 37.859555 Kaylie [facility] Respiratory rate 86 /min 86 /min [facility] Oxygen 95 % 95 % [place] saturation in Medical Arterial blood Center by Pulse oximetry Heart rate 86 /min 86 /min [facility] Body height 177.623843 cm 177.663296 cm [facility] Diastolic blood 74 mm[Hg] 74 mm[Hg] [facility] pressure Medical Center Systolic blood 137 mm[Hg] 137 mm[Hg] [facility] Body mass index 33.0 kg/m2 33.0 kg/m2 [facility] (BMI) [Ratio] [facility] Body temperature 36.304845 Kaylie 36.727620 Kaylie [facility] Respiratory rate 18 /min 18 /min [facility] Oxygen 92 % 92 % [place] saturation in Medical Arterial blood Center by Pulse oximetry Heart rate 100 /min 100 /min [facility] Diastolic blood 65 mm[Hg] 65 mm[Hg] [facility] Systolic blood 135 mm[Hg] 135 mm[Hg] [facility] Body temperature 37.765594 Kaylie 37.555236 Kaylie [facility] Respiratory rate 18 /min 18 /min [facility] Oxygen 95 % 95 % [place] saturation in Medical Arterial blood Center by Pulse oximetry Heart rate 97 /min 97 /min [facility] Diastolic blood 89 mm[Hg] 89 mm[Hg] [facility] pressure Medical Center Systolic blood 157 mm[Hg] 157 mm[Hg] [facility] Body temperature 37.277404 Kaylie 37.181113 Kaylie [facility] Respiratory rate 18 /min 18 /min [facility] Oxygen 95 % 95 % [place] saturation in Medical Arterial blood Center by Pulse oximetry Heart rate 91 /min 91 /min [facility] Diastolic blood 60 mm[Hg] 60 mm[Hg] [facility] Systolic blood 118 mm[Hg] 118 mm[Hg] [facility] Body weight 104.067240 kg 104.386995 kg [facility] Body temperature 36.079890 Kaylie 36.182767 Kaylie [facility] Respiratory rate 17 /min 17 /min [facility] Oxygen 95 % 95 % [place] saturation in Medical Arterial blood Center by Pulse oximetry Heart rate 89 /min 89 /min [facility] Body height 177.080307 cm 177.926967 cm [facility] Diastolic blood 88 mm[Hg] 88 mm[Hg] [facility] Systolic blood 127 mm[Hg] 127 mm[Hg] [facility] Body mass index 33.0 kg/m2 33.0 kg/m2 [facility] (BMI) [Ratio] Medical Center Body temperature 36.760783 Kaylie 36.381148 Kaylie [facility] Respiratory rate 17 /min 17 /min [facility] Oxygen 98 % 98 % [place] saturation in Medical Arterial blood Center by Pulse oximetry Heart rate 88 /min 88 /min [facility] Diastolic blood 82 mm[Hg] 82 mm[Hg] [facility] Systolic blood 138 mm[Hg] 138 mm[Hg] [facility] Body temperature 36.729879 Kaylie 36.038811 Kaylie [facility] Respiratory rate 18 /min 18 /min [facility] Oxygen 98 % 98 % [place] saturation in Medical Arterial blood Center by Pulse oximetry Heart rate 87 /min 87 /min [facility] Diastolic blood 84 mm[Hg] 84 mm[Hg] [facility] Systolic blood 145 mm[Hg] 145 mm[Hg] [facility] Body temperature 36.503707 Kaylie 36.696250 Kaylie [facility] Respiratory rate 18 /min 18 /min [facility] Oxygen 97 % 97 % [place] saturation in Medical Arterial blood Center by Pulse oximetry Heart rate 87 /min 87 /min [facility] Diastolic blood 97 mm[Hg] 97 mm[Hg] [facility] Systolic blood 154 mm[Hg] 154 mm[Hg] [facility] Body temperature 36.364567 Kaylie 36.758848 Kaylie [facility] Respiratory rate 18 /min 18 /min [facility] Oxygen 98 % 98 % [place] saturation in Medical Arterial blood Center by Pulse oximetry Heart rate 88 /min 88 /min [facility] Diastolic blood 78 mm[Hg] 78 mm[Hg] [facility] pressure Medical Center Systolic blood 145 mm[Hg] 145 mm[Hg] [facility] Body temperature 36.456547 Kaylie 36.089965 Kaylie [facility] Respiratory rate 18 /min 18 /min [facility] Oxygen 97 % 97 % [place] saturation in Medical Arterial blood Center by Pulse oximetry Heart rate 77 /min 77 /min [facility] Diastolic blood 71 mm[Hg] 71 mm[Hg] [facility] Systolic blood 126 mm[Hg] 126 mm[Hg] [facility] Body temperature 36.803361 Kaylie 36.608377 Kaylie [facility] Respiratory rate 17 /min 17 /min [facility] Oxygen 94 % 94 % [place] saturation in Medical Arterial blood Center by Pulse oximetry Heart rate 54 /min 54 /min [facility] Diastolic blood 64 mm[Hg] 64 mm[Hg] [facility] Systolic blood 113 mm[Hg] 113 mm[Hg] [facility] Respiratory rate 16 /min 16 /min [facility] Oxygen 97 % 97 % [place] saturation in Medical Arterial blood Center by Pulse oximetry Heart rate 52 /min 52 /min [facility] Diastolic blood 80 mm[Hg] 80 mm[Hg] [facility] pressure Medical Center Systolic blood 130 mm[Hg] 130 mm[Hg] [facility] Body temperature 36.728861 Kaylie 36.549784 Kaylie [facility] Respiratory rate 18 /min 18 /min [facility] Oxygen 96 % 96 % [place] saturation in Medical Arterial blood Center by Pulse oximetry Heart rate 96 /min 96 /min [facility] Diastolic blood 75 mm[Hg] 75 mm[Hg] [facility] pressure Medical Center Systolic blood 129 mm[Hg] 129 mm[Hg] [facility] Body temperature 37.967223 Kaylie 37.539075 Kaylie [facility] Respiratory rate 19 /min 19 /min [facility] Oxygen 96 % 96 % [place] saturation in Medical Arterial blood Center by Pulse oximetry Heart rate 98 /min 98 /min [facility] Diastolic blood 77 mm[Hg] 77 mm[Hg] [facility] pressure Medical Center Systolic blood 132 mm[Hg] 132 mm[Hg] [facility] Body temperature 36.594483 Kaylie 36.179218 Kaylie [facility] Respiratory rate 16 /min 16 /min [facility] Oxygen 95 % 95 % [place] saturation in Medical Arterial blood Center by Pulse oximetry Heart rate 95 /min 95 /min [facility] Diastolic blood 70 mm[Hg] 70 mm[Hg] [facility] Systolic blood 118 mm[Hg] 118 mm[Hg] [facility] Body temperature 36.776137 Kaylie 36.534367 Kaylie [facility] Respiratory rate 18 /min 18 /min [facility] Oxygen 96 % 96 % [place] saturation in Medical Arterial blood Center by Pulse oximetry Heart rate 100 /min 100 /min [facility] Diastolic blood 72 mm[Hg] 72 mm[Hg] [facility] Systolic blood 126 mm[Hg] 126 mm[Hg] [facility] Body temperature 36.552052 Kaylie 36.327665 Kaylie [facility] Respiratory rate 18 /min 18 /min [facility] Oxygen 97 % 97 % [place] saturation in Medical Arterial blood Center by Pulse oximetry Heart rate 88 /min 88 /min [facility] Diastolic blood 75 mm[Hg] 75 mm[Hg] [facility] Systolic blood 145 mm[Hg] 145 mm[Hg] [facility] Body temperature 36.014392 Kaylie 36.746024 Kaylie [facility] Respiratory rate 18 /min 18 /min [facility] Oxygen 97 % 97 % [place] saturation in Medical Arterial blood Center by Pulse oximetry Heart rate 88 /min 88 /min [facility] Diastolic blood 73 mm[Hg] 73 mm[Hg] [facility] Systolic blood 128 mm[Hg] 128 mm[Hg] [facility] Body temperature 36.853410 Kaylie 36.438398 Kaylie [facility] Respiratory rate 18 /min 18 /min [facility] Oxygen 96 % 96 % [place] saturation in Medical Arterial blood Center by Pulse oximetry Heart rate 95 /min 95 /min [facility] Diastolic blood 89 mm[Hg] 89 mm[Hg] [facility] Systolic blood 131 mm[Hg] 131 mm[Hg] [facility] Body temperature 37.599779 Kaylie 37.751633 Kaylie [facility] Respiratory rate 18 /min 18 /min [facility] Oxygen 98 % 98 % [place] saturation in Medical Arterial blood Center by Pulse oximetry Heart rate 89 /min 89 /min [facility] Diastolic blood 78 mm[Hg] 78 mm[Hg] [facility] Systolic blood 145 mm[Hg] 145 mm[Hg] [facility] Body temperature 36.609322 Kaylie 36.670893 Kaylie [facility] Respiratory rate 18 /min 18 /min [facility] Oxygen 97 % 97 % [place] saturation in Medical Arterial blood Center by Pulse oximetry Heart rate 92 /min 92 /min [facility] Diastolic blood 95 mm[Hg] 95 mm[Hg] [facility] Systolic blood 150 mm[Hg] 150 mm[Hg] [facility] Body temperature 36.512542 Kaylie 36.104944 Kaylie [facility] Respiratory rate 18 /min 18 /min [facility] Oxygen 95 % 95 % [place] saturation in Medical Arterial blood Center by Pulse oximetry Heart rate 88 /min 88 /min [facility] Diastolic blood 83 mm[Hg] 83 mm[Hg] [facility] Systolic blood 139 mm[Hg] 139 mm[Hg] [facility] Body temperature 36.281737 Kaylie 36.609692 Kaylie [facility] Respiratory rate 19 /min 19 /min [facility] Oxygen 97 % 97 % [place] saturation in Medical Arterial blood Center by Pulse oximetry Heart rate 87 /min 87 /min [facility] Diastolic blood 95 mm[Hg] 95 mm[Hg] [facility] Systolic blood 137 mm[Hg] 137 mm[Hg] [facility] Body temperature 36.002030 Kaylie 36.173592 Kaylie [facility] Respiratory rate 18 /min 18 /min [facility] Oxygen 97 % 97 % [place] saturation in Medical Arterial blood Center by Pulse oximetry Heart rate 82 /min 82 /min [facility] Diastolic blood 84 mm[Hg] 84 mm[Hg] [facility] Systolic blood 122 mm[Hg] 122 mm[Hg] [facility] Body temperature 36.655946 Kaylie 36.202841 Kaylie [facility] Respiratory rate 18 /min 18 /min [facility] Oxygen 98 % 98 % [place] saturation in Medical Arterial blood Center by Pulse oximetry Heart rate 89 /min 89 /min [facility] Diastolic blood 74 mm[Hg] 74 mm[Hg] [facility] Systolic blood 124 mm[Hg] 124 mm[Hg] [facility] Body temperature 36.684276 Kaylie 36.649110 Kaylie [facility] Respiratory rate 19 /min 19 /min [facility] Oxygen 98 % 98 % [place] saturation in Medical Arterial blood Center by Pulse oximetry Heart rate 85 /min 85 /min [facility] Diastolic blood 79 mm[Hg] 79 mm[Hg] [facility] Systolic blood 136 mm[Hg] 136 mm[Hg] [facility] Body temperature 37.136897 Kaylei 37.665747 Kaylie [facility] Respiratory rate 17 /min 17 /min [facility] Oxygen 97 % 97 % [place] saturation in Medical Arterial blood Center by Pulse oximetry Heart rate 77 /min 77 /min [facility] Diastolic blood 74 mm[Hg] 74 mm[Hg] [facility] Systolic blood 109 mm[Hg] 109 mm[Hg] [facility] Body temperature 36.420814 Kaylie 36.338593 Kaylie [facility] Respiratory rate 18 /min 18 /min [facility] Oxygen 96 % 96 % [place] saturation in Medical Arterial blood Center by Pulse oximetry Heart rate 82 /min 82 /min [facility] Diastolic blood 79 mm[Hg] 79 mm[Hg] [facility] Systolic blood 112 mm[Hg] 112 mm[Hg] [facility] Body weight 80.676878 kg 80.846905 kg [facility] Body height 172.388167 cm 172.600160 cm [facility] Body mass index 26.8 kg/m2 26.8 kg/m2 [facility] (BMI) [Ratio] [facility] Center Body weight 80.479542 kg 80.176534 kg [facility] Body height 172.096398 cm 172.501936 cm [facility] Body mass index 26.8 kg/m2 26.8 kg/m2 [facility] (BMI) [Ratio] [facility] Body temperature 36.116305 Kaylie 36.861087 Kaylie [facility] Respiratory rate 19 /min 19 /min [facility] Oxygen 100 % 100 % [place] saturation in Medical Arterial blood Center by Pulse oximetry Heart rate 85 /min 85 /min [facility] Diastolic blood 77 mm[Hg] 77 mm[Hg] [facility] Systolic blood 117 mm[Hg] 117 mm[Hg] [facility] Body temperature 37.302950 Kaylie 37.676599 Kaylie [facility] Respiratory rate 18 /min 18 /min [facility] Oxygen 95 % 95 % [place] saturation in Medical Arterial blood Center by Pulse oximetry Heart rate 76 /min 76 /min [facility] Diastolic blood 64 mm[Hg] 64 mm[Hg] [facility] Systolic blood 125 mm[Hg] 125 mm[Hg] [facility] Body temperature 37.823332 Kaylie 37.621025 Kaylie [facility] Respiratory rate 19 /min 19 /min [facility] Oxygen 95 % 95 % [place] saturation in Medical Arterial blood Center by Pulse oximetry Heart rate 77 /min 77 /min [facility] Diastolic blood 63 mm[Hg] 63 mm[Hg] [facility] Systolic blood 113 mm[Hg] 113 mm[Hg] [facility] Body weight 104.660434 kg 104.685365 kg [facility] Body temperature 36.082255 Kaylie 36.482979 Kaylie [facility] Respiratory rate 17 /min 17 /min [facility] Oxygen 92 % 92 % [place] saturation in Medical Arterial blood Center by Pulse oximetry Heart rate 84 /min 84 /min [facility] Body height 177.142941 cm 177.264785 cm [facility] Diastolic blood 83 mm[Hg] 83 mm[Hg] [facility] pressure [facility] Center Systolic blood 136 mm[Hg] 136 mm[Hg] [facility] Body mass index 33.0 kg/m2 33.0 kg/m2 [facility] (BMI) [Ratio] [facility] Body temperature 36.183640 Kaylie 36.469922 Kaylie [facility] Respiratory rate 19 /min 19 /min [facility] Oxygen 96 % 96 % [place] saturation in Medical Arterial blood Center by Pulse oximetry Heart rate 89 /min 89 /min [facility] Diastolic blood 70 mm[Hg] 70 mm[Hg] [facility] pressure [facility] Center Systolic blood 137 mm[Hg] 137 mm[Hg] [facility] Body temperature 36.912733 Kaylie 36.289051 Kaylie [facility] Respiratory rate 18 /min 18 /min [facility] Oxygen 99 % 99 % [place] saturation in Medical Arterial blood Center by Pulse oximetry Heart rate 78 /min 78 /min [facility] Diastolic blood 78 mm[Hg] 78 mm[Hg] [facility] Systolic blood 144 mm[Hg] 144 mm[Hg] [facility] Oxygen 99 % 99 % [place] saturation in Medical Arterial blood Center by Pulse oximetry Respiratory rate 18 /min 18 /min [facility] Oxygen 90 % 90 % [place] saturation in Medical Arterial blood Center by Pulse oximetry Heart rate 72 /min 72 /min [facility] Diastolic blood 66 mm[Hg] 66 mm[Hg] [facility] Center Systolic blood 144 mm[Hg] 144 mm[Hg] [facility] Body temperature 36.027011 Kaylie 36.754862 Kaylie [facility] Respiratory rate 18 /min 18 /min [facility] Heart rate 80 /min 80 /min [facility] Diastolic blood 82 mm[Hg] 82 mm[Hg] [facility] Systolic blood 141 mm[Hg] 141 mm[Hg] [facility] Body temperature 36.350114 Kaylie 36.180078 Kaylie [facility] Oxygen 92 % 92 % [place] saturation in Medical Arterial blood Center by Pulse oximetry Heart rate 79 /min 79 /min [facility] Diastolic blood 84 mm[Hg] 84 mm[Hg] [facility] Systolic blood 139 mm[Hg] 139 mm[Hg] [facility] Systolic blood 159 mm[Hg] 159 mm[Hg] [facility] Body mass index 33.0 kg/m2 33.0 kg/m2 [facility] (BMI) [Ratio] [facility] Center Body weight 104.340879 kg 104.995386 kg [facility] Body temperature 37.993696 Kaylie 37.774582 Kaylie [facility] Respiratory rate 18 /min 18 /min [facility] Oxygen 97 % 97 % [place] saturation in Medical Arterial blood Center by Pulse oximetry Heart rate 69 /min 69 /min [facility] Body height 177.616468 cm 177.118376 cm [facility] Diastolic blood 100 mm[Hg] 100 mm[Hg] [facility] Body temperature 36.926779 Kaylie 36.260397 Kaylie [facility] Respiratory rate 18 /min 18 /min [facility] Oxygen 97 % 97 % [place] saturation in Medical Arterial blood Center by Pulse oximetry Heart rate 88 /min 88 /min [facility] Diastolic blood 97 mm[Hg] 97 mm[Hg] [facility] Systolic blood 152 mm[Hg] 152 mm[Hg] [facility] Body temperature 37.188909 Kaylie 37.495091 Kaylie [facility] Respiratory rate 18 /min 18 /min [facility] Oxygen 97 % 97 % [place] saturation in Medical Arterial blood Center by Pulse oximetry Heart rate 87 /min 87 /min [facility] Diastolic blood 87 mm[Hg] 87 mm[Hg] [facility] Systolic blood 145 mm[Hg] 145 mm[Hg] [facility] Body temperature 36.018803 Kaylie 36.994591 Kaylie [facility] Respiratory rate 17 /min 17 /min [facility] Oxygen 94 % 94 % [facility] saturation in Medical Arterial blood Center by Pulse oximetry Heart rate 98 /min 98 /min [facility] Diastolic blood 68 mm[Hg] 68 mm[Hg] [facility] pressure Medical Center Systolic blood 144 mm[Hg] 144 mm[Hg] [facility] Body temperature 36.908435 Kaylie 36.552811 Kaylie [facility] Respiratory rate 18 /min 18 /min [facility] Oxygen 97 % 97 % [facility] [place] saturation in Medical Arterial blood Center by Pulse oximetry Heart rate 88 /min 88 /min [facility] Diastolic blood 72 mm[Hg] 72 mm[Hg] [facility] Systolic blood 144 mm[Hg] 144 mm[Hg] [facility] Body temperature 36.805562 Kaylie 36.354990 Kaylie [facility] Respiratory rate 19 /min 19 /min [facility] Heart rate 90 /min 90 /min [facility] Diastolic blood 74 mm[Hg] 74 mm[Hg] [facility] Systolic blood 121 mm[Hg] 121 mm[Hg] [facility] Body temperature 37.651903 Kaylie 37.728660 Kaylie [facility] Respiratory rate 17 /min 17 /min [facility] Oxygen 89 % 89 % [facility] saturation in Medical Arterial blood Center by Pulse oximetry Heart rate 110 /min 110 /min [facility] Diastolic blood 76 mm[Hg] 76 mm[Hg] [facility] Systolic blood 115 mm[Hg] 115 mm[Hg] [facility] Body temperature 36.920575 Kaylie 36.864350 Kaylie [facility] Respiratory rate 18 /min 18 /min [facility] Oxygen 100 % 100 % [facility] saturation in Medical Arterial blood Center by Pulse oximetry Heart rate 80 /min 80 /min [facility] Diastolic blood 78 mm[Hg] 78 mm[Hg] [facility] pressure Medical Center Systolic blood 128 mm[Hg] 128 mm[Hg] [facility] Body temperature 36.269455 Kaylie 36.134519 Kaylie [facility] Respiratory rate 19 /min 19 /min [facility] Oxygen 96 % 96 % [place] saturation in Medical Arterial blood Center by Pulse oximetry Heart rate 69 /min 69 /min [facility] Diastolic blood 78 mm[Hg] 78 mm[Hg] [facility] Systolic blood 128 mm[Hg] 128 mm[Hg] [facility] Body weight 95.028733 kg 95.727682 kg [facility] Body temperature 36.429342 Kaylie 36.515729 Kaylie [facility] Respiratory rate 18 /min 18 /min [facility] Oxygen 96 % 96 % [place] saturation in Medical Arterial blood Center by Pulse oximetry Heart rate 95 /min 95 /min [facility] Body height 182.178565 cm 182.498342 cm [facility] Diastolic blood 80 mm[Hg] 80 mm[Hg] [facility] Systolic blood 130 mm[Hg] 130 mm[Hg] [facility] Body mass index 28.4 kg/m2 28.4 kg/m2 [facility] (BMI) [Ratio] [facility] Center Body temperature 36.823217 Kaylie 36.216530 Kaylie [facility] Respiratory rate 16 /min 16 /min [facility] Oxygen 97 % 97 % [facility] [place] saturation in Medical Arterial blood Center by Pulse oximetry Heart rate 74 /min 74 /min [facility] Diastolic blood 77 mm[Hg] 77 mm[Hg] [facility] pressure [facility] Center Systolic blood 131 mm[Hg] 131 mm[Hg] [facility] Body temperature 36.616646 Kaylie 36.093146 Kaylie [facility] Respiratory rate 18 /min 18 /min [facility] Oxygen 99 % 99 % [place] saturation in Medical Arterial blood Center by Pulse oximetry Heart rate 82 /min 82 /min [facility] Diastolic blood 82 mm[Hg] 82 mm[Hg] [facility] Systolic blood 135 mm[Hg] 135 mm[Hg] [facility] Body weight 120.851228 kg 120.981230 kg [facility] Body temperature 36.888862 Kaylie 36.762756 Kaylie [facility] Respiratory rate 16 /min 16 /min [facility] Oxygen 96 % 96 % [facility] saturation in Medical Arterial blood Center by Pulse oximetry Heart rate 67 /min 67 /min [facility] Diastolic blood 67 mm[Hg] 67 mm[Hg] [facility] pressure [facility] Center Systolic blood 115 mm[Hg] 115 mm[Hg] [facility] Oxygen 90 % 90 % [facility] saturation in Medical Arterial blood Center by Pulse oximetry Heart rate 109 /min 109 /min [facility] Diastolic blood 62 mm[Hg] 62 mm[Hg] [facility] pressure [facility] Center Systolic blood 103 mm[Hg] 103 mm[Hg] [facility] Body temperature 37.199300 Kaylie 37.700135 Kaylie [facility] Respiratory rate 18 /min 18 /min [facility] Body weight 113.952994 kg 113.283481 kg [facility] Body temperature 36.970522 Kaylie 36.615112 Kaylie [facility] Respiratory rate 18 /min 18 /min [facility] Oxygen 96 % 96 % [facility] saturation in Medical Arterial blood Center by Pulse oximetry Heart rate 82 /min 82 /min [facility] Body height 177.473208 cm 177.097952 cm [facility] Diastolic blood 82 mm[Hg] 82 mm[Hg] [facility] pressure Medical Center Systolic blood 136 mm[Hg] 136 mm[Hg] [facility] Body mass index 35.8 kg/m2 35.8 kg/m2 [facility] (BMI) [Ratio] [facility] Center Body temperature 37.351998 Kaylie 37.844806 Kaylie [facility] Respiratory rate 18 /min 18 /min [facility] Oxygen 96 % 96 % [facility] saturation in Medical Arterial blood Center by Pulse oximetry Heart rate 88 /min 88 /min [facility] Diastolic blood 86 mm[Hg] 86 mm[Hg] [facility] pressure [facility] Center Systolic blood 118 mm[Hg] 118 mm[Hg] [facility] Body temperature 36.268529 Kaylie 36.840748 Kaylie [facility] Respiratory rate 18 /min 18 /min [facility] Oxygen 98 % 98 % [facility] [place] saturation in Medical Arterial blood Center by Pulse oximetry Heart rate 79 /min 79 /min [facility] Diastolic blood 78 mm[Hg] 78 mm[Hg] [facility] pressure [facility] Center Systolic blood 121 mm[Hg] 121 mm[Hg] [facility] Body temperature 36.505980 Kaylie 36.097043 Kaylie [facility] Respiratory rate 19 /min 19 /min [facility] Oxygen 96 % 96 % [facility] [place] saturation in Medical Arterial blood Center by Pulse oximetry Heart rate 81 /min 81 /min [facility] Diastolic blood 74 mm[Hg] 74 mm[Hg] [facility] pressure [facility] Center Systolic blood 118 mm[Hg] 118 mm[Hg] [facility] Body temperature 37.846890 Kaylie 37.190787 Kaylie [facility] Respiratory rate 18 /min 18 /min [facility] Oxygen 96 % 96 % [facility] [place] saturation in Medical Arterial blood Center by Pulse oximetry Heart rate 96 /min 96 /min [facility] Diastolic blood 59 mm[Hg] 59 mm[Hg] [facility] pressure [facility] Center Systolic blood 94 mm[Hg] 94 mm[Hg] [facility] Body temperature 37.542758 Kaylie 37.807917 Kaylie [facility] Respiratory rate 19 /min 19 /min [facility] Oxygen 95 % 95 % [facility] saturation in Medical Arterial blood Center by Pulse oximetry Heart rate 88 /min 88 /min [facility] Diastolic blood 53 mm[Hg] 53 mm[Hg] [facility] Systolic blood 93 mm[Hg] 93 mm[Hg] [facility] Body weight 74.515741 kg 74.662733 kg [facility] Body temperature 36.852591 Kaylie 36.017479 Kaylie [facility] Respiratory rate 18 /min 18 /min [facility] Oxygen 100 % 100 % [facility] saturation in Medical Arterial blood Center by Pulse oximetry Heart rate 94 /min 94 /min [facility] Body height 182.763688 cm 182.684079 cm [facility] Diastolic blood 59 mm[Hg] 59 mm[Hg] [facility] pressure [facility] Center Systolic blood 100 mm[Hg] 100 mm[Hg] [facility] Body mass index 22.3 kg/m2 22.3 kg/m2 [facility] (BMI) [Ratio] [facility] Center Body temperature 37.690360 Kaylie 37.978752 Kaylie [facility] Respiratory rate 18 /min 18 /min [facility] Oxygen 95 % 95 % [facility] [place] saturation in Medical Arterial blood Center by Pulse oximetry Heart rate 88 /min 88 /min [facility] Diastolic blood 78 mm[Hg] 78 mm[Hg] [facility] Systolic blood 132 mm[Hg] 132 mm[Hg] [facility] Body temperature 37.533278 Kaylie 37.734630 Kaylie [facility] Respiratory rate 17 /min 17 /min [facility] Oxygen 94 % 94 % [facility] [place] saturation in Medical Arterial blood Center by Pulse oximetry Heart rate 80 /min 80 /min [facility] Diastolic blood 84 mm[Hg] 84 mm[Hg] [facility] Systolic blood 134 mm[Hg] 134 mm[Hg] [facility] Body temperature 37.768664 Kaylie 37.385804 Kaylie [facility] Respiratory rate 19 /min 19 /min [facility] Oxygen 95 % 95 % [facility] [place] saturation in Medical Arterial blood Center by Pulse oximetry Heart rate 87 /min 87 /min [facility] Diastolic blood 75 mm[Hg] 75 mm[Hg] [facility] Systolic blood 137 mm[Hg] 137 mm[Hg] [facility] Body temperature 36.917396 Kaylie 36.245597 Kaylie [facility] Respiratory rate 18 /min 18 /min [facility] Oxygen 93 % 93 % [facility] [place] saturation in Medical Arterial blood Center by Pulse oximetry Heart rate 81 /min 81 /min [facility] Diastolic blood 77 mm[Hg] 77 mm[Hg] [facility] Systolic blood 137 mm[Hg] 137 mm[Hg] [facility] Body temperature 37.099617 Kaylie 37.192408 Kaylie [facility] Respiratory rate 19 /min 19 /min [facility] Oxygen 96 % 96 % [facility] [place] saturation in Medical Arterial blood Center by Pulse oximetry Heart rate 96 /min 96 /min [facility] Diastolic blood 75 mm[Hg] 75 mm[Hg] [facility] pressure [facility] Center Systolic blood 129 mm[Hg] 129 mm[Hg] [facility] Body temperature 37.084476 Kaylie 37.319098 Kaylie [facility] Respiratory rate 18 /min 18 /min [facility] Oxygen 97 % 97 % [facility] [place] saturation in Medical Arterial blood Center by Pulse oximetry Heart rate 99 /min 99 /min [facility] Diastolic blood 72 mm[Hg] 72 mm[Hg] [facility] pressure [facility] Center Systolic blood 131 mm[Hg] 131 mm[Hg] [facility] Body temperature 37.695107 Kaylie 37.029801 Kaylie [facility] Respiratory rate 19 /min 19 /min [facility] Oxygen 98 % 98 % [facility] [place] saturation in Medical Arterial blood Center by Pulse oximetry Heart rate 84 /min 84 /min [facility] Diastolic blood 85 mm[Hg] 85 mm[Hg] [facility] Systolic blood 131 mm[Hg] 131 mm[Hg] [facility] Body temperature 37.947549 Kaylie 37.841275 Kaylie [facility] Respiratory rate 18 /min 18 /min [facility] Oxygen 98 % 98 % [facility] [place] saturation in Medical Arterial blood Center by Pulse oximetry Heart rate 85 /min 85 /min [facility] Diastolic blood 88 mm[Hg] 88 mm[Hg] [facility] pressure [facility] Center Systolic blood 126 mm[Hg] 126 mm[Hg] [facility] Body temperature 37.467975 Kaylie 37.488957 Kaylie [facility] Respiratory rate 18 /min 18 /min [facility] Oxygen 98 % 98 % [place] saturation in Medical Arterial blood Center by Pulse oximetry Heart rate 90 /min 90 /min [facility] Diastolic blood 85 mm[Hg] 85 mm[Hg] [facility] pressure [facility] Center Systolic blood 139 mm[Hg] 139 mm[Hg] [facility] Body weight 85.029695 kg 85.540629 kg [facility] Body height 177.942820 cm 177.261397 cm [facility] Body mass index 26.8 kg/m2 26.8 kg/m2 [facility] (BMI) [Ratio] Medical Center Body temperature 36.412597 Kaylie 36.650247 Kaylie [facility] Respiratory rate 16 /min 16 /min [facility] Oxygen 96 % 96 % [facility] [place] saturation in Medical Arterial blood Center by Pulse oximetry Heart rate 71 /min 71 /min [facility] Diastolic blood 66 mm[Hg] 66 mm[Hg] [facility] Systolic blood 115 mm[Hg] 115 mm[Hg] [facility] Body temperature 36.484306 Kaylie 36.003815 Kaylie [facility] Respiratory rate 16 /min 16 /min [facility] Oxygen 96 % 96 % [place] saturation in Medical Arterial blood Center by Pulse oximetry Heart rate 75 /min 75 /min [facility] Diastolic blood 74 mm[Hg] 74 mm[Hg] [facility] Systolic blood 121 mm[Hg] 121 mm[Hg] [facility] Body temperature 36.515688 Kaylie 36.608551 Kaylie [facility] Respiratory rate 17 /min 17 /min [facility] Oxygen 98 % 98 % [facility] [place] saturation in Medical Arterial blood Center by Pulse oximetry Heart rate 84 /min 84 /min [facility] Diastolic blood 70 mm[Hg] 70 mm[Hg] [facility] Systolic blood 118 mm[Hg] 118 mm[Hg] [facility] Body temperature 37.456021 Kaylie 37.002323 Kaylie [facility] Respiratory rate 18 /min 18 /min [facility] Oxygen 97 % 97 % [facility] [place] saturation in Medical Arterial blood Center by Pulse oximetry Heart rate 86 /min 86 /min [facility] Diastolic blood 87 mm[Hg] 87 mm[Hg] [facility] Systolic blood 136 mm[Hg] 136 mm[Hg] [facility] Body temperature 36.947614 Kaylie 36.489252 Kaylie [facility] Respiratory rate 18 /min 18 /min [facility] Heart rate 89 /min 89 /min [facility] Diastolic blood 90 mm[Hg] 90 mm[Hg] [facility] pressure [facility] Center Systolic blood 134 mm[Hg] 134 mm[Hg] [facility] Body temperature 36.177384 Kaylie 36.167191 Kaylie [facility] Respiratory rate 18 /min 18 /min [facility] Heart rate 94 /min 94 /min [facility] Diastolic blood 83 mm[Hg] 83 mm[Hg] [facility] Systolic blood 136 mm[Hg] 136 mm[Hg] [facility] Body temperature 37.340722 Kaylie 37.331094 Kaylie [facility] Respiratory rate 20 /min 20 /min [facility] Heart rate 87 /min 87 /min [facility] Diastolic blood 73 mm[Hg] 73 mm[Hg] [facility] Systolic blood 132 mm[Hg] 132 mm[Hg] [facility] Body temperature 36.442801 Kaylie 36.665604 Kaylie [facility] Respiratory rate 20 /min 20 /min [facility] Heart rate 82 /min 82 /min [facility] Diastolic blood 81 mm[Hg] 81 mm[Hg] [facility] Systolic blood 123 mm[Hg] 123 mm[Hg] [facility] Oxygen 94 % 94 % [facility] saturation in Medical Arterial blood Center by Pulse oximetry Body temperature 36.974904 Kaylie 36.884761 Kaylie [facility] Respiratory rate 17 /min 17 /min [facility] Heart rate 91 /min 91 /min [facility] Diastolic blood 79 mm[Hg] 79 mm[Hg] [facility] Systolic blood 143 mm[Hg] 143 mm[Hg] [facility] Body weight 104.096412 kg 104.018592 kg [facility] Body temperature 36.308946 Kaylie 36.293862 Kaylie [facility] Respiratory rate 17 /min 17 /min [facility] Oxygen 98 % 98 % [facility] saturation in Medical Arterial blood Center by Pulse oximetry Heart rate 94 /min 94 /min [facility] Diastolic blood 74 mm[Hg] 74 mm[Hg] [facility] Systolic blood 106 mm[Hg] 106 mm[Hg] [facility] Body temperature 36.090551 Kaylie 36.444104 Kaylie [facility] Respiratory rate 17 /min 17 /min [facility] Oxygen 96 % 96 % [facility] [place] saturation in Medical Arterial blood Center by Pulse oximetry Heart rate 98 /min 98 /min [facility] Diastolic blood 76 mm[Hg] 76 mm[Hg] [facility] pressure [facility] Center Systolic blood 134 mm[Hg] 134 mm[Hg] [facility] Respiratory rate 18 /min 18 /min [facility] Oxygen 97 % 97 % [place] saturation in Medical Arterial blood Center by Pulse oximetry Heart rate 78 /min 78 /min [facility] Diastolic blood 68 mm[Hg] 68 mm[Hg] [facility] Systolic blood 126 mm[Hg] 126 mm[Hg] [facility] Body temperature 36.338870 Kaylie 36.054951 Kaylie [facility] Respiratory rate 18 /min 18 /min [facility] Oxygen 100 % 100 % [place] saturation in Medical Arterial blood Center by Pulse oximetry Heart rate 71 /min 71 /min [facility] Diastolic blood 66 mm[Hg] 66 mm[Hg] [facility] Systolic blood 125 mm[Hg] 125 mm[Hg] [facility] Body temperature 36.375074 Kaylie 36.516816 Kaylie [facility] Respiratory rate 18 /min 18 /min [facility] Oxygen 99 % 99 % [place] saturation in Medical Arterial blood Center by Pulse oximetry Heart rate 89 /min 89 /min [facility] Diastolic blood 81 mm[Hg] 81 mm[Hg] [facility] Systolic blood 132 mm[Hg] 132 mm[Hg] [facility] Body temperature 36.816548 Kaylie 36.978545 Kaylie [facility] Respiratory rate 17 /min 17 /min [facility] Oxygen 97 % 97 % [place] saturation in Medical Arterial blood Center by Pulse oximetry Heart rate 86 /min 86 /min [facility] Diastolic blood 50 mm[Hg] 50 mm[Hg] [facility] Systolic blood 80 mm[Hg] 80 mm[Hg] [facility] Body temperature 37.784044 Kaylie 37.058197 Kaylie [facility] Respiratory rate 18 /min 18 /min [facility] Oxygen 91 % 91 % [place] saturation in Medical Arterial blood Center by Pulse oximetry Heart rate 82 /min 82 /min [facility] Diastolic blood 56 mm[Hg] 56 mm[Hg] [facility] pressure [facility] Center Systolic blood 103 mm[Hg] 103 mm[Hg] [facility] Body weight 94.005626 kg 94.853537 kg [facility] Body temperature 37.399335 Kaylie 37.994925 Kaylie [facility] Respiratory rate 18 /min 18 /min [facility] Oxygen 88 % 88 % [facility] saturation in Medical Arterial blood Center by Pulse oximetry Heart rate 80 /min 80 /min [facility] Body height 177.539278 cm 177.196135 cm [facility] Diastolic blood 74 mm[Hg] 74 mm[Hg] [facility] Systolic blood 104 mm[Hg] 104 mm[Hg] [facility] Body mass index 29.8 kg/m2 29.8 kg/m2 [facility] (BMI) [Ratio] Medical Center Body temperature 36.139128 Kaylie 36.412097 Kaylie [facility] Respiratory rate 18 /min 18 /min [facility] Oxygen 97 % 97 % [place] saturation in Medical Arterial blood Center by Pulse oximetry Heart rate 98 /min 98 /min [facility] Diastolic blood 72 mm[Hg] 72 mm[Hg] [facility] Systolic blood 133 mm[Hg] 133 mm[Hg] [facility] Body temperature 36.038310 Kaylie 36.167754 Kaylie [facility] Respiratory rate 18 /min 18 /min [facility] Oxygen 98 % 98 % [place] saturation in Medical Arterial blood Center by Pulse oximetry Heart rate 83 /min 83 /min [facility] Diastolic blood 85 mm[Hg] 85 mm[Hg] [facility] Systolic blood 132 mm[Hg] 132 mm[Hg] [facility] Body temperature 36.887240 Kaylie 36.192697 Kaylie [facility] Respiratory rate 16 /min 16 /min [facility] Oxygen 96 % 96 % [facility] saturation in Medical Arterial blood Center by Pulse oximetry Heart rate 88 /min 88 /min [facility] Diastolic blood 70 mm[Hg] 70 mm[Hg] [facility] Systolic blood 120 mm[Hg] 120 mm[Hg] [facility] Body temperature 36.690071 Kaylie 36.050432 Kaylie [facility] Respiratory rate 19 /min 19 /min [facility] Oxygen 94 % 94 % [facility] saturation in Medical Arterial blood Center by Pulse oximetry Heart rate 96 /min 96 /min [facility] Diastolic blood 78 mm[Hg] 78 mm[Hg] [facility] Systolic blood 121 mm[Hg] 121 mm[Hg] [facility] Body temperature 36.880873 Kaylie 36.763657 Kaylie [facility] Respiratory rate 20 /min 20 /min [facility] Heart rate 85 /min 85 /min [facility] Diastolic blood 99 mm[Hg] 99 mm[Hg] [facility] Systolic blood 155 mm[Hg] 155 mm[Hg] [facility] Body temperature 37.091894 Kaylie 37.516859 Kaylie [facility] Respiratory rate 20 /min 20 /min [facility] Heart rate 75 /min 75 /min [facility] Diastolic blood 89 mm[Hg] 89 mm[Hg] [facility] [place] Systolic blood 175 mm[Hg] 175 mm[Hg] [facility] [place] Body temperature 36.172547 Kaylie 36.642391 Kaylie [facility] Respiratory rate 20 /min 20 /min [facility] Heart rate 86 /min 86 /min [facility] Diastolic blood 81 mm[Hg] 81 mm[Hg] [facility] [place] Systolic blood 138 mm[Hg] 138 mm[Hg] [facility] [place] Body temperature 36.355357 Kaylie 36.865371 Kaylie [facility] Respiratory rate 20 /min 20 /min [facility] Heart rate 82 /min 82 /min [facility] Diastolic blood 78 mm[Hg] 78 mm[Hg] [facility] Systolic blood 134 mm[Hg] 134 mm[Hg] [facility] Body weight 108.679049 kg 108.669998 kg [facility] Body temperature 36.153528 Kaylie 36.657432 Kaylie [facility] Respiratory rate 20 /min 20 /min [facility] Heart rate 88 /min 88 /min [facility] Body height 167.747645 cm 167.550770 cm [facility] Diastolic blood 99 mm[Hg] 99 mm[Hg] [facility] Systolic blood 156 mm[Hg] 156 mm[Hg] [facility] Body mass index 38.71 kg/m2 38.71 kg/m2 [facility] (BMI) [Ratio] [facility] Body temperature 37.900579 Kaylie 37.166973 Kaylie [facility] Respiratory rate 19 /min 19 /min [facility] Heart rate 83 /min 83 /min [facility] Diastolic blood 97 mm[Hg] 97 mm[Hg] [facility] [place] Systolic blood 153 mm[Hg] 153 mm[Hg] [facility] Body temperature 37.250435 Kaylie 37.411414 Kaylie [facility] Respiratory rate 19 /min 19 /min [facility] Heart rate 82 /min 82 /min [facility] Diastolic blood 115 mm[Hg] 115 mm[Hg] [facility] Systolic blood 176 mm[Hg] 176 mm[Hg] [facility] Body temperature 37.907912 Kaylie 37.089471 Kaylie [facility] Respiratory rate 20 /min 20 /min [facility] Heart rate 92 /min 92 /min [facility] Diastolic blood 93 mm[Hg] 93 mm[Hg] [facility] Systolic blood 163 mm[Hg] 163 mm[Hg] [facility] Oxygen 96 % 96 % [facility] saturation in Medical Arterial blood Center by Pulse oximetry Oxygen 92 % 92 % [facility] saturation in Medical Arterial blood Center by Pulse oximetry Oxygen 95 % 95 % [facility] saturation in Medical Arterial blood Center by Pulse oximetry Oxygen 95 % 95 % [facility] saturation in Medical Arterial blood Center by Pulse oximetry Oxygen 94 % 94 % [facility] saturation in Medical Arterial blood Center by Pulse oximetry ID Date Data Source [id number] 02/27/2020 10:28:08 PM EDT [facility] Name Value Range Interpretation Code Description Data Source(s) Body weight Measured 233 lb 233 lb [facility] Patient Treatment Plan of Care Planned Activity Planned Date Details Description Data Source (s) 0.9% NaCl IV 08/16/2019 05:17:42 PM [facility] 0.9% NaCl IV 08/16/2019 05:17:42 PM [facility]
--- NOTE | 2020-03-25 19:01 | PDOC ---
History of Present Illness - General Chief Complaint: Back Pain Stated Complaint: I am hungry Time Seen by Provider: 03/25/20 18:06 History Source: Patient Exam Limitations: Intoxication - History of Present Illness Initial Comments: 03/25/20 19:01 65-year-old male with history of alcohol abuse currently intoxicated brought in by EMS [place] Patient initially said to the EMS back pain but upon ED arrival requesting to eat. Patient denied back pain, chest pain, shortness of breath, headache, dizziness, or abdominal pain. Is this a multiple visit Asthma Patient?: No Timing/Duration: unsure Past History - Travel History Traveled outside of the country in the last 30 days: No Close contact w/someone who was outside of country & ill: No - Medical History Allergies/Adverse Reactions: Allergies Allergy/AdvReac Type Severity Reaction Status Date / Time Fish Containing Products Allergy Mild Swelling Verified 03/25/20 17:45 No Known Drug Allergies Allergy Verified 03/25/20 17:45 Home Medications: Ambulatory Orders NK [No Known Home Medication] 03/05/20 Anemia: No Asthma: No Cancer: Yes (mesothelioma lung cancer) Cardiac Disorders: No CVA: No COPD: No CHF: No DVT: No Dementia: No Diabetes: No Dialysis: No GI Disorders: No Disorders: No HTN: Yes (non compliant with meds.) Hypercholesterolemia: Yes Kidney Stones: No Liver Disease: Yes (ETOH abuse) Psychiatric Problems: Yes (ETOH abuse) Seizures: No Thyroid Disease: No Lung CA: Yes (Mesothelioma) - Surgical History Abdominal Surgery: No Appendectomy: No Cardiac Surgery: No Cholecystectomy: No Lung Surgery: No Neurologic Surgery: No Orthopedic Surgery: No - Reproductive History Testicular Surgery: No - Immunization History Td Vaccination: Yes TDAP Vaccination: Yes Immunization Up to Date: Yes - Psycho-Social/Smoking History Patient Lives Alone: Yes Lives with/in: lives alone Smoking Status: No Smoking History: Never smoked Have you smoked in the past 12 months: No Number of Cigarettes Smoked Daily: 0 If you are a former smoker, when did you quit?: 0 Cigars Per Day: 0 'Breaking Loose' booklet given: 09/22/17 - Substance Abuse Hx (Audit-C & DAST Scrn) How often the patient has a drink containing alcohol: 4 0r more times/wk Score: In Men: 4 or > Positive; In Women: 3 or > Positive: 4 Screen Result (Pos requires Nsg. Audit-10AR): Positive Review of Systems - Review of Systems Able to Perform ROS?: Yes Constitutional: No: Symptoms Reported HEENTM: No: Symptoms Reported Respiratory: No: Symptoms reported Cardiac (ROS): No: Symptoms Reported ABD/GI: No: Symptoms Reported : No: Symptoms Reported Musculoskeletal: No: Symptoms Reported Integumentary: No: Symptoms Reported Neurological: No: Symptoms reported Endocrine: No: Symptoms Reported Hematologic/Lymphatic: No: Symptoms Reported *Physical Exam - Vital Signs Last Vital Signs Temp Pulse Resp BP Pulse Ox 97.3 F L 79 18 116/65 99 03/25/20 17:43 03/25/20 17:43 03/25/20 17:43 03/25/20 17:43 03/25/20 17:43 - Physical Exam General Appearance: Yes: Disheveled HEENT: negative: Pale Conjunctivae Neck: positive: Supple Respiratory/Chest: positive: Lungs Clear, Normal Breath Sounds. negative: Respiratory Distress, Accessory Muscle Use Cardiovascular: positive: Regular Rhythm, Regular Rate. negative: Murmur Gastrointestinal/Abdominal: positive: Soft. negative: Tenderness Integumentary: positive: Normal Color, Dry, Moist Neurologic: positive: Motor Strength 5/5 (ambulatory) Medical Decision Making - Medical Decision Making 03/25/20 19:04 chief complaint: Patient brought in for public intoxication at the train station. Patient states that back pain in triage. When questioned patient states he always has back pain and he is hungry requesting something to eat. Patient otherwise has no physical complaints. Exam: Patient intoxicated disheveled but otherwise normal physical exam plan: Patient given sandwich and 3 juices along with 2 blankets by the electrical and instrument engineer - Discharge Information Problems reviewed: Yes Clinical Impression/Diagnosis: Alcohol intoxication, Intoxication Condition: Good Disposition: HOME - Follow up/Referral - Patient Discharge Instructions Additional Instructions: Avoid alcohol eat well-balanced meals throughout the day take daily vitamins consider rehab or other programs that promote abstinence - Post Discharge Activity
== END 2020-03-25 22:54 | disposition left against medical advice (07) ==
LOC: JER 17:32
DX: F10.920 Alcohol use, unspecified with intoxication, uncomplicated (principal)
CPT/HCPCS: 99284-25

== ENCOUNTER 2020-03-27 19:42 | Emergency (ER) | payer OTHER ==
--- NOTE | 2020-03-27 19:51 | PDOC ---
Rapid Medical Evaluation Chief Complaint: Blood Pressure Problem Time Seen by Provider: 03/27/20 19:49 Medical Evaluation: Allergies Allergy/AdvReac Type Severity Reaction Status Date / Time Fish Containing Products Allergy Mild Swelling Verified 03/25/20 17:45 No Known Drug Allergies Allergy Verified 03/25/20 17:45 03/27/20 19:49 65 year old male intoxicated complaining of back pain found to have BP of 76/33 at triage. PE: intoxicated male lying on stretcher uncooperative with exam Plan: Labs and IVF differed to ED provider Pt to precede to ED for further treatment and eval Discharge Disposition - Discharge Dispostion Last Admission D/C Date: 02/16/20 - Referrals - Patient Instructions - Post Discharge Activity
[2020-03-27] MEDS ORDERED: SODIUM CHLORIDE 0.9% 500 ML INFUS.BAG IV ONE (19:54)
[2020-03-27 19:55] VITALS: BMI 40.1
--- NOTE | 2020-03-27 20:05 | PDOC ---
History of Present Illness - General Chief Complaint: Blood Pressure Problem Stated Complaint: BACK PAIN/INTOXICATED Time Seen by Provider: 03/27/20 19:49 - History of Present Illness Initial Comments: Sunil De Leon is a 65yo man with a PMH of HTN, mesothelioma, back pain, and alcohol abuse, well known to the ED, who was BIBA with alcohol intoxication, found to be hypotensive to 70/30's on his triage evaluation. Repeat BP was 91/52. Mr De Leon denies any complaints other than chronic back pain. He states that he has been trying to "cut down" on his alcohol intake. Past History - Medical History Allergies/Adverse Reactions: Allergies Allergy/AdvReac Type Severity Reaction Status Date / Time Fish Containing Products Allergy Mild Swelling Verified 03/25/20 17:45 No Known Drug Allergies Allergy Verified 03/25/20 17:45 Home Medications: Ambulatory Orders NK [No Known Home Medication] 03/05/20 Anemia: No Asthma: No Cancer: Yes (mesothelioma lung cancer) Cardiac Disorders: No CVA: No COPD: No CHF: No DVT: No Dementia: No Diabetes: No Dialysis: No GI Disorders: No Disorders: No HTN: Yes (non compliant with meds.) Hypercholesterolemia: Yes Kidney Stones: No Liver Disease: Yes (ETOH abuse) Psychiatric Problems: Yes (ETOH abuse) Seizures: No Thyroid Disease: No Lung CA: Yes (Mesothelioma) - Surgical History Abdominal Surgery: No Appendectomy: No Cardiac Surgery: No Cholecystectomy: No Lung Surgery: No Neurologic Surgery: No Orthopedic Surgery: No - Reproductive History Testicular Surgery: No - Immunization History Td Vaccination: Yes TDAP Vaccination: Yes Immunization Up to Date: Yes - Psycho-Social/Smoking History Smoking Status: No Smoking History: Never smoked Have you smoked in the past 12 months: No Number of Cigarettes Smoked Daily: 0 If you are a former smoker, when did you quit?: 0 Cigars Per Day: 0 'Breaking Loose' booklet given: 09/22/17 - Substance Abuse Hx (Audit-C & DAST Scrn) How often the patient has a drink containing alcohol: Never Score: In Men: 4 or > Positive; In Women: 3 or > Positive: 0 Screen Result (Pos requires Nsg. Audit-10AR): Negative Review of Systems - Review of Systems Comments:: General: No fevers, no chills, no weight or appetite change, no malaise HEENT: No changes in vision, no changes in hearing, no congestion, no sore throat CV: No chest pain, no palpitations, no LE edema Pulm: No SOB, no cough, no wheezing GI: No nausea or vomiting, no change in bowel habits, no melena : No frequency, no urgency, no dysuria Musc: + back pain, no joint swelling, no recent injury Skin: No rash, no lesions, no erythema Endo: No excessive thirst, no heat/cold intolerance Heme: No unusual bruising or bleeding, no swollen glands Neuro: No syncope, no numbness/tingling, no focal weakness Vasc: No claudication Psych: No recent change in mood, no SI or HI *Physical Exam - Vital Signs Last Vital Signs Temp Pulse Resp BP Pulse Ox 97.7 F 92 H 22 H 76/33 L 98 03/27/20 19:45 03/27/20 19:45 03/27/20 19:45 03/27/20 19:45 03/27/20 19:45 - Physical Exam General: In no acute distress HEENT: Atraumatic, PERRL, EOMI, MMM, slurred speech. Cards: RRR, no murmur appreciated Pulm: Comfortable on room air Abd: Soft, nontender, nondistended Ext: 4+ BLE pitting edema. Moves all extremities Neuro: Awake, intoxicated w/ slurred speech. Motor/sensory grossly intact and symmetric, no focal deficits appreciated ED Treatment Course - LABORATORY CBC & Chemistry Diagram: 03/27/20 20:39 03/27/20 20:39 Medical Decision Making - Medical Decision Making 03/27/20 20:01 Sunil De Leon is a 65yo man with a PMH of HTN, mesothelioma, back pain, and alcohol abuse, well known to the ED, who was BIBA with alcohol intoxication, found to be hypotensive on arrival. - Repeat BP improved to 90/50's without intervention - Unclear cause of hypotension, possibly due to poor intake given chronic alcohol abuse. Pt denies any symptoms though is clearly intoxicated - CBC, CMP - IVF 03/27/20 23:06 - Labs reviewed. No significant change from baseline - Pt sleeping comfortably - Plan to discharge once clinically sober 03/28/20 05:32 - BP improved, now 108/62 - Will d/c Discussed with Dr True Higgins PGY3 Discharge - Discharge Information Problems reviewed: Yes Clinical Impression/Diagnosis: Intoxication, Alcohol abuse Chronic back pain Qualifiers: Back pain location: low back pain Back pain laterality: unspecified Sciatica presence: unspecified whether sciatica present Qualified Code(s): M54.5 - Low back pain Disposition: HOME - Admission No - Follow up/Referral Referrals: [facility] [place] [Provider Group] - Patient Discharge Instructions Additional Instructions: Discharge Instructions: You were seen in the emergency department for alcohol intoxication. Your blood tests did not show any concerning findings. You were given IV fluids for hydration. Please follow up with a regular doctor within the next week. [facility] It is very important that you stop drinking alcohol. Consider going to detox at [address] [place] [address] for assistance. Seek immediate care for worsening symptoms, difficulty breathing, chest pain, neurological symptoms (such as one-sided weakness/numbness, changes in your speech, confusion, facial droop) or for any other medical emergency. - Post Discharge Activity
--- OUTSIDE RECORDS SUMMARY | 2020-03-27 20:18 | XMS ---
:1955 Author Organization [facility] Care Team Providers Name Role Phone [facility] Unavailable Unavailable ED STAFF PHYSICIAN Unavailable Unavailable ED STAFF PHYSICIAN Unavailable Unavailable YAN VELASQUEZ Unavailable Unavailable WYATT Unavailable Unavailable ED STAFF PHYSICIAN Unavailable Unavailable ED STAFF PHYSICIAN Unavailable Unavailable ED STAFF PHYSICIAN Unavailable Unavailable PAULINO Ellis Unavailable Unavailable ED STAFF PHYSICIAN Unavailable Unavailable ED STAFF PHYSICIAN Unavailable Unavailable KELLI TUYET Unavailable Unavailable FAWILLIAMRICH LITZY C Unavailable Unavailable CLINE ALESSANDRO P Unavailable Unavailable GRAVES ADITHYA W Unavailable Unavailable [facility] Unavailable Unavailable ED STAFF PHYSICIAN Unavailable Unavailable CLEMENTE RAMOS Unavailable Unavailable VIANCA Unavailable Unavailable ADELA Ruiz Unavailable Unavailable MD DIPTI Unavailable Unavailable ED STAFF PHYSICIAN Unavailable Unavailable Alona Agrawal MD Unavailable Unavailable Alona Agrawal MD Unavailable Unavailable Alona Agrawal MD Unavailable Unavailable Alona Agrawal MD Unavailable Unavailable Alona Agrawal MD Unavailable Unavailable Alona Agrawal MD Unavailable Unavailable Alona Agrawal MD Unavailable Unavailable FAVIO MONROY Unavailable Unavailable ED STAFF PHYSICIAN Unavailable Unavailable MD NADER Unavailable Unavailable EMERGENCY SERVICE, X Unavailable Unavailable ZUNASSIGNED Unavailable Unavailable Re-disclosure Warning The records that [...] is protected by Article 27-F of the [facility] Public Health law. If you continue you may haveaccess to information: Regarding HIV / AIDS; Provided by facilities licensed or operated by the [facility] Office of Mental Health; or Provided by the [facility] Office for People With Developmental Disabilities. If such information is present, then the following [facility] mandated warning applies: This information has been [...] law may result in a fine or long-term sentence or both. A general authorization for the release of medical or other information is NOT sufficient authorization for further disclosure. Encounters Encounter Providers Location Date Indications Data Source(s ) Emergency Attender: ARIC Sage 03/26/2020 [facility] ADITHYA WAttender: 07:[facility] STAFF EDT - PHYSICIANAdmitter: 03/26/2020 ARIC HAJI 11:23:00 PM WReferrer: EDT ZUNASSIGNED Patient discharged. Emergency Attender: SON Sage 03/24/2020 05:26:00 PM [facility]: STAFF ED STAFF EDT - 03/24/[address] [facility] PHYSICIANAdmitter: SON 09:14:00 PM EDT ALESSANDRO Quintanilla: STAFF ED STAFF PHYSICIAN Patient discharged. Emergency Attender: SON Sage 03/23/2020 09:54:00 PM [facility]: STAFF ED STAFF EDT - 03/24/[address] [facility] PHYSICIANAdmitter: SON 05:54:00 AM EDT ALESSANDRO Nyr: ZUNASSIGNED Patient discharged. Emergency Attender: JOSE YOUNG STAFF H 03/23/2020 05:47:00 PM [facility] PHYSICIANAttender: STAFF ED EDT - 03/23/[address] [facility] STAFF PHYSICIANAdmitter: 09:35:00 PM EDT [place] [facility] STAFF PHYSICIANReferrer: ZUNASSIGNED Patient discharged. Emergency Attender: SON Sage 03/22/2020 06:46:00 PM [facility] PAttender: STAFF ED STAFF EDT - 03/23/[address] [facility] PHYSICIANAdmitter: SON 06:04:00 AM EDT ALESSANDRO PReferrer: ZUNASSIGNED Patient discharged. Outpatient Attender: [email or web address] [facility] 03/19/2020 06:09:28 PM I ([facility] EDT Collaborative) Patient admitted. Inpatient Attender: ZACK H-HAL6 03/16/2020 05:57:00 [facility] HENRIKHAttender: STAFF ED PM EDT - 03/20/[address] [facility] STAFF PHYSICIANAdmitter: 01:00:00 PM EDT ZACK Rodaserrer: ZACK COLEY Patient discharged. Emergency Attender: SON Sage 03/13/2020 10:53:00 PM Ishaanjoaquim Asherthaddeus: STAFF ED STAFF EDT - 03/14/[address] [facility] PHYSICIANAdmitter: SON 09:59:00 AM EDT ALESSANDRO PReferrer: ZUNASSIGNED Patient discharged. Emergency Attender: SON Sage 03/12/2020 11:27:00 PM [facility] Lbder: STAFF ED STAFF EDT - 03/13/[address] [facility] PHYSICIANAdmitter: SON 09:26:00 AM EDT ALESSANDRO PReferrer: ZUNASSIGNED Patient discharged. Emergency Attender: SON Sage 03/11/2020 07:35:00 PM Ishaan Karistender: STAFF ED STAFF EDT - 03/12/[address] [facility] PHYSICIANAdmitter: SON 06:22:00 AM EDT ALESSANDRO PReferrer: STAFF ED STAFF PHYSICIAN Patient discharged. Emergency Attender: ARIC Sage 03/07/2020 12:09:00 AM [facility] Karen: STAFF ED STAFF EDT - 03/07/[address] [facility] PHYSICIANAdmitter: ARIC 05:31:00 AM EDT ADITHYA WReferrer: ZUNASSIGNED Patient discharged. Emergency Attender: LITZY PALOMARES H-ER 03/05/2020 07:16:00 [facility] LITZY CAtthierno: STAFF ED PM EDT - 03/05/[address] [facility] STAFF PHYSICIANAdmitter: 08:52:00 PM EDT LITZY MCGHEE CReferrer: ZUNASSIGNED Patient discharged. Emergency Attender: ADELA Sage 03/03/2020 07:52:00 PM [facility] STAFF EDT - 03/04/[address] [facility] PHYSICIANAdmitter: ADELA 06:50:00 AM EDT MALLORY LReferrer: STAFF ED STAFF PHYSICIAN Patient discharged. Emergency Attender: JOSE ED STAFF 03/01/2020 12:31:00 PM [facility] PHYSICIANAttender: STAFF ED EDT - 03/01/[address] [facility] STAFF PHYSICIANAdmitter: 11:42:00 PM EDT [place] ED STAFF PHYSICIANReferrer: ZUNASSIGNED Patient discharged. Emergency Attender: ED STAFF H 02/29/2020 12:29:00 PM [facility] PHYSICIANAttender: STAFF ED EDT - 02/29/[address] [facility] STAFF PHYSICIANAdmitter: ED 06:19:00 PM EDT STAFF PHYSICIANReferrer: ZUNASSIGNED Patient discharged. Emergency Attender: LITZY MCGHEE 02/28/2020 08:42 :00 PM [facility] ED STAFF EDT - 02/29/[address] [facility] PHYSICIANAdmitter: LITZY 05:27:00 AM EDT JELANI Lauferrer: ZUNASSIGNED Patient discharged. Emergency Attender: JOSE ED STAFF 02/28/2020 11:14:00 AM [facility] PHYSICIANAttender: STAFF ED EDT - 02/28/[address] [facility] STAFF PHYSICIANAdmitter: 07:32:00 PM EDT [place] ED STAFF PHYSICIANReferrer: ZUNASSIGNED Patient discharged. Emergency Attender: ADELA Sage 02/27/2020 08:25:00 PM [facility]: STAFF ED STAFF EDT - 02/28/[address] [facility] PHYSICIANAdmitter: ADELA 07:04:00 AM EDT [place] LReferrer: ZUNASSIGNED Patient discharged. Inpatient Attender: LEWIS SALEH1D 02/16/2020 01:37:00 [facility] AYANA RESENDEZ PM EDT - [address] [place] [address] 10:27:00 PM EDT Patient discharged. Outpatient ST 02/16/2020 10:53:00 AM EDT - [address] [place] [address] 01:59:00 PM EDT Patient discharged. Emergency Attender: ADELA Sage 02/09/2020 09:43:00 PM [facility]: STAFF ED STAFF EDT - 02/10/[address] [facility] PHYSICIANAdmitter: ADELA 06:48:00 AM EDT [place] LReferrer: ZUNASSIGNED Patient discharged. Emergency Attender: STAFF ED STAFF H 02/09/2020 02:45:00 AM [facility] PHYSICIAN EDT - 02/09/2020 06:55:00 Center AM EDT Patient discharged. Emergency Attender: LITZY Sage 02/04/2020 11:24 :00 AM [facility]: STAFF ED STAFF EDT - 02/04/[address] [facility] PHYSICIANAdmitter: LITZY 03:35:00 PM EDT JELANI Horowitz Patient discharged. Emergency Attender: ED STAFF H 01/25/2020 06:06:00 PM [facility] PHYSICIANAttender: STAFF ED EDT - 01/26/[address] [facility] STAFF PHYSICIANAdmitter: ED 06:12:00 AM EDT STAFF PHYSICIAN Patient discharged. Emergency Attender: ARIC Sage 01/24/2020 08:18:00 PM [facility] Karen: STAFF ED STAFF EDT - 01/25/[address] [facility] PHYSICIANAdmitter: ARIC 06:04:00 AM EDT ADITHYA Duenas Patient discharged. Emergency Attender: JOSE ED STAFF H 01/24/2020 01:40:00 PM [facility] PHYSICIANAttender: STAFF ED EDT - 01/24/[address] [facility] STAFF PHYSICIANAdmitter: 05:56:00 PM EDT JOSE ED STAFF PHYSICIAN Patient discharged. Emergency Attender: STAFF ED STAFF H 01/20/2020 03:33:00 PM [facility] Medical PHYSICIAN EDT - 01/20/2020 06:41:00 Center PM EDT Patient discharged. Emergency Attender: JOSE ED STAFF H 01/19/2020 11:13:00 AM [facility] PHYSICIANAttender: STAFF ED EDT - 01/19/[address] [facility] STAFF PHYSICIANAdmitter: 03:48:00 PM EDT [place] ED STAFF PHYSICIAN Patient discharged. Emergency Attender: SON Sage 01/18/2020 09:44:00 PM [facility] PAttenthaddeus: STAFF ED STAFF EDT - 01/19/[address] [facility] PHYSICIANAdmitter: SON 06:28:00 AM EDT ALESSANDRO Lackey Patient discharged. Outpatient Attender: [id number] [facility] 01/14/2020 01:13:05 PM I ([facility] EDT Collaborative) Patient admitted. Emergency Attender: JOSE ED STAFF 01/06/2020 01:03:00 PM [facility] PHYSICIANAttender: STAFF ED EDT - 01/06/[address] [facility] STAFF PHYSICIANAdmitter: 09:00:00 PM EDT [place] ED STAFF PHYSICIAN Patient discharged. Emergency Attender: STAFF ED STAFF 01/05/2020 08:46:00 PM [facility] Medical PHYSICIAN EDT - 01/06/2020 09:01:00 Center AM EDT Patient discharged. Emergency Attender: JOSE ED STAFF 01/05/2020 02:24:00 PM [facility] PHYSICIANAttender: STAFF ED EDT - 01/05/[address] [facility] STAFF PHYSICIANAdmitter: 05:02:00 PM EDT [place] ED STAFF PHYSICIAN Patient discharged. Emergency Attender: STAFF ED STAFF 01/03/2020 08:50:00 PM [facility] Medical PHYSICIAN EDT - 01/04/2020 06:32:00 Center AM EDT Patient discharged. Emergency Attender: ARIC Sage 12/30/2019 08:35:00 PM [facility] Karen: STAFF ED STAFF EDT - 12/31/[address] [facility] PHYSICIANAdmitter: ARIC 06:54:00 AM EDT ADITHYA W Patient discharged. Emergency Attender: ARIC Sage 12/30/2019 04:36:00 PM [facility] Karen: STAFF ED STAFF EDT - 12/31/[address] [facility] PHYSICIANAdmitter: ARIC 06:55:00 AM EDT ADITHYA W Patient discharged. Emergency Attender: LITZY Sage 12/29/2019 03:42 :00 PM [facility] CAttender: STAFF ED STAFF EDT - 12/29/[address] [facility] PHYSICIANAdmitter: LITZY 08:14:00 PM EDT JELANI Horowitz Patient discharged. Emergency Attender: STAFF ED STAFF 12/28/2019 10:09:00 PM [facility] PHYSICIAN EDT - 12/29/2019 06:04:00 Center AM EDT Patient discharged. Emergency Attender: ARIC Sage 12/28/2019 01:13:00 AM [facility] Karen: STAFF ED STAFF EDT - 12/28/[address] [facility] PHYSICIANAdmitter: ARIC 09:44:00 AM EDT ADITHYA W Patient discharged. Emergency Attender: LITZY Sage 12/27/2019 06:29 :00 PM [facility] CAtthierno: ARIC HAJI EDT - 12/27/[address] [facility] WAttender: STAFF ED STAFF 10:06:00 PM EDT PHYSICIANAdmitter: LITZY Horowitz Patient discharged. Emergency Attender: JOSE ED STAFF 12/27/2019 12:06:00 PM [facility] PHYSICIANAttender: LITZY EDT - 12/27/[address] [facility] JELANI MCGHEE CAttender: 10:05:00 PM EDT STAFF ED STAFF PHYSICIANAdmitter: JOSE ED STAFF PHYSICIAN Patient discharged. Emergency Attender: ARIC Sage- 12/24/2019 11:12:00 [facility] Karen: STAFF ED STAFF PM EDT - 12/25/[address] [facility] PHYSICIANAdmitter: ARIC 05:53:00 AM EDT ADITHYA W Patient discharged. Emergency Attender: LTIZY Sage 12/22/2019 04:41 :00 PM [facility] ST[facility]FF ED STAFF EDT - 12/23/[address] [facility] PHYSICIANAdmitter: LITZY 06:19:00 AM EDT JELANI Horowitz Patient discharged. Emergency Attender: LITZY Sage 12/20/2019 08:52 :00 PM [facility] CAtthierno: STAFF ED STAFF EDT - 12/20/[address] [facility] PHYSICIANAdmitter: LITZY 11:29:00 PM EDT JELANI Horowitz Patient discharged. Emergency Attender: ARIC Sage 12/18/2019 05:15:00 AM [facility] WAttender: STAFF ED STAFF EDT - 12/18/[address] [facility] PHYSICIANAdmitter: ARIC 06:04:00 AM EDT ADITHYA W Patient discharged. Emergency Attender: LITZY MCGHEE 12/17/2019 04:35 :00 PM [facility]: STAFF ED STAFF EDT - 12/18/[address] [facility] PHYSICIANAdmitter: LITZY 03:16:00 AM EDT JELANI MCGHEE CReferrer: STAFF ED STAFF PHYSICIAN Patient discharged. Emergency Attender: ARIC HAJI 12/16/2019 07:15:00 PM [facility] Karen: STAFF ED STAFF EDT - 12/17/[address] [facility] PHYSICIANAdmitter: ARIC 06:39:00 AM EDT ADITHYA Reeveser: STAFF ED STAFF PHYSICIAN Patient discharged. Emergency Attender: ED STAFF 12/16/2019 02:10:00 PM [facility] PHYSICIANAttender: STAFF ED EDT - 12/16/[address] [facility] STAFF PHYSICIANAdmitter: ED 05:38:00 PM EDT STAFF PHYSICIAN Patient discharged. Emergency Attender: JOSE ED STAFF 12/14/2019 02:52:00 PM [facility] PHYSICIANAttender: ED STAFF EDT - 12/14/[address] [facility] PHYSICIANAttender: STAFF ED 09:24:00 PM EDT STAFF PHYSICIANAdmitter: JOSE ED STAFF PHYSICIAN Patient discharged. Emergency Attender: FRANCISCA ED STAFF 12/10/2019 06:39:00 PM [facility] PHYSICIANAttender: ARIC EDT - 12/10/[address] [facility] ADITHYA Jones: STAFF ED 09:42:00 PM EDT STAFF PHYSICIANAdmitter: FRANCISCA ED STAFF PHYSICIAN Patient discharged. Emergency Attender: ED STAFF 12/09/2019 02:37:00 PM [facility] PHYSICIANAttender: STAFF ED EDT - 12/09/[address] [facility] STAFF PHYSICIANAdmitter: ED 04:39:00 PM EDT STAFF PHYSICIAN Patient discharged. Emergency Attender: ARIC HAJI 12/08/2019 10:33:00 PM [facility] WAtthierno: STAFF ED STAFF EDT - 12/09/[address] [facility] PHYSICIANAdmitter: ARIC 06:03:00 AM EDT ADITHYA W Patient discharged. Emergency Attender: LITZY MCGHEE 12/08/2019 01:04 :00 PM [facility] Vane: STAFF ED STAFF EDT - 12/08/[address] [facility] PHYSICIANAdmitter: LITZY 04:42:00 PM EDT NAVIDMITALI LITZY Horowitz Patient discharged. Emergency Attender: STAFF ED STAFF 12/08/2019 01:26:00 AM [facility] Medical PHYSICIAN EDT - 12/08/2019 03:22:00 [place] AM EDT Patient discharged. Emergency Attender: ED STAFF 12/07/2019 02:19:00 PM [facility] PHYSICIANAttender: STAFF ED EDT - 12/07/[address] [facility] STAFF PHYSICIANAdmitter: ED 06:57:00 PM EDT STAFF PHYSICIAN Patient discharged. Emergency Attender: LITZY MCGHEE 12/06/2019 06:10 :00 PM [facility] Isidrothierno: STAFF ED STAFF EDT - 12/07/[address] [facility] PHYSICIANAdmitter: LITZY 12:43:00 AM EDT JELANI Horowitz Patient discharged. Emergency Attender: ARIC Sage 12/04/2019 08:59:00 PM [facility] Karen: STAFF ED STAFF EDT - 12/05/[address] [facility] PHYSICIANAdmitter: ARIC 05:48:00 AM EDT ADITHYA LERMAefkendraer: STAFF ED STAFF PHYSICIAN Patient discharged. Emergency Attender: ARIC Sage 12/03/2019 08:01:00 PM [facility] Karen: STAFF ED STAFF EDT - 12/03/[address] [facility] PHYSICIANAdmitter: ARIC 10:34:00 PM EDT ADITHYA Duenas Patient discharged. Emergency Attender: ED STAFF 12/03/2019 01:49:00 PM [facility] PHYSICIANAttender: STAFF ED EDT - 12/03/[address] [facility] STAFF PHYSICIANAdmitter: ED 05:15:00 PM EDT STAFF PHYSICIANReferrer: STAFF ED STAFF PHYSICIAN Patient discharged. Emergency Attender: STAFF ED STAFF 12/02/2019 08:09:00 PM [facility] Medical PHYSICIAN EDT - 12/03/2019 07:06:00 Center AM EDT Patient discharged. Emergency Attender: ED STAFF H 11/30/2019 04:27:00 PM [facility] PHYSICIANAttender: STAFF ED EDT - 11/30/[address] [facility] STAFF PHYSICIANAdmitter: ED 11:51:00 PM EDT STAFF PHYSICIAN Patient discharged. Emergency Attender: STAFF ED STAFF 11/30/2019 03:04:00 AM [facility] Medical PHYSICIAN EDT - 11/30/2019 07:04:00 [place] AM EDT Patient discharged. Emergency Attender: LITZY MCGHEE 11/29/2019 04:39 :00 PM [facility] CAtsaint alphonsus eaglethaddeus: STAFF ED STAFF EDT - 11/29/[address] [facility] PHYSICIANAdmitter: LITZY 10:06:00 PM EDT JELANI Horowitz Patient discharged. Emergency Attender: ARIC HAJI 11/25/2019 09:53:00 PM [facility] STAFF ED STAFF EDT - 11/26/[address] [facility] PHYSICIANAdmitter: ARIC 06:08:00 AM EDT ADITHYA Duenas Patient discharged. Emergency Attender: ED STAFF 11/25/2019 12:05:00 PM [facility] PHYSICIANAttender: Josue EDT - [facility]/2019 [facility] MDAtt[facility]: STAFF 03:49:00 PM EDT ED STAFF PHYSICIANAdmitter: ED STAFF PHYSICIAN Patient discharged. Emergency Attender: STAFF ED STAFF 11/24/2019 10:37:00 PM [facility] PHYSICIAN EDT - 11/25/2019 01:28:00 [place] AM EDT Patient discharged. Emergency Attender: JOSE ED STAFF 11/24/2019 02:04:00 PM [facility] PHYSICIANAttender: LITZY EDT - 11/24/[address] [facility] JELANI Felixtenthaddeus: 05:13:00 PM EDT STAFF ED STAFF PHYSICIANAdmitter: JOSE ED STAFF PHYSICIAN Patient discharged. Emergency Attender: ED STAFF 11/23/2019 05:20:00 PM [facility] PHYSICIANAttender: STAFF ED EDT - 11/24/[address] [facility] STAFF PHYSICIANAdmitter: ED 05:19:00 AM EDT STAFF PHYSICIAN Patient discharged. Emergency Attender: LITZY MCGHEE 11/22/2019 08:30 :00 PM [facility] Vane: STAFF ED STAFF EDT - 11/23/[address] [facility] PHYSICIANAdmitter: LITZY 06:02:00 AM EDT JELANI Horowitz Patient discharged. Emergency Attender: LITZY MCGHEE 11/22/2019 01:37 :00 PM [facility] STAFF ED STAFF EDT - 11/22/[address] [facility] PHYSICIANAdmitter: LITZY 05:57:00 PM EDT JELANI Horowitz Patient discharged. Emergency Attender: LITZY SHOEMAKERMITALI LITZY H 11/20/2019 03:54 :00 PM [facility] CAtthierno: STAFF ED STAFF EDT - 11/20/[address] [facility] PHYSICIANAdmitter: LITZY 07:33:00 PM EDT JELANI Horowitz Patient discharged. Emergency Attender: ARIC Sage 11/18/2019 01:25:00 PM [facility] Karen: STAFF ED STAFF EDT - 11/19/[address] [facility] PHYSICIANAdmitter: ARIC 01:40:00 AM EDT ADITHYA Duenas Patient discharged. Emergency Attender: STAFF ED STAFF 11/16/2019 08:42:00 PM [facility] PHYSICIAN EDT - 11/17/2019 05:38:00 Center AM EDT Patient discharged. Emergency Attender: ED STAFF 11/16/2019 01:46:00 PM [facility] PHYSICIANAttender: ED STAFF EDT - 11/16/[address] [facility] PHYSICIANAttender: STAFF ED 05:41:00 PM EDT STAFF PHYSICIANAdmitter: ED STAFF PHYSICIAN Patient discharged. Emergency Attender: JOSE ED STAFF 11/10/2019 04:25:00 PM [facility] PHYSICIANAttender: STAFF ED EDT - 11/10/[address] [facility] STAFF PHYSICIANAdmitter: 08:35:00 PM EDT [place] ED STAFF PHYSICIAN Patient discharged. Emergency Attender: JOSE ED STAFF 11/08/2019 02:38:00 PM [facility] PHYSICIANAttender: STAFF ED EDT - 11/08/[address] [facility] STAFF PHYSICIANAdmitter: 10:15:00 PM EDT [place] ED STAFF PHYSICIAN Patient discharged. Emergency Attender: ARIC Sage 11/07/2019 10:18:00 PM [facility] Karen: STAFF ED STAFF EDT - 11/14/[address] [facility] PHYSICIANAdmitter: ARIC 12:48:00 AM EDT ADITHYA Tyler: STAFF ED STAFF PHYSICIAN Patient discharged. Emergency Attender: ED STAFF H 11/05/2019 01:32:00 PM [facility] PHYSICIANAttender: STAFF ED EDT - 11/05/[address] [facility] STAFF PHYSICIANAdmitter: ED 07:57:00 PM EDT STAFF PHYSICIAN Patient discharged. Emergency Attender: STAFF ED STAFF H 11/03/2019 09:29:00 PM [facility] PHYSICIAN EDT - 11/03/2019 11:21:00 Center PM EDT Patient discharged. Emergency Attender: ED STAFF H 11/02/2019 07:07:00 PM [facility] PHYSICIANAttender: STAFF ED EDT - 11/03/[address] [facility] STAFF PHYSICIANAdmitter: ED 12:39:00 AM EDT STAFF PHYSICIAN Patient discharged. Emergency Attender: JOSE ED STAFF H 11/01/2019 02:09:00 PM [facility] PHYSICIANAttender: STAFF ED EDT - 11/01/[address] [facility] STAFF PHYSICIANAdmitter: 09:18:00 PM EDT [place] ED STAFF PHYSICIAN Patient discharged. Emergency Attender: ED STAFF H 10/31/2019 06:02:00 PM [facility] PHYSICIANAttender: ED STAFF EDT - 10/31/[address] [facility] PHYSICIANAttender: STAFF ED 10:38:00 PM EDT STAFF PHYSICIANAdmitter: ED STAFF PHYSICIAN Patient discharged. Emergency Attender: ARIC Sage 10/30/2019 02:58:00 PM [facility] STAFF ED STAFF EDT - 10/31/[address] [facility] PHYSICIANAdmitter: ARIC 02:24:00 AM EDT ADITHYA Duenas Patient discharged. Emergency Attender: LTIZY Sage 10/28/2019 08:51 :00 PM [facility] Isidrothierno: STAFF ED STAFF EDT - 10/29/[address] [facility] PHYSICIANAdmitter: LITZY 03:06:00 AM EDT JELANI Horowitz Patient discharged. Emergency Attender: LITZY Sage 10/27/2019 06:36 :00 PM [facility] Vane: STAFF ED STAFF EDT - 10/27/[address] [facility] PHYSICIANAdmitter: LITZY 10:23:00 PM EDT JELANI Horowitz Patient discharged. Emergency Attender: ARIC Sage 10/22/2019 06:02:00 PM [facility] Karen: PAULINO NEGRETE EDT - 10/22/[address] [facility] KAttenthaddeus: STAFF ED STAFF 10:48:00 PM EDT PHYSICIANAdmitter: ARIC Tyler: STAFF ED STAFF PHYSICIAN Patient discharged. Emergency Attender: ED STAFF H 10/22/2019 01:07:00 AM [facility] PHYSICIANAttender: STAFF ED EDT - 10/22/[address] [facility] STAFF PHYSICIANAdmitter: ED 06:20:00 AM EDT STAFF PHYSICIAN Patient discharged. Emergency Attender: JOSE ED STAFF 10/21/2019 03:39:00 PM [facility] PHYSICIANAttender: STAFF ED EDT - 10/22/[address] [facility] STAFF PHYSICIANAdmitter: 12:14:00 AM EDT JOSE ED STAFF PHYSICIAN Patient discharged. Emergency Attender: STAFF ED STAFF H 10/21/2019 12:18:00 AM [facility] PHYSICIAN EDT - 10/21/2019 07:03:00 [place] AM EDT Patient discharged. Emergency Attender: ED STAFF 10/19/2019 08:03:00 PM [facility] PHYSICIANAttender: STAFF ED EDT - 10/20/[address] [facility] STAFF PHYSICIANAdmitter: ED 06:09:00 AM EDT STAFF PHYSICIAN Patient discharged. Emergency Attender: ED STAFF 10/18/2019 06:11:00 AM [facility] PHYSICIANAttender: STAFF ED EDT - 10/18/[address] [facility] STAFF PHYSICIANAdmitter: ED 09:49:00 PM EDT STAFF PHYSICIAN Patient discharged. Emergency Attender: ED STAFF 10/17/2019 08:24:00 PM [facility] PHYSICIANAttender: GRAVES EDT - 10/17/[address] [facility] ADITHYA Jones: STAFF ED 11:42:00 PM EDT STAFF PHYSICIANAdmitter: ED STAFF PHYSICIAN Patient discharged. Emergency Attender: JOSE ED STAFF 10/15/2019 01:27:00 PM [facility] PHYSICIANAttender: STAFF ED EDT - 10/15/[address] [facility] STAFF PHYSICIANAdmitter: 03:49:00 PM EDT [place] ED STAFF PHYSICIAN Patient discharged. Emergency Attender: LITZY MCGHEE H 10/13/2019 07:22 :00 PM [facility] CAttender: STAFF ED STAFF EDT - 10/13/[address] [facility] PHYSICIANAdmitter: LITZY 10:35:00 PM EDT JELANI Horowitz Patient discharged. Emergency Attender: JOSE ED STAFF H 10/13/2019 07:53:00 AM [facility] PHYSICIANAttender: STAFF ED EDT - 10/13/[address] [facility] STAFF PHYSICIANAdmitter: 06:44:00 PM EDT [place] ED STAFF PHYSICIAN Patient discharged. Emergency Attender: STAFF ED STAFF H 10/12/2019 12:49:00 AM [facility] Medical PHYSICIAN EDT - 10/12/2019 02:10:00 Center AM EDT Patient discharged. Emergency Attender: LITZY Sage 10/11/2019 02:37 :00 PM [facility] CAttender: STAFF ED STAFF EDT - 10/11/[address] [facility] PHYSICIANAdmitter: LITZY 08:39:00 PM EDT JELANI Horowitz Patient discharged. Outpatient Attender: [id number] [facility] 10/10/2019 07:26:38 AM [facility] ([facility] EDT [facility]) Patient admitted. Outpatient Attender: [id number] [facility] 10/10/2019 07:26:35 AM [facility] ([facility] EDT [facility]) Patient admitted. Emergency Attender: JOSE ED STAFF 10/06/2019 09:24:00 AM [facility] PHYSICIANAttender: STAFF ED EDT - 10/06/[address] [facility] STAFF PHYSICIANAdmitter: 11:20:00 AM EDT [place] ED STAFF PHYSICIAN Patient discharged. Emergency Attender: STAFF ED STAFF 10/05/2019 08:44:00 PM [facility] PHYSICIAN EDT - 10/06/2019 12:39:00 Center AM EDT Patient discharged. Inpatient Attender: TUYET PEREIRA H-ED 09/17/2019 11:20:00 [facility] TRISTANAttender: STAFF ED PM EDT - 09/19/[address] [facility] STAFF PHYSICIANAdmitter: 07:49:00 AM EDT TUYET LUTZTANReferrer: TUYET BENZ Patient discharged. Emergency Attender: Josue Sage 09/17/2019 05:08: 00 PM [facility] MDAttender: STAFF ED STAFF EDT - 09/18/[address] [facility] PHYSICIANAdmitter: Josue 04:33:00 AM EDT [facility] KAPLANeferrer: STAFF ED STAFF PHYSICIAN Patient discharged. Emergency Attender: STAFF ED STAFF H 09/14/2019 08:44:00 PM [facility] Medical PHYSICIAN EDT - 09/15/2019 09:09:00 Center AM EDT Patient discharged. Emergency Attender: LITZY Sage 09/13/2019 07:30 :00 PM [facility] Vane: STAFF ED STAFF EDT - 09/14/[address] [facility] PHYSICIANAdmitter: LITZY 08:43:00 AM EDT JELANI Horowitz Patient discharged. Emergency Attender: JOSE ED STAFF 09/13/2019 08:56:00 AM [facility] PHYSICIANAttender: STAFF ED EDT - 09/13/[address] [facility] STAFF PHYSICIANAdmitter: 01:13:00 PM EDT JOSE ED STAFF PHYSICIAN Patient discharged. Emergency Attender: STAFF ED STAFF 09/12/2019 08:31:00 PM [facility] PHYSICIAN EDT - 09/13/2019 07:32:00 Center AM EDT Patient discharged. Emergency Attender: ARIC Sage 09/11/2019 08:42:00 PM [facility] Karen: STAFF ED STAFF EDT - 09/12/[address] [facility] PHYSICIANAdmitter: ARIC 06:36:00 PM EDT ADITHYA Reeveser: STAFF ED STAFF PHYSICIAN Patient discharged. Emergency Attender: LITZY Sage 09/11/2019 04:08 :00 PM [facility] Isidrothierno: STAFF ED STAFF EDT - 09/11/[address] [facility] PHYSICIANAdmitter: LITZY 06:54:00 PM EDT JELANI Horowitz Patient discharged. Emergency Attender: ARIC Sage 09/10/2019 04:50:00 PM [facility] Karen: STAFF ED STAFF EDT - 09/11/[address] [facility] PHYSICIANAdmitter: ARIC 08:33:00 PM EDT ADITHYA Reeveser: STAFF ED STAFF PHYSICIAN Patient discharged. Emergency Attender: ARIC Sage 09/08/2019 08:13:00 PM [facility] Karen: STAFF ED STAFF EDT - 09/09/[address] [facility] PHYSICIANAdmitter: ARIC 08:40:00 AM EDT ADITHYA Duenas Patient discharged. Emergency Attender: STAFF ED STAFF 09/07/2019 10:06:00 PM [facility] PHYSICIAN EDT - 09/08/2019 08:44:00 Center AM EDT Patient discharged. Emergency Attender: JOSE ED STAFF 09/05/2019 07:50:00 AM [facility] PHYSICIANAttender: ED STAFF EDT - 09/07/[address] [facility] PHYSICIANAttender: STAFF ED 06:44:00 AM EDT STAFF PHYSICIANAdmitter: JOSE ED STAFF PHYSICIAN Patient discharged. Emergency Attender: STAFF ED STAFF 09/04/2019 10:01:00 PM [facility] PHYSICIANReferrer: STAFF ED EDT - 09/05/[address] [facility] STAFF PHYSICIAN 08:15:00 AM EDT Patient discharged. Emergency Attender: LITZY Sage 09/04/2019 02:54 :00 PM [facility] CAttenthaddeus: STAFF ED STAFF EDT - 09/04/[address] [facility] PHYSICIANAdmitter: LITZY 08:59:00 PM EDT JELANI MCGHEE CReferrer: STAFF ED STAFF PHYSICIAN Patient discharged. Emergency Attender: STAFF ED STAFF 09/03/2019 08:39:00 PM [facility] PHYSICIANReferrer: STAFF ED EDT - 09/04/[address] [facility] STAFF PHYSICIAN 06:55:00 AM EDT Patient discharged. Emergency Attender: LITZY Sage 09/02/2019 04:49 :00 PM [facility] CAttenthaddeus: ARIC HAJI EDT - 09/03/[address] [facility] WAttenthaddeus: STAFF ED STAFF 12:12:00 AM EDT PHYSICIANAdmitter: LITZY Horowitz Patient discharged. Outpatient Attender: [id number] [facility] 09/02/2019 07:16:17 AM I ([facility] EDT [facility]) Patient admitted. Emergency Attender: ARIC Sage 09/01/2019 10:38:00 PM [facility] Karen: STAFF ED STAFF EDT - 09/01/[address] [facility] PHYSICIANAdmitter: ARIC 11:35:00 PM EDT ADITHYA W Patient discharged. Emergency Attender: JOSE ED STAFF 09/01/2019 12:48:00 PM [facility] PHYSICIANAttender: LITZY EDT - 09/01/[address] [facility] JELANI MCGHEE CAttender: 09:37:00 PM EDT STAFF ED STAFF PHYSICIANAdmitter: JOSE ED STAFF PHYSICIAN Patient discharged. Emergency Attender: ARIC Sage 08/31/2019 07:31:00 PM [facility] WAtthierno: STAFF ED STAFF EDT - 09/01/[address] [facility] PHYSICIANAdmitter: ARIC 04:06:00 AM EDT ADITHYA W Patient discharged. Emergency Attender: ED STAFF 08/29/2019 08:10:00 PM [facility] PHYSICIANAttender: STAFF ED EDT - 08/30/[address] [facility] STAFF PHYSICIANAdmitter: ED 08:39:00 AM EDT STAFF PHYSICIAN Patient discharged. Emergency Attender: ED STAFF 08/28/2019 08:21:00 PM [facility] PHYSICIANAttender: STAFF ED EDT - 08/29/[address] [facility] STAFF PHYSICIANAdmitter: ED 08:53:00 AM EDT STAFF PHYSICIANReferrer: STAFF ED STAFF PHYSICIAN Patient discharged. Emergency Attender: ARIC HAJI 08/27/2019 08:45:00 PM [facility] WAttender: STAFF ED STAFF EDT - 08/28/[address] [facility] PHYSICIANAdmitter: ARIC 01:42:00 AM EDT ADITHYA Tyler: STAFF ED STAFF PHYSICIAN Patient discharged. Emergency Attender: ED STAFF 08/27/2019 05:26:00 AM [facility] PHYSICIANAttender: ED STAFF EDT - 08/27/[address] [facility] PHYSICIANAttender: STAFF ED 04:41:00 PM EDT STAFF PHYSICIANAdmitter: ED STAFF PHYSICIAN Patient discharged. Emergency Attender: FRANCISCA ED STAFF 08/25/2019 04:54:00 PM [facility] PHYSICIANAttender: LITZY EDT - 08/25/[address] [facility] JELANI Felixtenthaddeus: 07:49:00 PM EDT STAFF ED STAFF PHYSICIANAdmitter: [facility] ED STAFF PHYSICIAN Patient discharged. Emergency Attender: FRANCISCA ED STAFF 08/24/2019 06:38:00 PM [facility] PHYSICIANAttender: STAFF ED EDT - 08/25/[address] [facility] STAFF PHYSICIANAdmitter: 05:59:00 AM EDT [facility] ED STAFF PHYSICIAN Patient discharged. Emergency Attender: FRANCISCA ED STAFF 08/23/2019 06:12:00 PM [facility] PHYSICIANAttender: STAFF ED EDT - 08/24/[address] [facility] STAFF PHYSICIAN 04:50:00 AM EDT Patient discharged. Emergency Attender: STAFF ED STAFF 08/22/2019 08:59:00 PM [facility] Medical PHYSICIAN EDT - 08/23/2019 08:48:00 Center AM EDT Patient discharged. Emergency Attender: STAFF ED STAFF H 08/21/2019 09:12:00 PM [facility] PHYSICIANReferrer: STAFF ED EDT - 08/22/[address] [facility] STAFF PHYSICIAN 06:01:00 AM EDT Patient discharged. Emergency Attender: ED STAFF H 08/20/2019 03:19:00 PM [facility] PHYSICIANAttender: STAFF ED EST - 08/20/[address] [facility] STAFF PHYSICIANAdmitter: ED 11:42:00 PM EST STAFF PHYSICIAN Patient discharged. Emergency Attender: ARIC Sage 08/19/2019 07:15:00 PM [facility] ST[facility] ED STAFF EST - 08/20/[address] [facility] PHYSICIANAdmitter: GRAVES 03:04:00 AM EST ADITHYA W Patient discharged. Emergency Attender: ED STAFF H 08/19/2019 03:56:00 PM [facility] PHYSICIANAttender: STAFF ED EST - 08/19/[address] [facility] STAFF PHYSICIANAdmitter: ED 06:55:00 PM EST STAFF PHYSICIAN Patient discharged. Emergency Attender: LITZY Sage 08/18/2019 03:54 :00 PM [facility] ST[facility]FF ED STAFF EST - 08/18/[address] [facility] PHYSICIANAdmitter: LITZY 10:23:00 PM EST JELANI Horowitz Patient discharged. Emergency Attender: ED STAFF H 08/17/2019 02:27:00 PM [facility] PHYSICIANAttender: STAFF ED EST - 08/18/[address] [facility] STAFF PHYSICIANAdmitter: ED 08:39:00 AM EST STAFF PHYSICIAN Patient discharged. Emergency Attender: STAFF ED STAFF H 08/17/2019 02:43:00 AM [facility] Medical PHYSICIAN EST - 08/17/2019 09:44:00 Center AM EST Patient discharged. Emergency Attender: EVA 08/16/2019 03:33:00 NORMA [facility] RICHARDAttender: EMERGENCY PM EST Health Care SERVICE, XAdmitter: EVA [facility] Emergency Attender: LITZY Sage 08/12/2019 05:29 :00 PM [facility] FRANCISCA ED STAFF EST - 08/13/[address] [facility] PHYSICIANAttender: STAFF ED 05:43:00 AM EST STAFF PHYSICIANAdmitter: LITZY Horowitz Patient discharged. Emergency Attender: LITZY Sage 08/11/2019 05:01 :00 PM [facility] STAFF ED STAFF EST - 08/12/[address] [facility] PHYSICIANAdmitter: LITZY 12:41:00 AM EST JELANI Horowitz Patient discharged. Emergency Attender: ARIC Sage 08/10/2019 10:37:00 PM [facility] Karen: STAFF ED STAFF [email or web address] 08/11/[address] [facility] PHYSICIANAdmitter: ARIC 01:01:00 AM EST ADITHYA W Patient discharged. Emergency Attender: AGUILAR ED STAFF 08/10/2019 04:09:00 PM [facility] PHYSICIANAttender: STAFF ED [facility] - 08/10/[address] [facility] STAFF PHYSICIANAdmitter: AGUILAR 11:02:00 PM EST ED STAFF PHYSICIAN Patient discharged. Emergency Attender: ARIC Sage 08/09/2019 07:25:00 PM [facility] Agustínthaddeus: STAFF ED STAFF [email or web address]] 08/10/[address] [facility] PHYSICIANAdmitter: ARIC 09:58:00 AM EST ADITHYA W Patient discharged. Emergency Attender: LEONEL ED STAFF 08/08/2019 04:28:00 PM [facility] PHYSICIANAttender: STAFF ED [email or web address]] 08/09/[address] [facility] STAFF PHYSICIANAdmitter: LEONEL 10:32:00 AM EST ED STAFF PHYSICIAN Patient discharged. Emergency Attender: ARIC Sage 08/06/2019 03:52:00 PM [facility] ED STAFF [email or web address] 08/07/[address] [facility] PHYSICIANAttender: STAFF ED 12:38:00 AM EST STAFF PHYSICIANAdmitter: ARIC Duenas Patient discharged. Emergency Attender: LEONEL ED STAFF 08/01/2019 06:41:00 PM [facility] PHYSICIANAttender: STAFF ED [email or web address]] 08/02/[address] [facility] STAFF PHYSICIANAdmitter: LEONEL 08:35:00 AM EST ED STAFF PHYSICIAN Patient discharged. Emergency Attender: STAFF ED STAFF 07/31/2019 11:25:00 PM [facility] PHYSICIAN [email or web address] 08/01/2019 08:56:00 Center AM EST Patient discharged. Emergency Attender: LITZY MCGHEE 07/31/2019 05:39 :00 PM [facility] STAFF ED STAFF [email or web address]] 07/31/[address] [facility] PHYSICIANAdmitter: LITZY 07:38:00 PM EST JELANI MCGHEE CReferrer: STAFF ED STAFF PHYSICIAN Patient discharged. Emergency Attender: STAFF ED STAFF 07/30/2019 07:01:00 PM [facility] PHYSICIANReferrer: STAFF ED EST - 07/31/[address] [facility] STAFF PHYSICIAN 04:29:00 PM EST Patient discharged. Emergency Attender: STAFF ED STAFF 07/29/2019 09:45:00 PM [facility] Medical PHYSICIAN EST - 07/30/2019 07:10:00 Center AM EST Patient discharged. Emergency Attender: LITZY MCGHEE 07/28/2019 02:39 :00 PM [facility] CAttender: ARIC HAJI EST - 07/29/[address] [facility] WAttender: STAFF ED STAFF 01:25:00 AM EST PHYSICIANAdmitter: LITZY Horowitz Patient discharged. Emergency Attender: JOSE ED STAFF 07/28/2019 03:16:00 AM [facility] PHYSICIANAttender: STAFF ED EST - 07/28/[address] [facility] STAFF PHYSICIANAdmitter: 10:10:00 AM EST [place] ED STAFF PHYSICIAN Patient discharged. Emergency Attender: ED STAFF 07/27/2019 03:24:00 PM [facility] PHYSICIANAttender: STAFF ED EST - 07/27/[address] [facility] STAFF PHYSICIANAdmitter: ED 10:57:00 PM EST STAFF PHYSICIAN Patient discharged. Emergency Attender: JOSE ED STAFF 07/26/2019 02:36:00 PM [facility] PHYSICIANAttender: STAFF ED EST - 07/26/[address] [facility] STAFF PHYSICIANAdmitter: 06:36:00 PM EST [place] ED STAFF PHYSICIAN Patient discharged. Emergency Attender: ARIC HAJI 07/22/2019 12:21:00 AM [facility] Karen: STAFF ED STAFF EST - 07/22/[address] [facility] PHYSICIANAdmitter: GRAVES 01:50:00 AM EST ADITHYA W Patient discharged. Emergency Attender: FRANCISCA ED STAFF 07/17/2019 07:28:00 PM [facility] PHYSICIANAttender: STAFF ED EST - 07/17/[address] [facility] STAFF PHYSICIANAdmitter: 10:56:00 PM EST [facility] ED STAFF PHYSICIANReferrer: STAFF ED STAFF PHYSICIAN Patient discharged. Emergency Attender: FRANCISCA ED STAFF 07/16/2019 03:07:00 PM [facility] PHYSICIANAttender: STAFF ED EST - 07/17/[address] [facility] STAFF PHYSICIANAdmitter: 03:19:00 AM EST FRANCIS[place] ED STAFF PHYSICIAN Patient discharged. Emergency Attender: ARIC HAJI H-ER 07/15/2019 01:02:00 [facility] Karen: STAFF ED STAFF AM [facility] - 07/15/[address] [facility] PHYSICIANAdmitter: ARIC 03:10:00 AM EST ADITHYA W Patient discharged. Emergency Attender: JOSE ED STAFF 07/14/2019 07:29:00 AM [facility] PHYSICIANAttender: STAFF ED [facility] - 07/14/[address] [facility] STAFF PHYSICIANAdmitter: 12:19:00 PM EST [place] ED STAFF PHYSICIAN Patient discharged. Emergency Attender: ARIC HAJI 07/13/2019 05:30:00 PM [facility] Karen: STAFF ED STAFF [facility] - 07/14/[address] [facility] PHYSICIANAdmitter: ARIC 05:30:00 AM EST ADITHYA W Patient discharged. Emergency Attender: STAFF ED STAFF 07/13/2019 03:03:00 AM [facility] PHYSICIAN [facility] - 07/13/2019 10:05:00 Center AM EST Patient discharged. Emergency Attender: STAFF ED STAFF 07/12/2019 09:37:00 PM [facility] PHYSICIAN [facility] - 07/13/2019 12:34:00 Center AM EST Patient discharged. Emergency Attender: JOSE ED STAFF 07/12/2019 01:34:00 PM [facility] PHYSICIANAttender: STAFF ED [facility] - 07/12/[address] [facility] STAFF PHYSICIANAdmitter: 11:37:00 PM EST [place] ED STAFF PHYSICIAN Patient discharged. Emergency Attender: STAFF ED STAFF 07/09/2019 10:13:00 PM [facility] PHYSICIANReferrer: STAFF ED [facility] - 07/09/[address] [facility] STAFF PHYSICIAN 11:20:00 PM EST Patient discharged. Emergency Attender: ARIC HAJI 07/09/2019 11:25:00 AM [facility] WAtthierno: STAFF ED STAFF [facility] - 07/09/[address] [facility] PHYSICIANAdmitter: ARIC 03:37:00 PM EST ADITHYA W Patient discharged. Emergency Attender: STAFF ED STAFF 07/08/2019 08:14:00 PM [facility] PHYSICIAN EST - 07/09/2019 07:23:00 Center AM EST Patient discharged. Emergency Attender: LITZY MCGHEE 07/07/2019 07:49 :00 PM [facility] CAttender: STAFF ED STAFF [facility] - 07/07/[address] [facility] PHYSICIANAdmitter: LITZY 09:07:00 PM EST JELANI LITZY Carlos Manuel Patient discharged. Emergency Attender: JOSE ED STAFF 07/07/2019 12:23:00 PM [facility] PHYSICIANAttender: STAFF ED [facility] - 07/07/[address] [facility] STAFF PHYSICIANAdmitter: 04:56:00 PM EST JOSE ED STAFF PHYSICIAN Patient discharged. Emergency Attender: Josue Sage 07/06/2019 06:30: 00 PM [facility] MDAttender: STAFF ED STAFF [facility] - 07/07/[address] [facility] PHYSICIANAdmitter: Josue 02:40:00 AM EST [facility] [place] Patient discharged. Emergency Attender: STAFF ED STAFF 07/05/2019 10:18:00 PM [facility] PHYSICIAN [facility] - 07/06/2019 07:08:00 Center AM EST Patient discharged. Emergency Attender: ED STAFF 07/04/2019 05:56:00 PM [facility] PHYSICIANAttender: ED STAFF [email or web address] 07/05/[address] [facility] PHYSICIANAttender: STAFF ED 09:10:00 AM EST STAFF PHYSICIANAdmitter: ED STAFF PHYSICIANReferrer: STAFF ED STAFF PHYSICIAN Patient discharged. Emergency Attender: STAFF ED STAFF 07/03/2019 10:40:00 PM [facility] PHYSICIANReferrer: STAFF ED [email or web address] 07/04/[address] [facility] STAFF PHYSICIAN 06:45:00 AM EST Patient discharged. Emergency Attender: ED STAFF 07/02/2019 06:17:00 PM [facility] PHYSICIANAttender: STAFF ED [facility] - 07/02/[address] [facility] STAFF PHYSICIANAdmitter: ED 08:42:00 PM EST STAFF PHYSICIANReferrer: STAFF ED STAFF PHYSICIAN Patient discharged. Emergency Attender: ARIC Sage 07/01/2019 11:08:00 PM [facility] WAtthierno: STAFF ED STAFF [facility] - 07/02/[address] [facility] PHYSICIANAdmitter: ARIC 04:14:00 AM EST ADITHYA W Patient discharged. Emergency Attender: ARIC Sage 07/01/2019 07:08:00 PM [facility] WAtthierno: STAFF ED STAFF [email or web address] 07/01/[address] [facility] PHYSICIANAdmitter: RAIC 09:50:00 PM EST ADITHYA W Patient discharged. Emergency Attender: STAFF ED STAFF 06/29/2019 09:17:00 PM [facility] PHYSICIAN EST - 06/30/2019 04:12:00 Center AM EST Patient discharged. Emergency Attender: STAFF ED STAFF 06/29/2019 03:02:00 AM [facility] PHYSICIAN EST - 06/29/2019 09:25:00 Center AM EST Patient discharged. Emergency Attender: STAFF ED STAFF 06/28/2019 09:08:00 PM [facility] PHYSICIAN EST - 06/28/2019 11:20:00 [place] PM EST Patient discharged. Emergency Attender: LITZY MCGHEE 06/28/2019 12:59 :00 PM [facility] STAFF ED STAFF [facility] - 06/28/[address] [facility] PHYSICIANAdmitter: LITZY 06:29:00 PM EST JELANI Horowitz Patient discharged. Emergency Attender: ARIC Sage 06/27/2019 11:57:00 PM [facility] Karen: STAFF ED STAFF [facility] - 06/28/[address] [facility] PHYSICIANAdmitter: ARIC 02:12:00 AM EST ADITHYA W Patient discharged. Emergency Attender: JOSE ED STAFF 06/27/2019 12:51:00 PM [facility] PHYSICIANAttender: STAFF ED [facility] - 06/27/[address] [facility] STAFF PHYSICIANAdmitter: 09:36:00 PM EST JOSE ED STAFF PHYSICIAN Patient discharged. Emergency Attender: ARIC HAJI 06/27/2019 03:59:00 AM [facility] Karen: STAFF ED STAFF [facility] - 06/27/[address] [facility] PHYSICIANAdmitter: ARIC 06:26:00 AM EST ADITHYA W Patient discharged. Emergency Attender: STAFF ED STAFF 06/24/2019 10:59:00 PM [facility] Medical PHYSICIAN EST - 06/25/2019 07:44:00 Center AM EST Patient discharged. Emergency Attender: PAULINO Sage 06/24/2019 01:51:00 PM [facility] Deborah: STAFF ED STAFF [email or web address] 06/24/[address] [facility] PHYSICIANAdmitter: PAULINO 10:37:00 PM EST PENELOPE Ellis Patient discharged. Emergency Attender: LITZY Sage 06/23/2019 04:58 :00 PM [facility] CAtthierno: STAFF ED STAFF [facility] - 06/24/[address] [facility] PHYSICIANAdmitter: LITZY 02:50:00 AM EST FAHNMITALI LITZY Horowitz Patient discharged. Emergency Attender: LITZY Sage 06/16/2019 06:18 :00 PM [facility] STAFF ED STAFF [facility] - 06/16/[address] [facility] PHYSICIANAdmitter: LITZY 09:48:00 PM EST JELANI LITZY Carlos Manuel Patient discharged. Emergency Attender: STAFF ED STAFF H 06/16/2019 05:45:00 AM [facility] Medical PHYSICIAN EST - 06/16/2019 05:52:00 Center AM EST Patient discharged. Emergency Attender: JOSE ED STAFF 06/16/2019 02:25:00 AM [facility] PHYSICIANAttender: STAFF ED EST - 06/16/[address] [facility] STAFF PHYSICIAN 09:02:00 AM EST Patient discharged. Emergency Attender: ED STAFF 06/15/2019 01:01:00 PM [facility] PHYSICIANAttender: STAFF ED [facility] - 06/15/[address] [facility] STAFF PHYSICIANAdmitter: ED 07:10:00 PM EST STAFF PHYSICIAN Patient discharged. Emergency Attender: LITZY MCGHEE 06/14/2019 08:05 :00 PM [facility] CAttender: ARIC HAJI [facility] - 06/15/[address] [facility] WAttender: STAFF ED STAFF 06:52:00 AM EST PHYSICIANAdmitter: LITZY Horowitz Patient discharged. Emergency Attender: ARIC Sage 06/13/2019 06:15:00 PM [facility] FRANCISCA ED STAFF [facility] - 06/14/[address] [facility] PHYSICIANAttender: STAFF ED 05:26:00 AM EST STAFF PHYSICIANAdmitter: ARIC Duenas Patient discharged. Emergency Attender: FRANCISCA ED STAFF 06/12/2019 08:47:00 PM [facility] PHYSICIANAttender: STAFF ED EST - 06/12/[address] [facility] STAFF PHYSICIANAdmitter: 09:46:00 PM EST [facility] PHYSICIANReferrer: STAFF ED STAFF PHYSICIAN Patient discharged. Emergency Attender: FRANCISCA ED STAFF 06/12/2019 05:09:00 PM [facility] PHYSICIANAttender: LITZY EST - 06/12/[address] [facility] JELANI MCGHEE CAttender: 06:37:00 PM EST STAFF ED STAFF PHYSICIANAdmitter: [facility] STAFF PHYSICIANReferrer: STAFF ED STAFF PHYSICIAN Patient discharged. Emergency Attender: ARIC Sage 06/10/2019 05:55:00 PM [facility]: STAFF ED STAFF [facility] - 06/10/2019 10:3 4:00 Center PHYSICIAN PM EST Patient discharged. Emergency Attender: LITZY Sage 06/09/2019 08:54 :00 PM [facility]: ARIC HAJI [facility] - 06/09/2019 [facility]: STAFF ED STAFF 10:57:00 PM EST PHYSICIANAdmitter: LITZY Horowitz Patient discharged. Emergency Attender: LITZY Sage 06/09/2019 06:18 :00 PM [facility]: STAFF ED STAFF [facility] - 06/09/[address] [facility] PHYSICIANAdmitter: LITZY 07:46:00 PM EST JELANI MCGHEE C Patient discharged. Emergency Attender: LITZY Sage 06/09/2019 02:23 :00 PM [facility]: STAFF ED STAFF [facility] - 06/09/[address] [facility] PHYSICIANAdmitter: LITZY 06:43:00 PM EST NAVIDMITALI LITZY C Patient discharged. Emergency Attender: ARIC Sage 06/08/2019 08:07:00 PM [facility]: LITZY PALOMARES [facility] - [facility]09/2019 [facility] STAFF ED 08:46:00 AM EST STAFF PHYSICIANAdmitter: ARIC HAJI WReferrer: STAFF ED STAFF PHYSICIAN Patient discharged. Emergency Attender: LITZY Sage 06/07/2019 04:26 :00 PM [facility]: STAFF ED STAFF [facility] - 06/07/[address] [facility] PHYSICIANAdmitter: LITZY 08:39:00 PM EST JACIELWILLIAMMITALI LITZY C Patient discharged. Emergency Attender: LEONEL ED STAFF H 06/06/2019 06:19:00 PM [facility] PHYSICIANAttender: STAFF ED EST - 06/06/[address] [facility] STAFF PHYSICIANAdmitter: LEONEL 11:22:00 PM EST ED STAFF PHYSICIAN Patient discharged. Emergency Attender: JOSE ED STAFF H 06/06/2019 11:50:00 AM [facility] PHYSICIANAttender: STAFF ED EST - 06/06/[address] [facility] STAFF PHYSICIANAdmitter: 06:05:00 PM EST JOSE ED STAFF PHYSICIAN Patient discharged. Emergency Attender: STAFF ED STAFF H 06/05/2019 05:53:00 PM [facility] PHYSICIANReferrer: STAFF ED EST - 06/06/[address] [facility] STAFF PHYSICIAN 11:24:00 AM EST Patient discharged. Emergency Attender: ED STAFF H 06/03/2019 02:42:00 PM [facility] PHYSICIANAttender: STAFF ED EST - 06/03/[address] [facility] STAFF PHYSICIANAdmitter: ED 07:12:00 PM EST STAFF PHYSICIAN Patient discharged. Emergency Attender: STAFF ED STAFF H 06/02/2019 03:47:00 PM [facility] Medical PHYSICIAN EST - 06/03/2019 06:24:00 Center AM EST Patient discharged. Emergency Attender: STAFF ED STAFF H-ER 06/01/2019 07:03:00 [facility] PHYSICIANAdmitter: STAFF ED PM EST - 06/02/[address] [facility] STAFF PHYSICIAN 09:42:00 AM EST Patient discharged. Emergency Attender: LEONEL ED STAFF 06/01/2019 01:42:00 PM [facility] PHYSICIANAttender: STAFF ED EST - 06/01/[address] [facility] STAFF PHYSICIANAdmitter: LEONEL 01:45:00 PM EST ED STAFF PHYSICIAN Patient discharged. Emergency Attender: AGUILAR ED STAFF 06/01/2019 01:37:00 PM [facility] PHYSICIANAttender: LEONEL ED [facility] - 06/01/[address] [facility] STAFF PHYSICIANAttender: STAFF 04:28:00 PM EST ED STAFF PHYSICIANAdmitter: AGUILAR ED STAFF PHYSICIAN Patient discharged. Emergency Attender: PAULINO Sage 05/31/2019 02:29:00 PM [facility] Deborah: STAFF ED STAFF EST - 05/31/[address] [facility] PHYSICIANAdmitter: PAULINO 08:32:00 PM EST PENELOPE Ellis Patient discharged. Emergency Attender: ARIC Sage 05/29/2019 02:39:00 PM [facility] Karen: STAFF ED STAFF [facility] - 05/30/[address] [facility] PHYSICIANAdmitter: ARIC 07:02:00 AM EST ADITHYA Duenas Patient discharged. Emergency Attender: ARIC Sage 05/28/2019 09:23:00 PM [facility] Karen: STAFF ED STAFF EST - 05/29/[address] [facility] PHYSICIANAdmitter: ARIC 07:28:00 AM EST ADITHYA WReferrer: STAFF ED STAFF PHYSICIAN Patient discharged. Emergency Attender: LEONEL ED STAFF H 05/28/2019 01:26:00 PM [facility] PHYSICIANAttender: STAFF ED EST - 05/29/[address] [facility] STAFF PHYSICIANAdmitter: LEONEL 01:06:00 AM EST ED STAFF PHYSICIAN Patient discharged. Emergency Attender: LEONEL ED STAFF H 05/24/2019 06:37:00 PM [facility] PHYSICIANAttender: STAFF ED EST - 05/25/[address] [facility] STAFF PHYSICIAN 10:33:00 AM EST Patient discharged. Emergency Attender: JOSE ED STAFF H 05/24/2019 12:04:00 PM [facility] PHYSICIANAttender: STAFF ED EST - 05/24/[address] [facility] STAFF PHYSICIANAdmitter: 09:12:00 PM EST [place] ED STAFF PHYSICIAN Patient discharged. Emergency Attender: FRANCISCA ED STAFF H 05/22/2019 10:10:00 PM [facility] PHYSICIANAttender: STAFF ED EST - 05/23/[address] [facility] STAFF PHYSICIANAdmitter: 09:05:00 AM EST [facility] ED STAFF PHYSICIAN Patient discharged. Emergency Attender: LITZY Sage 05/22/2019 02:13 :00 PM [facility] CHANHUSEYIN ED STAFF EST - 05/23/[address] [facility] PHYSICIANAttender: STAFF ED 12:13:00 AM EST STAFF PHYSICIANAdmitter: LITZY Horowitz Patient discharged. Emergency Attender: FRANCISCA ED STAFF H 05/21/2019 02:44:00 PM [facility] PHYSICIANAttender: LEONEL ED EST - 05/22/[address] [facility] STAFF PHYSICIANAttender: STAFF 12:01:00 AM EST ED STAFF PHYSICIANAdmitter: [facility] Patient discharged. Emergency Attender: ARIC Sage 05/20/2019 06:51:00 PM [facility] Karen: STAFF ED STAFF EST - 05/21/[address] [facility] PHYSICIANAdmitter: ARIC 11:22:00 AM EST ADITHYA W Patient discharged. Emergency Attender: ARIC Sage 05/19/2019 09:29:00 PM [facility] Agustínthaddeus: STAFF ED STAFF EST - 05/20/[address] [facility] PHYSICIANAdmitter: ARIC 06:30:00 AM EST ADITHYA W Patient discharged. Emergency Attender: AGUILAR ED STAFF H 05/18/2019 01:40:00 PM [facility] PHYSICIANAttender: STAFF ED EST - 05/18/[address] [facility] STAFF PHYSICIANAdmitter: AGUILAR 10:18:00 PM EST ED STAFF PHYSICIAN Patient discharged. Emergency Attender: STAFF ED STAFF H 05/17/2019 11:12:00 PM [facility] Medical PHYSICIAN EST - 05/18/2019 08:10:00 Center AM EST Patient discharged. Emergency Attender: JOSE ED STAFF H 05/17/2019 12:42:00 PM [facility] PHYSICIANAttender: LITZY EST - 05/17/[address] [facility] FAYOSEPH CAVAZOSIAN CAttender: 10:01:00 PM EST STAFF ED STAFF PHYSICIANAdmitter: [place] ED STAFF PHYSICIAN Patient discharged. Emergency Attender: STAFF ED STAFF H 05/16/2019 08:04:00 PM [facility] PHYSICIANReferrer: STAFF ED EST - 05/17/[address] [facility] STAFF PHYSICIAN 08:38:00 AM EST Patient discharged. Emergency Attender: ARIC Sage 05/15/2019 04:42:00 PM [facility] WAtthierno: STAFF ED STAFF EST - 05/16/[address] [facility] PHYSICIANAdmitter: ARIC 08:39:00 AM EST ADITHYA Reeveser: STAFF ED STAFF PHYSICIAN Patient discharged. Emergency Attender: FRANCISCA ED STAFF H 05/14/2019 11:53:00 PM [facility] PHYSICIANAttender: STAFF ED EST - 05/15/[address] [facility] STAFF PHYSICIANAdmitter: 06:49:00 AM EST [facility] ED STAFF PHYSICIAN Patient discharged. Emergency Attender: FRANCISCA ED STAFF H 05/14/2019 03:32:00 PM [facility] PHYSICIANAttender: STAFF ED EST - 05/14/[address] [facility] STAFF PHYSICIANAdmitter: 11:00:00 PM EST [facility] ED STAFF PHYSICIAN Patient discharged. Inpatient Attender: RACHEL CORNEJO H-HAL5 05/07/2019 08:12:00 [facility] RAÚLOAttender: STAFF ED STAFF AM EST - 05/14/[address] [facility] PHYSICIANAdmitter: RACHEL 10:16:00 AM EST CLEMENTE OLSENOReferrer: RACHEL RAMOS Patient discharged. Emergency Attender: ARIC Sage 05/06/2019 05:37:00 PM [facility] WAtthierno: STAFF ED STAFF EST - 05/07/[address] [facility] PHYSICIANAdmitter: ARIC 04:16:00 AM EST ADITHYA W Patient discharged. Emergency Attender: JOSE ED STAFF H 05/05/2019 04:09:00 PM [facility] PHYSICIANAttender: ARIC [facility] - 05/06/[address] [facility] ADITHYAJAMEL Randolphthaddeus: STAFF ED 09:14:00 AM EST STAFF PHYSICIANAdmitter: JOSE ED STAFF PHYSICIAN Patient discharged. Emergency Attender: STAFF ED STAFF H 05/04/2019 08:43:00 PM [facility] PHYSICIAN [facility] - 05/05/2019 06:47:00 Center AM EST Patient discharged. Emergency Attender: STAFF ED STAFF H 05/02/2019 03:18:00 PM [facility] PHYSICIAN EST - 05/02/2019 11:40:00 Center PM EST Patient discharged. Emergency Attender: LITZY MCGHEE 05/01/2019 02:04 :00 PM [facility]: STAFF ED STAFF [facility] - 05/01/[address] [facility] PHYSICIANAdmitter: LITZY 07:36:00 PM EST JELANI Horowitz Patient discharged. Emergency Attender: ED STAFF 04/30/2019 07:51:00 PM [facility] PHYSICIANAttender: STAFF ED [facility] - 05/01/[address] [facility] STAFF PHYSICIANAdmitter: ED 07:42:00 AM EST STAFF PHYSICIANReferrer: STAFF ED STAFF PHYSICIAN Patient discharged. Emergency Attender: STAFF ED STAFF 04/30/2019 02:40:00 PM [facility] PHYSICIAN [facility] - 04/30/2019 09:24:00 Center PM EST Patient discharged. Emergency Attender: ARIC Sage 04/29/2019 08:43:00 PM [facility]: STAFF ED STAFF [facility] - 04/30/[address] [facility] PHYSICIANAdmitter: ARIC 07:18:00 AM EST ADITHYA W Patient discharged. Emergency Attender: STAFF ED STAFF 04/29/2019 02:53:00 AM [facility] PHYSICIAN [facility] - 04/29/2019 09:26:00 Center AM EST Patient discharged. Emergency Attender: JOSE ED STAFF 04/28/2019 03:54:00 PM [facility] PHYSICIANAttender: STAFF ED [facility] - 04/28/[address] [facility] STAFF PHYSICIANAdmitter: 09:41:00 PM EST JOSE ED STAFF PHYSICIAN Patient discharged. Emergency Attender: Josue Escobedo 04/27/2019 03:35:00 PM [facility] Andrea MDAttender: STAFF ED EST - 04/28/2019 Center STAFF PHYSICIAN 05:12:00 PM EST Patient discharged. Emergency Attender: STAFF ED STAFF H 04/26/2019 12:56:00 PM [facility] PHYSICIAN EST - 04/27/2019 05:57:00 Center AM EST Patient discharged. Emergency Attender: ARIC Sage 04/24/2019 01:54:00 AM [facility] Karen: STAFF ED STAFF [facility] - 04/24/[address] [facility] PHYSICIANAdmitter: ARIC 09:19:00 AM EST ADITHYA W Patient discharged. Emergency Attender: LEONEL ED STAFF H 04/23/2019 01:05:00 PM [facility] PHYSICIANAttender: STAFF ED EST - 04/23/[address] [facility] STAFF PHYSICIANAdmitter: LEONEL 08:40:00 PM EST ED STAFF PHYSICIAN Patient discharged. Emergency Attender: LITZY Sage 04/22/2019 04:09 :00 PM [facility] JOSE ED STAFF [facility] - 04/23/[address] [facility] PHYSICIANAttender: STAFF ED 08:02:00 AM EST STAFF PHYSICIANAdmitter: LITZY Horowitz Patient discharged. Emergency Attender: JOSE ED STAFF 04/21/2019 12:10:00 PM [facility] PHYSICIANAttender: ARIC [facility] - 04/22/[address] [facility] ADITHYA WAtthierno: STAFF ED 06:50:00 AM EST STAFF PHYSICIANAdmitter: ARIC HAJI W Patient discharged. Emergency Attender: AGUILAR ED STAFF 04/20/2019 01:07:00 PM [facility] PHYSICIANAttender: FRANCISCA ED EST - 04/21/[address] [facility] STAFF PHYSICIANAttender: STAFF 05:19:00 AM EST ED STAFF PHYSICIANAdmitter: AGUILAR ED STAFF PHYSICIAN Patient discharged. Emergency Attender: STAFF ED STAFF H 04/19/2019 09:58:00 PM [facility] PHYSICIAN EST - 04/20/2019 08:24:00 [place] AM EST Patient discharged. Emergency Attender: LITZY Sage 04/19/2019 05:01 :00 PM [facility] STAFF ED STAFF EST - 04/19/[address] [facility] PHYSICIANAdmitter: LITZY 07:11:00 PM EST JELANI Horowitz Patient discharged. Emergency Attender: JOSE ED STAFF H 04/19/2019 01:30:00 PM [facility] PHYSICIANAttender: LITZY EST - 04/19/[address] [facility] JELANI MCGHEE CAttender: 07:00:00 PM EST STAFF ED STAFF PHYSICIANAdmitter: JOSE ED STAFF PHYSICIAN Patient discharged. Emergency Attender: LEONEL ED STAFF H 04/18/2019 02:10:00 PM [facility] PHYSICIANAttender: STAFF ED EST - 04/19/[address] [facility] STAFF PHYSICIAN 08:34:00 AM EST Patient discharged. Emergency Attender: STAFF ED STAFF H 04/17/2019 07:23:00 PM [facility] PHYSICIAN EST - 04/18/2019 08:39:00 Center AM EST Patient discharged. Emergency Attender: LITZY MCGHEE H 04/16/2019 05:51 :00 PM [facility] CAttender: ARIC HAJI EDT - 04/17/[address] [facility] WAttender: STAFF ED STAFF 03:56:00 AM EST PHYSICIANAdmitter: LITZY MCGHEE CReferrer: STAFF ED STAFF PHYSICIAN Patient discharged. Emergency H 04/11/2019 06:11:00 PM EDT - [address] [place] [address] 06:15:00 PM EDT Patient discharged. Emergency Admitter: ARIC HAJI [facility] 04/11/2019 06:10:00 PM [facility] EDT - 04/12/2019 06:22:00 Center AM EDT Patient discharged. Emergency Attender: ED STAFF H 04/10/2019 07:46:00 PM [facility] PHYSICIANAdmitter: ED STAFF EDT - 04/11/[address] [facility] PHYSICIAN 07:41:00 AM EDT Patient discharged. Emergency Admitter: ED STAFF H 04/09/2019 09:12:00 PM [facility] PHYSICIAN EDT - 04/10/2019 07:41:00 Center AM EDT Patient discharged. Emergency H 04/08/2019 05:24:00 PM EDT - [address] [place] [address] 07:14:00 AM EDT Patient discharged. Emergency H 04/07/2019 04:50:00 AM EDT - [address] [place] [address] 08:39:00 AM EDT Patient discharged. Emergency Attender: AGUILAR ED STAFF H 04/06/2019 12:36:00 PM [facility] PHYSICIANAdmitter: AGUILAR ED EDT - 04/06/2019 [facility] Center STAFF PHYSICIAN 06:56:00 PM EDT Patient discharged. Emergency H 04/06/2019 01:23:00 AM EDT - [address] [place] [address] 01:23:00 PM EDT Patient discharged. Emergency H-ER 04/05/2019 03:07:00 PM EDT - [facility] 04/05/2019 10:17:00 PM EDT Patient discharged. Emergency Admitter: LEONEL STAFF H 04/04/2019 04:47:00 PM [facility] PHYSICIAN EDT - 04/05/2019 08:41:00 Center AM EDT Patient discharged. Emergency H 04/03/2019 05:58:00 PM EDT - [address] [place] [address] 07:07:00 AM EDT Patient discharged. Emergency H 04/02/2019 08:14:00 PM EDT - [address] [place] [address] 05:08:00 AM EDT Patient discharged. Emergency H 04/01/2019 07:44:00 PM EDT - [facility]03/[address] [place] [address] 07:05:00 AM EDT Patient discharged. Emergency H 03/31/2019 02:22:00 PM EDT - [facility]01/[address] [place] [address] 04:41:00 PM EDT Patient discharged. Emergency H 03/30/2019 04:51:00 PM EDT - [facility] [place] [address] 08:20:00 AM EDT Patient discharged. Emergency H-ER 03/26/2019 06:15:00 PM EDT - [facility] 03/27/2019 07:01:00 AM EDT Patient discharged. Emergency H 03/25/2019 03:53:00 PM EDT - [address] [place] [address] 07:45:00 AM EDT Patient discharged. Emergency H 03/24/2019 07:50:00 PM EDT - [address] [place] [address] 06:06:00 AM EDT Patient discharged. Emergency H 03/24/2019 12:27:00 PM EDT - [address] [place] [address] 02:32:00 PM EDT Patient discharged. Emergency H 03/23/2019 01:31:00 PM EDT - [address] [place] [address] 06:43:00 AM EDT Patient discharged. Emergency H 03/22/2019 10:58:00 PM EDT - [address] [place] [address] 08:46:00 AM EDT Patient discharged. Emergency H 03/16/2019 09:22:00 PM EDT - [address] [place] [address] 08:35:00 AM EDT Patient discharged. Emergency H 03/11/2019 06:34:00 PM EDT - [address] [place] [address] 06:53:00 AM EDT Patient discharged. Emergency H 03/10/2019 06:16:00 PM EDT - [address] [place] [address] 06:17:00 AM EDT Patient discharged. Emergency H 03/05/2019 08:33:00 PM EDT - [address] [place] [address] 06:17:00 AM EDT Patient discharged. Emergency H 03/04/2019 10:25:00 PM EDT - [address] [place] [address] 06:21:00 AM EDT Patient discharged. Emergency H 03/03/2019 06:39:00 PM EDT - [address] [place] [address] 08:38:00 AM EDT Patient discharged. Emergency H 03/02/2019 04:28:00 PM EDT - [address] [place] [address] 06:28:00 AM EDT Patient discharged. Emergency H-ER 03/01/2019 07:38:00 PM EDT - [facility] 03/02/2019 06:43:00 AM EDT Patient discharged. Emergency H 03/01/2019 11:58:00 AM EDT - [address] [place] [address] 03:10:00 PM EDT Patient discharged. Emergency H 02/28/2019 07:10:00 PM EDT - [address] [place] [address] 06:36:00 AM EDT Patient discharged. Emergency H 02/27/2019 04:55:00 PM EDT - [address] [place] [address] 09:21:00 PM EDT Patient discharged. Emergency H 02/24/2019 01:31:00 PM EDT - [address] [place] [address] 05:19:00 PM EDT Patient discharged. Emergency H 02/23/2019 10:43:00 PM EDT - [address] [place] [address] 06:26:00 AM EDT Patient discharged. Emergency Attender: AGUILAR ED STAFF H 02/23/2019 03:53:00 PM [facility] PHYSICIANAdmitter: AGUILAR ED EDT - 02/23/[address] [facility] STAFF PHYSICIAN 11:10:00 PM EDT Patient discharged. Emergency H 02/22/2019 05:36:00 PM EDT - [address] [place] [address] 08:17:00 AM EDT Patient discharged. Emergency H 02/21/2019 05:19:00 PM EDT - [address] [place] [address] 09:06:00 AM EDT Patient discharged. Emergency H 02/19/2019 04:37:00 PM EDT - [address] [place] [address] 06:12:00 AM EDT Patient discharged. Emergency H 02/18/2019 05:43:00 PM EDT - [address] [place] [address] 10:19:00 PM EDT Patient discharged. Emergency H 02/17/2019 07:32:00 PM EDT - [address] [place] [address] 10:22:00 AM EDT Patient discharged. Emergency H 02/17/2019 11:35:00 AM EDT - [address] [place] [address] 05:03:00 PM EDT Patient discharged. Emergency Attender: AGUILAR ED STAFF H 02/16/2019 08:31:00 PM [facility] Medical PHYSICIAN EDT - 02/17/2019 09:52:00 Center AM EDT Patient discharged. Emergency H 02/15/2019 01:28:00 PM EDT - [address] [place] [address] 06:06:00 PM EDT Patient discharged. Emergency H 02/14/2019 08:12:00 PM EDT - [address] [place] [address] 08:23:00 AM EDT Patient discharged. Emergency H 02/13/2019 07:09:00 PM EDT - [address] [place] [address] 08:26:00 AM EDT Patient discharged. Emergency H 02/12/2019 01:57:00 PM EDT - [address] [place] [address] 04:14:00 AM EDT Patient discharged. Emergency H 02/11/2019 07:52:00 PM EDT - [address] [place] [address] 06:29:00 AM EDT Patient discharged. Emergency H 02/11/2019 01:28:00 PM EDT - [address] [place] [address] 06:46:00 PM EDT Patient discharged. Emergency H 02/09/2019 08:58:00 PM EDT - [address] [place] [address] 06:43:00 AM EDT Patient discharged. Emergency H 02/08/2019 01:31:00 PM EDT - [address] [place] [address] 08:50:00 AM EDT Patient discharged. Emergency H 02/07/2019 09:32:00 PM EDT - [address] [place] [address] 09:31:00 AM EDT Patient discharged. Emergency Attender: Josue [facility] 02/05/2019 04:12:00 [facility] [place] [facility] - 02/06/2019 02:51:00 Center AM EDT Patient discharged. Emergency H 02/04/2019 06:27:00 PM EDT - [address] [place] [address] 06:44:00 AM EDT Patient discharged. Emergency H 02/03/2019 08:22:00 PM EDT - [address] [place] [address] 08:16:00 AM EDT Patient discharged. Emergency H-ER 02/02/2019 11:00:00 PM EDT - [facility] 02/03/2019 08:30:00 AM EDT Patient discharged. Emergency H 02/01/2019 09:37:00 PM EDT - [address] [place] [address] 08:40:00 AM EDT Patient discharged. Emergency H 02/01/2019 02:08:00 PM EDT - [address] [place] [address] 08:34:00 PM EDT Patient discharged. Emergency H 01/31/2019 03:49:00 PM EDT - [address] [place] [address] 08:20:00 PM EDT Patient discharged. Emergency H 01/29/2019 09:40:00 PM EDT - [address] [place] [address] 07:27:00 AM EDT Patient discharged. Emergency H 01/29/2019 12:08:00 PM EDT - [address] [place] [address] 07:18:00 PM EDT Patient discharged. Emergency H-ER 01/26/2019 06:27:00 PM EDT - [facility] 01/27/2019 06:21:00 AM EDT Patient discharged. Inpatient Attender: ELIANA FAVIO H-HAL6 01/24/2019 07:34:00 [facility] ROBERTAdmitter: ELIANA PM EDT - 01/26/[address] [facility] FAVIO MONROYReferrer: 09:40:00 AM EDT ELIANA MONROY Patient discharged. Inpatient Attender: ELIANA HaddadHAL6 01/19/2019 12:40:00 [facility] ROBERTAttender: SANG PM EDT - 01/24/[address] [facility] LEEAdmitter: ELIANA 08:33:00 AM EDT FAVIO MONROYReferrer: ELIANA MONROY Patient discharged. Immunizations Vaccine Date Status Description Data Source(s) Tdap 09/17/2019 completed [facility] edical 08:17:00 PM EDT Center Note that this vaccine 08/19/2019 [facility] Medical name has changed. See 08:48:00 PM EST Ce nter also Td (adult). It is not adsorbed. Note that this vaccine 08/19/2019 completed [facility] Medical name has changed. See 08:48:00 PM EST Ce nter also Td (adult). It is not adsorbed. Note that this vaccine 06/28/2019 [facility] Medical name has changed. See 12:42:00 AM EST Ce nter also Td (adult). It is not adsorbed. Medications Medication Brand Start Product Dose Route Administrative Pharmacy [facility] Indications Reaction Description Data Name Date Form Instructions Instructions Source(s) Vitamin B Vitami ORAL complet Vitamin B12 [facility] 1 MG n B12 2019 Table ed [...] NaCl 0.9% 999 UNK active 0.9% NaCl [facility] IV NaCl 2020 mL IV 1000 mL; [facility] IV 05:17: IV rate: Health 42 PM Bolus over Care EST 30 minutes Corporati o n Medication administered onsite 0.9% 0.9% 08/16/2019 1000 mL UNK active 0.9% NaC [facility] NaCl IV NaCl IV 05:17:42 PM IV 1000 mL; [facility] IV rate: Care Bolus over Corporati on 30 minutes Medication administered onsite Insurance Providers Payer name Policy type Policy ID Covered Covered republican's Policy P robert / Coverage republican ID relationship to Thompson Inf ormation type thompson JM [id number] HEALTH NON CAP MEDICAID [id number] SP [id number] JM CARE W [id number] 01 [id number] JM CARE W [id number] 01 [id number] W [id number] 01 [id number] JM [id number] 300 HEALTH NON CAP JM CARE W [id number] 01 [id number] MEDICAID [id number] SP [id number] SELF PAY [id number] Self [id number] MEDICAID INP [id number] Self [id number] U [facility] JM [id number] Self [id number] CARE MEDICAID [id number] SP [id number] JM CARE W [id number] 01 [id number] [place] [id number] SP [id number] JM W [id number] 01 [id number] 300 UNK UNK UNK UNK UNK UNK JM CARE W [id number] 01 [id number] [place] JM CARE W [id number] 01 [id number] [place] J[place] CARE W [id number] 01 [id number] JM W [id number] 01 [id number] JM CARE W [id number] 01 [id number] [place] JM CARE W [id number] 01 [id number] [place] JM CARE W [id number] 01 [id number] [place] W [id number] 01 [id number] "" W [id number] 01 [id number] JM CARE W [id number] 01 [id number] R-LIABILIT [id number] Y W [id number] 01 [id number] W [id number] 01 [id number] JM W [id number] 01 [id number] JM W [id number] 01 [id number] W [id number] 01 [id number] 13-00 JM W [id number] Problems, Conditions, and Diagnoses Code Display Name Description Problem Type Effective Data Sour ce(s) Dates F17.210 Nicotine NICOTINE Diagnosis 03/24/2020 [facility] dependence, DEPENDENCE, 05:26:[address] cigarettes, CIGARETTES, EDT uncomplicated UNCOMPLICATED J44.9 Chronic obstructive CHRONIC Diagnosis 03/24/2020 [facility] pulmonary disease, OBSTRUCTIVE 05:26:00 PM [facility] unspecified PULMONARY DISEASE, EDT UNSPECIFIED F10.20 Alcohol dependence, ALCOHOL Diagnosis 03/24/2020 [facility] uncomplicated DEPENDENCE, 05:26:00 PM Medical C enter UNCOMPLICATED EDT F10.129 Alcohol abuse with ALCOHOL ABUSE WITH Diagnosis 0 [place] intoxication, INTOXICATION, 05:26:00 PM [facility] unspecified UNSPECIFIED EDT Z59.0 Homelessness HOMELESSNESS Diagnosis 03/23/2020 [facility] 05:47:00 PM Medical Cent[facility] r EDT 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 03/20/2020 [facility] heart disease of DISEASE OF [place] 01:00:00 PM [facility] [place] coronary CORONARY ARTERY EDT artery without W/O ANG PCTRS angina pectoris E83.42 Hypomagnesemia HYPOMAGNESEMIA Diagnosis 03/20/2020 [facility] 01:00:00 PM [facility] Cente r EDT E87.6 Hypokalemia HYPOKALEMIA Diagnosis 03/20/2020 [facility] 01:00:00 PM Medical Cente r EDT D50.9 Iron deficiency IRON DEFICIENCY Diagnosis 03/20/2020 [facility] anemia, unspecified ANEMIA, 01:00:00 PM [facility] UNSPECIFIED EDT I10 Essential (primary) ESSENTIAL Diagnosis 03/20/2020 [facility] hypertension (PRIMARY) 01:00:[address] HYPERTENSION EDT M54.5 Low back pain LOW BACK PAIN Diagnosis 03/20/2020 [facility] 01:00:00 PM Medical Cente r EDT E78.00 Pure PURE Diagnosis 03/20/2020 [facility] hypercholesterolemi HYPERCHOLESTEROLEM 01:00:00 PM Medical Center a, unspecified IA, UNSPECIFIED EDT F10.229 Alcohol dependence ALCOHOL DEPENDENCE Diagnosis 0 [facility] with intoxication, WITH INTOXICATION, 01:00:00 PM [facility] unspecified UNSPECIFIED EDT Y90.4 Blood alcohol level BLOOD ALCOHOL Diagnosis 03/20/2020 [facility] of 80-99 mg/100 ml LEVEL OF 80-99 01:00:00 PM [facility] MG/100 ML EDT F10.239 Alcohol dependence ALCOHOL DEPENDENCE Diagnosis 0 [facility] with withdrawal, WITH WITHDRAWAL, 01:00:00 PM [facility] unspecified UNSPECIFIED EDT I26.99 Other pulmonary OTHER PULMONARY Diagnosis 03/20/2020 [facility] embolism without EMBOLISM WITHOUT 01:00:00 PM edical [place] acute cor pulmonale ACUTE COR EDT PULMONALE Z86.711 Personal history of PERSONAL HISTORY Diagnosis 03/20/2020 [facility] pulmonary embolism OF PULMONARY 01:00:00 PM [facility] EMBOLISM EDT I24.9 Acute ischemic ACUTE ISCHEMIC [...] Medical Cente r simulation] SIMULATION) EDT R40.2410 Jc coma scale JC COMA SCALE Diagnosis 0 [facility] score [...] [place] disorder, single DISORDER, SINGLE 06:39:00 PM edical Center episode, EPISODE, EDT unspecified UNSPECIFIED M54.2 Cervicalgia CERVICALGIA Diagnosis 12/08/2019 [facility] 01:04:00 PM Medical Cente r EDT Y92.[address] AND Diagnosis 11/30/2019 [address] [place] and highway as the HIG[address] PL[address] 03:04:[address] of occurrence EDT of the external cause Y93.9 Activity, ACTIVITY, Diagnosis 11/30/2019 [facility] unspecified UNSPECIFIED 03:04:00 AM Medical [facility] ter EDT W19.XXXA Unspecified fall, UNSPECIFIED FALL, Diagnosis 11/30/2019 [facility] initial encounter INITIAL ENCOUNTER 03:04:00 AM Medical [place] EDT S01.91XA Laceration without LACERATION W/O Diagnosis 11/30/2019 [facility] [place] foreign body of FOREIGN BODY OF 03:04:00 AM Med medical center [facility] Center unspecified part of UNSP PART OF [...] [facility] eyeball and orbital EYEBALL AND 05:20:00 PM [facility] [place] tissues, left eye, ORBITAL TISSUES, EDT initial encounter LEFT EYE, INIT S00.212A Abrasion of left ABRASION OF LEFT Diagnosis 11/23/2019 [facility] [place] eyelid and EYELID AND 05:20:00 PM Medical Cente r periocular area, PERIOCULAR AREA, EDT initial [...] head, initial OF HEAD, INITIAL 01:37:00 PM [facility] encounter ENCOUNTER EDT U07.1 COVID-19 ACUTE COVID-19 ACUTE Diagnosis 10/30/2019 [facility] RESPIRATORY DISEASE RESPIRATORY 02:58:00 PM [facility] DISEASE EDT R06.00 Dyspnea, DYSPNEA, Diagnosis 10/30/2019 [facility] unspecified UNSPECIFIED 02:58:[address] EDT Z00.00 Encounter for ENCNTR FOR GENERAL Diagnosis 10/21/2019 [facility] general adult ADULT MEDICAL EXAM 12:18:00 AM [facility] medical examination W/O ABNORMAL EDT without abnormal FINDINGS findings Y93.89 Activity, other ACTIVITY, OTHER Diagnosis 10/18/2019 [facility] specified SPECIFIED 06:11:00 AM Medical Cente r EDT S80.211A Abrasion, right ABRASION, RIGHT Diagnosis 10/18/2019 [facility] knee, initial KNEE, INITIAL 06:11:00 AM Medical Center encounter ENCOUNTER EDT Z04.89 ENCOUNTER FOR ENCOUNTER FOR Diagnosis 10/18/2019 [facility] EXAMINATION AND EXAMINATION AND 06:11:00 AM [facility] OBSERVATION FOR OTH OBSERVATION FOR EDT REASONS OTH REASONS R41.0 Disorientation, DISORIENTATION, Diagnosis 10/13/2019 [facility] unspecified UNSPECIFIED 07:53:[address] [...] 09/19/2019 [facility] UNSPECIFIED 07:49:00 AM [facility] er EDT M62.81 Muscle weakness MUSCLE WEAKNESS Diagnosis 09/19/2019 [facility] (generalized) (GENERALIZED) 07:49:[address] [facility] EDT E46 Unspecified UNSPECIFIED Diagnosis 09/19/2019 [place] joaquim protein-calorie PROTEIN-CALORIE 07:49:00 AM [facility] malnutrition MALNUTRITION EDT Z68.30 Body mass index BODY MASS INDEX Diagnosis 09/19/2019 [facility] (BMI) 30.0-30.9, (BMI) 30.0-30.9, 07:49:00 AM [facility] adult ADULT EDT H70.90 Unspecified UNSPECIFIED Diagnosis 09/17/2019 [facility] [place] mastoiditis, MASTOIDITIS, 05:08:00 PM Medical C enter unspecified ear UNSPECIFIED EAR EDT M19.90 Unspecified UNSPECIFIED Diagnosis 09/17/2019 [facility] [place] osteoarthritis, OSTEOARTHRITIS, 05:08:00 PM [facility] unspecified site UNSPECIFIED SITE EDT S00.03XA Contusion of scalp, CONTUSION OF Diagnosis 09/17/2019 Rafael katlin [place] initial encounter SCALP, INITIAL 05:08:00 PM [facility] ENCOUNTER EDT S00.01XA Abrasion of scalp, ABRASION OF SCALP, Diagnosis 0 [facility] initial encounter INITIAL ENCOUNTER 05:08:[address] [facility] EDT R05 Cough COUGH Diagnosis 09/13/2019 [facility] 08:56:00 AM [facility]T R50.9 Fever, unspecified FEVER, UNSPECIFIED Diagnosis 0 [facility] 07:50:00 AM [facility] EDT S22.089A Unspecified UNSP FRACTURE OF Diagnosis 08/27/2019 [facility] fracture of T11-T12 T11-T12 VERTEBRA, 08:45:00 PM [facility] [place] vertebra, initial INIT FOR CLOS FX EDT encounter for closed fracture S01.01XA Laceration without LACERATION WITHOUT Diagnosis 0 [facility] foreign body of FOREIGN BODY OF 07:15:00 PM [facility] scalp, initial SCALP, INITIAL EST encounter ENCOUNTER Z91.018 Allergy to other ALLERGY TO OTHER Diagnosis 08/16/2019 [facility] [employer] 03:33:00 PM [facility] [employer] I10 Essential (primary) ESSENTIAL Diagnosis 08/16/2019 Dago oliver hypertension (PRIMARY) 03:33:00 PM [facility] HYPERTENSION EST [employer] F10.10 Alcohol abuse, ALCOHOL ABUSE, Diagnosis 08/16/2019 Nallely berta uncomplicated UNCOMPLICATED 03:33:00 PM [facility] [employer] F10.129 Alcohol abuse with ALCOHOL ABUSE WITH Diagnosis 0 [place] intoxication, INTOXICATION, 03:33:00 PM [facility] unspecified UNSPECIFIED EST [employer] K57.90 Diverticulosis of DVRTCLOS OF Diagnosis 08/08/2019 [facility] intestine, part INTEST, PART UNSP, 04:28:00 PM Medical Center unspecified, W/O PERF OR EST without perforation ABSCESS W/O BLEED or abscess without bleeding R10.9 Unspecified UNSPECIFIED Diagnosis 08/08/2019 [place] abdominal pain ABDOMINAL PAIN 04:28:00 PM [...] Diagnosis 0 [facility] 01:34:00 PM [facility] EST W01.0XXA Fall on same level FALL SAME LEV FROM Diagnosis 0 [facility] from slipping, SLIP/TRIP W/O 03:59:00 AM Medica l Center tripping and STRIKE AGAINST EST stumbling without OBJECT, INIT subsequent striking against object, initial encounter S63.614A Unspecified sprain UNSPECIFIED SPRAIN Diagnosis 0 [facility] of right ring OF RIGHT RING 03:59:00 AM Medical [place] finger, initial FINGER, INITIAL EST encounter ENCOUNTER S63.616A Unspecified sprain UNSPECIFIED SPRAIN Diagnosis 0 [facility] of right little OF RIGHT LITTLE 03:59:00 AM Med ical Center finger, initial FINGER, INITIAL EST encounter ENCOUNTER Z00.8 Encounter for other ENCOUNTER FOR Diagnosis 06/12/2019 [facility] general examination OTHER GENERAL 08[facility]47:00 [facility] EST M25.512 Pain in left PAIN IN LEFT Diagnosis 06/09/2019 [facility] shoulder SHOULDER 06:18:00 PM Medical Cente r EST S80.212A Abrasion, left ABRASION, LEFT Diagnosis 06/09/2019 [facility] knee, initial KNEE, INITIAL 06:18:00 PM Medical Center encounter ENCOUNTER EST Y92.219 Unspecified school [employer] THE Diagnosis 9 [facility] as the place of PLACE OF 01:37:00 PM Medical Center occurrence of the OCCURRENCE OF THE EST external cause EXTERNAL CAUSE M25.562 Pain in left knee PAIN IN LEFT KNEE Diagnosis 06/01/2019 [facility] 01:37:00 PM Medical Cente r EST M25.561 Pain in right knee PAIN IN RIGHT KNEE Diagnosis 9 [facility] 01:37:00 PM [facility] EST S01.81XA Laceration without LACERATION W/O Diagnosis 06/01/2019 [facility] foreign body of FOREIGN BODY OF 01:37:00 PM [facility] other part of head, OTH PART OF HEAD, EST initial encounter INIT ENCNTR M25.569 Pain in unspecified PAIN IN Diagnosis 06/01/2019 [facility] knee UNSPECIFIED KNEE 01:37:00 PM Medical Center EST I16.0 Hypertensive HYPERTENSIVE Diagnosis 05/14/2019 [facility] urgency URGENCY 10:16:00 AM [facility] EST Y90.0 Blood alcohol level BLOOD ALCOHOL Diagnosis 05/14/2019 [facility] of less than 20 LEVEL OF LESS THAN 10:16:00 AM Medical Center mg/100 ml 20 MG/100 ML EST M25.519 Pain in unspecified PAIN IN Diagnosis 05/02/2019 [facility] shoulder UNSPECIFIED 03:18:00 PM [facility] er SHOULDER EST Y92.[address] as the SIDEWALK THE Diagnosis 04/29/[address] of occurrence PLACE OF 02:53:00 AM [facility] Center of the external OCCURRENCE OF THE EST cause EXTERNAL CAUSE S42.031A Displaced fracture DISP FX OF LATERAL Diagnosis 9 [facility] of lateral end of END OF RIGHT 01:54:00 AM [facility] Center right clavicle, CLAVICLE, INIT FOR EST initial encounter CLOS FX for closed fracture F10.29 Alcohol dependence ALCOHOL DEPENDENCE Diagnosis 9 [facility] with unspecified WITH UNSPECIFIED 04:09:00 PM 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 Procedure and PROC/TRTMT NOT CRD Diagnosis 02/27/2019 [facility] [place] treatment not OUT D/T PT LV BEF 04:55:00 PM [facility] Center carried out due to SEEN BY [facility] EDT patient leaving PROV prior to being seen by health care provider L60.0 Ingrowing nail INGROWING NAIL Diagnosis 02/15/2019 [facility] 01:28:00 PM Medical Cente r EDT Results ID Date Data Source Liver 03/20/2020 05:45:00 AM EDT [facility] Profile.[id number] Name Value Range Interpretation Description Data Sup [...] s"> (0.2-1.3 MG/DL)</content> ID Date Data Source HematologyRou.[id number] 03/20/2020 05:45:00 AM EDT [facility] 0400 Name Value Range Interpretation [...] (< 1 %)</content> ID Date Data Source GFR(Creatinine).[id number] 03/20/2020 05:45:00 AM EDT [facility] 0-0400 Name Value Range Interpretation Code Description Data Pebbles rce(s) Supporting Document(s ) UNK > 60 <content [facility] styleCode="Bold"> Medical Cent er EGFR </content>144 GFR<content styleCode="Italic s"> (> 60 GFR)</content> ID Date Data Source Coagulation 03/20/2020 05:45:00 AM [facility] Rout.[id number] EDT Name Value Range Interpretation Description Data Sup porting Code Source(s) Document(s ) UNK 9.0-13.0 <content [facility] styleCode="Bold" [place] >[facility] </content>12.5 Center SEC<content styleCode="Itali cs"> (9.0-13.0 SEC)</content> INR in 0.80-1.2 <content Saint Platelet poor 0 styleCode="Bold" [place] plasma by >INR Medical Coagulation </content>1.13 Center assay #<content styleCode="Itali cs"> (0.80-1.20 #)</content> aPTT in 25.1-36. <content [facility] Platelet poor 5 styleCode="Bold" [facility] plasma by >Partial Medical Coagulation Thromboplastin Center assay Time </content>28.0 SEC<content styleCode="Itali cs"> (25.1-36.5 SEC)</content> ID Date Data Source CHMROUTINECCDA.[id number] 03/20/2020 05:45:00 AM EDT [facility] -0400 Name Value Range Interpretation Description [...] [place] in Serum or d">Magnesium Medical Plasma </content>1.3 [...] (2.5-4.5 MG/DL)</conten t> ID Date Data Source [facility].[id number] 03/20/2020 05:45:00 AM EDT [facility] Name Value Range Interpretation [...] Data Source Liver 03/19/2020 05:30:00 AM EDT [facility] Profile.[id number] Name Value Range Interpretation Description Data Sup [...] s"> (0.2-1.3 MG/DL)</content> ID Date Data Source HematologyRou.[id number] 03/19/2020 05:30:00 AM EDT [facility] 0400 Name Value Range Interpretation Description Data Sup porting Code Source(s) Document(s ) Erythrocytes 4.4-5.9 Below low normal <content Saint [#/volume] in styleCode="Bold [facility] Blood by ">Red Blood Medical Automated count [...] (< 1 %)</content> ID Date Data Source GFR(Creatinine).[id number] 03/19/2020 05:30:00 AM EDT [facility] 0-0400 Name Value Range Interpretation Code Description Data Pebbles rce(s) Supporting Document(s ) UNK > 60 <content [facility] styleCode="Bold"> Medical Cent er EGFR </content>177 GFR<content styleCode="Italic s"> (> 60 GFR)</content> ID Date Data Source Coagulation 03/19/2020 05:30:00 AM [facility] Rout.[id number] EDT Name Value Range Interpretation Description Data [...] cs"> (25.1-36.5 SEC)</content> ID Date Data Source CHMROUTINECCDA.[id number] 03/19/2020 05:30:00 AM EDT [facility] -0400 Name Value Range Interpretation [...] (6.3-8.2 G/DL)</content > ID Date Data Source [facility].[id number] 03/19/2020 05:30:00 AM EDT [facility] Name Value Range Interpretation Description [...] Data Source Liver 03/18/2020 06:51:00 AM EDT [facility] Profile.[id number] Name Value Range Interpretation Description Data Sup [...] s"> (3.5-5.0 G/DL)</content> ID Date Data Source HematologyRou.[id number] 03/18/2020 06:51:00 AM EDT [facility] 0400 Name Value Range Interpretation [...] Basophils 0.0-1.0 <content [facility] [#/volume] in styleCode="Bold [facility] Blood by ">Basophil Medical Automated count </content>0.5 [...] (< 1 %)</content> ID Date Data Source GFR(Creatinine).[id number] 03/18/2020 06:51:00 AM EDT [facility] 0-0400 Name Value Range Interpretation Code Description Data Pebbles rce(s) Supporting Document(s ) UNK > 60 <content [facility] styleCode="Bold"> Medical Cent er EGFR </content>229 GFR<content styleCode="Italic s"> (> 60 GFR)</content> ID Date Data Source Coagulation 03/18/2020 06:51:00 AM [facility] Rout.[id number] EDT Name Value Range Interpretation Description Data Sup porting Code Source(s) Document(s ) INR in 0.80-1.2 Above high normal <content [facility] Platelet poor 0 styleCode="Bold" [place] plasma by >INR Medical Coagulation </content>1.23 # Center assay H<content styleCode="Itali cs"> (0.80-1.20 #)</content> UNK 9.0-13.0 Above high normal <content [facility] styleCode="Bold" [place] >[facility] </content>13.7 Center SEC H<content styleCode="Itali cs"> (9.0-13.0 SEC)</content> aPTT in 25.1-36. Above high normal <content [facility] Platelet poor 5 styleCode="Bold" [place] plasma by >Partial Medical Coagulation Thromboplastin Center assay Time </content>66.7 SEC H<content styleCode="Itali cs"> (25.1-36.5 SEC)</content> ID Date Data Source CHMROUTINECCDA.[id number] 03/18/2020 06:51:00 AM EDT [facility] -0400 Name Value Range Interpretation Description [...] (6.3-8.2 G/DL)</content > ID Date Data Source BloodBank.[id number] 03/18/2020 06:51:00 AM EDT [facility] Name Value Range Interpretation Code Description Data Pebbles rce(s) Supporting Document(s ) UNK <content [facility] styleCode="Bold" Medical Cente r >Blood Type </content>GROUP O (Reference Range: not available)
UNK NEGATIVE <content [facility] styleCode="Bold" Medical Cente r >Antibody Screen </content>NEGATI VE <content styleCode="Itali cs"> (NEGATIVE )</content> UNK <content [facility]Code="Bold" [facility] >RH Type </content>POSITI VE (Reference Range: not available)
ID Date Data Source [facility].[id number] 03/18/2020 06:51:00 AM EDT [facility] Name Value Range Interpretation Description [...] Date Data Source Coagulation 03/17/2020 08:48:00 PM [facility] Rout.[id number] EDT Name Value Range Interpretation Description Data Sup porting Code Source(s) Document(s ) aPTT in 25.1-36. Above high normal <content [facility] Platelet poor 5 styleCode="Bold" [place] plasma by >Partial Medical Coagulation Thromboplastin Center assay Time </content>90.0 SEC H<content styleCode="Itali cs"> (25.1-36.5 SEC)</content> ID Date Data Source Stools.[id number] 03/17/2020 03:45:00 PM EDT [facility] Name Value Range Interpretation Code Description Data Pebbles rce(s) Supporting Document(s ) UNK NEGATIVE <content [facility] styleCode="Bold" Medical Cente r >Guaiac, Occult Blood </content>NEGATI VE <content styleCode="Itali cs"> (NEGATIVE )</content> ID Date Data Source Liver 03/17/2020 10:30:00 AM EDT [facility] Profile.[id number] Name Value Range Interpretation Description Data Sup [...] s"> (3.5-5.0 G/DL)</content> ID Date Data Source HematologyRou.[id number] 03/17/2020 10:30:00 AM EDT [facility] 0400 Name Value Range Interpretation Description [...] NORMAL <content [facility] styleCode="Bold [place] ">[employer] [facility] </content>IGH Center T <content styleCode="Ital ics"> (NORMAL )</content> ID Date Data Source GFR(Creatinine).[id number] 03/17/2020 10:30:00 AM EDT [facility] 0-0400 Name Value Range Interpretation Code Description Data Pebbles rce(s) Supporting Document(s ) UNK > 60 <content [facility] styleCode="Bold"> Medical Cent er EGFR </content>144 GFR<content styleCode="Italic s"> (> 60 GFR)</content> ID Date Data Source ChemistrySpecia.[id number] 03/17/2020 10:30:00 AM EDT [facility] 0-0400 Name Value Range Interpretation Description Data Sup porting Code Source(s) Document(s ) Cobalamin 239-931 <content Saint (Vitamin B12) styleCode="Mac Ish[place] [Mass/volume] d">Vitamin B12 Medical in Serum or </content>265 Center Plasma PG/ML<content styleCode="Zakia lics"> (239-931 PG/ML)</conten t> Folate > 3.0 <content [facility] [Mass/volume] styleCode="Mac [place] in Serum or d">Folic Acid Medical Plasma </content>4.27 Center NG/ML<content styleCode="Zakia lics"> (> 3.0 NG/ML)</conten t> ID Date Data Source CHMROUTALICIACCDA.[id number] 03/17/2020 10:30:00 AM EDT [facility] -0400 Name Value Range Interpretation [...] ics"> (6.3-8.2 G/DL)</content> ID Date Data Source CardiacMarkers.[id number] 03/17/2020 10:30:00 AM EDT [facility] -0400 Name Value Range Interpretation Description Data Sup porting Code Source(s) Document(s ) Troponin < 0.034 <content Saint I.cardiac styleCode="Bold [place] [Mass/volume ">Troponin I Medical ] in Serum </content>< Center or Plasma 0.012 NG/ML<content styleCode="Ital ics"> (< 0.034 NG/ML)</content > ID Date Data Source [facility][id number] 03/17/2020 10:30:00 AM EDT [facility] Name Value Range Interpretation Description Data Sup porting Code Source(s) Document(s ) Sodium 137-145 <content Saint [Moles/volume] in styleCode="Bold"> [facility] Serum or Plasma Sodium Medical </content>141 Center MEQ/L<content styleCode="Italic s"> (137-145 MEQ/L)</content> Chloride 98-107 <content [facility] [Moles/volume] in styleCode="Bold"> [facility] Serum or Plasma Chloride Medical </content>105 Center MEQ/L<content styleCode="Italic s"> (98-107 MEQ/L)</content> Potassium 3.5-5.3 Below low <content Saint [Moles/volume] in normal styleCode="Bold"> [facility] Serum or Plasma Potassium Medical </content>3.2 Center [...] s"> (0.2-1.3 MG/DL)</content> ID Date Data Source CardiacMarkers.[id number] 03/17/2020 07:25:00 AM EDT [facility] -0400 Name Value Range Interpretation Description Data Sup porting Code Source(s) Document(s ) Troponin < 0.034 <content [facility] I.cardiac styleCode="Bold [place] [Mass/volume ">Troponin I Medical ] in Serum </content>< Center or Plasma 0.012 NG/ML<content styleCode="Ital ics"> (< 0.034 NG/ML)</content > ID Date Data Source HematologyRou.[id number] 03/17/2020 07:06:00 AM EDT [facility] 0400 Name Value Range Interpretation [...] (0.0 KCUMM)</content > ID Date Data Source GFR(Creatinine).[id number] 03/17/2020 07:06:00 AM EDT [facility] 0-0400 Name Value Range Interpretation Code Description Data Pebbles rce(s) Supporting Document(s ) UNK > 60 <content [facility] styleCode="Bold"> Medical Cent er EGFR </content>144 GFR<content styleCode="Italic s"> (> 60 GFR)</content> ID Date Data Source CHMROUTINECCDA.[id number] 03/17/2020 07:06:00 AM EDT [facility] -0400 Name Value Range Interpretation [...] (1.6-2.3 MG/DL)</conten t> ID Date Data Source [facility].[id number] 03/17/2020 07:06:00 AM EDT [facility] Name Value Range Interpretation [...] (> 60 GFR)</content> ID Date Data Source [id number] 03/17/2020 12:00:00 AM EDT [facility] Name Value Range Interpretation Code Description Data Pebbles rce(s) Supporting Document(s ) 2019-nCoV [facility] RNA XXX CHERRI+probe- Imp This lab was ordered by [facility] and reported by [employer] [facility]. ID Date Data Source [id number] 02/11/2020 02:59:00 PM EDT [facility] Name Value Range Interpretation Description Data Sup porting Code Source(s) Document(s ) SARS [facility] coronavirus 2 RNA This lab was ordered by [facility] and reported by [facility]. ID Date Data Source [id number] 01/13/2020 11:43:00 PM EDT [facility] Name Value Range Interpretation Description Data Sup porting Code Source(s) Document(s ) SARS [facility] coronavirus 2 RNA This lab was ordered by Miguel vergara[facility] and reported by [facility]. ID Date Data Source [id number] 01/11/2020 11:30:00 AM EDT [facility] Name Value Range Interpretation Description Data Sup porting Code Source(s) Document(s ) SARS [facility] coronavirus 2 RNA This lab was ordered by [facility] and reported by [facility]. ID Date Data Source HematologyRou.[id number] 12/30/2019 11:00:00 PM EDT [facility] 0400 Name Value Range Interpretation [...] high <content Saint distribution 5 normal styleCode="Amberly Jacomes width [Ratio] by ">Red Cell Medical Automated [...] ics"> (8.0-11.0 FL)</content> ID Date Data Source GFR(Creatinine).[id number] 12/30/2019 11:00:00 PM EDT [facility] 0-0400 Name Value Range Interpretation Code Description Data Pebbles rce(s) Supporting Document(s ) UNK > 60 <content [facility] styleCode="Bold"> Medical Cent er EGFR </content>144 GFR<content styleCode="Italic s"> (> 60 GFR)</content> ID Date Data Source CHMROUTINECCDA.[id number] 12/30/2019 11:00:00 PM EDT [facility] -0400 Name Value Range Interpretation [...] (2.5-4.5 MG/DL)</conten t> ID Date Data Source [facility].[id number] 12/30/2019 11:00:00 PM EDT [facility] Name Value Range Interpretation Description [...] Jacomes in Serum or d">Glucose Medical Plasma </content>102 Center MG/DL<content styleCode="Zakia lics"> (74-106 MG/DL)</conten t> Calcium 8.4-10.2 <content [facility] [Mass/volume] styleCode="Mac Jacomes in Serum or d">Calcium Medical Plasma </content>8.5 Center MG/DL<content styleCode="Zakia lics"> (8.4-10.2 MG/DL)</conten t> UNK > 60 <content Saint styleCode="Mac Jacomes d">EGFR Medical </content>144 Center GFR<content styleCode="Zakia lics"> (> 60 GFR)</content> ID Date Data Source HematologyRou.[id number] 12/25/2019 12:50:00 AM EDT [facility] 0400 Name Value Range Interpretation Description [...] (0.0 KCUMM)</content > ID Date Data Source GFR(Creatinine).[id number] 12/25/2019 12:50:00 AM EDT [facility] 0-0400 Name Value Range Interpretation Code Description Data Pebbles rce(s) Supporting Document(s ) UNK > 60 <content [facility] [place] styleCode="Bold"> Medical Cent er EGFR </content>178 GFR<content styleCode="Italic s"> (> 60 GFR)</content> ID Date Data Source CardiacMarkers.[id number] 12/25/2019 12:50:00 AM EDT [facility] -0400 Name Value Range Interpretation Description Data Sup porting Code Source(s) Document(s ) Troponin < 0.034 <content [facility] I.cardiac styleCode="Bold Ish[place] [Mass/volume ">Troponin I Medical ] in Serum </content>< Center or Plasma 0.012 NG/ML<content styleCode="Ital ics"> (< 0.034 NG/ML)</content > ID Date Data Source [facility][id number] 12/25/2019 12:50:00 AM EDT [facility] Name Value Range Interpretation Description Data Sup porting Code Source(s) Document(s ) Sodium 137-145 <content Saint [Moles/volume] styleCode="Mac Ish[place] in Serum or d">Sodium Medical Plasma </content>139 Center MEQ/L<content styleCode="Zakia lics"> (137-145 MEQ/L)</conten t> Potassium 3.5-5.3 Below lower panic <content Saint [Moles/volume] limits styleCode="Mac Ish[place] in Serum or d">Potassium Medical Plasma </content><con Center tent styleCode="Mac d">2.5 MEQ/L LL</content><c ontent styleCode="Zaika lics"> (3.5-5.3 MEQ/L)</conten t> UNK 9-20 Below [...] (8.4-10.2 MG/DL)</conten t> ID Date Data Source HematologyRou.[id number] 12/03/2019 08:37:00 PM EDT [facility] 0400 Name Value Range Interpretation [...] ics"> (NORMAL )</content> ID Date Data Source GFR(Creatinine).[id number] 12/03/2019 08:37:00 PM EDT [facility] 0-0400 Name Value Range Interpretation Code Description Data Pebbles rce(s) Supporting Document(s ) UNK > 60 <content [facility] styleCode="Bold"> Medical Cent er EGFR </content>178 GFR<content styleCode="Italic s"> (> 60 GFR)</content> ID Date Data Source CHMROUTINECCDA.[id number] 12/03/2019 08:37:00 PM EDT [facility] -0400 Name Value Range Interpretation Description Data Sup porting Code Source(s) Document(s ) Magnesium 1.6-2.3 Below low normal <content [facility] [Mass/volume] styleCode="Mac Ish[place] in Serum or d">Magnesium Medical Plasma </content>1.5 Center MG/DL L<content styleCode="Zakai lics"> (1.6-2.3 MG/DL)</conten t> ID Date Data Source [facility].[id number] 12/03/2019 08:37:00 PM EDT [facility] Name Value Range Interpretation Description [...] (> 60 GFR)</content> ID Date Data Source [id number] 11/27/2019 11:55:00 AM EDT [facility] Name Value Range Interpretation Description Data Sup porting Code Source(s) Document(s ) SARS [facility] CORONAVIRUS 2 RNA This lab was ordered by [facility] and reported by [facility]. ID Date Data Source Liver 11/25/2019 12:40:00 PM EDT [facility] Profile.[id number] Name Value Range Interpretation Description Data Sup [...] Range: not available)
ID Date Data Source HematologyRou.[id number] 11/25/2019 12:40:00 PM EDT [facility] 0400 Name Value Range Interpretation [...] NORMAL <content Saint styleCode="Bold Ishaan ">Macrocyte Medical </content>[facility] Center T <content styleCode="Ital ics"> (NORMAL )</content> UNK NORMAL <content Saint styleCode="Bold Ish[place] ">Microcyte Medical </content>[facility] Center T <content styleCode="Ital ics"> (NORMAL )</content> UNK NORMAL <content [facility] styleCode="Bold Ishaan ">Hypochromia Medical </content>[facility] T <content styleCode="Ital ics"> (NORMAL )</content> ID Date Data Source GFR(Creatinine).[id number] 11/25/2019 12:40:00 PM EDT [facility] 0-0400 Name Value Range Interpretation Code Description Data Pebbles rce(s) Supporting Document(s ) UNK <content [facility] styleCode="Bold"> Medical Cent er EGFR </content>Test not performed. GFR (Reference Range: not available)
ID Date Data Source Coagulation 11/25/2019 12:40:00 PM [facility] Rout.[id number] EDT Name Value Range Interpretation Description Data Sup porting Code Source(s) Document(s ) UNK 9.0-13.0 <content styleCode="Bold" Ishaan >Protime Medical </content>11.9 Center SEC<content styleCode="Itali cs"> (9.0-13.0 SEC)</content> INR in 0.80-1.2 <content Saint Platelet poor 0 styleCode="Bold" Ishaan plasma by >INR Medical Coagulation </content>1.07 Center assay #<content styleCode="Itali cs"> (0.80-1.20 #)</content> aPTT in 25.1-36. <content Saint Platelet poor 5 styleCode="Bold" Ish[place] plasma by >Partial Medical Coagulation Thromboplastin Center assay Time </content>30.4 SEC<content styleCode="Itali cs"> (25.1-36.5 SEC)</content> ID Date Data Source CHMROUTINECCDA.[id number] 11/25/2019 12:40:00 PM EDT [facility] -0400 Name Value Range Interpretation Description Data Sup porting Code Source(s) Document(s ) UNK <content [facility] [place] styleCode="Bold Medical ">Globulin Center </content>Test not performed. G/DL (Reference Range: not available)
UNK <content [facility] [place] styleCode="Bold Medical ">AG Ratio Center </content>Test not performed. (Reference Range: not available)
Protein <content [facility] [place] [Mass/volume styleCode="Bold Medical ] in Serum ">Total Protein Center or Plasma </content>Test not performed. G/DL (Reference Range: not available)
ID Date Data Source CardiacMarkers.[id number] 11/25/2019 12:40:00 PM EDT [facility] -0400 Name Value Range Interpretation Description Data Sup porting Code Source(s) Document(s ) Troponin < 0.034 <content [facility] I.cardiac styleCode="Bold Ish[place] [Mass/volume ">Troponin I Medical ] in Serum </content>< Center or Plasma 0.012 NG/ML<content styleCode="Ital ics"> (< 0.034 NG/ML)</content > ID Date Data Source BMP.[id number] 11/25/2019 12:40:00 PM EDT [facility] Name Value Range Interpretation Description [...] Range: not available)
ID Date Data Source [id number] 11/12/2019 10:10:00 AM EDT [facility] Name Value Range Interpretation Description Data Sup porting Code Source(s) Document(s ) SARS [facility] CORONAVIRUS 2 RNA This lab was ordered by [facility] amalia Lynn and reported by [facility]. ID Date Data Source [id number] 10/06/2019 09:50:00 AM EDT [facility] Name Value Range Interpretation Code Description Data Pebbles rce(s) Supporting Document(s ) COV2 [facility] This lab was ordered by [facility] and reported by [facility]. ID Date Data Source [id number] 09/21/2019 05:56:00 PM EDT [facility] Name Value Range Interpretation Description Data Sup porting Code Source(s) Document(s ) SARS [facility] CORONAVIRUS 2 RNA This lab was ordered by [facility] and reported by [facility]. ID Date Data Source Microbiology.[id number] 09/18/2019 06:20:00 AM EDT [facility] 400 Name Value Range Interpretation Code Description Data Pebbles rce(s) Supporting Document(s ) UNK <item><content [facility] styleCode="Bold"> Medical Cent er Culture Status </content>
<t able><tbody><tr>< td>Specimen Number:</td><td>[id number]</td></tr ><tr><td>Sample Collection Date/Time: </td><td>09/18/2019 6:20 AM</td></tr><tr>< td>Specimen Source:</td><td>B LOOD</td></tr><tr ><td>Blood Culture:</td><td> Collection Plate Date: 09/18/2019 06:41 </td></tr><tr><td >Culture Report:</td><td>N O GROWTH AFTER 48 HOURS </td></tr><tr><td >Culture Status:</td><td>P reliminary </td></tr></tbody ></table></item> UNK <item><content [facility] styleCode="Bold"> Medical [facility] Culture Report </content>
<t able><tbody><tr>< td>Specimen Number:</td><td>[id number]</td></tr ><tr><td>Sample Collection Date/Time: </td><td>09/18/2019 6:20 AM</td></tr><tr>< td>Specimen Source:</td><td>B LOOD</td></tr><tr ><td>Blood Culture:</td><td> Collection Plate Date: 09/18/2019 06:41 </td></tr><tr><td >Culture Status:</td><td>P reliminary </td></tr><tr><td >Culture Report:</td><td>N O GROWTH AFTER 48 HOURS </td></tr></tbody ></table></item> ID Date Data Source Microbiology.[id number] 09/18/2019 06:05:00 AM EDT [facility] 400 Name Value Range Interpretation Code Description Data Pebbles rce(s) Supporting Document(s ) UNK <item><content [facility] styleCode="Bold"> Medical [facility] Culture Report </content>
<t able><tbody><tr>< td>Specimen Number:</td><td>[id number]</td></tr ><tr><td>Sample Collection Date/Time: </td><td>09/18/2019 6:05 AM</td></tr><tr>< td>Specimen Source:</td><td>B LOOD</td></tr><tr ><td>Blood Culture:</td><td> Collection Plate Date: 09/18/2019 06:41 </td></tr><tr><td >Culture Status:</td><td>P reliminary </td></tr><tr><td >Culture Report:</td><td>N O GROWTH AFTER 48 HOURS </td></tr></tbody ></table></item> UNK <item><content [facility] styleCode="Bold"> Medical [facility] Culture Status </content>
<t able><tbody><tr>< td>Specimen Number:</td><td>[id number]</td></tr ><tr><td>Sample Collection Date/Time: </td><td>09/18/2019 6:05 AM</td></tr><tr>< td>Specimen Source:</td><td>B LOOD</td></tr><tr ><td>Culture Report:</td><td>N O GROWTH AFTER 48 HOURS </td></tr><tr><td >Culture Status:</td><td>P reliminary </td></tr><tr><td >Blood Culture:</td><td> Collection Plate Date: 09/18/2019 06:41 </td></tr></tbody ></table></item> ID Date Data Source HematologyRou.[id number] 09/17/2019 11:54:00 PM EDT [facility] 0400 Name Value Range Interpretation Code Description Data Supporting Source(s) Document(s ) UNK 0.5-1.5 Below low normal <content [facility] styleCode="Bold"> Medical Retic % Center </content>0.40 % L<content styleCode="Italic s"> (0.5-1.5 %)</content> UNK 0.018-0.1 Below low normal <content [facility] styleCode="Bold"> Medical Reticulocyte Center Absolute Count </content>0.0148 MCUMM L<content styleCode="Italic s"> (0.018-0.1 MCUMM)</content> UNK 9.3-17.4 <content [facility] styleCode="Bold"> [facility] Immature Center Reticulocyte Fraction </content>15.9 %<content styleCode="Italic s"> (9.3-17.4 %)</content> UNK 30.0-38.0 Below low normal <content [facility] styleCode="Bold"> [facility] Reticulocyte Center Hemoglobin Equivalent </content>19.5 PG L<content styleCode="Italic s"> (30.0-38.0 PG)</content> ID Date Data Source HematologyRou.[id number] 09/17/2019 11:42:00 PM EDT [facility] 0400 Name Value Range Interpretation Description Data Sup porting Code Source(s) Document(s ) Leukocytes 4.4-11.0 Below low normal <content Saint [#/volume] in styleCode="Bold [facility] Blood by ">White Blood Medical Automated count Cell Count Center </content>2.79 KCUMM L<content styleCode="Ital ics"> (4.4-11.0 KCUMM)</content > Erythrocytes 4.4-5.9 Below low normal <content Saint [#/volume] in styleCode="Bold [facility] Blood by ">Red Blood Medical Automated count [...] ics"> (8.0-11.0 [place])</content> ID Date Data Source GFR(Creatinine).[id number] 09/17/2019 11:42:00 PM EDT [facility] 0-0400 Name Value Range Interpretation Code Description Data Pebbles rce(s) Supporting Document(s ) UNK > 60 <content [facility] styleCode="Bold"> Medical Cent er EGFR </content>144 GFR<content styleCode="Italic s"> (> 60 GFR)</content> ID Date Data Source ChemistrySpecia.[id number] 09/17/2019 11:42:00 PM EDT [facility] 0-0400 Name Value Range Interpretation Description Data [...] (239-931 PG/ML)</conten t> ID Date Data Source [facility].[id number] 09/17/2019 11:42:00 PM EDT [facility] -0400 Name Value Range Interpretation Description [...] (2.5-4.5 MG/DL)</conten t> ID Date Data Source CardiacMarkers.[id number] 09/17/2019 11:42:00 PM EDT [facility] -0400 Name Value Range Interpretation Description Data Sup porting Code Source(s) Document(s ) Troponin < 0.034 <content [facility] I.cardiac styleCode="Bold Ishaan [Mass/volume ">Troponin I Medical ] in Serum </content>0.024 Center or Plasma NG/ML<content styleCode="Ital ics"> (< 0.034 NG/ML)</content > ID Date Data Source [facility][id number] 09/17/2019 11:42:00 PM EDT [facility] Name Value Range Interpretation Description [...] 60 <content Saint styleCode="Mac Jacomes d">EGFR Medical </content>144 Center GFR<content styleCode="Zakia lics"> (> 60 GFR)</content> Calcium 8.4-10.2 Below low normal <content [facility] [Mass/volume] styleCode="Mac Jacomes in Serum or d">Calcium Medical Plasma </content>7.8 Center MG/DL L<content styleCode="Zakia lics"> (8.4-10.2 MG/DL)</conten t> Glucose 74-106 <content [facility] [Mass/volume] styleCode="Mac Jacomes in Serum or d">Glucose Medical Plasma </content>100 Center MG/DL<content styleCode="Zakia lics"> (74-106 MG/DL)</conten t> ID Date Data Source Liver 09/06/2019 03:21:00 AM EDT [facility] Profile.[id number] Name Value Range Interpretation Description Data Sup [...] s"> (0.2-1.3 MG/DL)</content> ID Date Data Source HematologyRou.[id number] 09/06/2019 03:21:00 AM EDT [facility] 0400 Name Value Range Interpretation Description [...] Eosinophils 0-5.0 <content Saint [#/volume] in styleCode="Bold [facility] Blood by ">Eosinophil Medical Automated count </content>0.0 [...] ics"> (0 /100)</content> ID Date Data Source GFR(Creatinine).[id number] 09/06/2019 03:21:00 AM EDT [facility] 0-0400 Name Value Range Interpretation Code Description Data Pebbles rce(s) Supporting Document(s ) UNK > 60 <content [facility] styleCode="Bold"> Medical Cent er EGFR </content>230 GFR<content styleCode="Italic s"> (> 60 GFR)</content> ID Date Data Source [id number] 09/06/2019 03:21:00 AM EDT [facility] -0400 Name Value Range Interpretation Description [...] (2.5-4.5 MG/DL)</conten t> ID Date Data Source [facility].[id number] 09/06/2019 03:21:00 AM EDT [facility] Name Value Range Interpretation Description [...] s"> (3.5-5.0 G/DL)</content> ID Date Data Source CHMROUTINECCDA.[id number] 09/05/2019 10:28:00 AM EDT [facility] -0400 Name Value Range Interpretation Description Data Sup porting Code Source(s) Document(s ) Lactate 0.7-2.0 <content [facility] [Mass/volum styleCode="Bold Medical e] in Serum ">Lactic Acid Center or Plasma </content>1.9 MMOLL<content styleCode="Ital ics"> (0.7-2.0 MMOLL)</content > ID Date Data Source [id number] 09/05/2019 10:24:00 AM EDT [facility] Name Value Range Interpretation Code Description Data Pebbles rce(s) Supporting Document(s ) RESULT [facility] This lab was ordered by [facility] and reported by [facility] [place]. ID Date Data Source Microbiology.[id number] 09/05/2019 10:17:00 AM EDT [facility] 400 Name Value Range Interpretation Code Description Data Pebbles rce(s) Supporting Document(s ) UNK <item><content [facility] styleCode="Bold"> Medical Cent er Culture Status </content>
<t able><tbody><tr>< td>Specimen Number:</td><td>[id number]</td></tr ><tr><td>Sample Collection Date/Time: </td><td> 0 10:17 AM</td></tr><tr>< td>Specimen Source:</td><td>B LOOD</td></tr><tr ><td>Blood Culture:</td><td> Collection Plate Date: 09/05/2019 10:23 </td></tr><tr><td >Culture Status:</td><td>P reliminary </td></tr><tr><td >Culture Report:</td><td>C ulture in progress </td></tr><tr><td >Gram Stain:</td><td>GR AM POSITIVE COCCI IN CLUSTERS NOTIFIED WITH READ-BACK KERVIN ROLLE RN </td></tr></tbody ></table></item> UNK <item><content [facility] styleCode="Bold"> Medical Cent er Culture Report </content>
<t able><tbody><tr>< td>Specimen Number:</td><td>[id number]</td></tr ><tr><td>Sample Collection Date/Time: </td><td> 0 10:17 AM</td></tr><tr>< td>Specimen Source:</td><td>B LOOD</td></tr><tr ><td>Gram Stain:</td><td>GR AM POSITIVE COCCI IN CLUSTERS NOTIFIED WITH READ-BACK EKRVIN ROLLE RN </td></tr><tr><td >Culture Report:</td><td>C ulture in progress </td></tr><tr><td >Culture Status:</td><td>P reliminary </td></tr><tr><td >Blood Culture:</td><td> Collection Plate Date: 09/05/2019 10:23 </td></tr></tbody ></table></item> ID Date Data Source Microbiology.[id number] 09/05/2019 10:16:00 AM EDT [facility] 400 Name Value Range Interpretation Code Description Data Pebbles rce(s) Supporting Document(s ) UNK <item><content [facility] styleCode="Bold"> [facility] Culture Report </content>
<t able><tbody><tr>< td>Specimen Number:</td><td>[id number]</td></tr ><tr><td>Sample Collection Date/Time: </td><td> 0 10:16 AM</td></tr><tr>< td>Specimen Source:</td><td>B LOOD</td></tr><tr ><td>Blood Culture:</td><td> Collection Plate Date: 09/05/2019 10:24 </td></tr><tr><td >Culture Status:</td><td>P reliminary </td></tr><tr><td >Culture Report:</td><td>C ulture in progress </td></tr></tbody ></table></item> UNK <item><content [facility] styleCode="Bold"> Medical Cent er Culture Status </content>
<t able><tbody><tr>< td>Specimen Number:</td><td>[id number]</td></tr ><tr><td>Sample Collection Date/Time: </td><td> 0 10:16 AM</td></tr><tr>< td>Specimen Source:</td><td>B LOOD</td></tr><tr ><td>Culture Report:</td><td>C ulture in progress </td></tr><tr><td >Culture Status:</td><td>P reliminary </td></tr><tr><td >Blood Culture:</td><td> Collection Plate Date: 09/05/2019 10:24 </td></tr></tbody ></table></item> ID Date Data Source Liver 09/05/2019 10:16:00 AM EDT [facility] Profile.[id number] Name Value Range Interpretation Description Data Sup [...] s"> (0.2-1.3 MG/DL)</content> ID Date Data Source HematologyRou.[id number] 09/05/2019 10:16:00 AM EDT [facility] 0400 Name Value Range Interpretation Description Data Sup porting Code Source(s) Document(s ) Hemoglobin 13.5-17. Below low normal <content [facility] [Mass/volume] in 5 styleCode="Bold [place] Blood ">Hemoglobin Medical </content>8.4 Center G/DL L<content styleCode="Ital ics"> (13.5-17.5 G/DL)</content> Erythrocytes 4.4-5.9 Below low normal <content [facility] [#/volume] in styleCode="Bold [place] Blood by ">Red Blood Medical Automated count [...] ics"> (0-0.1 KCUMM)</content > UNK NORMAL <content [facility] styleCode="Bold [place] ">Anisocyte Medical </content>SLIGH Center T <content styleCode="Ital ics"> (NORMAL )</content> UNK NORMAL <content [facility] styleCode="Bold [place] ">Microcyte Medical </content>IGH Center T <content styleCode="Ital ics"> (NORMAL )</content> UNK NORMAL <content [facility] styleCode="Bold [place] ">Macrocyte Medical </content>IGH Center T <content styleCode="Ital ics"> (NORMAL )</content> UNK NORMAL <content [facility] styleCode="Bold [place] ">Hypochromia Medical </content>[facility] Center T <content styleCode="Ital ics"> (NORMAL )</content> ID Date Data Source GFR(Creatinine).[id number] 09/05/2019 10:16:00 AM EDT [facility] 0-0400 Name Value Range Interpretation Code Description Data Pebbles rce(s) Supporting Document(s ) UNK > 60 <content [facility] styleCode="Bold"> Medical Cent er EGFR </content>178 GFR<content styleCode="Italic s"> (> 60 GFR)</content> ID Date Data Source CHMROUTINECCDA.[id number] 09/05/2019 10:16:00 AM EDT [facility] -0400 Name Value Range Interpretation Description Data Sup porting Code Source(s) Document(s ) UNK 2.3-3.5 <content [facility] styleCode="Bold Medical ">Globulin Center </content>2.6 G/DL<content styleCode="Ital ics"> (2.3-3.5 G/DL)</content> UNK >= 1.0 <content [facility] styleCode="Bold Medical ">AG Ratio Center </content>1.3 <content styleCode="Ital ics"> (>= 1.0 )</content> Protein 6.3-8.2 Below low normal <content [facility] [Mass/volum styleCode="Bold Medical e] in Serum ">Total Protein Center or Plasma </content>6.0 G/DL L<content styleCode="Ital ics"> (6.3-8.2 G/DL)</content> ID Date Data Source [facility][id number] 09/05/2019 10:16:00 AM EDT [facility] Name Value Range Interpretation [...] Data Source Liver 08/10/2019 01:50:00 AM EST [facility] Profile.[id number] Name Value Range Interpretation Description Data Sup [...] styleCode="Italic s"> (38-126 IU/L)</content> Alanine 7-50 <content [facility] aminotransferase styleCode="Bold"> Stephan hs [Enzymatic Alanine [...] s"> (3.5-5.0 G/DL)</content> ID Date Data Source HematologyRou.[id number] 08/10/2019 01:50:00 AM [facility] 0500 Name Value Range Interpretation Description [...] ics"> (0 /100)</content> ID Date Data Source GFR(Creatinine).[id number] 08/10/2019 01:50:00 AM [facility] 0-0500 Name Value Range Interpretation Code Description Data Pebbles rce(s) Supporting Document(s ) UNK > 60 <content [facility] styleCode="Bold"> Medical Cent er EGFR </content>144 GFR<content styleCode="Italic s"> (> 60 GFR)</content> ID Date Data Source [facility][id number] 08/10/2019 01:50:00 AM EST [facility] Name Value Range Interpretation Description [...] s"> (38-126 IU/L)</content> ID Date Data Source Urinalysis.[id number] 08/09/2019 08:03:00 AM [facility] 0 Name Value Range Interpretation Description Data Sup porting Code Source(s) Document(s ) Color of Urine YELLOW <content [facility] styleCode="[facility] d">Color, Medical Urine Center </content>YELL OW <content styleCode="Zakia lics"> (YELLOW )</content> UNK CLEAR <content [facility] styleCode="[facility] d">Urine Medical Clarity Center </content>COLIN R <content styleCode="Zakia lics"> (CLEAR )</content> UNK NEGATIVE <content [facility] styleCode="[facility] d">Urine Medical Bilirubin Center </content>NEGA TIVE [...] by Test d">Urine Medical strip Specific Center Ideal </content>1.01 0 L<content styleCode="Zakia lics"> (1.015-1.025 )</content> Urobilinogen 0.2-1.0 <content [facility] [Units/volume] styleCode="[facility] [place] in Urine by d">Urine Medical Test strip Urobilinogen Center </content>0.2 MG/DL<content styleCode="Zakia lics"> (0.2-1.0 MG/DL)</conten t> Protein NEGATIVE <content [facility] [Mass/volume] styleCode="Mac Quiros in [...] Data Source Liver 08/09/2019 08:03:00 AM EST [facility] Profile.[id number] Name Value Range Interpretation Description Data Sup [...] s"> (0.2-1.3 MG/DL)</content> ID Date Data Source HematologyRou.[id number] 08/09/2019 08:03:00 AM [facility] 0500 Name Value Range Interpretation Description Data Sup porting Code Source(s) Document(s ) Leukocytes 4.4-11.0 <content [facility] [#/volume] in styleCode="Bold [facility] Blood by ">White Blood Medical Automated count Cell Count Center </content>6.20 KCUMM<content styleCode="Ital ics"> (4.4-11.0 KCUMM)</content > Hemoglobin 13.5-17. Below low normal <content [facility] [Mass/volume] in 5 styleCode="Bold [facility] Blood ">Hemoglobin Medical </content>9.4 Center G/DL L<content [...] ics"> (0 /100)</content> ID Date Data Source GFR(Creatinine).[id number] 08/09/2019 08:03:00 AM [facility] 0-0500 Name Value Range Interpretation Code Description Data Pebbles rce(s) Supporting Document(s ) UNK > 60 <content [facility] styleCode="Bold"> Medical Cent er EGFR </content>178 GFR<content styleCode="Italic s"> (> 60 GFR)</content> ID Date Data Source CHMROUTINECCDA.[id number] 08/09/2019 08:03:00 AM [facility] -0500 Name Value Range Interpretation Description Data Sup porting Code Source(s) Document(s ) UNK 30-110 <content [facility] styleCode="Bold Medical ">Amylase Center </content>35 IU/L<content styleCode="Ital ics"> (30-110 IU/L)</content> Lipase 23-300 Below low normal <content [facility] [Enzymatic styleCode="Bold Medical activity/vo ">Lipase Center lume] in </content>19 Serum or IU/L L<content Plasma styleCode="Ital ics"> (23-300 IU/L)</content> ID Date Data Source [facility].[id number] 08/09/2019 08:03:00 AM [facility] Name Value Range Interpretation Description Data [...] Data Source Liver 07/28/2019 06:25:00 AM EST [facility] Profile.[id number] Name Value Range Interpretation Description Data Sup [...] s"> (0.0-0.3 MG/DL)</content> ID Date Data Source HematologyRou.[id number] 07/28/2019 06:25:00 AM [place] [facility] [facility] 0500 Name Value Range Interpretation Description Data Sup porting Code Source(s) Document(s ) Leukocytes 4.4-11.0 <content [facility] [#/volume] in styleCode="Bold [facility] Blood by ">White Blood Medical Automated count [...] ics"> (8.0-11.0 FL)</content> ID Date Data Source GFR(Creatinine).[id number] 07/28/2019 06:25:00 AM [facility] 0-0500 Name Value Range Interpretation Code Description Data Pebbles rce(s) Supporting Document(s ) UNK > 60 <content [facility] [place] styleCode="Bold"> Medical Cent er EGFR </content>178 GFR<content styleCode="Italic s"> (> 60 GFR)</content> ID Date Data Source CardiacMarkers.[id number] 07/28/2019 06:25:00 AM [facility] -0500 Name Value Range Interpretation Description Data Sup porting Code Source(s) Document(s ) Troponin < 0.034 <content [facility].cardiac styleCode="Bold [place] [Mass/volume ">Troponin I Medical ] in Serum </content>< Center or Plasma 0.012 NG/ML<content styleCode="Ital ics"> (< 0.034 NG/ML)</content > ID Date Data Source [facility].[id number] 07/28/2019 06:25:00 AM EST [facility] Name Value Range Interpretation [...] Date Data Source Liver 05/13/2019 11:52:00 AM [facility] Profile.[id number] Name Value Range Interpretation Description Data Sup [...] s"> (3.5-5.0 G/DL)</content> ID Date Data Source HematologyRou.[id number] 05/13/2019 11:52:00 AM [place] [facility] 0500 Name Value Range Interpretation Description [...] (0.0 KCUMM)</content > ID Date Data Source GFR(Creatinine).[id number] 05/13/2019 11:52:00 AM [facility] 0-0500 Name Value Range Interpretation Code Description Data Pebbles rce(s) Supporting Document(s ) UNK > 60 <content [facility] styleCode="Bold"> Medical Cent er EGFR </content>178 GFR<content styleCode="Italic s"> (> 60 GFR)</content> ID Date Data Source CHMROUTINECCDA.[id number] 05/13/2019 11:52:00 AM [facility] -0500 Name Value Range Interpretation Description [...] (2.5-4.5 MG/DL)</conten t> ID Date Data Source [id number] 05/13/2019 11:52:00 AM EST [facility] Name Value Range Interpretation Description Data Sup porting Code Source(s) Document(s ) Sodium 137-145 <content [facility] [Moles/volume] in styleCode="Bold"> [facility] Serum or Plasma Sodium Medical </content>137 Center MEQ/L<content styleCode="Italic s"> (137-145 MEQ/L)</content> Potassium 3.5-5.3 <content [facility] [Moles/volume] in styleCode="Bold"> [facility] Serum or Plasma Potassium Medical </content>3.6 Center [...] Alkaline 38-126 <content [facility] phosphatase styleCode="Bold"> [facility] [Enzymatic Alkaline Medical activity/volume] Phosphatase (ALP) Cente r in Serum or Plasma </content>103 IU/L<content styleCode="Italic s"> (38-126 IU/L)</content> ID Date Data Source HematologyRou.[id number] 05/10/2019 05:50:00 AM [place] [facility] 0500 Name Value Range Interpretation Description [...] (0.0 KCUMM)</content > ID Date Data Source GFR(Creatinine).[id number] 05/10/2019 05:50:00 AM [facility] 0-0500 Name Value Range Interpretation Code Description Data Pebbles rce(s) Supporting Document(s ) UNK > 60 <content [facility] [place] styleCode="Bold"> Medical Cent er EGFR </content>178 GFR<content styleCode="Italic s"> (> 60 GFR)</content> ID Date Data Source CHMROUTINECCDA.[id number] 05/10/2019 05:50:00 AM [facility] -0500 Name Value Range Interpretation Description [...] (1.6-2.3 MG/DL)</conten t> ID Date Data Source [id number] 05/10/2019 05:50:00 AM EST [facility] Name Value Range Interpretation Description Data Sup porting Code Source(s) Document(s ) Sodium 137-145 <content [facility] [Moles/volume] styleCode="Mac [place] in Serum or d">Sodium Medical Plasma </content>138 Center MEQ/L<content styleCode="Zkaia lics"> (137-145 MEQ/L)</conten t> Chloride 98-107 <content [...] t> Creatinine 0.5-1.3 <content [facility] [Mass/volume] styleCode="Mac Quiros in Serum or d">Creatinine Medical Plasma </content>0.5 Center MG/DL<content styleCode="Zakia lics"> (0.5-1.3 MG/DL)</conten t> Calcium 8.4-10.2 <content [facility] [Mass/volume] styleCode="Mac Jacomes in Serum or d">Calcium Medical Plasma </content>8.6 Center MG/DL<content styleCode="Zakia lics"> (8.4-10.2 MG/DL)</conten t> UNK > 60 <content [facility] styleCode="Mac Quiros d">EGFR Medical </content>178 Center GFR<content styleCode="Zakia lics"> (> 60 GFR)</content> ID Date Data Source Liver 05/09/2019 12:46:00 PM EST [facility] Profile.[id number] Name Value Range Interpretation Description Data Sup [...] s"> (3.5-5.0 G/DL)</content> ID Date Data Source GFR(Creatinine).[id number] 05/09/2019 12:46:00 PM [facility] 0-0500 Name Value Range Interpretation Code Description Data Pebbles rce(s) Supporting Document(s ) UNK > 60 <content [facility] styleCode="Bold"> Medical Cent er EGFR </content>178 GFR<content styleCode="Italic s"> (> 60 GFR)</content> ID Date Data Source CHMROUTINECCDA.[id number] 05/09/2019 12:46:00 PM [facility] -0500 Name Value Range Interpretation Description [...] (2.5-4.5 MG/DL)</conten t> ID Date Data Source [facility][id number] 05/09/2019 12:46:00 PM EST [facility] Name Value Range Interpretation Description Data Sup porting Code Source(s) Document(s ) Sodium 137-145 Below low <content [facility] [Moles/volume] in normal styleCode="Bold"> [facility] Serum or Plasma Sodium Medical </content>136 Center MEQ/L L<content styleCode="Italic s"> (137-145 MEQ/L)</content> Chloride 98-107 <content [facility] [Moles/volume] in styleCode="Bold"> [facility] Serum or Plasma Chloride Medical </content>102 [...] Data Source Liver 05/08/2019 07:35:00 AM EST [facility] Profile.[id number] Name Value Range Interpretation Description Data Sup [...] Alkaline 38-126 <content [facility] phosphatase styleCode="Bold"> [facility] [Enzymatic Alkaline Medical activity/volume] Phosphatase (ALP) Cente [...] s"> (3.5-5.0 G/DL)</content> ID Date Data Source LIPID.[id number] 05/08/2019 07:35:00 AM EST [facility] Name Value Range Interpretation Description Data Sup porting Code Source(s) Document(s ) Triglyceride < 150 <content [facility] [Mass/volume] in styleCode="Mac [place] Serum or Plasma d">Triglycerid [facility] </content>104 MG/DL<content styleCode="Zakia lics"> (< 150 MG/DL)</conten t> UNK > 60 Below low normal <content [facility] styleCode="[facility] [place] d">HDL- Medical Cholesterol Center </content>59 MG/DL L<content styleCode="Zakia lics"> (> 60 MG/DL)</conten t> Cholesterol -<200 <content [facility] [Mass/volume] in styleCode="Mac [place] Serum or Plasma d">Cholesterol Medical </content>154 Center MG/DL<content styleCode="Zakia lics"> (-<200 MG/DL)</conten t> UNK < 100 <content [facility] styleCode="[facility] [place] d">LDL-Cholest [facility] </content>74 MG/DL<content styleCode="Zakia lics"> (< 100 MG/DL)</conten t> ID Date Data Source HematologyRou.[id number] 05/08/2019 07:35:00 AM EST [facility] 0500 Name Value Range Interpretation Description [...] (0.0 KCUMM)</content > ID Date Data Source GFR(Creatinine).[id number] 05/08/2019 07:35:00 AM [facility] 0-0500 Name Value Range Interpretation Code Description Data Pebbles rce(s) Supporting Document(s ) UNK > 60 <content [facility] styleCode="Bold"> Medical Cent er EGFR </content>178 GFR<content styleCode="Italic s"> (> 60 GFR)</content> ID Date Data Source CHMROUTINECCDA.[id number] 05/08/2019 07:35:00 AM [facility] -0500 Name Value Range Interpretation Description [...] (1.6-2.3 MG/DL)</conten t> ID Date Data Source [facility].[id number] 05/08/2019 07:35:00 AM EST [facility] Name Value Range Interpretation Description Data Sup porting Code Source(s) Document(s ) Sodium 137-145 Below low <content [facility] [Moles/volume] in normal styleCode="Bold"> [facility] Serum or Plasma Sodium Medical </content>136 Center MEQ/L L<content styleCode="Italic s"> (137-145 MEQ/L)</content> Chloride 98-107 <content [facility] [Moles/volume] in styleCode="Bold"> [facility] Serum or Plasma Chloride Medical </content>99 Center [...] s"> (3.5-5.0 G/DL)</content> ID Date Data Source Urinalysis.[id number] 05/07/2019 04:00:00 PM [facility] 0 Name Value Range Interpretation Description Data Sup porting Code Source(s) Document(s ) Color of Urine YELLOW <content [facility] styleCode="[facility] d">Color, Medical Urine Center </content>AMBE R <content styleCode="Zakia lics"> (YELLOW )</content> UNK CLEAR <content [facility] styleCode="[facility] d">Urine Medical Clarity Center </content>CLOU DY [...] by Test d">Urine Medical strip Specific Center Ideal </content>1.01 0 L<content styleCode="Zakia lics"> (1.015-1.025 )</content> [...] (NEGATIVE )</content> UNK 0-3 <content [facility] styleCode="Mac Jacomes d">Urine White Medical Blood Cell Center </content>20 [...] HPF)</content> UNK NONE SEEN <content [facility] styleCode="Mac Jacomes d">Epithelial Medical Cell Center </content>10 - 20 HPF<content styleCode="Zakia lics"> (NONE SEEN HPF)</content> ID Date Data Source CHMROUTINECCDA.[id number] 05/07/2019 04:00:00 PM [facility] -0500 Name Value Range Interpretation Description Data Sup porting Code Source(s) Document(s ) Cannabinoids <content [facility] [Presence] in styleCode="[facility] Urine by Screen d">Cannabinoid Medical method >50 ng/mL s Center </content>NEGA TIVE NG/ML (Reference Range: not available)<br/ > ID Date Data Source Liver 05/07/2019 02:18:00 PM [facility] Profile.[id number] Name Value Range Interpretation Description Data Sup [...] IU/L (Reference Range: not available)
Alkaline <content [facility] phosphatase styleCode="Bold"> [facility] [Enzymatic Alkaline Medical activity/volume] Phosphatase (ALP) Cente [...] s"> (3.5-5.0 G/DL)</content> ID Date Data Source GFR(Creatinine).[id number] 05/07/2019 02:18:00 PM [facility] 0-0500 Name Value Range Interpretation Code Description Data Pebbles rce(s) Supporting Document(s ) UNK > 60 <content [facility] styleCode="Bold"> Medical Cent er EGFR </content>178 GFR<content styleCode="Italic s"> (> 60 GFR)</content> ID Date Data Source [facility].[id number] 05/07/2019 02:18:00 PM EST [facility] Name Value Range Interpretation Description Data Sup porting Code Source(s) Document(s ) Sodium 137-145 <content [facility] [Moles/volume] in styleCode="Bold"> [facility] Serum or Plasma Sodium Medical </content>137 Center MEQ/L<content styleCode="Italic s"> (137-145 MEQ/L)</content> Potassium <content [facility] [Moles/volume] in styleCode="Bold"> [facility] Serum or Plasma Potassium Medical </content>Test [...] H<content styleCode="Italic s"> (0.2-1.3 MG/DL)</content> Alkaline <content [facility] phosphatase styleCode="Bold"> [facility] [Enzymatic Alkaline Medical activity/volume] Phosphatase (ALP) Cente [...] s"> (3.5-5.0 G/DL)</content> ID Date Data Source CHMROUTINECCDA.[id number] 05/07/2019 02:18:00 PM [facility] -0500 Name Value Range Interpretation Description Data Sup porting Code Source(s) Document(s ) UNK 2.3-3.5 <content [facility] styleCode="Bold Medical ">Globulin Center </content>2.9 G/DL<content styleCode="Ital ics"> (2.3-3.5 G/DL)</content> UNK >= 1.0 <content [facility] styleCode="Bold Medical ">AG Ratio Center </content>1.1 <content styleCode="Ital ics"> (>= 1.0 )</content> Protein 6.3-8.2 Below low normal <content [facility] [Mass/volum styleCode="Bold Medical e] in Serum ">Total Protein Center or Plasma </content>6.2 G/DL L<content styleCode="Ital ics"> (6.3-8.2 G/DL)</content> ID Date Data Source GFR(Creatinine).[id number] 05/07/2019 12:50:00 PM [place] [facility] 0-0500 Name Value Range Interpretation Code Description Data Pebbles rce(s) Supporting Document(s ) UNK <content [facility] styleCode="Bold"> Medical Cent er EGFR </content>Test not performed. GFR (Reference Range: not available)
ID Date Data Source BMP.[id number] 05/07/2019 12:50:00 PM EST [facility] Name Value Range Interpretation Description Data [...] Data Source Liver 05/07/2019 10:05:00 AM EST [facility] Profile.[id number] Name Value Range Interpretation Description Data Sup [...] Range: not available)
ID Date Data Source HematologyRou.[id number] 05/07/2019 10:05:00 AM EST [facility] 0500 Name Value Range Interpretation Description [...] (0.0 KCUMM)</content > ID Date Data Source GFR(Creatinine).[id number] 05/07/2019 10:05:00 AM EST [facility] 0-0500 Name Value Range Interpretation Code Description Data Pebbles rce(s) Supporting Document(s ) UNK <content [facility] styleCode="Bold"> Medical Cent er EGFR </content>Test not performed. GFR (Reference Range: not available)
ID Date Data Source BMP.[id number] 05/07/2019 10:05:00 AM EST [facility] Name Value Range Interpretation Description [...] Data Source Liver 02/19/2019 05:25:00 PM EDT [facility] Profile.[id number] Name Value Range Interpretation Description Data Sup [...] s"> (0.2-1.3 MG/DL)</content> ID Date Data Source HematologyRou.[id number] 02/19/2019 05:25:00 PM EDT [facility] 0400 Name Value Range Interpretation Description [...] Platelets 130-400 <content [facility] [#/volume] in styleCode="Bold [facility] Blood by ">Platelet Medical Automated count Count Center </content>175 KCUMM<content styleCode="Ital ics"> (130-400 KCUMM)</content > ID Date Data Source GFR(Creatinine).[id number] 02/19/2019 05:25:00 PM EDT [facility] 0-0400 Name Value Range Interpretation Code Description Data Pebbles rce(s) Supporting Document(s ) UNK > 60 <content [facility] styleCode="Bold"> Medical Cent er EGFR </content>144 GFR<content styleCode="Italic s"> (> 60 GFR)</content> ID Date Data Source [facility][id number] 02/19/2019 05:25:00 PM EDT [facility] Name Value Range Interpretation Description Data Sup porting Code Source(s) Document(s ) Sodium 137-145 <content [facility] [Moles/volume] in styleCode="Bold"> [facility] Serum or Plasma Sodium Medical </content>145 Center MEQ/L<content styleCode="Italic s"> (137-145 MEQ/L)</content> Potassium <content [facility] [Moles/volume] in styleCode="Bold"> [facility] Serum or Plasma Potassium Medical </content>Test Center not performed. MEQ/L (Reference Range: not available)
UNK 9-20 <content [facility] styleCode="Bold"> [place] BUN </content>9 Medical MG/DL<content Center [...] s"> (3.5-5.0 G/DL)</content> ID Date Data Source HematologyRou.[id number] 01/26/2019 09:36:00 PM EDT [facility] 0400 Name Value Range Interpretation [...] (0.0 KCUMM)</content > ID Date Data Source GFR(Creatinine).[id number] 01/26/2019 09:36:00 PM EDT [facility] 0-0400 Name Value Range Interpretation Code Description Data Pebbles rce(s) Supporting Document(s ) UNK > 60 <content [facility] styleCode="Bold"> Medical Cent er EGFR </content>90 GFR<content styleCode="Italic s"> (> 60 GFR)</content> ID Date Data Source BMP.[id number] 01/26/2019 09:36:00 PM EDT [facility] Name Value Range Interpretation Description [...] 60 <content [facility] styleCode="[facility] [place] d">EGFR Medical </content>90 Center GFR<content styleCode="Zakia lics"> (> 60 GFR)</content> Procedure Social History Code Duration Value Status Description Data Source(s ) Smoking 03/26/2020 Former Smoker completed Former Smoker [facility] 07:59:00 PM EDT Medical C enter Smoking 03/26/2020 Former Smoker completed Former Smoker [facility] 07:56:00 PM EDT Medical [facility] enter Smoking 03/24/2020 [...] Smoker completed [facility] 09:56:00 PM EDT Medical C enter Smoking 03/23/2020 Former Smoker completed [facility] 05:56:00 PM EDT Medical C enter Smoking 03/23/2020 Former Smoker completed Former [facility]oker [facility] 05:53:00 PM EDT Medical C enter Smoking 03/22/2020 Former Smoker completed Former Smoker [facility] 08:26:00 PM EDT Medical C enter [...] Smoker completed Former [facility] 11:05:00 PM EDT Medical C enter Smoking 03/13/2020 Former Smoker completed Former Sm[facility] 01:12:00 AM EDT Medical C enter Smoking 03/13/2020 Former Smoker completed Former Smoker [facility] 12:00:00 AM EDT Medical C enter Smoking 03/12/2020 Former Smoker completed Former Smoker [facility] 11:50:00 PM EDT Medical C enter [...] 03/05/2020 Former Smoker completed Former Smoker [facility] 07:28:00 PM EDT Medical C enter Smoking 03/05/2020 Former Smoker completed Former Smoker [facility] 07:21:00 PM EDT Medical C enter Smoking 03/03/2020 Former Smoker completed Former Smoker [facility] 08:26:00 PM EDT Medical C enter Smoking 03/03/2020 Former Smoker completed Former Smoker [facility] 08:05:00 PM EDT Medical C enter Smoking 03/03/2020 Former Smoker completed Former Smoker [facility] 08:02:00 PM EDT Medical C enter Smoking 03/01/2020 Former Smoker completed Former Smoker [facility] 01:11:00 PM EDT Medical C enter Smoking 03/01/2020 Former Smoker completed Former Smoker [facility] 12:40:00 PM EDT Medical C enter Smoking 03/01/2020 Former Smoker completed Former Smoker [facility] 12:33:00 PM EDT Medical C enter Smoking 02/29/2020 Former Smoker completed Former Smoker [facility] 01:00:00 PM EDT Medical C enter Smoking 02/29/2020 Former Smoker completed Former Smoker [facility] 12:40:00 PM EDT Medical C enter Smoking 02/29/2020 Former Smoker completed Former Smoker [facility] 12:40:00 PM EDT Medical C enter [...] 02/27/2020 Former Smoker completed Former Smoker [facility] 11:35:00 PM EDT Medical C enter Smoking 02/27/2020 Former Smoker completed Former Smoker [facility] 08:29:00 PM EDT Medical C enter [...] 01/24/2020 Former Smoker completed Former Smoker [facility] 01:56:00 PM EDT Medical C enter Smoking 01/24/2020 Former Smoker completed Former Smoker [facility] 01:45:00 PM EDT Medical C enter Smoking 01/20/2020 Former Smoker completed Former Smoker [facility] 05:45:00 PM EDT Medical C enter Smoking 01/20/2020 Former Smoker completed Former Smoker [facility] 03:50:00 PM EDT Medical C enter Smoking 01/19/2020 Former Smoker completed Former Smoker [facility] 11:23:00 AM EDT Medical C enter [...] Former Smoker [facility] 09:04:00 PM EDT Medical C enter [...] Former Smoker [facility] 11:25:00 PM EDT Medical C enter Smoking 12/24/2019 Former Smoker completed Former Smoker [facility] 11:19:00 PM EDT Medical C enter Smoking 12/22/2019 Former Smoker completed Former Smoker [facility] 04:56:00 PM EDT Medical C enter Smoking 12/22/2019 Former Smoker completed Former Smoker [facility] 04:48:00 PM EDT Medical C enter [...] Smoker completed Former Smoker [facility] 03:16:00 PM EDT Medical C enter Smoking 12/09/2019 Former Smoker completed Former Smoker [facility] 02:41:00 PM EDT Medical C enter Smoking 12/09/2019 Former Smoker completed Former Smoker [facility] 12:22:00 AM EDT Medical C enter Smoking 12/08/2019 Former Smoker completed Former Smoker [facility] 10:45:00 PM EDT Medical C enter Smoking 12/08/2019 Former Smoker completed Former Smoker [facility] 01:23:00 PM EDT Medical C enter [...] Former Smoker [facility] 02:00:00 PM EDT Medical C enter Smoking 12/03/2019 Former Smoker completed Former Smoker [facility] 01:50:00 PM EDT Medical C enter Smoking 12/03/2019 Former Smoker completed Former Smoker [facility] 01:04:00 AM EDT Medical C enter Smoking 12/02/2019 Former Smoker completed Former Smoker [facility] 08:34:00 PM EDT Medical C enter Smoking 12/02/2019 Former Smoker completed Former Smoker [facility] 08:22:00 PM EDT Medical C enter Smoking 11/30/2019 Former Smoker completed Former Smoker [facility] 09:40:00 PM EDT Medical C enter Smoking 11/30/2019 Former Smoker completed Former Smoker [facility] 04:42:00 PM EDT Medical C enter [...] Former Smoker [facility] 02:07:00 PM EDT Medical C enter [...] Smoking 11/05/2019 Former Smoker completed Former Smoker [facility] 02:08:00 PM EDT Medical C enter [...] Former Smoker [facility] 07:30:00 PM EDT Medical C enter [...] Smoker completed Former Smoker [facility] 03:20:00 PM EDT Medical C enter Smoking 10/30/2019 Former Smoker completed Former Smoker [facility] 03:12:00 PM EDT Medical C enter Smoking 10/28/2019 Former Smoker completed Former Smoker [facility] 09:18:00 PM EDT Medical C enter [...] Former Smoker [facility] 03:44:00 PM EDT Medical C enter Smoking 10/21/2019 Former Smoker completed Former Smoker [facility] 03:41:00 PM EDT Medical C enter Smoking 10/21/2019 Former Smoker completed Former Smoker [facility] 12:28:00 AM EDT Medical C enter Smoking 10/21/2019 Former Smoker completed Former Smoker [facility] 12:24:00 AM EDT Medical C enter Smoking 10/19/2019 Former Smoker completed Former Smoker [facility] 08:42:00 PM EDT Medical C enter Smoking 10/19/2019 Former Smoker completed Former Smoker [facility] 08:25:00 PM EDT Medical C enter Smoking 10/19/2019 Former Smoker completed Former Smoker [facility] 08:21:00 PM EDT Medical C enter Smoking 10/18/2019 Former Smoker completed Former Smoker [facility] 08:35:00 AM EDT Medical C enter [...] 10/06/2019 Former Smoker completed Former Smoker [facility] 09:43:00 AM EDT Medical C enter Smoking 10/06/2019 Former Smoker completed Former Smoker [facility] 09:36:00 AM EDT Medical C enter Smoking 10/05/2019 Former Smoker completed Former Smoker [facility] 09:05:00 PM EDT Medical C enter Smoking 10/05/2019 Former Smoker completed Former Smoker [facility] 08:54:00 PM EDT Medical C enter Smoking 10/05/2019 Former Smoker completed Former Smoker [facility] 08:52:00 PM EDT Medical C enter Smoking 09/19/2019 Former Smoker completed Former Smoker [facility] 07:45:00 AM EDT Medical C enter Smoking 09/18/2019 Occasional Smoker completed Occasional Smoker [facility] 04:16:00 AM EDT Medical C enter Smoking 09/17/2019 Former Smoker completed Former Smoker [facility] 11:35:00 PM EDT Medical C enter [...] 09/15/2019 Former Smoker completed Former Smoker [facility] 06:32:00 AM EDT Medical C enter Smoking 09/14/2019 Former Smoker completed Former Smoker [facility] 10:00:00 PM EDT Medical C enter Smoking 09/14/2019 Former Smoker completed Former Smoker [facility] 09:36:00 PM EDT Medical C enter Smoking 09/14/2019 Former Smoker completed Former Smoker [facility] 09:24:00 PM EDT Medical C enter Smoking 09/13/2019 Former Smoker completed Former Smoker [facility] 08:02:00 PM EDT Medical C enter Smoking 09/13/2019 Former Smoker completed Former Smoker [facility] 07:43:00 PM EDT Medical C enter Smoking 09/13/2019 Former Smoker completed Former Smoker [facility] 09:11:00 AM EDT Medical C enter Smoking 09/13/2019 Former Smoker completed Former Smoker [facility] 09:02:00 AM EDT Medical C enter Smoking 09/13/2019 Former Smoker completed Former Smoker [facility] 07:14:00 AM EDT Medical C enter Smoking 09/12/2019 Former Smoker completed Former Smoker [facility] 07:21:00 AM EDT Medical C enter [...] Former Smoker [facility] 08:43:00 PM EDT Medical C enter Smoking 09/08/2019 Former Smoker completed Former Smoker [facility] 01:57:00 AM EDT Medical C enter Smoking 09/07/2019 Former Smoker completed Former Smoker [facility] 10:22:00 PM EDT Medical C enter Smoking 09/07/2019 Former Smoker completed Former Smoker [facility] 10:19:00 PM EDT Medical C enter Smoking 09/05/2019 Occasional Smoker completed Occasional Smoker [facility] 05:58:00 PM EDT Medical C enter Smoking 09/05/2019 Former Smoker completed Former Smoker [facility] 02:09:00 PM EDT Medical C enter Smoking 09/05/2019 Former Smoker completed Former Smoker [facility] 08:05:00 AM EDT Medical C enter [...] Denies Ever Smoked [facility] 06:55:00 PM EST Smoked Medical C enter [...] Ever completed Denies Ever Smoked [facility] 06:12:00 PM EST Smoked Medical C enter [...] Ever completed Denies Ever Smoked [facility] 04:17:00 PM EDT Smoked Medical C enter [...] Denies Ever completed Denies Ever Smoked [facility] 10:11:00 PM EDT Smoked Medical C enter [...] 12:15:00 PM EDT Smoked Medical C enter Vital Signs ID Date Data Source UNK Name Value Range Interpretation Code Description Data Source(s) Body temperature 36.734818 Kaylie 36.372085 Kaylie [facility] Respiratory rate 18 /min 18 /min [facility] Oxygen 97 % 97 % [facility] saturation in Medical Arterial blood Center by Pulse oximetry Heart rate 90 /min 90 /min [facility] Diastolic blood 75 mm[Hg] 75 mm[Hg] [facility] pressure Medical Center Systolic blood 145 mm[Hg] 145 mm[Hg] [facility] Body weight 68.705885 kg 68.494231 kg [facility] Measured [facility] Center Body temperature 36.410638 Kaylie 36.169007 Kaylie [facility] Respiratory rate 18 /min 18 /min [facility] Oxygen 100 % 100 % [facility] saturation in Medical Arterial blood Center by Pulse oximetry Heart rate 88 /min 88 /min [facility] Body height 170.878938 cm 170.594895 cm [facility] Diastolic blood 74 mm[Hg] 74 mm[Hg] [facility] pressure Medical Center Systolic blood 130 mm[Hg] 130 mm[Hg] [facility] Body mass index 23.4 kg/m2 23.4 kg/m2 [facility] (BMI) [Ratio] Medical Center Body temperature 37.048970 Kaylie 37.033348 Kaylie [facility] Respiratory rate 18 /min 18 /min [facility] Oxygen 93 % 93 % [facility] saturation in Medical Arterial blood Center by Pulse oximetry Heart rate 97 /min 97 /min [facility] Diastolic blood 81 mm[Hg] 81 mm[Hg] [facility] Systolic blood 129 mm[Hg] 129 mm[Hg] [facility] Body temperature 37.416196 Kaylie 37.243516 Kaylie [facility] Respiratory rate 19 /min 19 /min [facility] Oxygen 93 % 93 % [facility] saturation in Medical Arterial blood Center by Pulse oximetry Heart rate 96 /min 96 /min [facility] Diastolic blood 76 mm[Hg] 76 mm[Hg] [facility] pressure Medical Center Systolic blood 134 mm[Hg] 134 mm[Hg] [facility] Body temperature 37.728049 Kaylie 37.819373 Kaylie [facility] Respiratory rate 19 /min 19 /min [facility] Oxygen 93 % 93 % [facility] saturation in Medical Arterial blood Center by Pulse oximetry Heart rate 95 /min 95 /min [facility] Diastolic blood 66 mm[Hg] 66 mm[Hg] [facility] pressure Medical Center Systolic blood 154 mm[Hg] 154 mm[Hg] [facility] Body temperature 37.471796 Kaylie 37.948301 Kaylie [facility] Respiratory rate 18 /min 18 /min [facility] Oxygen 95 % 95 % [facility] saturation in Medical Arterial blood Center by Pulse oximetry Heart rate 86 /min 86 /min [facility] Diastolic blood 72 mm[Hg] 72 mm[Hg] [facility] Center Systolic blood 108 mm[Hg] 108 mm[Hg] [facility] Body temperature 36.269412 Kaylie 36.523089 Kaylie [facility] Respiratory rate 18 /min 18 /min [facility] Oxygen 98 % 98 % [facility] saturation in Medical Arterial blood Center by Pulse oximetry Heart rate 84 /min 84 /min [facility] Diastolic blood 80 mm[Hg] 80 mm[Hg] [facility] Systolic blood 127 mm[Hg] 127 mm[Hg] [facility] Body temperature 37.124251 Kaylie 37.121699 Kaylie [facility] Respiratory rate 16 /min 16 /min [facility] Oxygen 98 % 98 % [facility] saturation in Medical Arterial blood Center by Pulse oximetry Heart rate 84 /min 84 /min [facility] Diastolic blood 76 mm[Hg] 76 mm[Hg] [facility] Systolic blood 128 mm[Hg] 128 mm[Hg] [facility] Body temperature 37.922436 Kaylie 37.517790 Kaylie [facility] Respiratory rate 16 /min 16 /min [facility] Oxygen 98 % 98 % [facility] saturation in Medical Arterial blood Center by Pulse oximetry Heart rate 84 /min 84 /min [facility] Diastolic blood 76 mm[Hg] 76 mm[Hg] [facility] Systolic blood 128 mm[Hg] 128 mm[Hg] [facility] Body temperature 37.827307 Kaylie 37.732431 Kaylie [facility] Respiratory rate 17 /min 17 /min [facility] Oxygen 98 % 98 % [facility] saturation in Medical Arterial blood Center by Pulse oximetry Heart rate 87 /min 87 /min [facility] Diastolic blood 70 mm[Hg] 70 mm[Hg] [facility] pressure Medical Center Systolic blood 121 mm[Hg] 121 mm[Hg] [facility] Body temperature 36.981567 Kaylie 36.718232 Kaylie [facility] Respiratory rate 16 /min 16 /min [facility] Oxygen 98 % 98 % [facility] saturation in Medical Arterial blood Center by Pulse oximetry Heart rate 89 /min 89 /min [facility] Diastolic blood 75 mm[Hg] 75 mm[Hg] [facility] [place] Systolic blood 135 mm[Hg] 135 mm[Hg] [facility] [place] Body temperature 36.844177 Kaylie 36.871291 Kaylie [facility] Respiratory rate 17 /min 17 /min [facility] Oxygen 96 % 96 % [facility] saturation in Medical Arterial blood Center by Pulse oximetry Heart rate 95 /min 95 /min [facility] Diastolic blood 78 mm[Hg] 78 mm[Hg] [facility] [place] Systolic blood 141 mm[Hg] 141 mm[Hg] [facility] Body temperature 37.949305 Kaylie 37.543607 Kaylie [facility] Respiratory rate 20 /min 20 /min [facility] Heart rate 98 /min 98 /min [facility] Diastolic blood 61 mm[Hg] 61 mm[Hg] [facility] [place] Systolic blood 142 mm[Hg] 142 mm[Hg] [facility] [place] Body temperature 36.398975 Kaylie 36.831953 Kaylie [facility] Respiratory rate 20 /min 20 /min [facility] Heart rate 80 /min 80 /min [facility] Diastolic blood 72 mm[Hg] 72 mm[Hg] [facility] pressure Medical Center Systolic blood 135 mm[Hg] 135 mm[Hg] [facility] Body temperature 36.417334 Kaylie 36.371242 Kaylie [facility] Respiratory rate 20 /min 20 /min [facility] Heart rate 91 /min 91 /min [facility] Diastolic blood 77 mm[Hg] 77 mm[Hg] [facility] Systolic blood 128 mm[Hg] 128 mm[Hg] [facility] Body temperature 36.214863 Kaylie 36.688720 Kaylie [facility] Respiratory rate 20 /min 20 /min [facility] Heart rate 102 /min 102 /min [facility] Diastolic blood 72 mm[Hg] 72 mm[Hg] [facility] Systolic blood 102 mm[Hg] 102 mm[Hg] [facility] Body weight 114.751347 kg 114.308369 kg [facility] Body height 175.204864 cm 175.192893 cm [facility] Body mass index 37.11 kg/m2 37.11 kg/m2 [facility] (BMI) [Ratio] Medical Center Body temperature 36.511565 Kaylie 36.397043 Kaylie [facility] Respiratory rate 20 /min 20 /min [facility] Heart rate 91 /min 91 /min [facility] Diastolic blood 71 mm[Hg] 71 mm[Hg] [facility] Systolic blood 156 mm[Hg] 156 mm[Hg] [facility] Body temperature 36.380276 Kaylie 36.472832 Kaylie [facility] Respiratory rate 20 /min 20 /min [facility] Heart rate 97 /min 97 /min [facility] Diastolic blood 88 mm[Hg] 88 mm[Hg] [facility] Systolic blood 182 mm[Hg] 182 mm[Hg] [facility] Body weight 114.359217 kg 114.928063 kg [facility] Body height 177.960032 cm 177.235898 cm [facility] Body temperature 37.315374 Kaylie 37.013217 Kaylie [facility] Respiratory rate 18 /min 18 /min [facility] Heart rate 113 /min 113 /min [facility] Diastolic blood 102 mm[Hg] 102 mm[Hg] [facility] Systolic blood 156 mm[Hg] 156 mm[Hg] [facility] Oxygen 96 % 96 % [facility] saturation in Medical Arterial blood Center by Pulse oximetry Body temperature 37.693149 Kaylie 37.025237 Kaylie [facility] Respiratory rate 19 /min 19 /min [facility] Heart rate 107 /min 107 /min [facility] Diastolic blood 90 mm[Hg] 90 mm[Hg] [facility] pressure Medical Center Systolic blood 154 mm[Hg] 154 mm[Hg] [facility] Oxygen 96 % 96 % [facility] saturation in Medical Arterial blood Center by Pulse oximetry Body temperature 37.768806 Kaylie 37.209359 Kaylie [facility] Respiratory rate 19 /min 19 /min [facility] Heart rate 104 /min 104 /min [facility] Diastolic blood 92 mm[Hg] 92 mm[Hg] [facility] pressure Medical Center Systolic blood 148 mm[Hg] 148 mm[Hg] [facility] Oxygen 98 % 98 % [facility] saturation in Medical Arterial blood Center by Pulse oximetry Body temperature 36.492254 Kaylie 36.457811 Kaylie [facility] Respiratory rate 17 /min 17 /min [facility] Heart rate 75 /min 75 /min [facility] Diastolic blood 78 mm[Hg] 78 mm[Hg] [facility] pressure Medical Center Systolic blood 125 mm[Hg] 125 mm[Hg] [facility] Oxygen 97 % 97 % [facility] saturation in Medical Arterial blood Center by Pulse oximetry Oxygen 98 % 98 % [facility] saturation in Medical Arterial blood Center by Pulse oximetry Body temperature 36.034519 Kaylie 36.983183 Kaylie [facility] Respiratory rate 17 /min 17 /min [facility] Oxygen 97 % 97 % [facility] saturation in Medical Arterial blood Center by Pulse oximetry Heart rate 75 /min 75 /min [facility] Diastolic blood 81 mm[Hg] 81 mm[Hg] [facility] pressure Medical Center Systolic blood 139 mm[Hg] 139 mm[Hg] [facility] Body temperature 36.511466 Kaylie 36.434446 Kaylie [facility] Respiratory rate 17 /min 17 /min [facility] Oxygen 95 % 95 % [facility] saturation in Medical Arterial blood Center by Pulse oximetry Heart rate 70 /min 70 /min [facility] Diastolic blood 71 mm[Hg] 71 mm[Hg] [facility] pressure Medical Center Systolic blood 127 mm[Hg] 127 mm[Hg] [facility] Body temperature 36.625562 Kaylie 36.346384 Kaylie [facility] Respiratory rate 18 /min 18 /min [facility] Oxygen 97 % 97 % [facility] saturation in Medical Arterial blood Center by Pulse oximetry Heart rate 73 /min 73 /min [facility] Diastolic blood 66 mm[Hg] 66 mm[Hg] [facility] pressure Medical Center Systolic blood 139 mm[Hg] 139 mm[Hg] [facility] Respiratory rate 16 /min 16 /min [facility] Oxygen 963 % 963 % [facility] saturation in Medical Arterial blood Center by Pulse oximetry Heart rate 80 /min 80 /min [facility] Diastolic blood 80 mm[Hg] 80 mm[Hg] [facility] Systolic blood 154 mm[Hg] 154 mm[Hg] [facility] Body temperature 36.038424 Kaylie 36.107808 Kaylie [facility] Respiratory rate 19 /min 19 /min [facility] Oxygen 99 % 99 % [facility] saturation in Medical Arterial blood Center by Pulse oximetry Heart rate 81 /min 81 /min [facility] Diastolic blood 76 mm[Hg] 76 mm[Hg] [facility] pressure Medical Center Systolic blood 133 mm[Hg] 133 mm[Hg] [facility] Body temperature 36.034627 Kaylie 36.501314 Kaylie [facility] Respiratory rate 16 /min 16 /min [facility] Oxygen 95 % 95 % [facility] saturation in Medical Arterial blood Center by Pulse oximetry Heart rate 73 /min 73 /min [facility] Diastolic blood 74 mm[Hg] 74 mm[Hg] [facility] Systolic blood 138 mm[Hg] 138 mm[Hg] [facility] Body temperature 36.994447 Kaylie 36.923472 Kaylie [facility] Respiratory rate 18 /min 18 /min [facility] Oxygen 98 % 98 % [facility] saturation in Medical Arterial blood Center by Pulse oximetry Heart rate 76 /min 76 /min [facility] Diastolic blood 78 mm[Hg] 78 mm[Hg] [facility] pressure Medical Center Systolic blood 121 mm[Hg] 121 mm[Hg] [facility] [place] Body temperature 36.751891 Kaylie 36.383134 Kaylie [facility] Respiratory rate 17 /min 17 /min [facility] Oxygen 97 % 97 % [facility] saturation in Medical Arterial blood Center by Pulse oximetry Heart rate 84 /min 84 /min [facility] Diastolic blood 74 mm[Hg] 74 mm[Hg] [facility] pressure Medical Center Systolic blood 128 mm[Hg] 128 mm[Hg] [facility] Body temperature 36.103183 Kaylie 36.055988 Kaylie [facility] Respiratory rate 18 /min 18 /min [facility] Oxygen 97 % 97 % [facility] saturation in Medical Arterial blood Center by Pulse oximetry Heart rate 88 /min 88 /min [facility] Diastolic blood 102 mm[Hg] 102 mm[Hg] [facility] Systolic blood 164 mm[Hg] 164 mm[Hg] [facility] Body temperature 36.268726 Kaylie 36.289380 Kaylie [facility] Respiratory rate 18 /min 18 /min [facility] Oxygen 98 % 98 % [facility] saturation in Medical Arterial blood Center by Pulse oximetry Heart rate 77 /min 77 /min [facility] Diastolic blood 75 mm[Hg] 75 mm[Hg] [facility] [place] Systolic blood 136 mm[Hg] 136 mm[Hg] [facility] Body temperature 36.067992 Kaylie 36.630597 Kaylie [facility] Respiratory rate 18 /min 18 /min [facility] Oxygen 98 % 98 % [facility] saturation in Medical Arterial blood Center by Pulse oximetry Heart rate 84 /min 84 /min [facility] Diastolic blood 79 mm[Hg] 79 mm[Hg] [facility] pressure Medical Center Systolic blood 142 mm[Hg] 142 mm[Hg] [facility] [place] Body temperature 36.861295 Kaylie 36.990432 Kaylie [facility] Respiratory rate 19 /min 19 /min [facility] Oxygen 99 % 99 % [facility] saturation in Medical Arterial blood Center by Pulse oximetry Heart rate 89 /min 89 /min [facility] Diastolic blood 87 mm[Hg] 87 mm[Hg] [facility] Systolic blood 155 mm[Hg] 155 mm[Hg] [facility] Body temperature 36.178177 Kaylie 36.052808 Kaylie [facility] Respiratory rate 18 /min 18 /min [facility] Oxygen 99 % 99 % [facility] saturation in Medical Arterial blood Center by Pulse oximetry Heart rate 100 /min 100 /min [facility] Diastolic blood 98 mm[Hg] 98 mm[Hg] [facility] pressure Medical Center Systolic blood 145 mm[Hg] 145 mm[Hg] [facility] Body temperature 37.414667 Kaylie 37.287167 Kaylie [facility] Respiratory rate 20 /min 20 /min [facility] Oxygen 95 % 95 % [facility] saturation in Medical Arterial blood Center by Pulse oximetry Heart rate 88 /min 88 /min [facility] Diastolic blood 77 mm[Hg] 77 mm[Hg] [facility] Systolic blood 135 mm[Hg] 135 mm[Hg] [facility] Body weight 79.038693 kg 79.068726 kg [facility] Body temperature 36.443443 Kaylie 36.923174 Kaylie [facility] Respiratory rate 18 /min 18 /min [facility] Oxygen 99 % 99 % [facility] saturation in Medical Arterial blood Center by Pulse oximetry Heart rate 78 /min 78 /min [facility] Body height 172.379595 cm 172.673584 cm [facility] Diastolic blood 70 mm[Hg] 70 mm[Hg] [facility] pressure Medical Center Systolic blood 130 mm[Hg] 130 mm[Hg] [facility] Body mass index 26.6 kg/m2 26.6 kg/m2 [facility] (BMI) [Ratio] Medical Center Body temperature 37.423778 Kaylie 37.476697 Kaylie [facility] Respiratory rate 18 /min 18 /min [facility] Oxygen 98 % 98 % [facility] saturation in Medical Arterial blood Center by Pulse oximetry Heart rate 103 /min 103 /min [facility] Diastolic blood 88 mm[Hg] 88 mm[Hg] [facility] Systolic blood 142 mm[Hg] 142 mm[Hg] [facility] Body temperature 36.765139 Kaylie 36.494184 Kaylie [facility] Respiratory rate 18 /min 18 /min [facility] Oxygen 97 % 97 % [facility] saturation in Medical Arterial blood Center by Pulse oximetry Heart rate 77 /min 77 /min [facility] Diastolic blood 66 mm[Hg] 66 mm[Hg] [facility] pressure Medical Center Systolic blood 140 mm[Hg] 140 mm[Hg] [facility] Body temperature 36.994915 Kaylie 36.166360 Kaylie [facility] Respiratory rate 18 /min 18 /min [facility] Oxygen 96 % 96 % [facility] saturation in Medical Arterial blood Center by Pulse oximetry Heart rate 88 /min 88 /min [facility] Diastolic blood 75 mm[Hg] 75 mm[Hg] [facility] Systolic blood 119 mm[Hg] 119 mm[Hg] [facility] Body temperature 36.003830 Kaylie 36.632347 Kaylie [facility] Respiratory rate 19 /min 19 /min [facility] Oxygen 97 % 97 % [facility] saturation in Medical Arterial blood Center by Pulse oximetry Heart rate 101 /min 101 /min [facility] Diastolic blood 67 mm[Hg] 67 mm[Hg] [facility] Systolic blood 108 mm[Hg] 108 mm[Hg] [facility] Body temperature 36.263397 Kaylie 36.916371 Kaylie [facility] Respiratory rate 17 /min 17 /min [facility] Oxygen 94 % 94 % [facility] saturation in Medical Arterial blood Center by Pulse oximetry Heart rate 87 /min 87 /min [facility] Diastolic blood 81 mm[Hg] 81 mm[Hg] [facility] Systolic blood 120 mm[Hg] 120 mm[Hg] [facility] Body temperature 36.779330 Kaylie 36.430607 Kaylie [facility] Respiratory rate 17 /min 17 /min [facility] Oxygen 97 % 97 % [facility] saturation in Medical Arterial blood Center by Pulse oximetry Heart rate 70 /min 70 /min [facility] Diastolic blood 66 mm[Hg] 66 mm[Hg] [facility] Systolic blood 139 mm[Hg] 139 mm[Hg] [facility] pressure Medical Center Body temperature 36.326702 Kaylie 36.503334 Kaylie [facility] Respiratory rate 17 /min 17 /min [facility] Oxygen 95 % 95 % [facility] saturation in Medical Arterial blood Center by Pulse oximetry Heart rate 69 /min 69 /min [facility] Diastolic blood 76 mm[Hg] 76 mm[Hg] [facility] pressure Medical Center Systolic blood 122 mm[Hg] 122 mm[Hg] [facility] pressure Medical Center Body temperature 36.062010 Kaylie 36.075804 Kaylie [facility] Respiratory rate 17 /min 17 /min [facility] Oxygen 98 % 98 % [facility] saturation in Medical Arterial blood Center by Pulse oximetry Heart rate 73 /min 73 /min [facility] Diastolic blood 69 mm[Hg] 69 mm[Hg] [facility] pressure Medical Center Systolic blood 133 mm[Hg] 133 mm[Hg] [facility] pressure Medical Center Diastolic blood 84 mmHg 84 mmHg [facility] Systolic blood 150 mmHg 150 mmHg [facility] Respiratory rate 18 bpm 18 bpm [facility] Heart rate 86 bpm 86 bpm [facility] Body [facility] 97.8 [facility] 79 mmHg 79 mmHg [facility] Systolic blood 135 mmHg 135 mmHg [facility] Respiratory rate 18 bpm 18 bpm [facility] Heart rate 92 bpm 92 bpm [facility] Body temperature 97.5 Fahrenheit 97.5 Fahrenh t [facility] Diastolic blood 77 mmHg 77 mmHg [facility] Systolic blood 124 mmHg 124 mmHg [facility] Respiratory rate 18 bpm 18 bpm [facility] Heart rate 90 bpm 90 bpm [facility] Body temperature 98.0 Fahrenheit 98.0 F[facility] t [facility] Diastolic blood 89 mmHg 89 mmHg [facility] Systolic blood 149 mmHg 149 mmHg [facility] Respiratory rate 18 bpm 18 bpm [facility] Heart rate 105 bpm 105 bpm [facility] Body temperature 98.2 Fahrenheit 98.2 [facility] t [facility] Body temperature 97.3 Fahrenheit 97.3 Fahren[facility] t [facility] Body weight 233 lbs 233 lbs [facility] Diastolic blood 87 mmHg 87 mmHg [facility] Systolic blood 140 mmHg 140 mmHg [facility] Respiratory rate 18 bpm 18 bpm [facility] Heart rate 103 bpm 103 bpm [facility] Body temperature 98.1 [facility] Body temperature 97.4 Fahrenheit 97.4 F[facility] t [facility] Body temperature 36.858204 Kaylie 36.279020 Kaylie [facility] Respiratory rate 17 /min 17 /min [facility] Oxygen 95 % 95 % [facility] saturation in Medical Arterial blood Center by Pulse oximetry Heart rate 79 /min 79 /min [facility] Diastolic blood 71 mm[Hg] 71 mm[Hg] [facility] [place] Systolic blood 122 mm[Hg] 122 mm[Hg] [facility] Body temperature 36.116961 Kaylie 36.036973 Kaylie [facility] Respiratory rate 17 /min 17 /min [facility] Oxygen 98 % 98 % [facility] saturation in Medical Arterial blood Center by Pulse oximetry Heart rate 79 /min 79 /min [facility] Diastolic blood 69 mm[Hg] 69 mm[Hg] [facility] Systolic blood 133 mm[Hg] 133 mm[Hg] [facility] Body temperature 37.078963 Kaylie 37.767442 Kaylie [facility] Respiratory rate 16 /min 16 /min [facility] Oxygen 97 % 97 % [facility] saturation in Medical Arterial blood Center by Pulse oximetry Heart rate 96 /min 96 /min [facility] Diastolic blood 91 mm[Hg] 91 mm[Hg] [facility] [place] Systolic blood 154 mm[Hg] 154 mm[Hg] [facility] Body temperature 37.605078 Kaylie 37.664053 Kaylie [facility] Respiratory rate 18 /min 18 /min [facility] Heart rate 102 /min 102 /min [facility] Diastolic blood 107 mm[Hg] 107 mm[Hg] [facility] Systolic blood 162 mm[Hg] 162 mm[Hg] [facility] [place] Body temperature 36.981653 Kaylie 36.773141 Kaylie [facility] Respiratory rate 18 /min 18 /min [facility] Oxygen 97 % 97 % [facility] saturation in Medical Arterial blood Center by Pulse oximetry Heart rate 101 /min 101 /min [facility] Diastolic blood 95 mm[Hg] 95 mm[Hg] [facility] pressure Medical Center Systolic blood 159 mm[Hg] 159 mm[Hg] [facility] Body temperature 36.543673 Kaylie 36.171228 Kaylie [facility] Respiratory rate 18 /min 18 /min [facility] Oxygen 96 % 96 % [facility] saturation in Medical Arterial blood Center by Pulse oximetry Heart rate 93 /min 93 /min [facility] Diastolic blood 61 mm[Hg] 61 mm[Hg] [facility] pressure Medical Center Systolic blood 111 mm[Hg] 111 mm[Hg] [facility] [place] Body temperature 36.105149 Kaylie 36.686859 Kaylie [facility] Respiratory rate 16 /min 16 /min [facility] Oxygen 98 % 98 % [facility] saturation in Medical Arterial blood Center by Pulse oximetry Heart rate 78 /min 78 /min [facility] Diastolic blood 73 mm[Hg] 73 mm[Hg] [facility] pressure Medical Center Systolic blood 124 mm[Hg] 124 mm[Hg] [facility] [place] Body temperature 36.755760 Kaylie 36.520645 Kaylie [facility] Respiratory rate 16 /min 16 /min [facility] Oxygen 96 % 96 % [facility] saturation in Medical Arterial blood Center by Pulse oximetry Heart rate 94 /min 94 /min [facility] Diastolic blood 71 mm[Hg] 71 mm[Hg] [facility] pressure Medical Center Systolic blood 131 mm[Hg] 131 mm[Hg] [facility] Body temperature 36.852093 Kaylie 36.150636 Kaylie [facility] Respiratory rate 15 /min 15 /min [facility] Oxygen 98 % 98 % [facility] saturation in Medical Arterial blood Center by Pulse oximetry Heart rate 100 /min 100 /min [facility] Diastolic blood 73 mm[Hg] 73 mm[Hg] [facility] pressure Medical Center Systolic blood 129 mm[Hg] 129 mm[Hg] [facility] Body weight 77.061518 kg 77.560564 kg [facility] Body temperature 36.733336 Kaylie 36.251154 Kaylie [facility] Respiratory rate 18 /min 18 /min [facility] Oxygen 96 % 96 % [facility] saturation in Medical Arterial blood Center by Pulse oximetry Heart rate 99 /min 99 /min [facility] Body height 167.920790 cm 167.905406 cm [facility] Diastolic blood 74 mm[Hg] 74 mm[Hg] [facility] Systolic blood 128 mm[Hg] 128 mm[Hg] [facility] Body mass index 27.4 kg/m2 27.4 kg/m2 [facility] (BMI) [Ratio] Medical Center Body temperature 36.820541 Kaylie 36.153567 Kaylie [facility] Respiratory rate 17 /min 17 /min [facility] Oxygen 99 % 99 % [facility] saturation in Medical Arterial blood Center by Pulse oximetry Heart rate 81 /min 81 /min [facility] Diastolic blood 69 mm[Hg] 69 mm[Hg] [facility] Systolic blood 118 mm[Hg] 118 mm[Hg] [facility] Body weight 113.420816 kg 113.719712 kg [facility] Body temperature 37.102997 Kaylie 37.161838 Kaylie [facility] Respiratory rate 19 /min 19 /min [facility] Oxygen 94 % 94 % [facility] saturation in Medical Arterial blood Center by Pulse oximetry Heart rate 102 /min 102 /min [facility] Body height 172.611544 cm 172.367598 cm [facility] Diastolic blood 78 mm[Hg] 78 mm[Hg] [facility] Systolic blood 138 mm[Hg] 138 mm[Hg] [facility] Body mass index 38.0 kg/m2 38.0 kg/m2 [facility] (BMI) [Ratio] Medical Center Body temperature 36.840374 Kaylie 36.701115 Kaylie [facility] Respiratory rate 18 /min 18 /min [facility] Oxygen 98 % 98 % [facility] saturation in Medical Arterial blood Center by Pulse oximetry Heart rate 104 /min 104 /min [facility] Diastolic blood 50 mm[Hg] 50 mm[Hg] [facility] pressure Medical Center Systolic blood 91 mm[Hg] 91 mm[Hg] [facility] Body temperature 36.376607 Kaylie 36.815028 Kaylie [facility] Respiratory rate 18 /min 18 /min [facility] Oxygen 91 % 91 % [facility] saturation in Medical Arterial blood Center by Pulse oximetry Heart rate 97 /min 97 /min [facility] Diastolic blood 75 mm[Hg] 75 mm[Hg] [facility] pressure Medical Center Systolic blood 126 mm[Hg] 126 mm[Hg] [facility] Body temperature 36.469606 Kaylie 36.891844 Kaylie [facility] Respiratory rate 18 /min 18 /min [facility] Oxygen 100 % 100 % [facility] saturation in Medical Arterial blood Center by Pulse oximetry Heart rate 95 /min 95 /min [facility] Diastolic blood 57 mm[Hg] 57 mm[Hg] [facility] Systolic blood 106 mm[Hg] 106 mm[Hg] [facility] Body weight 83.518929 kg 83.539323 kg [facility] [place] Body temperature 36.668979 Kaylie 36.847775 Kaylie [facility] Respiratory rate 19 /min 19 /min [facility] Oxygen 97 % 97 % [facility] saturation in Medical Arterial blood Center by Pulse oximetry Heart rate 95 /min 95 /min [facility] Body height 175.701934 cm 175.650278 cm [facility] Diastolic blood 58 mm[Hg] 58 mm[Hg] [facility] Systolic blood 107 mm[Hg] 107 mm[Hg] [facility] Body mass index 27.3 kg/m2 27.3 kg/m2 [facility] (BMI) [Ratio] Medical Center Body temperature 36.325139 Kaylie 36.076558 Kaylie [facility] Respiratory rate 16 /min 16 /min [facility] Oxygen 98 % 98 % [facility] saturation in Medical Arterial blood Center by Pulse oximetry Heart rate 84 /min 84 /min [facility] Diastolic blood 74 mm[Hg] 74 mm[Hg] [facility] Systolic blood 141 mm[Hg] 141 mm[Hg] [facility] Body temperature 37.764152 Kaylie 37.834772 Kaylie [facility] Respiratory rate 18 /min 18 /min [facility] Oxygen 96 % 96 % [facility] saturation in Medical Arterial blood Center by Pulse oximetry Heart rate 90 /min 90 /min [facility] Diastolic blood 60 mm[Hg] 60 mm[Hg] [facility] Systolic blood 103 mm[Hg] 103 mm[Hg] [facility] [place] Body temperature 37.781498 Kaylie 37.284123 Kaylie [facility] Respiratory rate 17 /min 17 /min [facility] Oxygen 99 % 99 % [facility] saturation in Medical Arterial blood Center by Pulse oximetry Heart rate 88 /min 88 /min [facility] Diastolic blood 86 mm[Hg] 86 mm[Hg] [facility] [place] Systolic blood 138 mm[Hg] 138 mm[Hg] [facility] Body temperature 36.243518 Kaylie 36.147937 Kaylie [facility] Respiratory rate 16 /min 16 /min [facility] Oxygen 98 % 98 % [facility] saturation in Medical Arterial blood Center by Pulse oximetry Heart rate 78 /min 78 /min [facility] Diastolic blood 91 mm[Hg] 91 mm[Hg] [facility] Systolic blood 145 mm[Hg] 145 mm[Hg] [facility] Body temperature 36.490619 Kaylie 36.557624 Kaylie [facility] Respiratory rate 16 /min 16 /min [facility] Oxygen 98 % 98 % [facility] saturation in Medical Arterial blood Center by Pulse oximetry Heart rate 75 /min 75 /min [facility] Diastolic blood 84 mm[Hg] 84 mm[Hg] [facility] Systolic blood 151 mm[Hg] 151 mm[Hg] [facility] Body temperature 36.085198 Kaylie 36.807179 Kaylie [facility] Respiratory rate 16 /min 16 /min [facility] Oxygen 98 % 98 % [facility] saturation in Medical Arterial blood Center by Pulse oximetry Heart rate 74 /min 74 /min [facility] Diastolic blood 87 mm[Hg] 87 mm[Hg] [facility] pressure Medical Center Systolic blood 148 mm[Hg] 148 mm[Hg] [facility] Body temperature 36.385292 Kaylie 36.877999 Kaylie [facility] Respiratory rate 16 /min 16 /min [facility] Oxygen 96 % 96 % [facility] saturation in Medical Arterial blood Center by Pulse oximetry Heart rate 79 /min 79 /min [facility] Diastolic blood 88 mm[Hg] 88 mm[Hg] [facility] [place] Systolic blood 151 mm[Hg] 151 mm[Hg] [facility] [place] Body temperature 37.531524 Kaylie 37.846183 Kaylie [facility] Respiratory rate 16 /min 16 /min [facility] Oxygen 98 % 98 % [facility] saturation in Medical Arterial blood Center by Pulse oximetry Heart rate 86 /min 86 /min [facility] Diastolic blood 94 mm[Hg] 94 mm[Hg] [facility] [place] Systolic blood 145 mm[Hg] 145 mm[Hg] [facility] Body temperature 36.402186 Kaylie 36.887346 Kaylie [facility] Respiratory rate 19 /min 19 /min [facility] Oxygen 97 % 97 % [facility] saturation in Medical Arterial blood Center by Pulse oximetry Heart rate 92 /min 92 /min [facility] Diastolic blood 88 mm[Hg] 88 mm[Hg] [facility] [place] Systolic blood 148 mm[Hg] 148 mm[Hg] [facility] Body temperature 36.043105 Kaylie 36.321876 Kaylie [facility] Respiratory rate 17 /min 17 /min [facility] Oxygen 97 % 97 % [facility] saturation in Medical Arterial blood Center by Pulse oximetry Heart rate 71 /min 71 /min [facility] Diastolic blood 87 mm[Hg] 87 mm[Hg] [facility] Systolic blood 139 mm[Hg] 139 mm[Hg] [facility] Body temperature 36.915927 Kaylie 36.933116 Kaylie [facility] Respiratory rate 18 /min 18 /min [facility] Oxygen 97 % 97 % [facility] saturation in Medical Arterial blood Center by Pulse oximetry Heart rate 84 /min 84 /min [facility] Diastolic blood 77 mm[Hg] 77 mm[Hg] [facility] pressure [facility] Center Systolic blood 132 mm[Hg] 132 mm[Hg] [facility] pressure Medical Center Diastolic blood 68 mm[Hg] 68 mm[Hg] [facility] pressure Medical Center Systolic blood 119 mm[Hg] 119 mm[Hg] [facility] Body temperature 36.728924 Kaylie 36.021125 Kaylie [facility] Respiratory rate 17 /min 17 /min [facility] Oxygen 98 % 98 % [facility] saturation in Medical Arterial blood Center by Pulse oximetry Heart rate 88 /min 88 /min [facility] Body temperature 36.504337 Kaylie 36.759520 Kaylie [facility] Respiratory rate 17 /min 17 /min [facility] Oxygen 97 % 97 % [facility] saturation in Medical Arterial blood Center by Pulse oximetry Heart rate 81 /min 81 /min [facility] Diastolic blood 72 mm[Hg] 72 mm[Hg] [facility] Systolic blood 131 mm[Hg] 131 mm[Hg] [facility] Body weight 90.844587 kg 90.362210 kg [facility] [place] Body temperature 36.422450 Kaylie 36.366622 Kaylie [facility] Respiratory rate 16 /min 16 /min [facility] Oxygen 9 % 9 % [facility] saturation in Medical Arterial blood Center by Pulse oximetry Heart rate 80 /min 80 /min [facility] Body height 177.288691 cm 177.535690 cm [facility] Diastolic blood 95 mm[Hg] 95 mm[Hg] [facility] Systolic blood 152 mm[Hg] 152 mm[Hg] [facility] Body mass index 28.6 kg/m2 28.6 kg/m2 [facility] (BMI) [Ratio] Medical Center Body temperature 36.921985 Kaylie 36.608190 Kaylie [facility] Respiratory rate 18 /min 18 /min [facility] Oxygen 100 % 100 % [facility] saturation in Medical Arterial blood Center by Pulse oximetry Heart rate 81 /min 81 /min [facility] Diastolic blood 70 mm[Hg] 70 mm[Hg] [facility] Systolic blood 119 mm[Hg] 119 mm[Hg] [facility] Body temperature 36.216050 Kaylie 36.430062 Kaylie [facility] Respiratory rate 18 /min 18 /min [facility] Oxygen 97 % 97 % [facility] saturation in Medical Arterial blood Center by Pulse oximetry Heart rate 86 /min 86 /min [facility] Diastolic blood 76 mm[Hg] 76 mm[Hg] [facility] Systolic blood 119 mm[Hg] 119 mm[Hg] [facility] Body temperature 36.035304 Kaylie 36.559234 Kaylie [facility] Respiratory rate 18 /min 18 /min [facility] Oxygen 97 % 97 % [place] saturation in Medical Arterial blood Center by Pulse oximetry Heart rate 94 /min 94 /min [facility] Diastolic blood 87 mm[Hg] 87 mm[Hg] [facility] [place] Systolic blood 140 mm[Hg] 140 mm[Hg] [facility] Body temperature 36.825269 Kaylie 36.875308 Kaylie [facility] Respiratory rate 19 /min 19 /min [facility] Oxygen 100 % 100 % [facility] saturation in Medical Arterial blood Center by Pulse oximetry Heart rate 83 /min 83 /min [facility] Diastolic blood 71 mm[Hg] 71 mm[Hg] [facility] [place] Systolic blood 126 mm[Hg] 126 mm[Hg] [facility] Body temperature 36.116213 Kaylie 36.939923 Kaylie [facility] Respiratory rate 18 /min 18 /min [facility] Oxygen 99 % 99 % [facility] saturation in Medical Arterial blood Center by Pulse oximetry Heart rate 79 /min 79 /min [facility] Diastolic blood 77 mm[Hg] 77 mm[Hg] [facility] [facility] [place] Systolic blood 126 mm[Hg] 126 mm[Hg] [facility] Body weight 125.233425 kg 125.552829 kg [facility] Body temperature 36.813453 Kaylie 36.026101 Kaylie [facility] Respiratory rate 18 /min 18 /min [facility] Oxygen 98 % 98 % [facility] saturation in Medical Arterial blood Center by Pulse oximetry Heart rate 98 /min 98 /min [facility] Body height 177.496369 cm 177.447414 cm [facility] Diastolic blood 78 mm[Hg] 78 mm[Hg] [facility] pressure [facility] Center Systolic blood 110 mm[Hg] 110 mm[Hg] [facility] Body mass index 39.5 kg/m2 39.5 kg/m2 [facility] (BMI) [Ratio] [facility] Center Body temperature 36.181566 Kaylie 36.659128 Kaylie [facility] Respiratory rate 17 /min 17 /min [facility] Oxygen 96 % 96 % [facility] [place] saturation in Medical Arterial blood Center by Pulse oximetry Heart rate 88 /min 88 /min [facility] Diastolic blood 75 mm[Hg] 75 mm[Hg] [facility] pressure [facility] Center Systolic blood 104 mm[Hg] 104 mm[Hg] [facility] Body weight 110.703126 kg 110.410293 kg [facility] Body temperature 36.868790 Kaylie 36.778495 Kaylie [facility] Respiratory rate 18 /min 18 /min [facility] Oxygen 98 % 98 % [facility] [place] saturation in Medical Arterial blood Center by Pulse oximetry Heart rate 78 /min 78 /min [facility] Body height 187.168638 cm 187.079680 cm [facility] Diastolic blood 78 mm[Hg] 78 mm[Hg] [facility] pressure [facility] Center Systolic blood 148 mm[Hg] 148 mm[Hg] [facility] Body mass index 31.1 kg/m2 31.1 kg/m2 [facility] (BMI) [Ratio] [facility] Body temperature 36.296879 Kaylie 36.635830 Kaylie [facility] Respiratory rate 17 /min 17 /min [facility] Oxygen 98 % 98 % [facility] [place] saturation in Medical Arterial blood Center by Pulse oximetry Heart rate 75 /min 75 /min [facility] Diastolic blood 68 mm[Hg] 68 mm[Hg] [facility] pressure [facility] Systolic blood 129 mm[Hg] 129 mm[Hg] [facility] Oxygen 98 % 98 % [facility] [place] saturation in Medical Arterial blood Center by Pulse oximetry Heart rate 75 /min 75 /min [facility] Diastolic blood 68 mm[Hg] 68 mm[Hg] [facility] Systolic blood 133 mm[Hg] 133 mm[Hg] [facility] Body temperature 36.304680 Kaylie 36.771810 Kaylie [facility] Respiratory rate 17 /min 17 /min [facility] Body temperature 36.876353 Kaylie 36.852842 Kaylie [facility] Respiratory rate 17 /min 17 /min [facility] Oxygen 98 % 98 % [facility] [place] saturation in Medical Arterial blood Center by Pulse oximetry Heart rate 82 /min 82 /min [facility] Diastolic blood 87 mm[Hg] 87 mm[Hg] [facility] [place] Systolic blood 142 mm[Hg] 142 mm[Hg] [facility] Body temperature 36.455569 Kaylie 36.014182 Kaylie [facility] Oxygen 97 % 97 % [facility] [place] saturation in Medical Arterial blood Center by Pulse oximetry Heart rate 87 /min 87 /min [facility] Diastolic blood 81 mm[Hg] 81 mm[Hg] [facility] Systolic blood 150 mm[Hg] 150 mm[Hg] [facility] Body temperature 37.502976 Kaylie 37.264214 Kaylie [facility] Respiratory rate 19 /min 19 /min [facility] Oxygen 96 % 96 % [facility] [place] saturation in Medical Arterial blood Center by Pulse oximetry Heart rate 89 /min 89 /min [facility] Diastolic blood 91 mm[Hg] 91 mm[Hg] [facility] Systolic blood 158 mm[Hg] 158 mm[Hg] [facility] [place] Body weight 104.562603 kg 104.658187 kg [facility] [place] Body temperature 37.391855 Kaylie 37.889033 Kaylie [facility] Respiratory rate 17 /min 17 /min [facility] Oxygen 96 % 96 % [facility] [place] saturation in Medical Arterial blood Center by Pulse oximetry Heart rate 92 /min 92 /min [facility] Body height 177.114720 cm 177.290849 cm [facility] Diastolic blood 101 mm[Hg] 101 mm[Hg] [facility] pressure [facility] Center Systolic blood 152 mm[Hg] 152 mm[Hg] [facility] Body mass index 33.0 kg/m2 33.0 kg/m2 [facility] (BMI) [Ratio] [facility] Center Body weight 110.440739 kg 110.524492 kg [facility] Body temperature 36.227990 Kaylie 36.874471 Kaylie [facility] Respiratory rate 18 /min 18 /min [facility] Oxygen 98 % 98 % [place] saturation in Medical Arterial blood Center by Pulse oximetry Heart rate 78 /min 78 /min [facility] Body height 185.453645 cm 185.058374 cm [facility] Diastolic blood 78 mm[Hg] 78 mm[Hg] [facility] pressure [facility] Center Systolic blood 142 mm[Hg] 142 mm[Hg] [facility] Body mass index 31.9 kg/m2 31.9 kg/m2 [facility] (BMI) [Ratio] [facility] Body temperature 36.590399 Kaylie 36.895595 Kaylie [facility] Respiratory rate 18 /min 18 /min [facility] Oxygen 95 % 95 % [facility] [place] saturation in Medical Arterial blood Center by Pulse oximetry Heart rate 91 /min 91 /min [facility] Diastolic blood 74 mm[Hg] 74 mm[Hg] [facility] Systolic blood 144 mm[Hg] 144 mm[Hg] [facility] Body temperature 37.546422 Kaylei 37.819705 Kaylie [facility] Respiratory rate 20 /min 20 /min [facility] Oxygen 96 % 96 % [facility] [place] saturation in Medical Arterial blood Center by Pulse oximetry Heart rate 89 /min 89 /min [facility] Diastolic blood 79 mm[Hg] 79 mm[Hg] [facility] pressure [facility] Center Systolic blood 140 mm[Hg] 140 mm[Hg] [facility] Body weight 90.693602 kg 90.438907 kg [facility] Measured [facility] Body temperature 36.225939 Kaylie 36.163625 Kaylie [facility] Respiratory rate 18 /min 18 /min [facility] Oxygen 99 % 99 % [facility] [place] saturation in Medical Arterial blood Center by Pulse oximetry Heart rate 97 /min 97 /min [facility] Body height 177.949502 cm 177.411286 cm [facility] Diastolic blood 86 mm[Hg] 86 mm[Hg] [facility] pressure [facility] Systolic blood 157 mm[Hg] 157 mm[Hg] [facility] Body mass index 28.6 kg/m2 28.6 kg/m2 [facility] (BMI) [Ratio] [facility] Body temperature 36.811201 Kaylie 36.462436 Kaylie [facility] Respiratory rate 19 /min 19 /min [facility] Oxygen 97 % 97 % [place] saturation in Medical Arterial blood Center by Pulse oximetry Heart rate 78 /min 78 /min [facility] Diastolic blood 78 mm[Hg] 78 mm[Hg] [facility] Systolic blood 132 mm[Hg] 132 mm[Hg] [facility] Body temperature 37.843421 Kaylie 37.757079 Kaylie [facility] Respiratory rate 18 /min 18 /min [facility] Oxygen 96 % 96 % [place] saturation in Medical Arterial blood Center by Pulse oximetry Heart rate 92 /min 92 /min [facility] Diastolic blood 64 mm[Hg] 64 mm[Hg] [facility] Systolic blood 117 mm[Hg] 117 mm[Hg] [facility] Body temperature 37.120883 Kaylie 37.139424 Kaylie [facility] Respiratory rate 19 /min 19 /min [facility] Oxygen 98 % 98 % [place] saturation in Medical Arterial blood Center by Pulse oximetry Heart rate 96 /min 96 /min [facility] Diastolic blood 98 mm[Hg] 98 mm[Hg] [facility] Systolic blood 148 mm[Hg] 148 mm[Hg] [facility] Body temperature 36.689050 Kaylie 36.435903 Kaylie [facility] Respiratory rate 18 /min 18 /min [facility] Oxygen 98 % 98 % [place] saturation in Medical Arterial blood Center by Pulse oximetry Heart rate 88 /min 88 /min [facility] Diastolic blood 78 mm[Hg] 78 mm[Hg] [facility] Systolic blood 134 mm[Hg] 134 mm[Hg] [facility] Body temperature 36.554926 Kaylie 36.138508 Kaylie [facility] Respiratory rate 18 /min 18 /min [facility] Oxygen 90 % 90 % [facility] [place] saturation in Medical Arterial blood Center by Pulse oximetry Heart rate 76 /min 76 /min [facility] Diastolic blood 76 mm[Hg] 76 mm[Hg] [facility] pressure [facility] Systolic blood 134 mm[Hg] 134 mm[Hg] [facility] Oxygen 95 % 95 % [place] saturation in Medical Arterial blood Center by Pulse oximetry Heart rate 74 /min 74 /min [facility] Diastolic blood 81 mm[Hg] 81 mm[Hg] [facility] Systolic blood 127 mm[Hg] 127 mm[Hg] [facility] Body temperature 36.823598 Kaylie 36.021088 Kaylie [facility] Respiratory rate 16 /min 16 /min [facility] Body temperature 36.365122 Kaylie 36.348902 Kaylie [facility] Oxygen 95 % 95 % [place] saturation in Medical Arterial blood Center by Pulse oximetry Heart rate 79 /min 79 /min [facility] Diastolic blood 74 mm[Hg] 74 mm[Hg] [facility] Systolic blood 131 mm[Hg] 131 mm[Hg] [facility] Body temperature 37.025025 Kaylie 37.190260 Kaylie [facility] Respiratory rate 16 /min 16 /min [facility] Oxygen 98 % 98 % [place] saturation in Medical Arterial blood Center by Pulse oximetry Heart rate 84 /min 84 /min [facility] Diastolic blood 74 mm[Hg] 74 mm[Hg] [facility] Systolic blood 131 mm[Hg] 131 mm[Hg] [facility] [place] Body temperature 37.185396 Kaylie 37.841431 Kaylie [facility] Respiratory rate 17 /min 17 /min [facility] Oxygen 99 % 99 % [place] saturation in Medical Arterial blood Center by Pulse oximetry Heart rate 81 /min 81 /min [facility] Diastolic blood 78 mm[Hg] 78 mm[Hg] [facility] Systolic blood 127 mm[Hg] 127 mm[Hg] [facility] Body weight 104.726075 kg 104.237227 kg [facility] Body temperature 36.416126 Kaylie 36.232087 Kaylie [facility] Respiratory rate 17 /min 17 /min [facility] Oxygen 98 % 98 % [place] saturation in Medical Arterial blood Center by Pulse oximetry Heart rate 101 /min 101 /min [facility] Body height 177.511848 cm 177.304119 cm [facility] [place] Diastolic blood 94 mm[Hg] 94 mm[Hg] [facility] pressure [facility] Systolic blood 163 mm[Hg] 163 mm[Hg] [facility] Body mass index 33.0 kg/m2 33.0 kg/m2 [facility] (BMI) [Ratio] [facility] Body temperature 36.615019 Kaylie 36.100305 Kaylie [facility] Respiratory rate 17 /min 17 /min [facility] Oxygen 98 % 98 % [place] saturation in Medical Arterial blood Center by Pulse oximetry Heart rate 72 /min 72 /min [facility] Diastolic blood 96 mm[Hg] 96 mm[Hg] [facility] Systolic blood 139 mm[Hg] 139 mm[Hg] [facility] Body temperature 36.565772 Kaylie 36.368730 Kaylie [facility] Respiratory rate 18 /min 18 /min [facility] Oxygen 97 % 97 % [place] saturation in Medical Arterial blood Center by Pulse oximetry Heart rate 66 /min 66 /min [facility] Diastolic blood 52 mm[Hg] 52 mm[Hg] [facility] Systolic blood 100 mm[Hg] 100 mm[Hg] [facility] Body weight 77.959564 kg 77.359138 kg [facility] Body temperature 36.080889 Kaylie 36.382483 Kaylie [facility] Respiratory rate 18 /min 18 /min [facility] Oxygen 97 % 97 % [place] saturation in Medical Arterial blood Center by Pulse oximetry Heart rate 82 /min 82 /min [facility] Body height 167.765252 cm 167.294099 cm [facility] Diastolic blood 80 mm[Hg] 80 mm[Hg] [facility] pressure [facility] Systolic blood 130 mm[Hg] 130 mm[Hg] [facility] Body mass index 27.4 kg/m2 27.4 kg/m2 [facility] (BMI) [Ratio] [facility] Body temperature 36.149091 Kaylie 36.559130 Kaylie [facility] Respiratory rate 17 /min 17 /min [facility] Oxygen 99 % 99 % [place] saturation in Medical Arterial blood Center by Pulse oximetry Heart rate 88 /min 88 /min [facility] Diastolic blood 77 mm[Hg] 77 mm[Hg] [facility] Systolic blood 128 mm[Hg] 128 mm[Hg] [facility] Body temperature 37.303343 Kaylie 37.394831 Kaylie [facility] Respiratory rate 18 /min 18 /min [facility] Oxygen 96 % 96 % [place] saturation in Medical Arterial blood Center by Pulse oximetry Heart rate 94 /min 94 /min [facility] Diastolic blood 80 mm[Hg] 80 mm[Hg] [facility] Systolic blood 122 mm[Hg] 122 mm[Hg] [facility] Body temperature 36.212049 Kaylie 36.437018 Kaylie [facility] Respiratory rate 20 /min 20 /min [facility] Oxygen 94 % 94 % [place] saturation in Medical Arterial blood Center by Pulse oximetry Heart rate 93 /min 93 /min [facility] Diastolic blood 61 mm[Hg] 61 mm[Hg] [facility] Systolic blood 122 mm[Hg] 122 mm[Hg] [facility] Body temperature 36.700423 Kaylie 36.632443 Kaylie [facility] Respiratory rate 17 /min 17 /min [facility] Oxygen 97 % 97 % [place] saturation in Medical Arterial blood Center by Pulse oximetry Heart rate 81 /min 81 /min [facility] Diastolic blood 82 mm[Hg] 82 mm[Hg] [facility] Systolic blood 142 mm[Hg] 142 mm[Hg] [facility] Body temperature 36.913478 Kaylie 36.085525 Kaylie [facility] Respiratory rate 18 /min 18 /min [facility] Oxygen 98 % 98 % [place] saturation in Medical Arterial blood Center by Pulse oximetry Heart rate 86 /min 86 /min [facility] Diastolic blood 78 mm[Hg] 78 mm[Hg] [facility] pressure [facility] Systolic blood 122 mm[Hg] 122 mm[Hg] [facility] Body temperature 36.843971 Kaylie 36.286426 Kaylie [facility] Respiratory rate 17 /min 17 /min [facility] Oxygen 96 % 96 % [place] saturation in Medical Arterial blood Center by Pulse oximetry Heart rate 83 /min 83 /min [facility] Diastolic blood 71 mm[Hg] 71 mm[Hg] [facility] pressure [facility] Systolic blood 125 mm[Hg] 125 mm[Hg] [facility] Body temperature 37.813264 Kaylie 37.899523 Kaylie [facility] Respiratory rate 16 /min 16 /min [facility] Oxygen 94 % 94 % [place] saturation in Medical Arterial blood Center by Pulse oximetry Heart rate 92 /min 92 /min [facility] Diastolic blood 72 mm[Hg] 72 mm[Hg] [facility] pressure [facility] Systolic blood 142 mm[Hg] 142 mm[Hg] [facility] Body weight 90.766916 kg 90.803368 kg [facility] Body temperature 37.603828 Kaylie 37.012573 Kaylie [facility] Respiratory rate 18 /min 18 /min [facility] Oxygen 92 % 92 % [place] saturation in Medical Arterial blood Center by Pulse oximetry Heart rate 96 /min 96 /min [facility] Body height 177.255949 cm 177.236202 cm [facility] Diastolic blood 70 mm[Hg] 70 mm[Hg] [facility] pressure [facility] Systolic blood 122 mm[Hg] 122 mm[Hg] [facility] Body mass index 28.6 kg/m2 28.6 kg/m2 [facility] (BMI) [Ratio] [facility] Body temperature 36.599484 Kaylie 36.282359 Kaylie [facility] Respiratory rate 17 /min 17 /min [facility] Oxygen 98 % 98 % [place] saturation in Medical Arterial blood Center by Pulse oximetry Heart rate 75 /min 75 /min [facility] Diastolic blood 65 mm[Hg] 65 mm[Hg] [facility] pressure [facility] Systolic blood 133 mm[Hg] 133 mm[Hg] [facility] Body temperature 36.846317 Kaylie 36.732518 Kaylie [facility] Respiratory rate 18 /min 18 /min [facility] Oxygen 98 % 98 % [place] saturation in Medical Arterial blood Center by Pulse oximetry Heart rate 90 /min 90 /min [facility] Diastolic blood 72 mm[Hg] 72 mm[Hg] [facility] pressure [facility] Systolic blood 127 mm[Hg] 127 mm[Hg] [facility] Body weight 75.952398 kg 75.224789 kg [facility] Body temperature 36.242000 Kaylie 36.587921 Kaylie [facility] Respiratory rate 19 /min 19 /min [facility] Oxygen 98 % 98 % [place] saturation in Medical Arterial blood Center by Pulse oximetry Heart rate 88 /min 88 /min [facility] Body height 170.504988 cm 170.069400 cm [facility] Diastolic blood 82 mm[Hg] 82 mm[Hg] [facility] pressure [facility] Systolic blood 140 mm[Hg] 140 mm[Hg] [facility] Body mass index 26.1 kg/m2 26.1 kg/m2 [facility] (BMI) [Ratio] [facility] Body temperature 35.005869 Kaylie 35.431275 Kaylie [facility] Respiratory rate 19 /min 19 /min [facility] Oxygen 96 % 96 % [place] saturation in Medical Arterial blood Center by Pulse oximetry Heart rate 89 /min 89 /min [facility] Diastolic blood 75 mm[Hg] 75 mm[Hg] [facility] pressure [facility] Systolic blood 102 mm[Hg] 102 mm[Hg] [facility] Body temperature 36.081374 Kaylie 36.778324 Kaylie [facility] Respiratory rate 18 /min 18 /min [facility] Oxygen 98 % 98 % [place] saturation in Medical Arterial blood Center by Pulse oximetry Heart rate 76 /min 76 /min [facility] Diastolic blood 76 mm[Hg] 76 mm[Hg] [facility] Systolic blood 112 mm[Hg] 112 mm[Hg] [facility] Body temperature 36.529273 Kaylie 36.012161 Kaylie [facility] Respiratory rate 18 /min 18 /min [facility] Oxygen 98 % 98 % [place] saturation in Medical Arterial blood Center by Pulse oximetry Heart rate 76 /min 76 /min [facility] Diastolic blood 76 mm[Hg] 76 mm[Hg] [facility] [place] Systolic blood 112 mm[Hg] 112 mm[Hg] [facility] Body temperature 37.913894 Kaylie 37.622489 Kaylie [facility] Respiratory rate 18 /min 18 /min [facility] Oxygen 100 % 100 % [facility] [place] saturation in Medical Arterial blood Center by Pulse oximetry Heart rate 88 /min 88 /min [facility] Diastolic blood 78 mm[Hg] 78 mm[Hg] [facility] [place] Systolic blood 130 mm[Hg] 130 mm[Hg] [facility] Body temperature 36.512119 Kaylie 36.537674 Kaylie [facility] Respiratory rate 17 /min 17 /min [facility] Oxygen 100 % 100 % [facility] [place] saturation in Medical Arterial blood Center by Pulse oximetry Heart rate 81 /min 81 /min [facility] Diastolic blood 71 mm[Hg] 71 mm[Hg] [facility] [place] Systolic blood 117 mm[Hg] 117 mm[Hg] [facility] Body weight 100.365030 kg 100.938339 kg [facility] Body temperature 36.116916 Kaylie 36.307853 Kaylie [facility] Respiratory rate 18 /min 18 /min [facility] Oxygen 94 % 94 % [place] saturation in Medical Arterial blood Center by Pulse oximetry Heart rate 97 /min 97 /min [facility] Body height 177.235859 cm 177.209987 cm [facility] Diastolic blood 72 mm[Hg] 72 mm[Hg] [facility] Systolic blood 118 mm[Hg] 118 mm[Hg] [facility] Body mass index 31.6 kg/m2 31.6 kg/m2 [facility] (BMI) [Ratio] [facility] Body temperature 36.334164 Kaylie 36.140011 Kaylie [facility] Respiratory rate 17 /min 17 /min [facility] Oxygen 95 % 95 % [place] saturation in Medical Arterial blood Center by Pulse oximetry Heart rate 94 /min 94 /min [facility] Diastolic blood 89 mm[Hg] 89 mm[Hg] [facility] pressure [facility] Systolic blood 146 mm[Hg] 146 mm[Hg] [facility] Body temperature 36.330651 Kaylie 36.774213 Kaylie [facility] Respiratory rate 18 /min 18 /min [facility] Oxygen 97 % 97 % [place] saturation in Medical Arterial blood Center by Pulse oximetry Heart rate 94 /min 94 /min [facility] Diastolic blood 85 mm[Hg] 85 mm[Hg] [facility] Systolic blood 157 mm[Hg] 157 mm[Hg] [facility] Oxygen 98 % 98 % [place] saturation in Medical Arterial blood Center by Pulse oximetry Heart rate 84 /min 84 /min [facility] Body height 175.952081 cm 175.437763 cm [facility] Diastolic blood 84 mm[Hg] 84 mm[Hg] [facility] Systolic blood 142 mm[Hg] 142 mm[Hg] [facility] Body mass index 25.6 kg/m2 25.6 kg/m2 [facility] (BMI) [Ratio] [facility] Body weight 78.778820 kg 78.011731 kg [facility] Measured [facility] Body temperature 36.179395 Kaylie 36.478142 Kaylie [facility] Respiratory rate 19 /min 19 /min [facility] Body temperature 36.854325 Kaylie 36.403345 Kaylie [facility] Respiratory rate 18 /min 18 /min [facility] Oxygen 96 % 96 % [place] saturation in Medical Arterial blood Center by Pulse oximetry Heart rate 95 /min 95 /min [facility] Diastolic blood 80 mm[Hg] 80 mm[Hg] [facility] Systolic blood 182 mm[Hg] 182 mm[Hg] [facility] Body temperature 36.300943 Kaylie 36.280205 Kaylie [facility] Respiratory rate 18 /min 18 /min [facility] Oxygen 96 % 96 % [facility] [place] saturation in Medical Arterial blood Center by Pulse oximetry Heart rate 92 /min 92 /min [facility] Diastolic blood 89 mm[Hg] 89 mm[Hg] [facility] pressure [facility] Center Systolic blood 139 mm[Hg] 139 mm[Hg] [facility] Body temperature 37.475159 Kaylie 37.089545 Kaylie [facility] Respiratory rate 18 /min 18 /min [facility] Oxygen 98 % 98 % [place] saturation in Medical Arterial blood Center by Pulse oximetry Heart rate 90 /min 90 /min [facility] Diastolic blood 80 mm[Hg] 80 mm[Hg] [facility] Systolic blood 138 mm[Hg] 138 mm[Hg] [facility] Body temperature 37.049247 Kaylie 37.841827 Kaylie [facility] Respiratory rate 18 /min 18 /min [facility] Oxygen 92 % 92 % [facility] saturation in Medical Arterial blood Center by Pulse oximetry Heart rate 87 /min 87 /min [facility] Diastolic blood 66 mm[Hg] 66 mm[Hg] [facility] Systolic blood 119 mm[Hg] 119 mm[Hg] [facility] Body temperature 36.448190 Kaylie 36.975334 Kaylie [facility] Respiratory rate 20 /min 20 /min [facility] Heart rate 94 /min 94 /min [facility] Diastolic blood 73 mm[Hg] 73 mm[Hg] [facility] Systolic blood 119 mm[Hg] 119 mm[Hg] [facility] [place] Body weight 88.216805 kg 88.513439 kg [facility] Body temperature 37.345840 Kaylie 37.763650 Kaylie [facility] Respiratory rate 18 /min 18 /min [facility] Oxygen 96 % 96 % [place] saturation in Medical Arterial blood Center by Pulse oximetry Heart rate 90 /min 90 /min [facility] Body height 175.332245 cm 175.447607 cm [facility] Diastolic blood 72 mm[Hg] 72 mm[Hg] [facility] pressure Medical Center Systolic blood 135 mm[Hg] 135 mm[Hg] [facility] Body mass index 28.7 kg/m2 28.7 kg/m2 [facility] (BMI) [Ratio] Medical Center Body weight 104.422765 kg 104.294639 kg [facility] Body temperature 37.337151 Kaylie 37.671393 Kaylie [facility] Respiratory rate 20 /min 20 /min [facility] Oxygen 93 % 93 % [facility] saturation in Medical Arterial blood Center by Pulse oximetry Heart rate 93 /min 93 /min [facility] Body height 177.718165 cm 177.933572 cm [facility] Diastolic blood 73 mm[Hg] 73 mm[Hg] [facility] Systolic blood 125 mm[Hg] 125 mm[Hg] [facility] Body mass index 33.0 kg/m2 33.0 kg/m2 [facility] (BMI) [Ratio] Medical Center Body temperature 36.402721 Kaylie 36.426182 Kaylie [facility] Respiratory rate 18 /min 18 /min [facility] Oxygen 99 % 99 % [place] saturation in Medical Arterial blood Center by Pulse oximetry Heart rate 89 /min 89 /min [facility] Diastolic blood 75 mm[Hg] 75 mm[Hg] [facility] Systolic blood 132 mm[Hg] 132 mm[Hg] [facility] Body temperature 36.063469 Kaylie 36.879367 Kaylie [facility] Respiratory rate 18 /min 18 /min [facility] Oxygen 99 % 99 % [place] saturation in Medical Arterial blood Center by Pulse oximetry Heart rate 78 /min 78 /min [facility] Diastolic blood 82 mm[Hg] 82 mm[Hg] [facility] pressure [facility] Center Systolic blood 133 mm[Hg] 133 mm[Hg] [facility] Body weight 104.570047 kg 104.532995 kg [facility] Body temperature 36.867761 Kaylie 36.692163 Kaylie [facility] Respiratory rate 20 /min 20 /min [facility] Oxygen 98 % 98 % [facility] saturation in Medical Arterial blood Center by Pulse oximetry Heart rate 98 /min 98 /min [facility] Body height 177.891691 cm 177.454145 cm [facility] Diastolic blood 74 mm[Hg] 74 mm[Hg] [facility] pressure [facility] Center Systolic blood 118 mm[Hg] 118 mm[Hg] [facility] Body mass index 33.0 kg/m2 33.0 kg/m2 [facility] (BMI) [Ratio] [facility] Center Body temperature 36.040874 Kaylie 36.138530 Kaylie [facility] Respiratory rate 18 /min 18 /min [facility] Oxygen 96 % 96 % [place] saturation in Medical Arterial blood Center by Pulse oximetry Heart rate 89 /min 89 /min [facility] Diastolic blood 87 mm[Hg] 87 mm[Hg] [facility] pressure [facility] Center Systolic blood 132 mm[Hg] 132 mm[Hg] [facility] Body temperature 37.242188 Kaylie 37.807111 Kaylie [facility] Respiratory rate 18 /min 18 /min [facility] Oxygen 99 % 99 % [facility] saturation in Medical Arterial blood Center by Pulse oximetry Heart rate 84 /min 84 /min [facility] Diastolic blood 72 mm[Hg] 72 mm[Hg] [facility] pressure [facility] Center Systolic blood 117 mm[Hg] 117 mm[Hg] [facility] Body temperature 36.515931 Kaylie 36.418305 Kaylie [facility] Respiratory rate 18 /min 18 /min [facility] Oxygen 98 % 98 % [facility] [place] saturation in Medical Arterial blood Center by Pulse oximetry Heart rate 88 /min 88 /min [facility] Diastolic blood 95 mm[Hg] 95 mm[Hg] [facility] pressure Medical Center Systolic blood 135 mm[Hg] 135 mm[Hg] [facility] Body temperature 36.340655 Kaylie 36.470224 Kaylie [facility] Respiratory rate 18 /min 18 /min [facility] Oxygen 96 % 96 % [facility] saturation in Medical Arterial blood Center by Pulse oximetry Heart rate 98 /min 98 /min [facility] Diastolic blood 96 mm[Hg] 96 mm[Hg] [facility] Systolic blood 138 mm[Hg] 138 mm[Hg] [facility] Body temperature 36.475459 Kaylie 36.577330 Kaylie [facility] Respiratory rate 18 /min 18 /min [facility] Oxygen 98 % 98 % [facility] saturation in Medical Arterial blood Center by Pulse oximetry Heart rate 76 /min 76 /min [facility] Diastolic blood 76 mm[Hg] 76 mm[Hg] [facility] Systolic blood 132 mm[Hg] 132 mm[Hg] [facility] Body temperature 36.603935 Kaylie 36.907096 Kaylie [facility] Respiratory rate 18 /min 18 /min [facility] Oxygen 98 % 98 % [place] saturation in Medical Arterial blood Center by Pulse oximetry Heart rate 76 /min 76 /min [facility] Diastolic blood 78 mm[Hg] 78 mm[Hg] [facility] Systolic blood 112 mm[Hg] 112 mm[Hg] [facility] Heart rate 105 /min 105 /min [facility] Body height 177.921081 cm 177.509761 cm [facility] Diastolic blood 65 mm[Hg] 65 mm[Hg] [facility] Systolic blood 124 mm[Hg] 124 mm[Hg] [facility] Body mass index 33.0 kg/m2 33.0 kg/m2 [facility] (BMI) [Ratio] Medical Center Body weight 104.168290 kg 104.237695 kg [facility] Body temperature 37.406554 Kaylie 37.233413 Kaylie [facility] Respiratory rate 20 /min 20 /min [facility] Oxygen 92 % 92 % [facility] [place] saturation in Medical Arterial blood Center by Pulse oximetry Body temperature 37.069362 Kaylie 37.872513 Kaylie [facility] Respiratory rate 18 /min 18 /min [facility] Oxygen 93 % 93 % [facility] saturation in Medical Arterial blood Center by Pulse oximetry Heart rate 101 /min 101 /min [facility] Diastolic blood 68 mm[Hg] 68 mm[Hg] [facility] Center Systolic blood 108 mm[Hg] 108 mm[Hg] [facility] Body weight 79.882125 kg 79.139875 kg [facility] Body temperature 37.214435 Kaylie 37.717439 Kaylie [facility] Respiratory rate 18 /min 18 /min [facility] Oxygen 95 % 95 % [facility] [place] saturation in Medical Arterial blood Center by Pulse oximetry Heart rate 101 /min 101 /min [facility] Body height 175.286956 cm 175.550126 cm [facility] Diastolic blood 66 mm[Hg] 66 mm[Hg] [facility] pressure Medical Center Systolic blood 98 mm[Hg] 98 mm[Hg] [facility] Body mass index 25.8 kg/m2 25.8 kg/m2 [facility] (BMI) [Ratio] Medical Center Body temperature 36.484589 Kaylie 36.040454 Kaylie [facility] Respiratory rate 18 /min 18 /min [facility] Oxygen 98 % 98 % [facility] [place] saturation in Medical Arterial blood Center by Pulse oximetry Heart rate 79 /min 79 /min [facility] Diastolic blood 69 mm[Hg] 69 mm[Hg] [facility] Systolic blood 103 mm[Hg] 103 mm[Hg] [facility] Body temperature 36.620911 Kaylie 36.615630 Kaylie [facility] Respiratory rate 18 /min 18 /min [facility] Oxygen 98 % 98 % [facility] saturation in Medical Arterial blood Center by Pulse oximetry Heart rate 78 /min 78 /min [facility] Diastolic blood 76 mm[Hg] 76 mm[Hg] [facility] Systolic blood 122 mm[Hg] 122 mm[Hg] [facility] Body temperature 36.875105 Kaylie 36.972622 Kaylie [facility] Respiratory rate 19 /min 19 /min [facility] Oxygen 96 % 96 % [facility] saturation in Medical Arterial blood Center by Pulse oximetry Heart rate 86 /min 86 /min [facility] Diastolic blood 63 mm[Hg] 63 mm[Hg] [facility] Systolic blood 103 mm[Hg] 103 mm[Hg] [facility] Body temperature 36.533943 Kaylie 36.715668 Kaylie [facility] Respiratory rate 18 /min 18 /min [facility] Oxygen 98 % 98 % [facility] saturation in Medical Arterial blood Center by Pulse oximetry Heart rate 84 /min 84 /min [facility] Diastolic blood 67 mm[Hg] 67 mm[Hg] [facility] pressure [facility] Center Systolic blood 119 mm[Hg] 119 mm[Hg] [facility] Body temperature 37.690982 Kaylie 37.172802 Kaylie [facility] Respiratory rate 18 /min 18 /min [facility] Oxygen 98 % 98 % [facility] [place] saturation in Medical Arterial blood Center by Pulse oximetry Heart rate 91 /min 91 /min [facility] Diastolic blood 60 mm[Hg] 60 mm[Hg] [facility] pressure [facility] Center Systolic blood 103 mm[Hg] 103 mm[Hg] [facility] Body temperature 36.273620 Kaylie 36.673097 Kaylie [facility] Respiratory rate 18 /min 18 /min [facility] Oxygen 98 % 98 % [facility] [place] saturation in Medical Arterial blood Center by Pulse oximetry Heart rate 76 /min 76 /min [facility] Diastolic blood 76 mm[Hg] 76 mm[Hg] [facility] pressure [facility] Center Systolic blood 124 mm[Hg] 124 mm[Hg] [facility] Body temperature 36.195646 Kaylie 36.101703 Kaylie [facility] Respiratory rate 18 /min 18 /min [facility] Oxygen 98 % 98 % [facility] [place] saturation in Medical Arterial blood Center by Pulse oximetry Heart rate 76 /min 76 /min [facility] Diastolic blood 76 mm[Hg] 76 mm[Hg] [facility] Systolic blood 124 mm[Hg] 124 mm[Hg] [facility] Body weight 104.591899 kg 104.077023 kg [facility] [place] Body temperature 36.344478 Kaylie 36.233433 Kaylie [facility] Respiratory rate 18 /min 18 /min [facility] Oxygen 96 % 96 % [facility] saturation in Medical Arterial blood Center by Pulse oximetry Heart rate 90 /min 90 /min [facility] Body height 177.157069 cm 177.074742 cm [facility] Diastolic blood 76 mm[Hg] 76 mm[Hg] [facility] Systolic blood 116 mm[Hg] 116 mm[Hg] [facility] Body mass index 33.0 kg/m2 33.0 kg/m2 [facility] (BMI) [Ratio] Medical Center Body temperature 36.174233 Kaylie 36.935091 Kaylie [facility] Respiratory rate 18 /min 18 /min [facility] Heart rate 85 /min 85 /min [facility] Diastolic blood 82 mm[Hg] 82 mm[Hg] [facility] Systolic blood 141 mm[Hg] 141 mm[Hg] [facility] Body temperature 36.711080 Kaylie 36.424157 Kaylie [facility] Respiratory rate 18 /min 18 /min [facility] Heart rate 84 /min 84 /min [facility] Diastolic blood 81 mm[Hg] 81 mm[Hg] [facility] Systolic blood 139 mm[Hg] 139 mm[Hg] [facility] Body weight 95.554915 kg 95.814001 kg [facility] Body temperature 36.987884 Kaylie 36.346146 Kaylie [facility] Respiratory rate 17 /min 17 /min [facility] Oxygen 99 % 99 % [facility] saturation in Medical Arterial blood Center by Pulse oximetry Heart rate 86 /min 86 /min [facility] Body height 177.248656 cm 177.278280 cm [facility] Diastolic blood 87 mm[Hg] 87 mm[Hg] [facility] Systolic blood 137 mm[Hg] 137 mm[Hg] [facility] Body mass index 30.1 kg/m2 30.1 kg/m2 [facility] (BMI) [Ratio] Medical Center Body temperature 37.238689 Kaylie 37.968372 Kaylie [facility] Respiratory rate 18 /min 18 /min [facility] Oxygen 94 % 94 % [facility] saturation in Medical Arterial blood Center by Pulse oximetry Heart rate 103 /min 103 /min [facility] Diastolic blood 72 mm[Hg] 72 mm[Hg] [facility] Systolic blood 111 mm[Hg] 111 mm[Hg] [facility] Body temperature 36.636031 Kaylie 36.091273 Kaylie [facility] Respiratory rate 16 /min 16 /min [facility] Oxygen 96 % 96 % [facility] saturation in Medical Arterial blood Center by Pulse oximetry Heart rate 97 /min 97 /min [facility] Diastolic blood 77 mm[Hg] 77 mm[Hg] [facility] pressure [facility] Center Systolic blood 133 mm[Hg] 133 mm[Hg] [facility] Body temperature 36.989900 Kaylie 36.301805 Kaylie [facility] Respiratory rate 17 /min 17 /min [facility] Oxygen 94 % 94 % [facility] saturation in Medical Arterial blood Center by Pulse oximetry Heart rate 92 /min 92 /min [facility] Diastolic blood 80 mm[Hg] 80 mm[Hg] [facility] [place] Systolic blood 122 mm[Hg] 122 mm[Hg] [facility] Body weight 113.871141 kg 113.674191 kg [facility] Body temperature 36.311828 Kaylie 36.576887 Kaylie [facility] Respiratory rate 16 /min 16 /min [facility] Oxygen 94 % 94 % [facility] saturation in Medical Arterial blood Center by Pulse oximetry Heart rate 90 /min 90 /min [facility] Body height 177.865013 cm 177.185382 cm [facility] Diastolic blood 64 mm[Hg] 64 mm[Hg] [facility] Systolic blood 128 mm[Hg] 128 mm[Hg] [facility] Body mass index 35.8 kg/m2 35.8 kg/m2 [facility] (BMI) [Ratio] Medical Center Body temperature 36.460349 Kaylie 36.625060 Kaylie [facility] Respiratory rate 18 /min 18 /min [facility] Oxygen 95 % 95 % [facility] saturation in Medical Arterial blood Center by Pulse oximetry Heart rate 76 /min 76 /min [facility] Diastolic blood 76 mm[Hg] 76 mm[Hg] [facility] Systolic blood 128 mm[Hg] 128 mm[Hg] [facility] Body temperature 36.692524 Kaylie 36.129879 Kaylie [facility] Respiratory rate 18 /min 18 /min [facility] Oxygen 97 % 97 % [facility] saturation in Medical Arterial blood Center by Pulse oximetry Heart rate 78 /min 78 /min [facility] Diastolic blood 70 mm[Hg] 70 mm[Hg] [facility] Systolic blood 124 mm[Hg] 124 mm[Hg] [facility] Body weight 86.727344 kg 86.319334 kg [facility] [place] Body temperature 36.370761 Kaylie 36.140885 Kaylie [facility] Respiratory rate 19 /min 19 /min [facility] Oxygen 97 % 97 % [facility] saturation in Medical Arterial blood Center by Pulse oximetry Heart rate 74 /min 74 /min [facility] Body height 180.301500 cm 180.020895 cm [facility] Diastolic blood 68 mm[Hg] 68 mm[Hg] [facility] Systolic blood 128 mm[Hg] 128 mm[Hg] [facility] Body mass index 26.4 kg/m2 26.4 kg/m2 [facility] (BMI) [Ratio] Medical Center Body temperature 36.425209 Kaylie 36.541867 Kaylie [facility] Respiratory rate 18 /min 18 /min [facility] Oxygen 98 % 98 % [place] saturation in Medical Arterial blood Center by Pulse oximetry Heart rate 91 /min 91 /min [facility] Diastolic blood 65 mm[Hg] 65 mm[Hg] [facility] Systolic blood 129 mm[Hg] 129 mm[Hg] [facility] Body temperature 36.177195 Kaylie 36.100249 Kaylie [facility] Respiratory rate 16 /min 16 /min [facility] Oxygen 98 % 98 % [place] saturation in Medical Arterial blood Center by Pulse oximetry Heart rate 82 /min 82 /min [facility] Diastolic blood 64 mm[Hg] 64 mm[Hg] [facility] Systolic blood 123 mm[Hg] 123 mm[Hg] [facility] Body temperature 36.425461 Kaylie 36.511805 Kaylie [facility] Respiratory rate 14 /min 14 /min [facility] Oxygen 95 % 95 % [facility] saturation in Medical Arterial blood Center by Pulse oximetry Heart rate 61 /min 61 /min [facility] Diastolic blood 74 mm[Hg] 74 mm[Hg] [facility] pressure [facility] Center Systolic blood 124 mm[Hg] 124 mm[Hg] [facility] Body temperature 37.514516 Kaylie 37.752090 Kaylie [facility] Respiratory rate 16 /min 16 /min [facility] Oxygen 99 % 99 % [facility] saturation in Medical Arterial blood Center by Pulse oximetry Heart rate 89 /min 89 /min [facility] Diastolic blood 76 mm[Hg] 76 mm[Hg] [facility] pressure [facility] Center Systolic blood 125 mm[Hg] 125 mm[Hg] [facility] [place] Body temperature 37.005686 Kaylie 37.325043 Kaylie [facility] Respiratory rate 14 /min 14 /min [facility] Oxygen 99 % 99 % [facility] saturation in Medical Arterial blood Center by Pulse oximetry Heart rate 91 /min 91 /min [facility] Diastolic blood 80 mm[Hg] 80 mm[Hg] [facility] Systolic blood 120 mm[Hg] 120 mm[Hg] [facility] Body temperature 36.510350 Kaylie 36.417709 Kaylie [facility] Respiratory rate 18 /min 18 /min [facility] Oxygen 99 % 99 % [facility] saturation in Medical Arterial blood Center by Pulse oximetry Heart rate 93 /min 93 /min [facility] Diastolic blood 78 mm[Hg] 78 mm[Hg] [facility] Systolic blood 115 mm[Hg] 115 mm[Hg] [facility] [place] Body temperature 36.517557 Kaylie 36.995489 Kaylie [facility] Respiratory rate 18 /min 18 /min [facility] Oxygen 95 % 95 % [facility] saturation in Medical Arterial blood Center by Pulse oximetry Heart rate 83 /min 83 /min [facility] Diastolic blood 69 mm[Hg] 69 mm[Hg] [facility] pressure [facility] Center Systolic blood 102 mm[Hg] 102 mm[Hg] [facility] Body temperature 37.827595 Kaylie 37.146232 Kaylie [facility] Respiratory rate 18 /min 18 /min [facility] Oxygen 98 % 98 % [facility] saturation in Medical Arterial blood Center by Pulse oximetry Heart rate 91 /min 91 /min [facility] Diastolic blood 65 mm[Hg] 65 mm[Hg] [facility] pressure [facility] Center Systolic blood 101 mm[Hg] 101 mm[Hg] [facility] Body temperature 37.009826 Kalyie 37.967160 Kaylie [facility] Respiratory rate 18 /min 18 /min [facility] Oxygen 96 % 96 % [facility] saturation in Medical Arterial blood Center by Pulse oximetry Heart rate 94 /min 94 /min [facility] Diastolic blood 87 mm[Hg] 87 mm[Hg] [facility] pressure [facility] Center Systolic blood 156 mm[Hg] 156 mm[Hg] [facility] Body temperature 36.226096 Kaylie 36.329849 Kaylie [facility] Respiratory rate 17 /min 17 /min [facility] Oxygen 96 % 96 % [facility] saturation in Medical Arterial blood Center by Pulse oximetry Heart rate 95 /min 95 /min [facility] Diastolic blood 91 mm[Hg] 91 mm[Hg] [facility] pressure [facility] Center Systolic blood 149 mm[Hg] 149 mm[Hg] [facility] [place] Body temperature 36.006698 Kaylie 36.329690 Kaylie [facility] Respiratory rate 17 /min 17 /min [facility] Oxygen 96 % 96 % [facility] saturation in Medical Arterial blood Center by Pulse oximetry Heart rate 92 /min 92 /min [facility] Diastolic blood 86 mm[Hg] 86 mm[Hg] [facility] pressure [facility] Center Systolic blood 157 mm[Hg] 157 mm[Hg] [facility] Body temperature 36.185158 Kaylie 36.543787 Kaylie [facility] Respiratory rate 19 /min 19 /min [facility] Oxygen 99 % 99 % [facility] saturation in Medical Arterial blood Center by Pulse oximetry Heart rate 100 /min 100 /min [facility] Diastolic blood 91 mm[Hg] 91 mm[Hg] [facility] pressure [facility] Center Systolic blood 160 mm[Hg] 160 mm[Hg] [facility] Body temperature 36.266584 Kaylie 36.780860 Kaylie [facility] Respiratory rate 22 /min 22 /min [facility] Oxygen 95 % 95 % [place] saturation in Medical Arterial blood Center by Pulse oximetry Heart rate 82 /min 82 /min [facility] Diastolic blood 91 mm[Hg] 91 mm[Hg] [facility] pressure [facility] Center Systolic blood 143 mm[Hg] 143 mm[Hg] [facility] Body temperature 37.066958 Kaylie 37.512308 Kaylie [facility] Respiratory rate 20 /min 20 /min [facility] [facility] Oxygen 95 % 95 % [place] saturation in Medical Arterial blood Center by Pulse oximetry Heart rate 111 /min 111 /min [facility] Diastolic blood 89 mm[Hg] 89 mm[Hg] [facility] Systolic blood 128 mm[Hg] 128 mm[Hg] [facility] Respiratory rate 20 /min 20 /min [facility] Oxygen 95 % 95 % [facility] saturation in Medical Arterial blood Center by Pulse oximetry Heart rate 113 /min 113 /min [facility] Body height 177.903751 cm 177.061728 cm [facility] Diastolic blood 68 mm[Hg] 68 mm[Hg] [facility] Systolic blood 133 mm[Hg] 133 mm[Hg] [facility] Body mass index 31.6 kg/m2 31.6 kg/m2 [facility] (BMI) [Ratio] Medical Center Body weight 100.064335 kg 100.666869 kg [facility] Body temperature 37.122763 Kaylie 37.556454 Kaylie [facility] Body temperature 36.084590 Kaylie 36.088536 Kaylie [facility] Respiratory rate 18 /min 18 /min [facility] Oxygen 97 % 97 % [facility] saturation in Medical Arterial blood Center by Pulse oximetry Heart rate 67 /min 67 /min [facility] Diastolic blood 78 mm[Hg] 78 mm[Hg] [facility] Systolic blood 134 mm[Hg] 134 mm[Hg] [facility] Body weight 95.248439 kg 95.331480 kg [facility] Measured [facility] Body temperature 36.735344 Kaylie 36.547707 Kaylie [facility] Respiratory rate 20 /min 20 /min [facility] Oxygen 100 % 100 % [place] saturation in Medical Arterial blood Center by Pulse oximetry Heart rate 84 /min 84 /min [facility] Body height 177.332217 cm 177.867832 cm [facility] Diastolic blood 90 mm[Hg] 90 mm[Hg] [facility] Systolic blood 130 mm[Hg] 130 mm[Hg] [facility] Body mass index 30.0 kg/m2 30.0 kg/m2 [facility] (BMI) [Ratio] [facility] Center Body temperature 36.197767 Kaylie 36.993588 Kaylie [facility] Respiratory rate 18 /min 18 /min [facility] Oxygen 95 % 95 % [place] saturation in Medical Arterial blood Center by Pulse oximetry Heart rate 73 /min 73 /min [facility] Diastolic blood 71 mm[Hg] 71 mm[Hg] [facility] Systolic blood 139 mm[Hg] 139 mm[Hg] [facility] Body weight 100.473206 kg 100.392831 kg [facility] Body temperature 36.862614 Kaylie 36.374950 Kaylie [facility] Respiratory rate 18 /min 18 /min [facility] Oxygen 92 % 92 % [facility] saturation in Medical Arterial blood Center by Pulse oximetry Heart rate 102 /min 102 /min [facility] Body height 177.564299 cm 177.764001 cm [facility] Diastolic blood 56 mm[Hg] 56 mm[Hg] [facility] Center Systolic blood 109 mm[Hg] 109 mm[Hg] [facility] Body mass index 31.6 kg/m2 31.6 kg/m2 [facility] (BMI) [Ratio] Medical Center Body temperature 36.310161 Kaylie 36.351518 Kaylie [facility] Respiratory rate 18 /min 18 /min [facility] Oxygen 98 % 98 % [place] saturation in Medical Arterial blood Center by Pulse oximetry Heart rate 88 /min 88 /min [facility] Diastolic blood 78 mm[Hg] 78 mm[Hg] [facility] Systolic blood 148 mm[Hg] 148 mm[Hg] [facility] Body temperature 36.864165 Kaylie 36.624387 Kaylie [facility] Respiratory rate 18 /min 18 /min [facility] Oxygen 98 % 98 % [place] saturation in Medical Arterial blood Center by Pulse oximetry Heart rate 98 /min 98 /min [facility] Diastolic blood 68 mm[Hg] 68 mm[Hg] [facility] Systolic blood 113 mm[Hg] 113 mm[Hg] [facility] Body temperature 37.980754 Kaylie 37.464610 Kaylie [facility] Respiratory rate 18 /min 18 /min [facility] Oxygen 95 % 95 % [place] saturation in Medical Arterial blood Center by Pulse oximetry Heart rate 84 /min 84 /min [facility] Diastolic blood 82 mm[Hg] 82 mm[Hg] [facility] Systolic blood 131 mm[Hg] 131 mm[Hg] [facility] Body temperature 37.967718 Kaylie 37.089884 Kaylie [facility] Respiratory rate 18 /min 18 /min [facility] Oxygen 94 % 94 % [place] saturation in Medical Arterial blood Center by Pulse oximetry Heart rate 88 /min 88 /min [facility] Diastolic blood 91 mm[Hg] 91 mm[Hg] [facility] Systolic blood 134 mm[Hg] 134 mm[Hg] [facility] [place] Body weight 102.780337 kg 102.721685 kg [facility] Respiratory rate 18 /min 18 /min [facility] Oxygen 93 % 93 % [facility] saturation in Medical Arterial blood Center by Pulse oximetry Heart rate 98 /min 98 /min [facility] Body height 182.595203 cm 182.262070 cm [facility] Diastolic blood 80 mm[Hg] 80 mm[Hg] [facility] Systolic blood 178 mm[Hg] 178 mm[Hg] [facility] [place] Body mass index 30.5 kg/m2 30.5 kg/m2 [facility] (BMI) [Ratio] Medical Center Body temperature 36.201744 Kaylie 36.375907 Kaylie [facility] Respiratory rate 18 /min 18 /min [facility] Oxygen 95 % 95 % [facility] saturation in Medical Arterial blood Center by Pulse oximetry Heart rate 96 /min 96 /min [facility] Diastolic blood 89 mm[Hg] 89 mm[Hg] [facility] pressure [facility] Center Systolic blood 114 mm[Hg] 114 mm[Hg] [facility] Body temperature 36.778115 Kaylie 36.371743 Kaylie [facility] Respiratory rate 17 /min 17 /min [facility] Oxygen 96 % 96 % [facility] saturation in Medical Arterial blood Center by Pulse oximetry Heart rate 98 /min 98 /min [facility] Diastolic blood 68 mm[Hg] 68 mm[Hg] [facility] [place] Systolic blood 128 mm[Hg] 128 mm[Hg] [facility] Oxygen 97 % 97 % [facility] saturation in Medical Arterial blood Center by Pulse oximetry Heart rate 116 /min 116 /min [facility] Diastolic blood 61 mm[Hg] 61 mm[Hg] [facility] Systolic blood 117 mm[Hg] 117 mm[Hg] [facility] [place] Respiratory rate 18 /min 18 /min [facility] Body temperature 36.442953 Kaylie 36.518405 Kaylie [facility] Body temperature 36.875875 Kaylie 36.875456 Kaylie [facility] Respiratory rate 18 /min 18 /min [facility] Oxygen 97 % 97 % [facility] saturation in Medical Arterial blood Center by Pulse oximetry Heart rate 76 /min 76 /min [facility] Diastolic blood 76 mm[Hg] 76 mm[Hg] [facility] Systolic blood 138 mm[Hg] 138 mm[Hg] [facility] Body temperature 36.634854 Kaylie 36.543970 Kaylie [facility] Respiratory rate 18 /min 18 /min [facility] Oxygen 98 % 98 % [facility] saturation in Medical Arterial blood Center by Pulse oximetry Heart rate 85 /min 85 /min [facility] Diastolic blood 95 mm[Hg] 95 mm[Hg] [facility] pressure [facility] Center Systolic blood 154 mm[Hg] 154 mm[Hg] [facility] Body weight 86.963941 kg 86.273510 kg [facility] Body temperature 36.345866 Kaylie 36.089829 Kaylie [facility] Respiratory rate 20 /min 20 /min [facility] Oxygen 95 % 95 % [facility] [place] saturation in Medical Arterial blood Center by Pulse oximetry Heart rate 76 /min 76 /min [facility] Body height 170.750174 cm 170.016473 cm [facility] Diastolic blood 74 mm[Hg] 74 mm[Hg] [facility] pressure [facility] Center Systolic blood 120 mm[Hg] 120 mm[Hg] [facility] Body mass index 29.7 kg/m2 29.7 kg/m2 [facility] (BMI) [Ratio] Medical Center Body temperature 36.838947 Kaylie 36.765141 Kaylie [facility] Respiratory rate 16 /min 16 /min [facility] Oxygen 95 % 95 % [facility] [place] saturation in Medical Arterial blood Center by Pulse oximetry Heart rate 92 /min 92 /min [facility] Diastolic blood 68 mm[Hg] 68 mm[Hg] [facility] Systolic blood 112 mm[Hg] 112 mm[Hg] [facility] Body temperature 37.543890 Kaylie 37.944445 Kaylie [facility] Respiratory rate 18 /min 18 /min [facility] Oxygen 95 % 95 % [facility] [place] saturation in Medical Arterial blood Center by Pulse oximetry Heart rate 88 /min 88 /min [facility] Diastolic blood 57 mm[Hg] 57 mm[Hg] [facility] Systolic blood 107 mm[Hg] 107 mm[Hg] [facility] Body weight 120.676991 kg 120.408804 kg [facility] Body temperature 36.217875 Kaylie 36.799540 Kaylie [facility] Respiratory rate 18 /min 18 /min [facility] Oxygen 98 % 98 % [place] saturation in Medical Arterial blood Center by Pulse oximetry Heart rate 84 /min 84 /min [facility] Body height 182.179182 cm 182.689939 cm [facility] Diastolic blood 78 mm[Hg] 78 mm[Hg] [facility] Systolic blood 148 mm[Hg] 148 mm[Hg] [facility] Body mass index 35.8 kg/m2 35.8 kg/m2 [facility] (BMI) [Ratio] Medical Center Body temperature 37.512776 Kaylie 37.047582 Kaylie [facility] Respiratory rate 18 /min 18 /min [facility] Oxygen 95 % 95 % [facility] saturation in Medical Arterial blood Center by Pulse oximetry Heart rate 94 /min 94 /min [facility] Diastolic blood 56 mm[Hg] 56 mm[Hg] [facility] Systolic blood 110 mm[Hg] 110 mm[Hg] [facility] [place] Body temperature 38.143802 Kaylie 38.130580 Kaylie [facility] Respiratory rate 18 /min 18 /min [facility] Oxygen 97 % 97 % [facility] saturation in Medical Arterial blood Center by Pulse oximetry Heart rate 98 /min 98 /min [facility] Diastolic blood 87 mm[Hg] 87 mm[Hg] [facility] pressure [facility] Center Systolic blood 140 mm[Hg] 140 mm[Hg] [facility] Body temperature 36.311604 Kaylie 36.104999 Kaylie [facility] Respiratory rate 16 /min 16 /min [facility] Oxygen 98 % 98 % [facility] saturation in Medical Arterial blood Center by Pulse oximetry Heart rate 87 /min 87 /min [facility] Diastolic blood 84 mm[Hg] 84 mm[Hg] [facility] Systolic blood 138 mm[Hg] 138 mm[Hg] [facility] Body temperature 37.995774 Kaylie 37.176936 Kaylie [facility] Respiratory rate 18 /min 18 /min [facility] Oxygen 97 % 97 % [facility] saturation in Medical Arterial blood Center by Pulse oximetry Heart rate 88 /min 88 /min [facility] Diastolic blood 72 mm[Hg] 72 mm[Hg] [facility] Systolic blood 134 mm[Hg] 134 mm[Hg] [facility] Body temperature 36.760225 Kaylie 36.457037 Kaylie [facility] Respiratory rate 18 /min 18 /min [facility] Oxygen 98 % 98 % [facility] saturation in Medical Arterial blood Center by Pulse oximetry Heart rate 71 /min 71 /min [facility] Diastolic blood 68 mm[Hg] 68 mm[Hg] [facility] pressure [facility] Center Systolic blood 133 mm[Hg] 133 mm[Hg] [facility] Body temperature 35.769715 Kaylie 35.624878 Kaylie [facility] Respiratory rate 17 /min 17 /min [facility] Oxygen 95 % 95 % [facility] saturation in Medical Arterial blood Center by Pulse oximetry Heart rate 93 /min 93 /min [facility] Diastolic blood 105 mm[Hg] 105 mm[Hg] [facility] pressure [facility] Center Systolic blood 180 mm[Hg] 180 mm[Hg] [facility] [place] Body temperature 36.504972 Kaylie 36.097941 Kaylie [facility] Respiratory rate 20 /min 20 /min [facility] Oxygen 97 % 97 % [facility] saturation in Medical Arterial blood Center by Pulse oximetry Heart rate 89 /min 89 /min [facility] Diastolic blood 92 mm[Hg] 92 mm[Hg] [facility] [place] Systolic blood 158 mm[Hg] 158 mm[Hg] [facility] Body temperature 36.339850 Kaylie 36.483736 Kaylie [facility] Respiratory rate 18 /min 18 /min [facility] Oxygen 96 % 96 % [facility] saturation in Medical Arterial blood Center by Pulse oximetry Heart rate 86 /min 86 /min [facility] Diastolic blood 87 mm[Hg] 87 mm[Hg] [facility] Systolic blood 163 mm[Hg] 163 mm[Hg] [facility] [place] Body temperature 36.130998 Kaylie 36.751241 Kaylie [facility] Respiratory rate 20 /min 20 /min [facility] Oxygen 98 % 98 % [facility] saturation in Medical Arterial blood Center by Pulse oximetry Heart rate 89 /min 89 /min [facility] Diastolic blood 103 mm[Hg] 103 mm[Hg] [facility] Systolic blood 154 mm[Hg] 154 mm[Hg] [facility] Heart rate 91 /min 91 /min [facility] Diastolic blood 110 mm[Hg] 110 mm[Hg] [facility] [place] Systolic blood 167 mm[Hg] 167 mm[Hg] [facility] Body temperature 36.063183 Kaylie 36.880469 Kaylie [facility] Respiratory rate 18 /min 18 /min [facility] Oxygen 98 % 98 % [facility] [place] saturation in Medical Arterial blood Center by Pulse oximetry Body temperature 36.151054 Kaylie 36.985999 Kaylie [facility] Respiratory rate 20 /min 20 /min [facility] Oxygen 95 % 95 % [facility] saturation in Medical Arterial blood Center by Pulse oximetry Heart rate 96 /min 96 /min [facility] Diastolic blood 146 mm[Hg] 146 mm[Hg] [facility] [place] Systolic blood 211 mm[Hg] 211 mm[Hg] [facility] Body temperature 36.649939 Kaylie 36.644420 Kaylie [facility] Respiratory rate 18 /min 18 /min [facility] Oxygen 97 % 97 % [facility] [place] saturation in Medical Arterial blood Center by Pulse oximetry Heart rate 79 /min 79 /min [facility] Diastolic blood 106 mm[Hg] 106 mm[Hg] [facility] [place] Systolic blood 179 mm[Hg] 179 mm[Hg] [facility] Body temperature 37.138641 Kaylie 37.286885 Kaylie [facility] Respiratory rate 18 /min 18 /min [facility] Oxygen 96 % 96 % [facility] [place] saturation in Medical Arterial blood Center by Pulse oximetry Heart rate 81 /min 81 /min [facility] Diastolic blood 82 mm[Hg] 82 mm[Hg] [facility] Systolic blood 151 mm[Hg] 151 mm[Hg] [facility] Body temperature 36.448377 Kaylie 36.912141 Kaylie [facility] Respiratory rate 18 /min 18 /min [facility] Heart rate 77 /min 77 /min [facility] Body temperature 37.201796 Kaylie 37.472879 Kaylie [facility] Respiratory rate 18 /min 18 /min [facility] Oxygen 97 % 97 % [facility] saturation in Medical Arterial blood Center by Pulse oximetry Heart rate 80 /min 80 /min [facility] Diastolic blood 89 mm[Hg] 89 mm[Hg] [facility] pressure [facility] Center Systolic blood 153 mm[Hg] 153 mm[Hg] [facility] Oxygen 97 % 97 % [facility] [place] saturation in Medical Arterial blood Center by Pulse oximetry Diastolic blood 90 mm[Hg] 90 mm[Hg] [facility] pressure [facility] Center Systolic blood 177 mm[Hg] 177 mm[Hg] [facility] Body temperature 36.708623 Kaylie 36.180861 Kaylie [facility] Respiratory rate 17 /min 17 /min [facility] Oxygen 95 % 95 % [place] saturation in Medical Arterial blood Center by Pulse oximetry Heart rate 67 /min 67 /min [facility] Diastolic blood 98 mm[Hg] 98 mm[Hg] [facility] pressure [facility] Center Systolic blood 160 mm[Hg] 160 mm[Hg] [facility] Body weight 100.203726 kg 100.375974 kg [facility] Body temperature 36.539570 Kaylie 36.936652 Kaylie [facility] Respiratory rate 19 /min 19 /min [facility] Oxygen 98 % 98 % [facility] saturation in Medical Arterial blood Center by Pulse oximetry Heart rate 92 /min 92 /min [facility] Body height 177.000566 cm 177.835308 cm [facility] Diastolic blood 103 mm[Hg] 103 mm[Hg] [facility] pressure [facility] Center Systolic blood 166 mm[Hg] 166 mm[Hg] [facility] Body mass index 31.6 kg/m2 31.6 kg/m2 [facility] (BMI) [Ratio] Medical Center Body temperature 36.134545 Kaylie 36.634632 Kaylie [facility] Respiratory rate 18 /min 18 /min [facility] Oxygen 96 % 96 % [place] saturation in Medical Arterial blood Center by Pulse oximetry Heart rate 90 /min 90 /min [facility] Diastolic blood 74 mm[Hg] 74 mm[Hg] [facility] pressure [facility] Center Systolic blood 145 mm[Hg] 145 mm[Hg] [facility] Body temperature 36.753981 Kaylie 36.865701 Kaylie [facility] Respiratory rate 18 /min 18 /min [facility] Oxygen 97 % 97 % [facility] saturation in Medical Arterial blood Center by Pulse oximetry Heart rate 92 /min 92 /min [facility] Diastolic blood 78 mm[Hg] 78 mm[Hg] [facility] pressure [facility] Center Systolic blood 147 mm[Hg] 147 mm[Hg] [facility] Body temperature 37.746400 Kaylie 37.882935 Kaylie [facility] Respiratory rate 19 /min 19 /min [facility] Oxygen 96 % 96 % [facility] saturation in Medical Arterial blood Center by Pulse oximetry Heart rate 90 /min 90 /min [facility] Diastolic blood 74 mm[Hg] 74 mm[Hg] [facility] pressure [facility] Center Systolic blood 132 mm[Hg] 132 mm[Hg] [facility] [place] Body temperature 36.712255 Kaylie 36.627493 Kaylie [facility] Respiratory rate 18 /min 18 /min [facility] Oxygen 92 % 92 % [facility] saturation in Medical Arterial blood Center by Pulse oximetry Heart rate 93 /min 93 /min [facility] Diastolic blood 78 mm[Hg] 78 mm[Hg] [facility] Systolic blood 130 mm[Hg] 130 mm[Hg] [facility] [place] Body temperature 36.661008 Kaylie 36.919595 Kaylie [facility] Respiratory rate 17 /min 17 /min [facility] Oxygen 97 % 97 % [facility] saturation in Medical Arterial blood Center by Pulse oximetry Heart rate 75 /min 75 /min [facility] Diastolic blood 65 mm[Hg] 65 mm[Hg] [facility] Systolic blood 139 mm[Hg] 139 mm[Hg] [facility] Body weight 104.795646 kg 104.107793 kg [facility] [place] Body temperature 36.327164 Kaylie 36.543100 Kaylie [facility] Respiratory rate 17 /min 17 /min [facility] Oxygen 92 % 92 % [facility] [place] saturation in Medical Arterial blood Center by Pulse oximetry Heart rate 88 /min 88 /min [facility] Body height 177.986565 cm 177.481930 cm [facility] Diastolic blood 74 mm[Hg] 74 mm[Hg] [facility] Systolic blood 126 mm[Hg] 126 mm[Hg] [facility] Body mass index 33.0 kg/m2 33.0 kg/m2 [facility] (BMI) [Ratio] Medical Center Body temperature 37.126652 Kaylie 37.489091 Kaylie [facility] Respiratory rate 18 /min 18 /min [facility] Oxygen 96 % 96 % [facility] [place] saturation in Medical Arterial blood Center by Pulse oximetry Heart rate 93 /min 93 /min [facility] Diastolic blood 78 mm[Hg] 78 mm[Hg] [facility] Systolic blood 138 mm[Hg] 138 mm[Hg] [facility] Body temperature 36.076133 Kaylie 36.927037 Kaylie [facility] Respiratory rate 18 /min 18 /min [facility] Oxygen 97 % 97 % [facility] saturation in Medical Arterial blood Center by Pulse oximetry Heart rate 89 /min 89 /min [facility] Diastolic blood 86 mm[Hg] 86 mm[Hg] [facility] Systolic blood 142 mm[Hg] 142 mm[Hg] [facility] Body temperature 36.950505 Kaylie 36.642476 Kaylie [facility] Respiratory rate 18 /min 18 /min [facility] Oxygen 98 % 98 % [facility] saturation in Medical Arterial blood Center by Pulse oximetry Heart rate 75 /min 75 /min [facility] Diastolic blood 65 mm[Hg] 65 mm[Hg] [facility] Systolic blood 131 mm[Hg] 131 mm[Hg] [facility] Body temperature 36.417644 Kaylie 36.982810 Kaylie [facility] Respiratory rate 17 /min 17 /min [facility] Oxygen 97 % 97 % [facility] saturation in Medical Arterial blood Center by Pulse oximetry Heart rate 81 /min 81 /min [facility] Diastolic blood 73 mm[Hg] 73 mm[Hg] [facility] Systolic blood 139 mm[Hg] 139 mm[Hg] [facility] Body temperature 36.256252 Kaylie 36.000769 Kaylie [facility] Respiratory rate 18 /min 18 /min [facility] Oxygen 98 % 98 % [facility] saturation in Medical Arterial blood Center by Pulse oximetry Heart rate 88 /min 88 /min [facility] Diastolic blood 72 mm[Hg] 72 mm[Hg] [facility] pressure [facility] Center Systolic blood 148 mm[Hg] 148 mm[Hg] [facility] Body temperature 36.965844 Kaylie 36.223923 Kaylie [facility] Respiratory rate 17 /min 17 /min [facility] Oxygen 95 % 95 % [facility] saturation in Medical Arterial blood Center by Pulse oximetry Heart rate 84 /min 84 /min [facility] Diastolic blood 83 mm[Hg] 83 mm[Hg] [facility] [place] Systolic blood 138 mm[Hg] 138 mm[Hg] [facility] Body temperature 37.075479 Kaylie 37.378840 Kaylie [facility] Respiratory rate 18 /min 18 /min [facility] Oxygen 95 % 95 % [facility] saturation in Medical Arterial blood [facility] oxim[facility] Heart rate 88 /min 88 /min [facility] Diastolic blood 78 mm[Hg] 78 mm[Hg] [facility] [place] Systolic blood 143 mm[Hg] 143 mm[Hg] [facility] Body temperature 36.946858 Kaylie 36.523995 Kaylie [facility] Respiratory rate 18 /min 18 /min [facility] Oxygen 95 % 95 % [place] saturation in Medical Arterial blood [facility] by Pulse oximetry Heart rate 87 /min 87 /min [facility] Diastolic blood 98 mm[Hg] 98 mm[Hg] [facility] Systolic blood 122 mm[Hg] 122 mm[Hg] [facility] Body temperature 36.989733 Kaylie 36.295709 Kaylie [facility] Respiratory rate 16 /min 16 /min [facility] Oxygen 95 % 95 % [place] saturation in Medical Arterial blood [facility] by Pulse oximetry Heart rate 68 /min 68 /min [facility] Diastolic blood 60 mm[Hg] 60 mm[Hg] [facility] [place] Systolic blood 118 mm[Hg] 118 mm[Hg] [facility] [place] Body temperature 37.338912 Kaylie 37.970885 Kaylie [facility] Respiratory rate 20 /min 20 /min [facility] Oxygen 97 % 97 % [place] saturation in Medical Arterial blood [facility] by Pulse oximetry Heart rate 96 /min 96 /min [facility] Diastolic blood 95 mm[Hg] 95 mm[Hg] [facility] pressure [facility] Center Systolic blood 167 mm[Hg] 167 mm[Hg] [facility] Body temperature 36.392999 Kaylie 36.241918 Kaylie [facility] Respiratory rate 20 /min 20 /min [facility] Oxygen 96 % 96 % [place] saturation in Medical Arterial blood [facility] by Pulse oximetry Heart rate 86 /min 86 /min [facility] Diastolic blood 99 mm[Hg] 99 mm[Hg] [facility] pressure [facility] Center Systolic blood 168 mm[Hg] 168 mm[Hg] [facility] Body weight 109.309949 kg 109.944905 kg [facility] Body temperature 36.827770 Kaylie 36.367795 Kaylie [facility] Respiratory rate 20 /min 20 /min [facility] Oxygen 97 % 97 % [place] saturation in Medical Arterial blood [facility] by Pulse oximetry Heart rate 88 /min 88 /min [facility] Body height 175.694531 cm 175.634855 cm [facility] Diastolic blood 104 mm[Hg] 104 mm[Hg] [facility] pressure [facility] Center Systolic blood 165 mm[Hg] 165 mm[Hg] [facility] Body mass index 35.5 kg/m2 35.5 kg/m2 [facility] (BMI) [Ratio] [facility] Center Body temperature 36.562583 Kaylie 36.600943 Kaylie [facility] Respiratory rate 20 /min 20 /min [facility] Oxygen 94 % 94 % [place] saturation in Medical Arterial blood [facility] by Pulse oximetry Heart rate 89 /min 89 /min [facility] Diastolic blood 81 mm[Hg] 81 mm[Hg] [facility] pressure [facility] Center Systolic blood 137 mm[Hg] 137 mm[Hg] [facility] Body temperature 36.558797 Kaylie 36.632248 Kaylie [facility] Respiratory rate 17 /min 17 /min [facility] Oxygen 98 % 98 % [place] saturation in Medical Arterial blood [facility] by Pulse oximetry Heart rate 74 /min 74 /min [facility] Diastolic blood 73 mm[Hg] 73 mm[Hg] [facility] pressure [facility] Center Systolic blood 135 mm[Hg] 135 mm[Hg] [facility] Body temperature 37.615890 Kaylie 37.716610 Kaylie [facility] Respiratory rate 18 /min 18 /min [facility] Oxygen 99 % 99 % [place] saturation in Medical Arterial blood [facility] by Pulse oximetry Heart rate 93 /min 93 /min [facility] Diastolic blood 77 mm[Hg] 77 mm[Hg] [facility] Systolic blood 141 mm[Hg] 141 mm[Hg] [facility] Body temperature 37.852035 Kaylie 37.200915 Kaylie [facility] Respiratory rate 18 /min 18 /min [facility] Oxygen 99 % 99 % [place] saturation in Medical Arterial blood [facility] by Pulse oximetry Heart rate 73 /min 73 /min [facility] Diastolic blood 85 mm[Hg] 85 mm[Hg] [facility] [place] Systolic blood 128 mm[Hg] 128 mm[Hg] [facility] Body temperature 36.211467 Kaylie 36.869725 Kaylie [facility] Respiratory rate 17 /min 17 /min [facility] Oxygen 99 % 99 % [place] saturation in Medical Arterial blood [facility] by Pulse oximetry Heart rate 85 /min 85 /min [facility] Diastolic blood 78 mm[Hg] 78 mm[Hg] [facility] Systolic blood 132 mm[Hg] 132 mm[Hg] [facility] Body temperature 36.194576 Kaylie 36.642197 Kaylie [facility] Respiratory rate 18 /min 18 /min [facility] Oxygen 98 % 98 % [place] saturation in Medical Arterial blood [facility] by Pulse oximetry Heart rate 82 /min 82 /min [facility] Diastolic blood 83 mm[Hg] 83 mm[Hg] [facility] Systolic blood 125 mm[Hg] 125 mm[Hg] [facility] Body temperature 37.973726 Kaylie 37.278774 Kaylie [facility] Respiratory rate 18 /min 18 /min [facility] Oxygen 97 % 97 % [place] saturation in Medical Arterial blood [facility] by Pulse oximetry Heart rate 101 /min 101 /min [facility] Diastolic blood 77 mm[Hg] 77 mm[Hg] [facility] pressure [facility] Center Systolic blood 137 mm[Hg] 137 mm[Hg] [facility] Heart rate 88 /min 88 /min [facility] Diastolic blood 78 mm[Hg] 78 mm[Hg] [facility] pressure [facility] Center Systolic blood 144 mm[Hg] 144 mm[Hg] [facility] Body temperature 36.329409 Kaylie 36.330777 Kaylie [facility] Respiratory rate 18 /min 18 /min [facility] Oxygen 97 % 97 % [place] saturation in Medical Arterial blood [facility] Pulse oximetry Body temperature 37.073869 Kaylie 37.534094 Kaylie [facility] Respiratory rate 18 /min 18 /min [facility] Oxygen 95 % 95 % [place] saturation in Medical Arterial blood [facility] by Pulse oximetry Heart rate 90 /min 90 /min [facility] Diastolic blood 92 mm[Hg] 92 mm[Hg] [facility] Systolic blood 153 mm[Hg] 153 mm[Hg] [facility] [place] Body temperature 37.006231 Kaylie 37.283029 Kaylie [facility] Respiratory rate 18 /min 18 /min [facility] Oxygen 95 % 95 % [place] saturation in Medical Arterial blood [facility] by Pulse oximetry Heart rate 96 /min 96 /min [facility] Diastolic blood 75 mm[Hg] 75 mm[Hg] [facility] pressure [facility] Center Systolic blood 127 mm[Hg] 127 mm[Hg] [facility] Body temperature 36.200610 Kaylie 36.189682 Kaylie [facility] Respiratory rate 18 /min 18 /min [facility] Oxygen 96 % 96 % [place] saturation in Medical Arterial blood [facility] by Pulse oximetry Heart rate 96 /min 96 /min [facility] Diastolic blood 98 mm[Hg] 98 mm[Hg] [facility] Systolic blood 151 mm[Hg] 151 mm[Hg] [facility] Body temperature 36.140964 Kaylie 36.077739 Kaylie [facility] Respiratory rate 17 /min 17 /min [facility] Oxygen 96 % 96 % [place] saturation in Medical Arterial blood [facility] by Pulse oximetry Heart rate 94 /min 94 /min [facility] Diastolic blood 74 mm[Hg] 74 mm[Hg] [facility] pressure [facility] Center Systolic blood 138 mm[Hg] 138 mm[Hg] [facility] Respiratory rate 16 /min 16 /min [facility] Oxygen 98 % 98 % [place] saturation in Medical Arterial blood [facility] by Pulse oximetry Heart rate 91 /min 91 /min [facility] Diastolic blood 70 mm[Hg] 70 mm[Hg] [facility] pressure [facility] Center Systolic blood 130 mm[Hg] 130 mm[Hg] [facility] Body temperature 36.180044 Kaylie 36.416681 Kaylie [facility] Respiratory rate 16 /min 16 /min [facility] Oxygen 97 % 97 % [place] saturation in Medical Arterial blood [facility] by Pulse oximetry Heart rate 91 /min 91 /min [facility] Diastolic blood 61 mm[Hg] 61 mm[Hg] [facility] Systolic blood 109 mm[Hg] 109 mm[Hg] [facility] Body temperature 36.288930 Kaylie 36.398532 Kaylie [facility] Respiratory rate 17 /min 17 /min [facility] Oxygen 95 % 95 % [place] saturation in Medical Arterial blood [facility] by Pulse oximetry Heart rate 96 /min 96 /min [facility] Diastolic blood 50 mm[Hg] 50 mm[Hg] [facility] Systolic blood 110 mm[Hg] 110 mm[Hg] [facility] Body temperature 36.855323 Kaylie 36.902138 Kaylie [facility] Respiratory rate 18 /min 18 /min [facility] Oxygen 97 % 97 % [place] saturation in Medical Arterial blood [facility] by Pulse oximetry Heart rate 82 /min 82 /min [facility] Diastolic blood 70 mm[Hg] 70 mm[Hg] [facility] Systolic blood 120 mm[Hg] 120 mm[Hg] [facility] Body temperature 36.190608 Kaylie 36.820634 Kaylie [facility] Respiratory rate 17 /min 17 /min [facility] Oxygen 98 % 98 % [place] saturation in Medical Arterial blood [facility] by Pulse oximetry Heart rate 76 /min 76 /min [facility] Diastolic blood 67 mm[Hg] 67 mm[Hg] [facility] pressure [facility] Center Systolic blood 154 mm[Hg] 154 mm[Hg] [facility] Body temperature 36.260823 Kaylie 36.567588 Kaylie [facility] Respiratory rate 18 /min 18 /min [facility] Heart rate 90 /min 90 /min [facility] Diastolic blood 71 mm[Hg] 71 mm[Hg] [facility] pressure [facility] Center Systolic blood 140 mm[Hg] 140 mm[Hg] [facility] [place] Body temperature 36.426909 Kaylie 36.825528 Kaylie [facility] Respiratory rate 17 /min 17 /min [facility] Oxygen 95 % 95 % [place] saturation in Medical Arterial blood [facility] by Pulse oximetry Heart rate 90 /min 90 /min [facility] Diastolic blood 77 mm[Hg] 77 mm[Hg] [facility] [place] Systolic blood 137 mm[Hg] 137 mm[Hg] [facility] [place] Body temperature 36.493260 Kaylie 36.165033 Kaylie [facility] Respiratory rate 18 /min 18 /min [facility] Oxygen 98 % 98 % [place] saturation in Medical Arterial blood [facility] by Pulse oximetry Heart rate 76 /min 76 /min [facility] Diastolic blood 80 mm[Hg] 80 mm[Hg] [facility] Systolic blood 124 mm[Hg] 124 mm[Hg] [facility] Body temperature 36.319904 Kaylie 36.632251 Kaylie [facility] Respiratory rate 18 /min 18 /min [facility] Oxygen 99 % 99 % [place] saturation in Medical Arterial blood [facility] by Pulse oximetry Heart rate 90 /min 90 /min [facility] Diastolic blood 77 mm[Hg] 77 mm[Hg] [facility] Systolic blood 149 mm[Hg] 149 mm[Hg] [facility] Body temperature 36.546623 Kaylie 36.478361 Kaylie [facility] Respiratory rate 19 /min 19 /min [facility] Oxygen 99 % 99 % [place] saturation in Medical Arterial blood [facility] by Pulse oximetry Heart rate 88 /min 88 /min [facility] Diastolic blood 66 mm[Hg] 66 mm[Hg] [facility] pressure [facility] Center Systolic blood 154 mm[Hg] 154 mm[Hg] [facility] Body temperature 36.843671 Kaylie 36.387915 Kaylie [facility] Respiratory rate 18 /min 18 /min [facility] Oxygen 96 % 96 % [place] saturation in Medical Arterial blood [facility] by Pulse oximetry Heart rate 93 /min 93 /min [facility] Diastolic blood 76 mm[Hg] 76 mm[Hg] [facility] pressure [facility] Center Systolic blood 144 mm[Hg] 144 mm[Hg] [facility] [place] Body temperature 37.601250 Kaylie 37.833455 Kaylie [facility] Respiratory rate 19 /min 19 /min [facility] Oxygen 95 % 95 % [place] saturation in Medical Arterial blood [facility] by Pulse oximetry Heart rate 90 /min 90 /min [facility] Diastolic blood 59 mm[Hg] 59 mm[Hg] [facility] Systolic blood 133 mm[Hg] 133 mm[Hg] [facility] [place] Body temperature 36.776987 Kaylie 36.434599 Kaylie [facility] Respiratory rate 18 /min 18 /min [facility] Oxygen 97 % 97 % [place] saturation in Medical Arterial blood [facility] by Pulse oximetry Heart rate 88 /min 88 /min [facility] Diastolic blood 67 mm[Hg] 67 mm[Hg] [facility] Systolic blood 148 mm[Hg] 148 mm[Hg] [facility] [place] Body temperature 36.293164 Kaylie 36.367038 Kaylie [facility] Respiratory rate 20 /min 20 /min [facility] Oxygen 94 % 94 % [place] saturation in Medical Arterial blood [facility] by Pulse oximetry Heart rate 88 /min 88 /min [facility] Diastolic blood 66 mm[Hg] 66 mm[Hg] [facility] pressure [facility] Center Systolic blood 135 mm[Hg] 135 mm[Hg] [facility] Body temperature 37.902188 Kaylie 37.886597 Kaylie [facility] Respiratory rate 20 /min 20 /min [facility] Oxygen 94 % 94 % [place] saturation in Medical Arterial blood [facility] by Pulse oximetry Heart rate 84 /min 84 /min [facility] Diastolic blood 69 mm[Hg] 69 mm[Hg] [facility] pressure [facility] Center Systolic blood 130 mm[Hg] 130 mm[Hg] [facility] Body weight 90.204235 kg 90.498876 kg [facility] Measured [facility] Body height 175.156943 cm 175.617092 cm [facility] Body mass index 29.5 kg/m2 29.5 kg/m2 [facility] (BMI) [Ratio] [facility] Center Body temperature 36.201268 Kaylie 36.357498 Kaylie [facility] Respiratory rate 17 /min 17 /min [facility] Oxygen 98 % 98 % [place] saturation in Medical Arterial blood [facility] by Pulse oximetry Heart rate 71 /min 71 /min [facility] Diastolic blood 76 mm[Hg] 76 mm[Hg] [facility] Systolic blood 136 mm[Hg] 136 mm[Hg] [facility] Body temperature 36.210525 Kaylie 36.690209 Kaylie [facility] Respiratory rate 18 /min 18 /min [facility] Oxygen 97 % 97 % [place] saturation in Medical Arterial blood [facility] by Pulse oximetry Heart rate 76 /min 76 /min [facility] Diastolic blood 76 mm[Hg] 76 mm[Hg] [facility] Systolic blood 124 mm[Hg] 124 mm[Hg] [facility] Body temperature 36.570390 Kaylie 36.633364 Kaylie [facility] Respiratory rate 19 /min 19 /min [facility] Oxygen 97 % 97 % [place] saturation in Medical Arterial blood [facility] by Pulse oximetry Heart rate 97 /min 97 /min [facility] Diastolic blood 73 mm[Hg] 73 mm[Hg] [facility] pressure [facility] Center Systolic blood 118 mm[Hg] 118 mm[Hg] [facility] Body weight 104.771130 kg 104.605941 kg [facility] Body temperature 36.568363 Kaylie 36.551524 Kaylie [facility] Respiratory rate 17 /min 17 /min [facility] Oxygen 96 % 96 % [place] saturation in Medical Arterial blood Center by Pulse oximetry Heart rate 95 /min 95 /min [facility] Body height 177.426371 cm 177.648645 cm [facility] Diastolic blood 81 mm[Hg] 81 mm[Hg] [facility] pressure [facility] Center Systolic blood 150 mm[Hg] 150 mm[Hg] [facility] Body mass index 33.0 kg/m2 33.0 kg/m2 [facility] (BMI) [Ratio] [facility] Center Body temperature 36.030597 Kaylie 36.048589 Kaylie [facility] Respiratory rate 18 /min 18 /min [facility] Oxygen 97 % 97 % [place] saturation in Medical Arterial blood Center by Pulse oximetry Heart rate 89 /min 89 /min [facility] Diastolic blood 75 mm[Hg] 75 mm[Hg] [facility] pressure [facility] Center Systolic blood 144 mm[Hg] 144 mm[Hg] [facility] [place] Body temperature 36.123217 Kaylie 36.486706 Kaylie [facility] Respiratory rate 18 /min 18 /min [facility] Oxygen 97 % 97 % [place] saturation in Medical Arterial blood Center by Pulse oximetry Heart rate 71 /min 71 /min [facility] Diastolic blood 96 mm[Hg] 96 mm[Hg] [facility] pressure [facility] Center Systolic blood 136 mm[Hg] 136 mm[Hg] [facility] Heart rate 84 /min 84 /min [facility] Diastolic blood 83 mm[Hg] 83 mm[Hg] [facility] pressure [facility] Center Systolic blood 132 mm[Hg] 132 mm[Hg] [facility] Respiratory rate 18 /min 18 /min [facility] Oxygen 97 % 97 % [place] saturation in Medical Arterial blood Center by Pulse oximetry Body temperature 36.469538 Kaylie 36.502890 Kaylie [facility] Respiratory rate 18 /min 18 /min [facility] Oxygen 97 % 97 % [place] saturation in Medical Arterial blood Center by Pulse oximetry Heart rate 82 /min 82 /min [facility] Diastolic blood 82 mm[Hg] 82 mm[Hg] [facility] Systolic blood 138 mm[Hg] 138 mm[Hg] [facility] Body temperature 36.545751 Kaylie 36.244142 Kaylie [facility] Respiratory rate 18 /min 18 /min [facility] Oxygen 96 % 96 % [place] saturation in Medical Arterial blood Center by Pulse oximetry Heart rate 95 /min 95 /min [facility] Diastolic blood 84 mm[Hg] 84 mm[Hg] [facility] pressure [facility] Center Systolic blood 155 mm[Hg] 155 mm[Hg] [facility] Body temperature 36.126140 Kaylie 36.598490 Kaylie [facility] Respiratory rate 21 /min 21 /min [facility] Oxygen 98 % 98 % [facility] saturation in Medical Arterial blood Center by Pulse oximetry Heart rate 97 /min 97 /min [facility] Diastolic blood 79 mm[Hg] 79 mm[Hg] [facility] Systolic blood 162 mm[Hg] 162 mm[Hg] [facility] Body weight 90.819942 kg 90.504164 kg [facility] [place] Body temperature 36.751958 Kaylie 36.001071 Kaylie [facility] Respiratory rate 18 /min 18 /min [facility] Oxygen 96 % 96 % [facility] saturation in Medical Arterial blood Center by Pulse oximetry Heart rate 92 /min 92 /min [facility] Body height 177.326740 cm 177.988199 cm [facility] Diastolic blood 85 mm[Hg] 85 mm[Hg] [facility] Systolic blood 141 mm[Hg] 141 mm[Hg] [facility] Body mass index 28.6 kg/m2 28.6 kg/m2 [facility] (BMI) [Ratio] Medical Center Body temperature 36.115077 Kaylie 36.660663 Kaylie [facility] Respiratory rate 20 /min 20 /min [facility] Oxygen 94 % 94 % [place] saturation in Medical Arterial blood Center by Pulse oximetry Heart rate 96 /min 96 /min [facility] Diastolic blood 85 mm[Hg] 85 mm[Hg] [facility] Systolic blood 125 mm[Hg] 125 mm[Hg] [facility] Body temperature 36.069511 Kaylie 36.328533 Kaylie [facility] Respiratory rate 19 /min 19 /min [facility] Oxygen 93 % 93 % [place] saturation in Medical Arterial blood Center by Pulse oximetry Heart rate 91 /min 91 /min [facility] Diastolic blood 74 mm[Hg] 74 mm[Hg] [facility] Systolic blood 132 mm[Hg] 132 mm[Hg] [facility] [place] Body weight 95.662558 kg 95.865055 kg [facility] Measured [facility] Body temperature 36.545563 Kaylie 36.351162 Kaylie [facility] Respiratory rate 17 /min 17 /min [facility] Oxygen 95 % 95 % [place] saturation in Medical Arterial blood Center by Pulse oximetry Heart rate 86 /min 86 /min [facility] Body height 177.685313 cm 177.029516 cm [facility] Diastolic blood 72 mm[Hg] 72 mm[Hg] [facility] Systolic blood 123 mm[Hg] 123 mm[Hg] [facility] Body mass index 30.1 kg/m2 30.1 kg/m2 [facility] (BMI) [Ratio] Medical Center Body temperature 36.023287 Kaylie 36.104650 Kaylie [facility] Respiratory rate 16 /min 16 /min [facility] Oxygen 93 % 93 % [place] saturation in Medical Arterial blood Center by Pulse oximetry Heart rate 103 /min 103 /min [facility] Diastolic blood 67 mm[Hg] 67 mm[Hg] [facility] Systolic blood 123 mm[Hg] 123 mm[Hg] [facility] Body temperature 36.411599 Kaylie 36.964053 Kaylie [facility] Respiratory rate 18 /min 18 /min [facility] Oxygen 98 % 98 % [place] saturation in Medical Arterial blood Center by Pulse oximetry Heart rate 76 /min 76 /min [facility] Diastolic blood 77 mm[Hg] 77 mm[Hg] [facility] Systolic blood 120 mm[Hg] 120 mm[Hg] [facility] Body temperature 36.162154 Kaylie 36.734526 Kaylie [facility] Respiratory rate 18 /min 18 /min [facility] Oxygen 98 % 98 % [place] saturation in Medical Arterial blood Center by Pulse oximetry Heart rate 76 /min 76 /min [facility] Diastolic blood 76 mm[Hg] 76 mm[Hg] [facility] pressure [facility] Center Systolic blood 122 mm[Hg] 122 mm[Hg] [facility] Body temperature 35.229427 Kaylie 35.028249 Kaylie [facility] Respiratory rate 17 /min 17 /min [facility] Oxygen 97 % 97 % [place] saturation in Medical Arterial blood Center by Pulse oximetry Heart rate 86 /min 86 /min [facility] Diastolic blood 69 mm[Hg] 69 mm[Hg] [facility] pressure [facility] Center Systolic blood 121 mm[Hg] 121 mm[Hg] [facility] [facility] Body temperature 37.817918 Kaylie 37.768792 Kaylie [facility] Respiratory rate 16 /min 16 /min [facility] Oxygen 98 % 98 % [facility] [place] saturation in Medical Arterial blood Center by Pulse oximetry Heart rate 80 /min 80 /min [facility] Diastolic blood 65 mm[Hg] 65 mm[Hg] [facility] pressure Medical Center Systolic blood 116 mm[Hg] 116 mm[Hg] [facility] Respiratory rate 16 /min 16 /min [facility] Oxygen 97 % 97 % [place] saturation in Medical Arterial blood Center by Pulse oximetry Heart rate 84 /min 84 /min [facility] Diastolic blood 69 mm[Hg] 69 mm[Hg] [facility] pressure [facility] Center Systolic blood 115 mm[Hg] 115 mm[Hg] [facility] Body temperature 37.767369 Kaylie 37.108029 Kaylie [facility] Oxygen 98 % 98 % [place] saturation in Medical Arterial blood Center by Pulse oximetry Heart rate 90 /min 90 /min [facility] Diastolic blood 72 mm[Hg] 72 mm[Hg] [facility] pressure Medical Center Systolic blood 106 mm[Hg] 106 mm[Hg] [facility] Body temperature 36.234613 Kaylie 36.687158 Kaylie [facility] Respiratory rate 19 /min 19 /min [facility] Oxygen 98 % 98 % [place] saturation in Medical Arterial blood Center by Pulse oximetry Heart rate 86 /min 86 /min [facility] Diastolic blood 55 mm[Hg] 55 mm[Hg] [facility] pressure Medical Center Systolic blood 91 mm[Hg] 91 mm[Hg] [facility] Body temperature 37.878364 Kaylie 37.293944 Kaylie [facility] Respiratory rate 18 /min 18 /min [facility] Oxygen 95 % 95 % [place] saturation in Medical Arterial blood Center by Pulse oximetry Heart rate 95 /min 95 /min [facility] Diastolic blood 79 mm[Hg] 79 mm[Hg] [facility] pressure Medical Center Systolic blood 122 mm[Hg] 122 mm[Hg] [facility] Body weight 105.796895 kg 105.099494 kg [facility] Body temperature 37.945989 Kaylie 37.684473 Kaylie [facility] Respiratory rate 20 /min 20 /min [facility] Oxygen 94 % 94 % [place] saturation in Medical Arterial blood Center by Pulse oximetry Heart rate 83 /min 83 /min [facility] Body height 175.810715 cm 175.073377 cm [facility] Diastolic blood 85 mm[Hg] 85 mm[Hg] [facility] pressure Medical Center Systolic blood 134 mm[Hg] 134 mm[Hg] [facility] Body mass index 34.2 kg/m2 34.2 kg/m2 [facility] (BMI) [Ratio] Medical Center Body weight 81.652701 kg 81.103212 kg [facility]asured [facility] Body temperature 36.332757 Kaylie 36.165218 Kaylie [facility] Respiratory rate 18 /min 18 /min [facility] Oxygen 96 % 96 % [facility] [place] saturation in Medical Arterial blood Center by Pulse oximetry Heart rate 86 /min 86 /min [facility] Body height 172.913010 cm 172.656554 cm [facility] Diastolic blood 85 mm[Hg] 85 mm[Hg] [facility] Systolic blood 138 mm[Hg] 138 mm[Hg] [facility] Body mass index 27.3 kg/m2 27.3 kg/m2 [facility] (BMI) [Ratio] Medical Center Body temperature 36.575721 Kaylie 36.083320 Kaylie [facility] Respiratory rate 17 /min 17 /min [facility] Oxygen 98 % 98 % [place] saturation in Medical Arterial blood Center by Pulse oximetry Heart rate 81 /min 81 /min [facility] Diastolic blood 71 mm[Hg] 71 mm[Hg] [facility] pressure Medical Center Systolic blood 128 mm[Hg] 128 mm[Hg] [facility] Body temperature 36.998632 Kaylie 36.243428 Kaylie [facility] Respiratory rate 17 /min 17 /min [facility] Oxygen 95 % 95 % [place] saturation in Medical Arterial blood Center by Pulse oximetry Heart rate 101 /min 101 /min [facility] Diastolic blood 78 mm[Hg] 78 mm[Hg] [facility] Systolic blood 128 mm[Hg] 128 mm[Hg] [facility] Body temperature 41.203055 Kaylie 41.377139 Kaylie [facility] Respiratory rate 18 /min 18 /min [facility] Oxygen 92 % 92 % [facility] [place] saturation in Medical Arterial blood Center by Pulse oximetry Heart rate 117 /min 117 /min [facility] Diastolic blood 77 mm[Hg] 77 mm[Hg] [facility] Center Systolic blood 130 mm[Hg] 130 mm[Hg] [facility] Body temperature 37.353781 Kaylie 37.957848 Kaylie [facility] Respiratory rate 18 /min 18 /min [facility] Oxygen 98 % 98 % [place] saturation in Medical Arterial blood Center by Pulse oximetry Heart rate 89 /min 89 /min [facility] Diastolic blood 85 mm[Hg] 85 mm[Hg] [facility] Systolic blood 142 mm[Hg] 142 mm[Hg] [facility] Body weight 110.063846 kg 110.229187 kg [facility] Body temperature 36.119651 Kaylie 36.938837 Kaylie [facility] Respiratory rate 18 /min 18 /min [facility] Oxygen 98 % 98 % [place] saturation in Medical Arterial blood Center by Pulse oximetry Heart rate 88 /min 88 /min [facility] Body height 182.468945 cm 182.457594 cm [facility] Diastolic blood 98 mm[Hg] 98 mm[Hg] [facility] pressure Medical Center Systolic blood 138 mm[Hg] 138 mm[Hg] [facility] Body mass index 32.8 kg/m2 32.8 kg/m2 [facility] (BMI) [Ratio] Medical Center Body temperature 36.056490 Kaylie 36.574000 Kaylie [facility] Respiratory rate 17 /min 17 /min [facility] Oxygen 95 % 95 % [place] saturation in Medical Arterial blood Center by Pulse oximetry Heart rate 96 /min 96 /min [facility] Diastolic blood 74 mm[Hg] 74 mm[Hg] [facility] Systolic blood 126 mm[Hg] 126 mm[Hg] [facility] Body temperature 36.803634 Kaylie 36.552782 Kaylie [facility] Respiratory rate 18 /min 18 /min [facility] Oxygen 100 % 100 % [facility] [place] saturation in Medical Arterial blood Center by Pulse oximetry Heart rate 85 /min 85 /min [facility] Diastolic blood 80 mm[Hg] 80 mm[Hg] [facility] Center Systolic blood 146 mm[Hg] 146 mm[Hg] [facility] Body temperature 36.206251 Kaylie 36.888953 Kaylie [facility] Respiratory rate 18 /min 18 /min [facility] Oxygen 98 % 98 % [place] saturation in Medical Arterial blood Center by Pulse oximetry Heart rate 80 /min 80 /min [facility] Diastolic blood 60 mm[Hg] 60 mm[Hg] [facility] Systolic blood 96 mm[Hg] 96 mm[Hg] [facility] Body temperature 36.304533 Kaylie 36.788627 Kaylie [facility] Respiratory rate 18 /min 18 /min [facility] Oxygen 98 % 98 % [place] saturation in Medical Arterial blood Center by Pulse oximetry Heart rate 83 /min 83 /min [facility] Diastolic blood 68 mm[Hg] 68 mm[Hg] [facility] Systolic blood 128 mm[Hg] 128 mm[Hg] [facility] Body mass index 29.8 kg/m2 29.8 kg/m2 [facility] (BMI) [Ratio] Medical Center Body weight 100.798484 kg 100.136128 kg [facility] Body temperature 36.535859 Kaylie 36.012959 Kaylie [facility] Respiratory rate 18 /min 18 /min [facility] Oxygen 98 % 98 % [place] saturation in Medical Arterial blood Center by Pulse oximetry Heart rate 84 /min 84 /min [facility] Body height 182.216950 cm 182.826138 cm [facility] Diastolic blood 88 mm[Hg] 88 mm[Hg] [facility] Systolic blood 148 mm[Hg] 148 mm[Hg] [facility] Body temperature 36.660204 Kaylie 36.041420 Kaylie [facility] Respiratory rate 17 /min 17 /min [facility] Oxygen 99 % 99 % [place] saturation in Medical Arterial blood Center by Pulse oximetry Heart rate 80 /min 80 /min [facility] Diastolic blood 79 mm[Hg] 79 mm[Hg] [facility] Center Systolic blood 126 mm[Hg] 126 mm[Hg] [facility] Body temperature 36.098717 Kaylie 36.757377 Kaylie [facility] Respiratory rate 17 /min 17 /min [facility] Oxygen 99 % 99 % [place] saturation in Medical Arterial blood Center by Pulse oximetry Heart rate 85 /min 85 /min [facility] Diastolic blood 74 mm[Hg] 74 mm[Hg] [facility] Systolic blood 136 mm[Hg] 136 mm[Hg] [facility] Body temperature 36.512662 Kaylie 36.485603 Kaylie [facility] Respiratory rate 18 /min 18 /min [facility] Oxygen 98 % 98 % [place] saturation in Medical Arterial blood Center by Pulse oximetry Heart rate 97 /min 97 /min [facility] Diastolic blood 70 mm[Hg] 70 mm[Hg] [facility] Systolic blood 126 mm[Hg] 126 mm[Hg] [facility] Body temperature 36.871282 Kaylie 36.763979 Kaylie [facility] Respiratory rate 19 /min 19 /min [facility] Oxygen 97 % 97 % [facility] saturation in Medical Arterial blood Center by Pulse oximetry Heart rate 79 /min 79 /min [facility] Diastolic blood 78 mm[Hg] 78 mm[Hg] [facility] Systolic blood 135 mm[Hg] 135 mm[Hg] [facility] Respiratory rate 18 /min 18 /min [facility] Oxygen 93 % 93 % [facility] saturation in Medical Arterial blood Center by Pulse oximetry Heart rate 89 /min 89 /min [facility] Body height 177.240910 cm 177.198115 cm [facility] Diastolic blood 75 mm[Hg] 75 mm[Hg] [facility] Systolic blood 104 mm[Hg] 104 mm[Hg] [facility] [place] Body mass index 37.9 kg/m2 37.9 kg/m2 [facility] (BMI) [Ratio] Medical Center Body weight 120.054219 kg 120.899074 kg [facility] Body temperature 36.679000 Kaylie 36.091781 Kaylie [facility] Body temperature 36.546215 Kaylie 36.554820 Kaylie [facility] Respiratory rate 17 /min 17 /min [facility] Oxygen 95 % 95 % [place] saturation in Medical Arterial blood Center by Pulse oximetry Heart rate 94 /min 94 /min [facility] Diastolic blood 62 mm[Hg] 62 mm[Hg] [facility] Systolic blood 115 mm[Hg] 115 mm[Hg] [facility] Body temperature 36.840521 Kaylie 36.521682 Kaylie [facility] Respiratory rate 18 /min 18 /min [facility] Oxygen 96 % 96 % [place] saturation in Medical Arterial blood Center by Pulse oximetry Heart rate 91 /min 91 /min [facility] Diastolic blood 77 mm[Hg] 77 mm[Hg] [facility] Systolic blood 131 mm[Hg] 131 mm[Hg] [facility] Body temperature 37.698471 Kaylie 37.169569 Kaylie [facility] Respiratory rate 19 /min 19 /min [facility] Oxygen 97 % 97 % [place] saturation in Medical Arterial blood Center by Pulse oximetry Heart rate 105 /min 105 /min [facility] Diastolic blood 74 mm[Hg] 74 mm[Hg] [facility] pressure Medical Center Systolic blood 122 mm[Hg] 122 mm[Hg] [facility] Body temperature 37.499008 Kaylie 37.153292 Kaylie [facility] Respiratory rate 20 /min 20 /min [facility] Oxygen 93 % 93 % [place] saturation in Medical Arterial blood Center by Pulse oximetry Heart rate 117 /min 117 /min [facility] Diastolic blood 58 mm[Hg] 58 mm[Hg] [facility] pressure Medical Center Systolic blood 108 mm[Hg] 108 mm[Hg] [facility] Body temperature 36.396324 Kaylie 36.369433 Kaylie [facility] Oxygen 90 % 90 % [place] saturation in Medical Arterial blood Center by Pulse oximetry Heart rate 112 /min 112 /min [facility] Diastolic blood 54 mm[Hg] 54 mm[Hg] [facility] Systolic blood 117 mm[Hg] 117 mm[Hg] [facility] Body weight 117.365595 kg 117.215537 kg [facility] Body temperature 36.314425 Kaylie 36.035928 Kayile [facility] Respiratory rate 18 /min 18 /min [facility] Oxygen 99 % 99 % [place] saturation in Medical Arterial blood Center by Pulse oximetry Heart rate 89 /min 89 /min [facility] Body height 182.893071 cm 182.815108 cm [facility] Diastolic blood 84 mm[Hg] 84 mm[Hg] [facility] Systolic blood 142 mm[Hg] 142 mm[Hg] [facility] Body mass index 35.2 kg/m2 35.2 kg/m2 [facility] (BMI) [Ratio] Medical Center Body temperature 36.925299 Kaylie 36.140245 Kaylie [facility] Respiratory rate 16 /min 16 /min [facility] Oxygen 98 % 98 % [place] saturation in Medical Arterial blood Center by Pulse oximetry Heart rate 79 /min 79 /min [facility] Diastolic blood 94 mm[Hg] 94 mm[Hg] [facility] pressure [facility] Center Systolic blood 149 mm[Hg] 149 mm[Hg] [facility] Body temperature 36.706557 Kaylie 36.344275 Kaylie [facility] Respiratory rate 16 /min 16 /min [facility] Oxygen 95 % 95 % [place] saturation in Medical Arterial blood Center by Pulse oximetry Heart rate 83 /min 83 /min [facility] Diastolic blood 74 mm[Hg] 74 mm[Hg] [facility] pressure Medical Center Systolic blood 156 mm[Hg] 156 mm[Hg] [facility] Body temperature 36.399371 Kaylie 36.159159 Kaylie [facility] Respiratory rate 20 /min 20 /min [facility] Oxygen 96 % 96 % [place] saturation in Medical Arterial blood Center by Pulse oximetry Heart rate 85 /min 85 /min [facility] Diastolic blood 83 mm[Hg] 83 mm[Hg] [facility] pressure Medical Center Systolic blood 142 mm[Hg] 142 mm[Hg] [facility] [place] Body temperature 36.482851 Kaylie 36.805664 Kaylie [facility] Respiratory rate 20 /min 20 /min [facility] Oxygen 97 % 97 % [place] saturation in Medical Arterial blood Center by Pulse oximetry Heart rate 107 /min 107 /min [facility] Diastolic blood 104 mm[Hg] 104 mm[Hg] [facility] Systolic blood 164 mm[Hg] 164 mm[Hg] [facility] Body temperature 36.608608 Kaylie 36.846271 Kaylie [facility] Respiratory rate 20 /min 20 /min [facility] Oxygen 97 % 97 % [place] saturation in Medical Arterial blood Center by Pulse oximetry Heart rate 90 /min 90 /min [facility] Diastolic blood 78 mm[Hg] 78 mm[Hg] [facility] Systolic blood 140 mm[Hg] 140 mm[Hg] [facility] Body weight 99.320184 kg 99.334112 kg [facility] Body temperature 36.284051 Kaylie 36.013113 Kaylie [facility] Respiratory rate 17 /min 17 /min [facility] Oxygen 95 % 95 % [place] saturation in Medical Arterial blood Center by Pulse oximetry Heart rate 92 /min 92 /min [facility] Body height 177.087328 cm 177.834024 cm [facility] Diastolic blood 78 mm[Hg] 78 mm[Hg] [facility] pressure [facility] Center Systolic blood 138 mm[Hg] 138 mm[Hg] [facility] Body mass index 31.5 kg/m2 31.5 kg/m2 [facility] (BMI) [Ratio] Medical Center Body temperature 36.738646 Kaylie 36.969867 Kaylie [facility] Respiratory rate 17 /min 17 /min [facility] Oxygen 98 % 98 % [place] saturation in Medical Arterial blood Center by Pulse oximetry Heart rate 75 /min 75 /min [facility] Diastolic blood 68 mm[Hg] 68 mm[Hg] [facility] pressure [facility] Systolic blood 129 mm[Hg] 129 mm[Hg] [facility] Body temperature 36.099084 Kaylie 36.197782 Kaylie [facility] Respiratory rate 17 /min 17 /min [facility] Oxygen 99 % 99 % [place] saturation in Medical Arterial blood Center by Pulse oximetry Heart rate 81 /min 81 /min [facility] Diastolic blood 79 mm[Hg] 79 mm[Hg] [facility] Center Systolic blood 143 mm[Hg] 143 mm[Hg] [facility] Body temperature 36.616891 Kaylie 36.146428 Kaylie [facility] Respiratory rate 17 /min 17 /min [facility] Oxygen 99 % 99 % [place] saturation in Medical Arterial blood Center by Pulse oximetry Heart rate 88 /min 88 /min [facility] Diastolic blood 76 mm[Hg] 76 mm[Hg] [facility] pressure Medical Center Systolic blood 145 mm[Hg] 145 mm[Hg] [facility] Body temperature 36.411250 Kaylie 36.290805 Kaylie [facility] Respiratory rate 18 /min 18 /min [facility] Oxygen 98 % 98 % [place] saturation in Medical Arterial blood Center by Pulse oximetry Heart rate 76 /min 76 /min [facility] Diastolic blood 75 mm[Hg] 75 mm[Hg] [facility] pressure [facility] Center Systolic blood 122 mm[Hg] 122 mm[Hg] [facility] Body temperature 37.703539 Kaylie 37.962606 Kaylie [facility] Respiratory rate 18 /min 18 /min [facility] Oxygen 97 % 97 % [place] saturation in Medical Arterial blood Center by Pulse oximetry Heart rate 89 /min 89 /min [facility] Diastolic blood 78 mm[Hg] 78 mm[Hg] [facility] Systolic blood 146 mm[Hg] 146 mm[Hg] [facility] Body temperature 36.312736 Kaylie 36.278873 Kaylie [facility] Respiratory rate 18 /min 18 /min [facility] Oxygen 98 % 98 % [place] saturation in Medical Arterial blood Center by Pulse oximetry Heart rate 82 /min 82 /min [facility] Diastolic blood 80 mm[Hg] 80 mm[Hg] [facility] Systolic blood 134 mm[Hg] 134 mm[Hg] [facility] Body temperature 37.548871 Kaylie 37.197684 Kaylie [facility] Respiratory rate 18 /min 18 /min [facility] Oxygen 99 % 99 % [place] saturation in Medical Arterial blood Center by Pulse oximetry Heart rate 86 /min 86 /min [facility] Diastolic blood 85 mm[Hg] 85 mm[Hg] [facility] Systolic blood 142 mm[Hg] 142 mm[Hg] [facility] Body weight 119.207133 kg 119.907866 kg [facility] Measured [facility] Body temperature 36.705334 Kaylie 36.507804 Kaylie [facility] Respiratory rate 18 /min 18 /min [facility] Oxygen 97 % 97 % [place] saturation in Medical Arterial blood Center by Pulse oximetry Heart rate 83 /min 83 /min [facility] Diastolic blood 69 mm[Hg] 69 mm[Hg] [facility] Systolic blood 115 mm[Hg] 115 mm[Hg] [facility] Body weight 120.662882 kg 120.640969 kg [facility]asured [facility] Body temperature 37.824496 Kaylie 37.951875 Kaylie [facility] Respiratory rate 18 /min 18 /min [facility] Oxygen 98 % 98 % [place] saturation in Medical Arterial blood Center by Pulse oximetry Heart rate 88 /min 88 /min [facility] Body height 182.323563 cm 182.139981 cm [facility] Diastolic blood 88 mm[Hg] 88 mm[Hg] [facility] pressure [facility] Center Systolic blood 148 mm[Hg] 148 mm[Hg] [facility] Body mass index 35.8 kg/m2 35.8 kg/m2 [facility] (BMI) [Ratio] Medical Center Body temperature 36.484998 Kaylie 36.591739 Kaylie [facility] Respiratory rate 17 /min 17 /min [facility] Oxygen 97 % 97 % [place] saturation in Medical Arterial blood Center by Pulse oximetry Heart rate 75 /min 75 /min [facility] Diastolic blood 71 mm[Hg] 71 mm[Hg] [facility] pressure [facility] Center Systolic blood 145 mm[Hg] 145 mm[Hg] [facility] Body temperature 36.549860 Kaylie 36.333138 Kaylie [facility] Respiratory rate 19 /min 19 /min [facility] Oxygen 97 % 97 % [place] saturation in Medical Arterial blood Center by Pulse oximetry Heart rate 88 /min 88 /min [facility] Diastolic blood 76 mm[Hg] 76 mm[Hg] [facility] Systolic blood 150 mm[Hg] 150 mm[Hg] [facility] Body temperature 36.627594 Kaylie 36.523336 Kaylie [facility] Respiratory rate 17 /min 17 /min [facility] Oxygen 98 % 98 % [place] saturation in Medical Arterial blood Center by Pulse oximetry Heart rate 71 /min 71 /min [facility] Diastolic blood 68 mm[Hg] 68 mm[Hg] [facility] Systolic blood 129 mm[Hg] 129 mm[Hg] [facility] Body temperature 36.884385 Kaylie 36.364651 Kaylie [facility] Respiratory rate 17 /min 17 /min [facility] Oxygen 97 % 97 % [place] saturation in Medical Arterial blood Center by Pulse oximetry Heart rate 75 /min 75 /min [facility] Diastolic blood 62 mm[Hg] 62 mm[Hg] [facility] pressure [facility] Center Systolic blood 133 mm[Hg] 133 mm[Hg] [facility] [place] Body temperature 36.326015 Kaylie 36.492015 Kaylie [facility] Respiratory rate 17 /min 17 /min [facility] Oxygen 99 % 99 % [place] saturation in Medical Arterial blood Center by Pulse oximetry Heart rate 80 /min 80 /min [facility] Diastolic blood 92 mm[Hg] 92 mm[Hg] [facility] Systolic blood 144 mm[Hg] 144 mm[Hg] [facility] Body temperature 36.100113 Kaylei 36.358183 Kaylie [facility] Respiratory rate 18 /min 18 /min [facility] Oxygen 97 % 97 % [place] saturation in Medical Arterial blood Center by Pulse oximetry Heart rate 89 /min 89 /min [facility] Diastolic blood 88 mm[Hg] 88 mm[Hg] [facility] Systolic blood 148 mm[Hg] 148 mm[Hg] [facility] [place] Body temperature 36.192007 Kaylie 36.485035 Kaylie [facility] Respiratory rate 17 /min 17 /min [facility] Oxygen 97 % 97 % [place] saturation in Medical Arterial blood Center by Pulse oximetry Heart rate 81 /min 81 /min [facility] Diastolic blood 79 mm[Hg] 79 mm[Hg] [facility] Systolic blood 133 mm[Hg] 133 mm[Hg] [facility] [place] Body temperature 36.090043 Kaylie 36.791195 Kaylie [facility] Respiratory rate 17 /min 17 /min [facility] Oxygen 98 % 98 % [facility] [place] saturation in Medical Arterial blood Center by Pulse oximetry Heart rate 87 /min 87 /min [facility] Diastolic blood 88 mm[Hg] 88 mm[Hg] [facility] pressure Medical Center Systolic blood 136 mm[Hg] 136 mm[Hg] [facility] Body temperature 36.003998 Kaylie 36.337608 Kaylie [facility] Respiratory rate 18 /min 18 /min [facility] Oxygen 97 % 97 % [facility] saturation in Medical Arterial blood Center by Pulse oximetry Heart rate 95 /min 95 /min [facility] Diastolic blood 84 mm[Hg] 84 mm[Hg] [facility] pressure Medical Center Systolic blood 149 mm[Hg] 149 mm[Hg] [facility] Body temperature 36.900935 Kaylie 36.388803 Kaylie [facility] Respiratory rate 17 /min 17 /min [facility] Oxygen 99 % 99 % [facility] [place] saturation in Medical Arterial blood Center by Pulse oximetry Heart rate 81 /min 81 /min [facility] Diastolic blood 76 mm[Hg] 76 mm[Hg] [facility] pressure Medical Center Systolic blood 124 mm[Hg] 124 mm[Hg] [facility] Body weight 110.300936 kg 110.322596 kg [facility] Body temperature 36.077517 Kaylie 36.514992 Kaylie [facility] Respiratory rate 18 /min 18 /min [facility] Oxygen 98 % 98 % [facility] [place] saturation in Medical Arterial blood Center by Pulse oximetry Heart rate 78 /min 78 /min [facility] Body height 185.869390 cm 185.080403 cm [facility] Diastolic blood 78 mm[Hg] 78 mm[Hg] [facility] Systolic blood 138 mm[Hg] 138 mm[Hg] [facility] Body mass index 31.9 kg/m2 31.9 kg/m2 [facility] (BMI) [Ratio] [facility] Center Body weight 113.345598 kg 113.594670 kg [facility] Body temperature 37.685789 Kaylie 37.553090 Kaylie [facility] Respiratory rate 18 /min 18 /min [facility] Oxygen 100 % 100 % [facility] [place] saturation in Medical Arterial blood Center by Pulse oximetry Heart rate 95 /min 95 /min [facility] Body height 175.222689 cm 175.219983 cm [facility] Diastolic blood 83 mm[Hg] 83 mm[Hg] [facility] Systolic blood 148 mm[Hg] 148 mm[Hg] [facility] Body mass index 36.9 kg/m2 36.9 kg/m2 [facility] (BMI) [Ratio] Medical Center Body weight 105.949188 kg 105.188560 kg [facility] Body temperature 36.026794 Kaylie 36.750582 Kaylie [facility] Respiratory rate 18 /min 18 /min [facility] Oxygen 93 % 93 % [facility] [place] saturation in Medical Arterial blood Center by Pulse oximetry Heart rate 88 /min 88 /min [facility] Body height 173.382867 cm 173.712067 cm [facility] Diastolic blood 88 mm[Hg] 88 mm[Hg] [facility] pressure Medical Center Systolic blood 140 mm[Hg] 140 mm[Hg] [facility] Body mass index 35.0 kg/m2 35.0 kg/m2 [facility] (BMI) [Ratio] [facility] Center Body temperature 37.716096 Kaylie 37.843919 Kaylie [facility] Respiratory rate 18 /min 18 /min [facility] Oxygen 95 % 95 % [facility] [place] saturation in Medical Arterial blood Center by Pulse oximetry Heart rate 97 /min 97 /min [facility] Diastolic blood 78 mm[Hg] 78 mm[Hg] [facility] Systolic blood 132 mm[Hg] 132 mm[Hg] [facility] Body temperature 37.994198 Kyalie 37.946395 Kaylie [facility] Respiratory rate 18 /min 18 /min [facility] Oxygen 95 % 95 % [facility] [place] saturation in Medical Arterial blood Center by Pulse oximetry Heart rate 96 /min 96 /min [facility] Diastolic blood 77 mm[Hg] 77 mm[Hg] [facility] Systolic blood 129 mm[Hg] 129 mm[Hg] [facility] Systolic blood 101 mm[Hg] 101 mm[Hg] [facility] Body temperature 37.856512 Kaylie 37.204079 Kaylie [facility] Respiratory rate 17 /min 17 /min [facility] Oxygen 95 % 95 % [facility] [place] saturation in Medical Arterial blood Center by Pulse oximetry Heart rate 96 /min 96 /min [facility] Diastolic blood 57 mm[Hg] 57 mm[Hg] [facility] Body temperature 36.253013 Kaylie 36.895097 Kaylie [facility] Respiratory rate 17 /min 17 /min [facility] Oxygen 98 % 98 % [facility] [place] saturation in Medical Arterial blood Center by Pulse oximetry Heart rate 71 /min 71 /min [facility] Diastolic blood 68 mm[Hg] 68 mm[Hg] [facility] pressure Medical Center Systolic blood 137 mm[Hg] 137 mm[Hg] [facility] Body temperature 36.096033 Kaylie 36.180406 Kaylie [facility] Respiratory rate 17 /min 17 /min [facility] Oxygen 98 % 98 % [facility] [place] saturation in Medical Arterial blood Center by Pulse oximetry Heart rate 73 /min 73 /min [facility] Diastolic blood 62 mm[Hg] 62 mm[Hg] [facility] pressure [facility] Center Systolic blood 133 mm[Hg] 133 mm[Hg] [facility] Body temperature 36.539497 Kaylie 36.794375 Kaylie [facility] Respiratory rate 18 /min 18 /min [facility] Oxygen 99 % 99 % [facility] [place] saturation in Medical Arterial blood Center by Pulse oximetry Heart rate 78 /min 78 /min [facility] Diastolic blood 81 mm[Hg] 81 mm[Hg] [facility] pressure Medical Center Systolic blood 158 mm[Hg] 158 mm[Hg] [facility] Body weight 150.948234 kg 150.292955 kg [facility] Body temperature 36.969633 Kaylie 36.860229 Kaylie [facility] Respiratory rate 16 /min 16 /min [facility] Oxygen 98 % 98 % [place] saturation in Medical Arterial blood Center by Pulse oximetry Heart rate 93 /min 93 /min [facility] Body height 177.727281 cm 177.353945 cm [facility] Diastolic blood 92 mm[Hg] 92 mm[Hg] [facility] pressure [facility] Center Systolic blood 140 mm[Hg] 140 mm[Hg] [facility] Body mass index 47.4 kg/m2 47.4 kg/m2 [facility] (BMI) [Ratio] Medical Center Body weight 68.801864 kg 68.541003 kg [facility] Body temperature 36.197857 Kaylie 36.026332 Kaylie [facility] Respiratory rate 18 /min 18 /min [facility] Oxygen 93 % 93 % [facility] [place] saturation in Medical Arterial blood Center by Pulse oximetry Heart rate 93 /min 93 /min [facility] Diastolic blood 87 mm[Hg] 87 mm[Hg] [facility] pressure [facility] Center Systolic blood 160 mm[Hg] 160 mm[Hg] [facility] Body temperature 36.326243 Kaylie 36.064827 Kaylie [facility] Respiratory rate 19 /min 19 /min [facility] Oxygen 97 % 97 % [facility] [place] saturation in Medical Arterial blood Center by Pulse oximetry Heart rate 88 /min 88 /min [facility] Diastolic blood 80 mm[Hg] 80 mm[Hg] [facility] pressure [facility] Center Systolic blood 150 mm[Hg] 150 mm[Hg] [facility] Body temperature 36.133734 Kaylie 36.078126 Kaylie [facility] Respiratory rate 17 /min 17 /min [facility] Oxygen 97 % 97 % [facility] [place] saturation in Medical Arterial blood Center by Pulse oximetry Heart rate 75 /min 75 /min [facility] Diastolic blood 68 mm[Hg] 68 mm[Hg] [facility] pressure [facility] Center Systolic blood 134 mm[Hg] 134 mm[Hg] [facility] [place] Body temperature 36.368057 Kaylie 36.018538 Kaylie [facility] Respiratory rate 18 /min 18 /min [facility] Oxygen 96 % 96 % [facility] [place] saturation in Medical Arterial blood Center by Pulse oximetry Heart rate 85 /min 85 /min [facility] Diastolic blood 82 mm[Hg] 82 mm[Hg] [facility] pressure [facility] Center Systolic blood 138 mm[Hg] 138 mm[Hg] [facility] Body temperature 36.603169 Kaylie 36.648932 Kaylie [facility] Respiratory rate 18 /min 18 /min [facility] Oxygen 97 % 97 % [facility] [place] saturation in Medical Arterial blood Center by Pulse oximetry Heart rate 88 /min 88 /min [facility] Diastolic blood 72 mm[Hg] 72 mm[Hg] [facility] pressure Medical Center Systolic blood 137 mm[Hg] 137 mm[Hg] [facility] Body temperature 37.617876 Kaylie 37.422983 Kaylie [facility] Respiratory rate 18 /min 18 /min [facility] Oxygen 93 % 93 % [facility] [place] saturation in Medical Arterial blood Center by Pulse oximetry Heart rate 94 /min 94 /min [facility] Diastolic blood 70 mm[Hg] 70 mm[Hg] [facility] pressure [facility] Center Systolic blood 132 mm[Hg] 132 mm[Hg] [facility] Body temperature 36.022136 Kaylie 36.212156 Kaylie [facility] Respiratory rate 18 /min 18 /min [facility] Oxygen 97 % 97 % [facility] [place] saturation in Medical Arterial blood Center by Pulse oximetry Heart rate 76 /min 76 /min [facility] Diastolic blood 76 mm[Hg] 76 mm[Hg] [facility] Systolic blood 144 mm[Hg] 144 mm[Hg] [facility] Body temperature 36.498954 Kaylie 36.988133 Kaylie [facility] Respiratory rate 19 /min 19 /min [facility] Oxygen 97 % 97 % [facility] [place] saturation in Medical Arterial blood Center by Pulse oximetry Heart rate 77 /min 77 /min [facility] Diastolic blood 86 mm[Hg] 86 mm[Hg] [facility] Systolic blood 153 mm[Hg] 153 mm[Hg] [facility] Body temperature 36.904994 Kaylie 36.215039 Kaylie [facility] Respiratory rate 17 /min 17 /min [facility] Oxygen 98 % 98 % [facility] [place] saturation in Medical Arterial blood Center by Pulse oximetry Heart rate 75 /min 75 /min [facility] Diastolic blood 75 mm[Hg] 75 mm[Hg] [facility] Systolic blood 129 mm[Hg] 129 mm[Hg] [facility] [place] Body temperature 37.482630 Kaylie 37.522608 Kaylie [facility] Respiratory rate 18 /min 18 /min [facility] Oxygen 97 % 97 % [facility] [place] saturation in Medical Arterial blood Center by Pulse oximetry Heart rate 76 /min 76 /min [facility] Diastolic blood 77 mm[Hg] 77 mm[Hg] [facility] Systolic blood 130 mm[Hg] 130 mm[Hg] [facility] Body temperature 36.786802 Kaylie 36.989714 Kaylie [facility] Respiratory rate 17 /min 17 /min [facility] Oxygen 98 % 98 % [facility] [place] saturation in Medical Arterial blood Center by Pulse oximetry Heart rate 78 /min 78 /min [facility] Diastolic blood 68 mm[Hg] 68 mm[Hg] [facility] pressure [facility] Center Systolic blood 129 mm[Hg] 129 mm[Hg] [facility] Body temperature 36.348517 Kaylie 36.597992 Kaylie [facility] Respiratory rate 19 /min 19 /min [facility] Oxygen 98 % 98 % [facility] [place] saturation in Medical Arterial blood Center by Pulse oximetry Heart rate 92 /min 92 /min [facility] Diastolic blood 64 mm[Hg] 64 mm[Hg] [facility] [place] Systolic blood 125 mm[Hg] 125 mm[Hg] [facility] Body temperature 36.061525 Kaylie 36.941629 Kaylie [facility] Respiratory rate 20 /min 20 /min [facility] Oxygen 98 % 98 % [facility] [place] saturation in Medical Arterial blood Center by Pulse oximetry Heart rate 93 /min 93 /min [facility] Diastolic blood 92 mm[Hg] 92 mm[Hg] [facility] [place] Systolic blood 150 mm[Hg] 150 mm[Hg] [facility] Body temperature 36.678379 Kaylie 36.733786 Kaylie [facility] Respiratory rate 18 /min 18 /min [facility] Oxygen 97 % 97 % [facility] [place] saturation in Medical Arterial blood Center by Pulse oximetry Heart rate 79 /min 79 /min [facility] Diastolic blood 78 mm[Hg] 78 mm[Hg] [facility] Systolic blood 138 mm[Hg] 138 mm[Hg] [facility] Body temperature 36.581114 Kaylie 36.895945 Kaylie [facility] Respiratory rate 17 /min 17 /min [facility] Oxygen 95 % 95 % [facility] [place] saturation in Medical Arterial blood Center by Pulse oximetry Heart rate 72 /min 72 /min [facility] Diastolic blood 67 mm[Hg] 67 mm[Hg] [facility] pressure [facility] Center Systolic blood 134 mm[Hg] 134 mm[Hg] [facility] Body temperature 36.925321 Kaylie 36.703703 Kaylie [facility] Respiratory rate 19 /min 19 /min [facility] Oxygen 95 % 95 % [facility] saturation in Medical Arterial blood Center by Pulse oximetry Heart rate 68 /min 68 /min [facility] Diastolic blood 68 mm[Hg] 68 mm[Hg] [facility] pressure [facility] Center Systolic blood 144 mm[Hg] 144 mm[Hg] [facility] Body temperature 36.924644 Kaylie 36.681584 Kaylie [facility] Respiratory rate 17 /min 17 /min [facility] Oxygen 96 % 96 % [facility] saturation in Medical Arterial blood Center by Pulse oximetry Heart rate 78 /min 78 /min [facility] Diastolic blood 76 mm[Hg] 76 mm[Hg] [facility] pressure [facility] Center Systolic blood 140 mm[Hg] 140 mm[Hg] [facility] Body weight 99.655551 kg 99.032751 kg [facility] Body temperature 36.666462 Kaylie 36.220561 Kaylie [facility] Respiratory rate 19 /min 19 /min [facility] Oxygen 98 % 98 % [facility] saturation in Medical Arterial blood Center by Pulse oximetry Heart rate 88 /min 88 /min [facility] Body height 177.835208 cm 177.866059 cm [facility] Diastolic blood 82 mm[Hg] 82 mm[Hg] [facility] pressure [facility] Center Systolic blood 148 mm[Hg] 148 mm[Hg] [facility] Body mass index 31.5 kg/m2 31.5 kg/m2 [facility] (BMI) [Ratio] Medical Center Body temperature 36.936377 Kaylie 36.335785 Kaylie [facility] Respiratory rate 17 /min 17 /min [facility] Oxygen 98 % 98 % [facility] saturation in Medical Arterial blood Center by Pulse oximetry Heart rate 94 /min 94 /min [facility] Diastolic blood 90 mm[Hg] 90 mm[Hg] [facility] pressure [facility] Center Systolic blood 160 mm[Hg] 160 mm[Hg] [facility] Respiratory rate 18 /min 18 /min [facility] Oxygen 98 % 98 % [place] saturation in Medical Arterial blood Center by Pulse oximetry Heart rate 85 /min 85 /min [facility] Diastolic blood 85 mm[Hg] 85 mm[Hg] [facility] pressure [facility] Center Systolic blood 142 mm[Hg] 142 mm[Hg] [facility] Body temperature 37.166034 Kaylie 37.828191 Kaylie [facility] Body weight 110.437549 kg 110.856856 kg [facility] Body temperature 36.314584 Kaylie 36.395097 Kaylie [facility] Respiratory rate 18 /min 18 /min [facility] Oxygen 98 % 98 % [facility] saturation in Medical Arterial blood Center by Pulse oximetry Heart rate 84 /min 84 /min [facility] Body height 182.485117 cm 182.207707 cm [facility] Diastolic blood 58 mm[Hg] 58 mm[Hg] [facility] Systolic blood 148 mm[Hg] 148 mm[Hg] [facility] [place] Body mass index 32.8 kg/m2 32.8 kg/m2 [facility] (BMI) [Ratio] Medical Center Body temperature 36.550124 Kaylie 36.169656 Kaylie [facility] Respiratory rate 18 /min 18 /min [facility] Oxygen 97 % 97 % [place] saturation in Medical Arterial blood Center by Pulse oximetry Heart rate 118 /min 118 /min [facility] Diastolic blood 58 mm[Hg] 58 mm[Hg] [facility] pressure [facility] Center Systolic blood 120 mm[Hg] 120 mm[Hg] [facility] Body temperature 36.986060 Kaylie 36.617277 Kaylie [facility] Respiratory rate 20 /min 20 /min [facility] Oxygen 96 % 96 % [place] saturation in Medical Arterial blood Center by Pulse oximetry Heart rate 143 /min 143 /min [facility] Diastolic blood 40 mm[Hg] 40 mm[Hg] [facility] pressure [facility] Center Systolic blood 119 mm[Hg] 119 mm[Hg] [facility] Respiratory rate 20 /min 20 /min [facility] Oxygen 98 % 98 % [place] saturation in Medical Arterial blood Center by Pulse oximetry Heart rate 92 /min 92 /min [facility] Diastolic blood 86 mm[Hg] 86 mm[Hg] [facility] pressure [facility] Center Systolic blood 134 mm[Hg] 134 mm[Hg] [facility] Body temperature 36.331362 Kaylie 36.960000 Kaylie [facility] Respiratory rate 18 /min 18 /min [facility] Oxygen 98 % 98 % [facility] saturation in Medical Arterial blood Center by Pulse oximetry Heart rate 87 /min 87 /min [facility] Diastolic blood 90 mm[Hg] 90 mm[Hg] [facility] pressure [facility] Center Systolic blood 145 mm[Hg] 145 mm[Hg] [facility] Body temperature 36.063323 Kaylie 36.734362 Kaylie [facility] Respiratory rate 16 /min 16 /min [facility] Oxygen 97 % 97 % [place] saturation in Medical Arterial blood Center by Pulse oximetry Heart rate 85 /min 85 /min [facility] Diastolic blood 76 mm[Hg] 76 mm[Hg] [facility] pressure [facility] Center Systolic blood 123 mm[Hg] 123 mm[Hg] [facility] [place] Body temperature 36.656108 Kaylie 36.698065 Kaylie [facility] Body weight 125.974824 kg 125.111221 kg [facility] Body temperature 36.205644 Kaylie 36.845486 Kaylie [facility] Respiratory rate 20 /min 20 /min [facility] Oxygen 95 % 95 % [facility] saturation in Medical Arterial blood Center by Pulse oximetry Heart rate 100 /min 100 /min [facility] Body height 177.921522 cm 177.466262 cm [facility] Diastolic blood 76 mm[Hg] 76 mm[Hg] [facility] pressure [facility] Center Systolic blood 124 mm[Hg] 124 mm[Hg] [facility] Body mass index 39.5 kg/m2 39.5 kg/m2 [facility] (BMI) [Ratio] Medical Center Body temperature 36.030908 Kaylie 36.775368 Kaylie [facility] Respiratory rate 17 /min 17 /min [facility] Oxygen 96 % 96 % [facility] [place] saturation in Medical Arterial blood Center by Pulse oximetry Heart rate 77 /min 77 /min [facility] Diastolic blood 71 mm[Hg] 71 mm[Hg] [facility] pressure [facility] Center Systolic blood 122 mm[Hg] 122 mm[Hg] [facility] Body temperature 37.552986 Kaylie 37.320782 Kaylie [facility] Respiratory rate 19 /min 19 /min [facility] Oxygen 96 % 96 % [facility] [place] saturation in Medical Arterial blood Center by Pulse oximetry Heart rate 72 /min 72 /min [facility] Diastolic blood 64 mm[Hg] 64 mm[Hg] [facility] pressure [facility] Center Systolic blood 140 mm[Hg] 140 mm[Hg] [facility] [place] Body temperature 36.101844 Kaylie 36.717575 Kaylie [facility] Respiratory rate 18 /min 18 /min [facility] Oxygen 97 % 97 % [facility] [place] saturation in Medical Arterial blood Center by Pulse oximetry Heart rate 68 /min 68 /min [facility] Diastolic blood 86 mm[Hg] 86 mm[Hg] [facility] Systolic blood 135 mm[Hg] 135 mm[Hg] [facility] [place] Body temperature 36.780139 Kaylie 36.938314 Kaylie [facility] Respiratory rate 18 /min 18 /min [facility] Oxygen 97 % 97 % [facility] [place] saturation in Medical Arterial blood Center by Pulse oximetry Heart rate 78 /min 78 /min [facility] Diastolic blood 69 mm[Hg] 69 mm[Hg] [facility] pressure [facility] Center Systolic blood 134 mm[Hg] 134 mm[Hg] [facility] [place] Body temperature 36.442620 Kaylie 36.893133 Kaylie [facility] Respiratory rate 18 /min 18 /min [facility] Oxygen 96 % 96 % [facility] [place] saturation in Medical Arterial blood Center by Pulse oximetry Heart rate 87 /min 87 /min [facility] Diastolic blood 80 mm[Hg] 80 mm[Hg] [facility] pressure [facility] Center Systolic blood 135 mm[Hg] 135 mm[Hg] [facility] Heart rate 77 /min 77 /min [facility] Diastolic blood 77 mm[Hg] 77 mm[Hg] [facility] Systolic blood 142 mm[Hg] 142 mm[Hg] [facility] Body temperature 36.101499 Kaylie 36.648705 Kaylie [facility] Respiratory rate 18 /min 18 /min [facility] Oxygen 97 % 97 % [facility] [place] saturation in Medical Arterial blood Center by Pulse oximetry Body temperature 36.504941 Kaylie 36.053543 Kaylie [facility] Respiratory rate 18 /min 18 /min [facility] Oxygen 98 % 98 % [facility] [place] saturation in Medical Arterial blood Center by Pulse oximetry Heart rate 78 /min 78 /min [facility] Diastolic blood 80 mm[Hg] 80 mm[Hg] [facility] Systolic blood 124 mm[Hg] 124 mm[Hg] [facility] Body temperature 36.484468 Kaylie 36.608386 Kaylie [facility] Respiratory rate 17 /min 17 /min [facility] Oxygen 96 % 96 % [facility] saturation in Medical Arterial blood Center by Pulse oximetry Heart rate 80 /min 80 /min [facility] Diastolic blood 88 mm[Hg] 88 mm[Hg] [facility] pressure [facility] Center Systolic blood 133 mm[Hg] 133 mm[Hg] [facility] [place] Body temperature 36.268266 Kaylie 36.248487 Kaylie [facility] Respiratory rate 17 /min 17 /min [facility] Oxygen 99 % 99 % [place] saturation in Medical Arterial blood Center by Pulse oximetry Heart rate 80 /min 80 /min [facility] Diastolic blood 78 mm[Hg] 78 mm[Hg] [facility] Systolic blood 132 mm[Hg] 132 mm[Hg] [facility] Body weight 90.983529 kg 90.621318 kg [facility] Body height 177.283836 cm 177.337335 cm [facility] Body mass index 28.4 kg/m2 28.4 kg/m2 [facility] (BMI) [Ratio] Medical Center Body temperature 36.539033 Kaylie 36.453452 Kaylie [facility] Respiratory rate 18 /min 18 /min [facility] Oxygen 96 % 96 % [facility] saturation in Medical Arterial blood Center by Pulse oximetry Heart rate 90 /min 90 /min [facility] Diastolic blood 58 mm[Hg] 58 mm[Hg] [facility] pressure [facility] Center Systolic blood 111 mm[Hg] 111 mm[Hg] [facility] Body temperature 36.079931 Kaylie 36.812416 Kaylie [facility] Respiratory rate 18 /min 18 /min [facility] Oxygen 95 % 95 % [facility] saturation in Medical Arterial blood Center by Pulse oximetry Heart rate 94 /min 94 /min [facility] Diastolic blood 55 mm[Hg] 55 mm[Hg] [facility] Systolic blood 114 mm[Hg] 114 mm[Hg] [facility] Body weight 110.536999 kg 110.110612 kg [facility] Body temperature 37.582605 Kaylie 37.575965 Kaylie [facility] Respiratory rate 18 /min 18 /min [facility] Oxygen 98 % 98 % [facility] saturation in Medical Arterial blood Center by Pulse oximetry Heart rate 88 /min 88 /min [facility] Body height 185.031097 cm 185.422194 cm [facility] Diastolic blood 78 mm[Hg] 78 mm[Hg] [facility] pressure [facility] Center Systolic blood 143 mm[Hg] 143 mm[Hg] [facility] Body mass index 31.9 kg/m2 31.9 kg/m2 [facility] (BMI) [Ratio] Medical Center Diastolic blood 79 mm[Hg] 79 mm[Hg] [facility] Systolic blood 122 mm[Hg] 122 mm[Hg] [facility] Body temperature 36.944321 Kaylie 36.396694 Kaylie [facility] Respiratory rate 18 /min 18 /min [facility] Oxygen 98 % 98 % [facility] saturation in Medical Arterial blood Center by Pulse oximetry Heart rate 88 /min 88 /min [facility] Diastolic blood 51 mm[Hg] 51 mm[Hg] [facility] Systolic blood 81 mm[Hg] 81 mm[Hg] [facility] Body temperature 37.999723 Kaylie 37.676802 [facility] Respiratory rate 18 /min 18 /min [facility] Oxygen 96 % 96 % [facility] saturation in Medical Arterial blood Center by Pulse oximetry Heart rate 98 /min 98 /min [facility] Diastolic blood 90 mm[Hg] 90 mm[Hg] [facility] pressure [facility] Center Systolic blood 148 mm[Hg] 148 mm[Hg] [facility] Body temperature 37.512895 Kaylie 37.250366 Kaylie [facility] Respiratory rate 18 /min 18 /min [facility] Oxygen 95 % 95 % [facility] saturation in Medical Arterial blood Center by Pulse oximetry Heart rate 99 /min 99 /min [facility] Diastolic blood 79 mm[Hg] 79 mm[Hg] [facility] pressure Medical Center Systolic blood 132 mm[Hg] 132 mm[Hg] [facility] [place] Body temperature 36.507317 Kaylie 36.933009 Kaylie [facility] Respiratory rate 18 /min 18 /min [facility] Oxygen 96 % 96 % [facility] saturation in Medical Arterial blood Center by Pulse oximetry Heart rate 97 /min 97 /min [facility] Diastolic blood 64 mm[Hg] 64 mm[Hg] [facility] pressure [facility] Center Systolic blood 118 mm[Hg] 118 mm[Hg] [facility] [place] Body temperature 36.535159 Kaylie 36.743558 Kaylie [facility] Respiratory rate 18 /min 18 /min [facility] Oxygen 96 % 96 % [facility] saturation in Medical Arterial blood Center by Pulse oximetry Heart rate 95 /min 95 /min [facility] Diastolic blood 68 mm[Hg] 68 mm[Hg] [facility] Systolic blood 127 mm[Hg] 127 mm[Hg] [facility] [place] Body temperature 37.990783 Kaylie 37.365344 Kaylie [facility] Respiratory rate 18 /min 18 /min [facility] Oxygen 95 % 95 % [facility] [place] saturation in Medical Arterial blood Center by Pulse oximetry Heart rate 94 /min 94 /min [facility] Diastolic blood 69 mm[Hg] 69 mm[Hg] [facility] pressure [facility] Center Systolic blood 115 mm[Hg] 115 mm[Hg] [facility] Body temperature 36.680699 Kaylie 36.523578 Kaylie [facility] Respiratory rate 17 /min 17 /min [facility] Oxygen 95 % 95 % [facility] [place] saturation in Medical Arterial blood Center by Pulse oximetry Heart rate 90 /min 90 /min [facility] Diastolic blood 60 mm[Hg] 60 mm[Hg] [facility] pressure [facility] Center Systolic blood 109 mm[Hg] 109 mm[Hg] [facility] Body temperature 36.609657 Kaylie 36.266926 Kaylie [facility] Respiratory rate 16 /min 16 /min [facility] Heart rate 85 /min 85 /min [facility] Diastolic blood 73 mm[Hg] 73 mm[Hg] [facility] pressure [facility] Center Systolic blood 140 mm[Hg] 140 mm[Hg] [facility] [place] Body temperature 36.479473 Kaylie 36.604913 Kaylie [facility] Respiratory rate 18 /min 18 /min [facility] Oxygen 95 % 95 % [facility] saturation in Medical Arterial blood Center by Pulse oximetry Heart rate 90 /min 90 /min [facility] Diastolic blood 76 mm[Hg] 76 mm[Hg] [facility] Systolic blood 131 mm[Hg] 131 mm[Hg] [facility] [place] Body temperature 36.440468 Kaylie 36.542072 Kaylie [facility] Respiratory rate 18 /min 18 /min [facility] Oxygen 94 % 94 % [facility] saturation in Medical Arterial blood Center by Pulse oximetry Heart rate 88 /min 88 /min [facility] Diastolic blood 74 mm[Hg] 74 mm[Hg] [facility] Systolic blood 152 mm[Hg] 152 mm[Hg] [facility] Body temperature 36.919219 Kaylie 36.687424 Kaylie [facility] Respiratory rate 17 /min 17 /min [facility] Heart rate 99 /min 99 /min [facility] Diastolic blood 52 mm[Hg] 52 mm[Hg] [facility] Systolic blood 111 mm[Hg] 111 mm[Hg] [facility] Body weight 79.093341 kg 79.570922 kg [facility] [place] Body temperature 36.719216 Kaylie 36.050790 Kaylie [facility] Respiratory rate 19 /min 19 /min [facility] Oxygen 95 % 95 % [facility] [place] saturation in Medical Arterial blood Center by Pulse oximetry Heart rate 74 /min 74 /min [facility] Body height 170.390853 cm 170.379181 cm [facility] Diastolic blood 86 mm[Hg] 86 mm[Hg] [facility] pressure [facility] Center Systolic blood 152 mm[Hg] 152 mm[Hg] [facility] Body mass index 27.4 kg/m2 27.4 kg/m2 [facility] (BMI) [Ratio] Medical Center Body temperature 36.213978 Kaylie 36.992656 Kaylie [facility] Respiratory rate 18 /min 18 /min [facility] Oxygen 98 % 98 % [facility] saturation in Medical Arterial blood Center by Pulse oximetry Heart rate 96 /min 96 /min [facility] Diastolic blood 78 mm[Hg] 78 mm[Hg] [facility] pressure [facility] Center Systolic blood 143 mm[Hg] 143 mm[Hg] [facility] Body temperature 36.181282 Kaylie 36.880458 Kaylie [facility] Respiratory rate 19 /min 19 /min [facility] Oxygen 96 % 96 % [facility] saturation in Medical Arterial blood Center by Pulse oximetry Heart rate 105 /min 105 /min [facility] Diastolic blood 66 mm[Hg] 66 mm[Hg] [facility] Systolic blood 113 mm[Hg] 113 mm[Hg] [facility] Body temperature 36.836510 Kaylie 36.000001 Kaylie [facility] Respiratory rate 18 /min 18 /min [facility] Oxygen 96 % 96 % [facility] saturation in Medical Arterial blood Center by Pulse oximetry Heart rate 92 /min 92 /min [facility] Diastolic blood 70 mm[Hg] 70 mm[Hg] [facility] pressure [facility] Center Systolic blood 128 mm[Hg] 128 mm[Hg] [facility] Body temperature 36.904068 Kaylie 36.159944 Kaylie [facility] Respiratory rate 17 /min 17 /min [facility] Oxygen 97 % 97 % [facility] [place] saturation in Medical Arterial blood Center by Pulse oximetry Heart rate 78 /min 78 /min [facility] Diastolic blood 78 mm[Hg] 78 mm[Hg] [facility] pressure [facility] Center Systolic blood 138 mm[Hg] 138 mm[Hg] [facility] [place] Body temperature 36.419926 Kaylie 36.159083 Kaylie [facility] Respiratory rate 18 /min 18 /min [facility] Oxygen 95 % 95 % [facility] [place] saturation in Medical Arterial blood Center by Pulse oximetry Heart rate 90 /min 90 /min [facility] Diastolic blood 77 mm[Hg] 77 mm[Hg] [facility] [place] Systolic blood 147 mm[Hg] 147 mm[Hg] [facility] Body temperature 37.712538 Kaylie 37.749522 Kaylie [facility] Respiratory rate 18 /min 18 /min [facility] Oxygen 95 % 95 % [facility] [place] saturation in Medical Arterial blood Center by Pulse oximetry Heart rate 74 /min 74 /min [facility] Diastolic blood 65 mm[Hg] 65 mm[Hg] [facility] [place] Systolic blood 127 mm[Hg] 127 mm[Hg] [facility] [place] Body temperature 36.766572 Kaylie 36.126725 Kaylie [facility] Respiratory rate 18 /min 18 /min [facility] Oxygen 96 % 96 % [facility] saturation in Medical Arterial blood Center by Pulse oximetry Heart rate 90 /min 90 /min [facility] Diastolic blood 60 mm[Hg] 60 mm[Hg] [facility] [place] Systolic blood 131 mm[Hg] 131 mm[Hg] [facility] Body temperature 36.103659 Kaylie 36.519502 Kaylie [facility] Respiratory rate 17 /min 17 /min [facility] Oxygen 98 % 98 % [facility] [place] saturation in Medical Arterial blood Center by Pulse oximetry Heart rate 73 /min 73 /min [facility] Diastolic blood 75 mm[Hg] 75 mm[Hg] [facility] Systolic blood 139 mm[Hg] 139 mm[Hg] [facility] [place] Body temperature 36.934346 Kaylie 36.281502 Kaylie [facility] Respiratory rate 18 /min 18 /min [facility] Oxygen 99 % 99 % [facility] [place] saturation in Medical Arterial blood Center by Pulse oximetry Heart rate 103 /min 103 /min [facility] Diastolic blood 43 mm[Hg] 43 mm[Hg] [facility] pressure [facility] Center Systolic blood 117 mm[Hg] 117 mm[Hg] [facility] Body temperature 37.700958 Kaylie 37.066968 Kaylie [facility] Respiratory rate 17 /min 17 /min [facility] Oxygen 95 % 95 % [facility] saturation in Medical Arterial blood Center by Pulse oximetry Heart rate 97 /min 97 /min [facility] Diastolic blood 83 mm[Hg] 83 mm[Hg] [facility] Systolic blood 154 mm[Hg] 154 mm[Hg] [facility] Body temperature 36.942689 Kaylie 36.600875 Kaylie [facility] Respiratory rate 18 /min 18 /min [facility] Oxygen 98 % 98 % [facility] saturation in Medical Arterial blood Center by Pulse oximetry Heart rate 91 /min 91 /min [facility] Diastolic blood 90 mm[Hg] 90 mm[Hg] [facility] Systolic blood 158 mm[Hg] 158 mm[Hg] [facility] [place] Body temperature 36.483897 Kaylie 36.378484 Kaylie [facility] Respiratory rate 18 /min 18 /min [facility] Oxygen 96 % 96 % [facility] saturation in Medical Arterial blood Center by Pulse oximetry Heart rate 91 /min 91 /min [facility] Diastolic blood 98 mm[Hg] 98 mm[Hg] [facility] Systolic blood 149 mm[Hg] 149 mm[Hg] [facility] Body temperature 36.877055 Kaylie 36.528339 Kaylie [facility] Respiratory rate 18 /min 18 /min [facility] Oxygen 98 % 98 % [facility] saturation in Medical Arterial blood Center by Pulse oximetry Heart rate 84 /min 84 /min [facility] Diastolic blood 67 mm[Hg] 67 mm[Hg] [facility] Systolic blood 128 mm[Hg] 128 mm[Hg] [facility] Body weight 90.962733 kg 90.482273 kg [facility] Body temperature 36.863738 Kaylie 36.470371 Kaylie [facility] Respiratory rate 17 /min 17 /min [facility] Oxygen 96 % 96 % [facility] saturation in Medical Arterial blood Center by Pulse oximetry Heart rate 79 /min 79 /min [facility] Body height 177.814502 cm 177.469445 cm [facility] Diastolic blood 74 mm[Hg] 74 mm[Hg] [facility] pressure [facility] Center Systolic blood 120 mm[Hg] 120 mm[Hg] [facility] Body mass index 28.6 kg/m2 28.6 kg/m2 [facility] (BMI) [Ratio] Medical Center Body temperature 37.622915 Kaylie 37.411793 Kaylie [facility] Respiratory rate 18 /min 18 /min [facility] Heart rate 95 /min 95 /min [facility] Diastolic blood 114 mm[Hg] 114 mm[Hg] [facility] Systolic blood 179 mm[Hg] 179 mm[Hg] [facility] Body temperature 36.215285 Kaylie 36.869684 Kaylie [facility] Respiratory rate 18 /min 18 /min [facility] Oxygen 96 % 96 % [facility] saturation in Medical Arterial blood Center by Pulse oximetry Heart rate 85 /min 85 /min [facility] Diastolic blood 90 mm[Hg] 90 mm[Hg] [facility] Systolic blood 144 mm[Hg] 144 mm[Hg] [facility] Body temperature 36.621609 Kaylie 36.184616 Kaylie [facility] Respiratory rate 18 /min 18 /min [facility] Oxygen 95 % 95 % [facility] [place] saturation in Medical Arterial blood Center by Pulse oximetry Heart rate 84 /min 84 /min [facility] Diastolic blood 80 mm[Hg] 80 mm[Hg] [facility] Systolic blood 138 mm[Hg] 138 mm[Hg] [facility] [place] Body weight 110.749225 kg 110.299177 kg [facility] Body temperature 36.865902 Kaylie 36.879494 Kaylie [facility] Respiratory rate 18 /min 18 /min [facility] Oxygen 98 % 98 % [facility] [place] saturation in Medical Arterial blood Center by Pulse oximetry Heart rate 78 /min 78 /min [facility] Body height 185.495525 cm 185.634765 cm [facility] Diastolic blood 78 mm[Hg] 78 mm[Hg] [facility] pressure [facility] Center Systolic blood 148 mm[Hg] 148 mm[Hg] [facility] Body mass index 31.9 kg/m2 31.9 kg/m2 [facility] (BMI) [Ratio] Medical Center Body temperature 36.540804 Kaylie 36.993828 Kaylie [facility] Respiratory rate 20 /min 20 /min [facility] Oxygen 94 % 94 % [place] saturation in Medical Arterial blood Center by Pulse oximetry Heart rate 80 /min 80 /min [facility] Diastolic blood 69 mm[Hg] 69 mm[Hg] [facility] Systolic blood 125 mm[Hg] 125 mm[Hg] [facility] Body temperature 36.706948 Kaylie 36.614072 Kaylie [facility] Respiratory rate 18 /min 18 /min [facility] Oxygen 100 % 100 % [facility] saturation in Medical Arterial blood Center by Pulse oximetry Heart rate 78 /min 78 /min [facility] Diastolic blood 70 mm[Hg] 70 mm[Hg] [facility] pressure [facility] Center Systolic blood 130 mm[Hg] 130 mm[Hg] [facility] Body temperature 36.201719 Kaylie 36.425014 Kaylie [facility] Respiratory rate 18 /min 18 /min [facility] Oxygen 95 % 95 % [facility] saturation in Medical Arterial blood Center by Pulse oximetry Heart rate 93 /min 93 /min [facility] Diastolic blood 83 mm[Hg] 83 mm[Hg] [facility] Systolic blood 163 mm[Hg] 163 mm[Hg] [facility] Body temperature 36.092059 Kaylie 36.193813 Kaylie [facility] Respiratory rate 20 /min 20 /min [facility] Oxygen 94 % 94 % [facility] [place] saturation in Medical Arterial blood Center by Pulse oximetry Heart rate 94 /min 94 /min [facility] Diastolic blood 90 mm[Hg] 90 mm[Hg] [facility] Systolic blood 130 mm[Hg] 130 mm[Hg] [facility] Body weight 104.868882 kg 104.285690 kg [facility] Body temperature 36.032768 Kaylie 36.462117 Kaylie [facility] Respiratory rate 17 /min 17 /min [facility] Oxygen 100 % 100 % [facility] saturation in Medical Arterial blood Center by Pulse oximetry Heart rate 91 /min 91 /min [facility] Body height 177.053609 cm 177.926321 cm [facility] Diastolic blood 97 mm[Hg] 97 mm[Hg] [facility] Systolic blood 123 mm[Hg] 123 mm[Hg] [facility] Body mass index 33.0 kg/m2 33.0 kg/m2 [facility] (BMI) [Ratio] Medical Center Body temperature 37.822933 Kaylie 37.004781 Kaylie [facility] Respiratory rate 18 /min 18 /min [facility] Oxygen 97 % 97 % [facility] saturation in Medical Arterial blood Center by Pulse oximetry Heart rate 90 /min 90 /min [facility] Diastolic blood 76 mm[Hg] 76 mm[Hg] [facility] Systolic blood 148 mm[Hg] 148 mm[Hg] [facility] Body temperature 37.523560 Kaylie 37.746062 Kaylie [facility] Respiratory rate 18 /min 18 /min [facility] Oxygen 96 % 96 % [facility] [place] saturation in Medical Arterial blood Center by Pulse oximetry Heart rate 96 /min 96 /min [facility] Diastolic blood 97 mm[Hg] 97 mm[Hg] [facility] Systolic blood 176 mm[Hg] 176 mm[Hg] [facility] Body temperature 36.259319 Kaylie 36.359948 Kaylie [facility] Respiratory rate 18 /min 18 /min [facility] Oxygen 99 % 99 % [facility] [place] saturation in Medical Arterial blood Center by Pulse oximetry Heart rate 98 /min 98 /min [facility] Diastolic blood 91 mm[Hg] 91 mm[Hg] [facility] Systolic blood 152 mm[Hg] 152 mm[Hg] [facility] Body temperature 37.009062 Kaylie 37.071622 Kaylie [facility] Respiratory rate 18 /min 18 /min [facility] Oxygen 94 % 94 % [facility] [place] saturation in Medical Arterial blood Center by Pulse oximetry Heart rate 84 /min 84 /min [facility] Diastolic blood 81 mm[Hg] 81 mm[Hg] [facility] pressure [facility] Center Systolic blood 144 mm[Hg] 144 mm[Hg] [facility] Body temperature 36.205012 Kaylie 36.683342 Kaylie [facility] Respiratory rate 19 /min 19 /min [facility] Oxygen 99 % 99 % [facility] [place] saturation in Medical Arterial blood Center by Pulse oximetry Heart rate 80 /min 80 /min [facility] Diastolic blood 78 mm[Hg] 78 mm[Hg] [facility] Systolic blood 139 mm[Hg] 139 mm[Hg] [facility] [place] Body temperature 36.919702 Kaylie 36.322253 Kaylie [facility] Respiratory rate 19 /min 19 /min [facility] Oxygen 97 % 97 % [facility] saturation in Medical Arterial blood Center by Pulse oximetry Heart rate 71 /min 71 /min [facility] Diastolic blood 88 mm[Hg] 88 mm[Hg] [facility] Systolic blood 138 mm[Hg] 138 mm[Hg] [facility] [place] Body temperature 36.168529 Kaylie 36.326780 Kaylie [facility] Respiratory rate 18 /min 18 /min [facility] Oxygen 98 % 98 % [facility] [place] saturation in Medical Arterial blood Center by Pulse oximetry Heart rate 97 /min 97 /min [facility] Diastolic blood 90 mm[Hg] 90 mm[Hg] [facility] Systolic blood 156 mm[Hg] 156 mm[Hg] [facility] Body temperature 36.427260 Kaylie 36.213138 Kaylie [facility] Respiratory rate 18 /min 18 /min [facility] Oxygen 95 % 95 % [facility] saturation in Medical Arterial blood Center by Pulse oximetry Heart rate 98 /min 98 /min [facility] Diastolic blood 93 mm[Hg] 93 mm[Hg] [facility] pressure [facility] Center Systolic blood 163 mm[Hg] 163 mm[Hg] [facility] Body temperature 36.697926 Kaylie 36.291064 Kaylie [facility] Respiratory rate 18 /min 18 /min [facility] Oxygen 95 % 95 % [facility] saturation in Medical Arterial blood Center by Pulse oximetry Heart rate 84 /min 84 /min [facility] Diastolic blood 83 mm[Hg] 83 mm[Hg] [facility] pressure [facility] Center Systolic blood 130 mm[Hg] 130 mm[Hg] [facility] Body temperature 36.383833 Kaylie 36.824582 Kaylie [facility] Respiratory rate 17 /min 17 /min [facility] Oxygen 96 % 96 % [facility] saturation in Medical Arterial blood Center by Pulse oximetry Heart rate 81 /min 81 /min [facility] Diastolic blood 71 mm[Hg] 71 mm[Hg] [facility] Systolic blood 118 mm[Hg] 118 mm[Hg] [facility] Body temperature 37.972689 Kaylie 37.413814 Kaylie [facility] Respiratory rate 18 /min 18 /min [facility] Oxygen 91 % 91 % [facility] saturation in Medical Arterial blood Center by Pulse oximetry Heart rate 107 /min 107 /min [facility] Diastolic blood 79 mm[Hg] 79 mm[Hg] [facility] Systolic blood 144 mm[Hg] 144 mm[Hg] [facility] Body temperature 36.182189 Kaylie 36.516907 Kaylie [facility] Respiratory rate 18 /min 18 /min [facility] Oxygen 90 % 90 % [place] saturation in Medical Arterial blood Center by Pulse oximetry Heart rate 96 /min 96 /min [facility] Diastolic blood 43 mm[Hg] 43 mm[Hg] [facility] Systolic blood 100 mm[Hg] 100 mm[Hg] [facility] Body temperature 36.709568 Kaylie 36.523876 Kaylie [facility] Respiratory rate 18 /min 18 /min [facility] Oxygen 98 % 98 % [facility] [place] saturation in Medical Arterial blood Center by Pulse oximetry Heart rate 96 /min 96 /min [facility] Diastolic blood 80 mm[Hg] 80 mm[Hg] [facility] Systolic blood 132 mm[Hg] 132 mm[Hg] [facility] Body temperature 37.202562 Kaylie 37.980411 Kaylie [facility] Respiratory rate 18 /min 18 /min [facility] Oxygen 97 % 97 % [facility] [place] saturation in Medical Arterial blood Center by Pulse oximetry Heart rate 98 /min 98 /min [facility] Diastolic blood 57 mm[Hg] 57 mm[Hg] [facility] pressure Medical Center Systolic blood 141 mm[Hg] 141 mm[Hg] [facility] Body temperature 36.447481 Kaylie 36.917671 Kaylie [facility] Respiratory rate 20 /min 20 /min [facility] Oxygen 97 % 97 % [place] saturation in Medical Arterial blood Center by Pulse oximetry Heart rate 100 /min 100 /min [facility] Diastolic blood 71 mm[Hg] 71 mm[Hg] [facility] Systolic blood 140 mm[Hg] 140 mm[Hg] [facility] Body temperature 36.679095 Kaylie 36.789079 Kaylie [facility] Respiratory rate 18 /min 18 /min [facility] Oxygen 98 % 98 % [place] saturation in Medical Arterial blood Center by Pulse oximetry Heart rate 96 /min 96 /min [facility] Diastolic blood 67 mm[Hg] 67 mm[Hg] [facility] Systolic blood 132 mm[Hg] 132 mm[Hg] [facility] Body temperature 36.727192 Kaylie 36.339770 Kaylie [facility] Respiratory rate 17 /min 17 /min [facility] Oxygen 98 % 98 % [facility] [place] saturation in Medical Arterial blood Center by Pulse oximetry Heart rate 87 /min 87 /min [facility] Diastolic blood 71 mm[Hg] 71 mm[Hg] [facility] pressure Medical Center Systolic blood 133 mm[Hg] 133 mm[Hg] [facility] Body temperature 36.164501 Kaylie 36.403332 Kaylie [facility] Respiratory rate 17 /min 17 /min [facility] Oxygen 95 % 95 % [facility] [place] saturation in Medical Arterial blood Center by Pulse oximetry Heart rate 100 /min 100 /min [facility] Diastolic blood 78 mm[Hg] 78 mm[Hg] [facility] Systolic blood 124 mm[Hg] 124 mm[Hg] [facility] Body temperature 36.461229 Kaylie 36.252414 Kaylie [facility] Respiratory rate 19 /min 19 /min [facility] Oxygen 95 % 95 % [place] saturation in Medical Arterial blood Center by Pulse oximetry Heart rate 103 /min 103 /min [facility] Diastolic blood 65 mm[Hg] 65 mm[Hg] [facility] Systolic blood 126 mm[Hg] 126 mm[Hg] [facility] [place] Body temperature 36.692128 Kaylie 36.961508 Kaylie [facility] Respiratory rate 20 /min 20 /min [facility] Oxygen 94 % 94 % [place] saturation in Medical Arterial blood Center by Pulse oximetry Heart rate 105 /min 105 /min [facility] Diastolic blood 61 mm[Hg] 61 mm[Hg] [facility] [place] Systolic blood 122 mm[Hg] 122 mm[Hg] [facility] Body temperature 36.200079 Kaylie 36.548324 Kaylie [facility] Respiratory rate 18 /min 18 /min [facility] Oxygen 97 % 97 % [place] saturation in Medical Arterial blood Center by Pulse oximetry Heart rate 97 /min 97 /min [facility] Diastolic blood 76 mm[Hg] 76 mm[Hg] [facility] [place] Systolic blood 132 mm[Hg] 132 mm[Hg] [facility] Body temperature 36.443660 Kaylie 36.019756 Kaylie [facility] Respiratory rate 17 /min 17 /min [facility] Oxygen 98 % 98 % [place] saturation in Medical Arterial blood Center by Pulse oximetry Heart rate 75 /min 75 /min [facility] Diastolic blood 35 mm[Hg] 35 mm[Hg] [facility] Systolic blood 139 mm[Hg] 139 mm[Hg] [facility] Body temperature 36.675417 Kaylie 36.031506 Kaylie [facility] Respiratory rate 17 /min 17 /min [facility] Oxygen 98 % 98 % [place] saturation in Medical Arterial blood Center by Pulse oximetry Heart rate 81 /min 81 /min [facility] Diastolic blood 83 mm[Hg] 83 mm[Hg] [facility] pressure Medical Center Systolic blood 135 mm[Hg] 135 mm[Hg] [facility] Body temperature 36.748195 Kaylie 36.711981 Kaylie [facility] Respiratory rate 17 /min 17 /min [facility] Oxygen 97 % 97 % [facility] saturation in Medical Arterial blood Center by Pulse oximetry Heart rate 87 /min 87 /min [facility] Diastolic blood 57 mm[Hg] 57 mm[Hg] [facility] pressure Medical Center Systolic blood 92 mm[Hg] 92 mm[Hg] [facility] Body temperature 36.555048 Kaylie 36.903592 Kaylie [facility] Respiratory rate 17 /min 17 /min [facility] Oxygen 98 % 98 % [facility] saturation in Medical Arterial blood Center by Pulse oximetry Heart rate 80 /min 80 /min [facility] Diastolic blood 78 mm[Hg] 78 mm[Hg] [facility] Systolic blood 123 mm[Hg] 123 mm[Hg] [facility] Body weight 95.721184 kg 95.465030 kg [facility] [place] Body temperature 36.180676 Kaylie 36.811637 Kaylie [facility] Respiratory rate 17 /min 17 /min [facility] Oxygen 96 % 96 % [facility] saturation in Medical Arterial blood Center by Pulse oximetry Heart rate 90 /min 90 /min [facility] Body height 177.474094 cm 177.636619 cm [facility] Diastolic blood 73 mm[Hg] 73 mm[Hg] [facility] Systolic blood 132 mm[Hg] 132 mm[Hg] [facility] Body mass index 30.1 kg/m2 30.1 kg/m2 [facility] (BMI) [Ratio] Medical Center Body temperature 36.104974 Kaylie 36.922944 Kaylie [facility] Respiratory rate 18 /min 18 /min [facility] Heart rate 88 /min 88 /min [facility] Diastolic blood 71 mm[Hg] 71 mm[Hg] [facility] pressure Medical Center Systolic blood 147 mm[Hg] 147 mm[Hg] [facility] Body temperature 36.943142 Kaylie 36.977671 Kaylie [facility] Respiratory rate 20 /min 20 /min [facility] Heart rate 86 /min 86 /min [facility] Diastolic blood 89 mm[Hg] 89 mm[Hg] [facility] Systolic blood 145 mm[Hg] 145 mm[Hg] [facility] Body weight 114.422076 kg 114.691641 kg [facility] Body height 177.386808 cm 177.152523 cm [facility] Body mass index 36.06 kg/m2 36.06 kg/m2 [facility] (BMI) [Ratio] Medical Center Body temperature 37.938781 Kaylie 37.834636 Kaylie [facility] Respiratory rate 18 /min 18 /min [facility] Heart rate 89 /min 89 /min [facility] Diastolic blood 73 mm[Hg] 73 mm[Hg] [facility] [place] Systolic blood 120 mm[Hg] 120 mm[Hg] [facility] Body temperature 37.230879 Kaylie 37.057219 Kaylie [facility] Respiratory rate 18 /min 18 /min [facility] Heart rate 90 /min 90 /min [facility] Diastolic blood 107 mm[Hg] 107 mm[Hg] [facility] [place] Systolic blood 160 mm[Hg] 160 mm[Hg] [facility] Body temperature 37.238471 Kaylie 37.502439 Kaylie [facility] Respiratory rate 18 /min 18 /min [facility] Heart rate 80 /min 80 /min [facility] Diastolic blood 68 mm[Hg] 68 mm[Hg] [facility] Systolic blood 128 mm[Hg] 128 mm[Hg] [facility] Body weight 114.743982 kg 114.814559 kg [facility] Body height 177.831089 cm 177.224392 cm [facility] Body mass index 36.06 kg/m2 36.06 kg/m2 [facility] (BMI) [Ratio] Medical Center Oxygen 95 % 95 % [facility] saturation in [facility] Arterial blood Center by Pulse oximetry Body weight 114.654918 kg 114.773621 kg [facility] Measured Medical Center Body height 177.163953 cm 177.732913 cm [facility] Body mass index 36.06 kg/m2 36.06 kg/m2 [facility] (BMI) [Ratio] Medical Center Oxygen 95 % 95 % [facility] saturation in [facility] Arterial blood Center by Pulse oximetry Oxygen 95 % 95 % [facility] saturation in [facility] Arterial blood Center by Pulse oximetry Body height 177.873907 cm 177.530896 cm [facility] Body mass index 36.06 kg/m2 36.06 kg/m2 [facility] (BMI) [Ratio] Medical Center Body weight 114.818194 kg 114.581807 kg [facility] Measured [facility] Body weight 114.322760 kg 114.736016 kg [facility] Measured [facility] Center Body height 177.545741 cm 177.147032 cm [facility] Body mass index 36.06 kg/m2 36.06 kg/m2 [facility] (BMI) [Ratio] Medical Center Diastolic blood 86 mm[Hg] 86 mm[Hg] [facility] Systolic blood 146 mm[Hg] 146 mm[Hg] [facility] Body temperature 37.047443 Kaylie 37.503842 Kaylie [facility] Body temperature 37.515124 Kaylie 37.764546 Kaylie [facility] Respiratory rate 18 /min 18 /min [facility] Heart rate 94 /min 94 /min [facility] Diastolic blood 87 mm[Hg] 87 mm[Hg] [facility] Systolic blood 151 mm[Hg] 151 mm[Hg] [facility] Body weight 114.999193 kg 114.459575 kg [facility] Measured [facility] Center Body height 177.598069 cm 177.532015 cm [facility] Body mass index 36.06 kg/m2 36.06 kg/m2 [facility] (BMI[facility] [Ratio] Medical Center Body weight 114.841311 kg 114.628829 kg [facility] Measured [facility] Body height 177.337409 cm 177.471111 cm [facility] Body mass index 36.06 kg/m2 36.06 kg/m2 [facility] (BMI) [Ratio] Medical Center Body weight 114.135746 kg 114.854310 kg [facility] Body temperature 37.420849 Kaylie 37.303919 Kaylie [facility] Body temperature 36.262468 Kaylie 36.336844 Kaylie [facility] Respiratory rate 18 /min 18 /min [facility] Respiratory rate 17 /min 17 /min [facility] Heart rate 84 /min 84 /min [facility] Heart rate 78 /min 78 /min [facility] Body height 177.694083 cm 177.906080 cm [facility] Diastolic blood 96 mm[Hg] 96 mm[Hg] [facility] pressure Medical Center Systolic blood 176 mm[Hg] 176 mm[Hg] [facility] Diastolic blood 96 mm[Hg] 96 mm[Hg] [facility] Systolic blood 149 mm[Hg] 149 mm[Hg] [facility] Body mass index 36.06 kg/m2 36.06 kg/m2 [facility] (BMI) [Ratio] Medical Center Oxygen 99 % 99 % [place] saturation in Medical Arterial blood Center by Pulse oximetry Body temperature 36.786349 Kaylie 36.058010 Kaylie [facility] Respiratory rate 18 /min 18 /min [facility] Heart rate 80 /min 80 /min [facility] Diastolic blood 99 mm[Hg] 99 mm[Hg] [facility] Systolic blood 149 mm[Hg] 149 mm[Hg] [facility] Oxygen 99 % 99 % [place] saturation in Medical Arterial blood Center by Pulse oximetry Systolic blood 144 mm[Hg] 144 mm[Hg] [facility] Body temperature 36.474707 Kaylie 36.321294 Kaylie [facility] Respiratory rate 17 /min 17 /min [facility] Oxygen 98 % 98 % [place] saturation in Medical Arterial blood Center by Pulse oximetry Heart rate 78 /min 78 /min [facility] Diastolic blood 94 mm[Hg] 94 mm[Hg] [facility] Center Respiratory rate 20 /min 20 /min [facility] Oxygen 96 % 96 % [place] saturation in Medical Arterial blood Center by Pulse oximetry Heart rate 88 /min 88 /min [facility] Oxygen 97 % 97 % [place] saturation in Medical Arterial blood Center by Pulse oximetry Body temperature 36.308399 Kaylie 36.808076 Kaylie [facility] Respiratory rate 18 /min 18 /min [facility] Oxygen 98 % 98 % [place] saturation in Medical Arterial blood Center by Pulse oximetry Heart rate 87 /min 87 /min [facility] Diastolic blood 77 mm[Hg] 77 mm[Hg] [facility] [place] Systolic blood 112 mm[Hg] 112 mm[Hg] [facility] Body temperature 36.638935 Kaylie 36.757459 Kaylie [facility] Respiratory rate 17 /min 17 /min [facility] Oxygen 98 % 98 % [place] saturation in Medical Arterial blood Center by Pulse oximetry Heart rate 81 /min 81 /min [facility] Diastolic blood 67 mm[Hg] 67 mm[Hg] [facility] [place] Systolic blood 132 mm[Hg] 132 mm[Hg] [facility] Body temperature 37.187705 Kaylie 37.368595 Kaylie [facility] Respiratory rate 16 /min 16 /min [facility] Oxygen 98 % 98 % [place] saturation in Medical Arterial blood Center by Pulse oximetry Heart rate 78 /min 78 /min [facility] Diastolic blood 65 mm[Hg] 65 mm[Hg] [facility] [place] Systolic blood 136 mm[Hg] 136 mm[Hg] [facility] Body temperature 36.306040 Kaylie 36.623896 Kaylie [facility] Respiratory rate 17 /min 17 /min [facility] Oxygen 96 % 96 % [place] saturation in Medical Arterial blood Center by Pulse oximetry Heart rate 86 /min 86 /min [facility] Diastolic blood 73 mm[Hg] 73 mm[Hg] [facility] Systolic blood 142 mm[Hg] 142 mm[Hg] [facility] Body temperature 36.811734 Kaylie 36.596467 Kaylie [facility] Respiratory rate 17 /min 17 /min [facility] Heart rate 79 /min 79 /min [facility] Diastolic blood 87 mm[Hg] 87 mm[Hg] [facility] Systolic blood 138 mm[Hg] 138 mm[Hg] [facility] Body temperature 37.117158 Kaylie 37.106360 Kaylie [facility] Respiratory rate 17 /min 17 /min [facility] Heart rate 99 /min 99 /min [facility] Diastolic blood 99 mm[Hg] 99 mm[Hg] [facility] pressure Medical Center Systolic blood 147 mm[Hg] 147 mm[Hg] [facility] Oxygen 97 % 97 % [place] saturation in Medical Arterial blood Center by Pulse oximetry Body temperature 36.068728 Kaylie 36.840343 Kaylie [facility] Respiratory rate 18 /min 18 /min [facility] Oxygen 96 % 96 % [place] saturation in Medical Arterial blood Center by Pulse oximetry Heart rate 78 /min 78 /min [facility] Diastolic blood 78 mm[Hg] 78 mm[Hg] [facility] pressure Medical Center Systolic blood 138 mm[Hg] 138 mm[Hg] [facility] [place] Body temperature 35.909653 Kaylie 35.746233 Kaylie [facility] Respiratory rate 17 /min 17 /min [facility] Oxygen 98 % 98 % [place] saturation in Medical Arterial blood Center by Pulse oximetry Heart rate 77 /min 77 /min [facility] Diastolic blood 79 mm[Hg] 79 mm[Hg] [facility] [place] Systolic blood 143 mm[Hg] 143 mm[Hg] [facility] Body temperature 36.981357 Kaylie 36.062620 Kaylie [facility] Respiratory rate 16 /min 16 /min [facility] Heart rate 81 /min 81 /min [facility] Diastolic blood 76 mm[Hg] 76 mm[Hg] [facility] Systolic blood 138 mm[Hg] 138 mm[Hg] [facility] Body temperature 36.436376 Kaylie 36.196654 Kaylie [facility] Respiratory rate 17 /min 17 /min [facility] Oxygen 97 % 97 % [place] saturation in Medical Arterial blood Center by Pulse oximetry Heart rate 85 /min 85 /min [facility] Diastolic blood 67 mm[Hg] 67 mm[Hg] [facility] Systolic blood 132 mm[Hg] 132 mm[Hg] [facility] Body temperature 36.815361 Kaylie 36.897744 Kaylie [facility] Respiratory rate 17 /min 17 /min [facility] Oxygen 94 % 94 % [facility] saturation in Medical Arterial blood Center by Pulse oximetry Heart rate 70 /min 70 /min [facility] Diastolic blood 72 mm[Hg] 72 mm[Hg] [facility] Systolic blood 125 mm[Hg] 125 mm[Hg] [facility] Body temperature 36.081284 Kaylie 36.243776 Kaylie [facility] Respiratory rate 18 /min 18 /min [facility] Heart rate 88 /min 88 /min [facility] Diastolic blood 69 mm[Hg] 69 mm[Hg] [facility] Systolic blood 134 mm[Hg] 134 mm[Hg] [facility] Body temperature 36.297991 Kaylie 36.626628 Kaylie [facility] Respiratory rate 19 /min 19 /min [facility] Oxygen 96 % 96 % [facility] saturation in Medical Arterial blood Center by Pulse oximetry Heart rate 87 /min 87 /min [facility] Diastolic blood 71 mm[Hg] 71 mm[Hg] [facility] Systolic blood 123 mm[Hg] 123 mm[Hg] [facility] Body weight 104.514877 kg 104.480804 kg [facility] Body temperature 36.843022 Kaylie 36.948278 Kaylie [facility] Respiratory rate 17 /min 17 /min [facility] Oxygen 95 % 95 % [facility] saturation in Medical Arterial blood Center by Pulse oximetry Heart rate 89 /min 89 /min [facility] Body height 177.077628 cm 177.933092 cm [facility] Diastolic blood 69 mm[Hg] 69 mm[Hg] [facility] Center Systolic blood 127 mm[Hg] 127 mm[Hg] [facility] Body mass index 33.0 kg/m2 33.0 kg/m2 [facility] (BMI) [Ratio] Medical Center Body temperature 36.308729 Kaylie 36.390453 Kaylie [facility] Respiratory rate 19 /min 19 /min [facility] Heart rate 81 /min 81 /min [facility] Diastolic blood 88 mm[Hg] 88 mm[Hg] [facility] pressure Medical [place] Systolic blood 136 mm[Hg] 136 mm[Hg] [facility] Body temperature 36.949129 Kaylie 36.680342 Kaylie [facility] Respiratory rate 18 /min 18 /min [facility] Heart rate 92 /min 92 /min [facility] Diastolic blood 98 mm[Hg] 98 mm[Hg] [facility] [place] Systolic blood 148 mm[Hg] 148 mm[Hg] [facility] Body temperature 36.544919 Kaylie 36.157093 Kaylie [facility] Respiratory rate 19 /min 19 /min [facility] Oxygen 100 % 100 % [place] saturation in Medical Arterial blood Center by Pulse oximetry Heart rate 100 /min 100 /min [facility] Diastolic blood 61 mm[Hg] 61 mm[Hg] [facility] [place] Systolic blood 126 mm[Hg] 126 mm[Hg] [facility] Body temperature 36.744551 Kaylie 36.593316 Kaylie [facility] Respiratory rate 17 /min 17 /min [facility] Oxygen 96 % 96 % [place] saturation in Medical Arterial blood Center by Pulse oximetry Heart rate 78 /min 78 /min [facility] Diastolic blood 89 mm[Hg] 89 mm[Hg] [facility] Systolic blood 146 mm[Hg] 146 mm[Hg] [facility] Body temperature 36.727171 Kaylie 36.503838 Kaylie [facility] Respiratory rate 17 /min 17 /min [facility] Oxygen 98 % 98 % [place] saturation in Medical Arterial blood Center by Pulse oximetry Heart rate 90 /min 90 /min [facility] Diastolic blood 63 mm[Hg] 63 mm[Hg] [facility] [place] Systolic blood 145 mm[Hg] 145 mm[Hg] [facility] Respiratory rate 18 /min 18 /min [facility] Oxygen 99 % 99 % [place] saturation in Medical Arterial blood Center by Pulse oximetry Heart rate 78 /min 78 /min [facility] Diastolic blood 84 mm[Hg] 84 mm[Hg] [facility] pressure [facility] Center Systolic blood 132 mm[Hg] 132 mm[Hg] [facility] Body temperature 36.139449 Kaylie 36.622032 Kaylie [facility] Body weight 110.160988 kg 110.097978 kg [facility] Body temperature 36.828572 Kaylie 36.508871 Kaylie [facility] Respiratory rate 18 /min 18 /min [facility] Oxygen 98 % 98 % [place] saturation in Medical Arterial blood Center by Pulse oximetry Heart rate 89 /min 89 /min [facility] Body height 180.611527 cm 180.646963 cm [facility] Diastolic blood 88 mm[Hg] 88 mm[Hg] [facility] Systolic blood 154 mm[Hg] 154 mm[Hg] [facility] Body mass index 33.8 kg/m2 33.8 kg/m2 [facility] (BMI) [Ratio] Medical Center Body temperature 36.196045 Kaylie 36.043952 Kaylie [facility] Respiratory rate 17 /min 17 /min [facility] Oxygen 99 % 99 % [place] saturation in Medical Arterial blood Center by Pulse oximetry Heart rate 81 /min 81 /min [facility] Diastolic blood 71 mm[Hg] 71 mm[Hg] [facility] Systolic blood 118 mm[Hg] 118 mm[Hg] [facility] Body temperature 36.845445 Kaylie 36.785328 Kaylie [facility] Respiratory rate 18 /min 18 /min [facility] Oxygen 99 % 99 % [place] saturation in Medical Arterial blood Center by Pulse oximetry Heart rate 78 /min 78 /min [facility] Diastolic blood 77 mm[Hg] 77 mm[Hg] [facility] pressure [facility] Center Systolic blood 129 mm[Hg] 129 mm[Hg] [facility] Body temperature 37.844184 Kaylie 37.943876 Kaylie [facility] Respiratory rate 17 /min 17 /min [facility] Oxygen 97 % 97 % [facility] [place] saturation in [facility] Arter[facility] blood Center by Pulse oximetry Heart rate 79 /min 79 /min [facility] Diastolic blood 75 mm[Hg] 75 mm[Hg] [facility] pressure [facility] Center Systolic blood 136 mm[Hg] 136 mm[Hg] [facility] Body temperature 36.328796 Kaylie 36.383699 Kaylie [facility] Respiratory rate 17 /min 17 /min [facility] Oxygen 98 % 98 % [facility] [place] saturation in Medical Arterial blood Center by Pulse oximetry Heart rate 88 /min 88 /min [facility] Diastolic blood 81 mm[Hg] 81 mm[Hg] [facility] Systolic blood 159 mm[Hg] 159 mm[Hg] [facility] [place] Body temperature 36.076949 Kaylie 36.389238 Kaylie [facility] Respiratory rate 18 /min 18 /min [facility] Oxygen 97 % 97 % [facility] [place] saturation in Medical Arterial blood Center by Pulse oximetry Heart rate 88 /min 88 /min [facility] Diastolic blood 75 mm[Hg] 75 mm[Hg] [facility] Systolic blood 145 mm[Hg] 145 mm[Hg] [facility] Body temperature 36.016286 Kaylie 36.430768 Kaylie [facility] Respiratory rate 17 /min 17 /min [facility] Oxygen 97 % 97 % [facility] [place] saturation in Medical Arterial blood Center by Pulse oximetry Heart rate 90 /min 90 /min [facility] Diastolic blood 78 mm[Hg] 78 mm[Hg] [facility] Systolic blood 160 mm[Hg] 160 mm[Hg] [facility] Body temperature 37.764439 Kaylie 37.846402 Kaylie [facility] Respiratory rate 18 /min 18 /min [facility] Oxygen 95 % 95 % [facility] [place] saturation in Medical Arterial blood Center by Pulse oximetry Heart rate 93 /min 93 /min [facility] Diastolic blood 80 mm[Hg] 80 mm[Hg] [facility] Systolic blood 198 mm[Hg] 198 mm[Hg] [facility] Body temperature 37.012957 Kaylie 37.480390 Kaylie [facility] Respiratory rate 18 /min 18 /min [facility] Oxygen 95 % 95 % [facility] [place] saturation in Medical Arterial blood Center by Pulse oximetry Heart rate 92 /min 92 /min [facility] Diastolic blood 71 mm[Hg] 71 mm[Hg] [facility] pressure Medical Center Systolic blood 139 mm[Hg] 139 mm[Hg] [facility] [place] Body temperature 36.660193 Kaylie 36.531798 Kaylie [facility] Respiratory rate 17 /min 17 /min [facility] Oxygen 98 % 98 % [facility] [place] saturation in Medical Arterial blood Center by Pulse oximetry Heart rate 89 /min 89 /min [facility] Diastolic blood 83 mm[Hg] 83 mm[Hg] [facility] [place] Systolic blood 159 mm[Hg] 159 mm[Hg] [facility] [place] Body temperature 36.616743 Kaylie 36.947547 Kaylie [facility] Respiratory rate 18 /min 18 /min [facility] Oxygen 97 % 97 % [facility] [place] saturation in Medical Arterial blood Center by Pulse oximetry Heart rate 81 /min 81 /min [facility] Diastolic blood 74 mm[Hg] 74 mm[Hg] [facility] [place] Systolic blood 117 mm[Hg] 117 mm[Hg] [facility] Body temperature 37.954287 Kaylie 37.739125 Kaylie [facility] Respiratory rate 19 /min 19 /min [facility] Oxygen 98 % 98 % [facility] [place] saturation in Medical Arterial blood Center by Pulse oximetry Heart rate 88 /min 88 /min [facility] Diastolic blood 87 mm[Hg] 87 mm[Hg] [facility] Systolic blood 149 mm[Hg] 149 mm[Hg] [facility] Body temperature 37.708721 Kaylie 37.221074 Kaylie [facility] Respiratory rate 20 /min 20 /min [facility] Oxygen 97 % 97 % [facility] [place] saturation in Medical Arterial blood Center by Pulse oximetry Heart rate 92 /min 92 /min [facility] Diastolic blood 85 mm[Hg] 85 mm[Hg] [facility] [place] Systolic blood 152 mm[Hg] 152 mm[Hg] [facility] [place] Body temperature 36.503452 Kaylie 36.024295 Kaylie [facility] Respiratory rate 18 /min 18 /min [facility] Oxygen 100 % 100 % [facility] [place] saturation in Medical Arterial blood Center by Pulse oximetry Heart rate 70 /min 70 /min [facility] Diastolic blood 74 mm[Hg] 74 mm[Hg] [facility] pressure Medical Center Systolic blood 129 mm[Hg] 129 mm[Hg] [facility] Body weight 99.355689 kg 99.806801 kg [facility] Measured [facility] Body temperature 36.205685 Kaylie 36.425935 Kaylie [facility] Respiratory rate 18 /min 18 /min [facility] Oxygen 98 % 98 % [facility] [place] saturation in Medical Arterial blood Center by Pulse oximetry Heart rate 78 /min 78 /min [facility] Body height 182.436126 cm 182.713770 cm [facility] Diastolic blood 74 mm[Hg] 74 mm[Hg] [facility] Systolic blood 128 mm[Hg] 128 mm[Hg] [facility] Body mass index 29.8 kg/m2 29.8 kg/m2 [facility] (BMI) [Ratio] Medical Center Body temperature 36.660205 Kaylie 36.867787 Kaylie [facility] Respiratory rate 20 /min 20 /min [facility] Oxygen 94 % 94 % [place] saturation in Medical Arterial blood Center by Pulse oximetry Heart rate 92 /min 92 /min [facility] Diastolic blood 87 mm[Hg] 87 mm[Hg] [facility] Systolic blood 143 mm[Hg] 143 mm[Hg] [facility] Body temperature 36.265500 Kaylie 36.506849 Kaylie [facility] Respiratory rate 18 /min 18 /min [facility] Oxygen 96 % 96 % [place] saturation in Medical Arterial blood Center by Pulse oximetry Heart rate 87 /min 87 /min [facility] Diastolic blood 84 mm[Hg] 84 mm[Hg] [facility] pressure [facility] Center Systolic blood 136 mm[Hg] 136 mm[Hg] [facility] Body temperature 37.008036 Kaylie 37.109195 Kaylie [facility] Respiratory rate 18 /min 18 /min [facility] Oxygen 96 % 96 % [place] saturation in Medical Arterial blood Center by Pulse oximetry Heart rate 90 /min 90 /min [facility] Diastolic blood 63 mm[Hg] 63 mm[Hg] [facility] pressure [facility] Center Systolic blood 136 mm[Hg] 136 mm[Hg] [facility] [place] Body temperature 36.999474 Kaylie 36.032142 Kaylie [facility] Respiratory rate 18 /min 18 /min [facility] Oxygen 96 % 96 % [place] saturation in Medical Arterial blood Center by Pulse oximetry Heart rate 109 /min 109 /min [facility] Diastolic blood 71 mm[Hg] 71 mm[Hg] [facility] Systolic blood 130 mm[Hg] 130 mm[Hg] [facility] Body temperature 36.088512 Kaylie 36.818138 Kaylie [facility] Respiratory rate 18 /min 18 /min [facility] Heart rate 132 /min 132 /min [facility] Diastolic blood 76 mm[Hg] 76 mm[Hg] [facility] Systolic blood 137 mm[Hg] 137 mm[Hg] [facility] Body temperature 36.588271 Kaylie 36.431898 Kaylie [facility] Respiratory rate 17 /min 17 /min [facility] Oxygen 97 % 97 % [place] saturation in Medical Arterial blood Center by Pulse oximetry Heart rate 104 /min 104 /min [facility] Diastolic blood 81 mm[Hg] 81 mm[Hg] [facility] [place] Systolic blood 143 mm[Hg] 143 mm[Hg] [facility] [place] Body temperature 36.725119 Kaylie 36.696302 Kaylie [facility] Respiratory rate 19 /min 19 /min [facility] Oxygen 95 % 95 % [place] saturation in Medical Arterial blood Center by Pulse oximetry Heart rate 92 /min 92 /min [facility] Diastolic blood 96 mm[Hg] 96 mm[Hg] [facility] Systolic blood 155 mm[Hg] 155 mm[Hg] [facility] Body temperature 37.861001 Kaylie 37.513611 Kaylie [facility] Respiratory rate 18 /min 18 /min [facility] Oxygen 95 % 95 % [place] saturation in Medical Arterial blood Center by Pulse oximetry Heart rate 104 /min 104 /min [facility] Diastolic blood 78 mm[Hg] 78 mm[Hg] [facility] pressure [facility] Center Systolic blood 155 mm[Hg] 155 mm[Hg] [facility] Body temperature 36.807344 Kaylie 36.758490 Kaylie [facility] Respiratory rate 17 /min 17 /min [facility] Heart rate 95 /min 95 /min [facility] Diastolic blood 93 mm[Hg] 93 mm[Hg] [facility] Systolic blood 156 mm[Hg] 156 mm[Hg] [facility] Body temperature 36.270721 Kaylie 36.628465 Kaylie [facility] Respiratory rate 18 /min 18 /min [facility] Oxygen 98 % 98 % [facility] [place] saturation in Medical Arterial blood Center by Pulse oximetry Heart rate 98 /min 98 /min [facility] Diastolic blood 94 mm[Hg] 94 mm[Hg] [facility] [place] Systolic blood 156 mm[Hg] 156 mm[Hg] [facility] Body temperature 36.855004 Kaylie 36.946843 Kaylie [facility] Respiratory rate 18 /min 18 /min [facility] Oxygen 98 % 98 % [place] saturation in Medical Arterial blood Center by Pulse oximetry Heart rate 91 /min 91 /min [facility] Diastolic blood 96 mm[Hg] 96 mm[Hg] [facility] [place] Systolic blood 146 mm[Hg] 146 mm[Hg] [facility] Respiratory rate 16 /min 16 /min [facility] Oxygen 95 % 95 % [place] saturation in Medical Arterial blood Center by Pulse oximetry Heart rate 101 /min 101 /min [facility] Diastolic blood 93 mm[Hg] 93 mm[Hg] [facility] Systolic blood 152 mm[Hg] 152 mm[Hg] [facility] Body temperature 36.221923 Kaylie 36.246082 Kaylie [facility] Respiratory rate 18 /min 18 /min [facility] Oxygen 96 % 96 % [place] saturation in Medical Arterial blood Center by Pulse oximetry Heart rate 99 /min 99 /min [facility] Diastolic blood 95 mm[Hg] 95 mm[Hg] [facility] [place] Systolic blood 182 mm[Hg] 182 mm[Hg] [facility] Body temperature 37.456501 Kaylie 37.605225 Kaylie [facility] Respiratory rate 16 /min 16 /min [facility] Oxygen 95 % 95 % [place] saturation in Medical Arterial blood Center by Pulse oximetry Heart rate 105 /min 105 /min [facility] Diastolic blood 102 mm[Hg] 102 mm[Hg] [facility] Systolic blood 154 mm[Hg] 154 mm[Hg] [facility] Body temperature 37.896924 Kaylie 37.343123 Kaylie [facility] Respiratory rate 19 /min 19 /min [facility] Oxygen 95 % 95 % [place] saturation in Medical Arterial blood Center by Pulse oximetry Heart rate 99 /min 99 /min [facility] Diastolic blood 99 mm[Hg] 99 mm[Hg] [facility] [place] Systolic blood 175 mm[Hg] 175 mm[Hg] [facility] Body temperature 36.946003 Kaylie 36.823118 Kaylie [facility] Respiratory rate 19 /min 19 /min [facility] Oxygen 97 % 97 % [place] saturation in Medical Arterial blood Center by Pulse oximetry Heart rate 89 /min 89 /min [facility] Diastolic blood 93 mm[Hg] 93 mm[Hg] [facility] [place] Systolic blood 155 mm[Hg] 155 mm[Hg] [facility] Body temperature 36.331964 Kaylie 36.184560 Kaylie [facility] Body temperature 36.377863 Kaylie 36.944264 Kaylie [facility] Respiratory rate 18 /min 18 /min [facility] Oxygen 97 % 97 % [place] saturation in Medical Arterial blood Center by Pulse oximetry Heart rate 76 /min 76 /min [facility] Diastolic blood 72 mm[Hg] 72 mm[Hg] [facility] [place] Systolic blood 138 mm[Hg] 138 mm[Hg] [facility] Body temperature 36.859875 Kaylie 36.391807 Kaylie [facility] Respiratory rate 17 /min 17 /min [facility] Oxygen 96 % 96 % [facility] [place] saturation in Medical Arterial blood Center by Pulse oximetry Heart rate 78 /min 78 /min [facility] Diastolic blood 69 mm[Hg] 69 mm[Hg] [facility] pressure [facility] Center Systolic blood 142 mm[Hg] 142 mm[Hg] [facility] [place] Body temperature 36.974003 Kaylie 36.374940 Kaylie [facility] Respiratory rate 18 /min 18 /min [facility] Oxygen 97 % 97 % [place] saturation in Medical Arterial blood Center by Pulse oximetry Heart rate 83 /min 83 /min [facility] Diastolic blood 81 mm[Hg] 81 mm[Hg] [facility] [place] Systolic blood 159 mm[Hg] 159 mm[Hg] [facility] Body temperature 36.903643 Kaylie 36.168854 Kaylie [facility] Respiratory rate 18 /min 18 /min [facility] Oxygen 94 % 94 % [place] saturation in Medical Arterial blood Center by Pulse oximetry Heart rate 89 /min 89 /min [facility] Diastolic blood 89 mm[Hg] 89 mm[Hg] [facility] [place] Systolic blood 139 mm[Hg] 139 mm[Hg] [facility] [place] Body temperature 36.391279 Kaylie 36.437820 Kaylie [facility] Respiratory rate 19 /min 19 /min [facility] Oxygen 95 % 95 % [place] saturation in Medical Arterial blood Center by Pulse oximetry Heart rate 88 /min 88 /min [facility] Diastolic blood 82 mm[Hg] 82 mm[Hg] [facility] Systolic blood 156 mm[Hg] 156 mm[Hg] [facility] [place] Body temperature 36.887492 Kaylie 36.940225 Kaylie [facility] Respiratory rate 18 /min 18 /min [facility] Oxygen 98 % 98 % [place] saturation in Medical Arterial blood Center by Pulse oximetry Heart rate 74 /min 74 /min [facility] Diastolic blood 78 mm[Hg] 78 mm[Hg] [facility] Systolic blood 128 mm[Hg] 128 mm[Hg] [facility] Body temperature 36.771207 Kaylie 36.734110 Kaylie [facility] Respiratory rate 17 /min 17 /min [facility] Oxygen 99 % 99 % [place] saturation in Medical Arterial blood Center by Pulse oximetry Heart rate 80 /min 80 /min [facility] Diastolic blood 92 mm[Hg] 92 mm[Hg] [facility] pressure [facility] Center Systolic blood 144 mm[Hg] 144 mm[Hg] [facility] Body weight 88.549293 kg 88.638685 kg [facility] Measured [facility] Body temperature 36.011155 Kaylie 36.388552 Kaylie [facility] Respiratory rate 17 /min 17 /min [facility] Oxygen 99 % 99 % [place] saturation in Medical Arterial blood Center by Pulse oximetry Heart rate 78 /min 78 /min [facility] Body height 177.129139 cm 177.995898 cm [facility] Diastolic blood 88 mm[Hg] 88 mm[Hg] [facility] pressure [facility] Center Systolic blood 142 mm[Hg] 142 mm[Hg] [facility] Body mass index 27.8 kg/m2 27.8 kg/m2 [facility] (BMI) [Ratio] Medical Center Body temperature 37.787566 Kaylie 37.496573 Kaylie [facility] Respiratory rate 18 /min 18 /min [facility] Oxygen 96 % 96 % [place] saturation in Medical Arterial blood Center by Pulse oximetry Heart rate 97 /min 97 /min [facility] Diastolic blood 95 mm[Hg] 95 mm[Hg] [facility] pressure [facility] Center Systolic blood 157 mm[Hg] 157 mm[Hg] [facility] Body temperature 37.758756 Kaylie 37.589670 Kaylie [facility] Respiratory rate 18 /min 18 /min [facility] Oxygen 95 % 95 % [place] saturation in Medical Arterial blood Center by Pulse oximetry Heart rate 99 /min 99 /min [facility] Diastolic blood 81 mm[Hg] 81 mm[Hg] [facility] pressure [facility] Center Systolic blood 121 mm[Hg] 121 mm[Hg] [facility] Body temperature 36.300232 Kaylie 36.514051 Kaylie [facility] Respiratory rate 18 /min 18 /min [facility] Oxygen 97 % 97 % [place] saturation in Medical Arterial blood Center by Pulse oximetry Heart rate 89 /min 89 /min [facility] Diastolic blood 70 mm[Hg] 70 mm[Hg] [facility] pressure [facility] Center Systolic blood 126 mm[Hg] 126 mm[Hg] [facility] Body weight 104.203608 kg 104.473566 kg [facility] Body temperature 36.858547 Kaylie 36.212017 Kaylie [facility] Respiratory rate 17 /min 17 /min [facility] Oxygen 98 % 98 % [facility] saturation in Medical Arterial blood Center by Pulse oximetry Heart rate 98 /min 98 /min [facility] Body height 177.503690 cm 177.696087 cm [facility] Diastolic blood 60 mm[Hg] 60 mm[Hg] [facility] pressure [facility] Center Systolic blood 116 mm[Hg] 116 mm[Hg] [facility] Body mass index 33.0 kg/m2 33.0 kg/m2 [facility] (BMI) [Ratio] Medical Center Body temperature 36.326967 Kaylie 36.382123 Kaylie [facility] Respiratory rate 17 /min 17 /min [facility] Oxygen 98 % 98 % [facility] saturation in Medical Arterial blood Center by Pulse oximetry Heart rate 84 /min 84 /min [facility] Diastolic blood 91 mm[Hg] 91 mm[Hg] [facility] Systolic blood 153 mm[Hg] 153 mm[Hg] [facility] Body temperature 36.225690 Kaylie 36.940876 Kaylie [facility] Respiratory rate 16 /min 16 /min [facility] Heart rate 75 /min 75 /min [facility] Diastolic blood 76 mm[Hg] 76 mm[Hg] [facility] Systolic blood 136 mm[Hg] 136 mm[Hg] [facility] Body temperature 36.550516 Kaylie 36.262527 Kaylie [facility] Respiratory rate 17 /min 17 /min [facility] Oxygen 98 % 98 % [facility] saturation in Medical Arterial blood Center by Pulse oximetry Heart rate 76 /min 76 /min [facility] Diastolic blood 81 mm[Hg] 81 mm[Hg] [facility] Systolic blood 149 mm[Hg] 149 mm[Hg] [facility] Body temperature 36.341293 Kaylie 36.316358 Kaylie [facility] Respiratory rate 18 /min 18 /min [facility] Oxygen 96 % 96 % [place] saturation in Medical Arterial blood Center by Pulse oximetry Heart rate 89 /min 89 /min [facility] Diastolic blood 68 mm[Hg] 68 mm[Hg] [facility] pressure [facility] Center Systolic blood 132 mm[Hg] 132 mm[Hg] [facility] Body temperature 36.867326 Kaylie 36.590992 Kaylie [facility] Respiratory rate 18 /min 18 /min [facility] Oxygen 96 % 96 % [place] saturation in Medical Arterial blood Center by Pulse oximetry Heart rate 84 /min 84 /min [facility] Diastolic blood 71 mm[Hg] 71 mm[Hg] [facility] [place] Systolic blood 119 mm[Hg] 119 mm[Hg] [facility] Body temperature 36.811906 Kaylie 36.685310 Kaylie [facility] Respiratory rate 19 /min 19 /min [facility] Oxygen 96 % 96 % [place] saturation in Medical Arterial blood Center by Pulse oximetry Heart rate 83 /min 83 /min [facility] Diastolic blood 66 mm[Hg] 66 mm[Hg] [facility] [place] Systolic blood 123 mm[Hg] 123 mm[Hg] [facility] Body temperature 36.850051 Kaylie 36.269666 Kaylie [facility] Respiratory rate 18 /min 18 /min [facility] Oxygen 98 % 98 % [place] saturation in Medical Arterial blood Center by Pulse oximetry Heart rate 76 /min 76 /min [facility] Diastolic blood 80 mm[Hg] 80 mm[Hg] [facility] Systolic blood 115 mm[Hg] 115 mm[Hg] [facility] Body temperature 36.010671 Kaylie 36.441750 Kaylie [facility] Body temperature 36.130258 Kaylie 36.521906 Kaylie [facility] Respiratory rate 18 /min 18 /min [facility] Oxygen 96 % 96 % [place] saturation in Medical Arterial blood Center by Pulse oximetry Heart rate 88 /min 88 /min [facility] Diastolic blood 72 mm[Hg] 72 mm[Hg] [facility] Systolic blood 111 mm[Hg] 111 mm[Hg] [facility] Body temperature 36.965727 Kaylie 36.012439 Kaylie [facility] Respiratory rate 18 /min 18 /min [facility] Oxygen 96 % 96 % [place] saturation in Medical Arterial blood Center by Pulse oximetry Heart rate 87 /min 87 /min [facility] Diastolic blood 85 mm[Hg] 85 mm[Hg] [facility] [place] Systolic blood 136 mm[Hg] 136 mm[Hg] [facility] Body temperature 36.533693 Kaylie 36.907546 Kaylie [facility] Respiratory rate 17 /min 17 /min [facility] Oxygen 91 % 91 % [place] saturation in Medical Arterial blood Center by Pulse oximetry Heart rate 87 /min 87 /min [facility] Diastolic blood 97 mm[Hg] 97 mm[Hg] [facility] [place] Systolic blood 152 mm[Hg] 152 mm[Hg] [facility] Body temperature 36.333506 Kaylie 36.211636 Kaylie [facility] Respiratory rate 20 /min 20 /min [facility] Oxygen 91 % 91 % [place] saturation in Medical Arterial blood Center by Pulse oximetry Heart rate 77 /min 77 /min [facility] Diastolic blood 78 mm[Hg] 78 mm[Hg] [facility] [place] Systolic blood 140 mm[Hg] 140 mm[Hg] [facility] [place] Body weight 105.141329 kg 105.984908 kg [facility] Body temperature 37.357288 Kaylie 37.972867 Kaylie [facility] Respiratory rate 20 /min 20 /min [facility] Oxygen 92 % 92 % [place] saturation in Medical Arterial blood Center by Pulse oximetry Heart rate 89 /min 89 /min [facility] Diastolic blood 79 mm[Hg] 79 mm[Hg] [facility] [place] Systolic blood 155 mm[Hg] 155 mm[Hg] [facility] Body temperature 36.472596 Kaylie 36.191980 Kaylie [facility] Respiratory rate 16 /min 16 /min [facility] Oxygen 98 % 98 % [facility] [place] saturation in Medical Arterial blood Center by Pulse oximetry Heart rate 81 /min 81 /min [facility] Diastolic blood 73 mm[Hg] 73 mm[Hg] [facility] pressure Medical Center Systolic blood 126 mm[Hg] 126 mm[Hg] [facility] Body temperature 36.823250 Kaylie 36.888072 Kaylie [facility] Respiratory rate 17 /min 17 /min [facility] Oxygen 98 % 98 % [facility] [place] saturation in Medical Arterial blood Center by Pulse oximetry Heart rate 67 /min 67 /min [facility] Diastolic blood 63 mm[Hg] 63 mm[Hg] [facility] pressure Medical Center Systolic blood 134 mm[Hg] 134 mm[Hg] [facility] [place] Body temperature 36.062867 Kaylie 36.113470 Kaylie [facility] Respiratory rate 18 /min 18 /min [facility] Oxygen 97 % 97 % [facility] [place] saturation in Medical Arterial blood Center by Pulse oximetry Heart rate 69 /min 69 /min [facility] Diastolic blood 73 mm[Hg] 73 mm[Hg] [facility] Systolic blood 119 mm[Hg] 119 mm[Hg] [facility] [place] Body temperature 36.852491 Kaylie 36.641894 Kaylie [facility] Respiratory rate 17 /min 17 /min [facility] Oxygen 98 % 98 % [facility] [place] saturation in Medical Arterial blood Center by Pulse oximetry Heart rate 71 /min 71 /min [facility] Diastolic blood 69 mm[Hg] 69 mm[Hg] [facility] Systolic blood 127 mm[Hg] 127 mm[Hg] [facility] [place] Body temperature 36.639435 Kaylie 36.578530 Kaylie [facility] Respiratory rate 16 /min 16 /min [facility] Oxygen 100 % 100 % [facility] [place] saturation in Medical Arterial blood Center by Pulse oximetry Heart rate 74 /min 74 /min [facility] Diastolic blood 85 mm[Hg] 85 mm[Hg] [facility] pressure Medical Center Systolic blood 130 mm[Hg] 130 mm[Hg] [facility] Body temperature 37.845497 Kaylie 37.062926 Kaylie [facility] Respiratory rate 18 /min 18 /min [facility] Oxygen 95 % 95 % [facility] [place] saturation in Medical Arterial blood Center by Pulse oximetry Heart rate 77 /min 77 /min [facility] Diastolic blood 86 mm[Hg] 86 mm[Hg] [facility] Systolic blood 154 mm[Hg] 154 mm[Hg] [facility] [place] Body temperature 36.079310 Kaylie 36.787438 Kaylie [facility] Respiratory rate 18 /min 18 /min [facility] Oxygen 98 % 98 % [facility] [place] saturation in Medical Arterial blood Center by Pulse oximetry Heart rate 80 /min 80 /min [facility] Diastolic blood 90 mm[Hg] 90 mm[Hg] [facility] [place] Systolic blood 170 mm[Hg] 170 mm[Hg] [facility] [place] Body temperature 36.944340 Kaylie 36.239615 Kaylie [facility] Respiratory rate 18 /min 18 /min [facility] Oxygen 95 % 95 % [facility] [place] saturation in Medical Arterial blood Center by Pulse oximetry Heart rate 70 /min 70 /min [facility] Diastolic blood 103 mm[Hg] 103 mm[Hg] [facility] Systolic blood 166 mm[Hg] 166 mm[Hg] [facility] Body temperature 36.309101 Kaylie 36.816133 Kaylie [facility] Respiratory rate 18 /min 18 /min [facility] Oxygen 97 % 97 % [facility] [place] saturation in Medical Arterial blood Center by Pulse oximetry Heart rate 87 /min 87 /min [facility] Diastolic blood 72 mm[Hg] 72 mm[Hg] [facility] Systolic blood 138 mm[Hg] 138 mm[Hg] [facility] Body temperature 36.126424 Kaylie 36.776463 Kaylie [facility] Respiratory rate 16 /min 16 /min [facility] Oxygen 98 % 98 % [facility] [place] saturation in Medical Arterial blood Center by Pulse oximetry Heart rate 74 /min 74 /min [facility] Diastolic blood 71 mm[Hg] 71 mm[Hg] [facility] pressure Medical Center Systolic blood 146 mm[Hg] 146 mm[Hg] [facility] Body weight 102.052939 kg 102.079669 kg [facility] Body temperature 36.686851 Kaylie 36.565366 Kaylie [facility] Respiratory rate 17 /min 17 /min [facility] Oxygen 98 % 98 % [facility] [place] saturation in Medical Arterial blood Center by Pulse oximetry Heart rate 78 /min 78 /min [facility] Body height 177.003993 cm 177.590036 cm [facility] Diastolic blood 78 mm[Hg] 78 mm[Hg] [facility] Systolic blood 118 mm[Hg] 118 mm[Hg] [facility] Body mass index 32.2 kg/m2 32.2 kg/m2 [facility] (BMI) [Ratio] Medical Center Body temperature 37.526547 Kaylie 37.235467 Kaylie [facility] Respiratory rate 18 /min 18 /min [facility] Oxygen 99 % 99 % [facility] [place] saturation in Medical Arterial blood Center by Pulse oximetry Heart rate 88 /min 88 /min [facility] Diastolic blood 79 mm[Hg] 79 mm[Hg] [facility] Center Systolic blood 134 mm[Hg] 134 mm[Hg] [facility] Body temperature 37.460048 Kaylie 37.853517 Kaylie [facility] Respiratory rate 18 /min 18 /min [facility] Oxygen 95 % 95 % [facility] [place] saturation in Medical Arterial blood Center by Pulse oximetry Heart rate 82 /min 82 /min [facility] Diastolic blood 79 mm[Hg] 79 mm[Hg] [facility] Systolic blood 144 mm[Hg] 144 mm[Hg] [facility] Body temperature 37.041933 Kaylie 37.081910 Kaylie [facility] Respiratory rate 18 /min 18 /min [facility] Oxygen 95 % 95 % [facility] [place] saturation in Medical Arterial blood Center by Pulse oximetry Heart rate 86 /min 86 /min [facility] Diastolic blood 92 mm[Hg] 92 mm[Hg] [facility] Center Systolic blood 112 mm[Hg] 112 mm[Hg] [facility] Body temperature 37.702040 Kaylie 37.184225 Kaylie [facility] Respiratory rate 19 /min 19 /min [facility] Oxygen 90 % 90 % [facility] [place] saturation in Medical Arterial blood Center by Pulse oximetry Heart rate 84 /min 84 /min [facility] Diastolic blood 92 mm[Hg] 92 mm[Hg] [facility] pressure Medical Center Systolic blood 142 mm[Hg] 142 mm[Hg] [facility] Body temperature 36.376746 Kaylie 36.401340 Kaylie [facility] Respiratory rate 20 /min 20 /min [facility] Oxygen 90 % 90 % [facility] [place] saturation in Medical Arterial blood Center by Pulse oximetry Heart rate 88 /min 88 /min [facility] Diastolic blood 97 mm[Hg] 97 mm[Hg] [facility] Systolic blood 127 mm[Hg] 127 mm[Hg] [facility] Body temperature 36.485129 Kaylie 36.397874 Kaylie [facility] Respiratory rate 18 /min 18 /min [facility] Oxygen 99 % 99 % [facility] [place] saturation in Medical Arterial blood Center by Pulse oximetry Heart rate 78 /min 78 /min [facility] Diastolic blood 80 mm[Hg] 80 mm[Hg] [facility] pressure [facility] Center Systolic blood 144 mm[Hg] 144 mm[Hg] [facility] Body temperature 36.474370 Kaylie 36.471186 Kaylie [facility] Respiratory rate 18 /min 18 /min [facility] Oxygen 97 % 97 % [facility] [place] saturation in Medical Arterial blood Center by Pulse oximetry Heart rate 88 /min 88 /min [facility] Diastolic blood 76 mm[Hg] 76 mm[Hg] [facility] pressure Medical Center Systolic blood 148 mm[Hg] 148 mm[Hg] [facility] Body temperature 36.961861 Kaylie 36.138594 Kaylie [facility] Respiratory rate 19 /min 19 /min [facility] Oxygen 96 % 96 % [facility] [place] saturation in Medical Arterial blood Center by Pulse oximetry Heart rate 100 /min 100 /min [facility] Diastolic blood 68 mm[Hg] 68 mm[Hg] [facility] pressure Medical Center Systolic blood 121 mm[Hg] 121 mm[Hg] [facility] Body temperature 37.257830 Kaylie 37.445289 Kaylie [facility] Respiratory rate 17 /min 17 /min [facility] Oxygen 98 % 98 % [facility] [place] saturation in Medical Arterial blood Center by Pulse oximetry Heart rate 105 /min 105 /min [facility] Diastolic blood 65 mm[Hg] 65 mm[Hg] [facility] pressure [facility] Center Systolic blood 119 mm[Hg] 119 mm[Hg] [facility] Body temperature 36.429334 Kaylie 36.836504 Kaylie [facility] Respiratory rate 17 /min 17 /min [facility] Oxygen 98 % 98 % [facility] [place] saturation in Medical Arterial blood Center by Pulse oximetry Heart rate 100 /min 100 /min [facility] Diastolic blood 73 mm[Hg] 73 mm[Hg] [facility] pressure [facility] Center Systolic blood 121 mm[Hg] 121 mm[Hg] [facility] Body temperature 36.831489 Kaylie 36.978076 Kaylie [facility] Respiratory rate 17 /min 17 /min [facility] Oxygen 98 % 98 % [facility] [place] saturation in Medical Arterial blood Center by Pulse oximetry Heart rate 69 /min 69 /min [facility] Diastolic blood 75 mm[Hg] 75 mm[Hg] [facility] pressure Medical Center Systolic blood 129 mm[Hg] 129 mm[Hg] [facility] Body temperature 36.378039 Kaylie 36.482038 Kaylie [facility] Respiratory rate 18 /min 18 /min [facility] Oxygen 98 % 98 % [place] saturation in Medical Arterial blood Center by Pulse oximetry Heart rate 82 /min 82 /min [facility] Diastolic blood 73 mm[Hg] 73 mm[Hg] [facility] pressure Medical Center Systolic blood 128 mm[Hg] 128 mm[Hg] [facility] pressure Medical Center Body temperature 36.173941 Kaylie 36.726140 Kaylie [facility] Respiratory rate 18 /min 18 /min [facility] Oxygen 96 % 96 % [facility] [place] saturation in Medical Arterial blood Center by Pulse oximetry Heart rate 81 /min 81 /min [facility] Diastolic blood 78 mm[Hg] 78 mm[Hg] [facility] pressure Medical Center Systolic blood 126 mm[Hg] 126 mm[Hg] [facility] [place] Body temperature 36.641476 Kaylie 36.224604 Kaylie [facility] Respiratory rate 18 /min 18 /min [facility] Oxygen 97 % 97 % [place] saturation in Medical Arterial blood Center by Pulse oximetry Heart rate 79 /min 79 /min [facility] Diastolic blood 72 mm[Hg] 72 mm[Hg] [facility] pressure [facility] Center Systolic blood 129 mm[Hg] 129 mm[Hg] [facility] [place] Body temperature 36.791821 Kaylie 36.007510 Kaylie [facility] Respiratory rate 17 /min 17 /min [facility] Oxygen 98 % 98 % [place] saturation in Medical Arterial blood Center by Pulse oximetry Heart rate 88 /min 88 /min [facility] Diastolic blood 71 mm[Hg] 71 mm[Hg] [facility] Systolic blood 126 mm[Hg] 126 mm[Hg] [facility] Body temperature 36.073042 Kaylie 36.544045 Kaylie [facility] Respiratory rate 18 /min 18 /min [facility] Oxygen 98 % 98 % [facility] [place] saturation in Medical Arterial blood Center by Pulse oximetry Heart rate 76 /min 76 /min [facility] Diastolic blood 72 mm[Hg] 72 mm[Hg] [facility] pressure Medical Center Systolic blood 126 mm[Hg] 126 mm[Hg] [facility] Systolic blood 132 mm[Hg] 132 mm[Hg] [facility] [place] Body temperature 36.812244 Kaylie 36.561798 Kaylie [facility] Respiratory rate 17 /min 17 /min [facility] Oxygen 97 % 97 % [place] saturation in Medical Arterial blood Center by Pulse oximetry Heart rate 90 /min 90 /min [facility] Diastolic blood 85 mm[Hg] 85 mm[Hg] [facility] Body temperature 37.678818 Kaylie 37.364862 Kaylie [facility] Respiratory rate 18 /min 18 /min [facility] Oxygen 95 % 95 % [place] saturation in Medical Arterial blood Center by Pulse oximetry Heart rate 95 /min 95 /min [facility] Diastolic blood 96 mm[Hg] 96 mm[Hg] [facility] Systolic blood 147 mm[Hg] 147 mm[Hg] [facility] Body temperature 36.643729 Kaylie 36.098033 Kaylie [facility] Respiratory rate 17 /min 17 /min [facility] Oxygen 95 % 95 % [place] saturation in Medical Arterial blood Center by Pulse oximetry Heart rate 94 /min 94 /min [facility] Diastolic blood 90 mm[Hg] 90 mm[Hg] [facility] Systolic blood 163 mm[Hg] 163 mm[Hg] [facility] [place] Body temperature 36.569685 Kaylie 36.154723 Kaylie [facility] Respiratory rate 17 /min 17 /min [facility] Oxygen 98 % 98 % [place] saturation in Medical Arterial blood Center by Pulse oximetry Heart rate 96 /min 96 /min [facility] Diastolic blood 70 mm[Hg] 70 mm[Hg] [facility] [place] Systolic blood 122 mm[Hg] 122 mm[Hg] [facility] Body temperature 36.790775 Kaylie 36.116398 Kaylie [facility] Respiratory rate 17 /min 17 /min [facility] Oxygen 98 % 98 % [place] saturation in Medical Arterial blood Center by Pulse oximetry Heart rate 70 /min 70 /min [facility] Diastolic blood 65 mm[Hg] 65 mm[Hg] [facility] [place] Systolic blood 127 mm[Hg] 127 mm[Hg] [facility] Body temperature 36.628839 Kaylie 36.452437 Kaylie [facility] Respiratory rate 16 /min 16 /min [facility] Oxygen 95 % 95 % [place] saturation in Medical Arterial blood Center by Pulse oximetry Heart rate 94 /min 94 /min [facility] Diastolic blood 86 mm[Hg] 86 mm[Hg] [facility] Systolic blood 140 mm[Hg] 140 mm[Hg] [facility] Body temperature 36.144987 Kaylie 36.268989 Kaylie [facility] Respiratory rate 6 /min 6 /min [facility] Oxygen 96 % 96 % [facility] [place] saturation in Medical Arterial blood Center by Pulse oximetry Heart rate 101 /min 101 /min [facility] Diastolic blood 90 mm[Hg] 90 mm[Hg] [facility] pressure [facility] Center Systolic blood 156 mm[Hg] 156 mm[Hg] [facility] Body temperature 36.702462 Kaylie 36.528883 Kaylie [facility] Diastolic blood 78 mm[Hg] 78 mm[Hg] [facility] pressure [facility] Center Systolic blood 138 mm[Hg] 138 mm[Hg] [facility] Respiratory rate 18 /min 18 /min [facility] Oxygen 97 % 97 % [place] saturation in Medical Arterial blood Center by Pulse oximetry Heart rate 87 /min 87 /min [facility] Body temperature 36.422041 Kaylie 36.188752 Kaylie [facility] Respiratory rate 18 /min 18 /min [facility] Oxygen 96 % 96 % [facility] saturation in Medical Arterial blood Center by Pulse oximetry Heart rate 96 /min 96 /min [facility] Diastolic blood 90 mm[Hg] 90 mm[Hg] [facility] pressure [facility] Center Systolic blood 150 mm[Hg] 150 mm[Hg] [facility] Body temperature 37.937795 Kaylie 37.744625 Kaylie [facility] Respiratory rate 18 /min 18 /min [facility] Oxygen 96 % 96 % [place] saturation in Medical Arterial blood Center by Pulse oximetry Heart rate 108 /min 108 /min [facility] Diastolic blood 63 mm[Hg] 63 mm[Hg] [facility] Systolic blood 110 mm[Hg] 110 mm[Hg] [facility] Body weight 116.224595 kg 116.907270 kg [facility] Body height 177.699354 cm 177.263797 cm [facility] Body mass index 36.8 kg/m2 36.8 kg/m2 [facility] (BMI) [Ratio] Medical Center Body temperature 36.833939 Kaylie 36.685629 Kaylie [facility] Respiratory rate 18 /min 18 /min [facility] Oxygen 98 % 98 % [place] saturation in Medical Arterial blood Center by Pulse oximetry Heart rate 82 /min 82 /min [facility] Diastolic blood 90 mm[Hg] 90 mm[Hg] [facility] Systolic blood 135 mm[Hg] 135 mm[Hg] [facility] Body temperature 36.083005 Kaylie 36.531471 Kaylie [facility] Respiratory rate 18 /min 18 /min [facility] Oxygen 98 % 98 % [facility] [place] saturation in Medical Arterial blood Center by Pulse oximetry Heart rate 80 /min 80 /min [facility] Diastolic blood 80 mm[Hg] 80 mm[Hg] [facility] pressure [facility] Center Systolic blood 124 mm[Hg] 124 mm[Hg] [facility] [place] Body temperature 37.584890 Kaylie 37.086939 Kaylie [facility] Respiratory rate 17 /min 17 /min [facility] Oxygen 98 % 98 % [facility] [place] saturation in Medical Arterial blood Center by Pulse oximetry Heart rate 90 /min 90 /min [facility] Diastolic blood 75 mm[Hg] 75 mm[Hg] [facility] Systolic blood 119 mm[Hg] 119 mm[Hg] [facility] Body temperature 37.120392 Kaylie 37.660494 Kaylie [facility] Respiratory rate 18 /min 18 /min [facility] Oxygen 95 % 95 % [facility] [place] saturation in Medical Arterial blood Center by Pulse oximetry Heart rate 96 /min 96 /min [facility] Diastolic blood 71 mm[Hg] 71 mm[Hg] [facility] [place] Systolic blood 106 mm[Hg] 106 mm[Hg] [facility] Body temperature 37.890488 Kaylie 37.279585 Kaylie [facility] Respiratory rate 18 /min 18 /min [facility] Oxygen 96 % 96 % [facility] [place] saturation in Medical Arterial blood Center by Pulse oximetry Heart rate 96 /min 96 /min [facility] Diastolic blood 65 mm[Hg] 65 mm[Hg] [facility] pressure [facility] Center Systolic blood 116 mm[Hg] 116 mm[Hg] [facility] [place] Body temperature 36.081160 Kaylie 36.680080 Kaylie [facility] Respiratory rate 17 /min 17 /min [facility] Oxygen 96 % 96 % [facility] [place] saturation in Medical Arterial blood Center by Pulse oximetry Heart rate 90 /min 90 /min [facility] Diastolic blood 74 mm[Hg] 74 mm[Hg] [facility] Systolic blood 129 mm[Hg] 129 mm[Hg] [facility] [place] Body temperature 37.536140 Kaylie 37.589291 Kaylie [facility] Respiratory rate 17 /min 17 /min [facility] Oxygen 96 % 96 % [facility] [place] saturation in Medical Arterial blood Center by Pulse oximetry Heart rate 93 /min 93 /min [facility] Diastolic blood 59 mm[Hg] 59 mm[Hg] [facility] Systolic blood 101 mm[Hg] 101 mm[Hg] [facility] [place] Body temperature 37.203291 Kaylie 37.063452 Kaylie [facility] Respiratory rate 18 /min 18 /min [facility] Oxygen 98 % 98 % [place] saturation in Medical Arterial blood Center by Pulse oximetry Heart rate 89 /min 89 /min [facility] Diastolic blood 86 mm[Hg] 86 mm[Hg] [facility] [place] Systolic blood 132 mm[Hg] 132 mm[Hg] [facility] Body temperature 37.973641 Kaylie 37.656628 Kaylie [facility] Respiratory rate 18 /min 18 /min [facility] Oxygen 99 % 99 % [place] saturation in Medical Arterial blood Center by Pulse oximetry Heart rate 71 /min 71 /min [facility] Diastolic blood 75 mm[Hg] 75 mm[Hg] [facility] Systolic blood 131 mm[Hg] 131 mm[Hg] [facility] Body temperature 37.154331 Kaylie 37.692723 Kaylie [facility] Respiratory rate 18 /min 18 /min [facility] Oxygen 95 % 95 % [facility] [place] saturation in Medical Arterial blood Center by Pulse oximetry Heart rate 104 /min 104 /min [facility] Diastolic blood 90 mm[Hg] 90 mm[Hg] [facility] Systolic blood 154 mm[Hg] 154 mm[Hg] [facility] Oxygen 96 % 96 % [place] saturation in Medical Arterial blood Center by Pulse oximetry Heart rate 100 /min 100 /min [facility] Diastolic blood 78 mm[Hg] 78 mm[Hg] [facility] Systolic blood 148 mm[Hg] 148 mm[Hg] [facility] Body temperature 37.262933 Kaylie 37.961959 Kaylie [facility] Respiratory rate 19 /min 19 /min [facility] Body temperature 36.482814 Kaylie 36.078084 Kaylie [facility] Respiratory rate 18 /min 18 /min [facility] Oxygen 97 % 97 % [place] saturation in Medical Arterial blood Center by Pulse oximetry Heart rate 100 /min 100 /min [facility] Diastolic blood 84 mm[Hg] 84 mm[Hg] [facility] Systolic blood 145 mm[Hg] 145 mm[Hg] [facility] Body weight 104.489790 kg 104.178810 kg [facility] Body height 177.645515 cm 177.287145 cm [facility] Body mass index 33.0 kg/m2 33.0 kg/m2 [facility] (BMI) [Ratio] Medical Center Body temperature 36.775501 Kaylie 36.010546 Kaylie [facility] Respiratory rate 18 /min 18 /min [facility] Oxygen 95 % 95 % [place] saturation in Medical Arterial blood Center by Pulse oximetry Heart rate 99 /min 99 /min [facility] Diastolic blood 60 mm[Hg] 60 mm[Hg] [facility] Systolic blood 112 mm[Hg] 112 mm[Hg] [facility] Body temperature 36.791877 Kaylie 36.409767 Kaylie [facility] Respiratory rate 18 /min 18 /min [facility] Oxygen 95 % 95 % [place] saturation in Medical Arterial blood Center by Pulse oximetry Heart rate 89 /min 89 /min [facility] Diastolic blood 62 mm[Hg] 62 mm[Hg] [facility] Systolic blood 102 mm[Hg] 102 mm[Hg] [facility] Body temperature 37.756688 Kaylie 37.608016 Kaylie [facility] Respiratory rate 17 /min 17 /min [facility] Oxygen 95 % 95 % [facility] [place] saturation in Medical Arterial blood Center by Pulse oximetry Heart rate 92 /min 92 /min [facility] Diastolic blood 66 mm[Hg] 66 mm[Hg] [facility] Systolic blood 102 mm[Hg] 102 mm[Hg] [facility] [facility] [facility] Body temperature 36.261570 Kaylie 36.945984 Kaylie [facility] Respiratory rate 17 /min 17 /min [facility] Oxygen 93 % 93 % [facility] saturation in Medical Arterial blood Center by Pulse oximetry Heart rate 69 /min 69 /min [facility] Diastolic blood 69 mm[Hg] 69 mm[Hg] [facility] pressure Medical Center Systolic blood 125 mm[Hg] 125 mm[Hg] [facility] Body temperature 36.062027 Kaylie 36.388102 Kaylie [facility] Respiratory rate 18 /min 18 /min [facility] Oxygen 95 % 95 % [facility] saturation in Medical Arterial blood Center by Pulse oximetry Heart rate 67 /min 67 /min [facility] Diastolic blood 68 mm[Hg] 68 mm[Hg] [facility] Systolic blood 125 mm[Hg] 125 mm[Hg] [facility] [place] Body temperature 36.147147 Kaylie 36.492139 Kaylie [facility] Respiratory rate 17 /min 17 /min [facility] Oxygen 96 % 96 % [facility] saturation in Medical Arterial blood Center by Pulse oximetry Heart rate 89 /min 89 /min [facility] Diastolic blood 88 mm[Hg] 88 mm[Hg] [facility] Systolic blood 143 mm[Hg] 143 mm[Hg] [facility] Oxygen 98 % 98 % [facility] saturation in Medical Arterial blood Center by Pulse oximetry Heart rate 75 /min 75 /min [facility] Diastolic blood 68 mm[Hg] 68 mm[Hg] [facility] Systolic blood 129 mm[Hg] 129 mm[Hg] [facility] Body temperature 37.742953 Kaylie 37.435768 Kaylie [facility] Respiratory rate 17 /min 17 /min [facility] Respiratory rate 16 /min 16 /min [facility] Oxygen 93 % 93 % [facility] saturation in Medical Arterial blood Center by Pulse oximetry Heart rate 92 /min 92 /min [facility] Diastolic blood 72 mm[Hg] 72 mm[Hg] [facility] pressure Medical Center Systolic blood 143 mm[Hg] 143 mm[Hg] [facility] Body temperature 37.618275 Kaylie 37.028603 Kaylie [facility] Respiratory rate 18 /min 18 /min [facility] Oxygen 98 % 98 % [place] saturation in Medical Arterial blood Center by Pulse oximetry Heart rate 86 /min 86 /min [facility] Diastolic blood 57 mm[Hg] 57 mm[Hg] [facility] pressure Medical Center Systolic blood 119 mm[Hg] 119 mm[Hg] [facility] Body temperature 37.230879 Kaylie 37.760232 Kaylie [facility] Respiratory rate 16 /min 16 /min [facility] Oxygen 92 % 92 % [place] saturation in Medical Arterial blood Center by Pulse oximetry Heart rate 88 /min 88 /min [facility] Diastolic blood 56 mm[Hg] 56 mm[Hg] [facility] Systolic blood 90 mm[Hg] 90 mm[Hg] [facility] Body weight 90.487445 kg 90.238585 kg [facility] Body temperature 37.321795 Kaylie 37.600939 Kaylie [facility] Respiratory rate 19 /min 19 /min [facility] Oxygen 93 % 93 % [place] saturation in Medical Arterial blood Center by Pulse oximetry Heart rate 84 /min 84 /min [facility] Body height 177.437938 cm 177.649491 cm [facility] Diastolic blood 48 mm[Hg] 48 mm[Hg] [facility] Systolic blood 100 mm[Hg] 100 mm[Hg] [facility] Body mass index 28.4 kg/m2 28.4 kg/m2 [facility] (BMI) [Ratio] [facility] Center Body temperature 37.824296 Kaylie 37.444061 Kaylie [facility] Respiratory rate 18 /min 18 /min [facility] Oxygen 98 % 98 % [place] saturation in Medical Arterial blood Center by Pulse oximetry Heart rate 89 /min 89 /min [facility] Diastolic blood 78 mm[Hg] 78 mm[Hg] [facility] Systolic blood 145 mm[Hg] 145 mm[Hg] [facility] Body temperature 37.635554 Kaylie 37.801306 Kaylie [facility] Respiratory rate 20 /min 20 /min [facility] Oxygen 95 % 95 % [facility] saturation in Medical Arterial blood Center by Pulse oximetry Diastolic blood 90 mm[Hg] 90 mm[Hg] [facility] pressure Medical Center Systolic blood 154 mm[Hg] 154 mm[Hg] [facility] Body temperature 37.587356 Kaylie 37.734921 Kaylie [facility] Respiratory rate 20 /min 20 /min [facility] Oxygen 95 % 95 % [facility] saturation in Medical Arterial blood Center by Pulse oximetry Heart rate 91 /min 91 /min [facility] Diastolic blood 90 mm[Hg] 90 mm[Hg] [facility] pressure Medical Center Systolic blood 142 mm[Hg] 142 mm[Hg] [facility] Body temperature 36.107911 Kaylie 36.879647 Kaylie [facility] Respiratory rate 20 /min 20 /min [facility] Oxygen 98 % 98 % [facility] saturation in Medical Arterial blood Center by Pulse oximetry Heart rate 95 /min 95 /min [facility] Diastolic blood 61 mm[Hg] 61 mm[Hg] [facility] pressure Medical Center Systolic blood 102 mm[Hg] 102 mm[Hg] [facility] Body temperature 36.033744 Kaylie 36.661475 Kaylie [facility] Respiratory rate 19 /min 19 /min [facility] Oxygen 96 % 96 % [place] saturation in Medical Arterial blood Center by Pulse oximetry Heart rate 74 /min 74 /min [facility] Diastolic blood 74 mm[Hg] 74 mm[Hg] [facility] Systolic blood 132 mm[Hg] 132 mm[Hg] [facility] Body weight 79.372283 kg 79.859146 kg [facility] Heart rate 71 /min 71 /min [facility] Body height 182.841915 cm 182.194060 cm [facility] Body mass index 23.7 kg/m2 23.7 kg/m2 [facility] (BMI) [Ratio] Medical Center Body temperature 37.895960 Kaylie 37.169328 Kaylie [facility] Respiratory rate 18 /min 18 /min [facility] Oxygen 96 % 96 % [facility] saturation in Medical Arterial blood Center by Pulse oximetry Heart rate 87 /min 87 /min [facility] Diastolic blood 69 mm[Hg] 69 mm[Hg] [facility] Systolic blood 129 mm[Hg] 129 mm[Hg] [facility] Body temperature 36.221344 Kaylie 36.081609 Kaylie [facility] Respiratory rate 18 /min 18 /min [facility] Oxygen 95 % 95 % [facility] saturation in Medical Arterial blood Center by Pulse oximetry Heart rate 87 /min 87 /min [facility] Diastolic blood 75 mm[Hg] 75 mm[Hg] [facility] Systolic blood 122 mm[Hg] 122 mm[Hg] [facility] Body temperature 37.636241 Kaylie 37.487006 Kaylie [facility] Respiratory rate 19 /min 19 /min [facility] Oxygen 95 % 95 % [facility] saturation in Medical Arterial blood Center by Pulse oximetry Heart rate 90 /min 90 /min [facility] Diastolic blood 78 mm[Hg] 78 mm[Hg] [facility] Systolic blood 124 mm[Hg] 124 mm[Hg] [facility] Body temperature 37.769840 Kaylie 37.038476 Kaylie [facility] Respiratory rate 19 /min 19 /min [facility] Oxygen 95 % 95 % [facility] saturation in Medical Arterial blood Center by Pulse oximetry Heart rate 85 /min 85 /min [facility] Diastolic blood 70 mm[Hg] 70 mm[Hg] [facility] Systolic blood 129 mm[Hg] 129 mm[Hg] [facility] Body weight 104.626406 kg 104.933874 kg [facility] Body temperature 37.370003 Kaylie 37.354325 Kaylie [facility] Respiratory rate 86 /min 86 /min [facility] Oxygen 95 % 95 % [facility] saturation in Medical Arterial blood Center by Pulse oximetry Heart rate 86 /min 86 /min [facility] Body height 177.125313 cm 177.196036 cm [facility] Diastolic blood 74 mm[Hg] 74 mm[Hg] [facility] Systolic blood 137 mm[Hg] 137 mm[Hg] [facility] Body mass index 33.0 kg/m2 33.0 kg/m2 [facility] (BMI) [Ratio] Medical Center Body temperature 36.043084 Kaylie 36.575836 Kaylie [facility] Respiratory rate 18 /min 18 /min [facility] Oxygen 92 % 92 % [place] saturation in Medical Arterial blood Center by Pulse oximetry Heart rate 100 /min 100 /min [facility] Diastolic blood 65 mm[Hg] 65 mm[Hg] [facility] Systolic blood 135 mm[Hg] 135 mm[Hg] [facility] Body temperature 37.102907 Kaylie 37.085531 Kaylie [facility] Respiratory rate 18 /min 18 /min [facility] Oxygen 95 % 95 % [place] saturation in Medical Arterial blood Center by Pulse oximetry Heart rate 97 /min 97 /min [facility] Diastolic blood 89 mm[Hg] 89 mm[Hg] [facility] Systolic blood 157 mm[Hg] 157 mm[Hg] [facility] Body temperature 37.352006 Kaylie 37.416450 Kaylie [facility] Respiratory rate 18 /min 18 /min [facility] Oxygen 95 % 95 % [place] saturation in Medical Arterial blood Center by Pulse oximetry Heart rate 91 /min 91 /min [facility] Diastolic blood 60 mm[Hg] 60 mm[Hg] [facility] Systolic blood 118 mm[Hg] 118 mm[Hg] [facility] Body weight 104.778599 kg 104.987682 kg [facility] Body temperature 36.041245 Kaylie 36.056389 Kaylie [facility] Respiratory rate 17 /min 17 /min [facility] Oxygen 95 % 95 % [place] saturation in Medical Arterial blood Center by Pulse oximetry Heart rate 89 /min 89 /min [facility] Body height 177.982124 cm 177.091815 cm [facility] Diastolic blood 88 mm[Hg] 88 mm[Hg] [facility] Center Systolic blood 127 mm[Hg] 127 mm[Hg] [facility] Body mass index 33.0 kg/m2 33.0 kg/m2 [facility] (BMI) [Ratio] Medical Center Body temperature 36.207363 Kaylie 36.808746 Kaylie [facility] Respiratory rate 17 /min 17 /min [facility] Oxygen 98 % 98 % [facility] saturation in Medical Arterial blood Center by Pulse oximetry Heart rate 88 /min 88 /min [facility] Diastolic blood 82 mm[Hg] 82 mm[Hg] [facility] pressure Medical Center Systolic blood 138 mm[Hg] 138 mm[Hg] [facility] Body temperature 36.951191 Kaylie 36.066931 Kaylie [facility] Respiratory rate 18 /min 18 /min [facility] Oxygen 98 % 98 % [facility] saturation in Medical Arterial blood Center by Pulse oximetry Heart rate 87 /min 87 /min [facility] Diastolic blood 84 mm[Hg] 84 mm[Hg] [facility] Systolic blood 145 mm[Hg] 145 mm[Hg] [facility] Body temperature 36.739678 Kaylie 36.432923 Kaylie [facility] Respiratory rate 18 /min 18 /min [facility] Oxygen 97 % 97 % [facility] saturation in Medical Arterial blood Center by Pulse oximetry Heart rate 87 /min 87 /min [facility] Diastolic blood 97 mm[Hg] 97 mm[Hg] [facility] Systolic blood 154 mm[Hg] 154 mm[Hg] [facility] Body temperature 36.791521 Kaylie 36.615032 Kaylie [facility] Respiratory rate 18 /min 18 /min [facility] Oxygen 98 % 98 % [facility] saturation in Medical Arterial blood Center by Pulse oximetry Heart rate 88 /min 88 /min [facility] Diastolic blood 78 mm[Hg] 78 mm[Hg] [facility] Systolic blood 145 mm[Hg] 145 mm[Hg] [facility] Body temperature 36.008670 Kaylie 36.771651 Kaylie [facility] Respiratory rate 18 /min 18 /min [facility] Oxygen 97 % 97 % [facility] [place] saturation in Medical Arterial blood Center by Pulse oximetry Heart rate 77 /min 77 /min [facility] Diastolic blood 71 mm[Hg] 71 mm[Hg] [facility] pressure Medical Center Systolic blood 126 mm[Hg] 126 mm[Hg] [facility] Body temperature 36.433164 Kaylie 36.825547 Kaylie [facility] Respiratory rate 17 /min 17 /min [facility] Oxygen 94 % 94 % [facility] [place] saturation in Medical Arterial blood Center by Pulse oximetry Heart rate 54 /min 54 /min [facility] Diastolic blood 64 mm[Hg] 64 mm[Hg] [facility] Systolic blood 113 mm[Hg] 113 mm[Hg] [facility] Respiratory rate 16 /min 16 /min [facility] Oxygen 97 % 97 % [facility] [place] saturation in Medical Arterial blood Center by Pulse oximetry Heart rate 52 /min 52 /min [facility] Diastolic blood 80 mm[Hg] 80 mm[Hg] [facility] Systolic blood 130 mm[Hg] 130 mm[Hg] [facility] Body temperature 36.098115 Kaylie 36.339918 Kaylie [facility] Respiratory rate 18 /min 18 /min [facility] Oxygen 96 % 96 % [facility] [place] saturation in Medical Arterial blood Center by Pulse oximetry Heart rate 96 /min 96 /min [facility] Diastolic blood 75 mm[Hg] 75 mm[Hg] [facility] Systolic blood 129 mm[Hg] 129 mm[Hg] [facility] Body temperature 37.329716 Kaylie 37.226098 Kaylie [facility] Respiratory rate 19 /min 19 /min [facility] Oxygen 96 % 96 % [facility] saturation in Medical Arterial blood Center by Pulse oximetry Heart rate 98 /min 98 /min [facility] Diastolic blood 77 mm[Hg] 77 mm[Hg] [facility] Systolic blood 132 mm[Hg] 132 mm[Hg] [facility] Body temperature 36.048397 Kaylie 36.642016 Kaylie [facility] Respiratory rate 16 /min 16 /min [facility] Oxygen 95 % 95 % [facility] [place] saturation in Medical Arterial blood Center by Pulse oximetry Heart rate 95 /min 95 /min [facility] Diastolic blood 70 mm[Hg] 70 mm[Hg] [facility] Systolic blood 118 mm[Hg] 118 mm[Hg] [facility] Body temperature 36.742694 Kaylie 36.174490 Kaylie [facility] Respiratory rate 18 /min 18 /min [facility] Oxygen 96 % 96 % [facility] [place] saturation in Medical Arterial blood Center by Pulse oximetry Heart rate 100 /min 100 /min [facility] Diastolic blood 72 mm[Hg] 72 mm[Hg] [facility] Systolic blood 126 mm[Hg] 126 mm[Hg] [facility] [place] Body temperature 36.972429 Kaylie 36.832980 Kaylie [facility] Respiratory rate 18 /min 18 /min [facility] Oxygen 97 % 97 % [facility] [place] saturation in Medical Arterial blood Center by Pulse oximetry Heart rate 88 /min 88 /min [facility] Diastolic blood 75 mm[Hg] 75 mm[Hg] [facility] Systolic blood 145 mm[Hg] 145 mm[Hg] [facility] Body temperature 36.827584 Kaylie 36.804770 Kaylie [facility] Respiratory rate 18 /min 18 /min [facility] Oxygen 97 % 97 % [facility] [place] saturation in Medical Arterial blood Center by Pulse oximetry Heart rate 88 /min 88 /min [facility] Diastolic blood 73 mm[Hg] 73 mm[Hg] [facility] Systolic blood 128 mm[Hg] 128 mm[Hg] [facility] Body temperature 36.135732 Kaylie 36.662776 Kaylie [facility] Respiratory rate 18 /min 18 /min [facility] Oxygen 96 % 96 % [facility] [place] saturation in Medical Arterial blood Center by Pulse oximetry Heart rate 95 /min 95 /min [facility] Diastolic blood 89 mm[Hg] 89 mm[Hg] [facility] Systolic blood 131 mm[Hg] 131 mm[Hg] [facility] Body temperature 37.740043 Kaylie 37.475636 Kaylie [facility] Respiratory rate 18 /min 18 /min [facility] Oxygen 98 % 98 % [facility] [place] saturation in Medical Arterial blood Center by Pulse oximetry Heart rate 89 /min 89 /min [facility] Diastolic blood 78 mm[Hg] 78 mm[Hg] [facility] pressure Medical Center Systolic blood 145 mm[Hg] 145 mm[Hg] [facility] Body temperature 36.886778 Kaylie 36.537806 Kaylie [facility] Respiratory rate 18 /min 18 /min [facility] Oxygen 97 % 97 % [facility] saturation in Medical Arterial blood Center by Pulse oximetry Heart rate 92 /min 92 /min [facility] Diastolic blood 95 mm[Hg] 95 mm[Hg] [facility] [place] Systolic blood 150 mm[Hg] 150 mm[Hg] [facility] [place] Body temperature 36.024881 Kaylie 36.393828 Kaylie [facility] Respiratory rate 18 /min 18 /min [facility] Oxygen 95 % 95 % [facility] saturation in Medical Arterial blood Center by Pulse oximetry Heart rate 88 /min 88 /min [facility] Diastolic blood 83 mm[Hg] 83 mm[Hg] [facility] [place] Systolic blood 139 mm[Hg] 139 mm[Hg] [facility] Body temperature 36.634687 Kaylie 36.259954 Kaylie [facility] Respiratory rate 19 /min 19 /min [facility] Oxygen 97 % 97 % [facility] saturation in Medical Arterial blood Center by Pulse oximetry Heart rate 87 /min 87 /min [facility] Diastolic blood 95 mm[Hg] 95 mm[Hg] [facility] Systolic blood 137 mm[Hg] 137 mm[Hg] [facility] Body temperature 36.169781 Kaylie 36.848972 Kaylie [facility] Respiratory rate 18 /min 18 /min [facility] Oxygen 97 % 97 % [facility] saturation in Medical Arterial blood Center by Pulse oximetry Heart rate 82 /min 82 /min [facility] Diastolic blood 84 mm[Hg] 84 mm[Hg] [facility] Systolic blood 122 mm[Hg] 122 mm[Hg] [facility] [place] Body temperature 36.953983 Kaylie 36.633695 Kaylie [facility] Respiratory rate 18 /min 18 /min [facility] Oxygen 98 % 98 % [facility] saturation in Medical Arterial blood Center by Pulse oximetry Heart rate 89 /min 89 /min [facility] Diastolic blood 74 mm[Hg] 74 mm[Hg] [facility] pressure [facility] Center Systolic blood 124 mm[Hg] 124 mm[Hg] [facility] Body temperature 36.647204 Kaylie 36.728399 Kaylie [facility] Respiratory rate 19 /min 19 /min [facility] Oxygen 98 % 98 % [facility] saturation in Medical Arterial blood Center by Pulse oximetry Heart rate 85 /min 85 /min [facility] Diastolic blood 79 mm[Hg] 79 mm[Hg] [facility] Systolic blood 136 mm[Hg] 136 mm[Hg] [facility] Body temperature 37.408389 Kaylie 37.546473 Kaylie [facility] Respiratory rate 17 /min 17 /min [facility] Oxygen 97 % 97 % [facility] saturation in Medical Arterial blood Center by Pulse oximetry Heart rate 77 /min 77 /min [facility] Diastolic blood 74 mm[Hg] 74 mm[Hg] [facility] Systolic blood 109 mm[Hg] 109 mm[Hg] [facility] Body temperature 36.211403 Kaylie 36.516190 Kaylie [facility] Respiratory rate 18 /min 18 /min [facility] Oxygen 96 % 96 % [place] saturation in Medical Arterial blood Center by Pulse oximetry Heart rate 82 /min 82 /min [facility] Diastolic blood 79 mm[Hg] 79 mm[Hg] [facility] Systolic blood 112 mm[Hg] 112 mm[Hg] [facility] Body weight 80.595231 kg 80.650578 kg [facility] Measured [facility] Body height 172.075715 cm 172.525111 cm [facility] Body mass index 26.8 kg/m2 26.8 kg/m2 [facility] (BMI) [Ratio] Medical Center Body weight 80.888086 kg 80.367108 kg [facility] Measured [facility] Body height 172.949075 cm 172.482288 cm [facility] Body mass index 26.8 kg/m2 26.8 kg/m2 [facility] (BMI) [Ratio] Medical Center Body temperature 36.503751 Kaylie 36.448233 Kaylie [facility] Respiratory rate 19 /min 19 /min [facility] Oxygen 100 % 100 % [place] saturation in Medical Arterial blood Center by Pulse oximetry Heart rate 85 /min 85 /min [facility] Diastolic blood 77 mm[Hg] 77 mm[Hg] [facility] pressure [facility] Center Systolic blood 117 mm[Hg] 117 mm[Hg] [facility] Body temperature 37.349668 Kaylie 37.699187 Kaylie [facility] Respiratory rate 18 /min 18 /min [facility] Oxygen 95 % 95 % [facility] saturation in Medical Arterial blood Center by Pulse oximetry Heart rate 76 /min 76 /min [facility] Diastolic blood 64 mm[Hg] 64 mm[Hg] [facility] pressure [facility] Center Systolic blood 125 mm[Hg] 125 mm[Hg] [facility] Body temperature 37.883304 Kaylie 37.409723 Kaylie [facility] Respiratory rate 19 /min 19 /min [facility] Oxygen 95 % 95 % [place] saturation in Medical Arterial blood Center by Pulse oximetry Heart rate 77 /min 77 /min [facility] Diastolic blood 63 mm[Hg] 63 mm[Hg] [facility] pressure [facility] Center Systolic blood 113 mm[Hg] 113 mm[Hg] [facility] Body weight 104.951765 kg 104.243636 kg [facility] Body temperature 36.208660 Kaylie 36.347223 Kaylie [facility] Respiratory rate 17 /min 17 /min [facility] Oxygen 92 % 92 % [place] saturation in Medical Arterial blood Center by Pulse oximetry Heart rate 84 /min 84 /min [facility] Body height 177.218699 cm 177.935970 cm [facility] Diastolic blood 83 mm[Hg] 83 mm[Hg] [facility] pressure [facility] Center Systolic blood 136 mm[Hg] 136 mm[Hg] [facility] Body mass index 33.0 kg/m2 33.0 kg/m2 [facility] (BMI) [Ratio] Medical Center Body temperature 36.970480 Kaylie 36.920460 Kaylie [facility] Respiratory rate 19 /min 19 /min [facility] Oxygen 96 % 96 % [facility] saturation in Medical Arterial blood Center by Pulse oximetry Heart rate 89 /min 89 /min [facility] Diastolic blood 70 mm[Hg] 70 mm[Hg] [facility] pressure Medical Center Systolic blood 137 mm[Hg] 137 mm[Hg] [facility] Body temperature 36.433086 Kaylie 36.449133 Kaylie [facility] Respiratory rate 18 /min 18 /min [facility] Oxygen 99 % 99 % [facility] saturation in [facility] by Pulse oximetry Heart rate 78 /min 78 /min [facility] Diastolic blood 78 mm[Hg] 78 mm[Hg] [facility] pressure [facility] Center Systolic blood 144 mm[Hg] 144 mm[Hg] [facility] Oxygen 99 % 99 % [facility] saturation in Medical Arterial blood Center by Pulse oximetry Respiratory rate 18 /min 18 /min [facility] Oxygen 90 % 90 % [place] saturation in Medical Arterial blood Center by Pulse oximetry Heart rate 72 /min 72 /min [facility] Diastolic blood 66 mm[Hg] 66 mm[Hg] [facility] pressure Medical Center Systolic blood 144 mm[Hg] 144 mm[Hg] [facility] Body temperature 36.678990 Kaylie 36.999243 Kaylie [facility] Respiratory rate 18 /min 18 /min [facility] Heart rate 80 /min 80 /min [facility] Diastolic blood 82 mm[Hg] 82 mm[Hg] [facility] pressure [facility] Center Systolic blood 141 mm[Hg] 141 mm[Hg] [facility] Body temperature 36.282497 Kaylie 36.344550 Kaylie [facility] Oxygen 92 % 92 % [place] saturation in Medical Arterial blood Center by Pulse oximetry Heart rate 79 /min 79 /min [facility] Diastolic blood 84 mm[Hg] 84 mm[Hg] [facility] pressure [facility] Center Systolic blood 139 mm[Hg] 139 mm[Hg] [facility] pressure [facility] Center Systolic blood 159 mm[Hg] 159 mm[Hg] [facility] pressure [facility] Center Body mass index 33.0 kg/m2 33.0 kg/m2 [facility] (BMI) [Ratio] Medical Center Body weight 104.749635 kg 104.571118 kg [facility] Body temperature 37.013794 Kaylie 37.407944 Kaylie [facility] Respiratory rate 18 /min 18 /min [facility] Oxygen 97 % 97 % [facility] saturation in Medical Arterial blood Center by Pulse oximetry Heart rate 69 /min 69 /min [facility] Body height 177.152058 cm 177.759072 cm [facility] Diastolic blood 100 mm[Hg] 100 mm[Hg] [facility] Body temperature 36.501244 Kaylie 36.223700 Kaylie [facility] Respiratory rate 18 /min 18 /min [facility] Oxygen 97 % 97 % [facility] saturation in Medical Arterial blood Center by Pulse oximetry Heart rate 88 /min 88 /min [facility] Diastolic blood 97 mm[Hg] 97 mm[Hg] [facility] Systolic blood 152 mm[Hg] 152 mm[Hg] [facility] Body temperature 37.104860 Kaylie 37.155453 Kaylie [facility] Respiratory rate 18 /min 18 /min [facility] Oxygen 97 % 97 % [facility] saturation in Medical Arterial blood Center by Pulse oximetry Heart rate 87 /min 87 /min [facility] Diastolic blood 87 mm[Hg] 87 mm[Hg] [facility] Systolic blood 145 mm[Hg] 145 mm[Hg] [facility] Body temperature 36.924624 Kaylie 36.648083 Kaylie [facility] Respiratory rate 17 /min 17 /min [facility] Oxygen 94 % 94 % [facility] saturation in Medical Arterial blood Center by Pulse oximetry Heart rate 98 /min 98 /min [facility] Diastolic blood 68 mm[Hg] 68 mm[Hg] [facility] Systolic blood 144 mm[Hg] 144 mm[Hg] [facility] Body temperature 36.820813 Kaylie 36.611748 Kaylie [facility] Respiratory rate 18 /min 18 /min [facility] Oxygen 97 % 97 % [facility] saturation in Medical Arterial blood Center by Pulse oximetry Heart rate 88 /min 88 /min [facility] Diastolic blood 72 mm[Hg] 72 mm[Hg] [facility] Systolic blood 144 mm[Hg] 144 mm[Hg] [facility] Body temperature 36.905517 Kaylie 36.149797 Kaylie [facility] Respiratory rate 19 /min 19 /min [facility] Heart rate 90 /min 90 /min [facility] Diastolic blood 74 mm[Hg] 74 mm[Hg] [facility] pressure Medical Center Systolic blood 121 mm[Hg] 121 mm[Hg] [facility] Body temperature 37.471064 Kaylie 37.617527 Kaylie [facility] Respiratory rate 17 /min 17 /min [facility] Oxygen 89 % 89 % [place] saturation in Medical Arterial blood Center by Pulse oximetry Heart rate 110 /min 110 /min [facility] Diastolic blood 76 mm[Hg] 76 mm[Hg] [facility] Systolic blood 115 mm[Hg] 115 mm[Hg] [facility] Body temperature 36.629562 Kaylie 36.154082 Kaylie [facility] Respiratory rate 18 /min 18 /min [facility] Oxygen 100 % 100 % [facility] saturation in Medical Arterial blood Center by Pulse oximetry Heart rate 80 /min 80 /min [facility] Diastolic blood 78 mm[Hg] 78 mm[Hg] [facility] Systolic blood 128 mm[Hg] 128 mm[Hg] [facility] Body temperature 36.669531 Kaylie 36.717310 Kaylie [facility] Respiratory rate 19 /min 19 /min [facility] Oxygen 96 % 96 % [facility] saturation in Medical Arterial blood Center by Pulse oximetry Heart rate 69 /min 69 /min [facility] Diastolic blood 78 mm[Hg] 78 mm[Hg] [facility] Systolic blood 128 mm[Hg] 128 mm[Hg] [facility] [place] Body weight 95.939395 kg 95.188528 kg [facility] [place] Body temperature 36.415048 Kaylie 36.506068 Kaylie [facility] Respiratory rate 18 /min 18 /min [facility] Oxygen 96 % 96 % [facility] saturation in Medical Arterial blood Center by Pulse oximetry Heart rate 95 /min 95 /min [facility] Body height 182.321826 cm 182.498272 cm [facility] Diastolic blood 80 mm[Hg] 80 mm[Hg] [facility] pressure Medical Center Systolic blood 130 mm[Hg] 130 mm[Hg] [facility] Body mass index 28.4 kg/m2 28.4 kg/m2 [facility] (BMI) [Ratio] Medical Center Body temperature 36.458836 Kaylie 36.489604 Kaylie [facility] Respiratory rate 16 /min 16 /min [facility] Oxygen 97 % 97 % [place] saturation in Medical Arterial blood Center by Pulse oximetry Heart rate 74 /min 74 /min [facility] Diastolic blood 77 mm[Hg] 77 mm[Hg] [facility] Systolic blood 131 mm[Hg] 131 mm[Hg] [facility] Body temperature 36.790249 Kaylie 36.994389 Kaylie [facility] Respiratory rate 18 /min 18 /min [facility] Oxygen 99 % 99 % [facility] saturation in Medical Arterial blood Center by Pulse oximetry Heart rate 82 /min 82 /min [facility] Diastolic blood 82 mm[Hg] 82 mm[Hg] [facility] pressure Medical Center Systolic blood 135 mm[Hg] 135 mm[Hg] [facility] Body weight 120.926376 kg 120.152342 kg [facility] Body temperature 36.630289 Kaylie 36.528613 Kaylie [facility] Respiratory rate 16 /min 16 /min [facility] Oxygen 96 % 96 % [facility] saturation in Medical Arterial blood Center by Pulse oximetry Heart rate 67 /min 67 /min [facility] Diastolic blood 67 mm[Hg] 67 mm[Hg] [facility] Systolic blood 115 mm[Hg] 115 mm[Hg] [facility] Oxygen 90 % 90 % [facility] saturation in Medical Arterial blood Center by Pulse oximetry Heart rate 109 /min 109 /min [facility] Diastolic blood 62 mm[Hg] 62 mm[Hg] [facility] Systolic blood 103 mm[Hg] 103 mm[Hg] [facility] Body temperature 37.264516 Kaylie 37.430390 Kaylie [facility] Respiratory rate 18 /min 18 /min [facility] Body weight 113.094555 kg 113.765622 kg [facility] Body temperature 36.664260 Kaylie 36.593644 Kaylie [facility] Respiratory rate 18 /min 18 /min [facility] Oxygen 96 % 96 % [place] saturation in Medical Arterial blood Center by Pulse oximetry Heart rate 82 /min 82 /min [facility] Body height 177.378797 cm 177.260195 cm [facility] Diastolic blood 82 mm[Hg] 82 mm[Hg] [facility] pressure Medical Center Systolic blood 136 mm[Hg] 136 mm[Hg] [facility] Body mass index 35.8 kg/m2 35.8 kg/m2 [facility] (BMI) [Ratio] Medical Center Body temperature 37.757386 Kaylie 37.621252 Kaylie [facility] Respiratory rate 18 /min 18 /min [facility] Oxygen 96 % 96 % [facility] saturation in Medical Arterial blood Center by Pulse oximetry Heart rate 88 /min 88 /min [facility] Diastolic blood 86 mm[Hg] 86 mm[Hg] [facility] Systolic blood 118 mm[Hg] 118 mm[Hg] [facility] Body temperature 36.147428 Kaylie 36.442374 Kaylie [facility] Respiratory rate 18 /min 18 /min [facility] Oxygen 98 % 98 % [facility] saturation in Medical Arterial blood Center by Pulse oximetry Heart rate 79 /min 79 /min [facility] Diastolic blood 78 mm[Hg] 78 mm[Hg] [facility] Systolic blood 121 mm[Hg] 121 mm[Hg] [facility] Body temperature 36.934363 Kaylie 36.999109 Kaylie [facility] Respiratory rate 19 /min 19 /min [facility] Oxygen 96 % 96 % [facility] saturation in Medical Arterial blood Center by Pulse oximetry Heart rate 81 /min 81 /min [facility] Diastolic blood 74 mm[Hg] 74 mm[Hg] [facility] Systolic blood 118 mm[Hg] 118 mm[Hg] [facility] Body temperature 37.489010 Kaylie 37.533974 Kaylie [facility] Respiratory rate 18 /min 18 /min [facility] Oxygen 96 % 96 % [place] saturation in Medical Arterial blood Center by Pulse oximetry Heart rate 96 /min 96 /min [facility] Diastolic blood 59 mm[Hg] 59 mm[Hg] [facility] pressure [facility] Center Systolic blood 94 mm[Hg] 94 mm[Hg] [facility] Body temperature 37.553697 Kaylie 37.553474 Kaylie [facility] Respiratory rate 19 /min 19 /min [facility] Oxygen 95 % 95 % [place] saturation in Medical Arterial blood Center by Pulse oximetry Heart rate 88 /min 88 /min [facility] Diastolic blood 53 mm[Hg] 53 mm[Hg] [facility] Systolic blood 93 mm[Hg] 93 mm[Hg] [facility] Body weight 74.471897 kg 74.905717 kg [facility] Body temperature 36.373445 Kaylie 36.129436 Kaylie [facility] Respiratory rate 18 /min 18 /min [facility] Oxygen 100 % 100 % [place] saturation in Medical Arterial blood Center by Pulse oximetry Heart rate 94 /min 94 /min [facility] Body height 182.399240 cm 182.468656 cm [facility] Diastolic blood 59 mm[Hg] 59 mm[Hg] [facility] pressure [facility] Center Systolic blood 100 mm[Hg] 100 mm[Hg] [facility] Body mass index 22.3 kg/m2 22.3 kg/m2 [facility] (BMI) [Ratio] Medical Center Body temperature 37.728092 Kaylie 37.526684 Kaylie [facility] Respiratory rate 18 /min 18 /min [facility] Oxygen 95 % 95 % [place] saturation in Medical Arterial blood Center by Pulse oximetry Heart rate 88 /min 88 /min [facility] Diastolic blood 78 mm[Hg] 78 mm[Hg] [facility] pressure [facility] Center Systolic blood 132 mm[Hg] 132 mm[Hg] [facility] Body temperature 37.201584 Kaylie 37.444204 Kaylie [facility] Respiratory rate 17 /min 17 /min [facility] Oxygen 94 % 94 % [facility] [place] saturation in Medical Arterial blood Center by Pulse oximetry Heart rate 80 /min 80 /min [facility] Diastolic blood 84 mm[Hg] 84 mm[Hg] [facility] pressure [facility] Center Systolic blood 134 mm[Hg] 134 mm[Hg] [facility] Body temperature 37.688413 Kaylie 37.067178 Kaylie [facility] Respiratory rate 19 /min 19 /min [facility] Oxygen 95 % 95 % [facility] [place] saturation in Medical Arterial blood Center by Pulse oximetry Heart rate 87 /min 87 /min [facility] Diastolic blood 75 mm[Hg] 75 mm[Hg] [facility] pressure [facility] Center Systolic blood 137 mm[Hg] 137 mm[Hg] [facility] Body temperature 36.881757 Kaylie 36.771006 Kaylie [facility] Respiratory rate 18 /min 18 /min [facility] Oxygen 93 % 93 % [facility] saturation in Medical Arterial blood Center by Pulse oximetry Heart rate 81 /min 81 /min [facility] Diastolic blood 77 mm[Hg] 77 mm[Hg] [facility] pressure [facility] Center Systolic blood 137 mm[Hg] 137 mm[Hg] [facility] [place] Body temperature 37.081708 Kaylie 37.306149 Kaylie [facility] Respiratory rate 19 /min 19 /min [facility] Oxygen 96 % 96 % [facility] saturation in Medical Arterial blood Center by Pulse oximetry Heart rate 96 /min 96 /min [facility] Diastolic blood 75 mm[Hg] 75 mm[Hg] [facility] pressure [facility] Center Systolic blood 129 mm[Hg] 129 mm[Hg] [facility] Body temperature 37.277480 Kaylie 37.290873 Kaylie [facility] Respiratory rate 18 /min 18 /min [facility] Oxygen 97 % 97 % [facility] saturation in Medical Arterial blood Center by Pulse oximetry Heart rate 99 /min 99 /min [facility] Diastolic blood 72 mm[Hg] 72 mm[Hg] [facility] pressure [facility] Center Systolic blood 131 mm[Hg] 131 mm[Hg] [facility] Body temperature 37.262746 Kaylie 37.759750 Kaylie [facility] Respiratory rate 19 /min 19 /min [facility] Oxygen 98 % 98 % [place] saturation in Medical Arterial blood Center by Pulse oximetry Heart rate 84 /min 84 /min [facility] Diastolic blood 85 mm[Hg] 85 mm[Hg] [facility] pressure Medical Center Systolic blood 131 mm[Hg] 131 mm[Hg] [facility] Body temperature 37.595079 Kaylie 37.798181 Kaylie [facility] Respiratory rate 18 /min 18 /min [facility] Oxygen 98 % 98 % [place] saturation in Medical Arterial blood Center by Pulse oximetry Heart rate 85 /min 85 /min [facility] Diastolic blood 88 mm[Hg] 88 mm[Hg] [facility] Systolic blood 126 mm[Hg] 126 mm[Hg] [facility] Body temperature 37.579193 Kaylie 37.624470 Kaylie [facility] Respiratory rate 18 /min 18 /min [facility] Oxygen 98 % 98 % [facility] saturation in Medical Arterial blood Center by Pulse oximetry Heart rate 90 /min 90 /min [facility] Diastolic blood 85 mm[Hg] 85 mm[Hg] [facility] Systolic blood 139 mm[Hg] 139 mm[Hg] [facility] Body weight 85.975082 kg 85.496821 kg [facility] Measured [facility] Body height 177.511406 cm 177.863011 cm [facility] Body mass index 26.8 kg/m2 26.8 kg/m2 [facility] (BMI) [Ratio] Medical Center Body temperature 36.267527 Kaylie 36.893927 Kaylie [facility] Respiratory rate 16 /min 16 /min [facility] Oxygen 96 % 96 % [place] saturation in Medical Arterial blood Center by Pulse oximetry Heart rate 71 /min 71 /min [facility] Diastolic blood 66 mm[Hg] 66 mm[Hg] [facility] Systolic blood 115 mm[Hg] 115 mm[Hg] [facility] Body temperature 36.249048 Kaylie 36.083739 Kaylie [facility] Respiratory rate 16 /min 16 /min [facility] Oxygen 96 % 96 % [facility] saturation in Medical Arterial blood Center by Pulse oximetry Heart rate 75 /min 75 /min [facility] Diastolic blood 74 mm[Hg] 74 mm[Hg] [facility] [place] Systolic blood 121 mm[Hg] 121 mm[Hg] [facility] [place] Body temperature 36.057672 Kaylie 36.085475 Kaylie [facility] Respiratory rate 17 /min 17 /min [facility] Oxygen 98 % 98 % [facility] saturation in Medical Arterial blood Center by Pulse oximetry Heart rate 84 /min 84 /min [facility] Diastolic blood 70 mm[Hg] 70 mm[Hg] [facility] [place] Systolic blood 118 mm[Hg] 118 mm[Hg] [facility] [place] Body temperature 37.907419 Kaylie 37.880132 Kaylie [facility] Respiratory rate 18 /min 18 /min [facility] Oxygen 97 % 97 % [facility] saturation in Medical Arterial blood Center by Pulse oximetry Heart rate 86 /min 86 /min [facility] Diastolic blood 87 mm[Hg] 87 mm[Hg] [facility] pressure [facility] [place] Systolic blood 136 mm[Hg] 136 mm[Hg] [facility] Body temperature 36.612367 Kaylie 36.881013 Kaylie [facility] Respiratory rate 18 /min 18 /min [facility] Heart rate 89 /min 89 /min [facility] Diastolic blood 90 mm[Hg] 90 mm[Hg] [facility] pressure [facility] Center Systolic blood 134 mm[Hg] 134 mm[Hg] [facility] Body temperature 36.874238 Kaylie 36.462999 Kaylie [facility] Respiratory rate 18 /min 18 /min [facility] Heart rate 94 /min 94 /min [facility] Diastolic blood 83 mm[Hg] 83 mm[Hg] [facility] pressure [facility] Center Systolic blood 136 mm[Hg] 136 mm[Hg] [facility] [place] Body temperature 37.844669 Kaylie 37.637276 Kaylie [facility] Respiratory rate 20 /min 20 /min [facility] Heart rate 87 /min 87 /min [facility] Diastolic blood 73 mm[Hg] 73 mm[Hg] [facility] Systolic blood 132 mm[Hg] 132 mm[Hg] [facility] Body temperature 36.813804 Kaylie 36.589741 Kaylie [facility] Respiratory rate 20 /min 20 /min [facility] Heart rate 82 /min 82 /min [facility] Diastolic blood 81 mm[Hg] 81 mm[Hg] [facility] Systolic blood 123 mm[Hg] 123 mm[Hg] [facility] Oxygen 94 % 94 % [place] saturation in Medical Arterial blood Center by Pulse oximetry Body temperature 36.660140 Kaylie 36.649149 Kaylie [facility] Respiratory rate 17 /min 17 /min [facility] Heart rate 91 /min 91 /min [facility] Diastolic blood 79 mm[Hg] 79 mm[Hg] [facility] [place] Systolic blood 143 mm[Hg] 143 mm[Hg] [facility] Body weight 104.719199 kg 104.593696 kg [facility] Body temperature 36.226796 Kaylie 36.915333 Kaylie [facility] Respiratory rate 17 /min 17 /min [facility] Oxygen 98 % 98 % [facility] [place] saturation in Medical Arterial blood Center by Pulse oximetry Heart rate 94 /min 94 /min [facility] Diastolic blood 74 mm[Hg] 74 mm[Hg] [facility] [place] Systolic blood 106 mm[Hg] 106 mm[Hg] [facility] Body temperature 36.300334 Kaylie 36.068631 Kaylie [facility] Respiratory rate 17 /min 17 /min [facility] Oxygen 96 % 96 % [facility] [place] saturation in Medical Arterial blood Center by Pulse oximetry Heart rate 98 /min 98 /min [facility] Diastolic blood 76 mm[Hg] 76 mm[Hg] [facility] Systolic blood 134 mm[Hg] 134 mm[Hg] [facility] Respiratory rate 18 /min 18 /min [facility] Oxygen 97 % 97 % [facility] [place] saturation in Medical Arterial blood Center by Pulse oximetry Heart rate 78 /min 78 /min [facility] Diastolic blood 68 mm[Hg] 68 mm[Hg] [facility] pressure [facility] Center Systolic blood 126 mm[Hg] 126 mm[Hg] [facility] Body temperature 36.033868 Kaylie 36.257612 Kaylie [facility] Respiratory rate 18 /min 18 /min [facility] Oxygen 100 % 100 % [facility] [place] saturation in Medical Arterial blood Center by Pulse oximetry Heart rate 71 /min 71 /min [facility] Diastolic blood 66 mm[Hg] 66 mm[Hg] [facility] Systolic blood 125 mm[Hg] 125 mm[Hg] [facility] Body temperature 36.665263 Kaylie 36.649024 Kaylie [facility] Respiratory rate 18 /min 18 /min [facility] Oxygen 99 % 99 % [place] saturation in Medical Arterial blood Center by Pulse oximetry Heart rate 89 /min 89 /min [facility] Diastolic blood 81 mm[Hg] 81 mm[Hg] [facility] Systolic blood 132 mm[Hg] 132 mm[Hg] [facility] [place] Body temperature 36.534898 Kaylie 36.736767 Kaylie [facility] Respiratory rate 17 /min 17 /min [facility] Oxygen 97 % 97 % [facility] [place] saturation in Medical Arterial blood Center by Pulse oximetry Heart rate 86 /min 86 /min [facility] Diastolic blood 50 mm[Hg] 50 mm[Hg] [facility] Systolic blood 80 mm[Hg] 80 mm[Hg] [facility] [place] Body temperature 37.922474 Kaylie 37.160185 Kaylie [facility] Respiratory rate 18 /min 18 /min [facility] Oxygen 91 % 91 % [facility] [place] saturation in Medical Arterial blood Center by Pulse oximetry Heart rate 82 /min 82 /min [facility] Diastolic blood 56 mm[Hg] 56 mm[Hg] [facility] Systolic blood 103 mm[Hg] 103 mm[Hg] [facility] [place] Body weight 94.494487 kg 94.006430 kg [facility] [place] Body temperature 37.237547 Kaylie 37.699116 Kaylie [facility] Respiratory rate 18 /min 18 /min [facility] Oxygen 88 % 88 % [facility] [place] saturation in Medical Arterial blood Center by Pulse oximetry Heart rate 80 /min 80 /min [facility] Body height 177.084837 cm 177.558118 cm [facility] Diastolic blood 74 mm[Hg] 74 mm[Hg] [facility] pressure Medical Center Systolic blood 104 mm[Hg] 104 mm[Hg] [facility] Body mass index 29.8 kg/m2 29.8 kg/m2 [facility] (BMI) [Ratio] Medical Center Body temperature 36.032300 Kaylie 36.219089 Kaylie [facility] Respiratory rate 18 /min 18 /min [facility] Oxygen 97 % 97 % [place] saturation in Medical Arterial blood Center by Pulse oximetry Heart rate 98 /min 98 /min [facility] [facility] Diastolic blood 72 mm[Hg] 72 mm[Hg] [facility] Systolic blood 133 mm[Hg] 133 mm[Hg] [facility] Body temperature 36.284694 Kaylie [id number] Kaylie [facility] Respiratory rate 18 /min 18 /min [facility] Oxygen 98 % 98 % [facility] saturation in Medical Arterial blood Center by Pulse oximetry Heart rate 83 /min 83 /min [facility] Diastolic blood 85 mm[Hg] 85 mm[Hg] [facility] Systolic blood 132 mm[Hg] 132 mm[Hg] [facility] Body temperature [id number] Kaylie [id number] Kaylie [facility] Respiratory rate 16 /min 16 /min [facility] Oxygen 96 % 96 % [facility] [facility] saturation in Medical Arterial blood Center by Pulse oximetry Heart rate 88 /min 88 /min [facility] Diastolic blood 70 mm[Hg] 70 mm[Hg] [facility] Systolic blood 120 mm[Hg] 120 mm[Hg] [facility] ID Date Data Source [id number] 02/27/2020 10:28:08 PM EDT [facility] Name Value Range Interpretation Code Description Data Source(s) Body weight Measured 233 lb 233 lb [facility] Patient Treatment Plan of Care Planned Activity Planned Date Details Description Data Source (s) 0.9% NaCl IV 08/16/2019 05:17:42 PM [facility] 0.9% [facility]
[2020-03-27] MEDS ORDERED: LACTATED RINGERS SOLUTION 1000 ML INFUS.BAG IV ONE (20:26)
[2020-03-27 20:59] LABS: BASO % 1.2 % (0-2.0); EOS % 3.4 % (0-4.5); HEMATOCRIT 30.8 % (35.4-49); HEMOGLOBIN 9.7 GM/dL (11.7-16.9); MCH 26.6 pg (25.7-33.7); MCHC 31.5 g/dl (32.0-35.9); MEAN CELL VOLUME 84.2 fl (80-96); MEAN PLT VOLUME 7.4 fl (7.5-11.1); MONO % 7.9 % (3.8-10.2); NEUT % 54.5 % (42.8-82.8); PLATELET COUNT 322 K/MM3 (134-434); RBC 3.66 M/mm3 (4.00-5.60); RDW 21.1 % (11.9-15.9); WHITE BLOOD COUNT 5.4 K/mm3 (4.0-10.0)
[2020-03-27 21:33] LABS: BILIRUBIN,TOTAL 0.2 mg/dL (0.2-1); BLOOD UREA NITROGEN 7.7 mg/dL (7-18); CALCIUM 9.3 mg/dL (8.5-10.1); CREATININE 0.5 mg/dL (0.55-1.3); MAGNESIUM 1.6 mg/dL (1.8-2.4); POTASSIUM 3.3 mmol/L (3.5-5.1); TOT PROT 6.4 g/dl (6.4-8.2)
[2020-03-27 22:11] LABS: ANISOCYTOSIS 2+; MACROCYTOSIS 1+; PLATELET ESTIMATE NORMAL
--- NOTE | 2020-03-27 22:12 | PDOC ---
Documentation entered by Mat Shaw SCRIBE, acting as scribe for Brandi Biswas MD. Brandi Biswas MD: This documentation has been prepared by the hollandibColin delatorre Xhesika, SCRIBE, under my direction and personally reviewed by me in its entirety. I confirm that the documentation accurately reflects all work, treatment, procedures, and medical decision making performed by me. Attending Attestation - Resident Resident Name: Kathie Higgins - ED Attending Attestation I have performed the following: I have examined & evaluated the patient, The case was reviewed & discussed with the resident, I agree w/resident's findings & plan, Exceptions are as noted - HPI HPI: 03/27/20 20:15 The patient is a 65 year old male with past medical history significant for chronic back pain, mesothelioma, HTN and HLD who presents to the emergency department BIBA for lower back pain, etoh intoixation. pt h/o etoh abuse, near daily visits to ED. Pt was found to be hypotensive at triage evaluation with SBP in 70s, improved to 90s without intervention. Patient currently denies all acute complaints. Admits to etoh use today. Only complaining of his typical chronic back pain but states otherwise he feels fine. Allergies: Fish containing products - Physicial Exam PE: 03/27/20 22:09 General: +AOB HEENT: NCAT Chest: CTAB, no wheezes or rales CVS: + s1 s2, RRR - Medical Decision Making 03/27/20 22:10 65 yo M p/w etoh intox and hypotension without any acute complaints or infectious complaints, currently asking for something to eat, hypotension likely 2/2 etoh use and decreased PO intake, much lower suspicion for infectious etiology. No chest pain or SOB to suggest ACS or PNA. Plan: -labs -IVF -reassess This clinical encounter is taking place during a federal and state health care emergency attributable to the novel [place]er Virus pandemic. The [place] of the Department of Health and Human Services has declared, pursuant to the Public Health Service Act 319F-3 (42 U.S.C. 247d-6d), that a covered persons activities related to medical countermeasures against COVID-19 will be immune from liability under Federal and State law. 03/28/20 02:39 Labs at baseline. Will recheck BP and if improved will d/c with return precautions, recommend PMD f/u. Discharge - Discharge Information Problems reviewed: Yes Clinical Impression/Diagnosis: Intoxication, Alcohol abuse Chronic back pain Qualifiers: Back pain location: low back pain Back pain laterality: unspecified Sciatica presence: unspecified whether sciatica present Qualified Code(s): M54.5 - Low back pain Disposition: HOME - Follow up/Referral Referrals: [facility] [Provider Group] - Patient Discharge Instructions Additional Instructions: Discharge Instructions: You were seen in the emergency department for alcohol intoxication. Your blood tests did not show any concerning findings. You were given IV fluids for hydration. Please follow up with a regular doctor within the next week. You have been given contact information for the [facility] [place] [facility]. It is very important that you stop drinking alcohol. Consider going to detox at [address] [place] [address] for assistance. Seek immediate care for worsening symptoms, difficulty breathing, chest pain, neurological symptoms (such as one-sided weakness/numbness, changes in your speech, confusion, facial droop) or for any other medical emergency. - Post Discharge Activity
[2020-03-28 05:12] VITALS: TEMP 98.2
[2020-03-28 06:20] VITALS: BP 151/92; PULSE 92
[2020-03-28] MEDS ORDERED: ARTIFICIAL TEARS (POLYVINYL ALCOHOL) OPTH DROPS OU ONE (09:41)
== END 2020-03-28 10:30 | disposition home or self-care (01) ==
LOC: JER 19:42
DX: M54.5 Low back pain (principal); F10.129 Alcohol abuse with intoxication, unspecified
CPT/HCPCS: 36415; 80053; 83735; 85025; 99284-25

== ENCOUNTER 2020-03-28 19:24 | Emergency (ER) | payer OTHER ==
[2020-03-28 19:32] VITALS: TEMP 99; BMI 37.3
--- NOTE | 2020-03-28 19:33 | PDOC ---
Rapid Medical Evaluation Time Seen by Provider: 03/28/20 19:27 Medical Evaluation: Allergies Allergy/AdvReac Type Severity Reaction Status Date / Time Fish Containing Products Allergy Mild Swelling Verified 03/25/20 17:45 No Known Drug Allergies Allergy Verified 03/25/20 17:45 03/28/20 19:30 I performed a brief in-person evaluation of this patient. Pt is a 65 y/o male well known to the ED who presents for low back pain. Pt denies any falls. Pt states that he is not intoxicated. Pertinent physical exam findings: pt able to sit up on his own and transfer to wheelchair. I have ordered the following: none Patient to proceed to ED for further evaluation. Discharge Disposition - Diagnosis Low back pain - Referrals - Patient Instructions - Post Discharge Activity
--- OUTSIDE RECORDS SUMMARY | 2020-03-28 20:34 | XMS ---
:1955 [facility] Providers Name Role Phone ZACK KRAUS Unavailable Unavailable [facility], [id number] Unavailable Unavailable ED STAFF PHYSICIAN, JOSE Unavailable Unavailable ED STAFF PHYSICIAN Unavailable Unavailable LANOIX YAN Unavailable Unavailable [place] SCHNEIDER Unavailable Unavailable ED STAFF PHYSICIAN, LEONEL Unavailable Unavailable ED STAFF PHYSICIAN, AGUILAR Unavailable Unavailable ED STAFF PHYSICIAN Unavailable Unavailable PAULINO Ellis Unavailable Unavailable ED STAFF PHYSICIAN Unavailable Unavailable ED STAFF PHYSICIAN, FRANCISCA Unavailable Unavailable KELLI TUYET TUYET Unavailable Unavailable LITZY WILSON Unavailable Unavailable SON FRANCOIS P Unavailable Unavailable GRAVES ADITHYA W Unavailable Unavailable [facility], [id number] Unavailable Unavailable ED STAFF PHYSICIAN, STAFF Unavailable Unavailable RACHEL WOODS Unavailable Unavailable AYANA RESENDEZ MD Unavailable Unavailable [...] is protected by Article 27-F of the [facility] Public Health law. If you continue you may haveaccess to information: Regarding HIV / AIDS; Provided by facilities licensed or operated by the [facility] Office of Mental Health; or Provided by the [facility] Office for People With Developmental Disabilities. If such information is present, then the following [facility] mandated warning applies: This information has been [...] law may result in a fine or correction sentence or both. A general authorization for the release of medical or other information is NOT sufficient authorization for further disclosure. Encounters Encounter Providers Location Date Indications Data Source(s ) Emergency Attender: ARIC Sage 03/26/2020 [facility] WAttender: 07:[facility] ST[facility] ED STAFF EDT - PHYSICIANAdmitter: 03/26/2020 [facility]JI 11:23:00 PM WReferrer: EDT ZUNASSIGNED Patient discharged. Emergency Attender: SON Sage 03/24/2020 05:26:00 PM [facility] Broussard: STAFF ED STAFF EDT - 03/24/2020 [facility] PHYSICIANAdmitter: SON 09:14:00 PM EDT ALESSANDRO Teerer: STAFF ED STAFF PHYSICIAN Patient discharged. Emergency Attender: SON Sage 03/23/2020 09:54:00 PM [facility] PAttender: STAFF ED STAFF EDT - 03/24/2020 [facility] PHYSICIANAdmitter: SON 05:54:00 AM EDT ALESSANDRO PReferrer: ZUNASSIGNED Patient discharged. Emergency Attender: JSOE YOUNG STAFF H 03/23/2020 05:47:00 PM [place] PHYSICIANAttender: STAFF ED EDT - 03/23/2020 [facility] STAFF PHYSICIANAdmitter: 09:35:00 PM EDT [place] ED STAFF PHYSICIANReferrer: ZUNASSIGNED Patient discharged. Emergency Attender: SON Sage 03/22/2020 06:46:00 PM [place] PAttender: STAFF ED STAFF EDT - 03/23/2020 [facility] PHYSICIANAdmitter: SON 06:04:00 AM EDT ALESSANDRO PReferrer: ZUNASSIGNED Patient discharged. Outpatient Attender: [id number] [facility] 03/19/2020 06:09:28 PM I ([facility] EDT Collaborative) Patient admitted. Inpatient Attender: ZACK DIXON H-HAL6 03/16/2020 05:57:0 0 [facility] HAttender: STAFF ED STAFF PM EDT - 03/20/2020 [facility] PHYSICIANAdmitter: ZACK 01:00:00 PM EDT VIANCA DIXON HReferrer: ZACK DIXON H Patient discharged. Emergency Attender: SON Sage 03/13/2020 10:53:00 PM [facility] Asherder: STAFF ED STAFF EDT - 03/14/2020 [facility] PHYSICIANAdmitter: SON 09:59:00 AM EDT ALESSANDRO PReferrer: ZUNASSIGNED Patient discharged. Emergency Attender: SON Sage 03/12/2020 11:27:00 PM [facility] PAttender: STAFF ED STAFF EDT - 03/13/2020 [facility] PHYSICIANAdmitter: SON 09:26:00 AM EDT ALESSANDRO PReferrer: ZUNASSIGNED Patient discharged. Emergency Attender: SON Sage 03/11/2020 07:35:00 PM [facility] PAttender: STAFF ED STAFF EDT - 03/12/2020 [facility] PHYSICIANAdmitter: SON 06:22:00 AM EDT ALESSANDRO PReferrer: STAFF ED STAFF PHYSICIAN Patient discharged. Emergency Attender: ARIC Sage 03/07/2020 12:09:00 AM [facility] Karen: STAFF ED STAFF EDT - 03/07/2020 [facility] PHYSICIANAdmitter: ARIC 05:31:00 AM EDT ADITHYA WReferrer: ZUNASSIGNED Patient discharged. Emergency Attender: LITZY PALOMARES H-ER 03/05/2020 07:16:00 [facility] LITZY CAttender: STAFF ED PM EDT - 03/05/2020 [facility] STAFF PHYSICIANAdmitter: 08:52:00 PM EDT LITZY MCGHEE CReferrer: ZUNASSIGNED Patient discharged. Emergency Attender: ED STAFF H 03/03/2020 07:52:00 PM [facility] PHYSICIANAttender: STAFF ED EDT - 03/04/2020 [facility] STAFF PHYSICIANAdmitter: ED 06:50:00 AM EDT STAFF PHYSICIANReferrer: STAFF ED STAFF PHYSICIAN Patient discharged. Emergency Attender: JOSE ED STAFF 03/01/2020 12:31:00 PM [facility] PHYSICIANAttender: STAFF ED EDT - 03/01/2020 [facility] STAFF PHYSICIANAdmitter: 11:42:00 PM EDT [place] ED STAFF PHYSICIANReferrer: ZUNASSIGNED Patient discharged. Emergency Attender: ED STAFF 02/29/2020 12:29:00 PM [facility] PHYSICIANAttender: STAFF ED EDT - 02/29/2020 [facility] STAFF PHYSICIANAdmitter: ED 06:19:00 PM EDT STAFF PHYSICIANReferrer: ZUNASSIGNED Patient discharged. Emergency Attender: LITZY MCGHEE 02/28/2020 08:42 :00 PM [facility] Vane: STAFF ED STAFF EDT - 02/29/2020 [facility] PHYSICIANAdmitter: LITZY 05:27:00 AM EDT JELANI MCGHEE CReferrer: ZUNASSIGNED Patient discharged. Emergency Attender: JOSE ED STAFF H 02/28/2020 11:14:00 AM [facility] PHYSICIANAttender: STAFF ED EDT - 02/28/2020 [facility] STAFF PHYSICIANAdmitter: 07:32:00 PM EDT [place] ED STAFF PHYSICIANReferrer: ZUNASSIGNED Patient discharged. Emergency Attender: ED STAFF H 02/27/2020 08:25:00 PM [facility] PHYSICIANAttender: STAFF ED EDT - 02/28/2020 [facility] STAFF PHYSICIANAdmitter: ED 07:04:00 AM EDT STAFF PHYSICIANReferrer: ZUNASSIGNED Patient discharged. Inpatient Attender: LEWIS SALEH1D 02/16/2020 01:37:00 [facility] RES[facility]Z PM EDT - [address] [place] [address] 10:27:00 PM EDT Patient discharged. Outpatient ST 02/16/2020 10:53:00 AM EDT - [address] [place] [address] 01:59:00 PM EDT Patient discharged. Emergency Attender: ED STAFF H 02/09/2020 09:43:00 PM [facility] PHYSICIANAttender: STAFF ED EDT - 02/10/2020 [facility] STAFF PHYSICIANAdmitter: ED 06:48:00 AM EDT STAFF PHYSICIANReferrer: ZUNASSIGNED Patient discharged. Emergency Attender: STAFF ED STAFF H 02/09/2020 02:45:00 AM [facility] PHYSICIAN EDT - 02/09/2020 06:55:00 Center AM EDT Patient discharged. Emergency Attender: LITZY Sage 02/04/2020 11:24 :00 AM [facility] CAtthierno: STAFF ED STAFF EDT - 02/04/2020 [facility] PHYSICIANAdmitter: LITZY 03:35:00 PM EDT JELANI Horowitz Patient discharged. Emergency Attender: ED STAFF H 01/25/2020 06:06:00 PM [facility] PHYSICIANAttender: STAFF ED EDT - 01/26/2020 [facility] STAFF PHYSICIANAdmitter: ED 06:12:00 AM EDT STAFF PHYSICIAN Patient discharged. Emergency Attender: ARIC Sage 01/24/2020 08:18:00 PM [facility] Karen: STAFF ED STAFF EDT - 01/25/2020 [facility] PHYSICIANAdmitter: ARIC 06:04:00 AM EDT ADITHYA Duenas Patient discharged. Emergency Attender: JOSE ED STAFF H 01/24/2020 01:40:00 PM [facility] PHYSICIANAttender: STAFF ED EDT - 01/24/2020 [facility] STAFF PHYSICIANAdmitter: 05:56:00 PM EDT JOSE ED STAFF PHYSICIAN Patient discharged. Emergency Attender: STAFF ED STAFF H 01/20/2020 03:33:00 PM [facility] PHYSICIAN EDT - 01/20/2020 06:41:00 [place] PM EDT Patient discharged. Emergency Attender: JOSE ED STAFF H 01/19/2020 11:13:00 AM [facility] PHYSICIANAttender: STAFF ED EDT - 01/19/2020 [facility] STAFF PHYSICIANAdmitter: 03:48:00 PM EDT [place] ED STAFF PHYSICIAN Patient discharged. Emergency Attender: SON FRANCOIS 01/18/2020 09:44:00 PM [facility] PAttenthaddeus: STAFF ED STAFF EDT - 01/19/2020 [facility] PHYSICIANAdmitter: SON 06:28:00 AM EDT ALESSANDRO P Patient discharged. Outpatient Attender: [email or web address] [facility] 01/14/2020 01:13:05 PM I ([facility] EDT Collaborative) Patient admitted. Emergency Attender: JOSE ED STAFF 01/06/2020 01:03:00 PM [facility] PHYSICIANAttender: STAFF ED EDT - 01/06/2020 [facility] STAFF PHYSICIANAdmitter: 09:00:00 PM EDT [place] ED STAFF PHYSICIAN Patient discharged. Emergency Attender: STAFF ED STAFF 01/05/2020 08:46:00 PM [facility] PHYSICIAN EDT - 01/06/2020 09:01:00 [facility] AM EDT Patient discharged. Emergency Attender: JOSE ED STAFF 01/05/2020 02:24:00 PM [facility] PHYSICIANAttender: STAFF ED EDT - 01/05/2020 [facility] STAFF PHYSICIANAdmitter: 05:02:00 PM EDT [place] ED STAFF PHYSICIAN Patient discharged. Emergency Attender: STAFF ED STAFF 01/03/2020 08:50:00 PM [facility] PHYSICIAN EDT - 01/04/2020 06:32:00 [facility] AM EDT Patient discharged. Emergency Attender: ARIC Sage 12/30/2019 08:35:00 PM [facility] Karen: STAFF ED STAFF EDT - 12/31/2019 [facility] PHYSICIANAdmitter: ARIC 06:54:00 AM EDT ADITHYA Duenas Patient discharged. Emergency Attender: ARIC Sage 12/30/2019 04:36:00 PM [facility] Karen: STAFF ED STAFF EDT - 12/31/2019 [facility] PHYSICIANAdmitter: ARIC 06:55:00 AM EDT ADITHYA W Patient discharged. Emergency Attender: LITZY Sage 12/29/2019 03:42 :00 PM [facility] Vane: STAFF ED STAFF EDT - 12/29/2019 [facility] PHYSICIANAdmitter: LITZY 08:14:00 PM EDT JELANI MCGHEE C Patient discharged. Emergency Attender: STAFF ED STAFF 12/28/2019 10:09:00 PM [facility] PHYSICIAN EDT - 12/29/2019 06:04:00 [facility] AM EDT Patient discharged. Emergency Attender: ARIC Sage 12/28/2019 01:13:00 AM [facility] ED STAFF EDT - 12/28/2019 [facility] PHYSICIANAdmitter: ARIC 09:44:00 AM EDT ADITHYA W Patient discharged. Emergency Attender: LITZY Sage 12/27/2019 06:29 :00 PM [facility] Vane: ARIC HAJI EDT - 12/27/2019 [facility] WAttenthaddeus: STAFF ED STAFF 10:06:00 PM EDT PHYSICIANAdmitter: LITZY Horowitz Patient discharged. Emergency Attender: JOSE ED STAFF 12/27/2019 12:06:00 PM [facility] PHYSICIANAttender: LITZY YOUNGT - 12/27/2019 [facility] JELANI Cifuentes: 10:05:00 PM EDT STAFF ED STAFF PHYSICIANAdmitter: JOSE ED STAFF PHYSICIAN Patient discharged. Emergency Attender: ARIC HAJI -ER 12/24/2019 11:12:00 [facility] Karen: STAFF ED STAFF PM EDT - 12/25/2019 [facility] PHYSICIANAdmitter: ARIC 05:53:00 AM EDT ADITHYA W Patient discharged. Emergency Attender: LITZY Sage 12/22/2019 04:41 :00 PM [facility] STAFF EDT - 12/23/2019 [facility] PHYSICIANAdmitter: LITZY 06:19:00 AM EDT JELANI Horowitz Patient discharged. Emergency Attender: LITZY Sage 12/20/2019 08:52 :00 PM [facility] ST[facility]FF ED STAFF EDT - 12/20/2019 [facility] PHYSICIANAdmitter: LITZY 11:29:00 PM EDT JELANI Horowitz Patient discharged. Emergency Attender: ARIC Sage 12/18/2019 05:15:00 AM [facility] Karen: STAFF ED STAFF EDT - 12/18/2019 [facility] PHYSICIANAdmitter: ARIC 06:04:00 AM EDT ADITHAY Duenas Patient discharged. Emergency Attender: LITZY Sage 12/17/2019 04:35 :00 PM [facility] CAtthierno: STAFF ED STAFF EDT - 12/18/2019 [facility] PHYSICIANAdmitter: LITZY 03:16:00 AM EDT JELANI Hammond: STAFF ED STAFF PHYSICIAN Patient discharged. Emergency Attender: ARIC Sage 12/16/2019 07:15:00 PM [facility] Karen: STAFF ED STAFF EDT - 12/17/2019 [facility] PHYSICIANAdmitter: ARIC 06:39:00 AM EDT ADITHYA Tyler: STAFF ED STAFF PHYSICIAN Patient discharged. Emergency Attender: ED STAFF 12/16/2019 02:10:00 PM [facility] PHYSICIANAttender: STAFF ED EDT - 12/16/2019 [facility] STAFF PHYSICIANAdmitter: ED 05:38:00 PM EDT STAFF PHYSICIAN Patient discharged. Emergency Attender: JOSE ED STAFF 12/14/2019 02:52:00 PM [facility] PHYSICIANAttender: ED STAFF EDT - 12/14/2019 [facility] PHYSICIANAttender: STAFF ED 09:24:00 PM EDT STAFF PHYSICIANAdmitter: JOSE ED STAFF PHYSICIAN Patient discharged. Emergency Attender: FRANCISCA ED STAFF 12/10/2019 06:39:00 PM [facility] PHYSICIANAttender: RAIC EDT - 12/10/2019 [facility] ADITHYA Jones: STAFF ED 09:42:00 PM EDT STAFF PHYSICIANAdmitter: FRANCISCA ED STAFF PHYSICIAN Patient discharged. Emergency Attender: ED STAFF 12/09/2019 02:37:00 PM [facility] PHYSICIANAttender: STAFF ED EDT - 12/09/2019 [facility] STAFF PHYSICIANAdmitter: ED 04:39:00 PM EDT STAFF PHYSICIAN Patient discharged. Emergency Attender: ARIC Sage 12/08/2019 10:33:00 PM [facility] Karen: STAFF ED STAFF EDT - 12/09/2019 [facility] PHYSICIANAdmitter: ARIC 06:03:00 AM EDT ADITHYA W Patient discharged. Emergency Attender: LITZY Sage 12/08/2019 01:04 :00 PM [facility] Vane: STAFF ED STAFF EDT - 12/08/2019 [facility] PHYSICIANAdmitter: LITZY 04:42:00 PM EDT JELANI MCGHEE C Patient discharged. Emergency Attender: STAFF ED STAFF 12/08/2019 01:26:00 AM [facility] PHYSICIAN EDT - 12/08/2019 03:22:00 [place] AM EDT Patient discharged. Emergency Attender: ED STAFF 12/07/2019 02:19:00 PM [facility] PHYSICIANAttender: STAFF ED EDT - 12/07/2019 [facility] STAFF PHYSICIANAdmitter: ED 06:57:00 PM EDT STAFF PHYSICIAN Patient discharged. Emergency Attender: LITZY Sage 12/06/2019 06:10 :00 PM [facility] Vane: STAFF ED STAFF EDT - 12/07/2019 [facility] PHYSICIANAdmitter: LITZY 12:43:00 AM EDT JELANI Horowitz Patient discharged. Emergency Attender: ARIC Sage 12/04/2019 08:59:00 PM [facility] Karen: STAFF ED STAFF EDT - 12/05/2019 [facility] PHYSICIANAdmitter: ARIC 05:48:00 AM EDT ADITHYA LERMAeferrer: STAFF ED STAFF PHYSICIAN Patient discharged. Emergency Attender: ARIC Sage 12/03/2019 08:01:00 PM [facility] Karen: STAFF ED STAFF EDT - 12/03/2019 [facility] PHYSICIANAdmitter: ARIC 10:34:00 PM EDT ADITHYA W Patient discharged. Emergency Attender: ED STAFF 12/03/2019 01:49:00 PM [facility] PHYSICIANAttender: STAFF ED EDT - 12/03/2019 [facility] STAFF PHYSICIANAdmitter: ED 05:15:00 PM EDT STAFF PHYSICIANReferrer: STAFF ED STAFF PHYSICIAN Patient discharged. Emergency Attender: STAFF ED STAFF H 12/02/2019 08:09:00 PM [facility] PHYSICIAN EDT - 12/03/2019 07:06:00 Center AM EDT Patient discharged. Emergency Attender: ED STAFF H 11/30/2019 04:27:00 PM [facility] PHYSICIANAttender: STAFF ED EDT - 11/30/2019 [facility] STAFF PHYSICIANAdmitter: ED 11:51:00 PM EDT STAFF PHYSICIAN Patient discharged. Emergency Attender: STAFF ED STAFF 11/30/2019 03:04:00 AM [facility] PHYSICIAN EDT - 11/30/2019 07:04:00 [place] AM EDT Patient discharged. Emergency Attender: LITZY MCGHEE 11/29/2019 04:39 :00 PM [facility] CAttenthaddeus: STAFF ED STAFF EDT - 11/29/2019 [facility] PHYSICIANAdmitter: LITZY 10:06:00 PM EDT JELANI Horowitz Patient discharged. Emergency Attender: ARIC HAJI 11/25/2019 09:53:00 PM [facility] WAtthierno: STAFF ED STAFF EDT - 11/26/2019 [facility] PHYSICIANAdmitter: ARIC 06:08:00 AM EDT ADITHYA Duenas Patient discharged. Emergency Attender: ED STAFF 11/25/2019 12:05:00 PM [facility] PHYSICIANAttender: Josue EDT - [facility]/2019 [facility] MDA[facility] STAFF 03:49:00 PM EDT ED STAFF PHYSICIANAdmitter: ED STAFF PHYSICIAN Patient discharged. Emergency Attender: STAFF ED STAFF 11/24/2019 10:37:00 PM [facility] PHYSICIAN EDT - 11/25/2019 01:28:00 [place] AM EDT Patient discharged. Emergency Attender: JOSE ED STAFF 11/24/2019 02:04:00 PM [facility] PHYSICIANAttender: LITZY EDT - 11/24/2019 [facility] JELANI MCGHEE CAttender: 05:13:00 PM EDT STAFF ED STAFF PHYSICIANAdmitter: JOSE ED STAFF PHYSICIAN Patient discharged. Emergency Attender: ED STAFF 11/23/2019 05:20:00 PM [facility] PHYSICIANAttender: STAFF ED EDT - 11/24/2019 [facility] STAFF PHYSICIANAdmitter: ED 05:19:00 AM EDT STAFF PHYSICIAN Patient discharged. Emergency Attender: LITZY MCGHEE 11/22/2019 08:30 :00 PM [facility] CAttenthaddeus: STAFF ED STAFF EDT - 11/23/2019 [facility] PHYSICIANAdmitter: LITZY 06:02:00 AM EDT JELANI Horowitz Patient discharged. Emergency Attender: LITZY Sage 11/22/2019 01:37 :00 PM [facility] STAFF ED STAFF EDT - 11/22/2019 [facility] PHYSICIANAdmitter: LITZY 05:57:00 PM EDT JELANI Horowitz Patient discharged. Emergency Attender: LITZY Sage 11/20/2019 03:54 :00 PM [facility] ST[facility]FF ED STAFF EDT - 11/20/2019 [facility] PHYSICIANAdmitter: LITZY 07:33:00 PM EDT JELANI Horowitz Patient discharged. Emergency Attender: ARIC Sage 11/18/2019 01:25:00 PM [facility] Karen: STAFF ED STAFF EDT - 11/19/2019 [facility] PHYSICIANAdmitter: ARIC 01:40:00 AM EDT ADITHYA Duenas Patient discharged. Emergency Attender: STAFF ED STAFF 11/16/2019 08:42:00 PM [facility] PHYSICIAN EDT - 11/17/2019 05:38:00 [facility] AM EDT Patient discharged. Emergency Attender: ED STAFF H 11/16/2019 01:46:00 PM [facility] PHYSICIANAttender: ED STAFF EDT - 11/16/2019 [facility] PHYSICIANAttender: STAFF ED 05:41:00 PM EDT STAFF PHYSICIANAdmitter: ED STAFF PHYSICIAN Patient discharged. Emergency Attender: JOSE ED STAFF 11/10/2019 04:25:00 PM [facility] PHYSICIANAttender: STAFF ED EDT - 11/10/2019 [facility] STAFF PHYSICIANAdmitter: 08:35:00 PM EDT JOSE ED STAFF PHYSICIAN Patient discharged. Emergency Attender: JOSE ED STAFF 11/08/2019 02:38:00 PM [facility] PHYSICIANAttender: STAFF ED EDT - 11/08/2019 [facility] STAFF PHYSICIANAdmitter: 10:15:00 PM EDT JOSE ED STAFF PHYSICIAN Patient discharged. Emergency Attender: ARIC Sage 11/07/2019 10:18:00 PM [facility] Karen: STAFF ED STAFF EDT - 11/14/2019 [facility] PHYSICIANAdmitter: ARIC 12:48:00 AM EDT ADITHYA Tyler: STAFF ED STAFF PHYSICIAN Patient discharged. Emergency Attender: ED STAFF Alona 11/05/2019 01:32:00 PM [facility] PHYSICIANAttender: STAFF ED EDT - 11/05/2019 [facility] STAFF PHYSICIANAdmitter: ED 07:57:00 PM EDT STAFF PHYSICIAN Patient discharged. Emergency Attender: STAFF ED STAFF H 11/03/2019 09:29:00 PM [facility] PHYSICIAN EDT - 11/03/2019 11:21:00 [facility] PM EDT Patient discharged. Emergency Attender: ED STAFF H 11/02/2019 07:07:00 PM [facility] PHYSICIANAttender: STAFF ED EDT - 11/03/2019 [facility] STAFF PHYSICIANAdmitter: ED 12:39:00 AM EDT STAFF PHYSICIAN Patient discharged. Emergency Attender: JOSE ED STAFF H 11/01/2019 02:09:00 PM [facility] PHYSICIANAttender: STAFF ED EDT - 11/01/2019 [facility] STAFF PHYSICIANAdmitter: 09:18:00 PM EDT [place] ED STAFF PHYSICIAN Patient discharged. Emergency Attender: ED STAFF H 10/31/2019 06:02:00 PM [facility] PHYSICIANAttender: ED STAFF EDT - 10/31/2019 [facility] PHYSICIANAttender: STAFF ED 10:38:00 PM EDT STAFF PHYSICIANAdmitter: ED STAFF PHYSICIAN Patient discharged. Emergency Attender: ARIC Sage 10/30/2019 02:58:00 PM [facility] Karen: STAFF ED STAFF EDT - 10/31/2019 [facility] PHYSICIANAdmitter: ARIC 02:24:00 AM EDT ADITHYA Duenas Patient discharged. Emergency Attender: LITZY Sage 10/28/2019 08:51 :00 PM [facility] Vane: STAFF ED STAFF EDT - 10/29/2019 [facility] PHYSICIANAdmitter: LITZY 03:06:00 AM EDT JELANI Horowitz Patient discharged. Emergency Attender: LITZY Sage 10/27/2019 06:36 :00 PM [facility] CAtthierno: STAFF ED STAFF EDT - 10/27/2019 [facility] PHYSICIANAdmitter: LITZY 10:23:00 PM EDT JELANI Horowitz Patient discharged. Emergency Attender: ARIC Sage 10/22/2019 06:02:00 PM [facility] Karen: PAULINO NEGRETE EDT - 10/22/2019 [facility] KAttenthaddeus: STAFF ED STAFF 10:48:00 PM EDT PHYSICIANAdmitter: ARIC Reeveser: STAFF ED STAFF PHYSICIAN Patient discharged. Emergency Attender: ED STAFF H 10/22/2019 01:07:00 AM [facility] PHYSICIANAttender: STAFF ED EDT - 10/22/2019 [facility] STAFF PHYSICIANAdmitter: ED 06:20:00 AM EDT STAFF PHYSICIAN Patient discharged. Emergency Attender: JOSE ED STAFF H 10/21/2019 03:39:00 PM [facility] PHYSICIANAttender: STAFF ED EDT - 10/22/2019 [facility] STAFF PHYSICIANAdmitter: 12:14:00 AM EDT [place] ED STAFF PHYSICIAN Patient discharged. Emergency Attender: STAFF ED STAFF H 10/21/2019 12:18:00 AM [facility] PHYSICIAN EDT - 10/21/2019 07:03:00 Center AM EDT Patient discharged. Emergency Attender: ED STAFF H 10/19/2019 08:03:00 PM [facility] PHYSICIANAttender: STAFF ED EDT - 10/20/2019 [facility] STAFF PHYSICIANAdmitter: ED 06:09:00 AM EDT STAFF PHYSICIAN Patient discharged. Emergency Attender: ED STAFF H 10/18/2019 06:11:00 AM [facility] PHYSICIANAttender: STAFF ED EDT - 10/18/2019 [facility] STAFF PHYSICIANAdmitter: ED 09:49:00 PM EDT STAFF PHYSICIAN Patient discharged. Emergency Attender: ED STAFF 10/17/2019 08:24:00 PM [facility] PHYSICIANAttender: ARIC EDT - 10/17/2019 [facility] ADITHYA Jones: STAFF ED 11:42:00 PM EDT STAFF PHYSICIANAdmitter: ED STAFF PHYSICIAN Patient discharged. Emergency Attender: JOSE ED STAFF 10/15/2019 01:27:00 PM [facility] PHYSICIANAttender: STAFF ED EDT - 10/15/2019 [facility] STAFF PHYSICIANAdmitter: 03:49:00 PM EDT [place] ED STAFF PHYSICIAN Patient discharged. Emergency Attender: LITZY Sage 10/13/2019 07:22 :00 PM [facility] CAttender: STAFF ED STAFF EDT - 10/13/2019 [facility] PHYSICIANAdmitter: LITZY 10:35:00 PM EDT JELANI Horowitz Patient discharged. Emergency Attender: JOSE ED STAFF H 10/13/2019 07:53:00 AM [facility] PHYSICIANAttender: STAFF ED EDT - 10/13/2019 [facility] STAFF PHYSICIANAdmitter: 06:44:00 PM EDT [place] ED STAFF PHYSICIAN Patient discharged. Emergency Attender: STAFF ED STAFF H 10/12/2019 12:49:00 AM [facility] PHYSICIAN EDT - 10/12/2019 02:10:00 [place] AM EDT Patient discharged. Emergency Attender: LITZY MCGHEE 10/11/2019 02:37 :00 PM [facility] CAttender: STAFF ED STAFF EDT - 10/11/2019 [facility] PHYSICIANAdmitter: LITZY 08:39:00 PM EDT JELANI Horowitz Patient discharged. Outpatient Attender: [id number] [facility] 10/10/2019 07:26:38 AM [facility] ([facility] EDT [facility]) Patient admitted. Outpatient Attender: MHAW9 [facility] 10/10/2019 07:26:35 AM [facility] ([facility] EDT [facility]) Patient admitted. Emergency Attender: JOSE ED STAFF 10/06/2019 09:24:00 AM [facility] PHYSICIANAttender: STAFF ED EDT - 10/06/2019 [facility] STAFF PHYSICIANAdmitter: 11:20:00 AM EDT [place] ED STAFF PHYSICIAN Patient discharged. Emergency Attender: STAFF ED STAFF 10/05/2019 08:44:00 PM [facility] PHYSICIAN EDT - 10/06/2019 12:39:00 [place] AM EDT Patient discharged. Inpatient Attender: TUYET PEREIRA H-ED 09/17/2019 11:20:00 [facility] TRISTANAttender: STAFF ED PM EDT - 09/19/2019 [facility] STAFF PHYSICIANAdmitter: 07:49:00 AM EDT TUYET LUTZTANReferrer: TUYET BENZ Patient discharged. Emergency Attender: Josue Sage 09/17/2019 05:08: 00 PM [facility] MDAttender: STAFF ED STAFF EDT - 09/18/2019 [facility] PHYSICIANAdmitter: Josue 04:33:00 AM EDT [facility] KAPLANeferrer: STAFF ED STAFF PHYSICIAN Patient discharged. Emergency Attender: STAFF ED STAFF H 09/14/2019 08:44:00 PM [facility] PHYSICIAN EDT - 09/15/2019 09:09:00 Center AM EDT Patient discharged. Emergency Attender: LITZY Sage 09/13/2019 07:30 :00 PM [facility] Isidrokatethaddeus: STAFF ED STAFF EDT - 09/14/2019 [facility] PHYSICIANAdmitter: LITZY 08:43:00 AM EDT JELANI Horowitz Patient discharged. Emergency Attender: JOSE ED STAFF H 09/13/2019 08:56:00 AM [facility] PHYSICIANAttender: STAFF ED EDT - 09/13/2019 [facility] STAFF PHYSICIANAdmitter: 01:13:00 PM EDT JOSE ED STAFF PHYSICIAN Patient discharged. Emergency Attender: STAFF ED STAFF 09/12/2019 08:31:00 PM [facility] PHYSICIAN EDT - 09/13/2019 07:32:00 Center AM EDT Patient discharged. Emergency Attender: ARIC Sage 09/11/2019 08:42:00 PM [facility] Karen: STAFF ED STAFF EDT - 09/12/2019 [facility] PHYSICIANAdmitter: ARIC 06:36:00 PM EDT ADITHYA Tyler: STAFF ED STAFF PHYSICIAN Patient discharged. Emergency Attender: LITZY Sage 09/11/2019 04:08 :00 PM [facility] Vane: STAFF ED STAFF EDT - 09/11/2019 [facility] PHYSICIANAdmitter: LITZY 06:54:00 PM EDT JELANI Horowitz Patient discharged. Emergency Attender: ARIC Sage 09/10/2019 04:50:00 PM [facility] Karen: STAFF ED STAFF EDT - 09/11/2019 [facility] PHYSICIANAdmitter: ARIC 08:33:00 PM EDT ADITHYA Tyler: STAFF ED STAFF PHYSICIAN Patient discharged. Emergency Attender: ARIC Sage 09/08/2019 08:13:00 PM [facility] Karen: STAFF ED STAFF EDT - 09/09/2019 [facility] PHYSICIANAdmitter: ARIC 08:40:00 AM EDT ADITHYA W Patient discharged. Emergency Attender: STAFF ED STAFF H 09/07/2019 10:06:00 PM [facility] PHYSICIAN EDT - 09/08/2019 08:44:00 Center AM EDT Patient discharged. Emergency Attender: JOSE ED STAFF H 09/05/2019 07:50:00 AM [facility] PHYSICIANAttender: ED STAFF EDT - 09/07/2019 [facility] PHYSICIANAttender: STAFF ED 06:44:00 AM EDT STAFF PHYSICIANAdmitter: JOSE ED STAFF PHYSICIAN Patient discharged. Emergency Attender: STAFF ED STAFF 09/04/2019 10:01:00 PM [facility] PHYSICIANReferrer: STAFF ED EDT - 09/05/2019 [facility] STAFF PHYSICIAN 08:15:00 AM EDT Patient discharged. Emergency Attender: LITZY Sage 09/04/2019 02:54 :00 PM [facility] CAttenthaddeus: STAFF ED STAFF EDT - 09/04/2019 [facility] PHYSICIANAdmitter: LITZY 08:59:00 PM EDT JELANI MCGHEE CReferrer: STAFF ED STAFF PHYSICIAN Patient discharged. Emergency Attender: STAFF ED STAFF 09/03/2019 08:39:00 PM [facility] PHYSICIANReferrer: STAFF ED EDT - 09/04/2019 [facility] STAFF PHYSICIAN 06:55:00 AM EDT Patient discharged. Emergency Attender: LITZY Sage 09/02/2019 04:49 :00 PM [facility] CAttenthaddeus: ARIC HAJI EDT - 09/03/2019 [facility] WAttenthaddeus: STAFF ED STAFF 12:12:00 AM EDT PHYSICIANAdmitter: LITZY Horowitz Patient discharged. Outpatient Attender: [email or web address] [facility] 09/02/2019 07:16:17 AM I ([facility] EDT Collaborative) Patient admitted. Emergency Attender: ARIC Sage 09/01/2019 10:38:00 PM [facility] Karen: STAFF ED STAFF EDT - 09/01/2019 [facility] PHYSICIANAdmitter: ARIC 11:35:00 PM EDT ADITHYA Duenas Patient discharged. Emergency Attender: JOSE ED STAFF 09/01/2019 12:48:00 PM [facility] PHYSICIANAttender: LITZY EDT - 09/01/2019 [facility] JELANI MCGHEE CAttender: 09:37:00 PM EDT STAFF ED STAFF PHYSICIANAdmitter: JOSE ED STAFF PHYSICIAN Patient discharged. Emergency Attender: ARIC Sage 08/31/2019 07:31:00 PM [facility] Michellekatethaddeus: STAFF ED STAFF EDT - 09/01/2019 [facility] PHYSICIANAdmitter: GRAVES 04:06:00 AM EDT ADITHYA W Patient discharged. Emergency Attender: ED STAFF 08/29/2019 08:10:00 PM [facility] PHYSICIANAttender: STAFF ED EDT - 08/30/2019 [facility] STAFF PHYSICIANAdmitter: ED 08:39:00 AM EDT STAFF PHYSICIAN Patient discharged. Emergency Attender: ED STAFF 08/28/2019 08:21:00 PM [facility] PHYSICIANAttender: STAFF ED EDT - 08/29/2019 [facility] STAFF PHYSICIANAdmitter: ED 08:53:00 AM EDT STAFF PHYSICIANReferrer: STAFF ED STAFF PHYSICIAN Patient discharged. Emergency Attender: ARIC HAJI 08/27/2019 08:45:00 PM [facility] Karen: STAFF ED STAFF EDT - 08/28/2019 [facility] PHYSICIANAdmitter: ARIC 01:42:00 AM EDT ADITHYA LERMAeferrer: STAFF ED STAFF PHYSICIAN Patient discharged. Emergency Attender: ED STAFF 08/27/2019 05:26:00 AM [facility] PHYSICIANAttender: ED STAFF EDT - 08/27/2019 [facility] PHYSICIANAttender: STAFF ED 04:41:00 PM EDT STAFF PHYSICIANAdmitter: ED STAFF PHYSICIAN Patient discharged. Emergency Attender: FRANCISCA ED STAFF 08/25/2019 04:54:00 PM [facility] PHYSICIANAttender: LITZY EDT - 08/25/2019 [facility] JELANI Felixtenthaddeus: 07:49:00 PM EDT STAFF ED STAFF PHYSICIANAdmitter: FRANCISCA ED STAFF PHYSICIAN Patient discharged. Emergency Attender: FRANCISCA ED STAFF 08/24/2019 06:38:00 PM [facility] PHYSICIANAttender: STAFF ED EDT - 08/25/2019 [facility] STAFF PHYSICIANAdmitter: 05:59:00 AM EDT FRANCISCA ED STAFF PHYSICIAN Patient discharged. Emergency Attender: FRANCISCA ED STAFF 08/23/2019 06:12:00 PM [facility] PHYSICIANAttender: STAFF ED EDT - 08/24/2019 [facility] STAFF PHYSICIAN 04:50:00 AM EDT Patient discharged. Emergency Attender: STAFF ED STAFF H 08/22/2019 08:59:00 PM [facility] PHYSICIAN EDT - 08/23/2019 08:48:00 Center AM EDT Patient discharged. Emergency Attender: STAFF ED STAFF H 08/21/2019 09:12:00 PM [facility] PHYSICIANReferrer: STAFF ED EDT - 08/22/2019 [facility] STAFF PHYSICIAN 06:01:00 AM EDT Patient discharged. Emergency Attender: ED STAFF H 08/20/2019 03:19:00 PM [facility] PHYSICIANAttender: STAFF ED EST - 08/20/2019 [facility] STAFF PHYSICIANAdmitter: ED 11:42:00 PM EST STAFF PHYSICIAN Patient discharged. Emergency Attender: ARIC HAJI H 08/19/2019 07:15:00 PM [facility] WAttender: STAFF ED STAFF EST - 08/20/2019 [facility] PHYSICIANAdmitter: GRAVES 03:04:00 AM EST ADITHYA W Patient discharged. Emergency Attender: ED STAFF 08/19/2019 03:56:00 PM [facility] PHYSICIANAttender: STAFF ED EST - 08/19/2019 [facility] STAFF PHYSICIANAdmitter: ED 06:55:00 PM EST STAFF PHYSICIAN Patient discharged. Emergency Attender: LITZY Sage 08/18/2019 03:54 :00 PM [facility] STAFF ED STAFF EST - 08/18/2019 [facility] PHYSICIANAdmitter: LITZY 10:23:00 PM EST JELANI Horowitz Patient discharged. Emergency Attender: ED STAFF 08/17/2019 02:27:00 PM [facility] PHYSICIANAttender: STAFF ED EST - 08/18/2019 [facility] STAFF PHYSICIANAdmitter: ED 08:39:00 AM EST STAFF PHYSICIAN Patient discharged. Emergency Attender: STAFF ED STAFF H 08/17/2019 02:43:00 AM [facility] Medical PHYSICIAN EST - 08/17/2019 09:44:00 Center AM EST Patient discharged. Emergency Attender: EVA 08/16/2019 03:33:00 JORGE [facility] RICHARDAttender: EMERGENCY [facility] SERVICE, XAdmitter: EVA [facility] Emergency Attender: LITZY Sage 08/12/2019 05:29 :00 PM [facility] CAttender: FRANCISCA ED STAFF EST - 08/13/2019 [facility] PHYSICIANAttender: STAFF ED 05:43:00 AM EST STAFF PHYSICIANAdmitter: LTIZY Horowitz Patient discharged. Emergency Attender: LITZY MCGHEE 08/11/2019 05:01 :00 PM [facility]: STAFF ED STAFF EST - 08/12/2019 [facility] PHYSICIANAdmitter: LITZY 12:41:00 AM EST NAVIDMITALI LITZY Carlos Manuel Patient discharged. Emergency Attender: ARIC Sage 08/10/2019 10:37:00 PM [facility]: STAFF ED STAFF EST - 08/11/2019 [facility] PHYSICIANAdmitter: ARIC 01:01:00 AM EST ADITHYA W Patient discharged. Emergency Attender: AGUILAR ED STAFF 08/10/2019 04:09:00 PM [facility] PHYSICIANAttender: STAFF ED [facility] - 08/10/2019 [facility] STAFF PHYSICIANAdmitter: AGUILAR 11:02:00 PM EST ED STAFF PHYSICIAN Patient discharged. Emergency Attender: ARIC Sage 08/09/2019 07:25:00 PM [facility]: STAFF ED STAFF [facility] - 08/10/2019 [facility] PHYSICIANAdmitter: ARIC 09:58:00 AM EST ADITHYA W Patient discharged. Emergency Attender: LEONEL ED STAFF 08/08/2019 04:28:00 PM [facility] PHYSICIANAttender: STAFF ED [facility] - 08/09/2019 [facility] STAFF PHYSICIANAdmitter: LEONEL 10:32:00 AM EST ED STAFF PHYSICIAN Patient discharged. Emergency Attender: ARIC Sage 08/06/2019 03:52:00 PM [facility]: ED STAFF [facility] - 08/07/2019 [facility] PHYSICIANAttender: STAFF ED 12:38:00 AM EST STAFF PHYSICIANAdmitter: ARIC Duenas Patient discharged. Emergency Attender: LEONEL ED STAFF 08/01/2019 06:41:00 PM [facility] PHYSICIANAttender: STAFF ED [facility] - 08/02/2019 [facility] STAFF PHYSICIANAdmitter: LEONEL 08:35:00 AM EST ED STAFF PHYSICIAN Patient discharged. Emergency Attender: STAFF ED STAFF 07/31/2019 11:25:00 PM [facility] PHYSICIAN EST - 08/01/2019 08:56:00 Center AM EST Patient discharged. Emergency Attender: LITZY MCGHEE 07/31/2019 05:39 :00 PM [facility]: STAFF ED STAFF EST - 07/31/2019 [facility] PHYSICIANAdmitter: LITZY 07:38:00 PM EST JELANI MCGHEE CReferrer: STAFF ED STAFF PHYSICIAN Patient discharged. Emergency Attender: STAFF ED STAFF 07/30/2019 07:01:00 PM [facility] PHYSICIANReferrer: STAFF ED [facility] - 07/31/2019 [facility] STAFF PHYSICIAN 04:29:00 PM EST Patient discharged. Emergency Attender: STAFF ED STAFF 07/29/2019 09:45:00 PM [facility] PHYSICIAN EST - 07/30/2019 07:10:00 Center AM EST Patient discharged. Emergency Attender: LITZY MCGHEE 07/28/2019 02:39 :00 PM [facility] CAttenthaddeus: ARIC HAJI [facility] 07/29/2019 [facility] WAttender: STAFF ED STAFF 01:25:00 AM EST PHYSICIANAdmitter: LITZY Horowitz Patient discharged. Emergency Attender: JOSE ED STAFF 07/28/2019 03:16:00 AM [facility] PHYSICIANAttender: STAFF ED [facility] 07/28/2019 [facility] STAFF PHYSICIANAdmitter: 10:10:00 AM EST [place] ED STAFF PHYSICIAN Patient discharged. Emergency Attender: ED STAFF 07/27/2019 03:24:00 PM [facility] PHYSICIANAttender: STAFF ED [facility] 07/27/2019 [facility] STAFF PHYSICIANAdmitter: ED 10:57:00 PM EST STAFF PHYSICIAN Patient discharged. Emergency Attender: JOSE ED STAFF 07/26/2019 02:36:00 PM [facility] PHYSICIANAttender: STAFF ED [facility] 07/26/2019 [facility] STAFF PHYSICIANAdmitter: 06:36:00 PM EST [place] ED STAFF PHYSICIAN Patient discharged. Emergency Attender: ARIC HAJI 07/22/2019 12:21:00 AM [facility] Karen: STAFF ED STAFF [facility] - 07/22/2019 [facility] PHYSICIANAdmitter: ARIC 01:50:00 AM EST ADITHYA Duneas Patient discharged. Emergency Attender: FRANCISCA ED STAFF 07/17/2019 07:28:00 PM [facility] PHYSICIANAttender: STAFF ED [facility] - 07/17/2019 [facility] STAFF PHYSICIANAdmitter: 10:56:00 PM EST [facility] ST[facility]FF PHYSICIANReferrer: STAFF ED STAFF PHYSICIAN Patient discharged. Emergency Attender: FRANCISCA ED STAFF H 07/16/2019 03:07:00 PM [facility] PHYSICIANAttender: STAFF ED EST - 07/17/2019 [facility] STAFF PHYSICIANAdmitter: 03:19:00 AM EST [facility] ED STAFF PHYSICIAN Patient discharged. Emergency Attender: ARIC HAJI H-ER 07/15/2019 01:02:00 [facility]AFF ED STAFF AM EST - 07/15/2019 [facility] PHYSICIANAdmitter: ARIC 03:10:00 AM EST ADITHYA W Patient discharged. Emergency Attender: JOSE ED STAFF 07/14/2019 07:29:00 AM [facility] PHYSICIANAttender: STAFF ED EST - 07/14/2019 [facility] STAFF PHYSICIANAdmitter: 12:19:00 PM EST [place] ED STAFF PHYSICIAN Patient discharged. Emergency Attender: ARIC HAJI 07/13/2019 05:30:00 PM [facility] STAFF ED STAFF [facility] - 07/14/2019 [facility] PHYSICIANAdmitter: ARIC 05:30:00 AM EST ADITHYA W Patient discharged. Emergency Attender: STAFF ED STAFF 07/13/2019 03:03:00 AM [facility] PHYSICIAN EST - 07/13/2019 10:05:00 [place] AM EST Patient discharged. Emergency Attender: STAFF ED STAFF 07/12/2019 09:37:00 PM [facility] PHYSICIAN EST - 07/13/2019 12:34:00 Center AM EST Patient discharged. Emergency Attender: JOSE ED STAFF 07/12/2019 01:34:00 PM [facility] PHYSICIANAttender: STAFF ED EST - 07/12/2019 [facility] STAFF PHYSICIANAdmitter: 11:37:00 PM EST [place] ED STAFF PHYSICIAN Patient discharged. Emergency Attender: STAFF ED STAFF 07/09/2019 10:13:00 PM [facility] PHYSICIANReferrer: STAFF ED EST - 07/09/2019 [facility] STAFF PHYSICIAN 11:20:00 PM EST Patient discharged. Emergency Attender: ARIC HAJI 07/09/2019 11:25:00 AM [facility] WAttender: STAFF ED STAFF [facility] - 07/09/2019 [facility] PHYSICIANAdmitter: ARIC 03:37:00 PM EST ADITHYA W Patient discharged. Emergency Attender: STAFF ED STAFF 07/08/2019 08:14:00 PM [facility] PHYSICIAN EST - 07/09/2019 07:23:00 [place] AM EST Patient discharged. Emergency Attender: LITZY MCGHEE 07/07/2019 07:49 :00 PM [facility] CAttender: STAFF ED STAFF [facility] 07/07/2019 [facility] PHYSICIANAdmitter: LITZY 09:07:00 PM EST NAVIDMITALI LITZY Horowitz Patient discharged. Emergency Attender: JOSE ED STAFF 07/07/2019 12:23:00 PM [facility] PHYSICIANAttender: STAFF ED [facility] - 07/07/2019 [facility] STAFF PHYSICIANAdmitter: 04:56:00 PM EST [place] ED STAFF PHYSICIAN Patient discharged. Emergency Attender: Josue Sage 07/06/2019 06:30: 00 PM [facility] MDAttender: STAFF ED STAFF [facility] 07/07/2019 [facility] PHYSICIANAdmitter: Josue 02:40:00 AM EST Tanja MD Patient discharged. Emergency Attender: STAFF ED STAFF 07/05/2019 10:18:00 PM [facility] PHYSICIAN [facility] - 07/06/2019 07:08:00 [place] AM EST Patient discharged. Emergency Attender: ED STAFF 07/04/2019 05:56:00 PM [facility] PHYSICIANAttender: ED STAFF [facility] 07/05/2019 [facility] PHYSICIANAttender: STAFF ED 09:10:00 AM EST STAFF PHYSICIANAdmitter: ED STAFF PHYSICIANReferrer: STAFF ED STAFF PHYSICIAN Patient discharged. Emergency Attender: STAFF ED STAFF 07/03/2019 10:40:00 PM [facility] PHYSICIANReferrer: STAFF ED [facility] 07/04/2019 [facility] STAFF PHYSICIAN 06:45:00 AM EST Patient discharged. Emergency Attender: ED STAFF 07/02/2019 06:17:00 PM [facility] PHYSICIANAttender: STAFF ED [facility] - 07/02/2019 [facility] STAFF PHYSICIANAdmitter: ED 08:42:00 PM EST STAFF PHYSICIANReferrer: STAFF ED STAFF PHYSICIAN Patient discharged. Emergency Attender: ARIC Sage 07/01/2019 11:08:00 PM [facility] WAttenthaddeus: STAFF ED STAFF [facility] - 07/02/2019 [facility] PHYSICIANAdmitter: ARIC 04:14:00 AM EST ADITHYA Duenas Patient discharged. Emergency Attender: ARIC Sage 07/01/2019 07:08:00 PM [facility] Karen: STAFF ED STAFF [facility] - 07/01/2019 [facility] PHYSICIANAdmitter: ARIC 09:50:00 PM EST ADITHYA W Patient discharged. Emergency Attender: STAFF ED STAFF 06/29/2019 09:17:00 PM [facility] Medical PHYSICIAN [facility] - 06/30/2019 04:12:00 [facility] AM EST Patient discharged. Emergency Attender: STAFF ED STAFF 06/29/2019 03:02:00 AM [facility] PHYSICIAN [facility] - 06/29/2019 09:25:00 [facility] AM EST Patient discharged. Emergency Attender: STAFF ED STAFF 06/28/2019 09:08:00 PM [facility] PHYSICIAN [facility] - 06/28/2019 11:20:00 [place] PM EST Patient discharged. Emergency Attender: LITZY MCGHEE 06/28/2019 12:59 :00 PM [facility]: STAFF ED STAFF [facility] 06/28/2019 [facility] PHYSICIANAdmitter: LITZY 06:29:00 PM EST JELANI Horowitz Patient discharged. Emergency Attender: ARIC Sage 06/27/2019 11:57:00 PM [facility] ST[facility]FF ED STAFF [facility] 06/28/2019 [facility] PHYSICIANAdmitter: ARIC 02:12:00 AM EST ADITHYA W Patient discharged. Emergency Attender: JOSE ED STAFF 06/27/2019 12:51:00 PM [facility] PHYSICIANAttender: STAFF ED [facility] 06/27/2019 [facility] STAFF PHYSICIANAdmitter: 09:36:00 PM EST JOSE ED STAFF PHYSICIAN Patient discharged. Emergency Attender: ARIC Sage 06/27/2019 03:59:00 AM [facility] Agustínthaddeus: STAFF ED STAFF [facility] - 06/27/2019 [facility] PHYSICIANAdmitter: ARIC 06:26:00 AM EST ADITHYA W Patient discharged. Emergency Attender: STAFF ED STAFF 06/24/2019 10:59:00 PM [facility] PHYSICIAN [facility] - 06/25/2019 07:44:00 [facility] AM EST Patient discharged. Emergency Attender: PAULINO Sage 06/24/2019 01:51:00 PM [facility] Deborah: STAFF ED STAFF [facility] 06/24/2019 [facility] PHYSICIANAdmitter: PAULINO 10:37:00 PM EST PENELOPE Ellis Patient discharged. Emergency Attender: LITZY Sgae 06/23/2019 04:58 :00 PM [facility] STAFF ED STAFF EST - 06/24/2019 [facility] PHYSICIANAdmitter: LITZY 02:50:00 AM EST JACIELYOSEPH LITZY Carlos Manuel Patient discharged. Emergency Attender: LITZY Sage 06/16/2019 06:18 :00 PM [facility] STAFF ED STAFF EST - 06/16/2019 [facility] PHYSICIANAdmitter: LITZY 09:48:00 PM EST JELANI LITZY Carlos Manuel Patient discharged. Emergency Attender: STAFF ED STAFF H 06/16/2019 05:45:00 AM [facility] Medical PHYSICIAN EST - 06/16/2019 05:52:00 Center AM EST Patient discharged. Emergency Attender: JOSE ED STAFF 06/16/2019 02:25:00 AM [facility] PHYSICIANAttender: STAFF ED EST - 06/16/2019 [facility] STAFF PHYSICIAN 09:02:00 AM EST Patient discharged. Emergency Attender: ED STAFF 06/15/2019 01:01:00 PM [facility] PHYSICIANAttender: STAFF ED EST - 06/15/2019 [facility] STAFF PHYSICIANAdmitter: ED 07:10:00 PM EST STAFF PHYSICIAN Patient discharged. Emergency Attender: LITZY Sage 06/14/2019 08:05 :00 PM [facility]: ARIC HAJI [facility] - 06/15/2019 [facility]: STAFF ED STAFF 06:52:00 AM EST PHYSICIANAdmitter: LITZY Horowitz Patient discharged. Emergency Attender: ARIC Sage 06/13/2019 06:15:00 PM [facility] FRANCISCA ED STAFF EST - 06/14/2019 [facility] PHYSICIANAttender: STAFF ED 05:26:00 AM EST STAFF PHYSICIANAdmitter: ARIC Duenas Patient discharged. Emergency Attender: FRANCISCA ED STAFF 06/12/2019 08:47:00 PM [facility] PHYSICIANAttender: STAFF ED EST - 06/12/2019 [facility] STAFF PHYSICIANAdmitter: 09:46:00 PM EST [facility] PHYSICIANReferrer: STAFF ED STAFF PHYSICIAN Patient discharged. Emergency Attender: FRANCISCA ED STAFF H 06/12/2019 05:09:00 PM [facility] PHYSICIANAttender: LITZY EST - 06/12/2019 [facility] Felixtender: 06:37:00 PM EST STAFF ED STAFF PHYSICIANAdmitter: FRANCISCA ED STAFF PHYSICIANReferrer: STAFF ED STAFF PHYSICIAN Patient discharged. Emergency Attender: ARIC Sage 06/10/2019 05:55:00 PM [facility]: STAFF ED STAFF [facility] - 06/10/2019 10:3 4:00 Center PHYSICIAN PM EST Patient discharged. Emergency Attender: LITZY Sage 06/09/2019 08:54 :00 PM [facility]: ARIC HAJI [facility] - 06/09/2019 [facility]: STAFF ED STAFF 10:57:00 PM EST PHYSICIANAdmitter: LITZY Horowitz Patient discharged. Emergency Attender: LITZY Sage 06/09/2019 06:18 :00 PM [facility]: STAFF ED STAFF [facility] - 06/09/2019 [facility] PHYSICIANAdmitter: LITZY 07:46:00 PM EST JELANI Horowitz Patient discharged. Emergency Attender: LITZY Sage 06/09/2019 02:23 :00 PM [facility] STAFF ED STAFF [facility] - 06/09/2019 [facility] PHYSICIANAdmitter: LITZY 06:43:00 PM EST NAVIDMITALI LITZY Horowitz Patient discharged. Emergency Attender: ARIC Sage 06/08/2019 08:07:00 PM [facility]: LITZY PALOMARES [facility] - 06/09/2019 [facility] LITZY Cifuentes: STAFF ED 08:46:00 AM EST STAFF PHYSICIANAdmitter: ARIC LERMAefkendraer: STAFF ED STAFF PHYSICIAN Patient discharged. Emergency Attender: LITZY Sage 06/07/2019 04:26 :00 PM [facility]: STAFF ED STAFF [facility] - 06/07/2019 [facility] PHYSICIANAdmitter: LITZY 08:39:00 PM EST NAVIDMITALI LITZY Horowitz Patient discharged. Emergency Attender: LEONEL YOUNG STAFF H 06/06/2019 06:19:00 PM [facility] PHYSICIANAttender: STAFF ED EST - 06/06/2019 [facility] STAFF PHYSICIANAdmitter: LEONEL 11:22:00 PM EST ED STAFF PHYSICIAN Patient discharged. Emergency Attender: JOSE ED STAFF H 06/06/2019 11:50:00 AM [facility] PHYSICIANAttender: STAFF ED EST - 06/06/2019 [facility] STAFF PHYSICIANAdmitter: 06:05:00 PM EST JOSE ED STAFF PHYSICIAN Patient discharged. Emergency Attender: STAFF ED STAFF H 06/05/2019 05:53:00 PM [facility] PHYSICIANReferrer: STAFF ED EST - 06/06/2019 [facility] STAFF PHYSICIAN 11:24:00 AM EST Patient discharged. Emergency Attender: ED STAFF H 06/03/2019 02:42:00 PM [facility] PHYSICIANAttender: STAFF ED EST - 06/03/2019 [facility] STAFF PHYSICIANAdmitter: ED 07:12:00 PM EST STAFF PHYSICIAN Patient discharged. Emergency Attender: STAFF ED STAFF H 06/02/2019 03:47:00 PM [facility] Medical PHYSICIAN EST - 06/03/2019 06:24:00 Center AM EST Patient discharged. Emergency Attender: STAFF ED STAFF H-ER 06/01/2019 07:03:00 [facility] PHYSICIANAdmitter: STAFF ED PM EST - 06/02/2019 [facility] STAFF PHYSICIAN 09:42:00 AM EST Patient discharged. Emergency Attender: LEONEL ED STAFF H 06/01/2019 01:42:00 PM [facility] PHYSICIANAttender: STAFF ED EST - 06/01/2019 [facility] STAFF PHYSICIANAdmitter: LEONEL 01:45:00 PM EST ED STAFF PHYSICIAN Patient discharged. Emergency Attender: AGUILAR ED STAFF H 06/01/2019 01:37:00 PM [facility] PHYSICIANAttender: LEONEL ED EST - 06/01/2019 [facility] STAFF PHYSICIANAttender: STAFF 04:28:00 PM EST ED STAFF PHYSICIANAdmitter: AGUILAR ED STAFF PHYSICIAN Patient discharged. Emergency Attender: PAULINO Sage 05/31/2019 02:29:00 PM [facility] Deborah: STAFF ED STAFF EST - 05/31/2019 [facility] PHYSICIANAdmitter: PAULINO 08:32:00 PM EST PENELOPE Ellis Patient discharged. Emergency Attender: ARIC Sage 05/29/2019 02:39:00 PM [facility] Karen: STAFF ED STAFF EST - 05/30/2019 [facility] PHYSICIANAdmitter: ARIC 07:02:00 AM EST ADITHYA Duenas Patient discharged. Emergency Attender: ARIC Sage 05/28/2019 09:23:00 PM [facility] WAtthierno: STAFF ED STAFF EST - 05/29/2019 [facility] Center PHYSICIANAdmitter: ARIC 07:28:00 AM EST ADITHYA Stinsonerrer: STAFF ED STAFF PHYSICIAN Patient discharged. Emergency Attender: LEONEL ED STAFF H 05/28/2019 01:26:00 PM [facility] PHYSICIANAttender: STAFF ED EST - 05/29/2019 [facility] STAFF PHYSICIANAdmitter: LEONEL 01:06:00 AM EST ED STAFF PHYSICIAN Patient discharged. Emergency Attender: LEONEL ED STAFF H 05/24/2019 06:37:00 PM [facility] PHYSICIANAttender: STAFF ED EST - 05/25/2019 [facility] STAFF PHYSICIAN 10:33:00 AM EST Patient discharged. Emergency Attender: JOSE ED STAFF H 05/24/2019 12:04:00 PM [facility] PHYSICIANAttender: STAFF ED EST - 05/24/2019 [facility] STAFF PHYSICIANAdmitter: 09:12:00 PM EST JOSE ED STAFF PHYSICIAN Patient discharged. Emergency Attender: FRANCISCA ED STAFF H 05/22/2019 10:10:00 PM [facility] PHYSICIANAttender: STAFF ED EST - 05/23/2019 [facility] STAFF PHYSICIANAdmitter: 09:05:00 AM EST [facility] STAFF PHYSICIAN Patient discharged. Emergency Attender: LITZY Sage 05/22/2019 02:13 :00 PM [facility] FRANCISCA ED STAFF EST - 05/23/2019 [facility] PHYSICIANAttender: STAFF ED 12:13:00 AM EST STAFF PHYSICIANAdmitter: LITZY Horowitz Patient discharged. Emergency Attender: FRANCISCA ED STAFF H 05/21/2019 02:44:00 PM [facility] PHYSICIANAttender: LEONEL ED EST - 05/22/2019 [facility] STAFF PHYSICIANAttender: STAFF 12:01:00 AM EST ED STAFF PHYSICIANAdmitter: FRANCISCA ED STAFF PHYSICIAN Patient discharged. Emergency Attender: ARIC Sage 05/20/2019 06:51:00 PM [facility] WAtthierno: STAFF ED STAFF EST - 05/21/2019 [facility] PHYSICIANAdmitter: ARIC 11:22:00 AM EST ADIHTYA W Patient discharged. Emergency Attender: ARIC Sage 05/19/2019 09:29:00 PM [facility] Michellekatethaddeus: STAFF ED STAFF EST - 05/20/2019 [facility] PHYSICIANAdmitter: ARIC 06:30:00 AM EST ADITHYA W Patient discharged. Emergency Attender: AGUILAR ED STAFF H 05/18/2019 01:40:00 PM [facility] PHYSICIANAttender: STAFF ED EST - 05/18/2019 [facility] STAFF PHYSICIANAdmitter: AGUILAR 10:18:00 PM EST ED STAFF PHYSICIAN Patient discharged. Emergency Attender: STAFF ED STAFF H 05/17/2019 11:12:00 PM [facility] Medical PHYSICIAN EST - 05/18/2019 08:10:00 Center AM EST Patient discharged. Emergency Attender: JOSE ED STAFF H 05/17/2019 12:42:00 PM [facility] PHYSICIANAttender: LITZY EST - 05/17/2019 [facility] FAHNMITALI CAVAZOSIAN CAttender: 10:01:00 PM EST STAFF ED STAFF PHYSICIANAdmitter: JOSE ED STAFF PHYSICIAN Patient discharged. Emergency Attender: STAFF ED STAFF H 05/16/2019 08:04:00 PM [facility] PHYSICIANReferrer: STAFF ED EST - 05/17/2019 [facility] STAFF PHYSICIAN 08:38:00 AM EST Patient discharged. Emergency Attender: ARIC HAJI 05/15/2019 04:42:00 PM [facility] Michellekatehtaddeus: STAFF ED STAFF EST - 05/16/2019 [facility] PHYSICIANAdmitter: ARIC 08:39:00 AM EST ADITHYA WReferrer: STAFF ED STAFF PHYSICIAN Patient discharged. Emergency Attender: FRANCISCA ED STAFF H 05/14/2019 11:53:00 PM [facility] PHYSICIANAttender: STAFF ED EST - 05/15/2019 [facility] STAFF PHYSICIANAdmitter: 06:49:00 AM [facility] Patient discharged. Emergency Attender: FRANCISCA ED STAFF H 05/14/2019 03:32:00 PM [facility] PHYSICIANAttender: STAFF ED EST - 05/14/2019 [facility] STAFF PHYSICIANAdmitter: 11:00:00 PM EST [facility] Patient discharged. Inpatient Attender: RACEHL CORNEJO H-HAL5 05/07/2019 08:12:00 [facility] RAÚLOAttender: STAFF ED STAFF AM EST - 05/14/20 [facility] PHYSICIANAdmitter: RACHEL 10:16:00 AM EST CLEMENTE AKINOReferrer: AKINO CLEMENTE AKINO Patient discharged. Emergency Attender: ARIC Sage 05/06/2019 05:37:00 PM [facility]: STAFF ED STAFF [facility] - 05/07/2019 [facility] PHYSICIANAdmitter: ARIC 04:16:00 AM EST ADITHYA W Patient discharged. Emergency Attender: JOSE ED STAFF H 05/05/2019 04:09:00 PM [facility] PHYSICIANAttender: ARIC [facility] - 05/06/2019 [facility] ADITHYA WAtthierno: STAFF ED 09:14:00 AM EST STAFF PHYSICIANAdmitter: JOSE ED STAFF PHYSICIAN Patient discharged. Emergency Attender: STAFF ED STAFF H 05/04/2019 08:43:00 PM [facility] PHYSICIAN [facility] - 05/05/2019 06:47:00 Center AM EST Patient discharged. Emergency Attender: STAFF ED STAFF 05/02/2019 03:18:00 PM [facility] PHYSICIAN [facility] - 05/02/2019 11:40:00 Center PM EST Patient discharged. Emergency Attender: LITZY MCGHEE 05/01/2019 02:04 :00 PM [facility]: STAFF ED STAFF [facility] - 05/01/2019 [facility] PHYSICIANAdmitter: LITZY 07:36:00 PM EST JELANI Horowitz Patient discharged. Emergency Attender: ED STAFF 04/30/2019 07:51:00 PM [facility] PHYSICIANAttender: STAFF ED [facility] - 05/01/2019 [facility] STAFF PHYSICIANAdmitter: ED 07:42:00 AM EST STAFF PHYSICIANReferrer: STAFF ED STAFF PHYSICIAN Patient discharged. Emergency Attender: STAFF ED STAFF 04/30/2019 02:40:00 PM [facility] PHYSICIAN [facility] - 04/30/2019 09:24:00 Center PM EST Patient discharged. Emergency Attender: ARIC Sage 04/29/2019 08:43:00 PM [facility]: STAFF ED STAFF [facility] - 04/30/2019 [facility] PHYSICIANAdmitter: ARIC 07:18:00 AM EST ADITHYA W Patient discharged. Emergency Attender: STAFF ED STAFF H 04/29/2019 02:53:00 AM [facility] PHYSICIAN EST - 04/29/2019 09:26:00 Center AM EST Patient discharged. Emergency Attender: JOSE ED STAFF H 04/28/2019 03:54:00 PM [facility] PHYSICIANAttender: STAFF ED EST - 04/28/2019 [facility] STAFF PHYSICIANAdmitter: 09:41:00 PM EST JOSE ED STAFF PHYSICIAN Patient discharged. Emergency Attender: Josue Escobedo 04/27/2019 03:35:00 PM [facility] Andrea MDAttender: STAFF ED EST - 04/28/2019 [facility] STAFF PHYSICIAN 05:12:00 PM EST Patient discharged. Emergency Attender: STAFF ED STAFF H 04/26/2019 12:56:00 PM [facility] PHYSICIAN EST - 04/27/2019 05:57:00 Center AM EST Patient discharged. Emergency Attender: ARIC Sage 04/24/2019 01:54:00 AM [facility] Karen: STAFF ED STAFF [facility] - 04/24/2019 [facility] PHYSICIANAdmitter: ARIC 09:19:00 AM EST ADITHYA W Patient discharged. Emergency Attender: LEONEL ED STAFF H 04/23/2019 01:05:00 PM [facility] PHYSICIANAttender: STAFF ED EST - 04/23/2019 [facility] STAFF PHYSICIANAdmitter: LEONEL 08:40:00 PM EST ED STAFF PHYSICIAN Patient discharged. Emergency Attender: LITZY Sage 04/22/2019 04:09 :00 PM [facility] CAttender: JOSE ED STAFF [facility] - 04/23/2019 [facility] PHYSICIANAttender: STAFF ED 08:02:00 AM EST STAFF PHYSICIANAdmitter: LITZY Horowitz Patient discharged. Emergency Attender: JOSE ED STAFF 04/21/2019 12:10:00 PM [facility] PHYSICIANAttender: ARIC EST - 04/22/2019 [facility] ADITHYA Jones: STAFF ED 06:50:00 AM EST STAFF PHYSICIANAdmitter: ARIC Duenas Patient discharged. Emergency Attender: AGUILAR ED STAFF H 04/20/2019 01:07:00 PM [facility] PHYSICIANAttender: FRANCISCA ED EST - 04/21/2019 [facility] STAFF PHYSICIANAttender: STAFF 05:19:00 AM EST ED STAFF PHYSICIANAdmitter: AGUILAR ED STAFF PHYSICIAN Patient discharged. Emergency Attender: STAFF ED STAFF H 04/19/2019 09:58:00 PM [facility] PHYSICIAN EST - 04/20/2019 08:24:00 Center AM EST Patient discharged. Emergency Attender: LITZY Sage 04/19/2019 05:01 :00 PM [facility] CAttender: STAFF ED STAFF EST - 04/19/2019 [facility] PHYSICIANAdmitter: LITZY 07:11:00 PM EST JELANI Horowitz Patient discharged. Emergency Attender: JOSE ED STAFF H 04/19/2019 01:30:00 PM [facility] PHYSICIANAttender: LITZY EST - 04/19/2019 [facility] JELANI MCGHEE CAttender: 07:00:00 PM EST STAFF ED STAFF PHYSICIANAdmitter: JOSE ED STAFF PHYSICIAN Patient discharged. Emergency Attender: LEONEL ED STAFF H 04/18/2019 02:10:00 PM [facility] PHYSICIANAttender: STAFF ED EST - 04/19/2019 [facility] STAFF PHYSICIAN 08:34:00 AM EST Patient discharged. Emergency Attender: STAFF ED STAFF H 04/17/2019 07:23:00 PM [facility] PHYSICIAN EST - 04/18/2019 08:39:00 Center AM EST Patient discharged. Emergency Attender: LITZY Sage 04/16/2019 05:51 :00 PM [facility] CAttender: ARIC HAJI EDT - 04/17/2019 [facility] WAttender: STAFF ED STAFF 03:56:00 AM EST PHYSICIANAdmitter: LITZY MCGHEE CReferrer: STAFF ED STAFF PHYSICIAN Patient discharged. Emergency H 04/11/2019 06:11:00 PM EDT - [address] [place] [address] 06:15:00 PM EDT Patient discharged. Emergency Admitter: ARIC HAJI [facility] 04/11/2019 06:10:00 PM [facility] EDT - 04/12/2019 06:22:00 Center AM EDT Patient discharged. Emergency Attender: ED STAFF H 04/10/2019 07:46:00 PM [facility] PHYSICIANAdmitter: ED STAFF EDT - 04/11/2019 [facility] PHYSICIAN 07:41:00 AM EDT Patient discharged. Emergency Admitter: ED STAFF H 04/09/2019 09:12:00 PM [facility] PHYSICIAN EDT - 04/10/2019 07:41:00 Center AM EDT Patient discharged. Emergency H 04/08/2019 05:24:00 PM EDT - [address] [place] [address] 07:14:00 AM EDT Patient discharged. Emergency H 04/07/2019 04:50:00 AM EDT - [address] [place] [address] 08:39:00 AM EDT Patient discharged. Emergency Attender: AGUILAR ED STAFF H 04/06/2019 12:36:00 PM [facility] PHYSICIANAdmitter: AGUILAR ED EDT - 04/06/2019 [facility] STAFF PHYSICIAN 06:56:00 PM EDT Patient discharged. Emergency H 04/06/2019 01:23:00 AM EDT - [address] [place] [address] 01:23:00 PM EDT Patient discharged. Emergency H-ER 04/05/2019 03:07:00 PM EDT - [facility] 04/05/2019 10:17:00 PM EDT Patient discharged. Emergency Admitter: LEONEL ED STAFF H 04/04/2019 04:47:00 PM [facility] PHYSICIAN EDT - 04/05/2019 08:41:00 Center AM EDT Patient discharged. Emergency H 04/03/2019 05:58:00 PM EDT - [address] [place] [address] 07:07:00 AM EDT Patient discharged. Emergency H 04/02/2019 08:14:00 PM EDT - [facility] [place] [address] 05:08:00 AM EDT Patient discharged. Emergency H 04/01/2019 07:44:00 PM EDT - [address] [place] [address] 07:05:00 AM EDT Patient discharged. Emergency H 03/31/2019 02:22:00 PM EDT - [address] [place] [address] 04:41:00 PM EDT Patient discharged. Emergency H 03/30/2019 04:51:00 PM EDT - [address] [place] [address] 08:20:00 AM EDT Patient discharged. Emergency H-ER 03/26/2019 06:15:00 PM EDT - [facility] 03/27/2019 07:01:00 AM EDT Patient discharged. Emergency H 03/25/2019 03:53:00 PM EDT - [address] [place] [address] 07:45:00 AM EDT Patient discharged. Emergency H 03/24/2019 07:50:00 PM EDT - [address] [place] [address] 06:06:00 AM EDT Patient discharged. Emergency H 03/24/2019 12:27:00 PM EDT - [address] [place] [address] 02:32:00 PM EDT Patient discharged. Emergency H 03/23/2019 01:31:00 PM EDT - [address] [place] [address] 06:43:00 AM EDT Patient discharged. Emergency H 03/22/2019 10:58:00 PM EDT - [address] [place] [address] 08:46:00 AM EDT Patient discharged. Emergency H 03/16/2019 09:22:00 PM EDT - [address] [place] [address] 08:35:00 AM EDT Patient discharged. Emergency H 03/11/2019 06:34:00 PM EDT - [address] [place] [address] 06:53:00 AM EDT Patient discharged. Emergency H 03/10/2019 06:16:00 PM EDT - [address] [place] [address] 06:17:00 AM EDT Patient discharged. Emergency H 03/05/2019 08:33:00 PM EDT - [address] [place] [address] 06:17:00 AM EDT Patient discharged. Emergency H 03/04/2019 10:25:00 PM EDT - [address] [place] [address] 06:21:00 AM EDT Patient discharged. Emergency H 03/03/2019 06:39:00 PM EDT - [address] [place] [address] 08:38:00 AM EDT Patient discharged. Emergency H 03/02/2019 04:28:00 PM EDT - [address] [place] [address] 06:28:00 AM EDT Patient discharged. Emergency H-ER 03/01/2019 07:38:00 PM EDT - [facility] 03/02/2019 06:43:00 AM EDT Patient discharged. Emergency H 03/01/2019 11:58:00 AM EDT - [address] [place] [address] 03:10:00 PM EDT Patient discharged. Emergency H 02/28/2019 07:10:00 PM EDT - [address] [place] [address] 06:36:00 AM EDT Patient discharged. Emergency H 02/27/2019 04:55:00 PM EDT - [address] [place] [address] 09:21:00 PM EDT Patient discharged. Emergency H 02/24/2019 01:31:00 PM EDT - [address] [place] [address] 05:19:00 PM EDT Patient discharged. Emergency H 02/23/2019 10:43:00 PM EDT - [address] [place] [address] 06:26:00 AM EDT Patient discharged. Emergency Attender: AGUILAR ED STAFF H 02/23/2019 03:53:00 PM [facility] PHYSICIANAdmitter: AGUILAR ED EDT - 02/23/2019 [facility] STAFF PHYSICIAN 11:10:00 PM EDT Patient discharged. Emergency H 02/22/2019 05:36:00 PM EDT - [address] [place] [address] 08:17:00 AM EDT Patient discharged. Emergency H 02/21/2019 05:19:00 PM EDT - [address] [place] [address] 09:06:00 AM EDT Patient discharged. Emergency H 02/19/2019 04:37:00 PM EDT - [address] [place] [address] 06:12:00 AM EDT Patient discharged. Emergency H 02/18/2019 05:43:00 PM EDT - [address] [place] [address] 10:19:00 PM EDT Patient discharged. Emergency H 02/17/2019 07:32:00 PM EDT - [address] [place] [address] 10:22:00 AM EDT Patient discharged. Emergency H 02/17/2019 11:35:00 AM EDT - [address] [place] [address] 05:03:00 PM EDT Patient discharged. Emergency Attender: AGUILAR ED STAFF H 02/16/2019 08:31:00 PM [facility] Medical PHYSICIAN EDT - 02/17/2019 09:52:00 Center AM EDT Patient discharged. Emergency H 02/15/2019 01:28:00 PM EDT - [address] [place] [address] 06:06:00 PM EDT Patient discharged. Emergency H 02/14/2019 08:12:00 PM EDT - [address] [place] [address] 08:23:00 AM EDT Patient discharged. Emergency H 02/13/2019 07:09:00 PM EDT - [address] [place] [address] 08:26:00 AM EDT Patient discharged. Emergency H 02/12/2019 01:57:00 PM EDT - [address] [place] [address] 04:14:00 AM EDT Patient discharged. Emergency H 02/11/2019 07:52:00 PM EDT - [address] [place] [address] 06:29:00 AM EDT Patient discharged. Emergency H 02/11/2019 01:28:00 PM EDT - [address] [place] [address] 06:46:00 PM EDT Patient discharged. Emergency H 02/09/2019 08:58:00 PM EDT - [address] [place] [address] 06:43:00 AM EDT Patient discharged. Emergency H 02/08/2019 01:31:00 PM EDT - [address] [place] [address] 08:50:00 AM EDT Patient discharged. Emergency H 02/07/2019 09:32:00 PM EDT - [address] [place] [address] 09:31:00 AM EDT Patient discharged. Emergency Attender: Josue Escobedo 02/05/2019 04:12:00 PM [facility] Andrea RICHMOND EDT - 02/06/2019 02:51:00 Center AM EDT Patient discharged. Emergency H 02/04/2019 06:27:00 PM EDT - [address] [place] [address] 06:44:00 AM EDT Patient discharged. Emergency H 02/03/2019 08:22:00 PM EDT - [address] [place] [address] 08:16:00 AM EDT Patient discharged. Emergency H-ER 02/02/2019 11:00:00 PM EDT - [facility] 02/03/2019 08:30:00 AM EDT Patient discharged. Emergency H 02/01/2019 09:37:00 PM EDT - [address] [place] [address] 08:40:00 AM EDT Patient discharged. Emergency H 02/01/2019 02:08:00 PM EDT - [address] [place] [address] 08:34:00 PM EDT Patient discharged. Emergency H 01/31/2019 03:49:00 PM EDT - [address] [place] [address] 08:20:00 PM EDT Patient discharged. Emergency H 01/29/2019 09:40:00 PM EDT - [address] [place] [address] 07:27:00 AM EDT Patient discharged. Emergency H 01/29/2019 12:08:00 PM EDT - [address] [place] [address] 07:18:00 PM EDT Patient discharged. Emergency H-ER 01/26/2019 06:27:00 PM EDT - [facility] 01/27/2019 06:21:00 AM EDT Patient discharged. Inpatient Attender: ELIANA STAHL H-HAL6 01/24/2019 07:34:00 [facility] ROBERTAdmitter: ELIANA PM EDT - 01/26/2019 [facility] FAVIO MONROYReferrer: 09:40:00 AM EDT ELIANA DAYEGTorsten MONROY Patient discharged. Inpatient Attender: ELIANA Sage-HAL6 01/19/2019 12:40:00 [facility] ROBERTAttender: SANG PM EDT - 01/24/2019 [facility] LEEAdmitter: ELIANA 08:33:00 AM EDT FAVIO MONROYReferrer: ELIANA MONROY Patient discharged. Immunizations Vaccine Date Status Description Data Source(s) Tdap 09/17/2019 completed [facility] edical 08:17:00 PM EDT Center Note that this vaccine 08/19/2019 [facility] Medical name has changed. See 08:48:00 PM EST Ce nter also Td (adult). It is not adsorbed. Note that this vaccine 08/19/2019 [facility] Medical name has changed. See 08:48:00 PM EST Ce nter also Td (adult). It is not adsorbed. Note that this vaccine 06/28/2019 completed [facility] Medical name has changed. See 12:42:00 AM EST Ce nter also Td (adult). It is not adsorbed. Medications Medication Brand Start Product Dose Route Administrative Pharmacy [facility] Indications Reaction Description Data Name Date [...] NaCl 0.9% 999 UNK active 0.9% NaCl [facility] IV NaCl 2020 mL IV 1000 mL; [facility] IV 05:17: IV rate: Health 42 PM Bolus over Care EST 30 minutes Corporati o n Medication administered onsite 0.9% 0.9% 08/16/2019 1000 mL UNK active 0.9% NaC l [place] NaCl IV NaCl IV 05:17:42 PM IV 1000 mL; [facility] IV rate: Care Bolus over Corporati on 30 minutes Medication administered onsite Insurance Providers Payer name Policy type Policy ID Covered Covered democrat's Policy P robert / Coverage democrat ID relationship to Thompson Inf ormation type thompson JM [id number] HEALTH NON CAP MEDICAID [id number] SP [id number] JM CARE W [id number] 01 [id number] [place] CARE W [id number] 01 [id number] W [id number] JM [id number] 300 HEALTH NON CAP JM CARE W [id number] 01 [id number] MEDICAID [id number] SP [id number] SELF PAY [id number] Self [id number] MEDICAID INP [id number] Self [id number] [facility] JM [id number] Self [id number] CARE MEDICAID [id number] SP [id number] JM CARE W [id number] 01 [id number] [place] [id number] SP [id number] JM W [id number] 01 [id number] 300 UNK UNK UNK UNK UNK UNK JM CARE W [id number] 01 [id number] [place] W [id number] 01 [id number] [place] W [id number] 01 [id number] JM W [id number] 01 [id number] 300 JM CARE W [id number] 01 [id number] 13 [place] CARE W [id number] 01 [id number] [place] CARE W [id number] 01 [id number] [place] W [id number] 01 [id number] W [id number] 01 [id number] JM CARE W [id number] 01 [id number] 13 [facility] [id number] SP [id number] Y W [id number] 01 [id number] W [id number] 01 [id number] JM W [id number] 01 [id number] JM W [id number] 01 [id number] 300 W [id number] 01 [id number] 13-00 JM W [id number] Problems, Conditions, and Diagnoses Code Display Name Description Problem Type Effective Data Sour ce(s) Dates F17.210 Nicotine NICOTINE Diagnosis 03/24/2020 [facility] dependence, DEPENDENCE, 05:26:[address] cigarettes, CIGARETTES, EDT uncomplicated UNCOMPLICATED J44.9 Chronic obstructive CHRONIC Diagnosis 03/24/2020 [facility] pulmonary disease, OBSTRUCTIVE 05:26:00 PM [facility] unspecified PULMONARY DISEASE, EDT UNSPECIFIED F10.20 Alcohol dependence, ALCOHOL Diagnosis 03/24/2020 [facility] uncomplicated DEPENDENCE, 05:26:00 PM Medical C enter UNCOMPLICATED EDT F10.129 Alcohol abuse with ALCOHOL ABUSE WITH Diagnosis 0 [facility] intoxication, INTOXICATION, 05:26:00 PM [facility] Center unspecified UNSPECIFIED EDT Z59.0 Homelessness HOMELESSNESS Diagnosis 03/23/2020 [facility] 05:47:00 PM Medical Cente r EDT 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 03/20/2020 [facility] heart disease of DISEASE OF [place] 01:00:00 PM [facility] resighini coronary CORONARY ARTERY EDT artery without W/O ANG PCTRS angina pectoris E83.42 Hypomagnesemia HYPOMAGNESEMIA Diagnosis 03/20/2020 [facility] 01:00:00 PM Medical Cente r EDT E87.6 Hypokalemia HYPOKALEMIA Diagnosis 03/20/2020 [facility] 01:00:00 PM Medical Cente r EDT D50.9 Iron deficiency IRON DEFICIENCY Diagnosis 03/20/2020 [facility] anemia, unspecified ANEMIA, 01:00:00 PM [facility] UNSPECIFIED EDT I10 Essential (primary) ESSENTIAL Diagnosis 03/20/2020 [facility] hypertension (PRIMARY) 01:00:00 PM Medical [facility] ter HYPERTENSION EDT M54.5 Low back pain LOW BACK PAIN Diagnosis 03/20/2020 [facility] r EDT E78.00 [...] mg/100 ml LEVEL OF 80-99 01:00:00 PM edical Center MG/100 ML EDT F10.239 Alcohol dependence ALCOHOL DEPENDENCE Diagnosis 0 [facility] with withdrawal, WITH WITHDRAWAL, [facility] UNSPECIFIED EDT I26.99 Other pulmonary OTHER PULMONARY Diagnosis 03/20/2020 [facility] embolism without EMBOLISM WITHOUT 01:00:00 PM edical Center acute cor pulmonale ACUTE COR EDT PULMONALE Z86.711 Personal history of PERSONAL HISTORY Diagnosis 03/20/2020 [facility] pulmonary embolism OF PULMONARY 01:00:00 PM [facility] EMBOLISM EDT I24.9 Acute ischemic ACUTE [...] Medical Cente r simulation] SIMULATION) EDT R40.2410 [place] coma scale RASHAD COMA SCALE Diagnosis 0 [facility] score 13-15, SCORE 13-15, 04:36:00 PM Medical C enter unspecified time UNSPECIFIED TIME EDT R07.89 Other chest pain OTHER CHEST PAIN Diagnosis 12/24/2019 [facility]12:[facility] R07.9 Chest pain, CHEST PAIN, Diagnosis 12/24/2019 [facility] unspecified UNSPECIFIED 11:12:[address] EDT F32.9 Major depressive MAJOR DEPRESSIVE Diagnosis 12/10/2019 [facility] disorder, single DISORDER, SINGLE [facility]39[facility], EPISODE, EDT unspecified UNSPECIFIED M54.2 Cervicalgia CERVICALGIA Diagnosis 12/08/2019 [facility] 01:04:00 [facility] ED[facility] Y92.[address] AND Diagnosis 11/30/2019 [place] and highway as the [address] PL[address] 03:04:[address] of occurrence EDT of the external cause Y93.9 Activity, ACTIVITY, Diagnosis 11/30/2019 [facility] unspecified UNSPECIFIED 03:04:[address] EDT W19.XXXA Unspecified fall, UNSPECIFIED FALL, Diagnosis 11/30/2019 [facility] initial encounter INITIAL ENCOUNTER 03:04:00 AM Medical Center EDT S01.91XA Laceration without LACERATION W/O Diagnosis 11/30/2019 [facility] [place] [facility] foreign body of FOREIGN BODY OF 03:04:00 AM [facility] unspecified part of UNSP PART OF [...] and orbital EYEBALL AND 05:20:00 PM Med ical Center tissues, left eye, ORBITAL TISSUES, EDT initial encounter LEFT EYE, INIT S00.212A Abrasion of left ABRASION OF LEFT Diagnosis 11/23/2019 [place] eyelid and EYELID AND 05:20:00 PM [facility] periocular area, PERIOCULAR AREA, EDT initial [...] head, initial OF HEAD, INITIAL 01:37:00 PM [facility] encounter ENCOUNTER EDT U07.1 COVID-19 ACUTE COVID-19 ACUTE Diagnosis 10/30/2019 [facility] RESPIRATORY DISEASE RESPIRATORY 02:58:00 PM [facility] DISEASE EDT R06.00 Dyspnea, DYSPNEA, Diagnosis 10/30/2019 [facility] unspecified UNSPECIFIED 02:58:00 PM Medical [facility] ter EDT Z00.00 Encounter for ENCNTR FOR GENERAL Diagnosis 10/21/2019 Rafael [facility] general adult ADULT MEDICAL EXAM 12:18:00 AM [facility] medical examination W/O ABNORMAL EDT without abnormal FINDINGS findings Y93.89 Activity, other ACTIVITY, OTHER Diagnosis 10/18/2019 [facility] specified SPECIFIED 06:11:00 AM [facility] EDT S80.211A Abrasion, right ABRASION, RIGHT Diagnosis 10/18/2019 [facility] knee, initial KNEE, INITIAL 06:11:00 AM Medical Center encounter ENCOUNTER EDT Z04.89 ENCOUNTER FOR ENCOUNTER FOR Diagnosis 10/18/2019 [facility] EXAMINATION AND EXAMINATION AND 06:11:00 AM [facility] OBSERVATION FOR OTH OBSERVATION FOR EDT REASONS OTH REASONS R41.0 Disorientation, DISORIENTATION, Diagnosis 10/13/2019 [facility] unspecified UNSPECIFIED 07:53:00 AM Medical [facility] ter EDT M25.511 Pain in right PAIN IN RIGHT Diagnosis 10/11/2019 [facility]ph[facility] shoulder SHOULDER 02:37:00 PM Medical Cente r EDT R06.02 Shortness of breath SHORTNESS OF Diagnosis 10/06/2019 [place] BREATH 09:24:00 AM [facility] EDT R51 Headache HEADACHE Diagnosis 09/19/2019 [facility] 07:49:00 AM [facility] r EDT F17.200 Nicotine NICOTINE Diagnosis 09/19/2019 [facility] dependence, DEPENDENCE, 07:49:[address] unspecified, UNSPECIFIED, EDT uncomplicated UNCOMPLICATED D64.9 Anemia, unspecified ANEMIA, Diagnosis 09/19/2019 [facility] UNSPECIFIED 07:49:00 AM [facility] EDT M62.81 Muscle weakness MUSCLE WEAKNESS Diagnosis 09/19/2019 [facility] (generalized) (GENERALIZED) 07:49:00 AM Medical Center EDT E46 Unspecified UNSPECIFIED Diagnosis 09/19/2019 [facility] protein-calorie PROTEIN-CALORIE 07:49:00 AM [facility] malnutrition MALNUTRITION EDT Z68.30 Body mass index BODY MASS INDEX Diagnosis 09/19/2019 [facility] (BMI) 30.0-30.9, (BMI) 30.0-30.9, 07:49:00 AM [facility] adult ADULT EDT H70.90 Unspecified UNSPECIFIED Diagnosis 09/17/2019 [facility] mastoiditis, MASTOIDITIS, 05:08:00 PM Medical C enter unspecified ear UNSPECIFIED EAR EDT M19.90 Unspecified UNSPECIFIED Diagnosis 09/17/2019 [facility] osteoarthritis, OSTEOARTHRITIS, 05:08:00 PM [facility] unspecified site UNSPECIFIED SITE EDT S00.03XA Contusion of scalp, CONTUSION OF Diagnosis 09/17/2019 Rafael [facility] initial encounter SCALP, INITIAL 05:08:00 PM [facility] ENCOUNTER EDT S00.01XA Abrasion of scalp, ABRASION OF SCALP, Diagnosis 0 [facility] initial encounter INITIAL ENCOUNTER 05:08:00 PM [facility] Center EDT R05 Cough COUGH Diagnosis 09/13/2019 [place] 08:56:00 AM Medical Cente r EDT R50.9 Fever, unspecified FEVER, UNSPECIFIED Diagnosis 0 [facility] 07:50:00 AM [facility] [place] [facility] EDT S22.089A Unspecified UNSP FRACTURE OF Diagnosis 08/27/2019 [facility] fracture of T11-T12 T11-T12 VERTEBRA, 08:45:00 PM Medical Center vertebra, initial INIT FOR CLOS FX EDT encounter for closed fracture S01.01XA Laceration without LACERATION WITHOUT Diagnosis 0 [facility] foreign body of FOREIGN BODY OF 07:15:00 PM [facility] ical Center scalp, initial SCALP, INITIAL EST encounter ENCOUNTER Z91.018 Allergy to other ALLERGY TO OTHER Diagnosis 08/16/2019 [place] [employer] FO[facility]S 03:33:00 PM [facility] [employer] I10 Essential (primary) ESSENTIAL Diagnosis 08/16/2019 [facility] hypertension (PRIMARY) 03:33:00 PM [facility] HYPERTENSION EST Care [employer] F10.10 Alcohol abuse, ALCOHOL ABUSE, Diagnosis 08/16/2019 [place] uncomplicated UNCOMPLICATED 03:33:00 PM [facility] [employer] F10.129 Alcohol abuse with ALCOHOL ABUSE WITH Diagnosis 0 [place] intoxication, INTOXICATION, 03:33:00 PM [facility] unspecified UNSPECIFIED [facility] Care [employer] K57.90 Diverticulosis of DVRTCLOS OF Diagnosis 08/08/2019 [facility] intestine, part INTEST, PART UNSP, 04:28:00 PM Medical Center unspecified, W/O PERF OR EST without perforation ABSCESS W/O BLEED or abscess without bleeding R10.9 Unspecified UNSPECIFIED Diagnosis 08/08/2019 [facility] abdominal pain ABDOMINAL PAIN 04:28:00 PM [facility] EST M79.641 Pain in right hand PAIN IN RIGHT HAND Diagnosis 0 [facility] 03:03:00 AM Medical Cente r EST S60.221A Contusion of right CONTUSION OF RIGHT Diagnosis 0 [facility] hand, initial HAND, INITIAL 01:34:00 PM Medical Center encounter ENCOUNTER EST R60.9 Edema, unspecified EDEMA, UNSPECIFIED Diagnosis 0 [facility] 01:34:00 PM Medical Cente r EST W01.0XXA Fall on same level FALL SAME LEV FROM Diagnosis 0 [facility] from slipping, SLIP/TRIP W/O 03:59:00 AM Medica l Center tripping and STRIKE AGAINST EST stumbling without OBJECT, INIT subsequent striking against object, initial encounter S63.614A Unspecified sprain UNSPECIFIED SPRAIN Diagnosis 0 [facility] of right ring OF RIGHT RING 03:59:00 AM Medical Center finger, initial FINGER, INITIAL EST encounter ENCOUNTER S63.616A Unspecified sprain UNSPECIFIED SPRAIN Diagnosis 0 [place] of right little OF RIGHT LITTLE 03:59:00 AM Med ical Center finger, initial FINGER, INITIAL EST encounter ENCOUNTER Z00.8 Encounter for other ENCOUNTER FOR Diagnosis 06/12/2019 [place] [facility] general examination OTHER GENERAL 08:47:00 [facility] EST M25.512 Pain in left PAIN IN LEFT Diagnosis 06/09/2019 [facility] shoulder SHOULDER 06:18:00 PM Medical Cente r EST S80.212A Abrasion, left ABRASION, LEFT Diagnosis 06/09/2019 [facility] knee, initial KNEE, INITIAL 06:18:00 PM Medical Center encounter ENCOUNTER EST Y92.219 Unspecified school [employer] THE Diagnosis 9 [facility] as the place of PLACE OF 01:37:00 PM Medical Center occurrence of the OCCURRENCE OF THE EST external cause EXTERNAL CAUSE M25.562 Pain in left knee PAIN IN LEFT KNEE Diagnosis 06/01/2019 [facility] 01:37:00 PM Medical Cente r EST M25.561 Pain in right knee PAIN IN RIGHT KNEE Diagnosis 9 [facility] 01:37:00 PM [facility] EST S01.81XA Laceration without LACERATION W/O Diagnosis 06/01/2019 [place] foreign body of FOREIGN BODY OF 01:37:00 PM [facility] ical Center other part of head, OTH PART OF HEAD, EST initial encounter INIT ENCNTR M25.569 Pain in unspecified PAIN IN Diagnosis 06/01/2019 [facility] knee UNSPECIFIED KNEE 01:37:00 PM Medical Center EST I16.0 Hypertensive HYPERTENSIVE Diagnosis 05/14/2019 [facility] urgency URGENCY 10:16:00 AM Medical Cente r EST Y90.0 Blood alcohol level BLOOD ALCOHOL Diagnosis 05/14/2019 [place] of less than 20 LEVEL OF LESS THAN 10:16:00 AM Medical Center mg/100 ml 20 MG/100 ML EST M25.519 Pain in unspecified PAIN IN Diagnosis 05/02/2019 [facility] shoulder UNSPECIFIED 03:18:00 PM [facility] SHOULDER EST Y92.[address] as the SIDEWALK THE Diagnosis 04/29/[address] of occurrence PLACE OF 02:53:00 AM [facility] of the external OCCURRENCE OF THE EST cause EXTERNAL CAUSE S42.031A Displaced fracture DISP FX OF LATERAL Diagnosis 9 [facility] of lateral end of END OF RIGHT 01:54:00 AM [facility] right clavicle, CLAVICLE, INIT FOR EST initial encounter CLOS FX for closed fracture F10.29 Alcohol dependence ALCOHOL DEPENDENCE Diagnosis 9 [facility] with unspecified WITH UNSPECIFIED 04:09:00 PM 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 Procedure and PROC/TRTMT NOT CRD Diagnosis 02/27/2019 Rafael nt [facility] treatment not OUT D/T PT LV BEF 04:55:00 PM Med ical Center carried out due to SEEN BY [facility] EDT patient leaving PROV prior to being seen by health care provider L60.0 Ingrowing nail INGROWING NAIL Diagnosis 02/15/2019 [facility] 01:28:00 PM Medical Cente r EDT Results ID Date Data Source Liver 03/20/2020 05:45:00 AM EDT [facility] Profile.[id number] Name Value Range Interpretation Description Data Sup [...] s"> (0.2-1.3 MG/DL)</content> ID Date Data Source HematologyRou.[id number] 03/20/2020 05:45:00 AM EDT [facility] 0400 Name Value Range [...] (< 1 %)</content> ID Date Data Source GFR(Creatinine).[id number] 03/20/2020 05:45:00 AM EDT [facility] 0-0400 Name Value Range Interpretation Code Description Data Pebbles rce(s) Supporting Document(s ) UNK > 60 <content [facility] styleCode="Bold"> Medical Cent er EGFR </content>144 GFR<content styleCode="Italic s"> (> 60 GFR)</content> ID Date Data Source Coagulation 03/20/2020 05:45:00 AM [facility] ical Center Rout.[id number] EDT Name Value Range Interpretation Description Data Sup porting Code Source(s) Document(s ) UNK 9.0-13.0 <content styleCode="Bold" [place] >Protime Medical </content>12.5 Center SEC<content styleCode="Itali cs"> (9.0-13.0 SEC)</content> INR in 0.80-1.2 <content [facility] Platelet poor 0 styleCode="Bold" [place] plasma by >INR Medical Coagulation </content>1.13 Center assay #<content styleCode="Itali cs"> (0.80-1.20 #)</content> aPTT in 25.1-36. <content [facility] Platelet poor 5 styleCode="Bold" [place] plasma by >Partial Medical Coagulation Thromboplastin Center assay Time </content>28.0 SEC<content styleCode="Itali cs"> (25.1-36.5 SEC)</content> ID Date Data Source CHMROUTINECCDA.[id number] 03/20/2020 05:45:00 AM [facility] Name Value Range Interpretation Description Data Sup porting Code Source(s) Document(s ) UNK >= 1.0 <content Saint styleCode="Mac [facility] d">AG Ratio Medical </content>1.2 Center <content styleCode="Zakia lics"> (>= 1.0 )</content> UNK 2.3-3.5 <content [facility] styleCode="[facility] d">Globulin Medical </content>2.6 Center G/DL<content styleCode="Zakia lics"> [...] Jacomes in Serum or d">Phosphorus Medical Plasma </content>4.2 Center MG/DL<content styleCode="Zakia lics"> (2.5-4.5 MG/DL)</conten t> ID Date Data Source [facility].[id number] 03/20/2020 05:45:00 AM EDT [facility] Center Name Value Range Interpretation [...] Data Source Liver 03/19/2020 05:30:00 AM EDT [facility] Profile.[id number] Name Value Range Interpretation Description Data Sup [...] s"> (0.2-1.3 MG/DL)</content> ID Date Data Source HematologyRou.[id number] 03/19/2020 05:30:00 AM EDT [facility] 0400 Name Value Range [...] (< 1 %)</content> ID Date Data Source GFR(Creatinine).[id number] 03/19/2020 05:30:00 AM EDT [facility] 0-0400 Name Value Range Interpretation Code Description Data Pebbles rce(s) Supporting Document(s ) UNK > 60 <content [facility] styleCode="Bold"> Medical Cent er EGFR </content>177 GFR<content styleCode="Italic s"> (> 60 GFR)</content> ID Date Data Source Coagulation 03/19/2020 05:30:00 AM [facility] ical Center Rout.[id number] EDT Name Value Range Interpretation Description Data [...] cs"> (25.1-36.5 SEC)</content> ID Date Data Source CHMROUTINECCDA.[id number] 03/19/2020 05:30:00 AM EDT [facility] -0400 Name Value Range Interpretation Description Data Sup porting Code Source(s) Document(s ) UNK 2.3-3.5 <content Saint styleCode="[facility] [place] d">Globulin Medical </content>2.5 Center G/DL<content styleCode="Zakia lics"> (2.3-3.5 G/DL)</content > UNK >= 1.0 <content [facility] styleCode="[facility] d">AG Ratio Medical </content>1.3 Center <content styleCode="Zakia lics"> (>= 1.0 )</content> Phosphate 2.5-4.5 <content Saint [Mass/volume] styleCode="[facility] in Serum or d">Phosphorus Medical Plasma </content>3.7 [...] (6.3-8.2 G/DL)</content > ID Date Data Source [facility].[id number] 03/19/2020 05:30:00 AM EDT [facility] Name Value Range Interpretation Description [...] MG/DL)</content> UNK > 60 <content Saint styleCode="Bold"> [facility] EGFR Medical </content>177 Center GFR<content styleCode="Italic s"> [...] IU/L)</content> Alkaline 38-126 <content [facility] phosphatase styleCode="Bold"> [facility] [Enzymatic Alkaline Medical activity/volume] Phosphatase (ALP) Cente r in Serum or Plasma </content>94 IU/L<content styleCode="Italic s"> (38-126 IU/L)</content> Albumin 3.5-5.0 Below low <content Saint [Mass/volume] in normal styleCode="Bold"> [facility] hs Serum or Plasma Albumin Medical </content>3.2 Center G/DL L<content styleCode="Italic s"> (3.5-5.0 G/DL)</content> ID Date Data Source Liver 03/18/2020 06:51:00 AM EDT [facility] Profile.[id number] Name Value Range Interpretation Description Data Sup [...] s"> (3.5-5.0 G/DL)</content> ID Date Data Source HematologyRou.[id number] 03/18/2020 06:51:00 AM EDT [facility] 0400 Name Value Range Interpretation Description Data Sup porting Code Source(s) Document(s ) Leukocytes 4.4-11.0 <content Saint [#/volume] in styleCode="Bold [facility] Blood by ">White Blood Medical Automated [...] (< 1 %)</content> ID Date Data Source GFR(Creatinine).[id number] 03/18/2020 06:51:00 AM EDT [facility] 0-0400 Name Value Range Interpretation Code Description Data Pebbles rce(s) Supporting Document(s ) UNK > 60 <content [facility] styleCode="Bold"> Medical Cent er EGFR </content>229 GFR<content styleCode="Italic s"> (> 60 GFR)</content> ID Date Data Source Coagulation 03/18/2020 06:51:00 AM [facility] Rout.[id number] EDT Name Value Range Interpretation Description Data [...] cs"> (25.1-36.5 SEC)</content> ID Date Data Source MROUTINECCDA.[id number] 03/18/2020 06:51:00 AM EDT [facility] -0400 Name Value Range [...] (6.3-8.2 G/DL)</content > ID Date Data Source [employer]Bank.[id number] 03/18/2020 06:51:00 AM EDT [facility] Name Value Range Interpretation Code Description Data Pebbles rce(s) Supporting Document(s ) UNK <content [facility] styleCode="Bold" Medical Cente r >Blood Type </content>GROUP O (Reference Range: not available)
UNK NEGATIVE <content [facility] styleCode="Bold" Medical Cente r >Antibody Screen </content>NEGATI VE <content styleCode="Itali cs"> (NEGATIVE )</content> UNK <content [facility] styleCode="Bold" Medical Cente r >RH Type </content>POSITI VE (Reference Range: not available)
ID Date Data Source BMP.[id number] 03/18/2020 06:51:00 AM EDT [facility] Name Value Range Interpretation Description [...] 03/17/2020 08:48:00 PM [facility] Rout.[id number] EDT Name Value Range Interpretation Description Data Sup porting Code Source(s) Document(s ) aPTT in 25.1-36. Above high normal <content [facility] Platelet poor 5 styleCode="Bold" [facility] plasma by >Partial Medical Coagulation Thromboplastin Center assay Time </content>90.0 SEC H<content styleCode="Itali cs"> (25.1-36.5 SEC)</content> ID Date Data Source Stools.[id number] 03/17/2020 03:45:00 PM EDT [facility] Name Value Range Interpretation Code Description Data Pebbles rce(s) Supporting Document(s ) UNK NEGATIVE <content [facility] styleCode="Bold" Medical Cente r >Guaiac, Occult Blood </content>NEGATI VE <content styleCode="Itali cs"> (NEGATIVE )</content> ID Date Data Source Liver 03/17/2020 10:30:00 AM EDT [facility] Profile.[id number] Name Value Range Interpretation Description Data Sup porting Code Source(s) Document(s ) Aspartate 17-59 <content [facility] aminotransferase styleCode="Bold"> [facility] [Enzymatic Aspartate Medical [...] s"> (3.5-5.0 G/DL)</content> ID Date Data Source HematologyRou.[id number] 03/17/2020 10:30:00 AM EDT [facility] 0400 Name Value Range Interpretation Description Data [...] ics"> (NORMAL )</content> ID Date Data Source GFR(Creatinine).[id number] 03/17/2020 10:30:00 AM EDT [facility] 0-0400 Name Value Range Interpretation Code Description Data Pebbles rce(s) Supporting Document(s ) UNK > 60 <content [facility] styleCode="Bold"> Medical Cent er EGFR </content>144 GFR<content styleCode="Italic s"> (> 60 GFR)</content> ID Date Data Source ChemistrySpecia.[id number] 03/17/2020 10:30:00 AM EDT [facility] 0-0400 Name Value Range Interpretation Description Data [...] 3.0 NG/ML)</conten t> ID Date Data Source CHMROUTINECCDA.[id number] 03/17/2020 10:30:00 AM EDT [facility] -0400 Name Value Range Interpretation Description Data Sup porting Code Source(s) Document(s ) UNK 2.3-3.5 <content [facility] styleCode="Bold Medical ">Globulin Center </content>2.6 G/DL<content styleCode="Ital ics"> (2.3-3.5 G/DL)</content> Folate > 3.0 <content [facility] [place] [Mass/volum styleCode="Bold Medical e] in Serum ">Folic Acid Center or Plasma </content>4.27 NG/ML<content styleCode="Ital ics"> (> 3.0 NG/ML)</content > UNK >= 1.0 <content [facility] styleCode="Bold Medical ">AG Ratio Center </content>1.4 <content styleCode="Ital ics"> (>= 1.0 )</content> Protein 6.3-8.2 Below low normal <content [facility] [Mass/volum styleCode="Bold Medical e] in Serum ">Total Protein Center or Plasma </content>6.2 G/DL L<content styleCode="Ital ics"> (6.3-8.2 G/DL)</content> ID Date Data Source [employer]Markers.[id number] 03/17/2020 10:30:00 AM EDT [facility] -0400 Name Value Range Interpretation Description Data Sup porting Code Source(s) Document(s ) Troponin < 0.034 <content [facility] I.cardiac styleCode="Bold [facility] [Mass/volume ">Troponin I Medical ] in Serum </content>< Center or Plasma 0.012 NG/ML<content styleCode="Ital ics"> (< 0.034 NG/ML)</content > ID Date Data Source [facility].[id number] 03/17/2020 10:30:00 AM EDT [facility] Name Value Range Interpretation Description Data Sup porting Code Source(s) Document(s ) Sodium 137-145 <content Saint [Moles/volume] in styleCode="Bold"> [facility] Serum or Plasma Sodium Medical </content>141 Center [...] s"> (0.2-1.3 MG/DL)</content> ID Date Data Source [employer]Markers.[id number] 03/17/2020 07:25:00 AM EDT [facility] -0400 Name Value Range Interpretation Description Data Sup porting Code Source(s) Document(s ) Troponin < 0.034 <content [facility] I.cardiac styleCode="Bold [place] [Mass/volume ">Troponin I Medical ] in Serum </content>< Center or Plasma 0.012 NG/ML<content styleCode="Ital ics"> (< 0.034 NG/ML)</content > ID Date Data Source HematologyRou.[id number] 03/17/2020 07:06:00 AM EDT [facility] 0400 Name Value Range Interpretation Description Data [...] (0.0 KCUMM)</content > ID Date Data Source GFR(Creatinine).[id number] 03/17/2020 07:06:00 AM EDT [facility] 0-0400 Name Value Range Interpretation Code Description Data Pebbles rce(s) Supporting Document(s ) UNK > 60 <content [facility] [place] styleCode="Bold"> Medical Cent er EGFR </content>144 GFR<content styleCode="Italic s"> (> 60 GFR)</content> ID Date Data Source CHMROUTINECCDA.[id number] 03/17/2020 07:06:00 AM EDT [facility] -0400 Name Value Range Interpretation Description Data [...] (1.6-2.3 MG/DL)</conten t> ID Date Data Source [facility].[id number] 03/17/2020 07:06:00 AM EDT [facility] Center Name Value Range Interpretation [...] (> 60 GFR)</content> ID Date Data Source [id number] 03/17/2020 12:00:00 AM EDT [facility] Name Value Range Interpretation Code Description Data Pebbles rce(s) Supporting Document(s ) 2019-nCoV [facility] RNA XXX CHERRI+probe- Imp This lab was ordered by [facility] and reported by [employer] [facility]. ID Date Data Source [id number] 02/11/2020 02:59:00 PM EDT [facility] Name Value Range Interpretation Description Data Sup porting Code Source(s) Document(s ) SARS [facility] coronavirus 2 RNA This lab was ordered by [facility] Sangeetha Lynn and reported by [facility]. ID Date Data Source [id number] 01/13/2020 11:43:00 PM EDT [facility] Name Value Range Interpretation Description Data Sup porting Code Source(s) Document(s ) SARS [facility] coronavirus 2 RNA This lab was ordered by Miguel Villeda and reported by [facility] ID Date Data Source [id number] 01/11/2020 11:30:00 AM EDT [facility] Name Value Range Interpretation Description Data Sup porting Code Source(s) Document(s ) SARS [facility] coronavirus 2 RNA This lab was ordered by [facility] and reported by [facility]. ID Date Data Source HematologyRou.[id number] 12/30/2019 11:00:00 PM EDT [facility] 0400 Name Value Range Interpretation Description Data [...] ics"> (8.0-11.0 FL)</content> ID Date Data Source GFR(Creatinine).[id number] 12/30/2019 11:00:00 PM EDT [facility] 0-0400 Name Value Range Interpretation Code Description Data Pebbles rce(s) Supporting Document(s ) UNK > 60 <content [facility] styleCode="Bold"> Medical Cent er EGFR </content>144 GFR<content styleCode="Italic s"> (> 60 GFR)</content> ID Date Data Source REMIGIO.[id number] 12/30/2019 11:00:00 PM EDT [facility] -0400 Name Value Range Interpretation Description Data Sup porting Code Source(s) Document(s ) Magnesium 1.6-2.3 Below low normal <content Saint [Mass/volume] styleCode="[place] in Serum or d">Magnesium Medical Plasma </content>1.2 Center MG/DL L<content styleCode="Zakia lics"> (1.6-2.3 MG/DL)</conten t> Phosphate 2.5-4.5 <content [facility] [Mass/volume] styleCode="[place] in Serum or d">Phosphorus Medical Plasma </content>4.0 Center MG/DL<content styleCode="Zakia lics"> (2.5-4.5 MG/DL)</conten t> ID Date Data Source [facility].[id number] 12/30/2019 11:00:00 PM EDT [facility] Name Value Range Interpretation Description [...] t> Creatinine 0.5-1.3 <content [facility] [Mass/volume] styleCode="Mac [place] in Serum or d">Creatinine Medical Plasma </content>0.6 [...] (> 60 GFR)</content> ID Date Data Source HematologyRou.[id number] 12/25/2019 12:50:00 AM EDT [facility] 0400 Name Value Range [...] low normal <content [facility] [Volume 0 styleCode="Bold [facility] Fraction] of ">Hematocrit Medical Blood by </content>29.4 [...] (0.0 KCUMM)</content > ID Date Data Source GFR(Creatinine).[id number] 12/25/2019 12:50:00 AM EDT [facility] 0-0400 Name Value Range Interpretation Code Description Data Pebbles rce(s) Supporting Document(s ) UNK > 60 <content [facility] styleCode="Bold"> Medical Cent er EGFR </content>178 GFR<content styleCode="Italic s"> (> 60 GFR)</content> ID Date Data Source CardiacMarkers.[id number] 12/25/2019 12:50:00 AM EDT [facility] -0400 Name Value Range Interpretation Description Data Sup porting Code Source(s) Document(s ) Troponin < 0.034 <content [facility] I.cardiac styleCode="Bold [place] [Mass/volume ">Troponin I Medical ] in Serum </content>< Center or Plasma 0.012 NG/ML<content styleCode="Ital ics"> (< 0.034 NG/ML)</content > ID Date Data Source BMP.[id number] 12/25/2019 12:50:00 AM EDT [facility] Name Value Range Interpretation Description [...] (8.4-10.2 MG/DL)</conten t> ID Date Data Source HematologyRou.[id number] 12/03/2019 08:37:00 PM EDT [facility] 0400 Name Value Range Interpretation Description Data [...] ics"> (NORMAL )</content> ID Date Data Source GFR(Creatinine).[id number] 12/03/2019 08:37:00 PM EDT [facility] 0-0400 Name Value Range Interpretation Code Description Data Pebbles rce(s) Supporting Document(s ) UNK > 60 <content [facility] styleCode="Bold"> Medical Cent er EGFR </content>178 GFR<content styleCode="Italic s"> (> 60 GFR)</content> ID Date Data Source CHMROUTINECCDA.[id number] 12/03/2019 08:37:00 PM EDT [facility] -0400 Name Value Range Interpretation Description Data Sup porting Code Source(s) Document(s ) Magnesium 1.6-2.3 Below low normal <content [facility] [Mass/volume] styleCode="[facility] [place] in Serum or d">Magnesium Medical Plasma </content>1.5 Center MG/DL L<content styleCode="Zakia lics"> (1.6-2.3 MG/DL)</conten t> ID Date Data Source [facility].[id number] 12/03/2019 08:37:00 PM EDT [facility] Name Value Range Interpretation Description [...] (> 60 GFR)</content> ID Date Data Source [id number] 11/27/2019 11:55:00 AM EDT [facility] Name Value Range Interpretation Description Data Sup porting Code Source(s) Document(s ) SARS [facility] CORONAVIRUS 2 RNA This lab was ordered by [facility] and reported by [facility]. ID Date Data Source Liver 11/25/2019 12:40:00 PM EDT [facility] Profile.[id number] Name Value Range Interpretation Description Data Sup [...] Range: not available)
ID Date Data Source HematologyRou.[id number] 11/25/2019 12:40:00 PM [facility] Name Value Range Interpretation Description [...] NORMAL <content [facility] styleCode="Bold [place] ">Macrocyte Medical </content>[facility] Center T <content styleCode="Ital ics"> (NORMAL )</content> UNK NORMAL <content [facility] styleCode="Bold [place] ">Microcyte Medical </content>SLIGH Center T <content styleCode="Ital ics"> (NORMAL )</content> UNK NORMAL <content [facility] styleCode="Bold [place] ">Hypochromia Medical </content>[facility] Center T <content styleCode="Ital ics"> (NORMAL )</content> ID Date Data Source GFR(Creatinine).[id number] 11/25/2019 12:40:00 PM EDT [facility] 0-0400 Name Value Range Interpretation Code Description Data Pebbles rce(s) Supporting Document(s ) UNK <content [facility] styleCode="Bold"> Medical Cent er EGFR </content>Test not performed. GFR (Reference Range: not available)
ID Date Data Source Coagulation 11/25/2019 12:40:00 PM [facility] Rout.[id number] EDT Name Value Range Interpretation Description Data [...] cs"> (25.1-36.5 SEC)</content> ID Date Data Source [facility].[id number] 11/25/2019 12:40:00 PM EDT [facility] -0400 Name Value Range Interpretation Description Data [...] Range: not available)
ID Date Data Source CardiacMarkers.[id number] 11/25/2019 12:40:00 PM EDT [facility] -0400 Name Value Range Interpretation Description Data Sup porting Code Source(s) Document(s ) Troponin < 0.034 <content [facility].cardiac styleCode="Bold [place] [Mass/volume ">Troponin I Medical ] in Serum </content>< Center or Plasma 0.012 NG/ML<content styleCode="Ital ics"> (< 0.034 NG/ML)</content > ID Date Data Source BMP.[id number] 11/25/2019 12:40:00 PM EDT [facility] Name Value Range Interpretation Description [...] Range: not available)
ID Date Data Source [id number] 11/12/2019 10:10:00 AM EDT [facility] Name Value Range Interpretation Description Data Sup porting Code Source(s) Document(s ) SARS [facility] CORONAVIRUS 2 RNA This lab was ordered by [facility] and reported by [facility]. ID Date Data Source [id number] 10/06/2019 09:50:00 AM EDT [facility] Name Value Range Interpretation Code Description Data Pebbles rce(s) Supporting Document(s ) COV2 [facility] This lab was ordered by [facility] and reported by [facility] [place]. ID Date Data Source [id number] 09/21/2019 05:56:00 PM EDT [facility] Name Value Range Interpretation Description Data Sup porting Code Source(s) Document(s ) SARS [facility] CORONAVIRUS 2 RNA This lab was ordered by [facility] and reported by [facility]. ID Date Data Source Microbiology.[id number] 09/18/2019 06:20:00 AM EDT [facility] 400 Name Value Range Interpretation Code Description Data Pebbles rce(s) Supporting Document(s ) UNK <item><content [facility] styleCode="Bold"> Medical Cent er Culture Status </content>
<t able><tbody><tr>< td>Specimen Number:</td><td>[id number]</td></tr ><tr><td>Sample Collection Date/Time: </td><td>09/18/2019 6:20 AM</td></tr><tr>< td>Specimen Source:</td><td>B LOOD</td></tr><tr ><td>Blood Culture:</td><td> Collection Plate Date: 09/18/2019 06:41 </td></tr><tr><td >Culture Report:</td><td>N O GROWTH AFTER 48 HOURS </td></tr><tr><td >Culture Status:</td><td>P reliminary </td></tr></tbody ></table></item> UNK <item><content [facility] styleCode="Bold"> Medical [facility] Culture Report </content>
<t able><tbody><tr>< td>Specimen Number:</td><td>[id number]</td></tr ><tr><td>Sample Collection Date/Time: </td><td>09/18/2019 6:20 AM</td></tr><tr>< td>Specimen Source:</td><td>B LOOD</td></tr><tr ><td>Blood Culture:</td><td> Collection Plate Date: 09/18/2019 06:41 </td></tr><tr><td >Culture Status:</td><td>P reliminary </td></tr><tr><td >Culture Report:</td><td>N O GROWTH AFTER 48 HOURS </td></tr></tbody ></table></item> ID Date Data Source Microbiology.[id number] 09/18/2019 06:05:00 AM EDT [facility] 400 Name Value Range Interpretation Code Description Data Pebbles rce(s) Supporting Document(s ) UNK <item><content [facility] styleCode="Bold"> [facility] Culture Report </content>
<t able><tbody><tr>< td>Specimen Number:</td><td>[id number]</td></tr ><tr><td>Sample Collection Date/Time: </td><td>09/18/2019 6:05 AM</td></tr><tr>< td>Specimen Source:</td><td>B LOOD</td></tr><tr ><td>Blood Culture:</td><td> Collection Plate Date: 09/18/2019 06:41 </td></tr><tr><td >Culture Status:</td><td>P reliminary </td></tr><tr><td >Culture Report:</td><td>N O GROWTH AFTER 48 HOURS </td></tr></tbody ></table></item> UNK <item><content [facility] styleCode="Bold"> [facility] Culture Status </content>
<t able><tbody><tr>< td>Specimen Number:</td><td>[id number]</td></tr ><tr><td>Sample Collection Date/Time: </td><td>09/18/2019 6:05 AM</td></tr><tr>< td>Specimen Source:</td><td>B LOOD</td></tr><tr ><td>Culture Report:</td><td>N O GROWTH AFTER 48 HOURS </td></tr><tr><td >Culture Status:</td><td>P reliminary </td></tr><tr><td >Blood Culture:</td><td> Collection Plate Date: 09/18/2019 06:41 </td></tr></tbody ></table></item> ID Date Data Source HematologyRou.[id number] 09/17/2019 11:54:00 PM EDT [facility] 0400 Name Value Range Interpretation Code Description Data Supporting Source(s) Document(s ) UNK 0.5-1.5 Below low normal <content [facility] styleCode="Bold"> Medical Retic % Center </content>0.40 % L<content styleCode="Italic s"> (0.5-1.5 %)</content> UNK 0.018-0.1 Below low normal <content [facility] styleCode="Bold"> Medical Reticulocyte Center Absolute Count </content>0.0148 MCUMM L<content styleCode="Italic s"> (0.018-0.1 MCUMM)</content> UNK 9.3-17.4 <content [facility] styleCode="Bold"> Medical Immature Center Reticulocyte Fraction </content>15.9 %<content styleCode="Italic s"> (9.3-17.4 %)</content> UNK 30.0-38.0 Below low normal <content [facility] styleCode="Bold"> Medical Reticulocyte Center Hemoglobin Equivalent </content>19.5 PG L<content styleCode="Italic s"> (30.0-38.0 PG)</content> ID Date Data Source HematologyRou.[id number] 09/17/2019 11:42:00 PM EDT [facility] 0400 Name Value Range Interpretation Description Data [...] ics"> (8.0-11.0 FL)</content> ID Date Data Source GFR(Creatinine).[id number] 09/17/2019 11:42:00 PM EDT [facility] 0-0400 Name Value Range Interpretation Code Description Data Pebbles rce(s) Supporting Document(s ) UNK > 60 <content [facility] styleCode="Bold"> Medical Cent er EGFR </content>144 GFR<content styleCode="Italic s"> (> 60 GFR)</content> ID Date Data Source ChemistrySpecia.[id number] 09/17/2019 11:42:00 PM EDT [facility] 0-0400 Name Value Range Interpretation Description Data [...] (239-931 PG/ML)</conten t> ID Date Data Source CHMROUTINECCDA.[id number] 09/17/2019 11:42:00 PM EDT [facility] -0400 Name Value Range [...] [facility] [Mass/volume] styleCode="Mac [place] in Serum or d">Iron Medical Plasma </content>20 Center UG/DL L<content styleCode="Zakia lics"> (49-181 UG/DL)</conten t> Folate > 3.0 <content [facility] [Mass/volume] styleCode="Mac [place] in Serum or d">Folic Acid Medical Plasma </content>7.01 Center NG/ML<content styleCode="Zakia lics"> (> 3.0 NG/ML)</conten t> Magnesium 1.6-2.3 Below lower panic <content [facility] [Mass/volume] limits styleCode="Mac [place] in Serum or d">Magnesium Medical Plasma </content><con Center tent styleCode="Mac d">0.9 MG/DL LL</content><c ontent styleCode="Zakia lics"> (1.6-2.3 MG/DL)</conten t> Phosphate 2.5-4.5 <content [facility] [Mass/volume] styleCode="Mac [place] in Serum or d">Phosphorus Medical Plasma </content>2.6 Center MG/DL<content styleCode="Zakia lics"> (2.5-4.5 MG/DL)</conten t> ID Date Data Source CardiacMarkers.[id number] 09/17/2019 11:42:00 PM EDT [facility] -0400 Name Value Range Interpretation Description Data Sup porting Code Source(s) Document(s ) Troponin < 0.034 <content [facility] I.cardiac styleCode="Bold [place] [Mass/volume ">Troponin I Medical ] in Serum </content>0.024 Center or Plasma NG/ML<content styleCode="Ital ics"> (< 0.034 NG/ML)</content > ID Date Data Source BMP.[id number] 09/17/2019 11:42:00 PM EDT [facility] Name Value Range Interpretation Description [...] normal <content [facility] styleCode="Mac Jacomes d">BUN Medical </content>6 Center MG/DL L<content styleCode="Zakia [...] Data Source Liver 09/06/2019 03:21:00 AM EDT [facility] Profile.[id number] Name Value Range Interpretation Description Data Sup [...] s"> (0.2-1.3 MG/DL)</content> ID Date Data Source HematologyRou.[id number] 09/06/2019 03:21:00 AM EDT [facility] 0400 Name Value Range [...] ics"> (0 /100)</content> ID Date Data Source GFR(Creatinine).[id number] 09/06/2019 03:21:00 AM EDT [facility] 0-0400 Name Value Range Interpretation Code Description Data Pebbles rce(s) Supporting Document(s ) UNK > 60 <content [facility] styleCode="Bold"> Medical Cent er EGFR </content>230 GFR<content styleCode="Italic s"> (> 60 GFR)</content> ID Date Data Source REMIGIO.[id number] 09/06/2019 03:21:00 AM EDT [facility] -0400 Name Value Range Interpretation Description Data [...] (2.5-4.5 MG/DL)</conten t> ID Date Data Source SHANITA.[id number] 09/06/2019 03:21:00 AM EDT [facility] Name Value Range Interpretation Description [...] s"> (3.5-5.0 G/DL)</content> ID Date Data Source [facility].[id number] 09/05/2019 10:28:00 AM EDT [facility] -0400 Name Value Range Interpretation Description Data Sup porting Code Source(s) Document(s ) Lactate 0.7-2.0 <content [facility] [Mass/volum styleCode="Bold Medical e] in Serum ">Lactic Acid Center or Plasma </content>1.9 MMOLL<content styleCode="Ital ics"> (0.7-2.0 MMOLL)</content > ID Date Data Source [id number] 09/05/2019 10:24:00 AM EDT [facility] Name Value Range Interpretation Code Description Data Pebbles rce(s) Supporting Document(s ) RESULT [facility] This lab was ordered by [facility] and reported by [facility] [place]. ID Date Data Source Microbiology.[id number] 09/05/2019 10:17:00 AM EDT [facility] 400 Name Value Range Interpretation Code Description Data Pebbles rce(s) Supporting Document(s ) UNK <item><content [facility] styleCode="Bold"> Medical Cent er Culture Status </content>
<t able><tbody><tr>< td>Specimen Number:</td><td>[id number]</td></tr ><tr><td>Sample Collection Date/Time: </td><td> 0 10:17 AM</td></tr><tr>< td>Specimen Source:</td><td>B LOOD</td></tr><tr ><td>Blood Culture:</td><td> Collection Plate Date: 09/05/2019 10:23 </td></tr><tr><td >Culture Status:</td><td>P reliminary </td></tr><tr><td >Culture Report:</td><td>C ulture in progress </td></tr><tr><td >Gram Stain:</td><td>GR AM POSITIVE COCCI IN CLUSTERS NOTIFIED WITH READ-BACK KERVIN ROLLE RN </td></tr></tbody ></table></item> UNK <item><content [facility] styleCode="Bold"> Medical Cent er Culture Report </content>
<t able><tbody><tr>< td>Specimen Number:</td><td>[id number]</td></tr ><tr><td>Sample Collection Date/Time: </td><td> 0 10:17 AM</td></tr><tr>< td>Specimen Source:</td><td>B LOOD</td></tr><tr ><td>Gram Stain:</td><td>GR AM POSITIVE COCCI IN CLUSTERS NOTIFIED WITH READ-BACK KERVIN ROLLE RN </td></tr><tr><td >Culture Report:</td><td>C ulture in progress </td></tr><tr><td >Culture Status:</td><td>P reliminary </td></tr><tr><td >Blood Culture:</td><td> Collection Plate Date: 09/05/2019 10:23 </td></tr></tbody ></table></item> ID Date Data Source Microbiology.[id number] 09/05/2019 10:16:00 AM EDT [facility] 400 Name Value Range Interpretation Code Description Data Pebbles rce(s) Supporting Document(s ) UNK <item><content [facility] styleCode="Bold"> Medical Cent er Culture Report </content>
<t able><tbody><tr>< td>Specimen Number:</td><td>[id number]</td></tr ><tr><td>Sample Collection Date/Time: </td><td> 0 10:16 AM</td></tr><tr>< td>Specimen Source:</td><td>B LOOD</td></tr><tr ><td>Blood Culture:</td><td> Collection Plate Date: 09/05/2019 10:24 </td></tr><tr><td >Culture Status:</td><td>P reliminary </td></tr><tr><td >Culture Report:</td><td>C ulture in progress </td></tr></tbody ></table></item> UNK <item><content [facility] styleCode="Bold"> Medical Cent er Culture Status </content>
<t able><tbody><tr>< td>Specimen Number:</td><td>[id number]</td></tr ><tr><td>Sample Collection Date/Time: </td><td> 0 10:16 AM</td></tr><tr>< td>Specimen Source:</td><td>B LOOD</td></tr><tr ><td>Culture Report:</td><td>C ulture in progress </td></tr><tr><td >Culture Status:</td><td>P reliminary </td></tr><tr><td >Blood Culture:</td><td> Collection Plate Date: 09/05/2019 10:24 </td></tr></tbody ></table></item> ID Date Data Source Liver 09/05/2019 10:16:00 AM EDT [facility] Profile.[id number] Name Value Range Interpretation Description Data Sup [...] s"> (0.2-1.3 MG/DL)</content> ID Date Data Source HematologyRou.[id number] 09/05/2019 10:16:00 AM [facility] 0400 Name Value Range Interpretation Description Data Sup porting Code Source(s) Document(s ) Hemoglobin 13.5-17. Below low normal <content [facility] [Mass/volume] in 5 styleCode="Bold [facility] Blood ">Hemoglobin Medical </content>8.4 Center G/DL L<content styleCode="Ital ics"> (13.5-17.5 G/DL)</content> Erythrocytes 4.4-5.9 Below low normal <content [facility] [#/volume] in styleCode="Bold [facility] Blood by ">Red Blood Medical Automated [...] ics"> (NORMAL )</content> UNK NORMAL <content [facility] styleCode="Bold [place] ">Hypochromia Medical </content>SLIGH Center T <content styleCode="Ital ics"> (NORMAL )</content> ID Date Data Source GFR(Creatinine).[id number] 09/05/2019 10:16:00 AM EDT [facility] 0-0400 Name Value Range Interpretation Code Description Data Pebbles rce(s) Supporting Document(s ) UNK > 60 <content [facility] styleCode="Bold"> Medical Cent er EGFR </content>178 GFR<content styleCode="Italic s"> (> 60 GFR)</content> ID Date Data Source CHMROUTINECCDA.[id number] 09/05/2019 10:16:00 AM EDT [facility] -0400 Name Value Range Interpretation Description Data Sup porting Code Source(s) Document(s ) UNK 2.3-3.5 <content [facility] styleCode="Bold Medical ">Globulin Center </content>2.6 G/DL<content styleCode="Ital ics"> (2.3-3.5 G/DL)</content> UNK >= 1.0 <content [facility] styleCode="Bold Medical ">AG Ratio Center </content>1.3 <content styleCode="Ital ics"> (>= 1.0 )</content> Protein 6.3-8.2 Below low normal <content [facility] [Mass/volum styleCode="Bold Medical e] in Serum ">Total Protein Center or Plasma </content>6.0 G/DL L<content styleCode="Ital ics"> (6.3-8.2 G/DL)</content> ID Date Data Source [facility].[id number] 09/05/2019 10:16:00 AM EDT [facility] Center Name Value Range Interpretation [...] 98-107 <content [facility] [Moles/volume] in styleCode="Bold"> [facility] Serum or Plasma Chloride Medical </content>104 [...] Data Source Liver 08/10/2019 01:50:00 AM EST [facility] Profile.[id number] Name Value Range Interpretation Description Data Sup [...] s"> (3.5-5.0 G/DL)</content> ID Date Data Source HematologyRou.[id number] 08/10/2019 01:50:00 AM [place] [facility] 0500 Name Value Range Interpretation Description Data [...] ics"> (0 /100)</content> ID Date Data Source GFR(Creatinine).[id number] 08/10/2019 01:50:00 AM EST [facility] 0-0500 Name Value Range Interpretation Code Description Data Pebbles rce(s) Supporting Document(s ) UNK > 60 <content [facility] styleCode="Bold"> Medical Cent er EGFR </content>144 GFR<content styleCode="Italic s"> (> 60 GFR)</content> ID Date Data Source BMP.[id number] 08/10/2019 01:50:00 AM EST [facility] Name Value Range Interpretation Description [...] 8.4-10. <content [facility] [Mass/volume] in 2 styleCode="Bold"> [facility] Serum or Plasma Calcium Medical </content>8.6 [...] s"> (38-126 IU/L)</content> ID Date Data Source Urinalysis.[id number] 08/09/2019 08:03:00 AM [place] [facility] 0 Name Value Range Interpretation Description Data Sup porting Code Source(s) Document(s ) Color of Urine YELLOW <content [facility] styleCode="Mac Jacomes d">Color, Medical Urine Center </content>YELL OW <content styleCode="Zakia lics"> (YELLOW )</content> UNK CLEAR <content [facility] styleCode="Mac Jacomes d">Urine [...] by Test d">Urine Medical strip Specific Center [place] </content>1.01 0 L<content styleCode="Zakia lics"> (1.015-1.025 )</content> [...] Data Source Liver 08/09/2019 08:03:00 AM EST [facility] Profile.[id number] Name Value Range Interpretation Description Data Sup [...] s"> (0.2-1.3 MG/DL)</content> ID Date Data Source HematologyRou.[id number] 08/09/2019 08:03:00 AM [place] [facility] 0500 Name Value Range Interpretation Description [...] ics"> (0 /100)</content> ID Date Data Source GFR(Creatinine).[id number] 08/09/2019 08:03:00 AM [facility] 0-0500 Name Value Range Interpretation Code Description Data Pebbles rce(s) Supporting Document(s ) UNK > 60 <content [facility] styleCode="Bold"> Medical Cent er EGFR </content>178 GFR<content styleCode="Italic s"> (> 60 GFR)</content> ID Date Data Source CHMROUTINECCDA.[id number] 08/09/2019 08:03:00 AM [facility] -0500 Name Value Range Interpretation Description Data Sup porting Code Source(s) Document(s ) UNK 30-110 <content [facility] styleCode="Bold Medical ">Amylase Center </content>35 IU/L<content styleCode="Ital ics"> (30-110 IU/L)</content> Lipase 23-300 Below low normal <content [facility] [Enzymatic styleCode="Bold Medical activity/vo ">Lipase Center lume] in </content>19 Serum or IU/L L<content Plasma styleCode="Ital ics"> (23-300 IU/L)</content> ID Date Data Source [facility].[id number] 08/09/2019 08:03:00 AM EST [facility] Medical [...] Data Source Liver 07/28/2019 06:25:00 AM EST [facility] Profile.[id number] Name Value Range Interpretation Description Data Sup [...] s"> (0.0-0.3 MG/DL)</content> ID Date Data Source HematologyRou.[id number] 07/28/2019 06:25:00 AM EST [facility] 0500 Name Value Range Interpretation Description Data [...] ics"> (8.0-11.0 FL)</content> ID Date Data Source GFR(Creatinine).[id number] 07/28/2019 06:25:00 AM [facility] 0-0500 Name Value Range Interpretation Code Description Data Pebbles rce(s) Supporting Document(s ) UNK > 60 <content [facility] styleCode="Bold"> Medical Cent er EGFR </content>178 GFR<content styleCode="Italic s"> (> 60 GFR)</content> ID Date Data Source CardiacMarkers.[id number] 07/28/2019 06:25:00 AM EST [facility] -0500 Name Value Range Interpretation Description Data Sup porting Code Source(s) Document(s ) Troponin < 0.034 <content [facility] I.cardiac styleCode="Bold [place] [Mass/volume ">Troponin I Medical ] in Serum </content>< Center or Plasma 0.012 NG/ML<content styleCode="Ital ics"> (< 0.034 NG/ML)</content > ID Date Data Source [facility].[id number] 07/28/2019 06:25:00 AM EST [facility] Center Name Value Range Interpretation [...] Date Data Source Liver 05/13/2019 11:52:00 AM [facility] Profile.[id number] Name Value Range Interpretation Description Data Sup [...] IU/L)</content> Alkaline 38-126 <content [facility] phosphatase styleCode="Bold"> [facility] [Enzymatic Alkaline Medical activity/volume] Phosphatase (ALP) [...] s"> (3.5-5.0 G/DL)</content> ID Date Data Source HematologyRou.[id number] 05/13/2019 11:52:00 AM EST [facility] 0500 Name Value Range Interpretation Description Data [...] (0.0 KCUMM)</content > ID Date Data Source GFR(Creatinine).[id number] 05/13/2019 11:52:00 AM EST [facility] 0-0500 Name Value Range Interpretation Code Description Data Pebbles rce(s) Supporting Document(s ) UNK > 60 <content [facility] styleCode="Bold"> Medical Cent er EGFR </content>178 GFR<content styleCode="Italic s"> (> 60 GFR)</content> ID Date Data [facility][id number] 05/13/2019 11:52:00 AM [place] [facility] -0500 Name Value Range Interpretation Description Data Sup porting Code Source(s) Document(s ) UNK >= 1.0 <content Saint styleCode="Mac Jacomes d">AG Ratio Medical </content>1.2 Center <content styleCode="Zakia lics"> (>= 1.0 )</content> UNK 2.3-3.5 <content [facility] styleCode="Mac Jacomes d">Globulin [...] Jacomes in Serum or d">Phosphorus Medical Plasma </content>3.7 Center MG/DL<content styleCode="Zakia lics"> (2.5-4.5 MG/DL)</conten t> ID Date Data Source [facility].[id number] 05/13/2019 11:52:00 AM [place] Ye[facility] Center Name Value Range Interpretation Description Data Sup porting Code Source(s) Document(s ) Sodium 137-145 <content [facility] [Moles/volume] in styleCode="Bold"> [facility] Serum or Plasma Sodium Medical </content>137 Center MEQ/L<content styleCode="Italic s"> (137-145 MEQ/L)</content> Potassium 3.5-5.3 <content [facility] [Moles/volume] in styleCode="Bold"> [facility] Serum or Plasma Potassium Medical </content>3.6 Center [...] s"> (38-126 IU/L)</content> ID Date Data Source HematologyRou.[id number] 05/10/2019 05:50:00 AM [place] [facility] 0500 Name Value Range Interpretation Description Data Sup porting Code Source(s) Document(s ) Leukocytes 4.4-11.0 <content Saint [#/volume] in styleCode="Bold [facility] Blood by ">White Blood Medical Automated [...] (0.0 KCUMM)</content > ID Date Data Source GFR(Creatinine).[id number] 05/10/2019 05:50:00 AM [facility] 0-0500 Name Value Range Interpretation Code Description Data Pebbles rce(s) Supporting Document(s ) UNK > 60 <content [facility] styleCode="Bold"> Medical Cent er EGFR </content>178 GFR<content styleCode="Italic s"> (> 60 GFR)</content> ID Date Data Source [facility]INE[facility].[id number] 05/10/2019 05:50:00 AM [facility] -0500 Name Value Range Interpretation Description [...] (1.6-2.3 MG/DL)</conten t> ID Date [id number] 05/10/2019 05:50:00 AM EST [facility] [place] [...] t> Glucose 74-106 <content [facility] [Mass/volume] styleCode="Mac Quiros in Serum or d">Glucose Medical Plasma </content>95 [...] 60 <content [facility] styleCode="Mac Jacomes d">EGFR Medical </content>178 Center GFR<content styleCode="Zakia lics"> (> 60 GFR)</content> ID Date Data Source Liver 05/09/2019 12:46:00 PM EST [facility] Profile.[id number] Name Value Range Interpretation Description Data Sup [...] s"> (3.5-5.0 G/DL)</content> ID Date Data Source GFR(Creatinine).[id number] 05/09/2019 12:46:00 PM [facility] 0-0500 Name Value Range Interpretation Code Description Data Pebbles rce(s) Supporting Document(s ) UNK > 60 <content [facility] styleCode="Bold"> Medical Cent er EGFR </content>178 GFR<content styleCode="Italic s"> (> 60 GFR)</content> ID Date Data Source CHMROUTINECCDA.[id number] 05/09/2019 12:46:00 PM [facility] -0500 Name Value Range Interpretation Description [...] (2.5-4.5 MG/DL)</conten t> ID Date Data Source [facility].[id number] 05/09/2019 12:46:00 PM EST [facility] Center Name Value Range Interpretation Description Data Sup porting Code Source(s) Document(s ) Sodium 137-145 Below low <content Saint [Moles/volume] in normal styleCode="Bold"> [facility] Serum or Plasma Sodium Medical </content>136 Center MEQ/L L<content styleCode="Italic s"> (137-145 MEQ/L)</content> Chloride 98-107 <content [facility] [Moles/volume] in styleCode="Bold"> [facility] Serum or Plasma Chloride Medical </content>102 Center MEQ/L<content styleCode="Italic s"> (98-107 MEQ/L)</content> Potassium 3.5-5.3 Below low <content [facility] [Moles/volume] in normal styleCode="Bold"> [facility] Serum or Plasma Potassium Medical </content>3.1 Center [...] GFR)</content> Aspartate 17-59 <content [facility] aminotransferase styleCode="Bold"> Stephna hs [Enzymatic Aspartate Medical activity/volume] Aminotransferase Center [...] Data Source Liver 05/08/2019 07:35:00 AM EST [facility] Profile.[id number] Name Value Range Interpretation Description Data Sup [...] IU/L)</content> Alkaline 38-126 <content [facility] phosphatase styleCode="Bold"> [facility] [Enzymatic Alkaline Medical activity/volume] Phosphatase (ALP) [...] s"> (3.5-5.0 G/DL)</content> ID Date Data Source LIPID.[id number] 05/08/2019 07:35:00 AM EST [facility] Name Value Range Interpretation Description Data Sup porting Code Source(s) Document(s ) Triglyceride < 150 <content [facility] [Mass/volume] in styleCode="Mac Ishaan Serum or Plasma d">Triglycerid [facility] Center </content>104 MG/DL<content styleCode="Zakia lics"> (< 150 MG/DL)</conten t> UNK > 60 Below low normal <content [facility] styleCode="Mac Ishaan d">HDL- Medical Cholesterol Center </content>59 MG/DL L<content styleCode="Zakia lics"> (> 60 MG/DL)</conten t> Cholesterol -<200 <content [facility] [Mass/volume] in styleCode="Mac Ishaan Serum or Plasma d">Cholesterol Medical </content>154 Center MG/DL<content styleCode="Zakia lics"> (-<200 MG/DL)</conten t> UNK < 100 <content [facility] styleCode="Mac Ishaan d">LDL-Cholest [facility] </content>74 MG/DL<content styleCode="Zakia lics"> (< 100 MG/DL)</conten t> ID Date Data Source HematologyRou.[id number] 05/08/2019 07:35:00 AM EST Rafael dalal [facility] 0500 Name Value Range Interpretation Description [...] (0.0 KCUMM)</content > ID Date Data Source GFR(Creatinine).[id number] 05/08/2019 07:35:00 AM [facility] 0-0500 Name Value Range Interpretation Code Description Data Pebbles rce(s) Supporting Document(s ) UNK > 60 <content [facility] styleCode="Bold"> Medical Cent er EGFR </content>178 GFR<content styleCode="Italic s"> (> 60 GFR)</content> ID Date Data Source CHMROUTINECCDA.[id number] 05/08/2019 07:35:00 AM [facility] -0500 Name Value Range Interpretation Description [...] (1.6-2.3 MG/DL)</conten t> ID Date Data Source [facility].[id number] 05/08/2019 07:35:00 AM EST [place] [facility] Center Name Value Range Interpretation Description Data Sup porting Code Source(s) Document(s ) Sodium 137-145 Below low <content [facility] [Moles/volume] in normal styleCode="Bold"> [facility] Serum or Plasma Sodium Medical </content>136 Center MEQ/L L<content styleCode="Italic s"> (137-145 MEQ/L)</content> Chloride 98-107 <content [facility] [Moles/volume] in styleCode="Bold"> [facility] Serum or Plasma Chloride Medical </content>99 [...] s"> (3.5-5.0 G/DL)</content> ID Date Data Source Urinalysis.[id number] 05/07/2019 04:00:00 PM [place] [facility] 0 Name Value Range Interpretation Description Data Sup porting Code Source(s) Document(s ) Color of Urine YELLOW <content Saint styleCode="Mac Sihaan d">Color, Medical Urine Center </content>AMBE R <content [...] by Test d">Urine Medical strip Specific Center [place] </content>1.01 0 L<content styleCode="Zakia lics"> (1.015-1.025 )</content> [...] styleCode="Zakia lics"> (NONE HPF)</content> UNK NEGATIVE <content styleCode="Mac Quiros d">Urine Medical Bacteria Center </content>FEW HPF<content styleCode="Zakia lics"> (NEGATIVE HPF)</content> UNK NONE SEEN <content [facility] styleCode="Mac Jacomes d">Epithelial Medical Cell Center </content>10 - 20 HPF<content styleCode="Zakia lics"> (NONE SEEN HPF)</content> ID Date Data Source CHMROUTINECCDA.[id number] 05/07/2019 04:00:00 PM [facility] -0500 Name Value Range Interpretation Description Data Sup porting Code Source(s) Document(s ) Cannabinoids <content Saint [Presence] in styleCode="Mac Quiros Urine by Screen d">Cannabinoid Medical method >50 ng/mL s Center </content>NEGA TIVE NG/ML (Reference Range: not available)<br/ > ID Date Data Source Liver 05/07/2019 02:18:00 PM [facility] Profile.[id number] Name Value Range Interpretation Description Data Sup [...] s"> (3.5-5.0 G/DL)</content> ID Date Data Source GFR(Creatinine).[id number] 05/07/2019 02:18:00 PM [place] [facility] 0-0500 Name Value Range Interpretation Code Description Data Pebbles rce(s) Supporting Document(s ) UNK > 60 <content [facility] styleCode="Bold"> Medical Cent er EGFR </content>178 GFR<content styleCode="Italic s"> (> 60 GFR)</content> ID Date Data Source [facility].[id number] 05/07/2019 02:18:00 PM EST [facility] Name Value Range Interpretation Description [...] styleCode="Italic s"> (0.2-1.3 MG/DL)</content> Alkaline <content [facility] phosphatase styleCode="Bold"> [facility] [Enzymatic Alkaline Medical activity/volume] Phosphatase (ALP) Cente r in Serum or Plasma </content>Test not performed. IU/L (Reference Range: not available)
Alanine <content [facility] aminotransferase styleCode="Bold"> Stephan hs [Enzymatic Alanine Medical activity/volume] Aminotransferase Center in Serum or Plasma (ALT) </content>Test not performed. IU/L (Reference Range: not available)
Albumin 3.5-5.0 Below low <content [facility] [Mass/volume] in normal styleCode="Bold"> Stephan hs Serum or Plasma Albumin Medical </content>3.3 Center G/DL L<content styleCode="Italic s"> (3.5-5.0 G/DL)</content> ID Date Data Source CHMROUTINECCDA.[id number] 05/07/2019 02:18:00 PM [place] [facility] -0500 Name Value Range Interpretation Description Data Sup porting Code Source(s) Document(s ) UNK 2.3-3.5 <content [facility] styleCode="Bold Medical ">Globulin Center </content>2.9 G/DL<content styleCode="Ital ics"> (2.3-3.5 G/DL)</content> UNK >= 1.0 <content [facility] styleCode="Bold Medical ">AG Ratio Center </content>1.1 <content styleCode="Ital ics"> (>= 1.0 )</content> Protein 6.3-8.2 Below low normal <content [facility] [Mass/volum styleCode="Bold Medical e] in Serum ">Total Protein Center or Plasma </content>6.2 G/DL L<content styleCode="Ital ics"> (6.3-8.2 G/DL)</content> ID Date Data Source GFR(Creatinine).[id number] 05/07/2019 12:50:00 PM EST Rafael dalal [facility] 0-0500 Name Value Range Interpretation Code Description Data Pebbles rce(s) Supporting Document(s ) UNK <content [facility] Qui[facility] styleCode="Bold"> Medical Cent er EGFR </content>Test not performed. GFR (Reference Range: not available)
ID Date Data Source BMP.[id number] 05/07/2019 12:50:00 PM EST [facility] Center Name Value Range Interpretation [...] Data Source Liver 05/07/2019 10:05:00 AM EST [facility] Profile.[id number] Name Value Range Interpretation Description Data Sup [...] Range: not available)
ID Date Data Source HematologyRou.[id number] 05/07/2019 10:05:00 AM [place] [facility] 0500 Name Value Range Interpretation Description Data [...] low normal <content [facility] [Volume 0 styleCode="Bold [facility] Fraction] of ">Hematocrit Medical Blood by </content>32.0 [...] (0.0 KCUMM)</content > ID Date Data Source GFR(Creatinine).[id number] 05/07/2019 10:05:00 AM MO [facility] 0-0500 Name Value Range Interpretation Code Description Data Pebbles rce(s) Supporting Document(s ) UNK <content [facility] styleCode="Bold"> Medical Cent er EGFR </content>Test not performed. GFR (Reference Range: not available)
ID Date Data Source [facility].[id number] 05/07/2019 10:05:00 AM EST [facility] Name Value [...] Data Source Liver 02/19/2019 05:25:00 PM EDT [facility] Profile.[id number] Name Value Range Interpretation Description Data Sup [...] s"> (0.2-1.3 MG/DL)</content> ID Date Data Source HematologyRou.[id number] 02/19/2019 05:25:00 PM EDT [facility] 0400 Name Value Range Interpretation Description Data [...] Platelets 130-400 <content [facility] [#/volume] in styleCode="Bold [facility] Blood by ">Platelet Medical Automated count Count Center </content>175 KCUMM<content styleCode="Ital ics"> (130-400 KCUMM)</content > ID Date Data Source GFR(Creatinine).[id number] 02/19/2019 05:25:00 PM EDT [facility] 0-0400 Name Value Range Interpretation Code Description Data Pebbles rce(s) Supporting Document(s ) UNK > 60 <content [facility] styleCode="Bold"> Medical Cent er EGFR </content>144 GFR<content styleCode="Italic s"> (> 60 GFR)</content> ID Date Data Source BMP.[id number] 02/19/2019 05:25:00 PM EDT [facility] Name Value Range Interpretation Description Data Sup porting Code Source(s) Document(s ) Sodium 137-145 <content [facility] [Moles/volume] in styleCode="Bold"> [facility] Serum or Plasma Sodium Medical </content>145 Center MEQ/L<content styleCode="Italic s"> (137-145 MEQ/L)</content> Potassium <content [facility] [Moles/volume] in styleCode="Bold"> [facility] Serum or Plasma Potassium Medical </content>Test Center not performed. MEQ/L (Reference Range: not available)
UNK 9-20 <content Saint styleCode="Bold"> [facility] BUN </content>9 Medical MG/DL<content Center styleCode="Italic [...] </content>3.8 Center G/DL<content styleCode="Italic s"> (3.5-5.0 G/DL)</content> Procedure Social History Code Duration Value Status [...] Smoker completed Former Smoker [facility] 05:53:00 PM EDT Medical C enter Smoking 03/22/2020 Former Smoker completed Former Smoker [facility] 08:26:00 PM EDT Medical C enter Smoking 03/22/2020 Former Smoker completed Former Smoker [facility] 07:02:00 PM EDT Medical C enter Smoking 03/22/2020 Former Smoker completed Former Smoker [facility] 06:59:00 PM EDT Medical C [...] Smoker completed Former Smoker [facility] 01:08:00 AM EDT Medical C enter Smoking 03/11/2020 Former Smoker completed Former Smoker [facility] 07:46:00 PM EDT Medical C enter Smoking 03/11/2020 Former Smoker completed Former Smoker [facility] 07:46:00 PM EDT Medical C enter Smoking 03/07/2020 Former Smoker completed Former Smoker [facility] 01:03:00 AM EDT Medical C enter Smoking 03/07/2020 Former Smoker completed Former Smoker [facility] 12:29:00 AM EDT Medical C enter [...] completed Former Smoker [facility] 01:11:00 PM EDT Medical C enter Smoking 03/01/2020 Former Smoker completed Former Smoker [facility] 12:40:00 PM EDT Medical C enter Smoking 03/01/2020 Former Smoker completed Former Smoker [facility] 12:33:00 PM EDT Medical C enter [...] Former Smoker [facility] 05:13:00 AM EDT Medical C enter Smoking 02/28/2020 Former Smoker completed Former Smoker [facility] 08:51:00 PM EDT Medical C enter Smoking 02/28/2020 Former Smoker completed Former Smoker [facility] 08:51:00 PM EDT Medical C enter Smoking 02/28/2020 Former Smoker completed Former Smoker [facility] 11:30:00 AM EDT Medical C enter Smoking 02/28/2020 Former Smoker completed Former Smoker [facility] 11:24:00 AM EDT Medical C enter [...] Smoker completed Former Smoker [facility] 08:27:00 PM EDT Medical C enter Smoking 02/10/2020 Former Smoker completed Former Smoker [facility] 04:52:00 AM EDT Medical C enter Smoking 02/09/2020 Former Smoker completed Former Smoker [facility] 09:51:00 PM EDT Medical C enter Smoking 02/09/2020 Former Smoker completed Former Smoker [facility] 09:49:00 PM EDT Medical C enter [...] Smoking 12/27/2019 Former Smoker completed Former Smoker Kitty sephs 06:30:00 PM EDT Medical C [...] 12/20/2019 Former Smoker completed Former Smoker [facility] 09:28:00 PM EDT Medical C enter Smoking 12/20/2019 Former Smoker completed Former Smoker [facility] 09:17:00 PM EDT Medical C enter Smoking 12/20/2019 Former Smoker completed Former Smoker [facility] 08:58:00 PM EDT Medical C enter Smoking 12/17/2019 Former Smoker completed Former Smoker [facility] sephs 11:41:00 PM EDT Medical C enter Smoking 12/17/2019 Former Smoker completed Former Smoker [facility]phs 04:43:00 PM EDT Medical C enter [...] Former Smoker [facility] 12:22:00 AM EDT Medical C enter [...] Former Smoker [facility] 01:04:00 AM EDT Medical C enter Smoking 12/02/2019 Former Smoker completed Former Smoker [facility] 08:34:00 PM EDT Medical C enter Smoking 12/02/2019 Former Smoker completed Former Smoker [facility] 08:22:00 PM EDT Medical C enter [...] 11/23/2019 Former Smoker completed Former Smoker [facility]phs 07:07:00 PM EDT Medical C enter Smoking 11/23/2019 Former Smoker completed Former Smoker [facility] 05:30:00 PM EDT Medical C enter Smoking 11/23/2019 Former Smoker completed Former Smoker [facility]ph[facility] 05:25:00 PM EDT Medical C enter Smoking 11/23/2019 Former Smoker completed Former Smoker [facility]phs 02:21:00 AM EDT Medical C enter Smoking 11/22/2019 Former Smoker completed Former Smoker [facility]phs 09:07:00 PM EDT Medical C enter Smoking 11/22/2019 Former Smoker completed Former Smoker [facility] sephs 08:32:00 PM EDT Medical C enter Smoking 11/22/2019 Former Smoker completed Former Smoker [facility]phs 02:37:00 PM EDT Medical C enter [...] Former Smoker [facility]phs 08:14:00 PM EDT Medical C enter Smoking 10/31/2019 Former Smoker completed Former Smoker [facility]phs 06:30:00 PM EDT Medical C enter Smoking 10/31/2019 Former Smoker completed Former Smoker [facility] 06:19:00 PM EDT Medical C enter Smoking 10/30/2019 Former Smoker completed Former Smoker [facility]ph[facility] 04:02:00 PM EDT Medical C enter Smoking 10/30/2019 Former Smoker completed Former Smoker [facility] sephs 03:20:00 PM EDT Medical C enter Smoking 10/30/2019 Former Smoker completed Former Smoker [facility] sephs 03:12:00 PM EDT Medical C enter Smoking 10/28/2019 Former Smoker completed Former Smoker [facility] sephs 09:18:00 PM EDT Medical C enter Smoking 10/28/2019 Former Smoker completed Former Smoker [facility]phs 09:03:00 PM EDT Medical C enter Smoking 10/28/2019 Former Smoker completed Former Smoker [facility] sephs 08:56:00 PM EDT Medical C enter Smoking 10/27/2019 Former Smoker completed Former Smoker [facility]ph[facility] 06:59:00 PM EDT Medical C [...] Former Smoker [facility] 12:24:00 AM EDT Medical C enter Smoking 10/19/2019 Former Smoker completed Former Smoker [facility] 08:42:00 PM EDT Medical C enter [...] Smoker completed Former Smoker [facility]phs 07:07:00 AM EDT Medical C enter Smoking 10/18/2019 Former Smoker completed Former Smoker Kitty sephs 06:31:00 AM EDT Medical C enter Smoking 10/17/2019 Former Smoker completed Former Smoker [facility] sephs 10:32:00 PM EDT Medical C enter [...] Smoking 09/17/2019 Former Smoker completed Former Smoker Kitty sephs 06:43:00 PM EDT Medical C enter [...] Smoker completed Former Smoker [facility]phs 09:02:00 AM EDT Medical C enter Smoking 09/13/2019 Former Smoker completed Former Smoker [facility] sephs 07:14:00 AM EDT Medical C enter Smoking 09/12/2019 Former Smoker completed Former Smoker [facility] sephs 07:21:00 AM EDT Medical C enter Smoking 09/11/2019 Former Smoker completed Former Smoker [facility] sephs 11:00:00 PM EDT Medical C enter [...] 09/05/2019 Occasional Smoker completed Occasional Smoker [facility] 05:58:00 PM EDT Medical C enter Smoking [...] Denies Ever completed Denies Ever Smoked [facility] Sihaan 04:04:00 PM EST Smoked Medical C enter [...] Ever completed Denies Ever Smoked [facility] 01:14:00 PM EST Smoked Medical C enter [...] Interpretation Code Description Data Source(s) Body temperature 36.401243 Kaylie 36.529478 [facility] Respiratory rate 18 /min 18 /min [facility] Oxygen 97 % 97 % [facility] saturation in Medical Arterial blood Center by Pulse oximetry Heart rate 90 /min 90 /min [facility] Diastolic blood 75 mm[Hg] 75 mm[Hg] [facility] pressure Medical Center Systolic blood 145 mm[Hg] 145 mm[Hg] [facility] Medical Center Body weight 68.492861 kg 68.746801 kg [facility] Medical [place] Body temperature 36.314538 Kaylie 36.144746 [facility] Respiratory rate 18 /min 18 /min [facility] Oxygen 100 % 100 % [facility] saturation in Medical Arterial blood Center by Pulse oximetry Heart rate 88 /min 88 /min [facility] Body height 170.077964 cm 170.727997 cm [facility] Diastolic blood 74 mm[Hg] 74 mm[Hg] [facility] pressure Medical Center Systolic blood 130 mm[Hg] 130 mm[Hg] [facility] Medical Center Body mass index 23.4 kg/m2 23.4 kg/m2 [facility] (BMI) [Ratio] Medical Center Body temperature 37.896501 Kaylie 37.388247 [facility] Respiratory rate 18 /min 18 /min [facility] Oxygen 93 % 93 % [facility] saturation in Medical Arterial blood Center by Pulse oximetry Heart rate 97 /min 97 /min [facility] Diastolic blood 81 mm[Hg] 81 mm[Hg] [facility] pressure Medical Center Systolic blood 129 mm[Hg] 129 mm[Hg] [facility] Body temperature 37.950975 Kaylie 37.534844 [facility] Respiratory rate 19 /min 19 /min [facility] Oxygen 93 % 93 % [facility] saturation in Medical Arterial blood Center by Pulse oximetry Heart rate 96 /min 96 /min [facility] Diastolic blood 76 mm[Hg] 76 mm[Hg] [facility] pressure Medical Center Systolic blood 134 mm[Hg] 134 mm[Hg] [facility] Body temperature 37.256443 Kaylie 37.689675 [facility] Respiratory rate 19 /min 19 /min [facility] Oxygen 93 % 93 % [facility] saturation in Medical Arterial blood Center by Pulse oximetry Heart rate 95 /min 95 /min [facility] Diastolic blood 66 mm[Hg] 66 mm[Hg] [facility] pressure Medical Center Systolic blood 154 mm[Hg] 154 mm[Hg] [facility] Body temperature 37.019360 Kaylie 37.354114 [facility] Respiratory rate 18 /min 18 /min [facility] Oxygen 95 % 95 % [facility] saturation in Medical Arterial blood Center by Pulse oximetry Heart rate 86 /min 86 /min [facility] Diastolic blood 72 mm[Hg] 72 mm[Hg] [facility] Medical Center Systolic blood 108 mm[Hg] 108 mm[Hg] [facility] Medical Center Body temperature 36.705770 Kaylie 36.494609 [facility] Respiratory rate 18 /min 18 /min [facility] Oxygen 98 % 98 % [facility] saturation in Medical Arterial blood Center by Pulse oximetry Heart rate 84 /min 84 /min [facility] Diastolic blood 80 mm[Hg] 80 mm[Hg] [facility] Medical Center Systolic blood 127 mm[Hg] 127 mm[Hg] [facility] Medical [place] Body temperature 37.785565 Kaylie 37.934040 [facility] Respiratory rate 16 /min 16 /min [facility] Oxygen 98 % 98 % [facility] saturation in Medical Arterial blood Center by Pulse oximetry Heart rate 84 /min 84 /min [facility] Diastolic blood 76 mm[Hg] 76 mm[Hg] [facility] Medical [place] Systolic blood 128 mm[Hg] 128 mm[Hg] [facility] Body temperature 37.083976 Kaylie 37.320714 [facility] Respiratory rate 16 /min 16 /min [facility] Oxygen 98 % 98 % [facility] saturation in Medical Arterial blood Center by Pulse oximetry Heart rate 84 /min 84 /min [facility] Diastolic blood 76 mm[Hg] 76 mm[Hg] [facility] Center Systolic blood 128 mm[Hg] 128 mm[Hg] [facility] Body temperature 37.873822 Kaylie 37.240917 [facility] Respiratory rate 17 /min 17 /min [facility] Oxygen 98 % 98 % [facility] saturation in Medical Arterial blood Center by Pulse oximetry Heart rate 87 /min 87 /min [facility] Diastolic blood 70 mm[Hg] 70 mm[Hg] [facility] [facility] Systolic blood 121 mm[Hg] 121 mm[Hg] [facility] Body temperature 36.390767 Kaylie 36.375826 [facility] Respiratory rate 16 /min 16 /min [facility] Oxygen 98 % 98 % [facility] saturation in Medical Arterial blood Center by Pulse oximetry Heart rate 89 /min 89 /min [facility] Diastolic blood 75 mm[Hg] 75 mm[Hg] [facility] pressure Medical [place] Systolic blood 135 mm[Hg] 135 mm[Hg] [facility] Body temperature 36.219216 Kaylie 36.871502 [facility] Respiratory rate 17 /min 17 /min [facility] Oxygen 96 % 96 % [facility] saturation in Medical Arterial blood Center by Pulse oximetry Heart rate 95 /min 95 /min [facility] Diastolic blood 78 mm[Hg] 78 mm[Hg] [facility] [place] Systolic blood 141 mm[Hg] 141 mm[Hg] [facility] [place] Body temperature 37.166722 Kaylie 37.428691 [facility] Respiratory rate 20 /min 20 /min [facility] Heart rate 98 /min 98 /min [facility] Diastolic blood 61 mm[Hg] 61 mm[Hg] [facility] [place] Systolic blood 142 mm[Hg] 142 mm[Hg] [facility] Body temperature 36.481307 Kaylie 36.757416 [facility] Respiratory rate 20 /min 20 /min [facility] Heart rate 80 /min 80 /min [facility] Diastolic blood 72 mm[Hg] 72 mm[Hg] [facility] [place] Systolic blood 135 mm[Hg] 135 mm[Hg] [facility] Body temperature 36.905315 Kaylie 36.874173 [facility] Respiratory rate 20 /min 20 /min [facility] Heart rate 91 /min 91 /min [facility] Diastolic blood 77 mm[Hg] 77 mm[Hg] [facility] [place] Systolic blood 128 mm[Hg] 128 mm[Hg] [facility] [place] Body temperature 36.564943 Kaylie 36.307797 [facility] Respiratory rate 20 /min 20 /min [facility] Heart rate 102 /min 102 /min [facility] Diastolic blood 72 mm[Hg] 72 mm[Hg] [facility] Systolic blood 102 mm[Hg] 102 mm[Hg] [facility] [place] Body weight 114.450446 kg 114.160358 kg [facility] Body height 175.831039 cm 175.491035 cm [facility] Body mass index 37.11 kg/m2 37.11 kg/m2 [facility] (BMI) [Ratio] [facility] Center Body temperature 36.852730 Kaylie 36.322278 [facility] Respiratory rate 20 /min 20 /min [facility] Heart rate 91 /min 91 /min [facility] Diastolic blood 71 mm[Hg] 71 mm[Hg] [facility] Systolic blood 156 mm[Hg] 156 mm[Hg] [facility] Body temperature 36.921578 Kaylie 36.645981 [facility] Respiratory rate 20 /min 20 /min [facility] Heart rate 97 /min 97 /min [facility] Diastolic blood 88 mm[Hg] 88 mm[Hg] [facility] Systolic blood 182 mm[Hg] 182 mm[Hg] [facility] Body weight 114.384225 kg [address].5816[address] [facility] Body height 177.695034 cm 177.352357 cm [facility] Body temperature 37.701621 Kaylie 37.445084 [facility] Respiratory rate 18 /min 18 /min [facility] Heart rate 113 /min 113 /min [facility] Diastolic blood 102 mm[Hg] 102 mm[Hg] [facility] Systolic blood 156 mm[Hg] 156 mm[Hg] [facility] Oxygen 96 % 96 % [facility] saturation in Medical Arterial blood Center by Pulse oximetry Body temperature 37.730054 Kaylie 37.319836 [facility] Respiratory rate 19 /min 19 /min [facility] Heart rate 107 /min 107 /min [facility] Diastolic blood 90 mm[Hg] 90 mm[Hg] [facility] Systolic blood 154 mm[Hg] 154 mm[Hg] [facility] Oxygen 96 % 96 % [facility] saturation in Medical Arterial blood Center by Pulse oximetry Body temperature 37.098010 Kaylie 37.984835 [facility] Respiratory rate 19 /min 19 /min [facility] Heart rate 104 /min 104 /min [facility] Diastolic blood 92 mm[Hg] 92 mm[Hg] [facility] pressure [facility] Center Systolic blood 148 mm[Hg] 148 mm[Hg] [facility] Oxygen 98 % 98 % [facility] saturation in Medical Arterial blood Center by Pulse oximetry Body temperature 36.350176 Kaylie 36.852330 [facility] Respiratory rate 17 /min 17 /min [facility] Heart rate 75 /min 75 /min [facility] Diastolic blood 78 mm[Hg] 78 mm[Hg] [facility] pressure Medical Center Systolic blood 125 mm[Hg] 125 mm[Hg] [facility] Oxygen 97 % 97 % [facility] saturation in Medical Arterial blood Center by Pulse oximetry Oxygen 98 % 98 % [facility] saturation in Medical Arterial blood Center by Pulse oximetry Body temperature 36.076555 Kaylie 36.318490 [facility] Respiratory rate 17 /min 17 /min [facility] Oxygen 97 % 97 % [facility] saturation in Medical Arterial blood Center by Pulse oximetry Heart rate 75 /min 75 /min [facility] Diastolic blood 81 mm[Hg] 81 mm[Hg] [facility] pressure [facility] Center Systolic blood 139 mm[Hg] 139 mm[Hg] [facility] [place] Body temperature 36.486214 Kaylie 36.660278 [facility] Respiratory rate 17 /min 17 /min [facility] Oxygen 95 % 95 % [facility] saturation in Medical Arterial blood Center by Pulse oximetry Heart rate 70 /min 70 /min [facility] Diastolic blood 71 mm[Hg] 71 mm[Hg] [facility] pressure [facility] Center Systolic blood 127 mm[Hg] 127 mm[Hg] [facility] [place] Body temperature 36.355815 Kaylie 36.388978 [facility] Respiratory rate 18 /min 18 /min [facility] Oxygen 97 % 97 % [facility] saturation in Medical Arterial blood Center by Pulse oximetry Heart rate 73 /min 73 /min [facility] Diastolic blood 66 mm[Hg] 66 mm[Hg] [facility] pressure [facility] Center Systolic blood 139 mm[Hg] 139 mm[Hg] [facility] Respiratory rate 16 /min 16 /min [facility] Oxygen 963 % 963 % [facility] saturation in Medical Arterial blood Center by Pulse oximetry Heart rate 80 /min 80 /min [facility] Diastolic blood 80 mm[Hg] 80 mm[Hg] [facility] Systolic blood 154 mm[Hg] 154 mm[Hg] [facility] Body temperature 36.953640 Kaylie 36.029224 [facility] Respiratory rate 19 /min 19 /min [facility] Oxygen 99 % 99 % [facility] saturation in Medical Arterial blood Center by Pulse oximetry Heart rate 81 /min 81 /min [facility] Diastolic blood 76 mm[Hg] 76 mm[Hg] [facility] Systolic blood 133 mm[Hg] 133 mm[Hg] [facility] [place] Body temperature 36.430757 Kaylie 36.376246 [facility] Respiratory rate 16 /min 16 /min [facility] Oxygen 95 % 95 % [facility] saturation in Medical Arterial blood Center by Pulse oximetry Heart rate 73 /min 73 /min [facility] Diastolic blood 74 mm[Hg] 74 mm[Hg] [facility] Systolic blood 138 mm[Hg] 138 mm[Hg] [facility] Body temperature 36.071250 Kaylie 36.240843 [facility] Respiratory rate 18 /min 18 /min [facility] Oxygen 98 % 98 % [facility] saturation in Medical Arterial blood Center by Pulse oximetry Heart rate 76 /min 76 /min [facility] Diastolic blood 78 mm[Hg] 78 mm[Hg] [facility] Systolic blood 121 mm[Hg] 121 mm[Hg] [facility] Body temperature 36.295481 Kaylie 36.041714 [facility] Respiratory rate 17 /min 17 /min [facility] Oxygen 97 % 97 % [facility] saturation in Medical Arterial blood Center by Pulse oximetry Heart rate 84 /min 84 /min [facility] Diastolic blood 74 mm[Hg] 74 mm[Hg] [facility] Systolic blood 128 mm[Hg] 128 mm[Hg] [facility] Body temperature 36.329816 Kaylie 36.134225 [facility] Respiratory rate 18 /min 18 /min [facility] Oxygen 97 % 97 % [facility] saturation in Medical Arterial blood Center by Pulse oximetry Heart rate 88 /min 88 /min [facility] Diastolic blood 102 mm[Hg] 102 mm[Hg] [facility] pressure [facility] Center Systolic blood 164 mm[Hg] 164 mm[Hg] [facility] Body temperature 36.838504 Kaylie 36.789838 [facility] Respiratory rate 18 /min 18 /min [facility] Oxygen 98 % 98 % [facility] saturation in Medical Arterial blood Center by Pulse oximetry Heart rate 77 /min 77 /min [facility] Diastolic blood 75 mm[Hg] 75 mm[Hg] [facility] [place] Systolic blood 136 mm[Hg] 136 mm[Hg] [facility] Body temperature 36.423952 Kaylie 36.461903 [facility] Respiratory rate 18 /min 18 /min [facility] Oxygen 98 % 98 % [facility] saturation in Medical Arterial blood Center by Pulse oximetry Heart rate 84 /min 84 /min [facility] Diastolic blood 79 mm[Hg] 79 mm[Hg] [facility] Systolic blood 142 mm[Hg] 142 mm[Hg] [facility] Body temperature 36.990147 Kaylie 36.841218 [facility] Respiratory rate 19 /min 19 /min [facility] Oxygen 99 % 99 % [facility] saturation in Medical Arterial blood Center by Pulse oximetry Heart rate 89 /min 89 /min [facility] Diastolic blood 87 mm[Hg] 87 mm[Hg] [facility] Systolic blood 155 mm[Hg] 155 mm[Hg] [facility] Body temperature 36.385386 Kaylie 36.937155 [facility] Respiratory rate 18 /min 18 /min [facility] Oxygen 99 % 99 % [facility] saturation in Medical Arterial blood Center by Pulse oximetry Heart rate 100 /min 100 /min [facility] Diastolic blood 98 mm[Hg] 98 mm[Hg] [facility] Systolic blood 145 mm[Hg] 145 mm[Hg] [facility] Body temperature 37.193912 Kaylie 37.054623 [facility] Respiratory rate 20 /min 20 /min [facility] Oxygen 95 % 95 % [facility] saturation in Medical Arterial blood Center by Pulse oximetry Heart rate 88 /min 88 /min [facility] Diastolic blood 77 mm[Hg] 77 mm[Hg] [facility] pressure [facility] Center Systolic blood 135 mm[Hg] 135 mm[Hg] [facility] Body weight 79.834385 kg 79.286742 kg [facility] Body temperature 36.265096 Kaylie 36.210579 [facility] Respiratory rate 18 /min 18 /min [facility] Oxygen 99 % 99 % [facility] saturation in Medical Arterial blood Center by Pulse oximetry Heart rate 78 /min 78 /min [facility] Body height 172.559337 cm 172.016001 cm [facility] Diastolic blood 70 mm[Hg] 70 mm[Hg] [facility] Systolic blood 130 mm[Hg] 130 mm[Hg] [facility] Body mass index 26.6 kg/m2 26.6 kg/m2 [facility] (BMI) [Ratio] Medical Center Body temperature 37.433751 Kaylie 37.931204 [facility] Respiratory rate 18 /min 18 /min [facility] Oxygen 98 % 98 % [facility] saturation in Medical Arterial blood Center by Pulse oximetry Heart rate 103 /min 103 /min [facility] Diastolic blood 88 mm[Hg] 88 mm[Hg] [facility] pressure [facility] Center Systolic blood 142 mm[Hg] 142 mm[Hg] [facility] Body temperature 36.603365 Kaylie 36.140994 [facility] Respiratory rate 18 /min 18 /min [facility] Oxygen 97 % 97 % [facility] saturation in Medical Arterial blood Center by Pulse oximetry Heart rate 77 /min 77 /min [facility] Diastolic blood 66 mm[Hg] 66 mm[Hg] [facility] pressure [facility] Center Systolic blood 140 mm[Hg] 140 mm[Hg] [facility] Body temperature 36.624542 Kaylie 36.956072 [facility] Respiratory rate 18 /min 18 /min [facility] Oxygen 96 % 96 % [facility] saturation in Medical Arterial blood Center by Pulse oximetry Heart rate 88 /min 88 /min [facility] Diastolic blood 75 mm[Hg] 75 mm[Hg] [facility] pressure [facility] Center Systolic blood 119 mm[Hg] 119 mm[Hg] [facility] Body temperature 36.951716 Kaylie 36.123241 [facility] Respiratory rate 19 /min 19 /min [facility] Oxygen 97 % 97 % [facility] saturation in Medical Arterial blood Center by Pulse oximetry Heart rate 101 /min 101 /min [facility] Diastolic blood 67 mm[Hg] 67 mm[Hg] [facility] pressure [facility] Center Systolic blood 108 mm[Hg] 108 mm[Hg] [facility] Body temperature 36.493142 Kaylie 36.224965 [facility] Respiratory rate 17 /min 17 /min [facility] Oxygen 94 % 94 % [facility] saturation in Medical Arterial blood Center by Pulse oximetry Heart rate 87 /min 87 /min [facility] Diastolic blood 81 mm[Hg] 81 mm[Hg] [facility] pressure [facility] Center Systolic blood 120 mm[Hg] 120 mm[Hg] [facility] [place] Body temperature 36.129739 Kaylie 36.027709 [facility] Respiratory rate 17 /min 17 /min [facility] Oxygen 97 % 97 % [facility] saturation in Medical Arterial blood Center by Pulse oximetry Heart rate 70 /min 70 /min [facility] Diastolic blood 66 mm[Hg] 66 mm[Hg] [facility] pressure [facility] Center Systolic blood 139 mm[Hg] 139 mm[Hg] [facility] Body temperature 36.534729 Kaylie 36.710829 [facility] Respiratory rate 17 /min 17 /min [facility] Oxygen 95 % 95 % [facility] saturation in Medical Arterial blood Center by Pulse oximetry Heart rate 69 /min 69 /min [facility] Diastolic blood 76 mm[Hg] 76 mm[Hg] [facility] pressure [facility] Center Systolic blood 122 mm[Hg] 122 mm[Hg] [facility] pressure Medical Center Body temperature 36.748398 Kaylie 36.490968 [facility] Respiratory rate 17 /min 17 /min [facility] Oxygen 98 % 98 % [facility] saturation in Medical Arterial blood Center by Pulse oximetry Heart rate 73 /min 73 /min [facility] Diastolic blood 69 mm[Hg] 69 mm[Hg] [facility] pressure [facility] Center Systolic blood 133 mm[Hg] 133 mm[Hg] [facility] pressure Medical [place] Diastolic blood 84 mmHg 84 mmHg [facility] Systolic blood 150 mmHg 150 mmHg [facility] Respiratory rate 18 bpm 18 bpm [facility] Heart rate 86 bpm 86 bpm [facility] Body temperature 97.8 Fahrenheit 97.8 Fahrenh t [facility] Diastolic blood 79 mmHg 79 mmHg [facility] Systolic blood 135 mmHg 135 mmHg [facility] Respiratory rate 18 bpm 18 bpm [facility] Heart rate 92 bpm 92 bpm [facility] Body temperature 97.5 Fahrenheit 97.5 Fahrenh t [facility] Diastolic blood 77 mmHg 77 mmHg [facility] Systolic blood 124 mmHg 124 mmHg [facility] Respiratory rate 18 bpm 18 bpm [facility] Heart rate 90 bpm 90 bpm [facility] Body temperature 98.0 Fahrenheit 98.0 Fahrenh t [facility] Diastolic blood 89 mmHg 89 mmHg [facility] Systolic blood 149 mmHg 149 mmHg [facility] Respiratory rate 18 bpm 18 bpm [facility] Heart rate 105 bpm 105 bpm [facility] Body temperature 98.2 Fahrenheit 98.2 Fahrenhei t [facility] Body temperature 97.3 Fahrenheit 97.3 Fahrenhei t [facility] Body weight 233 lbs 233 lbs [facility] Diastolic blood 87 mmHg 87 mmHg [facility] Systolic blood 140 mmHg 140 mmHg [facility] Respiratory rate 18 bpm 18 bpm [facility] Heart rate 103 bpm 103 bpm [facility] Body temperature 98.1 Fahrenheit 98.1 Fahrenh t [facility] Body temperature 97.4 Fahrenheit 97.4 Fahrenhei t [facility] Body temperature 36.480485 Kaylie 36.173612 [facility] Respiratory rate 17 /min 17 /min [facility] Oxygen 95 % 95 % [facility] saturation in Medical Arterial blood Center by Pulse oximetry Heart rate 79 /min 79 /min [facility] Diastolic blood 71 mm[Hg] 71 mm[Hg] [facility] pressure [facility] Systolic blood 122 mm[Hg] 122 mm[Hg] [facility] [place] Body temperature 36.022539 Kaylie 36.232228 [facility] Respiratory rate 17 /min 17 /min [facility] Oxygen 98 % 98 % [facility] saturation in Medical Arterial blood Center by Pulse oximetry Heart rate 79 /min 79 /min [facility] Diastolic blood 69 mm[Hg] 69 mm[Hg] [facility] Systolic blood 133 mm[Hg] 133 mm[Hg] [facility] [place] Body temperature 37.681473 Kaylie 37.098153 [facility] Respiratory rate 16 /min 16 /min [facility] Oxygen 97 % 97 % [facility] saturation in Medical Arterial blood Center by Pulse oximetry Heart rate 96 /min 96 /min [facility] Diastolic blood 91 mm[Hg] 91 mm[Hg] [facility] pressure [facility] Systolic blood 154 mm[Hg] 154 mm[Hg] [facility] [place] Body temperature 37.608797 Kaylie 37.128082 [facility] Respiratory rate 18 /min 18 /min [facility] Heart rate 102 /min 102 /min [facility] Diastolic blood 107 mm[Hg] 107 mm[Hg] [facility] pressure [facility] Center Systolic blood 162 mm[Hg] 162 mm[Hg] [facility] [place] Body temperature 36.650713 Kaylie 36.021234 [facility] Respiratory rate 18 /min 18 /min [facility] Oxygen 97 % 97 % [place] saturation in Medical Arterial blood Center by Pulse oximetry Heart rate 101 /min 101 /min [facility] Diastolic blood 95 mm[Hg] 95 mm[Hg] [facility] pressure [facility] Center Systolic blood 159 mm[Hg] 159 mm[Hg] [facility] Body temperature 36.598409 Kaylie 36.673662 [facility] Respiratory rate 18 /min 18 /min [facility] Oxygen 96 % 96 % [facility] saturation in Medical Arterial blood Center by Pulse oximetry Heart rate 93 /min 93 /min [facility] Diastolic blood 61 mm[Hg] 61 mm[Hg] [facility] pressure [facility] Center Systolic blood 111 mm[Hg] 111 mm[Hg] [facility] Body temperature 36.565321 Kaylie 36.934364 [facility] Respiratory rate 16 /min 16 /min [facility] Oxygen 98 % 98 % [facility] saturation in Medical Arterial blood Center by Pulse oximetry Heart rate 78 /min 78 /min [facility] Diastolic blood 73 mm[Hg] 73 mm[Hg] [facility] pressure [facility] Center Systolic blood 124 mm[Hg] 124 mm[Hg] [facility] Body temperature 36.101922 Kaylie 36.302814 [facility] Respiratory rate 16 /min 16 /min [facility] Oxygen 96 % 96 % [facility] saturation in Medical Arterial blood Center by Pulse oximetry Heart rate 94 /min 94 /min [facility] Diastolic blood 71 mm[Hg] 71 mm[Hg] [facility] pressure [facility] Center Systolic blood 131 mm[Hg] 131 mm[Hg] [facility] [place] Body temperature 36.857028 Kaylie 36.193200 [facility] Respiratory rate 15 /min 15 /min [facility] Oxygen 98 % 98 % [facility] saturation in Medical Arterial blood Center by Pulse oximetry Heart rate 100 /min 100 /min [facility] Diastolic blood 73 mm[Hg] 73 mm[Hg] [facility] Systolic blood 129 mm[Hg] 129 mm[Hg] [facility] [place] Body weight 77.116272 kg 77.764124 kg [facility] [place] Body temperature 36.531204 Kaylie 36.749232 [facility] Respiratory rate 18 /min 18 /min [facility] Oxygen 96 % 96 % [facility] saturation in Medical Arterial blood Center by Pulse oximetry Heart rate 99 /min 99 /min [facility] Body height 167.819459 cm 167.801756 cm [facility] Diastolic blood 74 mm[Hg] 74 mm[Hg] [facility] Systolic blood 128 mm[Hg] 128 mm[Hg] [facility] Body mass index 27.4 kg/m2 27.4 kg/m2 [facility] (BMI) [Ratio] Medical Center Body temperature 36.551353 Kaylie 36.910841 [facility] Respiratory rate 17 /min 17 /min [facility] Oxygen 99 % 99 % [facility] saturation in Medical Arterial blood Center by Pulse oximetry Heart rate 81 /min 81 /min [facility] Diastolic blood 69 mm[Hg] 69 mm[Hg] [facility] Systolic blood 118 mm[Hg] 118 mm[Hg] [facility] Body weight 113.298765 kg 113.043156 kg [facility] Body temperature 37.035167 Kaylie 37.341754 [facility] Respiratory rate 19 /min 19 /min [facility] Oxygen 94 % 94 % [facility] saturation in Medical Arterial blood Center by Pulse oximetry Heart rate 102 /min 102 /min [facility] Body height 172.369196 cm 172.187145 cm [facility] Diastolic blood 78 mm[Hg] 78 mm[Hg] [facility] pressure [facility] Center Systolic blood 138 mm[Hg] 138 mm[Hg] [facility] Body mass index 38.0 kg/m2 38.0 kg/m2 [facility] (BMI) [Ratio] Medical Center Body temperature 36.152806 Kaylie 36.339124 [facility] Respiratory rate 18 /min 18 /min [facility] Oxygen 98 % 98 % [facility] saturation in Medical Arterial blood Center by Pulse oximetry Heart rate 104 /min 104 /min [facility] Diastolic blood 50 mm[Hg] 50 mm[Hg] [facility] Systolic blood 91 mm[Hg] 91 mm[Hg] [facility] Body temperature 36.619342 Kaylie 36.599894 [facility] Respiratory rate 18 /min 18 /min [facility] Oxygen 91 % 91 % [facility] saturation in Medical Arterial blood Center by Pulse oximetry Heart rate 97 /min 97 /min [facility] Diastolic blood 75 mm[Hg] 75 mm[Hg] [facility] Systolic blood 126 mm[Hg] 126 mm[Hg] [facility] Body temperature 36.929921 Kaylie 36.085580 [facility] Respiratory rate 18 /min 18 /min [facility] Oxygen 100 % 100 % [place] saturation in [facility] by Pulse oximetry Heart rate 95 /min 95 /min [facility] Diastolic blood 57 mm[Hg] 57 mm[Hg] [facility] Systolic blood 106 mm[Hg] 106 mm[Hg] [facility] Body weight 83.826007 kg 83.495487 kg [facility] [place] Body temperature 36.665749 Kaylie 36.304271 [facility] Respiratory rate 19 /min 19 /min [facility] Oxygen 97 % 97 % [facility] [place] saturation in [facility] Ar[facility] blood Center by Pulse oximetry Heart rate 95 /min 95 /min [facility] Body height 175.480030 cm 175.397319 cm [facility] Diastolic blood 58 mm[Hg] 58 mm[Hg] [facility] Systolic blood 107 mm[Hg] 107 mm[Hg] [facility] Body mass index 27.3 kg/m2 27.3 kg/m2 [facility] (BMI) [Ratio] [facility] Body temperature 36.107209 Kaylie 36.574669 [facility] Respiratory rate 16 /min 16 /min [facility] Oxygen 98 % 98 % [facility] [place] saturation in [facility] Ar[facility] blood Center by Pulse oximetry Heart rate 84 /min 84 /min [facility] Diastolic blood 74 mm[Hg] 74 mm[Hg] [facility] pressure [facility] Center Systolic blood 141 mm[Hg] 141 mm[Hg] [facility] Body temperature 37.939670 Kaylie 37.709629 [facility] Respiratory rate 18 /min 18 /min [facility] Oxygen 96 % 96 % [facility] [place] saturation in [facility] Ar[facility] blood Center by Pulse oximetry Heart rate 90 /min 90 /min [facility] Diastolic blood 60 mm[Hg] 60 mm[Hg] [facility] [place] Systolic blood 103 mm[Hg] 103 mm[Hg] [facility] Body temperature 37.682578 Kaylie 37.665680 [facility] Respiratory rate 17 /min 17 /min [facility] Oxygen 99 % 99 % [facility] [place] saturation in Medical Arterial blood Center by Pulse oximetry Heart rate 88 /min 88 /min [facility] Diastolic blood 86 mm[Hg] 86 mm[Hg] [facility] Systolic blood 138 mm[Hg] 138 mm[Hg] [facility] [place] Body temperature 36.032845 Kaylie 36.068427 [facility] Respiratory rate 16 /min 16 /min [facility] Oxygen 98 % 98 % [facility] [place] saturation in Medical Arterial blood Center by Pulse oximetry Heart rate 78 /min 78 /min [facility] Diastolic blood 91 mm[Hg] 91 mm[Hg] [facility] [place] Systolic blood 145 mm[Hg] 145 mm[Hg] [facility] Body temperature 36.795793 Kaylie 36.360156 [facility] Respiratory rate 16 /min 16 /min [facility] Oxygen 98 % 98 % [facility] [place] saturation in Medical Arter[facility] blood Center by Pulse oximetry Heart rate 75 /min 75 /min [facility] Diastolic blood 84 mm[Hg] 84 mm[Hg] [facility] [place] Systolic blood 151 mm[Hg] 151 mm[Hg] [facility] Body temperature 36.619065 Kaylie 36.746567 [facility] Respiratory rate 16 /min 16 /min [facility] Oxygen 98 % 98 % [facility] [place] saturation in Medical Arter[facility] blood Center by Pulse oximetry Heart rate 74 /min 74 /min [facility] Diastolic blood 87 mm[Hg] 87 mm[Hg] [facility] Systolic blood 148 mm[Hg] 148 mm[Hg] [facility] Body temperature 36.217926 Kaylie 36.253441 [facility] Respiratory rate 16 /min 16 /min [facility] Oxygen 96 % 96 % [facility] [place] saturation in Medical Arterial blood Center by Pulse oximetry Heart rate 79 /min 79 /min [facility] Diastolic blood 88 mm[Hg] 88 mm[Hg] [facility] pressure [facility] Center Systolic blood 151 mm[Hg] 151 mm[Hg] [facility] Body temperature 37.152918 Kaylie 37.045202 [facility] Respiratory rate 16 /min 16 /min [facility] Oxygen 98 % 98 % [facility] [place] saturation in Medical Arterial blood Center by Pulse oximetry Heart rate 86 /min 86 /min [facility] Diastolic blood 94 mm[Hg] 94 mm[Hg] [facility] Systolic blood 145 mm[Hg] 145 mm[Hg] [facility] Body temperature 36.716041 Kaylie 36.728358 [facility] Respiratory rate 19 /min 19 /min [facility] Oxygen 97 % 97 % [place] saturation in [facility] Ar[facility] blood Center by Pulse oximetry Heart rate 92 /min 92 /min [facility] Diastolic blood 88 mm[Hg] 88 mm[Hg] [facility] Systolic blood 148 mm[Hg] 148 mm[Hg] [facility] [place] Body temperature 36.326259 Kaylie 36.143090 [facility] Respiratory rate 17 /min 17 /min [facility] Oxygen 97 % 97 % [facility] [place] saturation in [facility] Ar[facility] blood Center by Pulse oximetry Heart rate 71 /min 71 /min [facility] Diastolic blood 87 mm[Hg] 87 mm[Hg] [facility] Systolic blood 139 mm[Hg] 139 mm[Hg] [facility] Body temperature 36.116105 Kaylie 36.137017 [facility] Respiratory rate 18 /min 18 /min [facility] Oxygen 97 % 97 % [place] saturation in Medical Arter[facility] blood Center by Pulse oximetry Heart rate 84 /min 84 /min [facility] Diastolic blood 77 mm[Hg] 77 mm[Hg] [facility] pressure [facility] Center Systolic blood 132 mm[Hg] 132 mm[Hg] [facility] Diastolic blood 68 mm[Hg] 68 mm[Hg] [facility] pressure [facility] Center Systolic blood 119 mm[Hg] 119 mm[Hg] [facility] Body temperature 36.042697 Kaylie 36.872999 [facility] Respiratory rate 17 /min 17 /min [facility] Oxygen 98 % 98 % [facility] [place] saturation in [facility] Ar[facility] blood Center by Pulse oximetry Heart rate 88 /min 88 /min [facility] Body temperature 36.358586 Kaylie 36.400726 [facility] Respiratory rate 17 /min 17 /min [facility] Oxygen 97 % 97 % [facility] [place] saturation in Medical Ar[facility] blood Center by Pulse oximetry Heart rate 81 /min 81 /min [facility] Diastolic blood 72 mm[Hg] 72 mm[Hg] [facility] Systolic blood 131 mm[Hg] 131 mm[Hg] [facility] Body weight 90.470145 kg 90.422491 kg [facility] Measured [facility] [place] Body temperature 36.307819 Kaylie 36.915933 [facility] Respiratory rate 16 /min 16 /min [facility] Oxygen 9 % 9 % [facility] [place] saturation in Medical Arter[facility] blood Center by Pulse oximetry Heart rate 80 /min 80 /min [facility] Body height 177.852490 cm 177.405619 cm [facility] Diastolic blood 95 mm[Hg] 95 mm[Hg] [facility] pressure [facility] Center Systolic blood 152 mm[Hg] 152 mm[Hg] [facility] Body mass index 28.6 kg/m2 28.6 kg/m2 [facility] (BMI) [Ratio] [facility] Body temperature 36.489106 Kaylie 36.918423 [facility] Respiratory rate 18 /min 18 /min [facility] Oxygen 100 % 100 % [facility] [place] saturation in Medical Arter[facility] blood Center by Pulse oximetry Heart rate 81 /min 81 /min [facility] Diastolic blood 70 mm[Hg] 70 mm[Hg] [facility] pressure [facility] Center Systolic blood 119 mm[Hg] 119 mm[Hg] [facility] Body temperature 36.737033 Kaylie 36.250393 [facility] Respiratory rate 18 /min 18 /min [facility] Oxygen 97 % 97 % [place] saturation in Medical Arter[facility] blood Center by Pulse oximetry Heart rate 86 /min 86 /min [facility] Diastolic blood 76 mm[Hg] 76 mm[Hg] [facility] Systolic blood 119 mm[Hg] 119 mm[Hg] [facility] Body temperature 36.304741 Kaylie 36.155586 [facility] Respiratory rate 18 /min 18 /min [facility] Oxygen 97 % 97 % [facility] [place] saturation in Medical Arterial blood Center by Pulse oximetry Heart rate 94 /min 94 /min [facility] Diastolic blood 87 mm[Hg] 87 mm[Hg] [facility] pressure [facility] Center Systolic blood 140 mm[Hg] 140 mm[Hg] [facility] Body temperature 36.977197 Kaylie 36.128942 [facility] Respiratory rate 19 /min 19 /min [facility] Oxygen 100 % 100 % [facility] [place] saturation in Medical Arterial blood Center by Pulse oximetry Heart rate 83 /min 83 /min [facility] Diastolic blood 71 mm[Hg] 71 mm[Hg] [facility] pressure [facility] Center Systolic blood 126 mm[Hg] 126 mm[Hg] [facility] Body temperature 36.304546 Kaylie 36.589239 [facility] Respiratory rate 18 /min 18 /min [facility] Oxygen 99 % 99 % [facility] [place] saturation in Medical Arterial blood Center by Pulse oximetry Heart rate 79 /min 79 /min [facility] Diastolic blood 77 mm[Hg] 77 mm[Hg] [facility] Systolic blood 126 mm[Hg] 126 mm[Hg] [facility] Body weight 125.301160 kg 125.343680 kg [facility] Body temperature 36.217243 Kaylie 36.731150 [facility] Respiratory rate 18 /min 18 /min [facility] Oxygen 98 % 98 % [facility] [place] saturation in Medical Arter[facility] blood Center by Pulse oximetry Heart rate 98 /min 98 /min [facility] Body height 177.773099 cm 177.823455 cm [facility] Diastolic blood 78 mm[Hg] 78 mm[Hg] [facility] Systolic blood 110 mm[Hg] 110 mm[Hg] [facility] Body mass index 39.5 kg/m2 39.5 kg/m2 [facility] (BMI) [Ratio] [facility] Body temperature 36.768874 Kaylie 36.075040 [facility] Respiratory rate 17 /min 17 /min [facility] Oxygen 96 % 96 % [facility] [place] saturation in Medical Arterial blood Center by Pulse oximetry Heart rate 88 /min 88 /min [facility] Diastolic blood 75 mm[Hg] 75 mm[Hg] [facility] Systolic blood 104 mm[Hg] 104 mm[Hg] [facility] Body weight 110.314856 kg 110.0467[address] [facility] Body temperature 36.336210 Kaylie 36.919024 [facility] Respiratory rate 18 /min 18 /min [facility] Oxygen 98 % 98 % [facility] [place] saturation in Medical Arterial blood Center by Pulse oximetry Heart rate 78 /min 78 /min [facility] Body height 187.439564 cm 187.944646 cm [facility] Diastolic blood 78 mm[Hg] 78 mm[Hg] [facility] Systolic blood 148 mm[Hg] 148 mm[Hg] [facility] Body mass index 31.1 kg/m2 31.1 kg/m2 [facility] (BMI) [Ratio] [facility] Body temperature 36.991738 Kaylie 36.546113 [facility] Respiratory rate 17 /min 17 /min [facility] Oxygen 98 % 98 % [facility] [place] saturation in Medical Arterial blood Center by Pulse oximetry Heart rate 75 /min 75 /min [facility] Diastolic blood 68 mm[Hg] 68 mm[Hg] [facility] Systolic blood 129 mm[Hg] 129 mm[Hg] [facility] [place] Oxygen 98 % 98 % [facility] [place] saturation in Medical Arterial blood Center by Pulse oximetry Heart rate 75 /min 75 /min [facility] Diastolic blood 68 mm[Hg] 68 mm[Hg] [facility] [place] Systolic blood 133 mm[Hg] 133 mm[Hg] [facility] Body temperature 36.327917 Kaylie 36.853149 [facility] Respiratory rate 17 /min 17 /min [facility] Body temperature 36.112143 Kaylie 36.970940 [facility] Respiratory rate 17 /min 17 /min [facility] Oxygen 98 % 98 % [place] saturation in Medical Arterial blood Center by Pulse oximetry Heart rate 82 /min 82 /min [facility] Diastolic blood 87 mm[Hg] 87 mm[Hg] [facility] pressure [facility] Center Systolic blood 142 mm[Hg] 142 mm[Hg] [facility] Body temperature 36.991853 Kaylie 36.839572 [facility] Oxygen 97 % 97 % [place] saturation in Medical Arterial blood Center by Pulse oximetry Heart rate 87 /min 87 /min [facility] Diastolic blood 81 mm[Hg] 81 mm[Hg] [facility] pressure [facility] Center Systolic blood 150 mm[Hg] 150 mm[Hg] [facility] [place] Body temperature 37.155055 Kaylie 37.902826 [facility] Respiratory rate 19 /min 19 /min [facility] Oxygen 96 % 96 % [place] saturation in [facility] Arterial blood Center by Pulse oximetry Heart rate 89 /min 89 /min [facility] Diastolic blood 91 mm[Hg] 91 mm[Hg] [facility] Systolic blood 158 mm[Hg] 158 mm[Hg] [facility] Body weight 104.949449 kg 104.424028 kg [facility] Body temperature 37.828012 Kaylie 37.144162 [facility] Respiratory rate 17 /min 17 /min [facility] Oxygen 96 % 96 % [place] saturation in [facility] Arterial blood Center by Pulse oximetry Heart rate 92 /min 92 /min [facility] Body height 177.216752 cm 177.063887 cm [facility] Diastolic blood 101 mm[Hg] 101 mm[Hg] [facility] pressure [facility] Systolic blood 152 mm[Hg] 152 mm[Hg] [facility] Body mass index 33.0 kg/m2 33.0 kg/m2 [facility] (BMI) [Ratio] [facility] Body weight 110.038734 kg 110.480060 kg [facility] Body temperature 36.208956 Kaylie 36.688033 [facility] Respiratory rate 18 /min 18 /min [facility] Oxygen 98 % 98 % [facility] [place] saturation in Medical Arterial blood Center by Pulse oximetry Heart rate 78 /min 78 /min [facility] Body height 185.159825 cm 185.995126 cm [facility] Diastolic blood 78 mm[Hg] 78 mm[Hg] [facility] pressure [facility] Systolic blood 142 mm[Hg] 142 mm[Hg] [facility] Body mass index 31.9 kg/m2 31.9 kg/m2 [facility] (BMI) [Ratio] [facility] Body temperature 36.532168 Kaylie 36.188445 [facility] Respiratory rate 18 /min 18 /min [facility] Oxygen 95 % 95 % [place] saturation in Medical Ar[facility]ial blood Center by Pulse oximetry Heart rate 91 /min 91 /min [facility] Diastolic blood 74 mm[Hg] 74 mm[Hg] [facility] pressure [facility] Systolic blood 144 mm[Hg] 144 mm[Hg] [facility] Body temperature 37.856902 Kaylie 37.359111 [facility] Respiratory rate 20 /min 20 /min [facility] Oxygen 96 % 96 % [place] saturation in Medical Arterial blood Center by Pulse oximetry Heart rate 89 /min 89 /min [facility] Diastolic blood 79 mm[Hg] 79 mm[Hg] [facility] pressure [facility] Systolic blood 140 mm[Hg] 140 mm[Hg] [facility] Body weight 90.088096 kg 90.720464 kg [facility] Body temperature 36.057310 Kaylie 36.663855 [facility] Respiratory rate 18 /min 18 /min [facility] Oxygen 99 % 99 % [place] saturation in [facility] Ar[facility] blood Center by Pulse oximetry Heart rate 97 /min 97 /min [facility] Body height 177.792969 cm 177.516989 cm [facility] Diastolic blood 86 mm[Hg] 86 mm[Hg] [facility] pressure [facility] Center Systolic blood 157 mm[Hg] 157 mm[Hg] [facility] Body mass index 28.6 kg/m2 28.6 kg/m2 [facility] (BMI) [Ratio] [facility] Body temperature 36.894076 Kaylie 36.862538 [facility] Respiratory rate 19 /min 19 /min [facility] Oxygen 97 % 97 % [facility] [place] saturation in Medical Arter[facility] blood Center by Pulse oximetry Heart rate 78 /min 78 /min [facility] Diastolic blood 78 mm[Hg] 78 mm[Hg] [facility] pressure [facility] Systolic blood 132 mm[Hg] 132 mm[Hg] [facility] Body temperature 37.916386 Kaylie 37.861860 [facility] Respiratory rate 18 /min 18 /min [facility] Oxygen 96 % 96 % [place] saturation in Medical Arterial blood Center by Pulse oximetry Heart rate 92 /min 92 /min [facility] Diastolic blood 64 mm[Hg] 64 mm[Hg] [facility] [place] Systolic blood 117 mm[Hg] 117 mm[Hg] [facility] Body temperature 37.859531 Kaylie 37.611199 [facility] Respiratory rate 19 /min 19 /min [facility] Oxygen 98 % 98 % [facility] [place] saturation in Medical Arterial blood Center by Pulse oximetry Heart rate 96 /min 96 /min [facility] Diastolic blood 98 mm[Hg] 98 mm[Hg] [facility] Systolic blood 148 mm[Hg] 148 mm[Hg] [facility] Body temperature 36.957554 Kaylie 36.132405 [facility] Respiratory rate 18 /min 18 /min [facility] Oxygen 98 % 98 % [place] saturation in Medical Arterial blood Center by Pulse oximetry Heart rate 88 /min 88 /min [facility] Diastolic blood 78 mm[Hg] 78 mm[Hg] [facility] Systolic blood 134 mm[Hg] 134 mm[Hg] [facility] Body temperature 36.822916 Kaylie 36.060815 [facility] Respiratory rate 18 /min 18 /min [facility] Oxygen 90 % 90 % [facility] [place] saturation in Medical Arterial blood Center by Pulse oximetry Heart rate 76 /min 76 /min [facility] Diastolic blood 76 mm[Hg] 76 mm[Hg] [facility] Systolic blood 134 mm[Hg] 134 mm[Hg] [facility] Oxygen 95 % 95 % [place] saturation in Medical Arterial blood Center by Pulse oximetry Heart rate 74 /min 74 /min [facility] Diastolic blood 81 mm[Hg] 81 mm[Hg] [facility] pressure [facility] Center Systolic blood 127 mm[Hg] 127 mm[Hg] [facility] [place] Body temperature 36.983733 Kaylie 36.215280 [facility] Respiratory rate 16 /min 16 /min [facility] Body temperature 36.911692 Kaylie 36.513884 [facility] Oxygen 95 % 95 % [facility] [place] saturation in Medical Arter[facility] blood Center by Pulse oximetry Heart rate 79 /min 79 /min [facility] Diastolic blood 74 mm[Hg] 74 mm[Hg] [facility] Systolic blood 131 mm[Hg] 131 mm[Hg] [facility] Body temperature 37.970290 Kaylie 37.730922 [facility] Respiratory rate 16 /min 16 /min [facility] Oxygen 98 % 98 % [facility] [place] saturation in Medical Arterial blood Center by Pulse oximetry Heart rate 84 /min 84 /min [facility] Diastolic blood 74 mm[Hg] 74 mm[Hg] [facility] pressure [facility] Systolic blood 131 mm[Hg] 131 mm[Hg] [facility] Body temperature 37.852264 Kaylie 37.041968 [facility] Respiratory rate 17 /min 17 /min [facility] Oxygen 99 % 99 % [facility] [place] saturation in Medical Arterial blood Center by Pulse oximetry Heart rate 81 /min 81 /min [facility] Diastolic blood 78 mm[Hg] 78 mm[Hg] [facility] Systolic blood 127 mm[Hg] 127 mm[Hg] [facility] Body weight 104.908183 kg 104.785604 kg [facility] [place] Body temperature 36.048506 Kaylie 36.339348 [facility] Respiratory rate 17 /min 17 /min [facility] Oxygen 98 % 98 % [facility] [place] saturation in Medical Ar[facility]ial blood Center by Pulse oximetry Heart rate 101 /min 101 /min [facility] Body height 177.703540 cm 177.294160 cm [facility] Diastolic blood 94 mm[Hg] 94 mm[Hg] [facility] pressure [facility] Systolic blood 163 mm[Hg] 163 mm[Hg] [facility] Body mass index 33.0 kg/m2 33.0 kg/m2 [facility] (BMI) [Ratio] [facility] Body temperature 36.570240 Kaylie 36.544121 [facility] Respiratory rate 17 /min 17 /min [facility] Oxygen 98 % 98 % [place] saturation in [facility] Ar[facility] blood Center by Pulse oximetry Heart rate 72 /min 72 /min [facility] Diastolic blood 96 mm[Hg] 96 mm[Hg] [facility] pressure [facility] Systolic blood 139 mm[Hg] 139 mm[Hg] [facility] Body temperature 36.328762 Kaylie 36.906608 [facility] Respiratory rate 18 /min 18 /min [facility] Oxygen 97 % 97 % [facility] [place] saturation in Medical Arterial blood Center by Pulse oximetry Heart rate 66 /min 66 /min [facility] Diastolic blood 52 mm[Hg] 52 mm[Hg] [facility] pressure [facility] Center Systolic blood 100 mm[Hg] 100 mm[Hg] [facility] Body weight 77.246749 kg 77.643524 kg [facility] Body temperature 36.408011 Kaylie 36.439940 [facility] Respiratory rate 18 /min 18 /min [facility] Oxygen 97 % 97 % [place] saturation in Medical Arterial blood Center by Pulse oximetry Heart rate 82 /min 82 /min [facility] Body height 167.743829 cm 167.840149 cm [facility] Diastolic blood 80 mm[Hg] 80 mm[Hg] [facility] pressure [facility] Systolic blood 130 mm[Hg] 130 mm[Hg] [facility] Body mass index 27.4 kg/m2 27.4 kg/m2 [facility] (BMI) [Ratio] [facility] Body temperature 36.176785 Kaylie 36.370730 [facility] Respiratory rate 17 /min 17 /min [facility] Oxygen 99 % 99 % [place] saturation in [facility] Ar[facility]ial blood Center by Pulse oximetry Heart rate 88 /min 88 /min [facility] Diastolic blood 77 mm[Hg] 77 mm[Hg] [facility] pressure [facility] Systolic blood 128 mm[Hg] 128 mm[Hg] [facility] Body temperature 37.267600 Kaylie 37.613160 [facility] Respiratory rate 18 /min 18 /min [facility] Oxygen 96 % 96 % [facility] [place] saturation in Medical Arterial blood Center by Pulse oximetry Heart rate 94 /min 94 /min [facility] Diastolic blood 80 mm[Hg] 80 mm[Hg] [facility] Systolic blood 122 mm[Hg] 122 mm[Hg] [facility] [place] Body temperature 36.146996 Kaylie 36.323783 [facility] Respiratory rate 20 /min 20 /min [facility] Oxygen 94 % 94 % [facility] [place] saturation in Medical Arterial blood Center by Pulse oximetry Heart rate 93 /min 93 /min [facility] Diastolic blood 61 mm[Hg] 61 mm[Hg] [facility] Systolic blood 122 mm[Hg] 122 mm[Hg] [facility] Body temperature 36.678925 Kaylie 36.234111 [facility] Respiratory rate 17 /min 17 /min [facility] Oxygen 97 % 97 % [facility] [place] saturation in Medical Arterial blood Center by Pulse oximetry Heart rate 81 /min 81 /min [facility] [facility] Diastolic blood 82 mm[Hg] 82 mm[Hg] [facility] Systolic blood 142 mm[Hg] 142 mm[Hg] [facility] Body temperature 36.043281 Kaylie 36.938627 [facility] Respiratory rate 18 /min 18 /min [facility] Oxygen 98 % 98 % [facility] saturation in Medical Arterial blood Center by Pulse oximetry Heart rate 86 /min 86 /min [facility] Diastolic blood 78 mm[Hg] 78 mm[Hg] [facility] Systolic blood 122 mm[Hg] 122 mm[Hg] [facility] [place] Body temperature 36.408403 Kaylie 36.852105 [facility] Respiratory rate 17 /min 17 /min [facility] Oxygen 96 % 96 % [facility] saturation in Medical Arterial blood Center by Pulse oximetry Heart rate 83 /min 83 /min [facility] Diastolic blood 71 mm[Hg] 71 mm[Hg] [facility] pressure [facility] Center Systolic blood 125 mm[Hg] 125 mm[Hg] [facility] Body temperature 37.052734 Kaylie 37.861577 [facility] Respiratory rate 16 /min 16 /min [facility] Oxygen 94 % 94 % [facility] saturation in Medical Arterial blood Center by Pulse oximetry Heart rate 92 /min 92 /min [facility] Diastolic blood 72 mm[Hg] 72 mm[Hg] [facility] Center Systolic blood 142 mm[Hg] 142 mm[Hg] [facility] Body weight 90.216389 kg 90.575327 kg [facility] Body temperature 37.013497 Kaylie 37.258378 [facility] Respiratory rate 18 /min 18 /min [facility] Oxygen 92 % 92 % [place] saturation in Medical Arterial blood Center by Pulse oximetry Heart rate 96 /min 96 /min [facility] Body height 177.827023 cm 177.916872 cm [facility] Diastolic blood 70 mm[Hg] 70 mm[Hg] [facility] Center Systolic blood 122 mm[Hg] 122 mm[Hg] [facility] Body mass index 28.6 kg/m2 28.6 kg/m2 [facility] (BMI) [Ratio] [facility] Body temperature 36.740432 Kaylie 36.636700 [facility] Respiratory rate 17 /min 17 /min [facility] Oxygen 98 % 98 % [facility] saturation in Medical Arterial blood Center by Pulse oximetry Heart rate 75 /min 75 /min [facility] Diastolic blood 65 mm[Hg] 65 mm[Hg] [facility] Center Systolic blood 133 mm[Hg] 133 mm[Hg] [facility] Body temperature 36.405207 Kaylie 36.541828 [facility] Respiratory rate 18 /min 18 /min [facility] Oxygen 98 % 98 % [facility] saturation in Medical Arterial blood Center by Pulse oximetry Heart rate 90 /min 90 /min [facility] Diastolic blood 72 mm[Hg] 72 mm[Hg] [facility] Center Systolic blood 127 mm[Hg] 127 mm[Hg] [facility] Body weight 75.530209 kg 75.973553 kg [facility] Body temperature 36.788092 Kaylie 36.799631 [facility] Respiratory rate 19 /min 19 /min [facility] Oxygen 98 % 98 % [facility] saturation in Medical Arterial blood Center by Pulse oximetry Heart rate 88 /min 88 /min [facility] Body height 170.782280 cm 170.066167 cm [facility] Diastolic blood 82 mm[Hg] 82 mm[Hg] [facility] pressure [facility] Center Systolic blood 140 mm[Hg] 140 mm[Hg] [facility] Body mass index 26.1 kg/m2 26.1 kg/m2 [facility] (BMI) [Ratio] [facility] Body temperature 35.766382 Kaylie 35.659594 [facility] Respiratory rate 19 /min 19 /min [facility] Oxygen 96 % 96 % [facility] saturation in Medical Arterial blood Center by Pulse oximetry Heart rate 89 /min 89 /min [facility] Diastolic blood 75 mm[Hg] 75 mm[Hg] [facility] pressure Medical Center Systolic blood 102 mm[Hg] 102 mm[Hg] [facility] Body temperature 36.042592 Kaylie 36.232628 [facility] Respiratory rate 18 /min 18 /min [facility] Oxygen 98 % 98 % [facility] saturation in Medical Arterial blood Center by Pulse oximetry Heart rate 76 /min 76 /min [facility] Diastolic blood 76 mm[Hg] 76 mm[Hg] [facility] pressure [facility] Center Systolic blood 112 mm[Hg] 112 mm[Hg] [facility] Body temperature 36.591612 Kaylie 36.857724 [facility] Respiratory rate 18 /min 18 /min [facility] Oxygen 98 % 98 % [facility] saturation in Medical Arterial blood Center by Pulse oximetry Heart rate 76 /min 76 /min [facility] Diastolic blood 76 mm[Hg] 76 mm[Hg] [facility] Systolic blood 112 mm[Hg] 112 mm[Hg] [facility] Body temperature 37.461550 Kaylie 37.755273 [facility] Respiratory rate 18 /min 18 /min [facility] Oxygen 100 % 100 % [place] saturation in Medical Arterial blood Center by Pulse oximetry Heart rate 88 /min 88 /min [facility] Diastolic blood 78 mm[Hg] 78 mm[Hg] [facility] pressure [facility] Center Systolic blood 130 mm[Hg] 130 mm[Hg] [facility] Body temperature 36.415590 Kaylie 36.488714 [facility] Respiratory rate 17 /min 17 /min [facility] Oxygen 100 % 100 % [facility] saturation in Medical Arterial blood Center by Pulse oximetry Heart rate 81 /min 81 /min [facility] Diastolic blood 71 mm[Hg] 71 mm[Hg] [facility] Systolic blood 117 mm[Hg] 117 mm[Hg] [facility] Body weight 100.059797 kg 100.1297[address] [facility] Body temperature 36.424758 Kaylie 36.619856 [facility] Respiratory rate 18 /min 18 /min [facility] Oxygen 94 % 94 % [facility] saturation in Medical Arterial blood Center by Pulse oximetry Heart rate 97 /min 97 /min [facility] Body height 177.915176 cm 177.957534 cm [facility] Diastolic blood 72 mm[Hg] 72 mm[Hg] [facility] Systolic blood 118 mm[Hg] 118 mm[Hg] [facility] Body mass index 31.6 kg/m2 31.6 kg/m2 [facility] (BMI) [Ratio] [facility] Center Body temperature 36.315648 Kaylie 36.595826 [facility] Respiratory rate 17 /min 17 /min [facility] Oxygen 95 % 95 % [place] saturation in Medical Arterial blood Center by Pulse oximetry Heart rate 94 /min 94 /min [facility] Diastolic blood 89 mm[Hg] 89 mm[Hg] [facility] Systolic blood 146 mm[Hg] 146 mm[Hg] [facility] Body temperature 36.231480 Kaylie 36.240270 [facility] Respiratory rate 18 /min 18 /min [facility] Oxygen 97 % 97 % [facility] saturation in Medical Arterial blood Center by Pulse oximetry Heart rate 94 /min 94 /min [facility] Diastolic blood 85 mm[Hg] 85 mm[Hg] [facility] pressure [facility] Center Systolic blood 157 mm[Hg] 157 mm[Hg] [facility] Oxygen 98 % 98 % [facility] saturation in Medical Arterial blood Center by Pulse oximetry Heart rate 84 /min 84 /min [facility] Body height 175.192007 cm 175.232933 cm [facility] Diastolic blood 84 mm[Hg] 84 mm[Hg] [facility] Systolic blood 142 mm[Hg] 142 mm[Hg] [facility] Body mass index 25.6 kg/m2 25.6 kg/m2 [facility] (BMI) [Ratio] [facility] Center Body weight 78.711887 kg 78.318730 kg [facility] Body temperature 36.349973 Kaylie 36.741622 [facility] Respiratory rate 19 /min 19 /min [facility] Body temperature 36.693574 Kaylie 36.137081 [facility] Respiratory rate 18 /min 18 /min [facility] Oxygen 96 % 96 % [facility] saturation in Medical Arterial blood Center by Pulse oximetry Heart rate 95 /min 95 /min [facility] Diastolic blood 80 mm[Hg] 80 mm[Hg] [facility] Systolic blood 182 mm[Hg] 182 mm[Hg] [facility] Body temperature 36.108364 Kaylie 36.068012 [facility] Respiratory rate 18 /min 18 /min [facility] Oxygen 96 % 96 % [facility] saturation in Medical Arterial blood Center by Pulse oximetry Heart rate 92 /min 92 /min [facility] Diastolic blood 89 mm[Hg] 89 mm[Hg] [facility] Systolic blood 139 mm[Hg] 139 mm[Hg] [facility] Body temperature 37.144284 Kaylie 37.666979 [facility] Respiratory rate 18 /min 18 /min [facility] Oxygen 98 % 98 % [facility] saturation in Medical Arterial blood Center by Pulse oximetry Heart rate 90 /min 90 /min [facility] Diastolic blood 80 mm[Hg] 80 mm[Hg] [facility] Systolic blood 138 mm[Hg] 138 mm[Hg] [facility] Body temperature 37.980377 Kaylie 37.055246 [facility] Respiratory rate 18 /min 18 /min [facility] Oxygen 92 % 92 % [facility] saturation in Medical Arterial blood Center by Pulse oximetry Heart rate 87 /min 87 /min [facility] Diastolic blood 66 mm[Hg] 66 mm[Hg] [facility] Systolic blood 119 mm[Hg] 119 mm[Hg] [facility] Body temperature 36.327749 Kaylie 36.776163 [facility] Respiratory rate 20 /min 20 /min [facility] Heart rate 94 /min 94 /min [facility] Diastolic blood 73 mm[Hg] 73 mm[Hg] [facility] Systolic blood 119 mm[Hg] 119 mm[Hg] [facility] Body weight 88.419985 kg 88.645395 kg [facility] Body temperature 37.338653 Kaylie 37.859568 [facility] Respiratory rate 18 /min 18 /min [facility] Oxygen 96 % 96 % [facility] saturation in Medical Arterial blood Center by Pulse oximetry Heart rate 90 /min 90 /min [facility] Body height 175.351892 cm 175.358741 cm [facility] Diastolic blood 72 mm[Hg] 72 mm[Hg] [facility] Systolic blood 135 mm[Hg] 135 mm[Hg] [facility] Body mass index 28.7 kg/m2 28.7 kg/m2 [facility] (BMI) [Ratio] [facility] Body weight 104.204725 kg 104.734702 kg [facility] Body temperature 37.565075 Kaylie 37.671473 [facility] Respiratory rate 20 /min 20 /min [facility] Oxygen 93 % 93 % [facility] saturation in Medical Arterial blood Center by Pulse oximetry Heart rate 93 /min 93 /min [facility] Body height 177.916885 cm 177.558831 cm [facility] Diastolic blood 73 mm[Hg] 73 mm[Hg] [facility] pressure [facility] Center Systolic blood 125 mm[Hg] 125 mm[Hg] [facility] Body mass index 33.0 kg/m2 33.0 kg/m2 [facility] (BMI) [Ratio] [facility] Body temperature 36.417436 Kaylie 36.690248 [facility] Respiratory rate 18 /min 18 /min [facility] Oxygen 99 % 99 % [facility] saturation in Medical Arterial blood Center by Pulse oximetry Heart rate 89 /min 89 /min [facility] Diastolic blood 75 mm[Hg] 75 mm[Hg] [facility] pressure [facility] Center Systolic blood 132 mm[Hg] 132 mm[Hg] [facility] Body temperature 36.019599 Kaylie 36.793871 [facility] Respiratory rate 18 /min 18 /min [facility] Oxygen 99 % 99 % [facility] saturation in Medical Arterial blood Center by Pulse oximetry Heart rate 78 /min 78 /min [facility] Diastolic blood 82 mm[Hg] 82 mm[Hg] [facility] pressure [facility] Center Systolic blood 133 mm[Hg] 133 mm[Hg] [facility] [place] Body weight 104.668861 [address] [facility] Body temperature 36.483213 Kaylie 36.606754 [facility] Respiratory rate 20 /min 20 /min [facility] Oxygen 98 % 98 % [facility] saturation in Medical Arterial blood Center by Pulse oximetry Heart rate 98 /min 98 /min [facility] Body height 177.613278 cm 177.676542 cm [facility] Diastolic blood 74 mm[Hg] 74 mm[Hg] [facility] pressure [facility] Center Systolic blood 118 mm[Hg] 118 mm[Hg] [facility] Body mass index 33.0 kg/m2 33.0 kg/m2 [facility] (BMI) [Ratio] [facility] Body temperature 36.668322 Kaylie 36.701469 [facility] Respiratory rate 18 /min 18 /min [facility] Oxygen 96 % 96 % [facility] saturation in Medical Arterial blood Center by Pulse oximetry Heart rate 89 /min 89 /min [facility] Diastolic blood 87 mm[Hg] 87 mm[Hg] [facility] pressure [facility] Center Systolic blood 132 mm[Hg] 132 mm[Hg] [facility] Body temperature 37.688420 Kaylie 37.907205 [facility] Respiratory rate 18 /min 18 /min [facility] Oxygen 99 % 99 % [facility] saturation in Medical Arterial blood Center by Pulse oximetry Heart rate 84 /min 84 /min [facility] Diastolic blood 72 mm[Hg] 72 mm[Hg] [facility] Systolic blood 117 mm[Hg] 117 mm[Hg] [facility] Body temperature 36.614763 Kaylie 36.282243 [facility] Respiratory rate 18 /min 18 /min [facility] Oxygen 98 % 98 % [facility] saturation in Medical Arterial blood Center by Pulse oximetry Heart rate 88 /min 88 /min [facility] Diastolic blood 95 mm[Hg] 95 mm[Hg] [facility] Center Systolic blood 135 mm[Hg] 135 mm[Hg] [facility] Body temperature 36.197008 Kaylie 36.868085 [facility] Respiratory rate 18 /min 18 /min [facility] Oxygen 96 % 96 % [facility] saturation in Medical Arterial blood Center by Pulse oximetry Heart rate 98 /min 98 /min [facility] Diastolic blood 96 mm[Hg] 96 mm[Hg] [facility] pressure [facility] Center Systolic blood 138 mm[Hg] 138 mm[Hg] [facility] Body temperature 36.608293 Kaylie 36.783581 [facility] Respiratory rate 18 /min 18 /min [facility] Oxygen 98 % 98 % [facility] saturation in Medical Arterial blood Center by Pulse oximetry Heart rate 76 /min 76 /min [facility] Diastolic blood 76 mm[Hg] 76 mm[Hg] [facility] Systolic blood 132 mm[Hg] 132 mm[Hg] [facility] Body temperature 36.421212 Kaylie 36.103930 [facility] Respiratory rate 18 /min 18 /min [facility] Oxygen 98 % 98 % [facility] saturation in Medical Arterial blood Center by Pulse oximetry Heart rate 76 /min 76 /min [facility] Diastolic blood 78 mm[Hg] 78 mm[Hg] [facility] Systolic blood 112 mm[Hg] 112 mm[Hg] [facility] Heart rate 105 /min 105 /min [facility] Body height 177.307401 cm 177.240936 cm [facility] Diastolic blood 65 mm[Hg] 65 mm[Hg] [facility] Systolic blood 124 mm[Hg] 124 mm[Hg] [facility] Body mass index 33.0 kg/m2 33.0 kg/m2 [facility] (BMI) [Ratio] [facility] Body weight 104.559700 kg 104.777869 kg [facility] Body temperature 37.426798 Kaylie 37.139792 [facility] Respiratory rate 20 /min 20 /min [facility] Oxygen 92 % 92 % [facility] saturation in Medical Arterial blood Center by Pulse oximetry Body temperature 37.196839 Kaylie 37.486901 [facility] Respiratory rate 18 /min 18 /min [facility] Oxygen 93 % 93 % [facility] saturation in Medical Arterial blood Center by Pulse oximetry Heart rate 101 /min 101 /min [facility] Diastolic blood 68 mm[Hg] 68 mm[Hg] [facility] Systolic blood 108 mm[Hg] 108 mm[Hg] [facility] Body weight 79.633646 kg 79.169169 kg [facility] Body temperature 37.811771 Kaylie 37.986194 [facility] Respiratory rate 18 /min 18 /min [facility] Oxygen 95 % 95 % [facility] saturation in Medical Arterial blood Center by Pulse oximetry Heart rate 101 /min 101 /min [facility] Body height 175.285236 cm 175.225150 cm [facility] Diastolic blood 66 mm[Hg] 66 mm[Hg] [facility] pressure [facility] Center Systolic blood 98 mm[Hg] 98 mm[Hg] [facility] Body mass index 25.8 kg/m2 25.8 kg/m2 [facility] (BMI) [Ratio] [facility] Body temperature 36.536771 Kaylie 36.324881 [facility] Respiratory rate 18 /min 18 /min [facility] Oxygen 98 % 98 % [facility] saturation in Medical Arterial blood Center by Pulse oximetry Heart rate 79 /min 79 /min [facility] Diastolic blood 69 mm[Hg] 69 mm[Hg] [facility] pressure [facility] Center Systolic blood 103 mm[Hg] 103 mm[Hg] [facility] Body temperature 36.878415 Kaylie 36.871853 [facility] Respiratory rate 18 /min 18 /min [facility] Oxygen 98 % 98 % [facility] saturation in Medical Arterial blood Center by Pulse oximetry Heart rate 78 /min 78 /min [facility] Diastolic blood 76 mm[Hg] 76 mm[Hg] [facility] [place] Systolic blood 122 mm[Hg] 122 mm[Hg] [facility] Body temperature 36.866804 Kaylie 36.757022 [facility] Respiratory rate 19 /min 19 /min [facility] Oxygen 96 % 96 % [facility] saturation in Medical Arterial blood Center by Pulse oximetry Heart rate 86 /min 86 /min [facility] Diastolic blood 63 mm[Hg] 63 mm[Hg] [facility] Systolic blood 103 mm[Hg] 103 mm[Hg] [facility] [place] Body temperature 36.708102 Kaylie 36.300548 [facility] Respiratory rate 18 /min 18 /min [facility] Oxygen 98 % 98 % [facility] saturation in Medical Arterial blood Center by Pulse oximetry Heart rate 84 /min 84 /min [facility] Diastolic blood 67 mm[Hg] 67 mm[Hg] [facility] Systolic blood 119 mm[Hg] 119 mm[Hg] [facility] Body temperature 37.886242 Kaylie 37.296812 [facility] Respiratory rate 18 /min 18 /min [facility] Oxygen 98 % 98 % [place] saturation in Medical Arterial blood Center by Pulse oximetry Heart rate 91 /min 91 /min [facility] Diastolic blood 60 mm[Hg] 60 mm[Hg] [facility] pressure [facility] Center Systolic blood 103 mm[Hg] 103 mm[Hg] [facility] Body temperature 36.293699 Kaylie 36.933050 [facility] Respiratory rate 18 /min 18 /min [facility] Oxygen 98 % 98 % [facility] saturation in Medical Arterial blood Center by Pulse oximetry Heart rate 76 /min 76 /min [facility] Diastolic blood 76 mm[Hg] 76 mm[Hg] [facility] pressure [facility] Center Systolic blood 124 mm[Hg] 124 mm[Hg] [facility] Body temperature 36.404170 Kaylie 36.686084 [facility] Respiratory rate 18 /min 18 /min [facility] Oxygen 98 % 98 % [place] saturation in Medical Arterial blood Center by Pulse oximetry Heart rate 76 /min 76 /min [facility] Diastolic blood 76 mm[Hg] 76 mm[Hg] [facility] pressure [facility] Center Systolic blood 124 mm[Hg] 124 mm[Hg] [facility] Body weight 104.324455 kg 104.37[address] [facility] Body temperature 36.004907 Kaylie 36.859137 [facility] Respiratory rate 18 /min 18 /min [facility] Oxygen 96 % 96 % [place] saturation in Medical Arterial blood Center by Pulse oximetry Heart rate 90 /min 90 /min [facility] Body height 177.257413 cm 177.999709 cm [facility] Diastolic blood 76 mm[Hg] 76 mm[Hg] [facility] Systolic blood 116 mm[Hg] 116 mm[Hg] [facility] Body mass index 33.0 kg/m2 33.0 kg/m2 [facility] (BMI) [Ratio] [facility] Body temperature 36.542273 Kaylie 36.801500 [facility] Respiratory rate 18 /min 18 /min [facility] Heart rate 85 /min 85 /min [facility] Diastolic blood 82 mm[Hg] 82 mm[Hg] [facility] pressure [facility] Center Systolic blood 141 mm[Hg] 141 mm[Hg] [facility] Body temperature 36.275051 Kayile 36.763429 [facility] Respiratory rate 18 /min 18 /min [facility] Heart rate 84 /min 84 /min [facility] Diastolic blood 81 mm[Hg] 81 mm[Hg] [facility] Systolic blood 139 mm[Hg] 139 mm[Hg] [facility] Body weight 95.006783 kg 95.107788 kg [facility] Body temperature 36.704056 Kaylie 36.407502 [facility] Respiratory rate 17 /min 17 /min [facility] Oxygen 99 % 99 % [place] saturation in Medical Arterial blood Center by Pulse oximetry Heart rate 86 /min 86 /min [facility] Body height 177.284707 cm 177.642665 cm [facility] Diastolic blood 87 mm[Hg] 87 mm[Hg] [facility] Systolic blood 137 mm[Hg] 137 mm[Hg] [facility] Body mass index 30.1 kg/m2 30.1 kg/m2 [facility] (BMI) [Ratio] [facility] Body temperature 37.802265 Kaylie 37.543664 [facility] Respiratory rate 18 /min 18 /min [facility] Oxygen 94 % 94 % [facility] saturation in Medical Arterial blood Center by Pulse oximetry Heart rate 103 /min 103 /min [facility] Diastolic blood 72 mm[Hg] 72 mm[Hg] [facility] Systolic blood 111 mm[Hg] 111 mm[Hg] [facility] Body temperature 36.412119 Kaylie 36.421766 [facility] Respiratory rate 16 /min 16 /min [facility] Oxygen 96 % 96 % [facility] saturation in Medical Arterial blood Center by Pulse oximetry Heart rate 97 /min 97 /min [facility] Diastolic blood 77 mm[Hg] 77 mm[Hg] [facility] Systolic blood 133 mm[Hg] 133 mm[Hg] [facility] Body temperature 36.288331 Kaylie 36.345341 [facility] Respiratory rate 17 /min 17 /min [facility] Oxygen 94 % 94 % [facility] saturation in Medical Arterial blood Center by Pulse oximetry Heart rate 92 /min 92 /min [facility] Diastolic blood 80 mm[Hg] 80 mm[Hg] [facility] Systolic blood 122 mm[Hg] 122 mm[Hg] [facility] Body weight 113.156912 [address] [facility] Body temperature 36.982998 Kaylie 36.977554 [facility] Respiratory rate 16 /min 16 /min [facility] Oxygen 94 % 94 % [facility] saturation in [facility] by Pulse oximetry Heart rate 90 /min 90 /min [facility] Body height 177.155512 cm 177.735336 cm [facility] Diastolic blood 64 mm[Hg] 64 mm[Hg] [facility] Systolic blood 128 mm[Hg] 128 mm[Hg] [facility] Body mass index 35.8 kg/m2 35.8 kg/m2 [facility] (BMI) [Ratio] [facility] Body temperature 36.827643 Kaylie 36.963929 [facility] Respiratory rate 18 /min 18 /min [facility] Oxygen 95 % 95 % [place] saturation in [facility] Center by Pulse oximetry Heart rate 76 /min 76 /min [facility] Diastolic blood 76 mm[Hg] 76 mm[Hg] [facility] Systolic blood 128 mm[Hg] 128 mm[Hg] [facility] Body temperature 36.961574 Kaylie 36.639397 [facility] Respiratory rate 18 /min 18 /min [facility] Oxygen 97 % 97 % [place] saturation in [facility] by Pulse oximetry Heart rate 78 /min 78 /min [facility] Diastolic blood 70 mm[Hg] 70 mm[Hg] [facility] Systolic blood 124 mm[Hg] 124 mm[Hg] [facility] Body weight 86.040895 kg 86.493302 kg [facility] Body temperature 36.536968 Kaylie 36.400061 [facility] Respiratory rate 19 /min 19 /min [facility] Oxygen 97 % 97 % [facility] [place] saturation in [facility] by Pulse oximetry Heart rate 74 /min 74 /min [facility] Body height 180.245661 cm 180.401249 cm [facility] Diastolic blood 68 mm[Hg] 68 mm[Hg] [facility] pressure [facility] Center Systolic blood 128 mm[Hg] 128 mm[Hg] [facility] Body mass index 26.4 kg/m2 26.4 kg/m2 [facility] (BMI) [Ratio] [facility] Body temperature 36.153767 Kaylie 36.215570 [facility] Respiratory rate 18 /min 18 /min [facility] Oxygen 98 % 98 % [place] saturation in [facility] by Pulse oximetry Heart rate 91 /min 91 /min [facility] Diastolic blood 65 mm[Hg] 65 mm[Hg] [facility] Systolic blood 129 mm[Hg] 129 mm[Hg] [facility] Body temperature 36.781927 Kaylie 36.992993 [facility] Respiratory rate 16 /min 16 /min [facility] Oxygen 98 % 98 % [facility] [place] saturation in [facility] blood Center by Pulse oximetry Heart rate 82 /min 82 /min [facility] Diastolic blood 64 mm[Hg] 64 mm[Hg] [facility] Systolic blood 123 mm[Hg] 123 mm[Hg] [facility] Body temperature 36.980238 Kaylie 36.941558 [facility] Respiratory rate 14 /min 14 /min [facility] Oxygen 95 % 95 % [facility] [place] saturation in [facility] blood Center by Pulse oximetry Heart rate 61 /min 61 /min [facility] Diastolic blood 74 mm[Hg] 74 mm[Hg] [facility] Systolic blood 124 mm[Hg] 124 mm[Hg] [facility] Body temperature 37.697381 Kaylie 37.984471 [facility] Respiratory rate 16 /min 16 /min [facility] Oxygen 99 % 99 % [facility] [place] saturation in [facility] by Pulse oximetry Heart rate 89 /min 89 /min [facility] Diastolic blood 76 mm[Hg] 76 mm[Hg] [facility] pressure [facility] Center Systolic blood 125 mm[Hg] 125 mm[Hg] [facility] Body temperature 37.255935 Kaylie 37.051624 [facility] Respiratory rate 14 /min 14 /min [facility] Oxygen 99 % 99 % [facility] [place] saturation in [facility] by Pulse oximetry Heart rate 91 /min 91 /min [facility] Diastolic blood 80 mm[Hg] 80 mm[Hg] [facility] pressure [facility] Center Systolic blood 120 mm[Hg] 120 mm[Hg] [facility] Body temperature 36.726410 Kaylie 36.543165 [facility] Respiratory rate 18 /min 18 /min [facility] Oxygen 99 % 99 % [facility] [place] saturation in [facility] blood [facility] by Pulse oximetry Heart rate 93 /min 93 /min [facility] Diastolic blood 78 mm[Hg] 78 mm[Hg] [facility] [place] Systolic blood 115 mm[Hg] 115 mm[Hg] [facility] Body temperature 36.050690 Kaylie 36.580819 [facility] Respiratory rate 18 /min 18 /min [facility] Oxygen 95 % 95 % [facility] [place] saturation in [facility] Center by Pulse oximetry Heart rate 83 /min 83 /min [facility] Diastolic blood 69 mm[Hg] 69 mm[Hg] [facility] Systolic blood 102 mm[Hg] 102 mm[Hg] [facility] Body temperature 37.487575 Kaylie 37.378494 [facility] Respiratory rate 18 /min 18 /min [facility] Oxygen 98 % 98 % [facility] [place] saturation in [facility] Center by Pulse oximetry Heart rate 91 /min 91 /min [facility] Diastolic blood 65 mm[Hg] 65 mm[Hg] [facility] Systolic blood 101 mm[Hg] 101 mm[Hg] [facility] Body temperature 37.850692 Kaylie 37.387021 [facility] Respiratory rate 18 /min 18 /min [facility] Oxygen 96 % 96 % [place] saturation in [facility] Center by Pulse oximetry Heart rate 94 /min 94 /min [facility] Diastolic blood 87 mm[Hg] 87 mm[Hg] [facility] pressure [facility] Center Systolic blood 156 mm[Hg] 156 mm[Hg] [facility] Body temperature 36.389618 Kaylie 36.179431 [facility] Respiratory rate 17 /min 17 /min [facility] Oxygen 96 % 96 % [place] saturation in [facility] by Pulse oximetry Heart rate 95 /min 95 /min [facility] Diastolic blood 91 mm[Hg] 91 mm[Hg] [facility] pressure [facility] Center Systolic blood 149 mm[Hg] 149 mm[Hg] [facility] Body temperature 36.887898 Kaylie 36.980452 [facility] Respiratory rate 17 /min 17 /min [facility] Oxygen 96 % 96 % [facility] [place] saturation in [facility] by Pulse oximetry Heart rate 92 /min 92 /min [facility] Diastolic blood 86 mm[Hg] 86 mm[Hg] [facility] pressure [facility] Center Systolic blood 157 mm[Hg] 157 mm[Hg] [facility] Body temperature 36.347756 Kaylie 36.346332 [facility] Respiratory rate 19 /min 19 /min [facility] Oxygen 99 % 99 % [facility] [place] saturation in [facility] blood [facility] by Pulse oximetry Heart rate 100 /min 100 /min [facility] Diastolic blood 91 mm[Hg] 91 mm[Hg] [facility] pressure [facility] Center Systolic blood 160 mm[Hg] 160 mm[Hg] [facility] Body temperature 36.547555 Kaylie 36.746591 [facility] Respiratory rate 22 /min 22 /min [facility] Oxygen 95 % 95 % [facility] [place] saturation in [facility] blood [facility] by Pulse oximetry Heart rate 82 /min 82 /min [facility] Diastolic blood 91 mm[Hg] 91 mm[Hg] [facility] pressure [facility] Center Systolic blood 143 mm[Hg] 143 mm[Hg] [facility] Body temperature 37.487373 Kaylie 37.786739 [facility] Respiratory rate 20 /min 20 /min [facility] Oxygen 95 % 95 % [facility] [place] saturation in [facility] by Pulse oximetry Heart rate 111 /min 111 /min [facility] Diastolic blood 89 mm[Hg] 89 mm[Hg] [facility] pressure [facility] Center Systolic blood 128 mm[Hg] 128 mm[Hg] [facility] Respiratory rate 20 /min 20 /min [facility] Oxygen 95 % 95 % [facility] [place] saturation in [facility] Ar[facility] blood [facility] by Pulse oximetry Heart rate 113 /min 113 /min [facility] Body height 177.238913 cm 177.104729 cm [facility] Diastolic blood 68 mm[Hg] 68 mm[Hg] [facility] pressure [facility] Center Systolic blood 133 mm[Hg] 133 mm[Hg] [facility] Body mass index 31.6 kg/m2 31.6 kg/m2 [facility] (BMI) [Ratio] [facility] Body weight 100.841189 kg 100.844776 kg [facility] Body temperature 37.049796 Kaylie 37.826962 [facility] Body temperature 36.751462 Kaylie 36.696785 [facility] Respiratory rate 18 /min 18 /min [facility] Oxygen 97 % 97 % [place] saturation in [facility] by Pulse oximetry Heart rate 67 /min 67 /min [facility] Diastolic blood 78 mm[Hg] 78 mm[Hg] [facility] Systolic blood 134 mm[Hg] 134 mm[Hg] [facility] Body weight 95.706555 kg 95.240150 kg [facility] Body temperature 36.754346 Kaylie 36.523311 [facility] Respiratory rate 20 /min 20 /min [facility] Oxygen 100 % 100 % [place] saturation in [facility] by Pulse oximetry Heart rate 84 /min 84 /min [facility] Body height 177.112385 cm 177.355285 cm [facility] Diastolic blood 90 mm[Hg] 90 mm[Hg] [facility] pressure [facility] Center Systolic blood 130 mm[Hg] 130 mm[Hg] [facility] Body mass index 30.0 kg/m2 30.0 kg/m2 [facility] (BMI) [Ratio] [facility] Body temperature 36.546799 Kaylie 36.480029 [facility] Respiratory rate 18 /min 18 /min [facility] Oxygen 95 % 95 % [facility] [place] saturation in [facility] blood [facility] by Pulse oximetry Heart rate 73 /min 73 /min [facility] Diastolic blood 71 mm[Hg] 71 mm[Hg] [facility] [place] Systolic blood 139 mm[Hg] 139 mm[Hg] [facility] Body weight 100.740551 kg 100.9630[address] [facility] Body temperature 36.305493 Kaylie 36.122826 [facility] Respiratory rate 18 /min 18 /min [facility] Oxygen 92 % 92 % [facility] [place] saturation in [facility] by Pulse oximetry Heart rate 102 /min 102 /min [facility] Body height 177.325384 cm 177.292150 cm [facility] Diastolic blood 56 mm[Hg] 56 mm[Hg] [facility] Systolic blood 109 mm[Hg] 109 mm[Hg] [facility] Body mass index 31.6 kg/m2 31.6 kg/m2 [facility] (BMI) [Ratio] [facility] Body temperature 36.219591 Kaylie 36.473204 [facility] Respiratory rate 18 /min 18 /min [facility] Oxygen 98 % 98 % [facility] [place] saturation in [facility] blood [facility] by Pulse oximetry Heart rate 88 /min 88 /min [facility] Diastolic blood 78 mm[Hg] 78 mm[Hg] [facility] Systolic blood 148 mm[Hg] 148 mm[Hg] [facility] Body temperature 36.976569 Kaylie 36.901034 [facility] Respiratory rate 18 /min 18 /min [facility] Oxygen 98 % 98 % [facility] [place] saturation in [facility] Ar[facility] blood Center by Pulse oximetry Heart rate 98 /min 98 /min [facility] Diastolic blood 68 mm[Hg] 68 mm[Hg] [facility] Systolic blood 113 mm[Hg] 113 mm[Hg] [facility] Body temperature 37.097212 Kaylie 37.899979 [facility] Respiratory rate 18 /min 18 /min [facility] Oxygen 95 % 95 % [facility] saturation in Medical Arterial blood Center by Pulse oximetry Heart rate 84 /min 84 /min [facility] Diastolic blood 82 mm[Hg] 82 mm[Hg] [facility] pressure [facility] Center Systolic blood 131 mm[Hg] 131 mm[Hg] [facility] [place] Body temperature 37.955684 Kaylie 37.536865 [facility] Respiratory rate 18 /min 18 /min [facility] Oxygen 94 % 94 % [facility] saturation in Medical Arterial blood Center by Pulse oximetry Heart rate 88 /min 88 /min [facility] Diastolic blood 91 mm[Hg] 91 mm[Hg] [facility] [place] Systolic blood 134 mm[Hg] 134 mm[Hg] [facility] Body weight 102.376371 kg 102.501110 kg [facility] Respiratory rate 18 /min 18 /min [facility] Oxygen 93 % 93 % [facility] saturation in Medical Arter[facility] blood Center by Pulse oximetry Heart rate 98 /min 98 /min [facility] Body height 182.669010 cm 182.847790 cm [facility] Diastolic blood 80 mm[Hg] 80 mm[Hg] [facility] Systolic blood 178 mm[Hg] 178 mm[Hg] [facility] Body mass index 30.5 kg/m2 30.5 kg/m2 [facility] (BMI) [Ratio] [facility] Body temperature 36.739882 Kaylie 36.905225 [facility] Respiratory rate 18 /min 18 /min [facility] Oxygen 95 % 95 % [facility] saturation in Medical Arterial blood Center by Pulse oximetry Heart rate 96 /min 96 /min [facility] Diastolic blood 89 mm[Hg] 89 mm[Hg] [facility] Systolic blood 114 mm[Hg] 114 mm[Hg] [facility] Body temperature 36.733010 Kaylie 36.927309 [facility] Respiratory rate 17 /min 17 /min [facility] Oxygen 96 % 96 % [facility] [place] saturation in [facility] Ar[facility] blood [facility] by Pulse oximetry Heart rate 98 /min 98 /min [facility] Diastolic blood 68 mm[Hg] 68 mm[Hg] [facility] pressure [facility] Center Systolic blood 128 mm[Hg] 128 mm[Hg] [facility] Oxygen 97 % 97 % [facility] [place] saturation in [facility] Ar[facility] blood [facility] by Pulse oximetry Heart rate 116 /min 116 /min [facility] Diastolic blood 61 mm[Hg] 61 mm[Hg] [facility] pressure [facility] Center Systolic blood 117 mm[Hg] 117 mm[Hg] [facility] Respiratory rate 18 /min 18 /min [facility] Body temperature 36.628568 Kaylie 36.464257 [facility] Body temperature 36.619052 Kaylie 36.387255 [facility] Respiratory rate 18 /min 18 /min [facility] Oxygen 97 % 97 % [place] saturation in [facility] Ar[facility] blood Center by Pulse oximetry Heart rate 76 /min 76 /min [facility] Diastolic blood 76 mm[Hg] 76 mm[Hg] [facility] Systolic blood 138 mm[Hg] 138 mm[Hg] [facility] Body temperature 36.242279 Kaylie 36.855907 [facility] Respiratory rate 18 /min 18 /min [facility] Oxygen 98 % 98 % [facility] [place] saturation in [facility] Ar[facility] blood Center by Pulse oximetry Heart rate 85 /min 85 /min [facility] Diastolic blood 95 mm[Hg] 95 mm[Hg] [facility] Systolic blood 154 mm[Hg] 154 mm[Hg] [facility] Body weight 86.585676 kg 86.481546 kg [facility] Body temperature 36.472942 Kaylie 36.995656 [facility] Respiratory rate 20 /min 20 /min [facility] Oxygen 95 % 95 % [facility] [place] saturation in [facility] Ar[facility] blood Center by Pulse oximetry Heart rate 76 /min 76 /min [facility] Body height 170.841157 cm 170.428609 cm [facility] Diastolic blood 74 mm[Hg] 74 mm[Hg] [facility] pressure [facility] Center Systolic blood 120 mm[Hg] 120 mm[Hg] [facility] Body mass index 29.7 kg/m2 29.7 kg/m2 [facility] (BMI) [Ratio] [facility] Body temperature 36.465755 Kaylie 36.681258 [facility] Respiratory rate 16 /min 16 /min [facility] Oxygen 95 % 95 % [place] saturation in [facility] Ar[facility] blood Center by Pulse oximetry Heart rate 92 /min 92 /min [facility] Diastolic blood 68 mm[Hg] 68 mm[Hg] [facility] pressure [facility] Center Systolic blood 112 mm[Hg] 112 mm[Hg] [facility] Body temperature 37.628935 Kaylie 37.886145 [facility] Respiratory rate 18 /min 18 /min [facility] Oxygen 95 % 95 % [facility] [place] saturation in Medical Ar[facility] blood Center by Pulse oximetry Heart rate 88 /min 88 /min [facility] Diastolic blood 57 mm[Hg] 57 mm[Hg] [facility] Systolic blood 107 mm[Hg] 107 mm[Hg] [facility] Body weight 120.717677 kg 120.1617[address] [facility] Body temperature 36.775224 Kaylie 36.873698 [facility] Respiratory rate 18 /min 18 /min [facility] Oxygen 98 % 98 % [place] saturation in [facility] Ar[facility] blood Center by Pulse oximetry Heart rate 84 /min 84 /min [facility] Body height 182.630671 cm 182.848878 cm [facility] Diastolic blood 78 mm[Hg] 78 mm[Hg] [facility] pressure [facility] Center Systolic blood 148 mm[Hg] 148 mm[Hg] [facility] Body mass index 35.8 kg/m2 35.8 kg/m2 [facility] (BMI) [Ratio] [facility] Center Body temperature 37.430884 Kaylie 37.630631 [facility] Respiratory rate 18 /min 18 /min [facility] Oxygen 95 % 95 % [place] saturation in [facility] Ar[facility] blood Center by Pulse oximetry Heart rate 94 /min 94 /min [facility] Diastolic blood 56 mm[Hg] 56 mm[Hg] [facility] Systolic blood 110 mm[Hg] 110 mm[Hg] [facility] Body temperature 38.797632 Kaylie 38.729634 [facility] Respiratory rate 18 /min 18 /min [facility] Oxygen 97 % 97 % [place] saturation in Medical Arter[facility] blood Center by Pulse oximetry Heart rate 98 /min 98 /min [facility] Diastolic blood 87 mm[Hg] 87 mm[Hg] [facility] [place] Systolic blood 140 mm[Hg] 140 mm[Hg] [facility] Body temperature 36.724981 Kaylie 36.711842 [facility] Respiratory rate 16 /min 16 /min [facility] Oxygen 98 % 98 % [facility] [place] saturation in Medical Arterial blood Center by Pulse oximetry Heart rate 87 /min 87 /min [facility] Diastolic blood 84 mm[Hg] 84 mm[Hg] [facility] [place] Systolic blood 138 mm[Hg] 138 mm[Hg] [facility] Body temperature 37.382156 Kaylie 37.541337 [facility] Respiratory rate 18 /min 18 /min [facility] Oxygen 97 % 97 % [facility] [place] saturation in Medical Arterial blood Center by Pulse oximetry Heart rate 88 /min 88 /min [facility] Diastolic blood 72 mm[Hg] 72 mm[Hg] [facility] [place] Systolic blood 134 mm[Hg] 134 mm[Hg] [facility] Body temperature 36.390123 Kaylie 36.399206 [facility] Respiratory rate 18 /min 18 /min [facility] Oxygen 98 % 98 % [facility] [place] saturation in Medical Arter[facility] blood Center by Pulse oximetry Heart rate 71 /min 71 /min [facility] Diastolic blood 68 mm[Hg] 68 mm[Hg] [facility] [place] Systolic blood 133 mm[Hg] 133 mm[Hg] [facility] Body temperature 35.065742 Kaylie 35.023393 [facility] Respiratory rate 17 /min 17 /min [facility] Oxygen 95 % 95 % [facility] [place] saturation in Medical Arter[facility] blood Center by Pulse oximetry Heart rate 93 /min 93 /min [facility] Diastolic blood 105 mm[Hg] 105 mm[Hg] [facility] pressure [facility] Center Systolic blood 180 mm[Hg] 180 mm[Hg] [facility] Body temperature 36.431217 Kaylie 36.858211 [facility] Respiratory rate 20 /min 20 /min [facility] Oxygen 97 % 97 % [place] saturation in Medical Ar[facility] blood Center by Pulse oximetry Heart rate 89 /min 89 /min [facility] Diastolic blood 92 mm[Hg] 92 mm[Hg] [facility] Systolic blood 158 mm[Hg] 158 mm[Hg] [facility] Body temperature 36.487017 Kaylie 36.294304 [facility] Respiratory rate 18 /min 18 /min [facility] Oxygen 96 % 96 % [place] saturation in Medical Arterial blood Center by Pulse oximetry Heart rate 86 /min 86 /min [facility] Diastolic blood 87 mm[Hg] 87 mm[Hg] [facility] pressure [facility] Center Systolic blood 163 mm[Hg] 163 mm[Hg] [facility] [place] Body temperature 36.374527 Kaylie 36.789831 [facility] Respiratory rate 20 /min 20 /min [facility] Oxygen 98 % 98 % [place] saturation in Medical Arterial blood Center by Pulse oximetry Heart rate 89 /min 89 /min [facility] Diastolic blood 103 mm[Hg] 103 mm[Hg] [facility] pressure [facility] Center Systolic blood 154 mm[Hg] 154 mm[Hg] [facility] Heart rate 91 /min 91 /min [facility] Diastolic blood 110 mm[Hg] 110 mm[Hg] [facility] pressure [facility] Center Systolic blood 167 mm[Hg] 167 mm[Hg] [facility] Body temperature 36.629837 Kaylie 36.511030 [facility] Respiratory rate 18 /min 18 /min [facility] Oxygen 98 % 98 % [place] saturation in Medical Arterial blood Center by Pulse oximetry Body temperature 36.724117 Kaylie 36.922108 [facility] Respiratory rate 20 /min 20 /min [facility] Oxygen 95 % 95 % [facility] [place] saturation in Medical Arterial blood Center by Pulse oximetry Heart rate 96 /min 96 /min [facility] Diastolic blood 146 mm[Hg] 146 mm[Hg] [facility] pressure [facility] Center Systolic blood 211 mm[Hg] 211 mm[Hg] [facility] Body temperature 36.816984 Kaylie 36.335496 [facility] Respiratory rate 18 /min 18 /min [facility] Oxygen 97 % 97 % [facility] [place] saturation in Medical Arterial blood Center by Pulse oximetry Heart rate 79 /min 79 /min [facility] Diastolic blood 106 mm[Hg] 106 mm[Hg] [facility] pressure [facility] Center Systolic blood 179 mm[Hg] 179 mm[Hg] [facility] [place] Body temperature 37.972561 Kaylie 37.952144 [facility] Respiratory rate 18 /min 18 /min [facility] Oxygen 96 % 96 % [place] saturation in Medical Ar[facility] blood Center by Pulse oximetry Heart rate 81 /min 81 /min [facility] Diastolic blood 82 mm[Hg] 82 mm[Hg] [facility] Systolic blood 151 mm[Hg] 151 mm[Hg] [facility] Body temperature 36.006245 Kaylie 36.761288 [facility] Respiratory rate 18 /min 18 /min [facility] Heart rate 77 /min 77 /min [facility] Body temperature 37.062537 Kaylie 37.189875 [facility] Respiratory rate 18 /min 18 /min [facility] Oxygen 97 % 97 % [place] saturation in [facility] Ar[facility] blood Center by Pulse oximetry Heart rate 80 /min 80 /min [facility] Diastolic blood 89 mm[Hg] 89 mm[Hg] [facility] pressure [facility] Center Systolic blood 153 mm[Hg] 153 mm[Hg] [facility] Oxygen 97 % 97 % [place] saturation in [facility] Ar[facility] blood Center by Pulse oximetry Diastolic blood 90 mm[Hg] 90 mm[Hg] [facility] [facility] Systolic blood 177 mm[Hg] 177 mm[Hg] [facility] Body temperature 36.468187 Kaylie 36.184605 [facility] Respiratory rate 17 /min 17 /min [facility] Oxygen 95 % 95 % [facility] saturation in Medical Arterial blood Center by Pulse oximetry Heart rate 67 /min 67 /min [facility] Diastolic blood 98 mm[Hg] 98 mm[Hg] [facility] Systolic blood 160 mm[Hg] 160 mm[Hg] [facility] Body weight 100.963655 kg 100.6830[address] [facility] Body temperature 36.317199 Kaylie 36.149871 [facility] Respiratory rate 19 /min 19 /min [facility] Oxygen 98 % 98 % [place] saturation in [facility] Arterial blood Center by Pulse oximetry Heart rate 92 /min 92 /min [facility] Body height 177.798986 cm 177.686557 cm [facility] Diastolic blood 103 mm[Hg] 103 mm[Hg] [facility] Systolic blood 166 mm[Hg] 166 mm[Hg] [facility] Body mass index 31.6 kg/m2 31.6 kg/m2 [facility] (BMI) [Ratio] [facility] Body temperature 36.053251 Kaylie 36.689843 [facility] Respiratory rate 18 /min 18 /min [facility] Oxygen 96 % 96 % [facility] saturation in Medical Arterial blood Center by Pulse oximetry Heart rate 90 /min 90 /min [facility] Diastolic blood 74 mm[Hg] 74 mm[Hg] [facility] Systolic blood 145 mm[Hg] 145 mm[Hg] [facility] Body temperature 36.878543 Kaylie 36.312126 [facility] Respiratory rate 18 /min 18 /min [facility] Oxygen 97 % 97 % [facility] saturation in Medical Arterial blood Center by Pulse oximetry Heart rate 92 /min 92 /min [facility] Diastolic blood 78 mm[Hg] 78 mm[Hg] [facility] Systolic blood 147 mm[Hg] 147 mm[Hg] [facility] Body temperature 37.506260 Kaylie 37.912740 [facility] Respiratory rate 19 /min 19 /min [facility] Oxygen 96 % 96 % [facility] saturation in Medical Arterial blood Center by Pulse oximetry Heart rate 90 /min 90 /min [facility] Diastolic blood 74 mm[Hg] 74 mm[Hg] [facility] pressure [facility] Systolic blood 132 mm[Hg] 132 mm[Hg] [facility] Body temperature 36.566386 Kaylie 36.750069 [facility] Respiratory rate 18 /min 18 /min [facility] Oxygen 92 % 92 % [facility] saturation in Medical Arterial blood Center by Pulse oximetry Heart rate 93 /min 93 /min [facility] Diastolic blood 78 mm[Hg] 78 mm[Hg] [facility] pressure [facility] Systolic blood 130 mm[Hg] 130 mm[Hg] [facility] Body temperature 36.837436 Kaylie 36.869224 [facility] Respiratory rate 17 /min 17 /min [facility] Oxygen 97 % 97 % [place] saturation in [facility] Ar[facility] blood Center by Pulse oximetry Heart rate 75 /min 75 /min [facility] Diastolic blood 65 mm[Hg] 65 mm[Hg] [facility] pressure [facility] Systolic blood 139 mm[Hg] 139 mm[Hg] [facility] Body weight 104.289763 kg 104.634842 kg [facility] Body temperature 36.548642 Kaylie 36.112348 [facility] Respiratory rate 17 /min 17 /min [facility] Oxygen 92 % 92 % [place] saturation in [facility] Ar[facility]ial blood Center by Pulse oximetry Heart rate 88 /min 88 /min [facility] Body height 177.276067 cm 177.878307 cm [facility] Diastolic blood 74 mm[Hg] 74 mm[Hg] [facility] Systolic blood 126 mm[Hg] 126 mm[Hg] [facility] Body mass index 33.0 kg/m2 33.0 kg/m2 [facility] (BMI) [Ratio] [facility] Body temperature 37.561767 Kaylie 37.193020 [facility] Respiratory rate 18 /min 18 /min [facility] Oxygen 96 % 96 % [place] saturation in Medical Arterial blood Center by Pulse oximetry Heart rate 93 /min 93 /min [facility] Diastolic blood 78 mm[Hg] 78 mm[Hg] [facility] Systolic blood 138 mm[Hg] 138 mm[Hg] [facility] Body temperature 36.700367 Kaylie 36.821463 [facility] Respiratory rate 18 /min 18 /min [facility] Oxygen 97 % 97 % [facility] saturation in Medical Arterial blood Center by Pulse oximetry Heart rate 89 /min 89 /min [facility] Diastolic blood 86 mm[Hg] 86 mm[Hg] [facility] [place] Systolic blood 142 mm[Hg] 142 mm[Hg] [facility] [place] Body temperature 36.178007 Kaylie 36.512892 [facility] Respiratory rate 18 /min 18 /min [facility] Oxygen 98 % 98 % [facility] saturation in Medical Arterial blood Center by Pulse oximetry Heart rate 75 /min 75 /min [facility] Diastolic blood 65 mm[Hg] 65 mm[Hg] [facility] [place] Systolic blood 131 mm[Hg] 131 mm[Hg] [facility] Body temperature 36.003013 Kaylie 36.017320 [facility] Respiratory rate 17 /min 17 /min [facility] Oxygen 97 % 97 % [facility] saturation in Medical Arterial blood Center by Pulse oximetry Heart rate 81 /min 81 /min [facility] Diastolic blood 73 mm[Hg] 73 mm[Hg] [facility] [place] Systolic blood 139 mm[Hg] 139 mm[Hg] [facility] Body temperature 36.960367 Kaylie 36.007229 [facility] Respiratory rate 18 /min 18 /min [facility] Oxygen 98 % 98 % [facility] saturation in Medical Arterial blood Center by Pulse oximetry Heart rate 88 /min 88 /min [facility] Diastolic blood 72 mm[Hg] 72 mm[Hg] [facility] [place] Systolic blood 148 mm[Hg] 148 mm[Hg] [facility] [place] Body temperature 36.120420 Kaylie 36.864506 [facility] Respiratory rate 17 /min 17 /min [facility] Oxygen 95 % 95 % [facility] saturation in Medical Arterial blood Center by Pulse oximetry Heart rate 84 /min 84 /min [facility] Diastolic blood 83 mm[Hg] 83 mm[Hg] [facility] pressure [facility] Systolic blood 138 mm[Hg] 138 mm[Hg] [facility] Body temperature 37.399498 Kaylie 37.024109 [facility] Respiratory rate 18 /min 18 /min [facility] Oxygen 95 % 95 % [facility] [place] saturation in Medical Arterial blood Center by Pulse oximetry Heart rate 88 /min 88 /min [facility] Diastolic blood 78 mm[Hg] 78 mm[Hg] [facility] Systolic blood 143 mm[Hg] 143 mm[Hg] [facility] Body temperature 36.249089 Kaylie 36.364851 [facility] Respiratory rate 18 /min 18 /min [facility] Oxygen 95 % 95 % [facility] [place] saturation in Medical Arterial blood Center by Pulse oximetry Heart rate 87 /min 87 /min [facility] Diastolic blood 98 mm[Hg] 98 mm[Hg] [facility] Systolic blood 122 mm[Hg] 122 mm[Hg] [facility] [place] Body temperature 36.569016 Kaylie 36.012578 [facility] Respiratory rate 16 /min 16 /min [facility] Oxygen 95 % 95 % [facility] [place] saturation in Medical Arterial blood Center by Pulse oximetry Heart rate 68 /min 68 /min [facility] Diastolic blood 60 mm[Hg] 60 mm[Hg] [facility] Systolic blood 118 mm[Hg] 118 mm[Hg] [facility] [place] Body temperature 37.047254 Kaylie 37.183131 [facility] Respiratory rate 20 /min 20 /min [facility] Oxygen 97 % 97 % [facility] [place] saturation in Medical Arterial blood Center by Pulse oximetry Heart rate 96 /min 96 /min [facility] Diastolic blood 95 mm[Hg] 95 mm[Hg] [facility] [place] Systolic blood 167 mm[Hg] 167 mm[Hg] [facility] Body temperature 36.018235 Kaylie 36.922749 [facility] Respiratory rate 20 /min 20 /min [facility] Oxygen 96 % 96 % [facility] [place] saturation in Medical Arterial blood Center by Pulse oximetry Heart rate 86 /min 86 /min [facility] Diastolic blood 99 mm[Hg] 99 mm[Hg] [facility] pressure [facility] Systolic blood 168 mm[Hg] 168 mm[Hg] [facility] Body weight 109.689787 [address] [facility] Body temperature 36.620178 Kaylie 36.752460 [facility] Respiratory rate 20 /min 20 /min [facility] Oxygen 97 % 97 % [facility] saturation in Medical Arterial blood Center by Pulse oximetry Heart rate 88 /min 88 /min [facility] Body height 175.569852 cm 175.320444 cm [facility] Diastolic blood 104 mm[Hg] 104 mm[Hg] [facility] pressure [facility] Systolic blood 165 mm[Hg] 165 mm[Hg] [facility] [place] Body mass index 35.5 kg/m2 35.5 kg/m2 [facility] (BMI) [Ratio] [facility] Body temperature 36.305210 Kaylie 36.585701 [facility] Respiratory rate 20 /min 20 /min [facility] Oxygen 94 % 94 % [facility] saturation in Medical Arterial blood Center by Pulse oximetry Heart rate 89 /min 89 /min [facility] Diastolic blood 81 mm[Hg] 81 mm[Hg] [facility] pressure [facility] Systolic blood 137 mm[Hg] 137 mm[Hg] [facility] Body temperature 36.986082 Kaylie 36.763522 [facility] Respiratory rate 17 /min 17 /min [facility] Oxygen 98 % 98 % [facility] [place] saturation in Medical Arterial blood Center by Pulse oximetry Heart rate 74 /min 74 /min [facility] Diastolic blood 73 mm[Hg] 73 mm[Hg] [facility] pressure [facility] Systolic blood 135 mm[Hg] 135 mm[Hg] [facility] Body temperature 37.282148 Kaylie 37.010132 [facility] Respiratory rate 18 /min 18 /min [facility] Oxygen 99 % 99 % [facility] [place] saturation in Medical Arterial blood Center by Pulse oximetry Heart rate 93 /min 93 /min [facility] Diastolic blood 77 mm[Hg] 77 mm[Hg] [facility] pressure [facility] Systolic blood 141 mm[Hg] 141 mm[Hg] [facility] [place] Body temperature 37.050332 Kaylie 37.619325 [facility] Respiratory rate 18 /min 18 /min [facility] Oxygen 99 % 99 % [facility] [place] saturation in Medical Arterial blood Center by Pulse oximetry Heart rate 73 /min 73 /min [facility] Diastolic blood 85 mm[Hg] 85 mm[Hg] [facility] [place] Systolic blood 128 mm[Hg] 128 mm[Hg] [facility] [place] Body temperature 36.193920 Kaylie 36.267824 [facility] Respiratory rate 17 /min 17 /min [facility] Oxygen 99 % 99 % [facility] [place] saturation in Medical Arterial blood Center by Pulse oximetry Heart rate 85 /min 85 /min [facility] Diastolic blood 78 mm[Hg] 78 mm[Hg] [facility] [place] Systolic blood 132 mm[Hg] 132 mm[Hg] [facility] Body temperature 36.178822 Kaylie 36.163204 [facility] Respiratory rate 18 /min 18 /min [facility] Oxygen 98 % 98 % [facility] [place] saturation in Medical Arterial blood Center by Pulse oximetry Heart rate 82 /min 82 /min [facility] Diastolic blood 83 mm[Hg] 83 mm[Hg] [facility] Systolic blood 125 mm[Hg] 125 mm[Hg] [facility] [place] Body temperature 37.433499 Kaylie 37.557974 [facility] Respiratory rate 18 /min 18 /min [facility] Oxygen 97 % 97 % [facility] [place] saturation in Medical Arterial blood Center by Pulse oximetry Heart rate 101 /min 101 /min [facility] Diastolic blood 77 mm[Hg] 77 mm[Hg] [facility] Systolic blood 137 mm[Hg] 137 mm[Hg] [facility] Heart rate 88 /min 88 /min [facility] Diastolic blood 78 mm[Hg] 78 mm[Hg] [facility] pressure [facility] Systolic blood 144 mm[Hg] 144 mm[Hg] [facility] Body temperature 36.786764 Kaylie 36.538338 [facility] Respiratory rate 18 /min 18 /min [facility] Oxygen 97 % 97 % [facility] [place] saturation in Medical Arterial blood Center by Pulse oximetry Body temperature 37.951053 Kaylie 37.414084 [facility] Respiratory rate 18 /min 18 /min [facility] Oxygen 95 % 95 % [facility] [place] saturation in Medical Arterial blood Center by Pulse oximetry Heart rate 90 /min 90 /min [facility] Diastolic blood 92 mm[Hg] 92 mm[Hg] [facility] [place] Systolic blood 153 mm[Hg] 153 mm[Hg] [facility] Body temperature 37.586790 Kaylie 37.061109 [facility] Respiratory rate 18 /min 18 /min [facility] Oxygen 95 % 95 % [facility] saturation in Medical Arterial blood Center by Pulse oximetry Heart rate 96 /min 96 /min [facility] Diastolic blood 75 mm[Hg] 75 mm[Hg] [facility] [place] Systolic blood 127 mm[Hg] 127 mm[Hg] [facility] Body temperature 36.685607 Kaylie 36.766256 [facility] Respiratory rate 18 /min 18 /min [facility] Oxygen 96 % 96 % [facility] [place] saturation in Medical Arterial blood Center by Pulse oximetry Heart rate 96 /min 96 /min [facility] Diastolic blood 98 mm[Hg] 98 mm[Hg] [facility] Systolic blood 151 mm[Hg] 151 mm[Hg] [facility] Body temperature 36.383022 Kaylie 36.419681 [facility] Respiratory rate 17 /min 17 /min [facility] Oxygen 96 % 96 % [facility] [place] saturation in Medical Arterial blood Center by Pulse oximetry Heart rate 94 /min 94 /min [facility] Diastolic blood 74 mm[Hg] 74 mm[Hg] [facility] Systolic blood 138 mm[Hg] 138 mm[Hg] [facility] Respiratory rate 16 /min 16 /min [facility] Oxygen 98 % 98 % [facility] [place] saturation in Medical Arterial blood Center by Pulse oximetry Heart rate 91 /min 91 /min [facility] Diastolic blood 70 mm[Hg] 70 mm[Hg] [facility] pressure [facility] Systolic blood 130 mm[Hg] 130 mm[Hg] [facility] Body temperature 36.144452 Kaylie 36.288749 [facility] Respiratory rate 16 /min 16 /min [facility] Oxygen 97 % 97 % [facility] [place] saturation in Medical Arterial blood Center by Pulse oximetry Heart rate 91 /min 91 /min [facility] Diastolic blood 61 mm[Hg] 61 mm[Hg] [facility] Systolic blood 109 mm[Hg] 109 mm[Hg] [facility] Body temperature 36.566740 Kaylie 36.813561 [facility] Respiratory rate 17 /min 17 /min [facility] Oxygen 95 % 95 % [facility] [place] saturation in Medical Arterial blood Center by Pulse oximetry Heart rate 96 /min 96 /min [facility] Diastolic blood 50 mm[Hg] 50 mm[Hg] [facility] [place] Systolic blood 110 mm[Hg] 110 mm[Hg] [facility] Body temperature 36.492638 Kaylie 36.084370 [facility] Respiratory rate 18 /min 18 /min [facility] Oxygen 97 % 97 % [facility] [place] saturation in Medical Arterial blood Center by Pulse oximetry Heart rate 82 /min 82 /min [facility] Diastolic blood 70 mm[Hg] 70 mm[Hg] [facility] Systolic blood 120 mm[Hg] 120 mm[Hg] [facility] Body temperature 36.135307 Kaylie 36.141153 [facility] Respiratory rate 17 /min 17 /min [facility] Oxygen 98 % 98 % [facility] [place] saturation in Medical Arterial blood Center by Pulse oximetry Heart rate 76 /min 76 /min [facility] Diastolic blood 67 mm[Hg] 67 mm[Hg] [facility] [place] Systolic blood 154 mm[Hg] 154 mm[Hg] [facility] Body temperature 36.791032 Kaylie 36.287519 [facility] Respiratory rate 18 /min 18 /min [facility] Heart rate 90 /min 90 /min [facility] Diastolic blood 71 mm[Hg] 71 mm[Hg] [facility] pressure [facility] Systolic blood 140 mm[Hg] 140 mm[Hg] [facility] [place] Body temperature 36.424565 Kaylie 36.599414 [facility] Respiratory rate 17 /min 17 /min [facility] Oxygen 95 % 95 % [facility] [place] saturation in Medical Arterial blood Center by Pulse oximetry Heart rate 90 /min 90 /min [facility] Diastolic blood 77 mm[Hg] 77 mm[Hg] [facility] Systolic blood 137 mm[Hg] 137 mm[Hg] [facility] Body temperature 36.783253 Kaylie 36.441251 [facility] Respiratory rate 18 /min 18 /min [facility] Oxygen 98 % 98 % [place] saturation in Medical Arterial blood Center by Pulse oximetry Heart rate 76 /min 76 /min [facility] Diastolic blood 80 mm[Hg] 80 mm[Hg] [facility] [place] Systolic blood 124 mm[Hg] 124 mm[Hg] [facility] [place] Body temperature 36.611991 Kaylie 36.023383 [facility] Respiratory rate 18 /min 18 /min [facility] Oxygen 99 % 99 % [facility] [place] saturation in Medical Arterial blood Center by Pulse oximetry Heart rate 90 /min 90 /min [facility] Diastolic blood 77 mm[Hg] 77 mm[Hg] [facility] Systolic blood 149 mm[Hg] 149 mm[Hg] [facility] Body temperature 36.535512 Kaylie 36.150509 [facility] Respiratory rate 19 /min 19 /min [facility] Oxygen 99 % 99 % [facility] [place] saturation in Medical Arterial blood Center by Pulse oximetry Heart rate 88 /min 88 /min [facility] Diastolic blood 66 mm[Hg] 66 mm[Hg] [facility] Systolic blood 154 mm[Hg] 154 mm[Hg] [facility] Body temperature 36.323389 Kaylie 36.974817 [facility] Respiratory rate 18 /min 18 /min [facility] Oxygen 96 % 96 % [facility] [place] saturation in Medical Arterial blood Center by Pulse oximetry Heart rate 93 /min 93 /min [facility] Diastolic blood 76 mm[Hg] 76 mm[Hg] [facility] Systolic blood 144 mm[Hg] 144 mm[Hg] [facility] Body temperature 37.231426 Kaylie 37.889932 [facility] Respiratory rate 19 /min 19 /min [facility] Oxygen 95 % 95 % [facility] [place] saturation in Medical Arterial blood Center by Pulse oximetry Heart rate 90 /min 90 /min [facility] Diastolic blood 59 mm[Hg] 59 mm[Hg] [facility] [place] Systolic blood 133 mm[Hg] 133 mm[Hg] [facility] Body temperature 36.559403 Kaylie 36.357337 [facility] Respiratory rate 18 /min 18 /min [facility] Oxygen 97 % 97 % [facility] [place] saturation in Medical Arterial blood Center by Pulse oximetry Heart rate 88 /min 88 /min [facility] Diastolic blood 67 mm[Hg] 67 mm[Hg] [facility] [place] Systolic blood 148 mm[Hg] 148 mm[Hg] [facility] Body temperature 36.349762 Kaylie 36.671181 [facility] Respiratory rate 20 /min 20 /min [facility] Oxygen 94 % 94 % [facility] [place] saturation in Medical Arterial blood Center by Pulse oximetry Heart rate 88 /min 88 /min [facility] Diastolic blood 66 mm[Hg] 66 mm[Hg] [facility] [place] Systolic blood 135 mm[Hg] 135 mm[Hg] [facility] Body temperature 37.848820 Kaylie 37.732727 [facility] Respiratory rate 20 /min 20 /min [facility] Oxygen 94 % 94 % [facility] [place] saturation in Medical Arterial blood Center by Pulse oximetry Heart rate 84 /min 84 /min [facility] Diastolic blood 69 mm[Hg] 69 mm[Hg] [facility] Systolic blood 130 mm[Hg] 130 mm[Hg] [facility] Body weight 90.450271 kg 90.620667 kg [facility] Body height 175.567269 cm 175.874311 cm [facility] Body mass index 29.5 kg/m2 29.5 kg/m2 [facility] (BMI) [Ratio] [facility] Body temperature 36.768843 Kaylie 36.094116 [facility] Respiratory rate 17 /min 17 /min [facility] Oxygen 98 % 98 % [facility] [place] saturation in Medical Arterial blood Center by Pulse oximetry Heart rate 71 /min 71 /min [facility] Diastolic blood 76 mm[Hg] 76 mm[Hg] [facility] Systolic blood 136 mm[Hg] 136 mm[Hg] [facility] [place] Body temperature 36.221295 Kaylie 36.275942 [facility] Respiratory rate 18 /min 18 /min [facility] Oxygen 97 % 97 % [facility] [place] saturation in Medical Arterial blood Center by Pulse oximetry Heart rate 76 /min 76 /min [facility] Diastolic blood 76 mm[Hg] 76 mm[Hg] [facility] Systolic blood 124 mm[Hg] 124 mm[Hg] [facility] Body temperature 36.167149 Kaylie 36.475446 [facility] Respiratory rate 19 /min 19 /min [facility] Oxygen 97 % 97 % [facility] [place] saturation in Medical Arterial blood Center by Pulse oximetry Heart rate 97 /min 97 /min [facility] Diastolic blood 73 mm[Hg] 73 mm[Hg] [facility] pressure [facility] Systolic blood 118 mm[Hg] 118 mm[Hg] [facility] Body weight 104.905770 kg 104.538528 kg [facility] Body temperature 36.888123 Kaylie 36.106784 [facility] Respiratory rate 17 /min 17 /min [facility] Oxygen 96 % 96 % [facility] [place] saturation in Medical Arterial blood Center by Pulse oximetry Heart rate 95 /min 95 /min [facility] Body height 177.507132 cm 177.711129 cm [facility] Diastolic blood 81 mm[Hg] 81 mm[Hg] [facility] pressure [facility] Systolic blood 150 mm[Hg] 150 mm[Hg] [facility] Body mass index 33.0 kg/m2 33.0 kg/m2 [facility] (BMI) [Ratio] [facility] Body temperature 36.422446 Kaylie 36.838732 [facility] Respiratory rate 18 /min 18 /min [facility] Oxygen 97 % 97 % [facility] saturation in Medical Arterial blood Center by Pulse oximetry Heart rate 89 /min 89 /min [facility] Diastolic blood 75 mm[Hg] 75 mm[Hg] [facility] pressure [facility] Systolic blood 144 mm[Hg] 144 mm[Hg] [facility] Body temperature 36.356951 Kaylie 36.606443 [facility] Respiratory rate 18 /min 18 /min [facility] Oxygen 97 % 97 % [facility] saturation in Medical Arterial blood Center by Pulse oximetry Heart rate 71 /min 71 /min [facility] Diastolic blood 96 mm[Hg] 96 mm[Hg] [facility] [place] Systolic blood 136 mm[Hg] 136 mm[Hg] [facility] Heart rate 84 /min 84 /min [facility] Diastolic blood 83 mm[Hg] 83 mm[Hg] [facility] Systolic blood 132 mm[Hg] 132 mm[Hg] [facility] [facility] Respiratory rate 18 /min 18 /min [facility] Oxygen 97 % 97 % [facility] saturation in Medical Arterial blood Center by Pulse oximetry Body temperature 36.183483 Kaylie 36.984279 [facility] Respiratory rate 18 /min 18 /min [facility] Oxygen 97 % 97 % [facility] saturation in Medical Arterial blood Center by Pulse oximetry Heart rate 82 /min 82 /min [facility] Diastolic blood 82 mm[Hg] 82 mm[Hg] [facility] Systolic blood 138 mm[Hg] 138 mm[Hg] [facility] Body temperature 36.057784 Kaylie 36.711869 [facility] Respiratory rate 18 /min 18 /min [facility] Oxygen 96 % 96 % [facility] saturation in Medical Arterial blood Center by Pulse oximetry Heart rate 95 /min 95 /min [facility] Diastolic blood 84 mm[Hg] 84 mm[Hg] [facility] Systolic blood 155 mm[Hg] 155 mm[Hg] [facility] Body temperature 36.941951 Kaylie 36.562570 [facility] Respiratory rate 21 /min 21 /min [facility] Oxygen 98 % 98 % [facility] saturation in Medical Arterial blood Center by Pulse oximetry Heart rate 97 /min 97 /min [facility] Diastolic blood 79 mm[Hg] 79 mm[Hg] [facility] Systolic blood 162 mm[Hg] 162 mm[Hg] [facility] Body weight 90.122245 kg 90.144239 kg [facility] Body temperature 36.500311 Kaylie 36.015617 [facility] Respiratory rate 18 /min 18 /min [facility] Oxygen 96 % 96 % [place] saturation in [facility] Arterial blood Center by Pulse oximetry Heart rate 92 /min 92 /min [facility] Body height 177.702866 cm 177.756655 cm [facility] Diastolic blood 85 mm[Hg] 85 mm[Hg] [facility] Systolic blood 141 mm[Hg] 141 mm[Hg] [facility] Body mass index 28.6 kg/m2 28.6 kg/m2 [facility] (BMI) [Ratio] [facility] Center Body temperature 36.478285 Kaylie 36.935054 [facility] Respiratory rate 20 /min 20 /min [facility] Oxygen 94 % 94 % [facility] saturation in Medical Arterial blood Center by Pulse oximetry Heart rate 96 /min 96 /min [facility] Diastolic blood 85 mm[Hg] 85 mm[Hg] [facility] Systolic blood 125 mm[Hg] 125 mm[Hg] [facility] Body temperature 36.971852 Kaylie 36.863787 [facility] Respiratory rate 19 /min 19 /min [facility] Oxygen 93 % 93 % [facility] saturation in Medical Arterial blood Center by Pulse oximetry Heart rate 91 /min 91 /min [facility] Diastolic blood 74 mm[Hg] 74 mm[Hg] [facility] Systolic blood 132 mm[Hg] 132 mm[Hg] [facility] Body weight 95.921454 kg 95.843168 kg [facility] [place] Body temperature 36.224211 Kaylie 36.098246 [facility] Respiratory rate 17 /min 17 /min [facility] Oxygen 95 % 95 % [facility] saturation in Medical Arterial blood Center by Pulse oximetry Heart rate 86 /min 86 /min [facility] Body height 177.250552 cm 177.199086 cm [facility] Diastolic blood 72 mm[Hg] 72 mm[Hg] [facility] pressure Medical Center Systolic blood 123 mm[Hg] 123 mm[Hg] [facility] Body mass index 30.1 kg/m2 30.1 kg/m2 [facility] (BMI) [Ratio] [facility] Body temperature 36.046218 Kaylie 36.438708 [facility] Respiratory rate 16 /min 16 /min [facility] Oxygen 93 % 93 % [facility] saturation in Medical Arterial blood Center by Pulse oximetry Heart rate 103 /min 103 /min [facility] Diastolic blood 67 mm[Hg] 67 mm[Hg] [facility] Systolic blood 123 mm[Hg] 123 mm[Hg] [facility] Body temperature 36.963513 Kaylie 36.892775 [facility] Respiratory rate 18 /min 18 /min [facility] Oxygen 98 % 98 % [facility] saturation in Medical Arterial blood Center by Pulse oximetry Heart rate 76 /min 76 /min [facility] Diastolic blood 77 mm[Hg] 77 mm[Hg] [facility] Systolic blood 120 mm[Hg] 120 mm[Hg] [facility] Body temperature 36.967351 Kaylie 36.323744 [facility] Respiratory rate 18 /min 18 /min [facility] Oxygen 98 % 98 % [facility] saturation in Medical Arterial blood Center by Pulse oximetry Heart rate 76 /min 76 /min [facility] Diastolic blood 76 mm[Hg] 76 mm[Hg] [facility] Systolic blood 122 mm[Hg] 122 mm[Hg] [facility] Body temperature 35.120209 Kaylie 35.088232 [facility] Respiratory rate 17 /min 17 /min [facility] Oxygen 97 % 97 % [facility] saturation in Medical Arterial blood Center by Pulse oximetry Heart rate 86 /min 86 /min [facility] Diastolic blood 69 mm[Hg] 69 mm[Hg] [facility] pressure Medical Center Systolic blood 121 mm[Hg] 121 mm[Hg] [facility] Body temperature 37.777349 Kaylie 37.504083 [facility] Respiratory rate 16 /min 16 /min [facility] Oxygen 98 % 98 % [facility] saturation in Medical Arterial blood Center by Pulse oximetry Heart rate 80 /min 80 /min [facility] Diastolic blood 65 mm[Hg] 65 mm[Hg] [facility] pressure [facility] Center Systolic blood 116 mm[Hg] 116 mm[Hg] [facility] Respiratory rate 16 /min 16 /min [facility] Oxygen 97 % 97 % [facility] saturation in Medical Arterial blood Center by Pulse oximetry Heart rate 84 /min 84 /min [facility] Diastolic blood 69 mm[Hg] 69 mm[Hg] [facility] Systolic blood 115 mm[Hg] 115 mm[Hg] [facility] Body temperature 37.779810 Kaylie 37.968856 [facility] Oxygen 98 % 98 % [facility] saturation in Medical Arterial blood Center by Pulse oximetry Heart rate 90 /min 90 /min [facility] Diastolic blood 72 mm[Hg] 72 mm[Hg] [facility] pressure Medical Center Systolic blood 106 mm[Hg] 106 mm[Hg] [facility] Body temperature 36.225564 Kaylie 36.636240 [facility] Respiratory rate 19 /min 19 /min [facility] Oxygen 98 % 98 % [facility] saturation in Medical Arterial blood Center by Pulse oximetry Heart rate 86 /min 86 /min [facility] Diastolic blood 55 mm[Hg] 55 mm[Hg] [facility] pressure Medical Center Systolic blood 91 mm[Hg] 91 mm[Hg] [facility] Body temperature 37.340654 Kaylie 37.223473 [facility] Respiratory rate 18 /min 18 /min [facility] Oxygen 95 % 95 % [facility] saturation in Medical Arterial blood Center by Pulse oximetry Heart rate 95 /min 95 /min [facility] Diastolic blood 79 mm[Hg] 79 mm[Hg] [facility] Systolic blood 122 mm[Hg] 122 mm[Hg] [facility] Body weight 105.855820 kg 105.551227 kg [facility] Body temperature 37.451121 Kaylie 37.887054 [facility] Respiratory rate 20 /min 20 /min [facility] Oxygen 94 % 94 % [facility] saturation in Medical Arterial blood Center by Pulse oximetry Heart rate 83 /min 83 /min [facility] Body height 175.783625 cm 175.205189 cm [facility] Diastolic blood 85 mm[Hg] 85 mm[Hg] [facility] Systolic blood 134 mm[Hg] 134 mm[Hg] [facility] Body mass index 34.2 kg/m2 34.2 kg/m2 [facility] (BMI) [Ratio] [facility] Center Body weight 81.041654 kg 81.864505 kg [facility] Body temperature 36.421917 Kaylie 36.174461 [facility] Respiratory rate 18 /min 18 /min [facility] Oxygen 96 % 96 % [facility] saturation in Medical Arterial blood Center by Pulse oximetry Heart rate 86 /min 86 /min [facility] Body height 172.620266 cm 172.333280 cm [facility] Diastolic blood 85 mm[Hg] 85 mm[Hg] [facility] Systolic blood 138 mm[Hg] 138 mm[Hg] [facility] Body mass index 27.3 kg/m2 27.3 kg/m2 [facility] (BMI) [Ratio] [facility] Body temperature 36.005316 Kaylie 36.737063 [facility] Respiratory rate 17 /min 17 /min [facility] Oxygen 98 % 98 % [facility] [place] saturation in Medical Arterial blood Center by Pulse oximetry Heart rate 81 /min 81 /min [facility] Diastolic blood 71 mm[Hg] 71 mm[Hg] [facility] Systolic blood 128 mm[Hg] 128 mm[Hg] [facility] Body temperature 36.378369 Kaylie 36.178402 [facility] Respiratory rate 17 /min 17 /min [facility] Oxygen 95 % 95 % [facility] saturation in Medical Arterial blood Center by Pulse oximetry Heart rate 101 /min 101 /min [facility] Diastolic blood 78 mm[Hg] 78 mm[Hg] [facility] pressure [facility] Center Systolic blood 128 mm[Hg] 128 mm[Hg] [facility] Body temperature 41.177338 Kaylie 41.723593 [facility] Respiratory rate 18 /min 18 /min [facility] Oxygen 92 % 92 % [facility] [place] saturation in Medical Arterial blood Center by Pulse oximetry Heart rate 117 /min 117 /min [facility] Diastolic blood 77 mm[Hg] 77 mm[Hg] [facility] pressure [facility] Center Systolic blood 130 mm[Hg] 130 mm[Hg] [facility] [place] Body temperature 37.566863 Kaylie 37.758465 [facility] Respiratory rate 18 /min 18 /min [facility] Oxygen 98 % 98 % [facility] saturation in Medical Arterial blood Center by Pulse oximetry Heart rate 89 /min 89 /min [facility] Diastolic blood 85 mm[Hg] 85 mm[Hg] [facility] pressure Medical Center Systolic blood 142 mm[Hg] 142 mm[Hg] [facility] Body weight 110.255943 kg 110.438560 kg [facility] [place] Body temperature 36.750511 Kaylie 36.324412 [facility] Respiratory rate 18 /min 18 /min [facility] Oxygen 98 % 98 % [facility] [place] saturation in Medical Arterial blood Center by Pulse oximetry Heart rate 88 /min 88 /min [facility] Body height 182.308470 cm 182.732806 cm [facility] Diastolic blood 98 mm[Hg] 98 mm[Hg] [facility] pressure [facility] Center Systolic blood 138 mm[Hg] 138 mm[Hg] [facility] Body mass index 32.8 kg/m2 32.8 kg/m2 [facility] (BMI) [Ratio] [facility] Center Body temperature 36.243436 Kaylie 36.033026 [facility] Respiratory rate 17 /min 17 /min [facility] Oxygen 95 % 95 % [facility] [place] saturation in Medical Arterial blood Center by Pulse oximetry Heart rate 96 /min 96 /min [facility] Diastolic blood 74 mm[Hg] 74 mm[Hg] [facility] pressure [facility] Center Systolic blood 126 mm[Hg] 126 mm[Hg] [facility] Body temperature 36.892926 Kaylie 36.034624 [facility] Respiratory rate 18 /min 18 /min [facility] Oxygen 100 % 100 % [facility] saturation in Medical Arterial blood Center by Pulse oximetry Heart rate 85 /min 85 /min [facility] Diastolic blood 80 mm[Hg] 80 mm[Hg] [facility] pressure [facility] Center Systolic blood 146 mm[Hg] 146 mm[Hg] [facility] Body temperature 36.957700 Kaylie 36.487834 [facility] Respiratory rate 18 /min 18 /min [facility] Oxygen 98 % 98 % [facility] [place] saturation in Medical Arterial blood Center by Pulse oximetry Heart rate 80 /min 80 /min [facility] Diastolic blood 60 mm[Hg] 60 mm[Hg] [facility] pressure [facility] Center Systolic blood 96 mm[Hg] 96 mm[Hg] [facility] [place] Body temperature 36.856189 Kaylie 36.354184 [facility] Respiratory rate 18 /min 18 /min [facility] Oxygen 98 % 98 % [facility] [place] saturation in Medical Arterial blood Center by Pulse oximetry Heart rate 83 /min 83 /min [facility] Diastolic blood 68 mm[Hg] 68 mm[Hg] [facility] pressure [facility] Center Systolic blood 128 mm[Hg] 128 mm[Hg] [facility] Body mass index 29.8 kg/m2 29.8 kg/m2 [facility] (BMI) [Ratio] [facility] Center Body weight 100.863021 kg 100.466347 kg [facility] Body temperature 36.509627 Kaylie 36.885218 [facility] Respiratory rate 18 /min 18 /min [facility] Oxygen 98 % 98 % [facility] [place] saturation in Medical Arterial blood Center by Pulse oximetry Heart rate 84 /min 84 /min [facility] Body height 182.213552 cm 182.114914 cm [facility] Diastolic blood 88 mm[Hg] 88 mm[Hg] [facility] Systolic blood 148 mm[Hg] 148 mm[Hg] [facility] [place] Body temperature 36.617634 Kaylie 36.910835 [facility] Respiratory rate 17 /min 17 /min [facility] Oxygen 99 % 99 % [facility] [place] saturation in Medical Arterial blood Center by Pulse oximetry Heart rate 80 /min 80 /min [facility] Diastolic blood 79 mm[Hg] 79 mm[Hg] [facility] pressure [facility] Center Systolic blood 126 mm[Hg] 126 mm[Hg] [facility] Body temperature 36.420263 Kaylie 36.218894 [facility] Respiratory rate 17 /min 17 /min [facility] Oxygen 99 % 99 % [place] saturation in Medical Arterial blood Center by Pulse oximetry Heart rate 85 /min 85 /min [facility] Diastolic blood 74 mm[Hg] 74 mm[Hg] [facility] [place] Systolic blood 136 mm[Hg] 136 mm[Hg] [facility] Body temperature 36.321363 Kaylie 36.584811 [facility] Respiratory rate 18 /min 18 /min [facility] Oxygen 98 % 98 % [facility] [place] saturation in Medical Arterial blood Center by Pulse oximetry Heart rate 97 /min 97 /min [facility] Diastolic blood 70 mm[Hg] 70 mm[Hg] [facility] Systolic blood 126 mm[Hg] 126 mm[Hg] [facility] [place] Body temperature 36.412066 Kaylie 36.318442 [facility] Respiratory rate 19 /min 19 /min [facility] Oxygen 97 % 97 % [facility] [place] saturation in Medical Arterial blood Center by Pulse oximetry Heart rate 79 /min 79 /min [facility] Diastolic blood 78 mm[Hg] 78 mm[Hg] [facility] Systolic blood 135 mm[Hg] 135 mm[Hg] [facility] Respiratory rate 18 /min 18 /min [facility] Oxygen 93 % 93 % [facility] [place] saturation in Medical Arterial blood Center by Pulse oximetry Heart rate 89 /min 89 /min [facility] Body height 177.795775 cm 177.216635 cm [facility] Diastolic blood 75 mm[Hg] 75 mm[Hg] [facility] Systolic blood 104 mm[Hg] 104 mm[Hg] [facility] Body mass index 37.9 kg/m2 37.9 kg/m2 [facility] (BMI) [Ratio] Medical Center Body weight 120.900826 kg 120.924615 kg [facility] Body temperature 36.555135 Kaylie 36.721071 [facility] Body temperature 36.002570 Kaylie 36.094039 [facility] Respiratory rate 17 /min 17 /min [facility] Oxygen 95 % 95 % [facility] [place] saturation in Medical Arterial blood Center by Pulse oximetry Heart rate 94 /min 94 /min [facility] Diastolic blood 62 mm[Hg] 62 mm[Hg] [facility] Systolic blood 115 mm[Hg] 115 mm[Hg] [facility] Body temperature 36.373195 Kaylie 36.837155 [facility] Respiratory rate 18 /min 18 /min [facility] Oxygen 96 % 96 % [facility] [place] saturation in Medical Arterial blood Center by Pulse oximetry Heart rate 91 /min 91 /min [facility] Diastolic blood 77 mm[Hg] 77 mm[Hg] [facility] Systolic blood 131 mm[Hg] 131 mm[Hg] [facility] Body temperature 37.804600 Kaylie 37.869684 [facility] Respiratory rate 19 /min 19 /min [facility] Oxygen 97 % 97 % [facility] [place] saturation in Medical Arterial blood Center by Pulse oximetry Heart rate 105 /min 105 /min [facility] Diastolic blood 74 mm[Hg] 74 mm[Hg] [facility] Systolic blood 122 mm[Hg] 122 mm[Hg] [facility] Body temperature 37.037884 Kaylie 37.913695 [facility] Respiratory rate 20 /min 20 /min [facility] Oxygen 93 % 93 % [facility] [place] saturation in Medical Arterial blood Center by Pulse oximetry Heart rate 117 /min 117 /min [facility] Diastolic blood 58 mm[Hg] 58 mm[Hg] [facility] pressure [facility] Center Systolic blood 108 mm[Hg] 108 mm[Hg] [facility] [place] Body temperature 36.081882 Kaylie 36.987778 [facility] Oxygen 90 % 90 % [facility] [place] saturation in Medical Arterial blood Center by Pulse oximetry Heart rate 112 /min 112 /min [facility] Diastolic blood 54 mm[Hg] 54 mm[Hg] [facility] pressure [facility] Center Systolic blood 117 mm[Hg] 117 mm[Hg] [facility] Body weight 117.721930 kg 117.4364[address] [facility] Body temperature 36.150928 Kaylie 36.139826 [facility] Respiratory rate 18 /min 18 /min [facility] Oxygen 99 % 99 % [place] saturation in Medical Arterial blood Center by Pulse oximetry Heart rate 89 /min 89 /min [facility] Body height 182.639196 cm 182.305459 cm [facility] Diastolic blood 84 mm[Hg] 84 mm[Hg] [facility] pressure [facility] Center Systolic blood 142 mm[Hg] 142 mm[Hg] [facility] Body mass index 35.2 kg/m2 35.2 kg/m2 [facility] (BMI) [Ratio] [facility] Center Body temperature 36.880648 Kaylie 36.179288 [facility] Respiratory rate 16 /min 16 /min [facility] Oxygen 98 % 98 % [facility] [place] saturation in Medical Arterial blood Center by Pulse oximetry Heart rate 79 /min 79 /min [facility] Diastolic blood 94 mm[Hg] 94 mm[Hg] [facility] pressure [facility] Center Systolic blood 149 mm[Hg] 149 mm[Hg] [facility] Body temperature 36.530820 Kaylie 36.260118 [facility] Respiratory rate 16 /min 16 /min [facility] Oxygen 95 % 95 % [facility] [place] saturation in Medical Arterial blood Center by Pulse oximetry Heart rate 83 /min 83 /min [facility] Diastolic blood 74 mm[Hg] 74 mm[Hg] [facility] Systolic blood 156 mm[Hg] 156 mm[Hg] [facility] Body temperature 36.067460 Kaylie 36.361573 [facility] Respiratory rate 20 /min 20 /min [facility] Oxygen 96 % 96 % [place] saturation in Medical Arterial blood Center by Pulse oximetry Heart rate 85 /min 85 /min [facility] Diastolic blood 83 mm[Hg] 83 mm[Hg] [facility] pressure [facility] Center Systolic blood 142 mm[Hg] 142 mm[Hg] [facility] Body temperature 36.912310 Kaylie 36.623719 [facility] Respiratory rate 20 /min 20 /min [facility] Oxygen 97 % 97 % [place] saturation in Medical Arterial blood Center by Pulse oximetry Heart rate 107 /min 107 /min [facility] Diastolic blood 104 mm[Hg] 104 mm[Hg] [facility] Systolic blood 164 mm[Hg] 164 mm[Hg] [facility] [place] Body temperature 36.788299 Kaylie 36.449009 [facility] Respiratory rate 20 /min 20 /min [facility] Oxygen 97 % 97 % [place] saturation in Medical Arterial blood Center by Pulse oximetry Heart rate 90 /min 90 /min [facility] Diastolic blood 78 mm[Hg] 78 mm[Hg] [facility] Systolic blood 140 mm[Hg] 140 mm[Hg] [facility] [place] Body weight 99.905464 kg 99.184089 kg [facility] Body temperature 36.303081 Kaylie 36.675252 [facility] Respiratory rate 17 /min 17 /min [facility] Oxygen 95 % 95 % [place] saturation in Medical Arterial blood Center by Pulse oximetry Heart rate 92 /min 92 /min [facility] Body height 177.212014 cm 177.441322 cm [facility] Diastolic blood 78 mm[Hg] 78 mm[Hg] [facility] pressure [facility] Center Systolic blood 138 mm[Hg] 138 mm[Hg] [facility] Body mass index 31.5 kg/m2 31.5 kg/m2 [facility] (BMI) [Ratio] [facility] Body temperature 36.543106 Kaylie 36.582922 [facility] Respiratory rate 17 /min 17 /min [facility] Oxygen 98 % 98 % [facility] [place] saturation in Medical Arterial blood Center by Pulse oximetry Heart rate 75 /min 75 /min [facility] Diastolic blood 68 mm[Hg] 68 mm[Hg] [facility] pressure [facility] Center Systolic blood 129 mm[Hg] 129 mm[Hg] [facility] Body temperature 36.281670 Kaylie 36.240582 [facility] Respiratory rate 17 /min 17 /min [facility] Oxygen 99 % 99 % [facility] [place] saturation in Medical Arterial blood Center by Pulse oximetry Heart rate 81 /min 81 /min [facility] Diastolic blood 79 mm[Hg] 79 mm[Hg] [facility] Systolic blood 143 mm[Hg] 143 mm[Hg] [facility] Body temperature 36.927188 Kaylie 36.845986 [facility] Respiratory rate 17 /min 17 /min [facility] Oxygen 99 % 99 % [facility] [place] saturation in Medical Arterial blood Center by Pulse oximetry Heart rate 88 /min 88 /min [facility] Diastolic blood 76 mm[Hg] 76 mm[Hg] [facility] Systolic blood 145 mm[Hg] 145 mm[Hg] [facility] Body temperature 36.583589 Kaylie 36.591208 [facility] Respiratory rate 18 /min 18 /min [facility] Oxygen 98 % 98 % [facility] [place] saturation in Medical Arterial blood Center by Pulse oximetry Heart rate 76 /min 76 /min [facility] Diastolic blood 75 mm[Hg] 75 mm[Hg] [facility] Systolic blood 122 mm[Hg] 122 mm[Hg] [facility] Body temperature 37.062515 Kaylie 37.462528 [facility] Respiratory rate 18 /min 18 /min [facility] Oxygen 97 % 97 % [facility] [place] saturation in Medical Arterial blood Center by Pulse oximetry Heart rate 89 /min 89 /min [facility] Diastolic blood 78 mm[Hg] 78 mm[Hg] [facility] Systolic blood 146 mm[Hg] 146 mm[Hg] [facility] Body temperature 36.192478 Kaylie 36.847276 [facility] Respiratory rate 18 /min 18 /min [facility] Oxygen 98 % 98 % [facility] [place] saturation in Medical Arterial blood Center by Pulse oximetry Heart rate 82 /min 82 /min [facility] Diastolic blood 80 mm[Hg] 80 mm[Hg] [facility] [facility] Systolic blood 134 mm[Hg] 134 mm[Hg] [facility] Body temperature 37.174859 Kaylie 37.013672 [facility] Respiratory rate 18 /min 18 /min [facility] Oxygen 99 % 99 % [place] saturation in Medical Arterial blood Center by Pulse oximetry Heart rate 86 /min 86 /min [facility] Diastolic blood 85 mm[Hg] 85 mm[Hg] [facility] [place] Systolic blood 142 mm[Hg] 142 mm[Hg] [facility] [place] Body weight 119.402900 kg 119.720171 kg [facility] Body temperature 36.828342 Kaylie 36.364660 [facility] Respiratory rate 18 /min 18 /min [facility] Oxygen 97 % 97 % [place] saturation in Medical Arterial blood Center by Pulse oximetry Heart rate 83 /min 83 /min [facility] Diastolic blood 69 mm[Hg] 69 mm[Hg] [facility] Systolic blood 115 mm[Hg] 115 mm[Hg] [facility] [place] Body weight 120.101814 kg 120.091397 kg [facility] Body temperature 37.117504 Kaylie 37.502411 [facility] Respiratory rate 18 /min 18 /min [facility] Oxygen 98 % 98 % [place] saturation in Medical Arterial blood Center by Pulse oximetry Heart rate 88 /min 88 /min [facility] Body height 182.294231 cm 182.112791 cm [facility] [place] Diastolic blood 88 mm[Hg] 88 mm[Hg] [facility] Systolic blood 148 mm[Hg] 148 mm[Hg] [facility] Body mass index 35.8 kg/m2 35.8 kg/m2 [facility] (BMI) [Ratio] [facility] Body temperature 36.863956 Kaylie 36.339682 [facility] Respiratory rate 17 /min 17 /min [facility] Oxygen 97 % 97 % [place] saturation in Medical Arterial blood Center by Pulse oximetry Heart rate 75 /min 75 /min [facility] Diastolic blood 71 mm[Hg] 71 mm[Hg] [facility] pressure [facility] Center Systolic blood 145 mm[Hg] 145 mm[Hg] [facility] Body temperature 36.816905 Kaylie 36.724305 [facility] Respiratory rate 19 /min 19 /min [facility] Oxygen 97 % 97 % [facility] [place] saturation in Medical Arterial blood Center by Pulse oximetry Heart rate 88 /min 88 /min [facility] Diastolic blood 76 mm[Hg] 76 mm[Hg] [facility] Systolic blood 150 mm[Hg] 150 mm[Hg] [facility] Body temperature 36.233980 Kaylie 36.485793 [facility] Respiratory rate 17 /min 17 /min [facility] Oxygen 98 % 98 % [facility] [place] saturation in Medical Arterial blood Center by Pulse oximetry Heart rate 71 /min 71 /min [facility] Diastolic blood 68 mm[Hg] 68 mm[Hg] [facility] Systolic blood 129 mm[Hg] 129 mm[Hg] [facility] Body temperature 36.193398 Kaylie 36.531758 [facility] Respiratory rate 17 /min 17 /min [facility] Oxygen 97 % 97 % [facility] [place] saturation in Medical Arterial blood Center by Pulse oximetry Heart rate 75 /min 75 /min [facility] Diastolic blood 62 mm[Hg] 62 mm[Hg] [facility] Systolic blood 133 mm[Hg] 133 mm[Hg] [facility] Body temperature 36.501956 Kaylie 36.808403 [facility] Respiratory rate 17 /min 17 /min [facility] Oxygen 99 % 99 % [facility] [place] saturation in Medical Arterial blood Center by Pulse oximetry Heart rate 80 /min 80 /min [facility] Diastolic blood 92 mm[Hg] 92 mm[Hg] [facility] pressure [facility] Center Systolic blood 144 mm[Hg] 144 mm[Hg] [facility] [place] Body temperature 36.841995 Kaylie 36.188253 [facility] Respiratory rate 18 /min 18 /min [facility] Oxygen 97 % 97 % [facility] [place] saturation in Medical Arterial blood Center by Pulse oximetry Heart rate 89 /min 89 /min [facility] Diastolic blood 88 mm[Hg] 88 mm[Hg] [facility] [place] Systolic blood 148 mm[Hg] 148 mm[Hg] [facility] [place] Body temperature 36.703464 Kaylie 36.345450 [facility] Respiratory rate 17 /min 17 /min [facility] Oxygen 97 % 97 % [place] saturation in Medical Arterial blood Center by Pulse oximetry Heart rate 81 /min 81 /min [facility] Diastolic blood 79 mm[Hg] 79 mm[Hg] [facility] [place] Systolic blood 133 mm[Hg] 133 mm[Hg] [facility] [place] Body temperature 36.631223 Kaylie 36.546883 [facility] Respiratory rate 17 /min 17 /min [facility] Oxygen 98 % 98 % [place] saturation in Medical Arterial blood Center by Pulse oximetry Heart rate 87 /min 87 /min [facility] Diastolic blood 88 mm[Hg] 88 mm[Hg] [facility] [place] Systolic blood 136 mm[Hg] 136 mm[Hg] [facility] Body temperature 36.922878 Kaylie 36.674991 [facility] Respiratory rate 18 /min 18 /min [facility] Oxygen 97 % 97 % [facility] [place] saturation in Medical Arterial blood Center by Pulse oximetry Heart rate 95 /min 95 /min [facility] Diastolic blood 84 mm[Hg] 84 mm[Hg] [facility] Systolic blood 149 mm[Hg] 149 mm[Hg] [facility] [place] Body temperature 36.370533 Kaylie 36.929353 [facility] Respiratory rate 17 /min 17 /min [facility] Oxygen 99 % 99 % [place] saturation in Medical Arterial blood Center by Pulse oximetry Heart rate 81 /min 81 /min [facility] Diastolic blood 76 mm[Hg] 76 mm[Hg] [facility] Systolic blood 124 mm[Hg] 124 mm[Hg] [facility] Body weight 110.371572 kg 110.455101 kg [facility] Body temperature 36.606802 Kaylie 36.270622 [facility] Respiratory rate 18 /min 18 /min [facility] Oxygen 98 % 98 % [facility] [place] saturation in Medical Arterial blood Center by Pulse oximetry Heart rate 78 /min 78 /min [facility] Body height 185.088098 cm 185.097219 cm [facility] Diastolic blood 78 mm[Hg] 78 mm[Hg] [facility] Systolic blood 138 mm[Hg] 138 mm[Hg] [facility] Body mass index 31.9 kg/m2 31.9 kg/m2 [facility] (BMI) [Ratio] [facility] Body weight 113.636057 kg 113.160893 kg [facility] Body temperature 37.730653 Kaylie 37.434095 [facility] Respiratory rate 18 /min 18 /min [facility] Oxygen 100 % 100 % [facility] [place] saturation in Medical Arterial blood Center by Pulse oximetry Heart rate 95 /min 95 /min [facility] Body height 175.431858 cm 175.735384 cm [facility] Diastolic blood 83 mm[Hg] 83 mm[Hg] [facility] Systolic blood 148 mm[Hg] 148 mm[Hg] [facility] Body mass index 36.9 kg/m2 36.9 kg/m2 [facility] (BMI) [Ratio] [facility] Body weight 105.426211 kg 105.351381 kg [facility] Body temperature 36.087866 Kaylie 36.650339 [facility] Respiratory rate 18 /min 18 /min [facility] Oxygen 93 % 93 % [place] saturation in Medical Arterial blood Center by Pulse oximetry Heart rate 88 /min 88 /min [facility] Body height 173.120192 cm 173.827140 cm [facility] Diastolic blood 88 mm[Hg] 88 mm[Hg] [facility] pressure [facility] Center Systolic blood 140 mm[Hg] 140 mm[Hg] [facility] Center Body mass index 35.0 kg/m2 35.0 kg/m2 [facility] (BMI) [Ratio] [facility] Body temperature 37.779650 Kaylie 37.387223 [facility] Respiratory rate 18 /min 18 /min [facility] Oxygen 95 % 95 % [place] saturation in Medical Arterial blood Center by Pulse oximetry Heart rate 97 /min 97 /min [facility] Diastolic blood 78 mm[Hg] 78 mm[Hg] [facility] pressure [facility] Center Systolic blood 132 mm[Hg] 132 mm[Hg] [facility] [place] Body temperature 37.752900 Kaylie 37.228249 [facility] Respiratory rate 18 /min 18 /min [facility] Oxygen 95 % 95 % [place] saturation in Medical Arterial blood Center by Pulse oximetry Heart rate 96 /min 96 /min [facility] Diastolic blood 77 mm[Hg] 77 mm[Hg] [facility] Systolic blood 129 mm[Hg] 129 mm[Hg] [facility] Systolic blood 101 mm[Hg] 101 mm[Hg] [facility] Body temperature 37.610498 Kaylie 37.402403 [facility] Respiratory rate 17 /min 17 /min [facility] Oxygen 95 % 95 % [place] saturation in Medical Arterial blood Center by Pulse oximetry Heart rate 96 /min 96 /min [facility] Diastolic blood 57 mm[Hg] 57 mm[Hg] [facility] Body temperature 36.309956 Kaylie 36.063558 [facility] Respiratory rate 17 /min 17 /min [facility] Oxygen 98 % 98 % [place] saturation in Medical Arterial blood Center by Pulse oximetry Heart rate 71 /min 71 /min [facility] Diastolic blood 68 mm[Hg] 68 mm[Hg] [facility] Systolic blood 137 mm[Hg] 137 mm[Hg] [facility] Body temperature 36.362908 Kaylie 36.556656 [facility] Respiratory rate 17 /min 17 /min [facility] Oxygen 98 % 98 % [facility] [place] saturation in Medical Arterial blood Center by Pulse oximetry Heart rate 73 /min 73 /min [facility] Diastolic blood 62 mm[Hg] 62 mm[Hg] [facility] Center Systolic blood 133 mm[Hg] 133 mm[Hg] [facility] Body temperature 36.215871 Kaylie 36.880113 [facility] Respiratory rate 18 /min 18 /min [facility] Oxygen 99 % 99 % [facility] [place] saturation in Medical Arterial blood Center by Pulse oximetry Heart rate 78 /min 78 /min [facility] Diastolic blood 81 mm[Hg] 81 mm[Hg] [facility] Systolic blood 158 mm[Hg] 158 mm[Hg] [facility] Body weight 150.360264 kg 150.898262 kg [facility] [place] Body temperature 36.829646 Kaylie 36.898688 [facility] Respiratory rate 16 /min 16 /min [facility] Oxygen 98 % 98 % [facility] [place] saturation in Medical Arterial blood Center by Pulse oximetry Heart rate 93 /min 93 /min [facility] Body height 177.541108 cm 177.909158 cm [facility] Diastolic blood 92 mm[Hg] 92 mm[Hg] [facility] Center Systolic blood 140 mm[Hg] 140 mm[Hg] [facility] Body mass index 47.4 kg/m2 47.4 kg/m2 [facility] (BMI) [Ratio] [facility] Body weight 68.069170 kg 68.246158 kg [facility] Body temperature 36.390908 Kaylie 36.454092 [facility] Respiratory rate 18 /min 18 /min [facility] Oxygen 93 % 93 % [place] saturation in Medical Arterial blood Center by Pulse oximetry Heart rate 93 /min 93 /min [facility] Diastolic blood 87 mm[Hg] 87 mm[Hg] [facility] Center Systolic blood 160 mm[Hg] 160 mm[Hg] [facility] Body temperature 36.309017 Kaylie 36.846242 [facility] Respiratory rate 19 /min 19 /min [facility] Oxygen 97 % 97 % [place] saturation in Medical Arterial blood Center by Pulse oximetry Heart rate 88 /min 88 /min [facility] Diastolic blood 80 mm[Hg] 80 mm[Hg] [facility] Center Systolic blood 150 mm[Hg] 150 mm[Hg] [facility] Body temperature 36.516060 Kaylie 36.634576 [facility] Respiratory rate 17 /min 17 /min [facility] Oxygen 97 % 97 % [place] saturation in Medical Arterial blood Center by Pulse oximetry Heart rate 75 /min 75 /min [facility] Diastolic blood 68 mm[Hg] 68 mm[Hg] [facility] Systolic blood 134 mm[Hg] 134 mm[Hg] [facility] [place] Body temperature 36.831946 Kaylie 36.704686 [facility] Respiratory rate 18 /min 18 /min [facility] Oxygen 96 % 96 % [facility] [place] saturation in Medical Arterial blood Center by Pulse oximetry Heart rate 85 /min 85 /min [facility] Diastolic blood 82 mm[Hg] 82 mm[Hg] [facility] Systolic blood 138 mm[Hg] 138 mm[Hg] [facility] Body temperature 36.542099 Kaylie 36.817829 [facility] Respiratory rate 18 /min 18 /min [facility] Oxygen 97 % 97 % [facility] [place] saturation in Medical Arterial blood Center by Pulse oximetry Heart rate 88 /min 88 /min [facility] Diastolic blood 72 mm[Hg] 72 mm[Hg] [facility] Systolic blood 137 mm[Hg] 137 mm[Hg] [facility] Body temperature 37.958809 Kaylie 37.106477 [facility] Respiratory rate 18 /min 18 /min [facility] Oxygen 93 % 93 % [facility] [place] saturation in Medical Arterial blood Center by Pulse oximetry Heart rate 94 /min 94 /min [facility] Diastolic blood 70 mm[Hg] 70 mm[Hg] [facility] Center Systolic blood 132 mm[Hg] 132 mm[Hg] [facility] Body temperature 36.293350 Kaylie 36.435848 [facility] Respiratory rate 18 /min 18 /min [facility] Oxygen 97 % 97 % [facility] [place] saturation in Medical Arterial blood Center by Pulse oximetry Heart rate 76 /min 76 /min [facility] Diastolic blood 76 mm[Hg] 76 mm[Hg] [facility] Center Systolic blood 144 mm[Hg] 144 mm[Hg] [facility] Body temperature 36.887293 Kaylie 36.336964 [facility] Respiratory rate 19 /min 19 /min [facility] Oxygen 97 % 97 % [facility] [place] saturation in Medical Arterial blood Center by Pulse oximetry Heart rate 77 /min 77 /min [facility] Diastolic blood 86 mm[Hg] 86 mm[Hg] [facility] Systolic blood 153 mm[Hg] 153 mm[Hg] [facility] Body temperature 36.122812 Kaylie 36.955831 [facility] Respiratory rate 17 /min 17 /min [facility] Oxygen 98 % 98 % [facility] [place] saturation in Medical Arterial blood Center by Pulse oximetry Heart rate 75 /min 75 /min [facility] Diastolic blood 75 mm[Hg] 75 mm[Hg] [facility] Systolic blood 129 mm[Hg] 129 mm[Hg] [facility] Body temperature 37.404525 Kaylie 37.832998 [facility] Respiratory rate 18 /min 18 /min [facility] Oxygen 97 % 97 % [facility] [place] saturation in Medical Arterial blood Center by Pulse oximetry Heart rate 76 /min 76 /min [facility] Diastolic blood 77 mm[Hg] 77 mm[Hg] [facility] Systolic blood 130 mm[Hg] 130 mm[Hg] [facility] Body temperature 36.431725 Kaylie 36.616169 [facility] Respiratory rate 17 /min 17 /min [facility] Oxygen 98 % 98 % [place] saturation in Medical Arterial blood Center by Pulse oximetry Heart rate 78 /min 78 /min [facility] Diastolic blood 68 mm[Hg] 68 mm[Hg] [facility] Systolic blood 129 mm[Hg] 129 mm[Hg] [facility] Body temperature 36.184327 Kaylie 36.664302 [facility] Respiratory rate 19 /min 19 /min [facility] Oxygen 98 % 98 % [place] saturation in Medical Arterial blood Center by Pulse oximetry Heart rate 92 /min 92 /min [facility] Diastolic blood 64 mm[Hg] 64 mm[Hg] [facility] Systolic blood 125 mm[Hg] 125 mm[Hg] [facility] [place] Body temperature 36.293403 Kaylie 36.430482 [facility] Respiratory rate 20 /min 20 /min [facility] Oxygen 98 % 98 % [facility] [place] saturation in Medical Arterial blood Center by Pulse oximetry Heart rate 93 /min 93 /min [facility] Diastolic blood 92 mm[Hg] 92 mm[Hg] [facility] Systolic blood 150 mm[Hg] 150 mm[Hg] [facility] Body temperature 36.705104 Kaylie 36.125144 [facility] Respiratory rate 18 /min 18 /min [facility] Oxygen 97 % 97 % [place] saturation in Medical Arterial blood Center by Pulse oximetry Heart rate 79 /min 79 /min [facility] Diastolic blood 78 mm[Hg] 78 mm[Hg] [facility] Systolic blood 138 mm[Hg] 138 mm[Hg] [facility] Body temperature 36.605819 Kaylie 36.112889 [facility] Respiratory rate 17 /min 17 /min [facility] Oxygen 95 % 95 % [place] saturation in Medical Arterial blood Center by Pulse oximetry Heart rate 72 /min 72 /min [facility] Diastolic blood 67 mm[Hg] 67 mm[Hg] [facility] Center Systolic blood 134 mm[Hg] 134 mm[Hg] [facility] [place] Body temperature 36.287861 Kaylie 36.413948 [facility] Respiratory rate 19 /min 19 /min [facility] Oxygen 95 % 95 % [place] saturation in Medical Arterial blood Center by Pulse oximetry Heart rate 68 /min 68 /min [facility] Diastolic blood 68 mm[Hg] 68 mm[Hg] [facility] Systolic blood 144 mm[Hg] 144 mm[Hg] [facility] Body temperature 36.433458 Kaylie 36.958776 [facility] Respiratory rate 17 /min 17 /min [facility] Oxygen 96 % 96 % [place] saturation in Medical Arterial blood Center by Pulse oximetry Heart rate 78 /min 78 /min [facility] Diastolic blood 76 mm[Hg] 76 mm[Hg] [facility] Systolic blood 140 mm[Hg] 140 mm[Hg] [facility] Body weight 99.220960 kg 99.731884 kg [facility] [place] Body temperature 36.860869 Kaylie 36.477943 [facility] Respiratory rate 19 /min 19 /min [facility] Oxygen 98 % 98 % [place] saturation in Medical Arterial blood Center by Pulse oximetry Heart rate 88 /min 88 /min [facility] Body height 177.881696 cm 177.329152 cm [facility] Diastolic blood 82 mm[Hg] 82 mm[Hg] [facility] Systolic blood 148 mm[Hg] 148 mm[Hg] [facility] Body mass index 31.5 kg/m2 31.5 kg/m2 [facility] (BMI) [Ratio] [facility] Body temperature 36.024142 Kaylie 36.068354 [facility] Respiratory rate 17 /min 17 /min [facility] Oxygen 98 % 98 % [place] saturation in Medical Arterial blood Center by Pulse oximetry Heart rate 94 /min 94 /min [facility] Diastolic blood 90 mm[Hg] 90 mm[Hg] [facility] Systolic blood 160 mm[Hg] 160 mm[Hg] [facility] Respiratory rate 18 /min 18 /min [facility] Oxygen 98 % 98 % [facility] [place] saturation in Medical Arterial blood Center by Pulse oximetry Heart rate 85 /min 85 /min [facility] Diastolic blood 85 mm[Hg] 85 mm[Hg] [facility] Systolic blood 142 mm[Hg] 142 mm[Hg] [facility] Body temperature 37.463516 Kaylie 37.005217 [facility] Body weight 110.460691 kg 110.427702 kg [facility] Body temperature 36.413339 Kaylie 36.347822 [facility] Respiratory rate 18 /min 18 /min [facility] Oxygen 98 % 98 % [place] saturation in Medical Arterial blood Center by Pulse oximetry Heart rate 84 /min 84 /min [facility] Body height 182.256342 cm 182.955912 cm [facility] Diastolic blood 58 mm[Hg] 58 mm[Hg] [facility] Center Systolic blood 148 mm[Hg] 148 mm[Hg] [facility] Body mass index 32.8 kg/m2 32.8 kg/m2 [facility] (BMI) [Ratio] [facility] Body temperature 36.726399 Kaylie 36.540155 [facility] Respiratory rate 18 /min 18 /min [facility] Oxygen 97 % 97 % [place] saturation in Medical Arterial blood Center by Pulse oximetry Heart rate 118 /min 118 /min [facility] Diastolic blood 58 mm[Hg] 58 mm[Hg] [facility] Systolic blood 120 mm[Hg] 120 mm[Hg] [facility] [place] Body temperature 36.695321 Kaylie 36.854624 [facility] Respiratory rate 20 /min 20 /min [facility] Oxygen 96 % 96 % [place] saturation in Medical Arterial blood Center by Pulse oximetry Heart rate 143 /min 143 /min [facility] Diastolic blood 40 mm[Hg] 40 mm[Hg] [facility] Systolic blood 119 mm[Hg] 119 mm[Hg] [facility] Respiratory rate 20 /min 20 /min [facility] Oxygen 98 % 98 % [facility] [place] saturation in Medical Arterial blood Center by Pulse oximetry Heart rate 92 /min 92 /min [facility] Diastolic blood 86 mm[Hg] 86 mm[Hg] [facility] Systolic blood 134 mm[Hg] 134 mm[Hg] [facility] Body temperature 36.349332 Kaylie 36.795084 [facility] Respiratory rate 18 /min 18 /min [facility] Oxygen 98 % 98 % [facility] [place] saturation in Medical Arterial blood Center by Pulse oximetry Heart rate 87 /min 87 /min [facility] Diastolic blood 90 mm[Hg] 90 mm[Hg] [facility] pressure [facility] Center Systolic blood 145 mm[Hg] 145 mm[Hg] [facility] Body temperature 36.288001 Kaylie 36.853786 [facility] Respiratory rate 16 /min 16 /min [facility] Oxygen 97 % 97 % [facility] [place] saturation in Medical Arterial blood Center by Pulse oximetry Heart rate 85 /min 85 /min [facility] Diastolic blood 76 mm[Hg] 76 mm[Hg] [facility] pressure [facility] Center Systolic blood 123 mm[Hg] 123 mm[Hg] [facility] Body temperature 36.961454 Kaylie 36.839338 [facility] Body weight 125.349895 kg 125.639425 [address] [facility] Body temperature 36.476609 Kaylie 36.106114 [facility] Respiratory rate 20 /min 20 /min [facility] Oxygen 95 % 95 % [place] saturation in Medical Arterial blood Center by Pulse oximetry Heart rate 100 /min 100 /min [facility] Body height 177.624901 cm 177.260996 cm [facility] Diastolic blood 76 mm[Hg] 76 mm[Hg] [facility] Systolic blood 124 mm[Hg] 124 mm[Hg] [facility] Body mass index 39.5 kg/m2 39.5 kg/m2 [facility] (BMI) [Ratio] [facility] Body temperature 36.296482 Kaylie 36.007517 [facility] Respiratory rate 17 /min 17 /min [facility] Oxygen 96 % 96 % [place] saturation in Medical Arterial [facility] by Pulse oximetry Heart rate 77 /min 77 /min [facility] Diastolic blood 71 mm[Hg] 71 mm[Hg] [facility] Systolic blood 122 mm[Hg] 122 mm[Hg] [facility] Body temperature 37.802068 Kaylie 37.125745 [facility] Respiratory rate 19 /min 19 /min [facility] Oxygen 96 % 96 % [facility] saturation in Medical Arterial blood Center by Pulse oximetry Heart rate 72 /min 72 /min [facility] Diastolic blood 64 mm[Hg] 64 mm[Hg] [facility] pressure [facility] Center Systolic blood 140 mm[Hg] 140 mm[Hg] [facility] Body temperature 36.357577 Kaylie 36.653208 [facility] Respiratory rate 18 /min 18 /min [facility] Oxygen 97 % 97 % [facility] saturation in Medical Arterial blood Center by Pulse oximetry Heart rate 68 /min 68 /min [facility] Diastolic blood 86 mm[Hg] 86 mm[Hg] [facility] pressure [facility] Center Systolic blood 135 mm[Hg] 135 mm[Hg] [facility] Body temperature 36.229480 Kaylie 36.450868 [facility] Respiratory rate 18 /min 18 /min [facility] Oxygen 97 % 97 % [facility] saturation in Medical Arterial blood Center by Pulse oximetry Heart rate 78 /min 78 /min [facility] Diastolic blood 69 mm[Hg] 69 mm[Hg] [facility] Center Systolic blood 134 mm[Hg] 134 mm[Hg] [facility] Body temperature 36.447060 Kaylie 36.657683 [facility] Respiratory rate 18 /min 18 /min [facility] Oxygen 96 % 96 % [facility] saturation in Medical Arterial blood Center by Pulse oximetry Heart rate 87 /min 87 /min [facility] Diastolic blood 80 mm[Hg] 80 mm[Hg] [facility] Center Systolic blood 135 mm[Hg] 135 mm[Hg] [facility] Heart rate 77 /min 77 /min [facility] Diastolic blood 77 mm[Hg] 77 mm[Hg] [facility] pressure [facility] Center Systolic blood 142 mm[Hg] 142 mm[Hg] [facility] Body temperature 36.213290 Kaylie 36.466466 [facility] Respiratory rate 18 /min 18 /min [facility] Oxygen 97 % 97 % [facility] saturation in Medical Arterial blood Center by Pulse oximetry Body temperature 36.324802 Kaylie 36.933851 [facility] Respiratory rate 18 /min 18 /min [facility] Oxygen 98 % 98 % [facility] saturation in Medical Arterial blood Center by Pulse oximetry Heart rate 78 /min 78 /min [facility] Diastolic blood 80 mm[Hg] 80 mm[Hg] [facility] Center Systolic blood 124 mm[Hg] 124 mm[Hg] [facility] Body temperature 36.655942 Kaylie 36.941903 [facility] Respiratory rate 17 /min 17 /min [facility] Oxygen 96 % 96 % [facility] saturation in Medical Arterial blood Center by Pulse oximetry Heart rate 80 /min 80 /min [facility] Diastolic blood 88 mm[Hg] 88 mm[Hg] [facility] Center Systolic blood 133 mm[Hg] 133 mm[Hg] [facility] Body temperature 36.239835 Kaylie 36.314114 [facility] Respiratory rate 17 /min 17 /min [facility] Oxygen 99 % 99 % [facility] saturation in Medical Arterial blood Center by Pulse oximetry Heart rate 80 /min 80 /min [facility] Diastolic blood 78 mm[Hg] 78 mm[Hg] [facility] Systolic blood 132 mm[Hg] 132 mm[Hg] [facility] Body weight 90.040035 kg 90.463105 kg [facility] Body height 177.890069 cm 177.237289 cm [facility] Body mass index 28.4 kg/m2 28.4 kg/m2 [facility] (BMI) [Ratio] [facility] Center Body temperature 36.095877 Kaylie 36.774231 [facility] Respiratory rate 18 /min 18 /min [facility] Oxygen 96 % 96 % [place] saturation in Medical Arterial blood Center by Pulse oximetry Heart rate 90 /min 90 /min [facility] Diastolic blood 58 mm[Hg] 58 mm[Hg] [facility] Center Systolic blood 111 mm[Hg] 111 mm[Hg] [facility] Body temperature 36.197664 Akylie 36.312294 [facility] Respiratory rate 18 /min 18 /min [facility] Oxygen 95 % 95 % [facility] saturation in Medical Arterial blood Center by Pulse oximetry Heart rate 94 /min 94 /min [facility] Diastolic blood 55 mm[Hg] 55 mm[Hg] [facility] Systolic blood 114 mm[Hg] 114 mm[Hg] [facility] Body weight 110.613592 kg 110.088164 kg [facility] Body temperature 37.891168 Kaylie 37.836095 [facility] Respiratory rate 18 /min 18 /min [facility] Oxygen 98 % 98 % [place] saturation in Medical Arterial blood Center by Pulse oximetry Heart rate 88 /min 88 /min [facility] Body height 185.368972 cm 185.142765 cm [facility] Diastolic blood 78 mm[Hg] 78 mm[Hg] [facility] Systolic blood 143 mm[Hg] 143 mm[Hg] [facility] Body mass index 31.9 kg/m2 31.9 kg/m2 [facility] (BMI) [Ratio] Medical Center Diastolic blood 79 mm[Hg] 79 mm[Hg] [facility] Systolic blood 122 mm[Hg] 122 mm[Hg] [facility] Body temperature 36.880582 Kaylie 36.309901 [facility] Respiratory rate 18 /min 18 /min [facility] Oxygen 98 % 98 % [place] saturation in Medical Arterial blood Center by Pulse oximetry Heart rate 88 /min 88 /min [facility] Diastolic blood 51 mm[Hg] 51 mm[Hg] [facility] Systolic blood 81 mm[Hg] 81 mm[Hg] [facility] Body temperature 37.220956 Kaylie 37.167543 [facility] Respiratory rate 18 /min 18 /min [facility] Oxygen 96 % 96 % [place] saturation in Medical Arterial blood Center by Pulse oximetry Heart rate 98 /min 98 /min [facility] Diastolic blood 90 mm[Hg] 90 mm[Hg] [facility] Systolic blood 148 mm[Hg] 148 mm[Hg] [facility] Body temperature 37.865955 Kaylie 37.681907 [facility] Respiratory rate 18 /min 18 /min [facility] Oxygen 95 % 95 % [facility] saturation in Medical Arterial blood Center by Pulse oximetry Heart rate 99 /min 99 /min [facility] Diastolic blood 79 mm[Hg] 79 mm[Hg] [facility] Center Systolic blood 132 mm[Hg] 132 mm[Hg] [facility] Body temperature 36.451732 Kaylie 36.574445 [facility] Respiratory rate 18 /min 18 /min [facility] Oxygen 96 % 96 % [facility] saturation in Medical Arterial blood Center by Pulse oximetry Heart rate 97 /min 97 /min [facility] Diastolic blood 64 mm[Hg] 64 mm[Hg] [facility] Center Systolic blood 118 mm[Hg] 118 mm[Hg] [facility] [place] Body temperature 36.338657 Kaylie 36.674787 [facility] Respiratory rate 18 /min 18 /min [facility] Oxygen 96 % 96 % [facility] saturation in Medical Arterial blood Center by Pulse oximetry Heart rate 95 /min 95 /min [facility] Diastolic blood 68 mm[Hg] 68 mm[Hg] [facility] [place] Systolic blood 127 mm[Hg] 127 mm[Hg] [facility] [place] Body temperature 37.968880 Kaylie 37.141413 [facility] Respiratory rate 18 /min 18 /min [facility] Oxygen 95 % 95 % [facility] saturation in Medical Arterial blood Center by Pulse oximetry Heart rate 94 /min 94 /min [facility] Diastolic blood 69 mm[Hg] 69 mm[Hg] [facility] Systolic blood 115 mm[Hg] 115 mm[Hg] [facility] [place] Body temperature 36.464420 Kaylie 36.888241 [facility] Respiratory rate 17 /min 17 /min [facility] Oxygen 95 % 95 % [facility] saturation in Medical Arterial blood Center by Pulse oximetry Heart rate 90 /min 90 /min [facility] Diastolic blood 60 mm[Hg] 60 mm[Hg] [facility] Systolic blood 109 mm[Hg] 109 mm[Hg] [facility] Body temperature 36.874532 Kaylie 36.256233 [facility] Respiratory rate 16 /min 16 /min [facility] Heart rate 85 /min 85 /min [facility] Diastolic blood 73 mm[Hg] 73 mm[Hg] [facility] pressure [facility] Center Systolic blood 140 mm[Hg] 140 mm[Hg] [facility] Body temperature 36.211574 Kaylie 36.151217 [facility] Respiratory rate 18 /min 18 /min [facility] Oxygen 95 % 95 % [facility] saturation in Medical Arterial blood Center by Pulse oximetry Heart rate 90 /min 90 /min [facility] Diastolic blood 76 mm[Hg] 76 mm[Hg] [facility] Systolic blood 131 mm[Hg] 131 mm[Hg] [facility] Body temperature 36.904789 Kaylie 36.997793 [facility] Respiratory rate 18 /min 18 /min [facility] Oxygen 94 % 94 % [facility] saturation in Medical Arterial blood Center by Pulse oximetry Heart rate 88 /min 88 /min [facility] Diastolic blood 74 mm[Hg] 74 mm[Hg] [facility] Systolic blood 152 mm[Hg] 152 mm[Hg] [facility] Body temperature 36.552755 Kaylie 36.169107 [facility] Respiratory rate 17 /min 17 /min [facility] Heart rate 99 /min 99 /min [facility] Diastolic blood 52 mm[Hg] 52 mm[Hg] [facility] [place] Systolic blood 111 mm[Hg] 111 mm[Hg] [facility] Body weight 79.956588 kg 79.398168 kg [facility] [place] Body temperature 36.816880 Kaylie 36.690249 [facility] Respiratory rate 19 /min 19 /min [facility] Oxygen 95 % 95 % [facility] saturation in Medical Arterial blood Center by Pulse oximetry Heart rate 74 /min 74 /min [facility] Body height 170.627634 cm 170.636408 cm [facility] Diastolic blood 86 mm[Hg] 86 mm[Hg] [facility] Systolic blood 152 mm[Hg] 152 mm[Hg] [facility] Body mass index 27.4 kg/m2 27.4 kg/m2 [facility] (BMI) [Ratio] Medical Center Body temperature 36.424700 Kaylie 36.690532 [facility] Respiratory rate 18 /min 18 /min [facility] Oxygen 98 % 98 % [facility] saturation in Medical Arterial blood Center by Pulse oximetry Heart rate 96 /min 96 /min [facility] Diastolic blood 78 mm[Hg] 78 mm[Hg] [facility] Systolic blood 143 mm[Hg] 143 mm[Hg] [facility] Body temperature 36.929910 Kaylie 36.763081 [facility] Respiratory rate 19 /min 19 /min [facility] Oxygen 96 % 96 % [facility] saturation in Medical Arterial blood Center by Pulse oximetry Heart rate 105 /min 105 /min [facility] Diastolic blood 66 mm[Hg] 66 mm[Hg] [facility] Systolic blood 113 mm[Hg] 113 mm[Hg] [facility] Body temperature 36.068392 Kaylie 36.553513 [facility] Respiratory rate 18 /min 18 /min [facility] Oxygen 96 % 96 % [facility] saturation in Medical Arterial blood Center by Pulse oximetry Heart rate 92 /min 92 /min [facility] Diastolic blood 70 mm[Hg] 70 mm[Hg] [facility] Systolic blood 128 mm[Hg] 128 mm[Hg] [facility] Body temperature 36.906089 Kaylie 36.358885 [facility] Respiratory rate 17 /min 17 /min [facility] Oxygen 97 % 97 % [facility] saturation in Medical Arterial blood Center by Pulse oximetry Heart rate 78 /min 78 /min [facility] Diastolic blood 78 mm[Hg] 78 mm[Hg] [facility] Systolic blood 138 mm[Hg] 138 mm[Hg] [facility] Body temperature 36.902753 Kaylie 36.385657 [facility] Respiratory rate 18 /min 18 /min [facility] Oxygen 95 % 95 % [facility] saturation in Medical Arterial blood Center by Pulse oximetry Heart rate 90 /min 90 /min [facility] Diastolic blood 77 mm[Hg] 77 mm[Hg] [facility] pressure [facility] Center Systolic blood 147 mm[Hg] 147 mm[Hg] [facility] Body temperature 37.028484 Kaylie 37.117958 [facility] Respiratory rate 18 /min 18 /min [facility] Oxygen 95 % 95 % [facility] saturation in Medical Arterial blood Center by Pulse oximetry Heart rate 74 /min 74 /min [facility] Diastolic blood 65 mm[Hg] 65 mm[Hg] [facility] Systolic blood 127 mm[Hg] 127 mm[Hg] [facility] Body temperature 36.608123 Kaylie 36.360563 [facility] Respiratory rate 18 /min 18 /min [facility] Oxygen 96 % 96 % [facility] saturation in Medical Arterial blood Center by Pulse oximetry Heart rate 90 /min 90 /min [facility] Diastolic blood 60 mm[Hg] 60 mm[Hg] [facility] [place] Systolic blood 131 mm[Hg] 131 mm[Hg] [facility] Body temperature 36.654945 Kaylie 36.033493 [facility] Respiratory rate 17 /min 17 /min [facility] Oxygen 98 % 98 % [facility] saturation in Medical Arterial blood Center by Pulse oximetry Heart rate 73 /min 73 /min [facility] Diastolic blood 75 mm[Hg] 75 mm[Hg] [facility] Systolic blood 139 mm[Hg] 139 mm[Hg] [facility] Body temperature 36.525000 Kaylie 36.386797 [facility] Respiratory rate 18 /min 18 /min [facility] Oxygen 99 % 99 % [facility] saturation in Medical Arterial blood Center by Pulse oximetry Heart rate 103 /min 103 /min [facility] Diastolic blood 43 mm[Hg] 43 mm[Hg] [facility] Systolic blood 117 mm[Hg] 117 mm[Hg] [facility] [place] Body temperature 37.576950 Kaylie 37.280189 [facility] Respiratory rate 17 /min 17 /min [facility] Oxygen 95 % 95 % [facility] saturation in Medical Arterial blood Center by Pulse oximetry Heart rate 97 /min 97 /min [facility] Diastolic blood 83 mm[Hg] 83 mm[Hg] [facility] Systolic blood 154 mm[Hg] 154 mm[Hg] [facility] Body temperature 36.225174 Kaylie 36.922526 [facility] Respiratory rate 18 /min 18 /min [facility] Oxygen 98 % 98 % [facility] saturation in Medical Arterial blood Center by Pulse oximetry Heart rate 91 /min 91 /min [facility] Diastolic blood 90 mm[Hg] 90 mm[Hg] [facility] Systolic blood 158 mm[Hg] 158 mm[Hg] [facility] [place] Body temperature 36.112146 Kaylie 36.201335 [facility] Respiratory rate 18 /min 18 /min [facility] Oxygen 96 % 96 % [facility] saturation in Medical Arterial blood Center by Pulse oximetry Heart rate 91 /min 91 /min [facility] Diastolic blood 98 mm[Hg] 98 mm[Hg] [facility] Systolic blood 149 mm[Hg] 149 mm[Hg] [facility] Body temperature 36.702123 Kaylie 36.329079 [facility] Respiratory rate 18 /min 18 /min [facility] Oxygen 98 % 98 % [place] saturation in Medical Arterial blood Center by Pulse oximetry Heart rate 84 /min 84 /min [facility] Diastolic blood 67 mm[Hg] 67 mm[Hg] [facility] [place] Systolic blood 128 mm[Hg] 128 mm[Hg] [facility] [place] Body weight 90.222269 kg 90.165811 kg [facility] [place] Body temperature 36.252950 Kaylie 36.413145 [facility] Respiratory rate 17 /min 17 /min [facility] Oxygen 96 % 96 % [facility] saturation in Medical Arterial blood Center by Pulse oximetry Heart rate 79 /min 79 /min [facility] Body height 177.732898 cm 177.640722 cm [facility] Diastolic blood 74 mm[Hg] 74 mm[Hg] [facility] Systolic blood 120 mm[Hg] 120 mm[Hg] [facility] Body mass index 28.6 kg/m2 28.6 kg/m2 [facility] (BMI) [Ratio] Medical Center Body temperature 37.988264 Kaylie 37.684643 [facility] Respiratory rate 18 /min 18 /min [facility] Heart rate 95 /min 95 /min [facility] Diastolic blood 114 mm[Hg] 114 mm[Hg] [facility] pressure [facility] Center Systolic blood 179 mm[Hg] 179 mm[Hg] [facility] Body temperature 36.681391 Kaylie 36.711072 [facility] Respiratory rate 18 /min 18 /min [facility] Oxygen 96 % 96 % [facility] saturation in Medical Arterial blood Center by Pulse oximetry Heart rate 85 /min 85 /min [facility] Diastolic blood 90 mm[Hg] 90 mm[Hg] [facility] Systolic blood 144 mm[Hg] 144 mm[Hg] [facility] Body temperature 36.249545 Kaylie 36.329120 [facility] Respiratory rate 18 /min 18 /min [facility] Oxygen 95 % 95 % [facility] saturation in Medical Arterial blood Center by Pulse oximetry Heart rate 84 /min 84 /min [facility] Diastolic blood 80 mm[Hg] 80 mm[Hg] [facility] [place] Systolic blood 138 mm[Hg] 138 mm[Hg] [facility] Body weight 110.389882 kg 110.5583[address] [facility] Body temperature 36.741422 Kaylie 36.532977 [facility] Respiratory rate 18 /min 18 /min [facility] Oxygen 98 % 98 % [facility] saturation in Medical Arterial blood Center by Pulse oximetry Heart rate 78 /min 78 /min [facility] Body height 185.114629 cm 185.725181 cm [facility] Diastolic blood 78 mm[Hg] 78 mm[Hg] [facility] Systolic blood 148 mm[Hg] 148 mm[Hg] [facility] Body mass index 31.9 kg/m2 31.9 kg/m2 [facility] (BMI) [Ratio] Medical Center Body temperature 36.638213 Kaylie 36.350377 [facility] Respiratory rate 20 /min 20 /min [facility] Oxygen 94 % 94 % [facility] saturation in Medical Arterial blood Center by Pulse oximetry Heart rate 80 /min 80 /min [facility] Diastolic blood 69 mm[Hg] 69 mm[Hg] [facility] Systolic blood 125 mm[Hg] 125 mm[Hg] [facility] Body temperature 36.863587 Kaylie 36.227590 [facility] Respiratory rate 18 /min 18 /min [facility] Oxygen 100 % 100 % [facility] saturation in Medical Arterial blood Center by Pulse oximetry Heart rate 78 /min 78 /min [facility] Diastolic blood 70 mm[Hg] 70 mm[Hg] [facility] [place] Systolic blood 130 mm[Hg] 130 mm[Hg] [facility] Body temperature 36.371169 Kaylie 36.742380 [facility] Respiratory rate 18 /min 18 /min [facility] Oxygen 95 % 95 % [facility] saturation in Medical Arterial blood Center by Pulse oximetry Heart rate 93 /min 93 /min [facility] Diastolic blood 83 mm[Hg] 83 mm[Hg] [facility] Systolic blood 163 mm[Hg] 163 mm[Hg] [facility] Body temperature 36.798256 Kaylie 36.795186 [facility] Respiratory rate 20 /min 20 /min [facility] Oxygen 94 % 94 % [facility] saturation in Medical Arterial blood Center by Pulse oximetry Heart rate 94 /min 94 /min [facility] Diastolic blood 90 mm[Hg] 90 mm[Hg] [facility] Systolic blood 130 mm[Hg] 130 mm[Hg] [facility] Body weight 104.470386 kg 104.901657 kg [facility] [place] Body temperature 36.581216 Kaylie 36.742299 [facility] Respiratory rate 17 /min 17 /min [facility] Oxygen 100 % 100 % [facility] saturation in Medical Arterial blood Center by Pulse oximetry Heart rate 91 /min 91 /min [facility] Body height 177.471282 cm 177.947031 cm [facility] Diastolic blood 97 mm[Hg] 97 mm[Hg] [facility] pressure [facility] Center Systolic blood 123 mm[Hg] 123 mm[Hg] [facility] Body mass index 33.0 kg/m2 33.0 kg/m2 [facility] (BMI) [Ratio] Medical Center Body temperature 37.881497 Kaylie 37.507463 [facility] Respiratory rate 18 /min 18 /min [facility] Oxygen 97 % 97 % [facility] saturation in Medical Arterial blood Center by Pulse oximetry Heart rate 90 /min 90 /min [facility] Diastolic blood 76 mm[Hg] 76 mm[Hg] [facility] Systolic blood 148 mm[Hg] 148 mm[Hg] [facility] Body temperature 37.018388 Kaylie 37.000322 [facility] Respiratory rate 18 /min 18 /min [facility] Oxygen 96 % 96 % [facility] saturation in Medical Arterial blood Center by Pulse oximetry Heart rate 96 /min 96 /min [facility] Diastolic blood 97 mm[Hg] 97 mm[Hg] [facility] Systolic blood 176 mm[Hg] 176 mm[Hg] [facility] Body temperature 36.177104 Kaylie 36.895318 [facility] Respiratory rate 18 /min 18 /min [facility] Oxygen 99 % 99 % [facility] saturation in Medical Arterial blood Center by Pulse oximetry Heart rate 98 /min 98 /min [facility] Diastolic blood 91 mm[Hg] 91 mm[Hg] [facility] Systolic blood 152 mm[Hg] 152 mm[Hg] [facility] Body temperature 37.898876 Kaylie 37.864374 [facility] Respiratory rate 18 /min 18 /min [facility] Oxygen 94 % 94 % [facility] saturation in Medical Arterial blood Center by Pulse oximetry Heart rate 84 /min 84 /min [facility] Diastolic blood 81 mm[Hg] 81 mm[Hg] [facility] Systolic blood 144 mm[Hg] 144 mm[Hg] [facility] Body temperature 36.965934 Kaylie 36.971458 [facility] Respiratory rate 19 /min 19 /min [facility] Oxygen 99 % 99 % [facility] saturation in Medical Arterial blood Center by Pulse oximetry Heart rate 80 /min 80 /min [facility] Diastolic blood 78 mm[Hg] 78 mm[Hg] [facility] Systolic blood 139 mm[Hg] 139 mm[Hg] [facility] Body temperature 36.398632 Kaylie 36.271269 [facility] Respiratory rate 19 /min 19 /min [facility] Oxygen 97 % 97 % [facility] saturation in Medical Arterial blood Center by Pulse oximetry Heart rate 71 /min 71 /min [facility] Diastolic blood 88 mm[Hg] 88 mm[Hg] [facility] Systolic blood 138 mm[Hg] 138 mm[Hg] [facility] [place] Body temperature 36.412585 Kaylie 36.417429 [facility] Respiratory rate 18 /min 18 /min [facility] Oxygen 98 % 98 % [facility] saturation in Medical Arterial blood Center by Pulse oximetry Heart rate 97 /min 97 /min [facility] Diastolic blood 90 mm[Hg] 90 mm[Hg] [facility] Systolic blood 156 mm[Hg] 156 mm[Hg] [facility] Body temperature 36.857630 Kaylie 36.479375 [facility] Respiratory rate 18 /min 18 /min [facility] Oxygen 95 % 95 % [facility] saturation in Medical Arterial blood Center by Pulse oximetry Heart rate 98 /min 98 /min [facility] Diastolic blood 93 mm[Hg] 93 mm[Hg] [facility] Systolic blood 163 mm[Hg] 163 mm[Hg] [facility] Body temperature 36.243700 Kaylie 36.585792 [facility] Respiratory rate 18 /min 18 /min [facility] Oxygen 95 % 95 % [facility] saturation in Medical Arterial blood Center by Pulse oximetry Heart rate 84 /min 84 /min [facility] Diastolic blood 83 mm[Hg] 83 mm[Hg] [facility] pressure Medical Center Systolic blood 130 mm[Hg] 130 mm[Hg] [facility] Body temperature 36.979636 Kaylie 36.103335 [facility] Respiratory rate 17 /min 17 /min [facility] Oxygen 96 % 96 % [facility] saturation in Medical Arterial blood Center by Pulse oximetry Heart rate 81 /min 81 /min [facility] Diastolic blood 71 mm[Hg] 71 mm[Hg] [facility] pressure Medical Center Systolic blood 118 mm[Hg] 118 mm[Hg] [facility] Body temperature 37.678326 Kaylie 37.528959 [facility] Respiratory rate 18 /min 18 /min [facility] Oxygen 91 % 91 % [facility] saturation in Medical Arterial blood Center by Pulse oximetry Heart rate 107 /min 107 /min [facility] Diastolic blood 79 mm[Hg] 79 mm[Hg] [facility] pressure Medical Center Systolic blood 144 mm[Hg] 144 mm[Hg] [facility] Body temperature 36.764137 Kaylie 36.418687 [facility] Respiratory rate 18 /min 18 /min [facility] Oxygen 90 % 90 % [facility] saturation in Medical Arterial blood Center by Pulse oximetry Heart rate 96 /min 96 /min [facility] Diastolic blood 43 mm[Hg] 43 mm[Hg] [facility] pressure Medical Center Systolic blood 100 mm[Hg] 100 mm[Hg] [facility] [place] Body temperature 36.775543 Kaylie 36.981556 [facility] Respiratory rate 18 /min 18 /min [facility] Oxygen 98 % 98 % [facility] saturation in Medical Arterial blood Center by Pulse oximetry Heart rate 96 /min 96 /min [facility] Diastolic blood 80 mm[Hg] 80 mm[Hg] [facility] pressure Medical Center Systolic blood 132 mm[Hg] 132 mm[Hg] [facility] Body temperature 37.327987 Kaylie 37.121051 [facility] Respiratory rate 18 /min 18 /min [facility] Oxygen 97 % 97 % [facility] saturation in Medical Arterial blood Center by Pulse oximetry Heart rate 98 /min 98 /min [facility] Diastolic blood 57 mm[Hg] 57 mm[Hg] [facility] pressure [facility] Center Systolic blood 141 mm[Hg] 141 mm[Hg] [facility] Body temperature 36.605728 Kaylie 36.617430 [facility] Respiratory rate 20 /min 20 /min [facility] Oxygen 97 % 97 % [facility] saturation in Medical Arterial blood Center by Pulse oximetry Heart rate 100 /min 100 /min [facility] Diastolic blood 71 mm[Hg] 71 mm[Hg] [facility] pressure Medical Center Systolic blood 140 mm[Hg] 140 mm[Hg] [facility] [place] Body temperature 36.475706 Kaylie 36.289419 [facility] Respiratory rate 18 /min 18 /min [facility] Oxygen 98 % 98 % [facility] saturation in Medical Arterial blood Center by Pulse oximetry Heart rate 96 /min 96 /min [facility] Diastolic blood 67 mm[Hg] 67 mm[Hg] [facility] Systolic blood 132 mm[Hg] 132 mm[Hg] [facility] Body temperature 36.475749 Kaylie 36.003316 [facility] Respiratory rate 17 /min 17 /min [facility] Oxygen 98 % 98 % [facility] saturation in Medical Arterial blood Center by Pulse oximetry Heart rate 87 /min 87 /min [facility] Diastolic blood 71 mm[Hg] 71 mm[Hg] [facility] Systolic blood 133 mm[Hg] 133 mm[Hg] [facility] Body temperature 36.331620 Kaylie 36.962689 [facility] Respiratory rate 17 /min 17 /min [facility] Oxygen 95 % 95 % [facility] saturation in Medical Arterial blood Center by Pulse oximetry Heart rate 100 /min 100 /min [facility] Diastolic blood 78 mm[Hg] 78 mm[Hg] [facility] Systolic blood 124 mm[Hg] 124 mm[Hg] [facility] Body temperature 36.824693 Kaylie 36.259402 [facility] Respiratory rate 19 /min 19 /min [facility] Oxygen 95 % 95 % [facility] saturation in Medical Arterial blood Center by Pulse oximetry Heart rate 103 /min 103 /min [facility] Diastolic blood 65 mm[Hg] 65 mm[Hg] [facility] Systolic blood 126 mm[Hg] 126 mm[Hg] [facility] Body temperature 36.806738 Kaylie 36.591230 [facility] Respiratory rate 20 /min 20 /min [facility] Oxygen 94 % 94 % [facility] saturation in Medical Arterial blood Center by Pulse oximetry Heart rate 105 /min 105 /min [facility] Diastolic blood 61 mm[Hg] 61 mm[Hg] [facility] pressure [facility] Center Systolic blood 122 mm[Hg] 122 mm[Hg] [facility] Body temperature 36.825089 Kaylie 36.309186 [facility] Respiratory rate 18 /min 18 /min [facility] Oxygen 97 % 97 % [facility] saturation in Medical Arterial blood Center by Pulse oximetry Heart rate 97 /min 97 /min [facility] Diastolic blood 76 mm[Hg] 76 mm[Hg] [facility] Systolic blood 132 mm[Hg] 132 mm[Hg] [facility] Body temperature 36.984234 Kaylie 36.936460 [facility] Respiratory rate 17 /min 17 /min [facility] Oxygen 98 % 98 % [facility] saturation in Medical Arterial blood Center by Pulse oximetry Heart rate 75 /min 75 /min [facility] Diastolic blood 35 mm[Hg] 35 mm[Hg] [facility] [place] Systolic blood 139 mm[Hg] 139 mm[Hg] [facility] Body temperature 36.441887 Kaylie 36.348064 [facility] Respiratory rate 17 /min 17 /min [facility] Oxygen 98 % 98 % [facility] saturation in Medical Arterial blood Center by Pulse oximetry Heart rate 81 /min 81 /min [facility] Diastolic blood 83 mm[Hg] 83 mm[Hg] [facility] pressure [facility] Center Systolic blood 135 mm[Hg] 135 mm[Hg] [facility] Body temperature 36.763481 Kaylie 36.750158 [facility] Respiratory rate 17 /min 17 /min [facility] Oxygen 97 % 97 % [facility] saturation in Medical Arterial blood Center by Pulse oximetry Heart rate 87 /min 87 /min [facility] Diastolic blood 57 mm[Hg] 57 mm[Hg] [facility] pressure Medical Center Systolic blood 92 mm[Hg] 92 mm[Hg] [facility] Body temperature 36.779989 Kaylie 36.215596 [facility] Respiratory rate 17 /min 17 /min [facility] Oxygen 98 % 98 % [facility] saturation in Medical Arterial blood Center by Pulse oximetry Heart rate 80 /min 80 /min [facility] Diastolic blood 78 mm[Hg] 78 mm[Hg] [facility] Systolic blood 123 mm[Hg] 123 mm[Hg] [facility] Body weight 95.210746 kg 95.394637 kg [facility] [place] Body temperature 36.204057 Kaylie 36.377666 [facility] Respiratory rate 17 /min 17 /min [facility] Oxygen 96 % 96 % [facility] saturation in Medical Arterial blood Center by Pulse oximetry Heart rate 90 /min 90 /min [facility] Body height 177.903455 cm 177.422995 cm [facility] Diastolic blood 73 mm[Hg] 73 mm[Hg] [facility] Systolic blood 132 mm[Hg] 132 mm[Hg] [facility] Body mass index 30.1 kg/m2 30.1 kg/m2 [facility] (BMI) [Ratio] Medical Center Body temperature 36.636911 Kaylie 36.087874 [facility] Respiratory rate 18 /min 18 /min [facility] Heart rate 88 /min 88 /min [facility] Diastolic blood 71 mm[Hg] 71 mm[Hg] [facility] Systolic blood 147 mm[Hg] 147 mm[Hg] [facility] Body temperature 36.304942 Kaylie 36.179894 [facility] Respiratory rate 20 /min 20 /min [facility] Heart rate 86 /min 86 /min [facility] Diastolic blood 89 mm[Hg] 89 mm[Hg] [facility] Systolic blood 145 mm[Hg] 145 mm[Hg] [facility] Body weight 114.893439 kg 114.312397 kg [facility] [place] Body height 177.281990 cm 177.326503 cm [facility] Body mass index 36.06 kg/m2 36.06 kg/m2 [facility] (BMI) [Ratio] Medical Center Body temperature 37.423143 Kaylie 37.536992 [facility] Respiratory rate 18 /min 18 /min [facility] Heart rate 89 /min 89 /min [facility] Diastolic blood 73 mm[Hg] 73 mm[Hg] [facility] Systolic blood 120 mm[Hg] 120 mm[Hg] [facility] Body temperature 37.926360 Kaylie 37.377540 [facility] Respiratory rate 18 /min 18 /min [facility] Heart rate 90 /min 90 /min [facility] Diastolic blood 107 mm[Hg] 107 mm[Hg] [facility] [place] Systolic blood 160 mm[Hg] 160 mm[Hg] [facility] Body temperature 37.159051 Kaylie 37.348898 [facility] Respiratory rate 18 /min 18 /min [facility] Heart rate 80 /min 80 /min [facility] Diastolic blood 68 mm[Hg] 68 mm[Hg] [facility] Systolic blood 128 mm[Hg] 128 mm[Hg] [facility] Body weight 114.311035 kg 114.174002 kg [facility] Body height 177.629783 cm 177.804524 cm [facility] Body mass index 36.06 kg/m2 36.06 kg/m2 [facility] (BMI) [Ratio] Medical Center Oxygen 95 % 95 % [facility] saturation in Medical Arterial blood Center by Pulse oximetry Body weight 114.469524 kg 114.798114 kg [facility] Body height 177.829929 cm 177.426737 cm [facility] Body mass index 36.06 kg/m2 36.06 kg/m2 [facility] (BMI) [Ratio] Medical Center Oxygen 95 % 95 % [facility] saturation in Medical Arterial blood Center by Pulse oximetry Oxygen 95 % 95 % [facility] saturation in Medical Arterial blood Center by Pulse oximetry Body height 177.522412 cm 177.269049 cm [facility] Body mass index 36.06 kg/m2 36.06 kg/m2 [facility] (BMI) [Ratio] [facility] Body weight 114.781894 kg 114.510838 kg [facility] Measured [facility] Body weight 114.014140 kg 114.179374 kg [facility] Body height 177.609348 cm 177.627594 cm [facility] Body mass index 36.06 kg/m2 36.06 kg/m2 [facility] (BMI) [Ratio] [facility] Center Diastolic blood 86 mm[Hg] 86 mm[Hg] [facility] Systolic blood 146 mm[Hg] 146 mm[Hg] [facility] Body temperature 37.395104 Kaylie 37.761560 [facility] Body temperature 37.776440 Kaylie 37.225266 [facility] Respiratory rate 18 /min 18 /min [facility] Heart rate 94 /min 94 /min [facility] Diastolic blood 87 mm[Hg] 87 mm[Hg] [facility] Systolic blood 151 mm[Hg] 151 mm[Hg] [facility] Body weight 114.486240 kg 114.432219 kg [facility] Measured [facility] Center Body height 177.021378 cm 177.304929 cm [facility] Body mass index 36.06 kg/m2 36.06 kg/m2 [facility] (BMI) [Ratio] Medical Center Body weight 114.346069 kg 114.146743 kg [facility] Body height 177.497396 cm 177.574462 cm [facility] Body mass index 36.06 kg/m2 36.06 kg/m2 [facility] (BMI) [Ratio] [facility] Body weight 114.585883 kg 114.652849 kg [facility] Body temperature 37.449924 Kaylie 37.480701 [facility] Body temperature 36.596313 Kaylie 36.939119 [facility] Respiratory rate 18 /min 18 /min [facility] Respiratory rate 17 /min 17 /min [facility] Heart rate 84 /min 84 /min [facility] Heart rate 78 /min 78 /min [facility] Body height 177.364717 cm 177.362610 cm [facility] Diastolic blood 96 mm[Hg] 96 mm[Hg] [facility] pressure [facility] Center Systolic blood 176 mm[Hg] 176 mm[Hg] [facility] Diastolic blood 96 mm[Hg] 96 mm[Hg] [facility] pressure [facility] Center Systolic blood 149 mm[Hg] 149 mm[Hg] [facility] Body mass index 36.06 kg/m2 36.06 kg/m2 [facility] (BMI) [Ratio] [facility] Center Oxygen 99 % 99 % [facility] saturation in Medical Arterial blood Center by Pulse oximetry Body temperature 36.168824 Kaylie 36.629396 [facility] Respiratory rate 18 /min 18 /min [facility] Heart rate 80 /min 80 /min [facility] Diastolic blood 99 mm[Hg] 99 mm[Hg] [facility] Systolic blood 149 mm[Hg] 149 mm[Hg] [facility] Oxygen 99 % 99 % [facility] saturation in Medical Arterial blood Center by Pulse oximetry Systolic blood 144 mm[Hg] 144 mm[Hg] [facility] Body temperature 36.926276 Kaylie 36.834836 [facility] Respiratory rate 17 /min 17 /min [facility] Oxygen 98 % 98 % [facility] saturation in Medical Arterial blood Center by Pulse oximetry Heart rate 78 /min 78 /min [facility] Diastolic blood 94 mm[Hg] 94 mm[Hg] [facility] Respiratory rate 20 /min 20 /min [facility] Oxygen 96 % 96 % [facility] saturation in Medical Arterial blood Center by Pulse oximetry Heart rate 88 /min 88 /min [facility] Oxygen 97 % 97 % [facility] saturation in Medical Arterial blood Center by Pulse oximetry Body temperature 36.872107 Kaylie 36.361701 [facility] Respiratory rate 18 /min 18 /min [facility] Oxygen 98 % 98 % [facility] saturation in Medical Arterial blood Center by Pulse oximetry Heart rate 87 /min 87 /min [facility] Diastolic blood 77 mm[Hg] 77 mm[Hg] [facility] Systolic blood 112 mm[Hg] 112 mm[Hg] [facility] Body temperature 36.735386 Kaylie 36.373959 [facility] Respiratory rate 17 /min 17 /min [facility] Oxygen 98 % 98 % [facility] saturation in Medical Arterial blood Center by Pulse oximetry Heart rate 81 /min 81 /min [facility] Diastolic blood 67 mm[Hg] 67 mm[Hg] [facility] pressure [facility] Center Systolic blood 132 mm[Hg] 132 mm[Hg] [facility] [place] Body temperature 37.370533 Kaylie 37.127655 [facility] Respiratory rate 16 /min 16 /min [facility] Oxygen 98 % 98 % [facility] saturation in Medical Arterial blood Center by Pulse oximetry Heart rate 78 /min 78 /min [facility] Diastolic blood 65 mm[Hg] 65 mm[Hg] [facility] [place] Systolic blood 136 mm[Hg] 136 mm[Hg] [facility] Body temperature 36.445216 Kaylie 36.962920 [facility] Respiratory rate 17 /min 17 /min [facility] Oxygen 96 % 96 % [facility] saturation in Medical Arterial blood Center by Pulse oximetry Heart rate 86 /min 86 /min [facility] Diastolic blood 73 mm[Hg] 73 mm[Hg] [facility] [place] Systolic blood 142 mm[Hg] 142 mm[Hg] [facility] [place] Body temperature 36.421365 Kaylie 36.051382 [facility] Respiratory rate 17 /min 17 /min [facility] Heart rate 79 /min 79 /min [facility] Diastolic blood 87 mm[Hg] 87 mm[Hg] [facility] Systolic blood 138 mm[Hg] 138 mm[Hg] [facility] Body temperature 37.686559 Kaylie 37.940607 [facility] Respiratory rate 17 /min 17 /min [facility] Heart rate 99 /min 99 /min [facility] Diastolic blood 99 mm[Hg] 99 mm[Hg] [facility] pressure [facility] Center Systolic blood 147 mm[Hg] 147 mm[Hg] [facility] Oxygen 97 % 97 % [facility] saturation in Medical Arterial blood Center by Pulse oximetry Body temperature 36.411070 Kaylie 36.205730 [facility] Respiratory rate 18 /min 18 /min [facility] Oxygen 96 % 96 % [facility] saturation in Medical Arterial blood Center by Pulse oximetry Heart rate 78 /min 78 /min [facility] Diastolic blood 78 mm[Hg] 78 mm[Hg] [facility] pressure [facility] Center Systolic blood 138 mm[Hg] 138 mm[Hg] [facility] [place] Body temperature 35.995877 Kaylie 35.505374 [facility] Respiratory rate 17 /min 17 /min [facility] Oxygen 98 % 98 % [place] saturation in Medical Arterial blood Center by Pulse oximetry Heart rate 77 /min 77 /min [facility] Diastolic blood 79 mm[Hg] 79 mm[Hg] [facility] Systolic blood 143 mm[Hg] 143 mm[Hg] [facility] Body temperature 36.906606 Kaylie 36.316525 [facility] Respiratory rate 16 /min 16 /min [facility] Heart rate 81 /min 81 /min [facility] Diastolic blood 76 mm[Hg] 76 mm[Hg] [facility] Systolic blood 138 mm[Hg] 138 mm[Hg] [facility] Body temperature 36.598154 Kaylie 36.200577 [facility] Respiratory rate 17 /min 17 /min [facility] Oxygen 97 % 97 % [facility] saturation in Medical Arterial blood Center by Pulse oximetry Heart rate 85 /min 85 /min [facility] Diastolic blood 67 mm[Hg] 67 mm[Hg] [facility] Systolic blood 132 mm[Hg] 132 mm[Hg] [facility] Body temperature 36.981026 Kaylie 36.905965 [facility] Respiratory rate 17 /min 17 /min [facility] Oxygen 94 % 94 % [facility] saturation in Medical Arterial blood Center by Pulse oximetry Heart rate 70 /min 70 /min [facility] Diastolic blood 72 mm[Hg] 72 mm[Hg] [facility] Systolic blood 125 mm[Hg] 125 mm[Hg] [facility] Body temperature 36.130953 Kaylie 36.772698 [facility] Respiratory rate 18 /min 18 /min [facility] Heart rate 88 /min 88 /min [facility] Diastolic blood 69 mm[Hg] 69 mm[Hg] [facility] pressure [facility] Center Systolic blood 134 mm[Hg] 134 mm[Hg] [facility] Body temperature 36.395207 Kaylie 36.743011 [facility] Respiratory rate 19 /min 19 /min [facility] Oxygen 96 % 96 % [facility] saturation in Medical Arterial blood Center by Pulse oximetry Heart rate 87 /min 87 /min [facility] Diastolic blood 71 mm[Hg] 71 mm[Hg] [facility] Systolic blood 123 mm[Hg] 123 mm[Hg] [facility] Body weight 104.970044 kg 104.2463[address] [facility] Body temperature 36.126681 Kaylie 36.063007 [facility] Respiratory rate 17 /min 17 /min [facility] Oxygen 95 % 95 % [facility] saturation in Medical Arterial blood Center by Pulse oximetry Heart rate 89 /min 89 /min [facility] Body height 177.323328 cm 177.500393 cm [facility] Diastolic blood 69 mm[Hg] 69 mm[Hg] [facility] pressure [facility] Center Systolic blood 127 mm[Hg] 127 mm[Hg] [facility] Body mass index 33.0 kg/m2 33.0 kg/m2 [facility] (BMI) [Ratio] Medical Center Body temperature 36.514025 Kaylie 36.154438 [facility] Respiratory rate 19 /min 19 /min [facility] Heart rate 81 /min 81 /min [facility] Diastolic blood 88 mm[Hg] 88 mm[Hg] [facility] Systolic blood 136 mm[Hg] 136 mm[Hg] [facility] Body temperature 36.522266 Kaylie 36.930855 [facility] Respiratory rate 18 /min 18 /min [facility] Heart rate 92 /min 92 /min [facility] Diastolic blood 98 mm[Hg] 98 mm[Hg] [facility] pressure [facility] Center Systolic blood 148 mm[Hg] 148 mm[Hg] [facility] Body temperature 36.417835 Kaylie 36.082244 [facility] Respiratory rate 19 /min 19 /min [facility] Oxygen 100 % 100 % [place] saturation in Medical Arterial blood Center by Pulse oximetry Heart rate 100 /min 100 /min [facility] Diastolic blood 61 mm[Hg] 61 mm[Hg] [facility] [place] Systolic blood 126 mm[Hg] 126 mm[Hg] [facility] Body temperature 36.289638 Kaylie 36.523661 [facility] Respiratory rate 17 /min 17 /min [facility] Oxygen 96 % 96 % [place] saturation in Medical Arterial blood Center by Pulse oximetry Heart rate 78 /min 78 /min [facility] Diastolic blood 89 mm[Hg] 89 mm[Hg] [facility] [place] Systolic blood 146 mm[Hg] 146 mm[Hg] [facility] Body temperature 36.235385 Kaylie 36.256027 [facility] Respiratory rate 17 /min 17 /min [facility] Oxygen 98 % 98 % [place] saturation in Medical Arterial blood Center by Pulse oximetry Heart rate 90 /min 90 /min [facility] Diastolic blood 63 mm[Hg] 63 mm[Hg] [facility] Systolic blood 145 mm[Hg] 145 mm[Hg] [facility] [place] Respiratory rate 18 /min 18 /min [facility] Oxygen 99 % 99 % [place] saturation in Medical Arterial blood Center by Pulse oximetry Heart rate 78 /min 78 /min [facility] Diastolic blood 84 mm[Hg] 84 mm[Hg] [facility] Systolic blood 132 mm[Hg] 132 mm[Hg] [facility] [place] Body temperature 36.430936 Kaylie 36.295770 [facility] Body weight 110.019693 kg 110.547542 kg [facility] [place] Body temperature 36.500629 Kaylie 36.093035 [facility] Respiratory rate 18 /min 18 /min [facility] Oxygen 98 % 98 % [facility] saturation in Medical Arterial blood Center by Pulse oximetry Heart rate 89 /min 89 /min [facility] Body height 180.564499 cm 180.516740 cm [facility] Diastolic blood 88 mm[Hg] 88 mm[Hg] [facility] pressure [facility] Systolic blood 154 mm[Hg] 154 mm[Hg] [facility] Body mass index 33.8 kg/m2 33.8 kg/m2 [facility] (BMI) [Ratio] [facility] Body temperature 36.625808 Kaylie 36.063406 [facility] Respiratory rate 17 /min 17 /min [facility] Oxygen 99 % 99 % [facility] saturation in Medical Arterial blood Center by Pulse oximetry Heart rate 81 /min 81 /min [facility] Diastolic blood 71 mm[Hg] 71 mm[Hg] [facility] pressure [facility] Systolic blood 118 mm[Hg] 118 mm[Hg] [facility] Body temperature 36.060865 Kaylie 36.846887 [facility] Respiratory rate 18 /min 18 /min [facility] Oxygen 99 % 99 % [facility] saturation in Medical Arterial blood Center by Pulse oximetry Heart rate 78 /min 78 /min [facility] Diastolic blood 77 mm[Hg] 77 mm[Hg] [facility] pressure [facility] Systolic blood 129 mm[Hg] 129 mm[Hg] [facility] Body temperature 37.572998 Kaylie 37.465377 [facility] Respiratory rate 17 /min 17 /min [facility] Oxygen 97 % 97 % [facility] saturation in Medical Arterial blood Center by Pulse oximetry Heart rate 79 /min 79 /min [facility] Diastolic blood 75 mm[Hg] 75 mm[Hg] [facility] pressure [facility] Systolic blood 136 mm[Hg] 136 mm[Hg] [facility] Body temperature 36.306198 Kaylie 36.267043 [facility] Respiratory rate 17 /min 17 /min [facility] Oxygen 98 % 98 % [facility] saturation in Medical Arterial blood Center by Pulse oximetry Heart rate 88 /min 88 /min [facility] Diastolic blood 81 mm[Hg] 81 mm[Hg] [facility] Systolic blood 159 mm[Hg] 159 mm[Hg] [facility] Body temperature 36.904932 Kaylie 36.815865 [facility] Respiratory rate 18 /min 18 /min [facility] Oxygen 97 % 97 % [facility] saturation in Medical Arterial blood Center by Pulse oximetry Heart rate 88 /min 88 /min [facility] Diastolic blood 75 mm[Hg] 75 mm[Hg] [facility] pressure [facility] Center Systolic blood 145 mm[Hg] 145 mm[Hg] [facility] Body temperature 36.521946 Kaylie 36.134994 [facility] Respiratory rate 17 /min 17 /min [facility] Oxygen 97 % 97 % [facility] saturation in Medical Arterial blood Center by Pulse oximetry Heart rate 90 /min 90 /min [facility] Diastolic blood 78 mm[Hg] 78 mm[Hg] [facility] Systolic blood 160 mm[Hg] 160 mm[Hg] [facility] Body temperature 37.053951 Kaylie 37.885069 [facility] Respiratory rate 18 /min 18 /min [facility] Oxygen 95 % 95 % [facility] saturation in Medical Arterial blood Center by Pulse oximetry Heart rate 93 /min 93 /min [facility] Diastolic blood 80 mm[Hg] 80 mm[Hg] [facility] Systolic blood 198 mm[Hg] 198 mm[Hg] [facility] [place] Body temperature 37.989090 Kaylie 37.295201 [facility] Respiratory rate 18 /min 18 /min [facility] Oxygen 95 % 95 % [facility] saturation in Medical Arterial blood Center by Pulse oximetry Heart rate 92 /min 92 /min [facility] Diastolic blood 71 mm[Hg] 71 mm[Hg] [facility] Systolic blood 139 mm[Hg] 139 mm[Hg] [facility] [place] Body temperature 36.755613 Kaylie 36.621311 [facility] Respiratory rate 17 /min 17 /min [facility] Oxygen 98 % 98 % [facility] saturation in Medical Arterial blood Center by Pulse oximetry Heart rate 89 /min 89 /min [facility] Diastolic blood 83 mm[Hg] 83 mm[Hg] [facility] pressure [facility] Center Systolic blood 159 mm[Hg] 159 mm[Hg] [facility] Body temperature 36.794727 Kaylie 36.268125 [facility] Respiratory rate 18 /min 18 /min [facility] Oxygen 97 % 97 % [facility] saturation in Medical Arterial blood Center by Pulse oximetry Heart rate 81 /min 81 /min [facility] Diastolic blood 74 mm[Hg] 74 mm[Hg] [facility] Systolic blood 117 mm[Hg] 117 mm[Hg] [facility] Body temperature 37.908986 Kaylie 37.870868 [facility] Respiratory rate 19 /min 19 /min [facility] Oxygen 98 % 98 % [facility] saturation in Medical Arterial blood Center by Pulse oximetry Heart rate 88 /min 88 /min [facility] Diastolic blood 87 mm[Hg] 87 mm[Hg] [facility] [place] Systolic blood 149 mm[Hg] 149 mm[Hg] [facility] Body temperature 37.754750 Kaylie 37.746946 [facility] Respiratory rate 20 /min 20 /min [facility] Oxygen 97 % 97 % [facility] saturation in Medical Arterial blood Center by Pulse oximetry Heart rate 92 /min 92 /min [facility] Diastolic blood 85 mm[Hg] 85 mm[Hg] [facility] [place] Systolic blood 152 mm[Hg] 152 mm[Hg] [facility] Body temperature 36.282654 Kaylie 36.431181 [facility] Respiratory rate 18 /min 18 /min [facility] Oxygen 100 % 100 % [facility] saturation in Medical Arterial blood Center by Pulse oximetry Heart rate 70 /min 70 /min [facility] Diastolic blood 74 mm[Hg] 74 mm[Hg] [facility] [place] Systolic blood 129 mm[Hg] 129 mm[Hg] [facility] Body weight 99.243285 kg 99.444974 kg [facility] [place] Body temperature 36.707163 Kaylie 36.045573 [facility] Respiratory rate 18 /min 18 /min [facility] Oxygen 98 % 98 % [facility] saturation in Medical Arterial blood Center by Pulse oximetry Heart rate 78 /min 78 /min [facility] Body height 182.988296 cm 182.116913 cm [facility] Diastolic blood 74 mm[Hg] 74 mm[Hg] [facility] pressure [facility] Center Systolic blood 128 mm[Hg] 128 mm[Hg] [facility] Body mass index 29.8 kg/m2 29.8 kg/m2 [facility] (BMI) [Ratio] [facility] Body temperature 36.911662 Kaylie 36.333647 [facility] Respiratory rate 20 /min 20 /min [facility] Oxygen 94 % 94 % [facility] saturation in Medical Arterial blood Center by Pulse oximetry Heart rate 92 /min 92 /min [facility] Diastolic blood 87 mm[Hg] 87 mm[Hg] [facility] pressure [facility] Systolic blood 143 mm[Hg] 143 mm[Hg] [facility] Body temperature 36.153095 Kaylie 36.115549 [facility] Respiratory rate 18 /min 18 /min [facility] Oxygen 96 % 96 % [facility] saturation in Medical Arterial blood Center by Pulse oximetry Heart rate 87 /min 87 /min [facility] Diastolic blood 84 mm[Hg] 84 mm[Hg] [facility] Systolic blood 136 mm[Hg] 136 mm[Hg] [facility] Body temperature 37.327133 Kaylie 37.603951 [facility] Respiratory rate 18 /min 18 /min [facility] Oxygen 96 % 96 % [facility] saturation in Medical Arterial blood Center by Pulse oximetry Heart rate 90 /min 90 /min [facility] Diastolic blood 63 mm[Hg] 63 mm[Hg] [facility] Systolic blood 136 mm[Hg] 136 mm[Hg] [facility] Body temperature 36.858188 Kaylie 36.986047 [facility] Respiratory rate 18 /min 18 /min [facility] Oxygen 96 % 96 % [facility] saturation in Medical Arterial blood Center by Pulse oximetry Heart rate 109 /min 109 /min [facility] Diastolic blood 71 mm[Hg] 71 mm[Hg] [facility] pressure [facility] Center Systolic blood 130 mm[Hg] 130 mm[Hg] [facility] Body temperature 36.360634 Kaylie 36.383450 [facility] Respiratory rate 18 /min 18 /min [facility] Heart rate 132 /min 132 /min [facility] Diastolic blood 76 mm[Hg] 76 mm[Hg] [facility] Systolic blood 137 mm[Hg] 137 mm[Hg] [facility] Body temperature 36.365128 Kaylie 36.496451 [facility] Respiratory rate 17 /min 17 /min [facility] Oxygen 97 % 97 % [place] saturation in Medical Arterial blood Center by Pulse oximetry Heart rate 104 /min 104 /min [facility] Diastolic blood 81 mm[Hg] 81 mm[Hg] [facility] [place] Systolic blood 143 mm[Hg] 143 mm[Hg] [facility] Body temperature 36.385554 Kaylie 36.014922 [facility] Respiratory rate 19 /min 19 /min [facility] Oxygen 95 % 95 % [facility] saturation in Medical Arterial blood Center by Pulse oximetry Heart rate 92 /min 92 /min [facility] Diastolic blood 96 mm[Hg] 96 mm[Hg] [facility] [place] Systolic blood 155 mm[Hg] 155 mm[Hg] [facility] Body temperature 37.599323 Kaylie 37.722253 [facility] Respiratory rate 18 /min 18 /min [facility] Oxygen 95 % 95 % [place] saturation in Medical Arterial blood Center by Pulse oximetry Heart rate 104 /min 104 /min [facility] Diastolic blood 78 mm[Hg] 78 mm[Hg] [facility] Systolic blood 155 mm[Hg] 155 mm[Hg] [facility] Body temperature 36.017890 Kaylie 36.854803 [facility] Respiratory rate 17 /min 17 /min [facility] Heart rate 95 /min 95 /min [facility] Diastolic blood 93 mm[Hg] 93 mm[Hg] [facility] Systolic blood 156 mm[Hg] 156 mm[Hg] [facility] Body temperature 36.358149 Kaylie 36.594787 [facility] Respiratory rate 18 /min 18 /min [facility] Oxygen 98 % 98 % [facility] saturation in Medical Arterial blood Center by Pulse oximetry Heart rate 98 /min 98 /min [facility] Diastolic blood 94 mm[Hg] 94 mm[Hg] [facility] pressure [facility] Center Systolic blood 156 mm[Hg] 156 mm[Hg] [facility] Body temperature 36.812024 Kaylie 36.791857 [facility] Respiratory rate 18 /min 18 /min [facility] Oxygen 98 % 98 % [facility] saturation in Medical Arterial blood Center by Pulse oximetry Heart rate 91 /min 91 /min [facility] Diastolic blood 96 mm[Hg] 96 mm[Hg] [facility] [place] Systolic blood 146 mm[Hg] 146 mm[Hg] [facility] Respiratory rate 16 /min 16 /min [facility] Oxygen 95 % 95 % [facility] saturation in Medical Arterial blood Center by Pulse oximetry Heart rate 101 /min 101 /min [facility] Diastolic blood 93 mm[Hg] 93 mm[Hg] [facility] [place] Systolic blood 152 mm[Hg] 152 mm[Hg] [facility] [place] Body temperature 36.963702 Kaylie 36.968168 [facility] Respiratory rate 18 /min 18 /min [facility] Oxygen 96 % 96 % [facility] saturation in Medical Arterial blood Center by Pulse oximetry Heart rate 99 /min 99 /min [facility] Diastolic blood 95 mm[Hg] 95 mm[Hg] [facility] Systolic blood 182 mm[Hg] 182 mm[Hg] [facility] Body temperature 37.832822 Kaylie 37.731061 [facility] Respiratory rate 16 /min 16 /min [facility] Oxygen 95 % 95 % [facility] saturation in Medical Arterial blood Center by Pulse oximetry Heart rate 105 /min 105 /min [facility] Diastolic blood 102 mm[Hg] 102 mm[Hg] [facility] Systolic blood 154 mm[Hg] 154 mm[Hg] [facility] Body temperature 37.627315 Kaylie 37.458581 [facility] Respiratory rate 19 /min 19 /min [facility] Oxygen 95 % 95 % [facility] saturation in Medical Arterial blood Center by Pulse oximetry Heart rate 99 /min 99 /min [facility] Diastolic blood 99 mm[Hg] 99 mm[Hg] [facility] pressure [facility] Center Systolic blood 175 mm[Hg] 175 mm[Hg] [facility] [place] Body temperature 36.025946 Kaylie 36.698194 [facility] Respiratory rate 19 /min 19 /min [facility] Oxygen 97 % 97 % [facility] saturation in Medical Arterial blood Center by Pulse oximetry Heart rate 89 /min 89 /min [facility] Diastolic blood 93 mm[Hg] 93 mm[Hg] [facility] Systolic blood 155 mm[Hg] 155 mm[Hg] [facility] [place] Body temperature 36.913718 Kaylie 36.397143 [facility] Body temperature 36.913938 Kaylie 36.965983 [facility] Respiratory rate 18 /min 18 /min [facility] Oxygen 97 % 97 % [facility] saturation in Medical Arterial blood Center by Pulse oximetry Heart rate 76 /min 76 /min [facility] Diastolic blood 72 mm[Hg] 72 mm[Hg] [facility] Systolic blood 138 mm[Hg] 138 mm[Hg] [facility] Body temperature 36.416461 Kaylie 36.087510 [facility] Respiratory rate 17 /min 17 /min [facility] Oxygen 96 % 96 % [facility] saturation in Medical Arterial blood Center by Pulse oximetry Heart rate 78 /min 78 /min [facility] Diastolic blood 69 mm[Hg] 69 mm[Hg] [facility] Systolic blood 142 mm[Hg] 142 mm[Hg] [facility] Body temperature 36.165215 Kaylie 36.794010 [facility] Respiratory rate 18 /min 18 /min [facility] Oxygen 97 % 97 % [facility] saturation in Medical Arterial blood Center by Pulse oximetry Heart rate 83 /min 83 /min [facility] Diastolic blood 81 mm[Hg] 81 mm[Hg] [facility] pressure [facility] Systolic blood 159 mm[Hg] 159 mm[Hg] [facility] Body temperature 36.185256 Kaylie 36.839838 [facility] Respiratory rate 18 /min 18 /min [facility] Oxygen 94 % 94 % [facility] saturation in Medical Arterial blood Center by Pulse oximetry Heart rate 89 /min 89 /min [facility] Diastolic blood 89 mm[Hg] 89 mm[Hg] [facility] Systolic blood 139 mm[Hg] 139 mm[Hg] [facility] [place] Body temperature 36.567917 Kaylie 36.623695 [facility] Respiratory rate 19 /min 19 /min [facility] Oxygen 95 % 95 % [facility] saturation in Medical Arterial blood Center by Pulse oximetry Heart rate 88 /min 88 /min [facility] Diastolic blood 82 mm[Hg] 82 mm[Hg] [facility] Systolic blood 156 mm[Hg] 156 mm[Hg] [facility] Body temperature 36.097006 Kaylie 36.894344 [facility] Respiratory rate 18 /min 18 /min [facility] Oxygen 98 % 98 % [facility] saturation in Medical Arterial blood Center by Pulse oximetry Heart rate 74 /min 74 /min [facility] Diastolic blood 78 mm[Hg] 78 mm[Hg] [facility] Systolic blood 128 mm[Hg] 128 mm[Hg] [facility] Body temperature 36.532219 Kaylie 36.651420 [facility] Respiratory rate 17 /min 17 /min [facility] Oxygen 99 % 99 % [facility] saturation in Medical Arterial blood Center by Pulse oximetry Heart rate 80 /min 80 /min [facility] Diastolic blood 92 mm[Hg] 92 mm[Hg] [facility] Systolic blood 144 mm[Hg] 144 mm[Hg] [facility] [place] Body weight 88.228421 kg 88.989900 kg [facility] Body temperature 36.064298 Kaylie 36.817470 [facility] Respiratory rate 17 /min 17 /min [facility] Oxygen 99 % 99 % [facility] saturation in Medical Arterial blood Center by Pulse oximetry Heart rate 78 /min 78 /min [facility] Body height 177.575936 cm 177.891791 cm [facility] Diastolic blood 88 mm[Hg] 88 mm[Hg] [facility] pressure [facility] Systolic blood 142 mm[Hg] 142 mm[Hg] [facility] Body mass index 27.8 kg/m2 27.8 kg/m2 [facility] (BMI) [Ratio] [facility] Body temperature 37.424538 Kaylie 37.691972 [facility] Respiratory rate 18 /min 18 /min [facility] Oxygen 96 % 96 % [facility] saturation in Medical Arterial blood Center by Pulse oximetry Heart rate 97 /min 97 /min [facility] Diastolic blood 95 mm[Hg] 95 mm[Hg] [facility] Systolic blood 157 mm[Hg] 157 mm[Hg] [facility] Body temperature 37.895932 Kaylie 37.369304 [facility] Respiratory rate 18 /min 18 /min [facility] Oxygen 95 % 95 % [facility] saturation in Medical Arterial blood Center by Pulse oximetry Heart rate 99 /min 99 /min [facility] Diastolic blood 81 mm[Hg] 81 mm[Hg] [facility] Systolic blood 121 mm[Hg] 121 mm[Hg] [facility] Body temperature 36.906328 Kaylie 36.781719 [facility] Respiratory rate 18 /min 18 /min [facility] Oxygen 97 % 97 % [facility] saturation in Medical Arterial blood Center by Pulse oximetry Heart rate 89 /min 89 /min [facility] Diastolic blood 70 mm[Hg] 70 mm[Hg] [facility] Systolic blood 126 mm[Hg] 126 mm[Hg] [facility] Body weight 104.997037 [address] 104.478[address] [facility] Body temperature 36.125377 Kaylie 36.294472 [facility] Respiratory rate 17 /min 17 /min [facility] Oxygen 98 % 98 % [facility] saturation in Medical Arterial blood Center by Pulse oximetry Heart rate 98 /min 98 /min [facility] Body height 177.393034 cm 177.662583 cm [facility] Diastolic blood 60 mm[Hg] 60 mm[Hg] [facility] pressure [facility] Systolic blood 116 mm[Hg] 116 mm[Hg] [facility] Body mass index 33.0 kg/m2 33.0 kg/m2 [facility] (BMI) [Ratio] [facility] Body temperature 36.893947 Kaylie 36.516896 [facility] Respiratory rate 17 /min 17 /min [facility] Oxygen 98 % 98 % [facility] saturation in Medical Arterial blood Center by Pulse oximetry Heart rate 84 /min 84 /min [facility] Diastolic blood 91 mm[Hg] 91 mm[Hg] [facility] [place] Systolic blood 153 mm[Hg] 153 mm[Hg] [facility] Body temperature 36.295780 Kaylie 36.597499 [facility] Respiratory rate 16 /min 16 /min [facility] Heart rate 75 /min 75 /min [facility] Diastolic blood 76 mm[Hg] 76 mm[Hg] [facility] Systolic blood 136 mm[Hg] 136 mm[Hg] [facility] Body temperature 36.187406 Kaylie 36.919718 [facility] Respiratory rate 17 /min 17 /min [facility] Oxygen 98 % 98 % [facility] saturation in Medical Arterial blood Center by Pulse oximetry Heart rate 76 /min 76 /min [facility] Diastolic blood 81 mm[Hg] 81 mm[Hg] [facility] Systolic blood 149 mm[Hg] 149 mm[Hg] [facility] Body temperature 36.255449 Kaylie 36.240332 [facility] Respiratory rate 18 /min 18 /min [facility] Oxygen 96 % 96 % [facility] saturation in Medical Arterial blood Center by Pulse oximetry Heart rate 89 /min 89 /min [facility] Diastolic blood 68 mm[Hg] 68 mm[Hg] [facility] pressure [facility] Systolic blood 132 mm[Hg] 132 mm[Hg] [facility] Body temperature 36.095026 Kaylie 36.683716 [facility] Respiratory rate 18 /min 18 /min [facility] Oxygen 96 % 96 % [facility] saturation in Medical Arterial blood Center by Pulse oximetry Heart rate 84 /min 84 /min [facility] Diastolic blood 71 mm[Hg] 71 mm[Hg] [facility] Systolic blood 119 mm[Hg] 119 mm[Hg] [facility] Body temperature 36.674886 Kaylie 36.126126 [facility] Respiratory rate 19 /min 19 /min [facility] Oxygen 96 % 96 % [facility] saturation in Medical Arterial blood Center by Pulse oximetry Heart rate 83 /min 83 /min [facility] Diastolic blood 66 mm[Hg] 66 mm[Hg] [facility] [place] Systolic blood 123 mm[Hg] 123 mm[Hg] [facility] Body temperature 36.507291 Kaylie 36.864641 [facility] Respiratory rate 18 /min 18 /min [facility] Oxygen 98 % 98 % [facility] saturation in Medical Arterial blood Center by Pulse oximetry Heart rate 76 /min 76 /min [facility] Diastolic blood 80 mm[Hg] 80 mm[Hg] [facility] [place] Systolic blood 115 mm[Hg] 115 mm[Hg] [facility] Body temperature 36.876355 Kaylie 36.909806 [facility] Body temperature 36.846297 Kaylie 36.947211 [facility] Respiratory rate 18 /min 18 /min [facility] Oxygen 96 % 96 % [facility] saturation in Medical Arterial blood Center by Pulse oximetry Heart rate 88 /min 88 /min [facility] Diastolic blood 72 mm[Hg] 72 mm[Hg] [facility] Systolic blood 111 mm[Hg] 111 mm[Hg] [facility] Body temperature 36.702139 Kaylie 36.935254 [facility] Respiratory rate 18 /min 18 /min [facility] Oxygen 96 % 96 % [facility] saturation in Medical Arterial blood Center by Pulse oximetry Heart rate 87 /min 87 /min [facility] Diastolic blood 85 mm[Hg] 85 mm[Hg] [facility] Systolic blood 136 mm[Hg] 136 mm[Hg] [facility] Body temperature 36.685702 Kaylie 36.060511 [facility] Respiratory rate 17 /min 17 /min [facility] Oxygen 91 % 91 % [place] saturation in Medical Arterial blood Center by Pulse oximetry Heart rate 87 /min 87 /min [facility] Diastolic blood 97 mm[Hg] 97 mm[Hg] [facility] [place] Systolic blood 152 mm[Hg] 152 mm[Hg] [facility] [place] Body temperature 36.678765 Kaylie 36.517573 [facility] Respiratory rate 20 /min 20 /min [facility] Oxygen 91 % 91 % [place] saturation in Medical Arterial blood Center by Pulse oximetry Heart rate 77 /min 77 /min [facility] Diastolic blood 78 mm[Hg] 78 mm[Hg] [facility] [place] Systolic blood 140 mm[Hg] 140 mm[Hg] [facility] Body weight 105.475080 kg 105.510658 kg [facility] Body temperature 37.663631 Kaylie 37.120876 [facility] Respiratory rate 20 /min 20 /min [facility] Oxygen 92 % 92 % [place] saturation in Medical Arterial blood Center by Pulse oximetry Heart rate 89 /min 89 /min [facility] Diastolic blood 79 mm[Hg] 79 mm[Hg] [facility] Systolic blood 155 mm[Hg] 155 mm[Hg] [facility] Body temperature 36.222451 Kaylie 36.907913 [facility] Respiratory rate 16 /min 16 /min [facility] Oxygen 98 % 98 % [place] saturation in Medical Arterial blood Center by Pulse oximetry Heart rate 81 /min 81 /min [facility] Diastolic blood 73 mm[Hg] 73 mm[Hg] [facility] Systolic blood 126 mm[Hg] 126 mm[Hg] [facility] Body temperature 36.484547 Kaylie 36.806886 [facility] Respiratory rate 17 /min 17 /min [facility] Oxygen 98 % 98 % [facility] saturation in Medical Arterial blood Center by Pulse oximetry Heart rate 67 /min 67 /min [facility] Diastolic blood 63 mm[Hg] 63 mm[Hg] [facility] pressure Medical Center Systolic blood 134 mm[Hg] 134 mm[Hg] [facility] [place] Body temperature 36.213520 Kaylie 36.937291 [facility] Respiratory rate 18 /min 18 /min [facility] Oxygen 97 % 97 % [facility] saturation in Medical Arterial blood Center by Pulse oximetry Heart rate 69 /min 69 /min [facility] Diastolic blood 73 mm[Hg] 73 mm[Hg] [facility] pressure Medical Center Systolic blood 119 mm[Hg] 119 mm[Hg] [facility] Body temperature 36.935299 Kaylie 36.576343 [facility] Respiratory rate 17 /min 17 /min [facility] Oxygen 98 % 98 % [facility] saturation in Medical Arterial blood Center by Pulse oximetry Heart rate 71 /min 71 /min [facility] Diastolic blood 69 mm[Hg] 69 mm[Hg] [facility] [place] Systolic blood 127 mm[Hg] 127 mm[Hg] [facility] Body temperature 36.297298 Kaylie 36.445862 [facility] Respiratory rate 16 /min 16 /min [facility] Oxygen 100 % 100 % [facility] saturation in Medical Arterial blood Center by Pulse oximetry Heart rate 74 /min 74 /min [facility] Diastolic blood 85 mm[Hg] 85 mm[Hg] [facility] Systolic blood 130 mm[Hg] 130 mm[Hg] [facility] Body temperature 37.889428 Kaylie 37.456984 [facility] Respiratory rate 18 /min 18 /min [facility] Oxygen 95 % 95 % [facility] saturation in Medical Arterial blood Center by Pulse oximetry Heart rate 77 /min 77 /min [facility] Diastolic blood 86 mm[Hg] 86 mm[Hg] [facility] Systolic blood 154 mm[Hg] 154 mm[Hg] [facility] Body temperature 36.696582 Kaylie 36.713749 [facility] Respiratory rate 18 /min 18 /min [facility] Oxygen 98 % 98 % [facility] saturation in Medical Arterial blood Center by Pulse oximetry Heart rate 80 /min 80 /min [facility] Diastolic blood 90 mm[Hg] 90 mm[Hg] [facility] Systolic blood 170 mm[Hg] 170 mm[Hg] [facility] Body temperature 36.659181 Kaylie 36.151465 [facility] Respiratory rate 18 /min 18 /min [facility] Oxygen 95 % 95 % [facility] saturation in Medical Arterial blood Center by Pulse oximetry Heart rate 70 /min 70 /min [facility] Diastolic blood 103 mm[Hg] 103 mm[Hg] [facility] Systolic blood 166 mm[Hg] 166 mm[Hg] [facility] [place] Body temperature 36.695076 Kaylie 36.059345 [facility] Respiratory rate 18 /min 18 /min [facility] Oxygen 97 % 97 % [facility] saturation in Medical Arterial blood Center by Pulse oximetry Heart rate 87 /min 87 /min [facility] Diastolic blood 72 mm[Hg] 72 mm[Hg] [facility] Systolic blood 138 mm[Hg] 138 mm[Hg] [facility] Body temperature 36.108204 Kaylie 36.531193 [facility] Respiratory rate 16 /min 16 /min [facility] Oxygen 98 % 98 % [facility] saturation in Medical Arterial blood Center by Pulse oximetry Heart rate 74 /min 74 /min [facility] Diastolic blood 71 mm[Hg] 71 mm[Hg] [facility] Systolic blood 146 mm[Hg] 146 mm[Hg] [facility] [place] Body weight 102.358666 kg 102.529054 kg [facility] [place] Body temperature 36.824643 Kaylie 36.885397 [facility] Respiratory rate 17 /min 17 /min [facility] Oxygen 98 % 98 % [facility] saturation in Medical Arterial blood Center by Pulse oximetry Heart rate 78 /min 78 /min [facility] Body height 177.784397 cm 177.456368 cm [facility] Diastolic blood 78 mm[Hg] 78 mm[Hg] [facility] pressure Medical Center Systolic blood 118 mm[Hg] 118 mm[Hg] [facility] Body mass index 32.2 kg/m2 32.2 kg/m2 [facility] (BMI) [Ratio] Medical Center Body temperature 37.157430 Kaylie 37.966245 [facility] Respiratory rate 18 /min 18 /min [facility] Oxygen 99 % 99 % [facility] saturation in Medical Arterial blood Center by Pulse oximetry Heart rate 88 /min 88 /min [facility] Diastolic blood 79 mm[Hg] 79 mm[Hg] [facility] Systolic blood 134 mm[Hg] 134 mm[Hg] [facility] Body temperature 37.147910 Kaylie 37.937551 [facility] Respiratory rate 18 /min 18 /min [facility] Oxygen 95 % 95 % [facility] saturation in Medical Arterial blood Center by Pulse oximetry Heart rate 82 /min 82 /min [facility] Diastolic blood 79 mm[Hg] 79 mm[Hg] [facility] Systolic blood 144 mm[Hg] 144 mm[Hg] [facility] Body temperature 37.240165 Kaylie 37.336179 [facility] Respiratory rate 18 /min 18 /min [facility] Oxygen 95 % 95 % [facility] saturation in Medical Arterial blood Center by Pulse oximetry Heart rate 86 /min 86 /min [facility] Diastolic blood 92 mm[Hg] 92 mm[Hg] [facility] Systolic blood 112 mm[Hg] 112 mm[Hg] [facility] Body temperature 37.494121 Kaylie 37.541548 [facility] Respiratory rate 19 /min 19 /min [facility] Oxygen 90 % 90 % [facility] saturation in Medical Arterial blood Center by Pulse oximetry Heart rate 84 /min 84 /min [facility] Diastolic blood 92 mm[Hg] 92 mm[Hg] [facility] Systolic blood 142 mm[Hg] 142 mm[Hg] [facility] Body temperature 36.598087 Kaylie 36.260081 [facility] Respiratory rate 20 /min 20 /min [facility] Oxygen 90 % 90 % [facility] saturation in Medical Arterial blood Center by Pulse oximetry Heart rate 88 /min 88 /min [facility] Diastolic blood 97 mm[Hg] 97 mm[Hg] [facility] pressure Medical Center Systolic blood 127 mm[Hg] 127 mm[Hg] [facility] Body temperature 36.307993 Kaylie 36.376127 [facility] Respiratory rate 18 /min 18 /min [facility] Oxygen 99 % 99 % [facility] saturation in Medical Arterial blood Center by Pulse oximetry Heart rate 78 /min 78 /min [facility] Diastolic blood 80 mm[Hg] 80 mm[Hg] [facility] pressure Medical Center Systolic blood 144 mm[Hg] 144 mm[Hg] [facility] [place] Body temperature 36.798854 Kaylie 36.423031 [facility] Respiratory rate 18 /min 18 /min [facility] Oxygen 97 % 97 % [facility] saturation in Medical Arterial blood Center by Pulse oximetry Heart rate 88 /min 88 /min [facility] Diastolic blood 76 mm[Hg] 76 mm[Hg] [facility] Systolic blood 148 mm[Hg] 148 mm[Hg] [facility] [place] Body temperature 36.387675 Kaylie 36.273974 [facility] Respiratory rate 19 /min 19 /min [facility] Oxygen 96 % 96 % [facility] saturation in Medical Arterial blood Center by Pulse oximetry Heart rate 100 /min 100 /min [facility] Diastolic blood 68 mm[Hg] 68 mm[Hg] [facility] Systolic blood 121 mm[Hg] 121 mm[Hg] [facility] [place] Body temperature 37.359403 Kaylie 37.998417 [facility] Respiratory rate 17 /min 17 /min [facility] Oxygen 98 % 98 % [facility] saturation in Medical Arterial blood Center by Pulse oximetry Heart rate 105 /min 105 /min [facility] Diastolic blood 65 mm[Hg] 65 mm[Hg] [facility] pressure Medical Center Systolic blood 119 mm[Hg] 119 mm[Hg] [facility] Body temperature 36.137922 Kaylie 36.782571 [facility] Respiratory rate 17 /min 17 /min [facility] Oxygen 98 % 98 % [facility] saturation in Medical Arterial blood Center by Pulse oximetry Heart rate 100 /min 100 /min [facility] Diastolic blood 73 mm[Hg] 73 mm[Hg] [facility] pressure [facility] Center Systolic blood 121 mm[Hg] 121 mm[Hg] [facility] Body temperature 36.168316 Kaylie 36.923527 [facility] Respiratory rate 17 /min 17 /min [facility] Oxygen 98 % 98 % [facility] saturation in Medical Arterial blood Center by Pulse oximetry Heart rate 69 /min 69 /min [facility] Diastolic blood 75 mm[Hg] 75 mm[Hg] [facility] Systolic blood 129 mm[Hg] 129 mm[Hg] [facility] [place] Body temperature 36.401161 Kaylie 36.047802 [facility] Respiratory rate 18 /min 18 /min [facility] Oxygen 98 % 98 % [facility] saturation in Medical Arterial blood Center by Pulse oximetry Heart rate 82 /min 82 /min [facility] Diastolic blood 73 mm[Hg] 73 mm[Hg] [facility] pressure [facility] Center Systolic blood 128 mm[Hg] 128 mm[Hg] [facility] Body temperature 36.921317 Kaylie 36.273407 [facility] Respiratory rate 18 /min 18 /min [facility] Oxygen 96 % 96 % [facility] saturation in Medical Arterial blood Center by Pulse oximetry Heart rate 81 /min 81 /min [facility] Diastolic blood 78 mm[Hg] 78 mm[Hg] [facility] Systolic blood 126 mm[Hg] 126 mm[Hg] [facility] Body temperature 36.608401 Kaylie 36.592261 [facility] Respiratory rate 18 /min 18 /min [facility] Oxygen 97 % 97 % [facility] saturation in Medical Arterial blood Center by Pulse oximetry Heart rate 79 /min 79 /min [facility] Diastolic blood 72 mm[Hg] 72 mm[Hg] [facility] pressure Medical Center Systolic blood 129 mm[Hg] 129 mm[Hg] [facility] Body temperature 36.013514 Kaylie 36.999662 [facility] Respiratory rate 17 /min 17 /min [facility] Oxygen 98 % 98 % [facility] saturation in Medical Arterial blood Center by Pulse oximetry Heart rate 88 /min 88 /min [facility] Diastolic blood 71 mm[Hg] 71 mm[Hg] [facility] pressure [facility] Center Systolic blood 126 mm[Hg] 126 mm[Hg] [facility] Body temperature 36.784007 Kaylie 36.038121 [facility] Respiratory rate 18 /min 18 /min [facility] Oxygen 98 % 98 % [facility] saturation in Medical Arterial blood Center by Pulse oximetry Heart rate 76 /min 76 /min [facility] Diastolic blood 72 mm[Hg] 72 mm[Hg] [facility] Systolic blood 126 mm[Hg] 126 mm[Hg] [facility] Systolic blood 132 mm[Hg] 132 mm[Hg] [facility] [place] Body temperature 36.464079 Kaylie 36.736631 [facility] Respiratory rate 17 /min 17 /min [facility] Oxygen 97 % 97 % [facility] saturation in Medical Arterial blood Center by Pulse oximetry Heart rate 90 /min 90 /min [facility] Diastolic blood 85 mm[Hg] 85 mm[Hg] [facility] [place] Body temperature 37.182357 Kaylie 37.576947 [facility] Respiratory rate 18 /min 18 /min [facility] Oxygen 95 % 95 % [facility] saturation in Medical Arterial blood Center by Pulse oximetry Heart rate 95 /min 95 /min [facility] Diastolic blood 96 mm[Hg] 96 mm[Hg] [facility] Systolic blood 147 mm[Hg] 147 mm[Hg] [facility] Body temperature 36.405199 Kaylie 36.413189 [facility] Respiratory rate 17 /min 17 /min [facility] Oxygen 95 % 95 % [facility] saturation in Medical Arterial blood Center by Pulse oximetry Heart rate 94 /min 94 /min [facility] Diastolic blood 90 mm[Hg] 90 mm[Hg] [facility] Systolic blood 163 mm[Hg] 163 mm[Hg] [facility] Body temperature 36.783834 Kaylie 36.753382 [facility] Respiratory rate 17 /min 17 /min [facility] Oxygen 98 % 98 % [place] saturation in Medical Arterial blood Center by Pulse oximetry Heart rate 96 /min 96 /min [facility] Diastolic blood 70 mm[Hg] 70 mm[Hg] [facility] pressure [facility] Center Systolic blood 122 mm[Hg] 122 mm[Hg] [facility] Body temperature 36.910331 Kaylie 36.384414 [facility] Respiratory rate 17 /min 17 /min [facility] Oxygen 98 % 98 % [place] saturation in Medical Arterial blood Center by Pulse oximetry Heart rate 70 /min 70 /min [facility] Diastolic blood 65 mm[Hg] 65 mm[Hg] [facility] [place] Systolic blood 127 mm[Hg] 127 mm[Hg] [facility] Body temperature 36.638783 Kaylie 36.834201 [facility] Respiratory rate 16 /min 16 /min [facility] Oxygen 95 % 95 % [place] saturation in Medical Arterial blood Center by Pulse oximetry Heart rate 94 /min 94 /min [facility] Diastolic blood 86 mm[Hg] 86 mm[Hg] [facility] Systolic blood 140 mm[Hg] 140 mm[Hg] [facility] [place] Body temperature 36.469879 Kaylie 36.133407 [facility] Respiratory rate 6 /min 6 /min [facility] Oxygen 96 % 96 % [place] saturation in Medical Arterial blood Center by Pulse oximetry Heart rate 101 /min 101 /min [facility] Diastolic blood 90 mm[Hg] 90 mm[Hg] [facility] pressure [facility] Center Systolic blood 156 mm[Hg] 156 mm[Hg] [facility] [place] Body temperature 36.893277 Kaylie 36.821229 [facility] Diastolic blood 78 mm[Hg] 78 mm[Hg] [facility] pressure [facility] Center Systolic blood 138 mm[Hg] 138 mm[Hg] [facility] Respiratory rate 18 /min 18 /min [facility] Oxygen 97 % 97 % [facility] saturation in Medical Arterial blood Center by Pulse oximetry Heart rate 87 /min 87 /min [facility] Body temperature 36.507687 Kaylie 36.223486 [facility] Respiratory rate 18 /min 18 /min [facility] Oxygen 96 % 96 % [facility] saturation in Medical Arterial blood Center by Pulse oximetry Heart rate 96 /min 96 /min [facility] Diastolic blood 90 mm[Hg] 90 mm[Hg] [facility] pressure [facility] Center Systolic blood 150 mm[Hg] 150 mm[Hg] [facility] Body temperature 37.972862 Kaylie 37.817209 [facility] Respiratory rate 18 /min 18 /min [facility] Oxygen 96 % 96 % [facility] saturation in Medical Arterial blood Center by Pulse oximetry Heart rate 108 /min 108 /min [facility] Diastolic blood 63 mm[Hg] 63 mm[Hg] [facility] Systolic blood 110 mm[Hg] 110 mm[Hg] [facility] Body weight 116.633640 kg 116.6898[address] [facility] Body height 177.230575 cm 177.561895 cm [facility] Body mass index 36.8 kg/m2 36.8 kg/m2 [facility] (BMI) [Ratio] Medical Center Body temperature 36.256182 Kaylie 36.634148 [facility] Respiratory rate 18 /min 18 /min [facility] Oxygen 98 % 98 % [facility] saturation in Medical Arterial blood Center by Pulse oximetry Heart rate 82 /min 82 /min [facility] Diastolic blood 90 mm[Hg] 90 mm[Hg] [facility] Systolic blood 135 mm[Hg] 135 mm[Hg] [facility] Body temperature 36.984908 Kaylie 36.240796 [facility] Respiratory rate 18 /min 18 /min [facility] Oxygen 98 % 98 % [facility] saturation in Medical Arterial blood Center by Pulse oximetry Heart rate 80 /min 80 /min [facility] Diastolic blood 80 mm[Hg] 80 mm[Hg] [facility] Systolic blood 124 mm[Hg] 124 mm[Hg] [facility] Body temperature 37.564126 Kaylie 37.371736 [facility] Respiratory rate 17 /min 17 /min [facility] Oxygen 98 % 98 % [facility] saturation in Medical Arterial blood Center by Pulse oximetry Heart rate 90 /min 90 /min [facility] Diastolic blood 75 mm[Hg] 75 mm[Hg] [facility] pressure [facility] Center Systolic blood 119 mm[Hg] 119 mm[Hg] [facility] Body temperature 37.813035 Kaylie 37.160170 [facility] Respiratory rate 18 /min 18 /min [facility] Oxygen 95 % 95 % [facility] saturation in Medical Arterial blood Center by Pulse oximetry Heart rate 96 /min 96 /min [facility] Diastolic blood 71 mm[Hg] 71 mm[Hg] [facility] Systolic blood 106 mm[Hg] 106 mm[Hg] [facility] Body temperature 37.086758 Kaylie 37.359871 [facility] Respiratory rate 18 /min 18 /min [facility] Oxygen 96 % 96 % [facility] saturation in Medical Arterial blood Center by Pulse oximetry Heart rate 96 /min 96 /min [facility] Diastolic blood 65 mm[Hg] 65 mm[Hg] [facility] pressure [facility] Center Systolic blood 116 mm[Hg] 116 mm[Hg] [facility] Body temperature 36.026215 Kaylie 36.528205 [facility] Respiratory rate 17 /min 17 /min [facility] Oxygen 96 % 96 % [facility] saturation in Medical Arterial blood Center by Pulse oximetry Heart rate 90 /min 90 /min [facility] Diastolic blood 74 mm[Hg] 74 mm[Hg] [facility] pressure [facility] Center Systolic blood 129 mm[Hg] 129 mm[Hg] [facility] Body temperature 37.954389 Kaylie 37.709028 [facility] Respiratory rate 17 /min 17 /min [facility] Oxygen 96 % 96 % [facility] saturation in Medical Arterial blood Center by Pulse oximetry Heart rate 93 /min 93 /min [facility] Diastolic blood 59 mm[Hg] 59 mm[Hg] [facility] Systolic blood 101 mm[Hg] 101 mm[Hg] [facility] Body temperature 37.184632 Kaylie 37.933031 [facility] Respiratory rate 18 /min 18 /min [facility] Oxygen 98 % 98 % [facility] saturation in Medical Arterial blood Center by Pulse oximetry Heart rate 89 /min 89 /min [facility] Diastolic blood 86 mm[Hg] 86 mm[Hg] [facility] pressure [facility] Center Systolic blood 132 mm[Hg] 132 mm[Hg] [facility] Body temperature 37.745068 Kaylie 37.323911 [facility] Respiratory rate 18 /min 18 /min [facility] Oxygen 99 % 99 % [facility] saturation in Medical Arterial blood Center by Pulse oximetry Heart rate 71 /min 71 /min [facility] Diastolic blood 75 mm[Hg] 75 mm[Hg] [facility] [place] Systolic blood 131 mm[Hg] 131 mm[Hg] [facility] Body temperature 37.440102 Kaylie 37.405109 [facility] Respiratory rate 18 /min 18 /min [facility] Oxygen 95 % 95 % [facility] saturation in Medical Arterial blood Center by Pulse oximetry Heart rate 104 /min 104 /min [facility] Diastolic blood 90 mm[Hg] 90 mm[Hg] [facility] [place] Systolic blood 154 mm[Hg] 154 mm[Hg] [facility] [place] Oxygen 96 % 96 % [facility] saturation in Medical Arterial blood Center by Pulse oximetry Heart rate 100 /min 100 /min [facility] Diastolic blood 78 mm[Hg] 78 mm[Hg] [facility] Systolic blood 148 mm[Hg] 148 mm[Hg] [facility] [place] Body temperature 37.655414 Kaylie 37.523513 [facility] Respiratory rate 19 /min 19 /min [facility] Body temperature 36.575733 Kaylie 36.903244 [facility] Respiratory rate 18 /min 18 /min [facility] Oxygen 97 % 97 % [facility] saturation in Medical Arterial blood Center by Pulse oximetry Heart rate 100 /min 100 /min [facility] Diastolic blood 84 mm[Hg] 84 mm[Hg] [facility] Systolic blood 145 mm[Hg] 145 mm[Hg] [facility] Body weight 104.313189 kg 104.969608 kg [facility] Body height 177.125914 cm 177.448090 cm [facility] Body mass index 33.0 kg/m2 33.0 kg/m2 [facility] (BMI) [Ratio] Medical Center Body temperature 36.843040 Kaylie 36.700707 [facility] Respiratory rate 18 /min 18 /min [facility] Oxygen 95 % 95 % [place] saturation in Medical Arterial blood Center by Pulse oximetry Heart rate 99 /min 99 /min [facility] Diastolic blood 60 mm[Hg] 60 mm[Hg] [facility] Systolic blood 112 mm[Hg] 112 mm[Hg] [facility] Body temperature 36.820104 Kaylie 36.458948 [facility] Respiratory rate 18 /min 18 /min [facility] Oxygen 95 % 95 % [facility] saturation in Medical Arterial blood Center by Pulse oximetry Heart rate 89 /min 89 /min [facility] Diastolic blood 62 mm[Hg] 62 mm[Hg] [facility] Systolic blood 102 mm[Hg] 102 mm[Hg] [facility] Body temperature 37.672325 Kaylie 37.719849 [facility] Respiratory rate 17 /min 17 /min [facility] Oxygen 95 % 95 % [facility] saturation in Medical Arterial blood Center by Pulse oximetry Heart rate 92 /min 92 /min [facility] Diastolic blood 66 mm[Hg] 66 mm[Hg] [facility] Systolic blood 102 mm[Hg] 102 mm[Hg] [facility] Body temperature 36.023342 Kaylie 36.659902 [facility] Respiratory rate 17 /min 17 /min [facility] Oxygen 93 % 93 % [facility] saturation in Medical Arterial blood Center by Pulse oximetry Heart rate 69 /min 69 /min [facility] Diastolic blood 69 mm[Hg] 69 mm[Hg] [facility] Systolic blood 125 mm[Hg] 125 mm[Hg] [facility] Body temperature 36.599164 Kaylie 36.809433 [facility] Respiratory rate 18 /min 18 /min [facility] Oxygen 95 % 95 % [facility] saturation in Medical Arterial blood Center by Pulse oximetry Heart rate 67 /min 67 /min [facility] Diastolic blood 68 mm[Hg] 68 mm[Hg] [facility] pressure [facility] Center Systolic blood 125 mm[Hg] 125 mm[Hg] [facility] Body temperature 36.872774 Kaylie 36.587573 [facility] Respiratory rate 17 /min 17 /min [facility] Oxygen 96 % 96 % [facility] saturation in Medical Arterial blood Center by Pulse oximetry Heart rate 89 /min 89 /min [facility] Diastolic blood 88 mm[Hg] 88 mm[Hg] [facility] pressure [facility] Center Systolic blood 143 mm[Hg] 143 mm[Hg] [facility] Oxygen 98 % 98 % [facility] saturation in Medical Arterial blood Center by Pulse oximetry Heart rate 75 /min 75 /min [facility] Diastolic blood 68 mm[Hg] 68 mm[Hg] [facility] pressure [facility] Center Systolic blood 129 mm[Hg] 129 mm[Hg] [facility] [place] Body temperature 37.807609 Kaylie 37.795104 [facility] Respiratory rate 17 /min 17 /min [facility] Respiratory rate 16 /min 16 /min [facility] Oxygen 93 % 93 % [facility] saturation in Medical Arterial blood Center by Pulse oximetry Heart rate 92 /min 92 /min [facility] Diastolic blood 72 mm[Hg] 72 mm[Hg] [facility] pressure [facility] Center Systolic blood 143 mm[Hg] 143 mm[Hg] [facility] Body temperature 37.375241 Kaylie 37.169346 [facility] Respiratory rate 18 /min 18 /min [facility] Oxygen 98 % 98 % [facility] saturation in Medical Arterial blood Center by Pulse oximetry Heart rate 86 /min 86 /min [facility] Diastolic blood 57 mm[Hg] 57 mm[Hg] [facility] pressure [facility] Center Systolic blood 119 mm[Hg] 119 mm[Hg] [facility] Body temperature 37.325095 Kaylie 37.013412 [facility] Respiratory rate 16 /min 16 /min [facility] Oxygen 92 % 92 % [place] saturation in Medical Arterial blood Center by Pulse oximetry Heart rate 88 /min 88 /min [facility] Diastolic blood 56 mm[Hg] 56 mm[Hg] [facility] Systolic blood 90 mm[Hg] 90 mm[Hg] [facility] Body weight 90.298223 kg 90.500303 kg [facility] Body temperature 37.633854 Kaylie 37.445852 [facility] Respiratory rate 19 /min 19 /min [facility] Oxygen 93 % 93 % [facility] saturation in Medical Arterial blood Center by Pulse oximetry Heart rate 84 /min 84 /min [facility] Body height 177.725036 cm 177.940137 cm [facility] Diastolic blood 48 mm[Hg] 48 mm[Hg] [facility] Systolic blood 100 mm[Hg] 100 mm[Hg] [facility] Body mass index 28.4 kg/m2 28.4 kg/m2 [facility] (BMI) [Ratio] Medical Center Body temperature 37.271040 Kaylie 37.309145 [facility] Respiratory rate 18 /min 18 /min [facility] Oxygen 98 % 98 % [facility] saturation in Medical Arterial blood Center by Pulse oximetry Heart rate 89 /min 89 /min [facility] Diastolic blood 78 mm[Hg] 78 mm[Hg] [facility] Systolic blood 145 mm[Hg] 145 mm[Hg] [facility] Body temperature 37.121172 Kaylie 37.584733 [facility] Respiratory rate 20 /min 20 /min [facility] Oxygen 95 % 95 % [facility] saturation in Medical Arterial blood Center by Pulse oximetry Diastolic blood 90 mm[Hg] 90 mm[Hg] [facility] Systolic blood 154 mm[Hg] 154 mm[Hg] [facility] Body temperature 37.520270 Kaylie 37.358741 [facility] Respiratory rate 20 /min 20 /min [facility] Oxygen 95 % 95 % [facility] saturation in Medical Arterial blood Center by Pulse oximetry Heart rate 91 /min 91 /min [facility] Diastolic blood 90 mm[Hg] 90 mm[Hg] [facility] pressure Medical Center Systolic blood 142 mm[Hg] 142 mm[Hg] [facility] Body temperature 36.972751 Kaylie 36.974682 [facility] Respiratory rate 20 /min 20 /min [facility] Oxygen 98 % 98 % [place] saturation in Medical Arterial blood Center by Pulse oximetry Heart rate 95 /min 95 /min [facility] Diastolic blood 61 mm[Hg] 61 mm[Hg] [facility] pressure Medical Center Systolic blood 102 mm[Hg] 102 mm[Hg] [facility] Body temperature 36.493950 Kaylie 36.398820 [facility] Respiratory rate 19 /min 19 /min [facility] Oxygen 96 % 96 % [facility] saturation in Medical Arterial blood Center by Pulse oximetry Heart rate 74 /min 74 /min [facility] Diastolic blood 74 mm[Hg] 74 mm[Hg] [facility] Systolic blood 132 mm[Hg] 132 mm[Hg] [facility] Body weight 79.700461 kg 79.162341 kg [facility] Heart rate 71 /min 71 /min [facility] Body height 182.619395 cm 182.302739 cm [facility] Body mass index 23.7 kg/m2 23.7 kg/m2 [facility] (BMI) [Ratio] Medical Center Body temperature 37.884726 Kaylie 37.690140 [facility] Respiratory rate 18 /min 18 /min [facility] Oxygen 96 % 96 % [facility] saturation in Medical Arterial blood Center by Pulse oximetry Heart rate 87 /min 87 /min [facility] Diastolic blood 69 mm[Hg] 69 mm[Hg] [facility] pressure Medical Center Systolic blood 129 mm[Hg] 129 mm[Hg] [facility] Body temperature 36.509379 Kaylie 36.790370 [facility] Respiratory rate 18 /min 18 /min [facility] Oxygen 95 % 95 % [facility] saturation in Medical Arterial blood Center by Pulse oximetry Heart rate 87 /min 87 /min [facility] Diastolic blood 75 mm[Hg] 75 mm[Hg] [facility] pressure Medical Center Systolic blood 122 mm[Hg] 122 mm[Hg] [facility] Body temperature 37.483449 Kaylie 37.350493 [facility] Respiratory rate 19 /min 19 /min [facility] Oxygen 95 % 95 % [facility] saturation in Medical Arterial blood Center by Pulse oximetry Heart rate 90 /min 90 /min [facility] Diastolic blood 78 mm[Hg] 78 mm[Hg] [facility] pressure Medical Center Systolic blood 124 mm[Hg] 124 mm[Hg] [facility] Body temperature 37.823371 Kaylie 37.063992 [facility] Respiratory rate 19 /min 19 /min [facility] Oxygen 95 % 95 % [facility] saturation in Medical Arterial blood Center by Pulse oximetry Heart rate 85 /min 85 /min [facility] Diastolic blood 70 mm[Hg] 70 mm[Hg] [facility] Systolic blood 129 mm[Hg] 129 mm[Hg] [facility] Body weight 104.891196 kg 104.6609[address] [facility] Body temperature 37.942788 Kaylie 37.804450 [facility] Respiratory rate 86 /min 86 /min [facility] Oxygen 95 % 95 % [place] saturation in Medical Arterial blood Center by Pulse oximetry Heart rate 86 /min 86 /min [facility] Body height 177.544023 cm 177.072133 cm [facility] Diastolic blood 74 mm[Hg] 74 mm[Hg] [facility] Systolic blood 137 mm[Hg] 137 mm[Hg] [facility] Body mass index 33.0 kg/m2 33.0 kg/m2 [facility] (BMI) [Ratio] Medical Center Body temperature 36.025651 Kaylie 36.811776 [facility] Respiratory rate 18 /min 18 /min [facility] Oxygen 92 % 92 % [facility] saturation in Medical Arterial blood Center by Pulse oximetry Heart rate 100 /min 100 /min [facility] Diastolic blood 65 mm[Hg] 65 mm[Hg] [facility] Systolic blood 135 mm[Hg] 135 mm[Hg] [facility] Body temperature 37.737286 Kaylie 37.457308 [facility] Respiratory rate 18 /min 18 /min [facility] Oxygen 95 % 95 % [facility] saturation in Medical Arterial blood Center by Pulse oximetry Heart rate 97 /min 97 /min [facility] Diastolic blood 89 mm[Hg] 89 mm[Hg] [facility] pressure Medical Center Systolic blood 157 mm[Hg] 157 mm[Hg] [facility] Body temperature 37.616335 Kaylie 37.301799 [facility] Respiratory rate 18 /min 18 /min [facility] Oxygen 95 % 95 % [facility] saturation in Medical Arterial blood Center by Pulse oximetry Heart rate 91 /min 91 /min [facility] Diastolic blood 60 mm[Hg] 60 mm[Hg] [facility] Systolic blood 118 mm[Hg] 118 mm[Hg] [facility] Body weight 104.992132 kg 104.7159[address] [facility] Body temperature 36.850357 Kaylie 36.679144 [facility] Respiratory rate 17 /min 17 /min [facility] Oxygen 95 % 95 % [facility] saturation in Medical Arterial blood Center by Pulse oximetry Heart rate 89 /min 89 /min [facility] Body height 177.915225 cm 177.431464 cm [facility] Diastolic blood 88 mm[Hg] 88 mm[Hg] [facility] Systolic blood 127 mm[Hg] 127 mm[Hg] [facility] Body mass index 33.0 kg/m2 33.0 kg/m2 [facility] (BMI) [Ratio] Medical Center Body temperature 36.999178 Kaylie 36.920336 [facility] Respiratory rate 17 /min 17 /min [facility] Oxygen 98 % 98 % [facility] saturation in Medical Arterial blood Center by Pulse oximetry Heart rate 88 /min 88 /min [facility] Diastolic blood 82 mm[Hg] 82 mm[Hg] [facility] Systolic blood 138 mm[Hg] 138 mm[Hg] [facility] Body temperature 36.270634 Kaylie 36.112872 [facility] Respiratory rate 18 /min 18 /min [facility] Oxygen 98 % 98 % [facility] saturation in Medical Arterial blood Center by Pulse oximetry Heart rate 87 /min 87 /min [facility] Diastolic blood 84 mm[Hg] 84 mm[Hg] [facility] pressure [facility] Center Systolic blood 145 mm[Hg] 145 mm[Hg] [facility] Body temperature 36.381591 Kaylie 36.928791 [facility] Respiratory rate 18 /min 18 /min [facility] Oxygen 97 % 97 % [facility] saturation in Medical Arterial blood Center by Pulse oximetry Heart rate 87 /min 87 /min [facility] Diastolic blood 97 mm[Hg] 97 mm[Hg] [facility] [place] Systolic blood 154 mm[Hg] 154 mm[Hg] [facility] Body temperature 36.949639 Kaylie 36.670074 [facility] Respiratory rate 18 /min 18 /min [facility] Oxygen 98 % 98 % [facility] saturation in Medical Arterial blood Center by Pulse oximetry Heart rate 88 /min 88 /min [facility] Diastolic blood 78 mm[Hg] 78 mm[Hg] [facility] [place] Systolic blood 145 mm[Hg] 145 mm[Hg] [facility] Body temperature 36.539172 Kaylie 36.597532 [facility] Respiratory rate 18 /min 18 /min [facility] Oxygen 97 % 97 % [facility] saturation in Medical Arterial blood Center by Pulse oximetry Heart rate 77 /min 77 /min [facility] Diastolic blood 71 mm[Hg] 71 mm[Hg] [facility] Systolic blood 126 mm[Hg] 126 mm[Hg] [facility] Body temperature 36.217430 Kaylie 36.661815 [facility] Respiratory rate 17 /min 17 /min [facility] Oxygen 94 % 94 % [facility] saturation in Medical Arterial blood Center by Pulse oximetry Heart rate 54 /min 54 /min [facility] Diastolic blood 64 mm[Hg] 64 mm[Hg] [facility] pressure [facility] Center Systolic blood 113 mm[Hg] 113 mm[Hg] [facility] Respiratory rate 16 /min 16 /min [facility] Oxygen 97 % 97 % [facility] saturation in Medical Arterial blood Center by Pulse oximetry Heart rate 52 /min 52 /min [facility] Diastolic blood 80 mm[Hg] 80 mm[Hg] [facility] pressure [facility] Center Systolic blood 130 mm[Hg] 130 mm[Hg] [facility] [place] Body temperature 36.147030 Kaylie 36.770258 [facility] Respiratory rate 18 /min 18 /min [facility] Oxygen 96 % 96 % [facility] saturation in Medical Arterial blood Center by Pulse oximetry Heart rate 96 /min 96 /min [facility] Diastolic blood 75 mm[Hg] 75 mm[Hg] [facility] pressure [facility] Center Systolic blood 129 mm[Hg] 129 mm[Hg] [facility] [place] Body temperature 37.002682 Kaylie 37.748528 [facility] Respiratory rate 19 /min 19 /min [facility] Oxygen 96 % 96 % [place] saturation in Medical Arterial blood Center by Pulse oximetry Heart rate 98 /min 98 /min [facility] Diastolic blood 77 mm[Hg] 77 mm[Hg] [facility] Systolic blood 132 mm[Hg] 132 mm[Hg] [facility] Body temperature 36.711972 Kaylie 36.634020 [facility] Respiratory rate 16 /min 16 /min [facility] Oxygen 95 % 95 % [place] saturation in Medical Arterial blood Center by Pulse oximetry Heart rate 95 /min 95 /min [facility] Diastolic blood 70 mm[Hg] 70 mm[Hg] [facility] pressure [facility] Center Systolic blood 118 mm[Hg] 118 mm[Hg] [facility] [place] Body temperature 36.911948 Kaylie 36.070395 [facility] Respiratory rate 18 /min 18 /min [facility] Oxygen 96 % 96 % [facility] saturation in Medical Arterial blood Center by Pulse oximetry Heart rate 100 /min 100 /min [facility] Diastolic blood 72 mm[Hg] 72 mm[Hg] [facility] Systolic blood 126 mm[Hg] 126 mm[Hg] [facility] Body temperature 36.661801 Kaylie 36.346363 [facility] Respiratory rate 18 /min 18 /min [facility] Oxygen 97 % 97 % [facility] saturation in Medical Arterial blood Center by Pulse oximetry Heart rate 88 /min 88 /min [facility] Diastolic blood 75 mm[Hg] 75 mm[Hg] [facility] Systolic blood 145 mm[Hg] 145 mm[Hg] [facility] [place] Body temperature 36.749952 Kaylie 36.587871 [facility] Respiratory rate 18 /min 18 /min [facility] Oxygen 97 % 97 % [facility] saturation in Medical Arterial blood Center by Pulse oximetry Heart rate 88 /min 88 /min [facility] Diastolic blood 73 mm[Hg] 73 mm[Hg] [facility] [place] Systolic blood 128 mm[Hg] 128 mm[Hg] [facility] Body temperature 36.633337 Kaylie 36.732481 [facility] Respiratory rate 18 /min 18 /min [facility] Oxygen 96 % 96 % [facility] saturation in Medical Arterial blood Center by Pulse oximetry Heart rate 95 /min 95 /min [facility] Diastolic blood 89 mm[Hg] 89 mm[Hg] [facility] [place] Systolic blood 131 mm[Hg] 131 mm[Hg] [facility] Body temperature 37.413721 Kaylie 37.426225 [facility] Respiratory rate 18 /min 18 /min [facility] Oxygen 98 % 98 % [facility] saturation in Medical Arterial blood Center by Pulse oximetry Heart rate 89 /min 89 /min [facility] Diastolic blood 78 mm[Hg] 78 mm[Hg] [facility] Systolic blood 145 mm[Hg] 145 mm[Hg] [facility] [place] Body temperature 36.536757 Kaylie 36.007989 [facility] Respiratory rate 18 /min 18 /min [facility] Oxygen 97 % 97 % [facility] saturation in Medical Arterial blood Center by Pulse oximetry Heart rate 92 /min 92 /min [facility] Diastolic blood 95 mm[Hg] 95 mm[Hg] [facility] pressure [facility] Center Systolic blood 150 mm[Hg] 150 mm[Hg] [facility] Body temperature 36.426199 Kaylie 36.118306 [facility] Respiratory rate 18 /min 18 /min [facility] Oxygen 95 % 95 % [facility] saturation in Medical Arterial blood Center by Pulse oximetry Heart rate 88 /min 88 /min [facility] Diastolic blood 83 mm[Hg] 83 mm[Hg] [facility] Systolic blood 139 mm[Hg] 139 mm[Hg] [facility] Body temperature 36.037194 Kaylie 36.006016 [facility] Respiratory rate 19 /min 19 /min [facility] Oxygen 97 % 97 % [facility] saturation in Medical Arterial blood Center by Pulse oximetry Heart rate 87 /min 87 /min [facility] Diastolic blood 95 mm[Hg] 95 mm[Hg] [facility] pressure Medical [place] Systolic blood 137 mm[Hg] 137 mm[Hg] [facility] [place] Body temperature 36.888277 Kaylie 36.700203 [facility] Respiratory rate 18 /min 18 /min [facility] Oxygen 97 % 97 % [facility] saturation in Medical Arterial blood Center by Pulse oximetry Heart rate 82 /min 82 /min [facility] Diastolic blood 84 mm[Hg] 84 mm[Hg] [facility] Systolic blood 122 mm[Hg] 122 mm[Hg] [facility] Body temperature 36.670615 Kaylie 36.828207 [facility] Respiratory rate 18 /min 18 /min [facility] Oxygen 98 % 98 % [facility] saturation in Medical Arterial blood Center by Pulse oximetry Heart rate 89 /min 89 /min [facility] Diastolic blood 74 mm[Hg] 74 mm[Hg] [facility] Systolic blood 124 mm[Hg] 124 mm[Hg] [facility] [place] Body temperature 36.589947 Kaylie 36.884438 [facility] Respiratory rate 19 /min 19 /min [facility] Oxygen 98 % 98 % [facility] saturation in Medical Arterial blood Center by Pulse oximetry Heart rate 85 /min 85 /min [facility] Diastolic blood 79 mm[Hg] 79 mm[Hg] [facility] Systolic blood 136 mm[Hg] 136 mm[Hg] [facility] Body temperature 37.948606 Kaylie 37.403568 [facility] Respiratory rate 17 /min 17 /min [facility] Oxygen 97 % 97 % [facility] saturation in Medical Arterial blood Center by Pulse oximetry Heart rate 77 /min 77 /min [facility] Diastolic blood 74 mm[Hg] 74 mm[Hg] [facility] Systolic blood 109 mm[Hg] 109 mm[Hg] [facility] Body temperature 36.366086 Kaylie 36.347815 [facility] Respiratory rate 18 /min 18 /min [facility] Oxygen 96 % 96 % [facility] saturation in Medical Arterial blood Center by Pulse oximetry Heart rate 82 /min 82 /min [facility] Diastolic blood 79 mm[Hg] 79 mm[Hg] [facility] Systolic blood 112 mm[Hg] 112 mm[Hg] [facility] Body weight 80.858109 kg 80.340401 kg [facility] Measured [facility] Body height 172.620905 cm 172.006889 cm [facility] Body mass index 26.8 kg/m2 26.8 kg/m2 [facility] (BMI) [Ratio] Medical Center Body weight 80.848970 kg 80.174830 kg [facility] Measured [facility] Body height 172.478981 cm 172.927397 cm [facility] Body mass index 26.8 kg/m2 26.8 kg/m2 [facility] (BMI) [Ratio] Medical Center Body temperature 36.351971 Kaylie 36.115799 [facility] Respiratory rate 19 /min 19 /min [facility] Oxygen 100 % 100 % [place] saturation in Medical Arterial blood Center by Pulse oximetry Heart rate 85 /min 85 /min [facility] Diastolic blood 77 mm[Hg] 77 mm[Hg] [facility] Systolic blood 117 mm[Hg] 117 mm[Hg] [facility] Body temperature 37.742151 Kaylie 37.920252 [facility] Respiratory rate 18 /min 18 /min [facility] Oxygen 95 % 95 % [facility] saturation in Medical Arterial blood Center by Pulse oximetry Heart rate 76 /min 76 /min [facility] Diastolic blood 64 mm[Hg] 64 mm[Hg] [facility] pressure [facility] Center Systolic blood 125 mm[Hg] 125 mm[Hg] [facility] Body temperature 37.435080 Kaylie 37.409292 [facility] Respiratory rate 19 /min 19 /min [facility] Oxygen 95 % 95 % [facility] saturation in Medical Arterial blood Center by Pulse oximetry Heart rate 77 /min 77 /min [facility] Diastolic blood 63 mm[Hg] 63 mm[Hg] [facility] pressure [facility] Center Systolic blood 113 mm[Hg] 113 mm[Hg] [facility] Body weight 104.920371 kg 104.162006 kg [facility] Body temperature 36.177222 Kaylie 36.080293 [facility] Respiratory rate 17 /min 17 /min [facility] Oxygen 92 % 92 % [facility] saturation in Medical Arterial blood Center by Pulse oximetry Heart rate 84 /min 84 /min [facility] Body height 177.263500 cm 177.028009 cm [facility] Diastolic blood 83 mm[Hg] 83 mm[Hg] [facility] pressure [facility] Center Systolic blood 136 mm[Hg] 136 mm[Hg] [facility] Body mass index 33.0 kg/m2 33.0 kg/m2 [facility] (BMI) [Ratio] Medical Center Body temperature 36.252662 Kaylie 36.152876 [facility] Respiratory rate 19 /min 19 /min [facility] Oxygen 96 % 96 % [facility] saturation in Medical Arterial blood Center by Pulse oximetry Heart rate 89 /min 89 /min [facility] Diastolic blood 70 mm[Hg] 70 mm[Hg] [facility] pressure [facility] Center Systolic blood 137 mm[Hg] 137 mm[Hg] [facility] Body temperature 36.330284 Kaylie 36.264480 [facility] Respiratory rate 18 /min 18 /min [facility] Oxygen 99 % 99 % [facility] saturation in Medical Arterial blood Center by Pulse oximetry Heart rate 78 /min 78 /min [facility] Diastolic blood 78 mm[Hg] 78 mm[Hg] [facility] pressure [facility] Center Systolic blood 144 mm[Hg] 144 mm[Hg] [facility] Oxygen 99 % 99 % [facility] saturation in Medical Arterial blood Center by Pulse oximetry Respiratory rate 18 /min 18 /min [facility] Oxygen 90 % 90 % [facility] saturation in Medical Arterial blood Center by Pulse oximetry Heart rate 72 /min 72 /min [facility] Diastolic blood 66 mm[Hg] 66 mm[Hg] [facility] pressure [facility] Center Systolic blood 144 mm[Hg] 144 mm[Hg] [facility] Body temperature 36.663015 Kaylie 36.649763 [facility] Respiratory rate 18 /min 18 /min [facility] Heart rate 80 /min 80 /min [facility] Diastolic blood 82 mm[Hg] 82 mm[Hg] [facility] pressure [facility] Center Systolic blood 141 mm[Hg] 141 mm[Hg] [facility] Body temperature 36.897351 Kaylie 36.612591 [facility] Oxygen 92 % 92 % [facility] saturation in Medical Arterial blood Center by Pulse oximetry Heart rate 79 /min 79 /min [facility] Diastolic blood 84 mm[Hg] 84 mm[Hg] [facility] Systolic blood 139 mm[Hg] 139 mm[Hg] [facility] Systolic blood 159 mm[Hg] 159 mm[Hg] [facility] Body mass index 33.0 kg/m2 33.0 kg/m2 [facility] (BMI) [Ratio] Medical Center Body weight 104.056816 kg 104.461012 kg [facility] Body temperature 37.202989 Kaylie 37.204114 [facility] Respiratory rate 18 /min 18 /min [facility] Oxygen 97 % 97 % [facility] saturation in Medical Arterial blood Center by Pulse oximetry Heart rate 69 /min 69 /min [facility] Body height 177.524208 cm 177.627405 cm [facility] Diastolic blood 100 mm[Hg] 100 mm[Hg] [facility] Body temperature 36.176848 Kaylie 36.120194 [facility] Respiratory rate 18 /min 18 /min [facility] Oxygen 97 % 97 % [facility] saturation in Medical Arterial blood Center by Pulse oximetry Heart rate 88 /min 88 /min [facility] Diastolic blood 97 mm[Hg] 97 mm[Hg] [facility] pressure [facility] Center Systolic blood 152 mm[Hg] 152 mm[Hg] [facility] [place] Body temperature 37.673453 Kaylie 37.842649 [facility] Respiratory rate 18 /min 18 /min [facility] Oxygen 97 % 97 % [place] saturation in Medical Arterial blood Center by Pulse oximetry Heart rate 87 /min 87 /min [facility] Diastolic blood 87 mm[Hg] 87 mm[Hg] [facility] Systolic blood 145 mm[Hg] 145 mm[Hg] [facility] [place] Body temperature 36.993063 Kaylie 36.726191 [facility] Respiratory rate 17 /min 17 /min [facility] Oxygen 94 % 94 % [facility] saturation in Medical Arterial blood Center by Pulse oximetry Heart rate 98 /min 98 /min [facility] Diastolic blood 68 mm[Hg] 68 mm[Hg] [facility] [place] Systolic blood 144 mm[Hg] 144 mm[Hg] [facility] Body temperature 36.733961 Kaylie 36.806518 [facility] Respiratory rate 18 /min 18 /min [facility] Oxygen 97 % 97 % [facility] saturation in Medical Arterial blood Center by Pulse oximetry Heart rate 88 /min 88 /min [facility] Diastolic blood 72 mm[Hg] 72 mm[Hg] [facility] pressure [facility] Center Systolic blood 144 mm[Hg] 144 mm[Hg] [facility] Body temperature 36.159856 Kaylie 36.617290 [facility] Respiratory rate 19 /min 19 /min [facility] Heart rate 90 /min 90 /min [facility] Diastolic blood 74 mm[Hg] 74 mm[Hg] [facility] Systolic blood 121 mm[Hg] 121 mm[Hg] [facility] Body temperature 37.263934 Kaylie 37.780967 [facility] Respiratory rate 17 /min 17 /min [facility] Oxygen 89 % 89 % [facility] saturation in Medical Arterial blood Center by Pulse oximetry Heart rate 110 /min 110 /min [facility] Diastolic blood 76 mm[Hg] 76 mm[Hg] [facility] pressure Medical Center Systolic blood 115 mm[Hg] 115 mm[Hg] [facility] Body temperature 36.723369 Kaylie 36.319891 [facility] Respiratory rate 18 /min 18 /min [facility] Oxygen 100 % 100 % [facility] saturation in Medical Arterial blood Center by Pulse oximetry Heart rate 80 /min 80 /min [facility] Diastolic blood 78 mm[Hg] 78 mm[Hg] [facility] pressure [facility] Center Systolic blood 128 mm[Hg] 128 mm[Hg] [facility] Body temperature 36.334051 Kaylie 36.925661 [facility] Respiratory rate 19 /min 19 /min [facility] Oxygen 96 % 96 % [facility] saturation in Medical Arterial blood Center by Pulse oximetry Heart rate 69 /min 69 /min [facility] Diastolic blood 78 mm[Hg] 78 mm[Hg] [facility] pressure Medical Center Systolic blood 128 mm[Hg] 128 mm[Hg] [facility] Body weight 95.156466 kg 95.475948 kg [facility] Body temperature 36.318282 Kaylie 36.439201 [facility] Respiratory rate 18 /min 18 /min [facility] Oxygen 96 % 96 % [facility] saturation in Medical Arterial blood Center by Pulse oximetry Heart rate 95 /min 95 /min [facility] Body height 182.043254 cm 182.624012 cm [facility] Diastolic blood 80 mm[Hg] 80 mm[Hg] [facility] pressure Medical Center Systolic blood 130 mm[Hg] 130 mm[Hg] [facility] Body mass index 28.4 kg/m2 28.4 kg/m2 [facility] (BMI) [Ratio] [facility] Center Body temperature 36.737233 Kaylie 36.647062 [facility] Respiratory rate 16 /min 16 /min [facility] Oxygen 97 % 97 % [facility] saturation in Medical Arterial blood Center by Pulse oximetry Heart rate 74 /min 74 /min [facility] Diastolic blood 77 mm[Hg] 77 mm[Hg] [facility] pressure [facility] Center Systolic blood 131 mm[Hg] 131 mm[Hg] [facility] Body temperature 36.710977 Kaylie 36.232883 [facility] Respiratory rate 18 /min 18 /min [facility] Oxygen 99 % 99 % [facility] saturation in Medical Arterial blood Center by Pulse oximetry Heart rate 82 /min 82 /min [facility] Diastolic blood 82 mm[Hg] 82 mm[Hg] [facility] pressure Medical Center Systolic blood 135 mm[Hg] 135 mm[Hg] [facility] Body weight 120.959187 kg 120.342670 kg [facility] Body temperature 36.134642 Kaylie 36.673215 [facility] Respiratory rate 16 /min 16 /min [facility] Oxygen 96 % 96 % [facility] saturation in Medical Arterial blood Center by Pulse oximetry Heart rate 67 /min 67 /min [facility] Diastolic blood 67 mm[Hg] 67 mm[Hg] [facility] Systolic blood 115 mm[Hg] 115 mm[Hg] [facility] Oxygen 90 % 90 % [facility] saturation in Medical Arterial blood Center by Pulse oximetry Heart rate 109 /min 109 /min [facility] Diastolic blood 62 mm[Hg] 62 mm[Hg] [facility] Systolic blood 103 mm[Hg] 103 mm[Hg] [facility] Body temperature 37.975340 Kaylie 37.889042 [facility] Respiratory rate 18 /min 18 /min [facility] Body weight 113.011733 kg 113.886197 kg [facility] Body temperature 36.819829 Kaylie 36.953723 [facility] Respiratory rate 18 /min 18 /min [facility] Oxygen 96 % 96 % [facility] saturation in Medical Arterial blood Center by Pulse oximetry Heart rate 82 /min 82 /min [facility] Body height 177.568647 cm 177.739331 cm [facility] Diastolic blood 82 mm[Hg] 82 mm[Hg] [facility] pressure Medical Center Systolic blood 136 mm[Hg] 136 mm[Hg] [facility] Body mass index 35.8 kg/m2 35.8 kg/m2 [facility] (BMI) [Ratio] Medical Center Body temperature 37.780505 Kaylie 37.494438 [facility] Respiratory rate 18 /min 18 /min [facility] Oxygen 96 % 96 % [facility] saturation in Medical Arterial blood Center by Pulse oximetry Heart rate 88 /min 88 /min [facility] Diastolic blood 86 mm[Hg] 86 mm[Hg] [facility] pressure [facility] Center Systolic blood 118 mm[Hg] 118 mm[Hg] [facility] Body temperature 36.775965 Kaylie 36.007199 [facility] Respiratory rate 18 /min 18 /min [facility] Oxygen 98 % 98 % [facility] saturation in Medical Arterial blood Center by Pulse oximetry Heart rate 79 /min 79 /min [facility] Diastolic blood 78 mm[Hg] 78 mm[Hg] [facility] pressure Medical Center Systolic blood 121 mm[Hg] 121 mm[Hg] [facility] Body temperature 36.492962 Kaylie 36.215818 [facility] Respiratory rate 19 /min 19 /min [facility] Oxygen 96 % 96 % [place] saturation in Medical Arterial blood Center by Pulse oximetry Heart rate 81 /min 81 /min [facility] Diastolic blood 74 mm[Hg] 74 mm[Hg] [facility] pressure Medical Center Systolic blood 118 mm[Hg] 118 mm[Hg] [facility] Body temperature 37.747304 Kaylie 37.715448 [facility] Respiratory rate 18 /min 18 /min [facility] Oxygen 96 % 96 % [place] saturation in Medical Arterial blood Center by Pulse oximetry Heart rate 96 /min 96 /min [facility] Diastolic blood 59 mm[Hg] 59 mm[Hg] [facility] pressure Medical Center Systolic blood 94 mm[Hg] 94 mm[Hg] [facility] Body temperature 37.716057 Kaylie 37.450381 [facility] Respiratory rate 19 /min 19 /min [facility] Oxygen 95 % 95 % [place] saturation in Medical Arterial blood Center by Pulse oximetry Heart rate 88 /min 88 /min [facility] Diastolic blood 53 mm[Hg] 53 mm[Hg] [facility] Systolic blood 93 mm[Hg] 93 mm[Hg] [facility] Body weight 74.796006 kg 74.153228 kg [facility] Body temperature 36.051022 Kaylie 36.756852 [facility] Respiratory rate 18 /min 18 /min [facility] Oxygen 100 % 100 % [facility] saturation in Medical Arterial blood Center by Pulse oximetry Heart rate 94 /min 94 /min [facility] Body height 182.997805 cm 182.161071 cm [facility] Diastolic blood 59 mm[Hg] 59 mm[Hg] [facility] Systolic blood 100 mm[Hg] 100 mm[Hg] [facility] Body mass index 22.3 kg/m2 22.3 kg/m2 [facility] (BMI) [Ratio] Medical Center Body temperature 37.468791 Kaylie 37.490816 [facility] Respiratory rate 18 /min 18 /min [facility] Oxygen 95 % 95 % [place] saturation in Medical Arterial blood Center by Pulse oximetry Heart rate 88 /min 88 /min [facility] Diastolic blood 78 mm[Hg] 78 mm[Hg] [facility] Systolic blood 132 mm[Hg] 132 mm[Hg] [facility] Body temperature 37.875158 Kaylie 37.819591 [facility] Respiratory rate 17 /min 17 /min [facility] Oxygen 94 % 94 % [place] saturation in Medical Arterial blood Center by Pulse oximetry Heart rate 80 /min 80 /min [facility] Diastolic blood 84 mm[Hg] 84 mm[Hg] [facility] Systolic blood 134 mm[Hg] 134 mm[Hg] [facility] Body temperature 37.491013 Kaylie 37.775547 [facility] Respiratory rate 19 /min 19 /min [facility] Oxygen 95 % 95 % [facility] saturation in Medical Arterial blood Center by Pulse oximetry Heart rate 87 /min 87 /min [facility] Diastolic blood 75 mm[Hg] 75 mm[Hg] [facility] pressure Medical Center Systolic blood 137 mm[Hg] 137 mm[Hg] [facility] Body temperature 36.998604 Kaylie 36.011163 [facility] Respiratory rate 18 /min 18 /min [facility] Oxygen 93 % 93 % [facility] saturation in Medical Arterial blood Center by Pulse oximetry Heart rate 81 /min 81 /min [facility] Diastolic blood 77 mm[Hg] 77 mm[Hg] [facility] pressure [facility] Center Systolic blood 137 mm[Hg] 137 mm[Hg] [facility] Body temperature 37.174242 Kaylie 37.224707 [facility] Respiratory rate 19 /min 19 /min [facility] Oxygen 96 % 96 % [facility] saturation in Medical Arterial blood Center by Pulse oximetry Heart rate 96 /min 96 /min [facility] Diastolic blood 75 mm[Hg] 75 mm[Hg] [facility] pressure [facility] Center Systolic blood 129 mm[Hg] 129 mm[Hg] [facility] [place] Body temperature 37.512204 Kaylie 37.258662 [facility] Respiratory rate 18 /min 18 /min [facility] Oxygen 97 % 97 % [facility] saturation in Medical Arterial blood Center by Pulse oximetry Heart rate 99 /min 99 /min [facility] Diastolic blood 72 mm[Hg] 72 mm[Hg] [facility] pressure [facility] Center Systolic blood 131 mm[Hg] 131 mm[Hg] [facility] Body temperature 37.579009 Kaylie 37.596194 [facility] Respiratory rate 19 /min 19 /min [facility] Oxygen 98 % 98 % [facility] saturation in Medical Arterial blood Center by Pulse oximetry Heart rate 84 /min 84 /min [facility] Diastolic blood 85 mm[Hg] 85 mm[Hg] [facility] pressure Medical Center Systolic blood 131 mm[Hg] 131 mm[Hg] [facility] Body temperature 37.928748 Kaylie 37.239787 [facility] Respiratory rate 18 /min 18 /min [facility] Oxygen 98 % 98 % [facility] saturation in Medical Arterial blood Center by Pulse oximetry Heart rate 85 /min 85 /min [facility] Diastolic blood 88 mm[Hg] 88 mm[Hg] [facility] pressure [facility] Center Systolic blood 126 mm[Hg] 126 mm[Hg] [facility] Body temperature 37.037364 Kaylie 37.096773 [facility] Respiratory rate 18 /min 18 /min [facility] Oxygen 98 % 98 % [facility] saturation in Medical Arterial blood Center by Pulse oximetry Heart rate 90 /min 90 /min [facility] Diastolic blood 85 mm[Hg] 85 mm[Hg] [facility] Systolic blood 139 mm[Hg] 139 mm[Hg] [facility] Body weight 85.897773 kg 85.160001 kg [facility] Body height 177.774972 cm 177.556341 cm [facility] Body mass index 26.8 kg/m2 26.8 kg/m2 [facility] (BMI) [Ratio] Medical Center Body temperature 36.971983 Kaylie 36.675365 [facility] Respiratory rate 16 /min 16 /min [facility] Oxygen 96 % 96 % [place] saturation in Medical Arterial blood Center by Pulse oximetry Heart rate 71 /min 71 /min [facility] Diastolic blood 66 mm[Hg] 66 mm[Hg] [facility] Systolic blood 115 mm[Hg] 115 mm[Hg] [facility] Body temperature 36.392227 Kaylie 36.504117 [facility] Respiratory rate 16 /min 16 /min [facility] Oxygen 96 % 96 % [facility] saturation in Medical Arterial blood Center by Pulse oximetry Heart rate 75 /min 75 /min [facility] Diastolic blood 74 mm[Hg] 74 mm[Hg] [facility] pressure [facility] Center Systolic blood 121 mm[Hg] 121 mm[Hg] [facility] Body temperature 36.149907 Kaylie 36.032411 [facility] Respiratory rate 17 /min 17 /min [facility] Oxygen 98 % 98 % [facility] saturation in Medical Arterial blood Center by Pulse oximetry Heart rate 84 /min 84 /min [facility] Diastolic blood 70 mm[Hg] 70 mm[Hg] [facility] Systolic blood 118 mm[Hg] 118 mm[Hg] [facility] Body temperature 37.826018 Kaylie 37.355593 [facility] Respiratory rate 18 /min 18 /min [facility] Oxygen 97 % 97 % [facility] saturation in Medical Arterial blood Center by Pulse oximetry Heart rate 86 /min 86 /min [facility] Diastolic blood 87 mm[Hg] 87 mm[Hg] [facility] pressure Medical [place] Systolic blood 136 mm[Hg] 136 mm[Hg] [facility] [place] Body temperature 36.275194 Kaylie 36.044338 [facility] Respiratory rate 18 /min 18 /min [facility] Heart rate 89 /min 89 /min [facility] Diastolic blood 90 mm[Hg] 90 mm[Hg] [facility] [place] Systolic blood 134 mm[Hg] 134 mm[Hg] [facility] [place] Body temperature 36.803378 Kaylie 36.094916 [facility] Respiratory rate 18 /min 18 /min [facility] Heart rate 94 /min 94 /min [facility] Diastolic blood 83 mm[Hg] 83 mm[Hg] [facility] Systolic blood 136 mm[Hg] 136 mm[Hg] [facility] Body temperature 37.979427 Kaylie 37.240024 [facility] Respiratory rate 20 /min 20 /min [facility] Heart rate 87 /min 87 /min [facility] Diastolic blood 73 mm[Hg] 73 mm[Hg] [facility] pressure [facility] Center Systolic blood 132 mm[Hg] 132 mm[Hg] [facility] [place] Body temperature 36.418077 Kaylie 36.699540 [facility] Respiratory rate 20 /min 20 /min [facility] Heart rate 82 /min 82 /min [facility] Diastolic blood 81 mm[Hg] 81 mm[Hg] [facility] Systolic blood 123 mm[Hg] 123 mm[Hg] [facility] Oxygen 94 % 94 % [facility] saturation in Medical Arterial blood Center by Pulse oximetry Body temperature 36.129164 Kaylie 36.541061 [facility] Respiratory rate 17 /min 17 /min [facility] Heart rate 91 /min 91 /min [facility] Diastolic blood 79 mm[Hg] 79 mm[Hg] [facility] pressure Medical Center Systolic blood 143 mm[Hg] 143 mm[Hg] [facility] [place] Body weight 104.646046 kg 104.301307 kg [facility] [place] Body temperature 36.537835 Kaylie 36.820352 [facility] Respiratory rate 17 /min 17 /min [facility] Oxygen 98 % 98 % [facility] saturation in Medical Arterial blood Center by Pulse oximetry Heart rate 94 /min 94 /min [facility] Diastolic blood 74 mm[Hg] 74 mm[Hg] [facility] [place] Systolic blood 106 mm[Hg] 106 mm[Hg] [facility] Body temperature 36.186117 Kaylie 36.951946 [facility] Respiratory rate 17 /min 17 /min [facility] Oxygen 96 % 96 % [facility] saturation in Medical Arterial blood Center by Pulse oximetry Heart rate 98 /min 98 /min [facility] Diastolic blood 76 mm[Hg] 76 mm[Hg] [facility] [place] Systolic blood 134 mm[Hg] 134 mm[Hg] [facility] Respiratory rate 18 /min 18 /min [facility] Oxygen 97 % 97 % [facility] saturation in Medical Arterial blood Center by Pulse oximetry Heart rate 78 /min 78 /min [facility] Diastolic blood 68 mm[Hg] 68 mm[Hg] [facility] Systolic blood 126 mm[Hg] 126 mm[Hg] [facility] [place] Body temperature 36.919038 Kaylie 36.861894 [facility] Respiratory rate 18 /min 18 /min [facility] Oxygen 100 % 100 % [facility] saturation in Medical Arterial blood Center by Pulse oximetry Heart rate 71 /min 71 /min [facility] Diastolic blood 66 mm[Hg] 66 mm[Hg] [facility] Systolic blood 125 mm[Hg] 125 mm[Hg] [facility] Body temperature 36.469279 Kaylie 36.273434 [facility] Respiratory rate 18 /min 18 /min [facility] Oxygen 99 % 99 % [facility] saturation in Medical Arterial blood Center by Pulse oximetry Heart rate 89 /min 89 /min [facility] Diastolic blood 81 mm[Hg] 81 mm[Hg] [facility] Systolic blood 132 mm[Hg] 132 mm[Hg] [facility] Body temperature 36.175601 Kaylie 36.827152 [facility] Respiratory rate 17 /min 17 /min [facility] Oxygen 97 % 97 % [place] saturation in Medical Arterial blood Center by Pulse oximetry Heart rate 86 /min 86 /min [facility] Diastolic blood 50 mm[Hg] 50 mm[Hg] [facility] Systolic blood 80 mm[Hg] 80 mm[Hg] [facility] Body temperature 37.799818 Kaylie 37.120003 [facility] Respiratory rate 18 /min 18 /min [facility] Oxygen 91 % 91 % [facility] saturation in Medical Arterial blood Center by Pulse oximetry Heart rate 82 /min 82 /min [facility] Diastolic blood 56 mm[Hg] 56 mm[Hg] [facility] Systolic blood 103 mm[Hg] 103 mm[Hg] [facility] Body weight 94.730848 kg 94.024407 kg [facility] Body temperature 37.395710 Kaylie 37.944901 [facility] Respiratory rate 18 /min 18 /min [facility] Oxygen 88 % 88 % [facility] saturation in Medical Arterial blood Center by Pulse oximetry Heart rate 80 /min 80 /min [facility] Body height 177.864571 cm 177.904033 cm [facility] Diastolic blood 74 mm[Hg] 74 mm[Hg] [facility] Systolic blood 104 mm[Hg] 104 mm[Hg] [facility] Body mass index 29.8 kg/m2 29.8 kg/m2 [facility] (BMI) [Ratio] Medical Center ID Date Data Source [id number] 02/27/2020 10:28:08 PM EDT [facility] Name Value Range Interpretation Code Description Data Source(s) Body weight Measured 233 lb 233 lb [facility] Patient Treatment Plan of Care Planned Activity Planned Date Details Description Data Source (s) 0.9% NaCl IV 08/16/2019 05:17:42 PM [facility] [employer] [facility] 0.9% NaCl IV 08/16/2019 05:17:42 PM [facility] [employer] [facility]
[2020-03-28] MEDS ORDERED: LIDOCAINE PATCH REMOVAL MC SCH (22:00)
--- NOTE | 2020-03-28 22:58 | PDOC ---
History of Present Illness - General Chief Complaint: Chronic pain Stated Complaint: BACK PAIN Time Seen by Provider: 03/28/20 19:27 - History of Present Illness Initial Comments: 03/28/20 22:57 HPI: 65 y/o M with hx of COVID-19, mesothelioma with long history of EtOH abuse, chronic back pain, and multiple ER visits and admission secondary to EtOH abuse is presenting with back pain and left sided chest pain. Back pain is the same as his chronic back pain and is unchanged in nature without radiation. Chest pain is also similar to his previous pain. No SOB, fever, chills, abd pain, diaphoresis, n,v. Last drink was 3 days PMHx: as noted above ROS: as noted SHx: Denies tobacco use; + alcohol use; no rec drugs Allergies: NKDA ROS: GENERAL/CONSTITUTIONAL: No fever or chills. No weakness. HEAD, EYES, EARS, NOSE AND THROAT: No change in vision. No ear pain or discharge. No sore throat. CARDIOVASCULAR: +chest pain; no shortness of breath RESPIRATORY: No cough, wheezing, or hemoptysis. GASTROINTESTINAL: No nausea, vomiting, diarrhea or constipation. GENITOURINARY: No dysuria, frequency, or change in urination. MUSCULOSKELETAL: +back pain. SKIN: No rash NEUROLOGIC: No headache, vertigo, loss of consciousness, or change in strength/sensation. ENDOCRINE: No increased thirst. No abnormal weight change HEMATOLOGIC/LYMPHATIC: No anemia, easy bleeding, or history of blood clots. ALLERGIC/IMMUNOLOGIC: No hives or skin allergy. PE: GENERAL: Awake, alert, disheveled HEAD: No signs of trauma, normocephalic, atraumatic EYES: EOMI, sclera anicteric, conjunctiva clear ENT: Auricles normal inspection, hearing grossly normal, nares patent, oropharynx clear without exudates. Moist mucosa NECK: Normal ROM, no lymphadenopathy LUNGS: No increased work of breathing, symmetrical chest rise HEART: Regular rate ABDOMEN: Soft, nondistended, nontender. No guarding, no rebound. No masses. No CVAT MUSCULOSKELETAL: FROM NEUROLOGICAL: no focal sensorimotor deficits SKIN: Warm, Dry, normal turgor, no rashes or lesions noted Past History - Medical History Allergies/Adverse Reactions: Allergies Allergy/AdvReac Type Severity Reaction Status Date / Time Fish Containing Products Allergy Mild Swelling Verified 03/28/20 19:32 No Known Drug Allergies Allergy Verified 03/28/20 19:32 Home Medications: Ambulatory Orders NK [No Known Home Medication] 03/05/20 Anemia: No Asthma: No Cancer: Yes (mesothelioma lung cancer) Cardiac Disorders: No CVA: No COPD: No CHF: No DVT: No Dementia: No Diabetes: No Dialysis: No GI Disorders: No Disorders: No HTN: Yes (non compliant with meds.) Hypercholesterolemia: Yes Kidney Stones: No Liver Disease: Yes (ETOH abuse) Psychiatric Problems: Yes (ETOH abuse) Seizures: No Thyroid Disease: No Lung CA: Yes (Mesothelioma) - Surgical History Abdominal Surgery: No Appendectomy: No Cardiac Surgery: No Cholecystectomy: No Lung Surgery: No Neurologic Surgery: No Orthopedic Surgery: No - Reproductive History Testicular Surgery: No - Immunization History Td Vaccination: Yes TDAP Vaccination: Yes Immunization Up to Date: Yes - Psycho-Social/Smoking History Smoking Status: No Smoking History: Former smoker Have you smoked in the past 12 months: No Number of Cigarettes Smoked Daily: 0 If you are a former smoker, when did you quit?: 0 Cigars Per Day: 0 Information on smoking cessation initiated: No 'Breaking Loose' booklet given: 09/22/17 - Substance Abuse Hx (Audit-C & DAST Scrn) How often the patient has a drink containing alcohol: 4 0r more times/wk Number of drinks the patient has on a typical day: 10 or more How often the patient has six or more drinks on one occasion: Daily or almost daily Score: In Men: 4 or > Positive; In Women: 3 or > Positive: 12 Screen Result (Pos requires Nsg. Audit-10AR): Positive In the last yr the pt used illegal drug/Rx for NonMed reason: No Score: Yes response is considered Positive: 0 Screen Result (Positive result requires Nsg. DAST-10): Negative *Physical Exam - Vital Signs Last Vital Signs Temp Pulse Resp BP Pulse Ox 99.0 F 100 H 18 105/62 98 03/28/20 19:27 03/28/20 19:27 03/28/20 19:27 03/28/20 19:27 03/28/20 19:27 Medical Decision Making - Medical Decision Making 03/29/20 01:29 65 y/o M with hx of COVID-19, mesothelioma with long history of EtOH abuse, chronic back pain, and multiple ER visits and admission secondary to EtOH abuse is presenting with back pain and left sided chest pain. PE unremarkable -labs reviewed from yesterday; will replete potassium and magnesium -ekg: nsr, prolonged qt 482, other intervals wnl, no emir/d -patient refusing kdur -will dc; no other concerns at this time Discharge - Discharge Information Problems reviewed: Yes Clinical Impression/Diagnosis: Low back pain, Hypomagnesemia, Hypokalemia Condition: Fair Disposition: HOME - Follow up/Referral Referrals: [facility] [place] [facility] [Provider Group] - Patient Discharge Instructions Patient Printed Discharge Instructions: DI for Low Back Pain Additional Instructions: Additional Instructions: Please return to the emergency department with any new or worsening symptoms or concerns. Please follow up with your primary care physician within 72 hours. - Post Discharge Activity
[2020-03-28] MEDS ORDERED: LIDOCAINE 5% TOPICAL PATCH TP ONE (23:21)
--- NOTE | 2020-03-28 23:45 | PDOC ---
Attending Attestation - Resident Resident Name: Binaca Frausto - ED Attending Attestation I have performed the following: I have examined & evaluated the patient, The case was reviewed & discussed with the resident, I agree w/resident's findings & plan, Exceptions are as noted - HPI HPI: 03/28/20 23:43 65yo male well known to the ER presents tonight for eval of L sided cp and chronic back pain. Pt is a chronic alcoholic, but states he has not had a drink for 3 days. Pt appears disheveled. - Physicial Exam PE: 03/28/20 23:44 Gen: awake, sober, disheveled heart: +s1s2 reg lungs: cta b/l abd: soft, obese nt/nd ext: 2+ pitting edema able to ambulate - Medical Decision Making 03/28/20 23:44 a/p: 65yo male with lbp -pt is a chronic alcoholic but has been sober x 3 days -labs from last night removed -hx of hypokalemia and hypomag -will obtain ekg -lidoderm for lbp -will monitor and reassess 03/29/20 00:15 will replace mag and potassium ekg nonacute 03/29/20 01:27 pt refusing potassium stable for dc Heart Score/ECG Review - ECG Intrepretation Comment:: 03/28/20 23:45 sinus at 95, nl axis, nl interval, qtc 482, no acute st/t wave findings Discharge - Discharge Information Problems reviewed: Yes Clinical Impression/Diagnosis: Low back pain, Hypomagnesemia, Hypokalemia Condition: Stable Disposition: HOME - Admission No - Follow up/Referral Referrals: [facility] [place] [facility] [Provider Group] - Patient Discharge Instructions Patient Printed Discharge Instructions: DI for Low Back Pain - Post Discharge Activity
[2020-03-29] MEDS ORDERED: POTASSIUM CHLORIDE TABS 20 MEQ TABLET.ER (FP) PO ONE ×2 (00:14→01:11)
[2020-03-29] MEDS ORDERED: MAGNESIUM OXIDE 400 MG TABLET (FP) PO ONE (00:14)
[2020-03-29] MEDS ORDERED: LIDOCAINE 5% TOPICAL PATCH ONE (01:11)
[2020-03-29] MEDS ORDERED: MAGNESIUM OXIDE 400 MG TABLET (FP) ONE (01:11)
[2020-03-29 03:21] VITALS: BP 148/96; PULSE 96
--- NOTE | 2020-03-29 09:47 | EKG ---
Test Reason : Blood Pressure : / mmHG Vent. Rate : 095 BPM Atrial Rate : 095 BPM P-R Int : 178 ms QRS Dur : 094 ms QT Int : 384 ms P-R-T Axes : 032 -23 050 degrees QTc Int : 482 ms NORMAL SINUS RHYTHM PROLONGED QT ABNORMAL ECG WHEN COMPARED WITH ECG OF 13-FEB-2020 13:54, NO SIGNIFICANT CHANGE WAS FOUND Confirmed by ANGELINA HYLTON MD ([id number]) on 03/29/2020 9:47:05 AM Referred By: Confirmed By:ANGELINA HYLTON MD
== END 2020-03-29 06:00 | disposition home or self-care (01) ==
LOC: JER 19:24
DX: M54.5 Low back pain (principal)
CPT/HCPCS: 93005; 93010; 99285-25

== ENCOUNTER 2020-03-30 18:59 | Emergency (ER) | payer OTHER ==
[2020-03-30 19:11] VITALS: TEMP 98.1; BMI 28.7
--- OUTSIDE RECORDS SUMMARY | 2020-03-30 19:36 | XMS ---
:1955 Author Organization [facility]IO Care Team Providers Name Role Phone [facility], STJRH9 Unavailable Unavailable ED STAFF PHYSICIAN, JOSE Unavailable Unavailable ED STAFF PHYSICIAN Unavailable Unavailable LANOIX, YAN Unavailable Unavailable [place] SCHNEIDER Unavailable Unavailable ED STAFF PHYSICIAN, LEONEL Unavailable Unavailable ED STAFF PHYSICIAN, AGUILAR Unavailable Unavailable ED STAFF PHYSICIAN Unavailable Unavailable ED STAFF PHYSICIAN Unavailable Unavailable PAULINO Ellis Unavailable Unavailable ED STAFF PHYSICIAN, FRANCISCA Unavailable Unavailable KELLI TUYET TUYET Unavailable Unavailable PALLI VINO K Unavailable Unavailable [facility], MHAW9 Unavailable Unavailable ED STAFF PHYSICIAN, STAFF Unavailable Unavailable CLEMENTE RAMOS AKINO Unavailable Unavailable ZACK COLEY Unavailable Unavailable ED STAFF PHYSICIAN, LITZY Unavailable [...] is protected by Article 27-F of the [facility] Public Health law. If you continue you may haveaccess to information: Regarding HIV / AIDS; Provided by facilities licensed or operated by the [facility] Office of Mental Health; or Provided by the [facility] Office for People With Developmental Disabilities. If such information is present, then the following [facility] mandated warning applies: This information has been [...] law may result in a fine or retirement sentence or both. A general authorization for the release of medical or other information is NOT sufficient authorization for further disclosure. Encounters Encounter Providers Location Date Indications Data Source(s ) Emergency Attender: JOSE ED H 03/29/2020 [facility]: EDT - STAFF ED STAFF 03/30/2020 PHYSICIANAdmitter: 11:11:00 AM JOSE ED STAFF EDT PHYSICIANReferrer: ZUNASSIGNED Patient discharged. Emergency Attender: ED STAFF H 03/26/2020 07:51:00 PM [facility] PHYSICIANAttender: STAFF ED EDT - 03/26/2020 [facility] STAFF PHYSICIANAdmitter: ED 11:23:00 PM EDT STAFF PHYSICIANReferrer: ZUNASSIGNED Patient discharged. Emergency Attender: ED STAFF H 03/24/2020 05:26:00 PM [facility] PHYSICIANAttender: STAFF ED EDT - 03/24/2020 [facility] STAFF PHYSICIANAdmitter: ED 09:14:00 PM EDT STAFF PHYSICIANReferrer: STAFF ED STAFF PHYSICIAN Patient discharged. Emergency Attender: ED STAFF H 03/23/2020 09:54:00 PM [facility] PHYSICIANAttender: STAFF ED EDT - 03/24/2020 [facility] STAFF PHYSICIANAdmitter: ED 05:54:00 AM EDT STAFF PHYSICIANReferrer: ZUNASSIGNED Patient discharged. Emergency Attender: JOSE ED STAFF H 03/23/2020 05:47:00 PM [facility] PHYSICIANAttender: STAFF ED EDT - 03/23/2020 [facility] STAFF PHYSICIANAdmitter: 09:35:00 PM EDT [place] ED STAFF PHYSICIANReferrer: ZUNASSIGNED Patient discharged. Emergency Attender: ED STAFF H 03/22/2020 06:46:00 PM [facility] PHYSICIANAttender: STAFF ED EDT - 03/23/2020 [facility] STAFF PHYSICIANAdmitter: ED 06:04:00 AM EDT STAFF PHYSICIANReferrer: ZUNASSIGNED Patient discharged. Outpatient Attender: [id number] [facility] 03/19/2020 06:09:28 PM [facility] ([facility] EDT Collaborative) Patient admitted. Inpatient Attender: ZACK H-[id number] 03/16/2020 05:57:00 [facility] HENRIKHAttender: STAFF ED PM EDT - 03/20/2020 [facility] STAFF PHYSICIANAdmitter: 01:00:00 PM EDT ZACK Rodaserrer: ZACK COLEY Patient discharged. Emergency Attender: ED STAFF H 03/13/2020 10:53:00 PM [facility] PHYSICIANAttender: STAFF ED EDT - 03/14/2020 [facility] STAFF PHYSICIANAdmitter: ED 09:59:00 AM EDT STAFF PHYSICIANReferrer: ZUNASSIGNED Patient discharged. Emergency Attender: ED STAFF H 03/12/2020 11:27:00 PM [facility] PHYSICIANAttender: STAFF ED EDT - 03/13/2020 [facility] STAFF PHYSICIANAdmitter: ED 09:26:00 AM EDT STAFF PHYSICIANReferrer: ZUNASSIGNED Patient discharged. Emergency Attender: ED STAFF H 03/11/2020 07:35:00 PM [facility] PHYSICIANAttender: STAFF ED EDT - 03/12/2020 [facility] STAFF PHYSICIANAdmitter: ED 06:22:00 AM EDT STAFF PHYSICIANReferrer: STAFF ED STAFF PHYSICIAN Patient discharged. Emergency Attender: ED STAFF H 03/07/2020 12:09:00 AM [facility] PHYSICIANAttender: STAFF ED EDT - 03/07/2020 [facility] STAFF PHYSICIANAdmitter: ED 05:31:00 AM EDT STAFF PHYSICIANReferrer: ZUNASSIGNED Patient discharged. Emergency Attender: LITZY ED STAFF H-ER 03/05/2020 07:16:00 [facility] PHYSICIANAttender: STAFF ED PM EDT - 03/05/2020 [facility] STAFF PHYSICIANAdmitter: 08:52:00 PM EDT [facility] ED STAFF PHYSICIANReferrer: ZUNASSIGNED Patient discharged. Emergency Attender: ED STAFF H 03/03/2020 07:52:00 PM [facility] PHYSICIANAttender: STAFF ED EDT - 03/04/2020 [facility] STAFF PHYSICIANAdmitter: ED 06:50:00 AM EDT STAFF PHYSICIANReferrer: STAFF ED STAFF PHYSICIAN Patient discharged. Emergency Attender: JOSE ED STAFF 03/01/2020 12:31:00 PM [facility] PHYSICIANAttender: STAFF ED EDT - 03/01/2020 [facility] STAFF PHYSICIANAdmitter: 11:42:00 PM EDT [place] ED STAFF PHYSICIANReferrer: ZUNASSIGNED Patient discharged. Emergency Attender: ED STAFF 02/29/2020 12:29:00 PM [facility] PHYSICIANAttender: STAFF ED EDT - 02/29/2020 [facility] STAFF PHYSICIANAdmitter: ED 06:19:00 PM EDT STAFF PHYSICIANReferrer: ZUNASSIGNED Patient discharged. Emergency Attender: LITZY ED STAFF 02/28/2020 08:42:00 PM [facility] PHYSICIANAttender: STAFF ED EDT - 02/29/2020 [facility] STAFF PHYSICIANAdmitter: LITZY 05:27:00 AM EDT ED STAFF PHYSICIANReferrer: ZUNASSIGNED Patient discharged. Emergency Attender: JOSE ED STAFF H 02/28/2020 11:14:00 AM [facility] PHYSICIANAttender: STAFF ED EDT - 02/28/2020 [facility] STAFF PHYSICIANAdmitter: 07:32:00 PM EDT [place] ED STAFF PHYSICIANReferrer: ZUNASSIGNED Patient discharged. Emergency Attender: ED STAFF H 02/27/2020 08:25:00 PM [facility] PHYSICIANAttender: STAFF ED EDT - 02/28/2020 [facility] STAFF PHYSICIANAdmitter: ED 07:04:00 AM EDT STAFF PHYSICIANReferrer: ZUNASSIGNED Patient discharged. Inpatient Attender: LEWIS DUVAL-1D 02/16/2020 01:37:00 [facility] KEANUYan RESENDEZ EDT - [address] [place] [address] 10:27:00 PM EDT Patient discharged. Outpatient ST 02/16/2020 10:53:00 AM EDT - [address] [place] [address] 01:59:00 PM EDT Patient discharged. Emergency Attender: ED STAFF H 02/09/2020 09:43:00 PM [facility] PHYSICIANAttender: STAFF ED EDT - 02/10/2020 [facility] STAFF PHYSICIANAdmitter: ED 06:48:00 AM EDT STAFF PHYSICIANReferrer: ZUNASSIGNED Patient discharged. Emergency Attender: STAFF ED STAFF H 02/09/2020 02:45:00 AM [facility] Medical PHYSICIAN EDT - 02/09/2020 06:55:00 Center AM EDT Patient discharged. Emergency Attender: LITZY ED STAFF H 02/04/2020 11:24:00 AM [facility] PHYSICIANAttender: STAFF ED EDT - 02/04/2020 [facility] STAFF PHYSICIANAdmitter: LITZY 03:35:00 PM EDT ED STAFF PHYSICIAN Patient discharged. Emergency Attender: MARCIAL Sage 01/25/2020 06:06:00 PM [facility] KAttender: STAFF ED STAFF EDT - 01/26/2020 [facility] PHYSICIANAdmitter: MARCIAL SMITH 06:12:00 AM EDT K Patient discharged. Emergency Attender: ED STAFF H 01/24/2020 08:18:00 PM [facility] PHYSICIANAttender: STAFF ED EDT - 01/25/2020 [facility] STAFF PHYSICIANAdmitter: ED 06:04:00 AM EDT STAFF PHYSICIAN Patient discharged. Emergency Attender: JOSE ED STAFF H 01/24/2020 01:40:00 PM [facility] PHYSICIANAttender: STAFF ED EDT - 01/24/2020 [facility] STAFF PHYSICIANAdmitter: 05:56:00 PM EDT JOSE ED STAFF PHYSICIAN Patient discharged. Emergency Attender: STAFF ED STAFF H 01/20/2020 03:33:00 PM [facility] Medical PHYSICIAN EDT - 01/20/2020 06:41:00 [place] PM EDT Patient discharged. Emergency Attender: JOSE ED STAFF 01/19/2020 11:13:00 AM [facility] PHYSICIANAttender: STAFF ED EDT - 01/19/2020 [facility] STAFF PHYSICIANAdmitter: 03:48:00 PM EDT [place] ED STAFF PHYSICIAN Patient discharged. Emergency Attender: ED STAFF H 01/18/2020 09:44:00 PM [facility] PHYSICIANAttender: STAFF ED EDT - 01/19/2020 [facility] STAFF PHYSICIANAdmitter: ED 06:28:00 AM EDT STAFF PHYSICIAN Patient discharged. [facility] [id number] 01/14/2020 01:13:05 PM [facility] ([facility] EDT Collaborative) Patient admitted. Emergency Attender: JOSE ED STAFF 01/06/2020 01:03:00 PM [facility] PHYSICIANAttender: STAFF ED EDT - 01/06/2020 [facility] STAFF PHYSICIANAdmitter: 09:00:00 PM EDT [place] ED STAFF PHYSICIAN Patient discharged. Emergency Attender: STAFF ED STAFF 01/05/2020 08:46:00 PM [facility] Medical PHYSICIAN EDT - 01/06/2020 09:01:00 [facility] AM EDT Patient discharged. Emergency Attender: JOSE ED STAFF 01/05/2020 02:24:00 PM [facility] PHYSICIANAttender: STAFF ED EDT - 01/05/2020 [facility] STAFF PHYSICIANAdmitter: 05:02:00 PM EDT [place] ED STAFF PHYSICIAN Patient discharged. Emergency Attender: STAFF ED STAFF 01/03/2020 08:50:00 PM [facility] PHYSICIAN EDT - 01/04/2020 06:32:00 [facility] AM EDT Patient discharged. Emergency Attender: ED STAFF H 12/30/2019 08:35:00 PM [facility] PHYSICIANAttender: STAFF ED EDT - 12/31/2019 [facility] STAFF PHYSICIANAdmitter: ED 06:54:00 AM EDT STAFF PHYSICIAN Patient discharged. Emergency Attender: ED STAFF H 12/30/2019 04:36:00 PM [facility] PHYSICIANAttender: STAFF ED EDT - 12/31/2019 [facility] STAFF PHYSICIANAdmitter: ED 06:55:00 AM EDT STAFF PHYSICIAN Patient discharged. Emergency Attender: LITZY ED STAFF H 12/29/2019 03:42:00 PM [facility] PHYSICIANAttender: STAFF ED EDT - 12/29/2019 [facility] STAFF PHYSICIANAdmitter: LITZY 08:14:00 PM EDT ED STAFF PHYSICIAN Patient discharged. Emergency Attender: STAFF ED STAFF H 12/28/2019 10:09:00 PM [facility] Medical PHYSICIAN EDT - 12/29/2019 06:04:00 Center AM EDT Patient discharged. Emergency Attender: ED STAFF H 12/28/2019 01:13:00 AM [facility] PHYSICIANAttender: STAFF ED EDT - 12/28/2019 [facility] STAFF PHYSICIANAdmitter: ED 09:44:00 AM EDT STAFF PHYSICIAN Patient discharged. Emergency Attender: LITZY ED STAFF 12/27/2019 06:29:00 PM [facility] PHYSICIANAttender: ED STAFF EDT - 12/27/2019 [facility] PHYSICIANAttender: STAFF ED 10:06:00 PM EDT STAFF PHYSICIANAdmitter: [facility] ED STAFF PHYSICIAN Patient discharged. Emergency Attender: JOSE ED STAFF 12/27/2019 12:06:00 PM [facility] PHYSICIANAttender: LITZY ED EDT - 12/27/2019 [facility] STAFF PHYSICIANAttender: STAFF 10:05:00 PM EDT ED STAFF PHYSICIANAdmitter: JOSE ED STAFF PHYSICIAN Patient discharged. Emergency Attender: ED STAFF H-ER 12/24/2019 11:12:00 [facility] PHYSICIANAttender: STAFF ED PM EDT - 12/25/2019 [facility] STAFF PHYSICIANAdmitter: ED 05:53:00 AM EDT STAFF PHYSICIAN Patient discharged. Emergency Attender: LITZY ED STAFF 12/22/2019 04:41:00 PM [facility] PHYSICIANAttender: STAFF ED EDT - 12/23/2019 [facility] STAFF PHYSICIANAdmitter: LITZY 06:19:00 AM EDT ED STAFF PHYSICIAN Patient discharged. Emergency Attender: LITZY ED STAFF H 12/20/2019 08:52:00 PM [facility] PHYSICIANAttender: STAFF ED EDT - 12/20/2019 [facility] STAFF PHYSICIANAdmitter: LITZY 11:29:00 PM EDT ED STAFF PHYSICIAN Patient discharged. Emergency Attender: ED STAFF H 12/18/2019 05:15:00 AM [facility] PHYSICIANAttender: STAFF ED EDT - 12/18/2019 [facility] STAFF PHYSICIANAdmitter: ED 06:04:00 AM EDT STAFF PHYSICIAN Patient discharged. Emergency Attender: LITZY ED STAFF H 12/17/2019 04:35:00 PM [facility] PHYSICIANAttender: STAFF ED EDT - 12/18/2019 [facility] STAFF PHYSICIANAdmitter: LITZY 03:16:00 AM EDT ED STAFF PHYSICIANReferrer: STAFF ED STAFF PHYSICIAN Patient discharged. Emergency Attender: ED STAFF H 12/16/2019 07:15:00 PM [facility] PHYSICIANAttender: STAFF ED EDT - 12/17/2019 [facility] STAFF PHYSICIANAdmitter: ED 06:39:00 AM EDT STAFF PHYSICIANReferrer: STAFF ED STAFF PHYSICIAN Patient discharged. Emergency Attender: MARCIAL Sage 12/16/2019 02:10:00 PM [facility] KAttender: STAFF ED STAFF EDT - 12/16/2019 [facility] PHYSICIANAdmitter: MARCIAL SMITH 05:38:00 PM EDT K Patient discharged. Emergency Attender: JOSE ED STAFF 12/14/2019 02:52:00 PM [facility] PHYSICIANAttender: ED STAFF EDT - 12/14/2019 [facility] PHYSICIANAttender: STAFF ED 09:24:00 PM EDT STAFF PHYSICIANAdmitter: JOSE ED STAFF PHYSICIAN Patient discharged. Emergency Attender: FRANCISCA ED STAFF 12/10/2019 06:39:00 PM [facility] PHYSICIANAttender: ED STAFF EDT - 12/10/2019 [facility] PHYSICIANAttender: STAFF ED 09:42:00 PM EDT STAFF PHYSICIANAdmitter: FRANCISCA ED STAFF PHYSICIAN Patient discharged. Emergency Attender: ED STAFF 12/09/2019 02:37:00 PM [facility] PHYSICIANAttender: STAFF ED EDT - 12/09/2019 [facility] STAFF PHYSICIANAdmitter: ED 04:39:00 PM EDT STAFF PHYSICIAN Patient discharged. Emergency Attender: ED STAFF H 12/08/2019 10:33:00 PM [facility] PHYSICIANAttender: STAFF ED EDT - 12/09/2019 [facility] STAFF PHYSICIANAdmitter: ED 06:03:00 AM EDT STAFF PHYSICIAN Patient discharged. Emergency Attender: LITZY ED STAFF H 12/08/2019 01:04:00 PM [facility] PHYSICIANAttender: STAFF ED EDT - 12/08/2019 [facility] STAFF PHYSICIANAdmitter: LITZY 04:42:00 PM EDT ED STAFF PHYSICIAN Patient discharged. Emergency Attender: STAFF ED STAFF H 12/08/2019 01:26:00 AM [facility] PHYSICIAN EDT - 12/08/2019 03:22:00 [facility] AM EDT Patient discharged. Emergency Attender: MARCIAL Sage 12/07/2019 02:19:00 PM [facility] Deborah: STAFF ED STAFF EDT - 12/07/2019 [facility] PHYSICIANAdmitter: MARCIAL GARCIAO 06:57:00 PM EDT K Patient discharged. Emergency Attender: LITZY ED STAFF 12/06/2019 06:10:00 PM [facility] PHYSICIANAttender: STAFF ED EDT - 12/07/2019 [facility] STAFF PHYSICIANAdmitter: LITZY 12:43:00 AM EDT ED STAFF PHYSICIAN Patient discharged. Emergency Attender: ED STAFF 12/04/2019 08:59:00 PM [facility] PHYSICIANAttender: STAFF ED EDT - 12/05/2019 [facility] STAFF PHYSICIANAdmitter: ED 05:48:00 AM EDT STAFF PHYSICIANReferrer: STAFF ED STAFF PHYSICIAN Patient discharged. Emergency Attender: ED STAFF 12/03/2019 08:01:00 PM [facility] PHYSICIANAttender: STAFF ED EDT - 12/03/2019 [facility] STAFF PHYSICIANAdmitter: ED 10:34:00 PM EDT STAFF PHYSICIAN Patient discharged. Emergency Attender: ED STAFF 12/03/2019 01:49:00 PM [facility] PHYSICIANAttender: STAFF ED EDT - 12/03/2019 [facility] STAFF PHYSICIANAdmitter: ED 05:15:00 PM EDT STAFF PHYSICIANReferrer: STAFF ED STAFF PHYSICIAN Patient discharged. Emergency Attender: STAFF ED STAFF 12/02/2019 08:09:00 PM [facility] PHYSICIAN EDT - 12/03/2019 07:06:00 [facility] AM EDT Patient discharged. Emergency Attender: MARCIAL Sage 11/30/2019 04:27:00 PM [facility] Deborah: STAFF ED STAFF EDT - 11/30/2019 [facility] PHYSICIANAdmitter: MARCIAL GARCIAO 11:51:00 PM EDT K Patient discharged. Emergency Attender: STAFF ED STAFF H 11/30/2019 03:04:00 AM [facility] PHYSICIAN EDT - 11/30/2019 07:04:00 [place] AM EDT Patient discharged. Emergency Attender: LITZY ED STAFF 11/29/2019 04:39:00 PM [facility] PHYSICIANAttender: STAFF ED EDT - 11/29/2019 [facility] STAFF PHYSICIANAdmitter: LITZY 10:06:00 PM EDT ED STAFF PHYSICIAN Patient discharged. Emergency Attender: ED STAFF 11/25/2019 09:53:00 PM [facility] PHYSICIANAttender: STAFF ED EDT - 11/26/2019 [facility] STAFF PHYSICIANAdmitter: ED 06:08:00 AM EDT STAFF PHYSICIAN Patient discharged. Emergency Attender: MARCIAL Saeg 11/25/2019 12:05:00 PM [facility] KAtthierno: Josue Tanja EDT - 11/25/2019 [facility] MDAttender: STAFF ED STAFF 03:49:00 PM EDT PHYSICIANAdmitter: MARCIAL Ellis Patient discharged. Emergency Attender: STAFF ED STAFF 11/24/2019 10:37:00 PM [facility] PHYSICIAN EDT - 11/25/2019 01:28:00 [facility] AM EDT Patient discharged. Emergency Attender: JOSE ED STAFF 11/24/2019 02:04:00 PM [facility] PHYSICIANAttender: LITZY ED EDT - 11/24/2019 [facility] STAFF PHYSICIANAttender: STAFF 05:13:00 PM EDT ED STAFF PHYSICIANAdmitter: JOSE ED STAFF PHYSICIAN Patient discharged. Emergency Attender: MARCIAL Sage 11/23/2019 05:20:00 PM [facility] KAtthierno: STAFF ED STAFF EDT - 11/24/2019 [facility] PHYSICIANAdmitter: MARCIAL SMITH 05:19:00 AM EDT K Patient discharged. Emergency Attender: LITZY ED STAFF 11/22/2019 08:30:00 PM [facility] PHYSICIANAttender: STAFF ED EDT - 11/23/2019 [facility] STAFF PHYSICIANAdmitter: LITZY 06:02:00 AM EDT ED STAFF PHYSICIAN Patient discharged. Emergency Attender: LITZY ED STAFF 11/22/2019 01:37:00 PM [facility] PHYSICIANAttender: STAFF ED EDT - 11/22/2019 [facility] STAFF PHYSICIANAdmitter: LITZY 05:57:00 PM EDT ED STAFF PHYSICIAN Patient discharged. Emergency Attender: LITZY ED STAFF H 11/20/2019 03:54:00 PM [facility] PHYSICIANAttender: STAFF ED EDT - 11/20/2019 [facility] STAFF PHYSICIANAdmitter: LITZY 07:33:00 PM EDT ED STAFF PHYSICIAN Patient discharged. Emergency Attender: ED STAFF H 11/18/2019 01:25:00 PM [facility] PHYSICIANAttender: STAFF ED EDT - 11/19/2019 [facility] STAFF PHYSICIANAdmitter: ED 01:40:00 AM EDT STAFF PHYSICIAN Patient discharged. Emergency Attender: STAFF ED STAFF H 11/16/2019 08:42:00 PM [facility] PHYSICIAN EDT - 11/17/2019 05:38:00 [facility] AM EDT Patient discharged. Emergency Attender: ED STAFF 11/16/2019 01:46:00 PM [facility] PHYSICIANAttender: PALLI VINO EDT - 11/16/2019 [facility] KAttender: STAFF ED STAFF 05:41:00 PM EDT PHYSICIANAdmitter: ED STAFF PHYSICIAN Patient discharged. Emergency Attender: JOSE ED STAFF 11/10/2019 04:25:00 PM [facility] PHYSICIANAttender: STAFF ED EDT - 11/10/2019 [facility] STAFF PHYSICIANAdmitter: 08:35:00 PM EDT [place] ED STAFF PHYSICIAN Patient discharged. Emergency Attender: JOSE ED STAFF 11/08/2019 02:38:00 PM [facility] PHYSICIANAttender: STAFF ED EDT - 11/08/2019 [facility] STAFF PHYSICIANAdmitter: 10:15:00 PM EDT [place] ED STAFF PHYSICIAN Patient discharged. Emergency Attender: ED STAFF 11/07/2019 10:18:00 PM [facility] PHYSICIANAttender: STAFF ED EDT - 11/14/2019 [facility] STAFF PHYSICIANAdmitter: ED 12:48:00 AM EDT STAFF PHYSICIANReferrer: STAFF ED STAFF PHYSICIAN Patient discharged. Emergency Attender: ED STAFF 11/05/2019 01:32:00 PM [facility] PHYSICIANAttender: STAFF ED EDT - 11/05/2019 [facility] STAFF PHYSICIANAdmitter: ED 07:57:00 PM EDT STAFF PHYSICIAN Patient discharged. Emergency Attender: STAFF ED STAFF H 11/03/2019 09:29:00 PM [facility] PHYSICIAN EDT - 11/03/2019 11:21:00 [place] PM EDT Patient discharged. Emergency Attender: MARCIAL Sage 11/02/2019 07:07:00 PM [place] Deborah: STAFF ED STAFF EDT - 11/03/2019 [facility] PHYSICIANAdmitter: MARCIAL SMITH 12:39:00 AM EDT K Patient discharged. Emergency Attender: JOSE ED STAFF H 11/01/2019 02:09:00 PM [facility] PHYSICIANAttender: STAFF ED EDT - 11/01/2019 [facility] STAFF PHYSICIANAdmitter: 09:18:00 PM EDT [place] ED STAFF PHYSICIAN Patient discharged. Emergency Attender: MARCIAL Sage 10/31/2019 06:02:00 PM [facility] Deborah: ED STAFF EDT - 10/31/2019 [facility] PHYSICIANAttender: STAFF ED 10:38:00 PM EDT STAFF PHYSICIANAdmitter: MARCIAL Ellis Patient discharged. Emergency Attender: ED STAFF H 10/30/2019 02:58:00 PM [facility] PHYSICIANAttender: STAFF ED EDT - 10/31/2019 [facility] STAFF PHYSICIANAdmitter: ED 02:24:00 AM EDT STAFF PHYSICIAN Patient discharged. Emergency Attender: LITZY ED STAFF 10/28/2019 08:51:00 PM [facility] PHYSICIANAttender: STAFF ED EDT - 10/29/2019 [facility] STAFF PHYSICIANAdmitter: LITZY 03:06:00 AM EDT ED STAFF PHYSICIAN Patient discharged. Emergency Attender: LITZY ED STAFF 10/27/2019 06:36:00 PM [facility] PHYSICIANAttender: STAFF ED EDT - 10/27/2019 [facility] STAFF PHYSICIANAdmitter: LITZY 10:23:00 PM EDT ED STAFF PHYSICIAN Patient discharged. Emergency Attender: ED STAFF 10/22/2019 06:02:00 PM [facility] PHYSICIANAttender: PAULINO EDT - 10/22/2019 [facility] PENELOPE Cabrera: STAFF ED 10:48:00 PM EDT STAFF PHYSICIANAdmitter: ED STAFF PHYSICIANReferrer: STAFF ED STAFF PHYSICIAN Patient discharged. Emergency Attender: ED STAFF H 10/22/2019 01:07:00 AM [facility] PHYSICIANAttender: STAFF ED EDT - 10/22/2019 [facility] STAFF PHYSICIANAdmitter: ED 06:20:00 AM EDT STAFF PHYSICIAN Patient discharged. Emergency Attender: JOSE ED STAFF H 10/21/2019 03:39:00 PM [facility] PHYSICIANAttender: STAFF ED EDT - 10/22/2019 [facility] STAFF PHYSICIANAdmitter: 12:14:00 AM EDT [place] ED STAFF PHYSICIAN Patient discharged. Emergency Attender: STAFF ED STAFF H 10/21/2019 12:18:00 AM [facility] PHYSICIAN EDT - 10/21/2019 07:03:00 [place] AM EDT Patient discharged. Emergency Attender: MARCIAL Sage 10/19/2019 08:03:00 PM [facility] KAttender: STAFF ED STAFF EDT - 10/20/2019 [facility] PHYSICIANAdmitter: MARCIAL SMITH 06:09:00 AM EDT K Patient discharged. Emergency Attender: ED STAFF H 10/18/2019 06:11:00 AM [facility] PHYSICIANAttender: STAFF ED EDT - 10/18/2019 [facility] STAFF PHYSICIANAdmitter: ED 09:49:00 PM EDT STAFF PHYSICIAN Patient discharged. Emergency Attender: MARCIAL Sage 10/17/2019 08:24:00 PM [facility] KAttender: ED STAFF EDT - 10/17/2019 [facility] PHYSICIANAttender: STAFF ED 11:42:00 PM EDT STAFF PHYSICIANAdmitter: MARCIAL SMITH K Patient discharged. Emergency Attender: JOSE ED STAFF 10/15/2019 01:27:00 PM [facility] PHYSICIANAttender: STAFF ED EDT - 10/15/2019 [facility] STAFF PHYSICIANAdmitter: 03:49:00 PM EDT [place] ED STAFF PHYSICIAN Patient discharged. Emergency Attender: LITZY ED STAFF H 10/13/2019 07:22:00 PM [facility] PHYSICIANAttender: STAFF ED EDT - 10/13/2019 [facility] STAFF PHYSICIANAdmitter: LITZY 10:35:00 PM EDT ED STAFF PHYSICIAN Patient discharged. Emergency Attender: JOSE ED STAFF H 10/13/2019 07:53:00 AM [facility] PHYSICIANAttender: STAFF ED EDT - 10/13/2019 [facility] STAFF PHYSICIANAdmitter: 06:44:00 PM EDT [place] ED STAFF PHYSICIAN Patient discharged. Emergency Attender: STAFF ED STAFF H 10/12/2019 12:49:00 AM [facility] PHYSICIAN EDT - 10/12/2019 02:10:00 [place] AM EDT Patient discharged. Emergency Attender: LITZY ED STAFF H 10/11/2019 02:37:00 PM [facility] PHYSICIANAttender: STAFF ED EDT - 10/11/2019 [facility] STAFF PHYSICIANAdmitter: LITZY 08:39:00 PM EDT ED STAFF PHYSICIAN Patient discharged. Outpatient Attender: [id number] [facility] 10/10/2019 07:26:38 [facility] Patient admitted. Outpatient Attender: [email or web address] [facility] 10/10/2019 07:26:35 AM [facility] Patient admitted. Emergency Attender: JOSE ED STAFF H 10/06/2019 09:24:00 AM [facility] PHYSICIANAttender: STAFF ED EDT - 10/06/2019 [facility] STAFF PHYSICIANAdmitter: 11:20:00 AM EDT JOSE ED STAFF PHYSICIAN Patient discharged. Emergency Attender: STAFF ED STAFF H 10/05/2019 08:44:00 PM [facility] PHYSICIAN EDT - 10/06/2019 12:39:00 [facility] AM EDT Patient discharged. Inpatient Attender: TUYET PEREIRA H-EDIP 09/17/2019 11:20:00 [facility] TRISTANAttender: STAFF ED PM EDT - 09/19/2019 [facility] STAFF PHYSICIANAdmitter: 07:49:00 AM EDT TUYET LUTZTANReferrer: TUYET BENZ Patient discharged. Emergency Attender: Josue Sage 09/17/2019 05:08: 00 PM [facility] MDAttender: STAFF ED STAFF EDT - 09/18/2019 [facility] PHYSICIANAdmitter: Josue 04:33:00 AM EDT [facility] KAPLANeferrer: STAFF ED STAFF PHYSICIAN Patient discharged. Emergency Attender: STAFF ED STAFF H 09/14/2019 08:44:00 PM [facility] PHYSICIAN EDT - 09/15/2019 09:09:00 Center AM EDT Patient discharged. Emergency Attender: LITZY ED STAFF H 09/13/2019 07:30:00 PM [facility] PHYSICIANAttender: STAFF ED EDT - 09/14/2019 [facility] STAFF PHYSICIANAdmitter: LITZY 08:43:00 AM EDT ED STAFF PHYSICIAN Patient discharged. Emergency Attender: JOSE ED STAFF H 09/13/2019 08:56:00 AM [facility] PHYSICIANAttender: STAFF ED EDT - 09/13/2019 [facility] STAFF PHYSICIANAdmitter: 01:13:00 PM EDT [place] ED STAFF PHYSICIAN Patient discharged. Emergency Attender: STAFF ED STAFF 09/12/2019 08:31:00 PM [facility] PHYSICIAN EDT - 09/13/2019 07:32:00 Center AM EDT Patient discharged. Emergency Attender: ED STAFF 09/11/2019 08:42:00 PM [facility] PHYSICIANAttender: STAFF ED EDT - 09/12/2019 [facility] STAFF PHYSICIANAdmitter: ED 06:36:00 PM EDT STAFF PHYSICIANReferrer: STAFF ED STAFF PHYSICIAN Patient discharged. Emergency Attender: LITZY ED STAFF 09/11/2019 04:08:00 PM [facility] PHYSICIANAttender: STAFF ED EDT - 09/11/2019 [facility] STAFF PHYSICIANAdmitter: LITZY 06:54:00 PM EDT ED STAFF PHYSICIAN Patient discharged. Emergency Attender: ED STAFF 09/10/2019 04:50:00 PM [facility] PHYSICIANAttender: STAFF ED EDT - 09/11/2019 [facility] STAFF PHYSICIANAdmitter: ED 08:33:00 PM EDT STAFF PHYSICIANReferrer: STAFF ED STAFF PHYSICIAN Patient discharged. Emergency Attender: ED STAFF 09/08/2019 08:13:00 PM [facility] PHYSICIANAttender: STAFF ED EDT - 09/09/2019 [facility] STAFF PHYSICIANAdmitter: ED 08:40:00 AM EDT STAFF PHYSICIAN Patient discharged. Emergency Attender: STAFF ED STAFF 09/07/2019 10:06:00 PM [facility] PHYSICIAN EDT - 09/08/2019 08:44:00 [place] AM EDT Patient discharged. Emergency Attender: JOSE ED STAFF 09/05/2019 07:50:00 AM [facility] PHYSICIANAttender: ED STAFF EDT - 09/07/2019 [facility] PHYSICIANAttender: STAFF ED 06:44:00 AM EDT STAFF PHYSICIANAdmitter: JOSE ED STAFF PHYSICIAN Patient discharged. Emergency Attender: STAFF ED STAFF 09/04/2019 10:01:00 PM [facility] PHYSICIANReferrer: STAFF ED EDT - 09/05/2019 [facility] STAFF PHYSICIAN 08:15:00 AM EDT Patient discharged. Emergency Attender: LITZY ED STAFF H 09/04/2019 02:54:00 PM [facility] PHYSICIANAttender: STAFF ED EDT - 09/04/2019 [facility] STAFF PHYSICIANAdmitter: LITZY 08:59:00 PM EDT ED STAFF PHYSICIANReferrer: STAFF ED STAFF PHYSICIAN Patient discharged. Emergency Attender: STAFF ED STAFF 09/03/2019 08:39:00 PM [facility] PHYSICIANReferrer: STAFF ED EDT - 09/04/2019 [facility] STAFF PHYSICIAN 06:55:00 AM EDT Patient discharged. Emergency Attender: LITZY ED STAFF 09/02/2019 04:49:00 PM [facility] PHYSICIANAttender: ED STAFF EDT - 09/03/2019 [facility] PHYSICIANAttender: STAFF ED 12:12:00 AM EDT STAFF PHYSICIANAdmitter: [facility] ED STAFF PHYSICIAN Patient discharged. Outpatient Attender: [id number] 09/02/2019 07:16:17 AM [facility] ([facility] EDT Collabor[facility]) Patient admitted. Emergency Attender: ED STAFF 09/01/2019 10:38:00 PM [facility] PHYSICIANAttender: STAFF ED EDT - 09/01/2019 [facility] STAFF PHYSICIANAdmitter: ED 11:35:00 PM EDT STAFF PHYSICIAN Patient discharged. Emergency Attender: JOSE ED STAFF 09/01/2019 12:48:00 PM [facility] PHYSICIANAttender: LITZY ED EDT - 09/01/2019 [facility] STAFF PHYSICIANAttender: STAFF 09:37:00 PM EDT ED STAFF PHYSICIANAdmitter: [place] ED STAFF PHYSICIAN Patient discharged. Emergency Attender: ED STAFF 08/31/2019 07:31:00 PM [facility] PHYSICIANAttender: STAFF ED EDT - 09/01/2019 [facility] STAFF PHYSICIANAdmitter: ED 04:06:00 AM EDT STAFF PHYSICIAN Patient discharged. Emergency Attender: ED STAFF 08/29/2019 08:10:00 PM [facility] PHYSICIANAttender: STAFF ED EDT - 08/30/2019 [facility] STAFF PHYSICIANAdmitter: ED 08:39:00 AM EDT STAFF PHYSICIAN Patient discharged. Emergency Attender: ED STAFF H 08/28/2019 08:21:00 PM [facility] PHYSICIANAttender: STAFF ED EDT - 08/29/2019 [facility] STAFF PHYSICIANAdmitter: ED 08:53:00 AM EDT STAFF PHYSICIANReferrer: STAFF ED STAFF PHYSICIAN Patient discharged. Emergency Attender: ED STAFF H 08/27/2019 08:45:00 PM [facility] PHYSICIANAttender: STAFF ED EDT - 08/28/2019 [facility] STAFF PHYSICIANAdmitter: ED 01:42:00 AM EDT STAFF PHYSICIANReferrer: STAFF ED STAFF PHYSICIAN Patient discharged. Emergency Attender: MARCIAL SMITH H 08/27/2019 05:26:00 AM [facility] KAttender: ED STAFF EDT - 08/27/2019 [facility] PHYSICIANAttender: STAFF ED 04:41:00 PM EDT STAFF PHYSICIANAdmitter: PALLI JOSEO K Patient discharged. Emergency Attender: FRANCISCA ED STAFF H 08/25/2019 04:54:00 PM [facility] PHYSICIANAttender: LITZY ED EDT - 08/25/2019 [facility] STAFF PHYSICIANAttender: STAFF 07:49:00 PM EDT ED STAFF PHYSICIANAdmitter: [facility] ED STAFF PHYSICIAN Patient discharged. Emergency Attender: ELICIA ED STAFF 08/24/2019 06:38:00 PM [facility] PHYSICIANAttender: STAFF ED EDT - 08/25/2019 [facility] STAFF PHYSICIANAdmitter: 05:59:00 AM EDT [facility] ED STAFF PHYSICIAN Patient discharged. Emergency Attender: FRANCISCA ED STAFF 08/23/2019 06:12:00 PM [facility] PHYSICIANAttender: STAFF ED EDT - 08/24/2019 [facility] STAFF PHYSICIAN 04:50:00 AM EDT Patient discharged. Emergency Attender: STAFF ED STAFF 08/22/2019 08:59:00 PM [facility] PHYSICIAN EDT - 08/23/2019 08:48:00 Center AM EDT Patient discharged. Emergency Attender: STAFF ED STAFF H 08/21/2019 09:12:00 PM [facility] PHYSICIANReferrer: STAFF ED EDT - 08/22/2019 [facility] STAFF PHYSICIAN 06:01:00 AM EDT Patient discharged. Emergency Attender: ED STAFF H 08/20/2019 03:19:00 PM [facility] PHYSICIANAttender: STAFF ED EST - 08/20/2019 [facility] STAFF PHYSICIANAdmitter: ED 11:42:00 PM EST STAFF PHYSICIAN Patient discharged. Emergency Attender: ED STAFF H 08/19/2019 07:15:00 PM [facility] PHYSICIANAttender: STAFF ED EST - 08/20/2019 [facility] STAFF PHYSICIANAdmitter: ED 03:04:00 AM EST STAFF PHYSICIAN Patient discharged. Emergency Attender: ED STAFF H 08/19/2019 03:56:00 PM [facility] PHYSICIANAttender: STAFF ED EST - 08/19/2019 [facility] STAFF PHYSICIANAdmitter: ED 06:55:00 PM EST STAFF PHYSICIAN Patient discharged. Emergency Attender: LITZY ED STAFF H 08/18/2019 03:54:00 PM [facility] PHYSICIANAttender: STAFF ED EST - 08/18/2019 [facility] STAFF PHYSICIANAdmitter: LITZY 10:23:00 PM EST ED STAFF PHYSICIAN Patient discharged. Emergency Attender: ED STAFF H 08/17/2019 02:27:00 PM [facility] PHYSICIANAttender: STAFF ED EST - 08/18/2019 [facility] STAFF PHYSICIANAdmitter: ED 08:39:00 AM EST STAFF PHYSICIAN Patient discharged. Emergency Attender: STAFF ED STAFF H 08/17/2019 02:43:00 AM [facility] PHYSICIAN EST - 08/17/2019 09:44:00 Center AM EST Patient discharged. Emergency Attender: EVA 08/16/2019 03:33:00 [facility] RICHARDAttender: EMERGENCY PM EST Health Care SERVICE, XAdmitter: [facility]ARDO[facility]th[facility] Emergency Attender: LITZY ED STAFF 08/12/2019 05:29:00 PM [facility] PHYSICIANAttender: FRANCISCA ED EST - 08/13/2019 [facility] STAFF PHYSICIANAttender: STAFF 05:43:00 AM EST ED STAFF PHYSICIANAdmitter: LITZY ED STAFF PHYSICIAN Patient discharged. Emergency Attender: LITZY ED STAFF 08/11/2019 05:01:00 PM [facility] PHYSICIANAttender: STAFF ED EST - 08/12/2019 [facility] STAFF PHYSICIANAdmitter: LITZY 12:41:00 AM EST ED STAFF PHYSICIAN Patient discharged. Emergency Attender: ED STAFF H 08/10/2019 10:37:00 PM [facility] PHYSICIANAttender: STAFF ED EST - 08/11/2019 [facility] STAFF PHYSICIANAdmitter: ED 01:01:00 AM EST STAFF PHYSICIAN Patient discharged. Emergency Attender: AGUILAR ED STAFF H 08/10/2019 04:09:00 PM [facility] PHYSICIANAttender: STAFF ED EST - 08/10/2019 [facility] STAFF PHYSICIANAdmitter: AGUILAR 11:02:00 PM EST ED STAFF PHYSICIAN Patient discharged. Emergency Attender: ED STAFF 08/09/2019 07:25:00 PM [facility] PHYSICIANAttender: STAFF ED [facility] - 08/10/2019 [facility] STAFF PHYSICIANAdmitter: ED 09:58:00 AM EST STAFF PHYSICIAN Patient discharged. Emergency Attender: LEONEL ED STAFF 08/08/2019 04:28:00 PM [facility] PHYSICIANAttender: STAFF ED [facility] - 08/09/2019 [facility] STAFF PHYSICIANAdmitter: LEONEL 10:32:00 AM EST ED STAFF PHYSICIAN Patient discharged. Emergency Attender: ED STAFF H 08/06/2019 03:52:00 PM [facility] PHYSICIANAttender: ED STAFF [facility] - 08/07/2019 [facility] PHYSICIANAttender: STAFF ED 12:38:00 AM EST STAFF PHYSICIANAdmitter: ED STAFF PHYSICIAN Patient discharged. Emergency Attender: LEONEL ED STAFF 08/01/2019 06:41:00 PM [facility] PHYSICIANAttender: STAFF ED [facility] - 08/02/2019 [facility] STAFF PHYSICIANAdmitter: LEONEL 08:35:00 AM EST ED STAFF PHYSICIAN Patient discharged. Emergency Attender: STAFF ED STAFF 07/31/2019 11:25:00 PM [facility] PHYSICIAN [facility] - 08/01/2019 08:56:00 Center AM EST Patient discharged. Emergency Attender: LITZY ED STAFF 07/31/2019 05:39:00 PM [facility] PHYSICIANAttender: STAFF ED [facility] - 07/31/2019 [facility] STAFF PHYSICIANAdmitter: LITZY 07:38:00 PM EST ED STAFF PHYSICIANReferrer: STAFF ED STAFF PHYSICIAN Patient discharged. Emergency Attender: STAFF ED STAFF 07/30/2019 07:01:00 PM [facility] PHYSICIANReferrer: STAFF ED [facility] - 07/31/2019 [facility] STAFF PHYSICIAN 04:29:00 PM EST Patient discharged. Emergency Attender: STAFF ED STAFF 07/29/2019 09:45:00 PM [facility] PHYSICIAN [facility] - 07/30/2019 07:10:00 Center AM EST Patient discharged. Emergency Attender: LITZY ED STAFF 07/28/2019 02:39:00 PM [facility] PHYSICIANAttender: ED STAFF [facility] - 07/29/2019 [facility] PHYSICIANAttender: STAFF ED 01:25:00 AM EST STAFF PHYSICIANAdmitter: [facility] ED STAFF PHYSICIAN Patient discharged. Emergency Attender: JOSE ED STAFF 07/28/2019 03:16:00 AM [facility] PHYSICIANAttender: STAFF ED EST - 07/28/2019 [facility] STAFF PHYSICIANAdmitter: 10:10:00 AM EST [place] ED STAFF PHYSICIAN Patient discharged. Emergency Attender: ED STAFF H 07/27/2019 03:24:00 PM [facility] PHYSICIANAttender: STAFF ED EST - 07/27/2019 [facility] STAFF PHYSICIANAdmitter: ED 10:57:00 PM EST STAFF PHYSICIAN Patient discharged. Emergency Attender: JOSE ED STAFF 07/26/2019 02:36:00 PM [facility] PHYSICIANAttender: STAFF ED EST - 07/26/2019 [facility] STAFF PHYSICIANAdmitter: 06:36:00 PM EST [place] ED STAFF PHYSICIAN Patient discharged. Emergency Attender: ED STAFF 07/22/2019 12:21:00 AM [facility] PHYSICIANAttender: STAFF ED EST - 07/22/2019 [facility] STAFF PHYSICIANAdmitter: ED 01:50:00 AM EST STAFF PHYSICIAN Patient discharged. Emergency Attender: FRANCISCA ED STAFF 07/17/2019 07:28:00 PM [facility] PHYSICIANAttender: STAFF ED EST - 07/17/2019 [facility] STAFF PHYSICIANAdmitter: 10:56:00 PM EST [facility] ED STAFF PHYSICIANReferrer: STAFF ED STAFF PHYSICIAN Patient discharged. Emergency Attender: FRANCISCA ED STAFF 07/16/2019 03:07:00 PM [facility] PHYSICIANAttender: STAFF ED EST - 07/17/2019 [facility] STAFF PHYSICIANAdmitter: 03:19:00 AM EST [facility] ED STAFF PHYSICIAN Patient discharged. Emergency Attender: ED STAFF H-ER 07/15/2019 01:02:00 [facility] PHYSICIANAttender: STAFF ED AM EST - 07/15/2019 [facility] STAFF PHYSICIANAdmitter: ED 03:10:00 AM EST STAFF PHYSICIAN Patient discharged. Emergency Attender: JOSE ED STAFF 07/14/2019 07:29:00 AM [facility] PHYSICIANAttender: STAFF ED EST - 07/14/2019 [facility] STAFF PHYSICIANAdmitter: 12:19:00 PM EST [place] ED STAFF PHYSICIAN Patient discharged. Emergency Attender: ED STAFF H 07/13/2019 05:30:00 PM [facility] PHYSICIANAttender: STAFF ED [facility] - 07/14/2019 [facility] STAFF PHYSICIANAdmitter: ED 05:30:00 AM EST STAFF PHYSICIAN Patient discharged. Emergency Attender: STAFF ED STAFF 07/13/2019 03:03:00 AM [facility] PHYSICIAN [facility] - 07/13/2019 10:05:00 [place] AM EST Patient discharged. Emergency Attender: STAFF ED STAFF 07/12/2019 09:37:00 PM [facility] PHYSICIAN [facility] - 07/13/2019 12:34:00 [place] AM EST Patient discharged. Emergency Attender: JOSE ED STAFF 07/12/2019 01:34:00 PM [facility] PHYSICIANAttender: STAFF ED [facility] - 07/12/2019 [facility] STAFF PHYSICIANAdmitter: 11:37:00 PM EST [place] ED STAFF PHYSICIAN Patient discharged. Emergency Attender: STAFF ED STAFF 07/09/2019 10:13:00 PM [facility] PHYSICIANReferrer: STAFF ED [facility] 07/09/2019 [facility] STAFF PHYSICIAN 11:20:00 PM EST Patient discharged. Emergency Attender: ED STAFF 07/09/2019 11:25:00 AM [facility] PHYSICIANAttender: STAFF ED [facility] - 07/09/2019 [facility] STAFF PHYSICIANAdmitter: ED 03:37:00 PM EST STAFF PHYSICIAN Patient discharged. Emergency Attender: STAFF ED STAFF 07/08/2019 08:14:00 PM [facility] PHYSICIAN [facility] - 07/09/2019 07:23:00 [place] AM EST Patient discharged. Emergency Attender: LITZY ED STAFF 07/07/2019 07:49:00 PM [facility] PHYSICIANAttender: STAFF ED [facility] 07/07/2019 [facility] STAFF PHYSICIANAdmitter: LITZY 09:07:00 PM EST ED STAFF PHYSICIAN Patient discharged. Emergency Attender: JOSE ED STAFF 07/07/2019 12:23:00 PM [facility] PHYSICIANAttender: STAFF ED [facility] - 07/07/2019 [facility] STAFF PHYSICIANAdmitter: 04:56:00 PM EST JOSE ED STAFF PHYSICIAN Patient discharged. Emergency Attender: Josue Mendez 07/06/2019 06:30: 00 PM [facility] MDAttender: STAFF ED STAFF [facility] 07/07/2019 [facility] PHYSICIANAdmitter: Josue 02:40:00 AM EST [facility] [place] Patient discharged. Emergency Attender: STAFF ED STAFF 07/05/2019 10:18:00 PM [facility] PHYSICIAN EST - 07/06/2019 07:08:00 Center AM EST Patient discharged. Emergency Attender: ED STAFF 07/04/2019 05:56:00 PM [facility] PHYSICIANAttender: ED STAFF EST - 07/05/2019 [facility] PHYSICIANAttender: STAFF ED 09:10:00 AM EST STAFF PHYSICIANAdmitter: ED STAFF PHYSICIANReferrer: STAFF ED STAFF PHYSICIAN Patient discharged. Emergency Attender: STAFF ED STAFF 07/03/2019 10:40:00 PM [facility] PHYSICIANReferrer: STAFF ED EST - 07/04/2019 [facility] STAFF PHYSICIAN 06:45:00 AM EST Patient discharged. Emergency Attender: ED STAFF 07/02/2019 06:17:00 PM [facility] PHYSICIANAttender: STAFF ED EST - 07/02/2019 [facility] STAFF PHYSICIANAdmitter: ED 08:42:00 PM EST STAFF PHYSICIANReferrer: STAFF ED STAFF PHYSICIAN Patient discharged. Emergency Attender: ED STAFF 07/01/2019 11:08:00 PM [facility] PHYSICIANAttender: STAFF ED EST - 07/02/2019 [facility] STAFF PHYSICIANAdmitter: ED 04:14:00 AM EST STAFF PHYSICIAN Patient discharged. Emergency Attender: ED STAFF 07/01/2019 07:08:00 PM [facility] PHYSICIANAttender: STAFF ED [facility] - 07/01/2019 [facility] STAFF PHYSICIANAdmitter: ED 09:50:00 PM EST STAFF PHYSICIAN Patient discharged. Emergency Attender: STAFF ED STAFF 06/29/2019 09:17:00 PM [facility] PHYSICIAN [facility] - 06/30/2019 04:12:00 [facility] AM EST Patient discharged. Emergency Attender: STAFF ED STAFF 06/29/2019 03:02:00 AM [facility] PHYSICIAN [facility] - 06/29/2019 09:25:00 [facility] AM EST Patient discharged. Emergency Attender: STAFF ED STAFF 06/28/2019 09:08:00 PM [facility] PHYSICIAN [facility] - 06/28/2019 11:20:00 Center PM EST Patient discharged. Emergency Attender: LITZY ED STAFF 06/28/2019 12:59:00 PM [facility] PHYSICIANAttender: STAFF ED EST - 06/28/2019 [facility] STAFF PHYSICIANAdmitter: LITZY 06:29:00 PM EST ED STAFF PHYSICIAN Patient discharged. Emergency Attender: ED STAFF H 06/27/2019 11:57:00 PM [facility] PHYSICIANAttender: STAFF ED [facility] - 06/28/2019 [facility] STAFF PHYSICIANAdmitter: ED 02:12:00 AM EST STAFF PHYSICIAN Patient discharged. Emergency Attender: JOSE ED STAFF 06/27/2019 12:51:00 PM [facility] PHYSICIANAttender: STAFF ED [facility] - 06/27/2019 [facility] STAFF PHYSICIANAdmitter: 09:36:00 PM EST [place] ED STAFF PHYSICIAN Patient discharged. Emergency Attender: ED STAFF 06/27/2019 03:59:00 AM [facility] PHYSICIANAttender: STAFF ED EST - 06/27/2019 [facility] STAFF PHYSICIANAdmitter: ED 06:26:00 AM EST STAFF PHYSICIAN Patient discharged. Emergency Attender: STAFF ED STAFF 06/24/2019 10:59:00 PM [facility] PHYSICIAN [facility] - 06/25/2019 07:44:00 Center AM EST Patient discharged. Emergency Attender: PAULINO Sage 06/24/2019 01:51:00 PM [facility] KAttender: STAFF ED STAFF [facility] - 06/24/2019 [facility] PHYSICIANAdmitter: PAULINO 10:37:00 PM EST [place] Patient discharged. Emergency Attender: LITZY ED STAFF 06/23/2019 04:58:00 PM [facility] PHYSICIANAttender: STAFF ED [facility] - 06/24/2019 [facility] STAFF PHYSICIANAdmitter: LITZY 02:50:00 AM EST ED STAFF PHYSICIAN Patient discharged. Emergency Attender: LITZY ED STAFF 06/16/2019 06:18:00 PM [facility] PHYSICIANAttender: STAFF ED [facility] - 06/16/2019 [facility] STAFF PHYSICIANAdmitter: LITZY 09:48:00 PM EST ED STAFF PHYSICIAN Patient discharged. Emergency Attender: STAFF ED STAFF 06/16/2019 05:45:00 AM [facility] PHYSICIAN [facility] - 06/16/2019 05:52:00 Center AM EST Patient discharged. Emergency Attender: JOSE ED STAFF 06/16/2019 02:25:00 AM [facility] PHYSICIANAttender: STAFF ED EST - 06/16/2019 [facility] STAFF PHYSICIAN 09:02:00 AM EST Patient discharged. Emergency Attender: ED STAFF 06/15/2019 01:01:00 PM [facility] PHYSICIANAttender: STAFF ED EST - 06/15/2019 [facility] STAFF PHYSICIANAdmitter: ED 07:10:00 PM EST STAFF PHYSICIAN Patient discharged. Emergency Attender: LITZY ED STAFF 06/14/2019 08:05:00 PM [facility] PHYSICIANAttender: ED STAFF EST - 06/15/2019 [facility] PHYSICIANAttender: STAFF ED 06:52:00 AM EST STAFF PHYSICIANAdmitter: [facility] ED STAFF PHYSICIAN Patient discharged. Emergency Attender: ED STAFF H 06/13/2019 06:15:00 PM [facility] PHYSICIANAttender: FRANCISCA ED EST - 06/14/2019 [facility] STAFF PHYSICIANAttender: STAFF 05:26:00 AM EST ED STAFF PHYSICIANAdmitter: ED STAFF PHYSICIAN Patient discharged. Emergency Attender: FRANCISCA ED STAFF 06/12/2019 08:47:00 PM [facility] PHYSICIANAttender: STAFF ED EST - 06/12/2019 [facility] STAFF PHYSICIANAdmitter: 09:46:00 PM EST [facility] ED STAFF PHYSICIANReferrer: STAFF ED STAFF PHYSICIAN Patient discharged. Emergency Attender: FRANCISCA ED STAFF 06/12/2019 05:09:00 PM [facility] PHYSICIANAttender: [facility] ED EST - 06/12/2019 [facility] STAFF PHYSICIANAttender: STAFF 06:37:00 PM EST ED STAFF PHYSICIANAdmitter: [facility] ED STAFF PHYSICIANReferrer: STAFF ED STAFF PHYSICIAN Patient discharged. Emergency Attender: ED STAFF 06/10/2019 05:55:00 PM [facility] PHYSICIANAttender: STAFF ED EST - 06/10/2019 [facility] STAFF PHYSICIAN 10:34:00 PM EST Patient discharged. Emergency Attender: LITZY ED STAFF 06/09/2019 08:54:00 PM [facility] PHYSICIANAttender: ED STAFF EST - 06/09/2019 [facility] PHYSICIANAttender: STAFF ED 10:57:00 PM EST STAFF PHYSICIANAdmitter: [facility] ED STAFF PHYSICIAN Patient discharged. Emergency Attender: LITZY ED STAFF 06/09/2019 06:18:00 PM [facility] PHYSICIANAttender: STAFF ED EST - 06/09/2019 [facility] STAFF PHYSICIANAdmitter: LITZY 07:46:00 PM EST ED STAFF PHYSICIAN Patient discharged. Emergency Attender: LITZY ED STAFF H 06/09/2019 02:23:00 PM [facility] PHYSICIANAttender: STAFF ED EST - 06/09/2019 [facility] STAFF PHYSICIANAdmitter: LITZY 06:43:00 PM EST ED STAFF PHYSICIAN Patient discharged. Emergency Attender: ED STAFF H 06/08/2019 08:07:00 PM [facility] [facility] LITZY ED EST - 06/09/2019 [facility] STAFF PHYSICIANAttender: STAFF 08:46:00 AM EST ED STAFF PHYSICIANAdmitter: ED STAFF PHYSICIANReferrer: STAFF ED STAFF PHYSICIAN Patient discharged. Emergency Attender: LITZY ED STAFF H 06/07/2019 04:26:00 PM [facility] PHYSICIANAttender: STAFF ED EST - 06/07/2019 [facility] STAFF PHYSICIANAdmitter: LITZY 08:39:00 PM EST ED STAFF PHYSICIAN Patient discharged. Emergency Attender: LEONEL ED STAFF H 06/06/2019 06:19:00 PM [facility] PHYSICIANAttender: STAFF ED EST - 06/06/2019 [facility] STAFF PHYSICIANAdmitter: LEONEL 11:22:00 PM EST ED STAFF PHYSICIAN Patient discharged. Emergency Attender: JOSE ED STAFF H 06/06/2019 11:50:00 AM [facility] PHYSICIANAttender: STAFF ED EST - 06/06/2019 [facility] STAFF PHYSICIANAdmitter: 06:05:00 PM EST [place] ED STAFF PHYSICIAN Patient discharged. Emergency Attender: STAFF ED STAFF H 06/05/2019 05:53:00 PM [facility] PHYSICIANReferrer: STAFF ED EST - 06/06/2019 [facility] STAFF PHYSICIAN 11:24:00 AM EST Patient discharged. Emergency Attender: ED STAFF H 06/03/2019 02:42:00 PM [facility] PHYSICIANAttender: STAFF ED EST - 06/03/2019 [facility] STAFF PHYSICIANAdmitter: ED 07:12:00 PM EST STAFF PHYSICIAN Patient discharged. Emergency Attender: STAFF ED STAFF H 06/02/2019 03:47:00 PM [facility] PHYSICIAN EST - 06/03/2019 06:24:00 Center AM EST Patient discharged. Emergency Attender: STAFF ED STAFF H-ER 06/01/2019 07:03:00 [facility] PHYSICIANAdmitter: STAFF ED PM EST - 06/02/2019 [facility] STAFF PHYSICIAN 09:42:00 AM EST Patient discharged. Emergency Attender: LEONEL ED STAFF H 06/01/2019 01:42:00 PM [facility] PHYSICIANAttender: STAFF ED EST - 06/01/2019 [facility] STAFF PHYSICIANAdmitter: LEONEL 01:45:00 PM EST ED STAFF PHYSICIAN Patient discharged. Emergency Attender: AGUILAR ED STAFF H 06/01/2019 01:37:00 PM [facility] PHYSICIANAttender: LEONEL ED EST - 06/01/2019 [facility] STAFF PHYSICIANAttender: STAFF 04:28:00 PM EST ED STAFF PHYSICIANAdmitter: AGUILAR ED STAFF PHYSICIAN Patient discharged. Emergency Attender: PAULINO Sage 05/31/2019 02:29:00 PM [facility] KAttender: STAFF ED STAFF EST - 05/31/2019 [facility] PHYSICIANAdmitter: PAULINO 08:32:00 PM EST PENELOPE K Patient discharged. Emergency Attender: ED STAFF H 05/29/2019 02:39:00 PM [facility] PHYSICIANAttender: STAFF ED EST - 05/30/2019 [facility] STAFF PHYSICIANAdmitter: ED 07:02:00 AM EST STAFF PHYSICIAN Patient discharged. Emergency Attender: ED STAFF 05/28/2019 09:23:00 PM [facility] PHYSICIANAttender: STAFF ED EST - 05/29/2019 [facility] STAFF PHYSICIANAdmitter: ED 07:28:00 AM EST STAFF PHYSICIANReferrer: STAFF ED STAFF PHYSICIAN Patient discharged. Emergency Attender: LEONEL ED STAFF 05/28/2019 01:26:00 PM [facility] PHYSICIANAttender: STAFF ED EST - 05/29/2019 [facility] STAFF PHYSICIANAdmitter: LEONEL 01:06:00 AM EST ED STAFF PHYSICIAN Patient discharged. Emergency Attender: LEONEL ED STAFF 05/24/2019 06:37:00 PM [facility] PHYSICIANAttender: STAFF ED EST - 05/25/2019 [facility] STAFF PHYSICIAN 10:33:00 AM EST Patient discharged. Emergency Attender: JOSE ED STAFF H 05/24/2019 12:04:00 PM [facility] PHYSICIANAttender: STAFF ED EST - 05/24/2019 [facility] STAFF PHYSICIANAdmitter: 09:12:00 PM EST JOSE ED STAFF PHYSICIAN Patient discharged. Emergency Attender: FRANCISCA ED STAFF H 05/22/2019 10:10:00 PM [facility] PHYSICIANAttender: STAFF ED EST - 05/23/2019 [facility] STAFF PHYSICIANAdmitter: 09:05:00 AM EST [place] ED STAFF PHYSICIAN Patient discharged. Emergency Attender: LITZY ED STAFF H 05/22/2019 02:13:00 PM [facility] PHYSICIANAttender: FRANCISCA ED EST - 05/23/2019 [facility] STAFF PHYSICIANAttender: STAFF 12:13:00 AM EST ED STAFF PHYSICIANAdmitter: [facility] ED STAFF PHYSICIAN Patient discharged. Emergency Attender: CHANHUSEYIN ED STAFF H 05/21/2019 02:44:00 PM [facility] PHYSICIANAttender: LEONEL ED EST - 05/22/2019 [facility] STAFF PHYSICIANAttender: STAFF 12:01:00 AM EST ED STAFF PHYSICIANAdmitter: [facility] ED STAFF PHYSICIAN Patient discharged. Emergency Attender: ED STAFF H 05/20/2019 06:51:00 PM [facility] PHYSICIANAttender: STAFF ED EST - 05/21/2019 [facility] STAFF PHYSICIANAdmitter: ED 11:22:00 AM EST STAFF PHYSICIAN Patient discharged. Emergency Attender: ED STAFF H 05/19/2019 09:29:00 PM [facility] PHYSICIANAttender: STAFF ED EST - 05/20/2019 [facility] STAFF PHYSICIANAdmitter: ED 06:30:00 AM EST STAFF PHYSICIAN Patient discharged. Emergency Attender: AGUILAR ED STAFF H 05/18/2019 01:40:00 PM [facility] PHYSICIANAttender: STAFF ED EST - 05/18/2019 [facility] STAFF PHYSICIANAdmitter: AGUILAR 10:18:00 PM EST ED STAFF PHYSICIAN Patient discharged. Emergency Attender: STAFF ED STAFF H 05/17/2019 11:12:00 PM [facility] PHYSICIAN EST - 05/18/2019 08:10:00 Center AM EST Patient discharged. Emergency Attender: JOSE ED STAFF H 05/17/2019 12:42:00 PM [facility] PHYSICIANAttender: LITZY ED EST - 05/17/2019 [facility] STAFF PHYSICIANAttender: STAFF 10:01:00 PM [facility] ED STAFF PHYSICIANAdmitter: JOSE ED STAFF PHYSICIAN Patient discharged. Emergency Attender: STAFF ED STAFF H 05/16/2019 08:04:00 PM [facility] PHYSICIANReferrer: STAFF ED EST - 05/17/2019 [facility] STAFF PHYSICIAN 08:38:00 AM EST Patient discharged. Emergency Attender: ED STAFF H 05/15/2019 04:42:00 PM [facility] PHYSICIANAttender: STAFF ED EST - 05/16/2019 [facility] STAFF PHYSICIANAdmitter: ED 08:39:00 AM EST STAFF PHYSICIANReferrer: STAFF ED STAFF PHYSICIAN Patient discharged. Emergency Attender: FRANCISCA ED STAFF H 05/14/2019 11:53:00 PM [facility] PHYSICIANAttender: STAFF ED EST - 05/15/2019 [facility] STAFF PHYSICIANAdmitter: 06:49:00 AM EST [facility] ED STAFF PHYSICIAN Patient discharged. Emergency Attender: FRANCISCA ED STAFF H 05/14/2019 03:32:00 PM [facility] PHYSICIANAttender: STAFF ED EST - 05/14/2019 [facility] STAFF PHYSICIANAdmitter: 11:00:00 PM EST [facility] ED STAFF PHYSICIAN Patient discharged. Inpatient Attender: RACHEL CORNEJO H-HAL5 05/07/2019 08:12:00 [facility] AKINOAttender: STAFF ED STAFF AM EST - 05/14/20 19 [facility] PHYSICIANAdmitter: AKINO 10:16:00 AM EST CLEMENTE OLSENOReferrer: RACHEL RAMOS Patient discharged. Emergency Attender: ED STAFF H 05/06/2019 05:37:00 PM [facility] PHYSICIANAttender: STAFF ED EST - 05/07/2019 [facility] STAFF PHYSICIANAdmitter: ED 04:16:00 AM EST STAFF PHYSICIAN Patient discharged. Emergency Attender: JOSE ED STAFF H 05/05/2019 04:09:00 PM [facility] PHYSICIANAttender: ED STAFF EST - 05/06/2019 [facility] PHYSICIANAttender: STAFF ED 09:14:00 AM EST STAFF PHYSICIANAdmitter: [place] ED STAFF PHYSICIAN Patient discharged. Emergency Attender: STAFF ED STAFF H 05/04/2019 08:43:00 PM [facility] PHYSICIAN EST - 05/05/2019 06:47:00 [place] AM EST Patient discharged. Emergency Attender: STAFF ED STAFF H 05/02/2019 03:18:00 PM [facility]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 03/20/2020 05:45:00 AM EDT [facility] 0-0400 Name Value Range Interpretation Code Description Data Pebbles rce(s) Supporting Document(s ) UNK > 60 <content [facility] styleCode="Bold"> Medical Cent er EGFR </content>144 GFR<content styleCode="Italic s"> (> 60 GFR)</content> ID Date Data Source Coagulation 03/20/2020 05:45:00 AM [facility] ical Center Rout.[id number] EDT Name Value Range Interpretation Description Data [...] cs"> (25.1-36.5 SEC)</content> ID Date Data Source MROUTINECCDA.[id number] 03/20/2020 05:45:00 AM EDT [facility] -0400 Name Value Range Interpretation Description [...] (2.5-4.5 MG/DL)</conten t> ID Date Data Source [facility].[id number] 03/20/2020 05:45:00 AM EDT [facility] Name Value Range Interpretation Description [...] Data Source Liver 03/19/2020 05:30:00 AM EDT [facility] Profile.[id number] Name Value Range Interpretation Description Data Sup [...] s"> (0.2-1.3 MG/DL)</content> ID Date Data Source HematologyRou.[id number] 03/19/2020 05:30:00 AM EDT [facility] 0400 Name Value Range Interpretation Description [...] (< 1 %)</content> ID Date Data Source GFR(Creatinine).[id number] 03/19/2020 05:30:00 AM EDT [facility] 0-0400 Name Value Range Interpretation Code Description Data Pebbles rce(s) Supporting Document(s ) UNK > 60 <content [facility] styleCode="Bold"> Medical Cent er EGFR </content>177 GFR<content styleCode="Italic s"> (> 60 GFR)</content> ID Date Data Source Coagulation 03/19/2020 05:30:00 AM [facility] ical Center Rout.[id number] EDT Name Value Range Interpretation Description Data Sup porting Code Source(s) Document(s ) UNK 9.0-13.0 Above high normal <content styleCode="Bold" [facility] >[facility] </content>13.1 Center SEC [...] cs"> (25.1-36.5 SEC)</content> ID Date Data Source CHMROUTINECCDA.[id number] 03/19/2020 05:30:00 AM [facility] Name Value Range Interpretation [...] (6.3-8.2 G/DL)</content > ID Date Data Source [facility].[id number] 03/19/2020 05:30:00 AM EDT [facility] Name [...] Data Source Liver 03/18/2020 06:51:00 AM EDT [facility] Profile.[id number] Name Value Range Interpretation Description Data Sup [...] s"> (3.5-5.0 G/DL)</content> ID Date Data Source HematologyRou.[id number] 03/18/2020 06:51:00 AM EDT [facility] 0400 Name Value Range Interpretation Description [...] 1.0-4.8 Below low normal <content Saint styleCode="Bold Sihaan ">Lymphocyte Medical Count Center </content>0.92 KCUMM L<content [...] (< 1 %)</content> ID Date Data Source GFR(Creatinine).[id number] 03/18/2020 06:51:00 AM EDT [facility] 0-0400 Name Value Range Interpretation Code Description Data Pebbles rce(s) Supporting Document(s ) UNK > 60 <content [facility] styleCode="Bold"> Medical Cent er EGFR </content>229 GFR<content styleCode="Italic s"> (> 60 GFR)</content> ID Date Data Source Coagulation 03/18/2020 06:51:00 AM [facility] ical Center Rout.[id number] EDT Name Value Range Interpretation Description Data [...] cs"> (25.1-36.5 SEC)</content> ID Date Data Source CHMROUTINECCDA.[id number] 03/18/2020 06:51:00 AM EDT [facility] -0400 Name Value Range Interpretation Description [...] (6.3-8.2 G/DL)</content > ID Date Data Source BloodBank.[id number] 03/18/2020 06:51:00 AM EDT [facility] Name Value Range Interpretation Code Description Data Pebbles rce(s) Supporting Document(s ) UNK <content [facility] styleCode="Bold" Medical Cente r >Blood Type </content>GROUP O (Reference Range: not available)
UNK NEGATIVE <content [facility] styleCode="Bold" Medical Cente r >Antibody Screen </content>NEGATI VE <content styleCode="Itali cs"> (NEGATIVE )</content> UNK <content [facility] styleCode="Bold" Medical Cente r >RH Type </content>POSITI VE (Reference Range: not available)
ID Date Data Source [facility].[id number] 03/18/2020 06:51:00 AM EDT [facility] Name Value Range Interpretation [...] Date Data Source Coagulation 03/17/2020 08:48:00 PM [facility] ical Center Rout.[id number] EDT Name Value Range Interpretation Description Data Sup porting Code Source(s) Document(s ) aPTT in 25.1-36. Above high normal <content [facility] Platelet poor 5 styleCode="Bold" [facility] plasma by >Partial Medical Coagulation Thromboplastin Center assay Time </content>90.0 SEC H<content styleCode="Itali cs"> (25.1-36.5 SEC)</content> ID Date Data Source Stools.[id number] 03/17/2020 03:45:00 PM EDT [facility] Name Value Range Interpretation Code Description Data Pebbles rce(s) Supporting Document(s ) UNK NEGATIVE <content [facility] styleCode="Bold" Medical Cente r >Guaiac, Occult Blood </content>NEGATI VE <content styleCode="Itali cs"> (NEGATIVE )</content> ID Date Data Source Liver 03/17/2020 10:30:00 AM EDT [facility] Profile.[id number] Name Value Range Interpretation Description Data Sup [...] s"> (3.5-5.0 G/DL)</content> ID Date Data Source HematologyRou.[id number] 03/17/2020 10:30:00 AM EDT [facility] 0400 Name Value Range Interpretation Description [...] NORMAL <content [facility] styleCode="Bold [place] ">[employer] [facility] </content>[facility] Center T <content styleCode="Ital ics"> (NORMAL )</content> ID Date Data Source GFR(Creatinine).[id number] 03/17/2020 10:30:00 AM EDT [facility] 0-0400 Name Value Range Interpretation Code Description Data Pebbles rce(s) Supporting Document(s ) UNK > 60 <content [facility] styleCode="Bold"> Medical Cent er EGFR </content>144 GFR<content styleCode="Italic s"> (> 60 GFR)</content> ID Date Data Source ChemistrySpecia.[id number] 03/17/2020 10:30:00 AM EDT [facility] 0-0400 Name Value Range Interpretation Description [...] 3.0 NG/ML)</conten t> ID Date Data Source CHMROUTINECCDA.[id number] 03/17/2020 10:30:00 AM EDT [facility] -0400 Name Value Range Interpretation Description Data Sup porting Code Source(s) Document(s ) UNK 2.3-3.5 <content [facility] styleCode="Bold Medical ">Globulin Center </content>2.6 G/DL<content styleCode="Ital ics"> (2.3-3.5 G/DL)</content> Folate > 3.0 <content [facility] [Mass/volum styleCode="Bold Medical e] in Serum ">Folic Acid Center or Plasma </content>4.27 NG/ML<content styleCode="Ital ics"> (> 3.0 NG/ML)</content > UNK >= 1.0 <content [facility] styleCode="Bold Medical ">AG Ratio Center </content>1.4 <content styleCode="Ital ics"> (>= 1.0 )</content> Protein 6.3-8.2 Below low normal <content [facility] [Mass/volum styleCode="Bold Medical e] in Serum ">Total Protein Center or Plasma </content>6.2 G/DL L<content styleCode="Ital ics"> (6.3-8.2 G/DL)</content> ID Date Data Source CardiacMarkers.[id number] 03/17/2020 10:30:00 AM EDT [facility] -0400 Name Value Range Interpretation Description Data Sup porting Code Source(s) Document(s ) Troponin < 0.034 <content Saint I.cardiac styleCode="Bold [place] [Mass/volume ">Troponin I Medical ] in Serum </content>< Center or Plasma 0.012 NG/ML<content styleCode="Ital ics"> (< 0.034 NG/ML)</content > ID Date Data Source BMP.[id number] 03/17/2020 10:30:00 AM EDT [facility] Name Value Range Interpretation Description [...] IU/L)</content> UNK > 60 <content [facility] styleCode="Bold"> [facility] EGFR Medical </content>144 Center GFR<content styleCode="Italic s"> [...] s"> (0.2-1.3 MG/DL)</content> ID Date Data Source CardiacMarkers.[id number] 03/17/2020 07:25:00 AM EDT [facility] -0400 Name Value Range Interpretation Description Data Sup porting Code Source(s) Document(s ) Troponin < 0.034 <content [facility] I.cardiac styleCode="Bold [place] [Mass/volume ">Troponin I Medical ] in Serum </content>< Center or Plasma 0.012 NG/ML<content styleCode="Ital ics"> (< 0.034 NG/ML)</content > ID Date Data Source HematologyRou.[id number] 03/17/2020 07:06:00 AM EDT [facility] 0400 Name Value Range Interpretation Description [...] (0.0 KCUMM)</content > ID Date Data Source GFR(Creatinine).[id number] 03/17/2020 07:06:00 AM EDT [facility] 0-0400 Name Value Range Interpretation Code Description Data Pebbles rce(s) Supporting Document(s ) UNK > 60 <content [facility] styleCode="Bold"> Medical Cent er EGFR </content>144 GFR<content styleCode="Italic s"> (> 60 GFR)</content> ID Date Data Source CHMROUTINECCDA.[id number] 03/17/2020 07:06:00 AM EDT [facility] -0400 Name Value Range Interpretation Description [...] (1.6-2.3 MG/DL)</conten t> ID Date Data Source [facility].[id number] 03/17/2020 07:06:00 AM EDT [facility] Name Value Range Interpretation Description [...] t> Sodium 137-145 <content [facility] [Moles/volume] styleCode="[facility] in Serum or d">Sodium Medical Plasma </content>141 [...] Above high normal <content [facility] [Mass/volume] styleCode="[facility] in Serum or d">Glucose Medical Plasma </content>119 Center MG/DL H<content styleCode="Zakia lics"> (74-106 MG/DL)</conten t> UNK > 60 <content [facility] styleCode="Mac [place] d">EGFR Medical </content>144 Center GFR<content styleCode="Zakia lics"> (> 60 GFR)</content> ID Date Data Source [id number] 03/17/2020 12:00:00 AM EDT [facility] Name Value Range Interpretation Code Description Data Pebbles rce(s) Supporting Document(s ) 2019-nCoV [facility] RNA XXX CHERRI+probe- Imp This lab was ordered by [facility] and reported by [employer] [facility]. ID Date Data Source [id number] 02/11/2020 02:59:00 PM EDT [facility] Name Value Range Interpretation Description Data Sup porting Code Source(s) Document(s ) SARS [facility] coronavirus 2 RNA This lab was ordered by [facility] amalia Lynn and reported by [facility]. ID Date Data Source [id number] 01/13/2020 11:43:00 PM EDT [facility] Name Value Range Interpretation Description Data Sup porting Code Source(s) Document(s ) SARS [facility] coronavirus 2 RNA This lab was ordered by Miguel vergara/[facility]amses and reported by [facility]. ID Date Data Source [id number] 01/11/2020 11:30:00 AM EDT [facility] Name Value Range Interpretation Description Data Sup porting Code Source(s) Document(s ) SARS [facility] coronavirus 2 RNA This lab was ordered by [facility] and reported by [facility]. ID Date Data Source HematologyRou.[id number] 12/30/2019 11:00:00 PM EDT [facility] 0400 Name Value Range Interpretation Description [...] low normal <content [facility] [Volume 0 styleCode="Bold [facility] Fraction] of ">Hematocrit Medical Blood by </content>30.7 [...] mean 8.0-11.0 <content [facility] volume [Entitic styleCode="Bold Ishana volume] in Blood ">Mean Platelet Medical by Automated Volume Center count </content>9.0 FL<content styleCode="Ital ics"> (8.0-11.0 FL)</content> ID Date Data Source GFR(Creatinine).[id number] 12/30/2019 11:00:00 PM EDT [facility] 0-0400 Name Value Range Interpretation Code Description Data Pebbles rce(s) Supporting Document(s ) UNK > 60 <content [facility] styleCode="Bold"> Medical Cent er EGFR </content>144 GFR<content styleCode="Italic s"> (> 60 GFR)</content> ID Date Data Source CHMROUTINECCDA.[id number] 12/30/2019 11:00:00 PM EDT [facility] -0400 Name Value Range Interpretation Description [...] (2.5-4.5 MG/DL)</conten t> ID Date Data Source BMP.[id number] 12/30/2019 11:00:00 PM EDT [facility] [...] (> 60 GFR)</content> ID Date Data Source HematologyRou.[id number] 12/25/2019 12:50:00 AM EDT [facility] 0400 Name Value Range Interpretation Description Data Sup porting Code Source(s) Document(s ) Leukocytes 4.4-11.0 <content Saint [#/volume] in styleCode="Amberly Ish[place] Blood by ">White Blood Medical Automated count Cell Count Center </content>5.11 KCUMM<content styleCode="Ital ics"> (4.4-11.0 KCUMM)</content > Erythrocytes 4.4-5.9 Below low normal <content [facility] [#/volume] in styleCode="Bold [place] Blood by ">Red Blood Medical Automated count Cell Count Center </content>3.37 MCUMM L<content styleCode="Ital ics"> (4.4-5.9 MCUMM)</content > Hematocrit 41.0-53. Below low normal <content [facility] [Volume 0 styleCode="Amberly Ish[place] Fraction] of ">Hematocrit Medical Blood by [...] (0.0 KCUMM)</content > ID Date Data Source GFR(Creatinine).[id number] 12/25/2019 12:50:00 AM EDT [facility] 0-0400 Name Value Range Interpretation Code Description Data Pebbles rce(s) Supporting Document(s ) UNK > 60 <content [facility] styleCode="Bold"> Medical Cent er EGFR </content>178 GFR<content styleCode="Italic s"> (> 60 GFR)</content> ID Date Data Source CardiacMarkers.[id number] 12/25/2019 12:50:00 AM EDT [facility] -0400 Name Value Range Interpretation Description Data Sup porting Code Source(s) Document(s ) Troponin < 0.034 <content [facility] I.cardiac styleCode="Bold [place] [Mass/volume ">Troponin I Medical ] in Serum </content>< Center or Plasma 0.012 NG/ML<content styleCode="Ital ics"> (< 0.034 NG/ML)</content > ID Date Data Source [facility] [facility].[id number] 12/25/2019 12:50:00 AM EDT [facility] Name Value Range Interpretation Description [...] normal <content [facility] styleCode="Mac Jacomes d">BUN Medical </content>4 Center MG/DL L<content styleCode="Zakia lics"> (9-20 MG/DL)</conten t> Carbon 22-30 <content [facility] dioxide, total styleCode="Mac Ishaan [Moles/volume] d">Carbon Medical in Serum or Dioxide Center Plasma </content>30 MEQ/L<content styleCode="Zakia lics"> (22-30 MEQ/L)</conten t> Chloride 98-107 <content [facility] [Moles/volume] styleCode="Mac Jacomes in Serum or d">Chloride Medical Plasma </content>102 Center MEQ/L<content styleCode="Zakia lics"> (98-107 MEQ/L)</conten t> Glucose 74-106 Above high normal <content [facility] [Mass/volume] styleCode="Mac Jacomes in Serum or d">Glucose Medical Plasma </content>109 [...] (8.4-10.2 MG/DL)</conten t> ID Date Data Source HematologyRou.[id number] 12/03/2019 08:37:00 PM EDT [facility] 0400 Name Value Range Interpretation Description [...] > Basophils 0.0-1.0 <content [facility] [#/volume] in styleCode="Amberly Quiros Blood by ">Basophil Medical Automated count </content>0.7 [...] ics"> (NORMAL )</content> ID Date Data Source GFR(Creatinine).[id number] 12/03/2019 08:37:00 PM EDT [facility] 0-0400 Name Value Range Interpretation Code Description Data Pebbles rce(s) Supporting Document(s ) UNK > 60 <content [facility] styleCode="Bold"> Medical Cent er EGFR </content>178 GFR<content styleCode="Italic s"> (> 60 GFR)</content> ID Date Data Source CHMROUTINECCDA.[id number] 12/03/2019 08:37:00 PM EDT [facility] -0400 Name Value Range Interpretation Description Data Sup porting Code Source(s) Document(s ) Magnesium 1.6-2.3 Below low normal <content [facility] [Mass/volume] styleCode="Mac Ishaan in Serum or d">Magnesium Medical Plasma </content>1.5 Center MG/DL L<content styleCode="Zakia lics"> (1.6-2.3 MG/DL)</conten t> ID Date Data Source [facility].[id number] 12/03/2019 08:37:00 PM EDT [facility] Name [...] or d">Calcium Medical Plasma </content>8.5 Center MG/DL<content styleCode="Zkaia lics"> (8.4-10.2 MG/DL)</conten t> UNK > 60 <content [facility] styleCode="Mac Ishaan d">EGFR Medical </content>178 Center GFR<content styleCode="Zakia lics"> (> 60 GFR)</content> ID Date Data Source [id number] 11/27/2019 11:55:00 AM EDT [facility] Name Value Range Interpretation Description Data Sup porting Code Source(s) Document(s ) SARS [facility] CORONAVIRUS 2 RNA This lab was ordered by [facility] and reported by [facility]. ID Date Data Source Liver 11/25/2019 12:40:00 PM EDT [facility] Profile.[id number] Name Value Range Interpretation Description Data Sup [...] Range: not available)
ID Date Data Source HematologyRou.[id number] 11/25/2019 12:40:00 PM EDT [facility] 0400 Name Value Range Interpretation Description [...] ics"> (NORMAL )</content> ID Date Data Source GFR(Creatinine).[id number] 11/25/2019 12:40:00 PM EDT [facility] 0-0400 Name Value Range Interpretation Code Description Data Pebbles rce(s) Supporting Document(s ) UNK <content [facility] styleCode="Bold"> Medical Cent er EGFR </content>Test not performed. GFR (Reference Range: not available)
ID Date Data Source Coagulation 11/25/2019 12:40:00 PM [facility] ical [facility] Rout.[id number] EDT Name Value Range Interpretation Description Data [...] cs"> (25.1-36.5 SEC)</content> ID Date Data Source CHMROUTINECCDA.[id number] 11/25/2019 12:40:00 PM EDT [facility] -0400 Name Value Range Interpretation Description [...] Range: not available)
ID Date Data Source CardiacMarkers.[id number] 11/25/2019 12:40:00 PM EDT [facility] -0400 Name Value Range Interpretation Description Data Sup porting Code Source(s) Document(s ) Troponin < 0.034 <content [facility] I.cardiac styleCode="Bold Ishaan [Mass/volume ">Troponin I Medical ] in Serum </content>< Center or Plasma 0.012 NG/ML<content styleCode="Ital ics"> (< 0.034 NG/ML)</content > ID Date Data Source BMP.[id number] 11/25/2019 12:40:00 PM EDT [facility] Name Value Range Interpretation Description [...] Range: not available)
ID Date Data Source [id number] 11/12/2019 10:10:00 AM EDT [facility] Name Value Range Interpretation Description Data Sup porting Code Source(s) Document(s ) SARS [facility] CORONAVIRUS 2 RNA This lab was ordered by [facility] and reported by [facility]. ID Date Data Source [id number] 10/06/2019 09:50:00 AM EDT [facility] Name Value Range Interpretation Code Description Data Pebbles rce(s) Supporting Document(s ) COV2 [facility] This lab was ordered by [facility] and reported by [facility] [place]. ID Date Data Source [id number] 09/21/2019 05:56:00 PM EDT [facility] Name Value Range Interpretation Description Data Sup porting Code Source(s) Document(s ) SARS [facility] CORONAVIRUS 2 RNA This lab was ordered by [facility] and reported by [facility]. ID Date Data Source Microbiology.[id number] 09/18/2019 06:20:00 AM EDT [facility] 400 Name Value Range Interpretation Code Description Data Pebbles rce(s) Supporting Document(s ) UNK <item><content [facility] styleCode="Bold"> Medical [facility] er Culture Status </content>
<t able><tbody><tr>< td>Specimen Number:</td><td>[id number]</td></tr ><tr><td>Sample Collection Date/Time: </td><td>09/18/2019 6:20 AM</td></tr><tr>< td>Specimen Source:</td><td>B LOOD</td></tr><tr ><td>Blood Culture:</td><td> Collection Plate Date: 09/18/2019 06:41 </td></tr><tr><td >Culture Report:</td><td>N O GROWTH AFTER 48 HOURS </td></tr><tr><td >Culture Status:</td><td>P reliminary </td></tr></tbody ></table></item> UNK <item><content [facility] styleCode="Bold"> Medical [facility] er Culture Report </content>
<t able><tbody><tr>< td>Specimen Number:</td><td>[id number]</td></tr ><tr><td>Sample Collection Date/Time: </td><td>09/18/2019 6:20 AM</td></tr><tr>< td>Specimen Source:</td><td>B LOOD</td></tr><tr ><td>Blood Culture:</td><td> Collection Plate Date: 09/18/2019 06:41 </td></tr><tr><td >Culture Status:</td><td>P reliminary </td></tr><tr><td >Culture Report:</td><td>N O GROWTH AFTER 48 HOURS </td></tr></tbody ></table></item> ID Date Data Source Microbiology.[id number] 09/18/2019 06:05:00 AM EDT [facility] 400 Name Value Range Interpretation Code Description Data Pebbles rce(s) Supporting Document(s ) UNK <item><content [facility] styleCode="Bold"> Medical [facility] er Culture Report </content>
<t able><tbody><tr>< td>Specimen Number:</td><td>[id number]</td></tr ><tr><td>Sample Collection Date/Time: </td><td>09/18/2019 6:05 AM</td></tr><tr>< td>Specimen Source:</td><td>B LOOD</td></tr><tr ><td>Blood Culture:</td><td> Collection Plate Date: 09/18/2019 06:41 </td></tr><tr><td >Culture Status:</td><td>P reliminary </td></tr><tr><td >Culture Report:</td><td>N O GROWTH AFTER 48 HOURS </td></tr></tbody ></table></item> UNK <item><content [facility] styleCode="Bold"> Medical [facility] er Culture Status </content>
<t able><tbody><tr>< td>Specimen Number:</td><td>[id number]</td></tr ><tr><td>Sample Collection Date/Time: </td><td>09/18/2019 6:05 AM</td></tr><tr>< td>Specimen Source:</td><td>B LOOD</td></tr><tr ><td>Culture Report:</td><td>N O GROWTH AFTER 48 HOURS </td></tr><tr><td >Culture Status:</td><td>P reliminary </td></tr><tr><td >Blood Culture:</td><td> Collection Plate Date: 09/18/2019 06:41 </td></tr></tbody ></table></item> ID Date Data Source HematologyRou.[id number] 09/17/2019 11:54:00 PM EDT [facility] 0400 Name Value Range Interpretation Code Description Data Supporting Source(s) Document(s ) UNK 0.5-1.5 Below low normal <content [facility] styleCode="Bold"> Medical Retic % Center </content>0.40 % L<content styleCode="Italic s"> (0.5-1.5 %)</content> UNK 0.018-0.1 Below low normal <content [facility] styleCode="Bold"> [facility] Reticulocyte Center Absolute Count </content>0.0148 MCUMM L<content styleCode="Italic s"> (0.018-0.1 MCUMM)</content> UNK 9.3-17.4 <content [facility] styleCode="Bold"> [facility] Immature Center Reticulocyte Fraction </content>15.9 %<content styleCode="Italic s"> (9.3-17.4 %)</content> UNK 30.0-38.0 Below low normal <content [facility] styleCode="Bold"> Medical Reticulocyte Center Hemoglobin Equivalent </content>19.5 PG L<content styleCode="Italic s"> (30.0-38.0 PG)</content> ID Date Data Source HematologyRou.[id number] 09/17/2019 11:42:00 PM EDT [facility] 0400 Name Value Range Interpretation Description [...] ics"> (8.0-11.0 FL)</content> ID Date Data Source GFR(Creatinine).[id number] 09/17/2019 11:42:00 PM EDT [facility] 0-0400 Name Value Range Interpretation Code Description Data Pebbles rce(s) Supporting Document(s ) UNK > 60 <content [facility] styleCode="Bold"> Medical Cent er EGFR </content>144 GFR<content styleCode="Italic s"> (> 60 GFR)</content> ID Date Data Source ChemistrySpecia.[id number] 09/17/2019 11:42:00 PM EDT [facility] 0-0400 Name Value Range Interpretation Description Data Sup porting Code Source(s) Document(s ) Folate > 3.0 <content [facility] [Mass/volume] styleCode="Mac Ishaan in Serum or d">Folic Acid Medical Plasma </content>7.01 Center NG/ML<content styleCode="Zakai lics"> (> 3.0 NG/ML)</conten t> Cobalamin 239-931 Below low normal <content [facility] (Vitamin B12) styleCode="Mac Ishaan [Mass/volume] d">Vitamin B12 Medical in Serum or </content>204 Center Plasma PG/ML L<content styleCode="Zakia lics"> (239-931 PG/ML)</conten t> ID Date Data Source CHMROUTINECCDA.[id number] 09/17/2019 11:42:00 PM EDT [facility] -0400 Name Value Range Interpretation Description [...] (2.5-4.5 MG/DL)</conten t> ID Date Data Source CardiacMarkers.[id number] 09/17/2019 11:42:00 PM EDT [facility] -0400 Name Value Range Interpretation Description Data Sup porting Code Source(s) Document(s ) Troponin < 0.034 <content [facility] I.cardiac styleCode="Bold Ishaan [Mass/volume ">Troponin I Medical ] in Serum </content>0.024 Center or Plasma NG/ML<content styleCode="Ital ics"> (< 0.034 NG/ML)</content > ID Date Data Source BMP.[id number] 09/17/2019 11:42:00 PM EDT [facility] Name Value Range Interpretation Description [...] Data Source Liver 09/06/2019 03:21:00 AM EDT [facility] Profile.[id number] Name Value Range Interpretation Description Data Sup [...] s"> (0.2-1.3 MG/DL)</content> ID Date Data Source HematologyRou.[id number] 09/06/2019 03:21:00 AM EDT [facility] 0400 Name Value Range Interpretation Description [...] ics"> (0 /100)</content> ID Date Data Source GFR(Creatinine).[id number] 09/06/2019 03:21:00 AM EDT [facility] 0-0400 Name Value Range Interpretation Code Description Data Pebbles rce(s) Supporting Document(s ) UNK > 60 <content [facility] styleCode="Bold"> Medical Cent er EGFR </content>230 GFR<content styleCode="Italic s"> (> 60 GFR)</content> ID Date Data Source CHMROUTINECCDA.[id number] 09/06/2019 03:21:00 AM EDT [facility] -0400 Name Value Range Interpretation Description [...] (2.5-4.5 MG/DL)</conten t> ID Date Data Source [facility].[id number] 09/06/2019 03:21:00 AM EDT [facility] Name Value Range Interpretation Description Data Sup porting Code Source(s) Document(s ) Potassium 3.5-5.3 Below lower <content [facility] [Moles/volume] in panic limits styleCode="Bold"> [facility] Serum or Plasma Potassium Medical </content><conten Center t styleCode="Bold"> 2.9 MEQ/L LL</content><cont ent styleCode="Italic s"> (3.5-5.3 MEQ/L)</content> Sodium 137-145 Below low <content [facility] [Moles/volume] in normal styleCode="Bold"> [facility] Serum or Plasma Sodium Medical </content>134 Center MEQ/L L<content styleCode="Italic s"> (137-145 MEQ/L)</content> Chloride 98-107 Below low <content [facility] [Moles/volume] in normal styleCode="Bold"> [facility] Serum or Plasma Chloride Medical </content>95 Center [...] IU/L)</content> UNK > 60 <content [facility] styleCode="Bold"> [facility] EGFR Medical </content>230 Center GFR<content styleCode="Italic s"> (> 60 GFR)</content> Albumin 3.5-5.0 Below low <content [facility] [Mass/volume] in normal styleCode="Bold"> Stephan hs Serum or Plasma Albumin Medical </content>3.4 Center G/DL L<content styleCode="Italic s"> (3.5-5.0 G/DL)</content> ID Date Data Source CHMROUTINECCDA.[id number] 09/05/2019 10:28:00 AM EDT [facility] -0400 Name Value Range Interpretation Description Data Sup porting Code Source(s) Document(s ) Lactate 0.7-2.0 <content [facility] [Mass/volum styleCode="Bold Medical e] in Serum ">Lactic Acid Center or Plasma </content>1.9 MMOLL<content styleCode="Ital ics"> (0.7-2.0 MMOLL)</content > ID Date Data Source [id number] 09/05/2019 10:24:00 AM EDT [facility] Name Value Range Interpretation Code Description Data Pebbles rce(s) Supporting Document(s ) RESULT [facility] This lab was ordered by [facility] and reported by [facility]. ID Date Data Source Microbiology.[id number] 09/05/2019 10:17:00 AM EDT [facility] 400 Name Value Range Interpretation Code Description Data Pebbles rce(s) Supporting Document(s ) UNK <item><content [facility] styleCode="Bold"> Medical Cent er Culture Status </content>
<t able><tbody><tr>< td>Specimen Number:</td><td>[id number]</td></tr ><tr><td>Sample Collection Date/Time: </td><td> 0 10:17 AM</td></tr><tr>< td>Specimen Source:</td><td>B LOOD</td></tr><tr ><td>Blood Culture:</td><td> Collection Plate Date: 09/05/2019 10:23 </td></tr><tr><td >Culture Status:</td><td>P reliminary </td></tr><tr><td >Culture Report:</td><td>C ulture in progress </td></tr><tr><td >Gram Stain:</td><td>GR AM POSITIVE COCCI IN CLUSTERS NOTIFIED WITH READ-BACK KERVIN ROLLE RN </td></tr></tbody ></table></item> [facility] <item><content [facility] styleCode="Bold"> Medical [facility] er Culture Report </content>
<t able><tbody><tr>< td>Specimen Number:</td><td>[id number]</td></tr ><tr><td>Sample Collection Date/Time: </td><td> 0 10:17 AM</td></tr><tr>< td>Specimen Source:</td><td>B LOOD</td></tr><tr ><td>Gram Stain:</td><td>GR AM POSITIVE COCCI IN CLUSTERS NOTIFIED WITH READ-BACK KERVIN ROLLE RN </td></tr><tr><td >Culture Report:</td><td>C ulture in progress </td></tr><tr><td >Culture Status:</td><td>P reliminary </td></tr><tr><td >Blood Culture:</td><td> Collection Plate Date: 09/05/2019 10:23 </td></tr></tbody ></table></item> ID Date Data Source Microbiology.[id number] 09/05/2019 10:16:00 AM EDT [facility] 400 Name Value Range Interpretation Code Description Data Pebbles rce(s) Supporting Document(s ) UNK <item><content [facility] styleCode="Bold"> Medical [facility] Culture Report </content>
<t able><tbody><tr>< td>Specimen Number:</td><td>[id number]</td></tr ><tr><td>Sample Collection Date/Time: </td><td> 0 10:16 AM</td></tr><tr>< td>Specimen Source:</td><td>B LOOD</td></tr><tr ><td>Blood Culture:</td><td> Collection Plate Date: 09/05/2019 10:24 </td></tr><tr><td >Culture Status:</td><td>P reliminary </td></tr><tr><td >Culture Report:</td><td>C ulture in progress </td></tr></tbody ></table></item> UNK <item><content [facility] styleCode="Bold"> Medical [facility] Culture Status </content>
<t able><tbody><tr>< td>Specimen Number:</td><td>[id number]</td></tr ><tr><td>Sample Collection Date/Time: </td><td> 0 10:16 AM</td></tr><tr>< td>Specimen Source:</td><td>B LOOD</td></tr><tr ><td>Culture Report:</td><td>C ulture in progress </td></tr><tr><td >Culture Status:</td><td>P reliminary </td></tr><tr><td >Blood Culture:</td><td> Collection Plate Date: 09/05/2019 10:24 </td></tr></tbody ></table></item> ID Date Data Source Liver 09/05/2019 10:16:00 AM EDT [facility] Profile.[id number] Name Value Range Interpretation Description Data Sup [...] IU/L)</content> Alkaline 38-126 <content [facility] phosphatase styleCode="Bold"> [facility] [Enzymatic Alkaline Medical activity/volume] Phosphatase (ALP) Cente [...] s"> (0.2-1.3 MG/DL)</content> ID Date Data Source HematologyRou.[id number] 09/05/2019 10:16:00 AM EDT [facility] 0400 Name Value Range Interpretation Description [...] ics"> (NORMAL )</content> UNK < 1 <content styleCode="Bold Ishaan ">Immature [...] styleCode="Ital ics"> (NORMAL )</content> UNK NORMAL <content styleCode="Bold Ishaan ">Macrocyte Medical </content>SLIGH Center T <content styleCode="Ital ics"> (NORMAL )</content> UNK NORMAL <content [facility] styleCode="Bold Ishaan ">Hypochromia Medical </content>SLIGH Center T <content styleCode="Ital ics"> (NORMAL )</content> ID Date Data Source GFR(Creatinine).[id number] 09/05/2019 10:16:00 AM EDT [facility] 0-0400 Name Value Range Interpretation Code Description Data Pebbles rce(s) Supporting Document(s ) UNK > 60 <content [facility] styleCode="Bold"> Medical Cent er EGFR </content>178 GFR<content styleCode="Italic s"> (> 60 GFR)</content> ID Date Data Source CHMROUTINECCDA.[id number] 09/05/2019 10:16:00 AM EDT [facility] -0400 Name Value Range Interpretation Description Data Sup porting Code Source(s) Document(s ) UNK 2.3-3.5 <content [facility] styleCode="Bold Medical ">Globulin Center </content>2.6 G/DL<content styleCode="Ital ics"> (2.3-3.5 G/DL)</content> UNK >= 1.0 <content [facility] styleCode="Bold Medical ">AG Ratio Center </content>1.3 <content styleCode="Ital ics"> (>= 1.0 )</content> Protein 6.3-8.2 Below low normal <content [facility] [Mass/volum styleCode="Bold Medical e] in Serum ">Total Protein Center or Plasma </content>6.0 G/DL L<content styleCode="Ital ics"> (6.3-8.2 G/DL)</content> ID Date Data Source [facility].[id number] 09/05/2019 10:16:00 AM EDT [facility] Name Value Range Interpretation Description Data Sup porting Code Source(s) Document(s ) Sodium 137-145 <content [facility] [Moles/volume] in styleCode="Bold"> [facility] Serum or Plasma Sodium Medical </content>141 Center MEQ/L<content styleCode="Italic s"> (137-145 MEQ/L)</content> Potassium 3.5-5.3 Below low <content [facility] [Moles/volume] in normal styleCode="Bold"> [facility] Serum or Plasma Potassium Medical </content>3.2 Center MEQ/L L<content styleCode="Italic s"> (3.5-5.3 MEQ/L)</content> Chloride 98-107 <content [facility] [Moles/volume] in styleCode="Bold"> [facility] Serum or Plasma Chloride Medical </content>104 Center [...] Data Source Liver 08/10/2019 01:50:00 AM EST [facility] Profile.[id number] Name Value Range Interpretation Description Data Sup [...] (7-50 IU/L)</content> UNK 0.0-0.3 <content [facility] styleCode="Bold"> [facility] Bilirubin, Direct Medical </content>< 0.2 Center MG/DL<content styleCode="Italic s"> (0.0-0.3 MG/DL)</content> Bilirubin.total 0.2-1.3 <content [facility] [Mass/volume] in styleCode="Bold"> [facility] Serum or Plasma Bilirubin Total Medical </content>0.4 Center MG/DL<content styleCode="Italic s"> (0.2-1.3 MG/DL)</content> Albumin 3.5-5.0 Below low <content [facility] [Mass/volume] in normal styleCode="Bold"> [facility] hs Serum or Plasma Albumin Medical </content>3.4 Center G/DL L<content styleCode="Italic s"> (3.5-5.0 G/DL)</content> ID Date Data Source HematologyRou.[id number] 08/10/2019 01:50:00 AM MO [facility] 0500 Name Value Range Interpretation Description Data Sup porting Code Source(s) Document(s ) Hematocrit 41.0-53. Below low normal <content [facility] [Volume 0 styleCode="Bold Ishaan Fraction] of ">Hematocrit Medical Blood by </content>27.8 Center Automated count % L<content styleCode="Ital ics"> (41.0-53.0 %)</content> Erythrocytes 4.4-5.9 Below low normal <content [facility] [#/volume] in styleCode="Bold [facility] Blood by ">Red Blood Medical Automated count [...] ics"> (0 /100)</content> ID Date Data Source GFR(Creatinine).[id number] 08/10/2019 01:50:00 AM [place] [facility] 0-0500 Name Value Range Interpretation Code Description Data Pebbles rce(s) Supporting Document(s ) UNK > 60 <content [facility] styleCode="Bold"> Medical Cent er EGFR </content>144 GFR<content styleCode="Italic s"> (> 60 GFR)</content> ID Date Data Source BMP.[id number] 08/10/2019 01:50:00 AM EST [facility] Name Value Range Interpretation Description Data [...] s"> (38-126 IU/L)</content> ID Date Data Source Urinalysis.[id number] 08/09/2019 08:03:00 AM EST [facility] 0 Name Value Range Interpretation Description [...] by Test d">Urine Medical strip Specific Center [place] </content>1.01 0 L<content styleCode="Zakia lics"> (1.015-1.025 )</content> [...] Test strip styleCode="Mac Ishaan d">Urine pH Medical </content>6.5 Center <content styleCode="Zakia lics"> (4.5-8.0 )</content> Nitrite NEGATIVE <content [facility] [Presence] in styleCode="Mac Ishaan Urine by Test d">Urine Medical strip Nitrite Center </content>NEGA TIVE <content styleCode="Zakia lics"> (NEGATIVE )</content> Leukocyte NEGATIVE <content [facility] esterase styleCode="Mac Ishaan [Presence] in d">Urine Medical Urine by Test Leukocyte Center strip </content>NEGA TIVE <content styleCode="Zakia lics"> (NEGATIVE )</content> ID Date Data Source Liver 08/09/2019 08:03:00 AM EST [facility] Profile.[id number] Name Value Range Interpretation Description Data Sup [...] Albumin 3.5-5.0 <content [facility] [Mass/volume] in styleCode="Bold"> Stephna hs Serum or Plasma Albumin Medical </content>3.6 [...] s"> (0.2-1.3 MG/DL)</content> ID Date Data Source HematologyRou.[id number] 08/09/2019 08:03:00 AM [place] [facility] 0500 Name Value Range Interpretation Description [...] ics"> (0 /100)</content> ID Date Data Source GFR(Creatinine).[id number] 08/09/2019 08:03:00 AM MO [facility] 0-0500 Name Value Range Interpretation Code Description Data Pebbles rce(s) Supporting Document(s ) UNK > 60 <content [facility] styleCode="Bold"> Medical Cent er EGFR </content>178 GFR<content styleCode="Italic s"> (> 60 GFR)</content> ID Date Data Source CHMROUTINECCDA.[id number] 08/09/2019 08:03:00 AM EST [facility] -0500 Name Value Range Interpretation Description Data Sup porting Code Source(s) Document(s ) UNK 30-110 <content [facility] styleCode="Bold Medical ">Amylase Center </content>35 IU/L<content styleCode="Ital ics"> (30-110 IU/L)</content> Lipase 23-300 Below low normal <content [facility] [Enzymatic styleCode="Bold Medical activity/vo ">Lipase Center lume] in </content>19 Serum or IU/L L<content Plasma styleCode="Ital ics"> (23-300 IU/L)</content> ID Date Data Source [facility].[id number] 08/09/2019 08:03:00 AM EST [facility] Name Value Range Interpretation Description [...] Data Source Liver 07/28/2019 06:25:00 AM EST [facility] Profile.[id number] Name Value Range Interpretation Description Data Sup [...] styleCode="Italic s"> (7-50 IU/L)</content> Alkaline 38-126 <content [facility] phosphatase styleCode="Bold"> [facility] [Enzymatic Alkaline Medical activity/volume] Phosphatase (ALP) Cente [...] s"> (0.0-0.3 MG/DL)</content> ID Date Data Source HematologyRou.[id number] 07/28/2019 06:25:00 AM [place] [facility] 0500 Name Value Range Interpretation Description [...] ics"> (8.0-11.0 [place])</content> ID Date Data Source GFR(Creatinine).[id number] 07/28/2019 06:25:00 AM [place] [facility] 0-0500 Name Value Range Interpretation Code Description Data Pebbles rce(s) Supporting Document(s ) UNK > 60 <content [facility] styleCode="Bold"> Medical Cent er EGFR </content>178 GFR<content styleCode="Italic s"> (> 60 GFR)</content> ID Date Data Source CardiacMarkers.[id number] 07/28/2019 06:25:[address] [facility] -0500 Name Value Range Interpretation Description Data Sup porting Code Source(s) Document(s ) Troponin < 0.034 <content [facility] I.cardiac styleCode="Bold [place] [Mass/volume ">Troponin I Medical ] in Serum </content>< Center or Plasma 0.012 NG/ML<content styleCode="Ital ics"> (< 0.034 NG/ML)</content > ID Date Data Source BMP.[id number] 07/28/2019 06:25:00 AM [facility] Name Value Range Interpretation Description Data [...] Dunae phs Serum or Plasma Chloride Medical </content>105 [...] Data Source Liver 05/13/2019 11:52:00 AM EST [facility] Profile.[id number] Name Value Range Interpretation Description Data Sup [...] s"> (3.5-5.0 G/DL)</content> ID Date Data Source HematologyRou.[id number] 05/13/2019 11:52:00 AM MO [facility] 0500 Name Value Range Interpretation Description Data Sup porting Code Source(s) Document(s ) Leukocytes 4.4-11.0 <content [facility] [#/volume] in styleCode="Bold [facility] Blood by ">White Blood Medical Automated count [...] (0.0 KCUMM)</content > ID Date Data Source GFR(Creatinine).[id number] 05/13/2019 11:52:00 AM [place] [facility] 0-0500 Name Value Range Interpretation Code Description Data Pebbles rce(s) Supporting Document(s ) UNK > 60 <content [facility] styleCode="Bold"> Medical Cent er EGFR </content>178 GFR<content styleCode="Italic s"> (> 60 GFR)</content> ID Date Data Source MROUTINECCDA.[id number] 05/13/2019 11:52:00 AM [place] [facility] -0500 Name Value Range Interpretation Description [...] (2.5-4.5 MG/DL)</conten t> ID Date Data Source [facility].[id number] 05/13/2019 11:52:00 AM EST [facility] Center Name Value Range [...] s"> (38-126 IU/L)</content> ID Date Data Source HematologyRou.[id number] 05/10/2019 05:50:00 AM [place] [facility] 0500 Name Value Range Interpretation Description [...] (0.0 KCUMM)</content > ID Date Data Source GFR(Creatinine).[id number] 05/10/2019 05:50:00 AM [place] [facility] 0-0500 Name Value Range Interpretation Code Description Data Pebbles rce(s) Supporting Document(s ) UNK > 60 <content [facility] styleCode="Bold"> Medical Cent er EGFR </content>178 GFR<content styleCode="Italic s"> (> 60 GFR)</content> ID Date Data Source CHMROUTINECCDA.[id number] 05/10/2019 05:50:00 AM [place] dalal [facility] -0500 Name Value Range Interpretation [...] (1.6-2.3 MG/DL)</conten t> ID Date Data Source [facility].[id number] 05/10/2019 05:50:00 AM EST [facility] Name Value Range Interpretation Description [...] Data Source Liver 05/09/2019 12:46:00 PM EST [facility] Profile.[id number] Name Value Range Interpretation Description Data Sup [...] MG/DL)</content> Alkaline 38-126 <content [facility] phosphatase styleCode="Bold"> [facility] [Enzymatic Alkaline Medical activity/volume] Phosphatase (ALP) Cente r in Serum or Plasma </content>117 IU/L<content styleCode="Italic s"> (38-126 IU/L)</content> Albumin 3.5-5.0 Below low <content [facility] [Mass/volume] in normal styleCode="Bold"> Stephan hs Serum or Plasma Albumin Medical </content>3.1 Center G/DL L<content styleCode="Italic s"> (3.5-5.0 G/DL)</content> ID Date Data Source GFR(Creatinine).[id number] 05/09/2019 12:46:[address] [facility] 0-0500 Name Value Range Interpretation Code Description Data Pebbles rce(s) Supporting Document(s ) UNK > 60 <content [facility] styleCode="Bold"> Medical Cent er EGFR </content>178 GFR<content styleCode="Italic s"> (> 60 GFR)</content> ID Date Data Source CHMROUTINECCDA.[id number] 05/09/2019 12:46:[address] [facility] -0500 Name Value Range Interpretation Description [...] (2.5-4.5 MG/DL)</conten t> ID Date Data Source [id number] 05/09/2019 12:46:00 PM EST [facility] Name Value Range Interpretation Description Data Sup porting Code Source(s) Document(s ) Sodium 137-145 Below low <content Saint [Moles/volume] in normal styleCode="Bold"> [facility] Serum or Plasma Sodium Medical </content>136 Center MEQ/L L<content styleCode="Italic s"> (137-145 MEQ/L)</content> Chloride 98-107 <content [facility] [Moles/volume] in styleCode="Bold"> [facility] Serum or Plasma Chloride Medical </content>102 [...] IU/L)</content> Alkaline 38-126 <content [facility] phosphatase styleCode="Bold"> [facility] [Enzymatic Alkaline Medical activity/volume] Phosphatase (ALP) Cente [...] Data Source Liver 05/08/2019 07:35:00 AM EST [facility] Profile.[id number] Name Value Range Interpretation Description Data Sup [...] s"> (3.5-5.0 G/DL)</content> ID Date Data Source LIPID.[id number] 05/08/2019 07:35:00 AM EST [facility] Center Name Value Range Interpretation Description Data Sup porting Code Source(s) Document(s ) Triglyceride < 150 <content [facility] [Mass/volume] in styleCode="Mac Jacomes Serum or Plasma d">Triglycerid Medical es Center [...] Saint styleCode="Mac [place] d">LDL-[facility] Center </content>74 MG/DL<content styleCode="Zakia lics"> (< 100 MG/DL)</conten t> ID Date Data Source HematologyRou.[id number] 05/08/2019 07:35:00 AM [place] [facility] 0500 Name Value Range Interpretation Description [...] (0.0 KCUMM)</content > ID Date Data Source GFR(Creatinine).[id number] 05/08/2019 07:35:00 AM [place] Hall [facility] 0-0500 Name Value Range Interpretation Code Description Data Pebbles rce(s) Supporting Document(s ) UNK > 60 <content [facility] styleCode="Bold"> Medical Cent er EGFR </content>178 GFR<content styleCode="Italic s"> (> 60 GFR)</content> ID Date Data Source JORGE LUISMRMARLENE.[id number] 05/08/2019 07:35:00 AM [place] dal[place] [facility] -0500 Name Value Range Interpretation [...] (1.6-2.3 MG/DL)</conten t> ID Date Data Source [facility].[id number] 05/08/2019 07:35:00 AM EST [facility] Name Value Range Interpretation Description Data Sup porting Code Source(s) Document(s ) Sodium 137-145 Below low <content [facility] [Moles/volume] in normal styleCode="Bold"> [facility] Serum or Plasma Sodium Medical </content>136 Center [...] IU/L)</content> Alkaline 38-126 <content [facility] phosphatase styleCode="Bold"> [facility] [Enzymatic Alkaline Medical activity/volume] Phosphatase (ALP) Cente [...] s"> (3.5-5.0 G/DL)</content> ID Date Data Source Urinalysis.[id number] 05/07/2019 04:00:00 PM EST [facility] nt [facility] 0 Name Value Range Interpretation Description Data Sup porting Code Source(s) Document(s ) Color of Urine YELLOW <content Saint styleCode="Mac [facility] d">Color, Medical Urine Center </content>AMBE R <content styleCode="Zakia lics"> (YELLOW )</content> UNK CLEAR <content [facility] styleCode="Mac Jacomes d">Urine Medical Clarity Center </content>CLOU DY <content [...] by Test d">Urine Medical strip Specific Center [place] </content>1.01 0 L<content styleCode="Zakia lics"> (1.015-1.025 )</content> Hemoglobin NEGATIVE <content [facility] [Presence] in styleCode="Mac [facility] Urine by Test d">Urine Blood Medical strip </content>TRAC Center E <content styleCode="Zakia lics"> (NEGATIVE )</content> pH of Urine by 4.5-8.0 Above high <content [facility] Test strip normal styleCode="Mac Jacomes d">Urine pH Medical </content>>= Center 9.0 H<content styleCode="Zakia lics"> (4.5-8.0 )</content> Urobilinogen 0.2-1.0 <content [facility] [Units/volume] styleCode="Mac [facility] in Urine by d">Urine Medical [...] styleCode="Zakia lics"> (NEGATIVE )</content> Nitrite NEGATIVE <content [Presence] in styleCode="Mac [facility] Urine by Test [...] (NONE SEEN HPF)</content> ID Date Data Source CHMROUTINECCDA.[id number] 05/07/2019 04:00:[address] [facility] -0500 Name Value Range Interpretation Description Data Sup porting Code Source(s) Document(s ) Cannabinoids <content [facility] [Presence] in styleCode="Mac [facility] Urine by Screen d">Cannabinoid Medical method >50 ng/mL s Center </content>NEGA TIVE NG/ML (Reference Range: not available)<br/ > ID Date Data Source Liver 05/07/2019 02:18:00 PM [facility] Profile.[id number] Name Value Range Interpretation Description Data Sup [...] not available)
Alkaline <content [facility] phosphatase styleCode="Bold"> [facility] [Enzymatic Alkaline Medical activity/volume] Phosphatase (ALP) Cente [...] s"> (3.5-5.0 G/DL)</content> ID Date Data Source GFR(Creatinine).[id number] 05/07/2019 02:18:[address] [facility] 0-0500 Name Value Range Interpretation Code Description Data Pebbles rce(s) Supporting Document(s ) UNK > 60 <content [facility] styleCode="Bold"> Medical Cent er EGFR </content>178 GFR<content styleCode="Italic s"> (> 60 GFR)</content> ID Date Data Source [id number] 05/07/2019 02:18:00 PM EST [facility] Center Name Value Range Interpretation Description Data Sup porting Code Source(s) Document(s ) Sodium 137-145 <content [facility] [Moles/volume] in styleCode="Bold"> [facility] phs Serum or Plasma Sodium Medical </content>137 Center MEQ/L<content styleCode="Italic s"> (137-145 MEQ/L)</content> Potassium <content [facility] [Moles/volume] in styleCode="Bold"> [facility] Serum or Plasma Potassium Medical </content>Test Center [...] G/DL)</content> ID Date Data Source [facility].[id number] 05/07/2019 02:18:[address] [facility] -0500 Name Value Range Interpretation Description [...] ics"> (6.3-8.2 G/DL)</content> ID Date Data Source GFR(Creatinine).[id number] 05/07/2019 12:50:[address] [facility] 0-0500 Name Value Range Interpretation Code Description Data Pebbles rce(s) Supporting Document(s ) UNK <content [facility] styleCode="Bold"> Medical Cent er EGFR </content>Test not performed. GFR (Reference Range: not available)
ID Date Data Source [facility].[id number] 05/07/2019 12:50:00 PM [facility] Name Value Range Interpretation Description Data [...] Data Source Liver 05/07/2019 10:05:00 AM EST [facility] Profile.[id number] Name Value Range Interpretation Description Data Sup [...] available)
Albumin <content [facility] [Mass/volume] in styleCode="Bold"> [facility] hs Serum or Plasma Albumin Medical </content>Test Center not performed. G/DL (Reference Range: not available)
ID Date Data Source HematologyRou.[id number] 05/07/2019 10:05:00 AM MO [facility] 0500 Name Value Range Interpretation Description [...] (0.0 KCUMM)</content > ID Date Data Source GFR(Creatinine).[id number] 05/07/2019 10:05:00 AM [place] [facility] 0-0500 Name Value Range Interpretation Code Description Data Pebbles rce(s) Supporting Document(s ) UNK <content [facility] styleCode="Bold"> Medical Cent er EGFR </content>Test not performed. GFR (Reference Range: not available)
ID Date Data Source BMP.[id number] 05/07/2019 10:05:00 AM EST [facility] Name Value Range Interpretation Description Data Sup porting Code Source(s) Document(s ) Chloride <content [facility] [Moles/volume] in styleCode="Bold"> [facility] Serum or Plasma Chloride Medical </content>Test Center [...] Data Source Liver 02/19/2019 05:25:00 PM EDT [facility] Profile.[id number] Name Value Range Interpretation Description Data Sup [...] s"> (0.2-1.3 MG/DL)</content> ID Date Data Source HematologyRou.[id number] 02/19/2019 05:25:00 PM EDT [facility] nt [facility] 0400 Name Value Range Interpretation Description Data Sup porting Code Source(s) Document(s ) Leukocytes 4.4-11.0 <content [facility] [#/volume] in styleCode="Bold [facility] Blood by ">White Blood Medical Automated count [...] Platelet mean 8.0-11.0 <content [facility] volume [Entitic styleCode="Amberly [facility] volume] in Blood ">Mean Platelet Medical by [...] (130-400 KCUMM)</content > ID Date Data Source GFR(Creatinine).[id number] 02/19/2019 05:25:00 PM EDT [facility] 0-0400 Name Value Range Interpretation Code Description Data Pebbles rce(s) Supporting Document(s ) UNK > 60 <content [facility] styleCode="Bold"> Medical Cent er EGFR </content>144 GFR<content styleCode="Italic s"> (> 60 GFR)</content> ID Date Data Source [facility].[id number] 02/19/2019 05:25:00 PM EDT [facility] Name Value Range Interpretation Description Data Sup porting Code Source(s) Document(s ) Sodium 137-145 <content [facility] [Moles/volume] in styleCode="Bold"> [facility] Serum or Plasma Sodium Medical </content>145 Center MEQ/L<content styleCode="Italic s"> (137-145 MEQ/L)</content> Potassium <content [facility] [Moles/volume] in styleCode="Bold"> [facility] Serum or Plasma Potassium Medical </content>Test Center [...] 98-107 <content [facility] [Moles/volume] in styleCode="Bold"> [facility] Serum or Plasma Chloride Medical </content>101 Center [...] Value Status Description Data Source(s ) Smoking 03/29/2020 Former Smoker completed Former Smoker [facility] 05:20:00 PM EDT Medical C enter Smoking 03/29/2020 Former Smoker completed Former Smoker [facility] 05:10:00 PM EDT Medical C enter Smoking 03/29/2020 Former Smoker completed Former Smoker [facility] 05:05:00 PM EDT Medical C enter Smoking 03/26/2020 Former Smoker completed Former Smoker [facility] 07:59:00 PM EDT Medical C enter Smoking 03/26/2020 Former Smoker completed Former Smoker [facility] 07:56:00 PM EDT Medical C enter Smoking 03/24/2020 Former Smoker completed Former Smoker [facility] 05:35:00 PM EDT Medical C enter Smoking 03/24/2020 Former Smoker completed Former Smoker [facility] 05:35:00 PM EDT Medical C enter Smoking 03/24/2020 Former Smoker completed Former Smoker [facility] 05:31:00 PM EDT Medical C enter Smoking 03/23/2020 Former Smoker completed Former Smoker [facility] 10:56:00 PM EDT Medical C enter [...] 02/04/2020 Former Smoker completed Former Smoker [facility] 11:26:00 AM EDT Medical C enter Smoking 01/25/2020 Former Smoker completed Former Smoker [facility] 06:44:00 PM EDT Medical C enter Smoking 01/25/2020 Former Smoker completed Former Smoker [facility] 06:23:00 PM EDT Medical C enter Smoking 01/25/2020 Former Smoker completed Former Smoker [facility] 06:20:00 PM EDT Medical C enter Smoking 01/24/2020 Former Smoker completed Former Smoker [facility] 08:50:00 PM EDT Medical C enter [...] Smoking 12/29/2019 Former Smoker completed Former Smoker [facility] 06:21:00 PM EDT Medical C enter Smoking 12/29/2019 Former Smoker completed Former Smoker [facility] 04:10:00 PM EDT Medical C enter [...] 12/27/2019 Former Smoker completed Former Smoker [facility] 07:45:00 PM EDT Medical C enter Smoking 12/27/2019 Former Smoker completed Former Smoker [facility] 06:39:00 PM EDT Medical C enter Smoking 12/27/2019 Former Smoker completed Former Smoker [facility] 06:30:00 PM EDT Medical C enter Smoking 12/27/2019 Former Smoker completed Former Smoker [facility] 12:12:00 PM EDT Medical C enter Smoking 12/27/2019 Former Smoker completed Former Smoker [facility] 12:10:00 PM EDT Medical C enter Smoking 12/27/2019 Former Smoker completed Former Smoker [facility] 12:07:00 PM EDT Medical C enter [...] 12/04/2019 Former Smoker completed Former Smoker [facility] 09:42:00 PM EDT Medical C enter Smoking 12/04/2019 Former Smoker completed Former Smoker [facility] 09:13:00 PM EDT Medical C enter [...] 11/25/2019 Former Smoker completed Former Smoker [facility] 10:11:00 PM EDT Medical C enter Smoking 11/25/2019 Former Smoker completed Former Smoker [facility] 01:34:00 PM EDT Medical C enter Smoking 11/25/2019 Former Smoker completed Former Smoker [facility] 12:13:00 PM EDT Medical C enter Smoking 11/25/2019 Former Smoker completed Former Smoker [facility] 01:19:00 AM EDT Medical C enter Smoking 11/25/2019 Former Smoker completed Former Smoker [facility] 01:11:00 AM EDT Medical C enter Smoking 11/24/2019 Former Smoker completed Former Smoker [facility] 11:51:00 PM EDT Medical C enter [...] 11/18/2019 Former Smoker completed Former Smoker [facility] 01:47:00 PM EDT Medical C enter [...] Smoker completed Former Smoker [facility] 06:57:00 PM EDT Medical C enter Smoking 10/27/2019 Former Smoker completed Former Smoker [facility] 06:52:00 PM EDT Medical C enter Smoking 10/22/2019 Former Smoker completed Former Smoker [facility] 06:15:00 PM EDT Medical C enter Smoking 10/22/2019 Former Smoker completed Former Smoker [facility] 06:10:00 PM EDT Medical C enter Smoking 10/22/2019 Former Smoker completed Former Smoker [facility] 01:56:00 AM EDT Medical C enter Smoking 10/22/2019 Former Smoker completed Former Smoker [facility] 01:24:00 AM EDT Medical C enter [...] 10/15/2019 Former Smoker completed Former Smoker [facility] 01:28:00 PM EDT Medical C enter Smoking 10/13/2019 Former Smoker completed Former Smoker [facility] 07:42:00 PM EDT Medical C enter Smoking 10/13/2019 Former Smoker completed Former Smoker [facility] 07:38:00 PM EDT Medical C enter Smoking 10/13/2019 Former Smoker completed Former Smoker [facility] 07:36:00 PM EDT Medical C enter Smoking 10/13/2019 Former Smoker completed Former Smoker [facility] 02:20:00 PM EDT Medical C enter Smoking 10/13/2019 Former Smoker completed Former Smoker [facility] 08:08:00 AM EDT Medical C enter Smoking 10/13/2019 Former Smoker completed Former Smoker [facility] 08:02:00 AM EDT Medical C enter [...] 09/18/2019 Occasional Smoker completed Occasional Smoker [facility] 04:16:00 AM EDT Medical C enter Smoking [...] Former Smoker [facility] 09:24:00 PM EDT Medical C enter Smoking 09/13/2019 Former Smoker completed Former Smoker [facility] 08:02:00 PM EDT Medical C enter Smoking 09/13/2019 Former Smoker completed Former Smoker [facility] 07:43:00 PM EDT Medical C enter [...] Ever completed Denies Ever Smoked [facility] 03:42:00 PM EST Smoked Medical C enter [...] 10:00:00 PM EDT Smoked Medical C enter Vital Signs ID Date Data Source UNK Name Value Range Interpretation Code Description Data Source(s) Oxygen 93 % 93 % [facility] saturation in Medical Arterial blood Center by Pulse oximetry Body weight 90.399528 kg 90.902037 kg [facility] Measured [facility] Center Body temperature 36.144856 Kaylie 36.936375 Kaylie [facility] Respiratory rate 20 /min 20 /min [facility] Oxygen 90 % 90 % [facility] saturation in Medical Arterial blood Center by Pulse oximetry Heart rate 96 /min 96 /min [facility] Body height 177.319066 cm 177.860868 cm [facility] Diastolic blood 63 mm[Hg] 63 mm[Hg] [facility] pressure Medical Center Systolic blood 120 mm[Hg] 120 mm[Hg] [facility] Medical Center Body mass index 28.4 kg/m2 28.4 kg/m2 [facility] (BMI) [Ratio] Medical Center Body temperature 36.294269 Kaylie 36.006325 Kaylie [facility] Respiratory rate 18 /min 18 /min [facility] Oxygen 97 % 97 % [facility] saturation in Medical Arterial blood Center by Pulse oximetry Heart rate 90 /min 90 /min [facility] Diastolic blood 75 mm[Hg] 75 mm[Hg] [facility] Medical Center Systolic blood 145 mm[Hg] 145 mm[Hg] [facility] Body weight 68.981501 kg 68.996786 kg [facility] Body temperature 36.008533 Kaylie 36.589918 Kaylie [facility] Respiratory rate 18 /min 18 /min [facility] Oxygen 100 % 100 % [facility] saturation in Medical Arterial blood Center by Pulse oximetry Heart rate 88 /min 88 /min [facility] Body height 170.749314 cm 170.637735 cm [facility] Diastolic blood 74 mm[Hg] 74 mm[Hg] [facility] pressure Medical Center Systolic blood 130 mm[Hg] 130 mm[Hg] [facility] Center Body mass index 23.4 kg/m2 23.4 kg/m2 [facility] (BMI) [Ratio] Medical Center Body temperature 37.518048 Kaylie 37.841421 Kaylie [facility] Respiratory rate 18 /min 18 /min [facility] Oxygen 93 % 93 % [facility] saturation in Medical Arterial blood Center by Pulse oximetry Heart rate 97 /min 97 /min [facility] Diastolic blood 81 mm[Hg] 81 mm[Hg] [facility] pressure Medical Center Systolic blood 129 mm[Hg] 129 mm[Hg] [facility] Center Body temperature 37.401026 Kaylie 37.851085 Kaylie [facility] Respiratory rate 19 /min 19 /min [facility] Oxygen 93 % 93 % [facility] saturation in Medical Arterial blood Center by Pulse oximetry Heart rate 96 /min 96 /min [facility] Diastolic blood 76 mm[Hg] 76 mm[Hg] [facility] Center Systolic blood 134 mm[Hg] 134 mm[Hg] [facility] Body temperature 37.073775 Kaylie 37.827251 Kaylie [facility] Respiratory rate 19 /min 19 /min [facility] Oxygen 93 % 93 % [facility] saturation in Medical Arterial blood Center by Pulse oximetry Heart rate 95 /min 95 /min [facility] Diastolic blood 66 mm[Hg] 66 mm[Hg] [facility] Center Systolic blood 154 mm[Hg] 154 mm[Hg] [facility] Body temperature 37.028888 Kaylie 37.397903 Kaylie [facility] Respiratory rate 18 /min 18 /min [facility] Oxygen 95 % 95 % [facility] saturation in Medical Arterial blood Center by Pulse oximetry Heart rate 86 /min 86 /min [facility] Diastolic blood 72 mm[Hg] 72 mm[Hg] [facility] Systolic blood 108 mm[Hg] 108 mm[Hg] [facility] Body temperature 36.066943 Kaylie 36.309238 Kaylie [facility] Respiratory rate 18 /min 18 /min [facility] Oxygen 98 % 98 % [facility] saturation in Medical Arterial blood Center by Pulse oximetry Heart rate 84 /min 84 /min [facility] Diastolic blood 80 mm[Hg] 80 mm[Hg] [facility] Systolic blood 127 mm[Hg] 127 mm[Hg] [facility] Body temperature 37.962328 Kaylie 37.632302 Kaylie [facility] Respiratory rate 16 /min 16 /min [facility] Oxygen 98 % 98 % [place] saturation in Medical Arterial blood Center by Pulse oximetry Heart rate 84 /min 84 /min [facility] Diastolic blood 76 mm[Hg] 76 mm[Hg] [facility] pressure Medical Center Systolic blood 128 mm[Hg] 128 mm[Hg] [facility] Body temperature 37.534817 Kaylie 37.042945 Kaylie [facility] Respiratory rate 16 /min 16 /min [facility] Oxygen 98 % 98 % [facility] [place] saturation in Medical Arterial blood Center by Pulse oximetry Heart rate 84 /min 84 /min [facility] Diastolic blood 76 mm[Hg] 76 mm[Hg] [facility] Systolic blood 128 mm[Hg] 128 mm[Hg] [facility] [place] Body temperature 37.179401 Kaylie 37.188100 Kaylie [facility] Respiratory rate 17 /min 17 /min [facility] Oxygen 98 % 98 % [facility] [place] saturation in Medical Arterial blood Center by Pulse oximetry Heart rate 87 /min 87 /min [facility] Diastolic blood 70 mm[Hg] 70 mm[Hg] [facility] Systolic blood 121 mm[Hg] 121 mm[Hg] [facility] Body temperature 36.793208 Kaylie 36.084942 Kaylie [facility] Respiratory rate 16 /min 16 /min [facility] Oxygen 98 % 98 % [facility] [place] saturation in Medical Arterial blood Center by Pulse oximetry Heart rate 89 /min 89 /min [facility] Diastolic blood 75 mm[Hg] 75 mm[Hg] [facility] Systolic blood 135 mm[Hg] 135 mm[Hg] [facility] Body temperature 36.309589 Kaylie 36.908356 Kaylie [facility] Respiratory rate 17 /min 17 /min [facility] Oxygen 96 % 96 % [facility] [place] saturation in Medical Arterial blood Center by Pulse oximetry Heart rate 95 /min 95 /min [facility] Diastolic blood 78 mm[Hg] 78 mm[Hg] [facility] pressure [facility] Center Systolic blood 141 mm[Hg] 141 mm[Hg] [facility] Body temperature 37.160287 Kaylie 37.642029 Kaylie [facility] Respiratory rate 20 /min 20 /min [facility] Heart rate 98 /min 98 /min [facility] Diastolic blood 61 mm[Hg] 61 mm[Hg] [facility] Systolic blood 142 mm[Hg] 142 mm[Hg] [facility] Body temperature 36.176481 Kaylie 36.481695 Kaylie [facility] Respiratory rate 20 /min 20 /min [facility] Heart rate 80 /min 80 /min [facility] Diastolic blood 72 mm[Hg] 72 mm[Hg] [facility] Systolic blood 135 mm[Hg] 135 mm[Hg] [facility] Body temperature 36.170370 Kaylie 36.812268 Kaylie [facility] Respiratory rate 20 /min 20 /min [facility] Heart rate 91 /min 91 /min [facility] Diastolic blood 77 mm[Hg] 77 mm[Hg] [facility] Systolic blood 128 mm[Hg] 128 mm[Hg] [facility] Body temperature 36.953116 Kaylie 36.275324 Kaylie [facility] Respiratory rate 20 /min 20 /min [facility] Heart rate 102 /min 102 /min [facility] Diastolic blood 72 mm[Hg] 72 mm[Hg] [facility] Systolic blood 102 mm[Hg] 102 mm[Hg] [facility] Body weight 114.655316 kg 114.046556 kg [facility] Body height 175.480056 cm 175.646049 cm [facility] Body mass index 37.11 kg/m2 37.11 kg/m2 [facility] (BMI) [Ratio] Medical Center Body temperature 36.165730 Kaylie 36.365131 Kaylie [facility] Respiratory rate 20 /min 20 /min [facility] Heart rate 91 /min 91 /min [facility] Diastolic blood 71 mm[Hg] 71 mm[Hg] [facility] Systolic blood 156 mm[Hg] 156 mm[Hg] [facility] Body temperature 36.887834 Kaylie 36.518328 Kaylie [facility] Respiratory rate 20 /min 20 /min [facility] Heart rate 97 /min 97 /min [facility] Diastolic blood 88 mm[Hg] 88 mm[Hg] [facility] Center Systolic blood 182 mm[Hg] 182 mm[Hg] [facility] Body weight 114.407656 kg 114.971358 kg [facility] Body height 177.395469 cm 177.751413 cm [facility] Body temperature 37.312788 Kaylie 37.697448 Kaylie [facility] Respiratory rate 18 /min 18 /min [facility] Heart rate 113 /min 113 /min [facility] Diastolic blood 102 mm[Hg] 102 mm[Hg] [facility] Center Systolic blood 156 mm[Hg] 156 mm[Hg] [facility] Oxygen 96 % 96 % [facility] saturation in Medical Arterial blood Center by Pulse oximetry Body temperature 37.656987 Kaylie 37.994988 Kaylie [facility] Respiratory rate 19 /min 19 /min [facility] Heart rate 107 /min 107 /min [facility] Diastolic blood 90 mm[Hg] 90 mm[Hg] [facility] Center Systolic blood 154 mm[Hg] 154 mm[Hg] [facility] Oxygen 96 % 96 % [place] saturation in Medical Arterial blood Center by Pulse oximetry Body temperature 37.177201 Kaylie 37.761454 Kaylie [facility] Respiratory rate 19 /min 19 /min [facility] Heart rate 104 /min 104 /min [facility] Diastolic blood 92 mm[Hg] 92 mm[Hg] [facility] Systolic blood 148 mm[Hg] 148 mm[Hg] [facility] Oxygen 98 % 98 % [place] saturation in Medical Arterial blood Center by Pulse oximetry Body temperature 36.921382 Kaylie 36.297213 Kaylie [facility] Respiratory rate 17 /min 17 /min [facility] Heart rate 75 /min 75 /min [facility] Diastolic blood 78 mm[Hg] 78 mm[Hg] [facility] Center Systolic blood 125 mm[Hg] 125 mm[Hg] [facility] Oxygen 97 % 97 % [facility] [place] saturation in Medical Arterial blood Center by Pulse oximetry Oxygen 98 % 98 % [facility] [place] saturation in Medical Arterial blood Center by Pulse oximetry Body temperature 36.047114 Kaylie 36.705010 Kaylie [facility] Respiratory rate 17 /min 17 /min [facility] Oxygen 97 % 97 % [facility] [place] saturation in Medical Arterial blood Center by Pulse oximetry Heart rate 75 /min 75 /min [facility] Diastolic blood 81 mm[Hg] 81 mm[Hg] [facility] Systolic blood 139 mm[Hg] 139 mm[Hg] [facility] Body temperature 36.324844 Kaylie 36.537498 Kaylie [facility] Respiratory rate 17 /min 17 /min [facility] Oxygen 95 % 95 % [facility] [place] saturation in Medical Arterial blood Center by Pulse oximetry Heart rate 70 /min 70 /min [facility] Diastolic blood 71 mm[Hg] 71 mm[Hg] [facility] Systolic blood 127 mm[Hg] 127 mm[Hg] [facility] [place] Body temperature 36.994212 Kaylie 36.773752 Kaylie [facility] Respiratory rate 18 /min 18 /min [facility] Oxygen 97 % 97 % [place] saturation in Medical Arterial blood Center by Pulse oximetry Heart rate 73 /min 73 /min [facility] Diastolic blood 66 mm[Hg] 66 mm[Hg] [facility] [place] Systolic blood 139 mm[Hg] 139 mm[Hg] [facility] [place] Respiratory rate 16 /min 16 /min [facility] Oxygen 963 % 963 % [place] saturation in Medical Arterial blood Center by Pulse oximetry Heart rate 80 /min 80 /min [facility] Diastolic blood 80 mm[Hg] 80 mm[Hg] [facility] Systolic blood 154 mm[Hg] 154 mm[Hg] [facility] [place] Body temperature 36.131098 Kaylie 36.758482 Kaylie [facility] Respiratory rate 19 /min 19 /min [facility] Oxygen 99 % 99 % [place] saturation in Medical Arterial blood Center by Pulse oximetry Heart rate 81 /min 81 /min [facility] Diastolic blood 76 mm[Hg] 76 mm[Hg] [facility] Center Systolic blood 133 mm[Hg] 133 mm[Hg] [facility] Body temperature 36.751768 Kaylie 36.805389 Kaylie [facility] Respiratory rate 16 /min 16 /min [facility] Oxygen 95 % 95 % [facility] [place] saturation in Medical Arterial blood Center by Pulse oximetry Heart rate 73 /min 73 /min [facility] Diastolic blood 74 mm[Hg] 74 mm[Hg] [facility] Systolic blood 138 mm[Hg] 138 mm[Hg] [facility] Body temperature 36.791284 Kaylie 36.183275 Kaylie [facility] Respiratory rate 18 /min 18 /min [facility] Oxygen 98 % 98 % [place] saturation in Medical Arterial blood Center by Pulse oximetry Heart rate 76 /min 76 /min [facility] Diastolic blood 78 mm[Hg] 78 mm[Hg] [facility] [place] Systolic blood 121 mm[Hg] 121 mm[Hg] [facility] Body temperature 36.189850 Kaylie 36.634496 Kaylie [facility] Respiratory rate 17 /min 17 /min [facility] Oxygen 97 % 97 % [place] saturation in Medical Arterial blood Center by Pulse oximetry Heart rate 84 /min 84 /min [facility] Diastolic blood 74 mm[Hg] 74 mm[Hg] [facility] Systolic blood 128 mm[Hg] 128 mm[Hg] [facility] Body temperature 36.891493 Kaylie 36.720443 Kaylie [facility] Respiratory rate 18 /min 18 /min [facility] Oxygen 97 % 97 % [place] saturation in Medical Arterial blood Center by Pulse oximetry Heart rate 88 /min 88 /min [facility] Diastolic blood 102 mm[Hg] 102 mm[Hg] [facility] Systolic blood 164 mm[Hg] 164 mm[Hg] [facility] Body temperature 36.792977 Kaylie 36.289472 Kaylie [facility] Respiratory rate 18 /min 18 /min [facility] Oxygen 98 % 98 % [place] saturation in Medical Arterial blood Center by Pulse oximetry Heart rate 77 /min 77 /min [facility] Diastolic blood 75 mm[Hg] 75 mm[Hg] [facility] Center Systolic blood 136 mm[Hg] 136 mm[Hg] [facility] [place] Body temperature 36.889051 Kaylie 36.239926 Kaylie [facility] Respiratory rate 18 /min 18 /min [facility] Oxygen 98 % 98 % [place] saturation in Medical Arterial blood Center by Pulse oximetry Heart rate 84 /min 84 /min [facility] Diastolic blood 79 mm[Hg] 79 mm[Hg] [facility] Systolic blood 142 mm[Hg] 142 mm[Hg] [facility] [place] Body temperature 36.059908 Kaylie 36.327607 Kaylie [facility] Respiratory rate 19 /min 19 /min [facility] Oxygen 99 % 99 % [place] saturation in Medical Arterial blood Center by Pulse oximetry Heart rate 89 /min 89 /min [facility] Diastolic blood 87 mm[Hg] 87 mm[Hg] [facility] Systolic blood 155 mm[Hg] 155 mm[Hg] [facility] [place] Body temperature 36.559988 Kaylie 36.208666 Kaylie [facility] Respiratory rate 18 /min 18 /min [facility] Oxygen 99 % 99 % [place] saturation in Medical Arterial blood Center by Pulse oximetry Heart rate 100 /min 100 /min [facility] Diastolic blood 98 mm[Hg] 98 mm[Hg] [facility] Systolic blood 145 mm[Hg] 145 mm[Hg] [facility] Body temperature 37.783929 Kaylie 37.695785 Kaylie [facility] Respiratory rate 20 /min 20 /min [facility] Oxygen 95 % 95 % [place] saturation in Medical Arterial blood Center by Pulse oximetry Heart rate 88 /min 88 /min [facility] Diastolic blood 77 mm[Hg] 77 mm[Hg] [facility] Systolic blood 135 mm[Hg] 135 mm[Hg] [facility] Body weight 79.571205 kg 79.231274 kg [facility] Body temperature 36.734257 Kaylie 36.874512 Kaylie [facility] Respiratory rate 18 /min 18 /min [facility] Oxygen 99 % 99 % [place] saturation in Medical Arterial blood Center by Pulse oximetry Heart rate 78 /min 78 /min [facility] Body height 172.240103 cm 172.114326 cm [facility] Diastolic blood 70 mm[Hg] 70 mm[Hg] [facility] Center Systolic blood 130 mm[Hg] 130 mm[Hg] [facility] Body mass index 26.6 kg/m2 26.6 kg/m2 [facility] (BMI) [Ratio] Medical Center Body temperature 37.109689 Kaylie 37.065387 Kaylie [facility] Respiratory rate 18 /min 18 /min [facility] Oxygen 98 % 98 % [place] saturation in Medical Arterial blood Center by Pulse oximetry Heart rate 103 /min 103 /min [facility] Diastolic blood 88 mm[Hg] 88 mm[Hg] [facility] Center Systolic blood 142 mm[Hg] 142 mm[Hg] [facility] Body temperature 36.977010 Kaylie 36.628088 Kaylie [facility] Respiratory rate 18 /min 18 /min [facility] Oxygen 97 % 97 % [place] saturation in Medical Arterial blood Center by Pulse oximetry Heart rate 77 /min 77 /min [facility] Diastolic blood 66 mm[Hg] 66 mm[Hg] [facility] Systolic blood 140 mm[Hg] 140 mm[Hg] [facility] Body temperature 36.982391 Kaylie 36.251873 Kaylie [facility] Respiratory rate 18 /min 18 /min [facility] Oxygen 96 % 96 % [place] saturation in Medical Arterial blood Center by Pulse oximetry Heart rate 88 /min 88 /min [facility] Diastolic blood 75 mm[Hg] 75 mm[Hg] [facility] Center Systolic blood 119 mm[Hg] 119 mm[Hg] [facility] Body temperature 36.419366 Kaylie 36.151136 Kaylie [facility] Respiratory rate 19 /min 19 /min [facility] Oxygen 97 % 97 % [place] saturation in Medical Arterial blood Center by Pulse oximetry Heart rate 101 /min 101 /min [facility] Diastolic blood 67 mm[Hg] 67 mm[Hg] [facility] Center Systolic blood 108 mm[Hg] 108 mm[Hg] [facility] [place] Body temperature 36.169037 Kaylie 36.476205 Kaylie [facility] Respiratory rate 17 /min 17 /min [facility] Oxygen 94 % 94 % [place] saturation in Medical Arterial blood Center by Pulse oximetry Heart rate 87 /min 87 /min [facility] Diastolic blood 81 mm[Hg] 81 mm[Hg] [facility] [place] Systolic blood 120 mm[Hg] 120 mm[Hg] [facility] [place] Body temperature 36.142251 Kaylie 36.526869 Kaylie [facility] Respiratory rate 17 /min 17 /min [facility] Oxygen 97 % 97 % [place] saturation in Medical Arterial blood Center by Pulse oximetry Heart rate 70 /min 70 /min [facility] Diastolic blood 66 mm[Hg] 66 mm[Hg] [facility] [place] Systolic blood 139 mm[Hg] 139 mm[Hg] [facility] Body temperature 36.668894 Kaylie 36.656894 Kaylie [facility] Respiratory rate 17 /min 17 /min [facility] Oxygen 95 % 95 % [place] saturation in Medical Arterial blood Center by Pulse oximetry Heart rate 69 /min 69 /min [facility] Diastolic blood 76 mm[Hg] 76 mm[Hg] [facility] Systolic blood 122 mm[Hg] 122 mm[Hg] [facility] Body temperature 36.534418 Kaylie 36.575164 Kaylie [facility] Respiratory rate 17 /min 17 /min [facility] Oxygen 98 % 98 % [place] saturation in Medical Arterial blood Center by Pulse oximetry Heart rate 73 /min 73 /min [facility] Diastolic blood 69 mm[Hg] 69 mm[Hg] [facility] Systolic blood 133 mm[Hg] 133 mm[Hg] [facility] Diastolic blood 84 mmHg 84 mmHg [facility] Systolic blood 150 mmHg 150 mmHg [facility] Respiratory rate 18 bpm 18 bpm [facility] Heart rate 86 bpm 86 bpm [facility] Body temperature 97.8 Fahrenheit 97.8 Fahrenhei t [facility] Diastolic blood 79 mmHg 79 mmHg [facility] Systolic blood 135 mmHg 135 mmHg [facility] Respiratory rate 18 bpm 18 bpm [facility] Heart rate 92 bpm 92 bpm [facility] Body temperature 97.5 Fahrenheit 97.5 [place] t [facility] Diastolic blood 77 mmHg 77 mmHg [facility] Systolic blood 124 mmHg 124 mmHg [facility] Respiratory rate 18 bpm 18 bpm [facility] Heart rate 90 bpm 90 bpm [facility] Body temperature 98.0 [place]ahren[place] 98.0 [place] t [facility] Diastolic blood 89 mmHg 89 mmHg [facility] Systolic blood 149 mmHg 149 mmHg [facility] Respiratory rate 18 bpm 18 bpm [facility] Heart rate 105 bpm 105 bpm [facility] Body temperature 98.2 Fahrenheit 98.2 [place] t [facility] Body temperature 97.3 Fahrenheit 97.3 F[place]hei t [facility] Body weight 233 lbs 233 lbs [facility] Diastolic blood 87 mmHg 87 mmHg [facility] Systolic blood 140 mmHg 140 mmHg [facility] Respiratory rate 18 bpm 18 bpm [facility] Heart rate 103 bpm 103 bpm [facility] Body temperature 98.1 Fahrenheit 98.1 Fahrenh t [facility] Body temperature 97.4 Fahrenheit 97.4 Fahrenhei t [facility] Body temperature 36.144767 Kaylie 36.457127 Kaylie [facility] Respiratory rate 17 /min 17 /min [facility] Oxygen 95 % 95 % [facility] saturation in Medical Arterial blood Center by Pulse oximetry Heart rate 79 /min 79 /min [facility] Diastolic blood 71 mm[Hg] 71 mm[Hg] [facility] Systolic blood 122 mm[Hg] 122 mm[Hg] [facility] Body temperature 36.901803 Kaylie 36.661360 Kaylie [facility] Respiratory rate 17 /min 17 /min [facility] Oxygen 98 % 98 % [facility] saturation in Medical Arterial blood Center by Pulse oximetry Heart rate 79 /min 79 /min [facility] Diastolic blood 69 mm[Hg] 69 mm[Hg] [facility] pressure [facility] Center Systolic blood 133 mm[Hg] 133 mm[Hg] [facility] Body temperature 37.707296 Kaylie 37.274427 Kaylie [facility] Respiratory rate 16 /min 16 /min [facility] Oxygen 97 % 97 % [place] saturation in Medical Arterial blood Center by Pulse oximetry Heart rate 96 /min 96 /min [facility] Diastolic blood 91 mm[Hg] 91 mm[Hg] [facility] pressure [facility] Center Systolic blood 154 mm[Hg] 154 mm[Hg] [facility] Body temperature 37.997267 Kaylie 37.565902 Kaylie [facility] Respiratory rate 18 /min 18 /min [facility] Heart rate 102 /min 102 /min [facility] Diastolic blood 107 mm[Hg] 107 mm[Hg] [facility] Systolic blood 162 mm[Hg] 162 mm[Hg] [facility] [place] Body temperature 36.477460 Kaylie 36.335830 Kaylie [facility] Respiratory rate 18 /min 18 /min [facility] Oxygen 97 % 97 % [place] saturation in Medical Arterial blood Center by Pulse oximetry Heart rate 101 /min 101 /min [facility] Diastolic blood 95 mm[Hg] 95 mm[Hg] [facility] Systolic blood 159 mm[Hg] 159 mm[Hg] [facility] Body temperature 36.746596 Kaylie 36.306797 Kaylie [facility] Respiratory rate 18 /min 18 /min [facility] Oxygen 96 % 96 % [place] saturation in Medical Arterial blood Center by Pulse oximetry Heart rate 93 /min 93 /min [facility] Diastolic blood 61 mm[Hg] 61 mm[Hg] [facility] pressure [facility] Center Systolic blood 111 mm[Hg] 111 mm[Hg] [facility] Body temperature 36.941146 Kaylie 36.312798 Kaylie [facility] Respiratory rate 16 /min 16 /min [facility] Oxygen 98 % 98 % [place] saturation in Medical Arterial blood Center by Pulse oximetry Heart rate 78 /min 78 /min [facility] Diastolic blood 73 mm[Hg] 73 mm[Hg] [facility] Systolic blood 124 mm[Hg] 124 mm[Hg] [facility] Body temperature 36.663274 Kaylie 36.473166 Kaylie [facility] Respiratory rate 16 /min 16 /min [facility] Oxygen 96 % 96 % [place] saturation in Medical Arterial blood Center by Pulse oximetry Heart rate 94 /min 94 /min [facility] Diastolic blood 71 mm[Hg] 71 mm[Hg] [facility] pressure [facility] Center Systolic blood 131 mm[Hg] 131 mm[Hg] [facility] Body temperature 36.459491 Kaylie 36.515927 Kaylie [facility] Respiratory rate 15 /min 15 /min [facility] Oxygen 98 % 98 % [place] saturation in Medical Arterial blood Center by Pulse oximetry Heart rate 100 /min 100 /min [facility] Diastolic blood 73 mm[Hg] 73 mm[Hg] [facility] Systolic blood 129 mm[Hg] 129 mm[Hg] [facility] Body weight 77.287737 kg 77.028962 kg [facility] [place] Body temperature 36.930256 Kaylie 36.245964 Kaylie [facility] Respiratory rate 18 /min 18 /min [facility] Oxygen 96 % 96 % [place] saturation in Medical Arterial blood Center by Pulse oximetry Heart rate 99 /min 99 /min [facility] Body height 167.695956 cm 167.532755 cm [facility] Diastolic blood 74 mm[Hg] 74 mm[Hg] [facility] Systolic blood 128 mm[Hg] 128 mm[Hg] [facility] Body mass index 27.4 kg/m2 27.4 kg/m2 [facility] (BMI) [Ratio] Medical Center Body temperature 36.517284 Kaylie 36.387565 Kaylie [facility] Respiratory rate 17 /min 17 /min [facility] Oxygen 99 % 99 % [place] saturation in [facility] Ar[facility] blood Center by Pulse oximetry Heart rate 81 /min 81 /min [facility] Diastolic blood 69 mm[Hg] 69 mm[Hg] [facility] Systolic blood 118 mm[Hg] 118 mm[Hg] [facility] Body weight 113.994904 kg 113.741059 kg [facility] Body temperature 37.340825 Kaylie 37.358201 Kaylie [facility] Respiratory rate 19 /min 19 /min [facility] Oxygen 94 % 94 % [place] saturation in Medical Arterial blood Center by Pulse oximetry Heart rate 102 /min 102 /min [facility] Body height 172.509319 cm 172.108857 cm [facility] Diastolic blood 78 mm[Hg] 78 mm[Hg] [facility] Systolic blood 138 mm[Hg] 138 mm[Hg] [facility] Body mass index 38.0 kg/m2 38.0 kg/m2 [facility] (BMI) [Ratio] Medical Center Body temperature 36.034169 Kaylie 36.665575 Kaylie [facility] Respiratory rate 18 /min 18 /min [facility] Oxygen 98 % 98 % [place] saturation in Medical Arterial blood Center by Pulse oximetry Heart rate 104 /min 104 /min [facility] Diastolic blood 50 mm[Hg] 50 mm[Hg] [facility] Systolic blood 91 mm[Hg] 91 mm[Hg] [facility] Body temperature 36.308133 Kaylie 36.191354 Kaylie [facility] Respiratory rate 18 /min 18 /min [facility] Oxygen 91 % 91 % [place] saturation in Medical Arterial blood Center by Pulse oximetry Heart rate 97 /min 97 /min [facility] Diastolic blood 75 mm[Hg] 75 mm[Hg] [facility] Center Systolic blood 126 mm[Hg] 126 mm[Hg] [facility] Body temperature 36.323753 Kaylie 36.316414 Kaylie [facility] Respiratory rate 18 /min 18 /min [facility] Oxygen 100 % 100 % [place] saturation in Medical Arterial blood Center by Pulse oximetry Heart rate 95 /min 95 /min [facility] Diastolic blood 57 mm[Hg] 57 mm[Hg] [facility] Systolic blood 106 mm[Hg] 106 mm[Hg] [facility] Body weight 83.989776 kg 83.073470 kg [facility] Body temperature 36.564887 Kaylie 36.634298 Kaylie [facility] Respiratory rate 19 /min 19 /min [facility] Oxygen 97 % 97 % [place] saturation in Medical Arterial blood Center by Pulse oximetry Heart rate 95 /min 95 /min [facility] Body height 175.280830 cm 175.417294 cm [facility] Diastolic blood 58 mm[Hg] 58 mm[Hg] [facility] Systolic blood 107 mm[Hg] 107 mm[Hg] [facility] Center Body mass index 27.3 kg/m2 27.3 kg/m2 [facility] (BMI) [Ratio] Medical Center Body temperature 36.280614 Kaylie 36.822405 Kaylie [facility] Respiratory rate 16 /min 16 /min [facility] Oxygen 98 % 98 % [place] saturation in Medical Arterial blood Center by Pulse oximetry Heart rate 84 /min 84 /min [facility] Diastolic blood 74 mm[Hg] 74 mm[Hg] [facility] Systolic blood 141 mm[Hg] 141 mm[Hg] [facility] Body temperature 37.842497 Kaylie 37.268817 Kaylie [facility] Respiratory rate 18 /min 18 /min [facility] Oxygen 96 % 96 % [place] saturation in Medical Arterial blood Center by Pulse oximetry Heart rate 90 /min 90 /min [facility] Diastolic blood 60 mm[Hg] 60 mm[Hg] [facility] Center Systolic blood 103 mm[Hg] 103 mm[Hg] [facility] Body temperature 37.079521 Kaylie 37.230061 Kaylie [facility] Respiratory rate 17 /min 17 /min [facility] Oxygen 99 % 99 % [place] saturation in Medical Arterial blood Center by Pulse oximetry Heart rate 88 /min 88 /min [facility] Diastolic blood 86 mm[Hg] 86 mm[Hg] [facility] Center Systolic blood 138 mm[Hg] 138 mm[Hg] [facility] Body temperature 36.021527 Kaylie 36.174312 Kaylie [facility] Respiratory rate 16 /min 16 /min [facility] Oxygen 98 % 98 % [place] saturation in Medical Arterial blood Center by Pulse oximetry Heart rate 78 /min 78 /min [facility] Diastolic blood 91 mm[Hg] 91 mm[Hg] [facility] pressure Medical Center Systolic blood 145 mm[Hg] 145 mm[Hg] [facility] Body temperature 36.666780 Kaylie 36.372941 Kaylie [facility] Respiratory rate 16 /min 16 /min [facility] Oxygen 98 % 98 % [place] saturation in Medical Arterial blood Center by Pulse oximetry Heart rate 75 /min 75 /min [facility] Diastolic blood 84 mm[Hg] 84 mm[Hg] [facility] pressure Medical Center Systolic blood 151 mm[Hg] 151 mm[Hg] [facility] [place] Body temperature 36.723884 Kaylie 36.157299 Kaylie [facility] Respiratory rate 16 /min 16 /min [facility] Oxygen 98 % 98 % [place] saturation in Medical Arterial blood Center by Pulse oximetry Heart rate 74 /min 74 /min [facility] Diastolic blood 87 mm[Hg] 87 mm[Hg] [facility] Systolic blood 148 mm[Hg] 148 mm[Hg] [facility] [place] Body temperature 36.012540 Kaylie 36.733203 Kaylie [facility] Respiratory rate 16 /min 16 /min [facility] Oxygen 96 % 96 % [place] saturation in Medical Arterial blood Center by Pulse oximetry Heart rate 79 /min 79 /min [facility] Diastolic blood 88 mm[Hg] 88 mm[Hg] [facility] pressure Medical Center Systolic blood 151 mm[Hg] 151 mm[Hg] [facility] Body temperature 37.784486 Kaylie 37.043240 Kaylie [facility] Respiratory rate 16 /min 16 /min [facility] Oxygen 98 % 98 % [place] saturation in Medical Arterial blood Center by Pulse oximetry Heart rate 86 /min 86 /min [facility] Diastolic blood 94 mm[Hg] 94 mm[Hg] [facility] pressure Medical Center Systolic blood 145 mm[Hg] 145 mm[Hg] [facility] Body temperature 36.561579 Kaylie 36.752326 Kaylie [facility] Respiratory rate 19 /min 19 /min [facility] Oxygen 97 % 97 % [place] saturation in Medical Arterial blood Center by Pulse oximetry Heart rate 92 /min 92 /min [facility] Diastolic blood 88 mm[Hg] 88 mm[Hg] [facility] pressure Medical Center Systolic blood 148 mm[Hg] 148 mm[Hg] [facility] Body temperature 36.325495 Kaylie 36.209783 Kaylie [facility] Respiratory rate 17 /min 17 /min [facility] Oxygen 97 % 97 % [place] saturation in Medical Arterial blood Center by Pulse oximetry Heart rate 71 /min 71 /min [facility] Diastolic blood 87 mm[Hg] 87 mm[Hg] [facility] pressure Medical Center Systolic blood 139 mm[Hg] 139 mm[Hg] [facility] [place] Body temperature 36.206401 Kaylie 36.653358 Kaylie [facility] Respiratory rate 18 /min 18 /min [facility] Oxygen 97 % 97 % [place] saturation in Medical Arterial blood Center by Pulse oximetry Heart rate 84 /min 84 /min [facility] Diastolic blood 77 mm[Hg] 77 mm[Hg] [facility] pressure Medical Center Systolic blood 132 mm[Hg] 132 mm[Hg] [facility] Diastolic blood 68 mm[Hg] 68 mm[Hg] [facility] pressure Medical Center Systolic blood 119 mm[Hg] 119 mm[Hg] [facility] [place] Body temperature 36.184432 Kaylie 36.588968 Kaylie [facility] Respiratory rate 17 /min 17 /min [facility] Oxygen 98 % 98 % [place] saturation in Medical Arterial blood Center by Pulse oximetry Heart rate 88 /min 88 /min [facility] Body temperature 36.521863 Kaylie 36.102304 Kaylie [facility] Respiratory rate 17 /min 17 /min [facility] Oxygen 97 % 97 % [place] saturation in Medical Arterial blood Center by Pulse oximetry Heart rate 81 /min 81 /min [facility] Diastolic blood 72 mm[Hg] 72 mm[Hg] [facility] pressure Medical Center Systolic blood 131 mm[Hg] 131 mm[Hg] [facility] Body weight 90.786516 kg 90.341213 kg [facility] Body temperature 36.970065 Kaylie 36.808974 Kaylie [facility] Respiratory rate 16 /min 16 /min [facility] Oxygen 9 % 9 % [place] saturation in Medical Arterial blood Center by Pulse oximetry Heart rate 80 /min 80 /min [facility] Body height 177.185487 cm 177.083649 cm [facility] Diastolic blood 95 mm[Hg] 95 mm[Hg] [facility] Systolic blood 152 mm[Hg] 152 mm[Hg] [facility] Center Body mass index 28.6 kg/m2 28.6 kg/m2 [facility] (BMI) [Ratio] Medical Center Body temperature 36.515944 Kaylie 36.409925 Kaylie [facility] Respiratory rate 18 /min 18 /min [facility] Oxygen 100 % 100 % [place] saturation in Medical Arterial blood Center by Pulse oximetry Heart rate 81 /min 81 /min [facility] Diastolic blood 70 mm[Hg] 70 mm[Hg] [facility] Center Systolic blood 119 mm[Hg] 119 mm[Hg] [facility] Body temperature 36.811551 Kaylie 36.204586 Kaylie [facility] Respiratory rate 18 /min 18 /min [facility] Oxygen 97 % 97 % [place] saturation in Medical Arterial blood Center by Pulse oximetry Heart rate 86 /min 86 /min [facility] Diastolic blood 76 mm[Hg] 76 mm[Hg] [facility] Center Systolic blood 119 mm[Hg] 119 mm[Hg] [facility] Body temperature 36.264649 Kaylie 36.380709 Kaylie [facility] Respiratory rate 18 /min 18 /min [facility] Oxygen 97 % 97 % [place] saturation in Medical Arterial blood Center by Pulse oximetry Heart rate 94 /min 94 /min [facility] Diastolic blood 87 mm[Hg] 87 mm[Hg] [facility] Systolic blood 140 mm[Hg] 140 mm[Hg] [facility] Body temperature 36.280082 Kaylie 36.493560 Kaylie [facility] Respiratory rate 19 /min 19 /min [facility] Oxygen 100 % 100 % [place] saturation in Medical Arterial blood Center by Pulse oximetry Heart rate 83 /min 83 /min [facility] Diastolic blood 71 mm[Hg] 71 mm[Hg] [facility] pressure Medical Center Systolic blood 126 mm[Hg] 126 mm[Hg] [facility] Body temperature 36.901030 Kaylie 36.865192 Kaylie [facility] Respiratory rate 18 /min 18 /min [facility] Oxygen 99 % 99 % [place] saturation in Medical Arterial blood Center by Pulse oximetry Heart rate 79 /min 79 /min [facility] Diastolic blood 77 mm[Hg] 77 mm[Hg] [facility] pressure Medical Center Systolic blood 126 mm[Hg] 126 mm[Hg] [facility] pressure Medical Center Body weight 125.642948 kg 125.480415 kg [facility] Body temperature 36.266566 Kaylie 36.114435 Kaylie [facility] Respiratory rate 18 /min 18 /min [facility] Oxygen 98 % 98 % [place] saturation in Medical Arterial blood Center by Pulse oximetry Heart rate 98 /min 98 /min [facility] Body height 177.946325 cm 177.984079 cm [facility] Diastolic blood 78 mm[Hg] 78 mm[Hg] [facility] pressure Medical Center Systolic blood 110 mm[Hg] 110 mm[Hg] [facility] Body mass index 39.5 kg/m2 39.5 kg/m2 [facility] (BMI) [Ratio] Medical Center Body temperature 36.533037 Kaylie 36.138394 Kaylie [facility] Respiratory rate 17 /min 17 /min [facility] Oxygen 96 % 96 % [place] saturation in Medical Arterial blood Center by Pulse oximetry Heart rate 88 /min 88 /min [facility] Diastolic blood 75 mm[Hg] 75 mm[Hg] [facility] pressure [facility] Center Systolic blood 104 mm[Hg] 104 mm[Hg] [facility] Body weight 110.843527 kg 110.762164 kg [facility] Body temperature 36.720655 Kaylie 36.387948 Kalyie [facility] Respiratory rate 18 /min 18 /min [facility] Oxygen 98 % 98 % [place] saturation in Medical Arterial blood Center by Pulse oximetry Heart rate 78 /min 78 /min [facility] Body height 187.722368 cm 187.398919 cm [facility] Diastolic blood 78 mm[Hg] 78 mm[Hg] [facility] pressure Medical Center Systolic blood 148 mm[Hg] 148 mm[Hg] [facility] Center Body mass index 31.1 kg/m2 31.1 kg/m2 [facility] (BMI) [Ratio] Medical Center Body temperature 36.856528 Kaylie 36.406623 Kaylie [facility] Respiratory rate 17 /min 17 /min [facility] Oxygen 98 % 98 % [place] saturation in Medical Arterial blood Center by Pulse oximetry Heart rate 75 /min 75 /min [facility] Diastolic blood 68 mm[Hg] 68 mm[Hg] [facility] Systolic blood 129 mm[Hg] 129 mm[Hg] [facility] Oxygen 98 % 98 % [place] saturation in Medical Arterial blood Center by Pulse oximetry Heart rate 75 /min 75 /min [facility] Diastolic blood 68 mm[Hg] 68 mm[Hg] [facility] pressure Medical Center Systolic blood 133 mm[Hg] 133 mm[Hg] [facility] Body temperature 36.671651 Kaylie 36.634472 Kaylie [facility] Respiratory rate 17 /min 17 /min [facility] Body temperature 36.826229 Kaylie 36.053229 Kaylie [facility] Respiratory rate 17 /min 17 /min [facility] Oxygen 98 % 98 % [place] saturation in Medical Arterial blood Center by Pulse oximetry Heart rate 82 /min 82 /min [facility] Diastolic blood 87 mm[Hg] 87 mm[Hg] [facility] pressure [facility] Center Systolic blood 142 mm[Hg] 142 mm[Hg] [facility] Body temperature 36.699739 Kaylie 36.137323 Kaylie [facility] Oxygen 97 % 97 % [place] saturation in Medical Arterial blood Center by Pulse oximetry Heart rate 87 /min 87 /min [facility] Diastolic blood 81 mm[Hg] 81 mm[Hg] [facility] Center Systolic blood 150 mm[Hg] 150 mm[Hg] [facility] Body temperature 37.738026 Kaylie 37.213104 Kaylie [facility] Respiratory rate 19 /min 19 /min [facility] Oxygen 96 % 96 % [place] saturation in Medical Arterial blood Center by Pulse oximetry Heart rate 89 /min 89 /min [facility] Diastolic blood 91 mm[Hg] 91 mm[Hg] [facility] Systolic blood 158 mm[Hg] 158 mm[Hg] [facility] Body weight 104.873530 kg 104.066808 kg [facility] Body temperature 37.983324 Kaylie 37.471580 Kaylie [facility] Respiratory rate 17 /min 17 /min [facility] Oxygen 96 % 96 % [facility] saturation in Medical Arterial blood Center by Pulse oximetry Heart rate 92 /min 92 /min [facility] Body height 177.181318 cm 177.917346 cm [facility] Diastolic blood 101 mm[Hg] 101 mm[Hg] [facility] Center Systolic blood 152 mm[Hg] 152 mm[Hg] [facility] Body mass index 33.0 kg/m2 33.0 kg/m2 [facility] (BMI) [Ratio] Medical Center Body weight 110.682339 kg 110.885492 kg [facility] Body temperature 36.802349 Kaylie 36.039323 Kaylie [facility] Respiratory rate 18 /min 18 /min [facility] Oxygen 98 % 98 % [place] saturation in Medical Arterial blood Center by Pulse oximetry Heart rate 78 /min 78 /min [facility] Body height 185.327101 cm 185.050832 cm [facility] Diastolic blood 78 mm[Hg] 78 mm[Hg] [facility] Systolic blood 142 mm[Hg] 142 mm[Hg] [facility] Body mass index 31.9 kg/m2 31.9 kg/m2 [facility] (BMI) [Ratio] Medical Center Body temperature 36.883470 Kaylie 36.449493 Kaylie [facility] Respiratory rate 18 /min 18 /min [facility] Oxygen 95 % 95 % [place] saturation in Medical Arterial blood Center by Pulse oximetry Heart rate 91 /min 91 /min [facility] Diastolic blood 74 mm[Hg] 74 mm[Hg] [facility] pressure [facility] Center Systolic blood 144 mm[Hg] 144 mm[Hg] [facility] Body temperature 37.011340 Kaylie 37.693686 Kaylie [facility] Respiratory rate 20 /min 20 /min [facility] Oxygen 96 % 96 % [place] saturation in Medical Arterial blood Center by Pulse oximetry Heart rate 89 /min 89 /min [facility] Diastolic blood 79 mm[Hg] 79 mm[Hg] [facility] pressure [facility] Center Systolic blood 140 mm[Hg] 140 mm[Hg] [facility] pressure Medical Center Body weight 90.926670 kg 90.759069 kg [facility] Body temperature 36.787966 Kaylie 36.964256 Kaylie [facility] Respiratory rate 18 /min 18 /min [facility] Oxygen 99 % 99 % [place] saturation in Medical Arterial blood Center by Pulse oximetry Heart rate 97 /min 97 /min [facility] Body height 177.810753 cm 177.509178 cm [facility] Diastolic blood 86 mm[Hg] 86 mm[Hg] [facility] pressure Medical Center Systolic blood 157 mm[Hg] 157 mm[Hg] [facility] Body mass index 28.6 kg/m2 28.6 kg/m2 [facility] (BMI) [Ratio] Medical Center Body temperature 36.078761 Kaylie 36.033009 Kaylie [facility] Respiratory rate 19 /min 19 /min [facility] Oxygen 97 % 97 % [place] saturation in Medical Arterial blood Center by Pulse oximetry Heart rate 78 /min 78 /min [facility] Diastolic blood 78 mm[Hg] 78 mm[Hg] [facility] pressure [facility] Center Systolic blood 132 mm[Hg] 132 mm[Hg] [facility] Body temperature 37.807763 Kaylie 37.274109 Kaylie [facility] Respiratory rate 18 /min 18 /min [facility] Oxygen 96 % 96 % [place] saturation in Medical Arterial blood Center by Pulse oximetry Heart rate 92 /min 92 /min [facility] Diastolic blood 64 mm[Hg] 64 mm[Hg] [facility] pressure [facility] Center Systolic blood 117 mm[Hg] 117 mm[Hg] [facility] [place] Body temperature 37.504273 Kaylie 37.708214 Kaylie [facility] Respiratory rate 19 /min 19 /min [facility] Oxygen 98 % 98 % [place] saturation in Medical Arterial blood Center by Pulse oximetry Heart rate 96 /min 96 /min [facility] Diastolic blood 98 mm[Hg] 98 mm[Hg] [facility] Systolic blood 148 mm[Hg] 148 mm[Hg] [facility] Body temperature 36.596123 Kaylie 36.225928 Kaylie [facility] Respiratory rate 18 /min 18 /min [facility] Oxygen 98 % 98 % [place] saturation in Medical Arterial blood Center by Pulse oximetry Heart rate 88 /min 88 /min [facility] Diastolic blood 78 mm[Hg] 78 mm[Hg] [facility] pressure [facility] Center Systolic blood 134 mm[Hg] 134 mm[Hg] [facility] [place] Body temperature 36.178754 Kaylie 36.057890 Kaylie [facility] Respiratory rate 18 /min 18 /min [facility] Oxygen 90 % 90 % [place] saturation in Medical Arterial blood Center by Pulse oximetry Heart rate 76 /min 76 /min [facility] Diastolic blood 76 mm[Hg] 76 mm[Hg] [facility] Systolic blood 134 mm[Hg] 134 mm[Hg] [facility] Oxygen 95 % 95 % [place] saturation in Medical Arterial blood Center by Pulse oximetry Heart rate 74 /min 74 /min [facility] Diastolic blood 81 mm[Hg] 81 mm[Hg] [facility] pressure [facility] Center Systolic blood 127 mm[Hg] 127 mm[Hg] [facility] Body temperature 36.322762 Kaylie 36.504415 Kaylie [facility] Respiratory rate 16 /min 16 /min [facility] Body temperature 36.151985 Kaylie 36.497270 Kaylie [facility] Oxygen 95 % 95 % [place] saturation in Medical Arterial blood Center by Pulse oximetry Heart rate 79 /min 79 /min [facility] Diastolic blood 74 mm[Hg] 74 mm[Hg] [facility] pressure [facility] Center Systolic blood 131 mm[Hg] 131 mm[Hg] [facility] [place] Body temperature 37.368016 Kaylie 37.717841 Kaylie [facility] Respiratory rate 16 /min 16 /min [facility] Oxygen 98 % 98 % [place] saturation in Medical Arterial blood Center by Pulse oximetry Heart rate 84 /min 84 /min [facility] Diastolic blood 74 mm[Hg] 74 mm[Hg] [facility] pressure [facility] Center Systolic blood 131 mm[Hg] 131 mm[Hg] [facility] Body temperature 37.993689 Kaylie 37.392773 Kaylie [facility] Respiratory rate 17 /min 17 /min [facility] Oxygen 99 % 99 % [place] saturation in Medical Arterial blood Center by Pulse oximetry Heart rate 81 /min 81 /min [facility] Diastolic blood 78 mm[Hg] 78 mm[Hg] [facility] Systolic blood 127 mm[Hg] 127 mm[Hg] [facility] [place] Body weight 104.103387 kg 104.116474 kg [facility] Body temperature 36.906873 Kaylie 36.687508 Kaylie [facility] Respiratory rate 17 /min 17 /min [facility] Oxygen 98 % 98 % [place] saturation in Medical Arterial blood Center by Pulse oximetry Heart rate 101 /min 101 /min [facility] Body height 177.243634 cm 177.628353 cm [facility] Diastolic blood 94 mm[Hg] 94 mm[Hg] [facility] Systolic blood 163 mm[Hg] 163 mm[Hg] [facility] Body mass index 33.0 kg/m2 33.0 kg/m2 [facility] (BMI) [Ratio] Medical Center Body temperature 36.845948 Kaylie 36.062515 Kaylie [facility] Respiratory rate 17 /min 17 /min [facility] Oxygen 98 % 98 % [place] saturation in Medical Arterial blood Center by Pulse oximetry Heart rate 72 /min 72 /min [facility] Diastolic blood 96 mm[Hg] 96 mm[Hg] [facility] Systolic blood 139 mm[Hg] 139 mm[Hg] [facility] Body temperature 36.199087 Kaylie 36.019168 Kaylie [facility] Respiratory rate 18 /min 18 /min [facility] Oxygen 97 % 97 % [place] saturation in Medical Arterial blood Center by Pulse oximetry Heart rate 66 /min 66 /min [facility] Diastolic blood 52 mm[Hg] 52 mm[Hg] [facility] Systolic blood 100 mm[Hg] 100 mm[Hg] [facility] Body weight 77.833469 kg 77.521970 kg [facility] [place] Body temperature 36.503721 Kaylie 36.869687 Kaylie [facility] Respiratory rate 18 /min 18 /min [facility] Oxygen 97 % 97 % [place] saturation in Medical Arterial blood Center by Pulse oximetry Heart rate 82 /min 82 /min [facility] Body height 167.807887 cm 167.516292 cm [facility] Diastolic blood 80 mm[Hg] 80 mm[Hg] [facility] Systolic blood 130 mm[Hg] 130 mm[Hg] [facility] Body mass index 27.4 kg/m2 27.4 kg/m2 [facility] (BMI) [Ratio] [facility] Center Body temperature 36.185349 Kaylie 36.723669 Kaylie [facility] Respiratory rate 17 /min 17 /min [facility] Oxygen 99 % 99 % [place] saturation in Medical Arterial blood Center by Pulse oximetry Heart rate 88 /min 88 /min [facility] Diastolic blood 77 mm[Hg] 77 mm[Hg] [facility] Systolic blood 128 mm[Hg] 128 mm[Hg] [facility] Body temperature 37.379127 Kaylie 37.833881 Kaylie [facility] Respiratory rate 18 /min 18 /min [facility] Oxygen 96 % 96 % [place] saturation in Medical Arterial blood Center by Pulse oximetry Heart rate 94 /min 94 /min [facility] Diastolic blood 80 mm[Hg] 80 mm[Hg] [facility] Systolic blood 122 mm[Hg] 122 mm[Hg] [facility] Body temperature 36.264805 Kaylie 36.530768 Kaylie [facility] Respiratory rate 20 /min 20 /min [facility] Oxygen 94 % 94 % [place] saturation in Medical Arterial blood Center by Pulse oximetry Heart rate 93 /min 93 /min [facility] Diastolic blood 61 mm[Hg] 61 mm[Hg] [facility] pressure Medical Center Systolic blood 122 mm[Hg] 122 mm[Hg] [facility] Body temperature 36.697228 Kaylie 36.504492 Kaylie [facility] Respiratory rate 17 /min 17 /min [facility] Oxygen 97 % 97 % [place] saturation in Medical Arterial blood Center by Pulse oximetry Heart rate 81 /min 81 /min [facility] Diastolic blood 82 mm[Hg] 82 mm[Hg] [facility] Systolic blood 142 mm[Hg] 142 mm[Hg] [facility] Body temperature 36.129129 Kaylie 36.300446 Kaylie [facility] Respiratory rate 18 /min 18 /min [facility] Oxygen 98 % 98 % [place] saturation in Medical Arterial blood Center by Pulse oximetry Heart rate 86 /min 86 /min [facility] Diastolic blood 78 mm[Hg] 78 mm[Hg] [facility] Systolic blood 122 mm[Hg] 122 mm[Hg] [facility] Body temperature 36.106801 Kaylie 36.296163 Kaylie [facility] Respiratory rate 17 /min 17 /min [facility] Oxygen 96 % 96 % [place] saturation in Medical Arterial blood Center by Pulse oximetry Heart rate 83 /min 83 /min [facility] Diastolic blood 71 mm[Hg] 71 mm[Hg] [facility] pressure Medical Center Systolic blood 125 mm[Hg] 125 mm[Hg] [facility] Body temperature 37.590158 Kaylie 37.967038 Kaylie [facility] Respiratory rate 16 /min 16 /min [facility] Oxygen 94 % 94 % [place] saturation in Medical Arterial blood Center by Pulse oximetry Heart rate 92 /min 92 /min [facility] Diastolic blood 72 mm[Hg] 72 mm[Hg] [facility] Systolic blood 142 mm[Hg] 142 mm[Hg] [facility] Body weight 90.669578 kg 90.163799 kg [facility] Body temperature 37.948798 Kaylie 37.109237 Kaylie [facility] Respiratory rate 18 /min 18 /min [facility] Oxygen 92 % 92 % [place] saturation in Medical Arterial blood Center by Pulse oximetry Heart rate 96 /min 96 /min [facility] Body height 177.592000 cm 177.820507 cm [facility] Diastolic blood 70 mm[Hg] 70 mm[Hg] [facility] pressure Medical Center Systolic blood 122 mm[Hg] 122 mm[Hg] [facility] Body mass index 28.6 kg/m2 28.6 kg/m2 [facility] (BMI) [Ratio] [facility] Center Body temperature 36.134060 Kaylie 36.527304 Kaylie [facility] Respiratory rate 17 /min 17 /min [facility] Oxygen 98 % 98 % [place] saturation in Medical Arterial blood Center by Pulse oximetry Heart rate 75 /min 75 /min [facility] Diastolic blood 65 mm[Hg] 65 mm[Hg] [facility] Systolic blood 133 mm[Hg] 133 mm[Hg] [facility] Body temperature 36.911036 Kaylie 36.506564 Kaylie [facility] Respiratory rate 18 /min 18 /min [facility] Oxygen 98 % 98 % [place] saturation in Medical Arterial blood Center by Pulse oximetry Heart rate 90 /min 90 /min [facility] Diastolic blood 72 mm[Hg] 72 mm[Hg] [facility] Systolic blood 127 mm[Hg] 127 mm[Hg] [facility] Body weight 75.750719 kg 75.276287 kg [facility] Body temperature 36.018011 Kaylie 36.733320 Kaylie [facility] Respiratory rate 19 /min 19 /min [facility] Oxygen 98 % 98 % [place] saturation in Medical Arterial blood Center by Pulse oximetry Heart rate 88 /min 88 /min [facility] Body height 170.774900 cm 170.196332 cm [facility] Diastolic blood 82 mm[Hg] 82 mm[Hg] [facility] pressure [facility] Center Systolic blood 140 mm[Hg] 140 mm[Hg] [facility] Body mass index 26.1 kg/m2 26.1 kg/m2 [facility] (BMI) [Ratio] [facility] Body temperature 35.874696 Kaylie 35.047159 Kaylie [facility] Respiratory rate 19 /min 19 /min [facility] Oxygen 96 % 96 % [place] saturation in Medical Arterial blood Center by Pulse oximetry Heart rate 89 /min 89 /min [facility] Diastolic blood 75 mm[Hg] 75 mm[Hg] [facility] pressure [facility] Center Systolic blood 102 mm[Hg] 102 mm[Hg] [facility] Body temperature 36.839802 Kaylie 36.284800 Kaylie [facility] Respiratory rate 18 /min 18 /min [facility] Oxygen 98 % 98 % [place] saturation in Medical Arterial blood Center by Pulse oximetry Heart rate 76 /min 76 /min [facility] Diastolic blood 76 mm[Hg] 76 mm[Hg] [facility] Systolic blood 112 mm[Hg] 112 mm[Hg] [facility] Center Body temperature 36.821581 Kaylie 36.992919 Kaylie [facility] Respiratory rate 18 /min 18 /min [facility] Oxygen 98 % 98 % [place] saturation in Medical Arterial blood Center by Pulse oximetry Heart rate 76 /min 76 /min [facility] Diastolic blood 76 mm[Hg] 76 mm[Hg] [facility] Systolic blood 112 mm[Hg] 112 mm[Hg] [facility] Body temperature 37.408879 Kaylie 37.781651 Kaylie [facility] Respiratory rate 18 /min 18 /min [facility] Oxygen 100 % 100 % [place] saturation in Medical Arterial blood Center by Pulse oximetry Heart rate 88 /min 88 /min [facility] Diastolic blood 78 mm[Hg] 78 mm[Hg] [facility] pressure [facility] Center Systolic blood 130 mm[Hg] 130 mm[Hg] [facility] Body temperature 36.437631 Kaylie 36.690354 Kaylie [facility] Respiratory rate 17 /min 17 /min [facility] Oxygen 100 % 100 % [place] saturation in Medical Arterial blood Center by Pulse oximetry Heart rate 81 /min 81 /min [facility] Diastolic blood 71 mm[Hg] 71 mm[Hg] [facility] Systolic blood 117 mm[Hg] 117 mm[Hg] [facility] Center Body weight 100.842460 kg 100.189889 kg [facility] Body temperature 36.248906 Kaylie 36.933321 Kaylie [facility] Respiratory rate 18 /min 18 /min [facility] Oxygen 94 % 94 % [place] saturation in Medical Arterial blood Center by Pulse oximetry Heart rate 97 /min 97 /min [facility] Body height 177.411944 cm 177.694604 cm [facility] Diastolic blood 72 mm[Hg] 72 mm[Hg] [facility] pressure [facility] Center Systolic blood 118 mm[Hg] 118 mm[Hg] [facility] Body mass index 31.6 kg/m2 31.6 kg/m2 [facility] (BMI) [Ratio] [facility] Center Body temperature 36.043606 Kaylie 36.582745 Kaylie [facility] Respiratory rate 17 /min 17 /min [facility] Oxygen 95 % 95 % [place] saturation in Medical Arterial blood Center by Pulse oximetry Heart rate 94 /min 94 /min [facility] Diastolic blood 89 mm[Hg] 89 mm[Hg] [facility] pressure [facility] Center Systolic blood 146 mm[Hg] 146 mm[Hg] [facility] Body temperature 36.508485 Kaylie 36.322479 Kaylie [facility] Respiratory rate 18 /min 18 /min [facility] Oxygen 97 % 97 % [place] saturation in Medical Arterial blood Center by Pulse oximetry Heart rate 94 /min 94 /min [facility] Diastolic blood 85 mm[Hg] 85 mm[Hg] [facility] Systolic blood 157 mm[Hg] 157 mm[Hg] [facility] Oxygen 98 % 98 % [place] saturation in Medical Arterial blood Center by Pulse oximetry Heart rate 84 /min 84 /min [facility] Body height 175.297280 cm 175.803752 cm [facility] Diastolic blood 84 mm[Hg] 84 mm[Hg] [facility] Systolic blood 142 mm[Hg] 142 mm[Hg] [facility] Center Body mass index 25.6 kg/m2 25.6 kg/m2 [facility] (BMI) [Ratio] [facility] Center Body weight 78.958101 kg 78.427633 kg [facility] Body temperature 36.516150 Kaylie 36.445531 Kaylie [facility] Respiratory rate 19 /min 19 /min [facility] Body temperature 36.032115 Kaylie 36.809814 Kaylie [facility] Respiratory rate 18 /min 18 /min [facility] Oxygen 96 % 96 % [facility] saturation in Medical Arterial blood Center by Pulse oximetry Heart rate 95 /min 95 /min [facility] Diastolic blood 80 mm[Hg] 80 mm[Hg] [facility] Center Systolic blood 182 mm[Hg] 182 mm[Hg] [facility] Center Body temperature 36.549572 Kaylie 36.866943 Kaylie [facility] Respiratory rate 18 /min 18 /min [facility] Oxygen 96 % 96 % [place] saturation in Medical Arterial blood Center by Pulse oximetry Heart rate 92 /min 92 /min [facility] Diastolic blood 89 mm[Hg] 89 mm[Hg] [facility] Center Systolic blood 139 mm[Hg] 139 mm[Hg] [facility] Body temperature 37.021169 Kaylie 37.992372 Kaylie [facility] Respiratory rate 18 /min 18 /min [facility] Oxygen 98 % 98 % [place] saturation in Medical Arterial blood Center by Pulse oximetry Heart rate 90 /min 90 /min [facility] Diastolic blood 80 mm[Hg] 80 mm[Hg] [facility] Center Systolic blood 138 mm[Hg] 138 mm[Hg] [facility] Body temperature 37.393164 Kaylie 37.348246 Kaylie [facility] Respiratory rate 18 /min 18 /min [facility] Oxygen 92 % 92 % [place] saturation in Medical Arterial blood Center by Pulse oximetry Heart rate 87 /min 87 /min [facility] Diastolic blood 66 mm[Hg] 66 mm[Hg] [facility] pressure [facility] Center Systolic blood 119 mm[Hg] 119 mm[Hg] [facility] Body temperature 36.873265 Kaylie 36.342400 Kaylie [facility] Respiratory rate 20 /min 20 /min [facility] Heart rate 94 /min 94 /min [facility] Diastolic blood 73 mm[Hg] 73 mm[Hg] [facility] pressure [facility] Center Systolic blood 119 mm[Hg] 119 mm[Hg] [facility] Body weight 88.884611 kg 88.500408 kg [facility] Body temperature 37.342576 Kaylie 37.958435 Kaylie [facility] Respiratory rate 18 /min 18 /min [facility] Oxygen 96 % 96 % [facility] saturation in Medical Arterial blood Center by Pulse oximetry Heart rate 90 /min 90 /min [facility] Body height 175.802090 cm 175.775644 cm [facility] Diastolic blood 72 mm[Hg] 72 mm[Hg] [facility] Systolic blood 135 mm[Hg] 135 mm[Hg] [facility] Body mass index 28.7 kg/m2 28.7 kg/m2 [facility] (BMI) [Ratio] Medical Center Body weight 104.864970 kg 104.467979 kg [facility] Body temperature 37.972883 Kaylie 37.546133 Kaylie [facility] Respiratory rate 20 /min 20 /min [facility] Oxygen 93 % 93 % [facility] saturation in Medical Arterial blood Center by Pulse oximetry Heart rate 93 /min 93 /min [facility] Body height 177.068492 cm 177.292855 cm [facility] Diastolic blood 73 mm[Hg] 73 mm[Hg] [facility] pressure [facility] Center Systolic blood 125 mm[Hg] 125 mm[Hg] [facility] Body mass index 33.0 kg/m2 33.0 kg/m2 [facility] (BMI) [Ratio] [facility] Body temperature 36.795501 Kaylie 36.989499 Kaylie [facility] Respiratory rate 18 /min 18 /min [facility] Oxygen 99 % 99 % [place] saturation in Medical Arterial blood Center by Pulse oximetry Heart rate 89 /min 89 /min [facility] Diastolic blood 75 mm[Hg] 75 mm[Hg] [facility] pressure [facility] Center Systolic blood 132 mm[Hg] 132 mm[Hg] [facility] Body temperature 36.015176 Kaylie 36.338287 Kaylie [facility] Respiratory rate 18 /min 18 /min [facility] Oxygen 99 % 99 % [place] saturation in Medical Arterial blood Center by Pulse oximetry Heart rate 78 /min 78 /min [facility] Diastolic blood 82 mm[Hg] 82 mm[Hg] [facility] pressure [facility] Center Systolic blood 133 mm[Hg] 133 mm[Hg] [facility] Body weight 104.586577 kg 104.048206 kg [facility] Body temperature 36.965272 Kaylie 36.081733 Kaylie [facility] Respiratory rate 20 /min 20 /min [facility] Oxygen 98 % 98 % [place] saturation in Medical Arterial blood Center by Pulse oximetry Heart rate 98 /min 98 /min [facility] Body height 177.477223 cm 177.554384 cm [facility] Diastolic blood 74 mm[Hg] 74 mm[Hg] [facility] pressure [facility] Center Systolic blood 118 mm[Hg] 118 mm[Hg] [facility] Center Body mass index 33.0 kg/m2 33.0 kg/m2 [facility] (BMI) [Ratio] [facility] Center Body temperature 36.381375 Kaylie 36.215101 Kaylie [facility] Respiratory rate 18 /min 18 /min [facility] Oxygen 96 % 96 % [place] saturation in Medical Arterial blood Center by Pulse oximetry Heart rate 89 /min 89 /min [facility] Diastolic blood 87 mm[Hg] 87 mm[Hg] [facility] pressure [facility] Center Systolic blood 132 mm[Hg] 132 mm[Hg] [facility] Body temperature 37.833600 Kaylie 37.673471 Kaylie [facility] Respiratory rate 18 /min 18 /min [facility] Oxygen 99 % 99 % [place] saturation in Medical Arterial blood Center by Pulse oximetry Heart rate 84 /min 84 /min [facility] Diastolic blood 72 mm[Hg] 72 mm[Hg] [facility] pressure [facility] Center Systolic blood 117 mm[Hg] 117 mm[Hg] [facility] Body temperature 36.124669 Kaylie 36.319019 Kaylie [facility] Respiratory rate 18 /min 18 /min [facility] Oxygen 98 % 98 % [place] saturation in Medical Arterial blood Center by Pulse oximetry Heart rate 88 /min 88 /min [facility] Diastolic blood 95 mm[Hg] 95 mm[Hg] [facility] pressure [facility] Center Systolic blood 135 mm[Hg] 135 mm[Hg] [facility] [place] Body temperature 36.051942 Kaylie 36.029020 Kaylie [facility] Respiratory rate 18 /min 18 /min [facility] Oxygen 96 % 96 % [place] saturation in Medical Arterial blood Center by Pulse oximetry Heart rate 98 /min 98 /min [facility] Diastolic blood 96 mm[Hg] 96 mm[Hg] [facility] Systolic blood 138 mm[Hg] 138 mm[Hg] [facility] [place] Body temperature 36.304594 Kaylie 36.934363 Kaylie [facility] Respiratory rate 18 /min 18 /min [facility] Oxygen 98 % 98 % [place] saturation in Medical Arterial blood Center by Pulse oximetry Heart rate 76 /min 76 /min [facility] Diastolic blood 76 mm[Hg] 76 mm[Hg] [facility] Systolic blood 132 mm[Hg] 132 mm[Hg] [facility] Body temperature 36.707931 Kaylie 36.764303 Kaylie [facility] Respiratory rate 18 /min 18 /min [facility] Oxygen 98 % 98 % [place] saturation in Medical Arterial blood Center by Pulse oximetry Heart rate 76 /min 76 /min [facility] Diastolic blood 78 mm[Hg] 78 mm[Hg] [facility] Systolic blood 112 mm[Hg] 112 mm[Hg] [facility] Heart rate 105 /min 105 /min [facility] Body height 177.644606 cm 177.033787 cm [facility] Diastolic blood 65 mm[Hg] 65 mm[Hg] [facility] pressure [facility] Center Systolic blood 124 mm[Hg] 124 mm[Hg] [facility] Body mass index 33.0 kg/m2 33.0 kg/m2 [facility] (BMI) [Ratio] Medical Center Body weight 104.292720 kg 104.942212 kg [facility] Body temperature 37.150605 Kaylie 37.159676 Kaylie [facility] Respiratory rate 20 /min 20 /min [facility] Oxygen 92 % 92 % [place] saturation in Medical Arterial blood Center by Pulse oximetry Body temperature 37.304060 Kaylie 37.758324 Kaylie [facility] Respiratory rate 18 /min 18 /min [facility] Oxygen 93 % 93 % [place] saturation in Medical Arterial blood Center by Pulse oximetry Heart rate 101 /min 101 /min [facility] Diastolic blood 68 mm[Hg] 68 mm[Hg] [facility] Systolic blood 108 mm[Hg] 108 mm[Hg] [facility] Body weight 79.481773 kg 79.880946 kg [facility] Body temperature 37.322543 Kaylie 37.626962 Kaylie [facility] Respiratory rate 18 /min 18 /min [facility] Oxygen 95 % 95 % [place] saturation in Medical Arterial blood Center by Pulse oximetry Heart rate 101 /min 101 /min [facility] Body height 175.415031 cm 175.039980 cm [facility] Diastolic blood 66 mm[Hg] 66 mm[Hg] [facility] pressure [facility] Center Systolic blood 98 mm[Hg] 98 mm[Hg] [facility] Body mass index 25.8 kg/m2 25.8 kg/m2 [facility] (BMI) [Ratio] Medical Center Body temperature 36.258173 Kaylie 36.293389 Kaylie [facility] Respiratory rate 18 /min 18 /min [facility] Oxygen 98 % 98 % [place] saturation in Medical Arterial blood Center by Pulse oximetry Heart rate 79 /min 79 /min [facility] Diastolic blood 69 mm[Hg] 69 mm[Hg] [facility] Systolic blood 103 mm[Hg] 103 mm[Hg] [facility] Body temperature 36.945354 Kaylie 36.728206 Kaylie [facility] Respiratory rate 18 /min 18 /min [facility] Oxygen 98 % 98 % [place] saturation in Medical Arterial blood Center by Pulse oximetry Heart rate 78 /min 78 /min [facility] Diastolic blood 76 mm[Hg] 76 mm[Hg] [facility] Systolic blood 122 mm[Hg] 122 mm[Hg] [facility] Body temperature 36.495459 Kaylie 36.847908 Kaylie [facility] Respiratory rate 19 /min 19 /min [facility] Oxygen 96 % 96 % [place] saturation in Medical Arterial blood Center by Pulse oximetry Heart rate 86 /min 86 /min [facility] Diastolic blood 63 mm[Hg] 63 mm[Hg] [facility] [place] Systolic blood 103 mm[Hg] 103 mm[Hg] [facility] Body temperature 36.420730 Kaylie 36.139020 Kaylie [facility] Respiratory rate 18 /min 18 /min [facility] Oxygen 98 % 98 % [place] saturation in Medical Arterial blood Center by Pulse oximetry Heart rate 84 /min 84 /min [facility] Diastolic blood 67 mm[Hg] 67 mm[Hg] [facility] [place] Systolic blood 119 mm[Hg] 119 mm[Hg] [facility] Body temperature 37.608997 Kaylie 37.327255 Kaylie [facility] Respiratory rate 18 /min 18 /min [facility] [facility] 98 % 98 % [facility] saturation in [facility] blood Center by Pulse oximetry Heart rate 91 /min 91 /min [facility] Diastolic blood 60 mm[Hg] 60 mm[Hg] [facility] Systolic blood 103 mm[Hg] 103 mm[Hg] [facility] Body temperature 36.024284 Kaylie 36.258503 Kaylie [facility] Respiratory rate 18 /min 18 /min [facility] Oxygen 98 % 98 % [facility] saturation in Medical Arterial blood Center by Pulse oximetry Heart rate 76 /min 76 /min [facility] Diastolic blood 76 mm[Hg] 76 mm[Hg] [facility] pressure Medical Center Systolic blood 124 mm[Hg] 124 mm[Hg] [facility] Body temperature 36.484716 Kaylie 36.324068 Kaylie [facility] Respiratory rate 18 /min 18 /min [facility] Oxygen 98 % 98 % [facility] saturation in Medical Arterial blood Center by Pulse oximetry Heart rate 76 /min 76 /min [facility] Diastolic blood 76 mm[Hg] 76 mm[Hg] [facility] Systolic blood 124 mm[Hg] 124 mm[Hg] [facility] Body weight 104.716566 kg 104.763090 kg [facility] Body temperature 36.061533 Kaylie 36.104989 Kaylie [facility] Respiratory rate 18 /min 18 /min [facility] Oxygen 96 % 96 % [facility] saturation in Medical Arterial blood Center by Pulse oximetry Heart rate 90 /min 90 /min [facility] Body height 177.754678 cm 177.121010 cm [facility] Diastolic blood 76 mm[Hg] 76 mm[Hg] [facility] Systolic blood 116 mm[Hg] 116 mm[Hg] [facility] [place] Body mass index 33.0 kg/m2 33.0 kg/m2 [facility] (BMI) [Ratio] Medical Center Body temperature 36.686809 Kaylie 36.879855 Kaylie [facility] Respiratory rate 18 /min 18 /min [facility] Heart rate 85 /min 85 /min [facility] Diastolic blood 82 mm[Hg] 82 mm[Hg] [facility] Systolic blood 141 mm[Hg] 141 mm[Hg] [facility] Body temperature 36.243405 Kaylie 36.530552 Kaylie [facility] Respiratory rate 18 /min 18 /min [facility] Heart rate 84 /min 84 /min [facility] Diastolic blood 81 mm[Hg] 81 mm[Hg] [facility] Systolic blood 139 mm[Hg] 139 mm[Hg] [facility] Body weight 95.260120 kg 95.191434 kg [facility] Body temperature 36.714342 Kaylie 36.233322 Kaylie [facility] Respiratory rate 17 /min 17 /min [facility] Oxygen 99 % 99 % [place] saturation in Medical Arterial blood Center by Pulse oximetry Heart rate 86 /min 86 /min [facility] Body height 177.029999 cm 177.463779 cm [facility] Diastolic blood 87 mm[Hg] 87 mm[Hg] [facility] pressure Medical Center Systolic blood 137 mm[Hg] 137 mm[Hg] [facility] Body mass index 30.1 kg/m2 30.1 kg/m2 [facility] (BMI) [Ratio] Medical Center Body temperature 37.715366 Kaylie 37.287266 Kaylie [facility] Respiratory rate 18 /min 18 /min [facility] Oxygen 94 % 94 % [facility] saturation in Medical Arterial blood Center by Pulse oximetry Heart rate 103 /min 103 /min [facility] Diastolic blood 72 mm[Hg] 72 mm[Hg] [facility] Systolic blood 111 mm[Hg] 111 mm[Hg] [facility] Body temperature 36.304569 Kaylie 36.703719 Kaylie [facility] Respiratory rate 16 /min 16 /min [facility] Oxygen 96 % 96 % [facility] saturation in Medical Arterial blood Center by Pulse oximetry Heart rate 97 /min 97 /min [facility] Diastolic blood 77 mm[Hg] 77 mm[Hg] [facility] pressure [facility] Center Systolic blood 133 mm[Hg] 133 mm[Hg] [facility] Body temperature 36.774268 Kaylie 36.296892 Kaylie [facility] Respiratory rate 17 /min 17 /min [facility] Oxygen 94 % 94 % [facility] saturation in Medical Arterial blood Center by Pulse oximetry Heart rate 92 /min 92 /min [facility] Diastolic blood 80 mm[Hg] 80 mm[Hg] [facility] Systolic blood 122 mm[Hg] 122 mm[Hg] [facility] Body weight 113.164537 kg 113.219848 kg [facility] Body temperature 36.768190 Kaylie 36.278720 Kaylie [facility] Respiratory rate 16 /min 16 /min [facility] Oxygen 94 % 94 % [facility] saturation in Medical Arterial blood Center by Pulse oximetry Heart rate 90 /min 90 /min [facility] Body height 177.624139 cm 177.619172 cm [facility] Diastolic blood 64 mm[Hg] 64 mm[Hg] [facility] Systolic blood 128 mm[Hg] 128 mm[Hg] [facility] Center Body mass index 35.8 kg/m2 35.8 kg/m2 [facility] (BMI) [Ratio] Medical Center Body temperature 36.508147 Kaylie 36.496392 Kaylie [facility] Respiratory rate 18 /min 18 /min [facility] Oxygen 95 % 95 % [place] saturation in Medical Arterial blood Center by Pulse oximetry Heart rate 76 /min 76 /min [facility] Diastolic blood 76 mm[Hg] 76 mm[Hg] [facility] Systolic blood 128 mm[Hg] 128 mm[Hg] [facility] Body temperature 36.433674 Kaylie 36.270600 Kaylie [facility] Respiratory rate 18 /min 18 /min [facility] Oxygen 97 % 97 % [place] saturation in Medical Arterial blood Center by Pulse oximetry Heart rate 78 /min 78 /min [facility] Diastolic blood 70 mm[Hg] 70 mm[Hg] [facility] Systolic blood 124 mm[Hg] 124 mm[Hg] [facility] Body weight 86.276621 kg 86.025458 kg [facility] Body temperature 36.563117 Kaylie 36.144524 Kaylie [facility] Respiratory rate 19 /min 19 /min [facility] Oxygen 97 % 97 % [place] saturation in Medical Arterial blood Center by Pulse oximetry Heart rate 74 /min 74 /min [facility] Body height 180.453342 cm 180.314258 cm [facility] Diastolic blood 68 mm[Hg] 68 mm[Hg] [facility] Systolic blood 128 mm[Hg] 128 mm[Hg] [facility] Body mass index 26.4 kg/m2 26.4 kg/m2 [facility] (BMI) [Ratio] [facility] Center Body temperature 36.320975 Kaylie 36.862736 Kaylie [facility] Respiratory rate 18 /min 18 /min [facility] Oxygen 98 % 98 % [facility] [place] saturation in Medical Arterial blood Center by Pulse oximetry Heart rate 91 /min 91 /min [facility] Diastolic blood 65 mm[Hg] 65 mm[Hg] [facility] pressure [facility] Center Systolic blood 129 mm[Hg] 129 mm[Hg] [facility] Body temperature 36.569524 Kaylie 36.333140 Kaylie [facility] Respiratory rate 16 /min 16 /min [facility] Oxygen 98 % 98 % [facility] [place] saturation in Medical Arterial blood Center by Pulse oximetry Heart rate 82 /min 82 /min [facility] Diastolic blood 64 mm[Hg] 64 mm[Hg] [facility] Systolic blood 123 mm[Hg] 123 mm[Hg] [facility] Body temperature 36.142337 Kaylie 36.048608 Kaylie [facility] Respiratory rate 14 /min 14 /min [facility] Oxygen 95 % 95 % [facility] [place] saturation in Medical Arterial blood Center by Pulse oximetry Heart rate 61 /min 61 /min [facility] Diastolic blood 74 mm[Hg] 74 mm[Hg] [facility] Center Systolic blood 124 mm[Hg] 124 mm[Hg] [facility] Body temperature 37.100004 Kaylie 37.690964 Kaylie [facility] Respiratory rate 16 /min 16 /min [facility] Oxygen 99 % 99 % [facility] [place] saturation in Medical Arterial blood Center by Pulse oximetry Heart rate 89 /min 89 /min [facility] Diastolic blood 76 mm[Hg] 76 mm[Hg] [facility] pressure Medical Center Systolic blood 125 mm[Hg] 125 mm[Hg] [facility] Body temperature 37.536485 Kaylie 37.240802 Kaylie [facility] Respiratory rate 14 /min 14 /min [facility] Oxygen 99 % 99 % [facility] [place] saturation in Medical Arterial blood Center by Pulse oximetry Heart rate 91 /min 91 /min [facility] Diastolic blood 80 mm[Hg] 80 mm[Hg] [facility] Systolic blood 120 mm[Hg] 120 mm[Hg] [facility] Body temperature 36.731479 Kaylie 36.272051 Kaylie [facility] Respiratory rate 18 /min 18 /min [facility] Oxygen 99 % 99 % [facility] [place] saturation in Medical Arterial blood Center by Pulse oximetry Heart rate 93 /min 93 /min [facility] Diastolic blood 78 mm[Hg] 78 mm[Hg] [facility] Systolic blood 115 mm[Hg] 115 mm[Hg] [facility] Body temperature 36.243658 Kaylie 36.529296 Kaylie [facility] Respiratory rate 18 /min 18 /min [facility] Oxygen 95 % 95 % [facility] [place] saturation in Medical Arterial blood Center by Pulse oximetry Heart rate 83 /min 83 /min [facility] Diastolic blood 69 mm[Hg] 69 mm[Hg] [facility] [place] Systolic blood 102 mm[Hg] 102 mm[Hg] [facility] Body temperature 37.226569 Kaylie 37.484352 Kaylie [facility] Respiratory rate 18 /min 18 /min [facility] Oxygen 98 % 98 % [facility] [place] saturation in Medical Arterial blood Center by Pulse oximetry Heart rate 91 /min 91 /min [facility] Diastolic blood 65 mm[Hg] 65 mm[Hg] [facility] [place] Systolic blood 101 mm[Hg] 101 mm[Hg] [facility] Body temperature 37.002076 Kaylie 37.425818 Kaylie [facility] Respiratory rate 18 /min 18 /min [facility] Oxygen 96 % 96 % [place] saturation in Medical Arterial blood Center by Pulse oximetry Heart rate 94 /min 94 /min [facility] Diastolic blood 87 mm[Hg] 87 mm[Hg] [facility] Systolic blood 156 mm[Hg] 156 mm[Hg] [facility] Body temperature 36.056616 Kaylie 36.959202 Kaylie [facility] Respiratory rate 17 /min 17 /min [facility] Oxygen 96 % 96 % [facility] [place] saturation in Medical Arterial blood Center by Pulse oximetry Heart rate 95 /min 95 /min [facility] Diastolic blood 91 mm[Hg] 91 mm[Hg] [facility] Systolic blood 149 mm[Hg] 149 mm[Hg] [facility] Body temperature 36.402373 Kaylie 36.324763 Kaylie [facility] Respiratory rate 17 /min 17 /min [facility] Oxygen 96 % 96 % [facility] [place] saturation in Medical Arterial blood Center by Pulse oximetry Heart rate 92 /min 92 /min [facility] Diastolic blood 86 mm[Hg] 86 mm[Hg] [facility] [place] Systolic blood 157 mm[Hg] 157 mm[Hg] [facility] [place] Body temperature 36.811137 Kaylie 36.766191 Kaylie [facility] Respiratory rate 19 /min 19 /min [facility] Oxygen 99 % 99 % [facility] [place] saturation in Medical Arterial blood Center by Pulse oximetry Heart rate 100 /min 100 /min [facility] Diastolic blood 91 mm[Hg] 91 mm[Hg] [facility] [place] Systolic blood 160 mm[Hg] 160 mm[Hg] [facility] Body temperature 36.273744 Kaylie 36.524806 Kaylie [facility] Respiratory rate 22 /min 22 /min [facility] Oxygen 95 % 95 % [facility] [place] saturation in Medical Arterial blood Center by Pulse oximetry Heart rate 82 /min 82 /min [facility] Diastolic blood 91 mm[Hg] 91 mm[Hg] [facility] [place] Systolic blood 143 mm[Hg] 143 mm[Hg] [facility] Body temperature 37.102384 Kaylie 37.429267 Kaylie [facility] Respiratory rate 20 /min 20 /min [facility] Oxygen 95 % 95 % [facility] [place] saturation in Medical Arterial blood Center by Pulse oximetry Heart rate 111 /min 111 /min [facility] Diastolic blood 89 mm[Hg] 89 mm[Hg] [facility] [place] Systolic blood 128 mm[Hg] 128 mm[Hg] [facility] Respiratory rate 20 /min 20 /min [facility] Oxygen 95 % 95 % [facility] [place] saturation in Medical Arterial blood Center by Pulse oximetry Heart rate 113 /min 113 /min [facility] Body height 177.216264 cm 177.166993 cm [facility] Diastolic blood 68 mm[Hg] 68 mm[Hg] [facility] Systolic blood 133 mm[Hg] 133 mm[Hg] [facility] Center Body mass index 31.6 kg/m2 31.6 kg/m2 [facility] (BMI) [Ratio] Medical Center Body weight 100.950178 kg 100.467797 kg [facility] Body temperature 37.933433 Kaylie 37.012928 Kaylie [facility] Body temperature 36.102193 Kaylie 36.786083 Kaylie [facility] Respiratory rate 18 /min 18 /min [facility] Oxygen 97 % 97 % [place] saturation in Medical Arterial blood Center by Pulse oximetry Heart rate 67 /min 67 /min [facility] Diastolic blood 78 mm[Hg] 78 mm[Hg] [facility] Center Systolic blood 134 mm[Hg] 134 mm[Hg] [facility] Center Body weight 95.117150 kg 95.030178 kg [facility] Body temperature 36.702554 Kaylie 36.395078 Kaylie [facility] Respiratory rate 20 /min 20 /min [facility] Oxygen 100 % 100 % [facility] [place] saturation in Medical Arterial blood Center by Pulse oximetry Heart rate 84 /min 84 /min [facility] Body height 177.783926 cm 177.741223 cm [facility] Diastolic blood 90 mm[Hg] 90 mm[Hg] [facility] Systolic blood 130 mm[Hg] 130 mm[Hg] [facility] Body mass index 30.0 kg/m2 30.0 kg/m2 [facility] (BMI) [Ratio] [facility] Center Body temperature 36.416327 Kaylie 36.592957 Kaylie [facility] Respiratory rate 18 /min 18 /min [facility] Oxygen 95 % 95 % [facility] [place] saturation in Medical Arterial blood Center by Pulse oximetry Heart rate 73 /min 73 /min [facility] Diastolic blood 71 mm[Hg] 71 mm[Hg] [facility] pressure [facility] Center Systolic blood 139 mm[Hg] 139 mm[Hg] [facility] Center Body weight 100.223856 kg 100.910828 kg [facility] Body temperature 36.655793 Kaylie 36.262601 Kaylie [facility] Respiratory rate 18 /min 18 /min [facility] Oxygen 92 % 92 % [facility] [place] saturation in Medical Arterial blood Center by Pulse oximetry Heart rate 102 /min 102 /min [facility] Body height 177.232449 cm 177.967817 cm [facility] Diastolic blood 56 mm[Hg] 56 mm[Hg] [facility] Systolic blood 109 mm[Hg] 109 mm[Hg] [facility] Body mass index 31.6 kg/m2 31.6 kg/m2 [facility] (BMI) [Ratio] Medical Center Body temperature 36.191542 Kaylie 36.443589 Kaylie [facility] Respiratory rate 18 /min 18 /min [facility] Oxygen 98 % 98 % [facility] [place] saturation in Medical Arterial blood Center by Pulse oximetry Heart rate 88 /min 88 /min [facility] Diastolic blood 78 mm[Hg] 78 mm[Hg] [facility] Systolic blood 148 mm[Hg] 148 mm[Hg] [facility] Body temperature 36.184535 Kaylie 36.362309 Kaylie [facility] Respiratory rate 18 /min 18 /min [facility] Oxygen 98 % 98 % [facility] [place] saturation in Medical Arterial blood Center by Pulse oximetry Heart rate 98 /min 98 /min [facility] Diastolic blood 68 mm[Hg] 68 mm[Hg] [facility] Center Systolic blood 113 mm[Hg] 113 mm[Hg] [facility] Body temperature 37.583701 Kaylie 37.444258 Kaylie [facility] Respiratory rate 18 /min 18 /min [facility] Oxygen 95 % 95 % [place] saturation in Medical Arterial blood Center by Pulse oximetry Heart rate 84 /min 84 /min [facility] Diastolic blood 82 mm[Hg] 82 mm[Hg] [facility] Systolic blood 131 mm[Hg] 131 mm[Hg] [facility] Body temperature 37.150596 Kaylie 37.496411 Kaylie [facility] Respiratory rate 18 /min 18 /min [facility] Oxygen 94 % 94 % [facility] [place] saturation in Medical Arterial blood Center by Pulse oximetry Heart rate 88 /min 88 /min [facility] Diastolic blood 91 mm[Hg] 91 mm[Hg] [facility] pressure [facility] Center Systolic blood 134 mm[Hg] 134 mm[Hg] [facility] Body weight 102.765567 kg 102.128420 kg [facility] [place] Respiratory rate 18 /min 18 /min [facility] Oxygen 93 % 93 % [facility] [place] saturation in Medical Arterial blood Center by Pulse oximetry Heart rate 98 /min 98 /min [facility] Body height 182.765698 cm 182.073174 cm [facility] Diastolic blood 80 mm[Hg] 80 mm[Hg] [facility] pressure [facility] Center Systolic blood 178 mm[Hg] 178 mm[Hg] [facility] Body mass index 30.5 kg/m2 30.5 kg/m2 [facility] (BMI) [Ratio] Medical Center Body temperature 36.455952 Kaylie 36.649599 Kaylie [facility] Respiratory rate 18 /min 18 /min [facility] Oxygen 95 % 95 % [place] saturation in Medical Arterial blood Center by Pulse oximetry Heart rate 96 /min 96 /min [facility] Diastolic blood 89 mm[Hg] 89 mm[Hg] [facility] pressure [facility] Center Systolic blood 114 mm[Hg] 114 mm[Hg] [facility] Body temperature 36.408881 Kaylie 36.255988 Kaylie [facility] Respiratory rate 17 /min 17 /min [facility] Oxygen 96 % 96 % [place] saturation in Medical Arterial blood Center by Pulse oximetry Heart rate 98 /min 98 /min [facility] Diastolic blood 68 mm[Hg] 68 mm[Hg] [facility] pressure [facility] Center Systolic blood 128 mm[Hg] 128 mm[Hg] [facility] Oxygen 97 % 97 % [place] saturation in Medical Arterial blood Center by Pulse oximetry Heart rate 116 /min 116 /min [facility] Diastolic blood 61 mm[Hg] 61 mm[Hg] [facility] pressure [facility] Center Systolic blood 117 mm[Hg] 117 mm[Hg] [facility] Respiratory rate 18 /min 18 /min [facility] Body temperature 36.733669 Kaylie 36.398276 Kaylie [facility] Body temperature 36.426242 Kaylie 36.845720 Kaylie [facility] Respiratory rate 18 /min 18 /min [facility] Oxygen 97 % 97 % [place] saturation in Medical Arterial blood Center by Pulse oximetry Heart rate 76 /min 76 /min [facility] Diastolic blood 76 mm[Hg] 76 mm[Hg] [facility] pressure [facility] Center Systolic blood 138 mm[Hg] 138 mm[Hg] [facility] Center Body temperature 36.481329 Kaylie 36.288684 Kaylie [facility] Respiratory rate 18 /min 18 /min [facility] Oxygen 98 % 98 % [place] saturation in Medical Arterial blood Center by Pulse oximetry Heart rate 85 /min 85 /min [facility] Diastolic blood 95 mm[Hg] 95 mm[Hg] [facility] Center Systolic blood 154 mm[Hg] 154 mm[Hg] [facility] Body weight 86.012678 kg 86.273922 kg [facility] [place] Body temperature 36.236859 Kaylie 36.107979 Kaylie [facility] Respiratory rate 20 /min 20 /min [facility] Oxygen 95 % 95 % [place] saturation in Medical Arterial blood Center by Pulse oximetry Heart rate 76 /min 76 /min [facility] Body height 170.819970 cm 170.564182 cm [facility] Diastolic blood 74 mm[Hg] 74 mm[Hg] [facility] Systolic blood 120 mm[Hg] 120 mm[Hg] [facility] Center Body mass index 29.7 kg/m2 29.7 kg/m2 [facility] (BMI) [Ratio] Medical Center Body temperature 36.831681 Kaylie 36.791852 Kaylie [facility] Respiratory rate 16 /min 16 /min [facility] Oxygen 95 % 95 % [place] saturation in Medical Arterial blood Center by Pulse oximetry Heart rate 92 /min 92 /min [facility] Diastolic blood 68 mm[Hg] 68 mm[Hg] [facility] Systolic blood 112 mm[Hg] 112 mm[Hg] [facility] Body temperature 37.536366 Kaylie 37.844575 Kaylie [facility] Respiratory rate 18 /min 18 /min [facility] Oxygen 95 % 95 % [place] saturation in Medical Arterial blood Center by Pulse oximetry Heart rate 88 /min 88 /min [facility] Diastolic blood 57 mm[Hg] 57 mm[Hg] [facility] pressure [facility] Center Systolic blood 107 mm[Hg] 107 mm[Hg] [facility] Body weight 120.572024 kg 120.888045 kg [facility] Body temperature 36.861878 Kaylie 36.998266 Kaylie [facility] Respiratory rate 18 /min 18 /min [facility] Oxygen 98 % 98 % [place] saturation in Medical Arterial blood Center by Pulse oximetry Heart rate 84 /min 84 /min [facility] Body height 182.344887 cm 182.204407 cm [facility] Diastolic blood 78 mm[Hg] 78 mm[Hg] [facility] Center Systolic blood 148 mm[Hg] 148 mm[Hg] [facility] Body mass index 35.8 kg/m2 35.8 kg/m2 [facility] (BMI) [Ratio] Medical Center Body temperature 37.005015 Kaylie 37.060190 Kaylie [facility] Respiratory rate 18 /min 18 /min [facility] Oxygen 95 % 95 % [place] saturation in Medical Arterial blood Center by Pulse oximetry Heart rate 94 /min 94 /min [facility] Diastolic blood 56 mm[Hg] 56 mm[Hg] [facility] Systolic blood 110 mm[Hg] 110 mm[Hg] [facility] Body temperature 38.351952 Kaylie 38.468464 Kaylie [facility] Respiratory rate 18 /min 18 /min [facility] Oxygen 97 % 97 % [place] saturation in Medical Arterial blood Center by Pulse oximetry Heart rate 98 /min 98 /min [facility] Diastolic blood 87 mm[Hg] 87 mm[Hg] [facility] [facility] Systolic blood 140 mm[Hg] 140 mm[Hg] [facility] Body temperature 36.559311 Kaylie 36.449225 Kaylie [facility] Respiratory rate 16 /min 16 /min [facility] Oxygen 98 % 98 % [facility] [place] saturation in Medical Arterial blood Center by Pulse oximetry Heart rate 87 /min 87 /min [facility] Diastolic blood 84 mm[Hg] 84 mm[Hg] [facility] Systolic blood 138 mm[Hg] 138 mm[Hg] [facility] [place] Body temperature 37.108301 Kaylie 37.710213 Kaylie [facility] Respiratory rate 18 /min 18 /min [facility] Oxygen 97 % 97 % [facility] [place] saturation in Medical Arterial blood Center by Pulse oximetry Heart rate 88 /min 88 /min [facility] Diastolic blood 72 mm[Hg] 72 mm[Hg] [facility] [place] Systolic blood 134 mm[Hg] 134 mm[Hg] [facility] Body temperature 36.943756 Kaylie 36.780295 Kaylie [facility] Respiratory rate 18 /min 18 /min [facility] Oxygen 98 % 98 % [facility] [place] saturation in Medical Arterial blood Center by Pulse oximetry Heart rate 71 /min 71 /min [facility] Diastolic blood 68 mm[Hg] 68 mm[Hg] [facility] [place] Systolic blood 133 mm[Hg] 133 mm[Hg] [facility] Body temperature 35.032253 Kaylie 35.988301 Kaylie [facility] Respiratory rate 17 /min 17 /min [facility] Oxygen 95 % 95 % [facility] [place] saturation in Medical Arterial blood Center by Pulse oximetry Heart rate 93 /min 93 /min [facility] Diastolic blood 105 mm[Hg] 105 mm[Hg] [facility] Systolic blood 180 mm[Hg] 180 mm[Hg] [facility] Body temperature 36.269373 Kaylie 36.359300 Kaylie [facility] Respiratory rate 20 /min 20 /min [facility] Oxygen 97 % 97 % [facility] [place] saturation in Medical Arterial blood Center by Pulse oximetry Heart rate 89 /min 89 /min [facility] Diastolic blood 92 mm[Hg] 92 mm[Hg] [facility] Systolic blood 158 mm[Hg] 158 mm[Hg] [facility] Body temperature 36.519971 Kaylie 36.956625 Kaylie [facility] Respiratory rate 18 /min 18 /min [facility] Oxygen 96 % 96 % [facility] [place] saturation in Medical Arterial blood Center by Pulse oximetry Heart rate 86 /min 86 /min [facility] Diastolic blood 87 mm[Hg] 87 mm[Hg] [facility] pressure [facility] Center Systolic blood 163 mm[Hg] 163 mm[Hg] [facility] Body temperature 36.303169 Kaylie 36.342700 Kaylie [facility] Respiratory rate 20 /min 20 /min [facility] Oxygen 98 % 98 % [facility] [place] saturation in Medical Arterial blood Center by Pulse oximetry Heart rate 89 /min 89 /min [facility] Diastolic blood 103 mm[Hg] 103 mm[Hg] [facility] Systolic blood 154 mm[Hg] 154 mm[Hg] [facility] Heart rate 91 /min 91 /min [facility] Diastolic blood 110 mm[Hg] 110 mm[Hg] [facility] Systolic blood 167 mm[Hg] 167 mm[Hg] [facility] [place] Body temperature 36.704538 Kaylie 36.009597 Kaylie [facility] Respiratory rate 18 /min 18 /min [facility] Oxygen 98 % 98 % [facility] [place] saturation in Medical Arterial blood Center by Pulse oximetry Body temperature 36.831759 Kaylie 36.711389 Kaylie [facility] Respiratory rate 20 /min 20 /min [facility] Oxygen 95 % 95 % [facility] [place] saturation in Medical Arterial blood Center by Pulse oximetry Heart rate 96 /min 96 /min [facility] Diastolic blood 146 mm[Hg] 146 mm[Hg] [facility] Systolic blood 211 mm[Hg] 211 mm[Hg] [facility] Body temperature 36.882926 Kaylie 36.451407 Kaylie [facility] Respiratory rate 18 /min 18 /min [facility] Oxygen 97 % 97 % [facility] [place] saturation in Medical Arterial blood Center by Pulse oximetry Heart rate 79 /min 79 /min [facility] Diastolic blood 106 mm[Hg] 106 mm[Hg] [facility] Systolic blood 179 mm[Hg] 179 mm[Hg] [facility] Body temperature 37.540767 Kaylie 37.448803 Kaylie [facility] Respiratory rate 18 /min 18 /min [facility] Oxygen 96 % 96 % [facility] [place] saturation in Medical Arterial blood Center by Pulse oximetry Heart rate 81 /min 81 /min [facility] Diastolic blood 82 mm[Hg] 82 mm[Hg] [facility] Systolic blood 151 mm[Hg] 151 mm[Hg] [facility] Body temperature 36.724897 Kaylie 36.118566 Kaylie [facility] Respiratory rate 18 /min 18 /min [facility] Heart rate 77 /min 77 /min [facility] Body temperature 37.556047 Kaylie 37.320015 Kaylie [facility] Respiratory rate 18 /min 18 /min [facility] Oxygen 97 % 97 % [facility] [place] saturation in Medical Arterial blood Center by Pulse oximetry Heart rate 80 /min 80 /min [facility] Diastolic blood 89 mm[Hg] 89 mm[Hg] [facility] Systolic blood 153 mm[Hg] 153 mm[Hg] [facility] Oxygen 97 % 97 % [facility] [place] saturation in Medical Arterial blood Center by Pulse oximetry Diastolic blood 90 mm[Hg] 90 mm[Hg] [facility] [place] Systolic blood 177 mm[Hg] 177 mm[Hg] [facility] Body temperature 36.553197 Kaylie 36.437284 Kaylie [facility] Respiratory rate 17 /min 17 /min [facility] Oxygen 95 % 95 % [facility] [place] saturation in Medical Arterial blood Center by Pulse oximetry Heart rate 67 /min 67 /min [facility] Diastolic blood 98 mm[Hg] 98 mm[Hg] [facility] Systolic blood 160 mm[Hg] 160 mm[Hg] [facility] [place] Body weight 100.127164 kg 100.411631 kg [facility] Body temperature 36.232413 Kaylie 36.658737 Kaylie [facility] Respiratory rate 19 /min 19 /min [facility] Oxygen 98 % 98 % [facility] [place] saturation in Medical Arterial blood Center by Pulse oximetry Heart rate 92 /min 92 /min [facility] Body height 177.518133 cm 177.058833 cm [facility] Diastolic blood 103 mm[Hg] 103 mm[Hg] [facility] pressure [facility] Center Systolic blood 166 mm[Hg] 166 mm[Hg] [facility] Body mass index 31.6 kg/m2 31.6 kg/m2 [facility] (BMI) [Ratio] [facility] Center Body temperature 36.739004 Kaylie 36.677343 Kaylie [facility] Respiratory rate 18 /min 18 /min [facility] Oxygen 96 % 96 % [facility] [place] saturation in Medical Arterial blood Center by Pulse oximetry Heart rate 90 /min 90 /min [facility] Diastolic blood 74 mm[Hg] 74 mm[Hg] [facility] Systolic blood 145 mm[Hg] 145 mm[Hg] [facility] Body temperature 36.162439 Kaylie 36.634454 Kaylie [facility] Respiratory rate 18 /min 18 /min [facility] Oxygen 97 % 97 % [facility] [place] saturation in Medical Arterial blood Center by Pulse oximetry Heart rate 92 /min 92 /min [facility] Diastolic blood 78 mm[Hg] 78 mm[Hg] [facility] pressure [facility] Systolic blood 147 mm[Hg] 147 mm[Hg] [facility] Body temperature 37.450434 Kaylie 37.272575 Kaylie [facility] Respiratory rate 19 /min 19 /min [facility] Oxygen 96 % 96 % [facility] [place] saturation in Medical Arterial blood Center by Pulse oximetry Heart rate 90 /min 90 /min [facility] Diastolic blood 74 mm[Hg] 74 mm[Hg] [facility] Systolic blood 132 mm[Hg] 132 mm[Hg] [facility] Body temperature 36.082416 Kaylie 36.377737 Kaylie [facility] Respiratory rate 18 /min 18 /min [facility] Oxygen 92 % 92 % [facility] [place] saturation in Medical Arterial blood Center by Pulse oximetry Heart rate 93 /min 93 /min [facility] Diastolic blood 78 mm[Hg] 78 mm[Hg] [facility] Systolic blood 130 mm[Hg] 130 mm[Hg] [facility] Body temperature 36.041817 Kaylie 36.856962 Kaylie [facility] Respiratory rate 17 /min 17 /min [facility] Oxygen 97 % 97 % [place] saturation in Medical Arterial blood Center by Pulse oximetry Heart rate 75 /min 75 /min [facility] Diastolic blood 65 mm[Hg] 65 mm[Hg] [facility] pressure [facility] Systolic blood 139 mm[Hg] 139 mm[Hg] [facility] Body weight 104.750309 kg 104.174924 kg [facility] Body temperature 36.382417 Kaylie 36.801742 Kaylie [facility] Respiratory rate 17 /min 17 /min [facility] Oxygen 92 % 92 % [place] saturation in Medical Arterial blood Center by Pulse oximetry Heart rate 88 /min 88 /min [facility] Body height 177.763134 cm 177.701417 cm [facility] Diastolic blood 74 mm[Hg] 74 mm[Hg] [facility] Systolic blood 126 mm[Hg] 126 mm[Hg] [facility] [place] Body mass index 33.0 kg/m2 33.0 kg/m2 [facility] (BMI) [Ratio] [facility] Body temperature 37.141579 Kaylie 37.989078 Kaylie [facility] Respiratory rate 18 /min 18 /min [facility] Oxygen 96 % 96 % [place] saturation in Medical Arterial blood Center by Pulse oximetry Heart rate 93 /min 93 /min [facility] Diastolic blood 78 mm[Hg] 78 mm[Hg] [facility] Systolic blood 138 mm[Hg] 138 mm[Hg] [facility] Body temperature 36.234526 Kaylie 36.190981 Kaylie [facility] Respiratory rate 18 /min 18 /min [facility] Oxygen 97 % 97 % [place] saturation in Medical Arterial blood Center by Pulse oximetry Heart rate 89 /min 89 /min [facility] Diastolic blood 86 mm[Hg] 86 mm[Hg] [facility] Systolic blood 142 mm[Hg] 142 mm[Hg] [facility] Body temperature 36.118136 Kaylie 36.740539 Kaylie [facility] Respiratory rate 18 /min 18 /min [facility] Oxygen 98 % 98 % [facility] [place] saturation in Medical Arterial blood Center by Pulse oximetry Heart rate 75 /min 75 /min [facility] Diastolic blood 65 mm[Hg] 65 mm[Hg] [facility] pressure [facility] Center Systolic blood 131 mm[Hg] 131 mm[Hg] [facility] Body temperature 36.725228 Kaylie 36.673618 Kaylie [facility] Respiratory rate 17 /min 17 /min [facility] Oxygen 97 % 97 % [facility] [place] saturation in Medical Arterial blood Center by Pulse oximetry Heart rate 81 /min 81 /min [facility] Diastolic blood 73 mm[Hg] 73 mm[Hg] [facility] pressure [facility] Center Systolic blood 139 mm[Hg] 139 mm[Hg] [facility] Body temperature 36.261615 Kaylie 36.060161 Kaylie [facility] Respiratory rate 18 /min 18 /min [facility] Oxygen 98 % 98 % [facility] [place] saturation in Medical Arterial blood Center by Pulse oximetry Heart rate 88 /min 88 /min [facility] Diastolic blood 72 mm[Hg] 72 mm[Hg] [facility] pressure [facility] Center Systolic blood 148 mm[Hg] 148 mm[Hg] [facility] Body temperature 36.659256 Kaylie 36.705663 Kaylie [facility] Respiratory rate 17 /min 17 /min [facility] Oxygen 95 % 95 % [facility] [place] saturation in Medical Arterial blood Center by Pulse oximetry Heart rate 84 /min 84 /min [facility] Diastolic blood 83 mm[Hg] 83 mm[Hg] [facility] pressure [facility] Center Systolic blood 138 mm[Hg] 138 mm[Hg] [facility] Body temperature 37.167129 Kaylie 37.279887 Kaylie [facility] Respiratory rate 18 /min 18 /min [facility] Oxygen 95 % 95 % [facility] [place] saturation in Medical Arterial blood Center by Pulse oximetry Heart rate 88 /min 88 /min [facility] Diastolic blood 78 mm[Hg] 78 mm[Hg] [facility] pressure [facility] Center Systolic blood 143 mm[Hg] 143 mm[Hg] [facility] Body temperature 36.647006 Kaylie 36.106309 Kaylie [facility] Respiratory rate 18 /min 18 /min [facility] Oxygen 95 % 95 % [facility] [place] saturation in Medical Arterial blood Center by Pulse oximetry Heart rate 87 /min 87 /min [facility] Diastolic blood 98 mm[Hg] 98 mm[Hg] [facility] Systolic blood 122 mm[Hg] 122 mm[Hg] [facility] Body temperature 36.573997 Kaylie 36.173104 Kaylie [facility] Respiratory rate 16 /min 16 /min [facility] Oxygen 95 % 95 % [facility] [place] saturation in Medical Arterial blood Center by Pulse oximetry Heart rate 68 /min 68 /min [facility] Diastolic blood 60 mm[Hg] 60 mm[Hg] [facility] [place] Systolic blood 118 mm[Hg] 118 mm[Hg] [facility] Body temperature 37.407904 Kaylie 37.226865 Kaylie [facility] Respiratory rate 20 /min 20 /min [facility] Oxygen 97 % 97 % [facility] [place] saturation in Medical Arterial blood Center by Pulse oximetry Heart rate 96 /min 96 /min [facility] Diastolic blood 95 mm[Hg] 95 mm[Hg] [facility] [place] Systolic blood 167 mm[Hg] 167 mm[Hg] [facility] Body temperature 36.554129 Kaylie 36.649200 Kaylie [facility] Respiratory rate 20 /min 20 /min [facility] Oxygen 96 % 96 % [place] saturation in Medical Arterial blood Center by Pulse oximetry Heart rate 86 /min 86 /min [facility] Diastolic blood 99 mm[Hg] 99 mm[Hg] [facility] Systolic blood 168 mm[Hg] 168 mm[Hg] [facility] Body weight 109.643879 kg 109.456991 kg [facility] [place] Body temperature 36.475001 Kaylie 36.603885 Kaylie [facility] Respiratory rate 20 /min 20 /min [facility] Oxygen 97 % 97 % [facility] [place] saturation in Medical Arterial blood Center by Pulse oximetry Heart rate 88 /min 88 /min [facility] Body height 175.584480 cm 175.947211 cm [facility] Diastolic blood 104 mm[Hg] 104 mm[Hg] [facility] pressure [facility] Systolic blood 165 mm[Hg] 165 mm[Hg] [facility] Body mass index 35.5 kg/m2 35.5 kg/m2 [facility] (BMI) [Ratio] [facility] Body temperature 36.678770 Kaylie 36.950385 Kaylie [facility] Respiratory rate 20 /min 20 /min [facility] Oxygen 94 % 94 % [place] saturation in Medical Arterial blood Center by Pulse oximetry Heart rate 89 /min 89 /min [facility] Diastolic blood 81 mm[Hg] 81 mm[Hg] [facility] pressure [facility] Systolic blood 137 mm[Hg] 137 mm[Hg] [facility] Body temperature 36.268745 Kaylie 36.064526 Kaylie [facility] Respiratory rate 17 /min 17 /min [facility] Oxygen 98 % 98 % [place] saturation in Medical Arterial blood Center by Pulse oximetry Heart rate 74 /min 74 /min [facility] Diastolic blood 73 mm[Hg] 73 mm[Hg] [facility] pressure [facility] Systolic blood 135 mm[Hg] 135 mm[Hg] [facility] Body temperature 37.252764 Kaylie 37.846844 Kaylie [facility] Respiratory rate 18 /min 18 /min [facility] Oxygen 99 % 99 % [place] saturation in Medical Arterial blood Center by Pulse oximetry Heart rate 93 /min 93 /min [facility] Diastolic blood 77 mm[Hg] 77 mm[Hg] [facility] pressure [facility] Systolic blood 141 mm[Hg] 141 mm[Hg] [facility] Body temperature 37.307065 Kaylie 37.118397 Kaylie [facility] Respiratory rate 18 /min 18 /min [facility] Oxygen 99 % 99 % [place] saturation in Medical Arterial blood Center by Pulse oximetry Heart rate 73 /min 73 /min [facility] Diastolic blood 85 mm[Hg] 85 mm[Hg] [facility] pressure [facility] Systolic blood 128 mm[Hg] 128 mm[Hg] [facility] Body temperature 36.767207 Kaylie 36.824815 Kaylie [facility] Respiratory rate 17 /min 17 /min [facility] Oxygen 99 % 99 % [place] saturation in Medical Arterial blood Center by Pulse oximetry Heart rate 85 /min 85 /min [facility] Diastolic blood 78 mm[Hg] 78 mm[Hg] [facility] pressure [facility] Systolic blood 132 mm[Hg] 132 mm[Hg] [facility] Body temperature 36.390008 Kaylie 36.260169 Kaylie [facility] Respiratory rate 18 /min 18 /min [facility] Oxygen 98 % 98 % [place] saturation in Medical Arterial blood Center by Pulse oximetry Heart rate 82 /min 82 /min [facility] Diastolic blood 83 mm[Hg] 83 mm[Hg] [facility] [place] Systolic blood 125 mm[Hg] 125 mm[Hg] [facility] Body temperature 37.468136 Kaylie 37.171506 Kaylie [facility] Respiratory rate 18 /min 18 /min [facility] Oxygen 97 % 97 % [place] saturation in Medical Arterial blood Center by Pulse oximetry Heart rate 101 /min 101 /min [facility] Diastolic blood 77 mm[Hg] 77 mm[Hg] [facility] pressure [facility] Systolic blood 137 mm[Hg] 137 mm[Hg] [facility] Heart rate 88 /min 88 /min [facility] Diastolic blood 78 mm[Hg] 78 mm[Hg] [facility] pressure [facility] Center Systolic blood 144 mm[Hg] 144 mm[Hg] [facility] [place] Body temperature 36.614642 Kaylie 36.672306 Kaylie [facility] Respiratory rate 18 /min 18 /min [facility] Oxygen 97 % 97 % [place] saturation in Medical Arterial blood Center by Pulse oximetry Body temperature 37.706751 Kaylie 37.405193 Kaylie [facility] Respiratory rate 18 /min 18 /min [facility] Oxygen 95 % 95 % [place] saturation in Medical Arterial blood Center by Pulse oximetry Heart rate 90 /min 90 /min [facility] Diastolic blood 92 mm[Hg] 92 mm[Hg] [facility] pressure [facility] Systolic blood 153 mm[Hg] 153 mm[Hg] [facility] Body temperature 37.636396 Kaylie 37.498130 Kaylie [facility] Respiratory rate 18 /min 18 /min [facility] Oxygen 95 % 95 % [place] saturation in Medical Arterial blood Center by Pulse oximetry Heart rate 96 /min 96 /min [facility] Diastolic blood 75 mm[Hg] 75 mm[Hg] [facility] pressure [facility] Center Systolic blood 127 mm[Hg] 127 mm[Hg] [facility] [place] Body temperature 36.002516 Kaylie 36.300680 Akylie [facility] Respiratory rate 18 /min 18 /min [facility] Oxygen 96 % 96 % [place] saturation in Medical Arterial blood Center by Pulse oximetry Heart rate 96 /min 96 /min [facility] Diastolic blood 98 mm[Hg] 98 mm[Hg] [facility] Systolic blood 151 mm[Hg] 151 mm[Hg] [facility] [place] Body temperature 36.463599 Kaylie 36.742369 Kaylie [facility] Respiratory rate 17 /min 17 /min [facility] Oxygen 96 % 96 % [place] saturation in Medical Arterial blood Center by Pulse oximetry Heart rate 94 /min 94 /min [facility] Diastolic blood 74 mm[Hg] 74 mm[Hg] [facility] Systolic blood 138 mm[Hg] 138 mm[Hg] [facility] Respiratory rate 16 /min 16 /min [facility] Oxygen 98 % 98 % [place] saturation in Medical Arterial blood Center by Pulse oximetry Heart rate 91 /min 91 /min [facility] Diastolic blood 70 mm[Hg] 70 mm[Hg] [facility] pressure [facility] Systolic blood 130 mm[Hg] 130 mm[Hg] [facility] Body temperature 36.118848 Kaylie 36.763609 Kaylie [facility] Respiratory rate 16 /min 16 /min [facility] Oxygen 97 % 97 % [place] saturation in Medical Arterial blood Center by Pulse oximetry Heart rate 91 /min 91 /min [facility] Diastolic blood 61 mm[Hg] 61 mm[Hg] [facility] pressure [facility] Systolic blood 109 mm[Hg] 109 mm[Hg] [facility] Body temperature 36.196298 Kaylie 36.339978 Kaylie [facility] Respiratory rate 17 /min 17 /min [facility] Oxygen 95 % 95 % [place] saturation in Medical Arterial blood Center by Pulse oximetry Heart rate 96 /min 96 /min [facility] Diastolic blood 50 mm[Hg] 50 mm[Hg] [facility] pressure [facility] Center Systolic blood 110 mm[Hg] 110 mm[Hg] [facility] Body temperature 36.195936 Kaylie 36.673448 Kaylie [facility] Respiratory rate 18 /min 18 /min [facility] Oxygen 97 % 97 % [place] saturation in Medical Arterial blood Center by Pulse oximetry Heart rate 82 /min 82 /min [facility] Diastolic blood 70 mm[Hg] 70 mm[Hg] [facility] Systolic blood 120 mm[Hg] 120 mm[Hg] [facility] [place] Body temperature 36.566694 Kaylie 36.078603 Kaylie [facility] Respiratory rate 17 /min 17 /min [facility] Oxygen 98 % 98 % [place] saturation in Medical Arterial blood Center by Pulse oximetry Heart rate 76 /min 76 /min [facility] Diastolic blood 67 mm[Hg] 67 mm[Hg] [facility] pressure [facility] Center Systolic blood 154 mm[Hg] 154 mm[Hg] [facility] Body temperature 36.010780 Kaylie 36.274803 Kaylie [facility] Respiratory rate 18 /min 18 /min [facility] Heart rate 90 /min 90 /min [facility] Diastolic blood 71 mm[Hg] 71 mm[Hg] [facility] [facility] Systolic blood 140 mm[Hg] 140 mm[Hg] [facility] Body temperature 36.315620 Kaylie 36.236470 Kaylie [facility] Respiratory rate 17 /min 17 /min [facility] Oxygen 95 % 95 % [place] saturation in Medical Arterial blood Center by Pulse oximetry Heart rate 90 /min 90 /min [facility] Diastolic blood 77 mm[Hg] 77 mm[Hg] [facility] Center Systolic blood 137 mm[Hg] 137 mm[Hg] [facility] Body temperature 36.245394 Kaylie 36.874767 Kaylie [facility] Respiratory rate 18 /min 18 /min [facility] Oxygen 98 % 98 % [place] saturation in Medical Arterial blood Center by Pulse oximetry Heart rate 76 /min 76 /min [facility] Diastolic blood 80 mm[Hg] 80 mm[Hg] [facility] Center Systolic blood 124 mm[Hg] 124 mm[Hg] [facility] Body temperature 36.411671 Kaylie 36.865794 Kaylie [facility] Respiratory rate 18 /min 18 /min [facility] Oxygen 99 % 99 % [place] saturation in Medical Arterial blood Center by Pulse oximetry Heart rate 90 /min 90 /min [facility] Diastolic blood 77 mm[Hg] 77 mm[Hg] [facility] Systolic blood 149 mm[Hg] 149 mm[Hg] [facility] Body temperature 36.933837 Kaylie 36.111792 Kaylie [facility] Respiratory rate 19 /min 19 /min [facility] Oxygen 99 % 99 % [place] saturation in Medical Arterial blood Center by Pulse oximetry Heart rate 88 /min 88 /min [facility] Diastolic blood 66 mm[Hg] 66 mm[Hg] [facility] [place] Systolic blood 154 mm[Hg] 154 mm[Hg] [facility] Body temperature 36.565260 Kaylie 36.882237 Kaylie [facility] Respiratory rate 18 /min 18 /min [facility] Oxygen 96 % 96 % [place] saturation in Medical Arterial blood Center by Pulse oximetry Heart rate 93 /min 93 /min [facility] Diastolic blood 76 mm[Hg] 76 mm[Hg] [facility] Systolic blood 144 mm[Hg] 144 mm[Hg] [facility] Body temperature 37.988181 Kaylie 37.598139 Kaylie [facility] Respiratory rate 19 /min 19 /min [facility] Oxygen 95 % 95 % [place] saturation in Medical Arterial blood Center by Pulse oximetry Heart rate 90 /min 90 /min [facility] Diastolic blood 59 mm[Hg] 59 mm[Hg] [facility] Systolic blood 133 mm[Hg] 133 mm[Hg] [facility] Center Body temperature 36.599853 Kaylie 36.397185 Kaylie [facility] Respiratory rate 18 /min 18 /min [facility] Oxygen 97 % 97 % [facility] saturation in Medical Arterial blood Center by Pulse oximetry Heart rate 88 /min 88 /min [facility] Diastolic blood 67 mm[Hg] 67 mm[Hg] [facility] Systolic blood 148 mm[Hg] 148 mm[Hg] [facility] Body temperature 36.317705 Kaylie 36.891503 Kaylie [facility] Respiratory rate 20 /min 20 /min [facility] Oxygen 94 % 94 % [facility] saturation in Medical Arterial blood Center by Pulse oximetry Heart rate 88 /min 88 /min [facility] Diastolic blood 66 mm[Hg] 66 mm[Hg] [facility] Center Systolic blood 135 mm[Hg] 135 mm[Hg] [facility] Body temperature 37.056743 Kaylie 37.494774 Kaylie [facility] Respiratory rate 20 /min 20 /min [facility] Oxygen 94 % 94 % [facility] saturation in Medical Arterial blood Center by Pulse oximetry Heart rate 84 /min 84 /min [facility] Diastolic blood 69 mm[Hg] 69 mm[Hg] [facility] Center Systolic blood 130 mm[Hg] 130 mm[Hg] [facility] Body weight 90.504631 kg 90.980359 kg [facility] Body height 175.476423 cm 175.154008 cm [facility] Body mass index 29.5 kg/m2 29.5 kg/m2 [facility] (BMI) [Ratio] Medical Center Body temperature 36.737972 Kaylie 36.100268 Kaylie [facility] Respiratory rate 17 /min 17 /min [facility] Oxygen 98 % 98 % [facility] saturation in Medical Arterial blood Center by Pulse oximetry Heart rate 71 /min 71 /min [facility] Diastolic blood 76 mm[Hg] 76 mm[Hg] [facility] Systolic blood 136 mm[Hg] 136 mm[Hg] [facility] Body temperature 36.304437 Kaylie 36.524886 Kaylie [facility] Respiratory rate 18 /min 18 /min [facility] Oxygen 97 % 97 % [place] saturation in Medical Arterial blood Center by Pulse oximetry Heart rate 76 /min 76 /min [facility] Diastolic blood 76 mm[Hg] 76 mm[Hg] [facility] Systolic blood 124 mm[Hg] 124 mm[Hg] [facility] Body temperature 36.509111 Kaylie 36.777600 Kaylie [facility] Respiratory rate 19 /min 19 /min [facility] Oxygen 97 % 97 % [place] saturation in Medical Arterial blood Center by Pulse oximetry Heart rate 97 /min 97 /min [facility] Diastolic blood 73 mm[Hg] 73 mm[Hg] [facility] Center Systolic blood 118 mm[Hg] 118 mm[Hg] [facility] Body weight 104.390580 kg 104.069579 kg [facility] Body temperature 36.052705 Kaylie 36.706660 Kaylie [facility] Respiratory rate 17 /min 17 /min [facility] Oxygen 96 % 96 % [place] saturation in Medical Arterial blood Center by Pulse oximetry Heart rate 95 /min 95 /min [facility] Body height 177.307276 cm 177.096854 cm [facility] Diastolic blood 81 mm[Hg] 81 mm[Hg] [facility] Systolic blood 150 mm[Hg] 150 mm[Hg] [facility] Body mass index 33.0 kg/m2 33.0 kg/m2 [facility] (BMI) [Ratio] Medical Center Body temperature 36.395805 Kaylie 36.482335 Kaylie [facility] Respiratory rate 18 /min 18 /min [facility] Oxygen 97 % 97 % [place] saturation in Medical Arterial blood Center by Pulse oximetry Heart rate 89 /min 89 /min [facility] Diastolic blood 75 mm[Hg] 75 mm[Hg] [facility] Systolic blood 144 mm[Hg] 144 mm[Hg] [facility] Body temperature 36.497061 Kaylie 36.463835 Kaylie [facility] Respiratory rate 18 /min 18 /min [facility] Oxygen 97 % 97 % [place] saturation in Medical Arterial blood Center by Pulse oximetry Heart rate 71 /min 71 /min [facility] Diastolic blood 96 mm[Hg] 96 mm[Hg] [facility] Systolic blood 136 mm[Hg] 136 mm[Hg] [facility] Heart rate 84 /min 84 /min [facility] Diastolic blood 83 mm[Hg] 83 mm[Hg] [facility] Center Systolic blood 132 mm[Hg] 132 mm[Hg] [facility] Respiratory rate 18 /min 18 /min [facility] Oxygen 97 % 97 % [place] saturation in Medical Arterial blood Center by Pulse oximetry Body temperature 36.659438 Kaylie 36.296774 Kaylie [facility] Respiratory rate 18 /min 18 /min [facility] Oxygen 97 % 97 % [place] saturation in Medical Arterial blood Center by Pulse oximetry Heart rate 82 /min 82 /min [facility] Diastolic blood 82 mm[Hg] 82 mm[Hg] [facility] Systolic blood 138 mm[Hg] 138 mm[Hg] [facility] Body temperature 36.181682 Kaylie 36.355047 Kaylie [facility] Respiratory rate 18 /min 18 /min [facility] Oxygen 96 % 96 % [place] saturation in Medical Arterial blood Center by Pulse oximetry Heart rate 95 /min 95 /min [facility] Diastolic blood 84 mm[Hg] 84 mm[Hg] [facility] Systolic blood 155 mm[Hg] 155 mm[Hg] [facility] Body temperature 36.295217 Kaylie 36.983758 Kaylie [facility] Respiratory rate 21 /min 21 /min [facility] Oxygen 98 % 98 % [place] saturation in Medical Arterial blood Center by Pulse oximetry Heart rate 97 /min 97 /min [facility] Diastolic blood 79 mm[Hg] 79 mm[Hg] [facility] Systolic blood 162 mm[Hg] 162 mm[Hg] [facility] Body weight 90.642740 kg 90.025577 kg [facility] Body temperature 36.874091 Kaylie 36.583294 Kaylie [facility] Respiratory rate 18 /min 18 /min [facility] Oxygen 96 % 96 % [place] saturation in Medical Arterial blood Center by Pulse oximetry Heart rate 92 /min 92 /min [facility] Body height 177.237668 cm 177.777852 cm [facility] Diastolic blood 85 mm[Hg] 85 mm[Hg] [facility] Center Systolic blood 141 mm[Hg] 141 mm[Hg] [facility] Center Body mass index 28.6 kg/m2 28.6 kg/m2 [facility] (BMI) [Ratio] Medical Center Body temperature 36.838650 Kaylie 36.155470 Kaylie [facility] Respiratory rate 20 /min 20 /min [facility] Oxygen 94 % 94 % [place] saturation in Medical Arterial blood Center by Pulse oximetry Heart rate 96 /min 96 /min [facility] Diastolic blood 85 mm[Hg] 85 mm[Hg] [facility] Systolic blood 125 mm[Hg] 125 mm[Hg] [facility] Body temperature 36.881574 Kaylie 36.056557 Kaylie [facility] Respiratory rate 19 /min 19 /min [facility] Oxygen 93 % 93 % [place] saturation in Medical Arterial blood Center by Pulse oximetry Heart rate 91 /min 91 /min [facility] Diastolic blood 74 mm[Hg] 74 mm[Hg] [facility] Systolic blood 132 mm[Hg] 132 mm[Hg] [facility] Center Body weight 95.327270 kg 95.317420 kg [facility] Body temperature 36.223311 Kaylie 36.382018 Kaylie [facility] Respiratory rate 17 /min 17 /min [facility] Oxygen 95 % 95 % [place] saturation in Medical Arterial blood Center by Pulse oximetry Heart rate 86 /min 86 /min [facility] Body height 177.170846 cm 177.470886 cm [facility] Diastolic blood 72 mm[Hg] 72 mm[Hg] [facility] Systolic blood 123 mm[Hg] 123 mm[Hg] [facility] Body mass index 30.1 kg/m2 30.1 kg/m2 [facility] (BMI) [Ratio] Medical Center Body temperature 36.522826 Kaylie 36.363013 Kaylie [facility] Respiratory rate 16 /min 16 /min [facility] Oxygen 93 % 93 % [place] saturation in Medical Arterial blood Center by Pulse oximetry Heart rate 103 /min 103 /min [facility] Diastolic blood 67 mm[Hg] 67 mm[Hg] [facility] Systolic blood 123 mm[Hg] 123 mm[Hg] [facility] Body temperature 36.881573 Kaylie 36.234629 Kaylie [facility] Respiratory rate 18 /min 18 /min [facility] Oxygen 98 % 98 % [place] saturation in Medical Arterial blood Center by Pulse oximetry Heart rate 76 /min 76 /min [facility] Diastolic blood 77 mm[Hg] 77 mm[Hg] [facility] Systolic blood 120 mm[Hg] 120 mm[Hg] [facility] Body temperature 36.344635 Kaylie 36.412672 Kaylie [facility] Respiratory rate 18 /min 18 /min [facility] Oxygen 98 % 98 % [place] saturation in Medical Arterial blood Center by Pulse oximetry Heart rate 76 /min 76 /min [facility] Diastolic blood 76 mm[Hg] 76 mm[Hg] [facility] Systolic blood 122 mm[Hg] 122 mm[Hg] [facility] Body temperature 35.908182 Kaylie 35.400368 Kaylie [facility] Respiratory rate 17 /min 17 /min [facility] Oxygen 97 % 97 % [place] saturation in Medical Arterial blood Center by Pulse oximetry Heart rate 86 /min 86 /min [facility] Diastolic blood 69 mm[Hg] 69 mm[Hg] [facility] Systolic blood 121 mm[Hg] 121 mm[Hg] [facility] Body temperature 37.064871 Kaylie 37.755691 Kaylie [facility] Respiratory rate 16 /min 16 /min [facility] Oxygen 98 % 98 % [place] saturation in Medical Arterial blood Center by Pulse oximetry Heart rate 80 /min 80 /min [facility] Diastolic blood 65 mm[Hg] 65 mm[Hg] [facility] Systolic blood 116 mm[Hg] 116 mm[Hg] [facility] Respiratory rate 16 /min 16 /min [facility] Oxygen 97 % 97 % [place] saturation in Medical Arterial blood Center by Pulse oximetry Heart rate 84 /min 84 /min [facility] Diastolic blood 69 mm[Hg] 69 mm[Hg] [facility] Systolic blood 115 mm[Hg] 115 mm[Hg] [facility] Body temperature 37.931330 Kaylie 37.862712 Kaylie [facility] Oxygen 98 % 98 % [place] saturation in Medical Arterial blood Center by Pulse oximetry Heart rate 90 /min 90 /min [facility] Diastolic blood 72 mm[Hg] 72 mm[Hg] [facility] [place] Systolic blood 106 mm[Hg] 106 mm[Hg] [facility] Body temperature 36.473414 Kaylie 36.499501 Kaylie [facility] Respiratory rate 19 /min 19 /min [facility] Oxygen 98 % 98 % [place] saturation in Medical Arterial blood Center by Pulse oximetry Heart rate 86 /min 86 /min [facility] Diastolic blood 55 mm[Hg] 55 mm[Hg] [facility] Systolic blood 91 mm[Hg] 91 mm[Hg] [facility] Body temperature 37.589214 Kaylie 37.387130 Kaylie [facility] Respiratory rate 18 /min 18 /min [facility] Oxygen 95 % 95 % [place] saturation in Medical Arterial blood Center by Pulse oximetry Heart rate 95 /min 95 /min [facility] Diastolic blood 79 mm[Hg] 79 mm[Hg] [facility] Systolic blood 122 mm[Hg] 122 mm[Hg] [facility] Body weight 105.297624 kg 105.626277 kg [facility] Body temperature 37.176441 Kaylie 37.590363 Kaylie [facility] Respiratory rate 20 /min 20 /min [facility] Oxygen 94 % 94 % [place] saturation in Medical Arterial blood Center by Pulse oximetry Heart rate 83 /min 83 /min [facility] Body height 175.542145 cm 175.655175 cm [facility] Diastolic blood 85 mm[Hg] 85 mm[Hg] [facility] Systolic blood 134 mm[Hg] 134 mm[Hg] [facility] Body mass index 34.2 kg/m2 34.2 kg/m2 [facility] (BMI) [Ratio] Medical Center Body weight 81.495335 kg 81.584683 kg [facility] Body temperature 36.992031 Kaylie 36.350390 Kaylie [facility] Respiratory rate 18 /min 18 /min [facility] Oxygen 96 % 96 % [place] saturation in Medical Arterial blood Center by Pulse oximetry Heart rate 86 /min 86 /min [facility] Body height 172.494285 cm 172.529148 cm [facility] Diastolic blood 85 mm[Hg] 85 mm[Hg] [facility] Systolic blood 138 mm[Hg] 138 mm[Hg] [facility] Body mass index 27.3 kg/m2 27.3 kg/m2 [facility] (BMI) [Ratio] Medical Center Body temperature 36.955993 Kaylie 36.549529 Kaylie [facility] Respiratory rate 17 /min 17 /min [facility] Oxygen 98 % 98 % [place] saturation in Medical Arterial blood Center by Pulse oximetry Heart rate 81 /min 81 /min [facility] Diastolic blood 71 mm[Hg] 71 mm[Hg] [facility] Systolic blood 128 mm[Hg] 128 mm[Hg] [facility] Body temperature 36.984555 Kaylie 36.554907 Kaylie [facility] Respiratory rate 17 /min 17 /min [facility] Oxygen 95 % 95 % [place] saturation in Medical Arterial blood Center by Pulse oximetry Heart rate 101 /min 101 /min [facility] Diastolic blood 78 mm[Hg] 78 mm[Hg] [facility] Systolic blood 128 mm[Hg] 128 mm[Hg] [facility] Body temperature 41.418235 Kaylie 41.548005 Kaylie [facility] Respiratory rate 18 /min 18 /min [facility] Oxygen 92 % 92 % [place] saturation in Medical Arterial blood Center by Pulse oximetry Heart rate 117 /min 117 /min [facility] Diastolic blood 77 mm[Hg] 77 mm[Hg] [facility] Systolic blood 130 mm[Hg] 130 mm[Hg] [facility] Body temperature 37.863185 Kaylie 37.462719 Kaylie [facility] Respiratory rate 18 /min 18 /min [facility] Oxygen 98 % 98 % [place] saturation in Medical Arterial blood Center by Pulse oximetry Heart rate 89 /min 89 /min [facility] Diastolic blood 85 mm[Hg] 85 mm[Hg] [facility] Systolic blood 142 mm[Hg] 142 mm[Hg] [facility] Body weight 110.123168 kg 110.751655 kg [facility] Body temperature 36.051905 Kaylie 36.510591 Kaylie [facility] Respiratory rate 18 /min 18 /min [facility] Oxygen 98 % 98 % [place] saturation in Medical Arterial blood Center by Pulse oximetry Heart rate 88 /min 88 /min [facility] Body height 182.896986 cm 182.472853 cm [facility] Diastolic blood 98 mm[Hg] 98 mm[Hg] [facility] Center Systolic blood 138 mm[Hg] 138 mm[Hg] [facility] Body mass index 32.8 kg/m2 32.8 kg/m2 [facility] (BMI) [Ratio] Medical Center Body temperature 36.712211 Kaylie 36.941669 Kaylie [facility] Respiratory rate 17 /min 17 /min [facility] Oxygen 95 % 95 % [place] saturation in Medical Arterial blood Center by Pulse oximetry Heart rate 96 /min 96 /min [facility] Diastolic blood 74 mm[Hg] 74 mm[Hg] [facility] Center Systolic blood 126 mm[Hg] 126 mm[Hg] [facility] Body temperature 36.255239 Kaylie 36.537191 Kaylie [facility] Respiratory rate 18 /min 18 /min [facility] Oxygen 100 % 100 % [place] saturation in Medical Arterial blood Center by Pulse oximetry Heart rate 85 /min 85 /min [facility] Diastolic blood 80 mm[Hg] 80 mm[Hg] [facility] Systolic blood 146 mm[Hg] 146 mm[Hg] [facility] Body temperature 36.578098 Kaylie 36.228978 Kaylie [facility] Respiratory rate 18 /min 18 /min [facility] Oxygen 98 % 98 % [facility] saturation in Medical Arterial blood Center by Pulse oximetry Heart rate 80 /min 80 /min [facility] Diastolic blood 60 mm[Hg] 60 mm[Hg] [facility] Systolic blood 96 mm[Hg] 96 mm[Hg] [facility] Body temperature 36.161719 Kaylie 36.918558 Kaylie [facility] Respiratory rate 18 /min 18 /min [facility] Oxygen 98 % 98 % [place] saturation in Medical Arterial blood Center by Pulse oximetry Heart rate 83 /min 83 /min [facility] Diastolic blood 68 mm[Hg] 68 mm[Hg] [facility] Systolic blood 128 mm[Hg] 128 mm[Hg] [facility] Body mass index 29.8 kg/m2 29.8 kg/m2 [facility] (BMI) [Ratio] Medical Center Body weight 100.142074 kg 100.862964 kg [facility] Body temperature 36.359706 Kaylie 36.570340 Kaylie [facility] Respiratory rate 18 /min 18 /min [facility] Oxygen 98 % 98 % [place] saturation in Medical Arterial blood Center by Pulse oximetry Heart rate 84 /min 84 /min [facility] Body height 182.402202 cm 182.008284 cm [facility] Diastolic blood 88 mm[Hg] 88 mm[Hg] [facility] Systolic blood 148 mm[Hg] 148 mm[Hg] [facility] Body temperature 36.934641 Kaylie 36.276450 Kaylie [facility] Respiratory rate 17 /min 17 /min [facility] Oxygen 99 % 99 % [place] saturation in Medical Arterial blood Center by Pulse oximetry Heart rate 80 /min 80 /min [facility] Diastolic blood 79 mm[Hg] 79 mm[Hg] [facility] Systolic blood 126 mm[Hg] 126 mm[Hg] [facility] Body temperature 36.045232 Kaylie 36.470607 Kaylie [facility] Respiratory rate 17 /min 17 /min [facility] Oxygen 99 % 99 % [place] saturation in Medical Arterial blood Center by Pulse oximetry Heart rate 85 /min 85 /min [facility] Diastolic blood 74 mm[Hg] 74 mm[Hg] [facility] Center Systolic blood 136 mm[Hg] 136 mm[Hg] [facility] Body temperature 36.957789 Kaylie 36.826696 Kaylie [facility] Respiratory rate 18 /min 18 /min [facility] Oxygen 98 % 98 % [place] saturation in Medical Arterial blood Center by Pulse oximetry Heart rate 97 /min 97 /min [facility] Diastolic blood 70 mm[Hg] 70 mm[Hg] [facility] Systolic blood 126 mm[Hg] 126 mm[Hg] [facility] Body temperature 36.800417 Kaylie 36.932482 Kaylie [facility] Respiratory rate 19 /min 19 /min [facility] Oxygen 97 % 97 % [place] saturation in Medical Arterial blood Center by Pulse oximetry Heart rate 79 /min 79 /min [facility] Diastolic blood 78 mm[Hg] 78 mm[Hg] [facility] Systolic blood 135 mm[Hg] 135 mm[Hg] [facility] Respiratory rate 18 /min 18 /min [facility] Oxygen 93 % 93 % [place] saturation in Medical Arterial blood Center by Pulse oximetry Heart rate 89 /min 89 /min [facility] Body height 177.073389 cm 177.033720 cm [facility] Diastolic blood 75 mm[Hg] 75 mm[Hg] [facility] Systolic blood 104 mm[Hg] 104 mm[Hg] [facility] [facility] [place] Body mass index 37.9 kg/m2 37.9 kg/m2 [facility] (BMI) [Ratio] [facility] Body weight 120.156979 kg 120.660800 kg [facility] Body temperature 36.190768 Kaylie 36.653890 Kaylie [facility] Body temperature 36.102479 Kaylie 36.486726 Kaylie [facility] Respiratory rate 17 /min 17 /min [facility] Oxygen 95 % 95 % [place] saturation in Medical Arterial blood Center by Pulse oximetry Heart rate 94 /min 94 /min [facility] Diastolic blood 62 mm[Hg] 62 mm[Hg] [facility] pressure Medical Center Systolic blood 115 mm[Hg] 115 mm[Hg] [facility] Body temperature 36.168137 Kaylie 36.841977 Kaylie [facility] Respiratory rate 18 /min 18 /min [facility] Oxygen 96 % 96 % [facility] [place] saturation in Medical Arterial blood Center by Pulse oximetry Heart rate 91 /min 91 /min [facility] Diastolic blood 77 mm[Hg] 77 mm[Hg] [facility] Systolic blood 131 mm[Hg] 131 mm[Hg] [facility] Body temperature 37.589703 Kaylie 37.497416 Kaylie [facility] Respiratory rate 19 /min 19 /min [facility] Oxygen 97 % 97 % [place] saturation in Medical Arterial blood Center by Pulse oximetry Heart rate 105 /min 105 /min [facility] Diastolic blood 74 mm[Hg] 74 mm[Hg] [facility] [place] Systolic blood 122 mm[Hg] 122 mm[Hg] [facility] Body temperature 37.936942 Kaylie 37.222708 Kaylie [facility] Respiratory rate 20 /min 20 /min [facility] Oxygen 93 % 93 % [place] saturation in Medical Arterial blood Center by Pulse oximetry Heart rate 117 /min 117 /min [facility] Diastolic blood 58 mm[Hg] 58 mm[Hg] [facility] Systolic blood 108 mm[Hg] 108 mm[Hg] [facility] Body temperature 36.982421 Kaylie 36.843983 Kaylie [facility] Oxygen 90 % 90 % [place] saturation in Medical Arterial blood Center by Pulse oximetry Heart rate 112 /min 112 /min [facility] Diastolic blood 54 mm[Hg] 54 mm[Hg] [facility] pressure [facility] Center Systolic blood 117 mm[Hg] 117 mm[Hg] [facility] Body weight 117.698607 kg 117.986206 kg [facility] Body temperature 36.137855 Kaylie 36.576620 Kaylie [facility] Respiratory rate 18 /min 18 /min [facility] Oxygen 99 % 99 % [facility] [place] saturation in Medical Arterial blood Center by Pulse oximetry Heart rate 89 /min 89 /min [facility] Body height 182.610023 cm 182.110172 cm [facility] Diastolic blood 84 mm[Hg] 84 mm[Hg] [facility] pressure [facility] Center Systolic blood 142 mm[Hg] 142 mm[Hg] [facility] Body mass index 35.2 kg/m2 35.2 kg/m2 [facility] (BMI) [Ratio] [facility] Body temperature 36.502595 Kaylie 36.089643 Kaylie [facility] Respiratory rate 16 /min 16 /min [facility] Oxygen 98 % 98 % [place] saturation in Medical Arterial blood Center by Pulse oximetry Heart rate 79 /min 79 /min [facility] Diastolic blood 94 mm[Hg] 94 mm[Hg] [facility] Systolic blood 149 mm[Hg] 149 mm[Hg] [facility] Body temperature 36.907405 Kaylie 36.276755 Kaylie [facility] Respiratory rate 16 /min 16 /min [facility] Oxygen 95 % 95 % [facility] [place] saturation in Medical Arterial blood Center by Pulse oximetry Heart rate 83 /min 83 /min [facility] Diastolic blood 74 mm[Hg] 74 mm[Hg] [facility] Systolic blood 156 mm[Hg] 156 mm[Hg] [facility] Body temperature 36.999901 Kaylie 36.425069 Kaylie [facility] Respiratory rate 20 /min 20 /min [facility] Oxygen 96 % 96 % [place] saturation in Medical Arterial blood Center by Pulse oximetry Heart rate 85 /min 85 /min [facility] Diastolic blood 83 mm[Hg] 83 mm[Hg] [facility] Systolic blood 142 mm[Hg] 142 mm[Hg] [facility] Body temperature 36.020099 Kaylie 36.376773 Kaylie [facility] Respiratory rate 20 /min 20 /min [facility] Oxygen 97 % 97 % [place] saturation in Medical Arterial blood Center by Pulse oximetry Heart rate 107 /min 107 /min [facility] Diastolic blood 104 mm[Hg] 104 mm[Hg] [facility] pressure [facility] Center Systolic blood 164 mm[Hg] 164 mm[Hg] [facility] Body temperature 36.725141 Kaylie 36.542036 Kaylie [facility] Respiratory rate 20 /min 20 /min [facility] Oxygen 97 % 97 % [place] saturation in Medical Arterial blood Center by Pulse oximetry Heart rate 90 /min 90 /min [facility] Diastolic blood 78 mm[Hg] 78 mm[Hg] [facility] pressure Medical Center Systolic blood 140 mm[Hg] 140 mm[Hg] [facility] Body weight 99.722835 kg 99.349976 kg [facility] Body temperature 36.076366 Kaylie 36.153847 Kaylie [facility] Respiratory rate 17 /min 17 /min [facility] Oxygen 95 % 95 % [place] saturation in Medical Arterial blood Center by Pulse oximetry Heart rate 92 /min 92 /min [facility] Body height 177.684451 cm 177.820127 cm [facility] Diastolic blood 78 mm[Hg] 78 mm[Hg] [facility] pressure [facility] Center Systolic blood 138 mm[Hg] 138 mm[Hg] [facility] Body mass index 31.5 kg/m2 31.5 kg/m2 [facility] (BMI) [Ratio] [facility] Body temperature 36.490503 Kaylie 36.444228 Kaylie [facility] Respiratory rate 17 /min 17 /min [facility] Oxygen 98 % 98 % [place] saturation in Medical Arterial blood Center by Pulse oximetry Heart rate 75 /min 75 /min [facility] Diastolic blood 68 mm[Hg] 68 mm[Hg] [facility] pressure [facility] Center Systolic blood 129 mm[Hg] 129 mm[Hg] [facility] Body temperature 36.543563 Kaylie 36.013955 Kaylie [facility] Respiratory rate 17 /min 17 /min [facility] Oxygen 99 % 99 % [place] saturation in Medical Arterial blood Center by Pulse oximetry Heart rate 81 /min 81 /min [facility] Diastolic blood 79 mm[Hg] 79 mm[Hg] [facility] pressure [facility] Center Systolic blood 143 mm[Hg] 143 mm[Hg] [facility] Body temperature 36.578059 Kaylie 36.583883 Kaylie [facility] Respiratory rate 17 /min 17 /min [facility] Oxygen 99 % 99 % [place] saturation in Medical Arterial blood Center by Pulse oximetry Heart rate 88 /min 88 /min [facility] Diastolic blood 76 mm[Hg] 76 mm[Hg] [facility] pressure [facility] Center Systolic blood 145 mm[Hg] 145 mm[Hg] [facility] [place] Body temperature 36.577836 Kaylie 36.274017 Kaylie [facility] Respiratory rate 18 /min 18 /min [facility] Oxygen 98 % 98 % [place] saturation in Medical Arterial blood Center by Pulse oximetry Heart rate 76 /min 76 /min [facility] Diastolic blood 75 mm[Hg] 75 mm[Hg] [facility] [place] Systolic blood 122 mm[Hg] 122 mm[Hg] [facility] [place] Body temperature 37.548419 Kaylie 37.708531 Kaylie [facility] Respiratory rate 18 /min 18 /min [facility] Oxygen 97 % 97 % [place] saturation in Medical Arterial blood Center by Pulse oximetry Heart rate 89 /min 89 /min [facility] Diastolic blood 78 mm[Hg] 78 mm[Hg] [facility] Systolic blood 146 mm[Hg] 146 mm[Hg] [facility] Body temperature 36.541357 Kaylie 36.076344 Kaylie [facility] Respiratory rate 18 /min 18 /min [facility] Oxygen 98 % 98 % [place] saturation in Medical Arterial blood Center by Pulse oximetry Heart rate 82 /min 82 /min [facility] Diastolic blood 80 mm[Hg] 80 mm[Hg] [facility] Systolic blood 134 mm[Hg] 134 mm[Hg] [facility] Body temperature 37.347675 Kaylie 37.444731 Kaylie [facility] Respiratory rate 18 /min 18 /min [facility] Oxygen 99 % 99 % [facility] saturation in Medical Arterial blood Center by Pulse oximetry Heart rate 86 /min 86 /min [facility] Diastolic blood 85 mm[Hg] 85 mm[Hg] [facility] pressure [facility] Center Systolic blood 142 mm[Hg] 142 mm[Hg] [facility] Body weight 119.024391 kg 119.862411 kg [facility] Body temperature 36.177606 Kaylie 36.973080 Kaylie [facility] Respiratory rate 18 /min 18 /min [facility] Oxygen 97 % 97 % [facility] saturation in Medical Arterial blood Center by Pulse oximetry Heart rate 83 /min 83 /min [facility] Diastolic blood 69 mm[Hg] 69 mm[Hg] [facility] Center Systolic blood 115 mm[Hg] 115 mm[Hg] [facility] Body weight 120.463285 kg 120.796637 kg [facility] Body temperature 37.132898 Kaylie 37.056392 Kaylie [facility] Respiratory rate 18 /min 18 /min [facility] Oxygen 98 % 98 % [facility] saturation in Medical Arterial blood Center by Pulse oximetry Heart rate 88 /min 88 /min [facility] Body height 182.894099 cm 182.075358 cm [facility] Diastolic blood 88 mm[Hg] 88 mm[Hg] [facility] pressure [facility] Center Systolic blood 148 mm[Hg] 148 mm[Hg] [facility] Body mass index 35.8 kg/m2 35.8 kg/m2 [facility] (BMI) [Ratio] [facility] Body temperature 36.698013 Kaylie 36.758865 Kaylie [facility] Respiratory rate 17 /min 17 /min [facility] Oxygen 97 % 97 % [facility] saturation in Medical Arterial blood Center by Pulse oximetry Heart rate 75 /min 75 /min [facility] Diastolic blood 71 mm[Hg] 71 mm[Hg] [facility] Systolic blood 145 mm[Hg] 145 mm[Hg] [facility] Body temperature 36.723180 Kaylie 36.530458 Kaylie [facility] Respiratory rate 19 /min 19 /min [facility] Oxygen 97 % 97 % [place] saturation in Medical Arterial blood Center by Pulse oximetry Heart rate 88 /min 88 /min [facility] Diastolic blood 76 mm[Hg] 76 mm[Hg] [facility] pressure [facility] Center Systolic blood 150 mm[Hg] 150 mm[Hg] [facility] Body temperature 36.388997 Kaylie 36.454720 Kaylie [facility] Respiratory rate 17 /min 17 /min [facility] Oxygen 98 % 98 % [place] saturation in Medical Arterial blood Center by Pulse oximetry Heart rate 71 /min 71 /min [facility] Diastolic blood 68 mm[Hg] 68 mm[Hg] [facility] pressure [facility] Center Systolic blood 129 mm[Hg] 129 mm[Hg] [facility] Body temperature 36.693351 Kaylie 36.022146 Kaylie [facility] Respiratory rate 17 /min 17 /min [facility] Oxygen 97 % 97 % [place] saturation in Medical Arterial blood Center by Pulse oximetry Heart rate 75 /min 75 /min [facility] Diastolic blood 62 mm[Hg] 62 mm[Hg] [facility] pressure [facility] Center Systolic blood 133 mm[Hg] 133 mm[Hg] [facility] [place] Body temperature 36.585955 Kaylie 36.227412 Kaylie [facility] Respiratory rate 17 /min 17 /min [facility] Oxygen 99 % 99 % [place] saturation in Medical Arterial blood Center by Pulse oximetry Heart rate 80 /min 80 /min [facility] Diastolic blood 92 mm[Hg] 92 mm[Hg] [facility] pressure [facility] Center Systolic blood 144 mm[Hg] 144 mm[Hg] [facility] Body temperature 36.714786 Kaylie 36.565559 Kaylie [facility] Respiratory rate 18 /min 18 /min [facility] Oxygen 97 % 97 % [place] saturation in Medical Arterial blood Center by Pulse oximetry Heart rate 89 /min 89 /min [facility] Diastolic blood 88 mm[Hg] 88 mm[Hg] [facility] pressure [facility] Center Systolic blood 148 mm[Hg] 148 mm[Hg] [facility] Body temperature 36.441850 Kaylie 36.317888 Kaylie [facility] Respiratory rate 17 /min 17 /min [facility] Oxygen 97 % 97 % [place] saturation in Medical Arterial blood Center by Pulse oximetry Heart rate 81 /min 81 /min [facility] Diastolic blood 79 mm[Hg] 79 mm[Hg] [facility] Systolic blood 133 mm[Hg] 133 mm[Hg] [facility] Body temperature 36.485956 Kaylie 36.471132 Kaylie [facility] Respiratory rate 17 /min 17 /min [facility] Oxygen 98 % 98 % [place] saturation in Medical Arterial blood Center by Pulse oximetry Heart rate 87 /min 87 /min [facility] Diastolic blood 88 mm[Hg] 88 mm[Hg] [facility] Systolic blood 136 mm[Hg] 136 mm[Hg] [facility] [place] Body temperature 36.954927 Kaylie 36.878022 Kaylie [facility] Respiratory rate 18 /min 18 /min [facility] Oxygen 97 % 97 % [place] saturation in Medical Arterial blood Center by Pulse oximetry Heart rate 95 /min 95 /min [facility] Diastolic blood 84 mm[Hg] 84 mm[Hg] [facility] pressure [facility] Center Systolic blood 149 mm[Hg] 149 mm[Hg] [facility] Body temperature 36.311836 Kaylie 36.505753 Kaylie [facility] Respiratory rate 17 /min 17 /min [facility] Oxygen 99 % 99 % [place] saturation in Medical Arterial blood Center by Pulse oximetry Heart rate 81 /min 81 /min [facility] Diastolic blood 76 mm[Hg] 76 mm[Hg] [facility] Systolic blood 124 mm[Hg] 124 mm[Hg] [facility] Body weight 110.205147 kg 110.356998 kg [facility] [place] Body temperature 36.891002 Kaylie 36.449759 Kaylie [facility] Respiratory rate 18 /min 18 /min [facility] Oxygen 98 % 98 % [place] saturation in Medical Arterial blood Center by Pulse oximetry Heart rate 78 /min 78 /min [facility] Body height 185.059628 cm 185.137868 cm [facility] Diastolic blood 78 mm[Hg] 78 mm[Hg] [facility] Systolic blood 138 mm[Hg] 138 mm[Hg] [facility] Body mass index 31.9 kg/m2 31.9 kg/m2 [facility] (BMI) [Ratio] [facility] Body weight 113.414174 kg 113.267461 kg [facility] Body temperature 37.424605 Kaylie 37.387327 Kaylie [facility] Respiratory rate 18 /min 18 /min [facility] Oxygen 100 % 100 % [place] saturation in Medical Arterial blood Center by Pulse oximetry Heart rate 95 /min 95 /min [facility] Body height 175.511903 cm 175.914179 cm [facility] Diastolic blood 83 mm[Hg] 83 mm[Hg] [facility] Systolic blood 148 mm[Hg] 148 mm[Hg] [facility] Body mass index 36.9 kg/m2 36.9 kg/m2 [facility] (BMI) [Ratio] [facility] Body weight 105.908667 kg 105.181409 kg [facility] Body temperature 36.246169 Kaylie 36.233214 Kaylie [facility] Respiratory rate 18 /min 18 /min [facility] Oxygen 93 % 93 % [place] saturation in Medical Arterial blood Center by Pulse oximetry Heart rate 88 /min 88 /min [facility] Body height 173.511125 cm 173.818972 cm [facility] Diastolic blood 88 mm[Hg] 88 mm[Hg] [facility] Center Systolic blood 140 mm[Hg] 140 mm[Hg] [facility] Body mass index 35.0 kg/m2 35.0 kg/m2 [facility] (BMI) [Ratio] [facility] Body temperature 37.449701 Kaylie 37.937532 Kaylie [facility] Respiratory rate 18 /min 18 /min [facility] Oxygen 95 % 95 % [place] saturation in Medical Arterial blood Center by Pulse oximetry Heart rate 97 /min 97 /min [facility] Diastolic blood 78 mm[Hg] 78 mm[Hg] [facility] Systolic blood 132 mm[Hg] 132 mm[Hg] [facility] Body temperature 37.720713 Kaylie 37.639876 Kaylie [facility] Respiratory rate 18 /min 18 /min [facility] Oxygen 95 % 95 % [place] saturation in Medical Arterial blood Center by Pulse oximetry Heart rate 96 /min 96 /min [facility] Diastolic blood 77 mm[Hg] 77 mm[Hg] [facility] Systolic blood 129 mm[Hg] 129 mm[Hg] [facility] Systolic blood 101 mm[Hg] 101 mm[Hg] [facility] Body temperature 37.365748 Kaylie 37.862835 Kaylie [facility] Respiratory rate 17 /min 17 /min [facility] Oxygen 95 % 95 % [place] saturation in Medical Arterial blood Center by Pulse oximetry Heart rate 96 /min 96 /min [facility] Diastolic blood 57 mm[Hg] 57 mm[Hg] [facility] Body temperature 36.925180 Kaylie 36.717007 Kaylie [facility] Respiratory rate 17 /min 17 /min [facility] Oxygen 98 % 98 % [place] saturation in Medical Arterial blood Center by Pulse oximetry Heart rate 71 /min 71 /min [facility] Diastolic blood 68 mm[Hg] 68 mm[Hg] [facility] Systolic blood 137 mm[Hg] 137 mm[Hg] [facility] Body temperature 36.878166 Kaylie 36.417213 Kaylie [facility] Respiratory rate 17 /min 17 /min [facility] Oxygen 98 % 98 % [place] saturation in Medical Arterial blood Center by Pulse oximetry Heart rate 73 /min 73 /min [facility] Diastolic blood 62 mm[Hg] 62 mm[Hg] [facility] Systolic blood 133 mm[Hg] 133 mm[Hg] [facility] Body temperature 36.386917 Kaylie 36.713509 Kaylie [facility] Respiratory rate 18 /min 18 /min [facility] Oxygen 99 % 99 % [place] saturation in Medical Arterial blood Center by Pulse oximetry Heart rate 78 /min 78 /min [facility] Diastolic blood 81 mm[Hg] 81 mm[Hg] [facility] pressure [facility] Center Systolic blood 158 mm[Hg] 158 mm[Hg] [facility] Body weight 150.000012 kg 150.686617 kg [facility] Body temperature 36.587105 Kaylie 36.444076 Kaylie [facility] Respiratory rate 16 /min 16 /min [facility] Oxygen 98 % 98 % [place] saturation in Medical Arterial blood Center by Pulse oximetry Heart rate 93 /min 93 /min [facility] Body height 177.538893 cm 177.741606 cm [facility] Diastolic blood 92 mm[Hg] 92 mm[Hg] [facility] pressure [facility] Center Systolic blood 140 mm[Hg] 140 mm[Hg] [facility] Body mass index 47.4 kg/m2 47.4 kg/m2 [facility] (BMI) [Ratio] [facility] Body weight 68.788466 kg 68.744607 kg [facility] Body temperature 36.151640 Kaylie 36.731318 Kaylie [facility] Respiratory rate 18 /min 18 /min [facility] Oxygen 93 % 93 % [place] saturation in Medical Arterial blood Center by Pulse oximetry Heart rate 93 /min 93 /min [facility] Diastolic blood 87 mm[Hg] 87 mm[Hg] [facility] Systolic blood 160 mm[Hg] 160 mm[Hg] [facility] Body temperature 36.100883 Kaylie 36.860991 Kaylie [facility] Respiratory rate 19 /min 19 /min [facility] Oxygen 97 % 97 % [place] saturation in Medical Arterial blood Center by Pulse oximetry Heart rate 88 /min 88 /min [facility] Diastolic blood 80 mm[Hg] 80 mm[Hg] [facility] pressure [facility] Center Systolic blood 150 mm[Hg] 150 mm[Hg] [facility] Body temperature 36.281839 Kaylie 36.555826 Kaylie [facility] Respiratory rate 17 /min 17 /min [facility] Oxygen 97 % 97 % [place] saturation in Medical Arterial blood Center by Pulse oximetry Heart rate 75 /min 75 /min [facility] Diastolic blood 68 mm[Hg] 68 mm[Hg] [facility] Systolic blood 134 mm[Hg] 134 mm[Hg] [facility] Body temperature 36.562641 Kaylie 36.876635 Kaylie [facility] Respiratory rate 18 /min 18 /min [facility] Oxygen 96 % 96 % [place] saturation in Medical Arterial blood Center by Pulse oximetry Heart rate 85 /min 85 /min [facility] Diastolic blood 82 mm[Hg] 82 mm[Hg] [facility] [place] Systolic blood 138 mm[Hg] 138 mm[Hg] [facility] [place] Body temperature 36.651794 Kaylie 36.212663 Kaylie [facility] Respiratory rate 18 /min 18 /min [facility] Oxygen 97 % 97 % [place] saturation in Medical Arterial blood Center by Pulse oximetry Heart rate 88 /min 88 /min [facility] Diastolic blood 72 mm[Hg] 72 mm[Hg] [facility] [place] Systolic blood 137 mm[Hg] 137 mm[Hg] [facility] Body temperature 37.287955 Kaylie 37.103073 Kaylie [facility] Respiratory rate 18 /min 18 /min [facility] Oxygen 93 % 93 % [place] saturation in Medical Arterial blood Center by Pulse oximetry Heart rate 94 /min 94 /min [facility] Diastolic blood 70 mm[Hg] 70 mm[Hg] [facility] [place] Systolic blood 132 mm[Hg] 132 mm[Hg] [facility] Body temperature 36.355799 Kaylie 36.810687 Kaylie [facility] Respiratory rate 18 /min 18 /min [facility] Oxygen 97 % 97 % [place] saturation in Medical Arterial blood Center by Pulse oximetry Heart rate 76 /min 76 /min [place] [facility] Di[facility] blood 76 mm[Hg] 76 mm[Hg] [facility] Systolic blood 144 mm[Hg] 144 mm[Hg] [facility] Body temperature 36.143007 Kaylie 36.681104 Kaylie [facility] Respiratory rate 19 /min 19 /min [facility] Oxygen 97 % 97 % [facility] saturation in Medical Arterial blood Center by Pulse oximetry Heart rate 77 /min 77 /min [facility] Diastolic blood 86 mm[Hg] 86 mm[Hg] [facility] pressure [facility] Center Systolic blood 153 mm[Hg] 153 mm[Hg] [facility] [place] Body temperature 36.305845 Kaylie 36.003231 Kaylie [facility] Respiratory rate 17 /min 17 /min [facility] Oxygen 98 % 98 % [facility] saturation in Medical Arterial blood Center by Pulse oximetry Heart rate 75 /min 75 /min [facility] Diastolic blood 75 mm[Hg] 75 mm[Hg] [facility] [place] Systolic blood 129 mm[Hg] 129 mm[Hg] [facility] [place] Body temperature 37.537860 Kaylie 37.501572 Kaylie [facility] Respiratory rate 18 /min 18 /min [facility] Oxygen 97 % 97 % [place] saturation in Medical Arterial blood Center by Pulse oximetry Heart rate 76 /min 76 /min [facility] Diastolic blood 77 mm[Hg] 77 mm[Hg] [facility] [place] Systolic blood 130 mm[Hg] 130 mm[Hg] [facility] [place] Body temperature 36.922948 Kaylie 36.128809 Kaylie [facility] Respiratory rate 17 /min 17 /min [facility] Oxygen 98 % 98 % [facility] saturation in Medical Arterial blood Center by Pulse oximetry Heart rate 78 /min 78 /min [facility] Diastolic blood 68 mm[Hg] 68 mm[Hg] [facility] Systolic blood 129 mm[Hg] 129 mm[Hg] [facility] Body temperature 36.334971 Kaylie 36.474254 Kaylie [facility] Respiratory rate 19 /min 19 /min [facility] Oxygen 98 % 98 % [facility] saturation in Medical Arterial blood Center by Pulse oximetry Heart rate 92 /min 92 /min [facility] Diastolic blood 64 mm[Hg] 64 mm[Hg] [facility] [place] Systolic blood 125 mm[Hg] 125 mm[Hg] [facility] Body temperature 36.724885 Kaylie 36.469862 Kaylie [facility] Respiratory rate 20 /min 20 /min [facility] Oxygen 98 % 98 % [facility] [place] saturation in Medical Arterial blood Center by Pulse oximetry Heart rate 93 /min 93 /min [facility] Diastolic blood 92 mm[Hg] 92 mm[Hg] [facility] Center Systolic blood 150 mm[Hg] 150 mm[Hg] [facility] Body temperature 36.653667 Kaylie 36.167005 Kaylie [facility] Respiratory rate 18 /min 18 /min [facility] Oxygen 97 % 97 % [facility] [place] saturation in Medical Arterial blood Center by Pulse oximetry Heart rate 79 /min 79 /min [facility] Diastolic blood 78 mm[Hg] 78 mm[Hg] [facility] Center Systolic blood 138 mm[Hg] 138 mm[Hg] [facility] [place] Body temperature 36.818497 Kaylie 36.380787 Kaylie [facility] Respiratory rate 17 /min 17 /min [facility] Oxygen 95 % 95 % [facility] [place] saturation in Medical Arterial blood Center by Pulse oximetry Heart rate 72 /min 72 /min [facility] Diastolic blood 67 mm[Hg] 67 mm[Hg] [facility] Systolic blood 134 mm[Hg] 134 mm[Hg] [facility] [place] Body temperature 36.496669 Kaylie 36.465417 Kaylie [facility] Respiratory rate 19 /min 19 /min [facility] Oxygen 95 % 95 % [facility] saturation in Medical Arterial blood Center by Pulse oximetry Heart rate 68 /min 68 /min [facility] Diastolic blood 68 mm[Hg] 68 mm[Hg] [facility] Systolic blood 144 mm[Hg] 144 mm[Hg] [facility] Body temperature 36.000429 Kaylie 36.011847 Kaylie [facility] Respiratory rate 17 /min 17 /min [facility] Oxygen 96 % 96 % [facility] [place] saturation in Medical Arterial blood Center by Pulse oximetry Heart rate 78 /min 78 /min [facility] Diastolic blood 76 mm[Hg] 76 mm[Hg] [facility] Systolic blood 140 mm[Hg] 140 mm[Hg] [facility] Body weight 99.504063 kg 99.399413 [facility] 36.993395 Kaylie 36.563897 Kaylie [facility] Respiratory rate 19 /min 19 /min [facility] Oxygen 98 % 98 % [facility] saturation in Medical Arterial blood Center by Pulse oximetry Heart rate 88 /min 88 /min [facility] Body height 177.361008 cm 177.799044 cm [facility] Diastolic blood 82 mm[Hg] 82 mm[Hg] [facility] Systolic blood 148 mm[Hg] 148 mm[Hg] [facility] Body mass index 31.5 kg/m2 31.5 kg/m2 [facility] (BMI) [Ratio] [facility] Body temperature 36.489361 Kaylie 36.091388 Kaylie [facility] Respiratory rate 17 /min 17 /min [facility] Oxygen 98 % 98 % [place] saturation in Medical Arterial blood Center by Pulse oximetry Heart rate 94 /min 94 /min [facility] Diastolic blood 90 mm[Hg] 90 mm[Hg] [facility] Systolic blood 160 mm[Hg] 160 mm[Hg] [facility] Respiratory rate 18 /min 18 /min [facility] Oxygen 98 % 98 % [place] saturation in Medical Arterial blood Center by Pulse oximetry Heart rate 85 /min 85 /min [facility] Diastolic blood 85 mm[Hg] 85 mm[Hg] [facility] Systolic blood 142 mm[Hg] 142 mm[Hg] [facility] Body temperature 37.946651 Kaylie 37.880152 Kaylie [facility] Body weight 110.928321 kg 110.990266 kg [facility] Body temperature 36.814147 Kaylie 36.794017 Kaylie [facility] Respiratory rate 18 /min 18 /min [facility] Oxygen 98 % 98 % [place] saturation in Medical Arterial blood Center by Pulse oximetry Heart rate 84 /min 84 /min [facility] Body height 182.966095 cm 182.950377 cm [facility] Diastolic blood 58 mm[Hg] 58 mm[Hg] [facility] Systolic blood 148 mm[Hg] 148 mm[Hg] [facility] Body mass index 32.8 kg/m2 32.8 kg/m2 [facility] (BMI) [Ratio] [facility] Body temperature 36.799239 Kaylie 36.901571 Kaylie [facility] Respiratory rate 18 /min 18 /min [facility] Oxygen 97 % 97 % [facility] [place] saturation in Medical Arterial blood Center by Pulse oximetry Heart rate 118 /min 118 /min [facility] Diastolic blood 58 mm[Hg] 58 mm[Hg] [facility] Systolic blood 120 mm[Hg] 120 mm[Hg] [facility] Body temperature 36.923944 Kaylie 36.076870 Kaylie [facility] Respiratory rate 20 /min 20 /min [facility] Oxygen 96 % 96 % [facility] [place] saturation in Medical Arterial blood Center by Pulse oximetry Heart rate 143 /min 143 /min [facility] Diastolic blood 40 mm[Hg] 40 mm[Hg] [facility] Systolic blood 119 mm[Hg] 119 mm[Hg] [facility] Respiratory rate 20 /min 20 /min [facility] Oxygen 98 % 98 % [facility] [place] saturation in Medical Arterial blood Center by Pulse oximetry Heart rate 92 /min 92 /min [facility] Diastolic blood 86 mm[Hg] 86 mm[Hg] [facility] Systolic blood 134 mm[Hg] 134 mm[Hg] [facility] Body temperature 36.058687 Kaylie 36.772715 Kaylie [facility] Respiratory rate 18 /min 18 /min [facility] Oxygen 98 % 98 % [facility] [place] saturation in Medical Arterial blood Center by Pulse oximetry Heart rate 87 /min 87 /min [facility] Diastolic blood 90 mm[Hg] 90 mm[Hg] [facility] Systolic blood 145 mm[Hg] 145 mm[Hg] [facility] Body temperature 36.012452 Kaylie 36.500223 Kaylie [facility] Respiratory rate 16 /min 16 /min [facility] Oxygen 97 % 97 % [facility] [place] saturation in Medical Arterial blood Center by Pulse oximetry Heart rate 85 /min 85 /min [facility] Diastolic blood 76 mm[Hg] 76 mm[Hg] [facility] Systolic blood 123 mm[Hg] 123 mm[Hg] [facility] Body temperature 36.381468 Kaylie 36.668473 Kaylie [facility] Body weight 125.033303 kg 125.559314 kg [facility] Body temperature 36.116807 Kaylie 36.622723 Kaylie [facility] Respiratory rate 20 /min 20 /min [facility] Oxygen 95 % 95 % [place] saturation in Medical Arterial blood Center by Pulse oximetry Heart rate 100 /min 100 /min [facility] Body height 177.769634 cm 177.375609 cm [facility] Diastolic blood 76 mm[Hg] 76 mm[Hg] [facility] [place] Systolic blood 124 mm[Hg] 124 mm[Hg] [facility] Body mass index 39.5 kg/m2 39.5 kg/m2 [facility] (BMI) [Ratio] [facility] Center Body temperature 36.397469 Kaylie 36.556016 Kaylie [facility] Respiratory rate 17 /min 17 /min [facility] Oxygen 96 % 96 % [facility] saturation in Medical Arterial blood Center by Pulse oximetry Heart rate 77 /min 77 /min [facility] Diastolic blood 71 mm[Hg] 71 mm[Hg] [facility] [place] Systolic blood 122 mm[Hg] 122 mm[Hg] [facility] Body temperature 37.588292 Kaylie 37.762466 Akylie [facility] Respiratory rate 19 /min 19 /min [facility] Oxygen 96 % 96 % [facility] [place] saturation in Medical Arterial blood Center by Pulse oximetry Heart rate 72 /min 72 /min [facility] Diastolic blood 64 mm[Hg] 64 mm[Hg] [facility] Systolic blood 140 mm[Hg] 140 mm[Hg] [facility] Body temperature 36.957618 Kaylie 36.470946 Kaylie [facility] Respiratory rate 18 /min 18 /min [facility] Oxygen 97 % 97 % [facility] [place] saturation in Medical Arterial blood Center by Pulse oximetry Heart rate 68 /min 68 /min [facility] Diastolic blood 86 mm[Hg] 86 mm[Hg] [facility] Systolic blood 135 mm[Hg] 135 mm[Hg] [facility] Body temperature 36.095437 Kaylie 36.166517 Kaylie [facility] Respiratory rate 18 /min 18 /min [facility] Oxygen 97 % 97 % [facility] [place] saturation in Medical Arterial blood Center by Pulse oximetry Heart rate 78 /min 78 /min [facility] Diastolic blood 69 mm[Hg] 69 mm[Hg] [facility] Center Systolic blood 134 mm[Hg] 134 mm[Hg] [facility] Body temperature 36.750203 Kaylie 36.747502 Kaylie [facility] Respiratory rate 18 /min 18 /min [facility] Oxygen 96 % 96 % [facility] [place] saturation in Medical Arterial blood Center by Pulse oximetry Heart rate 87 /min 87 /min [facility] Diastolic blood 80 mm[Hg] 80 mm[Hg] [facility] Systolic blood 135 mm[Hg] 135 mm[Hg] [facility] Heart rate 77 /min 77 /min [facility] Diastolic blood 77 mm[Hg] 77 mm[Hg] [facility] Systolic blood 142 mm[Hg] 142 mm[Hg] [facility] Body temperature 36.943220 Kaylie 36.240742 Kaylie [facility] Respiratory rate 18 /min 18 /min [facility] Oxygen 97 % 97 % [facility] [place] saturation in Medical Arterial blood Center by Pulse oximetry Body temperature 36.089062 Kaylie 36.103943 Kaylie [facility] Respiratory rate 18 /min 18 /min [facility] Oxygen 98 % 98 % [facility] [place] saturation in Medical Arterial blood Center by Pulse oximetry Heart rate 78 /min 78 /min [facility] Diastolic blood 80 mm[Hg] 80 mm[Hg] [facility] Systolic blood 124 mm[Hg] 124 mm[Hg] [facility] [place] Body temperature 36.078319 Kaylie 36.485003 Kaylie [facility] Respiratory rate 17 /min 17 /min [facility] Oxygen 96 % 96 % [facility] [place] saturation in Medical Arterial blood Center by Pulse oximetry Heart rate 80 /min 80 /min [facility] Diastolic blood 88 mm[Hg] 88 mm[Hg] [facility] Systolic blood 133 mm[Hg] 133 mm[Hg] [facility] Body temperature 36.532484 Kaylie 36.247508 Kaylie [facility] Respiratory rate 17 /min 17 /min [facility] Oxygen 99 % 99 % [facility] [place] saturation in Medical Arterial blood Center by Pulse oximetry Heart rate 80 /min 80 /min [facility] Diastolic blood 78 mm[Hg] 78 mm[Hg] [facility] Systolic blood 132 mm[Hg] 132 mm[Hg] [facility] Body weight 90.720838 kg 90.937261 kg [facility] Measured [facility] [place] Body height 177.306317 cm 177.735152 cm [facility] Body mass index 28.4 kg/m2 28.4 kg/m2 [facility] (BMI) [Ratio] [facility] Body temperature 36.132874 Kaylie 36.308052 Kaylie [facility] Respiratory rate 18 /min 18 /min [facility] Oxygen 96 % 96 % [facility] [place] saturation in Medical Arterial blood Center by Pulse oximetry Heart rate 90 /min 90 /min [facility] Diastolic blood 58 mm[Hg] 58 mm[Hg] [facility] Systolic blood 111 mm[Hg] 111 mm[Hg] [facility] Center Body temperature 36.341825 Kaylie 36.714107 Kaylie [facility] Respiratory rate 18 /min 18 /min [facility] Oxygen 95 % 95 % [facility] [place] saturation in Medical Arterial blood Center by Pulse oximetry Heart rate 94 /min 94 /min [facility] Diastolic blood 55 mm[Hg] 55 mm[Hg] [facility] Systolic blood 114 mm[Hg] 114 mm[Hg] [facility] Body weight 110.478891 kg 110.092821 kg [facility] Body temperature 37.116274 Kaylie 37.945792 Kaylie [facility] Respiratory rate 18 /min 18 /min [facility] Oxygen 98 % 98 % [facility] [place] saturation in Medical Arterial blood Center by Pulse oximetry Heart rate 88 /min 88 /min [facility] Body height 185.841955 cm 185.474257 cm [facility] Diastolic blood 78 mm[Hg] 78 mm[Hg] [facility] Systolic blood 143 mm[Hg] 143 mm[Hg] [facility] Body mass index 31.9 kg/m2 31.9 kg/m2 [facility] (BMI) [Ratio] [facility] Diastolic blood 79 mm[Hg] 79 mm[Hg] [facility] Systolic blood 122 mm[Hg] 122 mm[Hg] [facility] Body temperature 36.521267 Kaylie 36.385949 Kaylie [facility] Respiratory rate 18 /min 18 /min [facility] Oxygen 98 % 98 % [place] saturation in Medical Arterial blood Center by Pulse oximetry Heart rate 88 /min 88 /min [facility] Diastolic blood 51 mm[Hg] 51 mm[Hg] [facility] Systolic blood 81 mm[Hg] 81 mm[Hg] [facility] Body temperature 37.148976 Kaylie 37.032297 Kaylie [facility] Respiratory rate 18 /min 18 /min [facility] Oxygen 96 % 96 % [facility] [place] saturation in Medical Arterial blood Center by Pulse oximetry Heart rate 98 /min 98 /min [facility] Diastolic blood 90 mm[Hg] 90 mm[Hg] [facility] Systolic blood 148 mm[Hg] 148 mm[Hg] [facility] Body temperature 37.063674 Kaylie 37.808387 Kaylie [facility] Respiratory rate 18 /min 18 /min [facility] Oxygen 95 % 95 % [facility] [place] saturation in Medical Arterial blood Center by Pulse oximetry Heart rate 99 /min 99 /min [facility] Diastolic blood 79 mm[Hg] 79 mm[Hg] [facility] Systolic blood 132 mm[Hg] 132 mm[Hg] [facility] Body temperature 36.508123 Kaylie 36.613511 Kaylie [facility] Respiratory rate 18 /min 18 /min [facility] Oxygen 96 % 96 % [facility] [place] saturation in Medical Arterial blood Center by Pulse oximetry Heart rate 97 /min 97 /min [facility] Diastolic blood 64 mm[Hg] 64 mm[Hg] [facility] Systolic blood 118 mm[Hg] 118 mm[Hg] [facility] Body temperature 36.765723 Kaylie 36.921910 Kaylie [facility] Respiratory rate 18 /min 18 /min [facility] Oxygen 96 % 96 % [place] saturation in Medical Arterial blood Center by Pulse oximetry Heart rate 95 /min 95 /min [facility] Diastolic blood 68 mm[Hg] 68 mm[Hg] [facility] Systolic blood 127 mm[Hg] 127 mm[Hg] [facility] [place] Body temperature 37.145213 Kaylie 37.158836 Kaylie [facility] Respiratory rate 18 /min 18 /min [facility] Oxygen 95 % 95 % [place] saturation in Medical Arterial blood Center by Pulse oximetry Heart rate 94 /min 94 /min [facility] Diastolic blood 69 mm[Hg] 69 mm[Hg] [facility] [place] Systolic blood 115 mm[Hg] 115 mm[Hg] [facility] Body temperature 36.824657 Kaylie 36.170354 Kaylie [facility] Respiratory rate 17 /min 17 /min [facility] Oxygen 95 % 95 % [place] saturation in Medical Arterial blood Center by Pulse oximetry Heart rate 90 /min 90 /min [facility] Diastolic blood 60 mm[Hg] 60 mm[Hg] [facility] [place] Systolic blood 109 mm[Hg] 109 mm[Hg] [facility] [place] Body temperature 36.774225 Kaylie 36.963114 Kaylie [facility] Respiratory rate 16 /min 16 /min [facility] Heart rate 85 /min 85 /min [facility] Diastolic blood 73 mm[Hg] 73 mm[Hg] [facility] Systolic blood 140 mm[Hg] 140 mm[Hg] [facility] [place] Body temperature 36.805345 Kaylie 36.865116 Kaylie [facility] Respiratory rate 18 /min 18 /min [facility] Oxygen 95 % 95 % [place] saturation in Medical Arterial blood Center by Pulse oximetry Heart rate 90 /min 90 /min [facility] Diastolic blood 76 mm[Hg] 76 mm[Hg] [facility] Systolic blood 131 mm[Hg] 131 mm[Hg] [facility] Center Body temperature 36.235858 Kaylie 36.701598 Kaylie [facility] Respiratory rate 18 /min 18 /min [facility] Oxygen 94 % 94 % [facility] saturation in Medical Arterial blood Center by Pulse oximetry Heart rate 88 /min 88 /min [facility] Diastolic blood 74 mm[Hg] 74 mm[Hg] [facility] pressure [facility] Systolic blood 152 mm[Hg] 152 mm[Hg] [facility] Body temperature 36.789408 Kaylie 36.876494 Kaylie [facility] Respiratory rate 17 /min 17 /min [facility] Heart rate 99 /min 99 /min [facility] Diastolic blood 52 mm[Hg] 52 mm[Hg] [facility] Systolic blood 111 mm[Hg] 111 mm[Hg] [facility] [place] Body weight 79.794642 kg 79.332574 kg [facility] [place] Body temperature 36.560445 Kaylie 36.533866 Kaylie [facility] Respiratory rate 19 /min 19 /min [facility] Oxygen 95 % 95 % [facility] saturation in Medical Arterial blood Center by Pulse oximetry Heart rate 74 /min 74 /min [facility] Body height 170.632637 cm 170.282620 cm [facility] Diastolic blood 86 mm[Hg] 86 mm[Hg] [facility] pressure [facility] Systolic blood 152 mm[Hg] 152 mm[Hg] [facility] Center Body mass index 27.4 kg/m2 27.4 kg/m2 [facility] (BMI) [Ratio] [facility] Center Body temperature 36.498347 Kaylie 36.878808 Kaylie [facility] Respiratory rate 18 /min 18 /min [facility] Oxygen 98 % 98 % [facility] saturation in Medical Arterial blood Center by Pulse oximetry Heart rate 96 /min 96 /min [facility] Diastolic blood 78 mm[Hg] 78 mm[Hg] [facility] pressure [facility] Systolic blood 143 mm[Hg] 143 mm[Hg] [facility] Body temperature 36.838476 Kaylie 36.234172 Kaylie [facility] Respiratory rate 19 /min 19 /min [facility] Oxygen 96 % 96 % [facility] [place] saturation in Medical Arterial blood Center by Pulse oximetry Heart rate 105 /min 105 /min [facility] Diastolic blood 66 mm[Hg] 66 mm[Hg] [facility] Systolic blood 113 mm[Hg] 113 mm[Hg] [facility] Body temperature 36.513326 Kaylie 36.765421 Kaylie [facility] Respiratory rate 18 /min 18 /min [facility] Oxygen 96 % 96 % [facility] [place] saturation in Medical Arterial blood Center by Pulse oximetry Heart rate 92 /min 92 /min [facility] Diastolic blood 70 mm[Hg] 70 mm[Hg] [facility] pressure [facility] Systolic blood 128 mm[Hg] 128 mm[Hg] [facility] [place] Body temperature 36.180799 Kaylie 36.564779 Kaylie [facility] Respiratory rate 17 /min 17 /min [facility] Oxygen 97 % 97 % [facility] saturation in Medical Arterial blood Center by Pulse oximetry Heart rate 78 /min 78 /min [facility] Diastolic blood 78 mm[Hg] 78 mm[Hg] [facility] Systolic blood 138 mm[Hg] 138 mm[Hg] [facility] [place] Body temperature 36.379132 Kaylie 36.661368 Kaylie [facility] Respiratory rate 18 /min 18 /min [facility] Oxygen 95 % 95 % [facility] [place] saturation in Medical Arterial blood Center by Pulse oximetry Heart rate 90 /min 90 /min [facility] Diastolic blood 77 mm[Hg] 77 mm[Hg] [facility] Systolic blood 147 mm[Hg] 147 mm[Hg] [facility] [facility] [place] Body temperature 37.626911 Kaylie 37.991427 Kaylie [facility] Respiratory rate 18 /min 18 /min [facility] Oxygen 95 % 95 % [facility] [place] saturation in Medical Arterial blood Center by Pulse oximetry Heart rate 74 /min 74 /min [facility] Diastolic blood 65 mm[Hg] 65 mm[Hg] [facility] Systolic blood 127 mm[Hg] 127 mm[Hg] [facility] Body temperature 36.868575 Kaylie 36.581526 Kaylie [facility] Respiratory rate 18 /min 18 /min [facility] Oxygen 96 % 96 % [facility] [place] saturation in Medical Arterial blood Center by Pulse oximetry Heart rate 90 /min 90 /min [facility] Diastolic blood 60 mm[Hg] 60 mm[Hg] [facility] pressure Medical Center Systolic blood 131 mm[Hg] 131 mm[Hg] [facility] Body temperature 36.440322 Kaylie 36.083056 Kaylie [facility] Respiratory rate 17 /min 17 /min [facility] Oxygen 98 % 98 % [facility] [place] saturation in Medical Arterial blood Center by Pulse oximetry Heart rate 73 /min 73 /min [facility] Diastolic blood 75 mm[Hg] 75 mm[Hg] [facility] Systolic blood 139 mm[Hg] 139 mm[Hg] [facility] Body temperature 36.731464 Kaylie 36.013136 Kaylie [facility] Respiratory rate 18 /min 18 /min [facility] Oxygen 99 % 99 % [facility] [place] saturation in Medical Arterial blood Center by Pulse oximetry Heart rate 103 /min 103 /min [facility] Diastolic blood 43 mm[Hg] 43 mm[Hg] [facility] pressure Medical Center Systolic blood 117 mm[Hg] 117 mm[Hg] [facility] [place] Body temperature 37.544000 Kaylie 37.270625 Kaylie [facility] Respiratory rate 17 /min 17 /min [facility] Oxygen 95 % 95 % [facility] [place] saturation in Medical Arterial blood Center by Pulse oximetry Heart rate 97 /min 97 /min [facility] Diastolic blood 83 mm[Hg] 83 mm[Hg] [facility] pressure Medical Center Systolic blood 154 mm[Hg] 154 mm[Hg] [facility] Body temperature 36.805163 Kaylie 36.211357 Kaylie [facility] Respiratory rate 18 /min 18 /min [facility] Oxygen 98 % 98 % [facility] [place] saturation in Medical Arterial blood Center by Pulse oximetry Heart rate 91 /min 91 /min [facility] Diastolic blood 90 mm[Hg] 90 mm[Hg] [facility] pressure [facility] Center Systolic blood 158 mm[Hg] 158 mm[Hg] [facility] Body temperature 36.662641 Kaylie 36.590857 Kaylie [facility] Respiratory rate 18 /min 18 /min [facility] Oxygen 96 % 96 % [place] saturation in Medical Arterial blood Center by Pulse oximetry Heart rate 91 /min 91 /min [facility] Diastolic blood 98 mm[Hg] 98 mm[Hg] [facility] pressure Medical Center Systolic blood 149 mm[Hg] 149 mm[Hg] [facility] Body temperature 36.692339 Kaylie 36.217681 Kaylie [facility] Respiratory rate 18 /min 18 /min [facility] Oxygen 98 % 98 % [place] saturation in Medical Arter[facility] blood Center by Pulse oximetry Heart rate 84 /min 84 /min [facility] Diastolic blood 67 mm[Hg] 67 mm[Hg] [facility] Systolic blood 128 mm[Hg] 128 mm[Hg] [facility] Body weight 90.978306 kg 90.192508 kg [facility] Body temperature 36.252544 Kaylie 36.444998 Kaylie [facility] Respiratory rate 17 /min 17 /min [facility] Oxygen 96 % 96 % [place] saturation in Medical Ar[facility]ial blood Center by Pulse oximetry Heart rate 79 /min 79 /min [facility] Body height 177.826322 cm 177.952924 cm [facility] Diastolic blood 74 mm[Hg] 74 mm[Hg] [facility] Systolic blood 120 mm[Hg] 120 mm[Hg] [facility] Body mass index 28.6 kg/m2 28.6 kg/m2 [facility] (BMI) [Ratio] [facility] Center Body temperature 37.807266 Kaylie 37.886650 Kaylie [facility] Respiratory rate 18 /min 18 /min [facility] Heart rate 95 /min 95 /min [facility] Diastolic blood 114 mm[Hg] 114 mm[Hg] [facility] pressure [facility] Center Systolic blood 179 mm[Hg] 179 mm[Hg] [facility] [place] Body temperature 36.829424 Kaylie 36.653154 Kaylie [facility] Respiratory rate 18 /min 18 /min [facility] Oxygen 96 % 96 % [place] saturation in Medical Arterial blood Center by Pulse oximetry Heart rate 85 /min 85 /min [facility] Diastolic blood 90 mm[Hg] 90 mm[Hg] [facility] pressure Medical Center Systolic blood 144 mm[Hg] 144 mm[Hg] [facility] Body temperature 36.847315 Kaylie 36.775051 Akylie [facility] Respiratory rate 18 /min 18 /min [facility] Oxygen 95 % 95 % [place] saturation in Medical Arterial blood Center by Pulse oximetry Heart rate 84 /min 84 /min [facility] Diastolic blood 80 mm[Hg] 80 mm[Hg] [facility] pressure Medical Center Systolic blood 138 mm[Hg] 138 mm[Hg] [facility] Body weight 110.036771 kg 110.222393 kg [facility] Body temperature 36.685372 Kaylie 36.897824 Kaylie [facility] Respiratory rate 18 /min 18 /min [facility] Oxygen 98 % 98 % [facility] [place] saturation in Medical Arterial blood Center by Pulse oximetry Heart rate 78 /min 78 /min [facility] Body height 185.463079 cm 185.995429 cm [facility] Diastolic blood 78 mm[Hg] 78 mm[Hg] [facility] pressure Medical Center Systolic blood 148 mm[Hg] 148 mm[Hg] [facility] Body mass index 31.9 kg/m2 31.9 kg/m2 [facility] (BMI) [Ratio] [facility] Body temperature 36.944277 Kaylie 36.928925 Kaylie [facility] Respiratory rate 20 /min 20 /min [facility] Oxygen 94 % 94 % [place] saturation in Medical Arterial blood Center by Pulse oximetry Heart rate 80 /min 80 /min [facility] Diastolic blood 69 mm[Hg] 69 mm[Hg] [facility] pressure [facility] Center Systolic blood 125 mm[Hg] 125 mm[Hg] [facility] Body temperature 36.987971 Kaylie 36.575711 Kaylie [facility] Respiratory rate 18 /min 18 /min [facility] Oxygen 100 % 100 % [place] saturation in Medical Arterial blood Center by Pulse oximetry Heart rate 78 /min 78 /min [facility] Diastolic blood 70 mm[Hg] 70 mm[Hg] [facility] Systolic blood 130 mm[Hg] 130 mm[Hg] [facility] Body temperature 36.968025 Kaylie 36.464030 Kaylie [facility] Respiratory rate 18 /min 18 /min [facility] Oxygen 95 % 95 % [place] saturation in Medical Arterial blood Center by Pulse oximetry Heart rate 93 /min 93 /min [facility] Diastolic blood 83 mm[Hg] 83 mm[Hg] [facility] Systolic blood 163 mm[Hg] 163 mm[Hg] [facility] Body temperature 36.414695 Kaylie 36.850152 Kaylie [facility] Respiratory rate 20 /min 20 /min [facility] Oxygen 94 % 94 % [facility] saturation in Medical Arterial blood Center by Pulse oximetry Heart rate 94 /min 94 /min [facility] Diastolic blood 90 mm[Hg] 90 mm[Hg] [facility] Systolic blood 130 mm[Hg] 130 mm[Hg] [facility] Body weight 104.028969 kg 104.567265 kg [facility] Body temperature 36.189271 Kaylie 36.161513 Kaylie [facility] Respiratory rate 17 /min 17 /min [facility] Oxygen 100 % 100 % [facility] saturation in Medical Arterial blood Center by Pulse oximetry Heart rate 91 /min 91 /min [facility] Body height 177.909937 cm 177.520644 cm [facility] Diastolic blood 97 mm[Hg] 97 mm[Hg] [facility] Systolic blood 123 mm[Hg] 123 mm[Hg] [facility] Body mass index 33.0 kg/m2 33.0 kg/m2 [facility] (BMI) [Ratio] Medical Center Body temperature 37.173213 Kaylie 37.587088 Kaylie [facility] Respiratory rate 18 /min 18 /min [facility] Oxygen 97 % 97 % [facility] saturation in Medical Arterial blood Center by Pulse oximetry Heart rate 90 /min 90 /min [facility] Diastolic blood 76 mm[Hg] 76 mm[Hg] [facility] Systolic blood 148 mm[Hg] 148 mm[Hg] [facility] Body temperature 37.570842 Kaylie 37.707700 Kaylie [facility] Respiratory rate 18 /min 18 /min [facility] Oxygen 96 % 96 % [facility] [place] saturation in Medical Arterial blood Center by Pulse oximetry Heart rate 96 /min 96 /min [facility] Diastolic blood 97 mm[Hg] 97 mm[Hg] [facility] pressure [facility] Center Systolic blood 176 mm[Hg] 176 mm[Hg] [facility] Body temperature 36.532150 Kaylie 36.304878 Kaylie [facility] Respiratory rate 18 /min 18 /min [facility] Oxygen 99 % 99 % [place] saturation in Medical Arterial blood Center by Pulse oximetry Heart rate 98 /min 98 /min [facility] Diastolic blood 91 mm[Hg] 91 mm[Hg] [facility] [place] Systolic blood 152 mm[Hg] 152 mm[Hg] [facility] Body temperature 37.534515 Kaylie 37.707319 Kaylie [facility] Respiratory rate 18 /min 18 /min [facility] Oxygen 94 % 94 % [place] saturation in Medical Arterial blood Center by Pulse oximetry Heart rate 84 /min 84 /min [facility] Diastolic blood 81 mm[Hg] 81 mm[Hg] [facility] [place] Systolic blood 144 mm[Hg] 144 mm[Hg] [facility] Body temperature 36.569960 Kaylie 36.888173 Kaylie [facility] Respiratory rate 19 /min 19 /min [facility] Oxygen 99 % 99 % [place] saturation in Medical Arterial blood Center by Pulse oximetry Heart rate 80 /min 80 /min [facility] Diastolic blood 78 mm[Hg] 78 mm[Hg] [facility] pressure Medical Center Systolic blood 139 mm[Hg] 139 mm[Hg] [facility] Body temperature 36.536493 Kaylie 36.699552 Kaylie [facility] Respiratory rate 19 /min 19 /min [facility] Oxygen 97 % 97 % [place] saturation in Medical Arterial blood Center by Pulse oximetry Heart rate 71 /min 71 /min [facility] Diastolic blood 88 mm[Hg] 88 mm[Hg] [facility] Systolic blood 138 mm[Hg] 138 mm[Hg] [facility] Body temperature 36.121985 Kaylie 36.567291 Kaylie [facility] Respiratory rate 18 /min 18 /min [facility] Oxygen 98 % 98 % [place] saturation in Medical Arterial blood Center by Pulse oximetry Heart rate 97 /min 97 /min [facility] Diastolic blood 90 mm[Hg] 90 mm[Hg] [facility] Systolic blood 156 mm[Hg] 156 mm[Hg] [facility] [place] Body temperature 36.142430 Kaylie 36.017234 Kaylie [facility] Respiratory rate 18 /min 18 /min [facility] Oxygen 95 % 95 % [place] saturation in Medical Arterial blood Center by Pulse oximetry Heart rate 98 /min 98 /min [facility] Diastolic blood 93 mm[Hg] 93 mm[Hg] [facility] [place] Systolic blood 163 mm[Hg] 163 mm[Hg] [facility] Body temperature 36.860316 Kaylie 36.049265 Kaylie [facility] Respiratory rate 18 /min 18 /min [facility] Oxygen 95 % 95 % [place] saturation in Medical Arterial blood Center by Pulse oximetry Heart rate 84 /min 84 /min [facility] Diastolic blood 83 mm[Hg] 83 mm[Hg] [facility] Systolic blood 130 mm[Hg] 130 mm[Hg] [facility] Body temperature 36.068868 Kaylie 36.150599 Kaylie [facility] Respiratory rate 17 /min 17 /min [facility] Oxygen 96 % 96 % [place] saturation in Medical Arterial blood Center by Pulse oximetry Heart rate 81 /min 81 /min [facility] Diastolic blood 71 mm[Hg] 71 mm[Hg] [facility] Systolic blood 118 mm[Hg] 118 mm[Hg] [facility] Body temperature 37.014107 Kaylie 37.578253 Kaylie [facility] Respiratory rate 18 /min 18 /min [facility] Oxygen 91 % 91 % [place] saturation in Medical Arterial blood Center by Pulse oximetry Heart rate 107 /min 107 /min [facility] Diastolic blood 79 mm[Hg] 79 mm[Hg] [facility] pressure [facility] Center Systolic blood 144 mm[Hg] 144 mm[Hg] [facility] Body temperature 36.381226 Kaylie 36.660699 Kaylie [facility] Respiratory rate 18 /min 18 /min [facility] Oxygen 90 % 90 % [place] saturation in Medical Arterial blood Center by Pulse oximetry Heart rate 96 /min 96 /min [facility] Diastolic blood 43 mm[Hg] 43 mm[Hg] [facility] [place] Systolic blood 100 mm[Hg] 100 mm[Hg] [facility] [place] Body temperature 36.427276 Kaylie 36.388251 Kaylie [facility] Respiratory rate 18 /min 18 /min [facility] Oxygen 98 % 98 % [place] saturation in Medical Arterial blood Center by Pulse oximetry Heart rate 96 /min 96 /min [facility] Diastolic blood 80 mm[Hg] 80 mm[Hg] [facility] [place] Systolic blood 132 mm[Hg] 132 mm[Hg] [facility] Body temperature 37.639485 Kaylie 37.497901 Kaylie [facility] Respiratory rate 18 /min 18 /min [facility] Oxygen 97 % 97 % [place] saturation in Medical Arterial blood Center by Pulse oximetry Heart rate 98 /min 98 /min [facility] Diastolic blood 57 mm[Hg] 57 mm[Hg] [facility] Systolic blood 141 mm[Hg] 141 mm[Hg] [facility] Body temperature 36.483045 Kaylie 36.007391 Kaylie [facility] Respiratory rate 20 /min 20 /min [facility] Oxygen 97 % 97 % [place] saturation in Medical Arterial blood Center by Pulse oximetry Heart rate 100 /min 100 /min [facility] Diastolic blood 71 mm[Hg] 71 mm[Hg] [facility] Systolic blood 140 mm[Hg] 140 mm[Hg] [facility] [place] Body temperature 36.174383 Kaylie 36.609692 Kaylie [facility] Respiratory rate 18 /min 18 /min [facility] Oxygen 98 % 98 % [place] saturation in Medical Arterial blood Center by Pulse oximetry Heart rate 96 /min 96 /min [facility] Diastolic blood 67 mm[Hg] 67 mm[Hg] [facility] pressure [facility] Center Systolic blood 132 mm[Hg] 132 mm[Hg] [facility] [place] Body temperature 36.366426 Kaylie 36.230371 Kaylie [facility] Respiratory rate 17 /min 17 /min [facility] Oxygen 98 % 98 % [place] saturation in Medical Arterial blood Center by Pulse oximetry Heart rate 87 /min 87 /min [facility] Diastolic blood 71 mm[Hg] 71 mm[Hg] [facility] [place] Systolic blood 133 mm[Hg] 133 mm[Hg] [facility] [place] Body temperature 36.620589 Kaylie 36.207661 Kaylie [facility] Respiratory rate 17 /min 17 /min [facility] Oxygen 95 % 95 % [place] saturation in Medical Arterial blood Center by Pulse oximetry Heart rate 100 /min 100 /min [facility] Diastolic blood 78 mm[Hg] 78 mm[Hg] [facility] [place] Systolic blood 124 mm[Hg] 124 mm[Hg] [facility] [place] Body temperature 36.768659 Kaylie 36.182288 Kaylie [facility] Respiratory rate 19 /min 19 /min [facility] Oxygen 95 % 95 % [place] saturation in Medical Arter[facility] blood Center by Pulse oximetry Heart rate 103 /min 103 /min [facility] Diastolic blood 65 mm[Hg] 65 mm[Hg] [facility] Systolic blood 126 mm[Hg] 126 mm[Hg] [facility] Body temperature 36.625232 Kaylie 36.568296 Kaylie [facility] Respiratory rate 20 /min 20 /min [facility] Oxygen 94 % 94 % [place] saturation in Medical Arterial blood Center by Pulse oximetry Heart rate 105 /min 105 /min [facility] Diastolic blood 61 mm[Hg] 61 mm[Hg] [facility] [place] Systolic blood 122 mm[Hg] 122 mm[Hg] [facility] Body temperature 36.379390 Kaylie 36.440663 Kaylie [facility] Respiratory rate 18 /min 18 /min [facility] Oxygen 97 % 97 % [place] saturation in Medical Arterial blood Center by Pulse oximetry Heart rate 97 /min 97 /min [facility] Diastolic blood 76 mm[Hg] 76 mm[Hg] [facility] pressure [facility] Center Systolic blood 132 mm[Hg] 132 mm[Hg] [facility] Body temperature 36.359793 Kaylie 36.600641 Kaylie [facility] Respiratory rate 17 /min 17 /min [facility] Oxygen 98 % 98 % [place] saturation in Medical Arterial blood Center by Pulse oximetry Heart rate 75 /min 75 /min [facility] Diastolic blood 35 mm[Hg] 35 mm[Hg] [facility] pressure [facility] Center Systolic blood 139 mm[Hg] 139 mm[Hg] [facility] Body temperature 36.018866 Kaylie 36.336776 Kaylie [facility] Respiratory rate 17 /min 17 /min [facility] Oxygen 98 % 98 % [place] saturation in Medical Arterial blood Center by Pulse oximetry Heart rate 81 /min 81 /min [facility] Diastolic blood 83 mm[Hg] 83 mm[Hg] [facility] Systolic blood 135 mm[Hg] 135 mm[Hg] [facility] Body temperature 36.183180 Kaylie 36.447673 Kaylie [facility] Respiratory rate 17 /min 17 /min [facility] Oxygen 97 % 97 % [place] saturation in Medical Arterial blood Center by Pulse oximetry Heart rate 87 /min 87 /min [facility] Diastolic blood 57 mm[Hg] 57 mm[Hg] [facility] Systolic blood 92 mm[Hg] 92 mm[Hg] [facility] Body temperature 36.320699 Kaylie 36.333500 Kaylie [facility] Respiratory rate 17 /min 17 /min [facility] Oxygen 98 % 98 % [place] saturation in Medical Arterial blood Center by Pulse oximetry Heart rate 80 /min 80 /min [facility] Diastolic blood 78 mm[Hg] 78 mm[Hg] [facility] Systolic blood 123 mm[Hg] 123 mm[Hg] [facility] Body weight 95.866798 kg 95.130726 kg [facility] Body temperature 36.607800 Kaylie 36.866851 Kaylie [facility] Respiratory rate 17 /min 17 /min [facility] Oxygen 96 % 96 % [facility] saturation in Medical Arterial blood Center by Pulse oximetry Heart rate 90 /min 90 /min [facility] Body height 177.072843 cm 177.550983 cm [facility] Diastolic blood 73 mm[Hg] 73 mm[Hg] [facility] Systolic blood 132 mm[Hg] 132 mm[Hg] [facility] Body mass index 30.1 kg/m2 30.1 kg/m2 [facility] (BMI) [Ratio] Medical Center Body temperature 36.436351 Kaylie 36.090773 Kaylie [facility] Respiratory rate 18 /min 18 /min [facility] Heart rate 88 /min 88 /min [facility] Diastolic blood 71 mm[Hg] 71 mm[Hg] [facility] pressure [facility] [place] Systolic blood 147 mm[Hg] 147 mm[Hg] [facility] Body temperature 36.512164 Kaylie 36.836223 Kaylie [facility] Respiratory rate 20 /min 20 /min [facility] Heart rate 86 /min 86 /min [facility] Diastolic blood 89 mm[Hg] 89 mm[Hg] [facility] Systolic blood 145 mm[Hg] 145 mm[Hg] [facility] Body weight 114.575025 kg 114.720314 kg [facility] Body height 177.641839 cm 177.269609 cm [facility] Body mass index 36.06 kg/m2 36.06 kg/m2 [facility] (BMI) [Ratio] Medical Center Body temperature 37.767022 Kaylie 37.877254 Kaylie [facility] Respiratory rate 18 /min 18 /min [facility] Heart rate 89 /min 89 /min [facility] Diastolic blood 73 mm[Hg] 73 mm[Hg] [facility] Systolic blood 120 mm[Hg] 120 mm[Hg] [facility] Body temperature 37.349233 Kaylie 37.640957 Kaylie [facility] Respiratory rate 18 /min 18 /min [facility] Heart rate 90 /min 90 /min [facility] Diastolic blood 107 mm[Hg] 107 mm[Hg] [facility] pressure [facility] Center Systolic blood 160 mm[Hg] 160 mm[Hg] [facility] Body temperature 37.831278 Kaylie 37.213192 Kaylie [facility] Respiratory rate 18 /min 18 /min [facility] Heart rate 80 /min 80 /min [facility] Diastolic blood 68 mm[Hg] 68 mm[Hg] [facility] pressure [facility] Center Systolic blood 128 mm[Hg] 128 mm[Hg] [facility] Body weight 114.903478 kg 114.942771 kg [facility] Measured [facility] Body height 177.986564 cm 177.171880 cm [facility] Body mass index 36.06 kg/m2 36.06 kg/m2 [facility] (BMI) [Ratio] [facility] Center Oxygen 95 % 95 % [place] saturation in Medical Ar[facility]ial blood Center by Pulse oximetry Body weight 114.837975 kg 114.520500 kg [facility] Measured [facility] Body height 177.769797 cm 177.949069 cm [facility] Body mass index 36.06 kg/m2 36.06 kg/m2 [facility] (BMI) [Ratio] [facility] Center Oxygen 95 % 95 % [place] saturation in Medical Arterial blood Center by Pulse oximetry Oxygen 95 % 95 % [place] saturation in Medical Arterial blood Center by Pulse oximetry Body height 177.543243 cm 177.263586 cm [facility] Body mass index 36.06 kg/m2 36.06 kg/m2 [facility] (BMI) [Ratio] Medical Center Body weight 114.537409 kg 114.750466 kg [facility] Body weight 114.547532 kg 114.764205 kg [facility] Body height 177.765655 cm 177.594162 cm [facility] Body mass index 36.06 kg/m2 36.06 kg/m2 [facility] (BMI) [Ratio] [facility] Center Diastolic blood 86 mm[Hg] 86 mm[Hg] [facility] pressure Medical Center Systolic blood 146 mm[Hg] 146 mm[Hg] [facility] Body temperature 37.212550 Kaylie 37.471533 Kaylie [facility] Body temperature 37.285874 Kaylie 37.148335 Kaylie [facility] Respiratory rate 18 /min 18 /min [facility] Heart rate 94 /min 94 /min [facility] Diastolic blood 87 mm[Hg] 87 mm[Hg] [facility] Systolic blood 151 mm[Hg] 151 mm[Hg] [facility] Center Body weight 114.012798 kg 114.954808 kg [facility] Body height 177.483051 cm 177.518157 cm [facility] Body mass index 36.06 kg/m2 36.06 kg/m2 [facility] (BMI) [Ratio] [facility] Center Body weight 114.814187 kg 114.580782 kg [facility] Body height 177.608275 cm 177.431728 cm [facility] Body mass index 36.06 kg/m2 36.06 kg/m2 [facility] (BMI) [Ratio] [facility] Center Body weight 114.444685 kg 114.339373 kg [facility] Body temperature 37.349636 Kaylie 37.580667 Kaylie [facility] Body temperature 36.243446 Kaylie 36.969590 Kaylie [facility] Respiratory rate 18 /min 18 /min [facility] Respiratory rate 17 /min 17 /min [facility] Heart rate 84 /min 84 /min [facility] Heart rate 78 /min 78 /min [facility] Body height 177.991399 cm 177.139727 cm [facility] Diastolic blood 96 mm[Hg] 96 mm[Hg] [facility] Systolic blood 176 mm[Hg] 176 mm[Hg] [facility] Diastolic blood 96 mm[Hg] 96 mm[Hg] [facility] Systolic blood 149 mm[Hg] 149 mm[Hg] [facility] Body mass index 36.06 kg/m2 36.06 kg/m2 [facility] (BMI) [Ratio] Medical Center Oxygen 99 % 99 % [facility] saturation in Medical Arterial blood Center by Pulse oximetry Body temperature 36.507927 Kaylie 36.170479 Kaylie [facility] Respiratory rate 18 /min 18 /min [facility] Heart rate 80 /min 80 /min [facility] Diastolic blood 99 mm[Hg] 99 mm[Hg] [facility] pressure Medical Center Systolic blood 149 mm[Hg] 149 mm[Hg] [facility] Oxygen 99 % 99 % [facility] saturation in Medical Arterial blood Center by Pulse oximetry Systolic blood 144 mm[Hg] 144 mm[Hg] [facility] [place] Body temperature 36.743429 Kaylie 36.450769 Kaylie [facility] Respiratory rate 17 /min 17 /min [facility] Oxygen 98 % 98 % [facility] saturation in Medical Arterial blood Center by Pulse oximetry Heart rate 78 /min 78 /min [facility] Diastolic blood 94 mm[Hg] 94 mm[Hg] [facility] Respiratory rate 20 /min 20 /min [facility] Oxygen 96 % 96 % [facility] saturation in Medical Arterial blood Center by Pulse oximetry Heart rate 88 /min 88 /min [facility] Oxygen 97 % 97 % [facility] saturation in Medical Arterial blood Center by Pulse oximetry Body temperature 36.793884 Kaylie 36.732121 Kaylie [facility] Respiratory rate 18 /min 18 /min [facility] Oxygen 98 % 98 % [facility] saturation in Medical Arterial blood Center by Pulse oximetry Heart rate 87 /min 87 /min [facility] Diastolic blood 77 mm[Hg] 77 mm[Hg] [facility] pressure Medical Center Systolic blood 112 mm[Hg] 112 mm[Hg] [facility] [place] Body temperature 36.651347 Kaylie 36.335402 Kaylie [facility] Respiratory rate 17 /min 17 /min [facility] Oxygen 98 % 98 % [facility] saturation in Medical Arterial blood Center by Pulse oximetry Heart rate 81 /min 81 /min [facility] Diastolic blood 67 mm[Hg] 67 mm[Hg] [facility] pressure Medical Center Systolic blood 132 mm[Hg] 132 mm[Hg] [facility] Body temperature 37.022433 Kaylie 37.916915 Kaylie [facility] Respiratory rate 16 /min 16 /min [facility] Oxygen 98 % 98 % [facility] saturation in Medical Arterial blood Center by Pulse oximetry Heart rate 78 /min 78 /min [facility] Diastolic blood 65 mm[Hg] 65 mm[Hg] [facility] pressure Medical Center Systolic blood 136 mm[Hg] 136 mm[Hg] [facility] Body temperature 36.913345 Kaylie 36.933761 Kaylie [facility] Respiratory rate 17 /min 17 /min [facility] Oxygen 96 % 96 % [place] saturation in Medical Arterial blood Center by Pulse oximetry Heart rate 86 /min 86 /min [facility] Diastolic blood 73 mm[Hg] 73 mm[Hg] [facility] pressure Medical Center Systolic blood 142 mm[Hg] 142 mm[Hg] [facility] Body temperature 36.481186 Kaylie 36.416807 Kaylie [facility] Respiratory rate 17 /min 17 /min [facility] Heart rate 79 /min 79 /min [facility] Diastolic blood 87 mm[Hg] 87 mm[Hg] [facility] Systolic blood 138 mm[Hg] 138 mm[Hg] [facility] [place] Body temperature 37.130421 Kaylie 37.978024 Kaylie [facility] Respiratory rate 17 /min 17 /min [facility] Heart rate 99 /min 99 /min [facility] Diastolic blood 99 mm[Hg] 99 mm[Hg] [facility] Systolic blood 147 mm[Hg] 147 mm[Hg] [facility] Oxygen 97 % 97 % [place] saturation in Medical Arterial blood Center by Pulse oximetry Body temperature 36.563899 Kaylie 36.642413 Kaylie [facility] Respiratory rate 18 /min 18 /min [facility] Oxygen 96 % 96 % [place] saturation in Medical Arterial blood Center by Pulse oximetry Heart rate 78 /min 78 /min [facility] Diastolic blood 78 mm[Hg] 78 mm[Hg] [facility] pressure Medical Center Systolic blood 138 mm[Hg] 138 mm[Hg] [facility] Body temperature 35.736890 Kaylie 35.249803 Kaylie [facility] Respiratory rate 17 /min 17 /min [facility] Oxygen 98 % 98 % [facility] saturation in Medical Arterial blood Center by Pulse oximetry Heart rate 77 /min 77 /min [facility] Diastolic blood 79 mm[Hg] 79 mm[Hg] [facility] [place] Systolic blood 143 mm[Hg] 143 mm[Hg] [facility] Body temperature 36.390822 Kaylie 36.097523 Kaylie [facility] Respiratory rate 16 /min 16 /min [facility] Heart rate 81 /min 81 /min [facility] Diastolic blood 76 mm[Hg] 76 mm[Hg] [facility] [place] Systolic blood 138 mm[Hg] 138 mm[Hg] [facility] Body temperature 36.111746 Kaylie 36.161091 Kaylie [facility] Respiratory rate 17 /min 17 /min [facility] Oxygen 97 % 97 % [place] saturation in Medical Arterial blood Center by Pulse oximetry Heart rate 85 /min 85 /min [facility] Diastolic blood 67 mm[Hg] 67 mm[Hg] [facility] [place] Systolic blood 132 mm[Hg] 132 mm[Hg] [facility] Body temperature 36.567688 Kaylie 36.136958 Kaylie [facility] Respiratory rate 17 /min 17 /min [facility] Oxygen 94 % 94 % [facility] saturation in Medical Arterial blood Center by Pulse oximetry Heart rate 70 /min 70 /min [facility] Diastolic blood 72 mm[Hg] 72 mm[Hg] [facility] [place] Systolic blood 125 mm[Hg] 125 mm[Hg] [facility] Body temperature 36.750314 Kaylie 36.048960 Kaylie [facility] Respiratory rate 18 /min 18 /min [facility] Heart rate 88 /min 88 /min [facility] Diastolic blood 69 mm[Hg] 69 mm[Hg] [facility] Systolic blood 134 mm[Hg] 134 mm[Hg] [facility] Body temperature 36.047852 Kaylie 36.491345 Kaylie [facility] Respiratory rate 19 /min 19 /min [facility] Oxygen 96 % 96 % [facility] saturation in Medical Arterial blood Center by Pulse oximetry Heart rate 87 /min 87 /min [facility] Diastolic blood 71 mm[Hg] 71 mm[Hg] [facility] [place] Systolic blood 123 mm[Hg] 123 mm[Hg] [facility] Body weight 104.556972 kg 104.802683 kg [facility] Body temperature 36.423582 Kaylie 36.348174 Kaylie [facility] Respiratory rate 17 /min 17 /min [facility] Oxygen 95 % 95 % [facility] saturation in Medical Arterial blood Center by Pulse oximetry Heart rate 89 /min 89 /min [facility] Body height 177.684909 cm 177.794825 cm [facility] Diastolic blood 69 mm[Hg] 69 mm[Hg] [facility] [place] Systolic blood 127 mm[Hg] 127 mm[Hg] [facility] Body mass index 33.0 kg/m2 33.0 kg/m2 [facility] (BMI) [Ratio] Medical Center Body temperature 36.200662 Kaylie 36.784272 Kaylie [facility] Respiratory rate 19 /min 19 /min [facility] Heart rate 81 /min 81 /min [facility] Diastolic blood 88 mm[Hg] 88 mm[Hg] [facility] Systolic blood 136 mm[Hg] 136 mm[Hg] [facility] Body temperature 36.664663 Kaylie 36.579398 Kaylie [facility] Respiratory rate 18 /min 18 /min [facility] Heart rate 92 /min 92 /min [facility] Diastolic blood 98 mm[Hg] 98 mm[Hg] [facility] Systolic blood 148 mm[Hg] 148 mm[Hg] [facility] Body temperature 36.796693 Kaylie 36.788018 Kaylie [facility] Respiratory rate 19 /min 19 /min [facility] Oxygen 100 % 100 % [facility] saturation in Medical Arterial blood Center by Pulse oximetry Heart rate 100 /min 100 /min [facility] Diastolic blood 61 mm[Hg] 61 mm[Hg] [facility] Systolic blood 126 mm[Hg] 126 mm[Hg] [facility] Body temperature 36.550958 Kaylie 36.487669 Kaylie [facility] Respiratory rate 17 /min 17 /min [facility] Oxygen 96 % 96 % [facility] saturation in Medical Arterial blood Center by Pulse oximetry Heart rate 78 /min 78 /min [facility] Diastolic blood 89 mm[Hg] 89 mm[Hg] [facility] pressure Medical Center Systolic blood 146 mm[Hg] 146 mm[Hg] [facility] Center Body temperature 36.937689 Kaylie 36.700941 Kaylie [facility] Respiratory rate 17 /min 17 /min [facility] Oxygen 98 % 98 % [facility] saturation in Medical Arterial blood Center by Pulse oximetry Heart rate 90 /min 90 /min [facility] Diastolic blood 63 mm[Hg] 63 mm[Hg] [facility] pressure [facility] Center Systolic blood 145 mm[Hg] 145 mm[Hg] [facility] Respiratory rate 18 /min 18 /min [facility] Oxygen 99 % 99 % [place] saturation in Medical Arterial blood Center by Pulse oximetry Heart rate 78 /min 78 /min [facility] Diastolic blood 84 mm[Hg] 84 mm[Hg] [facility] Systolic blood 132 mm[Hg] 132 mm[Hg] [facility] Body temperature 36.307464 Kaylie 36.414934 Kaylie [facility] Body weight 110.147999 kg 110.370692 kg [facility] Body temperature 36.888313 Kaylie 36.123001 Kaylie [facility] Respiratory rate 18 /min 18 /min [facility] Oxygen 98 % 98 % [place] saturation in Medical Arterial blood Center by Pulse oximetry Heart rate 89 /min 89 /min [facility] Body height 180.895858 cm 180.385608 cm [facility] Diastolic blood 88 mm[Hg] 88 mm[Hg] [facility] pressure Medical Center Systolic blood 154 mm[Hg] 154 mm[Hg] [facility] Center Body mass index 33.8 kg/m2 33.8 kg/m2 [facility] (BMI) [Ratio] Medical Center Body temperature 36.462252 Kaylie 36.084564 Kaylie [facility] Respiratory rate 17 /min 17 /min [facility] Oxygen 99 % 99 % [facility] saturation in Medical Arterial blood Center by Pulse oximetry Heart rate 81 /min 81 /min [facility] Diastolic blood 71 mm[Hg] 71 mm[Hg] [facility] pressure Medical Center Systolic blood 118 mm[Hg] 118 mm[Hg] [facility] [place] Body temperature 36.429517 Kaylie 36.964924 Kaylie [facility] Respiratory rate 18 /min 18 /min [facility] Oxygen 99 % 99 % [facility] [place] saturation in Medical Arterial blood Center by Pulse oximetry Heart rate 78 /min 78 /min [facility] Diastolic blood 77 mm[Hg] 77 mm[Hg] [facility] pressure Medical [place] Systolic blood 129 mm[Hg] 129 mm[Hg] [facility] [place] Body temperature 37.591362 Kaylie 37.598412 Kaylie [facility] Respiratory rate 17 /min 17 /min [facility] Oxygen 97 % 97 % [facility] [place] saturation in Medical Arterial blood Center by Pulse oximetry Heart rate 79 /min 79 /min [facility] Diastolic blood 75 mm[Hg] 75 mm[Hg] [facility] [place] Systolic blood 136 mm[Hg] 136 mm[Hg] [facility] Body temperature 36.736224 Kaylie 36.975653 Kaylie [facility] Respiratory rate 17 /min 17 /min [facility] Oxygen 98 % 98 % [facility] [place] saturation in Medical Arterial blood Center by Pulse oximetry Heart rate 88 /min 88 /min [facility] Diastolic blood 81 mm[Hg] 81 mm[Hg] [facility] Systolic blood 159 mm[Hg] 159 mm[Hg] [facility] [place] Body temperature 36.364756 Kaylie 36.228124 Kaylie [facility] Respiratory rate 18 /min 18 /min [facility] Oxygen 97 % 97 % [facility] [place] saturation in Medical Arterial blood Center by Pulse oximetry Heart rate 88 /min 88 /min [facility] Diastolic blood 75 mm[Hg] 75 mm[Hg] [facility] Systolic blood 145 mm[Hg] 145 mm[Hg] [facility] Body temperature 36.229299 Kaylie 36.284471 Kaylie [facility] Respiratory rate 17 /min 17 /min [facility] Oxygen 97 % 97 % [facility] [place] saturation in Medical Arterial blood Center by Pulse oximetry Heart rate 90 /min 90 /min [facility] Diastolic blood 78 mm[Hg] 78 mm[Hg] [facility] pressure Medical Center Systolic blood 160 mm[Hg] 160 mm[Hg] [facility] Body temperature 37.311725 Kaylie 37.877310 Kaylie [facility] Respiratory rate 18 /min 18 /min [facility] Oxygen 95 % 95 % [facility] [place] saturation in Medical Arterial blood Center by Pulse oximetry Heart rate 93 /min 93 /min [facility] Diastolic blood 80 mm[Hg] 80 mm[Hg] [facility] pressure [facility] Center Systolic blood 198 mm[Hg] 198 mm[Hg] [facility] Body temperature 37.336051 Kaylie 37.572898 Kaylie [facility] Respiratory rate 18 /min 18 /min [facility] Oxygen 95 % 95 % [facility] [place] saturation in Medical Arterial blood Center by Pulse oximetry Heart rate 92 /min 92 /min [facility] Diastolic blood 71 mm[Hg] 71 mm[Hg] [facility] pressure Medical Center Systolic blood 139 mm[Hg] 139 mm[Hg] [facility] Body temperature 36.696336 Kaylie 36.843162 Kaylie [facility] Respiratory rate 17 /min 17 /min [facility] Oxygen 98 % 98 % [facility] [place] saturation in Medical Arterial blood Center by Pulse oximetry Heart rate 89 /min 89 /min [facility] Diastolic blood 83 mm[Hg] 83 mm[Hg] [facility] pressure [facility] Center Systolic blood 159 mm[Hg] 159 mm[Hg] [facility] Body temperature 36.968711 Kaylie 36.305510 Kaylie [facility] Respiratory rate 18 /min 18 /min [facility] Oxygen 97 % 97 % [facility] [place] saturation in Medical Arterial blood Center by Pulse oximetry Heart rate 81 /min 81 /min [facility] Diastolic blood 74 mm[Hg] 74 mm[Hg] [facility] pressure [facility] Center Systolic blood 117 mm[Hg] 117 mm[Hg] [facility] Body temperature 37.000362 Kaylie 37.529172 Kaylie [facility] Respiratory rate 19 /min 19 /min [facility] Oxygen 98 % 98 % [place] saturation in Medical Arterial blood Center by Pulse oximetry Heart rate 88 /min 88 /min [facility] Diastolic blood 87 mm[Hg] 87 mm[Hg] [facility] pressure [facility] Center Systolic blood 149 mm[Hg] 149 mm[Hg] [facility] Body temperature 37.379526 Kaylie 37.292835 Kaylie [facility] Respiratory rate 20 /min 20 /min [facility] Oxygen 97 % 97 % [place] saturation in Medical Arterial blood Center by Pulse oximetry Heart rate 92 /min 92 /min [facility] Diastolic blood 85 mm[Hg] 85 mm[Hg] [facility] pressure [facility] Center Systolic blood 152 mm[Hg] 152 mm[Hg] [facility] Body temperature 36.054411 Kaylie 36.474037 Kaylie [facility] Respiratory rate 18 /min 18 /min [facility] Oxygen 100 % 100 % [place] saturation in Medical Arterial blood Center by Pulse oximetry Heart rate 70 /min 70 /min [facility] Diastolic blood 74 mm[Hg] 74 mm[Hg] [facility] pressure [facility] Center Systolic blood 129 mm[Hg] 129 mm[Hg] [facility] Center Body weight 99.560705 kg 99.892230 kg [facility] Body temperature 36.027491 Kaylie 36.625042 Kaylie [facility] Respiratory rate 18 /min 18 /min [facility] Oxygen 98 % 98 % [place] saturation in Medical Arterial blood Center by Pulse oximetry Heart rate 78 /min 78 /min [facility] Body height 182.874045 cm 182.366197 cm [facility] Diastolic blood 74 mm[Hg] 74 mm[Hg] [facility] pressure [facility] Center Systolic blood 128 mm[Hg] 128 mm[Hg] [facility] Body mass index 29.8 kg/m2 29.8 kg/m2 [facility] (BMI) [Ratio] Medical Center Body temperature 36.073640 Kaylie 36.659726 Kaylie [facility] Respiratory rate 20 /min 20 /min [facility] Oxygen 94 % 94 % [place] saturation in Medical Arterial blood Center by Pulse oximetry Heart rate 92 /min 92 /min [facility] Diastolic blood 87 mm[Hg] 87 mm[Hg] [facility] pressure [facility] Center Systolic blood 143 mm[Hg] 143 mm[Hg] [facility] Body temperature 36.368516 Kaylie 36.069670 Kaylie [facility] Respiratory rate 18 /min 18 /min [facility] Oxygen 96 % 96 % [place] saturation in Medical Arterial blood Center by Pulse oximetry Heart rate 87 /min 87 /min [facility] Diastolic blood 84 mm[Hg] 84 mm[Hg] [facility] Systolic blood 136 mm[Hg] 136 mm[Hg] [facility] Body temperature 37.733827 Kaylie 37.324122 Kaylie [facility] Respiratory rate 18 /min 18 /min [facility] Oxygen 96 % 96 % [facility] saturation in Medical Arterial blood Center by Pulse oximetry Heart rate 90 /min 90 /min [facility] Diastolic blood 63 mm[Hg] 63 mm[Hg] [facility] pressure [facility] Center Systolic blood 136 mm[Hg] 136 mm[Hg] [facility] [place] Body temperature 36.749384 Kaylie 36.802542 Kaylie [facility] Respiratory rate 18 /min 18 /min [facility] Oxygen 96 % 96 % [facility] saturation in Medical Arterial blood Center by Pulse oximetry Heart rate 109 /min 109 /min [facility] Diastolic blood 71 mm[Hg] 71 mm[Hg] [facility] pressure [facility] Center Systolic blood 130 mm[Hg] 130 mm[Hg] [facility] Body temperature 36.788502 Kaylie 36.598767 Kaylie [facility] Respiratory rate 18 /min 18 /min [facility] Heart rate 132 /min 132 /min [facility] Diastolic blood 76 mm[Hg] 76 mm[Hg] [facility] pressure [facility] Center Systolic blood 137 mm[Hg] 137 mm[Hg] [facility] Body temperature 36.818694 Kaylie 36.348885 Kaylie [facility] Respiratory rate 17 /min 17 /min [facility] Oxygen 97 % 97 % [place] saturation in Medical Arterial blood Center by Pulse oximetry Heart rate 104 /min 104 /min [facility] Diastolic blood 81 mm[Hg] 81 mm[Hg] [facility] pressure [facility] Center Systolic blood 143 mm[Hg] 143 mm[Hg] [facility] Body temperature 36.987444 Kaylie 36.053046 Kaylie [facility] Respiratory rate 19 /min 19 /min [facility] Oxygen 95 % 95 % [place] saturation in Medical Arterial blood Center by Pulse oximetry Heart rate 92 /min 92 /min [facility] Diastolic blood 96 mm[Hg] 96 mm[Hg] [facility] pressure [facility] Center Systolic blood 155 mm[Hg] 155 mm[Hg] [facility] [place] Body temperature 37.638899 Kaylie 37.552087 Kaylie [facility] Respiratory rate 18 /min 18 /min [facility] Oxygen 95 % 95 % [place] saturation in Medical Arterial blood Center by Pulse oximetry Heart rate 104 /min 104 /min [facility] Diastolic blood 78 mm[Hg] 78 mm[Hg] [facility] Systolic blood 155 mm[Hg] 155 mm[Hg] [facility] [place] Body temperature 36.990719 Kaylie 36.682038 Kaylie [facility] Respiratory rate 17 /min 17 /min [facility] Heart rate 95 /min 95 /min [facility] Diastolic blood 93 mm[Hg] 93 mm[Hg] [facility] Systolic blood 156 mm[Hg] 156 mm[Hg] [facility] [place] Body temperature 36.085339 Kaylie 36.755515 Kaylie [facility] Respiratory rate 18 /min 18 /min [facility] Oxygen 98 % 98 % [place] saturation in Medical Arterial blood Center by Pulse oximetry Heart rate 98 /min 98 /min [facility] Diastolic blood 94 mm[Hg] 94 mm[Hg] [facility] Systolic blood 156 mm[Hg] 156 mm[Hg] [facility] [place] Body temperature 36.487965 Kaylie 36.167683 Kaylie [facility] Respiratory rate 18 /min 18 /min [facility] Oxygen 98 % 98 % [place] saturation in Medical Arterial blood Center by Pulse oximetry Heart rate 91 /min 91 /min [facility] Diastolic blood 96 mm[Hg] 96 mm[Hg] [facility] pressure [facility] Center Systolic blood 146 mm[Hg] 146 mm[Hg] [facility] Respiratory rate 16 /min 16 /min [facility] Oxygen 95 % 95 % [place] saturation in Medical Arterial blood Center by Pulse oximetry Heart rate 101 /min 101 /min [facility] Diastolic blood 93 mm[Hg] 93 mm[Hg] [facility] pressure Medical Center Systolic blood 152 mm[Hg] 152 mm[Hg] [facility] Body temperature 36.666437 Kaylie 36.550099 Kaylie [facility] Respiratory rate 18 /min 18 /min [facility] Oxygen 96 % 96 % [place] saturation in Medical Arterial blood Center by Pulse oximetry Heart rate 99 /min 99 /min [facility] Diastolic blood 95 mm[Hg] 95 mm[Hg] [facility] Systolic blood 182 mm[Hg] 182 mm[Hg] [facility] Body temperature 37.933098 Kaylie 37.116651 Kaylie [facility] Respiratory rate 16 /min 16 /min [facility] Oxygen 95 % 95 % [place] saturation in Medical Arterial blood Center by Pulse oximetry Heart rate 105 /min 105 /min [facility] Diastolic blood 102 mm[Hg] 102 mm[Hg] [facility] Systolic blood 154 mm[Hg] 154 mm[Hg] [facility] [place] Body temperature 37.954869 Kaylie 37.562623 Kaylie [facility] Respiratory rate 19 /min 19 /min [facility] Oxygen 95 % 95 % [place] saturation in Medical Arterial blood Center by Pulse oximetry Heart rate 99 /min 99 /min [facility] Diastolic blood 99 mm[Hg] 99 mm[Hg] [facility] pressure Medical Center Systolic blood 175 mm[Hg] 175 mm[Hg] [facility] Body temperature 36.538540 Kaylie 36.492283 Kaylie [facility] Respiratory rate 19 /min 19 /min [facility] Oxygen 97 % 97 % [place] saturation in Medical Arterial blood Center by Pulse oximetry Heart rate 89 /min 89 /min [facility] Diastolic blood 93 mm[Hg] 93 mm[Hg] [facility] pressure [facility] Center Systolic blood 155 mm[Hg] 155 mm[Hg] [facility] Body temperature 36.769001 Kaylie 36.625013 Kaylie [facility] Body temperature 36.881579 Kaylie 36.008009 Kaylie [facility] Respiratory rate 18 /min 18 /min [facility] Oxygen 97 % 97 % [place] saturation in Medical Arterial blood Center by Pulse oximetry Heart rate 76 /min 76 /min [facility] Diastolic blood 72 mm[Hg] 72 mm[Hg] [facility] pressure Medical Center Systolic blood 138 mm[Hg] 138 mm[Hg] [facility] Body temperature 36.997954 Kaylie 36.568707 Kaylie [facility] Respiratory rate 17 /min 17 /min [facility] Oxygen 96 % 96 % [place] saturation in Medical Arterial blood Center by Pulse oximetry Heart rate 78 /min 78 /min [facility] Diastolic blood 69 mm[Hg] 69 mm[Hg] [facility] pressure Medical Center Systolic blood 142 mm[Hg] 142 mm[Hg] [facility] [place] Body temperature 36.054401 Kaylie 36.494616 Kaylie [facility] Respiratory rate 18 /min 18 /min [facility] Oxygen 97 % 97 % [place] saturation in Medical Arterial blood Center by Pulse oximetry Heart rate 83 /min 83 /min [facility] Diastolic blood 81 mm[Hg] 81 mm[Hg] [facility] pressure [facility] Center Systolic blood 159 mm[Hg] 159 mm[Hg] [facility] Body temperature 36.182551 Kaylie 36.351858 Kaylie [facility] Respiratory rate 18 /min 18 /min [facility] Oxygen 94 % 94 % [place] saturation in Medical Arterial blood Center by Pulse oximetry Heart rate 89 /min 89 /min [facility] Diastolic blood 89 mm[Hg] 89 mm[Hg] [facility] pressure Medical Center Systolic blood 139 mm[Hg] 139 mm[Hg] [facility] Body temperature 36.586131 Kaylie 36.639014 Kaylie [facility] Respiratory rate 19 /min 19 /min [facility] Oxygen 95 % 95 % [place] saturation in Medical Arterial blood Center by Pulse oximetry Heart rate 88 /min 88 /min [facility] Diastolic blood 82 mm[Hg] 82 mm[Hg] [facility] pressure [facility] Center Systolic blood 156 mm[Hg] 156 mm[Hg] [facility] Body temperature 36.036132 Kaylie 36.232510 Kaylie [facility] Respiratory rate 18 /min 18 /min [facility] Oxygen 98 % 98 % [place] saturation in Medical Arterial blood Center by Pulse oximetry Heart rate 74 /min 74 /min [facility] Diastolic blood 78 mm[Hg] 78 mm[Hg] [facility] pressure [facility] Center Systolic blood 128 mm[Hg] 128 mm[Hg] [facility] Body temperature 36.765244 Kaylie 36.990007 Kaylie [facility] Respiratory rate 17 /min 17 /min [facility] Oxygen 99 % 99 % [place] saturation in Medical Arterial blood Center by Pulse oximetry Heart rate 80 /min 80 /min [facility] Diastolic blood 92 mm[Hg] 92 mm[Hg] [facility] pressure [facility] Center Systolic blood 144 mm[Hg] 144 mm[Hg] [facility] Body weight 88.179169 kg 88.634212 kg [facility] Body temperature 36.103455 Kaylie 36.402578 Kaylie [facility] Respiratory rate 17 /min 17 /min [facility] Oxygen 99 % 99 % [place] saturation in Medical Arterial blood Center by Pulse oximetry Heart rate 78 /min 78 /min [facility] Body height 177.387602 cm 177.795817 cm [facility] Diastolic blood 88 mm[Hg] 88 mm[Hg] [facility] pressure [facility] Center Systolic blood 142 mm[Hg] 142 mm[Hg] [facility] Body mass index 27.8 kg/m2 27.8 kg/m2 [facility] (BMI) [Ratio] Medical Center Body temperature 37.021515 Kaylie 37.759848 Kaylie [facility] Respiratory rate 18 /min 18 /min [facility] Oxygen 96 % 96 % [place] saturation in Medical Arterial blood Center by Pulse oximetry Heart rate 97 /min 97 /min [facility] Diastolic blood 95 mm[Hg] 95 mm[Hg] [facility] pressure [facility] Center Systolic blood 157 mm[Hg] 157 mm[Hg] [facility] Body temperature 37.165123 Kaylie 37.819902 Kaylie [facility] Respiratory rate 18 /min 18 /min [facility] Oxygen 95 % 95 % [place] saturation in Medical Arterial blood Center by Pulse oximetry Heart rate 99 /min 99 /min [facility] Diastolic blood 81 mm[Hg] 81 mm[Hg] [facility] pressure [facility] Center Systolic blood 121 mm[Hg] 121 mm[Hg] [facility] Body temperature 36.913161 Kaylie 36.318117 Kaylie [facility] Respiratory rate 18 /min 18 /min [facility] Oxygen 97 % 97 % [place] saturation in Medical Arterial blood Center by Pulse oximetry Heart rate 89 /min 89 /min [facility] Diastolic blood 70 mm[Hg] 70 mm[Hg] [facility] Systolic blood 126 mm[Hg] 126 mm[Hg] [facility] Body weight 104.188591 kg 104.857942 kg [facility] Body temperature 36.995181 Kaylie 36.828983 Kaylie [facility] Respiratory rate 17 /min 17 /min [facility] Oxygen 98 % 98 % [place] saturation in Medical Arterial blood Center by Pulse oximetry Heart rate 98 /min 98 /min [facility] Body height 177.337457 cm 177.818379 cm [facility] Diastolic blood 60 mm[Hg] 60 mm[Hg] [facility] pressure [facility] Center Systolic blood 116 mm[Hg] 116 mm[Hg] [facility] Body mass index 33.0 kg/m2 33.0 kg/m2 [facility] (BMI) [Ratio] Medical Center Body temperature 36.890140 Kaylie 36.170596 Kaylie [facility] Respiratory rate 17 /min 17 /min [facility] Oxygen 98 % 98 % [place] saturation in Medical Arterial blood Center by Pulse oximetry Heart rate 84 /min 84 /min [facility] Diastolic blood 91 mm[Hg] 91 mm[Hg] [facility] pressure [facility] Center Systolic blood 153 mm[Hg] 153 mm[Hg] [facility] Body temperature 36.462734 Kaylie 36.857653 Kaylie [facility] Respiratory rate 16 /min 16 /min [facility] Heart rate 75 /min 75 /min [facility] Diastolic blood 76 mm[Hg] 76 mm[Hg] [facility] Systolic blood 136 mm[Hg] 136 mm[Hg] [facility] [place] Body temperature 36.828348 Kaylie 36.279490 Kaylie [facility] Respiratory rate 17 /min 17 /min [facility] Oxygen 98 % 98 % [place] saturation in Medical Arterial blood Center by Pulse oximetry Heart rate 76 /min 76 /min [facility] Diastolic blood 81 mm[Hg] 81 mm[Hg] [facility] [place] Systolic blood 149 mm[Hg] 149 mm[Hg] [facility] Body temperature 36.429127 Kaylie 36.516412 Kaylie [facility] Respiratory rate 18 /min 18 /min [facility] Oxygen 96 % 96 % [place] saturation in Medical Arterial blood Center by Pulse oximetry Heart rate 89 /min 89 /min [facility] Diastolic blood 68 mm[Hg] 68 mm[Hg] [facility] Systolic blood 132 mm[Hg] 132 mm[Hg] [facility] Body temperature 36.530060 Kaylie 36.283968 Kaylie [facility] Respiratory rate 18 /min 18 /min [facility] Oxygen 96 % 96 % [place] saturation in Medical Arterial blood Center by Pulse oximetry Heart rate 84 /min 84 /min [facility] Diastolic blood 71 mm[Hg] 71 mm[Hg] [facility] Systolic blood 119 mm[Hg] 119 mm[Hg] [facility] Body temperature 36.771871 Kaylie 36.222951 Kaylie [facility] Respiratory rate 19 /min 19 /min [facility] Oxygen 96 % 96 % [place] saturation in Medical Arterial blood Center by Pulse oximetry Heart rate 83 /min 83 /min [facility] Diastolic blood 66 mm[Hg] 66 mm[Hg] [facility] pressure [facility] Center Systolic blood 123 mm[Hg] 123 mm[Hg] [facility] [place] Body temperature 36.106275 Kaylie 36.968354 Kaylie [facility] Respiratory rate 18 /min 18 /min [facility] Oxygen 98 % 98 % [place] saturation in Medical Arterial blood Center by Pulse oximetry Heart rate 76 /min 76 /min [facility] Diastolic blood 80 mm[Hg] 80 mm[Hg] [facility] Systolic blood 115 mm[Hg] 115 mm[Hg] [facility] [place] Body temperature 36.887738 Kaylie 36.024725 Kaylie [facility] Body temperature 36.848180 Kaylie 36.578266 Kaylie [facility] Respiratory rate 18 /min 18 /min [facility] Oxygen 96 % 96 % [place] saturation in Medical Arterial blood Center by Pulse oximetry Heart rate 88 /min 88 /min [facility] Diastolic blood 72 mm[Hg] 72 mm[Hg] [facility] [place] Systolic blood 111 mm[Hg] 111 mm[Hg] [facility] Body temperature 36.475454 Kaylie 36.344505 Kaylie [facility] Respiratory rate 18 /min 18 /min [facility] Oxygen 96 % 96 % [place] saturation in Medical Arterial blood Center by Pulse oximetry Heart rate 87 /min 87 /min [facility] Diastolic blood 85 mm[Hg] 85 mm[Hg] [facility] Systolic blood 136 mm[Hg] 136 mm[Hg] [facility] Body temperature 36.768276 Kaylie 36.851855 Kaylie [facility] Respiratory rate 17 /min 17 /min [facility] Oxygen 91 % 91 % [place] saturation in Medical Arterial blood Center by Pulse oximetry Heart rate 87 /min 87 /min [facility] Diastolic blood 97 mm[Hg] 97 mm[Hg] [facility] Systolic blood 152 mm[Hg] 152 mm[Hg] [facility] Body temperature 36.615896 Kaylie 36.838246 Kaylie [facility] Respiratory rate 20 /min 20 /min [facility] Oxygen 91 % 91 % [place] saturation in Medical Arterial blood Center by Pulse oximetry Heart rate 77 /min 77 /min [facility] Diastolic blood 78 mm[Hg] 78 mm[Hg] [facility] Systolic blood 140 mm[Hg] 140 mm[Hg] [facility] Body weight 105.052902 kg 105.319849 kg [facility] [place] Body temperature 37.065640 Kaylie 37.947323 Kaylie [facility] Respiratory rate 20 /min 20 /min [facility] Oxygen 92 % 92 % [place] saturation in Medical Arterial blood Center by Pulse oximetry Heart rate 89 /min 89 /min [facility] Diastolic blood 79 mm[Hg] 79 mm[Hg] [facility] [place] Systolic blood 155 mm[Hg] 155 mm[Hg] [facility] Body temperature 36.664688 Kaylie 36.614174 Kaylie [facility] Respiratory rate 16 /min 16 /min [facility] Oxygen 98 % 98 % [place] saturation in Medical Arterial blood Center by Pulse oximetry Heart rate 81 /min 81 /min [facility] Diastolic blood 73 mm[Hg] 73 mm[Hg] [facility] Systolic blood 126 mm[Hg] 126 mm[Hg] [facility] Body temperature 36.284064 Kaylie 36.343116 Kaylie [facility] Respiratory rate 17 /min 17 /min [facility] Oxygen 98 % 98 % [place] saturation in Medical Arterial blood Center by Pulse oximetry Heart rate 67 /min 67 /min [facility] Diastolic blood 63 mm[Hg] 63 mm[Hg] [facility] Systolic blood 134 mm[Hg] 134 mm[Hg] [facility] Body temperature 36.269336 Kaylie 36.212788 Kaylie [facility] Respiratory rate 18 /min 18 /min [facility] Oxygen 97 % 97 % [place] saturation in Medical Arterial blood Center by Pulse oximetry Heart rate 69 /min 69 /min [facility] Diastolic blood 73 mm[Hg] 73 mm[Hg] [facility] Systolic blood 119 mm[Hg] 119 mm[Hg] [facility] Body temperature 36.214660 Kaylie 36.218947 Kaylie [facility] Respiratory rate 17 /min 17 /min [facility] Oxygen 98 % 98 % [place] saturation in Medical Arterial blood Center by Pulse oximetry Heart rate 71 /min 71 /min [facility] Diastolic blood 69 mm[Hg] 69 mm[Hg] [facility] pressure [facility] Center Systolic blood 127 mm[Hg] 127 mm[Hg] [facility] [place] Body temperature 36.792013 Kaylie 36.315590 Kaylie [facility] Respiratory rate 16 /min 16 /min [facility] Oxygen 100 % 100 % [place] saturation in Medical Arterial blood Center by Pulse oximetry Heart rate 74 /min 74 /min [facility] Diastolic blood 85 mm[Hg] 85 mm[Hg] [facility] [place] Systolic blood 130 mm[Hg] 130 mm[Hg] [facility] [place] Body temperature 37.265074 Kaylie 37.793552 Kaylie [facility] Respiratory rate 18 /min 18 /min [facility] Oxygen 95 % 95 % [place] saturation in Medical Arterial blood Center by Pulse oximetry Heart rate 77 /min 77 /min [facility] Diastolic blood 86 mm[Hg] 86 mm[Hg] [facility] [place] Systolic blood 154 mm[Hg] 154 mm[Hg] [facility] Body temperature 36.133931 Kaylie 36.386389 Kaylie [facility] Respiratory rate 18 /min 18 /min [facility] Oxygen 98 % 98 % [place] saturation in Medical Arterial blood Center by Pulse oximetry Heart rate 80 /min 80 /min [facility] Diastolic blood 90 mm[Hg] 90 mm[Hg] [facility] Systolic blood 170 mm[Hg] 170 mm[Hg] [facility] [place] Body temperature 36.025300 Kaylie 36.247448 Kaylie [facility] Respiratory rate 18 /min 18 /min [facility] Oxygen 95 % 95 % [place] saturation in Medical Arterial blood Center by Pulse oximetry Heart rate 70 /min 70 /min [facility] Diastolic blood 103 mm[Hg] 103 mm[Hg] [facility] Systolic blood 166 mm[Hg] 166 mm[Hg] [facility] Body temperature 36.780005 Kaylie 36.760806 Kaylie [facility] Respiratory rate 18 /min 18 /min [facility] Oxygen 97 % 97 % [place] saturation in Medical Arterial blood Center by Pulse oximetry Heart rate 87 /min 87 /min [facility] Diastolic blood 72 mm[Hg] 72 mm[Hg] [facility] Systolic blood 138 mm[Hg] 138 mm[Hg] [facility] Body temperature 36.490073 Kaylie 36.899226 Kaylie [facility] Respiratory rate 16 /min 16 /min [facility] Oxygen 98 % 98 % [place] saturation in Medical Arterial blood Center by Pulse oximetry Heart rate 74 /min 74 /min [facility] Diastolic blood 71 mm[Hg] 71 mm[Hg] [facility] Systolic blood 146 mm[Hg] 146 mm[Hg] [facility] Body weight 102.464997 kg 102.709267 kg [facility] Body temperature 36.026075 Kaylie 36.853831 Kaylie [facility] Respiratory rate 17 /min 17 /min [facility] Oxygen 98 % 98 % [place] saturation in Medical Arterial blood Center by Pulse oximetry Heart rate 78 /min 78 /min [facility] Body height 177.014212 cm 177.257040 cm [facility] Diastolic blood 78 mm[Hg] 78 mm[Hg] [facility] Systolic blood 118 mm[Hg] 118 mm[Hg] [facility] Body mass index 32.2 kg/m2 32.2 kg/m2 [facility] (BMI) [Ratio] Medical Center Body temperature 37.498599 Kaylie 37.136669 Kaylie [facility] Respiratory rate 18 /min 18 /min [facility] Oxygen 99 % 99 % [place] saturation in Medical Arterial blood Center by Pulse oximetry Heart rate 88 /min 88 /min [facility] Diastolic blood 79 mm[Hg] 79 mm[Hg] [facility] Systolic blood 134 mm[Hg] 134 mm[Hg] [facility] Body temperature 37.437875 Kaylie 37.831886 Kaylie [facility] Respiratory rate 18 /min 18 /min [facility] Oxygen 95 % 95 % [place] saturation in Medical Arterial blood Center by Pulse oximetry Heart rate 82 /min 82 /min [facility] Diastolic blood 79 mm[Hg] 79 mm[Hg] [facility] pressure [facility] Center Systolic blood 144 mm[Hg] 144 mm[Hg] [facility] [place] Body temperature 37.145118 Kaylie 37.515605 Kaylie [facility] Respiratory rate 18 /min 18 /min [facility] Oxygen 95 % 95 % [place] saturation in Medical Arterial blood Center by Pulse oximetry Heart rate 86 /min 86 /min [facility] Diastolic blood 92 mm[Hg] 92 mm[Hg] [facility] Systolic blood 112 mm[Hg] 112 mm[Hg] [facility] Body temperature 37.550459 Kaylie 37.791642 Kaylie [facility] Respiratory rate 19 /min 19 /min [facility] Oxygen 90 % 90 % [place] saturation in Medical Arterial blood Center by Pulse oximetry Heart rate 84 /min 84 /min [facility] Diastolic blood 92 mm[Hg] 92 mm[Hg] [facility] Systolic blood 142 mm[Hg] 142 mm[Hg] [facility] Body temperature 36.413709 Kaylie 36.477415 Kaylie [facility] Respiratory rate 20 /min 20 /min [facility] Oxygen 90 % 90 % [place] saturation in Medical Arterial blood Center by Pulse oximetry Heart rate 88 /min 88 /min [facility] Diastolic blood 97 mm[Hg] 97 mm[Hg] [facility] pressure [facility] Center Systolic blood 127 mm[Hg] 127 mm[Hg] [facility] Body temperature 36.225297 Kaylie 36.551849 Kaylie [facility] Respiratory rate 18 /min 18 /min [facility] Oxygen 99 % 99 % [place] saturation in Medical Arterial blood Center by Pulse oximetry Heart rate 78 /min 78 /min [facility] Diastolic blood 80 mm[Hg] 80 mm[Hg] [facility] Systolic blood 144 mm[Hg] 144 mm[Hg] [facility] Body temperature 36.645846 Kaylie 36.978831 Kaylie [facility] Respiratory rate 18 /min 18 /min [facility] Oxygen 97 % 97 % [place] saturation in Medical Arterial blood Center by Pulse oximetry Heart rate 88 /min 88 /min [facility] Diastolic blood 76 mm[Hg] 76 mm[Hg] [facility] [place] Systolic blood 148 mm[Hg] 148 mm[Hg] [facility] [place] Body temperature 36.673480 Kaylie 36.426683 Kaylie [facility] Respiratory rate 19 /min 19 /min [facility] Oxygen 96 % 96 % [place] saturation in Medical Arterial blood Center by Pulse oximetry Heart rate 100 /min 100 /min [facility] Diastolic blood 68 mm[Hg] 68 mm[Hg] [facility] [place] Systolic blood 121 mm[Hg] 121 mm[Hg] [facility] Body temperature 37.471275 Kaylie 37.548828 Kaylie [facility] Respiratory rate 17 /min 17 /min [facility] Oxygen 98 % 98 % [facility] [place] saturation in Medical Arterial blood Center by Pulse oximetry Heart rate 105 /min 105 /min [facility] Diastolic blood 65 mm[Hg] 65 mm[Hg] [facility] [place] Systolic blood 119 mm[Hg] 119 mm[Hg] [facility] Body temperature 36.514666 Kaylie 36.386916 Kaylie [facility] Respiratory rate 17 /min 17 /min [facility] Oxygen 98 % 98 % [facility] [place] saturation in Medical Arterial blood Center by Pulse oximetry Heart rate 100 /min 100 /min [facility] Diastolic blood 73 mm[Hg] 73 mm[Hg] [facility] Systolic blood 121 mm[Hg] 121 mm[Hg] [facility] Body temperature 36.676868 Kaylie 36.859897 Kaylie [facility] Respiratory rate 17 /min 17 /min [facility] Oxygen 98 % 98 % [facility] [place] saturation in Medical Arterial blood Center by Pulse oximetry Heart rate 69 /min 69 /min [facility] Diastolic blood 75 mm[Hg] 75 mm[Hg] [facility] pressure [facility] Center Systolic blood 129 mm[Hg] 129 mm[Hg] [facility] Body temperature 36.730628 Kaylie 36.389928 Kaylie [facility] Respiratory rate 18 /min 18 /min [facility] Oxygen 98 % 98 % [facility] [place] saturation in Medical Arterial blood Center by Pulse oximetry Heart rate 82 /min 82 /min [facility] Diastolic blood 73 mm[Hg] 73 mm[Hg] [facility] Systolic blood 128 mm[Hg] 128 mm[Hg] [facility] Body temperature 36.984327 Kaylie 36.800834 Kaylie [facility] Respiratory rate 18 /min 18 /min [facility] Oxygen 96 % 96 % [facility] [place] saturation in Medical Arterial blood Center by Pulse oximetry Heart rate 81 /min 81 /min [facility] Diastolic blood 78 mm[Hg] 78 mm[Hg] [facility] Systolic blood 126 mm[Hg] 126 mm[Hg] [facility] Body temperature 36.909332 Kaylie 36.879093 Kaylie [facility] Respiratory rate 18 /min 18 /min [facility] Oxygen 97 % 97 % [facility] [place] saturation in Medical Arterial blood Center by Pulse oximetry Heart rate 79 /min 79 /min [facility] Diastolic blood 72 mm[Hg] 72 mm[Hg] [facility] Systolic blood 129 mm[Hg] 129 mm[Hg] [facility] Body temperature 36.958212 Kaylie 36.972786 Kaylie [facility] Respiratory rate 17 /min 17 /min [facility] Oxygen 98 % 98 % [facility] [place] saturation in Medical Arterial blood Center by Pulse oximetry Heart rate 88 /min 88 /min [facility] Diastolic blood 71 mm[Hg] 71 mm[Hg] [facility] Systolic blood 126 mm[Hg] 126 mm[Hg] [facility] Body temperature 36.663903 Kaylie 36.320975 Kaylie [facility] Respiratory rate 18 /min 18 /min [facility] Oxygen 98 % 98 % [facility] [place] saturation in Medical Arterial blood Center by Pulse oximetry Heart rate 76 /min 76 /min [facility] Diastolic blood 72 mm[Hg] 72 mm[Hg] [facility] Center Systolic blood 126 mm[Hg] 126 mm[Hg] [facility] Systolic blood 132 mm[Hg] 132 mm[Hg] [facility] Body temperature 36.170363 Kaylie 36.923427 Kaylie [facility] Respiratory rate 17 /min 17 /min [facility] Oxygen 97 % 97 % [facility] [place] saturation in Medical Arterial blood Center by Pulse oximetry Heart rate 90 /min 90 /min [facility] Diastolic blood 85 mm[Hg] 85 mm[Hg] [facility] [place] Body temperature 37.173034 Kaylie 37.342232 Kaylie [facility] Respiratory rate 18 /min 18 /min [facility] Oxygen 95 % 95 % [facility] [place] saturation in Medical Arterial blood Center by Pulse oximetry Heart rate 95 /min 95 /min [facility] Diastolic blood 96 mm[Hg] 96 mm[Hg] [facility] [place] Systolic blood 147 mm[Hg] 147 mm[Hg] [facility] Body temperature 36.496971 Kaylie 36.289795 Kaylie [facility] Respiratory rate 17 /min 17 /min [facility] Oxygen 95 % 95 % [facility] [place] saturation in Medical Arterial blood Center by Pulse oximetry Heart rate 94 /min 94 /min [facility] Diastolic blood 90 mm[Hg] 90 mm[Hg] [facility] Systolic blood 163 mm[Hg] 163 mm[Hg] [facility] [place] Body temperature 36.140007 Kaylie 36.352161 Kaylie [facility] Respiratory rate 17 /min 17 /min [facility] Oxygen 98 % 98 % [facility] [place] saturation in Medical Arterial blood Center by Pulse oximetry Heart rate 96 /min 96 /min [facility] Diastolic blood 70 mm[Hg] 70 mm[Hg] [facility] Systolic blood 122 mm[Hg] 122 mm[Hg] [facility] Body temperature 36.939804 Kaylie 36.441312 Kaylie [facility] Respiratory rate 17 /min 17 /min [facility] Oxygen 98 % 98 % [place] saturation in Medical Arterial blood Center by Pulse oximetry Heart rate 70 /min 70 /min [facility] Diastolic blood 65 mm[Hg] 65 mm[Hg] [facility] pressure [facility] Center Systolic blood 127 mm[Hg] 127 mm[Hg] [facility] Body temperature 36.508675 Kaylie 36.190842 Kaylie [facility] Respiratory rate 16 /min 16 /min [facility] Oxygen 95 % 95 % [facility] [place] saturation in Medical Arterial blood Center by Pulse oximetry Heart rate 94 /min 94 /min [facility] Diastolic blood 86 mm[Hg] 86 mm[Hg] [facility] Center Systolic blood 140 mm[Hg] 140 mm[Hg] [facility] [place] Body temperature 36.678001 Kaylie 36.895035 Kaylie [facility] Respiratory rate 6 /min 6 /min [facility] Oxygen 96 % 96 % [facility] [place] saturation in Medical Arterial blood Center by Pulse oximetry Heart rate 101 /min 101 /min [facility] Diastolic blood 90 mm[Hg] 90 mm[Hg] [facility] Systolic blood 156 mm[Hg] 156 mm[Hg] [facility] [place] Body temperature 36.643355 Kaylie 36.261100 Kaylie [facility] Diastolic blood 78 mm[Hg] 78 mm[Hg] [facility] Systolic blood 138 mm[Hg] 138 mm[Hg] [facility] [place] Respiratory rate 18 /min 18 /min [facility] Oxygen 97 % 97 % [facility] [place] saturation in Medical Arterial blood Center by Pulse oximetry Heart rate 87 /min 87 /min [facility] Body temperature 36.156285 Kaylie 36.926501 Kaylie [facility] Respiratory rate 18 /min 18 /min [facility] Oxygen 96 % 96 % [facility] [place] saturation in Medical Ar[facility] blood Center by Pulse oximetry Heart rate 96 /min 96 /min [facility] Diastolic blood 90 mm[Hg] 90 mm[Hg] [facility] Center Systolic blood 150 mm[Hg] 150 mm[Hg] [facility] Body temperature 37.462673 Kaylie 37.910466 Kaylie [facility] Respiratory rate 18 /min 18 /min [facility] Oxygen 96 % 96 % [facility] [place] saturation in Medical Ar[facility] blood Center by Pulse oximetry Heart rate 108 /min 108 /min [facility] Diastolic blood 63 mm[Hg] 63 mm[Hg] [facility] Systolic blood 110 mm[Hg] 110 mm[Hg] [facility] Body weight 116.455511 kg 116.868497 kg [facility] Body height 177.612867 cm 177.137291 cm [facility] Body mass index 36.8 kg/m2 36.8 kg/m2 [facility] (BMI) [Ratio] [facility] Center Body temperature 36.521364 Kaylie 36.011470 Kaylie [facility] Respiratory rate 18 /min 18 /min [facility] Oxygen 98 % 98 % [place] saturation in Medical Arterial blood Center by Pulse oximetry Heart rate 82 /min 82 /min [facility] Diastolic blood 90 mm[Hg] 90 mm[Hg] [facility] Systolic blood 135 mm[Hg] 135 mm[Hg] [facility] Body temperature 36.162348 Kaylie 36.966866 Kaylie [facility] Respiratory rate 18 /min 18 /min [facility] Oxygen 98 % 98 % [facility] [place] saturation in Medical Arter[facility] blood Center by Pulse oximetry Heart rate 80 /min 80 /min [facility] Diastolic blood 80 mm[Hg] 80 mm[Hg] [facility] Systolic blood 124 mm[Hg] 124 mm[Hg] [facility] Body temperature 37.967967 Kaylie 37.961000 Kaylie [facility] Respiratory rate 17 /min 17 /min [facility] Oxygen 98 % 98 % [facility] [place] saturation in Medical Arterial blood Center by Pulse oximetry Heart rate 90 /min 90 /min [facility] Diastolic blood 75 mm[Hg] 75 mm[Hg] [facility] Center Systolic blood 119 mm[Hg] 119 mm[Hg] [facility] Body temperature 37.418064 Kaylie 37.903072 Kaylie [facility] Respiratory rate 18 /min 18 /min [facility] Oxygen 95 % 95 % [place] saturation in Medical Arterial blood Center by Pulse oximetry Heart rate 96 /min 96 /min [facility] Diastolic blood 71 mm[Hg] 71 mm[Hg] [facility] Systolic blood 106 mm[Hg] 106 mm[Hg] [facility] Body temperature 37.816918 Kaylie 37.994089 Kaylie [facility] Respiratory rate 18 /min 18 /min [facility] Oxygen 96 % 96 % [place] saturation in Medical Arterial blood Center by Pulse oximetry Heart rate 96 /min 96 /min [facility] Diastolic blood 65 mm[Hg] 65 mm[Hg] [facility] [place] Systolic blood 116 mm[Hg] 116 mm[Hg] [facility] [place] Body temperature 36.627635 Kaylie 36.800852 Kaylie [facility] Respiratory rate 17 /min 17 /min [facility] Oxygen 96 % 96 % [place] saturation in Medical Arterial blood Center by Pulse oximetry Heart rate 90 /min 90 /min [facility] Diastolic blood 74 mm[Hg] 74 mm[Hg] [facility] [place] Systolic blood 129 mm[Hg] 129 mm[Hg] [facility] [place] Body temperature 37.793428 Kaylie 37.784751 Kaylie [facility] Respiratory rate 17 /min 17 /min [facility] Oxygen 96 % 96 % [place] saturation in Medical Arter[facility] blood Center by Pulse oximetry Heart rate 93 /min 93 /min [facility] Diastolic blood 59 mm[Hg] 59 mm[Hg] [facility] Systolic blood 101 mm[Hg] 101 mm[Hg] [facility] Body temperature 37.554247 Kaylie 37.922139 Kaylie [facility] Respiratory rate 18 /min 18 /min [facility] Oxygen 98 % 98 % [place] saturation in Medical Arterial blood Center by Pulse oximetry Heart rate 89 /min 89 /min [facility] Diastolic blood 86 mm[Hg] 86 mm[Hg] [facility] Systolic blood 132 mm[Hg] 132 mm[Hg] [facility] Body temperature 37.132678 Kaylie 37.286173 Kaylie [facility] Respiratory rate 18 /min 18 /min [facility] Oxygen 99 % 99 % [facility] [place] saturation in Medical Arter[facility] blood Center by Pulse oximetry Heart rate 71 /min 71 /min [facility] Diastolic blood 75 mm[Hg] 75 mm[Hg] [facility] Systolic blood 131 mm[Hg] 131 mm[Hg] [facility] Body temperature 37.851124 Kaylie 37.630140 Kaylie [facility] Respiratory rate 18 /min 18 /min [facility] Oxygen 95 % 95 % [place] saturation in Medical Arterial blood Center by Pulse oximetry Heart rate 104 /min 104 /min [facility] Diastolic blood 90 mm[Hg] 90 mm[Hg] [facility] pressure [facility] Systolic blood 154 mm[Hg] 154 mm[Hg] [facility] [place] Oxygen 96 % 96 % [place] saturation in Medical Arterial blood Center by Pulse oximetry Heart rate 100 /min 100 /min [facility] Diastolic blood 78 mm[Hg] 78 mm[Hg] [facility] Systolic blood 148 mm[Hg] 148 mm[Hg] [facility] Body temperature 37.172177 Kaylie 37.620262 Kaylie [facility] Respiratory rate 19 /min 19 /min [facility] Body temperature 36.716132 Kaylie 36.702569 Kaylie [facility] Respiratory rate 18 /min 18 /min [facility] Oxygen 97 % 97 % [place] saturation in Medical Arterial blood Center by Pulse oximetry Heart rate 100 /min 100 /min [facility] Diastolic blood 84 mm[Hg] 84 mm[Hg] [facility] Systolic blood 145 mm[Hg] 145 mm[Hg] [facility] Body weight 104.089804 kg 104.984847 kg [facility] Body height 177.075970 cm 177.591083 cm [facility] Body mass index 33.0 kg/m2 33.0 kg/m2 [facility] (BMI) [Ratio] [facility] [place] Body temperature 36.664512 Kaylie 36.162354 Kaylie [facility] Respiratory rate 18 /min 18 /min [facility] Oxygen 95 % 95 % [place] saturation in Medical Arterial blood Center by Pulse oximetry Heart rate 99 /min 99 /min [facility] Diastolic blood 60 mm[Hg] 60 mm[Hg] [facility] Systolic blood 112 mm[Hg] 112 mm[Hg] [facility] [place] Body temperature 36.727307 Kaylie 36.650221 Kaylie [facility] Respiratory rate 18 /min 18 /min [facility] Oxygen 95 % 95 % [place] saturation in Medical Ar[facility] blood Center by Pulse oximetry Heart rate 89 /min 89 /min [facility] Diastolic blood 62 mm[Hg] 62 mm[Hg] [facility] [place] Systolic blood 102 mm[Hg] 102 mm[Hg] [facility] Body temperature 37.400856 Kaylie 37.409986 Kaylie [facility] Respiratory rate 17 /min 17 /min [facility] Oxygen 95 % 95 % [place] saturation in Medical Ar[facility] blood Center by Pulse oximetry Heart rate 92 /min 92 /min [facility] Diastolic blood 66 mm[Hg] 66 mm[Hg] [facility] [place] Systolic blood 102 mm[Hg] 102 mm[Hg] [facility] Body temperature 36.571510 Kaylie 36.567678 Kaylie [facility] Respiratory rate 17 /min 17 /min [facility] Oxygen 93 % 93 % [place] saturation in Medical Ar[facility] blood Center by Pulse oximetry Heart rate 69 /min 69 /min [facility] Diastolic blood 69 mm[Hg] 69 mm[Hg] [facility] Systolic blood 125 mm[Hg] 125 mm[Hg] [facility] Body temperature 36.499327 Kaylie 36.392237 Kaylie [facility] Respiratory rate 18 /min 18 /min [facility] Oxygen 95 % 95 % [place] saturation in Medical Ar[facility] blood Center by Pulse oximetry Heart rate 67 /min 67 /min [facility] Diastolic blood 68 mm[Hg] 68 mm[Hg] [facility] Systolic blood 125 mm[Hg] 125 mm[Hg] [facility] [place] Body temperature 36.190348 Kaylie 36.776176 Kaylie [facility] Respiratory rate 17 /min 17 /min [facility] Oxygen 96 % 96 % [facility] [place] saturation in Medical Arter[facility] blood Center by Pulse oximetry Heart rate 89 /min 89 /min [facility] Diastolic blood 88 mm[Hg] 88 mm[Hg] [facility] pressure [facility] Systolic blood 143 mm[Hg] 143 mm[Hg] [facility] Oxygen 98 % 98 % [place] saturation in Medical Arter[facility] blood Center by Pulse oximetry Heart rate 75 /min 75 /min [facility] Diastolic blood 68 mm[Hg] 68 mm[Hg] [facility] pressure [facility] Systolic blood 129 mm[Hg] 129 mm[Hg] [facility] Body temperature 37.827941 Kaylie 37.268361 Kaylie [facility] Respiratory rate 17 /min 17 /min [facility] Respiratory rate 16 /min 16 /min [facility] Oxygen 93 % 93 % [facility] [place] saturation in Medical Ar[facility] blood Center by Pulse oximetry Heart rate 92 /min 92 /min [facility] Diastolic blood 72 mm[Hg] 72 mm[Hg] [facility] pressure [facility] Systolic blood 143 mm[Hg] 143 mm[Hg] [facility] [place] Body temperature 37.332990 Kaylie 37.493368 Kaylie [facility] Respiratory rate 18 /min 18 /min [facility] Oxygen 98 % 98 % [place] saturation in Medical Arterial blood Center by Pulse oximetry Heart rate 86 /min 86 /min [facility] Diastolic blood 57 mm[Hg] 57 mm[Hg] [facility] Systolic blood 119 mm[Hg] 119 mm[Hg] [facility] [place] Body temperature 37.921577 Kaylie 37.013793 Kaylie [facility] Respiratory rate 16 /min 16 /min [facility] Oxygen 92 % 92 % [place] saturation in Medical Arterial blood Center by Pulse oximetry Heart rate 88 /min 88 /min [facility] Diastolic blood 56 mm[Hg] 56 mm[Hg] [facility] pressure [facility] Center Systolic blood 90 mm[Hg] 90 mm[Hg] [facility] Body weight 90.190473 kg 90.543807 kg [facility] [place] Body temperature 37.238166 Kaylie 37.963269 Kaylie [facility] Respiratory rate 19 /min 19 /min [facility] Oxygen 93 % 93 % [facility] [place] saturation in Medical Ar[facility] blood Center by Pulse oximetry Heart rate 84 /min 84 /min [facility] Body height 177.705371 cm 177.390137 cm [facility] Diastolic blood 48 mm[Hg] 48 mm[Hg] [facility] pressure [facility] Systolic blood 100 mm[Hg] 100 mm[Hg] [facility] Body mass index 28.4 kg/m2 28.4 kg/m2 [facility] (BMI) [Ratio] [facility] Body temperature 37.886579 Kaylie 37.523058 Kaylie [facility] Respiratory rate 18 /min 18 /min [facility] Oxygen 98 % 98 % [place] saturation in Medical Arterial blood Center by Pulse oximetry Heart rate 89 /min 89 /min [facility] Diastolic blood 78 mm[Hg] 78 mm[Hg] [facility] pressure [facility] Systolic blood 145 mm[Hg] 145 mm[Hg] [facility] Body temperature 37.133005 Kaylie 37.070406 Kaylie [facility] Respiratory rate 20 /min 20 /min [facility] Oxygen 95 % 95 % [facility] [place] saturation in Medical Arterial blood Center by Pulse oximetry Diastolic blood 90 mm[Hg] 90 mm[Hg] [facility] Systolic blood 154 mm[Hg] 154 mm[Hg] [facility] Body temperature 37.283111 Kaylie 37.630503 Kaylie [facility] Respiratory rate 20 /min 20 /min [facility] Oxygen 95 % 95 % [place] saturation in Medical Arterial blood Center by Pulse oximetry Heart rate 91 /min 91 /min [facility] Diastolic blood 90 mm[Hg] 90 mm[Hg] [facility] Systolic blood 142 mm[Hg] 142 mm[Hg] [facility] Body temperature 36.911679 Kaylie 36.417383 Kaylie [facility] Respiratory rate 20 /min 20 /min [facility] Oxygen 98 % 98 % [place] saturation in Medical Arterial blood Center by Pulse oximetry Heart rate 95 /min 95 /min [facility] Diastolic blood 61 mm[Hg] 61 mm[Hg] [facility] Systolic blood 102 mm[Hg] 102 mm[Hg] [facility] Body temperature 36.187499 Kaylie 36.840584 Kaylie [facility] Respiratory rate 19 /min 19 /min [facility] Oxygen 96 % 96 % [place] saturation in Medical Arterial blood Center by Pulse oximetry Heart rate 74 /min 74 /min [facility] Diastolic blood 74 mm[Hg] 74 mm[Hg] [facility] Systolic blood 132 mm[Hg] 132 mm[Hg] [facility] Body weight 79.753975 kg 79.142692 kg [facility] Heart rate 71 /min 71 /min [facility] Body height 182.037901 cm 182.032010 cm [facility] Body mass index 23.7 kg/m2 23.7 kg/m2 [facility] (BMI) [Ratio] Medical [facility] Body temperature 37.034488 Kaylie 37.193141 Kaylie [facility] Respiratory rate 18 /min 18 /min [facility] Oxygen 96 % 96 % [place] saturation in Medical Arterial blood Center by Pulse oximetry Heart rate 87 /min 87 /min [facility] Diastolic blood 69 mm[Hg] 69 mm[Hg] [facility] Systolic blood 129 mm[Hg] 129 mm[Hg] [facility] Body temperature 36.850907 Kaylie 36.198461 Kaylie [facility] Respiratory rate 18 /min 18 /min [facility] Oxygen 95 % 95 % [place] saturation in Medical Arterial blood Center by Pulse oximetry Heart rate 87 /min 87 /min [facility] Diastolic blood 75 mm[Hg] 75 mm[Hg] [facility] Systolic blood 122 mm[Hg] 122 mm[Hg] [facility] Body temperature 37.817312 Kaylie 37.716115 Kaylie [facility] Respiratory rate 19 /min 19 /min [facility] Oxygen 95 % 95 % [place] saturation in Medical Arterial blood Center by Pulse oximetry Heart rate 90 /min 90 /min [facility] Diastolic blood 78 mm[Hg] 78 mm[Hg] [facility] Systolic blood 124 mm[Hg] 124 mm[Hg] [facility] Body temperature 37.616291 Kaylie 37.449274 Kaylie [facility] Respiratory rate 19 /min 19 /min [facility] Oxygen 95 % 95 % [place] saturation in Medical Arterial blood Center by Pulse oximetry Heart rate 85 /min 85 /min [facility] Diastolic blood 70 mm[Hg] 70 mm[Hg] [facility] Systolic blood 129 mm[Hg] 129 mm[Hg] [facility] Body weight 104.112504 kg 104.211348 kg [facility] [facility] Body temperature 37.868449 Kaylie 37.920367 Kaylie [facility] Respiratory rate 86 /min 86 /min [facility] Oxygen 95 % 95 % [place] saturation in Medical Arter[facility] blood Center by Pulse oximetry Heart rate 86 /min 86 /min [facility] Body height 177.472563 cm 177.380907 cm [facility] Diastolic blood 74 mm[Hg] 74 mm[Hg] [facility] Systolic blood 137 mm[Hg] 137 mm[Hg] [facility] Body mass index 33.0 kg/m2 33.0 kg/m2 [facility] (BMI) [Ratio] [facility] Body temperature 36.168802 Kaylie 36.181883 Kaylie [facility] Respiratory rate 18 /min 18 /min [facility] Oxygen 92 % 92 % [place] saturation in Medical Arterial blood Center by Pulse oximetry Heart rate 100 /min 100 /min [facility] Diastolic blood 65 mm[Hg] 65 mm[Hg] [facility] Center Systolic blood 135 mm[Hg] 135 mm[Hg] [facility] Body temperature 37.839708 Kaylie 37.891428 Kaylie [facility] Respiratory rate 18 /min 18 /min [facility] Oxygen 95 % 95 % [place] saturation in Medical Arterial blood Center by Pulse oximetry Heart rate 97 /min 97 /min [facility] Diastolic blood 89 mm[Hg] 89 mm[Hg] [facility] Center Systolic blood 157 mm[Hg] 157 mm[Hg] [facility] Body temperature 37.093349 Kaylie 37.454286 Kaylie [facility] Respiratory rate 18 /min 18 /min [facility] Oxygen 95 % 95 % [place] saturation in Medical Arterial blood Center by Pulse oximetry Heart rate 91 /min 91 /min [facility] Diastolic blood 60 mm[Hg] 60 mm[Hg] [facility] [place] Systolic blood 118 mm[Hg] 118 mm[Hg] [facility] Body weight 104.870934 kg 104.231115 kg [facility] Body temperature 36.631556 Kaylie 36.256253 Kaylie [facility] Respiratory rate 17 /min 17 /min [facility] Oxygen 95 % 95 % [place] saturation in Medical Arterial blood Center by Pulse oximetry Heart rate 89 /min 89 /min [facility] Body height 177.416476 cm 177.441955 cm [facility] Diastolic blood 88 mm[Hg] 88 mm[Hg] [facility] [place] Systolic blood 127 mm[Hg] 127 mm[Hg] [facility] Body mass index 33.0 kg/m2 33.0 kg/m2 [facility] (BMI) [Ratio] [facility] Center Body temperature 36.681672 Kaylie 36.576316 Kaylie [facility] Respiratory rate 17 /min 17 /min [facility] Oxygen 98 % 98 % [place] saturation in Medical Arterial blood Center by Pulse oximetry Heart rate 88 /min 88 /min [facility] Diastolic blood 82 mm[Hg] 82 mm[Hg] [facility] Systolic blood 138 mm[Hg] 138 mm[Hg] [facility] Body temperature 36.462759 Kaylie 36.092545 Kaylie [facility] Respiratory rate 18 /min 18 /min [facility] Oxygen 98 % 98 % [place] saturation in Medical Arterial blood Center by Pulse oximetry Heart rate 87 /min 87 /min [facility] Diastolic blood 84 mm[Hg] 84 mm[Hg] [facility] Systolic blood 145 mm[Hg] 145 mm[Hg] [facility] Body temperature 36.857366 Kaylie 36.537810 Kaylie [facility] Respiratory rate 18 /min 18 /min [facility] Oxygen 97 % 97 % [place] saturation in Medical Arterial blood Center by Pulse oximetry Heart rate 87 /min 87 /min [facility] Diastolic blood 97 mm[Hg] 97 mm[Hg] [facility] pressure Medical Center Systolic blood 154 mm[Hg] 154 mm[Hg] [facility] Body temperature 36.584409 Kaylie 36.219003 Kaylie [facility] Respiratory rate 18 /min 18 /min [facility] Oxygen 98 % 98 % [place] saturation in Medical Arterial blood Center by Pulse oximetry Heart rate 88 /min 88 /min [facility] Diastolic blood 78 mm[Hg] 78 mm[Hg] [facility] pressure [facility] Center Systolic blood 145 mm[Hg] 145 mm[Hg] [facility] Body temperature 36.885616 Kaylie 36.758947 Kaylie [facility] Respiratory rate 18 /min 18 /min [facility] Oxygen 97 % 97 % [place] saturation in Medical Arterial blood Center by Pulse oximetry Heart rate 77 /min 77 /min [facility] Diastolic blood 71 mm[Hg] 71 mm[Hg] [facility] pressure Medical Center Systolic blood 126 mm[Hg] 126 mm[Hg] [facility] Body temperature 36.502284 Kaylie 36.286223 Kaylie [facility] Respiratory rate 17 /min 17 /min [facility] Oxygen 94 % 94 % [place] saturation in Medical Arterial blood Center by Pulse oximetry Heart rate 54 /min 54 /min [facility] Diastolic blood 64 mm[Hg] 64 mm[Hg] [facility] pressure [facility] Center Systolic blood 113 mm[Hg] 113 mm[Hg] [facility] Respiratory rate 16 /min 16 /min [facility] Oxygen 97 % 97 % [place] saturation in Medical Arterial blood Center by Pulse oximetry Heart rate 52 /min 52 /min [facility] Diastolic blood 80 mm[Hg] 80 mm[Hg] [facility] pressure [facility] Center Systolic blood 130 mm[Hg] 130 mm[Hg] [facility] Body temperature 36.187785 Kaylie 36.664567 Kaylie [facility] Respiratory rate 18 /min 18 /min [facility] Oxygen 96 % 96 % [place] saturation in Medical Arterial blood Center by Pulse oximetry Heart rate 96 /min 96 /min [facility] Diastolic blood 75 mm[Hg] 75 mm[Hg] [facility] pressure [facility] Center Systolic blood 129 mm[Hg] 129 mm[Hg] [facility] Body temperature 37.150988 Kaylie 37.303118 Kaylie [facility] Respiratory rate 19 /min 19 /min [facility] Oxygen 96 % 96 % [place] saturation in Medical Arterial blood Center by Pulse oximetry Heart rate 98 /min 98 /min [facility] Diastolic blood 77 mm[Hg] 77 mm[Hg] [facility] Systolic blood 132 mm[Hg] 132 mm[Hg] [facility] Body temperature 36.366863 Kaylie 36.085930 Kaylie [facility] Respiratory rate 16 /min 16 /min [facility] Oxygen 95 % 95 % [place] saturation in Medical Arterial blood Center by Pulse oximetry Heart rate 95 /min 95 /min [facility] Diastolic blood 70 mm[Hg] 70 mm[Hg] [facility] [place] Systolic blood 118 mm[Hg] 118 mm[Hg] [facility] Body temperature 36.903234 Kaylie 36.338237 Kaylie [facility] Respiratory rate 18 /min 18 /min [facility] Oxygen 96 % 96 % [place] saturation in Medical Arterial blood Center by Pulse oximetry Heart rate 100 /min 100 /min [facility] Diastolic blood 72 mm[Hg] 72 mm[Hg] [facility] Systolic blood 126 mm[Hg] 126 mm[Hg] [facility] Body temperature 36.393772 Kaylie 36.519085 Kaylie [facility] Respiratory rate 18 /min 18 /min [facility] Oxygen 97 % 97 % [place] saturation in Medical Arterial blood Center by Pulse oximetry Heart rate 88 /min 88 /min [facility] Diastolic blood 75 mm[Hg] 75 mm[Hg] [facility] Systolic blood 145 mm[Hg] 145 mm[Hg] [facility] Body temperature 36.548865 Kaylie 36.909495 Kaylie [facility] Respiratory rate 18 /min 18 /min [facility] Oxygen 97 % 97 % [place] saturation in Medical Arterial blood Center by Pulse oximetry Heart rate 88 /min 88 /min [facility] Diastolic blood 73 mm[Hg] 73 mm[Hg] [facility] pressure [facility] Center Systolic blood 128 mm[Hg] 128 mm[Hg] [facility] [place] Body temperature 36.557487 Kaylie 36.441975 Kaylie [facility] Respiratory rate 18 /min 18 /min [facility] Oxygen 96 % 96 % [place] saturation in Medical Arterial blood Center by Pulse oximetry Heart rate 95 /min 95 /min [facility] Diastolic blood 89 mm[Hg] 89 mm[Hg] [facility] pressure [facility] Center Systolic blood 131 mm[Hg] 131 mm[Hg] [facility] [place] Body temperature 37.248493 Kaylie 37.770698 Kaylie [facility] Respiratory rate 18 /min 18 /min [facility] Oxygen 98 % 98 % [place] saturation in Medical Arterial blood Center by Pulse oximetry Heart rate 89 /min 89 /min [facility] Diastolic blood 78 mm[Hg] 78 mm[Hg] [facility] Systolic blood 145 mm[Hg] 145 mm[Hg] [facility] Body temperature 36.866111 Kaylie 36.500611 Kaylie [facility] Respiratory rate 18 /min 18 /min [facility] Oxygen 97 % 97 % [place] saturation in Medical Arterial blood Center by Pulse oximetry Heart rate 92 /min 92 /min [facility] Diastolic blood 95 mm[Hg] 95 mm[Hg] [facility] pressure [facility] Center Systolic blood 150 mm[Hg] 150 mm[Hg] [facility] [place] Body temperature 36.543798 Kaylie 36.524181 Kaylie [facility] Respiratory rate 18 /min 18 /min [facility] Oxygen 95 % 95 % [place] saturation in Medical Arterial blood Center by Pulse oximetry Heart rate 88 /min 88 /min [facility] Diastolic blood 83 mm[Hg] 83 mm[Hg] [facility] pressure [facility] Center Systolic blood 139 mm[Hg] 139 mm[Hg] [facility] Body temperature 36.757949 Kaylie 36.986241 Kaylie [facility] Respiratory rate 19 /min 19 /min [facility] Oxygen 97 % 97 % [place] saturation in Medical Arterial blood Center by Pulse oximetry Heart rate 87 /min 87 /min [facility] Diastolic blood 95 mm[Hg] 95 mm[Hg] [facility] Systolic blood 137 mm[Hg] 137 mm[Hg] [facility] Body temperature 36.870544 Kaylie 36.413129 Kaylie [facility] Respiratory rate 18 /min 18 /min [facility] Oxygen 97 % 97 % [place] saturation in Medical Arterial blood Center by Pulse oximetry Heart rate 82 /min 82 /min [facility] Diastolic blood 84 mm[Hg] 84 mm[Hg] [facility] Systolic blood 122 mm[Hg] 122 mm[Hg] [facility] [place] Body temperature 36.862476 Kaylie 36.969422 Kaylie [facility] Respiratory rate 18 /min 18 /min [facility] Oxygen 98 % 98 % [place] saturation in Medical Arterial blood Center by Pulse oximetry Heart rate 89 /min 89 /min [facility] Diastolic blood 74 mm[Hg] 74 mm[Hg] [facility] Systolic blood 124 mm[Hg] 124 mm[Hg] [facility] Body temperature 36.159594 Kaylie 36.898982 Kaylie [facility] Respiratory rate 19 /min 19 /min [facility] Oxygen 98 % 98 % [place] saturation in Medical Arterial blood Center by Pulse oximetry Heart rate 85 /min 85 /min [facility] Diastolic blood 79 mm[Hg] 79 mm[Hg] [facility] Systolic blood 136 mm[Hg] 136 mm[Hg] [facility] Body temperature 37.270681 Kaylie 37.358034 Kaylie [facility] Respiratory rate 17 /min 17 /min [facility] Oxygen 97 % 97 % [place] saturation in Medical Arterial blood Center by Pulse oximetry Heart rate 77 /min 77 /min [facility] Diastolic blood 74 mm[Hg] 74 mm[Hg] [facility] pressure [facility] Center Systolic blood 109 mm[Hg] 109 mm[Hg] [facility] Body temperature 36.745532 Kaylie 36.090621 Kaylie [facility] Respiratory rate 18 /min 18 /min [facility] Oxygen 96 % 96 % [place] saturation in Medical Arterial blood Center by Pulse oximetry Heart rate 82 /min 82 /min [facility] Diastolic blood 79 mm[Hg] 79 mm[Hg] [facility] pressure [facility] Center Systolic blood 112 mm[Hg] 112 mm[Hg] [facility] Body weight 80.369491 kg 80.288993 kg [facility] Measured [facility] Body height 172.430109 cm 172.559723 cm [facility] Body mass index 26.8 kg/m2 26.8 kg/m2 [facility] (BMI) [Ratio] [facility] Center Body weight 80.535307 kg 80.941039 kg [facility] Measured [facility] Body height 172.549856 cm 172.268472 cm [facility] Body mass index 26.8 kg/m2 26.8 kg/m2 [facility] (BMI) [Ratio] [facility] Body temperature 36.537317 Kaylie 36.267983 Kaylie [facility] Respiratory rate 19 /min 19 /min [facility] Oxygen 100 % 100 % [place] saturation in Medical Arterial blood Center by Pulse oximetry Heart rate 85 /min 85 /min [facility] Diastolic blood 77 mm[Hg] 77 mm[Hg] [facility] Center Systolic blood 117 mm[Hg] 117 mm[Hg] [facility] Body temperature 37.343196 Kaylie 37.290790 Kaylie [facility] Respiratory rate 18 /min 18 /min [facility] Oxygen 95 % 95 % [place] saturation in Medical Arterial blood Center by Pulse oximetry Heart rate 76 /min 76 /min [facility] Diastolic blood 64 mm[Hg] 64 mm[Hg] [facility] pressure [facility] Systolic blood 125 mm[Hg] 125 mm[Hg] [facility] Body temperature 37.612918 Kaylie 37.765926 Kaylie [facility] Respiratory rate 19 /min 19 /min [facility] Oxygen 95 % 95 % [place] saturation in Medical Arterial blood Center by Pulse oximetry Heart rate 77 /min 77 /min [facility] Diastolic blood 63 mm[Hg] 63 mm[Hg] [facility] Systolic blood 113 mm[Hg] 113 mm[Hg] [facility] Body weight 104.347122 kg 104.503596 kg [facility] Body temperature 36.208269 Kaylie 36.755190 Kaylie [facility] Respiratory rate 17 /min 17 /min [facility] Oxygen 92 % 92 % [place] saturation in Medical Arterial blood Center by Pulse oximetry Heart rate 84 /min 84 /min [facility] Body height 177.709728 cm 177.916020 cm [facility] Diastolic blood 83 mm[Hg] 83 mm[Hg] [facility] pressure [facility] Center Systolic blood 136 mm[Hg] 136 mm[Hg] [facility] Body mass index 33.0 kg/m2 33.0 kg/m2 [facility] (BMI) [Ratio] [facility] Body temperature 36.991215 Kaylie 36.595552 Kaylie [facility] Respiratory rate 19 /min 19 /min [facility] Oxygen 96 % 96 % [place] saturation in Medical Arterial blood Center by Pulse oximetry Heart rate 89 /min 89 /min [facility] Diastolic blood 70 mm[Hg] 70 mm[Hg] [facility] Systolic blood 137 mm[Hg] 137 mm[Hg] [facility] Body temperature 36.681167 Kaylie 36.895026 Kaylie [facility] Respiratory rate 18 /min 18 /min [facility] Oxygen 99 % 99 % [place] saturation in Medical Arterial blood Center by Pulse oximetry Heart rate 78 /min 78 /min [facility] Diastolic blood 78 mm[Hg] 78 mm[Hg] [facility] Systolic blood 144 mm[Hg] 144 mm[Hg] [facility] Oxygen 99 % 99 % [place] saturation in Medical Arterial blood Center by Pulse oximetry Respiratory rate 18 /min 18 /min [facility] Oxygen 90 % 90 % [place] saturation in Medical Arterial blood Center by Pulse oximetry Heart rate 72 /min 72 /min [facility] Diastolic blood 66 mm[Hg] 66 mm[Hg] [facility] Systolic blood 144 mm[Hg] 144 mm[Hg] [facility] Body temperature 36.773537 Kaylie 36.260760 Kaylie [facility] Respiratory rate 18 /min 18 /min [facility] Heart rate 80 /min 80 /min [facility] Diastolic blood 82 mm[Hg] 82 mm[Hg] [facility] Systolic blood 141 mm[Hg] 141 mm[Hg] [facility] Body temperature 36.650035 Kaylie 36.592500 Kaylie [facility] Oxygen 92 % 92 % [facility] saturation in Medical Arterial blood Center by Pulse oximetry Heart rate 79 /min 79 /min [facility] Diastolic blood 84 mm[Hg] 84 mm[Hg] [facility] Systolic blood 139 mm[Hg] 139 mm[Hg] [facility] Systolic blood 159 mm[Hg] 159 mm[Hg] [facility] Body mass index 33.0 kg/m2 33.0 kg/m2 [facility] (BMI) [Ratio] [facility] Center Body weight 104.381366 kg 104.198565 kg [facility] Body temperature 37.010975 Kaylie 37.653496 Kaylie [facility] Respiratory rate 18 /min 18 /min [facility] Oxygen 97 % 97 % [facility] saturation in Medical Arterial blood Center by Pulse oximetry Heart rate 69 /min 69 /min [facility] Body height 177.754193 cm 177.400538 cm [facility] Diastolic blood 100 mm[Hg] 100 mm[Hg] [facility] Body temperature 36.105198 Kaylie 36.418719 Kaylie [facility] Respiratory rate 18 /min 18 /min [facility] Oxygen 97 % 97 % [facility] saturation in Medical Arterial blood Center by Pulse oximetry Heart rate 88 /min 88 /min [facility] Diastolic blood 97 mm[Hg] 97 mm[Hg] [facility] Center Systolic blood 152 mm[Hg] 152 mm[Hg] [facility] Body temperature 37.250676 Kaylie 37.603233 Kaylie [facility] Respiratory rate 18 /min 18 /min [facility] Oxygen 97 % 97 % [place] saturation in Medical Arterial blood Center by Pulse oximetry Heart rate 87 /min 87 /min [facility] Diastolic blood 87 mm[Hg] 87 mm[Hg] [facility] pressure [facility] Center Systolic blood 145 mm[Hg] 145 mm[Hg] [facility] Body temperature 36.451022 Kaylie 36.082639 Kaylie [facility] Respiratory rate 17 /min 17 /min [facility] Oxygen 94 % 94 % [place] saturation in Medical Arterial blood Center by Pulse oximetry Heart rate 98 /min 98 /min [facility] Diastolic blood 68 mm[Hg] 68 mm[Hg] [facility] pressure [facility] Center Systolic blood 144 mm[Hg] 144 mm[Hg] [facility] Body temperature 36.735067 Kaylie 36.749828 Kaylie [facility] Respiratory rate 18 /min 18 /min [facility] Oxygen 97 % 97 % [place] saturation in Medical Arterial blood Center by Pulse oximetry Heart rate 88 /min 88 /min [facility] Diastolic blood 72 mm[Hg] 72 mm[Hg] [facility] Systolic blood 144 mm[Hg] 144 mm[Hg] [facility] [place] Body temperature 36.560480 Kaylie 36.151417 Kaylie [facility] Respiratory rate 19 /min 19 /min [facility] Heart rate 90 /min 90 /min [facility] Diastolic blood 74 mm[Hg] 74 mm[Hg] [facility] Systolic blood 121 mm[Hg] 121 mm[Hg] [facility] [place] Body temperature 37.620192 Kaylie 37.373003 Kaylie [facility] Respiratory rate 17 /min 17 /min [facility] Oxygen 89 % 89 % [place] saturation in Medical Arterial blood Center by Pulse oximetry Heart rate 110 /min 110 /min [facility] Diastolic blood 76 mm[Hg] 76 mm[Hg] [facility] pressure [facility] Center Systolic blood 115 mm[Hg] 115 mm[Hg] [facility] Body temperature 36.032295 Kaylie 36.764415 Kaylie [facility] Respiratory rate 18 /min 18 /min [facility] Oxygen 100 % 100 % [place] saturation in Medical Arterial blood Center by Pulse oximetry Heart rate 80 /min 80 /min [facility] Diastolic blood 78 mm[Hg] 78 mm[Hg] [facility] pressure [facility] Center Systolic blood 128 mm[Hg] 128 mm[Hg] [facility] Body temperature 36.355465 Kaylie 36.603656 Kaylie [facility] Respiratory rate 19 /min 19 /min [facility] Oxygen 96 % 96 % [place] saturation in Medical Arterial blood Center by Pulse oximetry Heart rate 69 /min 69 /min [facility] Diastolic blood 78 mm[Hg] 78 mm[Hg] [facility] pressure [facility] Center Systolic blood 128 mm[Hg] 128 mm[Hg] [facility] Body weight 95.654529 kg 95.867867 kg [facility] Body temperature 36.789030 Kaylie 36.150252 Kaylie [facility] Respiratory rate 18 /min 18 /min [facility] Oxygen 96 % 96 % [place] saturation in Medical Arterial blood Center by Pulse oximetry Heart rate 95 /min 95 /min [facility] Body height 182.467637 cm 182.439326 cm [facility] Diastolic blood 80 mm[Hg] 80 mm[Hg] [facility] pressure [facility] Center Systolic blood 130 mm[Hg] 130 mm[Hg] [facility] Body mass index 28.4 kg/m2 28.4 kg/m2 [facility] (BMI) [Ratio] Medical Center Body temperature 36.244652 Kaylie 36.210539 Kaylie [facility] Respiratory rate 16 /min 16 /min [facility] Oxygen 97 % 97 % [place] saturation in Medical Arterial blood Center by Pulse oximetry Heart rate 74 /min 74 /min [facility] Diastolic blood 77 mm[Hg] 77 mm[Hg] [facility] pressure [facility] Center Systolic blood 131 mm[Hg] 131 mm[Hg] [facility] Body temperature 36.537803 Kaylie 36.208425 Kaylie [facility] Respiratory rate 18 /min 18 /min [facility] Oxygen 99 % 99 % [place] saturation in Medical Arterial blood Center by Pulse oximetry Heart rate 82 /min 82 /min [facility] Diastolic blood 82 mm[Hg] 82 mm[Hg] [facility] pressure [facility] Center Systolic blood 135 mm[Hg] 135 mm[Hg] [facility] Body weight 120.776507 kg 120.244866 kg [facility] Body temperature 36.661675 Kaylie 36.572063 Kaylie [facility] Respiratory rate 16 /min 16 /min [facility] Oxygen 96 % 96 % [place] saturation in Medical Arterial blood Center by Pulse oximetry Heart rate 67 /min 67 /min [facility] Diastolic blood 67 mm[Hg] 67 mm[Hg] [facility] pressure Medical Center Systolic blood 115 mm[Hg] 115 mm[Hg] [facility] Oxygen 90 % 90 % [place] saturation in Medical Arterial blood Center by Pulse oximetry Heart rate 109 /min 109 /min [facility] Diastolic blood 62 mm[Hg] 62 mm[Hg] [facility] Systolic blood 103 mm[Hg] 103 mm[Hg] [facility] Center Body temperature 37.176001 Kalyie 37.121467 Kaylie [facility] Respiratory rate 18 /min 18 /min [facility] Body weight 113.528068 kg 113.318443 kg [facility]asured [facility] Body temperature 36.777445 Kaylie 36.439880 Kaylie [facility] Respiratory rate 18 /min 18 /min [facility] Oxygen 96 % 96 % [place] saturation in Medical Arterial blood Center by Pulse oximetry Heart rate 82 /min 82 /min [facility] Body height 177.441249 cm 177.487183 cm [facility] Diastolic blood 82 mm[Hg] 82 mm[Hg] [facility] Systolic blood 136 mm[Hg] 136 mm[Hg] [facility] Body mass index 35.8 kg/m2 35.8 kg/m2 [facility] (BMI) [Ratio] Medical Center Body temperature 37.582048 Kaylie 37.593508 Kaylie [facility] Respiratory rate 18 /min 18 /min [facility] Oxygen 96 % 96 % [place] saturation in Medical Arterial blood Center by Pulse oximetry Heart rate 88 /min 88 /min [facility] Diastolic blood 86 mm[Hg] 86 mm[Hg] [facility] pressure Medical Center Systolic blood 118 mm[Hg] 118 mm[Hg] [facility] Body temperature 36.564349 Kaylie 36.499916 Kaylie [facility] Respiratory rate 18 /min 18 /min [facility] Oxygen 98 % 98 % [place] saturation in Medical Arterial blood Center by Pulse oximetry Heart rate 79 /min 79 /min [facility] Diastolic blood 78 mm[Hg] 78 mm[Hg] [facility] pressure Medical Center Systolic blood 121 mm[Hg] 121 mm[Hg] [facility] Body temperature 36.325246 Kaylie 36.693561 Kaylie [facility] Respiratory rate 19 /min 19 /min [facility] Oxygen 96 % 96 % [place] saturation in Medical Arterial blood Center by Pulse oximetry Heart rate 81 /min 81 /min [facility] Diastolic blood 74 mm[Hg] 74 mm[Hg] [facility] Systolic blood 118 mm[Hg] 118 mm[Hg] [facility] [place] Body temperature 37.822836 Kaylie 37.233589 Kaylie [facility] Respiratory rate 18 /min 18 /min [facility] Oxygen 96 % 96 % [place] saturation in Medical Arterial blood Center by Pulse oximetry Heart rate 96 /min 96 /min [facility] Diastolic blood 59 mm[Hg] 59 mm[Hg] [facility] Systolic blood 94 mm[Hg] 94 mm[Hg] [facility] [place] Body temperature 37.720811 Kaylie 37.304600 Kaylie [facility] Respiratory rate 19 /min 19 /min [facility] Oxygen 95 % 95 % [place] saturation in Medical Arterial blood Center by Pulse oximetry Heart rate 88 /min 88 /min [facility] Diastolic blood 53 mm[Hg] 53 mm[Hg] [facility] Systolic blood 93 mm[Hg] 93 mm[Hg] [facility] [place] Body weight 74.555545 kg 74.559657 kg [facility] Body temperature 36.592130 Kaylie 36.288627 Kaylie [facility] Respiratory rate 18 /min 18 /min [facility] Oxygen 100 % 100 % [place] saturation in Medical Arterial blood Center by Pulse oximetry Heart rate 94 /min 94 /min [facility] Body height 182.369524 cm 182.628292 cm [facility] Diastolic blood 59 mm[Hg] 59 mm[Hg] [facility] pressure Medical Center Systolic blood 100 mm[Hg] 100 mm[Hg] [facility] Center Body mass index 22.3 kg/m2 22.3 kg/m2 [facility] (BMI) [Ratio] Medical Center Body temperature 37.909547 Kaylie 37.203051 Kaylie [facility] Respiratory rate 18 /min 18 /min [facility] Oxygen 95 % 95 % [place] saturation in Medical Arterial blood Center by Pulse oximetry Heart rate 88 /min 88 /min [facility] Diastolic blood 78 mm[Hg] 78 mm[Hg] [facility] Systolic blood 132 mm[Hg] 132 mm[Hg] [facility] Body temperature 37.633682 Kaylie 37.887131 Kaylie [facility] Respiratory rate 17 /min 17 /min [facility] Oxygen 94 % 94 % [place] saturation in Medical Arterial blood Center by Pulse oximetry Heart rate 80 /min 80 /min [facility] Diastolic blood 84 mm[Hg] 84 mm[Hg] [facility] Systolic blood 134 mm[Hg] 134 mm[Hg] [facility] Body temperature 37.840622 Kaylie 37.494261 Kaylie [facility] Respiratory rate 19 /min 19 /min [facility] Oxygen 95 % 95 % [place] saturation in Medical Arterial blood Center by Pulse oximetry Heart rate 87 /min 87 /min [facility] Diastolic blood 75 mm[Hg] 75 mm[Hg] [facility] Systolic blood 137 mm[Hg] 137 mm[Hg] [facility] Body temperature 36.313853 Kaylie 36.663571 Kaylie [facility] Respiratory rate 18 /min 18 /min [facility] Oxygen 93 % 93 % [place] saturation in Medical Arterial blood Center by Pulse oximetry Heart rate 81 /min 81 /min [facility] Diastolic blood 77 mm[Hg] 77 mm[Hg] [facility] Systolic blood 137 mm[Hg] 137 mm[Hg] [facility] Body temperature 37.445100 Kaylie 37.400663 Kaylie [facility] Respiratory rate 19 /min 19 /min [facility] Oxygen 96 % 96 % [place] saturation in Medical Arterial blood Center by Pulse oximetry Heart rate 96 /min 96 /min [facility] Diastolic blood 75 mm[Hg] 75 mm[Hg] [facility] Systolic blood 129 mm[Hg] 129 mm[Hg] [facility] Body temperature 37.768219 Kaylie 37.236845 Kaylie [facility] Respiratory rate 18 /min 18 /min [facility] Oxygen 97 % 97 % [place] saturation in Medical Arterial blood Center by Pulse oximetry Heart rate 99 /min 99 /min [facility] Diastolic blood 72 mm[Hg] 72 mm[Hg] [facility] Systolic blood 131 mm[Hg] 131 mm[Hg] [facility] Body temperature 37.432509 Kaylie 37.365083 Kaylie [facility] Respiratory rate 19 /min 19 /min [facility] Oxygen 98 % 98 % [place] saturation in Medical Arterial blood Center by Pulse oximetry Heart rate 84 /min 84 /min [facility] Diastolic blood 85 mm[Hg] 85 mm[Hg] [facility] Systolic blood 131 mm[Hg] 131 mm[Hg] [facility] Body temperature 37.644677 Kaylie 37.936717 Kaylie [facility] Respiratory rate 18 /min 18 /min [facility] Oxygen 98 % 98 % [place] saturation in Medical Arterial blood Center by Pulse oximetry Heart rate 85 /min 85 /min [facility] Diastolic blood 88 mm[Hg] 88 mm[Hg] [facility] Systolic blood 126 mm[Hg] 126 mm[Hg] [facility] Body temperature 37.701551 Kaylie 37.558976 Kaylie [facility] Respiratory rate 18 /min 18 /min [facility] Oxygen 98 % 98 % [place] saturation in Medical Arterial blood Center by Pulse oximetry Heart rate 90 /min 90 /min [facility] Diastolic blood 85 mm[Hg] 85 mm[Hg] [facility] pressure Medical Center Systolic blood 139 mm[Hg] 139 mm[Hg] [facility] Center Body weight 85.685888 kg 85.422567 kg [facility] Measured [facility] Body height 177.795057 cm 177.003471 cm [facility] Body mass index 26.8 kg/m2 26.8 kg/m2 [facility] (BMI) [Ratio] Medical Center Body temperature 36.084171 Kaylie 36.028299 Kaylie [facility] Respiratory rate 16 /min 16 /min [facility] Oxygen 96 % 96 % [place] saturation in Medical Arterial blood Center by Pulse oximetry Heart rate 71 /min 71 /min [facility] Diastolic blood 66 mm[Hg] 66 mm[Hg] [facility] Systolic blood 115 mm[Hg] 115 mm[Hg] [facility] Body temperature 36.951016 Kaylie 36.218391 Kaylie [facility] Respiratory rate 16 /min 16 /min [facility] Oxygen 96 % 96 % [place] saturation in Medical Arterial blood Center by Pulse oximetry Heart rate 75 /min 75 /min [facility] Diastolic blood 74 mm[Hg] 74 mm[Hg] [facility] Center Systolic blood 121 mm[Hg] 121 mm[Hg] [facility] Body temperature 36.319901 Kaylie 36.933826 Kaylie [facility] Respiratory rate 17 /min 17 /min [facility] Oxygen 98 % 98 % [place] saturation in Medical Arterial blood Center by Pulse oximetry Heart rate 84 /min 84 /min [facility] Diastolic blood 70 mm[Hg] 70 mm[Hg] [facility] Systolic blood 118 mm[Hg] 118 mm[Hg] [facility] Body temperature 37.555409 Kaylie 37.432784 Kaylie [facility] Respiratory rate 18 /min 18 /min [facility] Oxygen 97 % 97 % [place] saturation in Medical Arterial blood Center by Pulse oximetry Heart rate 86 /min 86 /min [facility] Diastolic blood 87 mm[Hg] 87 mm[Hg] [facility] [place] Systolic blood 136 mm[Hg] 136 mm[Hg] [facility] Body temperature 36.127648 Kaylie 36.561991 Kaylie [facility] Respiratory rate 18 /min 18 /min [facility] Heart rate 89 /min 89 /min [facility] Diastolic blood 90 mm[Hg] 90 mm[Hg] [facility] [place] Systolic blood 134 mm[Hg] 134 mm[Hg] [facility] Body temperature 36.507830 Kaylie 36.231849 Kaylie [facility] Respiratory rate 18 /min 18 /min [facility] Heart rate 94 /min 94 /min [facility] Diastolic blood 83 mm[Hg] 83 mm[Hg] [facility] Systolic blood 136 mm[Hg] 136 mm[Hg] [facility] Body temperature 37.289667 Kaylie 37.201901 Kaylie [facility] Respiratory rate 20 /min 20 /min [facility] Heart rate 87 /min 87 /min [facility] Diastolic blood 73 mm[Hg] 73 mm[Hg] [facility] Systolic blood 132 mm[Hg] 132 mm[Hg] [facility] Body temperature 36.363034 Kaylie 36.206493 Kaylie [facility] Respiratory rate 20 /min 20 /min [facility] Heart rate 82 /min 82 /min [facility] Diastolic blood 81 mm[Hg] 81 mm[Hg] [facility] [place] Systolic blood 123 mm[Hg] 123 mm[Hg] [facility] Oxygen 94 % 94 % [facility] saturation in Medical Arterial blood Center by Pulse oximetry Body temperature 36.585513 Kaylie 36.782968 Kaylie [facility] Respiratory rate 17 /min 17 /min [facility] Heart rate 91 /min 91 /min [facility] Diastolic blood 79 mm[Hg] 79 mm[Hg] [facility] Systolic blood 143 mm[Hg] 143 mm[Hg] [facility] [place] Body weight 104.459132 kg 104.374736 kg [facility] [place] Body temperature 36.068842 Kaylie 36.759656 Kaylie [facility] Respiratory rate 17 /min 17 /min [facility] Oxygen 98 % 98 % [place] saturation in Medical Arterial blood Center by Pulse oximetry Heart rate 94 /min 94 /min [facility] Diastolic blood 74 mm[Hg] 74 mm[Hg] [facility] pressure Medical Center Systolic blood 106 mm[Hg] 106 mm[Hg] [facility] Body temperature 36.168269 Kaylie 36.827704 Kaylie [facility] Respiratory rate 17 /min 17 /min [facility] Oxygen 96 % 96 % [place] saturation in Medical Arterial blood Center by Pulse oximetry Heart rate 98 /min 98 /min [facility] Diastolic blood 76 mm[Hg] 76 mm[Hg] [facility] pressure Medical Center Systolic blood 134 mm[Hg] 134 mm[Hg] [facility] Respiratory rate 18 /min 18 /min [facility] Oxygen 97 % 97 % [place] saturation in Medical Arterial blood Center by Pulse oximetry Heart rate 78 /min 78 /min [facility] Diastolic blood 68 mm[Hg] 68 mm[Hg] [facility] pressure Medical Center Systolic blood 126 mm[Hg] 126 mm[Hg] [facility] [place] Body temperature 36.985551 Kaylie 36.231798 Kaylie [facility] Respiratory rate 18 /min 18 /min [facility] Oxygen 100 % 100 % [place] saturation in Medical Arterial blood Center by Pulse oximetry Heart rate 71 /min 71 /min [facility] Diastolic blood 66 mm[Hg] 66 mm[Hg] [facility] pressure Medical Center Systolic blood 125 mm[Hg] 125 mm[Hg] [facility] [place] Body temperature 36.371250 Kaylie 36.670000 Kaylie [facility] Respiratory rate 18 /min 18 /min [facility] Oxygen 99 % 99 % [place] saturation in Medical Arterial blood Center by Pulse oximetry Heart rate 89 /min 89 /min [facility] Diastolic blood 81 mm[Hg] 81 mm[Hg] [facility] pressure Medical Center Systolic blood 132 mm[Hg] 132 mm[Hg] [facility] Body temperature 36.432367 Kaylie 36.509959 Kaylie [facility] Respiratory rate 17 /min 17 /min [facility] Oxygen 97 % 97 % [facility] saturation in Medical Arterial blood Center by Pulse oximetry Heart rate 86 /min 86 /min [facility] Diastolic blood 50 mm[Hg] 50 mm[Hg] [facility] pressure [facility] Systolic blood 80 mm[Hg] 80 mm[Hg] [facility] pressure Medical Center ID Date Data Source [id number] 02/27/2020 10:28:08 PM EDT [facility] Name Value Range Interpretation Code Description Data Source(s) Body weight Measured 233 lb 233 lb [facility] Patient Treatment Plan of Care Planned Activity Planned Date Details Description Data Source (s) 0.9% NaCl IV 08/16/2019 05:17:42 PM [facility] 0.9% NaCl IV 08/16/2019 05:17:42 PM [facility]
--- NOTE | 2020-03-30 20:44 | PDOC ---
History of Present Illness - General Chief Complaint: Back Pain Stated Complaint: BACK PAIN Time Seen by Provider: 03/30/20 20:37 - History of Present Illness Initial Comments: 03/30/20 20:38 HPI: 65 y/o M with hx of COVID-19, mesothelioma with long history of EtOH abuse, chronic back pain, and multiple ER visits and admission secondary to EtOH abuse BIBEMS for alcohol intoxication. Patient is complaining of his normal chornic back pain without any change in intensity or frequency. He denies any other complaints and is requesting to be left to sleep PMHx: as noted above ROS: as noted SHx: Denies tobacco use; +alcohol use; no rec drugs Allergies: NKDA ROS: GENERAL/CONSTITUTIONAL: No fever or chills. No weakness. HEAD, EYES, EARS, NOSE AND THROAT: No change in vision. No ear pain or discharge. No sore throat. CARDIOVASCULAR: No chest pain or shortness of breath RESPIRATORY: No cough, wheezing, or hemoptysis. GASTROINTESTINAL: No nausea, vomiting, diarrhea or constipation. GENITOURINARY: No dysuria, frequency, or change in urination. MUSCULOSKELETAL:+ back pain. SKIN: No rash NEUROLOGIC: No headache, vertigo, loss of consciousness, or change in strength/sensation. ENDOCRINE: No increased thirst. No abnormal weight change HEMATOLOGIC/LYMPHATIC: No anemia, easy bleeding, or history of blood clots. ALLERGIC/IMMUNOLOGIC: No hives or skin allergy. PE: GENERAL: Awake, disheveled HEAD: No signs of trauma, normocephalic, atraumatic EYES: EOMI, sclera anicteric, conjunctiva clear ENT: Auricles normal inspection, hearing grossly normal, nares patent, oropharynx clear without exudates. Moist mucosa. NECK: Normal ROM, no lymphadenopathy LUNGS: No increased work of breathing, upper airway transmitted sounds HEART: Regular rate, regular rhythm ABDOMEN: Soft, nondistended, nontender MUSCULOSKELETAL: FROM NEUROLOGICAL: Cranial nerves II through XII grossly intact. Normal speech, stable gait, no focal sensorimotor deficits SKIN: Warm, Dry, normal turgor, no rashes or lesions noted Past History - Medical History Allergies/Adverse Reactions: Allergies Allergy/AdvReac Type Severity Reaction Status Date / Time Fish Containing Products Allergy Mild Swelling Verified 03/30/20 19:05 No Known Drug Allergies Allergy Verified 03/30/20 19:05 Home Medications: Ambulatory Orders NK [No Known Home Medication] 03/05/20 Anemia: No Asthma: No Cancer: Yes (mesothelioma lung cancer) Cardiac Disorders: No CVA: No COPD: No CHF: No DVT: No Dementia: No Diabetes: No Dialysis: No GI Disorders: No Disorders: No HTN: Yes (non compliant with meds.) Hypercholesterolemia: Yes Kidney Stones: No Liver Disease: Yes (ETOH abuse) Psychiatric Problems: Yes (ETOH abuse) Seizures: No Thyroid Disease: No Lung CA: Yes (Mesothelioma) - Surgical History Abdominal Surgery: No Appendectomy: No Cardiac Surgery: No Cholecystectomy: No Lung Surgery: No Neurologic Surgery: No Orthopedic Surgery: No - Reproductive History Testicular Surgery: No - Immunization History Td Vaccination: Yes TDAP Vaccination: Yes Immunization Up to Date: Yes - Psycho-Social/Smoking History Smoking Status: No Smoking History: Never smoked Have you smoked in the past 12 months: No Number of Cigarettes Smoked Daily: 0 If you are a former smoker, when did you quit?: 0 Cigars Per Day: 0 'Breaking Loose' booklet given: 09/22/17 - Substance Abuse Hx (Audit-C & DAST Scrn) How often the patient has a drink containing alcohol: 4 0r more times/wk Number of drinks the patient has on a typical day: 5 or 6 How often the patient has six or more drinks on one occasion: Weekly Score: In Men: 4 or > Positive; In Women: 3 or > Positive: 9 Screen Result (Pos requires Nsg. Audit-10AR): Positive In the last yr the pt used illegal drug/Rx for NonMed reason: No Score: Yes response is considered Positive: 0 Screen Result (Positive result requires Nsg. DAST-10): Negative *Physical Exam - Vital Signs Last Vital Signs Temp Pulse Resp BP Pulse Ox 98.1 F 90 16 131/72 100 03/30/20 19:05 03/30/20 19:05 03/30/20 19:05 03/30/20 19:05 03/30/20 19:05 Medical Decision Making - Medical Decision Making 03/30/20 23:09 65 y/o M with hx of COVID-19, mesothelioma with long history of EtOH abuse, chronic back pain, and multiple ER visits and admission secondary to EtOH abuse BIBEMS for alcohol intoxication and chronic back pain -patient refusing medications and interventions -will reassess 03/31/20 03:15 patient without complaints will anticipate DC after clinically sober Discharge - Discharge Information Problems reviewed: Yes Clinical Impression/Diagnosis: Alcohol intoxication Condition: Stable Disposition: HOME - Follow up/Referral - Patient Discharge Instructions Patient Printed Discharge Instructions: DI for Alcohol Use Disorder Additional Instructions: Additional Instructions: Please return to the emergency department with any new or worsening symptoms or concerns. Please follow up with your primary care physician within 72 hours. - Post Discharge Activity
--- NOTE | 2020-03-30 21:25 | PDOC ---
Documentation entered by Mat Shaw SCRIBE, acting as scribe for Amada Alamo MD. Amada Alamo MD: This documentation has been prepared by the Colin pereira Xhesika, SCRIBE, under my direction and personally reviewed by me in its entirety. I confirm that the documentation accurately reflects all work, treatment, procedures, and medical decision making performed by me. Attending Attestation - Resident Resident Name: Bianca Frausto - ED Attending Attestation I have performed the following: I have examined & evaluated the patient, The case was reviewed & discussed with the resident, I agree w/resident's findings & plan - HPI HPI: 03/30/20 20:54 The patient is a 65 year old male with past medical history significant for etoh abuse, chronic back pain, mesothelioma, HTN and HLD who presents to the emergency department BIBA for etoh intoixation. pt h/o etoh abuse, near daily visits to ED. Patient currently denies all acute complaints. Allergies: Fish containing products Past Medical History: See HPI Social history: Daily ETOH abuse Meds: as documented in EMR - Physicial Exam PE: 03/30/20 21:01 Agree with the resident's HPI and PE as documented in the electronic medical record. +disheveled, intoxicated, appearing older than stated age. NCAT, EOMI, PERRL, nl conjunctiva, anicteric; neck supple. lungs clear, RRR, abdomen soft nontender. Back nontender. DICKEY x4, no focal neuro deficits. No peripheral edema. normal color for ethnicity, WWP. 03/30/20 21:24 - Medical Decision Making 03/30/20 21:25 Vital Signs Temp Pulse Resp BP Pulse Ox 98.1 F 90 16 131/72 100 03/30/20 19:05 03/30/20 19:05 03/30/20 19:05 03/30/20 19:05 03/30/20 19:05 03/30/20 23:22 DDx. alcohol intoxication, alcohol withdrawal. drug intoxication vitals reviewed, wnl. Patient demonstrates clinical evidence for alcohol intoxication. The patient admits to intentional heavy drinking of alcohol and denies fall or injury. The patient also denies drug use. Some of the history and physical exam is limited due to the state of intoxication. all parts of the body were evaluated and there is no evidence of acute trauma. The plan is to observe patient in the ED until clinical sobriety is reached and reassess history and physical examination. pt monitored closely in the ED, pt seen and reassessed periodically. remained comfortable, no acute events, VS remain stable. s/o pending sobriety, reeval and ultimate dispo. Discharge - Discharge Information Problems reviewed: Yes Clinical Impression/Diagnosis: Alcohol intoxication Condition: Stable - Follow up/Referral - Patient Discharge Instructions - Post Discharge Activity
[2020-03-31 06:55] VITALS: BP 160/89; PULSE 104
== END 2020-03-31 07:52 | disposition home or self-care (01) ==
LOC: JER 18:59
DX: F10.129 Alcohol abuse with intoxication, unspecified (principal)
CPT/HCPCS: 99281-25

== ENCOUNTER 2020-04-01 20:06 | Emergency (ER) | payer OTHER ==
[2020-04-01 20:17] VITALS: TEMP 97.6; BMI 39.4
--- OUTSIDE RECORDS SUMMARY | 2020-04-01 20:42 | XMS ---
:1955 Author Organization [facility] Care Team Providers Name Role Phone ZACK KRAUS Unavailable Unavailable [facility], [id number] Unavailable Unavailable ED STAFF PHYSICIAN, JOSE Unavailable Unavailable ED STAFF PHYSICIAN Unavailable Unavailable LANOIX, YAN Unavailable Unavailable [place] SCHNEIDER Unavailable Unavailable ED STAFF PHYSICIAN, LEONEL Unavailable Unavailable ED STAFF PHYSICIAN, AGUILAR Unavailable Unavailable ELIANA STAHL Unavailable Unavailable ED STAFF PHYSICIAN Unavailable Unavailable ED STAFF PHYSICIAN Unavailable Unavailable PAULINO Ellis Unavailable Unavailable ED STAFF PHYSICIAN, FRANCISCA Unavailable Unavailable KELLI TUYET TUYET Unavailable Unavailable PALLI VINO K Unavailable Unavailable [facility], [id number] Unavailable Unavailable ED STAFF PHYSICIAN, STAFF Unavailable Unavailable RACHEL WOODS Unavailable Unavailable ED STAFF PHYSICIAN, LITZY Unavailable Unavailable ADELA Ruiz Unavailable Unavailable AYANA RESENDEZ MD Unavailable Unavailable [...] is protected by Article 27-F of the [facility] Public Health law. If you continue you may haveaccess to information: Regarding HIV / AIDS; Provided by facilities licensed or operated by the [facility] Office of Mental Health; or Provided by the [facility] Office for People With Developmental Disabilities. If such information is present, then the following [facility] mandated warning applies: This information has [...] law may result in a fine or [place] sentence or both. A general authorization for the release of medical or other information is NOT sufficient authorization for further disclosure. Encounters Encounter Providers Location Date Indications Data Source(s ) Emergency Attender: ED STAFF H 04/01/2020 [facility] PHYSICIANAttender: 03:08:00 PM [facility] STAFF ED STAFF EDT - PHYSICIANAdmitter: ED 04/01/2020 STAFF 06:10:00 PM PHYSICIANReferrer: EDT ZUNASSIGNED Patient discharged. Emergency Attender: ED STAFF H 03/31/2020 06:51:00 PM [facility] PHYSICIANAttender: STAFF ED EDT - [facility] STAFF PHYSICIANAdmitter: ED 10:14:00 PM EDT STAFF PHYSICIANReferrer: ZUNASSIGNED Patient discharged. Emergency Attender: JOSE ED STAFF H 03/29/2020 05:00:00 PM [facility] PHYSICIANAttender: STAFF ED EDT - 03/30/2020 [facility] STAFF PHYSICIANAdmitter: 11:11:00 AM EDT DE KALB ED STAFF PHYSICIANReferrer: ZUNASSIGNED Patient discharged. Emergency Attender: ED STAFF H 03/26/2020 07:51:00 PM [facility] PHYSICIANAttender: STAFF ED EDT - 03/26/2020 [facility] STAFF PHYSICIANAdmitter: ED 11:23:00 PM EDT STAFF PHYSICIANReferrer: ZUNASSIGNED Patient discharged. Emergency Attender: ED STAFF H 03/24/2020 05:26:00 PM [facility] PHYSICIANAttender: STAFF ED EDT - 03/24/2020 [facility] STAFF PHYSICIANAdmitter: ED 09:14:00 PM EDT STAFF PHYSICIANReferrer: STAFF ED STAFF PHYSICIAN Patient discharged. Emergency Attender: ED STAFF H 03/23/2020 09:54:00 PM [facility] PHYSICIANAttender: STAFF ED EDT - 03/24/2020 [facility] STAFF PHYSICIANAdmitter: ED 05:54:00 AM EDT STAFF PHYSICIANReferrer: ZUNASSIGNED Patient discharged. Emergency Attender: JOSE ED STAFF H 03/23/2020 05:47:00 PM [facility] PHYSICIANAttender: STAFF ED EDT - 03/23/2020 [facility] STAFF PHYSICIANAdmitter: 09:35:00 PM EDT DE KALB ED STAFF PHYSICIANReferrer: ZUNASSIGNED Patient discharged. Emergency Attender: ED STAFF H 03/22/2020 06:46:00 PM [facility] PHYSICIANAttender: STAFF ED EDT - 03/23/2020 [facility] STAFF PHYSICIANAdmitter: ED 06:04:00 AM EDT STAFF PHYSICIANReferrer: ZUNASSIGNED Patient discharged. Outpatient Attender: [id number] [facility] 03/19/2020 06:09:28 PM I ([facility] EDT Collaborative) Patient admitted. Inpatient Attender: ZACK DIXON [id number] 03/16/2020 05:57:0 0 [place] HAttender: STAFF ED STAFF PM EDT - 03/20/2020 [facility] PHYSICIANAdmitter: ZACK 01:00:00 PM EDT VIANCA DIXON HReferrer: ZACK DIXON H Patient discharged. Emergency Attender: ED STAFF H 03/13/2020 10:53:00 PM [facility] PHYSICIANAttender: STAFF ED EDT - 03/14/2020 [facility] STAFF PHYSICIANAdmitter: ED 09:59:00 AM EDT STAFF PHYSICIANReferrer: ZUNASSIGNED Patient discharged. Emergency Attender: ED STAFF H 03/12/2020 11:27:00 PM [facility] PHYSICIANAttender: STAFF ED EDT - 03/13/2020 [facility] STAFF PHYSICIANAdmitter: ED 09:26:00 AM EDT STAFF PHYSICIANReferrer: ZUNASSIGNED Patient discharged. Emergency Attender: ED STAFF H 03/11/2020 07:35:00 PM [facility] PHYSICIANAttender: STAFF ED EDT - 03/12/2020 [facility] STAFF PHYSICIANAdmitter: ED 06:22:00 AM EDT STAFF PHYSICIANReferrer: STAFF ED STAFF PHYSICIAN Patient discharged. Emergency Attender: ED STAFF 03/07/2020 12:09:00 AM [facility] PHYSICIANAttender: STAFF ED EDT - 03/07/2020 [facility] STAFF PHYSICIANAdmitter: ED 05:31:00 AM EDT STAFF PHYSICIANReferrer: ZUNASSIGNED Patient discharged. Emergency Attender: LITZY ED STAFF H-ER 03/05/2020 07:16:00 [facility] PHYSICIANAttender: STAFF ED PM EDT - 03/05/2020 [facility] STAFF PHYSICIANAdmitter: 08:52:00 PM EDT [facility] ED STAFF PHYSICIANReferrer: ZUNASSIGNED Patient discharged. Emergency Attender: ADELA TEJADA 03/03/2020 07:52:00 PM [facility] LAttender: STAFF ED STAFF EDT - 03/04/2020 [facility] PHYSICIANAdmitter: ADELA 06:50:00 AM EDT MALLORY LReferrer: STAFF ED STAFF PHYSICIAN Patient discharged. Emergency Attender: JOSE ED STAFF 03/01/2020 12:31:00 PM [facility] PHYSICIANAttender: STAFF ED EDT - 03/01/2020 [facility] STAFF PHYSICIANAdmitter: 11:42:00 PM EDT DE KALB ED STAFF PHYSICIANReferrer: ZUNASSIGNED Patient discharged. Emergency Attender: ED STAFF H 02/29/2020 12:29:00 PM [facility] PHYSICIANAttender: STAFF ED EDT - 02/29/2020 [facility] STAFF PHYSICIANAdmitter: ED 06:19:00 PM EDT STAFF PHYSICIANReferrer: ZUNASSIGNED Patient discharged. Emergency Attender: LITZY ED STAFF 02/28/2020 08:42:00 PM [facility] PHYSICIANAttender: STAFF ED EDT - 02/29/2020 [facility] STAFF PHYSICIANAdmitter: LITZY 05:27:00 AM EDT ED STAFF PHYSICIANReferrer: ZUNASSIGNED Patient discharged. Emergency Attender: JOSE ED STAFF 02/28/2020 11:14:00 AM [facility] PHYSICIANAttender: STAFF ED EDT - 02/28/2020 [facility] STAFF PHYSICIANAdmitter: 07:32:00 PM EDT DE KALB ED STAFF PHYSICIANReferrer: ZUNASSIGNED Patient discharged. Emergency Attender: ADELA TEJADA 02/27/2020 08:25:00 PM [facility] ED STAFF EDT - 02/28/2020 [facility] PHYSICIANAdmitter: ADELA 07:04:00 AM EDT OMIEL LReferrer: ZUNASSIGNED Patient discharged. Inpatient Attender: LEWIS GARCIA 02/16/2020 01:37:00 [facility] AYANA RESENDEZ EDT - [address] [place] [address] 10:27:00 PM EDT Patient discharged. Outpatient [facility] 02/16/2020 10:53:00 AM EDT - [address] [place] [address] 01:59:00 PM EDT Patient discharged. Emergency Attender: ADELA TEJADA 02/09/2020 09:43:00 PM [facility]: STAFF ED STAFF EDT - 02/10/2020 [facility] PHYSICIANAdmitter: ADELA 06:48:00 AM EDT OMIEL LReferrer: ZUNASSIGNED Patient discharged. Emergency Attender: STAFF ED STAFF 02/09/2020 02:45:00 AM [facility] Medical PHYSICIAN EDT - 02/09/2020 06:55:00 Center AM EDT Patient discharged. Emergency Attender: LITZY ED STAFF 02/04/2020 11:24:00 AM [facility] PHYSICIANAttender: STAFF ED EDT - 02/04/2020 [facility] STAFF PHYSICIANAdmitter: LITZY 03:35:00 PM EDT ED STAFF PHYSICIAN Patient discharged. Emergency Attender: MARCIAL SMITH 01/25/2020 06:06:00 PM [facility] Ghulamder: STAFF ED STAFF EDT - 01/26/2020 [facility] PHYSICIANAdmitter: PALLI VINO 06:12:00 AM EDT K Patient discharged. Emergency Attender: ED STAFF H 01/24/2020 08:18:00 PM [facility] PHYSICIANAttender: STAFF ED EDT - 01/25/2020 [facility] STAFF PHYSICIANAdmitter: ED 06:04:00 AM EDT STAFF PHYSICIAN Patient discharged. Emergency Attender: JOSE ED STAFF H 01/24/2020 01:40:00 PM [facility] PHYSICIANAttender: STAFF ED EDT - 01/24/2020 [facility] STAFF PHYSICIANAdmitter: 05:56:00 PM EDT DE KALB ED STAFF PHYSICIAN Patient discharged. Emergency Attender: STAFF ED STAFF H 01/20/2020 03:33:00 PM [facility] PHYSICIAN EDT - 01/20/2020 06:41:00 Center PM EDT Patient discharged. Emergency Attender: JOSE ED STAFF H 01/19/2020 11:13:00 AM [facility] PHYSICIANAttender: STAFF ED EDT - 01/19/2020 [facility] STAFF PHYSICIANAdmitter: 03:48:00 PM EDT DE KALB ED STAFF PHYSICIAN Patient discharged. Emergency Attender: ED STAFF H 01/18/2020 09:44:00 PM [facility] PHYSICIANAttender: STAFF ED EDT - 01/19/2020 [facility] STAFF PHYSICIANAdmitter: ED 06:28:00 AM EDT STAFF PHYSICIAN Patient discharged. Outpatient Attender: [id number] [facility] 01/14/2020 01:13:05 PM [facility] ([facility] EDT Collaborative) Patient admitted. Emergency Attender: JOSE ED STAFF H 01/06/2020 01:03:00 PM [facility] PHYSICIANAttender: STAFF ED EDT - 01/06/2020 [facility] STAFF PHYSICIANAdmitter: 09:00:00 PM EDT DE KALB ED STAFF PHYSICIAN Patient discharged. Emergency Attender: STAFF ED STAFF H 01/05/2020 08:46:00 PM [facility] Medical PHYSICIAN EDT - 01/06/2020 09:01:00 Center AM EDT Patient discharged. Emergency Attender: JOSE ED STAFF H 01/05/2020 02:24:00 PM [facility] PHYSICIANAttender: STAFF ED EDT - 01/05/2020 [facility] STAFF PHYSICIANAdmitter: 05:02:00 PM EDT DE KALB ED STAFF PHYSICIAN Patient discharged. Emergency Attender: STAFF ED STAFF H 01/03/2020 08:50:00 PM [facility] PHYSICIAN EDT - 01/04/2020 06:32:00 Center AM EDT Patient discharged. Emergency Attender: ED STAFF H 12/30/2019 08:35:00 PM [facility] PHYSICIANAttender: STAFF ED EDT - 12/31/2019 [facility] STAFF PHYSICIANAdmitter: ED 06:54:00 AM EDT STAFF PHYSICIAN Patient discharged. Emergency Attender: ED STAFF H 12/30/2019 04:36:00 PM [facility] PHYSICIANAttender: STAFF ED EDT - 12/31/2019 [facility] STAFF PHYSICIANAdmitter: ED 06:55:00 AM EDT STAFF PHYSICIAN Patient discharged. Emergency Attender: LITZY ED STAFF 12/29/2019 03:42:00 PM [facility] PHYSICIANAttender: STAFF ED EDT - 12/29/2019 [facility] STAFF PHYSICIANAdmitter: LITZY 08:14:00 PM EDT ED STAFF PHYSICIAN Patient discharged. Emergency Attender: STAFF ED STAFF 12/28/2019 10:09:00 PM [facility] PHYSICIAN EDT - 12/29/2019 06:04:00 Center AM EDT Patient discharged. Emergency Attender: ED STAFF 12/28/2019 01:13:00 AM [facility] PHYSICIANAttender: STAFF ED EDT - 12/28/2019 [facility] STAFF PHYSICIANAdmitter: ED 09:44:00 AM EDT STAFF PHYSICIAN Patient discharged. Emergency Attender: LITZY ED STAFF 12/27/2019 06:29:00 PM [facility] PHYSICIANAttender: ED STAFF EDT - 12/27/2019 [facility] PHYSICIANAttender: STAFF ED 10:06:00 PM EDT STAFF PHYSICIANAdmitter: [facility] ED STAFF PHYSICIAN Patient discharged. Emergency Attender: JOSE ED STAFF H 12/27/2019 12:06:00 PM [facility] PHYSICIANAttender: LITZY ED EDT - 12/27/2019 [facility] STAFF PHYSICIANAttender: STAFF 10:05:00 PM EDT ED STAFF PHYSICIANAdmitter: DE KALB ED STAFF PHYSICIAN Patient discharged. Emergency Attender: ED STAFF H-ER 12/24/2019 11:12:00 [facility] PHYSICIANAttender: STAFF ED PM EDT - 12/25/2019 [facility] STAFF PHYSICIANAdmitter: ED 05:53:00 AM EDT STAFF PHYSICIAN Patient discharged. Emergency Attender: LITZY ED STAFF H 12/22/2019 04:41:00 PM [facility] PHYSICIANAttender: STAFF ED EDT - 12/23/2019 [facility] STAFF PHYSICIANAdmitter: LITZY 06:19:00 AM EDT ED STAFF PHYSICIAN Patient discharged. Emergency Attender: LITZY ED STAFF H 12/20/2019 08:52:00 PM [facility] PHYSICIANAttender: STAFF ED EDT - 12/20/2019 [facility] STAFF PHYSICIANAdmitter: LITZY 11:29:00 PM EDT ED STAFF PHYSICIAN Patient discharged. Emergency Attender: ED STAFF H 12/18/2019 05:15:00 AM [facility] PHYSICIANAttender: STAFF ED EDT - 12/18/2019 [facility] STAFF PHYSICIANAdmitter: ED 06:04:00 AM EDT STAFF PHYSICIAN Patient discharged. Emergency Attender: LITZY ED STAFF H 12/17/2019 04:35:00 PM [facility] PHYSICIANAttender: STAFF ED EDT - 12/18/2019 [facility] STAFF PHYSICIANAdmitter: LITZY 03:16:00 AM EDT ED STAFF PHYSICIANReferrer: STAFF ED STAFF PHYSICIAN Patient discharged. Emergency Attender: ED STAFF H 12/16/2019 07:15:00 PM [facility] PHYSICIANAttender: STAFF ED EDT - 12/17/2019 [facility] STAFF PHYSICIANAdmitter: ED 06:39:00 AM EDT STAFF PHYSICIANReferrer: STAFF ED STAFF PHYSICIAN Patient discharged. Emergency Attender: MARCIAL Sage 12/16/2019 02:10:00 PM [facility] KAttender: STAFF ED STAFF EDT - 12/16/2019 [facility] PHYSICIANAdmitter: MARCIAL SMITH 05:38:00 PM EDT K Patient discharged. Emergency Attender: JOSE ED STAFF 12/14/2019 02:52:00 PM [facility] PHYSICIANAttender: ED STAFF EDT - 12/14/2019 [facility] PHYSICIANAttender: STAFF ED 09:24:00 PM EDT STAFF PHYSICIANAdmitter: JOSE ED STAFF PHYSICIAN Patient discharged. Emergency Attender: FRANCISCA ED STAFF H 12/10/2019 06:39:00 PM [facility] PHYSICIANAttender: ED STAFF EDT - 12/10/2019 [facility] PHYSICIANAttender: STAFF ED 09:42:00 PM EDT STAFF PHYSICIANAdmitter: FRANCISCA ED STAFF PHYSICIAN Patient discharged. Emergency Attender: ED STAFF H 12/09/2019 02:37:00 PM [facility] PHYSICIANAttender: STAFF ED EDT - 12/09/2019 [facility] STAFF PHYSICIANAdmitter: ED 04:39:00 PM EDT STAFF PHYSICIAN Patient discharged. Emergency Attender: ED STAFF H 12/08/2019 10:33:00 PM [facility] PHYSICIANAttender: STAFF ED EDT - 12/09/2019 [facility] STAFF PHYSICIANAdmitter: ED 06:03:00 AM EDT STAFF PHYSICIAN Patient discharged. Emergency Attender: LITZY ED STAFF 12/08/2019 01:04:00 PM [facility] PHYSICIANAttender: STAFF ED EDT - 12/08/2019 [facility] STAFF PHYSICIANAdmitter: LITZY 04:42:00 PM EDT ED STAFF PHYSICIAN Patient discharged. Emergency Attender: STAFF ED STAFF 12/08/2019 01:26:00 AM [facility] Medical PHYSICIAN EDT - 12/08/2019 03:22:00 Center AM EDT Patient discharged. Emergency Attender: MARCIAL SMITH 12/07/2019 02:19:00 PM [facility] KAttender: STAFF ED STAFF EDT - 12/07/2019 [facility] PHYSICIANAdmitter: MARCIAL SMITH 06:57:00 PM EDT K Patient discharged. Emergency Attender: LITZY ED STAFF 12/06/2019 06:10:00 PM [facility] PHYSICIANAttender: STAFF ED EDT - 12/07/2019 [facility] STAFF PHYSICIANAdmitter: LITZY 12:43:00 AM EDT ED STAFF PHYSICIAN Patient discharged. Emergency Attender: ED STAFF 12/04/2019 08:59:00 PM [facility] PHYSICIANAttender: STAFF ED EDT - 12/05/2019 [facility] STAFF PHYSICIANAdmitter: ED 05:48:00 AM EDT STAFF PHYSICIANReferrer: STAFF ED STAFF PHYSICIAN Patient discharged. Emergency Attender: ED STAFF 12/03/2019 08:01:00 PM [facility] PHYSICIANAttender: STAFF ED EDT - 12/03/2019 [facility] STAFF PHYSICIANAdmitter: ED 10:34:00 PM EDT STAFF PHYSICIAN Patient discharged. Emergency Attender: ED STAFF H 12/03/2019 01:49:00 PM [facility] PHYSICIANAttender: STAFF ED EDT - 12/03/2019 [facility] STAFF PHYSICIANAdmitter: ED 05:15:00 PM EDT STAFF PHYSICIANReferrer: STAFF ED STAFF PHYSICIAN Patient discharged. Emergency Attender: STAFF ED STAFF H 12/02/2019 08:09:00 PM [facility] PHYSICIAN EDT - 12/03/2019 07:06:00 Center AM EDT Patient discharged. Emergency Attender: MARCIAL Sage 11/30/2019 04:27:00 PM [facility] KAtthierno: STAFF ED STAFF EDT - 11/30/2019 [facility] PHYSICIANAdmitter: MARCIAL SMITH 11:51:00 PM EDT K Patient discharged. Emergency Attender: STAFF ED STAFF H 11/30/2019 03:04:00 AM [facility] PHYSICIAN EDT - 11/30/2019 07:04:00 Center AM EDT Patient discharged. Emergency Attender: LITZY ED STAFF 11/29/2019 04:39:00 PM [facility] PHYSICIANAttender: STAFF ED EDT - 11/29/2019 [facility] STAFF PHYSICIANAdmitter: LITZY 10:06:00 PM EDT ED STAFF PHYSICIAN Patient discharged. Emergency Attender: ED STAFF 11/25/2019 09:53:00 PM [facility] PHYSICIANAttender: STAFF ED EDT - 11/26/2019 [facility] STAFF PHYSICIANAdmitter: ED 06:08:00 AM EDT STAFF PHYSICIAN Patient discharged. Emergency Attender: MARCIAL Sage 11/25/2019 12:05:00 PM [facility] Deborah: Josue Mendez EDT - 11/25/2019 [facility] MDAttender: STAFF ED STAFF 03:49:00 PM EDT PHYSICIANAdmitter: MARCIAL Ellis Patient discharged. Emergency Attender: STAFF ED STAFF 11/24/2019 10:37:00 PM [facility] PHYSICIAN EDT - 11/25/2019 01:28:00 Center AM EDT Patient discharged. Emergency Attender: JOSE ED STAFF 11/24/2019 02:04:00 PM [facility] PHYSICIANAttender: LITZY ED EDT - 11/24/2019 [facility] STAFF PHYSICIANAttender: STAFF 05:13:00 PM EDT ED STAFF PHYSICIANAdmitter: JOSE ED STAFF PHYSICIAN Patient discharged. Emergency Attender: MARCIAL Sage 11/23/2019 05:20:00 PM [facility] KAttender: STAFF ED STAFF EDT - 11/24/2019 [facility] PHYSICIANAdmitter: MARCIAL SMITH 05:19:00 AM EDT K Patient discharged. Emergency Attender: LITZY ED STAFF H 11/22/2019 08:30:00 PM [facility] PHYSICIANAttender: STAFF ED EDT - 11/23/2019 [facility] STAFF PHYSICIANAdmitter: LITZY 06:02:00 AM EDT ED STAFF PHYSICIAN Patient discharged. Emergency Attender: LITZY ED STAFF H 11/22/2019 01:37:00 PM [facility] PHYSICIANAttender: STAFF ED EDT - 11/22/2019 [facility] STAFF PHYSICIANAdmitter: LITZY 05:57:00 PM EDT ED STAFF PHYSICIAN Patient discharged. Emergency Attender: LITZY ED STAFF H 11/20/2019 03:54:00 PM [facility] PHYSICIANAttender: STAFF ED EDT - 11/20/2019 [facility] STAFF PHYSICIANAdmitter: LITZY 07:33:00 PM EDT ED STAFF PHYSICIAN Patient discharged. Emergency Attender: ED STAFF 11/18/2019 01:25:00 PM [facility] PHYSICIANAttender: STAFF ED EDT - 11/19/2019 [facility] STAFF PHYSICIANAdmitter: ED 01:40:00 AM EDT STAFF PHYSICIAN Patient discharged. Emergency Attender: STAFF ED STAFF 11/16/2019 08:42:00 PM [facility] PHYSICIAN EDT - 11/17/2019 05:38:00 Center AM EDT Patient discharged. Emergency Attender: ED STAFF 11/16/2019 01:46:00 PM [facility] PHYSICIANAttender: MARCIAL SMITH EDT - 11/16/2019 [facility] KAttender: STAFF ED STAFF 05:41:00 PM EDT PHYSICIANAdmitter: ED STAFF PHYSICIAN Patient discharged. Emergency Attender: JOSE ED STAFF 11/10/2019 04:25:00 PM [facility] PHYSICIANAttender: STAFF ED EDT - 11/10/2019 [facility] STAFF PHYSICIANAdmitter: 08:35:00 PM EDT DE KALB ED STAFF PHYSICIAN Patient discharged. Emergency Attender: JOSE ED STAFF 11/08/2019 02:38:00 PM [facility] PHYSICIANAttender: STAFF ED EDT - 11/08/2019 [facility] STAFF PHYSICIANAdmitter: 10:15:00 PM EDT DE KALB ED STAFF PHYSICIAN Patient discharged. Emergency Attender: ED STAFF 11/07/2019 10:18:00 PM [facility] PHYSICIANAttender: STAFF ED EDT - 11/14/2019 [facility] STAFF PHYSICIANAdmitter: ED 12:48:00 AM EDT STAFF PHYSICIANReferrer: STAFF ED STAFF PHYSICIAN Patient discharged. Emergency Attender: ED STAFF H 11/05/2019 01:32:00 PM [facility] PHYSICIANAttender: STAFF ED EDT - 11/05/2019 [facility] STAFF PHYSICIANAdmitter: ED 07:57:00 PM EDT STAFF PHYSICIAN Patient discharged. Emergency Attender: STAFF ED STAFF H 11/03/2019 09:29:00 PM [facility] PHYSICIAN EDT - 11/03/2019 11:21:00 Center PM EDT Patient discharged. Emergency Attender: MARCIAL Sage 11/02/2019 07:07:00 PM [facility] KAttender: STAFF ED STAFF EDT - 11/03/2019 [facility] PHYSICIANAdmitter: MARCIAL SMITH 12:39:00 AM EDT K Patient discharged. Emergency Attender: JOSE ED STAFF 11/01/2019 02:09:00 PM [facility] PHYSICIANAttender: STAFF ED EDT - 11/01/2019 [facility] STAFF PHYSICIANAdmitter: 09:18:00 PM EDT DE KALB ED STAFF PHYSICIAN Patient discharged. Emergency Attender: MARCIAL Sage 10/31/2019 06:02:00 PM [facility] KAttender: ED STAFF EDT - 10/31/2019 [facility] PHYSICIANAttender: STAFF ED 10:38:00 PM EDT STAFF PHYSICIANAdmitter: MARCIAL Ellis Patient discharged. Emergency Attender: ED STAFF H 10/30/2019 02:58:00 PM [facility] PHYSICIANAttender: STAFF ED EDT - 10/31/2019 [facility] STAFF PHYSICIANAdmitter: ED 02:24:00 AM EDT STAFF PHYSICIAN Patient discharged. Emergency Attender: LITZY ED STAFF H 10/28/2019 08:51:00 PM [facility] PHYSICIANAttender: STAFF ED EDT - 10/29/2019 [facility] STAFF PHYSICIANAdmitter: LITZY 03:06:00 AM EDT ED STAFF PHYSICIAN Patient discharged. Emergency Attender: LITZY ED STAFF H 10/27/2019 06:36:00 PM [facility] PHYSICIANAttender: STAFF ED EDT - 10/27/2019 [facility] STAFF PHYSICIANAdmitter: LITZY 10:23:00 PM EDT ED STAFF PHYSICIAN Patient discharged. Emergency Attender: ED STAFF H 10/22/2019 06:02:00 PM [facility] PHYSICIANAttender: PAULINO EDT - 10/22/2019 [facility] PENELOPE Parmarthaddeus: STAFF ED 10:48:00 PM EDT STAFF PHYSICIANAdmitter: ED STAFF PHYSICIANReferrer: STAFF ED STAFF PHYSICIAN Patient discharged. Emergency Attender: ED STAFF H 10/22/2019 01:07:00 AM [facility] PHYSICIANAttender: STAFF ED EDT - 10/22/2019 [facility] STAFF PHYSICIANAdmitter: ED 06:20:00 AM EDT STAFF PHYSICIAN Patient discharged. Emergency Attender: JOSE ED STAFF H 10/21/2019 03:39:00 PM [facility] PHYSICIANAttender: STAFF ED EDT - 10/22/2019 [facility] STAFF PHYSICIANAdmitter: 12:14:00 AM EDT DE KALB ED STAFF PHYSICIAN Patient discharged. Emergency Attender: STAFF ED STAFF H 10/21/2019 12:18:00 AM [facility] PHYSICIAN EDT - 10/21/2019 07:03:00 [facility] AM EDT Patient discharged. Emergency Attender: MARCIAL Sage 10/19/2019 08:03:00 PM [facility] Deborah: STAFF ED STAFF EDT - 10/20/2019 [facility] PHYSICIANAdmitter: MARCIAL SMITH 06:09:00 AM EDT K Patient discharged. Emergency Attender: ED STAFF H 10/18/2019 06:11:00 AM [facility] PHYSICIANAttender: STAFF ED EDT - 10/18/2019 [facility] STAFF PHYSICIANAdmitter: ED 09:49:00 PM EDT STAFF PHYSICIAN Patient discharged. Emergency Attender: MARCIAL Sage 10/17/2019 08:24:00 PM [facility] KAtthierno: ED STAFF EDT - 10/17/2019 [facility] PHYSICIANAttender: STAFF ED 11:42:00 PM EDT STAFF PHYSICIANAdmitter: MARCIAL Ellis Patient discharged. Emergency Attender: JOSE ED STAFF H 10/15/2019 01:27:00 PM [facility] PHYSICIANAttender: STAFF ED EDT - 10/15/2019 [facility] STAFF PHYSICIANAdmitter: 03:49:00 PM EDT JOSE ED STAFF PHYSICIAN Patient discharged. Emergency Attender: LITZY ED STAFF H 10/13/2019 07:22:00 PM [facility] PHYSICIANAttender: STAFF ED EDT - 10/13/2019 [facility] STAFF PHYSICIANAdmitter: LITZY 10:35:00 PM EDT ED STAFF PHYSICIAN Patient discharged. Emergency Attender: JOSE ED STAFF H 10/13/2019 07:53:00 AM [facility] PHYSICIANAttender: STAFF ED EDT - 10/13/2019 [facility] STAFF PHYSICIANAdmitter: 06:44:00 PM EDT JOSE ED STAFF PHYSICIAN Patient discharged. Emergency Attender: STAFF ED STAFF H 10/12/2019 12:49:00 AM [facility] PHYSICIAN EDT - 10/12/2019 02:10:00 [facility] AM EDT Patient discharged. Emergency Attender: LITZY ED STAFF 10/11/2019 02:37:00 PM [facility] PHYSICIANAttender: STAFF ED EDT - 10/11/2019 [facility] STAFF PHYSICIANAdmitter: LITZY 08:39:00 PM EDT ED STAFF PHYSICIAN Patient discharged. Outpatient Attender: [id number] [facility] 10/10/2019 07:26:38 AM [facility] ([facility] EDT Collaborative) Patient admitted. Outpatient Attender: [email or web address] [facility] 10/10/2019 07:26:35 AM [facility] ([facility] EDT Collaborative) Patient admitted. Emergency Attender: JOSE ED STAFF 10/06/2019 09:24:00 AM [facility] PHYSICIANAttender: STAFF ED EDT - 10/06/2019 [facility] STAFF PHYSICIANAdmitter: 11:20:00 AM EDT JOSE ED STAFF PHYSICIAN Patient discharged. Emergency Attender: STAFF ED STAFF 10/05/2019 08:44:00 PM [facility] PHYSICIAN EDT - 10/06/2019 12:39:00 Center AM EDT Patient discharged. Inpatient Attender: TUYET PEREIRA H-EDIP 09/17/2019 11:20:00 [facility] TRISTANAttender: STAFF ED PM EDT - 09/19/2019 [facility] STAFF PHYSICIANAdmitter: 07:49:00 AM EDT TUYET LUTZTANReferrer: TUYET BENZ Patient discharged. Emergency Attender: Josue Sage 09/17/2019 05:08: 00 PM [facility] MDAttender: STAFF ED STAFF EDT - 09/18/2019 [facility] PHYSICIANAdmitter: Josue 04:33:00 AM EDT [facility] MDReferrer: STAFF ED STAFF PHYSICIAN Patient discharged. Emergency Attender: STAFF ED STAFF H 09/14/2019 08:44:00 PM [facility] PHYSICIAN EDT - 09/15/2019 09:09:00 Center AM EDT Patient discharged. Emergency Attender: LITZY ED STAFF H 09/13/2019 07:30:00 PM [facility] PHYSICIANAttender: STAFF ED EDT - 09/14/2019 [facility] STAFF PHYSICIANAdmitter: LITZY 08:43:00 AM EDT ED STAFF PHYSICIAN Patient discharged. Emergency Attender: JOSE ED STAFF 09/13/2019 08:56:00 AM [facility] PHYSICIANAttender: STAFF ED EDT - 09/13/2019 [facility] STAFF PHYSICIANAdmitter: 01:13:00 PM EDT DE KALB ED STAFF PHYSICIAN Patient discharged. Emergency Attender: STAFF ED STAFF 09/12/2019 08:31:00 PM [facility] PHYSICIAN EDT - 09/13/2019 07:32:00 [facility] AM EDT Patient discharged. Emergency Attender: ED STAFF 09/11/2019 08:42:00 PM [facility] PHYSICIANAttender: STAFF ED EDT - 09/12/2019 [facility] STAFF PHYSICIANAdmitter: ED 06:36:00 PM EDT STAFF PHYSICIANReferrer: STAFF ED STAFF PHYSICIAN Patient discharged. Emergency Attender: LITZY ED STAFF 09/11/2019 04:08:00 PM [facility] PHYSICIANAttender: STAFF ED EDT - 09/11/2019 [facility] STAFF PHYSICIANAdmitter: LITZY 06:54:00 PM EDT ED STAFF PHYSICIAN Patient discharged. Emergency Attender: ED STAFF 09/10/2019 04:50:00 PM [facility] PHYSICIANAttender: STAFF ED EDT - 09/11/2019 [facility] STAFF PHYSICIANAdmitter: ED 08:33:00 PM EDT STAFF PHYSICIANReferrer: STAFF ED STAFF PHYSICIAN Patient discharged. Emergency Attender: ED STAFF H 09/08/2019 08:13:00 PM [facility] PHYSICIANAttender: STAFF ED EDT - 09/09/2019 [facility] STAFF PHYSICIANAdmitter: ED 08:40:00 AM EDT STAFF PHYSICIAN Patient discharged. Emergency Attender: STAFF ED STAFF H 09/07/2019 10:06:00 PM [facility] PHYSICIAN EDT - 09/08/2019 08:44:00 Center AM EDT Patient discharged. Emergency Attender: JOSE ED STAFF 09/05/2019 07:50:00 AM [facility] PHYSICIANAttender: ED STAFF EDT - 09/07/2019 [facility] PHYSICIANAttender: STAFF ED 06:44:00 AM EDT STAFF PHYSICIANAdmitter: JOSE ED STAFF PHYSICIAN Patient discharged. Emergency Attender: STAFF ED STAFF 09/04/2019 10:01:00 PM [facility] PHYSICIANReferrer: STAFF ED EDT - 09/05/2019 [facility] STAFF PHYSICIAN 08:15:00 AM EDT Patient discharged. Emergency Attender: LITZY ED STAFF 09/04/2019 02:54:00 PM [facility] PHYSICIANAttender: STAFF ED EDT - 09/04/2019 [facility] STAFF PHYSICIANAdmitter: LITZY 08:59:00 PM EDT ED STAFF PHYSICIANReferrer: STAFF ED STAFF PHYSICIAN Patient discharged. Emergency Attender: STAFF ED STAFF 09/03/2019 08:39:00 PM [facility] PHYSICIANReferrer: STAFF ED EDT - 09/04/2019 [facility] STAFF PHYSICIAN 06:55:00 AM EDT Patient discharged. Emergency Attender: LITZY ED STAFF 09/02/2019 04:49:00 PM [facility] PHYSICIANAttender: ED STAFF EDT - 09/03/2019 [facility] PHYSICIANAttender: STAFF ED 12:12:00 AM EDT STAFF PHYSICIANAdmitter: [facility] ED STAFF PHYSICIAN Patient discharged. Outpatient Attender: [id number] 09/02/2019 07:16:17 AM [facility] ([facility] EDT Collaborative) Patient admitted. Emergency Attender: ED STAFF 09/01/2019 10:38:00 PM [facility] PHYSICIANAttender: STAFF ED EDT - 09/01/2019 [facility] STAFF PHYSICIANAdmitter: ED 11:35:00 PM EDT STAFF PHYSICIAN Patient discharged. Emergency Attender: JOSE ED STAFF 09/01/2019 12:48:00 PM [facility] PHYSICIANAttender: LITZY ED EDT - 09/01/2019 [facility] STAFF PHYSICIANAttender: STAFF 09:37:00 PM EDT ED STAFF PHYSICIANAdmitter: JOSE ED STAFF PHYSICIAN Patient discharged. Emergency Attender: ED STAFF H 08/31/2019 07:31:00 PM [facility] PHYSICIANAttender: STAFF ED EDT - 09/01/2019 [facility] STAFF PHYSICIANAdmitter: ED 04:06:00 AM EDT STAFF PHYSICIAN Patient discharged. Emergency Attender: ED STAFF H 08/29/2019 08:10:00 PM [facility] PHYSICIANAttender: STAFF ED EDT - 08/30/2019 [facility] STAFF PHYSICIANAdmitter: ED 08:39:00 AM EDT STAFF PHYSICIAN Patient discharged. Emergency Attender: ED STAFF H 08/28/2019 08:21:00 PM [facility] PHYSICIANAttender: STAFF ED EDT - 08/29/2019 [facility] STAFF PHYSICIANAdmitter: ED 08:53:00 AM EDT STAFF PHYSICIANReferrer: STAFF ED STAFF PHYSICIAN Patient discharged. Emergency Attender: ED STAFF 08/27/2019 08:45:00 PM [facility] PHYSICIANAttender: STAFF ED EDT - 08/28/2019 [facility] STAFF PHYSICIANAdmitter: ED 01:42:00 AM EDT STAFF PHYSICIANReferrer: STAFF ED STAFF PHYSICIAN Patient discharged. Emergency Attender: MARCIAL Sage 08/27/2019 05:26:00 AM [facility] KAttender: ED STAFF EDT - 08/27/2019 [facility] PHYSICIANAttender: STAFF ED 04:41:00 PM EDT STAFF PHYSICIANAdmitter: MARCIAL Ellis Patient discharged. Emergency Attender: FRANCISCA ED STAFF 08/25/2019 04:54:00 PM [facility] PHYSICIANAttender: LITZY ED EDT - 08/25/2019 [facility] STAFF PHYSICIANAttender: STAFF 07:49:00 PM EDT ED STAFF PHYSICIANAdmitter: PSYCHIATRICJanelle ED STAFF PHYSICIAN Patient discharged. Emergency Attender: FRANCISCA ED STAFF 08/24/2019 06:38:00 PM [facility] PHYSICIANAttender: STAFF ED EDT - 08/25/2019 [facility] STAFF PHYSICIANAdmitter: 05:59:00 AM EDT [facility] ED STAFF PHYSICIAN Patient discharged. Emergency Attender: FRANCISCA ED STAFF 08/23/2019 06:12:00 PM [facility] PHYSICIANAttender: STAFF ED EDT - 08/24/2019 [facility] STAFF PHYSICIAN 04:50:00 AM EDT Patient discharged. Emergency Attender: STAFF ED STAFF H 08/22/2019 08:59:00 PM [facility] PHYSICIAN EDT - 08/23/2019 08:48:00 [facility] AM EDT Patient discharged. Emergency Attender: STAFF ED STAFF H 08/21/2019 09:12:00 PM [facility] PHYSICIANReferrer: STAFF ED EDT - 08/22/2019 [facility] STAFF PHYSICIAN 06:01:00 AM EDT Patient discharged. Emergency Attender: ED STAFF H 08/20/2019 03:19:00 PM [facility] PHYSICIANAttender: STAFF ED EST - 08/20/2019 [facility] STAFF PHYSICIANAdmitter: ED 11:42:00 PM EST STAFF PHYSICIAN Patient discharged. Emergency Attender: ED STAFF H 08/19/2019 07:15:00 PM [facility] PHYSICIANAttender: STAFF ED EST - 08/20/2019 [facility] STAFF PHYSICIANAdmitter: ED 03:04:00 AM EST STAFF PHYSICIAN Patient discharged. Emergency Attender: ED STAFF 08/19/2019 03:56:00 PM [facility] PHYSICIANAttender: STAFF ED EST - 08/19/2019 [facility] STAFF PHYSICIANAdmitter: ED 06:55:00 PM EST STAFF PHYSICIAN Patient discharged. Emergency Attender: LITZY ED STAFF 08/18/2019 03:54:00 PM [facility] PHYSICIANAttender: STAFF ED EST - 08/18/2019 [facility] STAFF PHYSICIANAdmitter: LITZY 10:23:00 PM EST ED STAFF PHYSICIAN Patient discharged. Emergency Attender: ED STAFF 08/17/2019 02:27:00 PM [facility] PHYSICIANAttender: STAFF ED EST - 08/18/2019 [facility] STAFF PHYSICIANAdmitter: ED 08:39:00 AM EST STAFF PHYSICIAN Patient discharged. Emergency Attender: STAFF ED STAFF 08/17/2019 02:43:00 AM [facility] Medical PHYSICIAN EST - 08/17/2019 09:44:00 Center AM EST Patient discharged. Emergency Attender: EVA 08/16/2019 03:33:00 [facility] RICHARDAttender: EMERGENCY PM EST Health Care SERVICE, XAdmitter: EVA [facility] Emergency Attender: LITZY ED STAFF H 08/12/2019 05:29:00 PM [facility] PHYSICIANAttender: FRANCISCA ED EST - 08/13/2019 [facility] STAFF PHYSICIANAttender: STAFF 05:43:00 AM EST ED STAFF PHYSICIANAdmitter: LITZY ED STAFF PHYSICIAN Patient discharged. Emergency Attender: LITZY ED STAFF 08/11/2019 05:01:00 PM [facility] PHYSICIANAttender: STAFF ED EST - 08/12/2019 [facility] STAFF PHYSICIANAdmitter: LITZY 12:41:00 AM EST ED STAFF PHYSICIAN Patient discharged. Emergency Attender: ED STAFF 08/10/2019 10:37:00 PM [facility] PHYSICIANAttender: STAFF ED EST - 08/11/2019 [facility] STAFF PHYSICIANAdmitter: ED 01:01:00 AM EST STAFF PHYSICIAN Patient discharged. Emergency Attender: AGUILAR ED STAFF 08/10/2019 04:09:00 PM [facility] PHYSICIANAttender: STAFF ED EST - 08/10/2019 [facility] STAFF PHYSICIANAdmitter: AGUILAR 11:02:00 PM EST ED STAFF PHYSICIAN Patient discharged. Emergency Attender: ED STAFF 08/09/2019 07:25:00 PM [facility] PHYSICIANAttender: STAFF ED EST - 08/10/2019 [facility] STAFF PHYSICIANAdmitter: ED 09:58:00 AM EST STAFF PHYSICIAN Patient discharged. Emergency Attender: LEONEL ED STAFF 08/08/2019 04:28:00 PM [facility] PHYSICIANAttender: STAFF ED EST - 08/09/2019 [facility] STAFF PHYSICIANAdmitter: LEONEL 10:32:00 AM EST ED STAFF PHYSICIAN Patient discharged. Emergency Attender: ED STAFF 08/06/2019 03:52:00 PM [facility] PHYSICIANAttender: ED STAFF RUST - 08/07/2019 [facility] PHYSICIANAttender: STAFF ED 12:38:00 AM EST STAFF PHYSICIANAdmitter: ED STAFF PHYSICIAN Patient discharged. Emergency Attender: LEONEL ED STAFF 08/01/2019 06:41:00 PM [facility] PHYSICIANAttender: STAFF ED EST - 08/02/2019 [facility] STAFF PHYSICIANAdmitter: LEONEL 08:35:00 AM EST ED STAFF PHYSICIAN Patient discharged. Emergency Attender: STAFF ED STAFF 07/31/2019 11:25:00 PM [facility] PHYSICIAN EST - 08/01/2019 08:56:00 [facility] AM EST Patient discharged. Emergency Attender: LITZY ED STAFF 07/31/2019 05:39:00 PM [facility] PHYSICIANAttender: STAFF ED EST - 07/31/2019 [facility] STAFF PHYSICIANAdmitter: LITZY 07:38:00 PM EST ED STAFF PHYSICIANReferrer: STAFF ED STAFF PHYSICIAN Patient discharged. Emergency Attender: STAFF ED STAFF 07/30/2019 07:01:00 PM [facility] PHYSICIANReferrer: STAFF ED EST - 07/31/2019 [facility] STAFF PHYSICIAN 04:29:00 PM EST Patient discharged. Emergency Attender: STAFF ED STAFF 07/29/2019 09:45:00 PM [facility] Medical PHYSICIAN EST - 07/30/2019 07:10:00 [facility] AM EST Patient discharged. Emergency Attender: LITZY ED STAFF 07/28/2019 02:39:00 PM [facility] PHYSICIANAttender: ED STAFF EST - 07/29/2019 [facility] PHYSICIANAttender: STAFF ED 01:25:00 AM EST STAFF PHYSICIANAdmitter: [facility] ED STAFF PHYSICIAN Patient discharged. Emergency Attender: JOSE ED STAFF 07/28/2019 03:16:00 AM [facility] PHYSICIANAttender: STAFF ED EST - 07/28/2019 [facility] STAFF PHYSICIANAdmitter: 10:10:00 AM EST DE KALB ED STAFF PHYSICIAN Patient discharged. Emergency Attender: ED STAFF 07/27/2019 03:24:00 PM [facility] PHYSICIANAttender: STAFF ED EST - 07/27/2019 [facility] STAFF PHYSICIANAdmitter: ED 10:57:00 PM EST STAFF PHYSICIAN Patient discharged. Emergency Attender: JOSE ED STAFF 07/26/2019 02:36:00 PM [facility] PHYSICIANAttender: STAFF ED EST - 07/26/2019 [facility] STAFF PHYSICIANAdmitter: 06:36:00 PM EST DE KALB ED STAFF PHYSICIAN Patient discharged. Emergency Attender: ED STAFF 07/22/2019 12:21:00 AM [facility] PHYSICIANAttender: STAFF ED EST - 07/22/2019 [facility] STAFF PHYSICIANAdmitter: ED 01:50:00 AM EST STAFF PHYSICIAN Patient discharged. Emergency Attender: FRANCISCA ED STAFF 07/17/2019 07:28:00 PM [facility] PHYSICIANAttender: STAFF ED EST - 07/17/2019 [facility] STAFF PHYSICIANAdmitter: 10:56:00 PM EST [facility] ED STAFF PHYSICIANReferrer: STAFF ED STAFF PHYSICIAN Patient discharged. Emergency Attender: FRANCISCA ED STAFF 07/16/2019 03:07:00 PM [facility] PHYSICIANAttender: STAFF ED EST - 07/17/2019 [facility] STAFF PHYSICIANAdmitter: 03:19:00 AM EST [facility] Patient discharged. Emergency Attender: ED STAFF H-ER 07/15/2019 01:02:00 [facility] PHYSICIANAttender: STAFF ED AM EST - 07/15/2019 [facility] STAFF PHYSICIANAdmitter: ED 03:10:00 AM EST STAFF PHYSICIAN Patient discharged. Emergency Attender: JOSE ED STAFF H 07/14/2019 07:29:00 AM [facility] PHYSICIANAttender: STAFF ED EST - 07/14/2019 [facility] STAFF PHYSICIANAdmitter: 12:19:00 PM EST DE KALB ED STAFF PHYSICIAN Patient discharged. Emergency Attender: ED STAFF H 07/13/2019 05:30:00 PM [facility] PHYSICIANAttender: STAFF ED RUST - 07/14/2019 [facility] STAFF PHYSICIANAdmitter: ED 05:30:00 AM EST STAFF PHYSICIAN Patient discharged. Emergency Attender: STAFF ED STAFF H 07/13/2019 03:03:00 AM [facility] PHYSICIAN RUST - 07/13/2019 10:05:00 [facility] AM EST Patient discharged. Emergency Attender: STAFF ED STAFF 07/12/2019 09:37:00 PM [facility] PHYSICIAN RUST - 07/13/2019 12:34:00 [facility] AM EST Patient discharged. Emergency Attender: JOSE ED STAFF 07/12/2019 01:34:00 PM [facility] PHYSICIANAttender: STAFF ED EST - 07/12/2019 [facility] STAFF PHYSICIANAdmitter: 11:37:00 PM EST DE KALB ED STAFF PHYSICIAN Patient discharged. Emergency Attender: STAFF ED STAFF 07/09/2019 10:13:00 PM [facility] PHYSICIANReferrer: STAFF ED EST - 07/09/2019 [facility] STAFF PHYSICIAN 11:20:00 PM EST Patient discharged. Emergency Attender: ED STAFF 07/09/2019 11:25:00 AM [facility] PHYSICIANAttender: STAFF ED EST - 07/09/2019 [facility] STAFF PHYSICIANAdmitter: ED 03:37:00 PM EST STAFF PHYSICIAN Patient discharged. Emergency Attender: STAFF ED STAFF 07/08/2019 08:14:00 PM [facility] PHYSICIAN EST - 07/09/2019 07:23:00 [facility] AM EST Patient discharged. Emergency Attender: LITZY ED STAFF H 07/07/2019 07:49:00 PM [facility] PHYSICIANAttender: STAFF ED EST - 07/07/2019 [facility] STAFF PHYSICIANAdmitter: LITZY 09:07:00 PM EST ED STAFF PHYSICIAN Patient discharged. Emergency Attender: JOSE ED STAFF 07/07/2019 12:23:00 PM [facility] PHYSICIANAttender: STAFF ED EST - 07/07/2019 [facility] STAFF PHYSICIANAdmitter: 04:56:00 PM EST JOSE ED STAFF PHYSICIAN Patient discharged. Emergency Attender: Josue Mendez 07/06/2019 06:30: 00 PM [facility] MDAttender: STAFF ED STAFF EST - 07/07/2019 [facility] PHYSICIANAdmitter: Josue 02:40:00 AM EST [facility] MD Patient discharged. Emergency Attender: STAFF ED STAFF 07/05/2019 10:18:00 PM [facility] PHYSICIAN EST - 07/06/2019 07:08:00 [facility] AM EST Patient discharged. Emergency Attender: ED STAFF 07/04/2019 05:56:00 PM [facility] PHYSICIANAttender: ED STAFF RUST - 07/05/2019 [facility] PHYSICIANAttender: STAFF ED 09:10:00 AM EST STAFF PHYSICIANAdmitter: ED STAFF PHYSICIANReferrer: STAFF ED STAFF PHYSICIAN Patient discharged. Emergency Attender: STAFF ED STAFF 07/03/2019 10:40:00 PM [facility] PHYSICIANReferrer: STAFF ED RUST - 07/04/2019 [facility] STAFF PHYSICIAN 06:45:00 AM EST Patient discharged. Emergency Attender: ED STAFF 07/02/2019 06:17:00 PM [facility] PHYSICIANAttender: STAFF ED EST - 07/02/2019 [facility] STAFF PHYSICIANAdmitter: ED 08:42:00 PM EST STAFF PHYSICIANReferrer: STAFF ED STAFF PHYSICIAN Patient discharged. Emergency Attender: ED STAFF 07/01/2019 11:08:00 PM [facility] PHYSICIANAttender: STAFF ED EST - 07/02/2019 [facility] STAFF PHYSICIANAdmitter: ED 04:14:00 AM EST STAFF PHYSICIAN Patient discharged. Emergency Attender: ED STAFF H 07/01/2019 07:08:00 PM [facility] PHYSICIANAttender: STAFF ED EST - 07/01/2019 [facility] STAFF PHYSICIANAdmitter: ED 09:50:00 PM EST STAFF PHYSICIAN Patient discharged. Emergency Attender: STAFF ED STAFF H 06/29/2019 09:17:00 PM [facility] PHYSICIAN EST - 06/30/2019 04:12:00 [facility] AM EST Patient discharged. Emergency Attender: STAFF ED STAFF 06/29/2019 03:02:00 AM [facility] PHYSICIAN EST - 06/29/2019 09:25:00 [facility] AM EST Patient discharged. Emergency Attender: STAFF ED STAFF 06/28/2019 09:08:00 PM [facility] PHYSICIAN EST - 06/28/2019 11:20:00 [facility] PM EST Patient discharged. Emergency Attender: LITZY ED STAFF 06/28/2019 12:59:00 PM [facility] PHYSICIANAttender: STAFF ED EST - 06/28/2019 [facility] STAFF PHYSICIANAdmitter: LITZY 06:29:00 PM EST ED STAFF PHYSICIAN Patient discharged. Emergency Attender: ED STAFF 06/27/2019 11:57:00 PM [facility] PHYSICIANAttender: STAFF ED RUST - 06/28/2019 [facility] STAFF PHYSICIANAdmitter: ED 02:12:00 AM EST STAFF PHYSICIAN Patient discharged. Emergency Attender: JOSE ED STAFF 06/27/2019 12:51:00 PM [facility] PHYSICIANAttender: STAFF ED RUST - 06/27/2019 [facility] STAFF PHYSICIANAdmitter: 09:36:00 PM EST DE KALB ED STAFF PHYSICIAN Patient discharged. Emergency Attender: ED STAFF 06/27/2019 03:59:00 AM [facility] PHYSICIANAttender: STAFF ED RUST - 06/27/2019 [facility] STAFF PHYSICIANAdmitter: ED 06:26:00 AM EST STAFF PHYSICIAN Patient discharged. Emergency Attender: STAFF ED STAFF 06/24/2019 10:59:00 PM [facility] PHYSICIAN EST - 06/25/2019 07:44:00 [facility] AM EST Patient discharged. Emergency Attender: PAULINO Sage 06/24/2019 01:51:00 PM [facility] Deborah: STAFF ED STAFF RUST - 06/24/2019 [facility] PHYSICIANAdmitter: PAULINO 10:37:00 PM EST PENELOPE Ellis Patient discharged. Emergency Attender: LITZY ED STAFF 06/23/2019 04:58:00 PM [facility] PHYSICIANAttender: STAFF ED EST - 06/24/2019 [facility] STAFF PHYSICIANAdmitter: LITZY 02:50:00 AM EST ED STAFF PHYSICIAN Patient discharged. Emergency Attender: LITZY ED STAFF 06/16/2019 06:18:00 PM [facility] PHYSICIANAttender: STAFF ED RUST - 06/16/2019 [facility] STAFF PHYSICIANAdmitter: LITZY 09:48:00 PM RUST ED STAFF PHYSICIAN Patient discharged. Emergency Attender: STAFF ED STAFF H 06/16/2019 05:45:00 AM [facility] PHYSICIAN EST - 06/16/2019 05:52:00 Center AM EST Patient discharged. Emergency Attender: JOSE ED STAFF H 06/16/2019 02:25:00 AM [facility] PHYSICIANAttender: STAFF ED EST - 06/16/2019 [facility] STAFF PHYSICIAN 09:02:00 AM EST Patient discharged. Emergency Attender: ED STAFF H 06/15/2019 01:01:00 PM [facility] PHYSICIANAttender: STAFF ED RUST - 06/15/2019 [facility] STAFF PHYSICIANAdmitter: ED 07:10:00 PM EST STAFF PHYSICIAN Patient discharged. Emergency Attender: LITZY ED STAFF 06/14/2019 08:05:00 PM [facility] PHYSICIANAttender: ED STAFF RUST - 06/15/2019 [facility] PHYSICIANAttender: STAFF ED 06:52:00 AM EST STAFF PHYSICIANAdmitter: [facility] ED STAFF PHYSICIAN Patient discharged. Emergency Attender: ED STAFF 06/13/2019 06:15:00 PM [facility] PHYSICIANAttender: [facility] ED RUST - 06/14/2019 [facility] STAFF PHYSICIANAttender: STAFF 05:26:00 AM RUST ED STAFF PHYSICIANAdmitter: ED STAFF PHYSICIAN Patient discharged. Emergency Attender: FRANCISCA ED STAFF 06/12/2019 08:47:00 PM [facility] PHYSICIANAttender: STAFF ED EST - 06/12/2019 [facility] STAFF PHYSICIANAdmitter: 09:46:00 PM EST [facility] ED STAFF PHYSICIANReferrer: STAFF ED STAFF PHYSICIAN Patient discharged. [facility] 06/12/2019 05:09:00 PM [facility] PHYSICIANAttender: LITZY ED RUST - 06/12/2019 [facility] STAFF PHYSICIANAttender: STAFF 06:37:00 PM RUST ED STAFF PHYSICIANAdmitter: [facility] STAFF PHYSICIANReferrer: STAFF ED STAFF PHYSICIAN Patient discharged. Emergency Attender: ED STAFF H 06/10/2019 05:55:00 PM [facility] PHYSICIANAttender: STAFF ED EST - 06/10/2019 [facility] STAFF PHYSICIAN 10:34:00 PM EST Patient discharged. Emergency Attender: LITZY ED STAFF H 06/09/2019 08:54:00 PM [facility] PHYSICIANAttender: ED STAFF EST - 06/09/2019 [facility] PHYSICIANAttender: STAFF ED 10:57:00 PM EST STAFF PHYSICIANAdmitter: [facility] ED STAFF PHYSICIAN Patient discharged. Emergency Attender: LITZY ED STAFF H 06/09/2019 06:18:00 PM [facility] PHYSICIANAttender: STAFF ED EST - 06/09/2019 [facility] STAFF PHYSICIANAdmitter: LITZY 07:46:00 PM EST ED STAFF PHYSICIAN Patient discharged. Emergency Attender: LITZY ED STAFF H 06/09/2019 02:23:00 PM [facility] PHYSICIANAttender: STAFF ED EST - 06/09/2019 [facility] STAFF PHYSICIANAdmitter: LITZY 06:43:00 PM EST ED STAFF PHYSICIAN Patient discharged. Emergency Attender: ED STAFF H 06/08/2019 08:07:00 PM [facility] PHYSICIANAttender: [facility] ED EST - 06/09/2019 [facility] STAFF PHYSICIANAttender: STAFF 08:46:00 AM EST ED STAFF PHYSICIANAdmitter: ED STAFF PHYSICIANReferrer: STAFF ED STAFF PHYSICIAN Patient discharged. Emergency Attender: LITZY ED STAFF 06/07/2019 04:26:00 PM [facility] PHYSICIANAttender: STAFF ED EST - 06/07/2019 [facility] STAFF PHYSICIANAdmitter: LITZY 08:39:00 PM EST ED STAFF PHYSICIAN Patient discharged. Emergency Attender: LEONEL ED STAFF 06/06/2019 06:19:00 PM [facility] PHYSICIANAttender: STAFF ED EST - 06/06/2019 [facility] STAFF PHYSICIANAdmitter: LEONEL 11:22:00 PM EST ED STAFF PHYSICIAN Patient discharged. Emergency Attender: JOSE ED STAFF H 06/06/2019 11:50:00 AM [facility] PHYSICIANAttender: STAFF ED EST - 06/06/2019 [facility] STAFF PHYSICIANAdmitter: 06:05:00 PM EST DE KALB ED STAFF PHYSICIAN Patient discharged. Emergency Attender: STAFF ED STAFF H 06/05/2019 05:53:00 PM [facility] PHYSICIANReferrer: STAFF ED EST - 06/06/2019 [facility] STAFF PHYSICIAN 11:24:00 AM EST Patient discharged. Emergency Attender: ED STAFF H 06/03/2019 02:42:00 PM [facility] PHYSICIANAttender: STAFF ED EST - 06/03/2019 [facility] STAFF PHYSICIANAdmitter: ED 07:12:00 PM EST STAFF PHYSICIAN Patient discharged. Emergency Attender: STAFF ED STAFF H 06/02/2019 03:47:00 PM [facility] Medical PHYSICIAN EST - 06/03/2019 06:24:00 Center AM EST Patient discharged. Emergency Attender: STAFF ED STAFF H-ER 06/01/2019 07:03:00 [facility] PHYSICIANAdmitter: STAFF ED PM EST - 06/02/2019 [facility] STAFF PHYSICIAN 09:42:00 AM EST Patient discharged. Emergency Attender: LEONEL ED STAFF H 06/01/2019 01:42:00 PM [facility] PHYSICIANAttender: STAFF ED EST - 06/01/2019 [facility] STAFF PHYSICIANAdmitter: LEONEL 01:45:00 PM EST ED STAFF PHYSICIAN Patient discharged. Emergency Attender: AGUILAR ED STAFF H 06/01/2019 01:37:00 PM [facility] PHYSICIANAttender: LEONEL ED EST - 06/01/2019 [facility] STAFF PHYSICIANAttender: STAFF 04:28:00 PM EST ED STAFF PHYSICIANAdmitter: AGUILAR ED STAFF PHYSICIAN Patient discharged. Emergency Attender: PAULINO Sage 05/31/2019 02:29:00 PM [facility] Deborah: STAFF ED STAFF EST - 05/31/2019 [facility] PHYSICIANAdmitter: PAULINO 08:32:00 PM EST PENELOPE Ellis Patient discharged. Emergency Attender: ED STAFF H 05/29/2019 02:39:00 PM [facility] PHYSICIANAttender: STAFF ED EST - 05/30/2019 [facility] STAFF PHYSICIANAdmitter: ED 07:02:00 AM EST STAFF PHYSICIAN Patient discharged. Emergency Attender: ED STAFF H 05/28/2019 09:23:00 PM [facility] PHYSICIANAttender: STAFF ED EST - 05/29/2019 [facility] STAFF PHYSICIANAdmitter: ED 07:28:00 AM EST STAFF PHYSICIANReferrer: STAFF ED STAFF PHYSICIAN Patient discharged. Emergency Attender: LEONEL ED STAFF H 05/28/2019 01:26:00 PM [facility] PHYSICIANAttender: STAFF ED EST - 05/29/2019 [facility] STAFF PHYSICIANAdmitter: LEONEL 01:06:00 AM EST ED STAFF PHYSICIAN Patient discharged. Emergency Attender: LEONEL ED STAFF H 05/24/2019 06:37:00 PM [facility] PHYSICIANAttender: STAFF ED EST - 05/25/2019 [facility] STAFF PHYSICIAN 10:33:00 AM EST Patient discharged. Emergency Attender: JOSE ED STAFF H 05/24/2019 12:04:00 PM [facility] PHYSICIANAttender: STAFF ED EST - 05/24/2019 [facility] STAFF PHYSICIANAdmitter: 09:12:00 PM EST JOSE ED STAFF PHYSICIAN Patient discharged. Emergency Attender: FRANCISCA ED STAFF H 05/22/2019 10:10:00 PM [facility] PHYSICIANAttender: STAFF ED EST - 05/23/2019 [facility] STAFF PHYSICIANAdmitter: 09:05:00 AM EST [facility] ED STAFF PHYSICIAN Patient discharged. Emergency Attender: LITZY ED STAFF H 05/22/2019 02:13:00 PM [facility] PHYSICIANAttender: FRANCISCA ED EST - 05/23/2019 [facility] STAFF PHYSICIANAttender: STAFF 12:13:00 AM EST ED STAFF PHYSICIANAdmitter: LITZY ED STAFF PHYSICIAN Patient discharged. Emergency Attender: FRANCISCA ED STAFF H 05/21/2019 02:44:00 PM [facility] PHYSICIANAttender: LEONEL ED EST - 05/22/2019 [facility] STAFF PHYSICIANAttender: STAFF 12:01:00 AM EST ED STAFF PHYSICIANAdmitter: [facility] ED STAFF PHYSICIAN Patient discharged. Emergency Attender: ED STAFF H 05/20/2019 06:51:00 PM [facility] PHYSICIANAttender: STAFF ED EST - 05/21/2019 [facility] STAFF PHYSICIANAdmitter: ED 11:22:00 AM EST STAFF PHYSICIAN Patient discharged. Emergency Attender: ED STAFF H 05/19/2019 09:29:00 PM [facility] PHYSICIANAttender: STAFF ED EST - 05/20/2019 [facility] STAFF PHYSICIANAdmitter: ED 06:30:00 AM EST STAFF PHYSICIAN Patient discharged. Emergency Attender: AGUILAR ED STAFF H 05/18/2019 01:40:00 PM [facility] PHYSICIANAttender: STAFF ED EST - 05/18/2019 [facility] STAFF PHYSICIANAdmitter: AGUILAR 10:18:00 PM EST ED STAFF PHYSICIAN Patient discharged. Emergency Attender: STAFF ED STAFF H 05/17/2019 11:12:00 PM [facility] Medical PHYSICIAN EST - 05/18/2019 08:10:00 Center AM EST Patient discharged. Emergency Attender: JOSE ED STAFF H 05/17/2019 12:42:00 PM [facility] PHYSICIANAttender: LITZY ED EST - 05/17/2019 [facility] STAFF PHYSICIANAttender: STAFF 10:01:00 PM EST ED STAFF PHYSICIANAdmitter: DE KALB ED STAFF PHYSICIAN Patient discharged. Emergency Attender: STAFF ED STAFF H 05/16/2019 08:04:00 PM [facility] PHYSICIANReferrer: STAFF ED EST - 05/17/2019 [facility] STAFF PHYSICIAN 08:38:00 AM EST Patient discharged. Emergency Attender: ED STAFF H 05/15/2019 04:42:00 PM [facility] PHYSICIANAttender: STAFF ED EST - 05/16/2019 [facility] STAFF PHYSICIANAdmitter: ED 08:39:00 AM EST STAFF PHYSICIANReferrer: STAFF ED STAFF PHYSICIAN Patient discharged. Emergency Attender: FRANCISCA ED STAFF H 05/14/2019 11:53:00 PM [facility] PHYSICIANAttender: STAFF ED EST - 05/15/2019 [facility] STAFF PHYSICIANAdmitter: 06:49:00 AM EST [facility] ST[facility] PHYSIC[facility] Patient discharged. Emergency Attender: FRANCISCA ED STAFF H 05/14/2019 03:32:00 PM [facility] PHYSICIANAttender: STAFF ED EST - 05/14/2019 [facility] STAFF PHYSICIANAdmitter: 11:00:00 PM EST [facility] ED STAFF PHYSICIAN Patient discharged. Inpatient Attender: RACHEL CORNEJO H-HAL5 05/07/2019 08:12:00 [facility] AKINOAttender: STAFF ED STAFF AM EST - 05/14/20 [facility] PHYSICIANAdmitter: AKINO 10:16:00 AM EST CLEMENTE OLSENOReferrer: RACHEL RAMOS Patient discharged. Emergency Attender: ED STAFF H 05/06/2019 05:37:00 PM [facility] PHYSICIANAttender: STAFF ED EST - 05/07/2019 [facility] STAFF PHYSICIANAdmitter: ED 04:16:00 AM EST STAFF PHYSICIAN Patient discharged. Emergency Attender: JOSE ED STAFF H 05/05/2019 04:09:00 PM [facility] PHYSICIANAttender: ED STAFF EST - 05/06/2019 [facility] PHYSICIANAttender: STAFF ED 09:14:00 AM EST STAFF PHYSICIANAdmitter: DE KALB ED STAFF PHYSICIAN Patient discharged. Emergency Attender: STAFF ED STAFF H 05/04/2019 08:43:00 PM [facility] PHYSICIAN EST - 05/05/2019 06:47:00 Center AM EST Patient discharged. Emergency Attender: STAFF ED STAFF H 05/02/2019 03:18:00 PM [facility] PHYSICIAN EST - 05/02/2019 11:40:00 Center PM EST Patient discharged. Emergency Attender: LITZY ED STAFF H 05/01/2019 02:04:00 PM [facility] PHYSICIANAttender: STAFF ED EST - 05/01/2019 [facility] STAFF PHYSICIANAdmitter: LITZY 07:36:00 PM EST ED STAFF PHYSICIAN Patient discharged. Emergency Attender: ED STAFF H 04/30/2019 07:51:00 PM [facility] PHYSICIANAttender: STAFF ED EST - 05/01/2019 [facility] STAFF PHYSICIANAdmitter: ED 07:42:00 AM EST STAFF PHYSICIANReferrer: STAFF ED STAFF PHYSICIAN Patient discharged. Emergency Attender: STAFF ED STAFF 04/30/2019 02:40:00 PM [facility] PHYSICIAN RUST - 04/30/2019 09:24:00 Center PM EST Patient discharged. Emergency Attender: ED STAFF 04/29/2019 08:43:00 PM [facility] PHYSICIANAttender: STAFF ED EST - 04/30/2019 [facility] STAFF PHYSICIANAdmitter: ED 07:18:00 AM EST STAFF PHYSICIAN Patient discharged. Emergency Attender: STAFF ED STAFF 04/29/2019 02:53:00 AM [facility] PHYSICIAN RUST - 04/29/2019 09:26:00 Center AM EST Patient discharged. Emergency Attender: JOSE ED STAFF 04/28/2019 03:54:00 PM [facility] PHYSICIANAttender: STAFF ED EST - 04/28/2019 [facility] STAFF PHYSICIANAdmitter: 09:41:00 PM EST DE KALB ED STAFF PHYSICIAN Patient discharged. Emergency Attender: Joseu Sage 04/27/2019 03:35:00 PM [facility] Andrea MDAttender: STAFF ED EST - 04/28/2019 Center STAFF PHYSICIAN 05:12:00 PM EST Patient discharged. Emergency Attender: STAFF ED STAFF H 04/26/2019 12:56:00 PM [facility] PHYSICIAN EST - 04/27/2019 05:57:00 Center AM EST Patient discharged. Emergency Attender: ED STAFF H 04/24/2019 01:54:00 AM [facility] PHYSICIANAttender: STAFF ED EST - 04/24/2019 [facility] STAFF PHYSICIANAdmitter: ED 09:19:00 AM EST STAFF PHYSICIAN Patient discharged. Emergency Attender: LEONEL ED STAFF H 04/23/2019 01:05:00 PM [facility] PHYSICIANAttender: STAFF ED EST - 04/23/2019 [facility] STAFF PHYSICIANAdmitter: LEONEL 08:40:00 PM EST ED STAFF PHYSICIAN Patient discharged. Emergency Attender: LITZY ED STAFF H 04/22/2019 04:09:00 PM [facility] PHYSICIANAttender: JOSE ED EST - 04/23/2019 [facility] STAFF PHYSICIANAttender: STAFF 08:02:00 AM EST ED STAFF PHYSICIANAdmitter: [facility] ED STAFF PHYSICIAN Patient discharged. Emergency Attender: JOSE ED STAFF H 04/21/2019 12:10:00 PM [facility] PHYSICIANAttender: ED STAFF EST - 04/22/2019 [facility] PHYSICIANAttender: STAFF ED 06:50:00 AM EST STAFF PHYSICIANAdmitter: ED STAFF PHYSICIAN Patient discharged. Emergency Attender: AGUILAR ED STAFF H 04/20/2019 01:07:00 PM [facility] PHYSICIANAttender: FRANCISCA ED EST - 04/21/2019 [facility] STAFF PHYSICIANAttender: STAFF 05:19:00 AM EST ED STAFF PHYSICIANAdmitter: AGUILAR ED STAFF PHYSICIAN Patient discharged. Emergency Attender: STAFF ED STAFF H 04/19/2019 09:58:00 PM [facility] Medical PHYSICIAN EST - 04/20/2019 08:24:00 Center AM EST Patient discharged. Emergency Attender: LITZY ED STAFF 04/19/2019 05:01:00 PM [facility] PHYSICIANAttender: STAFF ED EST - 04/19/2019 [facility] STAFF PHYSICIANAdmitter: LITZY 07:11:00 PM EST ED STAFF PHYSICIAN Patient discharged. Emergency Attender: JOSE ED STAFF H 04/19/2019 01:30:00 PM [facility] PHYSICIANAttender: LITZY ED EST - 04/19/2019 [facility] STAFF PHYSICIANAttender: STAFF 07:00:00 PM EST ED STAFF PHYSICIANAdmitter: JOSE ED STAFF PHYSICIAN Patient discharged. Emergency Attender: LEONEL ED STAFF H 04/18/2019 02:10:00 PM [facility] PHYSICIANAttender: STAFF ED EST - 04/19/2019 [facility] STAFF PHYSICIAN 08:34:00 AM EST Patient discharged. Emergency Attender: STAFF ED STAFF H 04/17/2019 07:23:00 PM [facility] PHYSICIAN EST - 04/18/2019 08:39:00 Center AM EST Patient discharged. Emergency Attender: LITZY ED STAFF H 04/16/2019 05:51:00 PM [facility] PHYSICIANAttender: ED STAFF EDT - 04/17/2019 [facility] PHYSICIANAttender: STAFF ED 03:56:00 AM EST STAFF PHYSICIANAdmitter: LITZY ED STAFF PHYSICIANReferrer: STAFF ED STAFF PHYSICIAN Patient discharged. Emergency H 04/11/2019 06:11:00 PM EDT - [address] [place] [address] 06:15:00 PM EDT Patient discharged. Emergency Admitter: ED STAFF H 04/11/2019 06:10:00 PM [facility] PHYSICIAN EDT - 04/12/2019 06:22:00 Center AM EDT Patient discharged. Emergency Attender: ED STAFF H 04/10/2019 07:46:00 PM [facility] PHYSICIANAdmitter: ED STAFF EDT - 04/11/2019 [facility] PHYSICIAN 07:41:00 AM EDT Patient discharged. Emergency Admitter: ED STAFF H 04/09/2019 09:12:00 PM [facility] PHYSICIAN EDT - 04/10/2019 07:41:00 Center AM EDT Patient discharged. Emergency H 04/08/2019 05:24:00 PM EDT - [address] [place] [address] 07:14:00 AM EDT Patient discharged. Emergency H 04/07/2019 04:50:00 AM EDT - [address] [place] [address] 08:39:00 AM EDT Patient discharged. Emergency Attender: AGUILAR ED STAFF H 04/06/2019 12:36:00 PM [facility] PHYSICIANAdmitter: AGUILAR ED EDT - 04/06/2019 [facility] STAFF PHYSICIAN 06:56:00 PM EDT Patient discharged. Emergency H 04/06/2019 01:23:00 AM EDT - [address] [place] [address] 01:23:00 PM EDT Patient discharged. Emergency H-ER 04/05/2019 03:07:00 PM EDT - [facility] 04/05/2019 10:17:00 PM EDT Patient discharged. Emergency Admitter: LEONEL ED STAFF H 04/04/2019 04:47:00 PM [facility] EDT - 04/05/2019 08:41:00 Center AM EDT Patient discharged. Emergency H 04/03/2019 05:58:00 PM EDT - [address] [place] [address] 07:07:00 AM EDT Patient discharged. Emergency H 04/02/2019 08:14:00 PM EDT - [address] [place] [address] 05:08:00 AM EDT Patient discharged. Emergency H 04/01/2019 07:44:00 PM EDT - [address] [place] [address] 07:05:00 AM EDT Patient discharged. Emergency H 03/31/2019 02:22:00 PM EDT - [address] [place] [address] 04:41:00 PM EDT Patient discharged. Emergency H 03/30/2019 04:51:00 PM EDT - [address] [place] [address] 08:20:00 AM EDT Patient discharged. Emergency H-ER 03/26/2019 06:15:00 PM EDT - [facility] 03/27/2019 07:01:00 AM EDT Patient discharged. Emergency H 03/25/2019 03:53:00 PM EDT - [address] [place] [address] 07:45:00 AM EDT Patient discharged. Emergency H 03/24/2019 07:50:00 PM EDT - [address] [place] [address] 06:06:00 AM EDT Patient discharged. Emergency H 03/24/2019 12:27:00 PM EDT - [address] [place] [address] 02:32:00 PM EDT Patient discharged. Emergency H 03/23/2019 01:31:00 PM EDT - [facility] [place] [address] 06:43:00 AM EDT Patient discharged. Emergency H 03/22/2019 10:58:00 PM EDT - [address] [place] [address] 08:46:00 AM EDT Patient discharged. Emergency H 03/16/2019 09:22:00 PM EDT - [address] [place] [address] 08:35:00 AM EDT Patient discharged. Emergency H 03/11/2019 06:34:00 PM EDT - [address] [place] [address] 06:53:00 AM EDT Patient discharged. Emergency H 03/10/2019 06:16:00 PM EDT - [address] [place] [address] 06:17:00 AM EDT Patient discharged. Emergency H 03/05/2019 08:33:00 PM EDT - [address] [place] [address] 06:17:00 AM EDT Patient discharged. Emergency H 03/04/2019 10:25:00 PM EDT - [address] [place] [address] 06:21:00 AM EDT Patient discharged. Emergency H 03/03/2019 06:39:00 PM EDT - [address] [place] [address] 08:38:00 AM EDT Patient discharged. Emergency H 03/02/2019 04:28:00 PM EDT - [address] [place] [address] 06:28:00 AM EDT Patient discharged. Emergency H-ER 03/01/2019 07:38:00 PM EDT - [facility] 03/02/2019 06:43:00 AM EDT Patient discharged. Emergency H 03/01/2019 11:58:00 AM EDT - [address] [place] [address] 03:10:00 PM EDT Patient discharged. Emergency H 02/28/2019 07:10:00 PM EDT - [address] [place] [address] 06:36:00 AM EDT Patient discharged. Emergency H 02/27/2019 04:55:00 PM EDT - [address] [place] [address] 09:21:00 PM EDT Patient discharged. Emergency H 02/24/2019 01:31:00 PM EDT - [address] [place] [address] 05:19:00 PM EDT Patient discharged. Emergency H 02/23/2019 10:43:00 PM EDT - [address] [place] [address] 06:26:00 AM EDT Patient discharged. Emergency Attender: AGUILAR ED STAFF H 02/23/2019 03:53:00 PM [facility] PHYSICIANAdmitter: AGUILAR ED EDT - 02/23/2019 [facility] STAFF PHYSICIAN 11:10:00 PM EDT Patient discharged. Emergency H 02/22/2019 05:36:00 PM EDT - [address] [place] [address] 08:17:00 AM EDT Patient discharged. Emergency H 02/21/2019 05:19:00 PM EDT - [address] [place] [address] 09:06:00 AM EDT Patient discharged. Emergency H 02/19/2019 04:37:00 PM EDT - [address] [place] [address] 06:12:00 AM EDT Patient discharged. Emergency H 02/18/2019 05:43:00 PM EDT - [address] [place] [address] 10:19:00 PM EDT Patient discharged. Emergency H 02/17/2019 07:32:00 PM EDT - [address] [place] [address] 10:22:00 AM EDT Patient discharged. Emergency H 02/17/2019 11:35:00 AM EDT - [address] [place] [address] 05:03:00 PM EDT Patient discharged. Emergency Attender: AGUILAR YOUNG STAFF H 02/16/2019 08:31:00 PM [facility] PHYSICIAN EDT - 02/17/2019 09:52:00 Center AM EDT Patient discharged. Emergency H 02/15/2019 01:28:00 PM EDT - [address] [place] [address] 06:06:00 PM EDT Patient discharged. Emergency H 02/14/2019 08:12:00 PM EDT - [address] [place] [address] 08:23:00 AM EDT Patient discharged. Emergency H 02/13/2019 07:09:00 PM EDT - [address] [place] [address] 08:26:00 AM EDT Patient discharged. Emergency H 02/12/2019 01:57:00 PM EDT - [address] [place] [address] 04:14:00 AM EDT Patient discharged. Emergency H 02/11/2019 07:52:00 PM EDT - [address] [place] [address] 06:29:00 AM EDT Patient discharged. Emergency H 02/11/2019 01:28:00 PM EDT - [address] [place] [address] 06:46:00 PM EDT Patient discharged. Emergency H 02/09/2019 08:58:00 PM EDT - [address] [place] [address] 06:43:00 AM EDT Patient discharged. Emergency H 02/08/2019 01:31:00 PM EDT - [address] [place] [address] 08:50:00 AM EDT Patient discharged. Emergency H 02/07/2019 09:32:00 PM EDT - [address] [place] [address] 09:31:00 AM EDT Patient discharged. Emergency Attender: [facility] 02/05/2019 04:12:[facility] [place] [facility] - 02/06/2019 02:51:00 Center AM EDT Patient discharged. Emergency H 02/04/2019 06:27:00 PM EDT - [address] [place] [address] 06:44:00 AM EDT Patient discharged. Emergency H 02/03/2019 08:22:00 PM EDT - [address] [place] [address] 08:16:00 AM EDT Patient discharged. Emergency H-ER 02/02/2019 11:00:00 PM EDT - [facility] 02/03/2019 08:30:00 AM EDT Patient discharged. Emergency H 02/01/2019 09:37:00 PM EDT - [address] [place] [address] 08:40:00 AM EDT Patient discharged. Emergency H 02/01/2019 02:08:00 PM EDT - [address] [place] [address] 08:34:00 PM EDT Patient discharged. Emergency H 01/31/2019 03:49:00 PM EDT - [address] [place] [address] 08:20:00 PM EDT Patient discharged. Emergency H 01/29/2019 09:40:00 PM EDT - [address] [place] [address] 07:27:00 AM EDT Patient discharged. Emergency H 01/29/2019 12:08:00 PM EDT - [address] [place] [address] 07:18:00 PM EDT Patient discharged. Emergency H-ER 01/26/2019 06:27:00 PM EDT - [facility] 01/27/2019 06:21:00 AM EDT Patient discharged. Inpatient Attender: ELIANA AMES 01/24/2019 07:34:00 [facility] VALERIAANIEGOAdmitter: ELIANA PM EDT - 01/26/2019 [facility] SAMANIEGOReferrer: ELIANA 09:40:00 AM EDT FAVIO Patient discharged. Inpatient Attender: ELIANA AMES 01/19/2019 12:40:00 [facility] SAMANIEGOAttender: [place] PM EDT - 01/24/2019 [facility] LEEAdmitter: ELIANA 08:33:00 AM EDT SAMANIEGOReferrer: ELIANA STAHL Patient discharged. Immunizations Vaccine Date Status Description Data Source(s) Tdap 09/17/2019 completed [facility] edical 08:17:00 PM EDT Center Note that this vaccine 08/19/2019 [facility] Medical name has changed. See 08:48:00 PM EST Ce nter also Td (adult). It is not adsorbed. Note that this vaccine 08/19/2019 [facility] Medical name has changed. See 08:48:00 PM EST Ce nter also Td (adult). It is not adsorbed. Note that this vaccine 06/28/2019 [facility] Medical name has changed. See 12:42:00 AM EST Ce nter also Td (adult). It is not adsorbed. Medications Medication Brand Start Product Dose Route Administrative Pharmacy [facility] Indications Reaction Description Data Name [...] NaCl 0.9% 999 UNK active 0.9% NaCl [facility] IV NaCl 2020 mL IV 1000 mL; [facility] IV 05:17: IV rate: Health 42 PM Bolus over Care EST 30 minutes Corporati o n Medication administered onsite 0.9% 0.9% 08/16/2019 1000 mL UNK active 0.9% NaC l [place] NaCl IV NaCl IV 05:17:42 PM IV 1000 mL; [facility] EST IV rate: Care Bolus over Corporati on 30 minutes Medication administered onsite Insurance Providers Payer name Policy type Policy ID Covered Covered democrat's Policy P robert / Coverage democrat ID relationship to Thompson Inf ormation type thompson JM [id number] SP [id number] HEALTH NON CAP JM CARE W [id number] 01 [id number] OR MEDICAID [id number] SP [id number] JM CARE W [id number] 01 [id number] W [id number] JM [id number] SP [id number] 300 HEALTH NON CAP JM CARE W [id number] 01 [id number] MEDICAID [id number] SP [id number] SELF PAY [id number] Self [id number] MEDICAID INP [id number] Self [id number] U REHAB MMC JM [id number] Self [id number] CARE MEDICAID [id number] SP [id number] JM CARE W [id number] 01 [id number] [place] [id number] SP [id number] JM W [id number] 01 [id number] UNK UNK UNK UNK UNK UNK JM CARE W [id number] 01 [id number] [place] CARE W [id number] 01 [id number] [place] J[place] CARE W [id number] 01 [id number] JM W [id number] 01 [id number] JM CARE W [id number] 01 [id number] 13 [place] JM CARE W [id number] 01 [id number] [place] J[place] CARE W [id number] 01 [id number] [place] W [id number] 01 [id number] W [id number] 01 [id number] JM CARE W [id number] 01 [id number] R-LIABILIT [id number] Y W [id number] 01 [id number] 01 [id number] JM W [id number] 01 [id number] JM W [id number] 01 [id number] W [id number] 13-00 JM W [id number] 01 [id number] W [id number] 01 [id number] Problems, Conditions, and Diagnoses Code Display Name Description Problem Type Effective Data Sour ce(s) Dates F10.20 Alcohol dependence, ALCOHOL Diagnosis 03/26/2020 [facility] uncomplicated DEPENDENCE, 07:51:00 PM Medical C enter UNCOMPLICATED EDT F17.210 Nicotine NICOTINE Diagnosis 03/24/2020 [facility] dependence, DEPENDENCE, 05:26:[address] cigarettes, CIGARETTES, EDT uncomplicated UNCOMPLICATED J44.9 Chronic obstructive CHRONIC Diagnosis 03/24/2020 [facility] pulmonary disease, OBSTRUCTIVE 05:26:00 PM [facility] unspecified PULMONARY DISEASE, EDT UNSPECIFIED F10.129 Alcohol abuse with ALCOHOL ABUSE WITH Diagnosis 0 [facility] intoxication, INTOXICATION, 05:26:00 PM Medical Center unspecified UNSPECIFIED EDT Z59.0 Homelessness HOMELESSNESS Diagnosis 03/23/2020 [facility] 05:47:00 PM [facility] Cent[facility] r EDT 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 03/20/2020 [facility] heart disease of DISEASE OF ENTERPRISE 01:00:00 PM [facility] [place] coronary CORONARY ARTERY EDT artery without W/O ANG PCTRS angina pectoris E83.42 Hypomagnesemia HYPOMAGNESEMIA Diagnosis 03/20/2020 [facility] 01:00:00 PM [facility] Cent[facility] r EDT E87.6 Hypokalemia HYPOKALEMIA Diagnosis 03/20/2020 [facility] 01:00:00 PM [facility] Cent[facility] r EDT D50.9 Iron deficiency IRON DEFICIENCY Diagnosis 03/20/2020 Ronald Quiros anemia, unspecified ANEMIA, 01:00:00 PM [facility] UNSPECIFIED EDT I10 Essential (primary) ESSENTIAL [...] Quiros pulmonary embolism OF PULMONARY 01:00:00 PM [facility] EMBOLISM EDT I24.9 Acute ischemic ACUTE [...] reasons Y99.9 Unspecified UNSPECIFIED Diagnosis 02/09/2020 [facility] external cause EXTERNAL CAUSE 02:45:00 AM Medic [...] other ABRASION OF OTHER Diagnosis 02/09/2020 [facility] part of head, PART OF HEAD, 02:45:00 AM Medical Center initial encounter INITIAL ENCOUNTER EDT E86.0 Dehydration DEHYDRATION Diagnosis 01/24/2020 [place] 01:40:00 PM Medical Cent[facility] r EDT M54.9 Dorsalgia, DORSALGIA, Diagnosis 01/19/2020 [facility] unspecified UNSPECIFIED 11:13:[address] EDT Z76.5 Malingerer MALINGERER Diagnosis 12/30/2019 [facility] [conscious (CONSCIOUS 08:35:00 PM Medical Cente r simulation] SIMULATION) EDT R40.2410 Jc coma scale JC COMA SCALE Diagnosis 0 [facility] score 13-15, SCORE 13-15, 04:36:00 PM Medical C enter unspecified time UNSPECIFIED TIME EDT R07.89 Other chest pain OTHER CHEST PAIN Diagnosis 12/24/2019 [facility] [place] 11:12:00 PM Medical Cente r EDT R07.9 Chest pain, CHEST PAIN, Diagnosis 12/24/2019 [place] unspecified UNSPECIFIED 11:12:[address] EDT F32.9 Major depressive MAJOR DEPRESSIVE Diagnosis 12/10/2019 [facility] [place] disorder, single DISORDER, SINGLE 06:39:00 PM edical Center episode, EPISODE, EDT unspecified UNSPECIFIED M54.2 Cervicalgia CERVICALGIA Diagnosis 12/08/2019 [place] 01:04:00 PM Medical Cente r EDT Y92.[address] AND Diagnosis 11/30/[address] [place] [address] the [address] 03:04:[address] of occurrence EDT of the external cause Y93.9 Activity, ACTIVITY, Diagnosis 11/30/2019 [facility] unspecified UNSPECIFIED 03:04:00 AM Medical [facility] ter EDT W19.XXXA Unspecified fall, UNSPECIFIED FALL, Diagnosis 11/30/2019 [facility] initial encounter INITIAL ENCOUNTER 03:04:00 AM Medical Center EDT S01.91XA Laceration without LACERATION W/O Diagnosis 11/30/2019 [facility] [place] foreign body of FOREIGN BODY OF 03:04:00 AM [facility] unspecified part of UNSP PART OF [...] eyeball and orbital EYEBALL AND 05:20:00 PM [facility] tissues, left eye, ORBITAL TISSUES, EDT initial encounter LEFT EYE, INIT S00.212A Abrasion of left ABRASION OF LEFT Diagnosis 11/23/2019 [facility] [place] eyelid and EYELID AND 05:20:00 [...] Unspecified injury UNSPECIFIED INJURY Diagnosis 0 [facility] of head, initial OF HEAD, INITIAL 01:37:00 PM edical Center encounter ENCOUNTER EDT U07.1 COVID-19 ACUTE COVID-19 ACUTE Diagnosis 10/30/2019 [facility] RESPIRATORY DISEASE RESPIRATORY 02:58:00 PM [facility] DISEASE EDT R06.00 Dyspnea, DYSPNEA, Diagnosis 10/30/2019 [facility] unspecified UNSPECIFIED 02:58:00 PM Medical [facility] ter EDT Z00.00 Encounter for ENCNTR FOR GENERAL Diagnosis 10/21/2019 Rafael [facility] general adult ADULT MEDICAL EXAM 12:18:00 AM [facility] medical examination W/O ABNORMAL EDT without abnormal FINDINGS findings Y93.89 Activity, other ACTIVITY, OTHER Diagnosis 10/18/2019 [facility] specified SPECIFIED 06:11:00 AM [facility]T S80.211A Abrasion, right ABRASION, RIGHT Diagnosis 10/18/2019 [facility] knee, initial KNEE, INITIAL 06:11:00 AM Medical Center encounter ENCOUNTER EDT Z04.89 ENCOUNTER FOR ENCOUNTER FOR Diagnosis 10/18/2019 [facility] EXAMINATION AND EXAMINATION AND 06:11:00 AM [facility] OBSERVATION FOR OTH OBSERVATION FOR EDT REASONS OTH REASONS R41.0 Disorientation, DISORIENTATION, Diagnosis 10/13/2019 [facility]ros unspecified UNSPECIFIED 07:53:00 AM Medical [facility] ter EDT M25.511 Pain in right PAIN IN RIGHT Diagnosis 10/11/2019 [facility]ph[facility] shoulder SHOULDER 02:37:00 PM Medical [facility] EDT R06.02 Shortness of breath SHORTNESS OF Diagnosis 10/06/2019 [facility]ros BREATH 09:24:00 AM Medical [facility] EDT R51 Headache HEADACHE Diagnosis 09/19/2019 [place] 07:49:00 AM Medical [facility] EDT F17.200 Nicotine NICOTINE Diagnosis 09/19/2019 [place] dependence, DEPENDENCE, 07:49:00 AM Medical [facility] ter unspecified, UNSPECIFIED, EDT uncomplicated UNCOMPLICATED D64.9 Anemia, unspecified ANEMIA, Diagnosis 09/19/2019 [facility] UNSPECIFIED 07:49:00 AM Medical [facility] EDT M62.81 Muscle weakness MUSCLE WEAKNESS Diagnosis 09/19/2019 Ronald [facility]iros (generalized) (GENERALIZED) 07:49:00 AM Medical Center EDT E46 Unspecified UNSPECIFIED Diagnosis 09/19/2019 [facility] protein-calorie PROTEIN-CALORIE 07:49:00 AM [facility] malnutrition MALNUTRITION EDT Z68.30 Body mass index BODY MASS INDEX Diagnosis 09/19/2019 Ronald t [place] (BMI) 30.0-30.9, (BMI) 30.0-30.9, 07:49:00 AM [facility] adult ADULT EDT H70.90 Unspecified UNSPECIFIED Diagnosis 09/17/2019 [facility] [place] mastoiditis, MASTOIDITIS, 05:08:00 PM Medical C enter unspecified ear UNSPECIFIED EAR EDT M19.90 Unspecified UNSPECIFIED Diagnosis 09/17/2019 [facility] [place] osteoarthritis, OSTEOARTHRITIS, 05:08:00 PM [facility] unspecified site UNSPECIFIED SITE EDT S00.03XA Contusion of scalp, CONTUSION OF Diagnosis 09/17/2019 [facility] initial encounter SCALP, INITIAL 05:08:00 PM Il dical [facility] ENCOUNTER EDT S00.01XA Abrasion of scalp, ABRASION OF SCALP, Diagnosis 0 [facility] initial encounter INITIAL ENCOUNTER 05:08:00 PM [facility] EDT R05 Cough COUGH Diagnosis 09/13/2019 [facility] 08:56:00 AM Medical [facility] EDT R50.9 Fever, unspecified FEVER, UNSPECIFIED Diagnosis 0 [facility] 07:50:00 AM Medical [facility] EDT S22.089A Unspecified UNSP FRACTURE OF Diagnosis 08/27/2019 [facility] fracture of T11-T12 T11-T12 VERTEBRA, 08:45:00 PM Medical Center vertebra, initial INIT FOR CLOS FX EDT encounter for closed fracture S01.01XA Laceration without LACERATION WITHOUT Diagnosis 0 [facility] [place] foreign body of FOREIGN BODY OF 07:15:00 PM [facility] scalp, initial SCALP, INITIAL EST encounter ENCOUNTER Z91.018 Allergy to other ALLERGY TO OTHER Diagnosis 08/16/[address] [facility] 03:33:00 PM [facility] I10 Essential (primary) ESSENTIAL Diagnosis 08/16/2019 [facility] oliver hypertension (PRIMARY) 03:33:00 PM [facility] HYPERTENSION EST Care [employer] F10.10 Alcohol abuse, ALCOHOL ABUSE, Diagnosis 08/16/2019 [place] uncomplicated UNCOMPLICATED 03:33:00 PM [facility] [employer] [facility] F10.129 Alcohol abuse with ALCOHOL ABUSE WITH Diagnosis 0 [place] intoxication, INTOXICATION, 03:33:00 PM [facility] unspecified UNSPECIFIED [employer] [facility] [employer] K57.90 Diverticulosis of DVRTCLOS OF Diagnosis 08/08/2019 [facility] intestine, part INTEST, PART UNSP, 04:28:00 PM Medical Center unspecified, W/O PERF OR EST without perforation ABSCESS W/O BLEED or abscess without bleeding R10.9 Unspecified UNSPECIFIED Diagnosis 08/08/2019 [facility] abdominal pain ABDOMINAL PAIN 04:28:00 PM Medic al Center EST M79.641 Pain in right hand PAIN IN RIGHT HAND Diagnosis 0 [facility] 03:03:00 AM Medical Cente r EST S60.221A Contusion of right CONTUSION OF RIGHT Diagnosis 0 [facility] hand, initial HAND, INITIAL 01:34:00 PM Medical Center encounter ENCOUNTER EST R60.9 Edema, unspecified EDEMA, UNSPECIFIED Diagnosis 0 [facility] 01:34:00 PM Medical Cente r EST W01.0XXA Fall on same level FALL SAME LEV FROM Diagnosis 0 [facility] from slipping, SLIP/TRIP W/O 03:59:00 AM [facility] tripping and STRIKE AGAINST EST stumbling without OBJECT, INIT subsequent striking against object, initial encounter S63.614A Unspecified sprain UNSPECIFIED SPRAIN Diagnosis 0 [facility] of right ring OF RIGHT RING 03:59:00 AM Medical Center finger, initial FINGER, INITIAL EST encounter ENCOUNTER S63.616A Unspecified sprain UNSPECIFIED SPRAIN Diagnosis 0 [facility] of right little OF RIGHT LITTLE 03:59:00 AM [facility] Center finger, initial FINGER, INITIAL EST encounter ENCOUNTER Z00.8 Encounter for other ENCOUNTER FOR Diagnosis 06/12/2019 Sa [place] Quiros general examination OTHER GENERAL 08:47:00 PM [facility] EST M25.512 Pain in left PAIN IN LEFT Diagnosis 06/09/2019 [facility] shoulder SHOULDER 06:18:00 PM Medical Cente r EST S80.212A Abrasion, left ABRASION, LEFT Diagnosis 06/09/2019 [facility] knee, initial KNEE, INITIAL 06:18:00 PM Medical Center encounter ENCOUNTER EST Y92.219 Unspecified school UNS SCHOOL THE Diagnosis 9 [facility] as [...] [facility] urgency URGENCY 10:16:00 AM Medical [facility] EST Y90.0 Blood alcohol level BLOOD ALCOHOL Diagnosis 05/14/2019 [place] Quiros of less than 20 LEVEL OF LESS THAN 10:16:00 AM Medical Center mg/100 ml 20 MG/100 ML EST M25.519 Pain in unspecified PAIN IN Diagnosis 05/02/2019 [facility] shoulder UNSPECIFIED 03:18:00 PM [facility] er SHOULDER EST Y92.[address] as the SIDEWALK THE Diagnosis 04/29/[address] of occurrence PL[address] OF 02:53:00 AM [facility] of the external OCCURRENCE OF THE EST cause EXTERNAL CAUSE S42.031A Displaced fracture DISP FX OF LATERAL Diagnosis 9 [facility] of lateral end of END OF RIGHT 01:54:00 AM [facility] right clavicle, CLAVICLE, INIT FOR EST initial encounter CLOS FX for closed fracture F10.29 Alcohol dependence ALCOHOL DEPENDENCE Diagnosis 9 [facility] with unspecified WITH UNSPECIFIED 04:09:00 PM edical [facility] 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 Procedure and PROC/TRTMT NOT CRD Diagnosis 02/27/2019 Rafael Quiros treatment not OUT D/T PT LV BEF 04:55:00 PM [facility] carried out due to SEEN BY [facility] CARE EDT patient leaving PROV prior to being seen by health care provider L60.0 Ingrowing nail INGROWING NAIL Diagnosis 02/15/2019 [facility] 01:28:00 PM Medical Cente r EDT Results ID Date Data Source Liver 03/20/2020 05:45:00 AM EDT [facility] Profile.[id number] Name Value Range Interpretation Description Data Sup [...] s"> (0.2-1.3 MG/DL)</content> ID Date Data Source HematologyRou.[id number] 03/20/2020 05:45:00 AM EDT Rafael [facility] 0400 Name Value Range Interpretation [...] (< 1 %)</content> ID Date Data Source GFR(Creatinine).[id number] 03/20/2020 05:45:00 AM EDT [facility] 0-0400 Name Value Range Interpretation Code Description Data Pebbles rce(s) Supporting Document(s ) UNK > 60 <content [facility] styleCode="Bold"> Medical Cent er EGFR </content>144 GFR<content styleCode="Italic s"> (> 60 GFR)</content> ID Date Data Source Coagulation 03/20/2020 05:45:00 AM [facility] ical Center Rout.[id number] EDT Name Value Range Interpretation Description Data [...] cs"> (25.1-36.5 SEC)</content> ID Date Data Source CHMROUTINECCDA.[id number] 03/20/2020 05:45:00 AM EDT [facility] -0400 Name Value Range Interpretation [...] (2.5-4.5 MG/DL)</conten t> ID Date Data Source [facility].[id number] 03/20/2020 05:45:00 AM EDT [facility] Name Value Range Interpretation Description Data Sup porting Code Source(s) Document(s ) Chloride 98-107 <content Saint [Moles/volume] in styleCode="Bold"> [facility] Serum or Plasma Chloride Medical </content>102 Center MEQ/L<content styleCode="Italic s"> (98-107 MEQ/L)</content> Sodium 137-145 Below low <content Saint [Moles/volume] in normal styleCode="Bold"> [facility] Serum or Plasma Sodium Medical </content>136 [...] Data Source Liver 03/19/2020 05:30:00 AM EDT [facility] Profile.[id number] Name Value Range Interpretation Description Data Sup [...] s"> (0.2-1.3 MG/DL)</content> ID Date Data Source HematologyRou.[id number] 03/19/2020 05:30:00 AM EDT Rafael [facility] 0400 Name Value Range Interpretation [...] (< 1 %)</content> ID Date Data Source GFR(Creatinine).[id number] 03/19/2020 05:30:00 AM EDT Rafael [facility] 0-0400 Name Value Range Interpretation Code Description Data Pebbles rce(s) Supporting Document(s ) UNK > 60 <content [facility] styleCode="Bold"> Medical Cent er EGFR </content>177 GFR<content styleCode="Italic s"> (> 60 GFR)</content> ID Date Data Source Coagulation 03/19/2020 05:30:00 AM [facility] Rout.[id number] EDT Name Value Range Interpretation Description Data Sup porting Code Source(s) Document(s ) UNK 9.0-13.0 Above high normal <content [facility] styleCode="Bold" [place] >Protime Medical </content>13.1 Center SEC H<content styleCode="Itali cs"> (9.0-13.0 SEC)</content> INR in 0.80-1.2 <content Saint Platelet poor 0 styleCode="Bold" [facility] plasma by >INR Medical Coagulation </content>1.18 Center assay #<content styleCode="Itali cs"> (0.80-1.20 #)</content> aPTT in 25.1-36. Above high normal <content [facility] Platelet poor 5 styleCode="Bold" [place] plasma by >Partial Medical Coagulation Thromboplastin Center assay Time </content>40.5 SEC H<content styleCode="Itali cs"> (25.1-36.5 SEC)</content> ID Date Data Source CHMROUTINECCDA.[id number] 03/19/2020 05:30:00 AM EDT Rafael [facility] -0400 Name Value Range Interpretation Description Data Sup porting Code Source(s) Document(s ) UNK 2.3-3.5 <content Saint styleCode="[place] d">Globulin Medical </content>2.5 Center G/DL<content styleCode="Zakia lics"> (2.3-3.5 G/DL)</content > UNK >= 1.0 <content Saint styleCode="Mac [place] d">AG Ratio Medical </content>1.3 Center <content styleCode="Zakia lics"> (>= 1.0 )</content> Phosphate 2.5-4.5 <content Saint [Mass/volume] styleCode="Mac [facility]iros in Serum or d">Phosphorus Medical Plasma </content>3.7 [...] (6.3-8.2 G/DL)</content > ID Date Data Source [facility].[id number] 03/19/2020 05:30:00 AM EDT [facility] Name Value Range Interpretation Description Data Sup porting Code Source(s) Document(s ) Sodium 137-145 Below low <content Saint [Moles/volume] in normal styleCode="Bold"> [facility] Serum or Plasma Sodium Medical </content>135 Center [...] 98-107 <content Saint [Moles/volume] in styleCode="Bold"> [facility] Serum or Plasma Chloride Medical </content>99 [...] Data Source Liver 03/18/2020 06:51:00 AM EDT [facility] Profile.[id number] Name Value Range Interpretation Description Data Sup [...] s"> (3.5-5.0 G/DL)</content> ID Date Data Source HematologyRou.[id number] 03/18/2020 06:51:00 AM EDT Rafael [facility] 0400 Name Value Range Interpretation [...] high <content Saint distribution 5 normal styleCode="Bold [place] width [Ratio] by ">Red Cell Medical Automated [...] (< 1 %)</content> ID Date Data Source GFR(Creatinine).[id number] 03/18/2020 06:51:00 AM EDT [facility] 0-0400 Name Value Range Interpretation Code Description Data Pebbles rce(s) Supporting Document(s ) UNK > 60 <content [facility] styleCode="Bold"> Medical Cent er EGFR </content>229 GFR<content styleCode="Italic s"> (> 60 GFR)</content> ID Date Data Source Coagulation 03/18/2020 06:51:00 AM [facility] ical Center Rout.[id number] EDT Name Value Range Interpretation Description Data [...] cs"> (25.1-36.5 SEC)</content> ID Date Data Source CHMROUTINECCDA.[id number] 03/18/2020 06:51:00 AM EDT [facility] -0400 Name Value Range Interpretation [...] (6.3-8.2 G/DL)</content > ID Date Data Source [facility].[id number] 03/18/2020 06:51:00 AM EDT [facility] Name Value Range Interpretation Code Description Data Pebbles rce(s) Supporting Document(s ) UNK <content [facility] styleCode="Bold" Medical Cente r >Blood Type </content>GROUP O (Reference Range: not available)
UNK NEGATIVE <content [facility] styleCode="Bold" Medical Cente r >Antibody Screen </content>NEGATI VE <content styleCode="Itali cs"> (NEGATIVE )</content> UNK <content [facility] styleCode="Bold" Medical Cente r >RH Type </content>POSITI VE (Reference Range: not available)
ID Date Data Source [facility].[id number] 03/18/2020 06:51:00 AM EDT [facility] Name Value Range Interpretation Description Data [...] Date Data Source Coagulation 03/17/2020 08:48:00 PM [facility] ical Center Rout.[id number] EDT Name Value Range Interpretation Description Data Sup porting Code Source(s) Document(s ) aPTT in 25.1-36. Above high normal <content [facility] Platelet poor 5 styleCode="Bold" [place] plasma by >Partial Medical Coagulation Thromboplastin Center assay Time </content>90.0 SEC H<content styleCode="Itali cs"> (25.1-36.5 SEC)</content> ID Date Data Source Stools.[id number] 03/17/2020 03:45:00 PM EDT [facility] Name Value Range Interpretation Code Description Data Pebbles rce(s) Supporting Document(s ) UNK NEGATIVE <content [facility] styleCode="Bold" Medical Cente r >Guaiac, Occult Blood </content>NEGATI VE <content styleCode="Itali cs"> (NEGATIVE )</content> ID Date Data Source Liver 03/17/2020 10:30:00 AM EDT [facility] Profile.[id number] Name Value Range Interpretation Description Data Sup [...] s"> (3.5-5.0 G/DL)</content> ID Date Data Source HematologyRou.[id number] 03/17/2020 10:30:00 AM EDT Rafael [facility] 0400 Name Value Range Interpretation Description Data Sup porting Code Source(s) Document(s ) Erythrocytes 4.4-5.9 Below low normal <content Saint [#/volume] in styleCode="Bold [facility] Blood by ">Red Blood Medical Automated [...] ics"> (NORMAL )</content> ID Date Data Source GFR(Creatinine).[id number] 03/17/2020 10:30:00 AM EDT [facility] 0-0400 Name Value Range Interpretation Code Description Data Pebbles rce(s) Supporting Document(s ) UNK > 60 <content [facility] styleCode="Bold"> Medical Cent er EGFR </content>144 GFR<content styleCode="Italic s"> (> 60 GFR)</content> ID Date Data Source ChemistrySpecia.[id number] 03/17/2020 10:30:00 AM EDT [facility] 0-0400 Name Value Range Interpretation Description Data Sup porting Code Source(s) Document(s ) Cobalamin 239-931 <content (Vitamin B12) styleCode="Mac [facility] [Mass/volume] d">Vitamin B12 Medical in Serum or </content>265 Center Plasma PG/ML<content styleCode="Zakia lics"> (239-931 PG/ML)</conten t> Folate > 3.0 <content Saint [Mass/volume] styleCode="[facility] [place] in Serum or d">Folic Acid Medical Plasma </content>4.27 Center NG/ML<content styleCode="Zakia lics"> (> 3.0 NG/ML)</conten t> ID Date Data Source REMIGIO.[id number] 03/17/2020 10:30:00 AM EDT [facility] -0400 Name Value Range Interpretation Description Data Sup porting Code Source(s) Document(s ) UNK 2.3-3.5 <content [facility] styleCode="Bold Medical ">Globulin Center </content>2.6 G/DL<content styleCode="Ital ics"> (2.3-3.5 G/DL)</content> Folate > 3.0 <content [facility] [Mass/volum styleCode="Bold Medical e] in Serum ">Folic Acid Center or Plasma </content>4.27 NG/ML<content styleCode="Ital ics"> (> 3.0 NG/ML)</content > UNK >= 1.0 <content [facility] styleCode="Bold Medical ">AG Ratio Center </content>1.4 <content styleCode="Ital ics"> (>= 1.0 )</content> Protein 6.3-8.2 Below low normal <content [facility] [Mass/volum styleCode="Bold Medical e] in Serum ">Total Protein Center or Plasma </content>6.2 G/DL L<content styleCode="Ital ics"> (6.3-8.2 G/DL)</content> ID Date Data Source CardiacMarkers.[id number] 03/17/2020 10:30:00 AM EDT [facility] -0400 Name Value Range Interpretation Description Data Sup porting Code Source(s) Document(s ) Troponin < 0.034 <content [facility] I.cardiac styleCode="Bold [place] [Mass/volume ">Troponin I Medical ] in Serum </content>< Center or Plasma 0.012 NG/ML<content styleCode="Ital ics"> (< 0.034 NG/ML)</content > ID Date Data Source [facility].[id number] 03/17/2020 10:30:00 AM EDT [facility] Name Value Range Interpretation Description Data [...] s"> (0.2-1.3 MG/DL)</content> ID Date Data Source CardiacMarkers.[id number] 03/17/2020 07:25:00 AM EDT [facility] -0400 Name Value Range Interpretation Description Data Sup porting Code Source(s) Document(s ) Troponin < 0.034 <content [facility] I.cardiac styleCode="Bold [place] [Mass/volume ">Troponin I Medical ] in Serum </content>< Center or Plasma 0.012 NG/ML<content styleCode="Ital ics"> (< 0.034 NG/ML)</content > ID Date Data Source HematologyRou.[id number] 03/17/2020 07:06:00 AM EDT [facility] 0400 Name Value Range Interpretation [...] (0.0 KCUMM)</content > ID Date Data Source GFR(Creatinine).[id number] 03/17/2020 07:06:00 AM EDT [facility] 0-0400 Name Value Range Interpretation Code Description Data Pebbles rce(s) Supporting Document(s ) UNK > 60 <content [facility] styleCode="Bold"> Medical Cent er EGFR </content>144 GFR<content styleCode="Italic s"> (> 60 GFR)</content> ID Date Data Source JORGE LUISMROUTINECCDA.[id number] 03/17/2020 07:06:00 AM EDT [facility] -0400 Name Value Range Interpretation [...] (1.6-2.3 MG/DL)</conten t> ID Date Data Source BMP.[id number] 03/17/2020 07:06:00 AM EDT [facility] Name Value Range Interpretation Description Data [...] Quiros in Serum or d">Glucose Medical Plasma </content>119 Center MG/DL H<content styleCode="Zakia lics"> (74-106 MG/DL)</conten t> UNK > 60 <content Saint styleCode="Mac [place] d">EGFR Medical </content>144 Center GFR<content styleCode="Zakia lics"> (> 60 GFR)</content> ID Date Data Source [id number] 03/17/2020 12:00:00 AM EDT [facility] Name Value Range Interpretation Code Description Data Pebbles rce(s) Supporting Document(s ) 2019-nCoV [facility] RNA XXX CHERRI+probe- Imp This lab was ordered by [facility] and reported by [employer]. ID Date Data Source [id number] 02/11/2020 02:59:00 PM EDT [facility] Name Value Range Interpretation Description Data Sup porting Code Source(s) Document(s ) SARS [facility] coronavirus 2 RNA This lab was ordered by [facility] Uriel Lynn and reported by [facility]. ID Date Data Source [id number] 01/13/2020 11:43:00 PM EDT [facility] Name Value Range Interpretation Description Data Sup porting Code Source(s) Document(s ) SARS [facility] coronavirus 2 RNA This lab was ordered by Miguel vergara[facility]amses and reported by [facility]. ID Date Data Source [id number] 01/11/2020 11:30:00 AM EDT [facility] Name Value Range Interpretation Description Data Sup porting Code Source(s) Document(s ) SARS [facility] coronavirus 2 RNA This lab was ordered by [facility] and reported by [facility]. ID Date Data Source HematologyRou.[id number] 12/30/2019 11:00:00 PM EDT [facility] 0400 Name Value Range Interpretation Description Data Sup porting Code Source(s) Document(s ) Erythrocytes 4.4-5.9 Below low normal <content Saint [#/volume] in styleCode="[facility] Blood by ">Red Blood Medical Automated count Cell Count [facility] </content>3.55 MCUMM L<content styleCode="Ital ics"> (4.4-5.9 MCUMM)</content [...] ics"> (8.0-11.0 FL)</content> ID Date Data Source GFR(Creatinine).[id number] 12/30/2019 11:00:00 PM EDT [facility] 0-0400 Name Value Range Interpretation Code Description Data Pebbles rce(s) Supporting Document(s ) UNK > 60 <content [facility] styleCode="Bold"> Medical Cent er EGFR </content>144 GFR<content styleCode="Italic s"> (> 60 GFR)</content> ID Date Data Source CHMROUTINECCDA.[id number] 12/30/2019 11:00:00 PM EDT [facility] -0400 Name Value Range Interpretation Description Data Sup porting Code Source(s) Document(s ) Magnesium 1.6-2.3 Below low normal <content Saint [Mass/volume] styleCode="Mca [facility] in Serum or d">Magnesium Medical Plasma </content>1.2 Center MG/DL L<content styleCode="Zakia lics"> (1.6-2.3 MG/DL)</conten t> Phosphate 2.5-4.5 <content [facility] [Mass/volume] styleCode="Mac [place] in Serum or d">Phosphorus Medical Plasma </content>4.0 Center MG/DL<content styleCode="Zakia lics"> (2.5-4.5 MG/DL)</conten t> ID Date Data Source [facility].[id number] 12/30/2019 11:00:00 PM EDT [facility] Name Value Range Interpretation Description Data [...] lower panic <content [facility] [Moles/volume] limits styleCode="Mac Ihsaan in Serum or d">Potassium Medical Plasma </content><con [...] (> 60 GFR)</content> ID Date Data Source HematologyRou.[id number] 12/25/2019 12:50:00 AM EDT [facility] 0400 Name Value Range Interpretation [...] (0.0 KCUMM)</content > ID Date Data Source GFR(Creatinine).[id number] 12/25/2019 12:50:00 AM EDT [facility] 0-0400 Name Value Range Interpretation Code Description Data Pebbles rce(s) Supporting Document(s ) UNK > 60 <content [facility] styleCode="Bold"> Medical Cent er EGFR </content>178 GFR<content styleCode="Italic s"> (> 60 GFR)</content> ID Date Data Source CardiacMarkers.[id number] 12/25/2019 12:50:00 AM EDT [facility] -0400 Name Value Range Interpretation Description Data Sup porting Code Source(s) Document(s ) Troponin < 0.034 <content [facility] I.cardiac styleCode="Bold [facility] [Mass/volume ">Troponin I Medical ] in Serum </content>< Center or Plasma 0.012 NG/ML<content styleCode="Ital ics"> (< 0.034 NG/ML)</content > ID Date Data Source BMP.[id number] 12/25/2019 12:50:00 AM EDT [facility] Name Value Range Interpretation Description Data [...] (8.4-10.2 MG/DL)</conten t> ID Date Data Source HematologyRou.[id number] 12/03/2019 08:37:00 PM EDT [facility] 0400 Name Value Range Interpretation Description Data [...] ics"> (< 1 %)</content> UNK NORMAL <content [facility] styleCode="Bold Ishaan ">Hypochromia Medical </content>MODER Center ATE <content styleCode="Ital ics"> (NORMAL )</content> ID Date Data Source GFR(Creatinine).[id number] 12/03/2019 08:37:00 PM EDT Rafael [facility] 0-0400 Name Value Range Interpretation Code Description Data Pebbles rce(s) Supporting Document(s ) UNK > 60 <content [facility] styleCode="Bold"> Medical Cent er EGFR </content>178 GFR<content styleCode="Italic s"> (> 60 GFR)</content> ID Date Data Source [facility].[id number] 12/03/2019 08:37:00 PM EDT Rafael [facility] -0400 Name Value Range Interpretation Description Data Sup porting Code Source(s) Document(s ) Magnesium 1.6-2.3 Below low normal <content [facility] [Mass/volume] styleCode="Mac Ish[place] in Serum or d">Magnesium Medical Plasma </content>1.5 Center MG/DL L<content styleCode="Zakia lics"> (1.6-2.3 MG/DL)</conten t> ID Date Data Source [facility].[id number] 12/03/2019 08:37:00 PM EDT [facility] Name Value Range Interpretation Description Data [...] (> 60 GFR)</content> ID Date Data Source [id number] 11/27/2019 11:55:00 AM EDT [facility] Name Value Range Interpretation Description Data Sup porting Code Source(s) Document(s ) SARS [facility] CORONAVIRUS 2 RNA This lab was ordered by [facility] and reported by [facility]. ID Date Data Source Liver 11/25/2019 12:40:00 PM EDT [facility] Profile.[id number] Name Value Range Interpretation Description Data Sup [...] Range: not available)
ID Date Data Source HematologyRou.[id number] 11/25/2019 12:40:00 PM EDT [facility] 0400 Name Value Range Interpretation [...] NORMAL <content [facility] styleCode="Bold Ish[place] ">Macrocyte Medical </content>[facility] T <content styleCode="Ital ics"> (NORMAL )</content> UNK NORMAL <content [facility] styleCode="Bold [place] ">Microcyte Medical </content>[facility] T <content styleCode="Ital ics"> (NORMAL )</content> UNK NORMAL <content [facility] styleCode="Bold [place] ">Hypochromia Medical </content>[facility] T <content styleCode="Ital ics"> (NORMAL )</content> ID Date Data Source GFR(Creatinine).[id number] 11/25/2019 12:40:00 PM EDT [facility] 0-0400 Name Value Range Interpretation Code Description Data Pebbles rce(s) Supporting Document(s ) UNK <content [facility] styleCode="Bold"> Medical Cent er EGFR </content>Test not performed. GFR (Reference Range: not available)
ID Date Data Source Coagulation 11/25/2019 12:40:00 PM [facility] Rout.[id number] EDT Name Value Range Interpretation Description Data [...] cs"> (25.1-36.5 SEC)</content> ID Date Data Source CHMROUTINECCDA.[id number] 11/25/2019 12:40:00 PM EDT [facility] -0400 Name Value Range Interpretation [...] Range: not available)
ID Date Data Source CardiacMarkers.[id number] 11/25/2019 12:40:00 PM EDT [facility] -0400 Name Value Range Interpretation Description Data Sup porting Code Source(s) Document(s ) Troponin < 0.034 <content [facility] I.cardiac styleCode="[facility] [Mass/volume ">Troponin I Medical ] in Serum </content>< Center or Plasma 0.012 NG/ML<content styleCode="Ital ics"> (< 0.034 NG/ML)</content > ID Date Data Source BMP.[id number] 11/25/2019 12:40:00 PM EDT [facility] Name Value Range Interpretation Description Data [...] Range: not available)
ID Date Data Source [id number] 11/12/2019 10:10:00 AM EDT [facility] Name Value Range Interpretation Description Data Sup porting Code Source(s) Document(s ) SARS [facility] CORONAVIRUS 2 RNA This lab was ordered by [facility] and reported by [facility]. ID Date Data Source [id number] 10/06/2019 09:50:00 AM EDT [facility] Name Value Range Interpretation Code Description Data Pebbles rce(s) Supporting Document(s ) COV2 [facility] This lab was ordered by [facility] and reported by [facility]. ID Date Data Source [id number] 09/21/2019 05:56:00 PM EDT [facility] Name Value Range Interpretation Description Data Sup porting Code Source(s) Document(s ) SARS [facility] CORONAVIRUS 2 RNA This lab was ordered by [facility] and reported by [facility]. ID Date Data Source Microbiology.[id number] 09/18/2019 06:20:00 AM EDT [facility] 400 Name Value Range Interpretation Code Description Data Pebbles rce(s) Supporting Document(s ) UNK <item><content [facility] styleCode="Bold"> Medical Cent er Culture Status </content>
<t able><tbody><tr>< td>Specimen Number:</td><td>[id number]</td></tr ><tr><td>Sample Collection Date/Time: </td><td>09/18/2019 6:20 AM</td></tr><tr>< td>Specimen Source:</td><td>B LOOD</td></tr><tr ><td>Blood Culture:</td><td> Collection Plate Date: 09/18/2019 06:41 </td></tr><tr><td >Culture Report:</td><td>N O GROWTH AFTER 48 HOURS </td></tr><tr><td >Culture Status:</td><td>P reliminary </td></tr></tbody ></table></item> UNK <item><content [facility] styleCode="Bold"> Medical [facility] er Culture Report </content>
<t able><tbody><tr>< td>Specimen Number:</td><td>[id number]</td></tr ><tr><td>Sample Collection Date/Time: </td><td>09/18/2019 6:20 AM</td></tr><tr>< td>Specimen Source:</td><td>B LOOD</td></tr><tr ><td>Blood Culture:</td><td> Collection Plate Date: 09/18/2019 06:41 </td></tr><tr><td >Culture Status:</td><td>P reliminary </td></tr><tr><td >Culture Report:</td><td>N O GROWTH AFTER 48 HOURS </td></tr></tbody ></table></item> ID Date Data Source Microbiology.[id number] 09/18/2019 06:05:00 AM EDT [facility] 400 Name Value Range Interpretation Code Description Data Pebbles rce(s) Supporting Document(s ) UNK <item><content [facility] styleCode="Bold"> Medical [facility] Culture Report </content>
<t able><tbody><tr>< td>Specimen Number:</td><td>[id number]</td></tr ><tr><td>Sample Collection Date/Time: </td><td>09/18/2019 6:05 AM</td></tr><tr>< td>Specimen Source:</td><td>B LOOD</td></tr><tr ><td>Blood Culture:</td><td> Collection Plate Date: 09/18/2019 06:41 </td></tr><tr><td >Culture Status:</td><td>P reliminary </td></tr><tr><td >Culture Report:</td><td>N O GROWTH AFTER 48 HOURS </td></tr></tbody ></table></item> UNK <item><content [facility] styleCode="Bold"> Medical Cent er Culture Status </content>
<t able><tbody><tr>< td>Specimen Number:</td><td>[id number]</td></tr ><tr><td>Sample Collection Date/Time: </td><td>09/18/2019 6:05 AM</td></tr><tr>< td>Specimen Source:</td><td>B LOOD</td></tr><tr ><td>Culture Report:</td><td>N O GROWTH AFTER 48 HOURS </td></tr><tr><td >Culture Status:</td><td>P reliminary </td></tr><tr><td >Blood Culture:</td><td> Collection Plate Date: 09/18/2019 06:41 </td></tr></tbody ></table></item> ID Date Data Source HematologyRou.[id number] 09/17/2019 11:54:00 PM EDT Rafael [facility] 0400 Name Value Range Interpretation Code Description Data Supporting Source(s) Document(s ) UNK 0.5-1.5 Below low normal <content [facility] styleCode="Bold"> Medical Retic % Center </content>0.40 % L<content styleCode="Italic s"> (0.5-1.5 %)</content> UNK 0.018-0.1 Below low normal <content [facility] styleCode="Bold"> Medical Reticulocyte Center Absolute Count </content>0.0148 MCUMM L<content styleCode="Italic s"> (0.018-0.1 MCUMM)</content> UNK 9.3-17.4 <content [facility] styleCode="Bold"> Medical Immature Center Reticulocyte Fraction </content>15.9 %<content styleCode="Italic s"> (9.3-17.4 %)</content> UNK 30.0-38.0 Below low normal <content [facility] styleCode="Bold"> Medical Reticulocyte Center Hemoglobin Equivalent </content>19.5 PG L<content styleCode="Italic s"> (30.0-38.0 PG)</content> ID Date Data Source HematologyRou.[id number] 09/17/2019 11:42:00 PM EDT Rafael [facility] 0400 Name Value Range Interpretation [...] ics"> (8.0-11.0 FL)</content> ID Date Data Source GFR(Creatinine).[id number] 09/17/2019 11:42:00 PM EDT [facility] 0-0400 Name Value Range Interpretation Code Description Data Pebbles rce(s) Supporting Document(s ) UNK > 60 <content [facility] styleCode="Bold"> Medical Cent er EGFR </content>144 GFR<content styleCode="Italic s"> (> 60 GFR)</content> ID Date Data Source ChemistrySpecia.[id number] 09/17/2019 11:42:00 PM EDT [facility] 0-0400 Name Value Range Interpretation Description [...] (239-931 PG/ML)</conten t> ID Date Data Source CHMROUTINECCDA.[id number] 09/17/2019 11:42:00 PM EDT [facility] -0400 Name Value Range Interpretation [...] (2.5-4.5 MG/DL)</conten t> ID Date Data Source CardiacMarkers.[id number] 09/17/2019 11:42:00 PM EDT Rafael [facility] -0400 Name Value Range Interpretation Description Data Sup porting Code Source(s) Document(s ) Troponin < 0.034 <content [facility] I.cardiac styleCode="Bold Ish[place] [Mass/volume ">Troponin I Medical ] in Serum </content>0.024 Center or Plasma NG/ML<content styleCode="Ital ics"> (< 0.034 NG/ML)</content > ID Date Data Source BMP.[id number] 09/17/2019 11:42:00 PM EDT [facility] Name Value Range Interpretation Description Data Sup porting Code Source(s) Document(s ) Sodium 137-145 Below low normal <content Saint [Moles/volume] styleCode="Mac Jacomes in Serum or d">Sodium Medical Plasma </content>135 [...] Data Source Liver 09/06/2019 03:21:00 AM EDT [facility] Profile.[id number] Name Value Range Interpretation Description Data Sup [...] s"> (0.2-1.3 MG/DL)</content> ID Date Data Source HematologyRou.[id number] 09/06/2019 03:21:00 AM EDT Rafael [facility] 0400 Name Value Range Interpretation [...] ics"> (0 /100)</content> ID Date Data Source GFR(Creatinine).[id number] 09/06/2019 03:21:00 AM EDT [facility] 0-0400 Name Value Range Interpretation Code Description Data Pebbles rce(s) Supporting Document(s ) UNK > 60 <content [facility] styleCode="Bold"> Medical Cent er EGFR </content>230 GFR<content styleCode="Italic s"> (> 60 GFR)</content> ID Date Data Source CHMROUTINECCDA.[id number] 09/06/2019 03:21:00 AM EDT [facility] -0400 Name Value Range Interpretation [...] (2.5-4.5 MG/DL)</conten t> ID Date Data Source [facility].[id number] 09/06/2019 03:21:00 AM EDT [facility] Name Value Range Interpretation Description Data Sup porting Code Source(s) Document(s ) Potassium 3.5-5.3 Below lower <content [facility] [Moles/volume] in panic limits styleCode="Bold"> [facility] Serum or Plasma Potassium Medical </content><conten Center t styleCode="Bold"> 2.9 MEQ/L LL</content><cont ent styleCode="Italic s"> (3.5-5.3 MEQ/L)</content> Sodium 137-145 Below low <content [facility] [Moles/volume] in normal styleCode="Bold"> [facility] Serum or Plasma Sodium Medical [...] s"> (3.5-5.0 G/DL)</content> ID Date Data Source CHMROUTINECCDA.[id number] 09/05/2019 10:28:00 AM EDT [facility] -0400 Name Value Range Interpretation Description Data Sup porting Code Source(s) Document(s ) Lactate 0.7-2.0 <content [facility] [Mass/volum styleCode="Bold Medical e] in Serum ">Lactic Acid Center or Plasma </content>1.9 MMOLL<content styleCode="Ital ics"> (0.7-2.0 MMOLL)</content > ID Date Data Source [id number] 09/05/2019 10:24:00 AM EDT [facility] Name Value Range Interpretation Code Description Data Pebbles rce(s) Supporting Document(s ) RESULT [facility] This lab was ordered by [facility] and reported by [facility]. ID Date Data Source Microbiology.[id number] 09/05/2019 10:17:00 AM EDT [facility] 400 Name Value Range Interpretation Code Description Data Pebbles rce(s) Supporting Document(s ) UNK <item><content [facility] styleCode="Bold"> Medical [facility] er Culture Status </content>
<t able><tbody><tr>< td>Specimen Number:</td><td>[id number]</td></tr ><tr><td>Sample Collection Date/Time: </td><td> 0 10:17 AM</td></tr><tr>< td>Specimen Source:</td><td>B LOOD</td></tr><tr ><td>Blood Culture:</td><td> Collection Plate Date: 09/05/2019 10:23 </td></tr><tr><td >Culture Status:</td><td>P reliminary </td></tr><tr><td >Culture Report:</td><td>C ulture in progress </td></tr><tr><td >Gram Stain:</td><td>GR AM POSITIVE COCCI IN CLUSTERS NOTIFIED WITH READ-BACK KERVIN ROLLE RN </td></tr></tbody ></table></item> UNK <item><content [facility] styleCode="Bold"> Medical Cent er Culture Report </content>
<t able><tbody><tr>< td>Specimen Number:</td><td>[id number]</td></tr ><tr><td>Sample Collection Date/Time: </td><td> 0 10:17 AM</td></tr><tr>< td>Specimen Source:</td><td>B LOOD</td></tr><tr ><td>Gram Stain:</td><td>GR AM POSITIVE COCCI IN CLUSTERS NOTIFIED WITH READ-BACK KERVIN ROLLE RN </td></tr><tr><td >Culture Report:</td><td>C ulture in progress </td></tr><tr><td >Culture Status:</td><td>P reliminary </td></tr><tr><td >Blood Culture:</td><td> Collection Plate Date: 09/05/2019 10:23 </td></tr></tbody ></table></item> ID Date Data Source Microbiology.[id number] 09/05/2019 10:16:00 AM EDT [facility] 400 Name Value Range Interpretation Code Description Data Pebbles rce(s) Supporting Document(s ) UNK <item><content [facility] styleCode="Bold"> Medical Cent er Culture Report </content>
<t able><tbody><tr>< td>Specimen Number:</td><td>[id number]</td></tr ><tr><td>Sample Collection Date/Time: </td><td> 0 10:16 AM</td></tr><tr>< td>Specimen Source:</td><td>B LOOD</td></tr><tr ><td>Blood Culture:</td><td> Collection Plate Date: 09/05/2019 10:24 </td></tr><tr><td >Culture Status:</td><td>P reliminary </td></tr><tr><td >Culture Report:</td><td>C ulture in progress </td></tr></tbody ></table></item> UNK <item><content [facility] styleCode="Bold"> Medical Cent er Culture Status </content>
<t able><tbody><tr>< td>Specimen Number:</td><td>[id number]</td></tr ><tr><td>Sample Collection Date/Time: </td><td> 0 10:16 AM</td></tr><tr>< td>Specimen Source:</td><td>B LOOD</td></tr><tr ><td>Culture Report:</td><td>C ulture in progress </td></tr><tr><td >Culture Status:</td><td>P reliminary </td></tr><tr><td >Blood Culture:</td><td> Collection Plate Date: 09/05/2019 10:24 </td></tr></tbody ></table></item> ID Date Data Source Liver 09/05/2019 10:16:00 AM EDT [facility] Profile.[id number] Name Value Range Interpretation Description Data Sup [...] IU/L)</content> Alkaline 38-126 <content Saint phosphatase styleCode="Bold"> [facility] [Enzymatic Alkaline Medical activity/volume] Phosphatase (ALP) [...] s"> (0.2-1.3 MG/DL)</content> ID Date Data Source HematologyRou.[id number] 09/05/2019 10:16:00 AM EDT [facility] 0400 Name Value Range Interpretation [...] styleCode="Ital ics"> (NORMAL )</content> UNK NORMAL <content [facility] styleCode="Bold Ishaan ">Hypochromia Medical </content>[facility] T <content styleCode="Ital ics"> (NORMAL )</content> ID Date Data Source GFR(Creatinine).[id number] 09/05/2019 10:16:00 AM EDT [facility] 0-0400 Name Value Range Interpretation Code Description Data Pebbles rce(s) Supporting Document(s ) UNK > 60 <content [facility] styleCode="Bold"> Medical Cent er EGFR </content>178 GFR<content styleCode="Italic s"> (> 60 GFR)</content> ID Date Data Source CHMROUTALICIACCDA.[id number] 09/05/2019 10:16:00 AM EDT [facility] -0400 Name Value Range Interpretation Description Data Sup porting Code Source(s) Document(s ) UNK 2.3-3.5 <content [facility] styleCode="Bold Medical ">Globulin Center </content>2.6 G/DL<content styleCode="Ital ics"> (2.3-3.5 G/DL)</content> UNK >= 1.0 <content [facility] styleCode="Bold Medical ">AG Ratio Center </content>1.3 <content styleCode="Ital ics"> (>= 1.0 )</content> Protein 6.3-8.2 Below low normal <content [facility] [Mass/volum styleCode="Bold Medical e] in Serum ">Total Protein Center or Plasma </content>6.0 G/DL L<content styleCode="Ital ics"> (6.3-8.2 G/DL)</content> ID Date Data Source [facility].[id number] 09/05/2019 10:16:00 AM EDT [facility] Name Value Range Interpretation Description Data [...] Data Source Liver 08/10/2019 01:50:00 AM EST [facility] Profile.[id number] Name Value Range Interpretation Description Data Sup [...] s"> (3.5-5.0 G/DL)</content> ID Date Data Source HematologyRou.[id number] 08/10/2019 01:50:[address] [place] [address] [facility] 0500 Name Value Range Interpretation Description Data [...] ics"> (0 /100)</content> ID Date Data Source GFR(Creatinine).[id number] 08/10/2019 01:50:00 AM EST Rafael [facility] 0-0500 Name Value Range Interpretation Code Description Data Pebbles rce(s) Supporting Document(s ) UNK > 60 <content [facility] styleCode="Bold"> Medical Cent er EGFR </content>144 GFR<content styleCode="Italic s"> (> 60 GFR)</content> ID Date Data Source BMP.[id number] 08/10/2019 01:50:00 AM EST [facility] Name Value Range Interpretation Description Data [...] Glucose 74-106 <content [facility] [Mass/volume] in styleCode="Bold"> Stephna hs Serum or Plasma Glucose Medical </content>89 [...] s"> (38-126 IU/L)</content> ID Date Data Source Urinalysis.[id number] 08/09/2019 08:03:[address] [facility] 0 Name Value Range Interpretation Description Data [...] by Test d">Urine Medical strip Specific Center [place] </content>1.01 0 L<content styleCode="Zakia lics"> (1.015-1.025 )</content> [...] by 4.5-8.0 <content [facility] Test strip styleCode="Mac Quiros d">Urine pH Medical </content>6.5 Center <content styleCode="Zakia [...] Data Source Liver 08/09/2019 08:03:00 AM EST [facility] Profile.[id number] Name Value Range Interpretation Description Data Sup [...] s"> (0.2-1.3 MG/DL)</content> ID Date Data Source HematologyRou.[id number] 08/09/2019 08:03:00 AM MO Rafael [facility] 0500 Name Value Range Interpretation Description [...] ics"> (0 /100)</content> ID Date Data Source GFR(Creatinine).[id number] 08/09/2019 08:03:00 AM EST [facility] 0-0500 Name Value Range Interpretation Code Description Data Pebbles rce(s) Supporting Document(s ) UNK > 60 <content [facility] styleCode="Bold"> Medical Cent er EGFR </content>178 GFR<content styleCode="Italic s"> (> 60 GFR)</content> ID Date Data Source CHMROUTINECCDA.[id number] 08/09/2019 08:03:00 AM [facility] -0500 Name Value Range Interpretation Description Data Sup porting Code Source(s) Document(s ) UNK 30-110 <content [facility] styleCode="Bold Medical ">Amylase Center </content>35 IU/L<content styleCode="Ital ics"> (30-110 IU/L)</content> Lipase 23-300 Below low normal <content [facility] [Enzymatic styleCode="Bold Medical activity/vo ">Lipase Center lume] in </content>19 Serum or IU/L L<content Plasma styleCode="Ital ics"> (23-300 IU/L)</content> ID Date Data Source [facility].[id number] 08/09/2019 08:03:00 AM EST [facility] Name Value Range Interpretation Description Data [...] Data Source Liver 07/28/2019 06:25:00 AM EST [facility] Profile.[id number] Name Value Range Interpretation Description Data Sup [...] s"> (0.0-0.3 MG/DL)</content> ID Date Data Source HematologyRou.[id number] 07/28/2019 06:25:00 AM MO Rafael [facility] 0500 Name Value Range Interpretation Description [...] ics"> (8.0-11.0 FL)</content> ID Date Data Source GFR(Creatinine).[id number] 07/28/2019 06:25:00 AM [facility] 0-0500 Name Value Range Interpretation Code Description Data Pebbles rce(s) Supporting Document(s ) UNK > 60 <content [facility] styleCode="Bold"> Medical Cent er EGFR </content>178 GFR<content styleCode="Italic s"> (> 60 GFR)</content> ID Date Data Source CardiacMarkers.[id number] 07/28/2019 06:25:00 AM [facility] -0500 Name Value Range Interpretation Description Data Sup porting Code Source(s) Document(s ) Troponin < 0.034 <content [facility] I.cardiac styleCode="Bold [place] [Mass/volume ">Troponin I Medical ] in Serum </content>< Center or Plasma 0.012 NG/ML<content styleCode="Ital ics"> (< 0.034 NG/ML)</content > ID Date Data Source BMP.[id number] 07/28/2019 06:25:00 AM [facility] Name Value Range Interpretation Description [...] MG/DL)</content> Alkaline 38-126 <content [facility] phosphatase styleCode="Bold"> [facility] [Enzymatic Alkaline Medical activity/volume] Phosphatase (ALP) [...] Data Source Liver 05/13/2019 11:52:00 AM EST [facility] Profile.[id number] Name Value Range Interpretation Description Data Sup [...] IU/L)</content> Alkaline 38-126 <content [facility] phosphatase styleCode="Bold"> [facility] [Enzymatic Alkaline Medical activity/volume] Phosphatase (ALP) [...] s"> (3.5-5.0 G/DL)</content> ID Date Data Source HematologyRou.[id number] 05/13/2019 11:52:00 AM [place] [facility] 0500 Name Value Range Interpretation Description Data Sup porting Code Source(s) Document(s ) Leukocytes 4.4-11.0 <content [facility] [#/volume] in styleCode="Bold [facility] Blood by ">White Blood Medical Automated [...] (0.0 KCUMM)</content > ID Date Data Source GFR(Creatinine).[id number] 05/13/2019 11:52:00 AM [facility] 0-0500 Name Value Range Interpretation Code Description Data Pebbles rce(s) Supporting Document(s ) UNK > 60 <content [facility] [place] styleCode="Bold"> Medical Cent er EGFR </content>178 GFR<content styleCode="Italic s"> (> 60 GFR)</content> ID Date Data Source CHMROUTINECCDA.[id number] 05/13/2019 11:52:00 AM [facility] -0500 Name Value Range Interpretation [...] (2.5-4.5 MG/DL)</conten t> ID Date Data Source [facility].[id number] 05/13/2019 11:52:00 AM EST [facility] Name Value Range Interpretation Description Data Sup porting Code Source(s) Document(s ) Sodium 137-145 <content [facility] [Moles/volume] in styleCode="Bold"> [facility] Serum or Plasma Sodium Medical </content>137 Center MEQ/L<content styleCode="Italic s"> (137-145 MEQ/L)</content> Potassium 3.5-5.3 <content [facility] [Moles/volume] in styleCode="Bold"> [facility] Serum or Plasma Potassium Medical </content>3.6 Center MEQ/L<content styleCode="Italic s"> (3.5-5.3 MEQ/L)</content> Chloride 98-107 <content [facility] [Moles/volume] in styleCode="Bold"> [facility] Serum or Plasma Chloride Medical </content>104 Center MEQ/L<content styleCode="Italic s"> (98-107 MEQ/L)</content> Creatinine 0.5-1.3 <content [facility] [Mass/volume] in styleCode="Bold"> [facility] Serum or Plasma Creatinine Medical </content>0.5 Center [...] s"> (38-126 IU/L)</content> ID Date Data Source HematologyRou.[id number] 05/10/2019 05:50:00 AM [place] Hall [facility] 0500 Name Value Range Interpretation Description [...] Platelets 130-400 <content [facility] [#/volume] in styleCode="Bold [place] Blood by ">Platelet Medical Automated count Count [...] styleCode="Ital ics"> (0 /100)</content> UNK 0.0 <content styleCode="Bold [place] ">Nucleated Red Medical Blood Cell Center Count </content>0.00 KCUMM<content styleCode="Ital ics"> (0.0 KCUMM)</content > ID Date Data Source GFR(Creatinine).[id number] 05/10/2019 05:50:00 AM [facility] 0-0500 Name Value Range Interpretation Code Description Data Pebbles rce(s) Supporting Document(s ) UNK > 60 <content [facility] styleCode="Bold"> Medical Cent er EGFR </content>178 GFR<content styleCode="Italic s"> (> 60 GFR)</content> ID Date Data Source CHMROUTINECCDA.[id number] 05/10/2019 05:50:00 AM [facility] -0500 Name Value Range Interpretation [...] (1.6-2.3 MG/DL)</conten t> ID Date Data Source [facility].[id number] 05/10/2019 05:50:00 AM [facility] Name Value Range Interpretation Description [...] Date Data Source Liver 05/09/2019 12:46:00 PM [facility] Profile.[id number] Name Value Range Interpretation Description Data Sup [...] s"> (3.5-5.0 G/DL)</content> ID Date Data Source GFR(Creatinine).[id number] 05/09/2019 12:46:00 PM EST [facility] 0-0500 Name Value Range Interpretation Code Description Data Pebbles rce(s) Supporting Document(s ) UNK > 60 <content [facility] styleCode="Bold"> Medical Cent er EGFR </content>178 GFR<content styleCode="Italic s"> (> 60 GFR)</content> ID Date Data Source MROUTINECCDA.[id number] 05/09/2019 12:46:00 PM MO [facility] -0500 Name Value Range Interpretation [...] (2.5-4.5 MG/DL)</conten t> ID Date Data Source [facility].[id number] 05/09/2019 12:46:00 PM EST [facility] Name Value Range Interpretation [...] MG/DL)</content> UNK > 60 <content [facility] styleCode="Bold"> [facility] EGFR Medical </content>178 Center GFR<content styleCode="Italic s"> [...] IU/L)</content> Alkaline 38-126 <content [facility] phosphatase styleCode="Bold"> [facility] [Enzymatic Alkaline Medical activity/volume] Phosphatase (ALP) [...] Date Data Source Liver 05/08/2019 07:35:00 AM [facility] Profile.[id number] Name Value Range Interpretation Description Data Sup [...] s"> (3.5-5.0 G/DL)</content> ID Date Data Source LIPID.[id number] 05/08/2019 07:35:00 AM [facility] Name Value Range Interpretation Description Data Sup porting Code Source(s) Document(s ) Triglyceride < 150 <content [facility] [Mass/volume] in styleCode="[facility] Serum or Plasma d">Triglycerid Medical es Center </content>104 MG/DL<content styleCode="Zakia lics"> (< 150 MG/DL)</conten t> UNK > 60 Below low normal <content [facility] styleCode="[facility] [place] d">HDL- Medical Cholesterol Center </content>59 MG/DL L<content styleCode="Zakia lics"> (> 60 MG/DL)</conten t> Cholesterol -<200 <content [facility] [Mass/volume] in styleCode="[facility] Serum or Plasma d">Cholesterol Medical </content>154 Center MG/DL<content styleCode="Zakia lics"> (-<200 MG/DL)</conten t> UNK < 100 <content [facility] styleCode="Mac [place] d">LDL-Cholest [facility] candy Center </content>74 MG/DL<content styleCode="Zakia lics"> (< 100 MG/DL)</conten t> ID Date Data Source HematologyRou.[id number] 05/08/2019 07:35:00 AM [place] Hall [facility] 0500 Name Value Range Interpretation Description [...] (0.0 KCUMM)</content > ID Date Data Source GFR(Creatinine).[id number] 05/08/2019 07:35:00 AM [facility] 0-0500 Name Value Range Interpretation Code Description Data Pebbles rce(s) Supporting Document(s ) UNK > 60 <content [facility] styleCode="Bold"> Medical Cent er EGFR </content>178 GFR<content styleCode="Italic s"> (> 60 GFR)</content> ID Date Data Source MROUTINECCDA.[id number] 05/08/2019 07:35:00 AM [facility] -0500 Name Value Range Interpretation [...] (1.6-2.3 MG/DL)</conten t> ID Date Data Source [facility].[id number] 05/08/2019 07:35:00 AM EST [facility] Name Value Range Interpretation Description [...] s"> (3.5-5.0 G/DL)</content> ID Date Data Source Urinalysis.[id number] 05/07/2019 04:00:00 PM EST Rafael [facility] 0 Name Value Range Interpretation Description Data Sup porting Code Source(s) Document(s ) Color of Urine YELLOW <content [facility]Code[facility]">Color, Medical Urine Center </content>AMBE R <content styleCode="Zakia lics"> (YELLOW )</content> UNK CLEAR <content [facility] styleCode[facility]">Urine Medical Clarity Center </content>CLOU DY <content [...] by Test d">Urine Medical strip Specific Center [place] </content>1.01 0 L<content styleCode="Zakia lics"> (1.015-1.025 )</content> [...] (NONE HPF)</content> UNK NEGATIVE <content [facility] styleCode="Mac Quiros d">Urine Medical Bacteria Center </content>FEW HPF<content styleCode="Zakia lics"> (NEGATIVE HPF)</content> UNK NONE SEEN <content [facility] styleCode="Mac Jacomes d">Epithelial Medical Cell Center </content>10 - 20 HPF<content styleCode="Zakia lics"> (NONE SEEN HPF)</content> ID Date Data Source MROUTINECCDA.[id number] 05/07/2019 04:00:00 PM [facility] -0500 Name Value Range Interpretation Description Data Sup porting Code Source(s) Document(s ) Cannabinoids <content Saint [Presence] in styleCode="[facility] Urine by Screen d">Cannabinoid Medical method >50 ng/mL s Center </content>NEGA TIVE NG/ML (Reference Range: not available)<br/ > ID Date Data Source Liver 05/07/2019 02:18:00 PM [facility] Profile.[id number] Name Value Range Interpretation Description Data Sup [...] s"> (3.5-5.0 G/DL)</content> ID Date Data Source GFR(Creatinine).[id number] 05/07/2019 02:18:00 PM EST Rfaael [facility] 0-0500 Name Value Range Interpretation Code Description Data Pebbles rce(s) Supporting Document(s ) UNK > 60 <content [facility] styleCode="Bold"> Medical Cent er EGFR </content>178 GFR<content styleCode="Italic s"> (> 60 GFR)</content> ID Date Data Source [facility].[id number] 05/07/2019 02:18:00 PM EST [facility] Name Value Range Interpretation Description Data Sup porting Code Source(s) Document(s ) Sodium 137-145 <content Saint [Moles/volume] in styleCode="Bold"> [facility] Serum or Plasma Sodium Medical </content>137 Center MEQ/L<content styleCode="Italic s"> (137-145 MEQ/L)</content> Potassium <content [facility] [Moles/volume] in styleCode="Bold"> [facility] Serum or Plasma Potassium Medical </content>Test Center not performed. MEQ/L (Reference Range: not available)
Chloride 98-107 <content [facility] [Moles/volume] in styleCode="Bold"> [facility] Serum or Plasma Chloride Medical </content>99 Center MEQ/L<content styleCode="Italic s"> (98-107 MEQ/L)</content> UNK 9-20 Below low <content Saint normal styleCode="Bold"> [facility] BUN </content>8 Medical MG/DL L<content Center styleCode="Italic [...] s"> (3.5-5.0 G/DL)</content> ID Date Data Source CHMROUTINECCDA.[id number] 05/07/2019 02:18:00 PM [facility] -0500 Name Value Range Interpretation Description Data Sup porting Code Source(s) Document(s ) UNK 2.3-3.5 <content [facility] styleCode="Bold Medical ">Globulin Center </content>2.9 G/DL<content styleCode="Ital ics"> (2.3-3.5 G/DL)</content> UNK >= 1.0 <content [facility] styleCode="Bold Medical ">AG Ratio Center </content>1.1 <content styleCode="Ital ics"> (>= 1.0 )</content> Protein 6.3-8.2 Below low normal <content [facility] [place] [Mass/volum styleCode="Bold Medical e] in Serum ">Total Protein Center or Plasma </content>6.2 G/DL L<content styleCode="Ital ics"> (6.3-8.2 G/DL)</content> ID Date Data Source GFR(Creatinine).[id number] 05/07/2019 12:50:00 PM [facility] 0-0500 Name Value Range Interpretation Code Description Data Pebbles rce(s) Supporting Document(s ) UNK <content [facility] styleCode="Bold"> Medical Cent er EGFR </content>Test not performed. GFR (Reference Range: not available)
ID Date Data Source [facility].[id number] 05/07/2019 12:50:00 PM EST [facility] Name Value Range Interpretation Description [...] Date Data Source Liver 05/07/2019 10:05:00 AM [facility] Profile.[id number] Name Value Range Interpretation Description Data Sup [...] Range: not available)
ID Date Data Source HematologyRou.[id number] 05/07/2019 10:05:00 AM [place] Hall [facility] 0500 Name Value Range Interpretation Description [...] (0.0 KCUMM)</content > ID Date Data Source GFR(Creatinine).[id number] 05/07/2019 10:05:00 AM [facility] 0-0500 Name Value Range Interpretation Code Description Data Pebbles rce(s) Supporting Document(s ) UNK <content [facility] styleCode="Bold"> Medical Cent er EGFR </content>Test not performed. GFR (Reference Range: not available)
ID Date Data Source [facility].[id number] 05/07/2019 10:05:00 AM [facility] Name Value Range Interpretation Description Data Sup porting Code Source(s) Document(s ) Chloride <content Saint [Moles/volume] in styleCode="Bold"> [facility] Serum or Plasma Chloride Medical </content>Test Center not performed. MEQ/L (Reference Range: not available)
Potassium <content [facility] [Moles/volume] in styleCode="Bold"> [facility] Serum or Plasma Potassium Medical </content>Test Center not performed. MEQ/L (Reference Range: not available)
Sodium <content [facility] [Moles/volume] in styleCode="Bold"> [facility] Serum or Plasma Sodium Medical </content>Test Center [...] Data Source Liver 02/19/2019 05:25:00 PM EDT [facility] Profile.[id number] Name Value Range Interpretation Description Data Sup [...] s"> (0.2-1.3 MG/DL)</content> ID Date Data Source HematologyRou.[id number] 02/19/2019 05:25:00 PM EDT Rafael [facility] 0400 Name Value Range Interpretation [...] (130-400 KCUMM)</content > ID Date Data Source GFR(Creatinine).[id number] 02/19/2019 05:25:00 PM EDT Rafael [facility] 0-0400 Name Value Range Interpretation Code Description Data Pebbles rce(s) Supporting Document(s ) UNK > 60 <content [facility] styleCode="Bold"> Medical Cent er EGFR </content>144 GFR<content styleCode="Italic s"> (> 60 GFR)</content> ID Date Data Source [facility].[id number] 02/19/2019 05:25:00 PM EDT [facility] Name Value Range Interpretation Description Data Sup porting Code Source(s) Document(s ) Sodium 137-145 <content [facility] [Moles/volume] in styleCode="Bold"> [facility] Serum or Plasma Sodium Medical </content>145 Center MEQ/L<content styleCode="Italic s"> (137-145 MEQ/L)</content> Potassium <content [facility] [Moles/volume] in styleCode="Bold"> [facility] Serum or Plasma Potassium Medical [...] Value Status Description Data Source(s ) Smoking 04/01/2020 Former Smoker completed Former Smoker [facility] 03:19:00 PM EDT Medical C enter Smoking 04/01/2020 Former Smoker completed Former Smoker [facility] 03:14:00 PM EDT Medical C enter Smoking 03/31/2020 Former Smoker completed Former Smoker [facility] 09:13:00 PM EDT Medical C enter Smoking 03/31/2020 Former Smoker completed Former Smoker [facility] 07:15:00 PM EDT Medical C enter Smoking 03/31/2020 Former Smoker completed Former Smoker [facility] 06:55:00 PM EDT Medical C enter Smoking 03/29/2020 [...] Former Smoker [facility] 08:05:00 PM EDT Medical C enter [...] Smoking 01/06/2020 Former Smoker completed Former Smoker [facility] 01:13:00 PM EDT Medical C enter Smoking 01/05/2020 Former Smoker completed Former Smoker [facility] 09:21:00 PM EDT Medical C enter Smoking 01/05/2020 Former Smoker completed Former Smoker [facility] 09:00:00 PM EDT Medical C enter [...] Smoker completed Former Smoker [facility] 06:00:00 PM EDT Medical C enter Smoking 12/30/2019 Former Smoker completed Former Smoker [facility] 05:18:00 PM EDT Medical C enter Smoking 12/29/2019 Former Smoker completed Former Smoker [facility] 06:21:00 PM EDT Medical C enter Smoking 12/29/2019 Former Smoker completed Former Smoker [facility] 04:10:00 PM EDT Medical C enter Smoking 12/29/2019 Former Smoker completed Former Smoker [facility] 03:50:00 PM EDT Medical C enter Smoking 12/29/2019 Former Smoker completed Former Smoker [facility] 03:38:00 AM EDT Medical C enter [...] 12/04/2019 Former Smoker completed Former Smoker [facility] 09:13:00 PM EDT Medical C enter [...] Smoker completed Former Smoker [facility] 06:25:00 AM EDT Medical C enter Smoking 11/30/2019 Former Smoker completed Former Smoker [facility] 04:49:00 AM EDT Medical C enter Smoking 11/30/2019 Former Smoker completed Former Smoker [facility] 03:15:00 AM EDT Medical C enter Smoking 11/29/2019 Former Smoker completed Former Smoker [facility] 06:25:00 PM EDT Medical C enter Smoking 11/29/2019 Former Smoker completed Former Smoker [facility] 04:54:00 PM EDT Medical C enter Smoking 11/25/2019 Former Smoker completed Former Smoker [facility] 11:31:00 PM EDT Medical C enter Smoking 11/25/2019 Former Smoker completed Former Smoker [facility] 10:11:00 PM EDT Medical C enter Smoking 11/25/2019 Former Smoker completed Former Smoker [facility] 01:34:00 PM EDT Medical C enter [...] Smoker completed Former Smoker [facility] 05:30:00 PM EDT Medical C enter [...] Smoking 10/22/2019 Former Smoker completed Former Smoker [facility] 06:10:00 PM EDT Medical C enter Smoking 10/22/2019 Former Smoker completed Former Smoker [facility] 01:56:00 AM EDT Medical C [...] Smoker completed Former Smoker [facility] 06:31:00 AM EDT Medical C [...] 09/11/2019 Former Smoker completed Former Smoker [facility] 04:22:00 PM EDT Medical C enter [...] Ever completed Denies Ever Smoked [facility] 06:00:00 PM EDT Smoked Medical C enter [...] 02:51:00 PM EDT Smoked Medical C enter Vital Signs ID Date Data Source UNK Name Value Range Interpretation Code Description Data Source(s) Body weight 125.196225 kg 125.432949 kg [facility] Measured [facility] Body temperature 36.873675 Kaylie 36.985773 Kaylie [facility] Respiratory rate 18 /min 18 /min [facility] Oxygen 98 % 98 % [facility] saturation in Medical Arterial blood Center by Pulse oximetry Heart rate 82 /min 82 /min [facility] Body height 185.811056 cm 185.970442 cm [facility] Diastolic blood 78 mm[Hg] 78 mm[Hg] [facility] Systolic blood 134 mm[Hg] 134 mm[Hg] [facility] Body mass index 36.3 kg/m2 36.3 kg/m2 [facility] (BMI) [Ratio] Medical Center Body weight 110.915009 kg 110.292584 kg [facility] Measured Medical Center Body temperature 36.752329 Kaylie 36.210181 Kaylie [facility] Respiratory rate 18 /min 18 /min [facility] Oxygen 98 % 98 % [facility] saturation in [facility] Arterial blood Center by Pulse oximetry Heart rate 74 /min 74 /min [facility] Body height 185.732630 cm 185.891798 cm [facility] Diastolic blood 78 mm[Hg] 78 mm[Hg] [facility] Systolic blood 143 mm[Hg] 143 mm[Hg] [facility] Medical Center Body mass index 31.9 kg/m2 31.9 kg/m2 [facility] (BMI) [Ratio] Medical Center Oxygen 93 % 93 % [facility] [place] saturation in Medical Arterial blood Center by Pulse oximetry Body weight 90.011849 kg 90.835400 kg [facility] Me[facility] Center Body temperature 36.363653 Kaylie 36.666967 Kaylie [facility] Respiratory rate 20 /min 20 /min [facility] Oxygen 90 % 90 % [facility] [place] saturation in Medical Arterial blood Center by Pulse oximetry Heart rate 96 /min 96 /min [facility] Body height 177.812397 cm 177.804509 cm [facility] Diastolic blood 63 mm[Hg] 63 mm[Hg] [facility] pressure Medical Center Systolic blood 120 mm[Hg] 120 mm[Hg] [facility] Medical Center Body mass index 28.4 kg/m2 28.4 kg/m2 [facility] (BMI) [Ratio] Medical Center Body temperature 36.288258 Kaylie 36.238558 Kaylie [facility] Respiratory rate 18 /min 18 /min [facility] Oxygen 97 % 97 % [facility] [place] saturation in Medical Arterial blood Center by Pulse oximetry Heart rate 90 /min 90 /min [facility] Diastolic blood 75 mm[Hg] 75 mm[Hg] [facility] pressure Medical Center Systolic blood 145 mm[Hg] 145 mm[Hg] [facility] Body weight 68.113568 kg 68.935288 kg [facility]asured [facility] Body temperature 36.907752 Kaylie 36.278942 Kaylie [facility] Respiratory rate 18 /min 18 /min [facility] Oxygen 100 % 100 % [facility] saturation in Medical Arterial blood Center by Pulse oximetry Heart rate 88 /min 88 /min [facility] Body height 170.733093 cm 170.745851 cm [facility] Diastolic blood 74 mm[Hg] 74 mm[Hg] [facility] pressure Medical Center Systolic blood 130 mm[Hg] 130 mm[Hg] [facility] Body mass index 23.4 kg/m2 23.4 kg/m2 [facility] (BMI) [Ratio] [facility] Center Body temperature 37.691844 Kaylie 37.329571 Kaylie [facility] Respiratory rate 18 /min 18 /min [facility] Oxygen 93 % 93 % [facility] saturation in Medical Arterial blood Center by Pulse oximetry Heart rate 97 /min 97 /min [facility] Diastolic blood 81 mm[Hg] 81 mm[Hg] [facility] pressure Medical Center Systolic blood 129 mm[Hg] 129 mm[Hg] [facility] Body temperature 37.360729 Kaylie 37.458696 Kaylie [facility] Respiratory rate 19 /min 19 /min [facility] Oxygen 93 % 93 % [facility] saturation in Medical Arterial blood Center by Pulse oximetry Heart rate 96 /min 96 /min [facility] Diastolic blood 76 mm[Hg] 76 mm[Hg] [facility] pressure Medical Center Systolic blood 134 mm[Hg] 134 mm[Hg] [facility] Body temperature 37.767949 Kaylie 37.600783 Kaylie [facility] Respiratory rate 19 /min 19 /min [facility] Oxygen 93 % 93 % [facility] saturation in Medical Arterial blood Center by Pulse oximetry Heart rate 95 /min 95 /min [facility] Diastolic blood 66 mm[Hg] 66 mm[Hg] [facility] pressure Medical Center Systolic blood 154 mm[Hg] 154 mm[Hg] [facility] Body temperature 37.064043 Kaylie 37.795823 Kaylie [facility] Respiratory rate 18 /min 18 /min [facility] Oxygen 95 % 95 % [facility] saturation in Medical Arterial blood Center by Pulse oximetry Heart rate 86 /min 86 /min [facility] Diastolic blood 72 mm[Hg] 72 mm[Hg] [facility] pressure Medical Center Systolic blood 108 mm[Hg] 108 mm[Hg] [facility] Body temperature 36.680221 Kaylie 36.419081 Kaylie [facility] Respiratory rate 18 /min 18 /min [facility] Oxygen 98 % 98 % [facility] saturation in Medical Arterial blood Center by Pulse oximetry Heart rate 84 /min 84 /min [facility] Diastolic blood 80 mm[Hg] 80 mm[Hg] [facility] pressure Medical Center Systolic blood 127 mm[Hg] 127 mm[Hg] [facility] Body temperature 37.781975 Kaylie 37.923915 Kaylie [facility] Respiratory rate 16 /min 16 /min [facility] Oxygen 98 % 98 % [facility] saturation in Medical Arterial blood Center by Pulse oximetry Heart rate 84 /min 84 /min [facility] Diastolic blood 76 mm[Hg] 76 mm[Hg] [facility] pressure Medical Center Systolic blood 128 mm[Hg] 128 mm[Hg] [facility] Body temperature 37.866220 Kaylie 37.722878 Kaylie [facility] Respiratory rate 16 /min 16 /min [facility] Oxygen 98 % 98 % [facility] saturation in Medical Arterial blood Center by Pulse oximetry Heart rate 84 /min 84 /min [facility] Diastolic blood 76 mm[Hg] 76 mm[Hg] [facility] Systolic blood 128 mm[Hg] 128 mm[Hg] [facility] Body temperature 37.109866 Kaylie 37.756929 Kaylie [facility] Respiratory rate 17 /min 17 /min [facility] Oxygen 98 % 98 % [facility] saturation in Medical Arterial blood Center by Pulse oximetry Heart rate 87 /min 87 /min [facility] Diastolic blood 70 mm[Hg] 70 mm[Hg] [facility] Systolic blood 121 mm[Hg] 121 mm[Hg] [facility] Body temperature 36.576219 Kaylie 36.213592 Kaylie [facility] Respiratory rate 16 /min 16 /min [facility] Oxygen 98 % 98 % [facility] saturation in Medical Arterial blood Center by Pulse oximetry Heart rate 89 /min 89 /min [facility] Diastolic blood 75 mm[Hg] 75 mm[Hg] [facility] Systolic blood 135 mm[Hg] 135 mm[Hg] [facility] Body temperature 36.686495 Kaylie 36.700345 Kaylie [facility] Respiratory rate 17 /min 17 /min [facility] Oxygen 96 % 96 % [facility] saturation in Medical Arterial blood Center by Pulse oximetry Heart rate 95 /min 95 /min [facility] Diastolic blood 78 mm[Hg] 78 mm[Hg] [facility] Systolic blood 141 mm[Hg] 141 mm[Hg] [facility] Body temperature 37.459308 Kaylie 37.943750 Kaylie [facility] Respiratory rate 20 /min 20 /min [facility] Heart rate 98 /min 98 /min [facility] Diastolic blood 61 mm[Hg] 61 mm[Hg] [facility] Systolic blood 142 mm[Hg] 142 mm[Hg] [facility] Body temperature 36.523409 Kaylie 36.679253 Kaylie [facility] Respiratory rate 20 /min 20 /min [facility] Heart rate 80 /min 80 /min [facility] Diastolic blood 72 mm[Hg] 72 mm[Hg] [facility] Systolic blood 135 mm[Hg] 135 mm[Hg] [facility] Body temperature 36.127247 Kaylie 36.121067 Kaylie [facility] Respiratory rate 20 /min 20 /min [facility] Heart rate 91 /min 91 /min [facility] Diastolic blood 77 mm[Hg] 77 mm[Hg] [facility] Systolic blood 128 mm[Hg] 128 mm[Hg] [facility] Body temperature 36.503199 Kaylie 36.639750 Kaylie [facility] Respiratory rate 20 /min 20 /min [facility] Heart rate 102 /min 102 /min [facility] Diastolic blood 72 mm[Hg] 72 mm[Hg] [facility] Systolic blood 102 mm[Hg] 102 mm[Hg] [facility] Body weight 114.944378 kg 114.270725 kg [facility] Body height 175.804857 cm 175.013706 cm [facility] Body mass index 37.11 kg/m2 37.11 kg/m2 [facility] (BMI) [Ratio] Medical [facility] Body temperature 36.749404 Kaylie 36.751026 Kaylie [facility] Respiratory rate 20 /min 20 /min [facility] Heart rate 91 /min 91 /min [facility] Diastolic blood 71 mm[Hg] 71 mm[Hg] [facility] Systolic blood 156 mm[Hg] 156 mm[Hg] [facility] Body temperature 36.354090 Kaylie 36.178006 Kaylie [facility] Respiratory rate 20 /min 20 /min [facility] Heart rate 97 /min 97 /min [facility] Diastolic blood 88 mm[Hg] 88 mm[Hg] [facility] Systolic blood 182 mm[Hg] 182 mm[Hg] [facility] Body weight 114.043013 kg 114.524332 kg [facility] Body height 177.771806 cm 177.111231 cm [facility] Body temperature 37.477202 Kaylie 37.080821 Kaylie [facility] Respiratory rate 18 /min 18 /min [facility] Heart rate 113 /min 113 /min [facility] Diastolic blood 102 mm[Hg] 102 mm[Hg] [facility] Systolic blood 156 mm[Hg] 156 mm[Hg] [facility] Oxygen 96 % 96 % [facility] saturation in Medical Arterial blood Center by Pulse oximetry Body temperature 37.986173 Kaylie 37.646048 Kaylie [facility] Respiratory rate 19 /min 19 /min [facility] Heart rate 107 /min 107 /min [facility] Diastolic blood 90 mm[Hg] 90 mm[Hg] [facility] Systolic blood 154 mm[Hg] 154 mm[Hg] [facility] Oxygen 96 % 96 % [place] saturation in Medical Arterial blood Center by Pulse oximetry Body temperature 37.084070 Kaylie 37.929598 Kaylie [facility] Respiratory rate 19 /min 19 /min [facility] Heart rate 104 /min 104 /min [facility] Diastolic blood 92 mm[Hg] 92 mm[Hg] [facility] Systolic blood 148 mm[Hg] 148 mm[Hg] [facility] Oxygen 98 % 98 % [place] saturation in Medical Arterial blood Center by Pulse oximetry Body temperature 36.476551 Kaylie 36.470230 Kaylie [facility] Respiratory rate 17 /min 17 /min [facility] Heart rate 75 /min 75 /min [facility] Diastolic blood 78 mm[Hg] 78 mm[Hg] [facility] pressure Medical Center Systolic blood 125 mm[Hg] 125 mm[Hg] [facility] Oxygen 97 % 97 % [facility] saturation in Medical Arterial blood Center by Pulse oximetry Oxygen 98 % 98 % [facility] saturation in Medical Arterial blood Center by Pulse oximetry Body temperature 36.589809 Kaylie 36.780386 Kaylie [facility] Respiratory rate 17 /min 17 /min [facility] Oxygen 97 % 97 % [facility] saturation in Medical Arterial blood Center by Pulse oximetry Heart rate 75 /min 75 /min [facility] Diastolic blood 81 mm[Hg] 81 mm[Hg] [facility] pressure Medical Center Systolic blood 139 mm[Hg] 139 mm[Hg] [facility] Body temperature 36.135866 Kaylie 36.472251 Kaylie [facility] Respiratory rate 17 /min 17 /min [facility] Oxygen 95 % 95 % [facility] saturation in Medical Arterial blood Center by Pulse oximetry Heart rate 70 /min 70 /min [facility] Diastolic blood 71 mm[Hg] 71 mm[Hg] [facility] Systolic blood 127 mm[Hg] 127 mm[Hg] [facility] Body temperature 36.972595 Kaylie 36.600416 Kaylie [facility] Respiratory rate 18 /min 18 /min [facility] Oxygen 97 % 97 % [facility] saturation in Medical Arterial blood Center by Pulse oximetry Heart rate 73 /min 73 /min [facility] Diastolic blood 66 mm[Hg] 66 mm[Hg] [facility] Systolic blood 139 mm[Hg] 139 mm[Hg] [facility] Respiratory rate 16 /min 16 /min [facility] Oxygen 963 % 963 % [facility] saturation in Medical Arterial blood Center by Pulse oximetry Heart rate 80 /min 80 /min [facility] Diastolic blood 80 mm[Hg] 80 mm[Hg] [facility] Systolic blood 154 mm[Hg] 154 mm[Hg] [facility] Body temperature 36.022934 Kaylie 36.492459 Kaylie [facility] Respiratory rate 19 /min 19 /min [facility] Oxygen 99 % 99 % [facility] saturation in Medical Arterial blood Center by Pulse oximetry Heart rate 81 /min 81 /min [facility] Diastolic blood 76 mm[Hg] 76 mm[Hg] [facility] pressure Medical Center Systolic blood 133 mm[Hg] 133 mm[Hg] [facility] Body temperature 36.872288 Kaylie 36.241292 Kaylie [facility] Respiratory rate 16 /min 16 /min [facility] Oxygen 95 % 95 % [facility] saturation in Medical Arterial blood Center by Pulse oximetry Heart rate 73 /min 73 /min [facility] Diastolic blood 74 mm[Hg] 74 mm[Hg] [facility] Systolic blood 138 mm[Hg] 138 mm[Hg] [facility] Body temperature 36.573358 Kaylie 36.659196 Kaylie [facility] Respiratory rate 18 /min 18 /min [facility] Oxygen 98 % 98 % [facility] saturation in Medical Arterial blood Center by Pulse oximetry Heart rate 76 /min 76 /min [facility] Diastolic blood 78 mm[Hg] 78 mm[Hg] [facility] Systolic blood 121 mm[Hg] 121 mm[Hg] [facility] Body temperature 36.742802 Kaylie 36.513738 Kaylie [facility] Respiratory rate 17 /min 17 /min [facility] Oxygen 97 % 97 % [facility] saturation in Medical Arterial blood Center by Pulse oximetry Heart rate 84 /min 84 /min [facility] Diastolic blood 74 mm[Hg] 74 mm[Hg] [facility] Systolic blood 128 mm[Hg] 128 mm[Hg] [facility] Body temperature 36.526105 Kaylie 36.311186 Kaylie [facility] Respiratory rate 18 /min 18 /min [facility] Oxygen 97 % 97 % [facility] saturation in Medical Arterial blood Center by Pulse oximetry Heart rate 88 /min 88 /min [facility] Diastolic blood 102 mm[Hg] 102 mm[Hg] [facility] Systolic blood 164 mm[Hg] 164 mm[Hg] [facility] Body temperature 36.929330 Kaylie 36.075434 Kaylie [facility] Respiratory rate 18 /min 18 /min [facility] Oxygen 98 % 98 % [facility] saturation in Medical Arterial blood Center by Pulse oximetry Heart rate 77 /min 77 /min [facility] Diastolic blood 75 mm[Hg] 75 mm[Hg] [facility] pressure Medical Center Systolic blood 136 mm[Hg] 136 mm[Hg] [facility] Body temperature 36.872653 Kaylie 36.075690 Kaylie [facility] Respiratory rate 18 /min 18 /min [facility] Oxygen 98 % 98 % [facility] saturation in Medical Arterial blood Center by Pulse oximetry Heart rate 84 /min 84 /min [facility] Diastolic blood 79 mm[Hg] 79 mm[Hg] [facility] Systolic blood 142 mm[Hg] 142 mm[Hg] [facility] Body temperature 36.320113 Kaylie 36.232409 Kaylie [facility] Respiratory rate 19 /min 19 /min [facility] Oxygen 99 % 99 % [facility] saturation in Medical Arterial blood Center by Pulse oximetry Heart rate 89 /min 89 /min [facility] Diastolic blood 87 mm[Hg] 87 mm[Hg] [facility] pressure Medical Center Systolic blood 155 mm[Hg] 155 mm[Hg] [facility] Body temperature 36.730340 Kaylie 36.430828 Kaylie [facility] Respiratory rate 18 /min 18 /min [facility] Oxygen 99 % 99 % [facility] saturation in Medical Arterial blood Center by Pulse oximetry Heart rate 100 /min 100 /min [facility] Diastolic blood 98 mm[Hg] 98 mm[Hg] [facility] Systolic blood 145 mm[Hg] 145 mm[Hg] [facility] Body temperature 37.397010 Kaylie 37.719578 Kaylie [facility] Respiratory rate 20 /min 20 /min [facility] Oxygen 95 % 95 % [facility] saturation in Medical Arterial blood Center by Pulse oximetry Heart rate 88 /min 88 /min [facility] Diastolic blood 77 mm[Hg] 77 mm[Hg] [facility] pressure Medical Center Systolic blood 135 mm[Hg] 135 mm[Hg] [facility] Body weight 79.209737 kg 79.013698 kg [facility] Body temperature 36.048670 Kaylie 36.167312 Kaylie [facility] Respiratory rate 18 /min 18 /min [facility] Oxygen 99 % 99 % [place] saturation in Medical Arterial blood Center by Pulse oximetry Heart rate 78 /min 78 /min [facility] Body height 172.030758 cm 172.281498 cm [facility] Diastolic blood 70 mm[Hg] 70 mm[Hg] [facility] pressure Medical Center Systolic blood 130 mm[Hg] 130 mm[Hg] [facility] Body mass index 26.6 kg/m2 26.6 kg/m2 [facility] (BMI) [Ratio] Medical Center Body temperature 37.658563 Kaylie 37.747376 Kaylie [facility] Respiratory rate 18 /min 18 /min [facility] Oxygen 98 % 98 % [place] saturation in Medical Arterial blood Center by Pulse oximetry Heart rate 103 /min 103 /min [facility] Diastolic blood 88 mm[Hg] 88 mm[Hg] [facility] Systolic blood 142 mm[Hg] 142 mm[Hg] [facility] Body temperature 36.630879 Kaylie 36.241047 Kaylie [facility] Respiratory rate 18 /min 18 /min [facility] Oxygen 97 % 97 % [facility] saturation in Medical Arterial blood Center by Pulse oximetry Heart rate 77 /min 77 /min [facility] Diastolic blood 66 mm[Hg] 66 mm[Hg] [facility] Systolic blood 140 mm[Hg] 140 mm[Hg] [facility] Body temperature 36.155569 Kaylie 36.906972 Kaylie [facility] Respiratory rate 18 /min 18 /min [facility] Oxygen 96 % 96 % [place] saturation in Medical Arterial blood Center by Pulse oximetry Heart rate 88 /min 88 /min [facility] Diastolic blood 75 mm[Hg] 75 mm[Hg] [facility] Systolic blood 119 mm[Hg] 119 mm[Hg] [facility] Body temperature 36.231625 Kaylie 36.891583 Kaylie [facility] Respiratory rate 19 /min 19 /min [facility] Oxygen 97 % 97 % [facility] saturation in Medical Arterial blood Center by Pulse oximetry Heart rate 101 /min 101 /min [facility] Diastolic blood 67 mm[Hg] 67 mm[Hg] [facility] pressure Medical Center Systolic blood 108 mm[Hg] 108 mm[Hg] [facility] Body temperature 36.524563 Kaylie 36.536713 Kaylie [facility] Respiratory rate 17 /min 17 /min [facility] Oxygen 94 % 94 % [facility] saturation in Medical Arterial blood Center by Pulse oximetry Heart rate 87 /min 87 /min [facility] Diastolic blood 81 mm[Hg] 81 mm[Hg] [facility] pressure Medical Center Systolic blood 120 mm[Hg] 120 mm[Hg] [facility] Body temperature 36.015915 Kaylie 36.812068 Kaylie [facility] Respiratory rate 17 /min 17 /min [facility] Oxygen 97 % 97 % [facility] saturation in Medical Arterial blood Center by Pulse oximetry Heart rate 70 /min 70 /min [facility] Diastolic blood 66 mm[Hg] 66 mm[Hg] [facility] Systolic blood 139 mm[Hg] 139 mm[Hg] [facility] Body temperature 36.056270 Kaylie 36.622354 Kaylie [facility] Respiratory rate 17 /min 17 /min [facility] Oxygen 95 % 95 % [facility] saturation in Medical Arterial blood Center by Pulse oximetry Heart rate 69 /min 69 /min [facility] Diastolic blood 76 mm[Hg] 76 mm[Hg] [facility] pressure Medical Center Systolic blood 122 mm[Hg] 122 mm[Hg] [facility] Body temperature 36.883061 Kaylie 36.195143 Kaylie [facility] Respiratory rate 17 /min 17 /min [facility] Oxygen 98 % 98 % [facility] saturation in Medical Arterial blood Center by Pulse oximetry Heart rate 73 /min 73 /min [facility] Diastolic blood 69 mm[Hg] 69 mm[Hg] [facility] pressure Medical Center Systolic blood 133 mm[Hg] 133 mm[Hg] [facility] Diastolic blood 84 mmHg 84 mmHg [facility] Systolic blood 150 mmHg 150 mmHg [facility] Respiratory rate 18 bpm 18 bpm [facility] Heart rate 86 bpm 86 bpm [facility] Body temperature 97.8 Fahrenheit 97.8 Fahrenh t [facility] Diastolic blood 79 mmHg 79 mmHg [facility] Systolic blood 135 mmHg 135 mmHg [facility] Respiratory rate 18 bpm 18 bpm [facility] Heart rate 92 bpm 92 bpm [facility] Body temperature 97.5 Fahrenheit 97.5 Fahrenhei t [facility] Diastolic blood 77 mmHg 77 mmHg [facility] Systolic blood 124 mmHg 124 mmHg [facility] Respiratory rate 18 bpm 18 bpm [facility] Heart rate 90 bpm 90 bpm [facility] Body temperature 98.0 Fahrenheit 98.0 Fahrenh t [facility] Diastolic blood 89 mmHg 89 mmHg [facility] Systolic blood 149 mmHg 149 mmHg [facility] Respiratory rate 18 bpm 18 bpm [facility] Heart rate 105 bpm 105 bpm [facility] Body temperature 98.2 Fahrenheit 98.2 Fahrenhei t [facility] Body temperature 97.3 Fahrenheit 97.3 Fahrenh t [facility] Body weight 233 lbs 233 lbs [facility] Diastolic blood 87 mmHg 87 mmHg [facility] Systolic blood 140 mmHg 140 mmHg [facility] Respiratory rate 18 bpm 18 bpm [facility] Heart rate 103 bpm 103 bpm [facility] Body temperature 98.1 Fahrenheit 98.1 Fahrenh t [facility] Body temperature 97.4 Fahrenheit 97.4 Fahrenh t [facility] Body temperature 36.088392 Kaylie 36.681762 Kaylie [facility] Respiratory rate 17 /min 17 /min [facility] Oxygen 95 % 95 % [facility] saturation in Medical Arterial blood Center by Pulse oximetry Heart rate 79 /min 79 /min [facility] Diastolic blood 71 mm[Hg] 71 mm[Hg] [facility] Systolic blood 122 mm[Hg] 122 mm[Hg] [facility] Body temperature 36.320939 Kaylie 36.833675 Kaylie [facility] Respiratory rate 17 /min 17 /min [facility] Oxygen 98 % 98 % [facility] saturation in Medical Arterial blood Center by Pulse oximetry Heart rate 79 /min 79 /min [facility] Diastolic blood 69 mm[Hg] 69 mm[Hg] [facility] pressure Medical Center Systolic blood 133 mm[Hg] 133 mm[Hg] [facility] Body temperature 37.306204 Kaylie 37.799672 Kaylie [facility] Respiratory rate 16 /min 16 /min [facility] Oxygen 97 % 97 % [facility] saturation in Medical Arterial blood Center by Pulse oximetry Heart rate 96 /min 96 /min [facility] Diastolic blood 91 mm[Hg] 91 mm[Hg] [facility] Systolic blood 154 mm[Hg] 154 mm[Hg] [facility] Body temperature 37.873736 Kaylie 37.403805 Kaylie [facility] Respiratory rate 18 /min 18 /min [facility] Heart rate 102 /min 102 /min [facility] Diastolic blood 107 mm[Hg] 107 mm[Hg] [facility] [facility] Systolic blood 162 mm[Hg] 162 mm[Hg] [facility] Body temperature 36.029040 Kaylie 36.637192 Kaylie [facility] Respiratory rate 18 /min 18 /min [facility] Oxygen 97 % 97 % [facility] saturation in Medical Arterial blood Center by Pulse oximetry Heart rate 101 /min 101 /min [facility] Diastolic blood 95 mm[Hg] 95 mm[Hg] [facility] Systolic blood 159 mm[Hg] 159 mm[Hg] [facility] Body temperature 36.673935 Kaylie 36.054422 Kaylie [facility] Respiratory rate 18 /min 18 /min [facility] Oxygen 96 % 96 % [facility] saturation in Medical Arterial blood Center by Pulse oximetry Heart rate 93 /min 93 /min [facility] Diastolic blood 61 mm[Hg] 61 mm[Hg] [facility] Systolic blood 111 mm[Hg] 111 mm[Hg] [facility] Body temperature 36.575970 Kaylie 36.289911 Kaylie [facility] Respiratory rate 16 /min 16 /min [facility] Oxygen 98 % 98 % [facility] saturation in Medical Arterial blood Center by Pulse oximetry Heart rate 78 /min 78 /min [facility] Diastolic blood 73 mm[Hg] 73 mm[Hg] [facility] pressure Medical Center Systolic blood 124 mm[Hg] 124 mm[Hg] [facility] Body temperature 36.211338 Kaylie 36.437425 Kaylie [facility] Respiratory rate 16 /min 16 /min [facility] Oxygen 96 % 96 % [facility] saturation in Medical Arterial blood Center by Pulse oximetry Heart rate 94 /min 94 /min [facility] Diastolic blood 71 mm[Hg] 71 mm[Hg] [facility] pressure Medical Center Systolic blood 131 mm[Hg] 131 mm[Hg] [facility] Body temperature 36.840561 Kaylie 36.667017 Kaylie [facility] Respiratory rate 15 /min 15 /min [facility] Oxygen 98 % 98 % [facility] saturation in Medical Arterial blood Center by Pulse oximetry Heart rate 100 /min 100 /min [facility] Diastolic blood 73 mm[Hg] 73 mm[Hg] [facility] pressure Medical Center Systolic blood 129 mm[Hg] 129 mm[Hg] [facility] Body weight 77.497378 kg 77.902558 kg [facility] Body temperature 36.705252 Kaylie 36.097849 Kaylie [facility] Respiratory rate 18 /min 18 /min [facility] Oxygen 96 % 96 % [facility] saturation in Medical Arterial blood Center by Pulse oximetry Heart rate 99 /min 99 /min [facility] Body height 167.757719 cm 167.251592 cm [facility] Diastolic blood 74 mm[Hg] 74 mm[Hg] [facility] pressure [facility] Center Systolic blood 128 mm[Hg] 128 mm[Hg] [facility] Body mass index 27.4 kg/m2 27.4 kg/m2 [facility] (BMI) [Ratio] [facility] Center Body temperature 36.750116 Kaylie 36.106746 Kaylie [facility] Respiratory rate 17 /min 17 /min [facility] Oxygen 99 % 99 % [facility] saturation in Medical Arterial blood Center by Pulse oximetry Heart rate 81 /min 81 /min [facility] Diastolic blood 69 mm[Hg] 69 mm[Hg] [facility] Systolic blood 118 mm[Hg] 118 mm[Hg] [facility] Body weight 113.996537 kg 113.577356 kg [facility] Body temperature 37.075748 Kaylie 37.333640 Kaylie [facility] Respiratory rate 19 /min 19 /min [facility] Oxygen 94 % 94 % [facility] saturation in Medical Arterial blood Center by Pulse oximetry Heart rate 102 /min 102 /min [facility] Body height 172.014000 cm 172.325486 cm [facility] Diastolic blood 78 mm[Hg] 78 mm[Hg] [facility] Systolic blood 138 mm[Hg] 138 mm[Hg] [facility] Body mass index 38.0 kg/m2 38.0 kg/m2 [facility] (BMI) [Ratio] Medical Center Body temperature 36.191925 Kaylie 36.420260 Kaylie [facility] Respiratory rate 18 /min 18 /min [facility] Oxygen 98 % 98 % [facility] saturation in Medical Arterial blood Center by Pulse oximetry Heart rate 104 /min 104 /min [facility] Diastolic blood 50 mm[Hg] 50 mm[Hg] [facility] Systolic blood 91 mm[Hg] 91 mm[Hg] [facility] Body temperature 36.422086 Kaylie 36.580021 Kaylie [facility] Respiratory rate 18 /min 18 /min [facility] Oxygen 91 % 91 % [facility] saturation in Medical Arterial blood Center by Pulse oximetry Heart rate 97 /min 97 /min [facility] Diastolic blood 75 mm[Hg] 75 mm[Hg] [facility] Systolic blood 126 mm[Hg] 126 mm[Hg] [facility] Body temperature 36.458528 Kaylie 36.904395 Kaylie [facility] Respiratory rate 18 /min 18 /min [facility] Oxygen 100 % 100 % [facility] saturation in Medical Arterial blood Center by Pulse oximetry Heart rate 95 /min 95 /min [facility] Diastolic blood 57 mm[Hg] 57 mm[Hg] [facility] Systolic blood 106 mm[Hg] 106 mm[Hg] [facility] Body weight 83.926096 kg 83.610226 kg [facility] Body temperature 36.119101 Kaylie 36.339833 Kaylie [facility] Respiratory rate 19 /min 19 /min [facility] Oxygen 97 % 97 % [facility] saturation in Medical Arterial blood Center by Pulse oximetry Heart rate 95 /min 95 /min [facility] Body height 175.668593 cm 175.437774 cm [facility] Diastolic blood 58 mm[Hg] 58 mm[Hg] [facility] pressure Medical Center Systolic blood 107 mm[Hg] 107 mm[Hg] [facility] Body mass index 27.3 kg/m2 27.3 kg/m2 [facility] (BMI) [Ratio] Medical Center Body temperature 36.411741 Kaylie 36.973054 Kaylie [facility] Respiratory rate 16 /min 16 /min [facility] Oxygen 98 % 98 % [facility] saturation in Medical Arterial blood Center by Pulse oximetry Heart rate 84 /min 84 /min [facility] Diastolic blood 74 mm[Hg] 74 mm[Hg] [facility] Systolic blood 141 mm[Hg] 141 mm[Hg] [facility] Body temperature 37.697298 Kaylie 37.352334 Kaylie [facility] Respiratory rate 18 /min 18 /min [facility] Oxygen 96 % 96 % [facility] saturation in Medical Arterial blood Center by Pulse oximetry Heart rate 90 /min 90 /min [facility] Diastolic blood 60 mm[Hg] 60 mm[Hg] [facility] Systolic blood 103 mm[Hg] 103 mm[Hg] [facility] Body temperature 37.079580 Kaylie 37.829617 Kaylie [facility] Respiratory rate 17 /min 17 /min [facility] Oxygen 99 % 99 % [facility] saturation in Medical Arterial blood Center by Pulse oximetry Heart rate 88 /min 88 /min [facility] Diastolic blood 86 mm[Hg] 86 mm[Hg] [facility] Systolic blood 138 mm[Hg] 138 mm[Hg] [facility] Body temperature 36.885513 Kaylie 36.340814 Kaylie [facility] Respiratory rate 16 /min 16 /min [facility] Oxygen 98 % 98 % [facility] saturation in Medical Arterial blood Center by Pulse oximetry Heart rate 78 /min 78 /min [facility] Diastolic blood 91 mm[Hg] 91 mm[Hg] [facility] Systolic blood 145 mm[Hg] 145 mm[Hg] [facility] Body temperature 36.316615 Kaylie 36.904771 Kaylie [facility] Respiratory rate 16 /min 16 /min [facility] Oxygen 98 % 98 % [facility] saturation in Medical Arterial blood Center by Pulse oximetry Heart rate 75 /min 75 /min [facility] Diastolic blood 84 mm[Hg] 84 mm[Hg] [facility] Systolic blood 151 mm[Hg] 151 mm[Hg] [facility] Body temperature 36.591278 Kaylie 36.898851 Kaylie [facility] Respiratory rate 16 /min 16 /min [facility] Oxygen 98 % 98 % [facility] saturation in Medical Arterial blood Center by Pulse oximetry Heart rate 74 /min 74 /min [facility] Diastolic blood 87 mm[Hg] 87 mm[Hg] [facility] Systolic blood 148 mm[Hg] 148 mm[Hg] [facility] Body temperature 36.964192 Kaylie 36.889619 Kaylie [facility] Respiratory rate 16 /min 16 /min [facility] Oxygen 96 % 96 % [facility] saturation in Medical Arterial blood Center by Pulse oximetry Heart rate 79 /min 79 /min [facility] Diastolic blood 88 mm[Hg] 88 mm[Hg] [facility] Systolic blood 151 mm[Hg] 151 mm[Hg] [facility] Body temperature 37.269867 Kaylie 37.237136 Kaylie [facility] Respiratory rate 16 /min 16 /min [facility] Oxygen 98 % 98 % [facility] saturation in Medical Arterial blood Center by Pulse oximetry Heart rate 86 /min 86 /min [facility] Diastolic blood 94 mm[Hg] 94 mm[Hg] [facility] Systolic blood 145 mm[Hg] 145 mm[Hg] [facility] Body temperature 36.674695 Kaylie 36.227405 Kaylie [facility] Respiratory rate 19 /min 19 /min [facility] Oxygen 97 % 97 % [facility] saturation in Medical Arterial blood Center by Pulse oximetry Heart rate 92 /min 92 /min [facility] Diastolic blood 88 mm[Hg] 88 mm[Hg] [facility] pressure Medical Center Systolic blood 148 mm[Hg] 148 mm[Hg] [facility] Body temperature 36.001625 Kaylie 36.047715 Kaylie [facility] Respiratory rate 17 /min 17 /min [facility] Oxygen 97 % 97 % [facility] saturation in Medical Arterial blood Center by Pulse oximetry Heart rate 71 /min 71 /min [facility] Diastolic blood 87 mm[Hg] 87 mm[Hg] [facility] pressure Medical Center Systolic blood 139 mm[Hg] 139 mm[Hg] [facility] Body temperature 36.506237 Kaylie 36.202433 Kaylie [facility] Respiratory rate 18 /min 18 /min [facility] Oxygen 97 % 97 % [facility] saturation in Medical Arterial blood Center by Pulse oximetry Heart rate 84 /min 84 /min [facility] Diastolic blood 77 mm[Hg] 77 mm[Hg] [facility] pressure Medical Center Systolic blood 132 mm[Hg] 132 mm[Hg] [facility] Diastolic blood 68 mm[Hg] 68 mm[Hg] [facility] pressure Medical Center Systolic blood 119 mm[Hg] 119 mm[Hg] [facility] Body temperature 36.357871 Kaylie 36.345117 Kaylie [facility] Respiratory rate 17 /min 17 /min [facility] Oxygen 98 % 98 % [facility] saturation in Medical Arterial blood Center by Pulse oximetry Heart rate 88 /min 88 /min [facility] Body temperature 36.260514 Kaylie 36.928020 Kaylie [facility] Respiratory rate 17 /min 17 /min [facility] Oxygen 97 % 97 % [facility] saturation in Medical Arterial blood Center by Pulse oximetry Heart rate 81 /min 81 /min [facility] Diastolic blood 72 mm[Hg] 72 mm[Hg] [facility] Systolic blood 131 mm[Hg] 131 mm[Hg] [facility] Body weight 90.846570 kg 90.000385 kg [facility] Body temperature 36.035737 Kaylie 36.988982 Kaylie [facility] Respiratory rate 16 /min 16 /min [facility] Oxygen 9 % 9 % [facility] saturation in Medical Arterial blood Center by Pulse oximetry Heart rate 80 /min 80 /min [facility] Body height 177.570219 cm 177.559700 cm [facility] Diastolic blood 95 mm[Hg] 95 mm[Hg] [facility] Systolic blood 152 mm[Hg] 152 mm[Hg] [facility] Body mass index 28.6 kg/m2 28.6 kg/m2 [facility] (BMI) [Ratio] Medical Center Body temperature 36.437937 Kaylie 36.060103 Kaylie [facility] Respiratory rate 18 /min 18 /min [facility] Oxygen 100 % 100 % [facility] saturation in Medical Arterial blood Center by Pulse oximetry Heart rate 81 /min 81 /min [facility] Diastolic blood 70 mm[Hg] 70 mm[Hg] [facility] Systolic blood 119 mm[Hg] 119 mm[Hg] [facility] Body temperature 36.030267 Kaylie 36.174990 Kaylie [facility] Respiratory rate 18 /min 18 /min [facility] Oxygen 97 % 97 % [facility] saturation in Medical Arterial blood Center by Pulse oximetry Heart rate 86 /min 86 /min [facility] Diastolic blood 76 mm[Hg] 76 mm[Hg] [facility] Systolic blood 119 mm[Hg] 119 mm[Hg] [facility] Body temperature 36.059663 Kaylie 36.296470 Kaylie [facility] Respiratory rate 18 /min 18 /min [facility] Oxygen 97 % 97 % [facility] saturation in Medical Arterial blood Center by Pulse oximetry Heart rate 94 /min 94 /min [facility] Diastolic blood 87 mm[Hg] 87 mm[Hg] [facility] Systolic blood 140 mm[Hg] 140 mm[Hg] [facility] Body temperature 36.084680 Kaylie 36.458951 Kaylie [facility] Respiratory rate 19 /min 19 /min [facility] Oxygen 100 % 100 % [facility] saturation in Medical Arterial blood Center by Pulse oximetry Heart rate 83 /min 83 /min [facility] Diastolic blood 71 mm[Hg] 71 mm[Hg] [facility] pressure [facility] Center Systolic blood 126 mm[Hg] 126 mm[Hg] [facility] Body temperature 36.430784 Kaylie 36.084109 Kaylie [facility] Respiratory rate 18 /min 18 /min [facility] Oxygen 99 % 99 % [facility] saturation in Medical Arterial blood Center by Pulse oximetry Heart rate 79 /min 79 /min [facility] Diastolic blood 77 mm[Hg] 77 mm[Hg] [facility] Systolic blood 126 mm[Hg] 126 mm[Hg] [facility] Body weight 125.932829 kg 125.565043 kg [facility] Body temperature 36.691219 Kaylie 36.009902 Kaylie [facility] Respiratory rate 18 /min 18 /min [facility] Oxygen 98 % 98 % [facility] saturation in Medical Arterial blood Center by Pulse oximetry Heart rate 98 /min 98 /min [facility] Body height 177.041442 cm 177.964261 cm [facility] Diastolic blood 78 mm[Hg] 78 mm[Hg] [facility] pressure [facility] Center Systolic blood 110 mm[Hg] 110 mm[Hg] [facility] Body mass index 39.5 kg/m2 39.5 kg/m2 [facility] (BMI) [Ratio] Medical Center Body temperature 36.734528 Kaylie 36.136090 Kaylie [facility] Respiratory rate 17 /min 17 /min [facility] Oxygen 96 % 96 % [facility] [place] saturation in Medical Arterial blood Center by Pulse oximetry Heart rate 88 /min 88 /min [facility] Diastolic blood 75 mm[Hg] 75 mm[Hg] [facility] pressure [facility] Center Systolic blood 104 mm[Hg] 104 mm[Hg] [facility] Body weight 110.594363 kg 110.504969 kg [facility] Body temperature 36.743826 Kaylie 36.290159 Kaylie [facility] Respiratory rate 18 /min 18 /min [facility] Oxygen 98 % 98 % [facility] saturation in Medical Arterial blood Center by Pulse oximetry Heart rate 78 /min 78 /min [facility] Body height 187.155718 cm 187.960900 cm [facility] Diastolic blood 78 mm[Hg] 78 mm[Hg] [facility] pressure [facility] Center Systolic blood 148 mm[Hg] 148 mm[Hg] [facility] Body mass index 31.1 kg/m2 31.1 kg/m2 [facility] (BMI) [Ratio] Medical Center Body temperature 36.094925 Kaylie 36.722360 Kaylie [facility] Respiratory rate 17 /min 17 /min [facility] Oxygen 98 % 98 % [facility] saturation in Medical Arterial blood Center by Pulse oximetry Heart rate 75 /min 75 /min [facility] Diastolic blood 68 mm[Hg] 68 mm[Hg] [facility] Systolic blood 129 mm[Hg] 129 mm[Hg] [facility] Oxygen 98 % 98 % [facility] [place] saturation in Medical Arterial blood Center by Pulse oximetry Heart rate 75 /min 75 /min [facility] Diastolic blood 68 mm[Hg] 68 mm[Hg] [facility] Systolic blood 133 mm[Hg] 133 mm[Hg] [facility] Body temperature 36.300393 Kaylie 36.365170 Kaylie [facility] Respiratory rate 17 /min 17 /min [facility] Body temperature 36.232843 Kaylie 36.391296 Kaylie [facility] Respiratory rate 17 /min 17 /min [facility] Oxygen 98 % 98 % [facility] saturation in Medical Arterial blood Center by Pulse oximetry Heart rate 82 /min 82 /min [facility] Diastolic blood 87 mm[Hg] 87 mm[Hg] [facility] Systolic blood 142 mm[Hg] 142 mm[Hg] [facility] Body temperature 36.514078 Kaylie 36.164600 Kaylie [facility] Oxygen 97 % 97 % [facility] saturation in Medical Arterial blood Center by Pulse oximetry Heart rate 87 /min 87 /min [facility] Diastolic blood 81 mm[Hg] 81 mm[Hg] [facility] pressure [facility] Center Systolic blood 150 mm[Hg] 150 mm[Hg] [facility] Body temperature 37.259956 Kaylie 37.691407 Akylie [facility] Respiratory rate 19 /min 19 /min [facility] Oxygen 96 % 96 % [facility] saturation in Medical Arterial blood Center by Pulse oximetry Heart rate 89 /min 89 /min [facility] Diastolic blood 91 mm[Hg] 91 mm[Hg] [facility] pressure [facility] Center Systolic blood 158 mm[Hg] 158 mm[Hg] [facility] Body weight 104.571822 kg 104.406934 kg [facility] Body temperature 37.314694 Kaylie 37.551398 Kaylie [facility] Respiratory rate 17 /min 17 /min [facility] Oxygen 96 % 96 % [place] saturation in Medical Arterial blood Center by Pulse oximetry Heart rate 92 /min 92 /min [facility] Body height 177.855598 cm 177.770049 cm [facility] Diastolic blood 101 mm[Hg] 101 mm[Hg] [facility] pressure [facility] Center Systolic blood 152 mm[Hg] 152 mm[Hg] [facility] Body mass index 33.0 kg/m2 33.0 kg/m2 [facility] (BMI) [Ratio] Medical Center Body weight 110.229060 kg 110.147161 kg [facility] Body temperature 36.551309 Kaylie 36.999960 Kaylie [facility] Respiratory rate 18 /min 18 /min [facility] Oxygen 98 % 98 % [place] saturation in Medical Arterial blood Center by Pulse oximetry Heart rate 78 /min 78 /min [facility] Body height 185.960946 cm 185.435168 cm [facility] Diastolic blood 78 mm[Hg] 78 mm[Hg] [facility] pressure [facility] Center Systolic blood 142 mm[Hg] 142 mm[Hg] [facility] Body mass index 31.9 kg/m2 31.9 kg/m2 [facility] (BMI) [Ratio] Medical Center Body temperature 36.487799 Kaylie 36.695662 Kaylie [facility] Respiratory rate 18 /min 18 /min [facility] Oxygen 95 % 95 % [place] saturation in Medical Arterial blood Center by Pulse oximetry Heart rate 91 /min 91 /min [facility] Diastolic blood 74 mm[Hg] 74 mm[Hg] [facility] pressure [facility] Center Systolic blood 144 mm[Hg] 144 mm[Hg] [facility] Body temperature 37.355249 Kaylie 37.397420 Kaylie [facility] Respiratory rate 20 /min 20 /min [facility] Oxygen 96 % 96 % [place] saturation in Medical Arterial blood Center by Pulse oximetry Heart rate 89 /min 89 /min [facility] Diastolic blood 79 mm[Hg] 79 mm[Hg] [facility] pressure [facility] Center Systolic blood 140 mm[Hg] 140 mm[Hg] [facility] Body weight 90.128771 kg 90.141588 kg [facility] Body temperature 36.649015 Kaylie 36.701412 Kay[facility] Respiratory rate 18 /min 18 /min [facility] Oxygen 99 % 99 % [place] saturation in Medical Arterial blood Center by Pulse oximetry Heart rate 97 /min 97 /min [facility] Body height 177.784536 cm 177.902209 [facility] Diastolic blood 86 mm[Hg] 86 mm[Hg] [facility] pressure [facility] Center Systolic blood 157 mm[Hg] 157 mm[Hg] [facility] Body mass index 28.6 kg/m2 28.6 kg/m2 [facility] (BMI) [Ratio] Medical Center Body temperature 36.289202 Kaylie 36.641415 Kaylie [facility] Respiratory rate 19 /min 19 /min [facility] Oxygen 97 % 97 % [place] saturation in Medical Arterial blood Center by Pulse oximetry Heart rate 78 /min 78 /min [facility] Diastolic blood 78 mm[Hg] 78 mm[Hg] [facility] pressure [facility] Center Systolic blood 132 mm[Hg] 132 mm[Hg] [facility] Body temperature 37.383479 Kaylie 37.810241 Kay[facility] Respiratory rate 18 /min 18 /min [facility] Oxygen 96 % 96 % [facility] saturation in Medical Arterial blood Center by Pulse oximetry Heart rate 92 /min 92 /min [facility] Diastolic blood 64 mm[Hg] 64 mm[Hg] [facility] pressure [facility] Center Systolic blood 117 mm[Hg] 117 mm[Hg] [facility] Body temperature 37.209794 Kaylie 37.665642 Kay[facility] Respiratory rate 19 /min 19 /min [facility] Oxygen 98 % 98 % [facility] saturation in Medical Arterial blood Center by Pulse oximetry Heart rate 96 /min 96 /min [facility] Diastolic blood 98 mm[Hg] 98 mm[Hg] [facility] pressure [facility] Center Systolic blood 148 mm[Hg] 148 mm[Hg] [facility] Body temperature 36.785646 Kaylie 36.166313 [facility] Respiratory rate 18 /min 18 /min [facility] Oxygen 98 % 98 % [facility] saturation in Medical Arterial blood Center by Pulse oximetry Heart rate 88 /min 88 /min [facility] Diastolic blood 78 mm[Hg] 78 mm[Hg] [facility] pressure Medical Center Systolic blood 134 mm[Hg] 134 mm[Hg] [facility] Body temperature 36.858365 Kaylie 36.468650 [facility] Respiratory rate 18 /min 18 /min [facility] Oxygen 90 % 90 % [facility] [place] saturation in Medical Arterial blood Center by Pulse oximetry Heart rate 76 /min 76 /min [facility] Diastolic blood 76 mm[Hg] 76 mm[Hg] [facility] pressure Medical Center Systolic blood 134 mm[Hg] 134 mm[Hg] [facility] Oxygen 95 % 95 % [facility] [place] saturation in Medical Arterial blood Center by Pulse oximetry Heart rate 74 /min 74 /min [facility] Diastolic blood 81 mm[Hg] 81 mm[Hg] [facility] pressure Medical Center Systolic blood 127 mm[Hg] 127 mm[Hg] [facility] Body temperature 36.143986 Kaylie 36.447237 [facility] Respiratory rate 16 /min 16 /min [facility] Body temperature 36.434737 Kaylie 36.568159 [facility] Oxygen 95 % 95 % [facility] saturation in Medical Arterial blood Center by Pulse oximetry Heart rate 79 /min 79 /min [facility] Diastolic blood 74 mm[Hg] 74 mm[Hg] [facility] pressure Medical Center Systolic blood 131 mm[Hg] 131 mm[Hg] [facility] Body temperature 37.786184 Kaylie 37.517980 [facility] Respiratory rate 16 /min 16 /min [facility] Oxygen 98 % 98 % [facility] [place] saturation in Medical Arterial blood Center by Pulse oximetry Heart rate 84 /min 84 /min [facility] Diastolic blood 74 mm[Hg] 74 mm[Hg] [facility] pressure Medical Center Systolic blood 131 mm[Hg] 131 mm[Hg] [facility] Body temperature 37.660276 Kaylie 37.792108 [facility] Respiratory rate 17 /min 17 /min [facility] Oxygen 99 % 99 % [facility] saturation in Medical Arterial blood Center by Pulse oximetry Heart rate 81 /min 81 /min [facility] Diastolic blood 78 mm[Hg] 78 mm[Hg] [facility] pressure Medical Center Systolic blood 127 mm[Hg] 127 mm[Hg] [facility] Body weight 104.901853 kg 104.713484 kg [facility] Body temperature 36.843974 Kaylie 36.356744 [facility] Respiratory rate 17 /min 17 /min [facility] Oxygen 98 % 98 % [place] saturation in Medical Arterial blood Center by Pulse oximetry Heart rate 101 /min 101 /min [facility] Body height 177.184380 cm 177.899423 cm [facility] Diastolic blood 94 mm[Hg] 94 mm[Hg] [facility] pressure Medical Center Systolic blood 163 mm[Hg] 163 mm[Hg] [facility] Body mass index 33.0 kg/m2 33.0 kg/m2 [facility] (BMI) [Ratio] Medical Center Body temperature 36.545802 Kaylie 36.073563 [facility] Respiratory rate 17 /min 17 /min [facility] Oxygen 98 % 98 % [facility] [place] saturation in Medical Arterial blood Center by Pulse oximetry Heart rate 72 /min 72 /min [facility] Diastolic blood 96 mm[Hg] 96 mm[Hg] [facility] pressure Medical Center Systolic blood 139 mm[Hg] 139 mm[Hg] [facility] Body temperature 36.618571 Kaylie 36.800871 [facility] Respiratory rate 18 /min 18 /min [facility] Oxygen 97 % 97 % [facility] [place] saturation in Medical Arterial blood Center by Pulse oximetry Heart rate 66 /min 66 /min [facility] Diastolic blood 52 mm[Hg] 52 mm[Hg] [facility] pressure Medical Center Systolic blood 100 mm[Hg] 100 mm[Hg] [facility] Body weight 77.813663 kg 77.585446 kg [facility] Body temperature 36.697048 Kaylie 36.191111 [facility] Respiratory rate 18 /min 18 /min [facility] Oxygen 97 % 97 % [facility] [place] saturation in Medical Arterial blood Center by Pulse oximetry Heart rate 82 /min 82 /min [facility] Body height 167.332695 cm 167.789085 cm [facility] Diastolic blood 80 mm[Hg] 80 mm[Hg] [facility] pressure Medical Center Systolic blood 130 mm[Hg] 130 mm[Hg] [facility] Body mass index 27.4 kg/m2 27.4 kg/m2 [facility] (BMI) [Ratio] Medical Center Body temperature 36.278925 Kaylie 36.079888 [facility] Respiratory rate 17 /min 17 /min [facility] Oxygen 99 % 99 % [facility] [place] saturation in Medical Arterial blood Center by Pulse oximetry Heart rate 88 /min 88 /min [facility] Diastolic blood 77 mm[Hg] 77 mm[Hg] [facility] pressure Medical Center Systolic blood 128 mm[Hg] 128 mm[Hg] [facility] Body temperature 37.389484 Kaylie 37.607896 [facility] Respiratory rate 18 /min 18 /min [facility] Oxygen 96 % 96 % [facility] [place] saturation in Medical Arterial blood Center by Pulse oximetry Heart rate 94 /min 94 /min [facility] Diastolic blood 80 mm[Hg] 80 mm[Hg] [facility] Systolic blood 122 mm[Hg] 122 mm[Hg] [facility] Body temperature 36.400814 Kaylie 36.578804 [facility] Respiratory rate 20 /min 20 /min [facility] Oxygen 94 % 94 % [facility] [place] saturation in Medical Arterial blood Center by Pulse oximetry Heart rate 93 /min 93 /min [facility] Diastolic blood 61 mm[Hg] 61 mm[Hg] [facility] Systolic blood 122 mm[Hg] 122 mm[Hg] [facility] Body temperature 36.828809 Kaylie 36.998362 [facility] Respiratory rate 17 /min 17 /min [facility] Oxygen 97 % 97 % [facility] [place] saturation in Medical Arterial blood Center by Pulse oximetry Heart rate 81 /min 81 /min [facility] Diastolic blood 82 mm[Hg] 82 mm[Hg] [facility] Systolic blood 142 mm[Hg] 142 mm[Hg] [facility] Body temperature 36.575073 Kaylie 36.782733 [facility] Respiratory rate 18 /min 18 /min [facility] Oxygen 98 % 98 % [facility] [place] saturation in Medical Arterial blood Center by Pulse oximetry Heart rate 86 /min 86 /min [facility] Diastolic blood 78 mm[Hg] 78 mm[Hg] [facility] Systolic blood 122 mm[Hg] 122 mm[Hg] [facility] Body temperature 36.792149 Kaylie 36.352597 [facility] Respiratory rate 17 /min 17 /min [facility] Oxygen 96 % 96 % [facility] [place] saturation in Medical Arterial blood Center by Pulse oximetry Heart rate 83 /min 83 /min [facility] Diastolic blood 71 mm[Hg] 71 mm[Hg] [facility] Systolic blood 125 mm[Hg] 125 mm[Hg] [facility] Body temperature 37.109802 Kaylie 37.546562 [facility] Respiratory rate 16 /min 16 /min [facility] Oxygen 94 % 94 % [facility] [place] saturation in Medical Arterial blood Center by Pulse oximetry Heart rate 92 /min 92 /min [facility] Diastolic blood 72 mm[Hg] 72 mm[Hg] [facility] pressure Medical Center Systolic blood 142 mm[Hg] 142 mm[Hg] [facility] Body weight 90.843897 kg 90.647053 kg [facility] Measured [facility] Body temperature 37.973158 Kaylie 37.252673 [facility] Respiratory rate 18 /min 18 /min [facility] Oxygen 92 % 92 % [place] saturation in Medical Arterial blood Center by Pulse oximetry Heart rate 96 /min 96 /min [facility] Body height 177.644944 cm 177.454889 cm [facility] Diastolic blood 70 mm[Hg] 70 mm[Hg] [facility] Systolic blood 122 mm[Hg] 122 mm[Hg] [facility] Body mass index 28.6 kg/m2 28.6 kg/m2 [facility] (BMI) [Ratio] Medical Center Body temperature 36.709077 Kaylie 36.034664 [facility] Respiratory rate 17 /min 17 /min [facility] Oxygen 98 % 98 % [facility] [place] saturation in Medical Arterial blood Center by Pulse oximetry Heart rate 75 /min 75 /min [facility] Diastolic blood 65 mm[Hg] 65 mm[Hg] [facility] Systolic blood 133 mm[Hg] 133 mm[Hg] [facility] Body temperature 36.509258 Kaylie 36.372980 [facility] Respiratory rate 18 /min 18 /min [facility] Oxygen 98 % 98 % [place] saturation in Medical Arterial blood Center by Pulse oximetry Heart rate 90 /min 90 /min [facility] Diastolic blood 72 mm[Hg] 72 mm[Hg] [facility] pressure Medical Center Systolic blood 127 mm[Hg] 127 mm[Hg] [facility] Body weight 75.960600 kg 75.942007 kg [facility] Body temperature 36.554981 Kaylie 36.893936 [facility] Respiratory rate 19 /min 19 /min [facility] Oxygen 98 % 98 % [facility] [place] saturation in Medical Arterial blood Center by Pulse oximetry Heart rate 88 /min 88 /min [facility] Body height 170.145954 cm 170.109666 cm [facility] Diastolic blood 82 mm[Hg] 82 mm[Hg] [facility] pressure Medical Center Systolic blood 140 mm[Hg] 140 mm[Hg] [facility] Body mass index 26.1 kg/m2 26.1 kg/m2 [facility] (BMI) [Ratio] Medical Center Body temperature 35.649203 Kaylie 35.083739 [facility] Respiratory rate 19 /min 19 /min [facility] Oxygen 96 % 96 % [facility] [place] saturation in Medical Arterial blood Center by Pulse oximetry Heart rate 89 /min 89 /min [facility] Diastolic blood 75 mm[Hg] 75 mm[Hg] [facility] Systolic blood 102 mm[Hg] 102 mm[Hg] [facility] Body temperature 36.347651 Kaylie 36.748171 [facility] Respiratory rate 18 /min 18 /min [facility] Oxygen 98 % 98 % [facility] [place] saturation in Medical Arterial blood Center by Pulse oximetry Heart rate 76 /min 76 /min [facility] Diastolic blood 76 mm[Hg] 76 mm[Hg] [facility] Systolic blood 112 mm[Hg] 112 mm[Hg] [facility] Body temperature 36.366575 Kaylie 36.756787 [facility] Respiratory rate 18 /min 18 /min [facility] Oxygen 98 % 98 % [facility] [place] saturation in Medical Arterial blood Center by Pulse oximetry Heart rate 76 /min 76 /min [facility] Diastolic blood 76 mm[Hg] 76 mm[Hg] [facility] Systolic blood 112 mm[Hg] 112 mm[Hg] [facility] Body temperature 37.951589 Kaylie 37.603028 [facility] Respiratory rate 18 /min 18 /min [facility] Oxygen 100 % 100 % [facility] [place] saturation in Medical Arterial blood Center by Pulse oximetry Heart rate 88 /min 88 /min [facility] Diastolic blood 78 mm[Hg] 78 mm[Hg] [facility] Systolic blood 130 mm[Hg] 130 mm[Hg] [facility] Body temperature 36.793807 Kaylie 36.921031 [facility] Respiratory rate 17 /min 17 /min [facility] Oxygen 100 % 100 % [place] saturation in Medical Arterial blood Center by Pulse oximetry Heart rate 81 /min 81 /min [facility] Diastolic blood 71 mm[Hg] 71 mm[Hg] [facility] Systolic blood 117 mm[Hg] 117 mm[Hg] [facility] Body weight 100.199633 kg 100.504003 kg [facility] Body temperature 36.092682 Kaylie 36.323014 [facility] Respiratory rate 18 /min 18 /min [facility] Oxygen 94 % 94 % [facility] saturation in Medical Arterial blood Center by Pulse oximetry Heart rate 97 /min 97 /min [facility] Body height 177.797113 cm 177.083709 cm [facility] Center Diastolic blood 72 mm[Hg] 72 mm[Hg] [facility] Systolic blood 118 mm[Hg] 118 mm[Hg] [facility] Body mass index 31.6 kg/m2 31.6 kg/m2 [facility] (BMI) [Ratio] Medical Center Body temperature 36.904447 Kaylie 36.183038 [facility] Respiratory rate 17 /min 17 /min [facility] Oxygen 95 % 95 % [facility] [place] saturation in Medical Arterial blood Center by Pulse oximetry Heart rate 94 /min 94 /min [facility] Diastolic blood 89 mm[Hg] 89 mm[Hg] [facility] Systolic blood 146 mm[Hg] 146 mm[Hg] [facility] Body temperature 36.188201 Kaylie 36.897476 [facility] Respiratory rate 18 /min 18 /min [facility] Oxygen 97 % 97 % [facility] [place] saturation in Medical Arterial blood Center by Pulse oximetry Heart rate 94 /min 94 /min [facility] Diastolic blood 85 mm[Hg] 85 mm[Hg] [facility] Systolic blood 157 mm[Hg] 157 mm[Hg] [facility] Oxygen 98 % 98 % [facility] [place] saturation in Medical Arterial blood Center by Pulse oximetry Heart rate 84 /min 84 /min [facility] Body height 175.208822 cm 175.631134 cm [facility] Diastolic blood 84 mm[Hg] 84 mm[Hg] [facility] Systolic blood 142 mm[Hg] 142 mm[Hg] [facility] Body mass index 25.6 kg/m2 25.6 kg/m2 [facility] (BMI) [Ratio] Medical Center Body weight 78.502844 kg 78.107134 kg [facility] Body temperature 36.812272 Kaylie 36.661336 [facility] Respiratory rate 19 /min 19 /min [facility] Body temperature 36.892258 Kaylie 36.331181 [facility] Respiratory rate 18 /min 18 /min [facility] Oxygen 96 % 96 % [place] saturation in Medical Arterial blood Center by Pulse oximetry Heart rate 95 /min 95 /min [facility] Diastolic blood 80 mm[Hg] 80 mm[Hg] [facility] Systolic blood 182 mm[Hg] 182 mm[Hg] [facility] Body temperature 36.823448 Kaylie 36.928958 [facility] Respiratory rate 18 /min 18 /min [facility] Oxygen 96 % 96 % [facility] [place] saturation in Medical Arterial blood Center by Pulse oximetry Heart rate 92 /min 92 /min [facility] Diastolic blood 89 mm[Hg] 89 mm[Hg] [facility] Systolic blood 139 mm[Hg] 139 mm[Hg] [facility] Body temperature 37.458969 Kaylie 37.509825 [facility] Respiratory rate 18 /min 18 /min [facility] Oxygen 98 % 98 % [facility] [place] saturation in Medical Arterial blood Center by Pulse oximetry Heart rate 90 /min 90 /min [facility] Diastolic blood 80 mm[Hg] 80 mm[Hg] [facility] Systolic blood 138 mm[Hg] 138 mm[Hg] [facility] Body temperature 37.307862 Kaylie 37.491502 [facility] Respiratory rate 18 /min 18 /min [facility] Oxygen 92 % 92 % [facility] [place] saturation in Medical Arterial blood Center by Pulse oximetry Heart rate 87 /min 87 /min [facility] Diastolic blood 66 mm[Hg] 66 mm[Hg] [facility] Systolic blood 119 mm[Hg] 119 mm[Hg] [facility] Body temperature 36.415889 Kaylie 36.094601 [facility] Respiratory rate 20 /min 20 /min [facility] Heart rate 94 /min 94 /min [facility] Diastolic blood 73 mm[Hg] 73 mm[Hg] [facility] Systolic blood 119 mm[Hg] 119 mm[Hg] [facility] Body weight 88.133007 kg 88.701842 kg [facility] Body temperature 37.367973 Kaylie 37.327169 [facility] Respiratory rate 18 /min 18 /min [facility] Oxygen 96 % 96 % [facility] [place] saturation in Medical Arterial blood Center by Pulse oximetry Heart rate 90 /min 90 /min [facility] Body height 175.590715 cm 175.005316 cm [facility] Diastolic blood 72 mm[Hg] 72 mm[Hg] [facility] Systolic blood 135 mm[Hg] 135 mm[Hg] [facility] Body mass index 28.7 kg/m2 28.7 kg/m2 [facility] (BMI) [Ratio] Medical Center Body weight 104.416562 kg 104.762560 kg [facility] Body temperature 37.985085 Kaylie 37.172208 [facility] Respiratory rate 20 /min 20 /min [facility] Oxygen 93 % 93 % [facility] [place] saturation in Medical Arterial blood Center by Pulse oximetry Heart rate 93 /min 93 /min [facility] Body height 177.793180 cm 177.893866 cm [facility] Diastolic blood 73 mm[Hg] 73 mm[Hg] [facility] Systolic blood 125 mm[Hg] 125 mm[Hg] [facility] Body mass index 33.0 kg/m2 33.0 kg/m2 [facility] (BMI) [Ratio] Medical Center Body temperature 36.968003 Kaylie 36.193429 [facility] Respiratory rate 18 /min 18 /min [facility] Oxygen 99 % 99 % [facility] [place] saturation in Medical Arterial blood Center by Pulse oximetry Heart rate 89 /min 89 /min [facility] Diastolic blood 75 mm[Hg] 75 mm[Hg] [facility] pressure Medical Center Systolic blood 132 mm[Hg] 132 mm[Hg] [facility] Body temperature 36.469123 Kaylie 36.959320 [facility] Respiratory rate 18 /min 18 /min [facility] Oxygen 99 % 99 % [facility] [place] saturation in Medical Arterial blood Center by Pulse oximetry Heart rate 78 /min 78 /min [facility] Diastolic blood 82 mm[Hg] 82 mm[Hg] [facility] pressure Medical Center Systolic blood 133 mm[Hg] 133 mm[Hg] [facility] Body weight 104.062241 kg 104.453696 kg [facility] Body temperature 36.478212 Kaylie 36.393802 [facility] Respiratory rate 20 /min 20 /min [facility] Oxygen 98 % 98 % [facility] [place] saturation in Medical Arterial blood Center by Pulse oximetry Heart rate 98 /min 98 /min [facility] Body height 177.398453 cm 177.553591 cm [facility] Diastolic blood 74 mm[Hg] 74 mm[Hg] [facility] pressure Medical Center Systolic blood 118 mm[Hg] 118 mm[Hg] [facility] Body mass index 33.0 kg/m2 33.0 kg/m2 [facility] (BMI) [Ratio] Medical Center Body temperature 36.954023 Kaylie 36.956565 [facility] Respiratory rate 18 /min 18 /min [facility] Oxygen 96 % 96 % [facility] [place] saturation in Medical Arterial blood Center by Pulse oximetry Heart rate 89 /min 89 /min [facility] Diastolic blood 87 mm[Hg] 87 mm[Hg] [facility] Systolic blood 132 mm[Hg] 132 mm[Hg] [facility] Body temperature 37.167810 Kaylie 37.674662 [facility] Respiratory rate 18 /min 18 /min [facility] Oxygen 99 % 99 % [facility] [place] saturation in Medical Arterial blood Center by Pulse oximetry Heart rate 84 /min 84 /min [facility] Diastolic blood 72 mm[Hg] 72 mm[Hg] [facility] pressure Medical Center Systolic blood 117 mm[Hg] 117 mm[Hg] [facility] Body temperature 36.755102 Kaylie 36.296465 [facility] Respiratory rate 18 /min 18 /min [facility] Oxygen 98 % 98 % [facility] [place] saturation in Medical Arterial blood Center by Pulse oximetry Heart rate 88 /min 88 /min [facility] Diastolic blood 95 mm[Hg] 95 mm[Hg] [facility] pressure Medical Center Systolic blood 135 mm[Hg] 135 mm[Hg] [facility] Body temperature 36.666765 Kaylie 36.217947 [facility] Respiratory rate 18 /min 18 /min [facility] Oxygen 96 % 96 % [facility] [place] saturation in Medical Arterial blood Center by Pulse oximetry Heart rate 98 /min 98 /min [facility] Diastolic blood 96 mm[Hg] 96 mm[Hg] [facility] pressure Medical Center Systolic blood 138 mm[Hg] 138 mm[Hg] [facility] Body temperature 36.055020 Kaylie 36.701000 [facility] Respiratory rate 18 /min 18 /min [facility] Oxygen 98 % 98 % [facility] [place] saturation in Medical Arterial blood Center by Pulse oximetry Heart rate 76 /min 76 /min [facility] Diastolic blood 76 mm[Hg] 76 mm[Hg] [facility] pressure Medical Center Systolic blood 132 mm[Hg] 132 mm[Hg] [facility] Body temperature 36.400867 Kaylie 36.053988 [facility] Respiratory rate 18 /min 18 /min [facility] Oxygen 98 % 98 % [facility] [place] saturation in Medical Arterial blood Center by Pulse oximetry Heart rate 76 /min 76 /min [facility] Diastolic blood 78 mm[Hg] 78 mm[Hg] [facility] pressure Medical Center Systolic blood 112 mm[Hg] 112 mm[Hg] [facility] Heart rate 105 /min 105 /min [facility] Body height 177.153768 cm 177.140769 cm [facility] Center Diastolic blood 65 mm[Hg] 65 mm[Hg] [facility] pressure Medical Center Systolic blood 124 mm[Hg] 124 mm[Hg] [facility] Body mass index 33.0 kg/m2 33.0 kg/m2 [facility] (BMI) [Ratio] Medical Center Body weight 104.672958 kg 104.804431 kg [facility] Body temperature 37.866928 Kaylie 37.491779 [facility] Respiratory rate 20 /min 20 /min [facility] Oxygen 92 % 92 % [place] saturation in Medical Arterial blood Center by Pulse oximetry Body temperature 37.482894 Kaylie 37.819710 [facility] Respiratory rate 18 /min 18 /min [place] [facility] O[facility] 93 % 93 % [facility] saturation in [facility] by Pulse oximetry Heart rate 101 /min 101 /min [facility] Diastolic blood 68 mm[Hg] 68 mm[Hg] [facility] Systolic blood 108 mm[Hg] 108 mm[Hg] [facility] Body weight 79.247449 kg 79.114203 kg [facility] Body temperature 37.883530 Kaylie 37.743030 Kaylie [facility] Respiratory rate 18 /min 18 /min [facility] Oxygen 95 % 95 % [facility] saturation in Medical Arterial blood Center by Pulse oximetry Heart rate 101 /min 101 /min [facility] Body height 175.510859 cm 175.020699 cm [facility] Diastolic blood 66 mm[Hg] 66 mm[Hg] [facility] pressure Medical Center Systolic blood 98 mm[Hg] 98 mm[Hg] [facility] Body mass index 25.8 kg/m2 25.8 kg/m2 [facility] (BMI) [Ratio] Medical Center Body temperature 36.908023 Kaylie 36.809088 Kaylie [facility] Respiratory rate 18 /min 18 /min [facility] Oxygen 98 % 98 % [facility] saturation in Medical Arterial blood Center by Pulse oximetry Heart rate 79 /min 79 /min [facility] Diastolic blood 69 mm[Hg] 69 mm[Hg] [facility] pressure Medical Center Systolic blood 103 mm[Hg] 103 mm[Hg] [facility] Body temperature 36.737448 Kaylie 36.338974 Kaylie [facility] Respiratory rate 18 /min 18 /min [facility] Oxygen 98 % 98 % [facility] saturation in Medical Arterial blood Center by Pulse oximetry Heart rate 78 /min 78 /min [facility] Diastolic blood 76 mm[Hg] 76 mm[Hg] [facility] Systolic blood 122 mm[Hg] 122 mm[Hg] [facility] Body temperature 36.701373 Kaylie 36.232180 Kaylie [facility] Respiratory rate 19 /min 19 /min [facility] Oxygen 96 % 96 % [facility] saturation in [facility] Arterial blood Center by Pulse oximetry Heart rate 86 /min 86 /min [facility] Diastolic blood 63 mm[Hg] 63 mm[Hg] [facility] Systolic blood 103 mm[Hg] 103 mm[Hg] [facility] Body temperature 36.166273 Kaylie 36.112220 Kaylie [facility] Respiratory rate 18 /min 18 /min [facility] Oxygen 98 % 98 % [facility] saturation in Medical Arterial blood Center by Pulse oximetry Heart rate 84 /min 84 /min [facility] Diastolic blood 67 mm[Hg] 67 mm[Hg] [facility] Systolic blood 119 mm[Hg] 119 mm[Hg] [facility] Body temperature 37.732732 Kaylie 37.672094 Kaylie [facility] Respiratory rate 18 /min 18 /min [facility] Oxygen 98 % 98 % [facility] saturation in Medical Arterial blood Center by Pulse oximetry Heart rate 91 /min 91 /min [facility] Diastolic blood 60 mm[Hg] 60 mm[Hg] [facility] Systolic blood 103 mm[Hg] 103 mm[Hg] [facility] Body temperature 36.300733 Kaylie 36.781288 Kaylie [facility] Respiratory rate 18 /min 18 /min [facility] Oxygen 98 % 98 % [place] saturation in Medical Arterial blood Center by Pulse oximetry Heart rate 76 /min 76 /min [facility] Diastolic blood 76 mm[Hg] 76 mm[Hg] [facility] pressure Medical Center Systolic blood 124 mm[Hg] 124 mm[Hg] [facility] Body temperature 36.873441 Kaylie 36.929694 Kaylie [facility] Respiratory rate 18 /min 18 /min [facility] Oxygen 98 % 98 % [place] saturation in Medical Arterial blood Center by Pulse oximetry Heart rate 76 /min 76 /min [facility] Diastolic blood 76 mm[Hg] 76 mm[Hg] [facility] pressure Medical Center Systolic blood 124 mm[Hg] 124 mm[Hg] [facility] Body weight 104.043095 kg 104.720430 kg [facility] Body temperature 36.975637 Kaylie 36.933930 Kaylie [facility] Respiratory rate 18 /min 18 /min [facility] Oxygen 96 % 96 % [facility] saturation in Medical Arterial blood Center by Pulse oximetry Heart rate 90 /min 90 /min [facility] Body height 177.171888 cm 177.630638 cm [facility] Diastolic blood 76 mm[Hg] 76 mm[Hg] [facility] pressure Medical Center Systolic blood 116 mm[Hg] 116 mm[Hg] [facility] Body mass index 33.0 kg/m2 33.0 kg/m2 [facility] (BMI) [Ratio] Medical Center Body temperature 36.771805 Kaylie 36.373623 Kaylie [facility] Respiratory rate 18 /min 18 /min [facility] Heart rate 85 /min 85 /min [facility] Diastolic blood 82 mm[Hg] 82 mm[Hg] [facility] pressure Medical Center Systolic blood 141 mm[Hg] 141 mm[Hg] [facility] Body temperature 36.466935 Kaylie 36.519258 Kaylie [facility] Respiratory rate 18 /min 18 /min [facility] Heart rate 84 /min 84 /min [facility] Diastolic blood 81 mm[Hg] 81 mm[Hg] [facility] Systolic blood 139 mm[Hg] 139 mm[Hg] [facility] Body weight 95.929687 kg 95.313997 kg [facility] Body temperature 36.659604 Kaylie 36.901318 Kaylie [facility] Respiratory rate 17 /min 17 /min [facility] Oxygen 99 % 99 % [facility] saturation in [facility] Ar[facility] blood Center by Pulse oximetry Heart rate 86 /min 86 /min [facility] Body height 177.023733 cm 177.184953 cm [facility] Diastolic blood 87 mm[Hg] 87 mm[Hg] [facility] Systolic blood 137 mm[Hg] 137 mm[Hg] [facility] Body mass index 30.1 kg/m2 30.1 kg/m2 [facility] (BMI) [Ratio] Medical Center Body temperature 37.226479 Kaylie 37.923680 Kaylie [facility] Respiratory rate 18 /min 18 /min [facility] Oxygen 94 % 94 % [facility] saturation in [facility] Arterial blood Center by Pulse oximetry Heart rate 103 /min 103 /min [facility] Diastolic blood 72 mm[Hg] 72 mm[Hg] [facility] Systolic blood 111 mm[Hg] 111 mm[Hg] [facility] Body temperature 36.129101 Kaylie 36.886921 Kaylie [facility] Respiratory rate 16 /min 16 /min [facility] Oxygen 96 % 96 % [facility] saturation in Medical Arterial blood Center by Pulse oximetry Heart rate 97 /min 97 /min [facility] Diastolic blood 77 mm[Hg] 77 mm[Hg] [facility] Systolic blood 133 mm[Hg] 133 mm[Hg] [facility] Body temperature 36.532757 Kaylie 36.740902 Kaylie [facility] Respiratory rate 17 /min 17 /min [facility] Oxygen 94 % 94 % [facility] saturation in Medical Arterial blood Center by Pulse oximetry Heart rate 92 /min 92 /min [facility] Diastolic blood 80 mm[Hg] 80 mm[Hg] [facility] Systolic blood 122 mm[Hg] 122 mm[Hg] [facility] Body weight 113.431784 kg 113.306586 kg [facility] Body temperature 36.061434 Kaylie 36.283615 Kaylie [facility] Respiratory rate 16 /min 16 /min [facility] Oxygen 94 % 94 % [place] saturation in Medical Arterial blood Center by Pulse oximetry Heart rate 90 /min 90 /min [facility] Body height 177.939909 cm 177.404995 cm [facility] Diastolic blood 64 mm[Hg] 64 mm[Hg] [facility] pressure Medical Center Systolic blood 128 mm[Hg] 128 mm[Hg] [facility] Body mass index 35.8 kg/m2 35.8 kg/m2 [facility] (BMI) [Ratio] Medical Center Body temperature 36.223836 Kaylie 36.353873 Kaylie [facility] Respiratory rate 18 /min 18 /min [facility] Oxygen 95 % 95 % [place] saturation in Medical Arterial blood Center by Pulse oximetry Heart rate 76 /min 76 /min [facility] Diastolic blood 76 mm[Hg] 76 mm[Hg] [facility] Systolic blood 128 mm[Hg] 128 mm[Hg] [facility] Body temperature 36.734330 Kaylie 36.495818 Kaylie [facility] Respiratory rate 18 /min 18 /min [facility] Oxygen 97 % 97 % [facility] saturation in Medical Arterial blood Center by Pulse oximetry Heart rate 78 /min 78 /min [facility] Diastolic blood 70 mm[Hg] 70 mm[Hg] [facility] Systolic blood 124 mm[Hg] 124 mm[Hg] [facility] Body weight 86.870724 kg 86.567374 kg [facility] Body temperature 36.218372 Kaylie 36.662338 Kaylie [facility] Respiratory rate 19 /min 19 /min [facility] Oxygen 97 % 97 % [place] saturation in [facility] Ar[facility] blood Center by Pulse oximetry Heart rate 74 /min 74 /min [facility] Body height 180.509825 cm 180.340635 cm [facility] Diastolic blood 68 mm[Hg] 68 mm[Hg] [facility] Systolic blood 128 mm[Hg] 128 mm[Hg] [facility] Body mass index 26.4 kg/m2 26.4 kg/m2 [facility] (BMI) [Ratio] Medical Center Body temperature 36.757551 Kaylie 36.295627 Kaylie [facility] Respiratory rate 18 /min 18 /min [facility] Oxygen 98 % 98 % [facility] [place] saturation in Medical Arterial blood Center by Pulse oximetry Heart rate 91 /min 91 /min [facility] Diastolic blood 65 mm[Hg] 65 mm[Hg] [facility] Systolic blood 129 mm[Hg] 129 mm[Hg] [facility] Body temperature 36.050793 Kaylie 36.620712 Kaylie [facility] Respiratory rate 16 /min 16 /min [facility] Oxygen 98 % 98 % [facility] saturation in Medical Arterial blood Center by Pulse oximetry Heart rate 82 /min 82 /min [facility] Diastolic blood 64 mm[Hg] 64 mm[Hg] [facility] Systolic blood 123 mm[Hg] 123 mm[Hg] [facility] Body temperature 36.693455 Kaylie 36.737163 Kaylie [facility] Respiratory rate 14 /min 14 /min [facility] Oxygen 95 % 95 % [facility] saturation in Medical Arterial blood Center by Pulse oximetry Heart rate 61 /min 61 /min [facility] Diastolic blood 74 mm[Hg] 74 mm[Hg] [facility] Systolic blood 124 mm[Hg] 124 mm[Hg] [facility] Body temperature 37.814442 Kaylie 37.087156 Kaylie [facility] Respiratory rate 16 /min 16 /min [facility] Oxygen 99 % 99 % [facility] saturation in Medical Arterial blood Center by Pulse oximetry Heart rate 89 /min 89 /min [facility] Diastolic blood 76 mm[Hg] 76 mm[Hg] [facility] Systolic blood 125 mm[Hg] 125 mm[Hg] [facility] Body temperature 37.962636 Kaylie 37.424157 Kaylie [facility] Respiratory rate 14 /min 14 /min [facility] Oxygen 99 % 99 % [facility] saturation in Medical Arterial blood Center by Pulse oximetry Heart rate 91 /min 91 /min [facility] Diastolic blood 80 mm[Hg] 80 mm[Hg] [facility] Systolic blood 120 mm[Hg] 120 mm[Hg] [facility] Body temperature 36.907142 Kaylie 36.156643 Kaylie [facility] Respiratory rate 18 /min 18 /min [facility] Oxygen 99 % 99 % [facility] saturation in Medical Arterial blood Center by Pulse oximetry Heart rate 93 /min 93 /min [facility] Diastolic blood 78 mm[Hg] 78 mm[Hg] [facility] Systolic blood 115 mm[Hg] 115 mm[Hg] [facility] Body temperature 36.877912 Kaylie 36.379338 Kaylie [facility] Respiratory rate 18 /min 18 /min [facility] Oxygen 95 % 95 % [facility] saturation in Medical Arterial blood Center by Pulse oximetry Heart rate 83 /min 83 /min [facility] Diastolic blood 69 mm[Hg] 69 mm[Hg] [facility] Systolic blood 102 mm[Hg] 102 mm[Hg] [facility] Body temperature 37.067703 Kaylie 37.752495 Kaylie [facility] Respiratory rate 18 /min 18 /min [facility] Oxygen 98 % 98 % [facility] [place] saturation in Medical Arterial blood Center by Pulse oximetry Heart rate 91 /min 91 /min [facility] Diastolic blood 65 mm[Hg] 65 mm[Hg] [facility] Systolic blood 101 mm[Hg] 101 mm[Hg] [facility] Body temperature 37.017922 Kaylie 37.627427 Kaylie [facility] Respiratory rate 18 /min 18 /min [facility] Oxygen 96 % 96 % [facility] [place] saturation in Medical Arterial blood Center by Pulse oximetry Heart rate 94 /min 94 /min [facility] Diastolic blood 87 mm[Hg] 87 mm[Hg] [facility] Systolic blood 156 mm[Hg] 156 mm[Hg] [facility] Body temperature 36.149365 Kaylie 36.634934 Kaylie [facility] Respiratory rate 17 /min 17 /min [facility] Oxygen 96 % 96 % [facility] [place] saturation in Medical Arterial blood Center by Pulse oximetry Heart rate 95 /min 95 /min [facility] Diastolic blood 91 mm[Hg] 91 mm[Hg] [facility] pressure [facility] Center Systolic blood 149 mm[Hg] 149 mm[Hg] [facility] Body temperature 36.536565 Kaylie 36.335220 Kaylie [facility] Respiratory rate 17 /min 17 /min [facility] Oxygen 96 % 96 % [facility] [place] saturation in Medical Arterial blood Center by Pulse oximetry Heart rate 92 /min 92 /min [facility] Diastolic blood 86 mm[Hg] 86 mm[Hg] [facility] pressure [facility] Center Systolic blood 157 mm[Hg] 157 mm[Hg] [facility] Body temperature 36.442518 Kaylie 36.533735 Kaylie [facility] Respiratory rate 19 /min 19 /min [facility] Oxygen 99 % 99 % [facility] [place] saturation in Medical Arterial blood Center by Pulse oximetry Heart rate 100 /min 100 /min [facility] Diastolic blood 91 mm[Hg] 91 mm[Hg] [facility] pressure [facility] Center Systolic blood 160 mm[Hg] 160 mm[Hg] [facility] Body temperature 36.235070 Kaylie 36.138354 Kaylie [facility] Respiratory rate 22 /min 22 /min [facility] Oxygen 95 % 95 % [facility] [place] saturation in Medical Arterial blood Center by Pulse oximetry Heart rate 82 /min 82 /min [facility] Diastolic blood 91 mm[Hg] 91 mm[Hg] [facility] pressure [facility] Center Systolic blood 143 mm[Hg] 143 mm[Hg] [facility] Body temperature 37.224331 Kaylie 37.396131 Kaylie [facility] Respiratory rate 20 /min 20 /min [facility] Oxygen 95 % 95 % [facility] saturation in [facility] Ar[facility]ial blood Center by Pulse oximetry Heart rate 111 /min 111 /min [facility] Diastolic blood 89 mm[Hg] 89 mm[Hg] [facility] pressure [facility] Center Systolic blood 128 mm[Hg] 128 mm[Hg] [facility] Respiratory rate 20 /min 20 /min [facility] Oxygen 95 % 95 % [facility] [place] saturation in [facility] Ar[facility]ial blood Center by Pulse oximetry Heart rate 113 /min 113 /min [facility] Body height 177.140500 cm 177.321406 cm [facility] Diastolic blood 68 mm[Hg] 68 mm[Hg] [facility] pressure [facility] Center Systolic blood 133 mm[Hg] 133 mm[Hg] [facility] Body mass index 31.6 kg/m2 31.6 kg/m2 [facility] (BMI) [Ratio] Medical Center Body weight 100.455435 kg 100.755451 kg [facility] Body temperature 37.735297 Kaylie 37.667519 Kaylie [facility] Body temperature 36.345365 Kaylie 36.565656 Kaylie [facility] Respiratory rate 18 /min 18 /min [facility] Oxygen 97 % 97 % [facility] saturation in Medical Arterial blood Center by Pulse oximetry Heart rate 67 /min 67 /min [facility] Diastolic blood 78 mm[Hg] 78 mm[Hg] [facility] Systolic blood 134 mm[Hg] 134 mm[Hg] [facility] Body weight 95.926946 kg 95.290523 kg [facility] Body temperature 36.768180 Kaylie 36.696920 Kaylie [facility] Respiratory rate 20 /min 20 /min [facility] Oxygen 100 % 100 % [facility] saturation in Medical Arterial blood Center by Pulse oximetry Heart rate 84 /min 84 /min [facility] Body height 177.281927 cm 177.417012 cm [facility] Diastolic blood 90 mm[Hg] 90 mm[Hg] [facility] pressure [facility] Center Systolic blood 130 mm[Hg] 130 mm[Hg] [facility] Body mass index 30.0 kg/m2 30.0 kg/m2 [facility] (BMI) [Ratio] Medical Center Body temperature 36.785045 Kaylie 36.932235 Kaylie [facility] Respiratory rate 18 /min 18 /min [facility] Oxygen 95 % 95 % [facility] saturation in Medical Arterial blood Center by Pulse oximetry Heart rate 73 /min 73 /min [facility] Diastolic blood 71 mm[Hg] 71 mm[Hg] [facility] Systolic blood 139 mm[Hg] 139 mm[Hg] [facility] Body weight 100.967501 kg 100.399774 kg [facility] Body temperature 36.543342 Kaylie 36.031387 Kaylie [facility] Respiratory rate 18 /min 18 /min [facility] Oxygen 92 % 92 % [facility] saturation in Medical Ar[facility]ial blood Center by Pulse oximetry Heart rate 102 /min 102 /min [facility] Body height 177.254232 cm 177.155575 cm [facility] Diastolic blood 56 mm[Hg] 56 mm[Hg] [facility] Systolic blood 109 mm[Hg] 109 mm[Hg] [facility] Body mass index 31.6 kg/m2 31.6 kg/m2 [facility] (BMI) [Ratio] Medical Center Body temperature 36.844154 Kaylie 36.662857 Kaylie [facility] Respiratory rate 18 /min 18 /min [facility] Oxygen 98 % 98 % [facility] saturation in Medical Arterial blood Center by Pulse oximetry Heart rate 88 /min 88 /min [facility] Diastolic blood 78 mm[Hg] 78 mm[Hg] [facility] Systolic blood 148 mm[Hg] 148 mm[Hg] [facility] Body temperature 36.598614 Kaylie 36.710183 Kaylie [facility] Respiratory rate 18 /min 18 /min [facility] Oxygen 98 % 98 % [facility] saturation in Medical Arterial blood Center by Pulse oximetry Heart rate 98 /min 98 /min [facility] Diastolic blood 68 mm[Hg] 68 mm[Hg] [facility] Systolic blood 113 mm[Hg] 113 mm[Hg] [facility] Body temperature 37.620111 Kaylie 37.528393 Kaylie [facility] Respiratory rate 18 /min 18 /min [facility] Oxygen 95 % 95 % [facility] [place] saturation in Medical Ar[facility]ial blood Center by Pulse oximetry Heart rate 84 /min 84 /min [facility] Diastolic blood 82 mm[Hg] 82 mm[Hg] [facility] Systolic blood 131 mm[Hg] 131 mm[Hg] [facility] Body temperature 37.417264 Kaylie 37.761707 Kaylie [facility] Respiratory rate 18 /min 18 /min [facility] Oxygen 94 % 94 % [facility] saturation in Medical Arterial blood Center by Pulse oximetry Heart rate 88 /min 88 /min [facility] Diastolic blood 91 mm[Hg] 91 mm[Hg] [facility] Systolic blood 134 mm[Hg] 134 mm[Hg] [facility] Body weight 102.605255 kg 102.560070 kg [facility] Respiratory rate 18 /min 18 /min [facility] Oxygen 93 % 93 % [facility] saturation in Medical Arterial blood Center by Pulse oximetry Heart rate 98 /min 98 /min [facility] Body height 182.722636 cm 182.528520 cm [facility] Diastolic blood 80 mm[Hg] 80 mm[Hg] [facility] pressure [facility] Center Systolic blood 178 mm[Hg] 178 mm[Hg] [facility] Body mass index 30.5 kg/m2 30.5 kg/m2 [facility] (BMI) [Ratio] Medical Center Body temperature 36.741966 Kaylie 36.635782 Kaylie [facility] Respiratory rate 18 /min 18 /min [facility] Oxygen 95 % 95 % [facility] saturation in Medical Arterial blood Center by Pulse oximetry Heart rate 96 /min 96 /min [facility] Diastolic blood 89 mm[Hg] 89 mm[Hg] [facility] Systolic blood 114 mm[Hg] 114 mm[Hg] [facility] Body temperature 36.243639 Kaylie 36.949886 Kaylie [facility] Respiratory rate 17 /min 17 /min [facility] Oxygen 96 % 96 % [facility] saturation in Medical Arterial blood Center by Pulse oximetry Heart rate 98 /min 98 /min [facility] Diastolic blood 68 mm[Hg] 68 mm[Hg] [facility] Systolic blood 128 mm[Hg] 128 mm[Hg] [facility] Oxygen 97 % 97 % [facility] saturation in [facility] Arterial blood Center by Pulse oximetry Heart rate 116 /min 116 /min [facility] Diastolic blood 61 mm[Hg] 61 mm[Hg] [facility] Systolic blood 117 mm[Hg] 117 mm[Hg] [facility] Respiratory rate 18 /min 18 /min [facility] Body temperature 36.595542 Kaylie 36.742223 Kaylie [facility] Body temperature 36.616705 Kaylie 36.344290 Kay[facility] Respiratory rate 18 /min 18 /min [facility] Oxygen 97 % 97 % [facility] saturation in Medical Arterial blood Center by Pulse oximetry Heart rate 76 /min 76 /min [facility] Diastolic blood 76 mm[Hg] 76 mm[Hg] [facility] pressure [facility] Center Systolic blood 138 mm[Hg] 138 mm[Hg] [facility] Body temperature 36.306221 Kaylie 36.566811 Kaylie [facility] Respiratory rate 18 /min 18 /min [facility] Oxygen 98 % 98 % [facility] saturation in Medical Arterial blood Center by Pulse oximetry Heart rate 85 /min 85 /min [facility] Diastolic blood 95 mm[Hg] 95 mm[Hg] [facility] Systolic blood 154 mm[Hg] 154 mm[Hg] [facility] Body weight 86.861916 kg 86.380659 kg [facility] Body temperature 36.665610 Kaylie 36.379078 Kaylie [facility] Respiratory rate 20 /min 20 /min [facility] Oxygen 95 % 95 % [facility] saturation in Medical Arterial blood Center by Pulse oximetry Heart rate 76 /min 76 /min [facility] Body height 170.096480 cm 170.797413 cm [facility] Diastolic blood 74 mm[Hg] 74 mm[Hg] [facility] Systolic blood 120 mm[Hg] 120 mm[Hg] [facility] Body mass index 29.7 kg/m2 29.7 kg/m2 [facility] (BMI) [Ratio] [facility] Center Body temperature 36.550921 Kaylie 36.366814 Kaylie [facility] Respiratory rate 16 /min 16 /min [facility] Oxygen 95 % 95 % [facility] saturation in Medical Arterial blood Center by Pulse oximetry Heart rate 92 /min 92 /min [facility] Diastolic blood 68 mm[Hg] 68 mm[Hg] [facility] pressure Medical Center Systolic blood 112 mm[Hg] 112 mm[Hg] [facility] Body temperature 37.341723 Kaylie 37.321248 Kaylie [facility] Respiratory rate 18 /min 18 /min [facility] Oxygen 95 % 95 % [facility] saturation in Medical Arterial blood Center by Pulse oximetry Heart rate 88 /min 88 /min [facility] Diastolic blood 57 mm[Hg] 57 mm[Hg] [facility] Systolic blood 107 mm[Hg] 107 mm[Hg] [facility] Body weight 120.140341 kg 120.357394 kg [facility] Body temperature 36.292944 Kaylie 36.522668 Kaylie [facility] Respiratory rate 18 /min 18 /min [facility] Oxygen 98 % 98 % [place] saturation in Medical Arterial blood Center by Pulse oximetry Heart rate 84 /min 84 /min [facility] Body height 182.187722 cm 182.479896 cm [facility] Diastolic blood 78 mm[Hg] 78 mm[Hg] [facility] pressure Medical Center Systolic blood 148 mm[Hg] 148 mm[Hg] [facility] Body mass index 35.8 kg/m2 35.8 kg/m2 [facility] (BMI) [Ratio] [facility] Center Body temperature 37.547826 Kaylie 37.288461 Kaylie [facility] Respiratory rate 18 /min 18 /min [facility] Oxygen 95 % 95 % [facility] saturation in Medical Arterial blood Center by Pulse oximetry Heart rate 94 /min 94 /min [facility] Diastolic blood 56 mm[Hg] 56 mm[Hg] [facility] pressure Medical Center Systolic blood 110 mm[Hg] 110 mm[Hg] [facility] Body temperature 38.840060 Kaylie 38.490435 Kaylie [facility] Respiratory rate 18 /min 18 /min [facility] Oxygen 97 % 97 % [facility] saturation in Medical Arterial blood Center by Pulse oximetry Heart rate 98 /min 98 /min [facility] Diastolic blood 87 mm[Hg] 87 mm[Hg] [facility] Systolic blood 140 mm[Hg] 140 mm[Hg] [facility] Body temperature 36.648966 Kaylie 36.156569 Kaylie [facility] Respiratory rate 16 /min 16 /min [facility] Oxygen 98 % 98 % [facility] saturation in Medical Arterial blood Center by Pulse oximetry Heart rate 87 /min 87 /min [facility] Diastolic blood 84 mm[Hg] 84 mm[Hg] [facility] Systolic blood 138 mm[Hg] 138 mm[Hg] [facility] Body temperature 37.697004 Kaylie 37.978279 Kaylie [facility] Respiratory rate 18 /min 18 /min [facility] Oxygen 97 % 97 % [facility] saturation in Medical Arterial blood Center by Pulse oximetry Heart rate 88 /min 88 /min [facility] Diastolic blood 72 mm[Hg] 72 mm[Hg] [facility] Systolic blood 134 mm[Hg] 134 mm[Hg] [facility] Body temperature 36.309450 Kaylie 36.533171 Kaylie [facility] Respiratory rate 18 /min 18 /min [facility] Oxygen 98 % 98 % [facility] saturation in Medical Arterial blood Center by Pulse oximetry Heart rate 71 /min 71 /min [facility] Diastolic blood 68 mm[Hg] 68 mm[Hg] [facility] Systolic blood 133 mm[Hg] 133 mm[Hg] [facility] Body temperature 35.185400 Kaylie 35.978759 Kaylie [facility] Respiratory rate 17 /min 17 /min [facility] Oxygen 95 % 95 % [facility] saturation in Medical Arterial blood Center by Pulse oximetry Heart rate 93 /min 93 /min [facility] Diastolic blood 105 mm[Hg] 105 mm[Hg] [facility] Systolic blood 180 mm[Hg] 180 mm[Hg] [facility] Body temperature 36.987805 Kaylie 36.168327 Kaylie [facility] Respiratory rate 20 /min 20 /min [facility] Oxygen 97 % 97 % [facility] saturation in Medical Arterial blood Center by Pulse oximetry Heart rate 89 /min 89 /min [facility] Diastolic blood 92 mm[Hg] 92 mm[Hg] [facility] pressure Medical Center Systolic blood 158 mm[Hg] 158 mm[Hg] [facility] Body temperature 36.609654 Kaylie 36.073358 Kaylie [facility] Respiratory rate 18 /min 18 /min [facility] Oxygen 96 % 96 % [facility] saturation in Medical Arterial blood Center by Pulse oximetry Heart rate 86 /min 86 /min [facility] Diastolic blood 87 mm[Hg] 87 mm[Hg] [facility] pressure Medical Center Systolic blood 163 mm[Hg] 163 mm[Hg] [facility] Body temperature 36.410890 Kaylie 36.270695 Kaylie [facility] Respiratory rate 20 /min 20 /min [facility] Oxygen 98 % 98 % [facility] saturation in Medical Arterial blood Center by Pulse oximetry Heart rate 89 /min 89 /min [facility] Diastolic blood 103 mm[Hg] 103 mm[Hg] [facility] Systolic blood 154 mm[Hg] 154 mm[Hg] [facility] Heart rate 91 /min 91 /min [facility] Diastolic blood 110 mm[Hg] 110 mm[Hg] [facility] pressure Medical Center Systolic blood 167 mm[Hg] 167 mm[Hg] [facility] Body temperature 36.512645 Kaylie 36.851242 Kaylie [facility] Respiratory rate 18 /min 18 /min [facility] Oxygen 98 % 98 % [facility] saturation in Medical Arterial blood Center by Pulse oximetry Body temperature 36.398124 Kaylie 36.636862 Kaylie [facility] Respiratory rate 20 /min 20 /min [facility] Oxygen 95 % 95 % [facility] saturation in Medical Arterial blood Center by Pulse oximetry Heart rate 96 /min 96 /min [facility] Diastolic blood 146 mm[Hg] 146 mm[Hg] [facility] Systolic blood 211 mm[Hg] 211 mm[Hg] [facility] Body temperature 36.418914 Kaylie 36.785094 Kaylie [facility] Respiratory rate 18 /min 18 /min [facility] Oxygen 97 % 97 % [facility] saturation in Medical Arterial blood Center by Pulse oximetry Heart rate 79 /min 79 /min [facility] Diastolic blood 106 mm[Hg] 106 mm[Hg] [facility] pressure Medical Center Systolic blood 179 mm[Hg] 179 mm[Hg] [facility] Body temperature 37.685277 Kaylie 37.890455 Kaylie [facility] Respiratory rate 18 /min 18 /min [facility] Oxygen 96 % 96 % [facility] saturation in Medical Arterial blood Center by Pulse oximetry Heart rate 81 /min 81 /min [facility] Diastolic blood 82 mm[Hg] 82 mm[Hg] [facility] Systolic blood 151 mm[Hg] 151 mm[Hg] [facility] Body temperature 36.518739 Kaylie 36.211782 Kaylie [facility] Respiratory rate 18 /min 18 /min [facility] Heart rate 77 /min 77 /min [facility] Body temperature 37.289556 Kaylie 37.306948 Kaylie [facility] Respiratory rate 18 /min 18 /min [facility] Oxygen 97 % 97 % [facility] saturation in Medical Arterial blood Center by Pulse oximetry Heart rate 80 /min 80 /min [facility] Diastolic blood 89 mm[Hg] 89 mm[Hg] [facility] Systolic blood 153 mm[Hg] 153 mm[Hg] [facility] Oxygen 97 % 97 % [facility] saturation in Medical Arterial blood Center by Pulse oximetry Diastolic blood 90 mm[Hg] 90 mm[Hg] [facility] Systolic blood 177 mm[Hg] 177 mm[Hg] [facility] Body temperature 36.830653 Kaylie 36.865597 Kaylie [facility] Respiratory rate 17 /min 17 /min [facility] Oxygen 95 % 95 % [facility] saturation in Medical Arterial blood Center by Pulse oximetry Heart rate 67 /min 67 /min [facility] Diastolic blood 98 mm[Hg] 98 mm[Hg] [facility] Systolic blood 160 mm[Hg] 160 mm[Hg] [facility] Body weight 100.638910 kg 100.523798 kg [facility] Body temperature 36.409737 Kaylie 36.100862 Kaylie [facility] Respiratory rate 19 /min 19 /min [facility] Oxygen 98 % 98 % [facility] saturation in Medical Arterial blood Center by Pulse oximetry Heart rate 92 /min 92 /min [facility] Body height 177.407298 cm 177.221009 cm [facility] Diastolic blood 103 mm[Hg] 103 mm[Hg] [facility] pressure [facility] Center Systolic blood 166 mm[Hg] 166 mm[Hg] [facility] Body mass index 31.6 kg/m2 31.6 kg/m2 [facility] (BMI) [Ratio] Medical Center Body temperature 36.189247 Kaylie 36.922625 Kaylie [facility] Respiratory rate 18 /min 18 /min [facility] Oxygen 96 % 96 % [facility] saturation in Medical Arterial blood Center by Pulse oximetry Heart rate 90 /min 90 /min [facility] Diastolic blood 74 mm[Hg] 74 mm[Hg] [facility] pressure [facility] Center Systolic blood 145 mm[Hg] 145 mm[Hg] [facility] Body temperature 36.991715 Kaylie 36.511801 Kaylie [facility] Respiratory rate 18 /min 18 /min [facility] Oxygen 97 % 97 % [facility] saturation in Medical Arterial blood Center by Pulse oximetry Heart rate 92 /min 92 /min [facility] Diastolic blood 78 mm[Hg] 78 mm[Hg] [facility] pressure [facility] Center Systolic blood 147 mm[Hg] 147 mm[Hg] [facility] Body temperature 37.294433 Kaylie 37.501013 Kaylie [facility] Respiratory rate 19 /min 19 /min [facility] Oxygen 96 % 96 % [facility] saturation in Medical Arterial blood Center by Pulse oximetry Heart rate 90 /min 90 /min [facility] Diastolic blood 74 mm[Hg] 74 mm[Hg] [facility] pressure [facility] Center Systolic blood 132 mm[Hg] 132 mm[Hg] [facility] Body temperature 36.568858 Kaylie 36.744617 Kaylie [facility] Respiratory rate 18 /min 18 /min [facility] Oxygen 92 % 92 % [facility] saturation in Medical Arterial blood Center by Pulse oximetry Heart rate 93 /min 93 /min [facility] Diastolic blood 78 mm[Hg] 78 mm[Hg] [facility] pressure [facility] Center Systolic blood 130 mm[Hg] 130 mm[Hg] [facility] Body temperature 36.720231 Kaylie 36.620435 Kaylie [facility] Respiratory rate 17 /min 17 /min [facility] Oxygen 97 % 97 % [facility] saturation in Medical Arterial blood Center by Pulse oximetry Heart rate 75 /min 75 /min [facility] Diastolic blood 65 mm[Hg] 65 mm[Hg] [facility] Systolic blood 139 mm[Hg] 139 mm[Hg] [facility] Body weight 104.366090 kg 104.010970 kg [facility] Body temperature 36.066116 Kaylie 36.211777 Kaylie [facility] Respiratory rate 17 /min 17 /min [facility] Oxygen 92 % 92 % [facility] saturation in Medical Arterial blood Center by Pulse oximetry Heart rate 88 /min 88 /min [facility] Body height 177.614349 cm 177.972939 cm [facility] Diastolic blood 74 mm[Hg] 74 mm[Hg] [facility] Systolic blood 126 mm[Hg] 126 mm[Hg] [facility] Body mass index 33.0 kg/m2 33.0 kg/m2 [facility] (BMI) [Ratio] Medical Center Body temperature 37.916298 Kaylie 37.642886 Kaylie [facility] Respiratory rate 18 /min 18 /min [facility] Oxygen 96 % 96 % [facility] saturation in Medical Arterial blood Center by Pulse oximetry Heart rate 93 /min 93 /min [facility] Diastolic blood 78 mm[Hg] 78 mm[Hg] [facility] pressure [facility] Center Systolic blood 138 mm[Hg] 138 mm[Hg] [facility] Body temperature 36.547147 Kaylie 36.953802 Kaylie [facility] Respiratory rate 18 /min 18 /min [facility] Oxygen 97 % 97 % [facility] saturation in Medical Arterial blood Center by Pulse oximetry Heart rate 89 /min 89 /min [facility] Diastolic blood 86 mm[Hg] 86 mm[Hg] [facility] Systolic blood 142 mm[Hg] 142 mm[Hg] [facility] Body temperature 36.768998 Kaylie 36.712281 Kaylie [facility] Respiratory rate 18 /min 18 /min [facility] Oxygen 98 % 98 % [facility] saturation in Medical Arterial blood Center by Pulse oximetry Heart rate 75 /min 75 /min [facility] Diastolic blood 65 mm[Hg] 65 mm[Hg] [facility] Systolic blood 131 mm[Hg] 131 mm[Hg] [facility] Body temperature 36.295419 Kaylie 36.048536 Kaylie [facility] Respiratory rate 17 /min 17 /min [facility] Oxygen 97 % 97 % [facility] saturation in Medical Arterial blood Center by Pulse oximetry Heart rate 81 /min 81 /min [facility] Diastolic blood 73 mm[Hg] 73 mm[Hg] [facility] Systolic blood 139 mm[Hg] 139 mm[Hg] [facility] Body temperature 36.053611 Kaylie 36.785839 Kaylie [facility] Respiratory rate 18 /min 18 /min [facility] Oxygen 98 % 98 % [facility] saturation in Medical Arterial blood Center by Pulse oximetry Heart rate 88 /min 88 /min [facility] Diastolic blood 72 mm[Hg] 72 mm[Hg] [facility] Systolic blood 148 mm[Hg] 148 mm[Hg] [facility] Body temperature 36.538286 Kaylie 36.757979 Kaylie [facility] Respiratory rate 17 /min 17 /min [facility] Oxygen 95 % 95 % [facility] saturation in Medical Arterial blood Center by Pulse oximetry Heart rate 84 /min 84 /min [facility] Diastolic blood 83 mm[Hg] 83 mm[Hg] [facility] Systolic blood 138 mm[Hg] 138 mm[Hg] [facility] Body temperature 37.605499 Kaylie 37.191287 Kaylie [facility] Respiratory rate 18 /min 18 /min [facility] Oxygen 95 % 95 % [facility] saturation in Medical Arterial blood Center by Pulse oximetry Heart rate 88 /min 88 /min [facility] Diastolic blood 78 mm[Hg] 78 mm[Hg] [facility] Systolic blood 143 mm[Hg] 143 mm[Hg] [facility] Body temperature 36.481046 Kaylie 36.233786 Kaylie [facility] Respiratory rate 18 /min 18 /min [facility] Oxygen 95 % 95 % [place] saturation in Medical Arterial blood Center by Pulse oximetry Heart rate 87 /min 87 /min [facility] Diastolic blood 98 mm[Hg] 98 mm[Hg] [facility] Systolic blood 122 mm[Hg] 122 mm[Hg] [facility] Body temperature 36.701712 Kaylie 36.530310 Kaylie [facility] Respiratory rate 16 /min 16 /min [facility] Oxygen 95 % 95 % [place] saturation in Medical Arterial blood Center by Pulse oximetry Heart rate 68 /min 68 /min [facility] Diastolic blood 60 mm[Hg] 60 mm[Hg] [facility] Systolic blood 118 mm[Hg] 118 mm[Hg] [facility] Body temperature 37.028294 Kaylie 37.910471 Kaylie [facility] Respiratory rate 20 /min 20 /min [facility] Oxygen 97 % 97 % [place] saturation in Medical Arterial blood Center by Pulse oximetry Heart rate 96 /min 96 /min [facility] Diastolic blood 95 mm[Hg] 95 mm[Hg] [facility] Systolic blood 167 mm[Hg] 167 mm[Hg] [facility] Body temperature 36.221668 Kaylie 36.083227 Kaylie [facility] Respiratory rate 20 /min 20 /min [facility] Oxygen 96 % 96 % [place] saturation in Medical Arterial blood Center by Pulse oximetry Heart rate 86 /min 86 /min [facility] Diastolic blood 99 mm[Hg] 99 mm[Hg] [facility] Systolic blood 168 mm[Hg] 168 mm[Hg] [facility] Body weight 109.629059 kg 109.805356 kg [facility] Body temperature 36.423345 Kaylie 36.419745 Kaylie [facility] Respiratory rate 20 /min 20 /min [facility] Oxygen 97 % 97 % [facility] saturation in Medical Arterial blood Center by Pulse oximetry Heart rate 88 /min 88 /min [facility] Body height 175.761713 cm 175.961849 cm [facility] Diastolic blood 104 mm[Hg] 104 mm[Hg] [facility] pressure [facility] Center Systolic blood 165 mm[Hg] 165 mm[Hg] [facility] Body mass index 35.5 kg/m2 35.5 kg/m2 [facility] (BMI) [Ratio] Medical Center Body temperature 36.486522 Kaylie 36.126049 Kaylie [facility] Respiratory rate 20 /min 20 /min [facility] Oxygen 94 % 94 % [place] saturation in Medical Arterial blood Center by Pulse oximetry Heart rate 89 /min 89 /min [facility] Diastolic blood 81 mm[Hg] 81 mm[Hg] [facility] pressure [facility] Center Systolic blood 137 mm[Hg] 137 mm[Hg] [facility] Body temperature 36.507315 Kaylie 36.177213 Kaylie [facility] Respiratory rate 17 /min 17 /min [facility] Oxygen 98 % 98 % [facility] saturation in Medical Arterial blood Center by Pulse oximetry Heart rate 74 /min 74 /min [facility] Diastolic blood 73 mm[Hg] 73 mm[Hg] [facility] pressure [facility] Center Systolic blood 135 mm[Hg] 135 mm[Hg] [facility] Body temperature 37.297932 Kaylie 37.732396 Kaylie [facility] Respiratory rate 18 /min 18 /min [facility] Oxygen 99 % 99 % [facility] saturation in Medical Arterial blood Center by Pulse oximetry Heart rate 93 /min 93 /min [facility] Diastolic blood 77 mm[Hg] 77 mm[Hg] [facility] pressure [facility] Center Systolic blood 141 mm[Hg] 141 mm[Hg] [facility] Body temperature 37.531758 Kaylie 37.279048 Kaylie [facility] Respiratory rate 18 /min 18 /min [facility] Oxygen 99 % 99 % [facility] saturation in Medical Arterial blood Center by Pulse oximetry Heart rate 73 /min 73 /min [facility] Diastolic blood 85 mm[Hg] 85 mm[Hg] [facility] Systolic blood 128 mm[Hg] 128 mm[Hg] [facility] Body temperature 36.949793 Kaylie 36.868250 Kaylie [facility] Respiratory rate 17 /min 17 /min [facility] Oxygen 99 % 99 % [facility] saturation in Medical Arterial blood Center by Pulse oximetry Heart rate 85 /min 85 /min [facility] Diastolic blood 78 mm[Hg] 78 mm[Hg] [facility] pressure [facility] Center Systolic blood 132 mm[Hg] 132 mm[Hg] [facility] Body temperature 36.471549 Kaylie 36.488410 Kaylie [facility] Respiratory rate 18 /min 18 /min [facility] Oxygen 98 % 98 % [facility] saturation in Medical Arterial blood Center by Pulse oximetry Heart rate 82 /min 82 /min [facility] Diastolic blood 83 mm[Hg] 83 mm[Hg] [facility] pressure [facility] Center Systolic blood 125 mm[Hg] 125 mm[Hg] [facility] Body temperature 37.079153 Kaylie 37.517701 Kaylie [facility] Respiratory rate 18 /min 18 /min [facility] Oxygen 97 % 97 % [facility] saturation in Medical Arterial blood Center by Pulse oximetry Heart rate 101 /min 101 /min [facility] Diastolic blood 77 mm[Hg] 77 mm[Hg] [facility] Systolic blood 137 mm[Hg] 137 mm[Hg] [facility] Heart rate 88 /min 88 /min [facility] Diastolic blood 78 mm[Hg] 78 mm[Hg] [facility] Systolic blood 144 mm[Hg] 144 mm[Hg] [facility] Body temperature 36.404075 Kaylie 36.428998 Kaylie [facility] Respiratory rate 18 /min 18 /min [facility] Oxygen 97 % 97 % [facility] saturation in Medical Arterial blood Center by Pulse oximetry Body temperature 37.276032 Kaylie 37.832876 Kaylie [facility] Respiratory rate 18 /min 18 /min [facility] Oxygen 95 % 95 % [facility] saturation in Medical Arterial blood Center by Pulse oximetry Heart rate 90 /min 90 /min [facility] Diastolic blood 92 mm[Hg] 92 mm[Hg] [facility] pressure [facility] Center Systolic blood 153 mm[Hg] 153 mm[Hg] [facility] Body temperature 37.898295 Kaylie 37.198205 Kaylie [facility] Respiratory rate 18 /min 18 /min [facility] Oxygen 95 % 95 % [facility] saturation in Medical Arterial blood Center by Pulse oximetry Heart rate 96 /min 96 /min [facility] Diastolic blood 75 mm[Hg] 75 mm[Hg] [facility] Systolic blood 127 mm[Hg] 127 mm[Hg] [facility] Body temperature 36.749959 Kaylie 36.866641 Kaylie [facility] Respiratory rate 18 /min 18 /min [facility] Oxygen 96 % 96 % [facility] saturation in [facility] by Pulse oximetry Heart rate 96 /min 96 /min [facility] Diastolic blood 98 mm[Hg] 98 mm[Hg] [facility] Systolic blood 151 mm[Hg] 151 mm[Hg] [facility] Body temperature 36.342802 Kaylie 36.313476 Kaylie [facility] Respiratory rate 17 /min 17 /min [facility] Oxygen 96 % 96 % [facility] saturation in Medical Arterial blood Center by Pulse oximetry Heart rate 94 /min 94 /min [facility] Diastolic blood 74 mm[Hg] 74 mm[Hg] [facility] Systolic blood 138 mm[Hg] 138 mm[Hg] [facility] Respiratory rate 16 /min 16 /min [facility] Oxygen 98 % 98 % [facility] saturation in Medical Arterial blood Center by Pulse oximetry Heart rate 91 /min 91 /min [facility] Diastolic blood 70 mm[Hg] 70 mm[Hg] [facility] Systolic blood 130 mm[Hg] 130 mm[Hg] [facility] Body temperature 36.610950 Kaylie 36.665060 Kaylie [facility] Respiratory rate 16 /min 16 /min [facility] Oxygen 97 % 97 % [facility] saturation in Medical Arterial blood Center by Pulse oximetry Heart rate 91 /min 91 /min [facility] Diastolic blood 61 mm[Hg] 61 mm[Hg] [facility] Systolic blood 109 mm[Hg] 109 mm[Hg] [facility] Body temperature 36.991927 Kaylie 36.827018 Kaylie [facility] Respiratory rate 17 /min 17 /min [facility] Oxygen 95 % 95 % [facility] saturation in [facility] Arterial blood Center by Pulse oximetry Heart rate 96 /min 96 /min [facility] Diastolic blood 50 mm[Hg] 50 mm[Hg] [facility] Systolic blood 110 mm[Hg] 110 mm[Hg] [facility] Body temperature 36.869531 Kaylie 36.841596 Kaylie [facility] Respiratory rate 18 /min 18 /min [facility] Oxygen 97 % 97 % [facility] saturation in Medical Arterial blood Center by Pulse oximetry Heart rate 82 /min 82 /min [facility] Diastolic blood 70 mm[Hg] 70 mm[Hg] [facility] Systolic blood 120 mm[Hg] 120 mm[Hg] [facility] Body temperature 36.927367 Kaylie 36.518840 Kaylie [facility] Respiratory rate 17 /min 17 /min [facility] Oxygen 98 % 98 % [place] saturation in Medical Arterial blood Center by Pulse oximetry Heart rate 76 /min 76 /min [facility] Diastolic blood 67 mm[Hg] 67 mm[Hg] [facility] Systolic blood 154 mm[Hg] 154 mm[Hg] [facility] Body temperature 36.461703 Kaylie 36.813962 Kaylie [facility] Respiratory rate 18 /min 18 /min [facility] Heart rate 90 /min 90 /min [facility] Diastolic blood 71 mm[Hg] 71 mm[Hg] [facility] Systolic blood 140 mm[Hg] 140 mm[Hg] [facility] Body temperature 36.321485 Kaylie 36.438544 Kaylie [facility] Respiratory rate 17 /min 17 /min [facility] Oxygen 95 % 95 % [place] saturation in Medical Arterial blood Center by Pulse oximetry Heart rate 90 /min 90 /min [facility] Diastolic blood 77 mm[Hg] 77 mm[Hg] [facility] pressure Medical Center Systolic blood 137 mm[Hg] 137 mm[Hg] [facility] Body temperature 36.363811 Kaylie 36.026138 Kaylie [facility] Respiratory rate 18 /min 18 /min [facility] Oxygen 98 % 98 % [facility] saturation in Medical Arterial blood Center by Pulse oximetry Heart rate 76 /min 76 /min [facility] Diastolic blood 80 mm[Hg] 80 mm[Hg] [facility] Systolic blood 124 mm[Hg] 124 mm[Hg] [facility] Body temperature 36.363654 Kaylie 36.784404 Kaylie [facility] Respiratory rate 18 /min 18 /min [facility] Oxygen 99 % 99 % [facility] saturation in Medical Arterial blood Center by Pulse oximetry Heart rate 90 /min 90 /min [facility] Diastolic blood 77 mm[Hg] 77 mm[Hg] [facility] Systolic blood 149 mm[Hg] 149 mm[Hg] [facility] Body temperature 36.437716 Kaylie 36.998841 Kaylie [facility] Respiratory rate 19 /min 19 /min [facility] Oxygen 99 % 99 % [facility] saturation in Medical Arterial blood Center by Pulse oximetry Heart rate 88 /min 88 /min [facility] Diastolic blood 66 mm[Hg] 66 mm[Hg] [facility] Systolic blood 154 mm[Hg] 154 mm[Hg] [facility] Body temperature 36.789542 Kaylie 36.314720 Kaylie [facility] Respiratory rate 18 /min 18 /min [facility] Oxygen 96 % 96 % [facility] saturation in Medical Arterial blood Center by Pulse oximetry Heart rate 93 /min 93 /min [facility] Diastolic blood 76 mm[Hg] 76 mm[Hg] [facility] Systolic blood 144 mm[Hg] 144 mm[Hg] [facility] Body temperature 37.469099 Kaylie 37.235803 Kaylie [facility] Respiratory rate 19 /min 19 /min [facility] Oxygen 95 % 95 % [facility] saturation in Medical Arterial blood Center by Pulse oximetry Heart rate 90 /min 90 /min [facility] Diastolic blood 59 mm[Hg] 59 mm[Hg] [facility] Systolic blood 133 mm[Hg] 133 mm[Hg] [facility] Body temperature 36.620116 Kaylie 36.030118 Kaylie [facility] Respiratory rate 18 /min 18 /min [facility] Oxygen 97 % 97 % [place] saturation in Medical Arterial blood Center by Pulse oximetry Heart rate 88 /min 88 /min [facility] Diastolic blood 67 mm[Hg] 67 mm[Hg] [facility] Systolic blood 148 mm[Hg] 148 mm[Hg] [facility] Body temperature 36.705948 Kaylie 36.594670 Kaylie [facility] Respiratory rate 20 /min 20 /min [facility] Oxygen 94 % 94 % [facility] saturation in [facility] Ar[facility] blood Center by Pulse oximetry Heart rate 88 /min 88 /min [facility] Diastolic blood 66 mm[Hg] 66 mm[Hg] [facility] Systolic blood 135 mm[Hg] 135 mm[Hg] [facility] Body temperature 37.991520 Kaylie 37.871721 Kaylie [facility] Respiratory rate 20 /min 20 /min [facility] Oxygen 94 % 94 % [place] saturation in Medical Arterial blood Center by Pulse oximetry Heart rate 84 /min 84 /min [facility] Diastolic blood 69 mm[Hg] 69 mm[Hg] [facility] Systolic blood 130 mm[Hg] 130 mm[Hg] [facility] Body weight 90.995034 kg 90.193052 kg [facility] Body height 175.282555 cm 175.052533 cm [facility] Body mass index 29.5 kg/m2 29.5 kg/m2 [facility] (BMI) [Ratio] Medical Center Body temperature 36.504376 Kaylie 36.229834 Kaylie [facility] Respiratory rate 17 /min 17 /min [facility] Oxygen 98 % 98 % [facility] saturation in Medical Arterial blood Center by Pulse oximetry Heart rate 71 /min 71 /min [facility] Diastolic blood 76 mm[Hg] 76 mm[Hg] [facility] Systolic blood 136 mm[Hg] 136 mm[Hg] [facility] Body temperature 36.078072 Kaylie 36.498421 Kaylie [facility] Respiratory rate 18 /min 18 /min [facility] Oxygen 97 % 97 % [facility] saturation in [facility] Arterial blood Center by Pulse oximetry Heart rate 76 /min 76 /min [facility] Diastolic blood 76 mm[Hg] 76 mm[Hg] [facility] pressure Medical Center Systolic blood 124 mm[Hg] 124 mm[Hg] [facility] Body temperature 36.202823 Kaylie 36.175809 Kaylie [facility] Respiratory rate 19 /min 19 /min [facility] Oxygen 97 % 97 % [place] saturation in Medical Arterial blood Center by Pulse oximetry Heart rate 97 /min 97 /min [facility] Diastolic blood 73 mm[Hg] 73 mm[Hg] [facility] Systolic blood 118 mm[Hg] 118 mm[Hg] [facility] Body weight 104.783921 kg 104.140659 kg [facility] Body temperature 36.393977 Kaylie 36.584182 Kaylie [facility] Respiratory rate 17 /min 17 /min [facility] Oxygen 96 % 96 % [place] saturation in Medical Arterial blood Center by Pulse oximetry Heart rate 95 /min 95 /min [facility] Body height 177.182732 cm 177.631247 cm [facility] Diastolic blood 81 mm[Hg] 81 mm[Hg] [facility] Systolic blood 150 mm[Hg] 150 mm[Hg] [facility] Body mass index 33.0 kg/m2 33.0 kg/m2 [facility] (BMI) [Ratio] [facility] Center Body temperature 36.892722 Kaylie 36.416016 Kaylie [facility] Respiratory rate 18 /min 18 /min [facility] Oxygen 97 % 97 % [place] saturation in Medical Arterial blood Center by Pulse oximetry Heart rate 89 /min 89 /min [facility] Diastolic blood 75 mm[Hg] 75 mm[Hg] [facility] Systolic blood 144 mm[Hg] 144 mm[Hg] [facility] Body temperature 36.030406 Kaylie 36.011290 Kaylie [facility] Respiratory rate 18 /min 18 /min [facility] Oxygen 97 % 97 % [facility] [place] saturation in [facility] Arterial blood Center by Pulse oximetry Heart rate 71 /min 71 /min [facility] Diastolic blood 96 mm[Hg] 96 mm[Hg] [facility] pressure [facility] Center Systolic blood 136 mm[Hg] 136 mm[Hg] [facility] pressure [facility] Center Heart rate 84 /min 84 /min [facility] Diastolic blood 83 mm[Hg] 83 mm[Hg] [facility] pressure [facility] Center Systolic blood 132 mm[Hg] 132 mm[Hg] [facility] Respiratory rate 18 /min 18 /min [facility] Oxygen 97 % 97 % [facility] saturation in Medical Arterial blood Center by Pulse oximetry Body temperature 36.480406 Kaylie 36.885231 Kaylie [facility] Respiratory rate 18 /min 18 /min [facility] Oxygen 97 % 97 % [facility] saturation in [facility] Arterial blood Center by Pulse oximetry Heart rate 82 /min 82 /min [facility] Diastolic blood 82 mm[Hg] 82 mm[Hg] [facility] Systolic blood 138 mm[Hg] 138 mm[Hg] [facility] Body temperature 36.965274 Kaylie 36.996130 Kaylie [facility] Respiratory rate 18 /min 18 /min [facility] Oxygen 96 % 96 % [facility] saturation in Medical Arterial blood Center by Pulse oximetry Heart rate 95 /min 95 /min [facility] Diastolic blood 84 mm[Hg] 84 mm[Hg] [facility] pressure [facility] Center Systolic blood 155 mm[Hg] 155 mm[Hg] [facility] Body temperature 36.365374 Kaylie 36.714702 Kaylie [facility] Respiratory rate 21 /min 21 /min [facility] Oxygen 98 % 98 % [facility] saturation in Medical Arterial blood Center by Pulse oximetry Heart rate 97 /min 97 /min [facility] Diastolic blood 79 mm[Hg] 79 mm[Hg] [facility] Systolic blood 162 mm[Hg] 162 mm[Hg] [facility] Body weight 90.094382 kg 90.576218 kg [facility] Body temperature 36.324573 Kaylie 36.812280 Kaylie [facility] Respiratory rate 18 /min 18 /min [facility] Oxygen 96 % 96 % [place] saturation in Medical Arterial blood Center by Pulse oximetry Heart rate 92 /min 92 /min [facility] Body height 177.099468 cm 177.350143 cm [facility] Diastolic blood 85 mm[Hg] 85 mm[Hg] [facility] pressure [facility] Center Systolic blood 141 mm[Hg] 141 mm[Hg] [facility] Body mass index 28.6 kg/m2 28.6 kg/m2 [facility] (BMI) [Ratio] [facility] Center Body temperature 36.185614 Kaylie 36.118351 Kaylei [facility] Respiratory rate 20 /min 20 /min [facility] Oxygen 94 % 94 % [facility] [place] saturation in Medical Arterial blood Center by Pulse oximetry Heart rate 96 /min 96 /min [facility] Diastolic blood 85 mm[Hg] 85 mm[Hg] [facility] Systolic blood 125 mm[Hg] 125 mm[Hg] [facility] Body temperature 36.964341 Kaylie 36.601186 Kaylie [facility] Respiratory rate 19 /min 19 /min [facility] Oxygen 93 % 93 % [place] saturation in Medical Arterial blood Center by Pulse oximetry Heart rate 91 /min 91 /min [facility] Diastolic blood 74 mm[Hg] 74 mm[Hg] [facility] Systolic blood 132 mm[Hg] 132 mm[Hg] [facility] Body weight 95.806512 kg 95.162967 kg [facility] Body temperature 36.814307 Kaylie 36.976993 Kaylie [facility] Respiratory rate 17 /min 17 /min [facility] Oxygen 95 % 95 % [place] saturation in Medical Arterial blood Center by Pulse oximetry Heart rate 86 /min 86 /min [facility] Body height 177.509567 cm 177.481899 cm [facility] Diastolic blood 72 mm[Hg] 72 mm[Hg] [facility] Systolic blood 123 mm[Hg] 123 mm[Hg] [facility] Body mass index 30.1 kg/m2 30.1 kg/m2 [facility] (BMI) [Ratio] [facility] Center Body temperature 36.859290 Kaylie 36.809819 Kaylie [facility] Respiratory rate 16 /min 16 /min [facility] Oxygen 93 % 93 % [facility] [place] saturation in [facility] Arterial blood Center by Pulse oximetry Heart rate 103 /min 103 /min [facility] Diastolic blood 67 mm[Hg] 67 mm[Hg] [facility] Systolic blood 123 mm[Hg] 123 mm[Hg] [facility] Body temperature 36.774490 Kaylie 36.311965 Kaylie [facility] Respiratory rate 18 /min 18 /min [facility] Oxygen 98 % 98 % [facility] saturation in Medical Arterial blood Center by Pulse oximetry Heart rate 76 /min 76 /min [facility] Diastolic blood 77 mm[Hg] 77 mm[Hg] [facility] Systolic blood 120 mm[Hg] 120 mm[Hg] [facility] Body temperature 36.148801 Kaylie 36.000644 Kaylie [facility] Respiratory rate 18 /min 18 /min [facility] Oxygen 98 % 98 % [facility] saturation in [facility] Arterial blood Center by Pulse oximetry Heart rate 76 /min 76 /min [facility] Diastolic blood 76 mm[Hg] 76 mm[Hg] [facility] Systolic blood 122 mm[Hg] 122 mm[Hg] [facility] Body temperature 35.341437 Kaylie 35.938499 Kaylie [facility] Respiratory rate 17 /min 17 /min [facility] Oxygen 97 % 97 % [facility] saturation in [facility] Arterial blood Center by Pulse oximetry Heart rate 86 /min 86 /min [facility] Diastolic blood 69 mm[Hg] 69 mm[Hg] [facility] Systolic blood 121 mm[Hg] 121 mm[Hg] [facility] Body temperature 37.970283 Kaylie 37.070673 Kaylie [facility] Respiratory rate 16 /min 16 /min [facility] Oxygen 98 % 98 % [facility] saturation in Medical Arterial blood Center by Pulse oximetry Heart rate 80 /min 80 /min [facility] Diastolic blood 65 mm[Hg] 65 mm[Hg] [facility] pressure [facility] Center Systolic blood 116 mm[Hg] 116 mm[Hg] [facility] Respiratory rate 16 /min 16 /min [facility] Oxygen 97 % 97 % [facility] [place] saturation in Medical Arterial blood Center by Pulse oximetry Heart rate 84 /min 84 /min [facility] Diastolic blood 69 mm[Hg] 69 mm[Hg] [facility] Systolic blood 115 mm[Hg] 115 mm[Hg] [facility] Body temperature 37.845556 Kaylie 37.987153 Kaylie [facility] Oxygen 98 % 98 % [facility] [place] saturation in Medical Arterial blood Center by Pulse oximetry Heart rate 90 /min 90 /min [facility] Diastolic blood 72 mm[Hg] 72 mm[Hg] [facility] Systolic blood 106 mm[Hg] 106 mm[Hg] [facility] Body temperature 36.634806 Kaylie 36.376413 Kaylie [facility] Respiratory rate 19 /min 19 /min [facility] Oxygen 98 % 98 % [facility] [place] saturation in Medical Arterial blood Center by Pulse oximetry Heart rate 86 /min 86 /min [facility] Diastolic blood 55 mm[Hg] 55 mm[Hg] [facility] Systolic blood 91 mm[Hg] 91 mm[Hg] [facility] Body temperature 37.035280 Kaylie 37.437205 Kaylie [facility] Respiratory rate 18 /min 18 /min [facility] Oxygen 95 % 95 % [facility] [place] saturation in Medical Arterial blood Center by Pulse oximetry Heart rate 95 /min 95 /min [facility] Diastolic blood 79 mm[Hg] 79 mm[Hg] [facility] Systolic blood 122 mm[Hg] 122 mm[Hg] [facility] Body weight 105.501465 kg 105.922052 kg [facility] Body temperature 37.190822 Kaylie 37.950114 Kaylie [facility] Respiratory rate 20 /min 20 /min [facility] Oxygen 94 % 94 % [facility] saturation in Medical Arterial blood Center by Pulse oximetry Heart rate 83 /min 83 /min [facility] Body height 175.441643 cm 175.130780 cm [facility] Diastolic blood 85 mm[Hg] 85 mm[Hg] [facility] Systolic blood 134 mm[Hg] 134 mm[Hg] [facility] Body mass index 34.2 kg/m2 34.2 kg/m2 [facility] (BMI) [Ratio] Medical Center Body weight 81.019795 kg 81.025918 kg [facility] Measured [facility] Body temperature 36.567841 Kaylie 36.959787 Kaylie [facility] Respiratory rate 18 /min 18 /min [facility] Oxygen 96 % 96 % [facility] [place] saturation in Medical Arterial blood Center by Pulse oximetry Heart rate 86 /min 86 /min [facility] Body height 172.747070 cm 172.151560 cm [facility] Diastolic blood 85 mm[Hg] 85 mm[Hg] [facility] Systolic blood 138 mm[Hg] 138 mm[Hg] [facility] Body mass index 27.3 kg/m2 27.3 kg/m2 [facility] (BMI) [Ratio] [facility] Center Body temperature 36.024614 Kaylie 36.431743 Kaylie [facility] Respiratory rate 17 /min 17 /min [facility] Oxygen 98 % 98 % [facility] saturation in Medical Arterial blood Center by Pulse oximetry Heart rate 81 /min 81 /min [facility] Diastolic blood 71 mm[Hg] 71 mm[Hg] [facility] Systolic blood 128 mm[Hg] 128 mm[Hg] [facility] Body temperature 36.977454 Kaylie 36.346347 Kaylie [facility] Respiratory rate 17 /min 17 /min [facility] Oxygen 95 % 95 % [facility] saturation in Medical Arterial blood Center by Pulse oximetry Heart rate 101 /min 101 /min [facility] Diastolic blood 78 mm[Hg] 78 mm[Hg] [facility] Systolic blood 128 mm[Hg] 128 mm[Hg] [facility] Body temperature 41.800612 Kaylie 41.081067 Kaylie [facility] Respiratory rate 18 /min 18 /min [facility] Oxygen 92 % 92 % [facility] saturation in Medical Arterial blood Center by Pulse oximetry Heart rate 117 /min 117 /min [facility] Diastolic blood 77 mm[Hg] 77 mm[Hg] [facility] pressure [facility] Center Systolic blood 130 mm[Hg] 130 mm[Hg] [facility] Body temperature 37.909243 Kaylie 37.664484 Kaylie [facility] Respiratory rate 18 /min 18 /min [facility] Oxygen 98 % 98 % [facility] saturation in Medical Arterial blood Center by Pulse oximetry Heart rate 89 /min 89 /min [facility] Diastolic blood 85 mm[Hg] 85 mm[Hg] [facility] pressure [facility] Center Systolic blood 142 mm[Hg] 142 mm[Hg] [facility] Body weight 110.400356 kg 110.329327 kg [facility] Body temperature 36.735759 Kaylie 36.370849 Kaylie [facility] Respiratory rate 18 /min 18 /min [facility] Oxygen 98 % 98 % [place] saturation in Medical Arterial blood Center by Pulse oximetry Heart rate 88 /min 88 /min [facility] Body height 182.092860 cm 182.311003 cm [facility] Diastolic blood 98 mm[Hg] 98 mm[Hg] [facility] pressure [facility] Center Systolic blood 138 mm[Hg] 138 mm[Hg] [facility] Body mass index 32.8 kg/m2 32.8 kg/m2 [facility] (BMI) [Ratio] [facility] Center Body temperature 36.371675 Kaylie 36.704632 Kaylie [facility] Respiratory rate 17 /min 17 /min [facility] Oxygen 95 % 95 % [place] saturation in Medical Arterial blood Center by Pulse oximetry Heart rate 96 /min 96 /min [facility] Diastolic blood 74 mm[Hg] 74 mm[Hg] [facility] pressure [facility] Center Systolic blood 126 mm[Hg] 126 mm[Hg] [facility] Body temperature 36.849454 Kaylie 36.471835 Kaylie [facility] Respiratory rate 18 /min 18 /min [facility] Oxygen 100 % 100 % [facility] saturation in Medical Arterial blood Center by Pulse oximetry Heart rate 85 /min 85 /min [facility] Diastolic blood 80 mm[Hg] 80 mm[Hg] [facility] pressure [facility] Center Systolic blood 146 mm[Hg] 146 mm[Hg] [facility] Body temperature 36.836026 Kaylie 36.819543 Kaylie [facility] Respiratory rate 18 /min 18 /min [facility] Oxygen 98 % 98 % [facility] saturation in Medical Arterial blood Center by Pulse oximetry Heart rate 80 /min 80 /min [facility] Diastolic blood 60 mm[Hg] 60 mm[Hg] [facility] pressure [facility] Center Systolic blood 96 mm[Hg] 96 mm[Hg] [facility] Body temperature 36.862196 Kaylie 36.190729 Kaylie [facility] Respiratory rate 18 /min 18 /min [facility] Oxygen 98 % 98 % [place] saturation in [facility] by Pulse oximetry Heart rate 83 /min 83 /min [facility] Diastolic blood 68 mm[Hg] 68 mm[Hg] [facility] pressure Medical Center Systolic blood 128 mm[Hg] 128 mm[Hg] [facility] Body mass index 29.8 kg/m2 29.8 kg/m2 [facility] (BMI) [Ratio] Medical Center Body weight 100.889483 kg 100.297224 kg [facility] Body temperature 36.064645 Kaylie 36.623917 Kaylie [facility] Respiratory rate 18 /min 18 /min [facility] Oxygen 98 % 98 % [place] saturation in Medical Arterial blood Center by Pulse oximetry Heart rate 84 /min 84 /min [facility] Body height 182.052804 cm 182.949083 cm [facility] Diastolic blood 88 mm[Hg] 88 mm[Hg] [facility] pressure Medical Center Systolic blood 148 mm[Hg] 148 mm[Hg] [facility] Body temperature 36.419775 Kaylie 36.348202 Kaylie [facility] Respiratory rate 17 /min 17 /min [facility] Oxygen 99 % 99 % [place] saturation in Medical Arterial blood Center by Pulse oximetry Heart rate 80 /min 80 /min [facility] Diastolic blood 79 mm[Hg] 79 mm[Hg] [facility] pressure Medical Center Systolic blood 126 mm[Hg] 126 mm[Hg] [facility] Body temperature 36.173335 Kaylie 36.467855 Kaylie [facility] Respiratory rate 17 /min 17 /min [facility] Oxygen 99 % 99 % [place] saturation in Medical Arterial blood Center by Pulse oximetry Heart rate 85 /min 85 /min [facility] Diastolic blood 74 mm[Hg] 74 mm[Hg] [facility] Systolic blood 136 mm[Hg] 136 mm[Hg] [facility] Body temperature 36.869959 Kaylie 36.748864 Kaylie [facility] Respiratory rate 18 /min 18 /min [facility] Oxygen 98 % 98 % [place] saturation in Medical Arterial blood Center by Pulse oximetry Heart rate 97 /min 97 /min [facility] Diastolic blood 70 mm[Hg] 70 mm[Hg] [facility] Systolic blood 126 mm[Hg] 126 mm[Hg] [facility] Body temperature 36.660252 Kaylie 36.821672 Kaylie [facility] Respiratory rate 19 /min 19 /min [facility] Oxygen 97 % 97 % [place] saturation in Medical Arterial blood Center by Pulse oximetry Heart rate 79 /min 79 /min [facility] Diastolic blood 78 mm[Hg] 78 mm[Hg] [facility] Systolic blood 135 mm[Hg] 135 mm[Hg] [facility] Respiratory rate 18 /min 18 /min [facility] Oxygen 93 % 93 % [place] saturation in Medical Arterial blood Center by Pulse oximetry Heart rate 89 /min 89 /min [facility] Body height 177.512144 cm 177.184422 cm [facility] Diastolic blood 75 mm[Hg] 75 mm[Hg] [facility] Systolic blood 104 mm[Hg] 104 mm[Hg] [facility] Body mass index 37.9 kg/m2 37.9 kg/m2 [facility] (BMI) [Ratio] Medical Center Body weight 120.744283 kg 120.898859 kg [facility] Body temperature 36.737523 Kaylie 36.194588 Kaylie [facility] Body temperature 36.404756 Kaylie 36.858055 Kaylie [facility] Respiratory rate 17 /min 17 /min [facility] Oxygen 95 % 95 % [place] saturation in Medical Arterial blood Center by Pulse oximetry Heart rate 94 /min 94 /min [facility] Diastolic blood 62 mm[Hg] 62 mm[Hg] [facility] Systolic blood 115 mm[Hg] 115 mm[Hg] [facility] Body temperature 36.148025 Kaylie 36.728613 Kaylie [facility] Respiratory rate 18 /min 18 /min [facility] Oxygen 96 % 96 % [place] saturation in Medical Arterial blood Center by Pulse oximetry Heart rate 91 /min 91 /min [facility] Diastolic blood 77 mm[Hg] 77 mm[Hg] [facility] Systolic blood 131 mm[Hg] 131 mm[Hg] [facility] Body temperature 37.845078 Kaylie 37.606632 Kaylie [facility] Respiratory rate 19 /min 19 /min [facility] Oxygen 97 % 97 % [place] saturation in Medical Arterial blood Center by Pulse oximetry Heart rate 105 /min 105 /min [facility] Diastolic blood 74 mm[Hg] 74 mm[Hg] [facility] Systolic blood 122 mm[Hg] 122 mm[Hg] [facility] Body temperature 37.038321 Kaylie 37.670519 Kaylie [facility] Respiratory rate 20 /min 20 /min [facility] Oxygen 93 % 93 % [place] saturation in Medical Arterial blood Center by Pulse oximetry Heart rate 117 /min 117 /min [facility] Diastolic blood 58 mm[Hg] 58 mm[Hg] [facility] Systolic blood 108 mm[Hg] 108 mm[Hg] [facility] Body temperature 36.293642 Kaylie 36.380537 Kaylie [facility] Oxygen 90 % 90 % [place] saturation in Medical Arterial blood Center by Pulse oximetry Heart rate 112 /min 112 /min [facility] Diastolic blood 54 mm[Hg] 54 mm[Hg] [facility] Systolic blood 117 mm[Hg] 117 mm[Hg] [facility] Body weight 117.559509 kg 117.368389 kg [facility] Body temperature 36.917607 Kaylie 36.253582 Kaylie [facility] Respiratory rate 18 /min 18 /min [facility] Oxygen 99 % 99 % [place] saturation in Medical Arterial blood Center by Pulse oximetry Heart rate 89 /min 89 /min [facility] Body height 182.760658 cm 182.166596 cm [facility] Diastolic blood 84 mm[Hg] 84 mm[Hg] [facility] pressure Medical Center Systolic blood 142 mm[Hg] 142 mm[Hg] [facility] Body mass index 35.2 kg/m2 35.2 kg/m2 [facility] (BMI) [Ratio] Medical Center Body temperature 36.051380 Kaylie 36.721367 Kaylie [facility] Respiratory rate 16 /min 16 /min [facility] Oxygen 98 % 98 % [place] saturation in Medical Arterial blood Center by Pulse oximetry Heart rate 79 /min 79 /min [facility] Diastolic blood 94 mm[Hg] 94 mm[Hg] [facility] Systolic blood 149 mm[Hg] 149 mm[Hg] [facility] Body temperature 36.049977 Kaylie 36.662190 Kaylie [facility] Respiratory rate 16 /min 16 /min [facility] Oxygen 95 % 95 % [place] saturation in Medical Arterial blood Center by Pulse oximetry Heart rate 83 /min 83 /min [facility] Diastolic blood 74 mm[Hg] 74 mm[Hg] [facility] Systolic blood 156 mm[Hg] 156 mm[Hg] [facility] Body temperature 36.286984 Kaylie 36.645204 Kaylie [facility] Respiratory rate 20 /min 20 /min [facility] Oxygen 96 % 96 % [place] saturation in Medical Arterial blood Center by Pulse oximetry Heart rate 85 /min 85 /min [facility] Diastolic blood 83 mm[Hg] 83 mm[Hg] [facility] Systolic blood 142 mm[Hg] 142 mm[Hg] [facility] Body temperature 36.721909 Kaylie 36.746209 Kaylie [facility] Respiratory rate 20 /min 20 /min [facility] Oxygen 97 % 97 % [facility] saturation in Medical Arterial blood Center by Pulse oximetry Heart rate 107 /min 107 /min [facility] Diastolic blood 104 mm[Hg] 104 mm[Hg] [facility] pressure Medical Center Systolic blood 164 mm[Hg] 164 mm[Hg] [facility] Body temperature 36.988009 Kaylie 36.436991 Kaylie [facility] Respiratory rate 20 /min 20 /min [facility] Oxygen 97 % 97 % [facility] saturation in Medical Arterial blood Center by Pulse oximetry Heart rate 90 /min 90 /min [facility] Diastolic blood 78 mm[Hg] 78 mm[Hg] [facility] Systolic blood 140 mm[Hg] 140 mm[Hg] [facility] Body weight 99.016988 kg 99.965424 kg [facility] Body temperature 36.060660 Kaylie 36.392746 Kaylie [facility] Respiratory rate 17 /min 17 /min [facility] Oxygen 95 % 95 % [facility] saturation in Medical Arterial blood Center by Pulse oximetry Heart rate 92 /min 92 /min [facility] Body height 177.821372 cm 177.907653 cm [facility] Diastolic blood 78 mm[Hg] 78 mm[Hg] [facility] pressure Medical Center Systolic blood 138 mm[Hg] 138 mm[Hg] [facility] Body mass index 31.5 kg/m2 31.5 kg/m2 [facility] (BMI) [Ratio] Medical Center Body temperature 36.851788 Kaylie 36.913294 Kaylie [facility] Respiratory rate 17 /min 17 /min [facility] Oxygen 98 % 98 % [facility] saturation in Medical Arterial blood Center by Pulse oximetry Heart rate 75 /min 75 /min [facility] Diastolic blood 68 mm[Hg] 68 mm[Hg] [facility] pressure Medical Center Systolic blood 129 mm[Hg] 129 mm[Hg] [facility] Body temperature 36.854716 Kaylie 36.278828 Kaylie [facility] Respiratory rate 17 /min 17 /min [facility] Oxygen 99 % 99 % [place] saturation in Medical Arterial blood Center by Pulse oximetry Heart rate 81 /min 81 /min [facility] Diastolic blood 79 mm[Hg] 79 mm[Hg] [facility] pressure Medical Center Systolic blood 143 mm[Hg] 143 mm[Hg] [facility] Body temperature 36.261453 Kaylie 36.530353 Kaylie [facility] Respiratory rate 17 /min 17 /min [facility] Oxygen 99 % 99 % [place] saturation in Medical Arterial blood Center by Pulse oximetry Heart rate 88 /min 88 /min [facility] Diastolic blood 76 mm[Hg] 76 mm[Hg] [facility] Systolic blood 145 mm[Hg] 145 mm[Hg] [facility] Body temperature 36.162587 Kaylie 36.480350 Kaylie [facility] Respiratory rate 18 /min 18 /min [facility] Oxygen 98 % 98 % [place] saturation in Medical Arterial blood Center by Pulse oximetry Heart rate 76 /min 76 /min [facility] Diastolic blood 75 mm[Hg] 75 mm[Hg] [facility] pressure Medical Center Systolic blood 122 mm[Hg] 122 mm[Hg] [facility] Body temperature 37.387743 Kaylie 37.246201 Kaylie [facility] Respiratory rate 18 /min 18 /min [facility] Oxygen 97 % 97 % [place] saturation in Medical Arterial blood Center by Pulse oximetry Heart rate 89 /min 89 /min [facility] Diastolic blood 78 mm[Hg] 78 mm[Hg] [facility] Systolic blood 146 mm[Hg] 146 mm[Hg] [facility] Body temperature 36.549549 Kaylie 36.287362 Kaylie [facility] Respiratory rate 18 /min 18 /min [facility] Oxygen 98 % 98 % [place] saturation in Medical Arterial blood Center by Pulse oximetry Heart rate 82 /min 82 /min [facility] Diastolic blood 80 mm[Hg] 80 mm[Hg] [facility] Systolic blood 134 mm[Hg] 134 mm[Hg] [facility] Body temperature 37.261539 Kaylie 37.920241 Kaylie [facility] Respiratory rate 18 /min 18 /min [facility] Oxygen 99 % 99 % [place] saturation in Medical Arterial blood Center by Pulse oximetry Heart rate 86 /min 86 /min [facility] Diastolic blood 85 mm[Hg] 85 mm[Hg] [facility] Systolic blood 142 mm[Hg] 142 mm[Hg] [facility] Body weight 119.987190 kg 119.633414 kg [facility] Body temperature 36.636176 Kaylie 36.804961 Kaylie [facility] Respiratory rate 18 /min 18 /min [facility] Oxygen 97 % 97 % [place] saturation in Medical Arterial blood Center by Pulse oximetry Heart rate 83 /min 83 /min [facility] Diastolic blood 69 mm[Hg] 69 mm[Hg] [facility] Systolic blood 115 mm[Hg] 115 mm[Hg] [facility] Body weight 120.327763 kg 120.406179 kg [facility] Body temperature 37.524196 Kaylie 37.906599 Kaylie [facility] Respiratory rate 18 /min 18 /min [facility] Oxygen 98 % 98 % [place] saturation in Medical Arterial blood Center by Pulse oximetry Heart rate 88 /min 88 /min [facility] Body height 182.463145 cm 182.348813 cm [facility] Diastolic blood 88 mm[Hg] 88 mm[Hg] [facility] Systolic blood 148 mm[Hg] 148 mm[Hg] [facility] Body mass index 35.8 kg/m2 35.8 kg/m2 [facility] (BMI) [Ratio] Medical Center Body temperature 36.478687 Kaylie 36.542469 Kaylie [facility] Respiratory rate 17 /min 17 /min [facility] Oxygen 97 % 97 % [place] saturation in Medical Arterial blood Center by Pulse oximetry Heart rate 75 /min 75 /min [facility] Diastolic blood 71 mm[Hg] 71 mm[Hg] [facility] Systolic blood 145 mm[Hg] 145 mm[Hg] [facility] Body temperature 36.837632 Kaylie 36.095985 Kaylie [facility] Respiratory rate 19 /min 19 /min [facility] Oxygen 97 % 97 % [place] saturation in Medical Arterial blood Center by Pulse oximetry Heart rate 88 /min 88 /min [facility] Diastolic blood 76 mm[Hg] 76 mm[Hg] [facility] pressure Medical Center Systolic blood 150 mm[Hg] 150 mm[Hg] [facility] Body temperature 36.095169 Kaylie 36.154316 Kaylie [facility] Respiratory rate 17 /min 17 /min [facility] Oxygen 98 % 98 % [place] saturation in Medical Arterial blood Center by Pulse oximetry Heart rate 71 /min 71 /min [facility] Diastolic blood 68 mm[Hg] 68 mm[Hg] [facility] Systolic blood 129 mm[Hg] 129 mm[Hg] [facility] Body temperature 36.720786 Kaylie 36.836841 Kaylie [facility] Respiratory rate 17 /min 17 /min [facility] Oxygen 97 % 97 % [place] saturation in Medical Arterial blood Center by Pulse oximetry Heart rate 75 /min 75 /min [facility] Diastolic blood 62 mm[Hg] 62 mm[Hg] [facility] Systolic blood 133 mm[Hg] 133 mm[Hg] [facility] Body temperature 36.607627 Kaylie 36.798849 Kaylie [facility] Respiratory rate 17 /min 17 /min [facility] Oxygen 99 % 99 % [place] saturation in Medical Arterial blood Center by Pulse oximetry Heart rate 80 /min 80 /min [facility] Diastolic blood 92 mm[Hg] 92 mm[Hg] [facility] Systolic blood 144 mm[Hg] 144 mm[Hg] [facility] Body temperature 36.748090 Kaylie 36.529110 Kaylie [facility] Respiratory rate 18 /min 18 /min [facility] Oxygen 97 % 97 % [place] saturation in Medical Arterial blood Center by Pulse oximetry Heart rate 89 /min 89 /min [facility] Diastolic blood 88 mm[Hg] 88 mm[Hg] [facility] Systolic blood 148 mm[Hg] 148 mm[Hg] [facility] Body temperature 36.164085 Kaylie 36.479836 Kaylie [facility] Respiratory rate 17 /min 17 /min [facility] Oxygen 97 % 97 % [place] saturation in Medical Arterial blood Center by Pulse oximetry Heart rate 81 /min 81 /min [facility] Diastolic blood 79 mm[Hg] 79 mm[Hg] [facility] Systolic blood 133 mm[Hg] 133 mm[Hg] [facility] Body temperature 36.025814 Kaylie 36.718712 Kaylie [facility] Respiratory rate 17 /min 17 /min [facility] Oxygen 98 % 98 % [place] saturation in Medical Arterial blood Center by Pulse oximetry Heart rate 87 /min 87 /min [facility] Diastolic blood 88 mm[Hg] 88 mm[Hg] [facility] Systolic blood 136 mm[Hg] 136 mm[Hg] [facility] Body temperature 36.084707 Kaylie 36.674580 Kaylie [facility] Respiratory rate 18 /min 18 /min [facility] Oxygen 97 % 97 % [place] saturation in Medical Arterial blood Center by Pulse oximetry Heart rate 95 /min 95 /min [facility] Diastolic blood 84 mm[Hg] 84 mm[Hg] [facility] Systolic blood 149 mm[Hg] 149 mm[Hg] [facility] Body temperature 36.455166 Kaylie 36.741675 Kaylie [facility] Respiratory rate 17 /min 17 /min [facility] Oxygen 99 % 99 % [place] saturation in Medical Arterial blood Center by Pulse oximetry Heart rate 81 /min 81 /min [facility] Diastolic blood 76 mm[Hg] 76 mm[Hg] [facility] Systolic blood 124 mm[Hg] 124 mm[Hg] [facility] Body weight 110.435693 kg 110.840156 kg [facility] Body temperature 36.125946 Kaylie 36.375329 Kaylie [facility] Respiratory rate 18 /min 18 /min [facility] Oxygen 98 % 98 % [place] saturation in Medical Arterial blood Center by Pulse oximetry Heart rate 78 /min 78 /min [facility] Body height 185.596716 cm 185.796809 cm [facility] Diastolic blood 78 mm[Hg] 78 mm[Hg] [facility] pressure Medical Center Systolic blood 138 mm[Hg] 138 mm[Hg] [facility] Body mass index 31.9 kg/m2 31.9 kg/m2 [facility] (BMI) [Ratio] Medical Center Body weight 113.516213 kg 113.412350 kg [facility] Body temperature 37.493350 Kaylie 37.914456 Kaylie [facility] Respiratory rate 18 /min 18 /min [facility] Oxygen 100 % 100 % [place] saturation in Medical Arterial blood Center by Pulse oximetry Heart rate 95 /min 95 /min [facility] Body height 175.200976 cm 175.492364 cm [facility] Diastolic blood 83 mm[Hg] 83 mm[Hg] [facility] Systolic blood 148 mm[Hg] 148 mm[Hg] [facility] Body mass index 36.9 kg/m2 36.9 kg/m2 [facility] (BMI) [Ratio] Medical Center Body weight 105.004942 kg 105.370140 kg [facility] Body temperature 36.912187 Kaylie 36.064334 Kaylie [facility] Respiratory rate 18 /min 18 /min [facility] Oxygen 93 % 93 % [place] saturation in Medical Arterial blood Center by Pulse oximetry Heart rate 88 /min 88 /min [facility] Body height 173.832809 cm 173.550135 cm [facility] Diastolic blood 88 mm[Hg] 88 mm[Hg] [facility] Systolic blood 140 mm[Hg] 140 mm[Hg] [facility] Body mass index 35.0 kg/m2 35.0 kg/m2 [facility] (BMI) [Ratio] Medical Center Body temperature 37.518588 Kaylie 37.280781 Kaylie [facility] Respiratory rate 18 /min 18 /min [facility] Oxygen 95 % 95 % [place] saturation in Medical Arterial blood Center by Pulse oximetry Heart rate 97 /min 97 /min [facility] Diastolic blood 78 mm[Hg] 78 mm[Hg] [facility] pressure [facility] Center Systolic blood 132 mm[Hg] 132 mm[Hg] [facility] Body temperature 37.273651 Kaylie 37.668117 Kaylie [facility] Respiratory rate 18 /min 18 /min [facility] Oxygen 95 % 95 % [place] saturation in Medical Arterial blood Center by Pulse oximetry Heart rate 96 /min 96 /min [facility] Diastolic blood 77 mm[Hg] 77 mm[Hg] [facility] pressure Medical Center Systolic blood 129 mm[Hg] 129 mm[Hg] [facility] pressure [facility] Center Systolic blood 101 mm[Hg] 101 mm[Hg] [facility] Body temperature 37.178611 Kaylie 37.756042 Kaylie [facility] Respiratory rate 17 /min 17 /min [facility] Oxygen 95 % 95 % [place] saturation in Medical Arterial blood Center by Pulse oximetry Heart rate 96 /min 96 /min [facility] Diastolic blood 57 mm[Hg] 57 mm[Hg] [facility] Body temperature 36.478418 Kaylie 36.479114 Kaylie [facility] Respiratory rate 17 /min 17 /min [facility] Oxygen 98 % 98 % [place] saturation in Medical Arterial blood Center by Pulse oximetry Heart rate 71 /min 71 /min [facility] Diastolic blood 68 mm[Hg] 68 mm[Hg] [facility] Systolic blood 137 mm[Hg] 137 mm[Hg] [facility] Body temperature 36.232806 Kaylie 36.790063 Kaylie [facility] Respiratory rate 17 /min 17 /min [facility] Oxygen 98 % 98 % [place] saturation in Medical Arterial blood Center by Pulse oximetry Heart rate 73 /min 73 /min [facility] Diastolic blood 62 mm[Hg] 62 mm[Hg] [facility] Systolic blood 133 mm[Hg] 133 mm[Hg] [facility] Body temperature 36.791057 Kaylie 36.730802 Kaylie [facility] Respiratory rate 18 /min 18 /min [facility] Oxygen 99 % 99 % [place] saturation in Medical Arterial blood Center by Pulse oximetry Heart rate 78 /min 78 /min [facility] Diastolic blood 81 mm[Hg] 81 mm[Hg] [facility] pressure Medical Center Systolic blood 158 mm[Hg] 158 mm[Hg] [facility] Body weight 150.413071 kg 150.920272 kg [facility] Body temperature 36.852092 Kaylie 36.310101 Kaylie [facility] Respiratory rate 16 /min 16 /min [facility] Oxygen 98 % 98 % [place] saturation in Medical Arterial blood Center by Pulse oximetry Heart rate 93 /min 93 /min [facility] Body height 177.664462 cm 177.437330 cm [facility] Diastolic blood 92 mm[Hg] 92 mm[Hg] [facility] pressure Medical Center Systolic blood 140 mm[Hg] 140 mm[Hg] [facility] Body mass index 47.4 kg/m2 47.4 kg/m2 [facility] (BMI) [Ratio] Medical Center Body weight 68.445167 kg 68.512188 kg [facility] [facility] Body temperature 36.112341 Kaylie 36.961580 Kaylie [facility] Respiratory rate 18 /min 18 /min [facility] Oxygen 93 % 93 % [place] saturation in Medical Arterial blood Center by Pulse oximetry Heart rate 93 /min 93 /min [facility] Diastolic blood 87 mm[Hg] 87 mm[Hg] [facility] Systolic blood 160 mm[Hg] 160 mm[Hg] [facility] Body temperature 36.813910 Kaylie 36.244168 Kaylie [facility] Respiratory rate 19 /min 19 /min [facility] Oxygen 97 % 97 % [place] saturation in Medical Arterial blood Center by Pulse oximetry Heart rate 88 /min 88 /min [facility] Diastolic blood 80 mm[Hg] 80 mm[Hg] [facility] pressure Medical Center Systolic blood 150 mm[Hg] 150 mm[Hg] [facility] Body temperature 36.684715 Kaylie 36.521584 Kaylie [facility] Respiratory rate 17 /min 17 /min [facility] Oxygen 97 % 97 % [place] saturation in Medical Arterial blood Center by Pulse oximetry Heart rate 75 /min 75 /min [facility] Diastolic blood 68 mm[Hg] 68 mm[Hg] [facility] pressure Medical Center Systolic blood 134 mm[Hg] 134 mm[Hg] [facility] Body temperature 36.903901 Kaylie 36.971220 Kaylie [facility] Respiratory rate 18 /min 18 /min [facility] Oxygen 96 % 96 % [facility] [place] saturation in Medical Arterial blood Center by Pulse oximetry Heart rate 85 /min 85 /min [facility] Diastolic blood 82 mm[Hg] 82 mm[Hg] [facility] Systolic blood 138 mm[Hg] 138 mm[Hg] [facility] Body temperature 36.924675 Kaylie 36.529481 Kaylie [facility] Respiratory rate 18 /min 18 /min [facility] Oxygen 97 % 97 % [facility] [place] saturation in Medical Arterial blood Center by Pulse oximetry Heart rate 88 /min 88 /min [facility] Diastolic blood 72 mm[Hg] 72 mm[Hg] [facility] Systolic blood 137 mm[Hg] 137 mm[Hg] [facility] Body temperature 37.325318 Kaylie 37.545864 Kaylie [facility] Respiratory rate 18 /min 18 /min [facility] Oxygen 93 % 93 % [facility] [place] saturation in Medical Arterial blood Center by Pulse oximetry Heart rate 94 /min 94 /min [facility] Diastolic blood 70 mm[Hg] 70 mm[Hg] [facility] Systolic blood 132 mm[Hg] 132 mm[Hg] [facility] Body temperature 36.369266 Kaylie 36.649749 Kaylie [facility] Respiratory rate 18 /min 18 /min [facility] Oxygen 97 % 97 % [facility] [place] saturation in Medical Arterial blood Center by Pulse oximetry Heart rate 76 /min 76 /min [facility] Diastolic blood 76 mm[Hg] 76 mm[Hg] [facility] Systolic blood 144 mm[Hg] 144 mm[Hg] [facility] Body temperature 36.608036 Kaylie 36.676751 Kaylie [facility] Respiratory rate 19 /min 19 /min [facility] Oxygen 97 % 97 % [place] saturation in Medical Arterial blood Center by Pulse oximetry Heart rate 77 /min 77 /min [facility] Diastolic blood 86 mm[Hg] 86 mm[Hg] [facility] pressure Medical Center Systolic blood 153 mm[Hg] 153 mm[Hg] [facility] Body temperature 36.115330 Kaylie 36.781314 Kaylie [facility] Respiratory rate 17 /min 17 /min [facility] Oxygen 98 % 98 % [place] saturation in Medical Arterial blood Center by Pulse oximetry Heart rate 75 /min 75 /min [facility] Diastolic blood 75 mm[Hg] 75 mm[Hg] [facility] Center Systolic blood 129 mm[Hg] 129 mm[Hg] [facility] Body temperature 37.838728 Kaylie 37.846455 Kaylie [facility] Respiratory rate 18 /min 18 /min [facility] Oxygen 97 % 97 % [place] saturation in Medical Arterial blood Center by Pulse oximetry Heart rate 76 /min 76 /min [facility] Diastolic blood 77 mm[Hg] 77 mm[Hg] [facility] Center Systolic blood 130 mm[Hg] 130 mm[Hg] [facility] Body temperature 36.708116 Kaylie 36.289707 Kaylie [facility] Respiratory rate 17 /min 17 /min [facility] Oxygen 98 % 98 % [place] saturation in Medical Arterial blood Center by Pulse oximetry Heart rate 78 /min 78 /min [facility] Diastolic blood 68 mm[Hg] 68 mm[Hg] [facility] pressure Medical Center Systolic blood 129 mm[Hg] 129 mm[Hg] [facility] Body temperature 36.817380 Kaylie 36.745638 Kaylie [facility] Respiratory rate 19 /min 19 /min [facility] Oxygen 98 % 98 % [place] saturation in Medical Arterial blood Center by Pulse oximetry Heart rate 92 /min 92 /min [facility] Diastolic blood 64 mm[Hg] 64 mm[Hg] [facility] pressure Medical Center Systolic blood 125 mm[Hg] 125 mm[Hg] [facility] Body temperature 36.493545 Kaylie 36.786102 Kaylie [facility] Respiratory rate 20 /min 20 /min [facility] Oxygen 98 % 98 % [place] saturation in Medical Arterial blood Center by Pulse oximetry Heart rate 93 /min 93 /min [facility] Diastolic blood 92 mm[Hg] 92 mm[Hg] [facility] pressure Medical Center Systolic blood 150 mm[Hg] 150 mm[Hg] [facility] Body temperature 36.599526 Kaylie 36.394130 Kaylie [facility] Respiratory rate 18 /min 18 /min [facility] Oxygen 97 % 97 % [place] saturation in Medical Arterial blood Center by Pulse oximetry Heart rate 79 /min 79 /min [facility] Diastolic blood 78 mm[Hg] 78 mm[Hg] [facility] Systolic blood 138 mm[Hg] 138 mm[Hg] [facility] Body temperature 36.891187 Kaylie 36.436269 Kaylie [facility] Respiratory rate 17 /min 17 /min [facility] Oxygen 95 % 95 % [place] saturation in Medical Arterial blood Center by Pulse oximetry Heart rate 72 /min 72 /min [facility] Diastolic blood 67 mm[Hg] 67 mm[Hg] [facility] pressure Medical Center Systolic blood 134 mm[Hg] 134 mm[Hg] [facility] Body temperature 36.129465 Kaylie 36.330391 Kaylie [facility] Respiratory rate 19 /min 19 /min [facility] Oxygen 95 % 95 % [place] saturation in Medical Arterial blood Center by Pulse oximetry Heart rate 68 /min 68 /min [facility] Diastolic blood 68 mm[Hg] 68 mm[Hg] [facility] Center Systolic blood 144 mm[Hg] 144 mm[Hg] [facility] Body temperature 36.538254 Kaylie 36.561511 Kaylie [facility] Respiratory rate 17 /min 17 /min [facility] Oxygen 96 % 96 % [place] saturation in Medical Arterial blood Center by Pulse oximetry Heart rate 78 /min 78 /min [facility] Diastolic blood 76 mm[Hg] 76 mm[Hg] [facility] Center Systolic blood 140 mm[Hg] 140 mm[Hg] [facility] Body weight 99.410936 kg 99.081024 kg [facility] Body temperature 36.780862 Kaylie 36.127267 Kaylie [facility] Respiratory rate 19 /min 19 /min [facility] Oxygen 98 % 98 % [place] saturation in Medical Arterial blood Center by Pulse oximetry Heart rate 88 /min 88 /min [facility] Body height 177.844560 cm 177.129800 cm [facility] Diastolic blood 82 mm[Hg] 82 mm[Hg] [facility] Center Systolic blood 148 mm[Hg] 148 mm[Hg] [facility] Body mass index 31.5 kg/m2 31.5 kg/m2 [facility] (BMI) [Ratio] Medical Center Body temperature 36.217947 Kaylie 36.185846 Kaylie [facility] Respiratory rate 17 /min 17 /min [facility] Oxygen 98 % 98 % [facility] [place] saturation in Medical Arterial blood Center by Pulse oximetry Heart rate 94 /min 94 /min [facility] Diastolic blood 90 mm[Hg] 90 mm[Hg] [facility] Systolic blood 160 mm[Hg] 160 mm[Hg] [facility] Respiratory rate 18 /min 18 /min [facility] Oxygen 98 % 98 % [place] saturation in Medical Arterial blood Center by Pulse oximetry Heart rate 85 /min 85 /min [facility] Diastolic blood 85 mm[Hg] 85 mm[Hg] [facility] Systolic blood 142 mm[Hg] 142 mm[Hg] [facility] Body temperature 37.182596 Kaylie 37.283433 Kaylie [facility] Body weight 110.435432 kg 110.944620 kg [facility] Body temperature 36.817210 Kaylie 36.891939 Kaylie [facility] Respiratory rate 18 /min 18 /min [facility] Oxygen 98 % 98 % [place] saturation in Medical Arterial blood Center by Pulse oximetry Heart rate 84 /min 84 /min [facility] Body height 182.806508 cm 182.734121 cm [facility] Diastolic blood 58 mm[Hg] 58 mm[Hg] [facility] pressure [facility] Center Systolic blood 148 mm[Hg] 148 mm[Hg] [facility] Body mass index 32.8 kg/m2 32.8 kg/m2 [facility] (BMI) [Ratio] Medical Center Body temperature 36.287364 Kaylie 36.989113 Kaylie [facility] Respiratory rate 18 /min 18 /min [facility] Oxygen 97 % 97 % [place] saturation in Medical Arterial blood Center by Pulse oximetry Heart rate 118 /min 118 /min [facility] Diastolic blood 58 mm[Hg] 58 mm[Hg] [facility] Center Systolic blood 120 mm[Hg] 120 mm[Hg] [facility] Body temperature 36.640864 Kaylie 36.713315 Kaylie [facility] Respiratory rate 20 /min 20 /min [facility] Oxygen 96 % 96 % [place] saturation in Medical Arterial blood Center by Pulse oximetry Heart rate 143 /min 143 /min [facility] Diastolic blood 40 mm[Hg] 40 mm[Hg] [facility] Systolic blood 119 mm[Hg] 119 mm[Hg] [facility] Respiratory rate 20 /min 20 /min [facility] Oxygen 98 % 98 % [facility] [place] saturation in Medical Arterial blood Center by Pulse oximetry Heart rate 92 /min 92 /min [facility] Diastolic blood 86 mm[Hg] 86 mm[Hg] [facility] Systolic blood 134 mm[Hg] 134 mm[Hg] [facility] Body temperature 36.057625 Kaylie 36.289120 Kaylie [facility] Respiratory rate 18 /min 18 /min [facility] Oxygen 98 % 98 % [place] saturation in Medical Arterial blood Center by Pulse oximetry Heart rate 87 /min 87 /min [facility] Diastolic blood 90 mm[Hg] 90 mm[Hg] [facility] pressure Medical Center Systolic blood 145 mm[Hg] 145 mm[Hg] [facility] Body temperature 36.706195 Kaylie 36.089619 Kaylie [facility] Respiratory rate 16 /min 16 /min [facility] Oxygen 97 % 97 % [place] saturation in Medical Arterial blood Center by Pulse oximetry Heart rate 85 /min 85 /min [facility] Diastolic blood 76 mm[Hg] 76 mm[Hg] [facility] pressure Medical Center Systolic blood 123 mm[Hg] 123 mm[Hg] [facility] Body temperature 36.429933 Kaylie 36.690671 Kaylie [facility] Body weight 125.788188 kg 125.081091 kg [facility] Body temperature 36.726819 Kaylie 36.655247 Kaylie [facility] Respiratory rate 20 /min 20 /min [facility] Oxygen 95 % 95 % [facility] [place] saturation in Medical Arterial blood Center by Pulse oximetry Heart rate 100 /min 100 /min [facility] Body height 177.153161 cm 177.514507 cm [facility] Diastolic blood 76 mm[Hg] 76 mm[Hg] [facility] Systolic blood 124 mm[Hg] 124 mm[Hg] [facility] Body mass index 39.5 kg/m2 39.5 kg/m2 [facility] (BMI) [Ratio] [facility] Center Body temperature 36.234402 Kaylie 36.165387 Kaylie [facility] Respiratory rate 17 /min 17 /min [facility] Oxygen 96 % 96 % [facility] [place] saturation in Medical Arterial blood Center by Pulse oximetry Heart rate 77 /min 77 /min [facility] Diastolic blood 71 mm[Hg] 71 mm[Hg] [facility] Systolic blood 122 mm[Hg] 122 mm[Hg] [facility] Body temperature 37.875893 Kaylie 37.286440 Kaylie [facility] Respiratory rate 19 /min 19 /min [facility] Oxygen 96 % 96 % [facility] [place] saturation in Medical Arterial blood Center by Pulse oximetry Heart rate 72 /min 72 /min [facility] Diastolic blood 64 mm[Hg] 64 mm[Hg] [facility] pressure [facility] Center Systolic blood 140 mm[Hg] 140 mm[Hg] [facility] Body temperature 36.434792 Kaylie 36.349762 Kaylie [facility] Respiratory rate 18 /min 18 /min [facility] Oxygen 97 % 97 % [place] saturation in Medical Arterial blood Center by Pulse oximetry Heart rate 68 /min 68 /min [facility] Diastolic blood 86 mm[Hg] 86 mm[Hg] [facility] pressure [facility] Center Systolic blood 135 mm[Hg] 135 mm[Hg] [facility] Body temperature 36.267820 Kaylie 36.924807 Kaylie [facility] Respiratory rate 18 /min 18 /min [facility] Oxygen 97 % 97 % [place] saturation in Medical Arterial blood Center by Pulse oximetry Heart rate 78 /min 78 /min [facility] Diastolic blood 69 mm[Hg] 69 mm[Hg] [facility] Systolic blood 134 mm[Hg] 134 mm[Hg] [facility] Body temperature 36.382406 Kaylie 36.395926 Kaylie [facility] Respiratory rate 18 /min 18 /min [facility] Oxygen 96 % 96 % [facility] [place] saturation in Medical Arterial blood Center by Pulse oximetry Heart rate 87 /min 87 /min [facility] Diastolic blood 80 mm[Hg] 80 mm[Hg] [facility] Systolic blood 135 mm[Hg] 135 mm[Hg] [facility] Heart rate 77 /min 77 /min [facility] Diastolic blood 77 mm[Hg] 77 mm[Hg] [facility] Systolic blood 142 mm[Hg] 142 mm[Hg] [facility] Body temperature 36.510065 Kaylie 36.561292 Kaylie [facility] Respiratory rate 18 /min 18 /min [facility] Oxygen 97 % 97 % [place] saturation in Medical Arterial blood Center by Pulse oximetry Body temperature 36.168211 Kaylie 36.648368 Kaylie [facility] Respiratory rate 18 /min 18 /min [facility] Oxygen 98 % 98 % [place] saturation in Medical Arterial blood Center by Pulse oximetry Heart rate 78 /min 78 /min [facility] Diastolic blood 80 mm[Hg] 80 mm[Hg] [facility] Systolic blood 124 mm[Hg] 124 mm[Hg] [facility] Body temperature 36.368885 Kaylie 36.535274 Kaylie [facility] Respiratory rate 17 /min 17 /min [facility] Oxygen 96 % 96 % [place] saturation in Medical Arterial blood Center by Pulse oximetry Heart rate 80 /min 80 /min [facility] Diastolic blood 88 mm[Hg] 88 mm[Hg] [facility] pressure [facility] Center Systolic blood 133 mm[Hg] 133 mm[Hg] [facility] Body temperature 36.484630 Kaylie 36.425623 Kaylie [facility] Respiratory rate 17 /min 17 /min [facility] Oxygen 99 % 99 % [place] saturation in Medical Arterial blood Center by Pulse oximetry Heart rate 80 /min 80 /min [facility] Diastolic blood 78 mm[Hg] 78 mm[Hg] [facility] pressure [facility] Center Systolic blood 132 mm[Hg] 132 mm[Hg] [facility] Body weight 90.238945 kg 90.205095 kg [facility] Body height 177.919931 cm 177.810653 cm [facility] Body mass index 28.4 kg/m2 28.4 kg/m2 [facility] (BMI) [Ratio] Medical Center Body temperature 36.192015 Kaylie 36.592578 Kaylie [facility] Respiratory rate 18 /min 18 /min [facility] Oxygen 96 % 96 % [facility] [place] saturation in Medical Arterial blood Center by Pulse oximetry Heart rate 90 /min 90 /min [facility] Diastolic blood 58 mm[Hg] 58 mm[Hg] [facility] Systolic blood 111 mm[Hg] 111 mm[Hg] [facility] Body temperature 36.051746 Kaylie 36.590914 Kaylie [facility] Respiratory rate 18 /min 18 /min [facility] Oxygen 95 % 95 % [facility] [place] saturation in Medical Arterial blood Center by Pulse oximetry Heart rate 94 /min 94 /min [facility] Diastolic blood 55 mm[Hg] 55 mm[Hg] [facility] pressure [facility] Center Systolic blood 114 mm[Hg] 114 mm[Hg] [facility] Body weight 110.024363 kg 110.356064 kg [facility] Body temperature 37.725032 Kaylie 37.540351 Kaylie [facility] Respiratory rate 18 /min 18 /min [facility] Oxygen 98 % 98 % [facility] [place] saturation in Medical Arterial blood Center by Pulse oximetry Heart rate 88 /min 88 /min [facility] Body height 185.902470 cm 185.308188 cm [facility] Diastolic blood 78 mm[Hg] 78 mm[Hg] [facility] pressure [facility] Center Systolic blood 143 mm[Hg] 143 mm[Hg] [facility] Body mass index 31.9 kg/m2 31.9 kg/m2 [facility] (BMI) [Ratio] Medical Center Diastolic blood 79 mm[Hg] 79 mm[Hg] [facility] Systolic blood 122 mm[Hg] 122 mm[Hg] [facility] Body temperature 36.894781 Kaylie 36.296190 Kaylie [facility] Respiratory rate 18 /min 18 /min [facility] Oxygen 98 % 98 % [place] saturation in Medical Arterial blood Center by Pulse oximetry Heart rate 88 /min 88 /min [facility] Diastolic blood 51 mm[Hg] 51 mm[Hg] [facility] Systolic blood 81 mm[Hg] 81 mm[Hg] [facility] Body temperature 37.568974 Kaylie 37.457976 Kaylie [facility] Respiratory rate 18 /min 18 /min [facility] Oxygen 96 % 96 % [facility] [place] saturation in Medical Arterial blood Center by Pulse oximetry Heart rate 98 /min 98 /min [facility] Diastolic blood 90 mm[Hg] 90 mm[Hg] [facility] Systolic blood 148 mm[Hg] 148 mm[Hg] [facility] Body temperature 37.559896 Kaylie 37.009353 Kaylie [facility] Respiratory rate 18 /min 18 /min [facility] Oxygen 95 % 95 % [place] saturation in Medical Arterial blood Center by Pulse oximetry Heart rate 99 /min 99 /min [facility] Diastolic blood 79 mm[Hg] 79 mm[Hg] [facility] pressure [facility] Center Systolic blood 132 mm[Hg] 132 mm[Hg] [facility] Body temperature 36.631087 Kaylie 36.310966 Kaylie [facility] Respiratory rate 18 /min 18 /min [facility] Oxygen 96 % 96 % [place] saturation in Medical Arterial blood Center by Pulse oximetry Heart rate 97 /min 97 /min [facility] Diastolic blood 64 mm[Hg] 64 mm[Hg] [facility] Systolic blood 118 mm[Hg] 118 mm[Hg] [facility] Body temperature 36.222387 Kaylie 36.815796 Kaylie [facility] Respiratory rate 18 /min 18 /min [facility] Oxygen 96 % 96 % [facility] [place] saturation in Medical Arterial blood Center by Pulse oximetry Heart rate 95 /min 95 /min [facility] Diastolic blood 68 mm[Hg] 68 mm[Hg] [facility] Systolic blood 127 mm[Hg] 127 mm[Hg] [facility] Body temperature 37.067670 Kaylie 37.890320 Kaylie [facility] Respiratory rate 18 /min 18 /min [facility] Oxygen 95 % 95 % [facility] [place] saturation in Medical Arterial blood Center by Pulse oximetry Heart rate 94 /min 94 /min [facility] Diastolic blood 69 mm[Hg] 69 mm[Hg] [facility] Systolic blood 115 mm[Hg] 115 mm[Hg] [facility] Body temperature 36.790867 Kaylie 36.680924 Kaylie [facility] Respiratory rate 17 /min 17 /min [facility] Oxygen 95 % 95 % [place] saturation in Medical Arterial blood Center by Pulse oximetry Heart rate 90 /min 90 /min [facility] Diastolic blood 60 mm[Hg] 60 mm[Hg] [facility] Systolic blood 109 mm[Hg] 109 mm[Hg] [facility] Body temperature 36.494951 Kaylie 36.617170 Kaylie [facility] Respiratory rate 16 /min 16 /min [facility] Heart rate 85 /min 85 /min [facility] Diastolic blood 73 mm[Hg] 73 mm[Hg] [facility] Systolic blood 140 mm[Hg] 140 mm[Hg] [facility] Body temperature 36.756403 Kaylie 36.678202 Kaylie [facility] Respiratory rate 18 /min 18 /min [facility] Oxygen 95 % 95 % [facility] [place] saturation in Medical Arterial blood Center by Pulse oximetry Heart rate 90 /min 90 /min [facility] Diastolic blood 76 mm[Hg] 76 mm[Hg] [facility] Systolic blood 131 mm[Hg] 131 mm[Hg] [facility] Body temperature 36.160983 Kaylie 36.411393 Kaylie [facility] Respiratory rate 18 /min 18 /min [facility] Oxygen 94 % 94 % [place] saturation in Medical Arterial blood Center by Pulse oximetry Heart rate 88 /min 88 /min [facility] Diastolic blood 74 mm[Hg] 74 mm[Hg] [facility] Systolic blood 152 mm[Hg] 152 mm[Hg] [facility] Body temperature 36.717746 Kaylie 36.338341 Kay[facility] Respiratory rate 17 /min 17 /min [facility] Heart rate 99 /min 99 /min [facility] Diastolic blood 52 mm[Hg] 52 mm[Hg] [facility] Systolic blood 111 mm[Hg] 111 mm[Hg] [facility] Body weight 79.605490 kg 79.716084 kg [facility] Body temperature 36.084147 Kaylie 36.275360 Kaylie [facility] Respiratory rate 19 /min 19 /min [facility] Oxygen 95 % 95 % [facility] saturation in Medical Arterial blood Center by Pulse oximetry Heart rate 74 /min 74 /min [facility] Body height 170.022829 cm 170.061759 cm [facility] Diastolic blood 86 mm[Hg] 86 mm[Hg] [facility] Systolic blood 152 mm[Hg] 152 mm[Hg] [facility] Body mass index 27.4 kg/m2 27.4 kg/m2 [facility] (BMI) [Ratio] Medical Center Body temperature 36.787822 Kaylie 36.127463 Kaylie [facility] Respiratory rate 18 /min 18 /min [facility] Oxygen 98 % 98 % [place] saturation in Medical Arterial blood Center by Pulse oximetry Heart rate 96 /min 96 /min [facility] Diastolic blood 78 mm[Hg] 78 mm[Hg] [facility] Systolic blood 143 mm[Hg] 143 mm[Hg] [facility] Body temperature 36.305882 Kaylie 36.366512 Kaylie [facility] Respiratory rate 19 /min 19 /min [facility] Oxygen 96 % 96 % [facility] saturation in Medical Arterial blood Center by Pulse oximetry Heart rate 105 /min 105 /min [facility] Diastolic blood 66 mm[Hg] 66 mm[Hg] [facility] pressure Medical Center Systolic blood 113 mm[Hg] 113 mm[Hg] [facility] Body temperature 36.613754 Kaylie 36.474838 Kaylie [facility] Respiratory rate 18 /min 18 /min [facility] Oxygen 96 % 96 % [facility] saturation in Medical Arterial blood Center by Pulse oximetry Heart rate 92 /min 92 /min [facility] Diastolic blood 70 mm[Hg] 70 mm[Hg] [facility] Systolic blood 128 mm[Hg] 128 mm[Hg] [facility] Body temperature 36.784475 Kaylie 36.918927 Kaylie [facility] Respiratory rate 17 /min 17 /min [facility] Oxygen 97 % 97 % [facility] saturation in Medical Arterial blood Center by Pulse oximetry Heart rate 78 /min 78 /min [facility] Diastolic blood 78 mm[Hg] 78 mm[Hg] [facility] Systolic blood 138 mm[Hg] 138 mm[Hg] [facility] Body temperature 36.786395 Kaylie 36.633304 Kaylie [facility] Respiratory rate 18 /min 18 /min [facility] Oxygen 95 % 95 % [facility] saturation in Medical Arterial blood Center by Pulse oximetry Heart rate 90 /min 90 /min [facility] Diastolic blood 77 mm[Hg] 77 mm[Hg] [facility] Systolic blood 147 mm[Hg] 147 mm[Hg] [facility] Body temperature 37.582043 Kaylie 37.723120 Kaylie [facility] Respiratory rate 18 /min 18 /min [facility] Oxygen 95 % 95 % [facility] saturation in Medical Arterial blood Center by Pulse oximetry Heart rate 74 /min 74 /min [facility] Diastolic blood 65 mm[Hg] 65 mm[Hg] [facility] Systolic blood 127 mm[Hg] 127 mm[Hg] [facility] Body temperature 36.379331 Kaylie 36.660924 Kaylie [facility] Respiratory rate 18 /min 18 /min [facility] Oxygen 96 % 96 % [facility] saturation in Medical Arterial blood Center by Pulse oximetry Heart rate 90 /min 90 /min [facility] Diastolic blood 60 mm[Hg] 60 mm[Hg] [facility] pressure Medical Center Systolic blood 131 mm[Hg] 131 mm[Hg] [facility] Body temperature 36.975870 Kaylie 36.771996 Kaylie [facility] Respiratory rate 17 /min 17 /min [facility] Oxygen 98 % 98 % [facility] saturation in Medical Arterial blood Center by Pulse oximetry Heart rate 73 /min 73 /min [facility] Diastolic blood 75 mm[Hg] 75 mm[Hg] [facility] Systolic blood 139 mm[Hg] 139 mm[Hg] [facility] Body temperature 36.003516 Kaylie 36.955874 Kaylie [facility] Respiratory rate 18 /min 18 /min [facility] Oxygen 99 % 99 % [facility] saturation in Medical Arterial blood Center by Pulse oximetry Heart rate 103 /min 103 /min [facility] Diastolic blood 43 mm[Hg] 43 mm[Hg] [facility] Systolic blood 117 mm[Hg] 117 mm[Hg] [facility] Body temperature 37.766687 Kaylie 37.564594 Kaylie [facility] Respiratory rate 17 /min 17 /min [facility] Oxygen 95 % 95 % [facility] saturation in Medical Arterial blood Center by Pulse oximetry Heart rate 97 /min 97 /min [facility] Diastolic blood 83 mm[Hg] 83 mm[Hg] [facility] pressure Medical Center Systolic blood 154 mm[Hg] 154 mm[Hg] [facility] Body temperature 36.189302 Kaylie 36.116143 Kaylie [facility] Respiratory rate 18 /min 18 /min [facility] Oxygen 98 % 98 % [facility] saturation in Medical Arterial blood Center by Pulse oximetry Heart rate 91 /min 91 /min [facility] Diastolic blood 90 mm[Hg] 90 mm[Hg] [facility] Systolic blood 158 mm[Hg] 158 mm[Hg] [facility] Body temperature 36.711796 Kaylie 36.086522 Kaylie [facility] Respiratory rate 18 /min 18 /min [facility] Oxygen 96 % 96 % [facility] saturation in Medical Arterial blood Center by Pulse oximetry Heart rate 91 /min 91 /min [facility] Diastolic blood 98 mm[Hg] 98 mm[Hg] [facility] pressure Medical Center Systolic blood 149 mm[Hg] 149 mm[Hg] [facility] Body temperature 36.094677 Kaylie 36.241878 Kaylie [facility] Respiratory rate 18 /min 18 /min [facility] Oxygen 98 % 98 % [facility] saturation in Medical Arterial blood Center by Pulse oximetry Heart rate 84 /min 84 /min [facility] Diastolic blood 67 mm[Hg] 67 mm[Hg] [facility] Systolic blood 128 mm[Hg] 128 mm[Hg] [facility] Body weight 90.307540 kg 90.481526 kg [facility] Body temperature 36.408586 Kaylie 36.942302 Kaylie [facility] Respiratory rate 17 /min 17 /min [facility] Oxygen 96 % 96 % [facility] saturation in Medical Arterial blood Center by Pulse oximetry Heart rate 79 /min 79 /min [facility] Body height 177.655760 cm 177.123744 cm [facility] Diastolic blood 74 mm[Hg] 74 mm[Hg] [facility] Systolic blood 120 mm[Hg] 120 mm[Hg] [facility] Body mass index 28.6 kg/m2 28.6 kg/m2 [facility] (BMI) [Ratio] [facility] Center Body temperature 37.941003 Kaylie 37.304471 Kaylie [facility] Respiratory rate 18 /min 18 /min [facility] Heart rate 95 /min 95 /min [facility] Diastolic blood 114 mm[Hg] 114 mm[Hg] [facility] Systolic blood 179 mm[Hg] 179 mm[Hg] [facility] Body temperature 36.315685 Kaylie 36.446795 Kaylie [facility] Respiratory rate 18 /min 18 /min [facility] Oxygen 96 % 96 % [facility] saturation in Medical Arterial blood Center by Pulse oximetry Heart rate 85 /min 85 /min [facility] Diastolic blood 90 mm[Hg] 90 mm[Hg] [facility] pressure Medical Center Systolic blood 144 mm[Hg] 144 mm[Hg] [facility] Body temperature 36.039368 Kaylie 36.854616 Kaylie [facility] Respiratory rate 18 /min 18 /min [facility] Oxygen 95 % 95 % [facility] saturation in Medical Arterial blood Center by Pulse oximetry Heart rate 84 /min 84 /min [facility] Diastolic blood 80 mm[Hg] 80 mm[Hg] [facility] Systolic blood 138 mm[Hg] 138 mm[Hg] [facility] Body weight 110.820171 kg 110.082331 kg [facility] Body temperature 36.638307 Kaylie 36.197595 Kaylie [facility] Respiratory rate 18 /min 18 /min [facility] Oxygen 98 % 98 % [facility] saturation in Medical Arterial blood Center by Pulse oximetry Heart rate 78 /min 78 /min [facility] Body height 185.660863 cm 185.811485 cm [facility] Diastolic blood 78 mm[Hg] 78 mm[Hg] [facility] pressure Medical Center Systolic blood 148 mm[Hg] 148 mm[Hg] [facility] Body mass index 31.9 kg/m2 31.9 kg/m2 [facility] (BMI) [Ratio] Medical Center Body temperature 36.073503 Kaylie 36.845157 Kaylie [facility] Respiratory rate 20 /min 20 /min [facility] Oxygen 94 % 94 % [facility] saturation in Medical Arterial blood Center by Pulse oximetry Heart rate 80 /min 80 /min [facility] Diastolic blood 69 mm[Hg] 69 mm[Hg] [facility] pressure [facility] Center Systolic blood 125 mm[Hg] 125 mm[Hg] [facility] Body temperature 36.570032 Kaylie 36.512776 Kaylie [facility] Respiratory rate 18 /min 18 /min [facility] Oxygen 100 % 100 % [facility] saturation in Medical Arterial blood Center by Pulse oximetry Heart rate 78 /min 78 /min [facility] Diastolic blood 70 mm[Hg] 70 mm[Hg] [facility] pressure Medical Center Systolic blood 130 mm[Hg] 130 mm[Hg] [facility] Body temperature 36.719989 Kaylie 36.756414 Kaylie [facility] Respiratory rate 18 /min 18 /min [facility] Oxygen 95 % 95 % [facility] saturation in Medical Arterial blood Center by Pulse oximetry Heart rate 93 /min 93 /min [facility] Diastolic blood 83 mm[Hg] 83 mm[Hg] [facility] pressure Medical Center Systolic blood 163 mm[Hg] 163 mm[Hg] [facility] Body temperature 36.888501 Kaylie 36.687659 Kaylie [facility] Respiratory rate 20 /min 20 /min [facility] Oxygen 94 % 94 % [facility] saturation in Medical Arterial blood Center by Pulse oximetry Heart rate 94 /min 94 /min [facility] Diastolic blood 90 mm[Hg] 90 mm[Hg] [facility] Systolic blood 130 mm[Hg] 130 mm[Hg] [facility] Body weight 104.118964 kg 104.648425 kg [facility] Body temperature 36.976586 Kaylie 36.386220 Kaylie [facility] Respiratory rate 17 /min 17 /min [facility] Oxygen 100 % 100 % [place] saturation in Medical Arterial blood Center by Pulse oximetry Heart rate 91 /min 91 /min [facility] Body height 177.857841 cm 177.428301 cm [facility] Diastolic blood 97 mm[Hg] 97 mm[Hg] [facility] Systolic blood 123 mm[Hg] 123 mm[Hg] [facility] Body mass index 33.0 kg/m2 33.0 kg/m2 [facility] (BMI) [Ratio] Medical [facility] Body temperature 37.961215 Kaylie 37.617742 Kaylie [facility] Respiratory rate 18 /min 18 /min [facility] Oxygen 97 % 97 % [place] saturation in Medical Arterial blood Center by Pulse oximetry Heart rate 90 /min 90 /min [facility] Diastolic blood 76 mm[Hg] 76 mm[Hg] [facility] Systolic blood 148 mm[Hg] 148 mm[Hg] [facility] Body temperature 37.196565 Kaylie 37.495383 Kaylie [facility] Respiratory rate 18 /min 18 /min [facility] Oxygen 96 % 96 % [facility] saturation in Medical Arterial blood Center by Pulse oximetry Heart rate 96 /min 96 /min [facility] Diastolic blood 97 mm[Hg] 97 mm[Hg] [facility] Systolic blood 176 mm[Hg] 176 mm[Hg] [facility] Body temperature 36.938632 Kaylie 36.197803 Kaylie [facility] Respiratory rate 18 /min 18 /min [facility] Oxygen 99 % 99 % [facility] saturation in Medical Arterial blood Center by Pulse oximetry Heart rate 98 /min 98 /min [facility] Diastolic blood 91 mm[Hg] 91 mm[Hg] [facility] Systolic blood 152 mm[Hg] 152 mm[Hg] [facility] Body temperature 37.717179 Kaylie 37.553932 Kaylie [facility] Respiratory rate 18 /min 18 /min [facility] Oxygen 94 % 94 % [facility] saturation in Medical Arterial blood Center by Pulse oximetry Heart rate 84 /min 84 /min [facility] Diastolic blood 81 mm[Hg] 81 mm[Hg] [facility] Systolic blood 144 mm[Hg] 144 mm[Hg] [facility] Body temperature 36.062747 Kaylie 36.149177 Kaylie [facility] Respiratory rate 19 /min 19 /min [facility] Oxygen 99 % 99 % [facility] saturation in Medical Arterial blood Center by Pulse oximetry Heart rate 80 /min 80 /min [facility] Diastolic blood 78 mm[Hg] 78 mm[Hg] [facility] Systolic blood 139 mm[Hg] 139 mm[Hg] [facility] Body temperature 36.926728 Kaylie 36.695965 Kaylie [facility] Respiratory rate 19 /min 19 /min [facility] Oxygen 97 % 97 % [facility] saturation in Medical Arterial blood Center by Pulse oximetry Heart rate 71 /min 71 /min [facility] Diastolic blood 88 mm[Hg] 88 mm[Hg] [facility] pressure [facility] Center Systolic blood 138 mm[Hg] 138 mm[Hg] [facility] Body temperature 36.189626 Kaylie 36.035749 Kaylie [facility] Respiratory rate 18 /min 18 /min [facility] Oxygen 98 % 98 % [facility] saturation in Medical Arterial blood Center by Pulse oximetry Heart rate 97 /min 97 /min [facility] Diastolic blood 90 mm[Hg] 90 mm[Hg] [facility] Systolic blood 156 mm[Hg] 156 mm[Hg] [facility] Body temperature 36.224274 Kaylie 36.448352 Kaylie [facility] Respiratory rate 18 /min 18 /min [facility] Oxygen 95 % 95 % [facility] saturation in Medical Arterial blood Center by Pulse oximetry Heart rate 98 /min 98 /min [facility] Diastolic blood 93 mm[Hg] 93 mm[Hg] [facility] Systolic blood 163 mm[Hg] 163 mm[Hg] [facility] Body temperature 36.024460 Kaylie 36.199273 Kaylie [facility] Respiratory rate 18 /min 18 /min [facility] Oxygen 95 % 95 % [facility] saturation in Medical Arterial blood Center by Pulse oximetry Heart rate 84 /min 84 /min [facility] Diastolic blood 83 mm[Hg] 83 mm[Hg] [facility] Systolic blood 130 mm[Hg] 130 mm[Hg] [facility] Body temperature 36.317169 Kaylie 36.466040 Kaylie [facility] Respiratory rate 17 /min 17 /min [facility] Oxygen 96 % 96 % [facility] saturation in Medical Arterial blood Center by Pulse oximetry Heart rate 81 /min 81 /min [facility] Diastolic blood 71 mm[Hg] 71 mm[Hg] [facility] Systolic blood 118 mm[Hg] 118 mm[Hg] [facility] Body temperature 37.479032 Kaylie 37.207301 Kaylie [facility] Respiratory rate 18 /min 18 /min [facility] Oxygen 91 % 91 % [facility] saturation in Medical Arterial blood Center by Pulse oximetry Heart rate 107 /min 107 /min [facility] Diastolic blood 79 mm[Hg] 79 mm[Hg] [facility] pressure Medical Center Systolic blood 144 mm[Hg] 144 mm[Hg] [facility] Body temperature 36.369486 Kaylie 36.660520 Kaylie [facility] Respiratory rate 18 /min 18 /min [facility] Oxygen 90 % 90 % [facility] saturation in Medical Arterial blood Center by Pulse oximetry Heart rate 96 /min 96 /min [facility] Diastolic blood 43 mm[Hg] 43 mm[Hg] [facility] pressure Medical Center Systolic blood 100 mm[Hg] 100 mm[Hg] [facility] Body temperature 36.852650 Kaylie 36.572986 Kaylie [facility] Respiratory rate 18 /min 18 /min [facility] Oxygen 98 % 98 % [facility] saturation in Medical Arterial blood Center by Pulse oximetry Heart rate 96 /min 96 /min [facility] Diastolic blood 80 mm[Hg] 80 mm[Hg] [facility] Systolic blood 132 mm[Hg] 132 mm[Hg] [facility] Body temperature 37.348021 Kaylie 37.557886 Kaylie [facility] Respiratory rate 18 /min 18 /min [facility] Oxygen 97 % 97 % [facility] saturation in Medical Arterial blood Center by Pulse oximetry Heart rate 98 /min 98 /min [facility] Diastolic blood 57 mm[Hg] 57 mm[Hg] [facility] Systolic blood 141 mm[Hg] 141 mm[Hg] [facility] Body temperature 36.227143 Kaylie 36.427710 Kaylie [facility] Respiratory rate 20 /min 20 /min [facility] Oxygen 97 % 97 % [facility] saturation in Medical Arterial blood Center by Pulse oximetry Heart rate 100 /min 100 /min [facility] Diastolic blood 71 mm[Hg] 71 mm[Hg] [facility] Systolic blood 140 mm[Hg] 140 mm[Hg] [facility] Body temperature 36.971820 Kaylie 36.868626 Kaylie [facility] Respiratory rate 18 /min 18 /min [facility] Oxygen 98 % 98 % [facility] saturation in Medical Arterial blood Center by Pulse oximetry Heart rate 96 /min 96 /min [facility] Diastolic blood 67 mm[Hg] 67 mm[Hg] [facility] pressure [facility] Center Systolic blood 132 mm[Hg] 132 mm[Hg] [facility] Body temperature 36.240159 Kaylie 36.578362 Kaylie [facility] Respiratory rate 17 /min 17 /min [facility] Oxygen 98 % 98 % [facility] saturation in Medical Arterial blood Center by Pulse oximetry Heart rate 87 /min 87 /min [facility] Diastolic blood 71 mm[Hg] 71 mm[Hg] [facility] pressure [facility] Center Systolic blood 133 mm[Hg] 133 mm[Hg] [facility] Body temperature 36.348773 Kaylie 36.067844 Kaylie [facility] Respiratory rate 17 /min 17 /min [facility] Oxygen 95 % 95 % [facility] saturation in Medical Arterial blood Center by Pulse oximetry Heart rate 100 /min 100 /min [facility] Diastolic blood 78 mm[Hg] 78 mm[Hg] [facility] pressure Medical Center Systolic blood 124 mm[Hg] 124 mm[Hg] [facility] Body temperature 36.211102 Kaylie 36.513616 Kaylie [facility] Respiratory rate 19 /min 19 /min [facility] Oxygen 95 % 95 % [facility] saturation in Medical Arterial blood Center by Pulse oximetry Heart rate 103 /min 103 /min [facility] Diastolic blood 65 mm[Hg] 65 mm[Hg] [facility] pressure [facility] Center Systolic blood 126 mm[Hg] 126 mm[Hg] [facility] Body temperature 36.978504 Kaylie 36.837088 Kaylie [facility] Respiratory rate 20 /min 20 /min [facility] Oxygen 94 % 94 % [facility] saturation in Medical Arterial blood Center by Pulse oximetry Heart rate 105 /min 105 /min [facility] Diastolic blood 61 mm[Hg] 61 mm[Hg] [facility] pressure [facility] Center Systolic blood 122 mm[Hg] 122 mm[Hg] [facility] Body temperature 36.005793 Kaylie 36.673087 Kaylie [facility] Respiratory rate 18 /min 18 /min [facility] Oxygen 97 % 97 % [facility] saturation in Medical Arterial blood Center by Pulse oximetry Heart rate 97 /min 97 /min [facility] Diastolic blood 76 mm[Hg] 76 mm[Hg] [facility] pressure Medical Center Systolic blood 132 mm[Hg] 132 mm[Hg] [facility] Body temperature 36.747079 Kaylie 36.589903 Kaylie [facility] Respiratory rate 17 /min 17 /min [facility] Oxygen 98 % 98 % [facility] saturation in Medical Arterial blood Center by Pulse oximetry Heart rate 75 /min 75 /min [facility] Diastolic blood 35 mm[Hg] 35 mm[Hg] [facility] Systolic blood 139 mm[Hg] 139 mm[Hg] [facility] Body temperature 36.492504 Kaylie 36.053842 Kaylie [facility] Respiratory rate 17 /min 17 /min [facility] Oxygen 98 % 98 % [facility] saturation in Medical Arterial blood Center by Pulse oximetry Heart rate 81 /min 81 /min [facility] Diastolic blood 83 mm[Hg] 83 mm[Hg] [facility] pressure [facility] Center Systolic blood 135 mm[Hg] 135 mm[Hg] [facility] Body temperature 36.436850 Kaylie 36.943187 Kaylie [facility] Respiratory rate 17 /min 17 /min [facility] Oxygen 97 % 97 % [facility] saturation in Medical Arterial blood Center by Pulse oximetry Heart rate 87 /min 87 /min [facility] Diastolic blood 57 mm[Hg] 57 mm[Hg] [facility] Systolic blood 92 mm[Hg] 92 mm[Hg] [facility] Body temperature 36.673919 Kaylie 36.847806 Kaylie [facility] Respiratory rate 17 /min 17 /min [facility] Oxygen 98 % 98 % [facility] saturation in Medical Arterial blood Center by Pulse oximetry Heart rate 80 /min 80 /min [facility] Diastolic blood 78 mm[Hg] 78 mm[Hg] [facility] Systolic blood 123 mm[Hg] 123 mm[Hg] [facility] Body weight 95.925880 kg 95.734868 kg [facility] Body temperature 36.717819 Kaylie 36.301456 Kaylie [facility] Respiratory rate 17 /min 17 /min [facility] Oxygen 96 % 96 % [facility] saturation in [facility] Arterial blood Center by Pulse oximetry Heart rate 90 /min 90 /min [facility] Body height 177.704118 cm 177.601000 cm [facility] Diastolic blood 73 mm[Hg] 73 mm[Hg] [facility] Systolic blood 132 mm[Hg] 132 mm[Hg] [facility] Body mass index 30.1 kg/m2 30.1 kg/m2 [facility] (BMI) [Ratio] [facility] Center Body temperature 36.763548 Kaylie 36.872645 Kaylie [facility] Respiratory rate 18 /min 18 /min [facility] Heart rate 88 /min 88 /min [facility] Diastolic blood 71 mm[Hg] 71 mm[Hg] [facility] Systolic blood 147 mm[Hg] 147 mm[Hg] [facility] Body temperature 36.997971 Kaylie 36.153555 Kay[facility] Respiratory rate 20 /min 20 /min [facility] Heart rate 86 /min 86 /min [facility] Diastolic blood 89 mm[Hg] 89 mm[Hg] [facility] Systolic blood 145 mm[Hg] 145 mm[Hg] [facility] Body weight 114.709003 kg 114.588158 kg [facility] Body height 177.654394 cm 177.004996 cm [facility] Body mass index 36.06 kg/m2 36.06 kg/m2 [facility] (BMI) [Ratio] [facility] Center Body temperature 37.717129 Kaylie 37.613954 [facility] Respiratory rate 18 /min 18 /min [facility] Heart rate 89 /min 89 /min [facility] Diastolic blood 73 mm[Hg] 73 mm[Hg] [facility] Systolic blood 120 mm[Hg] 120 mm[Hg] [facility] Body temperature 37.265036 Kaylie 37.571880 Kaylie [facility] Respiratory rate 18 /min 18 /min [facility] Heart rate 90 /min 90 /min [facility] Diastolic blood 107 mm[Hg] 107 mm[Hg] [facility] Systolic blood 160 mm[Hg] 160 mm[Hg] [facility] Body temperature 37.050645 Kaylie 37.795354 [facility] Respiratory rate 18 /min 18 /min [facility] Heart rate 80 /min 80 /min [facility] Diastolic blood 68 mm[Hg] 68 mm[Hg] [facility] Systolic blood 128 mm[Hg] 128 mm[Hg] [facility] Body weight 114.776221 kg 114.163102 kg [facility] Body height 177.828068 cm 177.787710 cm [facility] Body mass index 36.06 kg/m2 36.06 kg/m2 [facility] (BMI) [Ratio] Medical Center Oxygen 95 % 95 % [facility] saturation in Medical Arterial blood Center by Pulse oximetry Body weight 114.475835 kg 114.342719 kg [facility] Measured [facility] Body height 177.836478 cm 177.006224 cm [facility] Body mass index 36.06 kg/m2 36.06 kg/m2 [facility] (BMI) [Ratio] Medical Center Oxygen 95 % 95 % [place] saturation in Medical Arterial blood Center by Pulse oximetry Oxygen 95 % 95 % [facility] saturation in Medical Arterial blood Center by Pulse oximetry Body height 177.037773 cm 177.135903 cm [facility] Body mass index 36.06 kg/m2 36.06 kg/m2 [facility] (BMI) [Ratio] [facility] Center Body weight 114.972938 kg 114.230452 kg [facility] Measured [facility] Body weight 114.750384 kg 114.843655 kg [facility] Measured [facility] Body height 177.705195 cm 177.989879 cm [facility] Body mass index 36.06 kg/m2 36.06 kg/m2 [facility] (BMI) [Ratio] [facility] Center Diastolic blood 86 mm[Hg] 86 mm[Hg] [facility] Systolic blood 146 mm[Hg] 146 mm[Hg] [facility] Body temperature 37.398911 Kaylie 37.562686 Kay[facility] Body temperature 37.196545 Kaylie 37.010864 [facility] Respiratory rate 18 /min 18 /min [facility] Heart rate 94 /min 94 /min [facility] Diastolic blood 87 mm[Hg] 87 mm[Hg] [facility] Systolic blood 151 mm[Hg] 151 mm[Hg] [facility] Body weight 114.151943 kg 114.130023 kg [facility] Body height 177.248596 cm 177.382032 cm [facility] Body mass index 36.06 kg/m2 36.06 kg/m2 [facility] Body weight 114.813682 kg 114.032704 kg [facility] Body height 177.361813 cm 177.535209 cm [facility] Body mass index 36.06 kg/m2 36.06 kg/m2 [facility] osep (BMI) [Ratio] Medical Center Body weight 114.298446 kg 114.822575 kg [facility] Body temperature 37.373514 Kaylie 37.088191 Kay[facility] Body temperature 36.467186 Kaylie 36.301692 [facility] Respiratory rate 18 /min 18 /min [facility] Respiratory rate 17 /min 17 /min [facility] Heart rate 84 /min 84 /min [facility] Heart rate 78 /min 78 /min [facility] Body height 177.631275 cm 177.692160 cm [facility] Diastolic blood 96 mm[Hg] 96 mm[Hg] [facility] Systolic blood 176 mm[Hg] 176 mm[Hg] [facility] Diastolic blood 96 mm[Hg] 96 mm[Hg] [facility] Systolic blood 149 mm[Hg] 149 mm[Hg] [facility] Body mass index 36.06 kg/m2 36.06 kg/m2 [facility] ([facility] Oxygen 99 % 99 % [facility] saturation in Medical Arterial blood Center by Pulse oximetry Body temperature 36.101464 Kaylie 36.680954 Kay[facility] Respiratory rate 18 /min 18 /min [facility] Heart rate 80 /min 80 /min [facility] Diastolic blood 99 mm[Hg] 99 mm[Hg] [facility] Systolic blood 149 mm[Hg] 149 mm[Hg] [facility] Oxygen 99 % 99 % [facility] saturation in Medical Arterial blood Center by Pulse oximetry Systolic blood 144 mm[Hg] 144 mm[Hg] [facility] Body temperature 36.658408 Kaylie 36.476009 Kay[facility] Respiratory rate 17 /min 17 /min [facility] Oxygen 98 % 98 % [facility] saturation in Medical Arterial blood Center by Pulse oximetry Heart rate 78 /min 78 /min [facility] Diastolic blood 94 mm[Hg] 94 mm[Hg] [facility] Respiratory rate 20 /min 20 /min [facility] Oxygen 96 % 96 % [facility] saturation in Medical Arterial blood Center by Pulse oximetry Heart rate 88 /min 88 /min [facility] Oxygen 97 % 97 % [facility] saturation in Medical Arterial blood Center by Pulse oximetry Body temperature 36.268435 Kaylie 36.818273 [facility] Respiratory rate 18 /min 18 /min [facility] Oxygen 98 % 98 % [facility] saturation in Medical Arterial blood Center by Pulse oximetry Heart rate 87 /min 87 /min [facility] Diastolic blood 77 mm[Hg] 77 mm[Hg] [facility] pressure Medical Center Systolic blood 112 mm[Hg] 112 mm[Hg] [facility] Body temperature 36.001737 Kaylie 36.254045 Kay[facility] Respiratory rate 17 /min 17 /min [facility] Oxygen 98 % 98 % [facility] saturation in Medical Arterial blood Center by Pulse oximetry Heart rate 81 /min 81 /min [facility] Diastolic blood 67 mm[Hg] 67 mm[Hg] [facility] Systolic blood 132 mm[Hg] 132 mm[Hg] [facility] Body temperature 37.939752 Kaylie 37.687614 Kaylie [facility] Respiratory rate 16 /min 16 /min [facility] Oxygen 98 % 98 % [facility] saturation in Medical Arterial blood Center by Pulse oximetry Heart rate 78 /min 78 /min [facility] Diastolic blood 65 mm[Hg] 65 mm[Hg] [facility] pressure Medical Center Systolic blood 136 mm[Hg] 136 mm[Hg] [facility] Body temperature 36.702929 Kaylie 36.027903 Kay[facility] Respiratory rate 17 /min 17 /min [facility] Oxygen 96 % 96 % [facility] saturation in Medical Arterial blood Center by Pulse oximetry Heart rate 86 /min 86 /min [facility] Diastolic blood 73 mm[Hg] 73 mm[Hg] [facility] Systolic blood 142 mm[Hg] 142 mm[Hg] [facility] Body temperature 36.979802 Kaylie 36.920904 Kay[facility] Respiratory rate 17 /min 17 /min [facility] Heart rate 79 /min 79 /min [facility] Diastolic blood 87 mm[Hg] 87 mm[Hg] [facility] pressure Medical Center Systolic blood 138 mm[Hg] 138 mm[Hg] [facility] Body temperature 37.792074 Kaylie 37.236494 Kay[facility] Respiratory rate 17 /min 17 /min [facility] Heart rate 99 /min 99 /min [facility] Diastolic blood 99 mm[Hg] 99 mm[Hg] [facility] pressure Medical Center Systolic blood 147 mm[Hg] 147 mm[Hg] [facility] Oxygen 97 % 97 % [facility] saturation in Medical Arterial blood Center by Pulse oximetry Body temperature 36.483450 Kaylie 36.671362 Kay[facility] Respiratory rate 18 /min 18 /min [facility] Oxygen 96 % 96 % [facility] saturation in Medical Arterial blood Center by Pulse oximetry Heart rate 78 /min 78 /min [facility] Diastolic blood 78 mm[Hg] 78 mm[Hg] [facility] pressure Medical Center Systolic blood 138 mm[Hg] 138 mm[Hg] [facility] Body temperature 35.118960 Kaylie 35.002170 Kay[facility] Respiratory rate 17 /min 17 /min [facility] Oxygen 98 % 98 % [place] saturation in Medical Arterial blood Center by Pulse oximetry Heart rate 77 /min 77 /min [facility] Diastolic blood 79 mm[Hg] 79 mm[Hg] [facility] Systolic blood 143 mm[Hg] 143 mm[Hg] [facility] Body temperature 36.467545 Kaylie 36.928290 Kay[facility] Respiratory rate 16 /min 16 /min [facility] Heart rate 81 /min 81 /min [facility] Diastolic blood 76 mm[Hg] 76 mm[Hg] [facility] Systolic blood 138 mm[Hg] 138 mm[Hg] [facility] Body temperature 36.373411 Kaylie 36.467307 Kay[facility] Respiratory rate 17 /min 17 /min [facility] Oxygen 97 % 97 % [facility] saturation in Medical Arterial blood Center by Pulse oximetry Heart rate 85 /min 85 /min [facility] Diastolic blood 67 mm[Hg] 67 mm[Hg] [facility] Systolic blood 132 mm[Hg] 132 mm[Hg] [facility] Body temperature 36.961997 Kaylie 36.469964 Kay[facility] Respiratory rate 17 /min 17 /min [facility] Oxygen 94 % 94 % [facility] saturation in Medical Arterial blood Center by Pulse oximetry Heart rate 70 /min 70 /min [facility] Diastolic blood 72 mm[Hg] 72 mm[Hg] [facility] Systolic blood 125 mm[Hg] 125 mm[Hg] [facility] Body temperature 36.550972 Kaylie 36.884763 Kaylie [facility] Respiratory rate 18 /min 18 /min [facility] Heart rate 88 /min 88 /min [facility] Diastolic blood 69 mm[Hg] 69 mm[Hg] [facility] Systolic blood 134 mm[Hg] 134 mm[Hg] [facility] Body temperature 36.449472 Kaylie 36.802658 Kay[facility] Respiratory rate 19 /min 19 /min [facility] Oxygen 96 % 96 % [place] saturation in Medical Arterial blood Center by Pulse oximetry Heart rate 87 /min 87 /min [facility] Diastolic blood 71 mm[Hg] 71 mm[Hg] [facility] Systolic blood 123 mm[Hg] 123 mm[Hg] [facility] Body weight 104.268571 kg 104.163527 kg [facility] Body temperature 36.255175 Kaylie 36.900976 Kay[facility] Respiratory rate 17 /min 17 /min [facility] Oxygen 95 % 95 % [place] saturation in Medical Arterial blood Center by Pulse oximetry Heart rate 89 /min 89 /min [facility] Body height 177.845472 cm 177.275329 cm [facility] Diastolic blood 69 mm[Hg] 69 mm[Hg] [facility] Systolic blood 127 mm[Hg] 127 mm[Hg] [facility] Body mass index 33.0 kg/m2 33.0 kg/m2 [facility] (BMI) [Ratio] Medical Center Body temperature 36.475213 Kaylie 36.121064 Kaylie [facility] Respiratory rate 19 /min 19 /min [facility] Heart rate 81 /min 81 /min [facility] Diastolic blood 88 mm[Hg] 88 mm[Hg] [facility] Systolic blood 136 mm[Hg] 136 mm[Hg] [facility] Body temperature 36.742794 Kaylie 36.231713 Kaylie [facility] Respiratory rate 18 /min 18 /min [facility] Heart rate 92 /min 92 /min [facility] Diastolic blood 98 mm[Hg] 98 mm[Hg] [facility] Systolic blood 148 mm[Hg] 148 mm[Hg] [facility] Body temperature 36.223231 Kaylie 36.625526 Kaylie [facility] Respiratory rate 19 /min 19 /min [facility] Oxygen 100 % 100 % [place] saturation in Medical Arterial blood Center by Pulse oximetry Heart rate 100 /min 100 /min [facility] Diastolic blood 61 mm[Hg] 61 mm[Hg] [facility] Systolic blood 126 mm[Hg] 126 mm[Hg] [facility] Body temperature 36.357225 Kaylie 36.861601 Kaylie [facility] Respiratory rate 17 /min 17 /min [facility] Oxygen 96 % 96 % [place] saturation in Medical Arterial blood Center by Pulse oximetry Heart rate 78 /min 78 /min [facility] Diastolic blood 89 mm[Hg] 89 mm[Hg] [facility] pressure Medical Center Systolic blood 146 mm[Hg] 146 mm[Hg] [facility] Body temperature 36.604997 Kaylie 36.790043 Kaylie [facility] Respiratory rate 17 /min 17 /min [facility] Oxygen 98 % 98 % [place] saturation in Medical Arterial blood Center by Pulse oximetry Heart rate 90 /min 90 /min [facility] Diastolic blood 63 mm[Hg] 63 mm[Hg] [facility] Systolic blood 145 mm[Hg] 145 mm[Hg] [facility] Respiratory rate 18 /min 18 /min [facility] Oxygen 99 % 99 % [place] saturation in Medical Arterial blood Center by Pulse oximetry Heart rate 78 /min 78 /min [facility] Diastolic blood 84 mm[Hg] 84 mm[Hg] [facility] Systolic blood 132 mm[Hg] 132 mm[Hg] [facility] Body temperature 36.367959 Kaylie 36.939261 Kaylie [facility] Body weight 110.619057 kg 110.639582 kg [facility] Body temperature 36.338343 Kaylie 36.174679 Kaylie [facility] Respiratory rate 18 /min 18 /min [facility] Oxygen 98 % 98 % [facility] saturation in Medical Arterial blood Center by Pulse oximetry Heart rate 89 /min 89 /min [facility] Body height 180.301935 cm 180.661991 cm [facility] Diastolic blood 88 mm[Hg] 88 mm[Hg] [facility] Systolic blood 154 mm[Hg] 154 mm[Hg] [facility] Body mass index 33.8 kg/m2 33.8 kg/m2 [facility] (BMI) [Ratio] Medical Center Body temperature 36.482842 Kaylie 36.504735 Kaylie [facility] Respiratory rate 17 /min 17 /min [facility] Oxygen 99 % 99 % [facility] saturation in Medical Arterial blood Center by Pulse oximetry Heart rate 81 /min 81 /min [facility] Diastolic blood 71 mm[Hg] 71 mm[Hg] [facility] pressure Medical Center Systolic blood 118 mm[Hg] 118 mm[Hg] [facility] Body temperature 36.394917 Kaylie 36.704432 Kaylie [facility] Respiratory rate 18 /min 18 /min [facility] Oxygen 99 % 99 % [facility] saturation in Medical Arterial blood Center by Pulse oximetry Heart rate 78 /min 78 /min [facility] Diastolic blood 77 mm[Hg] 77 mm[Hg] [facility] Systolic blood 129 mm[Hg] 129 mm[Hg] [facility] Body temperature 37.934137 Kaylie 37.633459 Kay[facility] Respiratory rate 17 /min 17 /min [facility] Oxygen 97 % 97 % [facility] saturation in Medical Arterial blood Center by Pulse oximetry Heart rate 79 /min 79 /min [facility] Diastolic blood 75 mm[Hg] 75 mm[Hg] [facility] pressure Medical Center Systolic blood 136 mm[Hg] 136 mm[Hg] [facility] Body temperature 36.167955 Kaylie 36.898097 Kaylie [facility] Respiratory rate 17 /min 17 /min [facility] Oxygen 98 % 98 % [facility] saturation in Medical Arterial blood Center by Pulse oximetry Heart rate 88 /min 88 /min [facility] Diastolic blood 81 mm[Hg] 81 mm[Hg] [facility] Systolic blood 159 mm[Hg] 159 mm[Hg] [facility] Body temperature 36.630159 Kaylie 36.367195 Kaylie [facility] Respiratory rate 18 /min 18 /min [facility] Oxygen 97 % 97 % [facility] saturation in Medical Arterial blood Center by Pulse oximetry Heart rate 88 /min 88 /min [facility] Diastolic blood 75 mm[Hg] 75 mm[Hg] [facility] Systolic blood 145 mm[Hg] 145 mm[Hg] [facility] Body temperature 36.681096 Kaylie 36.818596 Kay[facility] Respiratory rate 17 /min 17 /min [facility] Oxygen 97 % 97 % [facility] saturation in Medical Arterial blood Center by Pulse oximetry Heart rate 90 /min 90 /min [facility] Diastolic blood 78 mm[Hg] 78 mm[Hg] [facility] pressure Medical Center Systolic blood 160 mm[Hg] 160 mm[Hg] [facility] Body temperature 37.464724 Kaylie 37.550664 Kay[facility] Respiratory rate 18 /min 18 /min [facility] Oxygen 95 % 95 % [facility] saturation in Medical Arterial blood Center by Pulse oximetry Heart rate 93 /min 93 /min [facility] Diastolic blood 80 mm[Hg] 80 mm[Hg] [facility] Systolic blood 198 mm[Hg] 198 mm[Hg] [facility] Body temperature 37.682631 Kaylie 37.973345 Kay[facility] Respiratory rate 18 /min 18 /min [facility] Oxygen 95 % 95 % [facility] saturation in Medical Arterial blood Center by Pulse oximetry Heart rate 92 /min 92 /min [facility] Diastolic blood 71 mm[Hg] 71 mm[Hg] [facility] pressure Medical Center Systolic blood 139 mm[Hg] 139 mm[Hg] [facility] Body temperature 36.363552 Kaylie 36.215216 Kay[facility] Respiratory rate 17 /min 17 /min [facility] Oxygen 98 % 98 % [facility] saturation in Medical Arterial blood Center by Pulse oximetry Heart rate 89 /min 89 /min [facility] Diastolic blood 83 mm[Hg] 83 mm[Hg] [facility] pressure Medical Center Systolic blood 159 mm[Hg] 159 mm[Hg] [facility] Body temperature 36.122743 Kaylie 36.516420 Kay[facility] Respiratory rate 18 /min 18 /min [facility] Oxygen 97 % 97 % [facility] saturation in Medical Arterial blood Center by Pulse oximetry Heart rate 81 /min 81 /min [facility] Diastolic blood 74 mm[Hg] 74 mm[Hg] [facility] Systolic blood 117 mm[Hg] 117 mm[Hg] [facility] Body temperature 37.437873 Kaylie 37.712074 Kay[facility] Respiratory rate 19 /min 19 /min [facility] Oxygen 98 % 98 % [facility] saturation in Medical Arterial blood Center by Pulse oximetry Heart rate 88 /min 88 /min [facility] Diastolic blood 87 mm[Hg] 87 mm[Hg] [facility] pressure Medical Center Systolic blood 149 mm[Hg] 149 mm[Hg] [facility] Body temperature 37.912861 Kaylie 37.268340 Kay[facility] Respiratory rate 20 /min 20 /min [facility] Oxygen 97 % 97 % [facility] saturation in Medical Arterial blood Center by Pulse oximetry Heart rate 92 /min 92 /min [facility] Diastolic blood 85 mm[Hg] 85 mm[Hg] [facility] Systolic blood 152 mm[Hg] 152 mm[Hg] [facility] Body temperature 36.227822 Kaylie 36.988223 Kay[facility] Respiratory rate 18 /min 18 /min [facility] Oxygen 100 % 100 % [facility] saturation in Medical Arterial blood Center by Pulse oximetry Heart rate 70 /min 70 /min [facility] Diastolic blood 74 mm[Hg] 74 mm[Hg] [facility] Systolic blood 129 mm[Hg] 129 mm[Hg] [facility] Body weight 99.141630 kg 99.854061 kg [facility] Body temperature 36.997355 Kaylie 36.484036 Kay[facility] Respiratory rate 18 /min 18 /min [facility] Oxygen 98 % 98 % [place] saturation in Medical Arterial blood Center by Pulse oximetry Heart rate 78 /min 78 /min [facility] Body height 182.739204 cm 182.149344 cm [facility] Diastolic blood 74 mm[Hg] 74 mm[Hg] [facility] pressure Medical Center Systolic blood 128 mm[Hg] 128 mm[Hg] [facility] Body mass index 29.8 kg/m2 29.8 kg/m2 [facility] (BMI) [Ratio] Medical Center Body temperature 36.734249 Kaylie 36.243307 [facility] Respiratory rate 20 /min 20 /min [facility] Oxygen 94 % 94 % [facility] saturation in Medical Arterial blood Center by Pulse oximetry Heart rate 92 /min 92 /min [facility] Diastolic blood 87 mm[Hg] 87 mm[Hg] [facility] pressure Medical Center Systolic blood 143 mm[Hg] 143 mm[Hg] [facility] Body temperature 36.928602 Kaylie 36.044182 [facility] Respiratory rate 18 /min 18 /min [facility] Oxygen 96 % 96 % [facility] saturation in Medical Arterial blood Center by Pulse oximetry Heart rate 87 /min 87 /min [facility] Diastolic blood 84 mm[Hg] 84 mm[Hg] [facility] Systolic blood 136 mm[Hg] 136 mm[Hg] [facility] Body temperature 37.041672 Kaylie 37.407068 Kaylie [facility] Respiratory rate 18 /min 18 /min [facility] Oxygen 96 % 96 % [facility] saturation in Medical Arterial blood Center by Pulse oximetry Heart rate 90 /min 90 /min [facility] Diastolic blood 63 mm[Hg] 63 mm[Hg] [facility] pressure [facility] Center Systolic blood 136 mm[Hg] 136 mm[Hg] [facility] Body temperature 36.946203 Kaylie 36.828812 Kaylie [facility] Respiratory rate 18 /min 18 /min [facility] Oxygen 96 % 96 % [facility] saturation in Medical Arterial blood Center by Pulse oximetry Heart rate 109 /min 109 /min [facility] Diastolic blood 71 mm[Hg] 71 mm[Hg] [facility] pressure [facility] Center Systolic blood 130 mm[Hg] 130 mm[Hg] [facility] Body temperature 36.695583 Kaylie 36.340857 Kaylie [facility] Respiratory rate 18 /min 18 /min [facility] Heart rate 132 /min 132 /min [facility] Diastolic blood 76 mm[Hg] 76 mm[Hg] [facility] Center Systolic blood 137 mm[Hg] 137 mm[Hg] [facility] Body temperature 36.458171 Kaylie 36.646067 Kaylie [facility] Respiratory rate 17 /min 17 /min [facility] Oxygen 97 % 97 % [facility] saturation in Medical Arterial blood Center by Pulse oximetry Heart rate 104 /min 104 /min [facility] Diastolic blood 81 mm[Hg] 81 mm[Hg] [facility] pressure [facility] Center Systolic blood 143 mm[Hg] 143 mm[Hg] [facility] Body temperature 36.288648 Kaylie 36.082102 Kaylie [facility] Respiratory rate 19 /min 19 /min [facility] Oxygen 95 % 95 % [facility] saturation in Medical Arterial blood Center by Pulse oximetry Heart rate 92 /min 92 /min [facility] Diastolic blood 96 mm[Hg] 96 mm[Hg] [facility] pressure [facility] Center Systolic blood 155 mm[Hg] 155 mm[Hg] [facility] Body temperature 37.963346 Kaylie 37.471382 Kaylie [facility] Respiratory rate 18 /min 18 /min [facility] Oxygen 95 % 95 % [facility] saturation in Medical Arterial blood Center by Pulse oximetry Heart rate 104 /min 104 /min [facility] Diastolic blood 78 mm[Hg] 78 mm[Hg] [facility] pressure [facility] Center Systolic blood 155 mm[Hg] 155 mm[Hg] [facility] Body temperature 36.876401 Kaylie 36.159202 Kaylie [facility] Respiratory rate 17 /min 17 /min [facility] Heart rate 95 /min 95 /min [facility] Diastolic blood 93 mm[Hg] 93 mm[Hg] [facility] Center Systolic blood 156 mm[Hg] 156 mm[Hg] [facility] Body temperature 36.308806 Kaylie 36.615366 Kaylie [facility] Respiratory rate 18 /min 18 /min [facility] Oxygen 98 % 98 % [facility] saturation in Medical Arterial blood Center by Pulse oximetry Heart rate 98 /min 98 /min [facility] Diastolic blood 94 mm[Hg] 94 mm[Hg] [facility] Systolic blood 156 mm[Hg] 156 mm[Hg] [facility] Body temperature 36.127517 Kaylie 36.679973 Kaylie [facility] Respiratory rate 18 /min 18 /min [facility] Oxygen 98 % 98 % [facility] saturation in Medical Arterial blood Center by Pulse oximetry Heart rate 91 /min 91 /min [facility] Diastolic blood 96 mm[Hg] 96 mm[Hg] [facility] pressure [facility] Center Systolic blood 146 mm[Hg] 146 mm[Hg] [facility] Respiratory rate 16 /min 16 /min [facility] Oxygen 95 % 95 % [facility] saturation in Medical Arterial blood Center by Pulse oximetry Heart rate 101 /min 101 /min [facility] Diastolic blood 93 mm[Hg] 93 mm[Hg] [facility] Systolic blood 152 mm[Hg] 152 mm[Hg] [facility] Body temperature 36.533463 Kaylie 36.482981 Kaylie [facility] Respiratory rate 18 /min 18 /min [facility] Oxygen 96 % 96 % [facility] saturation in Medical Arterial blood Center by Pulse oximetry Heart rate 99 /min 99 /min [facility] Diastolic blood 95 mm[Hg] 95 mm[Hg] [facility] Systolic blood 182 mm[Hg] 182 mm[Hg] [facility] Body temperature 37.616420 Kaylie 37.406595 Kaylie [facility] Respiratory rate 16 /min 16 /min [facility] Oxygen 95 % 95 % [facility] saturation in Medical Arterial blood Center by Pulse oximetry Heart rate 105 /min 105 /min [facility] Diastolic blood 102 mm[Hg] 102 mm[Hg] [facility] Systolic blood 154 mm[Hg] 154 mm[Hg] [facility] Body temperature 37.114688 Kaylie 37.194286 Kaylie [facility] Respiratory rate 19 /min 19 /min [facility] Oxygen 95 % 95 % [facility] saturation in Medical Arterial blood Center by Pulse oximetry Heart rate 99 /min 99 /min [facility] Diastolic blood 99 mm[Hg] 99 mm[Hg] [facility] pressure [facility] Center Systolic blood 175 mm[Hg] 175 mm[Hg] [facility] Body temperature 36.864442 Kaylie 36.180234 Kaylie [facility] Respiratory rate 19 /min 19 /min [facility] Oxygen 97 % 97 % [facility] saturation in Medical Arterial blood Center by Pulse oximetry Heart rate 89 /min 89 /min [facility] Diastolic blood 93 mm[Hg] 93 mm[Hg] [facility] pressure [facility] Center Systolic blood 155 mm[Hg] 155 mm[Hg] [facility] Body temperature 36.226050 Kaylie 36.127834 Kaylie [facility] Body temperature 36.273334 Kaylie 36.368539 Kaylie [facility] Respiratory rate 18 /min 18 /min [facility] Oxygen 97 % 97 % [facility] saturation in Medical Arterial blood Center by Pulse oximetry Heart rate 76 /min 76 /min [facility] Diastolic blood 72 mm[Hg] 72 mm[Hg] [facility] pressure [facility] Center Systolic blood 138 mm[Hg] 138 mm[Hg] [facility] Body temperature 36.217454 Kaylie 36.371599 Kaylie [facility] Respiratory rate 17 /min 17 /min [facility] Oxygen 96 % 96 % [facility] saturation in Medical Arterial blood Center by Pulse oximetry Heart rate 78 /min 78 /min [facility] Diastolic blood 69 mm[Hg] 69 mm[Hg] [facility] pressure [facility] Center Systolic blood 142 mm[Hg] 142 mm[Hg] [facility] Body temperature 36.665455 Kaylie 36.092561 Kaylie [facility] Respiratory rate 18 /min 18 /min [facility] Oxygen 97 % 97 % [facility] saturation in Medical Arterial blood Center by Pulse oximetry Heart rate 83 /min 83 /min [facility] Diastolic blood 81 mm[Hg] 81 mm[Hg] [facility] pressure [facility] Center Systolic blood 159 mm[Hg] 159 mm[Hg] [facility] Body temperature 36.225784 Kaylie 36.400283 Kaylie [facility] Respiratory rate 18 /min 18 /min [facility] Oxygen 94 % 94 % [facility] saturation in Medical Arterial blood Center by Pulse oximetry Heart rate 89 /min 89 /min [facility] Diastolic blood 89 mm[Hg] 89 mm[Hg] [facility] Systolic blood 139 mm[Hg] 139 mm[Hg] [facility] Body temperature 36.599194 Kaylie 36.169395 Kaylie [facility] Respiratory rate 19 /min 19 /min [facility] Oxygen 95 % 95 % [facility] saturation in Medical Arterial blood Center by Pulse oximetry Heart rate 88 /min 88 /min [facility] Diastolic blood 82 mm[Hg] 82 mm[Hg] [facility] pressure [facility] Center Systolic blood 156 mm[Hg] 156 mm[Hg] [facility] Body temperature 36.009846 Kaylie 36.556526 Kaylie [facility] Respiratory rate 18 /min 18 /min [facility] Oxygen 98 % 98 % [facility] saturation in Medical Arterial blood Center by Pulse oximetry Heart rate 74 /min 74 /min [facility] Diastolic blood 78 mm[Hg] 78 mm[Hg] [facility] pressure [facility] Center Systolic blood 128 mm[Hg] 128 mm[Hg] [facility] Body temperature 36.549523 Kaylie 36.867115 Kaylie [facility] Respiratory rate 17 /min 17 /min [facility] Oxygen 99 % 99 % [facility] saturation in Medical Arterial blood Center by Pulse oximetry Heart rate 80 /min 80 /min [facility] Diastolic blood 92 mm[Hg] 92 mm[Hg] [facility] Systolic blood 144 mm[Hg] 144 mm[Hg] [facility] Body weight 88.171037 kg 88.231960 kg [facility] Body temperature 36.232465 Kaylie 36.770260 Kaylie [facility] Respiratory rate 17 /min 17 /min [facility] Oxygen 99 % 99 % [facility] saturation in Medical Arterial blood Center by Pulse oximetry Heart rate 78 /min 78 /min [facility] Body height 177.481516 cm 177.398336 cm [facility] Diastolic blood 88 mm[Hg] 88 mm[Hg] [facility] pressure [facility] Center Systolic blood 142 mm[Hg] 142 mm[Hg] [facility] Body mass index 27.8 kg/m2 27.8 kg/m2 [facility] (BMI) [Ratio] [facility] Center Body temperature 37.194744 Kaylie 37.053424 Kaylie [facility] Respiratory rate 18 /min 18 /min [facility] Oxygen 96 % 96 % [facility] saturation in Medical Arterial blood Center by Pulse oximetry Heart rate 97 /min 97 /min [facility] Diastolic blood 95 mm[Hg] 95 mm[Hg] [facility] pressure [facility] Center Systolic blood 157 mm[Hg] 157 mm[Hg] [facility] Body temperature 37.465884 Kaylie 37.044064 Kaylie [facility] Respiratory rate 18 /min 18 /min [facility] Oxygen 95 % 95 % [place] saturation in Medical Arterial blood Center by Pulse oximetry Heart rate 99 /min 99 /min [facility] Diastolic blood 81 mm[Hg] 81 mm[Hg] [facility] pressure [facility] Center Systolic blood 121 mm[Hg] 121 mm[Hg] [facility] Body temperature 36.420510 Kaylie 36.384037 Kaylie [facility] Respiratory rate 18 /min 18 /min [facility] Oxygen 97 % 97 % [place] saturation in Medical Arterial blood Center by Pulse oximetry Heart rate 89 /min 89 /min [facility] Diastolic blood 70 mm[Hg] 70 mm[Hg] [facility] pressure [facility] Center Systolic blood 126 mm[Hg] 126 mm[Hg] [facility] Body weight 104.352905 kg 104.070078 kg [facility] Body temperature 36.872167 Kaylie 36.088195 Kaylie [facility] Respiratory rate 17 /min 17 /min [facility] Oxygen 98 % 98 % [place] saturation in Medical Arterial blood Center by Pulse oximetry Heart rate 98 /min 98 /min [facility] Body height 177.302204 cm 177.119389 cm [facility] Diastolic blood 60 mm[Hg] 60 mm[Hg] [facility] Systolic blood 116 mm[Hg] 116 mm[Hg] [facility] Body mass index 33.0 kg/m2 33.0 kg/m2 [facility] (BMI) [Ratio] Medical Center Body temperature 36.324303 Kaylie 36.076626 Kaylie [facility] Respiratory rate 17 /min 17 /min [facility] Oxygen 98 % 98 % [facility] saturation in Medical Arterial blood Center by Pulse oximetry Heart rate 84 /min 84 /min [facility] Diastolic blood 91 mm[Hg] 91 mm[Hg] [facility] Systolic blood 153 mm[Hg] 153 mm[Hg] [facility] Body temperature 36.613641 Kaylie 36.015926 Kaylie [facility] Respiratory rate 16 /min 16 /min [facility] Heart rate 75 /min 75 /min [facility] Diastolic blood 76 mm[Hg] 76 mm[Hg] [facility] Systolic blood 136 mm[Hg] 136 mm[Hg] [facility] Body temperature 36.583080 Kaylie 36.369165 Kaylie [facility] Respiratory rate 17 /min 17 /min [facility] Oxygen 98 % 98 % [facility] saturation in Medical Arterial blood Center by Pulse oximetry Heart rate 76 /min 76 /min [facility] Diastolic blood 81 mm[Hg] 81 mm[Hg] [facility] Systolic blood 149 mm[Hg] 149 mm[Hg] [facility] Body temperature 36.061373 Kaylie 36.081019 Kaylie [facility] Respiratory rate 18 /min 18 /min [facility] Oxygen 96 % 96 % [facility] saturation in Medical Arterial blood Center by Pulse oximetry Heart rate 89 /min 89 /min [facility] Diastolic blood 68 mm[Hg] 68 mm[Hg] [facility] Systolic blood 132 mm[Hg] 132 mm[Hg] [facility] Body temperature 36.640713 Kaylie 36.092219 Kaylie [facility] Respiratory rate 18 /min 18 /min [facility] Oxygen 96 % 96 % [facility] [place] saturation in Medical Arterial blood Center by Pulse oximetry Heart rate 84 /min 84 /min [facility] Diastolic blood 71 mm[Hg] 71 mm[Hg] [facility] Systolic blood 119 mm[Hg] 119 mm[Hg] [facility] Body temperature 36.324156 Kaylie 36.398935 Kaylie [facility] Respiratory rate 19 /min 19 /min [facility] Oxygen 96 % 96 % [facility] [place] saturation in Medical Arterial blood Center by Pulse oximetry Heart rate 83 /min 83 /min [facility] Diastolic blood 66 mm[Hg] 66 mm[Hg] [facility] Systolic blood 123 mm[Hg] 123 mm[Hg] [facility] Body temperature 36.450749 Kaylie 36.539748 Kaylie [facility] Respiratory rate 18 /min 18 /min [facility] Oxygen 98 % 98 % [facility] [place] saturation in Medical Arterial blood Center by Pulse oximetry Heart rate 76 /min 76 /min [facility] Diastolic blood 80 mm[Hg] 80 mm[Hg] [facility] pressure Medical Center Systolic blood 115 mm[Hg] 115 mm[Hg] [facility] Body temperature 36.814151 Kaylie 36.679419 Kaylie [facility] Body temperature 36.736590 Kaylie 36.643504 Kaylie [facility] Respiratory rate 18 /min 18 /min [facility] Oxygen 96 % 96 % [facility] [place] saturation in Medical Arterial blood Center by Pulse oximetry Heart rate 88 /min 88 /min [facility] Diastolic blood 72 mm[Hg] 72 mm[Hg] [facility] pressure [facility] Center Systolic blood 111 mm[Hg] 111 mm[Hg] [facility] Body temperature 36.501112 Kaylie 36.580153 Kaylie [facility] Respiratory rate 18 /min 18 /min [facility] Oxygen 96 % 96 % [facility] [place] saturation in Medical Arterial blood Center by Pulse oximetry Heart rate 87 /min 87 /min [facility] Diastolic blood 85 mm[Hg] 85 mm[Hg] [facility] Systolic blood 136 mm[Hg] 136 mm[Hg] [facility] Body temperature 36.056910 Kaylie 36.682823 Kaylie [facility] Respiratory rate 17 /min 17 /min [facility] Oxygen 91 % 91 % [facility] [place] saturation in Medical Arterial blood Center by Pulse oximetry Heart rate 87 /min 87 /min [facility] Diastolic blood 97 mm[Hg] 97 mm[Hg] [facility] Systolic blood 152 mm[Hg] 152 mm[Hg] [facility] Body temperature 36.748889 Kaylie 36.079170 Kaylie [facility] Respiratory rate 20 /min 20 /min [facility] Oxygen 91 % 91 % [facility] [place] saturation in Medical Arterial blood Center by Pulse oximetry Heart rate 77 /min 77 /min [facility] Diastolic blood 78 mm[Hg] 78 mm[Hg] [facility] pressure Medical Center Systolic blood 140 mm[Hg] 140 mm[Hg] [facility] Body weight 105.227578 kg 105.652944 kg [facility] Body temperature 37.524609 Kaylie 37.213402 Kaylie [facility] Respiratory rate 20 /min 20 /min [facility] Oxygen 92 % 92 % [facility] saturation in Medical Arterial blood Center by Pulse oximetry Heart rate 89 /min 89 /min [facility] Diastolic blood 79 mm[Hg] 79 mm[Hg] [facility] Systolic blood 155 mm[Hg] 155 mm[Hg] [facility] Body temperature 36.820469 Kaylie 36.393925 Kaylie [facility] Respiratory rate 16 /min 16 /min [facility] Oxygen 98 % 98 % [facility] [place] saturation in Medical Arterial blood Center by Pulse oximetry Heart rate 81 /min 81 /min [facility] Diastolic blood 73 mm[Hg] 73 mm[Hg] [facility] Systolic blood 126 mm[Hg] 126 mm[Hg] [facility] Body temperature 36.100583 Kaylie 36.046840 Kaylie [facility] Respiratory rate 17 /min 17 /min [facility] Oxygen 98 % 98 % [facility] [place] saturation in Medical Arterial blood Center by Pulse oximetry Heart rate 67 /min 67 /min [facility] Diastolic blood 63 mm[Hg] 63 mm[Hg] [facility] Systolic blood 134 mm[Hg] 134 mm[Hg] [facility] Body temperature 36.329270 Kaylie 36.831049 Kaylie [facility] Respiratory rate 18 /min 18 /min [facility] Oxygen 97 % 97 % [facility] [place] saturation in Medical Arterial blood Center by Pulse oximetry Heart rate 69 /min 69 /min [facility] Diastolic blood 73 mm[Hg] 73 mm[Hg] [facility] pressure [facility] Center Systolic blood 119 mm[Hg] 119 mm[Hg] [facility] Body temperature 36.837567 Kaylie 36.971977 Kaylie [facility] Respiratory rate 17 /min 17 /min [facility] Oxygen 98 % 98 % [facility] saturation in Medical Arterial blood Center by Pulse oximetry Heart rate 71 /min 71 /min [facility] Diastolic blood 69 mm[Hg] 69 mm[Hg] [facility] Systolic blood 127 mm[Hg] 127 mm[Hg] [facility] Body temperature 36.904159 Kaylie 36.227236 Kaylie [facility] Respiratory rate 16 /min 16 /min [facility] Oxygen 100 % 100 % [facility] saturation in Medical Arterial blood Center by Pulse oximetry Heart rate 74 /min 74 /min [facility] Diastolic blood 85 mm[Hg] 85 mm[Hg] [facility] Systolic blood 130 mm[Hg] 130 mm[Hg] [facility] Body temperature 37.482144 Kaylie 37.501674 Kaylie [facility] Respiratory rate 18 /min 18 /min [facility] Oxygen 95 % 95 % [facility] saturation in Medical Arterial blood Center by Pulse oximetry Heart rate 77 /min 77 /min [facility] Diastolic blood 86 mm[Hg] 86 mm[Hg] [facility] Systolic blood 154 mm[Hg] 154 mm[Hg] [facility] Body temperature 36.447672 Kaylie 36.222120 Kaylie [facility] Respiratory rate 18 /min 18 /min [facility] Oxygen 98 % 98 % [facility] saturation in Medical Arterial blood Center by Pulse oximetry Heart rate 80 /min 80 /min [facility] Diastolic blood 90 mm[Hg] 90 mm[Hg] [facility] Systolic blood 170 mm[Hg] 170 mm[Hg] [facility] Body temperature 36.128395 Kaylie 36.584910 Kaylie [facility] Respiratory rate 18 /min 18 /min [facility] Oxygen 95 % 95 % [facility] [place] saturation in Medical Arterial blood Center by Pulse oximetry Heart rate 70 /min 70 /min [facility] Diastolic blood 103 mm[Hg] 103 mm[Hg] [facility] pressure [facility] Center Systolic blood 166 mm[Hg] 166 mm[Hg] [facility] Body temperature 36.604509 Kaylie 36.448993 Kaylie [facility] Respiratory rate 18 /min 18 /min [facility] Oxygen 97 % 97 % [facility] [place] saturation in Medical Arterial blood Center by Pulse oximetry Heart rate 87 /min 87 /min [facility] Diastolic blood 72 mm[Hg] 72 mm[Hg] [facility] pressure [facility] Center Systolic blood 138 mm[Hg] 138 mm[Hg] [facility] Body temperature 36.362970 Kaylie 36.514643 Kaylie [facility] Respiratory rate 16 /min 16 /min [facility] Oxygen 98 % 98 % [facility] saturation in Medical Arterial blood Center by Pulse oximetry Heart rate 74 /min 74 /min [facility] Diastolic blood 71 mm[Hg] 71 mm[Hg] [facility] Systolic blood 146 mm[Hg] 146 mm[Hg] [facility] Body weight 102.252629 kg 102.507136 kg [facility] Body temperature 36.042833 Kaylie 36.933790 Kaylie [facility] Respiratory rate 17 /min 17 /min [facility] Oxygen 98 % 98 % [facility] saturation in Medical Arterial blood Center by Pulse oximetry Heart rate 78 /min 78 /min [facility] Body height 177.606802 cm 177.523200 cm [facility] Diastolic blood 78 mm[Hg] 78 mm[Hg] [facility] Systolic blood 118 mm[Hg] 118 mm[Hg] [facility] Body mass index 32.2 kg/m2 32.2 kg/m2 [facility] (BMI) [Ratio] Medical Center Body temperature 37.640665 Kaylie 37.152502 Kaylie [facility] Respiratory rate 18 /min 18 /min [facility] Oxygen 99 % 99 % [facility] [place] saturation in Medical Arterial blood Center by Pulse oximetry Heart rate 88 /min 88 /min [facility] Diastolic blood 79 mm[Hg] 79 mm[Hg] [facility] pressure [facility] Center Systolic blood 134 mm[Hg] 134 mm[Hg] [facility] Body temperature 37.426549 Kaylie 37.526801 Kaylie [facility] Respiratory rate 18 /min 18 /min [facility] Oxygen 95 % 95 % [facility] saturation in Medical Arterial blood Center by Pulse oximetry Heart rate 82 /min 82 /min [facility] Diastolic blood 79 mm[Hg] 79 mm[Hg] [facility] Systolic blood 144 mm[Hg] 144 mm[Hg] [facility] Body temperature 37.359024 Kaylie 37.041074 Kaylie [facility] Respiratory rate 18 /min 18 /min [facility] Oxygen 95 % 95 % [facility] saturation in Medical Arterial blood Center by Pulse oximetry Heart rate 86 /min 86 /min [facility] Diastolic blood 92 mm[Hg] 92 mm[Hg] [facility] Systolic blood 112 mm[Hg] 112 mm[Hg] [facility] Body temperature 37.537897 Kaylie 37.895700 Kaylie [facility] Respiratory rate 19 /min 19 /min [facility] Oxygen 90 % 90 % [facility] saturation in Medical Arterial blood Center by Pulse oximetry Heart rate 84 /min 84 /min [facility] Diastolic blood 92 mm[Hg] 92 mm[Hg] [facility] Systolic blood 142 mm[Hg] 142 mm[Hg] [facility] Body temperature 36.370268 Kaylie 36.753431 Kaylie [facility] Respiratory rate 20 /min 20 /min [facility] Oxygen 90 % 90 % [facility] saturation in Medical Arterial blood Center by Pulse oximetry Heart rate 88 /min 88 /min [facility] Diastolic blood 97 mm[Hg] 97 mm[Hg] [facility] Systolic blood 127 mm[Hg] 127 mm[Hg] [facility] Body temperature 36.814684 Kaylie 36.957523 Kaylie [facility] Respiratory rate 18 /min 18 /min [facility] Oxygen 99 % 99 % [facility] saturation in Medical Arterial blood Center by Pulse oximetry Heart rate 78 /min 78 /min [facility] Diastolic blood 80 mm[Hg] 80 mm[Hg] [facility] Center Systolic blood 144 mm[Hg] 144 mm[Hg] [facility] Body temperature 36.647634 Kaylie 36.448695 Kaylie [facility] Respiratory rate 18 /min 18 /min [facility] Oxygen 97 % 97 % [facility] saturation in Medical Arterial blood Center by Pulse oximetry Heart rate 88 /min 88 /min [facility] Diastolic blood 76 mm[Hg] 76 mm[Hg] [facility] Systolic blood 148 mm[Hg] 148 mm[Hg] [facility] Body temperature 36.105387 Kaylie 36.176582 Kaylie [facility] Respiratory rate 19 /min 19 /min [facility] Oxygen 96 % 96 % [facility] saturation in Medical Arterial blood Center by Pulse oximetry Heart rate 100 /min 100 /min [facility] Diastolic blood 68 mm[Hg] 68 mm[Hg] [facility] Systolic blood 121 mm[Hg] 121 mm[Hg] [facility] Body temperature 37.798663 Kaylie 37.077424 Kaylie [facility] Respiratory rate 17 /min 17 /min [facility] Oxygen 98 % 98 % [facility] saturation in Medical Arterial blood Center by Pulse oximetry Heart rate 105 /min 105 /min [facility] Diastolic blood 65 mm[Hg] 65 mm[Hg] [facility] Systolic blood 119 mm[Hg] 119 mm[Hg] [facility] Body temperature 36.319918 Kaylie 36.841681 Kaylie [facility] Respiratory rate 17 /min 17 /min [facility] Oxygen 98 % 98 % [facility] saturation in Medical Arterial blood Center by Pulse oximetry Heart rate 100 /min 100 /min [facility] Diastolic blood 73 mm[Hg] 73 mm[Hg] [facility] Systolic blood 121 mm[Hg] 121 mm[Hg] [facility] Body temperature 36.977202 Kaylie 36.373728 Kaylie [facility] Respiratory rate 17 /min 17 /min [facility] Oxygen 98 % 98 % [facility] saturation in Medical Arterial blood Center by Pulse oximetry Heart rate 69 /min 69 /min [facility] Diastolic blood 75 mm[Hg] 75 mm[Hg] [facility] Center Systolic blood 129 mm[Hg] 129 mm[Hg] [facility] Body temperature 36.867291 Kaylie 36.113355 Kaylie [facility] Respiratory rate 18 /min 18 /min [facility] Oxygen 98 % 98 % [facility] saturation in Medical Arterial blood Center by Pulse oximetry Heart rate 82 /min 82 /min [facility] Diastolic blood 73 mm[Hg] 73 mm[Hg] [facility] Center Systolic blood 128 mm[Hg] 128 mm[Hg] [facility] Body temperature 36.635377 Kaylie 36.973013 Kaylie [facility] Respiratory rate 18 /min 18 /min [facility] Oxygen 96 % 96 % [facility] saturation in Medical Arterial blood Center by Pulse oximetry Heart rate 81 /min 81 /min [facility] Diastolic blood 78 mm[Hg] 78 mm[Hg] [facility] Systolic blood 126 mm[Hg] 126 mm[Hg] [facility] Body temperature 36.644643 Kaylie 36.398712 Kaylie [facility] Respiratory rate 18 /min 18 /min [facility] Oxygen 97 % 97 % [facility] saturation in Medical Arterial blood Center by Pulse oximetry Heart rate 79 /min 79 /min [facility] Diastolic blood 72 mm[Hg] 72 mm[Hg] [facility] Systolic blood 129 mm[Hg] 129 mm[Hg] [facility] Body temperature 36.305597 Kaylie 36.034115 Kaylie [facility] Respiratory rate 17 /min 17 /min [facility] Oxygen 98 % 98 % [facility] saturation in Medical Arterial blood Center by Pulse oximetry Heart rate 88 /min 88 /min [facility] Diastolic blood 71 mm[Hg] 71 mm[Hg] [facility] Systolic blood 126 mm[Hg] 126 mm[Hg] [facility] Body temperature 36.028092 Kaylie 36.532523 Kaylie [facility] Respiratory rate 18 /min 18 /min [facility] Oxygen 98 % 98 % [facility] saturation in Medical Arterial blood Center by Pulse oximetry Heart rate 76 /min 76 /min [facility] Diastolic blood 72 mm[Hg] 72 mm[Hg] [facility] Center Systolic blood 126 mm[Hg] 126 mm[Hg] [facility] Systolic blood 132 mm[Hg] 132 mm[Hg] [facility] Body temperature 36.823369 Kaylie 36.666720 Kaylie [facility] Respiratory rate 17 /min 17 /min [facility] Oxygen 97 % 97 % [facility] saturation in Medical Arterial blood Center by Pulse oximetry Heart rate 90 /min 90 /min [facility] Diastolic blood 85 mm[Hg] 85 mm[Hg] [facility] Body temperature 37.934245 Kaylie 37.504419 Kaylie [facility] Respiratory rate 18 /min 18 /min [facility] Oxygen 95 % 95 % [facility] saturation in Medical Arterial blood Center by Pulse oximetry Heart rate 95 /min 95 /min [facility] Diastolic blood 96 mm[Hg] 96 mm[Hg] [facility] Center Systolic blood 147 mm[Hg] 147 mm[Hg] [facility] Body temperature 36.324172 Kaylie 36.098997 Kaylie [facility] Respiratory rate 17 /min 17 /min [facility] Oxygen 95 % 95 % [facility] saturation in Medical Arterial blood Center by Pulse oximetry Heart rate 94 /min 94 /min [facility] Diastolic blood 90 mm[Hg] 90 mm[Hg] [facility] Center Systolic blood 163 mm[Hg] 163 mm[Hg] [facility] Body temperature 36.884185 Kaylie 36.178251 Kaylie [facility] Respiratory rate 17 /min 17 /min [facility] Oxygen 98 % 98 % [facility] saturation in Medical Arterial blood Center by Pulse oximetry Heart rate 96 /min 96 /min [facility] Diastolic blood 70 mm[Hg] 70 mm[Hg] [facility] Center Systolic blood 122 mm[Hg] 122 mm[Hg] [facility] Body temperature 36.948696 Kaylie 36.404821 Kaylie [facility] Respiratory rate 17 /min 17 /min [facility] Oxygen 98 % 98 % [facility] saturation in Medical Arterial blood Center by Pulse oximetry Heart rate 70 /min 70 /min [facility] Diastolic blood 65 mm[Hg] 65 mm[Hg] [facility] Center Systolic blood 127 mm[Hg] 127 mm[Hg] [facility] Body temperature 36.224688 Kaylie 36.897365 Kaylie [facility] Respiratory rate 16 /min 16 /min [facility] Oxygen 95 % 95 % [facility] saturation in Medical Arterial blood Center by Pulse oximetry Heart rate 94 /min 94 /min [facility] Diastolic blood 86 mm[Hg] 86 mm[Hg] [facility] Systolic blood 140 mm[Hg] 140 mm[Hg] [facility] Body temperature 36.723696 Kaylie 36.259166 Kaylie [facility] Respiratory rate 6 /min 6 /min [facility] Oxygen 96 % 96 % [facility] saturation in Medical Arterial blood Center by Pulse oximetry Heart rate 101 /min 101 /min [facility] Diastolic blood 90 mm[Hg] 90 mm[Hg] [facility] Center Systolic blood 156 mm[Hg] 156 mm[Hg] [facility] Body temperature 36.287535 Kaylie 36.352678 Kaylie [facility] Diastolic blood 78 mm[Hg] 78 mm[Hg] [facility] Systolic blood 138 mm[Hg] 138 mm[Hg] [facility] Respiratory rate 18 /min 18 /min [facility] Oxygen 97 % 97 % [facility] saturation in Medical Arterial blood Center by Pulse oximetry Heart rate 87 /min 87 /min [facility] Body temperature 36.991191 Kaylie 36.859061 Kaylie [facility] Respiratory rate 18 /min 18 /min [facility] Oxygen 96 % 96 % [facility] [place] saturation in Medical Arterial blood Center by Pulse oximetry Heart rate 96 /min 96 /min [facility] Diastolic blood 90 mm[Hg] 90 mm[Hg] [facility] Center Systolic blood 150 mm[Hg] 150 mm[Hg] [facility] Body temperature 37.943279 Kaylie 37.834780 Kaylie [facility] Respiratory rate 18 /min 18 /min [facility] Oxygen 96 % 96 % [facility] [place] saturation in Medical Arterial blood Center by Pulse oximetry Heart rate 108 /min 108 /min [facility] Diastolic blood 63 mm[Hg] 63 mm[Hg] [facility] Systolic blood 110 mm[Hg] 110 mm[Hg] [facility] Body weight 116.360394 kg 116.512044 kg [facility] Body height 177.281272 cm 177.126277 cm [facility] Body mass index 36.8 kg/m2 36.8 kg/m2 [facility] (BMI) [Ratio] [facility] Body temperature 36.015521 Kaylie 36.024575 Kaylie [facility] Respiratory rate 18 /min 18 /min [facility] Oxygen 98 % 98 % [facility] saturation in Medical Arterial blood Center by Pulse oximetry Heart rate 82 /min 82 /min [facility] Diastolic blood 90 mm[Hg] 90 mm[Hg] [facility] Systolic blood 135 mm[Hg] 135 mm[Hg] [facility] Body temperature 36.991271 Kaylie 36.755795 Kaylie [facility] Respiratory rate 18 /min 18 /min [facility] Oxygen 98 % 98 % [facility] [place] saturation in Medical Arterial blood Center by Pulse oximetry Heart rate 80 /min 80 /min [facility] Diastolic blood 80 mm[Hg] 80 mm[Hg] [facility] Systolic blood 124 mm[Hg] 124 mm[Hg] [facility] Body temperature 37.008157 Kaylie 37.719368 Kaylie [facility] Respiratory rate 17 /min 17 /min [facility] Oxygen 98 % 98 % [facility] saturation in Medical Arterial blood Center by Pulse oximetry Heart rate 90 /min 90 /min [facility] Diastolic blood 75 mm[Hg] 75 mm[Hg] [facility] Systolic blood 119 mm[Hg] 119 mm[Hg] [facility] Body temperature 37.037624 Kaylie 37.514331 Kaylie [facility] Respiratory rate 18 /min 18 /min [facility] Oxygen 95 % 95 % [facility] [place] saturation in Medical Arterial blood Center by Pulse oximetry Heart rate 96 /min 96 /min [facility] Diastolic blood 71 mm[Hg] 71 mm[Hg] [facility] Center Systolic blood 106 mm[Hg] 106 mm[Hg] [facility] Body temperature 37.984364 Kaylie 37.709954 Kaylie [facility] Respiratory rate 18 /min 18 /min [facility] Oxygen 96 % 96 % [facility] [place] saturation in Medical Arterial blood Center by Pulse oximetry Heart rate 96 /min 96 /min [facility] Diastolic blood 65 mm[Hg] 65 mm[Hg] [facility] Center Systolic blood 116 mm[Hg] 116 mm[Hg] [facility] Body temperature 36.901193 Kaylie 36.352585 Kaylie [facility] Respiratory rate 17 /min 17 /min [facility] Oxygen 96 % 96 % [facility] saturation in Medical Arterial blood Center by Pulse oximetry Heart rate 90 /min 90 /min [facility] Diastolic blood 74 mm[Hg] 74 mm[Hg] [facility] Systolic blood 129 mm[Hg] 129 mm[Hg] [facility] Body temperature 37.606668 Kaylie 37.966109 Kaylie [facility] Respiratory rate 17 /min 17 /min [facility] Oxygen 96 % 96 % [facility] saturation in Medical Arterial blood Center by Pulse oximetry Heart rate 93 /min 93 /min [facility] Diastolic blood 59 mm[Hg] 59 mm[Hg] [facility] Systolic blood 101 mm[Hg] 101 mm[Hg] [facility] Body temperature 37.749697 Kaylie 37.551634 Kaylie [facility] Respiratory rate 18 /min 18 /min [facility] Oxygen 98 % 98 % [facility] [place] saturation in Medical Arterial blood Center by Pulse oximetry Heart rate 89 /min 89 /min [facility] Diastolic blood 86 mm[Hg] 86 mm[Hg] [facility] Systolic blood 132 mm[Hg] 132 mm[Hg] [facility] Body temperature 37.671011 Kaylie 37.484633 Kaylie [facility] Respiratory rate 18 /min 18 /min [facility] Oxygen 99 % 99 % [place] saturation in Medical Arterial blood Center by Pulse oximetry Heart rate 71 /min 71 /min [facility] Diastolic blood 75 mm[Hg] 75 mm[Hg] [facility] Center Systolic blood 131 mm[Hg] 131 mm[Hg] [facility] Body temperature 37.769387 Kaylie 37.293801 Kaylie [facility] Respiratory rate 18 /min 18 /min [facility] Oxygen 95 % 95 % [place] saturation in Medical Arterial blood Center by Pulse oximetry Heart rate 104 /min 104 /min [facility] Diastolic blood 90 mm[Hg] 90 mm[Hg] [facility] Systolic blood 154 mm[Hg] 154 mm[Hg] [facility] Oxygen 96 % 96 % [place] saturation in Medical Arterial blood Center by Pulse oximetry Heart rate 100 /min 100 /min [facility] Diastolic blood 78 mm[Hg] 78 mm[Hg] [facility] Systolic blood 148 mm[Hg] 148 mm[Hg] [facility] Body temperature 37.134179 Kaylie 37.273964 Kaylie [facility] Respiratory rate 19 /min 19 /min [facility] Body temperature 36.773203 Kaylie 36.267519 Kaylie [facility] Respiratory rate 18 /min 18 /min [facility] Oxygen 97 % 97 % [place] saturation in Medical Arterial blood Center by Pulse oximetry Heart rate 100 /min 100 /min [facility] Diastolic blood 84 mm[Hg] 84 mm[Hg] [facility] Systolic blood 145 mm[Hg] 145 mm[Hg] [facility] Body weight 104.725066 kg 104.423019 kg [facility] Body height 177.700954 cm 177.523171 cm [facility] Body mass index 33.0 kg/m2 33.0 kg/m2 [facility] (BMI) [Ratio] [facility] Body temperature 36.148183 Kaylie 36.925202 Kaylie [facility] Respiratory rate 18 /min 18 /min [facility] Oxygen 95 % 95 % [facility] [place] saturation in Medical Arterial blood Center by Pulse oximetry Heart rate 99 /min 99 /min [facility] Diastolic blood 60 mm[Hg] 60 mm[Hg] [facility] Systolic blood 112 mm[Hg] 112 mm[Hg] [facility] Body temperature 36.894920 Kaylie 36.994907 Kaylie [facility] Respiratory rate 18 /min 18 /min [facility] Oxygen 95 % 95 % [facility] [place] saturation in Medical Arterial blood Center by Pulse oximetry Heart rate 89 /min 89 /min [facility] Diastolic blood 62 mm[Hg] 62 mm[Hg] [facility] Center Systolic blood 102 mm[Hg] 102 mm[Hg] [facility] Body temperature 37.453874 Kaylie 37.069623 Kaylie [facility] Respiratory rate 17 /min 17 /min [facility] Oxygen 95 % 95 % [facility] [place] saturation in Medical Arterial blood Center by Pulse oximetry Heart rate 92 /min 92 /min [facility] Diastolic blood 66 mm[Hg] 66 mm[Hg] [facility] Systolic blood 102 mm[Hg] 102 mm[Hg] [facility] Body temperature 36.038854 Kaylie 36.540188 Kaylie [facility] Respiratory rate 17 /min 17 /min [facility] Oxygen 93 % 93 % [facility] saturation in Medical Arterial blood Center by Pulse oximetry Heart rate 69 /min 69 /min [facility] Diastolic blood 69 mm[Hg] 69 mm[Hg] [facility] Systolic blood 125 mm[Hg] 125 mm[Hg] [facility] Body temperature 36.308132 Kaylie 36.055842 Kaylie [facility] Respiratory rate 18 /min 18 /min [facility] Oxygen 95 % 95 % [facility] saturation in Medical Arterial blood Center by Pulse oximetry Heart rate 67 /min 67 /min [facility] Diastolic blood 68 mm[Hg] 68 mm[Hg] [facility] Center Systolic blood 125 mm[Hg] 125 mm[Hg] [facility] Body temperature 36.985512 Kaylie 36.361864 Kaylie [facility] Respiratory rate 17 /min 17 /min [facility] Oxygen 96 % 96 % [facility] saturation in Medical Arterial blood Center by Pulse oximetry Heart rate 89 /min 89 /min [facility] Diastolic blood 88 mm[Hg] 88 mm[Hg] [facility] Systolic blood 143 mm[Hg] 143 mm[Hg] [facility] Oxygen 98 % 98 % [facility] [place] saturation in Medical Arterial blood Center by Pulse oximetry Heart rate 75 /min 75 /min [facility] Diastolic blood 68 mm[Hg] 68 mm[Hg] [facility] Center Systolic blood 129 mm[Hg] 129 mm[Hg] [facility] Body temperature 37.400379 Kaylie 37.074442 Kaylie [facility] Respiratory rate 17 /min 17 /min [facility] Respiratory rate 16 /min 16 /min [facility] Oxygen 93 % 93 % [facility] [place] saturation in Medical Arterial blood Center by Pulse oximetry Heart rate 92 /min 92 /min [facility] Diastolic blood 72 mm[Hg] 72 mm[Hg] [facility] Systolic blood 143 mm[Hg] 143 mm[Hg] [facility] Body temperature 37.890088 Kaylie 37.049596 Kaylie [facility] Respiratory rate 18 /min 18 /min [facility] Oxygen 98 % 98 % [facility] [place] saturation in Medical Arterial blood Center by Pulse oximetry Heart rate 86 /min 86 /min [facility] Diastolic blood 57 mm[Hg] 57 mm[Hg] [facility] Systolic blood 119 mm[Hg] 119 mm[Hg] [facility] Body temperature 37.413654 Kaylie 37.110232 Kaylie [facility] Respiratory rate 16 /min 16 /min [facility] Oxygen 92 % 92 % [facility] [place] saturation in Medical Arterial blood Center by Pulse oximetry Heart rate 88 /min 88 /min [facility] Diastolic blood 56 mm[Hg] 56 mm[Hg] [facility] Systolic blood 90 mm[Hg] 90 mm[Hg] [facility] Body weight 90.517178 kg 90.163620 kg [facility] Body temperature 37.511137 Kaylie 37.099723 Kaylie [facility] Respiratory rate 19 /min 19 /min [facility] Oxygen 93 % 93 % [facility] saturation in Medical Arterial blood Center by Pulse oximetry Heart rate 84 /min 84 /min [facility] Body height 177.783284 cm 177.591429 cm [facility] Diastolic blood 48 mm[Hg] 48 mm[Hg] [facility] Systolic blood 100 mm[Hg] 100 mm[Hg] [facility] Body mass index 28.4 kg/m2 28.4 kg/m2 [facility] (BMI) [Ratio] [facility] Body temperature 37.962374 Kaylie 37.129157 Kaylie [facility] Respiratory rate 18 /min 18 /min [facility] Oxygen 98 % 98 % [facility] [place] saturation in Medical Arterial blood Center by Pulse oximetry Heart rate 89 /min 89 /min [facility] Diastolic blood 78 mm[Hg] 78 mm[Hg] [facility] Systolic blood 145 mm[Hg] 145 mm[Hg] [facility] Body temperature 37.635429 Kaylie 37.468641 Kaylie [facility] Respiratory rate 20 /min 20 /min [facility] Oxygen 95 % 95 % [facility] saturation in Medical Arterial blood Center by Pulse oximetry Diastolic blood 90 mm[Hg] 90 mm[Hg] [facility] Systolic blood 154 mm[Hg] 154 mm[Hg] [facility] Body temperature 37.545768 Kaylie 37.095828 Kaylie [facility] Respiratory rate 20 /min 20 /min [facility] Oxygen 95 % 95 % [facility] saturation in Medical Arterial blood Center by Pulse oximetry Heart rate 91 /min 91 /min [facility] Diastolic blood 90 mm[Hg] 90 mm[Hg] [facility] Systolic blood 142 mm[Hg] 142 mm[Hg] [facility] Body temperature 36.702131 Kaylie 36.852895 Kaylie [facility] Respiratory rate 20 /min 20 /min [facility] Oxygen 98 % 98 % [facility] saturation in Medical Arterial blood Center by Pulse oximetry Heart rate 95 /min 95 /min [facility] Diastolic blood 61 mm[Hg] 61 mm[Hg] [facility] Center Systolic blood 102 mm[Hg] 102 mm[Hg] [facility] Body temperature 36.801139 Kaylie 36.377442 Kaylie [facility] Respiratory rate 19 /min 19 /min [facility] Oxygen 96 % 96 % [facility] saturation in Medical Arterial blood Center by Pulse oximetry Heart rate 74 /min 74 /min [facility] Diastolic blood 74 mm[Hg] 74 mm[Hg] [facility] Systolic blood 132 mm[Hg] 132 mm[Hg] [facility] Body weight 79.622944 kg 79.808596 kg [facility] Heart rate 71 /min 71 /min [facility] Body height 182.856071 cm 182.520449 cm [facility] Body mass index 23.7 kg/m2 23.7 kg/m2 [facility] (BMI) [Ratio] Medical Center Body temperature 37.803429 Kaylie 37.732225 Kaylie [facility] Respiratory rate 18 /min 18 /min [facility] Oxygen 96 % 96 % [place] saturation in Medical Arterial blood Center by Pulse oximetry Heart rate 87 /min 87 /min [facility] Diastolic blood 69 mm[Hg] 69 mm[Hg] [facility] Systolic blood 129 mm[Hg] 129 mm[Hg] [facility] Body temperature 36.985475 Kaylie 36.350143 Kaylie [facility] Respiratory rate 18 /min 18 /min [facility] Oxygen 95 % 95 % [facility] saturation in Medical Arterial blood Center by Pulse oximetry Heart rate 87 /min 87 /min [facility] Diastolic blood 75 mm[Hg] 75 mm[Hg] [facility] pressure [facility] Center Systolic blood 122 mm[Hg] 122 mm[Hg] [facility] Body temperature 37.618023 Kaylie 37.867748 Kaylie [facility] Respiratory rate 19 /min 19 /min [facility] Oxygen 95 % 95 % [facility] saturation in Medical Arterial blood Center by Pulse oximetry Heart rate 90 /min 90 /min [facility] Diastolic blood 78 mm[Hg] 78 mm[Hg] [facility] pressure [facility] Center Systolic blood 124 mm[Hg] 124 mm[Hg] [facility] Body temperature 37.470381 Kaylie 37.259010 Kaylie [facility] Respiratory rate 19 /min 19 /min [facility] Oxygen 95 % 95 % [facility] saturation in Medical Arterial blood Center by Pulse oximetry Heart rate 85 /min 85 /min [facility] Diastolic blood 70 mm[Hg] 70 mm[Hg] [facility] Systolic blood 129 mm[Hg] 129 mm[Hg] [facility] Body weight 104.097040 kg 104.075623 kg [facility] Body temperature 37.652971 Kaylie 37.542883 Kaylie [facility] Respiratory rate 86 /min 86 /min [facility] Oxygen 95 % 95 % [facility] saturation in Medical Arterial blood Center by Pulse oximetry Heart rate 86 /min 86 /min [facility] Body height 177.920050 cm 177.608792 cm [facility] Diastolic blood 74 mm[Hg] 74 mm[Hg] [facility] Systolic blood 137 mm[Hg] 137 mm[Hg] [facility] Body mass index 33.0 kg/m2 33.0 kg/m2 [facility] (BMI) [Ratio] Medical Center Body temperature 36.452457 Kaylie 36.126909 Kaylie [facility] Respiratory rate 18 /min 18 /min [facility] Oxygen 92 % 92 % [facility] saturation in Medical Arterial blood Center by Pulse oximetry Heart rate 100 /min 100 /min [facility] Diastolic blood 65 mm[Hg] 65 mm[Hg] [facility] Systolic blood 135 mm[Hg] 135 mm[Hg] [facility] Body temperature 37.248773 Kaylie 37.418815 Kaylie [facility] Respiratory rate 18 /min 18 /min [facility] Oxygen 95 % 95 % [facility] saturation in Medical Arterial blood Center by Pulse oximetry Heart rate 97 /min 97 /min [facility] Diastolic blood 89 mm[Hg] 89 mm[Hg] [facility] Systolic blood 157 mm[Hg] 157 mm[Hg] [facility] Body temperature 37.929495 Kaylie 37.869870 Kaylie [facility] Respiratory rate 18 /min 18 /min [facility] Oxygen 95 % 95 % [place] saturation in Medical Arterial blood Center by Pulse oximetry Heart rate 91 /min 91 /min [facility] Diastolic blood 60 mm[Hg] 60 mm[Hg] [facility] Systolic blood 118 mm[Hg] 118 mm[Hg] [facility] Body weight 104.685105 kg 104.037378 kg [facility] Body temperature 36.985097 Kaylie 36.698619 Kaylie [facility] Respiratory rate 17 /min 17 /min [facility] Oxygen 95 % 95 % [facility] saturation in Medical Arterial blood Center by Pulse oximetry Heart rate 89 /min 89 /min [facility] Body height 177.563921 cm 177.055324 cm [facility] Diastolic blood 88 mm[Hg] 88 mm[Hg] [facility] Systolic blood 127 mm[Hg] 127 mm[Hg] [facility] Body mass index 33.0 kg/m2 33.0 kg/m2 [facility] (BMI) [Ratio] Medical Center Body temperature 36.327719 Kaylie 36.808117 Kaylie [facility] Respiratory rate 17 /min 17 /min [facility] Oxygen 98 % 98 % [facility] saturation in Medical Arterial blood Center by Pulse oximetry Heart rate 88 /min 88 /min [facility] Diastolic blood 82 mm[Hg] 82 mm[Hg] [facility] Systolic blood 138 mm[Hg] 138 mm[Hg] [facility] Body temperature 36.615160 Kaylie 36.861421 Kaylie [facility] Respiratory rate 18 /min 18 /min [facility] Oxygen 98 % 98 % [facility] saturation in Medical Arterial blood Center by Pulse oximetry Heart rate 87 /min 87 /min [facility] Diastolic blood 84 mm[Hg] 84 mm[Hg] [facility] Systolic blood 145 mm[Hg] 145 mm[Hg] [facility] Body temperature 36.820613 Kaylie 36.929320 Kaylie [facility] Respiratory rate 18 /min 18 /min [facility] Oxygen 97 % 97 % [facility] saturation in Medical Arterial blood Center by Pulse oximetry Heart rate 87 /min 87 /min [facility] Diastolic blood 97 mm[Hg] 97 mm[Hg] [facility] Center Systolic blood 154 mm[Hg] 154 mm[Hg] [facility] Body temperature 36.824753 Kaylie 36.762775 Kaylie [facility] Respiratory rate 18 /min 18 /min [facility] Oxygen 98 % 98 % [facility] saturation in Medical Arterial blood Center by Pulse oximetry Heart rate 88 /min 88 /min [facility] Diastolic blood 78 mm[Hg] 78 mm[Hg] [facility] Systolic blood 145 mm[Hg] 145 mm[Hg] [facility] Body temperature 36.789314 Kaylie 36.195950 Kaylie [facility] Respiratory rate 18 /min 18 /min [facility] Oxygen 97 % 97 % [facility] saturation in Medical Arterial blood Center by Pulse oximetry Heart rate 77 /min 77 /min [facility] Diastolic blood 71 mm[Hg] 71 mm[Hg] [facility] Center Systolic blood 126 mm[Hg] 126 mm[Hg] [facility] Body temperature 36.416035 Kaylie 36.031626 Kaylie [facility] Respiratory rate 17 /min 17 /min [facility] Oxygen 94 % 94 % [facility] saturation in Medical Arterial blood Center by Pulse oximetry Heart rate 54 /min 54 /min [facility] Diastolic blood 64 mm[Hg] 64 mm[Hg] [facility] Systolic blood 113 mm[Hg] 113 mm[Hg] [facility] Respiratory rate 16 /min 16 /min [facility] Oxygen 97 % 97 % [facility] saturation in Medical Arterial blood Center by Pulse oximetry Heart rate 52 /min 52 /min [facility] Diastolic blood 80 mm[Hg] 80 mm[Hg] [facility] Center Systolic blood 130 mm[Hg] 130 mm[Hg] [facility] Body temperature 36.552816 Kaylie 36.003887 Kaylie [facility] Respiratory rate 18 /min 18 /min [facility] Oxygen 96 % 96 % [facility] saturation in Medical Arterial blood Center by Pulse oximetry Heart rate 96 /min 96 /min [facility] Diastolic blood 75 mm[Hg] 75 mm[Hg] [facility] Center Systolic blood 129 mm[Hg] 129 mm[Hg] [facility] Body temperature 37.252468 Kaylie 37.737288 Kaylie [facility] Respiratory rate 19 /min 19 /min [facility] Oxygen 96 % 96 % [facility] saturation in Medical Arterial blood Center by Pulse oximetry Heart rate 98 /min 98 /min [facility] Diastolic blood 77 mm[Hg] 77 mm[Hg] [facility] Systolic blood 132 mm[Hg] 132 mm[Hg] [facility] Body temperature 36.735206 Kaylie 36.834037 Kaylie [facility] Respiratory rate 16 /min 16 /min [facility] Oxygen 95 % 95 % [facility] saturation in Medical Arterial blood Center by Pulse oximetry Heart rate 95 /min 95 /min [facility] Diastolic blood 70 mm[Hg] 70 mm[Hg] [facility] Center Systolic blood 118 mm[Hg] 118 mm[Hg] [facility] Body temperature 36.535752 Kaylie 36.830531 Kaylie [facility] Respiratory rate 18 /min 18 /min [facility] Oxygen 96 % 96 % [facility] saturation in Medical Arterial blood Center by Pulse oximetry Heart rate 100 /min 100 /min [facility] Diastolic blood 72 mm[Hg] 72 mm[Hg] [facility] Center Systolic blood 126 mm[Hg] 126 mm[Hg] [facility] Body temperature 36.004928 Kaylie 36.082586 Kaylie [facility] Respiratory rate 18 /min 18 /min [facility] Oxygen 97 % 97 % [facility] saturation in Medical Arterial blood Center by Pulse oximetry Heart rate 88 /min 88 /min [facility] Diastolic blood 75 mm[Hg] 75 mm[Hg] [facility] Systolic blood 145 mm[Hg] 145 mm[Hg] [facility] Body temperature 36.837117 Kaylie 36.431668 Kaylie [facility] Respiratory rate 18 /min 18 /min [facility] Oxygen 97 % 97 % [facility] saturation in Medical Arterial blood Center by Pulse oximetry Heart rate 88 /min 88 /min [facility] Diastolic blood 73 mm[Hg] 73 mm[Hg] [facility] Systolic blood 128 mm[Hg] 128 mm[Hg] [facility] Body temperature 36.463337 Kaylie 36.246154 Kaylie [facility] Respiratory rate 18 /min 18 /min [facility] Oxygen 96 % 96 % [facility] saturation in Medical Arterial blood Center by Pulse oximetry Heart rate 95 /min 95 /min [facility] Diastolic blood 89 mm[Hg] 89 mm[Hg] [facility] Systolic blood 131 mm[Hg] 131 mm[Hg] [facility] Body temperature 37.192355 Kaylie 37.503250 Kaylie [facility] Respiratory rate 18 /min 18 /min [facility] Oxygen 98 % 98 % [facility] saturation in Medical Arterial blood Center by Pulse oximetry Heart rate 89 /min 89 /min [facility] Diastolic blood 78 mm[Hg] 78 mm[Hg] [facility] Systolic blood 145 mm[Hg] 145 mm[Hg] [facility] Body temperature 36.811336 Kaylie 36.939251 Kaylie [facility] Respiratory rate 18 /min 18 /min [facility] Oxygen 97 % 97 % [facility] saturation in Medical Arterial blood Center by Pulse oximetry Heart rate 92 /min 92 /min [facility] Diastolic blood 95 mm[Hg] 95 mm[Hg] [facility] Systolic blood 150 mm[Hg] 150 mm[Hg] [facility] Body temperature 36.833649 Kaylie 36.119437 Kaylie [facility] Respiratory rate 18 /min 18 /min [facility] Oxygen 95 % 95 % [facility] saturation in Medical Arterial blood Center by Pulse oximetry Heart rate 88 /min 88 /min [facility] Diastolic blood 83 mm[Hg] 83 mm[Hg] [facility] Systolic blood 139 mm[Hg] 139 mm[Hg] [facility] Body temperature 36.067737 Kaylie 36.387067 Kaylie [facility] Respiratory rate 19 /min 19 /min [facility] Oxygen 97 % 97 % [facility] saturation in Medical Arterial blood Center by Pulse oximetry Heart rate 87 /min 87 /min [facility] Diastolic blood 95 mm[Hg] 95 mm[Hg] [facility] Center Systolic blood 137 mm[Hg] 137 mm[Hg] [facility] Body temperature 36.742900 Kaylie 36.930217 Kaylie [facility] Respiratory rate 18 /min 18 /min [facility] Oxygen 97 % 97 % [facility] saturation in Medical Arterial blood Center by Pulse oximetry Heart rate 82 /min 82 /min [facility] Diastolic blood 84 mm[Hg] 84 mm[Hg] [facility] Systolic blood 122 mm[Hg] 122 mm[Hg] [facility] Body temperature 36.058764 Kaylie 36.506876 Kaylie [facility] Respiratory rate 18 /min 18 /min [facility] Oxygen 98 % 98 % [facility] saturation in Medical Arterial blood Center by Pulse oximetry Heart rate 89 /min 89 /min [facility] Diastolic blood 74 mm[Hg] 74 mm[Hg] [facility] Systolic blood 124 mm[Hg] 124 mm[Hg] [facility] Body temperature 36.059557 Kaylie 36.726167 Kaylie [facility] Respiratory rate 19 /min 19 /min [facility] Oxygen 98 % 98 % [facility] saturation in Medical Arterial blood Center by Pulse oximetry Heart rate 85 /min 85 /min [facility] Diastolic blood 79 mm[Hg] 79 mm[Hg] [facility] Systolic blood 136 mm[Hg] 136 mm[Hg] [facility] Body temperature 37.671643 Kaylie 37.986965 Kaylie [facility] Respiratory rate 17 /min 17 /min [facility] Oxygen 97 % 97 % [facility] saturation in Medical Arterial blood Center by Pulse oximetry Heart rate 77 /min 77 /min [facility] Diastolic blood 74 mm[Hg] 74 mm[Hg] [facility] Systolic blood 109 mm[Hg] 109 mm[Hg] [facility] Body temperature 36.520608 Kaylie 36.453508 Kaylie [facility] Respiratory rate 18 /min 18 /min [facility] Oxygen 96 % 96 % [facility] saturation in Medical Arterial blood Center by Pulse oximetry Heart rate 82 /min 82 /min [facility] Diastolic blood 79 mm[Hg] 79 mm[Hg] [facility] Systolic blood 112 mm[Hg] 112 mm[Hg] [facility] Body weight 80.812239 kg 80.682446 kg [facility] Body height 172.913272 cm 172.343834 cm [facility] Body mass index 26.8 kg/m2 26.8 kg/m2 [facility] (BMI) [Ratio] Medical Center Body weight 80.168106 kg 80.686914 kg [facility] Body height 172.021489 cm 172.343936 cm [facility] Body mass index 26.8 kg/m2 26.8 kg/m2 [facility] (BMI) [Ratio] Medical Center Body temperature 36.198943 Kaylie 36.550900 Kaylie [facility] Respiratory rate 19 /min 19 /min [facility] Oxygen 100 % 100 % [place] saturation in Medical Arterial blood Center by Pulse oximetry Heart rate 85 /min 85 /min [facility] Diastolic blood 77 mm[Hg] 77 mm[Hg] [facility] Systolic blood 117 mm[Hg] 117 mm[Hg] [facility] Body temperature 37.269600 Kaylie 37.399643 Kaylie [facility] Respiratory rate 18 /min 18 /min [facility] Oxygen 95 % 95 % [facility] saturation in Medical Arterial blood Center by Pulse oximetry Heart rate 76 /min 76 /min [facility] Diastolic blood 64 mm[Hg] 64 mm[Hg] [facility] Systolic blood 125 mm[Hg] 125 mm[Hg] [facility] Body temperature 37.698630 Kaylie 37.813583 Kaylie [facility] Respiratory rate 19 /min 19 /min [facility] Oxygen 95 % 95 % [facility] saturation in Medical Arterial blood Center by Pulse oximetry Heart rate 77 /min 77 /min [facility] Diastolic blood 63 mm[Hg] 63 mm[Hg] [facility] pressure [facility] Center Systolic blood 113 mm[Hg] 113 mm[Hg] [facility] Body weight 104.266465 kg 104.543034 kg [facility] Body temperature 36.479333 Kaylie 36.948099 Kaylie [facility] Respiratory rate 17 /min 17 /min [facility] Oxygen 92 % 92 % [facility] saturation in Medical Arterial blood Center by Pulse oximetry Heart rate 84 /min 84 /min [facility] Body height 177.377947 cm 177.040994 cm [facility] Diastolic blood 83 mm[Hg] 83 mm[Hg] [facility] Center Systolic blood 136 mm[Hg] 136 mm[Hg] [facility] Body mass index 33.0 kg/m2 33.0 kg/m2 [facility] (BMI) [Ratio] Medical Center Body temperature 36.076853 Kaylie 36.666801 Kaylie [facility] Respiratory rate 19 /min 19 /min [facility] Oxygen 96 % 96 % [facility] saturation in Medical Arterial blood Center by Pulse oximetry Heart rate 89 /min 89 /min [facility] Diastolic blood 70 mm[Hg] 70 mm[Hg] [facility] pressure [facility] Center Systolic blood 137 mm[Hg] 137 mm[Hg] [facility] Body temperature 36.543325 Kaylie 36.314780 Kaylie [facility] Respiratory rate 18 /min 18 /min [facility] Oxygen 99 % 99 % [facility] saturation in Medical Arterial blood Center by Pulse oximetry Heart rate 78 /min 78 /min [facility] Diastolic blood 78 mm[Hg] 78 mm[Hg] [facility] pressure [facility] Center Systolic blood 144 mm[Hg] 144 mm[Hg] [facility] Oxygen 99 % 99 % [facility] saturation in Medical Arterial blood Center by Pulse oximetry Respiratory rate 18 /min 18 /min [facility] Oxygen 90 % 90 % [facility] saturation in Medical Arterial blood Center by Pulse oximetry Heart rate 72 /min 72 /min [facility] Diastolic blood 66 mm[Hg] 66 mm[Hg] [facility] Systolic blood 144 mm[Hg] 144 mm[Hg] [facility] Body temperature 36.049558 Kaylie 36.589123 Kaylie [facility] Respiratory rate 18 /min 18 /min [facility] Heart rate 80 /min 80 /min [facility] Diastolic blood 82 mm[Hg] 82 mm[Hg] [facility] Systolic blood 141 mm[Hg] 141 mm[Hg] [facility] Body temperature 36.546089 Kaylie 36.063455 Kaylie [facility] Oxygen 92 % 92 % [facility] saturation in Medical Arterial blood Center by Pulse oximetry Heart rate 79 /min 79 /min [facility] Diastolic blood 84 mm[Hg] 84 mm[Hg] [facility] Systolic blood 139 mm[Hg] 139 mm[Hg] [facility] Systolic blood 159 mm[Hg] 159 mm[Hg] [facility] Body mass index 33.0 kg/m2 33.0 kg/m2 [facility] (BMI) [Ratio] Medical Center Body weight 104.435838 kg 104.864465 kg [facility] Body temperature 37.791831 Kaylie 37.070932 Kaylie [facility] Respiratory rate 18 /min 18 /min [facility] Oxygen 97 % 97 % [place] saturation in Medical Arterial blood Center by Pulse oximetry Heart rate 69 /min 69 /min [facility] Body height 177.065787 cm 177.297390 cm [facility] Diastolic blood 100 mm[Hg] 100 mm[Hg] [facility] Body temperature 36.245120 Kaylie 36.523532 Kaylie [facility] Respiratory rate 18 /min 18 /min [facility] Oxygen 97 % 97 % [facility] saturation in Medical Arterial blood Center by Pulse oximetry Heart rate 88 /min 88 /min [facility] Diastolic blood 97 mm[Hg] 97 mm[Hg] [facility] Systolic blood 152 mm[Hg] 152 mm[Hg] [facility] Body temperature 37.945563 Kaylie 37.317038 Kaylie [facility] Respiratory rate 18 /min 18 /min [facility] Oxygen 97 % 97 % [facility] saturation in Medical Arterial blood Center by Pulse oximetry Heart rate 87 /min 87 /min [facility] Diastolic blood 87 mm[Hg] 87 mm[Hg] [facility] pressure [facility] Center Systolic blood 145 mm[Hg] 145 mm[Hg] [facility] Body temperature 36.188129 Kaylie 36.687080 Kaylie [facility] Respiratory rate 17 /min 17 /min [facility] Oxygen 94 % 94 % [facility] saturation in Medical Arterial blood Center by Pulse oximetry Heart rate 98 /min 98 /min [facility] Diastolic blood 68 mm[Hg] 68 mm[Hg] [facility] Systolic blood 144 mm[Hg] 144 mm[Hg] [facility] Body temperature 36.690320 Kaylie 36.460466 Kaylie [facility] Respiratory rate 18 /min 18 /min [facility] Oxygen 97 % 97 % [facility] saturation in Medical Arterial blood Center by Pulse oximetry Heart rate 88 /min 88 /min [facility] Diastolic blood 72 mm[Hg] 72 mm[Hg] [facility] Systolic blood 144 mm[Hg] 144 mm[Hg] [facility] Body temperature 36.783482 Kaylie 36.939153 Kaylie [facility] Respiratory rate 19 /min 19 /min [facility] Heart rate 90 /min 90 /min [facility] Diastolic blood 74 mm[Hg] 74 mm[Hg] [facility] Systolic blood 121 mm[Hg] 121 mm[Hg] [facility] Body temperature 37.835983 Kaylie 37.831648 Kaylie [facility] Respiratory rate 17 /min 17 /min [facility] Oxygen 89 % 89 % [facility] saturation in Medical Arterial blood Center by Pulse oximetry Heart rate 110 /min 110 /min [facility] Diastolic blood 76 mm[Hg] 76 mm[Hg] [facility] pressure [facility] Center Systolic blood 115 mm[Hg] 115 mm[Hg] [facility] Body temperature 36.073719 Kaylie 36.866019 Kaylie [facility] Respiratory rate 18 /min 18 /min [facility] Oxygen 100 % 100 % [facility] saturation in Medical Arterial blood Center by Pulse oximetry Heart rate 80 /min 80 /min [facility] Diastolic blood 78 mm[Hg] 78 mm[Hg] [facility] pressure Medical Center Systolic blood 128 mm[Hg] 128 mm[Hg] [facility] Body temperature 36.842357 Kaylie 36.034283 Kaylie [facility] Respiratory rate 19 /min 19 /min [facility] Oxygen 96 % 96 % [facility] saturation in Medical Arterial blood Center by Pulse oximetry Heart rate 69 /min 69 /min [facility] Diastolic blood 78 mm[Hg] 78 mm[Hg] [facility] pressure Medical Center Systolic blood 128 mm[Hg] 128 mm[Hg] [facility] Body weight 95.686920 kg 95.140719 kg [facility] Measured [facility] Body temperature 36.570918 Kaylie 36.102379 Kaylie [facility] Respiratory rate 18 /min 18 /min [facility] Oxygen 96 % 96 % [facility] saturation in Medical Arterial blood Center by Pulse oximetry Heart rate 95 /min 95 /min [facility] Body height 182.682409 cm 182.255967 cm [facility] Diastolic blood 80 mm[Hg] 80 mm[Hg] [facility] pressure Medical Center Systolic blood 130 mm[Hg] 130 mm[Hg] [facility] Body mass index 28.4 kg/m2 28.4 kg/m2 [facility] (BMI) [Ratio] Medical Center Body temperature 36.130562 Kaylie 36.592981 Kaylie [facility] Respiratory rate 16 /min 16 /min [facility] Oxygen 97 % 97 % [place] saturation in Medical Arterial blood Center by Pulse oximetry Heart rate 74 /min 74 /min [facility] Diastolic blood 77 mm[Hg] 77 mm[Hg] [facility] pressure Medical Center Systolic blood 131 mm[Hg] 131 mm[Hg] [facility] Body temperature 36.379007 Kaylie 36.514518 Kaylie [facility] Respiratory rate 18 /min 18 /min [facility] Oxygen 99 % 99 % [place] saturation in Medical Arterial blood Center by Pulse oximetry Heart rate 82 /min 82 /min [facility] Diastolic blood 82 mm[Hg] 82 mm[Hg] [facility] pressure Medical Center Systolic blood 135 mm[Hg] 135 mm[Hg] [facility] Body weight 120.188688 kg 120.607507 kg [facility] Measured [facility] Center Body temperature 36.488815 Kaylie 36.798240 Kaylie [facility] Respiratory rate 16 /min 16 /min [facility] Oxygen 96 % 96 % [facility] [place] saturation in Medical Arterial blood Center by Pulse oximetry Heart rate 67 /min 67 /min [facility] Diastolic blood 67 mm[Hg] 67 mm[Hg] [facility] pressure Medical Center Systolic blood 115 mm[Hg] 115 mm[Hg] [facility] Oxygen 90 % 90 % [place] saturation in Medical Arterial blood Center by Pulse oximetry Heart rate 109 /min 109 /min [facility] Diastolic blood 62 mm[Hg] 62 mm[Hg] [facility] Systolic blood 103 mm[Hg] 103 mm[Hg] [facility] Body temperature 37.561384 Kaylie 37.112904 Kaylie [facility] Respiratory rate 18 /min 18 /min [facility] Body weight 113.872729 kg 113.423920 kg [facility] Measured [facility] Body temperature 36.080747 Kaylie 36.736937 Kaylie [facility] Respiratory rate 18 /min 18 /min [facility] Oxygen 96 % 96 % [place] saturation in Medical Arterial blood Center by Pulse oximetry Heart rate 82 /min 82 /min [facility] Body height 177.881722 cm 177.242882 cm [facility] Diastolic blood 82 mm[Hg] 82 mm[Hg] [facility] pressure Medical Center Systolic blood 136 mm[Hg] 136 mm[Hg] [facility] Body mass index 35.8 kg/m2 35.8 kg/m2 [facility] (BMI) [Ratio] Medical Center Body temperature 37.969850 Kaylie 37.569827 Kaylie [facility] Respiratory rate 18 /min 18 /min [facility] Oxygen 96 % 96 % [facility] [place] saturation in Medical Arterial blood Center by Pulse oximetry Heart rate 88 /min 88 /min [facility] Diastolic blood 86 mm[Hg] 86 mm[Hg] [facility] Systolic blood 118 mm[Hg] 118 mm[Hg] [facility] Body temperature 36.127258 Kaylie 36.656777 Kaylie [facility] Respiratory rate 18 /min 18 /min [facility] Oxygen 98 % 98 % [facility] [place] saturation in Medical Arterial blood Center by Pulse oximetry Heart rate 79 /min 79 /min [facility] Diastolic blood 78 mm[Hg] 78 mm[Hg] [facility] Systolic blood 121 mm[Hg] 121 mm[Hg] [facility] Body temperature 36.987945 Kaylie 36.250234 Kaylie [facility] Respiratory rate 19 /min 19 /min [facility] Oxygen 96 % 96 % [facility] [place] saturation in Medical Arterial blood Center by Pulse oximetry Heart rate 81 /min 81 /min [facility] Diastolic blood 74 mm[Hg] 74 mm[Hg] [facility] Systolic blood 118 mm[Hg] 118 mm[Hg] [facility] Body temperature 37.808801 Kaylie 37.209153 Kaylie [facility] Respiratory rate 18 /min 18 /min [facility] Oxygen 96 % 96 % [facility] [place] saturation in Medical Arterial blood Center by Pulse oximetry Heart rate 96 /min 96 /min [facility] Diastolic blood 59 mm[Hg] 59 mm[Hg] [facility] Systolic blood 94 mm[Hg] 94 mm[Hg] [facility] Body temperature 37.438735 Kaylie 37.675999 Kaylie [facility] Respiratory rate 19 /min 19 /min [facility] Oxygen 95 % 95 % [place] saturation in Medical Arterial blood Center by Pulse oximetry Heart rate 88 /min 88 /min [facility] Diastolic blood 53 mm[Hg] 53 mm[Hg] [facility] Systolic blood 93 mm[Hg] 93 mm[Hg] [facility] Body weight 74.266205 kg 74.092163 kg [facility] Body temperature 36.812929 Kaylie 36.956331 Kaylie [facility] Respiratory rate 18 /min 18 /min [facility] Oxygen 100 % 100 % [facility] [place] saturation in Medical Arterial blood Center by Pulse oximetry Heart rate 94 /min 94 /min [facility] Body height 182.922273 cm 182.307836 cm [facility] Diastolic blood 59 mm[Hg] 59 mm[Hg] [facility] pressure Medical Center Systolic blood 100 mm[Hg] 100 mm[Hg] [facility] Body mass index 22.3 kg/m2 22.3 kg/m2 [facility] (BMI) [Ratio] Medical Center Body temperature 37.301959 Kaylie 37.210875 Kaylie [facility] Respiratory rate 18 /min 18 /min [facility] Oxygen 95 % 95 % [place] saturation in Medical Arterial blood Center by Pulse oximetry Heart rate 88 /min 88 /min [facility] Diastolic blood 78 mm[Hg] 78 mm[Hg] [facility] Systolic blood 132 mm[Hg] 132 mm[Hg] [facility] Body temperature 37.774833 Kaylie 37.974943 Kaylie [facility] Respiratory rate 17 /min 17 /min [facility] Oxygen 94 % 94 % [facility] [place] saturation in Medical Arterial blood Center by Pulse oximetry Heart rate 80 /min 80 /min [facility] Diastolic blood 84 mm[Hg] 84 mm[Hg] [facility] Systolic blood 134 mm[Hg] 134 mm[Hg] [facility] Body temperature 37.212288 Kaylie 37.483728 Kaylie [facility] Respiratory rate 19 /min 19 /min [facility] Oxygen 95 % 95 % [facility] [place] saturation in Medical Arterial blood Center by Pulse oximetry Heart rate 87 /min 87 /min [facility] Diastolic blood 75 mm[Hg] 75 mm[Hg] [facility] Systolic blood 137 mm[Hg] 137 mm[Hg] [facility] Body temperature 36.391363 Kaylie 36.802308 Kaylie [facility] Respiratory rate 18 /min 18 /min [facility] Oxygen 93 % 93 % [facility] [place] saturation in Medical Arterial blood Center by Pulse oximetry Heart rate 81 /min 81 /min [facility] Diastolic blood 77 mm[Hg] 77 mm[Hg] [facility] pressure Medical Center Systolic blood 137 mm[Hg] 137 mm[Hg] [facility] Body temperature 37.849033 Kaylie 37.382558 Kaylie [facility] Respiratory rate 19 /min 19 /min [facility] Oxygen 96 % 96 % [place] saturation in Medical Arterial blood Center by Pulse oximetry Heart rate 96 /min 96 /min [facility] Diastolic blood 75 mm[Hg] 75 mm[Hg] [facility] pressure Medical Center Systolic blood 129 mm[Hg] 129 mm[Hg] [facility] Body temperature 37.114720 Kaylie 37.263905 Kaylie [facility] Respiratory rate 18 /min 18 /min [facility] Oxygen 97 % 97 % [facility] [place] saturation in Medical Arterial blood Center by Pulse oximetry Heart rate 99 /min 99 /min [facility] Diastolic blood 72 mm[Hg] 72 mm[Hg] [facility] Systolic blood 131 mm[Hg] 131 mm[Hg] [facility] Body temperature 37.350688 Kaylie 37.679561 Kaylie [facility] Respiratory rate 19 /min 19 /min [facility] Oxygen 98 % 98 % [facility] [place] saturation in Medical Arterial blood Center by Pulse oximetry Heart rate 84 /min 84 /min [facility] Diastolic blood 85 mm[Hg] 85 mm[Hg] [facility] Systolic blood 131 mm[Hg] 131 mm[Hg] [facility] Body temperature 37.529301 Kyalie 37.202493 Kaylie [facility] Respiratory rate 18 /min 18 /min [facility] Oxygen 98 % 98 % [facility] [place] saturation in Medical Arterial blood Center by Pulse oximetry Heart rate 85 /min 85 /min [facility] Diastolic blood 88 mm[Hg] 88 mm[Hg] [facility] Systolic blood 126 mm[Hg] 126 mm[Hg] [facility] Body temperature 37.011428 Kaylie 37.802240 Kaylie [facility] Respiratory rate 18 /min 18 /min [facility] Oxygen 98 % 98 % [facility] [place] saturation in Medical Arterial blood Center by Pulse oximetry Heart rate 90 /min 90 /min [facility] Diastolic blood 85 mm[Hg] 85 mm[Hg] [facility] Systolic blood 139 mm[Hg] 139 mm[Hg] [facility] Body weight 85.055921 kg 85.102752 kg [facility] Measured [facility] Body height 177.170758 cm 177.049974 cm [facility] Body mass index 26.8 kg/m2 26.8 kg/m2 [facility] (BMI) [Ratio] Medical Center Body temperature 36.551604 Kaylie 36.034842 Kaylie [facility] Respiratory rate 16 /min 16 /min [facility] Oxygen 96 % 96 % [facility] [place] saturation in Medical Arterial blood Center by Pulse oximetry Heart rate 71 /min 71 /min [facility] Diastolic blood 66 mm[Hg] 66 mm[Hg] [facility] Systolic blood 115 mm[Hg] 115 mm[Hg] [facility] Body temperature 36.497200 Kaylie 36.435104 Kaylie [facility] Respiratory rate 16 /min 16 /min [facility] Oxygen 96 % 96 % [facility] [place] saturation in Medical Arterial blood Center by Pulse oximetry Heart rate 75 /min 75 /min [facility] Diastolic blood 74 mm[Hg] 74 mm[Hg] [facility] Systolic blood 121 mm[Hg] 121 mm[Hg] [facility] Body temperature 36.332952 Kaylie 36.170515 Kaylie [facility] Respiratory rate 17 /min 17 /min [facility] Oxygen 98 % 98 % [facility] [place] saturation in Medical Arterial blood Center by Pulse oximetry Heart rate 84 /min 84 /min [facility] Diastolic blood 70 mm[Hg] 70 mm[Hg] [facility] Systolic blood 118 mm[Hg] 118 mm[Hg] [facility] Body temperature 37.540954 Kaylie 37.078676 Kaylie [facility] Respiratory rate 18 /min 18 /min [facility] Oxygen 97 % 97 % [facility] [place] saturation in Medical Arterial blood Center by Pulse oximetry Heart rate 86 /min 86 /min [facility] Diastolic blood 87 mm[Hg] 87 mm[Hg] [facility] pressure Medical Center Systolic blood 136 mm[Hg] 136 mm[Hg] [facility] Body temperature 36.005626 Kaylie 36.748916 Kaylie [facility] Respiratory rate 18 /min 18 /min [facility] Heart rate 89 /min 89 /min [facility] Diastolic blood 90 mm[Hg] 90 mm[Hg] [facility] Systolic blood 134 mm[Hg] 134 mm[Hg] [facility] Body temperature 36.461471 Kaylie 36.720763 Kaylie [facility] Respiratory rate 18 /min 18 /min [facility] Heart rate 94 /min 94 /min [facility] Diastolic blood 83 mm[Hg] 83 mm[Hg] [facility] Systolic blood 136 mm[Hg] 136 mm[Hg] [facility] Body temperature 37.924014 Kaylie 37.896618 Kaylie [facility] Respiratory rate 20 /min 20 /min [facility] Heart rate 87 /min 87 /min [facility] Diastolic blood 73 mm[Hg] 73 mm[Hg] [facility] Systolic blood 132 mm[Hg] 132 mm[Hg] [facility] Body temperature 36.380476 Kaylie 36.921914 Kaylie [facility] Respiratory rate 20 /min 20 /min [facility] Heart rate 82 /min 82 /min [facility] Diastolic blood 81 mm[Hg] 81 mm[Hg] [facility] Systolic blood 123 mm[Hg] 123 mm[Hg] [facility] Oxygen 94 % 94 % [facility] saturation in Medical Arterial blood Center by Pulse oximetry Body temperature 36.568805 Kaylie 36.160679 Kaylie [facility] Respiratory rate 17 /min 17 /min [facility] Heart rate 91 /min 91 /min [facility] Diastolic blood 79 mm[Hg] 79 mm[Hg] [facility] Systolic blood 143 mm[Hg] 143 mm[Hg] [facility] Body weight 104.961911 kg 104.770024 kg [facility] Body temperature 36.642930 Kaylie 36.570708 Kaylie [facility] Respiratory rate 17 /min 17 /min [facility] Oxygen 98 % 98 % [facility] saturation in Medical Arterial blood Center by Pulse oximetry Heart rate 94 /min 94 /min [facility] Diastolic blood 74 mm[Hg] 74 mm[Hg] [facility] pressure [facility] Systolic blood 106 mm[Hg] 106 mm[Hg] [facility] Body temperature 36.076109 Kaylie 36.694395 Kaylie [facility] Respiratory rate 17 /min 17 /min [facility] Oxygen 96 % 96 % [facility] saturation in Medical Arterial blood Center by Pulse oximetry Heart rate 98 /min 98 /min [facility] Diastolic blood 76 mm[Hg] 76 mm[Hg] [facility] Systolic blood 134 mm[Hg] 134 mm[Hg] [facility] ID Date Data Source [id number] 02/27/2020 10:28:08 PM EDT [facility] Name Value Range Interpretation Code Description Data Source(s) Body weight Measured 233 lb 233 lb [facility] Patient Treatment Plan of Care Planned Activity Planned Date Details Description Data Source (s) 0.9% NaCl IV 08/16/2019 05:17:42 PM [facility] 0.9% NaCl IV 08/16/2019 05:17:42 PM [facility]
--- NOTE | 2020-04-01 23:06 | PDOC ---
Attending Attestation - Resident Resident Name: Ashish Pimentelison - ED Attending Attestation I have performed the following: I have examined & evaluated the patient, The case was reviewed & discussed with the resident, I agree w/resident's findings & plan - HPI HPI: 04/02/20 00:34 PT RETURNS FOR SENIOR LIVING FROM THE COLD. HE HAS ALCOHOL ABUSE, CAD, CHRONIC PAINS FROM MULTIPLE OLD FRACTURES, ETC. PT LOOKS BETTER THAN HIS USUAL TODAY AND HE HAS NO COMPLAINTS. - Physicial Exam PE: 04/07/20 03:46 Agree with resident - Medical Decision Making 04/07/20 03:46 Pt looks good he is [place] for d/c home Discharge - Discharge Information Problems reviewed: Yes Clinical Impression/Diagnosis: Back pain Qualifiers: Back pain location: low back pain Chronicity: chronic Back pain laterality: bilateral Sciatica presence: unspecified whether sciatica present Qualified Code(s): M54.5 - Low back pain Condition: Good Disposition: HOME - Follow up/Referral - Patient Discharge Instructions Patient Printed Discharge Instructions: Low Back Pain Additional Instructions: You came to the ED for back pain. This is most likely from your chronic back pain. At the ED we gave you robaxin. You explained throughout the night that the pain was better. IF you have any of the following please return: - fevers or chills - shortness of breath or chest pain - unable to control bowel movements or urination. For any emergent symptoms please call for medical help right away. - Post Discharge Activity
[2020-04-01] MEDS ORDERED: METHOCARBAMOL 500 MG TABLET PO ONE (23:35)
--- NOTE | 2020-04-01 23:35 | PDOC ---
History of Present Illness - General Chief Complaint: Chronic pain Stated Complaint: BACK PAIN Time Seen by Provider: 04/01/20 22:29 - History of Present Illness Initial Comments: 04/02/20 03:41 65 yo male with pmh 65 y/o M with hx of COVID-19, mesothelioma with long history of EtOH abuse, chronic back pain, and multiple ER visits and admission secondary to EtOH abuse is presenting with back pain that pt has in the past. PT explains pain is exactly the same as prior chronic back pain. Pt also does have left sided knee pain. Pt explains he does have numbness radiating down both legs which is his normal according to pt. Pt denies loss of control of bowel or urination. Pt denies saddle anesthesia. Pt explains pain is better with robaxin. Pt does also have inc edema on bilateral lower ext that has been going on for the past few days but has not come in for that. Pt explains he does get that sometimes and usually goes down on its own. PT denies chest pain, fevers chills, n/v/d/c, sob, abdominal pain, dysuria, or urinary frequency. Pt last drink was five days ago according to pt. Pt is trying to detox. PMH: COVID, mesothelioma, EtOH abuse, chronic back pain Allergies: fish containing products PSH: denies Social: chronic alcoholic Past History - Medical History Allergies/Adverse Reactions: Allergies Allergy/AdvReac Type Severity Reaction Status Date / Time Fish Containing Products Allergy Mild Swelling Verified 04/01/20 20:17 No Known Drug Allergies Allergy Verified 04/01/20 20:17 Home Medications: Ambulatory Orders NK [No Known Home Medication] 03/05/20 Anemia: No Asthma: No Cancer: Yes (mesothelioma lung cancer) Cardiac Disorders: No CVA: No COPD: No CHF: No DVT: No Dementia: No Diabetes: No Dialysis: No GI Disorders: No Disorders: No HTN: Yes (non compliant with meds.) Hypercholesterolemia: Yes Kidney Stones: No Liver Disease: Yes (ETOH abuse) Psychiatric Problems: Yes (ETOH abuse) Seizures: No Thyroid Disease: No Lung CA: Yes (Mesothelioma) - Surgical History Abdominal Surgery: No Appendectomy: No Cardiac Surgery: No Cholecystectomy: No Lung Surgery: No Neurologic Surgery: No Orthopedic Surgery: No - Reproductive History Testicular Surgery: No - Immunization History Td Vaccination: Yes TDAP Vaccination: Yes Immunization Up to Date: Yes - Psycho-Social/Smoking History Smoking Status: No Smoking History: Former smoker Have you smoked in the past 12 months: No Number of Cigarettes Smoked Daily: 0 If you are a former smoker, when did you quit?: 0 Cigars Per Day: 0 Information on smoking cessation initiated: No 'Breaking Loose' booklet given: 09/22/17 - Substance Abuse Hx (Audit-C & DAST Scrn) How often the patient has a drink containing alcohol: 4 0r more times/wk Number of drinks the patient has on a typical day: 10 or more How often the patient has six or more drinks on one occasion: Daily or almost daily Score: In Men: 4 or > Positive; In Women: 3 or > Positive: 12 Screen Result (Pos requires Nsg. Audit-10AR): Positive In the last yr the pt used illegal drug/Rx for NonMed reason: No Score: Yes response is considered Positive: 0 Screen Result (Positive result requires Nsg. DAST-10): Negative Review of Systems - Review of Systems Comments:: 04/02/20 04:13 GENERAL/CONSTITUTIONAL: No fever or chills. No weakness. HEAD, EYES, EARS, NOSE AND THROAT: No change in vision. No ear pain or discharge. No sore throat. CARDIOVASCULAR: No chest pain or shortness of breath RESPIRATORY: No cough, wheezing, or hemoptysis. GASTROINTESTINAL: No nausea, vomiting, diarrhea or constipation. GENITOURINARY: No dysuria, frequency, or change in urination. MUSCULOSKELETAL: Back pain SKIN: No rash NEUROLOGIC: No headache, vertigo, loss of consciousness, or change in strength/sensation. ENDOCRINE: No increased thirst. No abnormal weight change HEMATOLOGIC/LYMPHATIC: No anemia, easy bleeding, or history of blood clots. ALLERGIC/IMMUNOLOGIC: No hives or skin allergy. *Physical Exam - Vital Signs Last Vital Signs Temp Pulse Resp BP Pulse Ox 97.6 F 82 20 92/46 L 98 04/01/20 20:09 04/01/20 20:09 04/01/20 20:09 04/01/20 20:09 04/01/20 20:09 - Physical Exam 04/02/20 04:14 GENERAL: Awake, alert, and fully oriented, in no acute distress HEAD: No signs of trauma, normocephalic, atraumatic EYES: PERRLA, EOMI, sclera anicteric, conjunctiva clear ENT: Auricles normal inspection, hearing grossly normal, nares patent, oropharynx clear without exudates. Moist mucosa NECK: Normal ROM, supple, no lymphadenopathy, JVD, or masses LUNGS: No distress, speaks full sentences, clear to auscultation bilaterally HEART: Regular rate and rhythm, normal S1 and S2, no murmurs, rubs or gallops, peripheral pulses normal and equal bilaterally. ABDOMEN: Soft, nontender EXTREMITIES : bilatral pitting edema to calf. RIght lumbar paraspinal muscle tenderness. NEUROLOGICAL: Cranial nerves II through XII grossly intact. Normal speech, no focal sensorimotor deficits SKIN: Warm, Dry, normal turgor, no rashes or lesions noted Heart Score/ECG Review - ECG Impressions Comment:: 04/02/20 06:18 Normal sinus rhythm at 85 bpm Left axis deviated IL interval 174 QRS 98 QT/QTc 410/487 T wave flattening in III Medical Decision Making - Medical Decision Making 04/02/20 04:15 65 yo male with pmh above presents to ED for chronic Lumbar pain asking for robaxin. Pt has mild tenderness on palpation of lower back. Pt has low BP according to pt he has very low bp when he is trying to detox from alcohol. Pt given robaxin and feels slightly better. Physical exam unremarkable. Pt able to walk to bathroom on his own. Will dc home Discharge - Discharge Information Problems reviewed: Yes Clinical Impression/Diagnosis: Back pain Qualifiers: Back pain location: low back pain Chronicity: chronic Back pain laterality: bilateral Sciatica presence: unspecified whether sciatica present Qualified Code(s): M54.5 - Low back pain Condition: Good Disposition: HOME - Follow up/Referral - Patient Discharge Instructions Patient Printed Discharge Instructions: Low Back Pain Additional Instructions: You came to the ED for back pain. This is most likely from your chronic back pain. At the ED we gave you robaxin. You explained throughout the night that the pain was better. IF you have any of the following please return: - fevers or chills - shortness of breath or chest pain - unable to control bowel movements or urination. For any emergent symptoms please call for medical help right away. - Post Discharge Activity
[2020-04-01] MEDS ORDERED: METHOCARBAMOL 500 MG TABLET ONE (23:39)
[2020-04-02 06:10] VITALS: BP 100/60; PULSE 78
--- NOTE | 2020-04-02 16:09 | EKG ---
Test Reason : Blood Pressure : / mmHG Vent. Rate : 085 BPM Atrial Rate : 085 BPM P-R Int : 174 ms QRS Dur : 098 ms QT Int : 410 ms P-R-T Axes : 020 -26 020 degrees QTc Int : 487 ms NORMAL SINUS RHYTHM PROLONGED QT ABNORMAL ECG WHEN COMPARED WITH ECG OF 31-MAR-2020 07:31, NO SIGNIFICANT CHANGE WAS FOUND Confirmed by KY OVIEDO MD ([id number]) on 04/02/2020 4:09:12 PM Referred By: Confirmed By:KY OVIEDO MD
--- NOTE | 2020-04-02 16:11 | EKG ---
Test Reason : Blood Pressure : / mmHG Vent. Rate : 096 BPM Atrial Rate : 096 BPM P-R Int : 182 ms QRS Dur : 094 ms QT Int : 376 ms P-R-T Axes : 043 -23 057 degrees QTc Int : 475 ms NORMAL SINUS RHYTHM NORMAL ECG WHEN COMPARED WITH ECG OF 28-MAR-2020 23:32, NO SIGNIFICANT CHANGE WAS FOUND Confirmed by KY OVIEDO MD ([id number]) on 04/02/2020 4:11:21 PM Referred By: Confirmed By:KY OVIEDO MD
== END 2020-04-02 06:22 | disposition home or self-care (01) ==
LOC: JER 20:06
DX: M54.5 Low back pain (principal)
CPT/HCPCS: 93005; 93010; 99284-25

== ENCOUNTER 2020-04-04 18:13 | Emergency (ER) | payer OTHER ==
--- NOTE | 2020-04-04 18:18 | PDOC ---
Rapid Medical Evaluation Time Seen by Provider: 04/04/20 18:16 Medical Evaluation: Allergies Allergy/AdvReac Type Severity Reaction Status Date / Time Fish Containing Products Allergy Mild Swelling Verified 04/01/20 20:17 No Known Drug Allergies Allergy Verified 04/01/20 20:17 04/04/20 18:17 I have performed a brief in person evaluation of this patient. CC: ETOH intox, back pain PE: c/w baseline Orders: nothing Patient will proceed to ED for further evaluation. Discharge Disposition - Diagnosis Alcohol abuse, Lumbar back pain - Referrals - Patient Instructions - Post Discharge Activity
[2020-04-04 18:37] VITALS: TEMP 98.6; BMI 35.2
--- OUTSIDE RECORDS SUMMARY | 2020-04-04 18:53 | XMS ---
:1955 Author Organization [facility] Care Team Providers Name Role Phone VAINCA Sage Unavailable Unavailable [facility] Unavailable Unavailable ED STAFF PHYSICIAN Unavailable Unavailable LANOIX, YAN Unavailable Unavailable WYATT Unavailable Unavailable ED STAFF PHYSICIAN Unavailable Unavailable ED STAFF PHYSICIAN Unavailable Unavailable FAVIO Unavailable Unavailable ED STAFF PHYSICIAN Unavailable Unavailable ED STAFF PHYSICIAN Unavailable Unavailable LENO JOSE S Unavailable Unavailable ED STAFF PHYSICIAN Unavailable Unavailable ED STAFF PHYSICIAN Unavailable Unavailable KELLI TUYET Unavailable Unavailable FAHNRICH LITZY C Unavailable Unavailable CLINE ALESSANDRO P Unavailable Unavailable GRAVES ADITHYA W Unavailable Unavailable [facility] Unavailable Unavailable ED STAFF PHYSICIAN Unavailable Unavailable CLEMENTE RAMOS Unavailable Unavailable ADELA Ruiz Unavailable Unavailable MD [...] of the [facility] Public Health law. If you continue you may haveaccess to information: Regarding HIV / AIDS; Provided by facilities licensed or operated by the [facility] Office of Mental Health; or Provided by the [facility] Office for People With Developmental Disabilities. If such information is present, then the following [facility] mandated warning applies: This information has been [...] law may result in a fine or long term sentence or both. A general authorization for the release of medical or other information is NOT sufficient authorization for further disclosure. Encounters Encounter Providers Location Date Indications Data Source(s ) Emergency Attender: SON Sage 04/03/2020 [facility] ALESSANDRO PAttender: 09:14:00 [facility] ED STAFF EDT - PHYSICIANAdmitter: 04/04/2020 [facility] FRANCOIS 07:43:00 AM PReferrer: EDT ZUNASSIGNED Patient discharged. Emergency Attender: SON Sage 04/02/2020 07:25:00 PM [facility]: STAFF ED STAFF EDT - 04/03/2020 [facility] PHYSICIANAdmitter: SON 06:45:00 AM EDT ALESSANDRO PReferrer: ZUNASSIGNED Patient discharged. Emergency Attender: ARIC Sage 04/01/2020 03:08:00 PM [facility]: STAFF ED STAFF EDT - 04/01/2020 [facility] PHYSICIANAdmitter: ARIC 06:10:00 PM EDT ADITHYA Reeveser: ZUNASSIGNED Patient discharged. Emergency Attender: SON Sage 03/31/2020 06:51:00 PM [facility] PAttenthaddeus: ARIC ADITHYA EDT - 03/31/2020 [facility] ST[facility]FF ED STAFF 10:14:00 PM EDT PHYSICIANAdmitter: SON FRANCOIS PReferrer: ZUNASSIGNED Patient discharged. Emergency Attender: JOSE Sage 03/29/2020 05:00 :00 PM [facility] STAFF EDT - 03/30/2020 [facility] PHYSICIANAdmitter: JOSE 11:11:00 AM EDT MISTY GARCIA SReferrer: ZUNASSIGNED Patient discharged. Emergency Attender: ARIC Sage 03/26/2020 07:51:00 PM [facility] ED STAFF EDT - 03/26/2020 [facility] PHYSICIANAdmitter: ARIC 11:23:00 PM EDT ADITHYA Stinsonerrer: ZUNASSIGNED Patient discharged. Emergency Attender: SON Sage 03/24/2020 05:26:00 PM [facility]: STAFF ED STAFF EDT - 03/24/2020 [facility] PHYSICIANAdmitter: SON 09:14:00 PM EDT ALESSANDRO PReferrer: STAFF ED STAFF PHYSICIAN Patient discharged. Emergency Attender: SON Sage 03/23/2020 09:54:00 PM [facility]: STAFF ED STAFF EDT - 03/24/2020 [facility] PHYSICIANAdmitter: SON 05:54:00 AM EDT ALESSANDRO PReferrer: ZUNASSIGNED Patient discharged. Emergency Attender: JOSE Sage 03/23/2020 05:47 :[address] [facility]: STAFF ED STAFF EDT - 03/23/2020 [facility] PHYSICIANAdmitter: JOSE 09:35:00 PM EDT MISTY GARCIA SReferrer: ZUNASSIGNED Patient discharged. Emergency Attender: SON Sage 03/22/2020 06:46:00 PM [facility]: STAFF ED STAFF EDT - 03/23/2020 [facility] PHYSICIANAdmitter: SON 06:04:00 AM EDT ALESSANDRO PReferrer: ZUNASSIGNED Patient discharged. Outpatient Attender: [id number] [facility] 03/19/2020 06:09:28 PM I ([facility] EDT Collaborative) Patient admitted. Inpatient Attender: ZACK DIXON H-HAL6 03/16/2020 05:57:0 0 [facility]: STAFF ED STAFF PM EDT - 03/20/2020 [facility] PHYSICIANAdmitter: ZACK 01:00:00 PM EDT VIANCA DIXON HReferrer: ZACK DIXON H Patient discharged. Emergency Attender: SON Sage 03/13/2020 10:53:00 PM [facility]: STAFF ED STAFF EDT - 03/14/2020 [facility] PHYSICIANAdmitter: SON 09:59:00 AM EDT ALESSANDRO PReferrer: ZUNASSIGNED Patient discharged. Emergency Attender: SON Sage 03/12/2020 11:27:00 PM [facility]: STAFF ED STAFF EDT - 03/13/2020 [facility] PHYSICIANAdmitter: SON 09:26:00 AM EDT ALESSANDRO PReferrer: ZUNASSIGNED Patient discharged. Emergency Attender: SON Sage 03/11/2020 07:35:00 PM [facility]: STAFF ED STAFF EDT - 03/12/2020 [facility] PHYSICIANAdmitter: SON 06:22:00 AM EDT ALESSANDRO PReferrer: STAFF ED STAFF PHYSICIAN Patient discharged. Emergency Attender: ARIC Sage 03/07/2020 12:09:00 AM [facility]: STAFF ED STAFF EDT - 03/07/2020 [facility] PHYSICIANAdmitter: ARIC 05:31:00 AM EDT ADITHYA Stinsonerrer: ZUNASSIGNED Patient discharged. Emergency Attender: LITZY PALOMARES H-ER 03/05/2020 07:16:00 [facility] CAVAZOSIAN CAttender: STAFF ED PM EDT - 03/05/2020 [facility] STAFF PHYSICIANAdmitter: 08:52:00 PM EDT LITZY MCGHEE CReferrer: ZUNASSIGNED Patient discharged. Emergency Attender: ADELA Sage 03/03/2020 07:52:00 PM [facility] Weirthaddeus: STAFF ED STAFF EDT - 03/04/[facility] PHYSICIANAdmitter: ADELA 06:50:00 AM EDT MALLORY LReferrer: STAFF ED STAFF PHYSICIAN Patient discharged. Emergency Attender: JOSE Sage 03/01/2020 12:31 :00 PM [facility] Daly: STAFF ED STAFF EDT - 03/01/2020 [facility] PHYSICIANAdmitter: JOSE 11:42:00 PM EDT MISTY Rodriguezferrer: ZUNASSIGNED Patient discharged. Emergency Attender: ED STAFF H 02/29/2020 12:29:00 PM [facility] PHYSICIANAttender: STAFF ED EDT - 02/29/2020 [facility] STAFF PHYSICIANAdmitter: ED 06:19:00 PM EDT STAFF PHYSICIANReferrer: ZUNASSIGNED Patient discharged. Emergency Attender: LITZY MCGHEE 02/28/2020 08:42 :00 PM [facility] ST[facility]FF ED STAFF EDT - 02/29/2020 [facility] PHYSICIANAdmitter: LITZY 05:27:00 AM EDT JELANI MCGHEE CReferrer: ZUNASSIGNED Patient discharged. Emergency Attender: JOSE GARCIA 02/28/2020 11:14 :00 AM [facility] STAFF ED STAFF EDT - 02/28/2020 [facility] PHYSICIANAdmitter: JOSE 07:32:00 PM EDT MISTY Mastersrer: ZUNASSIGNED Patient discharged. Emergency Attender: ADELA Sage 02/27/2020 08:25:00 PM [facility]: STAFF ED STAFF EDT - 02/28/2020 [facility] PHYSICIANAdmitter: ADELA 07:04:00 AM EDT MALLORY LReferrer: ZUNASSIGNED Patient discharged. Inpatient Attender: LEWIS DUVAL-Nayeli 02/16/2020 01:37:00 [facility] AYANA RESENDEZ PM EDT - [address] [place] [address] 10:27:00 PM EDT Patient discharged. Outpatient STPritesh 02/16/2020 10:53:00 AM EDT - [address] [place] [address] 01:59:00 PM EDT Patient discharged. Emergency Attender: ADELA Sage 02/09/2020 09:43:00 PM [facility]: STAFF ED STAFF EDT - 02/10/2020 [facility] PHYSICIANAdmitter: ADELA 06:48:00 AM EDT MALLORY LReferrer: ZUNASSIGNED Patient discharged. Emergency Attender: STAFF ED STAFF H 02/09/2020 02:45:00 AM [facility] PHYSICIAN EDT - 02/09/2020 06:55:00 [place] AM EDT Patient discharged. Emergency Attender: LITZY MCGHEE H 02/04/2020 11:24 :00 AM [facility]: STAFF ED STAFF EDT - 02/04/2020 [facility] PHYSICIANAdmitter: LITZY 03:35:00 PM EDT JELANI Horowitz Patient discharged. Emergency Attender: ED STAFF H 01/25/2020 06:06:00 PM [facility] PHYSICIANAttender: STAFF ED EDT - 01/26/2020 [facility] STAFF PHYSICIANAdmitter: ED 06:12:00 AM EDT STAFF PHYSICIAN Patient discharged. Emergency Attender: ARIC Sage 01/24/2020 08:18:00 PM [facility] Karen: STAFF ED STAFF EDT - 01/25/2020 [facility] PHYSICIANAdmitter: ARIC 06:04:00 AM EDT ADITHYA Duenas Patient discharged. Emergency Attender: JOES Sage 01/24/2020 01:40 :00 PM [facility] Daly: STAFF ED STAFF EDT - 01/24/2020 [facility] PHYSICIANAdmitter: JOSE 05:56:00 PM EDT MISTY GARCIA S Patient discharged. Emergency Attender: STAFF ED STAFF H 01/20/2020 03:33:00 PM [facility] PHYSICIAN EDT - 01/20/2020 06:41:00 [place] PM EDT Patient discharged. Emergency Attender: JOSE GARCIA 01/19/2020 11:13 :00 AM [facility] Daly: STAFF ED STAFF EDT - 01/19/2020 [facility] PHYSICIANAdmitter: JOSE 03:48:00 PM EDT MISTY GARCIA S Patient discharged. Emergency Attender: SON Sage 01/18/2020 09:44:00 PM [facility] Bobo: STAFF ED STAFF EDT - 01/19/2020 [facility] PHYSICIANAdmitter: SON 06:28:00 AM EDT ALESSANDRO Lackey Patient discharged. Outpatient Attender: [email or web address] [facility] 01/14/2020 01:13:05 PM I ([facility]ly [facility] EDT Collaborative) Patient admitted. Emergency Attender: JOSE Sage 01/06/2020 01:03 :00 PM [facility] Kauffman: STAFF ED STAFF EDT - 01/06/2020 [facility] PHYSICIANAdmitter: JOSE 09:00:00 PM EDT MISTY March Patient discharged. Emergency Attender: STAFF ED STAFF 01/05/2020 08:46:00 PM [facility] PHYSICIAN EDT - 01/06/2020 09:01:00 [facility] AM EDT Patient discharged. Emergency Attender: JOSE Sage 01/05/2020 02:24 :00 PM [facility] Daly: STAFF ED STAFF EDT - 01/05/2020 [facility] PHYSICIANAdmitter: JOSE 05:02:00 PM EDT MISTY March Patient discharged. Emergency Attender: STAFF ED STAFF 01/03/2020 08:50:00 PM [facility] PHYSICIAN EDT - 01/04/2020 06:32:00 [facility] AM EDT Patient discharged. Emergency Attender: ARIC Sage 12/30/2019 08:35:00 PM [facility] Karen: STAFF ED STAFF EDT - 12/31/2019 [facility] PHYSICIANAdmitter: ARIC 06:54:00 AM EDT ADITHYA W Patient discharged. Emergency Attender: ARIC Sage 12/30/2019 04:36:00 PM [facility] Karen: STAFF ED STAFF EDT - 12/31/2019 [facility] PHYSICIANAdmitter: ARIC 06:55:00 AM EDT ADITHYA W Patient discharged. Emergency Attender: LITZY Sage 12/29/2019 03:42 :00 PM [facility] STAFF ED STAFF EDT - 12/29/2019 [facility] PHYSICIANAdmitter: LITZY 08:14:00 PM EDT JELANI Horowitz Patient discharged. Emergency Attender: STAFF ED STAFF 12/28/2019 10:09:00 PM [facility] PHYSICIAN EDT - 12/29/2019 06:04:00 Center AM EDT Patient discharged. Emergency Attender: ARIC Sage 12/28/2019 01:13:00 AM [facility] Karen: STAFF ED STAFF EDT - 12/28/2019 [facility] PHYSICIANAdmitter: ARIC 09:44:00 AM EDT ADITHYA W Patient discharged. Emergency Attender: LITZY Sage 12/27/2019 06:29 :00 PM [facility]: ARIC HAJI EDT - 12/27/2019 [facility]: STAFF ED STAFF 10:06:00 PM EDT PHYSICIANAdmitter: LITZY Horowitz Patient discharged. Emergency Attender: JOSE Sage 12/27/2019 12:06 :[address] [facility]: LITZY PALOMARES EDT - 12/27/2019 [facility] Vane: STAFF ED 10:05:00 PM EDT STAFF PHYSICIANAdmitter: JOSE March Patient discharged. Emergency Attender: ARIC Sage-ER 12/24/2019 11:12:00 [facility]: STAFF ED STAFF PM EDT - 12/25/2019 [facility] PHYSICIANAdmitter: ARIC 05:53:00 AM EDT ADITHYA W Patient discharged. Emergency Attender: LITZY Sage 12/22/2019 04:41 :00 PM [facility]: STAFF ED STAFF EDT - 12/23/2019 [facility] PHYSICIANAdmitter: LITZY 06:19:00 AM EDT JELANI Horowitz Patient discharged. Emergency Attender: LITZY Sage 12/20/2019 08:52 :00 PM [facility]: STAFF ED STAFF EDT - 12/20/2019 [facility] PHYSICIANAdmitter: LITZY 11:29:00 PM EDT JELANI Horowtiz Patient discharged. Emergency Attender: ARIC Sage 12/18/2019 05:15:00 AM [facility]: STAFF ED STAFF EDT - 12/18/2019 [facility] PHYSICIANAdmitter: ARIC 06:04:00 AM EDT ADITHYA W Patient discharged. Emergency Attender: LITZY Sage 12/17/2019 04:35 :00 PM [facility]: STAFF ED STAFF EDT - 12/18/2019 [facility] PHYSICIANAdmitter: LITZY 03:16:00 AM EDT JELANI MCGHEE CReferrer: STAFF ED STAFF PHYSICIAN Patient discharged. Emergency Attender: ARIC Sage 12/16/2019 07:15:00 PM [facility] Karen: STAFF ED STAFF EDT - 12/17/2019 [facility] PHYSICIANAdmitter: ARIC 06:39:00 AM EDT ADITHYA Tyler: STAFF ED STAFF PHYSICIAN Patient discharged. Emergency Attender: ED STAFF H 12/16/2019 02:10:00 PM [facility] PHYSICIANAttender: STAFF ED EDT - 12/16/2019 [facility] STAFF PHYSICIANAdmitter: ED 05:38:00 PM EDT STAFF PHYSICIAN Patient discharged. Emergency Attender: JOSE Sage 12/14/2019 02:52 :00 PM [facility] ED STAFF EDT - 12/14/2019 [facility] PHYSICIANAttender: STAFF ED 09:24:00 PM EDT STAFF PHYSICIANAdmitter: JOSE March Patient discharged. Emergency Attender: FRANCISCA ED STAFF 12/10/2019 06:39:00 PM [facility] PHYSICIANAttender: ARIC EDT - 12/10/2019 [facility] ADITHYA Jnoes: STAFF ED 09:42:00 PM EDT STAFF PHYSICIANAdmitter: FRANCISCA ED STAFF PHYSICIAN Patient discharged. Emergency Attender: ED STAFF 12/09/2019 02:37:00 PM [facility] PHYSICIANAttender: STAFF ED EDT - 12/09/2019 [facility] STAFF PHYSICIANAdmitter: ED 04:39:00 PM EDT STAFF PHYSICIAN Patient discharged. Emergency Attender: ARIC Sage 12/08/2019 10:33:00 PM [facility] Karen: STAFF ED STAFF EDT - 12/09/2019 [facility] PHYSICIANAdmitter: ARIC 06:03:00 AM EDT ADITHYA Duenas Patient discharged. Emergency Attender: LITZY Sage 12/08/2019 01:04 :00 PM [facility] Vane: STAFF ED STAFF EDT - 12/08/2019 [facility] PHYSICIANAdmitter: LITZY 04:42:00 PM EDT JELANI Horowitz Patient discharged. Emergency Attender: STAFF ED STAFF 12/08/2019 01:26:00 AM [facility] Medical PHYSICIAN EDT - 12/08/2019 03:22:00 [place] AM EDT Patient discharged. Emergency Attender: ED STAFF H 12/07/2019 02:19:00 PM [facility] PHYSICIANAttender: STAFF ED EDT - 12/07/2019 [facility] STAFF PHYSICIANAdmitter: ED 06:57:00 PM EDT STAFF PHYSICIAN Patient discharged. Emergency Attender: LITZY Sage 12/06/2019 06:10 :00 PM [facility] CAttenthaddeus: STAFF ED STAFF EDT - 12/07/2019 [facility] PHYSICIANAdmitter: LITZY 12:43:00 AM EDT JELANI Horowitz Patient discharged. Emergency Attender: ARIC Sage 12/04/2019 08:59:00 PM [facility] Karen: STAFF ED STAFF EDT - 12/05/2019 [facility] PHYSICIANAdmitter: ARIC 05:48:00 AM EDT ADITHYA LERMAefkendraer: STAFF ED STAFF PHYSICIAN Patient discharged. Emergency Attender: ARIC Sage 12/03/2019 08:01:00 PM [facility] STAFF ED STAFF EDT - 12/03/2019 [facility] PHYSICIANAdmitter: ARIC 10:34:00 PM EDT ADITHYA W Patient discharged. Emergency Attender: ED STAFF 12/03/2019 01:49:00 PM [facility] PHYSICIANAttender: STAFF ED EDT - 12/03/2019 [facility] STAFF PHYSICIANAdmitter: ED 05:15:00 PM EDT STAFF PHYSICIANReferrer: STAFF ED STAFF PHYSICIAN Patient discharged. Emergency Attender: STAFF ED STAFF 12/02/2019 08:09:00 PM [facility] PHYSICIAN EDT - 12/03/2019 07:06:00 [facility] AM EDT Patient discharged. Emergency Attender: ED STAFF 11/30/2019 04:27:00 PM [facility] PHYSICIANAttender: STAFF ED EDT - 11/30/2019 [facility] STAFF PHYSICIANAdmitter: ED 11:51:00 PM EDT STAFF PHYSICIAN Patient discharged. Emergency Attender: STAFF ED STAFF 11/30/2019 03:04:00 AM [facility] PHYSICIAN EDT - 11/30/2019 07:04:00 [facility] AM EDT Patient discharged. Emergency Attender: LITZY Sage 11/29/2019 04:39 :00 PM [facility] CAttenthaddeus: STAFF ED STAFF EDT - 11/29/2019 [facility] PHYSICIANAdmitter: LITZY 10:06:00 PM EDT JELANI Horowitz Patient discharged. Emergency Attender: ARIC HAJI 11/25/2019 09:53:00 PM [facility] STAFF ED STAFF EDT - 11/26/2019 [facility] PHYSICIANAdmitter: ARIC 06:08:00 AM EDT ADITHYA Duenas Patient discharged. Emergency Attender: ED STAFF 11/25/2019 12:05:00 PM [facility] PHYSICIANAttender: Josue EDT - [facility]25/2019 [facility] MDA[facility] STAFF 03:49:00 PM EDT ED STAFF PHYSICIANAdmitter: ED STAFF PHYSICIAN Patient discharged. Emergency Attender: STAFF ED STAFF 11/24/2019 10:37:00 PM [facility] PHYSICIAN EDT - 11/25/2019 01:28:00 [facility] AM EDT Patient discharged. Emergency Attender: JOSE GARCIA 11/24/2019 02:04 :00 PM [facility]: LITZY PALOMARES EDT - 11/24/2019 [facility] LITZY Cifuentes: STAFF ED 05:13:00 PM EDT STAFF PHYSICIANAdmitter: JOSE March Patient discharged. Emergency Attender: ED STAFF 11/23/2019 05:20:00 PM [facility] PHYSICIANAttender: STAFF ED EDT - 11/24/2019 [facility] STAFF PHYSICIANAdmitter: ED 05:19:00 AM EDT STAFF PHYSICIAN Patient discharged. Emergency Attender: LITZY MCGHEE 11/22/2019 08:30 :00 PM [facility] STAFF ED STAFF EDT - 11/23/2019 [facility] PHYSICIANAdmitter: LITZY 06:02:00 AM EDT JELANI Horowitz Patient discharged. Emergency Attender: LITZY Sage 11/22/2019 01:37 :00 PM [facility] STAFF ED STAFF EDT - 11/22/2019 [facility] PHYSICIANAdmitter: LITZY 05:57:00 PM EDT JELANI Horowitz Patient discharged. Emergency Attender: LITZY Sage 11/20/2019 03:54 :00 PM [facility] STAFF ED STAFF EDT - 11/20/2019 [facility] PHYSICIANAdmitter: LITZY 07:33:00 PM EDT JELANI Horowitz Patient discharged. Emergency Attender: ARIC Sage 11/18/2019 01:25:00 PM [facility] Karen: STAFF ED STAFF EDT - 11/19/2019 [facility] PHYSICIANAdmitter: ARIC 01:40:00 AM EDT ADITHYA Duenas Patient discharged. Emergency Attender: STAFF ED STAFF H 11/16/2019 08:42:00 PM [facility] PHYSICIAN EDT - 11/17/2019 05:38:00 [facility] AM EDT Patient discharged. Emergency Attender: ED STAFF H 11/16/2019 01:46:00 PM [facility] PHYSICIANAttender: ED STAFF EDT - 11/16/2019 [facility] PHYSICIANAttender: STAFF ED 05:41:00 PM EDT STAFF PHYSICIANAdmitter: ED STAFF PHYSICIAN Patient discharged. Emergency Attender: JOSE Sage 11/10/2019 04:25 :00 PM [facility] Daly: STAFF ED STAFF EDT - 11/10/2019 [facility] PHYSICIANAdmitter: JOSE 08:35:00 PM EDT MISTY March Patient discharged. Emergency Attender: JOSE Sage 11/08/2019 02:38 :00 PM [facility] Daly: STAFF ED STAFF EDT - 11/08/2019 [facility] PHYSICIANAdmitter: JOSE 10:15:00 PM EDT MISTY GARCIA S Patient discharged. Emergency Attender: ARIC Sage 11/07/2019 10:18:00 PM [facility] Michellekatethaddeus: STAFF ED STAFF EDT - 11/14/2019 [facility] PHYSICIANAdmitter: ARIC 12:48:00 AM EDT ADITHYA Tyler: STAFF ED STAFF PHYSICIAN Patient discharged. Emergency Attender: ED STAFF 11/05/2019 01:32:00 PM [facility] PHYSICIANAttender: STAFF ED EDT - 11/05/2019 [facility] STAFF PHYSICIANAdmitter: ED 07:57:00 PM EDT STAFF PHYSICIAN Patient discharged. Emergency Attender: STAFF ED STAFF H 11/03/2019 09:29:00 PM [facility] PHYSICIAN EDT - 11/03/2019 11:21:00 [place] PM EDT Patient discharged. Emergency Attender: ED STAFF H 11/02/2019 07:07:00 PM [facility] PHYSICIANAttender: STAFF ED EDT - 11/03/2019 [facility] STAFF PHYSICIANAdmitter: ED 12:39:00 AM EDT STAFF PHYSICIAN Patient discharged. Emergency Attender: JOSE Sage 11/01/2019 02:09 :00 PM Edgardjoaquim Taythierno: STAFF ED STAFF EDT - 11/01/2019 [facility] PHYSICIANAdmitter: JOSE 09:18:00 PM EDT KENIATorsten GARCIA Joaquim Patient discharged. Emergency Attender: ED STAFF H 10/31/2019 06:02:00 PM [facility] PHYSICIANAttender: ED STAFF EDT - 10/31/2019 [facility] PHYSICIANAttender: STAFF ED 10:38:00 PM EDT STAFF PHYSICIANAdmitter: ED STAFF PHYSICIAN Patient discharged. Emergency Attender: ARIC Sage 10/30/2019 02:58:00 PM [facility] Karen: STAFF ED STAFF EDT - 10/31/2019 [facility] PHYSICIANAdmitter: ARIC 02:24:00 AM EDT ADITHYA Duenas Patient discharged. Emergency Attender: LITZY Sage 10/28/2019 08:51 :00 PM [facility] Vane: STAFF ED STAFF EDT - 10/29/2019 [facility] PHYSICIANAdmitter: LITZY 03:06:00 AM EDT JELANI Horowitz Patient discharged. Emergency Attender: LITZY Sage 10/27/2019 06:36 :00 PM [facility] Vane: STAFF ED STAFF EDT - 10/27/2019 [facility] PHYSICIANAdmitter: LITZY 10:23:00 PM EDT JELANI Horowitz Patient discharged. Emergency Attender: AIRC Sage 10/22/2019 06:02:00 PM [facility]: ED STAFF EDT - 10/22/2019 [facility] PHYSICIANAttender: STAFF ED 10:48:00 PM EDT STAFF PHYSICIANAdmitter: ARIC LERMAeferrer: STAFF ED STAFF PHYSICIAN Patient discharged. Emergency Attender: ED STAFF H 10/22/2019 01:07:00 AM [facility] PHYSICIANAttender: STAFF ED EDT - 10/22/2019 [facility] STAFF PHYSICIANAdmitter: ED 06:20:00 AM EDT STAFF PHYSICIAN Patient discharged. Emergency Attender: JOSE Sage 10/21/2019 03:39 :00 PM [facility] Daly: STAFF ED STAFF EDT - 10/22/2019 [facility] PHYSICIANAdmitter: JOSE 12:14:00 AM EDT MISTY March Patient discharged. Emergency Attender: STAFF ED STAFF H 10/21/2019 12:18:00 AM [facility] PHYSICIAN EDT - 10/21/2019 07:03:00 [place] AM EDT Patient discharged. Emergency Attender: ED STAFF H 10/19/2019 08:03:00 PM [facility] PHYSICIANAttender: STAFF ED EDT - 10/20/2019 [facility] STAFF PHYSICIANAdmitter: ED 06:09:00 AM EDT STAFF PHYSICIAN Patient discharged. Emergency Attender: ED STAFF H 10/18/2019 06:11:00 AM [facility] PHYSICIANAttender: STAFF ED EDT - 10/18/2019 [facility] STAFF PHYSICIANAdmitter: ED 09:49:00 PM EDT STAFF PHYSICIAN Patient discharged. Emergency Attender: ED STAFF H 10/17/2019 08:24:00 PM [facility] PHYSICIANAttender: GRAVES EDT - 10/17/2019 [facility] ADITHYA Jones: STAFF ED 11:42:00 PM EDT STAFF PHYSICIANAdmitter: ED STAFF PHYSICIAN Patient discharged. Emergency Attender: JOSE Sage 10/15/2019 01:27 :00 PM [facility] Daly: STAFF ED STAFF EDT - 10/15/2019 [facility] PHYSICIANAdmitter: JOSE 03:49:00 PM EDT MISTY March Patient discharged. Emergency Attender: LITZY Sage 10/13/2019 07:22 :00 PM [facility] Vane: STAFF ED STAFF EDT - 10/13/2019 [facility] PHYSICIANAdmitter: LITZY 10:35:00 PM EDT JELANI Horowitz Patient discharged. Emergency Attender: JOSE Sage 10/13/2019 07:53 :00 AM [facility] Daly: STAFF ED STAFF EDT - 10/13/2019 [facility] PHYSICIANAdmitter: JOSE 06:44:00 PM EDT MISTY March Patient discharged. Emergency Attender: STAFF ED STAFF 10/12/2019 12:49:00 AM [facility] PHYSICIAN EDT - 10/12/2019 02:10:00 [place] AM EDT Patient discharged. Emergency Attender: LITZY Sage 10/11/2019 02:37 :00 PM [facility] CAttender: STAFF ED STAFF EDT - 10/11/2019 [facility] PHYSICIANAdmitter: LITZY 08:39:00 PM EDT JELANI Horowtiz Patient discharged. Outpatient Attender: [id number] [facility] 10/10/2019 07:26:38 AM [facility] Patient admitted. Outpatient Attender: [id number] [facility] 10/10/2019 07:26:35 AM [facility] Patient admitted. Emergency Attender: JOSE GARCIA 10/06/2019 09:24 :[address] [facility]: STAFF ED STAFF EDT - 10/06/2019 [facility] PHYSICIANAdmitter: JOSE 11:20:00 AM EDT MISTY March Patient discharged. Emergency Attender: STAFF ED STAFF 10/05/2019 08:44:00 PM [facility] PHYSICIAN EDT - 10/06/2019 12:39:00 Center AM EDT Patient discharged. Inpatient Attender: TUYET PEREIRA -ED 09/17/2019 11:20:00 [facility] NELDATANAttender: STAFF ED PM EDT - 09/19/2019 [facility] STAFF PHYSICIANAdmitter: 07:49:00 AM EDT TUYET BENZReferrer: TUYET BENZ Patient discharged. Emergency Attender: Josue Sage 09/17/2019 05:08: 00 PM [facility] MDAttender: STAFF ED STAFF EDT - 09/18/2019 [facility] PHYSICIANAdmitter: Josue 04:33:00 AM EDT TanjaAndrea May: STAFF ED STAFF PHYSICIAN Patient discharged. Emergency Attender: STAFF ED STAFF 09/14/2019 08:44:00 PM [facility] PHYSICIAN EDT - 09/15/2019 09:09:00 Center AM EDT Patient discharged. Emergency Attender: LITZY MCGHEE 09/13/2019 07:30 :00 PM [facility] CAttenthaddeus: STAFF ED STAFF EDT - 09/14/2019 [facility] PHYSICIANAdmitter: LITZY 08:43:00 AM EDT JELANI Horowitz Patient discharged. Emergency Attender: JOSE Sage 09/13/2019 08:56 :00 AM [facility] Daly: STAFF ED STAFF EDT - 09/13/2019 [facility] PHYSICIANAdmitter: JOSE 01:13:00 PM EDT MISTY GARCIA S Patient discharged. Emergency Attender: STAFF ED STAFF H 09/12/2019 08:31:00 PM [facility] PHYSICIAN EDT - 09/13/2019 07:32:00 Center AM EDT Patient discharged. Emergency Attender: ARIC Sage 09/11/2019 08:42:00 PM [facility] Karen: STAFF ED STAFF EDT - 09/12/2019 [facility] PHYSICIANAdmitter: ARIC 06:36:00 PM EDT ADITHYA Reeveser: STAFF ED STAFF PHYSICIAN Patient discharged. Emergency Attender: LITZY Sage 09/11/2019 04:08 :00 PM [facility] Vane: STAFF ED STAFF EDT - 09/11/2019 [facility] PHYSICIANAdmitter: LITZY 06:54:00 PM EDT JELANI Horowitz Patient discharged. Emergency Attender: ARIC Sage 09/10/2019 04:50:00 PM [facility] Karen: STAFF ED STAFF EDT - 09/11/2019 [facility] PHYSICIANAdmitter: ARIC 08:33:00 PM EDT ADITHYA Reeveser: STAFF ED STAFF PHYSICIAN Patient discharged. Emergency Attender: ARIC Sage 09/08/2019 08:13:00 PM [facility] Karen: STAFF ED STAFF EDT - 09/09/2019 [facility] PHYSICIANAdmitter: ARIC 08:40:00 AM EDT ADITHYA Duenas Patient discharged. Emergency Attender: STAFF ED STAFF 09/07/2019 10:06:00 PM [facility] PHYSICIAN EDT - 09/08/2019 08:44:00 [place] AM EDT Patient discharged. Emergency Attender: JOSE Sage 09/05/2019 07:50 :00 AM [facility] Daly: ED STAFF EDT - 09/07/2019 [facility] PHYSICIANAttender: STAFF ED 06:44:00 AM EDT STAFF PHYSICIANAdmitter: JOSE March Patient discharged. Emergency Attender: STAFF ED STAFF H 09/04/2019 10:01:00 PM [facility] PHYSICIANReferrer: STAFF ED EDT - 09/05/2019 [facility] STAFF PHYSICIAN 08:15:00 AM EDT Patient discharged. Emergency Attender: LITZY Sage 09/04/2019 02:54 :00 PM [facility] CAtthierno: STAFF ED STAFF EDT - 09/04/2019 [facility] PHYSICIANAdmitter: LITZY 08:59:00 PM EDT JELANI MCGHEE CReferrer: STAFF ED STAFF PHYSICIAN Patient discharged. Emergency Attender: STAFF ED STAFF H 09/03/2019 08:39:00 PM [facility] PHYSICIANReferrer: STAFF ED EDT - 09/04/2019 [facility] STAFF PHYSICIAN 06:55:00 AM EDT Patient discharged. Emergency Attender: LITZY Sage 09/02/2019 04:49 :00 PM [facility] CAtthierno: ARIC HAJI EDT - 09/03/2019 [facility] WAttenthaddeus: STAFF ED STAFF 12:12:00 AM EDT PHYSICIANAdmitter: LITZY Horowitz Patient discharged. Outpatient Attender: [id number] [facility] 09/02/2019 07:16:17 AM I ([facility] EDT Collaborative) Patient admitted. Emergency Attender: ARIC Sage 09/01/2019 10:38:00 PM [facility] Karen: STAFF ED STAFF EDT - 09/01/2019 [facility] PHYSICIANAdmitter: ARIC 11:35:00 PM EDT ADITHYA Duenas Patient discharged. Emergency Attender: JOSE Sage 09/01/2019 12:48 :00 PM [facility] Daly: LITZY PALOMARES EDT - 09/01/2019 [facility] LITZY Cifuentes: STAFF ED 09:37:00 PM EDT STAFF PHYSICIANAdmitter: JOSE March Patient discharged. Emergency Attender: ARIC Sage 08/31/2019 07:31:00 PM [facility] STAFF ED STAFF EDT - 09/01/2019 [facility] PHYSICIANAdmitter: ARIC 04:06:00 AM EDT ADITHYA Duenas Patient discharged. Emergency Attender: ED STAFF H 08/29/2019 08:10:00 PM [facility] PHYSICIANAttender: STAFF ED EDT - 08/30/2019 [facility] STAFF PHYSICIANAdmitter: ED 08:39:00 AM EDT STAFF PHYSICIAN Patient discharged. Emergency Attender: ED STAFF H 08/28/2019 08:21:00 PM [facility] PHYSICIANAttender: STAFF ED EDT - 08/29/2019 [facility] STAFF PHYSICIANAdmitter: ED 08:53:00 AM EDT STAFF PHYSICIANReferrer: STAFF ED STAFF PHYSICIAN Patient discharged. Emergency Attender: ARIC HAJI 08/27/2019 08:45:00 PM [facility] WAttender: STAFF ED STAFF EDT - 08/28/2019 [facility] PHYSICIANAdmitter: ARIC 01:42:00 AM EDT ADITHYA Shantellerrer: STAFF ED STAFF PHYSICIAN Patient discharged. Emergency Attender: ED STAFF H 08/27/2019 05:26:00 AM [facility] PHYSICIANAttender: ED STAFF EDT - 08/27/2019 [facility] PHYSICIANAttender: STAFF ED 04:41:00 PM EDT STAFF PHYSICIANAdmitter: ED STAFF PHYSICIAN Patient discharged. Emergency Attender: FRANCISCA ED STAFF 08/25/2019 04:54:00 PM [facility] PHYSICIANAttender: LITZY EDT - 08/25/2019 [facility] JELANI MCGHEE CAttenthaddeus: 07:49:00 PM EDT STAFF ED STAFF PHYSICIANAdmitter: [facility] ED STAFF PHYSICIAN Patient discharged. Emergency Attender: FRANCISCA ED STAFF 08/24/2019 06:38:00 PM [facility] PHYSICIANAttender: STAFF ED EDT - 08/25/2019 [facility] STAFF PHYSICIANAdmitter: 05:59:00 AM EDT [facility] ED STAFF PHYSICIAN Patient discharged. Emergency Attender: FRANCISCA ED STAFF 08/23/2019 06:12:00 PM [facility] PHYSICIANAttender: STAFF ED EDT - 08/24/2019 [facility] STAFF PHYSICIAN 04:50:00 AM EDT Patient discharged. Emergency Attender: STAFF ED STAFF 08/22/2019 08:59:00 PM [facility] PHYSICIAN EDT - 08/23/2019 08:48:00 Center AM EDT Patient discharged. Emergency Attender: STAFF ED STAFF 08/21/2019 09:12:00 PM [facility] PHYSICIANReferrer: STAFF ED EDT - 08/22/2019 [facility] STAFF PHYSICIAN 06:01:00 AM EDT Patient discharged. Emergency Attender: ED STAFF H 08/20/2019 03:19:00 PM [facility] PHYSICIANAttender: STAFF ED EST - 08/20/2019 [facility] STAFF PHYSICIANAdmitter: ED 11:42:00 PM EST STAFF PHYSICIAN Patient discharged. Emergency Attender: ARIC Sage 08/19/2019 07:15:00 PM [facility]: STAFF ED STAFF EST - 08/20/2019 [facility] PHYSICIANAdmitter: GRAVES 03:04:00 AM EST ADITHYA Duenas Patient discharged. Emergency Attender: ED STAFF H 08/19/2019 03:56:00 PM [facility] PHYSICIANAttender: STAFF ED EST - 08/19/2019 [facility] STAFF PHYSICIANAdmitter: ED 06:55:00 PM EST STAFF PHYSICIAN Patient discharged. Emergency Attender: LITZY Sage 08/18/2019 03:54 :00 PM [facility] STAFF EST - 08/18/2019 [facility] PHYSICIANAdmitter: LITZY 10:23:00 PM EST JELANI Horowitz Patient discharged. Emergency Attender: ED STAFF H 08/17/2019 02:27:00 PM [facility] PHYSICIANAttender: STAFF ED EST - 08/18/2019 [facility] STAFF PHYSICIANAdmitter: ED 08:39:00 AM EST STAFF PHYSICIAN Patient discharged. Emergency Attender: STAFF ED STAFF H 08/17/2019 02:43:00 AM [facility] PHYSICIAN EST - 08/17/2019 09:44:00 [place] AM EST Patient discharged. Emergency Attender: EVA 08/16/2019 03:33:00 [facility] RICHARDAttender: EMERGENCY [facility] Health Care SERVICE, XAdmitter: [facility] Emergency Attender: LITZY Sage 08/12/2019 05:29 :00 PM [facility] FRANCISCA ED STAFF EST - 08/13/2019 [facility] PHYSICIANAttender: STAFF ED 05:43:00 AM EST STAFF PHYSICIANAdmitter: LITZY Horowitz Patient discharged. Emergency Attender: LITZY Sage 08/11/2019 05:01 :00 PM [facility] ED STAFF EST - 08/12/2019 [facility] PHYSICIANAdmitter: LITZY 12:41:00 AM EST JELANI Horowitz Patient discharged. Emergency Attender: ARIC Sage 08/10/2019 10:37:00 PM [facility] Karen: STAFF ED STAFF EST - 08/11/2019 [facility] PHYSICIANAdmitter: ARIC 01:01:00 AM EST ADITHYA W Patient discharged. Emergency Attender: AGUILAR ED STAFF 08/10/2019 04:09:00 PM [facility] PHYSICIANAttender: STAFF ED [facility] - 08/10/2019 [facility] STAFF PHYSICIANAdmitter: AGUILAR 11:02:00 PM EST ED STAFF PHYSICIAN Patient discharged. Emergency Attender: ARIC Sage 08/09/2019 07:25:00 PM [facility] WAtkatethaddeus: STAFF ED STAFF [facility] - 08/10/2019 [facility] PHYSICIANAdmitter: ARIC 09:58:00 AM EST ADITHYA W Patient discharged. Emergency Attender: LEONEL ED STAFF 08/08/2019 04:28:00 PM [facility] PHYSICIANAttender: STAFF ED [facility] 08/09/2019 [facility] STAFF PHYSICIANAdmitter: LEONEL 10:32:00 AM EST ED STAFF PHYSICIAN Patient discharged. Emergency Attender: ARIC Sage 08/06/2019 03:52:00 PM [facility] WAtthierno: ED STAFF [facility] 08/07/2019 [facility] PHYSICIANAttender: STAFF ED 12:38:00 AM EST STAFF PHYSICIANAdmitter: ARIC Duenas Patient discharged. Emergency Attender: LEONEL ED STAFF 08/01/2019 06:41:00 PM [facility] PHYSICIANAttender: STAFF ED [facility] 08/02/2019 [facility] STAFF PHYSICIANAdmitter: LEONEL 08:35:00 AM EST ED STAFF PHYSICIAN Patient discharged. Emergency Attender: STAFF ED STAFF 07/31/2019 11:25:00 PM [facility] PHYSICIAN EST - 08/01/2019 08:56:00 Center AM EST Patient discharged. Emergency Attender: LITZY MCGHEE 07/31/2019 05:39 :00 PM [facility] CAttenthaddeus: STAFF ED STAFF [facility] 07/31/2019 [facility] PHYSICIANAdmitter: LITZY 07:38:00 PM EST JELANI MCGHEE CReferrer: STAFF ED STAFF PHYSICIAN Patient discharged. Emergency Attender: STAFF ED STAFF 07/30/2019 07:01:00 PM [facility] PHYSICIANReferrer: STAFF ED [facility] - 07/31/2019 [facility] STAFF PHYSICIAN 04:29:00 PM EST Patient discharged. Emergency Attender: STAFF ED STAFF 07/29/2019 09:45:00 PM [facility] PHYSICIAN EST - 07/30/2019 07:10:00 [place] AM EST Patient discharged. Emergency Attender: LITZY Sage 07/28/2019 02:39 :00 PM [facility] CAttender: ARIC HAJI [facility] - 07/29/2019 [facility] WAttender: STAFF ED STAFF 01:25:00 AM EST PHYSICIANAdmitter: LITZY Horowitz Patient discharged. Emergency Attender: JOSE GARCIA 07/28/2019 03:16 :00 AM [facility] ED STAFF EST - 07/28/2019 [facility] PHYSICIANAdmitter: JOSE 10:10:00 AM EST MISTY GARCIA S Patient discharged. Emergency Attender: ED STAFF 07/27/2019 03:24:00 PM [facility] PHYSICIANAttender: STAFF ED EST - 07/27/2019 [facility] STAFF PHYSICIANAdmitter: ED 10:57:00 PM EST STAFF PHYSICIAN Patient discharged. Emergency Attender: JOSE GARCIA 07/26/2019 02:36 :[address] [facility]: STAFF ED STAFF EST - 07/26/2019 [facility] PHYSICIANAdmitter: JOSE 06:36:00 PM EST KENIATorsten GARCIA S Patient discharged. Emergency Attender: ARIC Sage 07/22/2019 12:21:00 AM [facility] Karen: STAFF ED STAFF [facility] - 07/22/2019 [facility] PHYSICIANAdmitter: ARIC 01:50:00 AM EST ADITHYA W Patient discharged. Emergency Attender: FRANCISCA ED STAFF 07/17/2019 07:28:00 PM [facility] PHYSICIANAttender: STAFF ED EST - 07/17/2019 [facility] STAFF PHYSICIANAdmitter: 10:56:[address] [facility] ED STAFF PHYSICIANReferrer: STAFF ED STAFF PHYSICIAN Patient discharged. Emergency Attender: FRANCISCA ED STAFF 07/16/2019 03:07:00 PM [facility] PHYSICIANAttender: STAFF ED EST - 07/17/2019 [facility] STAFF PHYSICIANAdmitter: 03:19:00 AM EST [facility] Patient discharged. Emergency Attender: ARIC HAJI H-ER 07/15/2019 01:02:00 [facility] WAtthierno: STAFF ED STAFF AM [facility] - 07/15/2019 [facility] PHYSICIANAdmitter: ARIC 03:10:00 AM EST ADITHYA W Patient discharged. Emergency Attender: JOSE GARCIA 07/14/2019 07:29 :00 AM [facility] Daly: STAFF ED STAFF [facility] 07/14/2019 [facility] PHYSICIANAdmitter: JOSE 12:19:00 PM EST [place] JOSE S Patient discharged. Emergency Attender: ARIC Sage 07/13/2019 05:30:00 PM [facility] Karen: STAFF ED STAFF [facility] 07/14/2019 [facility] PHYSICIANAdmitter: ARIC 05:30:00 AM EST ADITHYA W Patient discharged. Emergency Attender: STAFF ED STAFF 07/13/2019 03:03:00 AM [facility] PHYSICIAN [facility] 07/13/2019 10:05:00 Center AM EST Patient discharged. Emergency Attender: STAFF ED STAFF 07/12/2019 09:37:00 PM [facility] PHYSICIAN [facility] 07/13/2019 12:34:00 Center AM EST Patient discharged. Emergency Attender: JOSE GARCIA 07/12/2019 01:34 :00 PM [facility] STAFF ED STAFF [facility] 07/12/2019 [facility] PHYSICIANAdmitter: JOSE 11:37:00 PM EST KENIAO JOSE S Patient discharged. Emergency Attender: STAFF ED STAFF 07/09/2019 10:13:00 PM [facility] PHYSICIANReferrer: STAFF ED [facility] 07/09/2019 [facility] STAFF PHYSICIAN 11:20:00 PM EST Patient discharged. Emergency Attender: ARIC Sage 07/09/2019 11:25:00 AM [facility] Karen: STAFF ED STAFF [facility] 07/09/2019 [facility] PHYSICIANAdmitter: ARIC 03:37:00 PM EST ADITHYA W Patient discharged. Emergency Attender: STAFF ED STAFF 07/08/2019 08:14:00 PM [facility] PHYSICIAN [facility] 07/09/2019 07:23:00 Center AM EST Patient discharged. Emergency Attender: LITZY MCGHEE 07/07/2019 07:49 :00 PM [facility] ST[facility] ED STAFF [facility] 07/07/2019 [facility] PHYSICIANAdmitter: LITZY 09:07:00 PM EST JELANI Horowitz Patient discharged. Emergency Attender: JOSE GARCIA 07/07/2019 12:23 :00 PM [facility] Daly: STAFF ED STAFF [facility] - 07/07/2019 [facility] PHYSICIANAdmitter: JOSE 04:56:00 PM EST MISTY March Patient discharged. Emergency Attender: Josue Sage 07/06/2019 06:30: 00 PM [facility] MDAttender: STAFF ED STAFF [facility] - 07/07/2019 [facility] PHYSICIANAdmitter: Josue 02:40:00 AM EST [facility] [place] Patient discharged. Emergency Attender: STAFF ED STAFF 07/05/2019 10:18:00 PM [facility] PHYSICIAN [facility] - 07/06/2019 07:08:00 Center AM EST Patient discharged. Emergency Attender: ED STAFF 07/04/2019 05:56:00 PM [facility] PHYSICIANAttender: ED STAFF [facility] 07/05/2019 [facility] PHYSICIANAttender: STAFF ED 09:10:00 AM EST STAFF PHYSICIANAdmitter: ED STAFF PHYSICIANReferrer: STAFF ED STAFF PHYSICIAN Patient discharged. Emergency Attender: STAFF ED STAFF 07/03/2019 10:40:00 PM [facility] PHYSICIANReferrer: STAFF ED [facility] 07/04/2019 [facility] STAFF PHYSICIAN 06:45:00 AM EST Patient discharged. Emergency Attender: ED STAFF 07/02/2019 06:17:00 PM [facility] PHYSICIANAttender: STAFF ED [facility] 07/02/2019 [facility] STAFF PHYSICIANAdmitter: ED 08:42:00 PM EST STAFF PHYSICIANReferrer: STAFF ED STAFF PHYSICIAN Patient discharged. Emergency Attender: ARIC Sage 07/01/2019 11:08:00 PM [facility] Karen: STAFF ED STAFF [facility] 07/02/2019 [facility] PHYSICIANAdmitter: ARIC 04:14:00 AM EST ADITHYA W Patient discharged. Emergency Attender: ARIC Sage 07/01/2019 07:08:00 PM [facility] Karen: STAFF ED STAFF [facility] 07/01/2019 [facility] PHYSICIANAdmitter: ARIC 09:50:00 PM EST ADITHYA W Patient discharged. Emergency Attender: STAFF ED STAFF 06/29/2019 09:17:00 PM [facility] PHYSICIAN EST - 06/30/2019 04:12:00 Center AM EST Patient discharged. Emergency Attender: STAFF ED STAFF 06/29/2019 03:02:00 AM [facility] PHYSICIAN [facility] - 06/29/2019 09:25:00 Center AM EST Patient discharged. Emergency Attender: STAFF ED STAFF 06/28/2019 09:08:00 PM [facility] PHYSICIAN [facility] - 06/28/2019 11:20:00 [place] PM EST Patient discharged. Emergency Attender: LITZY MCGHEE 06/28/2019 12:59 :00 PM [facility]: STAFF ED STAFF [facility] 06/28/2019 [facility] PHYSICIANAdmitter: LITZY 06:29:00 PM EST JELANI MCGHEE C Patient discharged. Emergency Attender: ARIC HAJI 06/27/2019 11:57:00 PM [facility] Karen: STAFF ED STAFF [facility] 06/28/2019 [facility] PHYSICIANAdmitter: ARIC 02:12:00 AM EST ADITHYA W Patient discharged. Emergency Attender: JOSE GARCIA 06/27/2019 12:51 :00 PM [facility]: STAFF ED STAFF [facility] 06/27/2019 [facility] PHYSICIANAdmitter: JOSE 09:36:00 PM EST MISTY ROMEONY S Patient discharged. Emergency Attender: ARIC HAJI 06/27/2019 03:59:00 AM [facility]: STAFF ED STAFF [facility] 06/27/2019 [facility] PHYSICIANAdmitter: ARIC 06:26:00 AM EST ADITHYA W Patient discharged. Emergency Attender: STAFF ED STAFF 06/24/2019 10:59:00 PM [facility] PHYSICIAN [facility] - 06/25/2019 07:44:00 [place] AM EST Patient discharged. Emergency Attender: ED STAFF 06/24/2019 01:51:00 PM [facility] PHYSICIANAttender: STAFF ED [facility] - 06/24/2019 [facility] STAFF PHYSICIANAdmitter: ED 10:37:00 PM EST STAFF PHYSICIAN Patient discharged. Emergency Attender: LITZY MCGHEE 06/23/2019 04:58 :00 PM [facility]: STAFF ED STAFF [facility] 06/24/2019 [facility] PHYSICIANAdmitter: LITZY 02:50:00 AM EST JELANI Horowitz Patient discharged. Emergency Attender: LITZY MCGHEE 06/16/2019 06:18 :00 [facility] ST[facility]FF EST - 06/16/2019 [facility] PHYSICIANAdmitter: LITZY 09:48:00 PM EST JELANI Horowitz Patient discharged. Emergency Attender: STAFF ED STAFF H 06/16/2019 05:45:00 AM [facility] PHYSICIAN EST - 06/16/2019 05:52:00 Center AM EST Patient discharged. Emergency Attender: JOSE JAY 06/16/2019 02:25:00 [facility] - 06/16/2019 09:02 :00 Center ED STAFF PHYSICIAN AM EST Patient discharged. Emergency Attender: ED STAFF H 06/15/2019 01:01:00 PM [facility] PHYSICIANAttender: STAFF ED EST - 06/15/2019 [facility] STAFF PHYSICIANAdmitter: ED 07:10:00 PM EST STAFF PHYSICIAN Patient discharged. Emergency Attender: LITZY Sage 06/14/2019 08:05 :00 PM [facility] CAttenthaddeus: ARIC HAJI [facility] - 06/15/2019 [facility] WAttender: STAFF ED STAFF 06:52:00 AM EST PHYSICIANAdmitter: LITZY Horowitz Patient discharged. Emergency Attender: ARIC Sage 06/13/2019 06:15:00 PM [facility] FRANCISCA ED STAFF [facility] - 06/14/2019 [facility] PHYSICIANAttender: STAFF ED 05:26:00 AM EST STAFF PHYSICIANAdmitter: ARIC Duenas Patient discharged. Emergency Attender: FRANCISCA ED STAFF 06/12/2019 08:47:00 PM [facility] PHYSICIANAttender: STAFF ED EST - 06/12/2019 [facility] STAFF PHYSICIANAdmitter: 09:46:00 PM [facility] PHYSICIANReferrer: STAFF ED STAFF PHYSICIAN Patient discharged. Emergency Attender: FRANCISCA ED STAFF 06/12/2019 05:09:00 PM [facility] PHYSICIANAttender: LITZY [facility] - 06/12/2019 [facility] JELANI MCGHEE CAttender: 06:37:00 PM EST STAFF ED STAFF PHYSICIANAdmitter: [facility] ED STAFF PHYSICIANReferrer: STAFF ED STAFF PHYSICIAN Patient discharged. Emergency Attender: ARIC Sage 06/10/2019 05:55:00 PM [facility]: STAFF ED STAFF EST - 06/10/2019 10:3 4:00 Center PHYSICIAN PM EST Patient discharged. Emergency Attender: LITZY Sage 06/09/2019 08:54 :00 PM [facility] ARIC HAJI [facility] - 06/09/2019 [facility]: STAFF ED STAFF 10:57:00 PM EST PHYSICIANAdmitter: LITZY MCGHEE C Patient discharged. Emergency Attender: LITZY Sage 06/09/2019 06:18 :00 PM [facility]: STAFF ED STAFF [facility] - 06/09/2019 [facility] PHYSICIANAdmitter: LITZY 07:46:00 PM EST JELANI CAVAZOSIAN C Patient discharged. Emergency Attender: LITZY Sage 06/09/2019 02:23 :00 PM [facility] ST[facility]FF [facility] - 06/09/2019 [facility] PHYSICIANAdmitter: LITZY 06:43:00 PM EST JACIELWILLIAMMITALI LITZY C Patient discharged. Emergency Attender: ARIC Sage 06/08/2019 08:07:00 PM [facility]: LITZY PALOMARES [facility] - 06/09/2019 [facility] STAFF ED 08:46:00 AM EST STAFF PHYSICIANAdmitter: ARIC Tyler: STAFF ED STAFF PHYSICIAN Patient discharged. Emergency Attender: LITZY MCGHEE 06/07/2019 04:26 :00 PM [facility]: STAFF ED STAFF [facility] - 06/07/2019 [facility] PHYSICIANAdmitter: LITZY 08:39:00 PM EST JELANI LITZY C Patient discharged. Emergency Attender: LEONEL ED STAFF 06/06/2019 06:19:00 PM [facility] PHYSICIANAttender: STAFF ED EST - 06/06/2019 [facility] STAFF PHYSICIANAdmitter: LEONEL 11:22:00 PM EST ED STAFF PHYSICIAN Patient discharged. Emergency Attender: JOSE GARCIA 06/06/2019 11:50 :00 AM [facility] ST[facility]FF [facility] - 06/06/2019 [facility] PHYSICIANAdmitter: JOSE 06:05:00 PM EST MISTY March Patient discharged. Emergency Attender: STAFF ED STAFF 06/05/2019 05:53:00 PM [facility] PHYSICIANReferrer: STAFF ED EST - 06/06/2019 [facility] STAFF PHYSICIAN 11:24:00 AM EST Patient discharged. Emergency Attender: ED STAFF H 06/03/2019 02:42:00 PM [facility] PHYSICIANAttender: STAFF ED EST - 06/03/2019 [facility] STAFF PHYSICIANAdmitter: ED 07:12:00 PM EST STAFF PHYSICIAN Patient discharged. Emergency Attender: STAFF ED STAFF H 06/02/2019 03:47:00 PM [facility] Medical PHYSICIAN EST - 06/03/2019 06:24:00 Center AM EST Patient discharged. Emergency Attender: STAFF ED STAFF H-ER 06/01/2019 07:03:00 [facility] PHYSICIANAdmitter: STAFF ED PM EST - 06/02/2019 [facility] STAFF PHYSICIAN 09:42:00 AM EST Patient discharged. Emergency Attender: LEONEL ED STAFF H 06/01/2019 01:42:00 PM [facility] PHYSICIANAttender: STAFF ED EST - 06/01/2019 [facility] STAFF PHYSICIANAdmitter: LEONEL 01:45:00 PM EST ED STAFF PHYSICIAN Patient discharged. Emergency Attender: AGUILAR ED STAFF H 06/01/2019 01:37:00 PM [facility] PHYSICIANAttender: LEONEL ED [facility] - 06/01/2019 [facility] STAFF PHYSICIANAttender: STAFF 04:28:00 PM EST ED STAFF PHYSICIANAdmitter: AGUILAR ED STAFF PHYSICIAN Patient discharged. Emergency Attender: ED STAFF 05/31/2019 02:29:00 PM [facility] PHYSICIANAttender: STAFF ED EST - 05/31/2019 [facility] STAFF PHYSICIANAdmitter: ED 08:32:00 PM EST STAFF PHYSICIAN Patient discharged. Emergency Attender: ARIC Sage 05/29/2019 02:39:00 PM [facility] Karen: STAFF ED STAFF [facility] - 05/30/2019 [facility] PHYSICIANAdmitter: ARIC 07:02:00 AM EST ADIHTYA W Patient discharged. Emergency Attender: ARIC Sage 05/28/2019 09:23:00 PM [facility] Karen: STAFF ED STAFF EST - 05/29/2019 [facility] PHYSICIANAdmitter: ARIC 07:28:00 AM EST ADITHYA WReferrer: STAFF ED STAFF PHYSICIAN Patient discharged. Emergency Attender: LEONEL ED STAFF H 05/28/2019 01:26:00 PM [facility] PHYSICIANAttender: STAFF ED EST - 05/29/2019 [facility] STAFF PHYSICIANAdmitter: LEONEL 01:06:00 AM EST ED STAFF PHYSICIAN Patient discharged. Emergency Attender: LEONEL ED STAFF H 05/24/2019 06:37:00 PM [facility] PHYSICIANAttender: STAFF ED EST - 05/25/2019 [facility] STAFF PHYSICIAN 10:33:00 AM EST Patient discharged. Emergency Attender: JOSE GARCIA H 05/24/2019 12:04 :00 PM [facility] Jasvirthierno: STAFF ED STAFF EST - 05/24/2019 [facility] PHYSICIANAdmitter: JOSE 09:12:00 PM EST MISTY GARCIA S Patient discharged. Emergency Attender: FRANCISCA ED STAFF H 05/22/2019 10:10:00 PM [facility] PHYSICIANAttender: STAFF ED EST - 05/23/2019 [facility] STAFF PHYSICIANAdmitter: 09:05:00 AM EST [facility] Patient discharged. Emergency Attender: LITZY Sage 05/22/2019 02:13 :00 PM [facility] CAttenthaddeus: FRANCISCA ED STAFF EST - 05/23/2019 [facility] PHYSICIANAttender: STAFF ED 12:13:00 AM EST STAFF PHYSICIANAdmitter: LITZY Horowitz Patient discharged. Emergency Attender: FRANCISCA ED STAFF H 05/21/2019 02:44:00 PM [facility] PHYSICIANAttender: LEONEL ED EST - 05/22/2019 [facility] STAFF PHYSICIANAttender: STAFF 12:01:00 AM EST ED STAFF PHYSICIANAdmitter: FRANCISAC ED STAFF PHYSICIAN Patient discharged. Emergency Attender: ARIC Sage 05/20/2019 06:51:00 PM [facility] Randolphthaddeus: STAFF ED STAFF EST - 05/21/2019 [facility] PHYSICIANAdmitter: ARIC 11:22:00 AM EST ADITHYA W Patient discharged. Emergency Attender: ARIC Sage 05/19/2019 09:29:00 PM [facility] Randolphthaddeus: STAFF ED STAFF EST - 05/20/2019 [facility] PHYSICIANAdmitter: ARIC 06:30:00 AM EST ADITHYA W Patient discharged. Emergency Attender: AGUILAR ED STAFF H 05/18/2019 01:40:00 PM [facility] PHYSICIANAttender: STAFF ED EST - 05/18/2019 [facility] STAFF PHYSICIANAdmitter: AGUILAR 10:18:00 PM EST ED STAFF PHYSICIAN Patient discharged. Emergency Attender: STAFF ED STAFF H 05/17/2019 11:12:00 PM [facility] Medical PHYSICIAN EST - 05/18/2019 08:10:00 Center AM EST Patient discharged. Emergency Attender: JOSE Sage 05/17/2019 12:42 :00 PM [facility] SAttender: LITZY PALOMARES EST - 05/17/2019 [facility] LITZY Cifuentes: STAFF ED 10:01:00 PM EST STAFF PHYSICIANAdmitter: JOSE March Patient discharged. Emergency Attender: STAFF ED STAFF H 05/16/2019 08:04:00 PM [facility] PHYSICIANReferrer: STAFF ED EST - 05/17/2019 [facility] STAFF PHYSICIAN 08:38:00 AM EST Patient discharged. Emergency Attender: ARIC Sage 05/15/2019 04:42:00 PM [facility] STAFF ED STAFF EST - 05/16/2019 [facility] PHYSICIANAdmitter: ARIC 08:39:00 AM EST ADITHYA Tyler: STAFF ED STAFF PHYSICIAN Patient discharged. Emergency Attender: FRANCISCA ED STAFF H 05/14/2019 11:53:00 PM [facility] PHYSICIANAttender: STAFF ED EST - 05/15/2019 [facility] STAFF PHYSICIANAdmitter: 06:49:[address] [facility] ED STAFF PHYSICIAN Patient discharged. Emergency Attender: FRANCISCA ED STAFF H 05/14/2019 03:32:00 PM [facility] PHYSICIANAttender: STAFF ED EST - 05/14/2019 [facility] STAFF PHYSICIANAdmitter: 11:00:[address] [facility] ED STAFF PHYSICIAN Patient discharged. Inpatient Attender: RACHEL CORNEJO H-HAL5 05/07/2019 08:12:00 [facility] AKINOAttender: STAFF ED STAFF AM EST - 05/14/20 [facility] PHYSICIANAdmitter: RACHEL 10:16:00 AM EST CLEMENTE OLSENOReferrer: RACHEL RAMOS Patient discharged. Emergency Attender: ARIC Sage 05/06/2019 05:37:00 PM [facility] WAttender: STAFF ED STAFF EST - 05/07/2019 [facility] PHYSICIANAdmitter: ARIC 04:16:00 AM EST ADITHYA Duenas Patient discharged. Emergency Attender: JOSE GARCIA 05/05/2019 04:09 :00 PM [facility] SAttenthaddeus: ARIC HAJI [facility] - 05/06/2019 [facility] WAttender: STAFF ED STAFF 09:14:00 AM EST PHYSICIANAdmitter: JOSE JAY JOSE S Patient discharged. Emergency Attender: STAFF ED STAFF H 05/04/2019 08:43:00 PM [facility] PHYSICIAN [facility] - 05/05/2019 06:47:00 Center AM EST Patient discharged. Emergency Attender: STAFF ED STAFF H 05/02/2019 03:18:00 PM [facility] PHYSICIAN [facility] - 05/02/2019 11:40:00 Center PM EST Patient discharged. Emergency Attender: LITZY MCGHEE 05/01/2019 02:04 :00 PM [facility] STAFF [facility] - 05/01/2019 [facility] PHYSICIANAdmitter: LITZY 07:36:00 PM EST JELANI Horowitz Patient discharged. Emergency Attender: ED STAFF 04/30/2019 07:51:00 PM [facility] PHYSICIANAttender: STAFF ED [facility] - 05/01/2019 [facility] STAFF PHYSICIANAdmitter: ED 07:42:00 AM EST STAFF PHYSICIANReferrer: STAFF ED STAFF PHYSICIAN Patient discharged. Emergency Attender: STAFF ED STAFF 04/30/2019 02:40:00 PM [facility] PHYSICIAN [facility] - 04/30/2019 09:24:00 Center PM EST Patient discharged. Emergency Attender: ARIC HAJI 04/29/2019 08:43:00 PM [facility]: STAFF ED STAFF [facility] - 04/30/2019 [facility] PHYSICIANAdmitter: ARIC 07:18:00 AM EST ADITHYA Duenas Patient discharged. Emergency Attender: STAFF ED STAFF 04/29/2019 02:53:00 AM [facility] PHYSICIAN [facility] - 04/29/2019 09:26:00 Center AM EST Patient discharged. Emergency Attender: JOSE GARCIA 04/28/2019 03:54 :00 PM [facility] STAFF [facility] - 04/28/2019 [facility] PHYSICIANAdmitter: JOSE 09:41:00 PM EST MISTY JOSE S Patient discharged. Emergency Attender: Josue Sage 04/27/2019 03:35:00 PM [facility] Andrea MDAttender: STAFF ED EST - 04/28/2019 Center STAFF PHYSICIAN 05:12:00 PM EST Patient discharged. Emergency Attender: STAFF ED STAFF H 04/26/2019 12:56:00 PM [facility] PHYSICIAN EST - 04/27/2019 05:57:00 Center AM EST Patient discharged. Emergency Attender: ARIC Sage 04/24/2019 01:54:00 AM [facility] - 04/24/2019 [facility] PHYSICIANAdmitter: ARIC 09:19:00 AM EST ADITHYA W Patient discharged. Emergency Attender: LEONEL ED STAFF H 04/23/2019 01:05:00 PM [facility] PHYSICIANAttender: STAFF ED EST - 04/23/2019 [facility] STAFF PHYSICIANAdmitter: LEONEL 08:40:00 PM EST ED STAFF PHYSICIAN Patient discharged. Emergency Attender: LITZY Sage 04/22/2019 04:09 :00 PM [facility] CAttenthaddeus: JOSE JAY [facility] - 04/23/2019 [facility] JOSE Kauffman: STAFF ED 08:02:00 AM EST STAFF PHYSICIANAdmitter: LITZY Horowitz Patient discharged. Emergency Attender: JOSE GARCIA 04/21/2019 12:10 :00 PM [facility] Daly: ARIC HAJI [facility] - 04/22/2019 [facility] WAttenthaddeus: STAFF ED STAFF 06:50:00 AM EST PHYSICIANAdmitter: ARIC Duenas Patient discharged. Emergency Attender: AGUILAR ED STAFF H 04/20/2019 01:07:00 PM [facility] PHYSICIANAttender: FRANCISCA YOUNG EST - 04/21/2019 [facility] STAFF PHYSICIANAttender: STAFF 05:19:00 AM EST ED STAFF PHYSICIANAdmitter: AGUILAR ED STAFF PHYSICIAN Patient discharged. Emergency Attender: STAFF ED STAFF H 04/19/2019 09:58:00 PM [facility] PHYSICIAN EST - 04/20/2019 08:24:00 Center AM EST Patient discharged. Emergency Attender: LITZY Sage 04/19/2019 05:01 :00 PM [facility] STAFF ED STAFF EST - 04/19/2019 [facility] PHYSICIANAdmitter: LITZY 07:11:00 PM EST JELANI Horowitz Patient discharged. Emergency Attender: JOSE GARCIA H 04/19/2019 01:30 :00 PM [facility] SAttender: LITZY PALMOARES EST - 04/19/2019 [facility] LITZY Cifuentes: STAFF ED 07:00:00 PM EST STAFF PHYSICIANAdmitter: JOSE March Patient discharged. Emergency Attender: LEONEL ED STAFF H 04/18/2019 02:10:00 PM [facility] PHYSICIANAttender: STAFF ED EST - 04/19/2019 [facility] Center STAFF PHYSICIAN 08:34:00 AM EST Patient discharged. Emergency Attender: STAFF ED STAFF H 04/17/2019 07:23:00 PM [facility] PHYSICIAN EST - 04/18/2019 08:39:00 Center AM EST Patient discharged. Emergency Attender: LITZY MCGHEE H 04/16/2019 05:51 :00 PM [facility]: ARIC HAJI EDT - 04/17/2019 [facility] WAttender: STAFF ED STAFF 03:56:00 AM EST PHYSICIANAdmitter: LITZY MCGHEE CReferrer: STAFF ED STAFF PHYSICIAN Patient discharged. Emergency H 04/11/2019 06:11:00 PM EDT - [address] [place] [address] 06:15:00 PM EDT Patient discharged. Emergency Admitter: ARIC HAJI [facility] 04/11/2019 06:10:00 PM [facility] EDT - 04/12/2019 06:22:00 Center AM EDT Patient discharged. Emergency Attender: ED STAFF H 04/10/2019 07:46:00 PM [facility] PHYSICIANAdmitter: ED STAFF EDT - 04/11/2019 [facility] PHYSICIAN 07:41:00 AM EDT Patient discharged. Emergency Admitter: ED STAFF H 04/09/2019 09:12:00 PM [facility] PHYSICIAN EDT - 04/10/2019 07:41:00 Center AM EDT Patient discharged. Emergency H 04/08/2019 05:24:00 PM EDT - [address] [place] [address] 07:14:00 AM EDT Patient discharged. Emergency H 04/07/2019 04:50:00 AM EDT - [address] [place] [address] 08:39:00 AM EDT Patient discharged. Emergency Attender: AGUILAR ED STAFF H 04/06/2019 12:36:00 PM [facility] PHYSICIANAdmitter: AGUILAR ED EDT - 04/06/2019 [facility] STAFF PHYSICIAN 06:56:00 PM EDT Patient discharged. Emergency H 04/06/2019 01:23:00 AM EDT - [address] [place] [address] 01:23:00 PM EDT Patient discharged. Emergency H-ER 04/05/2019 03:07:00 PM EDT - [facility] 04/05/2019 10:17:00 PM EDT Patient discharged. Emergency Admitter: LEONEL ED STAFF H 04/04/2019 04:47:00 PM [facility] PHYSICIAN EDT - 04/05/2019 08:41:00 Center AM EDT Patient discharged. Emergency H 04/03/2019 05:58:00 PM EDT - [address] [place] [address] 07:07:00 AM EDT Patient discharged. Emergency H 04/02/2019 08:14:00 PM EDT - [address] [place] [address] 05:08:00 AM EDT Patient discharged. Emergency H 04/01/2019 07:44:00 PM EDT - [address] [place] [address] 07:05:00 AM EDT Patient discharged. Emergency H 03/31/2019 02:22:00 PM EDT - [address] [place] [address] 04:41:00 PM EDT Patient discharged. Emergency H 03/30/2019 04:51:00 PM EDT - [address] [place] [address] 08:20:00 AM EDT Patient discharged. Emergency H-ER 03/26/2019 06:15:00 PM EDT - [facility] 03/27/2019 07:01:00 AM EDT Patient discharged. Emergency H 03/25/2019 03:53:00 PM EDT - [address] [place] [address] 07:45:00 AM EDT Patient discharged. Emergency H 03/24/2019 07:50:00 PM EDT - [address] [place] [address] 06:06:00 AM EDT Patient discharged. Emergency H 03/24/2019 12:27:00 PM EDT - [address] [place] [address] 02:32:00 PM EDT Patient discharged. Emergency H 03/23/2019 01:31:00 PM EDT - [address] [place] [address] 06:43:00 AM EDT Patient discharged. Emergency H 03/22/2019 10:58:00 PM EDT - [address] [place] [address] 08:46:00 AM EDT Patient discharged. Emergency H 03/16/2019 09:22:00 PM EDT - [address] [place] [address] 08:35:00 AM EDT Patient discharged. Emergency H 03/11/2019 06:34:00 PM EDT - [address] [place] [address] 06:53:00 AM EDT Patient discharged. Emergency H 03/10/2019 06:16:00 PM EDT - [address] [place] [address] 06:17:00 AM EDT Patient discharged. Emergency H 03/05/2019 08:33:00 PM EDT - [address] [place] [address] 06:17:00 AM EDT Patient discharged. Emergency H 03/04/2019 10:25:00 PM EDT - [address] [place] [address] 06:21:00 AM EDT Patient discharged. Emergency H 03/03/2019 06:39:00 PM EDT - [address] [place] [address] 08:38:00 AM EDT Patient discharged. Emergency H 03/02/2019 04:28:00 PM EDT - [address] [place] [address] 06:28:00 AM EDT Patient discharged. Emergency H-ER 03/01/2019 07:38:00 PM EDT - [facility] 03/02/2019 06:43:00 AM EDT Patient discharged. Emergency H 03/01/2019 11:58:00 AM EDT - [address] [place] [address] 03:10:00 PM EDT Patient discharged. Emergency H 02/28/2019 07:10:00 PM EDT - [address] [place] [address] 06:36:00 AM EDT Patient discharged. Emergency H 02/27/2019 04:55:00 PM EDT - [address] [place] [address] 09:21:00 PM EDT Patient discharged. Emergency H 02/24/2019 01:31:00 PM EDT - [address] [place] [address] 05:19:00 PM EDT Patient discharged. Emergency H 02/23/2019 10:43:00 PM EDT - [address] [place] [address] 06:26:00 AM EDT Patient discharged. Emergency Attender: AGUILAR ED STAFF H 02/23/2019 03:53:00 PM [facility] PHYSICIANAdmitter: AGUILAR ED EDT - 02/23/2019 [facility] STAFF PHYSICIAN 11:10:00 PM EDT Patient discharged. Emergency H 02/22/2019 05:36:00 PM EDT - [address] [place] [address] 08:17:00 AM EDT Patient discharged. Emergency H 02/21/2019 05:19:00 PM EDT - [address] [place] [address] 09:06:00 AM EDT Patient discharged. Emergency H 02/19/2019 04:37:00 PM EDT - [address] [place] [address] 06:12:00 AM EDT Patient discharged. Emergency H 02/18/2019 05:43:00 PM EDT - [address] [place] [address] 10:19:00 PM EDT Patient discharged. Emergency H 02/17/2019 07:32:00 PM EDT - [address] [place] [address] 10:22:00 AM EDT Patient discharged. Emergency H 02/17/2019 11:35:00 AM EDT - [address] [place] [address] 05:03:00 PM EDT Patient discharged. Emergency Attender: AGUILAR ED STAFF H 02/16/2019 08:31:00 PM [facility] PHYSICIAN EDT - 02/17/2019 09:52:00 Center AM EDT Patient discharged. Emergency H 02/15/2019 01:28:00 PM EDT - [address] [place] [address] 06:06:00 PM EDT Patient discharged. Emergency H 02/14/2019 08:12:00 PM EDT - [address] [place] [address] 08:23:00 AM EDT Patient discharged. Emergency H 02/13/2019 07:09:00 PM EDT - [address] [place] [address] 08:26:00 AM EDT Patient discharged. Emergency H 02/12/2019 01:57:00 PM EDT - [address] [place] [address] 04:14:00 AM EDT Patient discharged. Emergency H 02/11/2019 07:52:00 PM EDT - [address] [place] [address] 06:29:00 AM EDT Patient discharged. Emergency H 02/11/2019 01:28:00 PM EDT - [address] [place] [address] 06:46:00 PM EDT Patient discharged. Emergency H 02/09/2019 08:58:00 PM EDT - [address] [place] [address] 06:43:00 AM EDT Patient discharged. Emergency H 02/08/2019 01:31:00 PM EDT - [address] [place] [address] 08:50:00 AM EDT Patient discharged. Emergency H 02/07/2019 09:32:00 PM EDT - [address] [place] [address] 09:31:00 AM EDT Patient discharged. Emergency Attender: [facility] 02/05/2019 04:12:00 [facility] [place] [facility] - 02/06/2019 02:51:00 Center AM EDT Patient discharged. Emergency H 02/04/2019 06:27:00 PM EDT - [address] [place] [address] 06:44:00 AM EDT Patient discharged. Emergency H 02/03/2019 08:22:00 PM EDT - [address] [place] [address] 08:16:00 AM EDT Patient discharged. Emergency H-ER 01/26/2019 06:27:00 PM EDT - [facility] 01/27/2019 06:21:00 AM EDT Patient discharged. Inpatient Attender: ELIANA AMES 01/24/2019 07:34:00 [facility] BARBEGOAdmitter: ELIANA RECINOS EDT - 01/26/2019 [facility] BARBEGOReferrer: ELIANA 09:40:00 AM EDT FAVIO Patient discharged. Inpatient Attender: ELIANA AMES 01/19/2019 12:40:00 [facility] - 01/24/2019 [facility] LEEAdmitter: ELIANA 08:33:00 AM EDT SAMANIEGOReferrer: ELIANA STAHL Patient discharged. Immunizations Vaccine Date Status Description Data Source(s) Tdap 09/17/2019 completed [facility] 08:17:00 PM EDT Center Note that this vaccine 08/19/2019 completed [facility] Medical name has changed. See 08:48:00 PM EST Ce nter also Td (adult). It is not adsorbed. Note that this vaccine 08/19/2019 completed [facility] name has changed. See 08:48:00 PM EST Ce nter also Td (adult). It is not adsorbed. Note that this vaccine 06/28/2019 completed [facility] Medical name has changed. See 12:42:00 AM EST Ce nter also Td (adult). It is not adsorbed. Medications Medication Brand Start Product Dose Route Administrative Pharmacy [facility] Indications Reaction Description Data Name Date [...] NaCl 0.9% 999 UNK active 0.9% NaCl [facility] IV NaCl 2020 mL IV 1000 mL; [facility] IV 05:17: IV rate: Health 42 PM Bolus over Care EST 30 minutes Corporati o n Medication administered onsite 0.9% 0.9% 08/16/2019 1000 mL UNK active 0.9% [facility] NaCl IV NaCl IV 05:17:42 PM IV 1000 mL[facility] EST IV rate: Care Bolus over Corporati on 30 minutes Medication administered onsite Insurance Providers Payer name Policy type Policy ID Covered Covered democrat's Policy P robert / Coverage democrat ID relationship to Thompson Inf ormation type thompson JM [id number] SP [id number] 300 HEALTH NON CAP JM CARE W [id number] 01 [id number] [place] [id number] SP [id number] JM [id number] SP [id number] 300 HEALTH NON CAP MEDICAID [id number] SP [id number] JM CARE W [id number] 01 [id number] W [id number] JM CARE W [id number] 01 [id number] SELF PAY [id number] Self [id number] MEDICAID INP [id number] Self [id number] U REHAB MMC JM [id number] Self [id number] CARE MEDICAID [id number] SP [id number] JM CARE W [id number] 01 [id number] [place] [id number] SP [id number] JM W [id number] 01 [id number] UNK UNK UNK UNK UNK UNK JM CARE W [id number] 01 [id number] [place] J[place] CARE W [id number] 01 [id number] [place] J[place] CARE W [id number] 01 [id number] JM W [id number] 01 [id number] JM CARE W [id number] 01 [id number] 13 [place] J[place] CARE W [id number] 01 [id number] [place] J[place] C[place] W [id number] 01 [id number] [place] W [id number] 01 [id number] "" W [id number] 01 [id number] JM CARE W [id number] 01 [id number] 13 [facility] [id number] SP [id number] Y W [id number] 01 [id number] W [id number] 01 [id number] JM W [id number] 01 [id number] 300 JM W [id number] 01 [id number] 300 W [id number] 01 [id number] JM W [id number] Problems, Conditions, and Diagnoses Code Display Name Description Problem Type Effective Data Sour ce(s) Dates Z59.0 Homelessness HOMELESSNESS Diagnosis 04/02/2020 [facility] 07:25:00 PM Medical Cente r EDT J44.9 Chronic obstructive CHRONIC Diagnosis 04/02/2020 [facility] pulmonary disease, OBSTRUCTIVE 07:25:00 PM [facility] unspecified PULMONARY DISEASE, EDT UNSPECIFIED F10.20 Alcohol dependence, ALCOHOL Diagnosis 04/02/2020 [facility] uncomplicated DEPENDENCE, 07:25:00 PM Medical C enter UNCOMPLICATED EDT F10.129 Alcohol abuse with ALCOHOL ABUSE WITH Diagnosis 0 [facility] intoxication, INTOXICATION, 07:25:00 PM Medical Center unspecified UNSPECIFIED EDT M54.9 Dorsalgia, DORSALGIA, Diagnosis 04/01/2020 [facility] unspecified UNSPECIFIED 03:08:[address] EDT F17.210 Nicotine NICOTINE Diagnosis 03/24/2020 [facility] dependence, DEPENDENCE, 05:26:[address] cigarettes, CIGARETTES, EDT uncomplicated UNCOMPLICATED 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 03/20/2020 [facility] heart disease of DISEASE OF [place] 01:00:00 PM Medical Center [place] coronary CORONARY ARTERY EDT artery without W/O ANG PCTRS angina pectoris E83.42 Hypomagnesemia HYPOMAGNESEMIA Diagnosis 03/20/2020 [facility] 01:00:00 PM Medical Cente r EDT E87.6 Hypokalemia HYPOKALEMIA Diagnosis 03/20/2020 [facility] 01:[facility]:00 PM [facility] Cent[facility] r EDT D50.9 Iron deficiency IRON DEFICIENCY Diagnosis 03/20/2020 [facility] anemia, unspecified ANEMIA, 01:00:00 PM [facility] UNSPECIFIED EDT I10 Essential (primary) ESSENTIAL Diagnosis 03/20/2020 [facility] hypertension (PRIMARY) 01:00:[address] HYPERTENSION EDT M54.5 Low back pain LOW BACK PAIN Diagnosis 03/20/2020 [facility] sephs 01:00:00 PM [facility] r EDT E78.00 Pure PURE Diagnosis 03/20/2020 [facility] hypercholesterolemi HYPERCHOLESTEROLEM 01:00:00 PM Medical Center a, [...] Quiros pulmonary embolism OF PULMONARY 01:00:00 PM [facility] Center EMBOLISM EDT I24.9 Acute ischemic ACUTE [...] s 01:40:00 PM Medical Cente r EDT Z76.5 Malingerer MALINGERER Diagnosis 12/30/2019 [facility] [conscious (CONSCIOUS 08:35:00 PM Medical Cente r simulation] SIMULATION) EDT R40.2410 [place] coma scale RASHAD COMA SCALE Diagnosis 0 [...] disorder, single DISORDER, SINGLE 06:39:00 PM edical [place] episode, EPISODE, EDT unspecified UNSPECIFIED M54.2 Cervicalgia CERVICALGIA Diagnosis 12/08/2019 [facility] 01:04:00 PM Medical Cente r EDT Y92.[address] AND Diagnosis 11/30/2019 S aint [place] and highway as the HIGHWAY PL[address] 03:04:[address] of occurrence EDT of the external cause Y93.9 Activity, ACTIVITY, Diagnosis 11/30/2019 [facility] unspecified UNSPECIFIED 03:04:[address] EDT W19.XXXA Unspecified fall, UNSPECIFIED FALL, Diagnosis 11/30/2019 [facility] initial encounter INITIAL ENCOUNTER 03:04:00 AM Medical Center EDT S01.91XA Laceration without LACERATION W/O Diagnosis 11/30/2019 [facility] [place] foreign body of FOREIGN BODY OF 03:04:00 AM [facility] unspecified part of UNSP PART OF [...] eyeball and orbital EYEBALL AND 05:20:00 [facility] tissues, left eye, ORBITAL TISSUES, EDT initial encounter LEFT EYE, INIT S00.212A Abrasion of left ABRASION OF LEFT Diagnosis 11/23/2019 Sa rebel [place] eyelid and EYELID AND 05:20:00 PM [...] head, initial OF HEAD, INITIAL 01:37:00 PM [facility] Center encounter ENCOUNTER EDT U07.1 COVID-19 ACUTE COVID-19 ACUTE Diagnosis 10/30/2019 [facility] RESPIRATORY DISEASE RESPIRATORY 02:58:00 PM [facility] DISEASE EDT R06.00 Dyspnea, DYSPNEA, Diagnosis 10/30/2019 [facility] unspecified UNSPECIFIED 02:58:[address] [facility] [address] EDT Z00.00 Encounter for ENCNTR FOR GENERAL Diagnosis 10/21/2019 Rafael Quiros general adult ADULT MEDICAL EXAM 12:18:[address] [facility] medical examination W/O ABNORMAL EDT without abnormal FINDINGS findings Y93.89 Activity, other ACTIVITY, OTHER Diagnosis 10/18/2019 Ronald Quiros specified SPECIFIED 06:11:00 AM Medical Cente r EDT S80.211A Abrasion, right ABRASION, RIGHT Diagnosis 10/18/2019 [facility] knee, initial KNEE, INITIAL 06:11:00 AM Medical Center encounter ENCOUNTER EDT Z04.89 ENCOUNTER FOR ENCOUNTER FOR Diagnosis 10/18/2019 [facility] young EXAMINATION AND EXAMINATION AND 06:11:00 AM [facility] OBSERVATION FOR OTH OBSERVATION FOR EDT REASONS OTH REASONS R41.0 Disorientation, DISORIENTATION, Diagnosis 10/13/2019 Ronaldlexi Quiros unspecified UNSPECIFIED 07:53:[address] EDT M25.511 Pain in right PAIN IN RIGHT Diagnosis 10/11/2019 [facility] shoulder SHOULDER 02:37:00 PM Medical Cente r EDT R06.02 Shortness of breath SHORTNESS OF Diagnosis 10/06/2019 Rafaelwallace Quiros BREATH 09:24:00 AM Medical Cente r EDT R51 Headache HEADACHE Diagnosis 09/19/2019 [facility] 07:49:00 [facility] F17.200 Nicotine NICOTINE Diagnosis 09/19/2019 [facility] dependence, DEPENDENCE, 07:49:[address] unspecified, UNSPECIFIED, EDT uncomplicated UNCOMPLICATED D64.9 Anemia, unspecified ANEMIA, Diagnosis 09/19/2019 [facility] UNSPECIFIED 07:49:00 AM Medical [facility] er EDT M62.81 Muscle weakness MUSCLE WEAKNESS Diagnosis 09/19/2019 Ronaldlexi Jacomes (generalized) (GENERALIZED) 07:49:00 AM Medical Center EDT E46 Unspecified UNSPECIFIED Diagnosis 09/19/2019 [facility] protein-calorie PROTEIN-CALORIE 07:49:00 AM [facility] malnutrition MALNUTRITION EDT Z68.30 Body mass index BODY MASS INDEX Diagnosis 09/19/2019 Ronald tabitha Jacomes (BMI) 30.0-30.9, (BMI) 30.0-30.9, 07:49:00 AM [facility] adult ADULT EDT H70.90 Unspecified UNSPECIFIED Diagnosis 09/17/2019 [facility] mastoiditis, MASTOIDITIS, 05:08:00 PM Medical C enter unspecified ear UNSPECIFIED EAR EDT M19.90 Unspecified UNSPECIFIED Diagnosis 09/17/2019 Edgard joaquim osteoarthritis, OSTEOARTHRITIS, 05:08:00 PM [facility] unspecified site UNSPECIFIED SITE EDT S00.03XA Contusion of scalp, CONTUSION OF Diagnosis 09/17/2019 Rafael [facility] initial encounter SCALP, INITIAL 05:08:00 PM Il dical [place] ENCOUNTER EDT S00.01XA Abrasion of scalp, ABRASION OF SCALP, Diagnosis 0 [facility] [place] initial encounter INITIAL ENCOUNTER 05:08:00 PM Medical [place] EDT R05 Cough COUGH Diagnosis 09/13/2019 [facility] 08:56:00 AM Medical [facility] EDT R50.9 Fever, unspecified FEVER, UNSPECIFIED Diagnosis 0 [facility] 07:50:00 AM Medical [facility] EDT S22.089A Unspecified UNSP FRACTURE OF Diagnosis 08/27/2019 [facility] fracture of T11-T12 T11-T12 VERTEBRA, 08:45:00 PM Medical [place] vertebra, initial INIT FOR CLOS FX EDT encounter for closed fracture S01.01XA Laceration without LACERATION WITHOUT Diagnosis 0 [facility] foreign body of FOREIGN BODY OF 07:15:00 PM [facility] scalp, initial SCALP, INITIAL EST encounter ENCOUNTER Z91.018 Allergy to other ALLERGY TO OTHER Diagnosis 08/16/2019 [facility] FO[facility]S 03:33:00 PM [facility] I10 Essential (primary) ESSENTIAL Diagnosis 08/16/2019 [facility] oliver hypertension (PRIMARY) 03:33:00 PM [facility] HYPERTENSION EST Care [employer] F10.10 Alcohol abuse, ALCOHOL ABUSE, Diagnosis 08/16/2019 [place] uncomplicated UNCOMPLICATED 03:33:00 PM [facility] [place] [employer] F10.129 Alcohol abuse with ALCOHOL ABUSE WITH Diagnosis 0 [place] intoxication, INTOXICATION, 03:33:00 PM [facility] unspecified UNSPECIFIED [employer] [facility] [employer] K57.90 Diverticulosis of DVRTCLOS OF Diagnosis 08/08/2019 [place] intestine, part INTEST, PART UNSP, 04:28:00 PM Medical Center unspecified, W/O PERF OR EST without perforation ABSCESS W/O BLEED or abscess without bleeding R10.9 Unspecified UNSPECIFIED Diagnosis 08/08/2019 [facility] [place] abdominal pain ABDOMINAL PAIN 04:28:00 PM [facility] EST M79.641 Pain in right hand PAIN [...] Quiros general examination OTHER GENERAL 08:47:00 PM [facility] EXAM[facility] EST M25.512 Pain in left [...] Zepeda phs urgency URGENCY 10:16:00 AM [facility] EST Y90.0 Blood alcohol level BLOOD ALCOHOL Diagnosis 05/14/2019 int [place] of less than 20 LEVEL OF LESS THAN 10:16:00 AM Medical Center mg/100 ml 20 MG/100 ML EST M25.519 Pain in unspecified PAIN IN Diagnosis 05/02/2019 [facility] shoulder UNSPECIFIED 03:18:00 PM [facility] er SHOULDER EST Y92.[address] as the SIDEWALK THE Diagnosis 04/29/[address] of occurrence PLACE OF 02:53:00 AM [facility] of the external OCCURRENCE OF THE EST cause EXTERNAL CAUSE S42.031A Displaced fracture DISP FX OF LATERAL Diagnosis 9 [facility] of lateral end of END OF RIGHT 01:54:00 AM [facility] right clavicle, CLAVICLE, INIT FOR EST initial encounter CLOS FX for closed fracture F10.29 Alcohol dependence ALCOHOL DEPENDENCE Diagnosis 9 [facility] with unspecified WITH UNSPECIFIED 04:09:00 PM [facility] [place] 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 Procedure and PROC/TRTMT NOT CRD Diagnosis 02/27/2019 Rafael Quiros treatment not OUT D/T PT LV BEF 04:55:00 PM [facility] carried out due to SEEN BY [facility] CARE EDT patient leaving [facility] prior to being seen by health care provider L60.0 Ingrowing nail INGROWING NAIL Diagnosis 02/15/2019 [facility] 01:28:00 [facility] Results ID Date Data Source Liver 03/20/2020 05:45:[address] [facility] Profile.[id number] Name Value Range Interpretation Description Data Sup [...] s"> (0.2-1.3 MG/DL)</content> ID Date Data Source HematologyRou.[id number] 03/20/2020 05:45:00 AM EDT Rafael nt [facility] 0400 Name Value Range Interpretation [...] KCUMM)</content > UNK 0.0 <content [facility] styleCode="Bold Sihaan ">Nucleated Red Medical Blood Cell Center Count [...] (< 1 %)</content> ID Date Data Source GFR(Creatinine).[id number] 03/20/2020 05:45:00 AM EDT [facility] 0-0400 Name Value Range Interpretation Code Description Data Pebbles rce(s) Supporting Document(s ) UNK > 60 <content [facility] styleCode="Bold"> Medical Cent er EGFR </content>144 GFR<content styleCode="Italic s"> (> 60 GFR)</content> ID Date Data Source Coagulation 03/20/2020 05:45:00 AM [facility] ical [place] Rout.[id number] EDT Name Value Range Interpretation Description Data Sup porting Code Source(s) Document(s ) UNK 9.0-13.0 <content [facility] styleCode="Bold" [place] >Protime Medical </content>12.5 Center SEC<content styleCode="Itali cs"> (9.0-13.0 SEC)</content> INR in 0.80-1.2 <content Saint Platelet poor 0 styleCode="Bold" [facility] plasma by >INR Medical Coagulation </content>1.13 Center assay #<content styleCode="Itali cs"> (0.80-1.20 #)</content> aPTT in 25.1-36. <content [facility] Platelet poor 5 styleCode="Bold" [place] plasma by >Partial Medical Coagulation Thromboplastin Center assay Time </content>28.0 SEC<content styleCode="Itali cs"> (25.1-36.5 SEC)</content> ID Date Data Source CHMROUTINECCDA.[id number] 03/20/2020 05:45:00 AM EDT [facility] -0400 Name Value Range Interpretation [...] (2.5-4.5 MG/DL)</conten t> ID Date Data Source [facility].[id number] 03/20/2020 05:45:00 AM EDT [facility] Name Value Range Interpretation Description Data Sup porting Code Source(s) Document(s ) Chloride 98-107 <content [facility] [Moles/volume] in styleCode="Bold"> [facility] Serum or Plasma Chloride Medical </content>102 Center MEQ/L<content styleCode="Italic s"> (98-107 MEQ/L)</content> Sodium 137-145 Below low <content [facility] [Moles/volume] in normal styleCode="Bold"> [facility] Serum or Plasma Sodium Medical </content>136 Center MEQ/L L<content styleCode="Italic s"> (137-145 MEQ/L)</content> Potassium 3.5-5.3 Below lower <content [facility] [Moles/volume] in panic limits styleCode="Bold"> [facility] Serum or Plasma Potassium Medical </content><conten Center [...] Data Source Liver 03/19/2020 05:30:[address] [facility] Profile.[id number] Name Value Range Interpretation Description Data Sup [...] s"> (0.2-1.3 MG/DL)</content> ID Date Data Source HematologyRou.[id number] 03/19/2020 05:30:00 AM EDT Rafael [facility] 0400 Name Value Range Interpretation Description Data Sup porting Code Source(s) Document(s ) Erythrocytes 4.4-5.9 Below low normal <content Saint [#/volume] in styleCode="Bold [place] Blood by ">Red Blood Medical Automated count Cell Count Center </content>3.68 MCUMM L<content styleCode="Ital ics"> (4.4-5.9 MCUMM)</content > Leukocytes 4.4-11.0 <content [facility] [#/volume] in styleCode="Bold [place] Blood by ">White Blood Medical Automated count Cell Count Center </content>6.03 KCUMM<content styleCode="Ital ics"> (4.4-11.0 KCUMM)</content > Hemoglobin 13.5-17. Below low normal <content [facility] [Mass/volume] in 5 styleCode="Bold [place] Blood ">Hemoglobin Medical </content>9.5 Center G/DL L<content styleCode="Ital ics"> (13.5-17.5 G/DL)</content> Erythrocyte mean 80.0-100 <content [facility] corpuscular .0 styleCode="Bold [facility] volume [Entitic ">Mean Medical volume] by Corpuscular [...] ics"> (0-0.1 KCUMM)</content > UNK 0.0 <content styleCode="Bold [place] ">Nucleated Red Medical Blood Cell Center Count </content>0.00 KCUMM<content styleCode="Ital ics"> (0.0 KCUMM)</content > UNK < 1 <content [facility] styleCode="Bold [place] ">Immature Medical Granulocyte Center Ratio </content>0.3 %<content styleCode="Ital ics"> (< 1 %)</content> ID Date Data Source GFR(Creatinine).[id number] 03/19/2020 05:30:00 AM EDT Rafael [facility] 0-0400 Name Value Range Interpretation Code Description Data Pebbles rce(s) Supporting Document(s ) UNK > 60 <content [facility] styleCode="Bold"> Medical Cent er EGFR </content>177 GFR<content styleCode="Italic s"> (> 60 GFR)</content> ID Date Data Source Coagulation 03/19/2020 05:30:00 AM [facility] ical Center Rout.[id number] EDT Name Value Range Interpretation Description Data Sup porting Code Source(s) Document(s ) UNK 9.0-13.0 Above high normal <content [facility] styleCode="Bold" [place] >Protime Medical </content>13.1 Center SEC [...] cs"> (25.1-36.5 SEC)</content> ID Date Data Source CHMROUTINECCDA.[id number] 03/19/2020 05:30:00 AM EDT [facility] -0400 Name Value Range Interpretation [...] (6.3-8.2 G/DL)</content > ID Date Data Source [facility].[id number] 03/19/2020 05:30:00 AM EDT [facility] Medical Center Name Value Range Interpretation Description [...] Data Source Liver 03/18/2020 06:51:[address] [facility] Profile.[id number] Name Value Range Interpretation Description Data Sup [...] s"> (3.5-5.0 G/DL)</content> ID Date Data Source HematologyRou.[id number] 03/18/2020 06:51:00 AM [facility] Name Value Range Interpretation [...] ics"> (0.0-0.3 KCUMM)</content > UNK 0.0 <content styleCode="Bold [place] ">Nucleated Red Medical Blood Cell Center Count </content>0.00 KCUMM<content styleCode="Ital ics"> (0.0 KCUMM)</content > UNK 0-0.1 <content styleCode="Bold [place] ">Immature Medical Granulocyte Center Count </content>0.03 KCUMM<content styleCode="Ital ics"> (0-0.1 KCUMM)</content > UNK < 1 <content styleCode="Bold [place] ">Immature Medical Granulocyte Center Ratio </content>0.5 %<content styleCode="Ital ics"> (< 1 %)</content> ID Date Data Source GFR(Creatinine).[id number] 03/18/2020 06:51:00 AM EDT Rafael [facility] 0-0400 Name Value Range Interpretation Code Description Data Pebbles rce(s) Supporting Document(s ) UNK > 60 <content [facility] styleCode="Bold"> Medical Cent er EGFR </content>229 GFR<content styleCode="Italic s"> (> 60 GFR)</content> ID Date Data Source Coagulation 03/18/2020 06:51:00 AM [facility] ical Center Rout.[id number] EDT Name Value Range Interpretation Description Data [...] cs"> (25.1-36.5 SEC)</content> ID Date Data Source REMIGIO.[id number] 03/18/2020 06:51:00 AM EDT [facility] -0400 Name Value Range Interpretation [...] (6.3-8.2 G/DL)</content > ID Date Data Source BloodBank.[id number] 03/18/2020 06:51:00 AM EDT [facility] Name Value Range Interpretation Code Description Data Pebbles rce(s) Supporting Document(s ) UNK <content [facility] [place] styleCode="Bold" Medical Cente r >Blood Type </content>GROUP O (Reference Range: not available)
UNK NEGATIVE <content [facility] styleCode="Bold" Medical Cente r >Antibody Screen </content>NEGATI VE <content styleCode="Itali cs"> (NEGATIVE )</content> UNK <content [facility] styleCode="Bold" Medical Cente r >RH Type </content>POSITI VE (Reference Range: not available)
ID Date Data Source [facility].[id number] 03/18/2020 06:51:00 AM EDT [facility] Name Value Range Interpretation Description Data [...] Date Data Source Coagulation 03/17/2020 08:48:00 PM [facility] ical Center Rout.[id number] EDT Name Value Range Interpretation Description Data Sup porting Code Source(s) Document(s ) aPTT in 25.1-36. Above high normal <content [facility] Platelet poor 5 styleCode="Bold" [facility] plasma by >Partial Medical Coagulation Thromboplastin Center assay Time </content>90.0 SEC H<content styleCode="Itali cs"> (25.1-36.5 SEC)</content> ID Date Data Source Stools.[id number] 03/17/2020 03:45:[address] [facility] Name Value Range Interpretation Code Description Data Pebbles rce(s) Supporting Document(s ) UNK NEGATIVE <content [facility] styleCode="Bold" Medical Cente r >Guaiac, Occult Blood </content>NEGATI VE <content styleCode="Itali cs"> (NEGATIVE )</content> ID Date Data Source Liver 03/17/2020 10:30:[address] [facility] Profile.[id number] Name Value Range Interpretation Description Data Sup porting Code Source(s) Document(s ) Aspartate 17-59 <content [facility] aminotransferase styleCode="Bold"> [facility] hs [Enzymatic Aspartate Medical activity/volume] Aminotransferase Center [...] s"> (3.5-5.0 G/DL)</content> ID Date Data Source HematologyRou.[id number] 03/17/2020 10:30:00 AM EDT Rafael [facility] 0400 Name Value Range Interpretation Description Data [...] NORMAL <content [facility] styleCode="Bold [place] ">Polychromasia Medical </content>[facility] T <content styleCode="Ital ics"> (NORMAL )</content> UNK NORMAL <content [facility] styleCode="Bold [place] ">Hypochromia Medical </content>[facility] T <content styleCode="Ital ics"> (NORMAL )</content> UNK NORMAL <content [facility] styleCode="Bold [place] ">RBC Medical Morphology Center </content>ABNOR MAL <content styleCode="Ital ics"> (NORMAL )</content> UNK NORMAL <content [facility] styleCode="Bold [place] ">Anisocyte Medical </content>[facility] T <content styleCode="Ital ics"> (NORMAL )</content> UNK NORMAL <content [facility] styleCode="Bold [place] ">Macrocyte Medical </content>[facility] T <content styleCode="Ital ics"> (NORMAL )</content> UNK NORMAL <content [facility] styleCode="Bold [place] ">Microcyte Medical </content>[facility] T <content styleCode="Ital ics"> (NORMAL )</content> ID Date Data Source GFR(Creatinine).[id number] 03/17/2020 10:30:00 AM EDT [facility] 0-0400 Name Value Range Interpretation Code Description Data Pebbles rce(s) Supporting Document(s ) UNK > 60 <content [facility] styleCode="Bold"> Medical Cent er EGFR </content>144 GFR<content styleCode="Italic s"> (> 60 GFR)</content> ID Date Data Source ChemistrySpecia.[id number] 03/17/2020 10:30:00 AM EDT [facility] 0-0400 Name Value Range Interpretation Description Data Sup porting Code Source(s) Document(s ) Cobalamin 239-931 <content [facility] (Vitamin B12) styleCode="Mac [place] [Mass/volume] d">Vitamin B12 Medical in Serum or </content>265 Center Plasma PG/ML<content styleCode="Zakia lics"> (239-931 PG/ML)</conten t> Folate > 3.0 <content Saint [Mass/volume] styleCode="Mac [place] in Serum or d">Folic Acid Medical Plasma </content>4.27 Center NG/ML<content styleCode="Zakia lics"> (> 3.0 NG/ML)</conten t> ID Date Data Source REMIGIO.[id number] 03/17/2020 10:30:00 AM EDT [facility] -0400 Name Value Range Interpretation [...] ics"> (6.3-8.2 G/DL)</content> ID Date Data Source CardiacMarkers.[id number] 03/17/2020 10:30:00 AM EDT [facility] -0400 Name Value Range Interpretation Description Data Sup porting Code Source(s) Document(s ) Troponin < 0.034 <content Saint I.cardiac styleCode="Bold [place] [Mass/volume ">Troponin I Medical ] in Serum </content>< Center or Plasma 0.012 NG/ML<content styleCode="Ital ics"> (< 0.034 NG/ML)</content > ID Date Data Source BMP.[id number] 03/17/2020 10:30:00 AM EDT [facility] Name Value Range Interpretation Description Data [...] s"> (0.2-1.3 MG/DL)</content> ID Date Data Source [facility].[id number] 03/17/2020 07:25:00 AM EDT [facility] -0400 Name Value Range Interpretation Description Data Sup porting Code Source(s) Document(s ) Troponin < 0.034 <content [facility] I.cardiac styleCode="Bold [place] [Mass/volume ">Troponin I Medical ] in Serum </content>< Center or Plasma 0.012 NG/ML<content styleCode="Ital ics"> (< 0.034 NG/ML)</content > ID Date Data Source HematologyRou.[id number] 03/17/2020 07:06:00 AM EDT [facility] 0400 Name Value Range Interpretation [...] (0.0 KCUMM)</content > ID Date Data Source GFR(Creatinine).[id number] 03/17/2020 07:06:00 AM EDT [facility] 0-0400 Name Value Range Interpretation Code Description Data Pebbles rce(s) Supporting Document(s ) UNK > 60 <content [facility] styleCode="Bold"> Medical Cent er EGFR </content>144 GFR<content styleCode="Italic s"> (> 60 GFR)</content> ID Date Data Source REMIGIO.[id number] 03/17/2020 07:06:00 AM EDT [facility] -0400 Name Value Range Interpretation [...] (1.6-2.3 MG/DL)</conten t> ID Date Data Source [facility].[id number] 03/17/2020 07:06:00 AM EDT Health system Name Value Range Interpretation Description Data Sup [...] Jacomes in Serum or d">Calcium Medical Plasma </content>8.7 Center MG/DL<content styleCode="Zakia lics"> (8.4-10.2 MG/DL)</conten t> Glucose 74-106 Above high normal <content Saint [Mass/volume] styleCode="Mac [place] in Serum or d">Glucose Medical Plasma </content>119 Center MG/DL H<content styleCode="Zakia lics"> (74-106 MG/DL)</conten t> UNK > 60 <content [facility] styleCode="Mac [place] d">EGFR Medical </content>144 Center GFR<content styleCode="Zakia lics"> (> 60 GFR)</content> ID Date Data Source [id number] 03/17/2020 12:00:00 AM EDT [facility] Name Value Range Interpretation Code Description Data Pebbles rce(s) Supporting Document(s ) 2019-nCoV [facility] RNA XXX CHERRI+probe- Imp This lab was ordered by [facility] and reported by [facility]. ID Date Data Source [id number] 02/11/2020 02:59:00 PM EDT [facility] Name Value Range Interpretation Description Data Sup porting Code Source(s) Document(s ) SARS [facility] coronavirus 2 RNA This lab was ordered by [facility] Ac ct [facility] and reported by [facility]. ID Date Data Source [id number] 01/13/2020 11:43:00 PM EDT [facility] Name Value Range Interpretation Description Data Sup porting Code Source(s) Document(s ) SARS [facility] coronavirus 2 RNA This lab was ordered by Miguel vergara[facility] and reported by [facility]. ID Date Data Source [id number] 01/11/2020 11:30:00 AM EDT [facility] Name Value Range Interpretation Description Data Sup porting Code Source(s) Document(s ) SARS [facility] coronavirus 2 RNA This lab was ordered by [facility] and reported by [facility]. ID Date Data Source HematologyRou.[id number] 12/30/2019 11:00:00 PM EDT [facility] 0400 Name Value Range Interpretation [...] ics"> (8.0-11.0 FL)</content> ID Date Data Source GFR(Creatinine).[id number] 12/30/2019 11:00:00 PM EDT [facility] 0-0400 Name Value Range Interpretation Code Description Data Pebbles rce(s) Supporting Document(s ) UNK > 60 <content [facility] styleCode="Bold"> Medical Cent er EGFR </content>144 GFR<content styleCode="Italic s"> (> 60 GFR)</content> ID Date Data Source CHMROUTINECCDA.[id number] 12/30/2019 11:00:00 PM EDT [facility] -0400 Name Value Range Interpretation [...] (2.5-4.5 MG/DL)</conten t> ID Date Data Source [facility].[id number] 12/30/2019 11:00:00 PM EDT [facility] Medical Center Name Value Range Interpretation Description [...] (> 60 GFR)</content> ID Date Data Source HematologyRou.[id number] 12/25/2019 12:50:00 AM EDT [facility] 0400 Name Value Range Interpretation [...] (0.0 KCUMM)</content > ID Date Data Source GFR(Creatinine).[id number] 12/25/2019 12:50:00 AM EDT [facility] 0-0400 Name Value Range Interpretation Code Description Data Pebbles rce(s) Supporting Document(s ) UNK > 60 <content [facility] styleCode="Bold"> Medical Cent er EGFR </content>178 GFR<content styleCode="Italic s"> (> 60 GFR)</content> ID Date Data Source CardiacMarkers.[id number] 12/25/2019 12:50:00 AM EDT [facility] -0400 Name Value Range Interpretation Description Data Sup porting Code Source(s) Document(s ) Troponin < 0.034 <content [facility] styleCode="Bold [place] [Mass/volume ">Troponin I Medical ] in Serum </content>< Center or Plasma 0.012 NG/ML<content styleCode="Ital ics"> (< 0.034 NG/ML)</content > ID Date Data Source BMP.[id number] 12/25/2019 12:50:00 AM EDT Health system Name Value Range Interpretation Description Data Sup [...] (8.4-10.2 MG/DL)</conten t> ID Date Data Source HematologyRou.[id number] 12/03/2019 08:37:00 PM EDT [facility] 0400 Name Value Range Interpretation [...] ics"> (NORMAL )</content> ID Date Data Source GFR(Creatinine).[id number] 12/03/2019 08:37:00 PM EDT [facility] 0-0400 Name Value Range Interpretation Code Description Data Pebbles rce(s) Supporting Document(s ) UNK > 60 <content [facility] styleCode="Bold"> Medical Cent er EGFR </content>178 GFR<content styleCode="Italic s"> (> 60 GFR)</content> ID Date Data Source CHMROUTINECCDA.[id number] 12/03/2019 08:37:00 PM EDT [facility] -0400 Name Value Range Interpretation Description Data Sup porting Code Source(s) Document(s ) Magnesium 1.6-2.3 Below low normal <content [facility] [Mass/volume] styleCode="[facility] [place] in Serum or d">Magnesium Medical Plasma </content>1.5 Center MG/DL L<content styleCode="Zakia lics"> (1.6-2.3 MG/DL)</conten t> ID Date Data Source [facility].[id number] 12/03/2019 08:37:00 PM EDT [facility] Name Value Range [...] (> 60 GFR)</content> ID Date Data Source [id number] 11/27/2019 11:55:00 AM EDT [facility] Name Value Range Interpretation Description Data Sup porting Code Source(s) Document(s ) SARS [facility] CORONAVIRUS 2 RNA This lab was ordered by [facility] and reported by [facility]. ID Date Data Source Liver 11/25/2019 12:40:[address] [facility] Profile.[id number] Name Value Range Interpretation Description Data Sup [...] Range: not available)
ID Date Data Source HematologyRou.[id number] 11/25/2019 12:40:00 PM EDT [facility] 0400 Name Value Range Interpretation Description Data [...] ics"> (NORMAL )</content> ID Date Data Source GFR(Creatinine).[id number] 11/25/2019 12:40:00 PM EDT [facility] 0-0400 Name Value Range Interpretation Code Description Data Pebbles rce(s) Supporting Document(s ) UNK <content [facility] styleCode="Bold"> Medical Cent er EGFR </content>Test not performed. GFR (Reference Range: not available)
ID Date Data Source Coagulation 11/25/2019 12:40:00 PM [facility] Rout.[id number] EDT Name Value Range Interpretation Description Data [...] cs"> (25.1-36.5 SEC)</content> ID Date Data Source CHMROUTINECCDA.[id number] 11/25/2019 12:40:00 PM EDT [facility] -0400 Name Value Range Interpretation Description Data Sup porting Code Source(s) Document(s ) UNK <content [facility] styleCode="Bold Medical ">Globulin Center </content>Test not performed. G/DL (Reference Range: not available)
UNK <content [facility] styleCode="Bold Medical ">AG Ratio Center </content>Test not performed. (Reference Range: not available)
Protein <content [facility] [Mass/volume styleCode="Bold Medical ] in Serum ">Total Protein Center or Plasma </content>Test not performed. G/DL (Reference Range: not available)
ID Date Data Source CardiacMarkers.[id number] 11/25/2019 12:40:00 PM EDT [facility] -0400 Name Value Range Interpretation Description Data Sup porting Code Source(s) Document(s ) Troponin < 0.034 <content [facility] styleCode="Bold [place] [Mass/volume ">Troponin I Medical ] in Serum </content>< Center or Plasma 0.012 NG/ML<content styleCode="Ital ics"> (< 0.034 NG/ML)</content > ID Date Data Source BMP.[id number] 11/25/2019 12:40:00 PM EDT [facility] Name Value Range Interpretation Description Data [...] Range: not available)
ID Date Data Source [id number] 11/12/2019 10:10:00 AM EDT [facility] Name Value Range Interpretation Description Data Sup porting Code Source(s) Document(s ) SARS [facility] CORONAVIRUS 2 RNA This lab was ordered by [facility] and reported by [facility]. ID Date Data Source [id number] 10/06/2019 09:50:00 AM EDT [facility] Name Value Range Interpretation Code Description Data Pebbles rce(s) Supporting Document(s ) COV2 [facility] This lab was ordered by [facility] and reported by [facility] Rui. ID Date Data Source [id number] 09/21/2019 05:56:00 PM EDT [facility] Name Value Range Interpretation Description Data Sup porting Code Source(s) Document(s ) SARS [facility] CORONAVIRUS 2 RNA This lab was ordered by [facility] and reported by [facility]. ID Date Data Source Microbiology.[id number] 09/18/2019 06:20:00 AM EDT [facility] 400 Name Value Range Interpretation Code Description Data Pebbles rce(s) Supporting Document(s ) UNK <item><content [facility] styleCode="Bold"> Medical [facility] er Culture Status </content>
<t able><tbody><tr>< td>Specimen Number:</td><td>[id number]</td></tr ><tr><td>Sample Collection Date/Time: </td><td>09/18/2019 6:20 AM</td></tr><tr>< td>Specimen Source:</td><td>B LOOD</td></tr><tr ><td>Blood Culture:</td><td> Collection Plate Date: 09/18/2019 06:41 </td></tr><tr><td >Culture Report:</td><td>N O GROWTH AFTER 48 HOURS </td></tr><tr><td >Culture Status:</td><td>P reliminary </td></tr></tbody ></table></item> UNK <item><content [facility] styleCode="Bold"> Medical [facility] er Culture Report </content>
<t able><tbody><tr>< td>Specimen Number:</td><td>[id number]</td></tr ><tr><td>Sample Collection Date/Time: </td><td>09/18/2019 6:20 AM</td></tr><tr>< td>Specimen Source:</td><td>B LOOD</td></tr><tr ><td>Blood Culture:</td><td> Collection Plate Date: 09/18/2019 06:41 </td></tr><tr><td >Culture Status:</td><td>P reliminary </td></tr><tr><td >Culture Report:</td><td>N O GROWTH AFTER 48 HOURS </td></tr></tbody ></table></item> ID Date Data Source Microbiology.[id number] 09/18/2019 06:05:00 AM EDT [facility] 400 Name Value Range Interpretation Code Description Data Pebbles rce(s) Supporting Document(s ) UNK <item><content [facility] styleCode="Bold"> Medical [facility] er Culture Report </content>
<t able><tbody><tr>< td>Specimen Number:</td><td>[id number]</td></tr ><tr><td>Sample Collection Date/Time: </td><td>09/18/2019 6:05 AM</td></tr><tr>< td>Specimen Source:</td><td>B LOOD</td></tr><tr ><td>Blood Culture:</td><td> Collection Plate Date: 09/18/2019 06:41 </td></tr><tr><td >Culture Status:</td><td>P reliminary </td></tr><tr><td >Culture Report:</td><td>N O GROWTH AFTER 48 HOURS </td></tr></tbody ></table></item> UNK <item><content [facility] styleCode="Bold"> Medical [facility] er Culture Status </content>
<t able><tbody><tr>< td>Specimen Number:</td><td>[id number]</td></tr ><tr><td>Sample Collection Date/Time: </td><td>09/18/2019 6:05 AM</td></tr><tr>< td>Specimen Source:</td><td>B LOOD</td></tr><tr ><td>Culture Report:</td><td>N O GROWTH AFTER 48 HOURS </td></tr><tr><td >Culture Status:</td><td>P reliminary </td></tr><tr><td >Blood Culture:</td><td> Collection Plate Date: 09/18/2019 06:41 </td></tr></tbody ></table></item> ID Date Data Source HematologyRou.[id number] 09/17/2019 11:54:00 PM EDT [facility] 0400 Name Value Range Interpretation Code Description Data Supporting Source(s) Document(s ) UNK 0.5-1.5 Below low normal <content [facility] styleCode="Bold"> Medical Retic % Center </content>0.40 % L<content styleCode="Italic s"> (0.5-1.5 %)</content> UNK 0.018-0.1 Below low normal <content [facility] styleCode="Bold"> Medical Reticulocyte Center Absolute Count </content>0.0148 MCUMM L<content styleCode="Italic s"> (0.018-0.1 MCUMM)</content> UNK 9.3-17.4 <content [facility] styleCode="Bold"> Medical Immature [place] Reticulocyte Fraction </content>15.9 %<content styleCode="Italic s"> (9.3-17.4 %)</content> UNK 30.0-38.0 Below low normal <content [facility] styleCode="Bold"> Medical Reticulocyte Center Hemoglobin Equivalent </content>19.5 PG L<content styleCode="Italic s"> (30.0-38.0 PG)</content> ID Date Data Source HematologyRou.[id number] 09/17/2019 11:42:00 PM EDT [facility] 0400 Name Value Range Interpretation Description Data [...] low normal <content [facility] [Volume 0 styleCode="Bold [facility] Fraction] of ">Hematocrit Medical Blood by </content>28.3 Center Automated count % L<content styleCode="Ital ics"> (41.0-53.0 %)</content> Erythrocyte 11.5-14. Above high <content [facility] distribution 5 normal styleCode="Bold [facility] width [Ratio] by ">Red Cell Medical Automated count Distribution Center Width </content>19.9 % H<content styleCode="Ital ics"> (11.5-14.5 %)</content> Erythrocyte mean 80.0-100 <content [facility] corpuscular .0 styleCode="Bold [facility] volume [Entitic ">Mean Medical volume] by Corpuscular [...] ics"> (8.0-11.0 FL)</content> ID Date Data Source GFR(Creatinine).[id number] 09/17/2019 11:42:00 PM EDT [facility] 0-0400 Name Value Range Interpretation Code Description Data Pebbles rce(s) Supporting Document(s ) UNK > 60 <content [facility] styleCode="Bold"> Medical Cent er EGFR </content>144 GFR<content styleCode="Italic s"> (> 60 GFR)</content> ID Date Data Source ChemistrySpecia.[id number] 09/17/2019 11:42:00 PM EDT [facility] 0-0400 Name Value Range Interpretation [...] (239-931 PG/ML)</conten t> ID Date Data Source CHMROUTINECCDA.[id number] 09/17/2019 11:42:00 PM EDT [facility] -0400 Name Value Range Interpretation [...] (2.5-4.5 MG/DL)</conten t> ID Date Data Source CardiacMarkers.[id number] 09/17/2019 11:42:00 PM EDT [facility] -0400 Name Value Range Interpretation Description Data Sup porting Code Source(s) Document(s ) Troponin < 0.034 <content [facility] styleCode="[facility] [place] [Mass/volume ">Troponin I Medical ] in Serum </content>0.024 Center or Plasma NG/ML<content styleCode="Ital ics"> (< 0.034 NG/ML)</content > ID Date Data Source BMP.[id number] 09/17/2019 11:42:00 PM EDT Health system Name Value Range Interpretation Description Data Sup [...] Data Source Liver 09/06/2019 03:21:[address] [facility] Profile.[id number] Name Value Range Interpretation Description Data Sup [...] s"> (0.2-1.3 MG/DL)</content> ID Date Data Source HematologyRou.[id number] 09/06/2019 03:21:00 AM EDT [facility] 0400 Name Value Range Interpretation Description Data [...] ics"> (0 /100)</content> ID Date Data Source GFR(Creatinine).[id number] 09/06/2019 03:21:00 AM EDT [facility] 0-0400 Name Value Range Interpretation Code Description Data Pebbles rce(s) Supporting Document(s ) UNK > 60 <content [facility] styleCode="Bold"> Medical Cent er EGFR </content>230 GFR<content styleCode="Italic s"> (> 60 GFR)</content> ID Date Data Source CHMROUTINECCDA.[id number] 09/06/2019 03:21:00 AM EDT [facility] -0400 Name Value Range Interpretation [...] (2.5-4.5 MG/DL)</conten t> ID Date Data Source [facility].[id number] 09/06/2019 03:21:00 AM EDT [facility] Name Value Range Interpretation Description Data Sup porting Code Source(s) Document(s ) Potassium 3.5-5.3 Below lower <content [facility] [Moles/volume] in panic limits styleCode="Bold"> J osephs Serum or Plasma Potassium Medical </content><conten Center t styleCode="Bold"> 2.9 MEQ/L LL</content><cont ent styleCode="Italic s"> (3.5-5.3 MEQ/L)</content> Sodium 137-145 Below low <content [facility] [Moles/volume] in normal styleCode="Bold"> [facility] Serum or Plasma Sodium Medical </content>134 Center MEQ/L L<content styleCode="Italic s"> (137-145 MEQ/L)</content> Chloride 98-107 Below low <content [facility] [Moles/volume] in normal styleCode="Bold"> [facility] Serum or Plasma Chloride Medical </content>95 Center [...] s"> (3.5-5.0 G/DL)</content> ID Date Data Source CHMROUTINECCDA.[id number] 09/05/2019 10:28:00 AM EDT [facility] -0400 Name Value Range Interpretation Description Data Sup porting Code Source(s) Document(s ) Lactate 0.7-2.0 <content [facility] [Mass/volum styleCode="Bold Medical e] in Serum ">Lactic Acid Center or Plasma </content>1.9 MMOLL<content styleCode="Ital ics"> (0.7-2.0 MMOLL)</content > ID Date Data Source [id number] 09/05/2019 10:24:00 AM EDT [facility] Name Value Range Interpretation Code Description Data Pebbles rce(s) Supporting Document(s ) RESULT [facility] This lab was ordered by [facility] and reported by [facility]. ID Date Data Source Microbiology.[id number] 09/05/2019 10:17:00 AM EDT [facility] 400 Name Value Range Interpretation Code Description Data Pebbles rce(s) Supporting Document(s ) UNK <item><content [facility] styleCode="Bold"> Medical Cent er Culture Status </content>
<t able><tbody><tr>< td>Specimen Number:</td><td>[id number]</td></tr ><tr><td>Sample Collection Date/Time: </td><td> 0 10:17 AM</td></tr><tr>< td>Specimen Source:</td><td>B LOOD</td></tr><tr ><td>Blood Culture:</td><td> Collection Plate Date: 09/05/2019 10:23 </td></tr><tr><td >Culture Status:</td><td>P reliminary </td></tr><tr><td >Culture Report:</td><td>C ulture in progress </td></tr><tr><td >Gram Stain:</td><td>GR AM POSITIVE COCCI IN CLUSTERS NOTIFIED WITH READ-BACK KERVIN ROLLE RN </td></tr></tbody ></table></item> UNK <item><content [facility] styleCode="Bold"> Medical [facility] er Culture Report </content>
<t able><tbody><tr>< td>Specimen Number:</td><td>[id number]</td></tr ><tr><td>Sample Collection Date/Time: </td><td> 0 10:17 AM</td></tr><tr>< td>Specimen Source:</td><td>B LOOD</td></tr><tr ><td>Gram Stain:</td><td>GR AM POSITIVE COCCI IN CLUSTERS NOTIFIED WITH READ-BACK KERVIN ROLLE RN </td></tr><tr><td >Culture Report:</td><td>C ulture in progress </td></tr><tr><td >Culture Status:</td><td>P reliminary </td></tr><tr><td >Blood Culture:</td><td> Collection Plate Date: 09/05/2019 10:23 </td></tr></tbody ></table></item> ID Date Data Source Microbiology.[id number] 09/05/2019 10:16:00 AM EDT [facility] 400 Name Value Range Interpretation Code Description Data Pebbles rce(s) Supporting Document(s ) UNK <item><content [facility] styleCode="Bold"> Medical [facility] er Culture Report </content>
<t able><tbody><tr>< td>Specimen Number:</td><td>[id number]</td></tr ><tr><td>Sample Collection Date/Time: </td><td> 0 10:16 AM</td></tr><tr>< td>Specimen Source:</td><td>B LOOD</td></tr><tr ><td>Blood Culture:</td><td> Collection Plate Date: 09/05/2019 10:24 </td></tr><tr><td >Culture Status:</td><td>P reliminary </td></tr><tr><td >Culture Report:</td><td>C ulture in progress </td></tr></tbody ></table></item> UNK <item><content [facility] styleCode="Bold"> Medical [facility] er Culture Status </content>
<t able><tbody><tr>< td>Specimen Number:</td><td>[id number]</td></tr ><tr><td>Sample Collection Date/Time: </td><td> 0 10:16 AM</td></tr><tr>< td>Specimen Source:</td><td>B LOOD</td></tr><tr ><td>Culture Report:</td><td>C ulture in progress </td></tr><tr><td >Culture Status:</td><td>P reliminary </td></tr><tr><td >Blood Culture:</td><td> Collection Plate Date: 09/05/2019 10:24 </td></tr></tbody ></table></item> ID Date Data Source Liver 09/05/2019 10:16:[address] [facility] Profile.[id number] Name Value Range Interpretation Description Data Sup [...] s"> (0.2-1.3 MG/DL)</content> ID Date Data Source HematologyRou.[id number] 09/05/2019 10:16:00 AM EDT [facility] 0400 Name Value Range Interpretation Description Data Sup porting Code Source(s) Document(s ) Hemoglobin 13.5-17. Below low normal <content [facility] [Mass/volume] in 5 styleCode="Bold [place] Blood ">Hemoglobin Medical </content>8.4 Center G/DL L<content styleCode="Ital ics"> (13.5-17.5 G/DL)</content> Erythrocytes 4.4-5.9 Below low normal <content [facility] [#/volume] in styleCode="Bold [facility] Blood by ">Red Blood Medical Automated count Cell Count Center </content>3.62 MCUMM L<content styleCode="Ital ics"> (4.4-5.9 MCUMM)</content > Leukocytes 4.4-11.0 <content [facility] [#/volume] in styleCode="Bold [facility] Blood by ">White Blood Medical Automated count Cell Count Center </content>6.06 KCUMM<content styleCode="Ital ics"> (4.4-11.0 KCUMM)</content > Hematocrit 41.0-53. Below low normal <content [facility] [Volume 0 styleCode="Bold [facility] Fraction] of ">Hematocrit Medical Blood by </content>28.4 [...] ics"> (NORMAL )</content> ID Date Data Source GFR(Creatinine).[id number] 09/05/2019 10:16:00 AM EDT [facility] 0-0400 Name Value Range Interpretation Code Description Data Pebbles rce(s) Supporting Document(s ) UNK > 60 <content [facility] styleCode="Bold"> Medical Cent er EGFR </content>178 GFR<content styleCode="Italic s"> (> 60 GFR)</content> ID Date Data Source CHMROUTINECCDA.[id number] 09/05/2019 10:16:00 AM EDT [facility] -0400 Name Value Range Interpretation Description Data Sup porting Code Source(s) Document(s ) UNK 2.3-3.5 <content [facility] styleCode="Bold Medical ">Globulin Center </content>2.6 G/DL<content styleCode="Ital ics"> (2.3-3.5 G/DL)</content> UNK >= 1.0 <content [facility] styleCode="Bold Medical ">AG Ratio Center </content>1.3 <content styleCode="Ital ics"> (>= 1.0 )</content> Protein 6.3-8.2 Below low normal <content [facility] [Mass/volum styleCode="Bold Medical e] in Serum ">Total Protein Center or Plasma </content>6.0 G/DL L<content styleCode="Ital ics"> (6.3-8.2 G/DL)</content> ID Date Data Source [facility].[id number] 09/05/2019 10:16:00 AM EDT Health system Name Value Range Interpretation Description Data Sup porting Code Source(s) Document(s ) Sodium 137-145 <content [facility] [Moles/volume] in styleCode="Bold"> [facility] Serum or Plasma Sodium Medical </content>141 Center MEQ/L<content styleCode="Italic s"> (137-145 MEQ/L)</content> Potassium 3.5-5.3 Below low <content [facility] [Moles/volume] in normal styleCode="Bold"> [facility] Serum or Plasma Potassium Medical </content>3.2 Center [...] Data Source Liver 08/10/2019 01:50:[address] [facility] Profile.[id number] Name Value Range Interpretation Description Data Sup [...] s"> (3.5-5.0 G/DL)</content> ID Date Data Source HematologyRou.[id number] 08/10/2019 01:50:00 AM [place] [facility] 0500 Name Value Range Interpretation Description Data Sup porting Code Source(s) Document(s ) Hematocrit 41.0-53. Below low normal <content [facility] [Volume 0 styleCode="Bold [facility] Fraction] of ">Hematocrit Medical Blood by </content>27.8 [...] ics"> (0 /100)</content> ID Date Data Source GFR(Creatinine).[id number] 08/10/2019 01:50:00 AM EST [facility] 0-0500 Name Value Range Interpretation Code Description Data Pebbles rce(s) Supporting Document(s ) UNK > 60 <content [facility] styleCode="Bold"> Medical Cent er EGFR </content>144 GFR<content styleCode="Italic s"> (> 60 GFR)</content> ID Date Data Source BMP.[id number] 08/10/2019 01:50:00 AM EST [facility] Name Value Range Interpretation Description [...] s"> (3.5-5.0 G/DL)</content> Alkaline 38-126 <content [facility] phosphatase styleCode="Bold"> [place] [Enzymatic Alkaline Medical activity/volume] Phosphatase (ALP) Cente r in Serum or Plasma </content>78 IU/L<content styleCode="Italic s"> (38-126 IU/L)</content> ID Date Data Source Urinalysis.[id number] 08/09/2019 08:03:00 AM [place] [facility] 0 Name Value Range Interpretation Description Data [...] by Test d">Urine Medical strip Specific Center [place] </content>1.01 0 L<content styleCode="Zakia lics"> (1.015-1.025 )</content> Urobilinogen 0.2-1.0 <content [facility] [Units/volume] styleCode="[facility] in Urine by d">Urine Medical Test strip Urobilinogen Center </content>0.2 MG/DL<content styleCode="Zakia lics"> (0.2-1.0 MG/DL)</conten t> Protein NEGATIVE <content [facility] [Mass/volume] styleCode="Mac [place] in Urine by d">Urine Medical Test strip [...] (NEGATIVE )</content> Leukocyte NEGATIVE <content [facility] esterase styleCode="[facility] [Presence] in d">Urine Medical Urine by Test Leukocyte Center strip </content>NEGA TIVE <content styleCode="Zakia lics"> (NEGATIVE )</content> ID Date Data Source Liver 08/09/2019 08:03:[address] [facility] Profile.[id number] Name Value Range Interpretation Description Data Sup [...] s"> (0.2-1.3 MG/DL)</content> ID Date Data Source HematologyRou.[id number] 08/09/2019 08:03:00 AM [place] [facility] 0500 Name Value Range Interpretation Description Data [...] low normal <content [facility] corpuscular 0 styleCode="Bold [facility] hemoglobin ">Mean Medical [Entitic mass] Corposcular Center by Automated Hemoglobin count </content>23.8 PG L<content styleCode="Ital ics"> (26.0-34.0 PG)</content> Platelets 130-400 <content [facility] [#/volume] in styleCode="Bold [place] Blood by ">Platelet Medical Automated count Count Center </content>252 KCUMM<content styleCode="Ital ics"> (130-400 KCUMM)</content > Erythrocyte 11.5-14. Above high <content [facility] distribution 5 normal styleCode="[facility] width [Ratio] by ">Red Cell Medical [...] ics"> (0 /100)</content> ID Date Data Source GFR(Creatinine).[id number] 08/09/2019 08:03:00 AM EST [facility] 0-0500 Name Value Range Interpretation Code Description Data Pebbles rce(s) Supporting Document(s ) UNK > 60 <content [facility] styleCode="Bold"> Medical Cent er EGFR </content>178 GFR<content styleCode="Italic s"> (> 60 GFR)</content> ID Date Data Source CHMROUTINECCDA.[id number] 08/09/2019 08:03:00 AM EST [facility] -0500 Name Value Range Interpretation Description Data Sup porting Code Source(s) Document(s ) UNK 30-110 <content [facility] styleCode="Bold Medical ">Amylase Center </content>35 IU/L<content styleCode="Ital ics"> (30-110 IU/L)</content> Lipase 23-300 Below low normal <content [facility] [Enzymatic styleCode="Bold Medical activity/vo ">Lipase Center lume] in </content>19 Serum or IU/L L<content Plasma styleCode="Ital ics"> (23-300 IU/L)</content> ID Date Data Source [facility].[id number] 08/09/2019 08:03:00 AM EST Health system Name Value Range Interpretation Description Data Sup [...] Data Source Liver 07/28/2019 06:25:[address] [facility] Profile.[id number] Name Value Range Interpretation Description Data Sup [...] IU/L)</content> Alkaline 38-126 <content [facility] phosphatase styleCode="Bold"> [facility] [Enzymatic Alkaline Medical activity/volume] Phosphatase (ALP) Cente [...] s"> (0.0-0.3 MG/DL)</content> ID Date Data Source HematologyRou.[id number] 07/28/2019 06:25:00 AM MO Rafael nt [facility] 0500 Name Value Range Interpretation Description [...] ics"> (8.0-11.0 [place])</content> ID Date Data Source GFR(Creatinine).[id number] 07/28/2019 06:25:00 AM [facility] 0-0500 Name Value Range Interpretation Code Description Data Pebbles rce(s) Supporting Document(s ) UNK > 60 <content [facility] styleCode="Bold"> Medical Cent er EGFR </content>178 GFR<content styleCode="Italic s"> (> 60 GFR)</content> ID Date Data Source CardiacMarkers.[id number] 07/28/2019 06:25:00 AM [facility] -0500 Name Value Range Interpretation Description Data Sup porting Code Source(s) Document(s ) Troponin < 0.034 <content [facility] I.cardiac styleCode="Bold [place] [Mass/volume ">Troponin I Medical ] in Serum </content>< Center or Plasma 0.012 NG/ML<content styleCode="Ital ics"> (< 0.034 NG/ML)</content > ID Date Data Source [facility].[id number] 07/28/2019 06:25:00 AM [facility] Name Value Range Interpretation Description [...] Data Source Liver 05/13/2019 11:52:[address] [facility] Profile.[id number] Name Value Range Interpretation Description Data Sup [...] IU/L)</content> Alkaline 38-126 <content [facility] phosphatase styleCode="Bold"> [facility] [Enzymatic Alkaline Medical activity/volume] Phosphatase (ALP) Cente [...] s"> (3.5-5.0 G/DL)</content> ID Date Data Source HematologyRou.[id number] 05/13/2019 11:52:00 AM [facility] 0500 Name Value Range Interpretation Description Data [...] mean 80.0-100 <content [facility] corpuscular .0 styleCode="Bold [facility] volume [Entitic ">Mean Medical volume] by Corpuscular [...] (0.0 KCUMM)</content > ID Date Data Source GFR(Creatinine).[id number] 05/13/2019 11:52:00 AM [facility] 0-0500 Name Value Range Interpretation Code Description Data Pebbles rce(s) Supporting Document(s ) UNK > 60 <content [facility] styleCode="Bold"> Medical Cent er EGFR </content>178 GFR<content styleCode="Italic s"> (> 60 GFR)</content> ID Date Data Source CHMROUTINECCDA.[id number] 05/13/2019 11:52:00 AM [facility] -0500 Name Value Range Interpretation [...] G/DL)</content > Phosphate 2.5-4.5 <content [facility] [Mass/volume] styleCode="aMc [place] in Serum or d">Phosphorus Medical Plasma </content>3.7 Center MG/DL<content styleCode="Zakia lics"> (2.5-4.5 MG/DL)</conten t> ID Date Data Source [facility].[id number] 05/13/2019 11:52:00 AM EST [facility] Name Value Range Interpretation Description [...] s"> (38-126 IU/L)</content> ID Date Data Source HematologyRou.[id number] 05/10/2019 05:50:00 AM [facility] 0500 Name Value Range Interpretation Description Data [...] (0.0 KCUMM)</content > ID Date Data Source GFR(Creatinine).[id number] 05/10/2019 05:50:00 AM [facility] 0-0500 Name Value Range Interpretation Code Description Data Pebbles rce(s) Supporting Document(s ) UNK > 60 <content [facility] styleCode="Bold"> Medical Cent er EGFR </content>178 GFR<content styleCode="Italic s"> (> 60 GFR)</content> ID Date Data Source CHMROUTINECCDA.[id number] 05/10/2019 05:50:00 AM [facility] -0500 Name Value Range Interpretation [...] (1.6-2.3 MG/DL)</conten t> ID Date Data Source [facility].[id number] 05/10/2019 05:50:00 AM [facility] Name Value Range Interpretation Description [...] MG/DL)</conten t> Glucose 74-106 <content [facility] [Mass/volume] styleCode="aMc [facility] in Serum or d">Glucose Medical Plasma </content>95 [...] Data Source Liver 05/09/2019 12:46:[address] [facility] Profile.[id number] Name Value Range Interpretation Description Data Sup [...] s"> (3.5-5.0 G/DL)</content> ID Date Data Source GFR(Creatinine).[id number] 05/09/2019 12:46:00 PM EST Rafael nt [facility] 0-0500 Name Value Range Interpretation Code Description Data Pebbles rce(s) Supporting Document(s ) UNK > 60 <content [facility] styleCode="Bold"> Medical Cent er EGFR </content>178 GFR<content styleCode="Italic s"> (> 60 GFR)</content> ID Date Data Source CHMROUTINECCDA.[id number] 05/09/2019 12:46:00 PM EST Rafael nt [facility] -0500 Name Value Range Interpretation Description Data Sup porting Code Source(s) Document(s ) UNK >= 1.0 <content [facility] styleCode="Mac Jacomes d">AG Ratio Medical </content>1.1 Center <content styleCode="Zakia [...] Jacomes in Serum or d">Phosphorus Medical Plasma </content>3.5 Center MG/DL<content styleCode="Zakia lics"> (2.5-4.5 MG/DL)</conten t> ID Date Data Source [facility].[id number] 05/09/2019 12:46:00 PM MO Yepez [facility] Name Value Range [...] IU/L)</content> Alkaline 38-126 <content [facility] phosphatase styleCode="Bold"> [facility] [Enzymatic Alkaline Medical activity/volume] Phosphatase (ALP) Cente [...] Data Source Liver 05/08/2019 07:35:[address] [facility] Profile.[id number] Name Value Range Interpretation Description Data Sup [...] s"> (3.5-5.0 G/DL)</content> ID Date Data Source LIPID.[id number] 05/08/2019 07:35:00 AM EST [facility] Name Value Range Interpretation Description [...] < 100 <content [facility] styleCode="[facility] [place] d">LDL-Cholest [facility] Center </content>74 MG/DL<content styleCode="Zakia lics"> (< 100 MG/DL)</conten t> ID Date Data Source HematologyRou.[id number] 05/08/2019 07:35:00 AM [facility] nt [facility] 0500 Name Value Range Interpretation Description [...] (0.0 KCUMM)</content > ID Date Data Source GFR(Creatinine).[id number] 05/08/2019 07:35:00 AM [facility] 0-0500 Name Value Range Interpretation Code Description Data Pebbles rce(s) Supporting Document(s ) UNK > 60 <content [facility] styleCode="Bold"> Medical Cent er EGFR </content>178 GFR<content styleCode="Italic s"> (> 60 GFR)</content> ID Date Data Source MRMARLENE.[id number] 05/08/2019 07:35:00 AM [facility] -0500 Name Value Range Interpretation [...] (1.6-2.3 MG/DL)</conten t> ID Date Data Source [id number] 05/08/2019 07:35:00 AM [facility] Name Value Range Interpretation Description [...] s"> (8.4-10.2 MG/DL)</content> Aspartate 17-59 <content [facility] aminotransferase styleCode="Bold"> [facility] [Enzymatic Aspartate Medical activity/volume] Aminotransferase Center in Serum or Plasma (AST) </content>29 IU/L<content styleCode="Italic s"> (17-59 IU/L)</content> Alanine 7-50 <content [facility] aminotransferase styleCode="Bold"> [facility] [Enzymatic Alanine Medical activity/volume] Aminotransferase Center in Serum or Plasma (ALT) </content>14 IU/L<content styleCode="Italic s"> (7-50 IU/L)</content> Alkaline 38-126 <content [facility] phosphatase styleCode="Bold"> [facility] [Enzymatic Alkaline Medical activity/volume] Phosphatase (ALP) Cente [...] s"> (3.5-5.0 G/DL)</content> ID Date Data Source Urinalysis.[id number] 05/07/2019 04:00:00 PM [facility] 0 Name Value Range Interpretation Description Data Sup porting Code Source(s) Document(s ) Color of Urine YELLOW <content [facility] styleCode="Mac Jacomes d">Color, Medical Urine Center </content>AMBE R <content [...] by Test d">Urine Medical strip Specific Center [place] </content>1.01 0 L<content styleCode="Zakia lics"> (1.015-1.025 )</content> [...] (NONE SEEN HPF)</content> ID Date Data Source CHMROUTINECCDA.[id number] 05/07/2019 04:00:00 PM MO dalal [facility] -0500 Name Value Range Interpretation Description Data Sup porting Code Source(s) Document(s ) Cannabinoids <content Saint [Presence] in styleCode="Mac [facility] Urine by Screen d">Cannabinoid Medical method >50 ng/mL s Center </content>NEGA TIVE NG/ML (Reference Range: not available)<br/ > ID Date Data Source Liver 05/07/2019 02:18:00 PM [facility] Profile.[id number] Name Value Range Interpretation Description Data Sup [...] s"> (3.5-5.0 G/DL)</content> ID Date Data Source GFR(Creatinine).[id number] 05/07/2019 02:18:00 PM EST Rafael dalal [facility] 0-0500 Name Value Range Interpretation Code Description Data Pebbles rce(s) Supporting Document(s ) UNK > 60 <content [facility] styleCode="Bold"> Medical Cent er EGFR </content>178 GFR<content styleCode="Italic s"> (> 60 GFR)</content> ID Date Data Source BMP.[id number] 05/07/2019 02:18:00 PM EST [facility] Name Value Range Interpretation Description Data [...] s"> (3.5-5.0 G/DL)</content> ID Date Data Source CHMROUTINECCDA.[id number] 05/07/2019 02:18:00 PM [facility] -0500 Name Value Range Interpretation Description Data Sup porting Code Source(s) Document(s ) UNK 2.3-3.5 <content [facility] styleCode="Bold Medical ">Globulin Center </content>2.9 G/DL<content styleCode="Ital ics"> (2.3-3.5 G/DL)</content> UNK >= 1.0 <content [facility] styleCode="Bold Medical ">AG Ratio Center </content>1.1 <content styleCode="Ital ics"> (>= 1.0 )</content> Protein 6.3-8.2 Below low normal <content [facility] [Mass/volum styleCode="Bold Medical e] in Serum ">Total Protein Center or Plasma </content>6.2 G/DL L<content styleCode="Ital ics"> (6.3-8.2 G/DL)</content> ID Date Data Source GFR(Creatinine).[id number] 05/07/2019 12:50:00 PM [facility] 0-0500 Name Value Range Interpretation Code Description Data Pebbles rce(s) Supporting Document(s ) UNK <content [facility] styleCode="Bold"> Medical Cent er EGFR </content>Test not performed. GFR (Reference Range: not available)
ID Date Data Source [facility].[id number] 05/07/2019 12:50:00 PM [facility] Name Value Range Interpretation Description [...] Data Source Liver 05/07/2019 10:05:[address] [facility] Profile.[id number] Name Value Range Interpretation Description Data Sup [...] Range: not available)
ID Date Data Source HematologyRou.[id number] 05/07/2019 10:05:00 AM [facility] 0500 Name Value Range Interpretation Description Data [...] (0.0 KCUMM)</content > ID Date Data Source GFR(Creatinine).[id number] 05/07/2019 10:05:00 AM EST Rafael katlin [facility] 0-0500 Name Value Range Interpretation Code Description Data Pebbles rce(s) Supporting Document(s ) UNK <content [facility] styleCode="Bold"> Medical Cent er EGFR </content>Test not performed. GFR (Reference Range: not available)
ID Date Data Source BMP.[id number] 05/07/2019 10:05:00 AM EST Health system Name Value Range Interpretation Description Data Sup [...] Data Source Liver 02/19/2019 05:25:[address] [facility] Profile.[id number] Name Value Range Interpretation Description Data Sup [...] s"> (0.2-1.3 MG/DL)</content> ID Date Data Source HematologyRou.[id number] 02/19/2019 05:25:00 PM EDT Rafael dalal [facility] 0400 Name Value Range Interpretation Description Data Sup porting Code Source(s) Document(s ) Leukocytes 4.4-11.0 <content [facility] [#/volume] in styleCode="Bold [facility] Blood by ">White Blood Medical Automated count [...] high <content [facility] distribution 5 normal styleCode="Bold [facility] width [Ratio] by ">Red Cell Medical Automated count Distribution Center Width </content>19.9 % H<content styleCode="Ital ics"> (11.5-14.5 %)</content> Platelets 130-400 <content [facility] [#/volume] in styleCode="Bold [place] Blood by ">Platelet Medical Automated count Count Center </content>175 KCUMM<content styleCode="Ital ics"> (130-400 KCUMM)</content > ID Date Data Source GFR(Creatinine).[id number] 02/19/2019 05:25:00 PM EDT [facility] 0-0400 Name Value Range Interpretation Code Description Data Pebbles rce(s) Supporting Document(s ) UNK > 60 <content [facility] styleCode="Bold"> Medical Cent er EGFR </content>144 GFR<content styleCode="Italic s"> (> 60 GFR)</content> ID Date Data Source [facility].[id number] 02/19/2019 05:25:00 PM EDT Health system Name Value Range Interpretation Description Data Sup porting Code Source(s) Document(s ) Sodium 137-145 <content [facility] [Moles/volume] in styleCode="Bold"> [facility] Serum or Plasma Sodium Medical </content>145 Center MEQ/L<content styleCode="Italic s"> (137-145 MEQ/L)</content> Potassium <content [facility] [Moles/volume] in styleCode="Bold"> [facility] Serum or Plasma Potassium Medical [...] <content [facility] [Moles/volume] in styleCode="Bold"> [facility] Serum or Plasma Chloride Medical </content>101 Center [...] Value Status Description Data Source(s ) Smoking 04/04/2020 Former Smoker completed Former Smoker [facility] 03:17:00 AM EDT Medical C enter Smoking 04/03/2020 Former Smoker completed Former Smoker [facility] 09:30:00 PM EDT Medical C enter Smoking 04/03/2020 Former Smoker completed Former Smoker [facility] 09:23:00 PM EDT Medical C enter Smoking 04/02/2020 Former Smoker completed Former Smoker [facility] 09:11:00 PM EDT Medical C enter Smoking 04/02/2020 Former Smoker completed Former Smoker [facility] 08:09:00 PM EDT Medical C enter Smoking 04/02/2020 Former Smoker completed Former Smoker [facility] 07:29:00 PM EDT Medical C enter Smoking 04/01/2020 [...] Former Smoker completed Former Smoker [facility] 12:40:00 PM EDT Medical C [...] Smoking 01/19/2020 Former Smoker completed Former Smoker [facility] 11:17:00 AM EDT Medical C enter Smoking 01/18/2020 Former Smoker completed Former Smoker [facility] 10:20:00 PM EDT Medical C enter Smoking 01/18/2020 Former Smoker completed Former Smoker [facility] 10:02:00 PM EDT Medical C enter Smoking 01/18/2020 Former Smoker completed Former Smoker [facility] 09:47:00 PM EDT Medical C enter [...] 11/10/2019 Former Smoker completed Former Smoker [facility] 04:29:00 PM EDT Medical C enter Smoking 11/08/2019 Former Smoker completed Former Smoker [facility] 08:01:00 PM EDT Medical C enter [...] 10/15/2019 Former Smoker completed Former Smoker [facility] 01:28:00 PM EDT Medical C enter [...] 10/12/2019 Former Smoker completed Former Smoker [facility] 12:53:00 AM EDT Medical C enter Smoking 10/12/2019 Former Smoker completed Former Smoker [facility] 12:49:00 AM EDT Medical C enter Smoking 10/11/2019 Former Smoker completed Former Smoker [facility] 02:50:00 PM EDT Medical C enter Smoking 10/11/2019 Former Smoker completed Former Smoker [facility] 02:44:00 PM EDT Medical C enter [...] Ever completed Denies Ever Smoked [facility] 06:49:00 PM EST Smoked Medical C enter [...] Ever completed Denies Ever Smoked [facility] 12:06:00 PM EST Smoked Medical C enter [...] 06:37:00 PM EDT Smoked Medical C enter Vital Signs ID Date Data Source UNK Name Value Range Interpretation Code Description Data Source(s) Body temperature 37.337607 Kaylie 37.262747 Kaylie [facility] Respiratory rate 18 /min 18 /min [facility] 95 % 95 % [facility] saturation in Medical Arterial blood Center by Pulse oximetry Heart rate 90 /min 90 /min [facility] Diastolic blood 80 mm[Hg] 80 mm[Hg] [facility] Systolic blood 133 mm[Hg] 133 mm[Hg] [facility] Body temperature 37.617979 Kaylie 37.776294 Kaylie [facility] Respiratory rate 16 /min 16 /min [facility] 95 % 95 % [facility] saturation in Medical Arterial blood Center by Pulse oximetry Heart rate 88 /min 88 /min [facility] Diastolic blood 67 mm[Hg] 67 mm[Hg] [facility] Systolic blood 123 mm[Hg] 123 mm[Hg] [facility] Body temperature 36.828142 Kaylie 36.126320 Kaylie [facility] Respiratory rate 18 /min 18 /min [facility] 93 % 93 % [facility] saturation in Medical Arterial blood Center by Pulse oximetry Heart rate 87 /min 87 /min [facility] Diastolic blood 70 mm[Hg] 70 mm[Hg] [facility] Systolic blood 126 mm[Hg] 126 mm[Hg] [facility] Body weight 108.774657 kg 108.494986 kg [facility] Body temperature 36.132981 Kaylie 36.960517 Kaylie [facility] Respiratory rate 18 /min 18 /min [facility] 98 % 98 % [facility] saturation in Medical Arterial blood Center by Pulse oximetry Heart rate 91 /min 91 /min [facility] Body height 175.396696 cm 175.665689 cm [facility] Diastolic blood 89 mm[Hg] 89 mm[Hg] [facility] Systolic blood 125 mm[Hg] 125 mm[Hg] [facility] Body mass index 35.4 kg/m2 35.4 kg/m2 [facility] (BMI) [Ratio] Medical Center Body weight 125.727398 kg 125.831366 kg [facility] Body temperature 36.297211 Kaylie 36.434524 Kaylie [facility] Respiratory rate 18 /min 18 /min [facility] 98 % 98 % [facility] saturation in Medical Arterial blood Center by Pulse oximetry Heart rate 82 /min 82 /min [facility] Body height 185.348365 cm 185.909992 cm [facility] Diastolic blood 78 mm[Hg] 78 mm[Hg] [facility] Systolic blood 134 mm[Hg] 134 mm[Hg] [facility] Body mass index 36.3 kg/m2 36.3 kg/m2 [facility] (BMI) [Ratio] Medical Center Body weight 110.146392 kg 110.689518 kg [facility] Body temperature 36.230139 Kaylie 36.039642 Kaylie [facility] Respiratory rate 18 /min 18 /min [facility] 98 % 98 % [facility] saturation in Medical Arterial blood Center by Pulse oximetry Heart rate 74 /min 74 /min [facility] Body height 185.909860 cm 185.432349 cm [facility] Diastolic blood 78 mm[Hg] 78 mm[Hg] [facility] Systolic blood 143 mm[Hg] 143 mm[Hg] [facility] Body mass index 31.9 kg/m2 31.9 kg/m2 [facility] (BMI) [Ratio] Medical Center Oxygen 93 % 93 % [facility] saturation in Medical Arterial blood Center by Pulse oximetry Body weight 90.416030 kg 90.482316 kg [facility] Body temperature 36.130374 Kaylie 36.227780 Kaylie [facility] Respiratory rate 20 /min 20 /min [facility] 90 % 90 % [facility] saturation in Medical Arterial blood Center by Pulse oximetry Heart rate 96 /min 96 /min [facility] Body height 177.646311 cm 177.355681 cm [facility] Diastolic blood 63 mm[Hg] 63 mm[Hg] [facility] pressure Medical Center Systolic blood 120 mm[Hg] 120 mm[Hg] [facility] Medical Center Body mass index 28.4 kg/m2 28.4 kg/m2 [facility] (BMI) [Ratio] Medical Center Body temperature 36.142744 Kaylie 36.043404 Kaylie [facility] Respiratory rate 18 /min 18 /min [facility] 97 % 97 % [facility] saturation in Medical Arterial blood Center by Pulse oximetry Heart rate 90 /min 90 /min [facility] Diastolic blood 75 mm[Hg] 75 mm[Hg] [facility] pressure [facility] Center Systolic blood 145 mm[Hg] 145 mm[Hg] [facility] Medical Center Body weight 68.753364 kg 68.686330 kg [facility] Body temperature 36.188281 Kaylie 36.185922 Kaylie [facility] Respiratory rate 18 /min 18 /min [facility] 100 % 100 % [facility] saturation in Medical Arterial blood Center by Pulse oximetry Heart rate 88 /min 88 /min [facility] Body height 170.250055 cm 170.392054 cm [facility] Diastolic blood 74 mm[Hg] 74 mm[Hg] [facility] pressure Medical Center Systolic blood 130 mm[Hg] 130 mm[Hg] [facility] Center Body mass index 23.4 kg/m2 23.4 kg/m2 [facility] (BMI) [Ratio] Medical Center Body temperature 37.185775 Kaylie 37.538495 Kaylie [facility] Respiratory rate 18 /min 18 /min [facility] 93 % 93 % [facility] saturation in Medical Arterial blood Center by Pulse oximetry Heart rate 97 /min 97 /min [facility] Diastolic blood 81 mm[Hg] 81 mm[Hg] [facility] pressure Medical Center Systolic blood 129 mm[Hg] 129 mm[Hg] [facility] Center Body temperature 37.575845 Kaylie 37.380695 Kaylie [facility] Respiratory rate 19 /min 19 /min [facility] 93 % 93 % [facility] saturation in Medical Arterial blood Center by Pulse oximetry Heart rate 96 /min 96 /min [facility] Diastolic blood 76 mm[Hg] 76 mm[Hg] [facility] Systolic blood 134 mm[Hg] 134 mm[Hg] [facility] Medical [place] Body temperature 37.448204 Kaylie 37.785615 Kaylie [facility] Respiratory rate 19 /min 19 /min [facility] 93 % 93 % [facility] saturation in Medical Arterial blood Center by Pulse oximetry Heart rate 95 /min 95 /min [facility] Diastolic blood 66 mm[Hg] 66 mm[Hg] [facility] Systolic blood 154 mm[Hg] 154 mm[Hg] [facility] Body temperature 37.957023 Kaylie 37.479328 Kaylie [facility] Respiratory rate 18 /min 18 /min [facility] 95 % 95 % [facility] saturation in Medical Arterial blood Center by Pulse oximetry Heart rate 86 /min 86 /min [facility] Diastolic blood 72 mm[Hg] 72 mm[Hg] [facility] Systolic blood 108 mm[Hg] 108 mm[Hg] [facility] Medical [place] Body temperature 36.868157 Kaylie 36.596284 Kaylie [facility] Respiratory rate 18 /min 18 /min [facility] 98 % 98 % [facility] saturation in Medical Arterial blood Center by Pulse oximetry Heart rate 84 /min 84 /min [facility] Diastolic blood 80 mm[Hg] 80 mm[Hg] [facility] Systolic blood 127 mm[Hg] 127 mm[Hg] [facility] Body temperature 37.553239 Kaylie 37.451098 Kaylie [facility] Respiratory rate 16 /min 16 /min [facility] 98 % 98 % [facility] saturation in Medical Arterial blood Center by Pulse oximetry Heart rate 84 /min 84 /min [facility] Diastolic blood 76 mm[Hg] 76 mm[Hg] [facility] pressure Medical Center Systolic blood 128 mm[Hg] 128 mm[Hg] [facility] Center Body temperature 37.044664 Kaylie 37.763055 Kaylie [facility] Respiratory rate 16 /min 16 /min [facility] 98 % 98 % [facility] saturation in Medical Arterial blood Center by Pulse oximetry Heart rate 84 /min 84 /min [facility] Diastolic blood 76 mm[Hg] 76 mm[Hg] [facility] pressure Medical Center Systolic blood 128 mm[Hg] 128 mm[Hg] [facility] Body temperature 37.860763 Kaylie 37.164765 Kaylie [facility] Respiratory rate 17 /min 17 /min [facility] 98 % 98 % [facility] saturation in Medical Arterial blood Center by Pulse oximetry Heart rate 87 /min 87 /min [facility] Diastolic blood 70 mm[Hg] 70 mm[Hg] [facility] Systolic blood 121 mm[Hg] 121 mm[Hg] [facility] [facility] Body temperature 36.441601 Kaylie 36.080181 Kaylie [facility] Respiratory rate 16 /min 16 /min [facility] 98 % 98 % [facility] saturation in Medical Arterial blood Center by Pulse oximetry Heart rate 89 /min 89 /min [facility] Diastolic blood 75 mm[Hg] 75 mm[Hg] [facility] pressure Medical Center Systolic blood 135 mm[Hg] 135 mm[Hg] [facility] Body temperature 36.904285 Kaylie 36.993338 Kaylie [facility] Respiratory rate 17 /min 17 /min [facility] 96 % 96 % [facility] saturation in Medical Arterial blood Center by Pulse oximetry Heart rate 95 /min 95 /min [facility] Diastolic blood 78 mm[Hg] 78 mm[Hg] [facility] pressure Medical Center Systolic blood 141 mm[Hg] 141 mm[Hg] [facility] Body temperature 37.353757 Kaylie 37.511865 Kaylie [facility] Respiratory rate 20 /min 20 /min [facility] Heart rate 98 /min 98 /min [facility] Diastolic blood 61 mm[Hg] 61 mm[Hg] [facility] Systolic blood 142 mm[Hg] 142 mm[Hg] [facility] Body temperature 36.599365 Kaylie 36.676155 Kaylie [facility] Respiratory rate 20 /min 20 /min [facility] Heart rate 80 /min 80 /min [facility] Diastolic blood 72 mm[Hg] 72 mm[Hg] [facility] Systolic blood 135 mm[Hg] 135 mm[Hg] [facility] Body temperature 36.930004 Kaylie 36.563688 Kaylie [facility] Respiratory rate 20 /min 20 /min [facility] Heart rate 91 /min 91 /min [facility] Diastolic blood 77 mm[Hg] 77 mm[Hg] [facility] Systolic blood 128 mm[Hg] 128 mm[Hg] [facility] Body temperature 36.350476 Kaylie 36.619835 Kay[facility] Respiratory rate 20 /min 20 /min [facility] Heart rate 102 /min 102 /min [facility] Diastolic blood 72 mm[Hg] 72 mm[Hg] [facility] Systolic blood 102 mm[Hg] 102 mm[Hg] [facility] Body weight 114.053892 kg 114.256983 kg [facility] Body height 175.405935 cm 175.155260 cm [facility] Body mass index 37.11 kg/m2 37.11 kg/m2 [facility] (BMI) [Ratio] [facility] Body temperature 36.966183 Kaylie 36.591568 [facility] Respiratory rate 20 /min 20 /min [facility] Heart rate 91 /min 91 /min [facility] Diastolic blood 71 mm[Hg] 71 mm[Hg] [facility] Systolic blood 156 mm[Hg] 156 mm[Hg] [facility] Body temperature 36.267199 Kaylie 36.200338 Kaylie [facility] Respiratory rate 20 /min 20 /min [facility] Heart rate 97 /min 97 /min [facility] Diastolic blood 88 mm[Hg] 88 mm[Hg] [facility] pressure Medical Center Systolic blood 182 mm[Hg] 182 mm[Hg] [facility] Body weight 114.160629 kg 114.869348 kg [facility] Body height 177.947187 cm 177.410466 cm [facility] Body temperature 37.999922 Kaylie 37.420405 Kay[facility] Respiratory rate 18 /min 18 /min [facility] Heart rate 113 /min 113 /min [facility] Diastolic blood 102 mm[Hg] 102 mm[Hg] [facility] pressure Medical Center Systolic blood 156 mm[Hg] 156 mm[Hg] [facility] Oxygen 96 % 96 % [facility] saturation in Medical Arterial blood Center by Pulse oximetry Body temperature 37.887021 Kaylie 37.318560 [facility] Respiratory rate 19 /min 19 /min [facility] Heart rate 107 /min 107 /min [facility] Diastolic blood 90 mm[Hg] 90 mm[Hg] [facility] pressure Medical Center Systolic blood 154 mm[Hg] 154 mm[Hg] [facility] Oxygen 96 % 96 % [facility] saturation in Medical Arterial blood Center by Pulse oximetry Body temperature 37.984709 Kaylie 37.322235 [facility] Respiratory rate 19 /min 19 /min [facility] Heart rate 104 /min 104 /min [facility] Diastolic blood 92 mm[Hg] 92 mm[Hg] [facility] Systolic blood 148 mm[Hg] 148 mm[Hg] [facility] Oxygen 98 % 98 % [facility] saturation in Medical Arterial blood Center by Pulse oximetry Body temperature 36.294525 Kaylie 36.299714 Kay[facility] Respiratory rate 17 /min 17 /min [facility] Heart rate 75 /min 75 /min [facility] Diastolic blood 78 mm[Hg] 78 mm[Hg] [facility] pressure Medical Center Systolic blood 125 mm[Hg] 125 mm[Hg] [facility] Oxygen 97 % 97 % [facility] saturation in Medical Arterial blood Center by Pulse oximetry Oxygen 98 % 98 % [facility] saturation in Medical Arterial blood Center by Pulse oximetry Body temperature 36.045631 Kaylie 36.916986 [facility] Respiratory rate 17 /min 17 /min [facility] 97 % 97 % [facility] saturation in Medical Arterial blood Center by Pulse oximetry Heart rate 75 /min 75 /min [facility] Diastolic blood 81 mm[Hg] 81 mm[Hg] [facility] Systolic blood 139 mm[Hg] 139 mm[Hg] [facility] [place] Body temperature 36.851068 Kaylie 36.048085 Kaylie [facility] Respiratory rate 17 /min 17 /min [facility] 95 % 95 % [facility] saturation in Medical Arterial blood Center by Pulse oximetry Heart rate 70 /min 70 /min [facility] Diastolic blood 71 mm[Hg] 71 mm[Hg] [facility] [place] Systolic blood 127 mm[Hg] 127 mm[Hg] [facility] [place] Body temperature 36.552206 Kaylie 36.105246 [facility] Respiratory rate 18 /min 18 /min [facility] 97 % 97 % [facility] saturation in Medical Arterial blood Center by Pulse oximetry Heart rate 73 /min 73 /min [facility] Diastolic blood 66 mm[Hg] 66 mm[Hg] [facility] [place] Systolic blood 139 mm[Hg] 139 mm[Hg] [facility] [place] Respiratory rate 16 /min 16 /min [facility] 963 % 963 % [facility] saturation in Medical Arterial blood Center by Pulse oximetry Heart rate 80 /min 80 /min [facility] Diastolic blood 80 mm[Hg] 80 mm[Hg] [facility] Systolic blood 154 mm[Hg] 154 mm[Hg] [facility] [place] Body temperature 36.773926 Kaylie 36.078895 Kaylie [facility] Respiratory rate 19 /min 19 /min [facility] 99 % 99 % [facility] [place] saturation in Medical Arterial blood Center by Pulse oximetry Heart rate 81 /min 81 /min [facility] Diastolic blood 76 mm[Hg] 76 mm[Hg] [facility] pressure Medical Center Systolic blood 133 mm[Hg] 133 mm[Hg] [facility] Body temperature 36.206243 Kaylie 36.419979 Kaylie [facility] Respiratory rate 16 /min 16 /min [facility] 95 % 95 % [facility] saturation in Medical Arterial blood Center by Pulse oximetry Heart rate 73 /min 73 /min [facility] Diastolic blood 74 mm[Hg] 74 mm[Hg] [facility] Systolic blood 138 mm[Hg] 138 mm[Hg] [facility] Body temperature 36.824518 Kaylie 36.607919 Kaylie [facility] Respiratory rate 18 /min 18 /min [facility] 98 % 98 % [facility] [place] saturation in Medical Arterial blood Center by Pulse oximetry Heart rate 76 /min 76 /min [facility] Diastolic blood 78 mm[Hg] 78 mm[Hg] [facility] [place] Systolic blood 121 mm[Hg] 121 mm[Hg] [facility] Body temperature 36.762266 Kaylie 36.203336 Kaylie [facility] Respiratory rate 17 /min 17 /min [facility] 97 % 97 % [facility] saturation in Medical Arterial blood Center by Pulse oximetry Heart rate 84 /min 84 /min [facility] Diastolic blood 74 mm[Hg] 74 mm[Hg] [facility] Systolic blood 128 mm[Hg] 128 mm[Hg] [facility] Body temperature 36.441097 Kaylie 36.749450 Kaylie [facility] Respiratory rate 18 /min 18 /min [facility] 97 % 97 % [facility] [place] saturation in Medical Arterial blood Center by Pulse oximetry Heart rate 88 /min 88 /min [facility] Diastolic blood 102 mm[Hg] 102 mm[Hg] [facility] Systolic blood 164 mm[Hg] 164 mm[Hg] [facility] Body temperature 36.948023 Kaylie 36.838514 Kaylie [facility] Respiratory rate 18 /min 18 /min [facility] 98 % 98 % [facility] [place] saturation in Medical Arterial blood Center by Pulse oximetry Heart rate 77 /min 77 /min [facility] Diastolic blood 75 mm[Hg] 75 mm[Hg] [facility] pressure Medical Center Systolic blood 136 mm[Hg] 136 mm[Hg] [facility] Body temperature 36.079060 Kaylie 36.511259 Kaylie [facility] Respiratory rate 18 /min 18 /min [facility] 98 % 98 % [facility] [place] saturation in Medical Arterial blood Center by Pulse oximetry Heart rate 84 /min 84 /min [facility] Diastolic blood 79 mm[Hg] 79 mm[Hg] [facility] Systolic blood 142 mm[Hg] 142 mm[Hg] [facility] Body temperature 36.204010 Kaylie 36.735158 Kaylie [facility] Respiratory rate 19 /min 19 /min [facility] 99 % 99 % [facility] [place] saturation in Medical Arterial blood Center by Pulse oximetry Heart rate 89 /min 89 /min [facility] Diastolic blood 87 mm[Hg] 87 mm[Hg] [facility] Systolic blood 155 mm[Hg] 155 mm[Hg] [facility] [place] Body temperature 36.701647 Kaylie 36.740029 Kaylie [facility] Respiratory rate 18 /min 18 /min [facility] 99 % 99 % [facility] [place] saturation in Medical Arterial blood Center by Pulse oximetry Heart rate 100 /min 100 /min [facility] Diastolic blood 98 mm[Hg] 98 mm[Hg] [facility] Systolic blood 145 mm[Hg] 145 mm[Hg] [facility] Body temperature 37.978636 Kaylie 37.547514 Kaylie [facility] Respiratory rate 20 /min 20 /min [facility] 95 % 95 % [facility] [place] saturation in Medical Arterial blood Center by Pulse oximetry Heart rate 88 /min 88 /min [facility] Diastolic blood 77 mm[Hg] 77 mm[Hg] [facility] Systolic blood 135 mm[Hg] 135 mm[Hg] [facility] Body weight 79.096433 kg 79.202193 kg [facility] Body temperature 36.829424 Kaylie 36.407875 Kaylie [facility] Respiratory rate 18 /min 18 /min [facility] 99 % 99 % [facility] [place] saturation in Medical Arterial blood Center by Pulse oximetry Heart rate 78 /min 78 /min [facility] Body height 172.186873 cm 172.848576 cm [facility] Diastolic blood 70 mm[Hg] 70 mm[Hg] [facility] pressure [facility] Center Systolic blood 130 mm[Hg] 130 mm[Hg] [facility] Body mass index 26.6 kg/m2 26.6 kg/m2 [facility] (BMI) [Ratio] [facility] Center Body temperature 37.354809 Kaylie 37.610127 [facility]lie [facility] Respiratory rate 18 /min 18 /min [facility] 98 % 98 % [facility] [place] saturation in Medical Arterial blood Center by Pulse oximetry Heart rate 103 /min 103 /min [facility] Diastolic blood 88 mm[Hg] 88 mm[Hg] [facility] pressure Medical Center Systolic blood 142 mm[Hg] 142 mm[Hg] [facility] Body temperature 36.719114 Kaylie 36.308120 [facility] Respiratory rate 18 /min 18 /min [facility] 97 % 97 % [facility] [place] saturation in Medical Arterial blood Center by Pulse oximetry Heart rate 77 /min 77 /min [facility] Diastolic blood 66 mm[Hg] 66 mm[Hg] [facility] pressure [facility] Center Systolic blood 140 mm[Hg] 140 mm[Hg] [facility] Body temperature 36.436251 Kaylie 36.044204 Kay[facility] Respiratory rate 18 /min 18 /min [facility] 96 % 96 % [facility] [place] saturation in Medical Arterial blood Center by Pulse oximetry Heart rate 88 /min 88 /min [facility] Diastolic blood 75 mm[Hg] 75 mm[Hg] [facility] pressure Medical Center Systolic blood 119 mm[Hg] 119 mm[Hg] [facility] Body temperature 36.114129 Kaylie 36.642785 Kaylie [facility] Respiratory rate 19 /min 19 /min [facility] 97 % 97 % [facility] [place] saturation in Medical Arterial blood Center by Pulse oximetry Heart rate 101 /min 101 /min [facility] Diastolic blood 67 mm[Hg] 67 mm[Hg] [facility] pressure [facility] Center Systolic blood 108 mm[Hg] 108 mm[Hg] [facility] Body temperature 36.468400 Kaylie 36.420491 Kaylie [facility] Respiratory rate 17 /min 17 /min [facility] 94 % 94 % [facility] [place] saturation in Medical Arterial blood Center by Pulse oximetry Heart rate 87 /min 87 /min [facility] Diastolic blood 81 mm[Hg] 81 mm[Hg] [facility] [place] Systolic blood 120 mm[Hg] 120 mm[Hg] [facility] [place] Body temperature 36.715459 Kaylie 36.120278 Kaylie [facility] Respiratory rate 17 /min 17 /min [facility] 97 % 97 % [facility] [place] saturation in Medical Arterial blood Center by Pulse oximetry Heart rate 70 /min 70 /min [facility] Diastolic blood 66 mm[Hg] 66 mm[Hg] [facility] [place] Systolic blood 139 mm[Hg] 139 mm[Hg] [facility] Body temperature 36.416320 Kaylie 36.129865 Kaylie [facility] Respiratory rate 17 /min 17 /min [facility] 95 % 95 % [facility] [place] saturation in Medical Arterial blood Center by Pulse oximetry Heart rate 69 /min 69 /min [facility] Diastolic blood 76 mm[Hg] 76 mm[Hg] [facility] Systolic blood 122 mm[Hg] 122 mm[Hg] [facility] Body temperature 36.272750 Kaylie 36.897523 Kaylie [facility] Respiratory rate 17 /min 17 /min [facility] 98 % 98 % [facility] [place] saturation in Medical Arterial blood Center by Pulse oximetry Heart rate 73 /min 73 /min [facility] Diastolic blood 69 mm[Hg] 69 mm[Hg] [facility] Systolic blood 133 mm[Hg] 133 mm[Hg] [facility] [place] Diastolic blood 84 mmHg 84 mmHg [facility] Systolic blood 150 mmHg 150 mmHg [facility] Respiratory rate 18 bpm 18 bpm [facility] Heart rate 86 bpm 86 bpm [facility] Body temperature 97.8 Fahrenheit 97.8 Fahrenhei t [facility] Diastolic blood 79 mmHg 79 mmHg [facility] Systolic blood 135 mmHg 135 mmHg [facility] Respiratory rate 18 bpm 18 bpm [facility] Heart rate 92 bpm 92 bpm [facility] Body temperature 97.5 Fahrenheit 97.5 Fahrenhei t [facility] Diastolic blood 77 mmHg 77 mmHg [facility] Systolic blood 124 mmHg 124 mmHg [facility] Respiratory rate 18 bpm 18 bpm [facility] Heart rate 90 bpm 90 bpm [facility] Body temperature 98.0 Fahrenheit 98.0 Fahrenhei t [facility] Diastolic blood 89 mmHg 89 mmHg [facility] Systolic blood 149 mmHg 149 mmHg [facility] Respiratory rate 18 bpm 18 bpm [facility] Heart rate 105 bpm 105 bpm [facility] Body temperature 98.2 Fahrenheit 98.2 Fahrenhei t [facility] Body temperature 97.3 Fahrenheit 97.3 Fahrenhei t [facility] Body weight 233 lbs 233 lbs [facility] Diastolic blood 87 mmHg 87 mmHg [facility] Systolic blood 140 mmHg 140 mmHg [facility] Respiratory rate 18 bpm 18 bpm [facility] Heart rate 103 bpm 103 bpm [facility] Body temperature 98.1 Fahrenheit 98.1 Fahrenh t [facility] Body temperature 97.4 Fahrenheit 97.4 Fahrenhei t [facility] Body temperature 36.819689 Kaylie 36.079451 [facility]lie [facility] Respiratory rate 17 /min 17 /min [facility] 95 % 95 % [facility] saturation in Medical Arterial blood Center by Pulse oximetry Heart rate 79 /min 79 /min [facility] Diastolic blood 71 mm[Hg] 71 mm[Hg] [facility] Systolic blood 122 mm[Hg] 122 mm[Hg] [facility] Body temperature 36.009876 Kaylie 36.011515 [facility]lie [facility] Respiratory rate 17 /min 17 /min [facility] 98 % 98 % [facility] saturation in Medical Arterial blood Center by Pulse oximetry Heart rate 79 /min 79 /min [facility] Diastolic blood 69 mm[Hg] 69 mm[Hg] [facility] pressure [facility] Center Systolic blood 133 mm[Hg] 133 mm[Hg] [facility] Body temperature 37.756663 Kaylie 37.180458 [facility] Respiratory rate 16 /min 16 /min [facility] 97 % 97 % [facility] [place] saturation in Medical Arterial blood Center by Pulse oximetry Heart rate 96 /min 96 /min [facility] Diastolic blood 91 mm[Hg] 91 mm[Hg] [facility] Systolic blood 154 mm[Hg] 154 mm[Hg] [facility] Body temperature 37.790897 Kaylie 37.749915 Kaylie [facility] Respiratory rate 18 /min 18 /min [facility] Heart rate 102 /min 102 /min [facility] Diastolic blood 107 mm[Hg] 107 mm[Hg] [facility] Systolic blood 162 mm[Hg] 162 mm[Hg] [facility] [place] Body temperature 36.405948 Kaylie 36.989384 Kaylie [facility] Respiratory rate 18 /min 18 /min [facility] 97 % 97 % [facility] [place] saturation in Medical Arterial blood Center by Pulse oximetry Heart rate 101 /min 101 /min [facility] Diastolic blood 95 mm[Hg] 95 mm[Hg] [facility] [place] Systolic blood 159 mm[Hg] 159 mm[Hg] [facility] Body temperature 36.221257 Kaylie 36.454411 Kaylie [facility] Respiratory rate 18 /min 18 /min [facility] 96 % 96 % [facility] [place] saturation in Medical Arterial blood Center by Pulse oximetry Heart rate 93 /min 93 /min [facility] Diastolic blood 61 mm[Hg] 61 mm[Hg] [facility] pressure [facility] Center Systolic blood 111 mm[Hg] 111 mm[Hg] [facility] Body temperature 36.194454 Kaylie 36.528894 [facility] Respiratory rate 16 /min 16 /min [facility] 98 % 98 % [facility] [place] saturation in Medical Arterial blood Center by Pulse oximetry Heart rate 78 /min 78 /min [facility] Diastolic blood 73 mm[Hg] 73 mm[Hg] [facility] Systolic blood 124 mm[Hg] 124 mm[Hg] [facility] Body temperature 36.115775 Kaylie 36.715013 Kaylie [facility] Respiratory rate 16 /min 16 /min [facility] 96 % 96 % [facility] [place] saturation in Medical Arterial blood Center by Pulse oximetry Heart rate 94 /min 94 /min [facility] Diastolic blood 71 mm[Hg] 71 mm[Hg] [facility] pressure [facility] Center Systolic blood 131 mm[Hg] 131 mm[Hg] [facility] Body temperature 36.972608 Kaylie 36.081237 Kaylie [facility] Respiratory rate 15 /min 15 /min [facility] 98 % 98 % [place] saturation in Medical Arterial blood Center by Pulse oximetry Heart rate 100 /min 100 /min [facility] Diastolic blood 73 mm[Hg] 73 mm[Hg] [facility] Systolic blood 129 mm[Hg] 129 mm[Hg] [facility] Body weight 77.779856 kg 77.833042 kg [facility] [place] Body temperature 36.597064 Kaylie 36.328398 [facility] Respiratory rate 18 /min 18 /min [facility] 96 % 96 % [facility] saturation in Medical Arterial blood Center by Pulse oximetry Heart rate 99 /min 99 /min [facility] Body height 167.899306 cm 167.459008 cm [facility] Diastolic blood 74 mm[Hg] 74 mm[Hg] [facility] Systolic blood 128 mm[Hg] 128 mm[Hg] [facility] Body mass index 27.4 kg/m2 27.4 kg/m2 [facility] (BMI) [Ratio] [facility] Center Body temperature 36.924533 Kaylie 36.273462 [facility]lie [facility] Respiratory rate 17 /min 17 /min [facility] 99 % 99 % [place] saturation in Medical Arterial blood Center by Pulse oximetry Heart rate 81 /min 81 /min [facility] Diastolic blood 69 mm[Hg] 69 mm[Hg] [facility] Systolic blood 118 mm[Hg] 118 mm[Hg] [facility] Body weight 113.813372 kg 113.573958 kg [facility] Body temperature 37.039980 Kaylie 37.370033 [facility]lie [facility] Respiratory rate 19 /min 19 /min [facility] 94 % 94 % [facility] [place] saturation in Medical Arterial blood Center by Pulse oximetry Heart rate 102 /min 102 /min [facility] Body height 172.702695 cm 172.972917 cm [facility] Diastolic blood 78 mm[Hg] 78 mm[Hg] [facility] pressure [facility] Center Systolic blood 138 mm[Hg] 138 mm[Hg] [facility] Body mass index 38.0 kg/m2 38.0 kg/m2 [facility] (BMI) [Ratio] [facility] Body temperature 36.393743 Kaylie 36.614066 [facility]lie [facility] Respiratory rate 18 /min 18 /min [facility] 98 % 98 % [facility] [place] saturation in Medical Arterial blood Center by Pulse oximetry Heart rate 104 /min 104 /min [facility] Diastolic blood 50 mm[Hg] 50 mm[Hg] [facility] [place] Systolic blood 91 mm[Hg] 91 mm[Hg] [facility] Body temperature 36.450698 Kaylie 36.570068 Kaylie [facility] Respiratory rate 18 /min 18 /min [facility] 91 % 91 % [facility] [place] saturation in Medical Arterial blood Center by Pulse oximetry Heart rate 97 /min 97 /min [facility] Diastolic blood 75 mm[Hg] 75 mm[Hg] [facility] [facility] Systolic blood 126 mm[Hg] 126 mm[Hg] [facility] Body temperature 36.615746 Kaylie 36.913978 [facility] Respiratory rate 18 /min 18 /min [facility] 100 % 100 % [place] saturation in Medical Arterial blood Center by Pulse oximetry Heart rate 95 /min 95 /min [facility] Diastolic blood 57 mm[Hg] 57 mm[Hg] [facility] Systolic blood 106 mm[Hg] 106 mm[Hg] [facility] Body weight 83.311015 kg 83.129446 kg [facility] Body temperature 36.343508 Kaylie 36.926650 [facility] Respiratory rate 19 /min 19 /min [facility] 97 % 97 % [facility] [place] saturation in Medical Arterial blood Center by Pulse oximetry Heart rate 95 /min 95 /min [facility] Body height 175.599178 cm 175.152716 cm [facility] Diastolic blood 58 mm[Hg] 58 mm[Hg] [facility] pressure [facility] Center Systolic blood 107 mm[Hg] 107 mm[Hg] [facility] Body mass index 27.3 kg/m2 27.3 kg/m2 [facility] (BMI) [Ratio] [facility] Body temperature 36.742761 Kaylie 36.299714 [facility] Respiratory rate 16 /min 16 /min [facility] 98 % 98 % [place] saturation in Medical Arterial blood Center by Pulse oximetry Heart rate 84 /min 84 /min [facility] Diastolic blood 74 mm[Hg] 74 mm[Hg] [facility] Systolic blood 141 mm[Hg] 141 mm[Hg] [facility] Body temperature 37.484995 Kaylie 37.112711 [facility] Respiratory rate 18 /min 18 /min [facility] 96 % 96 % [facility] [place] saturation in Medical Arterial blood Center by Pulse oximetry Heart rate 90 /min 90 /min [facility] Diastolic blood 60 mm[Hg] 60 mm[Hg] [facility] Systolic blood 103 mm[Hg] 103 mm[Hg] [facility] Body temperature 37.073468 Kaylie 37.571901 [facility] Respiratory rate 17 /min 17 /min [facility] 99 % 99 % [place] saturation in Medical Arterial blood Center by Pulse oximetry Heart rate 88 /min 88 /min [facility] Diastolic blood 86 mm[Hg] 86 mm[Hg] [facility] Systolic blood 138 mm[Hg] 138 mm[Hg] [facility] Body temperature 36.965627 Kaylie 36.770816 [facility] Respiratory rate 16 /min 16 /min [facility] 98 % 98 % [facility] [place] saturation in Medical Arterial blood Center by Pulse oximetry Heart rate 78 /min 78 /min [facility] Diastolic blood 91 mm[Hg] 91 mm[Hg] [facility] pressure [facility] Center Systolic blood 145 mm[Hg] 145 mm[Hg] [facility] Body temperature 36.473079 Kaylie 36.951207 [facility] Respiratory rate 16 /min 16 /min [facility] 98 % 98 % [facility] [place] saturation in Medical Arterial blood Center by Pulse oximetry Heart rate 75 /min 75 /min [facility] Diastolic blood 84 mm[Hg] 84 mm[Hg] [facility] pressure [facility] Center Systolic blood 151 mm[Hg] 151 mm[Hg] [facility] [place] Body temperature 36.353963 Kaylie 36.413793 [facility] Respiratory rate 16 /min 16 /min [facility] 98 % 98 % [facility] [place] saturation in Medical Arterial blood Center by Pulse oximetry Heart rate 74 /min 74 /min [facility] Diastolic blood 87 mm[Hg] 87 mm[Hg] [facility] Systolic blood 148 mm[Hg] 148 mm[Hg] [facility] [place] Body temperature 36.553664 Kaylie 36.422059 [facility] Respiratory rate 16 /min 16 /min [facility] 96 % 96 % [place] saturation in Medical Arterial blood Center by Pulse oximetry Heart rate 79 /min 79 /min [facility] Diastolic blood 88 mm[Hg] 88 mm[Hg] [facility] Systolic blood 151 mm[Hg] 151 mm[Hg] [facility] Body temperature 37.167098 Kaylie 37.642123 [facility] Respiratory rate 16 /min 16 /min [facility] 98 % 98 % [place] saturation in Medical Arterial blood Center by Pulse oximetry Heart rate 86 /min 86 /min [facility] Diastolic blood 94 mm[Hg] 94 mm[Hg] [facility] pressure [facility] Center Systolic blood 145 mm[Hg] 145 mm[Hg] [facility] Body temperature 36.741493 Kaylie 36.114548 [facility] Respiratory rate 19 /min 19 /min [facility] 97 % 97 % [place] saturation in Medical Arterial blood Center by Pulse oximetry Heart rate 92 /min 92 /min [facility] Diastolic blood 88 mm[Hg] 88 mm[Hg] [facility] pressure [facility] Center Systolic blood 148 mm[Hg] 148 mm[Hg] [facility] Body temperature 36.371256 Kaylie 36.735315 [facility] Respiratory rate 17 /min 17 /min [facility] 97 % 97 % [place] saturation in Medical Arterial blood Center by Pulse oximetry Heart rate 71 /min 71 /min [facility] Diastolic blood 87 mm[Hg] 87 mm[Hg] [facility] pressure [facility] Center Systolic blood 139 mm[Hg] 139 mm[Hg] [facility] [place] Body temperature 36.548677 Kaylie 36.679667 [facility] Respiratory rate 18 /min 18 /min [facility] 97 % 97 % [place] saturation in Medical Arterial blood Center by Pulse oximetry Heart rate 84 /min 84 /min [facility] Diastolic blood 77 mm[Hg] 77 mm[Hg] [facility] pressure [facility] Center Systolic blood 132 mm[Hg] 132 mm[Hg] [facility] Diastolic blood 68 mm[Hg] 68 mm[Hg] [facility] pressure [facility] Center Systolic blood 119 mm[Hg] 119 mm[Hg] [facility] [place] Body temperature 36.624763 Kaylie 36.637966 [facility] Respiratory rate 17 /min 17 /min [facility] 98 % 98 % [place] saturation in Medical Arterial blood Center by Pulse oximetry Heart rate 88 /min 88 /min [facility] Body temperature 36.917041 Kaylie 36.664482 [facility] Respiratory rate 17 /min 17 /min [facility] 97 % 97 % [place] saturation in Medical Arterial blood Center by Pulse oximetry Heart rate 81 /min 81 /min [facility] Diastolic blood 72 mm[Hg] 72 mm[Hg] [facility] pressure [facility] Center Systolic blood 131 mm[Hg] 131 mm[Hg] [facility] Body weight 90.462719 kg 90.693225 kg [facility] Body temperature 36.972853 Kaylie 36.827760 [facility] Respiratory rate 16 /min 16 /min [facility] 9 % 9 % [place] saturation in Medical Arterial blood Center by Pulse oximetry Heart rate 80 /min 80 /min [facility] Body height 177.990325 cm 177.204618 cm [facility] Diastolic blood 95 mm[Hg] 95 mm[Hg] [facility] Systolic blood 152 mm[Hg] 152 mm[Hg] [facility] Body mass index 28.6 kg/m2 28.6 kg/m2 [facility] (BMI) [Ratio] [facility] Body temperature 36.176941 Kaylie 36.411365 [facility] Respiratory rate 18 /min 18 /min [facility] 100 % 100 % [place] saturation in Medical Arterial blood Center by Pulse oximetry Heart rate 81 /min 81 /min [facility] Diastolic blood 70 mm[Hg] 70 mm[Hg] [facility] Systolic blood 119 mm[Hg] 119 mm[Hg] [facility] Body temperature 36.171773 Kaylie 36.814327 [facility] Respiratory rate 18 /min 18 /min [facility] 97 % 97 % [place] saturation in Medical Arterial blood Center by Pulse oximetry Heart rate 86 /min 86 /min [facility] Diastolic blood 76 mm[Hg] 76 mm[Hg] [facility] Systolic blood 119 mm[Hg] 119 mm[Hg] [facility] Body temperature 36.858536 Kaylie 36.462137 [facility] Respiratory rate 18 /min 18 /min [facility] 97 % 97 % [place] saturation in Medical Arterial blood Center by Pulse oximetry Heart rate 94 /min 94 /min [facility] Diastolic blood 87 mm[Hg] 87 mm[Hg] [facility] Systolic blood 140 mm[Hg] 140 mm[Hg] [facility] Body temperature 36.955914 Kaylie 36.352747 [facility] Respiratory rate 19 /min 19 /min [facility] 100 % 100 % [place] saturation in Medical Arterial blood Center by Pulse oximetry Heart rate 83 /min 83 /min [facility] Diastolic blood 71 mm[Hg] 71 mm[Hg] [facility] pressure [facility] Center Systolic blood 126 mm[Hg] 126 mm[Hg] [facility] Body temperature 36.093110 Kaylie 36.283575 [facility] Respiratory rate 18 /min 18 /min [facility] 99 % 99 % [place] saturation in Medical Arterial blood Center by Pulse oximetry Heart rate 79 /min 79 /min [facility] Diastolic blood 77 mm[Hg] 77 mm[Hg] [facility] pressure [facility] Center Systolic blood 126 mm[Hg] 126 mm[Hg] [facility] pressure [facility] Center Body weight 125.770072 kg 125.519290 kg [facility] Body temperature 36.626690 Kaylie 36.537893 [facility] Respiratory rate 18 /min 18 /min [facility] 98 % 98 % [place] saturation in Medical Arterial blood Center by Pulse oximetry Heart rate 98 /min 98 /min [facility] Body height 177.813551 cm 177.549905 cm [facility] Diastolic blood 78 mm[Hg] 78 mm[Hg] [facility] pressure [facility] Center Systolic blood 110 mm[Hg] 110 mm[Hg] [facility] Body mass index 39.5 kg/m2 39.5 kg/m2 [facility] (BMI) [Ratio] [facility] Body temperature 36.648660 Kaylie 36.588975 [facility] Respiratory rate 17 /min 17 /min [facility] 96 % 96 % [place] saturation in Medical Arterial blood Center by Pulse oximetry Heart rate 88 /min 88 /min [facility] Diastolic blood 75 mm[Hg] 75 mm[Hg] [facility] pressure [facility] Center Systolic blood 104 mm[Hg] 104 mm[Hg] [facility] Body weight 110.650602 kg 110.344972 kg [facility] Body temperature 36.420606 Kaylie 36.022542 [facility] Respiratory rate 18 /min 18 /min [facility] 98 % 98 % [place] saturation in Medical Arterial blood Center by Pulse oximetry Heart rate 78 /min 78 /min [facility] Body height 187.987699 cm 187.139443 cm [facility] Diastolic blood 78 mm[Hg] 78 mm[Hg] [facility] pressure [facility] Center Systolic blood 148 mm[Hg] 148 mm[Hg] [facility] Body mass index 31.1 kg/m2 31.1 kg/m2 [facility] (BMI) [Ratio] [facility] Body temperature 36.830407 Kaylie 36.977123 [facility] Respiratory rate 17 /min 17 /min [facility] 98 % 98 % [place] saturation in Medical Arterial blood Center by Pulse oximetry Heart rate 75 /min 75 /min [facility] Diastolic blood 68 mm[Hg] 68 mm[Hg] [facility] pressure [facility] Systolic blood 129 mm[Hg] 129 mm[Hg] [facility] 98 % 98 % [place] saturation in Medical Arterial blood Center by Pulse oximetry Heart rate 75 /min 75 /min [facility] Diastolic blood 68 mm[Hg] 68 mm[Hg] [facility] pressure [facility] Center Systolic blood 133 mm[Hg] 133 mm[Hg] [facility] Body temperature 36.799492 Kaylie 36.067922 [facility] Respiratory rate 17 /min 17 /min [facility] Body temperature 36.349789 Kaylie 36.075304 [facility] Respiratory rate 17 /min 17 /min [facility] 98 % 98 % [place] saturation in Medical Arterial blood Center by Pulse oximetry Heart rate 82 /min 82 /min [facility] Diastolic blood 87 mm[Hg] 87 mm[Hg] [facility] pressure [facility] Center Systolic blood 142 mm[Hg] 142 mm[Hg] [facility] Body temperature 36.512917 Kaylie 36.022576 [facility] Oxygen 97 % 97 % [place] saturation in Medical Arterial blood Center by Pulse oximetry Heart rate 87 /min 87 /min [facility] Diastolic blood 81 mm[Hg] 81 mm[Hg] [facility] Systolic blood 150 mm[Hg] 150 mm[Hg] [facility] Body temperature 37.190810 Kaylie 37.871144 [facility] Respiratory rate 19 /min 19 /min [facility] 96 % 96 % [place] saturation in Medical Arterial blood Center by Pulse oximetry Heart rate 89 /min 89 /min [facility] Diastolic blood 91 mm[Hg] 91 mm[Hg] [facility] Systolic blood 158 mm[Hg] 158 mm[Hg] [facility] Body weight 104.726826 kg 104.421391 kg [facility] Body temperature 37.667672 Kaylie 37.509112 [facility] Respiratory rate 17 /min 17 /min [facility] 96 % 96 % [place] saturation in Medical Arterial blood Center by Pulse oximetry Heart rate 92 /min 92 /min [facility] Body height 177.752280 cm 177.330123 cm [facility] Diastolic blood 101 mm[Hg] 101 mm[Hg] [facility] Systolic blood 152 mm[Hg] 152 mm[Hg] [facility] Body mass index 33.0 kg/m2 33.0 kg/m2 [facility] (BMI) [Ratio] [facility] Body weight 110.361931 kg 110.284139 kg [facility] Body temperature 36.125341 Kaylie 36.269655 [facility] Respiratory rate 18 /min 18 /min [facility] 98 % 98 % [place] saturation in Medical Arterial blood Center by Pulse oximetry Heart rate 78 /min 78 /min [facility] Body height 185.036815 cm 185.472178 cm [facility] Diastolic blood 78 mm[Hg] 78 mm[Hg] [facility] Systolic blood 142 mm[Hg] 142 mm[Hg] [facility] Body mass index 31.9 kg/m2 31.9 kg/m2 [facility] (BMI) [Ratio] [facility] Body temperature 36.952527 Kaylie 36.954038 [facility] Respiratory rate 18 /min 18 /min [facility] 95 % 95 % [place] saturation in Medical Arterial blood Center by Pulse oximetry Heart rate 91 /min 91 /min [facility] Diastolic blood 74 mm[Hg] 74 mm[Hg] [facility] pressure [facility] Systolic blood 144 mm[Hg] 144 mm[Hg] [facility] Body temperature 37.775791 Kaylie 37.907272 [facility] Respiratory rate 20 /min 20 /min [facility] 96 % 96 % [place] saturation in Medical Arterial blood Center by Pulse oximetry Heart rate 89 /min 89 /min [facility] Diastolic blood 79 mm[Hg] 79 mm[Hg] [facility] pressure [facility] Systolic blood 140 mm[Hg] 140 mm[Hg] [facility] pressure [facility] Center Body weight 90.370260 kg 90.299458 kg [facility] Body temperature 36.737781 Kaylie 36.756852 [facility] Respiratory rate 18 /min 18 /min [facility] 99 % 99 % [place] saturation in Medical Arterial blood Center by Pulse oximetry Heart rate 97 /min 97 /min [facility] Body height 177.613891 cm 177.715962 cm [facility] Diastolic blood 86 mm[Hg] 86 mm[Hg] [facility] pressure [facility] Center Systolic blood 157 mm[Hg] 157 mm[Hg] [facility] Body mass index 28.6 kg/m2 28.6 kg/m2 [facility] (BMI) [Ratio] [facility] Body temperature 36.592253 Kaylie 36.187617 [facility] Respiratory rate 19 /min 19 /min [facility] 97 % 97 % [place] saturation in Medical Arterial blood Center by Pulse oximetry Heart rate 78 /min 78 /min [facility] Diastolic blood 78 mm[Hg] 78 mm[Hg] [facility] pressure [facility] Center Systolic blood 132 mm[Hg] 132 mm[Hg] [facility] Body temperature 37.621487 Kaylie 37.077603 [facility] Respiratory rate 18 /min 18 /min [facility] 96 % 96 % [place] saturation in Medical Arterial blood Center by Pulse oximetry Heart rate 92 /min 92 /min [facility] Diastolic blood 64 mm[Hg] 64 mm[Hg] [facility] pressure [facility] Center Systolic blood 117 mm[Hg] 117 mm[Hg] [facility] Body temperature 37.979544 Kaylie 37.535311 [facility] Respiratory rate 19 /min 19 /min [facility] 98 % 98 % [place] saturation in Medical Arterial blood Center by Pulse oximetry Heart rate 96 /min 96 /min [facility] Diastolic blood 98 mm[Hg] 98 mm[Hg] [facility] pressure [facility] Center Systolic blood 148 mm[Hg] 148 mm[Hg] [facility] Body temperature 36.706563 Kaylie 36.636121 [facility] Respiratory rate 18 /min 18 /min [facility] 98 % 98 % [place] saturation in Medical Arterial blood Center by Pulse oximetry Heart rate 88 /min 88 /min [facility] Diastolic blood 78 mm[Hg] 78 mm[Hg] [facility] pressure [facility] Center Systolic blood 134 mm[Hg] 134 mm[Hg] [facility] Body temperature 36.074542 Kaylie 36.314370 [facility] Respiratory rate 18 /min 18 /min [facility] 90 % 90 % [place] saturation in Medical Arterial blood Center by Pulse oximetry Heart rate 76 /min 76 /min [facility] Diastolic blood 76 mm[Hg] 76 mm[Hg] [facility] Systolic blood 134 mm[Hg] 134 mm[Hg] [facility]xygen 95 % 95 % [place] saturation in Medical Arterial blood Center by Pulse oximetry Heart rate 74 /min 74 /min [facility] Diastolic blood 81 mm[Hg] 81 mm[Hg] [facility] pressure [facility] Center Systolic blood 127 mm[Hg] 127 mm[Hg] [facility] Body temperature 36.341206 Kaylie 36.053815 [facility] Respiratory rate 16 /min 16 /min [facility] Body temperature 36.927550 Kaylie 36.459905 [facility] Oxygen 95 % 95 % [place] saturation in Medical Arterial blood Center by Pulse oximetry Heart rate 79 /min 79 /min [facility] Diastolic blood 74 mm[Hg] 74 mm[Hg] [facility] pressure [facility] Center Systolic blood 131 mm[Hg] 131 mm[Hg] [facility] [place] Body temperature 37.634149 Kaylie 37.360741 [facility] Respiratory rate 16 /min 16 /min [facility] 98 % 98 % [place] saturation in Medical Arterial blood Center by Pulse oximetry Heart rate 84 /min 84 /min [facility] Diastolic blood 74 mm[Hg] 74 mm[Hg] [facility] pressure [facility] Systolic blood 131 mm[Hg] 131 mm[Hg] [facility] Body temperature 37.444831 Kaylie 37.004506 [facility] Respiratory rate 17 /min 17 /min [facility] 99 % 99 % [place] saturation in Medical Arterial blood Center by Pulse oximetry Heart rate 81 /min 81 /min [facility] Diastolic blood 78 mm[Hg] 78 mm[Hg] [facility] Systolic blood 127 mm[Hg] 127 mm[Hg] [facility] [place] Body weight 104.723402 kg 104.604303 kg [facility] Body temperature 36.703744 Kaylie 36.504923 [facility] Respiratory rate 17 /min 17 /min [facility] 98 % 98 % [place] saturation in Medical Arterial blood Center by Pulse oximetry Heart rate 101 /min 101 /min [facility] Body height 177.390477 cm 177.538745 cm [facility] Diastolic blood 94 mm[Hg] 94 mm[Hg] [facility] Systolic blood 163 mm[Hg] 163 mm[Hg] [facility] Body mass index 33.0 kg/m2 33.0 kg/m2 [facility] (BMI) [Ratio] [facility] Body temperature 36.473830 Kaylie 36.914599 [facility] Respiratory rate 17 /min 17 /min [facility] 98 % 98 % [place] saturation in Medical Arterial blood Center by Pulse oximetry Heart rate 72 /min 72 /min [facility] Diastolic blood 96 mm[Hg] 96 mm[Hg] [facility] pressure [facility] Systolic blood 139 mm[Hg] 139 mm[Hg] [facility] Body temperature 36.000662 Kaylie 36.346161 [facility] Respiratory rate 18 /min 18 /min [facility] 97 % 97 % [place] saturation in Medical Arterial blood Center by Pulse oximetry Heart rate 66 /min 66 /min [facility] Diastolic blood 52 mm[Hg] 52 mm[Hg] [facility] pressure [facility] Systolic blood 100 mm[Hg] 100 mm[Hg] [facility] Body weight 77.893105 kg 77.931643 kg [facility] [place] Body temperature 36.176227 Kaylie 36.634446 [facility] Respiratory rate 18 /min 18 /min [facility] 97 % 97 % [place] saturation in Medical Arterial blood Center by Pulse oximetry Heart rate 82 /min 82 /min [facility] Body height 167.291860 cm 167.454759 cm [facility] Diastolic blood 80 mm[Hg] 80 mm[Hg] [facility] Systolic blood 130 mm[Hg] 130 mm[Hg] [facility] Body mass index 27.4 kg/m2 27.4 kg/m2 [facility] (BMI) [Ratio] [facility] Body temperature 36.936592 Kaylie 36.466664 [facility] Respiratory rate 17 /min 17 /min [facility] 99 % 99 % [place] saturation in Medical Arterial blood Center by Pulse oximetry Heart rate 88 /min 88 /min [facility] Diastolic blood 77 mm[Hg] 77 mm[Hg] [facility] pressure [facility] Systolic blood 128 mm[Hg] 128 mm[Hg] [facility] Body temperature 37.376283 Kaylie 37.134390 [facility] Respiratory rate 18 /min 18 /min [facility] 96 % 96 % [place] saturation in Medical Arterial blood Center by Pulse oximetry Heart rate 94 /min 94 /min [facility] Diastolic blood 80 mm[Hg] 80 mm[Hg] [facility] Systolic blood 122 mm[Hg] 122 mm[Hg] [facility] Body temperature 36.706748 Kaylie 36.119542 [facility] Respiratory rate 20 /min 20 /min [facility] 94 % 94 % [facility] saturation in [facility] by Pulse oximetry Heart rate 93 /min 93 /min [facility] Diastolic blood 61 mm[Hg] 61 mm[Hg] [facility] pressure Medical Center Systolic blood 122 mm[Hg] 122 mm[Hg] [facility] [place] Body temperature 36.905240 Kaylie 36.856523 [facility] Respiratory rate 17 /min 17 /min [facility] 97 % 97 % [facility] saturation in Medical Arterial blood Center by Pulse oximetry Heart rate 81 /min 81 /min [facility] Diastolic blood 82 mm[Hg] 82 mm[Hg] [facility] pressure Medical Center Systolic blood 142 mm[Hg] 142 mm[Hg] [facility] [place] Body temperature 36.507509 Kaylie 36.309712 [facility] Respiratory rate 18 /min 18 /min [facility] 98 % 98 % [facility] saturation in Medical Arterial blood Center by Pulse oximetry Heart rate 86 /min 86 /min [facility] Diastolic blood 78 mm[Hg] 78 mm[Hg] [facility] pressure Medical Center Systolic blood 122 mm[Hg] 122 mm[Hg] [facility] Body temperature 36.708170 Kaylie 36.142736 [facility] Respiratory rate 17 /min 17 /min [facility] 96 % 96 % [facility] saturation in Medical Arterial blood Center by Pulse oximetry Heart rate 83 /min 83 /min [facility] Diastolic blood 71 mm[Hg] 71 mm[Hg] [facility] pressure Medical Center Systolic blood 125 mm[Hg] 125 mm[Hg] [facility] Body temperature 37.575072 Kaylie 37.069490 [facility] Respiratory rate 16 /min 16 /min [facility] 94 % 94 % [facility] saturation in Medical Arterial blood Center by Pulse oximetry Heart rate 92 /min 92 /min [facility] Diastolic blood 72 mm[Hg] 72 mm[Hg] [facility] Systolic blood 142 mm[Hg] 142 mm[Hg] [facility] Body weight 90.355124 kg 90.504394 kg [facility] Body temperature 37.230406 Kaylie 37.017435 [facility] Respiratory rate 18 /min 18 /min [facility] 92 % 92 % [facility] saturation in Medical Arterial blood Center by Pulse oximetry Heart rate 96 /min 96 /min [facility] Body height 177.479432 cm 177.517965 cm [facility] Diastolic blood 70 mm[Hg] 70 mm[Hg] [facility] pressure Medical Center Systolic blood 122 mm[Hg] 122 mm[Hg] [facility] Body mass index 28.6 kg/m2 28.6 kg/m2 [facility] (BMI) [Ratio] Medical Center Body temperature 36.213999 Kaylie 36.902143 [facility] Respiratory rate 17 /min 17 /min [facility] 98 % 98 % [facility] saturation in Medical Arterial blood Center by Pulse oximetry Heart rate 75 /min 75 /min [facility] Diastolic blood 65 mm[Hg] 65 mm[Hg] [facility] Systolic blood 133 mm[Hg] 133 mm[Hg] [facility] Body temperature 36.087531 Kaylie 36.181356 [facility] Respiratory rate 18 /min 18 /min [facility] 98 % 98 % [facility] saturation in Medical Arterial blood Center by Pulse oximetry Heart rate 90 /min 90 /min [facility] Diastolic blood 72 mm[Hg] 72 mm[Hg] [facility] Systolic blood 127 mm[Hg] 127 mm[Hg] [facility] Body weight 75.025877 kg 75.330922 kg [facility] Body temperature 36.351994 Kaylie 36.560730 [facility] Respiratory rate 19 /min 19 /min [facility] 98 % 98 % [facility] saturation in Medical Arterial blood Center by Pulse oximetry Heart rate 88 /min 88 /min [facility] Body height 170.259095 cm 170.869629 cm [facility] Diastolic blood 82 mm[Hg] 82 mm[Hg] [facility] pressure Medical Center Systolic blood 140 mm[Hg] 140 mm[Hg] [facility] Body mass index 26.1 kg/m2 26.1 kg/m2 [facility] (BMI) [Ratio] Medical Center Body temperature 35.580811 Kaylie 35.099830 [facility] Respiratory rate 19 /min 19 /min [facility] 96 % 96 % [facility] saturation in Medical Arterial blood Center by Pulse oximetry Heart rate 89 /min 89 /min [facility] Diastolic blood 75 mm[Hg] 75 mm[Hg] [facility] Systolic blood 102 mm[Hg] 102 mm[Hg] [facility] Body temperature 36.257590 Kaylie 36.447798 [facility] Respiratory rate 18 /min 18 /min [facility] 98 % 98 % [facility] saturation in Medical Arterial blood Center by Pulse oximetry Heart rate 76 /min 76 /min [facility] Diastolic blood 76 mm[Hg] 76 mm[Hg] [facility] Systolic blood 112 mm[Hg] 112 mm[Hg] [facility] Body temperature 36.092506 Kaylie 36.335340 [facility] Respiratory rate 18 /min 18 /min [facility] 98 % 98 % [facility] saturation in Medical Arterial blood Center by Pulse oximetry Heart rate 76 /min 76 /min [facility] Diastolic blood 76 mm[Hg] 76 mm[Hg] [facility] Systolic blood 112 mm[Hg] 112 mm[Hg] [facility] Body temperature 37.008517 Kaylie 37.368897 [facility] Respiratory rate 18 /min 18 /min [facility] 100 % 100 % [facility] saturation in Medical Arterial blood Center by Pulse oximetry Heart rate 88 /min 88 /min [facility] Diastolic blood 78 mm[Hg] 78 mm[Hg] [facility] Systolic blood 130 mm[Hg] 130 mm[Hg] [facility] Body temperature 36.915648 Kaylie 36.637627 [facility] Respiratory rate 17 /min 17 /min [facility] 100 % 100 % [facility] saturation in Medical Arterial blood Center by Pulse oximetry Heart rate 81 /min 81 /min [facility] Diastolic blood 71 mm[Hg] 71 mm[Hg] [facility] Systolic blood 117 mm[Hg] 117 mm[Hg] [facility] Body weight 100.783352 kg 100.672918 kg [facility] Body temperature 36.974909 Kaylie 36.273273 [facility] Respiratory rate 18 /min 18 /min [facility] 94 % 94 % [facility] [place] saturation in Medical Arterial blood Center by Pulse oximetry Heart rate 97 /min 97 /min [facility] Body height 177.654888 cm 177.203157 cm [facility] Diastolic blood 72 mm[Hg] 72 mm[Hg] [facility] pressure Medical Center Systolic blood 118 mm[Hg] 118 mm[Hg] [facility] Body mass index 31.6 kg/m2 31.6 kg/m2 [facility] (BMI) [Ratio] Medical Center Body temperature 36.395124 Kaylie 36.320494 [facility] Respiratory rate 17 /min 17 /min [facility] 95 % 95 % [facility] [place] saturation in Medical Arterial blood Center by Pulse oximetry Heart rate 94 /min 94 /min [facility] Diastolic blood 89 mm[Hg] 89 mm[Hg] [facility] pressure Medical Center Systolic blood 146 mm[Hg] 146 mm[Hg] [facility] Body temperature 36.192753 Kaylie 36.663665 [facility] Respiratory rate 18 /min 18 /min [facility] 97 % 97 % [facility] [place] saturation in Medical Arterial blood Center by Pulse oximetry Heart rate 94 /min 94 /min [facility] Diastolic blood 85 mm[Hg] 85 mm[Hg] [facility] pressure [facility] Center Systolic blood 157 mm[Hg] 157 mm[Hg] [facility] 98 % 98 % [facility] saturation in Medical Arterial blood Center by Pulse oximetry Heart rate 84 /min 84 /min [facility] Body height 175.864245 cm 175.048112 cm [facility] Diastolic blood 84 mm[Hg] 84 mm[Hg] [facility] Systolic blood 142 mm[Hg] 142 mm[Hg] [facility] Body mass index 25.6 kg/m2 25.6 kg/m2 [facility] (BMI) [Ratio] Medical Center Body weight 78.665294 kg 78.429158 kg [facility] Body temperature 36.831675 Kaylie 36.780976 [facility] Respiratory rate 19 /min 19 /min [facility] Body temperature 36.485471 Kaylie 36.062309 [facility] Respiratory rate 18 /min 18 /min [facility] 96 % 96 % [facility] saturation in Medical Arterial blood Center by Pulse oximetry Heart rate 95 /min 95 /min [facility] Diastolic blood 80 mm[Hg] 80 mm[Hg] [facility] Systolic blood 182 mm[Hg] 182 mm[Hg] [facility] Body temperature 36.690587 Kaylie 36.904296 [facility] Respiratory rate 18 /min 18 /min [facility] 96 % 96 % [facility] saturation in Medical Arterial blood Center by Pulse oximetry Heart rate 92 /min 92 /min [facility] Diastolic blood 89 mm[Hg] 89 mm[Hg] [facility] Systolic blood 139 mm[Hg] 139 mm[Hg] [facility] Body temperature 37.524670 Kaylie 37.902346 [facility] Respiratory rate 18 /min 18 /min [facility] 98 % 98 % [place] saturation in Medical Arterial blood Center by Pulse oximetry Heart rate 90 /min 90 /min [facility] Diastolic blood 80 mm[Hg] 80 mm[Hg] [facility] Systolic blood 138 mm[Hg] 138 mm[Hg] [facility] Body temperature 37.657591 Kaylie 37.310668 [facility] Respiratory rate 18 /min 18 /min [facility] 92 % 92 % [facility] saturation in Medical Arterial blood Center by Pulse oximetry Heart rate 87 /min 87 /min [facility] Diastolic blood 66 mm[Hg] 66 mm[Hg] [facility] pressure Medical Center Systolic blood 119 mm[Hg] 119 mm[Hg] [facility] Body temperature 36.827807 Kaylie 36.455153 [facility] Respiratory rate 20 /min 20 /min [facility] Heart rate 94 /min 94 /min [facility] Diastolic blood 73 mm[Hg] 73 mm[Hg] [facility] pressure [facility] Center Systolic blood 119 mm[Hg] 119 mm[Hg] [facility] Body weight 88.691426 kg 88.811456 kg [facility] Body temperature 37.909978 Kaylie 37.556283 [facility] Respiratory rate 18 /min 18 /min [facility] 96 % 96 % [facility] saturation in Medical Arterial blood Center by Pulse oximetry Heart rate 90 /min 90 /min [facility] Body height 175.498565 cm 175.252025 cm [facility] Diastolic blood 72 mm[Hg] 72 mm[Hg] [facility] Systolic blood 135 mm[Hg] 135 mm[Hg] [facility] Body mass index 28.7 kg/m2 28.7 kg/m2 [facility] (BMI) [Ratio] Medical Center Body weight 104.264280 kg 104.848511 kg [facility] Body temperature 37.949061 Kaylie 37.335337 [facility] Respiratory rate 20 /min 20 /min [facility] 93 % 93 % [facility] saturation in Medical Arterial blood Center by Pulse oximetry Heart rate 93 /min 93 /min [facility] Body height 177.891646 cm 177.183272 cm [facility] Diastolic blood 73 mm[Hg] 73 mm[Hg] [facility] pressure [facility] Center Systolic blood 125 mm[Hg] 125 mm[Hg] [facility] Body mass index 33.0 kg/m2 33.0 kg/m2 [facility] (BMI) [Ratio] [facility] Center Body temperature 36.066213 Kaylie 36.890095 [facility] Respiratory rate 18 /min 18 /min [facility] 99 % 99 % [facility] saturation in Medical Arterial blood Center by Pulse oximetry Heart rate 89 /min 89 /min [facility] Diastolic blood 75 mm[Hg] 75 mm[Hg] [facility] pressure [facility] Center Systolic blood 132 mm[Hg] 132 mm[Hg] [facility] Body temperature 36.531901 Kaylie 36.199849 [facility] Respiratory rate 18 /min 18 /min [facility] 99 % 99 % [facility] [place] saturation in Medical Arterial blood Center by Pulse oximetry Heart rate 78 /min 78 /min [facility] Diastolic blood 82 mm[Hg] 82 mm[Hg] [facility] pressure [facility] Center Systolic blood 133 mm[Hg] 133 mm[Hg] [facility] Body weight 104.432507 kg 104.596592 kg [facility] Body temperature 36.998903 Kaylie 36.164930 [facility] Respiratory rate 20 /min 20 /min [facility] 98 % 98 % [facility] [place] saturation in Medical Arterial blood Center by Pulse oximetry Heart rate 98 /min 98 /min [facility] Body height 177.284798 cm 177.550777 cm [facility] Diastolic blood 74 mm[Hg] 74 mm[Hg] [facility] pressure Medical Center Systolic blood 118 mm[Hg] 118 mm[Hg] [facility] Body mass index 33.0 kg/m2 33.0 kg/m2 [facility] (BMI) [Ratio] [facility] Center Body temperature 36.389597 Kaylie 36.526125 [facility] Respiratory rate 18 /min 18 /min [facility] 96 % 96 % [facility] [place] saturation in Medical Arterial blood Center by Pulse oximetry Heart rate 89 /min 89 /min [facility] Diastolic blood 87 mm[Hg] 87 mm[Hg] [facility] pressure [facility] Center Systolic blood 132 mm[Hg] 132 mm[Hg] [facility] Body temperature 37.565760 Kaylie 37.562581 [facility] Respiratory rate 18 /min 18 /min [facility] 99 % 99 % [facility] [place] saturation in Medical Arterial blood Center by Pulse oximetry Heart rate 84 /min 84 /min [facility] Diastolic blood 72 mm[Hg] 72 mm[Hg] [facility] pressure [facility] Center Systolic blood 117 mm[Hg] 117 mm[Hg] [facility] Body temperature 36.546066 Kaylie 36.921198 [facility] Respiratory rate 18 /min 18 /min [facility] 98 % 98 % [facility] [place] saturation in Medical Arterial blood Center by Pulse oximetry Heart rate 88 /min 88 /min [facility] Diastolic blood 95 mm[Hg] 95 mm[Hg] [facility] pressure [facility] Center Systolic blood 135 mm[Hg] 135 mm[Hg] [facility] [place] Body temperature 36.945899 Kaylie 36.153307 [facility] Respiratory rate 18 /min 18 /min [facility] 96 % 96 % [facility] [place] saturation in Medical Arterial blood Center by Pulse oximetry Heart rate 98 /min 98 /min [facility] Diastolic blood 96 mm[Hg] 96 mm[Hg] [facility] Systolic blood 138 mm[Hg] 138 mm[Hg] [facility] Body temperature 36.388285 Kaylie 36.557686 [facility] Respiratory rate 18 /min 18 /min [facility] 98 % 98 % [facility] [place] saturation in Medical Arterial blood Center by Pulse oximetry Heart rate 76 /min 76 /min [facility] Diastolic blood 76 mm[Hg] 76 mm[Hg] [facility] Systolic blood 132 mm[Hg] 132 mm[Hg] [facility] Body temperature 36.409426 Kaylie 36.974109 [facility] Respiratory rate 18 /min 18 /min [facility] 98 % 98 % [facility] [place] saturation in Medical Arterial blood Center by Pulse oximetry Heart rate 76 /min 76 /min [facility] Diastolic blood 78 mm[Hg] 78 mm[Hg] [facility] Systolic blood 112 mm[Hg] 112 mm[Hg] [facility] Heart rate 105 /min 105 /min [facility] Body height 177.461780 cm 177.764408 cm [facility] Diastolic blood 65 mm[Hg] 65 mm[Hg] [facility] pressure [facility] Center Systolic blood 124 mm[Hg] 124 mm[Hg] [facility] Body mass index 33.0 kg/m2 33.0 kg/m2 [facility] (BMI) [Ratio] Medical Center Body weight 104.957282 kg 104.969144 kg [facility] Body temperature 37.528078 Kaylie 37.164161 [facility] Respiratory rate 20 /min 20 /min [facility] 92 % 92 % [facility] [place] saturation in Medical Arterial blood Center by Pulse oximetry Body temperature 37.819721 Kaylie 37.392277 [facility] Respiratory rate 18 /min 18 /min [facility] 93 % 93 % [facility] [place] saturation in Medical Arterial blood Center by Pulse oximetry Heart rate 101 /min 101 /min [facility] Diastolic blood 68 mm[Hg] 68 mm[Hg] [facility] Systolic blood 108 mm[Hg] 108 mm[Hg] [facility] Body weight 79.988413 kg 79.948608 kg [facility] Body temperature 37.158635 Kaylie 37.910367 [facility] Respiratory rate 18 /min 18 /min [facility] 95 % 95 % [facility] [place] saturation in Medical Arterial blood Center by Pulse oximetry Heart rate 101 /min 101 /min [facility] Body height 175.646877 cm 175.204441 cm [facility] Diastolic blood 66 mm[Hg] 66 mm[Hg] [facility] pressure [facility] Center Systolic blood 98 mm[Hg] 98 mm[Hg] [facility] Body mass index 25.8 kg/m2 25.8 kg/m2 [facility] (BMI) [Ratio] [facility] Center Body temperature 36.374356 Kaylie 36.610241 [facility] Respiratory rate 18 /min 18 /min [facility] 98 % 98 % [place] saturation in Medical Arterial blood Center by Pulse oximetry Heart rate 79 /min 79 /min [facility] Diastolic blood 69 mm[Hg] 69 mm[Hg] [facility] Systolic blood 103 mm[Hg] 103 mm[Hg] [facility] Body temperature 36.677443 Kaylie 36.199547 [facility] Respiratory rate 18 /min 18 /min [facility] 98 % 98 % [facility] [place] saturation in Medical Arterial blood Center by Pulse oximetry Heart rate 78 /min 78 /min [facility] Diastolic blood 76 mm[Hg] 76 mm[Hg] [facility] Systolic blood 122 mm[Hg] 122 mm[Hg] [facility] Body temperature 36.503677 Kaylie 36.389020 [facility] Respiratory rate 19 /min 19 /min [facility] 96 % 96 % [facility] [place] saturation in Medical Arterial blood Center by Pulse oximetry Heart rate 86 /min 86 /min [facility] Diastolic blood 63 mm[Hg] 63 mm[Hg] [facility] [place] Systolic blood 103 mm[Hg] 103 mm[Hg] [facility] Body temperature 36.320875 Kaylie 36.817888 [facility] Respiratory rate 18 /min 18 /min [facility] 98 % 98 % [facility] [place] saturation in Medical Arterial blood Center by Pulse oximetry Heart rate 84 /min 84 /min [facility] Diastolic blood 67 mm[Hg] 67 mm[Hg] [facility] [place] Systolic blood 119 mm[Hg] 119 mm[Hg] [facility] Body temperature 37.477261 Kaylie 37.301790 [facility] Respiratory rate 18 /min 18 /min [facility] 98 % 98 % [facility] [place] saturation in Medical Arterial blood Center by Pulse oximetry Heart rate 91 /min 91 /min [facility] Diastolic blood 60 mm[Hg] 60 mm[Hg] [facility] Systolic blood 103 mm[Hg] 103 mm[Hg] [facility] [place] Body temperature 36.659408 Kaylie 36.830278 [facility] Respiratory rate 18 /min 18 /min [facility] 98 % 98 % [facility] [place] saturation in Medical Arterial blood Center by Pulse oximetry Heart rate 76 /min 76 /min [facility] Diastolic blood 76 mm[Hg] 76 mm[Hg] [facility] pressure [facility] Center Systolic blood 124 mm[Hg] 124 mm[Hg] [facility] Body temperature 36.150579 Kaylie 36.263387 [facility] Respiratory rate 18 /min 18 /min [facility] 98 % 98 % [facility] saturation in Medical Arterial blood Center by Pulse oximetry Heart rate 76 /min 76 /min [facility] Diastolic blood 76 mm[Hg] 76 mm[Hg] [facility] Systolic blood 124 mm[Hg] 124 mm[Hg] [facility] Body weight 104.727237 kg 104.399646 kg [facility] Body temperature 36.276176 Kaylie 36.339906 [facility] Respiratory rate 18 /min 18 /min [facility] 96 % 96 % [facility] saturation in Medical Arterial blood Center by Pulse oximetry Heart rate 90 /min 90 /min [facility] Body height 177.471309 cm 177.002882 cm [facility] Diastolic blood 76 mm[Hg] 76 mm[Hg] [facility] Systolic blood 116 mm[Hg] 116 mm[Hg] [facility] [place] Body mass index 33.0 kg/m2 33.0 kg/m2 [facility] (BMI) [Ratio] [facility] Center Body temperature 36.089386 Kaylie 36.563719 [facility] Respiratory rate 18 /min 18 /min [facility] Heart rate 85 /min 85 /min [facility] Diastolic blood 82 mm[Hg] 82 mm[Hg] [facility] Systolic blood 141 mm[Hg] 141 mm[Hg] [facility] Body temperature 36.711216 Kaylie 36.496191 [facility] Respiratory rate 18 /min 18 /min [facility] Heart rate 84 /min 84 /min [facility] Diastolic blood 81 mm[Hg] 81 mm[Hg] [facility] Systolic blood 139 mm[Hg] 139 mm[Hg] [facility] Body weight 95.038038 kg 95.700712 kg [facility] Body temperature 36.043741 Kaylie 36.140050 [facility] Respiratory rate 17 /min 17 /min [facility] 99 % 99 % [place] saturation in Medical Arterial blood Center by Pulse oximetry Heart rate 86 /min 86 /min [facility] Body height 177.179936 cm 177.264362 cm [facility] [place] Diastolic blood 87 mm[Hg] 87 mm[Hg] [facility] pressure [facility] Center Systolic blood 137 mm[Hg] 137 mm[Hg] [facility] Body mass index 30.1 kg/m2 30.1 kg/m2 [facility] (BMI) [Ratio] [facility] Center Body temperature 37.581708 Kaylie 37.703122 [facility] Respiratory rate 18 /min 18 /min [facility] 94 % 94 % [facility] [place] saturation in Medical Arterial blood Center by Pulse oximetry Heart rate 103 /min 103 /min [facility] Diastolic blood 72 mm[Hg] 72 mm[Hg] [facility] Systolic blood 111 mm[Hg] 111 mm[Hg] [facility] Body temperature 36.811680 Kaylie 36.841826 [facility] Respiratory rate 16 /min 16 /min [facility] 96 % 96 % [place] saturation in [facility] Ar[facility] Center by Pulse oximetry Heart rate 97 /min 97 /min [facility] Diastolic blood 77 mm[Hg] 77 mm[Hg] [facility] pressure Medical Center Systolic blood 133 mm[Hg] 133 mm[Hg] [facility] Body temperature 36.473316 Kaylie 36.111517 [facility] Respiratory rate 17 /min 17 /min [facility] 94 % 94 % [facility] [place] saturation in Medical Arterial blood Center by Pulse oximetry Heart rate 92 /min 92 /min [facility] Diastolic blood 80 mm[Hg] 80 mm[Hg] [facility] Systolic blood 122 mm[Hg] 122 mm[Hg] [facility] Body weight 113.104680 kg 113.829926 kg [facility] Body temperature 36.396334 Kaylie 36.283142 [facility] Respiratory rate 16 /min 16 /min [facility] 94 % 94 % [place] saturation in Medical Arterial blood Center by Pulse oximetry Heart rate 90 /min 90 /min [facility] Body height 177.551104 cm 177.323210 cm [facility] Diastolic blood 64 mm[Hg] 64 mm[Hg] [facility] pressure [facility] Center Systolic blood 128 mm[Hg] 128 mm[Hg] [facility] Body mass index 35.8 kg/m2 35.8 kg/m2 [facility] (BMI) [Ratio] [facility] Center Body temperature 36.935985 Kaylie 36.703867 [facility] Respiratory rate 18 /min 18 /min [facility] 95 % 95 % [place] saturation in Medical Arterial blood Center by Pulse oximetry Heart rate 76 /min 76 /min [facility] Diastolic blood 76 mm[Hg] 76 mm[Hg] [facility] Systolic blood 128 mm[Hg] 128 mm[Hg] [facility] Body temperature 36.315697 Kaylie 36.232936 [facility] Respiratory rate 18 /min 18 /min [facility] 97 % 97 % [place] saturation in Medical Arterial blood Center by Pulse oximetry Heart rate 78 /min 78 /min [facility] Diastolic blood 70 mm[Hg] 70 mm[Hg] [facility] Systolic blood 124 mm[Hg] 124 mm[Hg] [facility] [place] Body weight 86.679182 kg 86.938853 kg [facility] Body temperature 36.953443 Kaylie 36.082082 [facility] Respiratory rate 19 /min 19 /min [facility] 97 % 97 % [place] saturation in Medical Arterial blood Center by Pulse oximetry Heart rate 74 /min 74 /min [facility] Body height 180.961676 cm 180.116570 cm [facility] Diastolic blood 68 mm[Hg] 68 mm[Hg] [facility] Systolic blood 128 mm[Hg] 128 mm[Hg] [facility] Body mass index 26.4 kg/m2 26.4 kg/m2 [facility] (BMI) [Ratio] [facility] Body temperature 36.712341 Kaylie 36.766189 [facility] Respiratory rate 18 /min 18 /min [facility] 98 % 98 % [place] saturation in Medical Arterial blood Center by Pulse oximetry Heart rate 91 /min 91 /min [facility] Diastolic blood 65 mm[Hg] 65 mm[Hg] [facility] pressure Medical Center Systolic blood 129 mm[Hg] 129 mm[Hg] [facility] Body temperature 36.840468 Kaylie 36.318595 [facility] Respiratory rate 16 /min 16 /min [facility] 98 % 98 % [place] saturation in Medical Arterial blood Center by Pulse oximetry Heart rate 82 /min 82 /min [facility] Diastolic blood 64 mm[Hg] 64 mm[Hg] [facility] Systolic blood 123 mm[Hg] 123 mm[Hg] [facility] Body temperature 36.126456 Kaylie 36.585417 [facility] Respiratory rate 14 /min 14 /min [facility] 95 % 95 % [place] saturation in Medical Arterial blood Center by Pulse oximetry Heart rate 61 /min 61 /min [facility] Diastolic blood 74 mm[Hg] 74 mm[Hg] [facility] Systolic blood 124 mm[Hg] 124 mm[Hg] [facility] Body temperature 37.868443 Kaylie 37.199541 [facility] Respiratory rate 16 /min 16 /min [facility] 99 % 99 % [place] saturation in Medical Arterial blood Center by Pulse oximetry Heart rate 89 /min 89 /min [facility] Diastolic blood 76 mm[Hg] 76 mm[Hg] [facility] pressure Medical Center Systolic blood 125 mm[Hg] 125 mm[Hg] [facility] Body temperature 37.097214 Kaylie 37.802404 [facility] Respiratory rate 14 /min 14 /min [facility] 99 % 99 % [place] saturation in Medical Arterial blood Center by Pulse oximetry Heart rate 91 /min 91 /min [facility] Diastolic blood 80 mm[Hg] 80 mm[Hg] [facility] Systolic blood 120 mm[Hg] 120 mm[Hg] [facility] Body temperature 36.039659 Kaylie 36.259696 [facility] Respiratory rate 18 /min 18 /min [facility] 99 % 99 % [place] saturation in Medical Arterial blood Center by Pulse oximetry Heart rate 93 /min 93 /min [facility] Diastolic blood 78 mm[Hg] 78 mm[Hg] [facility] pressure Medical Center Systolic blood 115 mm[Hg] 115 mm[Hg] [facility] Body temperature 36.049428 Kaylie 36.177183 [facility] Respiratory rate 18 /min 18 /min [facility] 95 % 95 % [place] saturation in Medical Arterial blood Center by Pulse oximetry Heart rate 83 /min 83 /min [facility] Diastolic blood 69 mm[Hg] 69 mm[Hg] [facility] [place] Systolic blood 102 mm[Hg] 102 mm[Hg] [facility] Body temperature 37.173501 Kaylie 37.654732 [facility] Respiratory rate 18 /min 18 /min [facility] 98 % 98 % [place] saturation in Medical Arterial blood Center by Pulse oximetry Heart rate 91 /min 91 /min [facility] Diastolic blood 65 mm[Hg] 65 mm[Hg] [facility] [place] Systolic blood 101 mm[Hg] 101 mm[Hg] [facility] Body temperature 37.838379 Kaylie 37.776059 [facility] Respiratory rate 18 /min 18 /min [facility] 96 % 96 % [place] saturation in Medical Arterial blood Center by Pulse oximetry Heart rate 94 /min 94 /min [facility] Diastolic blood 87 mm[Hg] 87 mm[Hg] [facility] Systolic blood 156 mm[Hg] 156 mm[Hg] [facility] [place] Body temperature 36.136268 Kaylie 36.474948 [facility] Respiratory rate 17 /min 17 /min [facility] 96 % 96 % [place] saturation in Medical Arterial blood Center by Pulse oximetry Heart rate 95 /min 95 /min [facility] Diastolic blood 91 mm[Hg] 91 mm[Hg] [facility] pressure [facility] Center Systolic blood 149 mm[Hg] 149 mm[Hg] [facility] Body temperature 36.599806 Kaylie 36.475370 [facility] Respiratory rate 17 /min 17 /min [facility] 96 % 96 % [place] saturation in Medical Arterial blood Center by Pulse oximetry Heart rate 92 /min 92 /min [facility] Diastolic blood 86 mm[Hg] 86 mm[Hg] [facility] Systolic blood 157 mm[Hg] 157 mm[Hg] [facility] Body temperature 36.853490 Kaylie 36.419573 [facility] Respiratory rate 19 /min 19 /min [facility] 99 % 99 % [place] saturation in Medical Arterial blood Center by Pulse oximetry Heart rate 100 /min 100 /min [facility] Diastolic blood 91 mm[Hg] 91 mm[Hg] [facility] [place] Systolic blood 160 mm[Hg] 160 mm[Hg] [facility] Body temperature 36.008894 Kaylie 36.691199 [facility] Respiratory rate 22 /min 22 /min [facility] 95 % 95 % [place] saturation in Medical Arterial blood Center by Pulse oximetry Heart rate 82 /min 82 /min [facility] Diastolic blood 91 mm[Hg] 91 mm[Hg] [facility] Systolic blood 143 mm[Hg] 143 mm[Hg] [facility] Body temperature 37.714525 Kaylie 37.435051 [facility] Respiratory rate 20 /min 20 /min [facility] 95 % 95 % [place] saturation in Medical Arterial blood Center by Pulse oximetry Heart rate 111 /min 111 /min [facility] Diastolic blood 89 mm[Hg] 89 mm[Hg] [facility] Systolic blood 128 mm[Hg] 128 mm[Hg] [facility] Respiratory rate 20 /min 20 /min [facility] 95 % 95 % [place] saturation in Medical Arterial blood Center by Pulse oximetry Heart rate 113 /min 113 /min [facility] Body height 177.915587 cm 177.896996 cm [facility] Diastolic blood 68 mm[Hg] 68 mm[Hg] [facility] Systolic blood 133 mm[Hg] 133 mm[Hg] [facility] Body mass index 31.6 kg/m2 31.6 kg/m2 [facility] (BMI) [Ratio] Medical Center Body weight 100.949819 kg 100.810520 kg [facility] Body temperature 37.251997 Kaylie 37.386677 [facility] Body temperature 36.828828 Kaylie 36.621740 [facility] Respiratory rate 18 /min 18 /min [facility] 97 % 97 % [place] saturation in Medical Arterial blood Center by Pulse oximetry Heart rate 67 /min 67 /min [facility] Diastolic blood 78 mm[Hg] 78 mm[Hg] [facility] Systolic blood 134 mm[Hg] 134 mm[Hg] [facility] Body weight 95.506551 kg 95.700114 kg [facility] Body temperature 36.137680 Kaylie 36.320760 [facility] Respiratory rate 20 /min 20 /min [facility] 100 % 100 % [place] saturation in Medical Arterial blood Center by Pulse oximetry Heart rate 84 /min 84 /min [facility] Body height 177.417328 cm 177.498204 cm [facility] Diastolic blood 90 mm[Hg] 90 mm[Hg] [facility] Systolic blood 130 mm[Hg] 130 mm[Hg] [facility] Body mass index 30.0 kg/m2 30.0 kg/m2 [facility] (BMI) [Ratio] [facility] Center Body temperature 36.612637 Kaylie 36.212303 [facility] Respiratory rate 18 /min 18 /min [facility] 95 % 95 % [place] saturation in Medical Arterial blood Center by Pulse oximetry Heart rate 73 /min 73 /min [facility] Diastolic blood 71 mm[Hg] 71 mm[Hg] [facility] pressure [facility] Center Systolic blood 139 mm[Hg] 139 mm[Hg] [facility] Body weight 100.181465 kg 100.281740 kg [facility] Body temperature 36.079348 Kaylie 36.709114 [facility] Respiratory rate 18 /min 18 /min [facility] 92 % 92 % [place] saturation in Medical Arterial blood Center by Pulse oximetry Heart rate 102 /min 102 /min [facility] Body height 177.743110 cm 177.678104 cm [facility] Diastolic blood 56 mm[Hg] 56 mm[Hg] [facility] Systolic blood 109 mm[Hg] 109 mm[Hg] [facility] Body mass index 31.6 kg/m2 31.6 kg/m2 [facility] (BMI) [Ratio] [facility] Center Body temperature 36.509965 Kaylie 36.080721 [facility] Respiratory rate 18 /min 18 /min [facility] 98 % 98 % [place] saturation in Medical Arterial blood Center by Pulse oximetry Heart rate 88 /min 88 /min [facility] Diastolic blood 78 mm[Hg] 78 mm[Hg] [facility] Systolic blood 148 mm[Hg] 148 mm[Hg] [facility] Body temperature 36.491887 Kaylie 36.532124 [facility] Respiratory rate 18 /min 18 /min [facility] 98 % 98 % [place] saturation in Medical Arterial blood Center by Pulse oximetry Heart rate 98 /min 98 /min [facility] Diastolic blood 68 mm[Hg] 68 mm[Hg] [facility] Systolic blood 113 mm[Hg] 113 mm[Hg] [facility] Body temperature 37.705147 Kaylie 37.523493 [facility] Respiratory rate 18 /min 18 /min [facility] 95 % 95 % [place] saturation in Medical Arterial blood Center by Pulse oximetry Heart rate 84 /min 84 /min [facility] Diastolic blood 82 mm[Hg] 82 mm[Hg] [facility] Systolic blood 131 mm[Hg] 131 mm[Hg] [facility] Body temperature 37.275290 Kaylie 37.062349 [facility] Respiratory rate 18 /min 18 /min [facility] 94 % 94 % [place] saturation in Medical Arterial blood Center by Pulse oximetry Heart rate 88 /min 88 /min [facility] Diastolic blood 91 mm[Hg] 91 mm[Hg] [facility] pressure [facility] Center Systolic blood 134 mm[Hg] 134 mm[Hg] [facility] Body weight 102.101806 kg 102.459767 kg [facility] Respiratory rate 18 /min 18 /min [facility] 93 % 93 % [place] saturation in Medical Arterial blood Center by Pulse oximetry Heart rate 98 /min 98 /min [facility] Body height 182.018673 cm 182.596428 cm [facility] Diastolic blood 80 mm[Hg] 80 mm[Hg] [facility] pressure [facility] Center Systolic blood 178 mm[Hg] 178 mm[Hg] [facility] Body mass index 30.5 kg/m2 30.5 kg/m2 [facility] (BMI) [Ratio] [facility] Body temperature 36.937496 Kaylie 36.548875 [facility] Respiratory rate 18 /min 18 /min [facility] 95 % 95 % [place] saturation in Medical Arterial blood Center by Pulse oximetry Heart rate 96 /min 96 /min [facility] Diastolic blood 89 mm[Hg] 89 mm[Hg] [facility] pressure [facility] Center Systolic blood 114 mm[Hg] 114 mm[Hg] [facility] Body temperature 36.146560 Kaylie 36.517667 [facility] Respiratory rate 17 /min 17 /min [facility] 96 % 96 % [place] saturation in Medical Arterial blood Center by Pulse oximetry Heart rate 98 /min 98 /min [facility] Diastolic blood 68 mm[Hg] 68 mm[Hg] [facility] pressure [facility] Center Systolic blood 128 mm[Hg] 128 mm[Hg] [facility] pressure [facility] 97 % 97 % [place] saturation in Medical Arterial blood Center by Pulse oximetry Heart rate 116 /min 116 /min [facility] Diastolic blood 61 mm[Hg] 61 mm[Hg] [facility] pressure [facility] Center Systolic blood 117 mm[Hg] 117 mm[Hg] [facility] Respiratory rate 18 /min 18 /min [facility] Body temperature 36.998542 Kaylie 36.502291 [facility] Body temperature 36.387559 Kaylie 36.890625 [facility] Respiratory rate 18 /min 18 /min [facility] 97 % 97 % [place] saturation in Medical Arterial blood Center by Pulse oximetry Heart rate 76 /min 76 /min [facility] Diastolic blood 76 mm[Hg] 76 mm[Hg] [facility] pressure [facility] Center Systolic blood 138 mm[Hg] 138 mm[Hg] [facility] Body temperature 36.269980 Kaylie 36.797349 [facility] Respiratory rate 18 /min 18 /min [facility] 98 % 98 % [facility] saturation in Medical Arterial blood Center by Pulse oximetry Heart rate 85 /min 85 /min [facility] Diastolic blood 95 mm[Hg] 95 mm[Hg] [facility] Systolic blood 154 mm[Hg] 154 mm[Hg] [facility] Body weight 86.162527 kg 86.802278 kg [facility] [place] Body temperature 36.175538 Kaylie 36.948731 [facility] Respiratory rate 20 /min 20 /min [facility] 95 % 95 % [facility] saturation in Medical Arterial blood Center by Pulse oximetry Heart rate 76 /min 76 /min [facility] Body height 170.284455 cm 170.856596 cm [facility] Diastolic blood 74 mm[Hg] 74 mm[Hg] [facility] Systolic blood 120 mm[Hg] 120 mm[Hg] [facility] Body mass index 29.7 kg/m2 29.7 kg/m2 [facility] (BMI) [Ratio] [facility] Body temperature 36.706187 Kaylie 36.204410 [facility] Respiratory rate 16 /min 16 /min [facility] 95 % 95 % [facility] saturation in Medical Arterial blood Center by Pulse oximetry Heart rate 92 /min 92 /min [facility] Diastolic blood 68 mm[Hg] 68 mm[Hg] [facility] Systolic blood 112 mm[Hg] 112 mm[Hg] [facility] Body temperature 37.376789 Kaylie 37.522847 [facility] Respiratory rate 18 /min 18 /min [facility] 95 % 95 % [place] saturation in Medical Arterial blood Center by Pulse oximetry Heart rate 88 /min 88 /min [facility] Diastolic blood 57 mm[Hg] 57 mm[Hg] [facility] Systolic blood 107 mm[Hg] 107 mm[Hg] [facility] Body weight 120.139074 kg 120.446965 kg [facility] Body temperature 36.643062 Kaylie 36.513252 [facility] Respiratory rate 18 /min 18 /min [facility] 98 % 98 % [place] saturation in Medical Arterial blood Center by Pulse oximetry Heart rate 84 /min 84 /min [facility] Body height 182.633373 cm 182.826674 cm [facility] Diastolic blood 78 mm[Hg] 78 mm[Hg] [facility] Systolic blood 148 mm[Hg] 148 mm[Hg] [facility] Body mass index 35.8 kg/m2 35.8 kg/m2 [facility] (BMI) [Ratio] [facility] Body temperature 37.485394 Kaylie 37.152711 [facility] Respiratory rate 18 /min 18 /min [facility] 95 % 95 % [place] saturation in Medical Arterial blood Center by Pulse oximetry Heart rate 94 /min 94 /min [facility] Diastolic blood 56 mm[Hg] 56 mm[Hg] [facility] Systolic blood 110 mm[Hg] 110 mm[Hg] [facility] Body temperature 38.914996 Kaylie 38.590552 [facility] Respiratory rate 18 /min 18 /min [facility] 97 % 97 % [place] saturation in Medical Arterial blood Center by Pulse oximetry Heart rate 98 /min 98 /min [facility] Diastolic blood 87 mm[Hg] 87 mm[Hg] [facility] Systolic blood 140 mm[Hg] 140 mm[Hg] [facility] Body temperature 36.317370 Kaylie 36.644254 [facility] Respiratory rate 16 /min 16 /min [facility] 98 % 98 % [place] saturation in Medical Arterial blood Center by Pulse oximetry Heart rate 87 /min 87 /min [facility] Diastolic blood 84 mm[Hg] 84 mm[Hg] [facility] Systolic blood 138 mm[Hg] 138 mm[Hg] [facility] [place] Body temperature 37.665518 Kaylie 37.364850 [facility] Respiratory rate 18 /min 18 /min [facility] 97 % 97 % [place] saturation in Medical Arterial blood Center by Pulse oximetry Heart rate 88 /min 88 /min [facility] Diastolic blood 72 mm[Hg] 72 mm[Hg] [facility] Systolic blood 134 mm[Hg] 134 mm[Hg] [facility] Body temperature 36.998481 Kaylie 36.957054 [facility] Respiratory rate 18 /min 18 /min [facility] 98 % 98 % [place] saturation in Medical Arterial blood Center by Pulse oximetry Heart rate 71 /min 71 /min [facility] Diastolic blood 68 mm[Hg] 68 mm[Hg] [facility] Systolic blood 133 mm[Hg] 133 mm[Hg] [facility] Body temperature 35.440651 Kaylie 35.960378 [facility] Respiratory rate 17 /min 17 /min [facility] 95 % 95 % [place] saturation in Medical Arterial blood Center by Pulse oximetry Heart rate 93 /min 93 /min [facility] Diastolic blood 105 mm[Hg] 105 mm[Hg] [facility] Systolic blood 180 mm[Hg] 180 mm[Hg] [facility] Body temperature 36.548214 Kaylie 36.183449 [facility] Respiratory rate 20 /min 20 /min [facility] 97 % 97 % [place] saturation in Medical Arterial blood Center by Pulse oximetry Heart rate 89 /min 89 /min [facility] Diastolic blood 92 mm[Hg] 92 mm[Hg] [facility] Systolic blood 158 mm[Hg] 158 mm[Hg] [facility] Body temperature 36.698002 Kaylie 36.471631 [facility] Respiratory rate 18 /min 18 /min [facility] 96 % 96 % [place] saturation in Medical Arterial blood Center by Pulse oximetry Heart rate 86 /min 86 /min [facility] Diastolic blood 87 mm[Hg] 87 mm[Hg] [facility] pressure [facility] Center Systolic blood 163 mm[Hg] 163 mm[Hg] [facility] Body temperature 36.888587 Kaylie 36.819169 [facility] Respiratory rate 20 /min 20 /min [facility] 98 % 98 % [place] saturation in Medical Arterial blood Center by Pulse oximetry Heart rate 89 /min 89 /min [facility] Diastolic blood 103 mm[Hg] 103 mm[Hg] [facility] Systolic blood 154 mm[Hg] 154 mm[Hg] [facility] Heart rate 91 /min 91 /min [facility] Diastolic blood 110 mm[Hg] 110 mm[Hg] [facility] Systolic blood 167 mm[Hg] 167 mm[Hg] [facility] Body temperature 36.653515 Kaylie 36.762666 [facility] Respiratory rate 18 /min 18 /min [facility] 98 % 98 % [place] saturation in Medical Arterial blood Center by Pulse [facility]ximetry Body temperature 36.150235 Kaylie 36.927307 [facility] Respiratory rate 20 /min 20 /min [facility] 95 % 95 % [place] saturation in Medical Arterial blood Center by Pulse oximetry Heart rate 96 /min 96 /min [facility] Diastolic blood 146 mm[Hg] 146 mm[Hg] [facility] Systolic blood 211 mm[Hg] 211 mm[Hg] [facility] Body temperature 36.621081 Kaylie 36.833357 [facility] Respiratory rate 18 /min 18 /min [facility] 97 % 97 % [place] saturation in Medical Arterial blood Center by Pulse oximetry Heart rate 79 /min 79 /min [facility] Diastolic blood 106 mm[Hg] 106 mm[Hg] [facility] [place] Systolic blood 179 mm[Hg] 179 mm[Hg] [facility] Body temperature 37.197341 Kaylie 37.263706 [facility] Respiratory rate 18 /min 18 /min [facility] 96 % 96 % [place] saturation in Medical Arterial blood Center by Pulse oximetry Heart rate 81 /min 81 /min [facility] Diastolic blood 82 mm[Hg] 82 mm[Hg] [facility] [facility] [place] Systolic blood 151 mm[Hg] 151 mm[Hg] [facility] Body temperature 36.028479 Kaylie 36.846848 [facility] Respiratory rate 18 /min 18 /min [facility] Heart rate 77 /min 77 /min [facility] Body temperature 37.435825 Kaylie 37.039952 [facility] Respiratory rate 18 /min 18 /min [facility] Oxygen 97 % 97 % [facility] [place] saturation in Medical Arterial blood Center by Pulse oximetry Heart rate 80 /min 80 /min [facility] Diastolic blood 89 mm[Hg] 89 mm[Hg] [facility] Systolic blood 153 mm[Hg] 153 mm[Hg] [facility] Oxygen 97 % 97 % [facility] [place] saturation in Medical Arterial blood Center by Pulse oximetry Diastolic blood 90 mm[Hg] 90 mm[Hg] [facility] [place] Systolic blood 177 mm[Hg] 177 mm[Hg] [facility] Body temperature 36.730242 Kaylie 36.879758 [facility] Respiratory rate 17 /min 17 /min [facility] Oxygen 95 % 95 % [facility] [place] saturation in Medical Arterial blood Center by Pulse oximetry Heart rate 67 /min 67 /min [facility] Diastolic blood 98 mm[Hg] 98 mm[Hg] [facility] Systolic blood 160 mm[Hg] 160 mm[Hg] [facility] [place] Body weight 100.122027 kg 100.712079 kg [facility] Body temperature 36.150336 Kaylie 36.850367 [facility] Respiratory rate 19 /min 19 /min [facility] 98 % 98 % [facility] [place] saturation in Medical Arterial blood Center by Pulse oximetry Heart rate 92 /min 92 /min [facility] Body height 177.589873 cm 177.634080 cm [facility] Diastolic blood 103 mm[Hg] 103 mm[Hg] [facility] pressure [facility] Center Systolic blood 166 mm[Hg] 166 mm[Hg] [facility] Body mass index 31.6 kg/m2 31.6 kg/m2 [facility] (BMI) [Ratio] [facility] Body temperature 36.452341 Kaylie 36.882780 [facility] Respiratory rate 18 /min 18 /min [facility] 96 % 96 % [facility] [place] saturation in Medical Arterial blood Center by Pulse oximetry Heart rate 90 /min 90 /min [facility] Diastolic blood 74 mm[Hg] 74 mm[Hg] [facility] Systolic blood 145 mm[Hg] 145 mm[Hg] [facility] Body temperature 36.795152 Kaylie 36.840852 [facility] Respiratory rate 18 /min 18 /min [facility] 97 % 97 % [facility] [place] saturation in Medical Arterial blood Center by Pulse oximetry Heart rate 92 /min 92 /min [facility] Diastolic blood 78 mm[Hg] 78 mm[Hg] [facility] pressure [facility] Center Systolic blood 147 mm[Hg] 147 mm[Hg] [facility] Body temperature 37.720996 Kaylie 37.422411 [facility] Respiratory rate 19 /min 19 /min [facility] 96 % 96 % [facility] [place] saturation in Medical Arterial blood Center by Pulse oximetry Heart rate 90 /min 90 /min [facility] Diastolic blood 74 mm[Hg] 74 mm[Hg] [facility] Systolic blood 132 mm[Hg] 132 mm[Hg] [facility] Body temperature 36.377973 Kaylie 36.833486 [facility] Respiratory rate 18 /min 18 /min [facility] 92 % 92 % [facility] [place] saturation in Medical Arterial blood Center by Pulse oximetry Heart rate 93 /min 93 /min [facility] Diastolic blood 78 mm[Hg] 78 mm[Hg] [facility] Systolic blood 130 mm[Hg] 130 mm[Hg] [facility] Body temperature 36.869373 Kaylie 36.673643 [facility] Respiratory rate 17 /min 17 /min [facility] 97 % 97 % [place] saturation in Medical Arterial blood Center by Pulse oximetry Heart rate 75 /min 75 /min [facility] Diastolic blood 65 mm[Hg] 65 mm[Hg] [facility] pressure [facility] Center Systolic blood 139 mm[Hg] 139 mm[Hg] [facility] Body weight 104.034293 kg 104.283179 kg [facility] Body temperature 36.980431 Kaylie 36.185306 [facility] Respiratory rate 17 /min 17 /min [facility] 92 % 92 % [place] saturation in Medical Arterial blood Center by Pulse oximetry Heart rate 88 /min 88 /min [facility] Body height 177.397645 cm 177.742753 cm [facility] Diastolic blood 74 mm[Hg] 74 mm[Hg] [facility] Systolic blood 126 mm[Hg] 126 mm[Hg] [facility] Body mass index 33.0 kg/m2 33.0 kg/m2 [facility] (BMI) [Ratio] [facility] Body temperature 37.317349 Kaylie 37.042055 [facility] Respiratory rate 18 /min 18 /min [facility] 96 % 96 % [place] saturation in Medical Arterial blood Center by Pulse oximetry Heart rate 93 /min 93 /min [facility] Diastolic blood 78 mm[Hg] 78 mm[Hg] [facility] Systolic blood 138 mm[Hg] 138 mm[Hg] [facility] Body temperature 36.832483 Kaylie 36.805963 [facility] Respiratory rate 18 /min 18 /min [facility] 97 % 97 % [place] saturation in Medical Arterial blood Center by Pulse oximetry Heart rate 89 /min 89 /min [facility] Diastolic blood 86 mm[Hg] 86 mm[Hg] [facility] Systolic blood 142 mm[Hg] 142 mm[Hg] [facility] Body temperature 36.882349 Kaylie 36.366345 [facility] Respiratory rate 18 /min 18 /min [facility] 98 % 98 % [facility] [place] saturation in Medical Arterial blood Center by Pulse oximetry Heart rate 75 /min 75 /min [facility] Diastolic blood 65 mm[Hg] 65 mm[Hg] [facility] pressure [facility] Center Systolic blood 131 mm[Hg] 131 mm[Hg] [facility] Body temperature 36.372145 Kaylie 36.294915 [facility] Respiratory rate 17 /min 17 /min [facility] 97 % 97 % [facility] [place] saturation in Medical Arterial blood Center by Pulse oximetry Heart rate 81 /min 81 /min [facility] Diastolic blood 73 mm[Hg] 73 mm[Hg] [facility] Systolic blood 139 mm[Hg] 139 mm[Hg] [facility] Body temperature 36.743981 Kaylie 36.467597 [facility] Respiratory rate 18 /min 18 /min [facility] 98 % 98 % [facility] [place] saturation in Medical Arterial blood Center by Pulse oximetry Heart rate 88 /min 88 /min [facility] Diastolic blood 72 mm[Hg] 72 mm[Hg] [facility] pressure [facility] Center Systolic blood 148 mm[Hg] 148 mm[Hg] [facility] [place] Body temperature 36.128550 Kaylie 36.363801 [facility] Respiratory rate 17 /min 17 /min [facility] 95 % 95 % [facility] [place] saturation in Medical Arterial blood Center by Pulse oximetry Heart rate 84 /min 84 /min [facility] Diastolic blood 83 mm[Hg] 83 mm[Hg] [facility] Systolic blood 138 mm[Hg] 138 mm[Hg] [facility] Body temperature 37.116883 Kaylie 37.191713 [facility] Respiratory rate 18 /min 18 /min [facility] 95 % 95 % [place] saturation in Medical Arterial blood Center by Pulse oximetry Heart rate 88 /min 88 /min [facility] Diastolic blood 78 mm[Hg] 78 mm[Hg] [facility] Systolic blood 143 mm[Hg] 143 mm[Hg] [facility] Body temperature 36.097889 Kaylie 36.361269 [facility] Respiratory rate 18 /min 18 /min [facility] 95 % 95 % [place] saturation in Medical Arterial blood Center by Pulse oximetry Heart rate 87 /min 87 /min [facility] Diastolic blood 98 mm[Hg] 98 mm[Hg] [facility] Systolic blood 122 mm[Hg] 122 mm[Hg] [facility] Body temperature 36.623748 Kaylie 36.197097 [facility] Respiratory rate 16 /min 16 /min [facility] 95 % 95 % [place] saturation in Medical Arterial blood Center by Pulse oximetry Heart rate 68 /min 68 /min [facility] Diastolic blood 60 mm[Hg] 60 mm[Hg] [facility] [place] Systolic blood 118 mm[Hg] 118 mm[Hg] [facility] Body temperature 37.120206 Kaylie 37.747961 [facility] Respiratory rate 20 /min 20 /min [facility] 97 % 97 % [place] saturation in Medical Arterial blood Center by Pulse oximetry Heart rate 96 /min 96 /min [facility] Diastolic blood 95 mm[Hg] 95 mm[Hg] [facility] [place] Systolic blood 167 mm[Hg] 167 mm[Hg] [facility] Body temperature 36.592016 Kaylie 36.497817 [facility] Respiratory rate 20 /min 20 /min [facility] 96 % 96 % [place] saturation in Medical Arterial blood Center by Pulse oximetry Heart rate 86 /min 86 /min [facility] Diastolic blood 99 mm[Hg] 99 mm[Hg] [facility] Systolic blood 168 mm[Hg] 168 mm[Hg] [facility] Body weight 109.540984 kg 109.393287 kg [facility] [place] Body temperature 36.232793 Kaylie 36.207127 [facility] Respiratory rate 20 /min 20 /min [facility] 97 % 97 % [facility] [place] saturation in Medical Arterial blood Center by Pulse oximetry Heart rate 88 /min 88 /min [facility] Body height 175.253460 cm 175.982711 cm [facility] Diastolic blood 104 mm[Hg] 104 mm[Hg] [facility] pressure [facility] Center Systolic blood 165 mm[Hg] 165 mm[Hg] [facility] Body mass index 35.5 kg/m2 35.5 kg/m2 [facility] (BMI) [Ratio] [facility] Body temperature 36.531263 Kaylie 36.532858 [facility] Respiratory rate 20 /min 20 /min [facility] 94 % 94 % [place] saturation in Medical Arterial blood Center by Pulse oximetry Heart rate 89 /min 89 /min [facility] Diastolic blood 81 mm[Hg] 81 mm[Hg] [facility] Systolic blood 137 mm[Hg] 137 mm[Hg] [facility] Body temperature 36.001472 Kaylie 36.512150 [facility] Respiratory rate 17 /min 17 /min [facility] 98 % 98 % [place] saturation in Medical Arterial blood Center by Pulse oximetry Heart rate 74 /min 74 /min [facility] Diastolic blood 73 mm[Hg] 73 mm[Hg] [facility] Systolic blood 135 mm[Hg] 135 mm[Hg] [facility] Body temperature 37.943625 Kaylie 37.816676 [facility] Respiratory rate 18 /min 18 /min [facility] 99 % 99 % [place] saturation in Medical Arterial blood Center by Pulse oximetry Heart rate 93 /min 93 /min [facility] Diastolic blood 77 mm[Hg] 77 mm[Hg] [facility] Systolic blood 141 mm[Hg] 141 mm[Hg] [facility] Body temperature 37.782425 Kaylie 37.804200 [facility] Respiratory rate 18 /min 18 /min [facility] 99 % 99 % [place] saturation in Medical Arterial blood Center by Pulse oximetry Heart rate 73 /min 73 /min [facility] Diastolic blood 85 mm[Hg] 85 mm[Hg] [facility] Systolic blood 128 mm[Hg] 128 mm[Hg] [facility] Body temperature 36.270497 Kaylie 36.076966 [facility] Respiratory rate 17 /min 17 /min [facility] 99 % 99 % [place] saturation in Medical Arterial blood Center by Pulse oximetry Heart rate 85 /min 85 /min [facility] Diastolic blood 78 mm[Hg] 78 mm[Hg] [facility] pressure [facility] Center Systolic blood 132 mm[Hg] 132 mm[Hg] [facility] Body temperature 36.316468 Kaylie 36.276032 [facility] Respiratory rate 18 /min 18 /min [facility] 98 % 98 % [place] saturation in Medical Arterial blood Center by Pulse oximetry Heart rate 82 /min 82 /min [facility] Diastolic blood 83 mm[Hg] 83 mm[Hg] [facility] Systolic blood 125 mm[Hg] 125 mm[Hg] [facility] [place] Body temperature 37.203404 Kaylie 37.177370 [facility] Respiratory rate 18 /min 18 /min [facility] 97 % 97 % [place] saturation in Medical Arterial blood Center by Pulse oximetry Heart rate 101 /min 101 /min [facility] Diastolic blood 77 mm[Hg] 77 mm[Hg] [facility] pressure [facility] Center Systolic blood 137 mm[Hg] 137 mm[Hg] [facility] Heart rate 88 /min 88 /min [facility] Diastolic blood 78 mm[Hg] 78 mm[Hg] [facility] pressure [facility] Center Systolic blood 144 mm[Hg] 144 mm[Hg] [facility] Body temperature 36.748743 Kaylie 36.066071 [facility] Respiratory rate 18 /min 18 /min [facility] 97 % 97 % [place] saturation in Medical Arterial blood Center by Pulse oximetry Body temperature 37.637214 Kaylie 37.578369 [facility] Respiratory rate 18 /min 18 /min [facility] 95 % 95 % [place] saturation in Medical Arterial blood Center by Pulse oximetry Heart rate 90 /min 90 /min [facility] Diastolic blood 92 mm[Hg] 92 mm[Hg] [facility] pressure [facility] Systolic blood 153 mm[Hg] 153 mm[Hg] [facility] Body temperature 37.699061 Kaylie 37.214670 [facility] Respiratory rate 18 /min 18 /min [facility] 95 % 95 % [place] saturation in Medical Arterial blood Center by Pulse oximetry Heart rate 96 /min 96 /min [facility] Diastolic blood 75 mm[Hg] 75 mm[Hg] [facility] pressure [facility] Center Systolic blood 127 mm[Hg] 127 mm[Hg] [facility] Body temperature 36.664272 Kaylie 36.195593 [facility] Respiratory rate 18 /min 18 /min [facility] 96 % 96 % [place] saturation in Medical Arterial blood Center by Pulse oximetry Heart rate 96 /min 96 /min [facility] Diastolic blood 98 mm[Hg] 98 mm[Hg] [facility] pressure [facility] Systolic blood 151 mm[Hg] 151 mm[Hg] [facility] Body temperature 36.155892 Kaylie 36.333823 [facility] Respiratory rate 17 /min 17 /min [facility] 96 % 96 % [place] saturation in Medical Arterial blood Center by Pulse oximetry Heart rate 94 /min 94 /min [facility] Diastolic blood 74 mm[Hg] 74 mm[Hg] [facility] pressure [facility] Systolic blood 138 mm[Hg] 138 mm[Hg] [facility] Respiratory rate 16 /min 16 /min [facility] 98 % 98 % [place] saturation in Medical Arterial blood Center by Pulse oximetry Heart rate 91 /min 91 /min [facility] Diastolic blood 70 mm[Hg] 70 mm[Hg] [facility] pressure [facility] Systolic blood 130 mm[Hg] 130 mm[Hg] [facility] Body temperature 36.627130 Kaylie 36.616530 [facility] Respiratory rate 16 /min 16 /min [facility] 97 % 97 % [place] saturation in Medical Arterial blood Center by Pulse oximetry Heart rate 91 /min 91 /min [facility] Diastolic blood 61 mm[Hg] 61 mm[Hg] [facility] pressure [facility] Center Systolic blood 109 mm[Hg] 109 mm[Hg] [facility] Body temperature 36.647350 Kaylie 36.723913 [facility] Respiratory rate 17 /min 17 /min [facility] 95 % 95 % [place] saturation in Medical Arterial blood Center by Pulse oximetry Heart rate 96 /min 96 /min [facility] Diastolic blood 50 mm[Hg] 50 mm[Hg] [facility] pressure [facility] Center Systolic blood 110 mm[Hg] 110 mm[Hg] [facility] Body temperature 36.438879 Kaylie 36.144104 [facility] Respiratory rate 18 /min 18 /min [facility] 97 % 97 % [place] saturation in Medical Arterial blood Center by Pulse oximetry Heart rate 82 /min 82 /min [facility] Diastolic blood 70 mm[Hg] 70 mm[Hg] [facility] Systolic blood 120 mm[Hg] 120 mm[Hg] [facility] [place] Body temperature 36.839032 Kaylie 36.510278 [facility] Respiratory rate 17 /min 17 /min [facility] 98 % 98 % [place] saturation in Medical Arterial blood Center by Pulse oximetry Heart rate 76 /min 76 /min [facility] Diastolic blood 67 mm[Hg] 67 mm[Hg] [facility] [place] Systolic blood 154 mm[Hg] 154 mm[Hg] [facility] [place] Body temperature 36.286467 Kaylie 36.589427 [facility] Respiratory rate 18 /min 18 /min [facility] Heart rate 90 /min 90 /min [facility] Diastolic blood 71 mm[Hg] 71 mm[Hg] [facility] pressure [facility] Center Systolic blood 140 mm[Hg] 140 mm[Hg] [facility] [place] Body temperature 36.385388 Kaylie 36.281822 [facility] Respiratory rate 17 /min 17 /min [facility] 95 % 95 % [place] saturation in Medical Arterial blood Center by Pulse oximetry Heart rate 90 /min 90 /min [facility] Diastolic blood 77 mm[Hg] 77 mm[Hg] [facility] pressure [facility] Center Systolic blood 137 mm[Hg] 137 mm[Hg] [facility] Body temperature 36.298386 Kaylie 36.792184 [facility] Respiratory rate 18 /min 18 /min [facility] 98 % 98 % [place] saturation in Medical Arterial blood Center by Pulse oximetry Heart rate 76 /min 76 /min [facility] Diastolic blood 80 mm[Hg] 80 mm[Hg] [facility] pressure [facility] Center Systolic blood 124 mm[Hg] 124 mm[Hg] [facility] Body temperature 36.545218 Kaylie 36.641327 [facility] Respiratory rate 18 /min 18 /min [facility] 99 % 99 % [place] saturation in Medical Arterial blood Center by Pulse oximetry Heart rate 90 /min 90 /min [facility] Diastolic blood 77 mm[Hg] 77 mm[Hg] [facility] Systolic blood 149 mm[Hg] 149 mm[Hg] [facility] Body temperature 36.327900 Kaylie 36.480423 [facility] Respiratory rate 19 /min 19 /min [facility] 99 % 99 % [place] saturation in Medical Arterial blood Center by Pulse oximetry Heart rate 88 /min 88 /min [facility] Diastolic blood 66 mm[Hg] 66 mm[Hg] [facility] Systolic blood 154 mm[Hg] 154 mm[Hg] [facility] Body temperature 36.838996 Kaylie 36.923024 [facility] Respiratory rate 18 /min 18 /min [facility] 96 % 96 % [place] saturation in Medical Arterial blood Center by Pulse oximetry Heart rate 93 /min 93 /min [facility] Diastolic blood 76 mm[Hg] 76 mm[Hg] [facility] Systolic blood 144 mm[Hg] 144 mm[Hg] [facility] Body temperature 37.384949 Kaylie 37.207050 [facility] Respiratory rate 19 /min 19 /min [facility] 95 % 95 % [place] saturation in Medical Arterial blood Center by Pulse oximetry Heart rate 90 /min 90 /min [facility] Diastolic blood 59 mm[Hg] 59 mm[Hg] [facility] Systolic blood 133 mm[Hg] 133 mm[Hg] [facility] Body temperature 36.207858 Kaylie 36.035790 [facility] Respiratory rate 18 /min 18 /min [facility] 97 % 97 % [facility] saturation in Medical Arterial blood Center by Pulse oximetry Heart rate 88 /min 88 /min [facility] Diastolic blood 67 mm[Hg] 67 mm[Hg] [facility] pressure [facility] Systolic blood 148 mm[Hg] 148 mm[Hg] [facility] Body temperature 36.650800 Kaylie 36.788846 [facility] Respiratory rate 20 /min 20 /min [facility] 94 % 94 % [facility] saturation in Medical Arterial blood Center by Pulse oximetry Heart rate 88 /min 88 /min [facility] Diastolic blood 66 mm[Hg] 66 mm[Hg] [facility] Systolic blood 135 mm[Hg] 135 mm[Hg] [facility] Body temperature 37.504211 Kaylie 37.236295 [facility] Respiratory rate 20 /min 20 /min [facility] 94 % 94 % [facility] saturation in Medical Arterial blood Center by Pulse oximetry Heart rate 84 /min 84 /min [facility] Diastolic blood 69 mm[Hg] 69 mm[Hg] [facility] Systolic blood 130 mm[Hg] 130 mm[Hg] [facility] Body weight 90.890459 kg 90.546148 kg [facility]asured [facility] Body height 175.509228 cm 175.911319 cm [facility] Body mass index 29.5 kg/m2 29.5 kg/m2 [facility] (BMI) [Ratio] [facility] Body temperature 36.196716 Kaylie 36.523488 [facility] Respiratory rate 17 /min 17 /min [facility] 98 % 98 % [facility] saturation in Medical Arterial blood Center by Pulse oximetry Heart rate 71 /min 71 /min [facility] Diastolic blood 76 mm[Hg] 76 mm[Hg] [facility] Systolic blood 136 mm[Hg] 136 mm[Hg] [facility] Body temperature 36.595496 Kaylie 36.623449 [facility] Respiratory rate 18 /min 18 /min [facility] 97 % 97 % [place] saturation in Medical Arterial blood Center by Pulse oximetry Heart rate 76 /min 76 /min [facility] Diastolic blood 76 mm[Hg] 76 mm[Hg] [facility] pressure [facility] Systolic blood 124 mm[Hg] 124 mm[Hg] [facility] Body temperature 36.660806 Kaylie 36.100707 [facility] Respiratory rate 19 /min 19 /min [facility] 97 % 97 % [place] saturation in Medical Arterial blood Center by Pulse oximetry Heart rate 97 /min 97 /min [facility] Diastolic blood 73 mm[Hg] 73 mm[Hg] [facility] Systolic blood 118 mm[Hg] 118 mm[Hg] [facility] Body weight 104.719436 kg 104.722308 kg [facility] Body temperature 36.737794 Kaylie 36.420427 [facility] Respiratory rate 17 /min 17 /min [facility] 96 % 96 % [facility] saturation in Medical Arterial blood Center by Pulse oximetry Heart rate 95 /min 95 /min [facility] Body height 177.118302 cm 177.422429 cm [facility] Diastolic blood 81 mm[Hg] 81 mm[Hg] [facility] [facility] Systolic blood 150 mm[Hg] 150 mm[Hg] [facility] Body mass index 33.0 kg/m2 33.0 kg/m2 [facility] (BMI) [Ratio] [facility] Body temperature 36.777834 Kaylie 36.804615 [facility] Respiratory rate 18 /min 18 /min [facility] 97 % 97 % [facility] saturation in Medical Arterial blood Center by Pulse oximetry Heart rate 89 /min 89 /min [facility] Diastolic blood 75 mm[Hg] 75 mm[Hg] [facility] Systolic blood 144 mm[Hg] 144 mm[Hg] [facility] Body temperature 36.190873 Kaylie 36.979110 [facility] Respiratory rate 18 /min 18 /min [facility] 97 % 97 % [facility] saturation in Medical Arterial blood Center by Pulse oximetry Heart rate 71 /min 71 /min [facility] Diastolic blood 96 mm[Hg] 96 mm[Hg] [facility] pressure [facility] Center Systolic blood 136 mm[Hg] 136 mm[Hg] [facility] Heart rate 84 /min 84 /min [facility] Diastolic blood 83 mm[Hg] 83 mm[Hg] [facility] pressure [facility] Center Systolic blood 132 mm[Hg] 132 mm[Hg] [facility] Respiratory rate 18 /min 18 /min [facility] 97 % 97 % [facility] [place] saturation in Medical Arterial blood Center by Pulse oximetry Body temperature 36.240128 Kaylie 36.760708 [facility] Respiratory rate 18 /min 18 /min [facility] 97 % 97 % [facility] saturation in Medical Arterial blood Center by Pulse oximetry Heart rate 82 /min 82 /min [facility] Diastolic blood 82 mm[Hg] 82 mm[Hg] [facility] Systolic blood 138 mm[Hg] 138 mm[Hg] [facility] Body temperature 36.641210 Kaylie 36.162825 [facility] Respiratory rate 18 /min 18 /min [facility] 96 % 96 % [facility] saturation in Medical Arterial blood Center by Pulse oximetry Heart rate 95 /min 95 /min [facility] Diastolic blood 84 mm[Hg] 84 mm[Hg] [facility] Systolic blood 155 mm[Hg] 155 mm[Hg] [facility] Body temperature 36.794834 Kaylie 36.413806 [facility] Respiratory rate 21 /min 21 /min [facility] 98 % 98 % [facility] saturation in Medical Arterial blood Center by Pulse oximetry Heart rate 97 /min 97 /min [facility] Diastolic blood 79 mm[Hg] 79 mm[Hg] [facility] Systolic blood 162 mm[Hg] 162 mm[Hg] [facility] Body weight 90.147609 kg 90.200753 kg [facility] Body temperature 36.294089 Kaylie 36.269216 [facility] Respiratory rate 18 /min 18 /min [facility] 96 % 96 % [place] saturation in Medical Arterial blood Center by Pulse oximetry Heart rate 92 /min 92 /min [facility] Body height 177.706946 cm 177.136764 cm [facility] Diastolic blood 85 mm[Hg] 85 mm[Hg] [facility] pressure [facility] Center Systolic blood 141 mm[Hg] 141 mm[Hg] [facility] Body mass index 28.6 kg/m2 28.6 kg/m2 [facility] (BMI) [Ratio] [facility] Center Body temperature 36.941348 Kaylie 36.015744 [facility] Respiratory rate 20 /min 20 /min [facility] 94 % 94 % [facility] saturation in Medical Arterial blood Center by Pulse oximetry Heart rate 96 /min 96 /min [facility] Diastolic blood 85 mm[Hg] 85 mm[Hg] [facility] Systolic blood 125 mm[Hg] 125 mm[Hg] [facility] Body temperature 36.538400 Kaylie 36.388778 [facility] Respiratory rate 19 /min 19 /min [facility] 93 % 93 % [facility] saturation in Medical Arterial blood Center by Pulse oximetry Heart rate 91 /min 91 /min [facility] Diastolic blood 74 mm[Hg] 74 mm[Hg] [facility] Systolic blood 132 mm[Hg] 132 mm[Hg] [facility] Body weight 95.340095 kg 95.099463 kg [facility] Body temperature 36.684690 Kaylie 36.400961 [facility] Respiratory rate 17 /min 17 /min [facility] 95 % 95 % [place] saturation in Medical Arterial blood Center by Pulse oximetry Heart rate 86 /min 86 /min [facility] Body height 177.391726 cm 177.031692 cm [facility] Diastolic blood 72 mm[Hg] 72 mm[Hg] [facility] Systolic blood 123 mm[Hg] 123 mm[Hg] [facility] Body mass index 30.1 kg/m2 30.1 kg/m2 [facility] (BMI) [Ratio] [facility] Body temperature 36.093169 Kaylie 36.511186 [facility] Respiratory rate 16 /min 16 /min [facility] 93 % 93 % [facility] saturation in Medical Arterial blood Center by Pulse oximetry Heart rate 103 /min 103 /min [facility] Diastolic blood 67 mm[Hg] 67 mm[Hg] [facility] [place] Systolic blood 123 mm[Hg] 123 mm[Hg] [facility] Body temperature 36.869472 Kaylie 36.892525 [facility] Respiratory rate 18 /min 18 /min [facility] 98 % 98 % [facility] [place] saturation in Medical Arterial blood Center by Pulse oximetry Heart rate 76 /min 76 /min [facility] Diastolic blood 77 mm[Hg] 77 mm[Hg] [facility] Systolic blood 120 mm[Hg] 120 mm[Hg] [facility] Body temperature 36.833781 Kaylie 36.186990 [facility] Respiratory rate 18 /min 18 /min [facility] 98 % 98 % [facility] [place] saturation in Medical Arterial blood Center by Pulse oximetry Heart rate 76 /min 76 /min [facility] Diastolic blood 76 mm[Hg] 76 mm[Hg] [facility] Systolic blood 122 mm[Hg] 122 mm[Hg] [facility] Body temperature 35.099325 Kaylie 35.690320 [facility] Respiratory rate 17 /min 17 /min [facility] 97 % 97 % [facility] [place] saturation in Medical Arterial blood Center by Pulse oximetry Heart rate 86 /min 86 /min [facility] Diastolic blood 69 mm[Hg] 69 mm[Hg] [facility] Systolic blood 121 mm[Hg] 121 mm[Hg] [facility] Body temperature 37.634322 Kaylie 37.882308 [facility] Respiratory rate 16 /min 16 /min [facility] 98 % 98 % [facility] [place] saturation in Medical Arterial blood Center by Pulse oximetry Heart rate 80 /min 80 /min [facility] Diastolic blood 65 mm[Hg] 65 mm[Hg] [facility] Systolic blood 116 mm[Hg] 116 mm[Hg] [facility] Respiratory rate 16 /min 16 /min [facility] 97 % 97 % [facility] [place] saturation in Medical Arterial blood Center by Pulse oximetry Heart rate 84 /min 84 /min [facility] Diastolic blood 69 mm[Hg] 69 mm[Hg] [facility] Systolic blood 115 mm[Hg] 115 mm[Hg] [facility] Body temperature 37.916257 Kaylie 37.205335 [facility] Oxygen 98 % 98 % [facility] [place] saturation in Medical Arterial blood Center by Pulse oximetry Heart rate 90 /min 90 /min [facility] Diastolic blood 72 mm[Hg] 72 mm[Hg] [facility] [place] Systolic blood 106 mm[Hg] 106 mm[Hg] [facility] Body temperature 36.392771 Kaylie 36.747714 [facility] Respiratory rate 19 /min 19 /min [facility] 98 % 98 % [facility] [place] saturation in Medical Arterial blood Center by Pulse oximetry Heart rate 86 /min 86 /min [facility] Diastolic blood 55 mm[Hg] 55 mm[Hg] [facility] Systolic blood 91 mm[Hg] 91 mm[Hg] [facility] Body temperature 37.977687 Kaylie 37.669190 [facility] Respiratory rate 18 /min 18 /min [facility] 95 % 95 % [facility] [place] saturation in Medical Arterial blood Center by Pulse oximetry Heart rate 95 /min 95 /min [facility] Diastolic blood 79 mm[Hg] 79 mm[Hg] [facility] Systolic blood 122 mm[Hg] 122 mm[Hg] [facility] Body weight 105.738933 kg 105.543074 kg [facility] Body temperature 37.539842 Kaylei 37.632457 [facility] Respiratory rate 20 /min 20 /min [facility] 94 % 94 % [facility] [place] saturation in Medical Arterial blood Center by Pulse oximetry Heart rate 83 /min 83 /min [facility] Body height 175.056079 cm 175.366324 cm [facility] Diastolic blood 85 mm[Hg] 85 mm[Hg] [facility] pressure [facility] Center Systolic blood 134 mm[Hg] 134 mm[Hg] [facility] Body mass index 34.2 kg/m2 34.2 kg/m2 [facility] (BMI) [Ratio] [facility] Center Body weight 81.230076 kg 81.793956 kg [facility]asured [facility] Body temperature 36.509377 Kaylie 36.890235 [facility] Respiratory rate 18 /min 18 /min [facility] 96 % 96 % [facility] [place] saturation in Medical Arterial blood Center by Pulse oximetry Heart rate 86 /min 86 /min [facility] Body height 172.258056 cm 172.264639 cm [facility] Diastolic blood 85 mm[Hg] 85 mm[Hg] [facility] Systolic blood 138 mm[Hg] 138 mm[Hg] [facility] Body mass index 27.3 kg/m2 27.3 kg/m2 [facility] (BMI) [Ratio] [facility] Body temperature 36.667905 Kaylie 36.735837 [facility] Respiratory rate 17 /min 17 /min [facility] 98 % 98 % [facility] [place] saturation in Medical Arterial blood Center by Pulse oximetry Heart rate 81 /min 81 /min [facility] Diastolic blood 71 mm[Hg] 71 mm[Hg] [facility] pressure [facility] Center Systolic blood 128 mm[Hg] 128 mm[Hg] [facility] Body temperature 36.368919 Kaylie 36.692379 [facility] Respiratory rate 17 /min 17 /min [facility] 95 % 95 % [facility] [place] saturation in Medical Arterial blood Center by Pulse oximetry Heart rate 101 /min 101 /min [facility] Diastolic blood 78 mm[Hg] 78 mm[Hg] [facility] Systolic blood 128 mm[Hg] 128 mm[Hg] [facility] Body temperature 41.778828 Kaylie 41.415430 [facility] Respiratory rate 18 /min 18 /min [facility] 92 % 92 % [facility] [place] saturation in Medical Arterial blood Center by Pulse oximetry Heart rate 117 /min 117 /min [facility] Diastolic blood 77 mm[Hg] 77 mm[Hg] [facility] pressure [facility] Center Systolic blood 130 mm[Hg] 130 mm[Hg] [facility] Body temperature 37.402540 Kaylie 37.475987 [facility] Respiratory rate 18 /min 18 /min [facility] 98 % 98 % [facility] [place] saturation in Medical Arterial blood Center by Pulse oximetry Heart rate 89 /min 89 /min [facility] Diastolic blood 85 mm[Hg] 85 mm[Hg] [facility] pressure [facility] Center Systolic blood 142 mm[Hg] 142 mm[Hg] [facility] Body weight 110.589502 kg 110.752265 kg [facility] Body temperature 36.923796 Kaylie 36.908483 [facility] Respiratory rate 18 /min 18 /min [facility] 98 % 98 % [place] saturation in Medical Arterial blood Center by Pulse oximetry Heart rate 88 /min 88 /min [facility] Body height 182.375594 cm 182.532100 cm [facility] Diastolic blood 98 mm[Hg] 98 mm[Hg] [facility] pressure [facility] Center Systolic blood 138 mm[Hg] 138 mm[Hg] [facility] Body mass index 32.8 kg/m2 32.8 kg/m2 [facility] (BMI) [Ratio] [facility] Body temperature 36.713393 Kaylie 36.749258 [facility] Respiratory rate 17 /min 17 /min [facility] 95 % 95 % [facility] [place] saturation in Medical Arterial blood Center by Pulse oximetry Heart rate 96 /min 96 /min [facility] Diastolic blood 74 mm[Hg] 74 mm[Hg] [facility] pressure [facility] Center Systolic blood 126 mm[Hg] 126 mm[Hg] [facility] Body temperature 36.892107 Kaylie 36.184528 [facility] Respiratory rate 18 /min 18 /min [facility] 100 % 100 % [facility] [place] saturation in Medical Arterial blood Center by Pulse oximetry Heart rate 85 /min 85 /min [facility] Diastolic blood 80 mm[Hg] 80 mm[Hg] [facility] Systolic blood 146 mm[Hg] 146 mm[Hg] [facility] Body temperature 36.867317 Kaylie 36.389841 [facility] Respiratory rate 18 /min 18 /min [facility] 98 % 98 % [facility] saturation in Medical Arterial blood Center by Pulse oximetry Heart rate 80 /min 80 /min [facility] Diastolic blood 60 mm[Hg] 60 mm[Hg] [facility] Systolic blood 96 mm[Hg] 96 mm[Hg] [facility] Body temperature 36.673131 Kaylie 36.972207 [facility] Respiratory rate 18 /min 18 /min [facility] 98 % 98 % [facility] saturation in Medical Arterial blood Center by Pulse oximetry Heart rate 83 /min 83 /min [facility] Diastolic blood 68 mm[Hg] 68 mm[Hg] [facility] Systolic blood 128 mm[Hg] 128 mm[Hg] [facility] Body mass index 29.8 kg/m2 29.8 kg/m2 [facility] (BMI) [Ratio] [facility] Center Body weight 100.185473 kg 100.896670 kg [facility] Body temperature 36.597748 Kaylie 36.105720 [facility] Respiratory rate 18 /min 18 /min [facility] 98 % 98 % [facility] saturation in Medical Arterial blood Center by Pulse oximetry Heart rate 84 /min 84 /min [facility] Body height 182.017946 cm 182.499629 cm [facility] Diastolic blood 88 mm[Hg] 88 mm[Hg] [facility] Systolic blood 148 mm[Hg] 148 mm[Hg] [facility] Body temperature 36.531801 Kaylie 36.990816 [facility] Respiratory rate 17 /min 17 /min [facility] 99 % 99 % [facility] saturation in Medical Arterial blood Center by Pulse oximetry Heart rate 80 /min 80 /min [facility] Diastolic blood 79 mm[Hg] 79 mm[Hg] [facility] Systolic blood 126 mm[Hg] 126 mm[Hg] [facility] Body temperature 36.670513 Kaylie 36.554519 [facility] Respiratory rate 17 /min 17 /min [facility] 99 % 99 % [facility] [place] saturation in Medical Arterial blood Center by Pulse oximetry Heart rate 85 /min 85 /min [facility] Diastolic blood 74 mm[Hg] 74 mm[Hg] [facility] pressure [facility] Center Systolic blood 136 mm[Hg] 136 mm[Hg] [facility] [place] Body temperature 36.551604 Kaylie 36.857350 [facility] Respiratory rate 18 /min 18 /min [facility] 98 % 98 % [place] saturation in Medical Arterial blood Center by Pulse oximetry Heart rate 97 /min 97 /min [facility] Diastolic blood 70 mm[Hg] 70 mm[Hg] [facility] Systolic blood 126 mm[Hg] 126 mm[Hg] [facility] Body temperature 36.340579 Kaylie 36.352673 [facility] Respiratory rate 19 /min 19 /min [facility] 97 % 97 % [place] saturation in Medical Arterial blood Center by Pulse oximetry Heart rate 79 /min 79 /min [facility] Diastolic blood 78 mm[Hg] 78 mm[Hg] [facility] Systolic blood 135 mm[Hg] 135 mm[Hg] [facility] Respiratory rate 18 /min 18 /min [facility] 93 % 93 % [facility] [place] saturation in Medical Arterial blood Center by Pulse oximetry Heart rate 89 /min 89 /min [facility] Body height 177.985193 cm 177.729877 cm [facility] Diastolic blood 75 mm[Hg] 75 mm[Hg] [facility] Systolic blood 104 mm[Hg] 104 mm[Hg] [facility] Body mass index 37.9 kg/m2 37.9 kg/m2 [facility] (BMI) [Ratio] [facility] Center Body weight 120.891080 kg 120.842044 kg [facility] Body temperature 36.836944 Kaylie 36.877805 [facility] Body temperature 36.643127 Kaylie 36.421658 [facility] Respiratory rate 17 /min 17 /min [facility] 95 % 95 % [place] saturation in Medical Arterial blood Center by Pulse oximetry Heart rate 94 /min 94 /min [facility] Diastolic blood 62 mm[Hg] 62 mm[Hg] [facility] pressure [facility] Center Systolic blood 115 mm[Hg] 115 mm[Hg] [facility] Body temperature 36.560179 Kaylie 36.456559 [facility] Respiratory rate 18 /min 18 /min [facility] 96 % 96 % [place] saturation in Medical Arterial blood Center by Pulse oximetry Heart rate 91 /min 91 /min [facility] Diastolic blood 77 mm[Hg] 77 mm[Hg] [facility] [place] Systolic blood 131 mm[Hg] 131 mm[Hg] [facility] Body temperature 37.169841 Kaylie 37.799449 [facility] Respiratory rate 19 /min 19 /min [facility] 97 % 97 % [place] saturation in Medical Arterial blood Center by Pulse oximetry Heart rate 105 /min 105 /min [facility] Diastolic blood 74 mm[Hg] 74 mm[Hg] [facility] [place] Systolic blood 122 mm[Hg] 122 mm[Hg] [facility] Body temperature 37.090271 Kaylie 37.925342 [facility] Respiratory rate 20 /min 20 /min [facility] 93 % 93 % [place] saturation in Medical Arterial blood Center by Pulse oximetry Heart rate 117 /min 117 /min [facility] Diastolic blood 58 mm[Hg] 58 mm[Hg] [facility] Systolic blood 108 mm[Hg] 108 mm[Hg] [facility] Body temperature 36.894862 Kaylie 36.345196 [facility] Oxygen 90 % 90 % [place] saturation in Medical Arterial blood Center by Pulse oximetry Heart rate 112 /min 112 /min [facility] Diastolic blood 54 mm[Hg] 54 mm[Hg] [facility] pressure [facility] Center Systolic blood 117 mm[Hg] 117 mm[Hg] [facility] Body weight 117.208933 kg 117.835095 kg [facility] Body temperature 36.317469 Kaylie 36.412382 [facility] Respiratory rate 18 /min 18 /min [facility] 99 % 99 % [place] saturation in Medical Arterial blood Center by Pulse oximetry Heart rate 89 /min 89 /min [facility] Body height 182.873984 cm 182.736867 cm [facility] Diastolic blood 84 mm[Hg] 84 mm[Hg] [facility] pressure [facility] Systolic blood 142 mm[Hg] 142 mm[Hg] [facility] Body mass index 35.2 kg/m2 35.2 kg/m2 [facility] (BMI) [Ratio] [facility] Body temperature 36.225356 Kaylie 36.924115 [facility] Respiratory rate 16 /min 16 /min [facility] 98 % 98 % [place] saturation in Medical Arterial blood Center by Pulse oximetry Heart rate 79 /min 79 /min [facility] Diastolic blood 94 mm[Hg] 94 mm[Hg] [facility] Systolic blood 149 mm[Hg] 149 mm[Hg] [facility] Body temperature 36.387950 Kaylie 36.437391 [facility] Respiratory rate 16 /min 16 /min [facility] 95 % 95 % [facility] [place] saturation in Medical Arterial blood Center by Pulse oximetry Heart rate 83 /min 83 /min [facility] Diastolic blood 74 mm[Hg] 74 mm[Hg] [facility] Systolic blood 156 mm[Hg] 156 mm[Hg] [facility] Body temperature 36.107235 Kaylie 36.069044 [facility] Respiratory rate 20 /min 20 /min [facility] 96 % 96 % [place] saturation in Medical Arterial blood Center by Pulse oximetry Heart rate 85 /min 85 /min [facility] Diastolic blood 83 mm[Hg] 83 mm[Hg] [facility] Systolic blood 142 mm[Hg] 142 mm[Hg] [facility] Body temperature 36.057733 Kaylie 36.638932 [facility] Respiratory rate 20 /min 20 /min [facility] 97 % 97 % [place] saturation in Medical Arterial blood Center by Pulse oximetry Heart rate 107 /min 107 /min [facility] Diastolic blood 104 mm[Hg] 104 mm[Hg] [facility] pressure [facility] Systolic blood 164 mm[Hg] 164 mm[Hg] [facility] Body temperature 36.609608 Kaylie 36.255033 [facility] Respiratory rate 20 /min 20 /min [facility] 97 % 97 % [place] saturation in Medical Arterial blood Center by Pulse oximetry Heart rate 90 /min 90 /min [facility] Diastolic blood 78 mm[Hg] 78 mm[Hg] [facility] pressure [facility] Systolic blood 140 mm[Hg] 140 mm[Hg] [facility] Body weight 99.638117 kg 99.580594 kg [facility] Body temperature 36.770543 Kaylie 36.889639 [facility] Respiratory rate 17 /min 17 /min [facility] 95 % 95 % [place] saturation in Medical Arterial blood Center by Pulse oximetry Heart rate 92 /min 92 /min [facility] Body height 177.157878 cm 177.026393 cm [facility] Diastolic blood 78 mm[Hg] 78 mm[Hg] [facility] pressure [facility] Systolic blood 138 mm[Hg] 138 mm[Hg] [facility] Body mass index 31.5 kg/m2 31.5 kg/m2 [facility] (BMI) [Ratio] [facility] Body temperature 36.122437 Kaylie 36.984291 [facility] Respiratory rate 17 /min 17 /min [facility] 98 % 98 % [place] saturation in Medical Arterial blood Center by Pulse oximetry Heart rate 75 /min 75 /min [facility] Diastolic blood 68 mm[Hg] 68 mm[Hg] [facility] pressure [facility] Systolic blood 129 mm[Hg] 129 mm[Hg] [facility] Body temperature 36.049233 Kaylie 36.376732 [facility] Respiratory rate 17 /min 17 /min [facility] 99 % 99 % [facility] [place] saturation in Medical Arterial blood Center by Pulse oximetry Heart rate 81 /min 81 /min [facility] Diastolic blood 79 mm[Hg] 79 mm[Hg] [facility] pressure [facility] Center Systolic blood 143 mm[Hg] 143 mm[Hg] [facility] Body temperature 36.437326 Kaylie 36.441309 [facility] Respiratory rate 17 /min 17 /min [facility] 99 % 99 % [place] saturation in Medical Arterial blood Center by Pulse oximetry Heart rate 88 /min 88 /min [facility] Diastolic blood 76 mm[Hg] 76 mm[Hg] [facility] pressure [facility] Center Systolic blood 145 mm[Hg] 145 mm[Hg] [facility] [place] Body temperature 36.708469 Kaylie 36.593171 [facility] Respiratory rate 18 /min 18 /min [facility] 98 % 98 % [facility] saturation in Medical Arterial blood Center by Pulse oximetry Heart rate 76 /min 76 /min [facility] Diastolic blood 75 mm[Hg] 75 mm[Hg] [facility] [place] Systolic blood 122 mm[Hg] 122 mm[Hg] [facility] Body temperature 37.019756 Kaylie 37.783121 [facility] Respiratory rate 18 /min 18 /min [facility] 97 % 97 % [facility] saturation in Medical Arterial blood Center by Pulse oximetry Heart rate 89 /min 89 /min [facility] Diastolic blood 78 mm[Hg] 78 mm[Hg] [facility] Systolic blood 146 mm[Hg] 146 mm[Hg] [facility] Body temperature 36.022602 Kaylie 36.715045 Kyalie [facility] Respiratory rate 18 /min 18 /min [facility] 98 % 98 % [facility] saturation in Medical Arterial blood Center by Pulse oximetry Heart rate 82 /min 82 /min [facility] Diastolic blood 80 mm[Hg] 80 mm[Hg] [facility] Systolic blood 134 mm[Hg] 134 mm[Hg] [facility] Body temperature 37.120447 Kaylie 37.087605 [facility]lie [facility] Respiratory rate 18 /min 18 /min [facility] 99 % 99 % [facility] saturation in Medical Arterial blood Center by Pulse oximetry Heart rate 86 /min 86 /min [facility] Diastolic blood 85 mm[Hg] 85 mm[Hg] [facility] pressure [facility] Center Systolic blood 142 mm[Hg] 142 mm[Hg] [facility] Body weight 119.411633 kg 119.736813 kg [facility] Body temperature 36.770118 Kaylie 36.784608 [facility]lie [facility] Respiratory rate 18 /min 18 /min [facility] 97 % 97 % [facility] saturation in Medical Arterial blood Center by Pulse oximetry Heart rate 83 /min 83 /min [facility] Diastolic blood 69 mm[Hg] 69 mm[Hg] [facility] Systolic blood 115 mm[Hg] 115 mm[Hg] [facility] Body weight 120.676170 kg 120.392081 kg [facility] Body temperature 37.134872 Kayile 37.173751 Kaylie [facility] Respiratory rate 18 /min 18 /min [facility] 98 % 98 % [facility] saturation in Medical Arterial blood Center by Pulse oximetry Heart rate 88 /min 88 /min [facility] Body height 182.744936 cm 182.297957 cm [facility] Diastolic blood 88 mm[Hg] 88 mm[Hg] [facility] pressure [facility] Center Systolic blood 148 mm[Hg] 148 mm[Hg] [facility] Body mass index 35.8 kg/m2 35.8 kg/m2 [facility] (BMI) [Ratio] [facility] Center Body temperature 36.160591 Kaylie 36.587446 [facility] Respiratory rate 17 /min 17 /min [facility] 97 % 97 % [facility] saturation in Medical Arterial blood Center by Pulse oximetry Heart rate 75 /min 75 /min [facility] Diastolic blood 71 mm[Hg] 71 mm[Hg] [facility] pressure [facility] Center Systolic blood 145 mm[Hg] 145 mm[Hg] [facility] Body temperature 36.216242 Kaylie 36.051570 Kaylie [facility] Respiratory rate 19 /min 19 /min [facility] 97 % 97 % [facility] saturation in Medical Arterial blood Center by Pulse oximetry Heart rate 88 /min 88 /min [facility] Diastolic blood 76 mm[Hg] 76 mm[Hg] [facility] pressure [facility] Center Systolic blood 150 mm[Hg] 150 mm[Hg] [facility] Body temperature 36.593810 Kaylie 36.025511 [facility]lie [facility] Respiratory rate 17 /min 17 /min [facility] 98 % 98 % [facility] saturation in Medical Arterial blood Center by Pulse oximetry Heart rate 71 /min 71 /min [facility] Diastolic blood 68 mm[Hg] 68 mm[Hg] [facility] pressure [facility] Center Systolic blood 129 mm[Hg] 129 mm[Hg] [facility] Body temperature 36.522688 Kaylie 36.407761 [facility]lie [facility] Respiratory rate 17 /min 17 /min [facility] 97 % 97 % [facility] saturation in Medical Arterial blood Center by Pulse oximetry Heart rate 75 /min 75 /min [facility] Diastolic blood 62 mm[Hg] 62 mm[Hg] [facility] pressure [facility] Center Systolic blood 133 mm[Hg] 133 mm[Hg] [facility] [place] Body temperature 36.355300 Kaylie 36.385107 [facility] Respiratory rate 17 /min 17 /min [facility] 99 % 99 % [facility] saturation in Medical Arterial blood Center by Pulse oximetry Heart rate 80 /min 80 /min [facility] Diastolic blood 92 mm[Hg] 92 mm[Hg] [facility] pressure [facility] Center Systolic blood 144 mm[Hg] 144 mm[Hg] [facility] Body temperature 36.544415 Kaylie 36.431674 [facility] Respiratory rate 18 /min 18 /min [facility] 97 % 97 % [facility] saturation in Medical Arterial blood Center by Pulse oximetry Heart rate 89 /min 89 /min [facility] Diastolic blood 88 mm[Hg] 88 mm[Hg] [facility] pressure Medical Center Systolic blood 148 mm[Hg] 148 mm[Hg] [facility] Body temperature 36.204329 Kaylie 36.222187 Kaylie [facility] Respiratory rate 17 /min 17 /min [facility] 97 % 97 % [facility] saturation in Medical Arterial blood Center by Pulse oximetry Heart rate 81 /min 81 /min [facility] Diastolic blood 79 mm[Hg] 79 mm[Hg] [facility] Systolic blood 133 mm[Hg] 133 mm[Hg] [facility] Body temperature 36.145992 Kaylie 36.693177 Kaylie [facility] Respiratory rate 17 /min 17 /min [facility] 98 % 98 % [facility] saturation in Medical Arterial blood Center by Pulse oximetry Heart rate 87 /min 87 /min [facility] Diastolic blood 88 mm[Hg] 88 mm[Hg] [facility] Systolic blood 136 mm[Hg] 136 mm[Hg] [facility] Body temperature 36.327487 Kaylie 36.273594 Kaylie [facility] Respiratory rate 18 /min 18 /min [facility] 97 % 97 % [facility] saturation in Medical Arterial blood Center by Pulse oximetry Heart rate 95 /min 95 /min [facility] Diastolic blood 84 mm[Hg] 84 mm[Hg] [facility] pressure [facility] Center Systolic blood 149 mm[Hg] 149 mm[Hg] [facility] Body temperature 36.388263 Kaylie 36.813707 Kaylie [facility] Respiratory rate 17 /min 17 /min [facility] 99 % 99 % [facility] saturation in Medical Arterial blood Center by Pulse oximetry Heart rate 81 /min 81 /min [facility] Diastolic blood 76 mm[Hg] 76 mm[Hg] [facility] Systolic blood 124 mm[Hg] 124 mm[Hg] [facility] Body weight 110.326334 kg 110.606953 kg [facility] [place] Body temperature 36.015048 Akylie 36.633130 [facility] Respiratory rate 18 /min 18 /min [facility] 98 % 98 % [facility] saturation in Medical Arterial blood Center by Pulse oximetry Heart rate 78 /min 78 /min [facility] Body height 185.097317 cm 185.223155 cm [facility] Diastolic blood 78 mm[Hg] 78 mm[Hg] [facility] Systolic blood 138 mm[Hg] 138 mm[Hg] [facility] Body mass index 31.9 kg/m2 31.9 kg/m2 [facility] (BMI) [Ratio] Medical Center Body weight 113.687849 kg 113.054406 kg [facility] Body temperature 37.550244 Kaylie 37.833444 [facility] Respiratory rate 18 /min 18 /min [facility] 100 % 100 % [place] saturation in Medical Arterial blood Center by Pulse oximetry Heart rate 95 /min 95 /min [facility] Body height 175.658049 cm 175.491648 cm [facility] Diastolic blood 83 mm[Hg] 83 mm[Hg] [facility] Systolic blood 148 mm[Hg] 148 mm[Hg] [facility] Body mass index 36.9 kg/m2 36.9 kg/m2 [facility] (BMI) [Ratio] Medical Center Body weight 105.843501 kg 105.043873 kg [facility] Body temperature 36.911238 Kaylie 36.493721 Kaylie [facility] Respiratory rate 18 /min 18 /min [facility] 93 % 93 % [facility] saturation in Medical Arterial blood Center by Pulse oximetry Heart rate 88 /min 88 /min [facility] Body height 173.476142 cm 173.166617 cm [facility] Diastolic blood 88 mm[Hg] 88 mm[Hg] [facility] Systolic blood 140 mm[Hg] 140 mm[Hg] [facility] Body mass index 35.0 kg/m2 35.0 kg/m2 [facility] (BMI) [Ratio] Medical Center Body temperature 37.342201 Kaylie 37.206956 [facility] Respiratory rate 18 /min 18 /min [facility] 95 % 95 % [facility] saturation in Medical Arterial blood Center by Pulse oximetry Heart rate 97 /min 97 /min [facility] Diastolic blood 78 mm[Hg] 78 mm[Hg] [facility] Systolic blood 132 mm[Hg] 132 mm[Hg] [facility] Body temperature 37.504406 Kaylie 37.950261 [facility] Respiratory rate 18 /min 18 /min [facility] 95 % 95 % [facility] saturation in Medical Arterial blood Center by Pulse oximetry Heart rate 96 /min 96 /min [facility] Diastolic blood 77 mm[Hg] 77 mm[Hg] [facility] Systolic blood 129 mm[Hg] 129 mm[Hg] [facility] Systolic blood 101 mm[Hg] 101 mm[Hg] [facility] Body temperature 37.536396 Kaylie 37.807403 [facility]lie [facility] Respiratory rate 17 /min 17 /min [facility] 95 % 95 % [facility] [place] saturation in Medical Arterial blood Center by Pulse oximetry Heart rate 96 /min 96 /min [facility] Diastolic blood 57 mm[Hg] 57 mm[Hg] [facility] Body temperature 36.634405 Kaylie 36.197685 [facility] Respiratory rate 17 /min 17 /min [facility] 98 % 98 % [facility] [place] saturation in Medical Arterial blood Center by Pulse oximetry Heart rate 71 /min 71 /min [facility] Diastolic blood 68 mm[Hg] 68 mm[Hg] [facility] [place] Systolic blood 137 mm[Hg] 137 mm[Hg] [facility] Body temperature 36.776507 Kaylie 36.909980 [facility] Respiratory rate 17 /min 17 /min [facility] 98 % 98 % [facility] [place] saturation in Medical Arterial blood Center by Pulse oximetry Heart rate 73 /min 73 /min [facility] Diastolic blood 62 mm[Hg] 62 mm[Hg] [facility] Systolic blood 133 mm[Hg] 133 mm[Hg] [facility] Body temperature 36.169483 Kaylie 36.017798 [facility] Respiratory rate 18 /min 18 /min [facility] 99 % 99 % [facility] [place] saturation in Medical Arterial blood Center by Pulse oximetry Heart rate 78 /min 78 /min [facility] Diastolic blood 81 mm[Hg] 81 mm[Hg] [facility] pressure [facility] Center Systolic blood 158 mm[Hg] 158 mm[Hg] [facility] Body weight 150.455905 kg 150.028548 kg [facility] Body temperature 36.997343 Kaylie 36.861102 [facility] Respiratory rate 16 /min 16 /min [facility] 98 % 98 % [place] saturation in Medical Arterial blood Center by Pulse oximetry Heart rate 93 /min 93 /min [facility] Body height 177.282244 cm 177.131980 cm [facility] Diastolic blood 92 mm[Hg] 92 mm[Hg] [facility] pressure [facility] Center Systolic blood 140 mm[Hg] 140 mm[Hg] [facility] Body mass index 47.4 kg/m2 47.4 kg/m2 [facility] (BMI) [Ratio] [facility] Center Body weight 68.243919 kg 68.676443 kg [facility] Body temperature 36.218341 Kaylie 36.545083 [facility] Respiratory rate 18 /min 18 /min [facility] 93 % 93 % [place] saturation in Medical Arterial blood Center by Pulse oximetry Heart rate 93 /min 93 /min [facility] Diastolic blood 87 mm[Hg] 87 mm[Hg] [facility] Systolic blood 160 mm[Hg] 160 mm[Hg] [facility] Body temperature 36.500125 Kaylie 36.252984 Kaylie [facility] Respiratory rate 19 /min 19 /min [facility] 97 % 97 % [facility] [place] saturation in Medical Arterial blood Center by Pulse oximetry Heart rate 88 /min 88 /min [facility] Diastolic blood 80 mm[Hg] 80 mm[Hg] [facility] pressure [facility] Center Systolic blood 150 mm[Hg] 150 mm[Hg] [facility] Body temperature 36.063586 Kaylie 36.640873 [facility] Respiratory rate 17 /min 17 /min [facility] 97 % 97 % [facility] [place] saturation in Medical Arterial blood Center by Pulse oximetry Heart rate 75 /min 75 /min [facility] Diastolic blood 68 mm[Hg] 68 mm[Hg] [facility] pressure [facility] Center Systolic blood 134 mm[Hg] 134 mm[Hg] [facility] Body temperature 36.015122 Kaylie 36.272563 [facility] Respiratory rate 18 /min 18 /min [facility] 96 % 96 % [facility] [place] saturation in Medical Arterial blood Center by Pulse oximetry Heart rate 85 /min 85 /min [facility] Diastolic blood 82 mm[Hg] 82 mm[Hg] [facility] [place] Systolic blood 138 mm[Hg] 138 mm[Hg] [facility] [place] Body temperature 36.928235 Kaylie 36.136844 [facility] Respiratory rate 18 /min 18 /min [facility] 97 % 97 % [facility] [place] saturation in Medical Arterial blood Center by Pulse oximetry Heart rate 88 /min 88 /min [facility] Diastolic blood 72 mm[Hg] 72 mm[Hg] [facility] [place] Systolic blood 137 mm[Hg] 137 mm[Hg] [facility] Body temperature 37.859663 Kaylie 37.212060 [facility] Respiratory rate 18 /min 18 /min [facility] 93 % 93 % [facility] [place] saturation in Medical Arterial blood Center by Pulse oximetry Heart rate 94 /min 94 /min [facility] Diastolic blood 70 mm[Hg] 70 mm[Hg] [facility] Systolic blood 132 mm[Hg] 132 mm[Hg] [facility] Body temperature 36.602809 Kaylie 36.454370 [facility] Respiratory rate 18 /min 18 /min [facility] 97 % 97 % [facility] [place] saturation in Medical Arterial blood Center by Pulse oximetry Heart rate 76 /min 76 /min [facility] Diastolic blood 76 mm[Hg] 76 mm[Hg] [facility] Systolic blood 144 mm[Hg] 144 mm[Hg] [facility] Body temperature 36.518160 Kaylie 36.947899 Kaylie [facility] Respiratory rate 19 /min 19 /min [facility] 97 % 97 % [facility] [place] saturation in Medical Arterial blood Center by Pulse oximetry Heart rate 77 /min 77 /min [facility] Diastolic blood 86 mm[Hg] 86 mm[Hg] [facility] pressure [facility] Center Systolic blood 153 mm[Hg] 153 mm[Hg] [facility] [place] Body temperature 36.013243 Kaylie 36.308342 [facility] Respiratory rate 17 /min 17 /min [facility] 98 % 98 % [facility] [place] saturation in Medical Arterial blood Center by Pulse oximetry Heart rate 75 /min 75 /min [facility] Diastolic blood 75 mm[Hg] 75 mm[Hg] [facility] Systolic blood 129 mm[Hg] 129 mm[Hg] [facility] [place] Body temperature 37.744143 Kaylie 37.505277 [facility] Respiratory rate 18 /min 18 /min [facility] 97 % 97 % [facility] [place] saturation in Medical Arterial blood Center by Pulse oximetry Heart rate 76 /min 76 /min [facility] Diastolic blood 77 mm[Hg] 77 mm[Hg] [facility] [place] Systolic blood 130 mm[Hg] 130 mm[Hg] [facility] [place] Body temperature 36.239007 Kaylie 36.400774 Kay[facility] Respiratory rate 17 /min 17 /min [facility] 98 % 98 % [facility] [place] saturation in Medical Arterial blood Center by Pulse oximetry Heart rate 78 /min 78 /min [facility] Diastolic blood 68 mm[Hg] 68 mm[Hg] [facility] Systolic blood 129 mm[Hg] 129 mm[Hg] [facility] Body temperature 36.449151 Kaylie 36.606712 [facility] Respiratory rate 19 /min 19 /min [facility] 98 % 98 % [facility] [place] saturation in Medical Arterial blood Center by Pulse oximetry Heart rate 92 /min 92 /min [facility] Diastolic blood 64 mm[Hg] 64 mm[Hg] [facility] Systolic blood 125 mm[Hg] 125 mm[Hg] [facility] [place] Body temperature 36.126308 Kaylie 36.537985 [facility] Respiratory rate 20 /min 20 /min [facility] 98 % 98 % [facility] [place] saturation in Medical Arterial blood Center by Pulse oximetry Heart rate 93 /min 93 /min [facility] Diastolic blood 92 mm[Hg] 92 mm[Hg] [facility] pressure [facility] Systolic blood 150 mm[Hg] 150 mm[Hg] [facility] Body temperature 36.538645 Kaylie 36.698151 [facility] Respiratory rate 18 /min 18 /min [facility] 97 % 97 % [facility] [place] saturation in Medical Arterial blood Center by Pulse oximetry Heart rate 79 /min 79 /min [facility] Diastolic blood 78 mm[Hg] 78 mm[Hg] [facility] pressure [facility] Center Systolic blood 138 mm[Hg] 138 mm[Hg] [facility] [place] Body temperature 36.816446 Kaylie 36.971078 [facility] Respiratory rate 17 /min 17 /min [facility] 95 % 95 % [facility] [place] saturation in Medical Arterial blood Center by Pulse oximetry Heart rate 72 /min 72 /min [facility] Diastolic blood 67 mm[Hg] 67 mm[Hg] [facility] Systolic blood 134 mm[Hg] 134 mm[Hg] [facility] [place] Body temperature 36.402183 Kaylie 36.040705 [facility] Respiratory rate 19 /min 19 /min [facility] 95 % 95 % [facility] [place] saturation in Medical Arterial blood Center by Pulse oximetry Heart rate 68 /min 68 /min [facility] Diastolic blood 68 mm[Hg] 68 mm[Hg] [facility] Systolic blood 144 mm[Hg] 144 mm[Hg] [facility] Body temperature 36.622179 Kalyie 36.891199 [facility] Respiratory rate 17 /min 17 /min [facility] 96 % 96 % [facility] [place] saturation in Medical Arterial blood Center by Pulse oximetry Heart rate 78 /min 78 /min [facility] Diastolic blood 76 mm[Hg] 76 mm[Hg] [facility] Systolic blood 140 mm[Hg] 140 mm[Hg] [facility] Body weight 99.608719 kg 99.499691 kg [facility] Body temperature 36.214663 Kaylie 36.169344 [facility] Respiratory rate 19 /min 19 /min [facility] 98 % 98 % [facility] saturation in Medical Arterial blood Center by Pulse oximetry Heart rate 88 /min 88 /min [facility] Body height 177.626425 cm 177.952342 cm [facility] Diastolic blood 82 mm[Hg] 82 mm[Hg] [facility] pressure [facility] Systolic blood 148 mm[Hg] 148 mm[Hg] [facility] Body mass index 31.5 kg/m2 31.5 kg/m2 [facility] (BMI) [Ratio] [facility] Body temperature 36.673075 Kaylie 36.232940 [facility] Respiratory rate 17 /min 17 /min [facility] 98 % 98 % [facility] saturation in Medical Arterial blood Center by Pulse oximetry Heart rate 94 /min 94 /min [facility] Diastolic blood 90 mm[Hg] 90 mm[Hg] [facility] Systolic blood 160 mm[Hg] 160 mm[Hg] [facility] Respiratory rate 18 /min 18 /min [facility] 98 % 98 % [place] saturation in Medical Arterial blood Center by Pulse oximetry Heart rate 85 /min 85 /min [facility] Diastolic blood 85 mm[Hg] 85 mm[Hg] [facility] [place] Systolic blood 142 mm[Hg] 142 mm[Hg] [facility] Body temperature 37.497396 Kaylie 37.009023 [facility] Body weight 110.761348 kg 110.560739 kg [facility] Body temperature 36.261508 Kaylie 36.502697 [facility] Respiratory rate 18 /min 18 /min [facility] 98 % 98 % [place] saturation in Medical Arterial blood Center by Pulse oximetry Heart rate 84 /min 84 /min [facility] Body height 182.357157 cm 182.261367 cm [facility] Diastolic blood 58 mm[Hg] 58 mm[Hg] [facility] Systolic blood 148 mm[Hg] 148 mm[Hg] [facility] Body mass index 32.8 kg/m2 32.8 kg/m2 [facility] (BMI) [Ratio] [facility] Body temperature 36.424728 Kaylie 36.953955 [facility] Respiratory rate 18 /min 18 /min [facility] 97 % 97 % [facility] saturation in Medical Arterial blood Center by Pulse oximetry Heart rate 118 /min 118 /min [facility] Diastolic blood 58 mm[Hg] 58 mm[Hg] [facility] pressure [facility] Center Systolic blood 120 mm[Hg] 120 mm[Hg] [facility] Body temperature 36.660545 Kaylie 36.392076 [facility] Respiratory rate 20 /min 20 /min [facility] 96 % 96 % [facility] saturation in Medical Arterial blood Center by Pulse oximetry Heart rate 143 /min 143 /min [facility] Diastolic blood 40 mm[Hg] 40 mm[Hg] [facility] Systolic blood 119 mm[Hg] 119 mm[Hg] [facility] Respiratory rate 20 /min 20 /min [facility] 98 % 98 % [facility] saturation in Medical Arterial blood Center by Pulse oximetry Heart rate 92 /min 92 /min [facility] Diastolic blood 86 mm[Hg] 86 mm[Hg] [facility] Systolic blood 134 mm[Hg] 134 mm[Hg] [facility] Body temperature 36.325966 Kaylie 36.859652 [facility] Respiratory rate 18 /min 18 /min [facility] 98 % 98 % [facility] [place] saturation in Medical Arterial blood Center by Pulse oximetry Heart rate 87 /min 87 /min [facility] Diastolic blood 90 mm[Hg] 90 mm[Hg] [facility] [facility] Systolic blood 145 mm[Hg] 145 mm[Hg] [facility] Body temperature 36.652760 Kaylie 36.118016 [facility] Respiratory rate 16 /min 16 /min [facility] 97 % 97 % [place] saturation in Medical Arterial blood Center by Pulse oximetry Heart rate 85 /min 85 /min [facility] Diastolic blood 76 mm[Hg] 76 mm[Hg] [facility] Systolic blood 123 mm[Hg] 123 mm[Hg] [facility] Body temperature 36.506583 Kaylie 36.946050 [facility] Body weight 125.301011 kg 125.575376 kg [facility] Body temperature 36.723300 Kaylie 36.959435 [facility] Respiratory rate 20 /min 20 /min [facility] 95 % 95 % [place] saturation in Medical Arterial blood Center by Pulse oximetry Heart rate 100 /min 100 /min [facility] Body height 177.374910 cm 177.000575 cm [facility] Diastolic blood 76 mm[Hg] 76 mm[Hg] [facility] Systolic blood 124 mm[Hg] 124 mm[Hg] [facility] Body mass index 39.5 kg/m2 39.5 kg/m2 [facility] (BMI) [Ratio] [facility] Body temperature 36.800483 Kaylie 36.977889 [facility] Respiratory rate 17 /min 17 /min [facility] 96 % 96 % [place] saturation in Medical Arterial blood Center by Pulse oximetry Heart rate 77 /min 77 /min [facility] Diastolic blood 71 mm[Hg] 71 mm[Hg] [facility] Systolic blood 122 mm[Hg] 122 mm[Hg] [facility] Body temperature 37.339407 Kaylie 37.148056 [facility] Respiratory rate 19 /min 19 /min [facility] 96 % 96 % [place] saturation in Medical Arterial blood Center by Pulse oximetry Heart rate 72 /min 72 /min [facility] Diastolic blood 64 mm[Hg] 64 mm[Hg] [facility] Systolic blood 140 mm[Hg] 140 mm[Hg] [facility] Body temperature 36.221022 Kaylie 36.124869 [facility] Respiratory rate 18 /min 18 /min [facility] 97 % 97 % [place] saturation in Medical Arterial blood Center by Pulse oximetry Heart rate 68 /min 68 /min [facility] Diastolic blood 86 mm[Hg] 86 mm[Hg] [facility] Systolic blood 135 mm[Hg] 135 mm[Hg] [facility] Body temperature 36.528163 Kaylie 36.408841 [facility] Respiratory rate 18 /min 18 /min [facility] 97 % 97 % [place] saturation in Medical Arterial blood Center by Pulse oximetry Heart rate 78 /min 78 /min [facility] Diastolic blood 69 mm[Hg] 69 mm[Hg] [facility] pressure Medical Center Systolic blood 134 mm[Hg] 134 mm[Hg] [facility] Body temperature 36.534179 Kaylie 36.108475 [facility] Respiratory rate 18 /min 18 /min [facility] 96 % 96 % [place] saturation in Medical Arterial blood Center by Pulse oximetry Heart rate 87 /min 87 /min [facility] Diastolic blood 80 mm[Hg] 80 mm[Hg] [facility] Systolic blood 135 mm[Hg] 135 mm[Hg] [facility] Heart rate 77 /min 77 /min [facility] Diastolic blood 77 mm[Hg] 77 mm[Hg] [facility] Systolic blood 142 mm[Hg] 142 mm[Hg] [facility] Body temperature 36.656148 Kaylie 36.647033 [facility] Respiratory rate 18 /min 18 /min [facility] 97 % 97 % [place] saturation in Medical Arterial blood Center by Pulse oximetry Body temperature 36.070471 Kaylie 36.094609 [facility] Respiratory rate 18 /min 18 /min [facility] 98 % 98 % [place] saturation in Medical Arterial blood Center by Pulse oximetry Heart rate 78 /min 78 /min [facility] Diastolic blood 80 mm[Hg] 80 mm[Hg] [facility] pressure Medical Center Systolic blood 124 mm[Hg] 124 mm[Hg] [facility] [place] Body temperature 36.929454 Kaylie 36.145493 [facility] Respiratory rate 17 /min 17 /min [facility] 96 % 96 % [place] saturation in Medical Arterial blood Center by Pulse oximetry Heart rate 80 /min 80 /min [facility] Diastolic blood 88 mm[Hg] 88 mm[Hg] [facility] Systolic blood 133 mm[Hg] 133 mm[Hg] [facility] Body temperature 36.601832 Kaylie 36.338645 [facility] Respiratory rate 17 /min 17 /min [facility] 99 % 99 % [place] saturation in Medical Arterial blood Center by Pulse oximetry Heart rate 80 /min 80 /min [facility] Diastolic blood 78 mm[Hg] 78 mm[Hg] [facility] Systolic blood 132 mm[Hg] 132 mm[Hg] [facility] Body weight 90.872646 kg 90.610782 kg [facility] Measured Medical [place] Body height 177.379179 cm 177.206130 cm [facility] Body mass index 28.4 kg/m2 28.4 kg/m2 [facility] (BMI) [Ratio] [facility] Body temperature 36.691725 Kaylie 36.755242 [facility] Respiratory rate 18 /min 18 /min [facility] 96 % 96 % [place] saturation in Medical Arterial blood Center by Pulse oximetry Heart rate 90 /min 90 /min [facility] Diastolic blood 58 mm[Hg] 58 mm[Hg] [facility] Systolic blood 111 mm[Hg] 111 mm[Hg] [facility] Body temperature 36.439054 Kaylie 36.108581 [facility] Respiratory rate 18 /min 18 /min [facility] 95 % 95 % [place] saturation in Medical Arterial blood Center by Pulse oximetry Heart rate 94 /min 94 /min [facility] Diastolic blood 55 mm[Hg] 55 mm[Hg] [facility] Systolic blood 114 mm[Hg] 114 mm[Hg] [facility] Body weight 110.043598 kg 110.390938 kg [facility] Body temperature 37.496426 Kaylie 37.853508 [facility] Respiratory rate 18 /min 18 /min [facility] 98 % 98 % [place] saturation in Medical Arterial blood Center by Pulse oximetry Heart rate 88 /min 88 /min [facility] Body height 185.109963 cm 185.718078 cm [facility] Diastolic blood 78 mm[Hg] 78 mm[Hg] [facility] pressure Medical Center Systolic blood 143 mm[Hg] 143 mm[Hg] [facility] Body mass index 31.9 kg/m2 31.9 kg/m2 [facility] (BMI) [Ratio] [facility] Diastolic blood 79 mm[Hg] 79 mm[Hg] [facility] pressure Medical Center Systolic blood 122 mm[Hg] 122 mm[Hg] [facility] Body temperature 36.542171 Kaylie 36.395002 [facility] Respiratory rate 18 /min 18 /min [facility] 98 % 98 % [facility] saturation in Medical Arterial blood Center by Pulse oximetry Heart rate 88 /min 88 /min [facility] Diastolic blood 51 mm[Hg] 51 mm[Hg] [facility] Systolic blood 81 mm[Hg] 81 mm[Hg] [facility] Body temperature 37.272417 Kaylie 37.879378 [facility] Respiratory rate 18 /min 18 /min [facility] 96 % 96 % [place] saturation in Medical Arterial blood Center by Pulse oximetry Heart rate 98 /min 98 /min [facility] Diastolic blood 90 mm[Hg] 90 mm[Hg] [facility] Systolic blood 148 mm[Hg] 148 mm[Hg] [facility] Body temperature 37.017958 Kaylie 37.632927 [facility] Respiratory rate 18 /min 18 /min [facility] 95 % 95 % [place] saturation in Medical Arterial blood Center by Pulse oximetry Heart rate 99 /min 99 /min [facility] Diastolic blood 79 mm[Hg] 79 mm[Hg] [facility] pressure Medical Center Systolic blood 132 mm[Hg] 132 mm[Hg] [facility] Body temperature 36.691365 Kaylie 36.919156 [facility] Respiratory rate 18 /min 18 /min [facility] 96 % 96 % [place] saturation in Medical Arterial blood Center by Pulse oximetry Heart rate 97 /min 97 /min [facility] Diastolic blood 64 mm[Hg] 64 mm[Hg] [facility] Systolic blood 118 mm[Hg] 118 mm[Hg] [facility] Body temperature 36.959413 Kaylie 36.385085 [facility] Respiratory rate 18 /min 18 /min [facility] 96 % 96 % [place] saturation in Medical Arterial blood Center by Pulse oximetry Heart rate 95 /min 95 /min [facility] Diastolic blood 68 mm[Hg] 68 mm[Hg] [facility] pressure [facility] Center Systolic blood 127 mm[Hg] 127 mm[Hg] [facility] [place] Body temperature 37.069069 Kaylie 37.498623 [facility] Respiratory rate 18 /min 18 /min [facility] 95 % 95 % [place] saturation in Medical Arterial blood Center by Pulse oximetry Heart rate 94 /min 94 /min [facility] Diastolic blood 69 mm[Hg] 69 mm[Hg] [facility] [place] Systolic blood 115 mm[Hg] 115 mm[Hg] [facility] Body temperature 36.038477 Kaylie 36.252086 [facility] Respiratory rate 17 /min 17 /min [facility] 95 % 95 % [place] saturation in Medical Arterial blood Center by Pulse oximetry Heart rate 90 /min 90 /min [facility] Diastolic blood 60 mm[Hg] 60 mm[Hg] [facility] [place] Systolic blood 109 mm[Hg] 109 mm[Hg] [facility] Body temperature 36.247812 Kaylie 36.086174 [facility] Respiratory rate 16 /min 16 /min [facility] Heart rate 85 /min 85 /min [facility] Diastolic blood 73 mm[Hg] 73 mm[Hg] [facility] Systolic blood 140 mm[Hg] 140 mm[Hg] [facility] Body temperature 36.151659 Kaylie 36.445926 [facility] Respiratory rate 18 /min 18 /min [facility] 95 % 95 % [place] saturation in Medical Arterial blood Center by Pulse oximetry Heart rate 90 /min 90 /min [facility] Diastolic blood 76 mm[Hg] 76 mm[Hg] [facility] Systolic blood 131 mm[Hg] 131 mm[Hg] [facility] Body temperature 36.726191 Kaylie 36.008106 [facility] Respiratory rate 18 /min 18 /min [facility] 94 % 94 % [facility] saturation in Medical Arterial blood Center by Pulse oximetry Heart rate 88 /min 88 /min [facility] Diastolic blood 74 mm[Hg] 74 mm[Hg] [facility] pressure Medical Center Systolic blood 152 mm[Hg] 152 mm[Hg] [facility] Body temperature 36.465183 Kaylie 36.503171 [facility] Respiratory rate 17 /min 17 /min [facility] Heart rate 99 /min 99 /min [facility] Diastolic blood 52 mm[Hg] 52 mm[Hg] [facility] Systolic blood 111 mm[Hg] 111 mm[Hg] [facility] Body weight 79.062672 kg 79.487122 kg [facility] [place] Body temperature 36.573524 Kaylie 36.192339 [facility] Respiratory rate 19 /min 19 /min [facility] 95 % 95 % [facility] saturation in Medical Arterial blood Center by Pulse oximetry Heart rate 74 /min 74 /min [facility] Body height 170.307913 cm 170.320159 cm [facility] Diastolic blood 86 mm[Hg] 86 mm[Hg] [facility] Systolic blood 152 mm[Hg] 152 mm[Hg] [facility] Body mass index 27.4 kg/m2 27.4 kg/m2 [facility] (BMI) [Ratio] [facility] Center Body temperature 36.746535 Kaylie 36.306291 [facility] Respiratory rate 18 /min 18 /min [facility] 98 % 98 % [facility] saturation in Medical Arterial blood Center by Pulse oximetry Heart rate 96 /min 96 /min [facility] Diastolic blood 78 mm[Hg] 78 mm[Hg] [facility] pressure [facility] Center Systolic blood 143 mm[Hg] 143 mm[Hg] [facility] Body temperature 36.030818 Kaylie 36.703107 [facility] Respiratory rate 19 /min 19 /min [facility] 96 % 96 % [place] saturation in Medical Arterial blood Center by Pulse oximetry Heart rate 105 /min 105 /min [facility] Diastolic blood 66 mm[Hg] 66 mm[Hg] [facility] pressure [facility] Center Systolic blood 113 mm[Hg] 113 mm[Hg] [facility] Body temperature 36.012013 Kaylie 36.376965 [facility] Respiratory rate 18 /min 18 /min [facility] 96 % 96 % [place] saturation in Medical Arterial blood Center by Pulse oximetry Heart rate 92 /min 92 /min [facility] Diastolic blood 70 mm[Hg] 70 mm[Hg] [facility] Systolic blood 128 mm[Hg] 128 mm[Hg] [facility] [place] Body temperature 36.468261 Kaylie 36.971051 [facility] Respiratory rate 17 /min 17 /min [facility] 97 % 97 % [place] saturation in Medical Arterial blood Center by Pulse oximetry Heart rate 78 /min 78 /min [facility] Diastolic blood 78 mm[Hg] 78 mm[Hg] [facility] Systolic blood 138 mm[Hg] 138 mm[Hg] [facility] Body temperature 36.489983 Kaylie 36.951351 [facility] Respiratory rate 18 /min 18 /min [facility] 95 % 95 % [place] saturation in Medical Arterial blood Center by Pulse oximetry Heart rate 90 /min 90 /min [facility] Diastolic blood 77 mm[Hg] 77 mm[Hg] [facility] Systolic blood 147 mm[Hg] 147 mm[Hg] [facility] [place] Body temperature 37.249160 Kaylie 37.042305 [facility] Respiratory rate 18 /min 18 /min [facility] 95 % 95 % [place] saturation in Medical Arterial blood Center by Pulse oximetry Heart rate 74 /min 74 /min [facility] Diastolic blood 65 mm[Hg] 65 mm[Hg] [facility] Systolic blood 127 mm[Hg] 127 mm[Hg] [facility] Body temperature 36.475769 Kaylie 36.520662 [facility] Respiratory rate 18 /min 18 /min [facility] 96 % 96 % [place] saturation in Medical Arterial blood Center by Pulse oximetry Heart rate 90 /min 90 /min [facility] Diastolic blood 60 mm[Hg] 60 mm[Hg] [facility] pressure [facility] Center Systolic blood 131 mm[Hg] 131 mm[Hg] [facility] Body temperature 36.447973 Kaylie 36.987321 [facility] Respiratory rate 17 /min 17 /min [facility] 98 % 98 % [place] saturation in Medical Arterial blood Center by Pulse oximetry Heart rate 73 /min 73 /min [facility] Diastolic blood 75 mm[Hg] 75 mm[Hg] [facility] pressure [facility] Center Systolic blood 139 mm[Hg] 139 mm[Hg] [facility] Body temperature 36.546219 Kaylie 36.447781 [facility] Respiratory rate 18 /min 18 /min [facility] 99 % 99 % [place] saturation in Medical Arterial blood Center by Pulse oximetry Heart rate 103 /min 103 /min [facility] Diastolic blood 43 mm[Hg] 43 mm[Hg] [facility] pressure [facility] Center Systolic blood 117 mm[Hg] 117 mm[Hg] [facility] [place] Body temperature 37.566957 Kaylie 37.631859 [facility] Respiratory rate 17 /min 17 /min [facility] 95 % 95 % [place] saturation in Medical Arterial blood Center by Pulse oximetry Heart rate 97 /min 97 /min [facility] Diastolic blood 83 mm[Hg] 83 mm[Hg] [facility] pressure [facility] Center Systolic blood 154 mm[Hg] 154 mm[Hg] [facility] Body temperature 36.269409 Kaylie 36.072185 [facility] Respiratory rate 18 /min 18 /min [facility] 98 % 98 % [place] saturation in Medical Arterial blood Center by Pulse oximetry Heart rate 91 /min 91 /min [facility] Diastolic blood 90 mm[Hg] 90 mm[Hg] [facility] pressure [facility] Center Systolic blood 158 mm[Hg] 158 mm[Hg] [facility] Body temperature 36.131699 Kaylie 36.497134 [facility] Respiratory rate 18 /min 18 /min [facility] 96 % 96 % [place] saturation in Medical Arterial blood Center by Pulse oximetry Heart rate 91 /min 91 /min [facility] Diastolic blood 98 mm[Hg] 98 mm[Hg] [facility] pressure [facility] Center Systolic blood 149 mm[Hg] 149 mm[Hg] [facility] Body temperature 36.100391 Kaylie 36.934264 [facility] Respiratory rate 18 /min 18 /min [facility] 98 % 98 % [place] saturation in Medical Arterial blood Center by Pulse oximetry Heart rate 84 /min 84 /min [facility] Diastolic blood 67 mm[Hg] 67 mm[Hg] [facility] Systolic blood 128 mm[Hg] 128 mm[Hg] [facility] Body weight 90.189290 kg 90.406174 kg [facility] Body temperature 36.034606 Kaylie 36.281273 [facility] Respiratory rate 17 /min 17 /min [facility] 96 % 96 % [place] saturation in Medical Arterial blood Center by Pulse oximetry Heart rate 79 /min 79 /min [facility] Body height 177.496701 cm 177.853850 cm [facility] Diastolic blood 74 mm[Hg] 74 mm[Hg] [facility] Systolic blood 120 mm[Hg] 120 mm[Hg] [facility] Body mass index 28.6 kg/m2 28.6 kg/m2 [facility] (BMI) [Ratio] [facility] Center Body temperature 37.498737 Kaylie 37.130644 [facility] Respiratory rate 18 /min 18 /min [facility] Heart rate 95 /min 95 /min [facility] Diastolic blood 114 mm[Hg] 114 mm[Hg] [facility] Systolic blood 179 mm[Hg] 179 mm[Hg] [facility] Body temperature 36.978146 Kaylie 36.439396 [facility] Respiratory rate 18 /min 18 /min [facility] 96 % 96 % [place] saturation in Medical Arterial blood Center by Pulse oximetry Heart rate 85 /min 85 /min [facility] Diastolic blood 90 mm[Hg] 90 mm[Hg] [facility] pressure [facility] Center Systolic blood 144 mm[Hg] 144 mm[Hg] [facility] Body temperature 36.248360 Kaylie 36.647569 [facility] Respiratory rate 18 /min 18 /min [facility] 95 % 95 % [place] saturation in Medical Arterial blood Center by Pulse oximetry Heart rate 84 /min 84 /min [facility] Diastolic blood 80 mm[Hg] 80 mm[Hg] [facility] pressure [facility] Center Systolic blood 138 mm[Hg] 138 mm[Hg] [facility] Body weight 110.718700 kg 110.112920 kg [facility] Body temperature 36.980190 Kaylie 36.553559 [facility] Respiratory rate 18 /min 18 /min [facility] 98 % 98 % [place] saturation in Medical Arterial blood Center by Pulse oximetry Heart rate 78 /min 78 /min [facility] Body height 185.925496 cm 185.226752 cm [facility] Diastolic blood 78 mm[Hg] 78 mm[Hg] [facility] pressure [facility] Center Systolic blood 148 mm[Hg] 148 mm[Hg] [facility] Body mass index 31.9 kg/m2 31.9 kg/m2 [facility] (BMI) [Ratio] [facility] Body temperature 36.209838 Kaylie 36.775572 [facility] Respiratory rate 20 /min 20 /min [facility] 94 % 94 % [place] saturation in Medical Arterial blood Center by Pulse oximetry Heart rate 80 /min 80 /min [facility] Diastolic blood 69 mm[Hg] 69 mm[Hg] [facility] pressure [facility] Center Systolic blood 125 mm[Hg] 125 mm[Hg] [facility] Body temperature 36.097187 Kaylie 36.622586 [facility] Respiratory rate 18 /min 18 /min [facility] 100 % 100 % [place] saturation in Medical Arterial blood Center by Pulse oximetry Heart rate 78 /min 78 /min [facility] Diastolic blood 70 mm[Hg] 70 mm[Hg] [facility] Systolic blood 130 mm[Hg] 130 mm[Hg] [facility] Body temperature 36.975448 Kaylie 36.241181 [facility] Respiratory rate 18 /min 18 /min [facility] 95 % 95 % [place] saturation in Medical Arterial blood Center by Pulse oximetry Heart rate 93 /min 93 /min [facility] Diastolic blood 83 mm[Hg] 83 mm[Hg] [facility] Systolic blood 163 mm[Hg] 163 mm[Hg] [facility] Body temperature 36.978035 Kaylie 36.461924 [facility] Respiratory rate 20 /min 20 /min [facility] 94 % 94 % [facility] saturation in Medical Arterial blood Center by Pulse oximetry Heart rate 94 /min 94 /min [facility] Diastolic blood 90 mm[Hg] 90 mm[Hg] [facility] Systolic blood 130 mm[Hg] 130 mm[Hg] [facility] Body weight 104.786504 kg 104.031100 kg [facility] Body temperature 36.523318 Kaylie 36.838852 [facility] Respiratory rate 17 /min 17 /min [facility] 100 % 100 % [facility] saturation in Medical Arterial blood Center by Pulse oximetry Heart rate 91 /min 91 /min [facility] Body height 177.594347 cm 177.329368 cm [facility] Diastolic blood 97 mm[Hg] 97 mm[Hg] [facility] Systolic blood 123 mm[Hg] 123 mm[Hg] [facility] Body mass index 33.0 kg/m2 33.0 kg/m2 [facility] (BMI) [Ratio] [facility] Body temperature 37.084741 Kaylie 37.296875 [facility] Respiratory rate 18 /min 18 /min [facility] 97 % 97 % [facility] saturation in Medical Arterial blood Center by Pulse oximetry Heart rate 90 /min 90 /min [facility] Diastolic blood 76 mm[Hg] 76 mm[Hg] [facility] Systolic blood 148 mm[Hg] 148 mm[Hg] [facility] Body temperature 37.769984 Kaylie 37.089966 [facility] Respiratory rate 18 /min 18 /min [facility] 96 % 96 % [place] saturation in Medical Arterial blood Center by Pulse oximetry Heart rate 96 /min 96 /min [facility] Diastolic blood 97 mm[Hg] 97 mm[Hg] [facility] pressure [facility] Center Systolic blood 176 mm[Hg] 176 mm[Hg] [facility] Body temperature 36.560782 Kaylie 36.951371 [facility] Respiratory rate 18 /min 18 /min [facility] [facility] 99 % 99 % [facility] [place] saturation in [facility] Arter[facility] blood Center by Pulse oximetry Heart rate 98 /min 98 /min [facility] Diastolic blood 91 mm[Hg] 91 mm[Hg] [facility] [place] Systolic blood 152 mm[Hg] 152 mm[Hg] [facility] Body temperature 37.967736 Kaylie 37.901920 [facility] Respiratory rate 18 /min 18 /min [facility] Oxygen 94 % 94 % [facility] [place] saturation in Medical Arterial blood Center by Pulse oximetry Heart rate 84 /min 84 /min [facility] Diastolic blood 81 mm[Hg] 81 mm[Hg] [facility] [place] Systolic blood 144 mm[Hg] 144 mm[Hg] [facility] Body temperature 36.924231 Kaylie 36.100595 [facility] Respiratory rate 19 /min 19 /min [facility] Oxygen 99 % 99 % [facility] [place] saturation in Medical Arterial blood Center by Pulse oximetry Heart rate 80 /min 80 /min [facility] Diastolic blood 78 mm[Hg] 78 mm[Hg] [facility] Systolic blood 139 mm[Hg] 139 mm[Hg] [facility] Body temperature 36.933283 Kaylie 36.088899 [facility] Respiratory rate 19 /min 19 /min [facility] Oxygen 97 % 97 % [facility] [place] saturation in Medical Arterial blood Center by Pulse oximetry Heart rate 71 /min 71 /min [facility] Diastolic blood 88 mm[Hg] 88 mm[Hg] [facility] Systolic blood 138 mm[Hg] 138 mm[Hg] [facility] Body temperature 36.323278 Kaylie 36.973030 [facility] Respiratory rate 18 /min 18 /min [facility] Oxygen 98 % 98 % [place] saturation in Medical Arterial blood Center by Pulse oximetry Heart rate 97 /min 97 /min [facility] Diastolic blood 90 mm[Hg] 90 mm[Hg] [facility] Systolic blood 156 mm[Hg] 156 mm[Hg] [facility] [place] Body temperature 36.691160 Kaylie 36.453976 [facility] Respiratory rate 18 /min 18 /min [facility] Oxygen 95 % 95 % [place] saturation in Medical Arterial blood Center by Pulse oximetry Heart rate 98 /min 98 /min [facility] Diastolic blood 93 mm[Hg] 93 mm[Hg] [facility] [place] Systolic blood 163 mm[Hg] 163 mm[Hg] [facility] Body temperature 36.001381 Kaylie 36.576372 [facility] Respiratory rate 18 /min 18 /min [facility] Oxygen 95 % 95 % [place] saturation in Medical Arterial blood Center by Pulse oximetry Heart rate 84 /min 84 /min [facility] Diastolic blood 83 mm[Hg] 83 mm[Hg] [facility] [place] Systolic blood 130 mm[Hg] 130 mm[Hg] [facility] Body temperature 36.919803 Kaylie 36.564100 [facility] Respiratory rate 17 /min 17 /min [facility] Oxygen 96 % 96 % [facility] [place] saturation in Medical Arterial blood Center by Pulse oximetry Heart rate 81 /min 81 /min [facility] Diastolic blood 71 mm[Hg] 71 mm[Hg] [facility] Systolic blood 118 mm[Hg] 118 mm[Hg] [facility] Body temperature 37.335907 Kaylie 37.059700 [facility] Respiratory rate 18 /min 18 /min [facility] Oxygen 91 % 91 % [facility] [place] saturation in Medical Arterial blood Center by Pulse oximetry Heart rate 107 /min 107 /min [facility] Diastolic blood 79 mm[Hg] 79 mm[Hg] [facility] pressure Medical Center Systolic blood 144 mm[Hg] 144 mm[Hg] [facility] Body temperature 36.556736 Kaylie 36.237408 [facility] Respiratory rate 18 /min 18 /min [facility] Oxygen 90 % 90 % [place] saturation in Medical Arterial blood Center by Pulse oximetry Heart rate 96 /min 96 /min [facility] Diastolic blood 43 mm[Hg] 43 mm[Hg] [facility] Systolic blood 100 mm[Hg] 100 mm[Hg] [facility] Body temperature 36.649969 Kaylie 36.432145 [facility] Respiratory rate 18 /min 18 /min [facility] Oxygen 98 % 98 % [facility] [place] saturation in Medical Arterial blood Center by Pulse oximetry Heart rate 96 /min 96 /min [facility] Diastolic blood 80 mm[Hg] 80 mm[Hg] [facility] [place] Systolic blood 132 mm[Hg] 132 mm[Hg] [facility] Body temperature 37.615237 Kaylie 37.675538 [facility] Respiratory rate 18 /min 18 /min [facility] Oxygen 97 % 97 % [place] saturation in Medical Arterial blood Center by Pulse oximetry Heart rate 98 /min 98 /min [facility] Diastolic blood 57 mm[Hg] 57 mm[Hg] [facility] Systolic blood 141 mm[Hg] 141 mm[Hg] [facility] Body temperature 36.390736 Kaylie 36.992882 [facility] Respiratory rate 20 /min 20 /min [facility] Oxygen 97 % 97 % [facility] [place] saturation in Medical Arterial blood Center by Pulse oximetry Heart rate 100 /min 100 /min [facility] Diastolic blood 71 mm[Hg] 71 mm[Hg] [facility] Systolic blood 140 mm[Hg] 140 mm[Hg] [facility] [place] Body temperature 36.141046 Kaylie 36.578176 [facility] Respiratory rate 18 /min 18 /min [facility] Oxygen 98 % 98 % [facility] [place] saturation in Medical Arterial blood Center by Pulse oximetry Heart rate 96 /min 96 /min [facility] Diastolic blood 67 mm[Hg] 67 mm[Hg] [facility] pressure Medical Center Systolic blood 132 mm[Hg] 132 mm[Hg] [facility] [place] Body temperature 36.201517 Kaylie 36.647805 [facility] Respiratory rate 17 /min 17 /min [facility] Oxygen 98 % 98 % [facility] [place] saturation in Medical Arterial blood Center by Pulse oximetry Heart rate 87 /min 87 /min [facility] Diastolic blood 71 mm[Hg] 71 mm[Hg] [facility] [place] Systolic blood 133 mm[Hg] 133 mm[Hg] [facility] Body temperature 36.199258 Kaylie 36.962131 [facility] Respiratory rate 17 /min 17 /min [facility] Oxygen 95 % 95 % [place] saturation in Medical Arterial blood Center by Pulse oximetry Heart rate 100 /min 100 /min [facility] Diastolic blood 78 mm[Hg] 78 mm[Hg] [facility] [place] Systolic blood 124 mm[Hg] 124 mm[Hg] [facility] [place] Body temperature 36.954990 Kaylie 36.966889 [facility] Respiratory rate 19 /min 19 /min [facility]xygen 95 % 95 % [place] saturation in Medical Arterial blood Center by Pulse oximetry Heart rate 103 /min 103 /min [facility] Diastolic blood 65 mm[Hg] 65 mm[Hg] [facility] Systolic blood 126 mm[Hg] 126 mm[Hg] [facility] Body temperature 36.561913 Kaylie 36.507302 [facility] Respiratory rate 20 /min 20 /min [facility] Oxygen 94 % 94 % [place] saturation in Medical Arterial blood Center by Pulse oximetry Heart rate 105 /min 105 /min [facility] Diastolic blood 61 mm[Hg] 61 mm[Hg] [facility] Systolic blood 122 mm[Hg] 122 mm[Hg] [facility] Body temperature 36.852932 Kaylie 36.366041 [facility] Respiratory rate 18 /min 18 /min [facility] Oxygen 97 % 97 % [place] saturation in Medical Arterial blood Center by Pulse oximetry Heart rate 97 /min 97 /min [facility] Diastolic blood 76 mm[Hg] 76 mm[Hg] [facility] pressure [facility] Center Systolic blood 132 mm[Hg] 132 mm[Hg] [facility] Body temperature 36.296749 Kaylie 36.878986 [facility] Respiratory rate 17 /min 17 /min [facility] Oxygen 98 % 98 % [place] saturation in Medical Arterial blood Center by Pulse oximetry Heart rate 75 /min 75 /min [facility] Diastolic blood 35 mm[Hg] 35 mm[Hg] [facility] Systolic blood 139 mm[Hg] 139 mm[Hg] [facility] Body temperature 36.514290 Kaylie 36.162832 [facility] Respiratory rate 17 /min 17 /min [facility]xygen 98 % 98 % [place] saturation in Medical Arterial blood Center by Pulse oximetry Heart rate 81 /min 81 /min [facility] Diastolic blood 83 mm[Hg] 83 mm[Hg] [facility] Systolic blood 135 mm[Hg] 135 mm[Hg] [facility] Body temperature 36.946745 Kaylie 36.852153 [facility] Respiratory rate 17 /min 17 /min [facility] Oxygen 97 % 97 % [place] saturation in Medical Arterial blood Center by Pulse oximetry Heart rate 87 /min 87 /min [facility] Diastolic blood 57 mm[Hg] 57 mm[Hg] [facility] Systolic blood 92 mm[Hg] 92 mm[Hg] [facility] Body temperature 36.655350 Kaylie 36.476755 [facility] Respiratory rate 17 /min 17 /min [facility] Oxygen 98 % 98 % [place] saturation in Medical Arterial blood Center by Pulse oximetry Heart rate 80 /min 80 /min [facility] Diastolic blood 78 mm[Hg] 78 mm[Hg] [facility] Systolic blood 123 mm[Hg] 123 mm[Hg] [facility] Body weight 95.164111 kg 95.874446 kg [facility] Body temperature 36.348929 Kaylie 36.884762 [facility] Respiratory rate 17 /min 17 /min [facility] Oxygen 96 % 96 % [facility] saturation in Medical Arterial blood Center by Pulse oximetry Heart rate 90 /min 90 /min [facility] Body height 177.161992 cm 177.048984 cm [facility] Diastolic blood 73 mm[Hg] 73 mm[Hg] [facility] Systolic blood 132 mm[Hg] 132 mm[Hg] [facility] Body mass index 30.1 kg/m2 30.1 kg/m2 [facility] (BMI) [Ratio] Medical Center Body temperature 36.856835 Kaylie 36.761603 [facility] Respiratory rate 18 /min 18 /min [facility] Heart rate 88 /min 88 /min [facility] Diastolic blood 71 mm[Hg] 71 mm[Hg] [facility] pressure [facility] Center Systolic blood 147 mm[Hg] 147 mm[Hg] [facility] Body temperature 36.137604 Kaylie 36.715907 [facility] Respiratory rate 20 /min 20 /min [facility] Heart rate 86 /min 86 /min [facility] Diastolic blood 89 mm[Hg] 89 mm[Hg] [facility] Systolic blood 145 mm[Hg] 145 mm[Hg] [facility] Body weight 114.296986 kg 114.238472 kg [facility] Body height 177.007318 cm 177.702176 cm [facility] Body mass index 36.06 kg/m2 36.06 kg/m2 [facility] (BMI) [Ratio] [facility] Center Body temperature 37.929239 Kaylie 37.751987 [facility] Respiratory rate 18 /min 18 /min [facility] Heart rate 89 /min 89 /min [facility] Diastolic blood 73 mm[Hg] 73 mm[Hg] [facility] Systolic blood 120 mm[Hg] 120 mm[Hg] [facility] Body temperature 37.425982 Kaylie 37.249913 [facility] Respiratory rate 18 /min 18 /min [facility] Heart rate 90 /min 90 /min [facility] Diastolic blood 107 mm[Hg] 107 mm[Hg] [facility] pressure [facility] Center Systolic blood 160 mm[Hg] 160 mm[Hg] [facility] Body temperature 37.734429 Kaylie 37.725589 [facility] Respiratory rate 18 /min 18 /min [facility] Heart rate 80 /min 80 /min [facility] Diastolic blood 68 mm[Hg] 68 mm[Hg] [facility] pressure [facility] Center Systolic blood 128 mm[Hg] 128 mm[Hg] [facility] Body weight 114.480792 kg 114.404150 kg [facility] Body height 177.690810 cm 177.409082 cm [facility] Body mass index 36.06 kg/m2 36.06 kg/m2 [facility] (BMI) [Ratio] [facility] Oxygen 95 % 95 % [place] saturation in Medical Arterial blood Center by Pulse oximetry Body weight 114.981646 kg 114.156696 kg [facility] Body height 177.477969 cm 177.133252 cm [facility] Body mass index 36.06 kg/m2 36.06 kg/m2 [facility] (BMI) [Ratio] [facility] Oxygen 95 % 95 % [place] saturation in Medical Arterial blood Center by Pulse oximetry Oxygen 95 % 95 % [place] saturation in Medical Arterial blood Center by Pulse oximetry Body height 177.349994 cm 177.349726 cm [facility] Body mass index 36.06 kg/m2 36.06 kg/m2 [facility] (BMI) [Ratio] [facility] Body weight 114.131123 kg 114.304958 kg [facility] Measured [facility] Body weight 114.675571 kg 114.390740 kg [facility] Me[facility] Body height 177.060912 cm 177.141807 cm [facility] Body mass index 36.06 kg/m2 36.06 kg/m2 [facility] (BMI) [Ratio] [facility] Center Diastolic blood 86 mm[Hg] 86 mm[Hg] [facility] pressure [facility] Center Systolic blood 146 mm[Hg] 146 mm[Hg] [facility] Body temperature 37.601010 Kaylie 37.098603 [facility] Body temperature 37.174530 Kaylie 37.529567 [facility] Respiratory rate 18 /min 18 /min [facility] Heart rate 94 /min 94 /min [facility] Diastolic blood 87 mm[Hg] 87 mm[Hg] [facility] Systolic blood 151 mm[Hg] 151 mm[Hg] [facility] Body weight 114.607576 kg 114.227125 kg [facility] Measured [facility] Body height 177.902494 cm 177.072529 cm [facility] Body mass index 36.06 kg/m2 36.06 kg/m2 [facility] (BMI) [Ratio] [facility] Center Body weight 114.328859 kg 114.716112 kg [facility] Measured [facility] Body height 177.036470 cm 177.397796 cm [facility] Body mass index 36.06 kg/m2 36.06 kg/m2 [facility] (BMI) [Ratio] [facility] Center Body weight 114.192973 kg 114.576911 kg [facility] Body temperature 37.878649 Kaylie 37.603602 [facility] Body temperature 36.528097 Kaylie 36.534257 [facility] Respiratory rate 18 /min 18 /min [facility] Respiratory rate 17 /min 17 /min [facility] Heart rate 84 /min 84 /min [facility] Heart rate 78 /min 78 /min [facility] Body height 177.322452 cm 177.115926 cm [facility] Diastolic blood 96 mm[Hg] 96 mm[Hg] [facility] Systolic blood 176 mm[Hg] 176 mm[Hg] [facility] Diastolic blood 96 mm[Hg] 96 mm[Hg] [facility] Systolic blood 149 mm[Hg] 149 mm[Hg] [facility] Body mass index 36.06 kg/m2 36.06 kg/m2 [facility] (BMI) [Ratio] [facility] Oxygen 99 % 99 % [facility] saturation in Medical Arterial blood Center by Pulse oximetry Body temperature 36.755500 Kaylie 36.572743 [facility] Respiratory rate 18 /min 18 /min [facility] Heart rate 80 /min 80 /min [facility] Diastolic blood 99 mm[Hg] 99 mm[Hg] [facility] pressure [facility] Center Systolic blood 149 mm[Hg] 149 mm[Hg] [facility] Oxygen 99 % 99 % [place] saturation in Medical Arterial blood Center by Pulse oximetry Systolic blood 144 mm[Hg] 144 mm[Hg] [facility] [place] Body temperature 36.849080 Kaylie 36.277941 [facility] Respiratory rate 17 /min 17 /min [facility] Oxygen 98 % 98 % [place] saturation in Medical Arterial blood Center by Pulse oximetry Heart rate 78 /min 78 /min [facility] Diastolic blood 94 mm[Hg] 94 mm[Hg] [facility] [place] Respiratory rate 20 /min 20 /min [facility] Oxygen 96 % 96 % [place] saturation in Medical Arterial blood Center by Pulse oximetry Heart rate 88 /min 88 /min [facility] Oxygen 97 % 97 % [place] saturation in Medical Arterial blood Center by Pulse oximetry Body temperature 36.499123 Kaylie 36.584005 [facility] Respiratory rate 18 /min 18 /min [facility] Oxygen 98 % 98 % [place] saturation in Medical Arterial blood Center by Pulse oximetry Heart rate 87 /min 87 /min [facility] Diastolic blood 77 mm[Hg] 77 mm[Hg] [facility] pressure [facility] Center Systolic blood 112 mm[Hg] 112 mm[Hg] [facility] [place] Body temperature 36.295171 Kaylie 36.159487 [facility] Respiratory rate 17 /min 17 /min [facility] Oxygen 98 % 98 % [place] saturation in Medical Arterial blood Center by Pulse oximetry Heart rate 81 /min 81 /min [facility] Diastolic blood 67 mm[Hg] 67 mm[Hg] [facility] pressure [facility] Center Systolic blood 132 mm[Hg] 132 mm[Hg] [facility] Body temperature 37.735144 Kaylie 37.523718 [facility] Respiratory rate 16 /min 16 /min [facility] Oxygen 98 % 98 % [place] saturation in Medical Arterial blood Center by Pulse oximetry Heart rate 78 /min 78 /min [facility] Diastolic blood 65 mm[Hg] 65 mm[Hg] [facility] pressure [facility] Center Systolic blood 136 mm[Hg] 136 mm[Hg] [facility] Body temperature 36.570320 Kaylie 36.923999 [facility] Respiratory rate 17 /min 17 /min [facility] Oxygen 96 % 96 % [place] saturation in Medical Arterial blood Center by Pulse oximetry Heart rate 86 /min 86 /min [facility] Diastolic blood 73 mm[Hg] 73 mm[Hg] [facility] pressure [facility] Center Systolic blood 142 mm[Hg] 142 mm[Hg] [facility] Body temperature 36.560439 Kaylie 36.971145 [facility] Respiratory rate 17 /min 17 /min [facility] Heart rate 79 /min 79 /min [facility] Diastolic blood 87 mm[Hg] 87 mm[Hg] [facility] Systolic blood 138 mm[Hg] 138 mm[Hg] [facility] [place] Body temperature 37.794373 Kaylie 37.595054 [facility] Respiratory rate 17 /min 17 /min [facility] Heart rate 99 /min 99 /min [facility] Diastolic blood 99 mm[Hg] 99 mm[Hg] [facility] Systolic blood 147 mm[Hg] 147 mm[Hg] [facility] Oxygen 97 % 97 % [place] saturation in Medical Arterial blood Center by Pulse oximetry Body temperature 36.803343 Kaylie 36.030121 [facility] Respiratory rate 18 /min 18 /min [facility] Oxygen 96 % 96 % [place] saturation in Medical Arterial blood Center by Pulse oximetry Heart rate 78 /min 78 /min [facility] Diastolic blood 78 mm[Hg] 78 mm[Hg] [facility] pressure [facility] Center Systolic blood 138 mm[Hg] 138 mm[Hg] [facility] Body temperature 35.973119 Kaylie 35.601630 [facility] Respiratory rate 17 /min 17 /min [facility] Oxygen 98 % 98 % [place] saturation in Medical Arterial blood Center by Pulse oximetry Heart rate 77 /min 77 /min [facility] Diastolic blood 79 mm[Hg] 79 mm[Hg] [facility] [place] Systolic blood 143 mm[Hg] 143 mm[Hg] [facility] [place] Body temperature 36.350553 Kaylie 36.092329 [facility] Respiratory rate 16 /min 16 /min [facility] Heart rate 81 /min 81 /min [facility] Diastolic blood 76 mm[Hg] 76 mm[Hg] [facility] [place] Systolic blood 138 mm[Hg] 138 mm[Hg] [facility] Body temperature 36.487818 Kaylie 36.270201 [facility] Respiratory rate 17 /min 17 /min [facility] Oxygen 97 % 97 % [place] saturation in Medical Arterial blood Center by Pulse oximetry Heart rate 85 /min 85 /min [facility] Diastolic blood 67 mm[Hg] 67 mm[Hg] [facility] [place] Systolic blood 132 mm[Hg] 132 mm[Hg] [facility] Body temperature 36.277427 Kaylie 36.696145 [facility] Respiratory rate 17 /min 17 /min [facility] Oxygen 94 % 94 % [place] saturation in Medical Arterial blood Center by Pulse oximetry Heart rate 70 /min 70 /min [facility] Diastolic blood 72 mm[Hg] 72 mm[Hg] [facility] [place] Systolic blood 125 mm[Hg] 125 mm[Hg] [facility] Body temperature 36.687717 Kaylie 36.529503 [facility] Respiratory rate 18 /min 18 /min [facility] Heart rate 88 /min 88 /min [facility] Diastolic blood 69 mm[Hg] 69 mm[Hg] [facility] Systolic blood 134 mm[Hg] 134 mm[Hg] [facility] Body temperature 36.966820 Kaylie 36.211322 [facility] Respiratory rate 19 /min 19 /min [facility] Oxygen 96 % 96 % [place] saturation in Medical Arterial blood Center by Pulse oximetry Heart rate 87 /min 87 /min [facility] Diastolic blood 71 mm[Hg] 71 mm[Hg] [facility] [place] Systolic blood 123 mm[Hg] 123 mm[Hg] [facility] Body weight 104.422457 kg 104.192116 kg [facility] Body temperature 36.425423 Kaylie 36.665996 [facility] Respiratory rate 17 /min 17 /min [facility] Oxygen 95 % 95 % [facility] saturation in Medical Arterial blood Center by Pulse oximetry Heart rate 89 /min 89 /min [facility] Body height 177.447329 cm 177.757922 cm [facility] Diastolic blood 69 mm[Hg] 69 mm[Hg] [facility] [place] Systolic blood 127 mm[Hg] 127 mm[Hg] [facility] Body mass index 33.0 kg/m2 33.0 kg/m2 [facility] (BMI) [Ratio] [facility] Center Body temperature 36.116307 Kaylie 36.990178 [facility] Respiratory rate 19 /min 19 /min [facility] Heart rate 81 /min 81 /min [facility] Diastolic blood 88 mm[Hg] 88 mm[Hg] [facility] [place] Systolic blood 136 mm[Hg] 136 mm[Hg] [facility] Body temperature 36.144009 Kaylie 36.434735 [facility] Respiratory rate 18 /min 18 /min [facility] Heart rate 92 /min 92 /min [facility] Diastolic blood 98 mm[Hg] 98 mm[Hg] [facility] Systolic blood 148 mm[Hg] 148 mm[Hg] [facility] Body temperature 36.129985 Kaylie 36.275274 [facility] Respiratory rate 19 /min 19 /min [facility] Oxygen 100 % 100 % [facility] saturation in Medical Arterial blood Center by Pulse oximetry Heart rate 100 /min 100 /min [facility] Diastolic blood 61 mm[Hg] 61 mm[Hg] [facility] Systolic blood 126 mm[Hg] 126 mm[Hg] [facility] Body temperature 36.821245 Kaylie 36.593579 [facility] Respiratory rate 17 /min 17 /min [facility] 96 % 96 % [place] saturation in [facility] blood Center by Pulse oximetry Heart rate 78 /min 78 /min [facility] Diastolic blood 89 mm[Hg] 89 mm[Hg] [facility] pressure Medical Center Systolic blood 146 mm[Hg] 146 mm[Hg] [facility] Body temperature 36.402033 Kaylie 36.062533 [facility] Respiratory rate 17 /min 17 /min [facility] 98 % 98 % [facility] saturation in Medical Arterial blood Center by Pulse oximetry Heart rate 90 /min 90 /min [facility] Diastolic blood 63 mm[Hg] 63 mm[Hg] [facility] pressure [facility] Center Systolic blood 145 mm[Hg] 145 mm[Hg] [facility] Respiratory rate 18 /min 18 /min [facility] 99 % 99 % [facility] [place] saturation in Medical Arterial blood Center by Pulse oximetry Heart rate 78 /min 78 /min [facility] Diastolic blood 84 mm[Hg] 84 mm[Hg] [facility] Systolic blood 132 mm[Hg] 132 mm[Hg] [facility] Body temperature 36.103169 Kaylie 36.737232 [facility] Body weight 110.757313 kg 110.152328 kg [facility] Body temperature 36.040210 Kaylie 36.129290 [facility] Respiratory rate 18 /min 18 /min [facility] 98 % 98 % [place] saturation in Medical Arterial blood Center by Pulse oximetry Heart rate 89 /min 89 /min [facility] Body height 180.139283 cm 180.254632 cm [facility] Diastolic blood 88 mm[Hg] 88 mm[Hg] [facility] pressure [facility] Center Systolic blood 154 mm[Hg] 154 mm[Hg] [facility] Body mass index 33.8 kg/m2 33.8 kg/m2 [facility] (BMI) [Ratio] [facility] Body temperature 36.649268 Kaylie 36.219786 [facility] Respiratory rate 17 /min 17 /min [facility] 99 % 99 % [facility] [place] saturation in Medical Arterial blood Center by Pulse oximetry Heart rate 81 /min 81 /min [facility] Diastolic blood 71 mm[Hg] 71 mm[Hg] [facility] pressure [facility] Center Systolic blood 118 mm[Hg] 118 mm[Hg] [facility] Body temperature 36.383341 Kaylie 36.280520 [facility] Respiratory rate 18 /min 18 /min [facility] 99 % 99 % [facility] [place] saturation in Medical Arterial blood Center by Pulse oximetry Heart rate 78 /min 78 /min [facility] Diastolic blood 77 mm[Hg] 77 mm[Hg] [facility] pressure Medical Center Systolic blood 129 mm[Hg] 129 mm[Hg] [facility] [place] Body temperature 37.126750 Kaylie 37.218436 [facility] Respiratory rate 17 /min 17 /min [facility] 97 % 97 % [facility] [place] saturation in Medical Arterial blood Center by Pulse oximetry Heart rate 79 /min 79 /min [facility] Diastolic blood 75 mm[Hg] 75 mm[Hg] [facility] Systolic blood 136 mm[Hg] 136 mm[Hg] [facility] [place] Body temperature 36.660475 Kaylie 36.879220 [facility] Respiratory rate 17 /min 17 /min [facility] 98 % 98 % [facility] [place] saturation in Medical Arterial blood Center by Pulse oximetry Heart rate 88 /min 88 /min [facility] Diastolic blood 81 mm[Hg] 81 mm[Hg] [facility] Systolic blood 159 mm[Hg] 159 mm[Hg] [facility] Body temperature 36.723837 Kaylie 36.218617 [facility] Respiratory rate 18 /min 18 /min [facility] 97 % 97 % [facility] [place] saturation in Medical Arterial blood Center by Pulse oximetry Heart rate 88 /min 88 /min [facility] Diastolic blood 75 mm[Hg] 75 mm[Hg] [facility] Systolic blood 145 mm[Hg] 145 mm[Hg] [facility] Body temperature 36.084995 Kaylie 36.015046 [facility] Respiratory rate 17 /min 17 /min [facility] 97 % 97 % [place] saturation in Medical Arterial blood Center by Pulse oximetry Heart rate 90 /min 90 /min [facility] Diastolic blood 78 mm[Hg] 78 mm[Hg] [facility] pressure Medical Center Systolic blood 160 mm[Hg] 160 mm[Hg] [facility] Body temperature 37.430612 Kaylie 37.535621 [facility] Respiratory rate 18 /min 18 /min [facility] 95 % 95 % [place] saturation in Medical Arterial blood Center by Pulse oximetry Heart rate 93 /min 93 /min [facility] Diastolic blood 80 mm[Hg] 80 mm[Hg] [facility] pressure Medical Center Systolic blood 198 mm[Hg] 198 mm[Hg] [facility] Body temperature 37.288821 Kaylie 37.598971 [facility] Respiratory rate 18 /min 18 /min [facility] 95 % 95 % [place] saturation in Medical Arterial blood Center by Pulse oximetry Heart rate 92 /min 92 /min [facility] Diastolic blood 71 mm[Hg] 71 mm[Hg] [facility] pressure [facility] Center Systolic blood 139 mm[Hg] 139 mm[Hg] [facility] [place] Body temperature 36.309652 Kaylie 36.149518 [facility] Respiratory rate 17 /min 17 /min [facility] 98 % 98 % [place] saturation in Medical Arterial blood Center by Pulse oximetry Heart rate 89 /min 89 /min [facility] Diastolic blood 83 mm[Hg] 83 mm[Hg] [facility] pressure Medical Center Systolic blood 159 mm[Hg] 159 mm[Hg] [facility] Body temperature 36.461561 Kaylie 36.394090 [facility] Respiratory rate 18 /min 18 /min [facility] 97 % 97 % [place] saturation in Medical Arterial blood Center by Pulse oximetry Heart rate 81 /min 81 /min [facility] Diastolic blood 74 mm[Hg] 74 mm[Hg] [facility] pressure [facility] Center Systolic blood 117 mm[Hg] 117 mm[Hg] [facility] Body temperature 37.531476 Kaylie 37.429331 [facility] Respiratory rate 19 /min 19 /min [facility] 98 % 98 % [place] saturation in Medical Arterial blood Center by Pulse oximetry Heart rate 88 /min 88 /min [facility] Diastolic blood 87 mm[Hg] 87 mm[Hg] [facility] pressure [facility] Center Systolic blood 149 mm[Hg] 149 mm[Hg] [facility] Body temperature 37.303811 Kaylie 37.342154 [facility] Respiratory rate 20 /min 20 /min [facility] 97 % 97 % [place] saturation in Medical Arterial blood Center by Pulse oximetry Heart rate 92 /min 92 /min [facility] Diastolic blood 85 mm[Hg] 85 mm[Hg] [facility] pressure [facility] Center Systolic blood 152 mm[Hg] 152 mm[Hg] [facility] Body temperature 36.066989 Kaylie 36.455880 [facility] Respiratory rate 18 /min 18 /min [facility] 100 % 100 % [place] saturation in Medical Arterial blood Center by Pulse oximetry Heart rate 70 /min 70 /min [facility] Diastolic blood 74 mm[Hg] 74 mm[Hg] [facility] pressure [facility] Center Systolic blood 129 mm[Hg] 129 mm[Hg] [facility] Body weight 99.443477 kg 99.248780 kg [facility] Body temperature 36.568148 Kaylie 36.554045 [facility] Respiratory rate 18 /min 18 /min [facility] 98 % 98 % [place] saturation in Medical Arterial blood Center by Pulse oximetry Heart rate 78 /min 78 /min [facility] Body height 182.700615 cm 182.910485 cm [facility] Diastolic blood 74 mm[Hg] 74 mm[Hg] [facility] pressure [facility] Center Systolic blood 128 mm[Hg] 128 mm[Hg] [facility] Body mass index 29.8 kg/m2 29.8 kg/m2 [facility] (BMI) [Ratio] [facility] Center Body temperature 36.105563 Kaylie 36.540821 [facility] Respiratory rate 20 /min 20 /min [facility] 94 % 94 % [place] saturation in Medical Arterial blood Center by Pulse oximetry Heart rate 92 /min 92 /min [facility] Diastolic blood 87 mm[Hg] 87 mm[Hg] [facility] pressure [facility] Center Systolic blood 143 mm[Hg] 143 mm[Hg] [facility] Body temperature 36.886808 Kaylie 36.570406 [facility] Respiratory rate 18 /min 18 /min [facility] 96 % 96 % [place] saturation in Medical Arterial blood Center by Pulse oximetry Heart rate 87 /min 87 /min [facility] Diastolic blood 84 mm[Hg] 84 mm[Hg] [facility] pressure [facility] Center Systolic blood 136 mm[Hg] 136 mm[Hg] [facility] Body temperature 37.465632 Kaylie 37.226697 [facility] Respiratory rate 18 /min 18 /min [facility] 96 % 96 % [facility] saturation in Medical Arterial blood Center by Pulse oximetry Heart rate 90 /min 90 /min [facility] Diastolic blood 63 mm[Hg] 63 mm[Hg] [facility] pressure [facility] Center Systolic blood 136 mm[Hg] 136 mm[Hg] [facility] [place] Body temperature 36.397109 Kaylie 36.287821 [facility] Respiratory rate 18 /min 18 /min [facility] 96 % 96 % [facility] saturation in Medical Arterial blood Center by Pulse oximetry Heart rate 109 /min 109 /min [facility] Diastolic blood 71 mm[Hg] 71 mm[Hg] [facility] pressure [facility] Center Systolic blood 130 mm[Hg] 130 mm[Hg] [facility] Body temperature 36.743548 Kaylie 36.281525 [facility] Respiratory rate 18 /min 18 /min [facility] Heart rate 132 /min 132 /min [facility] Diastolic blood 76 mm[Hg] 76 mm[Hg] [facility] pressure [facility] Center Systolic blood 137 mm[Hg] 137 mm[Hg] [facility] Body temperature 36.065564 Kaylie 36.914165 [facility] Respiratory rate 17 /min 17 /min [facility] 97 % 97 % [place] saturation in Medical Arterial blood Center by Pulse oximetry Heart rate 104 /min 104 /min [facility] Diastolic blood 81 mm[Hg] 81 mm[Hg] [facility] pressure [facility] Center Systolic blood 143 mm[Hg] 143 mm[Hg] [facility] Body temperature 36.529434 Kaylie 36.425153 [facility] Respiratory rate 19 /min 19 /min [facility] 95 % 95 % [place] saturation in Medical Arterial blood Center by Pulse oximetry Heart rate 92 /min 92 /min [facility] Diastolic blood 96 mm[Hg] 96 mm[Hg] [facility] Systolic blood 155 mm[Hg] 155 mm[Hg] [facility] Body temperature 37.127779 Kaylie 37.209774 [facility] Respiratory rate 18 /min 18 /min [facility] 95 % 95 % [place] saturation in Medical Arterial blood Center by Pulse oximetry Heart rate 104 /min 104 /min [facility] Diastolic blood 78 mm[Hg] 78 mm[Hg] [facility] Systolic blood 155 mm[Hg] 155 mm[Hg] [facility] Body temperature 36.437032 Kaylie 36.336196 [facility] Respiratory rate 17 /min 17 /min [facility] Heart rate 95 /min 95 /min [facility] Diastolic blood 93 mm[Hg] 93 mm[Hg] [facility] Systolic blood 156 mm[Hg] 156 mm[Hg] [facility] Body temperature 36.077533 Kalyie 36.388360 [facility] Respiratory rate 18 /min 18 /min [facility] 98 % 98 % [place] saturation in Medical Arterial blood Center by Pulse oximetry Heart rate 98 /min 98 /min [facility] Diastolic blood 94 mm[Hg] 94 mm[Hg] [facility] Systolic blood 156 mm[Hg] 156 mm[Hg] [facility] Body temperature 36.723826 Kaylie 36.011376 [facility] Respiratory rate 18 /min 18 /min [facility] 98 % 98 % [facility] [place] saturation in Medical Arterial blood Center by Pulse oximetry Heart rate 91 /min 91 /min [facility] Diastolic blood 96 mm[Hg] 96 mm[Hg] [facility] pressure [facility] Center Systolic blood 146 mm[Hg] 146 mm[Hg] [facility] Respiratory rate 16 /min 16 /min [facility] 95 % 95 % [facility] [place] saturation in Medical Arterial blood Center by Pulse oximetry Heart rate 101 /min 101 /min [facility] Diastolic blood 93 mm[Hg] 93 mm[Hg] [facility] pressure [facility] Center Systolic blood 152 mm[Hg] 152 mm[Hg] [facility] Body temperature 36.739054 Kaylie 36.492082 [facility] Respiratory rate 18 /min 18 /min [facility] 96 % 96 % [place] saturation in Medical Arterial blood Center by Pulse oximetry Heart rate 99 /min 99 /min [facility] Diastolic blood 95 mm[Hg] 95 mm[Hg] [facility] Systolic blood 182 mm[Hg] 182 mm[Hg] [facility] Body temperature 37.829680 Kaylie 37.344537 [facility] Respiratory rate 16 /min 16 /min [facility] 95 % 95 % [place] saturation in Medical Arterial blood Center by Pulse oximetry Heart rate 105 /min 105 /min [facility] Diastolic blood 102 mm[Hg] 102 mm[Hg] [facility] pressure [facility] Center Systolic blood 154 mm[Hg] 154 mm[Hg] [facility] [place] Body temperature 37.537635 Kaylie 37.475675 [facility] Respiratory rate 19 /min 19 /min [facility] 95 % 95 % [place] saturation in Medical Arterial blood Center by Pulse oximetry Heart rate 99 /min 99 /min [facility] Diastolic blood 99 mm[Hg] 99 mm[Hg] [facility] pressure [facility] Center Systolic blood 175 mm[Hg] 175 mm[Hg] [facility] Body temperature 36.713739 Kaylie 36.029411 [facility] Respiratory rate 19 /min 19 /min [facility] 97 % 97 % [place] saturation in Medical Arterial blood Center by Pulse oximetry Heart rate 89 /min 89 /min [facility] Diastolic blood 93 mm[Hg] 93 mm[Hg] [facility] pressure [facility] Center Systolic blood 155 mm[Hg] 155 mm[Hg] [facility] Body temperature 36.035697 Kaylie 36.518027 [facility] Body temperature 36.533522 Kaylie 36.225753 [facility] Respiratory rate 18 /min 18 /min [facility] 97 % 97 % [place] saturation in Medical Arterial blood Center by Pulse oximetry Heart rate 76 /min 76 /min [facility] Diastolic blood 72 mm[Hg] 72 mm[Hg] [facility] pressure [facility] Center Systolic blood 138 mm[Hg] 138 mm[Hg] [facility] Body temperature 36.820973 Kaylie 36.338258 [facility] Respiratory rate 17 /min 17 /min [facility] 96 % 96 % [place] saturation in Medical Arterial blood Center by Pulse oximetry Heart rate 78 /min 78 /min [facility] Diastolic blood 69 mm[Hg] 69 mm[Hg] [facility] pressure [facility] Center Systolic blood 142 mm[Hg] 142 mm[Hg] [facility] [place] Body temperature 36.340033 Kaylie 36.781983 [facility] Respiratory rate 18 /min 18 /min [facility] 97 % 97 % [place] saturation in Medical Arterial blood Center by Pulse oximetry Heart rate 83 /min 83 /min [facility] Diastolic blood 81 mm[Hg] 81 mm[Hg] [facility] Systolic blood 159 mm[Hg] 159 mm[Hg] [facility] Body temperature 36.928036 Kaylie 36.678451 [facility] Respiratory rate 18 /min 18 /min [facility] 94 % 94 % [place] saturation in Medical Arterial blood Center by Pulse oximetry Heart rate 89 /min 89 /min [facility] Diastolic blood 89 mm[Hg] 89 mm[Hg] [facility] pressure [facility] Center Systolic blood 139 mm[Hg] 139 mm[Hg] [facility] Body temperature 36.101580 Kaylie 36.496795 [facility] Respiratory rate 19 /min 19 /min [facility] 95 % 95 % [place] saturation in Medical Arterial blood Center by Pulse oximetry Heart rate 88 /min 88 /min [facility] Diastolic blood 82 mm[Hg] 82 mm[Hg] [facility] pressure [facility] Center Systolic blood 156 mm[Hg] 156 mm[Hg] [facility] Body temperature 36.994358 Kaylie 36.306920 [facility] Respiratory rate 18 /min 18 /min [facility] 98 % 98 % [place] saturation in Medical Arterial blood Center by Pulse oximetry Heart rate 74 /min 74 /min [facility] Diastolic blood 78 mm[Hg] 78 mm[Hg] [facility] pressure [facility] Systolic blood 128 mm[Hg] 128 mm[Hg] [facility] Body temperature 36.257395 Kaylie 36.884451 [facility] Respiratory rate 17 /min 17 /min [facility] 99 % 99 % [place] saturation in Medical Arterial blood Center by Pulse oximetry Heart rate 80 /min 80 /min [facility] Diastolic blood 92 mm[Hg] 92 mm[Hg] [facility] pressure [facility] Center Systolic blood 144 mm[Hg] 144 mm[Hg] [facility] Body weight 88.073973 kg 88.108744 kg [facility] Body temperature 36.857100 Kaylie 36.684813 [facility] Respiratory rate 17 /min 17 /min [facility] 99 % 99 % [place] saturation in Medical Arterial blood Center by Pulse oximetry Heart rate 78 /min 78 /min [facility] Body height 177.382427 cm 177.443408 cm [facility] Diastolic blood 88 mm[Hg] 88 mm[Hg] [facility] pressure [facility] Center Systolic blood 142 mm[Hg] 142 mm[Hg] [facility] Body mass index 27.8 kg/m2 27.8 kg/m2 [facility] (BMI) [Ratio] [facility] Body temperature 37.027869 Kaylie 37.031677 [facility] Respiratory rate 18 /min 18 /min [facility] 96 % 96 % [place] saturation in Medical Arterial blood Center by Pulse oximetry Heart rate 97 /min 97 /min [facility] Diastolic blood 95 mm[Hg] 95 mm[Hg] [facility] pressure [facility] Center Systolic blood 157 mm[Hg] 157 mm[Hg] [facility] Body temperature 37.444566 Kaylie 37.792467 [facility] Respiratory rate 18 /min 18 /min [facility] 95 % 95 % [place] saturation in Medical Arterial blood Center by Pulse oximetry Heart rate 99 /min 99 /min [facility] Diastolic blood 81 mm[Hg] 81 mm[Hg] [facility] pressure [facility] Center Systolic blood 121 mm[Hg] 121 mm[Hg] [facility] Body temperature 36.528614 Kaylie 36.284982 [facility] Respiratory rate 18 /min 18 /min [facility] 97 % 97 % [place] saturation in Medical Arterial blood Center by Pulse oximetry Heart rate 89 /min 89 /min [facility] Diastolic blood 70 mm[Hg] 70 mm[Hg] [facility] Systolic blood 126 mm[Hg] 126 mm[Hg] [facility] Body weight 104.366153 kg 104.690958 kg [facility] Body temperature 36.180773 Kaylie 36.015373 [facility] Respiratory rate 17 /min 17 /min [facility] 98 % 98 % [place] saturation in Medical Arterial blood Center by Pulse oximetry Heart rate 98 /min 98 /min [facility] Body height 177.329515 cm 177.201357 cm [facility] Diastolic blood 60 mm[Hg] 60 mm[Hg] [facility] pressure [facility] Center Systolic blood 116 mm[Hg] 116 mm[Hg] [facility] Body mass index 33.0 kg/m2 33.0 kg/m2 [facility] (BMI) [Ratio] [facility] Body temperature 36.434821 Kaylie 36.029319 [facility] Respiratory rate 17 /min 17 /min [facility] 98 % 98 % [place] saturation in Medical Arterial blood Center by Pulse oximetry Heart rate 84 /min 84 /min [facility] Diastolic blood 91 mm[Hg] 91 mm[Hg] [facility] pressure [facility] Center Systolic blood 153 mm[Hg] 153 mm[Hg] [facility] Body temperature 36.918831 Kaylie 36.141647 [facility] Respiratory rate 16 /min 16 /min [facility] Heart rate 75 /min 75 /min [facility] Diastolic blood 76 mm[Hg] 76 mm[Hg] [facility] Systolic blood 136 mm[Hg] 136 mm[Hg] [facility] [place] Body temperature 36.930285 Kaylie 36.867531 [facility] Respiratory rate 17 /min 17 /min [facility] 98 % 98 % [facility] [place] saturation in Medical Arterial blood Center by Pulse oximetry Heart rate 76 /min 76 /min [facility] Diastolic blood 81 mm[Hg] 81 mm[Hg] [facility] [place] Systolic blood 149 mm[Hg] 149 mm[Hg] [facility] Body temperature 36.730450 Kaylie 36.043632 [facility] Respiratory rate 18 /min 18 /min [facility] 96 % 96 % [facility] [place] saturation in Medical Arterial blood Center by Pulse oximetry Heart rate 89 /min 89 /min [facility] Diastolic blood 68 mm[Hg] 68 mm[Hg] [facility] [place] Systolic blood 132 mm[Hg] 132 mm[Hg] [facility] Body temperature 36.487427 Kaylie 36.214268 [facility] Respiratory rate 18 /min 18 /min [facility] 96 % 96 % [place] saturation in Medical Arterial blood Center by Pulse oximetry Heart rate 84 /min 84 /min [facility] Diastolic blood 71 mm[Hg] 71 mm[Hg] [facility] Systolic blood 119 mm[Hg] 119 mm[Hg] [facility] Body temperature 36.245046 Kaylie 36.020318 [facility] Respiratory rate 19 /min 19 /min [facility] 96 % 96 % [place] saturation in Medical Arterial blood Center by Pulse oximetry Heart rate 83 /min 83 /min [facility] Diastolic blood 66 mm[Hg] 66 mm[Hg] [facility] pressure [facility] Center Systolic blood 123 mm[Hg] 123 mm[Hg] [facility] [place] Body temperature 36.495545 Kaylie 36.224328 [facility] Respiratory rate 18 /min 18 /min [facility] [facility] 98 % 98 % [facility] saturation in [facility] Center by Pulse oximetry Heart rate 76 /min 76 /min [facility] Diastolic blood 80 mm[Hg] 80 mm[Hg] [facility] pressure Medical Center Systolic blood 115 mm[Hg] 115 mm[Hg] [facility] Body temperature 36.308712 Kaylie 36.491438 [facility] Body temperature 36.161716 Kaylie 36.037740 [facility] Respiratory rate 18 /min 18 /min [facility] 96 % 96 % [facility] [place] saturation in Medical Arterial blood Center by Pulse oximetry Heart rate 88 /min 88 /min [facility] Diastolic blood 72 mm[Hg] 72 mm[Hg] [facility] Systolic blood 111 mm[Hg] 111 mm[Hg] [facility] Body temperature 36.143161 Kaylie 36.309010 [facility] Respiratory rate 18 /min 18 /min [facility] 96 % 96 % [facility] [place] saturation in Medical Arterial blood Center by Pulse oximetry Heart rate 87 /min 87 /min [facility] Diastolic blood 85 mm[Hg] 85 mm[Hg] [facility] Systolic blood 136 mm[Hg] 136 mm[Hg] [facility] [place] Body temperature 36.958359 Kaylie 36.850545 [facility] Respiratory rate 17 /min 17 /min [facility] 91 % 91 % [facility] saturation in Medical Arterial blood Center by Pulse oximetry Heart rate 87 /min 87 /min [facility] Diastolic blood 97 mm[Hg] 97 mm[Hg] [facility] Systolic blood 152 mm[Hg] 152 mm[Hg] [facility] Body temperature 36.704142 Kaylie 36.339913 [facility] Respiratory rate 20 /min 20 /min [facility] 91 % 91 % [facility] saturation in Medical Arterial blood Center by Pulse oximetry Heart rate 77 /min 77 /min [facility] Diastolic blood 78 mm[Hg] 78 mm[Hg] [facility] [place] Systolic blood 140 mm[Hg] 140 mm[Hg] [facility] Body weight 105.682038 kg 105.797577 kg [facility] Body temperature 37.872925 Kaylie 37.817391 [facility] Respiratory rate 20 /min 20 /min [facility] 92 % 92 % [facility] [place] saturation in Medical Arterial blood Center by Pulse oximetry Heart rate 89 /min 89 /min [facility] Diastolic blood 79 mm[Hg] 79 mm[Hg] [facility] [place] Systolic blood 155 mm[Hg] 155 mm[Hg] [facility] Body temperature 36.483059 Kaylie 36.103982 [facility] Respiratory rate 16 /min 16 /min [facility] 98 % 98 % [facility] saturation in Medical Arterial blood Center by Pulse oximetry Heart rate 81 /min 81 /min [facility] Diastolic blood 73 mm[Hg] 73 mm[Hg] [facility] [place] Systolic blood 126 mm[Hg] 126 mm[Hg] [facility] Body temperature 36.589542 Kaylie 36.113871 [facility] Respiratory rate 17 /min 17 /min [facility] 98 % 98 % [facility] [place] saturation in Medical Arterial blood Center by Pulse oximetry Heart rate 67 /min 67 /min [facility] Diastolic blood 63 mm[Hg] 63 mm[Hg] [facility] Systolic blood 134 mm[Hg] 134 mm[Hg] [facility] Body temperature 36.238437 Kaylie 36.274701 [facility] Respiratory rate 18 /min 18 /min [facility] 97 % 97 % [facility] [place] saturation in Medical Arterial blood Center by Pulse oximetry Heart rate 69 /min 69 /min [facility] Diastolic blood 73 mm[Hg] 73 mm[Hg] [facility] Systolic blood 119 mm[Hg] 119 mm[Hg] [facility] Body temperature 36.173856 Kaylie 36.027882 [facility] Respiratory rate 17 /min 17 /min [facility] 98 % 98 % [facility] [place] saturation in Medical Arterial blood Center by Pulse oximetry Heart rate 71 /min 71 /min [facility] Diastolic blood 69 mm[Hg] 69 mm[Hg] [facility] pressure Medical Center Systolic blood 127 mm[Hg] 127 mm[Hg] [facility] [place] Body temperature 36.781733 Kaylie 36.487601 [facility] Respiratory rate 16 /min 16 /min [facility] 100 % 100 % [facility] [place] saturation in Medical Arterial blood Center by Pulse oximetry Heart rate 74 /min 74 /min [facility] Diastolic blood 85 mm[Hg] 85 mm[Hg] [facility] [place] Systolic blood 130 mm[Hg] 130 mm[Hg] [facility] [place] Body temperature 37.994161 Kaylie 37.528249 [facility] Respiratory rate 18 /min 18 /min [facility] 95 % 95 % [facility] [place] saturation in Medical Arterial blood Center by Pulse oximetry Heart rate 77 /min 77 /min [facility] Diastolic blood 86 mm[Hg] 86 mm[Hg] [facility] [place] Systolic blood 154 mm[Hg] 154 mm[Hg] [facility] Body temperature 36.542804 Kaylie 36.779587 [facility] Respiratory rate 18 /min 18 /min [facility] 98 % 98 % [facility] [place] saturation in Medical Arterial blood Center by Pulse oximetry Heart rate 80 /min 80 /min [facility] Diastolic blood 90 mm[Hg] 90 mm[Hg] [facility] Systolic blood 170 mm[Hg] 170 mm[Hg] [facility] [place] Body temperature 36.752272 Kaylie 36.290920 [facility] Respiratory rate 18 /min 18 /min [facility] 95 % 95 % [facility] [place] saturation in Medical Arterial blood Center by Pulse oximetry Heart rate 70 /min 70 /min [facility] Diastolic blood 103 mm[Hg] 103 mm[Hg] [facility] Systolic blood 166 mm[Hg] 166 mm[Hg] [facility] Body temperature 36.180211 Kaylie 36.017218 [facility] Respiratory rate 18 /min 18 /min [facility] 97 % 97 % [place] saturation in Medical Arterial blood Center by Pulse oximetry Heart rate 87 /min 87 /min [facility] Diastolic blood 72 mm[Hg] 72 mm[Hg] [facility] pressure [facility] Center Systolic blood 138 mm[Hg] 138 mm[Hg] [facility] Body temperature 36.477753 Kaylie 36.409696 [facility] Respiratory rate 16 /min 16 /min [facility] 98 % 98 % [place] saturation in Medical Arterial blood Center by Pulse oximetry Heart rate 74 /min 74 /min [facility] Diastolic blood 71 mm[Hg] 71 mm[Hg] [facility] Systolic blood 146 mm[Hg] 146 mm[Hg] [facility] Body weight 102.494708 kg 102.255569 kg [facility] Body temperature 36.928129 Kaylie 36.259196 [facility] Respiratory rate 17 /min 17 /min [facility] 98 % 98 % [facility] saturation in Medical Arterial blood Center by Pulse oximetry Heart rate 78 /min 78 /min [facility] Body height 177.849534 cm 177.501965 cm [facility] Diastolic blood 78 mm[Hg] 78 mm[Hg] [facility] Systolic blood 118 mm[Hg] 118 mm[Hg] [facility] Body mass index 32.2 kg/m2 32.2 kg/m2 [facility] (BMI) [Ratio] Medical Center Body temperature 37.026229 Kaylie 37.522821 [facility] Respiratory rate 18 /min 18 /min [facility] 99 % 99 % [facility] saturation in Medical Arterial blood Center by Pulse oximetry Heart rate 88 /min 88 /min [facility] Diastolic blood 79 mm[Hg] 79 mm[Hg] [facility] Systolic blood 134 mm[Hg] 134 mm[Hg] [facility] Body temperature 37.182465 Kaylie 37.556784 [facility] Respiratory rate 18 /min 18 /min [facility] 95 % 95 % [facility] [place] saturation in Medical Arterial blood Center by Pulse oximetry Heart rate 82 /min 82 /min [facility] Diastolic blood 79 mm[Hg] 79 mm[Hg] [facility] pressure Medical Center Systolic blood 144 mm[Hg] 144 mm[Hg] [facility] Body temperature 37.342541 Kaylie 37.583884 [facility] Respiratory rate 18 /min 18 /min [facility] 95 % 95 % [facility] saturation in Medical Arterial blood Center by Pulse oximetry Heart rate 86 /min 86 /min [facility] Diastolic blood 92 mm[Hg] 92 mm[Hg] [facility] Systolic blood 112 mm[Hg] 112 mm[Hg] [facility] Body temperature 37.683485 Kaylie 37.566042 [facility] Respiratory rate 19 /min 19 /min [facility] 90 % 90 % [facility] [place] saturation in Medical Arterial blood Center by Pulse oximetry Heart rate 84 /min 84 /min [facility] Diastolic blood 92 mm[Hg] 92 mm[Hg] [facility] Systolic blood 142 mm[Hg] 142 mm[Hg] [facility] Body temperature 36.370453 Kaylie 36.300406 [facility] Respiratory rate 20 /min 20 /min [facility] 90 % 90 % [facility] [place] saturation in Medical Arterial blood Center by Pulse oximetry Heart rate 88 /min 88 /min [facility] Diastolic blood 97 mm[Hg] 97 mm[Hg] [facility] pressure Medical Center Systolic blood 127 mm[Hg] 127 mm[Hg] [facility] Body temperature 36.175975 Kaylie 36.369189 [facility] Respiratory rate 18 /min 18 /min [facility] 99 % 99 % [facility] [place] saturation in Medical Arterial blood Center by Pulse oximetry Heart rate 78 /min 78 /min [facility] Diastolic blood 80 mm[Hg] 80 mm[Hg] [facility] Systolic blood 144 mm[Hg] 144 mm[Hg] [facility] Body temperature 36.028794 Kaylie 36.705576 [facility] Respiratory rate 18 /min 18 /min [facility] 97 % 97 % [facility] saturation in Medical Arterial blood Center by Pulse oximetry Heart rate 88 /min 88 /min [facility] Diastolic blood 76 mm[Hg] 76 mm[Hg] [facility] Systolic blood 148 mm[Hg] 148 mm[Hg] [facility] Body temperature 36.766433 Kaylie 36.950280 [facility] Respiratory rate 19 /min 19 /min [facility] 96 % 96 % [facility] [place] saturation in Medical Arterial blood Center by Pulse oximetry Heart rate 100 /min 100 /min [facility] Diastolic blood 68 mm[Hg] 68 mm[Hg] [facility] [place] Systolic blood 121 mm[Hg] 121 mm[Hg] [facility] Body temperature 37.533574 Kaylie 37.202887 [facility] Respiratory rate 17 /min 17 /min [facility] 98 % 98 % [facility] [place] saturation in Medical Arterial blood Center by Pulse oximetry Heart rate 105 /min 105 /min [facility] Diastolic blood 65 mm[Hg] 65 mm[Hg] [facility] [place] Systolic blood 119 mm[Hg] 119 mm[Hg] [facility] Body temperature 36.552334 Kaylie 36.758945 [facility] Respiratory rate 17 /min 17 /min [facility] 98 % 98 % [facility] [place] saturation in Medical Arterial blood Center by Pulse oximetry Heart rate 100 /min 100 /min [facility] Diastolic blood 73 mm[Hg] 73 mm[Hg] [facility] Systolic blood 121 mm[Hg] 121 mm[Hg] [facility] [place] Body temperature 36.595011 Kaylie 36.691988 [facility] Respiratory rate 17 /min 17 /min [facility] 98 % 98 % [facility] [place] saturation in Medical Arterial blood Center by Pulse oximetry Heart rate 69 /min 69 /min [facility] Diastolic blood 75 mm[Hg] 75 mm[Hg] [facility] Systolic blood 129 mm[Hg] 129 mm[Hg] [facility] Body temperature 36.249677 Kaylie 36.912393 [facility] Respiratory rate 18 /min 18 /min [facility] 98 % 98 % [facility] [place] saturation in Medical Arterial blood Center by Pulse oximetry Heart rate 82 /min 82 /min [facility] Diastolic blood 73 mm[Hg] 73 mm[Hg] [facility] Systolic blood 128 mm[Hg] 128 mm[Hg] [facility] Body temperature 36.948779 Kaylie 36.576138 [facility] Respiratory rate 18 /min 18 /min [facility] 96 % 96 % [facility] [place] saturation in Medical Arterial blood Center by Pulse oximetry Heart rate 81 /min 81 /min [facility] Diastolic blood 78 mm[Hg] 78 mm[Hg] [facility] Systolic blood 126 mm[Hg] 126 mm[Hg] [facility] Body temperature 36.257076 Kaylie 36.298671 [facility] Respiratory rate 18 /min 18 /min [facility] 97 % 97 % [facility] [place] saturation in Medical Arterial blood Center by Pulse oximetry Heart rate 79 /min 79 /min [facility] Diastolic blood 72 mm[Hg] 72 mm[Hg] [facility] Systolic blood 129 mm[Hg] 129 mm[Hg] [facility] Body temperature 36.485567 Kaylie 36.227813 [facility] Respiratory rate 17 /min 17 /min [facility] 98 % 98 % [facility] [place] saturation in Medical Arterial blood Center by Pulse oximetry Heart rate 88 /min 88 /min [facility] Diastolic blood 71 mm[Hg] 71 mm[Hg] [facility] Systolic blood 126 mm[Hg] 126 mm[Hg] [facility] Body temperature 36.623095 Kaylie 36.822597 [facility] Respiratory rate 18 /min 18 /min [facility] 98 % 98 % [facility] [place] saturation in Medical Arterial blood Center by Pulse oximetry Heart rate 76 /min 76 /min [facility] Diastolic blood 72 mm[Hg] 72 mm[Hg] [facility] pressure [facility] Center Systolic blood 126 mm[Hg] 126 mm[Hg] [facility] Systolic blood 132 mm[Hg] 132 mm[Hg] [facility] Body temperature 36.825986 Kaylie 36.594259 [facility] Respiratory rate 17 /min 17 /min [facility] 97 % 97 % [facility] [place] saturation in Medical Arterial blood Center by Pulse oximetry Heart rate 90 /min 90 /min [facility] Diastolic blood 85 mm[Hg] 85 mm[Hg] [facility] Body temperature 37.796559 Kaylie 37.141620 [facility] Respiratory rate 18 /min 18 /min [facility] 95 % 95 % [facility] [place] saturation in Medical Arterial blood Center by Pulse oximetry Heart rate 95 /min 95 /min [facility] Diastolic blood 96 mm[Hg] 96 mm[Hg] [facility] [place] Systolic blood 147 mm[Hg] 147 mm[Hg] [facility] Body temperature 36.611203 Kaylie 36.707793 [facility] Respiratory rate 17 /min 17 /min [facility] 95 % 95 % [facility] [place] saturation in Medical Arterial blood Center by Pulse oximetry Heart rate 94 /min 94 /min [facility] Diastolic blood 90 mm[Hg] 90 mm[Hg] [facility] Systolic blood 163 mm[Hg] 163 mm[Hg] [facility] [place] Body temperature 36.439999 Kaylie 36.255827 [facility] Respiratory rate 17 /min 17 /min [facility] 98 % 98 % [facility] [place] saturation in Medical Arterial blood Center by Pulse oximetry Heart rate 96 /min 96 /min [facility] Diastolic blood 70 mm[Hg] 70 mm[Hg] [facility] Systolic blood 122 mm[Hg] 122 mm[Hg] [facility] Body temperature 36.877587 Kaylie 36.211880 [facility] Respiratory rate 17 /min 17 /min [facility] 98 % 98 % [facility] [place] saturation in Medical Arterial blood Center by Pulse oximetry Heart rate 70 /min 70 /min [facility] Diastolic blood 65 mm[Hg] 65 mm[Hg] [facility] pressure [facility] Center Systolic blood 127 mm[Hg] 127 mm[Hg] [facility] [place] Body temperature 36.119262 Kaylie 36.080104 [facility] Respiratory rate 16 /min 16 /min [facility] 95 % 95 % [facility] [place] saturation in Medical Arterial blood Center by Pulse oximetry Heart rate 94 /min 94 /min [facility] Diastolic blood 86 mm[Hg] 86 mm[Hg] [facility] pressure [facility] Center Systolic blood 140 mm[Hg] 140 mm[Hg] [facility] [place] Body temperature 36.051132 Kaylie 36.670699 [facility] Respiratory rate 6 /min 6 /min [facility] 96 % 96 % [facility] [place] saturation in Medical Arterial blood Center by Pulse oximetry Heart rate 101 /min 101 /min [facility] Diastolic blood 90 mm[Hg] 90 mm[Hg] [facility] pressure [facility] Center Systolic blood 156 mm[Hg] 156 mm[Hg] [facility] [place] Body temperature 36.745904 Kaylie 36.890593 [facility] Diastolic blood 78 mm[Hg] 78 mm[Hg] [facility] pressure [facility] Center Systolic blood 138 mm[Hg] 138 mm[Hg] [facility] [place] Respiratory rate 18 /min 18 /min [facility] 97 % 97 % [facility] [place] saturation in Medical Arterial blood Center by Pulse oximetry Heart rate 87 /min 87 /min [facility] Body temperature 36.780255 Kaylie 36.033344 [facility] Respiratory rate 18 /min 18 /min [facility] 96 % 96 % [facility] [place] saturation in Medical Arterial blood Center by Pulse oximetry Heart rate 96 /min 96 /min [facility] Diastolic blood 90 mm[Hg] 90 mm[Hg] [facility] pressure [facility] Center Systolic blood 150 mm[Hg] 150 mm[Hg] [facility] Body temperature 37.080023 Kaylie 37.567054 [facility] Respiratory rate 18 /min 18 /min [facility] 96 % 96 % [facility] [place] saturation in Medical Arterial blood Center by Pulse oximetry Heart rate 108 /min 108 /min [facility] Diastolic blood 63 mm[Hg] 63 mm[Hg] [facility] pressure [facility] Center Systolic blood 110 mm[Hg] 110 mm[Hg] [facility] Body weight 116.865583 kg 116.246282 kg [facility] Body height 177.187163 cm 177.490710 cm [facility] Body mass index 36.8 kg/m2 36.8 kg/m2 [facility] (BMI) [Ratio] Medical Center Body temperature 36.206729 Kaylie 36.314384 [facility] Respiratory rate 18 /min 18 /min [facility] 98 % 98 % [facility] [place] saturation in Medical Arterial blood Center by Pulse oximetry Heart rate 82 /min 82 /min [facility] Diastolic blood 90 mm[Hg] 90 mm[Hg] [facility] pressure [facility] Center Systolic blood 135 mm[Hg] 135 mm[Hg] [facility] Body temperature 36.281731 Kaylie 36.553042 [facility] Respiratory rate 18 /min 18 /min [facility] 98 % 98 % [facility] [place] saturation in Medical Arterial blood Center by Pulse oximetry Heart rate 80 /min 80 /min [facility] Diastolic blood 80 mm[Hg] 80 mm[Hg] [facility] pressure [facility] Center Systolic blood 124 mm[Hg] 124 mm[Hg] [facility] Body temperature 37.820712 Kaylie 37.388946 [facility] Respiratory rate 17 /min 17 /min [facility] 98 % 98 % [facility] [place] saturation in Medical Arterial blood Center by Pulse oximetry Heart rate 90 /min 90 /min [facility] Diastolic blood 75 mm[Hg] 75 mm[Hg] [facility] pressure [facility] Center Systolic blood 119 mm[Hg] 119 mm[Hg] [facility] Body temperature 37.483220 Kaylie 37.490578 [facility] Respiratory rate 18 /min 18 /min [facility] 95 % 95 % [facility] [place] saturation in Medical Arterial blood Center by Pulse oximetry Heart rate 96 /min 96 /min [facility] Diastolic blood 71 mm[Hg] 71 mm[Hg] [facility] pressure [facility] Center Systolic blood 106 mm[Hg] 106 mm[Hg] [facility] Body temperature 37.375934 Kaylie 37.251265 [facility] Respiratory rate 18 /min 18 /min [facility] 96 % 96 % [facility] [place] saturation in Medical Arterial blood Center by Pulse oximetry Heart rate 96 /min 96 /min [facility] Diastolic blood 65 mm[Hg] 65 mm[Hg] [facility] [place] Systolic blood 116 mm[Hg] 116 mm[Hg] [facility] Body temperature 36.156614 Kaylie 36.989327 [facility] Respiratory rate 17 /min 17 /min [facility] 96 % 96 % [facility] [place] saturation in Medical Arterial blood Center by Pulse oximetry Heart rate 90 /min 90 /min [facility] Diastolic blood 74 mm[Hg] 74 mm[Hg] [facility] [place] Systolic blood 129 mm[Hg] 129 mm[Hg] [facility] Body temperature 37.375818 Kaylie 37.552430 [facility] Respiratory rate 17 /min 17 /min [facility] 96 % 96 % [facility] [place] saturation in Medical Arterial blood Center by Pulse oximetry Heart rate 93 /min 93 /min [facility] Diastolic blood 59 mm[Hg] 59 mm[Hg] [facility] Systolic blood 101 mm[Hg] 101 mm[Hg] [facility] Body temperature 37.787443 Kaylie 37.244868 [facility] Respiratory rate 18 /min 18 /min [facility] 98 % 98 % [facility] [place] saturation in Medical Arterial blood Center by Pulse oximetry Heart rate 89 /min 89 /min [facility] Diastolic blood 86 mm[Hg] 86 mm[Hg] [facility] Systolic blood 132 mm[Hg] 132 mm[Hg] [facility] Body temperature 37.439704 Kaylie 37.663357 [facility] Respiratory rate 18 /min 18 /min [facility] 99 % 99 % [facility] [place] saturation in Medical Arterial blood Center by Pulse oximetry Heart rate 71 /min 71 /min [facility] Diastolic blood 75 mm[Hg] 75 mm[Hg] [facility] Systolic blood 131 mm[Hg] 131 mm[Hg] [facility] Body temperature 37.396388 Kaylie 37.264751 [facility] Respiratory rate 18 /min 18 /min [facility] 95 % 95 % [facility] [place] saturation in Medical Arterial blood Center by Pulse oximetry Heart rate 104 /min 104 /min [facility] Diastolic blood 90 mm[Hg] 90 mm[Hg] [facility] pressure [facility] Center Systolic blood 154 mm[Hg] 154 mm[Hg] [facility] Oxygen 96 % 96 % [facility] [place] saturation in Medical Arterial blood Center by Pulse oximetry Heart rate 100 /min 100 /min [facility] Diastolic blood 78 mm[Hg] 78 mm[Hg] [facility] Systolic blood 148 mm[Hg] 148 mm[Hg] [facility] Body temperature 37.848194 Kaylie 37.246692 [facility] Respiratory rate 19 /min 19 /min [facility] Body temperature 36.894165 Kaylie 36.319787 [facility] Respiratory rate 18 /min 18 /min [facility] 97 % 97 % [facility] [place] saturation in [facility] by Pulse oximetry Heart rate 100 /min 100 /min [facility] Diastolic blood 84 mm[Hg] 84 mm[Hg] [facility] Systolic blood 145 mm[Hg] 145 mm[Hg] [facility] Body weight 104.711556 kg 104.711155 kg [facility] Body height 177.158168 cm 177.409893 cm [facility] Body mass index 33.0 kg/m2 33.0 kg/m2 [facility] (BMI) [Ratio] Medical [place] Body temperature 36.781453 Kaylie 36.824693 [facility]lie [facility] Respiratory rate 18 /min 18 /min [facility] 95 % 95 % [place] saturation in [facility] Center by Pulse oximetry Heart rate 99 /min 99 /min [facility] Diastolic blood 60 mm[Hg] 60 mm[Hg] [facility] pressure Medical Center Systolic blood 112 mm[Hg] 112 mm[Hg] [facility] [place] Body temperature 36.600070 Kaylie 36.447388 [facility] Respiratory rate 18 /min 18 /min [facility] 95 % 95 % [place] saturation in [facility] by Pulse oximetry Heart rate 89 /min 89 /min [facility] Diastolic blood 62 mm[Hg] 62 mm[Hg] [facility] Systolic blood 102 mm[Hg] 102 mm[Hg] [facility] [place] Body temperature 37.636644 Kaylie 37.093087 [facility] Respiratory rate 17 /min 17 /min [facility] 95 % 95 % [place] saturation in [facility] by Pulse oximetry Heart rate 92 /min 92 /min [facility] Diastolic blood 66 mm[Hg] 66 mm[Hg] [facility] [place] Systolic blood 102 mm[Hg] 102 mm[Hg] [facility] Body temperature 36.060888 Kaylie 36.207406 [facility] Respiratory rate 17 /min 17 /min [facility] 93 % 93 % [place] saturation in [facility] Center by Pulse oximetry Heart rate 69 /min 69 /min [facility] Diastolic blood 69 mm[Hg] 69 mm[Hg] [facility] Systolic blood 125 mm[Hg] 125 mm[Hg] [facility] [place] Body temperature 36.764458 Kaylie 36.734561 [facility] Respiratory rate 18 /min 18 /min [facility] 95 % 95 % [place] saturation in [facility] by Pulse oximetry Heart rate 67 /min 67 /min [facility] Diastolic blood 68 mm[Hg] 68 mm[Hg] [facility] Systolic blood 125 mm[Hg] 125 mm[Hg] [facility] [place] Body temperature 36.309196 Kaylie 36.525515 [facility] Respiratory rate 17 /min 17 /min [facility] 96 % 96 % [place] saturation in [facility] by Pulse oximetry Heart rate 89 /min 89 /min [facility] Diastolic blood 88 mm[Hg] 88 mm[Hg] [facility] pressure [facility] Center Systolic blood 143 mm[Hg] 143 mm[Hg] [facility] 98 % 98 % [place] saturation in [facility] Center by Pulse oximetry Heart rate 75 /min 75 /min [facility] Diastolic blood 68 mm[Hg] 68 mm[Hg] [facility] pressure [facility] Center Systolic blood 129 mm[Hg] 129 mm[Hg] [facility] Body temperature 37.280279 Kaylie 37.710577 [facility] Respiratory rate 17 /min 17 /min [facility] Respiratory rate 16 /min 16 /min [facility] 93 % 93 % [place] saturation in [facility] by Pulse oximetry Heart rate 92 /min 92 /min [facility] Diastolic blood 72 mm[Hg] 72 mm[Hg] [facility] pressure [facility] Center Systolic blood 143 mm[Hg] 143 mm[Hg] [facility] [place] Body temperature 37.153541 Kaylie 37.909926 [facility] Respiratory rate 18 /min 18 /min [facility] 98 % 98 % [place] saturation in [facility] by Pulse oximetry Heart rate 86 /min 86 /min [facility] Diastolic blood 57 mm[Hg] 57 mm[Hg] [facility] Systolic blood 119 mm[Hg] 119 mm[Hg] [facility] [place] Body temperature 37.722158 Kaylie 37.865943 [facility] Respiratory rate 16 /min 16 /min [facility] 92 % 92 % [place] saturation in [facility] by Pulse oximetry Heart rate 88 /min 88 /min [facility] Diastolic blood 56 mm[Hg] 56 mm[Hg] [facility] pressure [facility] Center Systolic blood 90 mm[Hg] 90 mm[Hg] [facility] Body weight 90.035666 kg 90.978345 kg [facility] [place] Body temperature 37.031707 Kaylie 37.917567 [facility] Respiratory rate 19 /min 19 /min [facility] 93 % 93 % [place] saturation in [facility] by Pulse oximetry Heart rate 84 /min 84 /min [facility] Body height 177.191709 cm 177.565304 cm [facility] Diastolic blood 48 mm[Hg] 48 mm[Hg] [facility] pressure [facility] Center Systolic blood 100 mm[Hg] 100 mm[Hg] [facility] Body mass index 28.4 kg/m2 28.4 kg/m2 [facility] (BMI) [Ratio] [facility] Center Body temperature 37.349973 Kaylie 37.938466 [facility] Respiratory rate 18 /min 18 /min [facility] 98 % 98 % [place] saturation in [facility] by Pulse oximetry Heart rate 89 /min 89 /min [facility] Diastolic blood 78 mm[Hg] 78 mm[Hg] [facility] pressure [facility] Center Systolic blood 145 mm[Hg] 145 mm[Hg] [facility] Body temperature 37.817736 Kaylie 37.641696 [facility] Respiratory rate 20 /min 20 /min [facility] 95 % 95 % [place] saturation in [facility] by Pulse oximetry Diastolic blood 90 mm[Hg] 90 mm[Hg] [facility] Systolic blood 154 mm[Hg] 154 mm[Hg] [facility] Body temperature 37.759362 Kaylie 37.058367 [facility] Respiratory rate 20 /min 20 /min [facility] 95 % 95 % [place] saturation in [facility] by Pulse oximetry Heart rate 91 /min 91 /min [facility] Diastolic blood 90 mm[Hg] 90 mm[Hg] [facility] Systolic blood 142 mm[Hg] 142 mm[Hg] [facility] Body temperature 36.779906 Kaylie 36.610064 [facility] Respiratory rate 20 /min 20 /min [facility] 98 % 98 % [place] saturation in [facility] by Pulse oximetry Heart rate 95 /min 95 /min [facility] Diastolic blood 61 mm[Hg] 61 mm[Hg] [facility] Systolic blood 102 mm[Hg] 102 mm[Hg] [facility] Body temperature 36.612134 Kaylie 36.779638 [facility] Respiratory rate 19 /min 19 /min [facility] 96 % 96 % [place] saturation in [facility] by Pulse oximetry Heart rate 74 /min 74 /min [facility] Diastolic blood 74 mm[Hg] 74 mm[Hg] [facility] Systolic blood 132 mm[Hg] 132 mm[Hg] [facility] Body weight 79.758111 kg 79.383258 kg [facility] Heart rate 71 /min 71 /min [facility] Body height 182.342255 cm 182.005378 cm [facility] Body mass index 23.7 kg/m2 23.7 kg/m2 [facility] (BMI) [Ratio] Medical Center Body temperature 37.664809 Kaylie 37.252627 [facility] Respiratory rate 18 /min 18 /min [facility] 96 % 96 % [place] saturation in [facility] by Pulse oximetry Heart rate 87 /min 87 /min [facility] Diastolic blood 69 mm[Hg] 69 mm[Hg] [facility] Systolic blood 129 mm[Hg] 129 mm[Hg] [facility] Body temperature 36.902993 Kaylie 36.465954 [facility] Respiratory rate 18 /min 18 /min [facility] 95 % 95 % [place] saturation in [facility] by Pulse oximetry Heart rate 87 /min 87 /min [facility] Diastolic blood 75 mm[Hg] 75 mm[Hg] [facility] Systolic blood 122 mm[Hg] 122 mm[Hg] [facility] Body temperature 37.197202 Kaylie 37.945646 [facility] Respiratory rate 19 /min 19 /min [facility] 95 % 95 % [place] saturation in [facility] by Pulse oximetry Heart rate 90 /min 90 /min [facility] Diastolic blood 78 mm[Hg] 78 mm[Hg] [facility] Systolic blood 124 mm[Hg] 124 mm[Hg] [facility] Body temperature 37.912233 Kaylie 37.587958 [facility] Respiratory rate 19 /min 19 /min [facility] 95 % 95 % [place] saturation in [facility] by Pulse oximetry Heart rate 85 /min 85 /min [facility] Diastolic blood 70 mm[Hg] 70 mm[Hg] [facility] Systolic blood 129 mm[Hg] 129 mm[Hg] [facility] Body weight 104.857727 kg 104.599275 kg [facility] Body temperature 37.891017 Kaylie 37.151923 [facility] Respiratory rate 86 /min 86 /min [facility] 95 % 95 % [place] saturation in [facility] by Pulse oximetry Heart rate 86 /min 86 /min [facility] Body height 177.096859 cm 177.178613 cm [facility] Diastolic blood 74 mm[Hg] 74 mm[Hg] [facility] Systolic blood 137 mm[Hg] 137 mm[Hg] [facility] Body mass index 33.0 kg/m2 33.0 kg/m2 [facility] (BMI) [Ratio] Medical Center Body temperature 36.036287 Kaylie 36.907637 [facility] Respiratory rate 18 /min 18 /min [facility] 92 % 92 % [place] saturation in [facility] by Pulse oximetry Heart rate 100 /min 100 /min [facility] Diastolic blood 65 mm[Hg] 65 mm[Hg] [facility] Systolic blood 135 mm[Hg] 135 mm[Hg] [facility] Body temperature 37.657179 Kaylie 37.096972 [facility] Respiratory rate 18 /min 18 /min [facility] 95 % 95 % [place] saturation in [facility] by Pulse oximetry Heart rate 97 /min 97 /min [facility] Diastolic blood 89 mm[Hg] 89 mm[Hg] [facility] Systolic blood 157 mm[Hg] 157 mm[Hg] [facility] Body temperature 37.564491 Kaylie 37.975749 [facility] Respiratory rate 18 /min 18 /min [facility] 95 % 95 % [place] saturation in [facility] by Pulse oximetry Heart rate 91 /min 91 /min [facility] Diastolic blood 60 mm[Hg] 60 mm[Hg] [facility] [place] Systolic blood 118 mm[Hg] 118 mm[Hg] [facility] Body weight 104.472448 kg 104.411201 kg [facility] Body temperature 36.667617 Kaylie 36.767951 [facility] Respiratory rate 17 /min 17 /min [facility] 95 % 95 % [place] saturation in [facility] by Pulse oximetry Heart rate 89 /min 89 /min [facility] Body height 177.396631 cm 177.462509 cm [facility] Diastolic blood 88 mm[Hg] 88 mm[Hg] [facility] [place] Systolic blood 127 mm[Hg] 127 mm[Hg] [facility] Body mass index 33.0 kg/m2 33.0 kg/m2 [facility] (BMI) [Ratio] [facility] Center Body temperature 36.403089 Kaylie 36.487747 [facility] Respiratory rate 17 /min 17 /min [facility] 98 % 98 % [place] saturation in [facility] by Pulse oximetry Heart rate 88 /min 88 /min [facility] Diastolic blood 82 mm[Hg] 82 mm[Hg] [facility] pressure [facility] Center Systolic blood 138 mm[Hg] 138 mm[Hg] [facility] Body temperature 36.122989 Kaylie 36.238123 [facility] Respiratory rate 18 /min 18 /min [facility] 98 % 98 % [place] saturation in [facility] by Pulse oximetry Heart rate 87 /min 87 /min [facility] Diastolic blood 84 mm[Hg] 84 mm[Hg] [facility] Systolic blood 145 mm[Hg] 145 mm[Hg] [facility] Body temperature 36.714710 Kaylie 36.005976 [facility] Respiratory rate 18 /min 18 /min [facility] 97 % 97 % [place] saturation in [facility] Ar[facility] by Pulse oximetry Heart rate 87 /min 87 /min [facility] Diastolic blood 97 mm[Hg] 97 mm[Hg] [facility] pressure [facility] Center Systolic blood 154 mm[Hg] 154 mm[Hg] [facility] Body temperature 36.959536 Kaylie 36.731958 [facility] Respiratory rate 18 /min 18 /min [facility] 98 % 98 % [place] saturation in [facility] by Pulse oximetry Heart rate 88 /min 88 /min [facility] Diastolic blood 78 mm[Hg] 78 mm[Hg] [facility] pressure [facility] Center Systolic blood 145 mm[Hg] 145 mm[Hg] [facility] Body temperature 36.122188 Kaylie 36.142440 [facility] Respiratory rate 18 /min 18 /min [facility] 97 % 97 % [place] saturation in [facility] Ar[facility] by Pulse oximetry Heart rate 77 /min 77 /min [facility] Diastolic blood 71 mm[Hg] 71 mm[Hg] [facility] pressure [facility] Center Systolic blood 126 mm[Hg] 126 mm[Hg] [facility] Body temperature 36.641776 Kaylie 36.338405 [facility] Respiratory rate 17 /min 17 /min [facility] 94 % 94 % [place] saturation in [facility] Ar[facility] by Pulse oximetry Heart rate 54 /min 54 /min [facility] Diastolic blood 64 mm[Hg] 64 mm[Hg] [facility] pressure [facility] Center Systolic blood 113 mm[Hg] 113 mm[Hg] [facility] Respiratory rate 16 /min 16 /min [facility] 97 % 97 % [place] saturation in [facility] Ar[facility] by Pulse oximetry Heart rate 52 /min 52 /min [facility] Diastolic blood 80 mm[Hg] 80 mm[Hg] [facility] pressure [facility] Center Systolic blood 130 mm[Hg] 130 mm[Hg] [facility] Body temperature 36.688392 Kaylie 36.954987 [facility] Respiratory rate 18 /min 18 /min [facility] 96 % 96 % [place] saturation in [facility] Ar[facility] by Pulse oximetry Heart rate 96 /min 96 /min [facility] Diastolic blood 75 mm[Hg] 75 mm[Hg] [facility] pressure [facility] Center Systolic blood 129 mm[Hg] 129 mm[Hg] [facility] Body temperature 37.145672 Kaylie 37.060514 [facility] Respiratory rate 19 /min 19 /min [facility] 96 % 96 % [place] saturation in Medical Ar[facility] by Pulse oximetry Heart rate 98 /min 98 /min [facility] Diastolic blood 77 mm[Hg] 77 mm[Hg] [facility] pressure [facility] Center Systolic blood 132 mm[Hg] 132 mm[Hg] [facility] [place] Body temperature 36.873961 Kaylie 36.907022 [facility] Respiratory rate 16 /min 16 /min [facility] 95 % 95 % [place] saturation in Medical Ar[facility] by Pulse oximetry Heart rate 95 /min 95 /min [facility] Diastolic blood 70 mm[Hg] 70 mm[Hg] [facility] Systolic blood 118 mm[Hg] 118 mm[Hg] [facility] Body temperature 36.905962 Kaylie 36.577401 [facility] Respiratory rate 18 /min 18 /min [facility] 96 % 96 % [place] saturation in [facility] Ar[facility] by Pulse oximetry Heart rate 100 /min 100 /min [facility] Diastolic blood 72 mm[Hg] 72 mm[Hg] [facility] Systolic blood 126 mm[Hg] 126 mm[Hg] [facility] [place] Body temperature 36.628388 Kaylie 36.562272 [facility] Respiratory rate 18 /min 18 /min [facility] 97 % 97 % [place] saturation in Medical [facility] by Pulse oximetry Heart rate 88 /min 88 /min [facility] Diastolic blood 75 mm[Hg] 75 mm[Hg] [facility] Systolic blood 145 mm[Hg] 145 mm[Hg] [facility] Body temperature 36.238399 Kaylie 36.263726 [facility] Respiratory rate 18 /min 18 /min [facility] 97 % 97 % [place] saturation in Medical Ar[facility] by Pulse oximetry Heart rate 88 /min 88 /min [facility] Diastolic blood 73 mm[Hg] 73 mm[Hg] [facility] pressure [facility] Center Systolic blood 128 mm[Hg] 128 mm[Hg] [facility] Body temperature 36.414866 Kaylie 36.259288 [facility] Respiratory rate 18 /min 18 /min [facility] 96 % 96 % [place] saturation in Medical Ar[facility] by Pulse oximetry Heart rate 95 /min 95 /min [facility] Diastolic blood 89 mm[Hg] 89 mm[Hg] [facility] pressure [facility] Center Systolic blood 131 mm[Hg] 131 mm[Hg] [facility] [place] Body temperature 37.543265 Kaylie 37.670300 [facility] Respiratory rate 18 /min 18 /min [facility] 98 % 98 % [place] saturation in Medical Ar[facility] by Pulse oximetry Heart rate 89 /min 89 /min [facility] Diastolic blood 78 mm[Hg] 78 mm[Hg] [facility] Systolic blood 145 mm[Hg] 145 mm[Hg] [facility] Body temperature 36.171883 Kaylie 36.505184 [facility] Respiratory rate 18 /min 18 /min [facility] 97 % 97 % [place] saturation in Medical Ar[facility] Center by Pulse oximetry Heart rate 92 /min 92 /min [facility] Diastolic blood 95 mm[Hg] 95 mm[Hg] [facility] Systolic blood 150 mm[Hg] 150 mm[Hg] [facility] [place] Body temperature 36.974725 Kaylie 36.937593 [facility] Respiratory rate 18 /min 18 /min [facility] 95 % 95 % [place] saturation in Medical Ar[facility] by Pulse oximetry Heart rate 88 /min 88 /min [facility] Diastolic blood 83 mm[Hg] 83 mm[Hg] [facility] pressure [facility] Center Systolic blood 139 mm[Hg] 139 mm[Hg] [facility] Body temperature 36.891424 Kaylie 36.825688 [facility] Respiratory rate 19 /min 19 /min [facility] 97 % 97 % [place] saturation in Medical Ar[facility] by Pulse oximetry Heart rate 87 /min 87 /min [facility] Diastolic blood 95 mm[Hg] 95 mm[Hg] [facility] pressure [facility] Center Systolic blood 137 mm[Hg] 137 mm[Hg] [facility] Body temperature 36.379841 Kaylie 36.082079 [facility] Respiratory rate 18 /min 18 /min [facility] 97 % 97 % [place] saturation in Medical Ar[facility] blood Center by Pulse oximetry Heart rate 82 /min 82 /min [facility] Diastolic blood 84 mm[Hg] 84 mm[Hg] [facility] Systolic blood 122 mm[Hg] 122 mm[Hg] [facility] [place] Body temperature 36.260615 Kaylie 36.766373 [facility] Respiratory rate 18 /min 18 /min [facility] 98 % 98 % [place] saturation in Medical Ar[facility] by Pulse oximetry Heart rate 89 /min 89 /min [facility] Diastolic blood 74 mm[Hg] 74 mm[Hg] [facility] pressure [facility] Center Systolic blood 124 mm[Hg] 124 mm[Hg] [facility] Body temperature 36.480986 Kaylie 36.224536 [facility] Respiratory rate 19 /min 19 /min [facility] 98 % 98 % [place] saturation in Medical Ar[facility] by Pulse oximetry Heart rate 85 /min 85 /min [facility] Diastolic blood 79 mm[Hg] 79 mm[Hg] [facility] Systolic blood 136 mm[Hg] 136 mm[Hg] [facility] Body temperature 37.239883 Kaylie 37.511212 [facility] Respiratory rate 17 /min 17 /min [facility] 97 % 97 % [place] saturation in Medical Ar[facility] blood [facility] by Pulse oximetry Heart rate 77 /min 77 /min [facility] Diastolic blood 74 mm[Hg] 74 mm[Hg] [facility] pressure [facility] Center Systolic blood 109 mm[Hg] 109 mm[Hg] [facility] Body temperature 36.506726 Kaylie 36.153981 [facility] Respiratory rate 18 /min 18 /min [facility] 96 % 96 % [place] saturation in Medical Ar[facility] blood Center by Pulse oximetry Heart rate 82 /min 82 /min [facility] Diastolic blood 79 mm[Hg] 79 mm[Hg] [facility] Systolic blood 112 mm[Hg] 112 mm[Hg] [facility] Body weight 80.181188 kg 80.128832 kg [facility] Body height 172.068915 cm 172.507098 cm [facility] Body mass index 26.8 kg/m2 26.8 kg/m2 [facility] (BMI) [Ratio] Medical Center Body weight 80.670101 kg 80.754646 kg [facility] Body height 172.773537 cm 172.168151 cm [facility] Body mass index 26.8 kg/m2 26.8 kg/m2 [facility] (BMI) [Ratio] [facility] Body temperature 36.028366 Kaylie 36.642728 [facility] Respiratory rate 19 /min 19 /min [facility] 100 % 100 % [place] saturation in Medical Ar[facility] by Pulse oximetry Heart rate 85 /min 85 /min [facility] Diastolic blood 77 mm[Hg] 77 mm[Hg] [facility] Systolic blood 117 mm[Hg] 117 mm[Hg] [facility] Body temperature 37.505164 Kaylie 37.023965 [facility] Respiratory rate 18 /min 18 /min [facility] 95 % 95 % [place] saturation in Medical Ar[facility] by Pulse oximetry Heart rate 76 /min 76 /min [facility] Diastolic blood 64 mm[Hg] 64 mm[Hg] [facility] Systolic blood 125 mm[Hg] 125 mm[Hg] [facility] Body temperature 37.204206 Kaylie 37.988189 [facility] Respiratory rate 19 /min 19 /min [facility] 95 % 95 % [place] saturation in Medical Ar[facility] Center by Pulse oximetry Heart rate 77 /min 77 /min [facility] Diastolic blood 63 mm[Hg] 63 mm[Hg] [facility] Systolic blood 113 mm[Hg] 113 mm[Hg] [facility] Body weight 104.253231 kg 104.815381 [facility] [facility] [place] Body temperature 36.327695 Kaylie 36.637414 [facility] Respiratory rate 17 /min 17 /min [facility] 92 % 92 % [facility] saturation in Medical Arterial blood Center by Pulse oximetry Heart rate 84 /min 84 /min [facility] Body height 177.990050 cm 177.816580 cm [facility] Diastolic blood 83 mm[Hg] 83 mm[Hg] [facility] pressure Medical Center Systolic blood 136 mm[Hg] 136 mm[Hg] [facility] Body mass index 33.0 kg/m2 33.0 kg/m2 [facility] (BMI) [Ratio] Medical Center Body temperature 36.164443 Kaylie 36.164998 [facility] Respiratory rate 19 /min 19 /min [facility] 96 % 96 % [facility] saturation in Medical Arterial blood Center by Pulse oximetry Heart rate 89 /min 89 /min [facility] Diastolic blood 70 mm[Hg] 70 mm[Hg] [facility] Systolic blood 137 mm[Hg] 137 mm[Hg] [facility] Body temperature 36.501421 Kaylie 36.062179 [facility] Respiratory rate 18 /min 18 /min [facility] 99 % 99 % [facility] saturation in Medical Arterial blood Center by Pulse oximetry Heart rate 78 /min 78 /min [facility] Diastolic blood 78 mm[Hg] 78 mm[Hg] [facility] Systolic blood 144 mm[Hg] 144 mm[Hg] [facility] Oxygen 99 % 99 % [facility] saturation in Medical Arterial blood Center by Pulse oximetry Respiratory rate 18 /min 18 /min [facility] 90 % 90 % [facility] saturation in Medical Arterial blood Center by Pulse oximetry Heart rate 72 /min 72 /min [facility] Diastolic blood 66 mm[Hg] 66 mm[Hg] [facility] Systolic blood 144 mm[Hg] 144 mm[Hg] [facility] Body temperature 36.676662 Kaylie 36.204829 [facility] Respiratory rate 18 /min 18 /min [facility] Heart rate 80 /min 80 /min [facility] Diastolic blood 82 mm[Hg] 82 mm[Hg] [facility] Systolic blood 141 mm[Hg] 141 mm[Hg] [facility] Body temperature 36.800723 Kaylie 36.968901 [facility] Oxygen 92 % 92 % [facility] saturation in Medical Arterial blood Center by Pulse oximetry Heart rate 79 /min 79 /min [facility] Diastolic blood 84 mm[Hg] 84 mm[Hg] [facility] Systolic blood 139 mm[Hg] 139 mm[Hg] [facility] Systolic blood 159 mm[Hg] 159 mm[Hg] [facility] Body mass index 33.0 kg/m2 33.0 kg/m2 [facility] (BMI) [Ratio] Medical Center Body weight 104.641853 kg 104.313709 kg [facility] [place] Body temperature 37.251870 Kaylie 37.233807 [facility] Respiratory rate 18 /min 18 /min [facility] 97 % 97 % [facility] saturation in Medical Arterial blood Center by Pulse oximetry Heart rate 69 /min 69 /min [facility] Body height 177.558797 cm 177.475226 cm [facility] Diastolic blood 100 mm[Hg] 100 mm[Hg] [facility] Body temperature 36.135518 Kaylie 36.187493 [facility] Respiratory rate 18 /min 18 /min [facility] 97 % 97 % [facility] saturation in Medical Arterial blood Center by Pulse oximetry Heart rate 88 /min 88 /min [facility] Diastolic blood 97 mm[Hg] 97 mm[Hg] [facility] Systolic blood 152 mm[Hg] 152 mm[Hg] [facility] Body temperature 37.778556 Kaylie 37.952250 [facility] Respiratory rate 18 /min 18 /min [facility] 97 % 97 % [facility] saturation in Medical Arterial blood Center by Pulse oximetry Heart rate 87 /min 87 /min [facility] Diastolic blood 87 mm[Hg] 87 mm[Hg] [facility] pressure Medical Center Systolic blood 145 mm[Hg] 145 mm[Hg] [facility] Body temperature 36.746597 Kaylie 36.056113 [facility] Respiratory rate 17 /min 17 /min [facility] 94 % 94 % [facility] saturation in Medical Arterial blood Center by Pulse oximetry Heart rate 98 /min 98 /min [facility] Diastolic blood 68 mm[Hg] 68 mm[Hg] [facility] pressure Medical Center Systolic blood 144 mm[Hg] 144 mm[Hg] [facility] Body temperature 36.576431 Kaylie 36.812493 [facility] Respiratory rate 18 /min 18 /min [facility] 97 % 97 % [facility] saturation in Medical Arterial blood Center by Pulse oximetry Heart rate 88 /min 88 /min [facility] Diastolic blood 72 mm[Hg] 72 mm[Hg] [facility] pressure Medical Center Systolic blood 144 mm[Hg] 144 mm[Hg] [facility] Body temperature 36.591530 Kaylie 36.300782 [facility] Respiratory rate 19 /min 19 /min [facility] Heart rate 90 /min 90 /min [facility] Diastolic blood 74 mm[Hg] 74 mm[Hg] [facility] pressure Medical Center Systolic blood 121 mm[Hg] 121 mm[Hg] [facility] Body temperature 37.476325 Kaylie 37.387174 [facility] Respiratory rate 17 /min 17 /min [facility] 89 % 89 % [facility] saturation in Medical Arterial blood Center by Pulse oximetry Heart rate 110 /min 110 /min [facility] Diastolic blood 76 mm[Hg] 76 mm[Hg] [facility] pressure Medical Center Systolic blood 115 mm[Hg] 115 mm[Hg] [facility] Body temperature 36.975313 Kaylie 36.487703 [facility] Respiratory rate 18 /min 18 /min [facility] 100 % 100 % [facility] saturation in Medical Arterial blood Center by Pulse oximetry Heart rate 80 /min 80 /min [facility] Diastolic blood 78 mm[Hg] 78 mm[Hg] [facility] pressure Medical Center Systolic blood 128 mm[Hg] 128 mm[Hg] [facility] Body temperature 36.207245 Kaylie 36.999398 [facility] Respiratory rate 19 /min 19 /min [facility] 96 % 96 % [facility] saturation in Medical Arterial blood Center by Pulse oximetry Heart rate 69 /min 69 /min [facility] Diastolic blood 78 mm[Hg] 78 mm[Hg] [facility] pressure Medical Center Systolic blood 128 mm[Hg] 128 mm[Hg] [facility] Body weight 95.323588 kg 95.151518 kg [facility] Body temperature 36.693371 Kaylie 36.779682 [facility] Respiratory rate 18 /min 18 /min [facility] 96 % 96 % [facility] saturation in Medical Arterial blood Center by Pulse oximetry Heart rate 95 /min 95 /min [facility] Body height 182.984089 cm 182.941428 cm [facility] Diastolic blood 80 mm[Hg] 80 mm[Hg] [facility] pressure Medical Center Systolic blood 130 mm[Hg] 130 mm[Hg] [facility] Body mass index 28.4 kg/m2 28.4 kg/m2 [facility] (BMI) [Ratio] Medical Center Body temperature 36.084841 Kaylie 36.160948 [facility] Respiratory rate 16 /min 16 /min [facility] 97 % 97 % [facility] saturation in Medical Arterial blood Center by Pulse oximetry Heart rate 74 /min 74 /min [facility] Diastolic blood 77 mm[Hg] 77 mm[Hg] [facility] pressure Medical Center Systolic blood 131 mm[Hg] 131 mm[Hg] [facility] Body temperature 36.046161 Kaylie 36.467229 [facility] Respiratory rate 18 /min 18 /min [facility] 99 % 99 % [facility] saturation in Medical Arterial blood Center by Pulse oximetry Heart rate 82 /min 82 /min [facility] Diastolic blood 82 mm[Hg] 82 mm[Hg] [facility] pressure Medical Center Systolic blood 135 mm[Hg] 135 mm[Hg] [facility] Body weight 120.022934 kg 120.416901 kg [facility] Body temperature 36.896682 Kaylie 36.176583 [facility] Respiratory rate 16 /min 16 /min [facility] 96 % 96 % [facility] saturation in Medical Arterial blood Center by Pulse oximetry Heart rate 67 /min 67 /min [facility] Diastolic blood 67 mm[Hg] 67 mm[Hg] [facility] pressure Medical Center Systolic blood 115 mm[Hg] 115 mm[Hg] [facility]xygen 90 % 90 % [facility] saturation in Medical Arterial blood Center by Pulse oximetry Heart rate 109 /min 109 /min [facility] Diastolic blood 62 mm[Hg] 62 mm[Hg] [facility] Systolic blood 103 mm[Hg] 103 mm[Hg] [facility] Body temperature 37.795963 Kaylie 37.039772 [facility] Respiratory rate 18 /min 18 /min [facility] Body weight 113.703766 kg 113.412893 kg [facility] Body temperature 36.326452 Kaylie 36.268641 [facility] Respiratory rate 18 /min 18 /min [facility] 96 % 96 % [place] saturation in Medical Arterial blood Center by Pulse oximetry Heart rate 82 /min 82 /min [facility] Body height 177.154206 cm 177.993788 cm [facility] Diastolic blood 82 mm[Hg] 82 mm[Hg] [facility] Systolic blood 136 mm[Hg] 136 mm[Hg] [facility] Body mass index 35.8 kg/m2 35.8 kg/m2 [facility] (BMI) [Ratio] Medical Center Body temperature 37.714868 Kaylie 37.969814 [facility] Respiratory rate 18 /min 18 /min [facility] 96 % 96 % [place] saturation in Medical Arterial blood Center by Pulse oximetry Heart rate 88 /min 88 /min [facility] Diastolic blood 86 mm[Hg] 86 mm[Hg] [facility] pressure Medical Center Systolic blood 118 mm[Hg] 118 mm[Hg] [facility] Body temperature 36.392830 Kaylie 36.904561 [facility] Respiratory rate 18 /min 18 /min [facility] 98 % 98 % [facility] saturation in Medical Arterial blood Center by Pulse oximetry Heart rate 79 /min 79 /min [facility] Diastolic blood 78 mm[Hg] 78 mm[Hg] [facility] pressure Medical Center Systolic blood 121 mm[Hg] 121 mm[Hg] [facility] Body temperature 36.685455 Kaylie 36.520567 [facility] Respiratory rate 19 /min 19 /min [facility] 96 % 96 % [facility] saturation in Medical Arterial blood Center by Pulse oximetry Heart rate 81 /min 81 /min [facility] Diastolic blood 74 mm[Hg] 74 mm[Hg] [facility] pressure Medical Center Systolic blood 118 mm[Hg] 118 mm[Hg] [facility] [place] Body temperature 37.954627 Kaylie 37.241716 [facility] Respiratory rate 18 /min 18 /min [facility] 96 % 96 % [facility] saturation in Medical Arterial blood Center by Pulse oximetry Heart rate 96 /min 96 /min [facility] Diastolic blood 59 mm[Hg] 59 mm[Hg] [facility] Systolic blood 94 mm[Hg] 94 mm[Hg] [facility] Body temperature 37.407627 Kaylie 37.536231 [facility] Respiratory rate 19 /min 19 /min [facility] 95 % 95 % [facility] saturation in Medical Arterial blood Center by Pulse oximetry Heart rate 88 /min 88 /min [facility] Diastolic blood 53 mm[Hg] 53 mm[Hg] [facility] Systolic blood 93 mm[Hg] 93 mm[Hg] [facility] Body weight 74.365195 kg 74.970061 kg [facility] Body temperature 36.132151 Kaylie 36.319800 [facility] Respiratory rate 18 /min 18 /min [facility] 100 % 100 % [facility] saturation in Medical Arterial blood Center by Pulse oximetry Heart rate 94 /min 94 /min [facility] Body height 182.578711 cm 182.086024 cm [facility] Diastolic blood 59 mm[Hg] 59 mm[Hg] [facility] pressure Medical Center Systolic blood 100 mm[Hg] 100 mm[Hg] [facility] Body mass index 22.3 kg/m2 22.3 kg/m2 [facility] (BMI) [Ratio] Medical Center Body temperature 37.515046 Kaylie 37.200955 [facility] Respiratory rate 18 /min 18 /min [facility] 95 % 95 % [facility] saturation in Medical Arterial blood Center by Pulse oximetry Heart rate 88 /min 88 /min [facility] Diastolic blood 78 mm[Hg] 78 mm[Hg] [facility] Systolic blood 132 mm[Hg] 132 mm[Hg] [facility] Body temperature 37.824003 Kaylie 37.264132 [facility] Respiratory rate 17 /min 17 /min [facility] 94 % 94 % [facility] saturation in Medical Arterial blood Center by Pulse oximetry Heart rate 80 /min 80 /min [facility] Diastolic blood 84 mm[Hg] 84 mm[Hg] [facility] Systolic blood 134 mm[Hg] 134 mm[Hg] [facility] Body temperature 37.407964 Kaylie 37.809517 [facility] Respiratory rate 19 /min 19 /min [facility] 95 % 95 % [facility] saturation in Medical Arterial blood Center by Pulse oximetry Heart rate 87 /min 87 /min [facility] Diastolic blood 75 mm[Hg] 75 mm[Hg] [facility] Systolic blood 137 mm[Hg] 137 mm[Hg] [facility] Body temperature 36.150200 Kaylie 36.403622 [facility] Respiratory rate 18 /min 18 /min [facility] 93 % 93 % [facility] [place] saturation in Medical Arterial blood Center by Pulse oximetry Heart rate 81 /min 81 /min [facility] Diastolic blood 77 mm[Hg] 77 mm[Hg] [facility] pressure Medical Center Systolic blood 137 mm[Hg] 137 mm[Hg] [facility] Body temperature 37.826471 Kaylie 37.720174 [facility] Respiratory rate 19 /min 19 /min [facility] 96 % 96 % [facility] [place] saturation in Medical Arterial blood Center by Pulse oximetry Heart rate 96 /min 96 /min [facility] Diastolic blood 75 mm[Hg] 75 mm[Hg] [facility] Systolic blood 129 mm[Hg] 129 mm[Hg] [facility] Body temperature 37.337690 Kaylie 37.635313 [facility] Respiratory rate 18 /min 18 /min [facility] 97 % 97 % [facility] saturation in Medical Arterial blood Center by Pulse oximetry Heart rate 99 /min 99 /min [facility] Diastolic blood 72 mm[Hg] 72 mm[Hg] [facility] Systolic blood 131 mm[Hg] 131 mm[Hg] [facility] Body temperature 37.531820 Kaylie 37.398692 [facility] Respiratory rate 19 /min 19 /min [facility] 98 % 98 % [facility] [place] saturation in Medical Arterial blood Center by Pulse oximetry Heart rate 84 /min 84 /min [facility] Diastolic blood 85 mm[Hg] 85 mm[Hg] [facility] Systolic blood 131 mm[Hg] 131 mm[Hg] [facility] Body temperature 37.363441 Kaylie 37.773756 [facility] Respiratory rate 18 /min 18 /min [facility] 98 % 98 % [facility] [place] saturation in Medical Arterial blood Center by Pulse oximetry Heart rate 85 /min 85 /min [facility] Diastolic blood 88 mm[Hg] 88 mm[Hg] [facility] Systolic blood 126 mm[Hg] 126 mm[Hg] [facility] Body temperature 37.983984 Kaylie 37.401172 [facility] Respiratory rate 18 /min 18 /min [facility] 98 % 98 % [facility] [place] saturation in Medical Arterial blood Center by Pulse oximetry Heart rate 90 /min 90 /min [facility] Diastolic blood 85 mm[Hg] 85 mm[Hg] [facility] pressure Medical Center Systolic blood 139 mm[Hg] 139 mm[Hg] [facility] Body weight 85.642119 kg 85.490963 kg [facility] Body height 177.919697 cm 177.049938 cm [facility] Body mass index 26.8 kg/m2 26.8 kg/m2 [facility] (BMI) [Ratio] Medical Center Body temperature 36.262453 Kaylie 36.548184 [facility] Respiratory rate 16 /min 16 /min [facility] 96 % 96 % [place] saturation in Medical Arterial blood Center by Pulse oximetry Heart rate 71 /min 71 /min [facility] Diastolic blood 66 mm[Hg] 66 mm[Hg] [facility] Systolic blood 115 mm[Hg] 115 mm[Hg] [facility] Body temperature 36.942099 Kaylie 36.076579 [facility] Respiratory rate 16 /min 16 /min [facility] 96 % 96 % [facility] saturation in Medical Arterial blood Center by Pulse oximetry Heart rate 75 /min 75 /min [facility] Diastolic blood 74 mm[Hg] 74 mm[Hg] [facility] Systolic blood 121 mm[Hg] 121 mm[Hg] [facility] Body temperature 36.747666 Kaylie 36.505600 [facility] Respiratory rate 17 /min 17 /min [facility] 98 % 98 % [facility] [place] saturation in Medical Arterial blood Center by Pulse oximetry Heart rate 84 /min 84 /min [facility] Diastolic blood 70 mm[Hg] 70 mm[Hg] [facility] Systolic blood 118 mm[Hg] 118 mm[Hg] [facility] Body temperature 37.545326 Kaylie 37.448836 [facility] Respiratory rate 18 /min 18 /min [facility] 97 % 97 % [facility] [place] saturation in Medical Arterial blood Center by Pulse oximetry Heart rate 86 /min 86 /min [facility] Diastolic blood 87 mm[Hg] 87 mm[Hg] [facility] Systolic blood 136 mm[Hg] 136 mm[Hg] [facility] Body temperature 36.962726 Kaylie 36.829166 [facility] Respiratory rate 18 /min 18 /min [facility] Heart rate 89 /min 89 /min [facility] Diastolic blood 90 mm[Hg] 90 mm[Hg] [facility] pressure [facility] Center Systolic blood 134 mm[Hg] 134 mm[Hg] [facility] Body temperature 36.795871 Kaylie 36.273460 [facility] Respiratory rate 18 /min 18 /min [facility] Heart rate 94 /min 94 /min [facility] Diastolic blood 83 mm[Hg] 83 mm[Hg] [facility] Systolic blood 136 mm[Hg] 136 mm[Hg] [facility] Body temperature 37.203642 Kaylie 37.041863 [facility] Respiratory rate 20 /min 20 /min [facility] Heart rate 87 /min 87 /min [facility] Diastolic blood 73 mm[Hg] 73 mm[Hg] [facility] Systolic blood 132 mm[Hg] 132 mm[Hg] [facility] Body temperature 36.726267 Kaylie 36.959670 [facility] Respiratory rate 20 /min 20 /min [facility] Heart rate 82 /min 82 /min [facility] Diastolic blood 81 mm[Hg] 81 mm[Hg] [facility] Systolic blood 123 mm[Hg] 123 mm[Hg] [facility] [place] [facility] 94 % 94 % [facility] saturation in Medical Arterial blood Center by Pulse oximetry ID Date Data Source [id number] 02/27/2020 10:28:08 PM EDT [facility] Name Value Range Interpretation Code Description Data Source(s) Body weight Measured 233 lb 233 lb [facility] Patient Treatment Plan of Care Planned Activity Planned Date Details Description Data Source (s) 0.9% NaCl IV 08/16/2019 05:17:42 PM [facility] 0.9% NaCl IV 08/16/2019 05:17:42 PM [facility]
--- NOTE | 2020-04-04 20:15 | PDOC ---
History of Present Illness - General Chief Complaint: Back Pain Stated Complaint: BACK PAIN Time Seen by Provider: 04/04/20 18:16 History Source: Patient Exam Limitations: No Limitations - History of Present Illness Initial Comments: 04/04/20 20:13 65 yo male with pmh 65 y/o M with hx of COVID-19, mesothelioma with long history of EtOH abuse, chronic back pain, and multiple ER visits secondary to EtOH abuse is presenting with chronic back pain and alcohol intox. Patient states that he feels like his normal self and was brought to the ED by EMS because of his intoxication. Pt otherwise denies: fevers, chills, syncope, lightheadedness, dizziness, headaches, neck pain, chest pain, shortness of breath, palpitations, abdominal pain, nausea, vomiting, diarrhea, constipation. Past History - Medical History Allergies/Adverse Reactions: Allergies Allergy/AdvReac Type Severity Reaction Status Date / Time Fish Containing Products Allergy Mild Swelling Verified 04/04/20 18:37 No Known Drug Allergies Allergy Verified 04/04/20 18:37 Home Medications: Ambulatory Orders NK [No Known Home Medication] 03/05/20 Anemia: No Asthma: No Cancer: Yes (mesothelioma lung cancer) Cardiac Disorders: No CVA: No COPD: No CHF: No DVT: No Dementia: No Diabetes: No Dialysis: No GI Disorders: No Disorders: No HTN: Yes (non compliant with meds.) Hypercholesterolemia: Yes Kidney Stones: No Liver Disease: Yes (ETOH abuse) Psychiatric Problems: Yes (ETOH abuse) Seizures: No Thyroid Disease: No Lung CA: Yes (Mesothelioma) - Surgical History Abdominal Surgery: No Appendectomy: No Cardiac Surgery: No Cholecystectomy: No Lung Surgery: No Neurologic Surgery: No Orthopedic Surgery: No - Reproductive History Testicular Surgery: No - Immunization History Td Vaccination: Yes TDAP Vaccination: Yes Immunization Up to Date: Yes - Psycho-Social/Smoking History Smoking Status: No Smoking History: Never smoked Have you smoked in the past 12 months: No Number of Cigarettes Smoked Daily: 0 If you are a former smoker, when did you quit?: 0 Cigars Per Day: 0 Information on smoking cessation initiated: No 'Breaking Loose' booklet given: 09/22/17 - Substance Abuse Hx (Audit-C & DAST Scrn) How often the patient has a drink containing alcohol: 4 0r more times/wk Number of drinks the patient has on a typical day: 10 or more How often the patient has six or more drinks on one occasion: Daily or almost daily Score: In Men: 4 or > Positive; In Women: 3 or > Positive: 12 Screen Result (Pos requires Nsg. Audit-10AR): Positive In the last yr the pt used illegal drug/Rx for NonMed reason: No Score: Yes response is considered Positive: 0 Screen Result (Positive result requires Nsg. DAST-10): Negative *Physical Exam - Vital Signs Last Vital Signs Temp Pulse Resp BP Pulse Ox 98.6 F 95 H 18 139/79 100 04/04/20 18:35 04/04/20 18:35 04/04/20 18:35 04/04/20 18:35 04/04/20 18:35 - Physical Exam 04/04/20 20:13 Gen: AAOx 3, no acute distress, comfortable, no signs of respiratory distress HENT: atraumatic, normocephalic with no laceration or contusion. Nasal mucosa without erythema. Oropharynx without erythema or exudates. Mucous membranes moist. EYES: PERRL, EOM intact, conjunctiva pink NECK: supple; trachea midline; no JVD, no lymphadenopathy, or thyromegaly CV: RRR no murmurs, gallops, or rubs. CHEST: CTA b/l no wheezing, rales or rhonchi ABD: +BS/ND. no TTP; soft, no rebound, no guarding EXTREMITY: no cyanosis or erythema. 2+ radial pulse. NEURO: normal speech, CN II-XII intact, sensation intact, no cerebellar deficits MS: 5/5 strength in all extremities, FROM intact in all extremities. Medical Decision Making - Medical Decision Making 04/04/20 20:14 65-year-old male here for alcohol and tox and chronic back pain Vital signs stable Patient appears well and is requesting to rest in the ED as well as requesting food We will provide patient with food and discharge when not sober Patient appears well speaking in full fluent sentences and ambulating in the ED. Patient ate a meal in the ED. Patient signed out to night team. Discharge - Discharge Information Problems reviewed: Yes Clinical Impression/Diagnosis: Alcohol abuse, Lumbar back pain Condition: Stable Disposition: ELOPED - Follow up/Referral - Patient Discharge Instructions - Post Discharge Activity
--- NOTE | 2020-04-04 21:13 | PDOC ---
*Physical Exam - Vital Signs Last Vital Signs Temp Pulse Resp BP Pulse Ox 98.6 F 95 H 18 139/79 100 04/04/20 18:35 04/04/20 18:35 04/04/20 18:35 04/04/20 18:35 04/04/20 18:35 Medical Decision Making - Medical Decision Making 04/04/20 21:13 Patient seen by the advanced practice provider under my supervision. Ancillary testing reviewed as necessary. I agree with plan as outlined by the advanced practice provider. Discharge - Discharge Information Problems reviewed: Yes Clinical Impression/Diagnosis: Alcohol abuse, Lumbar back pain - Follow up/Referral - Patient Discharge Instructions - Post Discharge Activity
[2020-04-05 05:43] VITALS: BP 130/68; PULSE 90
== END 2020-04-05 05:48 | disposition left against medical advice (07) ==
LOC: JER 18:13
DX: F10.10 Alcohol abuse, uncomplicated (principal); M54.5 Low back pain
CPT/HCPCS: 99283-25

== ENCOUNTER 2020-04-16 19:03 | Emergency (ER) | payer OTHER ==
[2020-04-16 19:54] VITALS: BMI 28.7
--- NOTE | 2020-04-16 21:19 | PDOC ---
History of Present Illness - General Chief Complaint: Chronic pain Stated Complaint: INTOXICATION Time Seen by Provider: 04/16/20 20:59 History Source: Patient, EMS - History of Present Illness Initial Comments: 04/16/20 22:04 65-year-old undomiciled male with history of alcohol abuse, chronic back pain complaining of lower back pain. Denies numbness or tingling to the lower extremity denies weakness to lower extremity denies incontinence of bowel or urine. Patient also complaining of left fourth digit pain reports injury several months ago. Denies trauma or fall. Patient seen by this provider last week noted to have head lice. Patient has abrasion to scalp from itching no trauma noted. denies alcohol use. Past History - Medical History Allergies/Adverse Reactions: Allergies Allergy/AdvReac Type Severity Reaction Status Date / Time Fish Containing Products Allergy Mild Swelling Verified 04/13/20 21:56 No Known Drug Allergies Allergy Verified 04/13/20 21:56 Home Medications: Ambulatory Orders NK [No Known Home Medication] 03/05/20 Anemia: No Asthma: No Cancer: Yes (mesothelioma lung cancer) Cardiac Disorders: No CVA: No COPD: No CHF: No DVT: No Dementia: No Diabetes: No Dialysis: No GI Disorders: No Disorders: No HTN: Yes (non compliant with meds.) Hypercholesterolemia: Yes Kidney Stones: No Liver Disease: Yes (ETOH abuse) Psychiatric Problems: Yes (ETOH abuse) Seizures: No Thyroid Disease: No Lung CA: Yes (Mesothelioma) - Surgical History Abdominal Surgery: No Appendectomy: No Cardiac Surgery: No Cholecystectomy: No Lung Surgery: No Neurologic Surgery: No Orthopedic Surgery: No - Reproductive History Testicular Surgery: No - Immunization History Td Vaccination: Yes TDAP Vaccination: Yes Immunization Up to Date: Yes - Psycho-Social/Smoking History Smoking Status: No Smoking History: Current some day smoker Have you smoked in the past 12 months: No Number of Cigarettes Smoked Daily: 0 If you are a former smoker, when did you quit?: 0 Cigars Per Day: 0 Information on smoking cessation initiated: Yes 'Breaking Loose' booklet given: 09/22/17 - Substance Abuse Hx (Audit-C & DAST Scrn) How often the patient has a drink containing alcohol: 4 0r more times/wk Number of drinks the patient has on a typical day: 10 or more How often the patient has six or more drinks on one occasion: Daily or almost daily Score: In Men: 4 or > Positive; In Women: 3 or > Positive: 12 Screen Result (Pos requires Nsg. Audit-10AR): Positive *Physical Exam - Vital Signs Last Vital Signs Temp Pulse Resp BP Pulse Ox 98.6 F 83 20 110/86 98 04/16/20 19:50 04/16/20 19:50 04/16/20 19:50 04/16/20 19:50 04/16/20 19:50 - Physical Exam General Appearance: Yes: Disheveled HEENT: positive: Other (abrasions to scalp from scratching) Extremity: positive: Normal Capillary Refill, Other (limited rom to left 4th digit, slight swelling) Integumentary: positive: Normal Color, Dry, Warm Neurologic: positive: Fully Oriented, Normal Mood/Affect, Normal Response, Motor Strength 5/5, Other (normocephalic) Medical Decision Making - Medical Decision Making A: finger injury; alcohol abuse; chronic back pain P: xray tylenol prn sober and d/c 04/17/20 05:18 finger splint applied to affected finger. will give hand referral 04/17/20 05:24 patient alert awake. no slurred speech. will d/c Discharge - Discharge Information Problems reviewed: Yes Clinical Impression/Diagnosis: Alcohol abuse Chronic back pain Qualifiers: Back pain location: low back pain Back pain laterality: bilateral Sciatica presence: without sciatica Qualified Code(s): M54.5 - Low back pain Injury of left middle finger Qualifiers: Encounter type: initial encounter Qualified Code(s): S69.92XA - Unspecified injury of left wrist, hand and finger(s), initial encounter Disposition: HOME - Follow up/Referral Referrals: Luis Carlos Urbano MD [Staff Physician] - Call tomorrow - Patient Discharge Instructions Patient Printed Discharge Instructions: DI for Finger Fracture Additional Instructions: Keep the finger splint on. Is very important that you follow-up with a hand surgeon. Avoid drinking alcohol return to the emergency room for any worsening symptoms - Post Discharge Activity
[2020-04-17] MEDS ORDERED: ACETAMINOPHEN 325 MG TABLET (FP) PO ONE (02:33)
[2020-04-17] MEDS ORDERED: ACETAMINOPHEN 325 MG TABLET (FP) ONE (03:22)
[2020-04-17 06:29] VITALS: BP 153/89; PULSE 90; TEMP 98.7
== END 2020-04-17 06:29 | disposition home or self-care (01) ==
LOC: JER 19:03
DX: F10.10 Alcohol abuse, uncomplicated (principal); M54.5 Low back pain; S69.92XA Unspecified injury of left wrist, hand and finger(s), initial encounter
CPT/HCPCS: 73130-TC-LT-FY; 73140-TC-LT-FY; 99284-25

== ENCOUNTER 2020-04-18 11:12 | Emergency (ER) | payer OTHER ==
[2020-04-18 11:38] VITALS: BP 145/78; PULSE 78; TEMP 97.5; BMI 36.6
--- NOTE | 2020-04-18 12:00 | PDOC ---
History of Present Illness - General Chief Complaint: Back Pain Stated Complaint: BACK PAIN Time Seen by Provider: 04/18/20 11:43 History Source: Patient Exam Limitations: No Limitations Past History - Travel History Traveled outside of the country in the last 30 days: No Close contact w/someone who was outside of country & ill: No - Medical History Allergies/Adverse Reactions: Allergies Allergy/AdvReac Type Severity Reaction Status Date / Time Fish Containing Products Allergy Mild Swelling Verified 04/18/20 11:38 No Known Drug Allergies Allergy Verified 04/18/20 11:38 Home Medications: Ambulatory Orders NK [No Known Home Medication] 03/05/20 Anemia: No Asthma: No Cancer: Yes (mesothelioma lung cancer) Cardiac Disorders: No CVA: No COPD: No CHF: No DVT: No Dementia: No Diabetes: No Dialysis: No GI Disorders: No Disorders: No HTN: Yes (non compliant with meds.) Hypercholesterolemia: Yes Kidney Stones: No Liver Disease: Yes (ETOH abuse) Psychiatric Problems: Yes (ETOH abuse) Seizures: No Thyroid Disease: No Lung CA: Yes (Mesothelioma) - Surgical History Abdominal Surgery: No Appendectomy: No Cardiac Surgery: No Cholecystectomy: No Lung Surgery: No Neurologic Surgery: No Orthopedic Surgery: No - Reproductive History Testicular Surgery: No - Immunization History Td Vaccination: Yes TDAP Vaccination: Yes Immunization Up to Date: Yes - Psycho-Social/Smoking History Smoking Status: No Smoking History: Never smoked Have you smoked in the past 12 months: No Number of Cigarettes Smoked Daily: 0 If you are a former smoker, when did you quit?: 0 Cigars Per Day: 0 Information on smoking cessation initiated: No 'Breaking Loose' booklet given: 09/22/17 - Substance Abuse Hx (Audit-C & DAST Scrn) How often the patient has a drink containing alcohol: Never Score: In Men: 4 or > Positive; In Women: 3 or > Positive: 0 Screen Result (Pos requires Nsg. Audit-10AR): Negative In the last yr the pt used illegal drug/Rx for NonMed reason: No Score: Yes response is considered Positive: 0 Screen Result (Positive result requires Nsg. DAST-10): Negative Review of Systems - Review of Systems Able to Perform ROS?: Yes Comments:: 04/18/20 16:00 CONSTITUTIONAL: Present: alcohol intoxication Absent: fever, chills, diaphoresis, generalized weakness, malaise, loss of appetite HEENT: Absent: rhinorrhea, nasal congestion, throat pain, throat swelling, difficulty swallowing, mouth swelling, ear pain, eye pain, visual Changes CARDIOVASCULAR: Absent: chest pain, loss of consciousness, palpitations, irregular heart rate, peripheral edema RESPIRATORY: Absent: cough, shortness of breath, dyspnea with exertion, orthopnea, wheezing, stridor, hemoptysis GASTROINTESTINAL: Absent: abdominal pain, abdominal distension, nausea, vomiting, diarrhea, constipation, melena, hematochezia GENITOURINARY: Absent: dysuria, frequency, urgency, hesitancy, hematuria, flank pain, genital pain MUSCULOSKELETAL: Absent: myalgia, arthralgia, joint swelling SKIN: Absent: rash, itching, pallor HEMATOLOGIC/IMMUNOLOGIC: Absent: easy bleeding, easy bruising, lymphadenopathy, frequent infections ENDOCRINE: Absent: unexplained weight gain, unexplained weight loss, heat intolerance, cold intolerance NEUROLOGIC: Absent: headache, focal weakness or paresthesias, dizziness, unsteady gait, seizure, mental status changes, bladder or bowel incontinence PSYCHIATRIC: Absent: anxiety, depression, suicidal or homicidal ideation, hallucinations. Is the patient limited Salvadorean proficient: No *Physical Exam - Vital Signs Last Vital Signs Temp Pulse Resp BP Pulse Ox 97.5 F L 78 23 H 145/78 95 04/18/20 11:36 04/18/20 11:36 04/18/20 11:36 04/18/20 11:36 04/18/20 11:36 - Physical Exam 04/18/20 16:00 GENERAL: Well developed, well nourished. Awake and alert. Alcohol intoxication. HEENT: Normocephalic, atraumatic. PERRLA, EOMI. No conjunctival pallor. Sclera are non- icteric. Moist mucous membranes. NECK: Supple. Full ROM. No lymphadenopathy. CARDIOVASCULAR: Regular rate and rhythm. Distal pulses are 2+ and symmetric. PULMONARY: No evidence of respiratory distress. Lungs clear to auscultation bilaterally. No wheezing, rales or rhonchi. ABDOMINAL: Soft. Non-tender. Non-distended. No rebound or guarding. No organomegaly. Normoactive bowel sounds. MUSCULOSKELETAL Normal range of motion at all joints. No bony deformities or tenderness. No CVA tenderness. EXTREMITIES: No cyanosis. No clubbing. No edema. No calf tenderness. SKIN: Warm and dry. Normal capillary refill. No rashes. No jaundice. NEUROLOGICAL: Alert, awake, appropriate. Cranial nerves 2-12 intact. Normal speech. Toes are down-going bilaterally. Gait is normal without ataxia. PSYCHIATRIC: Cooperative. Good eye contact. Appropriate mood and affect. Medical Decision Making - Medical Decision Making 04/18/20 16:02 The patient is a 63-year-old male past medical history of mesothelioma, well- known to the emergency department today who presents to the emergency today for intoxication. Patient states that he drank this morning. Alcohol is present on the breath. Patient is sitting in wheelchair gait not observed . Patient has no complaints at this time, denies fevers, chills, chest pain, difficulty breathing, back pain, nausea, vomiting and diarrhea. A/P: Alcohol intoxication. Patient c/o usual back pain at this time. Robaxin and Tylenol given with relief of symptoms Patient metabolize to freedom. Requesting a tray however there are no trays on the floor at this time. He states that he feels well and would like to leave at this time so he can go by food. Patient has metabolize to freedom Gait steady in the ER Discharge home Discharge - Discharge Information Problems reviewed: Yes Clinical Impression/Diagnosis: Alcohol intoxication Condition: Stable Disposition: HOME - Admission No - Follow up/Referral - Patient Discharge Instructions Patient Printed Discharge Instructions: Alcohol Use Disorder Additional Instructions: Stop drinking alcohol. Take tylenol as needed for back pain Follow up with your primary care doctor - Post Discharge Activity
--- NOTE | 2020-04-18 12:29 | PDOC ---
*Physical Exam - Vital Signs Last Vital Signs Temp Pulse Resp BP Pulse Ox 97.5 F L 78 23 H 145/78 95 04/18/20 11:36 04/18/20 11:36 04/18/20 11:36 04/18/20 11:36 04/18/20 11:36 - Physical Exam 04/18/20 12:28 The patient was examined by [Benito] under my direct supervision. I personally evaluated the patient. I concur with the above findings and the plan of care. Discharge - Discharge Information Problems reviewed: Yes Clinical Impression/Diagnosis: Alcohol intoxication Qualifiers: Complication of substance-induced condition: uncomplicated Qualified Code(s): F10.920 - Alcohol use, unspecified with intoxication, uncomplicated Condition: Stable Disposition: HOME - Follow up/Referral - Patient Discharge Instructions Patient Printed Discharge Instructions: Alcohol Use Disorder Additional Instructions: Stop drinking alcohol. Take tylenol as needed for back pain Follow up with your primary care doctor - Post Discharge Activity
[2020-04-18] MEDS ORDERED: ACETAMINOPHEN 325 MG TABLET (FP) PO ONE (13:19)
[2020-04-18] MEDS ORDERED: METHOCARBAMOL 500 MG TABLET PO ONE (13:19)
[2020-04-18] MEDS ORDERED: ACETAMINOPHEN 325 MG TABLET (FP) ONE (14:02)
[2020-04-18] MEDS ORDERED: METHOCARBAMOL 500 MG TABLET ONE (14:02)
== END 2020-04-18 14:28 | disposition home or self-care (01) ==
LOC: JER 11:12
DX: F10.920 Alcohol use, unspecified with intoxication, uncomplicated (principal)
CPT/HCPCS: 99284-25

== ENCOUNTER 2020-04-19 11:26 | Emergency (ER) | payer OTHER ==
[2020-04-19 11:53] VITALS: BP 113/65; PULSE 81; TEMP 98.2; BMI 33.0
--- NOTE | 2020-04-19 12:30 | PDOC ---
History of Present Illness - General Chief Complaint: Alcohol intoxication Stated Complaint: Alcohol intoxication Time Seen by Provider: 04/19/20 12:25 History Source: Patient, Old Records Exam Limitations: Intoxication - History of Present Illness Initial Comments: 04/19/20 12:30 Patients Doctor(s): PCP none History of Present Illness: 65-year-old male with past mental history of mesothelioma with long history of EtOH abuse and multiple ER visits and admission secondary to EtOH abuse is presented to the emergency department by EMS secondary to public intoxication. Patient presently states that he is experiencing pain to his lower back. Patient is not slurring his speech at this time but is unstable in gait and is intoxicated. Patient is presently able to deny chest pain, back pain, dizziness, blurred vision, nausea/vomiting, diarrhea, constipation, fever or chills. Patient denies use of any [id number] medication for the treatment of this complaint. Patient denies any sick contacts, travel outside the [place] or contact with any sick individuals who have been outside the [place]. Review of Systems: GENERAL/CONSTITUTIONAL: No fever or chills. No weakness. No weight change. HEAD, EYES, EARS, NOSE AND THROAT: No change in vision. No ear pain or discharge. No sore throat. CARDIOVASCULAR: No chest pain or shortness of breath. RESPIRATORY: No cough, wheezing, or hemoptysis. GASTROINTESTINAL: No nausea, vomiting, diarrhea or constipation. No rectal bleeding. GENITOURINARY: No dysuria, frequency, or change in urination. MUSCULOSKELETAL: No joint or muscle swelling or pain. No neck or back pain. SKIN AND BREASTS: No rash or easy bruising. NEUROLOGIC: No headache, vertigo, loss of consciousness, or loss of sensation. PSYCHIATRIC: EtOH abuse, No depression or anxiety. ENDOCRINE: No increased thirst. No abnormal weight change. HEMATOLOGIC/LYMPHATIC: No anemia, easy bleeding, or history of blood clots. ALLERGIC/IMMUNOLOGIC: No hives or skin allergy. No latex allergy. Past Medical History: Mesothelioma Family History: Mother with cancer Social History: EtOH abuse Surgical history: Denies Allergies: No known drug allergies Past History - Medical History Allergies/Adverse Reactions: Allergies Allergy/AdvReac Type Severity Reaction Status Date / Time Fish Containing Products Allergy Mild Swelling Verified 04/18/20 11:38 No Known Drug Allergies Allergy Verified 04/18/20 11:38 Home Medications: Ambulatory Orders NK [No Known Home Medication] 03/05/20 Anemia: No Asthma: No Cancer: Yes (mesothelioma lung cancer) Cardiac Disorders: No CVA: No COPD: No CHF: No DVT: No Dementia: No Diabetes: No Dialysis: No GI Disorders: No Disorders: No HTN: Yes (non compliant with meds.) Hypercholesterolemia: Yes Kidney Stones: No Liver Disease: Yes (ETOH abuse) Psychiatric Problems: Yes (ETOH abuse) Seizures: No Thyroid Disease: No Lung CA: Yes (Mesothelioma) - Surgical History Abdominal Surgery: No Appendectomy: No Cardiac Surgery: No Cholecystectomy: No Lung Surgery: No Neurologic Surgery: No Orthopedic Surgery: No - Reproductive History Testicular Surgery: No - Immunization History Td Vaccination: Yes TDAP Vaccination: Yes Immunization Up to Date: Yes - Psycho-Social/Smoking History Smoking Status: No Smoking History: Never smoked Have you smoked in the past 12 months: No Number of Cigarettes Smoked Daily: 0 If you are a former smoker, when did you quit?: 0 Cigars Per Day: 0 'Breaking Loose' booklet given: 09/22/17 - Substance Abuse Hx (Audit-C & DAST Scrn) How often the patient has a drink containing alcohol: 4 0r more times/wk Number of drinks the patient has on a typical day: 7 to 9 How often the patient has six or more drinks on one occasion: Daily or almost daily Score: In Men: 4 or > Positive; In Women: 3 or > Positive: 11 Screen Result (Pos requires Nsg. Audit-10AR): Positive In the last yr the pt used illegal drug/Rx for NonMed reason: No Score: Yes response is considered Positive: 0 Screen Result (Positive result requires Nsg. DAST-10): Negative *Physical Exam - Vital Signs Last Vital Signs Temp Pulse Resp BP Pulse Ox 98.2 F 81 17 113/65 96 04/19/20 11:50 04/19/20 11:50 04/19/20 11:50 04/19/20 11:50 04/19/20 11:50 Medical Decision Making - Medical Decision Making 04/19/20 12:30 A/P: Patient is a male with history of mesothelioma and EtOH abuse presented to the emergency department by EMS secondary to public intoxication. I will observe patient in the emergency department clinical sobriety is assessed. 04/19/20 14:21 Patient is requesting discharge. Able to ambulate with steady gait. Patient has eaten a full meal without vomiting. I feel it is safe to discharge home at this time. Portions of this note have been documented using voice recognition software. As a result, errors may occur in the log stacker operator process. Effort has been made to correct all grammatical and log stacker operator error, but some may have been missed which may produce sporadic inaccurate log stacker operator or nonsensical phrases. Discharge - Discharge Information Problems reviewed: Yes Clinical Impression/Diagnosis: Alcohol intoxication Condition: Fair Disposition: HOME - Admission No - Follow up/Referral - Patient Discharge Instructions Patient Printed Discharge Instructions: DI for Alcohol Use Disorder Additional Instructions: Drink plenty of nonalcoholic fluids. Follow-up with your primary doctor within 2 days for reevaluation. - Post Discharge Activity
== END 2020-04-19 15:35 | disposition home or self-care (01) ==
LOC: JER 11:26
DX: F10.920 Alcohol use, unspecified with intoxication, uncomplicated (principal)
CPT/HCPCS: 99283-25

== ENCOUNTER 2020-04-24 22:56 | Emergency (ER) | payer OTHER ==
[2020-04-24 23:41] VITALS: BMI 40.1
[2020-04-25 06:48] VITALS: BP 145/87; PULSE 95; TEMP 98.4
== END 2020-04-25 06:20 | disposition home or self-care (01) ==
LOC: JER 22:56
DX: F10.920 Alcohol use, unspecified with intoxication, uncomplicated (principal)
CPT/HCPCS: 99282-25

== ENCOUNTER 2020-04-26 14:07 | Emergency (ER) | payer OTHER ==
[2020-04-26 14:32] VITALS: BP 118/62; PULSE 87; TEMP 97.7; BMI 28.7
== END 2020-04-26 19:39 | disposition home or self-care (01) ==
LOC: JER 14:07
DX: F10.10 Alcohol abuse, uncomplicated (principal)
CPT/HCPCS: 99281-25

== ENCOUNTER 2020-05-02 22:53 | Emergency (ER) | payer OTHER ==
[~2020-05-02 22:53] MED LIST changes: -ACETAMINOPHEN 500 MG TABLET (FP) PO ONE; +LIDOCAINE PATCH REMOVAL MC SCH
[2020-05-02 23:09] VITALS: TEMP 98.4; BMI 28.7
[2020-05-02] MEDS ORDERED: LIDOCAINE 5% TOPICAL PATCH TP ONE (23:55)
[2020-05-03 06:18] VITALS: BP 118/76; PULSE 94
[2020-05-03] MEDS ORDERED: ALBUTEROL SO4 HFA INHALER IH ONE ×2 (08:40→08:44)
== END 2020-05-03 11:51 | disposition home or self-care (01) ==
LOC: JER 22:53
DX: M54.5 Low back pain (principal); R07.9 Chest pain, unspecified; F10.10 Alcohol abuse, uncomplicated
CPT/HCPCS: 71045-TC-FY; 99283-25

== ENCOUNTER 2020-05-04 22:14 | Inpatient (IN) | payer OTHER ==
[2020-05-05 08:53] LABS: EOS % 2.2 % (0-4.5); HEMATOCRIT 27.1 % (35.4-49); HEMOGLOBIN 8.5 GM/dL (11.7-16.9); LYMPH % 13.6 % (8-40); MCH 24.4 pg (25.7-33.7); MCHC 31.2 g/dl (32.0-35.9); MEAN CELL VOLUME 78.3 fl (80-96); MEAN PLT VOLUME 7.2 fl (7.5-11.1); MONO % 6.8 % (3.8-10.2); NEUT % 76.4 % (42.8-82.8); PLATELET COUNT 271 K/MM3 (134-434); RBC 3.47 M/mm3 (4.00-5.60); RDW 20.5 % (11.9-15.9); WHITE BLOOD COUNT 7.6 K/mm3 (4.0-10.0)
[2020-05-05 09:01] LABS: INR 0.98 (0.83-1.09); PROTHROMBIN TIME (PATIENT) 12.1 SEC (9.7-13.0)
[2020-05-05 09:04] LABS: ACTIVATED PTT 21.5 SECONDS (25.2-36.5)
[2020-05-05 09:24] LABS: CHLORIDE 109 mmol/L (98-107); POTASSIUM 3.6 mmol/L (3.5-5.1); SODIUM 145 mmol/L (136-145)
[2020-05-05 09:26] LABS: ALBUMIN 2.8 g/dl (3.4-5.0); ANION GAP 7 MMOL/L (8-16); BLOOD UREA NITROGEN 7.4 mg/dL (7-18); CALCIUM 8.7 mg/dL (8.5-10.1); CO2 30 mmol/L (21-32); GLUCOSE,RANDOM 93 mg/dL (74-106); MAGNESIUM 1.7 mg/dL (1.8-2.4)
[2020-05-05 09:29] LABS: CREATININE 0.6 mg/dL (0.55-1.3); SGOT/AST 29 U/L (15-37); SGPT/ALT 36 U/L (13-61)
[2020-05-05 09:31] LABS: BILIRUBIN,TOTAL 0.4 mg/dL (0.2-1); TOT PROT 5.7 g/dl (6.4-8.2)
[2020-05-05 09:33] LABS: ALK PHOS 96 U/L (45-117)
[2020-05-05 09:34] LABS: N-TERMINAL BNP 117.8 pg/ml (5-125)
[2020-05-05] MEDS ORDERED: AZITHROMYCIN IVPB 500 MG in DEXTROSE 5%-WATER - 250 ML IVPB ONE (09:54)
[2020-05-05] MEDS ORDERED: CEFTRIAXONE 1 GM in DEXTROSE 5%-WATER - 100 ML IVPB ONE (09:54)
[2020-05-05] MEDS ORDERED: FUROSEMIDE 40 MG/4 ML INJECTABLE VIAL IVPUSH ONE (09:55)
[2020-05-05] MEDS ORDERED: MAGNESIUM SULF 50% (8.12 MEQ/2 ML-1 GM VIAL) IVPB ONE (10:11)
[2020-05-05 10:22] LABS: ANISOCYTOSIS 2+; PLATELET ESTIMATE NORMAL; TARGET CELLS 1+
[2020-05-05] MEDS ORDERED: FUROSEMIDE 40 MG/4 ML INJECTABLE VIAL ONE (10:36)
[2020-05-05] MEDS ORDERED: CEFTRIAXONE 1 GM/50 ML BAG ONE (10:36)
[2020-05-05] MEDS ORDERED: AZITHROMYCIN IVPB 500 MG/250 ML BAG IVPB ONE (10:37)
[2020-05-05] MEDS ORDERED: chlordiazePOXIDE HCL 25 MG CAPSULE PO ONE (11:00)
[2020-05-05] MEDS ORDERED: MAGNESIUM SULFATE IN WATER 2 GM/50 ML IVPB IVPB ONE (11:08)
[2020-05-05] MEDS ORDERED: chlordiazePOXIDE HCL 25 MG CAPSULE ONE ×2 (11:08→16:57)
[2020-05-05] MEDS ORDERED: chlordiazePOXIDE HCL 25 MG CAPSULE PO PRN (13:54)
[2020-05-05] MEDS: chlordiazePOXIDE HCL 25 MG CAPSULE PO SCH ×2 (17:07→22:55)
[2020-05-05 21:01] VITALS: BMI 36.8
[2020-05-06] MEDS: chlordiazePOXIDE HCL 25 MG CAPSULE PO SCH ×4 (05:47→23:25)
[2020-05-06 08:11] LABS: POTASSIUM 3.5 mmol/L (3.5-5.1)
[2020-05-06 08:14] LABS: CALCIUM 8.3 mg/dL (8.5-10.1); HEMATOCRIT 28.3 % (35.4-49); HEMOGLOBIN 8.9 GM/dL (11.7-16.9); MAGNESIUM 1.8 mg/dL (1.8-2.4); MCH 24.3 pg (25.7-33.7); MCHC 31.3 g/dl (32.0-35.9); MEAN CELL VOLUME 77.7 fl (80-96); RBC 3.65 M/mm3 (4.00-5.60); WHITE BLOOD COUNT 8.2 K/mm3 (4.0-10.0)
[2020-05-06 08:15] LABS: PLATELET COUNT 293 K/MM3 (134-434)
[2020-05-06 08:16] LABS: ALBUMIN 2.8 g/dl (3.4-5.0); BLOOD UREA NITROGEN 7.1 mg/dL (7-18)
[2020-05-06 08:19] LABS: CREATININE 0.6 mg/dL (0.55-1.3); TOT PROT 5.8 g/dl (6.4-8.2)
[2020-05-06 08:21] LABS: PHOSPHOROUS 3.1 mg/dL (2.5-4.9)
[2020-05-06] MEDS ORDERED: DEXTROSE 5%-WATER - 50 ML IVPB ONE (09:22)
[2020-05-06] MEDS ORDERED: cefTRIAXone SODIUM 1 GM VIAL ONE (09:22)
[2020-05-06] MEDS: CEFTRIAXONE 1 GM in DEXTROSE 5%-WATER - 50 ML IVPB SCH (09:23)
[2020-05-06] MEDS: ENOXAPARIN NA (PORCINE) 40 MG/0.4 ML DISP.SYRIN SQ SCH (09:24)
[2020-05-06] MEDS: AZITHROMYCIN IVPB 250 MG in DEXTROSE 5%-WATER - 250 ML IVPB SCH (10:47)
[2020-05-06] MEDS ORDERED: ACETAMINOPHEN 325 MG TABLET (FP) PO PRN (13:16)
[2020-05-07] MEDS: chlordiazePOXIDE HCL 25 MG CAPSULE PO SCH ×4 (05:59→22:09)
[2020-05-07] MEDS ORDERED: cefTRIAXone SODIUM 1 GM VIAL ONE (09:26)
[2020-05-07] MEDS ORDERED: DEXTROSE 5%-WATER - 50 ML IVPB ONE (09:26)
[2020-05-07] MEDS: CEFTRIAXONE 1 GM in DEXTROSE 5%-WATER - 50 ML IVPB SCH (09:29)
[2020-05-07] MEDS: ENOXAPARIN NA (PORCINE) 40 MG/0.4 ML DISP.SYRIN SQ SCH (09:29)
[2020-05-07] MEDS: AZITHROMYCIN IVPB 250 MG in DEXTROSE 5%-WATER - 250 ML IVPB SCH (10:47)
[2020-05-08] MEDS ORDERED: chlordiazePOXIDE HCL 10 MG CAPSULE PO PRN
[2020-05-08] MEDS: chlordiazePOXIDE HCL 10 MG CAPSULE PO SCH ×4 (05:25→22:16)
[2020-05-08 08:15] LABS: HEMATOCRIT 29.2 % (35.4-49); HEMOGLOBIN 9.2 GM/dL (11.7-16.9); MCH 24.8 pg (25.7-33.7); MCHC 31.5 g/dl (32.0-35.9); MEAN CELL VOLUME 78.9 fl (80-96); MEAN PLT VOLUME 7.9 fl (7.5-11.1); PLATELET COUNT 289 K/MM3 (134-434); RDW 21.1 % (11.9-15.9); WHITE BLOOD COUNT 8.1 K/mm3 (4.0-10.0)
[2020-05-08 08:39] LABS: POTASSIUM 3.5 mmol/L (3.5-5.1)
[2020-05-08 08:41] LABS: CALCIUM 8.4 mg/dL (8.5-10.1)
[2020-05-08 08:42] LABS: BLOOD UREA NITROGEN 4.9 mg/dL (7-18); MAGNESIUM 1.7 mg/dL (1.8-2.4)
[2020-05-08 08:45] LABS: CREATININE 0.6 mg/dL (0.55-1.3); PHOSPHOROUS 3.4 mg/dL (2.5-4.9)
[2020-05-08] MEDS ORDERED: DEXTROSE 5%-WATER - 50 ML IVPB ONE (09:16)
[2020-05-08] MEDS ORDERED: cefTRIAXone SODIUM 1 GM VIAL ONE (09:16)
[2020-05-08] MEDS: ENOXAPARIN NA (PORCINE) 40 MG/0.4 ML DISP.SYRIN SQ SCH (09:17)
[2020-05-08] MEDS: CEFTRIAXONE 1 GM in DEXTROSE 5%-WATER - 50 ML IVPB SCH (09:18)
[2020-05-08] MEDS ORDERED: MAGNESIUM SULF 50% (8.12 MEQ/2 ML-1 GM VIAL) IVPB ONE (11:11)
[2020-05-08] MEDS: AZITHROMYCIN IVPB 250 MG in DEXTROSE 5%-WATER - 250 ML IVPB SCH (11:19)
[2020-05-08] MEDS ORDERED: MAGNESIUM SULFATE IN WATER 2 GM/50 ML IVPB IVPB ONE (11:30)
[2020-05-09 03:08] VITALS: BP 153/96; PULSE 88; TEMP 98.3
[2020-05-09] MEDS ORDERED: chlordiazePOXIDE HCL 10 MG CAPSULE PO SCH (05:00)
[2020-05-09 08:18] LABS: HEMATOCRIT 30.7 % (35.4-49); HEMOGLOBIN 9.2 GM/dL (11.7-16.9); MCH 23.9 pg (25.7-33.7); MCHC 30.1 g/dl (32.0-35.9); MEAN CELL VOLUME 79.4 fl (80-96); MEAN PLT VOLUME 7.8 fl (7.5-11.1); PLATELET COUNT 307 K/MM3 (134-434); RBC 3.87 M/mm3 (4.00-5.60); WHITE BLOOD COUNT 8.8 K/mm3 (4.0-10.0)
[2020-05-09 08:28] LABS: POTASSIUM 3.7 mmol/L (3.5-5.1)
[2020-05-09 08:30] LABS: CALCIUM 8.7 mg/dL (8.5-10.1)
[2020-05-09 08:31] LABS: BLOOD UREA NITROGEN 4.1 mg/dL (7-18); MAGNESIUM 1.9 mg/dL (1.8-2.4)
[2020-05-09 08:34] LABS: CREATININE 0.5 mg/dL (0.55-1.3)
[2020-05-09] MEDS ORDERED: DEXTROSE 5%-WATER - 50 ML IVPB ONE (10:01)
[2020-05-09] MEDS ORDERED: cefTRIAXone SODIUM 1 GM VIAL ONE (10:01)
[2020-05-09] MEDS ORDERED: LIDOCAINE 5% TOPICAL PATCH TP ONE (10:02)
[2020-05-09] MEDS ORDERED: MAGNESIUM 2GM/50ML STERILE WATER IVPB IVPB ONE (10:30)
[2020-05-09] MEDS: ENOXAPARIN NA (PORCINE) 40 MG/0.4 ML DISP.SYRIN SQ SCH (10:31)
[2020-05-09] MEDS: CEFTRIAXONE 1 GM in DEXTROSE 5%-WATER - 50 ML IVPB SCH (10:39)
[2020-05-09] MEDS: AZITHROMYCIN IVPB 250 MG in DEXTROSE 5%-WATER - 250 ML IVPB SCH (11:28)
[2020-05-09] MEDS ORDERED: LIDOCAINE PATCH REMOVAL MC SCH (22:00)
[2020-05-10] MEDS ORDERED: chlordiazePOXIDE HCL 10 MG CAPSULE PO ONE (05:00)
== END 2020-05-09 14:05 | disposition left against medical advice (07) | DRG 139 ==
LOC: JER 22:14 → JERBED 05-05 10:09 → J6S 05-05 20:06
PROVIDERS: ADMIT Internal Medicine; ATTEND Internal Medicine
DX: J18.9 Pneumonia, unspecified organism (principal); R07.9 Chest pain, unspecified; F10.230 Alcohol dependence with withdrawal, uncomplicated; C45.9 Mesothelioma, unspecified; K76.0 Fatty (change of) liver, not elsewhere classified; E87.70 Fluid overload, unspecified
CPT/HCPCS: 36415; 71045-TC-FY; 73130-TC-RT-FY; 76705-TC; 80048; 80053; 82550; 83036; 83735; 83880; 84100; 84484; 85025; 85027; 85610; 85730; 87804; 93005; 93010; 99285-25; C9803; U0003

== ENCOUNTER 2020-05-09 19:30 | Emergency (ER) | payer OTHER ==
[2020-05-09 19:58] VITALS: TEMP 98.3; BMI 31.5
[2020-05-10 05:11] VITALS: BP 110/56; PULSE 74
== END 2020-05-10 06:11 | disposition home or self-care (01) ==
LOC: JER 19:30
DX: F10.20 Alcohol dependence, uncomplicated (principal)
CPT/HCPCS: 99281-25

== ENCOUNTER 2020-05-13 04:14 | Emergency (ER) | payer OTHER ==
[2020-05-13 04:27] VITALS: BP 116/87; PULSE 88; BMI 28.7
[2020-05-13] MEDS ORDERED: diazePAM 5 MG TABLET PO ONE (04:42)
[2020-05-13] MEDS ORDERED: METHOCARBAMOL 500 MG TABLET PO ONE (04:49)
[2020-05-13 04:54] VITALS: TEMP 98.6
== END 2020-05-13 08:59 | disposition left against medical advice (07) ==
LOC: JER 04:14
DX: M54.9 Dorsalgia, unspecified (principal); F10.10 Alcohol abuse, uncomplicated
CPT/HCPCS: 99284-25

== ENCOUNTER 2020-05-13 17:12 | Emergency (ER) | payer OTHER ==
[2020-05-13 17:46] VITALS: BMI 36.0
[2020-05-14] MEDS ORDERED: METHOCARBAMOL 500 MG TABLET PO ONE (00:21)
[2020-05-14] MEDS ORDERED: LIDOCAINE 5% TOPICAL PATCH TP ONE (00:22)
[2020-05-14 04:00] VITALS: BP 131/77; PULSE 89; TEMP 98.4
[2020-05-14] MEDS ORDERED: LIDOCAINE PATCH REMOVAL MC SCH (22:00)
== END 2020-05-14 06:19 | disposition home or self-care (01) ==
LOC: JER 17:12
DX: M54.9 Dorsalgia, unspecified (principal); F10.10 Alcohol abuse, uncomplicated
CPT/HCPCS: 99283-25

== ENCOUNTER 2020-05-19 14:07 | Emergency (ER) | payer OTHER ==
[2020-05-19 14:38] VITALS: BP 132/83; PULSE 81; TEMP 97.9; BMI 41.5
== END 2020-05-19 18:04 | disposition home or self-care (01) ==
LOC: JER 14:07
DX: F19.920 Other psychoactive substance use, unspecified with intoxication, uncomplicated (principal)
CPT/HCPCS: 99283-25

== ENCOUNTER 2020-05-20 17:51 | Emergency (ER) | payer OTHER ==
[2020-05-20 17:53] VITALS: TEMP 97; BMI 38.2
[2020-05-20] MEDS ORDERED: ACETAMINOPHEN 325 MG TABLET (FP) PO ONE (20:53)
[2020-05-20] MEDS ORDERED: ACETAMINOPHEN 325 MG TABLET (FP) ONE (21:39)
[2020-05-21] MEDS ORDERED: NAPROXEN 250 MG TABLET PO ONE (06:21)
[2020-05-21] MEDS ORDERED: ONDANSETRON *ODT* 4 MG TABLET SL ONE (06:21)
[2020-05-21 06:42] VITALS: BP 138/78; PULSE 105
== END 2020-05-21 06:42 | disposition home or self-care (01) ==
LOC: JER 17:51
DX: F10.10 Alcohol abuse, uncomplicated (principal)
CPT/HCPCS: 99283-25; Q0162

== ENCOUNTER 2020-05-22 11:08 | Emergency (ER) | payer OTHER ==
[2020-05-22 11:13] VITALS: BP 134/85; PULSE 80; TEMP 98.2; BMI 43.2
[2020-05-22] MEDS ORDERED: ACETAMINOPHEN 325 MG TABLET (FP) PO ONE (11:54)
[2020-05-22] MEDS ORDERED: ACETAMINOPHEN 500 MG TABLET (FP) ONE (12:00)
== END 2020-05-22 13:07 | disposition home or self-care (01) ==
LOC: JERFT 11:08
DX: F10.920 Alcohol use, unspecified with intoxication, uncomplicated (principal); M54.2 Cervicalgia
CPT/HCPCS: 99283-25

== ENCOUNTER 2020-05-22 17:10 | Emergency (ER) | payer OTHER ==
[2020-05-22 17:34] VITALS: BP 140/90; PULSE 87; TEMP 98.5; BMI 33.3
== END 2020-05-22 19:20 | disposition home or self-care (01) ==
LOC: JER 17:10
DX: M54.5 Low back pain (principal); F10.10 Alcohol abuse, uncomplicated
CPT/HCPCS: 99282-25

== ENCOUNTER 2020-05-24 14:21 | Emergency (ER) | payer OTHER ==
[2020-05-24 14:38] VITALS: TEMP 97.6; BMI 40.3
[2020-05-24 20:22] VITALS: BP 132/71; PULSE 88
== END 2020-05-24 21:01 | disposition home or self-care (01) ==
LOC: JER 14:21
DX: F10.10 Alcohol abuse, uncomplicated (principal); M54.5 Low back pain
CPT/HCPCS: 99283-25

== ENCOUNTER 2020-05-25 07:10 | Observation (INO) | payer OTHER ==
[2020-05-25 07:31] VITALS: BMI 36.6
[2020-05-25] MEDS ORDERED: chlordiazePOXIDE HCL 25 MG CAPSULE PO ONE (08:14)
[2020-05-25] MEDS ORDERED: chlordiazePOXIDE HCL 25 MG CAPSULE ONE (08:44)
[2020-05-25 10:01] LABS: HEMATOCRIT 32.5 % (35.4-49); HEMOGLOBIN 9.6 GM/dL (11.7-16.9); MCH 22.5 pg (25.7-33.7); MCHC 29.7 g/dl (32.0-35.9); MEAN PLT VOLUME 7.5 fl (7.5-11.1); PLATELET COUNT 249 K/MM3 (134-434); RBC 4.28 M/mm3 (4.00-5.60); RDW 20.1 % (11.9-15.9); WHITE BLOOD COUNT 7.5 K/mm3 (4.0-10.0)
[2020-05-25 10:17] LABS: CHLORIDE 104 mmol/L (98-107); POTASSIUM 3.5 mmol/L (3.5-5.1); SODIUM 143 mmol/L (136-145)
[2020-05-25 10:18] LABS: CALCIUM 8.7 mg/dL (8.5-10.1)
[2020-05-25 10:19] LABS: ALBUMIN 3.4 g/dl (3.4-5.0); ANION GAP 7 MMOL/L (8-16); BLOOD UREA NITROGEN 7.2 mg/dL (7-18); CO2 31 mmol/L (21-32); GLUCOSE,RANDOM 79 mg/dL (74-106)
[2020-05-25 10:22] LABS: CREATININE 0.7 mg/dL (0.55-1.3); SGOT/AST 23 U/L (15-37)
[2020-05-25 10:24] LABS: BILIRUBIN,TOTAL 1.2 mg/dL (0.2-1); TOT PROT 6.5 g/dl (6.4-8.2)
[2020-05-25 10:25] LABS: ALK PHOS 109 U/L (45-117)
[2020-05-25 10:27] LABS: SGPT/ALT 15 U/L (13-61)
[2020-05-25] MEDS ORDERED: chlordiazePOXIDE HCL 25 MG CAPSULE PO SCH (11:00)
[2020-05-25] MEDS ORDERED: chlordiazePOXIDE HCL 25 MG CAPSULE PO PRN (12:05)
[2020-05-25] MEDS ORDERED: FOLIC ACID 1 MG TABLET (FP) ONE (12:17)
[2020-05-25] MEDS ORDERED: THIAMINE HCL 100 MG TABLET (FP) ONE (12:17)
[2020-05-25] MEDS: THIAMINE HCL 100 MG TABLET (FP) PO SCH (12:20)
[2020-05-25] MEDS: FOLIC ACID 1 MG TABLET (FP) PO SCH (12:20)
[2020-05-25 14:02] LABS: MAGNESIUM 1.3 mg/dL (1.8-2.4)
[2020-05-25 14:05] LABS: PHOSPHOROUS 3.3 mg/dL (2.5-4.9)
[2020-05-25] MEDS ORDERED: MAGNESIUM SULF 50% (8.12 MEQ/2 ML-1 GM VIAL) IVPB ONE (19:47)
[2020-05-25] MEDS: chlordiazePOXIDE HCL 25 MG CAPSULE PO PRN (22:00)
[2020-05-26 07:44] LABS: INR 1.11 (0.83-1.09); PROTHROMBIN TIME (PATIENT) 13.6 SEC (9.7-13.0)
[2020-05-26 07:45] LABS: HEMATOCRIT 33.1 % (35.4-49); MCH 22.9 pg (25.7-33.7); MCHC 30.2 g/dl (32.0-35.9); MEAN CELL VOLUME 75.9 fl (80-96); MEAN PLT VOLUME 7.5 fl (7.5-11.1); PLATELET COUNT 233 K/MM3 (134-434); RBC 4.36 M/mm3 (4.00-5.60); RDW 20.1 % (11.9-15.9); WHITE BLOOD COUNT 7.1 K/mm3 (4.0-10.0)
[2020-05-26 07:51] LABS: POTASSIUM 3.1 mmol/L (3.5-5.1)
[2020-05-26 07:55] LABS: CALCIUM 8.5 mg/dL (8.5-10.1)
[2020-05-26 07:56] LABS: BLOOD UREA NITROGEN 4.9 mg/dL (7-18); MAGNESIUM 1.3 mg/dL (1.8-2.4)
[2020-05-26 07:59] LABS: CREATININE 0.5 mg/dL (0.55-1.3); PHOSPHOROUS 3.4 mg/dL (2.5-4.9)
[2020-05-26] MEDS ORDERED: POTASSIUM CHLORIDE TABS 20 MEQ TABLET.ER (FP) PO ONE (08:17)
[2020-05-26 09:07] LABS: EPI CELLS 1 /uL (0-25.1); HYALINE CASTS 0 /uL (0-3.1); PH,URINE 8.5 (5.0-8.0); URINE APPEARANCE CLEAR; URINE BACTERIA 5 /uL (0-1359); URINE BILIRUBIN NEGATIVE (NEGATIVE); URINE COLOR YELLOW; URINE GLUCOSE (UA) NEGATIVE (NEGATIVE); URINE KETONE NEGATIVE (NEGATIVE); URINE LEUK ESTERASE NEGATIVE (NEGATIVE); URINE NITRITE NEGATIVE (NEGATIVE); URINE PROTEIN NEGATIVE (NEGATIVE); URINE RBC 46 /uL (0-23.9); URINE UROBILINOGEN 0.2 mg/dL (0.2-1.0); URINE WBC 4 /uL (0-25.8)
[2020-05-26] MEDS: ENOXAPARIN NA (PORCINE) 40 MG/0.4 ML DISP.SYRIN SQ SCH (10:22)
[2020-05-26] MEDS: chlordiazePOXIDE HCL 25 MG CAPSULE PO PRN (10:23)
[2020-05-26] MEDS: FOLIC ACID 1 MG TABLET (FP) PO SCH (10:23)
[2020-05-26] MEDS: THIAMINE HCL 100 MG TABLET (FP) PO SCH (10:23)
[2020-05-26] MEDS: KCL 10 MEQ IVPB 10 MEQ/100 ML INFUS.BAG IVPB SCH ×3 (11:00→19:28)
[2020-05-27] MEDS ORDERED: chlordiazePOXIDE HCL 25 MG CAPSULE PO SCH (05:00)
[2020-05-27 06:45] LABS: POTASSIUM 3.2 mmol/L (3.5-5.1)
[2020-05-27 06:48] LABS: CALCIUM 8.3 mg/dL (8.5-10.1)
[2020-05-27 06:49] LABS: ALBUMIN 2.8 g/dl (3.4-5.0); BLOOD UREA NITROGEN 5.3 mg/dL (7-18)
[2020-05-27 06:52] LABS: CREATININE 0.6 mg/dL (0.55-1.3)
[2020-05-27 06:54] LABS: TOT PROT 5.8 g/dl (6.4-8.2)
[2020-05-27] MEDS ORDERED: KCL 10 MEQ IVPB 10 MEQ/100 ML INFUS.BAG IVPB SCH (08:15)
[2020-05-27] MEDS ORDERED: MAGNESIUM OXIDE 400 MG TABLET (FP) PO ONE (09:02)
[2020-05-27] MEDS: KCL 10 MEQ IVPB 10 MEQ/100 ML INFUS.BAG IVPB SCH ×3 (09:39→10:51)
[2020-05-27] MEDS: THIAMINE HCL 100 MG TABLET (FP) PO SCH (10:12)
[2020-05-27] MEDS: chlordiazePOXIDE HCL 25 MG CAPSULE PO PRN (10:12)
[2020-05-27] MEDS: FOLIC ACID 1 MG TABLET (FP) PO SCH (10:12)
[2020-05-27] MEDS: ENOXAPARIN NA (PORCINE) 40 MG/0.4 ML DISP.SYRIN SQ SCH (10:12)
[2020-05-27] MEDS ORDERED: TERBUTALINE SULFATE 2.5 MG TABLET PO SCH (12:45)
[2020-05-27] MEDS ORDERED: traMADol HCL 50 MG TABLET PO ONE (12:52)
[2020-05-27 15:03] VITALS: BP 150/95; PULSE 96; TEMP 98.6
[2020-05-28] MEDS ORDERED: chlordiazePOXIDE HCL 10 MG CAPSULE PO PRN
[2020-05-28] MEDS ORDERED: chlordiazePOXIDE HCL 10 MG CAPSULE PO SCH (05:00)
[2020-05-29] MEDS ORDERED: chlordiazePOXIDE HCL 10 MG CAPSULE PO SCH (05:00)
[2020-05-30] MEDS ORDERED: chlordiazePOXIDE HCL 10 MG CAPSULE PO ONE (05:00)
== END 2020-05-27 16:20 | disposition home or self-care (01) ==
LOC: JER 07:10 → JERBED 10:48 → INTOOBSV 10:48 → J4W 15:13
PROVIDERS: ADMIT Internal Medicine; ATTEND Student in an Organized Health Care Education/Training Program
PROC: 3E0F7GC Introduction of Other Therapeutic Substance into Respiratory Tract, Via Natural or Artificial Opening (ICD-10-PCS; principal; 2020-05-25)
PROC: 3E023GC Introduction of Other Therapeutic Substance into Muscle, Percutaneous Approach (ICD-10-PCS; 2020-05-25)
DX: F10.10 Alcohol abuse, uncomplicated (principal); C45.9 Mesothelioma, unspecified; M54.9 Dorsalgia, unspecified; I10 Essential (primary) hypertension; K70.9 Alcoholic liver disease, unspecified; E78.00 Pure hypercholesterolemia, unspecified; Z91.013 Allergy to seafood; F17.210 Nicotine dependence, cigarettes, uncomplicated
CPT/HCPCS: 36415; 71045-TC-FY; 80048; 80053; 81003; 82550; 83735; 84100; 84484; 85027; 85610; 93005; 93010; 94640; 96372; 97116-GP; 99285-25; C9803; G0378; U0003

== ENCOUNTER 2020-05-28 14:48 | Emergency (ER) | payer OTHER ==
[2020-05-28 15:05] VITALS: TEMP 98.9; BMI 39.6
[2020-05-28] MEDS ORDERED: ACETAMINOPHEN 500 MG TABLET (FP) PO ONE (16:40)
[2020-05-28] MEDS ORDERED: ACETAMINOPHEN 325 MG TABLET (FP) ONE (17:33)
[2020-05-28 20:39] VITALS: BP 108/69; PULSE 97
== END 2020-05-28 20:39 | disposition home or self-care (01) ==
LOC: JER 14:48
DX: Z76.5 Malingerer [conscious simulation] (principal)
CPT/HCPCS: 99283-25

== ENCOUNTER 2020-05-29 03:26 | Emergency (ER) | payer OTHER ==
[2020-05-29 04:06] VITALS: BP 139/76; PULSE 97; TEMP 98.1; BMI 36.9
== END 2020-05-29 06:40 | disposition home or self-care (01) ==
LOC: JER 03:26
DX: M54.5 Low back pain (principal)
CPT/HCPCS: 99282-25

== ENCOUNTER 2020-05-30 20:25 | Emergency (ER) | payer OTHER ==
[2020-05-30 21:24] VITALS: BP 119/68; PULSE 81; TEMP 98; BMI 39.1
== END 2020-05-31 06:36 | disposition home or self-care (01) ==
LOC: JER 20:25
DX: M54.9 Dorsalgia, unspecified (principal); Z59.0 Homelessness
CPT/HCPCS: 99283-25

== ENCOUNTER 2020-05-31 08:57 | Emergency (ER) | payer OTHER ==
[2020-05-31 09:03] VITALS: BP 136/78; PULSE 88; TEMP 97.6; BMI 34.4
[2020-05-31] MEDS ORDERED: chlordiazePOXIDE HCL 25 MG CAPSULE PO ONE (09:26)
[2020-05-31] MEDS ORDERED: chlordiazePOXIDE HCL 25 MG CAPSULE ONE (09:52)
== END 2020-05-31 14:43 | disposition home or self-care (01) ==
LOC: JER 08:57
DX: F10.230 Alcohol dependence with withdrawal, uncomplicated (principal)
CPT/HCPCS: 99283-25

== ENCOUNTER 2020-06-02 16:51 | Emergency (ER) | payer OTHER ==
[2020-06-02 17:15] VITALS: BMI 30.1
[2020-06-03 06:11] VITALS: BP 132/74; PULSE 104; TEMP 99.3
== END 2020-06-03 06:23 ==
LOC: JER 16:51
DX: F10.920 Alcohol use, unspecified with intoxication, uncomplicated (principal); Z59.0 Homelessness
CPT/HCPCS: 99281-25

== ENCOUNTER 2020-06-03 14:42 | Emergency (ER) | payer OTHER ==
[2020-06-03 15:08] VITALS: BP 138/74; PULSE 86; TEMP 97.8; BMI 38.7
[2020-06-03] MEDS ORDERED: LIDOCAINE 5% TOPICAL PATCH TP ONE (17:27)
[2020-06-03] MEDS ORDERED: METHOCARBAMOL 500 MG TABLET PO ONE (17:27)
[2020-06-03] MEDS ORDERED: ACETAMINOPHEN 325 MG TABLET (FP) PO ONE (17:39)
[2020-06-03] MEDS ORDERED: chlordiazePOXIDE HCL 25 MG CAPSULE PO ONE (17:42)
[2020-06-03] MEDS ORDERED: ACETAMINOPHEN 325 MG TABLET (FP) ONE (19:19)
[2020-06-03] MEDS ORDERED: chlordiazePOXIDE HCL 25 MG CAPSULE ONE (19:19)
== END 2020-06-03 19:15 | disposition home or self-care (01) ==
LOC: JER 14:42
DX: F10.20 Alcohol dependence, uncomplicated (principal); M53.3 Sacrococcygeal disorders, not elsewhere classified; G89.29 Other chronic pain
CPT/HCPCS: 99283-25

== ENCOUNTER 2020-06-03 23:20 | Emergency (ER) | payer OTHER ==
[2020-06-03 23:24] VITALS: BMI 28.7
[2020-06-04] MEDS ORDERED: LIDOCAINE 5% TOPICAL PATCH TP ONE (01:29)
[2020-06-04] MEDS ORDERED: LIDOCAINE 5% TOPICAL PATCH ONE (01:42)
[2020-06-04 07:55] VITALS: BP 115/69; PULSE 75; TEMP 98
[2020-06-04] MEDS ORDERED: LIDOCAINE PATCH REMOVAL MC ONE (13:30)
== END 2020-06-04 08:15 | disposition home or self-care (01) ==
LOC: JER 23:20
DX: M54.5 Low back pain (principal); F10.10 Alcohol abuse, uncomplicated
CPT/HCPCS: 99283-25

== ENCOUNTER 2020-06-04 17:45 | Emergency (ER) | payer OTHER ==
[2020-06-04 19:17] VITALS: BP 155/79; PULSE 83; TEMP 98.2; BMI 39.4
== END 2020-06-05 05:30 | disposition home or self-care (01) ==
LOC: JER 17:45
DX: F10.129 Alcohol abuse with intoxication, unspecified (principal)
CPT/HCPCS: 99282-25

== ENCOUNTER 2020-06-06 14:16 | Emergency (ER) | payer OTHER ==
[2020-06-06 14:41] VITALS: BP 130/74; PULSE 82; TEMP 98; BMI 35.9
[2020-06-06] MEDS ORDERED: AZITHROMYCIN 250 MG TABLET PO ONE (18:43)
[2020-06-06] MEDS ORDERED: AZITHROMYCIN 250 MG TABLET ONE (18:58)
== END 2020-06-06 19:02 | disposition home or self-care (01) ==
LOC: JER 14:16
DX: M54.5 Low back pain (principal); R05 Cough; F10.10 Alcohol abuse, uncomplicated
CPT/HCPCS: 71046-TC-FY; 99284-25

== ENCOUNTER 2020-06-06 22:39 | Emergency (ER) | payer OTHER ==
[2020-06-06 22:48] VITALS: BMI 28.7
[2020-06-07 06:50] VITALS: BP 142/87; PULSE 92; TEMP 98.3
== END 2020-06-07 06:50 | disposition home or self-care (01) ==
LOC: JER 22:39
DX: Z59.0 Homelessness (principal)
CPT/HCPCS: 99281-25

== ENCOUNTER 2020-06-07 08:13 | Emergency (ER) | payer OTHER ==
[2020-06-07 08:45] VITALS: BP 153/78; PULSE 86; TEMP 98.3; BMI 32.3
[2020-06-07] MEDS ORDERED: METHOCARBAMOL 500 MG TABLET PO ONE (09:31)
[2020-06-07] MEDS ORDERED: METHOCARBAMOL 500 MG TABLET ONE (09:37)
[2020-06-07] MEDS ORDERED: chlordiazePOXIDE HCL 25 MG CAPSULE PO ONE (09:43)
[2020-06-07] MEDS ORDERED: chlordiazePOXIDE HCL 25 MG CAPSULE ONE (09:48)
[2020-06-08] MEDS ORDERED: AZITHROMYCIN 250 MG TABLET ONE (19:56)
== END 2020-06-07 13:30 | disposition left against medical advice (07) ==
LOC: JER 08:13
DX: M54.89 Other dorsalgia (principal); F10.10 Alcohol abuse, uncomplicated
CPT/HCPCS: 99283-25

== ENCOUNTER 2020-06-08 16:47 | Inpatient (IN) | payer OTHER ==
[2020-06-08] MEDS ORDERED: ACETAMINOPHEN 500 MG TABLET (FP) PO ONE (17:29)
[2020-06-08] MEDS ORDERED: AZITHROMYCIN 250 MG TABLET PO ONE (19:49)
[2020-06-09 07:57] LABS: BASO % 1.4 % (0-2.0); EOS % 6.6 % (0-4.5); HEMATOCRIT 29.4 % (35.4-49); HEMOGLOBIN 9.1 GM/dL (11.7-16.9); LYMPH % 29.8 % (8-40); MCH 23.5 pg (25.7-33.7); MCHC 30.8 g/dl (32.0-35.9); MEAN CELL VOLUME 76.3 fl (80-96); MEAN PLT VOLUME 6.9 fl (7.5-11.1); MONO % 5.9 % (3.8-10.2); NEUT % 56.3 % (42.8-82.8); PLATELET COUNT 352 K/MM3 (134-434); RBC 3.86 M/mm3 (4.00-5.60); RDW 20.9 % (11.9-15.9); WHITE BLOOD COUNT 5.7 K/mm3 (4.0-10.0)
[2020-06-09 08:12] LABS: CHLORIDE 111 mmol/L (98-107); SODIUM 145 mmol/L (136-145)
[2020-06-09 08:14] LABS: ALBUMIN 2.8 g/dl (3.4-5.0); ANION GAP 6 MMOL/L (8-16); CO2 28 mmol/L (21-32); GLUCOSE,RANDOM 85 mg/dL (74-106)
[2020-06-09 08:18] LABS: CREATININE 0.6 mg/dL (0.55-1.3); SGOT/AST 21 U/L (15-37); SGPT/ALT 15 U/L (13-61)
[2020-06-09 08:19] LABS: BILIRUBIN,TOTAL 0.2 mg/dL (0.2-1); TOT PROT 5.9 g/dl (6.4-8.2)
[2020-06-09 08:21] LABS: ALK PHOS 89 U/L (45-117)
[2020-06-09] MEDS ORDERED: AZITHROMYCIN IVPB 500 MG in DEXTROSE 5%-WATER - 250 ML IVPB ONE (09:41)
[2020-06-09] MEDS ORDERED: CEFTRIAXONE 1,000 MG in DEXTROSE 5%-WATER - 50 ML IVPB ONE (09:41)
[2020-06-09] MEDS ORDERED: AZITHROMYCIN IVPB 500 MG/250 ML BAG IVPB ONE (09:54)
[2020-06-09] MEDS ORDERED: CEFTRIAXONE 1 GM/50 ML BAG ONE (09:54)
[2020-06-09] MEDS ORDERED: POTASSIUM CHLORIDE TABS 20 MEQ TABLET.ER (FP) PO ONE ×2 (09:57→10:02)
[2020-06-09] MEDS ORDERED: FAMOTIDINE 20 MG/50 ML IVPB 20 MG/50 ML MG IVPB ONE ×2 (11:22→11:25)
[2020-06-09 12:00] LABS: ANISOCYTOSIS 1+; MACROCYTOSIS 1+; PLATELET ESTIMATE NORMAL
[2020-06-09] MEDS ORDERED: chlordiazePOXIDE HCL 25 MG CAPSULE PO PRN (14:33)
[2020-06-09 15:44] LABS: ERYTHROCYTE SEDIMENTATION RATE 12 mm/hr (0-20)
[2020-06-09] MEDS: chlordiazePOXIDE HCL 25 MG CAPSULE PO SCH ×2 (17:35→22:27)
[2020-06-09 18:15] VITALS: BMI 37.4
[2020-06-09 22:56] LABS: URINE APPEARANCE CLEAR; URINE BILIRUBIN NEGATIVE (NEGATIVE); URINE COLOR YELLOW; URINE GLUCOSE (UA) NEGATIVE (NEGATIVE); URINE KETONE NEGATIVE (NEGATIVE); URINE LEUK ESTERASE NEGATIVE (NEGATIVE); URINE NITRITE NEGATIVE (NEGATIVE); URINE PROTEIN NEGATIVE (NEGATIVE); URINE UROBILINOGEN 0.2 mg/dL (0.2-1.0)
[2020-06-10] MEDS: chlordiazePOXIDE HCL 25 MG CAPSULE PO SCH ×4 (04:41→22:09)
[2020-06-10] MEDS ORDERED: DEXTROSE 5%-WATER - 50 ML IVPB ONE (09:30)
[2020-06-10] MEDS ORDERED: cefTRIAXone SODIUM 1 GM VIAL ONE (09:30)
[2020-06-10] MEDS: FAMOTIDINE 20 MG TABLET PO SCH (10:42)
[2020-06-10] MEDS: FOLIC ACID 1 MG TABLET (FP) PO SCH (10:42)
[2020-06-10] MEDS: amLODIPine BESYLATE 5 MG TABLET (FP) PO SCH (10:42)
[2020-06-10] MEDS: CEFTRIAXONE 1 GM in DEXTROSE 5%-WATER - 50 ML IVPB SCH (10:42)
[2020-06-10] MEDS: MULTIVITAMINS (DAILY MVI) TABLET (FP) PO SCH (10:42)
[2020-06-10] MEDS: ENOXAPARIN NA (PORCINE) 40 MG/0.4 ML DISP.SYRIN SQ SCH (10:42)
[2020-06-10] MEDS: THIAMINE HCL 100 MG TABLET (FP) PO SCH (10:42)
[2020-06-10] MEDS ORDERED: POTASSIUM CHLORIDE TABS 20 MEQ TABLET.ER (FP) PO ONE (11:22)
[2020-06-10] MEDS: DOXYCYCLINE HYCLATE 100 MG CAPSULE PO SCH (18:02)
[2020-06-10] MEDS: FERROUS SO4 325 MG TABLET (FP) PO SCH (18:02)
[2020-06-11] MEDS: chlordiazePOXIDE HCL 25 MG CAPSULE PO SCH ×4 (05:26→22:28)
[2020-06-11 07:31] LABS: BLOOD UREA NITROGEN 7.7 mg/dL (7-18); CALCIUM 8.3 mg/dL (8.5-10.1); MAGNESIUM 1.3 mg/dL (1.8-2.4)
[2020-06-11 07:34] LABS: CREATININE 0.6 mg/dL (0.55-1.3)
[2020-06-11 07:35] LABS: PHOSPHOROUS 3.5 mg/dL (2.5-4.9)
[2020-06-11] MEDS ORDERED: cefTRIAXone SODIUM 1 GM VIAL ONE (08:55)
[2020-06-11] MEDS ORDERED: DEXTROSE 5%-WATER - 50 ML IVPB ONE (08:55)
[2020-06-11] MEDS ORDERED: POTASSIUM CHLORIDE TABS 20 MEQ TABLET.ER (FP) PO ONE ×2 (09:00→10:00)
[2020-06-11] MEDS: ENOXAPARIN NA (PORCINE) 40 MG/0.4 ML DISP.SYRIN SQ SCH (09:40)
[2020-06-11] MEDS: DOXYCYCLINE HYCLATE 100 MG CAPSULE PO SCH ×2 (09:41→17:07)
[2020-06-11] MEDS: FERROUS SO4 325 MG TABLET (FP) PO SCH ×2 (09:43→17:08)
[2020-06-11] MEDS: DOCUSATE SODIUM 100 MG CAPSULE (FP) PO SCH (09:43)
[2020-06-11] MEDS: THIAMINE HCL 100 MG TABLET (FP) PO SCH (09:43)
[2020-06-11] MEDS: CEFTRIAXONE 1 GM in DEXTROSE 5%-WATER - 50 ML IVPB SCH ×2 (09:43→10:26)
[2020-06-11] MEDS: amLODIPine BESYLATE 5 MG TABLET (FP) PO SCH (09:43)
[2020-06-11] MEDS: MULTIVITAMINS (DAILY MVI) TABLET (FP) PO SCH (09:43)
[2020-06-11] MEDS: FOLIC ACID 1 MG TABLET (FP) PO SCH (09:43)
[2020-06-11] MEDS: FAMOTIDINE 20 MG TABLET PO SCH (09:43)
[2020-06-12] MEDS ORDERED: chlordiazePOXIDE HCL 10 MG CAPSULE PO PRN
[2020-06-12] MEDS: chlordiazePOXIDE HCL 10 MG CAPSULE PO SCH ×2 (05:00→13:50)
[2020-06-12 07:44] LABS: WHITE BLOOD COUNT 8.7 K/mm3 (4.0-10.0)
[2020-06-12 07:45] LABS: HEMATOCRIT 30.6 % (35.4-49); HEMOGLOBIN 9.5 GM/dL (11.7-16.9); MCH 23.4 pg (25.7-33.7); MCHC 31.2 g/dl (32.0-35.9); MEAN PLT VOLUME 7.6 fl (7.5-11.1); PLATELET COUNT 338 K/MM3 (134-434); RBC 4.08 M/mm3 (4.00-5.60); RDW 20.6 % (11.9-15.9)
[2020-06-12 08:15] LABS: CALCIUM 8.6 mg/dL (8.5-10.1)
[2020-06-12 08:16] LABS: BLOOD UREA NITROGEN 9.9 mg/dL (7-18)
[2020-06-12 08:19] LABS: CREATININE 0.5 mg/dL (0.55-1.3)
[2020-06-12] MEDS ORDERED: cefTRIAXone SODIUM 1 GM VIAL ONE (08:58)
[2020-06-12] MEDS ORDERED: DEXTROSE 5%-WATER - 50 ML IVPB ONE (08:58)
[2020-06-12] MEDS: CEFTRIAXONE 1 GM in DEXTROSE 5%-WATER - 50 ML IVPB SCH (10:02)
[2020-06-12] MEDS: FAMOTIDINE 20 MG TABLET PO SCH (10:03)
[2020-06-12] MEDS: DOXYCYCLINE HYCLATE 100 MG CAPSULE PO SCH (10:03)
[2020-06-12] MEDS: amLODIPine BESYLATE 5 MG TABLET (FP) PO SCH (10:03)
[2020-06-12] MEDS: DOCUSATE SODIUM 100 MG CAPSULE (FP) PO SCH (10:04)
[2020-06-12] MEDS: FERROUS SO4 325 MG TABLET (FP) PO SCH (10:04)
[2020-06-12] MEDS: ENOXAPARIN NA (PORCINE) 40 MG/0.4 ML DISP.SYRIN SQ SCH (10:04)
[2020-06-12 15:17] VITALS: BP 160/83; PULSE 85; TEMP 98.3
[2020-06-13] MEDS ORDERED: chlordiazePOXIDE HCL 10 MG CAPSULE PO SCH (05:00)
[2020-06-14] MEDS ORDERED: chlordiazePOXIDE HCL 10 MG CAPSULE PO ONE (05:00)
== END 2020-06-12 18:37 | disposition left against medical advice (07) | DRG 139 ==
LOC: JER 16:47 → JERBED 06-09 11:35 → J7W 06-09 13:28
PROVIDERS: ADMIT Internal Medicine; ATTEND Internal Medicine
PROC: HZ2ZZZZ Detoxification Services for Substance Abuse Treatment (ICD-10-PCS; principal; 2020-06-08)
DX: J18.9 Pneumonia, unspecified organism (principal); M54.5 Low back pain; E78.5 Hyperlipidemia, unspecified; F10.130 Alcohol abuse with withdrawal, uncomplicated; F10.120 Alcohol abuse with intoxication, uncomplicated; I10 Essential (primary) hypertension; D50.9 Iron deficiency anemia, unspecified; C45.9 Mesothelioma, unspecified; I71.2 Thoracic aortic aneurysm, without rupture; K76.9 Liver disease, unspecified
CPT/HCPCS: 36415; 71045-TC-FY; 80048; 80053; 81003; 82728; 82962; 83735; 84100; 84484; 85025; 85027; 85379; 85651; 86140; 87040; 87899; 99291; C9803; U0003

== ENCOUNTER 2020-06-13 15:57 | Emergency (ER) | payer OTHER ==
[2020-06-13 16:19] VITALS: TEMP 98.2; BMI 39.4
[2020-06-13] MEDS ORDERED: chlordiazePOXIDE HCL 25 MG CAPSULE PO ONE (17:57)
[2020-06-13] MEDS ORDERED: ACETAMINOPHEN 325 MG TABLET (FP) PO ONE (17:57)
[2020-06-13] MEDS ORDERED: ACETAMINOPHEN 325 MG TABLET (FP) ONE (18:20)
[2020-06-13] MEDS ORDERED: chlordiazePOXIDE HCL 25 MG CAPSULE ONE (18:21)
[2020-06-14 05:59] VITALS: BP 152/78; PULSE 88
== END 2020-06-14 05:59 | disposition home or self-care (01) ==
LOC: JER 15:57
DX: M54.5 Low back pain (principal); Z59.0 Homelessness
CPT/HCPCS: 99283-25

== ENCOUNTER 2020-06-16 00:26 | Emergency (ER) | payer OTHER ==
[2020-06-16 03:42] VITALS: BMI 33.0
[2020-06-16] MEDS ORDERED: IBUPROFEN 600 MG TABLET (FP) PO ONE ×2 (10:11→11:01)
[2020-06-16 11:09] VITALS: TEMP 98.4
[2020-06-16 11:48] VITALS: BP 112/55; PULSE 103
== END 2020-06-16 11:48 | disposition home or self-care (01) ==
LOC: JER 00:26
DX: F10.920 Alcohol use, unspecified with intoxication, uncomplicated (principal)
CPT/HCPCS: 99284-25

== ENCOUNTER 2020-06-19 11:37 | Emergency (ER) | payer OTHER | END 2020-06-19 13:52 | disposition home or self-care (01) | LOC: JER 11:37 | DX: F10.10 Alcohol abuse, uncomplicated (principal) | CPT/HCPCS: 99281-25 ==

== ENCOUNTER 2020-06-22 14:15 | Emergency (ER) | payer OTHER | END 2020-06-22 17:27 | disposition home or self-care (01) | LOC: JER 14:15 | DX: F10.129 Alcohol abuse with intoxication, unspecified (principal) | CPT/HCPCS: 99281-25 ==

== ENCOUNTER 2020-07-01 20:20 | Emergency (ER) | payer OTHER ==
[2020-07-01 20:30] VITALS: BP 110/57; PULSE 88; TEMP 98; BMI 32.3
== END 2020-07-02 06:26 | disposition home or self-care (01) ==
LOC: JER 20:20
DX: M54.5 Low back pain (principal); Z59.0 Homelessness
CPT/HCPCS: 82962; 99283-25

== ENCOUNTER 2020-07-03 14:14 | Emergency (ER) | payer OTHER ==
[2020-07-03 14:32] VITALS: TEMP 98.1; BMI 40.8
[2020-07-03 19:01] VITALS: BP 110/52; PULSE 80
== END 2020-07-03 19:01 | disposition home or self-care (01) ==
LOC: JER 14:14
DX: F10.129 Alcohol abuse with intoxication, unspecified (principal)
CPT/HCPCS: 99281-25

== ENCOUNTER 2020-07-06 16:34 | Inpatient (IN) | payer OTHER ==
[2020-07-06 17:13] VITALS: TEMP 98.1; BMI 30.4
[2020-07-06] MEDS ORDERED: LIDOCAINE 5% TOPICAL PATCH TP ONE (19:47)
[2020-07-06] MEDS ORDERED: LIDOCAINE 5% TOPICAL PATCH ONE (19:51)
[2020-07-06] MEDS ORDERED: LIDOCAINE PATCH REMOVAL MC SCH (22:00)
[2020-07-06] MEDS ORDERED: ACETAMINOPHEN 325 MG TABLET (FP) PO ONE (22:11)
[2020-07-06] MEDS ORDERED: ACETAMINOPHEN INJECTION 100 ML IVPB ONE (22:19)
[2020-07-06] MEDS ORDERED: ACETAMINOPHEN 1000 MG/100 ML VIAL (NON FORMULARY) IVPB ONE (22:19)
[2020-07-06] MEDS ORDERED: KETOROLAC TROMETHAMINE 15 MG/ML VIAL IVPUSH ONE (22:19)
[2020-07-06 22:32] LABS: BASO % 1.7 % (0-2.0); EOS % 4.6 % (0-4.5); HEMATOCRIT 28.7 % (35.4-49); HEMOGLOBIN 8.8 GM/dL (11.7-16.9); LYMPH % 33.5 % (8-40); MCH 22.8 pg (25.7-33.7); MCHC 30.7 g/dl (32.0-35.9); MEAN CELL VOLUME 74.2 fl (80-96); MEAN PLT VOLUME 7.4 fl (7.5-11.1); MONO % 6.7 % (3.8-10.2); NEUT % 53.5 % (42.8-82.8); PLATELET COUNT 375 K/MM3 (134-434); RBC 3.87 M/mm3 (4.00-5.60); RDW 19.8 % (11.9-15.9); WHITE BLOOD COUNT 5.4 K/mm3 (4.0-10.0)
[2020-07-06 22:53] LABS: POTASSIUM 3.9 mmol/L (3.5-5.1)
[2020-07-06 22:56] LABS: ALBUMIN 2.9 g/dl (3.4-5.0); BLOOD UREA NITROGEN 7.9 mg/dL (7-18); CALCIUM 8.5 mg/dL (8.5-10.1); MAGNESIUM 1.6 mg/dL (1.8-2.4)
[2020-07-06 22:59] LABS: CREATININE 0.7 mg/dL (0.55-1.3); PHOSPHOROUS 3.6 mg/dL (2.5-4.9)
[2020-07-06 23:01] LABS: BILIRUBIN,TOTAL 0.2 mg/dL (0.2-1); TOT PROT 6.3 g/dl (6.4-8.2)
[2020-07-06] MEDS ORDERED: KETOROLAC TROMETHAMINE 15 MG/ML VIAL ONE (23:31)
[2020-07-06] MEDS ORDERED: MAGNESIUM SULF 50% (8.12 MEQ/2 ML-1 GM VIAL) IVPB ONE (23:53)
[2020-07-06] MEDS ORDERED: MAGNESIUM SULFATE IN WATER 2 GM/50 ML IVPB IVPB ONE (23:56)
[2020-07-07] MEDS ORDERED: METHOCARBAMOL 500 MG TABLET ONE (06:26)
[2020-07-07] MEDS ORDERED: METHOCARBAMOL 500 MG TABLET PO ONE (06:26)
[2020-07-07 06:38] VITALS: BP 128/69; PULSE 84
[2020-07-07] MEDS ORDERED: ALBUTEROL SO4 2.5/IPRATROPIUM 0.5 INH SOL 3 ML VIAL.NEB. NEB PRN (11:20)
[2020-07-07] MEDS ORDERED: chlordiazePOXIDE HCL 25 MG CAPSULE PO PRN (11:32)
[2020-07-07] MEDS ORDERED: THIAMINE HCL 100 MG TABLET (FP) PO SCH (11:45)
[2020-07-07] MEDS ORDERED: oxyCODONE HCL 5 MG TABLET PO PRN (13:00)
[2020-07-07] MEDS ORDERED: ACETAMINOPHEN 325 MG TABLET (FP) PO PRN (13:00)
[2020-07-07] MEDS ORDERED: METHOCARBAMOL 500 MG TABLET PO SCH (14:00)
== END 2020-07-07 12:20 | disposition left against medical advice (07) | DRG 347 ==
LOC: JER 16:34 → JERBED 07-07 11:10
PROVIDERS: ADMIT Internal Medicine; ATTEND Internal Medicine
DX: M54.5 Low back pain (principal); Z59.0 Homelessness; I10 Essential (primary) hypertension; E78.5 Hyperlipidemia, unspecified; K21.9 Gastro-esophageal reflux disease without esophagitis; F10.129 Alcohol abuse with intoxication, unspecified; C45.9 Mesothelioma, unspecified
CPT/HCPCS: 36415; 72131-TC; 80053; 80307; 83690; 83735; 84100; 85025; 93005; 93010; 99285-25; J0131

== ENCOUNTER 2020-07-07 19:37 | Inpatient (IN) | payer OTHER ==
[2020-07-07 19:46] VITALS: BMI 45.6
[2020-07-08 04:54] LABS: HEMATOCRIT 28.2 % (35.4-49); HEMOGLOBIN 8.7 GM/dL (11.7-16.9); MCHC 30.8 g/dl (32.0-35.9); MEAN CELL VOLUME 74.6 fl (80-96); MEAN PLT VOLUME 7.2 fl (7.5-11.1); NEUT % 51.6 % (42.8-82.8); PLATELET COUNT 346 K/MM3 (134-434); RBC 3.78 M/mm3 (4.00-5.60); WHITE BLOOD COUNT 3.8 K/mm3 (4.0-10.0)
[2020-07-08 04:55] LABS: BASO % 1.2 % (0-2.0); EOS % 5.8 % (0-4.5); LYMPH % 32.9 % (8-40); MONO % 8.5 % (3.8-10.2)
[2020-07-08 05:34] LABS: POTASSIUM 3.4 mmol/L (3.5-5.1)
[2020-07-08 05:51] LABS: ALBUMIN 3.1 g/dl (3.4-5.0); BILIRUBIN,TOTAL 0.4 mg/dL (0.2-1); BLOOD UREA NITROGEN 8.7 mg/dL (7-18); CALCIUM 8.2 mg/dL (8.5-10.1); CREATININE 0.5 mg/dL (0.55-1.3); MAGNESIUM 1.4 mg/dL (1.8-2.4); PHOSPHOROUS 3.5 mg/dL (2.5-4.9); TOT PROT 6.4 g/dl (6.4-8.2)
[2020-07-08] MEDS ORDERED: oxyCODONE HCL 5 MG TABLET PO PRN (06:14)
[2020-07-08] MEDS ORDERED: MAGNESIUM CL 64 MG TABLET.SA PO ONE (07:01)
[2020-07-08] MEDS: POTASSIUM CHLORIDE TABS 20 MEQ TABLET.ER (FP) PO SCH ×2 (07:11→14:00)
[2020-07-08] MEDS ORDERED: LORazepam 1 MG TABLET PO PRN (07:12)
[2020-07-08 07:35] VITALS: TEMP 97.4
[2020-07-08] MEDS ORDERED: IRON SUCROSE INJECTION 200 MG in SODIUM CHLORIDE 90 ML IVPB ONE (09:00)
[2020-07-08] MEDS ORDERED: LORazepam 2 MG TABLET PO ONE (09:00)
[2020-07-08] MEDS ORDERED: MAGNESIUM 1GM/D5W - 1 GM/100 ML IVPB IVPB ONE ×2 (09:00→09:04)
[2020-07-08] MEDS ORDERED: THIAMINE HCL 100 MG TABLET (FP) ONE (09:03)
[2020-07-08] MEDS ORDERED: DOCUSATE SODIUM 100 MG CAPSULE (FP) PO ONE (09:03)
[2020-07-08] MEDS ORDERED: LORazepam 1 MG TABLET ONE (09:03)
[2020-07-08] MEDS ORDERED: FOLIC ACID 1 MG TABLET (FP) ONE (09:04)
[2020-07-08] MEDS: DOCUSATE SODIUM 100 MG CAPSULE (FP) PO SCH ×2 (09:44→22:09)
[2020-07-08] MEDS: THIAMINE HCL 100 MG TABLET (FP) PO SCH (09:45)
[2020-07-08] MEDS: FOLIC ACID 1 MG TABLET (FP) PO SCH (09:45)
[2020-07-08] MEDS ORDERED: MORPHINE SULFATE 2 MG/ML VIAL ONE ×3 (11:05→20:38)
[2020-07-08] MEDS: morphine CARPU-JECT 2 MG/1 ML DISP.SYRIN IVPUSH PRN ×3 (11:08→20:37)
[2020-07-08 16:33] LABS: URINE APPEARANCE CLEAR; URINE BILIRUBIN NEGATIVE (NEGATIVE); URINE COLOR YELLOW; URINE GLUCOSE (UA) NEGATIVE (NEGATIVE); URINE KETONE NEGATIVE (NEGATIVE); URINE LEUK ESTERASE NEGATIVE (NEGATIVE); URINE NITRITE NEGATIVE (NEGATIVE); URINE PROTEIN NEGATIVE (NEGATIVE)
[2020-07-09] MEDS ORDERED: oxyCODONE HCL 5 MG TABLET ONE (04:00)
[2020-07-09] MEDS ORDERED: MORPHINE SULFATE 2 MG/ML VIAL IVPUSH PRN (06:08)
[2020-07-09 06:48] LABS: HEMATOCRIT 31.3 % (35.4-49); HEMOGLOBIN 9.8 GM/dL (11.7-16.9); MCH 22.7 pg (25.7-33.7); MCHC 31.2 g/dl (32.0-35.9); MEAN CELL VOLUME 72.7 fl (80-96); MEAN PLT VOLUME 7.3 fl (7.5-11.1); PLATELET COUNT 327 K/MM3 (134-434); RBC 4.31 M/mm3 (4.00-5.60); RDW 19.8 % (11.9-15.9); WHITE BLOOD COUNT 6.6 K/mm3 (4.0-10.0)
[2020-07-09 06:50] LABS: INR 1.05 (0.83-1.09); PROTHROMBIN TIME (PATIENT) 12.9 SEC (9.7-13.0)
[2020-07-09 06:54] LABS: POTASSIUM 3.3 mmol/L (3.5-5.1)
[2020-07-09 06:56] LABS: CALCIUM 8.3 mg/dL (8.5-10.1)
[2020-07-09 06:57] LABS: ALBUMIN 3.1 g/dl (3.4-5.0); BLOOD UREA NITROGEN 5.8 mg/dL (7-18); MAGNESIUM 1.6 mg/dL (1.8-2.4)
[2020-07-09 07:00] LABS: CREATININE 0.5 mg/dL (0.55-1.3)
[2020-07-09 07:01] LABS: BILIRUBIN,TOTAL 0.7 mg/dL (0.2-1); TOT PROT 6.2 g/dl (6.4-8.2)
[2020-07-09] MEDS ORDERED: DOCUSATE SODIUM 100 MG CAPSULE (FP) PO ONE (07:56)
[2020-07-09] MEDS ORDERED: THIAMINE HCL 100 MG TABLET (FP) ONE (07:56)
[2020-07-09] MEDS ORDERED: FOLIC ACID 1 MG TABLET (FP) ONE (07:57)
[2020-07-09] MEDS ORDERED: POTASSIUM CHLORIDE TABS 20 MEQ TABLET.ER (FP) PO ONE ×2 (10:56→11:09)
[2020-07-09] MEDS ORDERED: MAGNESIUM SULF 50% (8.12 MEQ/2 ML-1 GM VIAL) IVPB ONE (10:56)
[2020-07-09] MEDS: DOCUSATE SODIUM 100 MG CAPSULE (FP) PO SCH (11:00)
[2020-07-09] MEDS: THIAMINE HCL 100 MG TABLET (FP) PO SCH (11:00)
[2020-07-09] MEDS: FOLIC ACID 1 MG TABLET (FP) PO SCH (11:00)
[2020-07-09] MEDS ORDERED: MAGNESIUM 1GM/D5W - 1 GM/100 ML IVPB IVPB ONE (11:10)
[2020-07-09] MEDS ORDERED: MORPHINE SULFATE 2 MG/ML VIAL ONE (11:10)
[2020-07-09 11:47] VITALS: BP 132/70; PULSE 87
== END 2020-07-09 15:00 | disposition left against medical advice (07) | DRG 347 ==
LOC: JER 19:37 → JERBED 07-08 05:02
PROVIDERS: ADMIT Hospitalist; ATTEND Internal Medicine
DX: S22.071A Stable burst fracture of T9-T10 vertebra, initial encounter for closed fracture (principal); D50.9 Iron deficiency anemia, unspecified; E87.6 Hypokalemia; M54.9 Dorsalgia, unspecified; E83.42 Hypomagnesemia; Z68.42 Body mass index [BMI] 45.0-49.9, adult; I10 Essential (primary) hypertension; F10.129 Alcohol abuse with intoxication, unspecified; Z59.0 Homelessness; E66.9 Obesity, unspecified; W19.XXXA Unspecified fall, initial encounter; Y93.9 Activity, unspecified; Y92.89 Other specified places as the place of occurrence of the external cause; Y99.9 Unspecified external cause status
CPT/HCPCS: 36415; 71045-TC-FY; 72128-TC; 72131-TC; 80053; 81003; 82728; 83540; 83550; 83735; 84100; 85025; 85027; 85610; 85730; 93005; 93010; 99285-25; C9803; J1756; U0003

== ENCOUNTER 2020-07-10 16:47 | Emergency (ER) | payer OTHER ==
[2020-07-10 16:55] VITALS: BMI 30.1
[2020-07-11 04:23] VITALS: BP 121/77; PULSE 76; TEMP 97.1
[2020-07-11] MEDS ORDERED: ACETAMINOPHEN 325 MG TABLET (FP) PO ONE (05:16)
[2020-07-11] MEDS ORDERED: chlordiazePOXIDE HCL 25 MG CAPSULE PO ONE (05:16)
[2020-07-11] MEDS ORDERED: ACETAMINOPHEN 325 MG TABLET (FP) ONE (05:52)
[2020-07-11] MEDS ORDERED: chlordiazePOXIDE HCL 25 MG CAPSULE ONE (05:53)
== END 2020-07-11 06:30 | disposition left against medical advice (07) ==
LOC: JER 16:47
DX: F10.20 Alcohol dependence, uncomplicated (principal)
CPT/HCPCS: 99282-25

== ENCOUNTER 2020-07-11 08:11 | Emergency (ER) | payer OTHER ==
[2020-07-11 08:25] VITALS: BP 117/82; PULSE 64; TEMP 98.3; BMI 35.9
== END 2020-07-11 12:26 | disposition left against medical advice (07) ==
LOC: JER 08:11
DX: M25.562 Pain in left knee (principal); M25.512 Pain in left shoulder; W19.XXXA Unspecified fall, initial encounter
CPT/HCPCS: 73030-TC-LT-FY; 73560-TC-LT-FY; 99284-25

== ENCOUNTER 2020-07-11 16:58 | Inpatient (IN) | payer OTHER ==
[2020-07-11 17:24] VITALS: BMI 33.7
[2020-07-11 22:55] LABS: BASO % 1.3 % (0-2.0); EOS % 2.8 % (0-4.5); HEMATOCRIT 32.3 % (35.4-49); HEMOGLOBIN 9.8 GM/dL (11.7-16.9); LYMPH % 20.5 % (8-40); MCH 23.1 pg (25.7-33.7); MCHC 30.4 g/dl (32.0-35.9); MEAN CELL VOLUME 75.9 fl (80-96); MEAN PLT VOLUME 7.7 fl (7.5-11.1); MONO % 10.6 % (3.8-10.2); NEUT % 64.8 % (42.8-82.8); PLATELET COUNT 391 K/MM3 (134-434); RBC 4.26 M/mm3 (4.00-5.60); WHITE BLOOD COUNT 7.6 K/mm3 (4.0-10.0)
[2020-07-11 23:03] LABS: INR 1.04 (0.83-1.09); PROTHROMBIN TIME (PATIENT) 12.6 SEC (9.7-13.0)
[2020-07-11 23:18] LABS: POTASSIUM 3.8 mmol/L (3.5-5.1)
[2020-07-11 23:20] LABS: ALBUMIN 3.5 g/dl (3.4-5.0); BLOOD UREA NITROGEN 8.3 mg/dL (7-18); CALCIUM 8.9 mg/dL (8.5-10.1)
[2020-07-11 23:24] LABS: CREATININE 0.7 mg/dL (0.55-1.3)
[2020-07-11 23:25] LABS: BILIRUBIN,TOTAL 0.3 mg/dL (0.2-1); TOT PROT 7.1 g/dl (6.4-8.2)
[2020-07-12] MEDS ORDERED: LORazepam 2 MG TABLET PO PRN (01:16)
[2020-07-12] MEDS ORDERED: LORazepam 1 MG TABLET PO PRN (01:23)
[2020-07-12] MEDS ORDERED: LACTATED RINGERS SOLUTION 1000 ML INFUS.BAG IV ONE (01:44)
[2020-07-12] MEDS: oxyCODONE HCL 5 MG TABLET PO PRN (02:54)
[2020-07-12] MEDS: DOCUSATE SODIUM 100 MG CAPSULE (FP) PO SCH ×2 (11:51→21:15)
[2020-07-12] MEDS: THIAMINE HCL 200 MG/2 ML VIAL IM SCH (11:51)
[2020-07-12] MEDS: FOLIC ACID 1 MG TABLET (FP) PO SCH (11:51)
[2020-07-12] MEDS: FERROUS SO4 325 MG TABLET (FP) PO SCH (11:51)
[2020-07-13] MEDS: oxyCODONE HCL 5 MG TABLET PO PRN ×3 (02:18→22:36)
[2020-07-13] MEDS: FOLIC ACID 1 MG TABLET (FP) PO SCH (09:46)
[2020-07-13] MEDS: DOCUSATE SODIUM 100 MG CAPSULE (FP) PO SCH ×2 (09:46→22:36)
[2020-07-13] MEDS: FERROUS SO4 325 MG TABLET (FP) PO SCH (09:46)
[2020-07-13] MEDS: THIAMINE HCL 200 MG/2 ML VIAL IM SCH (09:46)
[2020-07-13] MEDS ORDERED: LIDOCAINE 5% TOPICAL PATCH TP PRN (16:24)
[2020-07-13] MEDS: LIDOCAINE PATCH REMOVAL MC SCH (22:37)
[2020-07-14] MEDS ORDERED: LISINOPRIL 10 MG TABLET PO ONE (01:15)
[2020-07-14 02:52] LABS: URINE APPEARANCE CLEAR; URINE BILIRUBIN NEGATIVE (NEGATIVE); URINE COLOR YELLOW; URINE GLUCOSE (UA) NEGATIVE (NEGATIVE); URINE KETONE NEGATIVE (NEGATIVE); URINE LEUK ESTERASE NEGATIVE (NEGATIVE); URINE NITRITE NEGATIVE (NEGATIVE); URINE PROTEIN NEGATIVE (NEGATIVE)
[2020-07-14] MEDS: oxyCODONE HCL 5 MG TABLET PO PRN ×3 (06:52→23:53)
[2020-07-14] MEDS: THIAMINE HCL 200 MG/2 ML VIAL IM SCH (09:59)
[2020-07-14] MEDS: FERROUS SO4 325 MG TABLET (FP) PO SCH (09:59)
[2020-07-14] MEDS: FOLIC ACID 1 MG TABLET (FP) PO SCH (09:59)
[2020-07-14] MEDS: DOCUSATE SODIUM 100 MG CAPSULE (FP) PO SCH ×2 (09:59→21:15)
[2020-07-14] MEDS: amLODIPine BESYLATE 5 MG TABLET (FP) PO SCH (14:26)
[2020-07-14] MEDS ORDERED: NALOXONE HCL 0.4 MG/ML VIAL ONE (17:41)
[2020-07-14] MEDS: LIDOCAINE PATCH REMOVAL MC SCH (21:15)
[2020-07-15] MEDS: amLODIPine BESYLATE 5 MG TABLET (FP) PO SCH (09:28)
[2020-07-15] MEDS: FERROUS SO4 325 MG TABLET (FP) PO SCH (09:28)
[2020-07-15] MEDS: FOLIC ACID 1 MG TABLET (FP) PO SCH (09:28)
[2020-07-15] MEDS: DOCUSATE SODIUM 100 MG CAPSULE (FP) PO SCH ×2 (09:28→21:37)
[2020-07-15] MEDS: THIAMINE HCL 100 MG TABLET (FP) PO SCH (09:29)
[2020-07-15] MEDS: MULTIVITAMINS (DAILY MVI) TABLET (FP) PO SCH (09:29)
[2020-07-15] MEDS: THIAMINE HCL 200 MG/2 ML VIAL IM SCH (09:29)
[2020-07-15] MEDS: oxyCODONE HCL 5 MG TABLET PO PRN (14:13)
[2020-07-15] MEDS: ACETAMINOPHEN 325 MG TABLET (FP) PO PRN (14:13)
[2020-07-15] MEDS: LIDOCAINE PATCH REMOVAL MC SCH (21:37)
[2020-07-15] MEDS: ATORVASTATIN CA 40 MG TABLET (FP) PO SCH (21:37)
[2020-07-16] MEDS: oxyCODONE HCL 5 MG TABLET PO PRN (06:01)
[2020-07-16] MEDS: ACETAMINOPHEN 325 MG TABLET (FP) PO PRN (06:02)
[2020-07-16] MEDS: FOLIC ACID 1 MG TABLET (FP) PO SCH (11:24)
[2020-07-16] MEDS: FERROUS SO4 325 MG TABLET (FP) PO SCH (11:24)
[2020-07-16] MEDS: THIAMINE HCL 100 MG TABLET (FP) PO SCH (11:24)
[2020-07-16] MEDS: MULTIVITAMINS (DAILY MVI) TABLET (FP) PO SCH (11:24)
[2020-07-16] MEDS: DOCUSATE SODIUM 100 MG CAPSULE (FP) PO SCH ×3 (11:24→21:40)
[2020-07-16] MEDS: amLODIPine BESYLATE 5 MG TABLET (FP) PO SCH (11:24)
[2020-07-16] MEDS: LIDOCAINE PATCH REMOVAL MC SCH (21:40)
[2020-07-16] MEDS: ATORVASTATIN CA 40 MG TABLET (FP) PO SCH (21:40)
[2020-07-17] MEDS: DOCUSATE SODIUM 100 MG CAPSULE (FP) PO SCH ×2 (10:23→22:18)
[2020-07-17] MEDS: FERROUS SO4 325 MG TABLET (FP) PO SCH (10:23)
[2020-07-17] MEDS: amLODIPine BESYLATE 5 MG TABLET (FP) PO SCH (10:24)
[2020-07-17] MEDS: THIAMINE HCL 100 MG TABLET (FP) PO SCH (10:24)
[2020-07-17] MEDS: FOLIC ACID 1 MG TABLET (FP) PO SCH (10:24)
[2020-07-17] MEDS: MULTIVITAMINS (DAILY MVI) TABLET (FP) PO SCH (10:24)
[2020-07-17 10:25] LABS: POTASSIUM 3.9 mmol/L (3.5-5.1)
[2020-07-17 10:25] LABS: HEMATOCRIT 35.5 % (35.4-49); HEMOGLOBIN 10.8 GM/dL (11.7-16.9); MCH 23.5 pg (25.7-33.7); MCHC 30.4 g/dl (32.0-35.9); MEAN CELL VOLUME 77.2 fl (80-96); PLATELET COUNT 325 K/MM3 (134-434); RDW 22.6 % (11.9-15.9); WHITE BLOOD COUNT 8.7 K/mm3 (4.0-10.0)
[2020-07-17 10:31] LABS: BLOOD UREA NITROGEN 9.2 mg/dL (7-18); CALCIUM 9.2 mg/dL (8.5-10.1); MAGNESIUM 1.8 mg/dL (1.8-2.4)
[2020-07-17 10:34] LABS: CREATININE 0.5 mg/dL (0.55-1.3); PHOSPHOROUS 3.6 mg/dL (2.5-4.9)
[2020-07-17] MEDS: LIDOCAINE PATCH REMOVAL MC SCH (22:18)
[2020-07-17] MEDS: ATORVASTATIN CA 40 MG TABLET (FP) PO SCH (22:18)
[2020-07-18] MEDS: DOCUSATE SODIUM 100 MG CAPSULE (FP) PO SCH ×2 (11:03→21:54)
[2020-07-18] MEDS: amLODIPine BESYLATE 5 MG TABLET (FP) PO SCH (11:04)
[2020-07-18] MEDS: FERROUS SO4 325 MG TABLET (FP) PO SCH (11:04)
[2020-07-18] MEDS: MULTIVITAMINS (DAILY MVI) TABLET (FP) PO SCH (11:04)
[2020-07-18] MEDS: THIAMINE HCL 100 MG TABLET (FP) PO SCH (11:04)
[2020-07-18] MEDS: FOLIC ACID 1 MG TABLET (FP) PO SCH (11:04)
[2020-07-18] MEDS: ATORVASTATIN CA 40 MG TABLET (FP) PO SCH (21:53)
[2020-07-18] MEDS: LIDOCAINE PATCH REMOVAL MC SCH (21:54)
[2020-07-19] MEDS ORDERED: IBUPROFEN 600 MG TABLET (FP) PO ONE (02:41)
[2020-07-19 06:10] VITALS: BP 148/92; PULSE 68; TEMP 98.8
[2020-07-19 07:18] LABS: HEMATOCRIT 32.9 % (35.4-49); HEMOGLOBIN 10.2 GM/dL (11.7-16.9); MCH 23.4 pg (25.7-33.7); MEAN CELL VOLUME 75.6 fl (80-96); MEAN PLT VOLUME 7.8 fl (7.5-11.1); PLATELET COUNT 377 K/MM3 (134-434); RBC 4.35 M/mm3 (4.00-5.60); RDW 22.2 % (11.9-15.9); WHITE BLOOD COUNT 7.1 K/mm3 (4.0-10.0)
[2020-07-19 07:25] LABS: BLOOD UREA NITROGEN 12.4 mg/dL (7-18); CREATININE 0.6 mg/dL (0.55-1.3); POTASSIUM 3.7 mmol/L (3.5-5.1)
[2020-07-19 07:26] LABS: CALCIUM 9.1 mg/dL (8.5-10.1); MAGNESIUM 1.6 mg/dL (1.8-2.4)
[2020-07-19] MEDS ORDERED: MAGNESIUM 2GM/50ML STERILE WATER IVPB IVPB ONE (08:00)
[2020-07-19] MEDS ORDERED: MAGNESIUM OXIDE 400 MG TABLET (FP) PO ONE (08:41)
[2020-07-19] MEDS ORDERED: traMADol HCL 50 MG TABLET PO ONE (08:41)
[2020-07-19] MEDS: amLODIPine BESYLATE 5 MG TABLET (FP) PO SCH (09:05)
[2020-07-19] MEDS: FOLIC ACID 1 MG TABLET (FP) PO SCH (09:05)
[2020-07-19] MEDS: MULTIVITAMINS (DAILY MVI) TABLET (FP) PO SCH (09:05)
[2020-07-19] MEDS: DOCUSATE SODIUM 100 MG CAPSULE (FP) PO SCH (09:05)
[2020-07-19] MEDS: THIAMINE HCL 100 MG TABLET (FP) PO SCH (09:05)
[2020-07-19] MEDS: FERROUS SO4 325 MG TABLET (FP) PO SCH (09:05)
== END 2020-07-19 10:27 | disposition home or self-care (01) | DRG 347 ==
LOC: JER 16:58 → JERBED 07-12 00:40 → UNDOADMOB 07-12 00:40 → JERBED 07-12 01:14 → INTOOBSV 07-12 01:14 → OBSVTOIN 07-12 01:14 → J7W 07-12 18:19 → JERBED 07-12 18:19 → J7W 07-12 18:19 → OBSVTOIN 07-18 17:22
PROVIDERS: ADMIT Hospitalist; ATTEND Internal Medicine
DX: S22.079A Unspecified fracture of T9-T10 vertebra, initial encounter for closed fracture (principal); S24.133A Anterior cord syndrome at T7-T10 level of thoracic spinal cord, initial encounter; F10.10 Alcohol abuse, uncomplicated; I10 Essential (primary) hypertension; D50.9 Iron deficiency anemia, unspecified; W01.0XXA Fall on same level from slipping, tripping and stumbling without subsequent striking against object, initial encounter; Y93.89 Activity, other specified; Y92.89 Other specified places as the place of occurrence of the external cause; Y99.8 Other external cause status; Z59.0 Homelessness; Z86.16 Personal history of COVID-19
CPT/HCPCS: 36415; 71045-TC-FY; 71046-TC-FY; 80048; 80053; 81003; 83735; 84100; 85025; 85027; 85610; 93005; 93010; 97116-GP; 97161-GP; 99285-25; C9803; G0378; U0003

== ENCOUNTER 2020-07-20 14:58 | Emergency (ER) | payer OTHER ==
[2020-07-20 16:33] VITALS: BMI 33.0
[2020-07-21 05:18] VITALS: TEMP 98.7
[2020-07-21 11:25] VITALS: BP 122/90; PULSE 89
== END 2020-07-21 11:35 | disposition home or self-care (01) ==
LOC: JER 14:58
DX: F10.10 Alcohol abuse, uncomplicated (principal)
CPT/HCPCS: 99284-25

== ENCOUNTER 2020-07-23 14:54 | Emergency (ER) | payer OTHER ==
[2020-07-23 15:14] VITALS: BP 142/88; PULSE 84; TEMP 98.1; BMI 30.1
[2020-07-23] MEDS ORDERED: LIDOCAINE 5% TOPICAL PATCH TP ONE (16:55)
[2020-07-23] MEDS ORDERED: ACETAMINOPHEN 500 MG TABLET (FP) PO ONE (16:55)
[2020-07-23] MEDS ORDERED: LIDOCAINE PATCH REMOVAL MC SCH (22:00)
== END 2020-07-23 18:00 | disposition home or self-care (01) ==
LOC: JER 14:54
DX: M54.5 Low back pain (principal); G89.29 Other chronic pain
CPT/HCPCS: 99284-25

== ENCOUNTER 2020-07-23 20:42 | Emergency (ER) | payer OTHER ==
[2020-07-23 20:47] VITALS: BMI 33.7
[2020-07-24 05:22] VITALS: BP 108/53; PULSE 83; TEMP 97.7
== END 2020-07-24 06:33 | disposition home or self-care (01) ==
LOC: JER 20:42
DX: M54.9 Dorsalgia, unspecified (principal); Z59.0 Homelessness; W19.XXXA Unspecified fall, initial encounter
CPT/HCPCS: 70450-TC; 72125-TC; 99284-25

== ENCOUNTER 2020-07-27 06:51 | Emergency (ER) | payer OTHER ==
[2020-07-27 07:12] VITALS: BP 151/83; PULSE 83; TEMP 98.3; BMI 32.3
== END 2020-07-27 10:45 | disposition home or self-care (01) ==
LOC: JER 06:51
DX: S40.012A Contusion of left shoulder, initial encounter (principal); W01.0XXA Fall on same level from slipping, tripping and stumbling without subsequent striking against object, initial encounter
CPT/HCPCS: 73030-TC-LT-FY; 99283-25

== ENCOUNTER 2020-07-27 20:37 | Emergency (ER) | payer OTHER ==
[2020-07-27 20:42] VITALS: BP 109/66; PULSE 80; TEMP 97; BMI 33.0
== END 2020-07-28 06:35 | disposition home or self-care (01) ==
LOC: JER 20:37
DX: F10.10 Alcohol abuse, uncomplicated (principal); Z59.0 Homelessness
CPT/HCPCS: 99283-25

== ENCOUNTER 2020-07-29 08:19 | Emergency (ER) | payer OTHER ==
[2020-07-29 08:23] VITALS: BP 157/87; PULSE 88; TEMP 97; BMI 33.0
[2020-07-29] MEDS ORDERED: ACETAMINOPHEN 500 MG TABLET (FP) PO ONE (10:37)
[2020-07-29] MEDS ORDERED: chlordiazePOXIDE HCL 25 MG CAPSULE PO ONE (10:47)
[2020-07-29] MEDS ORDERED: ACETAMINOPHEN 500 MG TABLET (FP) ONE (10:53)
== END 2020-07-29 11:53 | disposition home or self-care (01) ==
LOC: JER 08:19
DX: M79.642 Pain in left hand (principal); F10.10 Alcohol abuse, uncomplicated; M54.5 Low back pain; S60.552A Superficial foreign body of left hand, initial encounter
CPT/HCPCS: 70450-TC; 70486-TC; 72125-TC; 73130-TC-LT-FY; 99285-25

== ENCOUNTER 2020-08-02 15:58 | Emergency (ER) | payer OTHER ==
[2020-08-02 16:25] VITALS: BMI 33.0
[2020-08-02] MEDS ORDERED: ACETAMINOPHEN 325 MG TABLET (FP) PO ONE (22:09)
[2020-08-02] MEDS ORDERED: chlordiazePOXIDE HCL 25 MG CAPSULE PO ONE (22:17)
[2020-08-03 06:38] VITALS: BP 145/96; PULSE 93; TEMP 98.4
[2020-08-03] MEDS ORDERED: chlordiazePOXIDE HCL 25 MG CAPSULE PO ONE (07:55)
== END 2020-08-03 09:45 | disposition home or self-care (01) ==
LOC: JER 15:58
DX: S09.93XA Unspecified injury of face, initial encounter (principal)
CPT/HCPCS: 70450-TC; 70486-TC; 72125-TC; 99285-25

== ENCOUNTER 2020-08-03 09:42 | Inpatient (IN) | payer OTHER ==
[2020-08-03] MEDS ORDERED: ONDANSETRON *ODT* 4 MG TABLET SL PRN (11:45)
[2020-08-03] MEDS ORDERED: MAG HYDROX/AL HYDROX/SIMETH 30 ML UNIT-DOSE CUP PO PRN (11:45)
[2020-08-03] MEDS ORDERED: MAGNESIUM CITRATE 300 ML BOTTLE PO PRN (11:45)
[2020-08-03] MEDS ORDERED: MENTHOL/PHENOL 1 EACH UD MM PRN (11:45)
[2020-08-03] MEDS ORDERED: ACETAMINOPHEN 325 MG TABLET (FP) PO PRN ×2 (11:45)
[2020-08-03] MEDS ORDERED: MAGNESIUM HYDROX 2400MG/30ML ORAL SUSPENSION 30 ML CUP PO PRN (11:45)
[2020-08-03] MEDS ORDERED: BISMUTH SUBSALICYLATE 262 MG/15 ML BTL PO PRN (11:45)
[2020-08-03 12:07] VITALS: BMI 33.7
[2020-08-03] MEDS: chlordiazePOXIDE HCL 25 MG CAPSULE PO PRN (13:13)
[2020-08-03] MEDS: hydrOXYzine PAMOATE 25 MG CAPSULE (FP) PO SCH ×3 (13:13→23:38)
[2020-08-03] MEDS: PRENATAL VITAMINS W/ FOLIC ACID TABLET (FP) PO SCH (13:16)
[2020-08-03] MEDS: METHOCARBAMOL 500 MG TABLET PO PRN (15:59)
[2020-08-03 17:48] LABS: HEMATOCRIT 33.2 % (35.4-49); HEMOGLOBIN 10.3 GM/dL (11.7-16.9); MCH 23.5 pg (25.7-33.7); MEAN CELL VOLUME 75.7 fl (80-96); MEAN PLT VOLUME 8.2 fl (7.5-11.1); PLATELET COUNT 244 K/MM3 (134-434); RBC 4.39 M/mm3 (4.00-5.60); RDW 20.9 % (11.9-15.9); WHITE BLOOD COUNT 7.8 K/mm3 (4.0-10.0)
[2020-08-03 17:52] LABS: POTASSIUM 3.5 mmol/L (3.5-5.1)
[2020-08-03] MEDS: chlordiazePOXIDE HCL 25 MG CAPSULE PO SCH ×2 (17:54→23:37)
[2020-08-03 17:56] LABS: ALBUMIN 3.7 g/dl (3.4-5.0); BLOOD UREA NITROGEN 7.8 mg/dL (7-18)
[2020-08-03 17:59] LABS: CREATININE 0.6 mg/dL (0.55-1.3)
[2020-08-03 18:01] LABS: BILIRUBIN,TOTAL 1.5 mg/dL (0.2-1); TOT PROT 7.3 g/dl (6.4-8.2)
[2020-08-03] MEDS: MELATONIN 5 MG TABLETS PO SCH (23:38)
[2020-08-03] MEDS: THIAMINE HCL 100 MG TABLET (FP) PO SCH (23:38)
[2020-08-04] MEDS: METHOCARBAMOL 500 MG TABLET PO PRN ×2 (02:24→14:47)
[2020-08-04] MEDS: IBUPROFEN 400 MG TABLET (FP) PO PRN ×2 (02:24→14:47)
[2020-08-04] MEDS: chlordiazePOXIDE HCL 25 MG CAPSULE PO SCH ×4 (05:59→23:45)
[2020-08-04] MEDS: hydrOXYzine PAMOATE 25 MG CAPSULE (FP) PO SCH ×6 (06:03→23:57)
[2020-08-04] MEDS: PRENATAL VITAMINS W/ FOLIC ACID TABLET (FP) PO SCH (10:49)
[2020-08-04] MEDS: MELATONIN 5 MG TABLETS PO SCH (23:44)
[2020-08-04] MEDS: THIAMINE HCL 100 MG TABLET (FP) PO SCH (23:44)
[2020-08-04] MEDS: chlordiazePOXIDE HCL 25 MG CAPSULE PO PRN (23:58)
[2020-08-05] MEDS: hydrOXYzine PAMOATE 25 MG CAPSULE (FP) PO SCH ×5 (06:26→22:48)
[2020-08-05] MEDS: chlordiazePOXIDE HCL 25 MG CAPSULE PO SCH ×4 (06:26→22:48)
[2020-08-05] MEDS: METHOCARBAMOL 500 MG TABLET PO PRN ×2 (06:27→12:58)
[2020-08-05] MEDS: PRENATAL VITAMINS W/ FOLIC ACID TABLET (FP) PO SCH (10:59)
[2020-08-05] MEDS ORDERED: cloNIDine HCL 0.1 MG TABLET PO PRN (11:26)
[2020-08-05] MEDS ORDERED: PATIENT'S OWN MEDICATION (NON-FORMULARY) (Ferrous Sulfate [Feosol] 325 MG Tablet) PO SCH (11:45)
[2020-08-05] MEDS: amLODIPine BESYLATE 5 MG TABLET (FP) PO SCH (12:55)
[2020-08-05] MEDS: FERROUS SO4 325 MG TABLET (FP) PO SCH (13:00)
[2020-08-05] MEDS: IBUPROFEN 400 MG TABLET (FP) PO PRN (13:01)
[2020-08-05] MEDS: MELATONIN 5 MG TABLETS PO SCH (22:48)
[2020-08-05] MEDS: THIAMINE HCL 100 MG TABLET (FP) PO SCH (22:48)
[2020-08-06] MEDS ORDERED: chlordiazePOXIDE HCL 10 MG CAPSULE PO PRN
[2020-08-06] MEDS: hydrOXYzine PAMOATE 25 MG CAPSULE (FP) PO SCH ×5 (05:53→23:17)
[2020-08-06] MEDS: chlordiazePOXIDE HCL 10 MG CAPSULE PO SCH ×5 (05:53→23:40)
[2020-08-06] MEDS: METHOCARBAMOL 500 MG TABLET PO PRN ×3 (06:00→23:43)
[2020-08-06] MEDS: FERROUS SO4 325 MG TABLET (FP) PO SCH (09:33)
[2020-08-06] MEDS: PRENATAL VITAMINS W/ FOLIC ACID TABLET (FP) PO SCH (09:33)
[2020-08-06] MEDS: amLODIPine BESYLATE 5 MG TABLET (FP) PO SCH (09:33)
[2020-08-06 12:17] LABS: POTASSIUM 3.6 mmol/L (3.5-5.1)
[2020-08-06 12:26] LABS: CALCIUM 8.6 mg/dL (8.5-10.1)
[2020-08-06 12:27] LABS: BLOOD UREA NITROGEN 7.5 mg/dL (7-18)
[2020-08-06 12:29] LABS: CREATININE 0.6 mg/dL (0.55-1.3)
[2020-08-06 12:33] LABS: BILIRUBIN,TOTAL 0.7 mg/dL (0.2-1)
[2020-08-06] MEDS: MELATONIN 5 MG TABLETS PO SCH (23:17)
[2020-08-06] MEDS: THIAMINE HCL 100 MG TABLET (FP) PO SCH (23:17)
[2020-08-07] MEDS ORDERED: chlordiazePOXIDE HCL 10 MG CAPSULE PO SCH (05:00)
[2020-08-07] MEDS: hydrOXYzine PAMOATE 25 MG CAPSULE (FP) PO SCH ×3 (05:59→13:47)
[2020-08-07] MEDS: METHOCARBAMOL 500 MG TABLET PO PRN (06:22)
[2020-08-07] MEDS ORDERED: ALBUTEROL SO4 HFA INHALER IH PRN (08:06)
[2020-08-07] MEDS ORDERED: ALBUTEROL SO4 2.5/IPRATROPIUM 0.5 INH SOL 3 ML VIAL.NEB. NEB PRN (08:23)
[2020-08-07 09:20] VITALS: BP 118/64; PULSE 94; TEMP 97.4
[2020-08-07] MEDS: FERROUS SO4 325 MG TABLET (FP) PO SCH (09:34)
[2020-08-07] MEDS: PRENATAL VITAMINS W/ FOLIC ACID TABLET (FP) PO SCH (09:34)
[2020-08-07] MEDS: amLODIPine BESYLATE 5 MG TABLET (FP) PO SCH (10:45)
[2020-08-08] MEDS ORDERED: chlordiazePOXIDE HCL 10 MG CAPSULE PO ONE (05:00)
== END 2020-08-07 16:57 | disposition home or self-care (01) | DRG 775 ==
LOC: YASAS 09:42 → Y6N 12:07
PROVIDERS: ADMIT Allergy & Immunology; ATTEND Allergy & Immunology
PROC: HZ2ZZZZ Detoxification Services for Substance Abuse Treatment (ICD-10-PCS; principal; 2020-08-03)
DX: F10.230 Alcohol dependence with withdrawal, uncomplicated (principal); D50.9 Iron deficiency anemia, unspecified; I10 Essential (primary) hypertension; J44.9 Chronic obstructive pulmonary disease, unspecified; K21.9 Gastro-esophageal reflux disease without esophagitis; C45.0 Mesothelioma of pleura; J61 Pneumoconiosis due to asbestos and other mineral fibers; J45.909 Unspecified asthma, uncomplicated; M54.5 Low back pain; G89.29 Other chronic pain; R29.6 Repeated falls; R60.0 Localized edema; E66.9 Obesity, unspecified; Z68.33 Body mass index [BMI] 33.0-33.9, adult; Z87.81 Personal history of (healed) traumatic fracture; Z99.89 Dependence on other enabling machines and devices; Z91.013 Allergy to seafood; Z59.0 Homelessness; Z56.0 Unemployment, unspecified; S22.071D Stable burst fracture of T9-T10 vertebra, subsequent encounter for fracture with routine healing; S22.081D Stable burst fracture of T11-T12 vertebra, subsequent encounter for fracture with routine healing; X58.XXXD Exposure to other specified factors, subsequent encounter
CPT/HCPCS: 36415; 80053; 85027; 86780; 94640; C9803; J0735; U0003

== ENCOUNTER 2020-08-12 14:38 | Inpatient (IN) | payer OTHER ==
[2020-08-12 15:51] LABS: BASO % 1.3 % (0-2.0); EOS % 3.4 % (0-4.5); HEMATOCRIT 31.1 % (35.4-49); HEMOGLOBIN 9.7 GM/dL (11.7-16.9); LYMPH % 34.4 % (8-40); MCH 23.8 pg (25.7-33.7); MCHC 31.1 g/dl (32.0-35.9); MEAN CELL VOLUME 76.4 fl (80-96); MEAN PLT VOLUME 7.4 fl (7.5-11.1); NEUT % 52.9 % (42.8-82.8); PLATELET COUNT 288 K/MM3 (134-434); RBC 4.07 M/mm3 (4.00-5.60); RDW 22.7 % (11.9-15.9); WHITE BLOOD COUNT 5.5 K/mm3 (4.0-10.0)
[2020-08-12 15:57] LABS: VENOUS BASE EXCESS 0.2 mmol/L (-2-2); VENOUS O2 SATURATION 69.8 % (70-80); VENOUS PCO2 60.2 mmHg (38-52); VENOUS PH 7.282 (7.310-7.410)
[2020-08-12 15:59] LABS: INR 0.99 (0.83-1.09); PROTHROMBIN TIME (PATIENT) 12.2 SEC (9.7-13.0)
[2020-08-12 16:01] LABS: ACTIVATED PTT 30.8 SECONDS (25.2-36.5)
[2020-08-12] MEDS ORDERED: DEXAMETHASONE SOD PHOSPHATE 10 MG/1 ML VIAL IVPUSH ONE (16:04)
[2020-08-12] MEDS ORDERED: ALBUTEROL SO4 2.5/IPRATROPIUM 0.5 INH SOL 3 ML VIAL.NEB. NEB ONE (16:17)
[2020-08-12] MEDS ORDERED: DEXAMETHASONE SOD PHOSPHATE 10 MG/1 ML VIAL ONE (16:17)
[2020-08-12] MEDS: ALBUTEROL SO4 2.5/IPRATROPIUM 0.5 INH SOL 3 ML VIAL.NEB. NEB SCH ×3 (16:31→17:36)
[2020-08-12 16:49] LABS: CHLORIDE 110 mmol/L (98-107); POTASSIUM 3.4 mmol/L (3.5-5.1); SODIUM 145 mmol/L (136-145)
[2020-08-12] MEDS ORDERED: POTASSIUM CHLORIDE TABS 10 MEQ TABLET.ER (FP) PO ONE (16:50)
[2020-08-12 16:51] LABS: ANISOCYTOSIS 3+; CALCIUM 8.2 mg/dL (8.5-10.1); GLUCOSE,RANDOM 105 mg/dL (74-106); MACROCYTOSIS 0; PLATELET ESTIMATE NORMAL
[2020-08-12 16:52] LABS: ALBUMIN 3.2 g/dl (3.4-5.0); ANION GAP 7 MMOL/L (8-16); BLOOD UREA NITROGEN 8.1 mg/dL (7-18); CO2 29 mmol/L (21-32)
[2020-08-12 16:54] LABS: BILIRUBIN,DIRECT 0.1 mg/dL (0.0-0.2)
[2020-08-12 16:55] LABS: CREATININE 0.6 mg/dL (0.55-1.3); SGOT/AST 20 U/L (15-37)
[2020-08-12 16:56] LABS: BILIRUBIN,TOTAL 0.2 mg/dL (0.2-1); OVALOCYTE 1+; TOT PROT 6.5 g/dl (6.4-8.2)
[2020-08-12 16:57] LABS: ALK PHOS 126 U/L (45-117)
[2020-08-12] MEDS ORDERED: LACTATED RINGERS SOLUTION 1000 ML INFUS.BAG IV ONE (17:00)
[2020-08-12 17:03] LABS: SGPT/ALT 27 U/L (13-61)
[2020-08-12 17:05] LABS: LDH 168 U/L (87-246)
[2020-08-12] MEDS ORDERED: FOLIC ACID INJECTION - 1 MG, THIAMINE HCL 100 MG, MULTIVIT INJECTION ADULT 10 ML in SOD... IVPB ONE (20:50)
[2020-08-12] MEDS ORDERED: LIDOCAINE 5% TOPICAL PATCH TP ONE (20:50)
[2020-08-12] MEDS ORDERED: IRON SUCROSE INJECTION 500 MG in SODIUM CHLORIDE 225 ML IVPB ONE (21:47)
[2020-08-12] MEDS ORDERED: IRON SUCROSE INJECTION 200 MG in SODIUM CHLORIDE 240 ML IVPB ONE (21:56)
[2020-08-12] MEDS ORDERED: IRON SUCROSE INJECTION 200 MG in SODIUM CHLORIDE 100 ML IVPB ONE (22:00)
[2020-08-12] MEDS ORDERED: LIDOCAINE PATCH REMOVAL MC SCH (22:00)
[2020-08-12 22:03] LABS: MAGNESIUM 1.5 mg/dL (1.8-2.4)
[2020-08-12] MEDS ORDERED: LORazepam 2 MG/ML SDV VIAL IVPUSH ONE (22:36)
[2020-08-12] MEDS ORDERED: LORazepam 2 MG/ML SDV VIAL IVPB ONE (23:06)
[2020-08-12] MEDS ORDERED: MAGNESIUM SULF 50% (8.12 MEQ/2 ML-1 GM VIAL) IVPB ONE (23:11)
[2020-08-13] MEDS: KCL 10 MEQ IVPB 10 MEQ/100 ML INFUS.BAG IVPB SCH ×2 (00:54→00:57)
[2020-08-13 02:14] LABS: URINE APPEARANCE CLEAR; URINE BILIRUBIN NEGATIVE (NEGATIVE); URINE COLOR YELLOW; URINE GLUCOSE (UA) TRACE (NEGATIVE); URINE KETONE NEGATIVE (NEGATIVE); URINE LEUK ESTERASE NEGATIVE (NEGATIVE); URINE NITRITE NEGATIVE (NEGATIVE); URINE PROTEIN NEGATIVE (NEGATIVE); URINE UROBILINOGEN 0.2 mg/dL (0.2-1.0)
[2020-08-13 02:24] LABS: COCAINE, UR NEGATIVE ng/ml (CUTOFF=300); METHADONE, UR NEGATIVE ng/ml (CUTOFF=300); OPIATES, URI NEGATIVE ng/ml (CUTOFF=300); PHENCYCLIDINE,URINE NEGATIVE ng/ml (CUTOFF=25)
[2020-08-13 02:35] LABS: URINE AMPHETAMINES NEGATIVE ng/ml (CUTOFF=500); URINE BARBITURATES NEGATIVE ng/ml (CUTOFF=200)
[2020-08-13 02:37] LABS: URINE BENZODIAZEPINES POSITIVE ng/ml (CUTOFF=200)
[2020-08-13] MEDS ORDERED: KCL 10 MEQ IVPB 10 MEQ/100 ML INFUS.BAG IVPB SCH (03:00)
[2020-08-13] MEDS: LORazepam 1 MG TABLET PO PRN ×2 (05:29→10:47)
[2020-08-13] MEDS ORDERED: IRON SUCROSE INJECTION 200 MG in SODIUM CHLORIDE 90 ML IVPB ONE (08:00)
[2020-08-13] MEDS ORDERED: LIDOCAINE PATCH REMOVAL MC ONE (08:00)
[2020-08-13] MEDS ORDERED: FOLIC ACID 1 MG TABLET (FP) ONE (09:32)
[2020-08-13] MEDS ORDERED: amLODIPine BESYLATE 5 MG TABLET (FP) ONE (09:32)
[2020-08-13] MEDS ORDERED: THIAMINE HCL 100 MG TABLET (FP) ONE (09:32)
[2020-08-13] MEDS: FOLIC ACID 1 MG TABLET (FP) PO SCH (09:40)
[2020-08-13] MEDS: amLODIPine BESYLATE 5 MG TABLET (FP) PO SCH (09:45)
[2020-08-13] MEDS: THIAMINE HCL 100 MG TABLET (FP) PO SCH (09:49)
[2020-08-13] MEDS ORDERED: ENOXAPARIN NA (PORCINE) 40 MG/0.4 ML DISP.SYRIN SQ SCH (10:00)
[2020-08-13] MEDS ORDERED: PANTOPRAZOLE SODIUM 40 MG VIAL ONE (10:31)
[2020-08-13] MEDS: PANTOPRAZOLE SODIUM 40 MG VIAL IVPUSH SCH (10:42)
[2020-08-13] MEDS ORDERED: LORazepam 1 MG TABLET ONE (10:45)
[2020-08-13 12:31] LABS: POTASSIUM 3.9 mmol/L (3.5-5.1)
[2020-08-13 12:32] LABS: BASO % 0.3 % (0-2.0); HEMATOCRIT 32.1 % (35.4-49); MCH 23.7 pg (25.7-33.7); MCHC 31.3 g/dl (32.0-35.9); MEAN CELL VOLUME 75.9 fl (80-96); MEAN PLT VOLUME 7.7 fl (7.5-11.1); MONO % 3.2 % (3.8-10.2); NEUT % 89.5 % (42.8-82.8); PLATELET COUNT 308 K/MM3 (134-434); RBC 4.23 M/mm3 (4.00-5.60); RDW 22.7 % (11.9-15.9); WHITE BLOOD COUNT 8.5 K/mm3 (4.0-10.0)
[2020-08-13 12:37] LABS: ALBUMIN 3.2 g/dl (3.4-5.0)
[2020-08-13 12:38] LABS: BLOOD UREA NITROGEN 6.4 mg/dL (7-18); CALCIUM 8.7 mg/dL (8.5-10.1); MAGNESIUM 1.8 mg/dL (1.8-2.4)
[2020-08-13 12:41] LABS: CREATININE 0.7 mg/dL (0.55-1.3)
[2020-08-13 12:42] LABS: PHOSPHOROUS 3.1 mg/dL (2.5-4.9)
[2020-08-13 12:43] LABS: BILIRUBIN,TOTAL 0.5 mg/dL (0.2-1); TOT PROT 6.5 g/dl (6.4-8.2)
[2020-08-13 14:35] VITALS: BMI 37.0
[2020-08-13] MEDS ORDERED: ALBUTEROL SO4 0.083% IH SOL 2.5 MG/3 ML VIAL.NEB. NEB STA (17:44)
[2020-08-13] MEDS ORDERED: ALBUTEROL SO4 0.083% IH SOL 2.5 MG/3 ML VIAL.NEB. NEB PRN (18:10)
[2020-08-13] MEDS ORDERED: LACTATED RINGERS SOLUTION 1,000 ML/1,000 ML INFUS.BAG IV SCH (18:15)
[2020-08-13] MEDS: ENOXAPARIN NA (PORCINE) 40 MG/0.4 ML DISP.SYRIN SQ SCH (22:11)
[2020-08-14 10:02] LABS: BASO % 0.6 % (0-2.0); EOS % 0.2 % (0-4.5); HEMATOCRIT 31.1 % (35.4-49); LYMPH % 19.2 % (8-40); MCH 24.3 pg (25.7-33.7); MCHC 32.3 g/dl (32.0-35.9); MEAN CELL VOLUME 75.3 fl (80-96); MEAN PLT VOLUME 7.8 fl (7.5-11.1); MONO % 5.5 % (3.8-10.2); NEUT % 74.5 % (42.8-82.8); PLATELET COUNT 284 K/MM3 (134-434); RBC 4.13 M/mm3 (4.00-5.60); RDW 22.3 % (11.9-15.9); WHITE BLOOD COUNT 8.2 K/mm3 (4.0-10.0)
[2020-08-14] MEDS: PANTOPRAZOLE SODIUM 40 MG VIAL IVPUSH SCH (10:06)
[2020-08-14] MEDS: THIAMINE HCL 100 MG TABLET (FP) PO SCH (10:06)
[2020-08-14] MEDS: amLODIPine BESYLATE 5 MG TABLET (FP) PO SCH (10:06)
[2020-08-14] MEDS: FOLIC ACID 1 MG TABLET (FP) PO SCH (10:06)
[2020-08-14 10:18] LABS: POTASSIUM 3.6 mmol/L (3.5-5.1)
[2020-08-14 10:20] LABS: CALCIUM 8.9 mg/dL (8.5-10.1)
[2020-08-14 10:21] LABS: BLOOD UREA NITROGEN 7.4 mg/dL (7-18); MAGNESIUM 1.6 mg/dL (1.8-2.4)
[2020-08-14 10:23] LABS: PHOSPHOROUS 2.6 mg/dL (2.5-4.9)
[2020-08-14 10:24] LABS: CREATININE 0.5 mg/dL (0.55-1.3)
[2020-08-14 10:25] LABS: BILIRUBIN,TOTAL 0.7 mg/dL (0.2-1); TOT PROT 6.2 g/dl (6.4-8.2)
[2020-08-14] MEDS ORDERED: MAGNESIUM SULF 50% (8.12 MEQ/2 ML-1 GM VIAL) IVPB ONE (14:45)
[2020-08-14] MEDS: MULTIVITAMINS (DAILY MVI) TABLET (FP) PO SCH ×2 (15:29→15:35)
[2020-08-14] MEDS ORDERED: ACETAMINOPHEN 500 MG TABLET (FP) PO ONE (23:06)
[2020-08-15] MEDS: MULTIVITAMINS (DAILY MVI) TABLET (FP) PO SCH (09:05)
[2020-08-15] MEDS: amLODIPine BESYLATE 5 MG TABLET (FP) PO SCH (09:05)
[2020-08-15] MEDS: PANTOPRAZOLE SODIUM 40 MG VIAL IVPUSH SCH ×2 (09:05→09:08)
[2020-08-15] MEDS: THIAMINE HCL 100 MG TABLET (FP) PO SCH (09:05)
[2020-08-15] MEDS: FOLIC ACID 1 MG TABLET (FP) PO SCH (09:05)
[2020-08-15] MEDS: predniSONE 20 MG TABLET (UD) PO SCH (09:39)
[2020-08-15 10:33] LABS: BASO % 0.5 % (0-2.0); EOS % 2.7 % (0-4.5); HEMATOCRIT 33.3 % (35.4-49); HEMOGLOBIN 10.4 GM/dL (11.7-16.9); LYMPH % 27.1 % (8-40); MCH 23.5 pg (25.7-33.7); MCHC 31.3 g/dl (32.0-35.9); MEAN CELL VOLUME 75.2 fl (80-96); MEAN PLT VOLUME 7.8 fl (7.5-11.1); MONO % 5.8 % (3.8-10.2); NEUT % 63.9 % (42.8-82.8); PLATELET COUNT 264 K/MM3 (134-434); RBC 4.42 M/mm3 (4.00-5.60); RDW 22.6 % (11.9-15.9); WHITE BLOOD COUNT 6.8 K/mm3 (4.0-10.0)
[2020-08-15 11:02] LABS: BLOOD UREA NITROGEN 8.5 mg/dL (7-18); CALCIUM 8.6 mg/dL (8.5-10.1); MAGNESIUM 1.6 mg/dL (1.8-2.4)
[2020-08-15 11:05] LABS: CREATININE 0.6 mg/dL (0.55-1.3); PHOSPHOROUS 2.9 mg/dL (2.5-4.9)
[2020-08-15 11:06] LABS: BILIRUBIN,TOTAL 0.6 mg/dL (0.2-1); TOT PROT 5.9 g/dl (6.4-8.2)
[2020-08-15 11:09] LABS: POTASSIUM 3.4 mmol/L (3.5-5.1)
[2020-08-15] MEDS ORDERED: AZITHROMYCIN IVPB 500 MG in DEXTROSE 5%-WATER - 250 ML IVPB ONE (14:30)
[2020-08-15] MEDS ORDERED: PT OWN MED DRAWER 7, Y5N ONE (14:31)
[2020-08-15] MEDS ORDERED: POTASSIUM CHLORIDE ORAL LIQUID 20 MEQ/15 ML PO ONE (14:45)
[2020-08-15] MEDS ORDERED: MAGNESIUM 1GM/D5W 100ML - 100 ML IVPB IVPB ONE (14:45)
[2020-08-15] MEDS: ENOXAPARIN NA (PORCINE) 40 MG/0.4 ML DISP.SYRIN SQ SCH (15:07)
[2020-08-15] MEDS: TIOTROPIUM BROMIDE 2.5 MCG (SPIRIVA) RESPIMAT INHALER IH SCH (15:12)
[2020-08-15] MEDS: BUDESONIDE/FORMETEROL FUMARATE 160/4.5 mcg INHALER IH SCH ×2 (15:12→22:04)
[2020-08-15] MEDS: KCL 10 MEQ IVPB 10 MEQ/100 ML INFUS.BAG IVPB SCH ×2 (15:12→17:15)
[2020-08-15] MEDS: DOXYCYCLINE HYCLATE 100 MG CAPSULE PO SCH (18:08)
[2020-08-16 08:41] LABS: BASO % 0.2 % (0-2.0); EOS % 0.9 % (0-4.5); HEMATOCRIT 33.5 % (35.4-49); HEMOGLOBIN 10.7 GM/dL (11.7-16.9); MCHC 31.8 g/dl (32.0-35.9); MEAN CELL VOLUME 75.3 fl (80-96); MEAN PLT VOLUME 7.8 fl (7.5-11.1); MONO % 5.8 % (3.8-10.2); NEUT % 74.1 % (42.8-82.8); PLATELET COUNT 299 K/MM3 (134-434); RBC 4.45 M/mm3 (4.00-5.60); RDW 22.9 % (11.9-15.9); WHITE BLOOD COUNT 8.7 K/mm3 (4.0-10.0)
[2020-08-16 08:57] LABS: POTASSIUM 3.4 mmol/L (3.5-5.1)
[2020-08-16 09:08] LABS: ALBUMIN 3.1 g/dl (3.4-5.0)
[2020-08-16 09:10] LABS: CALCIUM 9.1 mg/dL (8.5-10.1); CREATININE 0.5 mg/dL (0.55-1.3)
[2020-08-16 09:11] LABS: BLOOD UREA NITROGEN 10.9 mg/dL (7-18); MAGNESIUM 1.7 mg/dL (1.8-2.4); PHOSPHOROUS 3.5 mg/dL (2.5-4.9)
[2020-08-16 09:12] LABS: BILIRUBIN,TOTAL 0.6 mg/dL (0.2-1); TOT PROT 6.1 g/dl (6.4-8.2)
[2020-08-16] MEDS: THIAMINE HCL 100 MG TABLET (FP) PO SCH ×2 (09:38→10:33)
[2020-08-16] MEDS: DOXYCYCLINE HYCLATE 100 MG CAPSULE PO SCH ×2 (09:38→18:06)
[2020-08-16] MEDS: predniSONE 20 MG TABLET (UD) PO SCH (09:38)
[2020-08-16] MEDS: FOLIC ACID 1 MG TABLET (FP) PO SCH ×2 (09:38→10:33)
[2020-08-16] MEDS: BUDESONIDE/FORMETEROL FUMARATE 160/4.5 mcg INHALER IH SCH ×3 (09:41→22:01)
[2020-08-16] MEDS: TIOTROPIUM BROMIDE 2.5 MCG (SPIRIVA) RESPIMAT INHALER IH SCH ×2 (09:41→10:33)
[2020-08-16] MEDS: amLODIPine BESYLATE 5 MG TABLET (FP) PO SCH (09:42)
[2020-08-16] MEDS: ENOXAPARIN NA (PORCINE) 40 MG/0.4 ML DISP.SYRIN SQ SCH (09:42)
[2020-08-16] MEDS: MULTIVITAMINS (DAILY MVI) TABLET (FP) PO SCH ×2 (09:43→10:33)
[2020-08-16] MEDS: PANTOPRAZOLE SODIUM 40 MG VIAL IVPUSH SCH (09:45)
[2020-08-16] MEDS ORDERED: AZITHROMYCIN IVPB 250 MG in DEXTROSE 5%-WATER - 250 ML IVPB SCH (10:00)
[2020-08-16 12:31] LABS: ANISOCYTOSIS 1+; MACROCYTOSIS 0; PLATELET ESTIMATE NORMAL
[2020-08-16] MEDS ORDERED: POTASSIUM CHLORIDE TABS 20 MEQ TABLET.ER (FP) PO ONE (16:05)
[2020-08-17 09:27] LABS: BASO % 0.5 % (0-2.0); EOS % 1.9 % (0-4.5); HEMATOCRIT 33.9 % (35.4-49); HEMOGLOBIN 10.8 GM/dL (11.7-16.9); LYMPH % 19.4 % (8-40); MCH 24.1 pg (25.7-33.7); MCHC 31.8 g/dl (32.0-35.9); MEAN CELL VOLUME 75.9 fl (80-96); MEAN PLT VOLUME 7.7 fl (7.5-11.1); MONO % 4.8 % (3.8-10.2); NEUT % 73.4 % (42.8-82.8); PLATELET COUNT 292 K/MM3 (134-434); RBC 4.47 M/mm3 (4.00-5.60); RDW 23.3 % (11.9-15.9); WHITE BLOOD COUNT 10.3 K/mm3 (4.0-10.0)
[2020-08-17 09:40] LABS: POTASSIUM 3.5 mmol/L (3.5-5.1)
[2020-08-17 09:44] LABS: BLOOD UREA NITROGEN 14.1 mg/dL (7-18); CALCIUM 8.8 mg/dL (8.5-10.1)
[2020-08-17 09:47] LABS: CREATININE 0.6 mg/dL (0.55-1.3)
[2020-08-17] MEDS: ENOXAPARIN NA (PORCINE) 40 MG/0.4 ML DISP.SYRIN SQ SCH (11:01)
[2020-08-17] MEDS: DOXYCYCLINE HYCLATE 100 MG CAPSULE PO SCH ×2 (11:01→18:05)
[2020-08-17] MEDS: amLODIPine BESYLATE 5 MG TABLET (FP) PO SCH (11:01)
[2020-08-17] MEDS: predniSONE 20 MG TABLET (UD) PO SCH (11:01)
[2020-08-17] MEDS: FOLIC ACID 1 MG TABLET (FP) PO SCH (11:02)
[2020-08-17] MEDS: BUDESONIDE/FORMETEROL FUMARATE 160/4.5 mcg INHALER IH SCH ×2 (11:02→21:43)
[2020-08-17] MEDS: PANTOPRAZOLE SODIUM 40 MG VIAL IVPUSH SCH (11:02)
[2020-08-17] MEDS: THIAMINE HCL 100 MG TABLET (FP) PO SCH (11:02)
[2020-08-17] MEDS: TIOTROPIUM BROMIDE 2.5 MCG (SPIRIVA) RESPIMAT INHALER IH SCH (11:02)
[2020-08-17] MEDS: MULTIVITAMINS (DAILY MVI) TABLET (FP) PO SCH (11:02)
[2020-08-18] MEDS: PANTOPRAZOLE SODIUM 40 MG VIAL IVPUSH SCH (10:06)
[2020-08-18] MEDS: DOXYCYCLINE HYCLATE 100 MG CAPSULE PO SCH ×2 (10:07→17:51)
[2020-08-18] MEDS: FOLIC ACID 1 MG TABLET (FP) PO SCH (10:07)
[2020-08-18] MEDS: amLODIPine BESYLATE 5 MG TABLET (FP) PO SCH (10:07)
[2020-08-18] MEDS: THIAMINE HCL 100 MG TABLET (FP) PO SCH (10:07)
[2020-08-18] MEDS: MULTIVITAMINS (DAILY MVI) TABLET (FP) PO SCH (10:07)
[2020-08-18] MEDS: predniSONE 20 MG TABLET (UD) PO SCH (10:08)
[2020-08-18] MEDS: ENOXAPARIN NA (PORCINE) 40 MG/0.4 ML DISP.SYRIN SQ SCH (10:15)
[2020-08-18] MEDS: BUDESONIDE/FORMETEROL FUMARATE 160/4.5 mcg INHALER IH SCH ×2 (10:19→21:15)
[2020-08-18] MEDS: TIOTROPIUM BROMIDE 2.5 MCG (SPIRIVA) RESPIMAT INHALER IH SCH (10:19)
[2020-08-18 10:45] LABS: HEMATOCRIT 33.6 % (35.4-49); HEMOGLOBIN 10.4 GM/dL (11.7-16.9); MCH 23.8 pg (25.7-33.7); MEAN CELL VOLUME 76.8 fl (80-96); MEAN PLT VOLUME 7.8 fl (7.5-11.1); PLATELET COUNT 301 K/MM3 (134-434); RBC 4.37 M/mm3 (4.00-5.60); RDW 24.2 % (11.9-15.9); WHITE BLOOD COUNT 12.4 K/mm3 (4.0-10.0)
[2020-08-18 11:09] LABS: CHLORIDE 108 mmol/L (98-107); POTASSIUM 3.4 mmol/L (3.5-5.1); SODIUM 142 mmol/L (136-145)
[2020-08-18 11:11] LABS: BLOOD UREA NITROGEN 14.6 mg/dL (7-18)
[2020-08-18 11:12] LABS: ANION GAP 7 MMOL/L (8-16); CO2 27 mmol/L (21-32); GLUCOSE,RANDOM 109 mg/dL (74-106); MAGNESIUM 1.6 mg/dL (1.8-2.4)
[2020-08-18 11:15] LABS: CREATININE 0.6 mg/dL (0.55-1.3); PHOSPHOROUS 3.7 mg/dL (2.5-4.9)
[2020-08-18] MEDS ORDERED: POTASSIUM CHLORIDE ORAL LIQUID 20 MEQ/15 ML PO ONE (11:17)
[2020-08-18] MEDS ORDERED: MAGNESIUM OXIDE 400 MG TABLET (FP) PO ONE (11:17)
[2020-08-18] MEDS ORDERED: guaiFENesin 200 MG/10 ML 10 ML UNIT-DOSE CUPS PO PRN (11:22)
[2020-08-18] MEDS: PANTOPRAZOLE 40 MG TABLET PO SCH (12:08)
[2020-08-19] MEDS: amLODIPine BESYLATE 5 MG TABLET (FP) PO SCH (09:15)
[2020-08-19] MEDS: PANTOPRAZOLE 40 MG TABLET PO SCH (09:15)
[2020-08-19] MEDS: MULTIVITAMINS (DAILY MVI) TABLET (FP) PO SCH (09:15)
[2020-08-19] MEDS: predniSONE 20 MG TABLET (UD) PO SCH (09:15)
[2020-08-19] MEDS: FOLIC ACID 1 MG TABLET (FP) PO SCH (09:16)
[2020-08-19] MEDS: THIAMINE HCL 100 MG TABLET (FP) PO SCH (09:16)
[2020-08-19] MEDS: DOXYCYCLINE HYCLATE 100 MG CAPSULE PO SCH ×2 (09:17→18:17)
[2020-08-19] MEDS: ENOXAPARIN NA (PORCINE) 40 MG/0.4 ML DISP.SYRIN SQ SCH (09:22)
[2020-08-19] MEDS: BUDESONIDE/FORMETEROL FUMARATE 160/4.5 mcg INHALER IH SCH ×2 (09:23→21:13)
[2020-08-19] MEDS: TIOTROPIUM BROMIDE 2.5 MCG (SPIRIVA) RESPIMAT INHALER IH SCH (09:23)
[2020-08-20 06:18] VITALS: BP 129/77; PULSE 70; TEMP 98.4
[2020-08-20] MEDS: predniSONE 20 MG TABLET (UD) PO SCH (09:50)
[2020-08-20] MEDS: DOXYCYCLINE HYCLATE 100 MG CAPSULE PO SCH (09:50)
[2020-08-20] MEDS: amLODIPine BESYLATE 5 MG TABLET (FP) PO SCH (09:50)
[2020-08-20] MEDS: PANTOPRAZOLE 40 MG TABLET PO SCH (09:50)
[2020-08-20] MEDS: BUDESONIDE/FORMETEROL FUMARATE 160/4.5 mcg INHALER IH SCH (09:51)
[2020-08-20] MEDS: TIOTROPIUM BROMIDE 2.5 MCG (SPIRIVA) RESPIMAT INHALER IH SCH (09:51)
[2020-08-20] MEDS: ENOXAPARIN NA (PORCINE) 40 MG/0.4 ML DISP.SYRIN SQ SCH (09:51)
[2020-08-20] MEDS: FOLIC ACID 1 MG TABLET (FP) PO SCH (09:54)
[2020-08-20] MEDS: MULTIVITAMINS (DAILY MVI) TABLET (FP) PO SCH (09:54)
[2020-08-20] MEDS: THIAMINE HCL 100 MG TABLET (FP) PO SCH (09:54)
== END 2020-08-20 11:25 | disposition home or self-care (01) | DRG 133 ==
LOC: JER 14:38 → JERBED 19:50 → J5S 08-13 14:30
PROVIDERS: ADMIT Internal Medicine
DX: J96.01 Acute respiratory failure with hypoxia (principal); F10.220 Alcohol dependence with intoxication, uncomplicated; E88.89 Other specified metabolic disorders; F10.288 Alcohol dependence with other alcohol-induced disorder; I10 Essential (primary) hypertension; E78.5 Hyperlipidemia, unspecified; E66.9 Obesity, unspecified; Z68.37 Body mass index [BMI] 37.0-37.9, adult; K21.9 Gastro-esophageal reflux disease without esophagitis; J98.11 Atelectasis; D64.9 Anemia, unspecified; R10.9 Unspecified abdominal pain; M54.9 Dorsalgia, unspecified; M79.606 Pain in leg, unspecified; I51.7 Cardiomegaly; E87.2 Acidosis; D50.9 Iron deficiency anemia, unspecified; J44.9 Chronic obstructive pulmonary disease, unspecified; E87.6 Hypokalemia
CPT/HCPCS: 36415; 70450-TC; 71045-TC-FY; 71275-TC; 72125-TC; 80048; 80053; 80307; 81003; 82248; 82272; 82550; 82728; 82803; 83605; 83615; 83735; 84100; 84484; 85025; 85027; 85379; 85610; 85730; 86140; 87040; 87086; 87804; 93005; 93010; 94640; 99285-25; C9803; J1100; J1756; Q9967; U0003

== ENCOUNTER 2020-08-21 20:07 | Emergency (ER) | payer OTHER ==
[2020-08-21 20:39] VITALS: BMI 33.0
[2020-08-22 00:25] VITALS: BP 111/75; PULSE 71; TEMP 97.7
== END 2020-08-22 06:25 | disposition home or self-care (01) ==
LOC: JER 20:07
DX: F10.129 Alcohol abuse with intoxication, unspecified (principal)
CPT/HCPCS: 99281-25

== ENCOUNTER 2020-08-22 11:52 | Emergency (ER) | payer OTHER | END 2020-08-22 17:33 | disposition left against medical advice (07) | LOC: JER 11:52 | DX: F10.929 Alcohol use, unspecified with intoxication, unspecified (principal) | CPT/HCPCS: 99282-25 ==

== ENCOUNTER 2020-08-24 02:08 | Emergency (ER) | payer OTHER ==
[2020-08-24 03:35] VITALS: BMI 35.9
[2020-08-24 06:29] VITALS: BP 119/80; PULSE 95; TEMP 98.2
== END 2020-08-24 06:48 | disposition home or self-care (01) ==
LOC: JER 02:08
DX: M54.9 Dorsalgia, unspecified (principal)
CPT/HCPCS: 99284-25

== ENCOUNTER 2020-08-25 14:23 | Emergency (ER) | payer OTHER ==
[2020-08-25 14:51] VITALS: BMI 33.0
[2020-08-25 17:00] LABS: BASO % 2.3 % (0-2.0); EOS % 1.1 % (0-4.5); HEMATOCRIT 33.9 % (35.4-49); HEMOGLOBIN 10.9 GM/dL (11.7-16.9); LYMPH % 23.8 % (8-40); MCH 24.5 pg (25.7-33.7); MEAN CELL VOLUME 76.4 fl (80-96); MEAN PLT VOLUME 7.9 fl (7.5-11.1); MONO % 8.1 % (3.8-10.2); NEUT % 64.7 % (42.8-82.8); PLATELET COUNT 341 K/MM3 (134-434); RBC 4.44 M/mm3 (4.00-5.60); RDW 23.9 % (11.9-15.9)
[2020-08-25 17:06] LABS: INR 1.03 (0.83-1.09); PROTHROMBIN TIME (PATIENT) 12.6 SEC (9.7-13.0)
[2020-08-25 17:09] LABS: ACTIVATED PTT 28.6 SECONDS (25.2-36.5)
[2020-08-25 17:34] LABS: CHLORIDE 106 mmol/L (98-107); POTASSIUM 4.8 mmol/L (3.5-5.1); SODIUM 142 mmol/L (136-145)
[2020-08-25 17:36] LABS: CALCIUM 9.1 mg/dL (8.5-10.1); LIPASE 42 U/L (73-393)
[2020-08-25 17:37] LABS: ALBUMIN 3.1 g/dl (3.4-5.0); ANION GAP 8 MMOL/L (8-16); BLOOD UREA NITROGEN 8.5 mg/dL (7-18); CO2 28 mmol/L (21-32); GLUCOSE,RANDOM 91 mg/dL (74-106); MAGNESIUM 1.8 mg/dL (1.8-2.4)
[2020-08-25 17:39] LABS: CREATININE 0.4 mg/dL (0.55-1.3); SGOT/AST 43 U/L (15-37); SGPT/ALT 44 U/L (13-61)
[2020-08-25 17:41] LABS: BILIRUBIN,TOTAL 0.8 mg/dL (0.2-1); TOT PROT 6.5 g/dl (6.4-8.2)
[2020-08-25 17:42] LABS: ALK PHOS 136 U/L (45-117)
[2020-08-25 18:12] LABS: ANISOCYTOSIS 3+; OVALOCYTE 2+; PLATELET ESTIMATE ADEQUATE
[2020-08-26 07:05] VITALS: BP 122/64; PULSE 98; TEMP 99.1
== END 2020-08-26 08:32 | disposition left against medical advice (07) ==
LOC: JER 14:23
DX: F10.920 Alcohol use, unspecified with intoxication, uncomplicated (principal); R07.9 Chest pain, unspecified
CPT/HCPCS: 36415; 80053; 83690; 83735; 83880; 84484; 85025; 85610; 85730; 93005; 93010; 99285-25

== ENCOUNTER 2020-08-26 14:43 | Inpatient (IN) | payer OTHER ==
[2020-08-26 14:48] VITALS: BMI 33.0
[2020-08-27 06:49] LABS: BASO % 0.9 % (0-2.0); EOS % 1.8 % (0-4.5); HEMATOCRIT 33.1 % (35.4-49); HEMOGLOBIN 10.6 GM/dL (11.7-16.9); MCH 24.5 pg (25.7-33.7); MCHC 32.1 g/dl (32.0-35.9); MEAN CELL VOLUME 76.2 fl (80-96); MEAN PLT VOLUME 7.4 fl (7.5-11.1); MONO % 6.5 % (3.8-10.2); NEUT % 70.8 % (42.8-82.8); PLATELET COUNT 294 K/MM3 (134-434); RBC 4.34 M/mm3 (4.00-5.60); RDW 23.2 % (11.9-15.9); WHITE BLOOD COUNT 7.6 K/mm3 (4.0-10.0)
[2020-08-27 07:02] LABS: CHLORIDE 107 mmol/L (98-107); POTASSIUM 3.7 mmol/L (3.5-5.1); SODIUM 142 mmol/L (136-145)
[2020-08-27 07:04] LABS: CALCIUM 8.4 mg/dL (8.5-10.1)
[2020-08-27 07:05] LABS: ALBUMIN 3.1 g/dl (3.4-5.0); ANION GAP 6 MMOL/L (8-16); BLOOD UREA NITROGEN 5.5 mg/dL (7-18); CO2 30 mmol/L (21-32); GLUCOSE,RANDOM 81 mg/dL (74-106)
[2020-08-27 07:08] LABS: CREATININE 0.6 mg/dL (0.55-1.3); SGOT/AST 22 U/L (15-37); SGPT/ALT 38 U/L (13-61)
[2020-08-27 07:10] LABS: BILIRUBIN,TOTAL 0.7 mg/dL (0.2-1); TOT PROT 6.3 g/dl (6.4-8.2)
[2020-08-27 07:11] LABS: ALK PHOS 134 U/L (45-117)
[2020-08-27] MEDS ORDERED: ALBUTEROL SO4 2.5/IPRATROPIUM 0.5 INH SOL 3 ML VIAL.NEB. NEB ONE ×2 (07:31→08:01)
[2020-08-27] MEDS ORDERED: ALBUTEROL SO4 0.083% IH SOL 2.5 MG/3 ML VIAL.NEB. NEB PRN (09:09)
[2020-08-27] MEDS ORDERED: FOLIC ACID INJECTION - 1 MG, THIAMINE HCL 100 MG, MULTIVIT INJECTION ADULT 10 ML in SOD... IVPB ONE (10:00)
[2020-08-27] MEDS ORDERED: PT OWN MED DRAWER 7, Y5N ONE (10:39)
[2020-08-27] MEDS: amLODIPine BESYLATE 5 MG TABLET (FP) PO SCH (10:46)
[2020-08-27] MEDS: ACETAMINOPHEN 325 MG TABLET (FP) PO PRN (22:08)
[2020-08-27] MEDS: ATORVASTATIN CA 10 MG TABLET (FP) PO SCH (22:08)
[2020-08-28] MEDS: ACETAMINOPHEN 325 MG TABLET (FP) PO PRN ×2 (08:57→21:48)
[2020-08-28] MEDS: amLODIPine BESYLATE 5 MG TABLET (FP) PO SCH (09:00)
[2020-08-28 10:09] LABS: HEMATOCRIT 34.2 % (35.4-49); MCH 24.6 pg (25.7-33.7); MCHC 32.3 g/dl (32.0-35.9); MEAN CELL VOLUME 76.1 fl (80-96); MEAN PLT VOLUME 7.7 fl (7.5-11.1); PLATELET COUNT 266 K/MM3 (134-434); RBC 4.49 M/mm3 (4.00-5.60); RDW 23.3 % (11.9-15.9); WHITE BLOOD COUNT 8.6 K/mm3 (4.0-10.0)
[2020-08-28 10:26] LABS: POTASSIUM 3.1 mmol/L (3.5-5.1)
[2020-08-28 10:28] LABS: CALCIUM 8.8 mg/dL (8.5-10.1)
[2020-08-28 10:29] LABS: BLOOD UREA NITROGEN 4.4 mg/dL (7-18); MAGNESIUM 1.3 mg/dL (1.8-2.4)
[2020-08-28 10:31] LABS: CREATININE 0.5 mg/dL (0.55-1.3)
[2020-08-28 10:32] LABS: PHOSPHOROUS 3.4 mg/dL (2.5-4.9)
[2020-08-28] MEDS ORDERED: MAGNESIUM SULF 50% (8.12 MEQ/2 ML-1 GM VIAL) IVPB ONE (11:40)
[2020-08-28] MEDS ORDERED: POTASSIUM CHLORIDE TABS 20 MEQ TABLET.ER (FP) PO ONE ×2 (11:41→15:00)
[2020-08-28] MEDS: POTASSIUM CHLORIDE TABS 20 MEQ TABLET.ER (FP) PO ONE ×2 (12:56→13:02)
[2020-08-28] MEDS: chlordiazePOXIDE HCL 25 MG CAPSULE PO PRN ×2 (12:57→21:49)
[2020-08-28] MEDS: ATORVASTATIN CA 10 MG TABLET (FP) PO SCH (21:50)
[2020-08-28 21:55] VITALS: BP 167/98; PULSE 90; TEMP 99.5
[2020-08-29 08:44] LABS: BASO % 0.6 % (0-2.0); EOS % 3.2 % (0-4.5); HEMATOCRIT 34.3 % (35.4-49); LYMPH % 18.4 % (8-40); MCH 24.4 pg (25.7-33.7); MCHC 32.1 g/dl (32.0-35.9); MEAN CELL VOLUME 76.2 fl (80-96); MEAN PLT VOLUME 7.6 fl (7.5-11.1); MONO % 6.6 % (3.8-10.2); NEUT % 71.2 % (42.8-82.8); PLATELET COUNT 258 K/MM3 (134-434); WHITE BLOOD COUNT 7.2 K/mm3 (4.0-10.0)
[2020-08-29 09:05] LABS: POTASSIUM 3.3 mmol/L (3.5-5.1)
[2020-08-29 09:07] LABS: CALCIUM 9.2 mg/dL (8.5-10.1)
[2020-08-29 09:08] LABS: ALBUMIN 3.1 g/dl (3.4-5.0); BLOOD UREA NITROGEN 5.5 mg/dL (7-18); MAGNESIUM 1.6 mg/dL (1.8-2.4)
[2020-08-29 09:11] LABS: CREATININE 0.5 mg/dL (0.55-1.3); PHOSPHOROUS 3.8 mg/dL (2.5-4.9)
[2020-08-29 09:12] LABS: BILIRUBIN,TOTAL 0.9 mg/dL (0.2-1); TOT PROT 6.2 g/dl (6.4-8.2)
[2020-08-29] MEDS ORDERED: POTASSIUM CHLORIDE TABS 20 MEQ TABLET.ER (FP) PO ONE (10:15)
[2020-08-29] MEDS ORDERED: MAGNESIUM 2GM/50ML STERILE WATER IVPB IVPB ONE (10:15)
[2020-08-29] MEDS: amLODIPine BESYLATE 5 MG TABLET (FP) PO SCH (10:25)
[2020-08-29] MEDS ORDERED: chlordiazePOXIDE HCL 10 MG CAPSULE PO SCH (12:00)
[2020-08-29 13:00] LABS: ANISOCYTOSIS 1+; MACROCYTOSIS 0; PLATELET ESTIMATE NORMAL
== END 2020-08-29 10:14 | disposition left against medical advice (07) | DRG 347 ==
LOC: JER 14:43 → JERBED 08-27 07:29 → J6WEST-2 08-27 11:52
PROVIDERS: ADMIT Internal Medicine; ATTEND Student in an Organized Health Care Education/Training Program
DX: M54.5 Low back pain (principal); R07.9 Chest pain, unspecified; I10 Essential (primary) hypertension; E78.5 Hyperlipidemia, unspecified; Z68.33 Body mass index [BMI] 33.0-33.9, adult; E66.01 Morbid (severe) obesity due to excess calories
CPT/HCPCS: 36415; 80048; 80053; 82550; 83735; 84100; 84484; 85025; 85027; 93005; 93010; 99285-25; C9803; U0003

== ENCOUNTER 2020-08-29 18:40 | Emergency (ER) | payer OTHER ==
[2020-08-29 18:57] VITALS: BMI 33.0
[2020-08-29] MEDS ORDERED: IBUPROFEN 600 MG TABLET (FP) PO ONE ×2 (20:35→20:37)
[2020-08-30 06:27] VITALS: BP 107/56; PULSE 75; TEMP 97.8
== END 2020-08-30 08:50 | disposition left against medical advice (07) ==
LOC: JER 18:40
DX: M54.5 Low back pain (principal)
CPT/HCPCS: 71045-TC-FY; 93005; 93010; 99285-25

== ENCOUNTER 2020-08-31 13:25 | Emergency (ER) | payer OTHER ==
[2020-08-31 13:42] VITALS: BMI 34.4
[2020-08-31 18:26] VITALS: BP 105/55; PULSE 93; TEMP 98
== END 2020-08-31 23:38 | disposition home or self-care (01) ==
LOC: JER 13:25
DX: R06.02 Shortness of breath (principal)
CPT/HCPCS: 71045-TC-FY; 99283-25

== ENCOUNTER 2020-09-01 07:47 | Inpatient (IN) | payer OTHER ==
[2020-09-01 09:50] LABS: HEMATOCRIT 35.3 % (35.4-49); HEMOGLOBIN 10.8 GM/dL (11.7-16.9); MCH 24.2 pg (25.7-33.7); MCHC 30.5 g/dl (32.0-35.9); MEAN CELL VOLUME 79.3 fl (80-96); MEAN PLT VOLUME 8.5 fl (7.5-11.1); PLATELET COUNT 252 K/MM3 (134-434); RBC 4.45 M/mm3 (4.00-5.60)
[2020-09-01 10:06] LABS: CHLORIDE 104 mmol/L (98-107); POTASSIUM 3.6 mmol/L (3.5-5.1); SODIUM 139 mmol/L (136-145)
[2020-09-01 10:08] LABS: ALBUMIN 3.4 g/dl (3.4-5.0); ANION GAP 6 MMOL/L (8-16); BLOOD UREA NITROGEN 9.4 mg/dL (7-18); CO2 30 mmol/L (21-32); GLUCOSE,RANDOM 88 mg/dL (74-106); MAGNESIUM 1.4 mg/dL (1.8-2.4)
[2020-09-01 10:11] LABS: CREATININE 0.7 mg/dL (0.55-1.3); SGOT/AST 21 U/L (15-37); SGPT/ALT 35 U/L (13-61)
[2020-09-01 10:13] LABS: BILIRUBIN,TOTAL 0.5 mg/dL (0.2-1); TOT PROT 6.6 g/dl (6.4-8.2)
[2020-09-01 10:14] LABS: ALK PHOS 130 U/L (45-117)
[2020-09-01 10:16] LABS: N-TERMINAL BNP 89.3 pg/ml (5-125); PROTHROMBIN TIME (PATIENT) 12.1 SEC (9.7-13.0)
[2020-09-01 11:14] LABS: ACTIVATED PTT 20.5 SECONDS (25.2-36.5)
[2020-09-01] MEDS ORDERED: MAGNESIUM CL 64 MG TABLET.SA PO ONE (11:30)
[2020-09-01] MEDS ORDERED: chlordiazePOXIDE HCL 25 MG CAPSULE PO ONE (12:42)
[2020-09-01 12:44] LABS: ANISOCYTOSIS 2+; MACROCYTOSIS 0; OVALOCYTE 2+; PLATELET ESTIMATE NORMAL; TARGET CELLS 1+; TEAR DROP CELLS 1+
[2020-09-01] MEDS ORDERED: chlordiazePOXIDE HCL 25 MG CAPSULE ONE (13:17)
[2020-09-02 03:29] VITALS: BMI 34.7
[2020-09-02] MEDS ORDERED: ALBUTEROL SO4 HFA INHALER IH PRN (07:58)
[2020-09-02] MEDS: TIOTROPIUM BROMIDE 2.5 MCG (SPIRIVA) RESPIMAT INHALER IH SCH (10:00)
[2020-09-02] MEDS: FERROUS SO4 325 MG TABLET (FP) PO SCH ×2 (10:01→10:17)
[2020-09-02] MEDS: FOLIC ACID 1 MG TABLET (FP) PO SCH ×2 (10:01→10:18)
[2020-09-02] MEDS: MULTIVITAMINS (DAILY MVI) TABLET (FP) PO SCH ×2 (10:01→10:18)
[2020-09-02] MEDS: BUDESONIDE/FORMETEROL FUMARATE 160/4.5 mcg INHALER IH SCH ×2 (10:01→21:32)
[2020-09-02] MEDS: THIAMINE HCL 100 MG TABLET (FP) PO SCH ×2 (10:01→10:18)
[2020-09-02] MEDS: ENOXAPARIN NA (PORCINE) 40 MG/0.4 ML DISP.SYRIN SQ SCH ×2 (10:01→10:18)
[2020-09-02] MEDS: amLODIPine BESYLATE 5 MG TABLET (FP) PO SCH (10:02)
[2020-09-02] MEDS ORDERED: chlordiazePOXIDE HCL 25 MG CAPSULE PO ONE (14:45)
[2020-09-03 07:57] LABS: BASO % 0.6 % (0-2.0); EOS % 2.8 % (0-4.5); HEMATOCRIT 33.4 % (35.4-49); HEMOGLOBIN 10.7 GM/dL (11.7-16.9); LYMPH % 18.9 % (8-40); MCHC 31.9 g/dl (32.0-35.9); MEAN CELL VOLUME 78.2 fl (80-96); MEAN PLT VOLUME 8.1 fl (7.5-11.1); MONO % 9.7 % (3.8-10.2); PLATELET COUNT 191 K/MM3 (134-434); RBC 4.28 M/mm3 (4.00-5.60); RDW 24.6 % (11.9-15.9); WHITE BLOOD COUNT 5.6 K/mm3 (4.0-10.0)
[2020-09-03 08:15] LABS: CHLORIDE 104 mmol/L (98-107); POTASSIUM 3.5 mmol/L (3.5-5.1); SODIUM 138 mmol/L (136-145)
[2020-09-03 08:20] LABS: CALCIUM 8.8 mg/dL (8.5-10.1)
[2020-09-03 08:21] LABS: ALBUMIN 3.2 g/dl (3.4-5.0); ANION GAP 4 MMOL/L (8-16); BLOOD UREA NITROGEN 7.4 mg/dL (7-18); CO2 29 mmol/L (21-32); GLUCOSE,RANDOM 96 mg/dL (74-106)
[2020-09-03 08:24] LABS: CREATININE 0.5 mg/dL (0.55-1.3); SGOT/AST 17 U/L (15-37); SGPT/ALT 25 U/L (13-61)
[2020-09-03 08:26] LABS: ALK PHOS 115 U/L (45-117); BILIRUBIN,TOTAL 0.9 mg/dL (0.2-1)
[2020-09-03] MEDS: FERROUS SO4 325 MG TABLET (FP) PO SCH (09:40)
[2020-09-03] MEDS: amLODIPine BESYLATE 5 MG TABLET (FP) PO SCH (09:41)
[2020-09-03] MEDS: FOLIC ACID 1 MG TABLET (FP) PO SCH (09:41)
[2020-09-03] MEDS: THIAMINE HCL 100 MG TABLET (FP) PO SCH (09:42)
[2020-09-03] MEDS: ENOXAPARIN NA (PORCINE) 40 MG/0.4 ML DISP.SYRIN SQ SCH (09:42)
[2020-09-03] MEDS: TIOTROPIUM BROMIDE 2.5 MCG (SPIRIVA) RESPIMAT INHALER IH SCH (09:42)
[2020-09-03] MEDS: MULTIVITAMINS (DAILY MVI) TABLET (FP) PO SCH (09:42)
[2020-09-03] MEDS: BUDESONIDE/FORMETEROL FUMARATE 160/4.5 mcg INHALER IH SCH ×2 (09:42→22:12)
[2020-09-03] MEDS ORDERED: chlordiazePOXIDE HCL 10 MG CAPSULE PO SCH (10:00)
[2020-09-03] MEDS ORDERED: LORazepam 0.5 MG TABLET PO PRN (19:53)
[2020-09-03] MEDS: LORazepam 1 MG TABLET PO SCH (22:11)
[2020-09-04] MEDS: LORazepam 1 MG TABLET PO SCH ×3 (05:25→17:17)
[2020-09-04] MEDS: amLODIPine BESYLATE 5 MG TABLET (FP) PO SCH (10:08)
[2020-09-04] MEDS: ENOXAPARIN NA (PORCINE) 40 MG/0.4 ML DISP.SYRIN SQ SCH (10:10)
[2020-09-04] MEDS: FERROUS SO4 325 MG TABLET (FP) PO SCH (10:10)
[2020-09-04] MEDS: TIOTROPIUM BROMIDE 2.5 MCG (SPIRIVA) RESPIMAT INHALER IH SCH (10:10)
[2020-09-04] MEDS: FOLIC ACID 1 MG TABLET (FP) PO SCH (10:10)
[2020-09-04] MEDS: BUDESONIDE/FORMETEROL FUMARATE 160/4.5 mcg INHALER IH SCH ×2 (10:11→22:25)
[2020-09-04] MEDS: THIAMINE HCL 100 MG TABLET (FP) PO SCH (10:11)
[2020-09-04] MEDS: MULTIVITAMINS (DAILY MVI) TABLET (FP) PO SCH (10:11)
[2020-09-04] MEDS ORDERED: ALBUTEROL SO4 HFA INHALER IH PRN (22:37)
[2020-09-04] MEDS ORDERED: LORazepam 0.5 MG TABLET PO PRN (22:37)
[2020-09-04] MEDS ORDERED: LORazepam 0.5 MG TABLET PO SCH (23:00)
[2020-09-05] MEDS: LORazepam 0.5 MG TABLET PO SCH ×4 (00:23→18:22)
[2020-09-05] MEDS ORDERED: LORazepam 0.5 MG TABLET PO ONE (05:00)
[2020-09-05] MEDS ORDERED: amLODIPine BESYLATE 5 MG TABLET (FP) PO SCH (10:00)
[2020-09-05] MEDS: THIAMINE HCL 100 MG TABLET (FP) PO SCH (10:49)
[2020-09-05] MEDS: MULTIVITAMINS (DAILY MVI) TABLET (FP) PO SCH (10:49)
[2020-09-05] MEDS: TIOTROPIUM BROMIDE 2.5 MCG (SPIRIVA) RESPIMAT INHALER IH SCH (10:50)
[2020-09-05] MEDS: ENOXAPARIN NA (PORCINE) 40 MG/0.4 ML DISP.SYRIN SQ SCH (10:50)
[2020-09-05] MEDS: FOLIC ACID 1 MG TABLET (FP) PO SCH (10:50)
[2020-09-05] MEDS: BUDESONIDE/FORMETEROL FUMARATE 160/4.5 mcg INHALER IH SCH ×2 (10:50→20:59)
[2020-09-05] MEDS: FERROUS SO4 325 MG TABLET (FP) PO SCH (10:50)
[2020-09-05] MEDS ORDERED: ALBUTEROL SO4 2.5/IPRATROPIUM 0.5 INH SOL 3 ML VIAL.NEB. NEB PRN (15:44)
[2020-09-06] MEDS ORDERED: LORazepam 0.5 MG TABLET PO ONE (05:00)
[2020-09-06] MEDS ORDERED: ACETAMINOPHEN 325 MG TABLET (FP) PO PRN (09:08)
[2020-09-06] MEDS: FOLIC ACID 1 MG TABLET (FP) PO SCH (10:01)
[2020-09-06] MEDS: FERROUS SO4 325 MG TABLET (FP) PO SCH (10:01)
[2020-09-06] MEDS: ENOXAPARIN NA (PORCINE) 40 MG/0.4 ML DISP.SYRIN SQ SCH (10:01)
[2020-09-06] MEDS: THIAMINE HCL 100 MG TABLET (FP) PO SCH (10:02)
[2020-09-06] MEDS: MULTIVITAMINS (DAILY MVI) TABLET (FP) PO SCH (10:02)
[2020-09-06] MEDS: BUDESONIDE/FORMETEROL FUMARATE 160/4.5 mcg INHALER IH SCH ×2 (10:08→21:10)
[2020-09-06] MEDS: TIOTROPIUM BROMIDE 2.5 MCG (SPIRIVA) RESPIMAT INHALER IH SCH (10:08)
[2020-09-07 08:37] LABS: BASO % 0.5 % (0-2.0); EOS % 3.3 % (0-4.5); HEMATOCRIT 33.7 % (35.4-49); HEMOGLOBIN 10.8 GM/dL (11.7-16.9); LYMPH % 24.2 % (8-40); MCH 25.1 pg (25.7-33.7); MEAN CELL VOLUME 78.3 fl (80-96); MEAN PLT VOLUME 7.9 fl (7.5-11.1); MONO % 8.5 % (3.8-10.2); NEUT % 63.5 % (42.8-82.8); PLATELET COUNT 296 K/MM3 (134-434); RDW 24.7 % (11.9-15.9); WHITE BLOOD COUNT 6.8 K/mm3 (4.0-10.0)
[2020-09-07 08:51] LABS: POTASSIUM 3.9 mmol/L (3.5-5.1)
[2020-09-07 09:04] LABS: BLOOD UREA NITROGEN 10.1 mg/dL (7-18)
[2020-09-07 09:06] LABS: CALCIUM 9.4 mg/dL (8.5-10.1)
[2020-09-07 09:07] LABS: CREATININE 0.5 mg/dL (0.55-1.3)
[2020-09-07 09:09] LABS: BILIRUBIN,TOTAL 1.3 mg/dL (0.2-1)
[2020-09-07] MEDS: FERROUS SO4 325 MG TABLET (FP) PO SCH (09:28)
[2020-09-07] MEDS: BUDESONIDE/FORMETEROL FUMARATE 160/4.5 mcg INHALER IH SCH (09:31)
[2020-09-07] MEDS: ENOXAPARIN NA (PORCINE) 40 MG/0.4 ML DISP.SYRIN SQ SCH (09:31)
[2020-09-07] MEDS: TIOTROPIUM BROMIDE 2.5 MCG (SPIRIVA) RESPIMAT INHALER IH SCH (09:31)
[2020-09-07] MEDS: FOLIC ACID 1 MG TABLET (FP) PO SCH (09:31)
[2020-09-07] MEDS: MULTIVITAMINS (DAILY MVI) TABLET (FP) PO SCH (09:32)
[2020-09-07] MEDS: THIAMINE HCL 100 MG TABLET (FP) PO SCH (09:32)
[2020-09-07 10:24] VITALS: BP 127/67; PULSE 80; TEMP 98.8
[2020-09-07 13:19] LABS: ANISOCYTOSIS 0; MACROCYTOSIS 0; OVALOCYTE 1+; PLATELET ESTIMATE NORMAL
== END 2020-09-07 10:15 | DRG 203 ==
LOC: JER 07:47 → JERBED 12:40 → OBSVTOIN 12:40 → J4S 09-02 01:04 → J5S 09-04 18:49
PROVIDERS: ADMIT Internal Medicine; ATTEND Internal Medicine
PROC: HZ2ZZZZ Detoxification Services for Substance Abuse Treatment (ICD-10-PCS; principal; 2020-09-01)
DX: R07.89 Other chest pain (principal); R06.02 Shortness of breath; I10 Essential (primary) hypertension; E78.5 Hyperlipidemia, unspecified; M54.5 Low back pain; K21.9 Gastro-esophageal reflux disease without esophagitis; C45.9 Mesothelioma, unspecified; R42 Dizziness and giddiness; F10.230 Alcohol dependence with withdrawal, uncomplicated; E66.9 Obesity, unspecified; Z68.34 Body mass index [BMI] 34.0-34.9, adult; D64.9 Anemia, unspecified; I27.20 Pulmonary hypertension, unspecified; R45.1 Restlessness and agitation; F41.9 Anxiety disorder, unspecified; I77.819 Aortic ectasia, unspecified site
CPT/HCPCS: 36415; 71275-TC; 80053; 82550; 83735; 83880; 84484; 85025; 85610; 85730; 93005; 93010; 97116-GP; 97161-GP; 99285-25; C9803; Q9967; U0003

== ENCOUNTER 2020-09-07 20:16 | Emergency (ER) | payer OTHER ==
[2020-09-07 20:28] VITALS: PULSE 89; TEMP 98.2; BMI 25.1
[2020-09-08 04:58] VITALS: BP 108/72
== END 2020-09-08 06:25 | disposition home or self-care (01) ==
LOC: JER 20:16
DX: F10.920 Alcohol use, unspecified with intoxication, uncomplicated (principal)
CPT/HCPCS: 99281-25

== ENCOUNTER 2020-09-08 16:00 | Emergency (ER) | payer OTHER ==
[2020-09-08 20:18] VITALS: BP 128/72; PULSE 88; TEMP 98; BMI 28.7
== END 2020-09-08 20:33 | disposition home or self-care (01) ==
LOC: JER 16:00
DX: R06.02 Shortness of breath (principal); M54.5 Low back pain
CPT/HCPCS: 71046-TC-FY; 99283-25

== ENCOUNTER 2020-09-09 15:38 | Emergency (ER) | payer OTHER ==
[2020-09-09 15:54] VITALS: BMI 30.1
[2020-09-10 05:17] VITALS: BP 100/72; PULSE 86; TEMP 97.6
== END 2020-09-10 05:18 | disposition home or self-care (01) ==
LOC: JER 15:38
DX: F10.99 Alcohol use, unspecified with unspecified alcohol-induced disorder (principal); M54.5 Low back pain
CPT/HCPCS: 99284-25

== ENCOUNTER 2020-09-10 18:29 | Emergency (ER) | payer OTHER ==
[2020-09-10 18:47] VITALS: BMI 35.9
[2020-09-10] MEDS ORDERED: chlordiazePOXIDE HCL 25 MG CAPSULE PO ONE (19:36)
[2020-09-10] MEDS ORDERED: ACETAMINOPHEN 500 MG TABLET (FP) ONE (19:37)
[2020-09-10] MEDS ORDERED: ACETAMINOPHEN 500 MG TABLET (FP) PO ONE (19:37)
[2020-09-10] MEDS ORDERED: chlordiazePOXIDE HCL 25 MG CAPSULE ONE (19:39)
[2020-09-11 06:28] VITALS: BP 139/93; PULSE 92; TEMP 98
== END 2020-09-11 06:28 ==
LOC: JER 18:29
DX: M54.5 Low back pain (principal); F10.920 Alcohol use, unspecified with intoxication, uncomplicated
CPT/HCPCS: 99283-25

== ENCOUNTER 2020-09-21 21:52 | Emergency (ER) | payer OTHER ==
[2020-09-21 21:59] VITALS: BMI 33.0
[2020-09-22] MEDS ORDERED: ACETAMINOPHEN 325 MG TABLET (FP) PO ONE (10:45)
[2020-09-22 11:17] VITALS: BP 107/57; PULSE 90; TEMP 98.6
== END 2020-09-22 11:17 | disposition home or self-care (01) ==
LOC: JER 21:52
DX: F10.920 Alcohol use, unspecified with intoxication, uncomplicated (principal)
CPT/HCPCS: 99283-25

== ENCOUNTER 2020-09-23 10:23 | Emergency (ER) | payer OTHER ==
[2020-09-23 10:35] VITALS: BMI 69.5
[2020-09-23 14:37] VITALS: BP 115/69; PULSE 72; TEMP 98
== END 2020-09-23 14:40 | disposition home or self-care (01) ==
LOC: JER 10:23
DX: M79.10 Myalgia, unspecified site (principal)
CPT/HCPCS: 99284-25

== ENCOUNTER 2020-09-23 17:53 | Emergency (ER) | payer OTHER ==
[2020-09-23 18:22] VITALS: BP 108/70; PULSE 94; TEMP 97; BMI 31.5
== END 2020-09-23 21:46 | disposition left against medical advice (07) ==
LOC: JER 17:53
DX: F19.90 Other psychoactive substance use, unspecified, uncomplicated (principal)
CPT/HCPCS: 99283-25

== ENCOUNTER 2020-09-24 23:24 | Emergency (ER) | payer OTHER ==
[2020-09-25 00:53] VITALS: BMI 35.9
[2020-09-25] MEDS ORDERED: ACETAMINOPHEN 500 MG TABLET (FP) PO ONE (01:39)
[2020-09-25] MEDS ORDERED: ACETAMINOPHEN 325 MG TABLET (FP) ONE (01:44)
[2020-09-25 06:15] VITALS: BP 110/79; PULSE 88; TEMP 97.7
[2020-09-25] MEDS ORDERED: METHOCARBAMOL 750 MG TABLET PO ONE (06:17)
[2020-09-25] MEDS ORDERED: LIDOCAINE 5% TOPICAL PATCH TP ONE (06:18)
[2020-09-25] MEDS ORDERED: METHOCARBAMOL 500 MG TABLET ONE (06:20)
[2020-09-25] MEDS ORDERED: LIDOCAINE 5% TOPICAL PATCH ONE (06:21)
[2020-09-25] MEDS ORDERED: LIDOCAINE PATCH REMOVAL MC SCH (22:00)
== END 2020-09-25 06:32 ==
LOC: JER 23:24
DX: M54.5 Low back pain (principal)
CPT/HCPCS: 99283-25

== ENCOUNTER 2020-09-29 13:46 | Emergency (ER) | payer OTHER ==
[2020-09-29 13:58] VITALS: TEMP 98.2; BMI 38.2
[2020-09-29 18:01] VITALS: BP 124/88; PULSE 80
== END 2020-09-29 18:02 | disposition home or self-care (01) ==
LOC: JER 13:46
DX: M54.5 Low back pain (principal)
CPT/HCPCS: 99283-25

== ENCOUNTER 2020-09-29 19:32 | Emergency (ER) | payer OTHER ==
[2020-09-29 19:54] VITALS: BP 104/76; PULSE 90; TEMP 98.9; BMI 36.6
== END 2020-09-30 06:06 | disposition home or self-care (01) ==
LOC: JER 19:32
DX: F10.920 Alcohol use, unspecified with intoxication, uncomplicated (principal)
CPT/HCPCS: 99283-25

== ENCOUNTER 2020-09-30 10:54 | Emergency (ER) | payer OTHER ==
[2020-09-30 11:03] VITALS: BMI 38.2
[2020-09-30] MEDS ORDERED: chlordiazePOXIDE HCL 25 MG CAPSULE PO PRN (11:12)
[2020-09-30] MEDS ORDERED: chlordiazePOXIDE HCL 25 MG CAPSULE ONE (14:02)
[2020-09-30 14:22] LABS: HEMATOCRIT 36.7 % (35.4-49); HEMOGLOBIN 11.7 GM/dL (11.7-16.9); LYMPH % 23.5 % (8-40); MCH 25.4 pg (25.7-33.7); MCHC 31.7 g/dl (32.0-35.9); MEAN CELL VOLUME 79.9 fl (80-96); MEAN PLT VOLUME 7.9 fl (7.5-11.1); MONO % 6.2 % (3.8-10.2); NEUT % 67.3 % (42.8-82.8); PLATELET COUNT 236 K/MM3 (134-434); RDW 23.4 % (11.9-15.9); WHITE BLOOD COUNT 6.3 K/mm3 (4.0-10.0)
[2020-09-30 14:27] LABS: CHLORIDE 108 mmol/L (98-107); SODIUM 146 mmol/L (136-145)
[2020-09-30 14:29] LABS: ALBUMIN 3.1 g/dl (3.4-5.0); ANION GAP 10 MMOL/L (8-16); CALCIUM 8.6 mg/dL (8.5-10.1); CO2 28 mmol/L (21-32); GLUCOSE,RANDOM 76 mg/dL (74-106)
[2020-09-30 14:32] LABS: CREATININE 0.6 mg/dL (0.55-1.3); SGOT/AST 24 U/L (15-37); SGPT/ALT 24 U/L (13-61)
[2020-09-30 14:34] LABS: BILIRUBIN,TOTAL 0.6 mg/dL (0.2-1); TOT PROT 6.5 g/dl (6.4-8.2)
[2020-09-30 14:35] LABS: ALK PHOS 141 U/L (45-117)
[2020-09-30 14:37] VITALS: BP 112/56; PULSE 82; TEMP 98.2
[2020-09-30 14:37] LABS: N-TERMINAL BNP 49.1 pg/ml (5-125)
[2020-09-30] MEDS ORDERED: FUROSEMIDE 20 MG TABLET (FP) PO PRN (15:08)
[2020-09-30] MEDS ORDERED: IBUPROFEN 400 MG TABLET (FP) PO ONE ×2 (15:10→15:16)
[2020-09-30] MEDS ORDERED: FUROSEMIDE 40 MG TABLET (FP) ONE (15:46)
== END 2020-09-30 16:20 | disposition home or self-care (01) ==
LOC: JER 10:54
DX: R22.33 Localized swelling, mass and lump, upper limb, bilateral (principal); R22.43 Localized swelling, mass and lump, lower limb, bilateral
CPT/HCPCS: 36415; 80053; 82550; 83880; 84484; 85025; 99283-25

== ENCOUNTER 2020-10-01 13:50 | Emergency (ER) | payer OTHER ==
[2020-10-01 14:27] VITALS: BP 118/75; PULSE 76; TEMP 97.6; BMI 33.0
[2020-10-01] MEDS ORDERED: LIDOCAINE 5% TOPICAL PATCH TP ONE (15:37)
[2020-10-01] MEDS ORDERED: ACETAMINOPHEN 500 MG TABLET (FP) PO ONE (15:37)
[2020-10-01] MEDS ORDERED: LIDOCAINE 5% TOPICAL PATCH ONE (16:19)
[2020-10-01] MEDS ORDERED: LIDOCAINE PATCH REMOVAL MC SCH (22:00)
== END 2020-10-01 16:00 | disposition left against medical advice (07) ==
LOC: JER 13:50
DX: M54.5 Low back pain (principal)
CPT/HCPCS: 99283-25

== ENCOUNTER 2020-10-01 20:40 | Emergency (ER) | payer OTHER ==
[2020-10-01 20:49] VITALS: TEMP 97.6; BMI 36.9
[2020-10-01] MEDS ORDERED: NAPROXEN 500 MG TABLET PO ONE (22:37)
[2020-10-01] MEDS ORDERED: NAPROXEN 500 MG TABLET ONE (22:51)
[2020-10-02 06:52] VITALS: BP 122/86; PULSE 68
== END 2020-10-02 06:52 | disposition home or self-care (01) ==
LOC: JER 20:40
DX: M54.5 Low back pain (principal)
CPT/HCPCS: 99283-25

== ENCOUNTER 2020-10-02 20:58 | Emergency (ER) | payer OTHER ==
[2020-10-02 21:18] VITALS: PULSE 70; BMI 29.1
[2020-10-03 06:58] VITALS: BP 132/81; TEMP 98.4
== END 2020-10-03 07:30 | disposition home or self-care (01) ==
LOC: JER 20:58
DX: M54.5 Low back pain (principal)
CPT/HCPCS: 99283-25

== ENCOUNTER 2020-10-03 13:28 | Emergency (ER) | payer OTHER ==
[2020-10-03 13:59] VITALS: BP 117/75; PULSE 70; TEMP 98.1; BMI 29.9
[2020-10-03] MEDS ORDERED: ACETAMINOPHEN 500 MG TABLET (FP) PO ONE (15:48)
[2020-10-03] MEDS ORDERED: IBUPROFEN 600 MG TABLET (FP) PO ONE (15:49)
== END 2020-10-03 17:05 | disposition left against medical advice (07) ==
LOC: JER 13:28
DX: M54.5 Low back pain (principal)
CPT/HCPCS: 99283-25

== ENCOUNTER 2020-10-05 18:46 | Emergency (ER) | payer OTHER ==
[2020-10-05 19:02] VITALS: PULSE 89; TEMP 97.9; BMI 41.5
[2020-10-05] MEDS ORDERED: METHOCARBAMOL 500 MG TABLET PO ONE (19:52)
[2020-10-05] MEDS ORDERED: METHOCARBAMOL 500 MG TABLET ONE (20:06)
[2020-10-05 20:33] VITALS: BP 126/72
== END 2020-10-05 20:31 | disposition home or self-care (01) ==
LOC: JER 18:46
DX: M54.5 Low back pain (principal)
CPT/HCPCS: 99283-25

== ENCOUNTER 2020-10-06 09:39 | Inpatient (IN) | payer OTHER ==
[2020-10-06 12:05] VITALS: BMI 37.1
[2020-10-06] MEDS ORDERED: MAGNESIUM HYDROX 2400MG/30ML ORAL SUSPENSION 30 ML CUP PO PRN (12:37)
[2020-10-06] MEDS ORDERED: MAGNESIUM CITRATE 300 ML BOTTLE PO PRN (12:37)
[2020-10-06] MEDS ORDERED: BISMUTH SUBSALICYLATE 524 MG/30 ML UD PO PRN (12:37)
[2020-10-06] MEDS ORDERED: ONDANSETRON *ODT* 4 MG TABLET SL PRN (12:37)
[2020-10-06] MEDS ORDERED: MENTHOL/PHENOL 1 EACH UD MM PRN (12:37)
[2020-10-06] MEDS ORDERED: IBUPROFEN 400 MG TABLET (FP) PO PRN (12:37)
[2020-10-06] MEDS ORDERED: ACETAMINOPHEN 325 MG TABLET (FP) PO PRN ×2 (12:37)
[2020-10-06] MEDS ORDERED: chlordiazePOXIDE HCL 25 MG CAPSULE PO PRN (12:37)
[2020-10-06] MEDS ORDERED: chlordiazePOXIDE HCL 25 MG CAPSULE PO ONE (12:37)
[2020-10-06] MEDS ORDERED: MAG HYDROX/AL HYDROX/SIMETH 30 ML UNIT-DOSE CUP PO PRN (12:37)
[2020-10-06] MEDS ORDERED: NICOTINE POLACRILEX 2 MG GUM BUC PRN (12:37)
[2020-10-06] MEDS ORDERED: ALBUTEROL SO4 HFA INHALER IH PRN (12:39)
[2020-10-06] MEDS: BACITRACIN 15 GM TUBE TOPICAL OINTMENT TP SCH (15:19)
[2020-10-06] MEDS: hydrOXYzine PAMOATE 25 MG CAPSULE (FP) PO SCH ×3 (15:19→23:08)
[2020-10-06] MEDS: FERROUS SO4 325 MG TABLET (FP) PO SCH ×2 (15:20→23:06)
[2020-10-06] MEDS: PRENATAL VITAMINS W/ FOLIC ACID TABLET (FP) PO SCH (15:20)
[2020-10-06] MEDS: FOLIC ACID 1 MG TABLET (FP) PO SCH (15:20)
[2020-10-06] MEDS: FUROSEMIDE 40 MG TABLET (FP) PO SCH (15:20)
[2020-10-06] MEDS: chlordiazePOXIDE HCL 25 MG CAPSULE PO SCH ×2 (18:42→23:07)
[2020-10-06] MEDS: METHOCARBAMOL 500 MG TABLET PO PRN (18:43)
[2020-10-06] MEDS: BUDESONIDE/FORMETEROL FUMARATE 160/4.5 mcg INHALER IH SCH (23:07)
[2020-10-06] MEDS: MELATONIN 5 MG TABLETS PO SCH (23:07)
[2020-10-06] MEDS: THIAMINE HCL 100 MG TABLET (FP) PO SCH (23:08)
[2020-10-07] MEDS: chlordiazePOXIDE HCL 25 MG CAPSULE PO SCH ×4 (06:43→23:21)
[2020-10-07] MEDS: hydrOXYzine PAMOATE 25 MG CAPSULE (FP) PO SCH ×5 (06:44→23:14)
[2020-10-07 10:39] LABS: HEMATOCRIT 34.7 % (35.4-49); HEMOGLOBIN 11.3 GM/dL (11.7-16.9); MCH 25.8 pg (25.7-33.7); MCHC 32.5 g/dl (32.0-35.9); MEAN CELL VOLUME 79.4 fl (80-96); MEAN PLT VOLUME 7.7 fl (7.5-11.1); PLATELET COUNT 152 K/MM3 (134-434); RBC 4.37 M/mm3 (4.00-5.60); WHITE BLOOD COUNT 5.9 K/mm3 (4.0-10.0)
[2020-10-07 10:53] LABS: CHLORIDE 99 mmol/L (98-107); SODIUM 140 mmol/L (136-145)
[2020-10-07 10:56] LABS: CALCIUM 8.7 mg/dL (8.5-10.1)
[2020-10-07 10:57] LABS: ALBUMIN 3.2 g/dl (3.4-5.0); BLOOD UREA NITROGEN 6.9 mg/dL (7-18); CO2 34 mmol/L (21-32); GLUCOSE,RANDOM 72 mg/dL (74-106)
[2020-10-07 11:00] LABS: CREATININE 0.6 mg/dL (0.55-1.3); SGOT/AST 30 U/L (15-37); SGPT/ALT 21 U/L (13-61)
[2020-10-07 11:02] LABS: BILIRUBIN,TOTAL 1.8 mg/dL (0.2-1); TOT PROT 6.4 g/dl (6.4-8.2)
[2020-10-07 11:03] LABS: ALK PHOS 132 U/L (45-117)
[2020-10-07 11:25] LABS: ANION GAP 7 MMOL/L (8-16)
[2020-10-07] MEDS: METHOCARBAMOL 500 MG TABLET PO PRN ×2 (11:37→17:36)
[2020-10-07] MEDS: BACITRACIN 15 GM TUBE TOPICAL OINTMENT TP SCH (11:38)
[2020-10-07] MEDS: FERROUS SO4 325 MG TABLET (FP) PO SCH ×2 (11:38→23:14)
[2020-10-07] MEDS: FOLIC ACID 1 MG TABLET (FP) PO SCH (11:38)
[2020-10-07] MEDS: PRENATAL VITAMINS W/ FOLIC ACID TABLET (FP) PO SCH (11:39)
[2020-10-07] MEDS: FUROSEMIDE 40 MG TABLET (FP) PO SCH (11:39)
[2020-10-07] MEDS: amLODIPine BESYLATE 5 MG TABLET (FP) PO SCH (11:39)
[2020-10-07] MEDS: BUDESONIDE/FORMETEROL FUMARATE 160/4.5 mcg INHALER IH SCH ×2 (11:40→23:14)
[2020-10-07] MEDS: TIOTROPIUM BROMIDE 2.5 MCG (SPIRIVA) RESPIMAT INHALER IH SCH (11:40)
[2020-10-07] MEDS ORDERED: POTASSIUM CHLORIDE ORAL LIQUID 20 MEQ/15 ML PO ONE ×3 (11:56→22:00)
[2020-10-07] MEDS: MELATONIN 5 MG TABLETS PO SCH (23:14)
[2020-10-07] MEDS: THIAMINE HCL 100 MG TABLET (FP) PO SCH (23:15)
[2020-10-08] MEDS: METHOCARBAMOL 500 MG TABLET PO PRN (06:15)
[2020-10-08] MEDS: chlordiazePOXIDE HCL 25 MG CAPSULE PO SCH ×2 (06:16→10:41)
[2020-10-08] MEDS: hydrOXYzine PAMOATE 25 MG CAPSULE (FP) PO SCH ×2 (07:06→10:41)
[2020-10-08 08:56] VITALS: BP 125/66; PULSE 80; TEMP 97
[2020-10-08] MEDS ORDERED: POTASSIUM CHLORIDE TABS 20 MEQ TABLET.ER (FP) PO SCH (10:00)
[2020-10-08] MEDS: FOLIC ACID 1 MG TABLET (FP) PO SCH (10:40)
[2020-10-08] MEDS: FUROSEMIDE 40 MG TABLET (FP) PO SCH (10:40)
[2020-10-08] MEDS: FERROUS SO4 325 MG TABLET (FP) PO SCH (10:40)
[2020-10-08] MEDS: BACITRACIN 15 GM TUBE TOPICAL OINTMENT TP SCH (10:40)
[2020-10-08] MEDS: TIOTROPIUM BROMIDE 2.5 MCG (SPIRIVA) RESPIMAT INHALER IH SCH (10:41)
[2020-10-08] MEDS: BUDESONIDE/FORMETEROL FUMARATE 160/4.5 mcg INHALER IH SCH (10:41)
[2020-10-08] MEDS: PRENATAL VITAMINS W/ FOLIC ACID TABLET (FP) PO SCH (10:41)
[2020-10-08] MEDS: amLODIPine BESYLATE 5 MG TABLET (FP) PO SCH (10:41)
[2020-10-09] MEDS ORDERED: chlordiazePOXIDE HCL 10 MG CAPSULE PO PRN
[2020-10-09] MEDS ORDERED: chlordiazePOXIDE HCL 10 MG CAPSULE PO SCH (05:00)
[2020-10-10] MEDS ORDERED: chlordiazePOXIDE HCL 10 MG CAPSULE PO SCH (05:00)
[2020-10-11] MEDS ORDERED: chlordiazePOXIDE HCL 10 MG CAPSULE PO ONE (05:00)
== END 2020-10-08 10:52 | disposition left against medical advice (07) | DRG 770 ==
LOC: YASAS 09:39 → Y3N 14:35
PROVIDERS: ADMIT Allergy & Immunology; ATTEND Allergy & Immunology
PROC: HZ2ZZZZ Detoxification Services for Substance Abuse Treatment (ICD-10-PCS; principal; 2020-10-06)
DX: F10.230 Alcohol dependence with withdrawal, uncomplicated (principal); D64.9 Anemia, unspecified; C45.9 Mesothelioma, unspecified; I10 Essential (primary) hypertension; J44.9 Chronic obstructive pulmonary disease, unspecified; K21.9 Gastro-esophageal reflux disease without esophagitis; M79.89 Other specified soft tissue disorders; M54.5 Low back pain; G89.29 Other chronic pain; M25.562 Pain in left knee; R60.0 Localized edema; E66.9 Obesity, unspecified; Z68.37 Body mass index [BMI] 37.0-37.9, adult; Z59.0 Homelessness
CPT/HCPCS: 36415; 80053; 85027; 86780; 99283-25; C9803; U0003; U0005

== ENCOUNTER 2020-10-08 16:11 | Emergency (ER) | payer OTHER ==
[2020-10-08 16:42] VITALS: BP 140/90; PULSE 96; TEMP 97.9; BMI 48.4
== END 2020-10-08 18:30 | disposition home or self-care (01) ==
LOC: JER 16:11
DX: M54.9 Dorsalgia, unspecified (principal); F10.10 Alcohol abuse, uncomplicated
CPT/HCPCS: 99283-25

== ENCOUNTER 2020-10-11 13:43 | Emergency (ER) | payer OTHER ==
[2020-10-11 13:53] VITALS: BP 122/81; PULSE 89; TEMP 98.2; BMI 30.1
== END 2020-10-11 18:36 | disposition home or self-care (01) ==
LOC: JER 13:43
DX: F10.10 Alcohol abuse, uncomplicated (principal)
CPT/HCPCS: 99281-25

== ENCOUNTER 2020-10-16 19:11 | Emergency (ER) | payer OTHER ==
[2020-10-16 20:04] VITALS: BP 105/70; PULSE 89; TEMP 98.5; BMI 30.4
[2020-10-16] MEDS ORDERED: ACETAMINOPHEN 325 MG TABLET (FP) PO ONE (21:38)
[2020-10-16] MEDS ORDERED: ACETAMINOPHEN 325 MG TABLET (FP) ONE (21:51)
== END 2020-10-17 01:22 | disposition home or self-care (01) ==
LOC: JER 19:11
DX: M54.5 Low back pain (principal)
CPT/HCPCS: 99283-25

== ENCOUNTER 2020-10-18 13:53 | Emergency (ER) | payer OTHER ==
[2020-10-18 14:08] VITALS: BP 130/76; PULSE 84; TEMP 98.4; BMI 35.9
[2020-10-18 17:59] LABS: EOS % 2.7 % (0-4.5); HEMATOCRIT 35.2 % (35.4-49); LYMPH % 30.5 % (8-40); MCH 25.7 pg (25.7-33.7); MCHC 31.3 g/dl (32.0-35.9); MEAN CELL VOLUME 82.1 fl (80-96); MEAN PLT VOLUME 7.2 fl (7.5-11.1); MONO % 8.3 % (3.8-10.2); NEUT % 57.5 % (42.8-82.8); PLATELET COUNT 285 K/MM3 (134-434); RBC 4.29 M/mm3 (4.00-5.60); RDW 22.9 % (11.9-15.9); WHITE BLOOD COUNT 6.1 K/mm3 (4.0-10.0)
[2020-10-18 18:28] LABS: CALCIUM 8.3 mg/dL (8.5-10.1)
[2020-10-18 18:29] LABS: ALBUMIN 3.3 g/dl (3.4-5.0); BLOOD UREA NITROGEN 6.8 mg/dL (7-18); MAGNESIUM 1.4 mg/dL (1.8-2.4)
[2020-10-18 18:32] LABS: CREATININE 0.7 mg/dL (0.55-1.3)
[2020-10-18 18:34] LABS: BILIRUBIN,TOTAL 0.5 mg/dL (0.2-1); TOT PROT 6.8 g/dl (6.4-8.2)
[2020-10-18 18:45] LABS: ANISOCYTOSIS 3+; MACROCYTOSIS 2+
== END 2020-10-18 19:23 | disposition left against medical advice (07) ==
LOC: JER 13:53
DX: R60.9 Edema, unspecified (principal)
CPT/HCPCS: 36415; 80053; 83735; 85025; 99284-25

== ENCOUNTER 2020-10-18 21:02 | Emergency (ER) | payer OTHER ==
[2020-10-19 06:52] VITALS: BMI 37.3
[2020-10-19] MEDS ORDERED: AZITHROMYCIN 250 MG TABLET PO ONE (10:24)
[2020-10-19] MEDS ORDERED: AZITHROMYCIN 250 MG TABLET ONE (11:02)
[2020-10-19 11:54] LABS: BASO % 1.3 % (0-2.0); EOS % 3.1 % (0-4.5); HEMATOCRIT 33.5 % (35.4-49); HEMOGLOBIN 10.8 GM/dL (11.7-16.9); MCH 25.9 pg (25.7-33.7); MCHC 32.1 g/dl (32.0-35.9); MEAN CELL VOLUME 80.6 fl (80-96); MEAN PLT VOLUME 7.3 fl (7.5-11.1); MONO % 7.2 % (3.8-10.2); NEUT % 66.4 % (42.8-82.8); PLATELET COUNT 272 K/MM3 (134-434); RBC 4.16 M/mm3 (4.00-5.60); RDW 23.7 % (11.9-15.9); WHITE BLOOD COUNT 4.9 K/mm3 (4.0-10.0)
[2020-10-19 11:59] LABS: INR 1.05 (0.83-1.09); PROTHROMBIN TIME (PATIENT) 12.7 SEC (9.7-13.0)
[2020-10-19 12:02] LABS: ACTIVATED PTT 30.4 SECONDS (25.2-36.5)
[2020-10-19 12:15] LABS: CHLORIDE 106 mmol/L (98-107); SODIUM 144 mmol/L (136-145)
[2020-10-19 12:18] LABS: ALBUMIN 3.1 g/dl (3.4-5.0); ANION GAP 7 MMOL/L (8-16); BLOOD UREA NITROGEN 5.5 mg/dL (7-18); CO2 30 mmol/L (21-32); GLUCOSE,RANDOM 72 mg/dL (74-106); LIPASE 35 U/L (73-393)
[2020-10-19 12:21] LABS: CREATININE 0.6 mg/dL (0.55-1.3); SGOT/AST 30 U/L (15-37); SGPT/ALT 24 U/L (13-61)
[2020-10-19 12:22] LABS: BILIRUBIN,TOTAL 0.6 mg/dL (0.2-1); TOT PROT 6.2 g/dl (6.4-8.2)
[2020-10-19 12:23] LABS: ALK PHOS 116 U/L (45-117)
[2020-10-19 13:32] VITALS: BP 157/106; PULSE 104; TEMP 98
[2020-10-19] MEDS ORDERED: chlordiazePOXIDE HCL 25 MG CAPSULE PO ONE (13:57)
[2020-10-19] MEDS ORDERED: chlordiazePOXIDE HCL 25 MG CAPSULE ONE (13:58)
== END 2020-10-19 14:10 | disposition home or self-care (01) ==
LOC: JER 21:02
DX: J18.9 Pneumonia, unspecified organism (principal)
CPT/HCPCS: 36415; 71045-TC-FY; 80053; 82550; 83690; 84484; 85025; 85610; 85730; 93005; 93010; 99285-25

== ENCOUNTER 2020-10-20 00:19 | Emergency (ER) | payer OTHER ==
[2020-10-20 00:42] VITALS: BP 136/78; PULSE 89; TEMP 98.2; BMI 33.7
== END 2020-10-20 06:33 | disposition home or self-care (01) ==
LOC: JER 00:19
DX: M54.5 Low back pain (principal); G89.29 Other chronic pain; Z59.0 Homelessness
CPT/HCPCS: 99282-25

== ENCOUNTER 2020-10-23 16:12 | Emergency (ER) | payer OTHER ==
[2020-10-23 16:18] VITALS: BMI 33.0
[2020-10-24 06:09] VITALS: BP 130/75; PULSE 81; TEMP 99
== END 2020-10-24 06:54 | disposition home or self-care (01) ==
LOC: JER 16:12
DX: F10.10 Alcohol abuse, uncomplicated (principal); E66.9 Obesity, unspecified; G89.29 Other chronic pain
CPT/HCPCS: 99281-25

== ENCOUNTER 2020-10-24 17:57 | Emergency (ER) | payer OTHER ==
[2020-10-24 18:25] VITALS: BP 132/86; PULSE 88; BMI 33.0
[2020-10-24 19:39] VITALS: TEMP 98.1
== END 2020-10-24 23:35 | disposition left against medical advice (07) ==
LOC: JER 17:57
DX: M54.5 Low back pain (principal); G89.29 Other chronic pain; F10.920 Alcohol use, unspecified with intoxication, uncomplicated
CPT/HCPCS: 99281-25

== ENCOUNTER 2020-10-27 22:19 | Emergency (ER) | payer OTHER ==
[2020-10-27 22:25] VITALS: BMI 43.0
[2020-10-28 06:20] VITALS: BP 164/90; PULSE 97; TEMP 97.4
== END 2020-10-28 06:33 | disposition home or self-care (01) ==
LOC: JER 22:19
DX: F10.129 Alcohol abuse with intoxication, unspecified (principal)
CPT/HCPCS: 99281-25

== ENCOUNTER 2020-10-30 19:30 | Emergency (ER) | payer OTHER ==
[2020-10-30 19:45] VITALS: BP 112/70; PULSE 95; TEMP 97.9; BMI 35.9
[2020-10-30] MEDS ORDERED: LIDOCAINE 5% TOPICAL PATCH TP ONE (20:59)
[2020-10-30] MEDS ORDERED: ACETAMINOPHEN 325 MG TABLET (FP) PO ONE (20:59)
[2020-10-30] MEDS ORDERED: ACETAMINOPHEN 325 MG TABLET (FP) ONE (21:08)
[2020-10-30] MEDS ORDERED: LIDOCAINE 5% TOPICAL PATCH ONE (21:08)
[2020-10-30] MEDS ORDERED: LIDOCAINE PATCH REMOVAL MC SCH (22:00)
== END 2020-10-30 23:08 | disposition home or self-care (01) ==
LOC: JER 19:30
DX: M79.645 Pain in left finger(s) (principal); M25.561 Pain in right knee
CPT/HCPCS: 99283-25

== ENCOUNTER 2020-10-31 00:24 | Emergency (ER) | payer OTHER ==
[2020-10-31 00:28] VITALS: BP 141/77; PULSE 83; TEMP 98.1; BMI 35.9
== END 2020-10-31 06:16 | disposition home or self-care (01) ==
LOC: JER 00:24
DX: F10.10 Alcohol abuse, uncomplicated (principal); M54.5 Low back pain
CPT/HCPCS: 99281-25

== ENCOUNTER 2020-10-31 16:22 | Emergency (ER) | payer OTHER ==
[2020-10-31 16:42] VITALS: BP 97/61; PULSE 90; TEMP 98.1; BMI 34.1
[2020-10-31] MEDS ORDERED: ACETAMINOPHEN 325 MG TABLET (FP) PO ONE (19:42)
[2020-10-31] MEDS ORDERED: ACETAMINOPHEN 325 MG TABLET (FP) ONE (20:03)
== END 2020-10-31 21:58 | disposition left against medical advice (07) ==
LOC: JER 16:22
DX: F10.10 Alcohol abuse, uncomplicated (principal); M54.5 Low back pain; R06.02 Shortness of breath; G89.29 Other chronic pain; R06.00 Dyspnea, unspecified; R06.01 Orthopnea
CPT/HCPCS: 99283-25; 99285-25

== ENCOUNTER 2020-11-02 19:36 | Observation (INO) | payer OTHER ==
[2020-11-02 19:44] VITALS: BMI 33.0
[2020-11-03 03:05] LABS: BASO % 1.2 % (0-2.0); EOS % 3.9 % (0-4.5); HEMATOCRIT 32.3 % (35.4-49); HEMOGLOBIN 10.3 GM/dL (11.7-16.9); LYMPH % 34.9 % (8-40); MCH 26.2 pg (25.7-33.7); MCHC 31.9 g/dl (32.0-35.9); MEAN CELL VOLUME 82.3 fl (80-96); MEAN PLT VOLUME 7.8 fl (7.5-11.1); PLATELET COUNT 231 K/MM3 (134-434); RBC 3.93 M/mm3 (4.00-5.60); RDW 21.6 % (11.9-15.9); WHITE BLOOD COUNT 4.9 K/mm3 (4.0-10.0)
[2020-11-03 03:12] LABS: INR 0.99 (0.83-1.09)
[2020-11-03 03:14] LABS: ACTIVATED PTT 26.9 SECONDS (25.2-36.5)
[2020-11-03 03:23] LABS: CHLORIDE 101 mmol/L (98-107); SODIUM 143 mmol/L (136-145)
[2020-11-03 03:25] LABS: ALBUMIN 3.3 g/dl (3.4-5.0); BLOOD UREA NITROGEN 6.2 mg/dL (7-18); CALCIUM 8.1 mg/dL (8.5-10.1); CO2 34 mmol/L (21-32); GLUCOSE,RANDOM 80 mg/dL (74-106)
[2020-11-03 03:28] LABS: SGOT/AST 30 U/L (15-37); SGPT/ALT 23 U/L (13-61)
[2020-11-03 03:29] LABS: CREATININE 0.7 mg/dL (0.55-1.3)
[2020-11-03 03:30] LABS: BILIRUBIN,TOTAL 0.5 mg/dL (0.2-1); TOT PROT 6.4 g/dl (6.4-8.2)
[2020-11-03 03:31] LABS: ALK PHOS 105 U/L (45-117)
[2020-11-03 04:31] LABS: ANION GAP 8 MMOL/L (8-16)
[2020-11-03] MEDS ORDERED: POTASSIUM CHLORIDE TABS 20 MEQ TABLET.ER (FP) PO ONE ×4 (04:33→18:44)
[2020-11-03] MEDS ORDERED: ASPIRIN 81 MG CHEWABLE TABLETS ONE (04:40)
[2020-11-03] MEDS ORDERED: ASPIRIN 81 MG CHEWABLE TABLETS PO ONE (04:40)
[2020-11-03 09:05] LABS: ANISOCYTOSIS 1+; MACROCYTOSIS 0; PLATELET ESTIMATE NORMAL
[2020-11-03] MEDS ORDERED: ALBUTEROL SO4 HFA INHALER IH PRN (18:43)
[2020-11-03] MEDS: KCL 10 MEQ IVPB 10 MEQ/100 ML INFUS.BAG IVPB SCH ×3 (19:06→20:46)
[2020-11-03] MEDS: BUDESONIDE/FORMETEROL FUMARATE 160/4.5 mcg INHALER IH SCH (21:58)
[2020-11-04] MEDS ORDERED: amLODIPine BESYLATE 5 MG TABLET (FP) PO SCH (10:00)
[2020-11-04] MEDS ORDERED: FERROUS SO4 325 MG TABLET (FP) PO SCH (10:00)
[2020-11-04] MEDS ORDERED: THIAMINE HCL 100 MG TABLET (FP) PO SCH (10:00)
[2020-11-04] MEDS ORDERED: ENOXAPARIN NA (PORCINE) 40 MG/0.4 ML DISP.SYRIN SQ SCH (10:00)
[2020-11-04] MEDS ORDERED: MULTIVITAMINS (DAILY MVI) TABLET (FP) PO SCH (10:00)
[2020-11-04] MEDS ORDERED: FOLIC ACID 1 MG TABLET (FP) PO SCH (10:00)
[2020-11-04] MEDS ORDERED: POTASSIUM CHLORIDE TABS 20 MEQ TABLET.ER (FP) PO SCH (10:00)
[2020-11-04] MEDS ORDERED: TIOTROPIUM BROMIDE 2.5 MCG (SPIRIVA) RESPIMAT INHALER IH SCH (10:00)
[2020-11-04] MEDS: METHOCARBAMOL 500 MG TABLET PO SCH ×2 (10:24→21:40)
[2020-11-04] MEDS: BUDESONIDE/FORMETEROL FUMARATE 160/4.5 mcg INHALER IH SCH ×2 (11:07→21:41)
[2020-11-04] MEDS ORDERED: PT OWN MED DRAWER 7, Y5N ONE (12:14)
[2020-11-04 13:24] LABS: POTASSIUM PLASMA 2.8 mmol/L (3.5-5.1)
[2020-11-04 13:32] LABS: CALCIUM 8.3 mg/dL (8.5-10.1)
[2020-11-04 13:33] LABS: ALBUMIN 3.3 g/dl (3.4-5.0); BLOOD UREA NITROGEN 5.6 mg/dL (7-18)
[2020-11-04 13:36] LABS: CREATININE 0.6 mg/dL (0.55-1.3)
[2020-11-04 13:38] LABS: BILIRUBIN,TOTAL 1.2 mg/dL (0.2-1); TOT PROT 6.3 g/dl (6.4-8.2)
[2020-11-05] MEDS ORDERED: ALBUTEROL SO4 HFA INHALER IH PRN (01:09)
[2020-11-05 05:50] VITALS: BP 136/69; PULSE 83; TEMP 99.8
[2020-11-05] MEDS ORDERED: FOLIC ACID 1 MG TABLET (FP) PO SCH (10:00)
[2020-11-05] MEDS ORDERED: BUDESONIDE/FORMETEROL FUMARATE 160/4.5 mcg INHALER IH SCH (10:00)
[2020-11-05] MEDS ORDERED: FERROUS SO4 325 MG TABLET (FP) PO SCH (10:00)
[2020-11-05] MEDS ORDERED: METHOCARBAMOL 750 MG TABLET PO SCH ×2 (10:00)
[2020-11-05] MEDS ORDERED: TIOTROPIUM BROMIDE 2.5 MCG (SPIRIVA) RESPIMAT INHALER IH SCH (10:00)
[2020-11-05] MEDS ORDERED: METHOCARBAMOL 500 MG TABLET PO SCH (10:00)
[2020-11-05] MEDS ORDERED: THIAMINE HCL 100 MG TABLET (FP) PO SCH (10:00)
[2020-11-05] MEDS ORDERED: amLODIPine BESYLATE 5 MG TABLET (FP) PO SCH (10:00)
[2020-11-05] MEDS ORDERED: ENOXAPARIN NA (PORCINE) 40 MG/0.4 ML DISP.SYRIN SQ SCH (10:00)
[2020-11-05] MEDS ORDERED: MULTIVITAMINS (DAILY MVI) TABLET (FP) PO SCH (10:00)
== END 2020-11-05 11:52 | disposition home or self-care (01) ==
LOC: JER 19:36 → UNDOADMOB 11-03 04:39 → JERBED 11-03 04:39 → INTOOBSV 11-03 04:39 → J4W 11-03 15:12 → JERBED 11-03 15:12 → J4W 11-04 15:47 → J7W 11-04 15:47 → JERBED 11-05 07:42 → J7W 11-05 07:42 → J4W 11-05 07:42
PROVIDERS: ADMIT Internal Medicine; ATTEND Nurse Practitioner Acute Care
DX: F10.10 Alcohol abuse, uncomplicated (principal); C45.7 Mesothelioma of other sites; J44.9 Chronic obstructive pulmonary disease, unspecified; I10 Essential (primary) hypertension; F17.210 Nicotine dependence, cigarettes, uncomplicated; E87.6 Hypokalemia; Z86.16 Personal history of COVID-19; K21.9 Gastro-esophageal reflux disease without esophagitis; F41.9 Anxiety disorder, unspecified; G89.29 Other chronic pain; M54.5 Low back pain; R07.9 Chest pain, unspecified; Z91.013 Allergy to seafood; Z88.8 Allergy status to other drugs, medicaments and biological substances; E66.9 Obesity, unspecified; Z68.33 Body mass index [BMI] 33.0-33.9, adult; S39.82XA Other specified injuries of lower back, initial encounter
CPT/HCPCS: 36415; 71045-TC-FY; 80053; 80061; 83721; 84132; 84443; 84484; 85025; 85610; 85730; 99285-25; C9803; G0378; U0003; U0005

== ENCOUNTER 2020-11-06 15:53 | Emergency (ER) | payer OTHER ==
[2020-11-06 16:14] VITALS: BMI 33.7
[2020-11-06] MEDS ORDERED: ACETAMINOPHEN 325 MG TABLET (FP) PO ONE (16:29)
[2020-11-06 20:11] VITALS: BP 111/63; PULSE 99; TEMP 98.5
== END 2020-11-06 20:49 | disposition home or self-care (01) ==
LOC: JER 15:53
DX: M54.5 Low back pain (principal)
CPT/HCPCS: 99283-25

== ENCOUNTER 2020-11-07 00:31 | Emergency (ER) | payer OTHER ==
[2020-11-07 00:42] VITALS: TEMP 98.2; BMI 28.7
[2020-11-07 06:13] VITALS: BP 130/74; PULSE 81
== END 2020-11-07 06:13 | disposition home or self-care (01) ==
LOC: JER 00:31
DX: Z59.0 Homelessness (principal)
CPT/HCPCS: 99281-25

== ENCOUNTER 2020-11-15 17:02 | Emergency (ER) | payer OTHER ==
[2020-11-15 17:13] VITALS: BP 150/95; PULSE 86; TEMP 98; BMI 27.9
== END 2020-11-15 22:40 | disposition left against medical advice (07) ==
LOC: JER 17:02
DX: M54.5 Low back pain (principal)
CPT/HCPCS: 99282-25

== ENCOUNTER 2020-11-16 14:56 | Emergency (ER) | payer OTHER ==
[2020-11-16 15:15] VITALS: BP 111/67; PULSE 90; TEMP 97.9; BMI 35.9
[2020-11-16] MEDS ORDERED: FOLIC ACID INJECTION - 1 MG, THIAMINE HCL 100 MG, MULTIVIT INJECTION ADULT 10 ML in SOD... IVPB ONE (16:44)
[2020-11-16] MEDS ORDERED: METHOCARBAMOL 500 MG TABLET PO ONE (16:45)
[2020-11-16] MEDS ORDERED: ACETAMINOPHEN 1000 MG/100 ML VIAL (NON FORMULARY) IVPB ONE (16:45)
[2020-11-16] MEDS ORDERED: METHOCARBAMOL 500 MG TABLET ONE (17:05)
[2020-11-16] MEDS ORDERED: ACETAMINOPHEN INJECTION 100 ML IVPB ONE (17:05)
[2020-11-16 18:08] LABS: BASO % 1.5 % (0-2.0); EOS % 2.8 % (0-4.5); HEMATOCRIT 33.6 % (35.4-49); HEMOGLOBIN 10.6 GM/dL (11.7-16.9); LYMPH % 26.8 % (8-40); MCHC 31.6 g/dl (32.0-35.9); MEAN CELL VOLUME 82.2 fl (80-96); MEAN PLT VOLUME 7.9 fl (7.5-11.1); MONO % 9.6 % (3.8-10.2); NEUT % 59.3 % (42.8-82.8); PLATELET COUNT 380 K/MM3 (134-434); RBC 4.09 M/mm3 (4.00-5.60); RDW 20.4 % (11.9-15.9); WHITE BLOOD COUNT 6.4 K/mm3 (4.0-10.0)
[2020-11-16 18:16] LABS: INR 1.02 (0.83-1.09); PROTHROMBIN TIME (PATIENT) 12.3 SEC (9.7-13.0)
[2020-11-16 18:25] LABS: CHLORIDE 107 mmol/L (98-107); SODIUM 140 mmol/L (136-145)
[2020-11-16 18:27] LABS: CALCIUM 8.7 mg/dL (8.5-10.1)
[2020-11-16 18:28] LABS: ALBUMIN 3.1 g/dl (3.4-5.0); ANION GAP 8 MMOL/L (8-16); BLOOD UREA NITROGEN 10.3 mg/dL (7-18); CO2 25 mmol/L (21-32); GLUCOSE,RANDOM 80 mg/dL (74-106)
[2020-11-16 18:31] LABS: CREATININE 0.5 mg/dL (0.55-1.3); SGOT/AST 72 U/L (15-37); SGPT/ALT 43 U/L (13-61)
[2020-11-16 18:33] LABS: BILIRUBIN,TOTAL 0.4 mg/dL (0.2-1); TOT PROT 6.7 g/dl (6.4-8.2)
[2020-11-16 18:34] LABS: ALK PHOS 93 U/L (45-117)
== END 2020-11-16 20:12 | disposition home or self-care (01) ==
LOC: JER 14:56
PROC: 3E0333Z Introduction of Anti-inflammatory into Peripheral Vein, Percutaneous Approach (ICD-10-PCS; principal; 2020-11-16)
PROC: 3E033GC Introduction of Other Therapeutic Substance into Peripheral Vein, Percutaneous Approach (ICD-10-PCS; 2020-11-16)
DX: R07.9 Chest pain, unspecified (principal)
CPT/HCPCS: 36415; 80053; 82550; 82553; 84484; 85025; 85610; 99284-25; J0131

== ENCOUNTER 2020-11-25 22:57 | Emergency (ER) | payer OTHER ==
[2020-11-25 23:20] VITALS: BMI 25.0
[2020-11-26 06:22] VITALS: BP 132/78; PULSE 88; TEMP 98.8
== END 2020-11-26 06:55 | disposition home or self-care (01) ==
LOC: JER 22:57
DX: F09 Unspecified mental disorder due to known physiological condition (principal)
CPT/HCPCS: 99283-25

== ENCOUNTER 2020-12-01 16:14 | Inpatient (IN) | payer OTHER ==
[2020-12-01] MEDS ORDERED: HALOPERIDOL LACTATE 5 MG/ML IM ONE (17:11)
[2020-12-01] MEDS ORDERED: HALOPERIDOL LACTATE 5 MG/ML ONE (17:16)
[2020-12-01 18:44] LABS: BASO % 1.1 % (0-2.0); EOS % 1.4 % (0-4.5); HEMATOCRIT 32.7 % (35.4-49); HEMOGLOBIN 10.5 GM/dL (11.7-16.9); LYMPH % 11.9 % (8-40); MEAN CELL VOLUME 81.3 fl (80-96); MEAN PLT VOLUME 7.4 fl (7.5-11.1); MONO % 7.9 % (3.8-10.2); NEUT % 77.7 % (42.8-82.8); PLATELET COUNT 237 10^3/uL (134-434); RBC 4.02 M/mm3 (4.00-5.60); RDW 20.5 % (11.9-15.9); WHITE BLOOD COUNT 10.8 K/mm3 (4.0-10.0)
[2020-12-01] MEDS: ALBUTEROL SO4 2.5/IPRATROPIUM 0.5 INH SOL 3 ML VIAL.NEB. NEB SCH ×2 (18:44→18:45)
[2020-12-01 18:50] LABS: INR 1.1 (0.83-1.09); PROTHROMBIN TIME (PATIENT) 13.5 SEC (9.7-13.0)
[2020-12-01 18:53] LABS: ACTIVATED PTT 28.2 SECONDS (25.2-36.5)
[2020-12-01 19:05] LABS: CHLORIDE 104 mmol/L (98-107); SODIUM 138 mmol/L (136-145)
[2020-12-01 19:07] LABS: ALBUMIN 3.1 g/dl (3.4-5.0); ANION GAP 12 MMOL/L (8-16); BLOOD UREA NITROGEN 11.3 mg/dL (7-18); CALCIUM 8.9 mg/dL (8.5-10.1); CO2 22 mmol/L (21-32)
[2020-12-01 19:08] LABS: GLUCOSE,RANDOM 103 mg/dL (74-106)
[2020-12-01 19:10] LABS: SGOT/AST 33 U/L (15-37); SGPT/ALT 31 U/L (13-61)
[2020-12-01 19:11] LABS: CREATININE 0.9 mg/dL (0.55-1.3)
[2020-12-01 19:12] LABS: BILIRUBIN,TOTAL 0.4 mg/dL (0.2-1); TOT PROT 6.2 g/dl (6.4-8.2)
[2020-12-01 19:13] LABS: ALK PHOS 94 U/L (45-117)
[2020-12-01 19:15] LABS: ANISOCYTOSIS 3+; MACROCYTOSIS 0; OVALOCYTE 1+; PLATELET ESTIMATE NORMAL
[2020-12-01 19:16] LABS: N-TERMINAL BNP 247.6 pg/ml (5-125)
[2020-12-01] MEDS ORDERED: SODIUM CHLORIDE 0.9% 500 ML INFUS.BAG IV ONE (20:23)
[2020-12-01] MEDS ORDERED: AZITHROMYCIN IVPB 500 MG in DEXTROSE 5%-WATER - 250 ML IVPB ONE (20:24)
[2020-12-01] MEDS ORDERED: CEFTRIAXONE 1,000 MG in DEXTROSE 5%-WATER - 50 ML IVPB ONE (20:24)
[2020-12-01] MEDS ORDERED: AZITHROMYCIN IVPB 500 MG/250 ML BAG IVPB ONE (20:29)
[2020-12-01] MEDS ORDERED: CEFTRIAXONE 1 GM/50 ML BAG ONE (20:29)
[2020-12-01] MEDS ORDERED: POTASSIUM CHLORIDE ORAL LIQUID 20 MEQ/15 ML PO ONE (20:50)
[2020-12-01] MEDS ORDERED: KCL 10 MEQ IVPB 10 MEQ/100 ML INFUS.BAG IVPB SCH (21:00)
[2020-12-01] MEDS ORDERED: chlordiazePOXIDE HCL 25 MG CAPSULE PO PRN (21:54)
[2020-12-01 22:39] LABS: MAGNESIUM 1.7 mg/dL (1.8-2.4)
[2020-12-01] MEDS ORDERED: THIAMINE HCL 200 MG/2 ML VIAL IVPB ONE (22:41)
[2020-12-01] MEDS ORDERED: LORazepam 1 MG TABLET PO PRN (22:49)
[2020-12-01] MEDS ORDERED: chlordiazePOXIDE HCL 25 MG CAPSULE PO SCH (23:00)
[2020-12-01] MEDS: MAGNESIUM SULF 50% (8.12 MEQ/2 ML-1 GM VIAL) IVPB ONE ×2 (23:06→23:18)
[2020-12-01] MEDS: LORazepam 1 MG TABLET PO SCH (23:15)
[2020-12-01 23:50] VITALS: BMI 40.4
[2020-12-02] MEDS: LORazepam 1 MG TABLET PO SCH ×5 (05:40→22:09)
[2020-12-02] MEDS ORDERED: ENOXAPARIN NA (PORCINE) 40 MG/0.4 ML DISP.SYRIN SQ SCH (10:00)
[2020-12-02] MEDS ORDERED: THIAMINE HCL 200 MG/2 ML VIAL IVPB SCH (10:00)
[2020-12-02] MEDS ORDERED: CEFTRIAXONE 1 GM in DEXTROSE 5%-WATER - 50 ML IVPB SCH (10:00)
[2020-12-02] MEDS ORDERED: FOLIC ACID 1 MG TABLET (FP) PO SCH (10:00)
[2020-12-02] MEDS ORDERED: MULTIVITAMINS (DAILY MVI) TABLET (FP) PO SCH (10:00)
[2020-12-02] MEDS ORDERED: THIAMINE HCL 100 MG TABLET (FP) PO SCH (10:00)
[2020-12-02 12:47] LABS: HEMOGLOBIN 9.9 GM/dL (11.7-16.9); MCH 25.5 pg (25.7-33.7); MEAN CELL VOLUME 82.4 fl (80-96); PLATELET COUNT 233 10^3/uL (134-434); RBC 3.88 M/mm3 (4.00-5.60); RDW 20.4 % (11.9-15.9); WHITE BLOOD COUNT 7.3 K/mm3 (4.0-10.0)
[2020-12-02] MEDS ORDERED: cefTRIAXone SODIUM 1 GM VIAL ONE (12:48)
[2020-12-02] MEDS ORDERED: DEXTROSE 5%-WATER - 50 ML IVPB ONE (12:48)
[2020-12-02 13:13] LABS: ALBUMIN 2.8 g/dl (3.4-5.0); BLOOD UREA NITROGEN 8.3 mg/dL (7-18); CALCIUM 8.4 mg/dL (8.5-10.1)
[2020-12-02 13:14] LABS: MAGNESIUM 1.7 mg/dL (1.8-2.4)
[2020-12-02 13:17] LABS: PHOSPHOROUS 3.1 mg/dL (2.5-4.9)
[2020-12-02 13:18] LABS: BILIRUBIN,TOTAL 0.6 mg/dL (0.2-1); CREATININE 0.5 mg/dL (0.55-1.3); TOT PROT 5.8 g/dl (6.4-8.2)
[2020-12-03 01:18] VITALS: TEMP 98.3
[2020-12-03] MEDS ORDERED: LORazepam 1 MG TABLET PO SCH (05:00)
[2020-12-03] MEDS ORDERED: chlordiazePOXIDE HCL 25 MG CAPSULE PO SCH (05:00)
[2020-12-03 05:21] VITALS: BP 138/86; PULSE 79
[2020-12-04] MEDS ORDERED: chlordiazePOXIDE HCL 10 MG CAPSULE PO PRN
[2020-12-04] MEDS ORDERED: LORazepam 0.5 MG TABLET PO PRN
[2020-12-04] MEDS ORDERED: LORazepam 0.5 MG TABLET PO SCH (05:00)
[2020-12-04] MEDS ORDERED: chlordiazePOXIDE HCL 10 MG CAPSULE PO SCH (05:00)
[2020-12-05] MEDS ORDERED: chlordiazePOXIDE HCL 10 MG CAPSULE PO SCH (05:00)
[2020-12-05] MEDS ORDERED: LORazepam 0.5 MG TABLET PO ONE (05:00)
[2020-12-06] MEDS ORDERED: chlordiazePOXIDE HCL 10 MG CAPSULE PO ONE (05:00)
== END 2020-12-03 09:16 | disposition left against medical advice (07) | DRG 139 ==
LOC: JER 16:14 → JERBED 20:48 → J5S 22:03
PROVIDERS: ADMIT Internal Medicine; ATTEND Internal Medicine
PROC: HZ2ZZZZ Detoxification Services for Substance Abuse Treatment (ICD-10-PCS; principal; 2020-12-01)
DX: J18.9 Pneumonia, unspecified organism (principal); I10 Essential (primary) hypertension; E78.5 Hyperlipidemia, unspecified; M54.5 Low back pain; E87.6 Hypokalemia; D50.9 Iron deficiency anemia, unspecified; E83.42 Hypomagnesemia; F10.20 Alcohol dependence, uncomplicated; R09.02 Hypoxemia; I71.2 Thoracic aortic aneurysm, without rupture; R63.4 Abnormal weight loss; Z68.41 Body mass index [BMI] 40.0-44.9, adult; Z85.118 Personal history of other malignant neoplasm of bronchus and lung
CPT/HCPCS: 36415; 71045-TC-FY; 80053; 82607; 82746; 83540; 83550; 83735; 83880; 84100; 84484; 85025; 85027; 85610; 85730; 87899; 93005; 93010; 99285-25; C9803; U0003; U0005

== ENCOUNTER 2020-12-03 20:45 | Emergency (ER) | payer OTHER ==
[2020-12-03 20:59] VITALS: BP 101/63; PULSE 81; TEMP 98; BMI 33.0
== END 2020-12-03 22:20 | disposition left against medical advice (07) ==
LOC: JER 20:45
DX: M54.5 Low back pain (principal)
CPT/HCPCS: 99281-25

== ENCOUNTER 2020-12-04 14:37 | Emergency (ER) | payer OTHER ==
[2020-12-04 14:54] VITALS: PULSE 79; TEMP 98; BMI 41.5
[2020-12-04 17:47] VITALS: BP 118/71
== END 2020-12-04 17:59 | disposition home or self-care (01) ==
LOC: JER 14:37
DX: R53.1 Weakness (principal)
CPT/HCPCS: 71046-TC-FY; 99283-25

== ENCOUNTER 2020-12-05 22:05 | Emergency (ER) | payer OTHER ==
[2020-12-05 22:16] VITALS: BMI 41.4
[2020-12-06 05:05] VITALS: BP 131/66; PULSE 79; TEMP 97.9
== END 2020-12-06 06:29 | disposition home or self-care (01) ==
LOC: JER 22:05
DX: S00.81XA Abrasion of other part of head, initial encounter (principal); S80.212A Abrasion, left knee, initial encounter; S50.312A Abrasion of left elbow, initial encounter
CPT/HCPCS: 70450-TC; 73564-TC-LT-FY; 99284-25

== ENCOUNTER 2020-12-09 22:35 | Observation (INO) | payer OTHER ==
[2020-12-09 22:56] VITALS: BMI 41.4
[2020-12-10] MEDS ORDERED: diazePAM CARPU-JECT 10 MG/2 ML DISP.SYRIN IVPUSH ONE (09:38)
[2020-12-10] MEDS ORDERED: chlordiazePOXIDE HCL 25 MG CAPSULE PO ONE (09:39)
[2020-12-10 11:00] LABS: BASO % 0.8 % (0-2.0); EOS % 2.3 % (0-4.5); HEMATOCRIT 33.9 % (35.4-49); HEMOGLOBIN 10.8 GM/dL (11.7-16.9); LYMPH % 20.1 % (8-40); MCH 25.4 pg (25.7-33.7); MCHC 31.8 g/dl (32.0-35.9); MEAN PLT VOLUME 6.7 fl (7.5-11.1); MONO % 6.7 % (3.8-10.2); NEUT % 70.1 % (42.8-82.8); PLATELET COUNT 328 10^3/uL (134-434); RBC 4.24 M/mm3 (4.00-5.60); WHITE BLOOD COUNT 6.2 K/mm3 (4.0-10.0)
[2020-12-10 11:07] LABS: INR 0.96 (0.83-1.09); PROTHROMBIN TIME (PATIENT) 11.6 SEC (9.7-13.0)
[2020-12-10 11:09] LABS: ACTIVATED PTT 28.6 SECONDS (25.2-36.5)
[2020-12-10 11:53] LABS: ALBUMIN 3.4 g/dl (3.4-5.0); ALK PHOS 115 U/L (45-117); ANION GAP 10 MMOL/L (8-16); BILIRUBIN,TOTAL 0.3 mg/dL (0.2-1); BLOOD UREA NITROGEN 5.9 mg/dL (7-18); CALCIUM 8.9 mg/dL (8.5-10.1); CHLORIDE 104 mmol/L (98-107); CO2 28 mmol/L (21-32); CREATININE 0.6 mg/dL (0.55-1.3); GLUCOSE,RANDOM 85 mg/dL (74-106); LIPASE 37 U/L (73-393); SGOT/AST 18 U/L (15-37); SGPT/ALT 27 U/L (13-61); SODIUM 143 mmol/L (136-145)
[2020-12-10 13:36] LABS: EPI CELLS 27 /uL (0-25.1); HYALINE CASTS 21 /uL (0-3.1); PH,URINE 5.5 (5.0-8.0); URINE APPEARANCE CLOUDY; URINE BACTERIA 37 /uL (0-1359); URINE BILIRUBIN 1+ (NEGATIVE); URINE COLOR DK YELLOW; URINE GLUCOSE (UA) NEGATIVE (NEGATIVE); URINE KETONE TRACE (NEGATIVE); URINE LEUK ESTERASE TRACE (NEGATIVE); URINE NITRITE NEGATIVE (NEGATIVE); URINE PROTEIN TRACE (NEGATIVE); URINE RBC 10 /uL (0-23.9); URINE WBC 11 /uL (0-25.8)
[2020-12-10] MEDS ORDERED: MAGNESIUM SULF 50% (8.12 MEQ/2 ML-1 GM VIAL) IVPB ONE (18:53)
[2020-12-10] MEDS ORDERED: ATORVASTATIN CA 40 MG TABLET (FP) PO ONE (18:54)
[2020-12-10] MEDS ORDERED: ASPIRIN 81 MG CHEWABLE TABLETS PO ONE (18:54)
[2020-12-10] MEDS ORDERED: ASPIRIN 325 MG TABLET PO ONE (19:02)
[2020-12-10] MEDS ORDERED: ATORVASTATIN CA 40 MG TABLET (FP) ONE (19:18)
[2020-12-10] MEDS ORDERED: MAGNESIUM SULFATE IN WATER 2 GM/50 ML IVPB IVPB ONE (19:18)
[2020-12-10] MEDS ORDERED: ASPIRIN 325 MG ENTERIC COATED TABLET (FP) ONE (19:18)
[2020-12-11 07:00] LABS: HEMATOCRIT 33.8 % (35.4-49); HEMOGLOBIN 10.8 GM/dL (11.7-16.9); MCH 25.3 pg (25.7-33.7); MCHC 31.9 g/dl (32.0-35.9); MEAN CELL VOLUME 79.2 fl (80-96); MEAN PLT VOLUME 6.9 fl (7.5-11.1); PLATELET COUNT 326 10^3/uL (134-434); RBC 4.27 M/mm3 (4.00-5.60); RDW 19.9 % (11.9-15.9); WHITE BLOOD COUNT 7.4 K/mm3 (4.0-10.0)
[2020-12-11 07:20] LABS: CALCIUM 8.2 mg/dL (8.5-10.1); CHOLESTEROL 143 mg/dL (50-200); TRIGLYCERIDES 120 mg/dL (0-150)
[2020-12-11 07:21] LABS: BLOOD UREA NITROGEN 5.6 mg/dL (7-18); LDL CHOLESTEROL (ONLY SJRH) 71 mg/dL (5-100); MAGNESIUM 1.8 mg/dL (1.8-2.4)
[2020-12-11 07:23] LABS: BILIRUBIN,TOTAL 0.9 mg/dL (0.2-1); HDL CHOLESTEROL 52 mg/dL (40-60)
[2020-12-11 07:24] LABS: CREATININE 0.5 mg/dL (0.55-1.3); PHOSPHOROUS 3.3 mg/dL (2.5-4.9)
[2020-12-11 09:42] LABS: COCAINE, UR NEGATIVE (NEGATIVE)
[2020-12-11 09:43] LABS: METHADONE, UR NEGATIVE (NEGATIVE); OPIATES, URI NEGATIVE (NEGATIVE); PHENCYCLIDINE,URINE NEGATIVE (NEGATIVE)
[2020-12-11 09:44] LABS: URINE AMPHETAMINES NEGATIVE (NEGATIVE); URINE BARBITURATES NEGATIVE (NEGATIVE); URINE BENZODIAZEPINES POSITIVE (NEGATIVE)
[2020-12-11] MEDS: ENOXAPARIN NA (PORCINE) 40 MG/0.4 ML DISP.SYRIN SQ SCH (10:55)
[2020-12-11] MEDS: DOXYCYCLINE HYCLATE 100 MG CAPSULE PO SCH ×2 (10:55→17:50)
[2020-12-11] MEDS ORDERED: ACETAMINOPHEN 325 MG TABLET (FP) PO PRN (18:12)
[2020-12-12] MEDS ORDERED: ALBUTEROL SO4 HFA INHALER IH PRN (07:38)
[2020-12-12] MEDS ORDERED: CALCIUM GLUCONATE 10% - 1,000 MG/10 ML VIAL IVPB ONE (07:38)
[2020-12-12] MEDS ORDERED: INSULIN REGULAR HUMAN 100 UNITS/ML *VIAL IVPUSH ONE (07:38)
[2020-12-12] MEDS ORDERED: DEXTROSE 50%-WATER - 25 GM/50 ML VIAL IVPUSH ONE (07:39)
[2020-12-12] MEDS ORDERED: CALCIUM GLUCONATE IN NACL 1 GM/50 ML BAG IVPB ONE (08:00)
[2020-12-12 09:10] VITALS: BP 151/71; PULSE 95; TEMP 97.8
[2020-12-12] MEDS: ENOXAPARIN NA (PORCINE) 40 MG/0.4 ML DISP.SYRIN SQ SCH (09:10)
[2020-12-12] MEDS ORDERED: amLODIPine BESYLATE 5 MG TABLET (FP) PO SCH (10:00)
[2020-12-12] MEDS ORDERED: ASPIRIN 325 MG TABLET PO SCH (10:00)
[2020-12-12] MEDS ORDERED: ATORVASTATIN CA 80 MG TABLET (FP) PO SCH (22:00)
== END 2020-12-12 12:38 | disposition home or self-care (01) ==
LOC: JER 22:35 → INTOOBSV 12-10 17:42 → JERBED 12-10 17:42 → J4W 12-11 08:57
PROVIDERS: ATTEND Internal Medicine
PROC: 0T9B70Z Drainage of Bladder with Drainage Device, Via Natural or Artificial Opening (ICD-10-PCS; principal; 2020-12-10)
PROC: 3E033GC Introduction of Other Therapeutic Substance into Peripheral Vein, Percutaneous Approach (ICD-10-PCS; 2020-12-10)
DX: R07.89 Other chest pain (principal); R42 Dizziness and giddiness; F10.20 Alcohol dependence, uncomplicated; R33.9 Retention of urine, unspecified; I12.9 Hypertensive chronic kidney disease with stage 1 through stage 4 chronic kidney disease, or unspecified chronic kidney disease; N18.9 Chronic kidney disease, unspecified; E78.5 Hyperlipidemia, unspecified; M54.9 Dorsalgia, unspecified; G89.29 Other chronic pain; C45.7 Mesothelioma of other sites; E66.9 Obesity, unspecified; Z68.41 Body mass index [BMI] 40.0-44.9, adult; J44.9 Chronic obstructive pulmonary disease, unspecified; I71.2 Thoracic aortic aneurysm, without rupture; Z91.013 Allergy to seafood; Z59.0 Homelessness
CPT/HCPCS: 36415; 51702; 71045-TC-FY; 71275-TC; 74174-TC; 80053; 80061; 80307; 81003; 82550; 83036; 83690; 83721; 83735; 84100; 84484; 85025; 85027; 85610; 85730; 87086; 93005; 93010; 96374; 99285-25; C9803; G0378; Q9967; U0003; U0005

== ENCOUNTER 2020-12-15 10:16 | Emergency (ER) | payer OTHER ==
[2020-12-15 10:29] VITALS: BP 141/90; TEMP 97.4; BMI 33.0
[2020-12-15 10:30] VITALS: PULSE 94
== END 2020-12-15 11:00 | disposition home or self-care (01) ==
LOC: JER 10:16
DX: M54.9 Dorsalgia, unspecified (principal)
CPT/HCPCS: 99281-25

== ENCOUNTER 2020-12-18 14:30 | Emergency (ER) | payer OTHER ==
[2020-12-18 14:50] VITALS: BMI 33.0
[2020-12-18 19:08] VITALS: TEMP 98
[2020-12-19 01:07] VITALS: BP 156/95; PULSE 78
== END 2020-12-19 05:43 | disposition home or self-care (01) ==
LOC: JER 14:30
DX: S09.93XA Unspecified injury of face, initial encounter (principal); F10.10 Alcohol abuse, uncomplicated; Y99.9 Unspecified external cause status
CPT/HCPCS: 70450-TC; 72125-TC; 99284-25

== ENCOUNTER 2020-12-21 14:54 | Emergency (ER) | payer OTHER ==
[2020-12-21 15:04] VITALS: BP 131/78; PULSE 96; TEMP 97.8; BMI 33.0
== END 2020-12-21 18:37 | disposition home or self-care (01) ==
LOC: JER 14:54
DX: F10.129 Alcohol abuse with intoxication, unspecified (principal)
CPT/HCPCS: 99281-25

== ENCOUNTER 2020-12-22 17:13 | Emergency (ER) | payer OTHER ==
[2020-12-22 17:31] VITALS: BP 123/75; PULSE 68; TEMP 98.4; BMI 33.0
== END 2020-12-22 21:25 | disposition left against medical advice (07) ==
LOC: JER 17:13
DX: F10.920 Alcohol use, unspecified with intoxication, uncomplicated (principal)
CPT/HCPCS: 99283-25

== ENCOUNTER 2020-12-24 20:14 | Emergency (ER) | payer OTHER ==
[2020-12-24 20:49] VITALS: BMI 33.8
[2020-12-24] MEDS ORDERED: METHOCARBAMOL 500 MG TABLET PO ONE (21:41)
[2020-12-24] MEDS ORDERED: METHOCARBAMOL 500 MG TABLET ONE (22:07)
[2020-12-25 06:09] VITALS: BP 140/62; PULSE 77; TEMP 97.7
== END 2020-12-25 06:38 | disposition home or self-care (01) ==
LOC: JER 20:14
DX: F10.10 Alcohol abuse, uncomplicated (principal); M54.5 Low back pain
CPT/HCPCS: 99283-25

== ENCOUNTER 2020-12-27 08:22 | Inpatient (IN) | payer OTHER ==
[2020-12-27 09:19] VITALS: BMI 33.7
[2020-12-27] MEDS ORDERED: LORazepam 1 MG TABLET PO PRN (10:41)
[2020-12-27] MEDS ORDERED: BISMUTH SUBSALICYLATE 262 MG/15 ML BTL PO PRN (10:41)
[2020-12-27] MEDS ORDERED: ACETAMINOPHEN 325 MG TABLET (FP) PO PRN ×2 (10:41)
[2020-12-27] MEDS ORDERED: MAG HYDROX/AL HYDROX/SIMETH 30 ML UNIT-DOSE CUP PO PRN (10:41)
[2020-12-27] MEDS ORDERED: MAGNESIUM HYDROX 2400MG/30ML ORAL SUSPENSION 30 ML CUP PO PRN (10:41)
[2020-12-27] MEDS ORDERED: ONDANSETRON *ODT* 4 MG TABLET SL PRN (10:41)
[2020-12-27] MEDS ORDERED: METHOCARBAMOL 500 MG TABLET PO PRN (10:41)
[2020-12-27] MEDS ORDERED: MAGNESIUM CITRATE 300 ML BOTTLE PO PRN (10:41)
[2020-12-27] MEDS ORDERED: MENTHOL/PHENOL 1 EACH UD MM PRN (10:41)
[2020-12-27] MEDS ORDERED: IBUPROFEN 400 MG TABLET (FP) PO PRN (10:41)
[2020-12-27] MEDS: LORazepam 2 MG TABLET PO SCH ×3 (13:54→22:47)
[2020-12-27] MEDS: PRENATAL VITAMINS W/ FOLIC ACID TABLET (FP) PO SCH (13:55)
[2020-12-27] MEDS: hydrOXYzine PAMOATE 25 MG CAPSULE (FP) PO SCH ×3 (13:56→22:47)
[2020-12-27] MEDS: BUDESONIDE/FORMETEROL FUMARATE 160/4.5 mcg INHALER IH SCH (22:46)
[2020-12-27] MEDS: MELATONIN 5 MG TABLETS PO SCH (22:46)
[2020-12-27] MEDS: ATORVASTATIN CA 80 MG TABLET (FP) PO SCH (22:46)
[2020-12-27] MEDS: THIAMINE HCL 100 MG TABLET (FP) PO SCH (22:47)
[2020-12-28] MEDS: hydrOXYzine PAMOATE 25 MG CAPSULE (FP) PO SCH ×5 (06:11→22:42)
[2020-12-28] MEDS: LORazepam 2 MG TABLET PO SCH ×4 (06:11→22:43)
[2020-12-28 10:06] LABS: HEMATOCRIT 33.2 % (35.4-49); HEMOGLOBIN 10.6 GM/dL (11.7-16.9); MCH 25.4 pg (25.7-33.7); MCHC 31.9 g/dl (32.0-35.9); MEAN CELL VOLUME 79.6 fl (80-96); MEAN PLT VOLUME 8.6 fl (7.5-11.1); PLATELET COUNT 213 10^3/uL (134-434); RBC 4.17 M/mm3 (4.00-5.60); RDW 20.3 % (11.9-15.9); WHITE BLOOD COUNT 7.3 K/mm3 (4.0-10.0)
[2020-12-28 10:15] LABS: CALCIUM 8.6 mg/dL (8.5-10.1)
[2020-12-28 10:16] LABS: ALBUMIN 3.4 g/dl (3.4-5.0); BLOOD UREA NITROGEN 8.7 mg/dL (7-18)
[2020-12-28 10:17] LABS: BILIRUBIN,TOTAL 1.9 mg/dL (0.2-1)
[2020-12-28 10:18] LABS: TOT PROT 6.8 g/dl (6.4-8.2)
[2020-12-28 10:19] LABS: CREATININE 0.8 mg/dL (0.55-1.3)
[2020-12-28] MEDS: BUDESONIDE/FORMETEROL FUMARATE 160/4.5 mcg INHALER IH SCH ×2 (11:18→22:43)
[2020-12-28] MEDS: PRENATAL VITAMINS W/ FOLIC ACID TABLET (FP) PO SCH (11:18)
[2020-12-28] MEDS: amLODIPine BESYLATE 5 MG TABLET (FP) PO SCH (11:18)
[2020-12-28] MEDS: TIOTROPIUM BROMIDE 2.5 MCG (SPIRIVA) RESPIMAT INHALER IH SCH (11:18)
[2020-12-28] MEDS: FERROUS SO4 325 MG TABLET (FP) PO ONE ×2 (12:39→12:49)
[2020-12-28] MEDS: POTASSIUM CHLORIDE TABS 20 MEQ TABLET.ER (FP) PO SCH ×3 (12:39→17:10)
[2020-12-28] MEDS: MELATONIN 5 MG TABLETS PO SCH (22:42)
[2020-12-28] MEDS: THIAMINE HCL 100 MG TABLET (FP) PO SCH (22:42)
[2020-12-28] MEDS: ATORVASTATIN CA 80 MG TABLET (FP) PO SCH (22:50)
[2020-12-29] MEDS: LORazepam 1 MG TABLET PO SCH ×4 (07:11→23:56)
[2020-12-29] MEDS: hydrOXYzine PAMOATE 25 MG CAPSULE (FP) PO SCH ×5 (07:12→23:57)
[2020-12-29 10:26] LABS: CALCIUM 8.1 mg/dL (8.5-10.1)
[2020-12-29 10:27] LABS: BLOOD UREA NITROGEN 7.9 mg/dL (7-18)
[2020-12-29 10:30] LABS: CREATININE 0.5 mg/dL (0.55-1.3)
[2020-12-29] MEDS: amLODIPine BESYLATE 5 MG TABLET (FP) PO SCH (10:48)
[2020-12-29] MEDS: PRENATAL VITAMINS W/ FOLIC ACID TABLET (FP) PO SCH (10:48)
[2020-12-29] MEDS: TIOTROPIUM BROMIDE 2.5 MCG (SPIRIVA) RESPIMAT INHALER IH SCH (10:49)
[2020-12-29] MEDS: BUDESONIDE/FORMETEROL FUMARATE 160/4.5 mcg INHALER IH SCH ×2 (10:49→23:57)
[2020-12-29] MEDS: FERROUS SO4 325 MG TABLET (FP) PO SCH (10:54)
[2020-12-29] MEDS ORDERED: POTASSIUM CHLORIDE TABS 20 MEQ TABLET.ER (FP) PO ONE ×3 (11:00→17:00)
[2020-12-29] MEDS: ATORVASTATIN CA 80 MG TABLET (FP) PO SCH (23:57)
[2020-12-29] MEDS: THIAMINE HCL 100 MG TABLET (FP) PO SCH (23:57)
[2020-12-29] MEDS: MELATONIN 5 MG TABLETS PO SCH (23:57)
[2020-12-30] MEDS ORDERED: LORazepam 0.5 MG TABLET PO PRN
[2020-12-30] MEDS: LORazepam 0.5 MG TABLET PO SCH ×4 (07:01→22:54)
[2020-12-30] MEDS: hydrOXYzine PAMOATE 25 MG CAPSULE (FP) PO SCH ×5 (07:01→22:53)
[2020-12-30] MEDS: BUDESONIDE/FORMETEROL FUMARATE 160/4.5 mcg INHALER IH SCH ×2 (11:07→22:53)
[2020-12-30] MEDS: amLODIPine BESYLATE 5 MG TABLET (FP) PO SCH (11:07)
[2020-12-30] MEDS: FERROUS SO4 325 MG TABLET (FP) PO SCH (11:07)
[2020-12-30] MEDS: TIOTROPIUM BROMIDE 2.5 MCG (SPIRIVA) RESPIMAT INHALER IH SCH (11:07)
[2020-12-30] MEDS: PRENATAL VITAMINS W/ FOLIC ACID TABLET (FP) PO SCH (11:07)
[2020-12-30] MEDS ORDERED: POTASSIUM CHLORIDE ORAL LIQUID 20 MEQ/15 ML PO ONE ×2 (14:03→20:00)
[2020-12-30] MEDS: CALCIUM CARBONATE 650 MG TABLET PO SCH ×2 (14:24→22:53)
[2020-12-30] MEDS: ATORVASTATIN CA 80 MG TABLET (FP) PO SCH (22:53)
[2020-12-30] MEDS: MELATONIN 5 MG TABLETS PO SCH (22:53)
[2020-12-30] MEDS: THIAMINE HCL 100 MG TABLET (FP) PO SCH (22:54)
[2020-12-31] MEDS ORDERED: LORazepam 0.5 MG TABLET PO ONE (05:00)
[2020-12-31] MEDS: hydrOXYzine PAMOATE 25 MG CAPSULE (FP) PO SCH (07:34)
[2020-12-31] MEDS ORDERED: hydrOXYzine PAMOATE 25 MG CAPSULE (FP) PO PRN (08:49)
[2020-12-31] MEDS: FERROUS SO4 325 MG TABLET (FP) PO SCH (10:44)
[2020-12-31] MEDS: CALCIUM CARBONATE 650 MG TABLET PO SCH (10:44)
[2020-12-31] MEDS: BUDESONIDE/FORMETEROL FUMARATE 160/4.5 mcg INHALER IH SCH (10:45)
[2020-12-31] MEDS: TIOTROPIUM BROMIDE 2.5 MCG (SPIRIVA) RESPIMAT INHALER IH SCH (10:45)
[2020-12-31] MEDS: PRENATAL VITAMINS W/ FOLIC ACID TABLET (FP) PO SCH (10:45)
[2020-12-31] MEDS: amLODIPine BESYLATE 5 MG TABLET (FP) PO SCH (10:46)
[2020-12-31 13:06] VITALS: BP 123/74; PULSE 88; TEMP 96.8
== END 2020-12-31 13:34 | disposition short-term general hospital (02) | DRG 775 ==
LOC: YASAS 08:22 → Y3N 10:24
PROVIDERS: ADMIT Allergy & Immunology; ATTEND Allergy & Immunology
PROC: HZ2ZZZZ Detoxification Services for Substance Abuse Treatment (ICD-10-PCS; principal; 2020-12-27)
DX: F10.230 Alcohol dependence with withdrawal, uncomplicated (principal); F10.220 Alcohol dependence with intoxication, uncomplicated; D64.9 Anemia, unspecified; E83.51 Hypocalcemia; E87.6 Hypokalemia; I10 Essential (primary) hypertension; M54.5 Low back pain; R10.9 Unspecified abdominal pain; R06.02 Shortness of breath; R06.01 Orthopnea; Z86.16 Personal history of COVID-19; Z56.0 Unemployment, unspecified; Z59.0 Homelessness; Z85.89 Personal history of malignant neoplasm of other organs and systems
CPT/HCPCS: 36415; 70450-TC; 72125-TC; 80048; 80053; 85027; 86780; C9803; U0003; U0005

== ENCOUNTER 2020-12-31 13:52 | Emergency (ER) | payer OTHER ==
[2020-12-31] MEDS ORDERED: chlordiazePOXIDE HCL 10 MG CAPSULE PO ONE (15:01)
[2020-12-31] MEDS ORDERED: ACETAMINOPHEN 325 MG TABLET (FP) PO ONE (15:03)
[2020-12-31] MEDS ORDERED: chlordiazePOXIDE 5 MG CAPSULE ONE (15:06)
[2020-12-31] MEDS ORDERED: chlordiazePOXIDE HCL 10 MG CAPSULE ONE (15:07)
[2020-12-31] MEDS ORDERED: ACETAMINOPHEN 325 MG TABLET (FP) ONE (15:08)
[2020-12-31 15:33] VITALS: BP 130/61; PULSE 82; TEMP 98.2; BMI 38.0
== END 2020-12-31 18:56 | disposition home or self-care (01) ==
LOC: JER 13:52
DX: M25.561 Pain in right knee (principal)
CPT/HCPCS: 99283-25

== ENCOUNTER 2021-01-05 22:11 | Emergency (ER) | payer OTHER ==
[2021-01-05 22:54] VITALS: BMI 35.9
[2021-01-06] MEDS ORDERED: IBUPROFEN 600 MG TABLET (FP) PO ONE ×2 (07:06→07:24)
[2021-01-06 07:43] VITALS: BP 134/85; PULSE 90; TEMP 97.6
== END 2021-01-06 07:30 | disposition home or self-care (01) ==
LOC: JER 22:11
DX: F10.920 Alcohol use, unspecified with intoxication, uncomplicated (principal)
CPT/HCPCS: 99283-25

== ENCOUNTER 2021-01-06 14:02 | Emergency (ER) | payer OTHER ==
[2021-01-06 14:19] VITALS: BP 102/47; PULSE 102; TEMP 97.9; BMI 37.3
== END 2021-01-06 16:20 | disposition home or self-care (01) ==
LOC: JER 14:02
DX: Z76.5 Malingerer [conscious simulation] (principal)
CPT/HCPCS: 99281-25

== ENCOUNTER 2021-01-07 01:35 | Emergency (ER) | payer OTHER ==
[2021-01-07 01:48] VITALS: BP 124/79; PULSE 79; TEMP 98.4; BMI 35.9
[2021-01-07] MEDS ORDERED: ACETAMINOPHEN 325 MG TABLET (FP) PO ONE (04:14)
[2021-01-07] MEDS ORDERED: ACETAMINOPHEN 325 MG TABLET (FP) ONE (04:16)
== END 2021-01-07 06:07 | disposition home or self-care (01) ==
LOC: JER 01:35
DX: F10.10 Alcohol abuse, uncomplicated (principal); R51.9 Headache, unspecified
CPT/HCPCS: 70450-TC; 72125-TC; 99284-25

== ENCOUNTER 2021-01-07 15:57 | Emergency (ER) | payer OTHER ==
[2021-01-07 16:32] VITALS: BP 90/54; PULSE 78; TEMP 98; BMI 31.5
== END 2021-01-07 19:00 | disposition home or self-care (01) ==
LOC: JER 15:57
DX: F10.10 Alcohol abuse, uncomplicated (principal)
CPT/HCPCS: 99283-25

== ENCOUNTER 2021-01-09 11:52 | Emergency (ER) | payer OTHER ==
[2021-01-09 12:51] VITALS: TEMP 98.3; BMI 31.5
[2021-01-09 13:30] VITALS: BP 116/70; PULSE 85
== END 2021-01-09 14:23 | disposition left against medical advice (07) ==
LOC: JER 11:52
DX: R07.9 Chest pain, unspecified (principal)
CPT/HCPCS: 99283-25

== ENCOUNTER 2021-01-09 17:06 | Emergency (ER) | payer OTHER ==
[2021-01-09 17:59] VITALS: BP 104/69; PULSE 92; TEMP 98.1; BMI 36.6
== END 2021-01-09 19:35 | disposition left against medical advice (07) ==
LOC: JER 17:06
DX: M54.5 Low back pain (principal)
CPT/HCPCS: 99281-25

== ENCOUNTER 2021-01-10 12:08 | Emergency (ER) | payer OTHER ==
[2021-01-10 12:33] VITALS: TEMP 97.5; BMI 36.5
[2021-01-10 19:02] VITALS: BP 104/76; PULSE 85
== END 2021-01-10 19:04 | disposition left against medical advice (07) ==
LOC: JER 12:08
DX: F19.20 Other psychoactive substance dependence, uncomplicated (principal)
CPT/HCPCS: 99283-25; 99284-25

== ENCOUNTER 2021-01-11 01:50 | Emergency (ER) | payer OTHER ==
[2021-01-11 06:28] VITALS: BP 147/79; PULSE 91; TEMP 98.1
[2021-01-11 06:35] VITALS: BMI 36.5
== END 2021-01-11 08:11 | disposition home or self-care (01) ==
LOC: JER 01:50
DX: F10.10 Alcohol abuse, uncomplicated (principal); M54.5 Low back pain; M25.562 Pain in left knee
CPT/HCPCS: 99281-25

== ENCOUNTER 2021-01-11 16:46 | Emergency (ER) | payer OTHER ==
[2021-01-11 17:23] VITALS: BP 125/78; PULSE 103; TEMP 98.1; BMI 31.1
== END 2021-01-11 17:50 | disposition left against medical advice (07) ==
LOC: JER 16:46
DX: F10.10 Alcohol abuse, uncomplicated (principal); M54.5 Low back pain
CPT/HCPCS: 99281-25

== ENCOUNTER 2021-01-14 15:11 | Emergency (ER) | payer OTHER ==
[2021-01-14 15:20] VITALS: BP 124/72; PULSE 99; TEMP 98.6; BMI 45.6
[2021-01-14] MEDS ORDERED: ACETAMINOPHEN 500 MG TABLET (FP) PO ONE (17:27)
[2021-01-14] MEDS ORDERED: METHOCARBAMOL 500 MG TABLET PO ONE (17:27)
[2021-01-14] MEDS ORDERED: ACETAMINOPHEN 325 MG TABLET (FP) ONE (17:33)
[2021-01-14] MEDS ORDERED: METHOCARBAMOL 500 MG TABLET ONE (17:33)
== END 2021-01-14 19:11 | disposition home or self-care (01) ==
LOC: JER 15:11
DX: F10.10 Alcohol abuse, uncomplicated (principal); F10.920 Alcohol use, unspecified with intoxication, uncomplicated; M54.5 Low back pain
CPT/HCPCS: 99283-25

== ENCOUNTER 2021-01-21 00:39 | Emergency (ER) | payer OTHER ==
[2021-01-21 01:07] VITALS: BMI 31.9
[2021-01-21 04:28] VITALS: BP 129/77; PULSE 81; TEMP 98.1
== END 2021-01-21 06:54 | disposition home or self-care (01) ==
LOC: JER 00:39
DX: F10.10 Alcohol abuse, uncomplicated (principal)
CPT/HCPCS: 99281-25

== ENCOUNTER 2021-01-21 16:23 | Emergency (ER) | payer OTHER ==
[2021-01-21 16:56] VITALS: BP 112/79; PULSE 82; TEMP 98.2; BMI 43.3
== END 2021-01-21 17:00 | disposition left against medical advice (07) ==
LOC: JER 16:23
DX: F10.129 Alcohol abuse with intoxication, unspecified (principal)
CPT/HCPCS: 99281-25

== ENCOUNTER 2021-01-21 19:57 | Emergency (ER) | payer OTHER ==
[2021-01-21 20:40] VITALS: BP 131/79; PULSE 89; TEMP 98.8; BMI 44.8
== END 2021-01-21 23:00 | disposition home or self-care (01) ==
LOC: JER 19:57
DX: S01.01XA Laceration without foreign body of scalp, initial encounter (principal); F10.10 Alcohol abuse, uncomplicated; W01.198A Fall on same level from slipping, tripping and stumbling with subsequent striking against other object, initial encounter
CPT/HCPCS: 99281-25

== ENCOUNTER 2021-01-26 09:38 | Inpatient (IN) | payer OTHER ==
[2021-01-26 10:15] VITALS: BMI 33.0
[2021-01-26] MEDS ORDERED: MAG HYDROX/AL HYDROX/SIMETH 30 ML UNIT-DOSE CUP PO PRN (15:20)
[2021-01-26] MEDS ORDERED: MAGNESIUM HYDROX 2400MG/30ML ORAL SUSPENSION 30 ML CUP PO PRN (15:20)
[2021-01-26] MEDS ORDERED: MAGNESIUM CITRATE 300 ML BOTTLE PO PRN (15:20)
[2021-01-26] MEDS ORDERED: MENTHOL/PHENOL 1 EACH UD MM PRN (15:20)
[2021-01-26] MEDS ORDERED: METHOCARBAMOL 500 MG TABLET PO PRN (15:20)
[2021-01-26] MEDS ORDERED: ACETAMINOPHEN 325 MG TABLET (FP) PO PRN ×2 (15:20)
[2021-01-26] MEDS ORDERED: ONDANSETRON *ODT* 4 MG TABLET SL PRN (15:20)
[2021-01-26] MEDS ORDERED: LORazepam 1 MG TABLET PO PRN (15:20)
[2021-01-26] MEDS ORDERED: BISMUTH SUBSALICYLATE 524 MG/30 ML PO PRN (15:20)
[2021-01-26] MEDS: MELATONIN 5 MG TABLETS PO SCH (23:57)
[2021-01-26] MEDS: LORazepam 2 MG TABLET PO SCH ×2 (23:57)
[2021-01-26] MEDS: THIAMINE HCL 100 MG TABLET (FP) PO SCH (23:58)
[2021-01-26] MEDS: hydrOXYzine PAMOATE 25 MG CAPSULE (FP) PO SCH ×2 (23:58)
[2021-01-27] MEDS ORDERED: LORazepam 2 MG TABLET ONE (06:30)
[2021-01-27] MEDS ORDERED: hydrOXYzine PAMOATE 25 MG CAPSULE (FP) PO ONE (06:30)
[2021-01-27] MEDS: hydrOXYzine PAMOATE 25 MG CAPSULE (FP) PO SCH ×4 (06:38→22:32)
[2021-01-27] MEDS: LORazepam 2 MG TABLET PO SCH ×3 (06:38→22:32)
[2021-01-27] MEDS: amLODIPine BESYLATE 5 MG TABLET (FP) PO SCH (15:20)
[2021-01-27] MEDS: PRENATAL VITAMINS W/ FOLIC ACID TABLET (FP) PO SCH (15:26)
[2021-01-27] MEDS: THIAMINE HCL 100 MG TABLET (FP) PO SCH (22:31)
[2021-01-27] MEDS: MELATONIN 5 MG TABLETS PO SCH (22:32)
[2021-01-28] MEDS: LORazepam 1 MG TABLET PO SCH ×4 (06:29→22:22)
[2021-01-28] MEDS: hydrOXYzine PAMOATE 25 MG CAPSULE (FP) PO SCH ×4 (10:01→22:24)
[2021-01-28] MEDS: amLODIPine BESYLATE 5 MG TABLET (FP) PO SCH (10:02)
[2021-01-28] MEDS: IBUPROFEN 400 MG TABLET (FP) PO PRN (10:03)
[2021-01-28] MEDS: PRENATAL VITAMINS W/ FOLIC ACID TABLET (FP) PO SCH (10:10)
[2021-01-28 10:22] LABS: HEMATOCRIT 31.8 % (35.4-49); HEMOGLOBIN 10.3 GM/dL (11.7-16.9); MCH 26.9 pg (25.7-33.7); MCHC 32.3 g/dl (32.0-35.9); MEAN CELL VOLUME 83.3 fl (80-96); PLATELET COUNT 230 10^3/uL (134-434); RBC 3.82 M/mm3 (4.00-5.60); RDW 24.3 % (11.9-15.9); WHITE BLOOD COUNT 6.8 K/mm3 (4.0-10.0)
[2021-01-28 12:58] LABS: CALCIUM 8.4 mg/dL (8.5-10.1)
[2021-01-28 12:59] LABS: ALBUMIN 2.9 g/dl (3.4-5.0)
[2021-01-28 13:02] LABS: CREATININE 0.7 mg/dL (0.55-1.3)
[2021-01-28 13:03] LABS: BILIRUBIN,TOTAL 0.5 mg/dL (0.2-1); TOT PROT 5.6 g/dl (6.4-8.2)
[2021-01-28] MEDS: TIOTROPIUM BROMIDE 2.5 MCG (SPIRIVA) RESPIMAT INHALER IH SCH ×2 (14:28→23:09)
[2021-01-28] MEDS: BUDESONIDE/FORMETEROL FUMARATE 160/4.5 mcg INHALER IH SCH ×2 (14:28→23:09)
[2021-01-28] MEDS ORDERED: POTASSIUM CHLORIDE ORAL LIQUID 20 MEQ/15 ML PO ONE ×2 (15:30→17:30)
[2021-01-28] MEDS: MELATONIN 5 MG TABLETS PO SCH (22:23)
[2021-01-28] MEDS: THIAMINE HCL 100 MG TABLET (FP) PO SCH (22:24)
[2021-01-29] MEDS ORDERED: LORazepam 0.5 MG TABLET PO PRN
[2021-01-29] MEDS: LORazepam 0.5 MG TABLET PO SCH ×4 (05:26→22:54)
[2021-01-29] MEDS: hydrOXYzine PAMOATE 25 MG CAPSULE (FP) PO SCH ×4 (05:26→22:07)
[2021-01-29] MEDS: amLODIPine BESYLATE 5 MG TABLET (FP) PO SCH (10:53)
[2021-01-29] MEDS: TIOTROPIUM BROMIDE 2.5 MCG (SPIRIVA) RESPIMAT INHALER IH SCH ×3 (10:53→23:03)
[2021-01-29] MEDS: BUDESONIDE/FORMETEROL FUMARATE 160/4.5 mcg INHALER IH SCH ×3 (10:53→23:04)
[2021-01-29] MEDS: PRENATAL VITAMINS W/ FOLIC ACID TABLET (FP) PO SCH (10:53)
[2021-01-29] MEDS: IBUPROFEN 400 MG TABLET (FP) PO PRN (10:59)
[2021-01-29] MEDS: MELATONIN 5 MG TABLETS PO SCH (22:55)
[2021-01-29] MEDS: THIAMINE HCL 100 MG TABLET (FP) PO SCH ×2 (22:55→23:04)
[2021-01-30] MEDS ORDERED: LORazepam 0.5 MG TABLET PO ONE (05:00)
[2021-01-30] MEDS: hydrOXYzine PAMOATE 25 MG CAPSULE (FP) PO SCH ×2 (05:11→09:55)
[2021-01-30 09:36] VITALS: BP 118/74; PULSE 74; TEMP 98.1
[2021-01-30] MEDS: BUDESONIDE/FORMETEROL FUMARATE 160/4.5 mcg INHALER IH SCH (09:53)
[2021-01-30] MEDS: TIOTROPIUM BROMIDE 2.5 MCG (SPIRIVA) RESPIMAT INHALER IH SCH (09:53)
[2021-01-30] MEDS: PRENATAL VITAMINS W/ FOLIC ACID TABLET (FP) PO SCH (09:53)
[2021-01-30] MEDS: amLODIPine BESYLATE 5 MG TABLET (FP) PO SCH (09:53)
== END 2021-01-30 10:52 | disposition home or self-care (01) | DRG 775 ==
LOC: YASAS 09:38 → Y6N 01-27 12:41
PROVIDERS: ADMIT Allergy & Immunology; ATTEND Allergy & Immunology
PROC: HZ2ZZZZ Detoxification Services for Substance Abuse Treatment (ICD-10-PCS; principal; 2021-01-27)
DX: F10.230 Alcohol dependence with withdrawal, uncomplicated (principal); F41.9 Anxiety disorder, unspecified; I48.20 Chronic atrial fibrillation, unspecified; I10 Essential (primary) hypertension; J44.9 Chronic obstructive pulmonary disease, unspecified; C45.9 Mesothelioma, unspecified; E66.9 Obesity, unspecified; Z68.33 Body mass index [BMI] 33.0-33.9, adult; Z86.16 Personal history of COVID-19; Z86.79 Personal history of other diseases of the circulatory system; Z91.013 Allergy to seafood; Z59.0 Homelessness
CPT/HCPCS: 36415; 71045-TC-FY; 80053; 80307; 82550; 84484; 85025; 85027; 86780; 93005; 93010; C9803; U0003; U0005

== ENCOUNTER 2021-02-01 17:32 | Emergency (ER) | payer OTHER ==
[2021-02-01 18:52] VITALS: BP 103/63; PULSE 74; TEMP 98.3; BMI 31.6
== END 2021-02-01 18:00 | disposition left against medical advice (07) ==
LOC: JER 17:32
DX: M54.5 Low back pain (principal)
CPT/HCPCS: 99281-25

== ENCOUNTER 2021-02-02 13:15 | Emergency (ER) | payer OTHER ==
[2021-02-02 13:30] VITALS: BMI 33.0
[2021-02-03] MEDS ORDERED: chlordiazePOXIDE 5 MG CAPSULE ONE (03:04)
[2021-02-03] MEDS ORDERED: chlordiazePOXIDE HCL 25 MG CAPSULE PO ONE (03:05)
[2021-02-03 08:40] VITALS: BP 166/102; PULSE 88; TEMP 98.4
== END 2021-02-03 08:42 | disposition home or self-care (01) ==
LOC: JER 13:15
DX: M54.5 Low back pain (principal)
CPT/HCPCS: 99283-25

== ENCOUNTER 2021-02-04 14:20 | Emergency (ER) | payer OTHER ==
[2021-02-04 14:33] VITALS: BP 117/78; PULSE 98; TEMP 97.5; BMI 35.9
[2021-02-04] MEDS ORDERED: IBUPROFEN 400 MG TABLET (FP) PO ONE (23:33)
== END 2021-02-05 06:37 | disposition home or self-care (01) ==
LOC: JER 14:20
DX: S09.90XA Unspecified injury of head, initial encounter (principal); M54.5 Low back pain; W01.198A Fall on same level from slipping, tripping and stumbling with subsequent striking against other object, initial encounter
CPT/HCPCS: 70450-TC; 99284-25

== ENCOUNTER 2021-02-06 12:30 | Emergency (ER) | payer OTHER ==
[2021-02-06 12:46] VITALS: BP 101/57; PULSE 85; TEMP 97; BMI 33.0
== END 2021-02-06 14:32 | disposition left against medical advice (07) ==
LOC: JER 12:30
DX: F10.129 Alcohol abuse with intoxication, unspecified (principal)
CPT/HCPCS: 99282-25

== ENCOUNTER 2021-02-06 17:22 | Emergency (ER) | payer OTHER ==
[2021-02-06 17:42] VITALS: BP 117/72; PULSE 80; TEMP 98.6; BMI 33.0
== END 2021-02-06 19:05 | disposition home or self-care (01) ==
LOC: JER 17:22
DX: F10.239 Alcohol dependence with withdrawal, unspecified (principal)
CPT/HCPCS: 99283-25

== ENCOUNTER 2021-02-08 15:29 | Emergency (ER) | payer OTHER ==
[2021-02-08 15:36] VITALS: BP 111/75; PULSE 96; TEMP 98.3; BMI 35.9
== END 2021-02-08 16:52 | disposition home or self-care (01) ==
LOC: JER 15:29
DX: F10.10 Alcohol abuse, uncomplicated (principal)
CPT/HCPCS: 99283-25

== ENCOUNTER 2021-02-08 22:42 | Emergency (ER) | payer OTHER ==
[2021-02-08 22:48] VITALS: TEMP 98; BMI 33.0
[2021-02-09 01:58] LABS: CHLORIDE 110 mmol/L (98-107); SODIUM 143 mmol/L (136-145)
[2021-02-09 02:01] LABS: ALBUMIN 3.2 g/dl (3.4-5.0); ANION GAP 9 MMOL/L (8-16); BLOOD UREA NITROGEN 7.3 mg/dL (7-18); CO2 24 mmol/L (21-32); GLUCOSE,RANDOM 85 mg/dL (74-106); MAGNESIUM 1.8 mg/dL (1.8-2.4)
[2021-02-09 02:04] LABS: CREATININE 0.8 mg/dL (0.55-1.3)
[2021-02-09 02:05] LABS: BILIRUBIN,TOTAL 0.6 mg/dL (0.2-1); SGOT/AST 58 U/L (15-37); SGPT/ALT 31 U/L (13-61)
[2021-02-09 02:07] LABS: ALK PHOS 94 U/L (45-117)
[2021-02-09 02:10] LABS: N-TERMINAL BNP 25.5 pg/ml (5-125)
[2021-02-09 03:20] LABS: BASO % 1.2 % (0-2.0); EOS % 2.6 % (0-4.5); HEMATOCRIT 31.1 % (35.4-49); HEMOGLOBIN 9.9 GM/dL (11.7-16.9); LYMPH % 42.9 % (8-40); MCH 25.9 pg (25.7-33.7); MCHC 31.8 g/dl (32.0-35.9); MEAN CELL VOLUME 81.3 fl (80-96); MEAN PLT VOLUME 6.8 fl (7.5-11.1); MONO % 6.5 % (3.8-10.2); NEUT % 46.8 % (42.8-82.8); PLATELET COUNT 365 10^3/uL (134-434); RBC 3.82 M/mm3 (4.00-5.60); RDW 23.3 % (11.9-15.9)
[2021-02-09 03:55] LABS: TOT PROT 7.1 g/dl (6.4-8.2)
[2021-02-09 04:40] LABS: ANISOCYTOSIS 2+; MACROCYTOSIS 1+; PLATELET ESTIMATE NORMAL
[2021-02-09 05:20] LABS: CHLORIDE 112 mmol/L (98-107); SODIUM 148 mmol/L (136-145)
[2021-02-09 05:21] LABS: ANION GAP 10 MMOL/L (8-16); BLOOD UREA NITROGEN 6.7 mg/dL (7-18); CO2 26 mmol/L (21-32); GLUCOSE,RANDOM 76 mg/dL (74-106)
[2021-02-09 05:22] LABS: CALCIUM 7.6 mg/dL (8.5-10.1)
[2021-02-09 05:25] LABS: CREATININE 0.6 mg/dL (0.55-1.3)
[2021-02-09 06:44] VITALS: BP 147/95; PULSE 78
== END 2021-02-09 06:45 | disposition home or self-care (01) ==
LOC: JER 22:42
DX: R55 Syncope and collapse (principal)
CPT/HCPCS: 36415; 80048; 80053; 82550; 82553; 83735; 83880; 84100; 84484; 85025; 93005; 93010; 99284-25; C9803; U0003; U0005

== ENCOUNTER 2021-02-09 20:35 | Emergency (ER) | payer OTHER ==
[2021-02-09 21:06] VITALS: BP 101/66; PULSE 92; TEMP 97.8; BMI 25.0
== END 2021-02-09 23:20 | disposition left against medical advice (07) ==
LOC: JER 20:35
DX: M54.5 Low back pain (principal)
CPT/HCPCS: 99281-25

== ENCOUNTER 2021-02-11 20:42 | Emergency (ER) | payer OTHER ==
[2021-02-11 22:08] VITALS: BP 109/64; PULSE 79; TEMP 98.3; BMI 35.9
[2021-02-12] MEDS ORDERED: LIDOCAINE 5% TOPICAL PATCH TP ONE (02:32)
== END 2021-02-12 06:23 | disposition home or self-care (01) ==
LOC: JER 20:42
DX: M54.9 Dorsalgia, unspecified (principal); G89.29 Other chronic pain
CPT/HCPCS: 99283-25

== ENCOUNTER 2021-02-12 15:56 | Emergency (ER) | payer OTHER ==
[2021-02-12 16:34] VITALS: BP 106/88; PULSE 97; TEMP 98.1; BMI 37.1
[2021-02-12] MEDS ORDERED: ACETAMINOPHEN 325 MG TABLET (FP) PO ONE (16:41)
[2021-02-12] MEDS ORDERED: ACETAMINOPHEN 325 MG TABLET (FP) ONE (17:27)
== END 2021-02-12 17:00 | disposition left against medical advice (07) ==
LOC: JER 15:56
DX: M54.6 Pain in thoracic spine (principal); Z87.312 Personal history of (healed) stress fracture
CPT/HCPCS: 99283-25

== ENCOUNTER 2021-02-21 19:33 | Inpatient (IN) | payer OTHER ==
[2021-02-21] MEDS ORDERED: SODIUM CHLORIDE 1,000 ML IV STA ×2 (20:01→22:41)
[2021-02-21 21:07] LABS: INR 1.02 (0.83-1.09); PROTHROMBIN TIME (PATIENT) 12.3 SEC (9.7-13.0)
[2021-02-21 21:17] LABS: CHLORIDE 108 mmol/L (98-107); SODIUM 140 mmol/L (136-145)
[2021-02-21 21:20] LABS: ALBUMIN 3.1 g/dl (3.4-5.0); CALCIUM 8.7 mg/dL (8.5-10.1)
[2021-02-21 21:21] LABS: ANION GAP 12 MMOL/L (8-16); BLOOD UREA NITROGEN 11.8 mg/dL (7-18); CO2 20 mmol/L (21-32); GLUCOSE,RANDOM 76 mg/dL (74-106)
[2021-02-21 21:23] LABS: SGPT/ALT 49 U/L (13-61)
[2021-02-21 21:24] LABS: CREATININE 1.4 mg/dL (0.55-1.3); SGOT/AST 53 U/L (15-37)
[2021-02-21 21:25] LABS: BILIRUBIN,TOTAL 0.2 mg/dL (0.2-1); TOT PROT 6.7 g/dl (6.4-8.2)
[2021-02-21 21:26] LABS: ALK PHOS 91 U/L (45-117)
[2021-02-21 21:29] LABS: N-TERMINAL BNP 234.8 pg/ml (5-125)
[2021-02-21 21:30] LABS: VENOUS BASE EXCESS -6.8 mmol/L (-2-2); VENOUS O2 SATURATION 36.3 % (70-80); VENOUS PCO2 47.9 mmHg (38-52)
[2021-02-21 21:31] LABS: BASO % 0.6 % (0-2.0); EOS % 1.3 % (0-4.5); LYMPH % 18.9 % (8-40); MCH 26.1 pg (25.7-33.7); MCHC 30.2 g/dl (32.0-35.9); MEAN CELL VOLUME 86.3 fl (80-96); MEAN PLT VOLUME 8.2 fl (7.5-11.1); MONO % 13.5 % (3.8-10.2); NEUT % 65.7 % (42.8-82.8); PLATELET COUNT 293 10^3/uL (134-434); RBC 3.82 M/mm3 (4.00-5.60); RDW 24.2 % (11.9-15.9); WHITE BLOOD COUNT 9.3 K/mm3 (4.0-10.0)
[2021-02-21 22:13] LABS: ANISOCYTOSIS 3+; MACROCYTOSIS 1+; OVALOCYTE 1+; PLATELET ESTIMATE NORMAL
[2021-02-22] MEDS ORDERED: ONDANSETRON *ODT* 4 MG TABLET SL PRN (01:25)
[2021-02-22] MEDS ORDERED: MAG HYDROX/AL HYDROX/SIMETH 30 ML UNIT-DOSE CUP PO PRN (01:25)
[2021-02-22] MEDS ORDERED: MELATONIN 5 MG TABLETS PO PRN (01:25)
[2021-02-22] MEDS ORDERED: FOLIC ACID INJECTION - 1 MG, THIAMINE HCL 100 MG, MULTIVIT INJECTION ADULT 10 ML in SOD... IVPB ONE (02:45)
[2021-02-22 04:27] VITALS: BMI 34.2
[2021-02-22] MEDS ORDERED: LORazepam 2 MG/ML SDV VIAL IVPUSH PRN (07:54)
[2021-02-22] MEDS ORDERED: PT OWN MED DRAWER 7, Y5N ONE (10:20)
[2021-02-22] MEDS: ENOXAPARIN NA (PORCINE) 40 MG/0.4 ML DISP.SYRIN SQ SCH (10:23)
[2021-02-22] MEDS: CALCIUM (OYSTER SHELL) 500 MG TABLET (FP) PO SCH (10:30)
[2021-02-22] MEDS: TIOTROPIUM BROMIDE 2.5 MCG (SPIRIVA) RESPIMAT INHALER IH SCH (10:30)
[2021-02-22] MEDS: BUDESONIDE/FORMETEROL FUMARATE 160/4.5 mcg INHALER IH SCH ×2 (10:31→22:02)
[2021-02-22] MEDS: SODIUM CHLORIDE 0.45% 1,000 ML IV SCH (22:02)
[2021-02-23] MEDS: THIAMINE HCL 100 MG TABLET (FP) PO SCH (11:19)
[2021-02-23] MEDS: FOLIC ACID 1 MG TABLET (FP) PO SCH (11:19)
[2021-02-23] MEDS: ENOXAPARIN NA (PORCINE) 40 MG/0.4 ML DISP.SYRIN SQ SCH (11:21)
[2021-02-23] MEDS: BUDESONIDE/FORMETEROL FUMARATE 160/4.5 mcg INHALER IH SCH ×2 (11:22→21:03)
[2021-02-23] MEDS: TIOTROPIUM BROMIDE 2.5 MCG (SPIRIVA) RESPIMAT INHALER IH SCH (11:22)
[2021-02-23] MEDS: CALCIUM (OYSTER SHELL) 500 MG TABLET (FP) PO SCH (11:22)
[2021-02-23] MEDS: CYANOCOBALAMIN (VITAMIN B-12) 100 MCG TABLET PO SCH (11:23)
[2021-02-23] MEDS: SODIUM CHLORIDE 0.45% 1,000 ML IV SCH (21:03)
[2021-02-24] MEDS: ENOXAPARIN NA (PORCINE) 40 MG/0.4 ML DISP.SYRIN SQ SCH (09:12)
[2021-02-24] MEDS: FOLIC ACID 1 MG TABLET (FP) PO SCH (09:12)
[2021-02-24] MEDS: TIOTROPIUM BROMIDE 2.5 MCG (SPIRIVA) RESPIMAT INHALER IH SCH (09:12)
[2021-02-24] MEDS: CALCIUM (OYSTER SHELL) 500 MG TABLET (FP) PO SCH (09:12)
[2021-02-24] MEDS: CYANOCOBALAMIN (VITAMIN B-12) 100 MCG TABLET PO SCH (09:13)
[2021-02-24] MEDS: BUDESONIDE/FORMETEROL FUMARATE 160/4.5 mcg INHALER IH SCH ×2 (09:13→21:42)
[2021-02-24] MEDS: THIAMINE HCL 100 MG TABLET (FP) PO SCH (09:13)
[2021-02-24 13:44] LABS: CALCIUM 8.7 mg/dL (8.5-10.1)
[2021-02-24 13:45] LABS: BLOOD UREA NITROGEN 9.4 mg/dL (7-18); MAGNESIUM 1.6 mg/dL (1.8-2.4)
[2021-02-24 13:48] LABS: CREATININE 0.6 mg/dL (0.55-1.3); PHOSPHOROUS 4.4 mg/dL (2.5-4.9)
[2021-02-24] MEDS: SODIUM CHLORIDE 0.45% 1,000 ML IV SCH (21:42)
[2021-02-25 01:01] VITALS: BP 144/94; PULSE 82; TEMP 98.2
[2021-02-25] MEDS: ENOXAPARIN NA (PORCINE) 40 MG/0.4 ML DISP.SYRIN SQ SCH (09:22)
[2021-02-25] MEDS: FOLIC ACID 1 MG TABLET (FP) PO SCH (09:22)
[2021-02-25] MEDS: TIOTROPIUM BROMIDE 2.5 MCG (SPIRIVA) RESPIMAT INHALER IH SCH (09:22)
[2021-02-25] MEDS: CALCIUM (OYSTER SHELL) 500 MG TABLET (FP) PO SCH (09:22)
[2021-02-25] MEDS: BUDESONIDE/FORMETEROL FUMARATE 160/4.5 mcg INHALER IH SCH (09:23)
[2021-02-25] MEDS: CYANOCOBALAMIN (VITAMIN B-12) 100 MCG TABLET PO SCH (09:23)
[2021-02-25] MEDS: THIAMINE HCL 100 MG TABLET (FP) PO SCH (09:23)
[2021-02-25] MEDS ORDERED: MAGNESIUM OXIDE 400 MG TABLET (FP) PO SCH (10:00)
[2021-02-25] MEDS ORDERED: amLODIPine BESYLATE 2.5 MG TABLET (FP) PO SCH (10:00)
== END 2021-02-25 15:16 | disposition home or self-care (01) | DRG 775 ==
LOC: JER 19:33 → JERBED 21:44 → J4W 02-22 03:52
PROVIDERS: ADMIT Internal Medicine; ATTEND Family Medicine
DX: F10.230 Alcohol dependence with withdrawal, uncomplicated (principal); F10.220 Alcohol dependence with intoxication, uncomplicated; N17.9 Acute kidney failure, unspecified; I95.9 Hypotension, unspecified; I10 Essential (primary) hypertension; E78.5 Hyperlipidemia, unspecified; Z86.16 Personal history of COVID-19; E86.0 Dehydration; I44.0 Atrioventricular block, first degree; C45.9 Mesothelioma, unspecified; R55 Syncope and collapse; E66.9 Obesity, unspecified; Z68.34 Body mass index [BMI] 34.0-34.9, adult; Y90.8 Blood alcohol level of 240 mg/100 ml or more
CPT/HCPCS: 36415; 71045-TC-FY; 80048; 80053; 80307; 82550; 82803; 82962; 83735; 83880; 84100; 84484; 85025; 85610; 85730; 87040; 93005; 93010; 99285-25; C9803; U0003; U0005

== ENCOUNTER 2021-02-26 23:17 | Emergency (ER) | payer OTHER ==
[2021-02-26 23:57] VITALS: TEMP 97.6; BMI 28.7
[2021-02-27 06:20] VITALS: BP 114/86; PULSE 85
== END 2021-02-27 06:43 | disposition home or self-care (01) ==
LOC: JER 23:17
DX: F10.920 Alcohol use, unspecified with intoxication, uncomplicated (principal)
CPT/HCPCS: 99281-25

== ENCOUNTER 2021-02-28 13:29 | Emergency (ER) | payer OTHER ==
[2021-02-28 13:55] VITALS: BP 141/91; PULSE 85; TEMP 98.4; BMI 28.4
== END 2021-02-28 18:21 | disposition home or self-care (01) ==
LOC: JER 13:29
DX: M54.9 Dorsalgia, unspecified (principal); F10.220 Alcohol dependence with intoxication, uncomplicated
CPT/HCPCS: 99283-25

== ENCOUNTER 2021-03-01 22:20 | Emergency (ER) | payer OTHER ==
[2021-03-01 22:25] VITALS: BP 136/82; PULSE 99; TEMP 97; BMI 33.0
[2021-03-02] MEDS ORDERED: METHOCARBAMOL 500 MG TABLET PO ONE (02:43)
== END 2021-03-02 07:04 | disposition home or self-care (01) ==
LOC: JER 22:20
DX: M54.5 Low back pain (principal); G89.29 Other chronic pain
CPT/HCPCS: 99283-25

== ENCOUNTER 2021-03-04 18:03 | Emergency (ER) | payer OTHER ==
[2021-03-04 18:11] VITALS: BP 153/94; PULSE 101; TEMP 97.9; BMI 35.9
== END 2021-03-05 07:01 | disposition home or self-care (01) ==
LOC: JER 18:03
DX: F10.20 Alcohol dependence, uncomplicated (principal); M25.511 Pain in right shoulder
CPT/HCPCS: 99281-25

== ENCOUNTER 2021-03-12 19:41 | Emergency (ER) | payer OTHER ==
[2021-03-12 21:09] VITALS: BP 148/89; PULSE 96; TEMP 98; BMI 33.7
== END 2021-03-12 21:20 | disposition left against medical advice (07) ==
LOC: JER 19:41
DX: F10.929 Alcohol use, unspecified with intoxication, unspecified (principal)
CPT/HCPCS: 99281-25

== ENCOUNTER 2021-03-14 15:21 | Emergency (ER) | payer OTHER ==
[2021-03-14 15:31] VITALS: BP 133/88; PULSE 83; TEMP 97.8; BMI 40.6
== END 2021-03-14 18:43 | disposition left against medical advice (07) ==
LOC: JER 15:21
DX: M25.561 Pain in right knee (principal)
CPT/HCPCS: 99283-25

== ENCOUNTER 2021-03-21 19:39 | Emergency (ER) | payer OTHER ==
[2021-03-21 20:00] VITALS: BP 96/69; PULSE 84; TEMP 97.9; BMI 35.9
[2021-03-21] MEDS ORDERED: METHOCARBAMOL 500 MG TABLET PO ONE (21:52)
[2021-03-21] MEDS ORDERED: METHOCARBAMOL 500 MG TABLET ONE (23:31)
[2021-03-22] MEDS ORDERED: LIDOCAINE 5% TOPICAL PATCH TP ONE (01:37)
[2021-03-22] MEDS ORDERED: LIDOCAINE PATCH REMOVAL MC ONE (14:00)
== END 2021-03-22 07:15 | disposition home or self-care (01) ==
LOC: JER 19:39
DX: F10.20 Alcohol dependence, uncomplicated (principal)
CPT/HCPCS: 99283-25

== ENCOUNTER 2021-03-22 20:02 | Emergency (ER) | payer OTHER ==
[2021-03-22 20:25] VITALS: BMI 43.0
[2021-03-22] MEDS ORDERED: ACETAMINOPHEN 325 MG TABLET (FP) PO ONE (21:16)
[2021-03-22] MEDS ORDERED: ACETAMINOPHEN 325 MG TABLET (FP) ONE (21:22)
[2021-03-23 01:26] VITALS: TEMP 98.5
[2021-03-23 07:10] VITALS: BP 112/55; PULSE 92
== END 2021-03-23 09:36 | disposition home or self-care (01) ==
LOC: JER 20:02
DX: S00.91XA Abrasion of unspecified part of head, initial encounter (principal); F10.29 Alcohol dependence with unspecified alcohol-induced disorder; W19.XXXA Unspecified fall, initial encounter; Y92.9 Unspecified place or not applicable
CPT/HCPCS: 99284-25

== ENCOUNTER 2021-03-25 20:22 | Emergency (ER) | payer OTHER ==
[2021-03-25 21:30] VITALS: BMI 26.6
[2021-03-25] MEDS ORDERED: ACETAMINOPHEN 325 MG TABLET (FP) PO ONE (22:21)
[2021-03-25] MEDS ORDERED: ACETAMINOPHEN 325 MG TABLET (FP) ONE (22:56)
[2021-03-26 01:30] VITALS: BP 148/77; PULSE 97; TEMP 97.9
== END 2021-03-26 01:59 | disposition home or self-care (01) ==
LOC: JER 20:22
DX: M54.9 Dorsalgia, unspecified (principal); G89.29 Other chronic pain
CPT/HCPCS: 99283-25

== ENCOUNTER 2021-03-31 10:32 | Emergency (ER) | payer OTHER ==
[2021-03-31 10:48] VITALS: BP 173/121; PULSE 108; TEMP 97; BMI 38.2
== END 2021-03-31 15:15 | disposition left against medical advice (07) ==
LOC: JER 10:32
DX: R07.9 Chest pain, unspecified (principal)
CPT/HCPCS: 93005; 93010; 99283-25

== ENCOUNTER 2021-04-01 21:32 | Inpatient (IN) | payer OTHER ==
[2021-04-02 05:34] VITALS: BMI 20.7
[2021-04-02] MEDS ORDERED: MAGNESIUM CITRATE 300 ML BOTTLE PO PRN (09:31)
[2021-04-02] MEDS ORDERED: MAGNESIUM HYDROX 2400MG/30ML ORAL SUSPENSION 30 ML CUP PO PRN (09:31)
[2021-04-02] MEDS ORDERED: IBUPROFEN 400 MG TABLET (FP) PO PRN (09:31)
[2021-04-02] MEDS ORDERED: ACETAMINOPHEN 325 MG TABLET (FP) PO PRN ×2 (09:31)
[2021-04-02] MEDS ORDERED: ONDANSETRON *ODT* 4 MG TABLET SL PRN (09:31)
[2021-04-02] MEDS ORDERED: MAG HYDROX/AL HYDROX/SIMETH 30 ML UNIT-DOSE CUP PO PRN (09:31)
[2021-04-02] MEDS ORDERED: BISMUTH SUBSALICYLATE 262 MG/15 ML BTL PO PRN (09:31)
[2021-04-02] MEDS ORDERED: NICOTINE 10 MG CARTRIDGE (INHALER) IH PRN (09:31)
[2021-04-02] MEDS ORDERED: MENTHOL/PHENOL 1 EACH UD MM PRN (09:31)
[2021-04-02] MEDS ORDERED: LORazepam 1 MG TABLET PO PRN (09:31)
[2021-04-02] MEDS ORDERED: METHOCARBAMOL 500 MG TABLET PO PRN (09:31)
[2021-04-02] MEDS ORDERED: BUDESONIDE/FORMETEROL FUMARATE 80/4.5 mcg INHALER IH SCH (10:00)
[2021-04-02] MEDS ORDERED: TIOTROPIUM BROMIDE 2.5 MCG (SPIRIVA) RESPIMAT INHALER IH SCH ×2 (10:00→15:19)
[2021-04-02] MEDS: PRENATAL VITAMINS W/ FOLIC ACID TABLET (FP) PO SCH (10:52)
[2021-04-02] MEDS: LORazepam 2 MG TABLET PO SCH ×4 (10:52→23:03)
[2021-04-02] MEDS: hydrOXYzine PAMOATE 25 MG CAPSULE (FP) PO SCH ×4 (10:52→23:03)
[2021-04-02] MEDS: amLODIPine BESYLATE 5 MG TABLET (FP) PO SCH (10:52)
[2021-04-02] MEDS: CALCIUM (OYSTER SHELL) 500 MG TABLET (FP) PO SCH (10:53)
[2021-04-02 17:01] LABS: ALBUMIN 2.8 g/dl (3.4-5.0); BLOOD UREA NITROGEN 8.4 mg/dL (7-18)
[2021-04-02 17:02] LABS: CALCIUM 8.3 mg/dL (8.5-10.1)
[2021-04-02 17:04] LABS: CREATININE 0.6 mg/dL (0.55-1.3)
[2021-04-02 17:05] LABS: HEMOGLOBIN 10.3 GM/dL (11.7-16.9); MCH 25.9 pg (25.7-33.7); MEAN CELL VOLUME 80.8 fl (80-96); MEAN PLT VOLUME 7.4 fl (7.5-11.1); PLATELET COUNT 254 10^3/uL (134-434); RBC 3.96 M/mm3 (4.00-5.60); RDW 24.4 % (11.9-15.9); WHITE BLOOD COUNT 8.3 K/mm3 (4.0-10.0)
[2021-04-02 17:06] LABS: BILIRUBIN,TOTAL 0.9 mg/dL (0.2-1)
[2021-04-02 17:09] LABS: TOT PROT 6.2 g/dl (6.4-8.2)
[2021-04-02] MEDS: THIAMINE HCL 100 MG TABLET (FP) PO SCH (22:52)
[2021-04-02] MEDS: MELATONIN 5 MG TABLETS PO SCH (23:02)
[2021-04-02] MEDS: BUDESONIDE/FORMETEROL FUMARATE 80/4.5 mcg INHALER IH SCH (23:03)
[2021-04-03] MEDS: LORazepam 2 MG TABLET PO SCH ×4 (05:23→22:11)
[2021-04-03] MEDS: hydrOXYzine PAMOATE 25 MG CAPSULE (FP) PO SCH ×5 (05:24→22:12)
[2021-04-03] MEDS ORDERED: BUDESONIDE/FORMETEROL FUMARATE 80/4.5 mcg INHALER IH SCH (10:00)
[2021-04-03] MEDS: amLODIPine BESYLATE 5 MG TABLET (FP) PO SCH (10:34)
[2021-04-03] MEDS: PRENATAL VITAMINS W/ FOLIC ACID TABLET (FP) PO SCH (10:35)
[2021-04-03] MEDS: BUDESONIDE/FORMETEROL FUMARATE 80/4.5 mcg INHALER IH SCH ×2 (10:36→22:13)
[2021-04-03] MEDS: TIOTROPIUM BROMIDE 2.5 MCG (SPIRIVA) RESPIMAT INHALER IH SCH (10:36)
[2021-04-03] MEDS ORDERED: POTASSIUM CHLORIDE ORAL LIQUID 20 MEQ/15 ML PO ONE ×2 (12:00→16:00)
[2021-04-03] MEDS: CALCIUM (OYSTER SHELL) 500 MG TABLET (FP) PO SCH (12:44)
[2021-04-03] MEDS: MELATONIN 5 MG TABLETS PO SCH (22:12)
[2021-04-03] MEDS: THIAMINE HCL 100 MG TABLET (FP) PO SCH (22:12)
[2021-04-04] MEDS: LORazepam 1 MG TABLET PO SCH ×2 (05:30→10:56)
[2021-04-04] MEDS: hydrOXYzine PAMOATE 25 MG CAPSULE (FP) PO SCH ×2 (05:31→10:57)
[2021-04-04 09:10] VITALS: BP 126/96; PULSE 104; TEMP 97.7
[2021-04-04] MEDS: amLODIPine BESYLATE 5 MG TABLET (FP) PO SCH (10:56)
[2021-04-04] MEDS: PRENATAL VITAMINS W/ FOLIC ACID TABLET (FP) PO SCH (10:56)
[2021-04-04] MEDS: CALCIUM (OYSTER SHELL) 500 MG TABLET (FP) PO SCH ×2 (10:56→10:57)
[2021-04-04] MEDS: TIOTROPIUM BROMIDE 2.5 MCG (SPIRIVA) RESPIMAT INHALER IH SCH (10:57)
[2021-04-04] MEDS: BUDESONIDE/FORMETEROL FUMARATE 80/4.5 mcg INHALER IH SCH (10:57)
[2021-04-05] MEDS ORDERED: LORazepam 0.5 MG TABLET PO PRN
[2021-04-05] MEDS ORDERED: LORazepam 0.5 MG TABLET PO SCH (05:00)
[2021-04-06] MEDS ORDERED: LORazepam 0.5 MG TABLET PO ONE (05:00)
== END 2021-04-04 13:35 | disposition left against medical advice (07) | DRG 770 ==
LOC: YASAS 21:32 → Y6N 04-02 11:22
PROVIDERS: ADMIT Allergy & Immunology; ATTEND Allergy & Immunology
PROC: HZ2ZZZZ Detoxification Services for Substance Abuse Treatment (ICD-10-PCS; principal; 2021-04-02)
DX: F10.230 Alcohol dependence with withdrawal, uncomplicated (principal); I10 Essential (primary) hypertension; I48.91 Unspecified atrial fibrillation; K21.9 Gastro-esophageal reflux disease without esophagitis; E87.6 Hypokalemia; I71.4 Abdominal aortic aneurysm, without rupture; M54.50 Low back pain, unspecified; G89.29 Other chronic pain; M19.90 Unspecified osteoarthritis, unspecified site; J44.9 Chronic obstructive pulmonary disease, unspecified; C45.9 Mesothelioma, unspecified; E86.0 Dehydration; Z91.013 Allergy to seafood; Z59.00 Homelessness unspecified
CPT/HCPCS: 36415; 80053; 84132; 85027; 86780; C9803; U0003; U0005

== ENCOUNTER 2021-04-06 02:39 | Emergency (ER) | payer OTHER ==
[2021-04-06 03:08] VITALS: BP 127/81; PULSE 77; TEMP 98.4; BMI 32.3
[2021-04-06] MEDS ORDERED: ACETAMINOPHEN 1000 MG/100 ML VIAL IVPB ONE (06:21)
[2021-04-06] MEDS ORDERED: ACETAMINOPHEN INJECTION 100 ML IVPB ONE (06:27)
[2021-04-06 08:04] LABS: BASO % 0.7 % (0-2.0); EOS % 1.7 % (0-4.5); HEMATOCRIT 30.7 % (35.4-49); LYMPH % 17.6 % (8-40); MCH 26.4 pg (25.7-33.7); MCHC 32.5 g/dl (32.0-35.9); MEAN PLT VOLUME 7.8 fl (7.5-11.1); PLATELET COUNT 196 10^3/uL (134-434); RBC 3.79 M/mm3 (4.00-5.60); RDW 25.1 % (11.9-15.9); WHITE BLOOD COUNT 7.4 K/mm3 (4.0-10.0)
[2021-04-06 08:25] LABS: CHLORIDE 107 mmol/L (98-107); SODIUM 141 mmol/L (136-145)
[2021-04-06 08:29] LABS: ALBUMIN 2.7 g/dl (3.4-5.0); ANION GAP 9 MMOL/L (8-16); BLOOD UREA NITROGEN 11.7 mg/dL (7-18); CO2 24 mmol/L (21-32); GLUCOSE,RANDOM 83 mg/dL (74-106); LIPASE 42 U/L (73-393)
[2021-04-06 08:32] LABS: CREATININE 0.6 mg/dL (0.55-1.3); SGOT/AST 32 U/L (15-37); SGPT/ALT 32 U/L (13-61)
[2021-04-06 08:33] LABS: BILIRUBIN,TOTAL 1.1 mg/dL (0.2-1); TOT PROT 6.2 g/dl (6.4-8.2)
[2021-04-06 08:35] LABS: ALK PHOS 96 U/L (45-117)
[2021-04-06] MEDS ORDERED: ONDANSETRON 4 MG TABLET PO ONE (11:08)
[2021-04-06 12:06] LABS: ANISOCYTOSIS 1+; MACROCYTOSIS 0; PLATELET ESTIMATE NORMAL
== END 2021-04-06 12:12 ==
LOC: JER 02:39
DX: R07.9 Chest pain, unspecified (principal)
CPT/HCPCS: 36415; 71046-TC-FY; 80053; 82550; 83690; 84484; 85025; 93005; 93010; 99284-25; J0131

== ENCOUNTER 2021-04-07 00:29 | Inpatient (IN) | payer OTHER ==
[2021-04-07 02:04] VITALS: BMI 32.3
[2021-04-07] MEDS ORDERED: MENTHOL/PHENOL 1 EACH UD MM PRN (09:17)
[2021-04-07] MEDS ORDERED: ACETAMINOPHEN 325 MG TABLET (FP) PO PRN ×2 (09:17)
[2021-04-07] MEDS ORDERED: ONDANSETRON *ODT* 4 MG TABLET SL PRN (09:17)
[2021-04-07] MEDS ORDERED: MAGNESIUM CITRATE 300 ML BOTTLE PO PRN (09:17)
[2021-04-07] MEDS ORDERED: IBUPROFEN 400 MG TABLET (FP) PO PRN (09:17)
[2021-04-07] MEDS ORDERED: MAGNESIUM HYDROX 2400MG/30ML ORAL SUSPENSION 30 ML CUP PO PRN (09:17)
[2021-04-07] MEDS ORDERED: LORazepam 1 MG TABLET PO PRN (09:17)
[2021-04-07] MEDS ORDERED: BISMUTH SUBSALICYLATE 524 MG/30 ML PO PRN (09:17)
[2021-04-07] MEDS ORDERED: MAG HYDROX/AL HYDROX/SIMETH 30 ML UNIT-DOSE CUP PO PRN (09:17)
[2021-04-07] MEDS ORDERED: amLODIPine BESYLATE 5 MG TABLET (FP) ONE (10:12)
[2021-04-07] MEDS ORDERED: LORazepam 2 MG TABLET ONE (10:12)
[2021-04-07] MEDS: amLODIPine BESYLATE 5 MG TABLET (FP) PO SCH (10:13)
[2021-04-07] MEDS: LORazepam 2 MG TABLET PO SCH ×3 (10:14→22:22)
[2021-04-07] MEDS: PRENATAL VITAMINS W/ FOLIC ACID TABLET (FP) PO SCH (11:39)
[2021-04-07] MEDS: hydrOXYzine PAMOATE 25 MG CAPSULE (FP) PO SCH ×4 (11:42→22:22)
[2021-04-07] MEDS ORDERED: LISINOPRIL 5 MG TABLET PO ONE (14:19)
[2021-04-07] MEDS: THIAMINE HCL 100 MG TABLET (FP) PO SCH (22:21)
[2021-04-07] MEDS: MELATONIN 5 MG TABLETS PO SCH (22:22)
[2021-04-08] MEDS: hydrOXYzine PAMOATE 25 MG CAPSULE (FP) PO SCH ×6 (06:49→22:28)
[2021-04-08] MEDS: LORazepam 2 MG TABLET PO SCH ×4 (06:50→22:28)
[2021-04-08] MEDS: METHOCARBAMOL 500 MG TABLET PO PRN (06:55)
[2021-04-08] MEDS: PRENATAL VITAMINS W/ FOLIC ACID TABLET (FP) PO SCH (10:29)
[2021-04-08] MEDS: amLODIPine BESYLATE 5 MG TABLET (FP) PO SCH (10:29)
[2021-04-08] MEDS: MELATONIN 5 MG TABLETS PO SCH (22:28)
[2021-04-08] MEDS: THIAMINE HCL 100 MG TABLET (FP) PO SCH (22:28)
[2021-04-08] MEDS ORDERED: METOPROLOL TARTRATE 25 MG TABLET (FP) PO ONE (22:40)
[2021-04-08] MEDS ORDERED: METOPROLOL TARTRATE 50 MG TABLET (FP) PO ONE (23:00)
[2021-04-09] MEDS: LORazepam 1 MG TABLET PO SCH ×4 (06:37→22:45)
[2021-04-09] MEDS: METHOCARBAMOL 500 MG TABLET PO PRN (06:38)
[2021-04-09] MEDS: hydrOXYzine PAMOATE 25 MG CAPSULE (FP) PO SCH ×5 (06:38→22:45)
[2021-04-09] MEDS: amLODIPine BESYLATE 5 MG TABLET (FP) PO SCH (10:40)
[2021-04-09] MEDS: PRENATAL VITAMINS W/ FOLIC ACID TABLET (FP) PO SCH (10:40)
[2021-04-09 14:58] LABS: HEMOGLOBIN 9.9 GM/dL (11.7-16.9); MCH 25.9 pg (25.7-33.7); MCHC 31.8 g/dl (32.0-35.9); MEAN CELL VOLUME 81.3 fl (80-96); MEAN PLT VOLUME 7.8 fl (7.5-11.1); PLATELET COUNT 205 10^3/uL (134-434); RBC 3.82 M/mm3 (4.00-5.60); RDW 25.8 % (11.9-15.9); WHITE BLOOD COUNT 5.6 K/mm3 (4.0-10.0)
[2021-04-09 15:04] LABS: ALBUMIN 2.8 g/dl (3.4-5.0); BLOOD UREA NITROGEN 7.4 mg/dL (7-18); CALCIUM 8.7 mg/dL (8.5-10.1)
[2021-04-09 15:07] LABS: CREATININE 0.6 mg/dL (0.55-1.3)
[2021-04-09 15:09] LABS: BILIRUBIN,TOTAL 0.5 mg/dL (0.2-1)
[2021-04-09] MEDS ORDERED: cloNIDine HCL 0.1 MG TABLET PO ONE (21:17)
[2021-04-09] MEDS: MELATONIN 5 MG TABLETS PO SCH (22:45)
[2021-04-09] MEDS: THIAMINE HCL 100 MG TABLET (FP) PO SCH (22:46)
[2021-04-10] MEDS ORDERED: LORazepam 0.5 MG TABLET PO PRN
[2021-04-10] MEDS: hydrOXYzine PAMOATE 25 MG CAPSULE (FP) PO SCH ×5 (07:50→22:04)
[2021-04-10] MEDS: LORazepam 0.5 MG TABLET PO SCH ×4 (07:50→22:04)
[2021-04-10] MEDS: amLODIPine BESYLATE 5 MG TABLET (FP) PO SCH (11:19)
[2021-04-10] MEDS: PRENATAL VITAMINS W/ FOLIC ACID TABLET (FP) PO SCH (11:19)
[2021-04-10 21:18] VITALS: PULSE 91
[2021-04-10] MEDS: MELATONIN 5 MG TABLETS PO SCH (22:04)
[2021-04-10] MEDS: THIAMINE HCL 100 MG TABLET (FP) PO SCH (22:04)
[2021-04-11] MEDS ORDERED: LORazepam 0.5 MG TABLET PO ONE (05:00)
[2021-04-11 06:23] VITALS: BP 149/79; TEMP 97.3
[2021-04-11] MEDS: hydrOXYzine PAMOATE 25 MG CAPSULE (FP) PO SCH (06:23)
== END 2021-04-11 09:49 | disposition home or self-care (01) | DRG 775 ==
LOC: YASAS 00:29 → Y3N 09:57 → Y6N 11:15 → Y3N 11:32
PROVIDERS: ADMIT Allergy & Immunology; ATTEND Allergy & Immunology
PROC: HZ2ZZZZ Detoxification Services for Substance Abuse Treatment (ICD-10-PCS; principal; 2021-04-07)
DX: F10.230 Alcohol dependence with withdrawal, uncomplicated (principal); G23.8 Other specified degenerative diseases of basal ganglia; I10 Essential (primary) hypertension; J44.9 Chronic obstructive pulmonary disease, unspecified; K21.9 Gastro-esophageal reflux disease without esophagitis; Z85.118 Personal history of other malignant neoplasm of bronchus and lung; Z99.89 Dependence on other enabling machines and devices; Z91.013 Allergy to seafood
CPT/HCPCS: 36415; 80053; 83036; 85027; 86780; 93005; 93010; C9803; J0735; U0003; U0005

== ENCOUNTER 2021-04-13 17:51 | Emergency (ER) | payer OTHER ==
[2021-04-13 18:38] VITALS: BP 110/73; PULSE 85; TEMP 97.2; BMI 33.7
== END 2021-04-14 06:40 | disposition home or self-care (01) ==
LOC: JER 17:51
DX: F10.929 Alcohol use, unspecified with intoxication, unspecified (principal)
CPT/HCPCS: 99283-25

== ENCOUNTER 2021-04-14 06:57 | Inpatient (IN) | payer OTHER ==
[2021-04-14 07:18] VITALS: BMI 34.4
[2021-04-14] MEDS ORDERED: MENTHOL/PHENOL 1 EACH UD MM PRN (10:36)
[2021-04-14] MEDS ORDERED: MAGNESIUM CITRATE 300 ML BOTTLE PO PRN (10:36)
[2021-04-14] MEDS ORDERED: BISMUTH SUBSALICYLATE 524 MG/30 ML PO PRN (10:36)
[2021-04-14] MEDS ORDERED: ONDANSETRON *ODT* 4 MG TABLET SL PRN (10:36)
[2021-04-14] MEDS ORDERED: ACETAMINOPHEN 325 MG TABLET (FP) PO PRN ×2 (10:36)
[2021-04-14] MEDS ORDERED: MAG HYDROX/AL HYDROX/SIMETH 30 ML UNIT-DOSE CUP PO PRN (10:36)
[2021-04-14] MEDS ORDERED: LORazepam 1 MG TABLET PO PRN (10:36)
[2021-04-14] MEDS ORDERED: MAGNESIUM HYDROX 2400MG/30ML ORAL SUSPENSION 30 ML CUP PO PRN (10:36)
[2021-04-14] MEDS ORDERED: BACITRACIN 15 GM TUBE TOPICAL OINTMENT TP SCH (10:45)
[2021-04-14] MEDS: LORazepam 2 MG TABLET PO SCH ×3 (11:59→22:36)
[2021-04-14] MEDS: BACITRACIN 0.9 GM PACKET TP SCH (12:00)
[2021-04-14] MEDS ORDERED: ALBUTEROL SO4 HFA INHALER IH PRN (12:02)
[2021-04-14] MEDS: amLODIPine BESYLATE 5 MG TABLET (FP) PO SCH (13:32)
[2021-04-14] MEDS: hydrOXYzine PAMOATE 25 MG CAPSULE (FP) PO SCH ×3 (13:32→22:35)
[2021-04-14] MEDS ORDERED: TIOTROPIUM BROMIDE 2.5 MCG (SPIRIVA) RESPIMAT INHALER IH SCH (22:00)
[2021-04-14] MEDS: THIAMINE HCL 100 MG TABLET (FP) PO SCH (22:35)
[2021-04-14] MEDS: BUDESONIDE/FORMETEROL FUMARATE 80/4.5 mcg INHALER IH SCH (22:36)
[2021-04-14] MEDS: MELATONIN 5 MG TABLETS PO SCH (22:36)
[2021-04-15] MEDS: LORazepam 2 MG TABLET PO SCH ×4 (05:23→22:00)
[2021-04-15] MEDS: hydrOXYzine PAMOATE 25 MG CAPSULE (FP) PO SCH ×5 (05:23→21:53)
[2021-04-15] MEDS: BACITRACIN 0.9 GM PACKET TP SCH ×2 (10:09→10:19)
[2021-04-15] MEDS: PRENATAL VITAMINS W/ FOLIC ACID TABLET (FP) PO SCH (10:09)
[2021-04-15] MEDS: TIOTROPIUM BROMIDE 2.5 MCG (SPIRIVA) RESPIMAT INHALER IH SCH ×2 (10:09→10:51)
[2021-04-15] MEDS: BUDESONIDE/FORMETEROL FUMARATE 80/4.5 mcg INHALER IH SCH ×3 (10:09→21:54)
[2021-04-15] MEDS: amLODIPine BESYLATE 5 MG TABLET (FP) PO SCH (10:10)
[2021-04-15 10:49] LABS: HEMATOCRIT 31.4 % (35.4-49); HEMOGLOBIN 10.1 GM/dL (11.7-16.9); MCHC 32.1 g/dl (32.0-35.9); MEAN CELL VOLUME 81.2 fl (80-96); MEAN PLT VOLUME 7.8 fl (7.5-11.1); PLATELET COUNT 433 10^3/uL (134-434); RBC 3.87 M/mm3 (4.00-5.60); RDW 24.3 % (11.9-15.9); WHITE BLOOD COUNT 6.8 K/mm3 (4.0-10.0)
[2021-04-15 11:27] LABS: ALBUMIN 2.7 g/dl (3.4-5.0); CALCIUM 8.2 mg/dL (8.5-10.1)
[2021-04-15 11:28] LABS: BLOOD UREA NITROGEN 9.2 mg/dL (7-18)
[2021-04-15 11:31] LABS: CREATININE 0.6 mg/dL (0.55-1.3)
[2021-04-15 11:32] LABS: BILIRUBIN,TOTAL 0.5 mg/dL (0.2-1); TOT PROT 6.1 g/dl (6.4-8.2)
[2021-04-15] MEDS: IBUPROFEN 400 MG TABLET (FP) PO PRN (14:26)
[2021-04-15] MEDS: METHOCARBAMOL 500 MG TABLET PO PRN (14:26)
[2021-04-15] MEDS: MELATONIN 5 MG TABLETS PO SCH (21:52)
[2021-04-15] MEDS: THIAMINE HCL 100 MG TABLET (FP) PO SCH (21:53)
[2021-04-16] MEDS: hydrOXYzine PAMOATE 25 MG CAPSULE (FP) PO SCH ×5 (05:28→22:31)
[2021-04-16] MEDS: LORazepam 1 MG TABLET PO SCH ×4 (05:28→22:30)
[2021-04-16] MEDS: METHOCARBAMOL 500 MG TABLET PO PRN ×2 (09:58→22:32)
[2021-04-16] MEDS: amLODIPine BESYLATE 5 MG TABLET (FP) PO SCH (09:58)
[2021-04-16] MEDS: BUDESONIDE/FORMETEROL FUMARATE 80/4.5 mcg INHALER IH SCH ×2 (10:04→22:31)
[2021-04-16] MEDS: TIOTROPIUM BROMIDE 2.5 MCG (SPIRIVA) RESPIMAT INHALER IH SCH (10:05)
[2021-04-16] MEDS: PRENATAL VITAMINS W/ FOLIC ACID TABLET (FP) PO SCH (10:05)
[2021-04-16] MEDS: BACITRACIN 0.9 GM PACKET TP SCH (10:05)
[2021-04-16] MEDS: THIAMINE HCL 100 MG TABLET (FP) PO SCH (22:31)
[2021-04-16] MEDS: MELATONIN 5 MG TABLETS PO SCH (22:34)
[2021-04-17] MEDS ORDERED: LORazepam 0.5 MG TABLET PO PRN
[2021-04-17] MEDS: hydrOXYzine PAMOATE 25 MG CAPSULE (FP) PO SCH ×5 (05:31→22:23)
[2021-04-17] MEDS: LORazepam 0.5 MG TABLET PO SCH ×4 (05:31→22:23)
[2021-04-17] MEDS ORDERED: amLODIPine BESYLATE 10 MG TABLET (FP) PO SCH (10:00)
[2021-04-17] MEDS: PRENATAL VITAMINS W/ FOLIC ACID TABLET (FP) PO SCH (10:48)
[2021-04-17] MEDS: BACITRACIN 0.9 GM PACKET TP SCH (10:49)
[2021-04-17] MEDS: IBUPROFEN 400 MG TABLET (FP) PO PRN (10:50)
[2021-04-17] MEDS: TIOTROPIUM BROMIDE 2.5 MCG (SPIRIVA) RESPIMAT INHALER IH SCH (10:50)
[2021-04-17] MEDS: METHOCARBAMOL 500 MG TABLET PO PRN (10:50)
[2021-04-17] MEDS: BUDESONIDE/FORMETEROL FUMARATE 80/4.5 mcg INHALER IH SCH ×2 (10:50→22:25)
[2021-04-17 21:23] VITALS: TEMP 98.2
[2021-04-17] MEDS: THIAMINE HCL 100 MG TABLET (FP) PO SCH (22:23)
[2021-04-17] MEDS: MELATONIN 5 MG TABLETS PO SCH (22:23)
[2021-04-18] MEDS ORDERED: LORazepam 0.5 MG TABLET PO ONE (05:00)
[2021-04-18 06:12] VITALS: BP 126/84; PULSE 84
[2021-04-18] MEDS: hydrOXYzine PAMOATE 25 MG CAPSULE (FP) PO SCH (07:01)
== END 2021-04-18 09:05 | disposition home or self-care (01) | DRG 775 ==
LOC: YASAS 06:57 → Y6N 11:16
PROVIDERS: ADMIT Allergy & Immunology; ATTEND Allergy & Immunology
PROC: HZ2ZZZZ Detoxification Services for Substance Abuse Treatment (ICD-10-PCS; principal; 2021-04-14)
DX: F10.230 Alcohol dependence with withdrawal, uncomplicated (principal); I10 Essential (primary) hypertension; J42 Unspecified chronic bronchitis; K21.9 Gastro-esophageal reflux disease without esophagitis; M54.50 Low back pain, unspecified; R60.0 Localized edema; E66.9 Obesity, unspecified; Z68.34 Body mass index [BMI] 34.0-34.9, adult; Z86.16 Personal history of COVID-19; Z99.89 Dependence on other enabling machines and devices; Z86.79 Personal history of other diseases of the circulatory system; Z91.013 Allergy to seafood
CPT/HCPCS: 36415; 73130-TC-LT-FY; 73130-TC-RT-FY; 80053; 85027; 86780; 99284-25; C9803; Q0162; U0003; U0005

== ENCOUNTER 2021-04-19 16:44 | Observation (INO) | payer OTHER ==
[2021-04-19 17:05] VITALS: BMI 35.9
[2021-04-19 21:39] LABS: BASO % 1.3 % (0-2.0); EOS % 2.7 % (0-4.5); HEMATOCRIT 33.3 % (35.4-49); HEMOGLOBIN 10.9 GM/dL (11.7-16.9); LYMPH % 28.8 % (8-40); MCH 25.8 pg (25.7-33.7); MCHC 32.7 g/dl (32.0-35.9); MEAN CELL VOLUME 78.9 fl (80-96); MEAN PLT VOLUME 6.7 fl (7.5-11.1); MONO % 7.8 % (3.8-10.2); NEUT % 59.4 % (42.8-82.8); PLATELET COUNT 507 10^3/uL (134-434); RBC 4.22 M/mm3 (4.00-5.60); RDW 23.3 % (11.9-15.9); WHITE BLOOD COUNT 7.5 K/mm3 (4.0-10.0)
[2021-04-19 21:57] LABS: CHLORIDE 107 mmol/L (98-107); SODIUM 143 mmol/L (136-145)
[2021-04-19 21:59] LABS: ANION GAP 10 MMOL/L (8-16); BLOOD UREA NITROGEN 10.4 mg/dL (7-18); CALCIUM 8.5 mg/dL (8.5-10.1); CO2 26 mmol/L (21-32); GLUCOSE,RANDOM 120 mg/dL (74-106)
[2021-04-19 22:03] LABS: CREATININE 0.6 mg/dL (0.55-1.3); SGOT/AST 39 U/L (15-37); SGPT/ALT 37 U/L (13-61)
[2021-04-19 22:04] LABS: BILIRUBIN,TOTAL 0.2 mg/dL (0.2-1); TOT PROT 7.1 g/dl (6.4-8.2)
[2021-04-19 22:05] LABS: ALK PHOS 104 U/L (45-117)
[2021-04-19 22:36] LABS: ALBUMIN 3.5 g/dl (3.4-5.0)
[2021-04-19 23:30] LABS: ANISOCYTOSIS 1+; MACROCYTOSIS 0; OVALOCYTE 1+; PLATELET ESTIMATE INCREASED
[2021-04-20] MEDS ORDERED: LORazepam 1 MG TABLET PO PRN (00:39)
[2021-04-20] MEDS ORDERED: SIMETHICONE 80 MG TAB.CHEW (FP) PO PRN (00:42)
[2021-04-20] MEDS ORDERED: ALBUTEROL SO4 HFA INHALER IH PRN (01:04)
[2021-04-20] MEDS ORDERED: BUDESONIDE/FORMETEROL FUMARATE 80/4.5 mcg INHALER IH ONE (01:04)
[2021-04-20] MEDS: DOCUSATE SODIUM 100 MG CAPSULE (FP) PO SCH ×2 (09:40→21:02)
[2021-04-20] MEDS: FOLIC ACID 1 MG TABLET (FP) PO SCH (09:40)
[2021-04-20] MEDS: THIAMINE HCL 100 MG TABLET (FP) PO SCH (09:41)
[2021-04-20] MEDS: PANTOPRAZOLE SODIUM 40 MG VIAL IVPUSH SCH (09:41)
[2021-04-20] MEDS: ENOXAPARIN NA (PORCINE) 40 MG/0.4 ML DISP.SYRIN SQ SCH (09:41)
[2021-04-21] MEDS: FOLIC ACID 1 MG TABLET (FP) PO SCH (09:15)
[2021-04-21] MEDS: PANTOPRAZOLE SODIUM 40 MG VIAL IVPUSH SCH (09:15)
[2021-04-21] MEDS: ENOXAPARIN NA (PORCINE) 40 MG/0.4 ML DISP.SYRIN SQ SCH (09:15)
[2021-04-21] MEDS: DOCUSATE SODIUM 100 MG CAPSULE (FP) PO SCH ×2 (09:15→21:28)
[2021-04-21] MEDS: THIAMINE HCL 100 MG TABLET (FP) PO SCH (09:15)
[2021-04-22 08:07] LABS: PH,URINE 7.5 (5.0-8.0); URINE APPEARANCE CLEAR; URINE BILIRUBIN NEGATIVE (NEGATIVE); URINE COLOR YELLOW; URINE GLUCOSE (UA) NEGATIVE (NEGATIVE); URINE KETONE NEGATIVE (NEGATIVE); URINE LEUK ESTERASE NEGATIVE (NEGATIVE); URINE NITRITE NEGATIVE (NEGATIVE); URINE PROTEIN NEGATIVE (NEGATIVE)
[2021-04-22 10:51] LABS: BASO % 0.7 % (0-2.0); EOS % 2.3 % (0-4.5); HEMATOCRIT 31.9 % (35.4-49); HEMOGLOBIN 10.5 GM/dL (11.7-16.9); LYMPH % 13.9 % (8-40); MCH 25.3 pg (25.7-33.7); MCHC 32.9 g/dl (32.0-35.9); MEAN PLT VOLUME 7.2 fl (7.5-11.1); NEUT % 75.1 % (42.8-82.8); PLATELET COUNT 317 10^3/uL (134-434); RBC 4.15 M/mm3 (4.00-5.60); RDW 22.8 % (11.9-15.9); WHITE BLOOD COUNT 9.2 K/mm3 (4.0-10.0)
[2021-04-22] MEDS: FOLIC ACID 1 MG TABLET (FP) PO SCH (10:55)
[2021-04-22] MEDS: DOCUSATE SODIUM 100 MG CAPSULE (FP) PO SCH ×2 (10:55→21:01)
[2021-04-22] MEDS: ENOXAPARIN NA (PORCINE) 40 MG/0.4 ML DISP.SYRIN SQ SCH (10:55)
[2021-04-22] MEDS: PANTOPRAZOLE SODIUM 40 MG VIAL IVPUSH SCH (10:56)
[2021-04-22] MEDS: THIAMINE HCL 100 MG TABLET (FP) PO SCH (10:56)
[2021-04-22 13:23] LABS: CHLORIDE 106 mmol/L (98-107); SODIUM 139 mmol/L (136-145)
[2021-04-22 13:26] LABS: ANION GAP 8 MMOL/L (8-16); CO2 24 mmol/L (21-32); GLUCOSE,RANDOM 115 mg/dL (74-106)
[2021-04-22 13:27] LABS: BLOOD UREA NITROGEN 4.4 mg/dL (7-18)
[2021-04-22 13:28] LABS: CREATININE 0.7 mg/dL (0.55-1.3); IRON SERUM 42 ug/dL (50-175)
[2021-04-22 13:29] LABS: SGOT/AST 17 U/L (15-37); SGPT/ALT 25 U/L (13-61); TOTAL IRON BINDING CAPACITY 400 ug/dL (250-450)
[2021-04-22 13:31] LABS: BILIRUBIN,TOTAL 0.5 mg/dL (0.2-1); TOT PROT 6.2 g/dl (6.4-8.2)
[2021-04-22 13:33] LABS: ALK PHOS 93 U/L (45-117)
[2021-04-23 08:05] VITALS: BP 158/77; PULSE 83; TEMP 98.1
[2021-04-23] MEDS: FOLIC ACID 1 MG TABLET (FP) PO SCH (09:38)
[2021-04-23] MEDS: DOCUSATE SODIUM 100 MG CAPSULE (FP) PO SCH (09:38)
[2021-04-23] MEDS: THIAMINE HCL 100 MG TABLET (FP) PO SCH (09:39)
[2021-04-23] MEDS: PANTOPRAZOLE SODIUM 40 MG VIAL IVPUSH SCH (09:39)
[2021-04-23] MEDS: ENOXAPARIN NA (PORCINE) 40 MG/0.4 ML DISP.SYRIN SQ SCH (09:39)
[2021-04-23] MEDS ORDERED: amLODIPine BESYLATE 5 MG TABLET (FP) PO SCH (10:00)
== END 2021-04-23 09:38 | disposition left against medical advice (07) ==
LOC: JER 16:44 → JERBED 23:55 → UNDOADMOB 23:55 → INTOOBSV 04-20 00:39 → OBSVTOIN 04-20 00:39 → J4W 04-20 08:19 → JERBED 04-20 08:19 → J4W 04-22 09:53
PROVIDERS: ADMIT Internal Medicine; ATTEND Family Medicine
DX: R07.9 Chest pain, unspecified (principal); M54.9 Dorsalgia, unspecified; G89.29 Other chronic pain; C45.7 Mesothelioma of other sites; F10.99 Alcohol use, unspecified with unspecified alcohol-induced disorder; E66.9 Obesity, unspecified; Z88.8 Allergy status to other drugs, medicaments and biological substances; I10 Essential (primary) hypertension; Z87.891 Personal history of nicotine dependence; I48.91 Unspecified atrial fibrillation; Z86.16 Personal history of COVID-19; M19.90 Unspecified osteoarthritis, unspecified site; J42 Unspecified chronic bronchitis; D64.9 Anemia, unspecified; Z91.013 Allergy to seafood; Z68.35 Body mass index [BMI] 35.0-35.9, adult
CPT/HCPCS: 36415; 80053; 81003; 82550; 82728; 83540; 83550; 84484; 85025; 93005; 93010; 99285-25; C9803; G0378; U0003; U0005

== ENCOUNTER 2021-04-24 18:54 | Emergency (ER) | payer OTHER ==
[2021-04-24 19:07] VITALS: BP 123/77; PULSE 92; TEMP 98.5; BMI 45.1
== END 2021-04-24 23:43 ==
LOC: JER 18:54
DX: M54.89 Other dorsalgia (principal); G89.29 Other chronic pain
CPT/HCPCS: 99282-25

== ENCOUNTER 2021-04-28 12:11 | Emergency (ER) | payer OTHER ==
[2021-04-28 12:18] VITALS: BP 122/80; PULSE 98; TEMP 97; BMI 33.0
== END 2021-04-28 15:37 | disposition home or self-care (01) ==
LOC: JER 12:11
DX: R06.00 Dyspnea, unspecified (principal)
CPT/HCPCS: 99283-25; 99284-25

== ENCOUNTER → 2021-04-29 | Emergency (ER) | payer OTHER ==
[2021-04-29 17:19] VITALS: BP 119/76; PULSE 90; TEMP 98.3; BMI 33.0
== END ==
LOC: JER 16:20
DX: M25.562 Pain in left knee (principal); M25.561 Pain in right knee; M54.50 Low back pain, unspecified
CPT/HCPCS: 99281-25

== ENCOUNTER 2021-04-30 20:09 | Emergency (ER) | payer OTHER ==
[2021-04-30 20:13] VITALS: BMI 28.7
[2021-05-01 02:06] VITALS: TEMP 98.5
[2021-05-01] MEDS ORDERED: morphine SULFATE IMMEDIATE RELEASE 30 MG TAB PO ONE (04:50)
[2021-05-01] MEDS ORDERED: morphine SULFATE IMMEDIATE RELEASE 30 MG TAB ONE (06:10)
[2021-05-01 06:57] VITALS: BP 130/73; PULSE 88
== END 2021-05-01 06:58 | disposition home or self-care (01) ==
LOC: JER 20:09
DX: M54.9 Dorsalgia, unspecified (principal)
CPT/HCPCS: 93005; 93010; 99284-25

== ENCOUNTER 2021-05-01 15:57 | Emergency (ER) | payer OTHER ==
[2021-05-01 16:27] VITALS: BP 108/66; PULSE 74; TEMP 98; BMI 30.1
[2021-05-01] MEDS ORDERED: KETOROLAC TROMETHAMINE 30 MG/1 ML VIAL IM ONE (18:28)
== END 2021-05-01 23:38 | disposition home or self-care (01) ==
LOC: JER 15:57
PROC: 3E0233Z Introduction of Anti-inflammatory into Muscle, Percutaneous Approach (ICD-10-PCS; principal; 2021-05-01)
DX: M54.50 Low back pain, unspecified (principal); M25.561 Pain in right knee; M25.562 Pain in left knee
CPT/HCPCS: 96372; 99284-25

== ENCOUNTER 2021-05-03 17:57 | Emergency (ER) | payer OTHER ==
[2021-05-03 18:28] VITALS: BP 122/80; PULSE 94; TEMP 98; BMI 30.1
[2021-05-03] MEDS ORDERED: ACETAMINOPHEN 325 MG TABLET (FP) PO ONE (19:20)
[2021-05-03] MEDS ORDERED: ACETAMINOPHEN 325 MG TABLET (FP) ONE (19:37)
== END 2021-05-03 22:03 | disposition home or self-care (01) ==
LOC: JERFT 17:57 → JER 17:57 → JERFT 22:03
DX: M54.9 Dorsalgia, unspecified (principal)
CPT/HCPCS: 99283-25

== ENCOUNTER 2021-05-04 18:48 | Emergency (ER) | payer OTHER ==
[2021-05-04 19:36] VITALS: BMI 31.5
[2021-05-05 05:06] VITALS: BP 112/64; PULSE 88; TEMP 99.1
== END 2021-05-05 08:30 | disposition home or self-care (01) ==
LOC: JER 18:48
DX: F10.10 Alcohol abuse, uncomplicated (principal)
CPT/HCPCS: 99281-25

== ENCOUNTER 2021-05-10 22:04 | Emergency (ER) | payer OTHER ==
[2021-05-10 22:23] VITALS: BP 127/78; PULSE 78; TEMP 98.1; BMI 33.0
== END 2021-05-11 06:07 | disposition home or self-care (01) ==
LOC: JER 22:04
DX: M79.671 Pain in right foot (principal)
CPT/HCPCS: 99281-25

== ENCOUNTER 2021-05-11 08:34 | Inpatient (IN) | payer OTHER ==
[2021-05-11 10:01] VITALS: BMI 33.5
[2021-05-11] MEDS ORDERED: hydrOXYzine PAMOATE 25 MG CAPSULE (FP) PO PRN (10:27)
[2021-05-11] MEDS ORDERED: DICYCLOMINE HCL 10 MG CAPSULE PO PRN (10:27)
[2021-05-11] MEDS ORDERED: MAGNESIUM CITRATE 300 ML BOTTLE PO PRN (10:27)
[2021-05-11] MEDS ORDERED: ONDANSETRON *ODT* 4 MG TABLET SL PRN (10:27)
[2021-05-11] MEDS ORDERED: IBUPROFEN 400 MG TABLET (FP) PO PRN (10:27)
[2021-05-11] MEDS ORDERED: MENTHOL/PHENOL 1 EACH UD MM PRN (10:27)
[2021-05-11] MEDS ORDERED: ACETAMINOPHEN 325 MG TABLET (FP) PO PRN ×2 (10:27)
[2021-05-11] MEDS ORDERED: MAGNESIUM HYDROX 2400MG/30ML ORAL SUSPENSION 30 ML CUP PO PRN (10:27)
[2021-05-11] MEDS ORDERED: MAG HYDROX/AL HYDROX/SIMETH 30 ML UNIT-DOSE CUP PO PRN (10:27)
[2021-05-11] MEDS ORDERED: BISMUTH SUBSALICYLATE 524 MG/30 ML PO PRN (10:27)
[2021-05-11] MEDS ORDERED: diazePAM 5 MG TABLET PO PRN (10:29)
[2021-05-11] MEDS ORDERED: HYDROCHLOROTHIAZIDE 25 MG TABLET (FP) PO ONE (10:35)
[2021-05-11] MEDS: diazePAM 5 MG TABLET PO SCH ×3 (11:13→22:16)
[2021-05-11] MEDS: BACITRACIN 0.9 GM PACKET TP SCH ×2 (11:15→22:15)
[2021-05-11] MEDS: THIAMINE HCL 100 MG TABLET (FP) PO SCH (22:15)
[2021-05-11] MEDS: MELATONIN 5 MG TABLETS PO SCH (22:16)
[2021-05-12] MEDS: diazePAM 5 MG TABLET PO SCH ×2 (06:30→17:50)
[2021-05-12] MEDS: PRENATAL VITAMINS W/ FOLIC ACID TABLET (FP) PO SCH (10:24)
[2021-05-12] MEDS: BACITRACIN 0.9 GM PACKET TP SCH ×2 (10:24→23:01)
[2021-05-12] MEDS ORDERED: METHOCARBAMOL 500 MG TABLET PO PRN (17:51)
[2021-05-12] MEDS: THIAMINE HCL 100 MG TABLET (FP) PO SCH (23:01)
[2021-05-12] MEDS: MELATONIN 5 MG TABLETS PO SCH (23:01)
[2021-05-13] MEDS ORDERED: diazePAM 5 MG TABLET PO ONE (06:00)
[2021-05-13] MEDS: PRENATAL VITAMINS W/ FOLIC ACID TABLET (FP) PO SCH (10:24)
[2021-05-13] MEDS: BACITRACIN 0.9 GM PACKET TP SCH ×2 (12:25→23:07)
[2021-05-13 17:37] LABS: HEMATOCRIT 30.6 % (35.4-49); HEMOGLOBIN 9.7 GM/dL (11.7-16.9); MCHC 31.6 g/dl (32.0-35.9); MEAN CELL VOLUME 79.2 fl (80-96); PLATELET COUNT 257 10^3/uL (134-434); RBC 3.86 M/mm3 (4.00-5.60); RDW 23.4 % (11.9-15.9)
[2021-05-13 17:52] LABS: BLOOD UREA NITROGEN 9.2 mg/dL (7-18); CALCIUM 8.8 mg/dL (8.5-10.1)
[2021-05-13 17:55] LABS: CREATININE 0.8 mg/dL (0.55-1.3)
[2021-05-13 17:57] LABS: BILIRUBIN,TOTAL 0.5 mg/dL (0.2-1); TOT PROT 6.4 g/dl (6.4-8.2)
[2021-05-13] MEDS: THIAMINE HCL 100 MG TABLET (FP) PO SCH (23:07)
[2021-05-13] MEDS: MELATONIN 5 MG TABLETS PO SCH (23:07)
[2021-05-14] MEDS ORDERED: diazePAM 5 MG TABLET PO ONE (06:00)
[2021-05-14 09:15] VITALS: BP 119/71; PULSE 93; TEMP 97.1
[2021-05-14] MEDS ORDERED: POTASSIUM CHLORIDE ORAL LIQUID 20 MEQ/15 ML PO SCH (10:45)
== END 2021-05-14 09:22 | disposition home or self-care (01) | DRG 775 ==
LOC: YASAS 08:34 → Y3N 09:13
PROVIDERS: ADMIT Allergy & Immunology; ATTEND Allergy & Immunology
PROC: HZ2ZZZZ Detoxification Services for Substance Abuse Treatment (ICD-10-PCS; principal; 2021-05-11)
DX: F10.230 Alcohol dependence with withdrawal, uncomplicated (principal); F10.220 Alcohol dependence with intoxication, uncomplicated; I10 Essential (primary) hypertension; D64.9 Anemia, unspecified; L97.519 Non-pressure chronic ulcer of other part of right foot with unspecified severity; K21.9 Gastro-esophageal reflux disease without esophagitis; E87.6 Hypokalemia; J42 Unspecified chronic bronchitis; C45.9 Mesothelioma, unspecified; Z86.16 Personal history of COVID-19; Z91.013 Allergy to seafood
CPT/HCPCS: 36415; 80053; 85027; 86780; C9803; U0003; U0005

== ENCOUNTER 2021-05-14 14:51 | Emergency (ER) | payer OTHER ==
[2021-05-14 15:01] VITALS: BP 100/68; PULSE 81; TEMP 97.4; BMI 37.3
== END 2021-05-14 17:30 | disposition left against medical advice (07) ==
LOC: JER 14:51
DX: F10.10 Alcohol abuse, uncomplicated (principal); M54.50 Low back pain, unspecified
CPT/HCPCS: 99281-25

== ENCOUNTER 2021-05-15 18:30 | Emergency (ER) | payer OTHER ==
[2021-05-15 18:47] VITALS: TEMP 98.1; BMI 35.9
[2021-05-16 06:45] LABS: BASO % 0.3 % (0-2.0); EOS % 3.3 % (0-4.5); HEMATOCRIT 32.3 % (35.4-49); HEMOGLOBIN 10.4 GM/dL (11.7-16.9); LYMPH % 19.5 % (8-40); MCH 25.7 pg (25.7-33.7); MCHC 32.3 g/dl (32.0-35.9); MEAN CELL VOLUME 79.6 fl (80-96); MEAN PLT VOLUME 7.7 fl (7.5-11.1); MONO % 11.4 % (3.8-10.2); NEUT % 65.5 % (42.8-82.8); PLATELET COUNT 389 10^3/uL (134-434); RBC 4.06 M/mm3 (4.00-5.60); RDW 23.1 % (11.9-15.9); WHITE BLOOD COUNT 9.1 K/mm3 (4.0-10.0)
[2021-05-16 06:56] LABS: INR 1.25 (0.83-1.09)
[2021-05-16 07:02] LABS: CHLORIDE 103 mmol/L (98-107); SODIUM 138 mmol/L (136-145)
[2021-05-16 07:04] LABS: CALCIUM 8.3 mg/dL (8.5-10.1)
[2021-05-16 07:05] LABS: ALBUMIN 3.1 g/dl (3.4-5.0); ANION GAP 12 MMOL/L (8-16); BLOOD UREA NITROGEN 13.5 mg/dL (7-18); CO2 23 mmol/L (21-32); GLUCOSE,RANDOM 88 mg/dL (74-106)
[2021-05-16 07:08] LABS: CREATININE 0.7 mg/dL (0.55-1.3); SGOT/AST 33 U/L (15-37); SGPT/ALT 41 U/L (13-61)
[2021-05-16 07:09] LABS: BILIRUBIN,TOTAL 0.6 mg/dL (0.2-1)
[2021-05-16 07:10] LABS: TOT PROT 6.9 g/dl (6.4-8.2)
[2021-05-16 07:11] LABS: ALK PHOS 101 U/L (45-117)
[2021-05-16] MEDS ORDERED: LIDOCAINE 5% TOPICAL PATCH TP ONE (07:36)
[2021-05-16] MEDS ORDERED: KETOROLAC TROMETHAMINE 15 MG/ML VIAL IVPUSH ONE (07:36)
[2021-05-16] MEDS ORDERED: ACETAMINOPHEN 1000 MG/100 ML VIAL IVPB ONE (07:42)
[2021-05-16] MEDS ORDERED: ACETAMINOPHEN INJECTION 100 ML IVPB ONE (07:43)
[2021-05-16] MEDS ORDERED: KETOROLAC TROMETHAMINE 15 MG/ML VIAL ONE (07:43)
[2021-05-16] MEDS ORDERED: LIDOCAINE 5% TOPICAL PATCH ONE (07:43)
[2021-05-16 08:32] VITALS: BP 126/66; PULSE 85
[2021-05-16 08:50] LABS: ANISOCYTOSIS 2+; MACROCYTOSIS 1+; PLATELET ESTIMATE NORMAL
[2021-05-16] MEDS ORDERED: LIDOCAINE PATCH REMOVAL MC ONE (20:00)
== END 2021-05-16 08:40 | disposition left against medical advice (07) ==
LOC: JER 18:30
DX: S62.609A Fracture of unspecified phalanx of unspecified finger, initial encounter for closed fracture (principal)
CPT/HCPCS: 36415; 70450-TC; 70486-TC; 71101-TC-RT-FY; 72125-TC; 73130-TC-LT-FY; 80053; 82550; 84484; 85025; 85610; 85730; 86850; 86900; 86901; 93005; 93010; 99285-25; C9803; J0131; U0003; U0005

== ENCOUNTER 2021-05-16 22:23 | Emergency (ER) | payer OTHER ==
[2021-05-16 22:43] VITALS: BP 118/71; PULSE 84; TEMP 98.3; BMI 34.4
[2021-05-17] MEDS ORDERED: IBUPROFEN 600 MG TABLET (FP) PO ONE (07:12)
[2021-05-17] MEDS ORDERED: LIDOCAINE 5% TOPICAL PATCH TP ONE (07:12)
[2021-05-17] MEDS ORDERED: METHOCARBAMOL 500 MG TABLET PO ONE (07:12)
[2021-05-17] MEDS ORDERED: LIDOCAINE PATCH REMOVAL MC ONE (22:00)
== END 2021-05-17 09:25 | disposition home or self-care (01) ==
LOC: JER 22:23
DX: M54.9 Dorsalgia, unspecified (principal)
CPT/HCPCS: 99283-25

== ENCOUNTER 2021-05-22 17:14 | Emergency (ER) | payer OTHER ==
[2021-05-22 18:45] VITALS: BP 147/78; PULSE 68; TEMP 97.8; BMI 29.8
== END 2021-05-22 21:22 | disposition home or self-care (01) ==
LOC: JER 17:14
DX: R68.89 Other general symptoms and signs (principal); Z59.00 Homelessness unspecified
CPT/HCPCS: 99283-25

== ENCOUNTER 2021-05-23 13:03 | Emergency (ER) | payer OTHER ==
[2021-05-23 13:30] VITALS: BP 114/79; PULSE 79; BMI 38.0
[2021-05-23] MEDS ORDERED: METHOCARBAMOL 500 MG TABLET PO ONE (14:16)
[2021-05-23] MEDS ORDERED: METHOCARBAMOL 500 MG TABLET ONE (14:20)
== END 2021-05-23 15:00 | disposition left against medical advice (07) ==
LOC: JER 13:03
DX: M54.50 Low back pain, unspecified (principal)
CPT/HCPCS: 99283-25

== ENCOUNTER 2021-05-25 18:18 | Emergency (ER) | payer OTHER ==
[2021-05-25 18:45] VITALS: BP 116/76; PULSE 82; TEMP 97.7; BMI 30.1
[2021-05-25] MEDS ORDERED: KETOROLAC TROMETHAMINE 30 MG/1 ML VIAL IM ONE (20:36)
== END 2021-05-25 20:37 | disposition left against medical advice (07) ==
LOC: JER 18:18
PROC: 3E0233Z Introduction of Anti-inflammatory into Muscle, Percutaneous Approach (ICD-10-PCS; principal; 2021-05-25)
DX: M54.50 Low back pain, unspecified (principal)
CPT/HCPCS: 96372; 99284-25

== ENCOUNTER 2021-05-27 20:29 | Emergency (ER) | payer OTHER ==
[2021-05-27 20:55] VITALS: BP 160/80; PULSE 88; TEMP 98.1; BMI 44.3
== END 2021-05-28 06:50 | disposition home or self-care (01) ==
LOC: JER 20:29
DX: M54.50 Low back pain, unspecified (principal); F10.10 Alcohol abuse, uncomplicated
CPT/HCPCS: 99283-25

== ENCOUNTER 2021-05-28 22:21 | Emergency (ER) | payer OTHER ==
[2021-05-28 22:44] VITALS: BP 130/79; PULSE 90; TEMP 98.9; BMI 37.2
== END 2021-05-29 06:52 | disposition home or self-care (01) ==
LOC: JER 22:21
DX: R68.89 Other general symptoms and signs (principal); Z59.00 Homelessness unspecified
CPT/HCPCS: 99283-25

== ENCOUNTER 2021-05-30 20:30 | Emergency (ER) | payer OTHER ==
[2021-05-30 22:12] VITALS: BP 146/73; PULSE 89; TEMP 97.1; BMI 37.2
== END 2021-05-31 06:11 | disposition home or self-care (01) ==
LOC: JER 20:30
DX: F10.920 Alcohol use, unspecified with intoxication, uncomplicated (principal); C45.9 Mesothelioma, unspecified; J42 Unspecified chronic bronchitis
CPT/HCPCS: 99281-25

== ENCOUNTER 2021-06-01 22:11 | Emergency (ER) | payer OTHER ==
[2021-06-01 22:19] VITALS: BP 114/62; PULSE 88; TEMP 97.8; BMI 31.5
[2021-06-01] MEDS ORDERED: LIDOCAINE 5% TOPICAL PATCH TP ONE (23:52)
[2021-06-02] MEDS ORDERED: ACETAMINOPHEN 325 MG TABLET (FP) PO ONE (07:34)
[2021-06-02] MEDS ORDERED: ACETAMINOPHEN 325 MG TABLET (FP) ONE (09:06)
[2021-06-02] MEDS ORDERED: LIDOCAINE PATCH REMOVAL MC ONE (12:00)
== END 2021-06-02 09:12 | disposition home or self-care (01) ==
LOC: JER 22:11
DX: S62.651A Nondisplaced fracture of middle phalanx of left index finger, initial encounter for closed fracture (principal); F10.929 Alcohol use, unspecified with intoxication, unspecified; Y99.9 Unspecified external cause status
CPT/HCPCS: 73130-TC-LT-FY; 99283-25

== ENCOUNTER 2021-06-03 18:03 | Emergency (ER) | payer OTHER ==
[2021-06-03 18:23] VITALS: BP 139/83; PULSE 95; TEMP 98.9; BMI 35.9
== END 2021-06-03 23:22 | disposition left against medical advice (07) ==
LOC: JER 18:03
DX: M54.6 Pain in thoracic spine (principal)
CPT/HCPCS: 99283-25

== ENCOUNTER → 2021-06-04 | Emergency (ER) | payer OTHER ==
[~2021-06-04] MED LIST changes: +ACETAMINOPHEN 325 MG TABLET (FP) PO ONE; +LIDOCAINE 5% TOPICAL PATCH TP ONE; +METHOCARBAMOL 500 MG TABLET PO ONE
[2021-06-04 15:06] VITALS: BP 148/90; PULSE 88; TEMP 98.2; BMI 38.9
== END | disposition left against medical advice (07) ==
LOC: JER 14:35
DX: M54.50 Low back pain, unspecified (principal)
CPT/HCPCS: 99283-25

== ENCOUNTER 2021-06-05 15:28 | Emergency (ER) | payer OTHER ==
[2021-06-05 15:53] VITALS: BP 136/77; PULSE 86; BMI 44.2
[2021-06-05] MEDS ORDERED: LIDOCAINE 5% TOPICAL PATCH TP ONE (17:11)
[2021-06-05] MEDS ORDERED: METHOCARBAMOL 500 MG TABLET PO ONE (17:11)
[2021-06-05] MEDS ORDERED: LIDOCAINE 5% TOPICAL PATCH ONE (20:21)
[2021-06-05] MEDS ORDERED: LIDOCAINE PATCH REMOVAL MC SCH (22:00)
== END 2021-06-05 22:36 | disposition home or self-care (01) ==
LOC: JER 15:28
DX: M54.9 Dorsalgia, unspecified (principal)
CPT/HCPCS: 99283-25

== ENCOUNTER 2021-06-09 22:24 | Emergency (ER) | payer OTHER ==
[2021-06-09 22:51] VITALS: BMI 44.2
[2021-06-09] MEDS ORDERED: METHOCARBAMOL 500 MG TABLET PO ONE (23:32)
[2021-06-10 04:35] VITALS: BP 125/71; PULSE 86; TEMP 97.9
== END 2021-06-10 06:20 | disposition home or self-care (01) ==
LOC: JER 22:24
DX: M54.50 Low back pain, unspecified (principal)
CPT/HCPCS: 99283-25

== ENCOUNTER 2021-06-10 16:36 | Emergency (ER) | payer OTHER ==
[2021-06-10 16:48] VITALS: BP 137/84; PULSE 97; TEMP 98; BMI 33.0
[2021-06-10] MEDS ORDERED: METHOCARBAMOL 750 MG TABLET PO ONE (20:21)
== END 2021-06-11 06:16 | disposition home or self-care (01) ==
LOC: JER 16:36
DX: M54.50 Low back pain, unspecified (principal)
CPT/HCPCS: 99283-25

== ENCOUNTER 2021-06-11 17:58 | Emergency (ER) | payer OTHER ==
[2021-06-11 18:03] VITALS: BP 124/78; PULSE 88; TEMP 97.5; BMI 34.9
[2021-06-11] MEDS ORDERED: ACETAMINOPHEN 325 MG TABLET (FP) PO ONE (19:53)
[2021-06-11] MEDS ORDERED: ACETAMINOPHEN 325 MG TABLET (FP) ONE (20:34)
== END 2021-06-11 22:25 | disposition home or self-care (01) ==
LOC: JER 17:58
DX: M54.50 Low back pain, unspecified (principal)
CPT/HCPCS: 99283-25

== ENCOUNTER 2021-06-17 01:20 | Emergency (ER) | payer OTHER ==
[2021-06-17 01:47] VITALS: TEMP 97.9; BMI 38.0
[2021-06-17 06:35] VITALS: BP 139/76; PULSE 86
== END 2021-06-17 06:58 | disposition home or self-care (01) ==
LOC: JER 01:20
DX: M54.50 Low back pain, unspecified (principal)
CPT/HCPCS: 99281-25

== ENCOUNTER 2021-06-17 15:04 | Emergency (ER) | payer OTHER ==
[2021-06-17 15:49] VITALS: BP 0/0; TEMP 0; BMI 33.4
== END 2021-06-17 16:00 | disposition left against medical advice (07) ==
LOC: JER 15:04
DX: M54.50 Low back pain, unspecified (principal)
CPT/HCPCS: 99281-25

== ENCOUNTER 2021-06-19 23:08 | Emergency (ER) | payer OTHER ==
[2021-06-19 23:18] VITALS: BP 113/67; PULSE 98; TEMP 98.7; BMI 33.4
== END 2021-06-19 23:57 | disposition home or self-care (01) ==
LOC: JER 23:08
DX: Z59.1 Inadequate housing (principal)
CPT/HCPCS: 99281-25

== ENCOUNTER 2021-06-20 18:45 | Emergency (ER) | payer OTHER ==
[2021-06-20 19:03] VITALS: TEMP 98.2; BMI 38.0
[2021-06-20] MEDS ORDERED: LIDOCAINE PATCH REMOVAL MC SCH (22:00)
[2021-06-20] MEDS ORDERED: LIDOCAINE 5% TOPICAL PATCH TP ONE (23:30)
[2021-06-20] MEDS ORDERED: ACETAMINOPHEN 325 MG TABLET (FP) PO ONE (23:31)
[2021-06-21] MEDS ORDERED: SODIUM CHLORIDE 0.9% 500 ML INFUS.BAG IV ONE (01:59)
[2021-06-21] MEDS ORDERED: chlordiazePOXIDE HCL 25 MG CAPSULE PO ONE ×2 (01:59→15:41)
[2021-06-21] MEDS ORDERED: ACETAMINOPHEN 325 MG TABLET (FP) ONE (03:13)
[2021-06-21] MEDS ORDERED: chlordiazePOXIDE HCL 25 MG CAPSULE ONE (03:13)
[2021-06-21] MEDS ORDERED: LIDOCAINE 5% TOPICAL PATCH ONE (03:14)
[2021-06-21 03:43] VITALS: BP 126/73; PULSE 95
[2021-06-21] MEDS ORDERED: METHOCARBAMOL 500 MG TABLET PO ONE (05:11)
[2021-06-21] MEDS ORDERED: METHOCARBAMOL 500 MG TABLET ONE (05:14)
[2021-06-21 06:02] LABS: BASO % 0.4 % (0-2.0); EOS % 0.9 % (0-4.5); HEMATOCRIT 29.3 % (35.4-49); HEMOGLOBIN 9.3 GM/dL (11.7-16.9); LYMPH % 14.4 % (8-40); MCH 24.6 pg (25.7-33.7); MCHC 31.8 g/dl (32.0-35.9); MEAN CELL VOLUME 77.3 fl (80-96); MEAN PLT VOLUME 7.7 fl (7.5-11.1); MONO % 6.2 % (3.8-10.2); NEUT % 78.1 % (42.8-82.8); PLATELET COUNT 254 10^3/uL (134-434); RBC 3.79 M/mm3 (4.00-5.60); RDW 22.2 % (11.9-15.9); WHITE BLOOD COUNT 9.2 K/mm3 (4.0-10.0)
[2021-06-21 06:05] LABS: CHLORIDE 102 mmol/L (98-107); SODIUM 139 mmol/L (136-145)
[2021-06-21 06:08] LABS: ALBUMIN 3.1 g/dl (3.4-5.0); ANION GAP 13 MMOL/L (8-16); BLOOD UREA NITROGEN 16.1 mg/dL (7-18); CO2 24 mmol/L (21-32); GLUCOSE,RANDOM 75 mg/dL (74-106)
[2021-06-21 06:11] LABS: CREATININE 0.8 mg/dL (0.55-1.3); SGOT/AST 52 U/L (15-37); SGPT/ALT 28 U/L (13-61)
[2021-06-21 06:13] LABS: BILIRUBIN,TOTAL 1.3 mg/dL (0.2-1); TOT PROT 6.2 g/dl (6.4-8.2)
[2021-06-21] MEDS ORDERED: POTASSIUM CHLORIDE ORAL LIQUID 20 MEQ/15 ML PO ONE (06:13)
[2021-06-21 06:14] LABS: ALK PHOS 90 U/L (45-117)
[2021-06-21] MEDS ORDERED: POTASSIUM CHLORIDE ORAL LIQUID 20 MEQ/15 ML ONE (06:17)
[2021-06-21 08:58] LABS: ANISOCYTOSIS 3+; MACROCYTOSIS 0; PLATELET ESTIMATE NORMAL
== END 2021-06-21 07:14 | disposition home or self-care (01) ==
LOC: JER 18:45
DX: S62.660A Nondisplaced fracture of distal phalanx of right index finger, initial encounter for closed fracture (principal); R07.9 Chest pain, unspecified; W19.XXXA Unspecified fall, initial encounter
CPT/HCPCS: 36415; 70450-TC; 71045-TC-FY; 71111-TC-FY; 72125-TC; 73110-TC-LT-FY; 73110-TC-RT-FY; 73130-TC-LT-FY; 73130-TC-RT-FY; 73523-TC-FY; 73610-TC-RT-FY; 73630-TC-RT-FY; 80053; 84484; 85025; 93005; 93010; 99285-25

== ENCOUNTER 2021-06-22 09:39 | Inpatient (IN) | payer OTHER ==
[2021-06-22 12:31] VITALS: BMI 33.7
[2021-06-22] MEDS ORDERED: BISMUTH SUBSALICYLATE 524 MG/30 ML PO PRN (14:12)
[2021-06-22] MEDS ORDERED: MAGNESIUM CITRATE 300 ML BOTTLE PO PRN (14:12)
[2021-06-22] MEDS ORDERED: MAG HYDROX/AL HYDROX/SIMETH 30 ML UNIT-DOSE CUP PO PRN (14:12)
[2021-06-22] MEDS ORDERED: MENTHOL/PHENOL 1 EACH UD MM PRN (14:12)
[2021-06-22] MEDS ORDERED: LORazepam 1 MG TABLET PO PRN (14:12)
[2021-06-22] MEDS ORDERED: NICOTINE 10 MG CARTRIDGE (INHALER) IH PRN (14:12)
[2021-06-22] MEDS ORDERED: ACETAMINOPHEN 325 MG TABLET (FP) PO PRN ×2 (14:12)
[2021-06-22] MEDS ORDERED: QUEtiapine FUMARATE 25 MG TABLET PO PRN (14:12)
[2021-06-22] MEDS ORDERED: MAGNESIUM HYDROX 2400MG/30ML ORAL SUSPENSION 30 ML CUP PO PRN (14:12)
[2021-06-22] MEDS ORDERED: ONDANSETRON *ODT* 4 MG TABLET SL PRN (14:12)
[2021-06-22] MEDS ORDERED: ALBUTEROL SO4 HFA INHALER IH PRN (14:15)
[2021-06-22] MEDS: LORazepam 2 MG TABLET PO SCH ×3 (17:51→23:07)
[2021-06-22] MEDS: amLODIPine BESYLATE 5 MG TABLET (FP) PO SCH (17:53)
[2021-06-22] MEDS: PANTOPRAZOLE 40 MG TABLET PO SCH (17:53)
[2021-06-22] MEDS: POTASSIUM CHLORIDE TABS 20 MEQ TABLET.ER (FP) PO SCH (18:01)
[2021-06-22] MEDS: hydrOXYzine PAMOATE 25 MG CAPSULE (FP) PO SCH ×3 (18:26→23:08)
[2021-06-22] MEDS: MELATONIN 5 MG TABLETS PO SCH ×2 (22:41→23:08)
[2021-06-22] MEDS: THIAMINE HCL 100 MG TABLET (FP) PO SCH ×2 (22:42→23:09)
[2021-06-22] MEDS: BUDESONIDE/FORMETEROL FUMARATE 80/4.5 mcg INHALER IH SCH (22:42)
[2021-06-23] MEDS: LORazepam 2 MG TABLET PO SCH ×4 (06:32→22:47)
[2021-06-23] MEDS: hydrOXYzine PAMOATE 25 MG CAPSULE (FP) PO SCH ×5 (06:32→22:48)
[2021-06-23] MEDS: IBUPROFEN 400 MG TABLET (FP) PO PRN (06:37)
[2021-06-23 10:00] LABS: BLOOD UREA NITROGEN 5.6 mg/dL (7-18); CREATININE 0.6 mg/dL (0.55-1.3); GLUCOSE,RANDOM 95 mg/dL (74-106); SGOT/AST 58 U/L (15-37)
[2021-06-23 10:01] LABS: ALBUMIN 2.6 g/dl (3.4-5.0); CALCIUM 7.6 mg/dL (8.5-10.1)
[2021-06-23 10:02] LABS: BILIRUBIN,TOTAL 1.2 mg/dL (0.2-1); TOT PROT 5.4 g/dl (6.4-8.2)
[2021-06-23 10:03] LABS: ALK PHOS 77 U/L (45-117)
[2021-06-23 10:08] LABS: ANION GAP 9 MMOL/L (8-16); CHLORIDE 106 mmol/L (98-107); CO2 27 mmol/L (21-32); SGPT/ALT 33 U/L (13-61); SODIUM 141 mmol/L (136-145)
[2021-06-23 10:19] LABS: HEMOGLOBIN 8.8 GM/dL (11.7-16.9); MCH 24.8 pg (25.7-33.7); MCHC 31.4 g/dl (32.0-35.9); MEAN PLT VOLUME 7.9 fl (7.5-11.1); PLATELET COUNT 196 10^3/uL (134-434); RBC 3.55 M/mm3 (4.00-5.60); RDW 22.7 % (11.9-15.9); WHITE BLOOD COUNT 6.2 K/mm3 (4.0-10.0)
[2021-06-23] MEDS: BUDESONIDE/FORMETEROL FUMARATE 80/4.5 mcg INHALER IH SCH ×3 (10:48→22:52)
[2021-06-23] MEDS: PRENATAL VITAMINS W/ FOLIC ACID TABLET (FP) PO SCH (11:19)
[2021-06-23] MEDS: amLODIPine BESYLATE 5 MG TABLET (FP) PO SCH (11:20)
[2021-06-23] MEDS: POTASSIUM CHLORIDE TABS 20 MEQ TABLET.ER (FP) PO SCH (11:20)
[2021-06-23] MEDS: PANTOPRAZOLE 40 MG TABLET PO SCH (11:20)
[2021-06-23] MEDS ORDERED: POTASSIUM CHLORIDE ORAL LIQUID 20 MEQ/15 ML PO ONE (11:30)
[2021-06-23] MEDS: FERROUS SO4 325 MG TABLET (FP) PO SCH ×2 (15:26→17:36)
[2021-06-23] MEDS: MELATONIN 5 MG TABLETS PO SCH (22:48)
[2021-06-23] MEDS: THIAMINE HCL 100 MG TABLET (FP) PO SCH (22:48)
[2021-06-24] MEDS: hydrOXYzine PAMOATE 25 MG CAPSULE (FP) PO SCH ×5 (06:14→23:00)
[2021-06-24] MEDS: LORazepam 1 MG TABLET PO SCH ×4 (06:15→23:00)
[2021-06-24] MEDS: FERROUS SO4 325 MG TABLET (FP) PO SCH ×3 (07:59→17:54)
[2021-06-24] MEDS ORDERED: MASKS NR ONE (08:25)
[2021-06-24] MEDS: amLODIPine BESYLATE 5 MG TABLET (FP) PO SCH (10:38)
[2021-06-24] MEDS: PRENATAL VITAMINS W/ FOLIC ACID TABLET (FP) PO SCH (10:38)
[2021-06-24] MEDS: PANTOPRAZOLE 40 MG TABLET PO SCH (10:38)
[2021-06-24] MEDS: BUDESONIDE/FORMETEROL FUMARATE 80/4.5 mcg INHALER IH SCH ×2 (10:38→23:14)
[2021-06-24] MEDS: IBUPROFEN 400 MG TABLET (FP) PO PRN (17:56)
[2021-06-24] MEDS: MELATONIN 5 MG TABLETS PO SCH (23:00)
[2021-06-24] MEDS: THIAMINE HCL 100 MG TABLET (FP) PO SCH (23:00)
[2021-06-25] MEDS ORDERED: LORazepam 0.5 MG TABLET PO PRN
[2021-06-25] MEDS: METHOCARBAMOL 500 MG TABLET PO PRN ×2 (04:02→10:47)
[2021-06-25] MEDS: LORazepam 0.5 MG TABLET PO SCH ×4 (05:26→22:48)
[2021-06-25] MEDS: hydrOXYzine PAMOATE 25 MG CAPSULE (FP) PO SCH ×5 (05:27→22:48)
[2021-06-25] MEDS: FERROUS SO4 325 MG TABLET (FP) PO SCH ×3 (07:56→19:00)
[2021-06-25] MEDS: PRENATAL VITAMINS W/ FOLIC ACID TABLET (FP) PO SCH (10:46)
[2021-06-25] MEDS: amLODIPine BESYLATE 5 MG TABLET (FP) PO SCH (10:46)
[2021-06-25] MEDS: PANTOPRAZOLE 40 MG TABLET PO SCH (10:47)
[2021-06-25] MEDS: BUDESONIDE/FORMETEROL FUMARATE 80/4.5 mcg INHALER IH SCH ×2 (10:47→22:48)
[2021-06-25] MEDS: THIAMINE HCL 100 MG TABLET (FP) PO SCH ×2 (22:48→22:52)
[2021-06-25] MEDS: MELATONIN 5 MG TABLETS PO SCH ×2 (22:48→22:52)
[2021-06-26] MEDS ORDERED: LORazepam 0.5 MG TABLET PO ONE (05:00)
[2021-06-26] MEDS: METHOCARBAMOL 500 MG TABLET PO PRN ×2 (05:10→10:39)
[2021-06-26] MEDS: hydrOXYzine PAMOATE 25 MG CAPSULE (FP) PO SCH ×5 (05:11→22:37)
[2021-06-26] MEDS: FERROUS SO4 325 MG TABLET (FP) PO SCH ×3 (09:36→18:27)
[2021-06-26] MEDS: PRENATAL VITAMINS W/ FOLIC ACID TABLET (FP) PO SCH (10:39)
[2021-06-26] MEDS: BUDESONIDE/FORMETEROL FUMARATE 80/4.5 mcg INHALER IH SCH ×2 (10:39→22:37)
[2021-06-26] MEDS: amLODIPine BESYLATE 10 MG TABLET (FP) PO SCH (10:39)
[2021-06-26] MEDS: PANTOPRAZOLE 40 MG TABLET PO SCH (10:39)
[2021-06-26] MEDS ORDERED: DIPHENOXYLATE 2.5/ATROPINE.025 1 COMBO TABLET PO ONE (14:00)
[2021-06-26] MEDS: MELATONIN 5 MG TABLETS PO SCH (22:36)
[2021-06-26] MEDS: THIAMINE HCL 100 MG TABLET (FP) PO SCH (22:37)
[2021-06-27] MEDS: hydrOXYzine PAMOATE 25 MG CAPSULE (FP) PO SCH ×2 (06:16→11:02)
[2021-06-27] MEDS: FERROUS SO4 325 MG TABLET (FP) PO SCH ×2 (09:26→11:03)
[2021-06-27] MEDS: PRENATAL VITAMINS W/ FOLIC ACID TABLET (FP) PO SCH (11:01)
[2021-06-27] MEDS: PANTOPRAZOLE 40 MG TABLET PO SCH (11:02)
[2021-06-27] MEDS: METHOCARBAMOL 500 MG TABLET PO PRN (11:02)
[2021-06-27] MEDS: amLODIPine BESYLATE 10 MG TABLET (FP) PO SCH (11:02)
[2021-06-27] MEDS: BUDESONIDE/FORMETEROL FUMARATE 80/4.5 mcg INHALER IH SCH (11:02)
[2021-06-27 13:33] VITALS: BP 142/82; PULSE 80; TEMP 98.2
== END 2021-06-27 13:30 | disposition home or self-care (01) | DRG 775 ==
LOC: YASAS 09:39 → Y6N 14:09
PROVIDERS: ADMIT Allergy & Immunology; ATTEND Allergy & Immunology
PROC: HZ2ZZZZ Detoxification Services for Substance Abuse Treatment (ICD-10-PCS; principal; 2021-06-22)
DX: F10.230 Alcohol dependence with withdrawal, uncomplicated (principal); D50.9 Iron deficiency anemia, unspecified; E87.6 Hypokalemia; I10 Essential (primary) hypertension; I48.0 Paroxysmal atrial fibrillation; J42 Unspecified chronic bronchitis; K21.9 Gastro-esophageal reflux disease without esophagitis; M54.50 Low back pain, unspecified; G89.29 Other chronic pain; Z20.822 Contact with and (suspected) exposure to COVID-19; Z86.16 Personal history of COVID-19; Z99.89 Dependence on other enabling machines and devices; Z86.79 Personal history of other diseases of the circulatory system; Z91.013 Allergy to seafood; Z56.0 Unemployment, unspecified; Z59.02 Unsheltered homelessness
CPT/HCPCS: 36415; 70450-TC; 71045-TC-FY; 71111-TC-FY; 72125-TC; 73110-TC-LT-FY; 73110-TC-RT-FY; 73130-TC-LT-FY; 73130-TC-RT-FY; 73523-TC-FY; 73610-TC-RT-FY; 73630-TC-RT-FY; 80048; 80053; 82550; 83690; 83735; 84132; 84484; 85025; 85027; 86780; 93005; 93010; 99281-25; 99284-25; 99285-25; C9803-CS; Q0162; U0003; U0005

== ENCOUNTER 2021-06-26 14:13 | Emergency (ER) | payer OTHER ==
[2021-06-26 14:39] VITALS: BP 116/78; PULSE 82; TEMP 98.5; BMI 33.7
[2021-06-26] MEDS ORDERED: ACETAMINOPHEN 1000 MG/100 ML BAG IVPB ONE (15:02)
[2021-06-26] MEDS ORDERED: LACTATED RINGERS SOLUTION 1000 ML INFUS.BAG IV ONE (15:02)
[2021-06-26 16:41] LABS: BASO % 0.2 % (0-2.0); EOS % 0.9 % (0-4.5); HEMATOCRIT 32.3 % (35.4-49); HEMOGLOBIN 10.2 GM/dL (11.7-16.9); LYMPH % 12.7 % (8-40); MCH 25.1 pg (25.7-33.7); MCHC 31.7 g/dl (32.0-35.9); MEAN CELL VOLUME 79.3 fl (80-96); MEAN PLT VOLUME 7.5 fl (7.5-11.1); MONO % 9.1 % (3.8-10.2); NEUT % 77.1 % (42.8-82.8); PLATELET COUNT 273 10^3/uL (134-434); RBC 4.07 M/mm3 (4.00-5.60); RDW 24.7 % (11.9-15.9); WHITE BLOOD COUNT 7.3 K/mm3 (4.0-10.0)
[2021-06-26] MEDS: KCL 10 MEQ IVPB 10 MEQ/100 ML INFUS.BAG IVPB SCH ×2 (16:56→17:44)
[2021-06-26 17:04] LABS: CHLORIDE 106 mmol/L (98-107); SODIUM 140 mmol/L (136-145)
[2021-06-26 17:06] LABS: ANION GAP 9 MMOL/L (8-16); BLOOD UREA NITROGEN 6.1 mg/dL (7-18); CALCIUM 8.3 mg/dL (8.5-10.1); CO2 25 mmol/L (21-32); GLUCOSE,RANDOM 82 mg/dL (74-106); LIPASE 86 U/L (73-393); MAGNESIUM 1.4 mg/dL (1.8-2.4)
[2021-06-26 17:09] LABS: CREATININE 0.5 mg/dL (0.55-1.3); SGOT/AST 41 U/L (15-37); SGPT/ALT 41 U/L (13-61)
[2021-06-26 17:10] LABS: BILIRUBIN,TOTAL 0.5 mg/dL (0.2-1)
[2021-06-26 17:11] LABS: TOT PROT 6.4 g/dl (6.4-8.2)
[2021-06-26 17:12] LABS: ALK PHOS 89 U/L (45-117)
[2021-06-26 17:22] LABS: ANISOCYTOSIS 3+; MACROCYTOSIS 0; OVALOCYTE 1+; PLATELET ESTIMATE NORMAL
[2021-06-26 20:34] LABS: BLOOD UREA NITROGEN 5.4 mg/dL (7-18); CALCIUM 8.5 mg/dL (8.5-10.1)
[2021-06-26 20:37] LABS: CREATININE 0.5 mg/dL (0.55-1.3)
[2021-06-26] MEDS ORDERED: MAGNESIUM SULF 50% (8.12 MEQ/2 ML-1 GM VIAL) IVPB ONE (21:33)
== END 2021-06-26 22:36 | disposition home or self-care (01) ==
LOC: JER 14:13
PROC: 3E0333Z Introduction of Anti-inflammatory into Peripheral Vein, Percutaneous Approach (ICD-10-PCS; principal; 2021-06-26)
PROC: 3E033GC Introduction of Other Therapeutic Substance into Peripheral Vein, Percutaneous Approach (ICD-10-PCS; 2021-06-26)
PROC: 3E033GC Introduction of Other Therapeutic Substance into Peripheral Vein, Percutaneous Approach (ICD-10-PCS; 2021-06-26)
DX: E87.6 Hypokalemia (principal)
CPT/HCPCS: 36415; 80048; 80053; 82550; 83690; 83735; 84484; 85025; 93005; 93010; 99284-25; J0131

== ENCOUNTER 2021-06-28 00:08 | Observation (INO) | payer OTHER ==
[2021-06-28] MEDS ORDERED: METHOCARBAMOL 500 MG TABLET PO ONE (05:19)
[2021-06-28] MEDS ORDERED: LIDOCAINE 5% TOPICAL PATCH TP ONE (05:20)
[2021-06-28] MEDS ORDERED: METHOCARBAMOL 750 MG TAB PO ONE (05:21)
[2021-06-28] MEDS ORDERED: ONDANSETRON *ODT* 4 MG TABLET SL ONE (08:50)
[2021-06-28] MEDS ORDERED: LIDOCAINE PATCH REMOVAL MC ONE (17:00)
[2021-06-28 19:12] LABS: BASO % 0.2 % (0-2.0); EOS % 1.1 % (0-4.5); HEMOGLOBIN 10.2 GM/dL (11.7-16.9); LYMPH % 16.4 % (8-40); MCH 24.9 pg (25.7-33.7); MCHC 31.7 g/dl (32.0-35.9); MEAN CELL VOLUME 78.5 fl (80-96); MEAN PLT VOLUME 7.5 fl (7.5-11.1); NEUT % 70.3 % (42.8-82.8); PLATELET COUNT 350 10^3/uL (134-434); RBC 4.08 M/mm3 (4.00-5.60); RDW 23.9 % (11.9-15.9); WHITE BLOOD COUNT 8.1 K/mm3 (4.0-10.0)
[2021-06-28 19:36] LABS: CALCIUM 8.7 mg/dL (8.5-10.1)
[2021-06-28 19:37] LABS: ALBUMIN 3.3 g/dl (3.4-5.0); BLOOD UREA NITROGEN 12.6 mg/dL (7-18)
[2021-06-28 19:40] LABS: CREATININE 0.7 mg/dL (0.55-1.3)
[2021-06-28 19:41] LABS: BILIRUBIN,TOTAL 0.6 mg/dL (0.2-1); TOT PROT 6.6 g/dl (6.4-8.2)
[2021-06-28] MEDS ORDERED: LIDOCAINE PATCH REMOVAL MC SCH (22:00)
[2021-06-29 02:07] VITALS: BMI 32.9
[2021-06-29] MEDS ORDERED: ALBUTEROL SO4 HFA INHALER IH PRN (03:40)
[2021-06-29] MEDS: FERROUS SO4 325 MG TABLET (FP) PO SCH (10:10)
[2021-06-29] MEDS: BUDESONIDE/FORMETEROL FUMARATE 160/4.5 mcg INHALER IH SCH ×2 (10:10→22:25)
[2021-06-29] MEDS: PANTOPRAZOLE 40 MG TABLET PO SCH (10:10)
[2021-06-29] MEDS: THIAMINE HCL 100 MG TABLET (FP) PO SCH (10:11)
[2021-06-29 10:22] LABS: BASO % 0.6 % (0-2.0); EOS % 1.5 % (0-4.5); HEMATOCRIT 29.8 % (35.4-49); HEMOGLOBIN 9.4 GM/dL (11.7-16.9); LYMPH % 18.9 % (8-40); MCH 24.8 pg (25.7-33.7); MCHC 31.4 g/dl (32.0-35.9); MEAN PLT VOLUME 7.7 fl (7.5-11.1); MONO % 12.1 % (3.8-10.2); NEUT % 66.9 % (42.8-82.8); PLATELET COUNT 344 10^3/uL (134-434); RBC 3.78 M/mm3 (4.00-5.60); RDW 23.1 % (11.9-15.9); WHITE BLOOD COUNT 6.7 K/mm3 (4.0-10.0)
[2021-06-29 10:41] LABS: BLOOD UREA NITROGEN 10.3 mg/dL (7-18)
[2021-06-29 10:43] LABS: CALCIUM 8.3 mg/dL (8.5-10.1)
[2021-06-29 10:46] LABS: CREATININE 0.6 mg/dL (0.55-1.3)
[2021-06-29] MEDS ORDERED: SIMETHICONE 80 MG TAB.CHEW (FP) PO PRN (12:54)
[2021-06-29] MEDS: METHOCARBAMOL 500 MG TABLET PO SCH ×2 (13:51→22:25)
[2021-06-30] MEDS: METHOCARBAMOL 500 MG TABLET PO SCH ×3 (06:39→21:00)
[2021-06-30] MEDS: amLODIPine BESYLATE 10 MG TABLET (FP) PO SCH (09:19)
[2021-06-30] MEDS: THIAMINE HCL 100 MG TABLET (FP) PO SCH (09:22)
[2021-06-30] MEDS: FERROUS SO4 325 MG TABLET (FP) PO SCH (09:22)
[2021-06-30] MEDS: PANTOPRAZOLE 40 MG TABLET PO SCH (09:22)
[2021-06-30] MEDS: BUDESONIDE/FORMETEROL FUMARATE 160/4.5 mcg INHALER IH SCH ×2 (09:22→21:03)
[2021-06-30] MEDS: GABAPENTIN 100 MG CAPSULE PO SCH ×2 (14:47→21:03)
[2021-07-01] MEDS: GABAPENTIN 100 MG CAPSULE PO SCH ×3 (05:43→21:47)
[2021-07-01] MEDS: METHOCARBAMOL 500 MG TABLET PO SCH ×3 (05:43→21:47)
[2021-07-01] MEDS: PANTOPRAZOLE 40 MG TABLET PO SCH (10:02)
[2021-07-01] MEDS: THIAMINE HCL 100 MG TABLET (FP) PO SCH (10:02)
[2021-07-01] MEDS: FERROUS SO4 325 MG TABLET (FP) PO SCH (10:02)
[2021-07-01] MEDS: BUDESONIDE/FORMETEROL FUMARATE 160/4.5 mcg INHALER IH SCH ×2 (10:02→21:47)
[2021-07-01] MEDS: amLODIPine BESYLATE 10 MG TABLET (FP) PO SCH (10:18)
[2021-07-01 13:07] LABS: CALCIUM 9.1 mg/dL (8.5-10.1)
[2021-07-01 13:08] LABS: BLOOD UREA NITROGEN 6.7 mg/dL (7-18)
[2021-07-01 13:11] LABS: CREATININE 0.6 mg/dL (0.55-1.3)
[2021-07-01 13:13] LABS: BILIRUBIN,TOTAL 0.4 mg/dL (0.2-1); TOT PROT 6.2 g/dl (6.4-8.2)
[2021-07-01 21:44] VITALS: TEMP 97.9
[2021-07-02 05:46] VITALS: BP 143/78; PULSE 72
[2021-07-02] MEDS: METHOCARBAMOL 500 MG TABLET PO SCH ×3 (06:13→13:36)
[2021-07-02] MEDS: GABAPENTIN 100 MG CAPSULE PO SCH ×3 (06:13→13:36)
[2021-07-02] MEDS: BUDESONIDE/FORMETEROL FUMARATE 160/4.5 mcg INHALER IH SCH (09:43)
[2021-07-02] MEDS: FERROUS SO4 325 MG TABLET (FP) PO SCH (09:43)
[2021-07-02] MEDS: amLODIPine BESYLATE 10 MG TABLET (FP) PO SCH (09:43)
[2021-07-02] MEDS: PANTOPRAZOLE 40 MG TABLET PO SCH (09:43)
[2021-07-02] MEDS: THIAMINE HCL 100 MG TABLET (FP) PO SCH (09:44)
== END 2021-07-02 15:47 | disposition home or self-care (01) ==
LOC: JER 00:08 → JERBED 22:11 → J6S 06-29 01:51
PROVIDERS: ADMIT Internal Medicine; ATTEND Family Medicine
DX: W00.0XXA Fall on same level due to ice and snow, initial encounter (principal); Y93.89 Activity, other specified; Y92.410 Unspecified street and highway as the place of occurrence of the external cause; Z91.013 Allergy to seafood; F10.10 Alcohol abuse, uncomplicated; G89.29 Other chronic pain; J44.9 Chronic obstructive pulmonary disease, unspecified; F41.9 Anxiety disorder, unspecified; M54.59 Other low back pain; I10 Essential (primary) hypertension; E78.5 Hyperlipidemia, unspecified; K21.9 Gastro-esophageal reflux disease without esophagitis; C45.9 Mesothelioma, unspecified; Z86.16 Personal history of COVID-19; M19.90 Unspecified osteoarthritis, unspecified site; Z59.00 Homelessness unspecified; E66.9 Obesity, unspecified; Z68.32 Body mass index [BMI] 32.0-32.9, adult
CPT/HCPCS: 36415; 72128-TC; 72131-TC; 80048; 80053; 85025; 93005; 93010; 97116-GP; 99285-25; C9803-CS; G0378; U0003; U0005

== ENCOUNTER 2021-08-15 19:00 | Observation (INO) | payer OTHER ==
[2021-08-15 19:37] VITALS: TEMP 97.4; BMI 39.1
[2021-08-15 21:31] LABS: BASO % 1.8 % (0-2.0); EOS % 4.1 % (0-4.5); HEMOGLOBIN 10.7 GM/dL (11.7-16.9); LYMPH % 15.5 % (8-40); MCH 23.3 pg (25.7-33.7); MCHC 30.5 g/dl (32.0-35.9); MEAN CELL VOLUME 76.3 fl (80-96); MONO % 4.2 % (3.8-10.2); NEUT % 74.4 % (42.8-82.8); PLATELET COUNT 359 10^3/uL (134-434); RBC 4.59 M/mm3 (4.00-5.60); RDW 20.3 % (11.9-15.9); WHITE BLOOD COUNT 12.4 K/mm3 (4.0-10.0)
[2021-08-15 21:38] LABS: INR 1.21 (0.83-1.09)
[2021-08-15 21:41] LABS: ACTIVATED PTT 31.6 SECONDS (25.2-36.5)
[2021-08-15 21:47] LABS: CHLORIDE 110 mmol/L (98-107); SODIUM 139 mmol/L (136-145)
[2021-08-15 21:50] LABS: BLOOD UREA NITROGEN 7.6 mg/dL (7-18)
[2021-08-15 21:51] LABS: ALBUMIN 3.3 g/dl (3.4-5.0); CO2 24 mmol/L (21-32); GLUCOSE,RANDOM 88 mg/dL (74-106); MAGNESIUM 1.9 mg/dL (1.8-2.4)
[2021-08-15 21:54] LABS: CREATININE 0.7 mg/dL (0.55-1.3); PHOSPHOROUS 4.9 mg/dL (2.5-4.9); SGOT/AST 81 U/L (15-37); SGPT/ALT 27 U/L (13-61)
[2021-08-15 21:55] LABS: BILIRUBIN,TOTAL 0.3 mg/dL (0.2-1); TOT PROT 7.5 g/dl (6.4-8.2)
[2021-08-15 21:56] LABS: ALK PHOS 106 U/L (45-117)
[2021-08-15 22:43] LABS: ANION GAP 5 MMOL/L (8-16)
[2021-08-15] MEDS ORDERED: LACTULOSE 20 GM/30 ML UDC (FOR ORAL USE ONLY) PO ONE (22:58)
[2021-08-15] MEDS ORDERED: LACTULOSE 20 GM/30 ML UDC (FOR ORAL USE ONLY) ONE (23:20)
[2021-08-15 23:55] LABS: CALCIUM 8.6 mg/dL (8.5-10.1)
[2021-08-15 23:56] LABS: BLOOD UREA NITROGEN 8.2 mg/dL (7-18)
[2021-08-15 23:59] LABS: CREATININE 0.6 mg/dL (0.55-1.3)
[2021-08-16] MEDS ORDERED: FOLIC ACID INJECTION - 1 MG, THIAMINE HCL 100 MG, MULTIVIT INJECTION ADULT 10 ML in SOD... IVPB ONE (01:14)
[2021-08-16] MEDS ORDERED: LORazepam 1 MG TABLET PO PRN (01:14)
[2021-08-16 07:39] VITALS: BP 131/73; PULSE 78
[2021-08-16] MEDS ORDERED: ENOXAPARIN NA (PORCINE) 40 MG/0.4 ML DISP.SYRIN SQ SCH (10:00)
[2021-08-16 11:10] LABS: PH,URINE 5.5 (5.0-8.0); URINE APPEARANCE CLEAR; URINE BILIRUBIN NEGATIVE (NEGATIVE); URINE COLOR YELLOW; URINE GLUCOSE (UA) NEGATIVE (NEGATIVE); URINE KETONE NEGATIVE (NEGATIVE); URINE LEUK ESTERASE NEGATIVE (NEGATIVE); URINE NITRITE NEGATIVE (NEGATIVE); URINE PROTEIN NEGATIVE (NEGATIVE); URINE UROBILINOGEN 0.2 mg/dL (0.2-1.0)
[2021-08-16 11:31] LABS: PHENCYCLIDINE,URINE NEGATIVE (NEGATIVE); URINE BARBITURATES NEGATIVE (NEGATIVE); URINE BENZODIAZEPINES NEGATIVE (NEGATIVE)
[2021-08-16 11:35] LABS: COCAINE, UR NEGATIVE (NEGATIVE); METHADONE, UR NEGATIVE (NEGATIVE); OPIATES, URI NEGATIVE (NEGATIVE); URINE AMPHETAMINES NEGATIVE (NEGATIVE)
== END 2021-08-16 09:40 | disposition left against medical advice (07) ==
LOC: JER 19:00 → JERBED 23:00 → INTOOBSV 23:00 → UNDOADMOB 23:00 → JERBED 08-16 01:10
PROVIDERS: ADMIT Hospitalist; ATTEND Nurse Practitioner Family
DX: R41.82 Altered mental status, unspecified (principal); F10.99 Alcohol use, unspecified with unspecified alcohol-induced disorder; I10 Essential (primary) hypertension; E78.5 Hyperlipidemia, unspecified; J44.9 Chronic obstructive pulmonary disease, unspecified; K21.9 Gastro-esophageal reflux disease without esophagitis; G89.29 Other chronic pain; M54.59 Other low back pain; C45.7 Mesothelioma of other sites
CPT/HCPCS: 36415; 70450-TC; 71045-TC-FY; 80048; 80053; 80307; 81003; 82140; 82550; 82553; 83735; 84100; 84443; 84484; 85025; 85610; 85730; 87086; 93005; 93010; 99285-25; C9803-CS; G0378; U0003; U0005

== ENCOUNTER 2021-08-16 19:26 | Emergency (ER) | payer OTHER ==
[2021-08-16 20:28] VITALS: TEMP 98; BMI 34.9
[2021-08-16] MEDS ORDERED: FOLIC ACID INJECTION - 1 MG, THIAMINE HCL 100 MG, MULTIVIT INJECTION ADULT 10 ML in SOD... IVPB ONE (21:28)
[2021-08-17 07:56] VITALS: BP 125/72; PULSE 92
== END 2021-08-17 08:10 | disposition home or self-care (01) ==
LOC: JER 19:26
DX: F10.929 Alcohol use, unspecified with intoxication, unspecified (principal); M54.50 Low back pain, unspecified
CPT/HCPCS: 99283-25

== ENCOUNTER 2021-08-21 14:00 | Emergency (ER) | payer OTHER ==
[2021-08-21 14:58] VITALS: BP 128/70; PULSE 95; TEMP 98; BMI 41.8
[2021-08-21] MEDS ORDERED: IBUPROFEN 600 MG TABLET (FP) PO ONE (18:55)
== END 2021-08-21 21:13 | disposition left against medical advice (07) ==
LOC: JER 14:00 → JERFT 14:00
DX: M54.9 Dorsalgia, unspecified (principal)
CPT/HCPCS: 99282-25

== ENCOUNTER 2021-08-23 16:30 | Emergency (ER) | payer OTHER ==
[2021-08-23 16:37] VITALS: BP 140/86; PULSE 96; TEMP 97.4; BMI 34.9
== END 2021-08-23 23:33 | disposition home or self-care (01) ==
LOC: JER 16:30
DX: F10.10 Alcohol abuse, uncomplicated (principal); M54.50 Low back pain, unspecified
CPT/HCPCS: 99281-25

== ENCOUNTER 2021-08-24 09:17 | Inpatient (IN) | payer OTHER ==
[2021-08-24 10:26] VITALS: BMI 33.0
[2021-08-24] MEDS ORDERED: MENTHOL/PHENOL 1 EACH UD MM PRN (13:12)
[2021-08-24] MEDS ORDERED: MAGNESIUM CITRATE 300 ML BOTTLE PO PRN (13:12)
[2021-08-24] MEDS ORDERED: BISMUTH SUBSALICYLATE 524 MG/30 ML PO PRN (13:12)
[2021-08-24] MEDS ORDERED: METHOCARBAMOL 500 MG TABLET PO PRN (13:12)
[2021-08-24] MEDS ORDERED: LOPERAMIDE HCL 2 MG CAPSULE PO PRN (13:12)
[2021-08-24] MEDS ORDERED: LORazepam 1 MG TABLET PO PRN (13:12)
[2021-08-24] MEDS ORDERED: LORazepam 2 MG TABLET PO ONE (13:12)
[2021-08-24] MEDS ORDERED: MAGNESIUM HYDROX 2400MG/30ML ORAL SUSPENSION 30 ML CUP PO PRN (13:12)
[2021-08-24] MEDS ORDERED: MAG HYDROX/AL HYDROX/SIMETH 30 ML UNIT-DOSE CUP PO PRN (13:12)
[2021-08-24] MEDS ORDERED: IBUPROFEN 400 MG TABLET (FP) PO PRN (13:12)
[2021-08-24] MEDS ORDERED: ACETAMINOPHEN 325 MG TABLET (FP) PO PRN (13:12)
[2021-08-24] MEDS ORDERED: NICOTINE 10 MG CARTRIDGE (INHALER) IH PRN (13:12)
[2021-08-24] MEDS ORDERED: ONDANSETRON *ODT* 4 MG TABLET SL PRN (13:12)
[2021-08-24] MEDS ORDERED: ALBUTEROL SO4 HFA INHALER IH PRN (13:15)
[2021-08-24] MEDS ORDERED: LACTULOSE 20 GM/30 ML UDC (FOR ORAL USE ONLY) PO PRN (13:26)
[2021-08-24] MEDS ORDERED: LORazepam 2 MG TABLET ONE (18:08)
[2021-08-24] MEDS ORDERED: hydrOXYzine PAMOATE 25 MG CAPSULE (FP) PO ONE (18:08)
[2021-08-24] MEDS ORDERED: amLODIPine BESYLATE 5 MG TABLET (FP) ONE (18:08)
[2021-08-24] MEDS: hydrOXYzine PAMOATE 25 MG CAPSULE (FP) PO SCH ×3 (18:12→22:52)
[2021-08-24] MEDS: amLODIPine BESYLATE 10 MG TABLET (FP) PO SCH (18:12)
[2021-08-24] MEDS: LORazepam 2 MG TABLET PO SCH ×2 (18:12→22:48)
[2021-08-24] MEDS: MELATONIN 5 MG TABLETS PO SCH (22:49)
[2021-08-24] MEDS: LIDOCAINE PATCH REMOVAL MC SCH (22:49)
[2021-08-24] MEDS: THIAMINE HCL 100 MG TABLET (FP) PO SCH (22:49)
[2021-08-24] MEDS: BUDESONIDE/FORMETEROL FUMARATE 160/4.5 mcg INHALER IH SCH ×2 (22:52→22:55)
[2021-08-24] MEDS: LIDOCAINE 5% TOPICAL PATCH TP SCH (22:54)
[2021-08-24] MEDS: PANTOPRAZOLE 40 MG TABLET PO SCH (22:54)
[2021-08-25] MEDS: hydrOXYzine PAMOATE 25 MG CAPSULE (FP) PO SCH ×5 (05:30→23:29)
[2021-08-25] MEDS: LORazepam 2 MG TABLET PO SCH ×4 (05:30→23:29)
[2021-08-25] MEDS: PRENATAL VITAMINS W/ FOLIC ACID TABLET (FP) PO SCH (10:40)
[2021-08-25] MEDS: amLODIPine BESYLATE 10 MG TABLET (FP) PO SCH (10:40)
[2021-08-25] MEDS: BUDESONIDE/FORMETEROL FUMARATE 160/4.5 mcg INHALER IH SCH ×2 (10:40→22:52)
[2021-08-25] MEDS: PANTOPRAZOLE 40 MG TABLET PO SCH (10:40)
[2021-08-25] MEDS: LIDOCAINE 5% TOPICAL PATCH TP SCH (10:49)
[2021-08-25] MEDS: LIDOCAINE PATCH REMOVAL MC SCH (22:51)
[2021-08-25] MEDS: THIAMINE HCL 100 MG TABLET (FP) PO SCH (23:29)
[2021-08-25] MEDS: MELATONIN 5 MG TABLETS PO SCH (23:29)
[2021-08-26] MEDS: LORazepam 1 MG TABLET PO SCH ×2 (06:24→11:36)
[2021-08-26] MEDS: hydrOXYzine PAMOATE 25 MG CAPSULE (FP) PO SCH ×3 (06:25→13:38)
[2021-08-26 10:00] LABS: BLOOD UREA NITROGEN 8.9 mg/dL (7-18); CALCIUM 8.9 mg/dL (8.5-10.1)
[2021-08-26 10:01] LABS: ALBUMIN 3.2 g/dl (3.4-5.0)
[2021-08-26 10:04] LABS: CREATININE 0.7 mg/dL (0.55-1.3); HEMOGLOBIN 10.8 GM/dL (11.7-16.9); MCH 24.5 pg (25.7-33.7); MCHC 32.7 g/dl (32.0-35.9); MEAN PLT VOLUME 7.7 fl (7.5-11.1); PLATELET COUNT 261 10^3/uL (134-434); RBC 4.39 M/mm3 (4.00-5.60); WHITE BLOOD COUNT 9.5 K/mm3 (4.0-10.0)
[2021-08-26 10:05] LABS: BILIRUBIN,TOTAL 0.8 mg/dL (0.2-1); TOT PROT 6.5 g/dl (6.4-8.2)
[2021-08-26] MEDS: PRENATAL VITAMINS W/ FOLIC ACID TABLET (FP) PO SCH (11:35)
[2021-08-26] MEDS: LIDOCAINE 5% TOPICAL PATCH TP SCH (11:35)
[2021-08-26] MEDS: amLODIPine BESYLATE 10 MG TABLET (FP) PO SCH (11:35)
[2021-08-26] MEDS: PANTOPRAZOLE 40 MG TABLET PO SCH (11:36)
[2021-08-26] MEDS: BUDESONIDE/FORMETEROL FUMARATE 160/4.5 mcg INHALER IH SCH (11:36)
[2021-08-26 12:46] VITALS: BP 135/75; PULSE 124; TEMP 98.7
[2021-08-26 14:07] LABS: SARS-CoV-2 NAA Not Detected (Not Detected)
[2021-08-26] MEDS ORDERED: POTASSIUM CHLORIDE ORAL LIQUID 20 MEQ/15 ML PO ONE (15:21)
[2021-08-26] MEDS ORDERED: POTASSIUM CHLORIDE ORAL LIQUID 20 MEQ/15 ML PO SCH (22:00)
[2021-08-26] MEDS ORDERED: LACTULOSE 20 GM/30 ML UDC (FOR ORAL USE ONLY) PO SCH (22:00)
[2021-08-26] MEDS ORDERED: BACITRACIN 0.9 GM PACKET TP SCH (22:00)
[2021-08-27] MEDS ORDERED: LORazepam 0.5 MG TABLET PO PRN
[2021-08-27] MEDS ORDERED: LORazepam 0.5 MG TABLET PO SCH (05:00)
[2021-08-28] MEDS ORDERED: LORazepam 0.5 MG TABLET PO ONE (05:00)
== END 2021-08-26 15:46 | disposition left against medical advice (07) | DRG 894 ==
LOC: YASAS 09:17 → Y3N 19:54
PROVIDERS: ADMIT Allergy & Immunology; ATTEND Allergy & Immunology
PROC: HZ2ZZZZ Detoxification Services for Substance Abuse Treatment (ICD-10-PCS; principal; 2021-08-24)
DX: F10.230 Alcohol dependence with withdrawal, uncomplicated (principal); J42 Unspecified chronic bronchitis; E87.6 Hypokalemia; I10 Essential (primary) hypertension; K21.9 Gastro-esophageal reflux disease without esophagitis; M54.50 Low back pain, unspecified; G89.29 Other chronic pain; L97.519 Non-pressure chronic ulcer of other part of right foot with unspecified severity; R79.89 Other specified abnormal findings of blood chemistry; R29.6 Repeated falls; Z99.89 Dependence on other enabling machines and devices; Z59.00 Homelessness unspecified
CPT/HCPCS: 36415; 80053; 82140; 85027; 86780; 99281-25; 99282-25; C9803-CS; U0003; U0005

== ENCOUNTER 2021-08-27 18:55 | Observation (INO) | payer OTHER ==
[2021-08-27 19:02] VITALS: BMI 33.0
[2021-08-27] MEDS ORDERED: ACETAMINOPHEN 500 MG TABLET (FP) PO ONE (19:11)
[2021-08-27] MEDS ORDERED: ACETAMINOPHEN 500 MG TABLET (FP) ONE (19:44)
[2021-08-28] MEDS ORDERED: chlordiazePOXIDE HCL 25 MG CAPSULE PO ONE (01:28)
[2021-08-28] MEDS ORDERED: chlordiazePOXIDE HCL 25 MG CAPSULE ONE (04:02)
[2021-08-28 07:50] LABS: BASO % 0.6 % (0-2.0); EOS % 2.5 % (0-4.5); HEMATOCRIT 29.6 % (35.4-49); HEMOGLOBIN 9.5 GM/dL (11.7-16.9); LYMPH % 15.9 % (8-40); MCH 24.3 pg (25.7-33.7); MCHC 32.1 g/dl (32.0-35.9); MEAN CELL VOLUME 75.6 fl (80-96); MEAN PLT VOLUME 7.8 fl (7.5-11.1); MONO % 8.7 % (3.8-10.2); NEUT % 72.3 % (42.8-82.8); PLATELET COUNT 235 10^3/uL (134-434); RBC 3.92 M/mm3 (4.00-5.60)
[2021-08-28 07:56] LABS: INR 1.21 (0.83-1.09)
[2021-08-28 07:59] LABS: ACTIVATED PTT 27.1 SECONDS (25.2-36.5)
[2021-08-28 08:16] LABS: CALCIUM 7.8 mg/dL (8.5-10.1)
[2021-08-28 08:17] LABS: ALBUMIN 3.1 g/dl (3.4-5.0); BLOOD UREA NITROGEN 9.6 mg/dL (7-18); MAGNESIUM 1.4 mg/dL (1.8-2.4)
[2021-08-28 08:19] LABS: CREATININE 0.6 mg/dL (0.55-1.3)
[2021-08-28 08:21] LABS: BILIRUBIN,TOTAL 0.8 mg/dL (0.2-1); TOT PROT 6.4 g/dl (6.4-8.2)
[2021-08-28] MEDS ORDERED: MAGNESIUM SULF 50% (8.12 MEQ/2 ML-1 GM VIAL) IVPB ONE (08:41)
[2021-08-28] MEDS ORDERED: MAGNESIUM SULFATE IN WATER 2 GM/50 ML IVPB IVPB ONE (09:37)
[2021-08-28] MEDS ORDERED: POTASSIUM CHLORIDE TABS 20 MEQ TABLET.ER (FP) PO ONE (09:37)
[2021-08-28] MEDS: POTASSIUM CHLORIDE TABS 20 MEQ TABLET.ER (FP) PO ONE ×2 (09:44→09:48)
[2021-08-28] MEDS ORDERED: ACETAMINOPHEN 1000 MG/100 ML BAG IVPB ONE (09:45)
[2021-08-28] MEDS ORDERED: ALBUTEROL SO4 HFA INHALER IH PRN (09:58)
[2021-08-28] MEDS ORDERED: THIAMINE HCL 100 MG TABLET (FP) PO SCH (10:00)
[2021-08-28] MEDS ORDERED: amLODIPine BESYLATE 10 MG TABLET (FP) PO SCH (10:00)
[2021-08-28] MEDS ORDERED: ENOXAPARIN NA (PORCINE) 40 MG/0.4 ML DISP.SYRIN SQ SCH (10:00)
[2021-08-28] MEDS ORDERED: PANTOPRAZOLE 40 MG TABLET PO SCH (10:00)
[2021-08-28] MEDS ORDERED: FOLIC ACID 1 MG TABLET (FP) PO SCH (10:00)
[2021-08-28] MEDS ORDERED: ACETAMINOPHEN INJECTION 100 ML IVPB ONE (10:07)
[2021-08-28] MEDS ORDERED: PANTOPRAZOLE 40 MG TABLET ONE (10:24)
[2021-08-28] MEDS ORDERED: ENOXAPARIN NA (PORCINE) 40 MG/0.4 ML DISP.SYRIN SQ ONE (10:25)
[2021-08-28] MEDS ORDERED: LABETALOL HCL 100 MG TABLET (FP) ONE (10:25)
[2021-08-28] MEDS ORDERED: THIAMINE HCL 100 MG TABLET (FP) ONE (10:25)
[2021-08-28] MEDS ORDERED: FOLIC ACID 1 MG TABLET (FP) ONE (10:25)
[2021-08-28] MEDS ORDERED: amLODIPine BESYLATE 10 MG TABLET (FP) ONE (10:27)
[2021-08-28] MEDS: BUDESONIDE/FORMETEROL FUMARATE 160/4.5 mcg INHALER IH SCH ×2 (10:55→22:48)
[2021-08-28] MEDS ORDERED: MAG HYDROX/AL HYDROX/SIMETH 30 ML UNIT-DOSE CUP PO ONE (11:00)
[2021-08-28] MEDS: FERROUS SO4 325 MG TABLET (FP) PO SCH ×2 (12:00→20:12)
[2021-08-28] MEDS ORDERED: SIMETHICONE 80 MG TAB.CHEW (FP) PO PRN (14:32)
[2021-08-28] MEDS ORDERED: LACTULOSE 20 GM/30 ML UDC (FOR ORAL USE ONLY) PO PRN (14:32)
[2021-08-28] MEDS ORDERED: ACETAMINOPHEN 325 MG TABLET (FP) PO PRN (14:35)
[2021-08-28] MEDS ORDERED: LIDOCAINE 5% TOPICAL PATCH TP SCH (14:45)
[2021-08-28] MEDS ORDERED: POTASSIUM CHLORIDE ORAL LIQUID 20 MEQ/15 ML PO SCH (22:00)
[2021-08-28] MEDS ORDERED: LIDOCAINE PATCH REMOVAL MC SCH (22:00)
[2021-08-29 07:06] VITALS: BP 139/85; PULSE 81; TEMP 98
[2021-08-29 07:16] LABS: HEMATOCRIT 27.8 % (35.4-49); HEMOGLOBIN 9.3 GM/dL (11.7-16.9); MCHC 33.5 g/dl (32.0-35.9); MEAN CELL VOLUME 74.6 fl (80-96); MEAN PLT VOLUME 7.6 fl (7.5-11.1); PLATELET COUNT 169 10^3/uL (134-434); RBC 3.73 M/mm3 (4.00-5.60); RDW 20.4 % (11.9-15.9); WHITE BLOOD COUNT 6.9 K/mm3 (4.0-10.0)
[2021-08-29 07:40] LABS: CALCIUM 8.4 mg/dL (8.5-10.1)
[2021-08-29 07:41] LABS: ALBUMIN 2.9 g/dl (3.4-5.0); BLOOD UREA NITROGEN 9.1 mg/dL (7-18); MAGNESIUM 1.8 mg/dL (1.8-2.4)
[2021-08-29 07:44] LABS: CREATININE 0.5 mg/dL (0.55-1.3); PHOSPHOROUS 2.8 mg/dL (2.5-4.9)
[2021-08-29 07:46] LABS: BILIRUBIN,TOTAL 0.8 mg/dL (0.2-1); TOT PROT 5.7 g/dl (6.4-8.2)
[2021-08-29] MEDS ORDERED: POTASSIUM CHLORIDE TABS 20 MEQ TABLET.ER (FP) PO SCH (10:00)
[2021-08-29 11:10] LABS: SARS-CoV-2 NAA Not Detected (Not Detected)
== END 2021-08-29 08:30 | disposition left against medical advice (07) ==
LOC: JER 18:55 → JERBED 08-28 09:56
PROVIDERS: ADMIT Internal Medicine
PROC: 3E033GC Introduction of Other Therapeutic Substance into Peripheral Vein, Percutaneous Approach (ICD-10-PCS; principal; 2021-08-28)
DX: F10.99 Alcohol use, unspecified with unspecified alcohol-induced disorder (principal); R07.9 Chest pain, unspecified; I10 Essential (primary) hypertension; E78.5 Hyperlipidemia, unspecified; J44.9 Chronic obstructive pulmonary disease, unspecified; K21.9 Gastro-esophageal reflux disease without esophagitis; C45.7 Mesothelioma of other sites; M54.50 Low back pain, unspecified; G89.29 Other chronic pain
CPT/HCPCS: 36415; 70450-TC; 71045-TC-FY; 72128-TC; 80053; 83735; 84100; 84484; 85025; 85027; 85610; 85730; 93005; 93010; 96374; 99285-25; C9803; G0378; U0003; U0005

== ENCOUNTER 2021-08-30 15:26 | Emergency (ER) | payer OTHER ==
[2021-08-30 15:41] VITALS: BMI 37.3
[2021-08-31 06:57] VITALS: BP 115/72; PULSE 87; TEMP 98.2
== END 2021-08-31 07:03 | disposition home or self-care (01) ==
LOC: JER 15:26
DX: F10.129 Alcohol abuse with intoxication, unspecified (principal)
CPT/HCPCS: 99281-25

== ENCOUNTER 2021-09-01 19:30 | Emergency (ER) | payer OTHER ==
[2021-09-01 19:47] VITALS: BP 110/77; PULSE 78; TEMP 97.8; BMI 33.3
== END 2021-09-01 22:00 | disposition left against medical advice (07) ==
LOC: JER 19:30
DX: F10.29 Alcohol dependence with unspecified alcohol-induced disorder (principal)
CPT/HCPCS: 99281-25

== ENCOUNTER 2021-09-02 01:35 | Emergency (ER) | payer OTHER ==
[2021-09-02 02:00] VITALS: BP 113/71; PULSE 85; TEMP 97.7; BMI 30.1
[2021-09-02] MEDS ORDERED: KETOROLAC TROMETHAMINE 30 MG/1 ML VIAL IM ONE (02:56)
[2021-09-02] MEDS ORDERED: METHOCARBAMOL 500 MG TABLET PO ONE (03:04)
[2021-09-02] MEDS ORDERED: METHOCARBAMOL 500 MG TABLET ONE (03:08)
== END 2021-09-02 06:59 | disposition home or self-care (01) ==
LOC: JER 01:35
DX: M54.50 Low back pain, unspecified (principal); F10.10 Alcohol abuse, uncomplicated
CPT/HCPCS: 99283-25

== ENCOUNTER 2021-09-03 15:19 | Emergency (ER) | payer OTHER ==
[2021-09-03 15:39] VITALS: BP 144/86; PULSE 97; TEMP 97.8; BMI 33.0
[2021-09-03] MEDS ORDERED: METHOCARBAMOL 500 MG TABLET PO ONE (15:41)
[2021-09-03] MEDS ORDERED: METHOCARBAMOL 500 MG TABLET ONE (15:49)
[2021-09-04] MEDS ORDERED: chlordiazePOXIDE HCL 25 MG CAPSULE ONE (10:48)
== END 2021-09-03 19:30 | disposition left against medical advice (07) ==
LOC: JER 15:19
DX: M54.6 Pain in thoracic spine (principal)
CPT/HCPCS: 99283-25

== ENCOUNTER 2021-09-03 21:10 | Inpatient (IN) | payer OTHER ==
[2021-09-03 21:19] VITALS: BMI 33.0
[2021-09-04 00:02] LABS: RBC 3.85 M/mm3 (4.00-5.60); WHITE BLOOD COUNT 5.9 K/mm3 (4.0-10.0)
[2021-09-04 00:03] LABS: EOS % 1.9 % (0-4.5); HEMOGLOBIN 9.3 GM/dL (11.7-16.9); LYMPH % 38.3 % (8-40); MCH 24.2 pg (25.7-33.7); MCHC 32.1 g/dl (32.0-35.9); MEAN CELL VOLUME 75.4 fl (80-96); MEAN PLT VOLUME 6.4 fl (7.5-11.1); MONO % 7.3 % (3.8-10.2); NEUT % 51.5 % (42.8-82.8); PLATELET COUNT 279 10^3/uL (134-434)
[2021-09-04 00:31] LABS: CALCIUM 8.1 mg/dL (8.5-10.1)
[2021-09-04 00:33] LABS: ALBUMIN 3.1 g/dl (3.4-5.0)
[2021-09-04 00:35] LABS: CREATININE 0.7 mg/dL (0.55-1.3)
[2021-09-04 00:36] LABS: BILIRUBIN,TOTAL 0.2 mg/dL (0.2-1); TOT PROT 6.1 g/dl (6.4-8.2)
[2021-09-04] MEDS ORDERED: POLYETHYLENE GLYCOL (HEALTHYLAX) 3350 17 GM PACKET PO PRN (02:59)
[2021-09-04] MEDS ORDERED: ACETAMINOPHEN 325 MG TABLET (FP) PO PRN (02:59)
[2021-09-04 03:16] LABS: ANISOCYTOSIS 2+; MACROCYTOSIS 0; OVALOCYTE 2+; TARGET CELLS 1+
[2021-09-04] MEDS: FOLIC ACID INJECTION - 1 MG, THIAMINE HCL 100 MG, MULTIVIT INJECTION ADULT 10 ML in SOD... IVPB ONE ×2 (06:07→10:12)
[2021-09-04] MEDS ORDERED: SIMETHICONE 80 MG TAB.CHEW (FP) PO PRN (06:19)
[2021-09-04] MEDS ORDERED: ALBUTEROL SO4 HFA INHALER IH PRN (06:19)
[2021-09-04] MEDS ORDERED: FERROUS SO4 325 MG TABLET (FP) ONE (08:40)
[2021-09-04] MEDS: FERROUS SO4 325 MG TABLET (FP) PO SCH ×4 (08:45→17:57)
[2021-09-04] MEDS ORDERED: PANTOPRAZOLE 40 MG TABLET ONE (09:48)
[2021-09-04] MEDS ORDERED: amLODIPine BESYLATE 10 MG TABLET (FP) ONE (09:48)
[2021-09-04] MEDS ORDERED: LIDOCAINE 5% TOPICAL PATCH ONE (09:49)
[2021-09-04] MEDS ORDERED: ENOXAPARIN NA (PORCINE) 40 MG/0.4 ML DISP.SYRIN SQ ONE (09:49)
[2021-09-04] MEDS: ENOXAPARIN NA (PORCINE) 40 MG/0.4 ML DISP.SYRIN SQ SCH (09:57)
[2021-09-04] MEDS: LIDOCAINE 5% TOPICAL PATCH TP SCH (09:57)
[2021-09-04] MEDS: amLODIPine BESYLATE 10 MG TABLET (FP) PO SCH (09:58)
[2021-09-04] MEDS: PANTOPRAZOLE 40 MG TABLET PO SCH (09:58)
[2021-09-04] MEDS: FOLIC ACID 1 MG TABLET (FP) PO SCH (10:12)
[2021-09-04] MEDS: THIAMINE HCL 100 MG TABLET (FP) PO SCH (10:13)
[2021-09-04] MEDS: MULTIVITAMINS (DAILY MVI) TABLET (FP) PO SCH (10:13)
[2021-09-04] MEDS: chlordiazePOXIDE HCL 25 MG CAPSULE PO SCH ×3 (10:54→23:20)
[2021-09-04] MEDS: BUDESONIDE/FORMETEROL FUMARATE 160/4.5 mcg INHALER IH SCH ×2 (11:34→22:45)
[2021-09-04] MEDS ORDERED: chlordiazePOXIDE HCL 25 MG CAPSULE ONE (11:54)
[2021-09-04] MEDS: chlordiazePOXIDE HCL 25 MG CAPSULE PO PRN (11:56)
[2021-09-04] MEDS: BACLOFEN 10 MG TABLET (FP) PO SCH ×2 (15:50→22:27)
[2021-09-04 17:49] LABS: COCAINE, UR NEGATIVE (NEGATIVE); OPIATES, URI NEGATIVE (NEGATIVE); PHENCYCLIDINE,URINE NEGATIVE (NEGATIVE)
[2021-09-04 17:50] LABS: METHADONE, UR NEGATIVE (NEGATIVE)
[2021-09-04 17:51] LABS: URINE AMPHETAMINES NEGATIVE (NEGATIVE); URINE BARBITURATES NEGATIVE (NEGATIVE); URINE BENZODIAZEPINES POSITIVE (NEGATIVE)
[2021-09-04] MEDS: LIDOCAINE PATCH REMOVAL MC SCH (22:27)
[2021-09-05] MEDS: chlordiazePOXIDE HCL 25 MG CAPSULE PO SCH ×4 (05:35→23:14)
[2021-09-05] MEDS: BACLOFEN 10 MG TABLET (FP) PO SCH ×3 (05:35→22:14)
[2021-09-05 07:07] LABS: SARS-CoV-2 NAA Not Detected (Not Detected)
[2021-09-05] MEDS: ENOXAPARIN NA (PORCINE) 40 MG/0.4 ML DISP.SYRIN SQ SCH (09:56)
[2021-09-05] MEDS: FOLIC ACID 1 MG TABLET (FP) PO SCH (09:56)
[2021-09-05] MEDS: LIDOCAINE 5% TOPICAL PATCH TP SCH (09:56)
[2021-09-05] MEDS: FERROUS SO4 325 MG TABLET (FP) PO SCH ×3 (09:56→16:36)
[2021-09-05] MEDS: amLODIPine BESYLATE 10 MG TABLET (FP) PO SCH (09:57)
[2021-09-05] MEDS: THIAMINE HCL 100 MG TABLET (FP) PO SCH (09:57)
[2021-09-05] MEDS: chlordiazePOXIDE HCL 25 MG CAPSULE PO PRN (09:57)
[2021-09-05] MEDS: BUDESONIDE/FORMETEROL FUMARATE 160/4.5 mcg INHALER IH SCH ×2 (09:58→22:15)
[2021-09-05] MEDS: PANTOPRAZOLE 40 MG TABLET PO SCH (09:58)
[2021-09-05] MEDS: MULTIVITAMINS (DAILY MVI) TABLET (FP) PO SCH (09:58)
[2021-09-05 10:59] LABS: BASO % 0.9 % (0-2.0); EOS % 2.6 % (0-4.5); HEMATOCRIT 31.2 % (35.4-49); HEMOGLOBIN 10.2 GM/dL (11.7-16.9); LYMPH % 18.7 % (8-40); MCH 24.5 pg (25.7-33.7); MCHC 32.8 g/dl (32.0-35.9); MEAN CELL VOLUME 74.6 fl (80-96); MEAN PLT VOLUME 6.9 fl (7.5-11.1); MONO % 9.6 % (3.8-10.2); NEUT % 68.2 % (42.8-82.8); PLATELET COUNT 245 10^3/uL (134-434); RBC 4.18 M/mm3 (4.00-5.60); RDW 20.2 % (11.9-15.9)
[2021-09-05 11:17] LABS: CALCIUM 8.3 mg/dL (8.5-10.1)
[2021-09-05 11:18] LABS: ALBUMIN 2.9 g/dl (3.4-5.0); BLOOD UREA NITROGEN 5.1 mg/dL (7-18)
[2021-09-05 11:21] LABS: CREATININE 0.7 mg/dL (0.55-1.3)
[2021-09-05 11:23] LABS: BILIRUBIN,TOTAL 1.2 mg/dL (0.2-1); TOT PROT 6.1 g/dl (6.4-8.2)
[2021-09-05] MEDS ORDERED: POTASSIUM CHLORIDE TABS 20 MEQ TABLET.ER (FP) PO ONE (11:51)
[2021-09-05 14:43] LABS: MAGNESIUM 1.4 mg/dL (1.8-2.4)
[2021-09-05 14:44] LABS: PHOSPHOROUS 3.2 mg/dL (2.5-4.9)
[2021-09-05] MEDS: LIDOCAINE PATCH REMOVAL MC SCH (22:15)
[2021-09-06] MEDS: BACLOFEN 10 MG TABLET (FP) PO SCH ×3 (05:37→23:08)
[2021-09-06] MEDS: chlordiazePOXIDE HCL 25 MG CAPSULE PO SCH ×4 (05:37→23:08)
[2021-09-06] MEDS ORDERED: MAGNESIUM SULF 50% (8.12 MEQ/2 ML-1 GM VIAL) IVPB ONE (07:37)
[2021-09-06] MEDS ORDERED: MAGNESIUM OXIDE 400 MG TABLET (FP) PO ONE (07:43)
[2021-09-06] MEDS: FERROUS SO4 325 MG TABLET (FP) PO SCH ×3 (08:41→16:55)
[2021-09-06] MEDS: FOLIC ACID 1 MG TABLET (FP) PO SCH (09:35)
[2021-09-06] MEDS: PANTOPRAZOLE 40 MG TABLET PO SCH (09:36)
[2021-09-06] MEDS: LIDOCAINE 5% TOPICAL PATCH TP SCH (09:36)
[2021-09-06] MEDS: ENOXAPARIN NA (PORCINE) 40 MG/0.4 ML DISP.SYRIN SQ SCH (09:36)
[2021-09-06] MEDS: MULTIVITAMINS (DAILY MVI) TABLET (FP) PO SCH (09:37)
[2021-09-06] MEDS: THIAMINE HCL 100 MG TABLET (FP) PO SCH (09:37)
[2021-09-06] MEDS: BUDESONIDE/FORMETEROL FUMARATE 160/4.5 mcg INHALER IH SCH ×3 (09:37→23:15)
[2021-09-06] MEDS: amLODIPine BESYLATE 10 MG TABLET (FP) PO SCH (09:40)
[2021-09-06] MEDS ORDERED: ALBUTEROL SO4 2.5/IPRATROPIUM 0.5 INH SOL 3 ML VIAL.NEB. NEB PRN (20:15)
[2021-09-06] MEDS: LIDOCAINE PATCH REMOVAL MC SCH (23:12)
[2021-09-07] MEDS ORDERED: chlordiazePOXIDE HCL 10 MG CAPSULE PO PRN
[2021-09-07] MEDS: BACLOFEN 10 MG TABLET (FP) PO SCH ×2 (05:15→15:20)
[2021-09-07] MEDS: chlordiazePOXIDE HCL 10 MG CAPSULE PO SCH ×2 (05:15→13:09)
[2021-09-07 10:12] VITALS: BP 115/61; PULSE 96; TEMP 98.3
[2021-09-07] MEDS: LIDOCAINE 5% TOPICAL PATCH TP SCH (10:12)
[2021-09-07] MEDS: FERROUS SO4 325 MG TABLET (FP) PO SCH ×2 (10:13→13:07)
[2021-09-07] MEDS: amLODIPine BESYLATE 10 MG TABLET (FP) PO SCH (10:13)
[2021-09-07] MEDS: FOLIC ACID 1 MG TABLET (FP) PO SCH (10:13)
[2021-09-07] MEDS: ENOXAPARIN NA (PORCINE) 40 MG/0.4 ML DISP.SYRIN SQ SCH (10:13)
[2021-09-07] MEDS: MULTIVITAMINS (DAILY MVI) TABLET (FP) PO SCH (10:13)
[2021-09-07] MEDS: THIAMINE HCL 100 MG TABLET (FP) PO SCH (10:13)
[2021-09-07] MEDS: PANTOPRAZOLE 40 MG TABLET PO SCH (10:13)
[2021-09-07] MEDS: BUDESONIDE/FORMETEROL FUMARATE 160/4.5 mcg INHALER IH SCH (10:13)
[2021-09-08] MEDS ORDERED: chlordiazePOXIDE HCL 10 MG CAPSULE PO SCH (05:00)
[2021-09-09] MEDS ORDERED: chlordiazePOXIDE HCL 10 MG CAPSULE PO ONE (05:00)
== END 2021-09-07 15:56 | disposition left against medical advice (07) | DRG 552 ==
LOC: JER 21:10 → JERBED 09-04 01:11 → J8W 09-04 13:37 → OBSVTOIN 09-06 09:48
PROVIDERS: ADMIT Hospitalist; ATTEND Internal Medicine
PROC: HZ2ZZZZ Detoxification Services for Substance Abuse Treatment (ICD-10-PCS; principal; 2021-09-04)
DX: M54.50 Low back pain, unspecified (principal); F10.139 Alcohol abuse with withdrawal, unspecified; I10 Essential (primary) hypertension; E78.5 Hyperlipidemia, unspecified; K21.9 Gastro-esophageal reflux disease without esophagitis; J44.9 Chronic obstructive pulmonary disease, unspecified; C45.9 Mesothelioma, unspecified; I48.91 Unspecified atrial fibrillation; Z59.00 Homelessness unspecified; D64.9 Anemia, unspecified; M54.9 Dorsalgia, unspecified; M19.90 Unspecified osteoarthritis, unspecified site
CPT/HCPCS: 36415; 80053; 80307; 83735; 84100; 85025; 97116-GP; 97161-GP; 99283-25; 99285-25; C9803-CS; G0378; J0475; U0003; U0005

== ENCOUNTER 2021-09-09 16:34 | Emergency (ER) | payer OTHER ==
[2021-09-09 16:45] VITALS: BP 118/85; PULSE 96; TEMP 98.6; BMI 43.0
[2021-09-09] MEDS ORDERED: ACETAMINOPHEN 500 MG TABLET (FP) PO ONE (19:11)
[2021-09-09] MEDS ORDERED: ACETAMINOPHEN 325 MG TABLET (FP) ONE (19:25)
== END 2021-09-10 06:31 | disposition home or self-care (01) ==
LOC: JER 16:34
DX: F10.10 Alcohol abuse, uncomplicated (principal); M54.50 Low back pain, unspecified; Z59.00 Homelessness unspecified
CPT/HCPCS: 99284-25

== ENCOUNTER 2021-09-12 20:01 | Inpatient (IN) | payer OTHER ==
[2021-09-12 20:24] VITALS: BMI 35.9
[2021-09-13] MEDS ORDERED: ACETAMINOPHEN 500 MG TABLET (FP) PO ONE (05:15)
[2021-09-13] MEDS ORDERED: ACETAMINOPHEN 325 MG TABLET (FP) ONE (06:03)
[2021-09-13 08:29] LABS: BASO % 0.8 % (0-2.0); EOS % 2.6 % (0-4.5); HEMATOCRIT 28.6 % (35.4-49); HEMOGLOBIN 9.1 GM/dL (11.7-16.9); MCH 24.1 pg (25.7-33.7); MEAN CELL VOLUME 75.3 fl (80-96); MEAN PLT VOLUME 7.4 fl (7.5-11.1); MONO % 10.2 % (3.8-10.2); NEUT % 64.4 % (42.8-82.8); PLATELET COUNT 369 10^3/uL (134-434); RBC 3.79 M/mm3 (4.00-5.60); RDW 21.1 % (11.9-15.9)
[2021-09-13 08:49] LABS: CALCIUM 8.8 mg/dL (8.5-10.1)
[2021-09-13 08:50] VITALS: BP 127/75; PULSE 91; TEMP 99.3
[2021-09-13 08:50] LABS: BLOOD UREA NITROGEN 8.3 mg/dL (7-18)
[2021-09-13 08:53] LABS: CREATININE 0.6 mg/dL (0.55-1.3)
[2021-09-13 08:54] LABS: BILIRUBIN,TOTAL 0.4 mg/dL (0.2-1)
[2021-09-13 08:55] LABS: TOT PROT 6.4 g/dl (6.4-8.2)
[2021-09-13 09:07] LABS: ANISOCYTOSIS 1+; MACROCYTOSIS 0
== END 2021-09-13 10:15 | disposition left against medical advice (07) | DRG 552 ==
LOC: JER 20:01 → JERBED 09-13 09:35
PROVIDERS: ADMIT Internal Medicine; ATTEND Internal Medicine
DX: M54.50 Low back pain, unspecified (principal); E46 Unspecified protein-calorie malnutrition; E78.5 Hyperlipidemia, unspecified; I10 Essential (primary) hypertension; J44.9 Chronic obstructive pulmonary disease, unspecified; M79.601 Pain in right arm; K21.9 Gastro-esophageal reflux disease without esophagitis; R29.6 Repeated falls; F10.20 Alcohol dependence, uncomplicated; D64.9 Anemia, unspecified; Z68.35 Body mass index [BMI] 35.0-35.9, adult; Z85.89 Personal history of malignant neoplasm of other organs and systems
CPT/HCPCS: 36415; 70450-TC; 80053; 85025; 93005; 93010; 99285-25; C9803-CS; U0003; U0005

== ENCOUNTER 2021-09-13 20:44 | Emergency (ER) | payer OTHER ==
[2021-09-13 20:58] VITALS: BMI 33.0
[2021-09-14 08:38] VITALS: BP 154/96; PULSE 78; TEMP 97.3
== END 2021-09-14 11:28 | disposition home or self-care (01) ==
LOC: JER 20:44
DX: Z59.00 Homelessness unspecified (principal)
CPT/HCPCS: 99281-25

== ENCOUNTER → 2021-09-15 | Emergency (ER) | payer OTHER ==
[~2021-09-15] MED LIST changes: -ACETAMINOPHEN 325 MG TABLET (FP) PO ONE; +DEXAMETHASONE SOD PHOSPHATE 10 MG/1 ML VIAL ONE; -LIDOCAINE 5% TOPICAL PATCH TP ONE; -LIDOCAINE PATCH REMOVAL MC SCH; +MAGNESIUM OXIDE 400 MG TABLET (FP) ONE; -METHOCARBAMOL 500 MG TABLET PO ONE; +PIPERACILLIN/TAZOB 3.375 GM 3.375 GM/50 ML BAG IVPB ONE; +VANCOMYCIN 1 GRAM (PRE-DOCKED) 1,000 MG/250 ML BAG IVPB ONE
[2021-09-15 14:19] VITALS: BP 125/77; PULSE 80; TEMP 97; BMI 33.0
== END | disposition home or self-care (01) ==
LOC: JER 14:14
DX: M54.89 Other dorsalgia (principal); F10.929 Alcohol use, unspecified with intoxication, unspecified
CPT/HCPCS: 99283-25

== ENCOUNTER 2021-09-17 20:49 | Emergency (ER) | payer OTHER ==
[2021-09-17 21:07] VITALS: BP 147/89; PULSE 89; TEMP 98.3; BMI 34.4
== END 2021-09-18 06:37 | disposition home or self-care (01) ==
LOC: JER 20:49
DX: G89.29 Other chronic pain (principal); Z59.00 Homelessness unspecified
CPT/HCPCS: 99281-25

== ENCOUNTER 2021-09-18 22:18 | Inpatient (IN) | payer OTHER ==
[2021-09-18 22:26] VITALS: BMI 43.0
[2021-09-18 23:32] LABS: WHITE BLOOD COUNT 7.5 K/mm3 (4.0-10.0)
[2021-09-18 23:33] LABS: BASO % 2.1 % (0-2.0); HEMATOCRIT 28.6 % (35.4-49); HEMOGLOBIN 8.8 GM/dL (11.7-16.9); LYMPH % 34.7 % (8-40); MCH 23.5 pg (25.7-33.7); MCHC 30.9 g/dl (32.0-35.9); MEAN PLT VOLUME 7.1 fl (7.5-11.1); MONO % 8.3 % (3.8-10.2); NEUT % 50.9 % (42.8-82.8); RBC 3.76 M/mm3 (4.00-5.60); RDW 21.5 % (11.9-15.9)
[2021-09-18 23:48] LABS: PLATELET COUNT 430 10^3/uL (134-434)
[2021-09-18 23:53] LABS: ALBUMIN 2.5 g/dl (3.4-5.0); BLOOD UREA NITROGEN 8.6 mg/dL (7-18); CALCIUM 7.9 mg/dL (8.5-10.1)
[2021-09-18 23:55] LABS: ANISOCYTOSIS 2+; PLATELET ESTIMATE INCREASED
[2021-09-18 23:56] LABS: CREATININE 0.8 mg/dL (0.55-1.3)
[2021-09-18 23:58] LABS: BILIRUBIN,TOTAL 0.2 mg/dL (0.2-1); TOT PROT 6.1 g/dl (6.4-8.2)
[2021-09-19] MEDS ORDERED: PIPERACILLIN/TAZOB 3.375 GM 3.375 GM in DEXTROSE 5%-WATER - 50 ML IVPB ONE (01:31)
[2021-09-19] MEDS ORDERED: VANCOMYCIN 1 GM in D5W (PRE-DOCKED) 1,000 MG/250 ML IVPB ONE (01:31)
[2021-09-19] MEDS ORDERED: DEXAMETHASONE SOD PHOSPHATE 10 MG/1 ML VIAL IVPUSH ONE (01:51)
[2021-09-19] MEDS ORDERED: FOLIC ACID INJECTION - 1 MG, THIAMINE HCL 200 MG, MULTIVIT INJECTION ADULT 10 ML in SOD... IVPB ONE (02:42)
[2021-09-19] MEDS ORDERED: LORazepam 2 MG/ML SDV VIAL IVPUSH PRN (02:43)
[2021-09-19] MEDS ORDERED: LORazepam 1 MG TABLET PO PRN (02:43)
[2021-09-19 04:31] LABS: BLOOD UREA NITROGEN 7.7 mg/dL (7-18)
[2021-09-19 04:34] LABS: CREATININE 0.7 mg/dL (0.55-1.3)
[2021-09-19] MEDS ORDERED: LACTATED RINGERS SOLUTION 1000 ML INFUS.BAG IV ONE (04:48)
[2021-09-19] MEDS ORDERED: LORazepam 1 MG TABLET PO SCH (05:00)
[2021-09-19 05:51] LABS: HEMATOCRIT 30.9 % (35.4-49); HEMOGLOBIN 9.4 GM/dL (11.7-16.9); MCH 23.2 pg (25.7-33.7); MCHC 30.5 g/dl (32.0-35.9); MEAN PLT VOLUME 6.8 fl (7.5-11.1); PLATELET COUNT 417 10^3/uL (134-434); RBC 4.07 M/mm3 (4.00-5.60); RDW 20.4 % (11.9-15.9); WHITE BLOOD COUNT 4.2 K/mm3 (4.0-10.0)
[2021-09-19 06:14] LABS: CALCIUM 7.8 mg/dL (8.5-10.1)
[2021-09-19 06:15] LABS: ALBUMIN 2.6 g/dl (3.4-5.0); BLOOD UREA NITROGEN 7.4 mg/dL (7-18); MAGNESIUM 1.6 mg/dL (1.8-2.4)
[2021-09-19 06:18] LABS: CREATININE 0.6 mg/dL (0.55-1.3); PHOSPHOROUS 3.5 mg/dL (2.5-4.9)
[2021-09-19 06:19] LABS: BILIRUBIN,TOTAL 0.2 mg/dL (0.2-1); TOT PROT 6.4 g/dl (6.4-8.2)
[2021-09-19] MEDS ORDERED: MAGNESIUM OXIDE 400 MG TABLET (FP) PO ONE ×2 (06:33→07:00)
[2021-09-19] MEDS ORDERED: LORazepam 0.5 MG TABLET PO PRN (08:25)
[2021-09-19 09:13] LABS: ANISOCYTOSIS 0; MACROCYTOSIS 0
[2021-09-19] MEDS ORDERED: DEXAMETHASONE SOD PHOSPHATE 4 MG/1 ML VIAL IVPUSH SCH (10:00)
[2021-09-19] MEDS ORDERED: AMPICILLIN NA/SULBACTAM NA 1.5 GM in SODIUM CHLORIDE 100 ML IVPB SCH (10:00)
[2021-09-19] MEDS ORDERED: ENOXAPARIN NA (PORCINE) 40 MG/0.4 ML DISP.SYRIN SQ SCH (10:00)
[2021-09-19 12:26] VITALS: BP 164/96; PULSE 101; TEMP 98.2
[2021-09-19] MEDS ORDERED: NYSTATIN 100,000 UNIT/GM TOPICAL CREAM 15 GM TUBE TP SCH (13:45)
[2021-09-20] MEDS ORDERED: LORazepam 1 MG TABLET PO SCH (05:00)
[2021-09-21] MEDS ORDERED: LORazepam 0.5 MG TABLET PO PRN
[2021-09-21] MEDS ORDERED: LORazepam 0.5 MG TABLET PO SCH (05:00)
[2021-09-22] MEDS ORDERED: LORazepam 0.5 MG TABLET PO ONE (05:00)
== END 2021-09-19 15:38 | disposition left against medical advice (07) | DRG 177 ==
LOC: JER 22:18 → JERBED 09-19 01:59
PROVIDERS: ADMIT Hospitalist; ATTEND Internal Medicine
DX: U07.1 COVID-19 (principal); J96.01 Acute respiratory failure with hypoxia; J69.0 Pneumonitis due to inhalation of food and vomit; E87.0 Hyperosmolality and hypernatremia; I10 Essential (primary) hypertension; J44.9 Chronic obstructive pulmonary disease, unspecified; K21.9 Gastro-esophageal reflux disease without esophagitis; E78.5 Hyperlipidemia, unspecified; Z59.02 Unsheltered homelessness; M54.9 Dorsalgia, unspecified; I48.91 Unspecified atrial fibrillation; D64.9 Anemia, unspecified; F10.220 Alcohol dependence with intoxication, uncomplicated; E87.6 Hypokalemia; C45.9 Mesothelioma, unspecified; D50.9 Iron deficiency anemia, unspecified; I87.2 Venous insufficiency (chronic) (peripheral); B35.1 Tinea unguium; Z53.29 Procedure and treatment not carried out because of patient's decision for other reasons
CPT/HCPCS: 36415; 71045-TC-FY; 80048; 80053; 80307; 83735; 84100; 85025; 93005; 93010; 93970-TC; 99281-25; 99291; 99292; C9803-CS; J1100; U0003; U0005

== ENCOUNTER 2021-09-19 23:53 | Inpatient (IN) | payer OTHER ==
[2021-09-20 02:13] VITALS: TEMP 97.1; BMI 34.8
[2021-09-20 10:23] LABS: BASO % 0.7 % (0-2.0); EOS % 0.1 % (0-4.5); HEMATOCRIT 28.2 % (35.4-49); HEMOGLOBIN 8.8 GM/dL (11.7-16.9); LYMPH % 14.5 % (8-40); MCH 23.4 pg (25.7-33.7); MEAN CELL VOLUME 75.3 fl (80-96); MEAN PLT VOLUME 7.1 fl (7.5-11.1); MONO % 4.9 % (3.8-10.2); NEUT % 79.8 % (42.8-82.8); PLATELET COUNT 457 10^3/uL (134-434); RBC 3.75 M/mm3 (4.00-5.60); RDW 20.9 % (11.9-15.9); WHITE BLOOD COUNT 8.4 K/mm3 (4.0-10.0)
[2021-09-20 10:27] VITALS: BP 131/69; PULSE 97
[2021-09-20 10:43] LABS: ALBUMIN 2.8 g/dl (3.4-5.0); BLOOD UREA NITROGEN 8.6 mg/dL (7-18); CALCIUM 8.5 mg/dL (8.5-10.1)
[2021-09-20 10:47] LABS: CREATININE 0.6 mg/dL (0.55-1.3)
[2021-09-20 10:48] LABS: BILIRUBIN,TOTAL 0.2 mg/dL (0.2-1); TOT PROT 5.9 g/dl (6.4-8.2)
[2021-09-20] MEDS ORDERED: DEXAMETHASONE 4 MG TABLET (FP) PO SCH (13:30)
[2021-09-20] MEDS ORDERED: ALBUTEROL SO4 HFA INHALER IH PRN (13:39)
[2021-09-20] MEDS ORDERED: LORazepam 1 MG TABLET PO PRN (13:40)
[2021-09-20] MEDS ORDERED: AMPICILLIN NA/SULBACTAM NA 1.5 GM in SODIUM CHLORIDE 100 ML IVPB SCH (14:15)
[2021-09-20] MEDS ORDERED: LORazepam 2 MG TABLET PO SCH (17:00)
[2021-09-21] MEDS ORDERED: FOLIC ACID 1 MG TABLET (FP) PO SCH (10:00)
[2021-09-21] MEDS ORDERED: ENOXAPARIN NA (PORCINE) 40 MG/0.4 ML DISP.SYRIN SQ SCH (10:00)
[2021-09-22] MEDS ORDERED: LORazepam 1 MG TABLET PO SCH (05:00)
[2021-09-23] MEDS ORDERED: LORazepam 0.5 MG TABLET PO PRN
[2021-09-23] MEDS ORDERED: LORazepam 0.5 MG TABLET PO SCH (05:00)
[2021-09-24] MEDS ORDERED: LORazepam 0.5 MG TABLET PO ONE (05:00)
== END 2021-09-20 14:30 | disposition left against medical advice (07) | DRG 177 ==
LOC: JER 23:53 → JERBED 09-20 13:23 → OBSVTOIN 09-20 13:39
PROVIDERS: ADMIT Internal Medicine; ATTEND Internal Medicine
DX: U07.1 COVID-19 (principal); J12.82 Pneumonia due to coronavirus disease 2019; I10 Essential (primary) hypertension; J44.9 Chronic obstructive pulmonary disease, unspecified; I48.91 Unspecified atrial fibrillation; E78.5 Hyperlipidemia, unspecified; K21.9 Gastro-esophageal reflux disease without esophagitis; G89.29 Other chronic pain; M54.9 Dorsalgia, unspecified; R06.02 Shortness of breath; F10.20 Alcohol dependence, uncomplicated; J45.909 Unspecified asthma, uncomplicated; F17.200 Nicotine dependence, unspecified, uncomplicated
CPT/HCPCS: 36415; 71045-TC-FY; 80053; 85025; 93005; 93010; 99285-25; G0378

== ENCOUNTER 2021-09-20 22:48 | Emergency (ER) | payer OTHER ==
[2021-09-20 23:06] VITALS: BP 123/52; PULSE 100; TEMP 97; BMI 32.1
[2021-09-21] MEDS ORDERED: METHOCARBAMOL 500 MG TABLET PO ONE (06:07)
== END 2021-09-21 06:37 | disposition home or self-care (01) ==
LOC: JER 22:48
DX: S29.012A Strain of muscle and tendon of back wall of thorax, initial encounter (principal); Y99.9 Unspecified external cause status
CPT/HCPCS: 99283-25

== ENCOUNTER 2021-09-21 18:44 | Emergency (ER) | payer OTHER ==
[2021-09-21 19:42] VITALS: BP 127/68; PULSE 89; TEMP 97.6; BMI 35.4
== END 2021-09-21 23:42 | disposition left against medical advice (07) ==
LOC: JER 18:44
DX: F10.929 Alcohol use, unspecified with intoxication, unspecified (principal)
CPT/HCPCS: 99281-25

== ENCOUNTER 2021-09-22 03:15 | Emergency (ER) | payer OTHER ==
[2021-09-22 03:41] VITALS: BP 132/74; PULSE 88; TEMP 97.9; BMI 32.5
[2021-09-22] MEDS ORDERED: METHOCARBAMOL 500 MG TABLET PO ONE (05:43)
== END 2021-09-22 06:30 | disposition home or self-care (01) ==
LOC: JER 03:15
DX: M54.89 Other dorsalgia (principal)
CPT/HCPCS: 99283-25

== ENCOUNTER 2021-09-23 19:30 | Observation (INO) | payer OTHER ==
[2021-09-23 20:35] VITALS: BMI 29.5
[2021-09-24] MEDS ORDERED: ACETAMINOPHEN 500 MG TABLET (FP) PO ONE (04:04)
[2021-09-24 04:12] LABS: BASO % 0.6 % (0-2.0); EOS % 1.6 % (0-4.5); HEMATOCRIT 28.1 % (35.4-49); HEMOGLOBIN 8.9 GM/dL (11.7-16.9); LYMPH % 24.9 % (8-40); MCH 23.2 pg (25.7-33.7); MCHC 31.6 g/dl (32.0-35.9); MEAN CELL VOLUME 73.4 fl (80-96); MEAN PLT VOLUME 6.8 fl (7.5-11.1); MONO % 8.2 % (3.8-10.2); NEUT % 64.7 % (42.8-82.8); PLATELET COUNT 344 10^3/uL (134-434); RBC 3.82 M/mm3 (4.00-5.60); RDW 19.9 % (11.9-15.9); WHITE BLOOD COUNT 7.3 K/mm3 (4.0-10.0)
[2021-09-24] MEDS ORDERED: ACETAMINOPHEN 325 MG TABLET (FP) ONE (04:50)
[2021-09-24 05:43] LABS: CALCIUM 8.4 mg/dL (8.5-10.1)
[2021-09-24 05:44] LABS: ALBUMIN 2.8 g/dl (3.4-5.0); BLOOD UREA NITROGEN 9.2 mg/dL (7-18); MAGNESIUM 1.5 mg/dL (1.8-2.4)
[2021-09-24 05:47] LABS: CREATININE 0.6 mg/dL (0.55-1.3)
[2021-09-24 05:49] LABS: TOT PROT 6.2 g/dl (6.4-8.2)
[2021-09-24] MEDS ORDERED: MAGNESIUM SULF 50% (8.12 MEQ/2 ML-1 GM VIAL) IVPB ONE (07:23)
[2021-09-24] MEDS ORDERED: KETOROLAC TROMETHAMINE 30 MG/1 ML VIAL IVPUSH ONE (08:02)
[2021-09-24] MEDS ORDERED: PANTOPRAZOLE SODIUM 40 MG VIAL IVPUSH ONE (08:03)
[2021-09-24] MEDS ORDERED: FAMOTIDINE 20 MG/50 ML IVPB 20 MG/50 ML MG IVPB ONE (08:03)
[2021-09-24] MEDS ORDERED: MAG HYDROX/AL HYDROX/SIMETH 30 ML UNIT-DOSE CUP PO ONE (08:03)
[2021-09-24] MEDS ORDERED: MAGNESIUM SULFATE IN WATER 2 GM/50 ML IVPB IVPB ONE (08:56)
[2021-09-24] MEDS ORDERED: MAG HYDROX/AL HYDROX/SIMETH 30 ML UNIT-DOSE CUP ONE (12:53)
[2021-09-24] MEDS ORDERED: KETOROLAC TROMETHAMINE 30 MG/1 ML VIAL ONE (12:54)
[2021-09-24] MEDS ORDERED: PANTOPRAZOLE SODIUM 40 MG/100 ML BAG IVPB ONE (12:55)
[2021-09-24] MEDS ORDERED: POTASSIUM CHLORIDE TABS 20 MEQ TABLET.ER (FP) PO ONE ×2 (13:33→14:01)
[2021-09-24] MEDS ORDERED: SIMETHICONE 80 MG TAB.CHEW (FP) PO PRN (13:39)
[2021-09-24] MEDS ORDERED: ALBUTEROL SO4 HFA INHALER IH PRN (13:39)
[2021-09-24] MEDS ORDERED: FOLIC ACID 1 MG TABLET (FP) ONE (16:50)
[2021-09-24] MEDS ORDERED: THIAMINE HCL 100 MG TABLET (FP) ONE (16:50)
[2021-09-24] MEDS: THIAMINE HCL 100 MG TABLET (FP) PO SCH (17:25)
[2021-09-24] MEDS: FOLIC ACID 1 MG TABLET (FP) PO SCH (17:25)
[2021-09-25] MEDS ORDERED: FUROSEMIDE 40 MG TABLET (FP) PO SCH (10:00)
[2021-09-25] MEDS: THIAMINE HCL 100 MG TABLET (FP) PO SCH (10:05)
[2021-09-25] MEDS: FOLIC ACID 1 MG TABLET (FP) PO SCH (10:05)
[2021-09-25] MEDS: PANTOPRAZOLE 40 MG TABLET PO SCH (10:05)
[2021-09-25] MEDS: ENOXAPARIN NA (PORCINE) 40 MG/0.4 ML DISP.SYRIN SQ SCH (10:10)
[2021-09-25 10:13] LABS: BASO % 0.7 % (0-2.0); HEMATOCRIT 27.6 % (35.4-49); HEMOGLOBIN 8.7 GM/dL (11.7-16.9); LYMPH % 14.7 % (8-40); MCH 23.5 pg (25.7-33.7); MCHC 31.6 g/dl (32.0-35.9); MEAN CELL VOLUME 74.3 fl (80-96); MEAN PLT VOLUME 7.2 fl (7.5-11.1); MONO % 6.1 % (3.8-10.2); NEUT % 76.5 % (42.8-82.8); PLATELET COUNT 294 10^3/uL (134-434); RBC 3.71 M/mm3 (4.00-5.60); RDW 20.2 % (11.9-15.9); WHITE BLOOD COUNT 8.9 K/mm3 (4.0-10.0)
[2021-09-25 10:39] LABS: ALBUMIN 2.5 g/dl (3.4-5.0); BLOOD UREA NITROGEN 6.6 mg/dL (7-18); MAGNESIUM 1.7 mg/dL (1.8-2.4)
[2021-09-25 10:42] LABS: CREATININE 0.6 mg/dL (0.55-1.3); PHOSPHOROUS 2.9 mg/dL (2.5-4.9)
[2021-09-25 10:43] LABS: BILIRUBIN,TOTAL 0.9 mg/dL (0.2-1); TOT PROT 5.8 g/dl (6.4-8.2)
[2021-09-25] MEDS: IRON SUCROSE INJECTION 200 MG in SODIUM CHLORIDE 90 ML IVPB ONE ×2 (11:00→11:59)
[2021-09-25] MEDS ORDERED: FUROSEMIDE 40 MG/4 ML INJECTABLE VIAL IVPUSH SCH ×2 (14:00→14:04)
[2021-09-25] MEDS ORDERED: POTASSIUM CHLORIDE TABS 20 MEQ TABLET.ER (FP) PO ONE (14:45)
[2021-09-25] MEDS ORDERED: MAGNESIUM OXIDE 400 MG TABLET (FP) PO ONE (14:45)
[2021-09-26] MEDS ORDERED: POTASSIUM CHLORIDE TABS 20 MEQ TABLET.ER (FP) PO ONE (07:48)
[2021-09-26] MEDS ORDERED: MAGNESIUM OXIDE 400 MG TABLET (FP) PO ONE (07:48)
[2021-09-26] MEDS ORDERED: IRON SUCROSE INJECTION 200 MG in SODIUM CHLORIDE 90 ML IVPB ONE (07:55)
[2021-09-26] MEDS: PANTOPRAZOLE 40 MG TABLET PO SCH (10:56)
[2021-09-26] MEDS: THIAMINE HCL 100 MG TABLET (FP) PO SCH (10:56)
[2021-09-26] MEDS: FOLIC ACID 1 MG TABLET (FP) PO SCH (11:00)
[2021-09-26] MEDS: ENOXAPARIN NA (PORCINE) 40 MG/0.4 ML DISP.SYRIN SQ SCH (11:03)
[2021-09-26] MEDS ORDERED: LORazepam 1 MG TABLET PO PRN (12:47)
[2021-09-26] MEDS ORDERED: MAG HYDROX/AL HYDROX/SIMETH 30 ML UNIT-DOSE CUP PO PRN (12:47)
[2021-09-26 13:25] VITALS: BP 143/83; PULSE 104; TEMP 97.4
== END 2021-09-26 15:52 | disposition left against medical advice (07) ==
LOC: JER 19:30 → JERBED 09-24 10:24 → J4S 09-24 21:42
PROVIDERS: ADMIT Internal Medicine; ATTEND Internal Medicine
PROC: 3E033GC Introduction of Other Therapeutic Substance into Peripheral Vein, Percutaneous Approach (ICD-10-PCS; principal; 2021-09-24)
PROC: 3E0333Z Introduction of Anti-inflammatory into Peripheral Vein, Percutaneous Approach (ICD-10-PCS; 2021-09-24)
DX: U07.1 COVID-19 (principal); R06.02 Shortness of breath; R07.9 Chest pain, unspecified; F10.99 Alcohol use, unspecified with unspecified alcohol-induced disorder; E78.5 Hyperlipidemia, unspecified; I10 Essential (primary) hypertension; J44.9 Chronic obstructive pulmonary disease, unspecified; K21.9 Gastro-esophageal reflux disease without esophagitis; G89.29 Other chronic pain; R05.9 Cough, unspecified; E66.8 Other obesity; Z68.35 Body mass index [BMI] 35.0-35.9, adult; J30.2 Other seasonal allergic rhinitis; C45.7 Mesothelioma of other sites; Z91.013 Allergy to seafood; F17.210 Nicotine dependence, cigarettes, uncomplicated; R63.0 Anorexia; E87.6 Hypokalemia
CPT/HCPCS: 36415; 71045-TC-FY; 80053; 82607; 83540; 83550; 83735; 84100; 84484; 85025; 93005; 93010; 96365; 96367; 96375; 99285-25; C9803-CS; G0378; J1756; U0003; U0005

== ENCOUNTER 2021-09-27 21:58 | Emergency (ER) | payer OTHER ==
[2021-09-27 22:59] VITALS: BP 139/74; PULSE 85; TEMP 97.9; BMI 38.0
[2021-09-28] MEDS ORDERED: METHOCARBAMOL 500 MG TABLET PO ONE (00:49)
[2021-09-28] MEDS ORDERED: METHOCARBAMOL 500 MG TABLET ONE (02:07)
== END 2021-09-28 06:38 | disposition home or self-care (01) ==
LOC: JER 21:58
DX: M54.50 Low back pain, unspecified (principal)
CPT/HCPCS: 99283-25

== ENCOUNTER 2021-09-29 18:53 | Emergency (ER) | payer OTHER ==
[2021-09-29 19:25] VITALS: BP 121/79; PULSE 88; TEMP 98; BMI 35.9
== END 2021-09-30 06:05 | disposition left against medical advice (07) ==
LOC: JER 18:53
DX: F10.929 Alcohol use, unspecified with intoxication, unspecified (principal)
CPT/HCPCS: 99283-25

== ENCOUNTER 2021-10-04 19:59 | Emergency (ER) | payer OTHER ==
[2021-10-04 20:15] VITALS: BP 121/70; PULSE 102; TEMP 98.3; BMI 33.0
== END 2021-10-05 06:57 | disposition home or self-care (01) ==
LOC: JER 19:59
DX: M54.50 Low back pain, unspecified (principal); F10.929 Alcohol use, unspecified with intoxication, unspecified
CPT/HCPCS: 99283-25

== ENCOUNTER 2021-10-05 20:42 | Emergency (ER) | payer OTHER ==
[2021-10-05 20:53] VITALS: BP 108/70; PULSE 88; TEMP 97.9; BMI 23.3
[2021-10-05] MEDS ORDERED: IBUPROFEN 400 MG TABLET (FP) PO ONE (21:33)
== END 2021-10-06 05:49 | disposition home or self-care (01) ==
LOC: JER 20:42
DX: M54.50 Low back pain, unspecified (principal); F10.929 Alcohol use, unspecified with intoxication, unspecified
CPT/HCPCS: 99283-25

== ENCOUNTER 2021-10-09 19:57 | Inpatient (IN) | payer OTHER ==
[2021-10-10] MEDS ORDERED: PIPERACILLIN/TAZOB 4.5 GM 4.5 GM in DEXTROSE 5%-WATER 100 ML IVPB ONE (02:26)
[2021-10-10] MEDS ORDERED: VANCOMYCIN 1 GM in D5W (PRE-DOCKED) 1,000 MG/250 ML IVPB ONE (02:26)
[2021-10-10] MEDS ORDERED: ACETAMINOPHEN 1000 MG/100 ML BAG IVPB ONE (02:42)
[2021-10-10] MEDS ORDERED: ACETAMINOPHEN INJECTION 100 ML IVPB ONE (02:42)
[2021-10-10] MEDS ORDERED: VANCOMYCIN 1 GRAM (PRE-DOCKED) 1,000 MG/250 ML BAG IVPB ONE (02:43)
[2021-10-10] MEDS ORDERED: PIPERACILLIN/TAZOB 4.5 GM 4.5 GM/100 ML BAG IVPB ONE (02:43)
[2021-10-10 03:10] LABS: BASO % 0.7 % (0-2.0); EOS % 2.5 % (0-4.5); HEMOGLOBIN 10.1 GM/dL (11.7-16.9); LYMPH % 24.6 % (8-40); MCH 23.3 pg (25.7-33.7); MCHC 31.6 g/dl (32.0-35.9); MEAN CELL VOLUME 73.9 fl (80-96); MONO % 8.4 % (3.8-10.2); NEUT % 63.8 % (42.8-82.8); PLATELET COUNT 329 10^3/uL (134-434); RBC 4.33 M/mm3 (4.00-5.60); RDW 22.5 % (11.9-15.9); WHITE BLOOD COUNT 5.2 K/mm3 (4.0-10.0)
[2021-10-10 03:30] LABS: BLOOD UREA NITROGEN 5.1 mg/dL (7-18); CALCIUM 9.1 mg/dL (8.5-10.1); MAGNESIUM 1.5 mg/dL (1.8-2.4)
[2021-10-10] MEDS ORDERED: POTASSIUM CHLORIDE TABS 20 MEQ TABLET.ER (FP) PO ONE ×3 (03:30→13:44)
[2021-10-10 03:33] LABS: CREATININE 0.7 mg/dL (0.55-1.3)
[2021-10-10 03:35] LABS: BILIRUBIN,TOTAL 1.5 mg/dL (0.2-1); TOT PROT 7.9 g/dl (6.4-8.2)
[2021-10-10] MEDS ORDERED: POTASSIUM CHLORIDE ORAL LIQUID 20 MEQ/15 ML ONE (03:46)
[2021-10-10] MEDS ORDERED: MAGNESIUM 2GM/50ML STERILE WATER IVPB IVPB ONE ×2 (05:45→11:00)
[2021-10-10] MEDS ORDERED: VANCOMYCIN 1,000 MG in DEXTROSE 5%-WATER - 250 ML IVPB SCH (06:15)
[2021-10-10] MEDS ORDERED: MAGNESIUM SULFATE IN WATER 2 GM/50 ML IVPB IVPB ONE (06:29)
[2021-10-10] MEDS ORDERED: KETOROLAC TROMETHAMINE 15 MG/ML VIAL IVPUSH ONE (06:41)
[2021-10-10] MEDS ORDERED: chlordiazePOXIDE HCL 25 MG CAPSULE PO PRN ×2 (06:43→13:37)
[2021-10-10] MEDS ORDERED: SODIUM CHLORIDE 1,000 ML IV SCH (06:45)
[2021-10-10] MEDS: chlordiazePOXIDE HCL 25 MG CAPSULE PO SCH ×3 (06:56→23:36)
[2021-10-10] MEDS ORDERED: VANCOMYCIN 1 GRAM (PRE-DOCKED) 1,000 MG/250 ML BAG IVPB SCH (07:15)
[2021-10-10 07:23] LABS: ANISOCYTOSIS 1+; HOWELL-JOLLY BODIES 1+; MACROCYTOSIS 1+
[2021-10-10] MEDS ORDERED: FUROSEMIDE 40 MG/4 ML INJECTABLE VIAL IVPUSH SCH (10:15)
[2021-10-10 10:37] LABS: BASO % 0.8 % (0-2.0); HEMATOCRIT 28.4 % (35.4-49); HEMOGLOBIN 8.8 GM/dL (11.7-16.9); LYMPH % 21.8 % (8-40); MCH 23.2 pg (25.7-33.7); MEAN CELL VOLUME 74.8 fl (80-96); MEAN PLT VOLUME 7.1 fl (7.5-11.1); MONO % 9.2 % (3.8-10.2); NEUT % 64.2 % (42.8-82.8); PLATELET COUNT 259 10^3/uL (134-434); RDW 21.9 % (11.9-15.9)
[2021-10-10 11:38] LABS: ALBUMIN 2.9 g/dl (3.4-5.0); BILIRUBIN,TOTAL 1.7 mg/dL (0.2-1); BLOOD UREA NITROGEN 5.7 mg/dL (7-18); CALCIUM 8.3 mg/dL (8.5-10.1); CREATININE 0.6 mg/dL (0.55-1.3); MAGNESIUM 1.4 mg/dL (1.8-2.4); PHOSPHOROUS 3.3 mg/dL (2.5-4.9); TOT PROT 5.8 g/dl (6.4-8.2)
[2021-10-10] MEDS ORDERED: MAGNESIUM 1GM/D5W 100ML - 100 ML IVPB IVPB ONE (12:45)
[2021-10-10] MEDS ORDERED: FOLIC ACID 1 MG TABLET (FP) ONE (13:44)
[2021-10-10] MEDS ORDERED: MULTIVITAMINS (DAILY MVI) TABLET (FP) ONE (13:44)
[2021-10-10] MEDS ORDERED: THIAMINE HCL 100 MG TABLET (FP) ONE (13:44)
[2021-10-10] MEDS ORDERED: MAGNESIUM 1GM/D5W - 1 GM/100 ML IVPB IVPB ONE (13:45)
[2021-10-10] MEDS ORDERED: CEFTRIAXONE 1 GM/50 ML BAG ONE (13:45)
[2021-10-10] MEDS ORDERED: KCL 10 MEQ IVPB 20 MEQ/200 ML INFUS.BAG IVPB ONE (13:45)
[2021-10-10] MEDS: FOLIC ACID 1 MG TABLET (FP) PO SCH (14:24)
[2021-10-10] MEDS: THIAMINE HCL 100 MG TABLET (FP) PO SCH (14:25)
[2021-10-10] MEDS: CEFTRIAXONE 1 GM in DEXTROSE 5%-WATER - 50 ML IVPB SCH (14:25)
[2021-10-10] MEDS: ZINC OXIDE/PANTHENOL/VITAMIN E 56 GM TUBE TP SCH (14:25)
[2021-10-10] MEDS: MULTIVITAMINS (DAILY MVI) TABLET (FP) PO SCH (14:25)
[2021-10-10] MEDS: KCL 10 MEQ IVPB 10 MEQ/100 ML INFUS.BAG IVPB SCH ×2 (14:27→18:26)
[2021-10-10] MEDS ORDERED: MAG HYDROX/AL HYDROX/SIMETH 30 ML UNIT-DOSE CUP PO PRN (15:41)
[2021-10-10] MEDS ORDERED: chlordiazePOXIDE HCL 25 MG CAPSULE ONE (18:11)
[2021-10-10] MEDS ORDERED: FERROUS SO4 325 MG TABLET (FP) ONE (18:12)
[2021-10-10] MEDS: FERROUS SO4 325 MG TABLET (FP) PO SCH (18:27)
[2021-10-11 01:10] VITALS: BMI 36.1
[2021-10-11] MEDS ORDERED: VANCOMYCIN 1 GRAM (PRE-DOCKED) 1,000 MG/250 ML BAG IVPB SCH (03:00)
[2021-10-11] MEDS ORDERED: chlordiazePOXIDE HCL 25 MG CAPSULE PO SCH (05:00)
[2021-10-11] MEDS: chlordiazePOXIDE HCL 25 MG CAPSULE PO SCH ×5 (06:40→23:07)
[2021-10-11] MEDS: FUROSEMIDE 40 MG/4 ML INJECTABLE VIAL IVPUSH SCH (06:41)
[2021-10-11] MEDS ORDERED: FUROSEMIDE 40 MG/4 ML INJECTABLE VIAL IVPUSH ONE (09:00)
[2021-10-11] MEDS: FERROUS SO4 325 MG TABLET (FP) PO SCH ×4 (09:08→17:37)
[2021-10-11] MEDS ORDERED: DEXTROSE 5%-WATER - 50 ML IVPB ONE (09:16)
[2021-10-11] MEDS ORDERED: cefTRIAXone SODIUM 1 GM VIAL ONE (09:16)
[2021-10-11] MEDS: CEFTRIAXONE 1 GM in DEXTROSE 5%-WATER - 50 ML IVPB SCH (09:19)
[2021-10-11] MEDS ORDERED: ACETAMINOPHEN 325 MG TABLET (FP) PO PRN (09:22)
[2021-10-11] MEDS: FOLIC ACID 1 MG TABLET (FP) PO SCH (09:28)
[2021-10-11] MEDS: MULTIVITAMINS (DAILY MVI) TABLET (FP) PO SCH (09:29)
[2021-10-11] MEDS: THIAMINE HCL 100 MG TABLET (FP) PO SCH (09:29)
[2021-10-11] MEDS ORDERED: POTASSIUM CHLORIDE TABS 20 MEQ TABLET.ER (FP) PO ONE (09:42)
[2021-10-11] MEDS ORDERED: MAGNESIUM OXIDE 400 MG TABLET (FP) PO ONE (10:15)
[2021-10-11] MEDS: CEPHALEXIN MONOHYDRATE 500 MG CAPSULE (UD) PO SCH ×2 (18:03→23:07)
[2021-10-11] MEDS: ZINC OXIDE/PANTHENOL/VITAMIN E 56 GM TUBE TP SCH (18:46)
[2021-10-12] MEDS ORDERED: chlordiazePOXIDE HCL 10 MG CAPSULE PO PRN
[2021-10-12] MEDS ORDERED: VANCOMYCIN 1 GRAM (PRE-DOCKED) 1,000 MG/250 ML BAG IVPB SCH (03:00)
[2021-10-12] MEDS: CEPHALEXIN MONOHYDRATE 500 MG CAPSULE (UD) PO SCH ×5 (03:33→23:29)
[2021-10-12] MEDS ORDERED: chlordiazePOXIDE HCL 10 MG CAPSULE PO SCH (05:00)
[2021-10-12] MEDS: chlordiazePOXIDE HCL 25 MG CAPSULE PO SCH ×4 (06:18→23:29)
[2021-10-12] MEDS: FUROSEMIDE 40 MG/4 ML INJECTABLE VIAL IVPUSH SCH (06:21)
[2021-10-12] MEDS: FOLIC ACID 1 MG TABLET (FP) PO SCH (11:30)
[2021-10-12] MEDS: MULTIVITAMINS (DAILY MVI) TABLET (FP) PO SCH (11:30)
[2021-10-12] MEDS: THIAMINE HCL 100 MG TABLET (FP) PO SCH (11:30)
[2021-10-12] MEDS: ZINC OXIDE/PANTHENOL/VITAMIN E 56 GM TUBE TP SCH (11:31)
[2021-10-12] MEDS: FERROUS SO4 325 MG TABLET (FP) PO SCH ×2 (11:31→17:20)
[2021-10-13] MEDS ORDERED: chlordiazePOXIDE HCL 10 MG CAPSULE PO PRN
[2021-10-13] MEDS ORDERED: chlordiazePOXIDE HCL 10 MG CAPSULE PO SCH (05:00)
[2021-10-13] MEDS: CEPHALEXIN MONOHYDRATE 500 MG CAPSULE (UD) PO SCH ×3 (05:28→18:08)
[2021-10-13] MEDS: chlordiazePOXIDE HCL 10 MG CAPSULE PO SCH ×4 (05:29→22:14)
[2021-10-13] MEDS: FUROSEMIDE 40 MG/4 ML INJECTABLE VIAL IVPUSH SCH (06:10)
[2021-10-13] MEDS: ZINC OXIDE/PANTHENOL/VITAMIN E 56 GM TUBE TP SCH (10:15)
[2021-10-13] MEDS: FOLIC ACID 1 MG TABLET (FP) PO SCH (10:15)
[2021-10-13] MEDS: FERROUS SO4 325 MG TABLET (FP) PO SCH ×3 (10:15→18:08)
[2021-10-13] MEDS: THIAMINE HCL 100 MG TABLET (FP) PO SCH (10:15)
[2021-10-13] MEDS: MULTIVITAMINS (DAILY MVI) TABLET (FP) PO SCH (10:15)
[2021-10-13] MEDS: amLODIPine BESYLATE 10 MG TABLET (FP) PO SCH (17:05)
[2021-10-14] MEDS ORDERED: chlordiazePOXIDE HCL 10 MG CAPSULE PO SCH (05:00)
[2021-10-14] MEDS ORDERED: chlordiazePOXIDE HCL 10 MG CAPSULE PO ONE (05:00)
[2021-10-14 05:59] VITALS: BP 128/66; PULSE 80; TEMP 98.8
[2021-10-14] MEDS: CEPHALEXIN MONOHYDRATE 500 MG CAPSULE (UD) PO SCH ×2 (06:21)
[2021-10-14] MEDS: FUROSEMIDE 40 MG/4 ML INJECTABLE VIAL IVPUSH SCH (06:22)
[2021-10-14 09:19] LABS: BLOOD UREA NITROGEN 5.9 mg/dL (7-18)
[2021-10-14 09:20] LABS: CALCIUM 8.5 mg/dL (8.5-10.1)
[2021-10-14 09:21] LABS: MAGNESIUM 1.6 mg/dL (1.8-2.4)
[2021-10-14 09:22] LABS: CREATININE 0.5 mg/dL (0.55-1.3); PHOSPHOROUS 3.3 mg/dL (2.5-4.9)
[2021-10-14] MEDS: FOLIC ACID 1 MG TABLET (FP) PO SCH (11:38)
[2021-10-14] MEDS: ZINC OXIDE/PANTHENOL/VITAMIN E 56 GM TUBE TP SCH (11:38)
[2021-10-14] MEDS: MULTIVITAMINS (DAILY MVI) TABLET (FP) PO SCH (11:38)
[2021-10-14] MEDS: amLODIPine BESYLATE 10 MG TABLET (FP) PO SCH (11:38)
[2021-10-14] MEDS: THIAMINE HCL 100 MG TABLET (FP) PO SCH (11:38)
[2021-10-14] MEDS: FERROUS SO4 325 MG TABLET (FP) PO SCH (11:39)
[2021-10-15] MEDS ORDERED: chlordiazePOXIDE HCL 10 MG CAPSULE PO ONE (05:00)
== END 2021-10-14 11:45 | disposition left against medical advice (07) | DRG 603 ==
LOC: JER 19:57 → JERBED 10-10 03:32 → J7W 10-10 21:42
PROVIDERS: ADMIT Hospitalist; ATTEND Internal Medicine
DX: L03.116 Cellulitis of left lower limb (principal); L03.115 Cellulitis of right lower limb; F10.129 Alcohol abuse with intoxication, unspecified; E87.6 Hypokalemia; E83.42 Hypomagnesemia; I10 Essential (primary) hypertension; E78.5 Hyperlipidemia, unspecified; J44.9 Chronic obstructive pulmonary disease, unspecified; K21.9 Gastro-esophageal reflux disease without esophagitis; M54.89 Other dorsalgia; R29.6 Repeated falls; Z86.018 Personal history of other benign neoplasm
CPT/HCPCS: 36415; 70450-TC; 71045-TC-FY; 72125-TC; 73630-TC-LT; 80048; 80053; 80307; 83735; 84100; 85025; 87040; 93005; 93010; 99283-25; 99285-25; C9803-CS; U0003; U0005

== ENCOUNTER 2021-10-14 17:56 | Emergency (ER) | payer OTHER ==
[2021-10-14 18:18] VITALS: BP 110/62; PULSE 106; TEMP 98.9; BMI 34.9
[2021-10-15] MEDS ORDERED: IBUPROFEN 600 MG TABLET (FP) PO ONE ×2 (01:41→01:45)
== END 2021-10-15 05:51 | disposition home or self-care (01) ==
LOC: JER 17:56
DX: M54.50 Low back pain, unspecified (principal); F10.929 Alcohol use, unspecified with intoxication, unspecified
CPT/HCPCS: 99283-25

== ENCOUNTER 2021-10-15 19:44 | Emergency (ER) | payer OTHER ==
[2021-10-15 19:50] VITALS: BMI 36.5
[2021-10-16 05:20] VITALS: BP 131/65; PULSE 89; TEMP 97.8
== END 2021-10-16 05:38 | disposition home or self-care (01) ==
LOC: JER 19:44
DX: M54.89 Other dorsalgia (principal); G89.29 Other chronic pain; Z59.00 Homelessness unspecified
CPT/HCPCS: 99282-25

== ENCOUNTER 2021-10-17 21:03 | Emergency (ER) | payer OTHER ==
[2021-10-17 21:25] VITALS: BP 109/64; PULSE 95; TEMP 97.8; BMI 22.8
[2021-10-18] MEDS ORDERED: IBUPROFEN 200 MG TABLET PO ONE (03:53)
[2021-10-18] MEDS ORDERED: IBUPROFEN 600 MG TABLET (FP) PO ONE ×2 (05:21→05:26)
== END 2021-10-18 05:45 | disposition home or self-care (01) ==
LOC: JER 21:03
DX: M54.89 Other dorsalgia (principal)
CPT/HCPCS: 99283-25

== ENCOUNTER 2021-10-18 15:55 | Emergency (ER) | payer OTHER ==
[2021-10-18 16:11] VITALS: BP 110/62; PULSE 82; TEMP 98.7; BMI 33.5
== END 2021-10-18 18:45 | disposition left against medical advice (07) ==
LOC: JER 15:55
DX: F10.929 Alcohol use, unspecified with intoxication, unspecified (principal)

== ENCOUNTER 2021-10-18 22:42 | Emergency (ER) | payer OTHER ==
[2021-10-18 22:59] VITALS: TEMP 97; BMI 36.0
[2021-10-19] MEDS ORDERED: METHOCARBAMOL 500 MG TABLET PO ONE (04:46)
[2021-10-19] MEDS ORDERED: METHOCARBAMOL 500 MG TABLET ONE (04:56)
[2021-10-19 06:28] VITALS: BP 139/71; PULSE 90
== END 2021-10-19 07:05 | disposition home or self-care (01) ==
LOC: JER 22:42
DX: M54.50 Low back pain, unspecified (principal); F10.20 Alcohol dependence, uncomplicated
CPT/HCPCS: 99283-25

== ENCOUNTER 2021-10-19 21:18 | Emergency (ER) | payer OTHER ==
[2021-10-19 21:27] VITALS: BP 135/84; PULSE 98; TEMP 97.6; BMI 45.6
== END 2021-10-20 06:33 | disposition home or self-care (01) ==
LOC: JER 21:18
DX: F10.920 Alcohol use, unspecified with intoxication, uncomplicated (principal); R51.9 Headache, unspecified
CPT/HCPCS: 99281-25

== ENCOUNTER 2021-10-21 19:18 | Emergency (ER) | payer OTHER ==
[2021-10-21 19:44] VITALS: BP 120/43; PULSE 102; TEMP 97.3; BMI 27.3
== END 2021-10-21 21:00 | disposition left against medical advice (07) ==
LOC: JER 19:18
DX: M54.50 Low back pain, unspecified (principal)
CPT/HCPCS: 99281-25

== ENCOUNTER 2021-10-22 03:14 | Emergency (ER) | payer OTHER ==
[2021-10-22 03:22] VITALS: BP 134/72; PULSE 92; TEMP 98.8; BMI 27.3
[2021-10-22] MEDS ORDERED: ACETAMINOPHEN 325 MG TABLET (FP) PO ONE (03:33)
[2021-10-22] MEDS ORDERED: ACETAMINOPHEN 325 MG TABLET (FP) ONE (03:45)
== END 2021-10-22 06:30 | disposition home or self-care (01) ==
LOC: JER 03:14
DX: M25.561 Pain in right knee (principal)
CPT/HCPCS: 73560-TC-RT-FY; 99283-25

== ENCOUNTER 2021-10-23 20:44 | Emergency (ER) | payer OTHER ==
[2021-10-23 20:59] VITALS: BMI 25.8
[2021-10-24 06:10] VITALS: BP 124/78; PULSE 86; TEMP 98.1
== END 2021-10-24 06:10 | disposition home or self-care (01) ==
LOC: JER 20:44
DX: Z59.00 Homelessness unspecified (principal)
CPT/HCPCS: 99281-25

== ENCOUNTER 2021-10-24 20:51 | Emergency (ER) | payer OTHER ==
[2021-10-24 21:15] VITALS: BP 130/73; PULSE 90; TEMP 98.3; BMI 25.8
[2021-10-24] MEDS ORDERED: ACETAMINOPHEN 325 MG TABLET (FP) PO ONE (21:35)
[2021-10-25] MEDS ORDERED: ACETAMINOPHEN 325 MG TABLET (FP) ONE (05:49)
== END 2021-10-25 06:09 | disposition home or self-care (01) ==
LOC: JER 20:51
DX: F10.920 Alcohol use, unspecified with intoxication, uncomplicated (principal)
CPT/HCPCS: 99283-25

== ENCOUNTER 2021-10-26 21:03 | Emergency (ER) | payer OTHER ==
[2021-10-26 21:23] VITALS: BP 101/59; PULSE 99; TEMP 95; BMI 33.4
== END 2021-10-27 06:07 | disposition home or self-care (01) ==
LOC: JER 21:03
DX: Z59.00 Homelessness unspecified (principal)
CPT/HCPCS: 99281-25

== ENCOUNTER 2021-10-28 03:41 | Emergency (ER) | payer OTHER ==
[2021-10-28 04:22] VITALS: TEMP 97.6; BMI 36.5
[2021-10-28 11:44] VITALS: BP 149/92; PULSE 64
== END 2021-10-28 11:44 | disposition home or self-care (01) ==
LOC: JER 03:41
DX: F10.929 Alcohol use, unspecified with intoxication, unspecified (principal)
CPT/HCPCS: 70450-TC; 72125-TC; 99284-25

== ENCOUNTER → 2021-10-29 | Emergency (ER) | payer OTHER ==
[~2021-10-29] MED LIST changes: -DEXAMETHASONE SOD PHOSPHATE 10 MG/1 ML VIAL ONE; +FOLIC ACID 1 MG TABLET (FP) ONE; +MAGNESIUM SULFATE IN WATER 2 GM/50 ML IVPB IVPB ONE; +PANTOPRAZOLE SODIUM 40 MG VIAL ONE; -PIPERACILLIN/TAZOB 3.375 GM 3.375 GM/50 ML BAG IVPB ONE; +POTASSIUM CHLORIDE ORAL LIQUID 20 MEQ/15 ML ONE; +POTASSIUM CHLORIDE TABS 20 MEQ TABLET.ER (FP) PO ONE; +THIAMINE HCL 200 MG/2 ML VIAL ONE; -VANCOMYCIN 1 GRAM (PRE-DOCKED) 1,000 MG/250 ML BAG IVPB ONE; +chlordiazePOXIDE HCL 25 MG CAPSULE ONE; +diazePAM 5 MG TABLET ONE
[2021-10-29 22:18] VITALS: BMI 32.8
[2021-10-30 05:32] VITALS: BP 126/73; PULSE 89; TEMP 97.3
== END | disposition home or self-care (01) ==
LOC: JER 22:03
DX: Z59.00 Homelessness unspecified (principal)
CPT/HCPCS: 99283-25; 99284-25

== ENCOUNTER 2021-11-01 19:55 | Emergency (ER) | payer OTHER ==
[2021-11-01 20:01] VITALS: BP 119/68; PULSE 92; TEMP 97; BMI 36.0
== END 2021-11-02 06:49 | disposition home or self-care (01) ==
LOC: JER 19:55
DX: Z59.48 Other specified lack of adequate food (principal)
CPT/HCPCS: 99281-25

== ENCOUNTER 2021-11-03 13:07 | Observation (INO) | payer OTHER ==
[2021-11-03 13:25] VITALS: BMI 36.0
[2021-11-03] MEDS ORDERED: diazePAM 5 MG TABLET PO ONE (14:46)
[2021-11-03] MEDS ORDERED: LACTATED RINGERS SOLUTION 1000 ML INFUS.BAG IV ONE (14:54)
[2021-11-03 16:18] LABS: BASO % 0.5 % (0-2.0); EOS % 2.6 % (0-4.5); HEMATOCRIT 29.6 % (35.4-49); LYMPH % 18.7 % (8-40); MCH 22.4 pg (25.7-33.7); MCHC 30.3 g/dl (32.0-35.9); MEAN CELL VOLUME 73.9 fl (80-96); MEAN PLT VOLUME 7.5 fl (7.5-11.1); MONO % 7.8 % (3.8-10.2); NEUT % 70.4 % (42.8-82.8); PLATELET COUNT 229 10^3/uL (134-434); RBC 4.01 M/mm3 (4.00-5.60); RDW 22.8 % (11.9-15.9); WHITE BLOOD COUNT 6.3 K/mm3 (4.0-10.0)
[2021-11-03 16:28] LABS: ALBUMIN 3.2 g/dl (3.4-5.0); BLOOD UREA NITROGEN 5.7 mg/dL (7-18); CALCIUM 8.4 mg/dL (8.5-10.1); MAGNESIUM 1.6 mg/dL (1.8-2.4)
[2021-11-03 16:32] LABS: CREATININE 0.6 mg/dL (0.55-1.3)
[2021-11-03 16:33] LABS: BILIRUBIN,TOTAL 0.7 mg/dL (0.2-1); TOT PROT 6.6 g/dl (6.4-8.2)
[2021-11-03] MEDS ORDERED: POTASSIUM CHLORIDE TABS 20 MEQ TABLET.ER (FP) PO ONE (16:33)
[2021-11-03] MEDS ORDERED: MAGNESIUM OXIDE 400 MG TABLET (FP) PO ONE (16:34)
[2021-11-03 17:03] LABS: ANISOCYTOSIS 2+
[2021-11-03] MEDS ORDERED: chlordiazePOXIDE HCL 25 MG CAPSULE PO ONE (17:40)
[2021-11-03] MEDS ORDERED: LORazepam 2 MG/ML SDV VIAL IVPUSH PRN (17:54)
[2021-11-03] MEDS ORDERED: D5-1/2NS+10 MEQ KCL - 10 MEQ/1,000 ML INFUS.BAG IV SCH (18:00)
[2021-11-03] MEDS ORDERED: ACETAMINOPHEN 1000 MG/100 ML BAG IVPB ONE (18:47)
[2021-11-03] MEDS ORDERED: ACETAMINOPHEN INJECTION 100 ML IVPB ONE (18:48)
[2021-11-03] MEDS: THIAMINE HCL 200 MG/2 ML VIAL IVPB SCH (19:20)
[2021-11-04 01:50] VITALS: TEMP 97.9
[2021-11-04 04:56] VITALS: BP 140/80; PULSE 82
[2021-11-04 07:38] LABS: WHITE BLOOD COUNT 7.3 K/mm3 (4.0-10.0)
[2021-11-04 07:39] LABS: BASO % 0.3 % (0-2.0); EOS % 2.6 % (0-4.5); HEMATOCRIT 29.9 % (35.4-49); HEMOGLOBIN 9.2 GM/dL (11.7-16.9); LYMPH % 12.6 % (8-40); MCH 22.8 pg (25.7-33.7); MCHC 30.9 g/dl (32.0-35.9); MEAN CELL VOLUME 73.9 fl (80-96); MEAN PLT VOLUME 7.5 fl (7.5-11.1); MONO % 8.1 % (3.8-10.2); NEUT % 76.4 % (42.8-82.8); PLATELET COUNT 222 10^3/uL (134-434); RBC 4.04 M/mm3 (4.00-5.60); RDW 23.1 % (11.9-15.9)
[2021-11-04] MEDS ORDERED: chlordiazePOXIDE HCL 25 MG CAPSULE ONE (07:56)
[2021-11-04] MEDS: chlordiazePOXIDE HCL 25 MG CAPSULE PO PRN ×2 (08:02→14:00)
[2021-11-04 08:19] LABS: BLOOD UREA NITROGEN 6.3 mg/dL (7-18); CREATININE 0.5 mg/dL (0.55-1.3)
[2021-11-04 08:20] LABS: ALBUMIN 2.9 g/dl (3.4-5.0); BILIRUBIN,TOTAL 1.3 mg/dL (0.2-1); CALCIUM 8.2 mg/dL (8.5-10.1); MAGNESIUM 1.4 mg/dL (1.8-2.4)
[2021-11-04] MEDS ORDERED: MAGNESIUM 2GM/50ML STERILE WATER IVPB IVPB ONE (09:30)
[2021-11-04] MEDS ORDERED: POTASSIUM CHLORIDE ORAL LIQUID 20 MEQ/15 ML PO ONE (10:00)
[2021-11-04] MEDS ORDERED: PANTOPRAZOLE SODIUM 40 MG VIAL IVPUSH SCH (10:00)
[2021-11-04] MEDS: THIAMINE HCL 200 MG/2 ML VIAL IVPB SCH (11:00)
[2021-11-04 13:15] LABS: PHOSPHOROUS 2.7 mg/dL (2.5-4.9)
[2021-11-04] MEDS ORDERED: FOLIC ACID 1 MG TABLET (FP) PO SCH (14:00)
[2021-11-04] MEDS ORDERED: FOLIC ACID INJECTION - 1 MG, THIAMINE HCL 100 MG, MULTIVIT INJECTION ADULT 10 ML in SOD... IVPB ONE (15:00)
== END 2021-11-04 16:38 | disposition left against medical advice (07) ==
LOC: JER 13:07 → JERBED 17:39 → UNDOADMOB 17:39 → INTOOBSV 17:51 → OBSVTOIN 17:51 → JERBED 11-04 11:36
PROVIDERS: ADMIT Internal Medicine; ATTEND Internal Medicine
PROC: 3E033NZ Introduction of Analgesics, Hypnotics, Sedatives into Peripheral Vein, Percutaneous Approach (ICD-10-PCS; principal; 2021-11-04)
PROC: 3E0337Z Introduction of Electrolytic and Water Balance Substance into Peripheral Vein, Percutaneous Approach (ICD-10-PCS; 2021-11-04)
DX: J44.9 Chronic obstructive pulmonary disease, unspecified (principal); C45.7 Mesothelioma of other sites; K21.9 Gastro-esophageal reflux disease without esophagitis; F10.10 Alcohol abuse, uncomplicated; I10 Essential (primary) hypertension; R07.9 Chest pain, unspecified; G89.29 Other chronic pain; R55 Syncope and collapse; Z59.00 Homelessness unspecified; M48.50XA Collapsed vertebra, not elsewhere classified, site unspecified, initial encounter for fracture; K74.69 Other cirrhosis of liver; M19.90 Unspecified osteoarthritis, unspecified site; Z91.013 Allergy to seafood; F41.9 Anxiety disorder, unspecified; R42 Dizziness and giddiness; F17.210 Nicotine dependence, cigarettes, uncomplicated; Z29.8 Encounter for other specified prophylactic measures; D64.9 Anemia, unspecified; E87.6 Hypokalemia
CPT/HCPCS: 0241U-QW; 36415; 80053; 82550; 83605; 83690; 83735; 84100; 84484; 85025; 93005; 93010; 96374; 96375; 99285-25; G0378

== ENCOUNTER 2021-11-05 15:32 | Emergency (ER) | payer OTHER ==
[2021-11-05 15:40] VITALS: BP 101/66; PULSE 95; TEMP 98; BMI 38.2
== END 2021-11-06 05:49 ==
LOC: JER 15:32
DX: M54.50 Low back pain, unspecified (principal); Z59.00 Homelessness unspecified
CPT/HCPCS: 99281-25

== ENCOUNTER 2021-11-08 23:25 | Emergency (ER) | payer OTHER ==
[2021-11-08 23:29] VITALS: BP 133/76; PULSE 100; TEMP 97; BMI 33.0
[2021-11-09] MEDS ORDERED: METHOCARBAMOL 500 MG TABLET PO ONE (02:36)
[2021-11-09] MEDS ORDERED: METHOCARBAMOL 500 MG TABLET ONE (04:17)
== END 2021-11-09 05:26 | disposition home or self-care (01) ==
LOC: JER 23:25
DX: F10.929 Alcohol use, unspecified with intoxication, unspecified (principal)
CPT/HCPCS: 99283-25

== ENCOUNTER → 2021-11-08 | Emergency (ER) | payer OTHER ==
[2021-11-08 13:01] VITALS: BP 111/63; PULSE 106; TEMP 98; BMI 41.5
== END | disposition left against medical advice (07) ==
LOC: JER 12:46
DX: E86.0 Dehydration (principal)
CPT/HCPCS: 99283-25

== ENCOUNTER 2021-11-09 23:38 | Emergency (ER) | payer OTHER ==
[2021-11-10 05:21] VITALS: BP 123/71; PULSE 91; TEMP 97.6; BMI 33.0
== END 2021-11-10 06:18 | disposition home or self-care (01) ==
LOC: JER 23:38
DX: F10.920 Alcohol use, unspecified with intoxication, uncomplicated (principal)
CPT/HCPCS: 99283-25

== ENCOUNTER 2021-11-10 22:37 | Emergency (ER) | payer OTHER ==
[2021-11-10 22:51] VITALS: BP 159/92; PULSE 94; TEMP 98; BMI 34.4
== END 2021-11-11 06:16 | disposition home or self-care (01) ==
LOC: JER 22:37
DX: F10.239 Alcohol dependence with withdrawal, unspecified (principal)
CPT/HCPCS: 82962; 99283-25

== ENCOUNTER 2021-11-11 18:41 | Emergency (ER) | payer OTHER ==
[2021-11-11 19:04] VITALS: BMI 30.1
[2021-11-12 01:08] VITALS: BP 131/78; PULSE 89; TEMP 98.1
== END 2021-11-12 05:54 | disposition home or self-care (01) ==
LOC: JER 18:41
DX: M54.89 Other dorsalgia (principal); Z59.00 Homelessness unspecified
CPT/HCPCS: 93005; 93010; 99283-25

== ENCOUNTER 2021-11-12 18:28 | Emergency (ER) | payer OTHER ==
[2021-11-12 19:12] VITALS: BP 109/62; PULSE 96; TEMP 98.6; BMI 30.1
== END 2021-11-12 21:17 | disposition left against medical advice (07) ==
LOC: JER 18:28
DX: F10.129 Alcohol abuse with intoxication, unspecified (principal)
CPT/HCPCS: 99281-25

== ENCOUNTER 2021-11-13 00:16 | Emergency (ER) | payer OTHER ==
[2021-11-13 01:13] VITALS: BP 102/66; PULSE 90; TEMP 98.6; BMI 30.1
== END 2021-11-13 05:25 | disposition home or self-care (01) ==
LOC: JER 00:16
DX: M54.89 Other dorsalgia (principal); Z59.00 Homelessness unspecified
CPT/HCPCS: 99283-25

== ENCOUNTER 2021-11-15 16:36 | Emergency (ER) | payer OTHER ==
[2021-11-15 17:12] VITALS: TEMP 98.9; BMI 33.0
[2021-11-15] MEDS ORDERED: LIDOCAINE 5% TOPICAL PATCH TP ONE (18:00)
[2021-11-15] MEDS ORDERED: ACETAMINOPHEN 500 MG TABLET (FP) PO ONE (18:00)
[2021-11-15] MEDS ORDERED: METHOCARBAMOL 500 MG TABLET PO ONE (18:00)
[2021-11-15] MEDS ORDERED: chlordiazePOXIDE HCL 25 MG CAPSULE PO ONE (19:32)
[2021-11-15] MEDS ORDERED: chlordiazePOXIDE HCL 25 MG CAPSULE ONE (19:33)
[2021-11-15] MEDS ORDERED: METHOCARBAMOL 500 MG TABLET ONE (19:33)
[2021-11-15] MEDS ORDERED: ACETAMINOPHEN 325 MG TABLET (FP) ONE (19:34)
[2021-11-15] MEDS ORDERED: LIDOCAINE PATCH REMOVAL MC SCH (22:00)
[2021-11-16 05:38] VITALS: BP 164/87; PULSE 94
== END 2021-11-16 06:09 | disposition home or self-care (01) ==
LOC: JER 16:36
DX: M54.50 Low back pain, unspecified (principal)
CPT/HCPCS: 99283-25

== ENCOUNTER 2021-11-16 15:36 | Emergency (ER) | payer OTHER ==
[2021-11-16 16:01] VITALS: TEMP 98.9; BMI 38.7
[2021-11-16] MEDS ORDERED: IBUPROFEN 600 MG TABLET (FP) PO ONE ×2 (17:21→17:42)
[2021-11-16] MEDS ORDERED: DEXAMETHASONE LIQUID 0.5 MG/5 ML PO ONE (17:28)
[2021-11-16] MEDS ORDERED: DEXAMETHASONE SOD PHOSPHATE 10 MG/1 ML VIAL ONE (17:42)
[2021-11-16 20:55] VITALS: BP 144/81; PULSE 99
== END 2021-11-16 21:26 | disposition home or self-care (01) ==
LOC: JER 15:36
DX: J43.9 Emphysema, unspecified (principal); F10.920 Alcohol use, unspecified with intoxication, uncomplicated; M54.50 Low back pain, unspecified
CPT/HCPCS: 99283-25

== ENCOUNTER 2021-11-17 19:21 | Emergency (ER) | payer OTHER ==
[2021-11-17 19:42] VITALS: BMI 35.9
[2021-11-18 05:36] VITALS: BP 124/79; PULSE 95; TEMP 98.8
== END 2021-11-18 06:34 | disposition home or self-care (01) ==
LOC: JER 19:21
DX: F10.129 Alcohol abuse with intoxication, unspecified (principal)
CPT/HCPCS: 99281-25

== ENCOUNTER 2021-11-27 17:04 | Emergency (ER) | payer OTHER ==
[2021-11-27 17:16] VITALS: BP 109/60; TEMP 98.9; BMI 30.1
[2021-11-27 18:40] VITALS: PULSE 91
[2021-11-27 22:04] LABS: EOS % 3.2 % (0-4.5); HEMATOCRIT 31.3 % (35.4-49); HEMOGLOBIN 9.5 GM/dL (11.7-16.9); LYMPH % 26.9 % (8-40); MCH 22.4 pg (25.7-33.7); MCHC 30.3 g/dl (32.0-35.9); MEAN CELL VOLUME 74.1 fl (80-96); MEAN PLT VOLUME 7.2 fl (7.5-11.1); MONO % 9.8 % (3.8-10.2); NEUT % 59.1 % (42.8-82.8); PLATELET COUNT 371 10^3/uL (134-434); RBC 4.23 M/mm3 (4.00-5.60); RDW 23.8 % (11.9-15.9)
[2021-11-27 22:27] LABS: ALBUMIN 3.3 g/dl (3.4-5.0); BLOOD UREA NITROGEN 15.9 mg/dL (7-18); CALCIUM 8.8 mg/dL (8.5-10.1)
[2021-11-27 22:30] LABS: CREATININE 0.7 mg/dL (0.55-1.3)
[2021-11-27 22:32] LABS: BILIRUBIN,TOTAL 0.2 mg/dL (0.2-1); TOT PROT 6.7 g/dl (6.4-8.2)
[2021-11-27 22:36] LABS: ANISOCYTOSIS 3+; MACROCYTOSIS 0; OVALOCYTE 1+; TARGET CELLS 1+
== END 2021-11-27 23:54 | disposition home or self-care (01) ==
LOC: JER 17:04
DX: F10.129 Alcohol abuse with intoxication, unspecified (principal)
CPT/HCPCS: 36415; 71046-TC-FY; 80053; 85025; 93005; 93010; 99285-25

== ENCOUNTER 2021-11-28 21:07 | Emergency (ER) | payer OTHER ==
[2021-11-28 22:06] VITALS: BP 110/72; PULSE 82; TEMP 98.6; BMI 28.7
[2021-11-29] MEDS ORDERED: IBUPROFEN 400 MG TABLET (FP) PO ONE ×2 (05:16→05:21)
== END 2021-11-29 06:00 | disposition home or self-care (01) ==
LOC: JER 21:07
DX: M54.89 Other dorsalgia (principal)
CPT/HCPCS: 99283-25

== ENCOUNTER 2021-11-29 22:51 | Emergency (ER) | payer OTHER ==
[2021-11-29 23:03] VITALS: BMI 33.0
[2021-11-30 06:19] VITALS: BP 100/71; PULSE 65; TEMP 98.1
== END 2021-11-30 04:00 | disposition home or self-care (01) ==
LOC: JER 22:51
DX: Z59.02 Unsheltered homelessness (principal)
CPT/HCPCS: 99281-25

== ENCOUNTER 2021-12-01 20:07 | Emergency (ER) | payer OTHER ==
[2021-12-01 20:20] VITALS: BP 116/75; PULSE 88; TEMP 98.1; BMI 33.0
== END 2021-12-02 05:41 | disposition home or self-care (01) ==
LOC: JER 20:07
DX: F19.90 Other psychoactive substance use, unspecified, uncomplicated (principal)
CPT/HCPCS: 99283-25

== ENCOUNTER 2021-12-03 23:42 | Emergency (ER) | payer OTHER ==
[2021-12-04 00:14] VITALS: BP 141/62; PULSE 89; TEMP 98.1; BMI 35.9
== END 2021-12-04 05:48 | disposition home or self-care (01) ==
LOC: JER 23:42
DX: Z59.02 Unsheltered homelessness (principal)
CPT/HCPCS: 99281-25

== ENCOUNTER 2021-12-05 00:48 | Emergency (ER) | payer OTHER ==
[2021-12-05 01:23] VITALS: TEMP 98.6; BMI 31.8
[2021-12-05] MEDS ORDERED: IBUPROFEN 600 MG TABLET (FP) PO ONE (02:40)
[2021-12-05] MEDS ORDERED: METHOCARBAMOL 500 MG TABLET PO ONE (03:06)
[2021-12-05 06:20] VITALS: BP 108/74; PULSE 61
== END 2021-12-05 06:20 | disposition home or self-care (01) ==
LOC: JER 00:48
DX: M54.50 Low back pain, unspecified (principal)
CPT/HCPCS: 99283-25

== ENCOUNTER 2021-12-06 23:10 | Emergency (ER) | payer OTHER ==
[2021-12-06 23:16] VITALS: BP 156/87; PULSE 87; TEMP 97; BMI 34.0
== END 2021-12-07 05:54 | disposition home or self-care (01) ==
LOC: JER 23:10
DX: R68.89 Other general symptoms and signs (principal); Z59.00 Homelessness unspecified
CPT/HCPCS: 99283-25

== ENCOUNTER 2021-12-07 20:53 | Emergency (ER) | payer OTHER ==
[2021-12-07 21:00] VITALS: TEMP 98.1; BMI 39.1
[2021-12-08] MEDS ORDERED: METHOCARBAMOL 500 MG TABLET PO ONE (05:44)
[2021-12-08 06:03] VITALS: BP 100/78; PULSE 85
== END 2021-12-08 06:04 | disposition home or self-care (01) ==
LOC: JER 20:53
DX: M54.50 Low back pain, unspecified (principal); G89.29 Other chronic pain
CPT/HCPCS: 99283-25

== ENCOUNTER 2021-12-08 12:26 | Emergency (ER) | payer OTHER ==
[2021-12-08 12:42] VITALS: BP 120/60; PULSE 88; TEMP 97; BMI 34.0
[2021-12-08] MEDS ORDERED: SODIUM CHLORIDE 0.9% 500 ML INFUS.BAG IV ONE (13:26)
[2021-12-08] MEDS ORDERED: chlordiazePOXIDE HCL 25 MG CAPSULE PO ONE (14:32)
[2021-12-08] MEDS ORDERED: chlordiazePOXIDE HCL 25 MG CAPSULE ONE (14:52)
== END 2021-12-08 19:49 | disposition home or self-care (01) ==
LOC: JER 12:26
DX: F10.239 Alcohol dependence with withdrawal, unspecified (principal)
CPT/HCPCS: 99284-25

== ENCOUNTER 2021-12-15 19:34 | Emergency (ER) | payer OTHER ==
[2021-12-15 20:02] VITALS: TEMP 98.1; BMI 33.7
[2021-12-15 20:09] VITALS: BP 104/66; PULSE 90
[2021-12-15] MEDS ORDERED: KETOROLAC TROMETHAMINE 30 MG/1 ML VIAL IM ONE (20:33)
[2021-12-15] MEDS ORDERED: METHOCARBAMOL 500 MG TABLET PO ONE (20:33)
[2021-12-15] MEDS ORDERED: METHOCARBAMOL 500 MG TABLET ONE (20:53)
[2021-12-15] MEDS ORDERED: KETOROLAC TROMETHAMINE 30 MG/1 ML VIAL ONE (20:53)
== END 2021-12-15 22:35 | disposition left against medical advice (07) ==
LOC: JER 19:34
PROC: 3E023GC Introduction of Other Therapeutic Substance into Muscle, Percutaneous Approach (ICD-10-PCS; principal; 2021-12-15)
DX: M54.50 Low back pain, unspecified (principal)
CPT/HCPCS: 99284-25

== ENCOUNTER 2021-12-17 18:51 | Emergency (ER) | payer OTHER ==
[2021-12-17 19:18] VITALS: BP 90/80; PULSE 91; TEMP 97.9; BMI 39.1
== END 2021-12-17 19:30 | disposition left against medical advice (07) ==
LOC: JER 18:51
DX: F10.929 Alcohol use, unspecified with intoxication, unspecified (principal)
CPT/HCPCS: 99281-25

== ENCOUNTER 2021-12-19 00:41 | Emergency (ER) | payer OTHER ==
[2021-12-19 00:53] VITALS: BP 92/71; PULSE 65; TEMP 98.1; BMI 33.3
== END 2021-12-19 06:29 | disposition home or self-care (01) ==
LOC: JER 00:41
DX: Z59.00 Homelessness unspecified (principal)
CPT/HCPCS: 99281-25

== ENCOUNTER 2021-12-21 23:04 | Emergency (ER) | payer OTHER ==
[2021-12-21 23:27] VITALS: BMI 28.3
[2021-12-22 04:16] VITALS: BP 130/75; PULSE 88; TEMP 98.3
== END 2021-12-22 07:08 | disposition left against medical advice (07) ==
LOC: JER 23:04
DX: F10.10 Alcohol abuse, uncomplicated (principal)
CPT/HCPCS: 99283-25

== ENCOUNTER 2021-12-31 22:15 | Emergency (ER) | payer OTHER ==
[2021-12-31 22:28] VITALS: BMI 40.3
[2022-01-01 03:34] VITALS: BP 116/84; PULSE 91; TEMP 98.1
== END 2022-01-01 06:36 | disposition home or self-care (01) ==
LOC: JER 22:15
DX: F10.129 Alcohol abuse with intoxication, unspecified (principal)
CPT/HCPCS: 99281-25

== ENCOUNTER 2022-01-07 21:34 | Emergency (ER) | payer OTHER ==
[2022-01-07 22:14] VITALS: BMI 41.4
[2022-01-08 05:17] VITALS: BP 121/64; PULSE 71; RESP 18; TEMP 97.7
== END 2022-01-08 06:26 | disposition home or self-care (01) ==
LOC: JER 21:34
DX: F10.129 Alcohol abuse with intoxication, unspecified (principal)
CPT/HCPCS: 99281-25

== ENCOUNTER 2022-01-11 21:52 | Inpatient (IN) | payer OTHER ==
[2022-01-11 22:06] VITALS: BMI 33.7
[2022-01-11 23:26] LABS: BASO % 1.3 % (0-2.0); EOS % 2.1 % (0-4.5); HEMATOCRIT 30.8 % (35.4-49); HEMOGLOBIN 9.8 GM/dL (11.7-16.9); LYMPH % 25.3 % (8-40); MCH 23.3 pg (25.7-33.7); MCHC 31.8 g/dl (32.0-35.9); MEAN CELL VOLUME 73.2 fl (80-96); MEAN PLT VOLUME 6.8 fl (7.5-11.1); MONO % 7.1 % (3.8-10.2); NEUT % 64.2 % (42.8-82.8); PLATELET COUNT 295 10^3/uL (134-434); RBC 4.21 M/mm3 (4.00-5.60); RDW 23.6 % (11.9-15.9); WHITE BLOOD COUNT 7.8 K/mm3 (4.0-10.0)
[2022-01-11 23:34] LABS: INR 1.08 (0.83-1.09); PROTHROMBIN TIME (PATIENT) 12.4 SEC (9.7-13.0)
[2022-01-11 23:37] LABS: ACTIVATED PTT 28.3 SECONDS (25.2-36.5)
[2022-01-11 23:46] LABS: CALCIUM 8.2 mg/dL (8.5-10.1)
[2022-01-11 23:47] LABS: ALBUMIN 3.2 g/dl (3.4-5.0); BLOOD UREA NITROGEN 8.5 mg/dL (7-18); MAGNESIUM 1.4 mg/dL (1.8-2.4)
[2022-01-11 23:50] LABS: CREATININE 0.8 mg/dL (0.55-1.3)
[2022-01-11 23:51] LABS: TOT PROT 6.5 g/dl (6.4-8.2)
[2022-01-11 23:52] LABS: BILIRUBIN,TOTAL 0.4 mg/dL (0.2-1)
[2022-01-11 23:55] LABS: N-TERMINAL BNP 35.1 pg/ml (5-125)
[2022-01-11] MEDS ORDERED: POTASSIUM CHLORIDE TABS 20 MEQ TABLET.ER (FP) PO ONE (23:57)
[2022-01-11] MEDS ORDERED: MAGNESIUM SULF 50% (8.12 MEQ/2 ML-1 GM VIAL) IVPB ONE (23:57)
[2022-01-11] MEDS ORDERED: AZITHROMYCIN IVPB 500 MG in DEXTROSE 5%-WATER - 250 ML IVPB ONE (23:59)
[2022-01-11] MEDS ORDERED: CEFTRIAXONE 1,000 MG in DEXTROSE 5%-WATER - 50 ML IVPB ONE (23:59)
[2022-01-12 00:03] LABS: ANISOCYTOSIS 3+; MACROCYTOSIS 1+; OVALOCYTE 1+
[2022-01-12] MEDS ORDERED: POTASSIUM CHLORIDE TABS 20 MEQ TABLET.ER (FP) PO ONE (00:38)
[2022-01-12] MEDS ORDERED: CEFTRIAXONE 1 GM/50 ML BAG ONE (00:38)
[2022-01-12] MEDS ORDERED: AZITHROMYCIN IVPB 500 MG/250 ML BAG IVPB ONE (00:39)
[2022-01-12] MEDS ORDERED: MAGNESIUM SULFATE IN WATER 2 GM/50 ML IVPB IVPB ONE (00:39)
[2022-01-12] MEDS ORDERED: chlordiazePOXIDE HCL 25 MG CAPSULE PO PRN (03:10)
[2022-01-12] MEDS ORDERED: chlordiazePOXIDE HCL 25 MG CAPSULE ONE (05:50)
[2022-01-12] MEDS ORDERED: FOLIC ACID 1 MG TABLET (FP) ONE (05:50)
[2022-01-12] MEDS ORDERED: THIAMINE HCL 100 MG TABLET (FP) ONE (05:50)
[2022-01-12] MEDS ORDERED: FOLIC ACID 1 MG TABLET (FP) PO ONE (06:00)
[2022-01-12] MEDS: THIAMINE HCL 100 MG TABLET (FP) PO SCH ×2 (06:03→10:53)
[2022-01-12] MEDS: chlordiazePOXIDE HCL 25 MG CAPSULE PO SCH ×4 (06:03→22:33)
[2022-01-12 08:11] LABS: INR 1.08 (0.83-1.09); PROTHROMBIN TIME (PATIENT) 12.4 SEC (9.7-13.0)
[2022-01-12 08:14] LABS: ACTIVATED PTT 27.6 SECONDS (25.2-36.5); CALCIUM 8.1 mg/dL (8.5-10.1)
[2022-01-12 08:15] LABS: MAGNESIUM 1.6 mg/dL (1.8-2.4)
[2022-01-12 08:16] LABS: BLOOD UREA NITROGEN 7.5 mg/dL (7-18)
[2022-01-12 08:17] LABS: CREATININE 0.6 mg/dL (0.55-1.3)
[2022-01-12 08:18] LABS: PHOSPHOROUS 3.4 mg/dL (2.5-4.9)
[2022-01-12 08:19] LABS: BASO % 0.9 % (0-2.0); BILIRUBIN,TOTAL 0.5 mg/dL (0.2-1); EOS % 3.8 % (0-4.5); HEMATOCRIT 31.2 % (35.4-49); LYMPH % 32.1 % (8-40); MCH 23.4 pg (25.7-33.7); MCHC 31.9 g/dl (32.0-35.9); MEAN CELL VOLUME 73.4 fl (80-96); MEAN PLT VOLUME 6.8 fl (7.5-11.1); MONO % 8.8 % (3.8-10.2); NEUT % 54.4 % (42.8-82.8); PLATELET COUNT 273 10^3/uL (134-434); RBC 4.25 M/mm3 (4.00-5.60); RDW 23.2 % (11.9-15.9); TOT PROT 6.3 g/dl (6.4-8.2); WHITE BLOOD COUNT 5.4 K/mm3 (4.0-10.0)
[2022-01-12] MEDS ORDERED: AZITHROMYCIN IVPB 250 MG in DEXTROSE 5%-WATER - 250 ML IVPB SCH (10:00)
[2022-01-12] MEDS ORDERED: cefTRIAXone SODIUM 1 GM VIAL ONE (18:25)
[2022-01-12] MEDS ORDERED: DEXTROSE 5%-WATER - 50 ML IVPB ONE (18:25)
[2022-01-12] MEDS: CEFTRIAXONE 1 GM in DEXTROSE 5%-WATER - 50 ML IVPB SCH (18:30)
[2022-01-12] MEDS: AZITHROMYCIN 250 MG TABLET PO SCH (18:31)
[2022-01-12 21:30] LABS: CALCIUM 8.2 mg/dL (8.5-10.1)
[2022-01-12 21:31] LABS: ALBUMIN 2.9 g/dl (3.4-5.0); BLOOD UREA NITROGEN 6.9 mg/dL (7-18); MAGNESIUM 1.5 mg/dL (1.8-2.4)
[2022-01-12 21:34] LABS: CREATININE 0.6 mg/dL (0.55-1.3); PHOSPHOROUS 2.9 mg/dL (2.5-4.9)
[2022-01-12 21:35] LABS: BILIRUBIN,TOTAL 1.2 mg/dL (0.2-1)
[2022-01-13 02:24] LABS: EPI CELLS 10 /uL (0-25.1); HYALINE CASTS 0 /uL (0-3.1); URINE APPEARANCE CLEAR; URINE BACTERIA 10 /uL (0-1359); URINE BILIRUBIN 1+ (NEGATIVE); URINE COLOR DK YELLOW; URINE GLUCOSE (UA) NEGATIVE (NEGATIVE); URINE KETONE NEGATIVE (NEGATIVE); URINE LEUK ESTERASE TRACE (NEGATIVE); URINE NITRITE NEGATIVE (NEGATIVE); URINE PROTEIN TRACE (NEGATIVE); URINE RBC 9 /uL (0-23.9); URINE WBC 15 /uL (0-25.8)
[2022-01-13] MEDS: chlordiazePOXIDE HCL 25 MG CAPSULE PO SCH ×4 (05:29→22:13)
[2022-01-13 09:02] LABS: HEMATOCRIT 31.4 % (35.4-49); HEMOGLOBIN 10.2 GM/dL (11.7-16.9); MCH 23.7 pg (25.7-33.7); MCHC 32.3 g/dl (32.0-35.9); MEAN CELL VOLUME 73.5 fl (80-96); MEAN PLT VOLUME 7.4 fl (7.5-11.1); PLATELET COUNT 235 10^3/uL (134-434); RBC 4.28 M/mm3 (4.00-5.60); RDW 23.3 % (11.9-15.9); WHITE BLOOD COUNT 7.4 K/mm3 (4.0-10.0)
[2022-01-13] MEDS ORDERED: cefTRIAXone SODIUM 1 GM VIAL ONE (10:15)
[2022-01-13] MEDS ORDERED: DEXTROSE 5%-WATER - 50 ML IVPB ONE (10:15)
[2022-01-13] MEDS: AZITHROMYCIN 250 MG TABLET PO SCH (10:50)
[2022-01-13] MEDS: CEFTRIAXONE 1 GM in DEXTROSE 5%-WATER - 50 ML IVPB SCH (10:54)
[2022-01-13] MEDS: THIAMINE HCL 100 MG TABLET (FP) PO SCH (10:57)
[2022-01-14] MEDS ORDERED: chlordiazePOXIDE HCL 10 MG CAPSULE PO PRN
[2022-01-14] MEDS: chlordiazePOXIDE HCL 10 MG CAPSULE PO SCH ×4 (05:15→23:51)
[2022-01-14] MEDS ORDERED: DEXTROSE 5%-WATER - 50 ML IVPB ONE (10:35)
[2022-01-14] MEDS ORDERED: cefTRIAXone SODIUM 1 GM VIAL ONE (10:35)
[2022-01-14] MEDS: METHOCARBAMOL 500 MG TABLET PO PRN ×2 (10:55→16:44)
[2022-01-14] MEDS: THIAMINE HCL 100 MG TABLET (FP) PO SCH (10:56)
[2022-01-14] MEDS: AZITHROMYCIN 250 MG TABLET PO SCH (10:56)
[2022-01-14] MEDS: CEFTRIAXONE 1 GM in DEXTROSE 5%-WATER - 50 ML IVPB SCH (10:56)
[2022-01-15] MEDS: chlordiazePOXIDE HCL 10 MG CAPSULE PO SCH ×2 (06:09→18:28)
[2022-01-15 08:59] LABS: HEMATOCRIT 30.9 % (35.4-49); HEMOGLOBIN 9.9 GM/dL (11.7-16.9); MCH 23.6 pg (25.7-33.7); MEAN CELL VOLUME 73.7 fl (80-96); MEAN PLT VOLUME 7.4 fl (7.5-11.1); PLATELET COUNT 226 10^3/uL (134-434); RBC 4.19 M/mm3 (4.00-5.60); WHITE BLOOD COUNT 8.4 K/mm3 (4.0-10.0)
[2022-01-15 09:31] LABS: BLOOD UREA NITROGEN 5.7 mg/dL (7-18)
[2022-01-15 09:32] LABS: CALCIUM 8.7 mg/dL (8.5-10.1)
[2022-01-15 09:33] LABS: ALBUMIN 2.9 g/dl (3.4-5.0); MAGNESIUM 1.5 mg/dL (1.8-2.4)
[2022-01-15 09:36] LABS: CREATININE 0.5 mg/dL (0.55-1.3); PHOSPHOROUS 3.5 mg/dL (2.5-4.9)
[2022-01-15 09:37] LABS: BILIRUBIN,TOTAL 0.6 mg/dL (0.2-1); TOT PROT 5.8 g/dl (6.4-8.2)
[2022-01-15] MEDS: CEFTRIAXONE 1 GM in DEXTROSE 5%-WATER - 50 ML IVPB SCH ×2 (10:25→11:07)
[2022-01-15] MEDS: AZITHROMYCIN 250 MG TABLET PO SCH (10:26)
[2022-01-15] MEDS: THIAMINE HCL 100 MG TABLET (FP) PO SCH ×2 (10:26→11:07)
[2022-01-15] MEDS ORDERED: MAGNESIUM OXIDE 400 MG TABLET (FP) PO ONE (11:20)
[2022-01-15 15:44] VITALS: RESP 20
[2022-01-15] MEDS ORDERED: ROCURONIUM BROMIDE 50 MG/5 ML SYRINGE ONE (17:48)
[2022-01-15] MEDS ORDERED: POTASSIUM CHLORIDE TABS 20 MEQ TABLET.ER (FP) PO ONE (19:16)
[2022-01-16] MEDS: CEFTRIAXONE 1 GM in DEXTROSE 5%-WATER - 50 ML IVPB SCH (09:44)
[2022-01-16] MEDS: THIAMINE HCL 100 MG TABLET (FP) PO SCH (09:50)
[2022-01-16] MEDS ORDERED: chlordiazePOXIDE HCL 10 MG CAPSULE PO ONE (10:00)
[2022-01-16 10:05] LABS: BLOOD UREA NITROGEN 8.9 mg/dL (7-18); MAGNESIUM 1.6 mg/dL (1.8-2.4)
[2022-01-16 10:06] LABS: CALCIUM 8.7 mg/dL (8.5-10.1)
[2022-01-16 10:09] LABS: CREATININE 0.6 mg/dL (0.55-1.3)
[2022-01-16 10:10] LABS: BILIRUBIN,TOTAL 0.6 mg/dL (0.2-1); TOT PROT 6.1 g/dl (6.4-8.2)
[2022-01-16] MEDS ORDERED: MAGNESIUM OXIDE 400 MG TABLET (FP) PO ONE (19:12)
[2022-01-17] MEDS: THIAMINE HCL 100 MG TABLET (FP) PO SCH (09:10)
[2022-01-17] MEDS: CEFTRIAXONE 1 GM in DEXTROSE 5%-WATER - 50 ML IVPB SCH (09:11)
[2022-01-17 13:00] LABS: HEMATOCRIT 33.6 % (35.4-49); HEMOGLOBIN 10.7 GM/dL (11.7-16.9); MCH 23.8 pg (25.7-33.7); MCHC 31.7 g/dl (32.0-35.9); MEAN CELL VOLUME 75.1 fl (80-96); MEAN PLT VOLUME 7.1 fl (7.5-11.1); PLATELET COUNT 233 10^3/uL (134-434); RBC 4.47 M/mm3 (4.00-5.60); RDW 25.1 % (11.9-15.9); WHITE BLOOD COUNT 8.5 K/mm3 (4.0-10.0)
[2022-01-17 13:20] LABS: CALCIUM 9.1 mg/dL (8.5-10.1)
[2022-01-17 13:21] LABS: ALBUMIN 3.1 g/dl (3.4-5.0); BLOOD UREA NITROGEN 6.4 mg/dL (7-18); MAGNESIUM 1.8 mg/dL (1.8-2.4)
[2022-01-17 13:24] LABS: CREATININE 0.5 mg/dL (0.55-1.3); PHOSPHOROUS 3.1 mg/dL (2.5-4.9)
[2022-01-17 13:26] LABS: BILIRUBIN,TOTAL 0.5 mg/dL (0.2-1); TOT PROT 6.7 g/dl (6.4-8.2)
[2022-01-18] MEDS: METHOCARBAMOL 500 MG TABLET PO PRN (01:17)
[2022-01-18 03:07] VITALS: PULSE 87; TEMP 98.6
[2022-01-18 07:46] VITALS: BP 154/90
[2022-01-18] MEDS: THIAMINE HCL 100 MG TABLET (FP) PO SCH (09:18)
== END 2022-01-18 10:33 | disposition home or self-care (01) | DRG 193 ==
LOC: JER 21:52 → JERBED 01-12 → J8W 01-12 09:21 → J6S 01-17 18:45
PROVIDERS: ADMIT Internal Medicine; ATTEND Internal Medicine
DX: J18.9 Pneumonia, unspecified organism (principal); J96.01 Acute respiratory failure with hypoxia; J98.11 Atelectasis; I11.0 Hypertensive heart disease with heart failure; I50.9 Heart failure, unspecified; F10.20 Alcohol dependence, uncomplicated; J44.9 Chronic obstructive pulmonary disease, unspecified; E78.5 Hyperlipidemia, unspecified; K21.9 Gastro-esophageal reflux disease without esophagitis; Z59.00 Homelessness unspecified; E83.42 Hypomagnesemia; E87.6 Hypokalemia; E66.9 Obesity, unspecified
CPT/HCPCS: 0241U-QW; 36415; 71045-TC-FY; 80053; 81003; 83735; 83880; 84100; 84443; 84484; 85025; 85027; 85379; 85610; 85730; 87040; 87899; 93005; 93010; 99285-25

== ENCOUNTER 2022-01-24 21:31 | Emergency (ER) | payer OTHER ==
[2022-01-24 21:40] VITALS: PULSE 92; TEMP 97.6; BMI 33.9
[2022-01-25 05:26] VITALS: BP 135/95; RESP 20
== END 2022-01-25 05:43 | disposition home or self-care (01) ==
LOC: JER 21:31
DX: Z59.00 Homelessness unspecified (principal)
CPT/HCPCS: 99281-25

== ENCOUNTER 2022-01-29 01:13 | Emergency (ER) | payer OTHER ==
[2022-01-29 01:26] VITALS: BP 135/78; PULSE 89; RESP 20; TEMP 97.8; BMI 33.9
== END 2022-01-29 06:00 | disposition home or self-care (01) ==
LOC: JER 01:13
DX: M54.50 Low back pain, unspecified (principal)
CPT/HCPCS: 99281-25

== ENCOUNTER 2022-01-31 20:44 | Emergency (ER) | payer OTHER ==
[2022-01-31 21:11] VITALS: PULSE 95; RESP 20; BMI 25.8
[2022-02-01] MEDS ORDERED: IBUPROFEN 400 MG TABLET (FP) PO ONE ×2 (00:08→00:31)
[2022-02-01 05:21] VITALS: BP 133/81; TEMP 97.5
== END 2022-02-01 05:30 | disposition home or self-care (01) ==
LOC: JER 20:44
DX: F10.120 Alcohol abuse with intoxication, uncomplicated (principal); M54.50 Low back pain, unspecified
CPT/HCPCS: 99283-25

== ENCOUNTER 2022-02-01 17:29 | Emergency (ER) | payer OTHER ==
[2022-02-01 17:33] VITALS: BP 107/66; PULSE 99; RESP 18; TEMP 98.1; BMI 33.0
[2022-02-01] MEDS ORDERED: SODIUM CHLORIDE 3,130 ML IV ONE (17:58)
[2022-02-01] MEDS ORDERED: SODIUM CHLORIDE 0.9% 500 ML INFUS.BAG IV ONE (17:59)
[2022-02-01] MEDS ORDERED: FOLIC ACID INJECTION - 1 MG, THIAMINE HCL 100 MG, MULTIVIT INJECTION ADULT 10 ML in SOD... IVPB ONE (17:59)
== END 2022-02-01 18:12 | disposition left against medical advice (07) ==
LOC: JER 17:29
DX: R06.02 Shortness of breath (principal)
CPT/HCPCS: 99281-25

== ENCOUNTER 2022-02-01 23:16 | Emergency (ER) | payer OTHER ==
[2022-02-01 23:32] VITALS: BP 122/59; PULSE 84; RESP 16; TEMP 98.6; BMI 33.9
== END 2022-02-02 06:18 | disposition home or self-care (01) ==
LOC: JER 23:16
DX: Z59.00 Homelessness unspecified (principal)
CPT/HCPCS: 99281-25

== ENCOUNTER 2022-02-06 22:33 | Emergency (ER) | payer OTHER ==
[2022-02-06 22:49] VITALS: BP 112/75; PULSE 93; RESP 20; TEMP 98.1; BMI 27.3
[2022-02-07] MEDS ORDERED: ACETAMINOPHEN 1000 MG/100 ML BAG IVPB ONE (06:57)
== END 2022-02-07 08:11 | disposition left against medical advice (07) ==
LOC: JER 22:33
PROC: 3E0333Z Introduction of Anti-inflammatory into Peripheral Vein, Percutaneous Approach (ICD-10-PCS; principal; 2022-02-06)
DX: M54.50 Low back pain, unspecified (principal)
CPT/HCPCS: 96374; 99285-25

== ENCOUNTER 2022-02-18 22:07 | Emergency (ER) | payer OTHER ==
[2022-02-18 22:40] VITALS: BP 96/58; PULSE 95; RESP 20; TEMP 98; BMI 31.9
== END 2022-02-19 06:32 | disposition home or self-care (01) ==
LOC: JER 22:07
DX: Z59.00 Homelessness unspecified (principal)
CPT/HCPCS: 99281-25

== ENCOUNTER 2022-02-22 18:31 | Inpatient (IN) | payer OTHER ==
[2022-02-22 20:15] LABS: VENOUS BASE EXCESS 1.1 mmol/L (-2-2); VENOUS O2 SATURATION 76.5 % (70-80); VENOUS PCO2 46.3 mmHg (38-52); VENOUS PH 7.377 (7.310-7.410)
[2022-02-22 20:16] LABS: BASO % 1.2 % (0-2.0); HEMATOCRIT 30.3 % (35.4-49); HEMOGLOBIN 9.8 GM/dL (11.7-16.9); LYMPH % 22.4 % (8-40); MCH 25.1 pg (25.7-33.7); MCHC 32.2 g/dl (32.0-35.9); MEAN PLT VOLUME 7.2 fl (7.5-11.1); NEUT % 66.4 % (42.8-82.8); PLATELET COUNT 436 10^3/uL (134-434); RBC 3.89 M/mm3 (4.00-5.60); RDW 24.9 % (11.9-15.9); WHITE BLOOD COUNT 7.8 K/mm3 (4.0-10.0)
[2022-02-22 20:28] LABS: INR 1.08 (0.83-1.09); PROTHROMBIN TIME (PATIENT) 12.4 SEC (9.7-13.0)
[2022-02-22 20:31] LABS: ACTIVATED PTT 25.2 SECONDS (25.2-36.5)
[2022-02-22 20:38] LABS: ALBUMIN 2.9 g/dl (3.4-5.0); BLOOD UREA NITROGEN 6.8 mg/dL (7-18); CALCIUM 8.8 mg/dL (8.5-10.1)
[2022-02-22 20:41] LABS: CREATININE 0.8 mg/dL (0.55-1.3)
[2022-02-22 20:43] LABS: BILIRUBIN,TOTAL 0.3 mg/dL (0.2-1); TOT PROT 6.2 g/dl (6.4-8.2)
[2022-02-22 20:44] LABS: LACTIC ACID 3.9 mmol/L (0.4-2.0)
[2022-02-22] MEDS ORDERED: methylPREDNISolone NA SUCC 125 MG/2 ML VIAL IVPUSH ONE (21:38)
[2022-02-22] MEDS ORDERED: methylPREDNISolone NA SUCC 125 MG/2 ML VIAL ONE (21:46)
[2022-02-22] MEDS ORDERED: ALBUTEROL SO4 2.5/IPRATROPIUM 0.5 INH SOL 3 ML VIAL.NEB. NEB SCH (21:46)
[2022-02-22 21:54] LABS: ANISOCYTOSIS 3+; MACROCYTOSIS 0; OVALOCYTE 1+; TARGET CELLS 1+
[2022-02-22] MEDS ORDERED: LACTATED RINGERS SOLUTION 1000 ML INFUS.BAG IV ONE (22:08)
[2022-02-23] MEDS ORDERED: FOLIC ACID INJECTION - 1 MG, THIAMINE HCL 100 MG, MULTIVIT INJECTION ADULT 10 ML in SOD... IVPB ONE (00:56)
[2022-02-23 03:46] LABS: BLOOD UREA NITROGEN 5.1 mg/dL (7-18); CALCIUM 8.6 mg/dL (8.5-10.1)
[2022-02-23 03:50] LABS: CREATININE 0.6 mg/dL (0.55-1.3)
[2022-02-23 04:15] LABS: LACTIC ACID 3.9 mmol/L (0.4-2.0)
[2022-02-23] MEDS: methylPREDNISolone NA SUCC 40 MG/1 ML VIAL IVPUSH SCH ×2 (04:55→09:26)
[2022-02-23] MEDS: LORazepam 2 MG/ML SDV VIAL IVPUSH SCH ×2 (04:55→06:22)
[2022-02-23] MEDS ORDERED: methylPREDNISolone NA SUCC 40 MG/1 ML VIAL ONE (04:58)
[2022-02-23 06:18] VITALS: BMI 35.6
[2022-02-23] MEDS: FERROUS SO4 325 MG TABLET (FP) PO SCH (06:21)
[2022-02-23] MEDS: ALBUTEROL SO4 2.5/IPRATROPIUM 0.5 INH SOL 3 ML VIAL.NEB. NEB SCH ×2 (06:23→09:26)
[2022-02-23] MEDS ORDERED: amLODIPine BESYLATE 5 MG TABLET (FP) PO ONE (06:24)
[2022-02-23 07:02] LABS: EPI CELLS 26 /uL (0-25.1); HYALINE CASTS 1 /uL (0-3.1); URINE APPEARANCE CLEAR; URINE BACTERIA 25 /uL (0-1359); URINE BILIRUBIN NEGATIVE (NEGATIVE); URINE COLOR YELLOW; URINE GLUCOSE (UA) NEGATIVE (NEGATIVE); URINE KETONE NEGATIVE (NEGATIVE); URINE LEUK ESTERASE TRACE (NEGATIVE); URINE NITRITE NEGATIVE (NEGATIVE); URINE PROTEIN NEGATIVE (NEGATIVE); URINE RBC 3 /uL (0-23.9); URINE UROBILINOGEN 0.2 mg/dL (0.2-1.0); URINE WBC 26 /uL (0-25.8)
[2022-02-23] MEDS ORDERED: ALBUTEROL SO4 2.5/IPRATROPIUM 0.5 INH SOL 3 ML VIAL.NEB. NEB SCH (08:00)
[2022-02-23] MEDS: BUDESONIDE/FORMETEROL FUMARATE 160/4.5 mcg INHALER IH SCH (09:26)
[2022-02-23] MEDS: ENOXAPARIN NA (PORCINE) 40 MG/0.4 ML DISP.SYRIN SQ SCH (09:26)
[2022-02-23] MEDS: PANTOPRAZOLE 40 MG TABLET PO SCH (09:26)
[2022-02-23] MEDS: THIAMINE HCL 100 MG TABLET (FP) PO SCH ×2 (09:26→22:31)
[2022-02-23] MEDS: MULTIVITAMINS (DAILY MVI) TABLET (FP) PO SCH (09:26)
[2022-02-23] MEDS: FOLIC ACID 1 MG TABLET (FP) PO SCH (09:26)
[2022-02-23 09:45] LABS: BASO % 0.2 % (0-2.0); HEMATOCRIT 33.6 % (35.4-49); HEMOGLOBIN 10.6 GM/dL (11.7-16.9); LYMPH % 9.7 % (8-40); MCH 24.9 pg (25.7-33.7); MCHC 31.7 g/dl (32.0-35.9); MEAN CELL VOLUME 78.6 fl (80-96); MEAN PLT VOLUME 7.3 fl (7.5-11.1); MONO % 0.5 % (3.8-10.2); NEUT % 89.6 % (42.8-82.8); PLATELET COUNT 415 10^3/uL (134-434); RBC 4.27 M/mm3 (4.00-5.60); RDW 24.9 % (11.9-15.9); WHITE BLOOD COUNT 4.5 K/mm3 (4.0-10.0)
[2022-02-23 10:18] LABS: ALBUMIN 2.9 g/dl (3.4-5.0); BLOOD UREA NITROGEN 4.8 mg/dL (7-18); CALCIUM 8.8 mg/dL (8.5-10.1); MAGNESIUM 1.3 mg/dL (1.8-2.4)
[2022-02-23 10:20] LABS: LACTIC ACID 5.4 mmol/L (0.4-2.0)
[2022-02-23 10:21] LABS: CREATININE 0.7 mg/dL (0.55-1.3); PHOSPHOROUS 2.5 mg/dL (2.5-4.9)
[2022-02-23 10:22] LABS: BILIRUBIN,TOTAL 0.3 mg/dL (0.2-1)
[2022-02-23 10:23] LABS: TOT PROT 6.3 g/dl (6.4-8.2)
[2022-02-23] MEDS: LIDOCAINE 5% TOPICAL PATCH TP SCH (12:11)
[2022-02-23] MEDS: THIAMINE HCL 200 MG/2 ML VIAL IM SCH (12:12)
[2022-02-23] MEDS: LACTATED RINGERS SOLUTION 1,000 ML/1,000 ML INFUS.BAG IV SCH ×2 (12:33→22:42)
[2022-02-23] MEDS: chlordiazePOXIDE HCL 25 MG CAPSULE PO SCH ×2 (17:54→22:31)
[2022-02-24] MEDS: THIAMINE HCL 100 MG TABLET (FP) PO SCH ×3 (00:18→22:17)
[2022-02-24] MEDS: LIDOCAINE PATCH REMOVAL MC SCH ×2 (00:18→22:16)
[2022-02-24] MEDS: BUDESONIDE/FORMETEROL FUMARATE 160/4.5 mcg INHALER IH SCH ×3 (00:18→22:20)
[2022-02-24] MEDS: ALBUTEROL SO4 2.5/IPRATROPIUM 0.5 INH SOL 3 ML VIAL.NEB. NEB SCH ×6 (01:13→20:36)
[2022-02-24] MEDS ORDERED: hydrALAZINE HCL 20 MG/ML VIAL IVPUSH ONE (06:30)
[2022-02-24] MEDS: chlordiazePOXIDE HCL 25 MG CAPSULE PO SCH ×4 (07:11→22:17)
[2022-02-24 09:41] LABS: BASO % 0.1 % (0-2.0); EOS % 0.1 % (0-4.5); HEMATOCRIT 34.6 % (35.4-49); HEMOGLOBIN 10.7 GM/dL (11.7-16.9); LYMPH % 10.8 % (8-40); MCH 23.9 pg (25.7-33.7); MCHC 30.8 g/dl (32.0-35.9); MEAN CELL VOLUME 77.7 fl (80-96); MEAN PLT VOLUME 7.3 fl (7.5-11.1); MONO % 3.3 % (3.8-10.2); NEUT % 85.7 % (42.8-82.8); PLATELET COUNT 436 10^3/uL (134-434); RBC 4.46 M/mm3 (4.00-5.60); RDW 24.8 % (11.9-15.9); WHITE BLOOD COUNT 14.9 K/mm3 (4.0-10.0)
[2022-02-24 10:03] LABS: ALBUMIN 2.7 g/dl (3.4-5.0); BLOOD UREA NITROGEN 8.8 mg/dL (7-18); CALCIUM 8.7 mg/dL (8.5-10.1)
[2022-02-24 10:06] LABS: CREATININE 0.6 mg/dL (0.55-1.3)
[2022-02-24 10:08] LABS: BILIRUBIN,TOTAL 0.4 mg/dL (0.2-1); TOT PROT 5.9 g/dl (6.4-8.2)
[2022-02-24] MEDS: FERROUS SO4 325 MG TABLET (FP) PO SCH (10:14)
[2022-02-24] MEDS: ENOXAPARIN NA (PORCINE) 40 MG/0.4 ML DISP.SYRIN SQ SCH (10:15)
[2022-02-24] MEDS: PANTOPRAZOLE 40 MG TABLET PO SCH (10:15)
[2022-02-24] MEDS: LIDOCAINE 5% TOPICAL PATCH TP SCH (10:15)
[2022-02-24] MEDS: MULTIVITAMINS (DAILY MVI) TABLET (FP) PO SCH (10:15)
[2022-02-24] MEDS: FOLIC ACID 1 MG TABLET (FP) PO SCH (10:15)
[2022-02-24] MEDS: THIAMINE HCL 200 MG/2 ML VIAL IM SCH (10:16)
[2022-02-24] MEDS ORDERED: IBUPROFEN 400 MG TABLET (FP) PO PRN (11:08)
[2022-02-24] MEDS: amLODIPine BESYLATE 10 MG TABLET (FP) PO SCH (15:55)
[2022-02-24] MEDS: LACTATED RINGERS SOLUTION 1,000 ML/1,000 ML INFUS.BAG IV SCH (17:46)
[2022-02-25] MEDS: ALBUTEROL SO4 2.5/IPRATROPIUM 0.5 INH SOL 3 ML VIAL.NEB. NEB SCH ×6 (00:33→20:26)
[2022-02-25] MEDS: chlordiazePOXIDE HCL 25 MG CAPSULE PO SCH ×4 (06:27→23:12)
[2022-02-25] MEDS: FERROUS SO4 325 MG TABLET (FP) PO SCH (06:29)
[2022-02-25] MEDS: FOLIC ACID 1 MG TABLET (FP) PO SCH (10:11)
[2022-02-25] MEDS: PANTOPRAZOLE 40 MG TABLET PO SCH (10:11)
[2022-02-25] MEDS: LIDOCAINE 5% TOPICAL PATCH TP SCH (10:11)
[2022-02-25] MEDS: ENOXAPARIN NA (PORCINE) 40 MG/0.4 ML DISP.SYRIN SQ SCH (10:11)
[2022-02-25] MEDS: MULTIVITAMINS (DAILY MVI) TABLET (FP) PO SCH (10:13)
[2022-02-25] MEDS: BUDESONIDE/FORMETEROL FUMARATE 160/4.5 mcg INHALER IH SCH ×2 (10:13→23:14)
[2022-02-25] MEDS: THIAMINE HCL 100 MG TABLET (FP) PO SCH ×2 (10:13→23:12)
[2022-02-25] MEDS: LACTATED RINGERS SOLUTION 1,000 ML/1,000 ML INFUS.BAG IV SCH (10:14)
[2022-02-25] MEDS: THIAMINE HCL 200 MG/2 ML VIAL IM SCH (10:14)
[2022-02-25] MEDS: amLODIPine BESYLATE 10 MG TABLET (FP) PO SCH (10:14)
[2022-02-25] MEDS: METHOCARBAMOL 500 MG TABLET PO PRN ×2 (11:50→23:14)
[2022-02-25] MEDS ORDERED: METHOCARBAMOL 500 MG TABLET PO SCH (14:00)
[2022-02-25] MEDS: LIDOCAINE PATCH REMOVAL MC SCH (23:15)
[2022-02-26] MEDS: ALBUTEROL SO4 2.5/IPRATROPIUM 0.5 INH SOL 3 ML VIAL.NEB. NEB SCH ×6 (04:00→20:26)
[2022-02-26] MEDS: chlordiazePOXIDE HCL 25 MG CAPSULE PO SCH ×3 (06:22→16:55)
[2022-02-26] MEDS: FERROUS SO4 325 MG TABLET (FP) PO SCH (06:25)
[2022-02-26 07:04] VITALS: RESP 18
[2022-02-26] MEDS: FOLIC ACID 1 MG TABLET (FP) PO SCH (09:41)
[2022-02-26] MEDS: LIDOCAINE 5% TOPICAL PATCH TP SCH (09:42)
[2022-02-26] MEDS: ENOXAPARIN NA (PORCINE) 40 MG/0.4 ML DISP.SYRIN SQ SCH (09:42)
[2022-02-26] MEDS: THIAMINE HCL 200 MG/2 ML VIAL IM SCH (09:45)
[2022-02-26] MEDS: BUDESONIDE/FORMETEROL FUMARATE 160/4.5 mcg INHALER IH SCH (09:45)
[2022-02-26] MEDS: PANTOPRAZOLE 40 MG TABLET PO SCH (09:45)
[2022-02-26] MEDS: THIAMINE HCL 100 MG TABLET (FP) PO SCH (09:45)
[2022-02-26] MEDS: MULTIVITAMINS (DAILY MVI) TABLET (FP) PO SCH (09:45)
[2022-02-26] MEDS: amLODIPine BESYLATE 10 MG TABLET (FP) PO SCH (09:45)
[2022-02-26] MEDS: LACTATED RINGERS SOLUTION 1,000 ML/1,000 ML INFUS.BAG IV SCH (11:20)
[2022-02-26] MEDS: BACITRACIN 15 GM TUBE TOPICAL OINTMENT TP SCH (13:05)
[2022-02-27] MEDS: BACITRACIN 15 GM TUBE TOPICAL OINTMENT TP SCH (00:38)
[2022-02-27] MEDS: LIDOCAINE PATCH REMOVAL MC SCH (00:39)
[2022-02-27] MEDS: BUDESONIDE/FORMETEROL FUMARATE 160/4.5 mcg INHALER IH SCH (00:39)
[2022-02-27] MEDS: chlordiazePOXIDE HCL 25 MG CAPSULE PO SCH ×2 (00:40→06:00)
[2022-02-27] MEDS: THIAMINE HCL 100 MG TABLET (FP) PO SCH (00:46)
[2022-02-27] MEDS: ALBUTEROL SO4 2.5/IPRATROPIUM 0.5 INH SOL 3 ML VIAL.NEB. NEB SCH ×3 (04:30→07:40)
[2022-02-27] MEDS: FERROUS SO4 325 MG TABLET (FP) PO SCH (06:03)
[2022-02-27 06:35] VITALS: BP 137/71; PULSE 81; TEMP 98.9
== END 2022-02-27 09:16 | disposition left against medical advice (07) | DRG 894 ==
LOC: JER 18:31 → JERBED 02-23 00:15 → J7W 02-23 05:54
PROVIDERS: ADMIT Internal Medicine; ATTEND Nurse Practitioner Family
PROC: HZ2ZZZZ Detoxification Services for Substance Abuse Treatment (ICD-10-PCS; principal; 2022-02-23)
DX: F10.239 Alcohol dependence with withdrawal, unspecified (principal); E87.2 Acidosis; Z59.00 Homelessness unspecified; R29.6 Repeated falls; J44.9 Chronic obstructive pulmonary disease, unspecified; I10 Essential (primary) hypertension; E78.5 Hyperlipidemia, unspecified; D72.829 Elevated white blood cell count, unspecified; E66.9 Obesity, unspecified; Z68.35 Body mass index [BMI] 35.0-35.9, adult
CPT/HCPCS: 0241U-QW; 36415; 71045-TC-FY; 80048; 80053; 81003; 82728; 82803; 83036; 83540; 83550; 83605; 83735; 83880; 84100; 84484; 85025; 85379; 85610; 85730; 86850; 86900; 86901; 87040; 93005; 93010; 94640; 97116-GP; 97161-GP; 99285-25

== ENCOUNTER 2022-03-03 21:20 | Emergency (ER) | payer OTHER ==
[2022-03-03 21:37] VITALS: BP 101/68; PULSE 87; RESP 19; TEMP 98; BMI 29.7
== END 2022-03-04 06:30 | disposition home or self-care (01) ==
LOC: JER 21:20
DX: Z59.00 Homelessness unspecified (principal)
CPT/HCPCS: 99281-25

== ENCOUNTER 2022-03-06 19:16 | Observation (INO) | payer OTHER ==
[2022-03-07 01:45] LABS: EOS % 3.1 % (0-4.5); HEMATOCRIT 31.6 % (35.4-49); HEMOGLOBIN 10.1 GM/dL (11.7-16.9); LYMPH % 23.5 % (8-40); MCH 24.9 pg (25.7-33.7); MCHC 31.9 g/dl (32.0-35.9); MONO % 6.3 % (3.8-10.2); NEUT % 66.1 % (42.8-82.8); PLATELET COUNT 350 10^3/uL (134-434); RBC 4.06 M/mm3 (4.00-5.60); RDW 24.5 % (11.9-15.9); WHITE BLOOD COUNT 6.4 K/mm3 (4.0-10.0)
[2022-03-07 02:05] LABS: CALCIUM 8.2 mg/dL (8.5-10.1)
[2022-03-07 02:06] LABS: ALBUMIN 3.1 g/dl (3.4-5.0); BLOOD UREA NITROGEN 6.9 mg/dL (7-18)
[2022-03-07 02:09] LABS: CREATININE 0.6 mg/dL (0.55-1.3)
[2022-03-07 02:10] LABS: BILIRUBIN,TOTAL 0.3 mg/dL (0.2-1); TOT PROT 6.4 g/dl (6.4-8.2)
[2022-03-07 03:21] LABS: ANISOCYTOSIS 1+; MACROCYTOSIS 0; OVALOCYTE 1+; ROULEAU 1+
[2022-03-07] MEDS ORDERED: ACETAMINOPHEN 325 MG TABLET (FP) PO PRN (10:10)
[2022-03-07] MEDS: POTASSIUM CHLORIDE TABS 20 MEQ TABLET.ER (FP) PO ONE ×2 (11:34→11:41)
[2022-03-07] MEDS: THIAMINE HCL 100 MG TABLET (FP) PO SCH ×2 (11:34→11:41)
[2022-03-07] MEDS: FOLIC ACID 1 MG TABLET (FP) PO SCH ×2 (11:34→11:40)
[2022-03-07] MEDS ORDERED: MAG HYDROX/AL HYDROX/SIMETH 30 ML UNIT-DOSE CUP PO PRN (11:42)
[2022-03-07] MEDS: PANTOPRAZOLE SODIUM 40 MG VIAL IVPUSH SCH (13:31)
[2022-03-07] MEDS: LIDOCAINE 5% TOPICAL PATCH TP SCH (18:31)
[2022-03-07] MEDS: LIDOCAINE PATCH REMOVAL MC SCH (22:34)
[2022-03-07 23:05] VITALS: BMI 32.8
[2022-03-08 09:45] LABS: HEMATOCRIT 29.2 % (35.4-49); HEMOGLOBIN 9.2 GM/dL (11.7-16.9); MCH 24.3 pg (25.7-33.7); MCHC 31.5 g/dl (32.0-35.9); MEAN CELL VOLUME 77.2 fl (80-96); MEAN PLT VOLUME 7.5 fl (7.5-11.1); PLATELET COUNT 281 10^3/uL (134-434); RBC 3.78 M/mm3 (4.00-5.60); RDW 24.1 % (11.9-15.9); WHITE BLOOD COUNT 8.1 K/mm3 (4.0-10.0)
[2022-03-08 10:07] LABS: BLOOD UREA NITROGEN 5.7 mg/dL (7-18); CALCIUM 7.9 mg/dL (8.5-10.1); MAGNESIUM 1.5 mg/dL (1.8-2.4)
[2022-03-08 10:10] LABS: PHOSPHOROUS 2.8 mg/dL (2.5-4.9)
[2022-03-08 10:11] LABS: CREATININE 0.5 mg/dL (0.55-1.3)
[2022-03-08] MEDS: ENOXAPARIN NA (PORCINE) 40 MG/0.4 ML DISP.SYRIN SQ SCH (10:34)
[2022-03-08] MEDS: THIAMINE HCL 100 MG TABLET (FP) PO SCH (10:34)
[2022-03-08] MEDS: LIDOCAINE 5% TOPICAL PATCH TP SCH (10:34)
[2022-03-08] MEDS: PANTOPRAZOLE SODIUM 40 MG VIAL IVPUSH SCH (10:34)
[2022-03-08] MEDS: FOLIC ACID 1 MG TABLET (FP) PO SCH (10:35)
[2022-03-08] MEDS: MAGNESIUM OXIDE 400 MG TABLET (FP) PO SCH ×2 (15:49→22:59)
[2022-03-08] MEDS: POTASSIUM CHLORIDE TABS 20 MEQ TABLET.ER (FP) PO SCH ×2 (15:50→22:59)
[2022-03-08 22:49] VITALS: RESP 20
[2022-03-08] MEDS: LIDOCAINE PATCH REMOVAL MC SCH (22:59)
[2022-03-09] MEDS: LIDOCAINE 5% TOPICAL PATCH TP SCH (09:01)
[2022-03-09] MEDS: FOLIC ACID 1 MG TABLET (FP) PO SCH (09:01)
[2022-03-09] MEDS: THIAMINE HCL 100 MG TABLET (FP) PO SCH (09:02)
[2022-03-09] MEDS: ENOXAPARIN NA (PORCINE) 40 MG/0.4 ML DISP.SYRIN SQ SCH (09:02)
[2022-03-09] MEDS ORDERED: PANTOPRAZOLE 40 MG TABLET PO SCH (10:00)
[2022-03-09 11:14] VITALS: BP 127/87; PULSE 100; TEMP 98.6
== END 2022-03-09 12:39 | disposition home or self-care (01) ==
LOC: JER 19:16 → JERBED 03-07 05:38 → J5S 03-07 20:40
PROVIDERS: ADMIT Internal Medicine; ATTEND Nurse Practitioner Acute Care
DX: F10.929 Alcohol use, unspecified with intoxication, unspecified (principal); K29.20 Alcoholic gastritis without bleeding; J43.9 Emphysema, unspecified; Z91.81 History of falling; C45.9 Mesothelioma, unspecified; E66.9 Obesity, unspecified; E87.6 Hypokalemia; Z59.00 Homelessness unspecified; V89.2XXA Person injured in unspecified motor-vehicle accident, traffic, initial encounter; Y93.89 Activity, other specified; Y92.89 Other specified places as the place of occurrence of the external cause; Z91.013 Allergy to seafood
CPT/HCPCS: 0241U-QW; 36415; 70450-TC; 71045-TC-FY; 72125-TC; 80048; 80053; 80307; 83735; 84100; 84484; 85025; 85027; 99285-25; G0378

== ENCOUNTER 2022-03-09 21:18 | Emergency (ER) | payer OTHER ==
[2022-03-09 21:28] VITALS: BMI 31.6
[2022-03-10 02:22] VITALS: BP 100/53; PULSE 90; RESP 17; TEMP 97.7
== END 2022-03-10 06:07 | disposition home or self-care (01) ==
LOC: JER 21:18
DX: F10.920 Alcohol use, unspecified with intoxication, uncomplicated (principal)
CPT/HCPCS: 99281-25

== ENCOUNTER 2022-03-11 22:05 | Emergency (ER) | payer OTHER ==
[2022-03-11 22:14] VITALS: BP 115/79; PULSE 88; RESP 18; TEMP 97.5; BMI 33.0
[2022-03-11 23:20] LABS: BASO % 0.8 % (0-2.0); HEMATOCRIT 31.3 % (35.4-49); HEMOGLOBIN 9.8 GM/dL (11.7-16.9); LYMPH % 27.3 % (8-40); MCH 24.9 pg (25.7-33.7); MCHC 31.3 g/dl (32.0-35.9); MEAN CELL VOLUME 79.4 fl (80-96); MEAN PLT VOLUME 7.3 fl (7.5-11.1); MONO % 10.3 % (3.8-10.2); NEUT % 57.6 % (42.8-82.8); PLATELET COUNT 274 10^3/uL (134-434); RBC 3.94 M/mm3 (4.00-5.60); RDW 25.2 % (11.9-15.9); WHITE BLOOD COUNT 7.3 K/mm3 (4.0-10.0)
[2022-03-11 23:43] LABS: CALCIUM 8.2 mg/dL (8.5-10.1)
[2022-03-11 23:44] LABS: ALBUMIN 2.9 g/dl (3.4-5.0); BLOOD UREA NITROGEN 4.4 mg/dL (7-18); MAGNESIUM 1.8 mg/dL (1.8-2.4)
[2022-03-11 23:47] LABS: ANISOCYTOSIS 3+; CREATININE 0.5 mg/dL (0.55-1.3); MACROCYTOSIS 0
[2022-03-11 23:49] LABS: BILIRUBIN,TOTAL 0.4 mg/dL (0.2-1); TOT PROT 6.4 g/dl (6.4-8.2)
== END 2022-03-12 06:23 | disposition home or self-care (01) ==
LOC: JER 22:05
DX: R06.02 Shortness of breath (principal); F10.920 Alcohol use, unspecified with intoxication, uncomplicated
CPT/HCPCS: 0241U-QW; 36415; 71045-TC-FY; 80053; 83735; 84484; 85025; 99285-25

== ENCOUNTER 2022-03-17 01:15 | Emergency (ER) | payer OTHER ==
[2022-03-17 01:36] VITALS: BP 126/76; PULSE 77; RESP 18; TEMP 98; BMI 32.8
== END 2022-03-17 07:13 | disposition home or self-care (01) ==
LOC: JER 01:15
DX: F10.129 Alcohol abuse with intoxication, unspecified (principal)
CPT/HCPCS: 99283-25; 99284-25

== ENCOUNTER 2022-03-23 21:51 | Emergency (ER) | payer OTHER ==
[2022-03-23 21:59] VITALS: BP 160/88; PULSE 98; RESP 18; TEMP 98.4; BMI 39.1
[2022-03-24] MEDS ORDERED: IBUPROFEN 400 MG TABLET (FP) PO ONE ×2 (02:06→02:31)
== END 2022-03-24 06:17 | disposition home or self-care (01) ==
LOC: JER 21:51
DX: M54.50 Low back pain, unspecified (principal)
CPT/HCPCS: 99283-25

== ENCOUNTER 2022-03-25 18:47 | Emergency (ER) | payer OTHER ==
[2022-03-25 19:40] VITALS: TEMP 98; BMI 39.1
[2022-03-25] MEDS ORDERED: ALBUTEROL SO4 2.5/IPRATROPIUM 0.5 INH SOL 3 ML VIAL.NEB. NEB ONE (20:00)
[2022-03-25] MEDS: ALBUTEROL SO4 2.5/IPRATROPIUM 0.5 INH SOL 3 ML VIAL.NEB. NEB SCH ×2 (20:23→20:35)
[2022-03-26 06:37] VITALS: BP 130/70; PULSE 90; RESP 18
== END 2022-03-26 06:37 | disposition home or self-care (01) ==
LOC: JER 18:47
PROC: 3E0F7GC Introduction of Other Therapeutic Substance into Respiratory Tract, Via Natural or Artificial Opening (ICD-10-PCS; principal; 2022-03-25)
DX: R06.02 Shortness of breath (principal); Z91.14 Patient's other noncompliance with medication regimen; Z59.00 Homelessness unspecified
CPT/HCPCS: 0241U-QW; 71045-TC-FY; 93005; 93010; 99285-25

== ENCOUNTER 2022-03-26 21:07 | Emergency (ER) | payer OTHER ==
[2022-03-26 21:14] VITALS: BP 138/78; PULSE 100; RESP 18; TEMP 97.2; BMI 41.8
== END 2022-03-27 06:24 | disposition home or self-care (01) ==
LOC: JER 21:07
DX: F10.929 Alcohol use, unspecified with intoxication, unspecified (principal); Z59.00 Homelessness unspecified
CPT/HCPCS: 99283-25

== ENCOUNTER 2022-04-01 22:58 | Emergency (ER) | payer OTHER ==
[2022-04-01 23:06] VITALS: BP 100/60; PULSE 64; RESP 19; TEMP 97.8; BMI 33.0
== END 2022-04-02 06:02 | disposition home or self-care (01) ==
LOC: JER 22:58
DX: F10.20 Alcohol dependence, uncomplicated (principal); Z59.00 Homelessness unspecified
CPT/HCPCS: 99283-25

== ENCOUNTER 2022-04-02 16:48 | Emergency (ER) | payer OTHER ==
[2022-04-02 17:06] VITALS: BP 130/86; PULSE 64; RESP 18; TEMP 97.6; BMI 31.1
== END 2022-04-02 21:56 | disposition left against medical advice (07) ==
LOC: JER 16:48
DX: F10.929 Alcohol use, unspecified with intoxication, unspecified (principal)
CPT/HCPCS: 99283-25

== ENCOUNTER 2022-04-03 22:21 | Emergency (ER) | payer OTHER ==
[2022-04-03 22:26] VITALS: BP 120/75; PULSE 102; RESP 18; TEMP 97; BMI 31.1
== END 2022-04-04 06:48 | disposition home or self-care (01) ==
LOC: JER 22:21
DX: M54.89 Other dorsalgia (principal); Z59.00 Homelessness unspecified
CPT/HCPCS: 99283-25

== ENCOUNTER 2022-04-09 20:01 | Emergency (ER) | payer OTHER ==
[2022-04-09 20:36] VITALS: BMI 25.0
[2022-04-10 06:18] VITALS: BP 116/84; PULSE 82; RESP 18; TEMP 97.7
== END 2022-04-10 06:27 | disposition home or self-care (01) ==
LOC: JER 20:01
DX: K59.00 Constipation, unspecified (principal)
CPT/HCPCS: 99282-25

== ENCOUNTER 2022-04-10 18:21 | Observation (INO) | payer OTHER ==
[2022-04-11] MEDS ORDERED: ACETAMINOPHEN 325 MG TABLET (FP) PO ONE (06:04)
[2022-04-11] MEDS ORDERED: ACETAMINOPHEN 500 MG TABLET (FP) ONE (06:14)
[2022-04-11] MEDS: ALBUTEROL SO4 2.5/IPRATROPIUM 0.5 INH SOL 3 ML VIAL.NEB. NEB SCH ×4 (06:16→07:53)
[2022-04-11] MEDS ORDERED: ALBUTEROL SO4 2.5/IPRATROPIUM 0.5 INH SOL 3 ML VIAL.NEB. NEB ONE (07:44)
[2022-04-11] MEDS ORDERED: chlordiazePOXIDE HCL 25 MG CAPSULE PO ONE ×2 (14:58→18:03)
[2022-04-11 15:26] LABS: BASO % 1.3 % (0-2.0); EOS % 0.8 % (0-4.5); HEMATOCRIT 30.3 % (35.4-49); HEMOGLOBIN 9.2 GM/dL (11.7-16.9); MCH 24.3 pg (25.7-33.7); MCHC 30.3 g/dl (32.0-35.9); MEAN CELL VOLUME 80.1 fl (80-96); MONO % 5.4 % (3.8-10.2); NEUT % 80.5 % (42.8-82.8); PLATELET COUNT 138 10^3/uL (134-434); RBC 3.78 M/mm3 (4.00-5.60); RDW 23.4 % (11.9-15.9); WHITE BLOOD COUNT 6.4 K/mm3 (4.0-10.0)
[2022-04-11] MEDS ORDERED: chlordiazePOXIDE HCL 25 MG CAPSULE ONE ×3 (15:29→23:12)
[2022-04-11 15:33] LABS: CHLORIDE 108 mmol/L (98-107); SODIUM 144 mmol/L (136-145)
[2022-04-11 15:34] LABS: ALBUMIN 2.9 g/dl (3.4-5.0)
[2022-04-11 15:35] LABS: ANION GAP 35 MMOL/L (8-16); CO2 < 1 mmol/L (21-32)
[2022-04-11 15:37] LABS: SGOT/AST 37 U/L (15-37)
[2022-04-11 15:38] LABS: SGPT/ALT < 6 U/L (13-61)
[2022-04-11 15:41] LABS: ALK PHOS 106 U/L (45-117)
[2022-04-11 15:44] LABS: CALCIUM QNS mg/dL (8.5-10.1)
[2022-04-11 15:45] LABS: ANISOCYTOSIS 3+; CREATININE QNS mg/dL (0.55-1.3); GLUCOSE,RANDOM QNS mg/dL (74-106); MACROCYTOSIS 0; OVALOCYTE 1+
[2022-04-11] MEDS ORDERED: ACETAMINOPHEN 325 MG TABLET (FP) PO PRN (18:03)
[2022-04-11] MEDS ORDERED: chlordiazePOXIDE HCL 25 MG CAPSULE PO PRN (18:06)
[2022-04-11] MEDS: chlordiazePOXIDE HCL 25 MG CAPSULE PO SCH ×2 (18:32→23:16)
[2022-04-12] MEDS ORDERED: METHOCARBAMOL 500 MG TABLET PO ONE (00:07)
[2022-04-12] MEDS ORDERED: METHOCARBAMOL 500 MG TABLET ONE (03:54)
[2022-04-12] MEDS: chlordiazePOXIDE HCL 25 MG CAPSULE PO SCH ×4 (05:03→23:25)
[2022-04-12 06:25] VITALS: BMI 38.8
[2022-04-12 11:34] VITALS: RESP 18
[2022-04-12] MEDS: ENOXAPARIN NA (PORCINE) 40 MG/0.4 ML DISP.SYRIN SQ SCH (11:45)
[2022-04-13] MEDS: chlordiazePOXIDE HCL 25 MG CAPSULE PO SCH ×4 (05:26→22:02)
[2022-04-13] MEDS: ENOXAPARIN NA (PORCINE) 40 MG/0.4 ML DISP.SYRIN SQ SCH (09:47)
[2022-04-13] MEDS: THIAMINE HCL 100 MG TABLET (FP) PO SCH ×2 (09:48→21:42)
[2022-04-13] MEDS: MULTIVITAMINS (DAILY MVI) TABLET (FP) PO SCH (09:48)
[2022-04-13] MEDS: FOLIC ACID 1 MG TABLET (FP) PO SCH (09:48)
[2022-04-13 10:11] LABS: BASO % 0.6 % (0-2.0); EOS % 4.1 % (0-4.5); HEMATOCRIT 31.3 % (35.4-49); HEMOGLOBIN 9.9 GM/dL (11.7-16.9); LYMPH % 15.5 % (8-40); MCH 24.4 pg (25.7-33.7); MCHC 31.6 g/dl (32.0-35.9); MEAN CELL VOLUME 77.3 fl (80-96); MEAN PLT VOLUME 7.5 fl (7.5-11.1); MONO % 6.5 % (3.8-10.2); NEUT % 73.3 % (42.8-82.8); PLATELET COUNT 199 10^3/uL (134-434); RBC 4.05 M/mm3 (4.00-5.60); RDW 22.8 % (11.9-15.9); WHITE BLOOD COUNT 7.1 K/mm3 (4.0-10.0)
[2022-04-13 10:25] LABS: CHLORIDE 104 mmol/L (98-107); SODIUM 141 mmol/L (136-145)
[2022-04-13 10:28] LABS: ALBUMIN 2.9 g/dl (3.4-5.0); BLOOD UREA NITROGEN 3.8 mg/dL (7-18); CALCIUM 8.2 mg/dL (8.5-10.1); CO2 28 mmol/L (21-32); GLUCOSE,RANDOM 103 mg/dL (74-106); MAGNESIUM 1.3 mg/dL (1.8-2.4)
[2022-04-13 10:31] LABS: CREATININE 0.5 mg/dL (0.55-1.3); PHOSPHOROUS 2.4 mg/dL (2.5-4.9); SGOT/AST 23 U/L (15-37); SGPT/ALT 17 U/L (13-61)
[2022-04-13 10:33] LABS: BILIRUBIN,TOTAL 0.9 mg/dL (0.2-1)
[2022-04-13 10:34] LABS: ALK PHOS 103 U/L (45-117)
[2022-04-13 10:48] LABS: ANION GAP 9 MMOL/L (8-16)
[2022-04-13] MEDS ORDERED: MAGNESIUM SULF 50% (8.12 MEQ/2 ML-1 GM VIAL) IVPB ONE (12:04)
[2022-04-13] MEDS ORDERED: MAGNESIUM OXIDE 400 MG TABLET (FP) PO ONE (12:05)
[2022-04-13] MEDS ORDERED: NAPH,MB-DB/K PH,MBDB POWDER PACKET PO ONE (12:05)
[2022-04-13] MEDS ORDERED: METHOCARBAMOL 500 MG TABLET PO PRN (12:32)
[2022-04-14] MEDS ORDERED: chlordiazePOXIDE HCL 10 MG CAPSULE PO PRN
[2022-04-14] MEDS: chlordiazePOXIDE HCL 10 MG CAPSULE PO SCH ×4 (05:56→22:15)
[2022-04-14] MEDS ORDERED: MAGNESIUM SULF 50% (8.12 MEQ/2 ML-1 GM VIAL) IVPB ONE (07:44)
[2022-04-14] MEDS: MULTIVITAMINS (DAILY MVI) TABLET (FP) PO SCH (11:08)
[2022-04-14] MEDS: FOLIC ACID 1 MG TABLET (FP) PO SCH (11:09)
[2022-04-14] MEDS: THIAMINE HCL 100 MG TABLET (FP) PO SCH ×2 (11:09→22:15)
[2022-04-14] MEDS: ENOXAPARIN NA (PORCINE) 40 MG/0.4 ML DISP.SYRIN SQ SCH (11:09)
[2022-04-14] MEDS ORDERED: POTASSIUM PHOSPHATE 30 MM in DEXTROSE 5%-WATER - 500 ML IVPB ONE (14:30)
[2022-04-15] MEDS: chlordiazePOXIDE HCL 10 MG CAPSULE PO SCH ×2 (05:41→17:32)
[2022-04-15] MEDS: ENOXAPARIN NA (PORCINE) 40 MG/0.4 ML DISP.SYRIN SQ SCH (09:32)
[2022-04-15] MEDS: MULTIVITAMINS (DAILY MVI) TABLET (FP) PO SCH (09:32)
[2022-04-15] MEDS: FOLIC ACID 1 MG TABLET (FP) PO SCH (09:32)
[2022-04-15] MEDS: THIAMINE HCL 100 MG TABLET (FP) PO SCH ×2 (09:32→21:24)
[2022-04-15 10:36] LABS: BASO % 0.7 % (0-2.0); EOS % 3.3 % (0-4.5); HEMATOCRIT 29.8 % (35.4-49); HEMOGLOBIN 9.4 GM/dL (11.7-16.9); LYMPH % 15.4 % (8-40); MCH 24.8 pg (25.7-33.7); MCHC 31.5 g/dl (32.0-35.9); MEAN CELL VOLUME 78.8 fl (80-96); MEAN PLT VOLUME 7.4 fl (7.5-11.1); MONO % 9.3 % (3.8-10.2); NEUT % 71.3 % (42.8-82.8); PLATELET COUNT 225 10^3/uL (134-434); RBC 3.78 M/mm3 (4.00-5.60); RDW 24.2 % (11.9-15.9); WHITE BLOOD COUNT 6.2 K/mm3 (4.0-10.0)
[2022-04-15 11:41] LABS: CALCIUM 8.6 mg/dL (8.5-10.1)
[2022-04-15 11:42] LABS: ALBUMIN 2.8 g/dl (3.4-5.0); BLOOD UREA NITROGEN 7.3 mg/dL (7-18); MAGNESIUM 1.3 mg/dL (1.8-2.4)
[2022-04-15 11:44] LABS: CREATININE 0.6 mg/dL (0.55-1.3)
[2022-04-15 11:45] LABS: BILIRUBIN,TOTAL 0.6 mg/dL (0.2-1); PHOSPHOROUS 3.2 mg/dL (2.5-4.9); TOT PROT 5.6 g/dl (6.4-8.2)
[2022-04-15 13:09] LABS: ANISOCYTOSIS 1+; MACROCYTOSIS 0
[2022-04-16] MEDS ORDERED: chlordiazePOXIDE HCL 10 MG CAPSULE PO ONE (05:00)
[2022-04-16 05:54] VITALS: BP 148/83; PULSE 89; TEMP 98.1
[2022-04-16] MEDS: FOLIC ACID 1 MG TABLET (FP) PO SCH (10:43)
[2022-04-16] MEDS: ENOXAPARIN NA (PORCINE) 40 MG/0.4 ML DISP.SYRIN SQ SCH (10:43)
[2022-04-16] MEDS: MULTIVITAMINS (DAILY MVI) TABLET (FP) PO SCH (10:46)
[2022-04-16] MEDS: THIAMINE HCL 100 MG TABLET (FP) PO SCH (10:46)
[2022-04-16 10:52] LABS: BASO % 0.7 % (0-2.0); EOS % 2.9 % (0-4.5); HEMATOCRIT 31.6 % (35.4-49); HEMOGLOBIN 9.8 GM/dL (11.7-16.9); LYMPH % 14.6 % (8-40); MCH 24.6 pg (25.7-33.7); MCHC 31.1 g/dl (32.0-35.9); MEAN CELL VOLUME 78.9 fl (80-96); MEAN PLT VOLUME 7.6 fl (7.5-11.1); MONO % 9.4 % (3.8-10.2); NEUT % 72.4 % (42.8-82.8); PLATELET COUNT 246 10^3/uL (134-434); RBC 4.01 M/mm3 (4.00-5.60); RDW 25.2 % (11.9-15.9); WHITE BLOOD COUNT 7.4 K/mm3 (4.0-10.0)
[2022-04-16 11:20] LABS: BLOOD UREA NITROGEN 9.2 mg/dL (7-18); CALCIUM 8.9 mg/dL (8.5-10.1); MAGNESIUM 1.6 mg/dL (1.8-2.4)
[2022-04-16 11:23] LABS: CREATININE 0.6 mg/dL (0.55-1.3)
[2022-04-16 11:24] LABS: BILIRUBIN,TOTAL 0.5 mg/dL (0.2-1)
[2022-04-16 11:25] LABS: TOT PROT 6.1 g/dl (6.4-8.2)
[2022-04-16] MEDS ORDERED: ALBUTEROL SO4 0.083% IH SOL 2.5 MG/3 ML VIAL.NEB. NEB PRN (12:57)
== END 2022-04-16 14:45 | disposition home or self-care (01) ==
LOC: JER 18:21 → INTOOBSV 04-11 17:01 → UNDOADMOB 04-11 17:01 → JERBED 04-11 17:01 → J6S 04-12 04:45
PROVIDERS: ADMIT Internal Medicine; ATTEND Internal Medicine
PROC: 3E0F7GC Introduction of Other Therapeutic Substance into Respiratory Tract, Via Natural or Artificial Opening (ICD-10-PCS; principal; 2022-04-11)
DX: R07.9 Chest pain, unspecified (principal); I48.91 Unspecified atrial fibrillation; I71.40 Abdominal aortic aneurysm, without rupture, unspecified; I10 Essential (primary) hypertension; C45.7 Mesothelioma of other sites; G89.29 Other chronic pain; M54.9 Dorsalgia, unspecified; Z59.00 Homelessness unspecified
CPT/HCPCS: 0241U-QW; 36415; 71045-TC-FY; 80053; 83735; 84100; 84484; 85025; 93005; 93010; 94640; 99285-25; G0378

== ENCOUNTER 2022-04-16 22:31 | Emergency (ER) | payer OTHER ==
[2022-04-16 22:37] VITALS: BP 98/59; PULSE 62; RESP 17; TEMP 97.6; BMI 29.8
== END 2022-04-17 06:16 | disposition home or self-care (01) ==
LOC: JER 22:31
DX: Z59.02 Unsheltered homelessness (principal)
CPT/HCPCS: 99281-25

== ENCOUNTER 2022-04-17 14:35 | Emergency (ER) | payer OTHER ==
[2022-04-17 14:55] VITALS: BMI 33.9
[2022-04-17] MEDS ORDERED: ALBUTEROL SO4 2.5/IPRATROPIUM 0.5 INH SOL 3 ML VIAL.NEB. NEB ONE ×2 (16:28→16:53)
[2022-04-17 19:16] VITALS: TEMP 98.2
[2022-04-17 23:20] VITALS: BP 100/67; PULSE 78; RESP 20
== END 2022-04-18 06:31 | disposition home or self-care (01) ==
LOC: JER 14:35
PROC: 3E0F7GC Introduction of Other Therapeutic Substance into Respiratory Tract, Via Natural or Artificial Opening (ICD-10-PCS; principal; 2022-04-17)
DX: F10.929 Alcohol use, unspecified with intoxication, unspecified (principal)
CPT/HCPCS: 99283-25

== ENCOUNTER 2022-04-18 23:18 | Emergency (ER) | payer OTHER ==
[2022-04-18 23:37] VITALS: BP 95/59; PULSE 61; RESP 17; TEMP 97.6; BMI 29.8
[2022-04-19] MEDS ORDERED: ACETAMINOPHEN 325 MG TABLET (FP) PO ONE (00:37)
[2022-04-19] MEDS ORDERED: ACETAMINOPHEN 325 MG TABLET (FP) ONE (00:50)
== END 2022-04-19 06:16 | disposition left against medical advice (07) ==
LOC: JER 23:18
DX: M54.50 Low back pain, unspecified (principal); F10.929 Alcohol use, unspecified with intoxication, unspecified
CPT/HCPCS: 93005; 93010; 99283-25

== ENCOUNTER 2022-04-19 14:36 | Emergency (ER) | payer OTHER ==
[2022-04-19 14:40] VITALS: BP 99/66; PULSE 97; RESP 18; TEMP 98.1; BMI 35.9
[2022-04-19] MEDS ORDERED: ACETAMINOPHEN 500 MG TABLET (FP) PO ONE (17:27)
[2022-04-19] MEDS ORDERED: ACETAMINOPHEN 500 MG TABLET (FP) ONE (17:41)
== END 2022-04-19 21:10 | disposition left against medical advice (07) ==
LOC: JER 14:36
DX: F10.129 Alcohol abuse with intoxication, unspecified (principal)
CPT/HCPCS: 99283-25

== ENCOUNTER 2022-04-23 20:08 | Emergency (ER) | payer OTHER ==
[2022-04-23 20:56] VITALS: BP 95/61; PULSE 61; RESP 17; TEMP 97.6; BMI 29.8
== END 2022-04-24 00:30 | disposition home or self-care (01) ==
LOC: JER 20:08
DX: Z59.00 Homelessness unspecified (principal)
CPT/HCPCS: 99281-25

== ENCOUNTER 2022-04-24 14:27 | Emergency (ER) | payer OTHER ==
[2022-04-24 15:13] VITALS: BP 119/62; PULSE 89; RESP 22; TEMP 98.1; BMI 35.2
== END 2022-04-24 20:12 | disposition home or self-care (01) ==
LOC: JER 14:27
DX: S02.2XXA Fracture of nasal bones, initial encounter for closed fracture (principal); S00.83XA Contusion of other part of head, initial encounter; W19.XXXA Unspecified fall, initial encounter
CPT/HCPCS: 70450-TC; 70486-TC; 72125-TC; 99284-25

== ENCOUNTER 2022-04-24 23:50 | Emergency (ER) | payer OTHER ==
[2022-04-24 23:57] VITALS: BP 112/66; PULSE 90; RESP 18; TEMP 97.4; BMI 33.0
[2022-04-25] MEDS ORDERED: FAMOTIDINE 10 MG TABLET PO ONE (05:57)
[2022-04-25] MEDS ORDERED: SUCRALFATE 1 GM TABLET (FP) PO ONE (05:57)
[2022-04-25] MEDS ORDERED: MAG HYDROX/AL HYDROX/SIMETH -MYLANTA- ORAL SUSPENSION PO ONE (05:57)
[2022-04-25] MEDS ORDERED: MAG HYDROX/AL HYDROX/SIMETH 30 ML UNIT-DOSE CUP ONE (06:01)
[2022-04-25] MEDS ORDERED: SUCRALFATE 1 GM TABLET (FP) ONE (06:01)
[2022-04-25] MEDS ORDERED: FAMOTIDINE 20 MG TABLET ONE (06:01)
== END 2022-04-25 06:54 | disposition home or self-care (01) ==
LOC: JER 23:50
DX: R10.13 Epigastric pain (principal)
CPT/HCPCS: 99283-25

== ENCOUNTER 2022-04-25 21:55 | Emergency (ER) | payer OTHER ==
[2022-04-25 22:07] VITALS: BMI 37.0
[2022-04-26] MEDS ORDERED: METHOCARBAMOL 500 MG TABLET PO ONE (00:45)
[2022-04-26] MEDS ORDERED: LIDOCAINE 5% TOPICAL PATCH TP ONE (00:46)
[2022-04-26] MEDS ORDERED: LIDOCAINE 5% TOPICAL PATCH ONE (00:55)
[2022-04-26] MEDS ORDERED: METHOCARBAMOL 500 MG TABLET ONE (00:55)
[2022-04-26 06:31] VITALS: BP 98/61; PULSE 60; RESP 18; TEMP 97.6
[2022-04-26] MEDS ORDERED: LIDOCAINE PATCH REMOVAL MC SCH (22:00)
== END 2022-04-26 02:45 | disposition home or self-care (01) ==
LOC: JER 21:55
DX: F10.920 Alcohol use, unspecified with intoxication, uncomplicated (principal)
CPT/HCPCS: 99283-25

== ENCOUNTER 2022-04-26 15:35 | Emergency (ER) | payer OTHER ==
[2022-04-26 15:39] VITALS: BMI 37.9
[2022-04-27 02:12] VITALS: RESP 20
[2022-04-27 05:05] VITALS: BP 150/80; PULSE 101; TEMP 98.8
== END 2022-04-27 06:52 | disposition home or self-care (01) ==
LOC: JER 15:35
DX: F10.920 Alcohol use, unspecified with intoxication, uncomplicated (principal)
CPT/HCPCS: 99281-25

== ENCOUNTER 2022-04-28 15:30 | Emergency (ER) | payer OTHER ==
[2022-04-28 16:07] VITALS: BP 138/85; PULSE 94; RESP 20; TEMP 97.5; BMI 31.5
== END 2022-04-28 20:58 | disposition left against medical advice (07) ==
LOC: JER 15:30
DX: F10.129 Alcohol abuse with intoxication, unspecified (principal)
CPT/HCPCS: 99281-25

== ENCOUNTER 2022-05-01 17:29 | Emergency (ER) | payer OTHER ==
[2022-05-01 18:13] VITALS: BP 116/71; PULSE 99; RESP 18; TEMP 97.6; BMI 38.7
== END 2022-05-02 06:38 | disposition home or self-care (01) ==
LOC: JER 17:29
DX: M54.89 Other dorsalgia (principal)
CPT/HCPCS: 99283-25

== ENCOUNTER 2022-05-02 11:48 | Emergency (ER) | payer OTHER ==
[2022-05-02 12:04] VITALS: BP 130/80; PULSE 69; RESP 19; TEMP 98.9; BMI 40.3
[2022-05-02] MEDS ORDERED: METHOCARBAMOL 500 MG TABLET PO ONE (12:48)
[2022-05-02] MEDS ORDERED: METHOCARBAMOL 500 MG TABLET ONE (12:57)
[2022-05-02] MEDS ORDERED: THIAMINE HCL 200 MG/2 ML VIAL IM ONE (13:04)
[2022-05-02] MEDS ORDERED: THIAMINE HCL 200 MG/2 ML VIAL ONE (13:10)
== END 2022-05-02 19:40 | disposition home or self-care (01) ==
LOC: JER 11:48 → JERFT 11:48
PROC: 3E023NZ Introduction of Analgesics, Hypnotics, Sedatives into Muscle, Percutaneous Approach (ICD-10-PCS; principal; 2022-05-02)
DX: M54.9 Dorsalgia, unspecified (principal); M25.561 Pain in right knee; M25.562 Pain in left knee
CPT/HCPCS: 99283-25

== ENCOUNTER 2022-05-06 18:34 | Emergency (ER) | payer OTHER ==
[2022-05-06 19:08] VITALS: BMI 41.8
[2022-05-07 00:53] VITALS: BP 124/78; PULSE 85; RESP 17; TEMP 98.5
== END 2022-05-07 06:16 | disposition home or self-care (01) ==
LOC: JER 18:34
DX: Z59.00 Homelessness unspecified (principal)
CPT/HCPCS: 99281-25

== ENCOUNTER 2022-05-10 20:18 | Emergency (ER) | payer OTHER ==
[2022-05-10 20:37] VITALS: BP 115/65; PULSE 93; RESP 18; TEMP 97.4; BMI 39.2
[2022-05-10] MEDS ORDERED: METHOCARBAMOL 500 MG TABLET PO ONE (23:28)
[2022-05-10] MEDS ORDERED: THIAMINE HCL 200 MG/2 ML VIAL IM ONE (23:30)
[2022-05-11] MEDS ORDERED: THIAMINE HCL 200 MG/2 ML VIAL ONE (00:21)
[2022-05-11] MEDS ORDERED: METHOCARBAMOL 500 MG TABLET ONE (00:21)
== END 2022-05-11 10:52 | disposition home or self-care (01) ==
LOC: JER 20:18
DX: F10.129 Alcohol abuse with intoxication, unspecified (principal); M54.50 Low back pain, unspecified
CPT/HCPCS: 99283-25

== ENCOUNTER 2022-05-11 18:48 | Emergency (ER) | payer OTHER ==
[2022-05-11] MEDS ORDERED: METHOCARBAMOL 500 MG TABLET PO ONE (19:17)
[2022-05-11 20:09] VITALS: BP 115/64; PULSE 97; RESP 18; TEMP 97.4; BMI 37.4
[2022-05-11] MEDS ORDERED: METHOCARBAMOL 500 MG TABLET ONE (20:29)
== END 2022-05-12 06:42 | disposition home or self-care (01) ==
LOC: JER 18:48
DX: M54.9 Dorsalgia, unspecified (principal)
CPT/HCPCS: 99283-25

== ENCOUNTER 2022-05-12 20:22 | Emergency (ER) | payer OTHER ==
[2022-05-12 21:24] VITALS: BP 141/75; PULSE 92; RESP 19; TEMP 97.9; BMI 23.5
== END 2022-05-13 06:46 | disposition home or self-care (01) ==
LOC: JER 20:22
DX: Z59.00 Homelessness unspecified (principal)
CPT/HCPCS: 99281-25

== ENCOUNTER 2022-05-14 20:16 | Emergency (ER) | payer OTHER ==
[2022-05-14 20:52] VITALS: BP 146/77; PULSE 98; RESP 19; TEMP 98.5; BMI 32.8
== END 2022-05-15 06:32 | disposition home or self-care (01) ==
LOC: JER 20:16
DX: Z59.00 Homelessness unspecified (principal)
CPT/HCPCS: 99281-25

== ENCOUNTER 2022-05-16 16:36 | Emergency (ER) | payer OTHER ==
[2022-05-16 17:28] VITALS: TEMP 97.2; BMI 44.6
[2022-05-16] MEDS ORDERED: ACETAMINOPHEN 325 MG TABLET (FP) PO ONE (18:53)
[2022-05-16] MEDS ORDERED: ACETAMINOPHEN 325 MG TABLET (FP) ONE (19:27)
[2022-05-16 19:49] VITALS: BP 132/84; PULSE 97; RESP 22
== END 2022-05-17 07:08 | disposition home or self-care (01) ==
LOC: JER 16:36
DX: F10.920 Alcohol use, unspecified with intoxication, uncomplicated (principal); G89.29 Other chronic pain
CPT/HCPCS: 0241U-QW; 71045-TC-FY; 93005; 93010; 99285-25

== ENCOUNTER 2022-05-25 23:25 | Emergency (ER) | payer OTHER ==
[2022-05-26 00:27] VITALS: BMI 35.9
[2022-05-26 03:36] VITALS: BP 122/68; PULSE 99; RESP 18; TEMP 97.6
== END 2022-05-26 07:42 | disposition home or self-care (01) ==
LOC: JER 23:25
DX: F10.20 Alcohol dependence, uncomplicated (principal); M54.50 Low back pain, unspecified
CPT/HCPCS: 99281-25

== ENCOUNTER 2022-05-28 15:30 | Emergency (ER) | payer OTHER ==
[2022-05-28 16:01] VITALS: BP 115/77; PULSE 97; RESP 20; TEMP 98.3; BMI 35.9
== END 2022-05-28 19:18 | disposition left against medical advice (07) ==
LOC: JER 15:30
DX: M54.50 Low back pain, unspecified (principal)
CPT/HCPCS: 99281-25

== ENCOUNTER 2022-05-29 15:00 | Emergency (ER) | payer OTHER ==
[2022-05-29 16:31] VITALS: BP 117/64; PULSE 93; RESP 18; TEMP 97.9; BMI 36.0
[2022-05-29] MEDS ORDERED: METHOCARBAMOL 750 MG TABLET PO ONE (17:06)
[2022-05-29] MEDS ORDERED: chlordiazePOXIDE HCL 25 MG CAPSULE PO ONE ×2 (17:06→18:55)
[2022-05-29] MEDS ORDERED: METHOCARBAMOL 500 MG TABLET ONE (17:27)
[2022-05-29] MEDS ORDERED: chlordiazePOXIDE HCL 25 MG CAPSULE ONE (17:27)
== END 2022-05-29 23:38 | disposition home or self-care (01) ==
LOC: JERFT 15:00 → JER 15:00 → JERFT 23:38
DX: M54.50 Low back pain, unspecified (principal)
CPT/HCPCS: 99283-25

== ENCOUNTER 2022-05-30 17:36 | Emergency (ER) | payer OTHER ==
[2022-05-30 17:42] VITALS: BP 130/75; PULSE 85; RESP 18; TEMP 97.5; BMI 33.0
== END 2022-05-30 22:53 | disposition home or self-care (01) ==
LOC: JER 17:36
DX: T73.0XXA Starvation, initial encounter (principal)
CPT/HCPCS: 99281-25

== ENCOUNTER 2022-06-18 22:47 | Emergency (ER) | payer OTHER ==
[2022-06-18 22:56] VITALS: BP 98/65; PULSE 61; RESP 17; TEMP 97.6; BMI 34.4
== END 2022-06-19 05:00 | disposition home or self-care (01) ==
LOC: JER 22:47
DX: M54.9 Dorsalgia, unspecified (principal); Z59.00 Homelessness unspecified
CPT/HCPCS: 99282-25

== ENCOUNTER 2022-06-20 15:44 | Emergency (ER) | payer OTHER ==
[2022-06-20 15:58] VITALS: BP 136/77; PULSE 89; RESP 18; TEMP 97.5; BMI 34.4
[2022-06-20] MEDS ORDERED: METHOCARBAMOL 500 MG TABLET PO ONE (17:25)
[2022-06-20] MEDS ORDERED: METHOCARBAMOL 500 MG TABLET ONE (20:42)
== END 2022-06-21 06:52 | disposition home or self-care (01) ==
LOC: JER 15:44
DX: M54.50 Low back pain, unspecified (principal)
CPT/HCPCS: 99283-25

== ENCOUNTER 2022-06-22 14:21 | Emergency (ER) | payer OTHER ==
[2022-06-22 14:24] VITALS: BP 128/74; PULSE 96; RESP 18; TEMP 97.5; BMI 38.7
[2022-06-22] MEDS ORDERED: ACETAMINOPHEN 325 MG TABLET (FP) PO ONE (20:29)
== END 2022-06-22 21:43 | disposition left against medical advice (07) ==
LOC: JER 14:21 → JERFT 14:21
DX: F10.920 Alcohol use, unspecified with intoxication, uncomplicated (principal); M54.50 Low back pain, unspecified
CPT/HCPCS: 99283-25

== ENCOUNTER 2022-06-24 16:07 | Emergency (ER) | payer OTHER ==
[2022-06-24 16:35] VITALS: BP 120/69; PULSE 89; RESP 20; TEMP 98; BMI 29.5
== END 2022-06-24 21:27 | disposition left against medical advice (07) ==
LOC: JER 16:07 → JERFT 16:07
DX: F10.920 Alcohol use, unspecified with intoxication, uncomplicated (principal)
CPT/HCPCS: 99281-25

== ENCOUNTER 2022-06-25 22:11 | Emergency (ER) | payer OTHER ==
[2022-06-25 22:25] VITALS: BP 128/80; PULSE 68; RESP 15; TEMP 97.5; BMI 35.4
== END 2022-06-26 00:30 | disposition home or self-care (01) ==
LOC: JER 22:11
DX: R68.89 Other general symptoms and signs (principal); Z59.00 Homelessness unspecified
CPT/HCPCS: 99283-25

== ENCOUNTER 2022-06-26 20:48 | Emergency (ER) | payer OTHER ==
[2022-06-26 21:36] VITALS: BP 125/79; PULSE 83; RESP 18; TEMP 98.1; BMI 35.4
[2022-06-26] MEDS ORDERED: IBUPROFEN 400 MG TABLET (FP) PO ONE ×2 (22:24→22:27)
== END 2022-06-27 06:59 | disposition home or self-care (01) ==
LOC: JER 20:48
DX: M25.561 Pain in right knee (principal); M25.562 Pain in left knee; M54.50 Low back pain, unspecified; F10.10 Alcohol abuse, uncomplicated
CPT/HCPCS: 99283-25

== ENCOUNTER 2022-06-27 12:46 | Emergency (ER) | payer OTHER ==
[2022-06-27 13:14] VITALS: BP 119/65; PULSE 65; RESP 20; BMI 34.0
== END 2022-06-27 15:11 | disposition home or self-care (01) ==
LOC: JER 12:46 → JERFT 12:46
DX: F10.929 Alcohol use, unspecified with intoxication, unspecified (principal)
CPT/HCPCS: 99283-25

== ENCOUNTER 2022-06-27 17:43 | Emergency (ER) | payer OTHER ==
[2022-06-27 17:50] VITALS: BP 130/72; PULSE 74; RESP 18; TEMP 97; BMI 34.8
[2022-06-27] MEDS ORDERED: METHOCARBAMOL 500 MG TABLET PO ONE (19:20)
[2022-06-27] MEDS ORDERED: METHOCARBAMOL 500 MG TABLET ONE (19:42)
== END 2022-06-27 20:36 | disposition home or self-care (01) ==
LOC: JER 17:43
DX: M54.6 Pain in thoracic spine (principal)
CPT/HCPCS: 99283-25

== ENCOUNTER 2022-07-01 14:48 | Inpatient (IN) | payer OTHER ==
[2022-07-01 16:50] VITALS: BMI 34.4
[2022-07-01] MEDS ORDERED: guaiFENesin 200 MG/10 ML 10 ML UNIT-DOSE CUPS PO PRN (17:08)
[2022-07-01] MEDS ORDERED: POLYETHYLENE GLYCOL (HEALTHYLAX) 3350 17 GM PACKET PO PRN (17:08)
[2022-07-01] MEDS ORDERED: IBUPROFEN 400 MG TABLET (FP) PO PRN (17:08)
[2022-07-01] MEDS ORDERED: LOPERAMIDE HCL 2 MG CAPSULE PO PRN (17:08)
[2022-07-01] MEDS ORDERED: MAGNESIUM HYDROX 2400MG/30ML ORAL SUSPENSION 30 ML CUP PO PRN (17:08)
[2022-07-01] MEDS ORDERED: P-EPHED 60MG/TRIPROLIDI 2.5MG TABLET PO PRN (17:08)
[2022-07-01] MEDS ORDERED: MAG HYDROX/AL HYDROX/SIMETH 30 ML UNIT-DOSE CUP PO PRN (17:08)
[2022-07-01] MEDS ORDERED: ONDANSETRON *ODT* 4 MG TABLET SL PRN (17:08)
[2022-07-01] MEDS ORDERED: IBUPROFEN 600 MG TABLET (FP) PO PRN (17:08)
[2022-07-01] MEDS ORDERED: BENZOCAINE/MENTHOL (CHLORASEPTIC ) LOZENGE MM PRN (17:08)
[2022-07-01] MEDS ORDERED: ACETAMINOPHEN 325 MG TABLET (FP) PO PRN ×2 (17:08)
[2022-07-01] MEDS ORDERED: BISMUTH SUBSALICYLATE 524 MG/30 ML PO PRN (17:08)
[2022-07-01] MEDS ORDERED: DICYCLOMINE HCL 10 MG CAPSULE PO PRN (17:08)
[2022-07-01] MEDS ORDERED: chlordiazePOXIDE HCL 25 MG CAPSULE PO PRN (17:28)
[2022-07-01] MEDS ORDERED: METOPROLOL TARTRATE 25 MG TABLET (FP) PO ONE ×2 (17:29→19:45)
[2022-07-01] MEDS: THIAMINE HCL 100 MG TABLET (FP) PO SCH (22:11)
[2022-07-01] MEDS: chlordiazePOXIDE HCL 25 MG CAPSULE PO SCH (22:12)
[2022-07-02] MEDS: chlordiazePOXIDE HCL 25 MG CAPSULE PO SCH ×4 (05:32→22:30)
[2022-07-02] MEDS ORDERED: PRENATAL VITAMINS W/ FOLIC ACID TABLET (FP) PO SCH (10:00)
[2022-07-02 10:26] LABS: HEMATOCRIT 31.6 % (35.4-49); HEMOGLOBIN 9.8 GM/dL (11.7-16.9); MCHC 31.2 g/dl (32.0-35.9); MEAN CELL VOLUME 70.7 fl (80-96); MEAN PLT VOLUME 7.7 fl (7.5-11.1); PLATELET COUNT 136 10^3/uL (134-434); RBC 4.47 M/mm3 (4.00-5.60); RDW 20.5 % (11.9-15.9); WHITE BLOOD COUNT 5.6 K/mm3 (4.0-10.0)
[2022-07-02 10:54] LABS: CHLORIDE 99 mmol/L (98-107); SODIUM 138 mmol/L (136-145)
[2022-07-02 10:57] LABS: BLOOD UREA NITROGEN 5.6 mg/dL (7-18); GLUCOSE,RANDOM 77 mg/dL (74-106)
[2022-07-02 10:58] LABS: CALCIUM 7.9 mg/dL (8.5-10.1)
[2022-07-02 10:59] LABS: CO2 30 mmol/L (21-32)
[2022-07-02 11:00] LABS: CREATININE 0.5 mg/dL (0.55-1.3); SGOT/AST 24 U/L (15-37); SGPT/ALT 18 U/L (13-61)
[2022-07-02 11:02] LABS: BILIRUBIN,TOTAL 1.9 mg/dL (0.2-1)
[2022-07-02 11:03] LABS: ALK PHOS 107 U/L (45-117)
[2022-07-02 11:07] LABS: ANION GAP 9 MMOL/L (8-16)
[2022-07-02] MEDS ORDERED: POTASSIUM CHLORIDE ORAL LIQUID 20 MEQ/15 ML PO ONE ×2 (15:30→19:30)
[2022-07-02] MEDS: FERROUS SO4 325 MG TABLET (FP) PO SCH (17:35)
[2022-07-02 21:11] VITALS: RESP 18
[2022-07-02] MEDS ORDERED: CALCIUM 250MG/VIT-D 125 UNITS 1 COMBO TABLET PO SCH (22:00)
[2022-07-02] MEDS: THIAMINE HCL 100 MG TABLET (FP) PO SCH (22:42)
[2022-07-03] MEDS ORDERED: chlordiazePOXIDE HCL 25 MG CAPSULE PO SCH (05:00)
[2022-07-03 06:28] VITALS: BP 139/83; PULSE 70; TEMP 97.8
[2022-07-03] MEDS: FERROUS SO4 325 MG TABLET (FP) PO SCH (08:05)
[2022-07-04] MEDS ORDERED: chlordiazePOXIDE HCL 10 MG CAPSULE PO PRN
[2022-07-04] MEDS ORDERED: chlordiazePOXIDE HCL 10 MG CAPSULE PO SCH (05:00)
[2022-07-05] MEDS ORDERED: chlordiazePOXIDE HCL 10 MG CAPSULE PO SCH (05:00)
[2022-07-06] MEDS ORDERED: chlordiazePOXIDE HCL 10 MG CAPSULE PO ONE (05:00)
== END 2022-07-03 10:30 | disposition left against medical advice (07) | DRG 894 ==
LOC: YASAS 14:48 → Y6N 18:08
PROVIDERS: ADMIT Allergy & Immunology; ATTEND Surgery
PROC: HZ2ZZZZ Detoxification Services for Substance Abuse Treatment (ICD-10-PCS; principal; 2022-07-01)
DX: F10.230 Alcohol dependence with withdrawal, uncomplicated (principal); D64.9 Anemia, unspecified; J44.9 Chronic obstructive pulmonary disease, unspecified; K74.60 Unspecified cirrhosis of liver; K21.9 Gastro-esophageal reflux disease without esophagitis; R26.2 Difficulty in walking, not elsewhere classified; Z56.0 Unemployment, unspecified; Z59.02 Unsheltered homelessness; Z86.16 Personal history of COVID-19; Z28.310 Unvaccinated for COVID-19; Z28.21 Immunization not carried out because of patient refusal
CPT/HCPCS: 36415; 80053; 84132; 85027; 86780; C9803-CS; U0003; U0005

== ENCOUNTER 2022-07-03 16:39 | Emergency (ER) | payer OTHER ==
[2022-07-03 16:59] VITALS: BP 114/68; PULSE 75; RESP 20; TEMP 97.2; BMI 33.2
== END 2022-07-03 22:49 | disposition left against medical advice (07) ==
LOC: JER 16:39
DX: M54.50 Low back pain, unspecified (principal)
CPT/HCPCS: 99281-25

== ENCOUNTER 2022-07-05 18:01 | Emergency (ER) | payer OTHER ==
[2022-07-05 18:55] VITALS: BP 120/70; PULSE 82; RESP 16; TEMP 97.3; BMI 45.8
== END 2022-07-06 06:15 | disposition home or self-care (01) ==
LOC: JER 18:01
DX: F10.230 Alcohol dependence with withdrawal, uncomplicated (principal); Z59.00 Homelessness unspecified
CPT/HCPCS: 99281-25

== ENCOUNTER 2022-07-08 14:07 | Emergency (ER) | payer OTHER ==
[2022-07-08 14:36] VITALS: BP 137/75; PULSE 75; RESP 21; TEMP 98.4; BMI 39.9
== END 2022-07-08 21:33 | disposition home or self-care (01) ==
LOC: JER 14:07 → JERFT 14:07
DX: S80.01XA Contusion of right knee, initial encounter (principal); W01.0XXA Fall on same level from slipping, tripping and stumbling without subsequent striking against object, initial encounter
CPT/HCPCS: 73562-TC-RT-FY; 99283-25

== ENCOUNTER 2022-07-09 13:34 | Emergency (ER) | payer OTHER ==
[2022-07-09 13:55] VITALS: BP 129/75; PULSE 88; RESP 18; TEMP 99; BMI 36.8
== END 2022-07-09 15:55 | disposition left against medical advice (07) ==
LOC: JER 13:34
DX: T73.0XXA Starvation, initial encounter (principal)
CPT/HCPCS: 99283-25

== ENCOUNTER 2022-07-11 04:55 | Observation (INO) | payer OTHER ==
[2022-07-11 05:09] VITALS: BMI 36.0
[2022-07-11] MEDS ORDERED: DEXAMETHASONE SOD PHOSPHATE 4 MG/1 ML VIAL IVPUSH ONE (06:42)
[2022-07-11] MEDS ORDERED: DEXAMETHASONE SOD PHOSPHATE 10 MG/1 ML VIAL ONE (06:53)
[2022-07-11] MEDS ORDERED: ALBUTEROL SO4 2.5/IPRATROPIUM 0.5 INH SOL 3 ML VIAL.NEB. NEB ONE (06:53)
[2022-07-11 06:54] LABS: VENOUS BASE EXCESS 4.9 mmol/L (-2-2); VENOUS O2 SATURATION 79.8 % (70-80); VENOUS PCO2 46.1 mmHg (38-52); VENOUS PH 7.43 (7.310-7.410)
[2022-07-11] MEDS: ALBUTEROL SO4 2.5/IPRATROPIUM 0.5 INH SOL 3 ML VIAL.NEB. NEB SCH ×3 (07:01→10:00)
[2022-07-11 07:11] LABS: BASO % 0.9 % (0-2.0); HEMATOCRIT 30.8 % (35.4-49); HEMOGLOBIN 9.5 GM/dL (11.7-16.9); LYMPH % 21.4 % (8-40); MCH 22.6 pg (25.7-33.7); MCHC 30.7 g/dl (32.0-35.9); MEAN CELL VOLUME 73.6 fl (80-96); MEAN PLT VOLUME 7.4 fl (7.5-11.1); MONO % 7.7 % (3.8-10.2); PLATELET COUNT 305 10^3/uL (134-434); RBC 4.18 M/mm3 (4.00-5.60); RDW 23.1 % (11.9-15.9); WHITE BLOOD COUNT 7.5 K/mm3 (4.0-10.0)
[2022-07-11 07:12] LABS: CALCIUM 7.6 mg/dL (8.5-10.1)
[2022-07-11 07:14] LABS: ALBUMIN 2.7 g/dl (3.4-5.0); BLOOD UREA NITROGEN 4.7 mg/dL (7-18); MAGNESIUM 1.1 mg/dL (1.8-2.4)
[2022-07-11 07:17] LABS: BILIRUBIN,TOTAL 0.6 mg/dL (0.2-1); CREATININE 0.7 mg/dL (0.55-1.3); TOT PROT 5.8 g/dl (6.4-8.2)
[2022-07-11 07:22] LABS: N-TERMINAL BNP 217.3 pg/ml (5-125)
[2022-07-11 09:07] LABS: ANISOCYTOSIS 3+; MACROCYTOSIS 0
[2022-07-11] MEDS ORDERED: chlordiazePOXIDE HCL 25 MG CAPSULE PO ONE (09:55)
[2022-07-11] MEDS ORDERED: chlordiazePOXIDE HCL 25 MG CAPSULE ONE (09:56)
[2022-07-11] MEDS ORDERED: MAGNESIUM 2GM/50ML STERILE WATER IVPB IVPB ONE (10:50)
[2022-07-11] MEDS ORDERED: THIAMINE HCL 200 MG/2 ML VIAL IVPB ONE (10:50)
[2022-07-11] MEDS ORDERED: THIAMINE HCL 200 MG/2 ML VIAL ONE (11:23)
[2022-07-11] MEDS ORDERED: MAGNESIUM SULFATE IN WATER 2 GM/50 ML IVPB IVPB ONE (11:23)
[2022-07-11] MEDS ORDERED: POTASSIUM CHLORIDE ORAL LIQUID 20 MEQ/15 ML PO ONE (12:31)
[2022-07-11 16:32] VITALS: BP 122/78; PULSE 100; RESP 20; TEMP 98.2
[2022-07-11] MEDS ORDERED: POTASSIUM CHLORIDE TABS 20 MEQ TABLET.ER (FP) PO ONE (22:00)
[2022-07-12] MEDS ORDERED: THIAMINE HCL 200 MG/2 ML VIAL IVPB SCH (10:00)
[2022-07-12] MEDS ORDERED: ENOXAPARIN NA (PORCINE) 40 MG/0.4 ML DISP.SYRIN SQ SCH (10:00)
== END 2022-07-11 18:16 | disposition left against medical advice (07) ==
LOC: JER 04:55 → JERBED 07:57
PROVIDERS: ADMIT Internal Medicine; ATTEND Internal Medicine
PROC: 3E0F7GC Introduction of Other Therapeutic Substance into Respiratory Tract, Via Natural or Artificial Opening (ICD-10-PCS; principal; 2022-07-11)
PROC: 3E033GC Introduction of Other Therapeutic Substance into Peripheral Vein, Percutaneous Approach (ICD-10-PCS; 2022-07-11)
DX: R07.89 Other chest pain (principal); F10.99 Alcohol use, unspecified with unspecified alcohol-induced disorder; E87.6 Hypokalemia; I48.91 Unspecified atrial fibrillation; I71.40 Abdominal aortic aneurysm, without rupture, unspecified; K21.9 Gastro-esophageal reflux disease without esophagitis; E78.5 Hyperlipidemia, unspecified; G89.29 Other chronic pain; C45.7 Mesothelioma of other sites; Z91.013 Allergy to seafood; I10 Essential (primary) hypertension; Z29.8 Encounter for other specified prophylactic measures
CPT/HCPCS: 0241U-QW; 36415; 71045-TC-FY; 80053; 82803; 83690; 83735; 83880; 84484; 85025; 87040; 94640; 96374; 96375; 99285-25; G0378

== ENCOUNTER 2022-07-11 20:16 | Emergency (ER) | payer OTHER ==
[2022-07-11 20:27] VITALS: BP 161/77; PULSE 100; RESP 18; TEMP 98; BMI 36.0
[2022-07-12] MEDS ORDERED: chlordiazePOXIDE HCL 25 MG CAPSULE PO ONE (05:40)
[2022-07-12] MEDS ORDERED: METHOCARBAMOL 500 MG TABLET PO ONE (05:42)
[2022-07-12] MEDS ORDERED: chlordiazePOXIDE HCL 25 MG CAPSULE ONE (05:57)
[2022-07-12] MEDS ORDERED: METHOCARBAMOL 500 MG TABLET ONE (05:58)
[2022-07-12] MEDS ORDERED: POTASSIUM CHLORIDE TABS 20 MEQ TABLET.ER (FP) PO ONE ×2 (06:17→06:25)
== END 2022-07-12 08:30 | disposition left against medical advice (07) ==
LOC: JER 20:16
DX: R06.02 Shortness of breath (principal); M54.50 Low back pain, unspecified
CPT/HCPCS: 99283-25

== ENCOUNTER 2022-07-13 02:50 | Emergency (ER) | payer OTHER ==
[2022-07-13 02:58] VITALS: BMI 29.9
[2022-07-13 11:32] VITALS: RESP 20; TEMP 97.9
[2022-07-13 14:29] LABS: BASO % 0.7 % (0-2.0); EOS % 1.4 % (0-4.5); HEMATOCRIT 32.1 % (35.4-49); HEMOGLOBIN 9.7 GM/dL (11.7-16.9); LYMPH % 20.8 % (8-40); MCH 22.6 pg (25.7-33.7); MCHC 30.2 g/dl (32.0-35.9); MEAN CELL VOLUME 74.6 fl (80-96); MEAN PLT VOLUME 7.4 fl (7.5-11.1); MONO % 7.1 % (3.8-10.2); PLATELET COUNT 411 10^3/uL (134-434); RBC 4.31 M/mm3 (4.00-5.60); RDW 23.1 % (11.9-15.9); WHITE BLOOD COUNT 10.7 K/mm3 (4.0-10.0)
[2022-07-13 14:35] LABS: INR 1.11 (0.83-1.09); PROTHROMBIN TIME (PATIENT) 12.8 SEC (9.7-13.0)
[2022-07-13 14:38] LABS: ACTIVATED PTT 26.6 SECONDS (25.2-36.5)
[2022-07-13 14:43] LABS: BLOOD UREA NITROGEN 14.2 mg/dL (7-18); CALCIUM 8.2 mg/dL (8.5-10.1)
[2022-07-13 14:44] LABS: ALBUMIN 2.9 g/dl (3.4-5.0)
[2022-07-13 14:47] LABS: CREATININE 0.8 mg/dL (0.55-1.3)
[2022-07-13 14:48] LABS: BILIRUBIN,TOTAL 0.7 mg/dL (0.2-1); TOT PROT 6.1 g/dl (6.4-8.2)
[2022-07-13 18:03] VITALS: BP 132/91; PULSE 90
== END 2022-07-13 20:26 | disposition home or self-care (01) ==
LOC: JER 02:50
DX: R06.02 Shortness of breath (principal); R07.9 Chest pain, unspecified
CPT/HCPCS: 36415; 71250-TC; 80053; 84484; 85025; 85610; 85730; 86850; 86900; 86901; 93005; 93010; 99285-25

== ENCOUNTER 2022-07-15 05:19 | Emergency (ER) | payer OTHER ==
[2022-07-15 05:22] VITALS: BP 144/90; PULSE 92; RESP 15; TEMP 98.3; BMI 39.4
== END 2022-07-15 08:39 | disposition home or self-care (01) ==
LOC: JER 05:19 → JERFT 05:19
DX: I71.21 Aneurysm of the ascending aorta, without rupture (principal)
CPT/HCPCS: 99281-25

== ENCOUNTER 2022-07-16 16:36 | Emergency (ER) | payer OTHER ==
[2022-07-16 17:34] VITALS: BP 117/69; PULSE 93; RESP 17; TEMP 97.6; BMI 37.8
== END 2022-07-16 19:23 | disposition left against medical advice (07) ==
LOC: JER 16:36
DX: F10.129 Alcohol abuse with intoxication, unspecified (principal)
CPT/HCPCS: 99281-25

== ENCOUNTER 2022-07-21 18:25 | Emergency (ER) | payer OTHER ==
[2022-07-21 18:56] VITALS: RESP 18; BMI 36.6
[2022-07-22 06:10] VITALS: BP 125/66; PULSE 86; TEMP 97.9
== END 2022-07-22 06:35 | disposition home or self-care (01) ==
LOC: JER 18:25
DX: Z59.00 Homelessness unspecified (principal)
CPT/HCPCS: 99281-25

== ENCOUNTER 2022-07-22 13:35 | Emergency (ER) | payer OTHER ==
[2022-07-22 13:47] VITALS: BP 123/71; PULSE 84; RESP 20; TEMP 97.8; BMI 41.5
[2022-07-22] MEDS ORDERED: DIPHTH,PERTUSS(ACELL),TET 0.5 ML DISP.SYRIN IM ONE ×2 (14:21→15:11)
== END 2022-07-22 15:00 | disposition left against medical advice (07) ==
LOC: JER 13:35
PROC: 3E0234Z Introduction of Serum, Toxoid and Vaccine into Muscle, Percutaneous Approach (ICD-10-PCS; principal; 2022-07-22)
DX: S09.90XA Unspecified injury of head, initial encounter (principal); F10.10 Alcohol abuse, uncomplicated; W01.0XXA Fall on same level from slipping, tripping and stumbling without subsequent striking against object, initial encounter
CPT/HCPCS: 90471; 90715; 99282-25

== ENCOUNTER 2022-07-24 15:26 | Emergency (ER) | payer OTHER ==
[2022-07-24 16:00] VITALS: BP 147/78; PULSE 84; RESP 23; TEMP 97.6; BMI 42.7
== END 2022-07-24 19:00 | disposition left against medical advice (07) ==
LOC: JER 15:26
DX: S09.90XA Unspecified injury of head, initial encounter (principal); F10.920 Alcohol use, unspecified with intoxication, uncomplicated; W01.0XXA Fall on same level from slipping, tripping and stumbling without subsequent striking against object, initial encounter; Z59.01 Sheltered homelessness
CPT/HCPCS: 99281-25

== ENCOUNTER 2022-07-24 19:32 | Emergency (ER) | payer OTHER ==
[2022-07-24 19:48] VITALS: BP 111/47; PULSE 99; RESP 20; TEMP 97.9; BMI 33.7
== END 2022-07-25 01:14 | disposition left against medical advice (07) ==
LOC: JER 19:32
DX: R68.89 Other general symptoms and signs (principal); W01.0XXA Fall on same level from slipping, tripping and stumbling without subsequent striking against object, initial encounter
CPT/HCPCS: 99281-25

== ENCOUNTER 2022-07-25 11:45 | Emergency (ER) | payer OTHER ==
[2022-07-25 12:01] VITALS: BP 108/62; PULSE 82; RESP 20; TEMP 98.7; BMI 33.0
== END 2022-07-25 13:44 | disposition home or self-care (01) ==
LOC: JER 11:45
DX: M54.50 Low back pain, unspecified (principal)
CPT/HCPCS: 99282-25

== ENCOUNTER 2022-07-28 08:02 | Emergency (ER) | payer OTHER ==
[2022-07-28 08:17] VITALS: BP 164/94; PULSE 102; RESP 18; TEMP 98.7; BMI 35.9
== END 2022-07-28 13:24 | disposition left against medical advice (07) ==
LOC: JER 08:02
DX: R07.9 Chest pain, unspecified (principal)
CPT/HCPCS: 93005; 93010; 99283-25

== ENCOUNTER 2022-07-30 21:51 | Emergency (ER) | payer OTHER ==
[2022-07-30 21:55] VITALS: BMI 33.0
[2022-07-31 01:49] VITALS: BP 126/84; PULSE 87; RESP 20; TEMP 98.8
== END 2022-07-31 06:23 | disposition home or self-care (01) ==
LOC: JER 21:51
DX: R68.89 Other general symptoms and signs (principal); Z59.00 Homelessness unspecified
CPT/HCPCS: 99282-25

== ENCOUNTER 2022-08-01 01:15 | Emergency (ER) | payer OTHER ==
[2022-08-01 01:21] VITALS: BP 141/80; PULSE 102; RESP 16; TEMP 98; BMI 35.9
[2022-08-01] MEDS ORDERED: METHOCARBAMOL 500 MG TABLET PO ONE (06:27)
[2022-08-01] MEDS ORDERED: METHOCARBAMOL 500 MG TABLET ONE (06:28)
== END 2022-08-01 06:40 | disposition left against medical advice (07) ==
LOC: JER 01:15
DX: F10.10 Alcohol abuse, uncomplicated (principal)
CPT/HCPCS: 99283-25

== ENCOUNTER 2022-08-01 13:59 | Emergency (ER) | payer OTHER ==
[2022-08-01 14:12] VITALS: BP 154/84; PULSE 80; RESP 18; TEMP 97.5; BMI 33.7
== END 2022-08-01 18:12 | disposition left against medical advice (07) ==
LOC: JERFT 13:59
DX: M25.562 Pain in left knee (principal); M25.561 Pain in right knee; M79.672 Pain in left foot; M79.671 Pain in right foot
CPT/HCPCS: 99281-25

== ENCOUNTER 2022-08-01 20:33 | Emergency (ER) | payer OTHER ==
[2022-08-01 20:50] VITALS: BP 121/66; PULSE 104; RESP 18; TEMP 97; BMI 33.0
[2022-08-01] MEDS ORDERED: ACETAMINOPHEN 325 MG TABLET (FP) PO ONE (21:39)
== END 2022-08-02 06:13 | disposition home or self-care (01) ==
LOC: JER 20:33
DX: M25.561 Pain in right knee (principal); M25.562 Pain in left knee
CPT/HCPCS: 99283-25

== ENCOUNTER 2022-08-02 15:44 | Emergency (ER) | payer OTHER ==
[2022-08-02 16:01] VITALS: BMI 35.9
[2022-08-03 06:18] VITALS: BP 141/94; PULSE 105; RESP 20; TEMP 98.8
== END 2022-08-03 06:40 | disposition home or self-care (01) ==
LOC: JER 15:44
DX: M54.89 Other dorsalgia (principal); M25.561 Pain in right knee; F10.929 Alcohol use, unspecified with intoxication, unspecified
CPT/HCPCS: 99283-25

== ENCOUNTER 2022-08-04 12:30 | Emergency (ER) | payer OTHER ==
[2022-08-04 12:38] VITALS: BP 142/87; PULSE 83; RESP 16; TEMP 97.8; BMI 34.4
== END 2022-08-04 13:50 | disposition home or self-care (01) ==
LOC: JER 12:30
DX: F10.10 Alcohol abuse, uncomplicated (principal); M25.561 Pain in right knee; M25.562 Pain in left knee
CPT/HCPCS: 99281-25

== ENCOUNTER 2022-08-05 14:23 | Emergency (ER) | payer OTHER ==
[2022-08-05 15:06] VITALS: BMI 32.3
[2022-08-06 01:53] VITALS: BP 97/51; PULSE 83; RESP 20; TEMP 97.9
== END 2022-08-06 06:47 | disposition home or self-care (01) ==
LOC: JER 14:23
DX: F10.929 Alcohol use, unspecified with intoxication, unspecified (principal); M25.561 Pain in right knee; M25.562 Pain in left knee
CPT/HCPCS: 93005; 93010; 99283-25

== ENCOUNTER 2022-08-06 18:15 | Emergency (ER) | payer OTHER ==
[2022-08-06 18:29] VITALS: BMI 35.9
[2022-08-07 06:36] VITALS: BP 179/88; PULSE 82; RESP 20; TEMP 97.9
== END 2022-08-07 07:03 | disposition home or self-care (01) ==
LOC: JER 18:15
DX: M54.89 Other dorsalgia (principal); Z59.00 Homelessness unspecified
CPT/HCPCS: 99282-25

== ENCOUNTER 2022-08-08 14:02 | Emergency (ER) | payer OTHER ==
[2022-08-08 14:11] VITALS: BP 101/75; PULSE 76; RESP 18; TEMP 97.4; BMI 33.0
[2022-08-08] MEDS ORDERED: ACETAMINOPHEN 325 MG TABLET (FP) PO ONE (15:50)
[2022-08-08] MEDS ORDERED: ACETAMINOPHEN 325 MG TABLET (FP) ONE (16:10)
== END 2022-08-08 18:50 | disposition left against medical advice (07) ==
LOC: JER 14:02
DX: M54.6 Pain in thoracic spine (principal)
CPT/HCPCS: 99283-25

== ENCOUNTER 2022-08-10 03:46 | Inpatient (IN) | payer OTHER ==
[2022-08-10 03:52] VITALS: BMI 34.4
[2022-08-10] MEDS ORDERED: ALBUTEROL SO4 2.5/IPRATROPIUM 0.5 INH SOL 3 ML VIAL.NEB. NEB ONE (04:42)
[2022-08-10] MEDS ORDERED: DEXAMETHASONE SOD PHOSPHATE 10 MG/1 ML VIAL IVPUSH ONE (04:46)
[2022-08-10] MEDS ORDERED: diazePAM CARPU-JECT 10 MG/2 ML DISP.SYRIN IVPUSH ONE (04:49)
[2022-08-10] MEDS ORDERED: DEXAMETHASONE SOD PHOSPHATE 10 MG/1 ML VIAL ONE (04:49)
[2022-08-10] MEDS ORDERED: diazePAM CARPU-JECT 10 MG/2 ML DISP.SYRIN ONE (04:49)
[2022-08-10] MEDS ORDERED: DIPHTH,PERTUSS(ACELL),TET 0.5 ML DISP.SYRIN IM ONE ×2 (05:15→05:33)
[2022-08-10] MEDS: ALBUTEROL SO4 2.5/IPRATROPIUM 0.5 INH SOL 3 ML VIAL.NEB. NEB SCH ×3 (05:17→07:07)
[2022-08-10 05:49] LABS: VENOUS BASE EXCESS 1.6 mmol/L (-2-2); VENOUS O2 SATURATION 97.9 % (70-80); VENOUS PCO2 37.9 mmHg (38-52); VENOUS PH 7.447 (7.310-7.410)
[2022-08-10 05:54] LABS: INR 1.11 (0.83-1.09); PROTHROMBIN TIME (PATIENT) 12.9 SEC (9.7-13.0)
[2022-08-10 05:56] LABS: ACTIVATED PTT 28.6 SECONDS (25.2-36.5)
[2022-08-10 06:06] LABS: CALCIUM 7.6 mg/dL (8.5-10.1)
[2022-08-10 06:07] LABS: ALBUMIN 2.9 g/dl (3.4-5.0); BLOOD UREA NITROGEN 7.1 mg/dL (7-18)
[2022-08-10 06:10] LABS: CREATININE 0.7 mg/dL (0.55-1.3)
[2022-08-10 06:11] LABS: BILIRUBIN,TOTAL 0.8 mg/dL (0.2-1)
[2022-08-10 06:12] LABS: TOT PROT 6.6 g/dl (6.4-8.2)
[2022-08-10 06:14] LABS: BASO % 1.1 % (0-2.0); EOS % 2.9 % (0-4.5); HEMATOCRIT 28.3 % (35.4-49); LYMPH % 27.2 % (8-40); MCH 23.3 pg (25.7-33.7); MCHC 31.7 g/dl (32.0-35.9); MEAN CELL VOLUME 73.4 fl (80-96); MEAN PLT VOLUME 7.2 fl (7.5-11.1); MONO % 7.5 % (3.8-10.2); NEUT % 61.3 % (42.8-82.8); PLATELET COUNT 208 10^3/uL (134-434); RBC 3.85 M/mm3 (4.00-5.60); WHITE BLOOD COUNT 6.3 K/mm3 (4.0-10.0)
[2022-08-10] MEDS ORDERED: CALCIUM GLUCONATE 10% - 1,000 MG/10 ML VIAL IVPB ONE (06:32)
[2022-08-10] MEDS ORDERED: CALCIUM GLUC IN NACL, ISO-OSM 1 GM/50 ML BAG IVPB ONE (07:19)
[2022-08-10 08:36] LABS: BLOOD UREA NITROGEN 6.7 mg/dL (7-18); CALCIUM 7.8 mg/dL (8.5-10.1)
[2022-08-10 08:40] LABS: CREATININE 0.6 mg/dL (0.55-1.3)
[2022-08-10] MEDS ORDERED: ACETAMINOPHEN 325 MG TABLET (FP) PO PRN (10:27)
[2022-08-10 10:36] LABS: ALBUMIN 3.1 g/dl (3.4-5.0)
[2022-08-10 10:41] LABS: BILIRUBIN,TOTAL 0.9 mg/dL (0.2-1); TOT PROT 6.3 g/dl (6.4-8.2)
[2022-08-10] MEDS ORDERED: METHOCARBAMOL 500 MG TABLET PO ONE (10:43)
[2022-08-10] MEDS ORDERED: METHOCARBAMOL 500 MG TABLET ONE (10:59)
[2022-08-10] MEDS ORDERED: chlordiazePOXIDE HCL 25 MG CAPSULE PO SCH ×2 (11:00→14:00)
[2022-08-10] MEDS ORDERED: chlordiazePOXIDE HCL 25 MG CAPSULE ONE (11:08)
[2022-08-10] MEDS: chlordiazePOXIDE HCL 25 MG CAPSULE PO SCH ×3 (11:11→22:04)
[2022-08-10] MEDS: HEPARIN NA (PORCINE) 5,000 UNITS/ML 1ML VIAL SQ SCH ×3 (14:15→22:06)
[2022-08-10] MEDS ORDERED: LORazepam 2 MG TABLET PO PRN (14:29)
[2022-08-10] MEDS ORDERED: LACTATED RINGERS SOLUTION 1,000 ML/1,000 ML INFUS.BAG IV SCH (14:30)
[2022-08-10] MEDS ORDERED: LORazepam 1 MG TABLET PO PRN (14:32)
[2022-08-10] MEDS ORDERED: LORazepam 2 MG/ML SDV VIAL IVPUSH PRN (15:39)
[2022-08-10] MEDS: amLODIPine BESYLATE 5 MG TABLET (FP) PO SCH (16:05)
[2022-08-10] MEDS ORDERED: METHOCARBAMOL 500 MG TABLET PO PRN (16:21)
[2022-08-11] MEDS: HEPARIN NA (PORCINE) 5,000 UNITS/ML 1ML VIAL SQ SCH ×4 (05:42→22:17)
[2022-08-11] MEDS: chlordiazePOXIDE HCL 25 MG CAPSULE PO SCH ×3 (06:20→22:14)
[2022-08-11] MEDS: amLODIPine BESYLATE 5 MG TABLET (FP) PO SCH (09:38)
[2022-08-11] MEDS: THIAMINE HCL 100 MG TABLET (FP) PO SCH (09:38)
[2022-08-11] MEDS: FOLIC ACID 1 MG TABLET (FP) PO SCH (09:38)
[2022-08-11 10:16] LABS: BASO % 0.2 % (0-2.0); HEMATOCRIT 30.9 % (35.4-49); HEMOGLOBIN 9.7 GM/dL (11.7-16.9); LYMPH % 9.8 % (8-40); MCHC 31.5 g/dl (32.0-35.9); MEAN PLT VOLUME 7.7 fl (7.5-11.1); MONO % 8.4 % (3.8-10.2); NEUT % 81.6 % (42.8-82.8); PLATELET COUNT 239 10^3/uL (134-434); RBC 4.23 M/mm3 (4.00-5.60); WHITE BLOOD COUNT 7.4 K/mm3 (4.0-10.0)
[2022-08-11 10:22] LABS: INR 1.16 (0.83-1.09); PROTHROMBIN TIME (PATIENT) 13.4 SEC (9.7-13.0)
[2022-08-11 10:25] LABS: ACTIVATED PTT 26.4 SECONDS (25.2-36.5)
[2022-08-11 10:46] LABS: CREATININE 0.7 mg/dL (0.55-1.3)
[2022-08-11 10:47] LABS: BILIRUBIN,TOTAL 1.3 mg/dL (0.2-1); TOT PROT 6.4 g/dl (6.4-8.2)
[2022-08-11 10:48] LABS: ALBUMIN 3.1 g/dl (3.4-5.0)
[2022-08-11 10:49] LABS: PHOSPHOROUS 2.6 mg/dL (2.5-4.9)
[2022-08-11 10:50] LABS: BLOOD UREA NITROGEN 8.6 mg/dL (7-18); CALCIUM 8.3 mg/dL (8.5-10.1)
[2022-08-11 10:51] LABS: MAGNESIUM 1.3 mg/dL (1.8-2.4)
[2022-08-11 10:59] LABS: N-TERMINAL BNP 857.2 pg/ml (5-125)
[2022-08-11] MEDS ORDERED: POTASSIUM CHLORIDE ORAL LIQUID 20 MEQ/15 ML PO ONE (13:42)
[2022-08-12] MEDS: chlordiazePOXIDE HCL 25 MG CAPSULE PO SCH (05:41)
[2022-08-12] MEDS: HEPARIN NA (PORCINE) 5,000 UNITS/ML 1ML VIAL SQ SCH ×3 (05:51→21:33)
[2022-08-12] MEDS: THIAMINE HCL 100 MG TABLET (FP) PO SCH (09:14)
[2022-08-12] MEDS: amLODIPine BESYLATE 5 MG TABLET (FP) PO SCH (09:14)
[2022-08-12] MEDS: FOLIC ACID 1 MG TABLET (FP) PO SCH (09:14)
[2022-08-12] MEDS ORDERED: ALBUTEROL SO4 0.083% IH SOL 2.5 MG/3 ML VIAL.NEB. NEB PRN (16:48)
[2022-08-12] MEDS: ALBUTEROL SO4 2.5/IPRATROPIUM 0.5 INH SOL 3 ML VIAL.NEB. NEB SCH (20:39)
[2022-08-12] MEDS: MAGNESIUM OXIDE 400 MG TABLET (FP) PO SCH (21:33)
[2022-08-12] MEDS ORDERED: chlordiazePOXIDE HCL 25 MG CAPSULE PO SCH (22:00)
[2022-08-13] MEDS: HEPARIN NA (PORCINE) 5,000 UNITS/ML 1ML VIAL SQ SCH ×3 (05:37→21:56)
[2022-08-13] MEDS ORDERED: chlordiazePOXIDE HCL 25 MG CAPSULE PO PRN (07:36)
[2022-08-13] MEDS: ALBUTEROL SO4 2.5/IPRATROPIUM 0.5 INH SOL 3 ML VIAL.NEB. NEB SCH (07:39)
[2022-08-13] MEDS: FOLIC ACID 1 MG TABLET (FP) PO SCH (11:39)
[2022-08-13] MEDS: MAGNESIUM OXIDE 400 MG TABLET (FP) PO SCH ×2 (11:52→21:56)
[2022-08-13] MEDS: THIAMINE HCL 100 MG TABLET (FP) PO SCH (11:53)
[2022-08-13] MEDS: amLODIPine BESYLATE 5 MG TABLET (FP) PO SCH (11:53)
[2022-08-14] MEDS: HEPARIN NA (PORCINE) 5,000 UNITS/ML 1ML VIAL SQ SCH ×2 (06:27→15:56)
[2022-08-14 07:53] LABS: ALBUMIN 2.9 g/dl (3.4-5.0)
[2022-08-14 07:54] LABS: BLOOD UREA NITROGEN 9.3 mg/dL (7-18); MAGNESIUM 1.4 mg/dL (1.8-2.4)
[2022-08-14 07:56] LABS: CREATININE 0.6 mg/dL (0.55-1.3)
[2022-08-14 07:58] LABS: BILIRUBIN,TOTAL 0.7 mg/dL (0.2-1); TOT PROT 5.9 g/dl (6.4-8.2)
[2022-08-14 08:33] LABS: BASO % 0.7 % (0-2.0); EOS % 2.4 % (0-4.5); HEMOGLOBIN 9.3 GM/dL (11.7-16.9); LYMPH % 14.9 % (8-40); MCH 22.7 pg (25.7-33.7); MCHC 30.9 g/dl (32.0-35.9); MEAN CELL VOLUME 73.5 fl (80-96); MEAN PLT VOLUME 7.3 fl (7.5-11.1); MONO % 8.4 % (3.8-10.2); NEUT % 73.6 % (42.8-82.8); PLATELET COUNT 186 10^3/uL (134-434); RBC 4.08 M/mm3 (4.00-5.60); WHITE BLOOD COUNT 7.4 K/mm3 (4.0-10.0)
[2022-08-14] MEDS ORDERED: POTASSIUM CHLORIDE ORAL LIQUID 20 MEQ/15 ML PO ONE (09:00)
[2022-08-14] MEDS ORDERED: MAGNESIUM OXIDE 400 MG TABLET (FP) PO ONE (09:00)
[2022-08-14] MEDS: amLODIPine BESYLATE 5 MG TABLET (FP) PO SCH (09:33)
[2022-08-14] MEDS: MAGNESIUM OXIDE 400 MG TABLET (FP) PO SCH (09:34)
[2022-08-14] MEDS: THIAMINE HCL 100 MG TABLET (FP) PO SCH (09:34)
[2022-08-14] MEDS: FOLIC ACID 1 MG TABLET (FP) PO SCH (09:34)
[2022-08-14 10:14] LABS: ANISOCYTOSIS 2+; MACROCYTOSIS 1+
[2022-08-14 15:19] VITALS: BP 139/89; PULSE 105; RESP 20; TEMP 97.5
== END 2022-08-14 15:57 | disposition home or self-care (01) | DRG 897 ==
LOC: JER 03:46 → JERBED 06:31 → J8W 13:09 → OBSVTOIN 08-12 13:28
PROVIDERS: ADMIT Internal Medicine; ATTEND Nurse Practitioner Family
PROC: HZ2ZZZZ Detoxification Services for Substance Abuse Treatment (ICD-10-PCS; principal; 2022-08-12)
DX: F10.230 Alcohol dependence with withdrawal, uncomplicated (principal); J44.1 Chronic obstructive pulmonary disease with (acute) exacerbation; J98.11 Atelectasis; I10 Essential (primary) hypertension; I48.91 Unspecified atrial fibrillation; I50.9 Heart failure, unspecified; I27.20 Pulmonary hypertension, unspecified; R09.02 Hypoxemia; R06.02 Shortness of breath; E83.51 Hypocalcemia; R07.9 Chest pain, unspecified; E66.9 Obesity, unspecified; Z68.34 Body mass index [BMI] 34.0-34.9, adult
CPT/HCPCS: 0241U-QW; 36415; 71045-TC-FY; 71275-TC; 80048; 80053; 82550; 82553; 82803; 83735; 83880; 84100; 84484; 85025; 85379; 85610; 85730; 87040; 93005; 93010; 99285-25; G0378; J1100; J1644; Q9967

== ENCOUNTER 2022-08-14 19:46 | Emergency (ER) | payer OTHER ==
[2022-08-14 19:55] VITALS: BP 93/54; PULSE 91; RESP 20; TEMP 97.6; BMI 28.7
== END 2022-08-15 06:48 | disposition home or self-care (01) ==
LOC: JER 19:46
DX: F10.129 Alcohol abuse with intoxication, unspecified (principal)
CPT/HCPCS: 99281-25

== ENCOUNTER 2022-08-16 19:42 | Emergency (ER) | payer OTHER ==
[2022-08-16 19:50] VITALS: BMI 35.9
[2022-08-17 08:25] VITALS: RESP 18
[2022-08-17 08:28] VITALS: BP 119/70; PULSE 107; TEMP 98
== END 2022-08-17 09:49 | disposition home or self-care (01) ==
LOC: JER 19:42
DX: F10.129 Alcohol abuse with intoxication, unspecified (principal); Y90.9 Presence of alcohol in blood, level not specified
CPT/HCPCS: 99281-25

== ENCOUNTER 2022-08-18 18:14 | Emergency (ER) | payer OTHER ==
[2022-08-18 18:38] VITALS: BMI 28.7
[2022-08-19 05:49] VITALS: BP 119/72; PULSE 89; RESP 18; TEMP 97.7
== END 2022-08-19 06:37 | disposition home or self-care (01) ==
LOC: JER 18:14
DX: Z59.00 Homelessness unspecified (principal)
CPT/HCPCS: 99283-25

== ENCOUNTER 2022-08-19 20:15 | Emergency (ER) | payer OTHER ==
[2022-08-19 20:22] VITALS: BMI 28.7
[2022-08-20 01:51] VITALS: RESP 19
[2022-08-20 06:09] VITALS: BP 121/66; PULSE 84; TEMP 97.1
== END 2022-08-20 06:13 | disposition home or self-care (01) ==
LOC: JER 20:15
DX: Z59.02 Unsheltered homelessness (principal)
CPT/HCPCS: 99281-25

== ENCOUNTER 2022-08-21 16:18 | Emergency (ER) | payer OTHER ==
[2022-08-21 16:47] VITALS: BP 138/70; PULSE 90; RESP 18; TEMP 98.2; BMI 28.7
== END 2022-08-22 06:30 | disposition home or self-care (01) ==
LOC: JER 16:18
DX: Z59.00 Homelessness unspecified (principal)
CPT/HCPCS: 99281-25

== ENCOUNTER 2022-08-22 19:04 | Emergency (ER) | payer OTHER ==
[2022-08-22 19:20] VITALS: BP 144/83; PULSE 59; RESP 18; TEMP 98; BMI 33.0
== END 2022-08-23 02:30 | disposition home or self-care (01) ==
LOC: JER 19:04
DX: M54.89 Other dorsalgia (principal)
CPT/HCPCS: 99282-25

== ENCOUNTER 2022-08-26 18:30 | Emergency (ER) | payer OTHER ==
[2022-08-26 18:43] VITALS: BMI 33.7
[2022-08-27 06:33] VITALS: BP 131/68; PULSE 75; RESP 20; TEMP 97.7
== END 2022-08-27 06:43 | disposition home or self-care (01) ==
LOC: JER 18:30
DX: M54.9 Dorsalgia, unspecified (principal); Z59.00 Homelessness unspecified
CPT/HCPCS: 99283-25

== ENCOUNTER 2022-08-27 21:24 | Emergency (ER) | payer OTHER ==
[2022-08-27 21:59] VITALS: BMI 35.9
[2022-08-28 05:57] VITALS: BP 131/65; PULSE 79; RESP 18; TEMP 98.1
== END 2022-08-28 06:15 | disposition home or self-care (01) ==
LOC: JER 21:24
DX: Z59.02 Unsheltered homelessness (principal)
CPT/HCPCS: 99281-25

== ENCOUNTER 2022-08-28 12:23 | Emergency (ER) | payer OTHER ==
[2022-08-28 12:30] VITALS: BP 142/80; PULSE 85; RESP 16; TEMP 97.5; BMI 34.4
[2022-08-28] MEDS ORDERED: METHOCARBAMOL 500 MG TABLET PO ONE (13:46)
[2022-08-28] MEDS ORDERED: METHOCARBAMOL 500 MG TABLET ONE (14:02)
== END 2022-08-28 15:21 | disposition left against medical advice (07) ==
LOC: JER 12:23
DX: M54.6 Pain in thoracic spine (principal)
CPT/HCPCS: 99283-25

== ENCOUNTER → 2022-08-29 | Emergency (ER) | payer OTHER ==
[2022-08-29 16:44] VITALS: BP 131/76; PULSE 83; RESP 18; TEMP 98; BMI 33.0
== END | disposition left against medical advice (07) ==
LOC: JER 16:21
DX: M54.50 Low back pain, unspecified (principal)
CPT/HCPCS: 99281-25

== ENCOUNTER 2022-09-05 12:00 | Emergency (ER) | payer OTHER ==
[2022-09-05 12:12] VITALS: BP 121/68; PULSE 95; RESP 18; TEMP 97.1; BMI 45.8
== END 2022-09-05 12:56 | disposition home or self-care (01) ==
LOC: JER 12:00
DX: M54.50 Low back pain, unspecified (principal)
CPT/HCPCS: 99282-25

== ENCOUNTER 2022-09-07 19:43 | Emergency (ER) | payer OTHER ==
[2022-09-07 19:48] VITALS: TEMP 97.3; BMI 38.0
[2022-09-08 06:09] VITALS: BP 169/95; PULSE 108; RESP 20
== END 2022-09-08 06:10 | disposition home or self-care (01) ==
LOC: JER 19:43
DX: Z59.00 Homelessness unspecified (principal)
CPT/HCPCS: 99281-25

== ENCOUNTER 2022-09-09 16:40 | Emergency (ER) | payer OTHER ==
[2022-09-09 17:43] VITALS: BP 117/60; PULSE 87; RESP 17; TEMP 97.7; BMI 33.0
== END 2022-09-10 02:45 | disposition home or self-care (01) ==
LOC: JER 16:40
DX: F10.929 Alcohol use, unspecified with intoxication, unspecified (principal)
CPT/HCPCS: 99283-25

== ENCOUNTER 2022-09-11 16:57 | Emergency (ER) | payer OTHER ==
[2022-09-11 17:26] VITALS: BMI 35.9
[2022-09-11] MEDS ORDERED: METHOCARBAMOL 500 MG TABLET PO ONE (18:30)
[2022-09-11] MEDS ORDERED: METHOCARBAMOL 500 MG TABLET ONE (19:21)
[2022-09-12 06:31] LABS: EOS % 3.1 % (0-4.5); HEMATOCRIT 30.4 % (35.4-49); HEMOGLOBIN 9.6 GM/dL (11.7-16.9); LYMPH % 17.1 % (8-40); MCH 22.9 pg (25.7-33.7); MCHC 31.5 g/dl (32.0-35.9); MEAN CELL VOLUME 72.8 fl (80-96); MEAN PLT VOLUME 7.6 fl (7.5-11.1); MONO % 7.1 % (3.8-10.2); NEUT % 71.7 % (42.8-82.8); PLATELET COUNT 310 10^3/uL (134-434); RBC 4.18 M/mm3 (4.00-5.60); RDW 21.1 % (11.9-15.9); WHITE BLOOD COUNT 6.2 K/mm3 (4.0-10.0)
[2022-09-12 06:53] LABS: ALBUMIN 3.3 g/dl (3.4-5.0); BLOOD UREA NITROGEN 8.2 mg/dL (7-18); CALCIUM 8.3 mg/dL (8.5-10.1)
[2022-09-12 06:56] LABS: CREATININE 0.6 mg/dL (0.55-1.3)
[2022-09-12 06:58] LABS: BILIRUBIN,TOTAL 0.6 mg/dL (0.2-1); TOT PROT 6.7 g/dl (6.4-8.2)
[2022-09-12 07:01] LABS: N-TERMINAL BNP 33.4 pg/ml (5-125)
[2022-09-12 08:39] VITALS: BP 178/105; PULSE 112; RESP 19; TEMP 98.1
[2022-09-12] MEDS ORDERED: chlordiazePOXIDE HCL 25 MG CAPSULE PO ONE (08:45)
[2022-09-12] MEDS ORDERED: chlordiazePOXIDE HCL 25 MG CAPSULE ONE (08:55)
[2022-09-12 09:58] LABS: ANISOCYTOSIS 0; MACROCYTOSIS 0
== END 2022-09-12 09:38 | disposition home or self-care (01) ==
LOC: JER 16:57
DX: R07.89 Other chest pain (principal); M54.50 Low back pain, unspecified; G89.29 Other chronic pain; Z20.822 Contact with and (suspected) exposure to COVID-19
CPT/HCPCS: 0241U-QW; 36415; 71045-TC-FY; 80053; 83880; 84484; 85025; 93005; 93010; 99285-25

== ENCOUNTER 2022-09-13 20:03 | Emergency (ER) | payer OTHER ==
[2022-09-13 20:07] VITALS: BP 140/78; PULSE 101; RESP 18; TEMP 97.7; BMI 33.7
[2022-09-13] MEDS ORDERED: LIDOCAINE 5% TOPICAL PATCH TP ONE (20:25)
[2022-09-13] MEDS ORDERED: IBUPROFEN 400 MG TABLET (FP) PO ONE ×2 (20:26→21:22)
[2022-09-13 21:28] LABS: BASO % 0.7 % (0-2.0); EOS % 3.7 % (0-4.5); HEMATOCRIT 28.8 % (35.4-49); HEMOGLOBIN 8.8 GM/dL (11.7-16.9); LYMPH % 26.1 % (8-40); MCH 22.2 pg (25.7-33.7); MCHC 30.5 g/dl (32.0-35.9); MEAN CELL VOLUME 72.5 fl (80-96); MEAN PLT VOLUME 7.1 fl (7.5-11.1); MONO % 9.1 % (3.8-10.2); NEUT % 60.4 % (42.8-82.8); PLATELET COUNT 287 10^3/uL (134-434); RBC 3.97 M/mm3 (4.00-5.60); RDW 21.2 % (11.9-15.9); WHITE BLOOD COUNT 6.1 K/mm3 (4.0-10.0)
[2022-09-13 21:54] LABS: CALCIUM 8.6 mg/dL (8.5-10.1)
[2022-09-13 21:55] LABS: ALBUMIN 3.2 g/dl (3.4-5.0); BLOOD UREA NITROGEN 11.9 mg/dL (7-18)
[2022-09-13 21:58] LABS: CREATININE 0.8 mg/dL (0.55-1.3)
[2022-09-13 21:59] LABS: BILIRUBIN,TOTAL 0.3 mg/dL (0.2-1)
[2022-09-13 22:00] LABS: TOT PROT 6.4 g/dl (6.4-8.2)
[2022-09-13] MEDS ORDERED: LIDOCAINE PATCH REMOVAL MC SCH (22:00)
[2022-09-13] MEDS ORDERED: POTASSIUM CHLORIDE TABS 20 MEQ TABLET.ER (FP) PO ONE (22:13)
== END 2022-09-14 06:47 | disposition home or self-care (01) ==
LOC: JER 20:03
DX: R00.2 Palpitations (principal); R07.89 Other chest pain
CPT/HCPCS: 36415; 71046-TC-FY; 80053; 84484; 85025; 93005; 93010; 99285-25

== ENCOUNTER 2022-09-18 21:06 | Inpatient (IN) | payer OTHER ==
[2022-09-18 21:20] VITALS: BMI 28.7
[2022-09-18 23:12] LABS: BASO % 0.8 % (0-2.0); EOS % 1.1 % (0-4.5); HEMATOCRIT 29.2 % (35.4-49); HEMOGLOBIN 9.2 GM/dL (11.7-16.9); MCH 22.8 pg (25.7-33.7); MCHC 31.5 g/dl (32.0-35.9); MEAN CELL VOLUME 72.3 fl (80-96); MEAN PLT VOLUME 7.4 fl (7.5-11.1); NEUT % 72.1 % (42.8-82.8); PLATELET COUNT 251 10^3/uL (134-434); RBC 4.04 M/mm3 (4.00-5.60); RDW 21.1 % (11.9-15.9); WHITE BLOOD COUNT 10.5 K/mm3 (4.0-10.0)
[2022-09-18 23:26] LABS: INR 1.11 (0.83-1.09); PROTHROMBIN TIME (PATIENT) 12.9 SEC (9.7-13.0)
[2022-09-18 23:29] LABS: ACTIVATED PTT 27.4 SECONDS (25.2-36.5)
[2022-09-18 23:33] LABS: CHLORIDE 100 mmol/L (98-107); SODIUM 138 mmol/L (136-145)
[2022-09-18 23:35] LABS: ALBUMIN 3.3 g/dl (3.4-5.0); BLOOD UREA NITROGEN 16.8 mg/dL (7-18); CO2 25 mmol/L (21-32); GLUCOSE,RANDOM 98 mg/dL (74-106); MAGNESIUM 1.3 mg/dL (1.8-2.4)
[2022-09-18 23:38] LABS: CREATININE 1.7 mg/dL (0.55-1.3); SGOT/AST 35 U/L (15-37); SGPT/ALT 21 U/L (13-61)
[2022-09-18 23:40] LABS: BILIRUBIN,TOTAL 0.5 mg/dL (0.2-1); TOT PROT 6.6 g/dl (6.4-8.2)
[2022-09-18 23:41] LABS: ALK PHOS 75 U/L (45-117); ANION GAP 13 MMOL/L (8-16)
[2022-09-18 23:44] LABS: ANISOCYTOSIS 2+; MACROCYTOSIS 0; OVALOCYTE 1+
[2022-09-18] MEDS ORDERED: SODIUM CHLORIDE 0.9% 500 ML INFUS.BAG IV ONE (23:44)
[2022-09-18] MEDS ORDERED: POTASSIUM CHLORIDE TABS 20 MEQ TABLET.ER (FP) PO ONE (23:45)
[2022-09-18] MEDS ORDERED: MAGNESIUM SULF 50% (8.12 MEQ/2 ML-1 GM VIAL) IVPB ONE (23:46)
[2022-09-18] MEDS ORDERED: THIAMINE HCL 200 MG/2 ML VIAL IVPB ONE (23:47)
[2022-09-19] MEDS ORDERED: POTASSIUM CHLORIDE TABS 20 MEQ TABLET.ER (FP) PO ONE ×2 (00:57→14:20)
[2022-09-19] MEDS ORDERED: MAGNESIUM SULFATE IN WATER 2 GM/50 ML IVPB IVPB ONE ×2 (00:58→13:12)
[2022-09-19] MEDS ORDERED: THIAMINE HCL 200 MG/2 ML VIAL ONE (00:59)
[2022-09-19] MEDS ORDERED: SODIUM CHLORIDE 0.9% 500 ML INFUS.BAG IV ONE (05:21)
[2022-09-19 07:35] LABS: CHLORIDE 105 mmol/L (98-107); SODIUM 140 mmol/L (136-145)
[2022-09-19 07:37] LABS: CALCIUM 7.6 mg/dL (8.5-10.1)
[2022-09-19 07:38] LABS: BLOOD UREA NITROGEN 12.8 mg/dL (7-18); CO2 25 mmol/L (21-32); GLUCOSE,RANDOM 82 mg/dL (74-106)
[2022-09-19 07:41] LABS: CREATININE 0.9 mg/dL (0.55-1.3); SGOT/AST 34 U/L (15-37); SGPT/ALT 20 U/L (13-61)
[2022-09-19 07:42] LABS: BILIRUBIN,TOTAL 0.6 mg/dL (0.2-1); TOT PROT 6.3 g/dl (6.4-8.2)
[2022-09-19 07:44] LABS: ALK PHOS 72 U/L (45-117); ANION GAP 11 MMOL/L (8-16)
[2022-09-19] MEDS ORDERED: KCL 10 MEQ IVPB 10 MEQ/100 ML INFUS.BAG IVPB ONE (08:36)
[2022-09-19] MEDS: KCL 10 MEQ IVPB 10 MEQ/100 ML INFUS.BAG IVPB SCH ×3 (08:44→13:06)
[2022-09-19] MEDS ORDERED: POTASSIUM CHLORIDE ORAL LIQUID 20 MEQ/15 ML PO ONE (09:44)
[2022-09-19] MEDS ORDERED: POTASSIUM CHLORIDE ORAL LIQUID 20 MEQ/15 ML ONE (09:49)
[2022-09-19 12:31] LABS: MAGNESIUM 1.6 mg/dL (1.8-2.4)
[2022-09-19] MEDS ORDERED: MAGNESIUM SULF 50% (8.12 MEQ/2 ML-1 GM VIAL) IVPB ONE (12:47)
[2022-09-19] MEDS ORDERED: LORazepam 2 MG/ML SDV VIAL IVPUSH PRN (14:17)
[2022-09-19] MEDS ORDERED: THIAMINE HCL 200 MG/2 ML VIAL IVPB SCH (14:30)
[2022-09-19 15:27] LABS: URINE APPEARANCE CLEAR; URINE BILIRUBIN NEGATIVE (NEGATIVE); URINE COLOR YELLOW; URINE GLUCOSE (UA) NEGATIVE (NEGATIVE); URINE KETONE TRACE (NEGATIVE); URINE LEUK ESTERASE NEGATIVE (NEGATIVE); URINE NITRITE NEGATIVE (NEGATIVE); URINE PROTEIN NEGATIVE (NEGATIVE)
[2022-09-19] MEDS: FOLIC ACID 1 MG TABLET (FP) PO SCH (15:49)
[2022-09-19] MEDS ORDERED: FOLIC ACID INJECTION - 1 MG, THIAMINE HCL 100 MG, MULTIVIT INJECTION ADULT 10 ML in SOD... IVPB ONE (16:50)
[2022-09-20 09:03] LABS: HEMATOCRIT 31.9 % (35.4-49); MCH 22.8 pg (25.7-33.7); MCHC 31.2 g/dl (32.0-35.9); MEAN CELL VOLUME 72.9 fl (80-96); MEAN PLT VOLUME 7.2 fl (7.5-11.1); PLATELET COUNT 237 10^3/uL (134-434); RBC 4.37 M/mm3 (4.00-5.60); RDW 21.6 % (11.9-15.9); WHITE BLOOD COUNT 8.8 K/mm3 (4.0-10.0)
[2022-09-20] MEDS: FOLIC ACID 1 MG TABLET (FP) PO SCH (09:24)
[2022-09-20] MEDS: THIAMINE HCL 200 MG/2 ML VIAL IM SCH (09:24)
[2022-09-20] MEDS: ENOXAPARIN NA (PORCINE) 40 MG/0.4 ML DISP.SYRIN SQ SCH (09:25)
[2022-09-20 09:30] LABS: CALCIUM 8.6 mg/dL (8.5-10.1)
[2022-09-20 09:31] LABS: ALBUMIN 3.2 g/dl (3.4-5.0); BLOOD UREA NITROGEN 11.9 mg/dL (7-18); MAGNESIUM 1.7 mg/dL (1.8-2.4)
[2022-09-20 09:34] LABS: CREATININE 0.6 mg/dL (0.55-1.3); PHOSPHOROUS 2.5 mg/dL (2.5-4.9)
[2022-09-20 09:35] LABS: TOT PROT 6.7 g/dl (6.4-8.2)
[2022-09-20] MEDS ORDERED: POTASSIUM CHLORIDE ORAL LIQUID 20 MEQ/15 ML PO ONE (09:38)
[2022-09-20] MEDS ORDERED: MAGNESIUM SULF 50% (8.12 MEQ/2 ML-1 GM VIAL) IVPB ONE (09:39)
[2022-09-20] MEDS ORDERED: POTASSIUM CHLORIDE TABS 20 MEQ TABLET.ER (FP) PO SCH (10:00)
[2022-09-20] MEDS ORDERED: ALBUTEROL SO4 HFA INHALER IH PRN (14:07)
[2022-09-20] MEDS: KCL 10 MEQ IVPB 10 MEQ/100 ML INFUS.BAG IVPB SCH ×3 (14:53→17:24)
[2022-09-20 16:32] LABS: ALBUMIN 2.9 g/dl (3.4-5.0); BLOOD UREA NITROGEN 11.1 mg/dL (7-18); CALCIUM 8.5 mg/dL (8.5-10.1); MAGNESIUM 1.9 mg/dL (1.8-2.4)
[2022-09-20 16:35] LABS: CREATININE 0.8 mg/dL (0.55-1.3); PHOSPHOROUS 2.4 mg/dL (2.5-4.9)
[2022-09-20 16:37] LABS: BILIRUBIN,TOTAL 0.6 mg/dL (0.2-1); TOT PROT 5.8 g/dl (6.4-8.2)
[2022-09-21] MEDS: amLODIPine BESYLATE 5 MG TABLET (FP) PO SCH (11:36)
[2022-09-21] MEDS: FOLIC ACID 1 MG TABLET (FP) PO SCH (11:36)
[2022-09-21] MEDS: ENOXAPARIN NA (PORCINE) 40 MG/0.4 ML DISP.SYRIN SQ SCH (11:36)
[2022-09-21] MEDS: NAPH,MB-DB/K PH,MBDB POWDER PACKET PO SCH (11:36)
[2022-09-21] MEDS: THIAMINE HCL 200 MG/2 ML VIAL IM SCH (11:37)
[2022-09-21 16:40] LABS: BASO % 0.8 % (0-2.0); EOS % 3.1 % (0-4.5); HEMATOCRIT 31.8 % (35.4-49); HEMOGLOBIN 9.8 GM/dL (11.7-16.9); LYMPH % 17.1 % (8-40); MCH 22.6 pg (25.7-33.7); MCHC 30.9 g/dl (32.0-35.9); MEAN CELL VOLUME 72.9 fl (80-96); MEAN PLT VOLUME 7.7 fl (7.5-11.1); MONO % 8.4 % (3.8-10.2); NEUT % 70.6 % (42.8-82.8); PLATELET COUNT 240 10^3/uL (134-434); RBC 4.36 M/mm3 (4.00-5.60); RDW 21.5 % (11.9-15.9); WHITE BLOOD COUNT 7.2 K/mm3 (4.0-10.0)
[2022-09-21 17:12] LABS: CALCIUM 8.9 mg/dL (8.5-10.1)
[2022-09-21 17:13] LABS: ALBUMIN 2.9 g/dl (3.4-5.0); BLOOD UREA NITROGEN 8.8 mg/dL (7-18); MAGNESIUM 1.5 mg/dL (1.8-2.4)
[2022-09-21] MEDS ORDERED: MAGNESIUM SULF 50% (8.12 MEQ/2 ML-1 GM VIAL) IVPB ONE (17:14)
[2022-09-21 17:16] LABS: CREATININE 0.6 mg/dL (0.55-1.3); PHOSPHOROUS 2.8 mg/dL (2.5-4.9)
[2022-09-21 17:17] LABS: BILIRUBIN,TOTAL 0.4 mg/dL (0.2-1); TOT PROT 6.2 g/dl (6.4-8.2)
[2022-09-22 08:29] LABS: BASO % 0.9 % (0-2.0); EOS % 3.4 % (0-4.5); HEMATOCRIT 29.8 % (35.4-49); HEMOGLOBIN 9.5 GM/dL (11.7-16.9); LYMPH % 17.1 % (8-40); MCHC 31.9 g/dl (32.0-35.9); MEAN PLT VOLUME 8.3 fl (7.5-11.1); MONO % 8.6 % (3.8-10.2); PLATELET COUNT 245 10^3/uL (134-434); RBC 4.13 M/mm3 (4.00-5.60); RDW 21.4 % (11.9-15.9); WHITE BLOOD COUNT 7.6 K/mm3 (4.0-10.0)
[2022-09-22 08:30] LABS: CALCIUM 8.7 mg/dL (8.5-10.1)
[2022-09-22 08:31] LABS: BLOOD UREA NITROGEN 5.9 mg/dL (7-18); MAGNESIUM 1.4 mg/dL (1.8-2.4)
[2022-09-22 08:34] LABS: CREATININE 0.5 mg/dL (0.55-1.3); PHOSPHOROUS 2.9 mg/dL (2.5-4.9)
[2022-09-22 08:36] LABS: BILIRUBIN,TOTAL 0.8 mg/dL (0.2-1); TOT PROT 6.1 g/dl (6.4-8.2)
[2022-09-22] MEDS ORDERED: MAGNESIUM SULF 50% (8.12 MEQ/2 ML-1 GM VIAL) IVPB ONE (09:01)
[2022-09-22 09:31] LABS: ANISOCYTOSIS 1+; MACROCYTOSIS 0; OVALOCYTE 1+
[2022-09-22] MEDS: FOLIC ACID 1 MG TABLET (FP) PO SCH (11:37)
[2022-09-22] MEDS: ENOXAPARIN NA (PORCINE) 40 MG/0.4 ML DISP.SYRIN SQ SCH (11:37)
[2022-09-22] MEDS: amLODIPine BESYLATE 5 MG TABLET (FP) PO SCH (11:38)
[2022-09-22] MEDS: THIAMINE HCL 200 MG/2 ML VIAL IM SCH (11:38)
[2022-09-22] MEDS: NAPH,MB-DB/K PH,MBDB POWDER PACKET PO SCH (11:38)
[2022-09-23 08:58] LABS: HEMOGLOBIN 9.2 GM/dL (11.7-16.9); WHITE BLOOD COUNT 7.9 K/mm3 (4.0-10.0)
[2022-09-23 08:59] LABS: EOS % 2.7 % (0-4.5); LYMPH % 16.1 % (8-40); MCH 23.1 pg (25.7-33.7); MCHC 31.9 g/dl (32.0-35.9); MEAN CELL VOLUME 72.5 fl (80-96); MEAN PLT VOLUME 7.6 fl (7.5-11.1); MONO % 8.7 % (3.8-10.2); NEUT % 71.5 % (42.8-82.8); PLATELET COUNT 271 10^3/uL (134-434); RDW 21.5 % (11.9-15.9)
[2022-09-23 09:27] LABS: CALCIUM 8.5 mg/dL (8.5-10.1)
[2022-09-23 09:28] LABS: MAGNESIUM 1.4 mg/dL (1.8-2.4)
[2022-09-23 09:30] LABS: ALBUMIN 2.9 g/dl (3.4-5.0)
[2022-09-23 09:33] LABS: CREATININE 0.5 mg/dL (0.55-1.3); PHOSPHOROUS 2.9 mg/dL (2.5-4.9)
[2022-09-23 09:35] LABS: BILIRUBIN,TOTAL 0.6 mg/dL (0.2-1)
[2022-09-23] MEDS: NAPH,MB-DB/K PH,MBDB POWDER PACKET PO SCH ×2 (09:51→09:59)
[2022-09-23] MEDS: THIAMINE HCL 200 MG/2 ML VIAL IM SCH ×2 (09:51→10:00)
[2022-09-23] MEDS: FOLIC ACID 1 MG TABLET (FP) PO SCH ×2 (09:52→09:59)
[2022-09-23] MEDS: ENOXAPARIN NA (PORCINE) 40 MG/0.4 ML DISP.SYRIN SQ SCH ×2 (09:52→09:59)
[2022-09-23] MEDS: amLODIPine BESYLATE 5 MG TABLET (FP) PO SCH ×2 (09:52→09:59)
[2022-09-24] MEDS: amLODIPine BESYLATE 5 MG TABLET (FP) PO SCH ×2 (08:56→09:14)
[2022-09-24 08:58] LABS: BASO % 0.5 % (0-2.0); EOS % 1.3 % (0-4.5); HEMOGLOBIN 9.7 GM/dL (11.7-16.9); LYMPH % 15.6 % (8-40); MCH 22.8 pg (25.7-33.7); MCHC 31.2 g/dl (32.0-35.9); MEAN PLT VOLUME 8.1 fl (7.5-11.1); MONO % 9.8 % (3.8-10.2); NEUT % 72.8 % (42.8-82.8); PLATELET COUNT 309 10^3/uL (134-434); RBC 4.24 M/mm3 (4.00-5.60); RDW 21.3 % (11.9-15.9); WHITE BLOOD COUNT 7.6 K/mm3 (4.0-10.0)
[2022-09-24] MEDS: NAPH,MB-DB/K PH,MBDB POWDER PACKET PO SCH (09:14)
[2022-09-24] MEDS: THIAMINE HCL 200 MG/2 ML VIAL IM SCH (09:14)
[2022-09-24] MEDS: FOLIC ACID 1 MG TABLET (FP) PO SCH (09:14)
[2022-09-24] MEDS: ENOXAPARIN NA (PORCINE) 40 MG/0.4 ML DISP.SYRIN SQ SCH (09:14)
[2022-09-24 09:37] LABS: ALBUMIN 3.1 g/dl (3.4-5.0); CALCIUM 9.1 mg/dL (8.5-10.1)
[2022-09-24 09:38] LABS: BLOOD UREA NITROGEN 7.5 mg/dL (7-18); MAGNESIUM 1.5 mg/dL (1.8-2.4)
[2022-09-24 09:40] LABS: CREATININE 0.5 mg/dL (0.55-1.3); PHOSPHOROUS 3.5 mg/dL (2.5-4.9)
[2022-09-24 09:41] LABS: BILIRUBIN,TOTAL 0.8 mg/dL (0.2-1); TOT PROT 6.2 g/dl (6.4-8.2)
[2022-09-24] MEDS ORDERED: ACETAMINOPHEN 325 MG TABLET (FP) PO PRN (12:19)
[2022-09-24] MEDS ORDERED: MAGNESIUM 2GM/50ML STERILE WATER IVPB IVPB ONE (15:27)
[2022-09-24] MEDS ORDERED: MAGNESIUM SULF 50% (8.12 MEQ/2 ML-1 GM VIAL) IVPB ONE (15:27)
[2022-09-24] MEDS ORDERED: MAGNESIUM OXIDE 400 MG TABLET (FP) PO ONE (15:45)
[2022-09-25 08:55] LABS: BASO % 0.3 % (0-2.0); HEMATOCRIT 30.2 % (35.4-49); HEMOGLOBIN 9.5 GM/dL (11.7-16.9); LYMPH % 17.8 % (8-40); MCHC 31.5 g/dl (32.0-35.9); MEAN CELL VOLUME 72.9 fl (80-96); MEAN PLT VOLUME 7.8 fl (7.5-11.1); MONO % 9.9 % (3.8-10.2); PLATELET COUNT 342 10^3/uL (134-434); RBC 4.14 M/mm3 (4.00-5.60); WHITE BLOOD COUNT 7.8 K/mm3 (4.0-10.0)
[2022-09-25 09:06] LABS: BLOOD UREA NITROGEN 7.1 mg/dL (7-18); CALCIUM 8.5 mg/dL (8.5-10.1); MAGNESIUM 1.5 mg/dL (1.8-2.4)
[2022-09-25 09:09] LABS: CREATININE 0.6 mg/dL (0.55-1.3); PHOSPHOROUS 3.5 mg/dL (2.5-4.9)
[2022-09-25 09:11] LABS: BILIRUBIN,TOTAL 0.7 mg/dL (0.2-1); TOT PROT 6.3 g/dl (6.4-8.2)
[2022-09-25] MEDS: amLODIPine BESYLATE 5 MG TABLET (FP) PO SCH (10:12)
[2022-09-25] MEDS: ENOXAPARIN NA (PORCINE) 40 MG/0.4 ML DISP.SYRIN SQ SCH (10:12)
[2022-09-25] MEDS: FOLIC ACID 1 MG TABLET (FP) PO SCH (10:12)
[2022-09-25] MEDS: THIAMINE HCL 200 MG/2 ML VIAL IM SCH (10:12)
[2022-09-25] MEDS: NAPH,MB-DB/K PH,MBDB POWDER PACKET PO SCH (10:12)
[2022-09-25 10:14] VITALS: BP 119/72; PULSE 85; RESP 20; TEMP 98.2
== END 2022-09-25 11:45 | disposition home or self-care (01) | DRG 897 ==
LOC: JER 21:06 → JERBED 09-19 12:48 → INTOOBSV 09-19 12:48 → J7W 09-19 23:12 → OBSVTOIN 09-23 14:01
PROVIDERS: ADMIT Internal Medicine
DX: F10.239 Alcohol dependence with withdrawal, unspecified (principal); R07.89 Other chest pain; E87.6 Hypokalemia; E83.42 Hypomagnesemia; K21.9 Gastro-esophageal reflux disease without esophagitis; I10 Essential (primary) hypertension; E78.5 Hyperlipidemia, unspecified; M25.569 Pain in unspecified knee; M54.50 Low back pain, unspecified; M54.6 Pain in thoracic spine; J44.9 Chronic obstructive pulmonary disease, unspecified; M25.561 Pain in right knee; M25.562 Pain in left knee; M54.12 Radiculopathy, cervical region; M54.16 Radiculopathy, lumbar region; I87.8 Other specified disorders of veins
CPT/HCPCS: 0241U-QW; 36415; 70450-TC; 71250-TC; 72125-TC; 73562-TC-LT-FY; 73562-TC-RT-FY; 74177-TC; 80053; 80307; 81003; 83735; 84100; 84132; 84484; 85025; 85027; 85610; 85730; 86850; 86900; 86901; 93005; 93010; 97116-GP; 97162-GP; 99285-25; G0378

== ENCOUNTER 2022-09-25 17:33 | Emergency (ER) | payer OTHER ==
[2022-09-25 18:11] VITALS: BMI 28.2
[2022-09-25 19:35] VITALS: PULSE 88
[2022-09-26 02:40] VITALS: BP 107/63; RESP 17; TEMP 98.7
[2022-09-26] MEDS ORDERED: ACETAMINOPHEN 500 MG TABLET (FP) PO ONE (05:30)
[2022-09-26] MEDS ORDERED: ACETAMINOPHEN 325 MG TABLET (FP) ONE (06:06)
== END 2022-09-26 06:42 | disposition home or self-care (01) ==
LOC: JER 17:33
DX: F10.129 Alcohol abuse with intoxication, unspecified (principal); Y90.9 Presence of alcohol in blood, level not specified
CPT/HCPCS: 99282-25

== ENCOUNTER 2022-09-28 17:21 | Emergency (ER) | payer OTHER ==
[2022-09-28 17:25] VITALS: PULSE 92; RESP 20; TEMP 98.7; BMI 35.9
[2022-09-28 20:19] VITALS: BP 132/78
== END 2022-09-29 06:16 | disposition home or self-care (01) ==
LOC: JER 17:21
DX: F10.929 Alcohol use, unspecified with intoxication, unspecified (principal); Y90.9 Presence of alcohol in blood, level not specified
CPT/HCPCS: 99282-25

== ENCOUNTER 2022-09-30 12:19 | Emergency (ER) | payer OTHER ==
[2022-09-30 12:44] VITALS: BMI 33.7
[2022-09-30 17:16] LABS: BASO % 0.6 % (0-2.0); EOS % 4.4 % (0-4.5); HEMATOCRIT 32.9 % (35.4-49); HEMOGLOBIN 10.2 GM/dL (11.7-16.9); MCH 22.9 pg (25.7-33.7); MCHC 31.2 g/dl (32.0-35.9); MEAN CELL VOLUME 73.6 fl (80-96); MEAN PLT VOLUME 7.5 fl (7.5-11.1); MONO % 5.5 % (3.8-10.2); NEUT % 60.5 % (42.8-82.8); PLATELET COUNT 572 10^3/uL (134-434); RBC 4.47 M/mm3 (4.00-5.60); RDW 20.4 % (11.9-15.9); WHITE BLOOD COUNT 7.8 K/mm3 (4.0-10.0)
[2022-09-30 17:24] LABS: INR 1.09 (0.83-1.09); PROTHROMBIN TIME (PATIENT) 12.6 SEC (9.7-13.0)
[2022-09-30 17:27] LABS: ACTIVATED PTT 30.4 SECONDS (25.2-36.5)
[2022-09-30 17:39] LABS: POTASSIUM 3.7 mmol/L (3.5-5.1)
[2022-09-30 17:41] LABS: CALCIUM 8.5 mg/dL (8.5-10.1)
[2022-09-30 17:42] LABS: ALBUMIN 3.2 g/dl (3.4-5.0); BLOOD UREA NITROGEN 12.1 mg/dL (7-18); MAGNESIUM 1.5 mg/dL (1.8-2.4)
[2022-09-30 17:45] LABS: CREATININE 0.7 mg/dL (0.55-1.3)
[2022-09-30 17:46] LABS: BILIRUBIN,TOTAL 0.2 mg/dL (0.2-1); TOT PROT 6.7 g/dl (6.4-8.2)
[2022-09-30 17:50] LABS: N-TERMINAL BNP 43.2 pg/ml (5-125)
[2022-10-01 01:06] VITALS: BP 118/79; PULSE 94; RESP 18; TEMP 97.5
== END 2022-10-01 05:47 | disposition home or self-care (01) ==
LOC: JER 12:19
DX: I50.9 Heart failure, unspecified (principal); J44.9 Chronic obstructive pulmonary disease, unspecified; F10.929 Alcohol use, unspecified with intoxication, unspecified; R06.02 Shortness of breath; R22.43 Localized swelling, mass and lump, lower limb, bilateral; Y90.9 Presence of alcohol in blood, level not specified
CPT/HCPCS: 36415; 71045-TC-FY; 80053; 83735; 83880; 84484; 85025; 85610; 85730; 93005; 93010; 99285-25

== ENCOUNTER 2022-10-01 20:54 | Emergency (ER) | payer OTHER ==
[2022-10-01 21:10] VITALS: BMI 35.9
[2022-10-02 01:14] VITALS: RESP 18
[2022-10-02 05:25] VITALS: BP 157/79; PULSE 104; TEMP 99
== END 2022-10-02 05:29 | disposition home or self-care (01) ==
LOC: JER 20:54
DX: Z59.00 Homelessness unspecified (principal)
CPT/HCPCS: 99282-25

== ENCOUNTER → 2022-10-01 | Emergency (ER) | payer OTHER ==
[2022-10-01 14:21] VITALS: BP 122/78; PULSE 78; RESP 19; TEMP 98.6; BMI 35.9
== END | disposition left against medical advice (07) ==
LOC: JER 14:05
DX: M54.05 Panniculitis affecting regions of neck and back, thoracolumbar region (principal)
CPT/HCPCS: 99281-25

== ENCOUNTER 2022-10-14 20:59 | Emergency (ER) | payer OTHER ==
[2022-10-14 21:07] VITALS: BMI 28.7
[2022-10-15 01:41] VITALS: RESP 18
[2022-10-15 03:26] VITALS: BP 121/62; PULSE 17; TEMP 97.7
== END 2022-10-15 05:50 | disposition home or self-care (01) ==
LOC: JER 20:59
DX: Z59.00 Homelessness unspecified (principal)
CPT/HCPCS: 99282-25

== ENCOUNTER 2022-10-15 09:44 | Emergency (ER) | payer OTHER ==
[2022-10-15 10:00] VITALS: BP 112/77; PULSE 105; RESP 18; TEMP 98.2; BMI 35.9
== END 2022-10-15 16:54 | disposition home or self-care (01) ==
LOC: JER 09:44
DX: M54.50 Low back pain, unspecified (principal); F10.129 Alcohol abuse with intoxication, unspecified; Y90.9 Presence of alcohol in blood, level not specified
CPT/HCPCS: 72100-TC-FY; 99283-25

== ENCOUNTER 2022-10-16 23:40 | Emergency (ER) | payer OTHER ==
[2022-10-16 23:44] VITALS: BP 133/73; PULSE 83; RESP 20; TEMP 98.5; BMI 35.9
== END 2022-10-17 06:00 | disposition home or self-care (01) ==
LOC: JER 23:40
DX: F10.920 Alcohol use, unspecified with intoxication, uncomplicated (principal)
CPT/HCPCS: 99282-25

== ENCOUNTER 2022-10-19 15:16 | Emergency (ER) | payer OTHER ==
[2022-10-19 15:20] VITALS: RESP 18; TEMP 97.8; BMI 33.0
[2022-10-19] MEDS ORDERED: METHOCARBAMOL 500 MG TABLET PO ONE (16:05)
[2022-10-19] MEDS ORDERED: METHOCARBAMOL 500 MG TABLET ONE (16:13)
[2022-10-19 18:38] VITALS: BP 141/80; PULSE 95
== END 2022-10-19 18:46 | disposition home or self-care (01) ==
LOC: JER 15:16
DX: M54.50 Low back pain, unspecified (principal); M79.641 Pain in right hand; F10.920 Alcohol use, unspecified with intoxication, uncomplicated
CPT/HCPCS: 73130-TC-RT-FY; 99283-25

== ENCOUNTER 2022-10-20 15:30 | Emergency (ER) | payer OTHER ==
[2022-10-20 15:52] VITALS: TEMP 98; BMI 31.5
[2022-10-20] MEDS ORDERED: LIDOCAINE 5% TOPICAL PATCH TP ONE (16:41)
[2022-10-20] MEDS ORDERED: METHOCARBAMOL 500 MG TABLET PO ONE (16:41)
[2022-10-20] MEDS ORDERED: ACETAMINOPHEN 500 MG TABLET (FP) PO ONE (16:41)
[2022-10-20] MEDS ORDERED: METHOCARBAMOL 500 MG TABLET ONE (17:46)
[2022-10-20] MEDS ORDERED: LIDOCAINE 5% TOPICAL PATCH ONE (17:47)
[2022-10-20] MEDS ORDERED: ACETAMINOPHEN 325 MG TABLET (FP) ONE (17:47)
[2022-10-20] MEDS ORDERED: LIDOCAINE PATCH REMOVAL MC SCH (22:00)
[2022-10-21 00:37] VITALS: BP 105/69; PULSE 88; RESP 16
== END 2022-10-21 00:53 | disposition home or self-care (01) ==
LOC: JER 15:30
DX: M54.50 Low back pain, unspecified (principal)
CPT/HCPCS: 99283-25

== ENCOUNTER 2022-10-21 16:02 | Emergency (ER) | payer OTHER ==
[2022-10-21 16:18] VITALS: PULSE 96; RESP 16; BMI 40.3
[2022-10-21 16:50] VITALS: BP 102/63; TEMP 98.1
== END 2022-10-22 02:19 | disposition home or self-care (01) ==
LOC: JER 16:02
DX: M54.9 Dorsalgia, unspecified (principal); G89.29 Other chronic pain; Z59.00 Homelessness unspecified
CPT/HCPCS: 99282-25

== ENCOUNTER 2022-10-22 14:29 | Emergency (ER) | payer OTHER ==
[2022-10-22 14:45] VITALS: BP 137/72; PULSE 100; RESP 19; TEMP 98; BMI 37.9
== END 2022-10-22 16:45 | disposition left against medical advice (07) ==
LOC: JER 14:29
DX: E86.0 Dehydration (principal); Z53.21 Procedure and treatment not carried out due to patient leaving prior to being seen by health care provider
CPT/HCPCS: 99281-25

== ENCOUNTER 2022-10-29 14:33 | Inpatient (IN) | payer OTHER ==
[2022-10-29] MEDS ORDERED: METHOCARBAMOL 500 MG TABLET PO ONE (15:57)
[2022-10-29] MEDS ORDERED: METHOCARBAMOL 500 MG TABLET ONE (17:10)
[2022-10-30] MEDS ORDERED: dilTIAZem HCL 50 MG/10 ML - 10 ML VIAL IVPUSH ONE (03:19)
[2022-10-30] MEDS ORDERED: SODIUM CHLORIDE 0.9% 500 ML INFUS.BAG IV ONE (03:28)
[2022-10-30] MEDS ORDERED: dilTIAZem HCL 125 MG/25 ML - 25 ML VIAL ONE (03:30)
[2022-10-30 03:36] LABS: BASO % 0.4 % (0-2.0); EOS % 1.9 % (0-4.5); HEMATOCRIT 25.7 % (35.4-49); HEMOGLOBIN 8.1 GM/dL (11.7-16.9); LYMPH % 14.9 % (8-40); MCH 22.7 pg (25.7-33.7); MCHC 31.5 g/dl (32.0-35.9); MEAN CELL VOLUME 72.1 fl (80-96); MEAN PLT VOLUME 7.2 fl (7.5-11.1); MONO % 12.4 % (3.8-10.2); NEUT % 70.4 % (42.8-82.8); PLATELET COUNT 188 10^3/uL (134-434); RBC 3.57 M/mm3 (4.00-5.60); RDW 21.3 % (11.9-15.9); WHITE BLOOD COUNT 6.9 K/mm3 (4.0-10.0)
[2022-10-30 03:47] LABS: INR 1.12 (0.83-1.09)
[2022-10-30 03:50] LABS: ACTIVATED PTT 29.1 SECONDS (25.2-36.5)
[2022-10-30 03:55] LABS: POTASSIUM 3.1 mmol/L (3.5-5.1)
[2022-10-30 03:57] LABS: CALCIUM 8.1 mg/dL (8.5-10.1)
[2022-10-30] MEDS ORDERED: dilTIAZem HCL 60 MG TABLET PO ONE (03:57)
[2022-10-30 03:58] LABS: ALBUMIN 3.2 g/dl (3.4-5.0); BLOOD UREA NITROGEN 18.3 mg/dL (7-18)
[2022-10-30] MEDS ORDERED: dilTIAZem HCL 60 MG TABLET ONE (03:58)
[2022-10-30 04:01] LABS: CREATININE 0.8 mg/dL (0.55-1.3)
[2022-10-30 04:03] LABS: BILIRUBIN,TOTAL 0.6 mg/dL (0.2-1); TOT PROT 6.6 g/dl (6.4-8.2)
[2022-10-30] MEDS ORDERED: POTASSIUM CHLORIDE TABS 20 MEQ TABLET.ER (FP) PO ONE (04:06)
[2022-10-30] MEDS ORDERED: chlordiazePOXIDE HCL 25 MG CAPSULE PO ONE (05:04)
[2022-10-30] MEDS ORDERED: chlordiazePOXIDE HCL 25 MG CAPSULE ONE (05:06)
[2022-10-30 06:08] LABS: ANISOCYTOSIS 3+; MACROCYTOSIS 1+; ROULEAU 2+
[2022-10-30] MEDS ORDERED: chlordiazePOXIDE HCL 25 MG CAPSULE PO PRN (06:40)
[2022-10-30] MEDS ORDERED: ALBUTEROL SO4 2.5/IPRATROPIUM 0.5 INH SOL 3 ML VIAL.NEB. NEB PRN (07:13)
[2022-10-30 07:25] LABS: MAGNESIUM 1.1 mg/dL (1.8-2.4)
[2022-10-30] MEDS ORDERED: MAGNESIUM SULF 50% (8.12 MEQ/2 ML-1 GM VIAL) IVPB ONE (08:30)
[2022-10-30] MEDS: THIAMINE HCL 100 MG TABLET (FP) PO SCH (09:46)
[2022-10-30] MEDS: FOLIC ACID 1 MG TABLET (FP) PO SCH (09:46)
[2022-10-30] MEDS ORDERED: ENOXAPARIN NA (PORCINE) 40 MG/0.4 ML DISP.SYRIN SQ SCH (10:00)
[2022-10-30] MEDS ORDERED: APIXABAN 5 MG TABLET PO SCH ×2 (10:00→10:45)
[2022-10-30] MEDS: chlordiazePOXIDE HCL 25 MG CAPSULE PO SCH ×3 (10:07→23:03)
[2022-10-30] MEDS ORDERED: APIXABAN 5 MG TABLET PO ONE (10:40)
[2022-10-30] MEDS: APIXABAN 5 MG TABLET PO SCH ×2 (10:51→23:04)
[2022-10-30 11:47] VITALS: BMI 39.3
[2022-10-30] MEDS: POTASSIUM CITRATE/CITRIC ACID 2 MEQ/ML ML PO SCH ×2 (12:10→12:16)
[2022-10-30] MEDS: dilTIAZem HCL 30 MG TABLET PO SCH ×3 (12:10→23:04)
[2022-10-31] MEDS: chlordiazePOXIDE HCL 25 MG CAPSULE PO SCH ×4 (06:36→22:00)
[2022-10-31] MEDS: dilTIAZem HCL 30 MG TABLET PO SCH (06:37)
[2022-10-31 08:49] LABS: HEMATOCRIT 27.4 % (35.4-49); HEMOGLOBIN 8.9 GM/dL (11.7-16.9); MCH 23.5 pg (25.7-33.7); MCHC 32.5 g/dl (32.0-35.9); MEAN CELL VOLUME 72.2 fl (80-96); MEAN PLT VOLUME 8.1 fl (7.5-11.1); PLATELET COUNT 172 10^3/uL (134-434); RBC 3.79 M/mm3 (4.00-5.60); WHITE BLOOD COUNT 6.2 K/mm3 (4.0-10.0)
[2022-10-31 09:36] LABS: POTASSIUM 3.3 mmol/L (3.5-5.1)
[2022-10-31 09:40] LABS: CALCIUM 8.2 mg/dL (8.5-10.1)
[2022-10-31 09:41] LABS: ALBUMIN 2.6 g/dl (3.4-5.0); BLOOD UREA NITROGEN 11.3 mg/dL (7-18); MAGNESIUM 1.3 mg/dL (1.8-2.4)
[2022-10-31] MEDS: APIXABAN 5 MG TABLET PO SCH ×2 (09:42→21:03)
[2022-10-31 09:44] LABS: CREATININE 0.6 mg/dL (0.55-1.3); PHOSPHOROUS 2.9 mg/dL (2.5-4.9)
[2022-10-31] MEDS: THIAMINE HCL 100 MG TABLET (FP) PO SCH (09:44)
[2022-10-31] MEDS: POTASSIUM CITRATE/CITRIC ACID 2 MEQ/ML ML PO SCH (09:44)
[2022-10-31] MEDS: FOLIC ACID 1 MG TABLET (FP) PO SCH (09:44)
[2022-10-31 09:45] LABS: BILIRUBIN,TOTAL 0.7 mg/dL (0.2-1)
[2022-10-31 09:46] LABS: TOT PROT 5.5 g/dl (6.4-8.2)
[2022-11-01] MEDS: chlordiazePOXIDE HCL 25 MG CAPSULE PO SCH ×4 (06:15→22:03)
[2022-11-01 08:18] LABS: HEMATOCRIT 26.9 % (35.4-49); HEMOGLOBIN 8.6 GM/dL (11.7-16.9); MCH 23.4 pg (25.7-33.7); MCHC 32.1 g/dl (32.0-35.9); MEAN CELL VOLUME 72.9 fl (80-96); MEAN PLT VOLUME 8.5 fl (7.5-11.1); PLATELET COUNT 183 10^3/uL (134-434); RBC 3.68 M/mm3 (4.00-5.60); RDW 22.5 % (11.9-15.9); WHITE BLOOD COUNT 6.3 K/mm3 (4.0-10.0)
[2022-11-01 08:39] LABS: POTASSIUM 3.8 mmol/L (3.5-5.1)
[2022-11-01 08:43] LABS: ALBUMIN 2.8 g/dl (3.4-5.0); BLOOD UREA NITROGEN 10.6 mg/dL (7-18); CALCIUM 8.4 mg/dL (8.5-10.1); MAGNESIUM 1.3 mg/dL (1.8-2.4)
[2022-11-01 08:45] LABS: CREATININE 0.5 mg/dL (0.55-1.3); PHOSPHOROUS 2.2 mg/dL (2.5-4.9)
[2022-11-01 08:47] LABS: BILIRUBIN,TOTAL 0.4 mg/dL (0.2-1); TOT PROT 5.4 g/dl (6.4-8.2)
[2022-11-01] MEDS: APIXABAN 5 MG TABLET PO SCH ×2 (10:03→22:03)
[2022-11-01] MEDS: FOLIC ACID 1 MG TABLET (FP) PO SCH (10:03)
[2022-11-01] MEDS: THIAMINE HCL 100 MG TABLET (FP) PO SCH (10:03)
[2022-11-01] MEDS: POTASSIUM CITRATE/CITRIC ACID 2 MEQ/ML ML PO SCH (10:04)
[2022-11-02] MEDS ORDERED: chlordiazePOXIDE HCL 10 MG CAPSULE PO PRN
[2022-11-02] MEDS: chlordiazePOXIDE HCL 10 MG CAPSULE PO SCH ×4 (05:32→22:26)
[2022-11-02] MEDS ORDERED: MAGNESIUM 2GM/50ML STERILE WATER IVPB IVPB ONE (09:12)
[2022-11-02] MEDS: POTASSIUM CITRATE/CITRIC ACID 2 MEQ/ML ML PO SCH (11:26)
[2022-11-02] MEDS: FOLIC ACID 1 MG TABLET (FP) PO SCH (11:26)
[2022-11-02] MEDS: APIXABAN 5 MG TABLET PO SCH ×3 (11:26→22:26)
[2022-11-02 11:27] LABS: HEMATOCRIT 28.9 % (35.4-49); MCH 22.6 pg (25.7-33.7); MCHC 31.1 g/dl (32.0-35.9); MEAN CELL VOLUME 72.9 fl (80-96); PLATELET COUNT 223 10^3/uL (134-434); RBC 3.96 M/mm3 (4.00-5.60); RDW 22.5 % (11.9-15.9); WHITE BLOOD COUNT 6.8 K/mm3 (4.0-10.0)
[2022-11-02] MEDS: THIAMINE HCL 100 MG TABLET (FP) PO SCH (11:27)
[2022-11-02 11:52] LABS: ALBUMIN 2.8 g/dl (3.4-5.0)
[2022-11-02 11:54] LABS: CALCIUM 8.8 mg/dL (8.5-10.1)
[2022-11-02 11:55] LABS: BLOOD UREA NITROGEN 10.5 mg/dL (7-18); MAGNESIUM 1.4 mg/dL (1.8-2.4)
[2022-11-02 11:56] LABS: PHOSPHOROUS 2.9 mg/dL (2.5-4.9)
[2022-11-02 11:57] LABS: CREATININE 0.6 mg/dL (0.55-1.3)
[2022-11-02 11:58] LABS: BILIRUBIN,TOTAL 0.4 mg/dL (0.2-1); TOT PROT 5.9 g/dl (6.4-8.2)
[2022-11-03] MEDS ORDERED: chlordiazePOXIDE HCL 10 MG CAPSULE PO SCH ×2 (05:00→17:00)
[2022-11-03] MEDS: THIAMINE HCL 100 MG TABLET (FP) PO SCH (10:00)
[2022-11-03] MEDS: POTASSIUM CITRATE/CITRIC ACID 2 MEQ/ML ML PO SCH (10:01)
[2022-11-03] MEDS: FOLIC ACID 1 MG TABLET (FP) PO SCH (10:01)
[2022-11-03] MEDS: APIXABAN 5 MG TABLET PO SCH ×2 (10:01→22:43)
[2022-11-03 12:03] LABS: HEMATOCRIT 28.3 % (35.4-49); HEMOGLOBIN 8.8 GM/dL (11.7-16.9); MCH 22.7 pg (25.7-33.7); MCHC 31.1 g/dl (32.0-35.9); MEAN PLT VOLUME 7.7 fl (7.5-11.1); PLATELET COUNT 264 10^3/uL (134-434); RBC 3.88 M/mm3 (4.00-5.60); RDW 22.4 % (11.9-15.9); WHITE BLOOD COUNT 6.9 K/mm3 (4.0-10.0)
[2022-11-03 12:22] LABS: POTASSIUM 4.2 mmol/L (3.5-5.1)
[2022-11-03 12:27] LABS: ALBUMIN 2.8 g/dl (3.4-5.0); BLOOD UREA NITROGEN 10.6 mg/dL (7-18); CALCIUM 8.8 mg/dL (8.5-10.1)
[2022-11-03 12:31] LABS: BILIRUBIN,TOTAL 0.4 mg/dL (0.2-1); CREATININE 0.5 mg/dL (0.55-1.3); MAGNESIUM 1.5 mg/dL (1.8-2.4); PHOSPHOROUS 3.6 mg/dL (2.5-4.9); TOT PROT 5.8 g/dl (6.4-8.2)
[2022-11-03] MEDS ORDERED: ALBUTEROL SO4 2.5/IPRATROPIUM 0.5 INH SOL 3 ML VIAL.NEB. NEB PRN (14:38)
[2022-11-04] MEDS ORDERED: chlordiazePOXIDE HCL 10 MG CAPSULE PO ONE ×2 (05:00)
[2022-11-04] MEDS: POTASSIUM CITRATE/CITRIC ACID 2 MEQ/ML ML PO SCH ×2 (09:15→09:18)
[2022-11-04] MEDS: THIAMINE HCL 100 MG TABLET (FP) PO SCH (09:15)
[2022-11-04] MEDS: APIXABAN 5 MG TABLET PO SCH ×2 (09:15→21:59)
[2022-11-04] MEDS: FOLIC ACID 1 MG TABLET (FP) PO SCH (09:15)
[2022-11-04 09:16] LABS: HEMATOCRIT 27.4 % (35.4-49); HEMOGLOBIN 8.8 GM/dL (11.7-16.9); MCH 23.2 pg (25.7-33.7); MEAN CELL VOLUME 72.7 fl (80-96); MEAN PLT VOLUME 8.3 fl (7.5-11.1); PLATELET COUNT 281 10^3/uL (134-434); RBC 3.77 M/mm3 (4.00-5.60); RDW 22.3 % (11.9-15.9); WHITE BLOOD COUNT 7.5 K/mm3 (4.0-10.0)
[2022-11-04 09:35] LABS: POTASSIUM 3.9 mmol/L (3.5-5.1)
[2022-11-04 09:40] LABS: BLOOD UREA NITROGEN 12.2 mg/dL (7-18); CALCIUM 8.5 mg/dL (8.5-10.1); MAGNESIUM 1.6 mg/dL (1.8-2.4)
[2022-11-04 09:41] LABS: ALBUMIN 2.8 g/dl (3.4-5.0)
[2022-11-04 09:43] LABS: PHOSPHOROUS 3.9 mg/dL (2.5-4.9)
[2022-11-04 09:44] LABS: CREATININE 0.6 mg/dL (0.55-1.3)
[2022-11-04 09:45] LABS: BILIRUBIN,TOTAL 0.4 mg/dL (0.2-1); TOT PROT 5.8 g/dl (6.4-8.2)
[2022-11-04 22:01] VITALS: RESP 20
[2022-11-05] MEDS: APIXABAN 5 MG TABLET PO SCH (09:05)
[2022-11-05] MEDS: FOLIC ACID 1 MG TABLET (FP) PO SCH (09:08)
[2022-11-05] MEDS: THIAMINE HCL 100 MG TABLET (FP) PO SCH (09:08)
[2022-11-05] MEDS: POTASSIUM CITRATE/CITRIC ACID 2 MEQ/ML ML PO SCH (11:40)
[2022-11-05 14:09] VITALS: BP 129/86; PULSE 112; TEMP 98
== END 2022-11-05 14:41 | disposition left against medical advice (07) | DRG 308 ==
LOC: JER 14:33 → JERBED 10-30 04:39 → J4S 10-30 08:01 → J8W 11-03 11:40
PROVIDERS: ADMIT Student in an Organized Health Care Education/Training Program; ATTEND Nurse Practitioner Family
PROC: HZ2ZZZZ Detoxification Services for Substance Abuse Treatment (ICD-10-PCS; principal; 2022-10-29)
DX: I48.0 Paroxysmal atrial fibrillation (principal); I26.94 Multiple subsegmental thrombotic pulmonary emboli without acute cor pulmonale; F10.239 Alcohol dependence with withdrawal, unspecified; I10 Essential (primary) hypertension; E78.5 Hyperlipidemia, unspecified; J44.9 Chronic obstructive pulmonary disease, unspecified; K21.9 Gastro-esophageal reflux disease without esophagitis; I71.21 Aneurysm of the ascending aorta, without rupture; R07.89 Other chest pain; E87.6 Hypokalemia; I73.9 Peripheral vascular disease, unspecified; M54.16 Radiculopathy, lumbar region; M54.12 Radiculopathy, cervical region; W18.39XA Other fall on same level, initial encounter; Y92.89 Other specified places as the place of occurrence of the external cause; Y99.8 Other external cause status
CPT/HCPCS: 0241U-QW; 36415; 71045-TC-FY; 71275-TC; 80053; 83735; 84100; 84484; 85025; 85027; 85610; 85730; 93005; 93010; 94640; 97116-GP; 97161-GP; 99285-25; Q9967

== ENCOUNTER 2022-11-05 21:01 | Emergency (ER) | payer OTHER ==
[2022-11-05 21:11] VITALS: BP 130/62; PULSE 94; RESP 18; TEMP 98.2; BMI 34.8
== END 2022-11-06 06:37 | disposition home or self-care (01) ==
LOC: JER 21:01
DX: M54.9 Dorsalgia, unspecified (principal); Z59.00 Homelessness unspecified
CPT/HCPCS: 99282-25

== ENCOUNTER 2022-11-10 21:20 | Emergency (ER) | payer OTHER ==
[2022-11-10 21:26] VITALS: TEMP 97.2; BMI 35.5
[2022-11-11 00:51] VITALS: PULSE 100
[2022-11-11 02:46] VITALS: BP 139/76; RESP 23
== END 2022-11-11 06:33 | disposition home or self-care (01) ==
LOC: JER 21:20
DX: S00.93XA Contusion of unspecified part of head, initial encounter (principal); F10.20 Alcohol dependence, uncomplicated; R51.9 Headache, unspecified; M54.9 Dorsalgia, unspecified; M25.561 Pain in right knee; M25.562 Pain in left knee; M79.641 Pain in right hand; M79.642 Pain in left hand; W19.XXXA Unspecified fall, initial encounter; Y92.009 Unspecified place in unspecified non-institutional (private) residence as the place of occurrence of the external cause; Y93.9 Activity, unspecified
CPT/HCPCS: 70450-TC; 72125-TC; 72128-TC; 72131-TC; 73562-TC-LT-FY; 73562-TC-RT-FY; 99284-25

== ENCOUNTER 2022-11-11 18:05 | Emergency (ER) | payer OTHER ==
[2022-11-11 18:30] VITALS: BP 105/65; PULSE 95; RESP 20; TEMP 98; BMI 40.3
== END 2022-11-12 06:00 | disposition home or self-care (01) ==
LOC: JER 18:05
DX: S09.90XD Unspecified injury of head, subsequent encounter (principal); F10.929 Alcohol use, unspecified with intoxication, unspecified; W19.XXXA Unspecified fall, initial encounter; Y93.9 Activity, unspecified; Y92.009 Unspecified place in unspecified non-institutional (private) residence as the place of occurrence of the external cause
CPT/HCPCS: 70450-TC; 72125-TC; 99284-25

== ENCOUNTER 2022-11-12 13:44 | Emergency (ER) | payer OTHER ==
[2022-11-12 13:55] VITALS: BP 129/69; PULSE 88; RESP 17; TEMP 97.4; BMI 40.3
== END 2022-11-12 19:00 | disposition home or self-care (01) ==
LOC: JERFT 13:44
DX: S80.01XA Contusion of right knee, initial encounter (principal); M25.561 Pain in right knee; M25.562 Pain in left knee; W01.0XXA Fall on same level from slipping, tripping and stumbling without subsequent striking against object, initial encounter
CPT/HCPCS: 73560-TC-LT-FY; 73560-TC-RT-FY; 99283-25

== ENCOUNTER 2022-11-14 18:37 | Emergency (ER) | payer OTHER ==
[2022-11-14 18:43] VITALS: BP 101/64; PULSE 103; RESP 18; TEMP 97; BMI 33.0
[2022-11-14] MEDS ORDERED: IBUPROFEN 600 MG TABLET (FP) PO ONE ×2 (19:33→19:45)
== END 2022-11-14 22:56 | disposition left against medical advice (07) ==
LOC: JER 18:37
DX: M54.50 Low back pain, unspecified (principal); R51.9 Headache, unspecified; M25.561 Pain in right knee; M25.562 Pain in left knee; W19.XXXA Unspecified fall, initial encounter
CPT/HCPCS: 73560-TC-LT-FY; 73560-TC-RT-FY; 99283-25

== ENCOUNTER 2022-11-15 11:54 | Emergency (ER) | payer OTHER ==
[2022-11-15 12:16] VITALS: BP 157/74; PULSE 75; RESP 23; TEMP 98.3; BMI 38.7
[2022-11-15] MEDS ORDERED: SODIUM CHLORIDE FOR INHALATION 3 ML VIAL.NEB IH ONE (12:53)
[2022-11-15 13:56] LABS: POTASSIUM 4.1 mmol/L (3.5-5.1)
[2022-11-15 13:58] LABS: CALCIUM 8.4 mg/dL (8.5-10.1)
[2022-11-15 13:59] LABS: BLOOD UREA NITROGEN 8.4 mg/dL (7-18)
[2022-11-15 14:02] LABS: CREATININE 0.7 mg/dL (0.55-1.3)
[2022-11-15 14:03] LABS: TOT PROT 6.5 g/dl (6.4-8.2)
[2022-11-15 14:04] LABS: BILIRUBIN,TOTAL 0.6 mg/dL (0.2-1)
[2022-11-15 14:07] LABS: N-TERMINAL BNP 68.4 pg/ml (5-125)
[2022-11-15] MEDS ORDERED: ALBUTEROL SO4 2.5/IPRATROPIUM 0.5 INH SOL 3 ML VIAL.NEB. NEB ONE (14:46)
[2022-11-15] MEDS: ALBUTEROL SO4 2.5/IPRATROPIUM 0.5 INH SOL 3 ML VIAL.NEB. NEB ONE ×2 (14:47→14:49)
== END 2022-11-15 15:35 | disposition home or self-care (01) ==
LOC: JER 11:54
DX: R06.02 Shortness of breath (principal); F10.10 Alcohol abuse, uncomplicated; R05.9 Cough, unspecified
CPT/HCPCS: 36415; 71045-TC-FY; 80053; 83880; 84484; 93005; 93010; 99285-25

== ENCOUNTER 2022-11-15 22:45 | Emergency (ER) | payer OTHER ==
[2022-11-15 23:16] VITALS: BP 127/58; PULSE 94; RESP 18; TEMP 98.5; BMI 36.6
== END 2022-11-16 06:55 | disposition home or self-care (01) ==
LOC: JER 22:45
DX: M54.9 Dorsalgia, unspecified (principal); G89.29 Other chronic pain; Z59.00 Homelessness unspecified
CPT/HCPCS: 99282-25

== ENCOUNTER 2022-11-18 19:22 | Emergency (ER) | payer OTHER ==
[2022-11-18 19:38] VITALS: PULSE 87; RESP 18; TEMP 97.6; BMI 34.4
[2022-11-19 06:02] VITALS: BP 136/88
== END 2022-11-19 06:02 | disposition home or self-care (01) ==
LOC: JER 19:22
DX: M25.561 Pain in right knee (principal); M25.562 Pain in left knee; Z59.00 Homelessness unspecified
CPT/HCPCS: 99283-25

== ENCOUNTER 2022-11-19 15:12 | Emergency (ER) | payer OTHER ==
[2022-11-19 15:24] VITALS: BP 131/77; PULSE 96; RESP 18; TEMP 97.4; BMI 43.5
== END 2022-11-19 16:28 | disposition home or self-care (01) ==
LOC: JER 15:12
DX: M54.50 Low back pain, unspecified (principal); G89.29 Other chronic pain
CPT/HCPCS: 99282-25

== ENCOUNTER 2022-11-25 12:30 | Inpatient (IN) | payer OTHER ==
[2022-11-25] MEDS ORDERED: METHOCARBAMOL 500 MG TABLET PO ONE (13:55)
[2022-11-25] MEDS ORDERED: METHOCARBAMOL 500 MG TABLET ONE (13:59)
[2022-11-25] MEDS ORDERED: chlordiazePOXIDE HCL 25 MG CAPSULE PO ONE (21:23)
[2022-11-25] MEDS ORDERED: chlordiazePOXIDE HCL 25 MG CAPSULE ONE (22:13)
[2022-11-25 22:18] LABS: BASO % 0.8 % (0-2.0); HEMATOCRIT 27.8 % (35.4-49); HEMOGLOBIN 8.6 GM/dL (11.7-16.9); LYMPH % 17.4 % (8-40); MCH 22.5 pg (25.7-33.7); MEAN CELL VOLUME 72.6 fl (80-96); MEAN PLT VOLUME 7.7 fl (7.5-11.1); MONO % 6.8 % (3.8-10.2); PLATELET COUNT 191 10^3/uL (134-434); RBC 3.83 M/mm3 (4.00-5.60); RDW 21.2 % (11.9-15.9); WHITE BLOOD COUNT 7.6 K/mm3 (4.0-10.0)
[2022-11-25 22:36] LABS: POTASSIUM 3.1 mmol/L (3.5-5.1)
[2022-11-25 22:38] LABS: CALCIUM 8.1 mg/dL (8.5-10.1)
[2022-11-25 22:39] LABS: ALBUMIN 2.9 g/dl (3.4-5.0); BLOOD UREA NITROGEN 7.6 mg/dL (7-18); MAGNESIUM 1.3 mg/dL (1.8-2.4)
[2022-11-25 22:42] LABS: CREATININE 0.6 mg/dL (0.55-1.3)
[2022-11-25 22:43] LABS: BILIRUBIN,TOTAL 1.3 mg/dL (0.2-1); TOT PROT 5.8 g/dl (6.4-8.2)
[2022-11-25] MEDS ORDERED: MAGNESIUM SULF 50% (8.12 MEQ/2 ML-1 GM VIAL) IVPB ONE (22:51)
[2022-11-25] MEDS ORDERED: POTASSIUM CHLORIDE ORAL LIQUID 20 MEQ/15 ML PO ONE (22:52)
[2022-11-25] MEDS ORDERED: POTASSIUM CHLORIDE ORAL LIQUID 20 MEQ/15 ML ONE (22:59)
[2022-11-25] MEDS ORDERED: MAGNESIUM 1GM/D5W - 2 GM/200 ML IVPB IVPB ONE (23:00)
[2022-11-25 23:15] LABS: ANISOCYTOSIS 2+; MACROCYTOSIS 1+; OVALOCYTE 1+
[2022-11-25] MEDS ORDERED: LORazepam 1 MG TABLET PO PRN (23:22)
[2022-11-25] MEDS ORDERED: APIXABAN 5 MG TABLET PO SCH (23:45)
[2022-11-26] MEDS ORDERED: chlordiazePOXIDE HCL 25 MG CAPSULE PO PRN (01:22)
[2022-11-26] MEDS ORDERED: chlordiazePOXIDE HCL 25 MG CAPSULE ONE (06:17)
[2022-11-26 06:19] LABS: HEMOGLOBIN 8.9 GM/dL (11.7-16.9); MCH 22.4 pg (25.7-33.7); MCHC 30.6 g/dl (32.0-35.9); MEAN CELL VOLUME 73.2 fl (80-96); MEAN PLT VOLUME 7.5 fl (7.5-11.1); PLATELET COUNT 158 10^3/uL (134-434); RBC 3.97 M/mm3 (4.00-5.60); RDW 21.9 % (11.9-15.9); WHITE BLOOD COUNT 6.5 K/mm3 (4.0-10.0)
[2022-11-26] MEDS: chlordiazePOXIDE HCL 25 MG CAPSULE PO SCH ×3 (06:20→18:59)
[2022-11-26 06:24] LABS: POTASSIUM 3.3 mmol/L (3.5-5.1)
[2022-11-26 06:27] LABS: ALBUMIN 2.7 g/dl (3.4-5.0); BLOOD UREA NITROGEN 5.5 mg/dL (7-18); MAGNESIUM 1.1 mg/dL (1.8-2.4)
[2022-11-26 06:30] LABS: CREATININE 0.6 mg/dL (0.55-1.3); PHOSPHOROUS 3.2 mg/dL (2.5-4.9)
[2022-11-26 06:31] LABS: BILIRUBIN,TOTAL 1.2 mg/dL (0.2-1)
[2022-11-26 06:32] LABS: TOT PROT 5.8 g/dl (6.4-8.2)
[2022-11-26] MEDS ORDERED: ACETAMINOPHEN 1000 MG/100 ML BAG IVPB PRN (08:05)
[2022-11-26] MEDS ORDERED: MAGNESIUM 2GM/50ML STERILE WATER IVPB IVPB ONE (08:15)
[2022-11-26] MEDS ORDERED: POTASSIUM CHLORIDE ORAL LIQUID 20 MEQ/15 ML PO ONE (08:15)
[2022-11-26] MEDS ORDERED: ENOXAPARIN NA (PORCINE) 40 MG/0.4 ML DISP.SYRIN SQ SCH (10:00)
[2022-11-26] MEDS: THIAMINE HCL 100 MG TABLET (FP) PO SCH (10:20)
[2022-11-26] MEDS: FOLIC ACID 1 MG TABLET (FP) PO SCH (10:20)
[2022-11-26] MEDS: ENOXAPARIN NA (PORCINE) 40 MG/0.4 ML DISP.SYRIN SQ SCH (10:23)
[2022-11-26 16:03] VITALS: RESP 18
[2022-11-26] MEDS: LACTATED RINGERS SOLUTION 1,000 ML/1,000 ML INFUS.BAG IV SCH (22:46)
[2022-11-27] MEDS ORDERED: chlordiazePOXIDE HCL 25 MG CAPSULE PO SCH (05:00)
[2022-11-27] MEDS: chlordiazePOXIDE HCL 25 MG CAPSULE PO SCH (06:16)
[2022-11-27] MEDS ORDERED: LORazepam 2 MG/ML SDV VIAL IVPUSH PRN (07:40)
[2022-11-27] MEDS ORDERED: ACETAMINOPHEN 325 MG TABLET (FP) PO PRN (07:42)
[2022-11-27] MEDS: FOLIC ACID 1 MG TABLET (FP) PO SCH (09:54)
[2022-11-27] MEDS: ENOXAPARIN NA (PORCINE) 40 MG/0.4 ML DISP.SYRIN SQ SCH (09:54)
[2022-11-27] MEDS: THIAMINE HCL 100 MG TABLET (FP) PO SCH (09:54)
[2022-11-27 10:13] LABS: HEMATOCRIT 30.2 % (35.4-49); HEMOGLOBIN 9.2 GM/dL (11.7-16.9); LYMPH % 12.4 % (8-40); MCH 22.5 pg (25.7-33.7); MCHC 30.5 g/dl (32.0-35.9); MEAN CELL VOLUME 73.8 fl (80-96); MEAN PLT VOLUME 7.8 fl (7.5-11.1); MONO % 5.2 % (3.8-10.2); NEUT % 81.1 % (42.8-82.8); PLATELET COUNT 202 10^3/uL (134-434); RDW 22.1 % (11.9-15.9); WHITE BLOOD COUNT 7.9 K/mm3 (4.0-10.0)
[2022-11-27 10:14] LABS: BASO % 0.3 % (0-2.0)
[2022-11-27 10:36] LABS: POTASSIUM 3.3 mmol/L (3.5-5.1)
[2022-11-27 10:41] LABS: ALBUMIN 2.9 g/dl (3.4-5.0); BLOOD UREA NITROGEN 7.1 mg/dL (7-18); CALCIUM 8.7 mg/dL (8.5-10.1)
[2022-11-27 10:42] LABS: MAGNESIUM 1.4 mg/dL (1.8-2.4)
[2022-11-27 10:44] LABS: CREATININE 0.6 mg/dL (0.55-1.3)
[2022-11-27 10:46] LABS: TOT PROT 6.1 g/dl (6.4-8.2)
[2022-11-28] MEDS ORDERED: chlordiazePOXIDE HCL 10 MG CAPSULE PO PRN
[2022-11-28] MEDS ORDERED: chlordiazePOXIDE HCL 10 MG CAPSULE PO SCH (05:00)
[2022-11-28] MEDS: ENOXAPARIN NA (PORCINE) 40 MG/0.4 ML DISP.SYRIN SQ SCH (10:01)
[2022-11-28] MEDS: GABAPENTIN 100 MG CAPSULE PO SCH ×2 (10:01→22:42)
[2022-11-28] MEDS: FOLIC ACID 1 MG TABLET (FP) PO SCH (10:01)
[2022-11-28] MEDS: THIAMINE HCL 100 MG TABLET (FP) PO SCH (10:01)
[2022-11-28] MEDS: LACTATED RINGERS SOLUTION 1,000 ML/1,000 ML INFUS.BAG IV SCH (12:45)
[2022-11-29] MEDS ORDERED: chlordiazePOXIDE HCL 10 MG CAPSULE PO SCH (05:00)
[2022-11-29 07:31] VITALS: BP 118/62; PULSE 82; TEMP 98.9
[2022-11-29 09:14] LABS: BASO % 0.2 % (0-2.0); EOS % 0.8 % (0-4.5); HEMATOCRIT 31.4 % (35.4-49); HEMOGLOBIN 9.7 GM/dL (11.7-16.9); MCH 22.8 pg (25.7-33.7); MEAN CELL VOLUME 73.5 fl (80-96); MEAN PLT VOLUME 7.3 fl (7.5-11.1); MONO % 7.6 % (3.8-10.2); NEUT % 78.4 % (42.8-82.8); PLATELET COUNT 261 10^3/uL (134-434); RBC 4.28 M/mm3 (4.00-5.60); RDW 23.4 % (11.9-15.9); WHITE BLOOD COUNT 10.8 K/mm3 (4.0-10.0)
[2022-11-29 09:37] LABS: POTASSIUM 3.4 mmol/L (3.5-5.1)
[2022-11-29 09:43] LABS: ALBUMIN 3.3 g/dl (3.4-5.0)
[2022-11-29 09:44] LABS: BLOOD UREA NITROGEN 8.1 mg/dL (7-18); MAGNESIUM 1.6 mg/dL (1.8-2.4)
[2022-11-29 09:46] LABS: CREATININE 0.7 mg/dL (0.55-1.3); PHOSPHOROUS 3.4 mg/dL (2.5-4.9)
[2022-11-29 09:48] LABS: BILIRUBIN,TOTAL 0.7 mg/dL (0.2-1); TOT PROT 6.6 g/dl (6.4-8.2)
[2022-11-29] MEDS: FOLIC ACID 1 MG TABLET (FP) PO SCH (10:16)
[2022-11-29] MEDS: ENOXAPARIN NA (PORCINE) 40 MG/0.4 ML DISP.SYRIN SQ SCH (10:16)
[2022-11-29] MEDS: THIAMINE HCL 100 MG TABLET (FP) PO SCH (10:16)
[2022-11-29] MEDS: GABAPENTIN 100 MG CAPSULE PO SCH (10:16)
[2022-11-30] MEDS ORDERED: chlordiazePOXIDE HCL 10 MG CAPSULE PO ONE (05:00)
== END 2022-11-29 11:13 | disposition home or self-care (01) | DRG 897 ==
LOC: JER 12:30 → JERBED 21:25 → J5S 11-26 06:34 → OBSVTOIN 11-27 13:33
PROVIDERS: ADMIT Internal Medicine; ATTEND Internal Medicine
PROC: HZ2ZZZZ Detoxification Services for Substance Abuse Treatment (ICD-10-PCS; principal; 2022-11-27)
DX: F10.239 Alcohol dependence with withdrawal, unspecified (principal); M54.50 Low back pain, unspecified; I10 Essential (primary) hypertension; J44.9 Chronic obstructive pulmonary disease, unspecified; E78.5 Hyperlipidemia, unspecified; E83.42 Hypomagnesemia; E87.6 Hypokalemia; I48.91 Unspecified atrial fibrillation; K21.9 Gastro-esophageal reflux disease without esophagitis
CPT/HCPCS: 0241U-QW; 36415; 71045-TC-FY; 80053; 83735; 84100; 85025; 85027; 93005; 93010; 97116-GP; 97161-GP; 99285-25; G0378

== ENCOUNTER 2022-12-01 14:01 | Inpatient (IN) | payer OTHER ==
[2022-12-01 14:59] VITALS: BMI 33.0
[2022-12-01 18:34] LABS: BASO % 0.5 % (0-2.0); EOS % 2.8 % (0-4.5); HEMATOCRIT 29.9 % (35.4-49); HEMOGLOBIN 9.1 GM/dL (11.7-16.9); LYMPH % 22.3 % (8-40); MCH 22.6 pg (25.7-33.7); MCHC 30.4 g/dl (32.0-35.9); MEAN CELL VOLUME 74.1 fl (80-96); MEAN PLT VOLUME 7.3 fl (7.5-11.1); MONO % 9.8 % (3.8-10.2); NEUT % 64.6 % (42.8-82.8); PLATELET COUNT 327 10^3/uL (134-434); RBC 4.04 M/mm3 (4.00-5.60); RDW 22.9 % (11.9-15.9); WHITE BLOOD COUNT 7.5 K/mm3 (4.0-10.0)
[2022-12-01 18:40] LABS: INR 1.09 (0.83-1.09); PROTHROMBIN TIME (PATIENT) 12.6 SEC (9.7-13.0)
[2022-12-01 18:43] LABS: ACTIVATED PTT 27.3 SECONDS (25.2-36.5)
[2022-12-01 18:48] LABS: POTASSIUM 3.5 mmol/L (3.5-5.1)
[2022-12-01 18:51] LABS: ALBUMIN 3.4 g/dl (3.4-5.0); CALCIUM 8.3 mg/dL (8.5-10.1)
[2022-12-01 18:52] LABS: BLOOD UREA NITROGEN 7.2 mg/dL (7-18)
[2022-12-01 18:55] LABS: CREATININE 0.6 mg/dL (0.55-1.3)
[2022-12-01 18:56] LABS: BILIRUBIN,TOTAL 0.3 mg/dL (0.2-1); TOT PROT 6.7 g/dl (6.4-8.2)
[2022-12-01] MEDS ORDERED: APIXABAN 5 MG TABLET PO ONE (20:07)
[2022-12-01] MEDS ORDERED: DEXAMETHASONE SOD PHOSPHATE 10 MG/1 ML VIAL IVPUSH ONE (20:13)
[2022-12-01] MEDS ORDERED: APIXABAN 5 MG TABLET ONE ×2 (20:39)
[2022-12-01] MEDS ORDERED: ALBUTEROL SO4 2.5/IPRATROPIUM 0.5 INH SOL 3 ML VIAL.NEB. NEB ONE (20:39)
[2022-12-01] MEDS ORDERED: DEXAMETHASONE SOD PHOSPHATE 10 MG/1 ML VIAL ONE (20:39)
[2022-12-01] MEDS: ALBUTEROL SO4 2.5/IPRATROPIUM 0.5 INH SOL 3 ML VIAL.NEB. NEB SCH ×4 (20:52→22:04)
[2022-12-01] MEDS ORDERED: LORazepam 2 MG TABLET PO PRN (22:23)
[2022-12-01] MEDS: methylPREDNISolone NA SUCC 40 MG/1 ML VIAL IVPUSH SCH (22:24)
[2022-12-01] MEDS: THIAMINE HCL 100 MG TABLET (FP) PO SCH (22:25)
[2022-12-01] MEDS: AZITHROMYCIN IVPB 500 MG in DEXTROSE 5%-WATER - 250 ML IVPB SCH (22:25)
[2022-12-02] MEDS: ALBUTEROL SO4 2.5/IPRATROPIUM 0.5 INH SOL 3 ML VIAL.NEB. NEB SCH ×2 (00:03→09:37)
[2022-12-02] MEDS: FOLIC ACID 1 MG TABLET (FP) PO SCH ×2 (00:04→09:37)
[2022-12-02] MEDS ORDERED: THIAMINE HCL 100 MG TABLET (FP) ONE ×2 (00:05→08:56)
[2022-12-02] MEDS ORDERED: AZITHROMYCIN IVPB 500 MG/250 ML BAG IVPB ONE (00:06)
[2022-12-02] MEDS ORDERED: methylPREDNISolone NA SUCC 40 MG/1 ML VIAL ONE ×2 (00:06→08:56)
[2022-12-02] MEDS: methylPREDNISolone NA SUCC 40 MG/1 ML VIAL IVPUSH SCH (05:40)
[2022-12-02 05:58] LABS: HEMATOCRIT 29.3 % (35.4-49); HEMOGLOBIN 8.9 GM/dL (11.7-16.9); MCH 22.8 pg (25.7-33.7); MCHC 30.5 g/dl (32.0-35.9); MEAN CELL VOLUME 74.7 fl (80-96); MEAN PLT VOLUME 7.6 fl (7.5-11.1); PLATELET COUNT 312 10^3/uL (134-434); RBC 3.92 M/mm3 (4.00-5.60); RDW 22.1 % (11.9-15.9)
[2022-12-02 06:11] LABS: POTASSIUM 3.6 mmol/L (3.5-5.1)
[2022-12-02 06:13] LABS: CALCIUM 8.5 mg/dL (8.5-10.1)
[2022-12-02 06:14] LABS: ALBUMIN 3.1 g/dl (3.4-5.0)
[2022-12-02 06:16] LABS: MAGNESIUM 1.4 mg/dL (1.8-2.4)
[2022-12-02] MEDS ORDERED: LORazepam 1 MG TABLET PO PRN (06:16)
[2022-12-02 06:17] LABS: CREATININE 0.7 mg/dL (0.55-1.3); PHOSPHOROUS 2.6 mg/dL (2.5-4.9)
[2022-12-02 06:18] LABS: BILIRUBIN,TOTAL 0.4 mg/dL (0.2-1); TOT PROT 6.6 g/dl (6.4-8.2)
[2022-12-02 08:51] VITALS: BP 168/94; PULSE 96; RESP 23; TEMP 98.7
[2022-12-02] MEDS ORDERED: ALBUTEROL SO4 2.5/IPRATROPIUM 0.5 INH SOL 3 ML VIAL.NEB. NEB ONE (08:55)
[2022-12-02] MEDS ORDERED: APIXABAN 5 MG TABLET ONE (08:55)
[2022-12-02] MEDS ORDERED: FOLIC ACID 1 MG TABLET (FP) ONE (08:56)
[2022-12-02] MEDS: THIAMINE HCL 100 MG TABLET (FP) PO SCH (09:38)
[2022-12-02] MEDS: AZITHROMYCIN IVPB 500 MG in DEXTROSE 5%-WATER - 250 ML IVPB SCH (09:38)
[2022-12-02] MEDS ORDERED: APIXABAN 5 MG TABLET PO SCH (10:00)
[2022-12-02] MEDS ORDERED: BUDESONIDE/FORMETEROL FUMARATE 160/4.5 mcg INHALER IH SCH (10:00)
== END 2022-12-02 09:00 | disposition left against medical advice (07) | DRG 190 ==
LOC: JER 14:01 → JERBED 20:49
PROVIDERS: ADMIT Internal Medicine; ATTEND Internal Medicine
DX: J44.1 Chronic obstructive pulmonary disease with (acute) exacerbation (principal); J96.01 Acute respiratory failure with hypoxia; J98.11 Atelectasis; I10 Essential (primary) hypertension; E78.5 Hyperlipidemia, unspecified; I48.91 Unspecified atrial fibrillation; M54.9 Dorsalgia, unspecified; F10.129 Alcohol abuse with intoxication, unspecified; M25.569 Pain in unspecified knee; D50.9 Iron deficiency anemia, unspecified; G89.29 Other chronic pain; I71.40 Abdominal aortic aneurysm, without rupture, unspecified; E83.42 Hypomagnesemia; K21.9 Gastro-esophageal reflux disease without esophagitis; M48.54XS Collapsed vertebra, not elsewhere classified, thoracic region, sequela of fracture; E66.9 Obesity, unspecified; Z68.33 Body mass index [BMI] 33.0-33.9, adult; Z86.711 Personal history of pulmonary embolism; Z85.118 Personal history of other malignant neoplasm of bronchus and lung
CPT/HCPCS: 0241U-QW; 36415; 71045-TC-FY; 80053; 83735; 84100; 84484; 85025; 85027; 85610; 85730; 93005; 93010; 99285-25; J1100

== ENCOUNTER 2022-12-02 14:57 | Emergency (ER) | payer OTHER ==
[2022-12-02 15:23] VITALS: BP 104/56; PULSE 96; RESP 16; TEMP 98; BMI 39.5
== END 2022-12-02 17:30 | disposition home or self-care (01) ==
LOC: JER 14:57
DX: F10.929 Alcohol use, unspecified with intoxication, unspecified (principal); Y90.9 Presence of alcohol in blood, level not specified
CPT/HCPCS: 99282-25

== ENCOUNTER 2022-12-02 21:32 | Emergency (ER) | payer OTHER ==
[2022-12-02 21:36] VITALS: BP 140/79; PULSE 62; RESP 18; TEMP 97.5; BMI 28.7
== END 2022-12-03 06:10 | disposition home or self-care (01) ==
LOC: JER 21:32
DX: F10.20 Alcohol dependence, uncomplicated (principal); Z59.00 Homelessness unspecified; Y90.9 Presence of alcohol in blood, level not specified
CPT/HCPCS: 99283-25

== ENCOUNTER 2022-12-06 01:08 | Emergency (ER) | payer OTHER ==
[2022-12-06 01:16] VITALS: BP 109/79; PULSE 86; RESP 18; TEMP 98.1; BMI 28.7
== END 2022-12-06 09:15 | disposition home or self-care (01) ==
LOC: JER 01:08
DX: M54.9 Dorsalgia, unspecified (principal); F10.929 Alcohol use, unspecified with intoxication, unspecified
CPT/HCPCS: 99282-25

== ENCOUNTER 2022-12-06 13:54 | Emergency (ER) | payer OTHER ==
[2022-12-06 14:07] VITALS: RESP 16; BMI 41.9
[2022-12-06] MEDS ORDERED: METHOCARBAMOL 500 MG TABLET PO ONE (15:52)
[2022-12-06] MEDS ORDERED: ACETAMINOPHEN 500 MG TABLET (FP) PO ONE (16:07)
[2022-12-06] MEDS ORDERED: METHOCARBAMOL 500 MG TABLET ONE (16:18)
[2022-12-06 17:55] VITALS: BP 116/57; PULSE 98; TEMP 99
== END 2022-12-06 18:32 | disposition home or self-care (01) ==
LOC: JER 13:54
DX: M54.50 Low back pain, unspecified (principal)
CPT/HCPCS: 99283-25

== ENCOUNTER 2022-12-07 22:57 | Emergency (ER) | payer OTHER ==
[2022-12-07 23:03] VITALS: RESP 19; TEMP 98.5; BMI 32.3
[2022-12-07] MEDS ORDERED: METHOCARBAMOL 500 MG TABLET PO ONE (23:28)
[2022-12-07] MEDS ORDERED: METHOCARBAMOL 500 MG TABLET ONE (23:35)
[2022-12-08 06:18] VITALS: BP 115/65
[2022-12-08 06:38] VITALS: PULSE 84
== END 2022-12-08 06:43 | disposition home or self-care (01) ==
LOC: JER 22:57
DX: F10.10 Alcohol abuse, uncomplicated (principal); M54.9 Dorsalgia, unspecified; R51.9 Headache, unspecified; W18.30XA Fall on same level, unspecified, initial encounter; W22.8XXA Striking against or struck by other objects, initial encounter; Y92.830 Public park as the place of occurrence of the external cause
CPT/HCPCS: 70450-TC; 99284-25

== ENCOUNTER 2022-12-08 15:02 | Emergency (ER) | payer OTHER ==
[2022-12-08 15:29] VITALS: BP 111/62; PULSE 91; RESP 20; TEMP 96.4; BMI 35.9
== END 2022-12-08 18:12 | disposition home or self-care (01) ==
LOC: JER 15:02
DX: F10.129 Alcohol abuse with intoxication, unspecified (principal); M54.9 Dorsalgia, unspecified; R60.0 Localized edema; Y90.9 Presence of alcohol in blood, level not specified
CPT/HCPCS: 99282-25

== ENCOUNTER 2022-12-08 22:10 | Emergency (ER) | payer OTHER ==
[2022-12-08 22:12] VITALS: TEMP 97.5; BMI 28.7
[2022-12-09 05:28] VITALS: BP 131/68; PULSE 75; RESP 19
== END 2022-12-09 05:50 | disposition home or self-care (01) ==
LOC: JER 22:10
DX: Z59.00 Homelessness unspecified (principal)
CPT/HCPCS: 99282-25

== ENCOUNTER 2022-12-10 13:44 | Emergency (ER) | payer OTHER ==
[2022-12-10 13:50] VITALS: BP 112/65; PULSE 107; RESP 18; TEMP 98.4; BMI 35.9
== END 2022-12-10 17:47 | disposition left against medical advice (07) ==
LOC: JER 13:44
DX: F10.129 Alcohol abuse with intoxication, unspecified (principal); M54.50 Low back pain, unspecified; M54.2 Cervicalgia; G89.29 Other chronic pain; S09.90XA Unspecified injury of head, initial encounter; W01.198A Fall on same level from slipping, tripping and stumbling with subsequent striking against other object, initial encounter; Y90.9 Presence of alcohol in blood, level not specified
CPT/HCPCS: 99283-25

== ENCOUNTER 2022-12-11 18:50 | Emergency (ER) | payer OTHER ==
[2022-12-11 19:00] VITALS: BP 123/67; PULSE 106; RESP 18; TEMP 98; BMI 33.0
== END 2022-12-11 20:04 | disposition left against medical advice (07) ==
LOC: JER 18:50
DX: M54.50 Low back pain, unspecified (principal); L55.9 Sunburn, unspecified
CPT/HCPCS: 99281-25

== ENCOUNTER 2022-12-14 21:05 | Emergency (ER) | payer OTHER ==
[2022-12-14 21:51] VITALS: BP 104/50; PULSE 92; RESP 18; TEMP 98.8; BMI 35.9
[2022-12-14] MEDS ORDERED: ACETAMINOPHEN 325 MG TABLET (FP) PO ONE (22:37)
[2022-12-14] MEDS ORDERED: ACETAMINOPHEN 325 MG TABLET (FP) ONE (22:57)
== END 2022-12-15 06:51 | disposition home or self-care (01) ==
LOC: JER 21:05
DX: M54.9 Dorsalgia, unspecified (principal); G89.29 Other chronic pain
CPT/HCPCS: 99283-25

== ENCOUNTER 2022-12-18 13:48 | Emergency (ER) | payer OTHER ==
[2022-12-18 13:55] VITALS: BP 128/50; PULSE 96; RESP 17; TEMP 98.5; BMI 35.9
== END 2022-12-18 16:20 | disposition home or self-care (01) ==
LOC: JER 13:48
DX: R06.02 Shortness of breath (principal); T73.0XXA Starvation, initial encounter; R53.83 Other fatigue
CPT/HCPCS: 99282-25

== ENCOUNTER 2022-12-20 13:49 | Emergency (ER) | payer OTHER ==
[2022-12-20 14:26] VITALS: BP 116/67; PULSE 100; RESP 18; TEMP 97.8; BMI 35.9
== END 2022-12-20 16:50 | disposition home or self-care (01) ==
LOC: JER 13:49
DX: M54.9 Dorsalgia, unspecified (principal); G89.29 Other chronic pain; T73.0XXA Starvation, initial encounter; F10.229 Alcohol dependence with intoxication, unspecified; M54.2 Cervicalgia
CPT/HCPCS: 99282-25

== ENCOUNTER 2022-12-23 20:47 | Observation (INO) | payer OTHER ==
[2022-12-23 22:49] LABS: BASO % 1.1 % (0-2.0); EOS % 3.2 % (0-4.5); HEMATOCRIT 27.7 % (35.4-49); HEMOGLOBIN 8.5 GM/dL (11.7-16.9); LYMPH % 26.1 % (8-40); MCHC 30.6 g/dl (32.0-35.9); MEAN CELL VOLUME 71.8 fl (80-96); MONO % 9.7 % (3.8-10.2); NEUT % 59.9 % (42.8-82.8); PLATELET COUNT 234 10^3/uL (134-434); RBC 3.86 M/mm3 (4.00-5.60); RDW 22.9 % (11.9-15.9); WHITE BLOOD COUNT 4.9 K/mm3 (4.0-10.0)
[2022-12-23 23:02] LABS: INR 1.07 (0.83-1.09); PROTHROMBIN TIME (PATIENT) 12.4 SEC (9.7-13.0)
[2022-12-23 23:05] LABS: ACTIVATED PTT 28.6 SECONDS (25.2-36.5)
[2022-12-23 23:27] LABS: POTASSIUM 3.7 mmol/L (3.5-5.1)
[2022-12-23 23:29] LABS: CALCIUM 8.3 mg/dL (8.5-10.1)
[2022-12-23 23:33] LABS: CREATININE 0.8 mg/dL (0.55-1.3)
[2022-12-23 23:34] LABS: ANISOCYTOSIS 3+; MACROCYTOSIS 1+; OVALOCYTE 1+; TARGET CELLS 1+
[2022-12-23 23:35] LABS: BILIRUBIN,TOTAL 0.4 mg/dL (0.2-1); TOT PROT 6.4 g/dl (6.4-8.2)
[2022-12-23 23:38] LABS: N-TERMINAL BNP 28.8 pg/ml (5-125)
[2022-12-24] MEDS ORDERED: ENOXAPARIN NA (PORCINE) 100 MG/1 ML DISP.SYRIN SQ ONE ×2 (00:41→05:12)
[2022-12-24] MEDS ORDERED: chlordiazePOXIDE HCL 25 MG CAPSULE PO PRN ×3 (01:32→08:33)
[2022-12-24] MEDS: chlordiazePOXIDE HCL 25 MG CAPSULE PO SCH ×2 (03:30→05:15)
[2022-12-24 07:58] VITALS: BMI 38.6
[2022-12-24] MEDS ORDERED: LORazepam 2 MG/ML SDV VIAL IVPUSH PRN (08:08)
[2022-12-24] MEDS ORDERED: chlordiazePOXIDE HCL 25 MG CAPSULE PO SCH (08:33)
[2022-12-24] MEDS: APIXABAN 5 MG TABLET PO SCH ×2 (10:31→21:57)
[2022-12-24] MEDS: FOLIC ACID 1 MG TABLET (FP) PO SCH ×2 (10:31→10:33)
[2022-12-24] MEDS: THIAMINE HCL 100 MG TABLET (FP) PO SCH (10:31)
[2022-12-24 10:42] LABS: HEMATOCRIT 27.6 % (35.4-49); HEMOGLOBIN 8.6 GM/dL (11.7-16.9); MEAN CELL VOLUME 71.2 fl (80-96); PLATELET COUNT 205 10^3/uL (134-434); RBC 3.88 M/mm3 (4.00-5.60); RDW 22.8 % (11.9-15.9); WHITE BLOOD COUNT 5.7 K/mm3 (4.0-10.0)
[2022-12-24 11:12] LABS: POTASSIUM 3.3 mmol/L (3.5-5.1)
[2022-12-24 11:22] LABS: CALCIUM 8.3 mg/dL (8.5-10.1)
[2022-12-24 11:23] LABS: BLOOD UREA NITROGEN 6.8 mg/dL (7-18); MAGNESIUM 1.3 mg/dL (1.8-2.4)
[2022-12-24 11:26] LABS: CREATININE 0.6 mg/dL (0.55-1.3); PHOSPHOROUS 2.8 mg/dL (2.5-4.9)
[2022-12-24] MEDS ORDERED: MAGNESIUM SULFATE IN WATER 2 GM/50 ML IVPB IVPB ONE (14:45)
[2022-12-24] MEDS ORDERED: POTASSIUM CHLORIDE TABS 20 MEQ TABLET.ER (FP) PO ONE (14:46)
[2022-12-25] MEDS ORDERED: chlordiazePOXIDE HCL 25 MG CAPSULE PO SCH (05:00)
[2022-12-25] MEDS ORDERED: chlordiazePOXIDE HCL 10 MG CAPSULE PO SCH (05:00)
[2022-12-25 10:04] LABS: POTASSIUM 3.1 mmol/L (3.5-5.1)
[2022-12-25 10:12] LABS: HEMATOCRIT 32.1 % (35.4-49); HEMOGLOBIN 9.9 GM/dL (11.7-16.9); MCH 22.5 pg (25.7-33.7); MCHC 30.7 g/dl (32.0-35.9); MEAN CELL VOLUME 73.1 fl (80-96); MEAN PLT VOLUME 7.9 fl (7.5-11.1); PLATELET COUNT 245 10^3/uL (134-434); RBC 4.39 M/mm3 (4.00-5.60); RDW 22.8 % (11.9-15.9); WHITE BLOOD COUNT 7.4 K/mm3 (4.0-10.0)
[2022-12-25 10:21] LABS: BLOOD UREA NITROGEN 5.8 mg/dL (7-18); CALCIUM 8.6 mg/dL (8.5-10.1); MAGNESIUM 1.3 mg/dL (1.8-2.4)
[2022-12-25 10:23] LABS: BILIRUBIN,TOTAL 1.4 mg/dL (0.2-1); PHOSPHOROUS 2.6 mg/dL (2.5-4.9); TOT PROT 6.3 g/dl (6.4-8.2)
[2022-12-25 10:24] LABS: CREATININE 0.6 mg/dL (0.55-1.3)
[2022-12-25] MEDS: FOLIC ACID 1 MG TABLET (FP) PO SCH (10:45)
[2022-12-25] MEDS: THIAMINE HCL 100 MG TABLET (FP) PO SCH (10:45)
[2022-12-25] MEDS: APIXABAN 5 MG TABLET PO SCH (10:45)
[2022-12-25 14:12] VITALS: BP 145/74; PULSE 56; RESP 18; TEMP 98.9
[2022-12-26] MEDS ORDERED: chlordiazePOXIDE HCL 10 MG CAPSULE PO PRN
[2022-12-26] MEDS ORDERED: chlordiazePOXIDE HCL 10 MG CAPSULE PO SCH ×2 (05:00)
[2022-12-27] MEDS ORDERED: chlordiazePOXIDE HCL 10 MG CAPSULE PO ONE (05:00)
[2022-12-27] MEDS ORDERED: chlordiazePOXIDE HCL 10 MG CAPSULE PO SCH (05:00)
[2022-12-28] MEDS ORDERED: chlordiazePOXIDE HCL 10 MG CAPSULE PO ONE (05:00)
== END 2022-12-25 15:45 | disposition home or self-care (01) ==
LOC: JER 20:47 → JERBED 12-24 00:44 → J5S 12-24 06:39 → J8W 12-25 13:14
PROVIDERS: ADMIT Internal Medicine; ATTEND Internal Medicine
DX: R10.10 Upper abdominal pain, unspecified (principal); I10 Essential (primary) hypertension; E78.5 Hyperlipidemia, unspecified; I48.91 Unspecified atrial fibrillation; J44.9 Chronic obstructive pulmonary disease, unspecified; G89.29 Other chronic pain; M54.9 Dorsalgia, unspecified; C45.9 Mesothelioma, unspecified; E87.6 Hypokalemia; I26.99 Other pulmonary embolism without acute cor pulmonale; Z59.00 Homelessness unspecified
CPT/HCPCS: 36415; 71045-TC-FY; 80048; 80053; 80307; 83735; 83880; 84100; 84484; 85025; 85027; 85610; 85730; 93005; 93010; 99285-25; G0378

== ENCOUNTER 2022-12-25 21:52 | Emergency (ER) | payer OTHER ==
[2022-12-25 21:58] VITALS: BP 90/61; PULSE 98; RESP 20; TEMP 98.2; BMI 39.4
== END 2022-12-26 06:29 | disposition home or self-care (01) ==
LOC: JER 21:52
DX: F10.920 Alcohol use, unspecified with intoxication, uncomplicated (principal)
CPT/HCPCS: 99281-25

== ENCOUNTER 2022-12-26 20:35 | Emergency (ER) | payer OTHER ==
[2022-12-26 20:41] VITALS: BP 130/90; PULSE 80; RESP 20; TEMP 97.6; BMI 31.5
[2022-12-26] MEDS ORDERED: POTASSIUM CHLORIDE ORAL LIQUID 20 MEQ/15 ML PO ONE (21:37)
[2022-12-27] MEDS ORDERED: SIMETHICONE 80 MG TAB.CHEW (FP) PO ONE (06:42)
[2022-12-27] MEDS ORDERED: chlordiazePOXIDE HCL 25 MG CAPSULE PO ONE (06:42)
[2022-12-27] MEDS ORDERED: SIMETHICONE 80 MG TAB.CHEW (FP) ONE (06:51)
[2022-12-27] MEDS ORDERED: chlordiazePOXIDE HCL 25 MG CAPSULE ONE (06:51)
== END 2022-12-27 08:00 | disposition home or self-care (01) ==
LOC: JER 20:35
DX: M54.9 Dorsalgia, unspecified (principal); R06.02 Shortness of breath; R07.89 Other chest pain; G89.29 Other chronic pain
CPT/HCPCS: 99283-25

== ENCOUNTER 2022-12-30 12:50 | Emergency (ER) | payer OTHER ==
[2022-12-30 13:02] VITALS: BP 138/84; PULSE 87; RESP 18; TEMP 98.4; BMI 31.9
[2022-12-30] MEDS ORDERED: IBUPROFEN 400 MG TABLET (FP) PO ONE (14:05)
== END 2022-12-30 14:30 | disposition left against medical advice (07) ==
LOC: JER 12:50
DX: M54.50 Low back pain, unspecified (principal)
CPT/HCPCS: 99282-25

== ENCOUNTER 2023-01-08 21:04 | Emergency (ER) | payer OTHER ==
[2023-01-08 21:20] VITALS: BP 121/68; PULSE 93; RESP 18; TEMP 97.8; BMI 37.3
== END 2023-01-09 05:06 | disposition left against medical advice (07) ==
LOC: JER 21:04
DX: F10.10 Alcohol abuse, uncomplicated (principal)
CPT/HCPCS: 99281-25

== ENCOUNTER 2023-01-09 15:15 | Emergency (ER) | payer OTHER ==
[2023-01-09 15:27] VITALS: BP 100/53; PULSE 90; RESP 16; TEMP 98.6; BMI 31.5
== END 2023-01-09 20:31 | disposition left against medical advice (07) ==
LOC: JERFT 15:15 → JER 15:15 → JERFT 20:31
DX: R63.8 Other symptoms and signs concerning food and fluid intake (principal)
CPT/HCPCS: 99282-25

== ENCOUNTER 2023-01-11 20:41 | Emergency (ER) | payer OTHER ==
[2023-01-11 20:45] VITALS: BMI 28.7
[2023-01-11] MEDS ORDERED: ACETAMINOPHEN 325 MG TABLET (FP) PO ONE (21:29)
[2023-01-11] MEDS ORDERED: ACETAMINOPHEN 325 MG TABLET (FP) ONE (22:36)
[2023-01-12 05:43] VITALS: BP 126/84; PULSE 91; RESP 20; TEMP 98.1
== END 2023-01-12 05:43 | disposition home or self-care (01) ==
LOC: JER 20:41
DX: M54.50 Low back pain, unspecified (principal); F10.10 Alcohol abuse, uncomplicated
CPT/HCPCS: 99283-25

== ENCOUNTER 2023-01-13 20:03 | Emergency (ER) | payer OTHER ==
[2023-01-13 20:07] VITALS: BMI 31.5
[2023-01-14 05:50] VITALS: BP 124/76; PULSE 77; RESP 15; TEMP 98.1
== END 2023-01-14 05:50 | disposition home or self-care (01) ==
LOC: JER 20:03
DX: Z59.00 Homelessness unspecified (principal)
CPT/HCPCS: 99282-25

== ENCOUNTER 2023-01-15 16:24 | Emergency (ER) | payer OTHER ==
[2023-01-15 16:34] VITALS: PULSE 89; RESP 18; TEMP 98.2; BMI 33.0
[2023-01-15 16:39] VITALS: BP 127/62
== END 2023-01-15 18:43 | disposition home or self-care (01) ==
LOC: JER 16:24
DX: R06.02 Shortness of breath (principal); F10.929 Alcohol use, unspecified with intoxication, unspecified; Z59.00 Homelessness unspecified
CPT/HCPCS: 99281-25

== ENCOUNTER 2023-01-18 17:56 | Emergency (ER) | payer OTHER ==
[2023-01-18 18:06] VITALS: BP 144/82; PULSE 92; RESP 18; TEMP 98.7; BMI 35.9
== END 2023-01-18 19:10 | disposition left against medical advice (07) ==
LOC: JER 17:56
DX: R06.02 Shortness of breath (principal)
CPT/HCPCS: 99281-25

== ENCOUNTER 2023-01-18 23:19 | Emergency (ER) | payer OTHER ==
[2023-01-18 23:34] VITALS: BP 136/79; PULSE 87; RESP 18; TEMP 97; BMI 42.9
== END 2023-01-19 06:02 | disposition home or self-care (01) ==
LOC: JER 23:19
DX: F10.920 Alcohol use, unspecified with intoxication, uncomplicated (principal)
CPT/HCPCS: 99283-25; 99285-25

== ENCOUNTER 2023-01-19 17:07 | Emergency (ER) | payer OTHER ==
[2023-01-19 17:44] VITALS: BP 113/74; PULSE 90; RESP 20; TEMP 98.2; BMI 32.5
[2023-01-19] MEDS ORDERED: METHOCARBAMOL 500 MG TABLET PO ONE (19:21)
[2023-01-19] MEDS ORDERED: chlordiazePOXIDE HCL 25 MG CAPSULE PO ONE (19:59)
[2023-01-19] MEDS ORDERED: chlordiazePOXIDE HCL 25 MG CAPSULE ONE (20:00)
[2023-01-19] MEDS ORDERED: METHOCARBAMOL 500 MG TABLET ONE (20:00)
[2023-01-19] MEDS ORDERED: MAG HYDROX/AL HYDROX/SIMETH 30 ML UNIT-DOSE CUP ONE (20:01)
== END 2023-01-20 00:30 | disposition home or self-care (01) ==
LOC: JER 17:07
DX: R06.02 Shortness of breath (principal); M54.9 Dorsalgia, unspecified; G89.29 Other chronic pain; F10.930 Alcohol use, unspecified with withdrawal, uncomplicated
CPT/HCPCS: 99283-25

== ENCOUNTER 2023-01-20 15:54 | Emergency (ER) | payer OTHER ==
[2023-01-20 16:02] VITALS: BP 109/57; PULSE 98; RESP 20; TEMP 97.8; BMI 33.0
== END 2023-01-20 19:50 | disposition left against medical advice (07) ==
LOC: JER 15:54
DX: R06.02 Shortness of breath (principal)
CPT/HCPCS: 99281-25

== ENCOUNTER 2023-01-27 20:26 | Emergency (ER) | payer OTHER ==
[2023-01-27 20:34] VITALS: RESP 20; TEMP 98.2; BMI 40.3
[2023-01-27] MEDS ORDERED: ACETAMINOPHEN 500 MG TABLET (FP) PO ONE (22:03)
[2023-01-28 06:26] VITALS: BP 144/86; PULSE 92
== END 2023-01-28 06:26 | disposition home or self-care (01) ==
LOC: JER 20:26
DX: S16.1XXA Strain of muscle, fascia and tendon at neck level, initial encounter (principal); S00.81XA Abrasion of other part of head, initial encounter; M54.2 Cervicalgia; R51.9 Headache, unspecified; Y04.0XXA Assault by unarmed brawl or fight, initial encounter; Y93.9 Activity, unspecified; Y92.9 Unspecified place or not applicable; Z59.00 Homelessness unspecified
CPT/HCPCS: 70450-TC; 70486-TC; 72125-TC; 99284-25

== ENCOUNTER 2023-01-31 22:05 | Inpatient (IN) | payer OTHER ==
[2023-02-01] MEDS ORDERED: DALBAVANCIN HCL 1,500 MG in DEXTROSE 5%-WATER - 500 ML IVPB ONE (00:31)
[2023-02-01] MEDS ORDERED: DALBAVANCIN HCL 500 MG VIAL (RESTRICTED TO ID ONLY) IVPB ONE (01:15)
[2023-02-01 01:17] LABS: BASO % 1.4 % (0-2.0); EOS % 2.1 % (0-4.5); HEMATOCRIT 27.2 % (35.4-49); HEMOGLOBIN 8.3 GM/dL (11.7-16.9); LYMPH % 24.3 % (8-40); MCHC 30.6 g/dl (32.0-35.9); MEAN CELL VOLUME 72.1 fl (80-96); MEAN PLT VOLUME 7.1 fl (7.5-11.1); MONO % 9.2 % (3.8-10.2); PLATELET COUNT 393 10^3/uL (134-434); RBC 3.77 M/mm3 (4.00-5.60); RDW 21.9 % (11.9-15.9); WHITE BLOOD COUNT 7.2 K/mm3 (4.0-10.0)
[2023-02-01 01:33] LABS: ALBUMIN 2.9 g/dl (3.4-5.0); BLOOD UREA NITROGEN 7.6 mg/dL (7-18); CALCIUM 7.9 mg/dL (8.5-10.1)
[2023-02-01 01:36] LABS: CREATININE 0.7 mg/dL (0.55-1.3)
[2023-02-01 01:38] LABS: BILIRUBIN,TOTAL 0.2 mg/dL (0.2-1); TOT PROT 6.2 g/dl (6.4-8.2)
[2023-02-01 02:14] LABS: ANISOCYTOSIS 2+; MACROCYTOSIS 0; OVALOCYTE 2+; TEAR DROP CELLS 1+
[2023-02-01] MEDS ORDERED: METHOCARBAMOL 500 MG TABLET PO ONE (05:34)
[2023-02-01] MEDS ORDERED: METHOCARBAMOL 500 MG TABLET ONE (06:21)
[2023-02-01] MEDS ORDERED: dilTIAZem HCL 50 MG/10 ML - 10 ML VIAL IVPUSH ONE ×2 (08:40→10:24)
[2023-02-01] MEDS ORDERED: dilTIAZem HCL 125 MG/25 ML - 25 ML VIAL ONE (08:42)
[2023-02-01] MEDS ORDERED: dilTIAZem HCL 30 MG TABLET PO ONE (08:50)
[2023-02-01] MEDS ORDERED: dilTIAZem HCL 30 MG TABLET ONE (08:54)
[2023-02-01] MEDS ORDERED: CEFTRIAXONE 1,000 MG in DEXTROSE 5%-WATER - 50 ML IVPB ONE (10:25)
[2023-02-01] MEDS ORDERED: AZITHROMYCIN IVPB 500 MG in DEXTROSE 5%-WATER - 250 ML IVPB ONE (10:25)
[2023-02-01] MEDS ORDERED: AZITHROMYCIN IVPB 500 MG/250 ML BAG IVPB ONE (10:29)
[2023-02-01] MEDS ORDERED: CEFTRIAXONE 1 GM/50 ML BAG ONE (10:29)
[2023-02-01 10:51] LABS: N-TERMINAL BNP 53.1 pg/ml (5-125)
[2023-02-01] MEDS ORDERED: ACETAMINOPHEN 500 MG TABLET (FP) PO PRN (11:39)
[2023-02-01] MEDS ORDERED: NAPROXEN 250 MG TABLET PO PRN (11:40)
[2023-02-01] MEDS ORDERED: chlordiazePOXIDE HCL 25 MG CAPSULE ONE ×3 (13:25→22:44)
[2023-02-01] MEDS ORDERED: ENOXAPARIN NA (PORCINE) 40 MG/0.4 ML DISP.SYRIN SQ ONE (13:25)
[2023-02-01] MEDS ORDERED: FUROSEMIDE 20 MG TABLET (FP) ONE (13:25)
[2023-02-01] MEDS ORDERED: THIAMINE HCL 100 MG TABLET (FP) ONE (13:26)
[2023-02-01] MEDS: THIAMINE HCL 100 MG TABLET (FP) PO SCH (13:34)
[2023-02-01] MEDS: ENOXAPARIN NA (PORCINE) 120 MG/0.8 ML DISP.SYRIN SQ SCH ×2 (13:34→22:49)
[2023-02-01] MEDS: FUROSEMIDE 40 MG/4 ML INJECTABLE VIAL IVPUSH SCH (13:34)
[2023-02-01] MEDS: chlordiazePOXIDE HCL 25 MG CAPSULE PO SCH ×2 (13:35→22:49)
[2023-02-01] MEDS: chlordiazePOXIDE HCL 25 MG CAPSULE PO PRN (17:51)
[2023-02-01] MEDS ORDERED: ENOXAPARIN NA (PORCINE) 100 MG/1 ML DISP.SYRIN SQ ONE (22:44)
[2023-02-01] MEDS ORDERED: DOXYCYCLINE HYCLATE 100 MG CAPSULE PO ONE (22:44)
[2023-02-01] MEDS: DOXYCYCLINE INJECTION 100 MG in DEXTROSE 5%-WATER 100 ML IVPB SCH (22:49)
[2023-02-02] MEDS ORDERED: oxyCODONE HCL 5 MG TABLET PO ONE (02:03)
[2023-02-02] MEDS ORDERED: oxyCODONE HCL 5 MG TABLET ONE (02:35)
[2023-02-02] MEDS ORDERED: chlordiazePOXIDE HCL 25 MG CAPSULE ONE ×3 (06:40→21:27)
[2023-02-02] MEDS: chlordiazePOXIDE HCL 25 MG CAPSULE PO SCH ×4 (06:43→23:40)
[2023-02-02 08:04] LABS: WHITE BLOOD COUNT 10.4 K/mm3 (4.0-10.0)
[2023-02-02 08:05] LABS: BASO % 0.8 % (0-2.0); EOS % 1.6 % (0-4.5); HEMOGLOBIN 9.1 GM/dL (11.7-16.9); LYMPH % 12.9 % (8-40); MCH 22.4 pg (25.7-33.7); MCHC 31.5 g/dl (32.0-35.9); MEAN PLT VOLUME 7.4 fl (7.5-11.1); MONO % 9.3 % (3.8-10.2); NEUT % 75.4 % (42.8-82.8); PLATELET COUNT 383 10^3/uL (134-434); RBC 4.08 M/mm3 (4.00-5.60); RDW 21.4 % (11.9-15.9)
[2023-02-02 08:30] LABS: POTASSIUM 3.6 mmol/L (3.5-5.1)
[2023-02-02 08:38] LABS: CALCIUM 7.9 mg/dL (8.5-10.1)
[2023-02-02 08:39] LABS: BLOOD UREA NITROGEN 5.2 mg/dL (7-18)
[2023-02-02 08:42] LABS: CREATININE 0.6 mg/dL (0.55-1.3)
[2023-02-02] MEDS ORDERED: CEFTRIAXONE 1 GM/50 ML BAG ONE (09:08)
[2023-02-02] MEDS: CEFTRIAXONE 1 GM in DEXTROSE 5%-WATER - 50 ML IVPB SCH (09:22)
[2023-02-02] MEDS: THIAMINE HCL 100 MG TABLET (FP) PO SCH (09:22)
[2023-02-02] MEDS: ENOXAPARIN NA (PORCINE) 120 MG/0.8 ML DISP.SYRIN SQ SCH (09:22)
[2023-02-02] MEDS: FUROSEMIDE 40 MG/4 ML INJECTABLE VIAL IVPUSH SCH (09:22)
[2023-02-02] MEDS: FOLIC ACID 1 MG TABLET (FP) PO SCH (09:22)
[2023-02-02] MEDS ORDERED: DOXYCYCLINE HYCLATE 100 MG VIAL ONE ×2 (09:53→21:28)
[2023-02-02] MEDS: DOXYCYCLINE INJECTION 100 MG in DEXTROSE 5%-WATER 100 ML IVPB SCH ×2 (09:56→23:47)
[2023-02-02] MEDS ORDERED: ACETAMINOPHEN 500 MG TABLET (FP) ONE (11:29)
[2023-02-02] MEDS ORDERED: ENOXAPARIN NA (PORCINE) 80 MG/0.8 ML DISP.SYRIN SQ ONE (21:28)
[2023-02-03 00:20] VITALS: BMI 40.8
[2023-02-03] MEDS: ENOXAPARIN NA (PORCINE) 120 MG/0.8 ML DISP.SYRIN SQ SCH ×3 (00:44→21:27)
[2023-02-03] MEDS: chlordiazePOXIDE HCL 25 MG CAPSULE PO SCH ×3 (05:47→21:24)
[2023-02-03 07:43] LABS: HEMATOCRIT 29.3 % (35.4-49); MCH 22.1 pg (25.7-33.7); MCHC 30.7 g/dl (32.0-35.9); MEAN PLT VOLUME 7.6 fl (7.5-11.1); PLATELET COUNT 379 10^3/uL (134-434); RBC 4.06 M/mm3 (4.00-5.60); RDW 21.8 % (11.9-15.9); WHITE BLOOD COUNT 9.5 K/mm3 (4.0-10.0)
[2023-02-03 08:14] LABS: POTASSIUM 3.3 mmol/L (3.5-5.1)
[2023-02-03 08:23] LABS: PHOSPHOROUS 2.9 mg/dL (2.5-4.9)
[2023-02-03 08:24] LABS: BILIRUBIN,TOTAL 0.6 mg/dL (0.2-1); CREATININE 0.6 mg/dL (0.55-1.3)
[2023-02-03 08:25] LABS: ALBUMIN 2.6 g/dl (3.4-5.0); BLOOD UREA NITROGEN 7.8 mg/dL (7-18); TOT PROT 5.9 g/dl (6.4-8.2)
[2023-02-03 08:28] LABS: MAGNESIUM 1.2 mg/dL (1.8-2.4)
[2023-02-03 08:29] LABS: CALCIUM 8.2 mg/dL (8.5-10.1)
[2023-02-03] MEDS: CEFTRIAXONE 1 GM in DEXTROSE 5%-WATER - 50 ML IVPB SCH (10:10)
[2023-02-03] MEDS: FUROSEMIDE 40 MG/4 ML INJECTABLE VIAL IVPUSH SCH ×2 (10:10→10:33)
[2023-02-03] MEDS: THIAMINE HCL 100 MG TABLET (FP) PO SCH ×2 (10:10→10:33)
[2023-02-03] MEDS: FOLIC ACID 1 MG TABLET (FP) PO SCH ×2 (10:10→10:33)
[2023-02-03] MEDS: chlordiazePOXIDE HCL 25 MG CAPSULE PO PRN (10:26)
[2023-02-03] MEDS: DOXYCYCLINE INJECTION 100 MG in DEXTROSE 5%-WATER 100 ML IVPB SCH (10:43)
[2023-02-03] MEDS ORDERED: METHOCARBAMOL 500 MG TABLET PO ONE (14:45)
[2023-02-03] MEDS ORDERED: chlordiazePOXIDE HCL 25 MG CAPSULE PO PRN (16:44)
[2023-02-03] MEDS ORDERED: ACETAMINOPHEN 500 MG TABLET (FP) PO PRN (16:44)
[2023-02-03] MEDS ORDERED: NAPROXEN 250 MG TABLET PO PRN (16:44)
[2023-02-03] MEDS ORDERED: POTASSIUM CHLORIDE TABS 10 MEQ TABLET.ER (FP) PO ONE (16:56)
[2023-02-03] MEDS ORDERED: MAGNESIUM 2GM/50ML STERILE WATER IVPB IVPB ONE (17:01)
[2023-02-03] MEDS: DOXYCYCLINE HYCLATE 100 MG CAPSULE PO SCH (18:15)
[2023-02-04] MEDS: chlordiazePOXIDE HCL 25 MG CAPSULE PO SCH ×3 (06:12→22:18)
[2023-02-04] MEDS ORDERED: FUROSEMIDE 40 MG/4 ML INJECTABLE VIAL IVPUSH SCH (10:00)
[2023-02-04] MEDS: FOLIC ACID 1 MG TABLET (FP) PO SCH (10:28)
[2023-02-04] MEDS: FUROSEMIDE 40 MG TABLET (FP) PO SCH (10:29)
[2023-02-04] MEDS: ENOXAPARIN NA (PORCINE) 120 MG/0.8 ML DISP.SYRIN SQ SCH ×2 (10:29→22:19)
[2023-02-04] MEDS: METOPROLOL TARTRATE 50 MG TABLET (FP) PO SCH ×2 (10:29→22:19)
[2023-02-04] MEDS: CEFTRIAXONE 1 GM in DEXTROSE 5%-WATER - 50 ML IVPB SCH (10:30)
[2023-02-04] MEDS: DOXYCYCLINE HYCLATE 100 MG CAPSULE PO SCH ×2 (10:30→17:03)
[2023-02-04] MEDS: THIAMINE HCL 100 MG TABLET (FP) PO SCH (10:30)
[2023-02-04 12:14] LABS: HEMATOCRIT 31.8 % (35.4-49); HEMOGLOBIN 9.6 GM/dL (11.7-16.9); MCH 21.5 pg (25.7-33.7); MCHC 30.3 g/dl (32.0-35.9); MEAN CELL VOLUME 71.1 fl (80-96); MEAN PLT VOLUME 7.2 fl (7.5-11.1); PLATELET COUNT 426 10^3/uL (134-434); RBC 4.47 M/mm3 (4.00-5.60); RDW 21.8 % (11.9-15.9); WHITE BLOOD COUNT 9.9 K/mm3 (4.0-10.0)
[2023-02-04] MEDS ORDERED: levoFLOXacin 750 MG TABLET PO SCH (13:00)
[2023-02-04 13:53] LABS: POTASSIUM 3.4 mmol/L (3.5-5.1)
[2023-02-04 14:20] LABS: ALBUMIN 2.8 g/dl (3.4-5.0); BLOOD UREA NITROGEN 9.5 mg/dL (7-18); CALCIUM 8.6 mg/dL (8.5-10.1); CREATININE 0.6 mg/dL (0.55-1.3); MAGNESIUM 1.5 mg/dL (1.8-2.4)
[2023-02-04 14:23] LABS: PHOSPHOROUS 3.4 mg/dL (2.5-4.9)
[2023-02-04 14:24] LABS: BILIRUBIN,TOTAL 0.6 mg/dL (0.2-1); TOT PROT 6.2 g/dl (6.4-8.2)
[2023-02-04] MEDS ORDERED: MAGNESIUM OXIDE 400 MG TABLET (FP) PO ONE (16:39)
[2023-02-05] MEDS: chlordiazePOXIDE HCL 25 MG CAPSULE PO SCH (05:29)
[2023-02-05] MEDS: FUROSEMIDE 40 MG TABLET (FP) PO SCH (10:31)
[2023-02-05] MEDS: FOLIC ACID 1 MG TABLET (FP) PO SCH (10:31)
[2023-02-05] MEDS: ENOXAPARIN NA (PORCINE) 120 MG/0.8 ML DISP.SYRIN SQ SCH ×2 (10:32→22:48)
[2023-02-05] MEDS: METOPROLOL TARTRATE 50 MG TABLET (FP) PO SCH ×2 (10:32→22:48)
[2023-02-05] MEDS: THIAMINE HCL 100 MG TABLET (FP) PO SCH (10:33)
[2023-02-05] MEDS: DOXYCYCLINE HYCLATE 100 MG CAPSULE PO SCH ×2 (10:33→17:22)
[2023-02-05] MEDS: CEFTRIAXONE 1 GM in DEXTROSE 5%-WATER - 50 ML IVPB SCH (10:33)
[2023-02-06] MEDS: FUROSEMIDE 40 MG TABLET (FP) PO SCH (10:36)
[2023-02-06] MEDS: FOLIC ACID 1 MG TABLET (FP) PO SCH (10:36)
[2023-02-06] MEDS: METOPROLOL TARTRATE 50 MG TABLET (FP) PO SCH ×2 (10:37→21:57)
[2023-02-06] MEDS: THIAMINE HCL 100 MG TABLET (FP) PO SCH (10:37)
[2023-02-06] MEDS: ENOXAPARIN NA (PORCINE) 120 MG/0.8 ML DISP.SYRIN SQ SCH ×2 (10:37→21:57)
[2023-02-06] MEDS: CEFTRIAXONE 1 GM in DEXTROSE 5%-WATER - 50 ML IVPB SCH (10:37)
[2023-02-06] MEDS: DOXYCYCLINE HYCLATE 100 MG CAPSULE PO SCH ×2 (11:09→17:10)
[2023-02-07 06:18] VITALS: BP 132/69; PULSE 84; RESP 18; TEMP 98.2
[2023-02-07] MEDS: METOPROLOL TARTRATE 50 MG TABLET (FP) PO SCH (10:21)
[2023-02-07] MEDS: FUROSEMIDE 40 MG TABLET (FP) PO SCH (10:21)
[2023-02-07] MEDS: FOLIC ACID 1 MG TABLET (FP) PO SCH (10:21)
[2023-02-07] MEDS: DOXYCYCLINE HYCLATE 100 MG CAPSULE PO SCH (10:22)
[2023-02-07] MEDS: ENOXAPARIN NA (PORCINE) 120 MG/0.8 ML DISP.SYRIN SQ SCH (10:22)
[2023-02-07] MEDS: THIAMINE HCL 100 MG TABLET (FP) PO SCH (10:23)
== END 2023-02-07 01:20 | disposition home or self-care (01) | DRG 602 ==
LOC: JER 22:05 → JERBED 02-01 08:01 → J4W 02-02 23:24 → J8W 02-03 16:42
PROVIDERS: ADMIT Internal Medicine; ATTEND Nurse Practitioner Acute Care
DX: L03.115 Cellulitis of right lower limb (principal); J18.9 Pneumonia, unspecified organism; Z68.41 Body mass index [BMI] 40.0-44.9, adult; J44.9 Chronic obstructive pulmonary disease, unspecified; I10 Essential (primary) hypertension; F10.20 Alcohol dependence, uncomplicated; C45.9 Mesothelioma, unspecified; Z59.00 Homelessness unspecified; K74.60 Unspecified cirrhosis of liver; I48.0 Paroxysmal atrial fibrillation; E66.01 Morbid (severe) obesity due to excess calories; I71.40 Abdominal aortic aneurysm, without rupture, unspecified; E87.6 Hypokalemia; E83.42 Hypomagnesemia
CPT/HCPCS: 36415; 71045-TC-FY; 74174-TC; 80048; 80053; 83690; 83735; 83880; 84100; 84484; 85025; 85027; 86140; 87040; 87070; 87186; 87205; 93005; 93010; 99281-25; 99284-25; 99285-25; J0875

== ENCOUNTER 2023-02-09 21:27 | Emergency (ER) | payer OTHER ==
[2023-02-09 21:49] VITALS: BP 113/65; PULSE 91; RESP 18; TEMP 98; BMI 37.1
== END 2023-02-10 06:16 | disposition home or self-care (01) ==
LOC: JER 21:27
DX: M54.9 Dorsalgia, unspecified (principal); G89.29 Other chronic pain; F10.229 Alcohol dependence with intoxication, unspecified; Y90.9 Presence of alcohol in blood, level not specified
CPT/HCPCS: 99282-25

== ENCOUNTER 2023-02-10 14:03 | Emergency (ER) | payer OTHER ==
[2023-02-10 14:33] VITALS: BMI 35.9
[2023-02-10 16:25] LABS: BASO % 0.9 % (0-2.0); EOS % 2.7 % (0-4.5); HEMATOCRIT 30.8 % (35.4-49); HEMOGLOBIN 9.2 GM/dL (11.7-16.9); LYMPH % 21.8 % (8-40); MCH 21.5 pg (25.7-33.7); MEAN CELL VOLUME 71.6 fl (80-96); MEAN PLT VOLUME 7.2 fl (7.5-11.1); MONO % 9.3 % (3.8-10.2); NEUT % 65.3 % (42.8-82.8); PLATELET COUNT 477 10^3/uL (134-434); RBC 4.31 M/mm3 (4.00-5.60); RDW 20.8 % (11.9-15.9); WHITE BLOOD COUNT 8.4 K/mm3 (4.0-10.0)
[2023-02-10 16:43] LABS: POTASSIUM 3.9 mmol/L (3.5-5.1)
[2023-02-10 16:45] LABS: CALCIUM 8.6 mg/dL (8.5-10.1)
[2023-02-10 16:46] LABS: ALBUMIN 3.2 g/dl (3.4-5.0); BLOOD UREA NITROGEN 11.2 mg/dL (7-18); MAGNESIUM 1.6 mg/dL (1.8-2.4)
[2023-02-10 16:49] LABS: CREATININE 0.7 mg/dL (0.55-1.3)
[2023-02-10 16:51] LABS: ANISOCYTOSIS 3+; BILIRUBIN,TOTAL 0.3 mg/dL (0.2-1); MACROCYTOSIS 0; OVALOCYTE 1+; TARGET CELLS 1+
[2023-02-10] MEDS ORDERED: MAGNESIUM OXIDE 400 MG TABLET (FP) PO ONE (16:55)
[2023-02-10 17:13] VITALS: BP 136/87; PULSE 82; RESP 14; TEMP 98.8
== END 2023-02-10 17:30 | disposition home or self-care (01) ==
LOC: JER 14:03
DX: M54.9 Dorsalgia, unspecified (principal); G89.29 Other chronic pain; R07.9 Chest pain, unspecified; R06.02 Shortness of breath; I50.9 Heart failure, unspecified; F10.29 Alcohol dependence with unspecified alcohol-induced disorder; Y90.9 Presence of alcohol in blood, level not specified
CPT/HCPCS: 36415; 80053; 83735; 84484; 85025; 99283-25

== ENCOUNTER 2023-02-10 22:52 | Emergency (ER) | payer OTHER ==
[2023-02-11 00:22] VITALS: BP 131/75; PULSE 89; RESP 20; TEMP 98.2; BMI 33.0
== END 2023-02-11 06:09 | disposition home or self-care (01) ==
LOC: JER 22:52
DX: M54.9 Dorsalgia, unspecified (principal); F10.929 Alcohol use, unspecified with intoxication, unspecified
CPT/HCPCS: 93005; 93010; 99283-25

== ENCOUNTER 2023-02-16 20:31 | Emergency (ER) | payer OTHER ==
[2023-02-16 20:41] VITALS: RESP 18; BMI 28.7
[2023-02-17 04:48] VITALS: BP 112/62; PULSE 92; TEMP 99
== END 2023-02-17 06:56 | disposition home or self-care (01) ==
LOC: JER 20:31
DX: M54.9 Dorsalgia, unspecified (principal); G89.29 Other chronic pain; Z59.00 Homelessness unspecified
CPT/HCPCS: 93005; 93010; 99283-25

== ENCOUNTER 2023-02-19 20:24 | Emergency (ER) | payer OTHER ==
[2023-02-19 20:56] VITALS: BMI 36.1
[2023-02-19] MEDS ORDERED: chlordiazePOXIDE HCL 25 MG CAPSULE PO ONE (22:35)
[2023-02-19] MEDS ORDERED: METHOCARBAMOL 500 MG TABLET PO ONE (22:35)
[2023-02-19] MEDS ORDERED: chlordiazePOXIDE HCL 25 MG CAPSULE ONE (23:06)
[2023-02-19] MEDS ORDERED: METHOCARBAMOL 500 MG TABLET ONE (23:06)
[2023-02-20 02:22] VITALS: BP 127/76; PULSE 98; RESP 18; TEMP 98.1
== END 2023-02-20 07:03 | disposition home or self-care (01) ==
LOC: JER 20:24
DX: M54.9 Dorsalgia, unspecified (principal); G89.29 Other chronic pain
CPT/HCPCS: 99283-25

== ENCOUNTER 2023-02-24 13:08 | Emergency (ER) | payer OTHER ==
[2023-02-24 13:21] VITALS: BP 125/49; PULSE 92; RESP 18; TEMP 98.6; BMI 41.9
[2023-02-24] MEDS ORDERED: METHOCARBAMOL 500 MG TABLET PO ONE (16:52)
[2023-02-24] MEDS ORDERED: METHOCARBAMOL 500 MG TABLET ONE (16:56)
== END 2023-02-24 17:10 | disposition home or self-care (01) ==
LOC: JER 13:08
DX: M54.9 Dorsalgia, unspecified (principal); G89.29 Other chronic pain
CPT/HCPCS: 99283-25

== ENCOUNTER 2023-02-28 14:16 | Emergency (ER) | payer OTHER ==
[2023-02-28 14:24] VITALS: BMI 35.9
[2023-02-28] MEDS ORDERED: IBUPROFEN 400 MG TABLET (FP) PO ONE ×2 (16:10→16:38)
[2023-02-28] MEDS ORDERED: ACETAMINOPHEN 325 MG TABLET (FP) PO ONE (16:27)
[2023-02-28] MEDS ORDERED: ACETAMINOPHEN 325 MG TABLET (FP) ONE (16:37)
[2023-02-28 18:27] VITALS: BP 125/75; PULSE 92; RESP 20; TEMP 98
== END 2023-02-28 18:27 | disposition left against medical advice (07) ==
LOC: JER 14:16
DX: F10.920 Alcohol use, unspecified with intoxication, uncomplicated (principal)
CPT/HCPCS: 99283-25

== ENCOUNTER 2023-03-02 12:10 | Emergency (ER) | payer OTHER | END 2023-03-02 12:30 | disposition left against medical advice (07) | LOC: JER 12:10 | DX: R52 Pain, unspecified (principal) | CPT/HCPCS: 99281-25 ==

== ENCOUNTER 2023-03-26 19:20 | Observation (INO) | payer OTHER ==
[2023-03-26] MEDS ORDERED: ACETAMINOPHEN 500 MG TABLET (FP) PO ONE (20:18)
[2023-03-26] MEDS ORDERED: chlordiazePOXIDE HCL 25 MG CAPSULE PO ONE (20:18)
[2023-03-26] MEDS ORDERED: ACETAMINOPHEN 325 MG TABLET (FP) ONE (21:03)
[2023-03-26] MEDS ORDERED: chlordiazePOXIDE HCL 25 MG CAPSULE ONE (21:03)
[2023-03-27] MEDS ORDERED: ACETAMINOPHEN 325 MG TABLET (FP) PO ONE (05:54)
[2023-03-27] MEDS ORDERED: ASPIRIN 81 MG CHEWABLE TABLETS PO ONE ×2 (05:54→10:28)
[2023-03-27] MEDS ORDERED: chlordiazePOXIDE HCL 25 MG CAPSULE PO ONE ×2 (06:04→12:00)
[2023-03-27] MEDS ORDERED: ACETAMINOPHEN 325 MG TABLET (FP) ONE (06:12)
[2023-03-27] MEDS ORDERED: ASPIRIN 81 MG CHEWABLE TABLETS ONE (06:12)
[2023-03-27] MEDS ORDERED: chlordiazePOXIDE HCL 25 MG CAPSULE ONE ×2 (06:12→13:28)
[2023-03-27 07:36] LABS: BASO % 1.9 % (0-2.0); HEMATOCRIT 28.4 % (35.4-49); HEMOGLOBIN 8.7 GM/dL (11.7-16.9); LYMPH % 27.2 % (8-40); MCH 21.6 pg (25.7-33.7); MCHC 30.6 g/dl (32.0-35.9); MEAN CELL VOLUME 70.5 fl (80-96); MEAN PLT VOLUME 7.4 fl (7.5-11.1); MONO % 8.7 % (3.8-10.2); NEUT % 59.2 % (42.8-82.8); PLATELET COUNT 403 10^3/uL (134-434); RBC 4.03 M/mm3 (4.00-5.60); WHITE BLOOD COUNT 5.2 K/mm3 (4.0-10.0)
[2023-03-27 07:40] LABS: INR 1.1 (0.83-1.09); PROTHROMBIN TIME (PATIENT) 12.8 SEC (9.7-13.0)
[2023-03-27 07:43] LABS: ACTIVATED PTT 26.3 SECONDS (25.2-36.5)
[2023-03-27 07:52] LABS: POTASSIUM 3.8 mmol/L (3.5-5.1)
[2023-03-27 07:56] LABS: ALBUMIN 3.2 g/dl (3.4-5.0); BLOOD UREA NITROGEN 7.7 mg/dL (7-18); CALCIUM 9.3 mg/dL (8.5-10.1); MAGNESIUM 1.2 mg/dL (1.8-2.4)
[2023-03-27 07:59] LABS: CREATININE 0.6 mg/dL (0.55-1.3)
[2023-03-27 08:01] LABS: BILIRUBIN,TOTAL 0.5 mg/dL (0.2-1); TOT PROT 6.9 g/dl (6.4-8.2)
[2023-03-27] MEDS ORDERED: MAGNESIUM SULF 50% (8.12 MEQ/2 ML-1 GM VIAL) IVPB ONE (08:13)
[2023-03-27] MEDS ORDERED: MAGNESIUM SULFATE IN WATER 2 GM/50 ML IVPB IVPB ONE ×2 (08:23→17:59)
[2023-03-27 09:46] LABS: ANISOCYTOSIS 2+; MACROCYTOSIS 0; OVALOCYTE 2+; TARGET CELLS 2+; TEAR DROP CELLS 1+
[2023-03-27] MEDS: THIAMINE HCL 200 MG/2 ML VIAL IVPB SCH ×2 (16:59→17:04)
[2023-03-27] MEDS: FOLIC ACID 1 MG TABLET (FP) PO SCH (16:59)
[2023-03-27] MEDS ORDERED: MAGNESIUM 2GM/50ML STERILE WATER IVPB IVPB ONE (17:20)
[2023-03-27] MEDS ORDERED: ALBUTEROL SO4 0.042% IH SOL 1.25 MG/3 ML VIAL.NEB NEB PRN (19:13)
[2023-03-27] MEDS: METOPROLOL TARTRATE 25 MG TABLET (FP) PO SCH ×2 (22:14→22:18)
[2023-03-27] MEDS: FUROSEMIDE 40 MG/4 ML INJECTABLE VIAL IVPUSH ONE ×2 (22:14→22:19)
[2023-03-27] MEDS: chlordiazePOXIDE HCL 25 MG CAPSULE PO PRN (22:21)
[2023-03-27 22:48] VITALS: BMI 37.8
[2023-03-28] MEDS: chlordiazePOXIDE HCL 25 MG CAPSULE PO PRN (05:02)
[2023-03-28] MEDS: METOPROLOL TARTRATE 25 MG TABLET (FP) PO SCH (05:02)
[2023-03-28] MEDS: ENOXAPARIN NA (PORCINE) 40 MG/0.4 ML DISP.SYRIN SQ SCH (09:44)
[2023-03-28] MEDS: THIAMINE HCL 200 MG/2 ML VIAL IVPB SCH (09:44)
[2023-03-28] MEDS: ASPIRIN COATED 81 MG TABLET.EC PO SCH (09:44)
[2023-03-28] MEDS: FOLIC ACID 1 MG TABLET (FP) PO SCH (09:44)
[2023-03-28] MEDS: FUROSEMIDE 40 MG TABLET (FP) PO SCH (09:53)
[2023-03-29 00:21] VITALS: RESP 20
[2023-03-29] MEDS: ENOXAPARIN NA (PORCINE) 40 MG/0.4 ML DISP.SYRIN SQ SCH (10:43)
[2023-03-29] MEDS: ASPIRIN COATED 81 MG TABLET.EC PO SCH (10:44)
[2023-03-29] MEDS: THIAMINE HCL 100 MG TABLET (FP) PO SCH (10:44)
[2023-03-29] MEDS: FOLIC ACID 1 MG TABLET (FP) PO SCH (10:44)
[2023-03-29] MEDS: FUROSEMIDE 40 MG TABLET (FP) PO SCH (10:44)
[2023-03-29 23:29] VITALS: BP 141/73; PULSE 97; TEMP 99.1
[2023-03-30] MEDS: ENOXAPARIN NA (PORCINE) 40 MG/0.4 ML DISP.SYRIN SQ SCH (10:10)
[2023-03-30] MEDS: FUROSEMIDE 40 MG TABLET (FP) PO SCH (10:11)
[2023-03-30] MEDS: ASPIRIN COATED 81 MG TABLET.EC PO SCH (10:11)
[2023-03-30] MEDS: FOLIC ACID 1 MG TABLET (FP) PO SCH (10:11)
[2023-03-30] MEDS: THIAMINE HCL 100 MG TABLET (FP) PO SCH (10:11)
== END 2023-03-30 10:36 | disposition home or self-care (01) ==
LOC: JER 19:20 → JERBED 03-27 11:16 → J4W 03-27 20:09
PROVIDERS: ADMIT Internal Medicine; ATTEND Internal Medicine
PROC: 3E033GC Introduction of Other Therapeutic Substance into Peripheral Vein, Percutaneous Approach (ICD-10-PCS; principal; 2023-03-27)
DX: F10.10 Alcohol abuse, uncomplicated (principal); G89.29 Other chronic pain; K74.60 Unspecified cirrhosis of liver; M54.9 Dorsalgia, unspecified; C45.9 Mesothelioma, unspecified; J44.9 Chronic obstructive pulmonary disease, unspecified; K21.9 Gastro-esophageal reflux disease without esophagitis; E78.5 Hyperlipidemia, unspecified; I10 Essential (primary) hypertension; Z59.00 Homelessness unspecified; Z86.718 Personal history of other venous thrombosis and embolism; Z91.013 Allergy to seafood
CPT/HCPCS: 36415; 71045-TC-FY; 71275-TC; 80053; 83735; 84484; 85025; 85610; 85730; 93005; 93010; 96374; 99285-25; G0378; Q9967

== ENCOUNTER 2023-03-30 17:56 | Emergency (ER) | payer OTHER ==
[2023-03-30 19:34] VITALS: BMI 33.0
[2023-03-31 02:29] VITALS: BP 118/61; PULSE 81; RESP 14; TEMP 98.2
== END 2023-03-31 05:55 | disposition home or self-care (01) ==
LOC: JER 17:56
DX: M54.9 Dorsalgia, unspecified (principal); G89.29 Other chronic pain
CPT/HCPCS: 99282-25

== ENCOUNTER 2023-04-01 13:40 | Emergency (ER) | payer OTHER ==
[2023-04-01 13:48] VITALS: BP 142/67; PULSE 85; RESP 22; TEMP 98.2; BMI 35.9
[2023-04-01] MEDS ORDERED: METHOCARBAMOL 500 MG TABLET PO ONE (14:40)
[2023-04-01] MEDS ORDERED: chlordiazePOXIDE HCL 25 MG CAPSULE PO ONE (14:40)
[2023-04-01] MEDS ORDERED: METHOCARBAMOL 500 MG TABLET ONE (14:58)
[2023-04-01] MEDS ORDERED: chlordiazePOXIDE HCL 25 MG CAPSULE ONE (14:59)
== END 2023-04-01 19:07 | disposition home or self-care (01) ==
LOC: JERFT 13:40
DX: M54.9 Dorsalgia, unspecified (principal); G89.29 Other chronic pain; M62.830 Muscle spasm of back
CPT/HCPCS: 99283-25

== ENCOUNTER 2023-04-02 17:42 | Emergency (ER) | payer OTHER ==
[2023-04-02 17:50] VITALS: BP 111/67; PULSE 81; RESP 14; TEMP 97.5; BMI 32.3
[2023-04-02] MEDS ORDERED: METHOCARBAMOL 500 MG TABLET PO ONE (19:37)
[2023-04-02] MEDS ORDERED: METHOCARBAMOL 500 MG TABLET ONE (20:36)
== END 2023-04-03 06:40 | disposition home or self-care (01) ==
LOC: JER 17:42
DX: M54.50 Low back pain, unspecified (principal); G89.29 Other chronic pain
CPT/HCPCS: 99283-25

== ENCOUNTER 2023-04-04 13:27 | Observation (INO) | payer OTHER ==
[2023-04-04 13:33] VITALS: BMI 39.1
[2023-04-04] MEDS ORDERED: MIDAZOLAM HCL 2 MG/2 ML SINGLE DOSE VIAL IM ONE (17:40)
[2023-04-04] MEDS ORDERED: HALOPERIDOL LACTATE 5 MG/ML IM ONE (17:40)
[2023-04-04] MEDS ORDERED: MIDAZOLAM HCL 2 MG/2 ML SINGLE DOSE VIAL ONE (17:43)
[2023-04-04] MEDS ORDERED: MIDAZOLAM HCL 2 MG/2 ML SINGLE DOSE VIAL IVPUSH ONE (17:43)
[2023-04-04] MEDS ORDERED: HALOPERIDOL LACTATE 5 MG/ML ONE (17:43)
[2023-04-04] MEDS ORDERED: MIDAZOLAM HCL 5 MG/1 ML Single Dose Vial IM ONE (18:02)
[2023-04-05 02:18] LABS: URINE APPEARANCE CLEAR; URINE BILIRUBIN NEGATIVE (NEGATIVE); URINE COLOR YELLOW; URINE GLUCOSE (UA) NEGATIVE (NEGATIVE); URINE KETONE NEGATIVE (NEGATIVE); URINE LEUK ESTERASE NEGATIVE (NEGATIVE); URINE NITRITE NEGATIVE (NEGATIVE); URINE PROTEIN NEGATIVE (NEGATIVE)
[2023-04-05] MEDS ORDERED: LORazepam 1 MG TABLET PO PRN (05:26)
[2023-04-05] MEDS ORDERED: LORazepam 1 MG TABLET ONE (05:40)
[2023-04-05] MEDS: LORazepam 1 MG TABLET PO SCH ×4 (05:44→22:19)
[2023-04-05] MEDS ORDERED: FOLIC ACID INJECTION - 1 MG, THIAMINE HCL 100 MG, MULTIVIT INJECTION ADULT 10 ML in SOD... IVPB ONE (07:30)
[2023-04-05] MEDS: ENOXAPARIN NA (PORCINE) 40 MG/0.4 ML DISP.SYRIN SQ SCH (09:54)
[2023-04-05] MEDS: THIAMINE HCL 100 MG TABLET (FP) PO SCH (09:54)
[2023-04-05] MEDS: FOLIC ACID 1 MG TABLET (FP) PO SCH (09:54)
[2023-04-05] MEDS ORDERED: ACETAMINOPHEN 325 MG TABLET (FP) PO PRN (16:43)
[2023-04-06] MEDS ORDERED: LORazepam 1 MG TABLET PO SCH (05:00)
[2023-04-06 07:11] VITALS: TEMP 98.5
[2023-04-06] MEDS: FOLIC ACID 1 MG TABLET (FP) PO SCH (09:40)
[2023-04-06] MEDS: ENOXAPARIN NA (PORCINE) 40 MG/0.4 ML DISP.SYRIN SQ SCH (09:40)
[2023-04-06] MEDS: THIAMINE HCL 100 MG TABLET (FP) PO SCH (09:40)
[2023-04-06 10:31] VITALS: BP 115/55; PULSE 96; RESP 19
[2023-04-07] MEDS ORDERED: LORazepam 0.5 MG TABLET PO PRN
[2023-04-07] MEDS ORDERED: LORazepam 0.5 MG TABLET PO SCH (05:00)
[2023-04-08] MEDS ORDERED: LORazepam 0.5 MG TABLET PO ONE (05:00)
== END 2023-04-06 12:27 | disposition left against medical advice (07) ==
LOC: JER 13:27 → JERBED 04-05 02:25 → J5S 04-05 06:55
PROVIDERS: ADMIT Internal Medicine
PROC: 3E023GC Introduction of Other Therapeutic Substance into Muscle, Percutaneous Approach (ICD-10-PCS; principal; 2023-04-05)
PROC: 3E0233Z Introduction of Anti-inflammatory into Muscle, Percutaneous Approach (ICD-10-PCS; 2023-04-05)
DX: F10.10 Alcohol abuse, uncomplicated (principal); C45.9 Mesothelioma, unspecified; J44.9 Chronic obstructive pulmonary disease, unspecified; I10 Essential (primary) hypertension; E78.5 Hyperlipidemia, unspecified; I48.91 Unspecified atrial fibrillation; G89.29 Other chronic pain; I71.40 Abdominal aortic aneurysm, without rupture, unspecified; K74.60 Unspecified cirrhosis of liver; K21.9 Gastro-esophageal reflux disease without esophagitis; W05.0XXA Fall from non-moving wheelchair, initial encounter; Y93.89 Activity, other specified; Y92.238 Other place in hospital as the place of occurrence of the external cause; Z91.013 Allergy to seafood
CPT/HCPCS: 70450-TC; 71046-TC-FY; 72125-TC; 72131-TC; 72170-TC-FY; 81003; 87086; 96372; 99285-25; G0378

== ENCOUNTER 2023-04-10 13:19 | Emergency (ER) | payer OTHER ==
[2023-04-10 13:50] VITALS: BP 112/65; PULSE 94; RESP 17; TEMP 97.4; BMI 35.9
[2023-04-10] MEDS ORDERED: METHOCARBAMOL 500 MG TABLET PO ONE (14:42)
[2023-04-10] MEDS ORDERED: METHOCARBAMOL 500 MG TABLET ONE (15:03)
== END 2023-04-11 06:22 | disposition home or self-care (01) ==
LOC: JER 13:19
DX: M54.9 Dorsalgia, unspecified (principal); G89.29 Other chronic pain
CPT/HCPCS: 99283-25

== ENCOUNTER 2023-04-20 18:24 | Emergency (ER) | payer OTHER ==
[2023-04-20 19:00] VITALS: BP 146/88; PULSE 88; RESP 19; TEMP 97.8; BMI 35.9
[2023-04-20] MEDS ORDERED: METHOCARBAMOL 500 MG TABLET PO ONE (22:55)
[2023-04-20] MEDS ORDERED: METHOCARBAMOL 500 MG TABLET ONE (23:12)
== END 2023-04-21 00:30 | disposition home or self-care (01) ==
LOC: JER 18:24
DX: M54.9 Dorsalgia, unspecified (principal); G89.29 Other chronic pain
CPT/HCPCS: 99283-25

== ENCOUNTER 2023-04-23 11:28 | Observation (INO) | payer OTHER ==
[2023-04-23 11:39] VITALS: BMI 35.9
[2023-04-23] MEDS ORDERED: LIDOCAINE 4% PATCH TP ONE ×2 (12:11→12:27)
[2023-04-23 13:43] LABS: INR 1.05 (0.83-1.09); PROTHROMBIN TIME (PATIENT) 12.2 SEC (9.7-13.0)
[2023-04-23 13:46] LABS: ACTIVATED PTT 28.4 SECONDS (25.2-36.5)
[2023-04-23 13:51] LABS: HEMOGLOBIN 9.1 GM/dL (11.7-16.9); MCH 20.9 pg (25.7-33.7); MCHC 29.4 g/dl (32.0-35.9); MEAN CELL VOLUME 70.8 fl (80-96); RBC 4.37 M/mm3 (4.00-5.60); WHITE BLOOD COUNT 7.7 K/mm3 (4.0-10.0)
[2023-04-23 13:52] LABS: EOS % 2.3 % (0-4.5); LYMPH % 27.1 % (8-40); MEAN PLT VOLUME 7.1 fl (7.5-11.1); MONO % 7.8 % (3.8-10.2); NEUT % 61.8 % (42.8-82.8); PLATELET COUNT 342 10^3/uL (134-434); RDW 22.9 % (11.9-15.9)
[2023-04-23 14:03] LABS: POTASSIUM 3.3 mmol/L (3.5-5.1)
[2023-04-23 14:05] LABS: ALBUMIN 3.3 g/dl (3.4-5.0); BLOOD UREA NITROGEN 7.9 mg/dL (7-18); CALCIUM 8.2 mg/dL (8.5-10.1)
[2023-04-23 14:08] LABS: CREATININE 0.6 mg/dL (0.55-1.3)
[2023-04-23 14:10] LABS: BILIRUBIN,TOTAL 0.3 mg/dL (0.2-1)
[2023-04-23 14:23] LABS: ANISOCYTOSIS 1+; MACROCYTOSIS 0
[2023-04-23] MEDS ORDERED: SODIUM CHLORIDE 1,000 ML IV STA (18:17)
[2023-04-23] MEDS ORDERED: POTASSIUM CHLORIDE ORAL LIQUID 20 MEQ/15 ML PO ONE (19:00)
[2023-04-23] MEDS ORDERED: ASPIRIN 81 MG CHEWABLE TABLETS PO ONE (19:08)
[2023-04-23] MEDS ORDERED: FOLIC ACID INJECTION - 1 MG, THIAMINE HCL 100 MG, MULTIVIT INJECTION ADULT 10 ML in SOD... IVPB ONE (19:15)
[2023-04-23] MEDS ORDERED: ALBUTEROL SO4 HFA INHALER IH PRN (19:15)
[2023-04-23] MEDS ORDERED: ASPIRIN 81 MG CHEWABLE TABLETS ONE (19:36)
[2023-04-23] MEDS: THIAMINE HCL 100 MG TABLET (FP) PO SCH (20:53)
[2023-04-23] MEDS ORDERED: LIDOCAINE PATCH REMOVAL MC ONE (22:00)
[2023-04-24] MEDS ORDERED: chlordiazePOXIDE HCL 25 MG CAPSULE PO SCH (05:00)
[2023-04-24] MEDS ORDERED: chlordiazePOXIDE HCL 25 MG CAPSULE PO PRN (05:16)
[2023-04-24] MEDS ORDERED: IBUPROFEN 200 MG TABLET PO ONE (05:18)
[2023-04-24] MEDS ORDERED: IBUPROFEN 400 MG TABLET (FP) PO ONE (05:20)
[2023-04-24 08:14] LABS: EOS % 3.2 % (0-4.5); HEMATOCRIT 29.8 % (35.4-49); HEMOGLOBIN 8.9 GM/dL (11.7-16.9); LYMPH % 22.8 % (8-40); MCH 21.3 pg (25.7-33.7); MCHC 29.8 g/dl (32.0-35.9); MEAN CELL VOLUME 71.4 fl (80-96); MEAN PLT VOLUME 7.4 fl (7.5-11.1); MONO % 10.7 % (3.8-10.2); NEUT % 62.3 % (42.8-82.8); PLATELET COUNT 309 10^3/uL (134-434); RBC 4.18 M/mm3 (4.00-5.60); RDW 22.2 % (11.9-15.9); WHITE BLOOD COUNT 7.1 K/mm3 (4.0-10.0)
[2023-04-24 08:43] LABS: POTASSIUM 3.4 mmol/L (3.5-5.1)
[2023-04-24 09:18] LABS: CALCIUM 8.8 mg/dL (8.5-10.1)
[2023-04-24 09:19] LABS: ALBUMIN 3.2 g/dl (3.4-5.0); MAGNESIUM 1.4 mg/dL (1.8-2.4); PHOSPHOROUS 2.1 mg/dL (2.5-4.9)
[2023-04-24 09:20] LABS: TOT PROT 6.5 g/dl (6.4-8.2)
[2023-04-24 09:22] LABS: CREATININE 0.6 mg/dL (0.55-1.3)
[2023-04-24] MEDS ORDERED: FOLIC ACID 1 MG TABLET (FP) PO SCH (10:00)
[2023-04-24] MEDS ORDERED: ENOXAPARIN NA (PORCINE) 40 MG/0.4 ML DISP.SYRIN SQ SCH (10:00)
[2023-04-24] MEDS: THIAMINE HCL 100 MG TABLET (FP) PO SCH (10:22)
[2023-04-24] MEDS ORDERED: SODIUM PHOSPHATE - 30 MM in DEXTROSE 5%-WATER - 500 ML IVPB ONE (14:00)
[2023-04-24] MEDS ORDERED: POTASSIUM CHLORIDE ORAL LIQUID 20 MEQ/15 ML PO ONE (14:00)
[2023-04-24] MEDS ORDERED: MAGNESIUM SULF 50% (8.12 MEQ/2 ML-1 GM VIAL) IVPB ONE (14:00)
[2023-04-24 14:56] VITALS: TEMP 98
[2023-04-24 23:05] VITALS: BP 145/65; PULSE 83; RESP 16
[2023-04-25] MEDS ORDERED: chlordiazePOXIDE HCL 25 MG CAPSULE PO SCH (05:00)
[2023-04-26] MEDS ORDERED: chlordiazePOXIDE HCL 10 MG CAPSULE PO PRN
[2023-04-26] MEDS ORDERED: chlordiazePOXIDE HCL 10 MG CAPSULE PO SCH (05:00)
[2023-04-27] MEDS ORDERED: chlordiazePOXIDE HCL 10 MG CAPSULE PO SCH (05:00)
[2023-04-28] MEDS ORDERED: chlordiazePOXIDE HCL 10 MG CAPSULE PO ONE (05:00)
== END 2023-04-25 05:39 | disposition home or self-care (01) ==
LOC: JER 11:28 → JERBED 17:59
PROVIDERS: ADMIT Internal Medicine; ATTEND Internal Medicine
PROC: 3E033GC Introduction of Other Therapeutic Substance into Peripheral Vein, Percutaneous Approach (ICD-10-PCS; principal; 2023-04-23)
DX: R07.9 Chest pain, unspecified (principal); F10.99 Alcohol use, unspecified with unspecified alcohol-induced disorder; I10 Essential (primary) hypertension; C45.7 Mesothelioma of other sites; G89.29 Other chronic pain; M54.9 Dorsalgia, unspecified; J44.9 Chronic obstructive pulmonary disease, unspecified; K21.9 Gastro-esophageal reflux disease without esophagitis; I71.40 Abdominal aortic aneurysm, without rupture, unspecified; E78.5 Hyperlipidemia, unspecified; K74.60 Unspecified cirrhosis of liver; R11.10 Vomiting, unspecified; R19.7 Diarrhea, unspecified; I48.91 Unspecified atrial fibrillation
CPT/HCPCS: 36415; 80053; 83735; 84100; 84443; 84484; 85025; 85610; 85730; 96365; 99285-25; G0378

== ENCOUNTER 2023-04-26 18:49 | Emergency (ER) | payer OTHER ==
[2023-04-26 18:59] VITALS: BMI 34.4
[2023-04-27 06:01] VITALS: BP 134/80; PULSE 85; RESP 19; TEMP 99.3
== END 2023-04-27 06:16 | disposition home or self-care (01) ==
LOC: JER 18:49
DX: F10.129 Alcohol abuse with intoxication, unspecified (principal); Y90.9 Presence of alcohol in blood, level not specified
CPT/HCPCS: 99282-25

== ENCOUNTER 2023-04-27 17:00 | Emergency (ER) | payer OTHER ==
[2023-04-27 18:21] VITALS: BMI 36.7
[2023-04-27 19:15] LABS: POTASSIUM 3.4 mmol/L (3.5-5.1)
[2023-04-27 19:19] LABS: ALBUMIN 3.4 g/dl (3.4-5.0); BLOOD UREA NITROGEN 12.4 mg/dL (7-18); CALCIUM 8.3 mg/dL (8.5-10.1)
[2023-04-27 19:22] LABS: CREATININE 0.7 mg/dL (0.55-1.3)
[2023-04-27 19:24] LABS: BILIRUBIN,TOTAL 0.3 mg/dL (0.2-1)
[2023-04-27 19:30] LABS: BASO % 1.3 % (0-2.0); EOS % 3.4 % (0-4.5); HEMATOCRIT 31.4 % (35.4-49); HEMOGLOBIN 9.4 GM/dL (11.7-16.9); LYMPH % 30.6 % (8-40); MCHC 29.8 g/dl (32.0-35.9); MEAN CELL VOLUME 70.4 fl (80-96); MEAN PLT VOLUME 7.2 fl (7.5-11.1); MONO % 7.4 % (3.8-10.2); NEUT % 57.3 % (42.8-82.8); PLATELET COUNT 393 10^3/uL (134-434); RBC 4.46 M/mm3 (4.00-5.60); RDW 22.3 % (11.9-15.9)
[2023-04-27 19:44] LABS: ADD RBC MORPHOLOGY YES
[2023-04-27 20:52] LABS: ANISOCYTOSIS 2+; MACROCYTOSIS 0; OVALOCYTE 1+; PLATELET ESTIMATE NORMAL; TARGET CELLS 1+
[2023-04-28 02:31] VITALS: BP 135/80; PULSE 108; RESP 19; TEMP 98.7
== END 2023-04-28 06:09 | disposition home or self-care (01) ==
LOC: JER 17:00
DX: F10.90 Alcohol use, unspecified, uncomplicated (principal); E86.0 Dehydration; Y90.8 Blood alcohol level of 240 mg/100 ml or more
CPT/HCPCS: 36415; 80053; 80307; 85025; 99283-25

== ENCOUNTER 2023-04-28 16:39 | Emergency (ER) | payer OTHER ==
[2023-04-28 16:51] VITALS: BMI 31.5
[2023-04-28] MEDS ORDERED: chlordiazePOXIDE HCL 25 MG CAPSULE PO ONE (18:05)
[2023-04-28] MEDS ORDERED: chlordiazePOXIDE HCL 25 MG CAPSULE ONE (18:10)
[2023-04-28] MEDS: ALBUTEROL SO4 2.5/IPRATROPIUM 0.5 INH SOL 3 ML VIAL.NEB. NEB SCH ×4 (18:18→18:46)
[2023-04-29] MEDS ORDERED: ALBUTEROL SO4 2.5/IPRATROPIUM 0.5 INH SOL 3 ML VIAL.NEB. NEB ONE (03:41)
[2023-04-29 06:20] VITALS: BP 100/71; PULSE 65; RESP 18; TEMP 97.8
== END 2023-04-29 06:32 | disposition home or self-care (01) ==
LOC: JER 16:39
PROC: 3E0F7GC Introduction of Other Therapeutic Substance into Respiratory Tract, Via Natural or Artificial Opening (ICD-10-PCS; principal; 2023-04-28)
PROC: 3E0F7GC Introduction of Other Therapeutic Substance into Respiratory Tract, Via Natural or Artificial Opening (ICD-10-PCS; 2023-04-29)
DX: M54.9 Dorsalgia, unspecified (principal); G89.29 Other chronic pain; R06.02 Shortness of breath; R05.9 Cough, unspecified; F10.20 Alcohol dependence, uncomplicated
CPT/HCPCS: 93005; 93010; 99284-25

== ENCOUNTER 2023-04-30 20:51 | Emergency (ER) | payer OTHER ==
[2023-04-30 20:57] VITALS: BP 116/62; PULSE 83; RESP 18; TEMP 97.8; BMI 33.0
[2023-04-30] MEDS ORDERED: METHOCARBAMOL 500 MG TABLET PO ONE (21:36)
[2023-04-30] MEDS ORDERED: chlordiazePOXIDE HCL 25 MG CAPSULE PO ONE ×3 (21:36→22:03)
[2023-04-30] MEDS ORDERED: METHOCARBAMOL 500 MG TABLET ONE (21:46)
[2023-04-30] MEDS ORDERED: chlordiazePOXIDE HCL 25 MG CAPSULE ONE ×2 (21:46→22:13)
== END 2023-05-01 06:37 | disposition home or self-care (01) ==
LOC: JER 20:51
DX: M54.50 Low back pain, unspecified (principal); G89.29 Other chronic pain; F10.90 Alcohol use, unspecified, uncomplicated
CPT/HCPCS: 99283-25

== ENCOUNTER 2023-05-01 13:34 | Observation (INO) | payer OTHER ==
[2023-05-01 13:54] VITALS: BMI 35.9
[2023-05-01] MEDS ORDERED: ALBUTEROL SO4 0.083% IH SOL 2.5 MG/3 ML VIAL.NEB. NEB ONE ×2 (15:00→15:49)
[2023-05-01] MEDS ORDERED: FUROSEMIDE 40 MG/4 ML INJECTABLE VIAL IVPUSH ONE (19:13)
[2023-05-01] MEDS ORDERED: POTASSIUM CHLORIDE TABS 20 MEQ TABLET.ER (FP) PO ONE (19:13)
[2023-05-01] MEDS ORDERED: chlordiazePOXIDE HCL 25 MG CAPSULE PO ONE (19:13)
[2023-05-01] MEDS ORDERED: FUROSEMIDE 40 MG/4 ML INJECTABLE VIAL ONE (19:44)
[2023-05-01] MEDS ORDERED: chlordiazePOXIDE HCL 25 MG CAPSULE ONE (19:44)
[2023-05-01 20:36] LABS: HEMOGLOBIN 8.2 GM/dL (11.7-16.9); MCHC 30.4 g/dl (32.0-35.9); MEAN CELL VOLUME 68.9 fl (80-96); MEAN PLT VOLUME 7.7 fl (7.5-11.1); PLATELET COUNT 393 10^3/uL (134-434); RBC 3.92 M/mm3 (4.00-5.60); RDW 21.6 % (11.9-15.9); WHITE BLOOD COUNT 5.8 K/mm3 (4.0-10.0)
[2023-05-01 21:07] LABS: POTASSIUM 4.7 mmol/L (3.5-5.1)
[2023-05-01 21:09] LABS: ALBUMIN 3.3 g/dl (3.4-5.0); CALCIUM 8.5 mg/dL (8.5-10.1)
[2023-05-01 21:10] LABS: BLOOD UREA NITROGEN 10.9 mg/dL (7-18)
[2023-05-01 21:13] LABS: CREATININE 0.8 mg/dL (0.55-1.3)
[2023-05-01 21:14] LABS: BILIRUBIN,TOTAL 0.4 mg/dL (0.2-1); TOT PROT 7.2 g/dl (6.4-8.2)
[2023-05-01 22:06] LABS: MAGNESIUM 1.4 mg/dL (1.8-2.4)
[2023-05-01 22:14] LABS: N-TERMINAL BNP 45.6 pg/ml (5-125)
[2023-05-01] MEDS ORDERED: MAGNESIUM SULF 50% (8.12 MEQ/2 ML-1 GM VIAL) IVPB ONE (22:26)
[2023-05-01] MEDS ORDERED: MAGNESIUM SULFATE IN WATER 2 GM/50 ML IVPB IVPB ONE (22:49)
[2023-05-02 02:44] LABS: PH,URINE 6.5 (5.0-8.0); URINE APPEARANCE CLEAR; URINE BILIRUBIN NEGATIVE (NEGATIVE); URINE COLOR YELLOW; URINE GLUCOSE (UA) NEGATIVE (NEGATIVE); URINE KETONE NEGATIVE (NEGATIVE); URINE LEUK ESTERASE NEGATIVE (NEGATIVE); URINE NITRITE NEGATIVE (NEGATIVE); URINE PROTEIN NEGATIVE (NEGATIVE)
[2023-05-02] MEDS ORDERED: IRON SUCROSE INJECTION 100 MG in SODIUM CHLORIDE 95 ML IVPB ONE (03:00)
[2023-05-02] MEDS ORDERED: MAGNESIUM SULFATE IN WATER 2 GM/50 ML IVPB IVPB ONE (04:00)
[2023-05-02 06:56] LABS: POTASSIUM 3.6 mmol/L (3.5-5.1)
[2023-05-02 06:58] LABS: CALCIUM 8.1 mg/dL (8.5-10.1)
[2023-05-02 06:59] LABS: ALBUMIN 3.1 g/dl (3.4-5.0); BLOOD UREA NITROGEN 11.2 mg/dL (7-18); MAGNESIUM 1.6 mg/dL (1.8-2.4)
[2023-05-02 07:02] LABS: CREATININE 0.6 mg/dL (0.55-1.3); PHOSPHOROUS 3.4 mg/dL (2.5-4.9)
[2023-05-02 07:03] LABS: BILIRUBIN,TOTAL 0.9 mg/dL (0.2-1); TOT PROT 6.4 g/dl (6.4-8.2)
[2023-05-02 08:22] LABS: BASO % 1.2 % (0-2.0); EOS % 3.2 % (0-4.5); HEMATOCRIT 31.1 % (35.4-49); HEMOGLOBIN 9.4 GM/dL (11.7-16.9); LYMPH % 18.1 % (8-40); MCH 20.9 pg (25.7-33.7); MCHC 30.2 g/dl (32.0-35.9); MEAN CELL VOLUME 69.2 fl (80-96); MEAN PLT VOLUME 7.2 fl (7.5-11.1); MONO % 6.9 % (3.8-10.2); NEUT % 70.6 % (42.8-82.8); PLATELET COUNT 280 10^3/uL (134-434); RBC 4.49 M/mm3 (4.00-5.60); RDW 21.9 % (11.9-15.9); WHITE BLOOD COUNT 7.7 K/mm3 (4.0-10.0)
[2023-05-02 08:58] LABS: ANISOCYTOSIS 2+; MACROCYTOSIS 0; OVALOCYTE 2+
[2023-05-02] MEDS ORDERED: THIAMINE HCL 100 MG TABLET (FP) PO SCH (10:00)
[2023-05-02] MEDS ORDERED: APIXABAN 5 MG TABLET PO SCH (10:00)
[2023-05-02] MEDS ORDERED: FOLIC ACID 1 MG TABLET (FP) PO SCH (10:00)
[2023-05-02] MEDS ORDERED: FUROSEMIDE 40 MG/4 ML INJECTABLE VIAL IVPUSH SCH (10:00)
[2023-05-02 11:56] VITALS: BP 112/56; PULSE 83; RESP 18; TEMP 98
== END 2023-05-02 14:00 | disposition left against medical advice (07) ==
LOC: JER 13:34 → JERBED 23:20
PROVIDERS: ADMIT Internal Medicine; ATTEND Internal Medicine
PROC: 3E0F7GC Introduction of Other Therapeutic Substance into Respiratory Tract, Via Natural or Artificial Opening (ICD-10-PCS; principal; 2023-05-01)
PROC: 3E033GC Introduction of Other Therapeutic Substance into Peripheral Vein, Percutaneous Approach (ICD-10-PCS; 2023-05-01)
PROC: 3E033NZ Introduction of Analgesics, Hypnotics, Sedatives into Peripheral Vein, Percutaneous Approach (ICD-10-PCS; 2023-05-01)
DX: F10.10 Alcohol abuse, uncomplicated (principal); K21.9 Gastro-esophageal reflux disease without esophagitis; K74.60 Unspecified cirrhosis of liver; F41.9 Anxiety disorder, unspecified; G89.29 Other chronic pain; M54.50 Low back pain, unspecified; M19.90 Unspecified osteoarthritis, unspecified site; R26.2 Difficulty in walking, not elsewhere classified; Z86.711 Personal history of pulmonary embolism; E83.42 Hypomagnesemia; Z91.148 Patient's other noncompliance with medication regimen for other reason; I71.40 Abdominal aortic aneurysm, without rupture, unspecified; D50.9 Iron deficiency anemia, unspecified; C45.7 Mesothelioma of other sites; Z91.013 Allergy to seafood
CPT/HCPCS: 36415; 71045-TC-FY; 80053; 81003; 83735; 83880; 84100; 84484; 85025; 85027; 87086; 93005; 93010; 94640; 96374; 96375; 97116-GP; 97162-GP; 99285-25; G0378

== ENCOUNTER 2023-05-03 14:35 | Emergency (ER) | payer OTHER ==
[2023-05-03 14:40] VITALS: BMI 33.0
[2023-05-03] MEDS ORDERED: METHOCARBAMOL 500 MG TABLET PO ONE (15:27)
[2023-05-03] MEDS ORDERED: METHOCARBAMOL 500 MG TABLET ONE ×2 (15:51→15:53)
[2023-05-03] MEDS ORDERED: FUROSEMIDE 40 MG TABLET (FP) PO ONE (16:47)
[2023-05-03] MEDS ORDERED: FUROSEMIDE 40 MG TABLET (FP) ONE (17:01)
[2023-05-03 18:38] VITALS: TEMP 97.8
[2023-05-03] MEDS ORDERED: ALBUTEROL SO4 2.5/IPRATROPIUM 0.5 INH SOL 3 ML VIAL.NEB. NEB ONE (21:43)
[2023-05-03] MEDS: ALBUTEROL SO4 2.5/IPRATROPIUM 0.5 INH SOL 3 ML VIAL.NEB. NEB SCH ×2 (21:48→22:17)
[2023-05-04 05:06] VITALS: BP 121/89; PULSE 88; RESP 12
== END 2023-05-04 06:40 | disposition home or self-care (01) ==
LOC: JER 14:35
PROC: 3E0F7GC Introduction of Other Therapeutic Substance into Respiratory Tract, Via Natural or Artificial Opening (ICD-10-PCS; principal; 2023-05-03)
DX: M54.50 Low back pain, unspecified (principal); G89.29 Other chronic pain; M25.562 Pain in left knee; M25.561 Pain in right knee; J44.9 Chronic obstructive pulmonary disease, unspecified; R60.0 Localized edema
CPT/HCPCS: 36415; 84484; 93005; 93010; 99284-25

== ENCOUNTER 2023-05-05 14:15 | Emergency (ER) | payer OTHER ==
[2023-05-05 14:43] VITALS: BMI 40.3
[2023-05-06 05:53] VITALS: BP 110/81; PULSE 65; RESP 17; TEMP 97.6
== END 2023-05-06 05:53 | disposition home or self-care (01) ==
LOC: JER 14:15
DX: F10.929 Alcohol use, unspecified with intoxication, unspecified (principal); M54.9 Dorsalgia, unspecified
CPT/HCPCS: 93005; 93010; 99282-25

== ENCOUNTER 2023-05-08 11:41 | Emergency (ER) | payer OTHER ==
[2023-05-08 11:47] VITALS: BP 119/68; RESP 18
[2023-05-08 11:48] VITALS: PULSE 93; TEMP 98; BMI 30.1
[2023-05-08] MEDS ORDERED: METHOCARBAMOL 500 MG TABLET PO ONE (12:27)
[2023-05-08] MEDS ORDERED: METHOCARBAMOL 500 MG TABLET ONE (12:38)
== END 2023-05-08 14:26 | disposition home or self-care (01) ==
LOC: JER 11:41
DX: M54.9 Dorsalgia, unspecified (principal); G89.29 Other chronic pain
CPT/HCPCS: 99283-25

== ENCOUNTER 2023-05-08 15:41 | Emergency (ER) | payer OTHER ==
[2023-05-08 15:45] VITALS: BP 117/63; PULSE 94; RESP 16; TEMP 98; BMI 31.5
[2023-05-08] MEDS ORDERED: ACETAMINOPHEN 500 MG TABLET (FP) PO ONE (22:25)
[2023-05-08] MEDS ORDERED: METHOCARBAMOL 750 MG TAB PO ONE (22:26)
[2023-05-08] MEDS ORDERED: ACETAMINOPHEN 325 MG TABLET (FP) ONE (22:42)
[2023-05-08] MEDS ORDERED: METHOCARBAMOL 500 MG TABLET ONE (22:43)
== END 2023-05-09 06:33 | disposition home or self-care (01) ==
LOC: JER 15:41
DX: G89.29 Other chronic pain (principal); M54.50 Low back pain, unspecified; M25.569 Pain in unspecified knee; R60.0 Localized edema; M79.10 Myalgia, unspecified site
CPT/HCPCS: 99283-25

== ENCOUNTER 2023-05-11 03:04 | Inpatient (IN) | payer OTHER ==
[2023-05-11 03:14] VITALS: BMI 37.3
[2023-05-11 04:44] LABS: HEMATOCRIT 26.9 % (35.4-49); HEMOGLOBIN 8.1 GM/dL (11.7-16.9); LYMPH % 25.6 % (8-40); MCH 20.5 pg (25.7-33.7); MCHC 30.1 g/dl (32.0-35.9); MEAN CELL VOLUME 67.9 fl (80-96); MEAN PLT VOLUME 7.1 fl (7.5-11.1); MONO % 9.6 % (3.8-10.2); NEUT % 60.8 % (42.8-82.8); PLATELET COUNT 246 10^3/uL (134-434); RBC 3.96 M/mm3 (4.00-5.60); RDW 21.3 % (11.9-15.9); WHITE BLOOD COUNT 6.1 K/mm3 (4.0-10.0)
[2023-05-11 05:02] LABS: POTASSIUM 3.8 mmol/L (3.5-5.1)
[2023-05-11 05:04] LABS: CALCIUM 8.3 mg/dL (8.5-10.1)
[2023-05-11 05:05] LABS: BLOOD UREA NITROGEN 10.2 mg/dL (7-18); MAGNESIUM 1.5 mg/dL (1.8-2.4)
[2023-05-11 05:07] LABS: CREATININE 0.8 mg/dL (0.55-1.3)
[2023-05-11 05:09] LABS: BILIRUBIN,TOTAL 0.6 mg/dL (0.2-1); TOT PROT 6.3 g/dl (6.4-8.2)
[2023-05-11] MEDS: MAGNESIUM CL 64 MG TABLET.SA PO SCH ×2 (06:53→13:49)
[2023-05-11] MEDS ORDERED: chlordiazePOXIDE HCL 25 MG CAPSULE PO ONE (06:53)
[2023-05-11] MEDS ORDERED: METHOCARBAMOL 500 MG TABLET PO ONE (06:54)
[2023-05-11 06:55] VITALS: BP 137/57; PULSE 89; RESP 20; TEMP 99.1
[2023-05-11] MEDS ORDERED: chlordiazePOXIDE HCL 25 MG CAPSULE ONE ×2 (06:56→15:37)
[2023-05-11] MEDS ORDERED: METHOCARBAMOL 500 MG TABLET ONE (06:56)
[2023-05-11] MEDS ORDERED: ACETAMINOPHEN 1000 MG/100 ML BAG IVPB PRN (14:24)
[2023-05-11] MEDS ORDERED: PANTOPRAZOLE 40 MG TABLET PO SCH (14:30)
[2023-05-11] MEDS ORDERED: DEXTROSE 5%-0.45% SALINE 1,000 ML IV SCH (14:30)
[2023-05-11] MEDS ORDERED: chlordiazePOXIDE HCL 25 MG CAPSULE PO SCH ×2 (14:30→15:00)
[2023-05-11] MEDS ORDERED: chlordiazePOXIDE HCL 25 MG CAPSULE PO PRN (14:38)
[2023-05-11] MEDS ORDERED: PANTOPRAZOLE 40 MG TABLET PO ONE (15:37)
[2023-05-12] MEDS ORDERED: PANTOPRAZOLE 20 MG TABLET PO SCH (06:25)
[2023-05-12] MEDS ORDERED: FOLIC ACID 1 MG TABLET (FP) PO SCH (10:00)
[2023-05-12] MEDS ORDERED: THIAMINE HCL 100 MG TABLET (FP) PO SCH (10:00)
[2023-05-12] MEDS ORDERED: ENOXAPARIN NA (PORCINE) 40 MG/0.4 ML DISP.SYRIN SQ SCH (10:00)
[2023-05-13] MEDS ORDERED: chlordiazePOXIDE HCL 25 MG CAPSULE PO SCH (05:00)
[2023-05-14] MEDS ORDERED: chlordiazePOXIDE HCL 10 MG CAPSULE PO PRN
[2023-05-14] MEDS ORDERED: chlordiazePOXIDE HCL 10 MG CAPSULE PO SCH (05:00)
[2023-05-15] MEDS ORDERED: chlordiazePOXIDE HCL 10 MG CAPSULE PO SCH (05:00)
[2023-05-16] MEDS ORDERED: chlordiazePOXIDE HCL 10 MG CAPSULE PO ONE (05:00)
== END 2023-05-11 18:55 | disposition left against medical advice (07) | DRG 894 ==
LOC: JER 03:04 → JERBED 07:04 → OBSVTOIN 14:18
PROVIDERS: ADMIT Internal Medicine; ATTEND Internal Medicine
DX: F10.239 Alcohol dependence with withdrawal, unspecified (principal); Z59.00 Homelessness unspecified; I11.0 Hypertensive heart disease with heart failure; D64.9 Anemia, unspecified; I50.9 Heart failure, unspecified; J44.9 Chronic obstructive pulmonary disease, unspecified; D50.9 Iron deficiency anemia, unspecified; K76.89 Other specified diseases of liver; R10.9 Unspecified abdominal pain; R60.9 Edema, unspecified; G89.29 Other chronic pain; R07.9 Chest pain, unspecified; M54.9 Dorsalgia, unspecified; K21.9 Gastro-esophageal reflux disease without esophagitis; E66.9 Obesity, unspecified; Z68.37 Body mass index [BMI] 37.0-37.9, adult
CPT/HCPCS: 0241U-QW; 36415; 71045-TC-FY; 71046-TC-FY; 80053; 83690; 83735; 83880; 84484; 85025; 85379; 85610; 85730; 93005; 93010; 99282-25; 99283-25; 99285-25; G0378

== ENCOUNTER 2023-05-12 14:19 | Emergency (ER) | payer OTHER ==
[2023-05-12 14:45] VITALS: BP 107/49; PULSE 94; RESP 18; TEMP 98.5; BMI 34.4
== END 2023-05-12 18:50 | disposition home or self-care (01) ==
LOC: JER 14:19
DX: S62.641A Nondisplaced fracture of proximal phalanx of left index finger, initial encounter for closed fracture (principal); W22.8XXA Striking against or struck by other objects, initial encounter; Y92.9 Unspecified place or not applicable
CPT/HCPCS: 73110-TC-LT-FY; 73110-TC-RT-FY; 73130-TC-LT-FY; 73130-TC-RT-FY; 99284-25

== ENCOUNTER 2023-05-15 14:12 | Emergency (ER) | payer OTHER ==
[2023-05-15 14:33] VITALS: BP 132/62; PULSE 92; RESP 18; TEMP 97.4; BMI 40.7
[2023-05-15] MEDS ORDERED: SODIUM CHLORIDE FOR INHALATION 3 ML VIAL.NEB IH ONE (14:51)
== END 2023-05-15 19:41 | disposition home or self-care (01) ==
LOC: JER 14:12
PROC: 3E0F7GC Introduction of Other Therapeutic Substance into Respiratory Tract, Via Natural or Artificial Opening (ICD-10-PCS; principal; 2023-05-15)
DX: R06.02 Shortness of breath (principal)
CPT/HCPCS: 99284-25

== ENCOUNTER 2023-05-16 20:29 | Emergency (ER) | payer OTHER ==
[2023-05-16 20:45] VITALS: BP 135/80; PULSE 89; RESP 18; TEMP 98.9; BMI 40.7
[2023-05-16] MEDS ORDERED: METHOCARBAMOL 500 MG TABLET PO ONE (22:11)
[2023-05-16] MEDS ORDERED: METHOCARBAMOL 500 MG TABLET ONE (22:30)
== END 2023-05-17 07:28 | disposition home or self-care (01) ==
LOC: JER 20:29
DX: M54.9 Dorsalgia, unspecified (principal); M25.561 Pain in right knee; M25.562 Pain in left knee; G89.29 Other chronic pain
CPT/HCPCS: 99283-25

== ENCOUNTER 2023-05-17 14:28 | Emergency (ER) | payer OTHER ==
[2023-05-17 14:48] VITALS: RESP 20; BMI 31.3
[2023-05-18 00:52] VITALS: BP 141/61; PULSE 94; TEMP 98.5
[2023-05-18] MEDS ORDERED: ALBUTEROL SO4 0.5 % INH SOLN 2.5 MG/0.5 ML VIAL.NEB. NEB ONE ×2 (03:26→03:36)
[2023-05-18] MEDS ORDERED: ALBUTEROL SO4 2.5/IPRATROPIUM 0.5 INH SOL 3 ML VIAL.NEB. NEB ONE (03:35)
[2023-05-18] MEDS: chlordiazePOXIDE HCL 25 MG CAPSULE PO ONE ×2 (07:40→08:47)
[2023-05-18] MEDS ORDERED: chlordiazePOXIDE HCL 25 MG CAPSULE ONE (08:20)
[2023-05-18 15:17] LABS: BASO % 0.8 % (0-2.0); EOS % 2.8 % (0-4.5); HEMATOCRIT 28.9 % (35.4-49); HEMOGLOBIN 8.6 GM/dL (11.7-16.9); LYMPH % 16.9 % (8-40); MCH 20.6 pg (25.7-33.7); MCHC 29.7 g/dl (32.0-35.9); MEAN CELL VOLUME 69.5 fl (80-96); MEAN PLT VOLUME 7.4 fl (7.5-11.1); MONO % 7.4 % (3.8-10.2); NEUT % 72.1 % (42.8-82.8); PLATELET COUNT 249 10^3/uL (134-434); RBC 4.15 M/mm3 (4.00-5.60); RDW 20.6 % (11.9-15.9)
[2023-05-18 15:33] LABS: POTASSIUM 3.2 mmol/L (3.5-5.1)
[2023-05-18 15:35] LABS: CALCIUM 8.4 mg/dL (8.5-10.1)
[2023-05-18 15:36] LABS: BLOOD UREA NITROGEN 5.2 mg/dL (7-18)
[2023-05-18 15:39] LABS: CREATININE 0.6 mg/dL (0.55-1.3)
[2023-05-18 15:41] LABS: BILIRUBIN,TOTAL 1.1 mg/dL (0.2-1); TOT PROT 6.2 g/dl (6.4-8.2)
[2023-05-18 15:44] LABS: N-TERMINAL BNP 816.3 pg/ml (5-125)
[2023-05-18] MEDS ORDERED: POTASSIUM CHLORIDE ORAL LIQUID 20 MEQ/15 ML PO ONE (16:18)
[2023-05-18] MEDS ORDERED: POTASSIUM CHLORIDE ORAL LIQUID 20 MEQ/15 ML ONE (16:30)
[2023-05-18] MEDS ORDERED: AZITHROMYCIN 250 MG TABLET PO ONE (16:33)
[2023-05-18 17:02] LABS: ANISOCYTOSIS 2+; MACROCYTOSIS 1+; OVALOCYTE 1+; PLATELET ESTIMATE NORMAL
== END 2023-05-18 17:00 | disposition left against medical advice (07) ==
LOC: JER 14:28
PROC: 3E0F7GC Introduction of Other Therapeutic Substance into Respiratory Tract, Via Natural or Artificial Opening (ICD-10-PCS; principal; 2023-05-18)
DX: M54.50 Low back pain, unspecified (principal); G89.29 Other chronic pain; F10.920 Alcohol use, unspecified with intoxication, uncomplicated; Z20.822 Contact with and (suspected) exposure to COVID-19
CPT/HCPCS: 0241U-QW; 36415; 71045-TC-FY; 80053; 83690; 83880; 84484; 85025; 93005; 93010; 99285-25

== ENCOUNTER 2023-05-19 14:52 | Emergency (ER) | payer OTHER ==
[2023-05-19 15:38] VITALS: BP 145/82; PULSE 78; RESP 22; TEMP 98.5; BMI 38.3
[2023-05-19 19:07] LABS: HEMATOCRIT 28.4 % (35.4-49); HEMOGLOBIN 8.4 GM/dL (11.7-16.9); MCH 20.7 pg (25.7-33.7); MCHC 29.4 g/dl (32.0-35.9); MEAN CELL VOLUME 70.4 fl (80-96); MEAN PLT VOLUME 7.2 fl (7.5-11.1); PLATELET COUNT 276 10^3/uL (134-434); RBC 4.04 M/mm3 (4.00-5.60); RDW 20.9 % (11.9-15.9); WHITE BLOOD COUNT 4.2 K/mm3 (4.0-10.0)
[2023-05-19 19:29] LABS: POTASSIUM 3.6 mmol/L (3.5-5.1)
[2023-05-19 19:34] LABS: CALCIUM 8.5 mg/dL (8.5-10.1)
[2023-05-19 19:35] LABS: ALBUMIN 3.1 g/dl (3.4-5.0); BLOOD UREA NITROGEN 7.1 mg/dL (7-18)
[2023-05-19 19:38] LABS: CREATININE 0.8 mg/dL (0.55-1.3)
[2023-05-19 19:39] LABS: BILIRUBIN,TOTAL 0.3 mg/dL (0.2-1); TOT PROT 6.4 g/dl (6.4-8.2)
[2023-05-19 21:01] LABS: N-TERMINAL BNP 135.9 pg/ml (5-125)
[2023-05-20] MEDS ORDERED: AZITHROMYCIN 500 MG TABLET PO ONE (03:14)
[2023-05-20] MEDS ORDERED: AZITHROMYCIN 500 MG TABLET ONE (05:18)
[2023-05-20] MEDS ORDERED: chlordiazePOXIDE HCL 25 MG CAPSULE ONE (05:25)
[2023-05-20] MEDS ORDERED: chlordiazePOXIDE HCL 25 MG CAPSULE PO ONE (05:39)
== END 2023-05-20 06:08 | disposition home or self-care (01) ==
LOC: JER 14:52
DX: J18.9 Pneumonia, unspecified organism (principal); F10.29 Alcohol dependence with unspecified alcohol-induced disorder; R05.9 Cough, unspecified; R06.02 Shortness of breath; R07.89 Other chest pain
CPT/HCPCS: 36415; 71046-TC-FY; 80053; 83880; 84484; 85027; 99284-25

== ENCOUNTER 2023-05-20 14:09 | Emergency (ER) | payer OTHER ==
[2023-05-20 14:20] VITALS: BP 136/111; PULSE 92; RESP 19; TEMP 97.9; BMI 39.1
[2023-05-20] MEDS ORDERED: AZITHROMYCIN 500 MG TABLET PO ONE (20:12)
[2023-05-20] MEDS ORDERED: AZITHROMYCIN 500 MG TABLET ONE (20:18)
== END 2023-05-21 06:38 | disposition home or self-care (01) ==
LOC: JER 14:09
DX: S00.81XA Abrasion of other part of head, initial encounter (principal); F10.920 Alcohol use, unspecified with intoxication, uncomplicated; Y90.9 Presence of alcohol in blood, level not specified; W19.XXXA Unspecified fall, initial encounter; Y92.9 Unspecified place or not applicable
CPT/HCPCS: 99284-25

== ENCOUNTER 2023-05-26 13:16 | Emergency (ER) | payer OTHER ==
[2023-05-26] MEDS ORDERED: chlordiazePOXIDE HCL 25 MG CAPSULE PO ONE (14:49)
[2023-05-26] MEDS ORDERED: METHOCARBAMOL 750 MG TAB PO ONE (14:50)
[2023-05-26] MEDS ORDERED: chlordiazePOXIDE HCL 25 MG CAPSULE ONE (15:04)
[2023-05-26] MEDS ORDERED: METHOCARBAMOL 500 MG TABLET ONE (15:04)
[2023-05-26 15:45] VITALS: BP 157/69; PULSE 84; RESP 22; TEMP 97.4; BMI 40.1
== END 2023-05-26 17:25 | disposition home or self-care (01) ==
LOC: JER 13:16
DX: M54.9 Dorsalgia, unspecified (principal); G89.29 Other chronic pain; R07.9 Chest pain, unspecified; Z73.9 Problem related to life management difficulty, unspecified
CPT/HCPCS: 99283-25

== ENCOUNTER 2023-05-27 19:40 | Emergency (ER) | payer OTHER ==
[2023-05-27 20:06] VITALS: BP 135/65; PULSE 87; RESP 18; TEMP 98; BMI 39.1
== END 2023-05-28 06:17 | disposition home or self-care (01) ==
LOC: JER 19:40
DX: M54.9 Dorsalgia, unspecified (principal); Z59.00 Homelessness unspecified
CPT/HCPCS: 99282-25

== ENCOUNTER 2023-05-30 13:40 | Emergency (ER) | payer OTHER ==
[2023-05-30 14:14] VITALS: BP 97/49; PULSE 96; RESP 16; TEMP 98.2; BMI 35.9
== END 2023-05-30 16:21 | disposition left against medical advice (07) ==
LOC: JER 13:40
DX: Z04.3 Encounter for examination and observation following other accident (principal); Z53.21 Procedure and treatment not carried out due to patient leaving prior to being seen by health care provider
CPT/HCPCS: 99283-25

== ENCOUNTER 2023-06-27 12:01 | Emergency (ER) | payer OTHER ==
[2023-06-27 13:35] VITALS: BP 105/56; TEMP 97.5; BMI 34.9
[2023-06-27 18:14] VITALS: PULSE 85; RESP 20
== END 2023-06-28 02:48 | disposition home or self-care (01) ==
LOC: JER 12:01
DX: F10.920 Alcohol use, unspecified with intoxication, uncomplicated (principal); R09.02 Hypoxemia; Y90.9 Presence of alcohol in blood, level not specified
CPT/HCPCS: 99281-25